=== PATIENT | male | born 1940 | race Caucasian/White ===

== ENCOUNTER 2023-04-14 10:20 | Outpatient (OUT) | payer MEDICARE, SELFPAY ==
[2023-04-14 11:19] LABS: Anion Gap 11.1; BUN Creatinine Ratio 19.9; Calcium 9.2 mg/dL (8.5-10.1); Carbon Dioxide 30.8 mmol/L (21.0-32.0); Chloride 103 mmol/L (98-107); Estimated GFR (African America 28 (>=60); Estimated GFR (Non-African Ame 23 (>=60); Glucose 108 mg/dL (74-106); Potassium 3.9 mmol/L (3.5-5.1); Sodium 141 mmol/L (136-145)
== END 2023-04-14 10:21 | disposition home or self-care (01) ==
LOC: LAB 10:23
PROVIDERS: PCP Internal Medicine; Visit Provider Nurse Practitioner
DX: I50.22 Chronic systolic (congestive) heart failure (principal)
CPT/HCPCS: 36415; 80048

== ENCOUNTER 2023-04-21 10:19 | Outpatient (OUT) | payer MEDICARE, SELFPAY ==
[2023-04-21 12:09] LABS: Free T4 0.92 ng/dL (0.76-1.46)
[2023-04-22 04:11] LABS: Triiodothyronine (T3) 67 ng/dL (71-180)
== END 2023-04-21 10:20 | disposition home or self-care (01) ==
LOC: LAB 10:20
PROVIDERS: PCP Internal Medicine; Visit Provider Internal Medicine
DX: E03.2 Hypothyroidism due to medicaments and other exogenous substances (principal)
CPT/HCPCS: 36415; 84439; 84443; 84480

== ENCOUNTER 2023-04-21 10:42 | Outpatient (OUT) | payer MEDICARE, SELFPAY ==
[2023-04-21 11:25] LABS: Anion Gap 12.6; BUN Creatinine Ratio 20.4; Calcium 8.8 mg/dL (8.5-10.1); Carbon Dioxide 29.2 mmol/L (21.0-32.0); Chloride 101 mmol/L (98-107); Estimated GFR (African America 28 (>=60); Estimated GFR (Non-African Ame 23 (>=60); Glucose 129 mg/dL (74-106); Potassium 3.8 mmol/L (3.5-5.1); Sodium 139 mmol/L (136-145)
== END 2023-04-21 10:43 | disposition home or self-care (01) ==
LOC: LAB 10:43
PROVIDERS: PCP Internal Medicine; Visit Provider Nurse Practitioner
DX: E03.2 Hypothyroidism due to medicaments and other exogenous substances (principal); I50.22 Chronic systolic (congestive) heart failure
CPT/HCPCS: 36415; 80048; 84439; 84443; 84480

== ENCOUNTER 2023-05-25 08:33 | Outpatient (OUT) | payer MEDICARE, SELFPAY ==
[2023-05-25 09:22] LABS: Anion Gap 14.3; BUN Creatinine Ratio 19.7; Calcium 8.7 mg/dL (8.5-10.1); Carbon Dioxide 29.7 mmol/L (21.0-32.0); Chloride 101 mmol/L (98-107); Estimated GFR (African America 32 (>=60); Estimated GFR (Non-African Ame 26 (>=60); Glucose 131 mg/dL (74-106); Magnesium 2.2 mg/dL (1.8-2.4); Phosphorus 4.1 mg/dL (2.6-4.7); Sodium 141 mmol/L (136-145)
[2023-05-25 09:28] LABS: Hematocrit 39.5 % (42.0-54.0); Mean Corpuscular HGB Conc 32.9 g/dL (29.9-35.2); Mean Corpuscular Hemoglobin 30.9 pg (25.9-34.0); Mean Corpuscular Volume 93.8 fL (80.0-94.0); Mean Platelet Volume 9.8 fL (9.5-13.5); Platelet Count 196 10^3/uL (150-450); Red Blood Count 4.21 10^6/uL (4.70-6.10); Red Cell Distribution Width 14.8 % (11.0-15.0); White Blood Count 7.6 10^3/uL (4.0-11.0)
[2023-05-25 09:52] LABS: Bilirubin Urine NEGATIVE (NEGATIVE); Blood Urine NEGATIVE (NEGATIVE); Clarity Urine CLEAR (CLEAR); Color Urine LT. YELLOW (YELLOW); Glucose Urine UA NEGATIVE (NEGATIVE); Ketones Urine NEGATIVE (NEGATIVE); Leukocyte Esterase Urine NEGATIVE (NEGATIVE); Nitrite Urine NEGATIVE (NEGATIVE); Protein Urine NEGATIVE (NEG/TRACE); Urobilinogen Urine 0.2 EU/dL (0.2-1.0)
[2023-05-25 10:30] LABS: Creatinine Urine Random 21.98 mg/dL (20.00-300.00); Protein Creatinine Ratio Urine 0.84; Total Protein Urine Random 18.5 mg/dL (<=11.9)
[2023-05-26 11:12] LABS: PTH, Intact 73 pg/mL (15-65)
== END 2023-05-25 08:34 | disposition home or self-care (01) ==
LOC: LAB 08:33
PROVIDERS: PCP Internal Medicine
DX: N18.4 Chronic kidney disease, stage 4 (severe) (principal)
CPT/HCPCS: 36415; 80048; 81003; 82306; 82570; 83735; 83970; 84100; 84156; 85027

== ENCOUNTER 2023-06-06 08:35 | Outpatient (OUT) | payer MEDICARE, SELFPAY ==
[2023-06-06 09:48] LABS: Anion Gap 11.3; BUN Creatinine Ratio 21.9; Calcium 8.7 mg/dL (8.5-10.1); Carbon Dioxide 30.4 mmol/L (21.0-32.0); Chloride 99 mmol/L (98-107); Estimated GFR (African America 28 (>=60); Estimated GFR (Non-African Ame 23 (>=60); Glucose 188 mg/dL (74-106); Potassium 3.7 mmol/L (3.5-5.1); Sodium 137 mmol/L (136-145)
== END 2023-06-06 08:36 | disposition home or self-care (01) ==
LOC: LAB 08:36
PROVIDERS: PCP Internal Medicine; Visit Provider Nurse Practitioner
DX: I50.41 Acute combined systolic (congestive) and diastolic (congestive) heart failure (principal)
CPT/HCPCS: 36415; 80048

== ENCOUNTER 2023-06-13 09:28 | Outpatient (OUT) | payer MEDICARE, SELFPAY ==
--- NOTE | 2023-06-13 09:32 | XR_ITS ---
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 TECHNIQUE: PA and lateral views of the chest. FINDINGS: The cardiomediastinal silhouette is enlarged. Left-sided cardiac pacemaker. No focal consolidation is identified. There is no pneumothorax. No pleural effusion is noted. The osseous structures are intact. XR/XR chest 2V IMPRESSION: Cardiomegaly. Electronically authenticated by: MICHAELA NGUYEN Date: 06/13/2023 09:49
== END 2023-06-13 09:29 | disposition home or self-care (01) ==
LOC: RAD 09:28
PROVIDERS: PCP Internal Medicine; Visit Provider Internal Medicine Cardiovascular Disease
DX: I42.0 Dilated cardiomyopathy (principal)
CPT/HCPCS: 71046

== ENCOUNTER 2023-06-30 14:46 | Outpatient (OUT) | payer MEDICARE, SELFPAY ==
[2023-06-30 15:39] LABS: Free T4 0.86 ng/dL (0.76-1.46)
[2023-07-01 05:07] LABS: Triiodothyronine (T3) 68 ng/dL (71-180)
== END 2023-06-30 14:47 | disposition home or self-care (01) ==
LOC: LAB 14:46
PROVIDERS: PCP Internal Medicine; Visit Provider Internal Medicine
DX: E03.2 Hypothyroidism due to medicaments and other exogenous substances (principal)
CPT/HCPCS: 36415; 84439; 84443; 84480

== ENCOUNTER 2023-06-30 14:49 | Outpatient (OUT) | payer MEDICARE, SELFPAY ==
[2023-06-30 15:25] LABS: Anion Gap 5.9; BUN Creatinine Ratio 25.6; Calcium 9.3 mg/dL (8.5-10.1); Carbon Dioxide 35.1 mmol/L (21.0-32.0); Chloride 102 mmol/L (98-107); Estimated GFR (African America 31 (>=60); Estimated GFR (Non-African Ame 25 (>=60); Glucose 97 mg/dL (74-106); Sodium 139 mmol/L (136-145)
== END 2023-06-30 14:50 | disposition home or self-care (01) ==
LOC: LAB 14:50
PROVIDERS: PCP Internal Medicine; Visit Provider Internal Medicine Nephrology
DX: E03.2 Hypothyroidism due to medicaments and other exogenous substances (principal); N18.4 Chronic kidney disease, stage 4 (severe)
CPT/HCPCS: 36415; 80048; 84439; 84443; 84480

== ENCOUNTER 2023-09-11 09:43 | Outpatient (OUT) | payer MEDICARE, SELFPAY ==
--- NOTE | 2023-09-11 11:16 | CA_ITS ---
Patient Name: DELANO REN MR#: [id number] : 1940 Exam Date: 09/11/2023 Ordering Doctor: MRS. MADDI SONG NP ECHOCARDIOGRAM REPORT PROCEDURE: CA ECHO LIMITED INDICATIONS: Chronic systolic heart failure, pace/defib COMPARISON: None. DESCRIPTION: Limited ECHOCARDIOGRAM Real-time transthoracic echocardiography with 2D and M-mode performed. QUALITY: Technical quality was good. Limited echocardiogram per physician order. LEFT VENTRICLE: Severe dilatation. Mild concentric left ventricular hypertrophy. LV EF: Global left ventricular systolic function is severely reduced; visually estimated ejection fraction is 25 to 30%. Calculated left ventricular ejection fraction is 27%. Unable to assess regional wall motion abnormality; consider contrast study for better delineation of endocardial borders. LEFT ATRIUM: Severe dilatation. RIGHT ATRIUM: Severe dilatation. RIGHT VENTRICLE: Appears enlarged. Systolic function appears preserved. Pacer wire present. TRICUSPID VALVE: Normal mobility and thickness. MITRAL VALVE: Normal mobility and thickness. There is no mitral annular calcification. AORTIC VALVE: Normal trileaflet appearance. Multifocal calcifications. AORTIC ROOT: Normal diameter and appearance. PULMONIC VALVE: Normal thickness and mobility. PERICARDIUM: No evidence of pericardial effusion. IVC: IVC is normal in size, does not fully collapse. CONCLUSION: 1. Global left ventricular systolic function is severely reduced; visually estimated ejection fraction is 25 to 30% 2. Severe left ventricular dilatation 3. Mildly increased left ventricular wall thickness 4. The right ventricle appears enlarged with preserved systolic function A limited echocardiogram was performed Adult Echocardiography Procedure Report Left Ventricle LVEDD (3.7 - 5.6 cm): 7.05 cm LVESD (2.2 - 4.0 cm): 5.44 cm LVIVS thickness (0.6 - 1.2 cm): 1.08 cm LVPW thickness (0.5 - 1.0 cm): 1.05 cm LVOT Diameter 2.35 cm Left Atrium LA Volume Index (2D A2C): 49.82 ml/m2 Left Atrium Systolic Dimension: 4.27 cm Mitral Valve Right Ventricle Aorta AO Root Diam: 3.40 cm Ascending Ao Diam: 2.96 cm Aortic Valve Tricuspid Valve Pulmonic Valve Right Atrium Right Atrium Systolic Pressure: 90.73 ml, 90.73 ml Dictated by: Sriram Rick M.D. on 09/12/2023 at 16:08 Approved by: Sriram Rick M.D. on 09/12/2023 at 16:17
== END 2023-09-11 09:44 | disposition home or self-care (01) ==
LOC: CARD 09:43
PROVIDERS: PCP Internal Medicine; Visit Provider Nurse Practitioner Acute Care
DX: I50.22 Chronic systolic (congestive) heart failure (principal)
CPT/HCPCS: 93308

== ENCOUNTER 2023-09-28 08:16 | Outpatient (OUT) | payer MEDICARE, SELFPAY ==
[2023-09-28 09:24] LABS: Thyroid Stimulating Hormone 17.301 uIU/mL (0.358-3.740)
[2023-09-29 04:07] LABS: Triiodothyronine (T3) 72 ng/dL (71-180)
== END 2023-09-28 08:17 | disposition home or self-care (01) ==
LOC: LAB 08:16
PROVIDERS: PCP Internal Medicine; Visit Provider Internal Medicine
DX: E03.2 Hypothyroidism due to medicaments and other exogenous substances (principal)
CPT/HCPCS: 36415; 84439; 84443; 84480

== ENCOUNTER 2023-09-28 08:17 | Outpatient (OUT) | payer MEDICARE, SELFPAY ==
[2023-09-28 08:38] LABS: Basophils Percent Auto 0.4 % (0.2-2.0); Eosinophils Absolute Auto 0.3 10^3/uL (0.0-0.7); Eosinophils Percent Auto 3.7 % (0.9-7.0); Hematocrit 37.4 % (42.0-54.0); Hemoglobin 12.1 g/dL (14.0-18.0); Immature Granulocytes Abs Auto 0.02 10^3/uL (0.00-0.03); Immature Granulocytes Pct Auto 0.3 % (0.0-0.5); Lymphocytes Absolute Auto 1.5 10^3/uL (1.2-3.8); Lymphocytes Percent Auto 20.4 % (20.5-60.0); Mean Corpuscular HGB Conc 32.4 g/dL (29.9-35.2); Mean Corpuscular Hemoglobin 31.1 pg (25.9-34.0); Mean Corpuscular Volume 96.1 fL (80.0-94.0); Mean Platelet Volume 9.1 fL (9.5-13.5); Monocytes Absolute Auto 0.6 10^3/uL (0.3-0.8); Monocytes Percent Auto 8.6 % (1.7-12.0); Neutrophils Absolute Auto 4.9 10^3/uL (1.4-6.5); Neutrophils Percent Auto 66.6 % (43.0-75.0); Platelet Count 189 10^3/uL (150-450); Red Blood Count 3.89 10^6/uL (4.70-6.10); Red Cell Distribution Width 13.8 % (11.0-15.0); White Blood Count 7.3 10^3/uL (4.0-11.0)
[2023-09-28 08:45] LABS: Bilirubin Urine NEGATIVE (NEGATIVE); Blood Urine NEGATIVE (NEGATIVE); Clarity Urine CLEAR (CLEAR); Color Urine LT. YELLOW (YELLOW); Glucose Urine UA NEGATIVE (NEGATIVE); Ketones Urine NEGATIVE (NEGATIVE); Leukocyte Esterase Urine SMALL (NEGATIVE); Nitrite Urine NEGATIVE (NEGATIVE); Protein Urine NEGATIVE (NEG/TRACE); Urobilinogen Urine 0.2 EU/dL (0.2-1.0); pH Urine 5.5 (5.0-9.0)
[2023-09-28 09:11] LABS: Creatinine Urine Random 19.63 mg/dL (20.00-300.00); Protein Creatinine Ratio Urine 0.43; Total Protein Urine Random 8.5 mg/dL (<=11.9)
[2023-09-28 09:12] LABS: Anion Gap 8.5; Calcium 8.9 mg/dL (8.5-10.1); Carbon Dioxide 35.2 mmol/L (21.0-32.0); Chloride 99 mmol/L (98-107); Estimated GFR (African America 32 (>=60); Estimated GFR (Non-African Ame 27 (>=60); Glucose 149 mg/dL (74-106); Magnesium 2.3 mg/dL (1.8-2.4); Phosphorus 3.6 mg/dL (2.6-4.7); Potassium 3.7 mmol/L (3.5-5.1); Sodium 139 mmol/L (136-145)
[2023-09-29 12:02] LABS: PTH, Intact 47 pg/mL (15-65)
== END 2023-09-28 08:18 | disposition home or self-care (01) ==
LOC: LAB 08:19
PROVIDERS: PCP Internal Medicine; Visit Provider Internal Medicine Nephrology
DX: E03.2 Hypothyroidism due to medicaments and other exogenous substances (principal); N18.4 Chronic kidney disease, stage 4 (severe)
CPT/HCPCS: 36415; 80048; 81003; 82306; 82570; 83735; 83970; 84100; 84156; 84439; 84443; 84480; 85025

== ENCOUNTER 2023-12-19 07:32 | Outpatient (OUT) | payer MEDICARE, SELFPAY ==
--- OUTSIDE RECORDS SUMMARY | 2023-12-19 07:35 | XMS_ITS | CCD ---
Author Name Unknown Address [address] [place] [address] Organization [facility] Care Team Providers Care Loom Blower Name Role Phone GILMER SALAZAR Attending Unavailable GILMER SALAZAR Admitting Unavailable ARNIE LINDA Referring Unavailable ARNIE LINDA Primary Care Unavailable DO Arnie Linda Primary Care Provider CHARLENE Kelly Attending Provider MD Kalia Sánchez Referring Provider DO Chivo Keller II Attending Provider MD Kalia Sánchez Referring Provider [phone] DO Chivo Keller II Attending Provider MD Ramesh Rascon Attending Provider [phone] DO Arnie Linda Primary Care Provider [phone] MD Ramesh Rascon Attending Provider MD Kalia Sánchez Referring Provider DO Chivo Keller II Attending Provider Arnie Linda Unavailable LAURAROXANNE Admitting Unavailable LAURA, ROXANNE Attending Unavailable LAURA, ROXANNE Consulting Unavailable MADDI, DR SORENSON Primary Care Unavailable MISC, DR VELASQUEZ Consulting Unavailable MISC, DR VELASQUEZ Admitting Unavailable MISC, DR VELASQUEZ Attending Unavailable MADDI, DR SORENSON Primary Care Unavailable GRIGSBY ., DR RUPINDER Staples Admitting Unavailable GRIGSBY ., DR RUPINDER Staples Attending Unavailable RUCKER, DR MICHAELA Jacobson Consulting Unavailable MADDI, DR SORENSON Primary Care Unavailable GRIGSBY ., DR RUPINDER Staples Consulting Unavailable SHARA, NICK Consulting Unavailable ANTHONY TRACEY Consulting Unavailable MADDI, DR SORENSON Consulting Unavailable BALL, DR SORENSON Primary Care Unavailable BALL, DR SORENSON Admitting Unavailable BALL, DR SORENSON Attending Unavailable MISC, DR VELASQUEZ Consulting Unavailable MISC, DR VELASQUEZ Admitting Unavailable MISC, DR VELASQUEZ Attending Unavailable BALL, DR SORENSON Primary Care Unavailable BALL, DR SORENSON Consulting Unavailable BALL, DR SORENSON Primary Care Unavailable BALL, DR SORENSON Admitting Unavailable BALL, DR SORENSON Attending Unavailable BALL, DR SORENSON Primary Care Unavailable BALL, DR SORENSON Consulting Unavailable BALL, DR SORENSON Admitting Unavailable BALL, DR SORENSON Attending Unavailable LORI, ENRRIQUE Admitting Unavailable LORI, ENRRIQUE Attending Unavailable LORI, ENRRIQUE Consulting Unavailable BALL, DR SORENSON Primary Care Unavailable KUNAL BUTLER, AVERY Pedroza Admitting Unavailab shaina SYED MD, AVERY Pedroza Attending Unavailab le MISC, DR VELASQUEZ Consulting Unavailable BALL, DR SORENSON Primary Care Unavailable BALL, DR SORENSON Consulting Unavailable BALL, DR SORENSON Admitting Unavailable BALL, DR SORENSON Primary Care Unavailable BALL, DR SORENSON Attending Unavailable MISC, DR VELASQUEZ Consulting Unavailable MISC, DR VELASQUEZ Admitting Unavailable MISC, DR VELASQUEZ Attending Unavailable BALL, DR SORENSON Primary Care Unavailable BALL, DR SORENSON Consulting Unavailable BALL, DR SORENSON Admitting Unavailable BALL, DR SORENSON Attending Unavailable BALL, DR SORENSON Primary Care Unavailable MISC, DR VELASQUEZ Consulting Unavailable MISC, DR VELASQUEZ Admitting Unavailable MISC, DR VELASQUEZ Attending Unavailable BALL, DR SORENSON Primary Care Unavailable BALL, DR SORENSON Attending Unavailable BALL, DR SORENSON Consulting Unavailable BALL, DR SORENSON Primary Care Unavailable BALL, DR SORENSON Admitting Unavailable MISC, DR VELASQUEZ Consulting Unavailable MISC, DR VELASQUEZ Admitting Unavailable MISC, DR VELASQUEZ Attending Unavailable BALL, DR SORENSON Primary Care Unavailable MOUKARBEL, DR SEYMOUR Consulting Unavailable MISC, DR VELASQUEZ Admitting Unavailable MISC, DR VELASQUEZ Attending Unavailable WEST, JJ Valdes Consulting Unavailable BALL, DR SORENSON Primary Care Unavailable MISC, DR VELASQUEZ Consulting Unavailable BALL, DR SORENSON Attending Unavailable BALL, DR SORENSON Consulting Unavailable BALL, DR SORENSON Primary Care Unavailable BALL, DR SORENSON Admitting Unavailable ZIEBER, DR MALENA Jacobson Consulting Unavailable BALL, DR SORENSON Attending Unavailable BALL, DR SORENSON Consulting Unavailable BALL, DR SORENSON Primary Care Unavailable BALL, DR SORENSON Admitting Unavailable LORI, ENRRIQUE Admitting Unavailable LORI, ENRRIQUE Attending Unavailable BALL, DR SORENSON Primary Care Unavailable BALL, DR SORENSON Consulting Unavailable LAURA, ROXANNE Admitting Unavailable LAURA, ROXANNE Attending Unavailable BALL, DR SORENSON Primary Care Unavailable KUNAL BUTLER, AVERY Pedroza Admitting Unavailab shaina SYED MD, AVERY Pedroza Attending Unavailab shaina SYED MD, AVERY Pedroza Consulting Unavailab shaina LINDA, DR SORENSON Primary Care Unavailable MOUKARBEL, DR SEYMOUR Admitting Unavailable MOUKARBEL, DR SEYMOUR Attending Unavailable BALL, DR SORENSON Primary Care Unavailable Adamowicz IIChivo Admitting Unavaila Kalia Gibson Referring Unavailable Arnie Linda Primary Care Unavailable Arianna APARICIO, Chivo Howell Attending Unavaila DO Arnie Tom Primary Care Provider [phone] MD Kalia Sánchez Referring Provider [phone] Arianna APARICIO, DO Chivo Howell Attending Provider MARIUSZ DEGROOT Referring Unavailable YISSEL, DAWN Attending Unavailable SHAUN ISABEL Attending Unavailable MARIUSZ DEGROOT Referring Unavailable MARIUSZ DEGROOT Admitting Unavailable MARIUSZ DEGROOT Attending Unavailable DAWN NOLASCO Attending Unavailable MARIUSZ DEGROOT Referring Unavailable MADDI SONG Attending Unavailable MALI TIDWELL Attending Unavailable MIKAYLA, MARIUSZ Attending Unavailable MADDI SONG Attending Unavailable Allergies Allergy Classification Reported Allergen(s) Allergy Type Date of Onset Reaction(s) Facility (3 sources) black walnut pollen extract; Translations: [[id number] REDUCTASE INHIBITORS] Drug Allergy 05-16-20 18 [facility] Repository (9 sources) traMADol; Translations: [TRAMADOL] Drug Allergy 03-30-20 22 Itching [facility] Repository (7 sources) Vdgopjn-DBI-JwT Reductase Inhibitor; Translations: [Xmysvfw-YCN-AjA Reductase Inhibitor] Allergy to substance 06-03-20 22 Muscle Pain [facility] (13 sources) Albuterol Drug Allergy Unknown Generate Other (17 sources) ezetimibe Drug Allergy Unknown Generate Other (13 sources) HMG-CoA reductase inhibitor Drug allergy Unknown Generate Other (19 sources) Niacin Drug Allergy Unknown Generate Other (17 sources) Simvastatin Drug Allergy Unknown Generate Other (8 sources) Statins Depletion *DIETARY PRODUCTS/DIETARY MANAGE Propensity to adverse reactions Unknown Generate Other (4 sources) Allergies Reconciled Propensity to adverse reactions Unknown Generate Other (8 sources) Albuterol *ANTIASTHMATIC AND BRONCHODILATOR AGENTS Propensity to adverse reactions Comment:dedrick lala more with this Generate Other (4 sources) patient allergy list reviewed by nurse or physicia Propensity to adverse reactions 04-04-20 Comment:Done Generate Other (1 source) traMADol Drug Allergy 03-03-20 [facility] Repository (2 sources) Niacin Drug Allergy Unknown Generate Other Medications Current Medications Medication Drug Class(es) Dates Sig (Normalized) Sig (Original) allopurinol 100 mg oral tablet (20 sources) Xanthine Oxidase Inhibitor Start: 06-09-2021 take 100 mg by mouth once daily Allopurinol Active 100 MG PO Daily June 08, 2021 11:00pm amLODIPine 10 mg oral tablet (20 sources) Dihydropyridine Calcium Channel Benton Start: 07-21-2022 take 10 mg by mouth once daily Amlodipine Active 10 MG PO Daily July 20, 2022 11:00pm Start: 08-02-2021 End: 08-31-2021 take 10 mg by mouth once daily Amlodipine Discontinued 10 MG PO Daily August 01, 2021 11:00pm August 31, 2021 8:54am Start: 06-09-2021 End: 08-02-2021 take 5 mg by mouth once daily Amlodipine Discontinued 5 MG PO Daily June 08, 2021 11:00pm August 02, 2021 12:35pm apixaban 2.5 mg oral tablet (11 sources) Factor Xa Inhibitor Start: 03-03-2023 take 1 tablet by mouth twice daily Apixaban (Eliquis) 2.5 mg Tablet Active 2.5 MG PO Twice daily March 02, 2023 11:00pm Aspir-81 (7 sources) Aspir-81 Active bumetanide 1 mg oral tablet (20 sources) Loop Diuretic Start: 08-02-2021 take 1 mg by mouth once daily Bumetanide Active 1 MG PO Daily August 02, 2021 12:40pm Start: 06-09-2021 End: 08-02-2021 Bumetanide Discontinued 1 MG PO Q48H 15 June 08, 2021 11:00pm August 02, 2021 12:40pm Bumex 1 MG 2 Ora lly Once a day Active cholecalciferol 0.125 mg oral capsule (8 sources) Vitamin D Start: 06-09-2021 take 125 ug by mouth once daily Cholecalciferol (Vitamin D3) Active 125 MCG PO Daily June 08, 2021 11:00pm take 4 tablets by mo uth every twenty-four hours Vitamin D3 125 MCG (5000 UT) 4 tablet Orally Once a day Active Contour Next Test - (17 sources) Contour Next Wendi t - as directed In Vitro Active ezetimibe 10 mg oral tablet (11 sources) Dietary Cholesterol Absorption Inhibitor Start: take 1 tablet by mouth once daily Ezetimibe (Zetia) 10 mg Tablet Active 10 MG PO Daily March 02, 2023 11:00pm hydrALAZINE hydrochloride 100 mg oral tablet (20 sources) Arteriolar Vasodilator Start: take 100 mg by mouth three times daily Hydralazine Active 100 MG PO Three times daily June 08, 2021 11:00pm Start: 06-09-2021 End: 08-02-2021 take 100 mg by mouth three times daily Hydralazine Discontinued 100 MG PO Three times daily June 08, 2021 11:00pm August 02, 2021 12:38pm isosorbide dinitrate 10 mg oral tablet (20 sources) Nitrate Vasodilator Start: 07-21-2022 take 10 mg by mouth three times daily Isosorbide Dinitrate Active 10 MG PO Three times daily July 20, 2022 11:00pm Start: 06-09-2021 End: 08-31-2021 take 10 mg by mouth three times daily Isosorbide Dinitrate Discontinued 10 MG PO Three times daily June 08, 2021 11:00pm August 31, 2021 8:56am methIMAzole 10 mg oral tablet (20 sources) Thyroid Hormone Synthesis Inhibitor Start: 10-06-2022 take 0.5 tablet by mouth once daily methIMAzole 10 MG 1/2 tablet Orally Once a day Sep, Active Start: 02-25-2022 take 20 mg by mouth twice rohan y Methimazole Active 20 MG PO Twice daily February 24, 2022 11:00pm 24 hr metoprolol succinate 50 mg extended release oral tablet (20 sources) beta-Adrenergic Benton Start: 08-02-2021 take 100 mg by mouth once daily Metoprolol Succinate Active 100 MG PO Daily August 01, 2021 11:00pm Start: 06-09-2021 End: 08-02-2021 take 25 mg by mouth once daily Metoprolol Succinate Di scontinued 25 MG PO Daily June 08, 2021 11:00pm August 02, 2021 12:37pm take 1 tablet by dakotah th every twenty-four hours Metoprolol Succinate ER 100 MG 1 tablet Orally Once a day Active niacin 500 mg oral tablet (20 sources) Nicotinic Acid Start: 06-09-2021 take 500 mg by mouth once daily Niacin Active 500 MG PO Daily June 08, 2021 11:00pm paxlovid (300/100) 20 x 150 mg & 10 x 100mg tablet therapy pack (2 sources) Start: 01-11-2023 take 3 tablets by mouth every twelve hours Paxlovid (300/100) 20 x 150 MG & 10 x 100MG 3 tablets Orally Twice a day for 5 day(s) Dec, Active potassium chloride 10 meq extended release oral tablet (20 sources) Start: 06-09-2021 Potassium Chloride (Klor-Con 10) 10 mEq Tablet Extended Release Active 10 MEQ PO Daily June 08, 2021 11:00pm 30 actuat umeclidinium 0.0625 mg/actuat / vilanterol 0.025 mg/actuat dry powder inhaler (17 sources) Anticholinergic, beta2-Adrenergic Agonist Anoro Ellipta 62.5-25 MCG/ACT USE 1 INHALATION BY MOUTH DAILY Active Anoro Ellipta 62 .5-25 MCG/ACT USE 1 INHALATION BY MOUTH DAILY Active Vitamin D3 125 MCG (5000 UT) (15 sources) take 4 tablets by mouth once daily Vitamin D3 125 MCG (5000 UT) 4 tablet Orally Once a day Active {20 (nirmatrelvir 150 MG Oral Tablet) / 10 (ritonavir 100 MG Oral Tablet) } Pack [Paxlovid 5-Day] (12 sources) Start: 01-11-2023 take 3 tablets by mouth every twelve hours Paxlovid (300/100) 20 x 150 MG & 10 x 100MG 3 tablets Orally Twice a day for 5 day(s) Dec, Active Completed/Discontinued Medications Medication Drug Class(es) Dates Sig (Normalized) Sig (Original) acetaminophen 500 mg oral tablet (6 sources) Start: 06-09-2021 End: 07-14-2021 take 500 mg by mouth every six hours Acetaminophen Discontinued 500 MG PO Q6H 120 30 June 08, 2021 11:00pm July 14, 2021 7:42am acetaminophen 325 mg / HYDROcodone bitartrate 5 mg oral tablet (6 sources) Opioid Agonist Start: 08-22-2021 End: 08-31-2021 take 1 tablet by mouth every six hours Hydrocodone-Acetami nophen Discontinued 1 TAB PO Q6H 28 7 August 22, 2021 August 31, 2021 8:56am Anoro Ellipta (12 sources) Start: 08-02-2021 End: 03-03-2023 take 62.5 ug by inhalation once daily Anoro Ellipta Discontinued 62.5 MCG INHALATION Daily August 02, 2021 12:40pm March 03, 2023 12:44pm Start: 08-02-2021 take 62.5 ug by inha lation once daily Anoro Ellipta Active 62.5 MCG INHALATION Daily August 02, 2021 12:40pm Start: 08-02-2021 take 62.5 ug by inha lation once daily Anoro Ellipta Active 62.5 MCG INHALATION Daily August 02, 2021 1:40pm Start: 06-09-2021 End: 08-02-2021 take 62.5 ug by inhalation once daily Anoro Ellipta Discontinued 62.5 mcg inhalation Daily 0 June 08, 2021 11:00pm August 02, 2021 12:40pm Start: 06-09-2021 End: 08-02-2021 take 62.5 ug by inhalation once daily Anoro Ellipta Discontinued 62.5 mcg inhalation Daily 0 June 09, 2021 12:00am August 02, 2021 1:40pm aspirin 81 mg delayed release oral tablet (20 sources) Platelet Aggregation Inhibitor, Nonsteroidal Anti-inflammatory Drug Start: 02-25-2022 End: 09-01-2023 take 81 mg by mouth once daily Aspirin Discontinued 81 MG PO Daily February 24, 2022 11:00pm September 01, 2023 1:51pm Start: 06-09-2021 End: 08-02-2021 take 81 mg by mouth once daily Aspirin Discontinued 81 MG PO Daily June 08, 2021 11:00pm August 02, 2021 12:37pm take 1 tablet by dakotah th once daily as needed Aspirin 325 mg 325 mg one tab orally daily Not-Taking/PRN take 1 tablet by dakotah th once daily Aspirin 325 mg 325 mg one tab orally daily Not-Taking benazepril hydrochloride 40 mg oral tablet (17 sources) Angiotensin Converting Enzyme Inhibitor take 1 tablet by mouth every twenty-four hours Benazepril HCl 40 MG 1 tablet Orally Once a day Not-Taking/PRN Budesonide (20 sources) Corticosteroid Start: End: Budesonide (Pulmicort Flexhaler) 180 mcg/actuation aerosol powdr breath activated Discontinued 360 MCG INHALATION Twice daily August 01, 2021 11:00pm March 03, 2023 12:44pm Start: 08-02-2021 Budesonide (Pu lmicort Flexhaler) 180 mcg/actuation aerosol powdr breath activated Active 360 MCG INHALATION Twice daily August 01, 2021 11:00pm Start: 08-02-2021 Budesonide (Pu lmicort Flexhaler) 180 mcg/actuation aerosol powdr breath activated Active 360 MCG INHALATION Twice daily August 02, 2021 12:00am Start: 06-09-2021 End: 08-02-2021 take 360 ug by inhalation twice daily Budesonide Inhalation Discontinued 360 mcg inhalation Twice daily June 08, 2021 11:00pm August 02, 2021 12:40pm Start: 06-09-2021 End: 08-02-2021 take 360 ug by inhalation twice daily Budesonide Inhalation Discontinued 360 mcg inhalation Twice daily June 09, 2021 12:00am August 02, 2021 1:40pm Start: 06-01-2021 End: 06-09-2021 take 180 ug by inhalation twice daily Budesonide (Pulmicort Flexhaler) 180 mcg/actuation Aerosol Powdr Breath Activated Discontinued 2 INH INHALATION Twice daily May 31, 2021 11:00pm June 09, 2021 11:48am Start: 06-01-2021 End: 06-09-2021 take 180 ug by inhalation twice daily Budesonide (Pulmicort Flexhaler) 180 mcg/actuation Aerosol Powdr Breath Activated Discontinued 2 INH INHALATION Twice daily June 01, 2021 12:00am June 09, 2021 12:48pm take 1 puff(s) by in halation twice daily Pulmicort Flexhaler 180 MCG/ACT 1 puff Inhalation Twice a day Active Pulmicort Not-Ta ting/PRN Pulmicort Not-Ta ting carvedilol 25 mg oral tablet (17 sources) alpha-Adrenergic Benton, beta-Adrenergic Benton Carvedilol 25 MG Orally Not-Taking/PRN cefTRIAXone 2000 mg injection (6 sources) Cephalosporin Antibacterial Start: 2020 End: 2020 take 2 g intravenously every twenty-four hours Ceftriaxone Discontinued 2 GM IV Q24H 0 June 08, 2021 11:00pm July 14, 2021 7:41am cloNIDine hydrochloride 0.1 mg oral tablet (17 sources) Central alpha-2 Adrenergic Agonist take 1 tablet by mouth every twenty-four hours cloNIDine HCl 0.1 MG 1 tablet at bedtime Orally Once a day Not-Taking/PRN ferrous sulfate 324 mg delayed release oral tablet (20 sources) Start: 2020 End: 2021 take 324 mg by mouth once daily Ferrous Sulfate Discontinued 324 MG PO Daily June 08, 2021 11:00pm July 21, 2022 7:06am take 1 tablet by dakotah th every twenty-four hours Ferrous Sulfate 325 (65 Fe) MG 1 tablet Orally Once a day Active take 1 tablet by mouth once rohan y Ferrous Sulfate 325 (65 Fe) MG 1 tablet Orally Once a day Active lidocaine 0.04 mg/mg medicated patch (6 sources) Antiarrhythmic, Amide Local Anesthetic Start: 06-09-2021 End: 07-14-2021 apply 1 dose topically once daily Lidocaine (Lidocaine Pain Relief) 4 % Adhesive Patch,Medicated Discontinued 2 PATCH TOPICAL Daily June 08, 2021 11:00pm July 14, 2021 7:41am linagliptin 5 mg oral tablet (17 sources) Dipeptidyl Peptidase 4 Inhibitor take 1 tablet by mouth every twenty-four hours Tradjenta 5 MG 1 tablet Orally Once a day Not-Taking/PRN oxyCODONE hydrochloride 5 mg oral tablet (6 sources) Opioid Agonist Start: 06-09-2021 End: 08-02-2021 take 5 mg by mouth every six hours Oxycodone Discontinued 5 MG PO Q6H 28 June 09, 2021 August 02, 2021 12:40pm polyethylene glycol 3350 49767 mg powder for oral solution (6 sources) Osmotic Laxative Start: 06-09-2021 End: 07-14-2021 Polyethylene Glycol 3350 (Miralax) 17 gram Powder In Packet Discontinued 17 GM PO Daily June 08, 2021 11:00pm July 14, 2021 7:40am propranolol hydrochloride 10 mg oral tablet (6 sources) beta-Adrenergic Benton Start: 02-25-2022 End: 07-21-2022 take 1 tablet by mouth three times daily Propranolol (Inderal) 10 mg Tablet Discontinued 10 MG PO Three times daily February 24, 2022 11:00pm July 21, 2022 7:06am Triamcinolone (20 sources) Corticosteroid Start: 04-29-2021 Kenalog -40 mg Apr, 40 mg Start: 05-09-2019 Kenalog -40 mg Apr, 40 mg Start: 01-30-2019 Kenalog -40 mg Jan, 40 mg Problems Active Problems Problem Classification Problem Date Documented Da te Episodic/Chronic Acute posthemorrhagic anemia (11 sources) Acute posthemorrhagic anemia; Translations: [Acute posthemorrhagic anemia] Episodic Administrative/social admission (6 sources) Other reduced mobility; Translations: [Impaired mobility and activities of daily living] 08-31-2021 Episodic Asthma (6 sources) Uncomplicated moderate persistent asthma; Translations: [Moderate persistent asthma, uncomplicated] Onset: 12-22-2022 Chronic Bacterial infection; unspecified site (14 sources) Bacteremia caused by Gram-positive bacteria; Translations: [Bacteremia] Onset: 03-27-2018 Resolved: 10-06-2022 08-31-2021 Episodic Cancer of colon (20 sources) Malignant tumor of colon; Translations: [Malignant neoplasm of colon, unspecified] Onset: 09-01-2023 08-31-2021 Chronic Cardiac dysrhythmias (20 sources) Atrial fibrillation; Translations: [Unspecified atrial fibrillation] Onset: 03-09-2022 08-31-2021 Chronic Chronic kidney disease (20 sources) Chronic kidney disease stage 3; Translations: [Stage 3 chronic kidney disease] Onset: 03-01-2015 08-31-2021 Chronic Chronic kidney disease (2 sources) Chronic kidney disease; Translations: [Chronic kidney disease, stage 3b] Onset: 06-09-2022 Chronic obstructive pulmonary disease and bronchiectasis (20 sources) Chronic obstructive lung disease; Translations: [Chronic obstructive pulmonary disease, unspecified] Onset: 03-19-2018 08-31-2021 Chronic Conduction disorders (20 sources) Cardiac pacemaker in situ; Translations: [Presence of cardiac pacemaker] Onset: 01-15-2020 08-31-2021 Chronic Congestive heart failure; nonhypertensive (20 sources) Heart failure with reduced ejection fraction; Translations: [Unspecified systolic (congestive) heart failure] Onset: 03-09-2022 08-31-2021 Chronic Coronary atherosclerosis and other heart disease (9 sources) Coronary arteriosclerosis; Translations: [Atherosclerotic heart disease of [place] coronary artery without angina pectoris] Onset: 03-09-2022 08-31-2021 Chronic Deficiency and other anemia (6 sources) Iron deficiency anemia; Translations: [Iron deficiency anemia, unspecified] 08-31-2021 Episodic Deficiency and other anemia (2 sources) Iron deficiency anemia, unspecified; Translations: [IRON DEFICIENCY ANEMIA UNSPECIFIED] Onset: 03-09-2022 Episodic Diabetes mellitus with complications (20 sources) Hyperglycemia due to type 2 diabetes mellitus; Translations: [Type 2 diabetes mellitus with hyperglycemia] Onset: 10-16-1957 Chronic Diabetes mellitus without complication (10 sources) Type 2 diabetes mellitus; Translations: [Type 2 diabetes mellitus without complications] 08-31-2021 Chronic Disorders of lipid metabolism (20 sources) Hypercholesterolemia; Translations: [Pure hypercholesterolemia, unspecified] Onset: 10-16-1959 08-31-2021 Chronic Essential hypertension (20 sources) Hypertensive disorder; Translations: [Essential (primary) hypertension] Onset: 06-09-2022 08-31-2021 Chronic Fluid and electrolyte disorders (7 sources) Hypokalemia; Translations: [Hypokalemia] Episodic Gout and other crystal arthropathies (4 sources) Primary gout; Translations: [Acute gouty arthropathy] Onset: 03-13-2019 Chronic Hyperplasia of prostate (8 sources) Lower urinary tract symptoms due to benign prostatic hypertrophy; Translations: [Benign prostatic hyperplasia with lower urinary tract symptoms] Onset: 01-01-2015 Chronic Hypertension with complications and secondary hypertension (12 sources) Chronic kidney disease due to hypertension; Translations: [Hypertensive chronic kidney disease with stage 1 through stage 4 chronic kidney disease, or unspecified chronic kidney disease] Onset: 03-09-2022 Chronic Immunizations and screening for infectious disease (4 sources) Vaccination given; Translations: [Encounter for immunization] Episodic Infective arthritis and osteomyelitis (except that caused by tuberculosis or sexually transmitted disease) (14 sources) Osteomyelitis of vertebra; Translations: [Osteomyelitis of vertebra, lumbar region] Resolved: 10-06-2022 08-31-2021 Chronic Neoplasms of unspecified nature or uncertain behavior (6 sources) Neoplasm of colon; Translations: [Neoplasm of unspecified behavior of digestive system] 08-31-2021 Episodic Nutritional deficiencies (1 source) 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; 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] Onset: 05-18-2022 Chronic Osteoarthritis (20 sources) Osteoarthritis of knee; Translations: [Unilateral primary osteoarthritis, left knee] Chronic Other and unspecified benign neoplasm (7 sources) History of polyp of colon; Translations: [Personal history of colonic polyps] Episodic Other connective tissue disease (17 sources) History of arthroplasty of left knee; Translations: [Presence of left artificial knee joint] Chronic Other connective tissue disease (17 sources) Iliopsoas abscess; Translations: [Psoas muscle abscess] 08-31-2021 Episodic Other diseases of veins and lymphatics (20 sources) Peripheral venous insufficiency; Translations: [Venous insufficiency (chronic) (peripheral)] Episodic Other diseases of veins and lymphatics (1 source) Venous insufficiency (chronic) (peripheral) Episodic Other gastrointestinal disorders (6 sources) Constipation; Translations: [Constipation, unspecified] 08-31-2021 Episodic Other injuries and conditions due to external causes (4 sources) History of fall; Translations: [History of falling] Episodic Other lower respiratory disease (4 sources) Dyspnea; Translations: [Other forms of dyspnea] Episodic Other nervous system disorders (6 sources) Acute postoperative pain; Translations: [Other acute postprocedural pain] 08-31-2021 Episodic Other nutritional; endocrine; and metabolic disorders (4 sources) Obesity; Translations: [Obesity, unspecified] Chronic Other nutritional; endocrine; and metabolic disorders (8 sources) Obese class I; Translations: [Body mass index 33.0-33.9, adult] Onset: 10-16-1959 Chronic Other nutritional; endocrine; and metabolic disorders (17 sources) Hyperuricemia; Translations: [Hyperuricemia without signs of inflammatory arthritis and tophaceous disease] Episodic Other nutritional; endocrine; and metabolic disorders (4 sources) Overweight; Translations: [Overweight] Episodic Other nutritional; endocrine; and metabolic disorders (4 sources) Hyperuricemia without signs of inflammatory arthritis and tophaceous disease; Translations: [Hyperuricemia without signs of inflammatory arthritis and tophaceous disease] Episodic Other nutritional; endocrine; and metabolic disorders (1 source) Hyperuricemia without signs of inflammatory arthritis and tophaceous disease Episodic [place]-; endo-; and myocarditis; cardiomyopathy (except that caused by tuberculosis or sexually transmitted disease) (20 sources) Nonischemic congestive cardiomyopathy; Translations: [Dilated cardiomyopathy] Onset: 04-13-2022 Chronic Pulmonary heart disease (9 sources) Chronic pulmonary heart disease; Translations: [Other chronic pulmonary heart diseases] Onset: 05-23-2018 Chronic Residual codes; unclassified (20 sources) Obstructive sleep apnea syndrome; Translations: [Obstructive sleep apnea (adult) (pediatric)] Chronic Residual codes; unclassified (3 sources) Obstructive sleep apnea (adult) (pediatric) Chronic Residual codes; unclassified (6 sources) Patient encounter status; Translations: [Encounter for prophylactic measures, unspecified] 08-31-2021 Episodic Residual codes; unclassified (6 sources) History of colectomy; Translations: [Acquired absence of other specified parts of digestive tract] 08-31-2021 Episodic Residual codes; unclassified (4 sources) Requires influenza virus vaccination; Translations: [Need for prophylactic vaccination and inoculation, Influenza] Episodic Residual codes; unclassified (4 sources) Tobacco user; Translations: [Tobacco use] Episodic Residual codes; unclassified (2 sources) Other specified health status; Translations: [Other specified health status] Onset: 04-28-2023 Episodic Screening and history of mental health and substance abuse codes (9 sources) Personal history of nicotine dependence; Translations: [History of tobacco use] Onset: 01-18-2017 Episodic Spondylosis; intervertebral disc disorders; other back problems (20 sources) Lumbar spondylosis; Translations: [Spondylosis without myelopathy or radiculopathy, lumbar region] Chronic Spondylosis; intervertebral disc disorders; other back problems (6 sources) Backache; Translations: [Dorsalgia, unspecified] 08-31-2021 Episodic Thyroid disorders (20 sources) Thyrotoxicosis; Translations: [Thyrotoxicosis, unspecified without thyrotoxic crisis or storm] Onset: 03-04-2022 Resolved: 03-14-2022 Chronic Unclassified (1 source) CHRN KIDNEY DISEASE STG 3 UNSP; Translations: [CHRN KIDNEY DISEASE STG 3 UNSP] Onset: 03-09-2022 Unclassified (1 source) CONTACT W/AND (SUSP) EXPOS COVID-19; Translations: [CONTACT W/AND (SUSP) EXPOS COVID-19] Onset: 03-09-2022 Unclassified (2 sources) Longstanding persistent atrial fibrillation; Translations: [Longstanding persistent atrial fibrillation] Onset: 09-22-2023 Past or Other Problems Problem Classification Problem Date Documented Da te Episodic/Chronic Acute and unspecified renal failure (1 source) Acute kidney failure with tubular necrosis; Translations: [ACUTE KIDNEY FAILURE TUBULR NECRSIS] Onset: 05-18-2022 Episodic Cancer of colon (1 source) Personal history of other malignant neoplasm of large intestine; Translations: [PERS HX OTH MALIG NEOPLSM LG INTEST] Onset: 03-09-2022 Episodic Diabetes mellitus without complication (4 sources) Impaired fasting glycemia; Translations: [Impaired fasting glucose] Resolved: 10-06-2022 Episodic Open wounds of head; neck; and trunk (4 sources) Laceration with foreign body of scalp, subsequent encounter; Translations: [Laceration with foreign body of scalp, subsequent encounter] Onset: 12-28-2017 Episodic Other aftercare (1 source) Other senior living (current) drug therapy; Translations: [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] Onset: 03-09-2022 Episodic Other connective tissue disease (4 sources) Pain in limb; Translations: [Pain in soft tissues of limb] Onset: 10-12-2015 Episodic Other ear and sense organ disorders (4 sources) Impacted cerumen; Translations: [Impacted cerumen, bilateral] Resolved: 10-06-2022 Episodic Other lower respiratory disease (4 sources) Other forms of dyspnea; Translations: [OTHER FORMS OF DYSPNEA] Onset: 05-10-2022 Episodic Other nervous system disorders (1 source) Tremor, unspecified; Translations: [TREMOR UNSPECIFIED] Onset: 03-09-2022 Episodic Other non-traumatic joint disorders (4 sources) Arthralgia of the ankle and/or foot; Translations: [Pain in joint, ankle and foot] Onset: 03-13-2019 Episodic Other nutritional; endocrine; and metabolic disorders (4 sources) Simple obesity ; Translations: [Other obesity due to excess calories] Resolved: 02-20-2020 Chronic Other screening for suspected conditions (not mental disorders or infectious disease) (6 sources) Encounter for screening for malignant neoplasm of prostate; Translations: [Blood chemistry abnormal] Onset: 01-03-2023 Resolved: 10-06-2022 Episodic Other skin disorders (4 sources) Sebaceous cyst; Translations: [Sebaceous cyst] Onset: 10-02-2014 Episodic Other upper respiratory infections (4 sources) Acute maxillary sinusitis; Translations: [Acute maxillary sinusitis, unspecified] Onset: 03-27-2018 Episodic Pneumonia (except that caused by tuberculosis or sexually transmitted disease) (7 sources) Pneumonia, unspecified organism; Translations: [Pneumonia] Onset: 03-06-2022 Resolved: 10-06-2022 Episodic Residual codes; unclassified (6 sources) Localized edema; Translations: [Localized edema] Onset: 03-13-2019 Episodic Skin and subcutaneous tissue infections (4 sources) Carbuncle; Translations: [Carbuncle, unspecified] Resolved: 02-23-2021 Episodic Superficial injury; contusion (4 sources) Contusion of other part of head, subsequent encounter; Translations: [Contusion of other part of head, subsequent encounter] Onset: 12-28-2017 Episodic Unclassified (7 sources) Other eosinophilia; Translations: [Other eosinophilia] Viral infection (1 source) COVID-19 Results Test Name Value Interpretation Reference Range Facility Office [place] 09-22-2023 Follow-up visit [id number] Shanti Ren 1940 M Date Provider Department [place] 09/22/2023 [facility] YOUS[facility] Family History Problem Relation Age of Onset Diabetes Mother Heart disease Father Glaucoma Brother Diabetes Maternal Grandmother Clotting disorder Other Family Status - Relation Status Age at Mother Father Brother Maternal Grandmother Other Level of Service:90689 ND OFFICE/OUTPATIENT ESTABLISHED LOW MDM 20-29 MIN Normal [facility] Alanine aminotransferase [En zymatic activity/volume] in Serum or PlasmaOrdered By: Leigha Nelson on 08-30-2023 ALT [Catalytic activity/Vol] 20 U/L 7-52 [facility] Albumin [Mass/volume] in Ser um or Plasma by Bromocresol green (BCG) dye binding methoOrdered By: Leigha Nelson on 08-30-2023 Albumin BCG dye [Mass/Vol] 4.4 g/dL 3.5-5.7 [facility] Alkaline phosphatase [Enzyma tic activity/volume] in Serum or PlasmaOrdered By: Leigha Neslon on 08-30-2023 ALP [Catalytic activity/Vol] 114 U/L 34-104 [facility] Aspartate aminotransferase [ Enzymatic activity/volume] in Serum or PlasmaOrdered By: Leigha Nelson on 08-30-2023 AST [Catalytic activity/Vol] 23 U/L 13-39 [facility] Basophils Auto (Bld) [#/Vol] Ordered By: Leigha Nelson on 08-30-2023 Basophils (Bld) [#/Vol] 0.0 10*3/uL 0.0-0.2 [facility] Basophils/100 WBC Auto (Bld) Ordered By: Leigha Nelson on 08-30-2023 Basophils/100 WBC (Bld) 0.5 % . F [facility] Bilirubin.total [Mass/volume ] in Serum or PlasmaOrdered By: Leigha Nelson on 08-30-2023 Bilirubin [Mass/Vol] 0.8 mg/dL 0.3-1.0 [facility] CT abdomen pelvis wo conon 1 10-30-2022 CT abdomen pelvis wo con [facility] [place] [address] CT Scan Report Signed Patient: Nas Ren MR#: [id number] 24 : 1940 Acct:[id number] Age/Sex: 83 / M ADM Date: 08/30/23 Loc: XT Room: Type: [facility] RCR Attending Dr: Chivo Keller II DO Copies to: Leigha NelsonEDWARD II, DO Ordering Provider: Leigha Rocha EDWARD Nelson Date of Service: 08/30/23 CT/CT chest wo con: surveillance ([id number]) CT/CT abdomen pelvis wo con: surveillance CT CHEST, ABDOMEN AND PELVIS WITHOUT INTRAVENOUS CONTRAST: CLINICAL HISTORY: Colon cancer surveillance. COMPARISON: CT chest, abdomen and pelvis 02/28/2023. TECHNIQUE: TECHNIQUE: Spiral images were obtained through the chest, abdomen and pelvis without the administration of IV contrast. This CT exam was performed using one or more following dose reduction techniques: Automated exposure control, adjustment of the mA and/or kV according to patient size, or use of iterative reconstruction technique. FINDINGS: CT chest: Mediastinum:Pacemaker device is in place. Cardiomegaly is noted. Thoracic aorta is normal in caliber. Pulmonary trunk appears nondilated. No pericardial effusion. Calcified mediastinal and left hilar nodes. The esophagus is grossly unremarkable. Lungs:Emphysematous changes. Mild bibasilar atelectasis/scarring. No consolidation pneumothorax or pleural effusion. Calcified granulomas. Previously identified 1 cm nodule involving the right upper lobe appears now subsolid in nature but appears unchanged in size now seen on series 5 image 75. No new or enlarging suspicious pulmonary nodule is seen. Soft tissues/Bones: Soft tissues demonstrate no acute findings. Osseous structures demonstrate degenerative change. CT abdomen and pelvis: Organs:Suboptimal evaluation due to lack of IV contrast. Liver gallbladder spleen pancreas and left adrenal gland all appear unremarkable other than a punctate splenic granuloma noted.[Small right adrenal adenoma. Kidneys demonstrate no evidence of stone or hydronephrosis. Abdominal aorta appears normal in caliber. GI: Stomach is grossly unremarkable. Small bowel appears nondilated. Right hemicolectomy. No acute colonic abnormality.[ Pelvis:[Urinary bladder is grossly unremarkable. Prostatomegaly. Peritoneum/Retroperit oneum:No free air, free fluid or lymphadenopathy.[ Abd wall/Bones:Abdominal wall demonstrates no acute findings. Osseous structures demonstrate degenerative change.[ CT/CT chest wo con IMPRESSION: No significant change in chest, abdomen or pelvis findings compared to the prior study from 02/28/2023. Impression dictated by: Sotero Scott Jr., Yoon08/30/2023 1:10 PM Dictation Location: [place] [address] Transcribed By: [facility] 08/30/23 1310 Dictated By: Sotero Scott Jr, DO 08/30/23 1304 Signed By: 08/30/23 1310 Normal [facility] Calcium [Mass/volume] in Ser um or PlasmaOrdered By: Leigha Nelson on 08-30-2023 Calcium [Mass/Vol] 9.7 mg/dL 8.6-10.3 [facility] Carbon dioxide, total [Moles /volume] in Serum or PlasmaOrdered By: Leigha Nelson on 08-30-2023 CO2 [Moles/Vol] 35.5 mmol/L 21.0-31.0 [facility] Chloride [Moles/volume] in S alayna or PlasmaOrdered By: Leigha Nelson on 08-30-2023 Chloride [Moles/Vol] 102 mmol/L 98-107 [facility] Complete Blood Count Auto Di ffon 08-30-2023 Basophils (Bld) [#/Vol] 0.0 10*3/uL Normal 0.0-0.2 [facility] Comment on above: Result Comment: PERF ORMED BY: [place] [address] PATHOLOGIST STATION ATTENDANT TRU UMANZOR M.D. Performed By: #### C MP, FE and TIBC, TONY, CBC, CEA #### [facility] [address] [place] [address] [place] Basophils/100 WBC (Bld) 0.5 % Normal . F [facility] Comment on above: Performed By: #### C MP, FE and TIBC, TONY, CBC, CEA #### [facility] [address] [place] [address] [place] Eosinophils (Bld) [#/Vol] 0.3 10*3/uL Normal 0.0-0.45 [facility] Comment on above: Performed By: #### C MP, FE and TIBC, TONY, CBC, CEA #### [address] Eosinophils/100 WBC (Bld) 3.8 % Normal . [facility] Comment on above: Performed By: #### C MP, FE and TIBC, TONY, CBC, CEA #### [address] Erythrocyte distribution width (RBC) [Ratio] 14.8 % Normal 12.0-14.8 [facility] Comment on above: Performed By: #### C MP, FE and TIBC, TONY, CBC, CEA #### [address] Hematocrit (Bld) [Volume fraction] 36.8 % Low 38.8-50.0 [facility] Comment on above: Performed By: #### C MP, FE and TIBC, TONY, CBC, CEA #### [address] Hemoglobin (Bld) [Mass/Vol] 12.3 g/dL Low 13.0-17.0 [facility] Comment on above: Performed By: #### C MP, FE and TIBC, TONY, CBC, CEA #### [address] Lymphocytes (Bld) [#/Vol] 1.5 10*3/uL Normal 1.00-4.8 [facility] Comment on above: Performed By: #### C MP, FE and TIBC, TONY, CBC, CEA #### [address] Lymphocytes/100 WBC (Bld) 21.9 % Normal . [facility] Comment on above: Performed By: #### C MP, FE and TIBC, TONY, CBC, CEA #### [address] MCH (RBC) [Entitic mass] 30.9 pg Normal 27.5-35.2 [facility] Comment on above: Performed By: #### C MP, FE and TIBC, TONY, CBC, CEA #### [address] MCV (RBC) [Entitic vol] 92.8 fL Normal 83.5-101 F [facility] Comment on above: Performed By: #### C MP, FE and TIBC, TONY, CBC, CEA #### [address] Mean Corpuscular HGB Conc 33.3 g/dL Normal 32.5-35.6 [facility] Comment on above: Performed By: #### C MP, FE and TIBC, TONY, CBC, CEA #### [address] Monocytes (Bld) [#/Vol] 0.5 10*3/uL Normal 0.0-0.8 [facility] Comment on above: Performed By: #### C MP, FE and TIBC, TONY, CBC, CEA #### [address] Monocytes/100 WBC (Bld) 7.9 % Normal . F [facility] Comment on above: Performed By: #### C MP, FE and TIBC, TONY, CBC, CEA #### [address] Neutrophils (Bld) [#/Vol] 4.6 10*3/uL Normal 1.8-7.7 [facility] Comment on above: Performed By: #### C MP, FE and TIBC, TONY, CBC, CEA #### [address] Neutrophils/100 WBC (Bld) 65.9 % Normal . [facility] Comment on above: Performed By: #### C MP, FE and TIBC, TONY, CBC, CEA #### [address] NRBC% 0.1 /100{WBC} Normal 0-0.5 [facility] Comment on above: Performed By: #### C MP, FE and TIBC, TONY, CBC, CEA #### [facility] [address] Platelet mean volume (Bld) [Entitic vol] 7.6 fL Normal 6.6-10.1 [facility] Comment on above: Performed By: #### C MP, FE and TIBC, TONY, CBC, CEA #### [facility] [address] Platelets (Bld) [#/Vol] 206 10*3/uL Normal 150-450 [facility] Comment on above: Performed By: #### C MP, FE and TIBC, TONY, CBC, CEA #### [address] RBC (Bld) [#/Vol] 3.96 10*6/uL Normal 3.90-5.60 [facility] Comment on above: Performed By: #### C MP, FE and TIBC, TONY, CBC, CEA #### [address] WBC (Bld) [#/Vol] 7.0 10*3/uL Normal 4.1-10.5 [facility] Comment on above: Performed By: #### C MP, FE and TIBC, TONY, CBC, CEA #### [address] Comprehensive Metabolic Pane arelis 08-30-2023 Albumin [Mass/Vol] 4.4 g/dL Normal 3.5-5.7 [facility] Comment on above: Performed By: #### C MP, FE and TIBC, TONY, CBC, CEA #### [address] Albumin/Globulin [Mass ratio] 1.8 {ratio} Normal [facility] Comment on above: Performed By: #### C MP, FE and TIBC, TONY, CBC, CEA #### [address] ALP [Catalytic activity/Vol] 114 U/L High 34-104 [facility] Comment on above: Performed By: #### C MP, FE and TIBC, TONY, CBC, CEA #### [address] ALT [Catalytic activity/Vol] 20 U/L Normal 7-52 [facility] Comment on above: Performed By: #### C MP, FE and TIBC, TONY, CBC, CEA #### [address] Anion gap [Moles/Vol] 10.0 mmol/L Normal 6.0-15.0 [facility] Comment on above: Performed By: #### C MP, FE and TIBC, TONY, CBC, CEA #### [address] AST [Catalytic activity/Vol] 23 U/L Normal 13-39 [facility] Comment on above: Performed By: #### C MP, FE and TIBC, TONY, CBC, CEA #### [address] Bilirubin [Mass/Vol] 0.8 mg/dL Normal 0.3-1.0 [facility] Comment on above: Performed By: #### C MP, FE and TIBC, TONY, CBC, CEA #### [address] Calcium [Mass/Vol] 9.7 mg/dL Normal 8.6-10.3 [facility] Comment on above: Performed By: #### C MP, FE and TIBC, TONY, CBC, CEA #### [address] Chloride [Moles/Vol] 102 mmol/L Normal 98-107 [facility] Comment on above: Performed By: #### C MP, FE and TIBC, TONY, CBC, CEA #### [address] CO2 [Moles/Vol] 35.5 mmol/L High 21.0-31.0 [facility] Comment on above: Performed By: #### C MP, FE and TIBC, TONY, CBC, CEA #### [address] [place] [address] [place] Creatinine [Mass/Vol] 2.29 mg/dL High 0.70-1.30 [facility] Comment on above: Performed By: #### C MP, FE and TIBC, TONY, CBC, CEA #### [facility] [address] Creatinine Clr Calc Pharmacy 30.81 [facility] Comment on above: Performed By: #### C MP, FE and TIBC, TONY, CBC, CEA #### [facility] [address] GFR/1.73 sq M.predicted MDRD (S/P/Bld) [Vol rate/Area] 27.976 mL/min/{1.73_m2} [facility] Comment on above: Performed By: #### C MP, FE and TIBC, TONY, CBC, CEA #### [facility] [address] Globulin (S) [Mass/Vol] 2.5 g/dL Normal [facility] Comment on above: Performed By: #### C MP, FE and TIBC, TONY, CBC, CEA #### [facility] [address] Glucose [Mass/Vol] 111 mg/dL High 70-100 [facility] Comment on above: Result Comment: [place] Glucose Reference Range is dependent on time and content of last meal. Glucose of more than 200 mg/dL in a nonstressed, ambulatory subject supports the diagnosis of Diabetes Mellitus. ADA recommended reference range Performed By: #### C MP, FE and TIBC, TONY, CBC, CEA #### [facility] [address] Potassium [Moles/Vol] 4.5 mmol/L Normal 3.5-5.1 [facility] Comment on above: Performed By: #### C MP, FE and TIBC, TONY, CBC, CEA #### [facility] [address] Protein [Mass/Vol] 6.9 g/dL Normal 6.4-8.9 [facility] Comment on above: Performed By: #### C MP, FE and TIBC, TONY, CBC, CEA #### [facility] [address] Sodium [Moles/Vol] 143 mmol/L Normal 136-145 [facility] Comment on above: Performed By: #### C MP, FE and TIBC, TONY, CBC, CEA #### [facility] [address] Urea nitrogen [Mass/Vol] 51 mg/dL High 7-25 [facility] Comment on above: Performed By: #### C MP, FE and TIBC, TONY, CBC, CEA #### [facility] [address] Creatinine [Mass/volume] in Serum or PlasmaOrdered By: Leigha Talamantesrenée on 08-30-2023 Creatinine [Mass/Vol] 2.29 mg/dL 0.70-1.30 [facility] Eosinophils Auto (Bld) [#/Vo l]Ordered By: Leigha Talamantesrenée on 08-30-2023 Eosinophils (Bld) [#/Vol] 0.3 10*3/uL 0.0-0.45 [facility] Eosinophils/100 WBC Auto (Bl d)Ordered By: Leigha Talamantesrenée on 08-30-2023 Eosinophils/100 WBC (Bld) 3.8 % . [facility] Erythrocyte distribution wid th Auto (RBC) [Ratio]Ordered By: Leigha Talamantesrenée on 08-30-2023 Erythrocyte distribution width (RBC) [Ratio] 14.8 % 12.0-14.8 [facility] Ferritinon 08-30-2023 Ferritin [Mass/Vol] 239.3 ng/mL Normal 23.9-336.2 [facility] Comment on above: Result Comment: PERF ORMED BY: [place] [address] PATHOLOGIST STATION ATTENDANT TRU UMANZOR M.D. Performed By: #### C MP, FE and TIBC, TONY, CBC, CEA #### [facility] [address] [place] [address] [place] Ferritin [Mass/volume] in Se rum or PlasmaOrdered By: Leigha Omar on 08-30-2023 Ferritin [Mass/Vol] 239.3 ng/mL 23.9-336.2 [facility] Globulin Calc (S) [Mass/Vol] Ordered By: Leigha Omar on 08-30-2023 Globulin (S) [Mass/Vol] 2.5 g/dL F [facility] Glucose [Mass/volume] in Ser um or PlasmaOrdered By: Leigha Nelson on 08-30-2023 Glucose [Mass/Vol] 111 mg/dL 70-100 [facility] Comment on above: ADA recommended refe rence rangeRandom Glucose Reference Range is dependent on time and content of last meal. Glucose of more than 200 mg/dL in a nonstressed, ambulatory subject supports the diagnosis of Diabetes Mellitus. Hematocrit Auto (Bld) [Volum e fraction]Ordered By: Liegha Nelson on 08-30-2023 Hematocrit (Bld) [Volume fraction] 36.8 % 38.8-50.0 [facility] Hemoglobin [Mass/volume] in BloodOrdered By: Leigha Nelson on 08-30-2023 Hemoglobin (Bld) [Mass/Vol] 12.3 g/dL 13.0-17.0 [facility] Iron [Mass/volume] in Serum or PlasmaOrdered By: Leigha Nelson on 08-30-2023 Iron [Mass/Vol] 84 ug/dL 50-212 [facility] Iron and TIBC Profileon 08-16 % Iron Saturation 29.0 % Normal 20-50 [facility] Comment on above: Performed By: #### C MP, FE and TIBC, TONY, CBC, CEA #### [facility] [address] Iron [Mass/Vol] 84 ug/dL Normal 50-212 [facility] Comment on above: Performed By: #### C MP, FE and TIBC, TONY, CBC, CEA #### [facility] [address] Total Iron Binding Capacity 290 ug/dL Normal 255-450 [facility] Comment on above: Performed By: #### C MP, FE and TIBC, TONY, CBC, CEA #### [facility] [address] [place] [address] [place] Transferrin [Mass/Vol] 207 mg/dL Normal 203-362 [facility] Comment on above: Performed By: #### C MP, FE and TIBC, TONY, CBC, CEA #### [facility] [address] [place] [address] [place] Iron binding capacity [Mass/ volume] in Serum or PlasmaOrdered By: Leigha Nelson on 08-30-2023 Iron binding capacity [Mass/Vol] 290 ug/dL 255-450 [facility] Iron saturation [Mass Fracti on] in Serum or PlasmaOrdered By: Leigha Nelson on 08-30-2023 Iron saturation [Mass fraction] 29.0 % 20-50 [facility] Leukocytes [#/volume] correc bonnie for nucleated erythrocytes in Blood by Automated counOrdered By: Leigha Nelson on 08-30-2023 WBC corrected for nucl RBC Auto (Bld) [#/Vol] 7.0 10*3/uL 4.1-10.5 [facility] Lymphocytes Auto (Bld) [#/Vo l]Ordered By: Leigha Nelson on 08-30-2023 Lymphocytes (Bld) [#/Vol] 1.5 10*3/uL 1.00-4.8 [facility] Lymphocytes/100 WBC Auto (Bl d)Ordered By: Leigha Nelson on 08-30-2023 Lymphocytes/100 WBC (Bld) 21.9 % . [facility] MCH Auto (RBC) [Entitic mass ]Ordered By: Leigha Nelson on 08-30-2023 MCH (RBC) [Entitic mass] 30.9 pg 27.5-35.2 [facility] MCHC Auto (RBC) [Mass/Vol]Or dered By: Leigha Nelson on 08-30-2023 MCHC (RBC) [Mass/Vol] 33.3 g/dL 32.5-35.6 [facility] MCV Auto (RBC) [Entitic vol] Ordered By: Leigha Nelson on 08-30-2023 MCV (RBC) [Entitic vol] 92.8 fL 83.5-101 [facility] Monocytes Auto (Bld) [#/Vol] Ordered By: Leigha Nelson on 08-30-2023 Monocytes (Bld) [#/Vol] 0.5 10*3/uL 0.0-0.8 [facility] Monocytes/100 WBC Auto (Bld) Ordered By: Leigha Nelson on 08-30-2023 Monocytes/100 WBC (Bld) 7.9 % . [facility] Neutrophils Auto (Bld) [#/Vo l]Ordered By: Leigha Nelson on 08-30-2023 Neutrophils (Bld) [#/Vol] 4.6 10*3/uL 1.8-7.7 [facility] Neutrophils/100 WBC Auto (Bl d)Ordered By: Leigha Nelson on 08-30-2023 Neutrophils/100 WBC (Bld) 65.9 % . [facility] No Panel InformationOrdered By: Leigha Nelson on 08-30-2023 Estimated GFR (CKD-EPI) 27.976 mL/Min [facility] Creatinine Clearance (Chem 30.81 [facility] Nucleated erythrocytes [Pres ence] in Blood by Automated countOrdered By: Leigha Nelson on 08-30-2023 Nucleated RBC Auto Ql (Bld) 0.1 /100{WBC} 0-0.5 [facility] Platelet mean volume Auto (B ld) [Entitic vol]Ordered By: Leigha Nelson on 08-30-2023 Platelet mean volume (Bld) [Entitic vol] 7.6 fL 6.6-10.1 [facility] Platelets Auto (Bld) [#/Vol] Ordered By: Leigha Nelson on 08-30-2023 Platelets (Bld) [#/Vol] 206 10*3/uL 150-450 [facility] Potassium [Moles/volume] in Serum or PlasmaOrdered By: Leigha Nelson on 08-30-2023 Potassium [Moles/Vol] 4.5 mmol/L 3.5-5.1 [facility] Protein [Mass/volume] in Ser um or PlasmaOrdered By: Leigha Nelson on 08-30-2023 Protein [Mass/Vol] 6.9 g/dL 6.4-8.9 [facility] RBC Auto (Bld) [#/Vol]Ordere d By: Leigha Omar on 08-30-2023 RBC (Bld) [#/Vol] 3.96 10*6/uL 3.90-5.60 [facility] Serum or plasma albumin/glob ulin mass ratioOrdered By: Leigha Omar on 08-30-2023 Albumin/Globulin [Mass ratio] 1.8 {ratio} [facility] Serum or plasma anion gap de terminationOrdered By: Leigha Omar on 08-30-2023 Anion gap [Moles/Vol] 10.0 mmol/L 6.0-15.0 [facility] Serum or plasma carcinoembry onic antigen measurement (mass/volume)Ordered By: Leigha Omar on 08-30-2023 Carcinoembryonic Ag [Mass/Vol] 2.1 ng/mL 0.0-3.0 [facility] Sodium [Moles/volume] in Ser um or PlasmaOrdered By: Leigha Omar on 08-30-2023 Sodium [Moles/Vol] 143 mmol/L 136-145 [facility] Transferrin [Mass/volume] in Serum or PlasmaOrdered By: Leigha Omar on 08-30-2023 Transferrin [Mass/Vol] 207 mg/dL 203-362 [facility] Urea nitrogen [Mass/volume] in Serum or PlasmaOrdered By: Leigha Omar on 08-30-2023 Urea nitrogen [Mass/Vol] 51 mg/dL 7-25 [facility] WBC Auto (Bld) [#/Vol]Ordere d By: Leigha Omar on 08-30-2023 WBC (Bld) [#/Vol] 7.0 10*3/uL 4.1-10.5 [facility] Follow-Upon 06-30-2023 Follow-Up [id number] Shanti Ren 1940 M Date Provider Department Center 06/30/2023 [id number] SONG [facility] Family History Problem Relation Age of Onset Diabetes Mother Heart disease Father Glaucoma Brother Diabetes Maternal Grandmother Clotting disorder Other Family Status - Relation Status Age at Mother Father Brother Maternal Grandmother Other Level of Service:75532 ND OFFICE/OUTPATIENT ESTABLISHED MOD MDM 30-39 MIN Normal [facility] Office Visiton 06-23-2023 Follow-up visit [id number] RenShanti guzman 1940 M Date Provider Department Center 06/23/2023 MALI MAYO DARWIN [facility] Family History Problem Relation Age of Onset Diabetes Mother Heart disease Father Glaucoma Brother Diabetes Maternal Grandmother Clotting disorder Other Family Status - Relation Status Age at Mother Father Brother Maternal Grandmother Other Level of Service:11562 ND OFFICE/OUTPATIENT ESTABLISHED LOW MDM 20-29 MIN Normal [facility] Documentationon 06-14-2023 Documentation [id number] RenShanti guzman 1940 M Date Provider Department Center 06/14/2023 ROXANNE CANCHOLA [facility] Family History Problem Relation Age of Onset Diabetes Mother Heart disease Father Glaucoma Brother Diabetes Maternal Grandmother Clotting disorder Other Family Status - Relation Status Age at Mother Father Brother Maternal Grandmother Other Normal [facility] BASIC METABOLIC PANELon 05-17 Anion gap [Moles/Vol] 14 mmol/L Normal 7-20 [facility] Comment on above: Performed By: #### L AB15 ####[facility] ([facility])[address] [facility] [place] [address] Calcium [Mass/Vol] 9.3 mg/dL Normal 8.6-10.3 [facility] Comment on above: Performed By: #### L AB15 ####[facility] ([facility])[address] [place] [address] Chloride [Moles/Vol] 103 mmol/L Normal 98-107 [facility] Comment on above: Performed By: #### L AB15 ####[facility] ([facility])[address] [place] [address] CO2 [Moles/Vol] 29 mmol/L Normal 21-31 [facility] Comment on above: Performed By: #### L AB15 ####[facility] ([facility])[address] [place] [address] Creatinine [Mass/Vol] 2.51 mg/dL High 0.70-1.30 [facility] Comment on above: Performed By: #### L AB15 ####[facility] ([facility])[address] [place] [address] GLOMERULAR FILTRATION RATE ML/MIN/1.73 SQ M.PREDICTED 25.1 mL/min/1.73m*2 Low >60.0 [facility] Comment on above: Result Comment: [facility]???s estimated glomerular filtration rate (eGFR) will no longer include consideration of race in its calculation. The National Kidney Foundation???s eGFR Task Force developed new recommendations for the estimation of the glomerular filtration rate in the [place] They recommend immediate implementation of the new equation refit without the race variable in all laboratories because the calculation does not include race. In addition to not including race in the calculation and reporting, it included diversity in its development, and has acceptable performance characteristics and potential consequences that do not disproportionately affect any one group of individuals. Performed By: #### L AB15 ####[facility] ([facility])[address] [place] [address] Glucose [Mass/Vol] 135 mg/dL High 70-100 [facility] Comment on above: Performed By: #### L AB15 ####[facility] ([facility])[address] [place] [address] Potassium [Moles/Vol] 4.0 mmol/L Normal 3.5-5.1 [facility] Comment on above: Performed By: #### L AB15 ####[facility] ([facility])[address] [place] [address] Sodium [Moles/Vol] 142 mmol/L Normal 136-145 [facility] Comment on above: Performed By: #### L AB15 ####[facility] ([facility])[address] [place] [address] Urea nitrogen [Mass/Vol] 55 mg/dL High 7-25 [facility] Comment on above: Performed By: #### L AB15 ####[facility] ([facility])[address] [place] [address] UREA NITROGEN/CREATININE (MASS RATIO) IN SER/PLAS 21.9 Normal [facility] Comment on above: Performed By: #### L AB15 ####[facility] ([facility])[address] [place] [address] HPon 06-12-2023 [facility] Electrophysiology Consult Note Reason for visit: Afib and dilated CMP. Pt previously was taken off AC as per his request and was monitored with device check. When this picked up AF, he was started on DOAC. He has lowered dose to 2.5mg bid He has 100% RV pacing and has NYHA Class III symptoms. EKG: V pacing. Prior HPI: Nas Ren is a 82 y.o. year old with past medical history of h/o of Aflutter s/p ablation and CHB s/p PPM has been known to have CMP. Patient had undergone atrial flutter ablation on 11/13/[address] Alejandre. He had initially presented in sinus rhythm and following ablation bidirectional block was noted as per the dictation. He was noted to have a prolonged HV interval of 110 ms recently concern of infrahisian disease. He was brought back to [facility] on 02/12/2020 due to what was discussed as a complete heart block and subsequently underwent a dual-chamber pacemaker with a Biotronik device by Dr. Alejandre. Echocardiogram that was performed on 02/10/2020 showed EF of 30 to 35%. A repeat one that was performed on 06/25/2020 shows EF of 40%. He is currently on amiodarone as well as Eliquis. Device check that was performed on 01/18/2021 reveals no evidence of atrial fibrillation but evidence of atrial pacing 81% of the time and 100% RV pacing. Trasnmisison today confirms no AF since implant. EKG performed on EKG on 02/09/2020 at 11:33 AM shows sinus rhythm with underlying right bundle branch block 08/13/2019 shows long RP tachycardia with ventricular rate of 106 05/04/2016 CVl CORONARY ANGIOGRAPHY: This is a right-dominant circulation. Left main: This arises from the left coronary cusp. It bifurcates into left anterior descending and circumflex vessels. Left main is angiographically free of disease. Left anterior descending: This has 20% to 30% mid segment tubular narrowing, but no obstructive lesions. Circumflex vessel: This has 30% mid segment stenosis, but no obstructive lesions. Right coronary artery: This arises from the right coronary cusp. It is a large and dominant vessel. It has minimal luminal irregularities but no obstructive lesions. LIMITED RIGHT FEMORAL ANGIOGRAPHY: This initially showed access to be in the right common femoral artery just above the femoral bifurcation. Repeat access was in the mid right common femoral artery. There were no obstructive lesions noted in the femoral artery or its proximal branches. SUMMARY OF THE FINDINGS: 1. Mild 2-vessel coronary artery disease with 30% mid circ and 20% to 30% mid LAD narrowings, but no obstructive lesions. 2. Mildly to moderately elevated filling pressures. 3. Mild pulmonary hypertension. 4. Preserved cardiac output and cardiac index. 5. Uncontrolled systemic hypertension Echo 02/10/2020 Left Ventricle: The left ventricle is mildly enlarged. EF range is estimated at 30 % -35 %. Left ventricular wall thickness is increased. No thrombus is identified in the left ventricle. Right Ventricle: The right ventricle is normal in size. Normal right ventricular systolic function. Unable to assess right sided pressures due to lack of measurable tricuspid regurgitation. Left Atrium: The left atrium appears normal in size. 11/25/2019 Echo Global left ventricular systolic function is moderately to severely reduced (Visually estimated EF 40%). Diffuse global hypokinesis. Apical Dyskinesis. Doppler studies suggest mildly elevated right sided pressures. Possible thrombus noted in the left ventricular apex would recommend follow up TTE with definity for further evaluation Compared to the previous study 11/06/19 the ejection fraction appears similar with suspicion for some degree of overestimation of ejection fraction on the prior 3D EF calculation 11/06/2019 ECHO Global left ventricular systolic function is at lower limits of normal. Normal right ventricular systolic function. The right ventricle is mildly enlarged. Calculated left ventricular ejection fraction is 50% Compared to the previous study of 08/14/19 the EF is significantly better (25-30% to 50%). . Review of Systems Constitutional: Negative for activity change and fatigue. Respiratory: Negative for chest tightness, shortness of breath and wheezing. Cardiovascular: Negative for chest pain, palpitations, orthopnea, leg swelling, syncope and PND. Neurological: Negative for dizziness, syncope, weakness and light-headedness. All other systems reviewed and are negative. PMH: History reviewed. No pertinent past medical history. PSH: Past Surgical History: Procedure Laterality Date CARDIAC CATHETERIZATION 05/16/2018 CARDIAC CATHETERIZATION 05/04/2016 CARDIAC CATHETERIZATION 05/03/2016 CARDIAC CATHETERIZATION 03/30/2016 CT GUIDED PERCUTANEOUS PERITONEAL OR RETROPERITONEAL FLUID COLLECTION DRAINAGE 05/27/2021 CT GUIDED PERCUTANEOUS PERITONEAL OR RETROPERITONEAL FLUID COLLECTION DRAINAGE BENDER CONVERSION INSERT / REPLACE (more content not included)... [facility] NURSNOTEon 06-12-2023 NURSNOTE RN educated pt on d/ c instructions. RN encouraged pt to voice any questions or concerns. Pt verbalizes no questions or concerns at this time. [facility] NURSNOTE Iodine nasal swabs and CHG wipes done per device prep protocol. [facility] Telemedicineon 04-25-2023 Telemedicine [id number] Shanti Ren 1940 M Date Provider Department Center 04/25/2023 [id number] WAHL [facility] [place] [facility] Family History Problem Relation Age of Onset Diabetes Mother Heart disease Father Glaucoma Brother Diabetes Maternal Grandmother Clotting disorder Other Family Status - Relation Status Age at Mother Father Brother Maternal Grandmother Other Level of Service:12468 ND PHYS/QHP TELEPHONE EVALUATION 21-30 MIN Reason for Visit and Comments: Telehealth Phone Visit [872] [facility] 2904-14-2023 29 Addended by: COMPA ARIAS on: 04/14/2023 09:56 AM Modules accepted: Orders [facility] 36on 04-14-2023 36 Per Venessa Sanchez, patient will increase Bumex to bid x 3 days. He will have BMP today and then repeat BMP next Monday. He will have telemed apt with Madhuri Isabel CNP at [facility] on 04/25/2023. Patient's made aware. 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 [facility] Orders Onlyon 04-14-2023 Orders Only [id number] Shanti Ren 1940 M Date Provider Department Center 04/14/2023 Trev-ROXANNE SANCHEZ DARWIN [facility] Family History Problem Relation Age of Onset Diabetes Mother Heart disease Father Glaucoma Brother Diabetes Maternal Grandmother Clotting disorder Other Family Status - Relation Status Age at Mother Father Brother Maternal Grandmother Other [facility] 36on 04-10-2023 36 Patient's sreekanth lemon stating he's c/o LE edema. She said no weight gain but does seem a little more SOB. He did not have these symptoms when he saw Dr. Degroot on 04/04 she said. He takes 1mg of bumex daily. Last kidney function was in December 2022, and he sees nephrology again in May. Any suggestions? Thanks! [facility] Telephoneon 04-10-2023 Telephone [id number] Shanti Ren 1940 M Date Provider Department Center 04/10/2023 MADDI FERNÁNDEZ DARWIN [facility] Family History Problem Relation Age of Onset Diabetes Mother Heart disease Father Glaucoma Brother Diabetes Maternal Grandmother Clotting disorder Other Family Status - Relation Status Age at Mother Father Brother Maternal Grandmother Other [facility] Office Visiton 04-04-2023 Follow-up visit [id number] Shanti Ren 1940 M Date Provider Department Center 04/04/2023 MARIUSZ LOPEZ DARWIN [facility] Family History Problem Relation Age of Onset Diabetes Mother Heart disease Father Glaucoma Brother Diabetes Maternal Grandmother Clotting disorder Other Family Status - Relation Status Age at Mother Father Brother Maternal Grandmother Other Level of Service:87448 ND OFFICE/OUTPATIENT ESTABLISHED HIGH MDM 40-54 MIN Reason for Visit and Comments: Follow-up [[id number]] [facility] 36on 03-06-2023 36 done [facility] 36on 02-28-2023 36 Ask him to stop Aspirin. They can discuss further during upcoming appointment with Dr. Degroot. Thanks. [facility] CT abdomen pelvis wo con 0 02-28-2023 CT abdomen pelvis wo con [facility] [place] [address] [place] [address] CT Scan Report Signed Patient: Nas Ren MR#: [id number] 24 : 1940 Acct:[id number] Age/Sex: 82 / M ADM Date: 02/28/23 Loc: Room: Type: [facility] RCR Attending Dr: Chivo Keller II DO Copies to: Chivo Keller II, DO Ordering Provider: Chivo Keller II, DO Date of Service: 02/28/23 CT/CT abdomen pelvis wo con: surveilance ([id number]) CT/CT chest wo con: surveilance CT CHEST, ABDOMEN AND PELVIS WITHOUT INTRAVENOUS CONTRAST: CLINICAL HISTORY: Follow-up colon cancer. COMPARISON: CT chest, abdomen and pelvis 08/31/2022 TECHNIQUE: TECHNIQUE: Spiral images were obtained through the chest, abdomen and pelvis without the administration of IV contrast. This CT exam was performed using one or more following dose reduction techniques: Automated exposure control, adjustment of the mA and/or kV according to patient size, or use of iterative reconstruction technique. FINDINGS: CT chest: Mediastinum:Pacemaker device is in place. Cardiomegaly. No pleural effusion. Thoracic aorta is normal in caliber. Pulmonary trunk appears nondilated. Calcified mediastinal and left hilar lymph nodes. The esophagus is grossly unremarkable. Lungs:Emphysematous changes. Mild bibasilar atelectasis/scarring. No consolidation, pneumothorax or pleural effusion. 1 cm groundglass nodule involving the right upper lobe series 5 image 70, unchanged. Calcified granulomas. Soft tissues/Bones: Visualized soft tissues demonstrate no acute findings. Osseous structures demonstrate degenerative change. CT abdomen and pelvis: Organs:Suboptimal evaluation due to lack of IV contrast. Liver gallbladder spleen pancreas and left adrenal gland all appear grossly unremarkable other than a punctate annual mammography of the spleen. Small right adrenal adenoma. Kidneys demonstrate no evidence of stone or hydronephrosis. Abdominal aorta appears normal in caliber.[ GI: Stomach is grossly unremarkable. Small bowel appears nondilated. No acute colonic abnormality. Right hemicolectomy.[ Pelvis:[Urinary bladder is grossly unremarkable. Prostatomegaly.] Peritoneum/Retroperit oneum:No free air, free fluid or lymphadenopathy.[ Abd wall/Bones:Abdominal wall demonstrates no acute findings. Osseous structures demonstrate degenerative change. No aggressive bony lesions.[ CT/CT chest wo con IMPRESSION: 1. No significant change in chest findings compared to the prior study. 2. No acute process seen within the abdomen or pelvis. No evidence of metastatic disease or tumor recurrence. Impression dictated by: Sotero Scott Jr., D.O.02/28/2023 2:57 PM Dictation Location: [place] [address] Transcribed By: [facility] 02/28/23 1457 Dictated By: Sotero Scott Jr, DO 02/28/23 1447 Signed By: 02/28/23 1457 Normal [facility] Complete Blood Count Auto Di ffon 02-28-2023 Basophils (Bld) [#/Vol] 0.1 10*3/uL Normal 0.0-0.2 [facility] Comment on above: Result Comment: PERF ORMED BY: [place] [address] PATHOLOGIST STATION ATTENDANT TRU UMANZOR M.D. Performed By: #### C BC, CMP, FE and TIBC, TONY, CEA #### [address] Basophils/100 WBC (Bld) 0.6 % Normal . [facility] Comment on above: Performed By: #### C BC, CMP, FE and TIBC, TONY, CEA #### [facility] [address] Eosinophils (Bld) [#/Vol] 0.3 10*3/uL Normal 0.0-0.45 [facility] Comment on above: Performed By: #### C BC, CMP, FE and TIBC, TONY, CEA #### [facility] [address] Eosinophils/100 WBC (Bld) 3.6 % Normal . [facility] Comment on above: Performed By: #### C BC, CMP, FE and TIBC, OTNY, CEA #### [facility] [address] Erythrocyte distribution width (RBC) [Ratio] 14.7 % Normal 12.0-14.8 [facility] Comment on above: Performed By: #### C BC, CMP, FE and TIBC, TONY, CEA #### [address] Hematocrit (Bld) [Volume fraction] 38.1 % Low 38.8-50.0 [facility] Comment on above: Performed By: #### C BC, CMP, FE and TIBC, TONY, CEA #### [address] Hemoglobin (Bld) [Mass/Vol] 12.5 g/dL Low 13.0-17.0 [facility] Comment on above: Performed By: #### C BC, CMP, FE and TIBC, TONY, CEA #### [address] Lymphocytes (Bld) [#/Vol] 1.7 10*3/uL Normal 1.00-4.8 [facility] Comment on above: Performed By: #### C BC, CMP, FE and TIBC, TONY, CEA #### [address] Lymphocytes/100 WBC (Bld) 17.9 % Normal . [facility] Comment on above: Performed By: #### C BC, CMP, FE and TIBC, TONY, CEA #### [address] MCH (RBC) [Entitic mass] 30.7 pg Normal 27.5-35.2 [facility] Comment on above: Performed By: #### C BC, CMP, FE and TIBC, TONY, CEA #### [address] MCV (RBC) [Entitic vol] 93.2 fL Normal 83.5-101 F [facility] Comment on above: Performed By: #### C BC, CMP, FE and TIBC, TONY, CEA #### [address] Mean Corpuscular HGB Conc 33.0 g/dL Normal 32.5-35.6 [facility] Comment on above: Performed By: #### C BC, CMP, FE and TIBC, TONY, CEA #### [facility] [address] [place] [address] [place] Monocytes (Bld) [#/Vol] 0.9 10*3/uL High 0.0-0.8 [facility] Comment on above: Performed By: #### C BC, CMP, FE and TIBC, TONY, CEA #### [facility] [address] [place] [address] [place] Monocytes/100 WBC (Bld) 9.6 % Normal . F [facility] Comment on above: Performed By: #### C BC, CMP, FE and TIBC, TONY, CEA #### [facility] [address] [place] [address] [place] Neutrophils (Bld) [#/Vol] 6.6 10*3/uL Normal 1.8-7.7 [facility] Comment on above: Performed By: #### C BC, CMP, FE and TIBC, TONY, CEA #### [facility] [address] [place] [address] [place] Neutrophils/100 WBC (Bld) 68.3 % Normal . [facility] Comment on above: Performed By: #### C BC, CMP, FE and TIBC, TONY, CEA #### [facility] [address] [place] [address] [place] NRBC% 0.3 /100{WBC} Normal 0-0.5 [facility] Comment on above: Performed By: #### C BC, CMP, FE and TIBC, TONY, CEA #### [facility] [address] [place] [address] [place] Platelet mean volume (Bld) [Entitic vol] 7.6 fL Normal 6.6-10.1 [facility] Comment on above: Performed By: #### C BC, CMP, FE and TIBC, TONY, CEA #### [facility] [address] [place] [address] [place] Platelets (Bld) [#/Vol] 215 10*3/uL Normal 150-450 [facility] Comment on above: Performed By: #### C BC, CMP, FE and TIBC, TONY, CEA #### [address] RBC (Bld) [#/Vol] 4.08 10*6/uL Normal 3.90-5.60 [facility] Comment on above: Performed By: #### C BC, CMP, FE and TIBC, TONY, CEA #### [address] WBC (Bld) [#/Vol] 9.6 10*3/uL Normal 4.1-10.5 [facility] Comment on above: Performed By: #### C BC, CMP, FE and TIBC, TONY, CEA #### [address] Comprehensive Metabolic Pane arelis 02-28-2023 Albumin [Mass/Vol] 4.1 g/dL Normal 3.5-5.7 [facility] Comment on above: Performed By: #### C BC, CMP, FE and TIBC, TONY, CEA #### [address] Albumin/Globulin [Mass ratio] 1.7 {ratio} Normal [facility] Comment on above: Performed By: #### C BC, CMP, FE and TIBC, TONY, CEA #### [address] ALP [Catalytic activity/Vol] 118 U/L High 34-104 [facility] Comment on above: Performed By: #### C BC, CMP, FE and TIBC, TONY, CEA #### [address] ALT [Catalytic activity/Vol] 31 U/L Normal 7-52 [facility] Comment on above: Performed By: #### C BC, CMP, FE and TIBC, TONY, CEA #### [address] Anion gap [Moles/Vol] 13.3 mmol/L Normal 6.0-15.0 [facility] Comment on above: Performed By: #### C BC, CMP, FE and TIBC, TONY, CEA #### [facility] [address] AST [Catalytic activity/Vol] 23 U/L Normal 13-39 [facility] Comment on above: Performed By: #### C BC, CMP, FE and TIBC, TONY, CEA #### [facility] [address] Bilirubin [Mass/Vol] 0.7 mg/dL Normal 0.3-1.0 [facility] Comment on above: Performed By: #### C BC, CMP, FE and TIBC, TONY, CEA #### [facility] [address] Calcium [Mass/Vol] 8.8 mg/dL Normal 8.6-10.3 [facility] Comment on above: Performed By: #### C BC, CMP, FE and TIBC, TONY, CEA #### [address] Chloride [Moles/Vol] 104 mmol/L Normal 98-107 [facility] Comment on above: Performed By: #### C BC, CMP, FE and TIBC, TONY, CEA #### [address] CO2 [Moles/Vol] 29.0 mmol/L Normal 21.0-31.0 [facility] Comment on above: Performed By: #### C BC, CMP, FE and TIBC, TONY, CEA #### [facility] [address] Creatinine [Mass/Vol] 2.25 mg/dL High 0.70-1.30 [facility] Comment on above: Performed By: #### C BC, CMP, FE and TIBC, TONY, CEA #### [facility] [address] Creatinine Clr Calc Pharmacy 31.39 Normal [facility] Comment on above: Performed By: #### C BC, CMP, FE and TIBC, TONY, CEA #### [facility] [address] GFR/1.73 sq M.predicted MDRD (S/P/Bld) [Vol rate/Area] 28.753 mL/min/{1.73_m2} Normal [facility] Comment on above: Performed By: #### C BC, CMP, FE and TIBC, TONY, CEA #### [facility] [address] Globulin (S) [Mass/Vol] 2.4 g/dL Normal [facility] Comment on above: Performed By: #### C BC, CMP, FE and TIBC, TONY, CEA #### [address] Glucose [Mass/Vol] 114 mg/dL High 70-100 [facility] Comment on above: Result Comment: [facility] Glucose Reference Range is dependent on time and content of last meal. Glucose of more than 200 mg/dL in a nonstressed, ambulatory subject supports the diagnosis of Diabetes Mellitus. ADA recommended reference range Performed By: #### C BC, CMP, FE and TIBC, TONY, CEA #### [address] Potassium [Moles/Vol] 4.3 mmol/L Normal 3.5-5.1 [facility] Comment on above: Performed By: #### C BC, CMP, FE and TIBC, TONY, CEA #### [address] Protein [Mass/Vol] 6.5 g/dL Normal 6.4-8.9 [facility] Comment on above: Performed By: #### C BC, CMP, FE and TIBC, TONY, CEA #### [address] Sodium [Moles/Vol] 142 mmol/L Normal 136-145 [facility] Comment on above: Performed By: #### C BC, CMP, FE and TIBC, TONY, CEA #### [address] [place] [address] [facility] Urea nitrogen [Mass/Vol] 45 mg/dL High 7-25 [facility] [facility] Comment on above: Performed By: #### C BC, CMP, FE and TIBC, TONY, CEA #### [facility] [address] [place] [address] [facility] ECHOCARDIO M/2D COMPLETEon 0 02-28-2023 ECHOCARDIO M/2D COMPLETE Patient: NAS REN Exam Date: 02/28/2023 : 1940 Gender:M Ordering : 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 DESCRIPTION: COMPLETE ECHOCARDIOGRAM Real-time transthoracic echocardiography with 2D, M-mode, spectral and color flow Doppler performed. QUALITY: Technical quality was good. LEFT VENTRICLE: Severe dilatation. Mild concentric left ventricular hypertrophy. Severely reduced systolic function. Abnormal septal motion is likely related to ventricular pacing. LV EF: Severely reduced left ventricular ejection fraction, (25%). DIASTOLIC: ATRIAL SEPTUM: Visually appears intact. LEFT ATRIUM: Moderate dilatation. RIGHT ATRIUM: Moderate dilatation. RIGHT VENTRICLE: Normal chamber size. Mildly reduced systolic function. Pacer wire present. TRICUSPID VALVE: Normal mobility and thickness. No stenosis with mild regurgitation. Doppler studies reveal severely (>60) elevated right sided pressures. RVSP 61 mmHg MITRAL VALVE: Normal mobility and thickness. No evidence of mitral valve stenosis. There is no mitral annular calcification. Mild to moderate mitral regurgitation. AORTIC VALVE: Normal trileaflet appearance. Mildly calcified aortic valve. Normal leaflet mobility. No evidence of aortic valve stenosis. No aortic regurgitation. AORTIC ROOT: Normal diameter and appearance. PULMONIC VALVE: Normal thickness and mobility. No stenosis. Trivial regurgitation. PERICARDIUM: No evidence of pericardial effusion. IVC: Dilated IVC (2.6 cm) with no collapse. PLEURA: CONCLUSION: 1. Left ventricle is severely dilated and exhibits severely reduced systolic function with global hypokinesis. LVEF is 25%. 2. The right ventricle is normal in size with mildly reduced systolic function. 3. Moderate biatrial dilatation. 4. Mild to moderate mitral regurgitation. 5. Mild tricuspid regurgitation. 6. Severely elevated right-sided pressures. RVSP 61 mmHg. Adult Echocardiography Procedure Report Left Ventricle LVEDD (3.7 - 5.6 cm): 6.99 cm LVESD (2.2 - 4.0 cm): 5.49 cm LVIVS thickness (0.6 - 1.2 cm): 1.11 cm LVPW thickness (0.5 - 1.0 cm): 1.16 cm e': 0.07 m/s E - e': 14.13 LVOT Max Gradient: 2.84 mm[Hg] Peak Velocity (LVOT): 0.84 m/s LVOT Diameter 2.18 cm Left Ventricular Ejection Fraction: 25 % Left Atrium LA Volume Index (2D A2C): 74.89 ml, 74.89 ml Left Atrium Systolic Dimension: 4.75 cm Mitral Valve MV E to A Ratio: 2.29, 2.01 Mitral Valve A-Wave Peak Velocity: 0.42 m/s, 0.48 m/s Mitral Valve E-Wave Peak Velocity: 0.95 m/s, 0.97 m/s Right Ventricle Aorta AO Root Diam: 3.38 cm Ascending Ao Diam: 2.94 cm Aortic Valve AoV Area (Peak Ezequiel): 1.88 cm2, 1.88 cm2 Peak Velocity(Antegrade Flow): 1.67 m/s Peak Gradient(Antegrade Flow): 11.18 mm[Hg] Mean Velocity(Antegrade Flow): 1.19 m/s Mean Gradient(Antegrade Flow): 6.52 mm[Hg] Velocity Time Integral: 39.74 cm Tricuspid Valve Peak Velocity (Regurgitant Flow): 3.04 m/s, 3.19 m/s, 3.38 m/s, 2.50 m/s, 3.06 m/s Peak Velocity: 0.47 m/s Pulmonic Valve Peak Velocity: 0.90 m/s Peak Gradient: 3.27 mm[Hg] Right Atrium Dictated by: Dawn Ortiz M.D. on 02/28/2023 at 20:18 Approved by: Dawn Ortiz M.D. on 02/28/2023 at 20:26 Normal [facility] Ferritinon 02-28-2023 Ferritin [Mass/Vol] 236.7 ng/mL Normal 23.9-336.2 [facility] Comment on above: Result Comment: PERF ORMED BY: [place] [address] PATHOLOGIST STATION ATTENDANT TRU UMANZOR M.D. Performed By: #### C MP, FE and TIBC, TONY, CBC, CEA #### [address] Iron and TIBC Profileon 02-13 % Iron Saturation 19.9 % Low 20-50 [facility] Comment on above: Performed By: #### C BC, CMP, FE and TIBC, TONY, CEA #### [address] Iron [Mass/Vol] 56 ug/dL Normal 50-212 [facility] Comment on above: Performed By: #### C BC, CMP, FE and TIBC, TONY, CEA #### [address] Total Iron Binding Capacity 281 ug/dL Normal 255-450 [facility] Comment on above: Performed By: #### C BC, CMP, FE and TIBC, TONY, CEA #### [address] Transferrin [Mass/Vol] 201 mg/dL Low 203-362 [facility] Comment on above: Performed By: #### C BC, CMP, FE and TIBC, TONY, CEA #### [place] [address] [place] Ref[place] 02-22-2023 Refill [id number] RenShanti guzman thomas 1940 M Date Provider Department Center 02/22/2023 [facility] PUL[facility] Comprehensiv Family History Problem Relation Age of Onset Diabetes Mother Heart disease Father Glaucoma Brother Diabetes Maternal Grandmother Clotting disorder Other Family Status - Relation Status Age at Mother Father Brother Maternal Grandmother Other Reason for Visit and Comments: Med Refill [[id number]] Normal [facility] T3, TOTAL (TRIIODOTHYRONINE) on 02-16-2023 T3, TOTAL 83 ng/dL Normal 71-180 [facility] Comment on above: Performed By: #### F T4, PSASC #### [facility] [address] [place] [address] Dr. Benito Schwartz FREE T4on 02-15-2023 Free T4 [Mass/Vol] 1.03 ng/dL Normal 0.76-1.46 [facility] Comment on above: Performed By: #### F T4 #### [facility] [address] [place] [address] Dr. Benito Schwartz LIPID PROFILEon 02-15-2023 CHOL-HDL RATIO NORM SEE BELOW Normal [facility] Comment on above: Result Comment: 3.3 - 4.4 LOW RISK 4.4 - 7.1 AVERAGE RISK 7.1 - 11.0 MODERATE RISK >11.0 HIGH RISK Performed By: #### T SH, FT3, BMP #### [facility] [address] [place] [address] Dr. Benito Schwartz Cholesterol [Mass/Vol] 164 mg/dL Normal <=200 [facility] Comment on above: Performed By: #### T SH, FT3, BMP #### [facility] [address] [place] [address] Dr. Benito Schwartz Cholesterol in HDL [Mass/Vol] 41 mg/dL Normal 40-60 [facility] Comment on above: Performed By: #### T SH, FT3, BMP #### [facility] [address] [place] [address] Dr. Benito Schwartz Cholesterol in LDL [Mass/Vol] 104.2 mg/dL Normal [facility] Comment on above: Performed By: #### T SH, FT3, BMP #### [facility] [address] [place] [address] Dr. Benito Schwartz Cholesterol.total/Lissette sterol in HDL [Mass ratio] 4.0 {ratio} Normal [facility] Comment on above: Performed By: #### T SH, FT3, BMP #### [facility] [address] [place] [address] Dr. Benito Schwartz HDL NORMAL > or = 60 mg/dl - LO W CARDIOVASCULAR RISK <40 mg/dl - HIGH CARDIOVASCULAR RISK Normal [facility] Comment on above: Performed By: #### T SH, FT3, BMP #### [facility] [address] [address] [address] Benito Schwartz LDL CALC NORMAL SEE BELOW Normal [facility] Comment on above: Result Comment: <100 mg/dl OPTIMAL 100 - 129 mg/dl NEAR OR ABOVE OPTIMAL 130 - 159 mg/dl BORDERLINE HIGH 160 - 189 mg/dl HIGH >190 mg/dl VERY HIGH Performed By: #### T SH, FT3, BMP #### [facility] [address] [address] [address] Benito Schwartz Triglyceride [Mass/Vol] 94 mg/dL Normal <=150 [facility] Comment on above: Performed By: #### T SH, FT3, BMP #### [facility] [address] [address] [address] Benito Schwartz VLDL CALC 18.8 mg/dL Normal [facility] Comment on above: Performed By: #### T SH, FT3, BMP #### [facility] [address] [address] [address] Benito Schwartz TSHon 02-15-2023 TSH 22.732 uIU/mL Critically high 0.358-3.740 [facility] Comment on above: Performed By: #### F T4, PSASC #### [facility] [address] [address] [address] Benito Schwartz Office Visiton 02-13-2023 Follow-up visit [id number] Shanti Ren 1940 M Date Provider Department Center 02/13/2023 [id number] SONG [facility] Family History Problem Relation Age of Onset Diabetes Mother Heart disease Father Glaucoma Brother Diabetes Maternal Grandmother Clotting disorder Other Family Status - Relation Status Age at Mother Father Brother Maternal Grandmother Other Level of Service:98296 [place] OFFICE/OUTPATIENT ESTABLISHED MOD MDM 30-39 MIN Reason for Visit and Comments: Follow-up [[id number]] - 3 month follow up Normal [facility] PTH INTACTon 01-03-2023 PTH, Intact 46 pg/mL Normal 15-65 [facility] Comment on above: Performed By: #### U RTPCR #### [facility] [address] [place] [address] Dr. Benito Schwartz T3, TOTAL (TRIIODOTHYRONINE) on 01-03-2023 T3, TOTAL 77 ng/dL Normal 71-180 [facility] Comment on above: Performed By: #### T SH, FT3, BMP #### [facility] [address] [place] [address] Dr. Benito Schwartz CBC AUTO DIFFon 01-02-2023 BASO # 0.0 103/ul Normal 0.0-0.1 [facility] Comment on above: Performed By: #### C BC #### [facility] [address] [place] [address] Dr. Benito Schwartz Basophils/100 WBC (Bld) 0.4 % Normal 0.2-2.0 [facility] Comment on above: Performed By: #### C BC #### [facility] [address] [place] [address] Dr. Benito Schwartz EO # 0.4 103/ul Normal 0.0-0.7 [facility] Comment on above: Performed By: #### C BC #### [facility] [address] [place] [address] Dr. Benito Schwartz Eosinophils/100 WBC (Bld) 5.1 % Normal 0.9-7.0 [facility] Comment on above: Performed By: #### C BC #### [facility] [address] [place] [address] Dr. Benito Schwartz Erythrocyte distribution width (RBC) [Ratio] 13.2 % Normal 11.0-15.0 [facility] Comment on above: Performed By: #### C BC #### [facility] [address] [place] [address] Dr. Benito Schwartz Hematocrit (Bld) [Volume fraction] 37.4 % Critically low 42.0-54.0 [facility] Comment on above: Performed By: #### C BC #### [facility] [address] [address] [address] Benito Schwartz Hemoglobin (Bld) [Mass/Vol] 12.4 g/dL Critically low 14.0-18.0 [facility] Comment on above: Performed By: #### C BC #### [facility] [address] [address] [address] Benito Schwartz IG # 0.03 10e3/ul Normal 0.00-0.03 [facility] Comment on above: Performed By: #### C BC #### [facility] [address] [place] [address] Dr. Benito Schwartz IG % 0.4 % Normal 0.0-0.5 [facility] Comment on above: Performed By: #### C BC #### [facility] [address] [place] [address] Dr. Benito Schwartz LYMPH # 1.6 103/ul Normal 1.2-3.8 [facility] Comment on above: Performed By: #### C BC #### [facility] [address] [place] [address] Dr. Benito Schwartz Lymphocytes/100 WBC (Bld) 20.3 % Critically low 20.5-60.0 [facility] Comment on above: Performed By: #### C BC #### [facility] [address] [place] [address] Dr. Benito Schwartz MANUAL DIFF REQ NO Normal [facility] Comment on above: Performed By: #### C BC #### [facility] [address] [place] [address] Dr. Benito Schwartz MCH (RBC) [Entitic mass] 31.7 pg Normal 25.9-34.0 [facility] Comment on above: Performed By: #### C BC #### [facility] [address] [place] [address] Dr. Benito Schwartz MCHC (RBC) [Mass/Vol] 33.2 g/dL Normal 29.9-35.2 [facility] Comment on above: Performed By: #### C BC #### [facility] [address] [address] [address] Benito Schwartz MCV (RBC) [Entitic vol] 95.7 fL Critically high 80.0-94 .0 [facility] Comment on above: Performed By: #### C BC #### [facility] [address] [place] [address] Dr. Benito Schwartz MONO # 0.7 103/ul Normal 0.3-0.8 [facility] Comment on above: Performed By: #### C BC #### [facility] [address] [place] [address] Dr. Benito Schwartz Monocytes/100 WBC (Bld) 8.6 % Normal 1.7-12.0 [facility] Comment on above: Performed By: #### C BC #### [facility] [address] [place] [address] Dr. Benito Schwartz NEUT # 5.3 103/ul Normal 1.4-6.5 [facility] Comment on above: Performed By: #### C BC #### [facility] [address] [place] [address] Dr. Benito Schwartz Neutrophils/100 WBC (Bld) 65.2 % Normal 43.0-75.0 [facility] Comment on above: Performed By: #### C BC #### [facility] [address] [place] [address] Dr. Benito Schwartz Platelet mean volume (Bld) [Entitic vol] 9.0 fL Critically low 9.5-13.5 [facility] Comment on above: Performed By: #### C BC #### [facility] [address] [place] [address] Dr. Benito Schwartz PLT 209 103/ul Normal 150-450 [facility] Comment on above: Performed By: #### C BC #### [facility] [address] [place], [place] [address] Dr. Benito Schwartz RBC 3.91 106/ul Critically low 4.70-6.10 [facility] Comment on above: Performed By: #### C BC #### [facility] [address] [place] [address] Dr. Benito Schwartz WBC 8.1 103/ul Normal 4.0-11.0 [facility] Comment on above: Performed By: #### C BC #### [facility] [address] [place] [address] Dr. Benito Schwartz FREE T4on 01-02-2023 Free T4 [Mass/Vol] 0.87 ng/dL Normal 0.76-1.46 [facility] Comment on above: Performed By: #### F T4, PSASC #### [facility] [address] [place] [address] Dr. Benito Schwartz GLYCOHEMOGLOBIN A1Con 2022 ADA RECOMMENDATION SEE BELOW Normal [facility] Comment on above: Result Comment: ADA RECOMMENDED LIMIT 4.0 - 6.0 ADA THERAPEUTIC TARGET < 7.0 ACTION SUGGESTED > 7.0 Performed By: #### C BC #### [facility] [address] [place] [address] Dr. Benito Schwartz Glucose [Mass/Vol] 126 mg/dL Normal [facility] Comment on above: Performed By: #### C BC #### [facility] [address] [place] [address] Dr. Benito Schwartz HbA1c (Bld) [Mass fraction] 6.0 % Normal 4.5-6.2 [facility] Comment on above: Performed By: #### C BC #### [facility] [address] [place] [address] Dr. Benito Schwartz MAGNESIUMon 01-02-2023 Magnesium [Mass/Vol] 2.3 mg/dL Normal 1.8-2.4 [facility] Comment on above: Performed By: #### U RTPCR #### [facility] [address] [place] [address] Dr. Benito Schwartz PHOSPHORUSon 01-02-2023 Phosphate [Mass/Vol] 4.1 mg/dL Normal 2.6-4.7 [facility] Comment on above: Performed By: #### U RTPCR #### [facility] [address] [place] [address] Dr. Benito Schwartz PROF CHEM 8 (BAS METB)on Anion gap [Moles/Vol] 11.1 mmol/L Normal Th [facility] Comment on above: Performed By: #### U RTPCR #### [facility] [address] [address] [address] Benito Schwartz Calcium [Mass/Vol] 8.9 mg/dL Normal 8.5-10.1 [facility] Comment on above: Performed By: #### U RTPCR #### [facility] [address] [address] [address] Benito Schwartz Chloride [Moles/Vol] 100 mmol/L Normal 98-107 [facility] Comment on above: Performed By: #### U RTPCR #### [facility] [address] [place] [address] Dr. Benito Schwartz CO2 [Moles/Vol] 33.2 mmol/L Critically high 21.0-32.0 [facility] Comment on above: Performed By: #### U RTPCR #### [facility] [address] [place] [address] Dr. Benito Schwartz Creatinine [Mass/Vol] 2.31 mg/dL Critically high 0.70-1.30 [facility] Comment on above: Performed By: #### U RTPCR #### [facility] [address] [place] [address] Dr. Benito Schwartz EGFR-AF BAHAMIAN 33 mL/min/1.73m2 Critically low >=60 [facility] Comment on above: Performed By: #### U RTPCR #### [facility] [address] [place] [address] Dr. Benito Schwartz EGFR-NON AF BAHAMIAN 27 mL/min/1.73m2 Critically low >=60 [facility] Comment on above: Performed By: #### U RTPCR #### [facility] [address] [place] [address] Dr. Benito Schwartz Glucose [Mass/Vol] 112 mg/dL Critically high 74-106 [facility] Comment on above: Performed By: #### U RTPCR #### [facility] [address] [place] [address] Dr. Benito Schwartz Potassium [Moles/Vol] 4.3 mmol/L Normal 3.5-5.1 [facility] Comment on above: Performed By: #### U RTPCR #### [facility] [address] [place] [address] Dr. Benito Schwartz Sodium [Moles/Vol] 140 mmol/L Normal 136-145 [facility] Comment on above: Performed By: #### U RTPCR #### [facility] [address] [address] [address] Benito Schwartz Urea nitrogen [Mass/Vol] 51.0 mg/dL Critically high 7.0-18.0 [facility] Comment on above: Performed By: #### U RTPCR #### [facility] [address] [place] [address] Dr. Benito Schwartz Urea nitrogen/Creatinine [Mass ratio] 22.1 mg/mg Normal [facility] Comment on above: Performed By: #### U RTPCR #### [facility] [address] [place] [address] Dr. Benito Schwartz TSHon 01-02-2023 TSH 27.692 uIU/mL Critically high 0.358-3.740 [facility] Comment on above: Performed By: #### C BC #### [facility] [address] [place] [address] Dr. Benito Schwartz UA RANDOMon 01-02-2023 Bilirubin Ql (U) Negative Normal NEGATIVE [facility] Comment on above: Performed By: #### U RTPCR #### [facility] [address] [place] [address] Dr. Benito Schwartz Clarity (U) CLEAR Normal CLEAR [facility] Comment on above: Performed By: #### U RTPCR #### [facility] [address] [place] [address] Dr. Benito Schwartz Color (U) LT. YELLOW Normal YELLOW [facility] Comment on above: Performed By: #### U RTPCR #### [facility] [address] [place] [address] Dr. Benito Schwartz Glucose Ql (U) Negative Normal NEGATIVE [facility] Comment on above: Performed By: #### U RTPCR #### [facility] [address] [address] [address] Benito Schwartz Hemoglobin Ql (U) Negative Normal NEGATIVE [facility] Comment on above: Performed By: #### U RTPCR #### [facility] [address] [place] [address] Dr. Benito Schwartz Ketones Ql (U) Negative Normal NEGATIVE [facility] Comment on above: Performed By: #### U RTPCR #### [facility] [address] [place] [address] Dr. Benito Schwartz LEUKOCYTES Negative Normal NEGATIVE [facility] Comment on above: Performed By: #### U RTPCR #### [facility] [address] [place] [address] Dr. Benito Schwartz Nitrite Ql (U) Negative Normal NEGATIVE [facility] Comment on above: Performed By: #### U RTPCR #### [facility] [address] [place] [address] Dr. Benito Schwartz pH (U) 6.0 [pH] Normal 5-9 [facility] Comment on above: Performed By: #### U RTPCR #### [facility] [address] [place] [address] Dr. Benito Schwartz SPEC GRAVITY <=1.005 Abnormal 1.005-<=1.02 5 [facility] Comment on above: Performed By: #### U RTPCR #### [facility] [address] [place] [address] Dr. Benito Schwartz UA PROTEIN Negative Normal NEGATIVE/ TRACE [facility] Comment on above: Performed By: #### U RTPCR #### [facility] [address] [place] [address] Dr. Benito Schwartz Urobilinogen Qn (U) 0.2 {Jagruti'U}/dL Normal 0.2 - 1. 0 [facility] Comment on above: Performed By: #### U RTPCR #### [facility] [address] [place] [address] Dr. Benito Schwartz URINE T PROTEIN CREAT RATIOo n 01-02-2023 Protein (U) [Mass/Vol] 19.1 mg/dL Critically high <=12.0 [facility] Comment on above: Performed By: #### F T4, PSASC #### [facility] [address] [place] [address] Dr. Benito Schwartz UR PROT CREAT RAT 0.75 Normal [facility] Comment on above: Performed By: #### F T4, PSASC #### [facility] [address] [address] [address] Benito Schwartz URINE CREAT 25.63 mg/dL Normal 20.00-300.00 [facility] Comment on above: Performed By: #### F T4, PSASC #### [facility] [address] [place] [address] Dr. Benito Schwartz VITAMIN D 25 OHon 01-02-2023 VIT D 25-OH 86.8 ng/mL Normal [facility] Comment on above: Performed By: #### U RTPCR #### [facility] [address] [place] [address] Dr. Benito Schwartz VIT D RANGES SEE BELOW Normal [facility] Comment on above: Result Comment: <20 ng/mL Vit D deficient 20 - <30 ng/mL Vit D insufficient 30 - 100 ng/mL Vit D sufficient >100 ng/mL Potential Toxicity Performed By: #### U RTPCR #### [facility] [address] [place] [address] Dr. Benito Schwartz Follow-Upon 12-22-2022 Follow-Up [id number] Shanti Ren 1940 M Date Provider Department Center 12/22/2022 [facility] PULM Comprehensiv Family History Problem Relation Age of Onset Diabetes Mother Heart disease Father Glaucoma Brother Diabetes Maternal Grandmother Clotting disorder Other Family Status - Relation Status Age at Mother Father Brother Maternal Grandmother Other Level of Service:74099 [place] OFFICE/OUTPATIENT ESTABLISHED LOW MDM 20-29 MIN (GC) Reason for Visit and Comments: pulmonary edema [Other] - 6 month follow up Normal [facility] T3, TOTAL (TRIIODOTHYRONINE) on 11-17-2022 T3, TOTAL 82 ng/dL Normal 71-180 [facility] Comment on above: Performed By: #### V ITAD #### [facility] [address] [place] [address] Dr. Benito Schwartz FREE T4on 11-16-2022 Free T4 [Mass/Vol] 0.93 ng/dL Normal 0.76-1.46 [facility] Comment on above: Performed By: #### C BC #### [facility] [address] [place] [address] Dr. Benito Schwartz TSHon 11-16-2022 TSH 31.189 uIU/mL Critically high 0.358-3.740 [facility] Comment on above: Performed By: #### F T4, PSASC #### [facility] [address] [place] [address] Dr. Benito Schwartz T3, TOTAL (TRIIODOTHYRONINE) on 10-04-2022 T3, TOTAL 43 ng/dL Critically low 71-180 [facility] Comment on above: Performed By: #### F T4, PSASC #### [facility] [address] [place] [address] Dr. Benito Schwartz FREE T4on 10-03-2022 Free T4 [Mass/Vol] 0.35 ng/dL Critically low 0.76-1.46 [facility] Comment on above: Performed By: #### F T4, PSASC #### [facility] [address] [place] [address] Dr. Benito Schwartz TSHon 10-03-2022 TSH 121.174 uIU/mL Critically high 0.358-3.740 [facility] Comment on above: Performed By: #### F T4, PSASC #### [facility] [address] [place] [address] Dr. Benito Schwartz MAGNESIUMon 09-22-2022 Magnesium [Mass/Vol] 2.5 mg/dL Critically high 1.8-2.4 [facility] Comment on above: Performed By: #### F T4 #### [facility] [address] [place] [address] Dr. Benito Schwartz PROF CHEM 8 (BAS METB)on Anion gap [Moles/Vol] 7.3 mmol/L Normal [facility] Comment on above: Performed By: #### F T4 #### [facility] [address] [address] [address] Benito Schwartz Calcium [Mass/Vol] 8.8 mg/dL Normal 8.5-10.1 [facility] Comment on above: Performed By: #### F T4 #### [facility] [address] [address] [address] Benito Schwartz Chloride [Moles/Vol] 100 mmol/L Normal 98-107 [facility] Comment on above: Performed By: #### F T4 #### [facility] [address] [place] [address] Dr. Benito Schwartz CO2 [Moles/Vol] 33.7 mmol/L Critically high 21.0-32.0 [facility] Comment on above: Performed By: #### F T4 #### [facility] [address] [place] [address] Dr. Benito Schwartz Creatinine [Mass/Vol] 2.43 mg/dL Critically high 0.70-1.30 [facility] Comment on above: Performed By: #### F T4 #### [facility] [address] [place] [address] Dr. Benito Schwartz EGFR-AF BAHAMIAN 31 mL/min/1.73m2 Critically low >=60 [facility] Comment on above: Performed By: #### F T4 #### [facility] [address] [address] [address] Benito Schwartz EGFR-NON AF BAHAMIAN 26 mL/min/1.73m2 Critically low >=60 [facility] Comment on above: Performed By: #### F T4 #### [facility] [address] [address] [address] Benito Schwartz Glucose [Mass/Vol] 136 mg/dL Critically high 74-106 [facility] Comment on above: Performed By: #### F T4 #### [facility] [address] [address] [address] Benito Schwartz Potassium [Moles/Vol] 4.0 mmol/L Normal 3.5-5.1 [facility] Comment on above: Performed By: #### F T4 #### [facility] [address] [place] [address] Dr. Benito Schwartz Sodium [Moles/Vol] 137 mmol/L Normal 136-145 [facility] Comment on above: Performed By: #### F T4 #### [facility] [address] [address] [address] Benito Schwartz Urea nitrogen [Mass/Vol] 47.0 mg/dL Critically high 7.0-18.0 [facility] Comment on above: Performed By: #### F T4 #### [facility] [address] [place] [address] Dr. Benito Schwartz Urea nitrogen/Creatinine [Mass ratio] 19.3 mg/mg Normal [facility] Comment on above: Performed By: #### F T4 #### [facility] [address] [place] [address] Dr. Benito Schwartz PTH INTACTon 09-10-2022 PTH, Intact 36 pg/mL Normal 15-65 [facility] Comment on above: Performed By: #### F T4, PSASC #### [facility] [address] [place] [address] Dr. Benito Schwartz CBC AUTO DIFFon 09-09-2022 BASO # 0.0 103/ul Normal 0.0-0.1 [facility] Comment on above: Performed By: #### F T4, PSASC #### [facility] [address] [place] [address] Dr. Benito Schwartz Basophils/100 WBC (Bld) 0.5 % Normal 0.2-2.0 [facility] Comment on above: Performed By: #### F T4, PSASC #### [facility] [address] [place] [address] Dr. Benito Schwartz EO # 0.4 103/ul Normal 0.0-0.7 [facility] Comment on above: Performed By: #### F T4, PSASC #### [facility] [address] [place] [address] Dr. Benito Schwartz Eosinophils/100 WBC (Bld) 5.3 % Normal 0.9-7.0 [facility] Comment on above: Performed By: #### F T4, PSASC #### [facility] [address] [place] [address] Dr. Benito Schwartz Erythrocyte distribution width (RBC) [Ratio] 14.3 % Normal 11.0-15.0 [facility] Comment on above: Performed By: #### F T4, PSASC #### [facility] [address] [place] [address] Dr. Benito Schwartz Hematocrit (Bld) [Volume fraction] 36.9 % Critically low 42.0-54.0 [facility] Comment on above: Performed By: #### F T4, PSASC #### [facility] [address] [place] [address] Dr. Benito Schwartz Hemoglobin (Bld) [Mass/Vol] 12.4 g/dL Critically low 14.0-18.0 [facility] Comment on above: Performed By: #### F T4, PSASC #### [facility] [address] [place] [address] Dr. Benito Schwartz IG # 0.04 10e3/ul Critically high 0.00-0.03 [facility] Comment on above: Performed By: #### F T4, PSASC #### [facility] [address] [place] [address] Dr. Benito Schwartz IG % 0.5 % Normal 0.0-0.5 [facility] Comment on above: Performed By: #### F T4, PSASC #### [facility] [address] [place] [address] Dr. Benito Schwartz LYMPH # 1.6 103/ul Normal 1.2-3.8 [facility] Comment on above: Performed By: #### F T4, PSASC #### [facility] [address] [place] [address] Dr. Benito Schwartz Lymphocytes/100 WBC (Bld) 22.2 % Normal 20.5-60.0 [facility] Comment on above: Performed By: #### F T4, PSASC #### [facility] [address] [place] [address] Dr. Benito Schwartz MANUAL DIFF REQ NO Normal [facility] Comment on above: Performed By: #### F T4, PSASC #### [facility] [address] [place] [address] Dr. Benito Schwartz MCH (RBC) [Entitic mass] 31.2 pg Normal 25.9-34.0 [facility] Comment on above: Performed By: #### F T4, PSASC #### [facility] [address] [place] [address] Dr. Benito Schwartz MCHC (RBC) [Mass/Vol] 33.6 g/dL Normal 29.9-35.2 [facility] Comment on above: Performed By: #### F T4, PSASC #### [facility] [address] [place] [address] Dr. Benito Schwartz MCV (RBC) [Entitic vol] 92.7 fL Normal 80.0-94.0 [facility] Comment on above: Performed By: #### F T4, PSASC #### [facility] [address] [place] [address] Dr. Benito Schwartz MONO # 0.5 103/ul Normal 0.3-0.8 [facility] Comment on above: Performed By: #### F T4, PSASC #### [facility] [address] [place] [address] Dr. Benito Schwartz Monocytes/100 WBC (Bld) 6.4 % Normal 1.7-12.0 [facility] Comment on above: Performed By: #### F T4, PSASC #### [facility] [address] [place] [address] Dr. Benito Schwartz NEUT # 4.8 103/ul Normal 1.4-6.5 [facility] Comment on above: Performed By: #### F T4, PSASC #### [facility] [address] [place] [address] Dr. Benito Schwartz Neutrophils/100 WBC (Bld) 65.1 % Normal 43.0-75.0 [facility] Comment on above: Performed By: #### F T4, PSASC #### [facility] [address] [place] [address] Dr. Benito Schwartz Platelet mean volume (Bld) [Entitic vol] 8.7 fL Critically low 9.5-13.5 [facility] Comment on above: Performed By: #### F T4, PSASC #### [facility] [address] [place] [address] Dr. Benito Schwartz PLT 206 103/ul Normal 150-450 [facility] Comment on above: Performed By: #### F T4, PSASC #### [facility] [address] [place] [address] Dr. Benito Schwartz RBC 3.98 106/ul Critically low 4.70-6.10 [facility] Comment on above: Performed By: #### F T4, PSASC #### [facility] [address] [place] [address] Dr. Benito Schwartz WBC 7.4 103/ul Normal 4.0-11.0 [facility] Comment on above: Performed By: #### F T4, PSASC #### [facility] [address] [place] [address] Dr. Benito Schwartz MAGNESIUMon 09-09-2022 Magnesium [Mass/Vol] 2.1 mg/dL Normal 1.8-2.4 [facility] Comment on above: Performed By: #### B 12FOL, FETIBC #### [facility] [address] [place] [address] Dr. Benito Schwartz PHOSPHORUSon 09-09-2022 Phosphate [Mass/Vol] 3.2 mg/dL Normal 2.6-4.7 [facility] Comment on above: Performed By: #### B 12FOL, FETIBC #### [facility] [address] [place] [address] Dr. Benito Schwartz PROF CHEM 8 (BAS METB)on Anion gap [Moles/Vol] 10.1 mmol/L Normal Th [facility] Comment on above: Performed By: #### B 12FOL, FETIBC #### [facility] [address] [address] [address] Benito Schwartz Calcium [Mass/Vol] 9.3 mg/dL Normal 8.5-10.1 [facility] Comment on above: Performed By: #### B 12FOL, FETIBC #### [facility] [address] [address] [address] Benito Schwartz Chloride [Moles/Vol] 99 mmol/L Normal 98-107 [facility] Comment on above: Performed By: #### B 12FOL, FETIBC #### [facility] [address] [place] [address] Dr. Benito Schwartz CO2 [Moles/Vol] 32.4 mmol/L Critically high 21.0-32.0 [facility] Comment on above: Performed By: #### B 12FOL, FETIBC #### [facility] [address] [place] [address] Dr. Benito Schwartz Creatinine [Mass/Vol] 2.77 mg/dL Critically high 0.70-1.30 [facility] Comment on above: Performed By: #### B 12FOL, FETIBC #### [facility] [address] [place] [address] Dr. Benito Schwartz EGFR-AF BAHAMIAN 27 mL/min/1.73m2 Critically low >=60 [facility] Comment on above: Performed By: #### B 12FOL, FETIBC #### [facility] [address] [place] [address] Dr. Benito Schwartz EGFR-NON AF BAHAMIAN 22 mL/min/1.73m2 Critically low >=60 [facility] Comment on above: Performed By: #### B 12FOL, FETIBC #### [facility] [address] [place] [address] Dr. Benito Schwartz Glucose [Mass/Vol] 166 mg/dL Critically high 74-106 [facility] Comment on above: Performed By: #### B 12FOL, FETIBC #### [facility] [address] [address] [address] Benito Schwartz Potassium [Moles/Vol] 3.5 mmol/L Normal 3.5-5.1 [facility] Comment on above: Performed By: #### B 12FOL, FETIBC #### [facility] [address] [address] [address] Benito Schwartz Sodium [Moles/Vol] 138 mmol/L Normal 136-145 [facility] Comment on above: Performed By: #### B 12FOL, FETIBC #### [facility] [address] [address] [address] Benito Schwartz Urea nitrogen [Mass/Vol] 50.0 mg/dL Critically high 7.0-18.0 [facility] Comment on above: Performed By: #### B 12FOL, FETIBC #### [facility] [address] [place] [address] Dr. Benito Schwartz Urea nitrogen/Creatinine [Mass ratio] 18.1 mg/mg Normal [facility] Comment on above: Performed By: #### B 12FOL, FETIBC #### [facility] [address] [place] [address] Dr. Beniot Schwartz UA RANDOMon 09-09-2022 Bilirubin Ql (U) Negative Normal NEGATIVE [facility] Comment on above: Performed By: #### V ITAD #### [facility] [address] [place] [address] Dr. Benito Schwartz Clarity (U) CLEAR Normal CLEAR [facility] Comment on above: Performed By: #### V ITAD #### [facility] [address] [place] [address] Dr. Benito Schwartz Color (U) LT. YELLOW Normal YELLOW [facility] Comment on above: Performed By: #### V ITAD #### [facility] [address] [place] [address] Dr. Benito Schwartz Glucose Ql (U) Negative Normal NEGATIVE [facility] Comment on above: Performed By: #### V ITAD #### [facility] [address] [place] [address] Dr. Benito Schwartz Hemoglobin Ql (U) Negative Normal NEGATIVE [facility] Comment on above: Performed By: #### V ITAD #### [facility] [address] [place] [address] Dr. Benito Schwartz Ketones Ql (U) Negative Normal NEGATIVE [facility] Comment on above: Performed By: #### V ITAD #### [facility] [address] [place] [address] Dr. Benito Schwartz LEUKOCYTES Negative Normal NEGATIVE [facility] Comment on above: Performed By: #### V ITAD #### [facility] [address] [place] [address] Dr. Benito Schwartz Nitrite Ql (U) Negative Normal NEGATIVE [facility] Comment on above: Performed By: #### V ITAD #### [facility] [address] [place] [address] Dr. Benito Schwartz pH (U) 5.5 [pH] Normal 5-9 [facility] Comment on above: Performed By: #### V ITAD #### [facility] [address] [place] [address] Dr. Benito Schwartz SPEC GRAVITY 1.010 Normal 1.005-<=1.[address] [place] [address] Comment on above: Performed By: #### V ITAD #### [facility] [address] [place] [address] Dr. Benito Schwartz UA PROTEIN Negative Normal NEGATIVE/ TRACE [facility] Comment on above: Performed By: #### V ITAD #### [facility] [address] [place] [address] Dr. Benito Schwartz Urobilinogen Qn (U) 0.2 {Jagruti'U}/dL Normal 0.2 - 1. 0 [facility] Comment on above: Performed By: #### V ITAD #### [facility] [address] [place] [address] Dr. Benito Schwartz URINE T PROTEIN CREAT RATIOo n 09-09-2022 Protein (U) [Mass/Vol] 16.4 mg/dL Critically high <=12.0 [facility] Comment on above: Performed By: #### T SH, FT3, BMP #### [facility] [address] [address] [address] Benito Schwartz UR PROT CREAT RAT 0.79 Normal [facility] Comment on above: Performed By: #### T SH, FT3, BMP #### [facility] [address] [address] [address] Benito Schwartz URINE CREAT 20.88 mg/dL Normal 20.00-300.00 [facility] Comment on above: Performed By: #### T SH, FT3, BMP #### [facility] [address] [address] [address] Benito Schwartz VITAMIN D 25 OHon 09-09-2022 VIT D 25-OH 83.7 ng/mL Normal [facility] Comment on above: Performed By: #### V ITAD #### [facility] [address] [address] [address] Benito Schwartz VIT D RANGES SEE BELOW Normal [facility] Comment on above: Result Comment: <20 ng/mL Vit D deficient 20 - <30 ng/mL Vit D insufficient 30 - 100 ng/mL Vit D sufficient >100 ng/mL Potential Toxicity Performed By: #### V ITAD #### [facility] [address] [address] [address] Benito Schwartz Albumin [Mass/volume] in Ser um or PlasmaOrdered By: Leigha Nelson on 08-31-2022 Albumin [Mass/Vol] 3.9 g/dL 3.2-5.5 [facility] Basophils Auto (Bld) [#/Vol] Ordered By: Leigha Nelson on 08-31-2022 Basophils (Bld) [#/Vol] 0.0 10*3/uL 0.0-0.2 [facility] Basophils/100 WBC Auto (Bld) Ordered By: Leigha Nelson on 08-31-2022 Basophils/100 WBC (Bld) 0.5 % . F [facility] Creatinine and Glomerular fi ltration rate.predicted panel (S/P/Bld)Ordered By: Leigha Nelson on 08-31-2022 Creatinine [Mass/Vol] 2.63 mg/dL 0.64-1.27 [facility] Eosinophils Auto (Bld) [#/Vo l]Ordered By: Leigha Nelson on 08-31-2022 Eosinophils (Bld) [#/Vol] 0.3 10*3/uL 0.0-0.45 [facility] Eosinophils/100 WBC Auto (Bl d)Ordered By: Leigha Nelson on 08-31-2022 Eosinophils/100 WBC (Bld) 4.3 % . [facility] Erythrocyte distribution wid th Auto (RBC) [Ratio]Ordered By: Leigha Nelson on 08-31-2022 Erythrocyte distribution width (RBC) [Ratio] 15.7 % 12.0-14.8 [facility] Estimated glomerular filtrat ion rate (GFR) non- AmericanOrdered By: Leigha Nelson on 08-31-2022 GFR/1.73 sq M.predicted among non-blacks MDRD (S/P/Bld) [Vol rate/Area] 24 mL/Min [facility] Globulin Calc (S) [Mass/Vol] Ordered By: Leigha Nelson on 08-31-2022 Globulin (S) [Mass/Vol] 2.8 g/dL [facility] Hematocrit Auto (Bld) [Volum e fraction]Ordered By: Leigha Nelson on 08-31-2022 Hematocrit (Bld) [Volume fraction] 37.2 % 38.8-50.0 [facility] Hemoglobin [Mass/volume] in BloodOrdered By: Leigha Nelson on 08-31-2022 Hemoglobin (Bld) [Mass/Vol] 12.4 g/dL 13.0-17.0 [facility] - Hematology and Cell countsOrdered By: Leigha Nelson on 08-31-2022 Nucleated RBC/100 WBC (Bld) [Ratio] 0.1 % 0-0.5 [facility] Leukocytes [#/volume] in Blo od by Automated countOrdered By: Leigha Nelson on 08-31-2022 WBC (Bld) [#/Vol] 6.7 10*3/uL 4.5-11.0 [facility] Lymphocytes Auto (Bld) [#/Vo l]Ordered By: Leigha Nelson on 08-31-2022 Lymphocytes (Bld) [#/Vol] 1.2 10*3/uL 1.00-4.8 [facility] Lymphocytes/100 WBC Auto (Bl d)Ordered By: Leigha Omar on 08-31-2022 Lymphocytes/100 WBC (Bld) 18.5 % . [facility] MCH Auto (RBC) [Entitic mass ]Ordered By: Leigha Nelson on 08-31-2022 MCH (RBC) [Entitic mass] 31.0 pg 27.5-35.2 [facility] MCHC Auto (RBC) [Mass/Vol]Or dered By: Leigha Nelson on 08-31-2022 MCHC (RBC) [Mass/Vol] 33.4 g/dL 32.5-35.6 [facility] MCV Auto (RBC) [Entitic vol] Ordered By: Leigha Nelson on 08-31-2022 MCV (RBC) [Entitic vol] 92.9 fL 83.5-101 F [facility] Monocytes Auto (Bld) [#/Vol] Ordered By: Leigha Nelson on 08-31-2022 Monocytes (Bld) [#/Vol] 0.6 10*3/uL 0.0-0.8 [facility] Monocytes/100 WBC Auto (Bld) Ordered By: Leigha Nelson on 08-31-2022 Monocytes/100 WBC (Bld) 8.4 % . F [facility] Neutrophils Auto (Bld) [#/Vo l]Ordered By: Leigha Nelson on 08-31-2022 Neutrophils (Bld) [#/Vol] 4.6 10*3/uL 1.8-7.7 [facility] Neutrophils/100 WBC Auto (Bl d)Ordered By: Leigha Nelson on 08-31-2022 Neutrophils/100 WBC (Bld) 68.3 % . [facility] No Panel InformationOrdered By: Leigha Omar on 08-31-2022 Estimated GFR () 29 mL/Min [facility] Comment on above: GFR estimated refere nce range: According to KDOQI guidelines, <60 ml/min/1.73m2 is sufficient to diagnose a patient with chronic kidney disease. Pharmacy Creatinine Clearance (Chem 26.08 [facility] Platelet mean volume Auto (B ld) [Entitic vol]Ordered By: Leigha Nelson on 08-31-2022 Platelet mean volume (Bld) [Entitic vol] 6.8 fL 6.6-10.1 [facility] Platelets Auto (Bld) [#/Vol] Ordered By: Leigha Nelson on 08-31-2022 Platelets (Bld) [#/Vol] 238 10*3/uL 150-450 [facility] Protein [Mass/volume] in Ser um or PlasmaOrdered By: Leigha Nelson on 08-31-2022 Protein [Mass/Vol] 6.7 g/dL 6.1-7.9 [facility] RBC Auto (Bld) [#/Vol]Ordere d By: Leigha Nelson on 08-31-2022 RBC (Bld) [#/Vol] 4.00 10*6/uL 3.90-5.60 [facility] Serum or plasma alanine paige otransferase measurement without P-5'-P (enzymatic activiOrdered By: Leigha Nelson on 08-31-2022 ALT No additional P-5'-P [Catalytic activity/Vol] 26 U/L [facility] Serum or plasma albumin/glob ulin mass ratioOrdered By: Leigha Nelson on 08-31-2022 Albumin/Globulin [Mass ratio] 1.4 {ratio} [facility] Serum or plasma alkaline mega sphatase measurement (enzymatic activity/volume)Ordered By: Leigha Nelson on 08-31-2022 ALP [Catalytic activity/Vol] 112 U/L 32-92 [facility] Serum or plasma anion gap de terminationOrdered By: Leigha Nelson on 08-31-2022 Anion gap [Moles/Vol] 9.4 mmol/L 6.0-15.0 [facility] Serum or plasma aspartate am inotransferase measurement (enzymatic activity/volume)Ordered By: Leigha Nelson on 08-31-2022 AST [Catalytic activity/Vol] 32 U/L 10-42 [facility] Serum or plasma calcium darshan urement (mass/volume)Ordered By: Leigha Nelson on 08-31-2022 Calcium [Mass/Vol] 8.9 mg/dL 8.2-10.2 [facility] Serum or plasma carcinoembry onic antigen measurement (mass/volume)Ordered By: Leigha Nelson on 08-31-2022 Carcinoembryonic Ag [Mass/Vol] 2.5 ng/mL 0.0-3.0 [facility] Serum or plasma chloride ernestine surement (moles/volume)Ordered By: Leigha Nelson on 08-31-2022 Chloride [Moles/Vol] 98 mmol/L 95-114 [facility] Serum or plasma glucose darshan urement (mass/volume)Ordered By: Leigha Nelson on 08-31-2022 Glucose [Mass/Vol] 104 mg/dL 70-100 [facility] Comment on above: ADA recommended refe rence rangeRandom Glucose Reference Range is dependent on time and content of last meal. Glucose of more than 200 mg/dL in a nonstressed, ambulatory subject supports the diagnosis of Diabetes Mellitus. Serum or plasma potassium me asurement (moles/volume)Ordered By: Leigha Nelson on 08-31-2022 Potassium [Moles/Vol] 3.4 mmol/L 3.5-5.1 [facility] Serum or plasma sodium measu rement (moles/volume)Ordered By: Leigha Nelson on 08-31-2022 Sodium [Moles/Vol] 135 mmol/L 136-146 [facility] Serum or plasma total biliru bin measurement (mass/volume)Ordered By: Leigha Nelson on 08-31-2022 Bilirubin [Mass/Vol] 0.8 mg/dL 0.3-1.2 [facility] Serum or plasma total carbon dioxide measurement (moles/volume)Ordered By: Leigha Nelson on 08-31-2022 CO2 [Moles/Vol] 31.0 mmol/L 22.0-30.0 [facility] Serum or plasma urea nitroge n measurement (mass/volume)Ordered By: Leigha Nelson on 08-31-2022 Urea nitrogen [Mass/Vol] 40 mg/dL 9-23 [facility] T3, TOTAL (TRIIODOTHYRONINE) on 08-31-2022 T3, TOTAL 42 ng/dL Critically low 71-180 [facility] Comment on above: Performed By: #### F T4, PSASC #### [facility] [address] [address] [address] Benito Schwartz FREE T4on 08-30-2022 Free T4 [Mass/Vol] 0.11 ng/dL Critically low 0.76-1.46 Th [facility] Comment on above: Performed By: #### V ITAD #### [facility] [address] [address] [address] Benito Schwartz TSHon 08-30-2022 TSH 121.477 uIU/mL Critically high 0.358-3.740 [facility] Comment on above: Performed By: #### F T4 #### [facility] [address] [place] [address] Dr. Benito Schwartz Glucose Glucometer (BldC) [M ass/Vol]Ordered By: Ramesh Rascon on 07-21-2022 Glucose [Mass/Vol] 105 mg/dL [facility] Comment on above: Random Glucose Refer ence Range is dependent on time and content of last meal. Glucose of more than 200 mg/dL in a nonstressed, ambulatory subject supports the diagnosis of Diabetes Mellitus. T3, TOTAL (TRIIODOTHYRONINE) on 07-21-2022 T3, TOTAL 56 ng/dL Critically low 71-180 [facility] Comment on above: Performed By: #### F T4, PSASC #### [facility] [address] [address] [address] Benito Schwartz FREE T4on 07-20-2022 Free T4 [Mass/Vol] 0.48 ng/dL Critically low 0.76-1.46 Th [facility] Comment on above: Performed By: #### V ITAD #### [facility] [address] [place] [address] Dr. Benito Schwartz TSHon 07-20-2022 TSH 67.173 uIU/mL Critically high 0.358-3.740 [facility] Comment on above: Performed By: #### U RTPCR #### [facility] [address] [address] [address] Benito Schwartz COVID-19 SOFIAOrdered By: Lucia Rascon on 07-19-2022 SARS-CoV+SARS-CoV-2 (COVID-19) Ag IA.rapid Ql (Resp) Negative Negative [facility] Comment on above: This is a duplicate Lindsay SARS Antigen (MADHU) result to be used for statistical tracking purpose only. No Panel InformationOrdered By: Ramesh Rascon on 07-19-2022 SARS Antigen (LFIA) [facility] Albumin [Mass/volume] in Ser um or PlasmaOrdered By: Chivo Keller on 05-31-2022 Albumin [Mass/Vol] 3.9 g/dL 3.2-5.5 [facility] Basophils Auto (Bld) [#/Vol] Ordered By: Chivo Keller on 05-31-2022 Basophils (Bld) [#/Vol] 0.1 10*3/uL 0.0-0.2 [facility] Basophils/100 WBC Auto (Bld) Ordered By: Chivo Keller on 05-31-2022 Basophils/100 WBC (Bld) 0.8 % . F [facility] Blood hemoglobin measurement (mass/volume)Ordered By: Chivo Keller on 05-31-2022 Hemoglobin (Bld) [Mass/Vol] 11.1 g/dL 13.0-17.0 [facility] Blood leukocytes automated c ount (number/volume)Ordered By: Chivo Keller on 05-31-2022 WBC (Bld) [#/Vol] 8.8 10*3/uL 4.5-11.[address] [facility] [address] biopsyOrdered By: Danuta Kelly on 05-31-2022 Transferrin [Mass/Vol] 210 mg/dL 180-380 [facility] Creatinine (Bld) [Mass/Vol]O rdered By: Nikunj Shultz on 05-31-2022 Creatinine [Mass/Vol] 2.4 mg/dL 0.6-1.3 [facility] Comment on above: ER/ESD physician is notified/shown all ISTAT results. Critical values may be confirmed by laboratory testing if deemed necessary by ER attending doctor. ER/ESD physician is notified/shown all ISTAT results.Critical values may be confirmed by laboratory testing ifdeemed necessary by ER attending doctor. Creatinine and Glomerular fi ltration rate.predicted panel (S/P/Bld)Ordered By: Chivo Keller on 05-31-2022 Creatinine [Mass/Vol] 2.23 mg/dL 0.64-1.27 [facility] Eosinophils Auto (Bld) [#/Vo l]Ordered By: Chivo Keller on 05-31-2022 Eosinophils (Bld) [#/Vol] 0.4 10*3/uL 0.0-0.45 [facility] Eosinophils/100 WBC Auto (Bl d)Ordered By: Chivo Keller on 05-31-2022 Eosinophils/100 WBC (Bld) 4.1 % . [facility] Erythrocyte distribution wid th Auto (RBC) [Ratio]Ordered By: Chivo Keller on 05-31-2022 Erythrocyte distribution width (RBC) [Ratio] 16.4 % 12.0-14.8 [facility] Estimated glomerular filtrat ion rate (GFR) non- AmericanOrdered By: Chivo Keller on 05-31-2022 GFR/1.73 sq M.predicted among non-blacks MDRD (S/P/Bld) [Vol rate/Area] 28 mL/Min [facility] Ferritin [Mass/volume] in Se rum or PlasmaOrdered By: Danuta Kelly on 05-31-2022 Ferritin [Mass/Vol] 96.9 ng/mL 23.9-336.2 [facility] Folate [Mass/volume] in Seru m or PlasmaOrdered By: Danuta Kelly on 05-31-2022 Folate [Mass/Vol] 17.7 ng/mL >5.9 [facility] Comment on above: Folate reference ran ge: >5.9 ng/ml The WHO technical consultation on folate and vitamin b12 deficiencies has determined that folate concentrations less than 4 ng/ml are considered deficient. Folate reference ran ge: >5.9 ng/mlThe WHO technical consultation on folate and vitamin [id number] has determined that folate concentrations lessthan 4 ng/ml are considered deficient. Globulin Calc (S) [Mass/Vol] Ordered By: Chivo Keller on 05-31-2022 Globulin (S) [Mass/Vol] 3.4 g/dL F [facility] Hematocrit Auto (Bld) [Volum e fraction]Ordered By: Chivo Keller on 05-31-2022 Hematocrit (Bld) [Volume fraction] 33.6 % 38.8-50.0 [facility] Iron [Mass/volume] in Serum or PlasmaOrdered By: Danuta Kelly on 05-31-2022 Iron [Mass/Vol] 42 ug/dL 40-160 [facility] Iron binding capacity [Mass/ volume] in Serum or PlasmaOrdered By: Danuta Kelly on 05-31-2022 Iron binding capacity [Mass/Vol] 294 ug/dL 255-450 [facility] Iron saturation [Mass Fracti on] in Serum or PlasmaOrdered By: Danuta Kelly on 05-31-2022 Iron saturation [Mass fraction] 14.0 % 20-50 [facility] - Chemistry and C hemistry - challengeOrdered By: Danuta Kelly on 05-31-2022 Cobalamin (Vitamin B12) [Mass/Vol] 463 pg/mL 180-914 [facility] - Hematology and Cell countsOrdered By: Chivo Keller on 05-31-2022 Nucleated RBC/100 WBC (Bld) [Ratio] 0.0 % 0-0.5 [facility] Lymphocytes Auto (Bld) [#/Vo l]Ordered By: Chivo Keller on 05-31-2022 Lymphocytes (Bld) [#/Vol] 1.5 10*3/uL 1.00-4.8 [facility] Lymphocytes/100 WBC Auto (Bl d)Ordered By: Chivo Keller on 05-31-2022 Lymphocytes/100 WBC (Bld) 17.2 % . [facility] MCH Auto (RBC) [Entitic mass ]Ordered By: Chivo Keller on 05-31-2022 MCH (RBC) [Entitic mass] 29.2 pg 27.5-35.2 [facility] MCHC Auto (RBC) [Mass/Vol]Or dered By: Chivo Keller on 05-31-2022 MCHC (RBC) [Mass/Vol] 33.1 g/dL 32.5-35.6 [facility] MCV Auto (RBC) [Entitic vol] Ordered By: Chivo Keller on 05-31-2022 MCV (RBC) [Entitic vol] 88.2 fL 83.5-101 F [facility] Monocytes Auto (Bld) [#/Vol] Ordered By: Chivo Keller on 05-31-2022 Monocytes (Bld) [#/Vol] 0.7 10*3/uL 0.0-0.8 [facility] Monocytes/100 WBC Auto (Bld) Ordered By: Chivo Keller on 05-31-2022 Monocytes/100 WBC (Bld) 8.0 % . F [facility] Neutrophils Auto (Bld) [#/Vo l]Ordered By: Chivo Keller on 05-31-2022 Neutrophils (Bld) [#/Vol] 6.2 10*3/uL 1.8-7.7 [facility] Neutrophils/100 WBC Auto (Bl d)Ordered By: Chivo Keller on 05-31-2022 Neutrophils/100 WBC (Bld) 69.9 % . [facility] No Panel InformationOrdered By: Nikunj Shultz on 05-31-2022 POC Estimated GFR 32 [facility] Comment on above: GFR estimated refere nce range: According to KDOQI guidelines, <60 ml/min/1.73m2 is sufficient to diagnose a patient with chronic kidney disease. POC Estimated GFR Non- Amer 26 [facility] No Panel InformationOrdered By: Chivo Keller on 05-31-2022 Estimated GFR () 34 mL/Min [facility] Comment on above: GFR estimated refere nce range: According to KDOQI guidelines, <60 ml/min/1.73m2 is sufficient to diagnose a patient with chronic kidney disease. Pharmacy Creatinine Clearance (Chem 31.14 [facility] Platelet mean volume Auto (B ld) [Entitic vol]Ordered By: Chivo Keller on 05-31-2022 Platelet mean volume (Bld) [Entitic vol] 7.0 fL 6.6-10.1 [facility] Platelets Auto (Bld) [#/Vol] Ordered By: Chivo Keller on 05-31-2022 Platelets (Bld) [#/Vol] 308 10*3/uL 150-450 [facility] Protein [Mass/volume] in Ser um or PlasmaOrdered By: Chivo Keller on 05-31-2022 Protein [Mass/Vol] 7.3 g/dL 6.1-7.9 [facility] RBC Auto (Bld) [#/Vol]Ordere d By: Chivo Keller on 05-31-2022 RBC (Bld) [#/Vol] 3.81 10*6/uL 3.90-5.60 [facility] Serum or plasma alanine paige otransferase measurement without P-5'-P (enzymatic activiOrdered By: Chivo Keller on 05-31-2022 ALT No additional P-5'-P [Catalytic activity/Vol] 17 U/L 10-60 [facility] Serum or plasma albumin/glob ulin mass ratioOrdered By: Chivo Keller on 05-31-2022 Albumin/Globulin [Mass ratio] 1.1 {ratio} [facility] Serum or plasma alkaline mega sphatase measurement (enzymatic activity/volume)Ordered By: Chivo Keller on 05-31-2022 ALP [Catalytic activity/Vol] 140 U/L 32-92 [facility] Serum or plasma aspartate am inotransferase measurement (enzymatic activity/volume)Ordered By: Chivo Keller on 05-31-2022 AST [Catalytic activity/Vol] 22 U/L 10-42 [facility] Serum or plasma calcium darshan urement (mass/volume)Ordered By: Chivo Keller on 05-31-2022 Calcium [Mass/Vol] 9.5 mg/dL 8.2-10.2 [facility] Serum or plasma carcinoembry onic antigen measurement (mass/volume)Ordered By: Chivo Keller on 05-31-2022 Carcinoembryonic Ag [Mass/Vol] 1.8 ng/mL 0.0-3.0 [facility] Serum or plasma chloride ernestine surement (moles/volume)Ordered By: Chivo Keller on 05-31-2022 Chloride [Moles/Vol] 101 mmol/L 95-114 [facility] Serum or plasma glucose darshan urement (mass/volume)Ordered By: Chivo Keller on 05-31-2022 Glucose [Mass/Vol] 108 mg/dL 70-100 [facility] Comment on above: ADA recommended refe rence range Random Glucose Reference Range is dependent on time and content of last meal. Glucose of more than 200 mg/dL in a nonstressed, ambulatory subject supports the diagnosis of Diabetes Mellitus. ADA recommended refe rence rangeRandom Glucose Reference Range is dependent on time and content of last meal. Glucose of more than 200 mg/dL in a nonstressed, ambulatory subject supports the diagnosis of Diabetes Mellitus. Serum or plasma potassium me asurement (moles/volume)Ordered By: Chivo Keller on 05-31-2022 Potassium [Moles/Vol] 4.4 mmol/L 3.5-5.1 [facility] Serum or plasma sodium measu rement (moles/volume)Ordered By: Chivo Keller on 05-31-2022 Sodium [Moles/Vol] 140 mmol/L 136-146 [facility] Serum or plasma total biliru bin measurement (mass/volume)Ordered By: Chivo Keller on 05-31-2022 Bilirubin [Mass/Vol] 0.5 mg/dL 0.3-1.2 [facility] Serum or plasma total carbon dioxide measurement (moles/volume)Ordered By: Chivo Keller on 05-31-2022 CO2 [Moles/Vol] 29.7 mmol/L 22.0-30.0 [facility] Serum or plasma urea nitroge n measurement (mass/volume)Ordered By: Chivo Keller on 05-31-2022 Urea nitrogen [Mass/Vol] 42 mg/dL 9- [facility] CBC W/DIFFon 05-26-2022 ABS IMM GRANS 0.1 10*3/uL Normal 0.0-0.2 [facility] Comment on above: Performed By: #### 5 0103 #### [facility] [address] [place] [address], [facility] ABS NEUTROPHILS 6.4 10*3/uL Normal 1.6-7.6 [facility] Comment on above: Performed By: #### 5 0103 #### [facility] [address] [place] [address], [facility] Basophils (Bld) [#/Vol] 0.0 10*3/uL Normal 0.0-0.2 [facility] Comment on above: Performed By: #### 5 0103 #### [facility] [address] [place] [address], [facility] Basophils/100 WBC (Bld) 0.4 % Normal 0.0-1.0 [facility] Comment on above: Performed By: #### 5 0103 #### [facility] [address] [place] [address], [facility] Eosinophils (Bld) [#/Vol] 0.4 10*3/uL Normal 0.0-0.5 [facility] Comment on above: Performed By: #### 5 0103 #### [facility] [address] [place] [address], [facility] Eosinophils/100 WBC (Bld) 4.3 % Normal 0.0-6.0 [facility] Comment on above: Performed By: #### 5 0103 #### [facility] [address] [place] [id number], [facility] Erythrocyte distribution width (RBC) [Ratio] 15.9 % High 11.5-15.0 [facility] Comment on above: Performed By: #### 5 3 #### [facility] [address] [place] [id number], [facility] Hematocrit (Bld) [Volume fraction] 31.6 % Low 39.0-50.0 [facility] Comment on above: Performed By: #### 5 0103 #### [facility] [address] [facility] [address] Hemoglobin (Bld) [Mass/Vol] 10.0 g/dL Low 13.0-17.0 [facility] Comment on above: Performed By: #### 3 #### [facility] [address] IMMATURE GRANS 0.8 % Normal 0.0-1.0 [facility] Comment on above: Performed By: #### 102 #### [facility] [address] Lymphocytes (Bld) [#/Vol] 1.6 10*3/uL Normal 1.2-4.0 [facility] Comment on above: Performed By: #### 102 #### [facility] [address] Lymphocytes/100 WBC (Bld) 16.8 % Low 20.0-45.0 [facility] Comment on above: Performed By: #### 3 #### [facility] [address] MCH (RBC) [Entitic mass] 28.7 pg Normal 27.0-33.0 [facility] Comment on above: Performed By: #### 5 3 #### [facility] [address] MCHC (RBC) [Mass/Vol] 31.6 g/dL Low 32.0-35.0 [facility] Comment on above: Performed By: #### 3 #### [facility] [address] MCV (RBC) [Entitic vol] 90.5 fL Normal 82.0-98.0 [facility] Comment on above: Performed By: #### 5 0103 #### [facility] [address] [place] [address], [facility] Monocytes (Bld) [#/Vol] 0.8 10*3/uL Normal 0.1-1.0 [facility] Comment on above: Performed By: #### 102 #### [facility] [address] [place] [address], [facility] MONOS 9.0 % Normal 5.0-12.0 [facility] Comment on above: Performed By: #### 102 #### [facility] [address] [facility] [place] [address], [facility] Neutrophils/100 WBC (Bld) 68.7 % Normal 40.0-72.0 [facility] Comment on above: Performed By: #### 102 #### [facility] [address] [facility] [place] [address], [facility] Nucleated RBC/100 WBC (Bld) [Ratio] 0 % Normal 0-0 [facility] Comment on above: Performed By: #### 102 #### [facility] [address] [facility] [place] [address], [facility] PLAT CNT 292 10*3/uL Normal 150-400 [facility] Comment on above: Performed By: #### 102 #### [facility] [address] [facility] [place] [address], [facility] RBC (Bld) [#/Vol] 3.49 10*6/uL Low 4.20-5.70 [facility] Comment on above: Performed By: #### 102 #### [facility] [address] [facility] [place] [address], [facility] WBC (Bld) [#/Vol] 9.29 10*3/uL Normal 4.00-10.60 [facility] Comment on above: Performed By: #### 102 #### [facility] [address] [facility] [place] [address], [facility] IMMUNOGLOBULIN Jovany 2 [place] Normal [facility] Comment on above: Result Comment: Test Performed by [facility] [id number] [place] [address] - Released 05/27/2022 12:45 IMMUNOGLOBULIN E 308 IU/mL High <101 [facility] THYROID-STIMULATING IMMUNOGL OBULINon 05-14-2022 Thyroid Sim Immunoglobulin <0.10 Normal 0.00-0.55 [facility] Comment on above: Performed By: #### C BC #### [facility] [address] [place] [address] Dr. Benito Schwartz THYROTROPIN RECEPTOR ABon Thyrotropin Receptor Ab, Serum <1.10 Normal 0.00-1.75 [facility] Comment on above: Performed By: #### C BC #### [facility] [address] [place] [address] Dr. Benito Schwartz PTH INTACTon 05-13-2022 PTH, Intact 18 pg/mL Normal 15-65 [facility] Comment on above: Performed By: #### C BC #### [facility] [address] [place] [address] Dr. Benito Schwartz T3, TOTAL (TRIIODOTHYRONINE) on 05-13-2022 T3, TOTAL 80 ng/dL Normal 71-180 [facility] Comment on above: Performed By: #### U RTPCR #### [facility] [address] [place] [address] Dr. Benito Schwartz VIT D 25-OH [facility] 2021 Vitamin D, 25-Hydroxy 84.3 ng/mL Normal 30.0-100.0 [facility] Comment on above: Result Comment: Randi min D deficiency has been defined by the [place] [employer] and an Endocrine Society practice guideline as a level of serum 25-OH vitamin D less than 20 ng/mL (1,2). The Endocrine Society went on to further define vitamin D insufficiency as a level between 21 and 29 ng/mL (2). 1. IOM ([place] [employer]). 2010. Dietary reference intakes for calcium and D. [place]: The National Academies Press. 2. Annamarie MF, Milena [place], Jamin BURGESS, et al. Evaluation, treatment, and prevention of vitamin D deficiency: an Endocrine Society clinical practice guideline. JCEM. 2010; 96(7):1911-30. Performed By: #### U RTPCR #### [facility] [address] [place] [address] Dr. Benito Schwartz CBC AUTO DIFFon 05-12-2022 BASO # 0.0 103/ul Normal 0.0-0.1 [facility] Comment on above: Performed By: #### C BC #### [facility] [address] [place] [address] Dr. Benito Schwartz Basophils/100 WBC (Bld) 0.2 % Normal 0.2-2.0 [facility] Comment on above: Performed By: #### C BC #### [facility] [address] [place] [address] Dr. Benito Schwartz EO # 0.4 103/ul Normal 0.0-0.7 [facility] Comment on above: Performed By: #### C BC #### [facility] [address] [place] [address] Dr. Benito Schwartz Eosinophils/100 WBC (Bld) 4.4 % Normal 0.9-7.0 [facility] Comment on above: Performed By: #### C BC #### [facility] [address] [place] [address] Dr. Benito Schwartz Erythrocyte distribution width (RBC) [Ratio] 15.0 % Normal 11.0-15.0 [facility] Comment on above: Performed By: #### C BC #### [facility] [address] [place] [address] Dr. Benito Schwartz Hematocrit (Bld) [Volume fraction] 29.8 % Critically low 42.0-54.0 [facility] Comment on above: Performed By: #### C BC #### [facility] [address] [place] [address] Dr. Benito Schwartz Hemoglobin (Bld) [Mass/Vol] 9.7 g/dL Critically low 14.0-18.0 [facility] Comment on above: Performed By: #### C BC #### [facility] [address] [place] [address] Dr. Benito Schwartz IG # 0.06 10e3/ul Critically high 0.00-0.03 [facility] Comment on above: Performed By: #### C BC #### [facility] [address] [place] [address] Dr. Benito Schwartz IG % 0.7 % Critically high 0.0-0.5 [facility] Comment on above: Performed By: #### C BC #### [facility] [address] [place] [address] Dr. Benito Schwartz LYMPH # 1.9 103/ul Normal 1.2-3.8 [facility] Comment on above: Performed By: #### C BC #### [facility] [address] [place] [address] Dr. Benito Schwartz Lymphocytes/100 WBC (Bld) 21.1 % Normal 20.5-60.0 [facility] Comment on above: Performed By: #### C BC #### [facility] [address] [place] [address] Dr. Benito Schwartz MANUAL DIFF REQ NO Normal [facility] Comment on above: Performed By: #### C BC #### [facility] [address] [place] [address] Dr. Benito Schwartz MCH (RBC) [Entitic mass] 29.0 pg Normal 25.9-34.0 [facility] Comment on above: Performed By: #### C BC #### [facility] [address] [place] [address] Dr. Benito Schwartz MCHC (RBC) [Mass/Vol] 32.6 g/dL Normal 29.9-35.2 [facility] Comment on above: Performed By: #### C BC #### [facility] [address] [place] [address] Dr. Benito Schwartz MCV (RBC) [Entitic vol] 89.0 fL Normal 80.0-94.0 [facility] Comment on above: Performed By: #### C BC #### [facility] [address] [address] [address] Benito Schwartz MONO # 0.9 103/ul Critically high 0.3-0.8 [facility] Comment on above: Performed By: #### C BC #### [facility] [address] [address] [address] Benito Schwartz Monocytes/100 WBC (Bld) 9.9 % Normal 1.7-12.0 [facility] Comment on above: Performed By: #### C BC #### [facility] [address] [place] [address] Dr. Benito Schwartz NEUT # 5.8 103/ul Normal 1.4-6.5 [facility] Comment on above: Performed By: #### C BC #### [facility] [address] [place] [address] Dr. Benito Schwartz Neutrophils/100 WBC (Bld) 63.7 % Normal 43.0-75.0 [facility] Comment on above: Performed By: #### C BC #### [facility] [address] [place] [address] Dr. Benito Schwartz Platelet mean volume (Bld) [Entitic vol] 8.7 fL Critically low 9.5-13.5 [facility] Comment on above: Performed By: #### C BC #### [facility] [address] [place] [address] Dr. Benito Schwartz PLT 253 103/ul Normal 150-450 [facility] Comment on above: Performed By: #### C BC #### [facility] [address] [address] [address] Benito Schwartz RBC 3.35 106/ul Critically low 4.70-6.10 [facility] Comment on above: Performed By: #### C BC #### [facility] [address] [address] [address] Benito Schwartz WBC 9.1 103/ul Normal 4.0-11.0 [facility] Comment on above: Performed By: #### C BC #### [facility] [address] [place] [address] Dr. Benito Schwartz FREE T4on 05-12-2022 Free T4 [Mass/Vol] 1.25 ng/dL Normal 0.76-1.46 [facility] Comment on above: Performed By: #### V ITAD #### [facility] [address] [place] [address] Dr. Benito Schwartz MAGNESIUMon 05-12-2022 Magnesium [Mass/Vol] 2.1 mg/dL Normal 1.8-2.4 [facility] Comment on above: Performed By: #### F T4 #### [facility] [address] [place] [address] Dr. Benito Schwartz PHOSPHORUSon 05-12-2022 Phosphate [Mass/Vol] 4.2 mg/dL Normal 2.6-4.7 [facility] Comment on above: Performed By: #### F T4 #### [facility] [address] [place] [address] Dr. Benito Schwartz PROF CHEM 8 (BAS METB)on Anion gap [Moles/Vol] 13.4 mmol/L Normal [facility] Comment on above: Performed By: #### F T4 #### [facility] [address] [place] [address] Dr. Benito Schwartz Calcium [Mass/Vol] 9.1 mg/dL Normal 8.5-10.1 [facility] Comment on above: Performed By: #### F T4 #### [facility] [address] [place] [address] Dr. Benito Schwartz Chloride [Moles/Vol] 103 mmol/L Normal 98-107 [facility] Comment on above: Performed By: #### F T4 #### [facility] [address] [place] [address] Dr. Benito Schwartz CO2 [Moles/Vol] 28.6 mmol/L Normal 21.0-32.0 [facility] Comment on above: Performed By: #### F T4 #### [facility] [address] [place] [address] Dr. Benito Schwartz Creatinine [Mass/Vol] 2.30 mg/dL Critically high 0.70-1.30 [facility] Comment on above: Performed By: #### F T4 #### [facility] [address] [place] [address] Dr. Benito Schwartz EGFR-AF BAHAMIAN 33 mL/min/1.73m2 Critically low >=60 [facility] Comment on above: Performed By: #### F T4 #### [facility] [address] [address] [address] Benito Schwartz EGFR-NON AF BAHAMIAN 27 mL/min/1.73m2 Critically low >=60 [facility] Comment on above: Performed By: #### F T4 #### [facility] [address] [place] [address] Dr. Benito Schwartz Glucose [Mass/Vol] 123 mg/dL Critically high 74-106 T [facility] Comment on above: Performed By: #### F T4 #### [facility] [address] [place] [address] Dr. Benito Schwartz Potassium [Moles/Vol] 4.0 mmol/L Normal 3.5-5.1 [facility] Comment on above: Performed By: #### F T4 #### [facility] [address] [place] [address] Dr. Benito Schwartz Sodium [Moles/Vol] 141 mmol/L Normal 136-145 [facility] Comment on above: Performed By: #### F T4 #### [facility] [address] [place] [address] Dr. Benito Schwartz Urea nitrogen [Mass/Vol] 51.0 mg/dL Critically high 7.0-18.0 [facility] Comment on above: Performed By: #### F T4 #### [facility] [address] [place] [address] Dr. Benito Schwartz Urea nitrogen/Creatinine [Mass ratio] 22.2 mg/mg Normal [facility] Comment on above: Performed By: #### F T4 #### [facility] [address] [place] [address] Dr. Benito Schwartz TSHon 05-12-2022 TSH Qn m[IU]/L Critically low 0.358-3.740 [facility] Comment on above: Performed By: #### C BC #### [facility] [address] [place] [address] Dr. Benito Schwartz UA RANDOMon 05-12-2022 Bilirubin Ql (U) Negative Normal NEGATIVE [facility] Comment on above: Performed By: #### U RTPCR #### [facility] [address] [place] [address] Dr. Benito Schwartz Clarity (U) CLEAR Normal CLEAR [facility] Comment on above: Performed By: #### U RTPCR #### [facility] [address] [place] [address] Dr. Benito Schwartz Color (U) LT. YELLOW Normal YELLOW [facility] Comment on above: Performed By: #### U RTPCR #### [facility] [address] [place] [address] Dr. Benito Schwartz Glucose Ql (U) Negative Normal NEGATIVE [facility] Comment on above: Performed By: #### U RTPCR #### [facility] [address] [place] [address] Dr. Benito Schwartz Hemoglobin Ql (U) Negative Normal NEGATIVE [facility] Comment on above: Performed By: #### U RTPCR #### [facility] [address] [place] [address] Dr. Benito Schwartz Ketones Ql (U) Negative Normal NEGATIVE [facility] Comment on above: Performed By: #### U RTPCR #### [facility] [address] [place] [address] Dr. Benito Schwartz LEUKOCYTES Negative Normal NEGATIVE [facility] Comment on above: Performed By: #### U RTPCR #### [facility] [address] [place] [address] Dr. Benito Schwartz Nitrite Ql (U) Negative Normal NEGATIVE [facility] Comment on above: Performed By: #### U RTPCR #### [facility] [address] [place] [address] Dr. Benito Schwartz pH (U) 5.5 [pH] Normal 5-9 [facility] Comment on above: Performed By: #### U RTPCR #### [facility] [address] [place] [address] Dr. Benito Schwartz SPEC GRAVITY 1.010 Normal 1.005-<=1.02 5 [facility] Comment on above: Performed By: #### U RTPCR #### [facility] [address] [place] [address] Dr. Benito Schwartz UA PROTEIN Negative Normal NEGATIVE/ TRACE [facility] Comment on above: Performed By: #### U RTPCR #### [facility] [address] [place] [address] Dr. Benito Schwartz Urobilinogen Qn (U) 0.2 {Jagruti'U}/dL Normal 0.2 - 1. 0 [facility] Comment on above: Performed By: #### U RTPCR #### [facility] [address] [place] [address] Dr. Benito Schwartz URINE T PROTEIN CREAT RATIOo n 05-12-2022 Protein (U) [Mass/Vol] 18.3 mg/dL Critically high <=12.0 [facility] Comment on above: Performed By: #### U RTPCR #### [facility] [address] [place] [address] Dr. Benito Schwartz UR PROT CREAT RAT 0.39 Normal [facility] Comment on above: Performed By: #### U RTPCR #### [facility] [address] [place] [address] Dr. Benito Schwartz URINE CREAT 47.44 mg/dL Normal 20.00-300.00 [facility] Comment on above: Performed By: #### U RTPCR #### [facility] [address] [place] [address] Dr. Benito Schwartz HEMOGLOBINon 05-10-2022 Hemoglobin (Bld) [Mass/Vol] 9.6 g/dL Critically low 14.0-18.0 [facility] Comment on above: Performed By: #### F T4, PSASC #### [facility] [address] [place] [address] Dr. Benito Schwartz NM THY SCAN W Lenin 04-28-20 22 NM THY SCAN W UPT EXAMINATION: NM THY SCAN W UPT HISTORY: Hyperthyroidism COMPARISON: TECHNIQUE: After obtaining patient consent, 259.9 uCi I-123 was administered orally. Uptake was evaluated between 4 and 6 hours and at 24 hours. Images were acquired at 4 - 6 hours. FINDINGS: THYROID SCAN: Very faint amount of uptake identified throughout the thyroid gland. No focal hot or cold nodule. Six-hour uptake: 1.9% normal range 6-40% 24 uptake: 1.3%, normal 10-30% IMPRESSION: Very low thyroid uptake with faintly visualized thyroid tissue. Consider thyroiditis Electronically authenticated by: JJ HI Date: 2022-04-28 09:05 Normal [facility] T3, TOTAL (TRIIODOTHYRONINE) on 04-09-2022 T3, TOTAL 167 ng/dL Normal 71-180 [facility] Comment on above: Performed By: #### B 12FOL, FETIBC #### [facility] [address] [place] [address] Dr. Benito Schwartz FREE T3on 04-08-2022 FREE T3 6.07 pg/mlL Critically high 2.18-3.98 [facility] Comment on above: Performed By: #### T SH, FT3, BMP #### [facility] [address] [place] [address] Dr. Benito Schwartz FREE T4on 04-08-2022 Free T4 [Mass/Vol] 2.62 ng/dL Critically high 0.76-1.46 [facility] Comment on above: Performed By: #### T SH, FT3, BMP #### [facility] [address] [place] [address] Dr. Benito Schwartz PROF CHEM 8 (BAS METB)on Anion gap [Moles/Vol] 13.5 mmol/L Normal [facility] Comment on above: Performed By: #### B 12FOL, FETIBC #### [facility] [address] [place] [address] Dr. Benito Schwartz Calcium [Mass/Vol] 9.9 mg/dL Normal 8.5-10.1 [facility] Comment on above: Performed By: #### B 12FOL, FETIBC #### [facility] [address] [address] [address] Benito Schwartz Chloride [Moles/Vol] 105 mmol/L Normal 98-107 [facility] Comment on above: Performed By: #### B 12FOL, FETIBC #### [facility] [address] [address] [address] Benito Schwartz CO2 [Moles/Vol] 26.5 mmol/L Normal 21.0-32.0 [facility] Comment on above: Performed By: #### B 12FOL, FETIBC #### [facility] [address] [place] [address] Dr. Benito Schwartz Creatinine [Mass/Vol] 2.33 mg/dL Critically high 0.70-1.30 [facility] Comment on above: Performed By: #### B 12FOL, FETIBC #### [facility] [address] [place] [address] Dr. Benito Schwartz EGFR-AF BAHAMIAN 33 mL/min/1.73m2 Critically low >=60 [facility] Comment on above: Performed By: #### B 12FOL, FETIBC #### [facility] [address] [place] [address] Dr. Benito Schwartz EGFR-NON AF BAHAMIAN 27 mL/min/1.73m2 Critically low >=60 [facility] Comment on above: Performed By: #### B 12FOL, FETIBC #### [facility] [address] [place] [address] Dr. Benito Schwartz Glucose [Mass/Vol] 104 mg/dL Normal 74-106 [facility] Comment on above: Performed By: #### B 12FOL, FETIBC #### [facility] [address] [place] [address] Dr. Benito Schwartz Potassium [Moles/Vol] 5.0 mmol/L Normal 3.5-5.1 [facility] Comment on above: Performed By: #### B 12FOL, FETIBC #### [facility] [address] [address] [address] Benito Schwartz Sodium [Moles/Vol] 140 mmol/L Normal 136-145 [facility] Comment on above: Performed By: #### B 12FOL, FETIBC #### [facility] [address] [place] [address] Dr. Benito Schwartz Urea nitrogen [Mass/Vol] 60.0 mg/dL Critically high 7.0-18.0 [facility] Comment on above: Performed By: #### B 12FOL, FETIBC #### [facility] [address] [place] [address] Dr. eBnito Schwartz Urea nitrogen/Creatinine [Mass ratio] 25.8 mg/mg Normal [facility] Comment on above: Performed By: #### B 12FOL, FETIBC #### [facility] [address] [place] [address] Dr. Benito Schwartz TSHon 04-08-2021 TSH Qn m[IU]/L Critically low 0.358-3.740 [facility] Comment on above: Performed By: #### T SH, FT3, BMP #### [facility] [address] [place] [address] Dr. Benito Schwartz BASIC METABOLIC PANELon 03-16 Calcium [Mass/Vol] 9.1 mg/dL Normal 8.6-10.3 [facility] Comment on above: Order Comment: No: D o not add to previous draw Performed By: #### 1 69, [id number] #### [facility] [address] [place] [address], [place] Chloride [Moles/Vol] 106 mmol/L Normal 98-107 [facility] Comment on above: Order Comment: No: D o not add to previous draw Performed By: #### 1 69, [id number] #### [facility] [address] [place] [address], [place] CO2 [Moles/Vol] 25 mmol/L Normal 21-31 [facility] Comment on above: Order Comment: No: D o not add to previous draw Performed By: #### 1 69, 42745 #### [facility] [address] [place] [address], [place] Creatinine [Mass/Vol] 2.12 mg/dL High 0.70-1.30 [facility] Comment on above: Order Comment: No: D o not add to previous draw Performed By: #### 1 69, [id number] #### [facility] [address] [place] [address], [facility] eGFR- 37 ml/min/1.73sq m Abnormal >60 [facility] Comment on above: Order Comment: No: D o not add to previous draw Result Comment: Calc ulation may not be valid for patients over 70 years Performed By: #### 1 69, [id number] #### [facility] [address] [place] [address], [facility] eGFR- non- 30 ml/min/1.73sq m Abnormal >60 [facility] Comment on above: Order Comment: No: D o not add to previous draw Result Comment: Calc ulation may not be valid for patients over 70 years Performed By: #### 1 69, [id number] #### [facility] [address] [place] [address], [place] Glucose [Mass/Vol] 93 mg/dL Normal 70-100 [facility] Comment on above: Order Comment: No: D o not add to previous draw Performed By: #### 1 69, 66549 #### [facility] [address] [place] [address], [place] Potassium [Moles/Vol] 3.9 mmol/L Normal 3.5-5.1 [facility] Comment on above: Order Comment: No: D o not add to previous draw Performed By: #### 1 69, 22016 #### [facility] [address] [place] [id number], [facility] Sodium [Moles/Vol] 141 mmol/L Normal 136-145 [facility] Comment on above: Order Comment: No: D o not add to previous draw Performed By: #### 1 0, [id number] #### [facility] [address] [place] [address], [facility] Urea nitrogen [Mass/Vol] 56 mg/dL High 7-25 [facility] Comment on above: Order Comment: No: D o not add to previous draw Performed By: #### 1 69, 10040 #### [facility] [address] [place] [address], [facility] CBC COMPLETE BLOOD COUNTon - Erythrocyte distribution width (RBC) [Ratio] 13.6 % Normal 11.5-15.0 [facility] Comment on above: Order Comment: No: D o not add to previous draw Performed By: #### 5 0103 #### [facility] [address] [place] [address], [facility] Hematocrit (Bld) [Volume fraction] 26.2 % Low 39.0-50.0 [facility] Comment on above: Order Comment: No: D o not add to previous draw Performed By: #### 5 0103 #### [facility] [address] [place] [address], [facility] Hemoglobin (Bld) [Mass/Vol] 8.7 g/dL Low 13.0-17.0 [facility] Comment on above: Order Comment: No: D o not add to previous draw Performed By: #### 5 0103 #### [facility] [address] [place] [address], [facility] MCH (RBC) [Entitic mass] 29.3 pg Normal 27.0-33.0 [facility] Comment on above: Order Comment: No: D o not add to previous draw Performed By: #### 5 0103 #### [facility] [address] MCHC (RBC) [Mass/Vol] 33.2 g/dL Normal 32.0-35.0 [facility] Comment on above: Order Comment: No: D o not add to previous draw Performed By: #### 5 0103 #### [facility] [address] [place] [id number], [facility] MCV (RBC) [Entitic vol] 88.2 fL Normal 82.0-98.0 T [facility] Comment on above: Order Comment: No: D o not add to previous draw Performed By: #### 5 0103 #### [facility] [address] [place] [address], [facility] Nucleated RBC/100 WBC (Bld) [Ratio] 0 % Normal 0-0 [facility] Comment on above: Order Comment: No: D o not add to previous draw Performed By: #### 5 0103 #### [facility] [address] [facility] [place] [address], [facility] PLAT CNT 190 10*3/uL Normal 150-400 [facility] Comment on above: Order Comment: No: D o not add to previous draw Performed By: #### 5 0103 #### [facility] [address] [facility] [place] [address], [facility] RBC (Bld) [#/Vol] 2.97 10*6/uL Low 4.20-5.70 [facility] Comment on above: Order Comment: No: D o not add to previous draw Performed By: #### 5 0103 #### [facility] [address] [facility] [place] [address], [facility] WBC (Bld) [#/Vol] 5.20 10*3/uL Normal 4.00-10.60 [facility] Comment on above: Order Comment: No: D o not add to previous draw Performed By: #### 5 0103 #### [facility] [address] [facility] [place] [address], [facility] MAGNESIUM BLOODon 04-02-2022 Magnesium [Mass/Vol] 2.2 mg/dL Normal 1.9-2.7 [facility] Comment on above: Order Comment: No: D o not add to previous draw Performed By: #### 1 0070, [id number] #### [facility] [address] [place] [address], [place] POC GLUCOSE LABon 04-02-2022 Glucose [Mass/Vol] 99 mg/dL Normal 70-100 [facility] Comment on above: Performed By: #### 5 0608 #### [facility] [address] [place] [address], [facility] BASIC METABOLIC PANELon 03-16 Calcium [Mass/Vol] 9.1 mg/dL Normal 8.6-10.3 [facility] Comment on above: Order Comment: No: D o not add to previous draw Performed By: #### 5 0608 #### [facility] [address] [place] [address], [place] Chloride [Moles/Vol] 106 mmol/L Normal 98-107 [facility] Comment on above: Order Comment: No: D o not add to previous draw Performed By: #### 5 0608 #### [facility] [address] [place] [address], [place] CO2 [Moles/Vol] 25 mmol/L Normal 21-31 [facility] Comment on above: Order Comment: No: D o not add to previous draw Performed By: #### 5 0608 #### [facility] [address] [place] [address], [place] Creatinine [Mass/Vol] 2.07 mg/dL High 0.70-1.30 [facility] Comment on above: Order Comment: No: D o not add to previous draw Performed By: #### 5 0608 #### [facility] [address] [place] [address], [place] eGFR- 38 ml/min/1.73sq m Abnormal >60 [facility] Comment on above: Order Comment: No: D o not add to previous draw Result Comment: Calc ulation may not be valid for patients over 70 years Performed By: #### 5 0608 #### [facility] [address] [place] [address], [place] eGFR- non- 31 ml/min/1.73sq m Abnormal >60 [facility] Comment on above: Order Comment: No: D o not add to previous draw Result Comment: Calc ulation may not be valid for patients over 70 years Performed By: #### 5 0608 #### [facility] [address] [place] [address], [place] Glucose [Mass/Vol] 94 mg/dL Normal 70-100 [facility] Comment on above: Order Comment: No: D o not add to previous draw Performed By: #### 5 0608 #### [facility] [address] [place] [address], [place] Potassium [Moles/Vol] 3.9 mmol/L Normal 3.5-5.1 [facility] Comment on above: Order Comment: No: D o not add to previous draw Performed By: #### 5 0608 #### [facility] [address] [place] [address], [place] Sodium [Moles/Vol] 144 mmol/L Normal 136-145 [facility] Comment on above: Order Comment: No: D o not add to previous draw Performed By: #### 5 0608 #### [facility] [address] [place] [address], [place] Urea nitrogen [Mass/Vol] 54 mg/dL High 7-25 [facility] Comment on above: Order Comment: No: D o not add to previous draw Performed By: #### 5 0608 #### [facility] [address] [place] [address], [place] CBC COMPLETE BLOOD COUNTon 0 04-01-2022 Erythrocyte distribution width (RBC) [Ratio] 13.5 % Normal 11.5-15.0 [facility] Comment on above: Order Comment: No: D o not add to previous draw Performed By: #### 5 0608 #### [facility] [address] [place] [address], [facility] Hematocrit (Bld) [Volume fraction] 27.5 % Low 39.0-50.0 [facility] Comment on above: Order Comment: No: D o not add to previous draw Performed By: #### 5 0608 #### [facility] [address] [place] [id number], [facility] Hemoglobin (Bld) [Mass/Vol] 8.9 g/dL Low 13.0-17.0 [facility] Comment on above: Order Comment: No: D o not add to previous draw Performed By: #### 5 0608 #### [facility] [address] [place] [address], [facility] MCH (RBC) [Entitic mass] 29.2 pg Normal 27.0-33.0 [facility] Comment on above: Order Comment: No: D o not add to previous draw Performed By: #### 5 0608 #### [facility] [address] [place] [address], [facility] MCHC (RBC) [Mass/Vol] 32.4 g/dL Normal 32.0-35.0 [facility] Comment on above: Order Comment: No: D o not add to previous draw Performed By: #### 5 0608 #### [facility] [address] [place] [address], [place] MCV (RBC) [Entitic vol] 90.2 fL Normal 82.0-98.0 [facility] Comment on above: Order Comment: No: D o not add to previous draw Performed By: #### 5 0608 #### [facility] [address] [place] [id number], [facility] Nucleated RBC/100 WBC (Bld) [Ratio] 0 % Normal 0-0 [facility] Comment on above: Order Comment: No: D o not add to previous draw Performed By: #### 5 0608 #### [facility] [address] [place] [address], [facility] PLAT CNT 213 10*3/uL Normal 150-400 [facility] Comment on above: Order Comment: No: D o not add to previous draw Performed By: #### 5 0608 #### [facility] [address] [address], [facility] RBC (Bld) [#/Vol] 3.05 10*6/uL Low 4.20-5.70 [facility] Comment on above: Order Comment: No: D o not add to previous draw Performed By: #### 5 0608 #### [facility] [address] [place] [address], [facility] WBC (Bld) [#/Vol] 6.02 10*3/uL Normal 4.00-10.60 [facility] Comment on above: Order Comment: No: D o not add to previous draw Performed By: #### 5 0608 #### [facility] [address] Cardiovascular Lab Reporton 04-01-2022 Cardiovascular Lab Report [facility]: [id number] Physician: Sriram Rick, Department of M.D. Medicine Service Date: 03/31/2022 Division of Birthdate: 1940 Cardiology Room #: 3AB [id number] Adult Cardiovascular Services [facility] [address] [place] [address] Cardiovascular Laboratory Report FINAL IMPRESSIONS: 1. Moderately elevated right-sided filling pressures. 2. Low pulmonary capillary wedge pressure. 3. Elevated transpulmonary gradient along with the low wedge pressure consistent with pre-capillary pulmonary hypertension. 4. Normal cardiac output/cardiac index. 5. Resting hypoxemia. RECOMMENDATIONS: 1. Consider alternate etiologies for the patient's symptomatology namely pulmonary. 2. Will proceed with gentle IV hydration given low filling pressures and elevated serum creatinine suggestive of dehydration and prerenal azotemia. 3. Aggressive cardiovascular risk factor modification. 4. Further recommendations deferred to the inpatient services. PROCEDURES: Ultrasound-guided access of the right internal jugular vein, right heart catheterization. Methods after risks, benefits, and alternatives were explained, written informed consent was obtained. The patient was prepped and draped in the usual sterile fashion over the right neck. Using 1% lidocaine solution, local infiltration anesthesia was achieved. Using a modified Seldinger technique, a micropuncture kit and under ultrasound guidance access of the right internal jugular vein was obtained. A 6-Kyrgyz 11 cm sheath was inserted without difficulty. A Douglas catheter was used for right heart catheterization measuring pressures in the right atrium, right ventricle, pulmonary artery, and pulmonary capillary wedge positions. Oxygen saturations were obtained and a cardiac output/cardiac index was calculated using the modified Satish principle. The Douglas catheter was removed. At this juncture, it was elected to conclude the procedure. The jugular sheath was removed with application of manual pressure to achieve optimal hemostasis. Overall, the patient tolerated the procedure well. There were no overt complications. He was to be transferred to his hospital room in stable condition. FINDINGS: Hemodynamics. AO 137/53 (113). RA mean of 3. RV 50/1, 6. PA 50/8 (25). PCWP mean of 7. TPG 18. AO sat 90%/PA sat 65%. Cardiac output 9.39/cardiac index 4.5. INDICATIONS: Heart failure with reduced ejection fraction, exertional shortness of breath. Electronically Signed by: Sriram Rick M.D. 04/25/2022 02:07 P Sriram Rick M.D. Date Dict: 03/31/2022/02:33 P/Sriram Rick M.D. Date Trans: 04/01/2022 02:03 Jay Jay/hans [id number] cc: Arnie Linda D.O. [address] [place] [address], [address] [facility] [id number] Normal [facility] HEMOGLOBIN A1Con 04-01-2022 Glucose [Moles/Vol] 137 mmol/L Normal [facility] Comment on above: Order Comment: If no t done in EDNo: Do not add to previous draw Performed By: #### 5 0103 #### [facility] [address] [place] [address], [place] HbA1c (Bld) [Mass fraction] 6.4 % High 4.0-6.0 [facility] Comment on above: Order Comment: If no t done in EDNo: Do not add to previous draw Performed By: #### 5 0103 #### [facility] [address] [place] [address], [place] MAGNESIUM BLOODon 04-01-2022 Magnesium [Mass/Vol] 2.2 mg/dL Normal 1.9-2.7 [facility] Comment on above: Order Comment: No: D o not add to previous draw Performed By: #### 5 0608 #### [facility] [address] [place] [address], [place] POC GLUCOSE LABon 04-01-2022 Glucose [Mass/Vol] 114 mg/dL High 70-100 [facility] Comment on above: Performed By: #### 5 0103 #### [facility] [address] [place] [address], [place] Glucose [Mass/Vol] 117 mg/dL High 70-100 [facility] Comment on above: Performed By: #### 5 0608 #### [facility] [address] [place] [address], [place] Glucose [Mass/Vol] 139 mg/dL High 70-100 [facility] Comment on above: Performed By: #### 5 0608 #### [facility] [address] [place] [address], [place] Glucose [Mass/Vol] 98 mg/dL Normal 70-100 [facility] Comment on above: Performed By: #### 5 0608 #### [facility] [address] [place] [address], [facility] BASIC METABOLIC PANELon - Calcium [Mass/Vol] 9.1 mg/dL Normal 8.6-10.3 [facility] Comment on above: Order Comment: No: D o not add to previous draw Performed By: #### 4 4396, 74109, 39233, 93418, 17863 #### [facility] [address] [place] [address], [facility] Chloride [Moles/Vol] 104 mmol/L Normal 98-107 [facility] Comment on above: Order Comment: No: D o not add to previous draw Performed By: #### 4 4396, 40713, 01962, 61238, 28000 #### [facility] [address] [place] [address], [facility] CO2 [Moles/Vol] 27 mmol/L Normal 21-31 [facility] Comment on above: Order Comment: No: D o not add to previous draw Performed By: #### 4 4396, 82364, 22887, 72802, 97235 #### [facility] [address] [place] [address], [facility] Creatinine [Mass/Vol] 2.59 mg/dL High 0.70-1.30 [facility] Comment on above: Order Comment: No: D o not add to previous draw Performed By: #### 4 4396, 02729, 11467, 41315, 75436 #### [facility] [address] [place] [address], [facility] eGFR- 29 ml/min/1.73sq m Abnormal >60 [facility] Comment on above: Order Comment: No: D o not add to previous draw Result Comment: Calc ulation may not be valid for patients over 70 years Performed By: #### 4 4396, 90808, 18416, 72080, 71411 #### [facility] [address] [place] [address], [place] eGFR- non- 24 ml/min/1.73sq m Abnormal >60 [facility] Comment on above: Order Comment: No: D o not add to previous draw Result Comment: Calc ulation may not be valid for patients over 70 years Performed By: #### 4 4396, 11469, 78692, 68068, 29024 #### [facility] [address] [place] [address], [place] Glucose [Mass/Vol] 90 mg/dL Normal 70-100 [facility] Comment on above: Order Comment: No: D o not add to previous draw Performed By: #### 4 4396, 96452, 22568, 20314, 64033 #### [facility] [address] [place] [address], [place] Potassium [Moles/Vol] 4.2 mmol/L Normal 3.5-5.1 [facility] Comment on above: Order Comment: No: D o not add to previous draw Performed By: #### 4 4396, 79701, 44730, 21884, 42009 #### [facility] [address] [place] [address], [place] Sodium [Moles/Vol] 141 mmol/L Normal 136-145 [facility] Comment on above: Order Comment: No: D o not add to previous draw Performed By: #### 4 4396, 58963, 04887, 32679, 29803 #### [facility] [address] [place] [address], [place] Urea nitrogen [Mass/Vol] 55 mg/dL High 7-25 [facility] Comment on above: Order Comment: No: D o not add to previous draw Performed By: #### 4 4396, 69138, 88211, 93184, 76284 #### [facility] [address] [place] [address], [place] CBC COMPLETE BLOOD COUNTon 0 - Erythrocyte distribution width (RBC) [Ratio] 13.6 % Normal 11.5-15.0 [facility] Comment on above: Order Comment: No: D o not add to previous draw Performed By: #### 5 0608 #### [facility] [address] [place] [address], [facility] Hematocrit (Bld) [Volume fraction] 27.1 % Low 39.0-50.0 [facility] Comment on above: Order Comment: No: D o not add to previous draw Performed By: #### 5 0608 #### [facility] [address] [place] [address], [facility] Hemoglobin (Bld) [Mass/Vol] 8.7 g/dL Low 13.0-17.0 [facility] Comment on above: Order Comment: No: D o not add to previous draw Performed By: #### 5 0608 #### [facility] [address] [place] [id number], [facility] MCH (RBC) [Entitic mass] 28.8 pg Normal 27.0-33.0 [facility] Comment on above: Order Comment: No: D o not add to previous draw Performed By: #### 5 0608 #### [facility] [address] [place] [address], [facility] MCHC (RBC) [Mass/Vol] 32.1 g/dL Normal 32.0-35.0 [facility] Comment on above: Order Comment: No: D o not add to previous draw Performed By: #### 5 0608 #### [facility] [address] [place] [id number], [facility] MCV (RBC) [Entitic vol] 89.7 fL Normal 82.0-98.0 [facility] Comment on above: Order Comment: No: D o not add to previous draw Performed By: #### 5 0608 #### [facility] [address] [facility] [place] [address], [facility] Nucleated RBC/100 WBC (Bld) [Ratio] 0 % Normal 0-0 [facility] Comment on above: Order Comment: No: D o not add to previous draw Performed By: #### 5 0608 #### [facility] [address] [place] [id number], [facility] PLAT CNT 184 10*3/uL Normal 150-400 [facility] Comment on above: Order Comment: No: D o not add to previous draw Performed By: #### 5 0608 #### [facility] [address] [facility] [place] [address], [facility] RBC (Bld) [#/Vol] 3.02 10*6/uL Low 4.20-5.70 [facility] Comment on above: Order Comment: No: D o not add to previous draw Performed By: #### 5 0608 #### [facility] [address] [facility] [place] [address], [facility] WBC (Bld) [#/Vol] 5.93 10*3/uL Normal 4.00-10.60 [facility] Comment on above: Order Comment: No: D o not add to previous draw Performed By: #### 5 0608 #### [facility] [address] [facility] [place] [address], [facility] FREE T4on 03-31-2022 Free T4 [Mass/Vol] 4.55 ng/dL High 0.71-1.85 [facility] Comment on above: Performed By: #### 5 0103 #### [facility] [address] [facility] [place] [address], [facility] MAGNESIUM BLOODon 03-31-2022 Magnesium [Mass/Vol] 2.3 mg/dL Normal 1.9-2.7 [facility] Comment on above: Order Comment: No: D o not add to previous draw Performed By: #### 4 4396, 31889, 78736, 05927, 19327 #### [facility] [address] [place] [address], [facility] PHOSPHORUS BLOODon 2 Phosphate [Mass/Vol] 5.4 mg/dL High 2.5-5.0 [facility] Comment on above: Order Comment: No: D o not add to previous draw Performed By: #### 4 4396, 60919, 25385, 88198, 82444 #### [facility] [address] [facility] [place], [place] [address] [place] [address] POC GLUCOSE LABon 03-31-2022 Glucose [Mass/Vol] 161 mg/dL High 70-100 [facility] Comment on above: Performed By: #### 5 0608 #### [facility] [address] [facility] [place] [address], [facility] Glucose [Mass/Vol] 108 mg/dL High 70-100 [facility] Comment on above: Performed By: #### 5 0608 #### [facility] [address] [facility]. [address] POC SARS COV2 ANTIGEN NEGATI VEon 03-31-2022 POC SARS COV2 ANTIGEN NEG Negative Normal NEGATIVE [facility] Comment on above: Result Comment: Nega tive results should be treated as presumptive and confirmation with a molecular assay, if necessary, for patient management, may be performed. Negative results do not rule out SARS-CoV-2 infection and not should be used as the sole basis for treatment or patient management decisions, including infection control decisions. Negative results should be considered in the context of a patient's recent exposures, history, and the presence of clinical signs and symptoms consistent with COVID-19. The Clarity COVID-19 Antigen Rapid Test Cassette is a rapid chromatographic immunoassay intended for the qualitative detection of the nucleocapsid protein antigen from SARS-CoV-2 in direct nasopharyngeal swab ([employer]) specimens from individuals who are suspected of COVID-19 by their healthcare provider within the first six days of symptom onset. Testing is limited to laboratories certified under the Clinical Laboratory Improvement Amendments of 1988 (CLIA), 42 U.S.C. ???263a, that meet the requirements to perform moderate complexity, high complexity, or waived tests. This test is authorized for use at the Point of Care (POC), i.e., in patient care settings operating under a CLIA Certificate of Waiver, Certificate of Compliance, or Certificate of Accreditation. Performed By: #### 5 0103 #### [facility] [address] [place] [address], [facility] TSH3on 03-31-2022 TSH 3RD GENERATION <0.01 Critically low 0.34-5.60 Th e [facility] Comment on above: Performed By: #### 4 4396, 77943, 45979, 51398, 18473 #### [facility] [address] [place] [address], [facility] BASIC METABOLIC PANELon 03-16 Calcium [Mass/Vol] 9.8 mg/dL Normal 8.6-10.3 [facility] Comment on above: Order Comment: No: D o not add to previous draw Performed By: #### 5 0103 #### [facility] [address] [place] [address], [facility] Chloride [Moles/Vol] 103 mmol/L Normal 98-107 [facility] Comment on above: Order Comment: No: D o not add to previous draw Performed By: #### 5 0103 #### [facility] [address] [place] [address], [place] CO2 [Moles/Vol] 29 mmol/L Normal 21-31 [facility] Comment on above: Order Comment: No: D o not add to previous draw Performed By: #### 5 0103 #### [facility] [address] [place] [address], [facility] Creatinine [Mass/Vol] 2.60 mg/dL High 0.70-1.30 [facility] Comment on above: Order Comment: No: D o not add to previous draw Performed By: #### 5 0103 #### [facility] [address] [place] [address], [facility] eGFR- 29 ml/min/1.73sq m Abnormal >60 [facility] Comment on above: Order Comment: No: D o not add to previous draw Result Comment: Calc ulation may not be valid for patients over 70 years Performed By: #### 5 0103 #### [facility] [address] [place] [address], [place] eGFR- non- 24 ml/min/1.73sq m Abnormal >60 [facility] Comment on above: Order Comment: No: D o not add to previous draw Result Comment: Calc ulation may not be valid for patients over 70 years Performed By: #### 5 0103 #### [facility] [address] [place] [address], [place] Glucose [Mass/Vol] 109 mg/dL High 70-100 [facility] Comment on above: Order Comment: No: D o not add to previous draw Performed By: #### 5 0103 #### [facility] [address] [place] [address], [place] Potassium [Moles/Vol] 4.0 mmol/L Normal 3.5-5.1 [facility] Comment on above: Order Comment: No: D o not add to previous draw Performed By: #### 5 0103 #### [facility] [address] [place] [address], [place] Sodium [Moles/Vol] 141 mmol/L Normal 136-145 [facility] Comment on above: Order Comment: No: D o not add to previous draw Performed By: #### 5 0103 #### [facility] [address] [place] [address], [place] Urea nitrogen [Mass/Vol] 55 mg/dL High 7-25 [facility] Comment on above: Order Comment: No: D o not add to previous draw Performed By: #### 5 0103 #### [facility] [address] [place] [address], [place] CBC W/DIFFon 06-15-2022 ABS IMM GRANS 0.0 10*3/uL Normal 0.0-0.2 [facility] Comment on above: Performed By: #### 5 0103 #### [facility] [address] [facility] [place] [address], [facility] ABS NEUTROPHILS 4.1 10*3/uL Normal 1.6-7.6 [facility] Comment on above: Performed By: #### 5 0103 #### [facility] [address] [place] [address], [facility] Basophils (Bld) [#/Vol] 0.0 10*3/uL Normal 0.0-0.2 [facility] Comment on above: Performed By: #### 5 0103 #### [facility] [address] [place] [address], [facility] Basophils/100 WBC (Bld) 0.3 % Normal 0.0-1.0 T [facility] Comment on above: Performed By: #### 5 0103 #### [facility] [address] [place] [address], [facility] Eosinophils (Bld) [#/Vol] 0.3 10*3/uL Normal 0.0-0.5 [facility] Comment on above: Performed By: #### 5 0103 #### [facility] [address] [facility] [place] [address], [facility] Eosinophils/100 WBC (Bld) 5.3 % Normal 0.0-6.0 [facility] Comment on above: Performed By: #### 5 0103 #### [facility] [address] [place] [address], [facility] Erythrocyte distribution width (RBC) [Ratio] 13.7 % Normal 11.5-15.0 [facility] Comment on above: Performed By: #### 5 0103 #### [facility] [address] [place] [address], [facility] Hematocrit (Bld) [Volume fraction] 30.2 % Low 39.0-50.0 [facility] Comment on above: Performed By: #### 5 0103 #### [facility] [address] [facility] [place] [address], [facility] Hemoglobin (Bld) [Mass/Vol] 9.8 g/dL Low 13.0-17.0 [facility] Comment on above: Performed By: #### 5 0103 #### [facility] [address] [facility] [place] [address], [facility] IMMATURE GRANS 0.3 % Normal 0.0-1.0 [facility] Comment on above: Performed By: #### 5 3 #### [facility] [address] [facility]. [address] Lymphocytes (Bld) [#/Vol] 1.1 10*3/uL Low 1.2-4.0 [facility] Comment on above: Performed By: #### 5 0103 #### [facility] [address] Lymphocytes/100 WBC (Bld) 17.9 % Low 20.0-45.0 [facility] Comment on above: Performed By: #### 5 3 #### [facility] [address] [facility]. [address] MCH (RBC) [Entitic mass] 29.3 pg Normal 27.0-33.0 [facility] Comment on above: Performed By: #### 5 0103 #### [facility] [address] [facility] [place] [address], [facility] MCHC (RBC) [Mass/Vol] 32.5 g/dL Normal 32.0-35.0 [facility] Comment on above: Performed By: #### 5 3 #### [facility] [address] [facility] [place] [address], [facility] MCV (RBC) [Entitic vol] 90.4 fL Normal 82.0-98.0 T [facility] Comment on above: Performed By: #### 5 0103 #### [facility] [address] [facility] [place] [address], [facility] Monocytes (Bld) [#/Vol] 0.7 10*3/uL Normal 0.1-1.0 [facility] Comment on above: Performed By: #### 5 0103 #### [facility] [address] [facility] [place] [address], [facility] MONOS 11.6 % Normal 5.0-12.0 [facility] Comment on above: Performed By: #### 5 0103 #### [facility] [address] [facility] [place] [address], [facility] Neutrophils/100 WBC (Bld) 64.6 % Normal 40.0-72.0 [facility] Comment on above: Performed By: #### 5 0103 #### [facility] [address] [facility] [place] [address], [facility] Nucleated RBC/100 WBC (Bld) [Ratio] 0 % Normal 0-0 [facility] Comment on above: Performed By: #### 5 0103 #### [facility] [address] [facility] [place] [address], [facility] PLAT CNT 215 10*3/uL Normal 150-400 [facility] Comment on above: Performed By: #### 5 0103 #### [facility] [address] [facility] [place] [address], [facility] RBC (Bld) [#/Vol] 3.34 10*6/uL Low 4.20-5.70 [facility] Comment on above: Performed By: #### 5 3 #### [facility] [address] [place] [address], [facility] WBC (Bld) [#/Vol] 6.38 10*3/uL Normal 4.00-10.60 [facility] Comment on above: Performed By: #### 5 0103 #### [facility] [address] [place] [address], [facility] MAGNESIUM BLOODon 03-30-2022 Magnesium [Mass/Vol] 2.3 mg/dL Normal 1.9-2.7 [facility] Comment on above: Order Comment: No: D o not add to previous draw Performed By: #### 5 0103 #### [facility] [address] [place] [address], [facility] TROPONIN-Ion 03-30-2022 Troponin I.cardiac [Mass/Vol] 0.04 ng/mL Normal 0.00-0.04 [facility] Comment on above: Order Comment: No: D o not add to previous draw Result Comment: REFE RENCE RANGES: 0.00 - 0.04 ng/ml NORMAL 0.05 - 0.50 ng/ml INDETERMINATE > 0.50 ng/ml CONSISTENT WITH AN M.I. Performed By: #### 5 0103 #### [facility] [address] [facility] [place] [address], [facility] BNPon 03-25-2022 Natriuretic peptide B (Bld) [Mass/Vol] 7410.0 pg/mL Critically high <=1,800.0 [facility] Comment on above: Performed By: #### F T4 #### [facility] [address] [place] [address] Dr. Benito Schwartz PROF CHEM 8 (BAS METB)on Anion gap [Moles/Vol] 14.5 mmol/L Normal [facility] Comment on above: Performed By: #### F T4 #### [facility] [address] [place] [address] Dr. Benito Schwartz Calcium [Mass/Vol] 9.6 mg/dL Normal 8.5-10.1 [facility] Comment on above: Performed By: #### F T4 #### [facility] [address] [place] [address] Dr. Benito Schwartz Chloride [Moles/Vol] 105 mmol/L Normal 98-107 [facility] Comment on above: Performed By: #### F T4 #### [facility] [address] [place] [address] Dr. Benito Schwartz CO2 [Moles/Vol] 27.6 mmol/L Normal 21.0-32.0 [facility] Comment on above: Performed By: #### F T4 #### [facility] [address] [place] [address] [address] Benito Schwartz Creatinine [Mass/Vol] 2.48 mg/dL Critically high 0.70-1.30 [facility] Comment on above: Performed By: #### F T4 #### [facility] [address] [place] [address] Dr. Benito Schwartz EGFR-AF BAHAMIAN 31 mL/min/1.73m2 Critically low >=60 [facility] Comment on above: Performed By: #### F T4 #### [facility] [address] [place] [address] Dr. Benito Schwartz EGFR-NON AF BAHAMIAN 25 mL/min/1.73m2 Critically low >=60 [facility] Comment on above: Performed By: #### F T4 #### [facility] [address] [place] [address] Dr. Benito Schwartz Glucose [Mass/Vol] 116 mg/dL Critically high 74-106 [facility] Comment on above: Performed By: #### F T4 #### [facility] [address] [place] [address] Dr. Benito Schwartz Potassium [Moles/Vol] 4.1 mmol/L Normal 3.5-5.1 [facility] Comment on above: Performed By: #### F T4 #### [facility] [address] [place] [address] Dr. Benito Schwartz Sodium [Moles/Vol] 143 mmol/L Normal 136-145 [facility] Comment on above: Performed By: #### F T4 #### [facility] [address] [place] [address] Dr. Benito Schwartz Urea nitrogen [Mass/Vol] 56.0 mg/dL Critically high 7.0-18.0 [facility] Comment on above: Performed By: #### F T4 #### [facility] [address] [place] [address] Dr. Benito Schwartz Urea nitrogen/Creatinine [Mass ratio] 22.6 mg/mg Normal [facility] Comment on above: Performed By: #### F T4 #### [facility] [address] [place] [address] Dr. Benito Schwartz CBC AUTO DIFFon 03-07-2022 BASO # 0.0 103/ul Normal 0.0-0.1 [facility] Comment on above: Performed By: #### V ITAD #### [facility] [address] [place] [address] Dr. Benito Schwartz Basophils/100 WBC (Bld) 0.3 % Normal 0.2-2.0 [facility] Comment on above: Performed By: #### V ITAD #### [facility] [address] [place] [address] Dr. Benito Schwartz EO # 0.1 103/ul Normal 0.0-0.7 [facility] Comment on above: Performed By: #### V ITAD #### [facility] [address] [place] [address] Dr. Benito Schwartz Eosinophils/100 WBC (Bld) 2.4 % Normal 0.9-7.0 [facility] Comment on above: Performed By: #### V ITAD #### [facility] [address] [place] [address] Dr. Benito Schwartz Erythrocyte distribution width (RBC) [Ratio] 13.4 % Normal 11.0-15.0 [facility] Comment on above: Performed By: #### V ITAD #### [facility] [address] [place] [address] Dr. Benito Schwartz Hematocrit (Bld) [Volume fraction] 27.7 % Critically low 42.0-54.0 [facility] Comment on above: Performed By: #### V ITAD #### [facility] [address] [place] [address] Dr. Benito Schwartz Hemoglobin (Bld) [Mass/Vol] 8.8 g/dL Critically low 14.0-18.0 [facility] Comment on above: Performed By: #### V ITAD #### [facility] [address] [place] [address] Dr. Benito Schwartz IG # 0.02 10e3/ul Normal 0.00-0.03 [facility] Comment on above: Performed By: #### V ITAD #### [facility] [address] [place] [address] Dr. Benito Schwartz IG % 0.3 % Normal 0.0-0.5 [facility] Comment on above: Performed By: #### V ITAD #### [facility] [address] [place] [address] Dr. Benito Schwartz LYMPH # 1.1 103/ul Critically low 1.2-3.8 [facility] Comment on above: Performed By: #### V ITAD #### [facility] [address] [place] [address] Dr. Benito Schwartz Lymphocytes/100 WBC (Bld) 17.9 % Critically low 20.5-60.0 [facility] Comment on above: Performed By: #### V ITAD #### [facility] [address] [place] [address] Dr. Benito Schwartz MANUAL DIFF REQ NO Normal [facility] Comment on above: Performed By: #### V ITAD #### [facility] [address] [place] [address] Dr. Benito Schwartz MCH (RBC) [Entitic mass] 29.0 pg Normal 25.9-34.0 [facility] Comment on above: Performed By: #### V ITAD #### [facility] [address] [place] [address] Dr. Benito Schwartz MCHC (RBC) [Mass/Vol] 31.8 g/dL Normal 29.9-35.2 [facility] Comment on above: Performed By: #### V ITAD #### [facility] [address] [place] [address] Dr. Benito Schwartz MCV (RBC) [Entitic vol] 91.4 fL Normal 80.0-94.0 [facility] Comment on above: Performed By: #### V ITAD #### [facility] [address] [place] [address] Dr. Benito Schwartz MONO # 0.9 103/ul Critically high 0.3-0.8 [facility] Comment on above: Performed By: #### V ITAD #### [facility] [address] [place] [address] Dr. Benito Schwartz Monocytes/100 WBC (Bld) 15.3 % Critically high 1.7-12. 0 [facility] Comment on above: Performed By: #### V ITAD #### [facility] [address] [place] [address] Dr. Benito Schwartz NEUT # 3.7 103/ul Normal 1.4-6.5 [facility] Comment on above: Performed By: #### V ITAD #### [facility] [address] [place] [address] Dr. Benito Schwartz Neutrophils/100 WBC (Bld) 63.8 % Normal 43.0-75.0 [facility] Comment on above: Performed By: #### V ITAD #### [facility] [address] [place] [address] Dr. Bneito Schwartz Platelet mean volume (Bld) [Entitic vol] 9.8 fL Normal 9.5-13.5 [facility] Comment on above: Performed By: #### V ITAD #### [facility] [address] [place] [address] Dr. Benito Schwartz PLT 212 103/ul Normal 150-450 [facility] Comment on above: Performed By: #### V ITAD #### [facility] [address] [place], [place] [id number] Dr. Benito Schwartz RBC 3.03 106/ul Critically low 4.70-6.10 [facility] Comment on above: Performed By: #### V ITAD #### [facility] [address] [place] [address] Dr. Benito Schwartz WBC 5.9 103/ul Normal 4.0-11.0 [facility] Comment on above: Performed By: #### V ITAD #### [facility] [id number] [address] Benito Schwartz ECHOCARDIO M/2D COMPLETEon 0 03-07-2022 ECHOCARDIO M/2D COMPLETE Patient: NAS REN Exam Date: 03/07/2022 : 1940 Gender:M Ordering : DR RUPINDER GRIGSBY . Admission #: [id number] Family : DR ARNIE LINDA D.O. Order #: [id number] CLICK HERE TO VIEW EXAM ECHOCARDIOGRAM REPORT PROCEDURE: CARDIO PULMONARY ECHOCARDIO M/2D COMP INDICATIONS: CHF, elevated BNP, pacemaker, COPD COMPARISON: None. DESCRIPTION: COMPLETE ECHOCARDIOGRAM Real-time transthoracic echocardiography with 2D, M-mode, spectral and color flow Doppler performed. QUALITY: Technical quality was good. LEFT VENTRICLE: Moderate dilatation. Moderate concentric left ventricular hypertrophy. LV EF: Global left ventricular systolic function moderately reduced; visually estimated ejection fraction is 30 to 35%. Abnormal septal motion may be related to underlying bundle branch block. DIASTOLIC: Grade II diastolic dysfunction. ATRIAL SEPTUM: Visually appears intact. LEFT ATRIUM: Mild dilatation. RIGHT ATRIUM: Mild dilatation. RIGHT VENTRICLE: Mild dilatation. Normal right ventricular systolic function. Pacer wire present. TRICUSPID VALVE: Normal mobility and thickness. Moderate regurgitation. Doppler studies reveal moderately (45-60) elevated right sided pressures. RVSP 57 mmHg MITRAL VALVE: Mildly thickened with normal mobility. There is no mitral annular calcification. Mild mitral regurgitation. AORTIC VALVE: Normal trileaflet appearance. Thickened aortic valve. Normal leaflet mobility. No evidence of aortic valve stenosis. No aortic regurgitation. AORTIC ROOT: Normal diameter and appearance. PULMONIC VALVE: Normal thickness and mobility. No stenosis. No regurgitation. PERICARDIUM: No evidence of pericardial effusion. IVC: Collapses with inspirations. IVC is normal in size. CONCLUSION: Global left ventricular systolic function is moderately reduced; visually estimated ejection fraction is 30 to 35%. Abnormal septal motion. Moderate dilation of the left ventricle. Moderate left ventricular hypertrophy. Grade 2 diastolic dysfunction. Biatrial enlargement. The right ventricle is mildly dilated with normal function. Moderate tricuspid regurgitation. Moderately elevated right-sided pressures. Mild mitral regurgitation. Adult Echocardiography Procedure Report Left Ventricle LVEDD (3.7 - 5.6 cm): 6.31 cm LVESD (2.2 - 4.0 cm): 5.27 cm LVIVS thickness (0.6 - 1.2 cm): 1.05 cm LVPW thickness (0.5 - 1.0 cm): 1.29 cm e': 8.22 cm/s E - e': 8.40 LVOT Area (cm2): 4.91 cm2 LVOT Diameter 2.50 cm Left Ventricular Ejection Fraction: 33.70 % Left Atrium LA Volume Index (2D A2C): 35.70 ml/m2 Left Atrium Systolic Dimension: 4.20 cm Left Atrium Systolic Area(A2C): 23.80 cm2 Left Atrium Systolic Area(A4C): 23.30 cm2 Left Atrium Systolic Volume(A2C): 12596 mm3 Left Atrium Systolic Volume(A4C): 42707 mm3 Mitral Valve MV E to A Ratio: 0.70 Mitral Valve A-Wave Peak Velocity: 95.30 cm/s Mitral Valve E-Wave Peak Velocity: 69.10 cm/s Deceleration Time: 309 ms Right Ventricle Aorta AO Root Diam: 3.60 cm Aortic Valve AoV Area (Peak Ezequiel): 2.77 cm2 Peak Velocity(Antegrade Flow): 197.00 cm/s Peak Gradient(Antegrade Flow): 16 mm[Hg] Tricuspid Valve Peak Velocity (Regurgitant Flow): 364.00 cm/s Pulmonic Valve Peak Velocity: 114.00 cm/s Peak Gradient: 5 mm[Hg] Right Atrium Dictated by: Sriram Rick M.D. on 03/08/2022 at 11:12 Approved by: Sriram Rick M.D. on 03/08/2022 at 11:16 Normal [facility] OCC BLD IMMUNO SCREENon 02-14 OCCULT BLOOD Negative Normal NEGATIVE [facility] Comment on above: Performed By: #### V ITAD #### [facility] [address] [place] [address] Dr. Benito Schwartz POINT OF CARE GLUCOSEon 02-14 Glucose [Mass/Vol] 124 mg/dL Critically high 74-106 [facility] Comment on above: Performed By: #### B 12FOL, FETIBC #### [facility] [address] [address] [address] Benito Schwartz PROF CHEM 8 (BAS METB)on Anion gap [Moles/Vol] 13.1 mmol/L Normal Th [facility] Comment on above: Performed By: #### B 12FOL, FETIBC #### [facility] [address] [address] [address] Benito Schwartz Calcium [Mass/Vol] 9.2 mg/dL Normal 8.5-10.1 [facility] Comment on above: Performed By: #### B 12FOL, FETIBC #### [facility] [address] [address] [address] Benito Schwartz Chloride [Moles/Vol] 105 mmol/L Normal 98-107 [facility] Comment on above: Performed By: #### B 12FOL, FETIBC #### [facility] [address] [place] [address] Dr. Benito Schwartz CO2 [Moles/Vol] 28.6 mmol/L Normal 21.0-32.0 [facility] Comment on above: Performed By: #### B 12FOL, FETIBC #### [facility] [address] [place] [address] Dr. Benito Schwartz Creatinine [Mass/Vol] 2.22 mg/dL Critically high 0.70-1.30 [facility] Comment on above: Performed By: #### B 12FOL, FETIBC #### [facility] [address] [address] [address] Benito Schwartz EGFR-AF BAHAMIAN 35 mL/min/1.73m2 Critically low >=60 [facility] Comment on above: Performed By: #### B 12FOL, FETIBC #### [facility] [address] [place] [address] Dr. Benito Schwartz EGFR-NON AF BAHAMIAN 29 mL/min/1.73m2 Critically low >=60 [facility] Comment on above: Performed By: #### B 12FOL, FETIBC #### [facility] [address] [address] [address] Benito Schwartz Glucose [Mass/Vol] 110 mg/dL Critically high 74-106 [facility] Comment on above: Performed By: #### B 12FOL, FETIBC #### [facility] [address] [place] [address] Dr. Benito Schwartz Potassium [Moles/Vol] 3.7 mmol/L Normal 3.5-5.1 [facility] Comment on above: Performed By: #### B 12FOL, FETIBC #### [facility] [address] [place] [address] Dr. Benito Schwartz Sodium [Moles/Vol] 143 mmol/L Normal 136-145 [facility] Comment on above: Performed By: #### B 12FOL, FETIBC #### [facility] [address] [place] [address] Dr. Benito Schwartz Urea nitrogen [Mass/Vol] 66.0 mg/dL Critically high 7.0-18.0 [facility] Comment on above: Performed By: #### B 12FOL, FETIBC #### [facility] [address] [place] [address] Dr. Benito Schwartz Urea nitrogen/Creatinine [Mass ratio] 29.7 mg/mg Normal [facility] Comment on above: Performed By: #### B 12FOL, FETIBC #### [facility] [address] [place] [address] Dr. Benito Schwartz CBC AUTO DIFFon 03-06-2022 BASO # 0.0 103/ul Normal 0.0-0.1 [facility] Comment on above: Performed By: #### B 12FOL, FETIBC #### [facility] [address] [place] [address] Dr. Benito Schwartz Basophils/100 WBC (Bld) 0.2 % Normal 0.2-2.0 [facility] Comment on above: Performed By: #### B 12FOL, FETIBC #### [facility] [address] [place] [address] Dr. Benito Schwartz EO # 0.1 103/ul Normal 0.0-0.7 [facility] Comment on above: Performed By: #### B 12FOL, FETIBC #### [facility] [address] [place] [address] Dr. Benito Schwartz Eosinophils/100 WBC (Bld) 2.4 % Normal 0.9-7.0 [facility] Comment on above: Performed By: #### B 12FOL, FETIBC #### [facility] [address] [place] [address] Dr. Benito Schwartz Erythrocyte distribution width (RBC) [Ratio] 13.8 % Normal 11.0-15.0 [facility] Comment on above: Performed By: #### B 12FOL, FETIBC #### [facility] [address] [place] [address] Dr. Benito Schwartz Hematocrit (Bld) [Volume fraction] 27.7 % Critically low 42.0-54.0 [facility] Comment on above: Performed By: #### B 12FOL, FETIBC #### [facility] [address] [place] [address] Dr. Benito Schwartz Hemoglobin (Bld) [Mass/Vol] 8.7 g/dL Critically low 14.0-18.0 [facility] Comment on above: Performed By: #### B 12FOL, FETIBC #### [facility] [address] [place] [address] Dr. Benito Schwartz IG # 0.02 10e3/ul Normal 0.00-0.03 [facility] Comment on above: Performed By: #### B 12FOL, FETIBC #### [facility] [address] [place] [address] Dr. Benito Schwartz IG % 0.3 % Normal 0.0-0.5 [facility] Comment on above: Performed By: #### B 12FOL, FETIBC #### [facility] [address] [place] [address] Dr. Benito Schwartz LYMPH # 1.0 103/ul Critically low 1.2-3.8 [facility] Comment on above: Performed By: #### B 12FOL, FETIBC #### [facility] [address] [address] [address] Benito Schwartz Lymphocytes/100 WBC (Bld) 16.7 % Critically low 20.5-60.0 [facility] Comment on above: Performed By: #### B 12FOL, FETIBC #### [facility] [address] [address] [address] Benito Schwartz MANUAL DIFF REQ NO Normal [facility] Comment on above: Performed By: #### B 12FOL, FETIBC #### [facility] [address] [place] [address] Dr. Benito Schwartz MCH (RBC) [Entitic mass] 29.1 pg Normal 25.9-34.0 [facility] Comment on above: Performed By: #### B 12FOL, FETIBC #### [facility] [address] [place] [address] Dr. Benito Schwartz MCHC (RBC) [Mass/Vol] 31.4 g/dL Normal 29.9-35.2 [facility] Comment on above: Performed By: #### B 12FOL, FETIBC #### [facility] [address] [place] [address] Dr. Benito Schwartz MCV (RBC) [Entitic vol] 92.6 fL Normal 80.0-94.0 [facility] Comment on above: Performed By: #### B 12FOL, FETIBC #### [facility] [address] [place] [address] Dr. Benito Schwartz MONO # 0.9 103/ul Critically high 0.3-0.8 [facility] Comment on above: Performed By: #### B 12FOL, FETIBC #### [facility] [address] [place] [address] Dr. Benito Schwartz Monocytes/100 WBC (Bld) 15.3 % Critically high 1.7-12. 0 [facility] Comment on above: Performed By: #### B 12FOL, FETIBC #### [facility] [address] [address] [address] Benito Schwartz NEUT # 3.7 103/ul Normal 1.4-6.5 [facility] Comment on above: Performed By: #### B 12FOL, FETIBC #### [facility] [address] [address] [address] Benito Schwartz Neutrophils/100 WBC (Bld) 65.1 % Normal 43.0-75.0 [facility] Comment on above: Performed By: #### B 12FOL, FETIBC #### [facility] [address] [address] [address] Benito Schwartz Platelet mean volume (Bld) [Entitic vol] 9.7 fL Normal 9.5-13.5 [facility] Comment on above: Performed By: #### B 12FOL, FETIBC #### [facility] [address] [address] [address] Benito Schwartz PLT 205 103/ul Normal 150-450 [facility] Comment on above: Performed By: #### B 12FOL, FETIBC #### [facility] [address] [address] [address] Benito Schwartz RBC 2.99 106/ul Critically low 4.70-6.10 [facility] Comment on above: Performed By: #### B 12FOL, FETIBC #### [facility] [address] [address] [address] Benito Schwartz WBC 5.7 103/ul Normal 4.0-11.0 [facility] Comment on above: Performed By: #### B 12FOL, FETIBC #### [facility] [address] [address] [address] HEAD WO CONon 03-06-2022 CT HEAD WO CON EXAMINATION: CT HEAD WO CON, , 03/06/2022 8:14 AM EDT INDICATION: WEAKNESS HISTORY: Ordering Provider Reason for Exam: Technologist Note: Additional: COMPARISON: CT head without contrast, 12/25/2017. TECHNIQUE: CT scan of the head was performed without IV contrast. CT dose reduction technique was used, including Automated Exposure Control. FINDINGS: Paranasal sinuses clear. Mastoid air cells clear. Skull base intact. No skull lesion. Extracranial soft tissue structures are unremarkable. Moderate brain atrophy. Ventricles are moderately dilated but stable in size. No obstructive hydrocephalus. No extra-axial fluid collections. No mass effect. No shift of midline. No acute hemorrhage. No masses. IMPRESSION: 1. No acute findings. No hemorrhage. No masses. 2. Stable brain atrophy. Electronically authenticated by: ANTHONY TRACEY Date: 2022-03-06 12:33 Normal [facility] IRON AND TIBCon 03-06-2022 % SATURATION 24.7 % Normal [facility] Comment on above: Performed By: #### B 12FOL, FETIBC #### [facility] [address] [place] [address] Dr. Benito Schwartz Iron [Mass/Vol] 55.0 ug/dL Critically low 65.0-175.0 [facility] Comment on above: Performed By: #### B 12FOL, FETIBC #### [facility] [address] [place] [address] Dr. Benito Schwartz TIBC DIRECT 223.0 ug/dL Critically low 250.0-450.0 [facility] Comment on above: Performed By: #### B 12FOL, FETIBC #### [facility] [address] [place] [address] Dr. Benito Schwartz POINT OF CARE GLUCOSEon 02-14 Glucose [Mass/Vol] 145 mg/dL Critically high 74-106 [facility] Comment on above: Performed By: #### V ITAD #### [facility] [address] [place] [address] Dr. Benito Schwartz PROF CHEM 8 (BAS METB)on Anion gap [Moles/Vol] 14.6 mmol/L Normal [facility] Comment on above: Performed By: #### V ITAD #### [facility] [address] [place] [address] Dr. Benito Schwartz Calcium [Mass/Vol] 9.0 mg/dL Normal 8.5-10.1 [facility] Comment on above: Performed By: #### V ITAD #### [facility] [address] [address] [address] Benito Schwartz Chloride [Moles/Vol] 106 mmol/L Normal 98-107 [facility] Comment on above: Performed By: #### V ITAD #### [facility] [address] [address] [address] Benito Schwartz CO2 [Moles/Vol] 26.3 mmol/L Normal 21.0-32.0 [facility] Comment on above: Performed By: #### V ITAD #### [facility] [address] [address] [address] Benito Schwartz Creatinine [Mass/Vol] 2.40 mg/dL Critically high 0.70-1.30 [facility] Comment on above: Performed By: #### V ITAD #### [facility] [address] [place] [address] Dr. Benito Schwartz EGFR-AF BAHAMIAN 32 mL/min/1.73m2 Critically low >=60 [facility] Comment on above: Performed By: #### V ITAD #### [facility] [address] [place] [address] Dr. Benito Schwartz EGFR-NON AF BAHAMIAN 26 mL/min/1.73m2 Critically low >=60 [facility] Comment on above: Performed By: #### V ITAD #### [facility] [address] [place] [address] Dr. Benito Schwartz Glucose [Mass/Vol] 108 mg/dL Critically high 74-106 [facility] Comment on above: Performed By: #### V ITAD #### [facility] [address] [address] [address] Benito Schwartz Potassium [Moles/Vol] 3.9 mmol/L Normal 3.5-5.1 [facility] Comment on above: Performed By: #### V ITAD #### [facility] [address] [address] [address] Benito Schwartz Sodium [Moles/Vol] 143 mmol/L Normal 136-145 [facility] Comment on above: Performed By: #### V ITAD #### [facility] [address] [place] [address] Dr. Benito Schwartz Urea nitrogen [Mass/Vol] 72.0 mg/dL Critically high 7.0-18.0 [facility] Comment on above: Performed By: #### V ITAD #### [facility] [address] [place] [address] Dr. Benito Schwartz Urea nitrogen/Creatinine [Mass ratio] 30.0 mg/mg Normal [facility] Comment on above: Performed By: #### V ITAD #### [facility] [address] [place] [address] Dr. Benito Schwartz VIT B12 AND FOLATEon 022 Cobalamin (Vitamin B12) [Mass/Vol] 432.0 pg/mL Normal 193.0-986.0 [facility] Comment on above: Performed By: #### B 12FOL, FETIBC #### [facility] [address] [place] [address] Dr. Benito Schwartz FOLATE 21.60 ng/mL Normal 8.60-58.90 [facility] Comment on above: Performed By: #### B 12FOL, FETIBC #### [facility] [address] [place] [address] Dr. Benito Schwartz BNPon 03-05-2022 Natriuretic peptide B (Bld) [Mass/Vol] 6910.0 pg/mL Critically high <=1,800.0 [facility] Comment on above: Result Comment: Test Repeated. Critical Value Verified Performed By: #### B 12FOL, FETIBC #### [facility] [address] [place] [address] Dr. Benito Schwartz CBC AUTO DIFFon 03-05-2022 BASO # 0.0 103/ul Normal 0.0-0.1 [facility] Comment on above: Performed By: #### F T4, PSASC #### [facility] [address] [place] [address] Dr. Benito Schwartz Basophils/100 WBC (Bld) 0.3 % Normal 0.2-2.0 [facility] Comment on above: Performed By: #### F T4, PSASC #### [facility] [address] [place] [address] Dr. Benito Schwartz EO # 0.2 103/ul Normal 0.0-0.7 [facility] Comment on above: Performed By: #### F T4, PSASC #### [facility] [address] [place] [address] Dr. Benito Schwartz Eosinophils/100 WBC (Bld) 2.7 % Normal 0.9-7.0 [facility] Comment on above: Performed By: #### F T4, PSASC #### [facility] [address] [place] [address] Dr. Benito Schwartz Erythrocyte distribution width (RBC) [Ratio] 13.7 % Normal 11.0-15.0 [facility] Comment on above: Performed By: #### F T4, PSASC #### [facility] [address] [place] [address] Dr. Benito Schwartz Hematocrit (Bld) [Volume fraction] 27.9 % Critically low 42.0-54.0 [facility] Comment on above: Performed By: #### F T4, PSASC #### [facility] [address] [place] [address] Dr. Benito Schwartz Hemoglobin (Bld) [Mass/Vol] 8.9 g/dL Critically low 14.0-18.0 [facility] Comment on above: Performed By: #### F T4, PSASC #### [facility] [address] [place] [address] Dr. Benito Schwartz IG # 0.01 10e3/ul Normal 0.00-0.03 [facility] Comment on above: Performed By: #### F T4, PSASC #### [facility] [address] [place] [address] Dr. Benito Schwartz IG % 0.2 % Normal 0.0-0.5 [facility] Comment on above: Performed By: #### F T4, PSASC #### [facility] [address] [place] [address] Dr. Benito Schwartz LYMPH # 1.3 103/ul Normal 1.2-3.8 [facility] Comment on above: Performed By: #### F T4, PSASC #### [facility] [address] [place] [address] Dr. Benito Schwartz Lymphocytes/100 WBC (Bld) 21.5 % Normal 20.5-60.0 [facility] Comment on above: Performed By: #### F T4, PSASC #### [facility] [address] [place] [address] Dr. Benito Schwartz MANUAL DIFF REQ NO Normal [facility] Comment on above: Performed By: #### F T4, PSASC #### [facility] [address] [place] [address] Dr. Benito Schwartz MCH (RBC) [Entitic mass] 29.5 pg Normal 25.9-34.0 [facility] Comment on above: Performed By: #### F T4, PSASC #### [facility] [address] [place] [address] Dr. Beniot Schwartz MCHC (RBC) [Mass/Vol] 31.9 g/dL Normal 29.9-35.2 [facility] Comment on above: Performed By: #### F T4, PSASC #### [facility] [address] [place] [address] Dr. Benito Schwartz MCV (RBC) [Entitic vol] 92.4 fL Normal 80.0-94.0 [facility] Comment on above: Performed By: #### F T4, PSASC #### [facility] [address] [place] [address] Dr. Benito Schwartz MONO # 1.0 103/ul Critically high 0.3-0.8 [facility] Comment on above: Performed By: #### F T4, PSASC #### [facility] [address] [place] [address] Dr. Benito Schwartz Monocytes/100 WBC (Bld) 16.3 % Critically high 1.7-12. 0 [facility] Comment on above: Performed By: #### F T4, PSASC #### [facility] [address] [place] [address] Dr. Benito Schwartz NEUT # 3.5 103/ul Normal 1.4-6.5 [facility] Comment on above: Performed By: #### F T4, PSASC #### [facility] [address] [place] [address] Dr. Benito Schwartz Neutrophils/100 WBC (Bld) 59.0 % Normal 43.0-75.0 [facility] Comment on above: Performed By: #### F T4, PSASC #### [facility] [address] [place] [address] Dr. Benito Schwartz Platelet mean volume (Bld) [Entitic vol] 9.5 fL Normal 9.5-13.5 [facility] Comment on above: Performed By: #### F T4, PSASC #### [facility] [address] [place] [address] Dr. Benito Schwartz PLT 213 103/ul Normal 150-450 [facility] Comment on above: Performed By: #### F T4, PSASC #### [facility] [address] [place] [address] Dr. Benito Schwartz RBC 3.02 106/ul Critically low 4.70-6.10 [facility] Comment on above: Performed By: #### F T4, PSASC #### [facility] [address] [place] [address] Dr. Benito Schwartz WBC 5.9 103/ul Normal 4.0-11.0 [facility] Comment on above: Performed By: #### F T4, PSASC #### [facility] [address] [place] [address] Dr. Benito Schwartz CULTURE BLOODon 03-05-2022 Microscopic examination of blood, culture Culture Observations: NO GROWTH AT 5 DAYS. Normal [facility] Comment on above: Performed By: #### V ITAD #### [facility] [address] [place] [address] Dr. Benito Schwartz [facility]14 SARS-CoV-2 (COVID-19) RNA ZITA+probe Ql (Unsp spec) Not detected Normal NOT DETECTED [facility] Comment on above: Result Comment: This test is not yet approved or cleared by the [place] FDA. When there are no FDA-approved or cleared tests available, and other criteria are met, FDA can make tests available under an emergency access mechanism called an Emergency Use Authorization (EUA). The EUA for this test is supported by the [place] of Health and Human Service's (HHS's) declaration that circumstances exist to justify the emergency use of in vitro diagnostics for the detection and/or diagnosis of the virus that causes COVID-19. This EUA will remain in effect (meaning this test can be used) for the duration of the COVID-19 declaration justifying emergency of IVDs, unless it is terminated or revoked by FDA (after which the test may no longer be used). When diagnostic testing is negative, the possibility of a false negative should be considered in the context of a patient's recent exposures and the presence of clinical signs and symptoms consistent with SARS-CoV-2. Performed By: #### C BC #### [facility] [address] [place] [address] Dr. Benito Schwartz FREE T4on 03-05-2022 Free T4 [Mass/Vol] ng/dL Critically high 0.76-1.46 [facility] Comment on above: Performed By: #### C BC #### [facility] [address] [place] [address] Dr. Benito Schwartz LACTATE/LACTIC ACIDon 2021 Lactate [Moles/Vol] 1.2 mmol/L Normal 0.4-1.9 [facility] Comment on above: Performed By: #### F T4 #### [facility] [address] [place] [address] Dr. Benito Schwartz PROF 14(COMP METB)on 022 Albumin [Mass/Vol] 2.9 g/dL Critically low 3.4-5.0 [facility] Comment on above: Performed By: #### F T4, PSASC #### [facility] [address] [place] [address] Dr. Benito Schwartz Albumin/Globulin [Mass ratio] 0.8 {ratio} Normal [facility] Comment on above: Performed By: #### F T4, PSASC #### [facility] [address] [address] [address] Benito Schwartz ALP [Catalytic activity/Vol] 107 U/L Normal 46-116 [facility] Comment on above: Performed By: #### F T4, PSASC #### [facility] [address] [address] [address] Benito Schwartz ALT [Catalytic activity/Vol] 25 U/L Normal 16-63 [facility] Comment on above: Performed By: #### F T4, PSASC #### [facility] [address] [address] [address] Benito Schwartz Anion gap [Moles/Vol] 14.2 mmol/L Normal [facility] Comment on above: Performed By: #### F T4, PSASC #### [facility] [address] [address] [address] Benito Schwartz AST [Catalytic activity/Vol] 17 U/L Normal 15-37 [facility] Comment on above: Performed By: #### F T4, PSASC #### [facility] [address] [address] [address] Benito Schwartz Bilirubin [Mass/Vol] 0.5 mg/dL Normal 0.2-1.0 [facility] Comment on above: Performed By: #### F T4, PSASC #### [facility] [address] [address] [address] Benito Schwartz Calcium [Mass/Vol] 9.1 mg/dL Normal 8.5-10.1 [facility] Comment on above: Performed By: #### F T4, PSASC #### [facility] [address] [address] [address] Benito Schwartz Chloride [Moles/Vol] 104 mmol/L Normal 98-107 [facility] Comment on above: Performed By: #### F T4, PSASC #### [facility] [address] [address] [address] Benito Schwartz CO2 [Moles/Vol] 27.0 mmol/L Normal 21.0-32.0 [facility] Comment on above: Performed By: #### F T4, PSASC #### [facility] [address] [address] [address] Bentio Schwartz Creatinine [Mass/Vol] 2.97 mg/dL Critically high 0.70-1.30 [facility] Comment on above: Performed By: #### F T4, PSASC #### [facility] [address] [place] [address] Dr. Benito Schwartz EGFR-AF BAHAMIAN 25 mL/min/1.73m2 Critically low >=60 [facility] Comment on above: Performed By: #### F T4, PSASC #### [facility] [address] [place] [address] Dr. Benito Schwartz EGFR-NON AF BAHAMIAN 21 mL/min/1.73m2 Critically low >=60 [facility] Comment on above: Performed By: #### F T4, PSASC #### [facility] [address] [place] [address] Dr. Benito Schwartz Globulin (S) [Mass/Vol] 3.6 g/dL Normal [facility] Comment on above: Performed By: #### F T4, PSASC #### [facility] [address] [place] [address] Dr. Benito Schwartz Glucose [Mass/Vol] 162 mg/dL Critically high 74-106 [facility] Comment on above: Performed By: #### F T4, PSASC #### [facility] [address] [place] [address] Dr. Benito Schwartz Potassium [Moles/Vol] 4.2 mmol/L Normal 3.5-5.1 [facility] Comment on above: Performed By: #### F T4, PSASC #### [facility] [address] [place] [address] Dr. Benito Schwartz Protein [Mass/Vol] 6.5 g/dL Normal 6.4-8.2 [facility] Comment on above: Performed By: #### F T4, PSASC #### [facility] [address] [place] [address] Dr. Benito Schwartz Sodium [Moles/Vol] 141 mmol/L Normal 136-145 [facility] Comment on above: Performed By: #### F T4, PSASC #### [facility] [address] [place] [address] Dr. Benito Schwartz Urea nitrogen [Mass/Vol] 74.0 mg/dL Critically high 7.0-18.0 [facility] Comment on above: Performed By: #### F T4, PSASC #### [facility] [address] [place] [address] Dr. Benito Schwartz Urea nitrogen/Creatinine [Mass ratio] 24.9 mg/mg Normal [facility] Comment on above: Performed By: #### F T4, PSASC #### [facility] [address] [place] [address] Dr. Benito Schwartz TROPONIN, HIGH SENSITIVITYon 03-05-2022 HSTROP 39.6 pg/mL Normal 4.0-76.1 [facility] Comment on above: Result Comment: CUT- OFF POINTS HAVE BEEN ESTABLISHED BASED ON THE FOURTH UNIVERSAL DEFINITIONS OF MYOCARDIAL INFARCTION. THE UPPER REFERENCE LIMIT (URL) OF TROPONIN, DEFINED THE 99TH PERCENTILE OF cTnI DISTRIBUTION IN A REFERENCE POPULATION, HAS BEEN CONFIRMED THE DECISION THRESHOLD FOR OK DIAGNOSIS. Performed By: #### F T4, PSASC #### [facility] [address] [place] [address] Dr. Benito Schwartz TSHon 03-05-2022 TSH Qn m[IU]/L Critically low 0.358-3.740 [facility] Comment on above: Performed By: #### F T4 #### [facility] [address] [place] [address] Dr. Benito Schwartz TSH RANGE SEE BELOW Normal [facility] Comment on above: Result Comment: <0.3 4 UIU/ml HYPERTHYROID 0.34-5.60 UIU/ml EUTHYROID >5.60 UIU/ml HYPOTHYROID Performed By: #### F T4 #### [facility] [address] [place] [address] Dr. Benito Schwartz US THYROIDon 03-04-2022 US THYROID EXAMINATION: US THYROID HISTORY: Acute thyroiditis COMPARISON: No relevant comparison available. FINDINGS: RIGHT LOBE: Normal size and echotexture. Lobe size: 6.5 x 3.2 x 2.7 cm LEFT LOBE: Contains a incidental 0.8 cm TR 2 nodules. Homogeneous echotexture of the lobe. Lobe size: 5.0 x 3.5 x 2.3 cm ISTHMUS: Thickened, but homogeneous without appreciable nodule. Thickness: 7 mm IMPRESSION: 1. No suspicious nodules. 2. Homogeneous echotexture. No increased vascularity. TR 2: TI-RADS 2: Benign nodules. Electronically authenticated by: MALENA RIOS Date: 2022-03-04 13:56 Normal [facility] - Chemistry and C hemistry - challengeOrdered By: Enrrique Mckeon on 02-22-2022 Natriuretic peptide B (Bld) [Mass/Vol] 251.0 pg/mL 5-100 [facility] TSH DL <= 0.005 mIU/L QnOrde red By: Enrrique Mckeon on 02-22-2022 TSH Qn m[IU]/L 0.45-5.33 [facility] Coding Summaryon 07-08-2021 Coding Summary HTMLBase 64 NsleecxgKNj4tXy+PGhlY WQ+YY2SCQOvQ04meYGeaC 1UI7eCSC2INCGSYCWJSL5 QHP6gtRQ0CJdbG5JzxvDt XiffnZVyYI17UOf8LCW4t ZohOLculI5bqUWzB2i4Tw YjUT04tY07SBooCZTiHnY 3LjZpbjsgbWFy M1aeGyTprTUrTnl+PHRhY mxlIHdpZHRoPScxMDAlJy VfpKmiYC2zVg6hSZKoBSW vbGxhcHNlOiBj e9esCMKfKCnfRI9ebHprI 8KaoWR4EJOxs5c8Hl71pH I+MSWjVSD4bSazFHsve78 6FeDrh0urYGD5 zOTxJOrfPBL7R34ru1A4N NWqFSHoLPD5oDX4pD0wrX ycwpajZ3DqlYWbUyX0EDQ 7vRSwiM0knIxb wouwnF7aCor+W51ERF2MF ISRUZ4TYzo0E4JoNgqxzW I+OK02RKLrAZ33dAMnqMP ga0qnkXi6HnKc IJSgWBK5pNkbLOfok8RaC CFqF83zaTJzo7X9BTVciX dnfXHqOhVpoYQ0nT4bBLd brkkln6mrilnl Joynb8yjrn99qA09F17qE XcjHERjIUZ5GSYoRBFzyO tzwh2ylP1pJe1+SGcxj1n cy8auvKz1XsBd OHFlpjHzvKdqTOV9f8QaQ j48P9AbiVvwh9WuRvn1pq 39aXJxb9K6pVK6GWqqABM ilQ8yAIndYrL1 XULcEbDvbI25yYWeOQrnY q9avEfxkYdbPS2aGRXtic smJGNvrV1dRYBqpMQbdFn uGH8jZFMwaota p365ZtMqZYL0JZGxeMAvO 6MgpS2aMgQzSYDzKUXeU6 KfeQVcMMusG945IFtzIaG 4CQGqjuQnA0Pn QIBdhLlvFyH7x7C9Op8Ua 6NrrfvlSTO8UDgpIZA7Ge ShWbGaJiU0Q3HlXqp3VTE rqQaeSO4hW5Jp GPFafirdxbzweCA2FOFhI LMncH62fVYnPSliCp7fm2 L9q536FTDvDGAdbV65Ww3 udDogMTBwdCBU hB5bmyzom4veenhzVfAoN EIfWYo7BGa8YVFicMqeIz VdQRO2YvA3QTL1xXTedC3 ujIpmlemmrT9m Oyc+Y26ibO2uFBP4ZHA3a juuYXKqgrIdDW54XC01P2 RyPjwvdGFibGU+PGRpdiB gwOyvPJ8tSkPc v3aux6NgMOcnR5SnRLUlB MdcQiv0GPBsYSQ9aZL8yB 8yHCJsGIyhn5G6mKA0V6C jfwQumf7co1an JBGzDZxlE38ulABlo8P6G CAlzPJ6LQGlcPfiWpRbpD 93Oyc+BBQoiZigq5ExGmy oi0oje9jzwIt2 YxNkWWHgxkEjoReiIYW7a 6IrJt00V13wBDtwHAIyHK JhATPuGZXafZheqy6snD4 wIi8+PGNvbCB3 zJE4bS4yWOErJtC6HNyeU 620GxGnwGNfEscxl7omc3 wryXw4RbUiOFXzfuJhvLx yBAI9p5MdSt74 Y26oRUkwBFVrJENtKSYtK ZLukGukyr2yhJ3rBo1+PC 0jv8omqe06qL83iNE+PHR kNMY8dMlbWOei JZJzeX4fBQgzKwP0SVQpT cGarA30eMWvZOfbOu1dpP kemPpdFU1nYAEyihwrw49 2OjOgt6qkCXIk bNAlEVxjGAS8R89ra9Y4V CDzHAXtSMB2pES5uI7zeW lnbjogbGVmdDsgdmVydGl bIPigCCtcO333 IHRvcDsnPlBhdGllbnQgT wRcZZu7F7QoIeb3VLCacY rsBI4vjFYhKSyaRi8qtNj qfXegUR3yCNIg xjlgo209UaFpk5wnFVQbm MGiIXuxPCG2Q78ic2E6PX TdRRRpVKR6cNO8rH1doBh nbjogbGVmdDsg ymZtzLxjWOkdXDnjU855R HRvcDsnPkJpcnRoIERhdG D1EX57NE28wPRur5C3dTG 1Q5GeDEKdwbpv uamllUV7COIfTULrbC83Q q6igKfgAu4lWJAaFQS9PY FawATgE2QicX6lPaUuEBC hLJDfR3FaeZGm HVsdQ403AVvjJzG6JPUds xKqH5MwQZEsvLniWtL8g8 L2Ox0GY5M3VA77NQ35aVS oh4L5oZW7H3Rf BBDrwcvmgznnnBK8PJJyX OFubW94Ig4elMsoBf5aQB NzZKX1RBGzhERdA0XpzM6 yOiAjMDAwMDAw O6UvlMBaZTuzC129HYaiI aY5LWQhleQbW4UnFNQmjV uwCuR4a0R7Rx9FECj1JZ6 1IS45sOHhw2M1 eVR6N7LuSHKmozsmkheno PO2TWWbGYFcmQ85Sd5wdU rjIg0vAXShVWI3YUFmoVU jE0TovD9bFcUa PPEtJIGuU0LotGOhSKwwR 515WZfiUlM5YBMsxpQoM4 EpHBYjwOkoVfA9d0X8Su1 EARUyWZ44DSR2 lRR7ZC97FE27Y1WzWibwh GFibGU+PHRhYmxlIHdpZH RoPScxMDAlJyBzdHlsZT0 zLz9oEXOxLFIl wRlbkEYyTbDla4xjYMNoN EswWB5tzCpqY8QvkUJ1UJ Jqm1j1Dq24C78cQ3RqzDG +YSDcxYL3mLA4 nD9yNlCeMlW7TKjwS927Z bDmyGItLuwva2svf2hsjY q7SoD5PBLwcsEegXodXLZ 8m9PqGf78A04z IHdpZHRoPSIxNSUiIHZhb Iixbj2pdQ7uOd2+PGNvbC I5zNL8mN8zBqJgIbP0FAc qU539JbBpqTYt Vosmr0fpx0vlbHc7NyNuS QZuavZmiAxiCWL6t2GcZb 77Z9ZmcBylm9IcYga3me5 6pEUnp8S0mXO7 K2HdUJEjtcshjWQsjVpnU J1tVYNlgcvaZNGsgI1jOG UoD8s4ZbSbMqU1XEnoG1B zbiU5ZBUlcLUe LNhfYEC3J75qw7A1ADJrC FDrVWU2yCH9rE2bxZpkji ogbGVmdDsgdmVydGljYWw qXFtrZ671ZMKb zIkkVAJcfK0uELIqeKCay HjePH1zXUQkbisaAgYKPR NTLsavIhZITlz9I9TgPad 2FYHgrFhqWA0y kBRoMIrjZe4axNvkgDvjC N4cBZEsepaqQORccZ4iJU QiyQBrnFhpXR2uCTUaxwt mo519YyKhSQZ7 ECOwvRJrS5RusF3oEiViJ WPiZQPxO0TzyCOoCLnbW0 62WVefFaZ4KPHvpbGgW1K sLWFsaWduOiB0 x6L7Yu2wJd5hSZ4kQEGfN G41MH40eAVsn3N2cCG8D4 VxEVQwqwudkhxzaCF5YWD rNQJmzO66fGPm UIacEz3ic0E6d687XYGgR JBhoV83Na4njQarJRTlhQ NRhP7jiispw7eviemcIdD wQWGmUHh0GZb3 ISQciBvwWjWaUWJ7UeX8E BP8dUZtsP7thHdtxuptkG 9wOyc+CqvlUKMnzeX9J7J cTow0OSJuyImm XB1rjRHkYUeaUc5bvQobt SxcMJ7xKJSdogbyLUQivL 3xUGWrtGJsfYsmKL3jJMM xtzttr174AsTt GKJ3IOAgkFBkJ3RizE0dD gYrPVJsJSDbF2SzgDPaYW ouL697LHysQbI1LHMcmvE nK8DaIDUbzWzr AfR6a5X0Aw9TMUhZJR77G D69cDCcw3Q8qCL3F8MvBW VxgngkukowrOS8AQWzLYB hiC00pCWoTRfi Qo0sf0U6s554JMCrMPWct B25Na8puUajPBMrnJKMiM 3xphahk4pdcnouDuUaRFS lGRn4ZIp5HPTd sPdjTzUwTET0CuL9YHW4n KVooA8mfBcywfbuhR3nTp c+T2U3U2McRtoptRF+PC9 7AYAmFO38oHRb gFVvl9dpwJw7UuPiXBOsU OW8jAcsPOqym0EnSNCmW6 1bvBXau9K2DASirHtruCG yLwIzqCM3sO0l OBgumxctq9lqegpmHtqis 2giuv41wZ26C98cTZddKH RoPSIzMCUiIHZhbGlnbj0 wpH1tIj0+PGNv cCL6oDG8eH5mWpHwHvX2R NcpX891VhFavRTyJkplr2 bqj5uwpXq2HgZwOTCmvsI fwEppDZW7z1Ba Os35Q20sUOfsTQMvVDGaU GKtKLVrcBbrtn6ugA6bOw 8+WA8ys1ipam80rT74bXP +UIQdZTL2pPna WAegFDXxuW2dFOuiOlP6X JGtNaVofF70eMJsDIhuQs 3xnWaleArhLQ7eZPFcwpw vo064WmGvf5lz KAPcqOSaZUcxEMB6Y06gh 7A7VGHeMTSqEHZ3oAA3dS 1hbGlnbjogbGVmdDsgdmV ydGljYWwtYWxp J122KXCfsOjlXvKhlQEqG 1lkeiBKPV2dAhbjwAN+PH OhSXC9lQokGQmtBZHriH5 kVYLoW8v7TsGb TlF9LDjuD1KdjcT2YFFyb LUjMDBawGPYqR3hjbopr4 jljkchCtKdDUTzHDo8FFp 0LWFsaWduOiBs RJI6KsF2PNE7cRMgwN1mz NhbwqzjfO3aYqy+RklOOj wvdGQ+PNQfVUD3vXdxAWv cJRVlkL3uYVOf S7i0FyLiYmQ0FNtqU1Pbz cQ0UWUgmVKlGZWimJUFmI 2lgficc9lqwzhpKoUuAPQ xLOw4PDp9GAMh gDjhWlDsEXZ3SyM3EYE0x NFmiY3owDdpzcerkL6rGk c+TVJOOjwvdGQ+PHRkIHN 0eWxlPSdwYWRk dJ7eZOSrD7e4FjCpYkS6Y ZutK5ZvaxV0ECOvlONdIJ WlhZLTfY1mbumdt5nrjsn gIzAwMDAwMDt0 PRc4MSZucDqzCiPcFHW1J hB9CAD9zPUarU4txZabvs kucS8sLrc+FIF3RWO6AE0 3JO73E7ZiAyxn dGFibGU+PHRhYmxlIHdpZ HRoPScxMDAlJyBzdHlsZT 5qTo6jWUBsFUGqjEtobGY zQsRfc9gnUGRh ZTs (more content not included)... [facility] Provider Orderson 07-05-2021 Provider Orders [id number] [facility] Creatinine Lvlon 07-02-2021 eGFR Non AA 29 mL/min/1.73m2 Invalid Interpretation Code [facility] Comment on above: Performed By: #### [id number] #### [facility] (DEFAULT) [address] [place] [address] eGFR AA 35 mL/min/1.73m2 Invalid Interpretation Code [facility] Comment on above: Result Comment: [employer] hilda Kidney disease could be indicated at eGFRs of less than 60 ml/min/1.73m2. Kidney Failure is indicated at less than 15 ml/min/1.73m2 Performed By: #### [id number] #### [facility] (DEFAULT) [address] [place] [id number] Creatinine [Mass/Vol] 2.19 mg/dL High 0.90-1.30 [facility] Comment on above: Performed By: #### 2 [id number] #### [facility] (DEFAULT) [address] [place] [id number] Vital Signs Date Time Vital Sign Value Performing Clinician Facility 09-01-2023 13:51-0500 Body height 180.34 cm DO Arnie Ball Work Phone: [facility] 09-01-2023 13:51-0500 Body temperature 97.7 [degF] DO Arnie Ball Work Phone: [facility] 09-01-2023 13:51-0500 Body weight 98.02 kg DO Arnie Ball Work Phone: [facility] 09-01-2023 13:51-0500 Diastolic blood pressure 79 mm[Hg] DO Arnie Ball Work Phone: [facility] 09-01-2023 13:51-0500 Heart rate 70 /min DO Arnie Ball Work Phone: [facility] 09-01-2023 13:51-0500 Respiratory rate 20 /min DO Arnie Ball Work Phone: [facility] 09-01-2023 13:51-0500 SaO2% (BldA) [Mass fraction] 96 % DO Arnie Ball Work Phone: [facility] 09-01-2023 13:51-0500 Systolic blood pressure 147 mm[Hg] DO Arnie Ball Work Phone: [facility] 08-22-2023 10:00-0500 Body height Arnie Ball Other [facility] 08-22-2023 10:00-0500 Body mass index (BMI) [Ratio] 29.35 kg/m2 Arnie Ball Other [facility] 08-22-2023 10:00-0500 Body weight 98.16 kg Arnie Ball Other [facility] 08-22-2023 10:00-0500 Diastolic blood pressure 74 mm[Hg] Arnie Ball Other [facility] 08-22-2023 10:00-0500 Respiratory rate 12 /min Arnie Ball Other [employer] [facility] 08-22-2023 10:00-0500 Systolic blood pressure 135 mm[Hg] Arnie Ball Other [employer] Other 04-20-2023 09:30-0400 Body height Arnie Ball Other [employer] Other 04-20-2023 09:30-0400 Body mass index (BMI) [Ratio] 29.62 kg/m2 Arnie Ball Other [employer] [facility] 04-20-2023 09:30-0400 Body weight 99.07 kg Arnie Ball Other [employer] [facility] 04-20-2023 09:30-0400 Diastolic blood pressure 64 mm[Hg] Arnie Ball Other [employer] Other 04-20-2023 09:30-0400 Respiratory rate 12 /min Arnie Ball Other [employer] Other 04-20-2023 09:30-0400 Systolic blood pressure 113 mm[Hg] Arnie Ball Other [employer] Other 12-15-2022 10:00-0500 Body height Arnie Ball Other [employer] Other 12-15-2022 10:00-0500 Body mass index (BMI) [Ratio] 29.81 kg/m2 Arnie Ball Other [employer] [facility] 12-15-2022 10:00-0500 Body weight 99.7 kg Arnie Ball Other [employer] Other 12-15-2022 10:00-0500 Diastolic blood pressure 70 mm[Hg] Arnie Ball Other [employer] Other 12-15-2022 10:00-0500 Respiratory rate 12 /min Arnie Ball Other [employer] Other 12-15-2022 10:00-0500 Systolic blood pressure 122 mm[Hg] Arnie Ball Other [employer] Other 09-02-2022 14:11-0500 Body weight 98.9 kg DO Arnie Ball Work Phone: [facility] 09-02-2022 14:11-0500 Diastolic blood pressure 72 mm[Hg] DO Arnie Ball Work Phone: [facility] 09-02-2022 14:11-0500 Heart rate 60 /min DO Arnie Ball Work Phone: [facility] 09-02-2022 14:11-0500 Respiratory rate 20 /min DO Arnie Ball Work Phone: [facility] 09-02-2022 14:11-0500 SaO2% (BldA) [Mass fraction] 96 % DO Arnie Ball Work Phone: [facility] 09-02-2022 14:11-0500 Systolic blood pressure 153 mm[Hg] DO Arnie Ball Work Phone: [facility] 07-21-2022 10:13-0400 Diastolic blood pressure 64 mm[Hg] DO Arnie Ball Work Phone: [facility] 07-21-2022 10:130400 Heart rate 60 /min DO Arnie Ball Work Phone: [facility] 07-21-2022 10:130400 Respiratory rate 16 /min DO Arnie Ball Work Phone: [facility] 07-21-2022 10:130400 SaO2% (BldA) [Mass fraction] 95 % DO Arnie Ball Work Phone: [facility] 07-21-2022 10:130400 Systolic blood pressure 135 mm[Hg] DO Arnie Ball Work Phone: [facility] 07-21-2022 08:10-0400 Body height 180.34 cm DO Arnie Ball Work Phone: [facility] 07-21-2022 08:10-0400 Body temperature 98.2 [degF] DO Arnie Ball Work Phone: [facility] 07-21-2022 08:10-0400 Body weight 90.71 kg DO Arnie Ball Work Phone: [facility] 06-17-2022 10:25-0400 Body temperature 98.2 [degF] DO Arnie Ball Work Phone: [facility] 06-17-2022 10:25-0400 Diastolic blood pressure 58 mm[Hg] DO Arnie Ball Work Phone: [facility] 06-17-2022 10:25-0400 Heart rate 62 /min DO Arnie Ball Work Phone: [facility] 06-17-2022 10:25-0400 Respiratory rate 18 /min DO Arnie Ball Work Phone: [facility] 06-17-2022 10:25-0400 SaO2% (BldA) [Mass fraction] 98 % DO Arnie Ball Work Phone: [facility] 06-17-2022 10:25-0400 Systolic blood pressure 124 mm[Hg] DO Arnie Ball Work Phone: [facility] 06-03-2022 09:55-0400 Body height 180.34 cm DO Arnie Ball Work Phone: [facility] 06-03-2022 09:55-0400 Body weight 92.85 kg DO Arnie Ball Work Phone: [facility] Encounters Encounter Date Encounter Type Care Provider Facility Start: 12-18-2023 End: 12-18-2023 ambulatory Arnie Linda Other [facility] Other Start: 12-18-2023 Telephone encounter Arnie Linda [facility] Start: 09-29-2023 End: 09-29-2023 ambulatory Arnie Linda Other [facility] Other Start: 09-29-2023 Telephone encounter Arnie Linda DANILO [facility] Start: 09-22-2023 End: 09-22-2023 ambulatory [facility] Start: 09-04-2023 End: 09-04-2023 ambulatory [facility] Start: 09-01-2023 ambulatory Chivo heath II Facility:[facility] Start: 09-01-2023 End: 09-01-2023 ambulatory DO Arnie Ball Work Phone: [facility] Work Phone: Start: 09-01-2023 End: 09-01-2023 Registered Recurring DO Arnie Ball Work Phone: [facility] Work Phone: Start: 08-27-2023 End: 08-27-2023 ambulatory Arnie Linda Other [facility] Other Start: 08-27-2023 Telephone encounter Arnie Linda DANILO [facility] Start: 08-22-2023 End: 08-22-2023 ambulatory Arnie Linda Other [facility] Other Start: 08-22-2023 Office outpatient vi sit 25 minutes Arnie Ball [facility] Start: 07-03-2023 End: 07-03-2023 ambulatory Arnie Ball Other [facility] Other Start: 07-03-2023 Telephone encounter Arnie [facility] Start: 07-01-2023 End: 07-01-2023 ambulatory Arnie Ball Other [facility] Other Start: 07-01-2023 Telephone encounter Arnie Ball [facility] Start: 06-30-2023 End: 06-30-2023 ambulatory MADDI [facility] Start: 06-23-2023 End: 06-23-2023 ambulatory [facility] Start: 06-22-2023 End: 06-22-2023 ambulatory Arnie Ball Other [facility] Other Start: 06-22-2023 Telephone encounter Arnie Ball [facility] Start: 06-12-2023 Telephone encounter Arnie Ball [facility] Start: 06-12-2023 End: 06-12-2023 [facility] [place] [facility] Start: 04-26-2023 End: 04-26-2023 ambulatory Arnie Ball Other [facility] Other Start: 04-26-2023 Telephone encounter Arnie [facility]: [facility] Start: 04-20-2023 End: 04-20-2023 ambulatory Arnie Ball Other [facility] Other Start: 04-20-2023 Office outpatient vi sit 25 minutes Arnie Ball [facility] Start: 04-04-2023 End: 04-04-2023 ambulatory [facility] Start: 03-14-2023 End: 03-14-2023 ambulatory Arnie Linda Other [facility] Other Start: 03-14-2023 Telephone encounter Arnie CARRASCO [facility] Start: 02-28-2023 End: 03-01-[address] DOCTOR ALFARO Facility:[facility] Start: 02-15-2023 Telephone encounter Arnie CARRASCO [facility] Start: 02-15-2023 End: 02-16-[address] DOCTOR ALFARO [facility] Other Start: 02-14-2023 End: 02-14-2023 ambulatory Arnie Linda Other [facility] Other Start: 02-14-2023 Telephone encounter Arnie CARRASCO [facility] Start: 02-13-2023 End: 02-13-2023 ambulatory MADDI SONG [facility] Start: 01-31-2023 End: 01-31-2023 ambulatory MARIUSZ DEGROOT [facility] Start: 01-11-2023 End: 01-11-2023 ambulatory Arnie Linda Other [facility] Other Start: 01-11-2023 Office outpatient vi sit 15 minutes Arnie Linda [facility] Start: 01-02-2023 End: 01-03-2023 ambulatory AVERY SYED MD Facility:[facility] Start: 12-22-2022 ambulatory DAWN NOLASCO [facility] Start: 12-15-2022 End: 12-15-2022 ambulatory Arnie Linda Other [facility] Other Start: 12-15-2022 Patient encounter procedure Arnie Linda [facility] Start: 11-16-2022 End: 11-17-[address] ARNIE LINDA Facility:[facility] Start: 11-14-2022 End: 11-14-2022 ambulatory Arnie Linda Other [facility] Other Start: 11-14-2022 Telephone encounter [facility] Start: 10-03-2022 End: 10-04-[address] ARNIE LINDA Facility:[facility] Start: 09-22-2022 End: 09-23-[address] DOCTOR EDWARDS Facility:[facility] Start: 09-09-2022 End: 09-10-[address] DOCTOR EDWARDS Facility:[facility] Start: 09-02-2022 End: 09-02-2022 ambulatory DO Arnie Linda Work Phone: [facility] Work Phone: Start: 09-02-2022 End: 09-02-2022 Registered Recurring DO Arnie Linda Work Phone: [facility] Start: 08-30-2022 End: 08-31-[address] ARNIE LINDA Facility:[facility] Start: 07-21-2022 End: 07-21-2022 Admission to same day surgery center DO Arnie Linda Work Phone: [facility] Start: 07-21-2022 End: 07-21-2022 ambulatory DO Arnie Maddi Work Phone: [facility] Work Phone: Start: 07-20-2022 End: 07-21-[address] ARNIE LINDA Facility:[facility] Start: 07-19-2022 End: 07-19-2022 ambulatory DO Arnie Maddi Work Phone: [facility] Work Phone: Start: 07-19-2022 End: 07-19-2022 Patient encounter procedure DO Arnie Maddi Work Phone: [facility] Start: 07-07-[address] DAWN Rodgers ility:[facility] Start: 06-21-2022 Adult health examination Arnie Linda Other Located Within [facility] [place] Other Start: 06-17-2022 Registered Recurring DO Jeremi in Ball Work Phone: [facility] Start: 06-03-2022 End: 06-03-2022 Registered Recurring DO Arnie Linda Work Phone: [facility] Start: 05-31-2022 End: 05-31-2022 Patient encounter procedure DO Arnie Linda Work Phone: [facility] [place] Start: 05-12-2022 End: 05-13-2022 ambulatory AVERY SYED MD Facility:[facility] Start: 05-10-2022 End: 05-11-2022 ambulatory ROXANNE SANCHEZ Facility:[facility] Start: 04-26-2022 End: 04-27-[address] DOCTOR EDWARDS Facility:[facility] Start: 04-11-2022 End: 07-07-[address] ARNIE LINDA Facility:[facility] Start: 04-08-2022 End: 04-09-[address] ARNIE LINDA Facility:[facility] Start: 03-30-2022 End: 04-02-2022 Evaluation and management of inpatient GILMER SALAZAR Facility:[facility] Start: 03-25-2022 End: 03-26-2022 ambulatory ENRRQIUE MCKEON Facility:[facility] Start: 03-11-2022 ambulatory ENRRIQUE MCKEON Facility :[facility] Start: 03-06-2022 End: 03-07-2022 Evaluation and management of inpatient DR RUPINDER GRIGSBY . Facility:[facility] Start: 03-04-2022 End: 03-05-[address] ARNIE LINDA Facility:[facility] Start: 08-17-2021 End: 08-17-2021 Pre-procedure evaluation check Arnie Linda Other [facility] Other Start: 08-15-2021 Bradycardia DO Arnie neumann Work Phone: [facility] Procedures Date Procedure Procedure Detail Performing Clinician Start: 08-30-2023 Carcinoembryonic antigen cea Chivo Keller II Comment on above: Result Comment: PERF ORMED BY: [place] [id number] PATHOLOGIST STATION ATTENDANT TRU UMANZOR M.D. Performed By: #### C MP, FE and TIBC, TONY, CBC, CEA #### [address] [address] [facility] Start: 08-30-2023 CT of abdomen and pe lvis without contrast DO Arnie Ball Work Phone: Start: 08-30-2023 CT of chest without contrast DO Arnie Ball Work Phone: Start: 02-28-2023 Carcinoembryonic antigen cea Chivo Boxkumar APARICIO Comment on above: Result Comment: PERF ORMED BY: [facility] [address] [place] [address] PATHOLOGIST STATION ATTENDANT TRU UMANZOR M.D. Performed By: #### C MP, FE and TIBC, TONY, CBC, CEA #### [facility] [address] Start: 02-28-2023 CT of abdomen and pe lvis without contrast DO Arnie Ball Work Phone: Start: 02-28-2023 CT of chest without contrast DO Arnie Ball Work Phone: Start: 01-02-2023 PSA screening ROXANNE C[place]ton OES Comment on above: Performed By: #### F T4, PSASC #### [facility] [address] [place] [address] Dr. Benito Schwartz Start: 08-31-2022 CT of abdomen and pe lvis without contrast DO Arnie Ball Work Phone: Start: 08-31-2022 CT of chest without contrast DO Arnie Ball Work Phone: Start: 07-21-2022 Colonoscopy DO Benjami n Ball Work Phone: Start: 05-31-2022 CT of abdomen and pe lvis without contrast DO Arnie Ball Work Phone: Start: 05-31-2022 CT of chest without contrast DO Arnie Ball Work Phone: Start: 02-22-2022 Computed tomography of abdomen and pelvis with contrast DO Arnie Ball Work Phone: Start: 02-22-2022 CT of thorax with contrast DO Arnie Ball Work Phone: Start: 05-19-2018 Laboratory test resu lt abnormal Arnie Ball Other Start: 04-25-2017 Screening for malign ant neoplasm of colon Arnie Linda Other Start: 08-24-2016 Pre-surgery evaluation Arnie Linda Other Start: 08-24-2016 Preoperative cardiov ascular examination Arnie Linda Other Start: 01-01-2015 Screening for malign ant neoplasm of prostate Arnie Linda Other Depression screening Shannon Linda Other SARS Antigen (LFIA) DO Gume Linda Work Phone: Screening for malign ant neoplasm of prostate Arnie Linda Other Plan of Treatment Date Care Activity Detail Author Start: 07-21-2022 [facility] Start: 06-17-2022 Registered Recurring Colon cancer [facility] Start: 06-17-2022 [facility] Start: 06-10-2022 [facility] Start: 02-22-2022 CT abdomen pelvis w con CT abdomen pelvis w con [facility] Start: 02-22-2022 CT chest w con CT chest w con [facility] Carcinoembryonic Ag [Mass/volume] in Serum or Plasma [facility] Work Phone: Carcinoembryonic Ag [Mass/volume] in Serum or Plasma [facility] Carcinoembryonic Ag [Mass/volume] in Serum or Plasma [facility] Comprehensive metabo lic 1999 panel - Serum or Plasma [facility] Work Phone: Comprehensive metabo lic 1999 panel - Serum or Plasma [facility] Comprehensive metabo lic 1999 panel - Serum or Plasma [facility] Comprehensive metabo lic 1999 panel - Serum or Plasma [facility] CT Abdomen and Pelvi s W contrast IV [facility] Work Phone: CT Abdomen and Pelvi s W contrast IV [facility] CT Abdomen and Pelvi s W contrast IV [facility] CT Abdomen and Pelvi s WO contrast [facility] Work Phone: CT Abdomen and Pelvi s WO contrast [facility] CT Abdomen and Pelvi s WO contrast [facility] CT Chest W contrast IV [facility] Work Phone: CT Chest W contrast IV [facility] CT Chest W contrast IV [facility] CT Chest WO contrast [facility] Work Phone: CT Chest WO contrast [facility] Ferritin [Mass/volum e] in Serum or Plasma [facility] Patient Education Hemorrhoids Co arelis Polyps [facility] Work Phone: [facility] Immunizations Immunization Date Immunization Notes Care Provider Fa cilinorma 07-10-2022 COVID-19 Pfizer (bivalent) Arnie Linda Other [facility]X [facility] [place] Other 07-10-2022 COVID-19 Pfizer (Pediatric) Arnie Linda Other [facility] [place] Other 07-04-2022 influenza virus vaccine, split virus (incl. purified surface antigen) Arnie Linda Other [facility] [place] Other 07-04-2022 influenza, high dose seasonal, preservative-free Arnie Linda Other [facility] [employer] [place] Other 02-07-2022 COVID-19 Pfizer Arnie pedroza Other [facility] [employer] [place] Other 02-07-2022 COVID-19 Vaccine Pfi zer - Documentation Purposes Only Arnie Linda Other [facility] Other 07-28-2021 influenza virus vaccine, split virus (incl. purified surface antigen) Arnie Linda Other [facility] Other 07-15-2021 COVID-19 mRNA, Comirnaty (Pfizer) DO Arnie Linda Work Phone: [facility] 12-03-2020 COVID-19 mRNA, Comirnaty (Pfizer) DO Arnie Linda Work Phone: [facility] 11-12-2020 COVID-19 mRNA, Comirnaty (Pfizer) DO Arnie Linda Work Phone: [facility] 06-30-2020 influenza virus vaccine, split virus (incl. purified surface antigen) Arnie Linda Other [facility] Other 07-19-2019 influenza virus vaccine, split virus (incl. purified surface antigen) Arnie Linda Other [facility] Other 07-17-2018 influenza virus vaccine, split virus (incl. purified surface antigen) Arnie Linda Other [facility] Other 12-25-2017 diphtheria, tetanus toxoids and acellular pertussis vaccine, unspecified formulation Arnie Linda Other [facility] Other 07-24-2017 influenza virus vaccine, split virus (incl. purified surface antigen) Arnie Linda Other [facility] Other 07-12-2016 influenza virus vaccine, split virus (incl. purified surface antigen) Arnie Linda Other [facility] Other 05-26-2016 pneumococcal Conjuga te, unspecified formulation; Translations: [Need for prophylactic vaccination against Streptococcus pneumoniae (pneumococcus)] Arnie Linda Other [facility] Other 05-26-2016 pneumococcal conjuga te vaccine, 13 valent Arnie Linda Other [facility] Other 07-08-2015 influenza virus vaccine, split virus (incl. purified surface antigen) Arnie Linda Other [facility] Other 08-02-2013 tetanus and diphther ia toxoids, adsorbed, preservative free, for adult use (5 Lf of tetanus toxoid and 2 Lf of diphtheria toxoid) Arnie Linda Other [facility] Other 08-02-2013 pneumococcal polysaccharide vaccine, 23 valent Arnie Linda Other [facility] Other 06-27-2012 tetanus and diphther ia toxoids, adsorbed, preservative free, for adult use (5 Lf of tetanus toxoid and 2 Lf of diphtheria toxoid) Arnie Linda Other [facility] Other Payers Date Payer Category Payer Medicare [id number] 1957 Self-pay [id number] 1957 Unknown [id number] 1940 Unknown [id number] 2.16.8 40.1.386008.3.579.2.647 1942 Unknown [id number] 2.16.84 0.1.822762.3.579.2.593 1942 Unknown [id number] 2.16.84 0.1.806182.3.579.2.593 1942 Unknown [id number] 2.16.84 0.1.033804.3.579.2.593 1942 Unknown [id number] 2.16.84 0.1.090076.3.579.2.593 1942 Unknown [id number] 2.16.84 0.1.862603.3.579.2.593 1942 Unknown [id number] 2.16.84 0.1.045348.3.579.2.593 1942 Unknown [id number] 2.16.84 0.1.335836.3.579.2.593 1942 Unknown [id number] 2.16.84 0.1.204252.3.579.2.593 1942 Unknown [id number] 2.16.84 0.1.997604.3.579.2.593 1942 Unknown [id number] 2.16.84 0.1.349568.3.579.2.593 1942 Unknown [id number] 2.16.84 0.1.075404.3.579.2.593 1942 Unknown [id number] 2.16.84 0.1.811942.3.579.2.593 1942 Unknown [id number] 2.16.84 0.1.145444.3.579.2.593 1942 Unknown [id number] 2.16.84 0.1.095502.3.579.2.593 1942 Unknown [id number] 2.16.84 0.1.410966.3.579.2.593 1942 Unknown [id number] 2.16.84 0.1.256414.3.579.2.593 1942 Unknown [id number] 2.16.84 0.1.704934.3.579.2.593 1942 Unknown [id number] 2.16.84 0.1.425464.3.579.2.593 1942 Unknown [id number] 2.16.84 0.1.213625.3.579.2.593 1942 Unknown [id number] 2.16.84 0.1.851104.3.579.2.593 1942 Unknown [id number] 2.16.84 0.1.612095.3.579.2.593 Unknown [id number] 2.16.84 0.1.216933.3.579.2.593 Unknown [id number] 2.16.8 40.1.267869.3.579.2.531 Social History Date Type Detail Facility Start: 06-03-2022 End: 09-01-2023 Tobacco smoking status NHIS Ex-smoker (finding) [facility] Start: 1940 Sex Assigned At Male F [facility] Sex Assigned At Sex Assigned At Bir th [facility] Other Goals Date Patient Goal Desired Activity /State Clinical Notes 08-31-2021 to 12-18-2023 Note Date & Type Note Facility 12-18-2023 Evaluation note Encounter Date Diagnosis Assessment Notes Dec, 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 year old male patient being seen for 3 mo follow up chronic systolic heart failure, dilated cardiomyopathy, and paroxysmal atrial flutter. Had echo and device interrogation recently. Patient denies chest pain, SOB, palpitations, and bleeding on Eliquis. Patient Active Problem List Diagnosis Stage 3 chronic kidney disease (CMS/HCC) Bacteremia Chronic systolic heart failure (CMS/HCC) Dyslipidemia Edema of lower extremity Hyperlipidemia Hypertensive disorder Left ventricular systolic dysfunction Osteomyelitis of vertebra (CMS/HCC) Paroxysmal atrial flutter (CMS/HCC) Proteinuria Type 2 diabetes mellitus (CMS/HCC) COPD (chronic obstructive pulmonary disease) (CMS/HCC) Dilated cardiomyopathy (CMS/HCC) Statin intolerance Stage 4 chronic kidney disease (CMS/HCC) Family History Problem Relation Name Age of Onset Diabetes Mother Heart disease Father Glaucoma Brother Diabetes Maternal Grandmother Clotting disorder Other Social History Tobacco Use Smoking status: Former Types: Cigarettes Quit date: 1981 Years since quittin.9 Smokeless tobacco: Never Substance Use Topics Alcohol use: Yes Comment: OCCASIONAL Drug use: Never CHON Nas is seen in follow-up. He is a 83-year-old man with prior complex medical history including diabetes, hypertension, nonischemic cardiomyopathy and chronic systolic heart failure, nonobstructive coronary artery disease by cardiac catheterization in 2015, hyperthyroidism on methimazole therapy, history of bradycardia and complete heart block and syncope status post dual-chamber pacemaker in January 2020 and most recently upgrade to BiV ICD on 06/12/2023 due to persistently reduced left ventricular systolic function. He also has history of atrial flutter and fibrillation, status post atrial flutter ablation by Dr. Ron Alejandre on 11/13/2019, and subsequently he was back into atrial fibrillation and flutter andcurrently is in longstanding persistent atrial fibrillation. He is maintained on anticoagulation therapy with Eliquis 2.5 mg twice daily adjusted to age and renal function. He is intolerant to statins and he is on ezetimibe therapy. Today he reports that he has been doing reasonably well. He has NYHA class I-II symptoms and mild occasional leg swelling. He has no angina. He has no dizziness and lightheadedness. His blood pressure and heart rate are well-controlled. Review of Systems Cardiovascular: Positive for dyspnea on exertion and leg swelling. Negative for chest pain, irregular heartbeat, orthopnea, palpitations and syncope. Respiratory: Negative for cough and shortness of breath. Musculoskeletal: Negative for arthritis, falls and neck pain. Gastrointestinal: Negative for diarrhea and dysphagia. Neurological: Negative for light-headedness and loss of balance. Objective Visit Vitals BP 108/72 (BP Location: Right arm, Patient Position: Sitting) Pulse 71 Ht 1.803 m (5' 11 ) Wt 96.2 kg (212 lb) SpO2 96% BMI 29.57 kg/m??? Smoking Status Former BSA 2.19 m??? Physical Exam Constitutional: Appearance: He is well-developed. He is not ill-appearing. HENT: Head: Normocephalic and atraumatic. Nose: Nose normal. Eyes: General: No scleral icterus. Pupils: Pupils are equal, round, and reactive to light. Neck: Thyroid: No thyromegaly. Vascular: No JVD. Cardiovascular: Rate and Rhythm: Normal rate and regular rhythm. Pulses: Radial pulses are 2+ on the right side and 2+ on the left side. Heart sounds: Normal heart sounds. No murmur heard. No friction rub. No gallop. Pulmonary: Effort: Pulmonary effort is normal. No respiratory distress. Breath sounds: Normal breath sounds. No wheezing or rales. Chest: Chest wall: No tenderness. Abdominal: General: Bowel sounds are normal. There is no distension. Palpations: Abdomen is soft. Tenderness: There is no abdominal tenderness. Musculoskeletal: General: No swelling. Cervical back: Neck supple. Right lower le+ Pitting Edema present. Left lower le+ Pitting Edema present. Skin: General: Skin is warm and dry. Neurological: General: No focal deficit present. Mental Status: He is alert and oriented to person, place, and time. Psychiatric: Mood and Affect: Mood normal. Behavior: Behavior is cooperative. Judgment: Judgment normal. Allergies Allergies Allergen Reactions Tihenzf-Rpr-Mef Reductase Inhibitors Tramadol Medications Current Outpatient Medications: allopurinol (Zyloprim) 100 mg tablet, Take 1 tablet by mouth in the morning., Disp: , Rfl: amLODIPine (Norvasc) 10 mg tablet, TAKE 1 TABLET BY MOUTH DAILY, Disp: 90 tablet, Rfl: 3 apixaban (Eliquis) 2.5 mg tablet, Take 1 tablet (2.5 mg) by mouth in the morning and at bedtime., Disp: 180 tablet, Rfl: 3 bumetanide (Bumex) 2 mg tablet, Take 2 mg by mouth in the morning., Di (more content not included)...[facility]11-12-2023 Evaluation note* Encounter Date Diagnosis Assessment Notes Treatment Notes Treatment Clinical Notes Aug, Hyperuricemia (ICD-1 0 - E79.0) [facility] Other [id number] Evaluation note* Encounter Date Diagnosis Assessment Notes Treatment Notes Treatment Clinical Notes Aug, Nonischemic dilated cardiomyopathy (ICD-10 - I42.0) ECHOCARDIOGRAM - 02/2023 - dilated LV w/ LVEF is 25%. - right ventricle is normal in size with mildly reduced systolic function. - biatrial dilatation. - Mild to moderate mitral regurgitation. - Mild tricuspid regurgitation. - RVSP 61 mmHg. Daily weights, fluid/salt restriction. Continue w/ healthy diet and exercise. Aug, Chronic HFrEF (heart failure with reduced ejection fraction) (ICD-10 - I50.22) Instructed on low salt diet, exercise and daily weights. Instructed to notify office for any unexpected weight gain > 3lbs and/or increased dyspnea, difficulty breathing during sleep, worsening lower extremity swelling, chest pain or lightheadedness. Reviewed GDMT w/ beta blockers, TOMMY/ARB/ARNI, MRA and SGLT-2 Aug, Stage 4 chronic kidney disease (ICD-10 - N18.4) The patient is instructed on adequate control of hypertension and diabetes, if appropriate. They are also educated on the associated risks of NSAIDs and PPI use with kidney disease. They were instructed on adequate fluid balance and to avoid dehydration. 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 - due to iodine contrast, Amiodarone or idiopathic Continue Methimazole Recheck T4, T3 and TSH Aug, Pulmonary hypertension (ICD-10 - I27.20) Aug, Paroxysmal atrial fibrillation (ICD-10 - I48.0) This patient is in NSR or rate controlled. This patient is anticoagulated to prevent thromboembolic events. They are maintaining regular scheduled appts with their engineering and operations director. No bleeding complications Aug, Mucopurulent chronic bronchitis (ICD-10 - J41.1) Stable w/ expected HERNANDEZ. Continue triple therapy. Rare use of MAHAMED No ER visits for AE Aug, Primary hypertension (ICD-10 - I10) This patient is instructed to consume a healthy, low-fat, low-salt diet. They are also encouraged to continue exercise to achieve/maintain a normal BMI. Aug, Obstructive sleep apnea (ICD-10 - G47.33) This patient is aware of the benefits associated with MOLINA: With continued use, the patient reduces the risk for OK, CVA, HTN, cardiac dysrhythmias and sudden cardiac deaths.The patient is also aware of the association between MOLINA and morning headaches, daytime somnolence, fatigue and obesity, which also has been improved with continued use.The patient is compliant with treatment, wearing the equipment every night for greater than 4 hours.The patient is instructed to continue use of the CPAP for MOLINA treatment. Aug, Malignant neoplasm of ascending colon (ICD-10 - C18.2) UTD w/ surveillance scopes. Next scope scheduled at year 3 Aug, Hyperlipidemia type II (ICD-10 - E78.01) Instructed on diet and exercise with continued statin therapy.Discussed the beneficial effects of lowering cholesterol in reducing the risk for cerebrovascular and cardiovascular disease. [facility] Other 09-15-2023 NoteCardiology Clinic Note Subjective Nas Ren is a 83 y.o. year old male patient with HFrEF, NICM likely d/t afib, HTN, CAD, h/o of Aflutter s/p ablation and CHB s/p DC PPM with BiV upgrade, CKD, and hyperlipidemia seen in follow-up. Patient Active Problem List Diagnosis Stage 3 chronic kidney disease (CMS/HCC) Bacteremia Chronic systolic heart failure (CMS/HCC) Dyslipidemia Edema of lower extremity Hyperlipidemia Hypertensive disorder Left ventricular systolic dysfunction Osteomyelitis of vertebra (CMS/HCC) Paroxysmal atrial flutter (CMS/HCC) Proteinuria Type 2 diabetes mellitus (CMS/HCC) COPD (chronic obstructive pulmonary disease) (CMS/HCC) Dilated cardiomyopathy (CMS/HCC) Statin intolerance Family History Problem Relation Name Age of Onset Diabetes Mother Heart disease Father Glaucoma Brother Diabetes Maternal Grandmother Clotting disorder Other Social History Tobacco Use Smoking status: Former Types: Cigarettes Quit date: 1981 Years since quittin.7 Smokeless tobacco: Never Substance Use Topics Alcohol use: Yes Comment: OCCASIONAL Drug use: Never HPI Nas Ren is a 82 y.o. male here for Atrial Flutter, Congestive Heart Failure, and Coronary Artery Disease Update: 09/20/2022 Nas is here for 6-month follow-up. States he got his thyroid under control, from which he lost weight. It does show 14 pound weight gain but contributes this due to his thyroid issue resolving and being able to keep on weight. He denies chest pain shortness of breath edema fatigue or decrease in activity level. He has recently been seeing a drilling field operator due to increased creatinine levels, he is a 2.7 per recent labs. Him and both state drilling field operator may refer him to a dialysis specialist. He continues to urinate on a regular basis and reviewing labs he is not holding onto electrolytes. He states he is repeating his labs this week per the drilling field operator. Update: 06/30/2023 Here for routine follow-up Was seen last week by Dr. Sanders Doing well without dyspneic symptoms or chest pain Scheduled for device check on 08/08 Review of Systems Cardiovascular: Positive for dyspnea on exertion and leg swelling. Negative for chest pain, irregular heartbeat, near-syncope, orthopnea, paroxysmal nocturnal dyspnea and syncope. Objective Visit Vitals BP 118/74 (BP Location: Left arm, Patient Position: Sitting) Pulse 69 Ht 1.803 m (5' 11 ) Wt 97.5 kg (215 lb) SpO2 94% BMI 29.99 kg/m??? Smoking Status Former BSA 2.21 m??? Physical Exam General: Awake, alert, good spirits. NAD Pulm: Breath sounds clear to ascultation bilaterally with no wheeze, crackles or rhonchi Cards: Regular rate and rhythm, S1, S2. No S3 or S4 gallop. Murmur: none Abd: Soft, Nontender, physiologic bowel sounds are present Extr: Lower extremity edema: trace. Skin: warm, dry, well perfused Neuro: A&Ox3, No gross deficits Allergies Allergies Allergen Reactions Uerqgrq-Jay-Cpe Reductase Inhibitors Tramadol Medications Current Outpatient Medications: allopurinol (Zyloprim) 100 mg tablet, Take 1 tablet by mouth in the morning., Disp: , Rfl: amLODIPine (Norvasc) 10 mg tablet, TAKE 1 TABLET BY MOUTH DAILY, Disp: 90 tablet, Rfl: 3 apixaban (Eliquis) 2.5 mg tablet, Take 2.5 mg by mouth in the morning and at bedtime., Disp: , Rfl: bumetanide (Bumex) 2 mg tablet, Take 2 mg by mouth in the morning., Disp: , Rfl: cholecalciferol, vitamin D3, 100 mcg (4,000 unit) capsule, Take 1 capsule every day by oral route., Disp: , Rfl: doxycycline (Adoxa) 100 mg tablet, Take 1 tablet (100 mg) by mouth in the morning and at bedtime for 21 days. Take with a full glass of water and do not lie down for at least 30 minutes after, Disp: 42 tablet, Rfl: 0 ezetimibe (Zetia) 10 mg tablet, Take 1 tablet (10 mg) by mouth at bedtime., Disp: 90 tablet, Rfl: 3 hydrALAZINE (Apresoline) 100 mg tablet, Take 1 tablet (100 mg) by mouth in the morning, afternoon, and at bedtime., Disp: 270 tablet, Rfl: 3 isosorbide dinitrate (Isordil) 10 mg tablet, TAKE 1 TABLET BY MOUTH 3 TIMES DAILY, Disp: 270 tablet, Rfl: 3 methIMAzole (Tapazole) 5 mg tablet, Take 2.5 mg by mouth once daily as directed., Disp: , Rfl: metoprolol succinate XL (Toprol-XL) 100 mg 24 hr tablet, take 1 tablet by mouth once daily, Disp: 90 tablet, Rfl: 2 niacin 500 mg tablet, Take 1 tablet every day by oral route., Disp: , Rfl: potassium chloride CR (Klor-Con) 10 mEq ER tablet, Take 1 tablet every day by oral route for 30 days., Disp: , Rfl: Trelegy Ellipta 200-62.5-25 mcg blister with device, INHALE 1 INHALATION BY MOUTH IN THE MORNING, Disp: 180 each, Rfl: 3 Recent Labs 02/14/2023 TC 164, HDL 41, LDL 104.2, Trig 94 01/02/2023 Sodium 140, potassium 4.3, Cl 100, CO2 33.2, BUN 51, Scr 2.31, eGFR 27% WBC 8.1, Hgb 12.4, hematocrit 37.4, platelets 209 09/09/2022 Sodium 138, potassium 3.5, chloride 99, CO2 32.4, (more content not included)... [facility]09-15-2023 NotePatient here for 2 mo follow up CHF per VIGNESH Alvarado. Denies chest pain, SOB, LE edema, and bleeding on Eliquis. Review of Systems Cardiovascular: Negative for paroxysmal nocturnal dyspnea and syncope. All other systems reviewed and are negative.[facility] 06-23-2023 NoteUT CARDIOLOGY PROGRESS NOTE HPI: CHON Ren is a 82 y.o. year old male patient with chronic systolic heart failure, stage III chronic kidney disease, atrial flutter s/p ablation 10/[address] Alejandre, [facility] s/p DC PPM and hypertension. He is s/p BiV upgrade on 06/12/2023. He presents today for follow-up. Overall, he states that he is doing very well. Patient adamantly denies any cardiac complaints or concerns. Patient denies any chest pain or shortness of breath. Patient denies any lower extremity edema, orthopnea, or proximal nocturnal dyspnea. No near-syncope or syncope. No dizziness or lightheadedness. He denies any fevers or chills. No discharge from site of incision. Incision is clean, dry, and intact. Social History Tobacco Use Smoking status: Former Types: Cigarettes Quit date: 1981 Years since quittin.7 Smokeless tobacco: Never Substance Use Topics Alcohol use: Yes Comment: OCCASIONAL Drug use: Never Allergies Allergen Reactions Qmliszt-Ref-Gqs Reductase Inhibitors Tramadol Medications: Current Outpatient Medications on File Prior to Visit Medication Sig Dispense Refill allopurinol (Zyloprim) 100 mg tablet Take 1 tablet by mouth in the morning. amLODIPine (Norvasc) 10 mg tablet TAKE 1 TABLET BY MOUTH DAILY 90 tablet 3 apixaban (Eliquis) 2.5 mg tablet Take 2.5 mg by mouth in the morning and at bedtime. bumetanide (Bumex) 2 mg tablet Take 2 mg by mouth in the morning. cholecalciferol, vitamin D3, 100 mcg (4,000 unit) capsule Take 1 capsule every day by oral route. doxycycline (Adoxa) 100 mg tablet Take 1 tablet (100 mg) by mouth in the morning and at bedtime for 21 days. Take with a full glass of water and do not lie down for at least 30 minutes after 42 tablet 0 ezetimibe (Zetia) 10 mg tablet Take 1 tablet (10 mg) by mouth at bedtime. 90 tablet 3 hydrALAZINE (Apresoline) 100 mg tablet Take 1 tablet (100 mg) by mouth in the morning, afternoon, and at bedtime. 270 tablet 3 isosorbide dinitrate (Isordil) 10 mg tablet TAKE 1 TABLET BY MOUTH 3 TIMES DAILY 270 tablet 3 methIMAzole (Tapazole) 5 mg tablet Take 2.5 mg by mouth once daily as directed. metoprolol succinate XL (Toprol-XL) 100 mg 24 hr tablet take 1 tablet by mouth once daily 90 tablet 2 niacin 500 mg tablet Take 1 tablet every day by oral route. potassium chloride CR (Klor-Con) 10 mEq ER tablet Take 1 tablet every day by oral route for 30 days. Trelegy Ellipta 200-62.5-25 mcg blister with device INHALE 1 INHALATION BY MOUTH IN THE MORNING 180 each 3 No current facility-administered medications on file prior to visit. Physical Exam: BP 123/71 (BP Location: Left arm, Patient Position: Sitting) Pulse 70 Ht 1.803 m (5' 11 ) Wt 97.1 kg (214 lb) SpO2 97% BMI 29.85 kg/m??? Physical exam: None. above VS reported by pt/ General: Awake, alert, good spirits. NAD Able to speak without increased work of breathing or apparent HERNANDEZ. Labs: Chemistry Lab Results Component Value Date/Time NA 142 06/12/2023 0725 K 4.0 06/12/2023 0725 CL 103 06/12/2023 0725 CO2 29 06/12/2023 0725 CO2 25 04/02/2022 0610 BUN 55 (H) 06/12/2023 0725 CREATININE 2.51 (H) 06/12/2023 0725 GLU 93 04/02/2022 0610 Lab Results Component Value Date/Time CALCIUM 9.3 06/12/2023 0725 ALKPHOS 82 05/23/2021 0344 AST 12 (L) 05/23/2021 0344 ALT 14 05/23/2021 0344 BILITOT 0.5 05/23/2021 0344 Lab Results Component Value Date CHOL 173 08/13/2019 Lab Results Component Value Date HDL 28 08/13/2019 No results found for: LDLCALC No results found for: LDLDIRECT Lab Results Component Value Date LDL CHOLESTEROL 117 08/13/2019 Lab Results Component Value Date TRIG 140 08/13/2019 No components found for: CHOLHDL Lab Results Component Value Date TSH <0.01 (LL) 03/31/2022 Lab Results Component Value Date BNP 401 (H) 08/13/2019 No results found for: HGBA1C 04/21/23 labs: Renal function: 04/21/23 Creat 2.65, bun 54, K3.8 03/3023 Creat 2.66, BUN 53, K+ 3.9 02/10/23 Creat 2.3, BUN 51, K+ 4.3 09/09/22 Creat 2.77, BUN 50, K+ 3.5 Last lab values have been reviewed CV Testin02/28/23 TTE ECHO ([facility]) Echo: 03/07/2022 Global left ventricular systolic function is moderately reduced; visually estimated ejection fraction of 30 to 35% Abnormal septal motion Moderate dilatation of left ventricle. Moderate left ventricular hypertrophy. Grade 2 diastolic dysfunction Biatrial enlargement The right ventricle is mildly dilated with normal function Moderate tricuspid regurgitation. Moderate elevated right-sided pressures. RVSP 57 mmHg Mild mitral regurgitation SUSAN: 05/24/2021 Left ventricle: The left ventricle is normal in size. Global left ventricular systolic function is moderately reduced. The EF is 35% visually. Right ventricle: The right ventricle is normal in size. Right ventricular systolic function is within normal range Left Atrium appendage: Normal left atria (more content not included)... [facility]09-08-2023 NotePatient here for wound check s/p BiV upgrade on 06/12/[address] Degroot.[facility] 06-22-2023 Evaluation note* Encounter Date Diagnosis Assessment Notes Treatment Notes Treatment Clinical Notes Jun, Hypothyroidism due t o medication (ICD-10 - E03.2) Generate Other 08-30-2023 NotePt's called and was worried about blood on his dressing from Pacemaker generator exchange 3 days ago. Pt evaluated in office and dressing to Lt upper chest is Clean dry and intact, With noted ecchymosis surrounding incision site, No hematoma erythema or calor noted. Patient states site is nontender to Palpation. Currently denies fever, chills, And overall states he feels well Roxanne Sanchez SALES FLOOR TEAM LEADER Division of Cardiology, [facility]- [phone] Pager- [phone] Email- [email or web address] NoteBIV/JOD-W-ANFZGIK PROCEDURE NOTE DATE OF PROCEDURE: 06/12/2023 PERFORMING PHYSICIAN: Dr. Mariusz Degroot CONSENT: Patient LOCATION: EP Lab PROCEDURE PERFORMED: 1. Implantation of Biventricular ICD (Biotronik). 2. Explantation of previously implanted pacemaker generator (Biotronik). 4. Coronary sinus venogram. 5. ICD pocket revision. 6. U/S access 7. Fluroscopy 8. Sedation. INDICATIONS: 1. Cardiomyopathy with no reversibe cause 2. Dilated cardiomyopathy 3. Chronic RV pacing (100%) 4. Chronic SHF NYHA Class III PROCEDURAL SEDATION: Versed and Fentanyl. Moderate sedation was administered by the sedation nurse under my supervision and noted in the CVL log. Intraprocedural face to face sedation time: 90min. Monitoring: Cardiac telemetry, Blood pressure, continuous pulse oxymetry. FLUROSCOPY: 7.4minutes/ 62mGy. EBL: 25cc SPECIMEN REMOVED: None PROCEDURAL DETAILS: Patient was placed in trendelenberg position and ultrasound as well as venogram was used to evaluate the patency of left axillary vein. Once it was determined that the vein was patient, I decided to proceed with opening of the pocket. Local infiltration of 1% Lidocaine was performed, and an incision was created in the left upper chest. Dissection was then performed using cautery down to the capsule of the previously implanted device. Two venous access was acquired under ultrasound guidance as well as fluroscopy and therafter sheath was placed. RV ICD lead was advanced into the RVOT and with manipulation, I got the lead to position in the lower mid septum. This was chosen and the sheath split and the lead secured in the pocket using three 1-0 Silk sutures. Next, I proceeded to place an LV lead. The [place] sheath was advanced, and with the wire to the RV. Accruit steer Ep cathter was used to access into the body of the CS. The outer cannula was then advanced into the CS body. The EP catheter was removed and I used an amplatz wire for support. Venogram was performed. [place] catheter was advanced and venogram was performed. This revealed a good lateral vein, but other than that, a small posterolateral vein was noted. I decided to access the lateral vein. After this, S shaped quadripolar LV lead was passed over a 0.014 wire into the lateral vein easily. However, capture was noted at 3 V from 3 and 4. Given this, I decided to pull back the lead to see whether there were better thresholds in more midbasal area also to avoid phrenic capture. The [place] sheath was slit and the lead secured with three 1-0 silk sutures. Following this, the BiV pacing was performed, on which the QRS configuration was noted to be approximately 130 msec duration, which I felt was a good result. The pocket was revised for an ICD. Pocket hemostasis was secured and it was then copiously and vigorously irrigated with antibiotic solution. The old atrial lead was attached to the new device and old RV pacing lead was capped. The leads were wrapped under the device and the device was placed in the pocket and the device tacked to the underlying capsule as well as muscle. The pocket was closed in layers: subcutaneous layer using 2-0 Vicryl and skin using 2-0 Monocryl. Occlusive dressing was placed on top. Lead parameters were then rechecked through the device as noted below. The patient was returned to the short stay room for post procedural observation. No immediate procedural complications were noted. POST PROCEDURE EXAM: Patient was hemodynamically stable. COMPLICATIONS: None. IMPRESSION: 1. Successful BiV-ICD implantation with excellent pacing and sensing parameters, 2. Explantation of previously implanted pacemaker generator. RECOMMENDATIONS: 1. Occlusive dressing to be removed after 7 days. 2. Do not wet the incision for 7 days. 3. No lifting heavy weights using arm on the same side. 4. Do not lift elbow above the shoulder on the same side for 4-6 weeks. 5. No driving for 1 wk. 6. F/u in device clinic 2 week from discharge or sooner for any concerns. 7. Doxycycline 100mg bid x 3 weeks Mariusz Degroot MD [facility]rophysiologyUn[facility]08-28-2023 Note Patient: Nas Ren Procedure Information Date/Time: 06/12/23 0830 Procedure: Biventricular ICD upgrade Location: [facility] / [facility] (Cath) Providers: Mariusz Degroot MD Clinical information reviewed: Tobacco Allergies Meds Med Hx Surg Hx Fam Hx Soc Hx Physical Exam Airway Mallampati: II TM distance: >3 FB Cardiovascular Dental Pulmonary Abdominal Anesthesia Plan ASA 2 CSE Anesthetic plan and risks discussed with patient. Use of blood products discussed with patient who. Additional [facility]sUn[facility]-2023 Note [facility] CARDIOLOGY PROGRESS NOTE Heart [facility] V[facility] HPI: Nas Ren is a 82 y.o. male with audio only virtual visit, with on speakerphone. says does not have capability for video/audio content. The patient was notified that using 3rd republican telecommunication application (e.g., Reachable) is not HIPPA compliant and may carry some privacy risks. Yes The visit was conducted by telephone only between patient and provider for a virtual visit. Verbal consent to provide and bill this service was obtained on 04/25/23. No signature was obtained due to the COVID-19 pandemic. Patient Location: Patient Home Provider location: office I spent 25 minutes of total time on the day of the visit. This time was spent preparing for the visit, obtaining and reviewing any outside history/data, taking a history, performing an exam/evaluation, counseling and educating patient/family about the diagnosis and plan, performing medical decision making, referring to and communicating with other health care referrals, independently interpreting results and documenting in the EMR, and coordinating care. Please see the additional documentation in this note for specific details. HPI 02/13/23 Visit Reji Song NP: Nas Ren is a 82 y.o. year old male patient with chronic systolic heart failure, stage III chronic kidney disease, atrial flutter s/p ablation 10/[address] Alejandre, [facility] s/p DC PPM and hypertension seen in follow-up. He was last seen by Guy Hutchinson CNP in 09/2022. He presents today with daughter. He reports feels the best he has in quite a while. Denies chest pain or worsening dyspnea on exertion. Appeared compensated, NYHA III, nephrology for diuresis management. Restarted Eliquis 5mg bid as last device interrogation 01/2023 showed underlying atrial fibrillation. Later ASA stopped for easy bleeding after hitting his arm. 04/04/[address] Degroot: Echocardiogram on 02/10/2020 showed EF of 30 to 35%. A repeat echo 06/25/2020 shows EF of 40%. He is currently on amiodarone as well as Eliquis. Plan for MECHANICAL PROJECT ENGINEER-D and FU with AVN ablation, reduced eliquis to 2.5mg bid, and if unable to tolerate consider Watchman. Scheduled for 06/12/23 04/25/23 today audio only virtual visit: Concerned about implication on his heart for wait time for BiV-D upgrade to his DC PPM for MECHANICAL PROJECT ENGINEER-D followed by AVN ablation, presently scheduled 06/12/23. Will see if can get on a list for cancellations. Patient says LE edema at end of March resolved with burst therapy Bumex 1mg bid with 4-5# weight loss, maintaining 214# with Bumex 1mg daily. BP at goal at PCP office. Using CPAP, very minimal if any LE edema. Compliant with diet/fluid restrictions and meds. Remains fatigued, with stable HERNANDEZ, no CPOE, positional lightheadedness, palpitations, racing heart beats, syncope or near syncope, orthopnea, PND, GI or other bleeding, 7/7 labs with stable renal function and 'lytes. PLAN: See if can get on list for cancellations, but would need to hold Eliquis prior to procedure; otherwise no med changes. Social History Tobacco Use Smoking status: Former Types: Cigarettes Quit date: 1981 Years since quittin.5 Smokeless tobacco: Never Substance Use Topics Alcohol use: Yes Comment: OCCASIONAL Drug use: Never Allergies Allergen Reactions Ynwwiny-Ncg-Nwo Reductase Inhibitors Tramadol Medications: Current Outpatient Medications on File Prior to Visit Medication Sig Dispense Refill allopurinol (Zyloprim) 100 mg tablet Take 1 tablet by mouth in the morning. amLODIPine (Norvasc) 10 mg tablet Take 10 mg by mouth in the morning. apixaban (Eliquis) 5 mg tablet Take 1 tablet (5 mg) by mouth in the morning and at bedtime. (Patient taking differently: Take 2.5 mg by mouth in the morning and at bedtime.) 180 tablet 3 bumetanide (Bumex) 1 mg tablet Take 1 mg by mouth in the morning. cholecalciferol, vitamin D3, 100 mcg (4,000 unit) capsule Take 1 capsule every day by oral route. Contour Next Test Strips strip use 1 TEST STRIP to TEST BLOOD SUGAR once daily ezetimibe (Zetia) 10 mg tablet Take 1 tablet (10 mg) by mouth at bedtime. 90 tablet 3 hydrALAZINE (Apresoline) 100 mg tablet Take 1 tablet (100 mg) by mouth in the morning, afternoon, and at bedtime. 270 tablet 3 isosorbide dinitrate (Isordil) 10 mg tablet TAKE 1 TABLET BY MOUTH 3 TIMES DAILY 270 tablet 3 methIMAzole (Tapazole) 5 mg tablet Take 2.5 mg by mouth once daily as directed. metoprolol succinate XL (Toprol-XL) 100 mg 24 hr tablet Take 1 tablet (100 mg) by mouth once daily as directed. Do not crush or chew. 90 tablet 2 niacin 500 mg tablet Take 1 tablet every day by oral route. potassium chloride CR (Klor-Con) 10 mEq ER tablet Take 1 tablet every day by oral route for 30 days. Trelegy Ellipta 200-62.5-25 mcg blister with device INHALE 1 INHALATION BY MOUTH IN THE MORNING 180 each 3 No current facility-administered medications on file prior to visit. 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 - right ventricle is normal in size with mildly reduced systolic function. - biatrial dilatation. - Mild to moderate mitral regurgitation. - Mild tricuspid regurgitation. - RVSP 61 mmHg. LVEF < 35% Scheduled for ICD placement Presently has Dual chamber PM f/u Cardiology Apr, Chronic HFrEF (heart failure with reduced ejection fraction) (ICD-10 - I50.22) Instructed on low salt diet, exercise and daily weights. Instructed to notify office for any unexpected weight gain > 3lbs and/or increased dyspnea, difficulty breathing during sleep, worsening lower extremity swelling, chest pain or lightheadedness. Reviewed GDMT w/ beta blockers, TOMMY/ARB/ARNI, MRA and SGLT-2 Recently increased weight and edema - weight up 5lbs Notified cardiology clinic and instructed to increase Bumex - he has lost 5 lbs - no visible edema - recheck BMP, BNP Apr, Stage 4 chronic kidney disease (ICD-10 - N18.4) The patient is instructed on adequate control of hypertension and diabetes, if appropriate. They are also educated on the associated risks of NSAIDs and PPI use with kidney disease. They were instructed on adequate fluid balance and to avoid dehydration. 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 Elevated TSH w/ normal T4/T3 No obvious symptoms of low thyroid Apr, Mucopurulent chronic bronchitis (ICD-10 - J41.1) Continue triple therapy No ER visits for AECOPD UTD w/ vaccinations Apr, Malignant neoplasm of ascending colon (ICD-10 - C18.2) No s/s recurrence. UTD w/ surveillance scopes Apr, Primary hypertension (ICD-10 - I10) This patient is instructed to consume a healthy, low-fat, low-salt diet. They are also encouraged to continue exercise to achieve/maintain a normal BMI. Apr, Obstructive sleep apnea (ICD-10 - G47.33) This patient is aware of the benefits associated with MOLINA: With continued use, the patient reduces the risk for OK, CVA, HTN, cardiac dysrhythmias and sudden cardiac deaths.The patient is also aware of the association between MOLINA and morning headaches, daytime somnolence, fatigue and obesity, which also has been improved with continued use.The patient is compliant with treatment, wearing the equipment every night for greater than 4 hours.The patient is instructed to continue use of the CPAP for MOLINA treatment. Apr, Hyperlipidemia type II (ICD-10 - E78.01) Instructed on diet and exercise.Discussed the beneficial effects of lowering cholesterol in reducing the risk for cerebrovascular and cardiovascular disease. Recently added Zetia Apr, Paroxysmal atrial fibrillation (ICD-10 - I48.0) This patient is rate controlled. This patient is anticoagulated to prevent thromboembolic events. They are maintaining regular scheduled appts with their engineering and operations director. No bleeding compliations Initiated on [place] Other 06-30-2023 NotePts called that pt's leg swelling is worsening, continues to take bumex 1 mg daily. Ordered bmp today to assess renal function, he is known CKD 3 and last CR was 2.31- which is typical for him. He does see nephrology for CKD. Instructed him to take bumex 1mg bid for the next 3 days, repeat another BMP in 1 week and staff to schedule him for close F/U in clinic. Roxanne Sanchez SALES FLOOR TEAM LEADER Division of Cardiology, [facility]- [phone] Pager- [phone] Email- [email or web address] NoteUT Electrophysiology Consult Note Reason for visit: Afib and dilated CMP. Pt previously was taken off AC as per his request and was monitored with device check. When this picked up AF, he was started on DOAC. He has lowered dose to 2.5mg bid He has 100% RV pacing and has NYHA Class III symptoms. EKG: V pacing. Prior HPI: Nas Ren is a 82 y.o. year old with past medical history of h/o of Aflutter s/p ablation and CHB s/p PPM has been known to have CMP. Patient had undergone atrial flutter ablation on 11/13/[address] Alejandre. He had initially presented in sinus rhythm and following ablation bidirectional block was noted as per the dictation. He was noted to have a prolonged HV interval of 110 ms recently concern of infrahisian disease. He was brought back to [facility] on 02/12/2020 due to what was discussed as a complete heart block and subsequently underwent a dual-chamber pacemaker with a Biotronik device by Dr. Alejandre. Echocardiogram that was performed on 02/10/2020 showed EF of 30 to 35%. A repeat one that was performed on 06/25/2020 shows EF of 40%. He is currently on amiodarone as well as Eliquis. Device check that was performed on 01/18/2021 reveals no evidence of atrial fibrillation but evidence of atrial pacing 81% of the time and 100% RV pacing. Trasnmisison today confirms no AF since implant. EKG performed on EKG on 02/09/2020 at 11:33 AM shows sinus rhythm with underlying right bundle branch block 08/13/2019 shows long RP tachycardia with ventricular rate of 106 05/04/2016 CVl CORONARY ANGIOGRAPHY: This is a right-dominant circulation. Left main: This arises from the left coronary cusp. It bifurcates into left anterior descending and circumflex vessels. Left main is angiographically free of disease. Left anterior descending: This has 20% to 30% mid segment tubular narrowing, but no obstructive lesions. Circumflex vessel: This has 30% mid segment stenosis, but no obstructive lesions. Right coronary artery: This arises from the right coronary cusp. It is a large and dominant vessel. It has minimal luminal irregularities but no obstructive lesions. LIMITED RIGHT FEMORAL ANGIOGRAPHY: This initially showed access to be in the right common femoral artery just above the femoral bifurcation. Repeat access was in the mid right common femoral artery. There were no obstructive lesions noted in the femoral artery or its proximal branches. SUMMARY OF THE FINDINGS: 1. Mild 2-vessel coronary artery disease with 30% mid circ and 20% to 30% mid LAD narrowings, but no obstructive lesions. 2. Mildly to moderately elevated filling pressures. 3. Mild pulmonary hypertension. 4. Preserved cardiac output and cardiac index. 5. Uncontrolled systemic hypertension Echo 02/10/2020 Left Ventricle: The left ventricle is mildly enlarged. EF range is estimated at 30 % -35 %. Left ventricular wall thickness is increased. No thrombus is identified in the left ventricle. Right Ventricle: The right ventricle is normal in size. Normal right ventricular systolic function. Unable to assess right sided pressures due to lack of measurable tricuspid regurgitation. Left Atrium: The left atrium appears normal in size. 11/25/2019 Echo Global left ventricular systolic function is moderately to severely reduced (Visually estimated EF 40%). Diffuse global hypokinesis. Apical Dyskinesis. Doppler studies suggest mildly elevated right sided pressures. Possible thrombus noted in the left ventricular apex would recommend follow up TTE with definity for further evaluation Compared to the previous study 11/06/19 the ejection fraction appears similar with suspicion for some degree of overestimation of ejection fraction on the prior 3D EF calculation 11/06/2019 ECHO Global left ventricular systolic function is at lower limits of normal. Normal right ventricular systolic function. The right ventricle is mildly enlarged. Calculated left ventricular ejection fraction is 50% Compared to the previous study of 08/14/19 the EF is significantly better (25-30% to 50%). . Review of Systems Constitutional: Negative for activity change and fatigue. Respiratory: Negative for chest tightness, shortness of breath and wheezing. Cardiovascular: Negative for chest pain, palpitations, orthopnea, leg swelling, syncope and PND. Neurological: Negative for dizziness, syncope, weakness and light-headedness. All other systems reviewed and are negative. PMH: History reviewed. No pertinent past medical history. PSH: Past Surgical History: Procedure Laterality Date CARDIAC CATHETERIZATION 05/16/2018 CARDIAC CATHETERIZATION 05/04/2016 CARDIAC CATHETERIZATION 05/03/2016 CARDIAC CATHETERIZATION 03/30/2016 CT GUIDED PERCUTANEOUS PERITONEAL OR RETROPERITONEAL FLUID COLLECTION DRAINAGE 05/27/2021 CT GUIDED PERCUTANEOUS PERITONEAL OR RETROPERITONEAL FLUID COLLECTION DRAINAGE BENDER CONVERSION INSERT / REPLACE (more content not included)...[facility]05-30-2023 Evaluation note* Encounter Date Diagnosis Assessment Notes Treatment Notes Treatment Clinical Notes February, Hypothyroidism due t o medication (ICD-10 - E03.2) Generate Other 05-19-2023 Progress note Author Leigha Nelson [facility] March 03, 2023 2:31pm Note Date/Time March 03, 2023 2:21p m [place] [address] Hem/Onc Follow Up Note - OP Signed Patient: Nas Ren MR#: [id number] : 1940 Acct:[id number] Age/Sex: 82 / M Type: REG RCR Copies to: MD Arnie Lui DO Timothy J Adamowicz, ALESSANDRA, DO~ Date of Service: 03/03/2023 Time of Service: 14:20 - Assessment & Plan (1) Colon cancer Plan: T2 N0 M0, stage I colon cancer resected in late 2020. Did not require adjuvant chemotherapy The patient has a brother who of colon cancer. The patient's son has Glo-Blackfan anemia. The patient has been tested for the same genetic mutation and is negative. [facility] colorectal germline panel was negative. No evidence of disease on CT imaging in February 2022. We will scan him every 3 to 6 months for 2 years and yearly through year 5. He should probably have another colonoscopy in late 2021 or early 2022. Will continue to monitor CEAs as well. May 2022 CEA WNL/stable. CT scans with no evidence of recurrence aug 2022 scans no evidence of disease. repeat colonoscopy in jul 2022 was with a few polyps. recommend repeat colonoscopy in jul 2023. February [address] scans without changes/concerns. Labs remain stable including CEA. Iron deficiency anemia d/t chronic blood loss, malabsorption has been on oral iron for years May 2022 IV Injectafer x 2 doses. February 2023 iron studies ok. Follow Up Instructions: cbc, cmp, cea in 6mo CT c/a/p without contrast 6 mo follow-up in 6mo after labs, scans - History of Present Illness Chief Complaint: Patient is here for a 6 month follow up with labs and CT scans for review. No concerns voiced at this time. HPI: 81-year-old male previously cared for by Dr. Shultz Past medical history includes COPD, type 2 diabetes, stage III renal disease, history of atrial fibrillation status post ablation, hypertension, hyperlipidemia, chronic anemia,type 2 diabetes, gout, heart disease. He has a pacemaker that was placed in January 2020. Outpatient medications include metoprolol, Imdur, Bumex, hydralazine, aspirin, niacin, allopurinol, iron, amlodipine, benazepril, clonidine, carvedilol, Tradjenta, Pulmicort, Anoro. presented in late 2020 presented to the hospital with a streptococcal septicemia. 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 Psoas abscesses drained by interventional radiology on 05/27. In late June he completed 6 weeks of IV ceftriaxone. Ortho spine recommended conservative management of presumed lumbar discitis/osteomyelitis. Work-up included a colonoscopy and note was made of a malignant polyp. 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 0 of 17 lymph nodes were involved, T2N0. Preoperatively CT scan was done and there was noted a small hypodensity in the dome of the liver thought to be a cyst. He has a significant family history of colon cancer. He had a brother who of colon cancer. Also his son has Glo-Blackfan anemia and Dr. Shultz took care of him for many years. The son's daughter also has Glo-Blackfan anemia. and Mrs. Ren were tested for Glo-Blackfan anemia genetic mutation but this was negative. He had seen Dr. Shultz. Did not require chemotherapy. 02/25/22 recent diagnosis graves disease and hyperthyroid symptoms. He is due for another colonoscopy in june per the patient. CT of the chest abdomen and pelvis with IV contrast from February [address] evidence of tumor recurrence or metastatic disease in the chest abdomen or pelvis. Persistent splenic granuloma, small right adrenal adenoma. Cystic changes in the kidneys. 06/03/22 energy is improved since starting cardiac rehab denies shortness of breath, chest pain, n/v/d/c. No new pain or other new complaints CT scans AMY, labs with low iron, hgb 11.1 despite iron supplementation for manyyears 03/03/23 he feels great and has no complaints energy is good for his age CT scans stable without changes, labs ok, iron studies ok - Physical Exam ECOG PS: 0 General : patient is alert and oriented to person place and time, no acute distress. Neck: no JVD or thyromegaly. Lymph: no cervical, supraclavicular, axillary adenopathy. Heart: regular rate and rhythm no murmurs rubs or gallops. Abdomen: soft nontender nondistended, no hepatosplenomegaly. Lungs: cta bl, no wheezes, rales, rhonchi Extremities: no clubbing cyanosis. - Time with Patient Coordination of Care & Counseling Time: Greater than 50% of time spent with patient was for coordination of care (as documented) and rexa-zd-gbpi counseling of patient and/or family. [facility] - Medical History Medical History: Medical History (Last Reviewed 07/21/22 @ 08:16 by Bev Mustafa RN) A-fib hx ablation Anemia Arthritis CHF (congestive heart failure) Chicken pox Colon cancer COPD (chronic obstructive pulmonary disease) Coronary artery disease Diabetes mellitus, type 2 Hypercholesteremia Hyperlipidemia Hypertension Hyperthyroidism Sleep apnea uses c-pap Wears hearing aid in left ear - Surgical History Surgical History: Surgical History (Last Reviewed 07/21/22 @ 08:16 by Bev Mustafa RN) History of left knee replacement Pacemaker - Family History Family History: Family History (Last Reviewed 08/31/21 @ 08:58 by Quin Bolden) Father CHF (congestive heart failure) Mother Diabetes mellitus, type 2 Brother Cancer Son Blackfan Glo anemia - Social History Smoking Status: Former smoker Tobacco Type: cigarettes Substance Use Type: None Additional Data - Additional Objective Data Height/Weight: Height 5 ft 11 in Weight 102.285 kg Vital Signs: 03/03/23 13:45 Temperature 97.7 F Pulse Rate [Left Brachial] 74 Respiratory Rate 20 Blood Pressure [Right Arm] 125/68 02 Sat by Pulse Oximetry 98 Oxygen Delivery Method Room Air - Lab Results Diagram of Most Recent CBC and CMP 02/28/23 09:24 02/28/23 09:24 Labs - Last 7 Days 02/28/23 09:24: Carcinoembryonic Ag 2.0 02/28/23 09:24: PHA Creatinine Clear 31.39, Sodium 142, Potassium 4.3, Chloride 104, Carbon Dioxide 29.0, Anion Gap 13.3, BUN 45 H, Creatinine 2.25 H, Est GFR (CKD- EPI) 28.753, Glucose 114 H, Calcium 8.8, Iron 56, TIBC 281, Iron Snavulfpag17.9 L, Transferrin 201 L, Ferritin 236.7, Total Bilirubin 0.7, AST 23, ALT 31, Alkaline Phosphatase 118 H, Total Protein 6.5, Albumin 4.1, Globulin 2.4, Albumin/Globulin Ratio 1.7 02/28/23 09:24: Corrected WBC 9.6, Uncorrected WBC Count 9.6, RBC 4.08, Hgb 12.5L, Hct 38.1 L, MCV 93.2, MCH 30.7, MCHC 33.0, RDW 14.7, Plt Count 215, MPV 7.6, Neut % (Auto) 68.3, Lymph % (Auto) 17.9, Dane % (Auto) 9.6, Eos % (Auto) 3.6, Baso % (Auto) 0.6, Nucleat RBC Rel Count 0.3, Neut # (Auto) 6.6, Lymph # (Auto) 1.7, Dane # (Auto) 0.9 H, Eos # (Auto) 0.3, Baso # (Auto) 0.1 - Home Medications and Allergies Allergies/Adverse Reactions: Allergies Csfoomj-XMG-ZpZ Reductase Inhibitor [Fuzddsc-Sav-Clr Reductase Inhibitor] Allergy (Verified 03/03/23 13:45) Muscle Pain tramadol Allergy (Verified 03/03/23 13:45) Itching Home Medications: Home Medications allopurinol 100 mg tablet 100 mg PO DAILY 30 days #30 tabs 06/09/21 [Rx Confirmed 03/03/23] cholecalciferol (vitamin D3) 125 mcg (5,000 unit) capsule 125 mcg PO DAILY 30 days #30 caps 06/09/21 [Rx Confirmed 03/03/23] hydralazine 100 mg tablet 100 mg PO TID 30 days #90 tabs 06/09/21 [Rx Confirmed 03/03/23] niacin 500 mg tablet 500 mg PO DAILY 30 days #30 tabs 06/09/21 [Rx Confirmed 03/03/23] potassium chloride 10 mEq tablet,extended release (Klor-Con) 10 meq PO DAILY 30 days #30 tabs 06/09/21 [Rx Confirmed 03/03/23] bumetanide 1 mg tablet 1 mg PO DAILY 08/02/21 [History Confirmed 03/03/23] metoprolol succinate 50 mg tablet,extended release 24 hr 100 mg PO DAILY 08/02/21 [History Confirmed 03/03/23] aspirin 81 mg tablet,delayed release 81 mg PO DAILY 02/25/22 [History Confirmed 03/03/23] methimazole 5 mg tablet 20 mg PO BID 02/25/22 [History Confirmed 03/03/23] amlodipine 10 mg tablet 10 mg PO DAILY 07/21/22 [History Confirmed 03/03/23] isosorbide dinitrate 10 mg tablet 10 mg PO TID 07/21/22 [History Confirmed 03/03/23] apixaban 2.5 mg tablet (Eliquis) 2.5 mg PO BID 03/03/23 [History Confirmed 03/03/23] ezetimibe 10 mg tablet (Zetia) 10 mg PO DAILY 03/03/23 [History Confirmed 03/03/23] Dictated By: Leigha Nelson APRN DD/ 1420 Signed By: <Electronically signed by EDWARD Nelson> 03/03/23 1431 [facility] Work Phone: [phone]) 327-925805-02-2023 Evaluation note* Encounter Date Diagnosis Assessment Notes Treatment Notes Treatment Clinical Notes February, Thyrotoxicosis (ICD-10 - E05.90) Generate Other 05-01-2023 NoteCardiology Clinic Note Subjective Nas Ren is a 82 y.o. year old male patient with chronic systolic heart failure, stage III chronic kidney disease, atrial flutter s/p ablation, and hypertension seen in follow-up. He was last seen by Guy Hutchinson CNP in 09/2022. He presents today with daughter. He reports feels the best he has in quite a while. Denies chest pain or worsening dyspnea on exertion. Patient Active Problem List Diagnosis Stage 3 chronic kidney disease (CMS/HCC) Bacteremia Cardiomegaly Chronic systolic heart failure (CMS/HCC) Dyslipidemia Edema of lower extremity Hyperlipidemia Hypertensive disorder Left ventricular systolic dysfunction Osteomyelitis of vertebra (CMS/HCC) Paroxysmal atrial flutter (CMS/HCC) Proteinuria Type 2 diabetes mellitus (CMS/HCC) Family History Problem Relation Name Age of Onset Diabetes Mother Heart disease Father Glaucoma Brother Diabetes Maternal Grandmother Clotting disorder Other Social History Tobacco Use Smoking status: Former Types: Cigarettes Smokeless tobacco: Never Substance Use Topics Alcohol use: Yes Comment: OCCASIONAL Drug use: Never HPI Nas Ren is a 82 y.o. male here for Atrial Flutter, Congestive Heart Failure, and Coronary Artery Disease Update: 09/20/2022 Nas is here for 6-month follow-up. States he got his thyroid under control, from which he lost weight. It does show 14 pound weight gain but contributes this due to his thyroid issue resolving and being able to keep on weight. He denies chest pain shortness of breath edema fatigue or decrease in activity level. He has recently been seeing a drilling field operator due to increased creatinine levels, he is a 2.7 per recent labs. Him and both state drilling field operator may refer him to a dialysis specialist. He continues to urinate on a regular basis and reviewing labs he is not holding onto electrolytes. He states he is repeating his labs this week per the drilling field operator. Review of Systems Cardiovascular: Positive for dyspnea on exertion and leg swelling. Negative for chest pain, irregular heartbeat, near-syncope, orthopnea, paroxysmal nocturnal dyspnea and syncope. Objective Visit Vitals BP 134/68 (BP Location: Left arm, Patient Position: Standing, BP Cuff Size: Large adult) Pulse 68 Ht 1.803 m (5' 11 ) Wt 101 kg (222 lb) SpO2 94% BMI 30.96 kg/m??? Smoking Status Former BSA 2.25 m??? Physical Exam General: Awake, alert, good spirits. NAD Pulm: Breath sounds clear to ascultation bilaterally with no wheeze, crackles or rhonchi Cards: Regular rate and rhythm, S1, S2. No S3 or S4 gallop. Murmur: none Abd: Soft, Nontender, physiologic bowel sounds are present Extr: Lower extremity edema: trace. Skin: warm, dry, well perfused Neuro: A&Ox3, No gross deficits Allergies Allergies Allergen Reactions Banlwjw-Hhq-Jsz Reductase Inhibitors Tramadol Medications Current Outpatient Medications: allopurinol (Zyloprim) 100 mg tablet, Take 1 tablet by mouth in the morning., Disp: , Rfl: amLODIPine (Norvasc) 10 mg tablet, Take 10 mg by mouth in the morning., Disp: , Rfl: aspirin 81 mg chewable tablet, Chew 1 tablet every day by oral route., Disp: , Rfl: bumetanide (Bumex) 1 mg tablet, Take 1 mg by mouth in the morning., Disp: , Rfl: cholecalciferol, vitamin D3, 100 mcg (4,000 unit) capsule, Take 1 capsule every day by oral route., Disp: , Rfl: Contour Next Test Strips strip, use 1 TEST STRIP to TEST BLOOD SUGAR once daily, Disp: , Rfl: netdaqofoju-ttcelagcp-hdkpzifs (Trelegy Ellipta) 200-62.5-25 mcg blister with device, Trelegy Ellipta, Disp: , Rfl: hydrALAZINE (Apresoline) 100 mg tablet, Take 1 tablet by mouth in the morning, at noon, and at bedtime., Disp: , Rfl: isosorbide dinitrate (Isordil) 10 mg tablet, Take 10 mg by mouth., Disp: , Rfl: methIMAzole (Tapazole) 5 mg tablet, Take 5 mg by mouth in the morning, afternoon, and at bedtime., Disp: , Rfl: metoprolol succinate XL (Toprol-XL) 100 mg 24 hr tablet, Take 1 tablet (100 mg) by mouth once daily as directed. Do not crush or chew., Disp: 90 tablet, Rfl: 2 niacin 500 mg tablet, Take 1 tablet every day by oral route., Disp: , Rfl: potassium chloride CR (Klor-Con) 10 mEq ER tablet, Take 1 tablet every day by oral route for 30 days., Disp: , Rfl: xfzbcpdkxqa-ojolesukq-xswvsqzb (Trelegy Ellipta) 200-62.5-25 mcg blister with device, Inhale 1 puff in the morning., Disp: 1 each, Rfl: 3 isosorbide dinitrate (Isordil) 10 mg tablet, TAKE 1 TABLET BY MOUTH 3 TIMES DAILY, Disp: 270 tablet, Rfl: 3 Recent Labs 02/14/2023 TC 164, HDL 41, LDL 104.2, Trig 94 01/02/2023 Sodium 140, potassium 4.3, Cl 100, CO2 33.2, BUN 51, Scr 2.31, eGFR 27% WBC 8.1, Hgb 12.4, hematocrit 37.4, platelets 209 09/09/2022 Sodium 138, potassium 3.5, chloride 99, CO2 32.4, BUN 50, serum creatinine 2.77, EGFR 22% Imaging and other tests Echo: 03/07/2022 Global left ventricular (more content not included)...[facility]05-01-2023 NotePt is here today for a 3 month follow up. Review of Systems All other systems reviewed and are negative.[facility] 01-11-2023 Evaluation note* Encounter Date Diagnosis Assessment Notes Treatment Notes Treatment Clinical Notes Dec, COVID (ICD-10 - U07.1) Aware of quarantine guidelines. Push fluids, rest. High risk patient, recommend treatment. Self isolate at home. - Cannot work - avoid contact with others - avoid pets - wipe counters, door knobs if touched - if can't avoid leaving home, must wear mask to protect others - need to stay isolated for 10 days from onset of symptoms or contact with COVID positive individual - to discontinue isolation must be 10 days AND must be without fever for 24 hours AND symptoms must be improving. Always wear a mask in public places. Dec, Type 2 diabetes mellitus with hyperglycemia, without long-term current use of insulin (ICD-10 - E11.65) BS may increase during illness. 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 Generate Other 03-09-2023 Note Attestation signed by Becka Martins MD at 12/22/2022 4:57 PM By using the attestations below, the signing clinician agrees that I have read and verify that the documentation has been personally reviewed by me and ensure that the documentation accurately reflects the encounter. GC: I personally saw this patient on the day of the encounter, performed the mckenna portion(s) of the service and participated in the management and confirm the resident's documentation. Please note there may be an additional personal documentation from me. Pulmonary Clinic Visit Note Patient: Nas Ren Age: 82 y.o. : 1940 Account No.: [id number] Chief complaint: HPI Nas Ren is a 82 y.o. male who presents with asthma-COPD overlap syndrome with PFT results FEV1/FVC of 59, FEV1 of 68% and FVC of 82%. Patient was started on albuterol inhaler prn last May with CBC demonstrating peripheral eosinophils of 4.3% and IgE of 308. Patient reports compliance with pulmicort therapy bid and Anoro therapy once daily. Patient reports he tolerated Trelegy therapy previously well but had to discontinue due to insurance coverage. Patient requests to switch back to Trelegy now that insurance will cover therapy. No past medical history on file. Past Surgical History: Procedure Laterality Date CARDIAC CATHETERIZATION 05/16/2018 CARDIAC CATHETERIZATION 05/04/2016 CARDIAC CATHETERIZATION 05/03/2016 CARDIAC CATHETERIZATION 03/30/2016 CT GUIDED PERCUTANEOUS PERITONEAL OR RETROPERITONEAL FLUID COLLECTION DRAINAGE 05/27/2021 CT GUIDED PERCUTANEOUS PERITONEAL OR RETROPERITONEAL FLUID COLLECTION DRAINAGE BENDER CONVERSION INSERT / REPLACE / REMOVE PACEMAKER 02/12/2020 PILONIDAL CYST DRAINAGE 10/16/1968 TOTAL KNEE ARTHROPLASTY 08/16/2016 Allergies: Foplrpq-ubj-fnt reductase inhibitors and Tramadol Prior to Admission medications Medication Sig Start Date End Date Taking? Authorizing Provider albuterol (Ventolin HFA) 90 mcg/actuation inhaler Ventolin HFA 90 mcg/actuation aerosol inhaler inhale 2 puffs by mouth and INTO THE LUNGS every 4 hours if needed Historical Provider, allopurinol (Zyloprim) 100 mg tablet Take 1 tablet by mouth in the morning. Historical Provider, amLODIPine (Norvasc) 10 mg tablet Take 1 tablet by mouth in the morning. Historical Provider, amLODIPine (Norvasc) 10 mg tablet Take 10 mg by mouth in the morning. Historical Provider, aspirin 81 mg chewable tablet Chew 1 tablet every day by oral route. Historical Provider, budesonide (Pulmicort) 180 mcg/actuation inhaler Inhale by inhalation route as directed for 90 days. Historical Provider, budesonide (Pulmicort) 90 mcg/actuation inhaler Inhale 2 puffs twice a day. Historical Provider, MD bumetanide (Bumex) 1 mg tablet Take 1 mg by mouth in the morning. Historical ProviderMD cholecalciferol, vitamin D3, 100 mcg (4,000 unit) capsule Take 1 capsule every day by oral route. Historical ProviderMD Contour Next Test Strips strip use 1 TEST STRIP to TEST BLOOD SUGAR once daily 07/26/22 Historical ProviderMD hydrALAZINE (Apresoline) 100 mg tablet Take 1 tablet by mouth in the morning, at noon, and at bedtime. Historical ProviderMD isosorbide dinitrate (Isordil) 10 mg tablet TAKE 1 TABLET BY MOUTH 3 TIMES DAILY 09/26/22 Roxanne Sanchez NP isosorbide dinitrate (Isordil) 10 mg tablet Take 10 mg by mouth. Historical ProviderMD isosorbide mononitrate 10 mg tablet Take 10 mg by mouth every 8 (eight) hours. Historical ProviderMD methIMAzole (Tapazole) 5 mg tablet Take 5 mg by mouth in the morning, afternoon, and at bedtime. 02/25/22 Historical ProviderMD metoprolol succinate XL (Toprol-XL) 100 mg 24 hr tablet Take 1 tablet (100 mg) by mouth once daily as directed. Do not crush or chew. 12/12/22 12/12/23 Srinivas Kang NP metoprolol succinate XL (Toprol-XL) 50 mg 24 hr tablet 2 tablets in the morning. Historical ProviderMD niacin 500 mg tablet Take 1 tablet every day by oral route. Historical ProviderMD potassium chloride CR (Klor-Con) 10 mEq ER tablet Take 1 tablet every day by oral route for 30 days. Historical ProviderMD umeclidinium-vilanteroL (Anoro Ellipta) 62.5-25 mcg/actuation blister with device Inhale by inhalation route as directed for 90 days. Historical ProviderMD umeclidinium-vilanteroL (Anoro Ellipta) 62.5-25 mcg/actuation blister with device 1 puff 1 (one) time each day at the same time. Historical ProviderMD methIMAzole (Tapazole) 10 mg tablet Take 10 mg by mouth once daily as directed. 12/22/22 Historical ProviderMD Social history: reports that he has quit smoking. His smoking use included cigarettes. He has never used smokeless tobacco. He reports current alcohol use. He reports that he does (more content not included)...[facility]03-02-2023 Evaluation note* Encounter Date Diagnosis Assessment Notes Treatment Notes Treatment Clinical Notes Dec, Medicare annual wellness visit, subsequent (ICD-10 - Z00.00) Personalized health advice was given to the beneficiary including a written plan for screenings discussed and provided. Advanced care planning reviewed and/or information given as requested. Additional counseling was provided here today in regards to, [ ]. The above visit was performed by [ ], under direct supervision of [ ]. Document reviewed and amended by provider signed below. Healthy diet and exercise. Reviewed age-appropriate preventive testing recommended. 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 Low salt diet, exercise f/u Cardiology Dec, Chronic systolic congestive heart failure (ICD-10 - I50.22) Daily weights, extra diuretic to maintain stable weight. Dec, Type 2 diabetes mellitus with hyperglycemia, without long-term current use of insulin (ICD-10 - E11.65) This patient is following a comprehensive diabetic treatment plan. They are checking their feet daily for calluses and nonhealing ulcers. They are being seen for yearly dilated eye examinations. Goals: SBP less than 130, LDL less than 100, FBS less than 140, AC and A1C less than 7%. They are checking their BS daily, will which are reviewed at the office visit. Dec, Stage 4 chronic kidney disease (ICD-10 - N18.4) The patient is instructed on adequate control of hypertension and diabetes, if appropriate. They are also educated on the associated risks of NSAIDs and PPI use with kidney disease. They were instructed on adequate fluid balance and to avoid dehydration. 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 Nonfunctioning thyroid nodule. Continue medical treatment. Normalize TSH, T4,T3 Dec, Obstructive sleep apnea (ICD-10 - G47.33) This patient is aware of the benefits associated with MOLINA: With continued use, the patient reduces the risk for OK, CVA, HTN, cardiac dysrhythmias and sudden cardiac deaths.The patient is also aware of the association between MOLINA and morning headaches, daytime somnolence, fatigue and obesity, which also has been improved with continued use.The patient is compliant with treatment, wearing the equipment every night for greater than 4 hours.The patient is instructed to continue use of the CPAP for MOLINA treatment. Dec, Hyperlipidemia type II (ICD-10 - E78.01) Diet and exercise with continued statin therapy. Dec, Malignant neoplasm of ascending colon (ICD-10 - C18.2) Continue close surveillance. Repeat scope in year Dec, Lumbar spondylosis (ICD-10 - M47.816) The patient is instructed to avoid bending, twisting or lifting. They are to use intermittent heat and ice as needed. They may schedule a massage or gentle manipulation. They may safely use Tylenol as needed. Dec, Chronic venous insufficiency (ICD-10 - I87.2) Avoid salt and elevate lower extremities, support stockings, inspect legs and feet daily for blisters and ulcerations. Dec, Mucopurulent chronic bronchitis (ICD-10 - J41.1) Mucinex as needed, hydrate. Continue triple therapy. No acute exacerbations requiring ER or hosp visits. 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 Did not require adjuvant chemotherapy The patient has a brother who of colon cancer. The patient's son has Glo-Blackfan anemia. The patient has been tested for the same genetic mutation and is negative. [facility] colorectal germline panel was negative. No evidence of disease on CT imaging in February 2022. We will scan him every 3 to 6 months for 2 years and yearly through year 5. He should probably have another colonoscopy in late 2021 or early 2022. Will continue to monitor CEAs as well. May 2022 CEA WNL/stable. CT scans with no evidence of recurrence aug 2022 scans no evidence of disease. repeat colonoscopy in jul 2022 was with a few polyps. recommend repeat colonoscopy in jul 2023. Iron deficiency anemia d/t chronic blood loss, malabsorption has been on oral iron for years May 2022 IV Injectafer x 2 doses. Follow Up Instructions: iron studies, cbc, cea, cmp prior to f/u in [address] a/p with contrst prior to f/u in 6 mos. - History of Present Illness Chief Complaint: Patient is here for a 3 month follow up with labs and scans forreview. No concerns voiced at this time. HPI: 81-year-old male previously cared for by Dr. Shultz Past medical history includes COPD, type 2 diabetes, stage III renal disease, history of atrial fibrillation status post ablation, hypertension, hyperlipidemia, chronic anemia,type 2 diabetes, gout, heart disease. He has a pacemaker that was placed in January 2020. Outpatient medications include metoprolol, Imdur, Bumex, hydralazine, aspirin, niacin, allopurinol, iron, amlodipine, benazepril, clonidine, carvedilol, Tradjenta, Pulmicort, Anoro. presented in late 2020 presented to the hospital with a streptococcal septicemia. 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 Psoas abscesses drained by interventional radiology on 05/27. In late June he completed 6 weeks of IV ceftriaxone. Ortho spine recommended conservative management of presumed lumbar discitis/osteomyelitis. Work-up included a colonoscopy and note was made of a malignant polyp. 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 0 of 17 lymph nodes were involved, T2N0. Preoperatively CT scan was done and there was noted a small hypodensity in the dome of the liver thought to be a cyst. He has a significant family history of colon cancer. He had a brother who of colon cancer. Also his son has Glo-Blackfan anemia and Dr. Shultz took care of him for many years. The son's daughter also has Glo-Blackfan anemia. and Mrs. Ren were tested for Glo-Blackfan anemia genetic mutation but this was negative. He had seen Dr. Shultz. Did not require chemotherapy. 02/25/22 recent diagnosis graves disease and hyperthyroid symptoms. He is due for another colonoscopy in june per the patient. CT of the chest abdomen and pelvis with IV contrast from February [address] evidence of tumor recurrence or metastatic disease in the chest abdomen or pelvis. Persistent splenic granuloma, small right adrenal adenoma. Cystic changes in the kidneys. 06/03/22 energy is improved since starting cardiac rehab denies shortness of breath, chest pain, n/v/d/c. No new pain or other new complaints CT scans AMY, labs with low iron, hgb 11.1 despite iron supplementation for manyyears - Physical Exam ECOG PS: 0 General : patient is alert and oriented to person place and time, no acute distress. Neck: no JVD or thyromegaly. Lymph: no cervical, supraclavicular, axillary adenopathy. Heart: regular rate and rhythm no murmurs rubs or gallops. Abdomen: soft nontender nondistended, no hepatosplenomegaly. Lungs: cta bl, no wheezes, rales, rhonchi Extremities: no clubbing cyanosis. - Time with Patient Coordination of Care & Counseling Time: Greater than 50% of time spent with patient was for coordination of care (as documented) and qjuk-zz-gizt counseling of patient and/or family. [facility] - Medical History Medical History: Medical History (Last Reviewed 07/21/22 @ 08:16 by Bev Mustafa RN) A-fib hx ablation Anemia Arthritis CHF (congestive heart failure) Chicken pox Colon cancer COPD (chronic obstructive pulmonary disease) Coronary artery disease Diabetes mellitus, type 2 Hypercholesteremia Hyperlipidemia Hypertension Hyperthyroidism Sleep apnea uses c-pap Wears hearing aid in left ear - Surgical History Surgical History: Surgical History (Last Reviewed 07/21/22 @ 08:16 by Bev Mustafa RN) History of left knee replacement Pacemaker - Family History Family History: Family History (Last Reviewed 08/31/21 @ 08:58 by Quin Bolden) Father CHF (congestive heart failure) Mother Diabetes mellitus, type 2 Brother Cancer Son Blackfan Glo anemia - Social History Smoking Status: Former smoker Tobacco Type: cigarettes Substance Use Type: None Additional Data - Additional Objective Data Height/Weight: Height 5 ft 11 in Weight 98.9 kg Vital Signs: 09/02/22 14:11 Pulse Rate [Left Brachial] 60 Respiratory Rate 20 Blood Pressure [Right Arm] 153/72 H 02 Sat by Pulse Oximetry 96 Oxygen Delivery Method Room Air - Lab Results Diagram of Most Recent CBC and CMP 08/31/22 10:00 08/31/22 10:00 Labs - Last 7 Days 08/31/22 10:00: Carcinoembryonic Ag 2.5 08/31/22 10:00: PHA Creatinine Clear 26.08, Sodium 135 L, Potassium 3.4 L, Chloride 98, Carbon Dioxide 31.0 H, Anion Gap 9.4, BUN 40 H, Creatinine 2.63 H, Est GFR ( Amer) 29, Est GFR (Non-Af Amer) 24, Glucose 104 H, Calcium 8.9,Total Bilirubin 0.8, AST 32, ALT 26, Alkaline Phosphatase 112 H, Total Protein 6.7, Albumin 3.9, Globulin 2.8, Albumin/Globulin Ratio 1.4 08/31/22 10:00: Corrected WBC 6.7, Uncorrected WBC Count 6.7, RBC 4.00, Hgb 12.4L, Hct 37.2 L, MCV 92.9, MCH 31.0, MCHC 33.4, RDW 15.7 H, Plt Count 238, MPV 6.8, Neut % (Auto) 68.3, Lymph % (Auto) 18.5, Dane % (Auto) 8.4, Eos % (Auto) 4.3, Baso % (Auto) 0.5, Neut # (Auto) 4.6, Lymph # (Auto) 1.2, Dane # (Auto) 0.6, Eos # (Auto) 0.3, Baso # (Auto) 0.0, Nucleated RBC % (auto) 0.1 - Home Medications and Allergies Allergies/Adverse Reactions: Allergies Hbvtltk-ZHN-KoS Reductase Inhibitor [Cxcnsho-Ocf-Xjr Reductase Inhibitor] Allergy (Verified 09/02/22 14:10) Muscle Pain tramadol Allergy (Verified 09/02/22 14:10) Itching Home Medications: Home Medications allopurinol 100 mg tablet 100 mg PO DAILY 30 days #30 tabs 06/09/21 [Rx Confirmed 09/02/22] cholecalciferol (vitamin D3) 125 mcg (5,000 unit) capsule 125 mcg PO DAILY 30 days #30 caps 06/09/21 [Rx Confirmed 09/02/22] hydralazine 100 mg tablet 100 mg PO TID 30 days #90 tabs 06/09/21 [Rx Confirmed 09/02/22] niacin 500 mg tablet 500 mg PO DAILY 30 days #30 tabs 06/09/21 [Rx Confirmed 09/02/22] potassium chloride 10 mEq tablet,extended release (Klor-Con) 10 meq PO DAILY 30 days #30 tabs 06/09/21 [Rx Confirmed 09/02/22] Anoro Ellipta 62.5 mcg inhalation DAILY copd 08/02/21 [History Confirmed 09/02/22] budesonide 180 mcg/actuation breath activated powder inhaler (Pulmicort Flexhaler) 360 mcg inhalation BID copd 08/02/21 [History Confirmed 09/02/22] bumetanide 1 mg tablet 1 mg PO DAILY 08/02/21 [History Confirmed 09/02/22] metoprolol succinate 50 mg tablet,extended release 24 hr 100 mg PO DAILY 08/02/21 [History Confirmed 09/02/22] aspirin 81 mg tablet,delayed release 81 mg PO DAILY 02/25/22 [History Confirmed 09/02/22] methimazole 5 mg tablet 20 mg PO BID 02/25/22 [History Confirmed 09/02/22] amlodipine 10 mg tablet 10 mg PO DAILY 07/21/22 [History Confirmed 09/02/22] isosorbide dinitrate 10 mg tablet 10 mg PO TID 07/21/22 [History Confirmed 09/02/22] Dictated By: Chivo Keller II, DO DD/ 1431 Signed By: <Electronically signed by Chivo Keller II, DO> 09/02/22 1438 [facility] Work Phone: 1(104) 175-534710-06-2022 Procedure [facility]08-19-2022 Progress note Author Leigha Nelson [facility] June 03, 2022 10:35am Note Date/Time June 03, 2022 10 :10am [facility] [place] [address] Hem/Onc Follow Up Note - OP Signed Patient: Nas Ren MR#: [id number] : 1940 Acct:[id number] Age/Sex: 82 / M Type: REG RCR Copies to: MD Arnie Lui DO Timothy J Adamowicz, II, DO~ Date of Service: 06/03/2022 Time of Service: 10:07 - Assessment & Plan (1) Colon cancer Plan: T2 N0 M0, stage I colon cancer resected in late 2020. Did not require adjuvant chemotherapy The patient has a brother who of colon cancer. The patient's son has Glo-Blackfan anemia. The patient has been tested for the same genetic mutation and is negative. [facility] colorectal germline panel was negative. No evidence of disease on CT imaging in February 2022. We will scan him every 3 to 6 months for 2 years and yearly through year 5. He should probably have another colonoscopy in late 2021 or early 2022. Will continue to monitor CEAs as well. May 2022 CEA WNL/stable. CT scans with no evidence of recurrence Scheduled for colonoscopy on 07/21/[address] Rascon Iron deficiency anemia d/t chronic blood loss, malabsorption has been on oral iron for years May 2022 labs with persistent low iron at saturation of 11%. Will plan to replete with IV Injectafer x 2 doses Follow Up Instructions: IV Injectafer x 2 doses cbc, cmp, cea in 3mo CT c/a/p in 3mo follow-up in 3mo - History of Present Illness Chief Complaint: Patient is here for a 3 month follow up with labs and CT scans 05/31/2022 for review. No concerns voiced at this time. HPI: 81-year-old male previously cared for by Dr. Shultz Past medical history includes COPD, type 2 diabetes, stage III renal disease, history of atrial fibrillation status post ablation, hypertension, hyperlipidemia, chronic anemia,type 2 diabetes, gout, heart disease. He has a pacemaker that was placed in January 2020. Outpatient medications include metoprolol, Imdur, Bumex, hydralazine, aspirin, niacin, allopurinol, iron, amlodipine, benazepril, clonidine, carvedilol, Tradjenta, Pulmicort, Anoro. presented in late 2020 presented to the hospital with a streptococcal septicemia. 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 Psoas abscesses drained by interventional radiology on 05/27. In late June he completed 6 weeks of IV ceftriaxone. Ortho spine recommended conservative management of presumed lumbar discitis/osteomyelitis. Work-up included a colonoscopy and note was made of a malignant polyp. 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 0 of 17 lymph nodes were involved, T2N0. Preoperatively CT scan was done and there was noted a small hypodensity in the dome of the liver thought to be a cyst. He has a significant family history of colon cancer. He had a brother who of colon cancer. Also his son has Glo-Blackfan anemia and Dr. Shultz took care of him for many years. The son's daughter also has Glo-Blackfan anemia. and Mrs. Ren were tested for Glo-Blackfan anemia genetic mutation but this was negative. He had seen Dr. Shultz. Did not require chemotherapy. 02/25/22 recent diagnosis graves disease and hyperthyroid symptoms. He is due for another colonoscopy in june per the patient. CT of the chest abdomen and pelvis with IV contrast from February [address] evidence of tumor recurrence or metastatic disease in the chest abdomen or pelvis. Persistent splenic granuloma, small right adrenal adenoma. Cystic changes in the kidneys. 06/03/22 energy is improved since starting cardiac rehab denies shortness of breath, chest pain, n/v/d/c. No new pain or other new complaints CT scans AMY, labs with low iron, hgb 11.1 despite iron supplementation for manyyears - Physical Exam ECOG PS: 0 General : patient is alert and oriented to person place and time, no acute distress. Neck: no JVD or thyromegaly. Lymph: no cervical, supraclavicular, axillary adenopathy. Heart: regular rate and rhythm no murmurs rubs or gallops. Abdomen: soft nontender nondistended, no hepatosplenomegaly. Lungs: cta bl, no wheezes, rales, rhonchi Extremities: no clubbing cyanosis. - Time with Patient Coordination of Care & Counseling Time: Greater than 50% of time spent with patient was for coordination of care (as documented) and ajtx-mq-hauw counseling of patient and/or family. [facility] - Medical History Medical History: Medical History (Last Updated 06/03/22 @ 09:58 by Celia Barron) A-fib hx ablation Anemia Arthritis CHF (congestive heart failure) Chicken pox Colon cancer COPD (chronic obstructive pulmonary disease) Coronary artery disease Diabetes mellitus, type 2 Hypercholesteremia Hyperlipidemia Hypertension Hyperthyroidism Sleep apnea uses c-pap Wears hearing aid in left ear - Surgical History Surgical History: Surgical History (Last Reviewed 08/31/21 @ 08:58 by Quin Bolden) History of left knee replacement Pacemaker - Family History Family History: Family History (Last Reviewed 08/31/21 @ 08:58 by Quin Bolden) Father CHF (congestive heart failure) Mother Diabetes mellitus, type 2 Brother Cancer Son Blackfan Glo anemia - Social History Smoking Status: Former smoker Tobacco Type: cigarettes Substance Use Type: None Additional Data - Additional Objective Data Height/Weight: Height 5 ft 11 in Weight 92.85 kg Vital Signs: 06/03/22 09:55 Temperature 97.4 F L Pulse Rate [Left Brachial] 60 Respiratory Rate 20 Blood Pressure [Right Arm] 134/64 02 Sat by Pulse Oximetry 98 Oxygen Delivery Method Room Air - Lab Results Diagram of Most Recent CBC and CMP 05/31/22 11:37 05/31/22 11:37 Labs - Last 7 Days 05/31/22 11:41: POC Creatinine 2.4 H, POC eGFR Amer 32, POC eGFR Non- Afric Amer 26 05/31/22 11:37: Carcinoembryonic Ag 1.8 05/31/22 11:37: PHA Creatinine Clear 31.14, Sodium 140, Potassium 4.4, Chloride 101, Carbon Dioxide 29.7, BUN 42 H, Creatinine 2.23 H, Est GFR ( Amer) 34, Est GFR (Non-Af Amer) 28, Glucose 108 H, Calcium 9.5, Total Bilirubin 0.5, AST 22, ALT 17, Alkaline Phosphatase 140 H, Total Protein 7.3, Albumin 3.9, Globulin 3.4, Albumin/Globulin Ratio 1.1 05/31/22 11:37: Corrected WBC 8.8, Uncorrected WBC Count 8.8, RBC 3.81 L, Hgb 11.1 L, Hct 33.6 L, MCV 88.2, MCH 29.2, MCHC 33.1, RDW 16.4 H, Plt Count 308, MPV 7.0, Neut % (Auto) 69.9, Lymph % (Auto) 17.2, Dane % (Auto) 8.0, Eos % (Auto) 4.1, Baso % (Auto) 0.8, Neut # (Auto) 6.2, Lymph # (Auto) 1.5, Dane # (Auto) 0.7, Eos # (Auto) 0.4, Baso # (Auto) 0.1, Nucleated RBC % (auto) 0.0 - Home Medications and Allergies Allergies/Adverse Reactions: Allergies Bzzvpmv-ZXJ-EeD Reductase Inhibitor [Eirjprn-Owq-Aja Reductase Inhibitor] Allergy (Verified 06/03/22 09:55) Muscle Pain tramadol Allergy (Verified 06/03/22 09:55) Itching Home Medications: Home Medications allopurinol 100 mg tablet 100 mg PO DAILY 30 days #30 tabs 06/09/21 [Rx Confirmed 06/03/22] cholecalciferol (vitamin D3) 125 mcg (5,000 unit) capsule 125 mcg PO DAILY 30 days #30 caps 06/09/21 [Rx Confirmed 06/03/22] ferrous sulfate 324 mg (65 mg iron) tablet,delayed release 324 mg PO DAILY 30 days #30 tabs 06/09/21 [Rx Confirmed 06/03/22] hydralazine 100 mg tablet 100 mg PO TID 30 days #90 tabs 06/09/21 [Rx Confirmed 06/03/22] niacin 500 mg tablet 500 mg PO DAILY 30 days #30 tabs 06/09/21 [Rx Confirmed 06/03/22] potassium chloride 10 mEq tablet,extended release (Klor-Con) 10 meq PO DAILY 30 days #30 tabs 06/09/21 [Rx Confirmed 06/03/22] Anoro Ellipta 62.5 mcg inhalation DAILY copd 08/02/21 [History Confirmed 06/03/22] budesonide 180 mcg/actuation breath activated powder inhaler (Pulmicort Flexhaler) 360 mcg inhalation BID copd 08/02/21 [History Confirmed 06/03/22] bumetanide 1 mg tablet 1 mg PO DAILY 08/02/21 [History Confirmed 06/03/22] metoprolol succinate 50 mg tablet,extended release 24 hr 100 mg PO DAILY 08/02/21 [History Confirmed 06/03/22] aspirin 81 mg tablet,delayed release 81 mg PO DAILY 02/25/22 [History Confirmed 06/03/22] methimazole 5 mg tablet 20 mg PO BID 02/25/22 [History Confirmed 06/03/22] propranolol 10 mg tablet 10 mg PO TID 02/25/22 [History Confirmed 06/03/22] Dictated By: Leigha Nelson APRN DD/ 1007 Signed By: <Electronically signed by EDWARD Nelson> 06/03/22 1035 [facility] Work Phone: 1(167) 209-774206-18-2022 NoteMR#: [id number] I [facility] Pt. Name: Nas Ren Admitted: 03/30/2022 Discharged: 04/02/2022 Date of : 1940 Physician: Gilmer Salazar MD DISCHARGE SUMMARY CONSULTING SERVICES: 1. Nephrology Service. 2. Endocrinology service. 3. Cardiology service. PRINCIPAL DIAGNOSES: 1. Kkkgh-dq-tqaylec heart failure, reduced ejection fraction of 35%. 2. Acute kidney injury on chronic kidney disease, stage 4, resolved. 3. Dyspnea, on exertion. 4. Essential hypertension. 5. History of coronary artery disease. 6. Iodine-induced hyperthyroidism, uncontrolled. 7. Nam-ejrqked-vdiykxbjf diabetes mellitus, diet controlled, A1c 6.4. 8. Hyperlipidemia. 9. Chronic obstructive pulmonary disease, stable, non exacerbation. 10. Gout, without flare. 11. Colorectal cancer, status post resection. 12. History of complete heart block, status post permanent pacemaker insertion. 13. History of paroxysmally atrial fibrillation, status post ablation, now on anticoagulation. 14. History of Streptococcus bacteremia, secondary to lumbar osteomyelitis in 2000. HOSPITAL PROCEDURES: Right heart catheterization. HOSPITAL COURSE: The patient is a 81-year-old male who presented to [facility] with chief complaint of dyspnea on exertion. Cardiology service was consulted as the patient does have history of heart failure. The patient was given aggressive diuresis and Nephrology service was also consulted to assist in management of WICHO on CKD stage 4, as well as for diuresis management. The patient responded well to diuresis, underwent right heart catheterization, which actually showed the patient had low pulmonary wedge pressure as well as elevated cardiac output. The patient also had undetectable TSH level and T4 level of 4.55. Cardiac output on right heart catheterization was 9.39, which raises a concern for high-output heart failure from hyperthyroidism. Endocrinology was consulted and increased patient's methimazole and started the patient on cholestyramine sucrose. The patient was eventually returned to euvolemic state after diuresis. He also underwent stress test to rule out any obstructive coronary artery disease and stress test was negative. He was discharged with his baseline creatinine and with no edema. No evidence of fluid overload. He was cleared for discharge by Endocrinology, Nephrology, and Cardiology services. DISCHARGE MEDICATIONS: As per medication discharge per paperwork. DISCHARGE INSTRUCTIONS: The patient instructed to follow up with PCP within 1 week. The patient instructed to obtain basic metabolic panel in 3 to 5 days and follow up results with PCP. The patient also instructed to monitor closely for fluid overload status and also instructed to obtain diabetic male diet and a low-sodium diet. He is instructed to weigh himself daily. 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 The patient also require repeat thyroid function tests in several weeks and he will need to follow up with Endocrinology team for further management of his hyperthyroidism. Electronically Signed by: Gilmer Salazar MD 04/04/2022 12:51 P Gilmer Salazar MD I personally saw this patient on the day of the encounter, performed the mckenna portion(s) of the service and participated in the management and confirm the resident's documentation. Please note there may be an additional personal documentation from me. Date Dict: 04/02/2022/01:31 P/Live Adler PA-C Date Trans: 04/02/2022 02:36 P/racho [id number] cc: Arnie Linda D.O. [address] [place] [address] [facility] [id number] [facility]05-21-2022 NotePROCEDURE: XR CHEST 1 V REASON FOR STUDY/CLINICAL HISTORY: SHORTNESS OF BREATH. COMPARISON STUDY: 02/21/2022 TECHNIQUE: Single view(s) of the chest presented for interpretation. FINDINGS: Left basilar opacification is noted, suggesting infiltrate, atelectasis and underlying effusion. Consolidation at the left lung base is not excluded and there is moderate right infrahilar bronchial thickening with adjacent atelectasis and edema extending to the right lung base. No large effusion or pneumothorax. Severe degenerative change of the shoulders and glenohumeral regions. Enlarged cardiomediastinal silhouette. No acute osseous finding. IMPRESSION: Cardiomegaly with mild edema at the lung bases. Left basilar infiltrate/atelectasis and small pleural effusion with right infrahilar bronchial thickening and airspace disease as above. No large effusion or pneumothorax. Electronically authenticated by: NICK OLMEDO Date: 2022-03-05 21:29[facility]05-15-2022 Progress note Author Chivo Keller [facility] February 27, 2022 12:52pm Note Date/Time February 25, 2022 12:11 pm [facility] at [address] [address] Hem/Onc Follow Up Note - OP Signed Patient: Nas Ren MR#: [id number] : 1940 Acct:[id number] Age/Sex: 81 / M Type: REG RCR Copies to: MD Arnie Lui,DO~ Date of Service: 02/25/2022 Time of Service: 12:10 - Assessment & Plan (1) Colon cancer Plan: T2 N0 M0, stage I colon cancer resected in late 2020. Did not require adjuvant chemotherapy The patient has a brother who of colon cancer. The patient's son has Glo-Blackfan anemia. The patient has been tested for the same genetic mutation and is negative. No evidence of disease on CT imaging in February 2022. We will scan him every 3 to 6 months for 2 years and yearly through year 5. He should probably have another colonoscopy in late 2021 or early 2022. Will continue to monitor CEAs as well. [facility] colorectal germline panel was negative. . Follow Up Instructions: ct c/a/p with contrast in 3 mos. f/u after. refer for consideration of colonoscopy Dr. Mejia/heaven. cbc, cmp, cea prior to f/u. - History of Present Illness Chief Complaint: Patient is a former patient of Dr Shultz here for a 6 month follow up for colon cancer. He had labs and CT scans 02/22/2022 for review. No concerns voiced at this time. HPI: 81-year-old male previously cared for by Dr. Shultz Past medical history includes COPD, type 2 diabetes, stage III renal disease, history of atrial fibrillation status post ablation, hypertension, hyperlipidemia, chronic anemia,type 2 diabetes, gout, heart disease. He has a pacemaker that was placed in January 2020. Outpatient medications include metoprolol, Imdur, Bumex, hydralazine, aspirin, niacin, allopurinol, iron, amlodipine, benazepril, clonidine, carvedilol, Tradjenta, Pulmicort, Anoro. presented in late 2020 presented to the hospital with a streptococcal septicemia. 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 Psoas abscesses drained by interventional radiology on 05/27. In late June he completed 6 weeks of IV ceftriaxone. Ortho spine recommended conservative management of presumed lumbar discitis/osteomyelitis. Work-up included a colonoscopy and note was made of a malignant polyp. 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 0 of 17 lymph nodes were involved, T2N0. Preoperatively CT scan was done and there was noted a small hypodensity in the dome of the liver thought to be a cyst. He has a significant family history of colon cancer. He had a brother who of colon cancer. Also his son has Glo-Blackfan anemia and Dr. Shultz took care of him for many years. The son's daughter also has Glo-Blackfan anemia. and Mrs. Ren were tested for Glo-Blackfan anemia genetic mutation but this was negative. He had seen Dr. Shultz. Did not require chemotherapy. 02/25/22 recent diagnosis graves disease and hyperthyroid symptoms. He is due for another colonoscopy in june per the patient. CT of the chest abdomen and pelvis with IV contrast from February [address] evidence of tumor recurrence or metastatic disease in the chest abdomen or pelvis. Persistent splenic granuloma, small right adrenal adenoma. Cystic changes in the kidneys. - Physical Exam ECOG PS: 0 General : patient is alert and oriented to person place and time, no acute distress. Neck: no JVD or thyromegaly. Lymph: no cervical, supraclavicular, axillary adenopathy. Heart: regular rate and rhythm no murmurs rubs or gallops. Abdomen: soft nontender nondistended, no hepatosplenomegaly. Lungs: cta bl, no wheezes, rales, rhonchi Extremities: no clubbing cyanosis. - Time with Patient Coordination of Care & Counseling Time: Greater than 50% of time spent with patient was for coordination of care (as documented) and kudr-mp-[id number] counseling of patient and/or family. [facility] - Medical History Medical History: Medical History (Last Reviewed 08/31/21 @ 08:58 by Quin Bolden) A-fib hx ablation Anemia Arthritis CHF (congestive heart failure) Chicken pox Colon cancer COPD (chronic obstructive pulmonary disease) Coronary artery disease Diabetes mellitus, type 2 Hypercholesteremia Hyperlipidemia Hypertension Sleep apnea uses c-pap Wears hearing aid in left ear - Surgical History Surgical History: Surgical History (Last Reviewed 08/31/21 @ 08:58 by Quin Bolden) History of left knee replacement Pacemaker - Family History Family History: Family History (Last Reviewed 08/31/21 @ 08:58 by Quin Bolden) Father CHF (congestive heart failure) Mother Diabetes mellitus, type 2 Brother Cancer Son Blackfan Glo anemia - Social History Smoking Status: Former smoker Tobacco Type: cigarettes Substance Use Type: None Additional Data - Additional Objective Data Height/Weight: Height 5 ft 11 in Weight 95.39 kg Vital Signs: 02/25/22 11:40 Temperature 98.1 F Pulse Rate [Left Brachial] 79 Respiratory Rate 20 Blood Pressure [Right Arm] 135/67 02 Sat by Pulse Oximetry 96 - Lab Results Diagram of Most Recent CBC and CMP 02/22/22 09:35 02/22/22 09:35 Labs - Last 7 Days 02/22/22 09:35: B-Natriuretic Peptide 251.0 H 02/22/22 09:35: Corrected WBC 6.5, Uncorrected WBC Count 6.5, RBC 3.54 L, Hgb 10.4 L, Hct 30.9 L, MCV 87.2, MCH 29.3, MCHC 33.6, RDW 14.6, Plt Count 260, MPV 7.9, Neut % (Auto) 65.1, Lymph % (Auto) 19.2, Dane % (Auto) 13.3, Eos % (Auto) 1.8, Baso % (Auto) 0.6, Neut # (Auto) 4.2, Lymph # (Auto) 1.2, Dane # (Auto) 0.9H, Eos # (Auto) 0.1, Baso # (Auto) 0.0, Nucleated RBC % (auto) 0.0 02/22/22 09:35: PHA Creatinine Clear 31.95, Sodium 140, Potassium 4.0, Chloride 104, Carbon Dioxide 22.7, BUN 57 H, Creatinine 2.16 H, Est GFR ( Amer) 36, Est GFR (Non-Af Amer) 30, Glucose 126 H, Calcium 9.3, Total Bilirubin 0.8, AST 19, ALT 20, Alkaline Phosphatase 85, Total Protein 6.5, Albumin 3.3, Globulin 3.2, Albumin/Globulin Ratio 1.0, TSH 3rd Generation < 0.01 L 02/22/22 09:35: Carcinoembryonic Ag 1.6 - Home Medications and Allergies Allergies/Adverse Reactions: Allergies Axfmeuz-KUJ-ZiM Reductase Inhibitor [Vbvtsdo-Scn-Wyo Reductase Inhibitor] Allergy (Verified 02/25/22 11:39) Muscle Pain tramadol Allergy (Verified 02/25/22 11:39) Itching Home Medications: Home Medications allopurinol 100 mg tablet 100 mg PO DAILY 30 Days #30 tab 06/09/21 [Rx Confirmed 02/25/22] cholecalciferol (vitamin D3) 125 mcg (5,000 unit) capsule 125 mcg PO DAILY 30 Days #30 cap 06/09/21 [Rx Confirmed 02/25/22] ferrous sulfate 324 mg (65 mg iron) tablet,delayed release 324 mg PO DAILY 30 Days #30 tab 06/09/21 [Rx Confirmed 02/25/22] hydralazine 100 mg tablet 100 mg PO TID 30 Days #90 tab 06/09/21 [Rx Confirmed 02/25/22] niacin 500 mg tablet 500 mg PO DAILY 30 Days #30 tab 06/09/21 [Rx Confirmed 02/25/22] potassium chloride 10 mEq tablet,extended release (Klor-Con) 10 meq PO DAILY 30 Days #30 tab 06/09/21 [Rx Confirmed 02/25/22] Anoro Ellipta 62.5 mcg INHALATION DAILY 08/02/21 [History Confirmed 02/25/22] budesonide 180 mcg/actuation breath activated powder inhaler (Pulmicort Flexhaler) 360 mcg INHALATION BID 08/02/21 [History Confirmed 02/25/22] bumetanide 1 mg tablet 1.5 mg PO DAILY 08/02/21 [History Confirmed 02/25/22] metoprolol succinate 50 mg tablet,extended release 24 hr 50 mg PO DAILY 08/02/21[History Confirmed 02/25/22] aspirin 81 mg tablet,delayed release 81 mg PO DAILY 02/25/22 [History Confirmed 02/25/22] methimazole 5 mg tablet mg 02/25/22 [History Confirmed 02/25/22] propranolol 10 mg tablet 10 mg PO TID 02/25/22 [History Confirmed 02/25/22] Dictated By: Chivo Keller II, DO DD/ Signed By: <Electronically signed by Chivo Keller II, DO> 02/27/22 1252 [facility] Work Phone: [phone] 734-803911-16-2021 Consult note Author Nikunj Shultz [facility] August 31, 2021 9:50am Note Date/Time August 31, 2021 9:33[facility] at [address] [address] Hem/Onc Consult Note - OP Signed Patient: Nas Ren MR#: [id number] : 1940 Acct:[id number] Age/Sex: 81 / M Type: REG RCR Copies to: MD Arnie Lui DO~ HPI Date/Time of Service: Date of Service: 08/31/2021 Time of Service: 09:32 Referring Provider/PCP: Referring Provider: Kalia Sánchez MD PCP: Arnie Linda DO - History of Present Illness Reason for Consultation: Colon cancer Chief Complaint: Patient is here today for referral from Dr Sánchez for colon cancer HPI: This is a 81-year-old gentleman who presented with spontaneous streptococcal septicemia. Colonoscopy was recommended and patient was taken to colonoscopy with the finding of a malignant polyp. 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 0 of 17 lymph nodes were involved, T2N0. Preoperatively CT scan was done and there was noted a small hypodensity in the dome of the liver thought to be a cyst. The patient has a brother who of colon cancer. I have also taken care of the patient's son who has Glo-Blackfan anemia. The son's daughter also has Glo-Blackfan anemia. and Mrs. Ren were tested for Glo-Blackfan anemia genetic mutation but this was negative. The patient is presenting today in consultation August 31, 2021. He has recovered well from surgery. [facility] - Medical History Medical History: Medical History (Last Reviewed 08/31/21 @ 08:58 by Quin Bolden) A-fib hx ablation Anemia Arthritis CHF (congestive heart failure) Chicken pox Colon cancer COPD (chronic obstructive pulmonary disease) Coronary artery disease Diabetes mellitus, type 2 Hypercholesteremia Hyperlipidemia Hypertension Sleep apnea uses c-pap Wears hearing aid in left ear - Surgical History Surgical History: Surgical History (Last Reviewed 08/31/21 @ 08:58 by Quin Bolden) History of left knee replacement Pacemaker - Family History Family History: Family History (Last Reviewed 08/31/21 @ 08:58 by Quin Bolden) Father CHF (congestive heart failure) Mother Diabetes mellitus, type 2 Brother Cancer Son Blackfan Glo anemia - Social History Smoking Status: Former smoker Tobacco Type: cigarettes Substance Use Type: None Home Medications & Allergies Allergies Xxdamyh-RFF-HzJ Reductase Inhibitor [Cxisfws-Hhf-Quh Reductase Inhibitor] Allergy (Verified 08/31/21 08:57) Muscle Pain tramadol Allergy (Verified 08/31/21 08:57) Itching Home Medications allopurinol 100 mg tablet 100 mg PO DAILY 30 Days #30 tab 06/09/21 [Rx Confirmed 08/31/21] cholecalciferol (vitamin D3) 125 mcg (5,000 unit) capsule 125 mcg PO DAILY 30 Days #30 cap 06/09/21 [Rx Confirmed 08/31/21] ferrous sulfate 324 mg (65 mg iron) tablet,delayed release 324 mg PO DAILY 30 Days #30 tab 06/09/21 [Rx Confirmed 08/31/21] hydralazine 100 mg tablet 100 mg PO TID 30 Days #90 tab 06/09/21 [Rx Confirmed 08/31/21] niacin 500 mg tablet 500 mg PO DAILY 30 Days #30 tab 06/09/21 [Rx Confirmed 08/31/21] potassium chloride 10 mEq tablet,extended release (Klor-Con) 10 meq PO DAILY 30 Days #30 tab 06/09/21 [Rx Confirmed 08/31/21] Anoro Ellipta 62.5 mcg INHALATION DAILY 08/02/21 [History Confirmed 08/31/21] budesonide 180 mcg/actuation breath activated powder inhaler (Pulmicort Flexhaler) 360 mcg INHALATION BID 08/02/21 [History Confirmed 08/31/21] bumetanide 1 mg tablet 1 mg PO DAILY 08/02/21 [History Confirmed 08/31/21] metoprolol succinate 50 mg tablet,extended release 24 hr 50 mg PO DAILY 08/02/21[History Confirmed 08/31/21] Objective - Height/Weight Height/Weight: Height 5 ft 11 in Weight 90.718 kg - Vital Signs Vital Signs: 08/31/21 09:01 Temperature 98.0 F Pulse Rate [Left Brachial] 77 Respiratory Rate 20 Blood Pressure [Right Arm] 142/80 H 02 Sat by Pulse Oximetry 98 Physical Exam Narrative: The patient is 81 years old and appears very well for his age. Eyes are anicteric. Neck shows no lymphadenopathy or JVD. Lungs are audibly with good air exchange. Neurological exam is grossly intact. Psychiatric exam shows a normal affect. - ECOG Performance Status ECOG Score: 0 Assessment and Plan - TNM Staging Staging: T2N0M0 colon cancer stage I colon cancer (1) Colon cancer T2 N0 M0, stage I colon cancer. The patient has a brother who of colon cancer. The patient's son has Glo-Blackfan anemia. The patient has been tested for the same genetic mutation and is negative. I discussed at length the treatment of colon cancer and reviewed the indicationsfor adjuvant systemic chemotherapy. Given the patient's stage I, T2N0 disease there are no indications for systemic adjuvant chemotherapy. I will recommend surveillance with CEA and lab work every 3 months, imaging every 6 months. The patient will need to be genetically tested for Bravo syndrome and potentially others. Literature is reviewed and I can see no link with Glo-Blackfan anemia and colon cancer or Bravo syndrome. [facility] and refer the patient for genetic testing. - Time with Patient Coordination of Care & Counseling Time: Greater than 50% of time spent with patient was for coordination of care (as documented) and sxak-ma-jytr counseling of patient and/or family. Dictated By: Nikunj Shultz MD DD/ Signed By: <Electronically signed by MD Nikunj Shultz> 08/31/21 0950 [facility] Work Phone: Evaluation note* Diagnosis Onset Date Resolution Status Colon cancer acute [facility] Work Phone: Evaluation noteNo [employer] Other History and physical note Author Ramesh Rascon [facility] July 21, 2022 9:27am Note Date/Time July 21, 2022 9: 27am [facility] [address] [place] [address] Gastroenterology H&P Signed Patient: Nas Ren MR#: [id number] : 1940 Acct:[id number] Age/Sex: 82 / M Adm Date: 2 Loc: Room: Type: [facility] Attending Dr: Ramesh Rascon MD Copies to: DO Ramesh Lauren MD~ Date of Service: 07/21/2022 HISTORY & PHYSICAL: Patient's history with special attention to the cardiovascular, pulmonary systems and the current problem was reviewed with the patient immediately prior to the procedure. Present medications and doses reviewed in the EMR. Allergies and pertinent laboratory tests were also reviewedat this time in the EMR. The physical examination, as below, was then performed. Indication, assessment and HPI: 82-year-old male with a history of right colon adenocarcinoma with mucinous features, s/p right hemicolectomy with ileocolonic anastomosis presents for surveillance Family history of GI malignancy? No PHYSICAL EXAMINATION Mouth and Pharynx : Moist mucus membranes, normal dentition Cardiac: Regular rate, regular rhythm Pulmonary: Clear to auscultation bilaterally, no wheezing Neurological: Alert and oriented x3, no focal deficits noted Abdomen: Abdomen soft, non-tender REVIEW OF SYSTEMS Constitutional: Denies malaise, fevers Cardiovascular: Denies chest pain, palpitations Respiratory: Denies shortness of breath, wheezing Gastrointestinal: Per HPI Genitourinary: Denies dysuria, polyuria Musculoskeletal: Denies joint swelling, joint stiffness Neurological: Denies numbness, tingling Integumentary: Denies rashes, skin lesions Endocrine: Denies fatigue, weight loss Written informed consent obtained from the patient. Risks (including but not limited to perforation, infection, bloating, bleeding, need for emergent surgeryand loss of life), benefits and alternatives explained and questions answered. The patient verbalized understanding. Based on history patient is an appropriate candidate for the procedure. Ramesh Rascon MD Documented By: Ramesh Rascon MD 07/21/22925 Signed By: <Electronically signed by Ramesh Rascon MD> 07/21/22926 [facility] Work Phone: History general Narrative - Reported* Type Description Date Medical History Thyrotoxicosis Medical History Acute blood loss anemia Medical History Complete heart block Medical History Hyperuricemia Medical History Psoas abscess Medical History Hyperlipidemia type II Medical History Other eosinophilia Medical History Hypokalemia Medical History Lumbar spondylosis Medical History Chronic venous insufficiency Medical History Paroxysmal atrial flutter Medical History Type 2 diabetes anatoly itus with hyperglycemia, without long-term current use of insulin Medical History Chronic systolic congestive hear t failure Medical History Nonischemic dilated cardiomyopat hy Medical History Obstructive sleep apnea Medical History Type 2 diabetes anatoly itus with chronic kidney disease, without long-term current use of insulin, unspecified CKD stage Medical History Hypertensive chronic kidney disease with stage 1 through stage 4 chronic kidney disease, or unspecified chronic kidney disease Medical History Hyperthyroidism Medical History Cardiac pacemaker Surgical History Left tka 08/2016 Surgical History Cyst removal x 2 Surgical History cardiac ablation 2019 Surgical History INSERTION OF DUAL LEAD PACEMAKE R 02/02 Surgical History HEMICOLECTOMY, RIGHT 08/2021 Surgical History RHC- RIGHT HEART CATH 03/2016- Surgical History LHC- LEFT HEART CATH 04/2016 Hospitalization History See above Generate Other HisInnolume general Narrative - Reported* Type Description Date Medical History Thyrotoxicosis Medical History Acute blood loss anemia Medical History Complete heart block Medical History Hyperuricemia Medical History Psoas abscess Medical History Hyperlipidemia type II Medical History Other eosinophilia Medical History Hypokalemia Medical History Lumbar spondylosis Medical History Chronic venous insufficiency Medical History Paroxysmal atrial flutter Medical History Type 2 diabetes anatoly itus with hyperglycemia, without long-term current use of insulin Medical History Chronic systolic congestive hear t failure Medical History Nonischemic dilated cardiomyopat hy Medical History Obstructive sleep apnea Medical History Type 2 diabetes anatoly itus with chronic kidney disease, without long-term current use of insulin, unspecified CKD stage Medical History Hypertensive chronic kidney disease with stage 1 through stage 4 chronic kidney disease, or unspecified chronic kidney disease Medical History Hyperthyroidism Medical History Cardiac pacemaker Surgical History Left tka 08/2016 Surgical History Cyst removal x 2 Surgical History cardiac ablation 2019 Surgical History INSERTION OF DUAL LEAD PACEMAKE R 02/02 Surgical History HEMICOLECTOMY, RIGHT 08/2021 Surgical History RHC- RIGHT HEART CATH 03/2016-0 Surgical History LHC- LEFT HEART CATH 04/2016 Surgical History Colonoscopy w/ polypectomy, rep eat in year 07/2022 Hospitalization History See above Generate Other Hissifc general Narrative - Reported* Type Description Date Medical History Thyrotoxicosis Medical History Acute blood loss anemia Medical History Complete heart block Medical History Hyperuricemia Medical History Psoas abscess Medical History Hyperlipidemia type II Medical History Other eosinophilia Medical History Hypokalemia Medical History Lumbar spondylosis Medical History Chronic venous insufficiency Medical History Paroxysmal atrial flutter Medical History Type 2 diabetes anatoly itus with hyperglycemia, without long-term current use of insulin Medical History Chronic systolic congestive hear t failure Medical History Nonischemic dilated cardiomyopat hy Medical History Obstructive sleep apnea Medical History Type 2 diabetes anatoly itus with chronic kidney disease, without long-term current use of insulin, unspecified CKD stage Medical History Hypertensive chronic kidney disease with stage 1 through stage 4 chronic kidney disease, or unspecified chronic kidney disease Medical History Hyperthyroidism Medical History Cardiac pacemaker Surgical History Left tka 08/2016 Surgical History Cyst removal x 2 Surgical History cardiac ablation 2019 Surgical History INSERTION OF DUAL LEAD PACEMAKE R 02/02 Surgical History HEMICOLECTOMY, RIGHT 08/2021 Surgical History RHC- RIGHT HEART CATH 03/2016-0 Surgical History LHC- LEFT HEART CATH 04/2016 Surgical History Colonoscopy w/ polypectomy, rep eat in year 07/2022 Surgical History Biventricular ICD 05/2023 Hospitalization History See above Generate Other Hospital Discharge instructions Additional Instructions DISCHARGE INSTRUCTIONS FOR COLONOSCOPY WHAT TO EXPECT: - You may feel full, gassy or cramping after your procedure. In some cases, this may be from a few hours to a day. Walking may help relieve the discomfort. - If you have polyp(s) removed you may note some minor bloody discharge after your first bowel movements. - You should begin to recover from anesthesia within 1 hour of the procedure, however may feel groggy for the next 24 hours. DO's AND DON'Ts: - Call your doctor right away if you have a hard abdomen, severe pain, are passing lots of bright red blood or clots. - Call your doctor if you develop any rashes, hives or difficulty breathing. - Let your doctor know if you have not had a bowel movement by 3 days after your procedure. - If you take 81 mg aspirin for your heart it is safe to resume this medication. - If you take other blood thinner medications your doctor will instruct you when these can safely be resumed. - Do NOT drive for 24 hours. - Do NOT operate machinery such as power tools, lawn mowers, snow blowers, sewing machines, etc. for 24 hours. - Avoid alcoholic beverages and drugs for allergies, nerves, or sleep. - Do NOT stay alone. Do NOT leave your child unattended. - Do NOT make important personal or business decisions or sign any legal documents. - Eat solid foods and drink liquids in smaller amounts than usual until normal appetite returns. If you should experience an upset stomach, liquids high in sugar content (soda, Won-Aid, non-acid juices) are recommended. - You can resume normal activities tomorrow. FOLLOW UP & RECOMMENDATIONS: - Follow-up with Dr. Rascon as needed - Notify the doctor if you have any problems. - Dr. Rascon's office will notify you when you need a repeat - Follow up with PCP. - Office number [phone].[facility] Work Phone: Progress note Author Leigha Nelson [facility] June 03, 2022 10:35am Note Date/Time June 03, 2022 10 :10am [facility] [place] [address] Hem/Onc Follow Up Note - OP Signed Patient: Nas Ren MR#: [id number] : 1940 Acct:[id number] Age/Sex: 82 / M Type: REG RCR Copies to: MD Arnie Lui DO Timothy J Adamowicz, II, DO~ Date of Service: 06/03/2022 Time of Service: 10:07 - Assessment & Plan (1) Colon cancer Plan: T2 N0 M0, stage I colon cancer resected in late 2020. Did not require adjuvant chemotherapy The patient has a brother who of colon cancer. The patient's son has Glo-Blackfan anemia. The patient has been tested for the same genetic mutation and is negative. [facility] colorectal germline panel was negative. No evidence of disease on CT imaging in February 2022. We will scan him every 3 to 6 months for 2 years and yearly through year 5. He should probably have another colonoscopy in late 2021 or early 2022. Will continue to monitor CEAs as well. May 2022 CEA WNL/stable. CT scans with no evidence of recurrence Scheduled for colonoscopy on 07/21/[address] Rascon Iron deficiency anemia d/t chronic blood loss, malabsorption has been on oral iron for years May 2022 labs with persistent low iron at saturation of 11%. Will plan to replete with IV Injectafer x 2 doses Follow Up Instructions: IV Injectafer x 2 doses cbc, cmp, cea in 3mo CT c/a/p in 3mo follow-up in 3mo - History of Present Illness Chief Complaint: Patient is here for a 3 month follow up with labs and CT scans 05/31/2022 for review. No concerns voiced at this time. HPI: 81-year-old male previously cared for by Dr. Shultz Past medical history includes COPD, type 2 diabetes, stage III renal disease, history of atrial fibrillation status post ablation, hypertension, hyperlipidemia, chronic anemia,type 2 diabetes, gout, heart disease. He has a pacemaker that was placed in January 2020. Outpatient medications include metoprolol, Imdur, Bumex, hydralazine, aspirin, niacin, allopurinol, iron, amlodipine, benazepril, clonidine, carvedilol, Tradjenta, Pulmicort, Anoro. presented in late 2020 presented to the hospital with a streptococcal septicemia. 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 Psoas abscesses drained by interventional radiology on 05/27. In late June he completed 6 weeks of IV ceftriaxone. Ortho spine recommended conservative management of presumed lumbar discitis/osteomyelitis. Work-up included a colonoscopy and note was made of a malignant polyp. 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 0 of 17 lymph nodes were involved, T2N0. Preoperatively CT scan was done and there was noted a small hypodensity in the dome of the liver thought to be a cyst. He has a significant family history of colon cancer. He had a brother who of colon cancer. Also his son has Glo-Blackfan anemia and Dr. Shultz took care of him for many years. The son's daughter also has Glo-Blackfan anemia. and Mrs. Ren were tested for Glo-Blackfan anemia genetic mutation but this was negative. He had seen Dr. Shultz. Did not require chemotherapy. 02/25/22 recent diagnosis graves disease and hyperthyroid symptoms. He is due for another colonoscopy in june per the patient. CT of the chest abdomen and pelvis with IV contrast from February [address] evidence of tumor recurrence or metastatic disease in the chest abdomen or pelvis. Persistent splenic granuloma, small right adrenal adenoma. Cystic changes in the kidneys. 06/03/22 energy is improved since starting cardiac rehab denies shortness of breath, chest pain, n/v/d/c. No new pain or other new complaints CT scans AMY, labs with low iron, hgb 11.1 despite iron supplementation for manyyears - Physical Exam ECOG PS: 0 General : patient is alert and oriented to person place and time, no acute distress. Neck: no JVD or thyromegaly. Lymph: no cervical, supraclavicular, axillary adenopathy. Heart: regular rate and rhythm no murmurs rubs or gallops. Abdomen: soft nontender nondistended, no hepatosplenomegaly. Lungs: cta bl, no wheezes, rales, rhonchi Extremities: no clubbing cyanosis. - Time with Patient Coordination of Care & Counseling Time: Greater than 50% of time spent with patient was for coordination of care (as documented) and [id number] counseling of patient and/or family. [facility] - Medical History Medical History: Medical History (Last Updated 06/03/22 @ 09:58 by Celia Barron) A-fib hx ablation Anemia Arthritis CHF (congestive heart failure) Chicken pox Colon cancer COPD (chronic obstructive pulmonary disease) Coronary artery disease Diabetes mellitus, type 2 Hypercholesteremia Hyperlipidemia Hypertension Hyperthyroidism Sleep apnea uses c-pap Wears hearing aid in left ear - Surgical History Surgical History: Surgical History (Last Reviewed 08/31/21 @ 08:58 by Quin Bolden) History of left knee replacement Pacemaker - Family History Family History: Family History (Last Reviewed 08/31/21 @ 08:58 by Quin Bolden) Father CHF (congestive heart failure) Mother Diabetes mellitus, type 2 Brother Cancer Son Blackfan Glo anemia - Social History Smoking Status: Former smoker Tobacco Type: cigarettes Substance Use Type: None Additional Data - Additional Objective Data Height/Weight: Height 5 ft 11 in Weight 92.85 kg Vital Signs: 06/03/22 09:55 Temperature 97.4 F L Pulse Rate [Left Brachial] 60 Respiratory Rate 20 Blood Pressure [Right Arm] 134/64 02 Sat by Pulse Oximetry 98 Oxygen Delivery Method Room Air - Lab Results Diagram of Most Recent CBC and CMP 05/31/22 11:37 05/31/22 11:37 Labs - Last 7 Days 05/31/22 11:41: POC Creatinine 2.4 H, POC eGFR Amer 32, POC eGFR Non- Afric Amer 26 05/31/22 11:37: Carcinoembryonic Ag 1.8 05/31/22 11:37: PHA Creatinine Clear 31.14, Sodium 140, Potassium 4.4, Chloride 101, Carbon Dioxide 29.7, BUN 42 H, Creatinine 2.23 H, Est GFR ( Amer) 34, Est GFR (Non-Af Amer) 28, Glucose 108 H, Calcium 9.5, Total Bilirubin 0.5, AST 22, ALT 17, Alkaline Phosphatase 140 H, Total Protein 7.3, Albumin 3.9, Globulin 3.4, Albumin/Globulin Ratio 1.1 05/31/22 11:37: Corrected WBC 8.8, Uncorrected WBC Count 8.8, RBC 3.81 L, Hgb 11.1 L, Hct 33.6 L, MCV 88.2, MCH 29.2, MCHC 33.1, RDW 16.4 H, Plt Count 308, MPV 7.0, Neut % (Auto) 69.9, Lymph % (Auto) 17.2, Dane % (Auto) 8.0, Eos % (Auto) 4.1, Baso % (Auto) 0.8, Neut # (Auto) 6.2, Lymph # (Auto) 1.5, Dane # (Auto) 0.7, Eos # (Auto) 0.4, Baso # (Auto) 0.1, Nucleated RBC % (auto) 0.0 - Home Medications and Allergies Allergies/Adverse Reactions: Allergies Hceykgi-LMM-AzG Reductase Inhibitor [Qnneqph-Opv-Bbm Reductase Inhibitor] Allergy (Verified 06/03/22 09:55) Muscle Pain tramadol Allergy (Verified 06/03/22 09:55) Itching Home Medications: Home Medications allopurinol 100 mg tablet 100 mg PO DAILY 30 days #30 tabs 06/09/21 [Rx Confirmed 06/03/22] cholecalciferol (vitamin D3) 125 mcg (5,000 unit) capsule 125 mcg PO DAILY 30 days #30 caps 06/09/21 [Rx Confirmed 06/03/22] ferrous sulfate 324 mg (65 mg iron) tablet,delayed release 324 mg PO DAILY 30 days #30 tabs 06/09/21 [Rx Confirmed 06/03/22] hydralazine 100 mg tablet 100 mg PO TID 30 days #90 tabs 06/09/21 [Rx Confirmed 06/03/22] niacin 500 mg tablet 500 mg PO DAILY 30 days #30 tabs 06/09/21 [Rx Confirmed 06/03/22] potassium chloride 10 mEq tablet,extended release (Klor-Con) 10 meq PO DAILY 30 days #30 tabs 06/09/21 [Rx Confirmed 06/03/22] Anoro Ellipta 62.5 mcg inhalation DAILY copd 08/02/21 [History Confirmed 06/03/22] budesonide 180 mcg/actuation breath activated powder inhaler (Pulmicort Flexhaler) 360 mcg inhalation BID copd 08/02/21 [History Confirmed 06/03/22] bumetanide 1 mg tablet 1 mg PO DAILY 08/02/21 [History Confirmed 06/03/22] metoprolol succinate 50 mg tablet,extended release 24 hr 100 mg PO DAILY 08/02/21 [History Confirmed 06/03/22] aspirin 81 mg tablet,delayed release 81 mg PO DAILY 02/25/22 [History Confirmed 06/03/22] methimazole 5 mg tablet 20 mg PO BID 02/25/22 [History Confirmed 06/03/22] propranolol 10 mg tablet 10 mg PO TID 02/25/22 [History Confirmed 06/03/22] Dictated By: Leigha Nelson APRN DD/ [id number] Signed By: <Electronically signed by EDWARD Nelson> 06/03/22 1035 [facility] Work Phone: Progress note Author Chivo Keller [facility] September 02, 2022 2:38pm Note Date/Time September 02, 2022 2:33pm [facility] [place] [address] Hem/Onc Follow Up Note - OP Signed Patient: Nas Ren MR#: [id number] : 1940 Acct:[id number] Age/Sex: 82 / M Type: REG RCR Copies to: MD Arnie Lui,DO~ Date of Service: 09/02/2022 Time of Service: 14:31 - Assessment & Plan (1) Colon cancer Plan: T2 N0 M0, stage I colon cancer resected in late 2020. Did not require adjuvant chemotherapy The patient has a brother who of colon cancer. The patient's son has Glo-Blackfan anemia. The patient has been tested for the same genetic mutation and is negative. [facility] colorectal germline panel was negative. No evidence of disease on CT imaging in February 2022. We will scan him every 3 to 6 months for 2 years and yearly through year 5. He should probably have another colonoscopy in late 2021 or early 2022. Will continue to monitor CEAs as well. May 2022 CEA WNL/stable. CT scans with no evidence of recurrence aug 2022 scans no evidence of disease. repeat colonoscopy in jul 2022 was with a few polyps. recommend repeat colonoscopy in jul 2023. Iron deficiency anemia d/t chronic blood loss, malabsorption has been on oral iron for years May 2022 IV Injectafer x 2 doses. Follow Up Instructions: iron studies, cbc, cea, cmp prior to f/u in [address] a/p with contrst prior to f/u in 6 mos. - History of Present Illness Chief Complaint: Patient is here for a 3 month follow up with labs and scans forreview. No concerns voiced at this time. HPI: 81-year-old male previously cared for by Dr. Shultz Past medical history includes COPD, type 2 diabetes, stage III renal disease, history of atrial fibrillation status post ablation, hypertension, hyperlipidemia, chronic anemia,type 2 diabetes, gout, heart disease. He has a pacemaker that was placed in January 2020. Outpatient medications include metoprolol, Imdur, Bumex, hydralazine, aspirin, niacin, allopurinol, iron, amlodipine, benazepril, clonidine, carvedilol, Tradjenta, Pulmicort, Anoro. presented in late 2020 presented to the hospital with a streptococcal septicemia. 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 Psoas abscesses drained by interventional radiology on 05/27. In late June he completed 6 weeks of IV ceftriaxone. Ortho spine recommended conservative management of presumed lumbar discitis/osteomyelitis. Work-up included a colonoscopy and note was made of a malignant polyp. 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 0 of 17 lymph nodes were involved, T2N0. Preoperatively CT scan was done and there was noted a small hypodensity in the dome of the liver thought to be a cyst. He has a significant family history of colon cancer. He had a brother who of colon cancer. Also his son has Glo-Blackfan anemia and Dr. Shultz took care of him for many years. The son's daughter also has Glo-Blackfan anemia. and Mrs. Ren were tested for Glo-Blackfan anemia genetic mutation but this was negative. He had seen Dr. Shultz. Did not require chemotherapy. 02/25/22 recent diagnosis graves disease and hyperthyroid symptoms. He is due for another colonoscopy in june per the patient. CT of the chest abdomen and pelvis with IV contrast from February [address] evidence of tumor recurrence or metastatic disease in the chest abdomen or pelvis. Persistent splenic granuloma, small right adrenal adenoma. Cystic changes in the kidneys. 06/03/22 energy is improved since starting cardiac rehab denies shortness of breath, chest pain, n/v/d/c. No new pain or other new complaints CT scans AMY, labs with low iron, hgb 11.1 despite iron supplementation for manyyears - Physical Exam ECOG PS: 0 General : patient is alert and oriented to person place and time, no acute distress. Neck: no JVD or thyromegaly. Lymph: no cervical, supraclavicular, axillary adenopathy. Heart: regular rate and rhythm no murmurs rubs or gallops. Abdomen: soft nontender nondistended, no hepatosplenomegaly. Lungs: cta bl, no wheezes, rales, rhonchi Extremities: no clubbing cyanosis. - Time with Patient Coordination of Care & Counseling Time: Greater than 50% of time spent with patient was for coordination of care (as documented) and [id number] counseling of patient and/or family. [facility] - Medical History Medical History: Medical History (Last Reviewed 07/21/22 @ 08:16 by Bev Mustafa RN) A-fib hx ablation Anemia Arthritis CHF (congestive heart failure) Chicken pox Colon cancer COPD (chronic obstructive pulmonary disease) Coronary artery disease Diabetes mellitus, type 2 Hypercholesteremia Hyperlipidemia Hypertension Hyperthyroidism Sleep apnea uses c-pap Wears hearing aid in left ear - Surgical History Surgical History: Surgical History (Last Reviewed 07/21/22 @ 08:16 by Bev Mustafa RN) History of left knee replacement Pacemaker - Family History Family History: Family History (Last Reviewed 08/31/21 @ 08:58 by Quin Bolden) Father CHF (congestive heart failure) Mother Diabetes mellitus, type 2 Brother Cancer Son Blackfan Glo anemia - Social History Smoking Status: Former smoker Tobacco Type: cigarettes Substance Use Type: None Additional Data - Additional Objective Data Height/Weight: Height 5 ft 11 in Weight 98.9 kg Vital Signs: 09/02/22 14:11 Pulse Rate [Left Brachial] 60 Respiratory Rate 20 Blood Pressure [Right Arm] 153/72 H 02 Sat by Pulse Oximetry 96 Oxygen Delivery Method Room Air - Lab Results Diagram of Most Recent CBC and CMP 08/31/22 10:00 08/31/22 10:00 Labs - Last 7 Days 08/31/22 10:00: Carcinoembryonic Ag 2.5 08/31/22 10:00: PHA Creatinine Clear 26.08, Sodium 135 L, Potassium 3.4 L, Chloride 98, Carbon Dioxide 31.0 H, Anion Gap 9.4, BUN 40 H, Creatinine 2.63 H, Est GFR ( Amer) 29, Est GFR (Non-Af Amer) 24, Glucose 104 H, Calcium 8.9,Total Bilirubin 0.8, AST 32, ALT 26, Alkaline Phosphatase 112 H, Total Protein 6.7, Albumin 3.9, Globulin 2.8, Albumin/Globulin Ratio 1.4 08/31/22 10:00: Corrected WBC 6.7, Uncorrected WBC Count 6.7, RBC 4.00, Hgb 12.4L, Hct 37.2 L, MCV 92.9, MCH 31.0, MCHC 33.4, RDW 15.7 H, Plt Count 238, MPV 6.8, Neut % (Auto) 68.3, Lymph % (Auto) 18.5, Dane % (Auto) 8.4, Eos % (Auto) 4.3, Baso % (Auto) 0.5, Neut # (Auto) 4.6, Lymph # (Auto) 1.2, Dane # (Auto) 0.6, Eos # (Auto) 0.3, Baso # (Auto) 0.0, Nucleated RBC % (auto) 0.1 - Home Medications and Allergies Allergies/Adverse Reactions: Allergies Kfpaucv-UCV-SxQ Reductase Inhibitor [Cmzmazh-Hue-Yam Reductase Inhibitor] Allergy (Verified 09/02/22 14:10) Muscle Pain tramadol Allergy (Verified 09/02/22 14:10) Itching Home Medications: Home Medications allopurinol 100 mg tablet 100 mg PO DAILY 30 days #30 tabs 06/09/21 [Rx Confirmed 09/02/22] cholecalciferol (vitamin D3) 125 mcg (5,000 unit) capsule 125 mcg PO DAILY 30 days #30 caps 06/09/21 [Rx Confirmed 09/02/22] hydralazine 100 mg tablet 100 mg PO TID 30 days #90 tabs 06/09/21 [Rx Confirmed 09/02/22] niacin 500 mg tablet 500 mg PO DAILY 30 days #30 tabs 06/09/21 [Rx Confirmed 09/02/22] potassium chloride 10 mEq tablet,extended release (Klor-Con) 10 meq PO DAILY 30 days #30 tabs 06/09/21 [Rx Confirmed 09/02/22] Anoro Ellipta 62.5 mcg inhalation DAILY copd 08/02/21 [History Confirmed 09/02/22] budesonide 180 mcg/actuation breath activated powder inhaler (Pulmicort Flexhaler) 360 mcg inhalation BID copd 08/02/21 [History Confirmed 09/02/22] bumetanide 1 mg tablet 1 mg PO DAILY 08/02/21 [History Confirmed 09/02/22] metoprolol succinate 50 mg tablet,extended release 24 hr 100 mg PO DAILY 08/02/21 [History Confirmed 09/02/22] aspirin 81 mg tablet,delayed release 81 mg PO DAILY 02/25/22 [History Confirmed 09/02/22] methimazole 5 mg tablet 20 mg PO BID 02/25/22 [History Confirmed 09/02/22] amlodipine 10 mg tablet 10 mg PO DAILY 07/21/22 [History Confirmed 09/02/22] isosorbide dinitrate 10 mg tablet 10 mg PO TID 07/21/22 [History Confirmed 09/02/22] Dictated By: Chivo Keller II, DO DD/ 1431 Signed By: <Electronically signed by Chivo Keller II, DO> 09/02/22 1438 [facility] Work Phone: Progress note Author Chivo Keller [facility] September 01, 2023 2:14pm Note Date/Time September 01, 2023 2:09pm [facility] at [address] [address] Hem/Onc Follow Up Note - OP Signed Patient: Nas Ren MR#: [id number] : 1940 Acct:[id number] Age/Sex: 83 / M Type: REG RCR Copies to: MD Arnie Lui,~ Date of Service: 09/01/2023 Time of Service: 14:08 - Assessment & Plan (1) Colon cancer Plan: T2 N0 M0, stage I colon cancer resected in late 2020. Did not require adjuvant chemotherapy The patient has a brother who of colon cancer. The patient's son has Glo-Blackfan anemia. The patient has been tested for the same genetic mutation and is negative. [facility] colorectal germline panel was negative. No evidence of disease on CT imaging in February 2022. We will scan him every 3 to 6 months for 2 years and yearly through year 5. Colonoscopy scheduled for late [address]23. Dr. Rascon. Will continue to monitor CEAs as well. May 2022 CEA WNL/stable. CT scans with no evidence of recurrence aug 2022 scans no evidence of disease. repeat colonoscopy in jul 2022 was with a few polyps. recommend repeat colonoscopy in jul 2023. February [address] scans without changes/concerns. Labs remain stable including CEA. aug [address] ct imaigng without recurrence. Iron deficiency anemia d/t chronic blood loss, malabsorption has been on oral iron for years May 2022 IV Injectafer x 2 doses. February 2023 iron studies ok. Follow Up Instructions: f/u in [address] c/a/p withotu conttrsast. cbc, cmp, spep sflc simmunofixation, cea b12, folate, iron studies prior to f/u - History of Present Illness Chief Complaint: Patient is here for a 6 month follow up with labs and imaging for review. No concerns voiced at this time. HPI: 81-year-old male previously cared for by Dr. Shultz Past medical history includes COPD, type 2 diabetes, stage III renal disease, history of atrial fibrillation status post ablation, hypertension, hyperlipidemia, chronic anemia,type 2 diabetes, gout, heart disease. He has a pacemaker that was placed in January 2020. Outpatient medications include metoprolol, Imdur, Bumex, hydralazine, aspirin, niacin, allopurinol, iron, amlodipine, benazepril, clonidine, carvedilol, Tradjenta, Pulmicort, Anoro. presented in late 2020 presented to the hospital with a streptococcal septicemia. 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 Psoas abscesses drained by interventional radiology on 05/27. In late June he completed 6 weeks of IV ceftriaxone. Ortho spine recommended conservative management of presumed lumbar discitis/osteomyelitis. Work-up included a colonoscopy and note was made of a malignant polyp. 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 0 of 17 lymph nodes were involved, T2N0. Preoperatively CT scan was done and there was noted a small hypodensity in the dome of the liver thought to be a cyst. He has a significant family history of colon cancer. He had a brother who of colon cancer. Also his son has Glo-Blackfan anemia and Dr. Shultz took care of him for many years. The son's daughter also has Glo-Blackfan anemia. Mr. and Mrs. Ren were tested for Glo-Blackfan anemia genetic mutation but this was negative. He had seen Dr. Shultz. Did not require chemotherapy. 02/25/22 recent diagnosis graves disease and hyperthyroid symptoms. He is due for another colonoscopy in june per the patient. CT of the chest abdomen and pelvis with IV contrast from February [address] evidence of tumor recurrence or metastatic disease in the chest abdomen or pelvis. Persistent splenic granuloma, small right adrenal adenoma. Cystic changes in the kidneys. 06/03/22 energy is improved since starting cardiac rehab denies shortness of breath, chest pain, n/v/d/c. No new pain or other new complaints CT scans AMY, labs with low iron, hgb 11.1 despite iron supplementation for manyyears 03/03/23 he feels great and has no complaints energy is good for his age CT scans stable without changes, labs ok, iron studies ok 09/01/23 ct c/a/p from 08/30/23 iwht no evidence of disease. Repeat colonoscopy is supposed to be next year. - Physical Exam ECOG PS: 0 General : patient is alert and oriented to person place and time, no acute distress. Neck: no JVD or thyromegaly. Lymph: no cervical, supraclavicular, axillary adenopathy. Heart: regular rate and rhythm no murmurs rubs or gallops. Abdomen: soft nontender nondistended, no hepatosplenomegaly. Lungs: cta bl, no wheezes, rales, rhonchi Extremities: no clubbing cyanosis. - Time with Patient Coordination of Care & Counseling Time: Greater than 50% of time spent with patient was for coordination of care (as documented) and [id number] counseling of patient and/or family. [facility] - Medical History Medical History: Medical History (Last Reviewed 07/21/22 @ 08:16 by Bev Mustafa RN) A-fib hx ablation Anemia Arthritis CHF (congestive heart failure) Chicken pox Colon cancer COPD (chronic obstructive pulmonary disease) Coronary artery disease Diabetes mellitus, type 2 Hypercholesteremia Hyperlipidemia Hypertension Hyperthyroidism Sleep apnea uses c-pap Wears hearing aid in left ear - Surgical History Surgical History: Surgical History (Last Reviewed 07/21/22 @ 08:16 by Bev Mustafa RN) History of left knee replacement Pacemaker - Family History Family History: Family History (Last Reviewed 08/31/21 @ 08:58 by Quin Bolden) Father CHF (congestive heart failure) Mother Diabetes mellitus, type 2 Brother Cancer Son Blackfan Glo anemia - Social History Smoking Status: Former smoker Tobacco Type: cigarettes Substance Use Type: None Additional Data - Additional Objective Data Height/Weight: Height 5 ft 11 in Weight 98.021 kg Vital Signs: 09/01/23 13:51 Temperature 97.7 F Pulse Rate [Left Brachial] 70 Respiratory Rate 20 Blood Pressure [Right Arm] 147/79 H 02 Sat by Pulse Oximetry 96 Oxygen Delivery Method Room Air - Lab Results Diagram of Most Recent CBC and CMP 08/30/23 09:32 08/30/23 09:32 Labs - Last 7 Days 08/30/23 09:32: Carcinoembryonic Ag 2.1 08/30/23 09:32: PHA Creatinine Clear 30.81, Sodium 143, Potassium 4.5, Chloride 102, Carbon Dioxide 35.5 H, Anion Gap 10.0, BUN 51 H, Creatinine 2.29 H, Est GFR(CKD- EPI) 27.976, Glucose 111 H, Calcium 9.7, Iron 84, TIBC 290, Iron Uldlaugwct93.0, Transferrin 207, Ferritin 239.3, Total Bilirubin 0.8, AST 23, ALT 20, Alkaline Phosphatase 114 H, Total Protein 6.9, Albumin 4.4, Globulin 2.5, Albumin/Globulin Ratio 1.8 08/30/23 09:32: Corrected WBC 7.0, Uncorrected WBC Count 7.0, RBC 3.96, Hgb 12.3L, Hct 36.8 L, MCV 92.8, MCH 30.9, MCHC 33.3, RDW 14.8, Plt Count 206, MPV 7.6, Neut % (Auto) 65.9, Lymph % (Auto) 21.9, Dane % (Auto) 7.9, Eos % (Auto) 3.8, Baso % (Auto) 0.5, Nucleat RBC Rel Count 0.1, Neut # (Auto) 4.6, Lymph # (Auto) 1.5, Dane # (Auto) 0.5, Eos # (Auto) 0.3, Baso # (Auto) 0.0 - Home Medications and Allergies Allergies/Adverse Reactions: Allergies Fgdlfzk-GWB-LzB Reductase Inhibitor [Xudwrpv-Zrd-Irz Reductase Inhibitor] Allergy (Verified 03/03/23 13:45) Muscle Pain tramadol Allergy (Verified 03/03/23 13:45) Itching Home Medications: Home Medications allopurinol 100 mg tablet 100 mg PO DAILY 30 days #30 tabs 06/09/21 [Rx Confirmed 09/01/23] cholecalciferol (vitamin D3) 125 mcg (5,000 unit) capsule 125 mcg PO DAILY 30 days #30 caps 06/09/21 [Rx Confirmed 09/01/23] hydralazine 100 mg tablet 100 mg PO TID 30 days #90 tabs 06/09/21 [Rx Confirmed 09/01/23] niacin 500 mg tablet 500 mg PO DAILY 30 days #30 tabs 06/09/21 [Rx Confirmed 09/01/23] potassium chloride 10 mEq tablet,extended release (Klor-Con) 10 meq PO DAILY 30 days #30 tabs 06/09/21 [Rx Confirmed 09/01/23] bumetanide 1 mg tablet 1 mg PO DAILY 08/02/21 [History Confirmed 09/01/23] metoprolol succinate 50 mg tablet,extended release 24 hr 100 mg PO DAILY 08/02/21 [History Confirmed 09/01/23] methimazole 5 mg tablet 20 mg PO BID 02/25/22 [History Confirmed 09/01/23] amlodipine 10 mg tablet 10 mg PO DAILY 07/21/22 [History Confirmed 09/01/23] isosorbide dinitrate 10 mg tablet 10 mg PO TID 07/21/22 [History Confirmed 09/01/23] apixaban 2.5 mg tablet (Eliquis) 2.5 mg PO BID 03/03/23 [History Confirmed 09/01/23] ezetimibe 10 mg tablet (Zetia) 10 mg PO DAILY 03/03/23 [History Confirmed 09/01/23] Dictated By: Chivo Keller II, DO DD/ 1408 Signed By: <Electronically signed by Chivo Keller II, DO> 09/01/23 1414 [facility] Work Phone: Summary Purpose Family History Relationship Condition Age at Onset Recorded Date/T sergio father Congestive heart failure Unknown Not Specified Type 2 diabetes mellitus Unknown brother Malignant neoplasm Unknown natural son Congenital pure red cell aplasia Unknown Advance Directives Advance Directive Response Recorded Date/ Time Advance Directives No September 22, 2017 10:28am Advance Directive Response Recorded Date/ Time Advance Directives No September 22, 2017 9:28am Chief Complaint and Reason for Visit Chief Complaint LABS Colon Cancer Reason for Visit Colon cancer Chief Complaint LABS Colon Cancer Hx of Colon Polyps Reason for Visit Colon cancer Chief Complaint LABS Colon Cancer Hx of Colon Polyps Hx of Colon Polyps Reason for Visit Colon cancer Chief Complaint Hx of Colon Polyps Hx of Colon Polyps Colon Cancer Reason for Visit Colon cancer Chief Complaint Colon Cancer Reason for Visit Colon cancer Additional Source Comments (unrecognized sect ion and content) No Status Records FoundNo Status Records FoundNo Status Records FoundNo Status Records FoundNo Status Records Found INFORMATION SOURCE (unrecogn ized section and content) DATE CREATED AUTHOR 07/09/2021 [facility] DATE CREATED AUTHOR AUTHOR'S ORGANIZ ATION 06/10/2022 [facility] DATE CREATED AUTHOR AUTHOR'S ORGANIZ ATION 03/01/2023 [facility] DATE CREATED AUTHOR AUTHOR'S ORGANIZ ATION 09/03/2023 [facility] DATE CREATED AUTHOR AUTHOR'S ORGANIZ ATION 09/24/2023 [facility] Care Teams (unrecognized sec tion and content) Team Status: Active Member Role Status Dates Arnie Linda , DO Primary Care Provider Active Team Status: Active Member Role Status Dates Arnie Linda , DO Primary Care Provider Active Kalia Sánchez MD Referring Provider Active Chivo Keller II, DO Attending Provider Active Team Status: Inactive Member Role Status Dates Arnie Linda , DO Primary Care Provider Active CHARLENE Calvin Attending Provider Activ e Team Status: Inactive Member Role Status Dates Arnie Linda , DO Primary Care Provider Active Ramesh Rascon MD Attending Provider Active Goals (unrecognized section and content) Goals may be documented in a n alternate sectionGoals may be documented in an alternate sectionGoals may be documented in an alternate sectionNo InformationNo InformationNo InformationNo InformationNo InformationNo InformationNo InformationNo InformationNo InformationNo InformationNo InformationNo InformationNo InformationNo InformationNo InformationGoals may be documented in an alternate sectionNo InformationNo Information REASON FOR VISIT (unrecogniz ed section and content) Thyroid resultsRepeat lab wo rkLab Results4 month Follow uprefillCOVID PositiveMEDICARE WELLNESSlab work FOR RECORDS PERTAINING TO PATIENTS WHO ARE OR HAVE BEEN ENROLLED IN A CHEMICAL DEPENDENCY/SUBSTANCEABUSE PROGRAM, SOME INFORMATION MAY BE OMITTED. This clinical summary was aggregated from multiple sources. Caution should be exercised in using it in the provision of clinical care. This summary normalizes information from multiple sources, and as a consequence, information in this document may materially change the coding, format and clinical context of patient data. In addition, data may be omitted in some cases. CLINICAL DECISIONS SHOULD BE BASED ON THE PRIMARY CLINICAL RECORDS. [facility]. provides no warranty or guarantee of the accuracy or completeness of information in this document.
[2023-12-19 08:11] LABS: Estimated Average Glucose 137 mg/dL; Glycohemoglobin A1C 6.4 % (4.5-6.2)
[2023-12-19 08:19] LABS: Chol HDL Ratio 3.4; Cholesterol 148 mg/dL (<=200); HDL Cholesterol 43 mg/dL (40-60); LDL Cholesterol Calculated 81.8 mg/dL; Thyroid Stimulating Hormone 11.812 uIU/mL (0.358-3.740); Triglycerides 116 mg/dL (<=150); VLDL CHOLESTEROL 23.2 mg/dL
[2023-12-19 08:38] LABS: Free T4 1.04 ng/dL (0.76-1.46)
== END 2023-12-19 07:33 | disposition home or self-care (01) ==
LOC: LAB 07:32
PROVIDERS: PCP Internal Medicine; Visit Provider Internal Medicine
DX: E11.65 Type 2 diabetes mellitus with hyperglycemia (principal); E03.2 Hypothyroidism due to medicaments and other exogenous substances; E78.00 Pure hypercholesterolemia, unspecified
CPT/HCPCS: 36415; 80061; 83036; 84439; 84443

== ENCOUNTER 2024-02-01 07:47 | Outpatient (OUT) | payer MEDICARE, SELFPAY ==
--- OUTSIDE RECORDS SUMMARY | 2024-02-01 08:06 | XMS_ITS | CCD ---
Author Organization [facility] Care Team Providers Care Analyst [employer] Name Role Phone GILMER SALAZAR Attending Unavailable GILMER SALAZAR Admitting Unavailable ARNIE LINDA Referring Unavailable ARNIE LIDNA Primary Care Unavailable DO Arnie Linda Primary Care Provider CHARLENE Kelly Attending Provider MD Kalia Sánchez Referring Provider DO Chivo Keller II Attending Provider MD Kalia Sánchez Referring Provider DO Chivo Keller II Attending Provider MD Ramesh Rascon Attending Provider [phone] DO Arnie Linda Primary Care Provider [phone] MD Ramesh Rascon Attending Provider MD Kalia Sánchez Referring Provider DO Chivo Keller II Attending Provider Arnie Linda Unavailable ROXANNE SANCHEZ Admitting Unavailable LAURA, ROXANNE Attending Unavailable LAURA, ROXANNE Consulting Unavailable MADDI, DR OSRENSON Primary Care Unavailable MISC, DR VELASQUEZ Consulting Unavailable MISC, DR VELASQUEZ Admitting Unavailable MISC, DR VELASQUEZ Attending Unavailable MADDI, DR SORENSON Primary Care Unavailable GRIGSBY ., DR RUPINDER Staples Admitting Unavailable GRIGSBY ., DR RUPINDER Staples Attending Unavailable CHAIM, DR MICHAELA Jacobson Consulting Unavailable MADDI, DR SORENSON Primary Care Unavailable GRIGSBY ., DR RUPINDER Staples Consulting Unavailable OLMEDO, NICK Consulting Unavailable GLAANTHONY ZAVALA Consulting Unavailable MADDI, DR SORENSON Consulting Unavailable MADDI, DR SORENSON Primary Care Unavailable BALL, DR [...] MD, AVERY Pedroza Attending Unavailab shaina SYED MDAVERY Consulting Unavailab le MADDI, DR SORENSON Primary Care Unavailable YISSEL, DR SEYMOUR Admitting Unavailable YISSEL, DR SEYMOUR Attending Unavailable MADDI, DR SORENSON Primary Care Unavailable Chivo Keller II Admitting UnavailKalia Tillman Referring Unavailable Arnie Linda Primary Care Unavailable Arianna APARICIO, Chivo Howell Attending UnavailDO Arnie Goodwin Primary Care Provider [phone] MD Kalia Sánchez Referring Provider DO Chivo Keller II Attending Provider MARIUSZ DEGROOT Referring Unavailable YISSEL, DAWN Attending Unavailable SHAUN ISABEL Attending Unavailable MARIUSZ DEGROOT Referring Unavailable MARIUSZ DEGROOT Admitting Unavailable MARIUSZ DEGROOT Attending Unavailable DAWN NOLASCO Attending Unavailable MARIUSZ DEGROOT Referring Unavailable MADDI SONG Attending Unavailable MALI TIDWELL Attending Unavailable MARIUSZ DEGROOT Attending Unavailable MADDI SONG Attending Unavailable Allergies Allergy Classification Reported Allergen(s) Allergy Type Date of Onset Reaction(s) Facility (3 sources) black walnut pollen extract; Translations: [[id number] REDUCTASE INHIBITORS] Drug Allergy 05-16-20 18 [facility] Repository (9 sources) traMADol; Translations: [TRAMADOL] Drug Allergy 03-30-20 22 Itching [facility] Repository (7 sources) Nuklyrz-EIV-ZuZ Reductase Inhibitor; Translations: [Bjnebbj-XAV-LsS Reductase Inhibitor] Allergy to substance 06-03-20 22 Muscle Pain [facility] (13 sources) Albuterol Drug Allergy Unknown [facility] Other (17 sources) ezetimibe Drug Allergy Unknown [facility] Other (13 sources) HMG-CoA reductase inhibitor Drug allergy Unknown [facility] Other (19 sources) Niacin Drug Allergy Unknown [facility] Other (17 sources) Simvastatin Drug Allergy Unknown [facility] Other (8 sources) Statins Depletion *DIETARY PRODUCTS/DIETARY MANAGE Propensity to adverse reactions Unknown [facility] Other (4 sources) Allergies Reconciled Propensity to adverse reactions Unknown [facility] Other (8 sources) Albuterol *ANTIASTHMATIC AND BRONCHODILATOR AGENTS Propensity to adverse reactions Comment:dedrick lala more with this [facility] Other (4 sources) patient allergy list reviewed by nurse or physicia Propensity to adverse reactions 04-04-20 Comment:Done [facility] Other (1 source) traMADol Drug Allergy 03-03-20 [facility] Repository (2 sources) Niacin Drug Allergy Unknown [facility] Other Medications Current Medications Medication Drug Class(es) [...] Inhalation Discontinued 360 mcg inhalation Twice daily 0 June 08, 2021 11:00pm August 02, 2021 12:40pm Start: 06-09-2021 End: 08-02-2021 take 360 ug by inhalation twice daily Budesonide Inhalation Discontinued 360 mcg inhalation Twice daily 0 June 09, 2021 12:00am August 02, [...] 2022 7:06am take 1 tablet by [place] every twenty-four hours Ferrous Sulfate 325 (65 [...] August 02, 2021 12:40pm polyethylene glycol 3350 81436 mg powder for oral solution (6 sources) [...] Coronary arteriosclerosis; 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] Onset: 03-09-2022 [...] 12-28-2017 Episodic Other aftercare (1 source) Other correction (current) drug therapy; Translations: [OTH ALF CURRENT DRUG THERAPY] Onset: 03-09-2022 Episodic Other [...] Range Facility Office Visiton 09-22-2023 Follow-up visit [id number] Shanti Ren 1940 M Date Provider Department Center 09/22/2023 DAWN [facility] Family History Problem Relation Age of Onset Diabetes Mother Heart disease Father Glaucoma Brother Diabetes Maternal Grandmother Clotting disorder Other Family Status - Relation Status Age at Mother Father Brother Maternal Grandmother Other Level of Service:30439 ME OFFICE/OUTPATIENT ESTABLISHED LOW MDM 20-29 MIN Normal [facility] Alanine aminotransferase [En zymatic activity/volume] in Serum or PlasmaOrdered By: Leigha Nelson on 08-30-2023 ALT [Catalytic activity/Vol] 20 U/L 7-52 [facility] Albumin [Mass/volume] in Ser um or Plasma by Bromocresol green (BCG) dye binding methoOrdered By: Leigha Nelson on 08-30-2023 Albumin BCG dye [Mass/Vol] 4.4 g/dL 3.5-5.7 [facility] Alkaline phosphatase [Enzyma tic activity/volume] in Serum or PlasmaOrdered By: Leigha Nelson on 08-30-2023 ALP [Catalytic activity/Vol] 114 U/L 34-104 [facility] Aspartate aminotransferase [ Enzymatic activity/volume] in Serum or PlasmaOrdered By: Leigha Nelson on 08-30-2023 AST [Catalytic activity/Vol] 23 U/L 13-39 [facility] Basophils Auto (Bld) [#/Vol] Ordered By: Leigha Nelson on 08-30-2023 Basophils (Bld) [#/Vol] 0.0 10*3/uL 0.0-0.2 [facility] Basophils/100 WBC Auto (Bld) Ordered By: Leigha Nelson on 08-30-2023 Basophils/100 WBC (Bld) 0.5 % . [facility] Bilirubin.total [Mass/volume ] in Serum or PlasmaOrdered By: Leigha Nelson on 08-30-2023 Bilirubin [Mass/Vol] 0.8 mg/dL 0.3-1.0 [facility] CT abdomen pelvis wo conon 1 10-30-2022 CT abdomen pelvis wo [facility] [place] [address] CT Scan Report Signed Patient: Nas Ren MR#: [id number] 24 : 1940 Acct:[id number] Age/Sex: 83 / M ADM Date: 08/30/23 Loc: Room: Type: [facility] RCR Attending Dr: Chivo Keller II DO Copies to: Leigha EDWARD Camara II, Ordering Provider: Leigha Rocha EDWARD Nelson Date of Service: 08/30/23 CT/CT chest wo con: surveillance ([id number]) CT/CT abdomen pelvis wo con: surveillance CT [...] 02/28/2023. Impression dictated by: Sotero Scott Jr., D.O.08/30/2023 1:10 PM Dictation Location: [place] [address] Transcribed By: [facility] 08/30/23 1310 Dictated By: Sotero Scott Jr, DO 08/30/23 1304 Signed By: 08/30/23 1310 Normal [facility] Calcium [Mass/volume] in Ser um or PlasmaOrdered By: Leigha Nelson on 08-30-2023 Calcium [Mass/Vol] 9.7 mg/dL 8.6-10.3 [facility] Carbon dioxide, total [Moles /volume] in Serum or PlasmaOrdered By: Leigha Nelson on 08-30-2023 CO2 [Moles/Vol] 35.5 mmol/L 21.0-31.0 [facility] Chloride [Moles/volume] in S alayna or PlasmaOrdered By: Leigha Nelson on 08-30-2023 Chloride [Moles/Vol] 102 mmol/L 98-107 [facility] Complete Blood Count Auto Di ffon 08-30-2023 Basophils (Bld) [#/Vol] 0.0 10*3/uL Normal 0.0-0.2 [facility] Comment on above: Result Comment: PERF ORMED BY: [place] [address] PATHOLOGIST KNITTER MACHINE TRU UMANZOR M.D. Performed By: #### C MP, FE and TIBC, TONY, CBC, CEA #### [facility] [address] [place] [address] Basophils/100 WBC (Bld) 0.5 % Normal . [facility] Comment on above: Performed By: #### C MP, FE and TIBC, TONY, CBC, CEA #### [address] Eosinophils (Bld) [#/Vol] 0.3 10*3/uL Normal 0.0-0.45 [facility] Comment on above: Performed By: #### C MP, FE and TIBC, TONY, CBC, CEA #### [address] Eosinophils/100 WBC (Bld) 3.8 % Normal . [facility] Comment on above: Performed By: #### C MP, FE and TIBC, TONY, CBC, CEA #### [address] Erythrocyte distribution width (RBC) [Ratio] 14.8 % Normal 12.0-14.8 [facility] Comment on above: Performed By: #### C MP, FE and TIBC, TONY, CBC, CEA #### [address] Hematocrit (Bld) [Volume fraction] 36.8 % Low 38.8-50.0 [facility] Comment on above: Performed By: #### C MP, FE and TIBC, TONY, CBC, CEA #### [address] Hemoglobin (Bld) [Mass/Vol] 12.3 g/dL Low 13.0-17.0 [facility] Comment on above: Performed By: #### C MP, FE and TIBC, TONY, CBC, CEA #### [address] Lymphocytes (Bld) [#/Vol] 1.5 10*3/uL Normal 1.00-4.8 [facility] Comment on above: Performed By: #### C MP, FE and TIBC, TONY, CBC, CEA #### [address] Lymphocytes/100 WBC (Bld) 21.9 % Normal . [facility] Comment on above: Performed By: #### C MP, FE and TIBC, TONY, CBC, CEA #### [address] MCH (RBC) [Entitic mass] 30.9 pg Normal 27.5-35.2 [facility] Comment on above: Performed By: #### C MP, FE and TIBC, TONY, CBC, CEA #### [address] MCV (RBC) [Entitic vol] 92.8 fL Normal 83.5-101 [facility] Comment on above: Performed By: #### C MP, FE and TIBC, TONY, CBC, CEA #### [address] Mean Corpuscular HGB Conc 33.3 g/dL Normal 32.5-35.6 [facility] Comment on above: Performed By: #### C MP, FE and TIBC, TONY, CBC, CEA #### [address] Monocytes (Bld) [#/Vol] 0.5 10*3/uL Normal 0.0-0.8 [facility] Comment on above: Performed By: #### C MP, FE and TIBC, TONY, CBC, CEA #### [address] Monocytes/100 WBC (Bld) 7.9 % Normal . [facility] Comment on above: Performed By: #### C MP, FE and TIBC, TONY, CBC, CEA #### [address] Neutrophils (Bld) [#/Vol] 4.6 10*3/uL Normal 1.8-7.7 [facility] Comment on above: Performed By: #### C MP, FE and TIBC, TONY, CBC, CEA #### [address] Neutrophils/100 WBC (Bld) 65.9 % Normal . [facility] Comment on above: Performed By: #### C MP, FE and TIBC, TONY, CBC, CEA #### [address] NRBC% 0.1 /100{WBC} Normal 0-0.5 [facility] Comment on above: Performed By: #### C MP, FE and TIBC, TONY, CBC, CEA #### [address] Platelet mean volume (Bld) [Entitic vol] 7.6 fL Normal 6.6-10.1 [facility] Comment on above: Performed By: #### C MP, FE and TIBC, TONY, CBC, CEA #### [address] Platelets (Bld) [#/Vol] 206 10*3/uL Normal 150-450 [facility] Comment on above: Performed By: #### C MP, FE and TIBC, TONY, CBC, CEA #### [address] RBC (Bld) [#/Vol] 3.96 10*6/uL Normal 3.90-5.60 [facility] Comment on above: Performed By: #### C MP, FE and TIBC, TONY, CBC, CEA #### [address] WBC (Bld) [#/Vol] 7.0 10*3/uL Normal 4.1-10.5 [facility] Comment on above: Performed By: #### C MP, FE and TIBC, TONY, CBC, CEA #### [address] Comprehensive Metabolic Pane arelis 08-30-2023 Albumin [Mass/Vol] 4.4 g/dL Normal 3.5-5.7 [facility] Comment on above: Performed By: #### C MP, FE and TIBC, TONY, CBC, CEA #### [address] Albumin/Globulin [Mass ratio] 1.8 {ratio} Normal [facility] Comment on above: Performed By: #### C MP, FE and TIBC, TONY, CBC, CEA #### [address] ALP [Catalytic activity/Vol] 114 U/L High 34-104 [facility] Comment on above: Performed By: #### C MP, FE and TIBC, TONY, CBC, CEA #### [place] [address] [place] ALT [Catalytic activity/Vol] 20 U/L Normal 7-52 [facility] Comment on above: Performed By: #### C MP, FE and TIBC, TONY, CBC, CEA #### [facility] [address] Anion gap [Moles/Vol] 10.0 mmol/L Normal 6.0-15.0 [facility] Comment on above: Performed By: #### C MP, FE and TIBC, TONY, CBC, CEA #### [address] AST [Catalytic activity/Vol] 23 U/L Normal 13-39 [facility] Comment on above: Performed By: #### C MP, FE and TIBC, TONY, CBC, CEA #### [address] Bilirubin [Mass/Vol] 0.8 mg/dL Normal 0.3-1.0 [facility] Comment on above: Performed By: #### C MP, FE and TIBC, TONY, CBC, CEA #### [address] Calcium [Mass/Vol] 9.7 mg/dL Normal 8.6-10.3 [facility] Comment on above: Performed By: #### C MP, FE and TIBC, TONY, CBC, CEA #### [address] Chloride [Moles/Vol] 102 mmol/L Normal 98-107 [facility] Comment on above: Performed By: #### C MP, FE and TIBC, TONY, CBC, CEA #### [address] CO2 [Moles/Vol] 35.5 mmol/L High 21.0-31.0 [facility] Comment on above: Performed By: #### C MP, FE and TIBC, TONY, CBC, CEA #### [address] Creatinine [Mass/Vol] 2.29 mg/dL High 0.70-1.30 [facility] Comment on above: Performed By: #### C MP, FE and TIBC, TONY, CBC, CEA #### [facility] [address] Creatinine Clr Calc Pharmacy 30.81 [facility] Comment on above: Performed By: #### C MP, FE and TIBC, TONY, CBC, CEA #### [facility] [address] [place] [address] [place] GFR/1.73 sq M.predicted MDRD (S/P/Bld) [Vol rate/Area] 27.976 mL/min/{1.73_m2} [facility] Comment on above: Performed By: #### C MP, FE and TIBC, TONY, CBC, CEA #### [facility] [address] Globulin (S) [Mass/Vol] 2.5 g/dL Normal [facility] Comment on above: Performed By: #### C MP, FE and TIBC, TONY, CBC, CEA #### [facility] [address] Glucose [Mass/Vol] 111 mg/dL High 70-100 [facility] Comment on above: Result Comment: Roy Glucose Reference Range is dependent on time and content of last meal. Glucose of more than 200 mg/dL in a nonstressed, ambulatory subject supports the diagnosis of Diabetes Mellitus. ADA recommended reference range Performed By: #### C MP, FE and TIBC, TONY, CBC, CEA #### [facility] [address] Potassium [Moles/Vol] 4.5 mmol/L Normal 3.5-5.1 [facility] Comment on above: Performed By: #### C MP, FE and TIBC, TONY, CBC, CEA #### [facility] [address] Protein [Mass/Vol] 6.9 g/dL Normal 6.4-8.9 [facility] Comment on above: Performed By: #### C MP, FE and TIBC, TONY, CBC, CEA #### [facility] [address] [place] [address] [place] Sodium [Moles/Vol] 143 mmol/L Normal 136-145 [facility] Comment on above: Performed By: #### C MP, FE and TIBC, TONY, CBC, CEA #### [facility] [address] [place] [address] [place] Urea nitrogen [Mass/Vol] 51 mg/dL High 7-25 [facility] Comment on above: Performed By: #### C MP, FE and TIBC, TONY, CBC, CEA #### [facility] [address] [place] [address] [place] Creatinine [Mass/volume] in Serum or PlasmaOrdered By: Leigha Nelson on 08-30-2023 Creatinine [Mass/Vol] 2.29 mg/dL 0.70-1.30 [facility] Eosinophils Auto (Bld) [#/Vo l]Ordered By: Leigha Nelson on 08-30-2023 Eosinophils (Bld) [#/Vol] 0.3 10*3/uL 0.0-0.45 [facility] Eosinophils/100 WBC Auto (Bl d)Ordered By: Leigha Nelson on 08-30-2023 Eosinophils/100 WBC (Bld) 3.8 % . [facility] Erythrocyte distribution wid th Auto (RBC) [Ratio]Ordered By: Leigha Nelson on 08-30-2023 Erythrocyte distribution width (RBC) [Ratio] 14.8 % 12.0-14.8 [facility] Ferritinon 08-30-2023 Ferritin [Mass/Vol] 239.3 ng/mL Normal 23.9-336.2 [facility] Comment on above: Result Comment: PERF ORMED BY: [facility] [address] [place] [address] PATHOLOGIST KNITTER MACHINE TRU UMANZOR M.D. Performed By: #### C MP, FE and TIBC, TONY, CBC, CEA #### [facility] [address] [place] [address] [place] Ferritin [Mass/volume] in Se rum or PlasmaOrdered By: Leigha Nelson on 08-30-2023 Ferritin [Mass/Vol] 239.3 ng/mL 23.9-336.2 [facility] Globulin Calc (S) [Mass/Vol] Ordered By: Leigha Omar on 08-30-2023 Globulin (S) [Mass/Vol] 2.5 g/dL [facility] Glucose [Mass/volume] in Ser um or PlasmaOrdered By: Leigha Omar on 08-30-2023 Glucose [Mass/Vol] 111 mg/dL 70-100 [facility] Comment on above: ADA recommended refe rence rangeRandom Glucose Reference Range is dependent on time and content of last meal. Glucose of more than 200 mg/dL in a nonstressed, ambulatory subject supports the diagnosis of Diabetes Mellitus. Hematocrit Auto (Bld) [Volum e fraction]Ordered By: Leigha Omar on 08-30-2023 Hematocrit (Bld) [Volume fraction] 36.8 % 38.8-50.0 [facility] Hemoglobin [Mass/volume] in BloodOrdered By: Leigha Nelson on 08-30-2023 Hemoglobin (Bld) [Mass/Vol] 12.3 g/dL 13.0-17.0 [facility] Iron [Mass/volume] in Serum or PlasmaOrdered By: Leigha Nelson on 08-30-2023 Iron [Mass/Vol] 84 ug/dL 50-212 [facility] Iron and TIBC Profileon 08-16 % Iron Saturation 29.0 % Normal 20-50 [facility] Comment on above: Performed By: #### C MP, FE and TIBC, TONY, CBC, CEA #### [facility] [address] [place] [id number] [place] Iron [Mass/Vol] 84 ug/dL Normal 50-212 [facility] Comment on above: Performed By: #### C MP, FE and TIBC, TONY, CBC, CEA #### [facility] [address] [place] [id number] [facility] Total Iron Binding Capacity 290 ug/dL Normal 255-450 [facility] Comment on above: Performed By: #### C MP, FE and TIBC, TONY, CBC, CEA #### [facility] [address] [place] [address] [place] Transferrin [Mass/Vol] 207 mg/dL Normal 203-362 [facility] Comment on above: Performed By: #### C MP, FE and TIBC, TONY, CBC, CEA #### [facility] [address] Iron binding capacity [Mass/ volume] in Serum or PlasmaOrdered By: Leigha Nelson on 08-30-2023 Iron binding capacity [Mass/Vol] 290 ug/dL 255-450 [facility] Iron saturation [Mass Fracti on] in Serum or PlasmaOrdered By: Leigha Nelson on 08-30-2023 Iron saturation [Mass fraction] 29.0 % 20-50 [facility] Leukocytes [#/volume] correc bonnie for nucleated erythrocytes in Blood by Automated counOrdered By: Leigha Nelson on 08-30-2023 WBC corrected for nucl RBC Auto (Bld) [#/Vol] 7.0 10*3/uL 4.1-10.5 [facility] Lymphocytes Auto (Bld) [#/Vo l]Ordered By: Leigha Nelson on 08-30-2023 Lymphocytes (Bld) [#/Vol] 1.5 10*3/uL 1.00-4.8 [facility] Lymphocytes/100 WBC Auto (Bl d)Ordered By: Leigha Nelson on 08-30-2023 Lymphocytes/100 WBC (Bld) 21.9 % . [facility] MCH Auto (RBC) [Entitic mass ]Ordered By: Leigha Nelson on 08-30-2023 MCH (RBC) [Entitic mass] 30.9 pg 27.5-35.2 [facility] MCHC Auto (RBC) [Mass/Vol]Or dered By: Leigha Nelson on 08-30-2023 MCHC (RBC) [Mass/Vol] 33.3 g/dL 32.5-35.6 [facility] MCV Auto (RBC) [Entitic vol] Ordered By: Leigha Nelson on 08-30-2023 MCV (RBC) [Entitic vol] 92.8 fL 83.5-101 [facility] Monocytes Auto (Bld) [#/Vol] Ordered By: Leigha Nelson on 08-30-2023 Monocytes (Bld) [#/Vol] 0.5 10*3/uL 0.0-0.8 [facility] Monocytes/100 WBC Auto (Bld) Ordered By: Leigha Nelson on 08-30-2023 Monocytes/100 WBC (Bld) 7.9 % . [facility] Neutrophils Auto (Bld) [#/Vo l]Ordered By: Leigha Nelson on 08-30-2023 Neutrophils (Bld) [#/Vol] 4.6 10*3/uL 1.8-7.7 [facility] Neutrophils/100 WBC Auto (Bl d)Ordered By: Leigha Nelson on 08-30-2023 Neutrophils/100 WBC (Bld) 65.9 % . [facility] No Panel InformationOrdered By: Leigha Nelson on 08-30-2023 Estimated GFR (CKD-EPI) 27.976 mL/Min [facility] Creatinine Clearance (Chem 30.81 [facility] Nucleated erythrocytes [Pres ence] in Blood by Automated countOrdered By: Leigha Nelson on 08-30-2023 Nucleated RBC Auto Ql (Bld) 0.1 /100{WBC} 0-0.5 [facility] Platelet mean volume Auto (B ld) [Entitic vol]Ordered By: Leigha Nelson on 08-30-2023 Platelet mean volume (Bld) [Entitic vol] 7.6 fL 6.6-10.1 [facility] Platelets Auto (Bld) [#/Vol] Ordered By: Leigha Nelson on 08-30-2023 Platelets (Bld) [#/Vol] 206 10*3/uL 150-450 [facility] Potassium [Moles/volume] in Serum or PlasmaOrdered By: Leigha Nelson on 08-30-2023 Potassium [Moles/Vol] 4.5 mmol/L 3.5-5.1 [facility] Protein [Mass/volume] in Ser um or PlasmaOrdered By: Leigha Nelson on 08-30-2023 Protein [Mass/Vol] 6.9 g/dL 6.4-8.9 [facility] RBC Auto (Bld) [#/Vol]Ordere d By: Eligha Omar on 08-30-2023 RBC (Bld) [#/Vol] 3.96 10*6/uL 3.90-5.60 [facility] Serum or plasma albumin/glob ulin mass ratioOrdered By: Leigha Nelson on 08-30-2023 Albumin/Globulin [Mass ratio] 1.8 {ratio} [facility] Serum or plasma anion gap de terminationOrdered By: Leigha Nelson on 08-30-2023 Anion gap [Moles/Vol] 10.0 mmol/L 6.0-15.0 [facility] Serum or plasma carcinoembry onic antigen measurement (mass/volume)Ordered By: Leigha Nelson on 08-30-2023 Carcinoembryonic Ag [Mass/Vol] 2.1 ng/mL 0.0-3.0 [facility] Sodium [Moles/volume] in Ser um or PlasmaOrdered By: Leigha Nelson on 08-30-2023 Sodium [Moles/Vol] 143 mmol/L 136-145 [facility] Transferrin [Mass/volume] in Serum or PlasmaOrdered By: Leigha Nelson on 08-30-2023 Transferrin [Mass/Vol] 207 mg/dL 203-362 [facility] Urea nitrogen [Mass/volume] in Serum or PlasmaOrdered By: Leigha Nelson on 08-30-2023 Urea nitrogen [Mass/Vol] 51 mg/dL 7-25 [facility] WBC Auto (Bld) [#/Vol]Ordere d By: Leigha Nelson on 08-30-2023 WBC (Bld) [#/Vol] 7.0 10*3/uL 4.1-10.5 [facility] Follow-Upon 06-30-2023 Follow-Up [id number] Shanti Ren 1940 M Date Provider Department Center 06/30/2023 [id number] Family History Problem Relation Age of Onset Diabetes Mother Heart disease Father Glaucoma Brother Diabetes Maternal Grandmother Clotting disorder Other Family Status - Relation Status Age at Mother Father Brother Maternal Grandmother Other Level of Service:18722 ME OFFICE/OUTPATIENT ESTABLISHED MOD MDM 30-39 MIN Normal [facility] Office Visiton 06-23-2023 Follow-up visit [id number] Shanti Ren 1940 M Date Provider Department Center 06/23/2023 [id number]-MALI [facility] Family History Problem Relation Age of Onset Diabetes Mother Heart disease Father Glaucoma Brother Diabetes Maternal Grandmother Clotting disorder Other Family Status - Relation Status Age at Mother Father Brother Maternal Grandmother Other Level of Service:43870 ME OFFICE/OUTPATIENT ESTABLISHED LOW MDM 20-29 MIN Normal [facility] Documentationon 06-14-2023 Documentation [id number] Shanti Ren 1940 M Date Provider Department Center 06/14/2023 ROXANNE CANCHOLA [facility] Family History Problem Relation Age of Onset Diabetes Mother Heart disease Father Glaucoma Brother Diabetes Maternal Grandmother Clotting disorder Other Family Status - Relation Status Age at Mother Father Brother Maternal Grandmother Other Normal [facility] BASIC METABOLIC PANELon 05-17 Anion gap [Moles/Vol] 14 mmol/L Normal 7-20 [facility] Comment on above: Performed By: #### L AB15 ####[facility] ([facility]AKER)[address] [place] [address] Calcium [Mass/Vol] 9.3 mg/dL Normal 8.6-10.3 [facility] Comment on above: Performed By: #### L AB15 ####[facility] ([facility]ER)[address] [place] [address] Chloride [Moles/Vol] 103 mmol/L Normal 98-107 [facility] Comment on above: Performed By: #### L AB15 ####[facility] ([facility]AKER)[address] [place] [address] CO2 [Moles/Vol] 29 mmol/L Normal 21-31 [facility] Comment on above: Performed By: #### L AB15 ####[facility] ([facility])[address] [place] [address] Creatinine [Mass/Vol] 2.51 mg/dL High 0.70-1.30 [facility] Comment on above: Performed By: #### L AB15 ####[facility] ([facility])[address] [place] [address] GLOMERULAR FILTRATION RATE ML/MIN/1.73 SQ M.PREDICTED 25.1 mL/min/1.73m*2 Low >60.0 [facility] Comment on above: Result Comment: The [facility]???s estimated glomerular filtration rate (eGFR) will no [...] of individuals. Performed By: #### L AB15 ####[facility] ([facility])[address] [place] [address] Glucose [Mass/Vol] 135 mg/dL High 70-100 [facility] Comment on above: Performed By: #### L AB15 ####[facility] ([facility])[address] [place] [address] Potassium [Moles/Vol] 4.0 mmol/L Normal 3.5-5.1 [facility] Comment on above: Performed By: #### L AB15 ####[facility] ([facility])[address] [place] [address] Sodium [Moles/Vol] 142 mmol/L Normal 136-145 [facility] Comment on above: Performed By: #### L AB15 ####[facility] ([facility])[address] [place] [address] Urea nitrogen [Mass/Vol] 55 mg/dL High 7-25 [facility] Comment on above: Performed By: #### L AB15 ####[facility] ([facility]AKER)[address] [place] [address] UREA NITROGEN/CREATININE (MASS RATIO) IN SER/PLAS 21.9 Normal [facility] Comment on above: Performed By: #### L AB15 ####[facility] ([facility])[address] [place] [address] HPon 06-12-2023 [facility] Electrophysiology Consult Note Reason for visit: Afib [...] infrahisian disease. He was brought back to Test And Turn Up Technician on 02/12/2020 due to what was discussed [...] INSERT / REPLACE (more content not included)... [facility] NURSNOTEon 06-12-2023 NURSNOTE RN educated pt on d/ c instructions. RN encouraged pt to voice any questions or concerns. Pt verbalizes no questions or concerns at this time. [facility] NURSNOTE Iodine nasal swabs and CHG wipes done per device prep protocol. [facility] Telemedicineon 04-25-2023 Telemedicine [id number] Shanti Ren 1940 M [facility] Provider Department Center 04/25/2023 [id number] [facility] CARD [facility] Family History Problem Relation Age of Onset Diabetes Mother Heart disease Father Glaucoma Brother Diabetes Maternal Grandmother Clotting disorder Other Family Status - Relation Status Age at Mother Father Brother Maternal Grandmother Other Level of Service:33213 ME PHYS/QHP TELEPHONE EVALUATION 21-30 MIN Reason for Visit and Comments: Telehealth Phone Visit [872] [facility] 2904-14-2023 29 Addended by: COMPA ARIAS on: 04/14/2023 09:56 AM Modules accepted: Orders [facility] 36on 04-14-2023 36 Per Venessa Sanchez, patient will increase Bumex to bid x 3 days. He will have BMP today and then repeat BMP next Monday. He will have telemed apt with Madhuri Isabel CNP at [facility] on 04/25/2023. Patient's made aware. She has also been in contact with his tissue specialist. [facility] Orders Onlyon 04-14-2023 Orders Only [id number] Shanti Ren 1940 M [facility] Provider Department Center 04/14/2023 ROXANNE CANCHOLA DARWIN Veronica [facility] Family History Problem Relation Age of Onset Diabetes Mother Heart disease Father Glaucoma Brother Diabetes Maternal Grandmother Clotting disorder Other Family Status - Relation Status Age at Mother Father Brother Maternal Grandmother Other [facility] 36on 04-10-2023 36 Patient's stack d stating he's c/o LE edema. She said no weight gain but does seem a little more SOB. He did not have these symptoms when he saw Dr. Degroot on 04/04 she said. He takes 1mg of bumex daily. Last kidney function was in December 2022, and he sees nephrology again in May. Any suggestions? Thanks! [facility] Telephoneon 04-10-2023 Telephone [id number] Shanti Ren thomas 1940 M Date Provider Department Center 04/10/2023 [id number]-SJHZTAOKBMADDI SONG DARWIN [facility] Family History Problem Relation Age of Onset Diabetes Mother Heart disease Father Glaucoma Brother Diabetes Maternal Grandmother Clotting disorder Other Family Status - Relation Status Age at Mother Father Brother Maternal Grandmother Other [facility] Office Visiton 04-04-2023 Follow-up visit [id number] Armando Renmary guzman 1940 M Date Provider Department Center 04/04/2023 MARIUSZ LOPEZ DARWIN Shaikh Family History Problem Relation Age of Onset Diabetes Mother Heart disease Father Glaucoma Brother Diabetes Maternal Grandmother Clotting disorder Other Family Status - Relation Status Age at Mother Father Brother Maternal Grandmother Other Level of Service:47955 ME OFFICE/OUTPATIENT ESTABLISHED HIGH [facility] 40-54 MIN Reason for Visit and Comments: Follow-up [202278] [facility] 36on 03-06-2023 36 done [facility] 36on 02-28-2023 36 Ask him to stop Aspirin. They can discuss further during upcoming appointment with Dr. Degroot. Thanks. [facility] CT abdomen pelvis wo conon 0 02-28-2023 CT abdomen pelvis wo [facility] Main [address] [address] [address] Scan Report Signed Patient: Nas Ren MR#: [id number] 24 : 1940 Acct:[id number] Age/Sex: 82 / M ADM Date: 02/28/23 Loc: XT Room: Type: [facility] RCR Attending Dr: Chivo Keller II DO Copies to: Chivo Keller II, DO Ordering Provider: Chivo Keller II, DO Date of Service: 02/28/23 CT/CT abdomen pelvis wo con: surveilance ([id number]) CT/CT chest wo con: surveilance CT CHEST, [...] Scott Jr., D.O.02/28/2023 2:57 PM Dictation Location: [place] [address] Transcribed By: [facility] 02/28/23 1457 Dictated By: Sotero Scott Jr, DO 02/28/23 1447 Signed By: 02/28/23 1457 Normal [facility] Complete Blood Count Auto Di ffon 02-28-2023 Basophils (Bld) [#/Vol] 0.1 10*3/uL Normal 0.0-0.2 [facility] Comment on above: Result Comment: PERF ORMED BY: [place] [address] PATHOLOGIST KNITTER MACHINE TRU UMANZOR M.D. Performed By: #### C BC, CMP, FE and TIBC, TONY, CEA #### [address] Basophils/100 WBC (Bld) 0.6 % Normal . [facility] Comment on above: Performed By: #### C BC, CMP, FE and TIBC, TONY, CEA #### [address] Eosinophils (Bld) [#/Vol] 0.3 10*3/uL Normal 0.0-0.45 [facility] Comment on above: Performed By: #### C BC, CMP, FE and TIBC, TONY, CEA #### [address] Eosinophils/100 WBC (Bld) 3.6 % Normal . [facility] Comment on above: Performed By: #### C BC, CMP, FE and TIBC, TONY, CEA #### [address] Erythrocyte distribution width (RBC) [Ratio] 14.7 % Normal 12.0-14.8 [facility] Comment on above: Performed By: #### C BC, CMP, FE and TIBC, TONY, CEA #### [address] Hematocrit (Bld) [Volume fraction] 38.1 % Low 38.8-50.0 [facility] Comment on above: Performed By: #### C BC, CMP, FE and TIBC, TONY, CEA #### [address] Hemoglobin (Bld) [Mass/Vol] 12.5 g/dL Low 13.0-17.0 [facility] Comment on above: Performed By: #### C BC, CMP, FE and TIBC, TONY, CEA #### [address] Lymphocytes (Bld) [#/Vol] 1.7 10*3/uL Normal 1.00-4.8 [facility] Comment on above: Performed By: #### C BC, CMP, FE and TIBC, TONY, CEA #### [address] Lymphocytes/100 WBC (Bld) 17.9 % Normal . [facility] Comment on above: Performed By: #### C BC, CMP, FE and TIBC, TONY, CEA #### [address] MCH (RBC) [Entitic mass] 30.7 pg Normal 27.5-35.2 [facility] Comment on above: Performed By: #### C BC, CMP, FE and TIBC, TONY, CEA #### [address] MCV (RBC) [Entitic vol] 93.2 fL Normal 83.5-101 F [facility] Comment on above: Performed By: #### C BC, CMP, FE and TIBC, TONY, CEA #### [address] Mean Corpuscular HGB Conc 33.0 g/dL Normal 32.5-35.6 [facility] Comment on above: Performed By: #### C BC, CMP, FE and TIBC, TONY, CEA #### [facility] [address] [place] [address] [place] Monocytes (Bld) [#/Vol] 0.9 10*3/uL High 0.0-0.8 [facility] Comment on above: Performed By: #### C BC, CMP, FE and TIBC, TONY, CEA #### [facility] [address] [place] [address] [place] Monocytes/100 WBC (Bld) 9.6 % Normal . [facility] Comment on above: Performed By: #### C BC, CMP, FE and TIBC, TONY, CEA #### [place] [address] [place] Neutrophils (Bld) [#/Vol] 6.6 10*3/uL Normal 1.8-7.7 [facility] Comment on above: Performed By: #### C BC, CMP, FE and TIBC, TONY, CEA #### [address] Neutrophils/100 WBC (Bld) 68.3 % Normal . [facility] Comment on above: Performed By: #### C BC, CMP, FE and TIBC, TONY, CEA #### [place] [address] [place] NRBC% 0.3 /100{WBC} Normal 0-0.5 [facility] Comment on above: Performed By: #### C BC, CMP, FE and TIBC, TONY, CEA #### [facility] [address] [place] [address] [place] Platelet mean volume (Bld) [Entitic vol] 7.6 fL Normal 6.6-10.1 [facility] Comment on above: Performed By: #### C BC, CMP, FE and TIBC, TONY, CEA #### [place] [address] [place] Platelets (Bld) [#/Vol] 215 10*3/uL Normal 150-450 [facility] Comment on above: Performed By: #### C BC, CMP, FE and TIBC, TONY, CEA #### [facility] [address] RBC (Bld) [#/Vol] 4.08 10*6/uL Normal 3.90-5.60 [facility] Comment on above: Performed By: #### C BC, CMP, FE and TIBC, TONY, CEA #### [facility] [address] WBC (Bld) [#/Vol] 9.6 10*3/uL Normal 4.1-10.5 [facility] Comment on above: Performed By: #### C BC, CMP, FE and TIBC, TONY, CEA #### [address] Comprehensive Metabolic Pane arelis 02-28-2023 Albumin [Mass/Vol] 4.1 g/dL Normal 3.5-5.7 [facility] Comment on above: Performed By: #### C BC, CMP, FE and TIBC, TONY, CEA #### [address] Albumin/Globulin [Mass ratio] 1.7 {ratio} Normal [facility] Comment on above: Performed By: #### C BC, CMP, FE and TIBC, TONY, CEA #### [address] ALP [Catalytic activity/Vol] 118 U/L High 34-104 [facility] Comment on above: Performed By: #### C BC, CMP, FE and TIBC, TONY, CEA #### [address] ALT [Catalytic activity/Vol] 31 U/L Normal 7-52 [facility] Comment on above: Performed By: #### C BC, CMP, FE and TIBC, TONY, CEA #### [address] Anion gap [Moles/Vol] 13.3 mmol/L Normal 6.0-15.0 [facility] Comment on above: Performed By: #### C BC, CMP, FE and TIBC, TONY, CEA #### [facility] [address] AST [Catalytic activity/Vol] 23 U/L Normal 13-39 [facility] Comment on above: Performed By: #### C BC, CMP, FE and TIBC, TONY, CEA #### [facility] [address] Bilirubin [Mass/Vol] 0.7 mg/dL Normal 0.3-1.0 [facility] Comment on above: Performed By: #### C BC, CMP, FE and TIBC, TONY, CEA #### [facility] [address] Calcium [Mass/Vol] 8.8 mg/dL Normal 8.6-10.3 [facility] Comment on above: Performed By: #### C BC, CMP, FE and TIBC, TONY, CEA #### [facility] [address] Chloride [Moles/Vol] 104 mmol/L Normal 98-107 [facility] Comment on above: Performed By: #### C BC, CMP, FE and TIBC, TONY, CEA #### [address] CO2 [Moles/Vol] 29.0 mmol/L Normal 21.0-31.0 [facility] Comment on above: Performed By: #### C BC, CMP, FE and TIBC, TONY, CEA #### [address] Creatinine [Mass/Vol] 2.25 mg/dL High 0.70-1.30 [facility] Comment on above: Performed By: #### C BC, CMP, FE and TIBC, TONY, CEA #### [address] Creatinine Clr Calc Pharmacy 31.39 Normal [facility] Comment on above: Performed By: #### C BC, CMP, FE and TIBC, TONY, CEA #### [facility] [address] [place] [address] [place] GFR/1.73 sq M.predicted MDRD (S/P/Bld) [Vol rate/Area] 28.753 mL/min/{1.73_m2} Normal [facility] Comment on above: Performed By: #### C BC, CMP, FE and TIBC, TONY, CEA #### [facility] [address] Globulin (S) [Mass/Vol] 2.4 g/dL Normal F [facility] Comment on above: Performed By: #### C BC, CMP, FE and TIBC, TONY, CEA #### [facility] [address] Glucose [Mass/Vol] 114 mg/dL High 70-100 [facility] Comment on above: Result Comment: [facility] Glucose Reference Range is dependent on time and content of last meal. Glucose of more than 200 mg/dL in a nonstressed, ambulatory subject supports the diagnosis of Diabetes Mellitus. ADA recommended reference range Performed By: #### C BC, CMP, FE and TIBC, TONY, CEA #### [facility] [address] Potassium [Moles/Vol] 4.3 mmol/L Normal 3.5-5.1 [facility] Comment on above: Performed By: #### C BC, CMP, FE and TIBC, TONY, CEA #### [facility] [address] [place] [address] [place] Protein [Mass/Vol] 6.5 g/dL Normal 6.4-8.9 [facility] Comment on above: Performed By: #### C BC, CMP, FE and TIBC, TONY, CEA #### [facility] [address] [place] [address] [place] Sodium [Moles/Vol] 142 mmol/L Normal 136-145 [facility] Comment on above: Performed By: #### C BC, CMP, FE and TIBC, TONY, CEA #### [facility] [address] [place] [address] [place] Urea nitrogen [Mass/Vol] 45 mg/dL High 7-25 [facility] Comment on above: Performed By: #### C BC, CMP, FE and TIBC, TONY, CEA #### [facility] [address] [place] [id number] [facility] ECHOCARDIO M/2D COMPLETEon 0 02-28-2023 ECHOCARDIO M/2D COMPLETE Patient: NAS REN Exam Date: 02/28/2023 : 1940 Gender:M 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 on 02/28/2023 at 20:26 Normal [place] Ferritinon 02-28-2023 Ferritin [Mass/Vol] 236.7 ng/mL Normal 23.9-336.2 [facility] Comment on above: Result Comment: PERF ORMED BY: [place] [address] PATHOLOGIST KNITTER MACHINE TRU UMANZOR M.D. Performed By: #### C MP, FE and TIBC, TONY, CBC, CEA #### [facility] [address] Iron and TIBC Profileon 02-13 % Iron Saturation 19.9 % Low 20-50 [facility] Comment on above: Performed By: #### C BC, CMP, FE and TIBC, TONY, CEA #### [facility] [address] Iron [Mass/Vol] 56 ug/dL Normal 50-212 [facility] Comment on above: Performed By: #### C BC, CMP, FE and TIBC, TONY, CEA #### [facility] [address] Total Iron Binding Capacity 281 ug/dL Normal 255-450 [facility] Comment on above: Performed By: #### C BC, CMP, FE and TIBC, TONY, CEA #### [facility] [address] Transferrin [Mass/Vol] 201 mg/dL Low 203-362 [facility] Comment on above: Performed By: #### C BC, CMP, FE and TIBC, TONY, CEA #### [facility] [address] Refillon 02-22-2023 Refill [id number] Shanti Ren 1940 M Date Provider Department Center 02/22/2023 [facility] Comprehensiv Family History Problem Relation Age of Onset Diabetes Mother Heart disease Father Glaucoma Brother Diabetes Maternal Grandmother Clotting disorder Other Family Status - Relation Status Age at Mother Father Brother Maternal Grandmother Other Reason for Visit and Comments: Med Refill [[id number]] Normal [facility] T3, TOTAL (TRIIODOTHYRONINE) on 02-16-2023 T3, TOTAL 83 ng/dL Normal 71-180 [place] Comment on above: Performed By: #### F T4, PSASC #### [facility] [address] [place] [address] [address] Benito Schwartz FREE T4on 02-15-2023 Free T4 [Mass/Vol] 1.03 ng/dL Normal 0.76-1.46 [facility] Comment on above: Performed By: #### F T4 #### [facility] [address] [place] [address] [address] Benito Schwartz LIPID PROFILEon 02-15-2023 CHOL-HDL RATIO NORM SEE BELOW Normal [facility] Comment on above: Result Comment: 3.3 - 4.4 LOW RISK 4.4 - 7.1 AVERAGE RISK 7.1 - 11.0 MODERATE RISK >11.0 HIGH RISK Performed By: #### T SH, FT3, BMP #### [facility] [address] [place] [address] [address] Benito Schwartz Cholesterol [Mass/Vol] 164 mg/dL Normal <=200 [facility] Comment on above: Performed By: #### T SH, FT3, BMP #### [facility] [address] [place] [address] [address] Benito Schwartz Cholesterol in HDL [Mass/Vol] 41 mg/dL Normal 40-60 [place] Comment on above: Performed By: #### T SH, FT3, BMP #### [facility] [address] [place] [address] Dr. Benito Schwartz Cholesterol in LDL [Mass/Vol] 104.2 mg/dL Normal [place] Comment on above: Performed By: #### T SH, FT3, BMP #### [facility] [address] [place] [address] [address] Benito Schwartz Cholesterol.total/Lissette sterol in HDL [Mass ratio] 4.0 {ratio} Normal [place] Comment on above: Performed By: #### T SH, FT3, BMP #### [facility] [address] [place] [address] [address] Benito Schwartz HDL NORMAL > or = 60 mg/dl - LO W CARDIOVASCULAR RISK <40 mg/dl - HIGH CARDIOVASCULAR RISK Normal [place] Comment on above: Performed By: #### T SH, FT3, BMP #### [facility] [address] [place] [address] [address] Benito Schwartz LDL CALC NORMAL SEE BELOW Normal [facility] Comment on above: Result Comment: <100 mg/dl OPTIMAL 100 - 129 mg/dl NEAR OR ABOVE OPTIMAL 130 - 159 mg/dl BORDERLINE HIGH 160 - 189 mg/dl HIGH >190 mg/dl VERY HIGH Performed By: #### T SH, FT3, BMP #### [facility] [address] [place] [address] [address] Benito Schwartz Triglyceride [Mass/Vol] 94 mg/dL Normal <=150 [facility] Comment on above: Performed By: #### T SH, FT3, BMP #### [facility] [address] [place] [address] [address] Benito Schwartz VLDL CALC 18.8 mg/dL Normal [place] Comment on above: Performed By: #### T SH, FT3, BMP #### [facility] [address] [place] [address] [address] Benito Schwartz TSHon 02-15-2023 TSH 22.732 uIU/mL Critically high 0.358-3.740 [facility] Comment on above: Performed By: #### F T4, PSASC #### [facility] [address] [place] [address] [address] Benito Schwartz Office Visiton 02-13-2023 Follow-up visit [id number] Shanti Ren 1940 M Date Provider Department Center 02/13/2023 [id number]-GEHKAKQALMADDI SONG [facility] Family History Problem Relation Age of Onset Diabetes Mother Heart disease Father Glaucoma Brother Diabetes Maternal Grandmother Clotting disorder Other Family Status - Relation Status Age at Mother Father Brother Maternal Grandmother Other Level of Service:22196 ME OFFICE/OUTPATIENT ESTABLISHED MOD MDM 30-39 MIN Reason for Visit and Comments: Follow-up [801371] - 3 month follow up Normal [facility] PTH INTACTon 01-03-2023 PTH, Intact 46 pg/mL Normal 15-65 [place] Comment on above: Performed By: #### U RTPCR #### [facility] [address] [place] [address] Dr. Benito Schwartz T3, TOTAL (TRIIODOTHYRONINE) on 01-03-2023 T3, TOTAL 77 ng/dL Normal 71-180 [place] Comment on above: Performed By: #### T SH, FT3, BMP #### [facility] [address] [place] [address] Dr. Benito Schwartz CBC AUTO DIFFon 01-02-2023 BASO # 0.0 103/ul Normal 0.0-0.1 [place] Comment on above: Performed By: #### C BC #### [facility] [address] [place] [address] Dr. Benito Schwartz Basophils/100 WBC (Bld) 0.4 % Normal 0.2-2.0 [facility] Comment on above: Performed By: #### C BC #### [facility] [address] [place] [address] Dr. Benito Schwartz EO # 0.4 103/ul Normal 0.0-0.7 [place] Comment on above: Performed By: #### C BC #### [facility] [address] [place] [address] Dr. Benito Schwartz Eosinophils/100 WBC (Bld) 5.1 % Normal 0.9-7.0 [place] Comment on above: Performed By: #### C BC #### [facility] [address] [place] [address] Dr. Benito Schwartz Erythrocyte distribution width (RBC) [Ratio] 13.2 % Normal 11.0-15.0 [place] Comment on above: Performed By: #### C BC #### [facility] [address] [place] [address] Dr. Benito Schwartz Hematocrit (Bld) [Volume fraction] 37.4 % Critically low 42.0-54.0 [place] Comment on above: Performed By: #### C BC #### [facility] [address] [place] [address] Dr. Benito Schwartz Hemoglobin (Bld) [Mass/Vol] 12.4 g/dL Critically low 14.0-18.0 [place] Comment on above: Performed By: #### C BC #### [facility] [address] [place] [address] Dr. Benito Schwartz IG # 0.03 10e3/ul Normal 0.00-0.03 [place] Comment on above: Performed By: #### C BC #### [facility] [address] [place] [address] Dr. Benito Schwartz IG % 0.4 % Normal 0.0-0.5 [place] Comment on above: Performed By: #### C BC #### [facility] [address] [place] [address] Dr. Benito Schwartz LYMPH # 1.6 103/ul Normal 1.2-3.8 [place] Comment on above: Performed By: #### C BC #### [facility] [address] [place] [address] Dr. Benito Schwartz Lymphocytes/100 WBC (Bld) 20.3 % Critically low 20.5-60.0 [place] Comment on above: Performed By: #### C BC #### [facility] [address] [place] [address] Dr. Benito Schwartz MANUAL DIFF REQ NO Normal [facility] Comment on above: Performed By: #### C BC #### [facility] [address] [place] [address] Dr. Benito Schwartz MCH (RBC) [Entitic mass] 31.7 pg Normal 25.9-34.0 [place] Comment on above: Performed By: #### C BC #### [facility] [address] [place] [address] Dr. Benito Schwartz MCHC (RBC) [Mass/Vol] 33.2 g/dL Normal 29.9-35.2 [place] Comment on above: Performed By: #### C BC #### [facility] [address] [place] [address] Dr. Benito Schwartz MCV (RBC) [Entitic vol] 95.7 fL Critically high 80.0-94 .0 [place] Comment on above: Performed By: #### C BC #### [facility] [address] [place] [address] Dr. Benito Scwhartz MONO # 0.7 103/ul Normal 0.3-0.8 [place] Comment on above: Performed By: #### C BC #### [facility] [address] [place] [address] Dr. Benito Schwartz Monocytes/100 WBC (Bld) 8.6 % Normal 1.7-12.0 [facility] Comment on above: Performed By: #### C BC #### [facility] [address] [place] [address] Dr. Benito Schwartz NEUT # 5.3 103/ul Normal 1.4-6.5 [place] Comment on above: Performed By: #### C BC #### [facility] [address] [place] [address] Dr. Benito Schwartz Neutrophils/100 WBC (Bld) 65.2 % Normal 43.0-75.0 [place] Comment on above: Performed By: #### C BC #### [facility] [address] [place] [address] Dr. Benito Schwartz Platelet mean volume (Bld) [Entitic vol] 9.0 fL Critically low 9.5-13.5 [place] Comment on above: Performed By: #### C BC #### [facility] [address] [place] [address] Dr. Benito Schwartz PLT 209 103/ul Normal 150-450 [facility] Comment on above: Performed By: #### C BC #### [facility] [address] [place], [place] [id number] Dr. Benito Schwartz RBC 3.91 106/ul Critically low 4.70-6.10 [facility] Comment on above: Performed By: #### C BC #### [facility] [address] [place] [address] Dr. Benito Schwartz WBC 8.1 103/ul Normal 4.0-11.0 [place] Comment on above: Performed By: #### C BC #### [facility] [address] [place] [address] Dr. Benito Schwartz FREE T4on 01-02-2023 Free T4 [Mass/Vol] 0.87 ng/dL Normal 0.76-1.46 [facility] Comment on above: Performed By: #### F T4, PSASC #### [facility] [address] [place] [address] Dr. Benito Schwartz GLYCOHEMOGLOBIN A1Con 2022 ADA RECOMMENDATION SEE BELOW Normal [facility] Comment on above: Result Comment: ADA RECOMMENDED LIMIT 4.0 - 6.0 ADA THERAPEUTIC TARGET < 7.0 ACTION SUGGESTED > 7.0 Performed By: #### C BC #### [facility] [address] [place] [address] Dr. Benito Schwartz Glucose [Mass/Vol] 126 mg/dL Normal [facility] Comment on above: Performed By: #### C BC #### [facility] [address] [place] [address] Dr. Benito Schwartz HbA1c (Bld) [Mass fraction] 6.0 % Normal 4.5-6.2 [place] Comment on above: Performed By: #### C BC #### [facility] [address] [place] [address] Dr. Benito Schwartz MAGNESIUMon 01-02-2023 Magnesium [Mass/Vol] 2.3 mg/dL Normal 1.8-2.4 [facility] Comment on above: Performed By: #### U RTPCR #### [facility] [address] [place] [address] Dr. Benito Schwartz PHOSPHORUSon 01-02-2023 Phosphate [Mass/Vol] 4.1 mg/dL Normal 2.6-4.7 [facility] Comment on above: Performed By: #### U RTPCR #### [facility] [address] [place] [address] Dr. Benito Schwartz PROF CHEM 8 (BAS METB)on Anion gap [Moles/Vol] 11.1 mmol/L Normal [facility] Comment on above: Performed By: #### U RTPCR #### [facility] [address] [address] [address] Benito Schwartz Calcium [Mass/Vol] 8.9 mg/dL Normal 8.5-10.1 [facility] Comment on above: Performed By: #### U RTPCR #### [facility] [address] [address] [address] Benito Schwartz Chloride [Moles/Vol] 100 mmol/L Normal 98-107 [place] Comment on above: Performed By: #### U RTPCR #### [facility] [address] [address] [address] Benito Schwartz CO2 [Moles/Vol] 33.2 mmol/L Critically high 21.0-32.0 [place] Comment on above: Performed By: #### U RTPCR #### [facility] [address] [address] [address] Benito Schwartz Creatinine [Mass/Vol] 2.31 mg/dL Critically high 0.70-1.30 [place] Comment on above: Performed By: #### U RTPCR #### [facility] [address] [address] [address] Benito Schwartz EGFR-AF CYMRO 33 mL/min/1.73m2 Critically low >=60 [place] Comment on above: Performed By: #### U RTPCR #### [facility] [address] [address] [address] Benito Schwartz EGFR-NON AF CYMRO 27 mL/min/1.73m2 Critically low >=60 [place] Comment on above: Performed By: #### U RTPCR #### [facility] [address] [address] [address] Benito Schwartz Glucose [Mass/Vol] 112 mg/dL Critically high 74-106 [facility] Comment on above: Performed By: #### U RTPCR #### [facility] [address] [address] [address] Benito Schwartz Potassium [Moles/Vol] 4.3 mmol/L Normal 3.5-5.1 [place] Comment on above: Performed By: #### U RTPCR #### [facility] [address] [place] [address] Dr. Benito Schwartz Sodium [Moles/Vol] 140 mmol/L Normal 136-145 [facility] Comment on above: Performed By: #### U RTPCR #### [facility] [address] [place] [address] Dr. Benito Schwartz Urea nitrogen [Mass/Vol] 51.0 mg/dL Critically high 7.0-18.0 [place] Comment on above: Performed By: #### U RTPCR #### [facility] [address] [place] [address] Dr. Benito Schwartz Urea nitrogen/Creatinine [Mass ratio] 22.1 mg/mg Normal [place] Comment on above: Performed By: #### U RTPCR #### [facility] [address] [place] [address] Dr. Benito Schwartz TSHon 01-02-2023 TSH 27.692 uIU/mL Critically high 0.358-3.740 [facility] Comment on above: Performed By: #### C BC #### [facility] [address] [place] [address] Dr. Benito Schwartz UA RANDOMon 01-02-2023 Bilirubin Ql (U) Negative Normal NEGATIVE [facility] Comment on above: Performed By: #### U RTPCR #### [facility] [address] [place] [address] Dr. Benito Schwartz Clarity (U) CLEAR Normal CLEAR [place] Comment on above: Performed By: #### U RTPCR #### [facility] [address] [place] [address] Dr. Benito Schwartz Color (U) LT. YELLOW Normal YELLOW [place] Comment on above: Performed By: #### U RTPCR #### [facility] [address] [place] [address] Dr. Benito Schwartz Glucose Ql (U) Negative Normal NEGATIVE [facility] Comment on above: Performed By: #### U RTPCR #### [facility] [address] [address] [address] Benito Schwartz Hemoglobin Ql (U) Negative Normal NEGATIVE [facility] Comment on above: Performed By: #### U RTPCR #### [facility] [address] [address] [address] Benito Schwartz Ketones Ql (U) Negative Normal NEGATIVE [facility] Comment on above: Performed By: #### U RTPCR #### [facility] [address] [address] [address] Benito Schwartz LEUKOCYTES Negative Normal NEGATIVE [place] Comment on above: Performed By: #### U RTPCR #### [facility] [address] [place] [address] Dr. Benito Schwartz Nitrite Ql (U) Negative Normal NEGATIVE [facility] Comment on above: Performed By: #### U RTPCR #### [facility] [address] [place] [address] Dr. Benito Schwartz pH (U) 6.0 [pH] Normal 5-9 [place] Comment on above: Performed By: #### U RTPCR #### [facility] [address] [place] [address] Dr. Benito Schwartz SPEC GRAVITY <=1.005 Abnormal 1.005-<=1.02 5 [place] Comment on above: Performed By: #### U RTPCR #### [facility] [address] [place] [address] Dr. Benito Schwartz UA PROTEIN Negative Normal NEGATIVE/ TRACE [facility] Comment on above: Performed By: #### U RTPCR #### [facility] [address] [place] [address] Dr. Benito Schwartz Urobilinogen Qn (U) 0.2 {Jagruti'U}/dL Normal 0.2 - 1. 0 [place] Comment on above: Performed By: #### U RTPCR #### [facility] [address] [place] [address] Dr. Benito Schwartz URINE T PROTEIN CREAT RATIOo n 01-02-2023 Protein (U) [Mass/Vol] 19.1 mg/dL Critically high <=12.0 [place] Comment on above: Performed By: #### F T4, PSASC #### [facility] [address] [place] [address] Dr. Benito Schwartz UR PROT CREAT RAT 0.75 Normal [facility] Comment on above: Performed By: #### F T4, PSASC #### [facility] [address] [place] [address] Dr. Benito Schwartz URINE CREAT 25.63 mg/dL Normal 20.00-300.00 [facility] Comment on above: Performed By: #### F T4, PSASC #### [facility] [address] [place] [address] Dr. Benito Schwartz VITAMIN D 25 OHon 01-02-2023 VIT D 25-OH 86.8 ng/mL Normal [place] Comment on above: Performed By: #### U RTPCR #### [facility] [address] [place] [address] Dr. Benito Schwartz VIT D RANGES SEE BELOW Normal [place] Comment on above: Result Comment: <20 ng/mL Vit D deficient 20 - <30 ng/mL Vit D insufficient 30 - 100 ng/mL Vit D sufficient >100 ng/mL Potential Toxicity Performed By: #### U RTPCR #### [facility] [address] [place] [address] Dr. Benito Schwartz Follow-Upon 12-22-2022 Follow-Up [id number] Shanti Ren 1940 M Date Provider Department Center 12/22/2022 [facility] PULM Comprehensiv Family History Problem Relation Age of Onset Diabetes Mother Heart disease Father Glaucoma Brother Diabetes Maternal Grandmother Clotting disorder Other Family Status - Relation Status Age at Mother Father Brother Maternal Grandmother Other Level of Service:67053 ME OFFICE/OUTPATIENT ESTABLISHED LOW MDM 20-29 MIN (GC) Reason for Visit and Comments: pulmonary edema [Other] - 6 month follow up Normal [facility] T3, TOTAL (TRIIODOTHYRONINE) on 11-17-2022 T3, TOTAL 82 ng/dL Normal 71-180 [place] Comment on above: Performed By: #### V ITAD #### [facility] [address] [address] [address] Benito Schwartz FREE T4on 11-16-2022 Free T4 [Mass/Vol] 0.93 ng/dL Normal 0.76-1.46 [facility] Comment on above: Performed By: #### C BC #### [facility] [address] [place] [address] Dr. Benito Schwartz TSHon 11-16-2022 TSH 31.189 uIU/mL Critically high 0.358-3.740 [facility] Comment on above: Performed By: #### F T4, PSASC #### [facility] [address] [place] [address] Dr. Benito Schwartz T3, TOTAL (TRIIODOTHYRONINE) on 10-04-2022 T3, TOTAL 43 ng/dL Critically low 71-180 [facility] Comment on above: Performed By: #### F T4, PSASC #### [facility] [address] [place] [address] Dr. Benito Schwartz FREE T4on 10-03-2022 Free T4 [Mass/Vol] 0.35 ng/dL Critically low 0.76-1.46 [facility] Comment on above: Performed By: #### F T4, PSASC #### [facility] [address] [place] [address] Dr. Benito Schwartz TSHon 10-03-2022 TSH 121.174 uIU/mL Critically high 0.358-3.740 [place] Comment on above: Performed By: #### F T4, PSASC #### [facility] [address] [place] [address] Dr. Benito Schwartz MAGNESIUMon 09-22-2022 Magnesium [Mass/Vol] 2.5 mg/dL Critically high 1.8-2.4 [place] Comment on above: Performed By: #### F T4 #### [facility] [address] [place] [address] Dr. Benito Schwartz PROF CHEM 8 (BAS METB)on Anion gap [Moles/Vol] 7.3 mmol/L Normal [place] Comment on above: Performed By: #### F T4 #### [facility] [address] [place] [address] Dr. Benito Schwartz Calcium [Mass/Vol] 8.8 mg/dL Normal 8.5-10.1 [facility] Comment on above: Performed By: #### F T4 #### [facility] [address] [place] [address] Dr. Benito Schwartz Chloride [Moles/Vol] 100 mmol/L Normal 98-107 [place] Comment on above: Performed By: #### F T4 #### [facility] [address] [place] [address] Dr. Benito Schwartz CO2 [Moles/Vol] 33.7 mmol/L Critically high 21.0-32.0 [place] Comment on above: Performed By: #### F T4 #### [facility] [address] [place] [address] Dr. Benito Schwartz Creatinine [Mass/Vol] 2.43 mg/dL Critically high 0.70-1.30 [place] Comment on above: Performed By: #### F T4 #### [facility] [address] [place] [address] Dr. Benito Schwartz EGFR-AF CYMRO 31 mL/min/1.73m2 Critically low >=60 [place] Comment on above: Performed By: #### F T4 #### [facility] [address] [place] [address] Dr. Benito Schwartz EGFR-NON AF CYMRO 26 mL/min/1.73m2 Critically low >=60 [place] Comment on above: Performed By: #### F T4 #### [facility] [address] [place] [address] Dr. Benito Schwartz Glucose [Mass/Vol] 136 mg/dL Critically high 74-106 [facility] Comment on above: Performed By: #### F T4 #### [facility] [address] [place] [address] Dr. Benito Schwartz Potassium [Moles/Vol] 4.0 mmol/L Normal 3.5-5.1 [place] Comment on above: Performed By: #### F T4 #### [facility] [address] [place] [address] Dr. Benito Schwartz Sodium [Moles/Vol] 137 mmol/L Normal 136-145 [facility] Comment on above: Performed By: #### F T4 #### [facility] [address] [place] [address] Dr. Benito Schwartz Urea nitrogen [Mass/Vol] 47.0 mg/dL Critically high 7.0-18.0 [place] Comment on above: Performed By: #### F T4 #### [facility] [address] [place] [address] Dr. Benito Schwartz Urea nitrogen/Creatinine [Mass ratio] 19.3 mg/mg Normal [place] Comment on above: Performed By: #### F T4 #### [facility] [address] [place] [address] Dr. Benito Schwartz PTH INTACTon 09-10-2022 PTH, Intact 36 pg/mL Normal 15-65 [place] Comment on above: Performed By: #### F T4, PSASC #### [facility] [address] [place] [address] Dr. Benito Schwartz CBC AUTO DIFFon 09-09-2022 BASO # 0.0 103/ul Normal 0.0-0.1 [place] Comment on above: Performed By: #### F T4, PSASC #### [facility] [address] [place] [address] Dr. Benito Schwartz Basophils/100 WBC (Bld) 0.5 % Normal 0.2-2.0 [facility] Comment on above: Performed By: #### F T4, PSASC #### [facility] [address] [place] [address] Dr. Benito Schwartz EO # 0.4 103/ul Normal 0.0-0.7 [place] Comment on above: Performed By: #### F T4, PSASC #### [facility] [address] [place] [address] Dr. Benito Schwartz Eosinophils/100 WBC (Bld) 5.3 % Normal 0.9-7.0 [facility] Comment on above: Performed By: #### F T4, PSASC #### [facility] [address] [place] [address] Dr. Benito Schwartz Erythrocyte distribution width (RBC) [Ratio] 14.3 % Normal 11.0-15.0 [place] Comment on above: Performed By: #### F T4, PSASC #### [facility] [address] [place] [address] Dr. Benito Schwartz Hematocrit (Bld) [Volume fraction] 36.9 % Critically low 42.0-54.0 [place] Comment on above: Performed By: #### F T4, PSASC #### [facility] [address] [place] [address] Dr. Benito Schwartz Hemoglobin (Bld) [Mass/Vol] 12.4 g/dL Critically low 14.0-18.0 [facility] Comment on above: Performed By: #### F T4, PSASC #### [facility] [address] [place] [address] Dr. Benito Schwartz IG # 0.04 10e3/ul Critically high 0.00-0.03 [facility] Comment on above: Performed By: #### F T4, PSASC #### [facility] [address] [place] [address] Dr. Benito Schwartz IG % 0.5 % Normal 0.0-0.5 [facility] Comment on above: Performed By: #### F T4, PSASC #### [facility] [address] [place] [address] Dr. Benito Schwartz LYMPH # 1.6 103/ul Normal 1.2-3.8 [facility] Comment on above: Performed By: #### F T4, PSASC #### [facility] [address] [place] [address] Dr. Benito Schwartz Lymphocytes/100 WBC (Bld) 22.2 % Normal 20.5-60.0 [facility] Comment on above: Performed By: #### F T4, PSASC #### [facility] [address] [place] [address] Dr. Benito Schwartz MANUAL DIFF REQ NO Normal [facility] Comment on above: Performed By: #### F T4, PSASC #### [facility] [address] [place] [address] Dr. Benito Schwartz MCH (RBC) [Entitic mass] 31.2 pg Normal 25.9-34.0 [place] Comment on above: Performed By: #### F T4, PSASC #### [facility] [address] [place] [address] Dr. Benito Schwartz MCHC (RBC) [Mass/Vol] 33.6 g/dL Normal 29.9-35.2 [place] Comment on above: Performed By: #### F T4, PSASC #### [facility] [address] [place] [address] Dr. Benito Schwartz MCV (RBC) [Entitic vol] 92.7 fL Normal 80.0-94.0 [facility] Comment on above: Performed By: #### F T4, PSASC #### [facility] [address] [place] [address] Dr. Benito Schwartz MONO # 0.5 103/ul Normal 0.3-0.8 [place] Comment on above: Performed By: #### F T4, PSASC #### [facility] [address] [place] [address] Dr. Benito Schwartz Monocytes/100 WBC (Bld) 6.4 % Normal 1.7-12.0 [facility] Comment on above: Performed By: #### F T4, PSASC #### [facility] [address] [place] [address] Dr. Benito Schwartz NEUT # 4.8 103/ul Normal 1.4-6.5 [place] Comment on above: Performed By: #### F T4, PSASC #### [facility] [address] [place] [address] Dr. Benito Schwartz Neutrophils/100 WBC (Bld) 65.1 % Normal 43.0-75.0 [place] Comment on above: Performed By: #### F T4, PSASC #### [facility] [address] [address] [address] Benito Schwartz Platelet mean volume (Bld) [Entitic vol] 8.7 fL Critically low 9.5-13.5 [place] Comment on above: Performed By: #### F T4, PSASC #### [facility] [address] [address] [address] Benito Schwartz PLT 206 103/ul Normal 150-450 [place] Comment on above: Performed By: #### F T4, PSASC #### [facility] [address] [address] [address] Benito Schwartz RBC 3.98 106/ul Critically low 4.70-6.10 [facility] Comment on above: Performed By: #### F T4, PSASC #### [facility] [address] [address] [address] Benito Schwartz WBC 7.4 103/ul Normal 4.0-11.0 [place] Comment on above: Performed By: #### F T4, PSASC #### [facility] [address] [place] [address] Dr. Benito Schwartz MAGNESIUMon 09-09-2022 Magnesium [Mass/Vol] 2.1 mg/dL Normal 1.8-2.4 [place] Comment on above: Performed By: #### B 12FOL, FETIBC #### [facility] [address] [place] [address] Dr. Benito Schwartz PHOSPHORUSon 09-09-2022 Phosphate [Mass/Vol] 3.2 mg/dL Normal 2.6-4.7 [place] Comment on above: Performed By: #### B 12FOL, FETIBC #### [facility] [address] [place] [address] Dr. Benito Schwartz PROF CHEM 8 (BAS METB)on Anion gap [Moles/Vol] 10.1 mmol/L Normal [facility] Comment on above: Performed By: #### B 12FOL, FETIBC #### [facility] [address] [place] [address] Dr. Benito Schwartz Calcium [Mass/Vol] 9.3 mg/dL Normal 8.5-10.1 [facility] Comment on above: Performed By: #### B 12FOL, FETIBC #### [facility] [address] [place] [address] Dr. Benito Schwartz Chloride [Moles/Vol] 99 mmol/L Normal 98-107 [place] Comment on above: Performed By: #### B 12FOL, FETIBC #### [facility] [address] [place] [address] Dr. Benito Schwartz CO2 [Moles/Vol] 32.4 mmol/L Critically high 21.0-32.0 [place] Comment on above: Performed By: #### B 12FOL, FETIBC #### [facility] [address] [place] [address] Dr. Benito Schwartz Creatinine [Mass/Vol] 2.77 mg/dL Critically high 0.70-1.30 [place] Comment on above: Performed By: #### B 12FOL, FETIBC #### [facility] [address] [place] [address] Dr. Benito Schwartz EGFR-AF CYMRO 27 mL/min/1.73m2 Critically low >=60 [place] Comment on above: Performed By: #### B 12FOL, FETIBC #### [facility] [address] [place] [address] Dr. Benito Schwartz EGFR-NON AF CYMRO 22 mL/min/1.73m2 Critically low >=60 [place] Comment on above: Performed By: #### B 12FOL, FETIBC #### [facility] [address] [place] [address] Dr. Benito Schwartz Glucose [Mass/Vol] 166 mg/dL Critically high 74-106 [facility] Comment on above: Performed By: #### B 12FOL, FETIBC #### [facility] [address] [place] [address] Dr. Benito Schwartz Potassium [Moles/Vol] 3.5 mmol/L Normal 3.5-5.1 [place] Comment on above: Performed By: #### B 12FOL, FETIBC #### [facility] [address] [address] [address] Benito Schwartz Sodium [Moles/Vol] 138 mmol/L Normal 136-145 [facility] Comment on above: Performed By: #### B 12FOL, FETIBC #### [facility] [address] [address] [address] Benito Schwartz Urea nitrogen [Mass/Vol] 50.0 mg/dL Critically high 7.0-18.0 [place] Comment on above: Performed By: #### B 12FOLoli, FETIBC #### [facility] [address] [place] [address] Dr. Benito Schwartz Urea nitrogen/Creatinine [Mass ratio] 18.1 mg/mg Normal [place] Comment on above: Performed By: #### B 12FOL, FETIBC #### [facility] [address] [place] [address] Dr. Benito Schwartz UA RANDOMon 09-09-2022 Bilirubin Ql (U) Negative Normal NEGATIVE [facility] Comment on above: Performed By: #### V ITAD #### [facility] [address] [place] [address] Dr. Benito Schwartz Clarity (U) CLEAR Normal CLEAR [place] Comment on above: Performed By: #### V ITAD #### [facility] [address] [place] [address] Dr. Benito Schwartz Color (U) LT. YELLOW Normal YELLOW [facility] Comment on above: Performed By: #### V ITAD #### [facility] [address] [place] [address] Dr. Benito Schwartz Glucose Ql (U) Negative Normal NEGATIVE [facility] Comment on above: Performed By: #### V ITAD #### [facility] [address] [place] [address] Dr. Benito Schwartz Hemoglobin Ql (U) Negative Normal NEGATIVE [facility] Comment on above: Performed By: #### V ITAD #### [facility] [address] [place] [address] Dr. Benito Schwartz Ketones Ql (U) Negative Normal NEGATIVE [facility] Comment on above: Performed By: #### V ITAD #### [facility] [address] [place] [address] Dr. Benito Schwartz LEUKOCYTES Negative Normal NEGATIVE [facility] Comment on above: Performed By: #### V ITAD #### [facility] [address] [place] [address] Dr. Benito Schwartz Nitrite Ql (U) Negative Normal NEGATIVE [facility] Comment on above: Performed By: #### V ITAD #### [facility] [address] [place] [address] Dr. Benito Schwartz pH (U) 5.5 [pH] Normal 5-9 [place] Comment on above: Performed By: #### V ITAD #### [facility] [address] [place] [address] Dr. Benito Schwartz SPEC GRAVITY 1.010 Normal 1.005-<=1.[address] [place] [address] Comment on above: Performed By: #### V ITAD #### [facility] [address] [place] [address] Dr. Benito Schwartz UA PROTEIN Negative Normal NEGATIVE/ TRACE [facility] Comment on above: Performed By: #### V ITAD #### [facility] [address] [place] [address] Dr. Benito Schwartz Urobilinogen Qn (U) 0.2 {Jagruti'U}/dL Normal 0.2 - 1. 0 [place] Comment on above: Performed By: #### V ITAD #### [facility] [address] [place] [address] Dr. Benito Schwartz URINE T PROTEIN CREAT RATIOo n 09-09-2022 Protein (U) [Mass/Vol] 16.4 mg/dL Critically high <=12.0 [place] Comment on above: Performed By: #### T SH, FT3, BMP #### [facility] [address] [address] [address] Benito Schwartz UR PROT CREAT RAT 0.79 Normal [facility] Comment on above: Performed By: #### T KRISTOPHER FT3, BMP #### [facility] [address] [address] [address] Benito Schwartz URINE CREAT 20.88 mg/dL Normal 20.00-300.00 [facility] Comment on above: Performed By: #### T KRISTOPHER FT3, BMP #### [facility] [address] [address] [address] Benito Schwartz VITAMIN D 25 OHon 09-09-2022 VIT D 25-OH 83.7 ng/mL Normal [place] Comment on above: Performed By: #### V ITAD #### [facility] [address] [address] [address] Benito Schwartz VIT D RANGES SEE BELOW Normal [place] Comment on above: Result Comment: <20 ng/mL Vit D deficient 20 - <30 ng/mL Vit D insufficient 30 - 100 ng/mL Vit D sufficient >100 ng/mL Potential Toxicity Performed By: #### V ITAD #### [facility] [address] [address] [address] Beniot Schwartz Albumin [Mass/volume] in Ser um or PlasmaOrdered By: Leigha Nelson on 08-31-2022 Albumin [Mass/Vol] 3.9 g/dL 3.2-5.5 [facility] Basophils Auto (Bld) [#/Vol] Ordered By: Leigha Nelson on 08-31-2022 Basophils (Bld) [#/Vol] 0.0 10*3/uL 0.0-0.2 [facility] Basophils/100 WBC Auto (Bld) Ordered By: Leigha Nelson on 08-31-2022 Basophils/100 WBC (Bld) 0.5 % . [facility] Creatinine and Glomerular fi ltration rate.predicted panel (S/P/Bld)Ordered By: Leigha Nelson on 08-31-2022 Creatinine [Mass/Vol] 2.63 mg/dL 0.64-1.27 [facility] Eosinophils Auto (Bld) [#/Vo l]Ordered By: Leigha Nelson on 08-31-2022 Eosinophils (Bld) [#/Vol] 0.3 10*3/uL 0.0-0.45 [facility] Eosinophils/100 WBC Auto (Bl d)Ordered By: Leigha Nelson on 08-31-2022 Eosinophils/100 WBC (Bld) 4.3 % . [facility] Erythrocyte distribution wid th Auto (RBC) [Ratio]Ordered By: Leigha Nelson on 08-31-2022 Erythrocyte distribution width (RBC) [Ratio] 15.7 % 12.0-14.8 [facility] Estimated glomerular filtrat ion rate (GFR) non- AmericanOrdered By: Leigha Nelson on 08-31-2022 GFR/1.73 sq M.predicted among non-blacks MDRD (S/P/Bld) [Vol rate/Area] 24 mL/Min [facility] Globulin Calc (S) [Mass/Vol] Ordered By: Leigha Nelson on 08-31-2022 Globulin (S) [Mass/Vol] 2.8 g/dL [facility] Hematocrit Auto (Bld) [Volum e fraction]Ordered By: Leigha Nelson on 08-31-2022 Hematocrit (Bld) [Volume fraction] 37.2 % 38.8-50.0 [facility] Hemoglobin [Mass/volume] in BloodOrdered By: Leigha Nelson on 08-31-2022 Hemoglobin (Bld) [Mass/Vol] 12.4 g/dL 13.0-17.0 [facility] Laboratory - Hematology and Cell countsOrdered By: Leigha Nelson on 08-31-2022 Nucleated RBC/100 WBC (Bld) [Ratio] 0.1 % 0-0.5 [facility] Leukocytes [#/volume] in Blo od by Automated countOrdered By: Leigha Nelson on 08-31-2022 WBC (Bld) [#/Vol] 6.7 10*3/uL 4.5-11.0 [facility] Lymphocytes Auto (Bld) [#/Vo l]Ordered By: Leigha Nelson on 08-31-2022 Lymphocytes (Bld) [#/Vol] 1.2 10*3/uL 1.00-4.8 [facility] Lymphocytes/100 WBC Auto (Bl d)Ordered By: Leigha Nelson on 08-31-2022 Lymphocytes/100 WBC (Bld) 18.5 % . [facility] MCH Auto (RBC) [Entitic mass ]Ordered By: Leigha Nelson on 08-31-2022 MCH (RBC) [Entitic mass] 31.0 pg 27.5-35.2 [facility] MCHC Auto (RBC) [Mass/Vol]Or dered By: Leigha Nelson on 08-31-2022 MCHC (RBC) [Mass/Vol] 33.4 g/dL 32.5-35.6 [facility] MCV Auto (RBC) [Entitic vol] Ordered By: Leigha Nelson on 08-31-2022 MCV (RBC) [Entitic vol] 92.9 fL 83.5-101 [facility] Monocytes Auto (Bld) [#/Vol] Ordered By: Leigha Nelson on 08-31-2022 Monocytes (Bld) [#/Vol] 0.6 10*3/uL 0.0-0.8 [facility] Monocytes/100 WBC Auto (Bld) Ordered By: Leigha Nelson on 08-31-2022 Monocytes/100 WBC (Bld) 8.4 % . [facility] Neutrophils Auto (Bld) [#/Vo l]Ordered By: Leigha Nelson on 08-31-2022 Neutrophils (Bld) [#/Vol] 4.6 10*3/uL 1.8-7.7 [facility] Neutrophils/100 WBC Auto (Bl d)Ordered By: Leigha Nelson on 08-31-2022 Neutrophils/100 WBC (Bld) 68.3 % . [facility] No Panel InformationOrdered By: Leigha Nelson on 08-31-2022 Estimated GFR () 29 mL/Min [facility] Comment on above: GFR estimated refere nce range: According to KDOQI guidelines, <60 ml/min/1.73m2 is sufficient to diagnose a patient with chronic kidney disease. Pharmacy Creatinine Clearance (Chem 26.08 [facility] Platelet mean volume Auto (B ld) [Entitic vol]Ordered By: Leigha Nelson on 08-31-2022 Platelet mean volume (Bld) [Entitic vol] 6.8 fL 6.6-10.1 [facility] Platelets Auto (Bld) [#/Vol] Ordered By: Leigha Nelson on 08-31-2022 Platelets (Bld) [#/Vol] 238 10*3/uL 150-450 [facility] Protein [Mass/volume] in Ser um or PlasmaOrdered By: Leigha Nelson on 08-31-2022 Protein [Mass/Vol] 6.7 g/dL 6.1-7.9 [facility] RBC Auto (Bld) [#/Vol]Ordere d By: Leigha Nelson on 08-31-2022 RBC (Bld) [#/Vol] 4.00 10*6/uL 3.90-5.60 [facility] Serum or plasma alanine paige otransferase measurement without P-5'-P (enzymatic activiOrdered By: Leigha Nelson on 08-31-2022 ALT No additional P-5'-P [Catalytic activity/Vol] 26 U/L 1060 [facility] Serum or plasma albumin/glob ulin mass ratioOrdered By: Leigha Nelson on 08-31-2022 Albumin/Globulin [Mass ratio] 1.4 {ratio} [facility] Serum or plasma alkaline mega sphatase measurement (enzymatic activity/volume)Ordered By: Leigha Nelson on 08-31-2022 ALP [Catalytic activity/Vol] 112 U/L 32-92 [facility] Serum or plasma anion gap de terminationOrdered By: Leigha Nelson on 08-31-2022 Anion gap [Moles/Vol] 9.4 mmol/L 6.0-15.0 [facility] Serum or plasma aspartate am inotransferase measurement (enzymatic activity/volume)Ordered By: Leigha Nelson on 08-31-2022 AST [Catalytic activity/Vol] 32 U/L 10-42 [facility] Serum or plasma calcium darshan urement (mass/volume)Ordered By: Leigha Nelson on 08-31-2022 Calcium [Mass/Vol] 8.9 mg/dL 8.2-10.2 [facility] Serum or plasma carcinoembry onic antigen measurement (mass/volume)Ordered By: Leigha Nelson on 08-31-2022 Carcinoembryonic Ag [Mass/Vol] 2.5 ng/mL 0.0-3.0 [facility] Serum or plasma chloride ernestine surement (moles/volume)Ordered By: Leigha Nelson on 08-31-2022 Chloride [Moles/Vol] 98 mmol/L 95-114 [facility] Serum or plasma glucose darshna urement (mass/volume)Ordered By: Leigha Nelson on 08-31-2022 Glucose [Mass/Vol] 104 mg/dL 70-100 [facility] Comment on above: ADA recommended refe rence rangeRandom Glucose Reference Range is dependent on time and content of last meal. Glucose of more than 200 mg/dL in a nonstressed, ambulatory subject supports the diagnosis of Diabetes Mellitus. Serum or plasma potassium me asurement (moles/volume)Ordered By: Leigha Nelson on 08-31-2022 Potassium [Moles/Vol] 3.4 mmol/L 3.5-5.1 [facility] Serum or plasma sodium measu rement (moles/volume)Ordered By: Leigha Nelson on 08-31-2022 Sodium [Moles/Vol] 135 mmol/L 136-146 [facility] Serum or plasma total biliru bin measurement (mass/volume)Ordered By: Leigha Nelson on 08-31-2022 Bilirubin [Mass/Vol] 0.8 mg/dL 0.3-1.2 [facility] Serum or plasma total carbon dioxide measurement (moles/volume)Ordered By: Leigha Nelson on 08-31-2022 CO2 [Moles/Vol] 31.0 mmol/L 22.0-30.0 [facility] Serum or plasma urea nitroge n measurement (mass/volume)Ordered By: Leigha Nelson on 08-31-2022 Urea nitrogen [Mass/Vol] 40 mg/dL 9-23 [facility] T3, TOTAL (TRIIODOTHYRONINE) on 08-31-2022 T3, TOTAL 42 ng/dL Critically low 71-180 [facility] Comment on above: Performed By: #### F T4, PSASC #### [facility] [address] [address] [address] Benito Schwartz FREE T4on 08-30-2022 Free T4 [Mass/Vol] 0.11 ng/dL Critically low 0.76-1.46 [facility] Comment on above: Performed By: #### V ITAD #### [facility] [address] [address] [address] Benito Schwartz TSHon 08-30-2022 TSH 121.477 uIU/mL Critically high 0.358-3.740 [place] Comment on above: Performed By: #### F T4 #### [facility] [address] [place] [address] Dr. Benito Schwartz Glucose Glucometer (BldC) [M ass/Vol]Ordered By: Ramesh Rascon on 07-21-2022 Glucose [Mass/Vol] 105 mg/dL [facility] Comment on above: Random Glucose Refer ence Range is dependent on time and content of last meal. Glucose of more than 200 mg/dL in a nonstressed, ambulatory subject supports the diagnosis of Diabetes Mellitus. T3, TOTAL (TRIIODOTHYRONINE) on 07-21-2022 T3, TOTAL 56 ng/dL Critically low 71-180 [facility] Comment on above: Performed By: #### F T4, PSASC #### [facility] [address] [place] [address] Dr. Benito Schwartz FREE T4on 07-20-2022 Free T4 [Mass/Vol] 0.48 ng/dL Critically low 0.76-1.46 [facility] Comment on above: Performed By: #### V ITAD #### [facility] [address] [place] [address] Dr. Benito Schwartz TSHon 07-20-2022 TSH 67.173 uIU/mL Critically high 0.358-3.740 [facility] Comment on above: Performed By: #### U RTPCR #### [facility] [address] [place] [address] Dr. Benito Schwartz COVID-19 SOFIAOrdered By: Lucia Rascon on 07-19-2022 SARS-CoV+SARS-CoV-2 (COVID-19) Ag IA.rapid Ql (Resp) Negative Negative [facility] Comment on above: This is a duplicate Lindsay SARS Antigen (MADHU) result to be used for statistical tracking purpose only. No Panel InformationOrdered By: Ramesh Rascon on 07-19-2022 SARS Antigen (LFIA) [facility] Albumin [Mass/volume] in Ser um or PlasmaOrdered By: Chivo Keller on 05-31-2022 Albumin [Mass/Vol] 3.9 g/dL 3.2-5.5 [facility] Basophils Auto (Bld) [#/Vol] Ordered By: Chivo Keller on 05-31-2022 Basophils (Bld) [#/Vol] 0.1 10*3/uL 0.0-0.2 [facility] Basophils/100 WBC Auto (Bld) Ordered By: Chivo Keller on 05-31-2022 Basophils/100 WBC (Bld) 0.8 % . [facility] Blood hemoglobin measurement (mass/volume)Ordered By: Chivo Keller on 05-31-2022 Hemoglobin (Bld) [Mass/Vol] 11.1 g/dL 13.0-17.0 [facility] Blood leukocytes automated c ount (number/volume)Ordered By: Chivo Keller on 05-31-2022 WBC (Bld) [#/Vol] 8.8 10*3/uL 4.5-11.0 [facility] CT biopsyOrdered By: Danuta Kelly on 05-31-2022 Transferrin [Mass/Vol] 210 mg/dL 180-380 [facility] Creatinine (Bld) [Mass/Vol]O rdered By: Nikunj Shultz on 05-31-2022 Creatinine [Mass/Vol] 2.4 mg/dL 0.6-1.3 [facility] Comment on above: 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 [facility] Erythrocyte distribution wid th Auto (RBC) [Ratio]Ordered By: Chivo Keller on 05-31-2022 Erythrocyte distribution width (RBC) [Ratio] 16.4 % 12.0-14.8 [facility] Estimated glomerular filtrat ion rate (GFR) non- AmericanOrdered By: Chivo Keller on 05-31-2022 GFR/1.73 sq M.predicted among non-blacks MDRD (S/P/Bld) [Vol rate/Area] 28 mL/Min [facility] Ferritin [Mass/volume] in Se rum or PlasmaOrdered By: Danuta Kelly on 05-31-2022 Ferritin [Mass/Vol] 96.9 ng/mL 23.9-336.2 [facility] Folate [Mass/volume] in Seru m or PlasmaOrdered By: Danuta Kelly on 05-31-2022 Folate [Mass/Vol] 17.7 ng/mL >5.9 [facility] Comment on above: Folate reference ran ge: >5.9 ng/ml The WHO technical consultation on folate and vitamin b12 deficiencies has determined that folate concentrations less than 4 ng/ml are considered deficient. Folate reference ran ge: >5.9 ng/mlThe WHO technical consultation on folate and vitamin [id number] has determined that folate concentrations lessthan 4 ng/ml are considered deficient. Globulin Calc (S) [Mass/Vol] Ordered By: Chivo Keller on 05-31-2022 Globulin (S) [Mass/Vol] 3.4 g/dL F [facility] Hematocrit Auto (Bld) [Volum e fraction]Ordered By: Chivo Keller on 05-31-2022 Hematocrit (Bld) [Volume fraction] 33.6 % 38.8-50.0 [facility] Iron [Mass/volume] in Serum or PlasmaOrdered By: Danuta Kelly on 05-31-2022 Iron [Mass/Vol] 42 ug/dL 40-160 [facility] Iron binding capacity [Mass/ volume] in Serum or PlasmaOrdered By: Danuta Kelly on 05-31-2022 Iron binding capacity [Mass/Vol] 294 ug/dL 255-450 [facility] Iron saturation [Mass Fracti on] in Serum or PlasmaOrdered By: Danuta Kelly on 05-31-2022 Iron saturation [Mass fraction] 14.0 % 20-50 [facility] Laboratory - Chemistry and C hemistry - challengeOrdered By: Danuta Kelly on 05-31-2022 Cobalamin (Vitamin B12) [Mass/Vol] 463 pg/mL 180-914 [facility] Laboratory - Hematology and Cell countsOrdered By: Chivo Keller on 05-31-2022 Nucleated RBC/100 WBC (Bld) [Ratio] 0.0 % 0-0.5 [facility] Lymphocytes Auto (Bld) [#/Vo l]Ordered By: Chivo Keller on 05-31-2022 Lymphocytes (Bld) [#/Vol] 1.5 10*3/uL 1.00-4.8 [facility] Lymphocytes/100 WBC Auto (Bl d)Ordered By: Chivo Keller on 05-31-2022 Lymphocytes/100 WBC (Bld) 17.2 % . [facility] MCH Auto (RBC) [Entitic mass ]Ordered By: Chivo Keller on 05-31-2022 MCH (RBC) [Entitic mass] 29.2 pg 27.5-35.2 [facility] MCHC Auto (RBC) [Mass/Vol]Or dered By: Chivo Keller on 05-31-2022 MCHC (RBC) [Mass/Vol] 33.1 g/dL 32.5-35.6 [facility] MCV Auto (RBC) [Entitic vol] Ordered By: Chivo Keller on 05-31-2022 MCV (RBC) [Entitic vol] 88.2 fL 83.5-101 [facility] Monocytes Auto (Bld) [#/Vol] Ordered By: Chivo Keller on 05-31-2022 Monocytes (Bld) [#/Vol] 0.7 10*3/uL 0.0-0.8 [facility] Monocytes/100 WBC Auto (Bld) Ordered By: Chivo Keller on 05-31-2022 Monocytes/100 WBC (Bld) 8.0 % . [facility] Neutrophils Auto (Bld) [#/Vo l]Ordered By: Chivo Keller on 05-31-2022 Neutrophils (Bld) [#/Vol] 6.2 10*3/uL 1.8-7.7 [facility] Neutrophils/100 WBC Auto (Bl d)Ordered By: Chivo Keller on 05-31-2022 Neutrophils/100 WBC (Bld) 69.9 % . [facility] No Panel InformationOrdered By: Nikunj Shultz on 05-31-2022 POC Estimated GFR 32 [facility] Comment on above: GFR estimated refere nce range: According to KDOQI guidelines, <60 ml/min/1.73m2 is sufficient to diagnose a patient with chronic kidney disease. POC Estimated GFR Non- Amer 26 [facility] No Panel InformationOrdered By: Chivo Keller on 05-31-2022 Estimated GFR () 34 mL/Min [facility] Comment on above: GFR estimated refere nce range: According to KDOQI guidelines, <60 ml/min/1.73m2 is sufficient to diagnose a patient with chronic kidney disease. Pharmacy Creatinine Clearance (Chem 31.14 [facility] Platelet mean volume Auto (B ld) [Entitic vol]Ordered By: Chivo Keller on 05-31-2022 Platelet mean volume (Bld) [Entitic vol] 7.0 fL 6.6-10.1 [facility] Platelets Auto (Bld) [#/Vol] Ordered By: Chivo Keller on 05-31-2022 Platelets (Bld) [#/Vol] 308 10*3/uL 150-450 [facility] Protein [Mass/volume] in Ser um or PlasmaOrdered By: Chivo Keller on 05-31-2022 Protein [Mass/Vol] 7.3 g/dL 6.1-7.9 [facility] RBC Auto (Bld) [#/Vol]Ordere d By: Chivo Keller on 05-31-2022 RBC (Bld) [#/Vol] 3.81 10*6/uL 3.90-5.60 [facility] Serum or plasma alanine paige otransferase measurement without P-5'-P (enzymatic activiOrdered By: Chivo Keller on 05-31-2022 ALT No additional P-5'-P [Catalytic activity/Vol] 17 U/L 10-60 [facility] Serum or plasma albumin/glob ulin mass ratioOrdered By: Chivo Keller on 05-31-2022 Albumin/Globulin [Mass ratio] 1.1 {ratio} [facility] Serum or plasma alkaline mega sphatase measurement (enzymatic activity/volume)Ordered By: Chivo Keller on 05-31-2022 ALP [Catalytic activity/Vol] 140 U/L 32-92 [facility] Serum or plasma aspartate am inotransferase measurement (enzymatic activity/volume)Ordered By: Chivo Keller on 05-31-2022 AST [Catalytic activity/Vol] 22 U/L 10-42 [facility] Serum or plasma calcium darshan urement (mass/volume)Ordered By: Chivo Keller on 05-31-2022 Calcium [Mass/Vol] 9.5 mg/dL 8.2-10.2 [facility] Serum or plasma carcinoembry onic antigen measurement (mass/volume)Ordered By: Chivo Keller on 05-31-2022 Carcinoembryonic Ag [Mass/Vol] 1.8 ng/mL 0.0-3.0 [facility] Serum or plasma chloride ernestine surement (moles/volume)Ordered By: Chivo Keller on 05-31-2022 Chloride [Moles/Vol] 101 mmol/L 95-114 [facility] Serum or plasma glucose darshan urement (mass/volume)Ordered By: Chivo Keller on 05-31-2022 Glucose [Mass/Vol] 108 mg/dL 70-100 [facility] Comment on above: ADA recommended refe rence [...] on 05-31-2022 Potassium [Moles/Vol] 4.4 mmol/L 3.5-5.1 [facility] Serum or plasma sodium measu rement (moles/volume)Ordered By: Chivo Keller on 05-31-2022 Sodium [Moles/Vol] 140 mmol/L 136-146 [facility] Serum or plasma total biliru bin measurement (mass/volume)Ordered By: Chivo Keller on 05-31-2022 Bilirubin [Mass/Vol] 0.5 mg/dL 0.3-1.2 [facility] Serum or plasma total carbon dioxide measurement (moles/volume)Ordered By: Chivo Keller on 05-31-2022 CO2 [Moles/Vol] 29.7 mmol/L 22.0-30.0 [facility] Serum or plasma urea nitroge n measurement (mass/volume)Ordered By: Chivo eKller on 05-31-2022 Urea nitrogen [Mass/Vol] 42 mg/dL 9-23 [facility] CBC W/DIFFon 05-26-2022 ABS IMM GRANS 0.1 10*3/uL Normal 0.0-0.2 [facility] Comment on above: Performed By: #### 5 [id number] #### [facility] [address] [place] [address], [facility] ABS NEUTROPHILS 6.4 10*3/uL Normal 1.6-7.6 [facility] Comment on above: Performed By: #### 5 [id number] #### [facility] [address] [place] [address], [facility] Basophils (Bld) [#/Vol] 0.0 10*3/uL Normal 0.0-0.2 [facility] Comment on above: Performed By: #### 5 [id number] #### [facility] [address] [address], [facility] Basophils/100 WBC (Bld) 0.4 % Normal 0.0-1.0 [facility] Comment on above: Performed By: #### 5 [id number] #### [facility] [address] [place] [address], [facility] Eosinophils (Bld) [#/Vol] 0.4 10*3/uL Normal 0.0-0.5 [facility] Comment on above: Performed By: #### 5 [id number] #### [facility] [address] [place] [address], [facility] Eosinophils/100 WBC (Bld) 4.3 % Normal 0.0-6.0 [facility] Comment on above: Performed By: #### 5 [id number] #### [facility] [address] [place] [address], [facility] Erythrocyte distribution width (RBC) [Ratio] 15.9 % High 11.5-15.0 [facility] Comment on above: Performed By: #### 5 [id number] #### [facility] [address] [place] [address], [facility] Hematocrit (Bld) [Volume fraction] 31.6 % Low 39.0-50.0 [facility] Comment on above: Performed By: #### 5 [id number] #### [facility] [address] [place] [address], [facility] Hemoglobin (Bld) [Mass/Vol] 10.0 g/dL Low 13.0-17.0 [facility] Comment on above: Performed By: #### 5 [id number] #### [facility] [address] [place] [address], [facility] IMMATURE GRANS 0.8 % Normal 0.0-1.0 [facility] Comment on above: Performed By: #### 5 [id number] #### [facility] [address] [facility]. [place] [address], [facility] Lymphocytes (Bld) [#/Vol] 1.6 10*3/uL Normal 1.2-4.0 [facility] Comment on above: Performed By: #### 5 3 #### [facility] [address] [place] [address], [facility] Lymphocytes/100 WBC (Bld) 16.8 % Low 20.0-45.0 [facility] Comment on above: Performed By: #### 5 3 #### [facility] [address] [facility] [place] [address], [facility] MCH (RBC) [Entitic mass] 28.7 pg Normal 27.0-33.0 [facility] Comment on above: Performed By: #### 5 0103 #### [facility] [address] [facility] [place] [address], [facility] MCHC (RBC) [Mass/Vol] 31.6 g/dL Low 32.0-35.0 [facility] Comment on above: Performed By: #### 5 0103 #### [facility] [address] [facility] [place] [address], [facility] MCV (RBC) [Entitic vol] 90.5 fL Normal 82.0-98.0 [facility] Comment on above: Performed By: #### 5 3 #### [facility] [address] [facility] [place] [address], [facility] Monocytes (Bld) [#/Vol] 0.8 10*3/uL Normal 0.1-1.0 [facility] Comment on above: Performed By: #### 5 0103 #### [facility] [address] [place] [id number], [facility] MONOS 9.0 % Normal 5.0-12.0 [facility] Comment on above: Performed By: #### 5 0103 #### [facility] [address] [facility] [address], [facility] Neutrophils/100 WBC (Bld) 68.7 % Normal 40.0-72.0 [facility] Comment on above: Performed By: #### 5 0103 #### [facility] [address] [facility] [place] [address], [facility] Nucleated RBC/100 WBC (Bld) [Ratio] 0 % Normal 0-0 [facility] Comment on above: Performed By: #### 5 0103 #### [facility] [address] [facility] [place] [address], [facility] PLAT CNT 292 10*3/uL Normal 150-400 [facility] Comment on above: Performed By: #### 5 3 #### [facility] [address] [facility] [place] [address], [facility] RBC (Bld) [#/Vol] 3.49 10*6/uL Low 4.20-5.70 [facility] Comment on above: Performed By: #### 5 0103 #### [facility] [address] [facility] [place] [address], [facility] WBC (Bld) [#/Vol] 9.29 10*3/uL Normal 4.00-10.60 [facility] Comment on above: Performed By: #### 5 3 #### [facility] [address] [facility] [place] [address], [facility] IMMUNOGLOBULIN Jovany 2 [place] Normal [facility] Comment on above: Result Comment: Test Performed by [email or web address] [facility] [place] [address] - Released 05/27/2022 12:45 IMMUNOGLOBULIN E 308 IU/mL High <101 [facility] THYROID-STIMULATING IMMUNOGL OBULINon 05-14-2022 Thyroid Sim Immunoglobulin <0.10 Normal 0.00-0.55 [place] Comment on above: Performed By: #### C BC #### [facility] [address] [place] [address] [address] Benito Schwartz THYROTROPIN RECEPTOR ABon Thyrotropin Receptor Ab, Serum <1.10 Normal 0.00-1.75 [place] Comment on above: Performed By: #### C BC #### [facility] [address] [address] [address] Benito Schwartz PTH INTACTon 05-13-2022 PTH, Intact 18 pg/mL Normal 15-65 [place] Comment on above: Performed By: #### C BC #### [facility] [address] [place] [address] [address] Benito Schwartz T3, TOTAL (TRIIODOTHYRONINE) on 05-13-2022 T3, TOTAL 80 ng/dL Normal 71-180 [place] Comment on above: Performed By: #### U RTPCR #### [facility] [address] [address] [address] Benito Schwartz VIT D 25-OH LABCORPon 2021 Vitamin D, 25-Hydroxy 84.3 ng/mL Normal 30.0-100.0 [facility] Comment on above: Result Comment: Randi min D deficiency has been defined by the [place] of [employer] and an Endocrine Society practice guideline as a level of serum 25-OH vitamin D less than 20 ng/mL (1,2). The Endocrine Society went on to further define vitamin D insufficiency as a level between 21 and 29 ng/mL (2). 1. IOM ([place] of [employer]). 2010. Dietary reference intakes for calcium and D. [place]: The National Academies Press. 2. Annamarie MF, Milena LE, Jamin BURGESS, et al. Evaluation, treatment, and prevention of vitamin D deficiency: an Endocrine Society clinical practice guideline. JCEM. 2010; 96(7):1911-30. Performed By: #### U RTPCR #### [facility] [address] [address] [address] Benito Schwartz CBC AUTO DIFFon 05-12-2022 BASO # 0.0 103/ul Normal 0.0-0.1 [place] Comment on above: Performed By: #### C BC #### [facility] [address] [address] [address] Benito Schwartz Basophils/100 WBC (Bld) 0.2 % Normal 0.2-2.0 [facility] Comment on above: Performed By: #### C BC #### [facility] [address] [place] [address] Dr. Benito Schwartz EO # 0.4 103/ul Normal 0.0-0.7 [place] Comment on above: Performed By: #### C BC #### [facility] [address] [address] [address] Benito Schwartz Eosinophils/100 WBC (Bld) 4.4 % Normal 0.9-7.0 [place] Comment on above: Performed By: #### C BC #### [facility] [address] [place] [address] Dr. Benito Schwartz Erythrocyte distribution width (RBC) [Ratio] 15.0 % Normal 11.0-15.0 [place] Comment on above: Performed By: #### C BC #### [facility] [address] [place] [address] Dr. Benito Schwartz Hematocrit (Bld) [Volume fraction] 29.8 % Critically low 42.0-54.0 [place] Comment on above: Performed By: #### C BC #### [facility] [address] [place] [address] Dr. Benito Schwartz Hemoglobin (Bld) [Mass/Vol] 9.7 g/dL Critically low 14.0-18.0 [place] Comment on above: Performed By: #### C BC #### [facility] [address] [place] [address] Dr. Benito Schwartz IG # 0.06 10e3/ul Critically high 0.00-0.03 [facility] Comment on above: Performed By: #### C BC #### [facility] [address] [place] [address] Dr. Benito Schwartz IG % 0.7 % Critically high 0.0-0.5 [facility] Comment on above: Performed By: #### C BC #### [facility] [address] [place] [address] Dr. Benito Schwartz LYMPH # 1.9 103/ul Normal 1.2-3.8 [place] Comment on above: Performed By: #### C BC #### [facility] [address] [place] [address] Dr. Benito Schwartz Lymphocytes/100 WBC (Bld) 21.1 % Normal 20.5-60.0 [place] Comment on above: Performed By: #### C BC #### [facility] [address] [place] [address] Dr. Benito Schwartz MANUAL DIFF REQ NO Normal [facility] Comment on above: Performed By: #### C BC #### [facility] [address] [place] [address] Dr. Benito Schwartz MCH (RBC) [Entitic mass] 29.0 pg Normal 25.9-34.0 [place] Comment on above: Performed By: #### C BC #### [facility] [address] [place] [address] Dr. Benito Schwartz MCHC (RBC) [Mass/Vol] 32.6 g/dL Normal 29.9-35.2 [place] Comment on above: Performed By: #### C BC #### [facility] [address] [place] [address] Dr. Benito Schwartz MCV (RBC) [Entitic vol] 89.0 fL Normal 80.0-94.0 [facility] Comment on above: Performed By: #### C BC #### [facility] [address] [place] [address] [address] Benito Schwartz MONO # 0.9 103/ul Critically high 0.3-0.8 [facility] Comment on above: Performed By: #### C BC #### [facility] [address] [address] [address] Benito Schwartz Monocytes/100 WBC (Bld) 9.9 % Normal 1.7-12.0 [facility] Comment on above: Performed By: #### C BC #### [facility] [address] [place] [address] Dr. Benito Schwartz NEUT # 5.8 103/ul Normal 1.4-6.5 [place] Comment on above: Performed By: #### C BC #### [facility] [address] [place] [address] Dr. Benito Schwartz Neutrophils/100 WBC (Bld) 63.7 % Normal 43.0-75.0 [place] Comment on above: Performed By: #### C BC #### [facility] [address] [place] [address] Dr. Benito Schwartz Platelet mean volume (Bld) [Entitic vol] 8.7 fL Critically low 9.5-13.5 [place] Comment on above: Performed By: #### C BC #### [facility] [address] [place], [place] [id number] Dr. Benito Schwartz PLT 253 103/ul Normal 150-450 [facility] Comment on above: Performed By: #### C BC #### [facility] [address] [place] [address] Dr. Benito Schwartz RBC 3.35 106/ul Critically low 4.70-6.10 [facility] Comment on above: Performed By: #### C BC #### [facility] [address] [place] [address] Dr. Benito Schwartz WBC 9.1 103/ul Normal 4.0-11.0 [place] Comment on above: Performed By: #### C BC #### [facility] [address] [place] [address] Dr. Benito Schwartz FREE T4on 05-12-2022 Free T4 [Mass/Vol] 1.25 ng/dL Normal 0.76-1.46 [facility] Comment on above: Performed By: #### V ITAD #### [facility] [address] [place] [address] Dr. Benito Schwartz MAGNESIUMon 05-12-2022 Magnesium [Mass/Vol] 2.1 mg/dL Normal 1.8-2.4 [place] Comment on above: Performed By: #### F T4 #### [facility] [address] [place] [address] Dr. Benito Schwartz PHOSPHORUSon 05-12-2022 Phosphate [Mass/Vol] 4.2 mg/dL Normal 2.6-4.7 [place] Comment on above: Performed By: #### F T4 #### [facility] [address] [place] [address] Dr. Benito Schwartz PROF CHEM 8 (BAS METB)on Anion gap [Moles/Vol] 13.4 mmol/L Normal [facility] Comment on above: Performed By: #### F T4 #### [facility] [address] [place] [address] Dr. Benito Schwartz Calcium [Mass/Vol] 9.1 mg/dL Normal 8.5-10.1 [facility] Comment on above: Performed By: #### F T4 #### [facility] [address] [place] [address] Dr. Benito Schwartz Chloride [Moles/Vol] 103 mmol/L Normal 98-107 [facility] Comment on above: Performed By: #### F T4 #### [facility] [address] [place] [address] Dr. Benito Schwartz CO2 [Moles/Vol] 28.6 mmol/L Normal 21.0-32.0 [facility] Comment on above: Performed By: #### F T4 #### [facility] [address] [place] [address] Dr. Benito Schwartz Creatinine [Mass/Vol] 2.30 mg/dL Critically high 0.70-1.30 [place] Comment on above: Performed By: #### F T4 #### [facility] [address] [address] [address] Benito Schwartz EGFR-AF CYMRO 33 mL/min/1.73m2 Critically low >=60 [place] Comment on above: Performed By: #### F T4 #### [facility] [address] [address] [address] Benito Schwartz EGFR-NON AF CYMRO 27 mL/min/1.73m2 Critically low >=60 [place] Comment on above: Performed By: #### F T4 #### [facility] [address] [address] [address] Benito Schwartz Glucose [Mass/Vol] 123 mg/dL Critically high 74-106 T [facility] Comment on above: Performed By: #### F T4 #### [facility] [address] [address] [address] Benito Schwartz Potassium [Moles/Vol] 4.0 mmol/L Normal 3.5-5.1 [place] Comment on above: Performed By: #### F T4 #### [facility] [address] [address] [address] Benito Schwartz Sodium [Moles/Vol] 141 mmol/L Normal 136-145 [facility] Comment on above: Performed By: #### F T4 #### [facility] [address] [address] [address] Benito Schwartz Urea nitrogen [Mass/Vol] 51.0 mg/dL Critically high 7.0-18.0 [place] Comment on above: Performed By: #### F T4 #### [facility] [address] [address] [address] Benito Schwartz Urea nitrogen/Creatinine [Mass ratio] 22.2 mg/mg Normal [place] Comment on above: Performed By: #### F T4 #### [facility] [address] [address] [address] Benito Schwartz TSHon 05-12-2022 TSH Qn m[IU]/L Critically low 0.358-3.740 [facility] Comment on above: Performed By: #### C BC #### [facility] [address] [place] [address] Dr. Benito Schwartz UA RANDOMon 05-12-2022 Bilirubin Ql (U) Negative Normal NEGATIVE [facility] Comment on above: Performed By: #### U RTPCR #### [facility] [address] [place] [address] Dr. Benito Schwartz Clarity (U) CLEAR Normal CLEAR [place] Comment on above: Performed By: #### U RTPCR #### [facility] [address] [place] [address] Dr. Benito Schwartz Color (U) LT. YELLOW Normal YELLOW [place] Comment on above: Performed By: #### U RTPCR #### [facility] [address] [place] [address] Dr. Benito Schwartz Glucose Ql (U) Negative Normal NEGATIVE [facility] Comment on above: Performed By: #### U RTPCR #### [facility] [address] [place] [address] Dr. Benito Schwartz Hemoglobin Ql (U) Negative Normal NEGATIVE [facility] Comment on above: Performed By: #### U RTPCR #### [facility] [address] [place] [address] Dr. Benito Schwartz Ketones Ql (U) Negative Normal NEGATIVE [facility] Comment on above: Performed By: #### U RTPCR #### [facility] [address] [place] [address] Dr. Benito Schwartz LEUKOCYTES Negative Normal NEGATIVE [place] Comment on above: Performed By: #### U RTPCR #### [facility] [address] [place] [address] Dr. Benito Schwartz Nitrite Ql (U) Negative Normal NEGATIVE [facility] Comment on above: Performed By: #### U RTPCR #### [facility] [address] [place] [address] Dr. Benito Schwartz pH (U) 5.5 [pH] Normal 5-9 [facility] Comment on above: Performed By: #### U RTPCR #### [facility] [address] [place] [address] Dr. Benito Schwartz SPEC GRAVITY 1.010 Normal 1.005-<=1.02 5 [place] Comment on above: Performed By: #### U RTPCR #### [facility] [address] [place] [address] Dr. Benito Schwartz UA PROTEIN Negative Normal NEGATIVE/ TRACE [facility] Comment on above: Performed By: #### U RTPCR #### [facility] [address] [place] [address] Dr. Benito Schwartz Urobilinogen Qn (U) 0.2 {Jagruti'U}/dL Normal 0.2 - 1. 0 [place] Comment on above: Performed By: #### U RTPCR #### [facility] [address] [place] [address] Dr. Benito Schwartz URINE T PROTEIN CREAT RATIOo n 05-12-2022 Protein (U) [Mass/Vol] 18.3 mg/dL Critically high <=12.0 [place] Comment on above: Performed By: #### U RTPCR #### [facility] [address] [place] [address] Dr. Benito Schwartz UR PROT CREAT RAT 0.39 Normal [facility] Comment on above: Performed By: #### U RTPCR #### [facility] [address] [place] [address] Dr. Benito Schwartz URINE CREAT 47.44 mg/dL Normal 20.00-300.00 [facility] Comment on above: Performed By: #### U RTPCR #### [facility] [address] [place] [address] Dr. Benito Schwartz HEMOGLOBINon 05-10-2022 Hemoglobin (Bld) [Mass/Vol] 9.6 g/dL Critically low 14.0-18.0 [place] Comment on above: Performed By: #### F T4, PSASC #### [facility] [address] [place] [address] Dr. Benito Schwartz NM THY SCAN W [...] by: JJ HI Date: 2022-04-28 09:05 Normal [place] T3, TOTAL (TRIIODOTHYRONINE) on 04-09-2022 T3, TOTAL 167 ng/dL Normal 71-180 [place] Comment on above: Performed By: #### B 12FOL, FETIBC #### [facility] [address] [place] [address] Dr. Benito Schwartz FREE T3on 04-08-2022 FREE T3 6.07 pg/mlL Critically high 2.18-3.98 [facility] Comment on above: Performed By: #### T SH, FT3, BMP #### [facility] [address] [place] [address] Dr. Benito Schwartz FREE T4on 04-08-2022 Free T4 [Mass/Vol] 2.62 ng/dL Critically high 0.76-1.46 [facility] Comment on above: Performed By: #### T SH, FT3, BMP #### [facility] [address] [place] [address] Dr. Benito Schwartz PROF CHEM 8 (BAS METB)on Anion gap [Moles/Vol] 13.5 mmol/L Normal [facility] Comment on above: Performed By: #### B 12FOL, FETIBC #### [facility] [address] [place] [address] Dr. Benito Schwartz Calcium [Mass/Vol] 9.9 mg/dL Normal 8.5-10.1 [facility] Comment on above: Performed By: #### B 12FOL, FETIBC #### [facility] [address] [address] [address] Benito Schwartz Chloride [Moles/Vol] 105 mmol/L Normal 98-107 [place] Comment on above: Performed By: #### B 12FOL, FETIBC #### [facility] [address] [address] [address] Benito Schwartz CO2 [Moles/Vol] 26.5 mmol/L Normal 21.0-32.0 [facility] Comment on above: Performed By: #### B 12FOL, FETIBC #### [facility] [address] [address] [address] Benito Schwartz Creatinine [Mass/Vol] 2.33 mg/dL Critically high 0.70-1.30 [place] Comment on above: Performed By: #### B 12FOL, FETIBC #### [facility] [address] [address] [address] Benito Schwartz EGFR-AF CYMRO 33 mL/min/1.73m2 Critically low >=60 [place] Comment on above: Performed By: #### B 12FOL, FETIBC #### [facility] [address] [place] [address] Dr. Benito Schwartz EGFR-NON AF CYMRO 27 mL/min/1.73m2 Critically low >=60 [place] Comment on above: Performed By: #### B 12FOL, FETIBC #### [facility] [address] [address] [address] Benito Schwartz Glucose [Mass/Vol] 104 mg/dL Normal 74-106 [facility] Comment on above: Performed By: #### B 12FOL, FETIBC #### [facility] [address] [place] [address] Dr. Benito Schwartz Potassium [Moles/Vol] 5.0 mmol/L Normal 3.5-5.1 [place] Comment on above: Performed By: #### B 12FOL, FETIBC #### [facility] [address] [address] [address] Benito Schwartz Sodium [Moles/Vol] 140 mmol/L Normal 136-145 [facility] Comment on above: Performed By: #### B 12FOL, FETIBC #### [facility] [address] [place] [address] Dr. Benito Schwartz Urea nitrogen [Mass/Vol] 60.0 mg/dL Critically high 7.0-18.0 [place] Comment on above: Performed By: #### B 12FOL, FETIBC #### [facility] [address] [address] [address] Benito Schwartz Urea nitrogen/Creatinine [Mass ratio] 25.8 mg/mg Normal [place] Comment on above: Performed By: #### B 12FOL, FETIBC #### [facility] [address] [place] [address] Dr. Benito Schwartz TSHon 04-08-2022 TSH Qn m[IU]/L Critically low 0.358-3.740 [facility] Comment on above: Performed By: #### T SH, FT3, BMP #### [facility] [address] [place] [address] Dr. Benito Schwartz BASIC METABOLIC PANELon 03-16 Calcium [Mass/Vol] 9.1 mg/dL Normal 8.6-10.3 [facility] Comment on above: Order Comment: No: D o not add to previous draw Performed By: #### 1 007, [id number] #### [facility] [address] [place] [address], [place] Chloride [Moles/Vol] 106 mmol/L Normal 98-107 [facility] Comment on above: Order Comment: No: D o not add to previous draw Performed By: #### 1 69, [id number] #### [facility] [address] [place] [address], [place] CO2 [Moles/Vol] 25 mmol/L Normal 21-31 [facility] Comment on above: Order Comment: No: D o not add to previous draw Performed By: #### 1 69, [id number] #### [facility] [address] [place] [address], [place] Creatinine [Mass/Vol] 2.12 mg/dL High 0.70-1.30 [facility] Comment on above: Order Comment: No: D o not add to previous draw Performed By: #### 1 69, [id number] #### [facility] [address] [place] [address], [facility] eGFR- 37 ml/min/1.73sq m Abnormal >60 [facility] Comment on above: Order Comment: No: D o not add to previous draw Result Comment: Calc ulation may not be valid for patients over 70 years Performed By: #### 1 69, [id number] #### [facility] [address] [place] [address], [facility] eGFR- non- 30 ml/min/1.73sq m Abnormal >60 [facility] Comment on above: Order Comment: No: D o not add to previous draw Result Comment: Calc ulation may not be valid for patients over 70 years Performed By: #### 1 69, [id number] #### [facility] [address] [place] [address], [place] Glucose [Mass/Vol] 93 mg/dL Normal 70-100 [facility] Comment on above: Order Comment: No: D o not add to previous draw Performed By: #### 1 69, [id number] #### [facility] [address] [place] [address], [place] Potassium [Moles/Vol] 3.9 mmol/L Normal 3.5-5.1 [facility] Comment on above: Order Comment: No: D o not add to previous draw Performed By: #### 1 69, [id number] #### [facility] [address] [place] [address], [place] Sodium [Moles/Vol] 141 mmol/L Normal 136-145 [facility] Comment on above: Order Comment: No: D o not add to previous draw Performed By: #### 1 0, [id number] #### [facility] [address] [place] [address], [facility] Urea nitrogen [Mass/Vol] 56 mg/dL High 7-25 [facility] Comment on above: Order Comment: No: D o not add to previous draw Performed By: #### 1 0, [id number] #### [facility] [address] [place] [address], [facility] CBC COMPLETE BLOOD COUNTon 04-02-2022 Erythrocyte distribution width (RBC) [Ratio] 13.6 % Normal 11.5-15.0 [facility] Comment on above: Order Comment: No: D o not add to previous draw Performed By: #### 5 3 #### [facility] [address] [place] [address], [facility] Hematocrit (Bld) [Volume fraction] 26.2 % Low 39.0-50.0 [facility] Comment on above: Order Comment: No: D o not add to previous draw Performed By: #### 5 0103 #### [facility] [address] [place] [address], [facility] Hemoglobin (Bld) [Mass/Vol] 8.7 g/dL Low 13.0-17.0 [facility] Comment on above: Order Comment: No: D o not add to previous draw Performed By: #### 5 0103 #### [facility] [address] [place] [address], [facility] MCH (RBC) [Entitic mass] 29.3 pg Normal 27.0-33.0 [facility] Comment on above: Order Comment: No: D o not add to previous draw Performed By: #### 5 0103 #### [facility] [address] [place] [address], [facility] MCHC (RBC) [Mass/Vol] 33.2 g/dL Normal 32.0-35.0 [facility] Comment on above: Order Comment: No: D o not add to previous draw Performed By: #### 5 0103 #### [facility] [address] [place] [address], [facility] MCV (RBC) [Entitic vol] 88.2 fL Normal 82.0-98.0 [facility] Comment on above: Order Comment: No: D o not add to previous draw Performed By: #### 5 0103 #### [facility] [address] [place] [address], [facility] Nucleated RBC/100 WBC (Bld) [Ratio] 0 % Normal 0-0 [facility] Comment on above: Order Comment: No: D o not add to previous draw Performed By: #### 5 0103 #### [facility] [address] [place] [address], [facility] PLAT CNT 190 10*3/uL Normal 150-400 [facility] Comment on above: Order Comment: No: D o not add to previous draw Performed By: #### 5 0103 #### [facility] [address] [place] [address], [facility] RBC (Bld) [#/Vol] 2.97 10*6/uL Low 4.20-5.70 [facility] Comment on above: Order Comment: No: D o not add to previous draw Performed By: #### 5 0103 #### [facility] [address] [place] [address], [facility] WBC (Bld) [#/Vol] 5.20 10*3/uL Normal 4.00-10.60 [facility] Comment on above: Order Comment: No: D o not add to previous draw Performed By: #### 5 0103 #### [facility] [address] [facility] [place] [id number], [facility] MAGNESIUM BLOODon 04-02-2022 Magnesium [Mass/Vol] 2.2 mg/dL Normal 1.9-2.7 [facility] Comment on above: Order Comment: No: D o not add to previous draw Performed By: #### 1 0070, [id number] #### [facility] [address] [place] [address], [facility] POC GLUCOSE LABon 04-02-2022 Glucose [Mass/Vol] 99 mg/dL Normal 70-100 [facility] Comment on above: Performed By: #### 5 0608 #### [facility] [address] [place] [address], [facility] BASIC METABOLIC PANELon 03-16 Calcium [Mass/Vol] 9.1 mg/dL Normal 8.6-10.3 [facility] Comment on above: Order Comment: No: D o not add to previous draw Performed By: #### 5 0608 #### [facility] [address] [place] [address], [facility] Chloride [Moles/Vol] 106 mmol/L Normal 98-107 [facility] Comment on above: Order Comment: No: D o not add to previous draw Performed By: #### 5 0608 #### [facility] [address] [place] [address], [facility] CO2 [Moles/Vol] 25 mmol/L Normal 21-31 [facility] Comment on above: Order Comment: No: D o not add to previous draw Performed By: #### 5 0608 #### [facility] [address] [place] [address], [facility] Creatinine [Mass/Vol] 2.07 mg/dL High 0.70-1.30 [facility] Comment on above: Order Comment: No: D o not add to previous draw Performed By: #### 5 0608 #### [facility] [address] [place] [address], [facility] eGFR- 38 ml/min/1.73sq m Abnormal >60 [facility] Comment on above: Order Comment: No: D o not add to previous draw Result Comment: Calc ulation may not be valid for patients over 70 years Performed By: #### 5 0608 #### [facility] [address] [place] [address], [facility] eGFR- non- 31 ml/min/1.73sq m Abnormal >60 [facility] Comment on above: Order Comment: No: D o not add to previous draw Result Comment: Calc ulation may not be valid for patients over 70 years Performed By: #### 5 0608 #### [facility] [address] [place] [address], [place] Glucose [Mass/Vol] 94 mg/dL Normal 70-100 [facility] Comment on above: Order Comment: No: D o not add to previous draw Performed By: #### 5 0608 #### [facility] [address] [place] [address], [place] Potassium [Moles/Vol] 3.9 mmol/L Normal 3.5-5.1 [facility] Comment on above: Order Comment: No: D o not add to previous draw Performed By: #### 5 0608 #### [facility] [address] [place] [address], [place] Sodium [Moles/Vol] 144 mmol/L Normal 136-145 [facility] Comment on above: Order Comment: No: D o not add to previous draw Performed By: #### 5 0608 #### [facility] [address] [place] [address], [place] Urea nitrogen [Mass/Vol] 54 mg/dL High 7-25 [facility] Comment on above: Order Comment: No: D o not add to previous draw Performed By: #### 5 0608 #### [facility] [address] [place] [address], [facility] CBC COMPLETE BLOOD COUNTon 0 - Erythrocyte distribution width (RBC) [Ratio] 13.5 % Normal 11.5-15.0 [facility] Comment on above: Order Comment: No: D o not add to previous draw Performed By: #### 5 0608 #### [facility] [address] [place] [address], [facility] Hematocrit (Bld) [Volume fraction] 27.5 % Low 39.0-50.0 [facility] Comment on above: Order Comment: No: D o not add to previous draw Performed By: #### 5 0608 #### [facility] [address] [place] [id number], [facility] Hemoglobin (Bld) [Mass/Vol] 8.9 g/dL Low 13.0-17.0 [facility] Comment on above: Order Comment: No: D o not add to previous draw Performed By: #### 5 0608 #### [facility] [address] [place] [address], [facility] MCH (RBC) [Entitic mass] 29.2 pg Normal 27.0-33.0 [facility] Comment on above: Order Comment: No: D o not add to previous draw Performed By: #### 5 0608 #### [facility] [address] [place] [address], [facility] MCHC (RBC) [Mass/Vol] 32.4 g/dL Normal 32.0-35.0 [facility] Comment on above: Order Comment: No: D o not add to previous draw Performed By: #### 5 0608 #### [facility] [address] [place] [id number], [facility] MCV (RBC) [Entitic vol] 90.2 fL Normal 82.0-98.0 T [facility] Comment on above: Order Comment: No: D o not add to previous draw Performed By: #### 5 0608 #### [facility] [address] [place] [id number], [facility] Nucleated RBC/100 WBC (Bld) [Ratio] 0 % Normal 0-0 [facility] Comment on above: Order Comment: No: D o not add to previous draw Performed By: #### 5 0608 #### [facility] [address] [place] [address], [facility] PLAT CNT 213 10*3/uL Normal 150-400 [facility] Comment on above: Order Comment: No: D o not add to previous draw Performed By: #### 5 0608 #### [facility] [address] [place] [address], [facility] RBC (Bld) [#/Vol] 3.05 10*6/uL Low 4.20-5.70 [facility] Comment on above: Order Comment: No: D o not add to previous draw Performed By: #### 5 0608 #### [facility] [address] [facility] [place] [address], [facility] WBC (Bld) [#/Vol] 6.02 10*3/uL Normal 4.00-10.60 [facility] Comment on above: Order Comment: No: D o not add to previous draw Performed By: #### 5 0608 #### [facility] [address] Cardiovascular Lab Reporton 04-01-2022 Cardiovascular Lab Report [facility] Patient Name: Melody [facility] MR #: [id number] Physician: Sriram Rick, Department of M.D. Medicine Service Date: 03/31/2022 Division of Birthdate: 1940 Cardiology Room #: 3AB [id number] Adult Cardiovascular Services [facility] [address] [place], [place] [address] Cardiovascular Laboratory Report FINAL IMPRESSIONS: 1. Moderately [...] right internal jugular vein was obtained. A 6-Namibian 11 cm sheath was inserted without difficulty. [...] M.D. Date Trans: 04/01/2022 02:03 Jay Jay/hans [id number] cc: Arnie Linda D.O. [address] [place] [id number] Normal [facility] HEMOGLOBIN A1Con 04-01-2022 Glucose [Moles/Vol] 137 mmol/L Normal [facility] Comment on above: Order Comment: If no t done in EDNo: Do not add to previous draw Performed By: #### 5 0103 #### [facility] [address] [place] [address], [place] HbA1c (Bld) [Mass fraction] 6.4 % High 4.0-6.0 [facility] Comment on above: Order Comment: If no t done in EDNo: Do not add to previous draw Performed By: #### 5 0103 #### [facility] [address] [place] [address], [place] MAGNESIUM BLOODon 04-01-2022 Magnesium [Mass/Vol] 2.2 mg/dL Normal 1.9-2.7 [facility] Comment on above: Order Comment: No: D o not add to previous draw Performed By: #### 5 0608 #### [facility] [address] [place] [address], [place] POC GLUCOSE LABon 04-01-2022 Glucose [Mass/Vol] 114 mg/dL High 70-100 [facility] Comment on above: Performed By: #### 5 0103 #### [facility] [address] [place] [address], [place] Glucose [Mass/Vol] 117 mg/dL High 70-100 [facility] Comment on above: Performed By: #### 5 0608 #### [facility] [address] [place] [address], [place] Glucose [Mass/Vol] 139 mg/dL High 70-100 [facility] Comment on above: Performed By: #### 5 0608 #### [facility] [address] [place] [address], [place] Glucose [Mass/Vol] 98 mg/dL Normal 70-100 [facility] Comment on above: Performed By: #### 5 0608 #### [facility] [address] [place] [address], [facility] BASIC METABOLIC PANELon - Calcium [Mass/Vol] 9.1 mg/dL Normal 8.6-10.3 [facility] Comment on above: Order Comment: No: D o not add to previous draw Performed By: #### 4 4396, 34263, 32506, 71279, 12593 #### [facility] [address] [place] [address], [place] Chloride [Moles/Vol] 104 mmol/L Normal 98-107 [facility] Comment on above: Order Comment: No: D o not add to previous draw Performed By: #### 4 4396, 40208, 32530, 72781, 72725 #### [facility] [address] [place] [address], [place] CO2 [Moles/Vol] 27 mmol/L Normal 21-31 [facility] Comment on above: Order Comment: No: D o not add to previous draw Performed By: #### 4 4396, 70967, 87759, 84183, 74949 #### [facility] [address] [place] [address], [place] Creatinine [Mass/Vol] 2.59 mg/dL High 0.70-1.30 [facility] Comment on above: Order Comment: No: D o not add to previous draw Performed By: #### 4 4396, 11237, 58236, 12141, 20382 #### [facility] [address] [place] [address], [place] eGFR- 29 ml/min/1.73sq m Abnormal >60 [facility] Comment on above: Order Comment: No: D o not add to previous draw Result Comment: Calc ulation may not be valid for patients over 70 years Performed By: #### 4 4396, 24137, 39639, 90585, 46990 #### [facility] [address] [place] [address], [place] eGFR- non- 24 ml/min/1.73sq m Abnormal >60 [facility] Comment on above: Order Comment: No: D o not add to previous draw Result Comment: Calc ulation may not be valid for patients over 70 years Performed By: #### 4 4396, 22059, 92934, 13856, 59586 #### [facility] [address] [place] [address], [place] Glucose [Mass/Vol] 90 mg/dL Normal 70-100 [facility] Comment on above: Order Comment: No: D o not add to previous draw Performed By: #### 4 4396, 98459, 09056, 85424, 57233 #### [facility] [address] [place] [address], [place] Potassium [Moles/Vol] 4.2 mmol/L Normal 3.5-5.1 [facility] Comment on above: Order Comment: No: D o not add to previous draw Performed By: #### 4 4396, 66466, 06270, 73762, 62286 #### [facility] [address] [place] [address], [place] Sodium [Moles/Vol] 141 mmol/L Normal 136-145 [facility] Comment on above: Order Comment: No: D o not add to previous draw Performed By: #### 4 4396, 15176, 75638, 27693, 83782 #### [facility] [address] [place] [address], [place] Urea nitrogen [Mass/Vol] 55 mg/dL High 7-25 [facility] Comment on above: Order Comment: No: D o not add to previous draw Performed By: #### 4 4396, 84016, 03915, 46136, 47377 #### [facility] [address] [place] [address], [place] CBC COMPLETE BLOOD COUNTon 0 03-31-2022 Erythrocyte distribution width (RBC) [Ratio] 13.6 % Normal 11.5-15.0 [facility] Comment on above: Order Comment: No: D o not add to previous draw Performed By: #### 5 0608 #### [facility] [address] [place] [address], [facility] Hematocrit (Bld) [Volume fraction] 27.1 % Low 39.0-50.0 [facility] Comment on above: Order Comment: No: D o not add to previous draw Performed By: #### 5 0608 #### [facility] [address] [place] [id number], [facility] Hemoglobin (Bld) [Mass/Vol] 8.7 g/dL Low 13.0-17.0 [facility] Comment on above: Order Comment: No: D o not add to previous draw Performed By: #### 5 0608 #### [facility] [address] [facility] [place] [id number], [facility] MCH (RBC) [Entitic mass] 28.8 pg Normal 27.0-33.0 [facility] Comment on above: Order Comment: No: D o not add to previous draw Performed By: #### 5 0608 #### [facility] [address] [address], [facility] MCHC (RBC) [Mass/Vol] 32.1 g/dL Normal 32.0-35.0 [facility] Comment on above: Order Comment: No: D o not add to previous draw Performed By: #### 5 0608 #### [facility] [address] [place] [address], [facility] MCV (RBC) [Entitic vol] 89.7 fL Normal 82.0-98.0 [facility] Comment on above: Order Comment: No: D o not add to previous draw Performed By: #### 5 0608 #### [facility] [address] [place] [id number], [facility] Nucleated RBC/100 WBC (Bld) [Ratio] 0 % Normal 0-0 [facility] Comment on above: Order Comment: No: D o not add to previous draw Performed By: #### 5 0608 #### [facility] [address] [place] [address], [facility] PLAT CNT 184 10*3/uL Normal 150-400 [facility] Comment on above: Order Comment: No: D o not add to previous draw Performed By: #### 5 0608 #### [facility] [address] [facility] [place] [address], [facility] RBC (Bld) [#/Vol] 3.02 10*6/uL Low 4.20-5.70 [facility] Comment on above: Order Comment: No: D o not add to previous draw Performed By: #### 5 0608 #### [facility] [address] [facility] [place] [address], [facility] WBC (Bld) [#/Vol] 5.93 10*3/uL Normal 4.00-10.60 [facility] Comment on above: Order Comment: No: D o not add to previous draw Performed By: #### 5 0608 #### [facility] [address] [facility] [place] [address], [facility] FREE T4on 03-31-2022 Free T4 [Mass/Vol] 4.55 ng/dL High 0.71-1.85 [facility] Comment on above: Performed By: #### 5 0103 #### [facility] [address] [facility] [place] [address], [facility] MAGNESIUM BLOODon 03-31-2022 Magnesium [Mass/Vol] 2.3 mg/dL Normal 1.9-2.7 [facility] Comment on above: Order Comment: No: D o not add to previous draw Performed By: #### 4 4396, 30023, 98358, 35401, 53403 #### [facility] [address] [place] [address], [place] PHOSPHORUS BLOODon 2 Phosphate [Mass/Vol] 5.4 mg/dL High 2.5-5.0 [facility] Comment on above: Order Comment: No: D o not add to previous draw Performed By: #### 4 4396, 72149, 99062, 45398, 97691 #### [facility] [address] [place] [address], [facility] POC GLUCOSE LABon 03-31-2022 Glucose [Mass/Vol] 161 mg/dL High 70-100 [facility] Comment on above: Performed By: #### 5 0608 #### [facility] [address] [place] [id number], [facility] Glucose [Mass/Vol] 108 mg/dL High 70-100 [facility] Comment on above: Performed By: #### 5 0608 #### [facility] [address] [facility] POC SARS COV2 ANTIGEN NEGATI VEon 03-31-2022 POC SARS COV2 ANTIGEN NEG Negative Normal NEGATIVE [facility] Comment on above: Result Comment: Nega tive [...] antigen from SARS-CoV-2 in direct nasopharyngeal swab (PUBLIC AFFAIRS MANAGER) specimens from individuals who are suspected of [...] Accreditation. Performed By: #### 5 0103 #### [facility] [address] [place] [address], [facility] TSH3on 03-31-2021 TSH 3RD GENERATION <0.01 Critically low 0.34-5.60 Th e [facility] Comment on above: Performed By: #### 4 4396, 26897, 36200, 33055, 37979 #### [facility] [address] [place] [address], [facility] BASIC METABOLIC PANELon 03-16 Calcium [Mass/Vol] 9.8 mg/dL Normal 8.6-10.3 [facility] Comment on above: Order Comment: No: D o not add to previous draw Performed By: #### 5 0103 #### [facility] [address] [place] [address], [facility] Chloride [Moles/Vol] 103 mmol/L Normal 98-107 [facility] Comment on above: Order Comment: No: D o not add to previous draw Performed By: #### 5 0103 #### [facility] [address] [place] [address], [facility] CO2 [Moles/Vol] 29 mmol/L Normal 21-31 [facility] Comment on above: Order Comment: No: D o not add to previous draw Performed By: #### 5 0103 #### [facility] [address] [place] [address], [facility] Creatinine [Mass/Vol] 2.60 mg/dL High 0.70-1.30 [facility] Comment on above: Order Comment: No: D o not add to previous draw Performed By: #### 5 0103 #### [facility] [address] [place] [address], [facility] eGFR- 29 ml/min/1.73sq m Abnormal >60 [facility] Comment on above: Order Comment: No: D o not add to previous draw Result Comment: Calc ulation may not be valid for patients over 70 years Performed By: #### 5 0103 #### [facility] [address] eGFR- non- 24 ml/min/1.73sq m Abnormal >60 [facility] Comment on above: Order Comment: No: D o not add to previous draw Result Comment: Calc ulation may not be valid for patients over 70 years Performed By: #### 5 0103 #### [facility] [address] [place] [address], [facility] Glucose [Mass/Vol] 109 mg/dL High 70-100 [facility] Comment on above: Order Comment: No: D o not add to previous draw Performed By: #### 5 0103 #### [facility] [address] [facility] [place] [address], [facility] Potassium [Moles/Vol] 4.0 mmol/L Normal 3.5-5.1 [facility] Comment on above: Order Comment: No: D o not add to previous draw Performed By: #### 5 0103 #### [facility] [address] [facility] [place] [address], [facility] Sodium [Moles/Vol] 141 mmol/L Normal 136-145 [facility] Comment on above: Order Comment: No: D o not add to previous draw Performed By: #### 5 0103 #### [facility] [address] [place] [address], [facility] Urea nitrogen [Mass/Vol] 55 mg/dL High 7-25 [facility] Comment on above: Order Comment: No: D o not add to previous draw Performed By: #### 5 0103 #### [facility] [address] [place] [address], [facility] CBC W/DIFFon 03-30-2022 ABS IMM GRANS 0.0 10*3/uL Normal 0.0-0.2 [facility] Comment on above: Performed By: #### 5 0103 #### [facility] [address] [place] [address], [facility] ABS NEUTROPHILS 4.1 10*3/uL Normal 1.6-7.6 [facility] Comment on above: Performed By: #### 5 0103 #### [facility] [address] [place] [address], [facility] Basophils (Bld) [#/Vol] 0.0 10*3/uL Normal 0.0-0.2 [facility] Comment on above: Performed By: #### 5 0103 #### [facility] [address] [facility] [place] [address], [facility] Basophils/100 WBC (Bld) 0.3 % Normal 0.0-1.0 T [facility] Comment on above: Performed By: #### 5 0103 #### [facility] [address] [place] [address], [facility] Eosinophils (Bld) [#/Vol] 0.3 10*3/uL Normal 0.0-0.5 [facility] Comment on above: Performed By: #### 5 0103 #### [facility] [address] [facility] [place] [address], [facility] Eosinophils/100 WBC (Bld) 5.3 % Normal 0.0-6.0 [facility] Comment on above: Performed By: #### 5 0103 #### [facility] [address] [facility] [place] [address], [facility] Erythrocyte distribution width (RBC) [Ratio] 13.7 % Normal 11.5-15.0 [facility] Comment on above: Performed By: #### 5 [id number] #### [facility] [address] [place] [address], [facility] Hematocrit (Bld) [Volume fraction] 30.2 % Low 39.0-50.0 [facility] Comment on above: Performed By: #### 5 [id number] #### [facility] [address] [place] [address], [facility] Hemoglobin (Bld) [Mass/Vol] 9.8 g/dL Low 13.0-17.0 [facility] Comment on above: Performed By: #### 5 0103 #### [facility] [address] [place] [address], [facility] IMMATURE GRANS 0.3 % Normal 0.0-1.0 [facility] Comment on above: Performed By: #### 5 0103 #### [facility] [address] Lymphocytes (Bld) [#/Vol] 1.1 10*3/uL Low 1.2-4.0 [facility] Comment on above: Performed By: #### 5 0103 #### [facility] [address] Lymphocytes/100 WBC (Bld) 17.9 % Low 20.0-45.0 [facility] Comment on above: Performed By: #### 5 0103 #### [facility] [address] MCH (RBC) [Entitic mass] 29.3 pg Normal 27.0-33.0 [facility] Comment on above: Performed By: #### 5 0103 #### [facility] [address] [place] [address], [facility] MCHC (RBC) [Mass/Vol] 32.5 g/dL Normal 32.0-35.0 [facility] Comment on above: Performed By: #### 5 3 #### [facility] [address] [place] [address], [facility] MCV (RBC) [Entitic vol] 90.4 fL Normal 82.0-98.0 [facility] Comment on above: Performed By: #### 5 102 #### [facility] [address] [place] [address], [facility] Monocytes (Bld) [#/Vol] 0.7 10*3/uL Normal 0.1-1.0 [facility] Comment on above: Performed By: #### 5 102 #### [facility] [address] [place] [address], [facility] MONOS 11.6 % Normal 5.0-12.0 [facility] Comment on above: Performed By: #### 5 102 #### [facility] [address] [place] [address], [facility] Neutrophils/100 WBC (Bld) 64.6 % Normal 40.0-72.0 [facility] Comment on above: Performed By: #### 102 #### [facility] [address] Nucleated RBC/100 WBC (Bld) [Ratio] 0 % Normal 0-0 [facility] Comment on above: Performed By: #### 5 102 #### [facility] [address] [place] [address], [facility] PLAT CNT 215 10*3/uL Normal 150-400 [facility] Comment on above: Performed By: #### 5 102 #### [facility] [address] [place] [address], [facility] RBC (Bld) [#/Vol] 3.34 10*6/uL Low 4.20-5.70 [facility] Comment on above: Performed By: #### 5 102 #### [facility] [address] [place] [address], [facility] WBC (Bld) [#/Vol] 6.38 10*3/uL Normal 4.00-10.60 [facility] Comment on above: Performed By: #### 102 #### [facility] [address] [facility] [place] [address], [facility] MAGNESIUM BLOODon 03-30-2022 Magnesium [Mass/Vol] 2.3 mg/dL Normal 1.9-2.7 [facility] Comment on above: Order Comment: No: D o not add to previous draw Performed By: #### 5 0103 #### [facility] [address] [facility] [place] [address], [facility] TROPONIN-Ion 03-30-2022 Troponin I.cardiac [Mass/Vol] 0.04 ng/mL Normal 0.00-0.04 [facility] Comment on above: Order Comment: No: D o not add to previous draw Result Comment: REFE RENCE RANGES: 0.00 - 0.04 ng/ml NORMAL 0.05 - 0.50 ng/ml INDETERMINATE > 0.50 ng/ml CONSISTENT WITH AN M.I. Performed By: #### 5 0103 #### [facility] [address] BNPon 03-25-2022 Natriuretic peptide B (Bld) [Mass/Vol] 7410.0 pg/mL Critically high <=1,800.0 [place] Comment on above: Performed By: #### F T4 #### [facility] [address] [place] [address] Dr. Benito Schwartz PROF CHEM 8 (BAS METB)on Anion gap [Moles/Vol] 14.5 mmol/L Normal [facility] Comment on above: Performed By: #### F T4 #### [facility] [address] [place] [address] Dr. Benito Schwartz Calcium [Mass/Vol] 9.6 mg/dL Normal 8.5-10.1 [facility] Comment on above: Performed By: #### F T4 #### [facility] [address] [place] [address] Dr. Benito Schwartz Chloride [Moles/Vol] 105 mmol/L Normal 98-107 [place] Comment on above: Performed By: #### F T4 #### [facility] [address] [address] [address] Benito Schwartz CO2 [Moles/Vol] 27.6 mmol/L Normal 21.0-32.0 [facility] Comment on above: Performed By: #### F T4 #### [facility] [address] [address] [address] Benito Schwartz Creatinine [Mass/Vol] 2.48 mg/dL Critically high 0.70-1.30 [place] Comment on above: Performed By: #### F T4 #### [facility] [address] [address] [address] Benito Schwartz EGFR-AF CYMRO 31 mL/min/1.73m2 Critically low >=60 [place] Comment on above: Performed By: #### F T4 #### [facility] [address] [address] [address] Benito Schwartz EGFR-NON AF CYMRO 25 mL/min/1.73m2 Critically low >=60 [place] Comment on above: Performed By: #### F T4 #### [facility] [address] [address] [address] Benito Schwartz Glucose [Mass/Vol] 116 mg/dL Critically high 74-106 [facility] Comment on above: Performed By: #### F T4 #### [facility] [address] [address] [address] Benito Schwartz Potassium [Moles/Vol] 4.1 mmol/L Normal 3.5-5.1 [place] Comment on above: Performed By: #### F T4 #### [facility] [address] [address] [address] Benito Schwartz Sodium [Moles/Vol] 143 mmol/L Normal 136-145 [facility] Comment on above: Performed By: #### F T4 #### [facility] [address] [address] [address] Benito Schwartz Urea nitrogen [Mass/Vol] 56.0 mg/dL Critically high 7.0-18.0 [place] Comment on above: Performed By: #### F T4 #### [facility] [address] [place] [address] Dr. Benito Schwartz Urea nitrogen/Creatinine [Mass ratio] 22.6 mg/mg Normal [place] Comment on above: Performed By: #### F T4 #### [facility] [address] [place] [address] Dr. Benito Schwartz CBC AUTO DIFFon 03-07-2022 BASO # 0.0 103/ul Normal 0.0-0.1 [place] Comment on above: Performed By: #### V ITAD #### [facility] [address] [place] [address] Dr. Benito Schwartz Basophils/100 WBC (Bld) 0.3 % Normal 0.2-2.0 [facility] Comment on above: Performed By: #### V ITAD #### [facility] [address] [place] [address] Dr. Benito Schwartz EO # 0.1 103/ul Normal 0.0-0.7 [place] Comment on above: Performed By: #### V ITAD #### [facility] [address] [place] [address] Dr. Benito Schwartz Eosinophils/100 WBC (Bld) 2.4 % Normal 0.9-7.0 [place] Comment on above: Performed By: #### V ITAD #### [facility] [address] [place] [address] Dr. Benito Schwartz Erythrocyte distribution width (RBC) [Ratio] 13.4 % Normal 11.0-15.0 [place] Comment on above: Performed By: #### V ITAD #### [facility] [address] [place] [address] Dr. Benito Schwartz Hematocrit (Bld) [Volume fraction] 27.7 % Critically low 42.0-54.0 [place] Comment on above: Performed By: #### V ITAD #### [facility] [address] [place] [address] Dr. Benito Schwartz Hemoglobin (Bld) [Mass/Vol] 8.8 g/dL Critically low 14.0-18.0 [place] Comment on above: Performed By: #### V ITAD #### [facility] [address] [address] [address] Benito Schwartz IG # 0.02 10e3/ul Normal 0.00-0.03 [place] Comment on above: Performed By: #### V ITAD #### [facility] [address] [address] [address] Benito Schwartz IG % 0.3 % Normal 0.0-0.5 [place] Comment on above: Performed By: #### V ITAD #### [facility] [address] [place] [address] Dr. Benito Schwartz LYMPH # 1.1 103/ul Critically low 1.2-3.8 [facility] Comment on above: Performed By: #### V ITAD #### [facility] [address] [place] [address] Dr. Benito Schwartz Lymphocytes/100 WBC (Bld) 17.9 % Critically low 20.5-60.0 [place] Comment on above: Performed By: #### V ITAD #### [facility] [address] [place] [address] Dr. Benito Schwartz MANUAL DIFF REQ NO Normal [facility] Comment on above: Performed By: #### V ITAD #### [facility] [address] [address] [address] Benito Schwartz MCH (RBC) [Entitic mass] 29.0 pg Normal 25.9-34.0 [place] Comment on above: Performed By: #### V ITAD #### [facility] [address] [place] [address] Dr. Benito Schwartz MCHC (RBC) [Mass/Vol] 31.8 g/dL Normal 29.9-35.2 [place] Comment on above: Performed By: #### V ITAD #### [facility] [address] [place] [address] Dr. Benito Schwartz MCV (RBC) [Entitic vol] 91.4 fL Normal 80.0-94.0 [facility] Comment on above: Performed By: #### V ITAD #### [facility] [address] [address] [address] Benito Schwartz MONO # 0.9 103/ul Critically high 0.3-0.8 [facility] Comment on above: Performed By: #### V ITAD #### [facility] [address] [address] [address] Benito Schwartz Monocytes/100 WBC (Bld) 15.3 % Critically high 1.7-12. 0 [place] Comment on above: Performed By: #### V ITAD #### [facility] [address] [place] [address] Dr. Benito Schwartz NEUT # 3.7 103/ul Normal 1.4-6.5 [place] Comment on above: Performed By: #### V ITAD #### [facility] [address] [place] [address] Dr. Benito Schwartz Neutrophils/100 WBC (Bld) 63.8 % Normal 43.0-75.0 [place] Comment on above: Performed By: #### V ITAD #### [facility] [address] [place] [address] Dr. Benito Schwartz Platelet mean volume (Bld) [Entitic vol] 9.8 fL Normal 9.5-13.5 [place] Comment on above: Performed By: #### V ITAD #### [facility] [address] [place] [address] Dr. Benito Schwartz PLT 212 103/ul Normal 150-450 [facility] Comment on above: Performed By: #### V ITAD #### [facility] [address] [place], [place] [id number] Dr. Benito Schwartz RBC 3.03 106/ul Critically low 4.70-6.10 [facility] Comment on above: Performed By: #### V ITAD #### [facility] [address] [place] [address] Dr. Benito Schwartz WBC 5.9 103/ul Normal 4.0-11.0 [place] Comment on above: Performed By: #### V ITAD #### [facility] [address] [address] [address] Benito Schwartz ECHOCARDIO M/2D COMPLETEon 0 03-07-2022 ECHOCARDIO M/2D COMPLETE Patient: NAS REN Exam Date: 03/07/2022 : 1940 Gender:M Ordering : DR RUPINDER GRIGSBY . Admission #: [id number] Family : DR ARNIE LINDA D.O. Order #: [id number] CLICK HERE TO VIEW EXAM ECHOCARDIOGRAM REPORT [...] Area(A4C): 23.30 cm2 Left Atrium Systolic Volume(A2C): 99552 mm3 Left Atrium Systolic Volume(A4C): 22385 mm3 Mitral Valve MV E to A [...] Rick M.D. on 03/08/2022 at 11:16 Normal [place] OCC BLD IMMUNO SCREENon 02-14 OCCULT BLOOD Negative Normal NEGATIVE [place] Comment on above: Performed By: #### V ITAD #### [facility] [address] [address] [address] Benito Schwartz POINT OF CARE GLUCOSEon 02-14 Glucose [Mass/Vol] 124 mg/dL Critically high 74-106 T [facility] Comment on above: Performed By: #### B 12FOL, FETIBC #### [facility] [address] [place] [address] Dr. Benito Schwartz PROF CHEM 8 (BAS METB)on Anion gap [Moles/Vol] 13.1 mmol/L Normal [facility] Comment on above: Performed By: #### B 12FOL, FETIBC #### [facility] [address] [address] [address] Benito Schwartz Calcium [Mass/Vol] 9.2 mg/dL Normal 8.5-10.1 [facility] Comment on above: Performed By: #### B 12FOL, FETIBC #### [facility] [address] [address] [address] Benito Schwartz Chloride [Moles/Vol] 105 mmol/L Normal 98-107 [place] Comment on above: Performed By: #### B 12FOL, FETIBC #### [facility] [address] [address] [address] Benito Schwartz CO2 [Moles/Vol] 28.6 mmol/L Normal 21.0-32.0 [facility] Comment on above: Performed By: #### B 12FOL, FETIBC #### [facility] [address] [address] [address] Benito Schwartz Creatinine [Mass/Vol] 2.22 mg/dL Critically high 0.70-1.30 [place] Comment on above: Performed By: #### B 12FOL, FETIBC #### [facility] [address] [address] [address] Benito Schwartz EGFR-AF CYMRO 35 mL/min/1.73m2 Critically low >=60 [place] Comment on above: Performed By: #### B 12FOL, FETIBC #### [facility] [address] [address] [address] Benito Schwartz EGFR-NON AF CYMRO 29 mL/min/1.73m2 Critically low >=60 [place] Comment on above: Performed By: #### B 12FOL, FETIBC #### [facility] [address] [address] [address] Benito Schwartz Glucose [Mass/Vol] 110 mg/dL Critically high 74-106 [facility] Comment on above: Performed By: #### B 12FOL, FETIBC #### [facility] [address] [place] [address] Dr. Benito Schwartz Potassium [Moles/Vol] 3.7 mmol/L Normal 3.5-5.1 [place] Comment on above: Performed By: #### B 12FOL, FETIBC #### [facility] [address] [place] [address] Dr. Benito Schwartz Sodium [Moles/Vol] 143 mmol/L Normal 136-145 [facility] Comment on above: Performed By: #### B 12FOL, FETIBC #### [facility] [address] [place] [address] Dr. Benito Schwartz Urea nitrogen [Mass/Vol] 66.0 mg/dL Critically high 7.0-18.0 [place] Comment on above: Performed By: #### B 12FOL, FETIBC #### [facility] [address] [place] [address] Dr. Benito Schwartz Urea nitrogen/Creatinine [Mass ratio] 29.7 mg/mg Normal [place] Comment on above: Performed By: #### B 12FOL, FETIBC #### [facility] [address] [place] [address] Dr. Benito Schwartz CBC AUTO DIFFon 03-06-2022 BASO # 0.0 103/ul Normal 0.0-0.1 [place] Comment on above: Performed By: #### B 12FOL, FETIBC #### [facility] [address] [place] [address] Dr. Benito Schwartz Basophils/100 WBC (Bld) 0.2 % Normal 0.2-2.0 [facility] Comment on above: Performed By: #### B 12FOL, FETIBC #### [facility] [address] [place] [address] Dr. Benito Schwartz EO # 0.1 103/ul Normal 0.0-0.7 [place] Comment on above: Performed By: #### B 12FOL, FETIBC #### [facility] [address] [place] [address] Dr. Benito Schwartz Eosinophils/100 WBC (Bld) 2.4 % Normal 0.9-7.0 [place] Comment on above: Performed By: #### B 12FOL, FETIBC #### [facility] [address] [place] [address] Dr. Benito Schwartz Erythrocyte distribution width (RBC) [Ratio] 13.8 % Normal 11.0-15.0 [place] Comment on above: Performed By: #### B 12FOL, FETIBC #### [facility] [address] [place] [address] Dr. Benito Schwartz Hematocrit (Bld) [Volume fraction] 27.7 % Critically low 42.0-54.0 [place] Comment on above: Performed By: #### B 12FOL, FETIBC #### [facility] [address] [place] [address] Dr. Benito Schwartz Hemoglobin (Bld) [Mass/Vol] 8.7 g/dL Critically low 14.0-18.0 [place] Comment on above: Performed By: #### B 12FOL, FETIBC #### [facility] [address] [place] [address] Dr. Benito Schwartz IG # 0.02 10e3/ul Normal 0.00-0.03 [facility] Comment on above: Performed By: #### B 12FOL, FETIBC #### [facility] [address] [place] [address] Dr. Benito Schwartz IG % 0.3 % Normal 0.0-0.5 [place] Comment on above: Performed By: #### B 12FOL, FETIBC #### [facility] [address] [place] [address] Dr. Benito Schwartz LYMPH # 1.0 103/ul Critically low 1.2-3.8 [facility] Comment on above: Performed By: #### B 12FOL, FETIBC #### [facility] [address] [place] [address] Dr. Benito Schwartz Lymphocytes/100 WBC (Bld) 16.7 % Critically low 20.5-60.0 [place] Comment on above: Performed By: #### B 12FOL, FETIBC #### [facility] [address] [address] [address] Benito Schwartz MANUAL DIFF REQ NO Normal [facility] Comment on above: Performed By: #### B 12FOL, FETIBC #### [facility] [address] [place] [address] Dr. Benito Schwartz MCH (RBC) [Entitic mass] 29.1 pg Normal 25.9-34.0 [place] Comment on above: Performed By: #### B 12FOL, FETIBC #### [facility] [address] [place] [address] Dr. Benito Schwartz MCHC (RBC) [Mass/Vol] 31.4 g/dL Normal 29.9-35.2 [place] Comment on above: Performed By: #### B 12FOL, FETIBC #### [facility] [address] [place] [address] Dr. Benito Schwartz MCV (RBC) [Entitic vol] 92.6 fL Normal 80.0-94.0 [facility] Comment on above: Performed By: #### B 12FOL, FETIBC #### [facility] [address] [place] [address] Dr. Benito Schwartz MONO # 0.9 103/ul Critically high 0.3-0.8 [facility] Comment on above: Performed By: #### B 12FOL, FETIBC #### [facility] [address] [address] [address] Benito Schwartz Monocytes/100 WBC (Bld) 15.3 % Critically high 1.7-12. 0 [place] Comment on above: Performed By: #### B 12FOL, FETIBC #### [facility] [address] [place] [address] Dr. Benito Schwartz NEUT # 3.7 103/ul Normal 1.4-6.5 [place] Comment on above: Performed By: #### B 12FOL, FETIBC #### [facility] [address] [address] [address] Benito Schwartz Neutrophils/100 WBC (Bld) 65.1 % Normal 43.0-75.0 [place] Comment on above: Performed By: #### B 12FOL, FETIBC #### [facility] [address] [address] [address] Benito Schwartz Platelet mean volume (Bld) [Entitic vol] 9.7 fL Normal 9.5-13.5 [place] Comment on above: Performed By: #### B 12FOL, FETIBC #### [facility] [address] [place] [address] Dr. Benito Schwartz PLT 205 103/ul Normal 150-450 [place] Comment on above: Performed By: #### B 12FOL, FETIBC #### [facility] [address] [place] [address] Dr. Benito Schwartz RBC 2.99 106/ul Critically low 4.70-6.10 [facility] Comment on above: Performed By: #### B 12FOL, FETIBC #### [facility] [address] [place] [address] Dr. Benito Schwartz WBC 5.7 103/ul Normal 4.0-11.0 [facility] Comment on above: Performed By: #### B 12FOL, FETIBC #### [facility] [address] [place] [address] HEAD WO CONon [...] by: ANTHONY TRACEY Date: 2022-03-06 12:33 Normal [place] IRON AND TIBCon 03-06-2022 % SATURATION 24.7 % Normal [place] Comment on above: Performed By: #### B 12FOL, FETIBC #### [facility] [address] [place] [address] Dr. Benito Schwartz Iron [Mass/Vol] 55.0 ug/dL Critically low 65.0-175.0 [facility] Comment on above: Performed By: #### B 12FOL, FETIBC #### [facility] [address] [place] [address] Dr. Benito Schwartz TIBC DIRECT 223.0 ug/dL Critically low 250.0-450.0 [facility] Comment on above: Performed By: #### B 12FOL, FETIBC #### [facility] [address] [place] [address] Dr. Benito Schwartz POINT OF CARE GLUCOSEon 02-14 Glucose [Mass/Vol] 145 mg/dL Critically high 74-106 [facility] Comment on above: Performed By: #### V ITAD #### [facility] [address] [place] [address] Dr. Benito Schwartz PROF CHEM 8 (BAS METB)on Anion gap [Moles/Vol] 14.6 mmol/L Normal [facility] Comment on above: Performed By: #### V ITAD #### [facility] [address] [place] [address] Dr. Benito Schwartz Calcium [Mass/Vol] 9.0 mg/dL Normal 8.5-10.1 [facility] Comment on above: Performed By: #### V ITAD #### [facility] [address] [place] [address] Dr. Benito Schwartz Chloride [Moles/Vol] 106 mmol/L Normal 98-107 [place] Comment on above: Performed By: #### V ITAD #### [facility] [address] [address] [address] Benito Schwartz CO2 [Moles/Vol] 26.3 mmol/L Normal 21.0-32.0 [facility] Comment on above: Performed By: #### V ITAD #### [facility] [address] [address] [address] Benito Schwartz Creatinine [Mass/Vol] 2.40 mg/dL Critically high 0.70-1.30 [place] Comment on above: Performed By: #### V ITAD #### [facility] [address] [address] [address] Benito Schwartz EGFR-AF CYMRO 32 mL/min/1.73m2 Critically low >=60 [place] Comment on above: Performed By: #### V ITAD #### [facility] [address] [address] [address] Benito Schwartz EGFR-NON AF CYMRO 26 mL/min/1.73m2 Critically low >=60 [place] Comment on above: Performed By: #### V ITAD #### [facility] [address] [place] [address] Dr. Benito Schwartz Glucose [Mass/Vol] 108 mg/dL Critically high 74-106 [facility] Comment on above: Performed By: #### V ITAD #### [facility] [address] [address] [address] Benito Schwartz Potassium [Moles/Vol] 3.9 mmol/L Normal 3.5-5.1 [place] Comment on above: Performed By: #### V ITAD #### [facility] [address] [address] [address] Benito Schwartz Sodium [Moles/Vol] 143 mmol/L Normal 136-145 [facility] Comment on above: Performed By: #### V ITAD #### [facility] [address] [address] [address] Benito Schwartz Urea nitrogen [Mass/Vol] 72.0 mg/dL Critically high 7.0-18.0 [place] Comment on above: Performed By: #### V ITAD #### [facility] [address] [place] [address] Dr. Benito Schwartz Urea nitrogen/Creatinine [Mass ratio] 30.0 mg/mg Normal [facility] Comment on above: Performed By: #### V ITAD #### [facility] [address] [place] [address] Dr. Benito Schwartz VIT B12 AND FOLATEon Cobalamin (Vitamin B12) [Mass/Vol] 432.0 pg/mL Normal 193.0-986.0 [place] Comment on above: Performed By: #### B 12FOL, FETIBC #### [facility] [address] [place] [address] Dr. Benito Schwartz FOLATE 21.60 ng/mL Normal 8.60-58.90 [place] Comment on above: Performed By: #### B 12FOL, FETIBC #### [facility] [address] [place] [address] Dr. Benito Schwartz BNPon 03-05-2022 Natriuretic peptide B (Bld) [Mass/Vol] 6910.0 pg/mL Critically high <=1,800.0 [place] Comment on above: Result Comment: Test Repeated. Critical Value Verified Performed By: #### B 12FOL, FETIBC #### [facility] [address] [place] [address] Dr. Benito Schwartz CBC AUTO DIFFon 03-05-2022 BASO # 0.0 103/ul Normal 0.0-0.1 [place] Comment on above: Performed By: #### F T4, PSASC #### [facility] [address] [place] [address] Dr. Benito Schwartz Basophils/100 WBC (Bld) 0.3 % Normal 0.2-2.0 [facility] Comment on above: Performed By: #### F T4, PSASC #### [facility] [facility] [address] [place] [address] Dr. Benito Schwartz EO # 0.2 103/ul Normal 0.0-0.7 [facility] Comment on above: Performed By: #### F T4, PSASC #### [facility] [address] [place] [address] Dr. Benito Schwartz Eosinophils/100 WBC (Bld) 2.7 % Normal 0.9-7.0 [facility] Comment on above: Performed By: #### F T4, PSASC #### [facility] [address] [place] [address] Dr. Benito Schwartz Erythrocyte distribution width (RBC) [Ratio] 13.7 % Normal 11.0-15.0 [facility] Comment on above: Performed By: #### F T4, PSASC #### [facility] [address] [place] [address] Dr. Benito Schwartz Hematocrit (Bld) [Volume fraction] 27.9 % Critically low 42.0-54.0 [place] Comment on above: Performed By: #### F T4, PSASC #### [facility] [address] [place] [address] Dr. Benito Schwartz Hemoglobin (Bld) [Mass/Vol] 8.9 g/dL Critically low 14.0-18.0 [place] Comment on above: Performed By: #### F T4, PSASC #### [facility] [address] [place] [address] Dr. Benito Schwartz IG # 0.01 10e3/ul Normal 0.00-0.03 [facility] Comment on above: Performed By: #### F T4, PSASC #### [facility] [address] [place] [address] Dr. Benito Schwartz IG % 0.2 % Normal 0.0-0.5 [facility] Comment on above: Performed By: #### F T4, PSASC #### [facility] [address] [place] [address] Dr. Benito Schwartz LYMPH # 1.3 103/ul Normal 1.2-3.8 [facility] Comment on above: Performed By: #### F T4, PSASC #### [facility] [address] [place] [address] Dr. Benito Schwartz Lymphocytes/100 WBC (Bld) 21.5 % Normal 20.5-60.0 [place] Comment on above: Performed By: #### F T4, PSASC #### [facility] [address] [place] [address] Dr. Benito Schwartz MANUAL DIFF REQ NO Normal [facility] Comment on above: Performed By: #### F T4, PSASC #### [facility] [address] [place] [address] Dr. Benito Schwartz MCH (RBC) [Entitic mass] 29.5 pg Normal 25.9-34.0 [place] Comment on above: Performed By: #### F T4, PSASC #### [facility] [address] [place] [address] Dr. Benito Schwartz MCHC (RBC) [Mass/Vol] 31.9 g/dL Normal 29.9-35.2 [place] Comment on above: Performed By: #### F T4, PSASC #### [facility] [address] [place] [address] Dr. Benito Schwartz MCV (RBC) [Entitic vol] 92.4 fL Normal 80.0-94.0 [facility] Comment on above: Performed By: #### F T4, PSASC #### [facility] [address] [place] [address] Dr. Benito Schwartz MONO # 1.0 103/ul Critically high 0.3-0.8 [facility] Comment on above: Performed By: #### F T4, PSASC #### [facility] [address] [place] [address] Dr. Benito Schwartz Monocytes/100 WBC (Bld) 16.3 % Critically high 1.7-12. 0 [place] Comment on above: Performed By: #### F T4, PSASC #### [facility] [address] [place] [address] Dr. Benito Schwartz NEUT # 3.5 103/ul Normal 1.4-6.5 [place] Comment on above: Performed By: #### F T4, PSASC #### [facility] [address] [place] [address] Dr. Benito Schwartz Neutrophils/100 WBC (Bld) 59.0 % Normal 43.0-75.0 [place] Comment on above: Performed By: #### F T4, PSASC #### [facility] [address] [place] [address] Dr. Benito Schwartz Platelet mean volume (Bld) [Entitic vol] 9.5 fL Normal 9.5-13.5 [place] Comment on above: Performed By: #### F T4, PSASC #### [facility] [address] [place] [address] Dr. Benito Schwartz PLT 213 103/ul Normal 150-450 [place] Comment on above: Performed By: #### F T4, PSASC #### [facility] [address] [place] [address] Dr. Benito Schwartz RBC 3.02 106/ul Critically low 4.70-6.10 [facility] Comment on above: Performed By: #### F T4, PSASC #### [facility] [address] [place] [address] Dr. Benito Schwartz WBC 5.9 103/ul Normal 4.0-11.0 [place] Comment on above: Performed By: #### F T4, PSASC #### [facility] [address] [place] [address] Dr. Benito Schwartz CULTURE BLOODon 03-05-2022 Microscopic examination of blood, culture Culture Observations: NO GROWTH AT 5 DAYS. Normal [facility] Comment on above: Performed By: #### V ITAD #### [facility] [address] [place] [address] Dr. Benito Schwartz [facility]14 SARS-CoV-2 (COVID-19) RNA ZITA+probe Ql (Unsp spec) Not detected Normal NOT DETECTED [facility] Comment on above: Result Comment: This test is not yet approved or cleared by the [place] FDA. When there are no FDA-approved or cleared tests available, and other criteria are met, FDA can make tests available under an emergency access mechanism called an Emergency Use Authorization (EUA). The EUA for this test is supported by the Service Dog Trainer of Health and Human Service's (HHS's) declaration [...] C BC #### [facility] [address] [place] [address] Dr. Benito Schwartz FREE T4on 03-05-2022 Free T4 [Mass/Vol] ng/dL Critically high 0.76-1.46 [facility] Comment on above: Performed By: #### C BC #### [facility] [address] [place] [address] Dr. Benito Schwartz LACTATE/LACTIC ACIDon 2021 Lactate [Moles/Vol] 1.2 mmol/L Normal 0.4-1.9 [facility] Comment on above: Performed By: #### F T4 #### [facility] [address] [place] [address] Dr. Benito Schwartz PROF 14(COMP METB)on 022 Albumin [Mass/Vol] 2.9 g/dL Critically low 3.4-5.0 [facility] Comment on above: Performed By: #### F T4, PSASC #### [facility] [address] [place] [address] Dr. Benito Schwartz Albumin/Globulin [Mass ratio] 0.8 {ratio} Normal [place] Comment on above: Performed By: #### F T4, PSASC #### [facility] [address] [address] [address] Benito Schwartz ALP [Catalytic activity/Vol] 107 U/L Normal 46-116 [place] Comment on above: Performed By: #### F T4, PSASC #### [facility] [address] [place] [address] Dr. Benito Schwartz ALT [Catalytic activity/Vol] 25 U/L Normal 16-63 [place] Comment on above: Performed By: #### F T4, PSASC #### [facility] [address] [place] [address] Dr. Benito Schwartz Anion gap [Moles/Vol] 14.2 mmol/L Normal [facility] Comment on above: Performed By: #### F T4, PSASC #### [facility] [address] [place] [address] Dr. Benito Schwartz AST [Catalytic activity/Vol] 17 U/L Normal 15-37 [place] Comment on above: Performed By: #### F T4, PSASC #### [facility] [address] [place] [address] Dr. Benito Schwartz Bilirubin [Mass/Vol] 0.5 mg/dL Normal 0.2-1.0 [place] Comment on above: Performed By: #### F T4, PSASC #### [facility] [address] [place] [address] Dr. Benito Schwartz Calcium [Mass/Vol] 9.1 mg/dL Normal 8.5-10.1 [facility] Comment on above: Performed By: #### F T4, PSASC #### [facility] [address] [place] [address] Dr. Benito Schwartz Chloride [Moles/Vol] 104 mmol/L Normal 98-107 [place] Comment on above: Performed By: #### F T4, PSASC #### [facility] [address] [place] [address] Dr. Benito Schwartz CO2 [Moles/Vol] 27.0 mmol/L Normal 21.0-32.0 [facility] Comment on above: Performed By: #### F T4, PSASC #### [facility] [address] [address] [address] Benito Schwartz Creatinine [Mass/Vol] 2.97 mg/dL Critically high 0.70-1.30 [place] Comment on above: Performed By: #### F T4, PSASC #### [facility] [address] [address] [address] Benito Schwartz EGFR-AF CYMRO 25 mL/min/1.73m2 Critically low >=60 [place] Comment on above: Performed By: #### F T4, PSASC #### [facility] [address] [address] [address] Benito Schwartz EGFR-NON AF CYMRO 21 mL/min/1.73m2 Critically low >=60 [place] Comment on above: Performed By: #### F T4, PSASC #### [facility] [address] [address] [address] Benito Schwartz Globulin (S) [Mass/Vol] 3.6 g/dL Normal [facility] Comment on above: Performed By: #### F T4, PSASC #### [facility] [address] [address] [address] Benito Schwartz Glucose [Mass/Vol] 162 mg/dL Critically high 74-106 [facility] Comment on above: Performed By: #### F T4, PSASC #### [facility] [address] [address] [address] Benito Schwartz Potassium [Moles/Vol] 4.2 mmol/L Normal 3.5-5.1 [place] Comment on above: Performed By: #### F T4, PSASC #### [facility] [address] [address] [address] Benito Schwartz Protein [Mass/Vol] 6.5 g/dL Normal 6.4-8.2 [facility] Comment on above: Performed By: #### F T4, PSASC #### [facility] [address] [address] [address] Benito Schwartz Sodium [Moles/Vol] 141 mmol/L Normal 136-145 [facility] Comment on above: Performed By: #### F T4, PSASC #### [facility] [address] [address] [address] Benito Schwartz Urea nitrogen [Mass/Vol] 74.0 mg/dL Critically high 7.0-18.0 [place] Comment on above: Performed By: #### F T4, PSASC #### [facility] [address] [place] [address] Dr. Benito Schwartz Urea nitrogen/Creatinine [Mass ratio] 24.9 mg/mg Normal [place] Comment on above: Performed By: #### F T4, PSASC #### [facility] [address] [place] [address] Dr. Benito Schwartz TROPONIN, HIGH SENSITIVITYon 03-05-2022 HSTROP 39.6 pg/mL Normal 4.0-76.1 [place] Comment on above: Result Comment: CUT- OFF POINTS HAVE BEEN ESTABLISHED BASED ON THE FOURTH UNIVERSAL DEFINITIONS OF MYOCARDIAL INFARCTION. THE UPPER REFERENCE LIMIT (URL) OF TROPONIN, DEFINED THE 99TH PERCENTILE OF cTnI DISTRIBUTION IN A REFERENCE POPULATION, HAS BEEN CONFIRMED THE DECISION THRESHOLD FOR [place] DIAGNOSIS. Performed By: #### F T4, PSASC #### [facility] [address] [place] [address] Dr. Benito Schwartz TSHon 03-05-2022 TSH Qn m[IU]/L Critically low 0.358-3.740 [facility] Comment on above: Performed By: #### F T4 #### [facility] [address] [place] [address] Dr. Benito Schwartz TSH RANGE SEE BELOW Normal [place] Comment on above: Result Comment: <0.3 4 UIU/ml HYPERTHYROID 0.34-5.60 UIU/ml EUTHYROID >5.60 UIU/ml HYPOTHYROID Performed By: #### F T4 #### [facility] [address] [place] [address] Dr. Benito Schwartz US THYROIDon 03-04-2022 US [...] peptide B (Bld) [Mass/Vol] 251.0 pg/mL 5-100 [facility] TSH DL <= 0.005 mIU/L QnOrde red By: nErrique Mckeon on 02-22-2022 TSH Qn m[IU]/L 0.45-5.33 [facility] Coding Summaryon 07-08-2021 Coding Summary HTMLBase 64 XmfvlobuYGy8aHa+PGhlY WQ+EN9PJRDeM22qxTLrvC 7XW8hNRM2FKZPSHBJCJR4 UKH9erNW3NGzbN6XmmwJi BwnubZCyZP72JUu5TGC9y ZhuHJrmsP5clJAuT7x6Wt GbLF06bL64DMfeHCXkGuU 3LjZpbjsgbWFy I1xkUrGivHRlJyi+PHRhY mxlIHdpZHRoPScxMDAlJy RmsZbcSQ2yGt6cVPYzDQW vbGxhcHNlOiBj c3wcLMRqSNkhQH0qzPzbH 6NbxZI7KROzx7o7Zz17mZ I+ZCUwJWX5xApgHMkkw74 1YoIis0ehGCJ1 bNIfEZgkLHV1E81tb9Q4U GSlPGRwHPP3yNC6kF3xeR fuzqnjG4OrrLAoRqY4HVK 4rZTmdO8mtBdi rmzrhL3kWie+B16CGV2XB IDEJN2RIvo7V1YfBevamM I+NI17KSTtXD81pGOpqRB vg8vreOm0MaFa VIOlLEE2kGaoPUynj1FrQ RIjH81ofMHke2P2OXVunB qwlXAoPtXxzPZ3oK3lUDm lmabui5obdiah Gvbbq9auza85vR80Y30pW BllDKMnLNB4FNSyGTOdwV vzfb5qwC7xDk1+NUepp0v po6cmoLh0HrGk AWGcjvDkeKiiFYQ6e3EvI x35K5LcrCoiv6KgExd3hx 22zJBhq5E9gIR1TQwuKOU btF5tCZcyOyS8 ZARpJgWnaX84sSWwQApkP v0paRpcgYkiVR3pUSAxwd tgGWJzkQ1fAXUqcEMlmWk dIY0hNZGpgkkf d549OpGsKAA8GPHxkMBjE 9VkiI8hBfTeRTKtMVHvP2 QhiKQxJZfxZ018ABxtRiX 4TIXnymSmK9Ia BHXzuZtgEjD8g7L9Cy2Uq 3OtjsufZAP3URcsZIJ3Qv QvNsDsLcZ7I3BoDvb7OCO dfNkeIU4rD9Lr KAAgieiwgxomoSR5FETsE HNoeP46hYPuROuuOe6oe8 D1i895HUKbHZPuoH24Sd6 udDogMTBwdCBU dK1uakihu0hukcmiRhEbE RTnNBq2NDf8RBZrkAntZn RuYFW1EcJ7DLU6bTIlzI4 kxFeeiovdrV2f Oyc+Y71naK5mZFK7EYJ0s uvhVLUsutXrOD80EG18Z3 RyPjwvdGFibGU+PGRpdiB stUmoHR2sXtNq a1fhn5AjXJqiL3RqSJVjL OuvGsy8MQZlJDP4gDV3pT 7yKWOwVYpxo2Y9qFB6F2G pdfFszc1jr6hz JSDaSGcuR85juHAge8A2Y XNtgWR3OKFjsAcqOjWdeP 93Oyc+AJYrfAqhf9AlCcc wx0jqq4pwtRv4 MaSkYESpwrAxiJvcKCK8k 0QqYy82P68qJRahSLCzXH JnXQFkINNepWoabp3mqZ5 wIi8+PGNvbCB3 wKX2kA6eROTcUbS1MQwaI 423BjUgfYYxAljbu5hpv0 iyhAg7DvZjYGQzbrNocCh uLDG6n9NyGl41 X79aXGwpFORzDTPxJHUxQ TAqlXhify0gqV3cQr2+PC 5hc8ozre91mD59pFS+PHR kIWI4uEihUVxw XTOnfC9cHHbiKhT0SHTaT yQwmK87xDStONexXr8oaJ gkmSwvVP7wYCYxowmad05 3TbIuq7kdWXGl bUJlVBluAVZ2L70sl5Q7M MRjXONfUMU5jOG7vF5krT lnbjogbGVmdDsgdmVydGl tPQosTYrmQ766 IHRvcDsnPlBhdGllbnQgT yXxWOr0W3JaYso0ZPSflJ rhRO9lkRHgFEbxCo0ygZj uyFqfJI5oLAVp sgnky501OkJec9imVWPlw AOtVZxaKCJ2T06gk5G6WY ChUPYoMBD8rNQ0pC0ljNu nbjogbGVmdDsg etYlmOjaFKdvARojF876R HRvcDsnPkJpcnRoIERhdG E9SH70WF87rFFmn9J0aOB 7U6UrZGDkuqtm arcsaXO6KCHhTFKtsL39M u3ifPwnIs9fAOTdPCF7CC VqnFYhU4XbhN6cTvBuXDC uUKAwJ4CyuCRx FEbfK335XLloHmK0KSBeh qVuF3AgEPUohPqmLcP9a1 K2Sr2AW4B3OO19YC57kVM fa6G2mTJ1J5Ir LNWpwsxdifuucIW5MOMyK QFofY78Zr5kyEfpWl7oUO PwCEK6TNJgnDPwS5QtkN9 yOiAjMDAwMDAw L7PvyLCqYWhsN216ZGrnP bF8ZKKdoaGeD8CnBOSczV qpJrG3m9P9Yg9MODw9DY8 3QK56hEVtb5O5 aLS1K3ToJJOwkurogtcqr MJ3IGJnTTFugO85Kp9gfM fdTb0pCRXyKVR3DIZpiUJ rY7KcrH1aNrNm RJLxHVLiB7MakZIzFBmcG 394MIkzDaH8OCDpfrLiG4 BkKJTysEgqHqT9z3Z5Oo2 GVRXbDY72TGJ9 cUY9JT61DP49B2VpCqjsc GFibGU+PHRhYmxlIHdpZH RoPScxMDAlJyBzdHlsZT0 tKq0rZNRfVLQq bHvttACbOiFpg1hiXHDkQ HcfPI0ktAmzB2GfuIQ7BQ Lvt3f5Gp24E00zF2YvwRC +JVZytUV5jQH4 pX7pGiOjJiV7AIjzR318P oEavNSjAegva5lih7tupA c7CiX6ZIKmcvKhjXdtZUV 3e0SmOl45I03g IHdpZHRoPSIxNSUiIHZhb Grshg4brA8nKd0+PGNvbC U1bES3mS7dDcGaAwT0JMm aI031FeNakIBp Rjbfx1hag7otrOj9DfKlC AZotpUojRhrBFM4d0EsSn 26D0PhjSkwm1EcBkn0gz5 9nDCmz4A0hUX9 L4KfUDQtmxcjuPVmsGnwO G4nTWBfzxeqIHUjnU6mZA ArG8x4EsIgTvG2KYppW7H ybrL3LDDwuXDh AXzeQDM9N61zy3X2RYHjV CRxDQE3bIH6oJ3etLpvik ogbGVmdDsgdmVydGljYWw dREsfG052FEPb mVwfSZSynT2hFPMvhJVhg HjhNE7pCKQcmljeYwWEJJ MKHffuFdWZIrd9B9WhIka 6EFImzVxvVJ9o cDDsTUhuVg1zoYtbvHlyS F9qMFExbewvEHJkoK6gDV XygGTejZrwQO4mSCQirvy vp922ObOoDVV1 IEMifWJwT6TawO6dSsGbP OUnXNHcU1CorGScKYzkT7 04DLrzWlM1SAQdepOkU3G sLWFsaWduOiB0 w0X0Gk4rVw3qMZ6aSBXxI C51JV56wOHfl8K2sVM1Q0 RqFAGewezbnadciBF2UVH rEMWzuC28yIAl SHdzQd2ep2L1m092NXJgA BXzbX68Og3paBavNSVmeI IYoM8wfbctr7eazqiqKrA kUCWsBJo3TNt6 RAFgaDexAfReDNF1YuL5H MT2dDDyyN5tbBmdgsemhX 9wOyc+DrieKVTycyE3H1B lXng6AWJbuTzc DE0bcOPsFWbzEo7fyYnrn AfuJT0qMKEhedacEFGraW 9eIIQqnWCovCajIZ0iUGR tapprl658GdRt VCH5NJNxmWZuC9XtsC6iX oYxSJBqUJTwL5VxoONlQM zzF252AFzvFmW9FFVggmR uS2NzLUFyeIxg HqC8i5M3De9QFClRCZ97G I17lVTit3V8cOU5J9KyNA KwemgkgukveKX3GWKuEDJ iaF51yOPjXDad Dk9td9W1f476OTTqVMDsk M20Ae6ngPogUWSbvCPIbE 9enwzdi0gmuruuTuCiYPB iTOo9JOe9XHXl uDhbOrKbLTZ9HmQ2ZNA5e CYeqR4nxExcahzubP3kTj c+L8I0G5CpMhcbwNI+PC9 4VXTvAW90pRLx eXCzy1rbsMa8YdUkTEEwR VA6lFooCYowi6QdDTThB8 0veXBvw7U6ETLbpNegtOF sFiSxzLG6qQ3p WKmzdbatf5arpzvkJhrla 8rafj82bV92E85zTXcoDF RoPSIzMCUiIHZhbGlnbj0 pyF5kIf0+PGNv oWD3pOQ9xZ3cXfJcAbR0R LaiI802XaQptJTdLctge3 ssh9ybrTs0YvSgRNTrhmB wwRrsXBU8x9Nu Xd41M78nDIsgBIMmROBpH BKwZMTajPzawg6blH2tIv 8+BI9kg9tyaq03rV82tLH +XLBgULT2qCmi ELbuLCCzxU4qSXshAlQ5C PHaYkIarT37kTQnVNtcJx 1bpWamaYjpDV9qTKQyiyt oe304GaAgg9tp PKAssABvKVmnZQQ0J08bk 9X7EQIoXELoORX6sSC5hG 1hbGlnbjogbGVmdDsgdmV ydGljYWwtYWxp K436SDFzmPktWoNgjAXcG 1iwhfAXUH3tStzvhYZ+PH BgGXE9aWwtGBkhPONzlR7 iDULeX3v9NwGn EnS1EBagO1OlsbL2RCWxj ADjRTEgtBADxD2lxpmno5 mgmliqMcVrQTIpVTm6DXm 0LWFsaWduOiBs XNN0BnL1LMZ8eBPjsW7bx VueylmnlS1rAwr+RklOOj wvdGQ+HYKkHBB5xBguMMe fHXAsaV7jKFNd K6f4TsQwXnU6APfpV3Xng oG8NOAmgCXeGOElqFRPrB 6bjdecd8scsjjiXzQcBYH fQQv8ZSk1LJPk dPjwAyDzCDI6UpM3KJI1n NLcsJ3otUtmgebnxO9vTn c+TVJOOjwvdGQ+PHRkIHN 0eWxlPSdwYWRk uC7uTALqE4c7ItHlYvY0W XssU7LedaJ0IQYbmUFyPV QwwEWMmL0sxbbda8wmtcq gIzAwMDAwMDt0 GEo1DKVggJacPrUkMBO6L fB3GCN3fQJdiL2lyZcyiv bkqX2oSjj+VQE3RQX7WT2 2WT50I0SzOivi dGFibGU+PHRhYmxlIHdpZ HRoPScxMDAlJyBzdHlsZT 7gKw0yVIIaITVlgTsgtLS nAkYiz4uiTOWg ZTs (more content not included)... [facility] Provider Orderson 07-05-2021 Provider Orders [id number] [facility] Creatinine Lv[place] 07-02-2021 eGFR Non AA 29 mL/min/1.73m2 Invalid Interpretation Code [facility] Comment on above: Performed By: #### [id number] #### [facility] (DEFAULT) [address] [place] [address] eGFR AA 35 mL/min/1.73m2 Invalid Interpretation Code [facility] Comment on above: Result Comment: [employer] hilda Kidney disease could be indicated at eGFRs of less than 60 ml/min/1.73m2. Kidney Failure is indicated at less than 15 ml/min/1.73m2 Performed By: #### [id number] #### [facility] (DEFAULT) [address] [place] [address] Creatinine [Mass/Vol] 2.19 mg/dL High 0.90-1.30 [facility] Comment on above: Performed By: #### 2 [id number] #### [facility] (DEFAULT) [address] [place] [address] Vital Signs Date Time Vital Sign Value Performing Clinician Facility 09-01-2023 13:51-0500 Body height 180.34 cm DO Arnie Ball Work Phone: [facility] 09-01-2023 13:51-0500 Body temperature 97.7 [degF] DO Arnie Ball Work Phone: [facility] 09-01-2023 13:51-0500 Body weight 98.02 kg DO Arnie Ball Work Phone: [facility] 09-01-2023 13:51-0500 Diastolic blood pressure 79 mm[Hg] DO Arnie Ball Work Phone: [facility] 09-01-2023 13:51-0500 Heart rate 70 /min DO Arnie Ball Work Phone: [facility] 09-01-2023 13:51-0500 Respiratory rate 20 /min DO Arnie Ball Work Phone: [facility] 09-01-2023 13:51-0500 SaO2% (BldA) [Mass fraction] 96 % DO Arnie Ball Work Phone: [facility] 09-01-2023 13:51-0500 Systolic blood pressure 147 mm[Hg] DO Arnie Ball Work Phone: [facility] 08-22-2023 10:00-0500 Body height [employer] Other [facility] Other 08-22-2023 10:00-0500 Body mass index (BMI) [Ratio] 29.35 kg/m2 [facility] Other [facility] Other 08-22-2023 10:00-0500 Body weight 98.16 kg Arnie Ball Other [facility] Other 08-22-2023 10:00-0500 Diastolic blood pressure 74 mm[Hg] Arnie Ball Other [facility] Other 08-22-2023 10:00-0500 Respiratory rate 12 /min Arnie Ball Other [facility] Other 08-22-2023 10:00-0500 Systolic blood pressure 135 mm[Hg] Arnie Ball Other [facility] Other 04-20-2023 09:30-0400 Body height Arnie Ball Other [facility] Other 04-20-2023 09:30-0400 Body mass index (BMI) [Ratio] 29.62 kg/m2 Arnie Ball Other [facility] Other 04-20-2023 09:30-0400 Body weight 99.07 kg Arnie Ball Other [facility] Other 04-20-2023 09:30-0400 Diastolic blood pressure 64 mm[Hg] Arnie Ball Other [facility] Other 04-20-2023 09:30-0400 Respiratory rate 12 /min Arnie Ball Other [facility] Other 04-20-2023 09:30-0400 Systolic blood pressure 113 mm[Hg] Arnie Ball Other [facility] Other 12-15-2022 10:00-0500 Body height Arnie Ball Other [facility] Other 12-15-2022 10:00-0500 Body mass index (BMI) [Ratio] 29.81 kg/m2 Arnie Ball Other [employer] Other 12-15-2022 10:00-0500 Body weight 99.7 kg Arnie Ball Other [employer] [employer] [facility] [employer] Other 12-15-2022 10:00-0500 Diastolic blood pressure 70 mm[Hg] Arnie Ball Other [facility] [employer] Other 12-15-2022 10:00-0500 Respiratory rate 12 /min Arnie Ball Other [facility] [employer] Other 12-15-2022 10:00-0500 Systolic blood pressure 122 mm[Hg] Arnie Ball Other [facility] [employer] Other 09-02-2022 14:11-0500 Body weight 98.9 kg DO Arnie Ball Work Phone: [facility] 09-02-2022 14:11-0500 Diastolic blood pressure 72 mm[Hg] DO Arnie Ball Work Phone: [facility] 09-02-2022 14:11-0500 Heart rate 60 /min DO Arnie Ball Work Phone: [facility] 09-02-2022 14:11-0500 Respiratory rate 20 /min DO Arnie Ball Work Phone: [facility] 09-02-2022 14:11-0500 SaO2% (BldA) [Mass fraction] 96 % DO Arnie Ball Work Phone: [facility] 09-02-2022 14:11-0500 Systolic blood pressure 153 mm[Hg] DO Arnie Ball Work Phone: [facility] 07-21-2022 10:13-0400 Diastolic blood pressure 64 mm[Hg] DO Arnie Ball Work Phone: [facility] 07-21-2022 10:130400 Heart rate 60 /min DO Arnie Ball Work Phone: [facility] 07-21-2022 10:130400 Respiratory rate 16 /min DO Arnie Ball Work Phone: [facility] 07-21-2022 10:13-0400 SaO2% (BldA) [Mass fraction] 95 % DO Arnie Ball Work Phone: [facility] 07-21-2022 10:13-0400 Systolic blood pressure 135 mm[Hg] DO Arnie Ball Work Phone: [facility] 07-21-2022 08:10-0400 Body height 180.34 cm DO Arnie Ball Work Phone: [facility] 07-21-2022 08:10-0400 Body temperature 98.2 [degF] DO Arnie Ball Work Phone: [facility] 07-21-2022 08:10-0400 Body weight 90.71 kg DO Arnie Ball Work Phone: [facility] 06-17-2022 10:25-0400 Body temperature 98.2 [degF] DO Arnie Ball Work Phone: [facility] 06-17-2022 10:25-0400 Diastolic blood pressure 58 mm[Hg] DO Arnie Ball Work Phone: [facility] 06-17-2022 10:25-0400 Heart rate 62 /min DO Arnie Ball Work Phone: [facility] 06-17-2022 10:25-0400 Respiratory rate 18 /min DO Arnie Ball Work Phone: [facility] 06-17-2022 10:25-0400 SaO2% (BldA) [Mass fraction] 98 % DO Arnie Ball Work Phone: [facility] 06-17-2022 10:25-0400 Systolic blood pressure 124 mm[Hg] DO Arnie Ball Work Phone: [facility] 06-03-2022 09:55-0401 Body height 180.34 cm DO Arnie Ball Work Phone: [facility] 06-03-2022 [id number] Body weight 92.85 kg DO Arnie Ball Work Phone: [facility] Encounters Encounter Date Encounter Type Care Provider Facility Start: 12-18-2023 End: 12-18-2023 ambulatory Arnie Ball Other [facility] Other Start: 12-18-2023 Telephone encounter Arnie Ball [facility] Start: 09-29-2023 End: 09-29-2023 ambulatory Arnie Ball Other [facility] Other Start: 09-29-2023 Telephone encounter Arnie Linda [facility] Start: 09-22-2023 End: 09-22-2023 ambulatory [facility] Start: 09-04-2023 End: 09-04-2023 ambulatory [facility] Start: 09-01-2023 ambulatory [facility] II Facility:[facility] Start: 09-01-2023 End: 09-01-2023 ambulatory DO Arnie Ball Work Phone: [facility] Work Phone: Start: 09-01-2023 End: 09-01-2023 Registered Recurring DO Arnie Ball Work Phone: [facility] Work Phone: Start: 08-27-2023 End: 08-27-2023 ambulatory Arnie Ball Other [facility] Other Start: 08-27-2023 Telephone encounter Arnie Ball [facility] Start: 08-22-2023 End: 08-22-2023 ambulatory Arnie Ball Other [facility] Other Start: 08-22-2023 Office outpatient vi sit 25 minutes Arnie Ball [facility] Start: 07-03-2023 End: 07-03-2023 ambulatory Arnie Ball Other [facility] Other Start: 07-03-2023 Telephone encounter Arnie Ball [facility] Start: 07-01-2023 End: 07-01-2023 ambulatory Arnie Ball Other [facility] Other Start: 07-01-2023 Telephone encounter Arnie Ball [facility] Start: 06-30-2023 End: 06-30-2023 ambulatory [facility] Start: 06-23-2023 End: 06-23-2023 [facility] Start: 06-22-2023 End: 06-22-2023 ambulatory Arnie Ball Other [facility] Other Start: 06-22-2023 Telephone encounter Arnie Ball [facility] Start: 06-12-2023 Telephone encounter Arnie Ball [facility] Start: 06-12-2023 End: 06-12-[address] [facility] [employer] Other Start: 04-26-2023 End: 04-26-2023 ambulatory Arnie Ball Other [facility] Other Start: 04-26-2023 Telephone encounter Arnie Ball [facility] Start: 04-25-2023 ambulatory [facility] Start: 04-20-2023 End: 04-20-2023 ambulatory Arnie Ball Other [facility] Other Start: 04-20-2023 Office outpatient vi sit 25 minutes Arnie Ball [facility] Start: 04-04-2023 End: 04-04-2023 ambulatory [facility] Start: 03-14-2023 End: 03-14-2023 ambulatory Arnie Ball Other [facility] Other Start: 03-14-2023 Telephone encounter Arnie Linda [facility] Start: 02-28-2023 End: 03-01-[address] DOCTOR EDWARDS Facility:H1 Start: 02-15-2023 Telephone encounter Arnie CARRASCO [facility] Start: 02-15-2023 End: 02-16-[address] DOCTOR EDWARDS [facility] Other Start: 02-14-2023 End: 02-14-2023 ambulatory Arnie Linda Other [facility] Other Start: 02-14-2023 Telephone encounter Arnie CARRASCO [facility] Start: 02-13-2023 End: 02-13-2023 [facility] Start: 01-31-2023 End: 01-31-2023 ambulatory MARIUSZ DEGROOT [facility] Start: 01-11-2023 End: 01-11-2023 ambulatory Arnie Linda Other [facility] Other Start: 01-11-2023 Office outpatient vi sit 15 minutes Arnie Linda [facility] Start: 01-02-2023 End: 01-03-2023 ambulatory AVERY SYED MD Facility:[facility]1 Start: 12-22-2022 ambulatory DAWN NOLASCO [facility] Start: 12-15-2022 End: 12-15-2022 ambulatory Arnie Linda Other [facility] Other Start: 12-15-2022 Patient encounter procedure Arnie Linda [facility] Start: 11-16-2022 End: 11-17-[address] ARNIE LINDA Facility:[facility] Start: 11-14-2022 End: 11-14-2022 ambulatory Arnie Linda Other [facility] Other Start: 11-14-2022 Telephone encounter Arnie CARRASCO [facility] Start: 10-03-2022 End: 10-04-[address] ARNIE LINDA Facility:[facility] Start: 09-22-2022 End: 09-23-[address] DOCTOR EDWARDS Facility:[facility] Start: 09-09-2022 End: 09-10-[address] DOCTOR EDWARDS Facility:[facility]1 Start: 09-02-2022 End: 09-02-2022 ambulatory DO Arnie Linda Work Phone: [facility] Work Phone: Start: 09-02-2022 End: 09-02-2022 Registered Recurring DO Arnie Maddi Work Phone: [facility] Start: 08-30-2022 End: 08-31-[address] ARNIE LINDA Facility:[facility]1 Start: 07-21-2022 End: 07-21-2022 Admission to same day surgery center DO Arnie Maddi Work Phone: [facility] Start: 07-21-2022 End: 07-21-2022 ambulatory DO Arnie Maddi Work Phone: [facility] Work Phone: Start: 07-20-2022 End: 07-21-[address] ARNIE LINDA Facility:[facility]1 Start: 07-19-2022 End: 07-19-2022 ambulatory DO Arnie Maddi Work Phone: [facility] Work Phone: Start: 07-19-2022 End: 07-19-2022 Patient encounter procedure DO Arnie Maddi Work Phone: [facility] Start: 07-07-[address] DAWN Rodgers ility:[facility]1 Start: 06-21-2022 Adult health examination Arnie Linda Other [facility] Other Start: 06-17-2022 Registered Recurring DO Jeremi in Ball Work Phone: [facility] Start: 06-03-2022 End: 06-03-2022 Registered Recurring DO Arnie Maddi Work Phone: [facility] Start: 05-31-2022 End: 05-31-2022 Patient encounter procedure DO Arnie Linda Work Phone: [facility] [place] Start: 05-12-2022 End: 05-13-2022 ambulatory AVERY SYED MD Facility:[facility]1 Start: 05-10-2022 End: 05-11-2022 ambulatory ROXANNE SANCHEZ Facility:[facility]1 Start: 04-26-2022 End: 04-27-[address] DOCTOR EDWARDS Facility:[facility] Start: 04-11-2022 End: 07-07-[address] ARNIE LINDA Facility:[facility]1 Start: 04-08-2022 End: 04-09-[address] ARNIE LINDA Facility:[facility] Start: 03-30-2022 End: 04-02-2022 Evaluation and management of inpatient GILMER CHADWICK Facility:[facility] Start: 03-25-2022 End: 03-26-2022 ambulatory ENRRIQUE MCKEON Facility:[facility]1 Start: 03-11-2022 ambulatory ENRRIQUE MCKEON Facility :[facility]1 Start: 03-06-2022 End: 03-07-2022 Evaluation and management of inpatient DR RUPINDER GRIGSBY . Facility:[facility]1 Start: 03-04-2022 End: 03-05-[address] ARNIE LINDA Facility:[facility]1 Start: 08-17-2021 End: 08-17-2021 Pre-procedure evaluation check Arnie Linda Other [facility] Other Start: 08-15-2021 Bradycardia DO Arnie neumann Work Phone: [facility] Procedures Date Procedure Procedure Detail Performing Clinician Start: 08-30-2023 Carcinoembryonic antigen cea Chivo Keller II Comment on above: Result Comment: PERF ORMED BY: [place] [address] PATHOLOGIST KNITTER MACHINE TRU UMANZOR M.D. Performed By: #### C MP, FE and TIBC, TONY, CBC, CEA #### [address] Start: 08-30-2023 CT of abdomen and pe lvis without contrast DO Arnie Ball Work Phone: Start: 08-30-2023 CT of chest without contrast DO Arnie Ball Work Phone: Start: 02-28-2023 Carcinoembryonic antigen cea Chivo Keller II Comment on above: Result Comment: PERF ORMED BY: [place] [address] PATHOLOGIST KNITTER MACHINE TRU UMANZOR M.D. Performed By: #### C MP, FE and TIBC, TONY, CBC, CEA #### [facility] [address] Start: 02-28-2023 CT of abdomen and pe lvis without contrast DO Arnie Ball Work Phone: Start: 02-28-2023 CT of chest without contrast DO Arnie Ball Work Phone: Start: 01-02-2023 PSA screening ROXANNE B OES Comment on above: Performed By: #### F T4, PSASC #### [facility] [address] [place] [address] Dr. Benito Schwartz Start: 08-31-2022 CT of [...] for malign ant neoplasm of colon Arnie Ball Other Start: 08-24-2016 Pre-surgery evaluation Arnie Linda Other Start: 08-24-2016 Preoperative cardiov ascular examination Arnie Linda Other Start: 01-01-2015 Screening for malign ant neoplasm of prostate Arnie Linda Other Depression screening Shannon Linda Other SARS Antigen (LFIA) DO Gume Linda Work Phone: Screening for malign ant neoplasm of prostate Arnie Linda Other Plan of Treatment Date Care Activity Detail Author Start: 07-21-2022 [facility] Start: 06-17-2022 Registered Recurring Colon cancer [facility] Start: 06-17-2022 [facility] Start: 06-10-2022 [facility] Start: 02-22-2022 CT abdomen pelvis w con CT abdomen pelvis w con [facility] Start: 02-22-2022 CT chest w con CT chest w con [facility] Carcinoembryonic Ag [Mass/volume] in Serum or Plasma [facility] Work Phone: Carcinoembryonic Ag [Mass/volume] in Serum or Plasma [facility] Carcinoembryonic Ag [Mass/volume] in Serum or Plasma [facility] Comprehensive metabo lic 1999 panel - Serum or Plasma [facility] Work Phone: Comprehensive metabo lic 1999 panel - Serum or Plasma [facility] Comprehensive metabo lic 1999 panel - Serum or Plasma [facility] Comprehensive metabo lic 1999 panel - Serum or Plasma [facility] CT Abdomen and Pelvi s W contrast IV [facility] Work Phone: CT Abdomen and Pelvi s W contrast IV [facility] CT Abdomen and Pelvi s W contrast IV [facility] CT Abdomen and Pelvi s WO contrast [facility] Work Phone: CT Abdomen and Pelvi s WO contrast [facility] CT Abdomen and Pelvi s WO contrast [facility] CT Chest W contrast IV [facility] Work Phone: CT Chest W contrast IV [facility] CT Chest W contrast IV [facility] CT Chest WO contrast [facility] Work Phone: CT Chest WO contrast [facility] Ferritin [Mass/volum e] in Serum or Plasma [facility] Patient Education Hemorrhoids Co arelis Polyps [facility] Work Phone: [facility] Immunizations Immunization Date Immunization Notes Care Provider Fa cilidevan 07-10-2022 COVID-19 Pfizer (bivalent) Arnie Linda Other [facility] Other 07-10-2022 COVID-19 Pfizer (Pediatric) Arnie Linda Other [facility] Other 07-04-2022 influenza virus vaccine, split virus (incl. purified surface antigen) Arnie Linda Other [facility] Other 07-04-2022 influenza, high dose seasonal, preservative-free Arnie Linda Other [facility] Other 02-07-2022 COVID-19 Pfizer Arnie pedroza Other bulletn. [facility] [employer] Other 02-07-2022 COVID-19 Vaccine Pfi zer - Documentation Purposes Only Arnie Linda Other [facility] Other 07-28-2021 influenza virus vaccine, split virus (incl. purified surface antigen) Arnie Linda Other [facility] Other 07-15-2021 COVID-19 mRNA, Comirnaty (Pfizer) DO Arnie Linda Work Phone: [facility] 12-03-2020 COVID-19 mRNA, Comirnaty (Pfizer) DO Arnie Linda Work Phone: [facility] 11-12-2020 COVID-19 mRNA, Comirnaty (Pfizer) DO Arnie Linda Work Phone: [facility] 06-30-2020 influenza virus vaccine, split virus (incl. purified surface antigen) Arnie Linda Other [facility] Other 07-19-2019 influenza virus vaccine, split virus (incl. purified surface antigen) Arnie Linda Other [facility] Other 07-17-2018 influenza virus vaccine, split virus (incl. purified surface antigen) Arnie Linda Other [facility] Other 12-25-2017 diphtheria, tetanus toxoids and acellular pertussis vaccine, unspecified formulation Arnie Linda Other [facility] Other 07-24-2017 influenza virus vaccine, split virus (incl. purified surface antigen) Arnei Linda Other [facility] Other 07-12-2016 influenza virus vaccine, split virus (incl. purified surface antigen) Arnie Linda Other [facility] Other 05-26-2016 pneumococcal Conjuga te, unspecified formulation; Translations: [Need for prophylactic vaccination against Streptococcus pneumoniae (pneumococcus)] Arnie Linda Other [facility] Other 05-26-2016 pneumococcal conjuga te vaccine, 13 valent Arnie Linda Other [facility] Other 07-08-2015 influenza virus vaccine, split virus (incl. purified surface antigen) Arnie Linda Other [facility] Other 08-02-2013 tetanus and diphther ia toxoids, adsorbed, preservative free, for adult use (5 Lf of tetanus toxoid and 2 Lf of diphtheria toxoid) Arnie Linda Other [facility] Other 08-02-2013 pneumococcal polysaccharide vaccine, 23 valent Arnie Linda Other [facility] Other 06-27-2012 tetanus and diphther ia toxoids, adsorbed, preservative free, for adult use (5 Lf of tetanus toxoid and 2 Lf of diphtheria toxoid) Arnie Linda Other [facility] Other Payers Date Payer Category Payer Medicare [id number] 1957 Self-pay [id number] 1959 Unknown [id number] 1940 Unknown [id number] 2.16.8 40.1.654334.3.579.2.647 1942 Unknown [id number] 2.16.84 0.1.049805.3.579.2.593 1942 Unknown [id number] 2.16.84 0.1.024752.3.579.2.593 1942 Unknown [id number] 2.16.84 0.1.029286.3.579.2.593 1942 Unknown [id number] 2.16.84 0.1.375508.3.579.2.593 1942 Unknown [id number] 2.16.84 0.1.439503.3.579.2.593 1942 Unknown [id number] 2.16.84 0.1.283990.3.579.2.593 1942 Unknown [id number] 2.16.84 0.1.374055.3.579.2.593 1942 Unknown [id number] 2.16.84 0.1.410124.3.579.2.593 194 Unknown [id number] 2.16.84 0.1.453721.3.579.2.593 194 Unknown [id number] 2.16.84 0.1.277590.3.579.2.593 1942 Unknown [id number] 2.16.84 0.1.612563.3.579.2.593 1942 Unknown [id number] 2.16.84 0.1.862070.3.579.2.593 1942 Unknown [id number] 2.16.84 0.1.423426.3.579.2.593 1942 Unknown [id number] 2.16.84 0.1.139481.3.579.2.593 1942 Unknown [id number] 2.16.84 0.1.439455.3.579.2.593 1942 Unknown [id number] 2.16.84 0.1.163443.3.579.2.593 1942 Unknown [id number] 2.16.84 0.1.919814.3.579.2.593 1942 Unknown [id number] 2.16.84 0.1.656654.3.579.2.593 1942 Unknown [id number] 2.16.84 0.1.180080.3.579.2.593 1942 Unknown [id number] 2.16.84 0.1.132986.3.579.2.593 194 Unknown [id number] 2.16.84 0.1.343977.3.579.2.593 Unknown [id number] 2.16.84 0.1.191530.3.579.2.593 Unknown [id number] 2.16.8 40.1.127149.3.579.2.531 Social History Date Type Detail Facility Start: 06-03-2022 End: 09-01-2023 Tobacco smoking status NHIS Ex-smoker (finding) [facility] Start: 1940 Sex Assigned At Male F [facility] Sex Assigned At Sex Assigned At Bir th [facility] Other Goals Date Patient Goal Desired Activity /State Clinical Notes 08-31-2021 to 12-18-2023 Note Date & Type Note Facility 12-18-2023 Evaluation note Encounter Date Diagnosis Assessment Notes Dec, Thyrotoxicosis (ICD-10 - E05.90) Dec, 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 He is [...] Judgment: Judgment normal. Allergies Allergies Allergen Reactions Mdyklzw-Avc-Gnj Reductase Inhibitors Tramadol Medications Current Outpatient Medications: [...] in the morning., Di (more content not included)...[facility]11-12-2023 Evaluation note* Encounter Date Diagnosis Assessment Notes Treatment Notes Treatment Clinical Notes Aug, Hyperuricemia (ICD-1 0 - E79.0) [facility] Other [id number] Evaluation note* Encounter Date Diagnosis Assessment Notes [...] are maintaining regular scheduled appts with their signal mechanic. No bleeding complications Aug, Mucopurulent chronic bronchitis [...] use, the patient reduces the risk for AZ, CVA, HTN, cardiac dysrhythmias and sudden cardiac [...] the risk for cerebrovascular and cardiovascular disease. [facility] Other 09-15-2023 NoteCardiology Clinic Note Subjective Nas [...] level. He has recently been seeing a tissue specialist due to increased creatinine levels, he is a 2.7 per recent labs. Him and both state tissue specialist may refer him to a dialysis specialist. He continues to urinate on a regular basis and reviewing labs he is not holding onto electrolytes. He states he is repeating his labs this week per the tissue specialist. Update: 06/30/2023 Here for routine follow-up Was [...] No gross deficits Allergies Allergies Allergen Reactions Vghmjti-Kjg-Jts Reductase Inhibitors Tramadol Medications Current Outpatient Medications: [...] route for 30 days., Disp: , Rfl: Treleumberto Ellipta 200-62.5-25 mcg blister with device, INHALE [...] 99, CO2 32.4, (more content not included)... [facility]09-15-2023 NotePatient here for 2 mo follow up CHF per VIGNESH Alvarado. Denies chest pain, SOB, LE edema, and bleeding on Eliquis. Review of Systems Cardiovascular: Negative for paroxysmal nocturnal dyspnea and syncope. All other systems reviewed and are negative.[facility] 06-23-2023 NoteUT CARDIOLOGY PROGRESS NOTE HPI: HPI Nas Ren is a 82 y.o. year old male patient with chronic systolic heart failure, stage III chronic kidney disease, atrial flutter s/p ablation 10/[address] Alejandre, [facility] s/p DC PPM and hypertension. He is [...] Smoking status: Former Types: Cigarettes Quit date: 1982 Years since quittin.7 Smokeless tobacco: Never Substance Use Topics Alcohol use: Yes Comment: OCCASIONAL Drug use: Never Allergies Allergen Reactions Edeagwr-Snd-Daf Reductase Inhibitors Tramadol Medications: Current Outpatient Medications [...] Normal left atria (more content not included)... [facility]09-08-2023 NotePatient here for wound check s/p BiV upgrade on 06/12/[address] Degroot.[facility] 06-22-2023 Evaluation note* Encounter Date Diagnosis Assessment Notes Treatment Notes Treatment Clinical Notes Jun, Hypothyroidism due t o medication (ICD-10 - E03.2) [facility] Other 08-30-2023 NotePt's called and was worried [...] overall states he feels well Roxanne Sanchez PUBLIC AFFAIRS MANAGER Division of Cardiology, [facility]- [phone] Pager- [phone] Email- [email or web address]-28-2023 NoteBIV/WFQ-D-BLOMCYB PROCEDURE NOTE DATE OF PROCEDURE: 06/12/2023 PERFORMING [...] proceeded to place an LV lead. The Shant sheath was advanced, and with the wire to the RV. Tripwire steer Ep cathter was used to access into the body of the CS. The outer cannula was then advanced into the CS body. The EP catheter was removed and I used an amplatz wire for support. Venogram was performed. Providence catheter was advanced and venogram was performed. [...] area also to avoid phrenic capture. The Shant sheath was slit and the lead secured [...] x 3 weeks Mariusz Degroot MD Cardiac ElectrophysiologyUnKindred Hospital [facility]08-28-2023 Note Patient: Nas Ren Procedure Information Date/Time: 06/12/23 0830 Procedure: Biventricular ICD upgrade Location: [facility] ASSOCIATE TEAM PHYSICIAN 1 / [facility] (Cath) Providers: Mariusz Degorot MD Clinical information reviewed: Tobacco Allergies Meds Med Hx Surg Hx Fam Hx Soc Hx Physical Exam Airway Mallampati: II TM distance: >3 FB Cardiovascular Dental Pulmonary Abdominal Anesthesia Plan ASA 2 CSE Anesthetic plan and risks discussed with patient. Use of blood products discussed with patient who. Additional Equipment RequestsUnKindred Hospital [place]07-11-2023 Note UTP CARDIOLOGY PROGRESS NOTE Heart and Vascular Clinic HPI: Nas Ren is a 82 y.o. male with audio only virtual visit, with on speakerphone. says does not have capability for video/audio content. The patient was notified that using 3rd libertarian telecommunication application (e.g., ihiji) is not HIPPA compliant and may carry [...] flutter s/p ablation 10/[address] Alejandre, [facility] s/p DC PPM and hypertension seen in [...] amiodarone as well as Eliquis. Plan for HEATSET WINDER OPERATOR-D and FU with AV[facility] ablation, reduced eliquis to 2.5mg bid, and if unable to tolerate consider Watchman. Scheduled for 06/12/23 04/25/23 today audio only virtual visit: Concerned about implication on his heart for wait time for BiV-D upgrade to his DC PPM for HEATSET WINDER OPERATOR-D followed by [facility] ablation, presently scheduled 06/12/23. [...] OCCASIONAL Drug use: Never Allergies Allergen Reactions Yuewzva-Uuh-Scu Reductase Inhibitors Tramadol Medications: Current Outpatient Medications [...] file prior to visit. (more content not included)...[facility]07-06-2023 Evaluation note* Encounter Date Diagnosis Assessment Notes [...] use, the patient reduces the risk for AZ, CVA, HTN, cardiac dysrhythmias and sudden cardiac [...] are maintaining regular scheduled appts with their signal mechanic. No bleeding compliations Initiated on [employer] Other 06-30-2023 NotePts called that pt's leg [...] for close F/U in clinic. Roxanne Sanchez PUBLIC AFFAIRS MANAGER Division of Cardiology, [facility]- [phone] Pager- [phone] Email- [email or web address]06-20-2023 NoteUT Electrophysiology Consult Note Reason for [...] infrahisian disease. He was brought back to Test And Turn Up Technician on 02/12/2020 due to what was discussed [...] CONVERSION INSERT / REPLACE (more content not included)...[facility]05-30-2023 Evaluation note* Encounter Date Diagnosis Assessment Notes Treatment Notes Treatment Clinical Notes February, Hypothyroidism due t o medication (ICD-10 - E03.2) [facility] Other 05-19-2023 Progress note Author Leigha Nelson [facility] March 03, 2023 2:31pm Note Date/Time March 03, 2023 2:21p m [facility] at [address] [address] Hem/Onc Follow Up Note - OP Signed Patient: Nas Ren MR#: [id number] : 1940 Acct:[id number] Age/Sex: 82 / M Type: REG RCR Copies to: MD Arnie Liu,DO Chivo Keller, ALESSANDRA, DO~ Date of Service: 03/03/2023 Time of Service: 14:20 - Assessment & Plan (1) Colon cancer Plan: T2 N0 M0, stage I colon cancer resected in late 2020. Did not require adjuvant chemotherapy The patient has a brother who of colon cancer. The patient's son has Glo-Blackfan anemia. The patient has been tested for the same genetic mutation and is negative. Invthe [facility]fe colorectal germline panel was negative. No evidence [...] for coordination of care (as documented) and awsk-za-apgy counseling of patient and/or family. [facility] - Medical History Medical History: Medical [...] (Last Reviewed 07/21/22 @ 08:16 by Bev Mustafa, CAROL) History of left knee replacement Pacemaker - [...] Calcium 8.8, Iron 56, TIBC 281, Iron Sdqvruigpe29.9 L, Transferrin 201 L, Ferritin 236.7, Total [...] % (Auto) 68.3, Lymph % (Auto) 17.9, Twiggs % (Auto) 9.6, Eos % (Auto) 3.6, Baso % (Auto) 0.6, Nucleat RBC Rel Count 0.3, Neut # (Auto) 6.6, Lymph # (Auto) 1.7, Twiggs # (Auto) 0.9 H, Eos # (Auto) 0.3, Baso # (Auto) 0.1 - Home Medications and Allergies Allergies/Adverse Reactions: Allergies Rmayhye-JRI-TbM Reductase Inhibitor [Pvexhyd-Xtj-Zxn Reductase Inhibitor] Allergy (Verified 03/03/23 13:45) Muscle [...] <Electronically signed by EDWARD Nelson> 03/03/23 1431 [facility] Work Phone: 1(319) 785-605505-02-2023 Evaluation note* Encounter Date Diagnosis Assessment Notes Treatment Notes Treatment Clinical Notes February, 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 He has recently been seeing a tissue specialist due to increased creatinine levels, he is a 2.7 per recent labs. Him and both state tissue specialist may refer him to a dialysis specialist. He continues to urinate on a regular basis and reviewing labs he is not holding onto electrolytes. He states he is repeating his labs this week per the tissue specialist. Review of Systems Cardiovascular: Positive for dyspnea [...] No gross deficits Allergies Allergies Allergen Reactions Thusiiw-Jvv-Ijo Reductase Inhibitors Tramadol Medications Current Outpatient Medications: [...] BLOOD SUGAR once daily, Disp: , Rfl: pigkybmxatk-xslxnhymx-gfcjluzt (Trelegy Ellipta) 200-62.5-25 mcg blister with device, [...] route for 30 days., Disp: , Rfl: huzggsvejee-odmsuslvy-anwcefjj (Trelegy Ellipta) 200-62.5-25 mcg blister with device, [...] 03/07/2022 Global left ventricular (more content not included)...[facility]05-01-2023 NotePt is here today for a 3 month follow up. Review of Systems All other systems reviewed and are negative.[facility] 03-29-2023 Evaluation note* Encounter Date Diagnosis Assessment Notes [...] cardiomyopathy (ICD-10 - I42.0) Continue healthy diet. [facility] Other 03-09-2023 Note Attestation signed by Becka [...] Age: 82 y.o. : 1940 Account No.: [id number] Chief complaint: HPI Nas Ren is a [...] DRAINAGE 10/[birth year]1968 TOTAL KNEE ARTHROPLASTY 08/16/2016 Allergies: Idrmmss-thf-ksf reductase inhibitors and Tramadol Prior to Admission [...] 2 puffs twice a day. Historical Provider, bumetanide (Bumex) 1 mg tablet Take 1 mg by mouth in the morning. 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 [facility] - Medical History Medical History: Medical [...] % (Auto) 68.3, Lymph % (Auto) 18.5, Twiggs % (Auto) 8.4, Eos % (Auto) 4.3, Baso % (Auto) 0.5, Neut # (Auto) 4.6, Lymph # (Auto) 1.2, Twiggs # (Auto) 0.6, Eos # (Auto) 0.3, Baso # (Auto) 0.0, Nucleated RBC % (auto) 0.1 - Home Medications and Allergies Allergies/Adverse Reactions: Allergies Gorapyc-BBC-BwW Reductase Inhibitor [Ekeeazf-Pcj-Swo Reductase Inhibitor] Allergy (Verified 09/02/22 14:10) Muscle [...] Signed By: <Electronically signed by Chivo Keller II DO> 09/02/22 1438 [facility] Work Phone: 1([phone]) 706-986610-06-2022 Procedure [facility]08-19-2022 Progress note Author Leigha Nelson [facility] June 03, 2022 10:35am Note Date/Time June 03, 2022 10 :10am [facility] [place] [address] Hem/Onc Follow Up Note - OP Signed Patient: Nas Ren MR#: [id number] : 1940 Acct:[id number] Age/Sex: 82 / M Type: REG RCR [...] Scheduled for colonoscopy on 07/21/[address] 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 [facility] - Medical History Medical History: Medical [...] % (Auto) 69.9, Lymph % (Auto) 17.2, Twiggs % (Auto) 8.0, Eos % (Auto) 4.1, Baso % (Auto) 0.8, Neut # (Auto) 6.2, Lymph # (Auto) 1.5, Twiggs # (Auto) 0.7, Eos # (Auto) 0.4, Baso # (Auto) 0.1, Nucleated RBC % (auto) 0.0 - Home Medications and Allergies Allergies/Adverse Reactions: Allergies Ifrtlcq-VGC-LcQ Reductase Inhibitor [Iottuot-Iqy-Xoq Reductase Inhibitor] Allergy (Verified 06/03/22 09:55) Muscle [...] mg PO DAILY 30 days #30 tabs 08/25/21 [Rx Confirmed 06/03/22] potassium chloride 10 mEq [...] <Electronically signed by EDWARD Nelson> 06/03/22 1035 [facility] Work Phone: 1(356) 295-464806-18-2022 NoteMR#: [id number] I [facility] Pt. Name: Nas Ren Admitted: 03/30/2022 Discharged: 04/02/2022 Date of : 1940 Physician: Gilmer Salazar MD DISCHARGE SUMMARY CONSULTING SERVICES: 1. Nephrology Service. 2. Endocrinology service. 3. Cardiology service. PRINCIPAL DIAGNOSES: 1. Oqdbq-nc-wruvtpg heart failure, reduced ejection fraction of 35%. 2. Acute kidney injury on chronic kidney disease, stage 4, resolved. 3. Dyspnea, on exertion. 4. Essential hypertension. 5. History of coronary artery disease. 6. Iodine-induced hyperthyroidism, uncontrolled. 7. Kee-ljbqreb-oethozwgv diabetes mellitus, diet controlled, A1c 6.4. 8. [...] is a 81-year-old male who presented to [facility] with chief complaint of dyspnea on [...] overload occurs, he is to call his signal mechanic and/or PCP. The patient also require repeat [...] P/Live Adler PA-C Date Trans: 04/02/2022 02:36 P/hans [id number] cc: Arnie Linda D.O. [address] [place] [address] [address] [facility] [id number] [facility]05-21-2022 NotePROCEDURE: XR CHEST 1 V REASON FOR [...] Electronically authenticated by: NICK OLMEDO Date: 2022-03-05 21:29[place]05-15-2022 Progress note Author Chivo Keller [facility] February 27, 2022 12:52pm Note Date/Time February 25, 2022 12:11 pm [facility] [address] [address] Hem/Onc Follow Up Note - OP Signed Patient: Nas Ren MR#: [id number] : 1940 Acct:[id number] Age/Sex: 81 / M Type: REG RCR [...] for coordination of care (as documented) and xfpy-ws-cxbw counseling of patient and/or family. [facility] - Medical History Medical History: Medical [...] % (Auto) 65.1, Lymph % (Auto) 19.2, Twiggs % (Auto) 13.3, Eos % (Auto) 1.8, Baso % (Auto) 0.6, Neut # (Auto) 4.2, Lymph # (Auto) 1.2, Twiggs # (Auto) 0.9H, Eos # (Auto) 0.1, [...] Home Medications and Allergies Allergies/Adverse Reactions: Allergies Rqjsxtd-TLJ-ThC Reductase Inhibitor [Luivgfp-Joq-Who Reductase Inhibitor] Allergy (Verified 02/25/22 11:39) Muscle [...] Dictated By: Chivo Keller II, DO DD/ 1210 Signed By: <Electronically signed by Chivo Keller II, DO> 02/27/22 1252 [facility] Work Phone: 1(436) 655-510411-16-2021 Consult note Author Nikunj Shultz [facility] August 31, 2021 9:50am Note Date/Time August 31, 2021 9:33am [facility] [place] [address] Hem/Onc Consult Note - OP Signed Patient: Nas Ren MR#: [id number] : 1940 Acct:[id number] Age/Sex: 81 / M Type: REG RCR [...] 2021. He has recovered well from surgery. [facility] - Medical History Medical History: Medical [...] Type: None Home Medications & Allergies Allergies Xgteaxo-LLU-CmR Reductase Inhibitor [Fltvihr-Gba-Ule Reductase Inhibitor] Allergy (Verified 08/31/21 08:57) Muscle [...] or Bravo syndrome. I will discuss with [facility] genetics and refer the patient for genetic testing. - Time with Patient Coordination of Care & Counseling Time: Greater than 50% of time spent with patient was for coordination of care (as documented) and fnxn-yk-jmgv counseling of patient and/or family. Dictated By: Nikunj Shultz MD DD/ Signed By: <Electronically signed by MD Nikunj Shultz> 08/31/21 0950 [facility] Work Phone: Evaluation note* Diagnosis Onset Date Resolution Status Colon cancer acute [facility] Work Phone: Evaluation noteNo [employer] Other History and physical note Author Ramesh Rascon [facility] July 21, 2022 9:27am Note Date/Time July 21, 2022 9: 27am [facility] [address] [place] [address] Gastroenterology H&P Signed Patient: Nas Ren MR#: [id number] : 1940 Acct:[id number] Age/Sex: 82 / M Adm Date: 2 Loc: Room: Type: [facility] Attending Dr: Ramesh Rascon MD Copies to: [...] <Electronically signed by Ramesh Rascon MD> 07/21/22926 [facility] Work Phone: History general Narrative - Reported* [...] HEART CATH 04/2016 Hospitalization History See above [facility] Other History general Narrative - Reported* Type Description [...] in year 07/2022 Hospitalization History See above [facility] Other Hishpq[facility] general Narrative - Reported* Type Description Date [...] Biventricular ICD 05/2023 Hospitalization History See above [facility] Other Hospital Discharge instructions Additional Instructions DISCHARGE [...] NOT operate machinery such as power tools, [employer] mowers, snow blowers, sewing machines, etc. for [...] Follow up with PCP. - Office number [phone].[facility] Work Phone: Progress note Author Leigha Nelson [facility] June 03, 2022 10:35am Note Date/Time June 03, 2022 10 :10am [facility] [place] [address] Hem/Onc Follow Up Note - OP Signed Patient: Nas Ren MR#: [id number] : 1940 Acct:[id number] Age/Sex: 82 / M Type: REG RCR [...] for coordination of care (as documented) and vcru-ye-cyyl counseling of patient and/or family. [facility] - Medical History Medical History: Medical [...] % (Auto) 69.9, Lymph % (Auto) 17.2, Twiggs % (Auto) 8.0, Eos % (Auto) 4.1, Baso % (Auto) 0.8, Neut # (Auto) 6.2, Lymph # (Auto) 1.5, Twiggs # (Auto) 0.7, Eos # (Auto) 0.4, Baso # (Auto) 0.1, Nucleated RBC % (auto) 0.0 - Home Medications and Allergies Allergies/Adverse Reactions: Allergies Sfaaeog-UFH-MoK Reductase Inhibitor [Efhvuib-Npu-Dmu Reductase Inhibitor] Allergy (Verified 06/03/22 09:55) Muscle [...] <Electronically signed by EDWARD Nelson> 06/03/22 1035 [facility] Work Phone: Progress note Author Chivo Keller [facility] September 02, 2022 2:38pm Note Date/Time September 02, 2022 2:33pm [facility] [place] [address] Hem/Onc Follow Up Note - OP Signed Patient: Nas Ren MR#: [id number] : 1940 Acct:[id number] Age/Sex: 82 / M Type: REG RCR Copies to: MD Arnie Lui DO~ Date of Service: 09/02/2022 Time of Service: 14:31 - Assessment & Plan (1) Colon cancer Plan: T2 N0 M0, stage I colon cancer resected in late 2020. Did not require adjuvant chemotherapy The patient has a brother who of colon cancer. The patient's son has Gol-Blackfan anemia. The patient has been tested for [...] for coordination of care (as documented) and xigp-ne-kvqs counseling of patient and/or family. [facility] - Medical History Medical History: Medical [...] History (Last Reviewed 08/31/21 @ 08:58 by Quinad Bolden) Father CHF (congestive heart failure) Mother [...] % (Auto) 68.3, Lymph % (Auto) 18.5, Twiggs % (Auto) 8.4, Eos % (Auto) 4.3, Baso % (Auto) 0.5, Neut # (Auto) 4.6, Lymph # (Auto) 1.2, Twiggs # (Auto) 0.6, Eos # (Auto) 0.3, Baso # (Auto) 0.0, Nucleated RBC % (auto) 0.1 - Home Medications and Allergies Allergies/Adverse Reactions: Allergies Stcnsgl-LNN-FgI Reductase Inhibitor [Lfwbfnc-Ype-Hvq Reductase Inhibitor] Allergy (Verified 09/02/22 14:10) Muscle [...] Dictated By: Chivo Keller II, DO DD/ 30 Signed By: <Electronically signed by Chivo Keller, II, DO> 09/02/22 1438 [facility] Work Phone: Progress note Author Chivo Keller [facility] September 01, 2023 2:14pm Note Date/Time September 01, 2023 2:09pm [facility] [place] [address] Hem/Onc Follow Up Note - OP Signed Patient: Nas Ren MR#: [id number] : 1940 Acct:[id number] Age/Sex: 83 / M Type: REG RCR [...] for coordination of care (as documented) and nnlh-my-gbmv counseling of patient and/or family. [facility] - Medical History Medical History: Medical [...] Calcium 9.7, Iron 84, TIBC 290, Iron Jrahndgksa09.0, Transferrin 207, Ferritin 239.3, Total Bilirubin 0.8, AST 23, ALT 20, Alkaline Phosphatase 114 H, Total Protein 6.9, Albumin 4.4, Globulin 2.5, Albumin/Globulin Ratio 1.8 08/30/23 09:32: Corrected WBC 7.0, Uncorrected WBC Count 7.0, RBC 3.96, Hgb 12.3L, Hct 36.8 L, MCV 92.8, MCH 30.9, MCHC 33.3, RDW 14.8, Plt Count 206, MPV 7.6, Neut % (Auto) 65.9, Lymph % (Auto) 21.9, Twiggs % (Auto) 7.9, Eos % (Auto) 3.8, Baso % (Auto) 0.5, Nucleat RBC Rel Count 0.1, Neut # (Auto) 4.6, Lymph # (Auto) 1.5, Twiggs # (Auto) 0.5, Eos # (Auto) 0.3, Baso # (Auto) 0.0 - Home Medications and Allergies Allergies/Adverse Reactions: Allergies Xsajact-DBW-EhT Reductase Inhibitor [Zzjnrxv-Bxe-Jhu Reductase Inhibitor] Allergy (Verified 03/03/23 13:45) Muscle [...] by Chivo Keller II, DO> 09/01/23 1414 [facility] Work Phone: Summary Purpose Family History [...] section and content) DATE CREATED AUTHOR 07/09/2021 [facility] DATE CREATED AUTHOR AUTHOR'S ORGANIZ ATION 06/10/2022 [facility] DATE CREATED AUTHOR AUTHOR'S ORGANIZ ATION 03/01/2023 [facility] DATE CREATED AUTHOR AUTHOR'S ORGANIZ ATION 09/03/2023 [facility] DATE CREATED AUTHOR AUTHOR'S ORGANIZ ATION 09/24/2023 [facility] Care Teams (unrecognized sec tion and content) [...] Linda , DO Primary Care Provider Active Danuta Kelly NP-C Attending Provider Activ e Team Status: Inactive [...] BE BASED ON THE PRIMARY CLINICAL RECORDS. [facility] ServiceRelated [facility]. provides no warranty or guarantee of the accuracy or completeness of information in this document.
[2024-02-01 09:29] LABS: Free T4 1.03 ng/dL (0.76-1.46)
[2024-02-01 09:34] LABS: Thyroid Stimulating Hormone 8.924 uIU/mL (0.358-3.740)
[2024-02-01 09:40] LABS: Prostate Specific Antigen Scrn 0.91 ng/mL (<=4.00)
[2024-02-02 04:07] LABS: Triiodothyronine (T3) 73 ng/dL (71-180)
== END 2024-02-01 07:48 | disposition home or self-care (01) ==
LOC: LAB 07:47
PROVIDERS: PCP Internal Medicine; Visit Provider Internal Medicine
DX: E05.90 Thyrotoxicosis, unspecified without thyrotoxic crisis or storm (principal); Z12.5 Encounter for screening for malignant neoplasm of prostate
CPT/HCPCS: 36415; 84439; 84443; 84480; G0103

== ENCOUNTER 2024-02-01 07:50 | Outpatient (OUT) | payer MEDICARE, SELFPAY ==
[2024-02-01 08:27] LABS: Bilirubin Urine NEGATIVE (NEGATIVE); Blood Urine NEGATIVE (NEGATIVE); Clarity Urine CLEAR (CLEAR); Color Urine LT. YELLOW (YELLOW); Glucose Urine UA NEGATIVE (NEGATIVE); Ketones Urine NEGATIVE (NEGATIVE); Leukocyte Esterase Urine SMALL (NEGATIVE); Nitrite Urine NEGATIVE (NEGATIVE); Protein Urine TRACE mg/dL (NEG/TRACE); Urobilinogen Urine 0.2 EU/dL (0.2-1.0)
[2024-02-01 08:27] LABS: Hemoglobin 11.9 g/dL (14.0-18.0); Mean Corpuscular HGB Conc 32.2 g/dL (29.9-35.2); Mean Corpuscular Hemoglobin 30.9 pg (25.9-34.0); Mean Corpuscular Volume 96.1 fL (80.0-94.0); Mean Platelet Volume 9.5 fL (9.5-13.5); Platelet Count 199 10^3/uL (150-450); Red Blood Count 3.85 10^6/uL (4.70-6.10); Red Cell Distribution Width 13.5 % (11.0-15.0)
[2024-02-01 08:31] LABS: Creatinine Urine Random 77.24 mg/dL (20.00-300.00); Protein Creatinine Ratio Urine 0.32; Total Protein Urine Random 25.1 mg/dL (<=11.9)
[2024-02-01 09:22] LABS: Anion Gap 12.3; BUN Creatinine Ratio 20.7; Calcium 9.1 mg/dL (8.5-10.1); Carbon Dioxide 31.5 mmol/L (21.0-32.0); Chloride 101 mmol/L (98-107); Estimated GFR (African America 28 (>=60); Estimated GFR (Non-African Ame 23 (>=60); Glucose 128 mg/dL (74-106); Magnesium 2.4 mg/dL (1.8-2.4); Phosphorus 4.1 mg/dL (2.6-4.7); Potassium 3.8 mmol/L (3.5-5.1); Sodium 141 mmol/L (136-145)
[2024-02-02 11:09] LABS: PTH, Intact 52 pg/mL (15-65)
== END 2024-02-01 07:51 | disposition home or self-care (01) ==
LOC: LAB 07:50
PROVIDERS: PCP Internal Medicine; Visit Provider Internal Medicine Nephrology
DX: E05.90 Thyrotoxicosis, unspecified without thyrotoxic crisis or storm (principal); Z12.5 Encounter for screening for malignant neoplasm of prostate; N18.4 Chronic kidney disease, stage 4 (severe)
CPT/HCPCS: 36415; 80048; 81003; 82306; 82570; 83735; 83970; 84100; 84156; 84439; 84443; 84480; 85027; G0103

== ENCOUNTER 2024-04-24 08:31 | Outpatient (OUT) | payer MEDICARE, SELFPAY ==
[2024-04-24 09:45] LABS: Thyroid Stimulating Hormone 7.937 uIU/mL (0.358-3.740)
== END 2024-04-24 08:32 | disposition home or self-care (01) ==
LOC: LAB 08:32
PROVIDERS: PCP Internal Medicine; Visit Provider Internal Medicine
DX: E03.2 Hypothyroidism due to medicaments and other exogenous substances (principal)
CPT/HCPCS: 36415; 84443

== ENCOUNTER 2024-07-17 18:03 | Emergency (ER) | payer MEDICARE, SELFPAY ==
[2024-07-17] VITALS (19 sets, daily range): BP systolic 108–136; BP diastolic 60–74; PULSE 70–72; TEMP 36.8; O2SAT 92–95; BMI 29.6
--- OUTSIDE RECORDS SUMMARY | 2024-07-17 18:53 | XMS_ITS | CCD ---
Author Organization [facility] Care Team Providers Care Crm Solution Architect Name Role Phone GILMER SALAZAR Attending Unavailable GILMER SALAZAR Admitting Unavailable ARNIE LINDA Referring Unavailable ARNIE LINDA Primary Care Unavailable DO Arnie Linda Primary Care Provider CHARLENE Kelly Attending Provider MD Kalia Sánchez Referring Provider DO Chivo Keller II Attending Provider [phone] MD Kalia Sánchez Referring Provider [phone] DO Chivo Keller II Attending Provider [phone] MD Ramesh Rascon Attending Provider DO Arnie Linda Primary Care Provider MD Ramesh Rascon Attending Provider MD Kalia Sánchez Referring Provider DO Chivo Keller II Attending Provider Arnie Linda Unavailable LAURA, FERMIN Admitting Unavailable LAURA, FERMIN Attending Unavailable LAURA, FERMIN Consulting Unavailable MADDI, DR SORENSON Primary Care Unavailable MISC, DR VELASQUEZ Consulting Unavailable MISC, DR VELASQUEZ Admitting Unavailable MISC, DR VELASQUEZ Attending Unavailable BALL, DR SORENSON Primary Care Unavailable GRIGSBY ., DR RUPINDER Staples Admitting Unavailable GRIGSBY ., DR RUPINDER Staples Attending Unavailable RUCKER, DR MICHAELA Jacobson Consulting Unavailable MADDI, DR SORENSON Primary Care Unavailable GRIGSBY ., DR RUPINDER Staples Consulting Unavailable NICK OLMEDO Consulting Unavailable ANTHONY TRACEY Consulting Unavailable MADDI, [...] SORENSON Primary Care Unavailable KUNAL BUTLER, AVERY Ennis Admitting Unavailab shaina SYED MD, AVERY Ennis Attending Unavailab le MISC, DR VELASQUEZ Consulting Unavailable BALL, DR OSRENSON Primary Care Unavailable BALL, DR SORENSON Consulting [...] MISC, DR VELASQUEZ Attending Unavailable WEST, JJ Valeds Consulting Unavailable BALL, DR SORENSON Primary Care Unavailable MISC, DR VELASQUEZ Consulting Unavailable BALL, DR SORENSON Attending Unavailable BALL, DR SOERNSON Consulting Unavailable BALL, DR SORENSON Primary Care Unavailable BALL, DR SORENSON Admitting Unavailable ZIEBER, DR MALENA Jacobson Consulting Unavailable BALL, DR SORENSON Attending Unavailable BALL, DR SORENSON Consulting Unavailable BALL, DR SORENSON Primary Care Unavailable BALL, DR SORENSON Admitting Unavailable LORI, ENRRIQUE Admitting Unavailable LORI, ENRRIQUE Attending Unavailable BALL, DR SORENSON Primary Care Unavailable BALL, DR SORENSON Consulting Unavailable LAURA, FERMIN Admitting Unavailable LAURA, FERMIN Attending Unavailable BALL, DR SORENSON Primary Care Unavailable KUNAL BUTLER, AVERY Ennis Admitting Omar Ho MD, AVERY Ennis Attending Unavailab Georgia BUTLER, AVERY Ennis Consulting Omar Stuart, DR SORENSON Primary Care Unavailable MOUKARBEL, DR SEYMOUR Admitting Unavailable MOUKARBEL, DR SEYMOUR Attending Unavailable MADDI, DR SORENSON Primary Care Unavailable DO Arnie Linda Primary Care Provider MD Kalia Sánchez Referring Provider Adamowicz II, DO Chivo J Attending Provider Kalia Sánchez Referring Unavailable Arnie Linda Primary Care Unavailable Arianna II, Chivo Howell Attending Unavaila ble Arianna APARICIO, Chivo Howell Admitting Unavaila ble DO Arnie Linda Primary Care Provider MD Kalia Sánchez Referring Provider [phone] Klausicz II, DO Chivo Howell Attending Provider GREG ALEJANDRE Referring Unavailable MIKAYLA, TRANG Referring Unavailable BASHIRGREG Referring Unavailable MIKAYLA, TRANG Referring Unavailable MOUKARBELDAWN Attending Unavailable MIKAYLATRANG Referring Unavailable MOUKARBELDAWN Attending Unavailable MADDI SONG Attending Unavailable MIKAYLA, TRANG Referring Unavailable MIKAYLA, TRANG Referring Unavailable BASHIR, GREG Referring Unavailable MIKAYLA, TRANG Referring Unavailable RANDALL TELLO Attending Unavailable Allergies Allergy Classification Reported Allergen(s) Allergy Type Date of Onset Reaction(s) Facility (3 sources) black walnut pollen extract; Translations: [[id number] REDUCTASE INHIBITORS] Drug Allergy 05-16-20 18 [facility] Rep[facility] (11 sources) traMADol; Translations: [TRAMADOL] Drug Allergy 03-30-20 22 Itching [facility] Rep[facility] (9 sources) Ittvreg-FQJ-ViU Reductase Inhibitor; Translations: [Jvpdrtd-KWH-WlE Reductase Inhibitor] Allergy to substance 06-03-[address] [facility] (13 sources) Albuterol Drug Allergy Unknown [employer] Other (17 sources) ezetimibe Drug Allergy Unknown [employer] Other (13 sources) HMG-CoA reductase inhibitor Drug allergy Unknown [employer] Other (19 sources) Niacin Drug Allergy Unknown [email or web address] [facility] Other (19 sources) Simvastatin Drug Allergy 12-18-19 24 Unknown, Unknown Reaction [facility] (8 sources) Statins Depletion *DIETARY PRODUCTS/DIETARY MANAGE Propensity to adverse reactions Unknown [employer] Other (4 sources) Allergies Reconciled Propensity to adverse reactions Unknown [employer] Other (8 sources) Albuterol *ANTIASTHMATIC AND BRONCHODILATOR AGENTS Propensity to adverse reactions Comment:dedrick lala more with this [employer] Other (4 sources) patient allergy list reviewed by nurse or physicia Propensity to adverse reactions 04-04-20 Comment:Done [employer] Other (4 sources) Niacin Drug Allergy 12-18-19 24 Unknown, Unknown Reaction [facility] (1 source) traMADol Drug Allergy 03-03-[address] [facility] Repository Medications Current Medications Medication Drug Class(es) Dates Sig (Normalized) Sig (Original) allopurinol 100 mg oral tablet (20 sources) Xanthine Oxidase Inhibitor Start: 06-09-2021 take 100 mg by mouth once daily Allopurinol Active 100 MG PO Daily June 09, 2021 12:00am amLODIPine 10 mg oral tablet (20 sources) Dihydropyridine Calcium Channel Benton Start: 07-21-2022 take 10 mg by mouth once daily Amlodipine Active 10 MG PO Daily July 21, 2022 12:00am Start: 08-02-2021 End: 08-31-2021 take 10 mg by mouth once daily Amlodipine Discontinued 10 MG PO Daily August 02, 2021 12:00am August 31, 2021 9:54am Start: 06-09-2021 End: 08-02-2021 take 5 mg by mouth once daily Amlodipine Discontinued 5 MG PO Daily June 09, 2021 12:00am August 02, 2021 1:35pm apixaban 2.5 mg oral tablet (13 sources) Factor Xa Inhibitor Start: 03-03-2023 take 1 tablet by mouth twice daily Apixaban (Eliquis) 2.5 mg Tablet Active 2.5 MG PO Twice daily March 03, 2023 12:00am Aspir-81 (7 sources) Aspir-81 Active benazepril hydrochloride 40 mg oral tablet (19 sources) Angiotensin Converting Enzyme Inhibitor Start: 12-15-2023 take 40 mg by mouth once daily Benazepril Active 40 MG PO Daily December 15, 2023 1:00am cholecalciferol 0.125 mg oral tablet (12 sources) Vitamin D Start: 12-15-2023 take 5000 [IU] by mouth once daily Cholecalciferol (Vitamin D3) Active 5000 UNIT PO Daily December 15, 2023 1:00am Start: 06-09-2021 End: 12-15-2023 take 125 ug by mouth once daily Cholecalciferol (Vitamin D3) Discontinued 125 MCG PO Daily June 09, 2021 12:00am December 15, 2023 2:47pm Contour Next Test - (17 sources) Contour Next Wendi t - as directed In Vitro Active ezetimibe 10 mg oral tablet (15 sources) Dietary Cholesterol Absorption Inhibitor Start: 03-01-2024 take 10 mg by mouth once daily Ezetimibe Active 10 MG PO Daily March 01, 2024 12:00am Start: 03-03-2023 End: 12-15-2023 take 1 tablet by mouth once daily Ezetimibe (Zetia) 10 mg Tablet Discontinued 10 MG PO Daily March 03, 2023 12:00am December 15, 2023 2:47pm Ckuvofwhqlc-Jqxiqzpae-Bewgdo er (2 sources) Start: 02-15-2024 Tixdpzewapw-Upxfjdnqy-Eubwju er (Trelegy Ellipta) 200-62.5-25 mcg blister with device Active 1 INH INHALATION Daily 90 February 15, 2024 12:00am furosemide 80 mg oral tablet (2 sources) Loop Diuret ic Start: 12-18-2023 take 80 mg by mouth once daily Furosemide Active 80 MG PO Daily December 18, 2023 1:00am hydrALAZINE hydrochloride 10 0 mg oral tablet (20 sources) Arteri olar Vasodi lator Start: 06-09-2021 take 100 mg by mouth three times daily Hydralazine Active 100 MG PO Three times daily June 09, 2021 12:00am Start: 06-09-2021 End: 08-02-2021 take 100 mg by mouth three times daily Hydralazine Discontinued 100 MG PO Three times daily June 09, 2021 12:00am August 02, 2021 1:38pm isosorbide dinitrate 10 mg oral tablet (20 sources) Nitrate Vasodilator Start: 07-21-2022 take 10 mg by mouth three times daily Isosorbide Dinitrate Active 10 MG PO Three times daily July 21, 2022 12:00am Start: 06-09-2021 End: 08-31-2021 take 10 mg by mouth three times daily Isosorbide Dinitrate Discontinued 10 MG PO Three times daily June 09, 2021 12:00am August 31, 2021 9:56am methIMAzole 10 mg oral tablet (20 sources) Thyroid Hormone Synthesis Inhibitor Start: 04-22-2024 take 5 mg by mouth every other day Methimazole Active 5 MG PO .QOD 10 April 22, 2024 11:06am Start: 04-17-2024 End: 04-22-2024 take 0.5 tablet by mouth once daily Methimazole Discontinued 0 .ROUTE .COMPLEX April 17, 2024 5:53pm April 22, 2024 11:07am take 1/2 tablet by mouth once daily for 30 DAYS Start: 02-01-2024 End: 04-17-2024 take 5 mg by mouth every other day Methimazole Discontinued 5 MG PO .QOD February 01, 2024 3:47pm April 17, 2024 5:53pm Start: 12-15-2023 End: 02-01-2024 take 5 mg by mouth once daily Methimazole Discontinued 5 MG PO Daily December 15, 2023 1:00am February 01, 2024 3:47pm Start: 10-06-2022 take 0.5 tablet by m outh once daily methIMAzole 10 MG 1/2 tablet Orally Once a day Sep, Active Start: 02-25-2022 End: 12-15-2023 take 20 mg by mouth twice daily Methimazole Discontinu ed 20 MG PO Twice daily February 25, 2022 12:00am December 15, 2023 2:46pm 24 hr metoprolol succinate 100 mg extended release oral tablet (20 sources) beta-Adrenergic Benton Start: 12-15-2023 take 100 mg by mouth once daily Metoprolol Succinate Active 100 MG PO Daily December 15, 2023 1:00am Start: 08-02-2021 End: 12-15-2023 take 100 mg by mouth once daily Metoprolol Succinate Discontinued 100 MG PO Daily August 02, 2021 12:00am December 15, 2023 2:46pm Start: 06-09-2021 End: 08-02-2021 take 25 mg by mouth once daily Metoprolol Succinate Di scontinued 25 MG PO Daily June 09, 2021 12:00am August 02, 2021 1:37pm niacin 500 mg oral tablet (20 sources) Nicotinic Acid Start: 06-09-2021 take 500 mg by mouth once daily Niacin Active 500 MG PO Daily June 09, 2021 12:00am paxlovid (300/100) 20 x 150 mg & 10 x 100mg tablet therapy pack (2 sources) Start: 01-11-2023 take 3 tablets by mouth every twelve hours Paxlovid (300/100) 20 x 150 MG & 10 x 100MG 3 tablets Orally Twice a day for 5 day(s) Dec, Active potassium chloride 10 meq extended release oral tablet (20 sources) Start: 06-09-2021 Potassium Chlo ride (Klor-Con 10) 10 mEq Tablet Extended Release Active 10 MEQ PO Daily June 09, 2021 12:00am Vitamin D3 125 MCG (5000 UT) (15 [...] Sig (Original) acetaminophen 500 mg oral tablet (8 sources) Start: 06-09-2021 End: 07-14-2021 take 500 mg by mouth every six hours Acetaminophen Discontinued 500 MG PO Q6H 120 June 09, 2021 12:00am July 14, 2021 8:42am acetaminophen 325 mg / HYDROcodone bitartrate 5 mg oral tablet (8 sources) Opioid Agonist Start: 08-22-2021 End: 08-31-2021 take 1 tablet by mouth every six hours Hydrocodone-Acetami nophen Discontinued 1 TAB PO Q6H 28 7 August 22, 2021 August 31, 2021 9:56am Anoro Ellipta (16 sources) Start: 08-02-2021 End: 03-03-2023 take 62.5 ug by inhalation once daily Anoro Ellipta Discontinued 62.5 MCG INHALATION Daily August 02, 2021 1:40pm March 03, 2023 1:44pm Start: 08-02-2021 End: 03-03-2023 take 62.5 ug [...] 2021 12:00am August 02, 2021 1:40pm aspirin 325 mg oral tablet (20 sources) Platelet Aggregation Inhibitor, Nonsteroidal Anti-inflammatory Drug Start: 12-15-2023 End: 12-15-2023 take 325 mg by mouth once daily Aspirin Discontinued 325 MG PO Daily December 15, 2023 1:00am December 15, 2023 2:44pm Start: 02-25-2022 End: 09-01-2023 take 81 mg by mouth once daily Aspirin Discontinued 81 MG PO Daily February 25, 2022 12:00am September 01, 2023 2:51pm Start: 06-09-2021 End: 08-02-2021 take 81 mg by mouth once daily Aspirin Discontinued 81 MG PO Daily June 09, 2021 12:00am August 02, 2021 1:37pm take 1 tablet by dakotah th once daily as needed Aspirin 325 mg 325 mg one tab orally daily Not-Taking/PRN take 1 tablet by dakotah th once daily Aspirin 325 mg 325 mg one tab orally daily Not-Taking Budesonide (20 sources) Corticosteroid Start: 12-15-2023 End: 02-15-2024 take 180 ug by inhalation twice daily Budesonide Discontinued 180 MCG INHALATION Twice daily December 15, 2023 1:00am February 15, 2024 11:22pm Start: 08-02-2021 End: 03-03-2023 Budesonide (Pulmicort Flexha ler) 180 mcg/actuation aerosol powdr breath activated Discontinued 360 MCG INHALATION Twice daily August 02, 2021 12:00am March 03, 2023 1:44pm Start: 08-02-2021 End: 03-03-2023 Budesonide (Pulmicort Flexha ler) 180 mcg/actuation aerosol powdr breath activated Discontinued [...] Active Pulmicort Not-Ta ting/PRN Pulmicort Not-Ta ting bumetanide 1 mg oral tablet (20 sources) Loop Diuretic Start: 12-15-2023 End: 12-18-2023 take 2 mg by mouth once daily Bumetanide Discontinued 2 MG PO Daily December 15, 2023 2:39pm December 18, 2023 11:32am Start: 08-02-2021 End: 12-15-2023 take 1 mg by mouth once daily Bumetanide Discontinued 1 MG PO Daily August 02, 2021 1:40pm December 15, 2023 2:39pm Start: 06-09-2021 End: 08-02-2021 Bumetanide Discontinued 1 MG PO Q48H June 09, 2021 12:00am August 02, 2021 1:40pm Bumex 1 MG 2 Ora lly Once a day Active carvedilol 25 mg oral tablet (17 sources) alpha-Adrenergic Benton, beta-Adrenergic Benton Carvedilol 25 MG Orally Not-Taking/PRN cefTRIAXone 2000 mg injection (8 sources) Cephalosporin Antibacterial Start: 2020 End: 2020 take 2 g intravenously every twenty-four hours Ceftriaxone Discontinued 2 GM IV Q24H 0 June 09, 2021 12:00am July 14, 2021 8:41am cloNIDine hydrochloride 0.1 mg oral tablet (17 sources) Central alpha-2 Adrenergic Agonist take 1 tablet by mouth every twenty-four hours cloNIDine HCl 0.1 MG 1 tablet at bedtime Orally Once a day Not-Taking/PRN ferrous sulfate 325 mg delayed release oral tablet (20 sources) Start: 2023 End: 2023 take 325 mg by mouth once daily Ferrous Sulfate Discontinued 325 MG PO Daily December 15, 2023 1:00am March 01, 2024 11:17am Start: 06-09-2021 End: 07-21-2022 take 324 mg by mouth once daily Ferrous Sulfate Discon tinued 324 MG PO Daily June 09, 2021 12:00am July 21, 2022 8:06am take 1 tablet by dakotah once daily Ferrous Sulfate 325 (65 Fe) MG 1 tablet Orally Once a day Active lidocaine 0.04 mg/mg medicated patch (8 sources) Antiarrhythmic, Amide Local Anesthetic Start: 06-09-2021 End: 07-14-2021 apply 1 dose topically once daily Lidocaine (Lidocaine Pain Relief) 4 % Adhesive Patch,Medicated Discontinued 2 PATCH TOPICAL Daily June 09, 2021 12:00am July 14, 2021 8:41am linagliptin 5 mg oral tablet (17 sources) Dipeptidyl Peptidase 4 Inhibitor take 1 tablet by mouth every twenty-four hours Tradjenta 5 MG 1 tablet Orally Once a day Not-Taking/PRN oxyCODONE hydrochloride 5 mg oral tablet (8 sources) Opioid Agonist Start: 06-09-2021 End: 08-02-2021 take 5 mg by mouth every six hours Oxycodone Discontinued 5 MG PO Q6H 12 05June 09, 2021 August 02, 2021 1:40pm polyethylene glycol 3350 78914 mg powder for oral solution (8 sources) Osmotic Laxative Start: 06-09-2021 End: 07-14-2021 Polyethylene Glycol 3350 (Miralax) 17 gram Powder In Packet Discontinued 17 GM PO Daily June 09, 2021 12:00am July 14, 2021 8:40am propranolol hydrochloride 10 mg oral tablet (8 sources) beta-Adrenergic Benton Start: 02-25-2022 End: 07-21-2022 take 1 tablet by mouth three times daily Propranolol (Inderal) 10 mg Tablet Discontinued 10 MG PO Three times daily February 25, 2022 12:00am July 21, 2022 8:06am Triamcinolone (20 sources) Corticosteroid Start: 04-29-2021 Kenalog -40 mg Apr, 40 mg Start: 05-09-2019 Kenalog -40 mg Apr, 40 mg Start: 01-30-2019 Kenalog -40 mg Jan, 40 mg 7 actuat umeclidinium 0.0625 mg/actuat / vilanterol 0.025 mg/actuat dry powder inhaler (19 sources) Anticholinergic, beta2-Adrenergic Agonist Start: 12-15-2023 End: 02-15-2024 Umeclidinium-Vilanterol Discontinued 1 INH INHALATION Daily December 15, 2023 1:00am February 15, 2024 11:20pm Anoro Ellipta 62 .5-25 MCG/ACT USE 1 INHALATION BY MOUTH DAILY Active Anoro Ellipta 62 .5-25 MCG/ACT USE 1 INHALATION BY MOUTH DAILY Active Problems Active Problems Problem Classification Problem Date Documented Da te Episodic/Chronic Acute posthemorrhagic anemia (11 sources) Acute posthemorrhagic anemia; Translations: [Acute posthemorrhagic anemia] Episodic Administrative/social admission (8 sources) Other reduced mobility; Translations: [Impaired mobility and activities of daily living] 08-31-2021 Episodic Asthma (4 sources) Uncomplicated moderate persistent asthma; Translations: [Moderate persistent asthma, uncomplicated] Chronic Bacterial infection; unspecified site (16 sources) Bacteremia caused by Gram-positive bacteria; Translations: [...] Translations: [Chronic obstructive pulmonary disease, unspecified] Onset: 06-04-2018 11-16-2021 Chronic Conduction disorders (20 sources) Cardiac pacemaker in situ; Translations: [Presence of cardiac pacemaker] Onset: 01-15-2020 08-31-2021 Chronic Congestive heart failure; nonhypertensive (20 sources) Heart failure with reduced ejection fraction; Translations: [Unspecified systolic (congestive) heart failure] Onset: 03-09-2022 08-31-2021 Chronic Coronary atherosclerosis and other heart disease (11 sources) Coronary arteriosclerosis; Translations: [Atherosclerotic heart disease of [place] coronary artery without angina pectoris] Onset: 03-09-2022 08-31-2021 Chronic Deficiency and other anemia (8 sources) Iron deficiency anemia; Translations: [Iron deficiency anemia, unspecified] 08-31-2021 Episodic Diabetes mellitus with complications (20 sources) [...] Chronic Hypertension with complications and secondary hypertension (14 sources) Chronic kidney disease due to hypertension; Translations: [Hypertensive chronic kidney disease with stage 1 through stage 4 chronic kidney disease, or unspecified chronic kidney disease] Onset: 03-09-2022 12-15-2023 Chronic Immunizations and screening for infectious disease (4 sources) Vaccination given; Translations: [Encounter for immunization] Episodic Infective arthritis and osteomyelitis (except that caused by tuberculosis or sexually transmitted disease) (16 sources) Osteomyelitis of vertebra; Translations: [Osteomyelitis of [...] knee joint] Chronic Other connective tissue disease (19 sources) Iliopsoas abscess; Translations: [Psoas muscle abscess] 08-31-2021 Episodic Other diseases of veins and lymphatics (20 sources) Peripheral venous insufficiency; Translations: [Venous insufficiency (chronic) (peripheral)] 12-15-2023 Episodic Other diseases of veins and lymphatics (1 source) Venous insufficiency (chronic) (peripheral) Episodic Other gastrointestinal disorders (8 sources) Constipation; Translations: [Constipation, unspecified] 08-31-2021 Episodic [...] of inflammatory arthritis and tophaceous disease Episodic Other screening for suspected conditions (not mental disorders or infectious disease) (7 sources) Encounter for screening for malignant neoplasm of prostate; Translations: [Blood chemistry abnormal] Onset: 01-03-2023 Resolved: 10-06-2022 Episodic Nolvia-; endo-; and myocarditis; cardiomyopathy (except that caused by tuberculosis or sexually transmitted disease) (20 sources) Nonischemic congestive cardiomyopathy; Translations: [Dilated cardiomyopathy] Onset: 04-13-2022 Chronic Pulmonary heart disease (11 sources) Chronic pulmonary heart disease; Translations: [Other chronic pulmonary heart diseases] Onset: 05-23-2018 Chronic Residual codes; unclassified (20 sources) Obstructive sleep apnea syndrome; Translations: [Obstructive sleep apnea (adult) (pediatric)] 12-15-2023 Chronic Residual codes; unclassified (5 sources) Obstructive sleep apnea (adult) (pediatric); Translations: [Obstructive sleep apnea (adult)(pediatric)] Chronic Residual codes; unclassified (6 sources) Patient [...] sources) Tobacco user; Translations: [Tobacco use] Episodic Screening and history of mental health [...] fibrillation; Translations: [Longstanding persistent atrial fibrillation] Onset: 03-29-2024 Past or Other Problems Problem Classification Problem Date Documented Da te Episodic/Chronic Acute and unspecified renal failure (1 source) Acute kidney failure with tubular necrosis; Translations: [ACUTE KIDNEY FAILURE TUBULR NECRSIS] Onset: 05-18-2022 Episodic Cancer of colon (1 source) Personal history of other malignant neoplasm of large intestine; Translations: [PERS HX OTH MALIG NEOPLSM LG INTEST] Onset: 03-09-2022 Episodic Deficiency and other anemia (2 sources) Iron deficiency anemia, unspecified; Translations: [IRON DEFICIENCY ANEMIA UNSPECIFIED] Onset: 03-09-2022 Episodic Diabetes mellitus without complication (4 sources) Impaired fasting glycemia; Translations: [Impaired fasting glucose] Resolved: 10-06-2022 Episodic Open wounds of head; neck; and trunk (4 sources) Laceration with foreign body of scalp, subsequent encounter; Translations: [Laceration with foreign body of scalp, subsequent encounter] Onset: 12-28-2017 Episodic Other aftercare (1 source) Other terminal block assembler (current) drug therapy; Translations: [OTH [facility]DC CURRENT DRUG THERAPY] Onset: 03-09-2022 Episodic Other [...] to excess calories] Resolved: 02-20-2020 Chronic Other skin disorders (4 sources) Sebaceous cyst; Translations: [Sebaceous cyst] Onset: 10-02-2014 Episodic Other upper respiratory infections (4 sources) Acute maxillary sinusitis; Translations: [Acute maxillary sinusitis, unspecified] Onset: 03-27-2018 Episodic Pneumonia (except that caused by tuberculosis or sexually transmitted disease) (7 sources) Pneumonia, unspecified organism; Translations: [Pneumonia] Onset: 03-06-2022 Resolved: 10-06-2022 Episodic Residual codes; unclassified (4 sources) Localized edema; Translations: [Localized edema] Onset: 03-13-2019 Episodic Residual codes; unclassified (2 sources) Other specified health status; Translations: [Other specified health status] Onset: 04-28-2023 Episodic Skin and subcutaneous tissue infections (4 sources) Carbuncle; Translations: [Carbuncle, unspecified] Resolved: 02-23-2021 Episodic Superficial injury; contusion (4 sources) Contusion of other part of head, subsequent encounter; Translations: [Contusion of other part of head, subsequent encounter] Onset: 12-28-2017 Episodic Unclassified (7 sources) Other eosinophilia; Translations: [Other eosinophilia] Viral infection (1 source) COVID-19 Results Test Name Value Interpretation Reference Range Facility Office Visiton 03-29-2024 Follow-up visit [id number] Nas Ren 1940 M Date Provider Department Center 03/29/2024 DAWN YOUSIF [facility] [employer] [facility] Family History Problem Relation Age of Onset Diabetes Mother Heart disease Father Glaucoma Brother Diabetes Maternal Grandmother Clotting disorder Other Family Status - Relation Status Age at Mother Father Brother Maternal Grandmother Other Level of Service:51982 [place] OFFICE/OUTPATIENT ESTABLISHED LOW MDM 20 MIN Normal [facility] Alanine aminotransferase [En zymatic activity/volume] in Serum or PlasmaOrdered By: Chivo Keller on 02-22-2024 ALT [Catalytic activity/Vol] 15 U/L 7-[address] [facility] Albumin [Mass/volume] in Ser um or PlasmaOrdered By: Chivo Keller on 02-22-2024 Albumin [Mass/Vol] 3.9 g/dL 2.9-4.4 [facility] Albumin [Mass/volume] in Ser um or Plasma by Bromocresol green (BCG) dye binding methoOrdered By: Chivo Keller on 02-22-2024 Albumin BCG dye [Mass/Vol] 4.4 g/dL 3.5-5.[address] [facility] Alkaline phosphatase [Enzyma tic activity/volume] in Serum or PlasmaOrdered By: Chivo Keller on 02-22-2024 ALP [Catalytic activity/Vol] 100 U/L 34-[address] [facility] Aspartate aminotransferase [ Enzymatic activity/volume] in Serum or PlasmaOrdered By: Chivo Keller on 02-22-2024 AST [Catalytic activity/Vol] 18 U/L 13-[address] [facility] Basophils Auto (Bld) [#/Vol] Ordered By: Chivo Keller on 02-22-2024 Basophils (Bld) [#/Vol] 0.0 10*3/uL 0.0-0.[address] [facility] Basophils/100 WBC Auto (Bld) Ordered By: Chivo Keller on 02-22-2024 Basophils/100 WBC (Bld) 0.5 % . [facility] Bilirubin.total [Mass/volume ] in Serum or PlasmaOrdered By: Chivo Keller on 02-22-2024 Bilirubin [Mass/Vol] 0.7 mg/dL 0.3-1.[address] [facility] [address] abdomen pelvis wo conon 0 02-22-2024 CT abdomen pelvis wo [place] [address] CT Scan Report Signed Patient: Nas Ren MR#: [id number] 24 : 1940 Acct:[id number] Age/Sex: 83 / M ADM Date: 02/22/24 Loc: Room: Type: [facility] Attending Dr: Chivo Keller II DO Copies to: Chivo Keller II, DO Ordering Provider: Chivo Keller II, DO Date of Service: 02/22/24 CT/CT abdomen pelvis wo con: surveilance ([id number]) CT/CT chest wo con: surveilance CT chest wo con, CT abdomen pelvis wo con 02/22/2024 8:23 AM SIGN AND SYMPTOMS: Restaging colon cancer TECHNIQUE: Multidetector CT axial slices of the chest, abdomen and pelvis were obtainedwith IV contrast. Multiplanar reformats were performed and viewed on a separate workstation and reviewed to further define anatomy and possible pathology. CT was performed with one or more of the following dose reduction techniques: Automated exposure control, adjustment of the mA and/or kV according to patient size, or use of iterative reconstruction technique. COMPARISON: 08/30/2020. FINDINGS: Lower neck: Thyroid gland within normal limits, no supraclavicle adenopathy. Vessels: Atherosclerotic changes are noted in the thoracic aorta and origins of the great vessels, and coronary arteries. A laser noted in the superior vena cava and heart.. Mediastinum and Marlena: There is a calcified mediastinal lymph node. Calcified hilar lymph nodes are present bilaterally. Heart: Normal size. No pericardial effusion. Airways: Within normal limits Lungs: Mild emphysematous changes are noted in the lung apices. There is a 1 cm focus of groundglass attenuation anteriorly in the base of the right upper lobe which is unchanged. There is an 8 mm calcified granuloma in the right lower lobe posteriorly. There is scarring or atelectasis in the lung bases. There is a pleural-based 6 mm calcified nodule in the left lung base. Pleura: Within normal limits. Chest Wall: Within normal limits. Abdomen: Liver: within normal limits. Bile Ducts: Normal caliber. Gallbladder: No calcified gallstones. Normal caliber wall. Pancreas: within normal limits. Spleen: within normal limits. Adrenals: There is a 12 mm nodule in the right adrenal gland which is unchanged. Kidneys: There are a few tiny hyperdense presumably hemorrhagic cyst in the kidneys which are unchanged. Pelvis: Reproductive Organs: No pelvic masses. Ureters: within normal limits. Bladder: within normal limits. Bowel: There is surgical anastomosis in the hepatic flexure consistent with previous right hemicolectomy. There is no bowel obstruction. Mesenteric Lymph Nodes: No enlarged mesenteric lymph nodes. Peritoneum: No ascites or free air, no fluid collection. Vessels: Atherosclerotic changes noted in the abdominal aorta and its branches.. Retroperitoneum: within normal limits. Abdominal Wall: within normal limits. Bones: Degenerative changes are noted in the thoracolumbar spine, symphysis pubis, hips, and sacroiliac joints. 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 CT/CT chest wo con IMPRESSION: Granulomatous changes are noted in the mediastinum, marlena, and lung parenchyma bilaterally. No evidence of pulmonary metastatic disease. There is a 12 mm nodule in the right adrenal gland which is unchanged. 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 No intra-abdominal metastatic disease. Impression dictated by: Michaela Bernard M.D.02/22/2024 2:03 PM Dictation Location: [place] [address] Transcribed By: [facility] 02/22/24 1403 Dictated By: Michaela Bernard II, MD 02/22/24 1351 Signed By: 02/22/24 1403 Normal [facility] Calcium [Mass/volume] in Ser um or PlasmaOrdered By: Chivo Keller on 02-22-2024 Calcium [Mass/Vol] 9.4 mg/dL 8.6-10.3 [facility] Carbon dioxide, total [Moles /volume] in Serum or PlasmaOrdered By: Chivo Keller on 02-22-2024 CO2 [Moles/Vol] 33.2 mmol/L High 21.0-31.0 [facility] Chloride [Moles/volume] in S alayna or PlasmaOrdered By: Chivo Keller on 02-22-2024 Chloride [Moles/Vol] 100 mmol/L 98-107 [facility] Complete Blood Count Auto Di ffon 02-22-2024 Basophils (Bld) [#/Vol] 0.0 10*3/uL Normal 0.0-0.2 [facility] Comment on above: Result Comment: PERF ORMED BY: [facility] [address] [place] [address] PATHOLOGIST COLLEGE TEACHER TRU UMANZOR M.D. Performed By: #### I FE SERUM, SPE, KAPPA #### [facility] , #### [id number], TONY, CMP, FE and TIBC, CBC #### [address] Basophils/100 WBC (Bld) 0.5 % Normal . [facility] Comment on above: Performed By: #### I FE SERUM, SPE, KAPPA #### [facility] , #### [id number], TONY, CMP, FE and TIBC, CBC #### [address] Eosinophils (Bld) [#/Vol] 0.3 10*3/uL Normal 0.0-0.45 [facility] Comment on above: Performed By: #### I FE SERUM, SPE, KAPPA #### [facility] , #### [id number], TONY, CMP, FE and TIBC, CBC #### [address] Eosinophils/100 WBC (Bld) 3.8 % Normal . [facility] Comment on above: Performed By: #### I FE SERUM, SPE, KAPPA #### [facility] , #### [id number], TONY, CMP, FE and TIBC, CBC #### [address] Erythrocyte distribution width (RBC) [Ratio] 14.6 % Normal 12.0-14.8 [facility] Comment on above: Performed By: #### I FE SERUM, SPE, KAPPA #### [facility] , #### [id number], TONY, CMP, FE and TIBC, CBC #### [address] Hematocrit (Bld) [Volume fraction] 38.1 % Low 38.8-50.0 [facility] Comment on above: Performed By: #### I FE SERUM, SPE, KAPPA #### [facility] , #### [id number], TONY, CMP, FE and TIBC, CBC #### [address] Hemoglobin (Bld) [Mass/Vol] 12.9 g/dL Low 13.0-17.0 [facility] Comment on above: Performed By: #### I FE SERUM, SPE, KAPPA #### [facility] , #### [id number], TONY, CMP, FE and TIBC, CBC #### [address] Lymphocytes (Bld) [#/Vol] 1.4 10*3/uL Normal 1.00-4.8 [facility] Comment on above: Performed By: #### I FE SERUM, SPE, KAPPA #### [facility] , #### [id number], TONY, CMP, FE and TIBC, CBC #### [address] Lymphocytes/100 WBC (Bld) 19.1 % Normal . [facility] Comment on above: Performed By: #### I FE SERUM, SPE, KAPPA #### [facility] , #### [id number], TONY, CMP, FE and TIBC, CBC #### [address] MCH (RBC) [Entitic mass] 31.6 pg Normal 27.5-35.2 [facility] Comment on above: Performed By: #### I FE SERUM, SPE, KAPPA #### [facility] , #### [id number], TONY, CMP, FE and TIBC, CBC #### [address] MCV (RBC) [Entitic vol] 93.2 fL Normal 83.5-101 [facility] Comment on above: Performed By: #### I FE SERUM, SPE, KAPPA #### [facility] , #### [id number], TONY, CMP, FE and TIBC, CBC #### [address] Mean Corpuscular HGB Conc 33.9 g/dL Normal 32.5-35.6 [facility] Comment on above: Performed By: #### I FE SERUM, SPE, KAPPA #### [facility] , #### [id number], TONY, CMP, FE and TIBC, CBC #### [address] Monocytes (Bld) [#/Vol] 0.8 10*3/uL Normal 0.0-0.8 [facility] Comment on above: Performed By: #### I FE SERUM, SPE, KAPPA #### [facility] , #### [id number], TONY, CMP, FE and TIBC, CBC #### [address] Monocytes/100 WBC (Bld) 10.0 % Normal . [facility] Comment on above: Performed By: #### I FE SERUM, SPE, KAPPA #### [facility] , #### [id number], TONY, CMP, FE and TIBC, CBC #### [address] Neutrophils (Bld) [#/Vol] 5.0 10*3/uL Normal 1.8-7.7 [facility] Comment on above: Performed By: #### I FE SERUM, SPE, KAPPA #### [facility] , #### [id number], TONY, CMP, FE and TIBC, CBC #### [address] Neutrophils/100 WBC (Bld) 66.6 % Normal . [facility] Comment on above: Performed By: #### I FE SERUM, SPE, KAPPA #### [facility] , #### [id number], TONY, CMP, FE and TIBC, CBC #### [address] NRBC% 0.0 /100{WBC} Normal 0-0.[address] [facility] Comment on above: Performed By: #### I FE SERUM, SPE, KAPPA #### [facility] , #### [id number], TONY, CMP, FE and TIBC, CBC #### [address] Platelet mean volume (Bld) [Entitic vol] 7.6 fL Normal 6.6-10.1 [facility] Comment on above: Performed By: #### I FE SERUM, SPE, KAPPA #### [facility] , #### [id number], TONY, CMP, FE and TIBC, CBC #### [address] Platelets (Bld) [#/Vol] 196 10*3/uL Normal 150-450 [facility] Comment on above: Performed By: #### I FE SERUM, SPE, KAPPA #### [facility] , #### [id number], TONY, CMP, FE and TIBC, CBC #### [address] RBC (Bld) [#/Vol] 4.09 10*6/uL Normal 3.90-5.60 [facility] Comment on above: Performed By: #### I FE SERUM, SPE, KAPPA #### [facility] , #### [id number], TONY, CMP, FE and TIBC, CBC #### [facility] [address] [place] [address] WBC (Bld) [#/Vol] 7.5 10*3/uL Normal 4.1-10.5 [facility] Comment on above: Performed By: #### I FE SERUM, SPE, KAPPA #### [facility] , #### [id number], TONY, CMP, FE and TIBC, CBC #### [facility] [address] Comprehensive Metabolic Pane arelis 02-22-2024 Albumin [Mass/Vol] 4.4 g/dL Normal 3.5-5.7 [facility] Comment on above: Performed By: #### I FE SERUM, SPE, KAPPA #### [facility] , #### [id number], TONY, CMP, FE and TIBC, CBC #### [facility] [address] Albumin/Globulin [Mass ratio] 1.5 {ratio} Normal [facility] Comment on above: Performed By: #### I FE SERUM, SPE, KAPPA #### [facility] , #### [id number], TONY, CMP, FE and TIBC, CBC #### [address] ALP [Catalytic activity/Vol] 100 U/L Normal 34-104 [facility] Comment on above: Performed By: #### I FE SERUM, SPE, KAPPA #### [facility] , #### [id number], TONY, CMP, FE and TIBC, CBC #### [address] ALT [Catalytic activity/Vol] 15 U/L Normal 7-52 [facility] Comment on above: Performed By: #### I FE SERUM, SPE, KAPPA #### [facility] , #### [id number], TONY, CMP, FE and TIBC, CBC #### [facility] [address] [place] [address] Anion gap [Moles/Vol] 10.6 mmol/L Normal 6.0-15.[address] [facility] Comment on above: Performed By: #### I FE SERUM, SPE, KAPPA #### [facility] , #### [id number], TONY, CMP, FE and TIBC, CBC #### [address] AST [Catalytic activity/Vol] 18 U/L Normal 13-39 [facility] Comment on above: Performed By: #### I FE SERUM, SPE, KAPPA #### [facility] , #### [id number], TONY, CMP, FE and TIBC, CBC #### [address] Bilirubin [Mass/Vol] 0.7 mg/dL Normal 0.3-1.0 [facility] Comment on above: Performed By: #### I FE SERUM, SPE, KAPPA #### [facility] , #### [id number], TONY, CMP, FE and TIBC, CBC #### [address] Calcium [Mass/Vol] 9.4 mg/dL Normal 8.6-10.3 [facility] Comment on above: Performed By: #### I FE SERUM, SPE, KAPPA #### [facility] , #### [id number], TONY, CMP, FE and TIBC, CBC #### [address] Chloride [Moles/Vol] 100 mmol/L Normal 98-107 [facility] Comment on above: Performed By: #### I FE SERUM, SPE, KAPPA #### [facility] , #### [id number], TONY, CMP, FE and TIBC, CBC #### [facility] [address] [place] [address] [place] CO2 [Moles/Vol] 33.2 mmol/L High 21.0-31.[address] [facility] Comment on above: Performed By: #### I FE SERUM, SPE, KAPPA #### [facility] , #### [id number], TONY, CMP, FE and TIBC, CBC #### [facility] [address] Creatinine [Mass/Vol] 2.38 mg/dL High 0.70-1.30 [facility] Comment on above: Performed By: #### I FE SERUM, SPE, KAPPA #### [facility] , #### [id number], TONY, CMP, FE and TIBC, CBC #### [facility] [address] [place] [address] [place] Creatinine Clr Calc Pharmacy 29.06 Normal [facility] Comment on above: Performed By: #### I FE SERUM, SPE, KAPPA #### [facility] , #### [id number], TONY, CMP, FE and TIBC, CBC #### [place] [address] [place] GFR/1.73 sq M.predicted MDRD (S/P/Bld) [Vol rate/Area] 26.711 mL/min/{1.73_m2} Normal [facility] Comment on above: Performed By: #### I FE SERUM, SPE, KAPPA #### [facility] , #### [id number], TONY, CMP, FE and TIBC, CBC #### [address] Globulin (S) [Mass/Vol] 3.0 g/dL Normal T [facility] Comment on above: Performed By: #### I FE SERUM, SPE, KAPPA #### [facility] , #### [id number], TONY, CMP, FE and TIBC, CBC #### [place] [address] [place] Glucose [Mass/Vol] 129 mg/dL High 70-100 [facility] Comment on above: Result Comment: [place] Glucose Reference Range is dependent on time and content of last meal. Glucose of more than 200 mg/dL in a nonstressed, ambulatory subject supports the diagnosis of Diabetes Mellitus. ADA recommended reference range Performed By: #### I FE SERUM, SPE, KAPPA #### [facility] , #### [id number], TONY, CMP, FE and TIBC, CBC #### [address] Potassium [Moles/Vol] 3.8 mmol/L Normal 3.5-5.1 [facility] Comment on above: Performed By: #### I FE SERUM, SPE, KAPPA #### [facility] , #### [id number], TONY, CMP, FE and TIBC, CBC #### [address] Protein [Mass/Vol] 7.4 g/dL Normal 6.4-8.9 [facility] Comment on above: Performed By: #### I FE SERUM, SPE, KAPPA #### [facility] , #### [id number], TONY, CMP, FE and TIBC, CBC #### [address] Sodium [Moles/Vol] 140 mmol/L Normal 136-145 [facility] Comment on above: Performed By: #### I FE SERUM, SPE, KAPPA #### [facility] , #### [id number], TONY, CMP, FE and TIBC, CBC #### [address] Urea nitrogen [Mass/Vol] 59 mg/dL High 7-25 [facility] Comment on above: Performed By: #### I FE SERUM, SPE, KAPPA #### [facility] , #### [id number], TONY, CMP, FE and TIBC, CBC #### [address] Creatinine [Mass/volume] in Serum or PlasmaOrdered By: Chivo Keller on 02-22-2024 Creatinine [Mass/Vol] 2.38 mg/dL High 0.70-1.30 [facility] Eosinophils Auto (Bld) [#/Vo l]Ordered By: Chivo Keller on 02-22-2024 Eosinophils (Bld) [#/Vol] 0.3 10*3/uL 0.0-0.[address] [facility] Eosinophils/100 WBC Auto (Bl d)Ordered By: Chivo Keller on 02-22-2024 Eosinophils/100 WBC (Bld) 3.8 % . [facility] Erythrocyte distribution wid th Auto (RBC) [Ratio]Ordered By: Chivo Keller on 02-22-2024 Erythrocyte distribution width (RBC) [Ratio] 14.6 % 12.0-14.[address] [facility] Ferritinon 02-22-2024 Ferritin [Mass/Vol] 236.8 ng/mL Normal 23.9-336.2 [facility] Comment on above: Performed By: #### I FE SERUM, SPE, KAPPA ####[facility] ,#### [id number], TONY, CMP, FE and TIBC, CBC ####[facility] [id number] Ferritin [Mass/volume] in Se rum or PlasmaOrdered By: Chivo Keller on 02-22-2024 Ferritin [Mass/Vol] 236.8 ng/mL 23.9-336.2 [facility] Folate [Mass/volume] in Seru m or PlasmaOrdered By: Chivo Keller on 02-22-2024 Folate [Mass/Vol] 36.0 ng/mL >5.9 [facility] Comment on above: Folate reference ran ge: >5.9 ng/mlThe WHO technical consultation on folate and vitamin [id number] has determined that folate concentrations lessthan 4 ng/ml are considered deficient. Free K+L LT Chains, Qn, Son 02-22-2024 Free [place] Light Chains, S 56.1 mg/L High 3.3-19.4 [facility] Comment on above: Performed By: #### I FE SERUM, SPE, KAPPA ####[facility] ,#### [id number], TONY, CMP, FE and TIBC, CBC ####[place] [id number] [address] Free [place] Light Chains, S 37.2 mg/L High 5.7-26.3 [facility] Comment on above: Performed By: #### I FE SERUM, SPE, KAPPA ####[facility] ,#### [id number], TONY, CMP, FE and TIBC, CBC ####[place] [id number] [place]/Lambda Ratio, S 1.51 Normal 0.26-1.65 [facility] Comment on above: Result Comment: Perf ormed at: - [facility] [address] [id number] [employer] Representative: Nathan Munoz PhD, Phone: [phone] PERFORMED BY: [facility] [address] [place] [address] PATHOLOGIST COLLEGE TEACHER TRU UMANZOR M.D. Performed By: #### I FE SERUM, SPE, KAPPA ####[facility] ,#### [id number], TONY, CMP, FE and TIBC, CBC ####[address] Globulin Calc (S) [Mass/Vol] Ordered By: Chivo Keller on 02-22-2024 Globulin (S) [Mass/Vol] 3.0 g/dL [facility] Glucose [Mass/volume] in Ser um or PlasmaOrdered By: Chivo Keller on 02-22-2024 Glucose [Mass/Vol] 129 mg/dL High 70-100 [facility] Comment on above: ADA recommended refe rence rangeRandom Glucose Reference Range is dependent on time and content of last meal. Glucose of more than 200 mg/dL in a nonstressed, ambulatory subject supports the diagnosis of Diabetes Mellitus. Hematocrit Auto (Bld) [Volum e fraction]Ordered By: Chivo Keller on 02-22-2024 Hematocrit (Bld) [Volume fraction] 38.1 % Low 38.8-50.[address] [facility] Hemoglobin [Mass/volume] in BloodOrdered By: Chivo Keller on 02-22-2024 Hemoglobin (Bld) [Mass/Vol] 12.9 g/dL Low 13.0-17.[address] [facility] IgA [Mass/volume] in Serum o r PlasmaOrdered By: Chivo Keller on 02-22-2024 IgA [Mass/Vol] 179 mg/dL 61-[address] [facility] IgG [Mass/volume] in Serum o r PlasmaOrdered By: Chivo Keller on 02-22-2024 IgG [Mass/Vol] 987 mg/dL 603-[address] [facility] IgM [Mass/volume] in Serum o r PlasmaOrdered By: Chivo Keller on 02-22-2024 IgM [Mass/Vol] 143 mg/dL 15-[address] [facility] Comment on above: Performed at: [place] [id number] Director: Nathan Munoz PhD, Phone: [phone] Immunofixation,Serumon 02-21 Immunofixation, Serum Normal . [facility] Comment on above: Result Comment: No m onoclonality detected. Performed By: #### I FE SERUM, SPE, KAPPA ####[facility] ,#### [id number], TONY, CMP, FE and TIBC, CBC ####[facility] [place] [address] [facility] Immunoglobulin A, Serum 179 mg/dL Normal 61-437 [facility] Comment on above: Performed By: #### I FE SERUM, SPE, KAPPA ####[facility] ,#### [id number], TONY, CMP, FE and TIBC, CBC ####[place] [address] [place] [address] [place] Immunoglobulin G 987 mg/dL Normal 603-[address] [facility] Comment on above: Performed By: #### I FE SERUM, SPE, KAPPA ####[facility] ,#### [id number], TONY, CMP, FE and TIBC, CBC ####[facility] [id number] Immunoglobulin M, Serum 143 mg/dL Normal 15-143 [facility] Comment on above: Result Comment: Perf ormed at: - [facility] [place] [id number] [employer] Representative: Nathan Munoz PhD, Phone: [phone] Performed By: #### I FE SERUM, SPE, KAPPA ####[facility] ,#### [id number], TONY, CMP, FE and TIBC, CBC ####[facility] [id number] Immunoglobulin light chains. kappa.free [Mass/volume] in SerumOrdered By: Chivo Keller on 02-22-2024 Immunoglobulin light chains.kappa.free (S) [Mass/Vol] 56.1 mg/L High 3.3-19.[address] [facility] Immunoglobulin light chains. kappa.free/Immunoglobulin light chains.lambda.free [MassOrdered By: Chivo Keller on 02-22-2024 Immunoglobulin light chains.kappa.free/Immuno globulin light chains.lambda.free (S) [Mass ratio] 1.51 0.26-1.[address] [facility] Comment on above: Performed at: - [facility] [place] [id number] Director: Nathan Munoz PhD, Phone: [phone] Immunoglobulin light chains. lambda.free [Mass/volume] in Serum or PlasmaOrdered By: Chivo Keller on 02-22-2024 Immunoglobulin light chains.lambda.free [Mass/Vol] 37.2 mg/L High 5.7-26.[address] [facility] Iron [Mass/volume] in Serum or PlasmaOrdered By: Chivo Keller on 02-22-2024 Iron [Mass/Vol] 85 ug/dL 50-[address] [facility] Iron and TIBC Profileon % Iron Saturation 30.2 % Normal 20-50 [facility] Comment on above: Performed By: #### I FE SERUM, SPE, KAPPA ####[facility] ,#### [id number], TONY, CMP, FE and TIBC, CBC ####[place] [address] [place] [address] [facility] Iron [Mass/Vol] 85 ug/dL Normal 50-212 [facility] Comment on above: Performed By: #### I FE SERUM, SPE, KAPPA ####[facility] ,#### [id number], TONY, CMP, FE and TIBC, CBC ####[address] [address] [facility] Total Iron Binding Capacity 281 ug/dL Normal 255-450 [facility] Comment on above: Performed By: #### I FE SERUM, SPE, KAPPA ####[facility] ,#### [id number], TONY, CMP, FE and TIBC, CBC ####[place] [id number] [facility] Transferrin [Mass/Vol] 201 mg/dL Low 203-[address] [facility] Comment on above: Performed By: #### I FE SERUM, SPE, KAPPA ####[facility] ,#### [id number], TONY, CMP, FE and TIBC, CBC ####[place] [id number] [facility] Iron binding capacity [Mass/ volume] in Serum or PlasmaOrdered By: Chivo Keller on 02-22-2024 Iron binding capacity [Mass/Vol] 281 ug/dL 255-[address] [facility] Iron saturation [Mass Fracti on] in Serum or PlasmaOrdered By: Chivo Keller on 02-22-2024 Iron saturation [Mass fraction] 30.2 % 20-[address] [facility] Leukocytes [#/volume] correc bonnie for nucleated erythrocytes in Blood by Automated counOrdered By: Chivo Keller on 02-22-2024 WBC corrected for nucl RBC Auto (Bld) [#/Vol] 7.5 10*3/uL 4.1-10.[address] [facility] Lymphocytes Auto (Bld) [#/Vo l]Ordered By: Chivo Keller on 02-22-2024 Lymphocytes (Bld) [#/Vol] 1.4 10*3/uL 1.00-4.[address] [facility] Lymphocytes/100 WBC Auto (Bl d)Ordered By: Chivo Keller on 02-22-2024 Lymphocytes/100 WBC (Bld) 19.1 % . [facility] MCH Auto (RBC) [Entitic mass ]Ordered By: Chivo Keller on 02-22-2024 MCH (RBC) [Entitic mass] 31.6 pg 27.5-35.[address] [facility] MCHC Auto (RBC) [Mass/Vol]Or dered By: Chivo Keller on 02-22-2024 MCHC (RBC) [Mass/Vol] 33.9 g/dL 32.5-35.[address] [facility] MCV Auto (RBC) [Entitic vol] Ordered By: Chivo Keller on 02-22-2024 MCV (RBC) [Entitic vol] 93.2 fL 83.5-101 F [facility] Monocytes Auto (Bld) [#/Vol] Ordered By: Chivo Keller on 02-22-2024 Monocytes (Bld) [#/Vol] 0.8 10*3/uL 0.0-0.[address] [facility] Monocytes/100 WBC Auto (Bld) Ordered By: Chivo Keller on 02-22-2024 Monocytes/100 WBC (Bld) 10.0 % . [facility] Neutrophils Auto (Bld) [#/Vo l]Ordered By: Chivo Keller on 02-22-2024 Neutrophils (Bld) [#/Vol] 5.0 10*3/uL 1.8-7.[address] [facility] Neutrophils/100 WBC Auto (Bl d)Ordered By: Chivo Keller on 02-22-2024 Neutrophils/100 WBC (Bld) 66.6 % . [facility] No Panel InformationOrdered By: Chivo Keller on 02-22-2024 Protein Electrophoresis M-Tobi Not observed g/dL Not Observed [facility] Protein Electrophoresis Note See comment . [facility] Comment on above: Protein electrophore sis scan will follow via computer,mail, or ortho tech delivery.Performed at: - [address] [id number] Director: Nathan Munoz PhD, Phone: [phone] Serum Immunofixation See comment . [facility] Comment on above: No monoclonality det ected. Estimated GFR (CKD-EPI) 26.711 mL/Min [facility] Creatinine Clearance (Chem 29.[address] [facility] Nucleated erythrocytes [Pres ence] in Blood by Automated countOrdered By: Chivo Keller on 02-22-2024 Nucleated RBC Auto Ql (Bld) 0.0 /100{WBC} 0-0.[address] [facility] Platelet mean volume Auto (B ld) [Entitic vol]Ordered By: Chivo Keller on 02-22-2024 Platelet mean volume (Bld) [Entitic vol] 7.6 fL 6.6-10.[address] [facility] Platelets Auto (Bld) [#/Vol] Ordered By: Chivo Keller on 02-22-2024 Platelets (Bld) [#/Vol] 196 10*3/uL 150-[address] [facility] Potassium [Moles/volume] in Serum or PlasmaOrdered By: Chivo Keller on 02-22-2024 Potassium [Moles/Vol] 3.8 mmol/L 3.5-5.1 [facility] Protein Electrophoresis, Ser umon 02-22-2024 Albumin [Mass/Vol] 3.9 g/dL Normal 2.9-4.4 [facility] Comment on above: Performed By: #### I FE SERUM, SPE, KAPPA ####[facility] ,#### [id number], TONY, CMP, FE and TIBC, CBC ####[facility] [id number] [place] [address] [facility] Albumin/Globulin [Mass ratio] 1.3 {ratio} Normal 0.7-1.7 [facility] Comment on above: Performed By: #### I FE SERUM, SPE, KAPPA ####[facility] ,#### [id number], TONY, CMP, FE and TIBC, CBC ####[address] [id number]-8-[id number] 0.2 g/dL Normal 0.0-0.[address] [facility] Comment on above: Performed By: #### I FE SERUM, SPE, KAPPA ####[facility] ,#### [id number], TONY, CMP, FE and TIBC, CBC ####[address] Atlnt-8-Kbqkufxk 0.8 g/dL Normal 0.4-1.[address] [facility] Comment on above: Performed By: #### I FE SERUM, SPE, KAPPA ####[facility] ,#### [id number], TONY, CMP, FE and TIBC, CBC ####[address] Beta Globulin 0.9 g/dL Normal 0.7-1.[address] [facility] Comment on above: Performed By: #### I FE SERUM, SPE, KAPPA ####[facility] ,#### [id number], TONY, CMP, FE and TIBC, CBC ####[address] Gamma Globulin 1.0 g/dL Normal 0.4-1.8 [facility] Comment on above: Performed By: #### I FE SERUM, SPE, KAPPA ####[facility] ,#### [id number], TONY, CMP, FE and TIBC, CBC ####[place] [address] [place] Globulin (S) [Mass/Vol] 2.9 g/dL Normal 2.2-3.9 [facility] Comment on above: Performed By: #### I FE SERUM, SPE, KAPPA ####[facility] ,#### [id number], TONY, CMP, FE and TIBC, CBC ####[place] [id number] [address] M-Tobi Not Observed Normal Not Observed [facility] Comment on above: Performed By: #### I FE SERUM, SPE, KAPPA ####[facility] ,#### [id number], TONY, CMP, FE and TIBC, CBC ####[place] [id number] [address] Protein [Mass/Vol] 6.8 g/dL Normal 6.0-8.5 [facility] Comment on above: Performed By: #### I FE SERUM, SPE, KAPPA ####[facility] ,#### [id number], TONY, CMP, FE and TIBC, CBC ####[place] [id number] [address] SPE-Note Normal . [facility] Comment on above: Result Comment: Prot ein electrophoresis scan will follow via computer, mail, or ortho tech delivery. Performed at: - [place] [id number] [employer] Representative: Nathan Munoz PhD, Phone: [phone] Performed By: #### I FE SERUM, SPE, KAPPA ####[facility] ,#### [id number], TONY, CMP, FE and TIBC, CBC ####[place] [id number] [facility] Protein [Mass/volume] in Ser um or PlasmaOrdered By: Chivo Keller on 02-22-2024 Protein [Mass/Vol] 6.8 g/dL 6.0-8.5 [facility] Protein [Mass/Vol] 7.4 g/dL 6.4-8.9 [facility] RBC Auto (Bld) [#/Vol]Ordere d By: Chivo Keller on 02-22-2024 RBC (Bld) [#/Vol] 4.09 10*6/uL 3.90-5.60 [facility] Serum globulin measurement ( mass/volume)Ordered By: Chivo Keller on 02-22-2024 Globulin (S) [Mass/Vol] 2.9 g/dL 2.2-3.9 [facility] Serum or plasma albumin/glob ulin mass ratioOrdered By: Chivo Keller on 02-22-2024 Albumin/Globulin [Mass ratio] 1.3 {ratio} 0.7-1.[address] [facility] Albumin/Globulin [Mass ratio] 1.5 {ratio} [facility] Serum or plasma alpha 1 glob ulin measurement by electrophoresis (mass/volume)Ordered By: Chivo Keller on 02-22-2024 Alpha 1 globulin Elph [Mass/Vol] 0.2 g/dL 0.0-0.[address] [facility] Serum or plasma alpha 2 glob ulin measurement by electrophoresis (mass/volume)Ordered By: Chivo Keller on 02-22-2024 Alpha 2 globulin Elph [Mass/Vol] 0.8 g/dL 0.4-1.[address] [facility] Serum or plasma anion gap de terminationOrdered By: Chivo Keller on 02-22-2024 Anion gap [Moles/Vol] 10.6 mmol/L 6.0-15.0 [facility] Serum or plasma beta globuli n measurement by electrophoresis (mass/volume)Ordered By: Chivo Keller on 02-22-2024 Beta globulin Elph [Mass/Vol] 0.9 g/dL 0.7-1.[address] [facility] Serum or plasma gamma globul in measurement by electrophoresis (mass/volume)Ordered By: Chivo Keller on 02-22-2024 Gamma globulin Elph [Mass/Vol] 1.0 g/dL 0.4-1.[address] [facility] Sodium [Moles/volume] in Ser um or PlasmaOrdered By: Chivo Keller on 02-22-2024 Sodium [Moles/Vol] 140 mmol/L 136-145 [facility] Transferrin [Mass/volume] in Serum or PlasmaOrdered By: Chivo Keller on 02-22-2024 Transferrin [Mass/Vol] 201 mg/dL Low 203-362 [facility] Urea nitrogen [Mass/volume] in Serum or PlasmaOrdered By: Chivo Keller on 02-22-2024 Urea nitrogen [Mass/Vol] 59 mg/dL High 7-[address] [facility] Vit. B12/Folate Profileon Cobalamin (Vitamin B12) [Mass/Vol] 649 pg/mL Normal 180-914 [facility] Comment on above: Performed By: #### I FE SERUM, SPE, KAPPA ####[facility] ,#### [id number], TONY, CMP, FE and TIBC, CBC ####[place] [id number] [address] Folate 36.0 ng/mL Normal >5.9 [facility] Comment on above: Result Comment: Echo te reference range: >5.9 ng/ml The WHO technical consultation on folate and vitamin b12 deficiencies has determined that folate concentrations less than 4 ng/ml are considered deficient. PERFORMED BY: [facility] [address] [place] [address] PATHOLOGIST COLLEGE TEACHER TRU UMANZOR M.D. Performed By: #### I FE SERUM, SPE, KAPPA ####[facility] ,#### [id number], TONY, CMP, FE and TIBC, CBC ####[place] [id number] [address] Vitamin B12 ser/plasOrdered By: Chivo Keller on 02-22-2024 Cobalamin (Vitamin B12) [Mass/Vol] 649 pg/mL 180-[address] [facility] WBC Auto (Bld) [#/Vol]Ordere d By: Chivo Keller on 02-22-2024 WBC (Bld) [#/Vol] 7.5 10*3/uL 4.1-10.5 [facility] Automated urine specific gra vity by refractometryon 02-01-2024 Specific gravity Refractometry automated (U) [Rel density] 1.010 1.005-1.[address] [facility] Bilirubin Auto test strip (U ) [Mass/Vol]on 02-01-2024 Bilirubin (U) [Mass/Vol] Negative NEGATIVE [facility] Color Auto (U)on 02-01-2024 Color (U) LT. YELLOW YELLOW [facility] Erythrocyte distribution wid th Auto (RBC) [Ratio]on 02-01-2024 Erythrocyte distribution width (RBC) [Ratio] 13.5 % 11.0-15.[address] [facility] Estimated glomerular filtrat ion rate (GFR) non- Americanon 02-01-2024 GFR/1.73 sq M.predicted among non-blacks MDRD (S/P/Bld) [Vol rate/Area] 23 mL/min/{1.73_m2} Low >=[address] [facility] Glucose [Mass/volume] in Uri ne by Test stripon 02-01-2024 Glucose Test strip (U) [Mass/Vol] Negative NEGATIVE [facility] Hematocrit Auto (Bld) [Volum e fraction]on 02-01-2024 Hematocrit (Bld) [Volume fraction] 37.0 % Low 42.0-54.[address] [facility] Hemoglobin [Mass/volume] in Bloodon 02-01-2024 Hemoglobin (Bld) [Mass/Vol] 11.9 g/dL Low 14.0-18.[address] [facility] Ketones Auto test strip (U) [Mass/Vol]on 02-01-2024 Ketones (U) [Mass/Vol] Negative NEGATIVE [facility] Laboratory - Chemistry and C hemistry - challengeon 02-01-2024 Calcium [Mass/Vol] 9.1 mg/dL 8.5-10.1 [facility] Chloride [Moles/Vol] 101 mmol/L 98-107 [facility] CO2 [Moles/Vol] 31.5 mmol/L 21.0-32.0 [facility] Creatinine [Mass/Vol] 2.66 mg/dL High 0.70-1.30 [facility] Free T4 [Mass/Vol] 1.03 ng/dL 0.76-1.46 [facility] GFR/1.73 sq M.predicted MDRD (S/P/Bld) [Vol rate/Area] 28 mL/min/{1.73_m2} Low >=[address] [facility] Glucose [Mass/Vol] 128 mg/dL High 74-106 [facility] Magnesium [Mass/Vol] 2.4 mg/dL 1.8-2.4 [facility] Potassium [Moles/Vol] 3.8 mmol/L 3.5-5.1 [facility] Sodium [Moles/Vol] 141 mmol/L 136-145 [facility] TSH Qn 8.924 m[IU]/L High 0.358-3.[address] [facility] Urea nitrogen [Mass/Vol] 55.0 mg/dL High 7.0-18.[address] [facility] Urea nitrogen/Creatinine [Mass ratio] 20.7 mg/mg [facility] Laboratory - Urinalysison Protein (U) [Mass/Vol] 25.1 mg/dL High <=11.9 [facility] Leukocytes [#/volume] correc bonnie for nucleated erythrocytes in Blood by Automated counon 02-01-2024 WBC corrected for nucl RBC Auto (Bld) [#/Vol] 8.0 10 3/uL 4.0-11.[address] [facility] MCH Auto (RBC) [Entitic mass ]on 02-01-2024 MCH (RBC) [Entitic mass] 30.9 pg 25.9-34.[address] [facility] MCHC Auto (RBC) [Mass/Vol]on 02-01-2024 MCHC (RBC) [Mass/Vol] 32.2 g/dL 29.9-35.2 [facility] MCV Auto (RBC) [Entitic vol] on 02-01-2024 MCV (RBC) [Entitic vol] 96.1 fL High 80.0-94.0 F [facility] No Panel Informationon 01-31 25-Hydroxy Vitamin D Total 94.2 ng/mL [facility] Comment on above: <20 ng/mL Vit D defi cient20-<30 ng/mL Vit D edgfmefebunx51-213 ng/mL Vit D sufficient>100 ng/mL Potential Toxicity Parathyroid Hormone (Intact) 52 pg/mL 15-[address] [facility] Comment on above: Performed at: [facility] [id number] [place], [place] [id number] Director: Nathan Munoz PhD, Phone: [phone] Phosphorus Level 4.1 mg/dL 2.6-4.7 [facility] Prostate Specific Antigen Screen 0.91 ng/mL <=4.[address] [facility] Total Triiodothyronine 73 ng/dL 71-180 [facility] Comment on above: Performed at: [employer] [facility] [id number] [place], [place] [id number] Director: Nathan Munoz PhD, Phone: [phone] Urine Random Creatinine 77.24 mg/dL 20.00-300.[address] [facility] Platelet mean volume Auto (B ld) [Entitic vol]on 02-01-2024 Platelet mean volume (Bld) [Entitic vol] 9.5 fL 9.5-13.[address] [facility] Platelets Auto (Bld) [#/Vol] on 02-01-2024 Platelets (Bld) [#/Vol] 199 10 3/uL 150-[address] [facility] Protein Auto test strip (U) [Mass/Vol]on 02-01-2024 Protein (U) [Mass/Vol] TRACE mg/dL NEG/TRACE [facility] RBC Auto (Bld) [#/Vol]on RBC (Bld) [#/Vol] 3.85 10 6/uL Low 4.70-6.10 [facility] Serum or plasma anion gap de terminationon 02-01-2024 Anion gap [Moles/Vol] 12.3 mmol/L [facility] Specific gravity Auto test s trip (U) [Rel density]on 02-01-2024 Specific gravity (U) [Rel density] CLEAR CLEAR [facility] Urine hemoglobin detection b y automated test stripon 02-01-2024 Hemoglobin Auto test strip Ql (U) Negative NEGATIVE [facility] Urine nitrite detection by a utomated test stripon 02-01-2024 Nitrite Auto test strip Ql (U) SMALL Abnormal NEGATIVE [facility] Nitrite Auto test strip Ql (U) Negative NEGATIVE [facility] Urine protein/creatinine rat ioon 02-01-2024 Protein/Creatinine (U) [Ratio] 0.[address] [facility] Urobilinogen Auto test strip (U) [Mass/Vol]on 02-01-2024 Urobilinogen Qn (U) 0.2 {Jagruti'U}/dL 0.2-1.[address] [facility] pH Auto test strip (U)on pH (U) 6.0 [pH] 5.0-9.[address] [facility] Cholesterol in LDL Calc [Mas s/Vol]on 12-19-2023 Cholesterol in LDL [Mass/Vol] 81.8 mg/dL [facility] Comment on above: <100 mg/dl [id number] 0-129 mg/dl NEAR OR ABOVE [id number] mg/dl BORDERLINE [id number] mg/dl HIGH>190 mg/dl VERY HIGH Cholesterol in VLDL Calc [Ma ss/Vol]on 12-19-2023 Cholesterol in VLDL [Mass/Vol] 23.2 mg/dL [facility] Glucose mean value [Mass/vol ume] in Blood Estimated from glycated hemoglobinon 12-19-2023 Average glucose Estimated from glycated hemoglobin (Bld) [Mass/Vol] 137 mg/dL [facility] Laboratory - Chemistry and C hemistry - challengeon 12-19-2023 Cholesterol [Mass/Vol] 148 mg/dL <=[address] [facility] Cholesterol in HDL [Mass/Vol] 43 mg/dL 40-[address] [facility] Comment on above: > or =60 mg/dl - LOW CARDIOVASCULAR RISK<40 mg/dl - HIGH CARDIOVASCULAR RISK Free T4 [Mass/Vol] 1.04 ng/dL 0.76-1.46 [facility] Triglyceride [Mass/Vol] 116 mg/dL <=150 [facility] TSH Qn 11.812 m[IU]/L 0.358-3.[address] [facility] Laboratory - Hematology and Cell countson 12-19-2023 HbA1c (Bld) [Mass fraction] 6.4 % 4.5-6.[address] [facility] Comment on above: ADA RECOMMENDED LIMI T 4.0 - 6.0ADA THERAPEUTIC TARGET < 7.0ACTION SUGGESTED> 7.0 Serum or plasma total choles terol/high density lipoprotein (HDL) cholesterol mass ernesto 12-19-2023 Cholesterol.total/Choles terol in HDL [Mass ratio] 3.4 {ratio} [facility] Comment on above: 3.3 - 4.4 LOW RISK4. 4 - 7.1 AVERAGE RISK7.1 - 11.0 MODERATE RISK>11.0 HIGH RISK Office Visiton 09-22-2023 Follow-up visit [id number] Nas Ren 1940 M Date Provider Department Center 09/22/2023 [facility] Family History Problem Relation Age of Onset Diabetes Mother Heart disease Father Glaucoma Brother Diabetes Maternal Grandmother Clotting disorder Other Family Status - Relation Status Age at Mother Father Brother Maternal Grandmother Other Level of Service:75830 [place] OFFICE/OUTPATIENT ESTABLISHED LOW MDM 20-29 MIN Normal [facility] Alanine aminotransferase [En zymatic activity/volume] in Serum or PlasmaOrdered By: Leigha Nelson on 08-30-2023 ALT [Catalytic activity/Vol] 20 U/L 7-[address] [facility] Albumin [Mass/volume] in Ser um or Plasma by Bromocresol green (BCG) dye binding methoOrdered By: Leigha Nelson on 08-30-2023 Albumin BCG dye [Mass/Vol] 4.4 g/dL 3.5-5.[address] [facility] Alkaline phosphatase [Enzyma tic activity/volume] in Serum or PlasmaOrdered By: Leigha Nelson on 08-30-2023 ALP [Catalytic activity/Vol] 114 U/L 34-[address] [facility] Aspartate aminotransferase [ Enzymatic activity/volume] in Serum or PlasmaOrdered By: Leigha Nelson on 08-30-2023 AST [Catalytic activity/Vol] 23 U/L 13-[address] [facility] Basophils Auto (Bld) [#/Vol] Ordered By: Leigha Nelson on 08-30-2023 Basophils (Bld) [#/Vol] 0.0 10*3/uL 0.0-0.[address] [facility] Basophils/100 WBC Auto (Bld) Ordered By: Leigha Nelson on 08-30-2023 Basophils/100 WBC (Bld) 0.5 % . [facility] Bilirubin.total [Mass/volume ] in Serum or PlasmaOrdered By: Leigha Nelson on 08-30-2023 Bilirubin [Mass/Vol] 0.8 mg/dL 0.3-1.[address] [facility] [address] abdomen pelvis wo conon 1 10-30-2022 CT abdomen pelvis wo con [facility] [place] [address] [place] [address] CT Scan Report Signed Patient: Nas Ren MR#: [id number] [birth year] : 1940 Acct:[id number] Age/Sex: 83 / M ADM Date: 08/30/23 Loc: Room: Type: [facility] RCR Attending Dr: Chivo Keller II DO Copies to: EDWARD Luke II, DO Ordering Provider: Leigha Nelson APRN Date of Service: 08/30/23 CT/CT chest wo con: surveillance ([id number]) CT/CT abdomen pelvis wo con: surveillance CT [...] of iterative reconstruction technique. FINDINGS: CT chest: Mediastinum:Pacemak er device is in place. Cardiomegaly is noted. Thoracic aorta is normal in caliber. Pulmonary trunk appears nondilated. No pericardial effusion. Calcified mediastinal and left hilar nodes. The esophagus is grossly unremarkable. Lungs:Emphysematous changes. Mild bibasilar atelectasis/scarrin g. No consolidation pneumothorax or pleural effusion. Calcified [...] abnormality.[ Pelvis:[Urinary bladder is grossly unremarkable. Prostatomegaly. Peritoneum/Retroper itoneum:No free air, free fluid or lymphadenopathy.[ Abd wall/Bones:Abdomina l wall demonstrates no acute findings. Osseous structures demonstrate degenerative change.[ CT/CT chest wo con IMPRESSION: No significant change in chest, abdomen or pelvis findings compared to the prior study from 02/28/2023. Impression dictated by: Guy Cleveland Jr.OKeo08/30/2023 1:10 PM Dictation Location: [place] [address] Transcribed By: [facility] 08/30/23 1310 Dictated By: Sotero Scott Jr, DO 08/30/23 1304 Signed By: 08/30/23 1310 Normal [facility] Calcium [Mass/volume] in Ser um or PlasmaOrdered By: Leigha Nelson on 08-30-2023 Calcium [Mass/Vol] 9.7 mg/dL 8.6-10.3 [facility] Carbon dioxide, total [Moles /volume] in Serum or PlasmaOrdered By: Leigha Nelson on 08-30-2023 CO2 [Moles/Vol] 35.5 mmol/L 21.0-31.0 [facility] Chloride [Moles/volume] in S alayna or PlasmaOrdered By: Leigha Nelson on 08-30-2023 Chloride [Moles/Vol] 102 mmol/L 98-107 [facility] Complete Blood Count Auto Di ffon 08-30-2023 Basophils (Bld) [#/Vol] 0.0 10*3/uL Normal 0.0-0.2 [facility] Comment on above: Result Comment: PERF ORMED BY: [facility] [address] [place] [address] PATHOLOGIST COLLEGE TEACHER TRU UMANZOR M.D. Performed By: #### F ER, CEA, CBC, FE and TIBC, CMP #### [address] Basophils/100 WBC (Bld) 0.5 % Normal . T mela [facility] Comment on above: Performed By: #### F ER, CEA, CBC, FE and TIBC, CMP #### [address] Eosinophils (Bld) [#/Vol] 0.3 10*3/uL Normal 0.0-0.45 [facility] Comment on above: Performed By: #### F ER, CEA, CBC, FE and TIBC, CMP #### [address] Eosinophils/100 WBC (Bld) 3.8 % Normal . [facility] Comment on above: Performed By: #### F ER, CEA, CBC, FE and TIBC, CMP #### [address] Erythrocyte distribution width (RBC) [Ratio] 14.8 % Normal 12.0-14.8 [facility] Comment on above: Performed By: #### F ER, CEA, CBC, FE and TIBC, CMP #### [address] Hematocrit (Bld) [Volume fraction] 36.8 % Low 38.8-50.0 [facility] Comment on above: Performed By: #### F ER, CEA, CBC, FE and TIBC, CMP #### [address] Hemoglobin (Bld) [Mass/Vol] 12.3 g/dL Low 13.0-17.0 [facility] Comment on above: Performed By: #### F ER, CEA, CBC, FE and TIBC, CMP #### [address] Lymphocytes (Bld) [#/Vol] 1.5 10*3/uL Normal 1.00-4.8 [facility] Comment on above: Performed By: #### F ER, CEA, CBC, FE and TIBC, CMP #### [address] Lymphocytes/100 WBC (Bld) 21.9 % Normal . [facility] Comment on above: Performed By: #### F ER, CEA, CBC, FE and TIBC, CMP #### [address] MCH (RBC) [Entitic mass] 30.9 pg Normal 27.5-35.2 [facility] Comment on above: Performed By: #### F ER, CEA, CBC, FE and TIBC, CMP #### [address] MCV (RBC) [Entitic vol] 92.8 fL Normal 83.5-101 [facility] Comment on above: Performed By: #### F ER, CEA, CBC, FE and TIBC, CMP #### [address] Mean Corpuscular HGB Conc 33.3 g/dL Normal 32.5-35.6 [facility] Comment on above: Performed By: #### F ER, CEA, CBC, FE and TIBC, CMP #### [address] Monocytes (Bld) [#/Vol] 0.5 10*3/uL Normal 0.0-0.8 [facility] Comment on above: Performed By: #### F ER, CEA, CBC, FE and TIBC, CMP #### [address] Monocytes/100 WBC (Bld) 7.9 % Normal . [facility] Comment on above: Performed By: #### F ER, CEA, CBC, FE and TIBC, CMP #### [address] Neutrophils (Bld) [#/Vol] 4.6 10*3/uL Normal 1.8-7.7 [facility] Comment on above: Performed By: #### F ER, CEA, CBC, FE and TIBC, CMP #### [address] Neutrophils/100 WBC (Bld) 65.9 % Normal . [facility] Comment on above: Performed By: #### F ER, CEA, CBC, FE and TIBC, CMP #### [address] NRBC% 0.1 /100{WBC} Normal 0-0.[address] [facility] Comment on above: Performed By: #### F ER, CEA, CBC, FE and TIBC, CMP #### [address] Platelet mean volume (Bld) [Entitic vol] 7.6 fL Normal 6.6-10.1 [facility] Comment on above: Performed By: #### F ER, CEA, CBC, FE and TIBC, CMP #### [address] Platelets (Bld) [#/Vol] 206 10*3/uL Normal 150-450 [facility] Comment on above: Performed By: #### F ER, CEA, CBC, FE and TIBC, CMP #### [address] RBC (Bld) [#/Vol] 3.96 10*6/uL Normal 3.90-5.60 [facility] Comment on above: Performed By: #### F ER, CEA, CBC, FE and TIBC, CMP #### [address] WBC (Bld) [#/Vol] 7.0 10*3/uL Normal 4.1-10.5 [facility] Comment on above: Performed By: #### F ER, CEA, CBC, FE and TIBC, CMP #### [address] Comprehensive Metabolic Pane arelis 08-30-2023 Albumin [Mass/Vol] 4.4 g/dL Normal 3.5-5.7 [facility] Comment on above: Performed By: #### F ER, CEA, CBC, FE and TIBC, CMP #### [address] Albumin/Globulin [Mass ratio] 1.8 {ratio} Normal [facility] Comment on above: Performed By: #### F ER, CEA, CBC, FE and TIBC, CMP #### [address] ALP [Catalytic activity/Vol] 114 U/L High 34-104 [facility] Comment on above: Performed By: #### F ER, CEA, CBC, FE and TIBC, CMP #### [address] ALT [Catalytic activity/Vol] 20 U/L Normal 7-52 [facility] Comment on above: Performed By: #### F ER, CEA, CBC, FE and TIBC, CMP #### [address] Anion gap [Moles/Vol] 10.0 mmol/L Normal 6.0-15.0 [facility] Comment on above: Performed By: #### F ER, CEA, CBC, FE and TIBC, CMP #### [address] AST [Catalytic activity/Vol] 23 U/L Normal 13-39 [facility] Comment on above: Performed By: #### F ER, CEA, CBC, FE and TIBC, CMP #### [address] Bilirubin [Mass/Vol] 0.8 mg/dL Normal 0.3-1.0 [facility] Comment on above: Performed By: #### F ER, CEA, CBC, FE and TIBC, CMP #### [address] Calcium [Mass/Vol] 9.7 mg/dL Normal 8.6-10.3 [facility] Comment on above: Performed By: #### F ER, CEA, CBC, FE and TIBC, CMP #### [place] [address] [place] Chloride [Moles/Vol] 102 mmol/L Normal 98-107 [facility] Comment on above: Performed By: #### F ER, CEA, CBC, FE and TIBC, CMP #### [facility] [address] CO2 [Moles/Vol] 35.5 mmol/L High 21.0-31.[address] [facility] Comment on above: Performed By: #### F ER, CEA, CBC, FE and TIBC, CMP #### [facility] [address] Creatinine [Mass/Vol] 2.29 mg/dL High 0.70-1.30 [facility] Comment on above: Performed By: #### F ER, CEA, CBC, FE and TIBC, CMP #### [address] Creatinine Clr Calc Pharmacy 30.81 Normal [facility] Comment on above: Performed By: #### F ER, CEA, CBC, FE and TIBC, CMP #### [address] GFR/1.73 sq M.predicted MDRD (S/P/Bld) [Vol rate/Area] 27.976 mL/min/{1.73_m2} Normal [facility] Comment on above: Performed By: #### F ER, CEA, CBC, FE and TIBC, CMP #### [address] Globulin (S) [Mass/Vol] 2.5 g/dL Normal T [facility] Comment on above: Performed By: #### F ER, CEA, CBC, FE and TIBC, CMP #### [facility] [address] Glucose [Mass/Vol] 111 mg/dL High 70-100 [facility] Comment on above: Result Comment: [place] Glucose Reference Range is dependent on time and content of last meal. Glucose of more than 200 mg/dL in a nonstressed, ambulatory subject supports the diagnosis of Diabetes Mellitus. ADA recommended reference range Performed By: #### F ER, CEA, CBC, FE and TIBC, CMP #### [facility] [address] Potassium [Moles/Vol] 4.5 mmol/L Normal 3.5-5.1 [facility] Comment on above: Performed By: #### F ER, CEA, CBC, FE and TIBC, CMP #### [facility] [address] Protein [Mass/Vol] 6.9 g/dL Normal 6.4-8.9 [facility] Comment on above: Performed By: #### F ER, CEA, CBC, FE and TIBC, CMP #### [facility] [address] Sodium [Moles/Vol] 143 mmol/L Normal 136-145 [facility] Comment on above: Performed By: #### F ER, CEA, CBC, FE and TIBC, CMP #### [facility] [address] Urea nitrogen [Mass/Vol] 51 mg/dL High 7-25 [facility] Comment on above: Performed By: #### F ER, CEA, CBC, FE and TIBC, CMP #### [facility] [address] Creatinine [Mass/volume] in Serum or PlasmaOrdered By: Leigha Nelson on 08-30-2023 Creatinine [Mass/Vol] 2.29 mg/dL 0.70-1.30 [facility] Eosinophils Auto (Bld) [#/Vo l]Ordered By: Leigha Nelson on 08-30-2023 Eosinophils (Bld) [#/Vol] 0.3 10*3/uL 0.0-0.[address] [facility] Eosinophils/100 WBC Auto (Bl d)Ordered By: Leigha Nelson on 08-30-2023 Eosinophils/100 WBC (Bld) 3.8 % . [facility] Erythrocyte distribution wid th Auto (RBC) [Ratio]Ordered By: Leigha Nelson on 08-30-2023 Erythrocyte distribution width (RBC) [Ratio] 14.8 % 12.0-14.[address] [facility] Ferritinon 08-30-2023 Ferritin [Mass/Vol] 239.3 ng/mL Normal 23.9-336.2 [facility] Comment on above: Result Comment: PERF ORMED BY: [facility] [address] [place] [address] PATHOLOGIST COLLEGE TEACHER TRU UMANZOR M.D. Performed By: #### F ER, CEA, CBC, FE and TIBC, CMP #### [facility] [address] Ferritin [Mass/volume] in Se rum or PlasmaOrdered By: Leigha Nelson on 08-30-2023 Ferritin [Mass/Vol] 239.3 ng/mL 23.9-336.2 [facility] Globulin Calc (S) [Mass/Vol] Ordered By: Leigha Nelson on 08-30-2023 Globulin (S) [Mass/Vol] 2.5 g/dL [facility] Glucose [Mass/volume] in Ser um or PlasmaOrdered By: Leigha Nelson on 08-30-2023 Glucose [Mass/Vol] 111 mg/dL 70-100 [facility] Comment on above: ADA recommended refe rence rangeRandom Glucose Reference Range is dependent on time and content of last meal. Glucose of more than 200 mg/dL in a nonstressed, ambulatory subject supports the diagnosis of Diabetes Mellitus. Hematocrit Auto (Bld) [Volum e fraction]Ordered By: Leigha Nelson on 08-30-2023 Hematocrit (Bld) [Volume fraction] 36.8 % 38.8-50.[address] [facility] Hemoglobin [Mass/volume] in BloodOrdered By: Leigha Nelson on 08-30-2023 Hemoglobin (Bld) [Mass/Vol] 12.3 g/dL 13.0-17.[address] [facility] Iron [Mass/volume] in Serum or PlasmaOrdered By: Leigha Nelson on 08-30-2023 Iron [Mass/Vol] 84 ug/dL 50-[address] [facility] Iron and TIBC Profileon 08-16 % Iron Saturation 29.0 % Normal 20-50 [facility] Comment on above: Performed By: #### F ER, CEA, CBC, FE and TIBC, CMP #### [facility] [address] [place] [id number] [place] Iron [Mass/Vol] 84 ug/dL Normal 50-212 [facility] Comment on above: Performed By: #### F ER, CEA, CBC, FE and TIBC, CMP #### [facility] [address] [place] [id number] [facility] Total Iron Binding Capacity 290 ug/dL Normal 255-450 [facility] Comment on above: Performed By: #### F ER, CEA, CBC, FE and TIBC, CMP #### [facility] [address] [place] [id number] [place] Transferrin [Mass/Vol] 207 mg/dL Normal 203-362 [facility] Comment on above: Performed By: #### F ER, CEA, CBC, FE and TIBC, CMP #### [facility] [address] [place] [id number] [facility] Iron binding capacity [Mass/ volume] in Serum or PlasmaOrdered By: Leigha Nelson on 08-30-2023 Iron binding capacity [Mass/Vol] 290 ug/dL 255-[address] [facility] Iron saturation [Mass Fracti on] in Serum or PlasmaOrdered By: Leigha Nelson on 08-30-2023 Iron saturation [Mass fraction] 29.0 % 20-[address] [facility] Leukocytes [#/volume] correc bonnie for nucleated erythrocytes in Blood by Automated counOrdered By: Leigha Nelson on 08-30-2023 WBC corrected for nucl RBC Auto (Bld) [#/Vol] 7.0 10*3/uL 4.1-10.[address] [facility] Lymphocytes Auto (Bld) [#/Vo l]Ordered By: Leigha Nelson on 08-30-2023 Lymphocytes (Bld) [#/Vol] 1.5 10*3/uL 1.00-4.[address] [facility] Lymphocytes/100 WBC Auto (Bl d)Ordered By: Leigha Nelson on 08-30-2023 Lymphocytes/100 WBC (Bld) 21.9 % . [facility] MCH Auto (RBC) [Entitic mass ]Ordered By: Leigha Nelson on 08-30-2023 MCH (RBC) [Entitic mass] 30.9 pg 27.5-35.[address] [facility] MCHC Auto (RBC) [Mass/Vol]Or dered By: Leigha Nelson on 08-30-2023 MCHC (RBC) [Mass/Vol] 33.3 g/dL 32.5-35.6 [facility] MCV Auto (RBC) [Entitic vol] Ordered By: Leigha Nelson on 08-30-2023 MCV (RBC) [Entitic vol] 92.8 fL 83.5-101 F [facility] Monocytes Auto (Bld) [#/Vol] Ordered By: Leigha Nelson on 08-30-2023 Monocytes (Bld) [#/Vol] 0.5 10*3/uL 0.0-0.[address] [facility] Monocytes/100 WBC Auto (Bld) Ordered By: Leigha Nelson on 08-30-2023 Monocytes/100 WBC (Bld) 7.9 % . F [facility] Neutrophils Auto (Bld) [#/Vo l]Ordered By: Leigha Nelson on 08-30-2023 Neutrophils (Bld) [#/Vol] 4.6 10*3/uL 1.8-7.[address] [facility] Neutrophils/100 WBC Auto (Bl d)Ordered By: Leigha Nelson on 08-30-2023 Neutrophils/100 WBC (Bld) 65.9 % . [facility] No Panel InformationOrdered By: Leigha Nelson on 08-30-2023 Estimated GFR (CKD-EPI) 27.976 mL/Min [facility] Creatinine Clearance (Chem 30.[address] [facility] Nucleated erythrocytes [Pres ence] in Blood by Automated countOrdered By: Leigha Nelson on 08-30-2023 Nucleated RBC Auto Ql (Bld) 0.1 /100{WBC} 0-0.[address] [facility] Platelet mean volume Auto (B ld) [Entitic vol]Ordered By: Leigha Nelson on 08-30-2023 Platelet mean volume (Bld) [Entitic vol] 7.6 fL 6.6-10.[address] [facility] Platelets Auto (Bld) [#/Vol] Ordered By: Leigha Nelson on 08-30-2023 Platelets (Bld) [#/Vol] 206 10*3/uL 150-[address] [facility] Potassium [Moles/volume] in Serum or PlasmaOrdered By: Leigha Nelson on 08-30-2023 Potassium [Moles/Vol] 4.5 mmol/L 3.5-5.1 [facility] Protein [Mass/volume] in Ser um or PlasmaOrdered By: Leigha Nelson on 08-30-2023 Protein [Mass/Vol] 6.9 g/dL 6.4-8.9 [facility] RBC Auto (Bld) [#/Vol]Ordere d By: Leigha Nelson on 08-30-2023 RBC (Bld) [#/Vol] 3.96 10*6/uL 3.90-5.60 [facility] Serum or plasma albumin/glob ulin mass ratioOrdered By: Leigha Nelson on 08-30-2023 Albumin/Globulin [Mass ratio] 1.8 {ratio} [facility] Serum or plasma anion gap de terminationOrdered By: Leigha Nelson on 08-30-2023 Anion gap [Moles/Vol] 10.0 mmol/L 6.0-15.0 [facility] Serum or plasma carcinoembry onic antigen measurement (mass/volume)Ordered By: Leigha Nelson on 08-30-2023 Carcinoembryonic Ag [Mass/Vol] 2.1 ng/mL 0.0-3.[address] [facility] Sodium [Moles/volume] in Ser um or PlasmaOrdered By: Leigha Nelson on 08-30-2023 Sodium [Moles/Vol] 143 mmol/L 136-145 [facility] Transferrin [Mass/volume] in Serum or PlasmaOrdered By: Leigha Nelson on 08-30-2023 Transferrin [Mass/Vol] 207 mg/dL 203-362 [facility] Urea nitrogen [Mass/volume] in Serum or PlasmaOrdered By: Leigha Nelson on 08-30-2023 Urea nitrogen [Mass/Vol] 51 mg/dL 7-[address] [facility] WBC Auto (Bld) [#/Vol]Candice d By: Leigha Nelson on 08-30-2023 WBC (Bld) [#/Vol] 7.0 10*3/uL 4.1-10.5 [facility] Follow-Upon 06-30-2023 Follow-Up [id number] Nas Ren 1940 M Date Provider Department Center 06/30/2023 [id number] SONG [facility] [employer] [facility] Family History Problem Relation Age of Onset Diabetes Mother Heart disease Father Glaucoma Brother Diabetes Maternal Grandmother Clotting disorder Other Family Status - Relation Status Age at Mother Father Brother Maternal Grandmother Other Level of Service:21792 [place] OFFICE/OUTPATIENT ESTABLISHED MOD MDM 30-39 MIN Normal [facility] CT abdomen pelvis wo conon 0 02-28-2023 CT abdomen pelvis wo [place] [address] CT Scan Report Signed Patient: Nas Ren MR#: [id number] 24 : 1940 Acct:[id number] Age/Sex: 82 / M ADM Date: 02/28/23 Loc: XT Room: Type: [facility] Attending Dr: Chivo Keller II DO Copies to: Chivo Keller II, DO Ordering Provider: Chivo Keller II, DO Date of Service: 02/28/23 CT/CT abdomen pelvis wo con: surveilance ([id number]) CT/CT chest wo con: surveilance CT CHEST, [...] of iterative reconstruction technique. FINDINGS: CT chest: Mediastinum:Pacemak er device is in place. Cardiomegaly. No pleural effusion. Thoracic aorta is normal in caliber. Pulmonary trunk appears nondilated. Calcified mediastinal and left hilar lymph nodes. The esophagus is grossly unremarkable. Lungs:Emphysematous changes. Mild bibasilar atelectasis/scarrin g. No consolidation, pneumothorax or pleural effusion. 1 [...] hemicolectomy.[ Pelvis:[Urinary bladder is grossly unremarkable. Prostatomegaly.] Peritoneum/Retroper itoneum:No free air, free fluid or lymphadenopathy.[ Abd wall/Bones:Abdomina l wall demonstrates no acute findings. Osseous structures demonstrate degenerative change. No aggressive bony lesions.[ CT/CT chest wo con IMPRESSION: 1. No significant change in chest findings compared to the prior study. 2. No acute process seen within the abdomen or pelvis. No evidence of metastatic disease or tumor recurrence. Impression dictated by: Sotero Scott Jr., D.OKeo02/28/2023 2:57 PM Dictation Location: [place] [address] Transcribed By: [facility] 02/28/23 1457 Dictated By: Sotero Scott Jr, DO 02/28/23 1447 Signed By: 02/28/23 1457 Normal [facility] Complete Blood Count Auto Di ffon 02-28-2023 Basophils (Bld) [#/Vol] 0.1 10*3/uL Normal 0.0-0.2 [facility] Comment on above: Result Comment: PERF ORMED BY: [facility] [address] [place] [address] PATHOLOGIST [employer]LEGE TEACHER TRU UMANZOR M.D. Performed By: #### C MP, FE and TIBC, CBC, CEA, TONY ####[facility] [id number] [place] [address] [facility] Basophils/100 WBC (Bld) 0.6 % Normal . T mela [facility] Comment on above: Performed By: #### C MP, FE and TIBC, CBC, CEA, TONY ####[address] Eosinophils (Bld) [#/Vol] 0.3 10*3/uL Normal 0.0-0.45 [facility] Comment on above: Performed By: #### C MP, FE and TIBC, CBC, CEA, TONY ####[address] Eosinophils/100 WBC (Bld) 3.6 % Normal . [facility] Comment on above: Performed By: #### C MP, FE and TIBC, CBC, CEA, TONY ####[address] Erythrocyte distribution width (RBC) [Ratio] 14.7 % Normal 12.0-14.8 [facility] Comment on above: Performed By: #### C MP, FE and TIBC, CBC, CEA, TONY ####[address] Hematocrit (Bld) [Volume fraction] 38.1 % Low 38.8-50.0 [facility] Comment on above: Performed By: #### C MP, FE and TIBC, CBC, CEA, TONY ####[address] Hemoglobin (Bld) [Mass/Vol] 12.5 g/dL Low 13.0-17.0 [facility] Comment on above: Performed By: #### C MP, FE and TIBC, CBC, CEA, TONY ####[address] Lymphocytes (Bld) [#/Vol] 1.7 10*3/uL Normal 1.00-4.8 [facility] Comment on above: Performed By: #### C MP, FE and TIBC, CBC, CEA, TONY ####[address] Lymphocytes/100 WBC (Bld) 17.9 % Normal . [facility] Comment on above: Performed By: #### C MP, FE and TIBC, CBC, CEA, TONY ####[address] MCH (RBC) [Entitic mass] 30.7 pg Normal 27.5-35.2 [facility] Comment on above: Performed By: #### C MP, FE and TIBC, CBC, CEA, TONY ####[address] MCV (RBC) [Entitic vol] 93.2 fL Normal 83.5-101 T [facility] Comment on above: Performed By: #### C MP, FE and TIBC, CBC, CEA, TONY ####[address] Mean Corpuscular HGB Conc 33.0 g/dL Normal 32.5-35.6 [facility] Comment on above: Performed By: #### C MP, FE and TIBC, CBC, CEA, TONY ####[address] Monocytes (Bld) [#/Vol] 0.9 10*3/uL High 0.0-0.8 [facility] Comment on above: Performed By: #### C MP, FE and TIBC, CBC, CEA, TONY ####[address] Monocytes/100 WBC (Bld) 9.6 % Normal . [facility] Comment on above: Performed By: #### C MP, FE and TIBC, CBC, CEA, TONY ####[address] Neutrophils (Bld) [#/Vol] 6.6 10*3/uL Normal 1.8-7.7 [facility] Comment on above: Performed By: #### C MP, FE and TIBC, CBC, CEA, TONY ####[address] Neutrophils/100 WBC (Bld) 68.3 % Normal . [facility] Comment on above: Performed By: #### C MP, FE and TIBC, CBC, CEA, TONY ####[address] NRBC% 0.3 /100{WBC} Normal 0-0.[address] [facility] Comment on above: Performed By: #### C MP, FE and TIBC, CBC, CEA, TONY ####[address] Platelet mean volume (Bld) [Entitic vol] 7.6 fL Normal 6.6-10.1 [facility] Comment on above: Performed By: #### C MP, FE and TIBC, CBC, CEA, TONY ####[address] Platelets (Bld) [#/Vol] 215 10*3/uL Normal 150-450 [facility] Comment on above: Performed By: #### C MP, FE and TIBC, CBC, CEA, TONY ####[address] RBC (Bld) [#/Vol] 4.08 10*6/uL Normal 3.90-5.60 [facility] Comment on above: Performed By: #### C MP, FE and TIBC, CBC, CEA, TONY ####[address] WBC (Bld) [#/Vol] 9.6 10*3/uL Normal 4.1-10.5 [facility] Comment on above: Performed By: #### C MP, FE and TIBC, CBC, CEA, TONY ####[address] Comprehensive Metabolic Pane arelis 02-28-2023 Albumin [Mass/Vol] 4.1 g/dL Normal 3.5-5.7 [facility] Comment on above: Performed By: #### C MP, FE and TIBC, CBC, CEA, TONY ####[address] Albumin/Globulin [Mass ratio] 1.7 {ratio} Normal [facility] Comment on above: Performed By: #### C MP, FE and TIBC, CBC, CEA, TONY ####[address] ALP [Catalytic activity/Vol] 118 U/L High 34-104 [facility] Comment on above: Performed By: #### C MP, FE and TIBC, CBC, CEA, TONY ####[address] ALT [Catalytic activity/Vol] 31 U/L Normal 7-52 [facility] Comment on above: Performed By: #### C MP, FE and TIBC, CBC, CEA, TONY ####[address] Anion gap [Moles/Vol] 13.3 mmol/L Normal 6.0-15.0 [facility] Comment on above: Performed By: #### C MP, FE and TIBC, CBC, CEA, TONY ####[address] AST [Catalytic activity/Vol] 23 U/L Normal 13-39 [facility] Comment on above: Performed By: #### C MP, FE and TIBC, CBC, CEA, TONY ####[address] Bilirubin [Mass/Vol] 0.7 mg/dL Normal 0.3-1.0 [facility] Comment on above: Performed By: #### C MP, FE and TIBC, CBC, CEA, TONY ####[address] Calcium [Mass/Vol] 8.8 mg/dL Normal 8.6-10.3 [facility] Comment on above: Performed By: #### C MP, FE and TIBC, CBC, CEA, TONY ####[address] Chloride [Moles/Vol] 104 mmol/L Normal 98-107 [facility] Comment on above: Performed By: #### C MP, FE and TIBC, CBC, CEA, TONY ####[address] CO2 [Moles/Vol] 29.0 mmol/L Normal 21.0-31.[address] [facility] Comment on above: Performed By: #### C MP, FE and TIBC, CBC, CEA, TONY ####[address] Creatinine [Mass/Vol] 2.25 mg/dL High 0.70-1.30 [facility] Comment on above: Performed By: #### C MP, FE and TIBC, CBC, CEA, TONY ####[address] Creatinine Clr Calc Pharmacy 31.39 Normal [facility] Comment on above: Performed By: #### C MP, FE and TIBC, CBC, CEA, TONY ####[address] GFR/1.73 sq M.predicted MDRD (S/P/Bld) [Vol rate/Area] 28.753 mL/min/{1.73_m2} Normal [facility] Comment on above: Performed By: #### C MP, FE and TIBC, CBC, CEA, TONY ####[address] Globulin (S) [Mass/Vol] 2.4 g/dL Normal T [facility] Comment on above: Performed By: #### C MP, FE and TIBC, CBC, CEA, TONY ####[address] Glucose [Mass/Vol] 114 mg/dL High 70-100 [facility] Comment on above: Result Comment: [place] Glucose Reference Range is dependent on time and content of last meal. Glucose of more than 200 mg/dL in a nonstressed, ambulatory subject supports the diagnosis of Diabetes Mellitus. ADA recommended reference range Performed By: #### C MP, FE and TIBC, CBC, CEA, TONY ####[address] Potassium [Moles/Vol] 4.3 mmol/L Normal 3.5-5.1 [facility] Comment on above: Performed By: #### C MP, FE and TIBC, CBC, CEA, TONY ####[address] Protein [Mass/Vol] 6.5 g/dL Normal 6.4-8.9 [facility] Comment on above: Performed By: #### C MP, FE and TIBC, CBC, CEA, TONY ####[address] Sodium [Moles/Vol] 142 mmol/L Normal 136-145 [facility] Comment on above: Performed By: #### C MP, FE and TIBC, CBC, CEA, TONY ####[address] Urea nitrogen [Mass/Vol] 45 mg/dL High 7-25 [facility] Comment on above: Performed By: #### C MP, FE and TIBC, CBC, CEA, TONY ####[address] ECHOCARDIO M/2D COMPLETEon 0 02-28-2023 ECHOCARDIO M/2D COMPLETE Patient: NAS REN Exam Date: 02/28/2023 : 1940 Gender:M 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 on 02/28/2023 at 20:26 Normal [facility] Ferritinon 02-28-2023 Ferritin [Mass/Vol] 236.7 ng/mL Normal 23.9-336.2 [facility] Comment on above: Result Comment: PERF ORMED BY: [facility] [address] [facility] [place] [address] PATHOLOGIST COLLEGE TEACHER TRU UMANZOR M.D. Performed By: #### C MP, FE and TIBC, CBC, CEA, TONY ####[address] [address] [facility] Iron and TIBC Profileon 02-13 % Iron Saturation 19.9 % Low 20-50 [facility] Comment on above: Performed By: #### C MP, FE and TIBC, CBC, CEA, TONY ####[place] [id number] [place] [address] [facility] Iron [Mass/Vol] 56 ug/dL Normal 50-212 [facility] Comment on above: Performed By: #### C MP, FE and TIBC, CBC, CEA, TONY ####[place] [id number] [facility] Total Iron Binding Capacity 281 ug/dL Normal 255-450 [facility] Comment on above: Performed By: #### C MP, FE and TIBC, CBC, CEA, TONY ####[facility] [id number] Transferrin [Mass/Vol] 201 mg/dL Low 203-[address] [facility] Comment on above: Performed By: #### C MP, FE and TIBC, CBC, CEA, TNOY ####[facility] [id number] [address] T3, TOTAL (TRIIODOTHYRONINE) on 02-16-2023 T3, TOTAL 83 ng/dL Normal 71-180 [facility] Comment on above: Performed By: #### F T4, PSASC #### [facility] [address] [place] [address] Dr. Benito Schwartz FREE T4on 02-15-2023 Free T4 [Mass/Vol] 1.03 ng/dL Normal 0.76-1.[address] [facility] Comment on above: Performed By: #### F T4 #### [facility] [address] [place] [address] Dr. Benito Schwartz LIPID PROFILEon 02-15-2023 CHOL-HDL RATIO NORM SEE BELOW Normal [facility] Comment on above: Result Comment: 3.3 - 4.4 LOW RISK 4.4 - 7.1 AVERAGE RISK 7.1 - 11.0 MODERATE RISK >11.0 HIGH RISK Performed By: #### T SH, FT3, BMP #### [facility] [address] [place] [address] [address] Benito Schwartz Cholesterol [Mass/Vol] 164 mg/dL Normal <=200 Th [facility] Comment on above: Performed By: #### T SH, FT3, BMP #### [facility] [address] [place] [address] Dr. Benito Schwartz Cholesterol in HDL [Mass/Vol] 41 mg/dL Normal 40-60 [facility] Comment on above: Performed By: #### T SH, FT3, BMP #### [facility] [address] [place] [address] [address] Benito Schwartz Cholesterol in LDL [Mass/Vol] 104.2 mg/dL Normal [facility] Comment on above: Performed By: #### T SH, FT3, BMP #### [facility] [address] [place] [address] [address] Benito Schwartz Cholesterol.total/Choles terol in HDL [Mass ratio] 4.0 {ratio} Normal [facility] Comment on above: Performed By: #### T SH, FT3, BMP #### [facility] [address] [place] [address] [address] Benito Schwartz HDL NORMAL > or = 60 mg/dl - LOW CARDIOVASCULAR RISK <40 mg/dl - HIGH CARDIOVASCULAR RISK Normal [facility] Comment on above: Performed By: #### T SH, FT3, BMP #### [facility] [address] [place] [address] Dr. Benito Schwartz LDL CALC NORMAL SEE BELOW Normal [facility] Comment on above: Result Comment: <100 mg/dl OPTIMAL 100 - 129 mg/dl NEAR OR ABOVE OPTIMAL 130 - 159 mg/dl BORDERLINE HIGH 160 - 189 mg/dl HIGH >190 mg/dl VERY HIGH Performed By: #### T SH, FT3, BMP #### [facility] [address] [place] [address] Dr. Benito Schwartz Triglyceride [Mass/Vol] 94 mg/dL Normal <=150 [facility] Comment on above: Performed By: #### T SH, FT3, BMP #### [facility] [address] [place] [address] Dr. Benito Schwartz VLDL CALC 18.8 mg/dL Normal [facility] Comment on above: Performed By: #### T SH, FT3, BMP #### [facility] [address] [place] [address] [address] Benito Schwartz TSHon 02-15-2023 TSH 22.732 uIU/mL Critically high 0.358-3.740 [facility] Comment on above: Performed By: #### F T4, PSASC #### [facility] [address] [place] [address] [address] Benito Schwartz PTH INTACTon 01-03-2023 PTH, Intact 46 pg/mL Normal 15-65 [facility] Comment on above: Performed By: #### U RTPCR #### [facility] [address] [place] [address] Dr. Benito Schwartz T3, TOTAL (TRIIODOTHYRONINE) on 01-03-2023 T3, TOTAL 77 ng/dL Normal 71-180 [facility] Comment on above: Performed By: #### T SH, FT3, BMP #### [facility] [address] [place] [address] Dr. Benito Schwartz CBC AUTO DIFFon 01-02-2023 BASO # 0.0 103/ul Normal 0.0-0.1 [facility] Comment on above: Performed By: #### C BC #### [facility] [address] [place] [address] Dr. Benito Schwartz Basophils/100 WBC (Bld) 0.4 % Normal 0.2-2.0 [facility] Comment on above: Performed By: #### C BC #### [facility] [address] [place] [address] Dr. Benito Schwartz EO # 0.4 103/ul Normal 0.0-0.7 [facility] Comment on above: Performed By: #### C BC #### [facility] [address] [place] [address] Dr. Benito Schwartz Eosinophils/100 WBC (Bld) 5.1 % Normal 0.9-7.0 [facility] Comment on above: Performed By: #### C BC #### [facility] [address] [place] [address] Dr. Benito Schwartz Erythrocyte distribution width (RBC) [Ratio] 13.2 % Normal 11.0-15.0 [facility] Comment on above: Performed By: #### C BC #### [facility] [address] [place] [address] Dr. Benito Schwartz Hematocrit (Bld) [Volume fraction] 37.4 % Critically low 42.0-54.0 [facility] Comment on above: Performed By: #### C BC #### [facility] [address] [place] [address] Dr. Benito Schwartz Hemoglobin (Bld) [Mass/Vol] 12.4 g/dL Critically low 14.0-18.0 [facility] Comment on above: Performed By: #### C BC #### [facility] [address] [place] [address] Dr. Benito Schwartz IG # 0.03 10e3/ul Normal 0.00-0.03 [facility] Comment on above: Performed By: #### C BC #### [facility] [address] [place] [address] Dr. Benito Schwartz IG % 0.4 % Normal 0.0-0.5 [facility] Comment on above: Performed By: #### C BC #### [facility] [address] [place] [address] Dr. Benito Schwartz LYMPH # 1.6 103/ul Normal 1.2-3.8 [facility] Comment on above: Performed By: #### C BC #### [facility] [address] [place] [address] Dr. Benito Schwartz Lymphocytes/100 WBC (Bld) 20.3 % Critically low 20.5-60.0 [facility] Comment on above: Performed By: #### C BC #### [facility] [address] [place] [address] Dr. Benito Schwartz MANUAL DIFF REQ NO Normal [facility] Comment on above: Performed By: #### C BC #### [facility] [address] [place] [address] Dr. Benito Schwartz MCH (RBC) [Entitic mass] 31.7 pg Normal 25.9-34.0 [facility] Comment on above: Performed By: #### C BC #### [facility] [address] [place] [address] Dr. Benito Schwartz MCHC (RBC) [Mass/Vol] 33.2 g/dL Normal 29.9-35.2 [facility] Comment on above: Performed By: #### C BC #### [facility] [address] [place] [address] Dr. Benito Schwartz MCV (RBC) [Entitic vol] 95.7 fL Critically high 80.0-94 .0 [facility] Comment on above: Performed By: #### C BC #### [facility] [address] [place] [address] Dr. Benito Schwratz MONO # 0.7 103/ul Normal 0.3-0.8 [facility] Comment on above: Performed By: #### C BC #### [facility] [address] [place] [address] Dr. Benito Schwartz Monocytes/100 WBC (Bld) 8.6 % Normal 1.7-12.0 [facility] Comment on above: Performed By: #### C BC #### [facility] [address] [place] [address] Dr. Benito Schwartz NEUT # 5.3 103/ul Normal 1.4-6.5 [facility] Comment on above: Performed By: #### C BC #### [facility] [address] [place] [address] Dr. Benito Schwartz Neutrophils/100 WBC (Bld) 65.2 % Normal 43.0-75.0 [facility] Comment on above: Performed By: #### C BC #### [facility] [address] [place] [address] Dr. Benito Schwartz Platelet mean volume (Bld) [Entitic vol] 9.0 fL Critically low 9.5-13.5 [facility] Comment on above: Performed By: #### C BC #### [facility] [address] [place] [address] Dr. Benito Schwartz PLT 209 103/ul Normal 150-450 [facility] Comment on above: Performed By: #### C BC #### [facility] [address] [place], [place] [id number] Dr. Benito Schwartz RBC 3.91 106/ul Critically low 4.70-6.10 [facility] Comment on above: Performed By: #### C BC #### [facility] [address] [place] [address] Dr. Benito Schwartz WBC 8.1 103/ul Normal 4.0-11.0 [facility] Comment on above: Performed By: #### C BC #### [facility] [address] [address] [address] Benito Schwartz FREE T4on 01-02-2023 Free T4 [Mass/Vol] 0.87 ng/dL Normal 0.76-1.46 [facility] Comment on above: Performed By: #### F T4, PSASC #### [facility] [address] [address] [address] Benito Schwartz GLYCOHEMOGLOBIN A1Con 2022 ADA RECOMMENDATION SEE BELOW Normal [facility] Comment on above: Result Comment: ADA RECOMMENDED LIMIT 4.0 - 6.0 ADA THERAPEUTIC TARGET < 7.0 ACTION SUGGESTED > 7.0 Performed By: #### C BC #### [facility] [address] [place] [address] Dr. Benito Schwartz Glucose [Mass/Vol] 126 mg/dL Normal [facility] Comment on above: Performed By: #### C BC #### [facility] [address] [place] [address] Dr. Benito Schwartz HbA1c (Bld) [Mass fraction] 6.0 % Normal 4.5-6.2 [facility] Comment on above: Performed By: #### C BC #### [facility] [address] [place] [address] Dr. Benito Schwartz MAGNESIUMon 01-02-2023 Magnesium [Mass/Vol] 2.3 mg/dL Normal 1.8-2.4 [facility] Comment on above: Performed By: #### U RTPCR #### [facility] [address] [place] [address] Dr. Benito Schwartz PHOSPHORUSon 01-02-2023 Phosphate [Mass/Vol] 4.1 mg/dL Normal 2.6-4.7 [facility] Comment on above: Performed By: #### U RTPCR #### [facility] [address] [place] [address] Dr. Benito Schwartz PROF CHEM 8 (BAS METB)on Anion gap [Moles/Vol] 11.1 mmol/L Normal Th [facility] Comment on above: Performed By: #### U RTPCR #### [facility] [address] [address] [address] Benito Schwartz Calcium [Mass/Vol] 8.9 mg/dL Normal 8.5-10.[address] [facility] Comment on above: Performed By: #### U RTPCR #### [facility] [address] [place] [address] Dr. Benito Schwartz Chloride [Moles/Vol] 100 mmol/L Normal 98-107 [facility] Comment on above: Performed By: #### U RTPCR #### [facility] [address] [place] [address] Dr. Benito Schwartz CO2 [Moles/Vol] 33.2 mmol/L Critically high 21.0-32.0 [facility] Comment on above: Performed By: #### U RTPCR #### [facility] [address] [place] [address] Dr. Benito Schwartz Creatinine [Mass/Vol] 2.31 mg/dL Critically high 0.70-1.30 [facility] Comment on above: Performed By: #### U RTPCR #### [facility] [address] [place] [address] Dr. Benito Schwartz EGFR-AF INDONESIAN 33 mL/min/1.73m2 Critically low >=60 [facility] Comment on above: Performed By: #### U RTPCR #### [facility] [address] [place] [address] Dr. Benito Schwartz EGFR-NON AF INDONESIAN 27 mL/min/1.73m2 Critically low >=60 [facility] Comment on above: Performed By: #### U RTPCR #### [facility] [address] [place] [address] Dr. Benito Schwartz Glucose [Mass/Vol] 112 mg/dL Critically high 74-106 [facility] Comment on above: Performed By: #### U RTPCR #### [facility] [address] [place] [address] Dr. Benito Schwartz Potassium [Moles/Vol] 4.3 mmol/L Normal 3.5-5.1 [facility] Comment on above: Performed By: #### U RTPCR #### [facility] [address] [place] [address] Dr. Benito Schwartz Sodium [Moles/Vol] 140 mmol/L Normal 136-[address] [facility] Comment on above: Performed By: #### U RTPCR #### [facility] [address] [place] [address] Dr. Benito Schwartz Urea nitrogen [Mass/Vol] 51.0 mg/dL Critically high 7.0-18 .0 [facility] Comment on above: Performed By: #### U RTPCR #### [facility] [address] [place] [address] Dr. Benito Schwartz Urea nitrogen/Creatinine [Mass ratio] 22.1 mg/mg Normal [facility] Comment on above: Performed By: #### U RTPCR #### [facility] [address] [place] [address] Dr. Benito Schwartz TSHon 01-02-2023 TSH 27.692 uIU/mL Critically high 0.358-3.740 [facility] Comment on above: Performed By: #### C BC #### [facility] [address] [place] [address] Dr. Bentio Schwartz UA RANDOMon 01-02-2023 Bilirubin Ql (U) Negative Normal NEGATIVE [facility] Comment on above: Performed By: #### U RTPCR #### [facility] [address] [place] [address] Dr. Benito Schwartz Clarity (U) CLEAR Normal CLEAR [facility] Comment on above: Performed By: #### U RTPCR #### [facility] [address] [place] [address] Dr. Benito Schwartz Color (U) LT. YELLOW Normal YELLOW [facility] Comment on above: Performed By: #### U RTPCR #### [facility] [address] [place] [address] Dr. Benito Schwartz Glucose Ql (U) Negative Normal NEGATIVE [facility] Comment on above: Performed By: #### U RTPCR #### [facility] [address] [place] [address] Dr. Benito Schwartz Hemoglobin Ql (U) Negative Normal NEGATIVE [facility] Comment on above: Performed By: #### U RTPCR #### [facility] [address] [place] [address] Dr. Benito Schwartz Ketones Ql (U) Negative Normal NEGATIVE [facility] Comment on above: Performed By: #### U RTPCR #### [facility] [address] [place] [address] Dr. Benito Schwartz LEUKOCYTES Negative Normal NEGATIVE [facility] Comment on above: Performed By: #### U RTPCR #### [facility] [address] [place] [address] Dr. Benito Schwartz Nitrite Ql (U) Negative Normal NEGATIVE [facility] Comment on above: Performed By: #### U RTPCR #### [facility] [address] [place] [address] Dr. Benito Schwartz pH (U) 6.0 [pH] Normal 5-9 [facility] Comment on above: Performed By: #### U RTPCR #### [facility] [address] [place] [address] Dr. Benito Schwartz SPEC GRAVITY <=1.005 Abnormal 1.005-<=1.02 5 [facility] Comment on above: Performed By: #### U RTPCR #### [facility] [address] [place] [address] Dr. Benito Schwartz UA PROTEIN Negative Normal NEGATIVE/ TRACE [facility] Comment on above: Performed By: #### U RTPCR #### [facility] [address] [place] [address] Dr. Benito Schwartz Urobilinogen Qn (U) 0.2 {Jagruti'U}/dL Normal 0.2 - 1. 0 [facility] Comment on above: Performed By: #### U RTPCR #### [facility] [address] [place] [address] Dr. Benito Schwartz URINE T PROTEIN CREAT RATIOo n 01-02-2023 Protein (U) [Mass/Vol] 19.1 mg/dL Critically high <=12.0 [facility] Comment on above: Performed By: #### F T4, PSASC #### [facility] [address] [place] [address] Dr. Benito Schwartz UR PROT CREAT RAT 0.75 Normal [facility] Comment on above: Performed By: #### F T4, PSASC #### [facility] [address] [place] [address] Dr. Benito Schwartz URINE CREAT 25.63 mg/dL Normal 20.00-300.00 [facility] Comment on above: Performed By: #### F T4, PSASC #### [facility] [address] [place] [address] Dr. Benito Schwartz VITAMIN D 25 OHon 01-02-2023 VIT D 25-OH 86.8 ng/mL Normal [facility] Comment on above: Performed By: #### U RTPCR #### [facility] [address] [place] [address] Dr. Benito Schwartz VIT D RANGES SEE BELOW Normal [facility] Comment on above: Result Comment: <20 ng/mL Vit D deficient 20 - <30 ng/mL Vit D insufficient 30 - 100 ng/mL Vit D sufficient >100 ng/mL Potential Toxicity Performed By: #### U RTPCR #### [facility] [address] [place] [address] Dr. Benito Schwartz T3, TOTAL (TRIIODOTHYRONINE) on 11-17-2022 T3, TOTAL 82 ng/dL Normal 71-180 [facility] Comment on above: Performed By: #### V ITAD #### [facility] [address] [place] [address] Dr. Benito Schwartz FREE T4on 11-16-2022 Free T4 [Mass/Vol] 0.93 ng/dL Normal 0.76-1.[address] [facility] Comment on above: Performed By: #### C BC #### [facility] [address] [place] [address] Dr. Benito Schwartz TSHon 11-16-2022 TSH 31.189 uIU/mL Critically high 0.358-3.740 [facility] Comment on above: Performed By: #### F T4, PSASC #### [facility] [address] [place] [address] Dr. Benito Schwartz T3, TOTAL (TRIIODOTHYRONINE) on 10-04-2022 T3, TOTAL 43 ng/dL Critically low 71-180 [facility] Comment on above: Performed By: #### F T4, PSASC #### [facility] [address] [place] [address] Dr. Benito Schwartz FREE T4on 10-03-2022 Free T4 [Mass/Vol] 0.35 ng/dL Critically low 0.76-1.46 [facility] Comment on above: Performed By: #### F T4, PSASC #### [facility] [address] [place] [address] Dr. Benito Schwartz TSHon 10-03-2022 TSH 121.174 uIU/mL Critically high 0.358-3.740 [facility] Comment on above: Performed By: #### F T4, PSASC #### [facility] [address] [place] [address] Dr. Benito Schwartz MAGNESIUMon 09-22-2022 Magnesium [Mass/Vol] 2.5 mg/dL Critically high 1.8-2.4 [facility] Comment on above: Performed By: #### F T4 #### [facility] [address] [place] [address] Dr. Benito Schwartz PROF CHEM 8 (BAS METB)on Anion gap [Moles/Vol] 7.3 mmol/L Normal [facility] Comment on above: Performed By: #### F T4 #### [facility] [address] [place] [address] Dr. Benito Schwartz Calcium [Mass/Vol] 8.8 mg/dL Normal 8.5-10.[address] [facility] Comment on above: Performed By: #### F T4 #### [facility] [address] [place] [address] Dr. Benito Schwartz Chloride [Moles/Vol] 100 mmol/L Normal 98-107 [facility] Comment on above: Performed By: #### F T4 #### [facility] [address] [address] [address] Benito Schwartz CO2 [Moles/Vol] 33.7 mmol/L Critically high 21.0-32.0 [facility] Comment on above: Performed By: #### F T4 #### [facility] [address] [address] [address] Benito Schwartz Creatinine [Mass/Vol] 2.43 mg/dL Critically high 0.70-1.30 [facility] Comment on above: Performed By: #### F T4 #### [facility] [address] [place] [address] Dr. Benito Schwartz EGFR-AF INDONESIAN 31 mL/min/1.73m2 Critically low >=60 [facility] Comment on above: Performed By: #### F T4 #### [facility] [address] [place] [address] Dr. Benito Schwartz EGFR-NON AF INDONESIAN 26 mL/min/1.73m2 Critically low >=60 [facility] Comment on above: Performed By: #### F T4 #### [facility] [address] [place] [address] Dr. Benito Schwartz Glucose [Mass/Vol] 136 mg/dL Critically high 74-106 [facility] Comment on above: Performed By: #### F T4 #### [facility] [address] [address] [address] Benito Schwartz Potassium [Moles/Vol] 4.0 mmol/L Normal 3.5-5.1 [facility] Comment on above: Performed By: #### F T4 #### [facility] [address] [address] [address] Benito Schwartz Sodium [Moles/Vol] 137 mmol/L Normal 136-[address] [facility] Comment on above: Performed By: #### F T4 #### [facility] [address] [address] [address] Benito Schwartz Urea nitrogen [Mass/Vol] 47.0 mg/dL Critically high 7.0-18 .0 [facility] Comment on above: Performed By: #### F T4 #### [facility] [address] [place] [address] Dr. Benito Schwartz Urea nitrogen/Creatinine [Mass ratio] 19.3 mg/mg Normal [facility] Comment on above: Performed By: #### F T4 #### [facility] [address] [place] [address] Dr. Benito Schwartz PTH INTACTon 09-10-2022 PTH, Intact 36 pg/mL Normal 15-65 [facility] Comment on above: Performed By: #### F T4, PSASC #### [facility] [address] [place] [address] Dr. Benito Schwartz CBC AUTO DIFFon 09-09-2022 BASO # 0.0 103/ul Normal 0.0-0.1 [facility] Comment on above: Performed By: #### F T4, PSASC #### [facility] [address] [place] [address] Dr. Benito Schwartz Basophils/100 WBC (Bld) 0.5 % Normal 0.2-2.0 [facility] Comment on above: Performed By: #### F T4, PSASC #### [facility] [address] [place] [address] Dr. Benito Schwartz EO # 0.4 103/ul Normal 0.0-0.7 [facility] Comment on above: Performed By: #### F T4, PSASC #### [facility] [address] [place] [address] Dr. Benito Schwartz Eosinophils/100 WBC (Bld) 5.3 % Normal 0.9-7.0 [facility] Comment on above: Performed By: #### F T4, PSASC #### [facility] [address] [place] [address] Dr. Benito Schwartz Erythrocyte distribution width (RBC) [Ratio] 14.3 % Normal 11.0-15.0 [facility] Comment on above: Performed By: #### F T4, PSASC #### [facility] [address] [place] [address] Dr. Benito Schwartz Hematocrit (Bld) [Volume fraction] 36.9 % Critically low 42.0-54.0 [facility] Comment on above: Performed By: #### F T4, PSASC #### [facility] [address] [address] [address] Benito Schwartz Hemoglobin (Bld) [Mass/Vol] 12.4 g/dL Critically low 14.0-18.0 [facility] Comment on above: Performed By: #### F T4, PSASC #### [facility] [address] [address] [address] eBnito Schwartz IG # 0.04 10e3/ul Critically high 0.00-0.03 [facility] Comment on above: Performed By: #### F T4, PSASC #### [facility] [address] [place] [address] Dr. Benito Schwartz IG % 0.5 % Normal 0.0-0.5 [facility] Comment on above: Performed By: #### F T4, PSASC #### [facility] [address] [place] [address] Dr. Benito Schwartz LYMPH # 1.6 103/ul Normal 1.2-3.8 [facility] Comment on above: Performed By: #### F T4, PSASC #### [facility] [address] [address] [address] Benito Schwartz Lymphocytes/100 WBC (Bld) 22.2 % Normal 20.5-60.0 [facility] Comment on above: Performed By: #### F T4, PSASC #### [facility] [address] [address] [address] Benito Schwartz MANUAL DIFF REQ NO Normal [facility] Comment on above: Performed By: #### F T4, PSASC #### [facility] [address] [address] [address] Benito Schwartz MCH (RBC) [Entitic mass] 31.2 pg Normal 25.9-34.0 [facility] Comment on above: Performed By: #### F T4, PSASC #### [facility] [address] [place] [address] Dr. Benito Schwartz MCHC (RBC) [Mass/Vol] 33.6 g/dL Normal 29.9-35.2 [facility] Comment on above: Performed By: #### F T4, PSASC #### [facility] [address] [place] [address] Dr. Benito Schwartz MCV (RBC) [Entitic vol] 92.7 fL Normal 80.0-94.0 [facility] Comment on above: Performed By: #### F T4, PSASC #### [facility] [address] [place] [address] Dr. Benito Schwartz MONO # 0.5 103/ul Normal 0.3-0.8 [facility] Comment on above: Performed By: #### F T4, PSASC #### [facility] [address] [place] [address] Dr. Benito Schwartz Monocytes/100 WBC (Bld) 6.4 % Normal 1.7-12.0 [facility] Comment on above: Performed By: #### F T4, PSASC #### [facility] [address] [place] [address] Dr. Benito Schwartz NEUT # 4.8 103/ul Normal 1.4-6.5 [facility] Comment on above: Performed By: #### F T4, PSASC #### [facility] [address] [place] [address] Dr. Benito Schwartz Neutrophils/100 WBC (Bld) 65.1 % Normal 43.0-75.0 [facility] Comment on above: Performed By: #### F T4, PSASC #### [facility] [address] [place] [address] Dr. Benito Schwartz Platelet mean volume (Bld) [Entitic vol] 8.7 fL Critically low 9.5-13.5 [facility] Comment on above: Performed By: #### F T4, PSASC #### [facility] [address] [place] [address] Dr. Benito Schwartz PLT 206 103/ul Normal 150-450 [facility] Comment on above: Performed By: #### F T4, PSASC #### [place] [facility] [facility] [address] [address] [address] Benito Schwartz RBC 3.98 106/ul Critically low 4.70-6.10 [facility] Comment on above: Performed By: #### F T4, PSASC #### [facility] [address] [place] [address] Dr. Benito Schwartz WBC 7.4 103/ul Normal 4.0-11.0 [facility] Comment on above: Performed By: #### F T4, PSASC #### [facility] [address] [place] [address] Dr. Benito Schwartz MAGNESIUMon 09-09-2022 Magnesium [Mass/Vol] 2.1 mg/dL Normal 1.8-2.4 [facility] Comment on above: Performed By: #### B 12FOL, FETIBC #### [facility] [address] [place] [address] Dr. Benito Schwartz PHOSPHORUSon 09-09-2022 Phosphate [Mass/Vol] 3.2 mg/dL Normal 2.6-4.7 [facility] Comment on above: Performed By: #### B 12FOL, FETIBC #### [facility] [address] [place] [address] Dr. Benito Schwartz PROF CHEM 8 (BAS METB)on Anion gap [Moles/Vol] 10.1 mmol/L Normal [facility] Comment on above: Performed By: #### B 12FOL, FETIBC #### [facility] [address] [place] [address] Dr. Benito Schwartz Calcium [Mass/Vol] 9.3 mg/dL Normal 8.5-10.[address] [facility] Comment on above: Performed By: #### B 12FOL, FETIBC #### [facility] [address] [place] [address] Dr. Benito Schwartz Chloride [Moles/Vol] 99 mmol/L Normal 98-107 [facility] Comment on above: Performed By: #### B 12FOL, FETIBC #### [facility] [address] [place] [address] Dr. Benito Schwartz CO2 [Moles/Vol] 32.4 mmol/L Critically high 21.0-32.0 [facility] Comment on above: Performed By: #### B 12FOL, FETIBC #### [facility] [address] [place] [address] Dr. Benito Schwartz Creatinine [Mass/Vol] 2.77 mg/dL Critically high 0.70-1.30 [facility] Comment on above: Performed By: #### B 12FOL, FETIBC #### [facility] [address] [place] [address] Dr. Benito Schwartz EGFR-AF INDONESIAN 27 mL/min/1.73m2 Critically low >=60 [facility] Comment on above: Performed By: #### B 12FOL, FETIBC #### [facility] [address] [place] [address] Dr. Benito Schwartz EGFR-NON AF INDONESIAN 22 mL/min/1.73m2 Critically low >=60 [facility] Comment on above: Performed By: #### B 12FOL, FETIBC #### [facility] [address] [place] [address] Dr. Benito Schwartz Glucose [Mass/Vol] 166 mg/dL Critically high 74-106 [facility] Comment on above: Performed By: #### B 12FOL, FETIBC #### [facility] [address] [place] [address] Dr. Benito Schwartz Potassium [Moles/Vol] 3.5 mmol/L Normal 3.5-5.1 [facility] Comment on above: Performed By: #### B 12FOL, FETIBC #### [facility] [address] [place] [address] Dr. Benito Schwartz Sodium [Moles/Vol] 138 mmol/L Normal 136-[address] [facility] Comment on above: Performed By: #### B 12FOL, FETIBC #### [facility] [address] [place] [address] Dr. Benito Schwartz Urea nitrogen [Mass/Vol] 50.0 mg/dL Critically high 7.0-18 .0 [facility] Comment on above: Performed By: #### B 12FOKasia FETIBC #### [facility] [address] [place] [address] Dr. Benito Schwartz Urea nitrogen/Creatinine [Mass ratio] 18.1 mg/mg Normal [facility] Comment on above: Performed By: #### B 12FOKasia, FETIBC #### [facility] [address] [place] [address] Dr. Benito Schwartz UA RANDOMon 09-09-2022 Bilirubin Ql (U) Negative Normal NEGATIVE [facility] Comment on above: Performed By: #### V ITAD #### [facility] [address] [place] [address] Dr. Benito Schwartz Clarity (U) CLEAR Normal CLEAR [facility] Comment on above: Performed By: #### V ITAD #### [facility] [address] [place] [address] Dr. Benito Schwartz Color (U) LT. YELLOW Normal YELLOW [facility] Comment on above: Performed By: #### V ITAD #### [facility] [address] [place] [address] Dr. Benito Schwartz Glucose Ql (U) Negative Normal NEGATIVE [facility] Comment on above: Performed By: #### V ITAD #### [facility] [address] [place] [address] Dr. Benito Schwartz Hemoglobin Ql (U) Negative Normal NEGATIVE [facility] Comment on above: Performed By: #### V ITAD #### [facility] [address] [place] [address] Dr. Benito Schwartz Ketones Ql (U) Negative Normal NEGATIVE [facility] Comment on above: Performed By: #### V ITAD #### [facility] [address] [place] [address] Dr. Benito Schwartz LEUKOCYTES Negative Normal NEGATIVE [facility] Comment on above: Performed By: #### V ITAD #### [facility] [address] [place] [address] Dr. Benito Schwartz Nitrite Ql (U) Negative Normal NEGATIVE [facility] Comment on above: Performed By: #### V ITAD #### [facility] [address] [place] [address] Dr. Benito Schwartz pH (U) 5.5 [pH] Normal 5-9 [facility] Comment on above: Performed By: #### V ITAD #### [facility] [address] [place] [address] Dr. Benito Schwartz SPEC GRAVITY 1.010 Normal 1.005-<=1.[address] [place] [address] Comment on above: Performed By: #### V ITAD #### [facility] [address] [place] [address] Dr. Benito Schwartz UA PROTEIN Negative Normal NEGATIVE/ TRACE [facility] Comment on above: Performed By: #### V ITAD #### [facility] [address] [place] [address] Dr. Benito Schwartz Urobilinogen Qn (U) 0.2 {Jagruti'U}/dL Normal 0.2 - 1. 0 [facility] Comment on above: Performed By: #### V ITAD #### [facility] [address] [place] [address] Dr. Benito Schwartz URINE T PROTEIN CREAT RATIOo n 09-09-2022 Protein (U) [Mass/Vol] 16.4 mg/dL Critically high <=12.0 [facility] Comment on above: Performed By: #### T KRISTOPHER FT3, BMP #### [facility] [address] [place] [address] Dr. Benito Schwartz UR PROT CREAT RAT 0.79 Normal [facility] Comment on above: Performed By: #### T MELISA SUMMERS3, BMP #### [facility] [address] [place] [address] Dr. Benito Schwartz URINE CREAT 20.88 mg/dL Normal 20.00-300.00 [facility] Comment on above: Performed By: #### T KRISTOPHER FT3, BMP #### [facility] [address] [place], [place] [address] Dr. Benito Schwartz VITAMIN D 25 OHon 09-09-2022 VIT D 25-OH 83.7 ng/mL Normal [facility] Comment on above: Performed By: #### V ITAD #### [facility] [address] [place], [place] [address] Dr. Benito Schwartz VIT D RANGES SEE BELOW Normal [facility] Comment on above: Result Comment: <20 ng/mL Vit D deficient 20 - <30 ng/mL Vit D insufficient 30 - 100 ng/mL Vit D sufficient >100 ng/mL Potential Toxicity Performed By: #### V ITAD #### [facility] [address] [address] [address] Benito Schwartz Albumin [Mass/volume] in Ser um or PlasmaOrdered By: Leigha Nelson on 08-31-2022 Albumin [Mass/Vol] 3.9 g/dL 3.2-5.5 [facility] Basophils Auto (Bld) [#/Vol] Ordered By: Leigha Nelson on 08-31-2022 Basophils (Bld) [#/Vol] 0.0 10*3/uL 0.0-0.[address] [facility] Basophils/100 WBC Auto (Bld) Ordered By: Leigha Nelson on 08-31-2022 Basophils/100 WBC (Bld) 0.5 % . [facility] Creatinine and Glomerular fi ltration rate.predicted panel (S/P/Bld)Ordered By: Leigha Nelson on 08-31-2022 Creatinine [Mass/Vol] 2.63 mg/dL 0.64-1.27 [facility] Eosinophils Auto (Bld) [#/Vo l]Ordered By: Leigha Nelson on 08-31-2022 Eosinophils (Bld) [#/Vol] 0.3 10*3/uL 0.0-0.[address] [facility] Eosinophils/100 WBC Auto (Bl d)Ordered By: Leigha Nelson on 08-31-2022 Eosinophils/100 WBC (Bld) 4.3 % . [facility] Erythrocyte distribution wid th Auto (RBC) [Ratio]Ordered By: Leigha Nelson on 08-31-2022 Erythrocyte distribution width (RBC) [Ratio] 15.7 % 12.0-14.[address] [facility] Estimated glomerular filtrat ion rate (GFR) non- AmericanOrdered By: Leigha Nelson on 08-31-2022 GFR/1.73 sq M.predicted among non-blacks MDRD (S/P/Bld) [Vol rate/Area] 24 mL/Min [facility] Globulin Calc (S) [Mass/Vol] Ordered By: Leigha Nelson on 08-31-2022 Globulin (S) [Mass/Vol] 2.8 g/dL [facility] Hematocrit Auto (Bld) [Volum e fraction]Ordered By: Leigha Nelson on 08-31-2022 Hematocrit (Bld) [Volume fraction] 37.2 % 38.8-50.[address] [facility] Hemoglobin [Mass/volume] in BloodOrdered By: Leigha Nelson on 08-31-2022 Hemoglobin (Bld) [Mass/Vol] 12.4 g/dL 13.0-17.[address] [facility] - Hematology and Cell countsOrdered By: Leigha Nelson on 08-31-2022 Nucleated RBC/100 WBC (Bld) [Ratio] 0.1 % 0-0.[address] [facility] Leukocytes [#/volume] in Blo od by Automated countOrdered By: Leigha Nelson on 08-31-2022 WBC (Bld) [#/Vol] 6.7 10*3/uL 4.5-11.0 [facility] Lymphocytes Auto (Bld) [#/Vo l]Ordered By: Leigha Nelson on 08-31-2022 Lymphocytes (Bld) [#/Vol] 1.2 10*3/uL 1.00-4.[address] [facility] Lymphocytes/100 WBC Auto (Bl d)Ordered By: Leigha Nelson on 08-31-2022 Lymphocytes/100 WBC (Bld) 18.5 % . [facility] MCH Auto (RBC) [Entitic mass ]Ordered By: Leigha Nelson on 08-31-2022 MCH (RBC) [Entitic mass] 31.0 pg 27.5-35.[address] [facility] MCHC Auto (RBC) [Mass/Vol]Or dered By: Leigha Nelson on 08-31-2022 MCHC (RBC) [Mass/Vol] 33.4 g/dL 32.5-35.6 [facility] MCV Auto (RBC) [Entitic vol] Ordered By: Leigha Nelson on 08-31-2022 MCV (RBC) [Entitic vol] 92.9 fL 83.5-101 [facility] Monocytes Auto (Bld) [#/Vol] Ordered By: Leigha Nelson on 08-31-2022 Monocytes (Bld) [#/Vol] 0.6 10*3/uL 0.0-0.[address] [facility] Monocytes/100 WBC Auto (Bld) Ordered By: Leigha Nelson on 08-31-2022 Monocytes/100 WBC (Bld) 8.4 % . [facility] Neutrophils Auto (Bld) [#/Vo l]Ordered By: Leigha Nelson on 08-31-2022 Neutrophils (Bld) [#/Vol] 4.6 10*3/uL 1.8-7.[address] [facility] Neutrophils/100 WBC Auto (Bl d)Ordered By: Leigha Nelson on 08-31-2022 Neutrophils/100 WBC (Bld) 68.3 % . [facility] No Panel InformationOrdered By: Leigha Nelson on 08-31-2022 Estimated GFR () 29 mL/Min [facility] Comment on above: GFR estimated refere nce range: According to KDOQI guidelines, <60 ml/min/1.73m2 is sufficient to diagnose a patient with chronic kidney disease. Pharmacy Creatinine Clearance (Chem 26.[address] [facility] Platelet mean volume Auto (B ld) [Entitic vol]Ordered By: Leigha Nelson on 08-31-2022 Platelet mean volume (Bld) [Entitic vol] 6.8 fL 6.6-10.[address] [facility] Platelets Auto (Bld) [#/Vol] Ordered By: Leigha Nelson on 08-31-2022 Platelets (Bld) [#/Vol] 238 10*3/uL 150-[address] [facility] Protein [Mass/volume] in Ser um or PlasmaOrdered By: Leigha Nelson on 08-31-2022 Protein [Mass/Vol] 6.7 g/dL 6.1-7.9 [facility] RBC Auto (Bld) [#/Vol]Ordere d By: Leigha Omar on 08-31-2022 RBC (Bld) [#/Vol] 4.00 10*6/uL 3.90-5.60 [facility] Serum or plasma alanine paige otransferase measurement without P-5'-P (enzymatic activiOrdered By: Leigha Nelson on 08-31-2022 ALT No additional P-5'-P [Catalytic activity/Vol] 26 U/L 10-60 [facility] Serum or plasma albumin/glob ulin mass ratioOrdered By: Leigha Nelson on 08-31-2022 Albumin/Globulin [Mass ratio] 1.4 {ratio} [facility] Serum or plasma alkaline mega sphatase measurement (enzymatic activity/volume)Ordered By: Leigha Nelson on 08-31-2022 ALP [Catalytic activity/Vol] 112 U/L 32-[address] [facility] Serum or plasma anion gap de terminationOrdered By: Leigha Nelson on 08-31-2022 Anion gap [Moles/Vol] 9.4 mmol/L 6.0-15.0 [facility] Serum or plasma aspartate am inotransferase measurement (enzymatic activity/volume)Ordered By: Leigha Nelson on 08-31-2022 AST [Catalytic activity/Vol] 32 U/L 10-[address] [facility] Serum or plasma calcium darshan urement (mass/volume)Ordered By: Leihga Nelson on 08-31-2022 Calcium [Mass/Vol] 8.9 mg/dL 8.2-10.2 [facility] Serum or plasma carcinoembry onic antigen measurement (mass/volume)Ordered By: Leigha Nelson on 08-31-2022 Carcinoembryonic Ag [Mass/Vol] 2.5 ng/mL 0.0-3.[address] [facility] Serum or plasma chloride ernestine surement (moles/volume)Ordered By: Leigha Nelson on 08-31-2022 Chloride [Moles/Vol] 98 mmol/L 95-114 [facility] Serum or plasma glucose darshan urement (mass/volume)Ordered By: Leigha Talamantesrenée on 08-31-2022 Glucose [Mass/Vol] 104 mg/dL 70-100 [facility] Comment on above: ADA recommended refe rence rangeRandom Glucose Reference Range is dependent on time and content of last meal. Glucose of more than 200 mg/dL in a nonstressed, ambulatory subject supports the diagnosis of Diabetes Mellitus. Serum or plasma potassium me asurement (moles/volume)Ordered By: Leigha Talamantesrenée on 08-31-2022 Potassium [Moles/Vol] 3.4 mmol/L 3.5-5.1 [facility] Serum or plasma sodium measu rement (moles/volume)Ordered By: Leigha Omar on 08-31-2022 Sodium [Moles/Vol] 135 mmol/L 136-146 [facility] Serum or plasma total biliru bin measurement (mass/volume)Ordered By: Leigha Talamantesrenée on 08-31-2022 Bilirubin [Mass/Vol] 0.8 mg/dL 0.3-1.2 [facility] Serum or plasma total carbon dioxide measurement (moles/volume)Ordered By: Leigha Talamantesrenée on 08-31-2022 CO2 [Moles/Vol] 31.0 mmol/L 22.0-30.0 [facility] Serum or plasma urea nitroge n measurement (mass/volume)Ordered By: Leigha Talamantesrenée on 08-31-2022 Urea nitrogen [Mass/Vol] 40 mg/dL 9-[address] [facility] T3, TOTAL (TRIIODOTHYRONINE) on 08-31-2022 T3, TOTAL 42 ng/dL Critically low 71-180 [facility] Comment on above: Performed By: #### F T4, PSASC #### [facility] [address], [place] [address] Dr. Benito Schwartz FREE T4on 08-30-2022 Free T4 [Mass/Vol] 0.11 ng/dL Critically low 0.76-1.46 [facility] Comment on above: Performed By: #### V ITAD #### [facility] [address] [place], [place] [address] Dr. Benito Schwartz TSHon 08-30-2022 TSH 121.477 uIU/mL Critically high 0.358-3.740 [facility] Comment on above: Performed By: #### F T4 #### [facility] [address] [address] [address] Benito Schwartz Glucose Glucometer (BldC) [M ass/Vol]Ordered By: Ramesh Rascon on 07-21-2022 Glucose [Mass/Vol] 105 mg/dL [facility] Comment on above: Random Glucose Refer ence Range is dependent on time and content of last meal. Glucose of more than 200 mg/dL in a nonstressed, ambulatory subject supports the diagnosis of Diabetes Mellitus. T3, TOTAL (TRIIODOTHYRONINE) on 07-21-2022 T3, TOTAL 56 ng/dL Critically low 71-180 [facility] Comment on above: Performed By: #### F T4, PSASC #### [facility] [address] [address] [address] Benito Schwartz FREE T4on 07-20-2022 Free T4 [Mass/Vol] 0.48 ng/dL Critically low 0.76-1.46 [facility] Comment on above: Performed By: #### V ITAD #### [facility] [address] [address] [address] Benito Schwartz TSHon 07-20-2022 TSH 67.173 uIU/mL Critically high 0.358-3.740 [facility] Comment on above: Performed By: #### U RTPCR #### [facility] [address] [place] [address] Dr. Benito Schwartz COVID-19 SOFIAOrdered By: Lucia Rascon on 07-19-2022 SARS-CoV+SARS-CoV-2 (COVID-19) Ag IA.rapid Ql (Resp) Negative Negative [facility] Comment on above: This is a duplicate Lindsay SARS Antigen (MADHU) result to be used for statistical tracking purpose only. No Panel InformationOrdered By: Ramesh Rascon on 07-19-2022 SARS Antigen (LFIA) [facility] Albumin [Mass/volume] in Ser um or PlasmaOrdered By: Chivo Keller on 05-31-2022 Albumin [Mass/Vol] 3.9 g/dL 3.2-5.5 [facility] Basophils Auto (Bld) [#/Vol] Ordered By: Chivo Keller on 05-31-2022 Basophils (Bld) [#/Vol] 0.1 10*3/uL 0.0-0.[address] [facility] Basophils/100 WBC Auto (Bld) Ordered By: Chivo Keller on 05-31-2022 Basophils/100 WBC (Bld) 0.8 % . [facility] Blood hemoglobin measurement (mass/volume)Ordered By: Chivo Keller on 05-31-2022 Hemoglobin (Bld) [Mass/Vol] 11.1 g/dL 13.0-17.[address] [facility] Blood leukocytes automated c ount (number/volume)Ordered By: Chivo Keller on 05-31-2022 WBC (Bld) [#/Vol] 8.8 10*3/uL 4.5-11.0 [facility] CT biopsyOrdered By: Danuta Kelly on 05-31-2022 Transferrin [Mass/Vol] 210 mg/dL 180-380 [facility] Creatinine (Bld) [Mass/Vol]O rdered By: Nikunj Shultz on 05-31-2022 Creatinine [Mass/Vol] 2.4 mg/dL High 0.6-1.3 [facility] Comment on above: ER/ESD physician is notified/shown all ISTAT results. Critical values may be confirmed by laboratory testing if deemed necessary by ER attending doctor. ER/ESD physician is notified/shown all ISTAT results.Critical values may be confirmed by laboratory testing ifdeemed necessary by ER attending doctor. Creatinine and Glomerular fi ltration rate.predicted panel (S/P/Bld)Ordered By: Chivo Keller on 05-31-2022 Creatinine [Mass/Vol] 2.23 mg/dL 0.64-1.27 [facility] Eosinophils Auto (Bld) [#/Vo l]Ordered By: Chivo Keller on 05-31-2022 Eosinophils (Bld) [#/Vol] 0.4 10*3/uL 0.0-0.[address] [facility] Eosinophils/100 WBC Auto (Bl d)Ordered By: Chivo Keller on 05-31-2022 Eosinophils/100 WBC (Bld) 4.1 % . [facility] Erythrocyte distribution wid th Auto (RBC) [Ratio]Ordered By: Chivo Keller on 05-31-2022 Erythrocyte distribution width (RBC) [Ratio] 16.4 % 12.0-14.[address] [facility] Estimated glomerular filtrat ion rate (GFR) non- AmericanOrdered By: Chivo Keller on 05-31-2022 GFR/1.73 sq M.predicted among non-blacks MDRD (S/P/Bld) [Vol rate/Area] 28 mL/Min [facility] Ferritin [Mass/volume] in Se rum or PlasmaOrdered By: Danuta Kelly on 05-31-2022 Ferritin [Mass/Vol] 96.9 ng/mL 23.9-336.2 [facility] Folate [Mass/volume] in Seru m or PlasmaOrdered By: Danuta Kelly on 05-31-2022 Folate [Mass/Vol] 17.7 ng/mL >5.9 [facility] Comment on above: Folate reference ran ge: >5.9 ng/ml The WHO technical consultation on folate and vitamin b12 deficiencies has determined that folate concentrations less than 4 ng/ml are considered deficient. Folate reference ran ge: >5.9 ng/mlThe WHO technical consultation on folate and vitamin [id number] has determined that folate concentrations lessthan 4 ng/ml are considered deficient. Globulin Calc (S) [Mass/Vol] Ordered By: Chivo Keller on 05-31-2022 Globulin (S) [Mass/Vol] 3.4 g/dL [facility] Hematocrit Auto (Bld) [Volum e fraction]Ordered By: Chivo Keller on 05-31-2022 Hematocrit (Bld) [Volume fraction] 33.6 % 38.8-50.[address] [facility] Iron [Mass/volume] in Serum or PlasmaOrdered By: Danuta Kelly on 05-31-2022 Iron [Mass/Vol] 42 ug/dL 40-[address] [facility] Iron binding capacity [Mass/ volume] in Serum or PlasmaOrdered By: Danuta Kelly on 05-31-2022 Iron binding capacity [Mass/Vol] 294 ug/dL 255-[address] [facility] Iron saturation [Mass Fracti on] in Serum or PlasmaOrdered By: Danuta Kelly on 05-31-2022 Iron saturation [Mass fraction] 14.0 % 20-[address] [facility] - Chemistry and C hemistry - challengeOrdered By: Danuta Kelly on 05-31-2022 Cobalamin (Vitamin B12) [Mass/Vol] 463 pg/mL 180-[address] [facility] - Hematology and Cell countsOrdered By: Chivo Keller on 05-31-2022 Nucleated RBC/100 WBC (Bld) [Ratio] 0.0 % 0-0.[address] [facility] Lymphocytes Auto (Bld) [#/Vo l]Ordered By: Chivo Keller on 05-31-2022 Lymphocytes (Bld) [#/Vol] 1.5 10*3/uL 1.00-4.[address] [facility] Lymphocytes/100 WBC Auto (Bl d)Ordered By: Chivo Keller on 05-31-2022 Lymphocytes/100 WBC (Bld) 17.2 % . [facility] MCH Auto (RBC) [Entitic mass ]Ordered By: Chivo Keller on 05-31-2022 MCH (RBC) [Entitic mass] 29.2 pg 27.5-35.[address] [facility] MCHC Auto (RBC) [Mass/Vol]Or dered By: Chivo Keller on 05-31-2022 MCHC (RBC) [Mass/Vol] 33.1 g/dL 32.5-35.6 [facility] MCV Auto (RBC) [Entitic vol] Ordered By: Chivo Keller on 05-31-2022 MCV (RBC) [Entitic vol] 88.2 fL 83.5-101 [facility] Monocytes Auto (Bld) [#/Vol] Ordered By: Chivo Keller on 05-31-2022 Monocytes (Bld) [#/Vol] 0.7 10*3/uL 0.0-0.[address] [facility] Monocytes/100 WBC Auto (Bld) Ordered By: Chivo Keller on 05-31-2022 Monocytes/100 WBC (Bld) 8.0 % . [facility] Neutrophils Auto (Bld) [#/Vo l]Ordered By: Chivo Keller on 05-31-2022 Neutrophils (Bld) [#/Vol] 6.2 10*3/uL 1.8-7.[address] [facility] Neutrophils/100 WBC Auto (Bl d)Ordered By: Chivo Keller on 05-31-2022 Neutrophils/100 WBC (Bld) 69.9 % . [facility] No Panel InformationOrdered By: Nikunj Shultz on 05-31-2022 POC Estimated GFR [address] [facility] Comment on above: GFR estimated refere nce range: According to KDOQI guidelines, <60 ml/min/1.73m2 is sufficient to diagnose a patient with chronic kidney disease. POC Estimated GFR Non- Amer [address] [facility] No Panel InformationOrdered By: Chivo Keller on 05-31-2022 Estimated GFR () 34 mL/Min [facility] Comment on above: GFR estimated refere nce range: According to KDOQI guidelines, <60 ml/min/1.73m2 is sufficient to diagnose a patient with chronic kidney disease. Pharmacy Creatinine Clearance (Chem 31.[address] [facility] Platelet mean volume Auto (B ld) [Entitic vol]Ordered By: Chivo Keller on 05-31-2022 Platelet mean volume (Bld) [Entitic vol] 7.0 fL 6.6-10.[address] [facility] Platelets Auto (Bld) [#/Vol] Ordered By: Chivo Keller on 05-31-2022 Platelets (Bld) [#/Vol] 308 10*3/uL 150-[address] [facility] Protein [Mass/volume] in Ser um or PlasmaOrdered By: Chivo Keller on 05-31-2022 Protein [Mass/Vol] 7.3 g/dL 6.1-7.9 [facility] RBC Auto (Bld) [#/Vol]Ordere d By: Chivo Keller on 05-31-2022 RBC (Bld) [#/Vol] 3.81 10*6/uL 3.90-5.60 [facility] Serum or plasma alanine paige otransferase measurement without P-5'-P (enzymatic activiOrdered By: Chivo Keller on 05-31-2022 ALT No additional P-5'-P [Catalytic activity/Vol] 17 U/L 10-60 [facility] Serum or plasma albumin/glob ulin mass ratioOrdered By: Chivo Keller on 05-31-2022 Albumin/Globulin [Mass ratio] 1.1 {ratio} [facility] Serum or plasma alkaline mega sphatase measurement (enzymatic activity/volume)Ordered By: Chivo Keller on 05-31-2022 ALP [Catalytic activity/Vol] 140 U/L 32-[address] [facility] Serum or plasma aspartate am inotransferase measurement (enzymatic activity/volume)Ordered By: Chivo Keller on 05-31-2022 AST [Catalytic activity/Vol] 22 U/L 10-[address] [facility] Serum or plasma calcium darshan urement (mass/volume)Ordered By: Chivo Keller on 05-31-2022 Calcium [Mass/Vol] 9.5 mg/dL 8.2-10.2 [facility] Serum or plasma carcinoembry onic antigen measurement (mass/volume)Ordered By: Chivo Keller on 05-31-2022 Carcinoembryonic Ag [Mass/Vol] 1.8 ng/mL 0.0-3.[address] [facility] Serum or plasma chloride ernestine surement (moles/volume)Ordered By: Chivo Keller on 05-31-2022 Chloride [Moles/Vol] 101 mmol/L 95-114 [facility] Serum or plasma glucose darshan urement (mass/volume)Ordered By: Chivo Keller on 05-31-2022 Glucose [Mass/Vol] 108 mg/dL 70-100 [facility] Comment on above: ADA recommended refe [...] on 05-31-2022 Potassium [Moles/Vol] 4.4 mmol/L 3.5-5.1 [facility] Serum or plasma sodium measu rement (moles/volume)Ordered By: Chivo Keller on 05-31-2022 Sodium [Moles/Vol] 140 mmol/L 136-146 [facility] Serum or plasma total biliru bin measurement (mass/volume)Ordered By: Chivo Keller on 05-31-2022 Bilirubin [Mass/Vol] 0.5 mg/dL 0.3-1.2 [facility] Serum or plasma total carbon dioxide measurement (moles/volume)Ordered By: Chivo Keller on 05-31-2022 CO2 [Moles/Vol] 29.7 mmol/L 22.0-30.0 [facility] Serum or plasma urea nitroge n measurement (mass/volume)Ordered By: Chivo Keller on 05-31-2022 Urea nitrogen [Mass/Vol] 42 mg/dL - [facility] CBC W/DIFFon 05-26-2022 ABS IMM GRANS 0.1 10*3/uL Normal 0.0-0.2 [facility] Comment on above: Performed By: #### 5 0103 #### [facility] [address] [facility]. [address] ABS NEUTROPHILS 6.4 10*3/uL Normal 1.6-7.6 [facility] Comment on above: Performed By: #### 5 0103 #### [facility] [address] [facility] [place] [address], [facility] Basophils (Bld) [#/Vol] 0.0 10*3/uL Normal 0.0-0.2 [facility] Comment on above: Performed By: #### 5 0103 #### [facility] [address] [place] [address], [facility] Basophils/100 WBC (Bld) 0.4 % Normal 0.0-1.0 T mela [facility] Comment on above: Performed By: #### 5 0103 #### [facility] [address] [place] [address], [facility] Eosinophils (Bld) [#/Vol] 0.4 10*3/uL Normal 0.0-0.5 [facility] Comment on above: Performed By: #### 5 0103 #### [facility] [address] [facility] [address], [facility] Eosinophils/100 WBC (Bld) 4.3 % Normal 0.0-6.0 [facility] Comment on above: Performed By: #### 5 0103 #### [facility] [address] [facility] [address] Erythrocyte distribution width (RBC) [Ratio] 15.9 % High 11.5-15.0 [facility] Comment on above: Performed By: #### 5 0103 #### [facility] [address] [facility] [address], [facility] Hematocrit (Bld) [Volume fraction] 31.6 % Low 39.0-50.0 [facility] Comment on above: Performed By: #### 5 0103 #### [facility] [address] [facility] [address], [facility] Hemoglobin (Bld) [Mass/Vol] 10.0 g/dL Low 13.0-17.0 [facility] Comment on above: Performed By: #### 5 0103 #### [facility] [address] [place] [address], [facility] IMMATURE GRANS 0.8 % Normal 0.0-1.0 [facility] Comment on above: Performed By: #### 5 0103 #### [facility] [address] [facility] [address], [facility] Lymphocytes (Bld) [#/Vol] 1.6 10*3/uL Normal 1.2-4.0 [facility] Comment on above: Performed By: #### 5 102 #### [facility] [address] [facility] [address], [facility] Lymphocytes/100 WBC (Bld) 16.8 % Low 20.0-45.0 [facility] Comment on above: Performed By: #### 102 #### [facility] [address] [place] [address], [facility] MCH (RBC) [Entitic mass] 28.7 pg Normal 27.0-33.0 [facility] Comment on above: Performed By: #### 102 #### [facility] [address] [facility] [address], [facility] MCHC (RBC) [Mass/Vol] 31.6 g/dL Low 32.0-35.0 [facility] Comment on above: Performed By: #### 5 102 #### [facility] [address] [facility] [place] [address], [facility] MCV (RBC) [Entitic vol] 90.5 fL Normal 82.0-98.0 T he [facility] Comment on above: Performed By: #### 5 102 #### [facility] [address] [facility] [address], [facility] Monocytes (Bld) [#/Vol] 0.8 10*3/uL Normal 0.1-1.0 [facility] Comment on above: Performed By: #### 102 #### [facility] [address] [facility] [address], [facility] MONOS 9.0 % Normal 5.0-12.0 [facility] Comment on above: Performed By: #### 5 102 #### [facility] [address] [place] [address], [facility] Neutrophils/100 WBC (Bld) 68.7 % Normal 40.0-72.0 [facility] Comment on above: Performed By: #### 5 0103 #### [facility] [address] [place] [address], [facility] Nucleated RBC/100 WBC (Bld) [Ratio] 0 % Normal 0-0 [facility] Comment on above: Performed By: #### 5 0103 #### [facility] [address] [place] [address], [facility] PLAT CNT 292 10*3/uL Normal 150-400 [facility] Comment on above: Performed By: #### 5 0103 #### [facility] [address] [place] [address], [facility] RBC (Bld) [#/Vol] 3.49 10*6/uL Low 4.20-5.70 [facility] Comment on above: Performed By: #### 5 0103 #### [facility] [address] [place] [address], [facility] WBC (Bld) [#/Vol] 9.29 10*3/uL Normal 4.00-10.60 [facility] Comment on above: Performed By: #### 5 0103 #### [facility] [address] [place] [address], [facility] IMMUNOGLOBULIN Jovany 2 [place] Normal [facility] Comment on above: Result Comment: Test Performed by [employer] [facility] [place] [address] - Released 05/27/2022 12:45 IMMUNOGLOBULIN E 308 IU/mL High <101 [facility] THYROID-STIMULATING IMMUNOGL OBULINon 05-14-2022 Thyroid Sim Immunoglobulin <0.10 Normal 0.00-0.55 [facility] Comment on above: Performed By: #### C BC #### [facility] [address] [address] [address] Benito Schwartz THYROTROPIN RECEPTOR ABon Thyrotropin Receptor Ab, Serum <1.10 Normal 0.00-1.75 [facility] Comment on above: Performed By: #### C BC #### [facility] [address] [address] [address] Benito Schwartz PTH INTACTon 05-13-2022 PTH, Intact 18 pg/mL Normal 15-65 [facility] Comment on above: Performed By: #### C BC #### [facility] [address] [address] [address] Benito Schwartz T3, TOTAL (TRIIODOTHYRONINE) on 05-13-2022 T3, TOTAL 80 ng/dL Normal 71-180 [facility] Comment on above: Performed By: #### U RTPCR #### [facility] [address] [place] [address] Dr. Benito Schwartz VIT D 25-OH LABCORPon 2021 Vitamin D, 25-Hydroxy 84.3 ng/mL Normal 30.0-100.0 [facility] Comment on above: Result Comment: Randi min D deficiency has been defined by the [place] [employer] and an Endocrine Society practice guideline as a level of serum 25-OH vitamin D less than 20 ng/mL (1,2). The Endocrine Society went on to further define vitamin D insufficiency as a level between 21 and 29 ng/mL (2). 1. IOM ([place] [employer]). 2010. Dietary reference intakes for calcium and D. [place]: The National Academies Press. 2. Annamarie MF, Milena [place], Jamin BURGESS, et al. Evaluation, treatment, and prevention of vitamin D deficiency: an Endocrine Society clinical practice guideline. JCEM. 2010; 96(7):1911-30. Performed By: #### U RTPCR #### [facility] [address] [place] [address] Dr. Benito Schwartz CBC AUTO DIFFon 05-12-2022 BASO # 0.0 103/ul Normal 0.0-0.1 [facility] Comment on above: Performed By: #### C BC #### [facility] [address] [address] [address] Benito Schwartz Basophils/100 WBC (Bld) 0.2 % Normal 0.2-2.0 [facility] Comment on above: Performed By: #### C BC #### [facility] [address] [address] [address] Benito Schwartz EO # 0.4 103/ul Normal 0.0-0.7 [facility] Comment on above: Performed By: #### C BC #### [facility] [address] [address] [address] Benito Schwartz Eosinophils/100 WBC (Bld) 4.4 % Normal 0.9-7.0 [facility] Comment on above: Performed By: #### C BC #### [facility] [address] [place] [address] Dr. Benito Schwartz Erythrocyte distribution width (RBC) [Ratio] 15.0 % Normal 11.0-15.0 [facility] Comment on above: Performed By: #### C BC #### [facility] [address] [address] [address] Benito Schwartz Hematocrit (Bld) [Volume fraction] 29.8 % Critically low 42.0-54.0 [facility] Comment on above: Performed By: #### C BC #### [facility] [address] [place] [address] Dr. Benito Schwartz Hemoglobin (Bld) [Mass/Vol] 9.7 g/dL Critically low 14.0-18.0 [facility] Comment on above: Performed By: #### C BC #### [facility] [address] [place] [address] Dr. Benito Schwartz IG # 0.06 10e3/ul Critically high 0.00-0.03 [facility] Comment on above: Performed By: #### C BC #### [facility] [address] [address] [address] Benito Schwartz IG % 0.7 % Critically high 0.0-0.5 [facility] Comment on above: Performed By: #### C BC #### [facility] [address] [address] [address] Benito Schwartz LYMPH # 1.9 103/ul Normal 1.2-3.8 [facility] Comment on above: Performed By: #### C BC #### [facility] [address] [address] [address] Benito Schwartz Lymphocytes/100 WBC (Bld) 21.1 % Normal 20.5-60.0 [facility] Comment on above: Performed By: #### C BC #### [facility] [address] [place] [address] Dr. Benito Schwartz MANUAL DIFF REQ NO Normal [facility] Comment on above: Performed By: #### C BC #### [facility] [address] [place] [address] Dr. Benito Schwartz MCH (RBC) [Entitic mass] 29.0 pg Normal 25.9-34.0 [facility] Comment on above: Performed By: #### C BC #### [facility] [address] [place] [address] Dr. Benito Schwartz MCHC (RBC) [Mass/Vol] 32.6 g/dL Normal 29.9-35.2 [facility] Comment on above: Performed By: #### C BC #### [facility] [address] [place] [address] Dr. Benito Schwartz MCV (RBC) [Entitic vol] 89.0 fL Normal 80.0-94.0 [facility] Comment on above: Performed By: #### C BC #### [facility] [address] [place] [address] Dr. Benito Schwartz MONO # 0.9 103/ul Critically high 0.3-0.8 [facility] Comment on above: Performed By: #### C BC #### [facility] [address] [place] [address] Dr. Benito Schwartz Monocytes/100 WBC (Bld) 9.9 % Normal 1.7-12.0 [facility] Comment on above: Performed By: #### C BC #### [facility] [address] [place] [address] Dr. Benito Schwartz NEUT # 5.8 103/ul Normal 1.4-6.5 [facility] Comment on above: Performed By: #### C BC #### [facility] [address] [place] [address] Dr. Benito Schwartz Neutrophils/100 WBC (Bld) 63.7 % Normal 43.0-75.0 [facility] Comment on above: Performed By: #### C BC #### [facility] [address] [place] [address] Dr. Benito Schwartz Platelet mean volume (Bld) [Entitic vol] 8.7 fL Critically low 9.5-13.5 [facility] Comment on above: Performed By: #### C BC #### [facility] [address] [place] [address] Dr. Benito Schwartz PLT 253 103/ul Normal 150-450 [facility] Comment on above: Performed By: #### C BC #### [facility] [address] [place] [address] Dr. Benito Schwartz RBC 3.35 106/ul Critically low 4.70-6.10 [facility] Comment on above: Performed By: #### C BC #### [facility] [address] [place] [address] Dr. Benito Schwartz WBC 9.1 103/ul Normal 4.0-11.0 [facility] Comment on above: Performed By: #### C BC #### [facility] [address] [place] [address] Dr. Benito Schwartz FREE T4on 05-12-2022 Free T4 [Mass/Vol] 1.25 ng/dL Normal 0.76-1.[address] [facility] Comment on above: Performed By: #### V ITAD #### [facility] [address] [place] [address] Dr. Benito Schwartz MAGNESIUMon 05-12-2022 Magnesium [Mass/Vol] 2.1 mg/dL Normal 1.8-2.4 [facility] Comment on above: Performed By: #### F T4 #### [facility] [address] [place] [address] Dr. Benito Schwartz PHOSPHORUSon 05-12-2022 Phosphate [Mass/Vol] 4.2 mg/dL Normal 2.6-4.7 [facility] Comment on above: Performed By: #### F T4 #### [facility] [address] [place] [address] Dr. Benito Schwartz PROF CHEM 8 (BAS METB)on Anion gap [Moles/Vol] 13.4 mmol/L Normal [facility] Comment on above: Performed By: #### F T4 #### [facility] [address] [place] [address] Dr. Benito Schwartz Calcium [Mass/Vol] 9.1 mg/dL Normal 8.5-10.[address] [facility] Comment on above: Performed By: #### F T4 #### [facility] [address] [place] [address] Dr. Benito Schwartz Chloride [Moles/Vol] 103 mmol/L Normal 98-107 [facility] Comment on above: Performed By: #### F T4 #### [facility] [address] [place] [address] Dr. Benito Schwartz CO2 [Moles/Vol] 28.6 mmol/L Normal 21.0-32.0 [facility] Comment on above: Performed By: #### F T4 #### [facility] [address] [place] [address] Dr. Benito Schwartz Creatinine [Mass/Vol] 2.30 mg/dL Critically high 0.70-1.30 [facility] Comment on above: Performed By: #### F T4 #### [facility] [address] [place] [address] Dr. Benito Schwartz EGFR-AF INDONESIAN 33 mL/min/1.73m2 Critically low >=60 [facility] Comment on above: Performed By: #### F T4 #### [facility] [address] [place] [address] Dr. Benito Schwartz EGFR-NON AF INDONESIAN 27 mL/min/1.73m2 Critically low >=60 [facility] Comment on above: Performed By: #### F T4 #### [facility] [address] [address] [address] Benito Schwartz Glucose [Mass/Vol] 123 mg/dL Critically high 74-106 T [facility] Comment on above: Performed By: #### F T4 #### [facility] [address] [address] [address] Benito Schwartz Potassium [Moles/Vol] 4.0 mmol/L Normal 3.5-5.1 [facility] Comment on above: Performed By: #### F T4 #### [facility] [address] [address] [address] Benito Schwartz Sodium [Moles/Vol] 141 mmol/L Normal 136-[address] [facility] Comment on above: Performed By: #### F T4 #### [facility] [address] [address] [address] Benito Schwartz Urea nitrogen [Mass/Vol] 51.0 mg/dL Critically high 7.0-18 .0 [facility] Comment on above: Performed By: #### F T4 #### [facility] [address] [address] [address] Benito Schwartz Urea nitrogen/Creatinine [Mass ratio] 22.2 mg/mg Normal [facility] Comment on above: Performed By: #### F T4 #### [facility] [address] [address] [address] Benito Schwartz TSHon 05-12-2022 TSH Qn m[IU]/L Critically low 0.358-3.740 [facility] Comment on above: Performed By: #### C BC #### [facility] [address] [address] [address] Benito Schwartz UA RANDOMon 05-12-2022 Bilirubin Ql (U) Negative Normal NEGATIVE [facility] Comment on above: Performed By: #### U RTPCR #### [facility] [address] [address] [address] Benito Schwartz Clarity (U) CLEAR Normal CLEAR [facility] Comment on above: Performed By: #### U RTPCR #### [facility] [address] [address] [address] Benito Schwartz Color (U) LT. YELLOW Normal YELLOW [facility] Comment on above: Performed By: #### U RTPCR #### [facility] [address] [address] [address] Benito Shcwartz Glucose Ql (U) Negative Normal NEGATIVE [facility] Comment on above: Performed By: #### U RTPCR #### [facility] [address] [place] [address] Dr. Benito Schwartz Hemoglobin Ql (U) Negative Normal NEGATIVE [facility] Comment on above: Performed By: #### U RTPCR #### [facility] [address] [place] [address] Dr. Benito Schwartz Ketones Ql (U) Negative Normal NEGATIVE [facility] Comment on above: Performed By: #### U RTPCR #### [facility] [address] [place] [address] Dr. Benito Schwartz LEUKOCYTES Negative Normal NEGATIVE [facility] Comment on above: Performed By: #### U RTPCR #### [facility] [address] [place] [address] Dr. Benito Schwartz Nitrite Ql (U) Negative Normal NEGATIVE [facility] Comment on above: Performed By: #### U RTPCR #### [facility] [address] [place] [address] Dr. Benito Schwartz pH (U) 5.5 [pH] Normal 5-9 [facility] Comment on above: Performed By: #### U RTPCR #### [facility] [address] [place] [address] Dr. Benito Schwartz SPEC GRAVITY 1.010 Normal 1.005-<=1.02 5 [facility] Comment on above: Performed By: #### U RTPCR #### [facility] [address] [place] [address] Dr. Benito Schwartz UA PROTEIN Negative Normal NEGATIVE/ TRACE [facility] Comment on above: Performed By: #### U RTPCR #### [facility] [address] [place] [address] Dr. Benito Schwartz Urobilinogen Qn (U) 0.2 {Jagruti'U}/dL Normal 0.2 - 1. 0 [facility] Comment on above: Performed By: #### U RTPCR #### [facility] [address] [place] [address] Dr. Benito Schwartz URINE T PROTEIN CREAT RATIOo n 05-12-2022 Protein (U) [Mass/Vol] 18.3 mg/dL Critically high <=12.0 [facility] Comment on above: Performed By: #### U RTPCR #### [facility] [address] [place] [address] Dr. Benito Schwartz UR PROT CREAT RAT 0.39 Normal [facility] Comment on above: Performed By: #### U RTPCR #### [facility] [address] [place] [address] Dr. Benito Schwartz URINE CREAT 47.44 mg/dL Normal 20.00-300.00 [facility] Comment on above: Performed By: #### U RTPCR #### [facility] [address] [place] [address] Dr. Benito Schwartz HEMOGLOBINon 05-10-2022 Hemoglobin (Bld) [Mass/Vol] 9.6 g/dL Critically low 14.0-18.0 [facility] Comment on above: Performed By: #### F T4, PSASC #### [facility] [address] [place] [address] Dr. Benito Schwartz NM THY SCAN W Britton 04-28-20 NM THY SCAN W UPT EXAMINATION: NM [...] by: JJ HI Date: 2022-04-28 09:05 Normal [facility] T3, TOTAL (TRIIODOTHYRONINE) on 04-09-2022 T3, TOTAL 167 ng/dL Normal 71-180 [facility] Comment on above: Performed By: #### B 12FOL, FETIBC #### [facility] [address] [place] [address] Dr. Benito Schwartz FREE T3on 04-08-2022 FREE T3 6.07 pg/mlL Critically high 2.18-3.98 [facility] Comment on above: Performed By: #### T SH, FT3, BMP #### [facility] [address] [place] [address] Dr. Benito Schwartz FREE T4on 04-08-2022 Free T4 [Mass/Vol] 2.62 ng/dL Critically high 0.76-1.46 [facility] Comment on above: Performed By: #### T SH, FT3, BMP #### [facility] [address] [place] [address] Dr. Benito Schwartz PROF CHEM 8 (BAS METB)on Anion gap [Moles/Vol] 13.5 mmol/L Normal [facility] Comment on above: Performed By: #### B 12FOL, FETIBC #### [facility] [address] [place] [address] Dr. Benito Schwartz Calcium [Mass/Vol] 9.9 mg/dL Normal 8.5-10.[address] [facility] Comment on above: Performed By: #### B 12FOL, FETIBC #### [facility] [address] [place] [address] Dr. Benito Schwartz Chloride [Moles/Vol] 105 mmol/L Normal 98-107 [facility] Comment on above: Performed By: #### B 12FOL, FETIBC #### [facility] [address] [place] [address] Dr. Benito Schwartz CO2 [Moles/Vol] 26.5 mmol/L Normal 21.0-32.0 [facility] Comment on above: Performed By: #### B 12FOL, FETIBC #### [facility] [address] [address] [address] Benito Schwartz Creatinine [Mass/Vol] 2.33 mg/dL Critically high 0.70-1.30 [facility] Comment on above: Performed By: #### B 12FOL, FETIBC #### [facility] [address] [place] [address] Dr. Benito Schwartz EGFR-AF INDONESIAN 33 mL/min/1.73m2 Critically low >=60 [facility] Comment on above: Performed By: #### B 12FOL, FETIBC #### [facility] [address] [place] [address] Dr. Benito Schwartz EGFR-NON AF INDONESIAN 27 mL/min/1.73m2 Critically low >=60 [facility] Comment on above: Performed By: #### B 12FOL, FETIBC #### [facility] [address] [address] [address] Benito Schwartz Glucose [Mass/Vol] 104 mg/dL Normal 74-106 [facility] Comment on above: Performed By: #### B 12FOL, FETIBC #### [facility] [address] [place] [address] Dr. Benito Schwartz Potassium [Moles/Vol] 5.0 mmol/L Normal 3.5-5.1 [facility] Comment on above: Performed By: #### B 12FOL, FETIBC #### [facility] [address] [place] [address] Dr. Benito Schwartz Sodium [Moles/Vol] 140 mmol/L Normal 136-145 [facility] Comment on above: Performed By: #### B 12FOL, FETIBC #### [facility] [address] [place] [address] Dr. Benito Schwartz Urea nitrogen [Mass/Vol] 60.0 mg/dL Critically high 7.0-18 .0 [facility] Comment on above: Performed By: #### B 12FOL, FETIBC #### [facility] [address] [address] [address] Benito Schwartz Urea nitrogen/Creatinine [Mass ratio] 25.8 mg/mg Normal [facility] Comment on above: Performed By: #### B 12FOL, FETIBC #### [facility] [address] [address] [address] Benito Schwartz TSHon 04-08-2022 TSH Qn m[IU]/L Critically low 0.358-3.740 [facility] Comment on above: Performed By: #### T SH, FT3, BMP #### [facility] [address] [address] [address] Benito Schwartz BASIC METABOLIC PANELon 03-16 Calcium [Mass/Vol] 9.1 mg/dL Normal 8.6-10.3 [facility] Comment on above: Order Comment: No: D o not add to previous draw Performed By: #### 1 69, 63256 #### [facility] [address] [place] [address], [place] Chloride [Moles/Vol] 106 mmol/L Normal 98-107 [facility] Comment on above: Order Comment: No: D o not add to previous draw Performed By: #### 1 69, 82084 #### [facility] [address] [place] [address], [place] CO2 [Moles/Vol] 25 mmol/L Normal 21-31 [facility] Comment on above: Order Comment: No: D o not add to previous draw Performed By: #### 1 69, 58755 #### [facility] [address] [place] [address], [place] Creatinine [Mass/Vol] 2.12 mg/dL High 0.70-1.30 [facility] Comment on above: Order Comment: No: D o not add to previous draw Performed By: #### 1 69, 04589 #### [facility] [address] [place] [address], [place] eGFR- 37 ml/min/1.73sq m Abnormal >60 [facility] Comment on above: Order Comment: No: D o not add to previous draw Result Comment: Calc ulation may not be valid for patients over 70 years Performed By: #### 1 69, 73260 #### [facility] [address] [place] [address], [place] eGFR- non- 30 ml/min/1.73sq m Abnormal >60 [facility] Comment on above: Order Comment: No: D o not add to previous draw Result Comment: Calc ulation may not be valid for patients over 70 years Performed By: #### 1 69, 95930 #### [facility] [address] [place] [address], [place] Glucose [Mass/Vol] 93 mg/dL Normal 70-100 [facility] Comment on above: Order Comment: No: D o not add to previous draw Performed By: #### 1 69, 20397 #### [facility] [address] [place] [address], [place] Potassium [Moles/Vol] 3.9 mmol/L Normal 3.5-5.1 [facility] Comment on above: Order Comment: No: D o not add to previous draw Performed By: #### 1 69, 98770 #### [facility] [address] [place] [address], [place] Sodium [Moles/Vol] 141 mmol/L Normal 136-145 [facility] Comment on above: Order Comment: No: D o not add to previous draw Performed By: #### 1 69, 63931 #### [facility] [address] [place] [address], [place] Urea nitrogen [Mass/Vol] 56 mg/dL High 7-25 [facility] Comment on above: Order Comment: No: D o not add to previous draw Performed By: #### 1 69, 25777 #### [facility] [address] CBC COMPLETE BLOOD COUNTon 0 04-02-2022 Erythrocyte distribution width (RBC) [Ratio] 13.6 % Normal 11.5-15.0 [facility] Comment on above: Order Comment: No: D o not add to previous draw Performed By: #### 5 0103 #### [facility] [address] [address], [facility] Hematocrit (Bld) [Volume fraction] 26.2 % Low 39.0-50.0 [facility] Comment on above: Order Comment: No: D o not add to previous draw Performed By: #### 5 3 #### [facility] [address] Hemoglobin (Bld) [Mass/Vol] 8.7 g/dL Low 13.0-17.0 [facility] Comment on above: Order Comment: No: D o not add to previous draw Performed By: #### 5 0103 #### [facility] [address] [facility] [place] [address], [facility] MCH (RBC) [Entitic mass] 29.3 pg Normal 27.0-33.0 [facility] Comment on above: Order Comment: No: D o not add to previous draw Performed By: #### 5 3 #### [facility] [address] [facility] [address], [facility] MCHC (RBC) [Mass/Vol] 33.2 g/dL Normal 32.0-35.0 [facility] Comment on above: Order Comment: No: D o not add to previous draw Performed By: #### 5 0103 #### [facility] [address] [facility] [place] [address], [facility] MCV (RBC) [Entitic vol] 88.2 fL Normal 82.0-98.0 T [facility] Comment on above: Order Comment: No: D o not add to previous draw Performed By: #### 5 0103 #### [facility] [address] [place] [address], [facility] Nucleated RBC/100 WBC (Bld) [Ratio] 0 % Normal 0-0 [facility] Comment on above: Order Comment: No: D o not add to previous draw Performed By: #### 5 0103 #### [facility] [address] [place] [address], [facility] PLAT CNT 190 10*3/uL Normal 150-400 [facility] Comment on above: Order Comment: No: D o not add to previous draw Performed By: #### 5 0103 #### [facility] [address] [facility] [address], [facility] RBC (Bld) [#/Vol] 2.97 10*6/uL Low 4.20-5.70 [facility] Comment on above: Order Comment: No: D o not add to previous draw Performed By: #### 5 0103 #### [facility] [address] [facility] [address], [facility] WBC (Bld) [#/Vol] 5.20 10*3/uL Normal 4.00-10.60 [facility] Comment on above: Order Comment: No: D o not add to previous draw Performed By: #### 5 0103 #### [facility] [address] [facility] [place] [address], [facility] MAGNESIUM BLOODon 04-02-2022 Magnesium [Mass/Vol] 2.2 mg/dL Normal 1.9-2.7 [facility] Comment on above: Order Comment: No: D o not add to previous draw Performed By: #### 1 0070, 65027 #### [facility] [address] [facility] [place] [address], [facility] POC GLUCOSE LABon 04-02-2022 Glucose [Mass/Vol] 99 mg/dL Normal 70-100 [facility] Comment on above: Performed By: #### 5 0608 #### [facility] [address] [place] [address], [facility] BASIC METABOLIC PANELon - Calcium [Mass/Vol] 9.1 mg/dL Normal 8.6-10.3 [facility] Comment on above: Order Comment: No: D o not add to previous draw Performed By: #### 5 0608 #### [facility] [address] [place] [address], [place] Chloride [Moles/Vol] 106 mmol/L Normal 98-107 [facility] Comment on above: Order Comment: No: D o not add to previous draw Performed By: #### 5 0608 #### [facility] [address] [place] [address], [facility] CO2 [Moles/Vol] 25 mmol/L Normal 21-31 [facility] Comment on above: Order Comment: No: D o not add to previous draw Performed By: #### 5 0608 #### [facility] [address] [place] [address], [facility] Creatinine [Mass/Vol] 2.07 mg/dL High 0.70-1.30 [facility] Comment on above: Order Comment: No: D o not add to previous draw Performed By: #### 5 0608 #### [facility] [address] [place] [address], [facility] eGFR- 38 ml/min/1.73sq m Abnormal >60 [facility] Comment on above: Order Comment: No: D o not add to previous draw Result Comment: Calc ulation may not be valid for patients over 70 years Performed By: #### 5 0608 #### [facility] [address] [place] [address], [facility] eGFR- non- 31 ml/min/1.73sq m Abnormal >60 [facility] Comment on above: Order Comment: No: D o not add to previous draw Result Comment: Calc ulation may not be valid for patients over 70 years Performed By: #### 5 0608 #### [facility] [address] [place] [address], [place] Glucose [Mass/Vol] 94 mg/dL Normal 70-100 [facility] Comment on above: Order Comment: No: D o not add to previous draw Performed By: #### 5 0608 #### [facility] [address] [place] [address], [place] Potassium [Moles/Vol] 3.9 mmol/L Normal 3.5-5.1 [facility] Comment on above: Order Comment: No: D o not add to previous draw Performed By: #### 5 0608 #### [facility] [address] [place] [address], [place] Sodium [Moles/Vol] 144 mmol/L Normal 136-145 [facility] Comment on above: Order Comment: No: D o not add to previous draw Performed By: #### 5 0608 #### [facility] [address] [place] [address], [place] Urea nitrogen [Mass/Vol] 54 mg/dL High 7-25 [facility] Comment on above: Order Comment: No: D o not add to previous draw Performed By: #### 5 0608 #### [facility] [address] [place] [address], [place] CBC COMPLETE BLOOD COUNTon 0 - Erythrocyte distribution width (RBC) [Ratio] 13.5 % Normal 11.5-15.0 [facility] Comment on above: Order Comment: No: D o not add to previous draw Performed By: #### 5 0608 #### [facility] [address] [place] [address], [place] Hematocrit (Bld) [Volume fraction] 27.5 % Low 39.0-50.0 [facility] Comment on above: Order Comment: No: D o not add to previous draw Performed By: #### 5 0608 #### [facility] [address] [place] [address], [facility] Hemoglobin (Bld) [Mass/Vol] 8.9 g/dL Low 13.0-17.0 [facility] Comment on above: Order Comment: No: D o not add to previous draw Performed By: #### 5 0608 #### [facility] [address] [facility] [address], [facility] MCH (RBC) [Entitic mass] 29.2 pg Normal 27.0-33.0 [facility] Comment on above: Order Comment: No: D o not add to previous draw Performed By: #### 5 0608 #### [facility] [address] [place] [address], [facility] MCHC (RBC) [Mass/Vol] 32.4 g/dL Normal 32.0-35.0 [facility] Comment on above: Order Comment: No: D o not add to previous draw Performed By: #### 5 0608 #### [facility] [address] [facility] [place] [address], [facility] MCV (RBC) [Entitic vol] 90.2 fL Normal 82.0-98.0 T [facility] Comment on above: Order Comment: No: D o not add to previous draw Performed By: #### 5 0608 #### [facility] [address] [place] [address], [facility] Nucleated RBC/100 WBC (Bld) [Ratio] 0 % Normal 0-0 [facility] Comment on above: Order Comment: No: D o not add to previous draw Performed By: #### 5 0608 #### [facility] [address] [facility] [place] [address], [facility] PLAT CNT 213 10*3/uL Normal 150-400 [facility] Comment on above: Order Comment: No: D o not add to previous draw Performed By: #### 5 0608 #### [facility] [address] RBC (Bld) [#/Vol] 3.05 10*6/uL Low 4.20-5.70 [facility] Comment on above: Order Comment: No: D o not add to previous draw Performed By: #### 5 0608 #### [facility] [address] [place] [address], [facility] WBC (Bld) [#/Vol] 6.02 10*3/uL Normal 4.00-10.60 [facility] Comment on above: Order Comment: No: D o not add to previous draw Performed By: #### 5 0608 #### [facility] [address] Cardiovascular Lab Reporton 04-01-2022 Cardiovascular Lab Report [facility] Patient Name: [facility]al [facility] MR #: [id number] Physician: Sriram Rick, Department of M.D. Medicine Service Date: 03/31/2022 Division of Birthdate: 1940 Cardiology Room #: [id number] Adult Cardiovascular Services [address] [address] Cardiovascular Laboratory Report FINAL IMPRESSIONS: 1. Moderately [...] right internal jugular vein was obtained. A 6-Greenlandic 11 cm sheath was inserted without difficulty. [...] M.D. Date Trans: 04/01/2022 02:03 Jay Jay/hans [id number] cc: Arnie Linda D.O. [address] [place] [id number] Normal [facility] HEMOGLOBIN A1Con 04-01-2022 Glucose [Moles/Vol] 137 mmol/L Normal [facility] Comment on above: Order Comment: If no t done in EDNo: Do not add to previous draw Performed By: #### 5 0103 #### [address] [address], [facility] HbA1c (Bld) [Mass fraction] 6.4 % High 4.0-6.0 [facility] Comment on above: Order Comment: If no t done in EDNo: Do not add to previous draw Performed By: #### 5 0103 #### [facility] [address] [place] [address], [place] MAGNESIUM BLOODon 04-01-2022 Magnesium [Mass/Vol] 2.2 mg/dL Normal 1.9-2.7 [facility] Comment on above: Order Comment: No: D o not add to previous draw Performed By: #### 5 0608 #### [facility] [address] [place] [address], [place] POC GLUCOSE LABon 04-01-2022 Glucose [Mass/Vol] 114 mg/dL High 70-100 [facility] Comment on above: Performed By: #### 5 0103 #### [facility] [address] [place] [address], [place] Glucose [Mass/Vol] 117 mg/dL High 70-100 [facility] Comment on above: Performed By: #### 5 0608 #### [facility] [address] [place] [address], [place] Glucose [Mass/Vol] 139 mg/dL High 70-100 [facility] Comment on above: Performed By: #### 5 0608 #### [facility] [address] [place] [address], [place] Glucose [Mass/Vol] 98 mg/dL Normal 70-100 [facility] Comment on above: Performed By: #### 5 0608 #### [facility] [address] [place] [address], [place] BASIC METABOLIC PANELon 03-16 Calcium [Mass/Vol] 9.1 mg/dL Normal 8.6-10.3 [facility] Comment on above: Order Comment: No: D o not add to previous draw Performed By: #### 4 4396, 78431, 10601, 87877, 38653 #### [facility] [address] [place] [address], [place] Chloride [Moles/Vol] 104 mmol/L Normal 98-107 [facility] Comment on above: Order Comment: No: D o not add to previous draw Performed By: #### 4 4396, 43695, 67448, 78992, 86459 #### [facility] [address] [place] [address], [place] CO2 [Moles/Vol] 27 mmol/L Normal 21-31 [facility] Comment on above: Order Comment: No: D o not add to previous draw Performed By: #### 4 4396, 81253, 12403, 72108, 02009 #### [facility] [address] [place] [address], [place] Creatinine [Mass/Vol] 2.59 mg/dL High 0.70-1.30 [facility] Comment on above: Order Comment: No: D o not add to previous draw Performed By: #### 4 4396, 73496, 50797, 64805, 59981 #### [facility] [address] [place] [address], [place] eGFR- 29 ml/min/1.73sq m Abnormal >60 [facility] Comment on above: Order Comment: No: D o not add to previous draw Result Comment: Calc ulation may not be valid for patients over 70 years Performed By: #### 4 4396, 06852, 52566, 96179, 18887 #### [facility] [address] [place] [address], [place] eGFR- non- 24 ml/min/1.73sq m Abnormal >60 [facility] Comment on above: Order Comment: No: D o not add to previous draw Result Comment: Calc ulation may not be valid for patients over 70 years Performed By: #### 4 4396, 99069, 49994, 36785, 95397 #### [facility] [address] [place] [address], [place] Glucose [Mass/Vol] 90 mg/dL Normal 70-100 [facility] Comment on above: Order Comment: No: D o not add to previous draw Performed By: #### 4 4396, 90674, 32236, 30549, 64847 #### [facility] [address] [place] [address], [facility] Potassium [Moles/Vol] 4.2 mmol/L Normal 3.5-5.1 [facility] Comment on above: Order Comment: No: D o not add to previous draw Performed By: #### 4 4396, 66443, 62017, 88401, 74855 #### [facility] [address] [place] [address], [facility] Sodium [Moles/Vol] 141 mmol/L Normal 136-145 [facility] Comment on above: Order Comment: No: D o not add to previous draw Performed By: #### 4 4396, 55072, 27272, 11650, 79225 #### [facility] [address] [place] [address], [facility] Urea nitrogen [Mass/Vol] 55 mg/dL High 7-25 [facility] Comment on above: Order Comment: No: D o not add to previous draw Performed By: #### 4 4396, 31250, 45893, 69688, 79066 #### [facility] [address] [place] [id number], [facility] CBC COMPLETE BLOOD COUNTon 0 - Erythrocyte distribution width (RBC) [Ratio] 13.6 % Normal 11.5-15.0 [facility] Comment on above: Order Comment: No: D o not add to previous draw Performed By: #### 5 0608 #### [facility] [address] [place] [address], [place] Hematocrit (Bld) [Volume fraction] 27.1 % Low 39.0-50.0 [facility] Comment on above: Order Comment: No: D o not add to previous draw Performed By: #### 5 0608 #### [facility] [address] [place] [address], [facility] Hemoglobin (Bld) [Mass/Vol] 8.7 g/dL Low 13.0-17.0 [facility] Comment on above: Order Comment: No: D o not add to previous draw Performed By: #### 5 0608 #### [facility] [address] [place] [id number], [facility] MCH (RBC) [Entitic mass] 28.8 pg Normal 27.0-33.0 [facility] Comment on above: Order Comment: No: D o not add to previous draw Performed By: #### 5 0608 #### [facility] [address] [place] [address], [facility] MCHC (RBC) [Mass/Vol] 32.1 g/dL Normal 32.0-35.0 [facility] Comment on above: Order Comment: No: D o not add to previous draw Performed By: #### 5 0608 #### [facility] [address] [facility] [address], [facility] MCV (RBC) [Entitic vol] 89.7 fL Normal 82.0-98.0 T [facility] Comment on above: Order Comment: No: D o not add to previous draw Performed By: #### 5 0608 #### [facility] [address] [facility] [address], [facility] Nucleated RBC/100 WBC (Bld) [Ratio] 0 % Normal 0-0 [facility] Comment on above: Order Comment: No: D o not add to previous draw Performed By: #### 5 0608 #### [facility] [address] [facility] [address], [facility] PLAT CNT 184 10*3/uL Normal 150-400 [facility] Comment on above: Order Comment: No: D o not add to previous draw Performed By: #### 5 0608 #### [facility] [address] [place] [address], [facility] RBC (Bld) [#/Vol] 3.02 10*6/uL Low 4.20-5.70 [facility] Comment on above: Order Comment: No: D o not add to previous draw Performed By: #### 5 0608 #### [facility] [address] [place] [address], [facility] WBC (Bld) [#/Vol] 5.93 10*3/uL Normal 4.00-10.60 [facility] Comment on above: Order Comment: No: D o not add to previous draw Performed By: #### 5 0608 #### [facility] [address] [facility] [address], [facility] FREE T4on 03-31-2022 Free T4 [Mass/Vol] 4.55 ng/dL High 0.71-1.85 [facility] Comment on above: Performed By: #### 5 0103 #### [facility] [address] [place] [id number], [facility] MAGNESIUM BLOODon 03-31-2022 Magnesium [Mass/Vol] 2.3 mg/dL Normal 1.9-2.7 [facility] Comment on above: Order Comment: No: D o not add to previous draw Performed By: #### 4 4396, 59762, 36909, 16370, 60204 #### [facility] [address] [facility] [address], [facility] PHOSPHORUS BLOODon 2 Phosphate [Mass/Vol] 5.4 mg/dL High 2.5-5.0 [facility] Comment on above: Order Comment: No: D o not add to previous draw Performed By: #### 4 4396, 43527, 14680, 85200, 76174 #### [facility] [address] [place] [address], [facility] POC GLUCOSE LABon 03-31-2022 Glucose [Mass/Vol] 161 mg/dL High 70-100 [facility] Comment on above: Performed By: #### 5 0608 #### [facility] [address] [facility]. [address] Glucose [Mass/Vol] 108 mg/dL High 70-100 [facility] Comment on above: Performed By: #### 5 0608 #### [facility] [address] [facility]. [address] POC SARS COV2 ANTIGEN NEGATI VEon 03-31-2022 POC SARS COV2 ANTIGEN NEG Negative Normal NEGATIVE The [facility] Comment on above: Result Comment: Nega [...] antigen from SARS-CoV-2 in direct nasopharyngeal swab (LYRIC WRITER) specimens from individuals who are suspected of [...] Accreditation. Performed By: #### 5 0103 #### [facility] [address] [facility]. [address] TSH3on 03-31-2022 TSH 3RD GENERATION <0.01 Critically low 0.34-5.60 Th e [facility] Comment on above: Performed By: #### 4 4396, 78037, 23495, 52969, 83950 #### [facility] [address] [place] [address], [facility] BASIC METABOLIC PANELon 06-1 Calcium [Mass/Vol] 9.8 mg/dL Normal 8.6-10.3 [facility] Comment on above: Order Comment: No: D o not add to previous draw Performed By: #### 5 0103 #### [facility] [address] [place] [address], [place] Chloride [Moles/Vol] 103 mmol/L Normal 98-107 [facility] Comment on above: Order Comment: No: D o not add to previous draw Performed By: #### 5 0103 #### [facility] [address] [place] [address], [facility] CO2 [Moles/Vol] 29 mmol/L Normal 21-31 [facility] Comment on above: Order Comment: No: D o not add to previous draw Performed By: #### 5 0103 #### [facility] [address] [place] [address], [facility] Creatinine [Mass/Vol] 2.60 mg/dL High 0.70-1.30 [facility] Comment on above: Order Comment: No: D o not add to previous draw Performed By: #### 5 0103 #### [facility] [address] [place] [address], [facility] eGFR- 29 ml/min/1.73sq m Abnormal >60 [facility] Comment on above: Order Comment: No: D o not add to previous draw Result Comment: Calc ulation may not be valid for patients over 70 years Performed By: #### 5 0103 #### [facility] [address] [place] [address], [facility] eGFR- non- 24 ml/min/1.73sq m Abnormal >60 [facility] Comment on above: Order Comment: No: D o not add to previous draw Result Comment: Calc ulation may not be valid for patients over 70 years Performed By: #### 5 0103 #### [facility] [address] [place] [address], [facility] Glucose [Mass/Vol] 109 mg/dL High 70-100 [facility] Comment on above: Order Comment: No: D o not add to previous draw Performed By: #### 5 0103 #### [facility] [address] [place] [id number], [facility] Potassium [Moles/Vol] 4.0 mmol/L Normal 3.5-5.1 [facility] Comment on above: Order Comment: No: D o not add to previous draw Performed By: #### 5 0103 #### [facility] [address] [place] [address], [facility] Sodium [Moles/Vol] 141 mmol/L Normal 136-145 [facility] Comment on above: Order Comment: No: D o not add to previous draw Performed By: #### 5 0103 #### [facility] [address] [place] [address], [facility] Urea nitrogen [Mass/Vol] 55 mg/dL High 7-25 [facility] Comment on above: Order Comment: No: D o not add to previous draw Performed By: #### 5 0103 #### [facility] [address] [facility] [address], [facility] CBC W/DIFFon 03-30-2022 ABS IMM GRANS 0.0 10*3/uL Normal 0.0-0.2 [facility] Comment on above: Performed By: #### 5 0103 #### [facility] [address] [facility] [place] [address], [facility] ABS NEUTROPHILS 4.1 10*3/uL Normal 1.6-7.6 The [facility] Comment on above: Performed By: #### 5 0103 #### [facility] [address] [place] [address], [facility] Basophils (Bld) [#/Vol] 0.0 10*3/uL Normal 0.0-0.2 [facility] Comment on above: Performed By: #### 5 0103 #### [facility] [address] [place] [address], [facility] Basophils/100 WBC (Bld) 0.3 % Normal 0.0-1.0 T he [facility] Comment on above: Performed By: #### 5 0103 #### [facility] [address] [address], [facility] Eosinophils (Bld) [#/Vol] 0.3 10*3/uL Normal 0.0-0.5 [facility] Comment on above: Performed By: #### 5 0103 #### [facility] [address] [place] [address], [facility] Eosinophils/100 WBC (Bld) 5.3 % Normal 0.0-6.0 [facility] Comment on above: Performed By: #### 5 0103 #### [facility] [address] [facility]. [address] Erythrocyte distribution width (RBC) [Ratio] 13.7 % Normal 11.5-15.0 [facility] Comment on above: Performed By: #### 5 3 #### [facility] [address] [facility] [address], [facility] Hematocrit (Bld) [Volume fraction] 30.2 % Low 39.0-50.0 [facility] Comment on above: Performed By: #### 5 0103 #### [facility] [address] [facility] [place] [address], [facility] Hemoglobin (Bld) [Mass/Vol] 9.8 g/dL Low 13.0-17.0 [facility] Comment on above: Performed By: #### 5 3 #### [facility] [address] [facility] [address], [facility] IMMATURE GRANS 0.3 % Normal 0.0-1.0 [facility] Comment on above: Performed By: #### 5 0103 #### [facility] [address] [facility]. [address] Lymphocytes (Bld) [#/Vol] 1.1 10*3/uL Low 1.2-4.0 [facility] Comment on above: Performed By: #### 5 0103 #### [facility] [address] Lymphocytes/100 WBC (Bld) 17.9 % Low 20.0-45.0 [facility] Comment on above: Performed By: #### 5 0103 #### [facility] [address] MCH (RBC) [Entitic mass] 29.3 pg Normal 27.0-33.0 [facility] Comment on above: Performed By: #### 5 0103 #### [facility] [address] MCHC (RBC) [Mass/Vol] 32.5 g/dL Normal 32.0-35.0 [facility] Comment on above: Performed By: #### 5 0103 #### [facility] [address] [place] [address], [facility] MCV (RBC) [Entitic vol] 90.4 fL Normal 82.0-98.0 T [facility] Comment on above: Performed By: #### 5 0103 #### [facility] [address] [facility] [place] [address], [facility] Monocytes (Bld) [#/Vol] 0.7 10*3/uL Normal 0.1-1.0 [facility] Comment on above: Performed By: #### 5 3 #### [facility] [address] [place] [address], [place] MONOS 11.6 % Normal 5.0-12.0 [facility] Comment on above: Performed By: #### 5 0103 #### [facility] [address] [facility] [place] [address], [facility] Neutrophils/100 WBC (Bld) 64.6 % Normal 40.0-72.0 [facility] Comment on above: Performed By: #### 5 0103 #### [facility] [address] [facility] [place] [address], [facility] Nucleated RBC/100 WBC (Bld) [Ratio] 0 % Normal 0-0 [facility] Comment on above: Performed By: #### 5 0103 #### [facility] [address] [facility] [place] [address], [facility] PLAT CNT 215 10*3/uL Normal 150-400 [facility] Comment on above: Performed By: #### 5 0103 #### [facility] [address] [facility] [place] [address], [facility] RBC (Bld) [#/Vol] 3.34 10*6/uL Low 4.20-5.70 [facility] Comment on above: Performed By: #### 5 0103 #### [facility] [address] [place] [address], [facility] WBC (Bld) [#/Vol] 6.38 10*3/uL Normal 4.00-10.60 [facility] Comment on above: Performed By: #### 5 102 #### [facility] [address] [place] [address], [facility] MAGNESIUM BLOODon 03-30-2022 Magnesium [Mass/Vol] 2.3 mg/dL Normal 1.9-2.7 [facility] Comment on above: Order Comment: No: D o not add to previous draw Performed By: #### 5 102 #### [facility] [address] [place] [address], [place] TROPONIN-Ion 03-30-2022 Troponin I.cardiac [Mass/Vol] 0.04 ng/mL Normal 0.00-0.04 [facility] Comment on above: Order Comment: No: D o not add to previous draw Result Comment: REFE RENCE RANGES: 0.00 - 0.04 ng/ml NORMAL 0.05 - 0.50 ng/ml INDETERMINATE > 0.50 ng/ml CONSISTENT WITH AN M.I. Performed By: #### 5 0103 #### [facility] [address] [place] [address], [facility] BNPon 03-25-2022 Natriuretic peptide B (Bld) [Mass/Vol] 7410.0 pg/mL Critically high <=1,800.0 [facility] Comment on above: Performed By: #### F T4 #### [facility] [address] [place] [address] Dr. Benito Schwartz PROF CHEM 8 (BAS METB)on Anion gap [Moles/Vol] 14.5 mmol/L Normal Th [facility] Comment on above: Performed By: #### F T4 #### [facility] [address] [address] [address] Benito Schwartz Calcium [Mass/Vol] 9.6 mg/dL Normal 8.5-10.[address] [facility] Comment on above: Performed By: #### F T4 #### [facility] [address] [address] [address] Benito Schwartz Chloride [Moles/Vol] 105 mmol/L Normal 98-107 [facility] Comment on above: Performed By: #### F T4 #### [facility] [address] [address] [address] Benito Schwartz CO2 [Moles/Vol] 27.6 mmol/L Normal 21.0-32.0 [facility] Comment on above: Performed By: #### F T4 #### [facility] [address] [address] [address] Benito Schwartz Creatinine [Mass/Vol] 2.48 mg/dL Critically high 0.70-1.30 [facility] Comment on above: Performed By: #### F T4 #### [facility] [address] [address] [address] Benito Schwartz EGFR-AF INDONESIAN 31 mL/min/1.73m2 Critically low >=60 [facility] Comment on above: Performed By: #### F T4 #### [facility] [address] [address] [address] Benito Schwartz EGFR-NON AF INDONESIAN 25 mL/min/1.73m2 Critically low >=60 [facility] Comment on above: Performed By: #### F T4 #### [facility] [address] [address] [address] Benito Schwartz Glucose [Mass/Vol] 116 mg/dL Critically high 74-106 T [facility] Comment on above: Performed By: #### F T4 #### [facility] [address] [address] [address] Benito Schwartz Potassium [Moles/Vol] 4.1 mmol/L Normal 3.5-5.1 [facility] Comment on above: Performed By: #### F T4 #### [facility] [address] [address] [address] Benito Schwartz Sodium [Moles/Vol] 143 mmol/L Normal 136-[address] [facility] Comment on above: Performed By: #### F T4 #### [facility] [address] [address] [address] Benito Schwartz Urea nitrogen [Mass/Vol] 56.0 mg/dL Critically high 7.0-18 .0 [facility] Comment on above: Performed By: #### F T4 #### [facility] [address] [address] [address] Benito Schwartz Urea nitrogen/Creatinine [Mass ratio] 22.6 mg/mg Normal [facility] Comment on above: Performed By: #### F T4 #### [facility] [address] [address] [address] Benito Schwartz CBC AUTO DIFFon 03-07-2022 BASO # 0.0 103/ul Normal 0.0-0.1 [facility] Comment on above: Performed By: #### V ITAD #### [facility] [address] [address] [address] Benito Schwartz Basophils/100 WBC (Bld) 0.3 % Normal 0.2-2.0 [facility] Comment on above: Performed By: #### V ITAD #### [facility] [address] [place] [address] Dr. Benito Schwartz EO # 0.1 103/ul Normal 0.0-0.7 [facility] Comment on above: Performed By: #### V ITAD #### [facility] [address] [place] [address] Dr. Benito Schwartz Eosinophils/100 WBC (Bld) 2.4 % Normal 0.9-7.0 [facility] Comment on above: Performed By: #### V ITAD #### [facility] [address] [place] [address] Dr. Benito Schwartz Erythrocyte distribution width (RBC) [Ratio] 13.4 % Normal 11.0-15.0 [facility] Comment on above: Performed By: #### V ITAD #### [facility] [address] [place] [address] Dr. Benito Schwartz Hematocrit (Bld) [Volume fraction] 27.7 % Critically low 42.0-54.0 [facility] Comment on above: Performed By: #### V ITAD #### [facility] [address] [place] [address] Dr. Benito Schwartz Hemoglobin (Bld) [Mass/Vol] 8.8 g/dL Critically low 14.0-18.0 [facility] Comment on above: Performed By: #### V ITAD #### [facility] [address] [place] [address] Dr. Benito Schwartz IG # 0.02 10e3/ul Normal 0.00-0.03 [facility] Comment on above: Performed By: #### V ITAD #### [facility] [address] [place] [address] Dr. Benito Schwartz IG % 0.3 % Normal 0.0-0.5 [facility] Comment on above: Performed By: #### V ITAD #### [facility] [address] [address] [address] Benito Schwartz LYMPH # 1.1 103/ul Critically low 1.2-3.8 [facility] Comment on above: Performed By: #### V ITAD #### [facility] [address] [address] [address] Benito Schwartz Lymphocytes/100 WBC (Bld) 17.9 % Critically low 20.5-60.0 [facility] Comment on above: Performed By: #### V ITAD #### [facility] [address] [address] [address] Benito Schwartz MANUAL DIFF REQ NO Normal [facility] Comment on above: Performed By: #### V ITAD #### [facility] [address] [place] [address] Dr. Benito Schwartz MCH (RBC) [Entitic mass] 29.0 pg Normal 25.9-34.0 [facility] Comment on above: Performed By: #### V ITAD #### [facility] [address] [address] [address] Benito Schwartz MCHC (RBC) [Mass/Vol] 31.8 g/dL Normal 29.9-35.2 [facility] Comment on above: Performed By: #### V ITAD #### [facility] [address] [address] [address] Benito Schwartz MCV (RBC) [Entitic vol] 91.4 fL Normal 80.0-94.0 [facility] Comment on above: Performed By: #### V ITAD #### [facility] [address] [address] [address] Benito Schwartz MONO # 0.9 103/ul Critically high 0.3-0.8 [facility] Comment on above: Performed By: #### V ITAD #### [facility] [address] [address] [address] Benito Schwartz Monocytes/100 WBC (Bld) 15.3 % Critically high 1.7-12. 0 [facility] Comment on above: Performed By: #### V ITAD #### [facility] [address] [address] [address] Benito Schwartz NEUT # 3.7 103/ul Normal 1.4-6.5 [facility] Comment on above: Performed By: #### V ITAD #### [facility] [address] [address] [address] Benito Schwartz Neutrophils/100 WBC (Bld) 63.8 % Normal 43.0-75.0 [facility] Comment on above: Performed By: #### V ITAD #### [facility] [address] [place] [address] Dr. Benito Schwartz Platelet mean volume (Bld) [Entitic vol] 9.8 fL Normal 9.5-13.5 [facility] Comment on above: Performed By: #### V ITAD #### [facility] [address] [address] [address] Benito Schwartz PLT 212 103/ul Normal 150-450 [facility] Comment on above: Performed By: #### V ITAD #### [facility] [address] [address] [address] Benito Schwartz RBC 3.03 106/ul Critically low 4.70-6.10 [facility] Comment on above: Performed By: #### V ITAD #### [facility] [address] [address] [address] Benito Schwartz WBC 5.9 103/ul Normal 4.0-11.0 [facility] Comment on above: Performed By: #### V ITAD #### [facility] [address] [place] [address] Dr. Benito Schwartz ECHOCARDIO M/2D COMPLETEon 0 03-07-2022 ECHOCARDIO M/2D COMPLETE Patient: NAS REN Exam Date: 03/07/2022 : 1940 Gender:M Ordering : DR RUPINDER GRIGSBY . Admission #: [id number] Family : DR ARNIE LINDA D.O. Order #: [id number] CLICK HERE TO VIEW EXAM ECHOCARDIOGRAM REPORT [...] Area(A4C): 23.30 cm2 Left Atrium Systolic Volume(A2C): 94686 mm3 Left Atrium Systolic Volume(A4C): 95878 mm3 Mitral Valve MV E to A [...] Rick M.D. on 03/08/2022 at 11:16 Normal [facility] OCC BLD IMMUNO SCREENon 02-14 OCCULT BLOOD Negative Normal NEGATIVE [facility] Comment on above: Performed By: #### V ITAD #### [facility] [address] [place] [address] Dr. Benito Schwartz POINT OF CARE GLUCOSEon 02-14 Glucose [Mass/Vol] 124 mg/dL Critically high 74-106 T [facility] Comment on above: Performed By: #### B 12FOKasia FETIBC #### [facility] [address] [place] [address] Dr. Benito Schwartz PROF CHEM 8 (BAS METB)on Anion gap [Moles/Vol] 13.1 mmol/L Normal [facility] Comment on above: Performed By: #### B 12FOL FETIBC #### [facility] [address] [place] [address] Dr. Benito Schwartz Calcium [Mass/Vol] 9.2 mg/dL Normal 8.5-10.[address] [facility] Comment on above: Performed By: #### B 12FOL FETIBC #### [facility] [address] [address] [address] Benito Schwartz Chloride [Moles/Vol] 105 mmol/L Normal 98-107 [facility] Comment on above: Performed By: #### B 12FOL, FETIBC #### [facility] [address] [place] [address] Dr. Benito Schwartz CO2 [Moles/Vol] 28.6 mmol/L Normal 21.0-32.0 [facility] Comment on above: Performed By: #### B 12FOL, FETIBC #### [facility] [address] [address] [address] Benito Schwartz Creatinine [Mass/Vol] 2.22 mg/dL Critically high 0.70-1.30 [facility] Comment on above: Performed By: #### B 12FOL, FETIBC #### [facility] [address] [place] [address] Dr. Benito Schwartz EGFR-AF INDONESIAN 35 mL/min/1.73m2 Critically low >=60 [facility] Comment on above: Performed By: #### B 12FOL, FETIBC #### [facility] [address] [place] [address] Dr. Benito Schwartz EGFR-NON AF INDONESIAN 29 mL/min/1.73m2 Critically low >=60 [facility] Comment on above: Performed By: #### B 12FOL, FETIBC #### [facility] [address] [place] [address] Dr. Benito Schwartz Glucose [Mass/Vol] 110 mg/dL Critically high 74-106 [facility] Comment on above: Performed By: #### B 12FOL, FETIBC #### [facility] [address] [place] [address] Dr. Benito Schwartz Potassium [Moles/Vol] 3.7 mmol/L Normal 3.5-5.1 [facility] Comment on above: Performed By: #### B 12FOL, FETIBC #### [facility] [address] [place] [address] Dr. Benito Schwartz Sodium [Moles/Vol] 143 mmol/L Normal 136-[address] [facility] Comment on above: Performed By: #### B 12FOL, FETIBC #### [facility] [address] [place] [address] Dr. Benito Schwartz Urea nitrogen [Mass/Vol] 66.0 mg/dL Critically high 7.0-18 .0 [facility] Comment on above: Performed By: #### B 12FOL, FETIBC #### [facility] [address] [place] [address] Dr. Benito Schwartz Urea nitrogen/Creatinine [Mass ratio] 29.7 mg/mg Normal [facility] Comment on above: Performed By: #### B 12FOL, FETIBC #### [facility] [address] [place] [address] Dr. Benito Schwartz CBC AUTO DIFFon 03-06-2022 BASO # 0.0 103/ul Normal 0.0-0.1 [facility] Comment on above: Performed By: #### B 12FOL, FETIBC #### [facility] [address] [place] [address] Dr. Benito Schwartz Basophils/100 WBC (Bld) 0.2 % Normal 0.2-2.0 [facility] Comment on above: Performed By: #### B 12FOL, FETIBC #### [facility] [address] [place] [address] Dr. Benito Schwartz EO # 0.1 103/ul Normal 0.0-0.7 [facility] Comment on above: Performed By: #### B 12FOL, FETIBC #### [facility] [address] [place] [address] Dr. Benito Schwartz Eosinophils/100 WBC (Bld) 2.4 % Normal 0.9-7.0 [facility] Comment on above: Performed By: #### B 12FOL, FETIBC #### [facility] [address] [place] [address] Dr. Benito Schwartz Erythrocyte distribution width (RBC) [Ratio] 13.8 % Normal 11.0-15.0 [facility] Comment on above: Performed By: #### B 12FOL, FETIBC #### [facility] [address] [place] [address] Dr. Benito cShwartz Hematocrit (Bld) [Volume fraction] 27.7 % Critically low 42.0-54.0 [facility] Comment on above: Performed By: #### B 12FOL, FETIBC #### [facility] [address] [place] [address] Dr. Benito Schwartz Hemoglobin (Bld) [Mass/Vol] 8.7 g/dL Critically low 14.0-18.0 [facility] Comment on above: Performed By: #### B 12FOL, FETIBC #### [facility] [address] [place] [address] Dr. Benito Schwartz IG # 0.02 10e3/ul Normal 0.00-0.03 [facility] Comment on above: Performed By: #### B 12FOL, FETIBC #### [facility] [address] [place] [address] Dr. Benito Schwartz IG % 0.3 % Normal 0.0-0.5 [facility] Comment on above: Performed By: #### B 12FOL, FETIBC #### [facility] [address] [place] [address] Dr. Benito Schwartz LYMPH # 1.0 103/ul Critically low 1.2-3.8 [facility] Comment on above: Performed By: #### B 12FOL, FETIBC #### [facility] [address] [place] [address] Dr. Benito Schwartz Lymphocytes/100 WBC (Bld) 16.7 % Critically low 20.5-60.0 [facility] Comment on above: Performed By: #### B 12FOL, FETIBC #### [facility] [address] [place] [address] Dr. Benito Schwartz MANUAL DIFF REQ NO Normal [facility] Comment on above: Performed By: #### B 12FOL, FETIBC #### [facility] [address] [place] [address] Dr. Benito Schwartz MCH (RBC) [Entitic mass] 29.1 pg Normal 25.9-34.0 [facility] Comment on above: Performed By: #### B 12FOL, FETIBC #### [facility] [address] [place] [address] Dr. Benito Schwartz MCHC (RBC) [Mass/Vol] 31.4 g/dL Normal 29.9-35.2 [facility] Comment on above: Performed By: #### B 12FOL, FETIBC #### [facility] [address] [place] [address] Dr. Benito Schwartz MCV (RBC) [Entitic vol] 92.6 fL Normal 80.0-94.0 [facility] Comment on above: Performed By: #### B 12FOL, FETIBC #### [facility] [address] [place] [address] Dr. Benito Schwartz MONO # 0.9 103/ul Critically high 0.3-0.8 [facility] Comment on above: Performed By: #### B 12FOL, FETIBC #### [facility] [address] [place] [address] Dr. Benito Schwartz Monocytes/100 WBC (Bld) 15.3 % Critically high 1.7-12. 0 [facility] Comment on above: Performed By: #### B 12FOL, FETIBC #### [facility] [address] [place] [address] Dr. Benito Schwartz NEUT # 3.7 103/ul Normal 1.4-6.5 [facility] Comment on above: Performed By: #### B 12FOL, FETIBC #### [facility] [address] [place] [address] Dr. Benito Schwartz Neutrophils/100 WBC (Bld) 65.1 % Normal 43.0-75.0 [facility] Comment on above: Performed By: #### B 12FOL, FETIBC #### [facility] [address] [place] [address] Dr. Benito Schwartz Platelet mean volume (Bld) [Entitic vol] 9.7 fL Normal 9.5-13.5 [facility] Comment on above: Performed By: #### B 12FOL, FETIBC #### [facility] [address] [address] [address] Benito Schwartz PLT 205 103/ul Normal 150-450 [facility] Comment on above: Performed By: #### B 12FOL, FETIBC #### [facility] [address] [address] [address] Benito Schwartz RBC 2.99 106/ul Critically low 4.70-6.10 [facility] Comment on above: Performed By: #### B 12FOL, FETIBC #### [facility] [address] [address] [address] Benito Schwartz WBC 5.7 103/ul Normal 4.0-11.0 [facility] Comment on above: Performed By: #### B 12FOL, FETIBC #### [facility] [address] [address] [address] HEAD WO CONon [...] by: ANTHONY TRACEY Date: 2022-03-06 12:33 Normal [facility] IRON AND TIBCon 03-06-2022 % SATURATION 24.7 % Normal [facility] Comment on above: Performed By: #### B 12FOL, FETIBC #### [facility] [address] [address] [address] Benito Schwartz Iron [Mass/Vol] 55.0 ug/dL Critically low 65.0-175.0 [facility] Comment on above: Performed By: #### B 12FOL, FETIBC #### [facility] [address] [place] [address] Dr. Benito Schwartz TIBC DIRECT 223.0 ug/dL Critically low 250.0-450.0 [facility] Comment on above: Performed By: #### B 12FOL, FETIBC #### [facility] [address] [place] [address] Dr. Benito Schwartz POINT OF CARE GLUCOSEon 02-14 Glucose [Mass/Vol] 145 mg/dL Critically high 74-106 [facility] Comment on above: Performed By: #### V ITAD #### [facility] [address] [place] [address] Dr. Benito Schwartz PROF CHEM 8 (BAS METB)on Anion gap [Moles/Vol] 14.6 mmol/L Normal [facility] Comment on above: Performed By: #### V ITAD #### [facility] [address] [place] [address] Dr. Benito Schwartz Calcium [Mass/Vol] 9.0 mg/dL Normal 8.5-10.[address] [facility] Comment on above: Performed By: #### V ITAD #### [facility] [address] [place] [address] Dr. Benito Schwartz Chloride [Moles/Vol] 106 mmol/L Normal 98-107 [facility] Comment on above: Performed By: #### V ITAD #### [facility] [address] [place] [address] Dr. Benito Schwartz CO2 [Moles/Vol] 26.3 mmol/L Normal 21.0-32.0 [facility] Comment on above: Performed By: #### V ITAD #### [facility] [address] [place], [place] [id number] Dr. Benito Schwartz Creatinine [Mass/Vol] 2.40 mg/dL Critically high 0.70-1.30 [facility] Comment on above: Performed By: #### V ITAD #### [facility] [address] [place] [address] Dr. Benito Schwartz EGFR-AF INDONESIAN 32 mL/min/1.73m2 Critically low >=60 [facility] Comment on above: Performed By: #### V ITAD #### [facility] [address] [place] [address] Dr. Benito Schwartz EGFR-NON AF INDONESIAN 26 mL/min/1.73m2 Critically low >=60 [facility] Comment on above: Performed By: #### V ITAD #### [facility] [address] [place] [address] Dr. Benito Schwartz Glucose [Mass/Vol] 108 mg/dL Critically high 74-106 [facility] Comment on above: Performed By: #### V ITAD #### [facility] [address] [place] [address] Dr. Benito Schwartz Potassium [Moles/Vol] 3.9 mmol/L Normal 3.5-5.1 [facility] Comment on above: Performed By: #### V ITAD #### [facility] [address] [place] [address] Dr. Benito Schwartz Sodium [Moles/Vol] 143 mmol/L Normal 136-[address] [facility] Comment on above: Performed By: #### V ITAD #### [facility] [address] [place] [address] Dr. Benito Schwartz Urea nitrogen [Mass/Vol] 72.0 mg/dL Critically high 7.0-18 .0 [facility] Comment on above: Performed By: #### V ITAD #### [facility] [address] [place] [address] Dr. Benito Schwartz Urea nitrogen/Creatinine [Mass ratio] 30.0 mg/mg Normal [facility] Comment on above: Performed By: #### V ITAD #### [facility] [address] [place] [address] Dr. Benito Schwartz VIT B12 AND FOLATEon Cobalamin (Vitamin B12) [Mass/Vol] 432.0 pg/mL Normal 193.0-986.0 [facility] Comment on above: Performed By: #### B 12FOL, FETIBC #### [facility] [address] [place] [address] Dr. Benito Schwartz FOLATE 21.60 ng/mL Normal 8.60-58.90 [facility] Comment on above: Performed By: #### B 12FOL, FETIBC #### [facility] [address] [place] [address] Dr. Benito Schwartz BNPon 03-05-2022 Natriuretic peptide B (Bld) [Mass/Vol] 6910.0 pg/mL Critically high <=1,800.0 [facility] Comment on above: Result Comment: Test Repeated. Critical Value Verified Performed By: #### B 12FOL, FETIBC #### [facility] [address] [place] [address] Dr. Benito Schwartz CBC AUTO DIFFon 03-05-2022 BASO # 0.0 103/ul Normal 0.0-0.1 [facility] Comment on above: Performed By: #### F T4, PSASC #### [facility] [address] [place] [address] Dr. Benito Schwartz Basophils/100 WBC (Bld) 0.3 % Normal 0.2-2.0 [facility] Comment on above: Performed By: #### F T4, PSASC #### [facility] [address] [place] [address] Dr. Benito Schwartz EO # 0.2 103/ul Normal 0.0-0.7 [facility] Comment on above: Performed By: #### F T4, PSASC #### [facility] [address] [place] [address] Dr. Benito Schwartz Eosinophils/100 WBC (Bld) 2.7 % Normal 0.9-7.0 [facility] Comment on above: Performed By: #### F T4, PSASC #### [facility] [address] [address] [address] Benito Schwartz Erythrocyte distribution width (RBC) [Ratio] 13.7 % Normal 11.0-15.0 [facility] Comment on above: Performed By: #### F T4, PSASC #### [facility] [address] [place] [address] Dr. Benito Schwartz Hematocrit (Bld) [Volume fraction] 27.9 % Critically low 42.0-54.0 [facility] Comment on above: Performed By: #### F T4, PSASC #### [facility] [address] [place] [address] Dr. Benito Schwartz Hemoglobin (Bld) [Mass/Vol] 8.9 g/dL Critically low 14.0-18.0 [facility] Comment on above: Performed By: #### F T4, PSASC #### [facility] [address] [place] [address] Dr. Benito Schwartz IG # 0.01 10e3/ul Normal 0.00-0.03 [facility] Comment on above: Performed By: #### F T4, PSASC #### [facility] [address] [place] [address] Dr. Benito Schwartz IG % 0.2 % Normal 0.0-0.5 [facility] Comment on above: Performed By: #### F T4, PSASC #### [facility] [address] [place] [address] Dr. Benito Schwartz LYMPH # 1.3 103/ul Normal 1.2-3.8 [facility] Comment on above: Performed By: #### F T4, PSASC #### [facility] [address] [place] [address] Dr. Benito Schwartz Lymphocytes/100 WBC (Bld) 21.5 % Normal 20.5-60.0 [facility] Comment on above: Performed By: #### F T4, PSASC #### [facility] [address] [place] [address] Dr. Benito Schwartz MANUAL DIFF REQ NO Normal [facility] Comment on above: Performed By: #### F T4, PSASC #### [facility] [address] [place] [address] Dr. Benito Schwartz MCH (RBC) [Entitic mass] 29.5 pg Normal 25.9-34.0 [facility] Comment on above: Performed By: #### F T4, PSASC #### [facility] [address] [place] [address] Dr. Benito Schwartz MCHC (RBC) [Mass/Vol] 31.9 g/dL Normal 29.9-35.2 [facility] Comment on above: Performed By: #### F T4, PSASC #### [facility] [address] [place] [address] Dr. Benito Schwartz MCV (RBC) [Entitic vol] 92.4 fL Normal 80.0-94.0 [facility] Comment on above: Performed By: #### F T4, PSASC #### [facility] [address] [place] [address] Dr. Benito Schwartz MONO # 1.0 103/ul Critically high 0.3-0.8 [facility] Comment on above: Performed By: #### F T4, PSASC #### [facility] [address] [place] [address] Dr. Benito Schwartz Monocytes/100 WBC (Bld) 16.3 % Critically high 1.7-12. 0 [facility] Comment on above: Performed By: #### F T4, PSASC #### [facility] [address] [place] [address] Dr. Benito Schwartz NEUT # 3.5 103/ul Normal 1.4-6.5 [facility] Comment on above: Performed By: #### F T4, PSASC #### [facility] [address] [place] [address] Dr. Benito Schwartz Neutrophils/100 WBC (Bld) 59.0 % Normal 43.0-75.0 [facility] Comment on above: Performed By: #### F T4, PSASC #### [facility] [address] [place] [address] Dr. Benito Schwartz Platelet mean volume (Bld) [Entitic vol] 9.5 fL Normal 9.5-13.5 [facility] Comment on above: Performed By: #### F T4, PSASC #### [facility] [address] [place] [address] Dr. Benito Schwartz PLT 213 103/ul Normal 150-450 [facility] Comment on above: Performed By: #### F T4, PSASC #### [facility] [address] [address] [address] Benito Schwartz RBC 3.02 106/ul Critically low 4.70-6.10 [facility] Comment on above: Performed By: #### F T4, PSASC #### [facility] [address] [place] [address] Dr. Benito Schwartz WBC 5.9 103/ul Normal 4.0-11.0 [facility] Comment on above: Performed By: #### F T4, PSASC #### [facility] [address] [place] [address] Dr. Benito Schwartz CULTURE BLOODon 03-05-2022 Microscopic examination of blood, culture Culture Observations: NO GROWTH AT 5 DAYS. Normal [facility] Comment on above: Performed By: #### V ITAD #### [facility] [address] [place] [address] Dr. Benito Schwartz Covid-19 PCR (CVDTB)on 02-14 SARS-CoV-2 (COVID-19) RNA ZITA+probe Ql (Unsp spec) Not detected Normal NOT DETECTED [facility] Comment on above: Result Comment: This test is not yet approved or cleared by the [place] FDA. When there are no FDA-approved or cleared tests available, and other criteria are met, FDA can make tests available under an emergency access mechanism called an Emergency Use Authorization (EUA). The EUA for this test is supported by the [place] of Health and Human Service's (HHS's) declaration [...] SARS-CoV-2. Performed By: #### C BC #### [facility] [address] [place] [address] Dr. Benito Schwartz FREE T4on 03-05-2022 Free T4 [Mass/Vol] ng/dL Critically high 0.76-1.46 [facility] Comment on above: Performed By: #### C BC #### [facility] [address] [place] [address] Dr. Benito Schwartz LACTATE/LACTIC ACIDon 2021 Lactate [Moles/Vol] 1.2 mmol/L Normal 0.4-1.9 [facility] Comment on above: Performed By: #### F T4 #### [facility] [address] [place] [address] Dr. Benito Schwartz PROF 14(COMP METB)on 022 Albumin [Mass/Vol] 2.9 g/dL Critically low 3.4-5.0 [facility] Comment on above: Performed By: #### F T4, PSASC #### [facility] [address] [place] [address] Dr. Benito Schwartz Albumin/Globulin [Mass ratio] 0.8 {ratio} Normal [facility] Comment on above: Performed By: #### F T4, PSASC #### [facility] [address] [place] [address] Dr. Benito Schwartz ALP [Catalytic activity/Vol] 107 U/L Normal 46-116 [facility] Comment on above: Performed By: #### F T4, PSASC #### [facility] [address] [place] [address] Dr. Benito Schwartz ALT [Catalytic activity/Vol] 25 U/L Normal 16-63 [facility] Comment on above: Performed By: #### F T4, PSASC #### [facility] [address] [address] [address] Benito Schwartz Anion gap [Moles/Vol] 14.2 mmol/L Normal Th [facility] Comment on above: Performed By: #### F T4, PSASC #### [facility] [address] [address] [address] Benito Schwartz AST [Catalytic activity/Vol] 17 U/L Normal 15-37 [facility] Comment on above: Performed By: #### F T4, PSASC #### [facility] [address] [address] [address] Benito Schwartz Bilirubin [Mass/Vol] 0.5 mg/dL Normal 0.2-1.0 [facility] Comment on above: Performed By: #### F T4, PSASC #### [facility] [address] [address] [address] Benito Schwartz Calcium [Mass/Vol] 9.1 mg/dL Normal 8.5-10.[address] [facility] Comment on above: Performed By: #### F T4, PSASC #### [facility] [address] [address] [address] Benito Schwartz Chloride [Moles/Vol] 104 mmol/L Normal 98-107 [facility] Comment on above: Performed By: #### F T4, PSASC #### [facility] [address] [address] [address] Benito Schwartz CO2 [Moles/Vol] 27.0 mmol/L Normal 21.0-32.0 [facility] Comment on above: Performed By: #### F T4, PSASC #### [facility] [address] [address] [address] Benito Schwartz Creatinine [Mass/Vol] 2.97 mg/dL Critically high 0.70-1.30 [facility] Comment on above: Performed By: #### F T4, PSASC #### [facility] [address] [address] [address] Benito Schwartz EGFR-AF INDONESIAN 25 mL/min/1.73m2 Critically low >=60 [facility] Comment on above: Performed By: #### F T4, PSASC #### [facility] [address] [address] [address] Benito Schwartz EGFR-NON AF INDONESIAN 21 mL/min/1.73m2 Critically low >=60 [facility] Comment on above: Performed By: #### F T4, PSASC #### [facility] [address] [address] [address] Benito Schwartz Globulin (S) [Mass/Vol] 3.6 g/dL Normal [facility] Comment on above: Performed By: #### F T4, PSASC #### [facility] [address] [address] [address] Benito Schwartz Glucose [Mass/Vol] 162 mg/dL Critically high 74-106 [facility] Comment on above: Performed By: #### F T4, PSASC #### [facility] [address] [address] [address] Benito Schwartz Potassium [Moles/Vol] 4.2 mmol/L Normal 3.5-5.1 [facility] Comment on above: Performed By: #### F T4, PSASC #### [facility] [address] [address] [address] Benito Schwartz Protein [Mass/Vol] 6.5 g/dL Normal 6.4-8.[address] [facility] Comment on above: Performed By: #### F T4, PSASC #### [facility] [address] [address] [address] Benito Schwartz Sodium [Moles/Vol] 141 mmol/L Normal 136-[address] [facility] Comment on above: Performed By: #### F T4, PSASC #### [facility] [address] [address] [address] Benito Schwartz Urea nitrogen [Mass/Vol] 74.0 mg/dL Critically high 7.0-18 .0 [facility] Comment on above: Performed By: #### F T4, PSASC #### [facility] [address] [address] [address] Benito Schwartz Urea nitrogen/Creatinine [Mass ratio] 24.9 mg/mg Normal [facility] Comment on above: Performed By: #### F T4, PSASC #### [facility] [address] [address] [address] Benito Schwartz TROPONIN, HIGH SENSITIVITYon 03-05-2022 HSTROP 39.6 pg/mL Normal 4.0-76.1 [facility] Comment on above: Result Comment: CUT- OFF POINTS HAVE BEEN ESTABLISHED BASED ON THE FOURTH UNIVERSAL DEFINITIONS OF MYOCARDIAL INFARCTION. THE UPPER REFERENCE LIMIT (URL) OF TROPONIN, DEFINED THE 99TH PERCENTILE OF cTnI DISTRIBUTION IN A REFERENCE POPULATION, HAS BEEN CONFIRMED THE DECISION THRESHOLD FOR MO DIAGNOSIS. Performed By: #### F T4, PSASC #### [facility] [address] [address] [address] Benito Schwartz TSHon 03-05-2022 TSH Qn m[IU]/L Critically low 0.358-3.740 [facility] Comment on above: Performed By: #### F T4 #### [facility] [address] [address] [address] Benito Schwartz TSH RANGE SEE BELOW Normal [facility] Comment on above: Result Comment: <0.3 4 UIU/ml HYPERTHYROID 0.34-5.60 UIU/ml EUTHYROID >5.60 UIU/ml HYPOTHYROID Performed By: #### F T4 #### [facility] [address] [address] [address] Benito Schwartz US THYROIDon 03-04-2022 US [...] MALENA RIOS Date: 2022-03-04 13:56 Normal [facility] - Chemistry and C hemistry - challengeOrdered By: Enrriquejay jay Mckeon on 02-22-2022 Natriuretic peptide B (Bld) [Mass/Vol] 251.0 pg/mL High 5-[address] [facility] TSH DL <= 0.005 mIU/L QnOrde red By: Enrrique Mckeon on 02-22-2022 TSH Qn m[IU]/L Low 0.45-5.[address] [facility] Coding Summaryon 07-08-2021 Coding Summary HTMLBase 64 IbeotrhwUJj7kNk+PGh lYWQ+GK0WJHNjE96qdS AztC8AE0sHDS3YDJMUM NHETH3BEC8rpMA9PCbl D3GrkuGq AgwsoGMsFR34GXt2FLJ 0aLgvZUhkwE2eeVIlS2 n3InKjPF12wZ30GNuoD XLmUwG1IfLmhejoxACg U5kyTkOdgDTcWyp+PHR hYmxlIHdpZHRoPScxMD RxSlBspJarFJ1cFn4iH GVyLWNvbGxhcHNlOiBj f4lbTYEjEUkgMU2vzEd iH9MbmLE3RHDsf3d9Em 48dHI+IXFuUKX4bBteI Jovb968QsViw9xmRBD7 gUYcPIesSWA9V66mz5G 2TKCyDRUlPQZ0pOT2aG 2kaKdcrdpcY2IweODfL xI1PTT8pKOwvL5wpKwa idmbcY8qZwm+E70UZQ9 QYPECCF9ZItg2P8DxEq wvdHI+VZ92AQEpRO08b XIxlSPft4polIu3InYz EQUwKOM3oWohGYxzz0M lFZCvP93jhZBrn9R8BF OpzBaheACfFqFavEE4w D5rMNjwynuoo1adbzpb Vhqbb4eirv47yB05B63 uPWtcHPQzIZU7ABHxOY EcbDsree2zjH1tYi0+I Unio7fmd0ywtIu0OmEp JMKpnmAegFeaDBG9d9D qSq23Q3AwpXprg9YbMg o5ya71wAFsi9G3zTT9S ZamTMNqcR7fAWgmKzK4 LXNjJvZvtN18tPRsIKm nOw5qfUniqNlwAA4vAN EslefhGYGhlX0bREKnz XZqyLewXD1ePGUwcjls l358PtNzILJ4HFMftQP jE8LixR0fCaWjPEMlTI VoE9KzqUJpTMuvF288X MdsAvB4AREaziSaW2Hd KNMwpBptXoM7c7Y2Mi2 Fr7JralqeMTN9TOlsLA U9HvJlDfNgRgG0A0ZxC ql0ZMInyOqdIH2vM0Uk KCXbpdhmvgskwJF4LCA pYXUioW84lHDqTJajOu 2zi9V4c478UESxUHRmn D56Py2dwBghMWMtkBEQ jR5ehdduz9tycutfKvI yMVOpFLs2HFd4FBOxmS ekSnZxGFF0WlZ7VSO7l EWnuE4wcXaqgnnfqA5e Oyc+L21eoP5tUAJ9OFQ 5qfmyPLYuxfVtJQ50XS 82D4HjSwrnjOQrhUF+P YTyxnNepIzaNT7rJdTd v8dva4BtCVraH5CjGUW uISnaBph4QDKdZWU8kA N2kF9jAEBsDEcfq9N9d VL2F8TzyuXwyx4ef7zt XKLqZNtkO05cpNMxl4Q 3SONimZL4AHOzbGzrDf MpzV23Ifv+PGNvbGdyb 1RmYxaxh4jbg0ariQm7 IjMwJSIgdmFsaWduPSJ 8p2LiIj33I27pULvkQB RoPSIxNSUiIHZhbGlnb d8yuY9wOg3+PGNvbCB3 tSZ9eD6bHLBuKlH6AIr uL585UnAznVBwVbzcb8 wti3zzcXs1NjEhEKYhp qLzuYckOKG2t4GiQp06 J62iVCtoANPfHXQkKLS cQRNewRvbvz6rmU9qAz 8+VF5ho6qhce91aU95f HI+KFWtIBB9rDnwXMih VZXdzT3jGFpkNzY8RLP gIlFphH63kRTpEMcsFg 3cpLcabBxyAC0fUXQcd gqhz442EzTgx3caJLIl xMZlSWutWUT5V71cq6V 7HZHnFFQkLJD9yVH5tA 1hbGlnbjogbGVmdDsgd cMhpIkcERntROwbO284 IHRvcDsnPlBhdGllbnQ uOcTyUSr0P6MkXfu3HQ KncLluAL4hkSXoYWwjQ p9sfGrlmAkiFU8nCFJu ozqnf124BtSgz7crGXT omTVcCKmcIZK8W47pt0 Z4KUNpNQCxSLF1lKE6i U0ffMcghprtyLFxzYni oxWzuHjmIWdaYBirL89 6IHRvcDsnPkJpcnRoIE FdaZY8ZT84FJ75tPQjd 3A6zAV5S9IhCHFnubhd cygzuHP0TMDzDKYtrY0 4Gd3kxYzfBd8hNKNgXU I5HQCvaGCwA3EmfN0fI xMbUJBqBXIiQ6TxsIRy PWyvW326OZreChA4ONZ dznKbT8XzKMBifEhvQn L8n7O1Yr5FH7S6HB10O H08rEWqo8X8dGI1J0Sa TZYxemmixhgklTB1DNQ mDXUuwU20Lw2rzWbyUb 7mHUHtNZL4CBYqsWEsX 4LtqI1oDtEdHYZzPWCl D5AexBYkNIvrJ906VXb kZwY2REHzhzPwD8FtZB UpdAszZmV9w2M2Cj1SD Le8RE86NV61yJQko5B4 bXT5Y2NnZWGzoreiqpr lbQI6JNAwZNLnrQ07Ee 1xqRnlBl7sVHBhUCT5M BUasHJcO6BkcG8jQrZv PJAcIOYlZ6DffMTlFCa aY076DOnrLxS1YIGyqh YlF1OnGNPnjXnxLoU1s 4M3Em4MDWWbZE31JVD7 rPV1VU31VX22C4TsIst vdGFibGU+PHRhYmxlIH dpZHRoPScxMDAlJyBzd MlmCL9cDa9sFHHmDMPw iZvqlFMnRcQgr1idRPT mIUcdJB2jsQdtZ2DjcD V4WYKkh8b5Ed14J96kL 3JvdXA+YOTrbBK2iHZ1 nJ8yFcFcYqB9CSylU28 5TgQnvPOjRifsg4ytq6 pocOi1XtI2KVZnftKfs TkoNAM2d5ZvZs94Q11g IHdpZHRoPSIxNSUiIHZ frQjvse1dgP3pSz0+PG YeyXG0eNI4fN9pCkApQ iM1MErqS483FpErpTQh Gdvcp4azl7enbGu4OwX rEOIswqJbmAfsZXU1g5 SjOz00E8EtoJqrt3ZwH xf8sl67wZVos5Z8aHP3 P6BjJRWhauhumDSuvEj oNW8cHTWxhlwwRSMxcE 3dEFMeH8b4WuOiHiZ1O MilQ1ExloG1DYVhqJAc JHtcQLR7S42hl4O3PXN eLMJbEOA7oFF4hS5bcN lnbjogbGVmdDsgdmVyd YerPJytDHvfQ910EGWf xWyxKTTnfL4xAINmyVP ikGkeII6sQVSxcorkMu UNNKVLXacqIxBPWsw0Z 2QxVpk6VOSzaFxbRO8o mMYmZYtzVo1vnRwviNk nUF1wPKJniqbwMMRffN 4xRJHltCViyCewLV5mS RAkcecfn670YuCeRFA9 BDBfuEYgY5WvjI6oGlN dOHDbJCXhK1WfqGXaCE xqG303KCwqXiW2RLTzw mNfS5AhADSjrAxfXnJ1 p6O7Jb3qJm7iLA2rSAW mIF64QU88hLWtw4F0nO X5Z5NpRATnmlepyhfrp DM1RUWtMOSgiN35pFXf YBgjTm6ot2G8x431HEY wDGYhfS19Em2lsLhwDI GybXDDcZ9binhai7ghi tgdZxGsMLRfHSc9GLi0 PAAuyAowJuIuTGB8IiS 2DTH1iXIpjB1moXjgfk ysmT4gOph+NzkgWWVhc yY0J1BwOkb6RSDmlVsl HE0cfUJmMUkfBv6pvDv ibRslUE2tUZVwippuOE UknC3fPDYpkXSgyOxfQ U0jXBVorwdpy952YbNp ASY0GECxzKZgE8JjvN0 eOyJxGFPjPUObP4EukY NjUXjjA188QOyqWgP8K LXagnVkK0HvEWWmnVxd EuY9n8U3Ay5BUMkZVG9 1LY64uIJwd3S0yNZ1Z6 OsUABhpbvrccwngJL5W XGgRZSqrR77oXLlLHoi Rv9qw4Z8i446JRStNYO zhJ72Zh4kyBkgSQXeyS HVaJ5iywkhr0lzdfbvE vQsWSYcUYr6XAu7KGUs yMgiTeSvPSA0UbG9RMI 5pIQnaA8fiBofquwmvW 9wOyc+L4M3Y3FfHjcvc HI+YH14DUJzPH51eKLz cRQct5rllGz4QuOoRPK hLAP6dDcfSDgkk9DzRA LcC37aqOGzd9Y5FSKah IbbuFWdHrDjhAC6yR3y DVisjljov9qssonsMhz tf3zcqi59hF56N90jXR dpZHRoPSIzMCUiIHZhb Rarel8goU8qSv8+PGNv zCT4cBD6pB5nHuEsUqG 4DWreG212IyGgxHYlZo tvg2uzc9msjVv5WoCmU TNztyXjeSkcFEP7s2Rl Iz35P31tSGjfGIZbGUB rMDIvVLChyRojtd5hvY 9wIi8+DM0pi7nzqd68p D48dHI+URXjGPK3lObw YOxxSMQdgP6iOEmlHdM 0GTDqOeKmiG66bPUmSL rwRd0ojYjtyQofGW5yZ AWfldari887DkCml8js RGNnkNKuEKbhRXB0C71 ny1F7XIDmDISrNNJ2kO M6hW0dsNkcghsurOVxo DsgdmVydGljYWwtYWxp W058FBEkvXvlEtPvqHE aT4ylodWFBK1jKwrkjC Q+PQLdMTL6qKuiWAcwT YGzuJ5mXCRsP0s6OfKj PzI3PEeoO1UbknS6TUN uuKKeKMBxhHEJtP8kvc evk8yflmxhOsBrOAJeX Hz9UQb5BXSbuGjxLnDe HJZ8LlY3EIU8qULioA7 zpZddzqbjnA9pAmo+Rk lOOjwvdGQ+LIEbRTE7u HomUVlaXBOdpR9hXGOu M2c4OaAuBhZ6UDxsL2F ztcF6XCJgiSVbQNLfeI AKqJ7idqpmb5sobrayY nZuEJYhDDz7SCf3TSMq eXewWtStYUD1IdM0YLZ 8cHPodX3ohHgddxbpvU 9wOyc+TVJOOjwvdGQ+P IItGNP2eJgcWAabWBLo kY0sCLOeZ6l0QcYuJvE 7KLonO9XxmnC6ZQRmcP QdWWHxsOONgM0sqcjag 5qqpzsqLsEiGZOeTKe7 UYc3VGSwcEdtSbMvPCY 4MnG8CIS9sXYvhM2gkE pyqabwfX7uImu+UGF5Z ZR0EA38JM60O7QeUqga dGFibGU+PHRhYmxlIHd pZHRoPScxMDAlJyBzdH icFA4rJb9cYGWwAHHek GqzcDAoBhFad2kwTOWh ZTs (more content not included)... 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 Kidney Failure is indicated at less than 15 ml/min/1.73m2 Performed By: #### [id number] #### [facility] (DEFAULT) [address] [place] [id number] Creatinine [Mass/Vol] 2.19 mg/dL High 0.90-1.30 [facility] [place] Comment on above: Performed By: #### [id number] #### [facility] (DEFAULT) [address] [place] [address]33 Vital Signs Date Time Vital Sign Value Performing Clinician Facility 04-22-2024 10:44-0400 Body height 180.34 cm DO Arine Ball Work Phone: [facility] 04-22-2024 10:44-0400 Body mass index (BMI) [Ratio] 30.2 kg/m2 DO Arnie Ball Work Phone: [facility] 04-22-2024 10:44-0400 Body weight 98.14 kg DO Arnie Ball Work Phone: [facility] 04-22-2024 10:44-0400 Diastolic blood pressure 69 mm[Hg] DO Arnie Ball Work Phone: [facility] 04-22-2024 10:44-0400 Heart rate 73 /min DO Arnie Ball Work Phone: [facility] 04-22-2024 10:44-0400 Respiratory rate 12 /min DO Arnie Ball Work Phone: [facility] 04-22-2024 10:44-0400 Systolic blood pressure 135 mm[Hg] DO Arnie Ball Work Phone: [facility] 03-01-2024 11:11-0400 Body height 180.34 cm DO Arnie Ball Work Phone: [facility] 03-01-2024 11:11-0400 Body mass index (BMI) [Ratio] 30.1 kg/m2 DO Arnie Ball Work Phone: [facility] 03-01-2024 11:11-0400 Body temperature 98 [degF] DO Arnie Ball Work Phone: [facility] 03-01-2024 11:11-0400 Body weight 97.97 kg DO Arnie Ball Work Phone: [facility] 03-01-2024 11:11-0400 Diastolic blood pressure 75 mm[Hg] DO Arnie Ball Work Phone: [facility] 03-01-2024 11:11-0400 Heart rate 67 /min DO Arnie Ball Work Phone: [facility] 03-01-2024 11:11-0400 Respiratory rate 18 /min DO Arnie Ball Work Phone: [facility] 03-01-2024 11:[id number] SaO2% (BldA) [Mass fraction] 95 % DO Arnie Ball Work Phone: [facility] 03-01-2024 11:[id number] Systolic blood pressure 158 mm[Hg] DO Arnie Ball Work Phone: [facility] 12-18-2023 10:07-0500 Body height 180.34 cm DO Arnie Ball Work Phone: [facility] 12-18-2023 10:07-0500 Body mass index (BMI) [Ratio] 30.2 kg/m2 DO Arnie Ball Work Phone: [facility] 12-18-2023 10:07-0500 Body weight 98.2 kg DO Arnie Ball Work Phone: [facility] 12-18-2023 10:07-0500 Diastolic blood pressure 76 mm[Hg] DO Arnie Ball Work Phone: [facility] 12-18-2023 10:07-0500 Heart rate 72 /min DO Arnie Ball Work Phone: [facility] 12-18-2023 10:07-0500 Respiratory rate 12 /min DO Arnie Ball Work Phone: [facility] 12-18-2023 10:07-0500 Systolic blood pressure 131 mm[Hg] DO Arnie Ball Work Phone: [facility] 09-01-2023 13:51-0500 Body height 180.34 cm DO Arnie Ball Work Phone: [facility] 09-01-2023 13:51-0500 Body temperature 97.7 [degF] DO Arnie Ball Work Phone: [facility] 09-01-2023 13:51-0500 Body weight 98.02 kg DO Arnie Ball Work Phone: [facility] 09-01-2023 13:51-0500 Diastolic blood pressure 79 mm[Hg] DO Arnie Ball Work Phone: [facility] 09-01-2023 13:51-0500 Heart rate 70 /min DO Arnie Ball Work Phone: [facility] 09-01-2023 13:51-0500 Respiratory rate 20 /min DO Arnie Ball Work Phone: [facility] 09-01-2023 13:51-0500 SaO2% (BldA) [Mass fraction] 96 % DO Arnie Ball Work Phone: [facility] 09-01-2023 13:51-0500 Systolic blood pressure 147 mm[Hg] DO Arnie Ball Work Phone: [facility] 08-22-2023 10:00-0500 Body height Arnie Ball Other [facility] [employer] Other 08-22-2023 10:00-0500 Body mass index (BMI) [Ratio] 29.35 kg/m2 Arnie Ball Other [email or web address] [facility] [employer] Other 08-22-2023 10:00-0500 Body weight 98.16 kg Arnie Ball Other [employer] Other 08-22-2023 10:00-0500 Diastolic blood pressure 74 mm[Hg] Arnie Ball Other [employer] Other 08-22-2023 10:00-0500 Respiratory rate 12 /min Arnie Ball Other [employer] Other 08-22-2023 10:00-0500 Systolic blood pressure 135 mm[Hg] Arnie Ball Other [employer] Other 04-20-2023 09:30-0400 Body height Arnie Ball Other [employer] Other 04-20-2023 09:30-0400 Body mass index (BMI) [Ratio] 29.62 kg/m2 Arnie Ball Other [employer] Other 04-20-2023 09:30-0400 Body weight 99.07 kg Arnie Ball Other [employer] Other 04-20-2023 09:30-0400 Diastolic blood pressure 64 mm[Hg] Arnie Ball Other [employer] Other 04-20-2023 09:30-0400 Respiratory rate 12 /min Arnie Ball Other [employer] Other 04-20-2023 09:30-0400 Systolic blood pressure 113 mm[Hg] Arnie Ball Other [employer] Other 12-15-2022 10:00-0500 Body height Arnie Ball Other [employer] Other 12-15-2022 10:00-0500 Body mass index (BMI) [Ratio] 29.81 kg/m2 Arnie Ball Other [employer] Other 12-15-2022 10:00-0500 Body weight 99.7 kg Arnie Ball Other [employer] Other 12-15-2022 10:00-0500 Diastolic blood pressure 70 mm[Hg] Arnie Ball Other [employer] Other 12-15-2022 10:00-0500 Respiratory rate 12 /min Arnie Ball Other [employer] Other 12-15-2022 10:00-0500 Systolic blood pressure 122 mm[Hg] Arnie Ball Other [employer] Other 09-02-2022 [id number] Body weight 98.9 kg DO Arnie Ball Work Phone: [facility] 09-02-2022 14:11-0500 Diastolic blood pressure 72 mm[Hg] DO Arnie Ball Work Phone: [facility] 09-02-2022 14:11-0500 Heart rate 60 /min DO Arnie Ball Work Phone: [facility] 09-02-2022 14:11-0500 Respiratory rate 20 /min DO Arnie Ball Work Phone: [facility] 09-02-2022 14:11-0500 SaO2% (BldA) [Mass fraction] 96 % DO Arnie Ball Work Phone: [facility] 09-02-2022 14:11-0500 Systolic blood pressure 153 mm[Hg] DO Arnie Ball Work Phone: [facility] 07-21-2022 10:13-0400 Diastolic blood pressure 64 mm[Hg] DO Arnie Ball Work Phone: [facility] 07-21-2022 10:13-0400 Heart rate 60 /min DO Arnie Ball Work Phone: [facility] 07-21-2022 10:13-0400 Respiratory rate 16 /min DO Arnie Ball Work Phone: [facility] 07-21-2022 10:13-0400 SaO2% (BldA) [Mass fraction] 95 % DO Arnie Ball Work Phone: [facility] 07-21-2022 10:13-0400 Systolic blood pressure 135 mm[Hg] DO Arnie Ball Work Phone: [facility] 07-21-2022 08:10-0400 Body height 180.34 cm DO Anrie Ball Work Phone: [facility] 07-21-2022 08:10-0400 Body temperature 98.2 [degF] DO Arnie Ball Work Phone: [facility] 07-21-2022 08:10-0400 Body weight 90.71 kg DO Arnie Ball Work Phone: [facility] 06-17-2022 10:25-0400 Body temperature 98.2 [degF] DO Arnie Ball Work Phone: [facility] 06-17-2022 10:25-0400 Diastolic blood pressure 58 mm[Hg] DO Arnie Ball Work Phone: [facility] 06-17-2022 10:25-0400 Heart rate 62 /min DO Arnie Ball Work Phone: [facility] 06-17-2022 10:25-0400 Respiratory rate 18 /min DO Arnie Ball Work Phone: [facility] 06-17-2022 10:25-0400 SaO2% (BldA) [Mass fraction] 98 % DO Arnie Ball Work Phone: [facility] 06-17-2022 10:25-0400 Systolic blood pressure 124 mm[Hg] DO Arnie Ball Work Phone: [facility] 06-03-2022 09:55-0400 Body height 180.34 cm DO Arnie Ball Work Phone: [facility] 06-03-2022 09:55-0400 Body weight 92.85 kg DO Arnie Ball Work Phone: [facility] Encounters Encounter Date Encounter Type Care Provider Facility Start: 07-09-2024 End: 07-09-2024 ambulatory RANDALL TELLO Not Available Start: 06-26-2024 ambulatory TRANG DEGROOT [facility] Start: 2024 ambulatory GREG ALEJANDRE [facility] Start: 04-22-2024 End: 04-22-2024 ambulatory DO Arnie Ball Work Phone: [facility] Work Phone: Start: 04-22-2024 End: 04-22-2024 Patient encounter procedure DO Arnie Ball Work Phone: [facility] Work Phone: Start: 04-11-2024 ambulatory [facility] Start: 04-09-2024 ambulatory [facility] Start: 04-02-2024 ambulatory [facility] Start: 04-02-2024 Encounter for preprocedural cardiovascular examination [facility] Start: 03-29-2024 End: 03-29-2024 [facility] Start: 03-05-2024 End: 03-05-2024 ambulatory [facility] Start: 03-01-2024 End: 03-01-2024 ambulatory DO Arnie Maddi Work Phone: [facility] Work Phone: Start: 03-01-2024 End: 03-01-2024 Patient encounter procedure DO Arnie Maddi Work Phone: [facility] Work Phone: Start: 03-01-2024 Registered Recurring DO Jeremi in Ball Work Phone: [facility] Work Phone: Start: 02-21-2024 End: 02-21-2024 ambulatory RANDALL TELLO Not Available Start: 02-01-2024 Non-patient / Non-visit DO Aguilar Linda Work Phone: [facility] Work Phone: Start: 12-19-2023 Non-patient / Non-visit DO Aguilar Linda Work Phone: [facility] Work Phone: Start: 12-18-2023 End: 12-18-2023 ambulatory Arnie Linda Other [facility] Other Start: 12-18-2023 Telephone encounter Arnie Ball [facility] Start: 12-18-2023 End: 12-18-2023 Patient encounter procedure DO Arnie Ball Work Phone: [facility] Work Phone: Start: 09-29-2023 End: 09-29-2023 ambulatory Arnie Linda Other [employer] Other Start: 09-29-2023 Telephone encounter Arnie Linda [facility] Start: 09-22-2023 End: 09-22-2023 [facility] Start: 09-04-2023 End: 09-04-2023 ambulatory TRANG DEGROOT [facility] Start: 09-01-2023 ambulatory Kalia Sánchez Facility: [facility] Start: 09-01-2023 End: 09-01-2023 ambulatory DO Arnie Linda Work Phone: [facility] Work Phone: Start: 09-01-2023 End: 09-01-2023 Registered Recurring DO Arnie Linda Work Phone: [facility] Work Phone: Start: 08-27-2023 End: 08-27-2023 ambulatory Arnie Linda Other [employer] Other Start: 08-27-2023 Telephone encounter Arnie Linda [facility] Start: 08-22-2023 End: 08-22-2023 ambulatory Arnie Linda Other [employer] Other Start: 08-22-2023 Office outpatient vi sit 25 minutes Arnie Linda [facility] Start: 07-03-2023 End: 07-03-2023 ambulatory Arnie Ball Other [employer] Other Start: 07-03-2023 Telephone encounter Arnie Linda [facility] Start: 07-01-2023 End: 07-01-2023 ambulatory Arnie Ball Other [employer] Other Start: 07-01-2023 Telephone encounter Arnie Linda [facility] Start: 06-30-2023 End: 06-30-2023 [facility] Start: 06-22-2023 End: 06-22-2023 ambulatory Arnie Linda Other [employer] Other Start: 06-22-2023 Telephone encounter Arnie Linda [facility] Start: 06-12-2023 End: 06-12-2023 ambulatory Arnie Linda Other [employer] Other Start: 06-12-2023 Telephone encounter Arnie Linda [facility] Start: 04-26-2023 End: 04-26-2023 ambulatory Arnie Linda Other [employer] Other Start: 04-26-2023 Telephone encounter Arnie Linda [facility] Start: 04-20-2023 End: 04-20-2023 ambulatory Arnie Linda Other [employer] Other Start: 04-20-2023 Office outpatient vi sit 25 minutes Arnie Linda [facility] Start: 03-14-2023 End: 03-14-2023 ambulatory Arnie Linda Other [employer] Other Start: 03-14-2023 Telephone encounter Arnie Linda [facility] Start: 02-28-2023 End: 03-01-[address] DOCTOR EDWARDS Facility:[facility] Start: 02-15-2023 Telephone encounter Arnie Maddi [facility] Start: 02-15-2023 End: 02-16-[address] DOCTOR EDWARDS [employer] Other Start: 02-14-2023 End: 02-14-2023 ambulatory Arnie Linda Other [employer] Other Start: 02-14-2023 Telephone encounter Arnie Linda FP [facility] Start: 01-11-2023 End: 01-11-2023 ambulatory Arnie Linda Other [employer] Other Start: 01-11-2023 Office outpatient vi sit 15 minutes Arnie Linda [facility] Start: 01-02-2023 End: 01-03-2023 ambulatory AVERY SYED MD Facility:[facility] Start: 12-15-2022 End: 12-15-2022 ambulatory Arnie Linda Other [employer] Other Start: 12-15-2022 Patient encounter procedure Arnie Linda [facility] Start: 11-16-2022 End: 11-17-[address] ARNIE LINDA Facility:[facility] Start: 11-14-2022 End: 11-14-2022 ambulatory Arnie Linda Other [employer] Other Start: 11-14-2022 Telephone encounter Arnie CARRASCO [facility] Start: 10-03-2022 End: 10-04-[address] ARNIE LINDA Facility:[facility] Start: 09-22-2022 End: 09-23-[address] DOCTOR EDWARDS Facility:[facility] Start: 09-09-2022 End: 09-10-[address] DOCTOR EDWARDS Facility:[facility] Start: 09-02-2022 End: 09-02-2022 ambulatory DO Arnie Linda Work Phone: [facility] Work Phone: Start: 09-02-2022 End: 09-02-2022 Registered Recurring DO Arnie Linda Work Phone: [facility] Start: 08-30-2022 End: 08-31-[address] ARNIE LINDA Facility:[facility] Start: 07-21-2022 End: 07-21-2022 Admission to same day surgery center DO Arnie Linda Work Phone: [facility] Start: 07-21-2022 End: 07-21-2022 ambulatory DO Arnie Linda Work Phone: [facility] Work Phone: Start: 07-20-2022 End: 07-21-[address] ARNIE LINDA Facility:[facility] Start: 07-19-2022 End: 07-19-2022 ambulatory DO Arnie Linda Work Phone: [facility] Work Phone: Start: 07-19-2022 End: 07-19-2022 Patient encounter procedure DO Arnie Linda Work Phone: [facility] Start: 07-07-[address] DAWN ORTIZ Fac ility:[facility] Start: 06-21-2022 Adult health examination Gume Linda Other [employer] Other Start: 06-17-2022 Registered Recurring DO Jeremi in Maddi Work Phone: [facility] Start: 06-03-2022 End: 06-03-2022 Registered Recurring DO Arnie Maddi Work Phone: [facility] Start: 05-31-2022 End: 05-31-2022 Patient encounter procedure DO Arnie Maddi Work Phone: [facility] [place] Start: 05-12-2022 End: 05-13-2022 ambulatory AVERY SYED MD Facility:[facility] Start: 05-10-2022 End: 05-11-2022 ambulatory FERMIN SANCHEZ Facility:[facility] Start: 04-26-2022 End: 04-27-[address] DOCTOR EDWARDS Facility:[facility] Start: 04-11-2022 End: 07-07-[address] ARNIE LINDA Facility:[facility] Start: 04-08-2022 End: 04-09-[address] ARNIE LINDA Facility:[facility] Start: 03-30-2022 End: 04-02-2022 Evaluation and management of inpatient GILMER SALAZAR Facility:[facility] Start: 03-25-2022 End: 03-26-2022 ambulatory ENRRIQUE MCKEON Facility:[facility] Start: 03-11-2022 ambulatory ENRRIQUE MCKEON Facility :[facility] Start: 03-06-2022 End: 03-07-2022 Evaluation and management of inpatient DR RUPINDER GRIGSBY . Facility:[facility] Start: 03-04-2022 End: 03-05-[address] ARNIE LINDA Facility:[facility] Start: 08-17-2021 End: 08-17-2021 Pre-procedure evaluation check Arnie Linda Other [employer] Other Start: 08-15-2021 Bradycardia DO Arnie Quezada ll Work Phone: [facility] Procedures Date Procedure Procedure Detail Performing Clinician Start: 02-22-2024 CT of abdomen and pe lvis without contrast DO Arnie Linda Work Phone: Start: 02-22-2024 CT of chest without contrast DO Arnie Linda Work Phone: Start: 08-30-2023 Carcinoembryonic antigen cea Kalia Sánchez Comment on above: Result Comment: PERF ORMED BY: [place] [address] PATHOLOGIST [employer]LE[employer]ER TRU UMANZOR M.D. Performed By: #### F ER, CEA, CBC, FE and TIBC, CMP #### [facility] [address] Start: 08-30-2023 CT of abdomen and pe lvis without contrast DO Arnie Linda Work Phone: Start: 08-30-2023 CT of chest without contrast DO Arnie Linda Work Phone: Start: 02-28-2023 Carcinoembryonic antigen cea Kalia Sánchez Comment on above: Result Comment: PERF ORMED BY: [facility] [address] [place] [address] PATHOLOGIST [employer] TRU UMANZOR M.D. Performed By: #### C MP, FE and TIBC, CBC, CEA, TONY ####[facility] [id number] Start: 02-28-2023 CT of abdomen and pe lvis without contrast DO Arnie Linda Work Phone: Start: 02-28-2023 CT of chest without contrast DO Arnie Ball Work Phone: Start: 01-02-2023 PSA screening FERMIN JADE Comment on above: Performed By: #### F T4, PSASC #### [facility] [address] [address] [address] Benito Schwartz Start: 08-31-2022 CT of [...] 05-19-2018 Laboratory test resu lt abnormal Arnie [employer] Other Start: 04-25-2017 Screening for malign ant neoplasm of colon Arnie [employer] Other Start: 08-24-2016 Pre-surgery evaluation Arnie [employer] Other Start: 08-24-2016 Preoperative cardiov ascular examination Arnie [employer] Other Start: 01-01-2015 Screening for malign ant neoplasm of prostate Arnie [employer] Other Depression screening Benjami n Ball Other SARS Antigen (LFIA) DO Gume min Ball Work Phone: Screening for malign ant neoplasm of prostate Arnie [employer] Other Plan of Treatment Date Care Activity Detail Author Start: 07-21-[address] [facility] Start: 06-17-2022 Registered Recurring Colon cancer [facility] Start: 06-17-[address] [facility] Start: 06-10-[address] [facility] Start: 02-22-2022 CT abdomen pelvis w con CT abdomen pelvis w con [facility] Start: 02-22-2022 CT chest w con CT chest w con [facility] Carcinoembryonic Ag [Mass/volume] in Serum or Plasma [facility] Work Phone: Carcinoembryonic Ag [Mass/volume] in Serum or Plasma [facility] Carcinoembryonic Ag [Mass/volume] in Serum or Plasma [facility] Comprehensive metabo lic 1999 panel - Serum or Plasma [facility] Work Phone: Comprehensive metabo lic 1999 panel - Serum or Plasma [facility] Comprehensive metabo lic 1999 panel - Serum or Plasma [facility] Comprehensive metabo lic 1999 panel - Serum or Plasma [facility] Comprehensive metabo lic 1999 panel - Serum or Plasma [facility] Comprehensive metabo lic 1999 panel - Serum or Plasma [facility] CT Abdomen and Pelvi s W contrast IV [facility] Work Phone: CT Abdomen and Pelvi s W contrast IV [facility] CT Abdomen and Pelvi s W contrast IV [facility] CT Abdomen and Pelvi s W contrast IV [facility] CT Abdomen and Pelvi s WO contrast [facility] Work Phone: CT Abdomen and Pelvi s WO contrast [facility] CT Abdomen and Pelvi s WO contrast [facility] CT Chest W contrast IV [facility] Work Phone: CT Chest W contrast IV [facility] CT Chest W contrast IV [facility] CT Chest W contrast IV [facility] CT Chest WO contrast [facility] Work Phone: CT Chest WO contrast [facility] CT Chest WO contrast [facility] Erythropoietin (EPO) [Units/volume] in Serum or Plasma [facility] Ferritin [Mass/volum e] in Serum or Plasma [facility] Patient Education Hemorrhoids Co arelis Polyps [facility] Work Phone: [facility] Immunizations Immunization Date Immunization Notes Care Provider Fa johnnie 07-10-2022 COVID-19 Pfizer (bivalent) Arnie Linda Other [facility] 07-10-2022 COVID-19 Pfizer (Pediatric) Arnie Linda Other [facility] 07-04-2022 influenza virus vaccine, split virus (incl. purified surface antigen) Arnie Maddi Other [employer] Other 07-04-2022 influenza virus vaccine, unspecified formulation DO Arnie Linda Work Phone: [facility] 07-04-2022 influenza, high dose seasonal, preservative-free Arnie Linda Other [employer] Other 02-07-2022 COVID-19 Pfizer Arnie Cason kasia Other [facility] 02-07-2022 COVID-19 Vaccine Pfi zer - Documentation Purposes Only Arnie Linda Other [facility] 07-28-2021 influenza virus vaccine, split virus (incl. purified surface antigen) Arnie Linda Other [employer] Other 07-28-2021 influenza virus vaccine, unspecified formulation DO Arnie Linda Work Phone: [facility] 07-15-2021 COVID-19 mRNA, Comirnaty (Pfizer) DO Arnie Linda Work Phone: [facility] 12-03-2020 COVID-19 mRNA, Comirnaty (Pfizer) DO Arnie Linda Work Phone: [facility] 11-12-2020 COVID-19 mRNA, Comirnaty (Pfizer) DO Arnie Linda Work Phone: [facility] 06-30-2020 influenza virus vaccine, split virus (incl. purified surface antigen) Arnie Linda Other [facility] Other 06-30-2020 influenza virus vaccine, unspecified formulation DO Arnie Linda Work Phone: [facility] 07-19-2019 influenza virus vaccine, split virus (incl. purified surface antigen) Arnie Linda Other [facility] Other 07-19-2019 influenza virus vaccine, unspecified formulation DO Arnie Linda Work Phone: [facility] 07-17-2018 influenza virus vaccine, split virus (incl. purified surface antigen) Arnie iLnda Other [facility] Other 07-17-2018 influenza virus vaccine, unspecified formulation DO Arnie Linda Work Phone: [facility] 12-25-2017 diphtheria, tetanus toxoids and acellular pertussis vaccine, unspecified formulation Arnie Linda Other [facility] 07-24-2017 influenza virus vaccine, split virus (incl. purified surface antigen) Arnie Linda Other [facility] Other 07-24-2017 influenza virus vaccine, unspecified formulation DO Arnie Linda Work Phone: [facility] 07-12-2016 influenza virus vaccine, split virus (incl. purified surface antigen) Arnie Linda Other [facility] Other 07-12-2016 influenza virus vaccine, unspecified formulation DO Arnie Linda Work Phone: [facility] 05-26-2016 pneumococcal Conjuga te, unspecified formulation; Translations: [Need for prophylactic vaccination against Streptococcus pneumoniae (pneumococcus)] Arnie Linda Other [facility] Other 05-26-2016 pneumococcal conjuga te vaccine, 13 valent Arnie Linda Other [facility] 07-08-2015 influenza virus vaccine, split virus (incl. purified surface antigen) Arnie Linda Other [facility] Other 07-08-2015 influenza virus vaccine, unspecified formulation DO Arnie Linda Work Phone: [facility] 08-02-2013 tetanus and diphther ia toxoids, adsorbed, preservative free, for adult use (5 Lf of tetanus toxoid and 2 Lf of diphtheria toxoid) Arnie Linda Other [facility] 08-02-2013 pneumococcal polysaccharide vaccine, 23 valent Arnie Linda Other [facility] 06-27-2012 tetanus and diphther ia toxoids, adsorbed, preservative free, for adult use (5 Lf of tetanus toxoid and 2 Lf of diphtheria toxoid) Arnie Linda Other [facility] Payers Date Payer Category Payer Medicare [id number] 1959 Self-pay [id number] 1959 Unknown [id number] 1942 Unknown [id number] 2.16.8 [id number] 1942 Unknown [id number] 2.16.84 0.1.520645.3.579.2.593 1942 Unknown [id number] 2.16.84 0.1.246829.3.579.2.593 1942 Unknown [id number] 2.16.84 0.1.836959.3.579.2.593 1942 Unknown [id number] 2.16.84 0.1.128239.3.579.2.593 1942 Unknown [id number] 2.16.84 0.1.623594.3.579.2.593 1942 Unknown [id number] 2.16.84 0.1.334113.3.579.2.593 1942 Unknown [id number] 2.16.84 0.1.281384.3.579.2.593 1942 Unknown [id number] 2.16.84 0.1.353575.3.579.2.593 194 Unknown [id number] 2.16.84 0.1.913344.3.579.2.593 1942 Unknown [id number] 2.16.84 0.1.908795.3.579.2.593 1942 Unknown [id number] 2.16.84 0.1.565735.3.579.2.593 1942 Unknown [id number] 2.16.84 0.1.164203.3.579.2.593 1942 Unknown [id number] 2.16.84 0.1.500032.3.579.2.593 1942 Unknown [id number] 2.16.84 0.1.070636.3.579.2.593 1942 Unknown [id number] 2.16.84 0.1.286912.3.579.2.593 1942 Unknown [id number] 2.16.84 0.1.889725.3.579.2.593 1942 Unknown [id number] 2.16.84 0.1.201315.3.579.2.593 1942 Unknown [id number] 2.16.84 0.1.592517.3.579.2.593 1942 Unknown [id number] 2.16.84 0.1.085076.3.579.2.593 1942 Unknown [id number] 2.16.84 0.1.230493.3.579.2.593 1942 Unknown [id number] 2.16.84 0.1.852554.3.579.2.593 1942 Unknown [id number] 2.16.84 0.1.808422.3.579.2.1259 1942 Unknown [id number] 2.16.84 0.1.703362.3.579.2.1259 Unknown [id number] 2.16.84 0.1.278114.3.579.2.593 Unknown [id number] 2.16.8 40.1.945055.3.579.2.531 Social History Date Type Detail Facility Start: 06-03-2022 End: 04-22-2024 Tobacco smoking status ALIS Ex-smoker (finding) [facility] Start: 1940 Sex Assigned At Male F [facility] Start: [birth year]-16-1959 End: 10-16-1981 Sex Assigned At [facility] [employer] Other Medical Equipment Procedure Code Equipment Code Equipment Origin al Text Equipment Identifier Dates Blood Sugar Diagnostic (Contour Next Test Strips) strip Start: 12-15-2023 Blood Sugar Diagnostic (Contour Next Test Strips) strip Start: 12-15-2023 Goals Date Patient Goal Desired Activity /State Clinical Notes 08-31-2021 to 03-29-2024 Note Date & Type Note Facility 03-29-2024 Note [place] [facility] Subjective Nas Ren is a 83 y.o. year old male patient being seen for 6 mo follow up chronic systolic heart failure, persistent afib, CAD, hypertension, and dilated cardiomyopathy s/p ICD. His device was interrogated last month, and he had lipid profile in December 2023. His wound care specialist switched him from Bumex to Lasix due to insurance coverage. He feels good, as he denies chest pain, SOB, palpitations, lightheadedness/syncope, and bleeding on Eliquis. Patient Active Problem [...] intolerance Stage 4 chronic kidney disease (CMS/HCC) Chronic bronchitis, simple (CMS/HCC) Chronic venous insufficiency Constipation Hyperlipidemia type II Hypothyroidism due to medication Impaired mobility and activities of daily living Iron deficiency anemia Colon cancer (CMS/HCC) Mucopurulent chronic bronchitis (CMS/HCC) Obstructive sleep apnea Pacemaker A-fib (CMS/HCC) Psoas abscess, right (CMS/HCC) Pulmonary hypertension (CMS/HCC) Thyrotoxicosis Type 2 diabetes mellitus with hyperglycemia (CMS/HCC) Family History Problem Relation Name Age of Onset Diabetes Mother Heart disease Father Glaucoma Brother Diabetes Maternal Grandmother Clotting disorder Other Social History Tobacco Use Smoking status: Former Types: Cigarettes Quit date: 1981 Years since quittin.4 Smokeless tobacco: Never Substance Use Topics Alcohol [...] status post atrial flutter ablation by Dr. Greg Alejandre on 11/13/2019, and subsequently he was back into atrial fibrillation and flutter andcurrently is in longstanding persistent atrial fibrillation. He is maintained on anticoagulation therapy with Eliquis 2.5 mg twice daily adjusted to age and renal function. He is intolerant to statins and he is on ezetimibe therapy. Today he reports that he has been doing reasonably well. He has NYHA class I symptoms and mild occasional leg swelling. He has no angina. He has no dizziness and lightheadedness. His blood pressure and heart rate are well-controlled. Review of Systems Cardiovascular: Positive for leg swelling. Hematologic/Lymphatic: Bruises/bleeds easily. All other systems reviewed and are negative. Objective Visit Vitals BP 114/62 (BP Location: Left arm, Patient Position: Sitting) Pulse 70 Ht 1.803 m (5' 11 ) Wt 96.6 kg (213 lb) SpO2 96% BMI 29.71 kg/m??? Smoking Status Former BSA 2.2 m??? Physical Exam Constitutional: Appearance: He is [...] Judgment: Judgment normal. Allergies Allergies Allergen Reactions Nfnasgj-Oaq-Woe Reductase Inhibitors Tramadol Medications Current Outpatient Medicat (more content not included)... [facility] 12-18-2023 Evaluation note Encounter Date Diagnosis Assessment Notes Dec, Thyrotoxicosis (ICD-10 - E05.90) Dec, Hypothyroidism due to medication (ICD-10 - E03.2) [facility] Other 12-08-2023 NoteUT Cardiology - [facility] Subjective Nas Ren is a [...] Left ventricular systolic dysfunction Osteomyelitis of vertebra ([facility]/HCC) Paroxysmal atrial flutter ([facility]/HCC) Proteinuria Type 2 diabetes mellitus ([facility]/HCC) COPD (chronic obstructive pulmonary disease) ([facility]) Dilated cardiomyopathy ([facility]) Statin intolerance Stage 4 chronic kidney disease ([facility]) Family History Problem Relation Name Age of Onset Diabetes Mother Heart disease Father Glaucoma Brother Diabetes Maternal Grandmother Clotting disorder Other Social History Tobacco Use Smoking status: Former Types: Cigarettes Quit date: 1981 Years since quittin.9 Smokeless tobacco: Never Substance Use Topics Alcohol use: Yes Comment: OCCASIONAL Drug use: Never HPI Nas is seen in follow-up. He is [...] status post atrial flutter ablation by Dr. Greg Alejandre on 11/13/2019, and subsequently he was [...] Judgment: Judgment normal. Allergies Allergies Allergen Reactions Remhkxj-Qyx-Yqf Reductase Inhibitors Tramadol Medications Current Outpatient Medications: [...] in the morning., Di (more content not included)...[facility]11-12-2023 Evaluation note* Encounter Date Diagnosis Assessment Notes Treatment Notes Treatment Clinical Notes Aug, Hyperuricemia (ICD-1 0 - E79.0) [employer] Other 11-07-2023 Evaluation note* Encounter Date Diagnosis Assessment Notes [...] are maintaining regular scheduled appts with their director talent management. No bleeding complications Aug, Mucopurulent chronic bronchitis [...] use, the patient reduces the risk for MO, CVA, HTN, cardiac dysrhythmias and sudden cardiac [...] the risk for cerebrovascular and cardiovascular disease. [employer] Other 09-15-2023 NoteCardiology Clinic Note Subjective Nas [...] Left ventricular systolic dysfunction Osteomyelitis of vertebra ([facility]/HCC) Paroxysmal atrial flutter ([facility]/HCC) Proteinuria Type 2 diabetes mellitus ([facility]/HCC) COPD (chronic obstructive pulmonary disease) ([facility]/HCC) Dilated cardiomyopathy ([facility]/HCC) Statin intolerance Family History Problem Relation Name [...] level. He has recently been seeing a wound care specialist due to increased creatinine levels, he is a 2.7 per recent labs. Him and both state wound care specialist may refer him to a dialysis specialist. He continues to urinate on a regular basis and reviewing labs he is not holding onto electrolytes. He states he is repeating his labs this week per the wound care specialist. Update: 06/30/2023 Here for routine follow-up [...] No gross deficits Allergies Allergies Allergen Reactions Ipjamee-Vgp-Cbm Reductase Inhibitors Tramadol Medications Current Outpatient Medications: [...] 99, CO2 32.4, (more content not included)... [facility]09-15-2023 NotePatient here for 2 mo follow up CHF per VIGNESH Alvarado. Denies chest pain, SOB, LE edema, and bleeding on Eliquis. Review of Systems Cardiovascular: Negative for paroxysmal nocturnal dyspnea and syncope. All other systems reviewed and are negative.[facility] 06-22-2023 Evaluation note* Encounter Date Diagnosis Assessment Notes Treatment Notes Treatment Clinical Notes Jun, Hypothyroidism due t o medication (ICD-10 - E03.2) [employer] Other 07-06-2023 Evaluation note* Encounter Date Diagnosis Assessment Notes [...] use, the patient reduces the risk for MO, CVA, HTN, cardiac dysrhythmias and sudden cardiac [...] are maintaining regular scheduled appts with their director talent management. No bleeding compliations Initiated on [employer] Other 05-30-2023 Evaluation note* Encounter Date Diagnosis Assessment Notes Treatment Notes Treatment Clinical Notes February, Hypothyroidism due t o medication (ICD-10 - E03.2) [employer] Other 05-19-2023 Progress note Author Leigha Nelson [facility] March 03, 2023 2:31pm Note Date/Time March 03, 2023 2:21p m [facility] [place] [address] Hem/Onc Follow Up Note - OP Signed Patient: Nas Ren MR#: [id number] : 1940 Acct:[id number] Age/Sex: 82 / M Type: REG RCR Copies to: MD Arnie Lui DO Timothy J Adamowicz, II, DO~ Date of Service: 03/03/2023 Time of [...] for coordination of care (as documented) and fgpr-fw-ahlw counseling of patient and/or family. [facility] - Medical History Medical History: Medical History [...] Calcium 8.8, Iron 56, TIBC 281, Iron Fjjluzofqy63.9 L, Transferrin 201 L, Ferritin 236.7, Total [...] % (Auto) 68.3, Lymph % (Auto) 17.9, Dyer % (Auto) 9.6, Eos % (Auto) 3.6, Baso % (Auto) 0.6, Nucleat RBC Rel Count 0.3, Neut # (Auto) 6.6, Lymph # (Auto) 1.7, Dyer # (Auto) 0.9 H, Eos # (Auto) 0.3, Baso # (Auto) 0.1 - Home Medications and Allergies Allergies/Adverse Reactions: Allergies Nbmlrlz-NFP-UaZ Reductase Inhibitor [Rpuxbkj-Duu-Agi Reductase Inhibitor] Allergy (Verified 03/03/23 13:45) Muscle [...] <Electronically signed by EDWARD Nelson> 03/03/23 1431 [facility] Work Phone: 1(650) 846-158105-02-2023 Evaluation note* Encounter Date Diagnosis Assessment Notes Treatment Notes Treatment Clinical Notes February, Thyrotoxicosis (ICD-10 - E05.90) [employer] Other 03-29-2023 Evaluation note* Encounter Date Diagnosis Assessment [...] cardiomyopathy (ICD-10 - I42.0) Continue healthy diet. [employer] Other 03-02-2023 Evaluation note* Encounter Date Diagnosis Assessment Notes [...] use, the patient reduces the risk for MO, CVA, HTN, cardiac dysrhythmias and sudden cardiac [...] Z12.5) Dec, Cardiac pacemaker (ICD-10 - Z95.0) [employer] Other 01-30-2023 Evaluation note* Encounter Date Diagnosis Assessment Notes Treatment Notes Treatment Clinical Notes Oct, Other thyrotoxicosis without thyrotoxic crisis or storm (ICD-10 - E05.80) [employer] Other 11-18-2022 Progress note Author Chivo Keller [facility] September 02, 2022 2:38pm Note Date/Time September 02, 2022 2:33pm [facility] [place] [address] Hem/Onc Follow Up Note - OP Signed Patient: Nas Ren MR#: [id number] : 1940 Acct:[id number] Age/Sex: 82 / M Type: REG RCR [...] for coordination of care (as documented) and yctb-iu-ymom counseling of patient and/or family. [facility] - Medical History Medical History: Medical History [...] % (Auto) 68.3, Lymph % (Auto) 18.5, Dyer % (Auto) 8.4, Eos % (Auto) 4.3, Baso % (Auto) 0.5, Neut # (Auto) 4.6, Lymph # (Auto) 1.2, Dyer # (Auto) 0.6, Eos # (Auto) 0.3, Baso # (Auto) 0.0, Nucleated RBC % (auto) 0.1 - Home Medications and Allergies Allergies/Adverse Reactions: Allergies Hikugmc-KRF-RjW Reductase Inhibitor [Zbhixtr-Ngt-Ygy Reductase Inhibitor] Allergy (Verified 09/02/22 14:10) Muscle [...] 07/21/22 [History Confirmed 09/02/22] Dictated By: Chivo Kelelr II, DO DD/ 143 Signed By: <Electronically signed by Chivo Keller II, DO> 09/02/22 1438 [facility] Work Phone: 1(771) 456-776510-06-[address] Progress note Author Leigha Nelson [facility] June 03, 2022 10:35am Note Date/Time June 03, 2022 10 :10am [facility] [place] [address] Hem/Onc Follow Up Note - OP Signed Patient: Nas Ren MR#: [id number] : 1940 Acct:[id number] Age/Sex: 82 / M Type: REG RCR [...] for coordination of care (as documented) and amti-rd-maiu counseling of patient and/or family. [facility] - Medical History Medical History: Medical History [...] % (Auto) 69.9, Lymph % (Auto) 17.2, Dyer % (Auto) 8.0, Eos % (Auto) 4.1, Baso % (Auto) 0.8, Neut # (Auto) 6.2, Lymph # (Auto) 1.5, Dyer # (Auto) 0.7, Eos # (Auto) 0.4, Baso # (Auto) 0.1, Nucleated RBC % (auto) 0.0 - Home Medications and Allergies Allergies/Adverse Reactions: Allergies Dgbyycl-WIE-HlQ Reductase Inhibitor [Ejmphst-Eah-Ggi Reductase Inhibitor] Allergy (Verified 06/03/22 09:55) Muscle [...] <Electronically signed by EDWARD Nelson> 06/03/22 1035 [facility] Work Phone: 1([phone] 550-561206-18-2022 NoteMR#: [id number] [facility] Pt. Name: Nas Ren Admitted: 03/30/2022 Discharged: 04/02/2022 Date of : 1940 Physician: Gilmer Salazar MD DISCHARGE SUMMARY CONSULTING SERVICES: 1. Nephrology Service. 2. Endocrinology service. 3. Cardiology service. PRINCIPAL DIAGNOSES: 1. Gmbbb-kr-rvppfwh heart failure, reduced ejection fraction of 35%. 2. Acute kidney injury on chronic kidney disease, stage 4, resolved. 3. Dyspnea, on exertion. 4. Essential hypertension. 5. History of coronary artery disease. 6. Iodine-induced hyperthyroidism, uncontrolled. 7. Nkt-hwyqino-rtoyqkcix diabetes mellitus, diet controlled, A1c 6.4. 8. [...] is a 81-year-old male who presented to [facility] with chief complaint of dyspnea on exertion. [...] overload occurs, he is to call his director talent management and/or PCP. The patient also require repeat [...] Adler PA-C Date Trans: 04/02/2022 02:36 P/hans [id number] cc: Arnie Linda D.O. [address] [place] [id number] [facility] NotePROCEDURE: XR CHEST 1 V REASON [...] Electronically authenticated by: NICK OLMEDO Date: 2022-03-05 21:29[facility]05-15-2022 Progress note Author Chivo Keller [facility] February 27, 2022 12:52pm Note Date/Time February 25, 2022 12:11 pm [facility] [place] [address] Hem/Onc Follow Up Note - OP Signed Patient: Nas Ren MR#: [id number] : 1940 Acct:[id number] Age/Sex: 81 / M Type: REG RCR Copies to: MD Arnie Lui,DOEmiliano Date of Service: 02/25/2022 Time of Service: [...] for coordination of care (as documented) and clgt-sh-mixe counseling of patient and/or family. [facility] - Medical History Medical History: Medical History [...] % (Auto) 65.1, Lymph % (Auto) 19.2, Dyer % (Auto) 13.3, Eos % (Auto) 1.8, Baso % (Auto) 0.6, Neut # (Auto) 4.2, Lymph # (Auto) 1.2, Dyer # (Auto) 0.9H, Eos # (Auto) 0.1, [...] Home Medications and Allergies Allergies/Adverse Reactions: Allergies Wpnpaxt-ARP-YjK Reductase Inhibitor [Vruxsog-Uaz-Viu Reductase Inhibitor] Allergy (Verified 02/25/22 11:39) Muscle [...] by Chivo Keller II, DO> 02/27/[address] [facility] Work Phone: 1(143) 179-895811-16-2021 Consult note Author Nikunj Shultz [facility] August 31, 2021 9:50am Note Date/Time August 31, 2021 9:33am [facility] [address] [address] Hem/Onc Consult Note - OP Signed Patient: Nas Ren MR#: [id number] : 1940 Acct:[id number] Age/Sex: 81 / M Type: REG RCR [...] 2021. He has recovered well from surgery. [facility] - Medical History Medical History: Medical History [...] Type: None Home Medications & Allergies Allergies Dwvmacn-UEJ-MkN Reductase Inhibitor [Mgkomxr-Xzb-Svz Reductase Inhibitor] Allergy (Verified 08/31/21 08:57) Muscle [...] or Bravo syndrome. [facility] and refer the patient for genetic testing. - Time with Patient Coordination of Care & Counseling Time: Greater than 50% of time spent with patient was for coordination of care (as documented) and acvh-mx-voaf counseling of patient and/or family. Dictated By: Nikunj Shultz MD DD/ Signed By: <Electronically signed by MD Nikunj Shultz> 08/31/21 0997 [facility] Work Phone: Evaluation note* Diagnosis Onset Date Resolution Status Colon cancer acute [facility] Work Phone: Evaluation noteNo [employer] Other Evaluation note* Diagnosis Onset Date Resolution Status Chronic bronchitis, simple a cute Chronic HFrEF (heart failure with reduced ejection fraction) acute Colon cancer acute Hypothyroidism due to medication acute Nonischemic dilated cardiomyopathy acute Obstructive sleep apnea acut e Paroxysmal atrial fibrillation acute Primary hypertension acute Stage 4 chronic kidney disease acute Type 2 diabetes mellitus with hyperglycemia acute Medicare annual wellness visit, subsequent noneactive Screening PSA (prostate specific antigen) noneactive Colon cancer acute [facility] Work Phone: Evaluation note* Diagnosis Onset Date Resolution Status Colon cancer acute Chronic bronchitis, simple a cute Chronic HFrEF (heart failure with reduced ejection fraction) acute Colon cancer acute Hypothyroidism due to medication acute Nonischemic dilated cardiomyopathy acute Obstructive sleep apnea acut e Paroxysmal atrial fibrillation acute Primary hypertension acute Stage 4 chronic kidney disease acute Type 2 diabetes mellitus with hyperglycemia acute [facility] Work Phone: History and physical note Author Ramesh Rascon [facility] July 21, 2022 9:27am Note Date/Time July 21, 2022 9: 27am [facility] [address] [place] [address] Gastroenterology H&P Signed Patient: Nas Ren MR#: [id number] : 1940 Acct:[id number] Age/Sex: 82 / M Adm Date: 2 Loc: Room: Type: [facility] Attending Dr: Ramesh Rascon MD Copies to: [...] <Electronically signed by Ramesh Rascon MD> 07/21/[address] [facility] Work Phone: History general Narrative - [...] HEART CATH 04/2016 Hospitalization History See above [employer] Other History general Narrative - Reported* Type [...] in year 07/2022 Hospitalization History See above [employer] Other history general Narrative - Reported* Type Description Date [...] Biventricular ICD 05/2023 Hospitalization History See above [employer] [facility] Other Hospital Discharge instructions Additional Instructions DISCHARGE [...] NOT operate machinery such as power tools, [employer] mowers, snow blowers, sewing machines, etc. for [...] Follow up with PCP. - Office number [phone].[facility] Work Phone: Progress note Author Leigha Nelson [facility] June 03, 2022 10:35am Note Date/Time June 03, 2022 10 :10am [facility] [place] [address] Hem/Onc Follow Up Note - OP Signed Patient: Nas Ren MR#: [id number] : 1940 Acct:[id number] Age/Sex: 82 / M Type: REG RCR [...] The son's daughter also has Glo-Blackfan anemia. MrKeo and Mrs. Ren were tested for Glo-Blackfan [...] for coordination of care (as documented) and fxll-sr-udvu counseling of patient and/or family. [facility] - Medical History Medical History: Medical History [...] % (Auto) 69.9, Lymph % (Auto) 17.2, Dyer % (Auto) 8.0, Eos % (Auto) 4.1, Baso % (Auto) 0.8, Neut # (Auto) 6.2, Lymph # (Auto) 1.5, Dyer # (Auto) 0.7, Eos # (Auto) 0.4, Baso # (Auto) 0.1, Nucleated RBC % (auto) 0.0 - Home Medications and Allergies Allergies/Adverse Reactions: Allergies Ntbsxlq-GKB-YnH Reductase Inhibitor [Cpyapsu-Hqo-Yum Reductase Inhibitor] Allergy (Verified 06/03/22 09:55) Muscle [...] By: <Electronically signed by EDWARD Nelson> 06/03/[address] [facility] Work Phone: Progress note Author Chivo Keller [facility] September 02, 2022 2:38pm Note Date/Time September 02, 2022 2:33pm [facility] [place] [address] Hem/Onc Follow Up Note - OP Signed Patient: Nas Ren MR#: [id number] : 1940 Acct:[id number] Age/Sex: 82 / M Type: REG RCR Copies to: MD Arnie Lui,SUSI Date of Service: 09/02/2022 Time of Service: [...] for coordination of care (as documented) and ayjy-vi-zzsk counseling of patient and/or family. [facility] - Medical History Medical History: Medical History [...] % (Auto) 68.3, Lymph % (Auto) 18.5, Dyer % (Auto) 8.4, Eos % (Auto) 4.3, Baso % (Auto) 0.5, Neut # (Auto) 4.6, Lymph # (Auto) 1.2, Dyer # (Auto) 0.6, Eos # (Auto) 0.3, Baso # (Auto) 0.0, Nucleated RBC % (auto) 0.1 - Home Medications and Allergies Allergies/Adverse Reactions: Allergies Mtfvxcu-KMZ-DtU Reductase Inhibitor [Jnqdexv-Rnm-Vgq Reductase Inhibitor] Allergy (Verified 09/02/22 14:10) Muscle [...] by Chivo Keller II, DO> 09/02/[address] [facility] Work Phone: Progress note Author Chivo Keller [facility] September 01, 2023 2:14pm Note Date/Time September 01, 2023 2:09pm [facility] [place] [address] Hem/Onc Follow Up Note - OP Signed Patient: Nas Ren MR#: [id number] : 1940 Acct:[id number] Age/Sex: 83 / M Type: REG RCR Copies to: MD Arnie Lui DO~ Date of Service: 09/01/2023 Time of Service: [...] for coordination of care (as documented) and bglf-cx-efyr counseling of patient and/or family. [facility] - Medical History Medical History: Medical History [...] Calcium 9.7, Iron 84, TIBC 290, Iron Yypzlmijdj25.0, Transferrin 207, Ferritin 239.3, Total Bilirubin 0.8, AST 23, ALT 20, Alkaline Phosphatase 114 H, Total Protein 6.9, Albumin 4.4, Globulin 2.5, Albumin/Globulin Ratio 1.8 08/30/23 09:32: Corrected WBC 7.0, Uncorrected WBC Count 7.0, RBC 3.96, Hgb 12.3L, Hct 36.8 L, MCV 92.8, MCH 30.9, MCHC 33.3, RDW 14.8, Plt Count 206, MPV 7.6, Neut % (Auto) 65.9, Lymph % (Auto) 21.9, Dyer % (Auto) 7.9, Eos % (Auto) 3.8, Baso % (Auto) 0.5, Nucleat RBC Rel Count 0.1, Neut # (Auto) 4.6, Lymph # (Auto) 1.5, Dyer # (Auto) 0.5, Eos # (Auto) 0.3, Baso # (Auto) 0.0 - Home Medications and Allergies Allergies/Adverse Reactions: Allergies Yovsnfq-IIK-XeI Reductase Inhibitor [Sagzwpw-Cro-Xno Reductase Inhibitor] Allergy (Verified 03/03/23 13:45) Muscle [...] by Chivo Keller II, DO> 09/01/[address] [facility] Work Phone: Progress note Author Chivo Keller [facility] March 01, 2024 11:39am Note Date/Time March 01, 2024 11:18 am [facility] [place] [address] Cancer Center Note Signed Patient: Nas Ren MR#: [id number] : 1940 Acct:[id number] Age/Sex: 83 / M Type: REG AMB Date of Service: 03/01/24 Copies to: Arnie Linda,DO~ Assessment & Plan A/P (1) Colon cancer: Plan T2 N0 M0, stage I colon cancer [...] few polyps. recommend repeat colonoscopy in jul 2024. February [address] scans without changes/concerns. Labs remain stable including CEA. aug 2023 ct imaging without recurrence. Iron deficiency anemia d/t chronic blood loss, malabsorption has been on oral iron for years May 2022 IV Injectafer x 2 doses. February 2023 iron studies ok. Patient Instructions: ct c/a/p with contrast in a year cbc, cmp, cea, iron studies b12 folate epo prior to f/u. CHEMO PLAN Treatment Plan Ferric Carboxymaltose (Injectafer) Clinical Indication No Indication Cycle Number Last Admin 1 of 1 Completed Cycle Day Next Admin No Active Chemotherapy History of Present Illness HPI 83-year-old male previously cared for by Dr. Shultz [...] colonoscopy is supposed to be next year. 03/01/24 no new issues. no hospitalization or med changes. follows with Dr. Linda regularly. Intake Vitals/Pain Assessment 03/01/24 11:11 Height 5 ft 11 in Weight 97.976 kg BMI 30.1 Body Fat % 49.43 BP 158/75 H Blood Pressure Location Lt brachial Position Sitting Temp 98 F Temp Source Temporal Pulse 67 Pulse Source NIBP Respiration 18 Pulse Oximetry (%) 95 Oxygen Delivery Method room air Are you having pain? No Intake Visit Reasons: colon cancer Accompanied by: Spouse Allergies simvastatin Allergy (Unknown, Verified 12/18/23 10:02) Unknown Reaction Kfelrsl-UJW-IcZ Reductase Inhibitor [Qqbohbs-Lde-Cxr Reductase Inhibitor] Allergy (Unknown, Verified 12/18/23 10:02) Muscle Pain tramadol Allergy (Verified 12/18/23 10:02) Itching Niacin ER Allergy (Unknown, Uncoded 12/18/23 10:02) Unknown Reaction - Last Reconciled 03/01/24 by Celia Barron allopurinol 100 mg PO DAILY 30 days amlodipine 10 mg PO DAILY apixaban (Eliquis) 2.5 mg PO BID benazepril 40 mg PO DAILY blood sugar diagnostic (Contour Next Test Strips) As directed cholecalciferol (vitamin D3) 5,000 units PO DAILY ezetimibe 10 mg PO DAILY sntofnasieg-oofuytzqy-xgmlbuqb 200-62.5-25 mcg (Trelegy Ellipta) 1 inh inhalation DAILY 90 days furosemide 80 mg PO DAILY 30 days hydralazine 100 mg PO TID 30 days isosorbide dinitrate 10 mg PO TID methimazole 5 mg PO .QOD metoprolol succinate ER 100 mg PO DAILY niacin 500 mg PO DAILY 30 days potassium chloride ER (Klor-Con) 10 mEq PO DAILY 30 days Gastrointestinal Is the patient taking opioids for pain control?: No Bowel Protocol for Opioids Given: No Bowel Pattern: Regular Bowel Movement Aid(s): None Falls Fall Precaution Measures Taken: Patient in chair Nurse's Note: Patient is here for a 6 month follow up with labs and imaging for review. No concerns voiced at time of intake. 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 Hypokalemia Hyperuricemia Hypertensive chronic kidney disease with stage 1 through stage 4 chronic kidney disease, or unspecified chronic kidney disease Hyperlipidemia type II Complete heart block Chronic venous insufficiency Biventricular ICD (implantable cardioverter-defibrillator) in place Hyperthyroidism Hyperlipidemia Chicken pox Arthritis Anemia Wears hearing aid in left ear Colon cancer s/p delmar-colectomy, surveillance colonoscopy 07/2022 (repeat 2 years) Hypercholesteremia Coronary artery disease A-fib hx ablation Surgical History Surgical History H/O cardiac radiofrequency ablation H/O right hemicolectomy H/O colonoscopy 07/2022 w/ plan to repeat 2 years History of left heart catheterization (LHC) by cutdown History of right heart catheterization (RHC) History of left knee replacement Pacemaker Family History Family History Father CHF (congestive heart failure) Mother Diabetes mellitus, type 2 Brother Cancer Son Blackfan Glo anemia Father Heart disease Mother Heart disease Social History Social History Smoking status: Former smoker Within the past year, how often did you have a drink containing alcohol: monthly or less Within the past year, how many standard drinks containing alcohol did you have on a typical day: 1 or 2 AUDIT-C Alcohol score interpretation: A score less than 4 is consistent with normal alcohol consumption. Physical Exam EXAM PHYSICAL EXAMINATION ECOG PS:1 General : patient is alert and oriented to person place and time, no acute distress. Neck: no JVD or thyromegaly. Lymph: no cervical, supraclavicular, axillary adenopathy. Heart: regular rate and rhythm no murmurs rubs or gallops. Abdomen: soft, nontender,, nondistended, no hepatosplenomegaly. Lungs: clear to auscultation bilaterally. No wheezes, rales, rhonchi. Extremities: no clubbing cyanosis Results - [facility] LAB RESULTS Corrected WBC 7.5 X10E3/uL (4.1-10.5) 02/22/24 08:23 Hgb 12.9 g/dL (13.0-17.0) L 02/22/24 08:23 Hct 38.1 % (38.8-50.0) L 02/22/24 08:23 MCV 93.2 fl (83.5-101) 02/22/24 08:23 RDW 14.6 % (12.0-14.8) 02/22/24 08:23 Plt Count 196 x10E3/uL (150-450) 02/22/24 08:23 Sodium 140 mmol/L (136-145) 02/22/24 08:23 Potassium 3.8 mmol/L (3.5-5.1) 02/22/24 08:23 BUN 59 mg/dL (7-25) H 02/22/24 08:23 Creatinine 2.38 mg/dL (0.70-1.30) H 02/22/24 08:23 Glucose 129 mg/dL (70-100) H 02/22/24 08:23 Est GFR (CKD-EPI) 26.711 mL/Min 02/22/24 08:23 Calcium 9.4 mg/dL (8.6-10.3) 02/22/24 08:23 Total Bilirubin 0.7 mg/dl (0.3-1.0) 02/22/24 08:23 AST 18 U/L (13-39) 02/22/24 08:23 ALT 15 U/L (7-52) 02/22/24 08:23 Alkaline Phosphatase 100 U/L (34-104) 02/22/24 08:23 Iron 85 ug/dL (50-212) 02/22/24 08:23 Iron Saturation 30.2 % (20-50) 02/22/24 08:23 Ferritin 236.8 ng/mL (23.9-336.2) 02/22/24 08:23 Total Protein 7.4 gm/dL (6.4-8.9) 02/22/24 08:23 Albumin 4.4 gm/dL (3.5-5.7) 02/22/24 08:23 Dictated By: Chivo Keller II, DO DD/ 1102 Signed By: <Electronically signed by Chivo Keller II, DO> 03/01/24 1132 [facility] Work Phone: Summary Purpose Family History No Family History Records Found Relationship Condition Age at Onset Recorded Date/T sergio father Congestive heart failure Unknown Not Specified Type 2 diabetes mellitus Unknown brother Malignant neoplasm Unknown natural son Congenital pure red cell aplasia Unknown Relationship Condition Age at Onset Recorded Date/T sergio father Congestive heart failure Unknown Not Specified Type 2 diabetes mellitus Unknown brother Malignant neoplasm Unknown natural son Congenital pure red cell aplasia Unknown father Heart disease Unknown Unknown Not Specified Heart disease Unknown Relationship Condition Age at Onset Recorded Date/T sergio father Congestive heart failure Unknown mother Type 2 diabetes mellitus Unknown brother Malignant neoplasm Unknown son Congenital pure red cell aplasia Unknown father Heart disease Unknown Unknown mother Heart disease Unknown Advance Directives No Advanced Directives Records Found Advance Directive Response Recorded Date/ Time Advance Directives No September 22, 2017 10:28am Advance Directive Response Recorded Date/ Time Advance Directives No September 22, 2017 9:28am Advance Directive Response Recorded Date/ Time Advance Directives No April 22 11:21am Chief Complaint and Reason for Visit Chief [...] Reason for Visit Colon cancer Chief Complaint Medicare Wellness Colon Cancer Reason for Visit Chronic bronchitis, simple Chronic HFrEF (heart failure with reduced ejection fraction) Colon cancer 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 Obstructive sleep apnea Paroxysmal atrial fibrillation Primary hypertension Stage 4 chronic kidney disease Type 2 diabetes mellitus with hyperglycemia Medicare annual wellness visit, subsequent Screening PSA (prostate specific antigen) Colon cancer Chief Complaint Colon Cancer 4 month follow up Reason for Visit Colon cancer Chronic bronchitis, simple Chronic HFrEF (heart failure with reduced ejection fraction) Colon cancer 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 Obstructive sleep apnea Paroxysmal atrial fibrillation Primary hypertension Stage 4 chronic kidney disease Type 2 diabetes mellitus with hyperglycemia Additional Source Comments (unrecognized sect ion and content) No Status Records FoundNo Status Records FoundNo Status Records FoundNo Status Records FoundNo Status Records FoundNo Status Records Found INFORMATION SOURCE (unrecogn ized section and content) DATE CREATED AUTHOR 07/09/2021 [facility] DATE CREATED AUTHOR AUTHOR'S ORGANIZ ATION 06/10/2022 [facility] DATE CREATED AUTHOR AUTHOR'S ORGANIZ ATION 03/01/2023 [facility] DATE CREATED AUTHOR AUTHOR'S ORGANIZ ATION 02/24/2024 [facility] DATE CREATED AUTHOR AUTHOR'S ORGANIZ ATION 06/28/2024 [facility] DATE CREATED AUTHOR AUTHOR'S ORGANIZ ATION 07/11/2024 [facility] EPIC Care Teams (unrecognized sec tion and content) Team Status: Active Member Role Status Dates Arnie Linda , DO Primary Care Provider Active Team Status: Active Member Role Status Dates Arnie Linda , DO Primary Care Provide r, Attending Provider Active Start: February 01, 2024 Team Status: Active Member Role Status Dates Arnie Linda , DO Primary Care Provider Active Start: March 01, 2024 Kalia Sánchez MD Referring Provider Active Sta rt: March 01, 2024 Chivo Keller II, DO Attending Provider Active Start: March 01, 2024 Team Status: Inactive Member Role Status Dates Arnie Linda , DO Primary Care Provider Active Start: March 01, 2024 End: March 01, 2024 Chivo Keller II, DO Attending Provider Active Start: March 01, 2024 End: March 01, 2024 Team Status: Inactive Member Role Status Dates Arnie Linda , DO Primary Care Provide r, Attending Provider Active Start: April 22, 2024 End: April 22, 2024 Team Status: Inactive Member Role Status Dates Arnie Linda , DO Primary Care Provide r, Attending Provider Active Start: December 18, 2023 End: December 18, 2023 Team Status: Active Member Role Status Dates Arnie Linda , DO Primary Care Provide r, Attending Provider Active Start: December 19, 2023 Team Status: Active Member Role Status Dates [...] be documented in an alternate sectionNo InformationNo InformationGoals may be documented in an alternate sectionGoals may be documented in an alternate section REASON FOR VISIT (unrecogniz ed section and [...] BE BASED ON THE PRIMARY CLINICAL RECORDS. [facility]. provides no warranty or guarantee of the accuracy or completeness of information in this document.
--- NOTE | 2024-07-17 19:12 | ECG_ITS ---
The [facility] Test Date: 2024-07-17 Pat Name: DELANO REN Department: Room: - Gender: Male Bpo Specialist: : 1940 Requested By: YAS LINDA Order Number: [id number] Reading MD: YAS LINDA Measurements Intervals [place] Rate: 71 P: -[id number] CA: -[id number] QRS: 140 QRSD: 138 T: 17 QT: 446 QTc: 469 Interpretive Statements 04609 Electronic ventricular pacemaker 9120 atypical ECG Electronically Signed On 07-18-2024 6:59:59 EDT by YAS LINDA
--- NOTE | 2024-07-17 19:13 | XR_ITS ---
The [address] [address] Patient Name: DELANO REN MRN: [id number] date: 1940 Sex: M Assigned Patient Location: ER Current Patient Location: ER Accession/Order Number: [id number] Exam Date: 07/17/2024 19:22 Report Date: 07/17/2024 20:07 At the request of: FERMIN MARKER Procedure: XR chest 1V EXAM: XR chest 1V at 1913 hours HISTORY: dizziness COMPARISON: 06/13/2023 TECHNIQUE: AP upright portable chest x-ray FINDINGS: The heart is not enlarged and the vasculature is slightly prominent centrally. The left-sided pacemaker remains in place. No acute infiltrate, effusion or pneumothorax is identified. The osseous structures are grossly intact with significant degenerative changes in the shoulders. XR/XR chest 1V IMPRESSION: No apparent acute infiltrate or evidence of cardiac decompensation. The overall appearance of the chest has not changed significantly. Electronically authenticated by: IRMA AGARWAL Date: 07/17/2024 20:07
--- NOTE | 2024-07-17 19:14 | ED_ITS ---
HPI HPI - General Adult General Chief complaint: Arrhythmia/Palpitations Stated complaint: DIZZINESS Time Seen by Provider: 07/17/24 19:08 Source: patient Mode of arrival: Wheelchair History of Present Illness HPI narrative: This 84-year-old male with a history of coronary artery disease who has atrial fibrillation and is on Eliquis twice a day is brought to the emergency department by his and daughter for evaluation of dizziness. The patient states he was sitting in his chair and suddenly felt dizzy. He states he continued to feel dizzy for about 5 minutes before alerting this to his and then felt dizzy for an additional 15 minutes. Since that time his dizziness has resolved. He feels some generalized weakness. He has not had a fever or cough. He denies any chest pain or shortness of breath. He has no abdominal pain or back pain. He has not had any recent falls. He denies any headache he has not had any slurred speech confusion or other focal neurologic deficits. Related Data Home Medications ?Medication ?Instructions ?Recorded ?Confirmed allopurinol 100 mg tablet 100 mg PO DAILY 07/17/24 07/17/24 amlodipine 10 mg tablet 10 mg PO DAILY 07/17/24 07/17/24 apixaban 2.5 mg tablet (Eliquis) 2.5 mg PO BID 07/17/24 07/17/24 ezetimibe 10 mg tablet 10 mg PO DAILY 07/17/24 07/17/24 fluticasone fur. 200 mcg-umeclid 1 inh inhalation DAILY 07/17/24 07/17/24 62.5 mcg-vilant 25 mcg inhalat.powder (Trelegy Ellipta) furosemide 80 mg tablet 80 mg PO DAILY 07/17/24 07/17/24 hydralazine 100 mg tablet 100 mg PO TID 07/17/24 07/17/24 isosorbide dinitrate 10 mg tablet 10 mg PO TID 07/17/24 07/17/24 methimazole 10 mg tablet 10 mg PO .every other day 07/17/24 07/17/24 metoprolol succinate 100 mg 100 mg PO DAILY 07/17/24 07/17/24 tablet,extended release 24 hr niacin 500 mg tablet 500 mg PO DAILY 07/17/24 07/17/24 potassium chloride 10 mEq 10 meq PO DAILY 07/17/24 07/17/24 tablet,extended release(part/cryst) Allergies Allergy/AdvReac Type Severity Reaction Status Date / Time Cyhiuvd-LRJ-UrW Reductase Allergy Severe pain Verified 07/17/24 18:24 Inhibitor tramadol Allergy Severe Hives Verified 07/17/24 18:24 Opioid HPI Opioid Management Most Recent Opioid Data: No Data to Display Review of Systems ROS Status of ROS 10 or more systems reviewed and unremark able except as noted in history and below PFSH PFS Medical History (Updated 07/17/24 @ 20:32 by Candi Gonzalez) Back pain ?M54.9 - Dorsalgia, unspecified (ICD-10) Cardiac pacemaker ?Z95.0 - Presence of cardiac pacemaker (ICD-10) Heart block ?I45.9 - Conduction disorder, unspecified (ICD-10) Surgical History (Updated 07/17/24 @ 20:32 by Candi Gonzalez) H/O cardiac radiofrequency ablation ?Z98.890 - Other specified postprocedural states (ICD-10) Exam Narrative Exam Narrative: Vital signs and Nursing Notes reviewed: Patient is afebrile with a normal pulse, normal blood pressure, he is mildly hypoxic with pulse ox of 92% on room air General: Awake, alert, oriented, no acute distress, lying comfortably on the stretcher HEENT: Normocephalic atraumatic, mucous membranes are moist and pink, eyes are clear, normal conjunctiva, vision is grossly intact Neck: Supple, no JVD Chest: Lungs are clear to auscultation with good air entry, there is no wheezing rhonchi or rales appreciated no accessory muscle use, patient is speaking in complete sentences-no chest wall tenderness to palpation CVS: Regular rate and rhythm S1-S2, no murmurs rubs or gallops, pulses are brisk and equal bilaterally-paced rhythm on the monitor ABD: Soft, nondistended, nontender, no rebound guarding or rigidity, bowel sounds are normal, no pulsatile masses appreciated Extremities: Moving all extremities, no lower extremity tenderness or swelling noted, negative Homans' sign, pulses are brisk and equal bilaterally Skin: Normal in appearance without rash,pallor, petechiae or purpura Neuro: No focal deficits, speech is clear, visual inspector strength is intact, upper and lower extremity strength and sensation is intact Constitutional Vital Signs, click to edit/add: Last Vital Signs Temp 98.2 F 07/17/24 18:15 Pulse 70 07/17/24 20:20 Resp 17 07/17/24 20:20 BP 110/74 07/17/24 20:15 Pulse Ox 95 07/17/24 20:20 Course Vital Signs Vital signs: Vital Signs Temperature 98.2 F 07/17/24 18:15 Pulse Rate 70 07/17/24 18:15 Respiratory Rate 18 07/17/24 18:15 Blood Pressure 108/60 07/17/24 18:15 Temperature 98.2 F 07/17/24 18:15 Pulse Rate 70 07/17/24 20:20 Respiratory Rate 17 07/17/24 20:20 Blood Pressure 110/74 07/17/24 20:15 Pulse Oximetry 95 07/17/24 20:20 Medical Decision Making MDM Narrative Medical decision making narrative: This 84-year-old male with a history of coronary artery disease status post defibrillator placement, COPD, diabetes, chronic renal insufficiency who sees a road cleaner at [facility] is brought to the emergency department by his and daughter for evaluation of an episode of dizziness that happened earlier in the evening. The patient states around 5 PM he took his pills and then was sitting in his chair when he felt dizzy. He did not pass out. He has no focal neurologic symptoms. He does not have a headache. The symptoms have resolved prior to arrival. EKG was done upon arrival that is a paced rhythm at 70 bpm. The patient does have a history of atrial fibrillation and atrial flutter and has undergone ablation in the past. An IV was placed and routine labs were ordered and are reviewed. He has a normal white count and hemoglobin is stable. His creatinine is elevated today at 3.53. His baseline creatinine is 2.5-2.6. He has a normal troponin. BNP is elevated. His chest x-ray does not show any sign of florid heart failure. The results of his labs were discussed with the patient's and daughter. He has not had any recent medication changes. His thinks that maybe he has not b een drinking enough fluids recently. He was offered admission to the hospital but does not wish to be admitted at this time. He will be discharged home with a copy of his labs with recommendation for close follow-up with his road cleaner in [place]. After he received his IV fluids he was given a trial of ambulation and did not have any dizziness ataxia or other notable abnormality. I again offered him admission for further evaluation and treatment but he declines and will be discharged home with a copy of his labs to share with his road cleaner in [place]. He was encouraged to return to the emergency department anytime for worsening symptoms or as needed. Medical Records Medical records narrative: The [address] [address] XRay Report Signed Patient: DELANO REN MR#: [id number] : 1940 Acct:[id number] Age/Sex: 84 / M ADM Date: 07/17/24 Loc: ER Attending Dr: Ordering Physician: Roxanne Alvarez Date of Service: 07/17/24 Procedure(s): XR chest 1V Accession Number(s): [id number] cc: Arnie Lund D.O.; Roxanne Alvarez~ The [address] [address] Patient Name: DELANO REN MRN: [id number] date: 1940 Sex: M Assigned Patient Location: ER Current Patient Location: ER Accession/Order Number: [id number] Exam Date: 07/17/2024 19:22 Report Date: 07/17/2024 20:07 At the request of: ROXANNE ALVAREZ Procedure: XR chest 1V EXAM: XR chest 1V at 1913 hours HISTORY: dizziness COMPARISON: 06/13/2023 TECHNIQUE: AP upright portable chest x-ray FINDINGS: The heart is not enlarged and the vasculature is slightly prominent centrally. The left-sided pacemaker remains in place. No acute infiltrate, effusion or pneumothorax is identified. The osseous structures are grossly intact with significant degenerative changes in the shoulders. XR/XR chest 1V IMPRESSION: No apparent acute infiltrate or evidence of cardiac decompensation. The overall appearance of the chest has not changed significantly. Electronically authenticated by: IRMA AGARWAL Date: 07/17/2024 20:07 Lab Data Labs: Lab Results 07/17/24 Range/Units 18:29 WBC 10.8 (4.0-11.0) 10^3/uL RBC 4.05 L (4.70-6.10) 10^6/uL Hgb 12.5 L (14.0-18.0) g/dL Hct 38.0 L (42.0-54.0) % MCV 93.8 (80.0-94.0) fL MCH 30.9 (25.9-34.0) pg MCHC 32.9 (29.9-35.2) g/dL RDW 13.6 (11.0-15.0) % Plt Count 220 (150-450) 10^3/uL MPV 9.8 (9.5-13.5) fL Neut % (Auto) 74.1 (43.0-75.0) % Lymph % (Auto) 12.9 L (20.5-60.0) % [place] % (Auto) 9.5 (1.7-12.0) % Eos % (Auto) 2.8 (0.9-7.0) % Baso % (Auto) 0.2 (0.2-2.0) % Neut # (Auto) 8.0 H (1.4-6.5) 10^3/uL Lymph # (Auto) 1.4 (1.2-3.8) 10^3/uL [place] # (Auto) 1.0 H (0.3-0.8) 10^3/uL Eos # (Auto) 0.3 (0.0-0.7) 10^3/uL Baso # (Auto) 0.0 (0.0-0.1) 10^3/uL Abs Immat Gran (auto) 0.05 H (0.00-0.03) 10^3/uL Imm/Tot Granulo (auto) 0.5 (0.0-0.5) % Sodium 138 (136-145) mmol/L Potassium 3.9 (3.5-5.1) mmol/L Chloride 98 (98-107) mmol/L Carbon Dioxide 31.6 (21.0-32.0) mmol/L Anion Gap 12.3 BUN 56.0 H (7.0-18.0) mg/dL Creatinine 3.53 H (0.70-1.30) mg/dL Est GFR ( Amer) 20 L (>=60 mL/min/1.73m^2) Est GFR (Non-Af Amer) 17 L (>=60 mL/min/1.73m^2) BUN/Creatinine Ratio 15.9 Glucose 182 H (74-106) mg/dL Calcium 9.1 (8.5-10.1) mg/dL Total Bilirubin 0.5 (0.2-1.0) mg/dL AST 23 (15-37) U/L ALT 22 (16-63) U/L Alkaline Phosphatase 123 H (46-116) U/L Troponin I High Sens 25.6 (4.0-76.1) pg/mL NT-Pro-B Natriuret Pep 1933.0 H* (<=1800.0) pg/mL Total Protein 7.2 (6.4-8.2) g/dL Albumin 3.7 (3.4-5.0) g/dL Globulin 3.5 g/dL Albumin/Globulin Ratio 1.1 ECG Data Attestation: I personally reviewed and interpreted this ECG as follows: (Paced rhythm at 70 bpm, occasional PVCs, no acute ST segment elevation or T wave inv ersion) Discharge Plan Discharge Chief Complaint: Arrhythmia/Palpitations Clinical Impression: Dizziness, Acute on chronic renal insufficiency Patient Disposition: Home, Self-Care Time of Disposition Decision: 20:51 Condition: Good Prescriptions / Home Meds: No Action allopurinol 100 mg tablet 100 mg PO DAILY amlodipine 10 mg tablet 10 mg PO DAILY Eliquis 2.5 mg tablet 2.5 mg PO BID ezetimibe 10 mg tablet 10 mg PO DAILY Trelegy Ellipta 200-62.5-25 mcg blister with device 1 inh INHALATION DAILY furosemide 80 mg tablet 80 mg PO DAILY hydralazine 100 mg tablet 100 mg PO TID isosorbide dinitrate 10 mg tablet 10 mg PO TID methimazole 10 mg tablet 10 mg PO .every other day metoprolol succinate 100 mg tablet extended release 24 hr 100 mg PO DAILY potassium chloride 10 mEq tablet,ER particles/crystals 10 meq PO DAILY niacin 500 mg tablet 500 mg PO DAILY Print Language: [place]i Instructions: Chronic Kidney Disease (ED), Lightheadedness (ED), Impaired Kidney Function (ED) Referrals: Arnie Lund DO [Primary Care Provider] - 1 week
[2024-07-17 19:27] LABS: Basophils Percent Auto 0.2 % (0.2-2.0); Eosinophils Absolute Auto 0.3 10^3/uL (0.0-0.7); Eosinophils Percent Auto 2.8 % (0.9-7.0); Hemoglobin 12.5 g/dL (14.0-18.0); Immature Granulocytes Abs Auto 0.05 10^3/uL (0.00-0.03); Immature Granulocytes Pct Auto 0.5 % (0.0-0.5); Lymphocytes Absolute Auto 1.4 10^3/uL (1.2-3.8); Lymphocytes Percent Auto 12.9 % (20.5-60.0); Mean Corpuscular HGB Conc 32.9 g/dL (29.9-35.2); Mean Corpuscular Hemoglobin 30.9 pg (25.9-34.0); Mean Corpuscular Volume 93.8 fL (80.0-94.0); Mean Platelet Volume 9.8 fL (9.5-13.5); Monocytes Percent Auto 9.5 % (1.7-12.0); Neutrophils Percent Auto 74.1 % (43.0-75.0); Platelet Count 220 10^3/uL (150-450); Red Blood Count 4.05 10^6/uL (4.70-6.10); Red Cell Distribution Width 13.6 % (11.0-15.0); White Blood Count 10.8 10^3/uL (4.0-11.0)
[2024-07-17] MEDS: 0.9 % SODIUM CHLORIDE 500 ML IV (19:38)
[2024-07-17 19:40] LABS: Troponin I High Sensitivity 25.6 pg/mL (4.0-76.1)
[2024-07-17 19:44] LABS: Alanine Aminotransferase 22 U/L (16-63); Albumin Globulin Ratio 1.1; Albumin Level 3.7 g/dL (3.4-5.0); Alkaline Phosphatase 123 U/L (46-116); Anion Gap 12.3; Aspartate Amino Transferase 23 U/L (15-37); BUN Creatinine Ratio 15.9; Bilirubin Total 0.5 mg/dL (0.2-1.0); Calcium 9.1 mg/dL (8.5-10.1); Carbon Dioxide 31.6 mmol/L (21.0-32.0); Chloride 98 mmol/L (98-107); Estimated GFR (African America 20 (>=60 mL/min/1.73m^2); Estimated GFR (Non-African Ame 17 (>=60 mL/min/1.73m^2); Globulin 3.5 g/dL; Glucose 182 mg/dL (74-106); Potassium 3.9 mmol/L (3.5-5.1); Sodium 138 mmol/L (136-145); Total Protein 7.2 g/dL (6.4-8.2)
== END 2024-07-17 21:01 | disposition home or self-care (01) ==
PROVIDERS: Emergency Provider Emergency Medicine; PCP Internal Medicine
DX: R42 Dizziness and giddiness (principal); N28.9 Disorder of kidney and ureter, unspecified; N18.9 Chronic kidney disease, unspecified; I25.10 Atherosclerotic heart disease of native coronary artery without angina pectoris; I48.91 Unspecified atrial fibrillation; Z79.01 Long term (current) use of anticoagulants; Z95.810 Presence of automatic (implantable) cardiac defibrillator; J44.9 Chronic obstructive pulmonary disease, unspecified; E11.22 Type 2 diabetes mellitus with diabetic chronic kidney disease
CPT/HCPCS: 36415; 71045; 80053; 81001; 83880; 84484; 85025; 93005; 99285

== ENCOUNTER 2024-08-01 08:12 | Outpatient (OUT) | payer MEDICARE, SELFPAY ==
--- OUTSIDE RECORDS SUMMARY | 2024-08-01 08:18 | XMS_ITS | CCD ---
Author Organization [facility] Care Team Providers Care Bulk Sugar Handler Name Role Phone GILMER SALAZAR Attending Unavailable GILMER SALAZAR Admitting Unavailable ARNIE LINDA Referring Unavailable ARNIE LINDA Primary Care Unavailable DO Arnie Linda Primary Care Provider CHARLENE Kelly Attending Provider MD Kalia Sánchez Referring Provider Arianna APARICIO, DO Chivo Howell Attending Provider [phone] MD Kalia Sánchez Referring Provider DO Chivo Keller II Attending Provider MD Ramesh Rascon Attending Provider [phone] DO Arnie Linda Primary Care Provider [phone] MD Ramesh Rascon Attending Provider [phone] MD Kalia Sánchez Referring Provider DO Chivo Keller II Attending Provider Arnie Linda Unavailable LAURAFERMIN Admitting Unavailable LAURA, FERMIN Attending Unavailable LAURAFERMIN Consulting Unavailable MADDI, DR SORENSON Primary Care Unavailable MISC, DR VELASQUEZ Consulting Unavailable MISC, DR VELASQUEZ Admitting Unavailable MISC, DR VELASQUEZ Attending Unavailable BALL, DR SORENSON Primary Care Unavailable GRIGSBY ., DR RUPINDER Staples Admitting Unavailable GRIGSBY ., DR RUPINDER Staples Attending Unavailable RUCKER, DR MICHAELA Jacobson Consulting Unavailable BALL, DR SORENSON Primary Care [...] Unavailable KUNAL BUTLER, AVERY Ennis Admitting Unavailab Georgia BUTLER, AVERY Ennis Attending Unavailab le MISC, DR [...] MISC, DR VELASQUEZ Attending Unavailable WEST, JJ Valdse Consulting Unavailable BALL, DR SORENSON Primary Care [...] Unavailab shaina SYED MD, AVERY Ennis Attending Omar Ho MD, AVERY Ennis Consulting Omar Stuart, DR SORENSON Primary Care Unavailable MOUKARBEL, DR SEYMOUR Admitting Unavailable MOUKARBEL, DR SEYMOUR Attending Unavailable MADDI, DR SORENSON Primary Care Unavailable DO Arnie Linda Primary Care Provider [phone] MD Kalia Sánchez Referring Provider Adamdainaicz II, DO Chivo J Attending Provider Kalia Sánchez Referring Unavailable Arnie Linda Primary Care Unavailable Arianna II, Chivo Howell Attending Unavaila ble Adamowicz II, Chivo Howell Admitting Unavaila ble DO Arnie Linda Primary Care Provider [phone] MD Kalia Sánchez Referring Provider Arianna II, DO Chivo Howell Attending Provider RANDALL TELLO Attending Unavailable BASHIR, GREG Referring Unavailable MIKAYLA, TRANG Referring Unavailable MIKAYLA, TRANG Referring Unavailable MOUKARBEL, DAWN Attending Unavailable MIKAYLATRANG Referring Unavailable MOUKARBEL, DAWN Attending Unavailable LORIENRRIQUE Attending Unavailable MIKAYLA, TRANG Referring Unavailable BASHIR, GREG Referring Unavailable BASHIR, GREG Referring Unavailable MIKAYLA, TRANG Referring Unavailable MIKAYLA, TRANG Referring Unavailable MIKAYLA, TRANG Referring Unavailable MIKAYLA, TRANG Referring Unavailable MIKAYLA, TRANG Referring Unavailable Allergies Allergy Classification Reported Allergen(s) Allergy Type Date of Onset Reaction(s) Facility (3 sources) black walnut pollen extract; Translations: [BVUBFKW-QCA-ETT REDUCTASE INHIBITORS] Drug Allergy 05-16-20 18 [facility] Repository (11 sources) traMADol; Translations: [TRAMADOL] Drug Allergy 03-30-20 22 Itching [facility] Repository (9 sources) Bqwspqh-DGN-MaD Reductase Inhibitor; Translations: [Aydxwus-EEM-JwH Reductase Inhibitor] Allergy to substance 06-03-20 Muscle Pain [facility] (13 sources) Albuterol Drug Allergy Unknown [facility] Other (17 sources) ezetimibe Drug Allergy Unknown [facility] Other (13 sources) HMG-CoA reductase inhibitor Drug allergy Unknown [facility] Other (19 sources) Niacin Drug Allergy Unknown [facility] Other (19 sources) Simvastatin Drug Allergy 12-18-19 Unknown, Unknown Reaction [facility] (8 sources) Statins Depletion *DIETARY PRODUCTS/DIETARY MANAGE Propensity to adverse reactions Unknown [facility] Other (4 sources) Allergies Reconciled Propensity to adverse reactions Unknown [facility] Other (8 sources) Albuterol *ANTIASTHMATIC AND BRONCHODILATOR AGENTS Propensity to adverse reactions Comment:dedrick lala more with this [facility] Other (4 sources) patient allergy list reviewed by nurse or physicia Propensity to adverse reactions 04-04-20 Comment:Done [facility] Other (4 sources) Niacin Drug Allergy 12-18-19 24 Unknown, Unknown Reaction [facility] (1 source) traMADol Drug Allergy 03-03-20 [facility] Repository Medications Current Medications Medication Drug [...] 03, 2023 12:00am December 15, 2023 2:47pm Hwijkuirafc-Iwznqhrjd-Ofdqcl er (2 sources) Start: 02-15-2024 Mjhsxtgpzne-Qfaoizpae-Lthqcb er (Trelegy Ellipta) 200-62.5-25 mcg blister with device Active 1 INH INHALATION Daily February 15, 2024 12:00am furosemide 80 mg [...] Discontinued 1 MG PO Q48H 15 June 09, 2021 12:00am August 02, 2021 [...] 2022 8:06am take 1 tablet by dakotah th once daily Ferrous Sulfate 325 (65 Fe) [...] 28 June 09, 2021 August 02, 2021 1:40pm polyethylene glycol 3350 48766 mg powder for oral solution (8 sources) [...] kidney disease] Onset: 03-01-2015 08-31-2021 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 (20 [...] Coronary arteriosclerosis; Translations: [Atherosclerotic heart disease of [place] coronary artery without angina pectoris] Onset: 03-09-2022 [...] EXPOS COVID-19] Onset: 03-09-2022 Unclassified (2 sources) Other persistent atrial fibrillation; Translations: [Other persistent atrial fibrillation] Onset: 03-29-2024 Unclassified (2 sources) Longstanding persistent atrial fibrillation; [...] 12-28-2017 Episodic Other aftercare (1 source) Other fci (current) drug therapy; Translations: [OTH ASSISTED CURRENT DRUG THERAPY] Onset: 03-09-2022 Episodic Other [...] Range Facility Office Visiton 03-29-2024 Follow-up visit [id number] Nas Ren 1940 M Date Provider Department Center 03/29/2024 DAWN YOUSIF [facility] Family History Problem Relation Age of Onset Diabetes Mother Heart disease Father Glaucoma Brother Diabetes Maternal Grandmother Clotting disorder Other Family Status - Relation Status Age at Mother Father Brother Maternal Grandmother Other Level of Service:84219 [place] OFFICE/OUTPATIENT ESTABLISHED LOW MDM 20 MIN Normal [facility] Alanine aminotransferase [En zymatic activity/volume] in Serum or PlasmaOrdered By: Chivo Keller on 02-22-2024 ALT [Catalytic activity/Vol] 15 U/L 7-52 [facility] Albumin [Mass/volume] in Ser um or PlasmaOrdered By: Chivo Keller on 02-22-2024 Albumin [Mass/Vol] 3.9 g/dL 2.9-4.4 [facility] Albumin [Mass/volume] in Ser um or Plasma by Bromocresol green (BCG) dye binding methoOrdered By: Chivo Keller on 02-22-2024 Albumin BCG dye [Mass/Vol] 4.4 g/dL 3.5-5.7 [facility] Alkaline phosphatase [Enzyma tic activity/volume] in Serum or PlasmaOrdered By: Chivo Keller on 02-22-2024 ALP [Catalytic activity/Vol] 100 U/L 34-104 [facility] Aspartate aminotransferase [ Enzymatic activity/volume] in Serum or PlasmaOrdered By: Chivo Keller on 02-22-2024 AST [Catalytic activity/Vol] 18 U/L 13-39 [facility] Basophils Auto (Bld) [#/Vol] Ordered By: Chivo Keller on 02-22-2024 Basophils (Bld) [#/Vol] 0.0 10*3/uL 0.0-0.2 [facility] Basophils/100 WBC Auto (Bld) Ordered By: Chivo Keller on 02-22-2024 Basophils/100 WBC (Bld) 0.5 % . F [facility] Bilirubin.total [Mass/volume ] in Serum or PlasmaOrdered By: Chivo Keller on 02-22-2024 Bilirubin [Mass/Vol] 0.7 mg/dL 0.3-1.[address] [facility] [address] abdomen pelvis wo conon 0 02-22-2024 CT abdomen pelvis wo con [facility] [place] [address] CT Scan Report Signed Patient: Nas Ren MR#: [id number] 24 : 1940 Acct:[id number] Age/Sex: 83 / M ADM Date: 02/22/24 Loc: Room: Type: [facility] Attending Dr: Chivo Keller II DO Copies to: Chivo Keller II, DO Ordering Provider: Chivo Keller II, DO Date of Service: 02/22/24 CT/CT abdomen pelvis wo con: surveilance ([id number]) CT/CT chest wo con: surveilance CT chest [...] Michaela Bernard M.D.02/22/2024 2:03 PM Dictation Location: [place] [address] Transcribed By: [facility] 02/22/24 1403 Dictated By: Michaela Bernard II, MD 02/22/24 1351 Signed By: 02/22/24 1403 Normal [facility] Calcium [Mass/volume] in Ser um or PlasmaOrdered By: Chivo Keller on 02-22-2024 Calcium [Mass/Vol] 9.4 mg/dL 8.6-10.3 [facility] Carbon dioxide, total [Moles /volume] in Serum or PlasmaOrdered By: Chivo Keller on 02-22-2024 CO2 [Moles/Vol] 33.2 mmol/L High 21.0-31.0 [facility] Chloride [Moles/volume] in S alayna or PlasmaOrdered By: Chivo Keller on 02-22-2024 Chloride [Moles/Vol] 100 mmol/L 98-107 [facility] Complete Blood Count Auto Di ffon 02-22-2024 Basophils (Bld) [#/Vol] 0.0 10*3/uL Normal 0.0-0.2 [facility] Comment on above: Result Comment: PERF ORMED BY: [facility] [address] [place] [address] PATHOLOGIST [employer] WORKER TRU UMANZOR M.D. Performed By: #### I FE SERUM, SPE, KAPPA #### [facility] , #### [id number], TONY, CMP, FE and TIBC, CBC #### [address] Basophils/100 WBC (Bld) 0.5 % Normal . T mela [facility] Comment on above: Performed By: #### I FE SERUM, SPE, KAPPA #### [facility] , #### [id number], TONY, CMP, FE and TIBC, CBC #### [address] Eosinophils (Bld) [#/Vol] 0.3 10*3/uL Normal 0.0-0.45 [facility] Comment on above: Performed By: #### I FE SERUM, SPE, KAPPA #### [facility] , #### [id number], TONY, CMP, FE and TIBC, CBC #### [address] Eosinophils/100 WBC (Bld) 3.8 % Normal . [facility] Comment on above: Performed By: #### I FE SERUM, SPE, KAPPA #### [facility] , #### [id number], TONY, CMP, FE and TIBC, CBC #### [address] Erythrocyte distribution width (RBC) [Ratio] 14.6 % Normal 12.0-14.8 [facility] Comment on above: Performed By: #### I FE SERUM, SPE, KAPPA #### [facility] , #### [id number], TONY, CMP, FE and TIBC, CBC #### [address] Hematocrit (Bld) [Volume fraction] 38.1 % Low 38.8-50.0 [facility] Comment on above: Performed By: #### I FE SERUM, SPE, KAPPA #### [facility] , #### [id number], TONY, CMP, FE and TIBC, CBC #### [address] Hemoglobin (Bld) [Mass/Vol] 12.9 g/dL Low 13.0-17.0 [facility] Comment on above: Performed By: #### I FE SERUM, SPE, KAPPA #### [facility] , #### [id number], TONY, CMP, FE and TIBC, CBC #### [address] Lymphocytes (Bld) [#/Vol] 1.4 10*3/uL Normal 1.00-4.8 [facility] Comment on above: Performed By: #### I FE SERUM, SPE, KAPPA #### [facility] , #### [id number], TONY, CMP, FE and TIBC, CBC #### [address] Lymphocytes/100 WBC (Bld) 19.1 % Normal . [facility] Comment on above: Performed By: #### I FE SERUM, SPE, KAPPA #### [facility] , #### [id number], TONY, CMP, FE and TIBC, CBC #### [address] MCH (RBC) [Entitic mass] 31.6 pg Normal 27.5-35.2 [facility] Comment on above: Performed By: #### I FE SERUM, SPE, KAPPA #### [facility] , #### [id number], TONY, CMP, FE and TIBC, CBC #### [address] MCV (RBC) [Entitic vol] 93.2 fL Normal 83.5-101 [facility] Comment on above: Performed By: #### I FE SERUM, SPE, KAPPA #### [facility] , #### [id number], TONY, CMP, FE and TIBC, CBC #### [address] Mean Corpuscular HGB Conc 33.9 g/dL Normal 32.5-35.6 [facility] Comment on above: Performed By: #### I FE SERUM, SPE, KAPPA #### [facility] , #### [id number], TONY, CMP, FE and TIBC, CBC #### [address] Monocytes (Bld) [#/Vol] 0.8 10*3/uL Normal 0.0-0.8 [facility] Comment on above: Performed By: #### I FE SERUM, SPE, KAPPA #### [facility] , #### [id number], TONY, CMP, FE and TIBC, CBC #### [address] Monocytes/100 WBC (Bld) 10.0 % Normal . [facility] Comment on above: Performed By: #### I FE SERUM, SPE, KAPPA #### [facility] , #### [id number], TONY, CMP, FE and TIBC, CBC #### [address] Neutrophils (Bld) [#/Vol] 5.0 10*3/uL Normal 1.8-7.7 [facility] Comment on above: Performed By: #### I FE SERUM, SPE, KAPPA #### [facility] , #### [id number], TONY, CMP, FE and TIBC, CBC #### [address] Neutrophils/100 WBC (Bld) 66.6 % Normal . [facility] Comment on above: Performed By: #### I FE SERUM, SPE, KAPPA #### [facility] , #### [id number], TONY, CMP, FE and TIBC, CBC #### [address] NRBC% 0.0 /100{WBC} Normal 0-0.5 [facility] Comment on above: Performed By: #### I FE SERUM, SPE, KAPPA #### [facility] , #### [id number], TONY, CMP, FE and TIBC, CBC #### [address] Platelet mean volume (Bld) [Entitic vol] 7.6 fL Normal 6.6-10.1 [facility] Comment on above: Performed By: #### I FE SERUM, SPE, KAPPA #### [facility] , #### [id number], TONY, CMP, FE and TIBC, CBC #### [address] Platelets (Bld) [#/Vol] 196 10*3/uL Normal 150-450 [facility] Comment on above: Performed By: #### I FE SERUM, SPE, KAPPA #### [facility] , #### [id number], TONY, CMP, FE and TIBC, CBC #### [address] RBC (Bld) [#/Vol] 4.09 10*6/uL Normal 3.90-5.60 [facility] Comment on above: Performed By: #### I FE SERUM, SPE, KAPPA #### [facility] , #### [id number], TONY, CMP, FE and TIBC, CBC #### [address] WBC (Bld) [#/Vol] 7.5 10*3/uL Normal 4.1-10.5 [facility] Comment on above: Performed By: #### I FE SERUM, SPE, KAPPA #### [facility] , #### [id number], TONY, CMP, FE and TIBC, CBC #### [facility] [address] [place] [address] Comprehensive Metabolic Pane arelis 02-22-2024 Albumin [Mass/Vol] 4.4 g/dL Normal 3.5-5.7 [facility] Comment on above: Performed By: #### I FE SERUM, SPE, KAPPA #### [facility] , #### [id number], TONY, CMP, FE and TIBC, CBC #### [address] Albumin/Globulin [Mass ratio] 1.5 {ratio} Normal [facility] Comment on above: Performed By: #### I FE SERUM, SPE, KAPPA #### [facility] , #### [id number], TONY, CMP, FE and TIBC, CBC #### [facility] [address] [place] [address] ALP [Catalytic activity/Vol] 100 U/L Normal 34-104 [facility] Comment on above: Performed By: #### I FE SERUM, SPE, KAPPA #### [facility] , #### [id number], TONY, CMP, FE and TIBC, CBC #### [address] ALT [Catalytic activity/Vol] 15 U/L Normal 7-52 [facility] Comment on above: Performed By: #### I FE SERUM, SPE, KAPPA #### [facility] , #### [id number], TONY, CMP, FE and TIBC, CBC #### [facility] [address] [place] [address] Anion gap [Moles/Vol] 10.6 mmol/L Normal 6.0-15.0 [facility] Comment on above: Performed By: #### I FE SERUM, SPE, KAPPA #### [facility] , #### [id number], TONY, CMP, FE and TIBC, CBC #### [address] AST [Catalytic activity/Vol] 18 U/L Normal 13-39 [facility] Comment on above: Performed By: #### I FE SERUM, SPE, KAPPA #### [facility] , #### [id number], TONY, CMP, FE and TIBC, CBC #### [address] Bilirubin [Mass/Vol] 0.7 mg/dL Normal 0.3-1.0 [facility] Comment on above: Performed By: #### I FE SERUM, SPE, KAPPA #### [facility] , #### [id number], TONY, CMP, FE and TIBC, CBC #### [address] Calcium [Mass/Vol] 9.4 mg/dL Normal 8.6-10.3 [facility] Comment on above: Performed By: #### I FE SERUM, SPE, KAPPA #### [facility] , #### [id number], TONY, CMP, FE and TIBC, CBC #### [address] Chloride [Moles/Vol] 100 mmol/L Normal 98-107 [facility] Comment on above: Performed By: #### I FE SERUM, SPE, KAPPA #### [facility] , #### [id number], TONY, CMP, FE and TIBC, CBC #### [place] [address] [place] CO2 [Moles/Vol] 33.2 mmol/L High 21.0-31.0 [facility] Comment on above: Performed By: #### I FE SERUM, SPE, KAPPA #### [facility] , #### [id number], TONY, CMP, FE and TIBC, CBC #### [facility] [address] Creatinine [Mass/Vol] 2.38 mg/dL High 0.70-1.30 [facility] Comment on above: Performed By: #### I FE SERUM, SPE, KAPPA #### [facility] , #### [id number], TONY, CMP, FE and TIBC, CBC #### [address] Creatinine Clr Calc Pharmacy 29.06 Normal [facility] Comment on above: Performed By: #### I FE SERUM, SPE, KAPPA #### [facility] , #### [id number], TONY, CMP, FE and TIBC, CBC #### [address] GFR/1.73 sq M.predicted MDRD (S/P/Bld) [Vol rate/Area] 26.711 mL/min/{1.73_m2} Normal [facility] Comment on above: Performed By: #### I FE SERUM, SPE, KAPPA #### [facility] , #### [id number], TONY, CMP, FE and TIBC, CBC #### [address] Globulin (S) [Mass/Vol] 3.0 g/dL Normal [facility] Comment on above: Performed By: #### I FE SERUM, SPE, KAPPA #### [facility] , #### [id number], TONY, CMP, FE and TIBC, CBC #### [address] Glucose [Mass/Vol] 129 mg/dL High 70-100 [facility] Comment on above: Result Comment: [place] Glucose Reference Range is dependent on time and content of last meal. Glucose of more than 200 mg/dL in a nonstressed, ambulatory subject supports the diagnosis of Diabetes Mellitus. ADA recommended reference range Performed By: #### I FE SERUM, SPE, KAPPA #### [facility] , #### [id number], TONY, CMP, FE and TIBC, CBC #### [address] Potassium [Moles/Vol] 3.8 mmol/L Normal 3.5-5.1 [facility] Comment on above: Performed By: #### I FE SERUM, SPE, KAPPA #### [facility] , #### [id number], TONY, CMP, FE and TIBC, CBC #### [address] Protein [Mass/Vol] 7.4 g/dL Normal 6.4-8.9 [facility] Comment on above: Performed By: #### I FE SERUM, SPE, KAPPA #### [facility] , #### [id number], TONY, CMP, FE and TIBC, CBC #### [address] Sodium [Moles/Vol] 140 mmol/L Normal 136-145 [facility] Comment on above: Performed By: #### I FE SERUM, SPE, KAPPA #### [facility] , #### [id number], TONY, CMP, FE and TIBC, CBC #### [address] Urea nitrogen [Mass/Vol] 59 mg/dL High 7-25 [facility] Comment on above: Performed By: #### I FE SERUM, SPE, KAPPA #### [facility] , #### [id number], TONY, CMP, FE and TIBC, CBC #### [address] Creatinine [Mass/volume] in Serum or PlasmaOrdered By: Chivo Keller on 02-22-2024 Creatinine [Mass/Vol] 2.38 mg/dL High 0.70-1.30 [facility] Eosinophils Auto (Bld) [#/Vo l]Ordered By: Chivo Keller on 02-22-2024 Eosinophils (Bld) [#/Vol] 0.3 10*3/uL 0.0-0.45 [facility] Eosinophils/100 WBC Auto (Bl d)Ordered By: Chivo Keller on 02-22-2024 Eosinophils/100 WBC (Bld) 3.8 % . [facility] Erythrocyte distribution wid th Auto (RBC) [Ratio]Ordered By: Chivo Keller on 02-22-2024 Erythrocyte distribution width (RBC) [Ratio] 14.6 % 12.0-14.8 [facility] Ferritinon 02-22-2024 Ferritin [Mass/Vol] 236.8 ng/mL Normal 23.9-336.2 [facility] Comment on above: Performed By: #### I FE SERUM, SPE, KAPPA ####[facility] ,#### [id number], TONY, CMP, FE and TIBC, CBC ####[facility] Ferritin [Mass/volume] in Se rum or PlasmaOrdered By: Chivo Keller on 02-22-2024 Ferritin [Mass/Vol] 236.8 ng/mL 23.9-336.2 [facility] Folate [Mass/volume] in Seru m or PlasmaOrdered By: Chivo Keller on 02-22-2024 Folate [Mass/Vol] 36.0 ng/mL >5.9 [facility] Comment on above: Folate reference ran ge: >5.9 ng/mlThe WHO technical consultation on folate and vitamin [id number] has determined that folate concentrations lessthan 4 ng/ml are considered deficient. Free K+L LT Chains, Qn, Son 02-22-2024 Free [place] Light Chains, S 56.1 mg/L High 3.3-19.4 [facility] Comment on above: Performed By: #### I FE SERUM, SPE, KAPPA ####[facility] ,#### [id number], TONY, CMP, FE and TIBC, CBC ####[facility] Free Lambda Light Chains, S 37.2 mg/L High 5.7-26.3 [facility] Comment on above: Performed By: #### I FE SERUM, SPE, KAPPA ####[facility] ,#### [id number], TONY, CMP, FE and TIBC, CBC ####[place] [address] [address] [place]/Lambda Ratio, S 1.51 Normal 0.26-1.65 [facility] Comment on above: Result Comment: Perf ormed at: CB - [facility] [address] [id number] [employer]: Nathan Munoz PhD, Phone: [phone] PERFORMED BY: [facility] [address] [place] [address] PATHOLOGIST [employer] WORKER TRU UMANZOR M.D. Performed By: #### I FE SERUM, SPE, KAPPA ####[facility] ,#### [id number], TONY, CMP, FE and TIBC, CBC ####[address] Globulin Calc (S) [Mass/Vol] Ordered By: Chivo Keller on 02-22-2024 Globulin (S) [Mass/Vol] 3.0 g/dL [facility] Glucose [Mass/volume] in Ser um or PlasmaOrdered By: Chivo Keller on 02-22-2024 Glucose [Mass/Vol] 129 mg/dL High 70-100 [facility] Comment on above: ADA recommended refe rence rangeRandom Glucose Reference Range is dependent on time and content of last meal. Glucose of more than 200 mg/dL in a nonstressed, ambulatory subject supports the diagnosis of Diabetes Mellitus. Hematocrit Auto (Bld) [Volum e fraction]Ordered By: Chivo Keller on 02-22-2024 Hematocrit (Bld) [Volume fraction] 38.1 % Low 38.8-50.0 [facility] Hemoglobin [Mass/volume] in BloodOrdered By: Chivo Keller on 02-22-2024 Hemoglobin (Bld) [Mass/Vol] 12.9 g/dL Low 13.0-17.0 [facility] IgA [Mass/volume] in Serum o r PlasmaOrdered By: Chivo Keller on 02-22-2024 IgA [Mass/Vol] 179 mg/dL 61-437 [facility] IgG [Mass/volume] in Serum o r PlasmaOrdered By: Chivo Keller on 02-22-2024 IgG [Mass/Vol] 987 mg/dL 603-1613 [facility] IgM [Mass/volume] in Serum o r PlasmaOrdered By: Chivo Keller on 02-22-2024 IgM [Mass/Vol] 143 mg/dL 15-143 [facility] Comment on above: Performed at: [address] Director: Nathan Munoz PhD, Phone: [phone] Immunofixation,Serumon 02-21 Immunofixation, Serum Normal . [facility] Comment on above: Result Comment: No m onoclonality detected. Performed By: #### I FE SERUM, SPE, KAPPA ####[facility] ,#### [id number], TONY, CMP, FE and TIBC, CBC ####[place] [address] [place] [address] [facility] Immunoglobulin A, Serum 179 mg/dL Normal 61-437 [facility] Comment on above: Performed By: #### I FE SERUM, SPE, KAPPA ####[facility] ,#### [id number], TONY, CMP, FE and TIBC, CBC ####[place] [address] [place] [address] [facility] Immunoglobulin G 987 mg/dL Normal 603-1613 [facility] Comment on above: Performed By: #### I FE SERUM, SPE, KAPPA ####[facility] ,#### [id number], TONY, CMP, FE and TIBC, CBC ####[facility] [id number] Immunoglobulin M, Serum 143 mg/dL Normal 15-143 [facility] Comment on above: Result Comment: Perf ormed at: - [facility] [place] [id number] [place] [id number] [employer]: Nathan Munoz PhD, Phone: [phone] Performed By: #### I FE SERUM, SPE, KAPPA ####[facility] ,#### [id number], TONY, CMP, FE and TIBC, CBC ####[facility] S[address] Immunoglobulin light chains. kappa.free [Mass/volume] in SerumOrdered By: Chivo Keller on 02-22-2024 Immunoglobulin light chains.kappa.free (S) [Mass/Vol] 56.1 mg/L High 3.3-19.4 [facility] Immunoglobulin light chains. kappa.free/Immunoglobulin light chains.lambda.free [MassOrdered By: Chivo Keller on 02-22-2024 Immunoglobulin light chains.kappa.free/Immuno globulin light chains.lambda.free (S) [Mass ratio] 1.51 0.26-1.65 [facility] Comment on above: Performed at: - [facility] [address] [id number] Director: Nathan Munoz PhD, Phone: [phone] Immunoglobulin light chains. lambda.free [Mass/volume] in Serum or PlasmaOrdered By: Chivo Keller on 02-22-2024 Immunoglobulin light chains.lambda.free [Mass/Vol] 37.2 mg/L High 5.7-26.3 [facility] Iron [Mass/volume] in Serum or PlasmaOrdered By: Chivo Keller on 02-22-2024 Iron [Mass/Vol] 85 ug/dL 50-212 [facility] Iron and TIBC Profileon 05 % Iron Saturation 30.2 % Normal 20-50 [facility] Comment on above: Performed By: #### I FE SERUM, SPE, KAPPA ####[facility] ,#### [id number], TONY, CMP, FE and TIBC, CBC ####[place] [address] [place] [id number] [facility] Iron [Mass/Vol] 85 ug/dL Normal 50-212 [facility] Comment on above: Performed By: #### I FE SERUM, SPE, KAPPA ####[facility] ,#### [id number], TONY, CMP, FE and TIBC, CBC ####[address] [address] [facility] Total Iron Binding Capacity 281 ug/dL Normal 255-450 [facility] Comment on above: Performed By: #### I FE SERUM, SPE, KAPPA ####[facility] ,#### [id number], TONY, CMP, FE and TIBC, CBC ####[address] Transferrin [Mass/Vol] 201 mg/dL Low 203-[address] [facility] Comment on above: Performed By: #### I FE SERUM, SPE, KAPPA ####[facility] ,#### [id number], TONY, CMP, FE and TIBC, CBC ####[place] [id number] [facility] Iron binding capacity [Mass/ volume] in Serum or PlasmaOrdered By: Chivo Keller on 02-22-2024 Iron binding capacity [Mass/Vol] 281 ug/dL 255-450 [facility] Iron saturation [Mass Fracti on] in Serum or PlasmaOrdered By: Chivo Keller on 02-22-2024 Iron saturation [Mass fraction] 30.2 % 20-50 [facility] Leukocytes [#/volume] correc bonnie for nucleated erythrocytes in Blood by Automated counOrdered By: Chivo Keller on 02-22-2024 WBC corrected for nucl RBC Auto (Bld) [#/Vol] 7.5 10*3/uL 4.1-10.5 [facility] Lymphocytes Auto (Bld) [#/Vo l]Ordered By: Chivo Keller on 02-22-2024 Lymphocytes (Bld) [#/Vol] 1.4 10*3/uL 1.00-4.8 [facility] Lymphocytes/100 WBC Auto (Bl d)Ordered By: Chivo Keller on 02-22-2024 Lymphocytes/100 WBC (Bld) 19.1 % . [facility] MCH Auto (RBC) [Entitic mass ]Ordered By: Chivo Keller on 02-22-2024 MCH (RBC) [Entitic mass] 31.6 pg 27.5-35.2 [facility] MCHC Auto (RBC) [Mass/Vol]Or dered By: Chivo Keller on 02-22-2024 MCHC (RBC) [Mass/Vol] 33.9 g/dL 32.5-35.6 [facility] MCV Auto (RBC) [Entitic vol] Ordered By: Chivo Keller on 02-22-2024 MCV (RBC) [Entitic vol] 93.2 fL 83.5-101 F [facility] Monocytes Auto (Bld) [#/Vol] Ordered By: Chivo Keller on 02-22-2024 Monocytes (Bld) [#/Vol] 0.8 10*3/uL 0.0-0.8 [facility] Monocytes/100 WBC Auto (Bld) Ordered By: Chivo Keller on 02-22-2024 Monocytes/100 WBC (Bld) 10.0 % . [facility] Neutrophils Auto (Bld) [#/Vo l]Ordered By: Chivo Keller on 02-22-2024 Neutrophils (Bld) [#/Vol] 5.0 10*3/uL 1.8-7.7 [facility] Neutrophils/100 WBC Auto (Bl d)Ordered By: Chivo [place] on 02-22-2024 Neutrophils/100 WBC (Bld) 66.6 % . [facility] No Panel InformationOrdered By: Chivo Keller on 02-22-2024 Protein Electrophoresis M-Tobi Not observed g/dL Not Observed [facility] Protein Electrophoresis Note See comment . [facility] Comment on above: Protein electrophore sis scan will follow via computer,mail, or electrical service technician delivery.Performed at: [facility] [id number] [id number] Director: Nathan Munoz PhD, Phone: [phone] Serum Immunofixation See comment . [facility] Comment on above: No monoclonality det ected. Estimated GFR (CKD-EPI) 26.711 mL/Min [facility] Creatinine Clearance (Chem 29.06 [facility] Nucleated erythrocytes [Pres ence] in Blood by Automated countOrdered By: Chivo Keller on 02-22-2024 Nucleated RBC Auto Ql (Bld) 0.0 /100{WBC} 0-0.5 [facility] Platelet mean volume Auto (B ld) [Entitic vol]Ordered By: Chivo Keller on 02-22-2024 Platelet mean volume (Bld) [Entitic vol] 7.6 fL 6.6-10.1 [facility] Platelets Auto (Bld) [#/Vol] Ordered By: Chivo Keller on 02-22-2024 Platelets (Bld) [#/Vol] 196 10*3/uL 150-450 [facility] Potassium [Moles/volume] in Serum or PlasmaOrdered By: Chivo Keller on 02-22-2024 Potassium [Moles/Vol] 3.8 mmol/L 3.5-5.1 [facility] Protein Electrophoresis, Ser umon 02-22-2024 Albumin [Mass/Vol] 3.9 g/dL Normal 2.9-4.4 [facility] Comment on above: Performed By: #### I FE SERUM, SPE, KAPPA ####[facility] ,#### [id number], TONY, CMP, FE and TIBC, CBC ####[facility] [address] [place] [id number] [facility] Albumin/Globulin [Mass ratio] 1.3 {ratio} Normal 0.7-1.7 [facility] Comment on above: Performed By: #### I FE SERUM, SPE, KAPPA ####[facility] ,#### [id number], TONY, CMP, FE and TIBC, CBC ####[address] Ejeie-0-Jiodfzzq 0.2 g/dL Normal 0.0-0.4 [facility] Comment on above: Performed By: #### I FE SERUM, SPE, KAPPA ####[facility] ,#### [id number], TONY, CMP, FE and TIBC, CBC ####[address] Jnlxn-9-Igovebhy 0.8 g/dL Normal 0.4-1.0 [facility] Comment on above: Performed By: #### I FE SERUM, SPE, KAPPA ####[facility] ,#### [id number], TONY, CMP, FE and TIBC, CBC ####[address] Beta Globulin 0.9 g/dL Normal 0.7-1.3 [facility] Comment on above: Performed By: #### I FE SERUM, SPE, KAPPA ####[facility] ,#### [id number], TONY, CMP, FE and TIBC, CBC ####[address] Gamma Globulin 1.0 g/dL Normal 0.4-1.8 [facility] Comment on above: Performed By: #### I FE SERUM, SPE, KAPPA ####[facility] ,#### [id number], TONY, CMP, FE and TIBC, CBC ####[place] [address] [place] Globulin (S) [Mass/Vol] 2.9 g/dL Normal 2.2-3.9 [facility] Comment on above: Performed By: #### I FE SERUM, SPE, KAPPA ####[facility] ,#### [id number], TONY, CMP, FE and TIBC, CBC ####[address] M-Tobi Not Observed Normal Not Observed [facility] Comment on above: Performed By: #### I FE SERUM, SPE, KAPPA ####[facility] ,#### [id number], TONY, CMP, FE and TIBC, CBC ####[address] Protein [Mass/Vol] 6.8 g/dL Normal 6.0-8.5 [facility] Comment on above: Performed By: #### I FE SERUM, SPE, KAPPA ####[facility] ,#### [id number], TONY, CMP, FE and TIBC, CBC ####[address] SPE-Note Normal . [facility] Comment on above: Result Comment: Prot ein electrophoresis scan will follow via computer, mail, or electrical service technician delivery. Performed at: - [place] [id number] [employer]: Nathan Munoz PhD, Phone: [phone] Performed By: #### I FE SERUM, SPE, KAPPA ####[facility] ,#### [id number], TONY, CMP, FE and TIBC, CBC ####[address] Protein [Mass/volume] in Ser um or PlasmaOrdered By: Chivo Keller on 02-22-2024 Protein [Mass/Vol] 6.8 g/dL 6.0-8.5 [facility] Protein [Mass/Vol] 7.4 g/dL 6.4-8.9 [facility] RBC Auto (Bld) [#/Vol]Ordere d By: Chivo Keller on 02-22-2024 RBC (Bld) [#/Vol] 4.09 10*6/uL 3.90-5.60 [facility] Serum globulin measurement ( mass/volume)Ordered By: Chivo Keller on 02-22-2024 Globulin (S) [Mass/Vol] 2.9 g/dL 2.2-3.9 [facility] Serum or plasma albumin/glob ulin mass ratioOrdered By: Chivo Keller on 02-22-2024 Albumin/Globulin [Mass ratio] 1.3 {ratio} 0.7-1.7 [facility] Albumin/Globulin [Mass ratio] 1.5 {ratio} [facility] Serum or plasma alpha 1 glob ulin measurement by electrophoresis (mass/volume)Ordered By: Chivo Keller on 02-22-2024 Alpha 1 globulin Elph [Mass/Vol] 0.2 g/dL 0.0-0.4 [facility] Serum or plasma alpha 2 glob ulin measurement by electrophoresis (mass/volume)Ordered By: Chivo Keller on 02-22-2024 Alpha 2 globulin Elph [Mass/Vol] 0.8 g/dL 0.4-1.0 [facility] Serum or plasma anion gap de terminationOrdered By: Chivo Keller on 02-22-2024 Anion gap [Moles/Vol] 10.6 mmol/L 6.0-15.0 [facility] Serum or plasma beta globuli n measurement by electrophoresis (mass/volume)Ordered By: Chivo Keller on 02-22-2024 Beta globulin Elph [Mass/Vol] 0.9 g/dL 0.7-1.3 [facility] Serum or plasma gamma globul in measurement by electrophoresis (mass/volume)Ordered By: Chivo Keller on 02-22-2024 Gamma globulin Elph [Mass/Vol] 1.0 g/dL 0.4-1.8 [facility] Sodium [Moles/volume] in Ser um or PlasmaOrdered By: Chivo Keller on 02-22-2024 Sodium [Moles/Vol] 140 mmol/L 136-145 [facility] Transferrin [Mass/volume] in Serum or PlasmaOrdered By: Chivo Keller on 02-22-2024 Transferrin [Mass/Vol] 201 mg/dL Low 203-362 [facility] Urea nitrogen [Mass/volume] in Serum or PlasmaOrdered By: Chivo Keller on 02-22-2024 Urea nitrogen [Mass/Vol] 59 mg/dL High 7-25 [facility] Vit. B12/Folate Profileon Cobalamin (Vitamin B12) [Mass/Vol] 649 pg/mL Normal 180-914 [facility] Comment on above: Performed By: #### I FE SERUM, SPE, KAPPA ####[facility] ,#### [id number], TONY, CMP, FE and TIBC, CBC ####[place] [address] Folate 36.0 ng/mL Normal >5.9 [facility] Comment on above: Result Comment: Echo te reference range: >5.9 ng/ml The WHO technical consultation on folate and vitamin b12 deficiencies has determined that folate concentrations less than 4 ng/ml are considered deficient. PERFORMED BY: [facility] [address] [place] [address] PATHOLOGIST [employer] TRU UMANZOR M.D. Performed By: #### I FE SERUM, SPE, KAPPA ####[facility] ,#### [id number], TONY, CMP, FE and TIBC, CBC ####[place] [address] Vitamin B12 ser/plasOrdered By: Chivo Keller on 02-22-2024 Cobalamin (Vitamin B12) [Mass/Vol] 649 pg/mL 180-914 [facility] WBC Auto (Bld) [#/Vol]Ordere d By: Chivo Keller on 02-22-2024 WBC (Bld) [#/Vol] 7.5 10*3/uL 4.1-10.5 [facility] Automated urine specific gra vity by refractometryon 02-01-2024 Specific gravity Refractometry automated (U) [Rel density] 1.010 1.005-1.025 [facility] Bilirubin Auto test strip (U ) [Mass/Vol]on 02-01-2024 Bilirubin (U) [Mass/Vol] Negative NEGATIVE [facility] Color Auto (U)on 02-01-2024 Color (U) LT. YELLOW YELLOW [facility] Erythrocyte distribution wid th Auto (RBC) [Ratio]on 02-01-2024 Erythrocyte distribution width (RBC) [Ratio] 13.5 % 11.0-15.0 [facility] Estimated glomerular filtrat ion rate (GFR) non- Americanon 02-01-2024 GFR/1.73 sq M.predicted among non-blacks MDRD (S/P/Bld) [Vol rate/Area] 23 mL/min/{1.73_m2} Low >=60 [facility] Glucose [Mass/volume] in Uri ne by Test stripon 02-01-2024 Glucose Test strip (U) [Mass/Vol] Negative NEGATIVE [facility] Hematocrit Auto (Bld) [Volum e fraction]on 02-01-2024 Hematocrit (Bld) [Volume fraction] 37.0 % Low 42.0-54.0 [facility] Hemoglobin [Mass/volume] in Bloodon 02-01-2024 Hemoglobin (Bld) [Mass/Vol] 11.9 g/dL Low 14.0-18.0 [facility] Ketones Auto test strip (U) [Mass/Vol]on 02-01-2024 Ketones (U) [Mass/Vol] Negative NEGATIVE [facility] Laboratory - Chemistry and C hemistry - challengeon 02-01-2024 Calcium [Mass/Vol] 9.1 mg/dL 8.5-10.1 [facility] Chloride [Moles/Vol] 101 mmol/L 98-107 [facility] CO2 [Moles/Vol] 31.5 mmol/L 21.0-32.0 [facility] Creatinine [Mass/Vol] 2.66 mg/dL High 0.70-1.30 [facility] Free T4 [Mass/Vol] 1.03 ng/dL 0.76-1.46 [facility] GFR/1.73 sq M.predicted MDRD (S/P/Bld) [Vol rate/Area] 28 mL/min/{1.73_m2} Low >=60 [facility] Glucose [Mass/Vol] 128 mg/dL High 74-106 [facility] Magnesium [Mass/Vol] 2.4 mg/dL 1.8-2.4 [facility] Potassium [Moles/Vol] 3.8 mmol/L 3.5-5.1 [facility] Sodium [Moles/Vol] 141 mmol/L 136-145 [facility] TSH Qn 8.924 m[IU]/L High 0.358-3.740 [facility] Urea nitrogen [Mass/Vol] 55.0 mg/dL High 7.0-18.0 [facility] Urea nitrogen/Creatinine [Mass ratio] 20.7 mg/mg [facility] Laboratory - Urinalysison Protein (U) [Mass/Vol] 25.1 mg/dL High <=11.9 [facility] Leukocytes [#/volume] correc bonnie for nucleated erythrocytes in Blood by Automated counon 02-01-2024 WBC corrected for nucl RBC Auto (Bld) [#/Vol] 8.0 10 3/uL 4.0-11.0 [facility] MCH Auto (RBC) [Entitic mass ]on 02-01-2024 MCH (RBC) [Entitic mass] 30.9 pg 25.9-34.0 [facility] MCHC Auto (RBC) [Mass/Vol]on 02-01-2024 MCHC (RBC) [Mass/Vol] 32.2 g/dL 29.9-35.2 [facility] MCV Auto (RBC) [Entitic vol] on 02-01-2024 MCV (RBC) [Entitic vol] 96.1 fL High 80.0-94.0 F [facility] No Panel Informationon 01-31 25-Hydroxy Vitamin D Total 94.2 ng/mL [facility] Comment on above: <20 ng/mL Vit D defi cient20-<30 ng/mL Vit D gxqrijzbgppl77-656 ng/mL Vit D sufficient>100 ng/mL Potential Toxicity Parathyroid Hormone (Intact) 52 pg/mL 15-65 [facility] Comment on above: Performed at: [employer] [id number] [place], [place] [id number] Director: Nathan Munoz PhD, Phone: [phone] Phosphorus Level 4.1 mg/dL 2.6-4.7 [facility] Prostate Specific Antigen Screen 0.91 ng/mL <=4.00 [facility] Total Triiodothyronine 73 ng/dL 71-180 [facility] Comment on above: Performed at: [employer] [id number] [place], [place] [id number] Director: Nathan Munoz PhD, Phone: [phone] Urine Random Creatinine 77.24 mg/dL 20.00-300.0 0 [facility] Platelet mean volume Auto (B ld) [Entitic vol]on 02-01-2024 Platelet mean volume (Bld) [Entitic vol] 9.5 fL 9.5-13.5 [facility] Platelets Auto (Bld) [#/Vol] on 02-01-2024 Platelets (Bld) [#/Vol] 199 10 3/uL 150-450 [facility] Protein Auto test strip (U) [Mass/Vol]on 02-01-2024 Protein (U) [Mass/Vol] TRACE mg/dL NEG/TRACE F [facility] RBC Auto (Bld) [#/Vol]on RBC (Bld) [#/Vol] 3.85 10 6/uL Low 4.70-6.10 [facility] Serum or plasma anion gap de terminationon 02-01-2024 Anion gap [Moles/Vol] 12.3 mmol/L [facility] Specific gravity Auto test s trip (U) [Rel density]on 02-01-2024 Specific gravity (U) [Rel density] CLEAR CLEAR [facility] Urine hemoglobin detection b y automated test stripon 02-01-2024 Hemoglobin Auto test strip Ql (U) Negative NEGATIVE [facility] Urine nitrite detection by a utomated test stripon 02-01-2024 Nitrite Auto test strip Ql (U) SMALL Abnormal NEGATIVE [facility] Nitrite Auto test strip Ql (U) Negative NEGATIVE [facility] Urine protein/creatinine rat ioon 02-01-2024 Protein/Creatinine (U) [Ratio] 0.32 [facility] Urobilinogen Auto test strip (U) [Mass/Vol]on 02-01-2024 Urobilinogen Qn (U) 0.2 {Jagruti'U}/dL 0.2-1.0 [facility] pH Auto test strip (U)on pH (U) 6.0 [pH] 5.0-9.0 [facility] Cholesterol in LDL Calc [Mas s/Vol]on 12-19-2023 Cholesterol in LDL [Mass/Vol] 81.8 mg/dL [facility] Comment on above: <100 mg/dl [id number] 0-129 mg/dl NEAR OR ABOVE [id number] mg/dl BORDERLINE [id number] mg/dl HIGH>190 mg/dl VERY HIGH Cholesterol in VLDL Calc [Ma ss/Vol]on 12-19-2023 Cholesterol in VLDL [Mass/Vol] 23.2 mg/dL [facility] Glucose mean value [Mass/vol ume] in Blood Estimated from glycated hemoglobinon 12-19-2023 Average glucose Estimated from glycated hemoglobin (Bld) [Mass/Vol] 137 mg/dL [facility] Laboratory - Chemistry and C hemistry - challengeon 12-19-2023 Cholesterol [Mass/Vol] 148 mg/dL <=200 Fi [facility] Cholesterol in HDL [Mass/Vol] 43 mg/dL 40-60 [facility] Comment on above: > or =60 mg/dl - LOW CARDIOVASCULAR RISK<40 mg/dl - HIGH CARDIOVASCULAR RISK Free T4 [Mass/Vol] 1.04 ng/dL 0.76-1.46 [facility] Triglyceride [Mass/Vol] 116 mg/dL <=150 F [facility] TSH Qn 11.812 m[IU]/L 0.358-3.740 [facility] Laboratory - Hematology and Cell countson 12-19-2023 HbA1c (Bld) [Mass fraction] 6.4 % 4.5-6.2 [facility] Comment on above: ADA RECOMMENDED LIMI T 4.0 - 6.0ADA THERAPEUTIC TARGET < 7.0ACTION SUGGESTED> 7.0 Serum or plasma total choles terol/high density lipoprotein (HDL) cholesterol mass ernesto 12-19-2023 Cholesterol.total/Choles terol in HDL [Mass ratio] 3.4 {ratio} [facility] Comment on above: 3.3 - 4.4 LOW RISK4. 4 - 7.1 AVERAGE RISK7.1 - 11.0 MODERATE RISK>11.0 HIGH RISK Office Visiton 09-22-2023 Follow-up visit [id number] Nas Ren 1940 M Date Provider Department Center 09/22/2023 [facility] Family History Problem Relation Age of Onset Diabetes Mother Heart disease Father Glaucoma Brother Diabetes Maternal Grandmother Clotting disorder Other Family Status - Relation Status Age at Mother Father Brother Maternal Grandmother Other Level of Service:56918 MI OFFICE/OUTPATIENT ESTABLISHED LOW MDM 20-29 MIN Normal [facility] Alanine aminotransferase [En zymatic activity/volume] in Serum or PlasmaOrdered By: Leigha Nelson on 08-30-2023 ALT [Catalytic activity/Vol] 20 U/L 7-52 [facility] Albumin [Mass/volume] in Ser um or Plasma by Bromocresol green (BCG) dye binding methoOrdered By: Leigha Nelson on 08-30-2023 Albumin BCG dye [Mass/Vol] 4.4 g/dL 3.5-5.7 [facility] Alkaline phosphatase [Enzyma tic activity/volume] in Serum or PlasmaOrdered By: Leigha Nelson on 08-30-2023 ALP [Catalytic activity/Vol] 114 U/L 34-104 [facility] Aspartate aminotransferase [ Enzymatic activity/volume] in Serum or PlasmaOrdered By: Leigha Nelson on 08-30-2023 AST [Catalytic activity/Vol] 23 U/L 13-39 [facility] Basophils Auto (Bld) [#/Vol] Ordered By: Leigha Nelson on 08-30-2023 Basophils (Bld) [#/Vol] 0.0 10*3/uL 0.0-0.2 [facility] Basophils/100 WBC Auto (Bld) Ordered By: Leigha Nelson on 08-30-2023 Basophils/100 WBC (Bld) 0.5 % . F [facility] Bilirubin.total [Mass/volume ] in Serum or PlasmaOrdered By: Leigha Nelson on 08-30-2023 Bilirubin [Mass/Vol] 0.8 mg/dL 0.3-1.[address] [facility] [address] abdomen pelvis wo conon 1 10-30-2022 CT abdomen pelvis wo con [facility] [address] [place] [address] CT Scan Report Signed Patient: Nas Ren MR#: [id number] [birth year] : 1940 Acct:[id number] Age/Sex: 83 / M ADM Date: 08/30/23 Loc: Room: [facility] Attending Dr: Chivo Keller II DO Copies to: EDWARD Luke II DO Ordering Provider: Leigha Nelson APRN Date of Service: 08/30/23 CT/CT chest wo con: surveillance ([id number]) CT/CT abdomen pelvis wo con: surveillance CT [...] Scott Jr., D.O.08/30/2023 1:10 PM Dictation Location: [place] [address] Transcribed By: [facility] 08/30/23 1310 Dictated By: Sotero Scott Jr, DO 08/30/23 1304 Signed By: 08/30/23 1310 Normal [facility] Calcium [Mass/volume] in Ser um or PlasmaOrdered By: Leigha Nelson on 08-30-2023 Calcium [Mass/Vol] 9.7 mg/dL 8.6-10.3 [facility] Carbon dioxide, total [Moles /volume] in Serum or PlasmaOrdered By: Leigha Nelson on 08-30-2023 CO2 [Moles/Vol] 35.5 mmol/L 21.0-31.0 [facility] Chloride [Moles/volume] in S alayna or PlasmaOrdered By: Leigha Nelson on 08-30-2023 Chloride [Moles/Vol] 102 mmol/L 98-107 [facility] Complete Blood Count Auto Di ffon 08-30-2023 Basophils (Bld) [#/Vol] 0.0 10*3/uL Normal 0.0-0.2 [facility] Comment on above: Result Comment: PERF ORMED BY: [facility] [address] [place] [address] PATHOLOGIST [employer] TRU UMANZOR M.D. Performed By: #### F ER, CEA, CBC, FE and TIBC, CMP #### [address] Basophils/100 WBC (Bld) 0.5 % Normal . [facility] Comment on above: Performed By: #### F ER, CEA, CBC, FE and TIBC, CMP #### [address] Eosinophils (Bld) [#/Vol] 0.3 10*3/uL Normal 0.0-0.45 [facility] Comment on above: Performed By: #### F ER, CEA, CBC, FE and TIBC, CMP #### [address] Eosinophils/100 WBC (Bld) 3.8 % Normal . [facility] [facility] Comment on above: Performed By: #### F ER, CEA, CBC, FE and TIBC, CMP #### [address] Erythrocyte distribution width (RBC) [Ratio] 14.8 % Normal 12.0-14.8 [facility] Comment on above: Performed By: #### F ER, CEA, CBC, FE and TIBC, CMP #### [address] Hematocrit (Bld) [Volume fraction] 36.8 % Low 38.8-50.0 [facility] Comment on above: Performed By: #### F ER, CEA, CBC, FE and TIBC, CMP #### [address] Hemoglobin (Bld) [Mass/Vol] 12.3 g/dL Low 13.0-17.0 [facility] Comment on above: Performed By: #### F ER, CEA, CBC, FE and TIBC, CMP #### [address] Lymphocytes (Bld) [#/Vol] 1.5 10*3/uL Normal 1.00-4.8 [facility] Comment on above: Performed By: #### F ER, CEA, CBC, FE and TIBC, CMP #### [address] Lymphocytes/100 WBC (Bld) 21.9 % Normal . [facility] Comment on above: Performed By: #### F ER, CEA, CBC, FE and TIBC, CMP #### [address] MCH (RBC) [Entitic mass] 30.9 pg Normal 27.5-35.2 [facility] Comment on above: Performed By: #### F ER, CEA, CBC, FE and TIBC, CMP #### [address] MCV (RBC) [Entitic vol] 92.8 fL Normal 83.5-101 [facility] Comment on above: Performed By: #### F ER, CEA, CBC, FE and TIBC, CMP #### [address] Mean Corpuscular HGB Conc 33.3 g/dL Normal 32.5-35.6 [facility] Comment on above: Performed By: #### F ER, CEA, CBC, FE and TIBC, CMP #### [address] Monocytes (Bld) [#/Vol] 0.5 10*3/uL Normal 0.0-0.8 [facility] Comment on above: Performed By: #### F ER, CEA, CBC, FE and TIBC, CMP #### [address] Monocytes/100 WBC (Bld) 7.9 % Normal . [facility] Comment on above: Performed By: #### F ER, CEA, CBC, FE and TIBC, CMP #### [address] Neutrophils (Bld) [#/Vol] 4.6 10*3/uL Normal 1.8-7.7 [facility] Comment on above: Performed By: #### F ER, CEA, CBC, FE and TIBC, CMP #### [address] Neutrophils/100 WBC (Bld) 65.9 % Normal . [facility] Comment on above: Performed By: #### F ER, CEA, CBC, FE and TIBC, CMP #### [address] NRBC% 0.1 /100{WBC} Normal 0-0.5 [facility] Comment on above: Performed By: #### F ER, CEA, CBC, FE and TIBC, CMP #### [address] Platelet mean volume (Bld) [Entitic vol] 7.6 fL Normal 6.6-10.1 [facility] Comment on above: Performed By: #### F ER, CEA, CBC, FE and TIBC, CMP #### [address] Platelets (Bld) [#/Vol] 206 10*3/uL Normal 150-450 [facility] Comment on above: Performed By: #### F ER, CEA, CBC, FE and TIBC, CMP #### [address] RBC (Bld) [#/Vol] 3.96 10*6/uL Normal 3.90-5.60 The [facility] Comment on above: Performed By: #### F ER, CEA, CBC, FE and TIBC, CMP #### [address] WBC (Bld) [#/Vol] 7.0 10*3/uL Normal 4.1-10.5 The [facility] Comment on above: Performed By: #### F ER, CEA, CBC, FE and TIBC, CMP #### [address] Comprehensive Metabolic Pane [facility] 08-30-2023 Albumin [Mass/Vol] 4.4 g/dL Normal 3.5-5.7 [facility] Comment on above: Performed By: #### F ER, CEA, CBC, FE and TIBC, CMP #### [address] Albumin/Globulin [Mass ratio] 1.8 {ratio} Normal [facility] Comment on above: Performed By: #### F ER, CEA, CBC, FE and TIBC, CMP #### [address] ALP [Catalytic activity/Vol] 114 U/L High 34-104 [facility] Comment on above: Performed By: #### F ER, CEA, CBC, FE and TIBC, CMP #### [address] ALT [Catalytic activity/Vol] 20 U/L Normal 7-52 [facility] Comment on above: Performed By: #### F ER, CEA, CBC, FE and TIBC, CMP #### [address] Anion gap [Moles/Vol] 10.0 mmol/L Normal 6.0-15.[address] [facility] Comment on above: Performed By: #### F ER, CEA, CBC, FE and TIBC, CMP #### [address] AST [Catalytic activity/Vol] 23 U/L Normal 13-39 [facility] Comment on above: Performed By: #### F ER, CEA, CBC, FE and TIBC, CMP #### [address] Bilirubin [Mass/Vol] 0.8 mg/dL Normal 0.3-1.0 [facility] Comment on above: Performed By: #### F ER, CEA, CBC, FE and TIBC, CMP #### [address] Calcium [Mass/Vol] 9.7 mg/dL Normal 8.6-10.3 The [facility] Comment on above: Performed By: #### F ER, CEA, CBC, FE and TIBC, CMP #### [address] [place] [address] [place] Chloride [Moles/Vol] 102 mmol/L Normal 98-107 [facility] Comment on above: Performed By: #### F ER, CEA, CBC, FE and TIBC, CMP #### [facility] [address] CO2 [Moles/Vol] 35.5 mmol/L High 21.0-31.0 The [facility] Comment on above: Performed By: #### F ER, CEA, CBC, FE and TIBC, CMP #### [facility] [address] Creatinine [Mass/Vol] 2.29 mg/dL High 0.70-1.30 [facility] Comment on above: Performed By: #### F ER, CEA, CBC, FE and TIBC, CMP #### [address] Creatinine Clr Calc Pharmacy 30.81 Normal [facility] Comment on above: Performed By: #### F ER, CEA, CBC, FE and TIBC, CMP #### [address] GFR/1.73 sq M.predicted MDRD (S/P/Bld) [Vol rate/Area] 27.976 mL/min/{1.73_m2} Normal [facility] Comment on above: Performed By: #### F ER, CEA, CBC, FE and TIBC, CMP #### [address] Globulin (S) [Mass/Vol] 2.5 g/dL Normal [facility] Comment on above: Performed By: #### F ER, CEA, CBC, FE and TIBC, CMP #### [address] Glucose [Mass/Vol] 111 mg/dL High 70-100 The [facility] Comment on above: Result Comment: [place] Glucose Reference Range is dependent on time and content of last meal. Glucose of more than 200 mg/dL in a nonstressed, ambulatory subject supports the diagnosis of Diabetes Mellitus. ADA recommended reference range Performed By: #### F ER, CEA, CBC, FE and TIBC, CMP #### [address] Potassium [Moles/Vol] 4.5 mmol/L Normal 3.5-5.1 [facility] Comment on above: Performed By: #### F ER, CEA, CBC, FE and TIBC, CMP #### [address] Protein [Mass/Vol] 6.9 g/dL Normal 6.4-8.9 The [facility] Comment on above: Performed By: #### F ER, CEA, CBC, FE and TIBC, CMP #### [address] Sodium [Moles/Vol] 143 mmol/L Normal 136-145 The [facility] Comment on above: Performed By: #### F ER, CEA, CBC, FE and TIBC, CMP #### [address] Urea nitrogen [Mass/Vol] 51 mg/dL High 7-25 [facility] Comment on above: Performed By: #### F ER, CEA, CBC, FE and TIBC, CMP #### [address] Creatinine [Mass/volume] in Serum or PlasmaOrdered By: Leigha Omar on 08-30-2023 Creatinine [Mass/Vol] 2.29 mg/dL 0.70-1.30 [facility] Eosinophils Auto (Bld) [#/Vo l]Ordered By: Leigha Omar on 08-30-2023 Eosinophils (Bld) [#/Vol] 0.3 10*3/uL 0.0-0.45 [facility] Eosinophils/100 WBC Auto (Bl d)Ordered By: Leigha Omar on 08-30-2023 Eosinophils/100 WBC (Bld) 3.8 % . [facility] Erythrocyte distribution wid th Auto (RBC) [Ratio]Ordered By: Leigha Omar on 08-30-2023 Erythrocyte distribution width (RBC) [Ratio] 14.8 % 12.0-14.8 [facility] Ferritinon 08-30-2023 Ferritin [Mass/Vol] 239.3 ng/mL Normal 23.9-336.2 [facility] Comment on above: Result Comment: PERF ORMED BY: [facility] [address] [place] [address] PATHOLOGIST [employer] TRU UMANZOR M.D. Performed By: #### F ER, CEA, CBC, FE and TIBC, CMP #### [facility] [address] Ferritin [Mass/volume] in Se rum or PlasmaOrdered By: Leigha Nelson on 08-30-2023 Ferritin [Mass/Vol] 239.3 ng/mL 23.9-336.2 [facility] Globulin Calc (S) [Mass/Vol] Ordered By: Leigha Nelson on 08-30-2023 Globulin (S) [Mass/Vol] 2.5 g/dL [facility] Glucose [Mass/volume] in Ser um or PlasmaOrdered By: Leigha Nelson on 08-30-2023 Glucose [Mass/Vol] 111 mg/dL 70-100 [facility] Comment on above: ADA recommended refe rence rangeRandom Glucose Reference Range is dependent on time and content of last meal. Glucose of more than 200 mg/dL in a nonstressed, ambulatory subject supports the diagnosis of Diabetes Mellitus. Hematocrit Auto (Bld) [Volum e fraction]Ordered By: Leigha Nelson on 08-30-2023 Hematocrit (Bld) [Volume fraction] 36.8 % 38.8-50.0 [facility] Hemoglobin [Mass/volume] in BloodOrdered By: Leigha Nelson on 08-30-2023 Hemoglobin (Bld) [Mass/Vol] 12.3 g/dL 13.0-17.0 [facility] Iron [Mass/volume] in Serum or PlasmaOrdered By: Leigha Nelson on 08-30-2023 Iron [Mass/Vol] 84 ug/dL 50-212 [facility] Iron and TIBC Profileon 08-16 % Iron Saturation 29.0 % Normal 20-50 [facility] Comment on above: Performed By: #### F ER, CEA, CBC, FE and TIBC, CMP #### [facility] [address] Iron [Mass/Vol] 84 ug/dL Normal 50-212 [facility] Comment on above: Performed By: #### F ER, CEA, CBC, FE and TIBC, CMP #### [facility] [address] Total Iron Binding Capacity 290 ug/dL Normal 255-450 [facility] Comment on above: Performed By: #### F ER, CEA, CBC, FE and TIBC, CMP #### [facility] [address] Transferrin [Mass/Vol] 207 mg/dL Normal 203-[address] [facility] Comment on above: Performed By: #### F ER, CEA, CBC, FE and TIBC, CMP #### [facility] [address] Iron binding capacity [Mass/ volume] in Serum or PlasmaOrdered By: Leigha Nelson on 08-30-2023 Iron binding capacity [Mass/Vol] 290 ug/dL 255-450 [facility] Iron saturation [Mass Fracti on] in Serum or PlasmaOrdered By: Leigha Nelson on 08-30-2023 Iron saturation [Mass fraction] 29.0 % 20-50 [facility] Leukocytes [#/volume] correc bonnie for nucleated erythrocytes in Blood by Automated counOrdered By: Leigha Nelson on 08-30-2023 WBC corrected for nucl RBC Auto (Bld) [#/Vol] 7.0 10*3/uL 4.1-10.5 [facility] Lymphocytes Auto (Bld) [#/Vo l]Ordered By: Leigha Nelson on 08-30-2023 Lymphocytes (Bld) [#/Vol] 1.5 10*3/uL 1.00-4.8 [facility] Lymphocytes/100 WBC Auto (Bl d)Ordered By: Leigha Nelson on 08-30-2023 Lymphocytes/100 WBC (Bld) 21.9 % . [facility] MCH Auto (RBC) [Entitic mass ]Ordered By: Leigha Nelson on 08-30-2023 MCH (RBC) [Entitic mass] 30.9 pg 27.5-35.2 [facility] MCHC Auto (RBC) [Mass/Vol]Or dered By: Leigha Nelson on 08-30-2023 MCHC (RBC) [Mass/Vol] 33.3 g/dL 32.5-35.6 [facility] MCV Auto (RBC) [Entitic vol] Ordered By: Leigha Nelson on 08-30-2023 MCV (RBC) [Entitic vol] 92.8 fL 83.5-101 F [facility] Monocytes Auto (Bld) [#/Vol] Ordered By: Leigha Nelson on 08-30-2023 Monocytes (Bld) [#/Vol] 0.5 10*3/uL 0.0-0.8 [facility] Monocytes/100 WBC Auto (Bld) Ordered By: Leigha Nelson on 08-30-2023 Monocytes/100 WBC (Bld) 7.9 % . F [facility] Neutrophils Auto (Bld) [#/Vo l]Ordered By: Leigha Nelson on 08-30-2023 Neutrophils (Bld) [#/Vol] 4.6 10*3/uL 1.8-7.7 [facility] Neutrophils/100 WBC Auto (Bl d)Ordered By: Leigha Nelson on 08-30-2023 Neutrophils/100 WBC (Bld) 65.9 % . [facility] No Panel InformationOrdered By: Leigha Nelson on 08-30-2023 Estimated GFR (CKD-EPI) 27.976 mL/Min [facility] Creatinine Clearance (Chem 30.81 [facility] Nucleated erythrocytes [Pres ence] in Blood by Automated countOrdered By: Leigha Nelson on 08-30-2023 Nucleated RBC Auto Ql (Bld) 0.1 /100{WBC} 0-0.5 [facility] Platelet mean volume Auto (B ld) [Entitic vol]Ordered By: Leigha Nelson on 08-30-2023 Platelet mean volume (Bld) [Entitic vol] 7.6 fL 6.6-10.1 [facility] Platelets Auto (Bld) [#/Vol] Ordered By: Leigha Nelson on 08-30-2023 Platelets (Bld) [#/Vol] 206 10*3/uL 150-450 [facility] Potassium [Moles/volume] in Serum or PlasmaOrdered By: Leigha Nelson on 08-30-2023 Potassium [Moles/Vol] 4.5 mmol/L 3.5-5.1 [facility] Protein [Mass/volume] in Ser um or PlasmaOrdered By: Leigha Nelson on 08-30-2023 Protein [Mass/Vol] 6.9 g/dL 6.4-8.9 [facility] RBC Auto (Bld) [#/Vol]Ordere d By: Leigha Nelson on 08-30-2023 RBC (Bld) [#/Vol] 3.96 10*6/uL 3.90-5.60 [facility] Serum or plasma albumin/glob ulin mass ratioOrdered By: Leigha Nelson on 08-30-2023 Albumin/Globulin [Mass ratio] 1.8 {ratio} [facility] Serum or plasma anion gap de terminationOrdered By: Leigha Nelson on 08-30-2023 Anion gap [Moles/Vol] 10.0 mmol/L 6.0-15.0 [facility] Serum or plasma carcinoembry onic antigen measurement (mass/volume)Ordered By: Leigha Nelson on 08-30-2023 Carcinoembryonic Ag [Mass/Vol] 2.1 ng/mL 0.0-3.0 [facility] Sodium [Moles/volume] in Ser um or PlasmaOrdered By: Leigha Nelson on 08-30-2023 Sodium [Moles/Vol] 143 mmol/L 136-145 [facility] Transferrin [Mass/volume] in Serum or PlasmaOrdered By: Leigha Nelson on 08-30-2023 Transferrin [Mass/Vol] 207 mg/dL 203-362 [facility] Urea nitrogen [Mass/volume] in Serum or PlasmaOrdered By: Leigha Nelson on 08-30-2023 Urea nitrogen [Mass/Vol] 51 mg/dL 7-25 [facility] WBC Auto (Bld) [#/Vol]Ordere d By: Leigha Nelson on 08-30-2023 WBC (Bld) [#/Vol] 7.0 10*3/uL 4.1-10.5 [facility] CT abdomen pelvis wo conon 0 02-28-2023 CT abdomen pelvis wo con [facility] [address] [place] [address] CT Scan Report Signed Patient: Nas Ren MR#: [id number] [birth year] : 1940 Acct:[id number] Age/Sex: 82 / M ADM Date: 02/28/23 Loc: Room: Type: [facility] Attending Dr: Chivo Keller II DO Copies to: Chivo Keller II, DO Ordering Provider: Chivo Keller II, DO Date of Service: 02/28/23 CT/CT abdomen pelvis wo con: surveilance ([id number]) CT/CT chest wo con: surveilance CT CHEST, [...] Scott Jr., D.OKeo02/28/2023 2:57 PM Dictation Location: [place] [address] Transcribed By: [facility] 02/28/23 1457 Dictated By: Sotero Scott Jr, DO 02/28/23 1447 Signed By: 02/28/23 1457 Normal [facility] Complete Blood Count Auto Di ffon 02-28-2023 Basophils (Bld) [#/Vol] 0.1 10*3/uL Normal 0.0-0.2 [facility] Comment on above: Result Comment: PERF ORMED BY: [place] [address] PATHOLOGIST [employer] TRU UMANZOR M.D. Performed By: #### C MP, FE and TIBC, CBC, CEA, TONY ####[place] [id number] [address] Basophils/100 WBC (Bld) 0.6 % Normal . [facility] Comment on above: Performed By: #### C MP, FE and TIBC, CBC, CEA, TONY ####[facility] Eosinophils (Bld) [#/Vol] 0.3 10*3/uL Normal 0.0-0.45 [facility] Comment on above: Performed By: #### C MP, FE and TIBC, CBC, CEA, TONY ####[address] Eosinophils/100 WBC (Bld) 3.6 % Normal . [facility] Comment on above: Performed By: #### C MP, FE and TIBC, CBC, CEA, TONY ####[address] Erythrocyte distribution width (RBC) [Ratio] 14.7 % Normal 12.0-14.8 [facility] Comment on above: Performed By: #### C MP, FE and TIBC, CBC, CEA, TONY ####[address] Hematocrit (Bld) [Volume fraction] 38.1 % Low 38.8-50.0 [facility] Comment on above: Performed By: #### C MP, FE and TIBC, CBC, CEA, TONY ####[address] Hemoglobin (Bld) [Mass/Vol] 12.5 g/dL Low 13.0-17.0 [facility] Comment on above: Performed By: #### C MP, FE and TIBC, CBC, CEA, TONY ####[address] Lymphocytes (Bld) [#/Vol] 1.7 10*3/uL Normal 1.00-4.8 [facility] Comment on above: Performed By: #### C MP, FE and TIBC, CBC, CEA, TONY ####[address] Lymphocytes/100 WBC (Bld) 17.9 % Normal . [facility] Comment on above: Performed By: #### C MP, FE and TIBC, CBC, CEA, TONY ####[address] MCH (RBC) [Entitic mass] 30.7 pg Normal 27.5-35.2 [facility] Comment on above: Performed By: #### C MP, FE and TIBC, CBC, CEA, TONY ####[address] MCV (RBC) [Entitic vol] 93.2 fL Normal 83.5-101 [facility] Comment on above: Performed By: #### C MP, FE and TIBC, CBC, CEA, TONY ####[address] Mean Corpuscular HGB Conc 33.0 g/dL Normal 32.5-35.6 [facility] Comment on above: Performed By: #### C MP, FE and TIBC, CBC, CEA, TONY ####[address] Monocytes (Bld) [#/Vol] 0.9 10*3/uL High 0.0-0.8 [facility] Comment on above: Performed By: #### C MP, FE and TIBC, CBC, CEA, TONY ####[address] Monocytes/100 WBC (Bld) 9.6 % Normal . [facility] Comment on above: Performed By: #### C MP, FE and TIBC, CBC, CEA, TONY ####[address] Neutrophils (Bld) [#/Vol] 6.6 10*3/uL Normal 1.8-7.7 [facility] Comment on above: Performed By: #### C MP, FE and TIBC, CBC, CEA, TONY ####[address] Neutrophils/100 WBC (Bld) 68.3 % Normal . [facility] Comment on above: Performed By: #### C MP, FE and TIBC, CBC, CEA, TONY ####[address] NRBC% 0.3 /100{WBC} Normal 0-0.5 [facility] Comment on above: Performed By: #### C MP, FE and TIBC, CBC, CEA, TONY ####[address] Platelet mean volume (Bld) [Entitic vol] 7.6 fL Normal 6.6-10.1 [facility] Comment on above: Performed By: #### C MP, FE and TIBC, CBC, CEA, TONY ####[address] Platelets (Bld) [#/Vol] 215 10*3/uL Normal 150-450 [facility] Comment on above: Performed By: #### C MP, FE and TIBC, CBC, CEA, TONY ####[address] RBC (Bld) [#/Vol] 4.08 10*6/uL Normal 3.90-5.60 [facility] Comment on above: Performed By: #### C MP, FE and TIBC, CBC, CEA, TONY ####[address] WBC (Bld) [#/Vol] 9.6 10*3/uL Normal 4.1-10.5 [facility] Comment on above: Performed By: #### C MP, FE and TIBC, CBC, CEA, TONY ####[address] Comprehensive Metabolic Pane arelis 02-28-2023 Albumin [Mass/Vol] 4.1 g/dL Normal 3.5-5.7 [facility] Comment on above: Performed By: #### C MP, FE and TIBC, CBC, CEA, TONY ####[address] Albumin/Globulin [Mass ratio] 1.7 {ratio} Normal [facility] Comment on above: Performed By: #### C MP, FE and TIBC, CBC, CEA, TONY ####[address] ALP [Catalytic activity/Vol] 118 U/L High 34-104 [facility] Comment on above: Performed By: #### C MP, FE and TIBC, CBC, CEA, TONY ####[address] ALT [Catalytic activity/Vol] 31 U/L Normal 7-52 [facility] Comment on above: Performed By: #### C MP, FE and TIBC, CBC, CEA, TONY ####[address] Anion gap [Moles/Vol] 13.3 mmol/L Normal 6.0-15.0 [facility] Comment on above: Performed By: #### C MP, FE and TIBC, CBC, CEA, TONY ####[address] AST [Catalytic activity/Vol] 23 U/L Normal 13-39 [facility] Comment on above: Performed By: #### C MP, FE and TIBC, CBC, CEA, TONY ####[address] Bilirubin [Mass/Vol] 0.7 mg/dL Normal 0.3-1.0 [facility] Comment on above: Performed By: #### C MP, FE and TIBC, CBC, CEA, TONY ####[address] Calcium [Mass/Vol] 8.8 mg/dL Normal 8.6-10.3 [facility] Comment on above: Performed By: #### C MP, FE and TIBC, CBC, CEA, TONY ####[address] Chloride [Moles/Vol] 104 mmol/L Normal 98-107 [facility] Comment on above: Performed By: #### C MP, FE and TIBC, CBC, CEA, TONY ####[address] CO2 [Moles/Vol] 29.0 mmol/L Normal 21.0-31.0 [facility] Comment on above: Performed By: #### C MP, FE and TIBC, CBC, CEA, TONY ####[address] Creatinine [Mass/Vol] 2.25 mg/dL High 0.70-1.30 [facility] Comment on above: Performed By: #### C MP, FE and TIBC, CBC, CEA, TONY ####[address] Creatinine Clr Calc Pharmacy 31.39 Normal [facility] Comment on above: Performed By: #### C MP, FE and TIBC, CBC, CEA, TONY ####[address] GFR/1.73 sq M.predicted MDRD (S/P/Bld) [Vol rate/Area] 28.753 mL/min/{1.73_m2} Normal [facility] Comment on above: Performed By: #### C MP, FE and TIBC, CBC, CEA, TONY ####[address] Globulin (S) [Mass/Vol] 2.4 g/dL Normal T [facility] Comment on above: Performed By: #### C MP, FE and TIBC, CBC, CEA, TONY ####[address] Glucose [Mass/Vol] 114 mg/dL High 70-100 [facility] Comment on above: Result Comment: [place]ger Glucose Reference Range is dependent on time and content of last meal. Glucose of more than 200 mg/dL in a nonstressed, ambulatory subject supports the diagnosis of Diabetes Mellitus. ADA recommended reference range Performed By: #### C MP, FE and TIBC, CBC, CEA, TONY ####[address] Potassium [Moles/Vol] 4.3 mmol/L Normal 3.5-5.1 [facility] Comment on above: Performed By: #### C MP, FE and TIBC, CBC, CEA, TONY ####[address] Protein [Mass/Vol] 6.5 g/dL Normal 6.4-8.9 [facility] Comment on above: Performed By: #### C MP, FE and TIBC, CBC, CEA, TONY ####[facility] Sodium [Moles/Vol] 142 mmol/L Normal 136-145 [facility] Comment on above: Performed By: #### C MP, FE and TIBC, CBC, CEA, TONY ####[facility] [address] Urea nitrogen [Mass/Vol] 45 mg/dL High 7-25 [facility] Comment on above: Performed By: #### C MP, FE and TIBC, CBC, CEA, TONY ####[facility] [address] ECHOCARDIO M/2D COMPLETEon 0 02-28-2023 ECHOCARDIO M/2D COMPLETE Patient: NAS REN Exam Date: 02/28/2023 : 1940 Gender:M Ordering : MRS. MADDI BROWNLEELUZ [employer] Admission #: [id number] Family : DR ARNIE LINDA D.O. Order #: [id number] CLICK HERE TO VIEW EXAM ECHOCARDIOGRAM REPORT [...] Ortiz M.D. on 02/28/2023 at 20:26 Normal [facility] Ferritinon 02-28-2023 Ferritin [Mass/Vol] 236.7 ng/mL Normal 23.9-336.2 [facility] Comment on above: Result Comment: PERF ORMED BY: [address] [place] [id number] PATHOLOGIST [employer] TRU UMANZOR M.D. Performed By: #### C MP, FE and TIBC, CBC, CEA, TONY ####[place] [id number] [facility] Iron and TIBC Profileon 02-13 % Iron Saturation 19.9 % Low 20-50 [facility] Comment on above: Performed By: #### C MP, FE and TIBC, CBC, CEA, TONY ####[place] [id number] [facility] Iron [Mass/Vol] 56 ug/dL Normal 50-212 [facility] Comment on above: Performed By: #### C MP, FE and TIBC, CBC, CEA, TONY ####[place] [id number] [facility] Total Iron Binding Capacity 281 ug/dL Normal 255-450 [facility] Comment on above: Performed By: #### C MP, FE and TIBC, CBC, CEA, TONY ####[place] [id number] [facility] Transferrin [Mass/Vol] 201 mg/dL Low 203-[address] [facility] Comment on above: Performed By: #### C MP, FE and TIBC, CBC, CEA, TONY ####[address] [place] [address] [facility] T3, TOTAL (TRIIODOTHYRONINE) on 02-16-2023 T3, TOTAL 83 ng/dL Normal 71-180 [facility] Comment on above: Performed By: #### F T4, PSASC #### [facility] [address] [address] [address] Benito Schwartz FREE T4on 02-15-2023 Free T4 [Mass/Vol] 1.03 ng/dL Normal 0.76-1.46 [facility] Comment on above: Performed By: #### F T4 #### [facility] [address] [address] [address] Benito Schwartz LIPID PROFILEon 02-15-2023 CHOL-HDL RATIO NORM SEE BELOW Normal [facility] Comment on above: Result Comment: 3.3 - 4.4 LOW RISK 4.4 - 7.1 AVERAGE RISK 7.1 - 11.0 MODERATE RISK >11.0 HIGH RISK Performed By: #### T SH, FT3, BMP #### [facility] [address] [address] [address] Benito Schwartz Cholesterol [Mass/Vol] 164 mg/dL Normal <=200 [facility] Comment on above: Performed By: #### T SH, FT3, BMP #### [facility] [address] [address] [address] Benito Schwartz Cholesterol in HDL [Mass/Vol] 41 mg/dL Normal 40-60 [facility] Comment on above: Performed By: #### T SH, FT3, BMP #### [facility] [address] [address] [address] Benito Schwartz Cholesterol in LDL [Mass/Vol] 104.2 mg/dL Normal [facility] Comment on above: Performed By: #### T SH, FT3, BMP #### [facility] [address] [address] [address] Benito Schwartz Cholesterol.total/Choles terol in HDL [Mass ratio] 4.0 {ratio} Normal [facility] Comment on above: Performed By: #### T SH, FT3, BMP #### [facility] [address] [address] [address] Benito Schwartz HDL NORMAL > or = 60 mg/dl - LOW CARDIOVASCULAR RISK <40 mg/dl - HIGH CARDIOVASCULAR RISK Normal [facility] Comment on above: Performed By: #### T SH, FT3, BMP #### [facility] [address] [address] [address] Benito Schwartz LDL CALC NORMAL SEE BELOW Normal [facility] Comment on above: Result Comment: <100 mg/dl OPTIMAL 100 - 129 mg/dl NEAR OR ABOVE OPTIMAL 130 - 159 mg/dl BORDERLINE HIGH 160 - 189 mg/dl HIGH >190 mg/dl VERY HIGH Performed By: #### T SH, FT3, BMP #### [facility] [address] [place] [address] Dr. Benito Schwartz Triglyceride [Mass/Vol] 94 mg/dL Normal <=150 [facility] Comment on above: Performed By: #### T SH, FT3, BMP #### [facility] [address] [address] [address] Benito Schwartz VLDL CALC 18.8 mg/dL Normal [facility] Comment on above: Performed By: #### T SH, FT3, BMP #### [facility] [address] [place] [address] Dr. Benito Schwartz TSHon 02-15-2023 TSH 22.732 uIU/mL Critically high 0.358-3.740 [facility] Comment on above: Performed By: #### F T4, PSASC #### [facility] [address] [place] [address] Dr. Benito Schwartz PTH INTACTon 01-03-2023 PTH, Intact 46 pg/mL Normal 15-65 [facility] Comment on above: Performed By: #### U RTPCR #### [facility] [address] [place] [address] Dr. Benito Schwartz T3, TOTAL (TRIIODOTHYRONINE) on 01-03-2023 T3, TOTAL 77 ng/dL Normal 71-180 [facility] Comment on above: Performed By: #### T SH, FT3, BMP #### [facility] [address] [place] [address] Dr. Benito Schwartz CBC AUTO DIFFon 01-02-2023 BASO # 0.0 103/ul Normal 0.0-0.1 [facility] Comment on above: Performed By: #### C BC #### [facility] [address] [place] [address] Dr. Benito Schwartz Basophils/100 WBC (Bld) 0.4 % Normal 0.2-2.0 [facility] Comment on above: Performed By: #### C BC #### [facility] [address] [place] [address] Dr. Benito Schwartz EO # 0.4 103/ul Normal 0.0-0.7 [facility] Comment on above: Performed By: #### C BC #### [facility] [address] [place] [address] Dr. Benito Schwartz Eosinophils/100 WBC (Bld) 5.1 % Normal 0.9-7.0 [facility] Comment on above: Performed By: #### C BC #### [facility] [address] [place] [address] Dr. Benito Schwartz Erythrocyte distribution width (RBC) [Ratio] 13.2 % Normal 11.0-15.0 [facility] Comment on above: Performed By: #### C BC #### [facility] [address] [place] [address] Dr. Benito Schwartz Hematocrit (Bld) [Volume fraction] 37.4 % Critically low 42.0-54.0 [facility] Comment on above: Performed By: #### C BC #### [facility] [address] [place] [address] Dr. Benito Schwartz Hemoglobin (Bld) [Mass/Vol] 12.4 g/dL Critically low 14.0-18.0 [facility] Comment on above: Performed By: #### C BC #### [facility] [address] [place] [address] Dr. Benito Schwartz IG # 0.03 10e3/ul Normal 0.00-0.03 [facility] Comment on above: Performed By: #### C BC #### [facility] [address] [place] [address] Dr. Benito Schwartz IG % 0.4 % Normal 0.0-0.5 [facility] Comment on above: Performed By: #### C BC #### [facility] [address] [place] [address] Dr. Benito Schwartz LYMPH # 1.6 103/ul Normal 1.2-3.8 [facility] Comment on above: Performed By: #### C BC #### [facility] [address] [place] [address] Dr. Benito Schwartz Lymphocytes/100 WBC (Bld) 20.3 % Critically low 20.5-60.0 [facility] Comment on above: Performed By: #### C BC #### [facility] [address] [place] [address] Dr. Benito Schwartz MANUAL DIFF REQ NO Normal [facility] Comment on above: Performed By: #### C BC #### [facility] [address] [place] [address] Dr. Benito Schwartz MCH (RBC) [Entitic mass] 31.7 pg Normal 25.9-34.0 [facility] Comment on above: Performed By: #### C BC #### [facility] [address] [place] [address] Dr. Benito Schwartz MCHC (RBC) [Mass/Vol] 33.2 g/dL Normal 29.9-35.2 [facility] Comment on above: Performed By: #### C BC #### [facility] [address] [place] [address] Dr. Benito Schwartz MCV (RBC) [Entitic vol] 95.7 fL Critically high 80.0-94 .0 [facility] Comment on above: Performed By: #### C BC #### [facility] [address] [place] [address] Dr. Benito Schwartz MONO # 0.7 103/ul Normal 0.3-0.8 [facility] Comment on above: Performed By: #### C BC #### [facility] [address] [place] [address] Dr. Benito Schwartz Monocytes/100 WBC (Bld) 8.6 % Normal 1.7-12.0 [facility] Comment on above: Performed By: #### C BC #### [facility] [address] [place] [address] Dr. Benito Schwartz NEUT # 5.3 103/ul Normal 1.4-6.5 [facility] Comment on above: Performed By: #### C BC #### [facility] [address] [place] [address] Dr. Benito Schwartz Neutrophils/100 WBC (Bld) 65.2 % Normal 43.0-75.0 [facility] Comment on above: Performed By: #### C BC #### [facility] [address] [place] [address] Dr. Benito Schwartz Platelet mean volume (Bld) [Entitic vol] 9.0 fL Critically low 9.5-13.5 [facility] Comment on above: Performed By: #### C BC #### [facility] [address] [place] [address] Dr. Benito Schwartz PLT 209 103/ul Normal 150-450 [facility] Comment on above: Performed By: #### C BC #### [facility] [address] [place] [address] Dr. Benito Schwartz RBC 3.91 106/ul Critically low 4.70-6.10 [facility] Comment on above: Performed By: #### C BC #### [facility] [address] [place] [address] Dr. Benito Schwartz WBC 8.1 103/ul Normal 4.0-11.0 [facility] Comment on above: Performed By: #### C BC #### [facility] [address] [place], [place] [id number] Dr. Benito Schwartz FREE T4on 01-02-2023 Free T4 [Mass/Vol] 0.87 ng/dL Normal 0.76-1.46 [facility] Comment on above: Performed By: #### F T4, PSASC #### [facility] [address] [place] [address] Dr. Benito Schwartz GLYCOHEMOGLOBIN A1Con 2022 ADA RECOMMENDATION SEE BELOW Normal [facility] Comment on above: Result Comment: ADA RECOMMENDED LIMIT 4.0 - 6.0 ADA THERAPEUTIC TARGET < 7.0 ACTION SUGGESTED > 7.0 Performed By: #### C BC #### [facility] [address] [place] [address] Dr. Benito Schwartz Glucose [Mass/Vol] 126 mg/dL Normal [facility] Comment on above: Performed By: #### C BC #### [facility] [address] [place] [address] Dr. Benito Schwartz HbA1c (Bld) [Mass fraction] 6.0 % Normal 4.5-6.2 [facility] Comment on above: Performed By: #### C BC #### [facility] [address] [place] [address] Dr. Benito Schwartz MAGNESIUMon 01-02-2023 Magnesium [Mass/Vol] 2.3 mg/dL Normal 1.8-2.4 [facility] Comment on above: Performed By: #### U RTPCR #### [facility] [address] [place] [address] Dr. Benito Schwartz PHOSPHORUSon 01-02-2023 Phosphate [Mass/Vol] 4.1 mg/dL Normal 2.6-4.7 [facility] Comment on above: Performed By: #### U RTPCR #### [facility] [address] [place] [address] Dr. Benito Schwartz PROF CHEM 8 (BAS METB)on Anion gap [Moles/Vol] 11.1 mmol/L Normal [facility] Comment on above: Performed By: #### U RTPCR #### [facility] [address] [place] [address] Dr. Benito Schwartz Calcium [Mass/Vol] 8.9 mg/dL Normal 8.5-10.1 [facility] Comment on above: Performed By: #### U RTPCR #### [facility] [address] [place] [address] Dr. Benito Schwartz Chloride [Moles/Vol] 100 mmol/L Normal 98-107 [facility] Comment on above: Performed By: #### U RTPCR #### [facility] [address] [address] [address] Benito Schwartz CO2 [Moles/Vol] 33.2 mmol/L Critically high 21.0-32.0 [facility] Comment on above: Performed By: #### U RTPCR #### [facility] [address] [address] [address] Benito Schwartz Creatinine [Mass/Vol] 2.31 mg/dL Critically high 0.70-1.30 [facility] Comment on above: Performed By: #### U RTPCR #### [facility] [address] [place] [address] Dr. Benito Schwartz EGFR-AF MARSHALLESE 33 mL/min/1.73m2 Critically low >=60 [facility] Comment on above: Performed By: #### U RTPCR #### [facility] [address] [place] [address] Dr. Benito Schwartz EGFR-NON AF MARSHALLESE 27 mL/min/1.73m2 Critically low >=60 [facility] Comment on above: Performed By: #### U RTPCR #### [facility] [address] [place] [address] Dr. Benito Schwartz Glucose [Mass/Vol] 112 mg/dL Critically high 74-106 [facility] Comment on above: Performed By: #### U RTPCR #### [facility] [address] [place] [address] Dr. Benito Schwartz Potassium [Moles/Vol] 4.3 mmol/L Normal 3.5-5.1 [facility] Comment on above: Performed By: #### U RTPCR #### [facility] [address] [place] [address] Dr. Benito Schwartz Sodium [Moles/Vol] 140 mmol/L Normal 136-145 [facility] Comment on above: Performed By: #### U RTPCR #### [facility] [address] [place] [address] Dr. Benito Schwartz Urea nitrogen [Mass/Vol] 51.0 mg/dL Critically high 7.0-18 .0 [facility] Comment on above: Performed By: #### U RTPCR #### [facility] [address] [place] [address] Dr. Benito Schwartz Urea nitrogen/Creatinine [Mass ratio] 22.1 mg/mg Normal [facility] Comment on above: Performed By: #### U RTPCR #### [facility] [address] [place] [address] Dr. Benito Schwartz TSHon 01-02-2023 TSH 27.692 uIU/mL Critically high 0.358-3.740 [facility] Comment on above: Performed By: #### C BC #### [facility] [address] [place] [address] Dr. Benito Schwartz UA RANDOMon 01-02-2023 Bilirubin Ql (U) Negative Normal NEGATIVE [facility] Comment on above: Performed By: #### U RTPCR #### [facility] [address] [place] [address] Dr. Benito Schwartz Clarity (U) CLEAR Normal CLEAR [facility] Comment on above: Performed By: #### U RTPCR #### [facility] [address] [place] [address] Dr. Benito Schwartz Color (U) LT. YELLOW Normal YELLOW [facility] Comment on above: Performed By: #### U RTPCR #### [facility] [address] [place] [address] Dr. Benito Schwartz Glucose Ql (U) Negative Normal NEGATIVE [facility] Comment on above: Performed By: #### U RTPCR #### [facility] [address] [place] [address] Dr. Benito Schwartz Hemoglobin Ql (U) Negative Normal NEGATIVE [facility] Comment on above: Performed By: #### U RTPCR #### [facility] [address] [place] [address] Dr. Benito Schwartz Ketones Ql (U) Negative Normal NEGATIVE [facility] Comment on above: Performed By: #### U RTPCR #### [facility] [address] [place] [address] Dr. Benito Schwartz LEUKOCYTES Negative Normal NEGATIVE [facility] Comment on above: Performed By: #### U RTPCR #### [facility] [address] [place] [address] Dr. Benito Schwartz Nitrite Ql (U) Negative Normal NEGATIVE [facility] Comment on above: Performed By: #### U RTPCR #### [facility] [address] [place] [address] Dr. Benito Schwartz pH (U) 6.0 [pH] Normal 5-9 [facility] Comment on above: Performed By: #### U RTPCR #### [facility] [address] [place] [address] Dr. Benito Schwartz SPEC GRAVITY <=1.005 Abnormal 1.005-<=1.02 5 [facility] Comment on above: Performed By: #### U RTPCR #### [facility] [address] [place] [address] Dr. Benito Schwartz UA PROTEIN Negative Normal NEGATIVE/ TRACE [facility] Comment on above: Performed By: #### U RTPCR #### [facility] [address] [place] [address] Dr. Benito Schwartz Urobilinogen Qn (U) 0.2 {Jagruti'U}/dL Normal 0.2 - 1. 0 [facility] Comment on above: Performed By: #### U RTPCR #### [facility] [address] [place] [address] Dr. Benito Schwartz URINE T PROTEIN CREAT RATIOo n 01-02-2023 Protein (U) [Mass/Vol] 19.1 mg/dL Critically high <=12.0 [facility] Comment on above: Performed By: #### F T4, PSASC #### [facility] [address] [place] [address] Dr. Benito Schwartz UR PROT CREAT RAT 0.75 Normal [facility] Comment on above: Performed By: #### F T4, PSASC #### [facility] [address] [place] [address] Dr. Benito Schwartz URINE CREAT 25.63 mg/dL Normal 20.00-300.00 [facility] Comment on above: Performed By: #### F T4, PSASC #### [facility] [address] [place] [address] Dr. Benito Schwartz VITAMIN D 25 OHon 01-02-2023 VIT D 25-OH 86.8 ng/mL Normal [facility] Comment on above: Performed By: #### U RTPCR #### [facility] [address] [place] [address] Dr. Benito Schwartz VIT D RANGES SEE BELOW Normal [facility] Comment on above: Result Comment: <20 ng/mL Vit D deficient 20 - <30 ng/mL Vit D insufficient 30 - 100 ng/mL Vit D sufficient >100 ng/mL Potential Toxicity Performed By: #### U RTPCR #### [facility] [address] [place] [address] Dr. Benito Schwartz T3, TOTAL (TRIIODOTHYRONINE) on 11-17-2022 T3, TOTAL 82 ng/dL Normal 71-180 [facility] Comment on above: Performed By: #### V ITAD #### [facility] [address] [place] [address] Dr. Benito Schwartz FREE T4on 11-16-2022 Free T4 [Mass/Vol] 0.93 ng/dL Normal 0.76-1.46 [facility] Comment on above: Performed By: #### C BC #### [facility] [address] [place] [address] Dr. Benito Schwartz TSHon 11-16-2022 TSH 31.189 uIU/mL Critically high 0.358-3.740 [facility] Comment on above: Performed By: #### F T4, PSASC #### [facility] [address] [place] [address] Dr. Benito Schwartz T3, TOTAL (TRIIODOTHYRONINE) on 10-04-2022 T3, TOTAL 43 ng/dL Critically low 71-180 [facility] Comment on above: Performed By: #### F T4, PSASC #### [facility] [address] [place] [address] Dr. Benito Schwartz FREE T4on 10-03-2022 Free T4 [Mass/Vol] 0.35 ng/dL Critically low 0.76-1.46 [facility] Comment on above: Performed By: #### F T4, PSASC #### [facility] [address] [place] [address] Dr. Benito Schwartz TSHon 10-03-2022 TSH 121.174 uIU/mL Critically high 0.358-3.740 [facility] Comment on above: Performed By: #### F T4, PSASC #### [facility] [address] [place] [address] Dr. Benito Schwartz MAGNESIUMon 09-22-2022 Magnesium [Mass/Vol] 2.5 mg/dL Critically high 1.8-2.4 [facility] Comment on above: Performed By: #### F T4 #### [facility] [address] [place] [address] Dr. Benito Schwartz PROF CHEM 8 (BAS METB)on Anion gap [Moles/Vol] 7.3 mmol/L Normal [facility] Comment on above: Performed By: #### F T4 #### [facility] [address] [place] [address] Dr. Benito Schwartz Calcium [Mass/Vol] 8.8 mg/dL Normal 8.5-10.1 [facility] Comment on above: Performed By: #### F T4 #### [facility] [address] [place] [address] Dr. Benito Schwartz Chloride [Moles/Vol] 100 mmol/L Normal 98-107 [facility] Comment on above: Performed By: #### F T4 #### [facility] [address] [place] [address] Dr. Benito Schwartz CO2 [Moles/Vol] 33.7 mmol/L Critically high 21.0-32.0 [facility] Comment on above: Performed By: #### F T4 #### [facility] [address] [place] [address] Dr. Benito Schwartz Creatinine [Mass/Vol] 2.43 mg/dL Critically high 0.70-1.30 [facility] Comment on above: Performed By: #### F T4 #### [facility] [address] [address] [address] Benito Schwartz EGFR-AF MARSHALLESE 31 mL/min/1.73m2 Critically low >=60 [facility] Comment on above: Performed By: #### F T4 #### [facility] [address] [address] [address] Benito Schwartz EGFR-NON AF MARSHALLESE 26 mL/min/1.73m2 Critically low >=60 [facility] Comment on above: Performed By: #### F T4 #### [facility] [address] [place] [address] Dr. Benito Schwartz Glucose [Mass/Vol] 136 mg/dL Critically high 74-106 [facility] Comment on above: Performed By: #### F T4 #### [facility] [address] [address] [address] Benito Schwartz Potassium [Moles/Vol] 4.0 mmol/L Normal 3.5-5.1 [facility] Comment on above: Performed By: #### F T4 #### [facility] [address] [address] [address] Benito Schwartz Sodium [Moles/Vol] 137 mmol/L Normal 136-145 [facility] Comment on above: Performed By: #### F T4 #### [facility] [address] [address] [address] Benito Schwartz Urea nitrogen [Mass/Vol] 47.0 mg/dL Critically high 7.0-18 .0 [facility] Comment on above: Performed By: #### F T4 #### [facility] [address] [place] [address] Dr. Benito Schwartz Urea nitrogen/Creatinine [Mass ratio] 19.3 mg/mg Normal [facility] Comment on above: Performed By: #### F T4 #### [facility] [address] [place] [address] Dr. Benito Schwartz PTH INTACTon 09-10-2022 PTH, Intact 36 pg/mL Normal 15-65 [facility] Comment on above: Performed By: #### F T4, PSASC #### [facility] [address] [place] [address] Dr. Benito Schwartz CBC AUTO DIFFon 09-09-2022 BASO # 0.0 103/ul Normal 0.0-0.1 [facility] Comment on above: Performed By: #### F T4, PSASC #### [facility] [address] [place] [address] Dr. Benito Schwartz Basophils/100 WBC (Bld) 0.5 % Normal 0.2-2.0 [facility] Comment on above: Performed By: #### F T4, PSASC #### [facility] [address] [place] [address] Dr. Benito Schwartz EO # 0.4 103/ul Normal 0.0-0.7 [facility] Comment on above: Performed By: #### F T4, PSASC #### [facility] [address] [place] [address] Dr. Benito Schwartz Eosinophils/100 WBC (Bld) 5.3 % Normal 0.9-7.0 [facility] Comment on above: Performed By: #### F T4, PSASC #### [facility] [address] [place] [address] Dr. Benito Schwartz Erythrocyte distribution width (RBC) [Ratio] 14.3 % Normal 11.0-15.0 [facility] Comment on above: Performed By: #### F T4, PSASC #### [facility] [address] [place] [address] Dr. Benito Schwartz Hematocrit (Bld) [Volume fraction] 36.9 % Critically low 42.0-54.0 [facility] Comment on above: Performed By: #### F T4, PSASC #### [facility] [address] [place] [address] Dr. Benito Schwartz Hemoglobin (Bld) [Mass/Vol] 12.4 g/dL Critically low 14.0-18.0 [facility] Comment on above: Performed By: #### F T4, PSASC #### [facility] [address] [address] [address] Benito Schwartz IG # 0.04 10e3/ul Critically high 0.00-0.03 [facility] Comment on above: Performed By: #### F T4, PSASC #### [facility] [address] [address] [address] Benito Schwartz IG % 0.5 % Normal 0.0-0.5 [facility] Comment on above: Performed By: #### F T4, PSASC #### [facility] [address] [address] [address] Benito Schwartz LYMPH # 1.6 103/ul Normal 1.2-3.8 [facility] Comment on above: Performed By: #### F T4, PSASC #### [facility] [address] [place] [address] Dr. Benito Schwartz Lymphocytes/100 WBC (Bld) 22.2 % Normal 20.5-60.0 [facility] Comment on above: Performed By: #### F T4, PSASC #### [facility] [address] [address] [address] Benito Schwartz MANUAL DIFF REQ NO Normal [facility] Comment on above: Performed By: #### F T4, PSASC #### [facility] [address] [address] [address] Benito Schwartz MCH (RBC) [Entitic mass] 31.2 pg Normal 25.9-34.0 [facility] Comment on above: Performed By: #### F T4, PSASC #### [facility] [address] [address] [address] Benito Schwartz MCHC (RBC) [Mass/Vol] 33.6 g/dL Normal 29.9-35.2 [facility] Comment on above: Performed By: #### F T4, PSASC #### [facility] [address] [address] [address] Benito Schwartz MCV (RBC) [Entitic vol] 92.7 fL Normal 80.0-94.0 [facility] Comment on above: Performed By: #### F T4, PSASC #### [facility] [address] [address] [address] Benito Schwartz MONO # 0.5 103/ul Normal 0.3-0.8 [facility] Comment on above: Performed By: #### F T4, PSASC #### [facility] [address] [place] [address] Dr. Benito Schwartz Monocytes/100 WBC (Bld) 6.4 % Normal 1.7-12.0 [facility] Comment on above: Performed By: #### F T4, PSASC #### [facility] [address] [place] [address] Dr. Benito Schwartz NEUT # 4.8 103/ul Normal 1.4-6.5 [facility] Comment on above: Performed By: #### F T4, PSASC #### [facility] [address] [place] [address] Dr. Benito Schwartz Neutrophils/100 WBC (Bld) 65.1 % Normal 43.0-75.0 [facility] Comment on above: Performed By: #### F T4, PSASC #### [facility] [address] [place] [address] Dr. Benito Schwartz Platelet mean volume (Bld) [Entitic vol] 8.7 fL Critically low 9.5-13.5 [facility] Comment on above: Performed By: #### F T4, PSASC #### [facility] [address] [place] [address] Dr. Benito Schwartz PLT 206 103/ul Normal 150-450 [facility] Comment on above: Performed By: #### F T4, PSASC #### [facility] [address] [place] [address] Dr. Benito Schwartz RBC 3.98 106/ul Critically low 4.70-6.10 [facility] Comment on above: Performed By: #### F T4, PSASC #### [facility] [address] [place] [address] Dr. Benito Schwartz WBC 7.4 103/ul Normal 4.0-11.0 [facility] Comment on above: Performed By: #### F T4, PSASC #### [facility] [address] [place] [address] Dr. Benito Schwartz MAGNESIUMon 09-09-2022 Magnesium [Mass/Vol] 2.1 mg/dL Normal 1.8-2.4 [facility] Comment on above: Performed By: #### B 12FOL, FETIBC #### [facility] [address] [place] [address] Dr. Benito Schwartz PHOSPHORUSon 09-09-2022 Phosphate [Mass/Vol] 3.2 mg/dL Normal 2.6-4.7 [facility] Comment on above: Performed By: #### B 12FOL, FETIBC #### [facility] [address] [place] [address] Dr. Benito Schwartz PROF CHEM 8 (BAS METB)on Anion gap [Moles/Vol] 10.1 mmol/L Normal Th [facility] Comment on above: Performed By: #### B 12FOL, FETIBC #### [facility] [address] [place] [address] Dr. Benito Schwartz Calcium [Mass/Vol] 9.3 mg/dL Normal 8.5-10.1 [facility] Comment on above: Performed By: #### B 12FOL, FETIBC #### [facility] [address] [place] [address] Dr. Benito Schwartz Chloride [Moles/Vol] 99 mmol/L Normal 98-107 [facility] Comment on above: Performed By: #### B 12FOL, FETIBC #### [facility] [address] [place] [address] Dr. Benito Schwartz CO2 [Moles/Vol] 32.4 mmol/L Critically high 21.0-32.0 [facility] Comment on above: Performed By: #### B 12FOL, FETIBC #### [facility] [address] [place] [address] Dr. Benito Schwartz Creatinine [Mass/Vol] 2.77 mg/dL Critically high 0.70-1.30 [facility] Comment on above: Performed By: #### B 12FOL, FETIBC #### [facility] [address] [place] [address] Dr. Benito Schwartz EGFR-AF MARSHALLESE 27 mL/min/1.73m2 Critically low >=60 [facility] Comment on above: Performed By: #### B 12FOL, FETIBC #### [facility] [address] [address] [address] Benito Schwartz EGFR-NON AF MARSHALLESE 22 mL/min/1.73m2 Critically low >=60 [facility] Comment on above: Performed By: #### B 12FOL, FETIBC #### [facility] [address] [place] [address] Dr. Benito Schwartz Glucose [Mass/Vol] 166 mg/dL Critically high 74-106 [facility] Comment on above: Performed By: #### B 12FOL, FETIBC #### [facility] [address] [place] [address] Dr. Benito Schwartz Potassium [Moles/Vol] 3.5 mmol/L Normal 3.5-5.1 [facility] Comment on above: Performed By: #### B 12FOL, FETIBC #### [facility] [address] [place] [address] Dr. Benito Schwartz Sodium [Moles/Vol] 138 mmol/L Normal 136-145 [facility] Comment on above: Performed By: #### B 12FOL, FETIBC #### [facility] [address] [place] [address] Dr. Benito Schwartz Urea nitrogen [Mass/Vol] 50.0 mg/dL Critically high 7.0-18 .0 [facility] Comment on above: Performed By: #### B 12FOL, FETIBC #### [facility] [address] [place] [address] Dr. Benito Schwartz Urea nitrogen/Creatinine [Mass ratio] 18.1 mg/mg Normal [facility] Comment on above: Performed By: #### B 12FOL, FETIBC #### [facility] [address] [place] [address] Dr. Benito Schwartz UA RANDOMon 09-09-2022 Bilirubin Ql (U) Negative Normal NEGATIVE [facility] Comment on above: Performed By: #### V ITAD #### [facility] [address] [place] [address] Dr. Benito Schwartz Clarity (U) CLEAR Normal CLEAR [facility] Comment on above: Performed By: #### V ITAD #### [facility] [address] [place] [address] Dr. Benito Schwartz Color (U) LT. YELLOW Normal YELLOW [facility] Comment on above: Performed By: #### V ITAD #### [facility] [address] [place] [address] Dr. Benito Schwartz Glucose Ql (U) Negative Normal NEGATIVE [facility] Comment on above: Performed By: #### V ITAD #### [facility] [address] [place] [address] Dr. Benito Schwartz Hemoglobin Ql (U) Negative Normal NEGATIVE [facility] Comment on above: Performed By: #### V ITAD #### [facility] [address] [place] [address] Dr. Benito Schwartz Ketones Ql (U) Negative Normal NEGATIVE [facility] Comment on above: Performed By: #### V ITAD #### [facility] [address] [place] [address] Dr. Benito Schwartz LEUKOCYTES Negative Normal NEGATIVE [facility] Comment on above: Performed By: #### V ITAD #### [facility] [address] [place] [address] Dr. Benito Schwartz Nitrite Ql (U) Negative Normal NEGATIVE [facility] Comment on above: Performed By: #### V ITAD #### [facility] [address] [place] [address] Dr. Benito Schwartz pH (U) 5.5 [pH] Normal 5-9 [facility] Comment on above: Performed By: #### V ITAD #### [facility] [address] [place] [address] Dr. Benito Schwartz SPEC GRAVITY 1.010 Normal 1.005-<=1.02 5 [facility] Comment on above: Performed By: #### V ITAD #### [facility] [address] [place] [address] Dr. Benito Schwartz UA PROTEIN Negative Normal NEGATIVE/ TRACE [facility] Comment on above: Performed By: #### V ITAD #### [facility] [address] [place] [address] Dr. Benito Schwartz Urobilinogen Qn (U) 0.2 {Jagruti'U}/dL Normal 0.2 - 1. 0 [facility] Comment on above: Performed By: #### V ITAD #### [facility] [address] [place] [address] Dr. Benito Schwartz URINE T PROTEIN CREAT RATIOo n 09-09-2022 Protein (U) [Mass/Vol] 16.4 mg/dL Critically high <=12.0 [facility] Comment on above: Performed By: #### T KRISTOPHER, FT3, BMP #### [facility] [address] [place] [address] Dr. Benito Schwartz UR PROT CREAT RAT 0.79 Normal [facility] Comment on above: Performed By: #### T SH, FT3, BMP #### [facility] [address] [place] [address] Dr. Benito Schwartz URINE CREAT 20.88 mg/dL Normal 20.00-300.00 [facility] Comment on above: Performed By: #### T SH, FT3, BMP #### [facility] [address] [place] [address] Dr. Benito Schwartz VITAMIN D 25 OHon 09-09-2022 VIT D 25-OH 83.7 ng/mL Normal [facility] Comment on above: Performed By: #### V ITAD #### [facility] [address] [place] [address] Dr. Benito Schwartz VIT D RANGES SEE BELOW Normal [facility] Comment on above: Result Comment: <20 ng/mL Vit D deficient 20 - <30 ng/mL Vit D insufficient 30 - 100 ng/mL Vit D sufficient >100 ng/mL Potential Toxicity Performed By: #### V ITAD #### [facility] [address] [place] [address] Dr. Benito Schwartz Albumin [Mass/volume] in Ser um or PlasmaOrdered By: Leigha Nelson on 08-31-2022 Albumin [Mass/Vol] 3.9 g/dL 3.2-5.5 [facility] Basophils Auto (Bld) [#/Vol] Ordered By: Leigha Nelson on 08-31-2022 Basophils (Bld) [#/Vol] 0.0 10*3/uL 0.0-0.2 [facility] Basophils/100 WBC Auto (Bld) Ordered By: Leigha Nelson on 08-31-2022 Basophils/100 WBC (Bld) 0.5 % . F [facility] Creatinine and Glomerular fi ltration rate.predicted panel (S/P/Bld)Ordered By: Leigha Nelson on 08-31-2022 Creatinine [Mass/Vol] 2.63 mg/dL 0.64-1.27 [facility] Eosinophils Auto (Bld) [#/Vo l]Ordered By: Leigha Nelson on 08-31-2022 Eosinophils (Bld) [#/Vol] 0.3 10*3/uL 0.0-0.45 [facility] Eosinophils/100 WBC Auto (Bl d)Ordered By: Leigha Nleson on 08-31-2022 Eosinophils/100 WBC (Bld) 4.3 % . [facility] Erythrocyte distribution wid th Auto (RBC) [Ratio]Ordered By: Leigha Nelson on 08-31-2022 Erythrocyte distribution width (RBC) [Ratio] 15.7 % 12.0-14.8 [facility] Estimated glomerular filtrat ion rate (GFR) non- AmericanOrdered By: Leigha Nelson on 08-31-2022 GFR/1.73 sq M.predicted among non-blacks MDRD (S/P/Bld) [Vol rate/Area] 24 mL/Min [facility] Globulin Calc (S) [Mass/Vol] Ordered By: Leigha Nelson on 08-31-2022 Globulin (S) [Mass/Vol] 2.8 g/dL F [facility] Hematocrit Auto (Bld) [Volum e fraction]Ordered By: Leigha Nelson on 08-31-2022 Hematocrit (Bld) [Volume fraction] 37.2 % 38.8-50.0 [facility] Hemoglobin [Mass/volume] in BloodOrdered By: Leigha Nelson on 08-31-2022 Hemoglobin (Bld) [Mass/Vol] 12.4 g/dL 13.0-17.0 [facility] - Hematology and Cell countsOrdered By: Leigha Nelson on 08-31-2022 Nucleated RBC/100 WBC (Bld) [Ratio] 0.1 % 0-0.5 [facility] Leukocytes [#/volume] in Blo od by Automated countOrdered By: Leigha Nelson on 08-31-2022 WBC (Bld) [#/Vol] 6.7 10*3/uL 4.5-11.0 [facility] Lymphocytes Auto (Bld) [#/Vo l]Ordered By: Leigha Nelson on 08-31-2022 Lymphocytes (Bld) [#/Vol] 1.2 10*3/uL 1.00-4.8 [facility] Lymphocytes/100 WBC Auto (Bl d)Ordered By: Leigha Nelson on 08-31-2022 Lymphocytes/100 WBC (Bld) 18.5 % . [facility] MCH Auto (RBC) [Entitic mass ]Ordered By: Leigha Nelson on 08-31-2022 MCH (RBC) [Entitic mass] 31.0 pg 27.5-35.2 [facility] MCHC Auto (RBC) [Mass/Vol]Or dered By: Leigha Nelson on 08-31-2022 MCHC (RBC) [Mass/Vol] 33.4 g/dL 32.5-35.6 [facility] MCV Auto (RBC) [Entitic vol] Ordered By: Leigha Nelson on 08-31-2022 MCV (RBC) [Entitic vol] 92.9 fL 83.5-101 F [facility] Monocytes Auto (Bld) [#/Vol] Ordered By: Leigha Nelson on 08-31-2022 Monocytes (Bld) [#/Vol] 0.6 10*3/uL 0.0-0.8 [facility] Monocytes/100 WBC Auto (Bld) Ordered By: Leigha Omar on 08-31-2022 Monocytes/100 WBC (Bld) 8.4 % . F [facility] Neutrophils Auto (Bld) [#/Vo l]Ordered By: Leigha Nelson on 08-31-2022 Neutrophils (Bld) [#/Vol] 4.6 10*3/uL 1.8-7.7 [facility] Neutrophils/100 WBC Auto (Bl d)Ordered By: Leigha Nelson on 08-31-2022 Neutrophils/100 WBC (Bld) 68.3 % . [facility] No Panel InformationOrdered By: Leigha Omar on 08-31-2022 Estimated GFR () 29 mL/Min [facility] Comment on above: GFR estimated refere nce range: According to KDOQI guidelines, <60 ml/min/1.73m2 is sufficient to diagnose a patient with chronic kidney disease. Pharmacy Creatinine Clearance (Chem 26.08 [facility] Platelet mean volume Auto (B ld) [Entitic vol]Ordered By: Leigha Nelson on 08-31-2022 Platelet mean volume (Bld) [Entitic vol] 6.8 fL 6.6-10.1 [facility] Platelets Auto (Bld) [#/Vol] Ordered By: Leigha Nelson on 08-31-2022 Platelets (Bld) [#/Vol] 238 10*3/uL 150-450 [facility] Protein [Mass/volume] in Ser um or PlasmaOrdered By: Leigha Nelson on 08-31-2022 Protein [Mass/Vol] 6.7 g/dL 6.1-7.9 [facility] RBC Auto (Bld) [#/Vol]Ordere d By: Leigha Nelson on 08-31-2022 RBC (Bld) [#/Vol] 4.00 10*6/uL 3.90-5.60 [facility] Serum or plasma alanine paige otransferase measurement without P-5'-P (enzymatic activiOrdered By: Leigha Nelson on 08-31-2022 ALT No additional P-5'-P [Catalytic activity/Vol] 26 U/L 10-60 [facility] Serum or plasma albumin/glob ulin mass ratioOrdered By: Leigha Nelson on 08-31-2022 Albumin/Globulin [Mass ratio] 1.4 {ratio} [facility] Serum or plasma alkaline mega sphatase measurement (enzymatic activity/volume)Ordered By: Leigha Nelson on 08-31-2022 ALP [Catalytic activity/Vol] 112 U/L 32-92 [facility] Serum or plasma anion gap de terminationOrdered By: Leigha Nelson on 08-31-2022 Anion gap [Moles/Vol] 9.4 mmol/L 6.0-15.0 [facility] Serum or plasma aspartate am inotransferase measurement (enzymatic activity/volume)Ordered By: Leigha Nelson on 08-31-2022 AST [Catalytic activity/Vol] 32 U/L 10-42 [facility] Serum or plasma calcium darshan urement (mass/volume)Ordered By: Leigha Nelson on 08-31-2022 Calcium [Mass/Vol] 8.9 mg/dL 8.2-10.2 [facility] Serum or plasma carcinoembry onic antigen measurement (mass/volume)Ordered By: Leigha Nelson on 08-31-2022 Carcinoembryonic Ag [Mass/Vol] 2.5 ng/mL 0.0-3.0 [facility] Serum or plasma chloride ernestine surement (moles/volume)Ordered By: Leigha Nelson on 08-31-2022 Chloride [Moles/Vol] 98 mmol/L 95-114 [facility] Serum or plasma glucose darshan urement (mass/volume)Ordered By: Leigha Nelson on 08-31-2022 Glucose [Mass/Vol] 104 mg/dL 70-100 [facility] Comment on above: ADA recommended refe rence rangeRandom Glucose Reference Range is dependent on time and content of last meal. Glucose of more than 200 mg/dL in a nonstressed, ambulatory subject supports the diagnosis of Diabetes Mellitus. Serum or plasma potassium me asurement (moles/volume)Ordered By: Leigha Nelson on 08-31-2022 Potassium [Moles/Vol] 3.4 mmol/L 3.5-5.1 [facility] Serum or plasma sodium measu rement (moles/volume)Ordered By: Leigha Nelson on 08-31-2022 Sodium [Moles/Vol] 135 mmol/L 136-146 [facility] Serum or plasma total biliru bin measurement (mass/volume)Ordered By: Leigha Bangurajimena on 08-31-2022 Bilirubin [Mass/Vol] 0.8 mg/dL 0.3-1.2 [facility] Serum or plasma total carbon dioxide measurement (moles/volume)Ordered By: Leigha Bangurajimena on 08-31-2022 CO2 [Moles/Vol] 31.0 mmol/L 22.0-30.0 [facility] Serum or plasma urea nitroge n measurement (mass/volume)Ordered By: Leigha Talamantesrenée on 08-31-2022 Urea nitrogen [Mass/Vol] 40 mg/dL 9-23 [facility] T3, TOTAL (TRIIODOTHYRONINE) on 08-31-2022 T3, TOTAL 42 ng/dL Critically low 71-180 [facility] Comment on above: Performed By: #### F T4, PSASC #### [facility] [address] [place] [address] Dr. Benito Schwartz FREE T4on 08-30-2022 Free T4 [Mass/Vol] 0.11 ng/dL Critically low 0.76-1.46 Th [facility] Comment on above: Performed By: #### V ITAD #### [facility] [address] [address] [address] Benito Schwartz TSHon 08-30-2022 TSH 121.477 uIU/mL Critically high 0.358-3.740 [facility] Comment on above: Performed By: #### F T4 #### [facility] [address] [place] [address] Dr. Benito Schwartz Glucose Glucometer (BldC) [M ass/Vol]Ordered By: Ramesh Rascon on 07-21-2022 Glucose [Mass/Vol] 105 mg/dL [facility] Comment on above: Random Glucose Refer ence Range is dependent on time and content of last meal. Glucose of more than 200 mg/dL in a nonstressed, ambulatory subject supports the diagnosis of Diabetes Mellitus. T3, TOTAL (TRIIODOTHYRONINE) on 07-21-2022 T3, TOTAL 56 ng/dL Critically low 71-180 [facility] Comment on above: Performed By: #### F T4, PSASC #### [facility] [address] [address] [address] Benito Schwartz FREE T4on 07-20-2022 Free T4 [Mass/Vol] 0.48 ng/dL Critically low 0.76-1.46 Th [facility] Comment on above: Performed By: #### V ITAD #### [facility] [address] [place] [address] Dr. Benito Schwartz TSHon 07-20-2022 TSH 67.173 uIU/mL Critically high 0.358-3.740 [facility] Comment on above: Performed By: #### U RTPCR #### [facility] [address] [place] [address] Dr. Benito Schwartz COVID-19 SOFIAOrdered By: Lucia Rascon on 07-19-2022 SARS-CoV+SARS-CoV-2 (COVID-19) Ag IA.rapid Ql (Resp) Negative Negative [facility] Comment on above: This is a duplicate Lindsay SARS Antigen (MADHU) result to be used for statistical tracking purpose only. No Panel InformationOrdered By: Ramesh Rascon on 07-19-2022 SARS Antigen (LFIA) [facility] Albumin [Mass/volume] in Ser um or PlasmaOrdered By: Chivo Keller on 05-31-2022 Albumin [Mass/Vol] 3.9 g/dL 3.2-5.5 [facility] Basophils Auto (Bld) [#/Vol] Ordered By: Chivo Keller on 05-31-2022 Basophils (Bld) [#/Vol] 0.1 10*3/uL 0.0-0.2 [facility] Basophils/100 WBC Auto (Bld) Ordered By: Chivo Keller on 05-31-2022 Basophils/100 WBC (Bld) 0.8 % . F [facility] Blood hemoglobin measurement (mass/volume)Ordered By: Chivo Keller on 05-31-2022 Hemoglobin (Bld) [Mass/Vol] 11.1 g/dL 13.0-17.0 [facility] Blood leukocytes automated c ount (number/volume)Ordered By: Chivo Keller on 05-31-2022 WBC (Bld) [#/Vol] 8.8 10*3/uL 4.5-11.0 [facility] CT biopsyOrdered By: Danuta Kelly on 05-31-2022 Transferrin [Mass/Vol] 210 mg/dL 180-380 [facility] Creatinine (Bld) [Mass/Vol]O rdered By: Nikunj Shultz on 05-31-2022 Creatinine [Mass/Vol] 2.4 mg/dL High 0.6-1.3 [facility] Comment on above: ER/ESD physician is notified/shown all ISTAT results. Critical values may be confirmed by laboratory testing if deemed necessary by ER attending doctor. ER/ESD physician is notified/shown all ISTAT results.Critical values may be confirmed by laboratory testing ifdeemed necessary by ER attending doctor. Creatinine and Glomerular fi ltration rate.predicted panel (S/P/Bld)Ordered By: Chivo Keller on 05-31-2022 Creatinine [Mass/Vol] 2.23 mg/dL 0.64-1.27 [facility] Eosinophils Auto (Bld) [#/Vo l]Ordered By: Chivo Keller on 05-31-2022 Eosinophils (Bld) [#/Vol] 0.4 10*3/uL 0.0-0.45 [facility] Eosinophils/100 WBC Auto (Bl d)Ordered By: Chivo Keller on 05-31-2022 Eosinophils/100 WBC (Bld) 4.1 % . [facility] Erythrocyte distribution wid th Auto (RBC) [Ratio]Ordered By: Chivo Keller on 05-31-2022 Erythrocyte distribution width (RBC) [Ratio] 16.4 % 12.0-14.8 [facility] Estimated glomerular filtrat ion rate (GFR) non- AmericanOrdered By: Chivo Keller on 05-31-2022 GFR/1.73 sq M.predicted among non-blacks MDRD (S/P/Bld) [Vol rate/Area] 28 mL/Min [facility] Ferritin [Mass/volume] in Se rum or PlasmaOrdered By: Danuta Kelly on 05-31-2022 Ferritin [Mass/Vol] 96.9 ng/mL 23.9-336.2 [facility] Folate [Mass/volume] in Seru m or PlasmaOrdered By: Danuta Kelly on 05-31-2022 Folate [Mass/Vol] 17.7 ng/mL >5.9 [facility] Comment on above: Folate reference ran ge: >5.9 ng/ml The WHO technical consultation on folate and vitamin b12 deficiencies has determined that folate concentrations less than 4 ng/ml are considered deficient. Folate reference ran ge: >5.9 ng/mlThe WHO technical consultation on folate and vitamin [id number] has determined that folate concentrations lessthan 4 ng/ml are considered deficient. Globulin Calc (S) [Mass/Vol] Ordered By: Chivo Keller on 05-31-2022 Globulin (S) [Mass/Vol] 3.4 g/dL F [facility] Hematocrit Auto (Bld) [Volum e fraction]Ordered By: Chivo Keller on 05-31-2022 Hematocrit (Bld) [Volume fraction] 33.6 % 38.8-50.0 [facility] Iron [Mass/volume] in Serum or PlasmaOrdered By: Danuta Kelly on 05-31-2022 Iron [Mass/Vol] 42 ug/dL 40-160 [facility] Iron binding capacity [Mass/ volume] in Serum or PlasmaOrdered By: Danuta Kelly on 05-31-2022 Iron binding capacity [Mass/Vol] 294 ug/dL 255-450 [facility] Iron saturation [Mass Fracti on] in Serum or PlasmaOrdered By: Danuta Kelly on 05-31-2022 Iron saturation [Mass fraction] 14.0 % 20-50 [facility] - Chemistry and C hemistry - challengeOrdered By: Danuta Kelly on 05-31-2022 Cobalamin (Vitamin B12) [Mass/Vol] 463 pg/mL 180-914 [facility] - Hematology and Cell countsOrdered By: Chivo Keller on 05-31-2022 Nucleated RBC/100 WBC (Bld) [Ratio] 0.0 % 0-0.5 [facility] Lymphocytes Auto (Bld) [#/Vo l]Ordered By: Chivo Keller on 05-31-2022 Lymphocytes (Bld) [#/Vol] 1.5 10*3/uL 1.00-4.8 [facility] Lymphocytes/100 WBC Auto (Bl d)Ordered By: Chivo Keller on 05-31-2022 Lymphocytes/100 WBC (Bld) 17.2 % . [facility] MCH Auto (RBC) [Entitic mass ]Ordered By: Chivo Keller on 05-31-2022 MCH (RBC) [Entitic mass] 29.2 pg 27.5-35.2 [facility] MCHC Auto (RBC) [Mass/Vol]Or dered By: Chivo Keller on 05-31-2022 MCHC (RBC) [Mass/Vol] 33.1 g/dL 32.5-35.6 [facility] MCV Auto (RBC) [Entitic vol] Ordered By: Chivo Keller on 05-31-2022 MCV (RBC) [Entitic vol] 88.2 fL 83.5-101 F [facility] Monocytes Auto (Bld) [#/Vol] Ordered By: Chivo Keller on 05-31-2022 Monocytes (Bld) [#/Vol] 0.7 10*3/uL 0.0-0.8 [facility] Monocytes/100 WBC Auto (Bld) Ordered By: Chivo Keller on 05-31-2022 Monocytes/100 WBC (Bld) 8.0 % . F [facility] Neutrophils Auto (Bld) [#/Vo l]Ordered By: Chivo Keller on 05-31-2022 Neutrophils (Bld) [#/Vol] 6.2 10*3/uL 1.8-7.7 [facility] Neutrophils/100 WBC Auto (Bl d)Ordered By: Chivo Keller on 05-31-2022 Neutrophils/100 WBC (Bld) 69.9 % . [facility] No Panel InformationOrdered By: Nikunj Shultz on 05-31-2022 POC Estimated GFR 32 [facility] Comment on above: GFR estimated refere nce range: According to KDOQI guidelines, <60 ml/min/1.73m2 is sufficient to diagnose a patient with chronic kidney disease. POC Estimated GFR Non- Amer 26 [facility] No Panel InformationOrdered By: Chivo Keller on 05-31-2022 Estimated GFR () 34 mL/Min [facility] Comment on above: GFR estimated refere nce range: According to KDOQI guidelines, <60 ml/min/1.73m2 is sufficient to diagnose a patient with chronic kidney disease. Pharmacy Creatinine Clearance (Chem 31.14 [facility] Platelet mean volume Auto (B ld) [Entitic vol]Ordered By: Chivo Keller on 05-31-2022 Platelet mean volume (Bld) [Entitic vol] 7.0 fL 6.6-10.1 [facility] Platelets Auto (Bld) [#/Vol] Ordered By: Chivo Keller on 05-31-2022 Platelets (Bld) [#/Vol] 308 10*3/uL 150-450 [facility] Protein [Mass/volume] in Ser um or PlasmaOrdered By: Chivo Keller on 05-31-2022 Protein [Mass/Vol] 7.3 g/dL 6.1-7.9 [facility] RBC Auto (Bld) [#/Vol]Ordere d By: Chivo Keller on 05-31-2022 RBC (Bld) [#/Vol] 3.81 10*6/uL 3.90-5.60 [facility] Serum or plasma alanine paige otransferase measurement without P-5'-P (enzymatic activiOrdered By: Chivo Keller on 05-31-2022 ALT No additional P-5'-P [Catalytic activity/Vol] 17 U/L 10-60 [facility] Serum or plasma albumin/glob ulin mass ratioOrdered By: Chivo Keller on 05-31-2022 Albumin/Globulin [Mass ratio] 1.1 {ratio} [facility] Serum or plasma alkaline mega sphatase measurement (enzymatic activity/volume)Ordered By: Chivo Keller on 05-31-2022 ALP [Catalytic activity/Vol] 140 U/L 32-92 [facility] Serum or plasma aspartate am inotransferase measurement (enzymatic activity/volume)Ordered By: Chivo Keller on 05-31-2022 AST [Catalytic activity/Vol] 22 U/L 10-42 [facility] Serum or plasma calcium darshan urement (mass/volume)Ordered By: Chivo Keller on 05-31-2022 Calcium [Mass/Vol] 9.5 mg/dL 8.2-10.2 [facility] Serum or plasma carcinoembry onic antigen measurement (mass/volume)Ordered By: Chivo Keller on 05-31-2022 Carcinoembryonic Ag [Mass/Vol] 1.8 ng/mL 0.0-3.0 [facility] Serum or plasma chloride ernestine surement (moles/volume)Ordered By: Chivo Keller on 05-31-2022 Chloride [Moles/Vol] 101 mmol/L 95-114 [facility] Serum or plasma glucose darshan urement (mass/volume)Ordered By: Chivo Keller on 05-31-2022 Glucose [Mass/Vol] 108 mg/dL 70-100 [facility] Comment on above: ADA recommended refe [...] on 05-31-2022 Potassium [Moles/Vol] 4.4 mmol/L 3.5-5.1 [facility] Serum or plasma sodium measu rement (moles/volume)Ordered By: Chivo Keller on 05-31-2022 Sodium [Moles/Vol] 140 mmol/L 136-146 [facility] Serum or plasma total biliru bin measurement (mass/volume)Ordered By: Chivo Keller on 05-31-2022 Bilirubin [Mass/Vol] 0.5 mg/dL 0.3-1.2 [facility] Serum or plasma total carbon dioxide measurement (moles/volume)Ordered By: Chivo Keller on 05-31-2022 CO2 [Moles/Vol] 29.7 mmol/L 22.0-30.0 [facility] Serum or plasma urea nitroge n measurement (mass/volume)Ordered By: Chivo Keller on 05-31-2022 Urea nitrogen [Mass/Vol] 42 mg/dL 9- [facility] CBC W/DIFFon 05-26-2022 ABS IMM GRANS 0.1 10*3/uL Normal 0.0-0.2 [facility] Comment on above: Performed By: #### 5 0103 #### [facility] [address] [place] [address], [facility] ABS NEUTROPHILS 6.4 10*3/uL Normal 1.6-7.6 [facility] Comment on above: Performed By: #### 5 0103 #### [facility] [address] [place] [address], [facility] Basophils (Bld) [#/Vol] 0.0 10*3/uL Normal 0.0-0.2 [facility] Comment on above: Performed By: #### 5 0103 #### [facility] [address] [place] [address], [facility] Basophils/100 WBC (Bld) 0.4 % Normal 0.0-1.0 [facility] Comment on above: Performed By: #### 5 0103 #### [facility] [address] [place] [address], [facility] Eosinophils (Bld) [#/Vol] 0.4 10*3/uL Normal 0.0-0.5 [facility] Comment on above: Performed By: #### 5 0103 #### [facility] [address] [facility] [place] [address], [facility] Eosinophils/100 WBC (Bld) 4.3 % Normal 0.0-6.0 [facility] Comment on above: Performed By: #### 5 0103 #### [facility] [address] [facility]. [address] Erythrocyte distribution width (RBC) [Ratio] 15.9 % High 11.5-15.0 [facility] Comment on above: Performed By: #### 5 0103 #### [facility] [address] [facility] Hematocrit (Bld) [Volume fraction] 31.6 % Low 39.0-50.0 [facility] Comment on above: Performed By: #### 5 0103 #### [facility] [address] [facility]. [address] Hemoglobin (Bld) [Mass/Vol] 10.0 g/dL Low 13.0-17.0 [facility] Comment on above: Performed By: #### 5 0103 #### [facility] [address] [place] [address], [facility] IMMATURE GRANS 0.8 % Normal 0.0-1.0 [facility] Comment on above: Performed By: #### 5 0103 #### [facility] [address] [facility] [place] [address], [facility] Lymphocytes (Bld) [#/Vol] 1.6 10*3/uL Normal 1.2-4.0 [facility] Comment on above: Performed By: #### 5 3 #### [facility] [address] [facility] [place] [address], [facility] Lymphocytes/100 WBC (Bld) 16.8 % Low 20.0-45.0 [facility] Comment on above: Performed By: #### 5 0103 #### [facility] [address] [place] [address], [facility] MCH (RBC) [Entitic mass] 28.7 pg Normal 27.0-33.0 [facility] Comment on above: Performed By: #### 5 0103 #### [facility] [address] [facility] [place] [address], [facility] MCHC (RBC) [Mass/Vol] 31.6 g/dL Low 32.0-35.0 [facility] Comment on above: Performed By: #### 5 0103 #### [facility] [address] [place] [address], [facility] MCV (RBC) [Entitic vol] 90.5 fL Normal 82.0-98.0 [facility] Comment on above: Performed By: #### 5 0103 #### [facility] [address] [place] [address], [facility] Monocytes (Bld) [#/Vol] 0.8 10*3/uL Normal 0.1-1.0 [facility] Comment on above: Performed By: #### 5 0103 #### [facility] [address] [place] [address], [facility] MONOS 9.0 % Normal 5.0-12.0 [facility] Comment on above: Performed By: #### 5 0103 #### [facility] [address] [place] [id number], [facility] Neutrophils/100 WBC (Bld) 68.7 % Normal 40.0-72.0 [facility] Comment on above: Performed By: #### 5 3 #### [facility] [address] [place] [id number], [facility] Nucleated RBC/100 WBC (Bld) [Ratio] 0 % Normal 0-0 [facility] Comment on above: Performed By: #### 5 0103 #### [facility] [address] [facility] [place] [address], [facility] PLAT CNT 292 10*3/uL Normal 150-400 [facility] Comment on above: Performed By: #### 5 0103 #### [facility] [address] [place] [address], [facility] RBC (Bld) [#/Vol] 3.49 10*6/uL Low 4.20-5.70 [facility] Comment on above: Performed By: #### 5 0103 #### [facility] [address] [place] [place] [address], [facility] WBC (Bld) [#/Vol] 9.29 10*3/uL Normal 4.00-10.60 [facility] Comment on above: Performed By: #### 5 0103 #### [facility] [address] [place] [place] [address], [facility] IMMUNOGLOBULIN Jovany 2 [place] Normal [facility] Comment on above: Result Comment: Test Performed by [employer] [address] [place] [address] - Released 05/27/2022 12:45 IMMUNOGLOBULIN E 308 IU/mL High <101 [facility] THYROID-STIMULATING IMMUNOGL OBULINon 05-14-2022 Thyroid Sim Immunoglobulin <0.10 Normal 0.00-0.55 [facility] Comment on above: Performed By: #### C BC #### [facility] [address] [address] [address] Benito Schwartz THYROTROPIN RECEPTOR ABon Thyrotropin Receptor Ab, Serum <1.10 Normal 0.00-1.75 [facility] Comment on above: Performed By: #### C BC #### [facility] [address] [address] [address] Benito Schwartz PTH INTACTon 05-13-2022 PTH, Intact 18 pg/mL Normal 15-65 [facility] Comment on above: Performed By: #### C BC #### [facility] [address] [address] [address] Benito Schwartz T3, TOTAL (TRIIODOTHYRONINE) on 05-13-2022 T3, TOTAL 80 ng/dL Normal 71-180 [facility] Comment on above: Performed By: #### U RTPCR #### [facility] [address] [address] [address] Benito Schwartz VIT D 25-OH LABCORPon 2021 Vitamin D, 25-Hydroxy 84.3 ng/mL Normal 30.0-100.0 [facility] Comment on above: Result Comment: Randi min D deficiency has been defined by the [employer] of [employer] and an Endocrine Society practice guideline as a level of serum 25-OH vitamin D less than 20 ng/mL (1,2). The Endocrine Society went on to further define vitamin D insufficiency as a level between 21 and 29 ng/mL (2). 1. IOM ([place] of Medicine). 2010. Dietary reference intakes for calcium and D. [place]: The National Academies Press. 2. Annamarie MF, Milena [place], Sweta-Andrea BURGESS, et al. Evaluation, treatment, and prevention of vitamin D deficiency: an Endocrine Society clinical practice guideline. JCEM. 2010; 96(7):1911-30. Performed By: #### U RTPCR #### [facility] [address] [address] [address] Benito Schwartz CBC AUTO DIFFon 05-12-2022 BASO # 0.0 103/ul Normal 0.0-0.1 [facility] Comment on above: Performed By: #### C BC #### [facility] [address] [address] [address] Benito Schwartz Basophils/100 WBC (Bld) 0.2 % Normal 0.2-2.0 [facility] Comment on above: Performed By: #### C BC #### [facility] [address] [address] [address] Benito Schwartz EO # 0.4 103/ul Normal 0.0-0.7 [facility] Comment on above: Performed By: #### C BC #### [facility] [address] [address] [address] Benito Schwartz Eosinophils/100 WBC (Bld) 4.4 % Normal 0.9-7.0 [facility] Comment on above: Performed By: #### C BC #### [facility] [address] [address] [address] Benito Schwartz Erythrocyte distribution width (RBC) [Ratio] 15.0 % Normal 11.0-15.0 [facility] Comment on above: Performed By: #### C BC #### [facility] [address] [address] [address] Benito Schwartz Hematocrit (Bld) [Volume fraction] 29.8 % Critically low 42.0-54.0 [facility] Comment on above: Performed By: #### C BC #### [facility] [address] [place] [address] Dr. Benito Schwartz Hemoglobin (Bld) [Mass/Vol] 9.7 g/dL Critically low 14.0-18.0 [facility] Comment on above: Performed By: #### C BC #### [facility] [address] [place] [address] Dr. Benito Schwartz IG # 0.06 10e3/ul Critically high 0.00-0.03 [facility] Comment on above: Performed By: #### C BC #### [facility] [address] [place] [address] Dr. Benito Schwartz IG % 0.7 % Critically high 0.0-0.5 [facility] Comment on above: Performed By: #### C BC #### [facility] [address] [address] [address] Benito Schwartz LYMPH # 1.9 103/ul Normal 1.2-3.8 [facility] Comment on above: Performed By: #### C BC #### [facility] [address] [place] [address] Dr. Benito Schwartz Lymphocytes/100 WBC (Bld) 21.1 % Normal 20.5-60.0 [facility] Comment on above: Performed By: #### C BC #### [facility] [address] [place] [address] Dr. Benito Schwartz MANUAL DIFF REQ NO Normal [facility] Comment on above: Performed By: #### C BC #### [facility] [address] [place] [address] Dr. Benito Schwartz MCH (RBC) [Entitic mass] 29.0 pg Normal 25.9-34.0 [facility] Comment on above: Performed By: #### C BC #### [facility] [address] [place] [address] Dr. Benito Schwartz MCHC (RBC) [Mass/Vol] 32.6 g/dL Normal 29.9-35.2 [facility] Comment on above: Performed By: #### C BC #### [facility] [address] [place] [address] Dr. Benito Schwartz MCV (RBC) [Entitic vol] 89.0 fL Normal 80.0-94.0 [facility] Comment on above: Performed By: #### C BC #### [facility] [address] [place] [address] Dr. Benito Schwartz MONO # 0.9 103/ul Critically high 0.3-0.8 [facility] Comment on above: Performed By: #### C BC #### [facility] [address] [place] [address] Dr. Benito Schwartz Monocytes/100 WBC (Bld) 9.9 % Normal 1.7-12.0 [facility] Comment on above: Performed By: #### C BC #### [facility] [address] [place] [address] Dr. Benito Schwartz NEUT # 5.8 103/ul Normal 1.4-6.5 [facility] Comment on above: Performed By: #### C BC #### [facility] [address] [place] [address] Dr. Benito Schwartz Neutrophils/100 WBC (Bld) 63.7 % Normal 43.0-75.0 [facility] Comment on above: Performed By: #### C BC #### [facility] [address] [address] [address] Benito Schwartz Platelet mean volume (Bld) [Entitic vol] 8.7 fL Critically low 9.5-13.5 [facility] Comment on above: Performed By: #### C BC #### [facility] [address] [place] [address] Dr. Benito Schwartz PLT 253 103/ul Normal 150-450 [facility] Comment on above: Performed By: #### C BC #### [facility] [address] [place] [address] Dr. Benito Schwartz RBC 3.35 106/ul Critically low 4.70-6.10 [facility] Comment on above: Performed By: #### C BC #### [facility] [address] [place] [address] Dr. Benito Schwartz WBC 9.1 103/ul Normal 4.0-11.0 [facility] Comment on above: Performed By: #### C BC #### [facility] [address] [place] [address] Dr. Benito Schwartz FREE T4on 05-12-2022 Free T4 [Mass/Vol] 1.25 ng/dL Normal 0.76-1.46 [facility] Comment on above: Performed By: #### V ITAD #### [facility] [address] [place] [address] Dr. Benito Schwartz MAGNESIUMon 05-12-2022 Magnesium [Mass/Vol] 2.1 mg/dL Normal 1.8-2.4 [facility] Comment on above: Performed By: #### F T4 #### [facility] [address] [place] [address] Dr. Benito Schwartz PHOSPHORUSon 05-12-2022 Phosphate [Mass/Vol] 4.2 mg/dL Normal 2.6-4.7 [facility] Comment on above: Performed By: #### F T4 #### [facility] [address] [place] [address] Dr. Benito Schwartz PROF CHEM 8 (BAS METB)on Anion gap [Moles/Vol] 13.4 mmol/L Normal [facility] Comment on above: Performed By: #### F T4 #### [facility] [address] [address] [address] Benito Schwartz Calcium [Mass/Vol] 9.1 mg/dL Normal 8.5-10.1 [facility] Comment on above: Performed By: #### F T4 #### [facility] [address] [address] [address] Benito Schwartz Chloride [Moles/Vol] 103 mmol/L Normal 98-107 [facility] Comment on above: Performed By: #### F T4 #### [facility] [address] [place] [address] Dr. Benito Schwartz CO2 [Moles/Vol] 28.6 mmol/L Normal 21.0-32.0 [facility] Comment on above: Performed By: #### F T4 #### [facility] [address] [address] [address] Benito Schwartz Creatinine [Mass/Vol] 2.30 mg/dL Critically high 0.70-1.30 [facility] Comment on above: Performed By: #### F T4 #### [facility] [address] [place] [address] Dr. Benito Schwartz EGFR-AF MARSHALLESE 33 mL/min/1.73m2 Critically low >=60 [facility] Comment on above: Performed By: #### F T4 #### [facility] [address] [address] [address] Benito Schwartz EGFR-NON AF MARSHALLESE 27 mL/min/1.73m2 Critically low >=60 [facility] Comment on above: Performed By: #### F T4 #### [facility] [address] [place] [address] Dr. Benito Schwartz Glucose [Mass/Vol] 123 mg/dL Critically high 74-106 [facility] Comment on above: Performed By: #### F T4 #### [facility] [address] [place] [address] Dr. Benito Schwartz Potassium [Moles/Vol] 4.0 mmol/L Normal 3.5-5.1 [facility] Comment on above: Performed By: #### F T4 #### [facility] [address] [place] [address] Dr. Benito Schwartz Sodium [Moles/Vol] 141 mmol/L Normal 136-145 [facility] Comment on above: Performed By: #### F T4 #### [facility] [address] [place] [address] Dr. Benito Schwartz Urea nitrogen [Mass/Vol] 51.0 mg/dL Critically high 7.0-18 .0 [facility] Comment on above: Performed By: #### F T4 #### [facility] [address] [place] [address] Dr. Benito Schwartz Urea nitrogen/Creatinine [Mass ratio] 22.2 mg/mg Normal [facility] Comment on above: Performed By: #### F T4 #### [facility] [address] [place] [address] Dr. Benito Schwartz TSHon 05-12-2022 TSH Qn m[IU]/L Critically low 0.358-3.740 [facility] Comment on above: Performed By: #### C BC #### [facility] [address] [place] [address] Dr. Benito Schwartz UA RANDOMon 05-12-2022 Bilirubin Ql (U) Negative Normal NEGATIVE [facility] Comment on above: Performed By: #### U RTPCR #### [facility] [address] [place] [address] Dr. Benito Schwartz Clarity (U) CLEAR Normal CLEAR [facility] Comment on above: Performed By: #### U RTPCR #### [facility] [address] [place] [address] Dr. Benito Schwartz Color (U) LT. YELLOW Normal YELLOW [facility] Comment on above: Performed By: #### U RTPCR #### [facility] [address] [place] [address] Dr. Benito Schwartz Glucose Ql (U) Negative Normal NEGATIVE [facility] Comment on above: Performed By: #### U RTPCR #### [facility] [address] [place] [address] Dr. Benito Schwartz Hemoglobin Ql (U) Negative Normal NEGATIVE [facility] Comment on above: Performed By: #### U RTPCR #### [facility] [address] [place] [address] Dr. Benito Schwartz Ketones Ql (U) Negative Normal NEGATIVE [facility] Comment on above: Performed By: #### U RTPCR #### [facility] [address] [place] [address] Dr. Benito Schwartz LEUKOCYTES Negative Normal NEGATIVE [facility] Comment on above: Performed By: #### U RTPCR #### [facility] [address] [place] [address] Dr. Benito Schwartz Nitrite Ql (U) Negative Normal NEGATIVE [facility] Comment on above: Performed By: #### U RTPCR #### [facility] [address] [place] [address] Dr. Benito Schwartz pH (U) 5.5 [pH] Normal 5-9 [facility] Comment on above: Performed By: #### U RTPCR #### [facility] [address] [place] [address] Dr. Benito Schwartz SPEC GRAVITY 1.010 Normal 1.005-<=1.02 5 [facility] Comment on above: Performed By: #### U RTPCR #### [facility] [address] [place] [address] Dr. Benito Schwartz UA PROTEIN Negative Normal NEGATIVE/ TRACE [facility] Comment on above: Performed By: #### U RTPCR #### [facility] [address] [place] [address] Dr. Benito Schwartz Urobilinogen Qn (U) 0.2 {Jagruti'U}/dL Normal 0.2 - 1. 0 [facility] Comment on above: Performed By: #### U RTPCR #### [facility] [address] [place] [address] Dr. Benito Schwartz URINE T PROTEIN CREAT RATIOo n 05-12-2022 Protein (U) [Mass/Vol] 18.3 mg/dL Critically high <=12.0 [facility] Comment on above: Performed By: #### U RTPCR #### [facility] [address] [place] [address] Dr. Benito Schwartz UR PROT CREAT RAT 0.39 Normal [facility] Comment on above: Performed By: #### U RTPCR #### [facility] [address] [place] [address] Dr. Benito Schwartz URINE CREAT 47.44 mg/dL Normal 20.00-300.00 [facility] Comment on above: Performed By: #### U RTPCR #### [facility] [address] [place] [address] Dr. Benito Schwartz HEMOGLOBINon 05-10-2022 Hemoglobin (Bld) [Mass/Vol] 9.6 g/dL Critically low 14.0-18.0 [facility] Comment on above: Performed By: #### F T4, PSASC #### [facility] [address] [place] [address] Dr. Benito Schwartz NM THY SCAN W Lenin 04-28-20 NM THY SCAN W UPT EXAMINATION: [...] by: JJ HI Date: 2022-04-28 09:05 Normal [facility] T3, TOTAL (TRIIODOTHYRONINE) on 04-09-2022 T3, TOTAL 167 ng/dL Normal 71-180 [facility] Comment on above: Performed By: #### B 12FOL, FETIBC #### [facility] [address] [place] [address] Dr. Benito Schwartz FREE T3on 04-08-2022 FREE T3 6.07 pg/mlL Critically high 2.18-3.98 [facility] Comment on above: Performed By: #### T SH, FT3, BMP #### [facility] [address] [place] [address] Dr. Benito Schwartz FREE T4on 04-08-2022 Free T4 [Mass/Vol] 2.62 ng/dL Critically high 0.76-1.46 [facility] Comment on above: Performed By: #### T KRISTOPHER, FT3, BMP #### [facility] [address] [place] [address] Dr. Benito Schwartz PROF CHEM 8 (BAS METB)on Anion gap [Moles/Vol] 13.5 mmol/L Normal [facility] Comment on above: Performed By: #### B 12FOL, FETIBC #### [facility] [address] [place] [address] Dr. Benito Schwartz Calcium [Mass/Vol] 9.9 mg/dL Normal 8.5-10.1 [facility] Comment on above: Performed By: #### B 12FOL, FETIBC #### [facility] [address] [place] [address] Dr. Benito Schwartz Chloride [Moles/Vol] 105 mmol/L Normal 98-107 [facility] Comment on above: Performed By: #### B 12FOL, FETIBC #### [facility] [address] [place] [address] Dr. Benito Schwartz CO2 [Moles/Vol] 26.5 mmol/L Normal 21.0-32.0 [facility] Comment on above: Performed By: #### B 12FOL, FETIBC #### [facility] [address] [place] [address] Dr. Benito Schwartz Creatinine [Mass/Vol] 2.33 mg/dL Critically high 0.70-1.30 [facility] Comment on above: Performed By: #### B 12FOL, FETIBC #### [facility] [address] [place] [address] Dr. Benito Schwartz EGFR-AF MARSHALLESE 33 mL/min/1.73m2 Critically low >=60 [facility] Comment on above: Performed By: #### B 12FOL, FETIBC #### [facility] [address] [address] [address] Benito Schwartz EGFR-NON AF MARSHALLESE 27 mL/min/1.73m2 Critically low >=60 [facility] Comment on above: Performed By: #### B 12FOL, FETIBC #### [facility] [address] [address] [address] Benito Schwartz Glucose [Mass/Vol] 104 mg/dL Normal 74-106 [facility] Comment on above: Performed By: #### B 12FOL, FETIBC #### [facility] [address] [place] [address] Dr. Benito Schwartz Potassium [Moles/Vol] 5.0 mmol/L Normal 3.5-5.1 [facility] Comment on above: Performed By: #### B 12FOL, FETIBC #### [facility] [address] [place] [address] Dr. Benito Schwartz Sodium [Moles/Vol] 140 mmol/L Normal 136-145 [facility] Comment on above: Performed By: #### B 12FOL, FETIBC #### [facility] [address] [place] [address] Dr. Benito Schwartz Urea nitrogen [Mass/Vol] 60.0 mg/dL Critically high 7.0-18 .0 [facility] Comment on above: Performed By: #### B 12FOL, FETIBC #### [facility] [address] [place] [address] Dr. Benito Schwartz Urea nitrogen/Creatinine [Mass ratio] 25.8 mg/mg Normal [facility] Comment on above: Performed By: #### B 12FOL, FETIBC #### [facility] [address] [place] [address] Dr. Benito Schwartz TSHon 04-08-2022 TSH Qn m[IU]/L Critically low 0.358-3.740 [facility] Comment on above: Performed By: #### T SH, FT3, BMP #### [facility] [address] [address] [address] Benito Schwartz BASIC METABOLIC PANELon 03-16 Calcium [Mass/Vol] 9.1 mg/dL Normal 8.6-10.3 [facility] Comment on above: Order Comment: No: D o not add to previous draw Performed By: #### 1 69, 80630 #### [facility] [address] [place] [address], [place] Chloride [Moles/Vol] 106 mmol/L Normal 98-107 [facility] Comment on above: Order Comment: No: D o not add to previous draw Performed By: #### 1 69, [id number] #### [facility] [address] [place] [address], [place] CO2 [Moles/Vol] 25 mmol/L Normal 21-31 [facility] Comment on above: Order Comment: No: D o not add to previous draw Performed By: #### 1 69, 89078 #### [facility] [address] [place] [address], [place] Creatinine [Mass/Vol] 2.12 mg/dL High 0.70-1.30 [facility] Comment on above: Order Comment: No: D o not add to previous draw Performed By: #### 1 69, [id number] #### [facility] [address] [place] [address], [place] eGFR- 37 ml/min/1.73sq m Abnormal >60 [facility] Comment on above: Order Comment: No: D o not add to previous draw Result Comment: Calc ulation may not be valid for patients over 70 years Performed By: #### 1 69, 03056 #### [facility] [address] [place] [address], [place] eGFR- non- 30 ml/min/1.73sq m Abnormal >60 [facility] Comment on above: Order Comment: No: D o not add to previous draw Result Comment: Calc ulation may not be valid for patients over 70 years Performed By: #### 1 69, 68640 #### [facility] [address] [place] [address], [place] Glucose [Mass/Vol] 93 mg/dL Normal 70-100 [facility] Comment on above: Order Comment: No: D o not add to previous draw Performed By: #### 1 69, 66002 #### [facility] [address] [place] [address], [place] Potassium [Moles/Vol] 3.9 mmol/L Normal 3.5-5.1 [facility] Comment on above: Order Comment: No: D o not add to previous draw Performed By: #### 1 69, 28527 #### [facility] [address] [place] [address], [place] Sodium [Moles/Vol] 141 mmol/L Normal 136-145 [facility] Comment on above: Order Comment: No: D o not add to previous draw Performed By: #### 1 69, [id number] #### [facility] [address] [place] [address], [place] Urea nitrogen [Mass/Vol] 56 mg/dL High 7-25 [facility] Comment on above: Order Comment: No: D o not add to previous draw Performed By: #### 1 69, 34903 #### [facility] [address] [place] [address], [place] CBC COMPLETE BLOOD COUNTon 0 - Erythrocyte distribution width (RBC) [Ratio] 13.6 % Normal 11.5-15.0 [facility] Comment on above: Order Comment: No: D o not add to previous draw Performed By: #### 5 0103 #### [facility] [address] [place] [address], [place] Hematocrit (Bld) [Volume fraction] 26.2 % Low 39.0-50.0 [facility] Comment on above: Order Comment: No: D o not add to previous draw Performed By: #### 5 0103 #### [facility] [address] [place] [address], [facility] Hemoglobin (Bld) [Mass/Vol] 8.7 g/dL Low 13.0-17.0 [facility] Comment on above: Order Comment: No: D o not add to previous draw Performed By: #### 5 0103 #### [facility] [address] [place] [address], [facility] MCH (RBC) [Entitic mass] 29.3 pg Normal 27.0-33.0 [facility] Comment on above: Order Comment: No: D o not add to previous draw Performed By: #### 5 0103 #### [facility] [address] MCHC (RBC) [Mass/Vol] 33.2 g/dL Normal 32.0-35.0 [facility] Comment on above: Order Comment: No: D o not add to previous draw Performed By: #### 5 0103 #### [facility] [address] [place] [address], [facility] MCV (RBC) [Entitic vol] 88.2 fL Normal 82.0-98.[address] [facility] Comment on above: Order Comment: No: D o not add to previous draw Performed By: #### 5 0103 #### [facility] [address] [place] [address], [facility] Nucleated RBC/100 WBC (Bld) [Ratio] 0 % Normal 0-0 [facility] Comment on above: Order Comment: No: D o not add to previous draw Performed By: #### 5 0103 #### [facility] [address] [place] [address], [facility] PLAT CNT 190 10*3/uL Normal 150-400 [facility] Comment on above: Order Comment: No: D o not add to previous draw Performed By: #### 5 0103 #### [facility] [address] [place] [address], [facility] RBC (Bld) [#/Vol] 2.97 10*6/uL Low 4.20-5.70 [facility] Comment on above: Order Comment: No: D o not add to previous draw Performed By: #### 5 0103 #### [facility] [address] [place] [address], [facility] WBC (Bld) [#/Vol] 5.20 10*3/uL Normal 4.00-10.60 [facility] Comment on above: Order Comment: No: D o not add to previous draw Performed By: #### 5 0103 #### [facility] [address] MAGNESIUM BLOODon 04-02-2022 Magnesium [Mass/Vol] 2.2 mg/dL Normal 1.9-2.7 [facility] Comment on above: Order Comment: No: D o not add to previous draw Performed By: #### 1 0070, 05208 #### [facility] [address] [place] [address], [facility] POC GLUCOSE LABon 04-02-2022 Glucose [Mass/Vol] 99 mg/dL Normal 70-100 [facility] Comment on above: Performed By: #### 5 0608 #### [facility] [address] [place] [address], [facility] BASIC METABOLIC PANELon 03-16 Calcium [Mass/Vol] 9.1 mg/dL Normal 8.6-10.3 [facility] Comment on above: Order Comment: No: D o not add to previous draw Performed By: #### 5 0608 #### [facility] [address] [place] [address], [place] Chloride [Moles/Vol] 106 mmol/L Normal 98-107 [facility] Comment on above: Order Comment: No: D o not add to previous draw Performed By: #### 5 0608 #### [facility] [address] [place] [address], [place] CO2 [Moles/Vol] 25 mmol/L Normal 21-31 [facility] Comment on above: Order Comment: No: D o not add to previous draw Performed By: #### 5 0608 #### [facility] [address] [place] [address], [place] Creatinine [Mass/Vol] 2.07 mg/dL High 0.70-1.30 [facility] Comment on above: Order Comment: No: D o not add to previous draw Performed By: #### 5 0608 #### [facility] [address] [place] [address], [facility] eGFR- 38 ml/min/1.73sq m Abnormal >60 [facility] Comment on above: Order Comment: No: D o not add to previous draw Result Comment: Calc ulation may not be valid for patients over 70 years Performed By: #### 5 0608 #### [facility] [address] [place] [address], [place] eGFR- non- 31 ml/min/1.73sq m Abnormal >60 [facility] Comment on above: Order Comment: No: D o not add to previous draw Result Comment: Calc ulation may not be valid for patients over 70 years Performed By: #### 5 0608 #### [facility] [address] [place] [address], [place] Glucose [Mass/Vol] 94 mg/dL Normal 70-100 [facility] Comment on above: Order Comment: No: D o not add to previous draw Performed By: #### 5 0608 #### [facility] [address] [place] [address], [place] Potassium [Moles/Vol] 3.9 mmol/L Normal 3.5-5.1 [facility] Comment on above: Order Comment: No: D o not add to previous draw Performed By: #### 5 0608 #### [facility] [address] [place] [address], [place] Sodium [Moles/Vol] 144 mmol/L Normal 136-145 [facility] Comment on above: Order Comment: No: D o not add to previous draw Performed By: #### 5 0608 #### [facility] [address] [place] [address], [facility] Urea nitrogen [Mass/Vol] 54 mg/dL High 7-25 [facility] Comment on above: Order Comment: No: D o not add to previous draw Performed By: #### 5 0608 #### [facility] [address] [place] [id number], [facility] CBC COMPLETE BLOOD COUNTon 0 - Erythrocyte distribution width (RBC) [Ratio] 13.5 % Normal 11.5-15.0 [facility] Comment on above: Order Comment: No: D o not add to previous draw Performed By: #### 5 0608 #### [facility] [address] [place] [address], [facility] Hematocrit (Bld) [Volume fraction] 27.5 % Low 39.0-50.0 [facility] Comment on above: Order Comment: No: D o not add to previous draw Performed By: #### 5 0608 #### [facility] [address] [place] [address], [place] Hemoglobin (Bld) [Mass/Vol] 8.9 g/dL Low 13.0-17.0 [facility] Comment on above: Order Comment: No: D o not add to previous draw Performed By: #### 5 0608 #### [facility] [address] [place] [address], [place] MCH (RBC) [Entitic mass] 29.2 pg Normal 27.0-33.0 [facility] Comment on above: Order Comment: No: D o not add to previous draw Performed By: #### 5 0608 #### [facility] [address] [place] [address], [facility] MCHC (RBC) [Mass/Vol] 32.4 g/dL Normal 32.0-35.0 [facility] Comment on above: Order Comment: No: D o not add to previous draw Performed By: #### 5 0608 #### [facility] [address] [place] [id number], [facility] MCV (RBC) [Entitic vol] 90.2 fL Normal 82.0-98.0 [facility] Comment on above: Order Comment: No: D o not add to previous draw Performed By: #### 5 0608 #### [facility] [address] [place] [address], [facility] Nucleated RBC/100 WBC (Bld) [Ratio] 0 % Normal 0-0 [facility] Comment on above: Order Comment: No: D o not add to previous draw Performed By: #### 5 0608 #### [facility] [address] [place] [id number], [facility] PLAT CNT 213 10*3/uL Normal 150-400 [facility] Comment on above: Order Comment: No: D o not add to previous draw Performed By: #### 5 0608 #### [facility] [address] [place] [id number], [facility] RBC (Bld) [#/Vol] 3.05 10*6/uL Low 4.20-5.70 [facility] Comment on above: Order Comment: No: D o not add to previous draw Performed By: #### 5 0608 #### [facility] [address] [place] [id number], [facility] WBC (Bld) [#/Vol] 6.02 10*3/uL Normal 4.00-10.60 [facility] Comment on above: Order Comment: No: D o not add to previous draw Performed By: #### 5 0608 #### [facility] [address] [place] [address], [facility] Cardiovascular Lab Reporton 04-01-2022 Cardiovascular Lab Report [facility] Patient Name: Nas Ren [facility] MR #: [id number] Physician: Sriram Rick, Department of M.D. Medicine Service Date: 03/31/2022 Division of Birthdate: 1940 Cardiology Room #: 3AB [id number] Adult Cardiovascular Services [facility] [address] [place] [address] Cardiovascular Laboratory Report FINAL IMPRESSIONS: 1. Moderately [...] right internal jugular vein was obtained. A 6-[place] 11 cm sheath was inserted without difficulty. [...] P/Sriram Rick M.D. Date Trans: 04/01/2022 02:03 A/hans [id number] cc: Arnie Linda D.O. [address] [place] [id number] Normal [facility] HEMOGLOBIN A1Con 04-01-2022 Glucose [Moles/Vol] 137 mmol/L Normal [facility] Comment on above: Order Comment: If no t done in EDNo: Do not add to previous draw Performed By: #### 5 0103 #### [facility] [address] [place] [address], [facility] HbA1c (Bld) [Mass fraction] 6.4 % High 4.0-6.0 [facility] Comment on above: Order Comment: If no t done in EDNo: Do not add to previous draw Performed By: #### 5 0103 #### [facility] [address] [place] [address], [facility] MAGNESIUM BLOODon 04-01-2022 Magnesium [Mass/Vol] 2.2 mg/dL Normal 1.9-2.7 [facility] Comment on above: Order Comment: No: D o not add to previous draw Performed By: #### 5 0608 #### [facility] [address] [place] [address], [place] POC GLUCOSE LABon 04-01-2022 Glucose [Mass/Vol] 114 mg/dL High 70-100 [facility] Comment on above: Performed By: #### 5 0103 #### [facility] [address] [place] [address], [place] Glucose [Mass/Vol] 117 mg/dL High 70-100 [facility] Comment on above: Performed By: #### 5 0608 #### [facility] [address] [place] [address], [place] Glucose [Mass/Vol] 139 mg/dL High 70-100 [facility] Comment on above: Performed By: #### 5 0608 #### [facility] [address] [place] [address], [place] Glucose [Mass/Vol] 98 mg/dL Normal 70-100 [facility] Comment on above: Performed By: #### 5 0608 #### [facility] [address] [place] [address], [place] BASIC METABOLIC PANELon 03-16 Calcium [Mass/Vol] 9.1 mg/dL Normal 8.6-10.3 [facility] Comment on above: Order Comment: No: D o not add to previous draw Performed By: #### 4 4396, 12987, 08700, 94579, 23680 #### [facility] [address] [place] [address], [place] Chloride [Moles/Vol] 104 mmol/L Normal 98-107 [facility] Comment on above: Order Comment: No: D o not add to previous draw Performed By: #### 4 4396, 85672, 95171, 60637, 92769 #### [facility] [address] [place] [address], [place] CO2 [Moles/Vol] 27 mmol/L Normal 21-31 [facility] Comment on above: Order Comment: No: D o not add to previous draw Performed By: #### 4 4396, 63969, 84981, 85971, 34909 #### [facility] [address] [place] [address], [place] Creatinine [Mass/Vol] 2.59 mg/dL High 0.70-1.30 [facility] Comment on above: Order Comment: No: D o not add to previous draw Performed By: #### 4 4396, 86310, 90277, 49964, 95901 #### [facility] [address] [place] [address], [place] eGFR- 29 ml/min/1.73sq m Abnormal >60 [facility] Comment on above: Order Comment: No: D o not add to previous draw Result Comment: Calc ulation may not be valid for patients over 70 years Performed By: #### 4 4396, 32108, 59220, 25439, 50726 #### [facility] [address] [place] [address], [place] eGFR- non- 24 ml/min/1.73sq m Abnormal >60 [facility] Comment on above: Order Comment: No: D o not add to previous draw Result Comment: Calc ulation may not be valid for patients over 70 years Performed By: #### 4 4396, 63014, 24268, 78002, 84199 #### [facility] [address] [place] [address], [place] Glucose [Mass/Vol] 90 mg/dL Normal 70-100 [facility] Comment on above: Order Comment: No: D o not add to previous draw Performed By: #### 4 4396, 01974, 75379, 64556, 26417 #### [facility] [address] [place] [address], [place] Potassium [Moles/Vol] 4.2 mmol/L Normal 3.5-5.1 [facility] Comment on above: Order Comment: No: D o not add to previous draw Performed By: #### 4 4396, 46287, 73135, 85910, 43482 #### [facility] [address] [place] [id number], [facility] Sodium [Moles/Vol] 141 mmol/L Normal 136-145 [facility] Comment on above: Order Comment: No: D o not add to previous draw Performed By: #### 4 4396, 92687, 49833, 02751, 90356 #### [facility] [address] [place] [address], [facility] Urea nitrogen [Mass/Vol] 55 mg/dL High 7-25 [facility] Comment on above: Order Comment: No: D o not add to previous draw Performed By: #### 4 4396, 06225, 40975, 08016, 65734 #### [facility] [address] [place] [id number], [facility] CBC COMPLETE BLOOD COUNTon 0 - Erythrocyte distribution width (RBC) [Ratio] 13.6 % Normal 11.5-15.0 [facility] Comment on above: Order Comment: No: D o not add to previous draw Performed By: #### 5 0608 #### [facility] [address] [place] [address], [facility] Hematocrit (Bld) [Volume fraction] 27.1 % Low 39.0-50.0 [facility] Comment on above: Order Comment: No: D o not add to previous draw Performed By: #### 5 0608 #### [facility] [address] [place] [address], [place] Hemoglobin (Bld) [Mass/Vol] 8.7 g/dL Low 13.0-17.0 [facility] Comment on above: Order Comment: No: D o not add to previous draw Performed By: #### 5 0608 #### [facility] [address] [place] [address], [facility] MCH (RBC) [Entitic mass] 28.8 pg Normal 27.0-33.0 [facility] Comment on above: Order Comment: No: D o not add to previous draw Performed By: #### 5 0608 #### [facility] [address] [place] [id number], [facility] MCHC (RBC) [Mass/Vol] 32.1 g/dL Normal 32.0-35.0 [facility] Comment on above: Order Comment: No: D o not add to previous draw Performed By: #### 5 0608 #### [facility] [address] [place] [address], [facility] MCV (RBC) [Entitic vol] 89.7 fL Normal 82.0-98.0 [facility] Comment on above: Order Comment: No: D o not add to previous draw Performed By: #### 5 0608 #### [facility] [address] [place] [address], [facility] Nucleated RBC/100 WBC (Bld) [Ratio] 0 % Normal 0-0 [facility] Comment on above: Order Comment: No: D o not add to previous draw Performed By: #### 5 0608 #### [facility] [address] [place] [id number], [facility] PLAT CNT 184 10*3/uL Normal 150-400 [facility] Comment on above: Order Comment: No: D o not add to previous draw Performed By: #### 5 0608 #### [facility] [address] [place] [id number], [facility] RBC (Bld) [#/Vol] 3.02 10*6/uL Low 4.20-5.70 [facility] Comment on above: Order Comment: No: D o not add to previous draw Performed By: #### 5 0608 #### [facility] [address] [place] [address], [place] WBC (Bld) [#/Vol] 5.93 10*3/uL Normal 4.00-10.60 [facility] Comment on above: Order Comment: No: D o not add to previous draw Performed By: #### 5 0608 #### [facility] [address] [place] [address], [facility] FREE T4on 03-31-2022 Free T4 [Mass/Vol] 4.55 ng/dL High 0.71-1.85 [facility] Comment on above: Performed By: #### 5 0103 #### [facility] [address] [place] [address], [facility] MAGNESIUM BLOODon 03-31-2022 Magnesium [Mass/Vol] 2.3 mg/dL Normal 1.9-2.7 [facility] Comment on above: Order Comment: No: D o not add to previous draw Performed By: #### 4 4396, 79180, 34588, 77008, 51800 #### [facility] [address] [place] [address], [facility] PHOSPHORUS BLOODon 2 Phosphate [Mass/Vol] 5.4 mg/dL High 2.5-5.0 [facility] Comment on above: Order Comment: No: D o not add to previous draw Performed By: #### 4 4396, 61130, 38664, 50885, 80414 #### [facility] [address] [place] [address], [facility] POC GLUCOSE LABon 03-31-2022 Glucose [Mass/Vol] 161 mg/dL High 70-100 [facility] Comment on above: Performed By: #### 5 0608 #### [facility] [address] [place] [address], [place] Glucose [Mass/Vol] 108 mg/dL High 70-100 [facility] Comment on above: Performed By: #### 5 0608 #### [facility] [address] [place] [address], [place] POC SARS COV2 ANTIGEN NEGATI VEon 03-31-2022 POC SARS COV2 ANTIGEN NEG Negative Normal NEGATIVE [facility] Comment on above: Result Comment: Nega [...] antigen from SARS-CoV-2 in direct nasopharyngeal swab ([employer]) specimens from individuals who are suspected of [...] Accreditation. Performed By: #### 5 0103 #### [facility] [address] [facility]. [address] TSH3on 03-31-2022 TSH 3RD GENERATION <0.01 Critically low 0.34-5.60 [facility] Comment on above: Performed By: #### 4 4396, 27100, 30339, 90306, 35092 #### [facility] [address] BASIC METABOLIC PANELon 03-16 Calcium [Mass/Vol] 9.8 mg/dL Normal 8.6-10.3 [facility] Comment on above: Order Comment: No: D o not add to previous draw Performed By: #### 5 0103 #### [facility] [address] [place] [place] [address], [place] Chloride [Moles/Vol] 103 mmol/L Normal 98-107 [facility] Comment on above: Order Comment: No: D o not add to previous draw Performed By: #### 5 0103 #### [facility] [address] [place] [address], [place] CO2 [Moles/Vol] 29 mmol/L Normal 21-31 [facility] Comment on above: Order Comment: No: D o not add to previous draw Performed By: #### 5 0103 #### [facility] [address] [place] [address], [place] Creatinine [Mass/Vol] 2.60 mg/dL High 0.70-1.30 [facility] Comment on above: Order Comment: No: D o not add to previous draw Performed By: #### 5 0103 #### [facility] [address] [place] [address], [facility] eGFR- 29 ml/min/1.73sq m Abnormal >60 [facility] Comment on above: Order Comment: No: D o not add to previous draw Result Comment: Calc ulation may not be valid for patients over 70 years Performed By: #### 5 0103 #### [facility] [address] [place] [address], [facility] eGFR- non- 24 ml/min/1.73sq m Abnormal >60 [facility] Comment on above: Order Comment: No: D o not add to previous draw Result Comment: Calc ulation may not be valid for patients over 70 years Performed By: #### 5 0103 #### [facility] [address] [place] [address], [place] Glucose [Mass/Vol] 109 mg/dL High 70-100 [facility] Comment on above: Order Comment: No: D o not add to previous draw Performed By: #### 5 0103 #### [facility] [address] [place] [address], [facility] Potassium [Moles/Vol] 4.0 mmol/L Normal 3.5-5.1 [facility] Comment on above: Order Comment: No: D o not add to previous draw Performed By: #### 5 0103 #### [facility] [address] [place] [address], [facility] Sodium [Moles/Vol] 141 mmol/L Normal 136-145 [facility] Comment on above: Order Comment: No: D o not add to previous draw Performed By: #### 5 0103 #### [facility] [address] [place] [address], [facility] Urea nitrogen [Mass/Vol] 55 mg/dL High 7-25 [facility] Comment on above: Order Comment: No: D o not add to previous draw Performed By: #### 5 0103 #### [facility] [address] [place] [address], [facility] CBC W/DIFFon 03-30-2022 ABS IMM GRANS 0.0 10*3/uL Normal 0.0-0.2 [facility] Comment on above: Performed By: #### 5 0103 #### [facility] [address] [place] [address], [facility] ABS NEUTROPHILS 4.1 10*3/uL Normal 1.6-7.6 [facility] Comment on above: Performed By: #### 5 0103 #### [facility] [address] [place] [address], [facility] Basophils (Bld) [#/Vol] 0.0 10*3/uL Normal 0.0-0.2 [facility] Comment on above: Performed By: #### 5 0103 #### [facility] [address] [place] [address], [facility] Basophils/100 WBC (Bld) 0.3 % Normal 0.0-1.0 [facility] Comment on above: Performed By: #### 5 3 #### [facility] [address] Eosinophils (Bld) [#/Vol] 0.3 10*3/uL Normal 0.0-0.5 [facility] Comment on above: Performed By: #### 0103 #### [facility] [address] Eosinophils/100 WBC (Bld) 5.3 % Normal 0.0-6.0 [facility] Comment on above: Performed By: #### 3 #### [facility] [address] Erythrocyte distribution width (RBC) [Ratio] 13.7 % Normal 11.5-15.0 [facility] Comment on above: Performed By: #### 3 #### [facility] [address] Hematocrit (Bld) [Volume fraction] 30.2 % Low 39.0-50.0 [facility] Comment on above: Performed By: #### 3 #### [facility] [address] Hemoglobin (Bld) [Mass/Vol] 9.8 g/dL Low 13.0-17.0 [facility] Comment on above: Performed By: #### 3 #### [facility] [address] IMMATURE GRANS 0.3 % Normal 0.0-1.0 [facility] Comment on above: Performed By: #### 102 #### [facility] [address] [place] [address], [facility] Lymphocytes (Bld) [#/Vol] 1.1 10*3/uL Low 1.2-4.0 [facility] Comment on above: Performed By: #### 3 #### [facility] [address] [place] [address], [facility] Lymphocytes/100 WBC (Bld) 17.9 % Low 20.0-45.0 [facility] Comment on above: Performed By: #### 5 3 #### [facility] [address] [place] [address], [facility] MCH (RBC) [Entitic mass] 29.3 pg Normal 27.0-33.0 [facility] Comment on above: Performed By: #### 5 3 #### [facility] [address] [place] [address], [facility] MCHC (RBC) [Mass/Vol] 32.5 g/dL Normal 32.0-35.0 [facility] Comment on above: Performed By: #### 5 102 #### [facility] [address] [place] [address], [facility] MCV (RBC) [Entitic vol] 90.4 fL Normal 82.0-98.0 [facility] Comment on above: Performed By: #### 5 3 #### [facility] [address] [place] [address], [facility] Monocytes (Bld) [#/Vol] 0.7 10*3/uL Normal 0.1-1.0 [facility] Comment on above: Performed By: #### 5 3 #### [facility] [address] [place] [address], [facility] MONOS 11.6 % Normal 5.0-12.0 [facility] Comment on above: Performed By: #### 5 3 #### [facility] [address] [place] [address], [facility] Neutrophils/100 WBC (Bld) 64.6 % Normal 40.0-72.0 [facility] Comment on above: Performed By: #### 5 3 #### [facility] [address] [place] [address], [facility] Nucleated RBC/100 WBC (Bld) [Ratio] 0 % Normal 0-0 [facility] Comment on above: Performed By: #### 5 0103 #### [facility] [address] [place] [place] [address], [facility] PLAT CNT 215 10*3/uL Normal 150-400 [facility] Comment on above: Performed By: #### 5 0103 #### [facility] [address] [place] [address], [facility] RBC (Bld) [#/Vol] 3.34 10*6/uL Low 4.20-5.70 [facility] Comment on above: Performed By: #### 5 0103 #### [facility] [address] [place] [address], [facility] WBC (Bld) [#/Vol] 6.38 10*3/uL Normal 4.00-10.60 [facility] Comment on above: Performed By: #### 5 0103 #### [facility] [address] [place] [address], [facility] MAGNESIUM BLOODon 03-30-2022 Magnesium [Mass/Vol] 2.3 mg/dL Normal 1.9-2.7 [facility] Comment on above: Order Comment: No: D o not add to previous draw Performed By: #### 5 0103 #### [facility] [address] [place] [address], [facility] TROPONIN-Ion 03-30-2022 Troponin I.cardiac [Mass/Vol] 0.04 ng/mL Normal 0.00-0.04 [facility] Comment on above: Order Comment: No: D o not add to previous draw Result Comment: REFE RENCE RANGES: 0.00 - 0.04 ng/ml NORMAL 0.05 - 0.50 ng/ml INDETERMINATE > 0.50 ng/ml CONSISTENT WITH AN M.I. Performed By: #### 5 0103 #### [facility] [address] [place] [address], [facility] BNPon 03-25-2022 Natriuretic peptide B (Bld) [Mass/Vol] 7410.0 pg/mL Critically high <=1,800.0 [facility] Comment on above: Performed By: #### F T4 #### [facility] [address] [place] [address] Dr. Benito Schwartz PROF CHEM 8 (BAS METB)on Anion gap [Moles/Vol] 14.5 mmol/L Normal [facility] Comment on above: Performed By: #### F T4 #### [facility] [address] [place] [address] Dr. Benito Schwartz Calcium [Mass/Vol] 9.6 mg/dL Normal 8.5-10.1 [facility] Comment on above: Performed By: #### F T4 #### [facility] [address] [place] [address] Dr. Benito Schwartz Chloride [Moles/Vol] 105 mmol/L Normal 98-107 [facility] Comment on above: Performed By: #### F T4 #### [facility] [address] [place] [address] Dr. Benito Schwartz CO2 [Moles/Vol] 27.6 mmol/L Normal 21.0-32.0 [facility] Comment on above: Performed By: #### F T4 #### [facility] [address] [place] [address] Dr. Benito Schwartz Creatinine [Mass/Vol] 2.48 mg/dL Critically high 0.70-1.30 [facility] Comment on above: Performed By: #### F T4 #### [facility] [address] [place] [address] Dr. Benito Schwartz EGFR-AF MARSHALLESE 31 mL/min/1.73m2 Critically low >=60 [facility] Comment on above: Performed By: #### F T4 #### [facility] [address] [place] [address] Dr. Benito Schwartz EGFR-NON AF MARSHALLESE 25 mL/min/1.73m2 Critically low >=60 [facility] Comment on above: Performed By: #### F T4 #### [facility] [address] [place] [address] [address] Benito Schwartz Glucose [Mass/Vol] 116 mg/dL Critically high 74-106 [facility] Comment on above: Performed By: #### F T4 #### [facility] [address] [place] [address] [address] Benito Schwartz Potassium [Moles/Vol] 4.1 mmol/L Normal 3.5-5.1 [facility] Comment on above: Performed By: #### F T4 #### [facility] [address] [place] [address] Dr. Benito Schwartz Sodium [Moles/Vol] 143 mmol/L Normal 136-145 [facility] Comment on above: Performed By: #### F T4 #### [facility] [address] [place] [address] Dr. Benito Schwartz Urea nitrogen [Mass/Vol] 56.0 mg/dL Critically high 7.0-18 .0 [facility] Comment on above: Performed By: #### F T4 #### [facility] [address] [place] [address] Dr. Benito Schwartz Urea nitrogen/Creatinine [Mass ratio] 22.6 mg/mg Normal [facility] Comment on above: Performed By: #### F T4 #### [facility] [address] [place] [address] Dr. Benito Schwartz CBC AUTO DIFFon 03-07-2022 BASO # 0.0 103/ul Normal 0.0-0.1 [facility] Comment on above: Performed By: #### V ITAD #### [facility] [address] [place] [address] Dr. Benito Schwartz Basophils/100 WBC (Bld) 0.3 % Normal 0.2-2.0 [facility] Comment on above: Performed By: #### V ITAD #### [facility] [address] [place] [address] Dr. Benito Schwartz EO # 0.1 103/ul Normal 0.0-0.7 [facility] Comment on above: Performed By: #### V ITAD #### [facility] [address] [place] [address] Dr. Benito Schwartz Eosinophils/100 WBC (Bld) 2.4 % Normal 0.9-7.0 [facility] Comment on above: Performed By: #### V ITAD #### [facility] [address] [place] [address] Dr. Benito Schwartz Erythrocyte distribution width (RBC) [Ratio] 13.4 % Normal 11.0-15.0 [facility] Comment on above: Performed By: #### V ITAD #### [facility] [address] [place] [address] Dr. Benito Schwartz Hematocrit (Bld) [Volume fraction] 27.7 % Critically low 42.0-54.0 [facility] Comment on above: Performed By: #### V ITAD #### [facility] [address] [place] [address] Dr. Benito Schwartz Hemoglobin (Bld) [Mass/Vol] 8.8 g/dL Critically low 14.0-18.0 [facility] Comment on above: Performed By: #### V ITAD #### [facility] [address] [place] [address] Dr. Benito Schwartz IG # 0.02 10e3/ul Normal 0.00-0.03 [facility] Comment on above: Performed By: #### V ITAD #### [facility] [address] [place] [address] Dr. Benito Schwartz IG % 0.3 % Normal 0.0-0.5 [facility] Comment on above: Performed By: #### V ITAD #### [facility] [address] [place] [address] Dr. Benito Schwartz LYMPH # 1.1 103/ul Critically low 1.2-3.8 [facility] Comment on above: Performed By: #### V ITAD #### [facility] [address] [place] [address] Dr. Benito Schwartz Lymphocytes/100 WBC (Bld) 17.9 % Critically low 20.5-60.0 [facility] Comment on above: Performed By: #### V ITAD #### [facility] [address] [place] [address] Dr. Benito Schwartz MANUAL DIFF REQ NO Normal [facility] Comment on above: Performed By: #### V ITAD #### [facility] [address] [place] [address] Dr. Benito Schwartz MCH (RBC) [Entitic mass] 29.0 pg Normal 25.9-34.0 [facility] Comment on above: Performed By: #### V ITAD #### [facility] [address] [place] [address] Dr. Benito Schwartz MCHC (RBC) [Mass/Vol] 31.8 g/dL Normal 29.9-35.2 [facility] Comment on above: Performed By: #### V ITAD #### [facility] [address] [place] [address] Dr. Benito Schwartz MCV (RBC) [Entitic vol] 91.4 fL Normal 80.0-94.0 [facility] Comment on above: Performed By: #### V ITAD #### [facility] [address] [place] [address] Dr. Benito Schwartz MONO # 0.9 103/ul Critically high 0.3-0.8 [facility] Comment on above: Performed By: #### V ITAD #### [facility] [address] [place] [address] Dr. Benito Schwartz Monocytes/100 WBC (Bld) 15.3 % Critically high 1.7-12. 0 [facility] Comment on above: Performed By: #### V ITAD #### [facility] Laboratory [address] [place] [address] Dr. Benito Schwartz NEUT # 3.7 103/ul Normal 1.4-6.5 [facility] Comment on above: Performed By: #### V ITAD #### [facility] [address] [place] [address] Dr. Benito Schwartz Neutrophils/100 WBC (Bld) 63.8 % Normal 43.0-75.0 [facility] Comment on above: Performed By: #### V ITAD #### [facility] [address] [address] [address] Benito Schwartz Platelet mean volume (Bld) [Entitic vol] 9.8 fL Normal 9.5-13.5 [facility] Comment on above: Performed By: #### V ITAD #### [facility] [address] [address] [address] Benito Schwartz PLT 212 103/ul Normal 150-450 [facility] Comment on above: Performed By: #### V ITAD #### [facility] [id number] Benito Schwartz RBC 3.03 106/ul Critically low 4.70-6.10 [facility] Comment on above: Performed By: #### V ITAD #### [facility] [id number] Benito Schwartz WBC 5.9 103/ul Normal 4.0-11.0 [facility] Comment on above: Performed By: #### V ITAD #### [facility] [address] [place], [place] [id number] Dr. Benito Schwartz ECHOCARDIO M/2D COMPLETEon 0 03-07-2022 ECHOCARDIO M/2D COMPLETE Patient: NAS REN Exam Date: 03/07/2022 : 1940 Gender:M Ordering : DR RUPINDER GRIGSBY . Admission #: [id number] Family : DR ARNIE LINDA D.O. Order #: [id number] CLICK HERE TO VIEW EXAM ECHOCARDIOGRAM REPORT [...] Area(A4C): 23.30 cm2 Left Atrium Systolic Volume(A2C): 90730 mm3 Left Atrium Systolic Volume(A4C): 01687 mm3 Mitral Valve MV E to A [...] Rick M.D. on 03/08/2022 at 11:16 Normal [facility] OCC BLD IMMUNO SCREENon 02-14 OCCULT BLOOD Negative Normal NEGATIVE [facility] Comment on above: Performed By: #### V ITAD #### [facility] [address] [place] [address] Dr. Benito Schwartz POINT OF CARE GLUCOSEon 02-14 Glucose [Mass/Vol] 124 mg/dL Critically high 74-106 [facility] Comment on above: Performed By: #### B 12FOL, FETIBC #### [facility] [address] [address] [address] Benito Schwartz PROF CHEM 8 (BAS METB)on Anion gap [Moles/Vol] 13.1 mmol/L Normal [facility] Comment on above: Performed By: #### B 12FOL, FETIBC #### [facility] [address] [address] [address] Benito Schwartz Calcium [Mass/Vol] 9.2 mg/dL Normal 8.5-10.1 [facility] Comment on above: Performed By: #### B 12FOL, FETIBC #### [facility] [address] [address] [address] Benito Schwartz Chloride [Moles/Vol] 105 mmol/L Normal 98-107 [facility] Comment on above: Performed By: #### B 12FOL, FETIBC #### [facility] [address] [address] [address] Benito Schwartz CO2 [Moles/Vol] 28.6 mmol/L Normal 21.0-32.0 [facility] Comment on above: Performed By: #### B 12FOL, FETIBC #### [facility] [address] [place] [address] Dr. Benito Schwartz Creatinine [Mass/Vol] 2.22 mg/dL Critically high 0.70-1.30 [facility] Comment on above: Performed By: #### B 12FOL, FETIBC #### [facility] [address] [place] [address] Dr. Benito Schwartz EGFR-AF MARSHALLESE 35 mL/min/1.73m2 Critically low >=60 [facility] Comment on above: Performed By: #### B 12FOL, FETIBC #### [facility] [address] [place] [address] Dr. Benito Schwartz EGFR-NON AF MARSHALLESE 29 mL/min/1.73m2 Critically low >=60 [facility] Comment on above: Performed By: #### B 12FOL, FETIBC #### [facility] [address] [place] [address] Dr. Benito Schwartz Glucose [Mass/Vol] 110 mg/dL Critically high 74-106 [facility] Comment on above: Performed By: #### B 12FOL, FETIBC #### [facility] [address] [place] [address] Dr. Benito Schwartz Potassium [Moles/Vol] 3.7 mmol/L Normal 3.5-5.1 [facility] Comment on above: Performed By: #### B 12FOL, FETIBC #### [facility] [address] [place] [address] Dr. Benito Schwartz Sodium [Moles/Vol] 143 mmol/L Normal 136-145 [facility] Comment on above: Performed By: #### B 12FOL, FETIBC #### [facility] [address] [place] [address] Dr. Benito Schwartz Urea nitrogen [Mass/Vol] 66.0 mg/dL Critically high 7.0-18 .0 [facility] Comment on above: Performed By: #### B 12FOL, FETIBC #### [facility] [address] [place] [address] Dr. Benito Schwartz Urea nitrogen/Creatinine [Mass ratio] 29.7 mg/mg Normal [facility] Comment on above: Performed By: #### B 12FOL, FETIBC #### [facility] [address] [place] [address] Dr. Benito Schwartz CBC AUTO DIFFon 03-06-2022 BASO # 0.0 103/ul Normal 0.0-0.1 [facility] Comment on above: Performed By: #### B 12FOL, FETIBC #### [facility] [address] [place] [address] Dr. Benito Schwartz Basophils/100 WBC (Bld) 0.2 % Normal 0.2-2.0 [facility] Comment on above: Performed By: #### B 12FOL, FETIBC #### [facility] [address] [place] [address] Dr. Benito Schwartz EO # 0.1 103/ul Normal 0.0-0.7 [facility] Comment on above: Performed By: #### B 12FOL, FETIBC #### [facility] [address] [place] [address] Dr. Benito Schwartz Eosinophils/100 WBC (Bld) 2.4 % Normal 0.9-7.0 [facility] Comment on above: Performed By: #### B 12FOL, FETIBC #### [facility] [address] [place] [address] Dr. Benito Schwartz Erythrocyte distribution width (RBC) [Ratio] 13.8 % Normal 11.0-15.0 [facility] Comment on above: Performed By: #### B 12FOL, FETIBC #### [facility] [address] [place] [address] Dr. Benito Schwartz Hematocrit (Bld) [Volume fraction] 27.7 % Critically low 42.0-54.0 [facility] Comment on above: Performed By: #### B 12FOL, FETIBC #### [facility] [address] [place] [address] Dr. Benito Schwartz Hemoglobin (Bld) [Mass/Vol] 8.7 g/dL Critically low 14.0-18.0 [facility] Comment on above: Performed By: #### B 12FOL, FETIBC #### [facility] [address] [place] [address] Dr. Benito Schwartz IG # 0.02 10e3/ul Normal 0.00-0.03 [facility] Comment on above: Performed By: #### B 12FOL, FETIBC #### [facility] [address] [place] [address] Dr. Benito Schwartz IG % 0.3 % Normal 0.0-0.5 [facility] Comment on above: Performed By: #### B 12FOL, FETIBC #### [facility] [address] [place] [address] Dr. Benito Schwartz LYMPH # 1.0 103/ul Critically low 1.2-3.8 [facility] Comment on above: Performed By: #### B 12FOL, FETIBC #### [facility] [address] [place] [address] Dr. Benito Schwartz Lymphocytes/100 WBC (Bld) 16.7 % Critically low 20.5-60.0 [facility] Comment on above: Performed By: #### B 12FOL, FETIBC #### [facility] [address] [place] [address] Dr. Benito Schwartz MANUAL DIFF REQ NO Normal [facility] Comment on above: Performed By: #### B 12FOL, FETIBC #### [facility] [address] [place] [address] Dr. Benito Schwartz MCH (RBC) [Entitic mass] 29.1 pg Normal 25.9-34.0 [facility] Comment on above: Performed By: #### B 12FOL, FETIBC #### [facility] [address] [place] [address] Dr. Benito Schwartz MCHC (RBC) [Mass/Vol] 31.4 g/dL Normal 29.9-35.2 [facility] Comment on above: Performed By: #### B 12FOL, FETIBC #### [facility] [address] [place] [address] Dr. Benito Schwartz MCV (RBC) [Entitic vol] 92.6 fL Normal 80.0-94.0 [facility] Comment on above: Performed By: #### B 12FOL, FETIBC #### [facility] [address] [place] [address] Dr. Benito Schwartz MONO # 0.9 103/ul Critically high 0.3-0.8 [facility] Comment on above: Performed By: #### B 12FOL, FETIBC #### [facility] [address] [place] [address] Dr. Benito Schwartz Monocytes/100 WBC (Bld) 15.3 % Critically high 1.7-12. 0 [facility] Comment on above: Performed By: #### B 12FOL, FETIBC #### [facility] [address] [place] [address] Dr. Benito Schwartz NEUT # 3.7 103/ul Normal 1.4-6.5 [facility] Comment on above: Performed By: #### B 12FOL, FETIBC #### [facility] [address] [place] [address] Dr. Benito Schwartz Neutrophils/100 WBC (Bld) 65.1 % Normal 43.0-75.0 [facility] Comment on above: Performed By: #### B 12FOL, FETIBC #### [facility] [address] [place] [address] Dr. Benito Schwartz Platelet mean volume (Bld) [Entitic vol] 9.7 fL Normal 9.5-13.5 [facility] Comment on above: Performed By: #### B 12FOL, FETIBC #### [facility] [address] [place] [address] Dr. Benito Schwartz PLT 205 103/ul Normal 150-450 [facility] Comment on above: Performed By: #### B 12FOL, FETIBC #### [facility] [address] [address] [address] Benito Schwartz RBC 2.99 106/ul Critically low 4.70-6.10 [facility] Comment on above: Performed By: #### B 12FOL, FETIBC #### [facility] [address] [address] [address] Benito Schwartz WBC 5.7 103/ul Normal 4.0-11.0 [facility] Comment on above: Performed By: #### B 12FOL, FETIBC #### [facility] [address] [address] [address] HEAD WO CONon [...] by: ANTHONY TRACEY Date: 2022-03-06 12:33 Normal [facility] IRON AND TIBCon 03-06-2022 % SATURATION 24.7 % Normal [facility] Comment on above: Performed By: #### B 12FOL, FETIBC #### [facility] [address] [address] [address] Benito Schwartz Iron [Mass/Vol] 55.0 ug/dL Critically low 65.0-175.0 [facility] Comment on above: Performed By: #### B 12FOL, FETIBC #### [facility] [address] [address] [address] Benito Schwartz TIBC DIRECT 223.0 ug/dL Critically low 250.0-450.0 [facility] Comment on above: Performed By: #### B 12FOL, FETIBC #### [facility] [address] [address] [address] Beniot Schwartz POINT OF CARE GLUCOSEon 02-14 Glucose [Mass/Vol] 145 mg/dL Critically high 74-106 [facility] Comment on above: Performed By: #### V ITAD #### [facility] [address] [address] [address] Benito Schwartz PROF CHEM 8 (BAS METB)on Anion gap [Moles/Vol] 14.6 mmol/L Normal [facility] Comment on above: Performed By: #### V ITAD #### [facility] [address] [place] [address] Dr. Benito Schwartz Calcium [Mass/Vol] 9.0 mg/dL Normal 8.5-10.1 [facility] Comment on above: Performed By: #### V ITAD #### [facility] [address] [address] [address] Benito Schwartz Chloride [Moles/Vol] 106 mmol/L Normal 98-107 [facility] Comment on above: Performed By: #### V ITAD #### [facility] [address] [address] [address] Benito Schwartz CO2 [Moles/Vol] 26.3 mmol/L Normal 21.0-32.0 [facility] Comment on above: Performed By: #### V ITAD #### [facility] [address] [address] [address] Benito Schwartz Creatinine [Mass/Vol] 2.40 mg/dL Critically high 0.70-1.30 [facility] Comment on above: Performed By: #### V ITAD #### [facility] [address] [address] [address] Benito Schwartz EGFR-AF MARSHALLESE 32 mL/min/1.73m2 Critically low >=60 [facility] Comment on above: Performed By: #### V ITAD #### [facility] [address] [address] [address] Benito Schwartz EGFR-NON AF MARSHALLESE 26 mL/min/1.73m2 Critically low >=60 [facility] Comment on above: Performed By: #### V ITAD #### [facility] [address] [address] [address] Benito Schwartz Glucose [Mass/Vol] 108 mg/dL Critically high 74-106 [facility] Comment on above: Performed By: #### V ITAD #### [facility] [address] [address] [address] Benito Schwartz Potassium [Moles/Vol] 3.9 mmol/L Normal 3.5-5.1 [facility] Comment on above: Performed By: #### V ITAD #### [facility] [address] [address] [address] Benito Schwartz Sodium [Moles/Vol] 143 mmol/L Normal 136-145 [facility] Comment on above: Performed By: #### V ITAD #### [facility] [address] [address] [address] Benito Schwartz Urea nitrogen [Mass/Vol] 72.0 mg/dL Critically high 7.0-18 .0 [facility] Comment on above: Performed By: #### V ITAD #### [facility] [address] [address] [address] Benito Schwartz Urea nitrogen/Creatinine [Mass ratio] 30.0 mg/mg Normal [facility] Comment on above: Performed By: #### V ITAD #### [facility] [address] [address] [address] Benito Schwartz VIT B12 AND FOLATEon 022 Cobalamin (Vitamin B12) [Mass/Vol] 432.0 pg/mL Normal 193.0-986.0 [facility] Comment on above: Performed By: #### B 12FOL, FETIBC #### [facility] [address] [address] [address] Benito Schwartz FOLATE 21.60 ng/mL Normal 8.60-58.90 [facility] Comment on above: Performed By: #### B 12FOL, FETIBC #### [facility] [address] [place] [address] Dr. Benito Schwartz BNPon 03-05-2022 Natriuretic peptide B (Bld) [Mass/Vol] 6910.0 pg/mL Critically high <=1,800.0 [facility] Comment on above: Result Comment: Test Repeated. Critical Value Verified Performed By: #### B 12FOL, FETIBC #### [facility] [address] [place] [address] Dr. Benito Schwartz CBC AUTO DIFFon 03-05-2022 BASO # 0.0 103/ul Normal 0.0-0.1 [facility] Comment on above: Performed By: #### F T4, PSASC #### [facility] [address] [place] [address] Dr. Benito Schwartz Basophils/100 WBC (Bld) 0.3 % Normal 0.2-2.0 [facility] Comment on above: Performed By: #### F T4, PSASC #### [facility] [address] [place] [address] Dr. Benito Schwartz EO # 0.2 103/ul Normal 0.0-0.7 [facility] Comment on above: Performed By: #### F T4, PSASC #### [facility] [address] [place] [address] Dr. Benito Schwartz Eosinophils/100 WBC (Bld) 2.7 % Normal 0.9-7.0 [facility] Comment on above: Performed By: #### F T4, PSASC #### [facility] [address] [place] [address] Dr. Benito Schwartz Erythrocyte distribution width (RBC) [Ratio] 13.7 % Normal 11.0-15.0 [facility] Comment on above: Performed By: #### F T4, PSASC #### [facility] [address] [place] [address] Dr. Benito Schwartz Hematocrit (Bld) [Volume fraction] 27.9 % Critically low 42.0-54.0 [facility] Comment on above: Performed By: #### F T4, PSASC #### [facility] [address] [place] [address] Dr. Benito Schwartz Hemoglobin (Bld) [Mass/Vol] 8.9 g/dL Critically low 14.0-18.0 [facility] Comment on above: Performed By: #### F T4, PSASC #### [facility] [address] [place] [address] Dr. Benito Schwartz IG # 0.01 10e3/ul Normal 0.00-0.03 [facility] Comment on above: Performed By: #### F T4, PSASC #### [facility] [address] [place] [address] Dr. Benito Schwartz IG % 0.2 % Normal 0.0-0.5 [facility] Comment on above: Performed By: #### F T4, PSASC #### [facility] [address] [place] [address] Dr. Benito Schwartz LYMPH # 1.3 103/ul Normal 1.2-3.8 [facility] Comment on above: Performed By: #### F T4, PSASC #### [facility] [address] [place] [address] Dr. Benito Schwartz Lymphocytes/100 WBC (Bld) 21.5 % Normal 20.5-60.0 [facility] Comment on above: Performed By: #### F T4, PSASC #### [facility] [address] [place] [address] Dr. Benito Schwartz MANUAL DIFF REQ NO Normal [facility] Comment on above: Performed By: #### F T4, PSASC #### [facility] [address] [place] [address] Dr. Benito Schwartz MCH (RBC) [Entitic mass] 29.5 pg Normal 25.9-34.0 [facility] Comment on above: Performed By: #### F T4, PSASC #### [facility] [address] [place] [address] Dr. Benito Schwartz MCHC (RBC) [Mass/Vol] 31.9 g/dL Normal 29.9-35.2 [facility] Comment on above: Performed By: #### F T4, PSASC #### [facility] [address] [place] [address] Dr. Benito Schwartz MCV (RBC) [Entitic vol] 92.4 fL Normal 80.0-94.0 [facility] Comment on above: Performed By: #### F T4, PSASC #### [facility] [address] [place] [address] Dr. Benito Schwartz MONO # 1.0 103/ul Critically high 0.3-0.8 [facility] Comment on above: Performed By: #### F T4, PSASC #### [facility] [address] [place] [address] Dr. Benito Schwartz Monocytes/100 WBC (Bld) 16.3 % Critically high 1.7-12. 0 [facility] Comment on above: Performed By: #### F T4, PSASC #### [facility] [address] [place] [address] Dr. Benito Schwartz NEUT # 3.5 103/ul Normal 1.4-6.5 [facility] Comment on above: Performed By: #### F T4, PSASC #### [facility] [address] [place] [address] Dr. Benito Schwartz Neutrophils/100 WBC (Bld) 59.0 % Normal 43.0-75.0 [facility] Comment on above: Performed By: #### F T4, PSASC #### [facility] [address] [place] [address] Dr. Benito Schwartz Platelet mean volume (Bld) [Entitic vol] 9.5 fL Normal 9.5-13.5 [facility] Comment on above: Performed By: #### F T4, PSASC #### [facility] [address] [place] [address] Dr. Benito Schwartz PLT 213 103/ul Normal 150-450 [facility] Comment on above: Performed By: #### F T4, PSASC #### [facility] [address] [address] [address] Benito Schwartz RBC 3.02 106/ul Critically low 4.70-6.10 [facility] Comment on above: Performed By: #### F T4, PSASC #### [facility] [address] [place] [address] Dr. Benito Schwartz WBC 5.9 103/ul Normal 4.0-11.0 [facility] Comment on above: Performed By: #### F T4, PSASC #### [facility] [address] [address] [address] Benito Schwartz CULTURE BLOODon 03-05-2022 Microscopic examination of blood, culture Culture Observations: NO GROWTH AT 5 DAYS. Normal [facility] Comment on above: Performed By: #### V ITAD #### [facility] [address] [place] [address] Dr. Benito Schwartz [facility] SARS-CoV-2 (COVID-19) RNA ZITA+probe Ql (Unsp spec) Not detected Normal NOT DETECTED [facility] Comment on above: Result Comment: This test is not yet approved or cleared by the [place] FDA. When there are no FDA-approved or cleared tests available, and other criteria are met, FDA can make tests available under an emergency access mechanism called an Emergency Use Authorization (EUA). The EUA for this test is supported by the [place] of Health and Human Service's (HHS's) declaration [...] SARS-CoV-2. Performed By: #### C BC #### [facility] [address] [place] [address] Dr. Benito Schwartz FREE T4on 03-05-2022 Free T4 [Mass/Vol] ng/dL Critically high 0.76-1.46 [facility] Comment on above: Performed By: #### C BC #### [facility] [address] [address] [address] Benito Schwartz LACTATE/LACTIC ACIDon 2021 Lactate [Moles/Vol] 1.2 mmol/L Normal 0.4-1.9 [facility] Comment on above: Performed By: #### F T4 #### [facility] [address] [place] [address] Dr. Benito Schwartz PROF 14(COMP METB)on 022 Albumin [Mass/Vol] 2.9 g/dL Critically low 3.4-5.0 [facility] Comment on above: Performed By: #### F T4, PSASC #### [facility] [address] [place] [address] Dr. Benito Schwartz Albumin/Globulin [Mass ratio] 0.8 {ratio} Normal [facility] Comment on above: Performed By: #### F T4, PSASC #### [facility] [address] [place] [address] Dr. Benito Schwartz ALP [Catalytic activity/Vol] 107 U/L Normal 46-116 [facility] Comment on above: Performed By: #### F T4, PSASC #### [facility] [address] [place] [address] Dr. Benito Schwartz ALT [Catalytic activity/Vol] 25 U/L Normal 16-63 [facility] Comment on above: Performed By: #### F T4, PSASC #### [facility] [address] [place] [address] Dr. Benito Schwartz Anion gap [Moles/Vol] 14.2 mmol/L Normal [facility] Comment on above: Performed By: #### F T4, PSASC #### [facility] [address] [place] [address] Dr. Benito Schwartz AST [Catalytic activity/Vol] 17 U/L Normal 15-37 [facility] Comment on above: Performed By: #### F T4, PSASC #### [facility] [address] [address] [address] Benito Schwartz Bilirubin [Mass/Vol] 0.5 mg/dL Normal 0.2-1.0 [facility] Comment on above: Performed By: #### F T4, PSASC #### [facility] [address] [address] [address] Benito Schwartz Calcium [Mass/Vol] 9.1 mg/dL Normal 8.5-10.1 [facility] Comment on above: Performed By: #### F T4, PSASC #### [facility] [address] [address] [address] Benito Schwartz Chloride [Moles/Vol] 104 mmol/L Normal 98-107 [facility] Comment on above: Performed By: #### F T4, PSASC #### [facility] [address] [place] [address] Dr. Benito Schwartz CO2 [Moles/Vol] 27.0 mmol/L Normal 21.0-32.0 [facility] Comment on above: Performed By: #### F T4, PSASC #### [facility] [address] [address] [address] Benito Schwartz Creatinine [Mass/Vol] 2.97 mg/dL Critically high 0.70-1.30 [facility] Comment on above: Performed By: #### F T4, PSASC #### [facility] [address] [address] [address] Benito Schwartz EGFR-AF MARSHALLESE 25 mL/min/1.73m2 Critically low >=60 [facility] Comment on above: Performed By: #### F T4, PSASC #### [facility] [address] [address] [address] Benito Schwartz EGFR-NON AF MARSHALLESE 21 mL/min/1.73m2 Critically low >=60 [facility] Comment on above: Performed By: #### F T4, PSASC #### [facility] [address] [address] [address] Benito Schwartz Globulin (S) [Mass/Vol] 3.6 g/dL Normal [facility] Comment on above: Performed By: #### F T4, PSASC #### [facility] [address] [address] [address] Benito Schwartz Glucose [Mass/Vol] 162 mg/dL Critically high 74-106 [facility] Comment on above: Performed By: #### F T4, PSASC #### [facility] [address] [address] [address] Benito Schwartz Potassium [Moles/Vol] 4.2 mmol/L Normal 3.5-5.1 [facility] Comment on above: Performed By: #### F T4, PSASC #### [facility] [address] [place] [address] Dr. Benito Schwartz Protein [Mass/Vol] 6.5 g/dL Normal 6.4-8.2 [facility] Comment on above: Performed By: #### F T4, PSASC #### [facility] [address] [place] [address] Dr. Benito Schwartz Sodium [Moles/Vol] 141 mmol/L Normal 136-145 [facility] Comment on above: Performed By: #### F T4, PSASC #### [facility] [address] [place] [address] Dr. Benito Schwartz Urea nitrogen [Mass/Vol] 74.0 mg/dL Critically high 7.0-18 .0 [facility] Comment on above: Performed By: #### F T4, PSASC #### [facility] [address] [place] [address] Dr. Benito Schwartz Urea nitrogen/Creatinine [Mass ratio] 24.9 mg/mg Normal [facility] Comment on above: Performed By: #### F T4, PSASC #### [facility] [address] [place] [address] Dr. Benito Schwartz TROPONIN, HIGH SENSITIVITYon 03-05-2022 HSTROP 39.6 pg/mL Normal 4.0-76.1 [facility] Comment on above: Result Comment: CUT- OFF POINTS HAVE BEEN ESTABLISHED BASED ON THE FOURTH UNIVERSAL DEFINITIONS OF MYOCARDIAL INFARCTION. THE UPPER REFERENCE LIMIT (URL) OF TROPONIN, DEFINED THE 99TH PERCENTILE OF cTnI DISTRIBUTION IN A REFERENCE POPULATION, HAS BEEN CONFIRMED THE DECISION THRESHOLD FOR SC DIAGNOSIS. Performed By: #### F T4, PSASC #### [facility] [address] [address] [address] Benito Schwartz TSHon 03-05-2022 TSH Qn m[IU]/L Critically low 0.358-3.740 [facility] Comment on above: Performed By: #### F T4 #### [facility] [address] [address] [address] Benito Schwartz TSH RANGE SEE BELOW Normal [facility] Comment on above: Result Comment: <0.3 4 UIU/ml HYPERTHYROID 0.34-5.60 UIU/ml EUTHYROID >5.60 UIU/ml HYPOTHYROID Performed By: #### F T4 #### [facility] [address] [place] [address] Dr. Benito Schwartz US THYROIDon 03-04-2022 US [...] MALENA RIOS Date: 2022-03-04 13:56 Normal [facility] - Chemistry and C hemistry - challengeOrdered By: Enrrique Mckeon on 02-22-2022 Natriuretic peptide B (Bld) [Mass/Vol] 251.0 pg/mL High 5-100 [facility] TSH DL <= 0.005 mIU/L QnOrde red By: Enrrique Mckeon on 02-22-2022 TSH Qn m[IU]/L Low 0.45-5.33 [facility] Coding Summaryon 07-08-2021 Coding Summary [employer]Base 64 EngpqllsIVu0eFi+PGh lYWQ+UM4NIIAcP46suM UghQ2OQ3xUTI7ZUCECU IQDXZ6HJG6csHX3CQic S8KltdZc ToiscMUeVG90XDg3JRZ 1ePhpHTxvrK9eoQZxA6 h7KoNtNQ60cO55YZqmQ CAvMqW9SlRhzzkidJNw S4dpApLseBCwUfn+PHR hYmxlIHdpZHRoPScxMD EfVnXjtTcjDL7yIc5dD GVyLWNvbGxhcHNlOiBj f0maZEUyEFllJY7vvIo iF2YfpBQ7QEYnr2j0Dj 48dHI+MMBlWMN9cUrdN Hylr949AwZgu8omYIM0 kDSuODcmNKD2S60wf5T 2CCOeUEVkKPG4pYY9fT 7vvLkhweneC4RphTIyQ oJ2FZC4uYOcoZ9qgWhv bjrbxF3fAti+F50DOQ5 VTKYOZO4ZMsd4L1YdUp wvdHI+KO70OBTiFG50x OInqIZxi7kdjMe7ImKl WGBtBDF5uZabGCdcs9J yHCRqA93yqVBji6V3DO WpbEqzzTGvZkTiyWX4h C1iVXxvbwelp1ngxnte Igrqf1udgk73cR76R01 vDTqxJICtDDP0MUCuIV IkqIkmfy1taB7qXx2+I Lmdj7rby2bzlWy6LvKa HEAaohOdtKkeQBK6t9M fXn88K6QsrOiwt8PsHo h5bs18jHEsj6B0tUY4E IbfELWsaE9sBOktVxY9 PJJsFrEkaM37iNZfOIl xEr4puThvfZcjCS1rSG OjqgreRBKipT2mMPCwe WWxvExqMK6jBYKlrwfz y242CcUyLBS9HJHoaWT aU7LzdC8dTwDpNSNgOI CvA1NqmWFvGDysE529Z OxrXaM1GXSzaoKmY5Fu DLRbhLwqZrM6y3X4Ym8 Ul3AwrbmbBQH5CVblLR S4FhXfEvGxAwG6R7HpE dd6MXGvpYkqPG1iZ3Iz ZDPedonriolibPG5YOP uKRMjtV31iLCgAYonQa 7wy5U9q151BPOqOQBxh R37Go9spKscVAToqJSP bU4tdbgfw6stwygiJxE xOQIhTFi6VFn1THFipJ olAwNzJTY1HvM9CTR0r IJpzO5bwJvuhnhjjD0v Oyc+W29jtZ3aCNS8ANH 7akwnWZCvmlAjAA68GO 00E9CyYttezLIipGQ+P SHeewJmqThkSL0cDsJz v1cka5KnXOeyY8OvOON jHIwwBbm0HPWrOZA1xM L5eF6wWGPtHCtck1C3o VV8Z0VllwGzeq2zt5ha ALHkUYkoA42yzYOgh1W 2MTRjfEI5MYHbgCntOx TgeD97Phc+PGNvbGdyb 0GeNzaws1ncs8ogtDb7 IjMwJSIgdmFsaWduPSJ 8e4HbNd98X62lALbdDC RoPSIxNSUiIHZhbGlnb r0vmR2aHg4+PGNvbCB3 fYA7wC1kNUGyJeY0TOi cV858AyQpgJCeYihkr7 vfr1fqlSj2FyVjDMSne cGssKwiVSY9a0KqOn18 A76nDEgoWNRwXZKkFTR mOXLsxVkqyp7raW9uRp 8+DK4ad4hcos16iZ90w HI+AOTsRNP9pMtwAEgd AFGyoJ6kYDtlYwM7YKJ fWcJldY89iEMyKQplGb 8beXmysDzmDU4iFUStf qsbt945GlBmz0fnXTQm sHXxLQcvGAC0Q38uw4K 2MODvLRXiEOC8sAL0uT 1hbGlnbjogbGVmdDsgd pAyrBkrEHbcOKxuL132 IHRvcDsnPlBhdGllbnQ mQbRzGQb1S2GzKoy6UB ApjQkjVF5guGSiUUlrB z8koDobxMbwIE2uAJQt gvtof265OaEsa2rzWCN zfETzBKvkRLJ0V95jz1 C5HUCqZSPrYJO0qYK2w S9azYeohzppxPTbuJmd uaHqwGusSBvcHTllS86 6IHRvcDsnPkJpcnRoIE SniOK3ST29XM43dJMdx 0J1kUJ4N2DvNLCllbek hrfmzBQ0PWNbZHQiqA3 3Ms6ywLwiEa1kDVFxHS B1CARxhMQpI6VfaF8uD tFaOYXlNQOlV4IcpBCq AXnqW166DFpvZwU6KNB asgMpR0LjHXDduKekHu C4a6J6Sg3KN5R5SA31N N56pVUio0J4mEZ0Q8Yi NFBxiqglojsuiMN1PTJ qDMFyiG48Fi4svYlcIi 1xVQVyZTR0BKAxxAYiJ 4CewF8oLiYoNLVySIDe P2IwfDJcJHckL577MPi mCeX0XDKhfmOoS3EbSM MpmDkxPlU4v0D4Dh1SS Lm9CL85PQ98qGHcx5H4 xOI6F0DiRHZadjtgggj ceYX9ZAPpSDKcsY15Hc 6nxGfsWd1fIQMgXTO2S BZhqNSjR7XwxK5zDcNb FYBaAECiQ7NfrUTaHBz kB442DYajWjM4AOHslx YzU7ZiWMQwuFrhEkR7e 2T8Hd9YQMRgHU30RGS9 jPF9ZP39WC28S3NiPnf vdGFibGU+PHRhYmxlIH dpZHRoPScxMDAlJyBzd QfwIX1lPz4cUPAqVEDt zAfqgNRwDsMrt9ktSHT bKIsqAU6ppMugZ9ZniA C4YUHtq3z9Hs71F29gW 3JvdXA+JUOhgOQ3kMK1 nU3pHrVaYuN1FZyjN35 6DyZicKDkRqskv2ork1 zgqIt5OhE6XUGstaPpl DupQCI0z5CgIp02F36y IHdpZHRoPSIxNSUiIHZ roEylms6qeW7gXt6+PG QmsJL2fZP6lG0lXnUxP fR4AMmqB719QnPojSJb Efkgt1bta3zcmYj1XcJ nGYAoobXyzJsqPUS6x2 WsAg97B0LpzXvuf0CmY ml9nj17nZYpj4A9hNQ6 Q6ExUOEmcrjatCLnnSp nZJ1fFPWapwfdFCMpvK 6mFRNpG8o9AaBaZbD2U SrhX7QiiiA3QBHgiVOv SHbrXXY9E66aw4R6YEJ mENIdNQS1oQO0xE1fcQ lnbjogbGVmdDsgdmVyd WhiSLdwPFbfY146UUGo rMdeQRVslT9tMJWvyDA fyFsrWD8vPMDxqwxnKm CPZRYNDvlzXjHXOye0G 7BkKmx1DDDlpWduTA7w cMQcTLkvQc1ehTvwsZg pVA9uVDGibpllGLCfeP 2qPQMmlZAbxTfaGB7jZ WFzpzwcb222FbQlVMY3 HATsoNTkB7PqkC6wBjP lDRPiNRTiY0LxyLWhPY utE801NIzgMnO1ZCNms mFqY3YdKXEdtApxRzY6 k5M3Dh9gZz6sQM0zSWS vXA01NQ96cOElu8V3gX D8A9GyMFAhjinelszmp RC4NMDhCBBybL31fTNr TGsgPn1sl1L2d395VWU eQPOreG64Pf8yeTjkQA GdfRLCkS5wtnhin4cwf fmnDuQoNNGrYVk5PPd0 OHQbbUycXiQiUGG5OfP 4OLS1qGXfqN4jrShmdf vvfP3tXbl+NzkgWWVhc eK2G6VkLaz5UBSzbImi CU5ciTTaBFxwUa5yyKi cqSjgVD9vAICdoietWH CkzV2eLHJdgLToiNheL K5cHQEtpiroq671BiIp XCJ6UETyhQAtA6XoxD0 hEjPnYGCaDEOrF0TscY SeCRavA508KXumLbQ4C OOhjgCiO8PpLZAjaAco BgI6b5Z2No9KSPuBLU7 8MV52nHIge9G6dYD5G4 OhBKHqwpzgvbiyhWL7I YCkUGUiqP96iBGeREgq Us3lg0P7r401WTLlHNH xiI88Sj7pcBslMSFycS KDvB4wdgjjv0eminwxN xWeVIXxQSq1KYm3MXIv nTwsUyXkOXF4FwP3OPE 7gAOflK6tnAarfbfbvV 9wOyc+N2F0M0KfOakae HI+KP44CHAqMU91tIDp jTPbk6rhzSz3DqVuCWQ pBCY4dFrlYVrwq5DjYK TeG65yvBYsn4I6KUVeq EjjcAHeKfWgiZK7iH9o TYvwbhgik0osfxovFix do3kafw22aY75G36wQP dpZHRoPSIzMCUiIHZhb Bvtxw4mhP9zIg3+PGNv vZG5vUL2mC8lCrCqKpW 0LVifT446ZnMtlAYtCl ynk1jsg3dpwOh8LaSkU FIjefOnrGcjPVZ5z5Nr Ku08A83uAJunQFOrTAL zDFQvPWNooCwowx5naO 9wIi8+WY2ym5rsdg45z D48dHI+PGQnGRJ2sEod IHlqKEWfjJ1mLRnfXbD 1QJYnZeTtaX56kBInNW myQf0xxLcoaEpoPD6dE LLzdrdjg674QrIsd9kz SNAyqMIwUKsvBOF5Z22 ue7N5PTJiDKHcJUA3nV O5qT5xuMegkivjrJApq DsgdmVydGljYWwtYWxp U622OKJnkBctInUxmAH qW5jgtyOKQS7aRxzsoB Q+WHKoJAW8kLwvIZzqA VTmvA3fXLXcP5u2XbJj VcN0ARdqJ8EcbzT5VYF zaOPwZNZfiBULtG7trk jyc2gzfpyqHzNcFWQuD Mc3TGe2DIXxgYzgLnDa HLY2EuV9KXD7dBVppI8 acPfdkgweyC4bPto+Rk lOOjwvdGQ+HNLdVAZ0s AbhMEhsHDWitZ3mLSAt F2o1HsEiLgD9PHqjB9L afaC0TUZeqTYmMKGivM FVnQ6uiiufg6ccpemzN oGiJSUsAGz6IYf9RBGe zFryOwKcQSZ9WuJ4YUJ 8iNBelC8uxFppunanjG 9wOyc+TVJOOjwvdGQ+P IBgBOO2sMjlAYkhTZJs tW7hYBKvG9b7TcAiLpO 1DHpkZ0DscjX0UJUmdT EwVZRfrGZIiM9cbrrym 1qtmpqePeUvNATyIJu7 HRb3GTPdtRdjXnDcCNF 6RcS7WAN4uSBfdD7hrN gydtmiaC0mLqp+UGF5Z EV8HA89VR13V2XcIyep dGFibGU+PHRhYmxlIHd pZHRoPScxMDAlJyBzdH wiBB7fRf1gCYKvURGqj VeorVDgVdCdb2gqIOMn ZTs (more content not included)... Normal [facility] Provider Orderson 07-05-2021 Provider Orders [id number]#[id number] Normal [facility] Creatinine Lvlon 07-02-2021 eGFR Non AA 29 mL/min/1.73m2 Invalid Interpretation Code [facility] Comment on above: Performed By: #### [id number] #### [facility] (DEFAULT) [address] [place] [address] eGFR AA 35 mL/min/1.73m2 Invalid Interpretation Code [facility] Comment on above: Result Comment: Ophthalmology Surgical Technician hilda Kidney disease could be indicated at eGFRs of less than 60 ml/min/1.73m2. Kidney Failure is indicated at less than 15 ml/min/1.73m2 Performed By: #### [id number] #### [facility] (DEFAULT) [address] [place] [id number] Creatinine [Mass/Vol] 2.19 mg/dL High 0.90-1.30 [facility] Comment on above: Performed By: #### [id number] #### [facility] (DEFAULT) [address] [place] [id number] Vital Signs Date Time Vital Sign Value Performing Clinician Facility 04-22-2024 10:44-0400 Body height 180.34 cm DO [employer] Work Phone: [facility] 04-22-2024 10:44-0400 Body mass index (BMI) [Ratio] 30.2 kg/m2 DO Arnie Ball Work Phone: [facility] 04-22-2024 10:44-0400 Body weight 98.14 kg DO Arnie Ball Work Phone: [facility] 04-22-2024 10:44-0400 Diastolic blood pressure 69 mm[Hg] DO Arnie Ball Work Phone: [facility] 04-22-2024 10:44-0400 Heart rate 73 /min DO Arnie Ball Work Phone: [facility] 04-22-2024 10:44-0400 Respiratory rate 12 /min DO Arnie Ball Work Phone: [facility] 04-22-2024 10:44-0400 Systolic blood pressure 135 mm[Hg] DO Arnie Ball Work Phone: [facility] 03-01-2024 11:11-0400 Body height 180.34 cm DO Arnie Ball Work Phone: [facility] 03-01-2024 11:11-0400 Body mass index (BMI) [Ratio] 30.1 kg/m2 DO Arnie Ball Work Phone: [facility] 03-01-2024 11:11-0400 Body temperature 98 [degF] DO Arnie Ball Work Phone: [facility] 03-01-2024 11:11-0400 Body weight 97.97 kg DO Arnie Ball Work Phone: [facility] 03-01-2024 11:11-0400 Diastolic blood pressure 75 mm[Hg] DO Arnie Ball Work Phone: [facility] 03-01-2024 11:11-0400 Heart rate 67 /min DO Arnie Ball Work Phone: [facility] 03-01-2024 11:11-0400 Respiratory rate 18 /min DO Arnie Ball Work Phone: [facility] 03-01-2024 11:11-0400 SaO2% (BldA) [Mass fraction] 95 % DO Arnie Ball Work Phone: [facility] 03-01-2024 11:11-0400 Systolic blood pressure 158 mm[Hg] DO Arnie Ball Work Phone: [facility] 12-18-2023 10:07-0500 Body height 180.34 cm DO Arnie Ball Work Phone: [facility] 12-18-2023 10:07-0500 Body mass index (BMI) [Ratio] 30.2 kg/m2 DO Arnie Ball Work Phone: [facility] 12-18-2023 10:07-0500 Body weight 98.2 kg DO Arnie Ball Work Phone: [facility] 12-18-2023 10:07-0500 Diastolic blood pressure 76 mm[Hg] DO Arnie Ball Work Phone: [facility] 12-18-2023 10:07-0500 Heart rate 72 /min DO Arnie Ball Work Phone: [facility] 12-18-2023 10:07-0500 Respiratory rate 12 /min DO Arnie Ball Work Phone: [facility] 12-18-2023 10:07-0500 Systolic blood pressure 131 mm[Hg] DO Arnie Ball Work Phone: [facility] 09-01-2023 13:51-0500 Body height 180.34 cm DO Arnie Ball Work Phone: [facility] 09-01-2023 13:51-0500 Body temperature 97.7 [degF] DO Arnie Ball Work Phone: [facility] 09-01-2023 13:51-0500 Body weight 98.02 kg DO Arnie Ball Work Phone: [facility] 09-01-2023 13:51-0500 Diastolic blood pressure 79 mm[Hg] DO Arnie Ball Work Phone: [facility] 09-01-2023 13:51-0500 Heart rate 70 /min DO Arnie Ball Work Phone: [facility] 09-01-2023 13:51-0500 Respiratory rate 20 /min DO Arnie Ball Work Phone: [facility] 09-01-2023 13:51-0500 SaO2% (BldA) [Mass fraction] 96 % DO Arnie Ball Work Phone: [facility] 09-01-2023 13:51-0500 Systolic blood pressure 147 mm[Hg] DO Arnie Ball Work Phone: [facility] 08-22-2023 10:00-0500 Body height Arnie Ball Other [facility] [employer] Other 08-22-2023 10:00-0500 Body mass index (BMI) [Ratio] 29.35 kg/m2 Arnie Ball Other [place] [employer] Other 08-22-2023 10:00-0500 Body weight 98.16 kg Arnie Ball Other [employer] Other 08-22-2023 10:00-0500 Diastolic blood pressure 74 mm[Hg] Arnie Ball Other [employer] Other 08-22-2023 10:00-0500 Respiratory rate 12 /min Arnie Ball Other [employer] Other 08-22-2023 10:00-0500 Systolic blood pressure 135 mm[Hg] Arnie Ball Other [employer] Other 04-20-2023 09:30-0400 Body height Arnie Ball Other [employer] Other 04-20-2023 09:30-0400 Body mass index (BMI) [Ratio] 29.62 kg/m2 Arnie Ball Other [employer] Other 04-20-2023 09:30-0400 Body weight 99.07 kg Arnie Ball Other [employer] Other 04-20-2023 09:30-0400 Diastolic blood pressure 64 mm[Hg] Arnie Ball Other [employer] Other 04-20-2023 09:30-0400 Respiratory rate 12 /min Arnie Ball Other [employer] Other 04-20-2023 09:30-0400 Systolic blood pressure 113 mm[Hg] Arnie Ball Other [employer] Other 12-15-2022 10:00-0500 Body height Arnie Ball Other [employer] Other 12-15-2022 10:00-0500 Body mass index (BMI) [Ratio] 29.81 kg/m2 Arnie Ball Other [employer] Other 12-15-2022 10:00-0500 Body weight 99.7 kg Arnie Ball Other [employer] Other 12-15-2022 10:00-0500 Diastolic blood pressure 70 mm[Hg] Arnie Ball Other [employer] Other 12-15-2022 10:00-0500 Respiratory rate 12 /min Arnie Ball Other [employer] Other 12-15-2022 10:00-0500 Systolic blood pressure 122 mm[Hg] Arnie Ball Other [employer] Other 09-02-2022 14:11-0500 Body weight 98.9 kg DO Arnie Ball Work Phone: [facility] 09-02-2022 14:11-0500 Diastolic blood pressure 72 mm[Hg] DO Arnie Ball Work Phone: [facility] 09-02-2022 14:11-0500 Heart rate 60 /min DO Arnie Ball Work Phone: [facility] 09-02-2022 14:11-0500 Respiratory rate 20 /min DO Arnie Ball Work Phone: [facility] 09-02-2022 14:11-0500 SaO2% (BldA) [Mass fraction] 96 % DO Arnie Ball Work Phone: [facility] 09-02-2022 14:11-0500 Systolic blood pressure 153 mm[Hg] DO Arnie Ball Work Phone: [facility] 07-21-2022 10:13-0400 Diastolic blood pressure 64 mm[Hg] DO Arnie Ball Work Phone: [facility] 07-21-2022 10:13-0400 Heart rate 60 /min DO Arnie Ball Work Phone: [facility] 07-21-2022 10:13-0400 Respiratory rate 16 /min DO Arnie Ball Work Phone: [facility] 07-21-2022 10:13-0400 SaO2% (BldA) [Mass fraction] 95 % DO Arnie Ball Work Phone: [facility] 07-21-2022 10:13-0400 Systolic blood pressure 135 mm[Hg] DO Arnie Ball Work Phone: [facility] 07-21-2022 08:10-0400 Body height 180.34 cm DO Arnie Ball Work Phone: [facility] 07-21-2022 08:10-0400 Body temperature 98.2 [degF] DO Arnie Ball Work Phone: [facility] 07-21-2022 08:10-0400 Body weight 90.71 kg DO Arnie Ball Work Phone: [facility] 06-17-2022 10:25-0400 Body temperature 98.2 [degF] DO Arnie Ball Work Phone: [facility] 06-17-2022 10:25-0400 Diastolic blood pressure 58 mm[Hg] DO Arnie Ball Work Phone: [facility] 06-17-2022 10:25-0400 Heart rate 62 /min DO Arnie Ball Work Phone: [facility] 06-17-2022 10:25-0400 Respiratory rate 18 /min DO Arnie Ball Work Phone: [facility] 06-17-2022 10:25-0400 SaO2% (BldA) [Mass fraction] 98 % DO Arnie Ball Work Phone: [facility] 06-17-2022 10:25-0400 Systolic blood pressure 124 mm[Hg] DO Arnie Ball Work Phone: [facility] 06-03-2022 09:55-0400 Body height 180.34 cm DO Arnie Ball Work Phone: [facility] 06-03-2022 09:55-0400 Body weight 92.85 kg DO Arnie Ball Work Phone: [facility] Encounters Encounter Date Encounter Type Care Provider Facility Start: 07-30-2024 ambulatory [facility] Start: 07-24-2024 End: 07-24-20[facility]: 07-22-[facility]24 ambulatory [facility] Start: 07-17-2024 ambulatory [facility] Start: 07-09-2024 End: 07-09-2024 ambulatory RANDALL TELLO Not Available Start: 06-26-2024 ambulatory [facility] Start: 2024 ambulatory GREG ALEJANDRE [facility] Start: 04-22-2024 End: 04-22-2024 ambulatory DO Arnie Ball Work Phone: [facility] Work Phone: Start: 04-22-2024 End: 04-22-2024 Patient encounter procedure DO Arnie Maddi Work Phone: [facility] Work Phone: Start: 04-11-2024 ambulatory [facility] Start: 04-09-2024 ambulatory [facility] Start: 04-02-2024 ambulatory GREG [facility] Start: 04-02-2024 Encounter for preprocedural cardiovascular examination [facility] Start: 03-29-2024 End: 03-29-2024 [facility] Start: 03-05-2024 End: 03-05-2024 ambulatory [facility] Start: 03-01-2024 End: 03-01-2024 ambulatory DO Arnie Maddi Work Phone: [facility] Work Phone: Start: 03-01-2024 End: 03-01-2024 Patient encounter procedure DO Arnie Maddi Work Phone: [facility] Work Phone: Start: 03-01-2024 Registered Recurring DO Jeremi in Ball [facility] Work [facility]: Start: 02-21-2024 End: 02-21-2024 ambulatory RANDLAL TELLO Not Available Start: 02-01-2024 Non-patient / Non-visit DO Aguilar price Maddi Work Phone: [facility] Work Phone: Start: 12-19-2023 Non-patient / Non-visit DO Aguilar albert Linda Work Phone: [facility] Work Phone: Start: 12-18-2023 End: 12-18-2023 ambulatory Arnie Linda Other [facility] Other Start: 12-18-2023 Telephone encounter Arnie Linda [facility] Maddi [facility] Start: 12-18-2023 End: 12-18-2023 Patient encounter procedure DO Arnie [place] Work Phone: [facility] Work Phone: Start: 09-29-2023 End: 09-29-2023 ambulatory Arnie Linda Other [employer] [facility] [employer] Other Start: 09-29-2023 Telephone encounter Arnie Linda [facility] Start: 09-22-2023 End: 09-22-2023 ambulatory DAWN LARASONIA [facility] Start: 09-04-2023 End: 09-04-2023 ambulatory TRANG DEGROOT [facility] Start: 09-01-2023 ambulatory Kalia Sánchez Facility: [facility] Start: 09-01-2023 End: 09-01-2023 ambulatory DO Arnie [place] Work Phone: [facility] Work Phone: Start: 09-01-2023 End: 09-01-2023 Registered Recurring DO Arnie [place] Work Phone: [facility] Work Phone: Start: 08-27-2023 End: 08-27-2023 ambulatory Arnie Linda Other [employer] [facility] [employer] Other Start: 08-27-2023 Telephone encounter Arnie Linda [facility] Start: 08-22-2023 End: 08-22-2023 ambulatory Arnie Linda Other [employer] [facility] [employer] Other Start: 08-22-2023 Office outpatient vi sit 25 minutes Arnie Maddi [facility] Start: 07-03-2023 End: 07-03-2023 ambulatory Arnie [place] Other [facility] Other Start: 07-03-2023 Telephone encounter Arnie Linda [facility] Start: 07-01-2023 End: 07-01-2023 ambulatory Arnie [place] Other [facility] Other Start: 07-01-2023 Telephone encounter Arnie Linda [facility] Start: 06-22-2023 End: 06-22-2023 ambulatory Arnie Linda Other [employer] [facility] Other Start: 06-22-2023 Telephone encounter Arnie Linda [facility] Start: 06-12-2023 End: 06-12-2023 ambulatory Arnie Linda Other [employer] [facility] [employer] Other Start: 06-12-2023 Telephone encounter Arnie Linda [facility] Start: 04-26-2023 End: 04-26-2023 ambulatory Arnie Linda Other [employer] [facility] Other Start: 04-26-2023 Telephone encounter Arnie Linda [facility] Start: 04-20-2023 End: 04-20-2023 ambulatory Arnie Linda Other [employer] [facility] [employer] Other Start: 04-20-2023 Office outpatient vi sit 25 minutes Arnie Linda [facility] Start: 03-14-2023 End: 03-14-2023 ambulatory Arnie Linda Other [employer] [facility] [employer] Other Start: 03-14-2023 Telephone encounter Arnie Linda [facility] Start: 02-28-2023 End: 03-01-[address] DOCTOR EDWARDS Facility:[id number] Start: 02-15-2023 Telephone encounter Arnie Linda [facility] Start: 02-15-2023 End: 02-16-[address] DOCTOR EDWARDS [facility] Other Start: 02-14-2023 End: 02-14-2023 ambulatory Anrie Linda Other [employer] [facility] Other Start: 02-14-2023 Telephone encounter Arnie Linda [facility] Start: 01-11-2023 End: 01-11-2023 ambulatory Arnie Linda Other [employer] [facility] Other Start: 01-11-2023 Office outpatient vi sit 15 minutes Arnie Linda [facility] Start: 01-02-2023 End: 01-03-2023 ambulatory AVERY SYED MD Facility:[facility] Start: 12-15-2022 End: 12-15-2022 ambulatory Arnie Linda Other [employer] Other Start: 12-15-2022 Patient encounter procedure Arnie Linda [facility] Start: 11-16-2022 End: 11-17-[address] ARNIE LINDA Facility:H1 Start: 11-14-2022 End: 11-14-2022 ambulatory Arnie Linda Other [employer] Other Start: 11-14-2022 Telephone encounter Arnie Linda [facility] Start: 10-03-2022 End: 10-04-[address] ARNIE LINDA Facility:H1 Start: 09-22-2022 End: 09-23-[address] DOCTOR EDWARDS Facility:H1 Start: 09-09-2022 End: 09-10-[address] DOCTOR EDWARDS Facility:H1 Start: 09-02-2022 End: 09-02-2022 ambulatory DO Arnie Linda Work Phone: [facility] Work Phone: Start: 09-02-2022 End: 09-02-2022 Registered Recurring DO Arnie Linda Work Phone: [facility] Start: 08-30-2022 End: 08-31-[address] ARNIE LINDA Facility:H1 Start: 07-21-2022 End: 07-21-2022 Admission to same day surgery center DO Arnie Linda Work Phone: [facility] Start: 07-21-2022 End: 07-21-2022 ambulatory DO Arnie Linda Work Phone: [facility] Work Phone: Start: 07-20-2022 End: 07-21-[address] ARNIE LINDA Facility:H1 Start: 07-19-2022 End: 07-19-2022 ambulatory DO Arnie Linda Work Phone: [facility] Work Phone: Start: 07-19-2022 End: 07-19-2022 Patient encounter procedure DO Arnie Linda Work Phone: [facility] Start: 07-07-[address] DAWN ORTIZ Fac ility:H1 Start: 06-21-2022 Adult health examination Gume Linda Other [facility] [employer] Other Start: 06-17-2022 Registered Recurring DO Jeremi in [place] Work Phone: [facility] Start: 06-03-2022 End: 06-03-2022 Registered Recurring DO Arnie Linda Work Phone: [facility] Start: 05-31-2022 End: 05-31-2022 Patient encounter procedure DO Arnie Linda Work Phone: [facility] Start: 05-12-2022 End: 05-13-2022 ambulatory AVERY SYED MD Facility:H1 Start: 05-10-2022 End: 05-11-2022 ambulatory FERMIN SANCHEZ Facility:H1 Start: 04-26-2022 End: 04-27-[address] DOCTOR EDWARDS Facility:H1 Start: 04-11-2022 End: 07-07-[address] ARNIE LINDA Facility:H1 Start: 04-08-2022 End: 04-09-[address] ARNIE LINDA Facility:H1 Start: 03-30-2022 End: 04-02-2022 Evaluation and management of inpatient GILMER SALAZAR Facility:[facility] Start: 03-25-2022 End: 03-26-2022 ambulatory ENRRIQUE MCKEON Facility:H1 Start: 03-11-2022 ambulatory ENRRIQUE MCKEON Facility :H1 Start: 03-06-2022 End: 03-07-2022 Evaluation and management of inpatient DR RUPINDER GRIGSBY . Facility:H1 Start: 03-04-2022 End: 03-05-[address] ARNIE BALL Facility:[facility]1 Start: 08-17-2021 End: 08-17-2021 Pre-procedure evaluation check Arnie Linda Other [employer] Other Start: 08-15-2021 Bradycardia DO Arnie Quezada ll Work Phone: [facility] Procedures Date Procedure Procedure Detail Performing Clinician Start: 02-22-2024 CT of abdomen and pe lvis without contrast DO Arnie Linda Work Phone: Start: 02-22-2024 CT of chest without contrast DO Arnie Linda Work Phone: Start: 08-30-2023 Carcinoembryonic antigen cea Kalia Gonzalo Comment on above: Result Comment: PERF ORMED BY: [place] [id number] PATHOLOGIST [employer] TRU UMANZOR M.D. Performed By: #### F ER, CEA, CBC, FE and TIBC, CMP #### [facility] [address] [place] [address] Start: 08-30-2023 CT of abdomen and pe lvis without contrast DO Arnie Linda Work Phone: Start: 08-30-2023 CT of chest without contrast DO Arnie Linda Work Phone: Start: 02-28-2023 Carcinoembryonic antigen cea Kalia Sánchez Comment on above: Result Comment: PERF ORMED BY: [facility] [address] [place] [address] PATHOLOGIST [employer] TRU UMANZOR M.D. Performed By: #### C MP, FE and TIBC, CBC, CEA, TONY ####[facility] [id number] Start: 02-28-2023 CT of abdomen and pe lvis without contrast DO Arnie Linda Work Phone: Start: 02-28-2023 CT of chest without contrast DO Arnie Linda Work Phone: Start: 01-02-2023 PSA screening FERMIN B OES Comment on above: Performed By: #### F T4, PSASC #### [facility] [address] [address] [address] Benito Schwartz Start: 08-31-2022 CT of [...] [place] Other Start: 08-24-2016 Pre-surgery evaluation Arnie [place] Other Start: 08-24-2016 Preoperative cardiov ascular examination Arnie [place] Other Start: 01-01-2015 Screening for malign ant neoplasm of prostate Arnie [place] Other Depression screening Benjami n [place] Other SARS Antigen (LFIA) DO Gume min Ball Work Phone: Screening for malign ant neoplasm of prostate Arnie [place] Other Plan of Treatment Date Care Activity Detail Author Start: 07-21-2022 [facility] Start: 06-17-2022 Registered Recurring Colon cancer [facility] Start: 06-17-2022 [facility] Start: 06-10-2022 [facility] Start: 02-22-2022 CT abdomen pelvis w con CT abdomen pelvis w con [facility] Start: 02-22-2022 CT chest w con CT chest w con [facility] Carcinoembryonic Ag [Mass/volume] in Serum or Plasma [facility] Work Phone: Carcinoembryonic Ag [Mass/volume] in Serum or Plasma [facility] Carcinoembryonic Ag [Mass/volume] in Serum or Plasma [facility] Comprehensive metabo lic 1999 panel - Serum or Plasma [facility] Work Phone: Comprehensive metabo lic 1999 panel - Serum or Plasma [facility] Comprehensive metabo lic 1999 panel - Serum or Plasma [facility] Comprehensive metabo lic 1999 panel - Serum or Plasma [facility] Comprehensive metabo lic 1999 panel - Serum or Plasma [facility] Comprehensive metabo lic 1999 panel - Serum or Plasma [facility] CT Abdomen and Pelvi s W contrast IV [facility] Work Phone: CT Abdomen and Pelvi s W contrast IV [facility] CT Abdomen and Pelvi s W contrast IV [facility] CT Abdomen and Pelvi s W contrast IV [facility] CT Abdomen and Pelvi s WO contrast [facility] Work Phone: CT Abdomen and Pelvi s WO contrast [facility] CT Abdomen and Pelvi s WO contrast [facility] CT Chest W contrast IV [facility] Work Phone: CT Chest W contrast IV [facility] Chest W contrast IV [facility] Chest W contrast IV [facility] Chest WO contrast [facility] Work Phone: [facility] Chest WO contrast [facility] Erythropoietin (EPO) [Units/volume] in Serum or Plasma [facility] Ferritin [Mass/volum e] in Serum or Plasma [facility] Patient Education Hemorrhoids Co arelis Polyps [facility] Immunizations Immunization Date Immunization Notes Care Provider Fa cility 07-10-2022 COVID-19 Pfizer (bivalent) Arnie Linda Other [facility] 07-10-2022 COVID-19 Pfizer (Pediatric) Arnie Linda Other [facility] 07-04-2022 influenza virus vaccine, split virus (incl. purified surface antigen) Arnie Linda Other [email or web address] [facility] [employer] Other 07-04-2022 influenza virus vaccine, unspecified formulation DO Arnie Linda Work Phone: [facility] 07-04-2022 influenza, high dose seasonal, preservative-free Arnie Linda Other [email or web address] [facility] [employer] Other 02-07-2022 COVID-19 Pfizer Arnie Yoav kasia Other [facility] 02-07-2022 COVID-19 Vaccine Pfi zer - Documentation Purposes Only Arnie Linda Other [facility] 07-28-2021 influenza virus vaccine, split virus (incl. purified surface antigen) Arnie Linda Other [employer] Other 07-28-2021 influenza virus vaccine, unspecified formulation DO Arnie Linda Work Phone: [facility] 07-15-2021 COVID-19 mRNA, Comirnaty (Pfizer) DO Arnie Linda Work Phone: [facility] 12-03-2020 COVID-19 mRNA, Comirnaty (Pfizer) DO Arnie Linda Work Phone: [facility] 11-12-2020 COVID-19 mRNA, Comirnaty (Pfizer) DO Arnie Linda Work Phone: [facility] 06-30-2020 influenza virus vaccine, split virus (incl. purified surface antigen) Arnie Linda Other [employer] Other 06-30-2020 influenza virus vaccine, unspecified formulation DO Arnie Linda Work Phone: [facility] 07-19-2019 influenza virus vaccine, split virus (incl. purified surface antigen) Arnie Linda Other [facility] [employer] Other 07-19-2019 influenza virus vaccine, unspecified formulation DO Arnie Linda Work Phone: [facility] 07-17-2018 influenza virus vaccine, split virus (incl. purified surface antigen) Arnie Linda Other [facility] [employer] Other 07-17-2018 influenza virus vaccine, unspecified formulation DO Arnie Linda Work Phone: [facility] 12-25-2017 diphtheria, tetanus toxoids and acellular pertussis vaccine, unspecified formulation Arnie Linda Other [facility] 07-24-2017 influenza virus vaccine, split virus (incl. purified surface antigen) Arnie Linda Other [facility] [employer] Other 07-24-2017 influenza virus vaccine, unspecified formulation DO Arnie Linda Work Phone: [facility] 07-12-2016 influenza virus vaccine, split virus (incl. purified surface antigen) Arnie Linda Other [facility] [employer] Other 07-12-2016 influenza virus vaccine, unspecified formulation DO Arnie Linda Work Phone: [facility] 05-26-2016 pneumococcal Conjuga te, unspecified formulation; Translations: [Need for prophylactic vaccination against Streptococcus pneumoniae (pneumococcus)] Arnie Linda Other [facility] [employer] Other 05-26-2016 pneumococcal conjuga te vaccine, 13 valent Arnie Linda Other [facility] 07-08-2015 influenza virus vaccine, split virus (incl. purified surface antigen) Arnie Linda Other [employer] Other 07-08-2015 influenza virus vaccine, unspecified formulation DO Arnie Linda Work Phone: [facility] 08-02-2013 tetanus and diphther ia toxoids, adsorbed, preservative free, for adult use (5 Lf of tetanus toxoid and 2 Lf of diphtheria toxoid) Arnie Linda Other [facility] 08-02-2013 pneumococcal polysaccharide vaccine, 23 valent Arnie Linda Other [facility] 06-27-2012 tetanus and diphther ia toxoids, adsorbed, preservative free, for adult use (5 Lf of tetanus toxoid and 2 Lf of diphtheria toxoid) Arnie Linda Other [facility] Payers Date Payer Category Payer Medicare [id number] 1959 Self-pay [id number] 1959 Unknown [id number] 1940 Unknown [id number] 2.16.8 40.1.900506.3.579.2.647 1940 Unknown [id number] 2.16.84 0.1.580668.3.579.2.593 1942 Unknown [id number] 2.16.84 0.1.207841.3.579.2.593 1942 Unknown [id number] 2.16.84 0.1.181300.3.579.2.593 1942 Unknown [id number] 2.16.84 0.1.806370.3.579.2.593 1942 Unknown [id number] 2.16.84 0.1.550865.3.579.2.593 1942 Unknown [id number] 2.16.84 0.1.532523.3.579.2.593 1942 Unknown [id number] 2.16.84 0.1.077000.3.579.2.593 1942 Unknown [id number] 2.16.84 0.1.145486.3.579.2.593 1942 Unknown [id number] 2.16.84 0.1.475351.3.579.2.593 1942 Unknown [id number] 2.16.84 0.1.541842.3.579.2.593 1942 Unknown [id number] 2.16.84 0.1.345372.3.579.2.593 1942 Unknown [id number] 2.16.84 0.1.375554.3.579.2.593 1942 Unknown [id number] 2.16.84 0.1.573318.3.579.2.593 1942 Unknown [id number] 2.16.84 0.1.202257.3.579.2.593 1942 Unknown [id number] 2.16.84 0.1.597777.3.579.2.593 1942 Unknown [id number] 2.16.84 0.1.656812.3.579.2.593 1942 Unknown [id number] 2.16.84 0.1.867292.3.579.2.593 1942 Unknown [id number] 2.16.84 0.1.379872.3.579.2.593 1942 Unknown [id number] 2.16.84 0.1.896957.3.579.2.593 1942 Unknown [id number] 2.16.84 0.1.805839.3.579.2.593 1942 Unknown [id number] 2.16.84 0.1.345819.3.579.2.593 1942 Unknown [id number] 2.16.84 0.1.252463.3.579.2.1259 1942 Unknown [id number] 2.16.84 0.1.271665.3.579.2.1259 Unknown [id number] 2.16.84 0.1.995283.3.579.2.593 Unknown [id number] 2.16.8 40.1.747990.3.579.2.531 Social History Date Type Detail Facility Start: 06-03-2022 End: 04-22-2024 Tobacco smoking status NHIS Ex-smoker (finding) [facility] Start: 1940 Sex Assigned At Male F [facility] Start: 10-16-1959 End: 10-16-1981 Sex Assigned At [facility] Somewhere Other Medical Equipment Procedure Code Equipment Code Equipment Origin al Text Equipment Identifier Dates Blood Sugar Diagnostic (Contour Next Test Strips) strip Start: 12-15-2023 Blood Sugar Diagnostic (Contour Next Test Strips) strip Start: 12-15-2023 Goals Date Patient Goal Desired Activity /State Clinical Notes 08-31-2021 to 03-29-2024 Note Date & Type Note Facility 03-29-2024 Note [place] [facility] - [facility] Subjective Nas Ren is a 83 y.o. year old male patient being seen for 6 mo follow up chronic systolic heart failure, persistent afib, CAD, hypertension, and dilated cardiomyopathy s/p ICD. His device was interrogated last month, and he had lipid profile in December 2023. His director of residence life switched him from Bumex to Lasix due [...] Judgment: Judgment normal. Allergies Allergies Allergen Reactions Amxtbkf-Xiu-Ims Reductase Inhibitors Tramadol Medications Current Outpatient Medicat (more content not included)... 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 No bleeding complications Aug, Mucopurulent chronic bronchitis [...] use, the patient reduces the risk for SC, CVA, HTN, cardiac dysrhythmias and sudden cardiac [...] the risk for cerebrovascular and cardiovascular disease. [employer] Other 09-07-2023 Evaluation note* Encounter Date Diagnosis Assessment Notes Treatment Notes Treatment Clinical Notes Jun, Hypothyroidism due t o medication (ICD-10 - E03.2) [employer] Other 07-06-2023 Evaluation note* Encounter Date Diagnosis [...] use, the patient reduces the risk for SC, CVA, HTN, cardiac dysrhythmias and sudden cardiac [...] are maintaining regular scheduled appts with their printed circuit layout taper. No bleeding compliations Initiated on [employer] Other 05-30-2023 Evaluation note* Encounter Date Diagnosis Assessment Notes Treatment Notes Treatment Clinical Notes February, Hypothyroidism due t o medication (ICD-10 - E03.2) [employer] Other 05-19-2023 Progress [facility] March 03, 2023 2:31pm Note Date/Time March 03, 2023 2:21p m [facility] [place] [address] Hem/Onc Follow Up Note - OP Signed Patient: Nas Ren MR#: [id number] : 1940 Acct:[id number] Age/Sex: 82 / M Type: REG RCR [...] for coordination of care (as documented) and zxna-md-iipo counseling of patient and/or family. [facility] - Medical History Medical History: Medical History [...] Calcium 8.8, Iron 56, TIBC 281, Iron Takxxvfciu59.9 L, Transferrin 201 L, Ferritin 236.7, Total [...] % (Auto) 68.3, Lymph % (Auto) 17.9, Barton % (Auto) 9.6, Eos % (Auto) 3.6, Baso % (Auto) 0.6, Nucleat RBC Rel Count 0.3, Neut # (Auto) 6.6, Lymph # (Auto) 1.7, Barton # (Auto) 0.9 H, Eos # (Auto) 0.3, Baso # (Auto) 0.1 - Home Medications and Allergies Allergies/Adverse Reactions: Allergies Iyimxmf-YQI-SlY Reductase Inhibitor [Niczgvk-Adb-Vyj Reductase Inhibitor] Allergy (Verified 03/03/23 13:45) Muscle [...] <Electronically signed by EDWARD Nelson> 03/03/23 1431 [facility] Work Phone: 1(225) 463-829805-02-2023 Evaluation note* Encounter Date Diagnosis Assessment Notes Treatment Notes Treatment Clinical Notes February, Thyrotoxicosis (ICD-10 - E05.90) [employer] Other 03-29-2023 Evaluation note* Encounter Date Diagnosis [...] cardiomyopathy (ICD-10 - I42.0) Continue healthy diet. [employer] Other 03-02-2023 Evaluation note* Encounter Date Diagnosis [...] use, the patient reduces the risk for SC, CVA, HTN, cardiac dysrhythmias and sudden cardiac [...] Z12.5) Dec, Cardiac pacemaker (ICD-10 - Z95.0) [employer] Other 01-30-2023 Evaluation note* Encounter Date Diagnosis Assessment Notes Treatment Notes Treatment Clinical Notes Oct, Other thyrotoxicosis without thyrotoxic crisis or storm (ICD-10 - E05.80) [employer] Other 11-18-2022 Progress note Author Chivo Keller [facility] September 02, 2022 2:38pm Note Date/Time September 02, 2022 2:33pm [facility] [address] [address] Hem/Onc Follow Up Note - OP Signed Patient: Nas Ren MR#: [id number] : 1940 Acct:[id number] Age/Sex: 82 / M Type: REG RCR [...] for coordination of care (as documented) and aryc-dc-ffws counseling of patient and/or family. [facility] - Medical History Medical History: Medical History [...] (Last Reviewed 08/31/21 @ 08:58 by Quin Kimi) Father CHF (congestive heart failure) Mother Diabetes [...] % (Auto) 68.3, Lymph % (Auto) 18.5, Barton % (Auto) 8.4, Eos % (Auto) 4.3, Baso % (Auto) 0.5, Neut # (Auto) 4.6, Lymph # (Auto) 1.2, Barton # (Auto) 0.6, Eos # (Auto) 0.3, Baso # (Auto) 0.0, Nucleated RBC % (auto) 0.1 - Home Medications and Allergies Allergies/Adverse Reactions: Allergies Yeonwrt-ZSA-VcZ Reductase Inhibitor [Wbzsxki-Bko-Cpc Reductase Inhibitor] Allergy (Verified 09/02/22 14:10) Muscle [...] 30 Signed By: <Electronically signed by Chivo Keller II, DO> 09/02/22 1438 [facility] Work Phone: 1(531) 671-136710-06-2022 Procedure [facility]08-19-2022 Progress note Author Leigha Nelson [facility] June 03, 2022 10:35am Note Date/Time June 03, 2022 10 :10am [facility] [place] [address] Hem/Onc Follow Up Note - OP Signed Patient: Nas Ren MR#: [id number] : 1940 Acct:[id number] Age/Sex: 82 / M Type: REG RCR [...] for coordination of care (as documented) and oqup-zo-smiw counseling of patient and/or family. [facility] - Medical History Medical History: Medical History [...] % (Auto) 69.9, Lymph % (Auto) 17.2, Barton % (Auto) 8.0, Eos % (Auto) 4.1, Baso % (Auto) 0.8, Neut # (Auto) 6.2, Lymph # (Auto) 1.5, Barton # (Auto) 0.7, Eos # (Auto) 0.4, Baso # (Auto) 0.1, Nucleated RBC % (auto) 0.0 - Home Medications and Allergies Allergies/Adverse Reactions: Allergies Vzogktl-TIK-YnO Reductase Inhibitor [Rvpduna-Znz-Ufb Reductase Inhibitor] Allergy (Verified 06/03/22 09:55) Muscle [...] <Electronically signed by EDWARD Nelson> 06/03/22 1035 [facility] Work Phone: 1(822) 113-684406-18-2022 NoteMR#: [id number] I [facility] Pt. Name: Nas Ren Admitted: 03/30/2022 Discharged: 04/02/2022 Date of : 1940 Physician: Gilmer Salazar MD DISCHARGE SUMMARY CONSULTING SERVICES: 1. Nephrology Service. 2. Endocrinology service. 3. Cardiology service. PRINCIPAL DIAGNOSES: 1. Dziwa-cq-neqosch heart failure, reduced ejection fraction of 35%. 2. Acute kidney injury on chronic kidney disease, stage 4, resolved. 3. Dyspnea, on exertion. 4. Essential hypertension. 5. History of coronary artery disease. 6. Iodine-induced hyperthyroidism, uncontrolled. 7. Ykh-ksatpof-vonxklyzi diabetes mellitus, diet controlled, A1c 6.4. 8. [...] is a 81-year-old male who presented to [facility] with chief complaint of dyspnea on exertion. [...] overload occurs, he is to call his printed circuit layout taper and/or PCP. The patient also require repeat [...] Adler PA-C Date Trans: 04/02/2022 02:36 P/racho [id number] cc: Arnie Linda D.O. [address] [place] [address] A [facility] [address] [facility]05-21-2022 NotePROCEDURE: XR CHEST 1 V REASON [...] Electronically authenticated by: NICK OLMEDO Date: 2022-03-05 21:29[facility]05-15-2022 Progress note Author Chivo Keller [facility] February 27, 2022 12:52pm Note Date/Time February 25, 2022 12:11 pm [facility] [place] [id number] Hem/Onc Follow Up Note - OP Signed Patient: Nas Ren MR#: [id number] : 1940 Acct:[id number] Age/Sex: 81 / M Type: REG RCR [...] for coordination of care (as documented) and qqgs-ry-pxoi counseling of patient and/or family. [facility] - Medical History Medical History: Medical History [...] % (Auto) 65.1, Lymph % (Auto) 19.2, Barton % (Auto) 13.3, Eos % (Auto) 1.8, Baso % (Auto) 0.6, Neut # (Auto) 4.2, Lymph # (Auto) 1.2, Barton # (Auto) 0.9H, Eos # (Auto) 0.1, [...] Home Medications and Allergies Allergies/Adverse Reactions: Allergies Hsawyqw-BAS-XzJ Reductase Inhibitor [Udqedqc-Twu-Cgh Reductase Inhibitor] Allergy (Verified 02/25/22 11:39) Muscle [...] by Chivo Keller II, DO> 02/27/22 1252 [facility] Work Phone: 1(919) 121-140711-16-2021 Consult note Author Nikunj Shultz [facility] August 31, 2021 9:50am Note Date/Time August 31, 2021 9:33am [facility] [address] [place] [address] Hem/Onc Consult Note - OP Signed Patient: Nas Ren MR#: [id number] : 1940 Acct:[id number] Age/Sex: 81 / M Type: REG RCR [...] He has recovered well from surgery. [facility] - Medical History Medical History: Medical History [...] Type: None Home Medications & Allergies Allergies Pvpxbss-JWO-UpV Reductase Inhibitor [Gtrngio-Rer-Cvt Reductase Inhibitor] Allergy (Verified 08/31/21 08:57) Muscle [...] or Bravo syndrome. I will discuss with [facility] genetics and refer the patient for genetic testing. - Time with Patient Coordination of Care & Counseling Time: Greater than 50% of time spent with patient was for coordination of care (as documented) and wqir-ew-vlyx counseling of patient and/or family. Dictated By: Nikunj Shulzt MD DD/ 0932 Signed By: <Electronically signed by MD Nikunj Shultz> 08/31/21 0950 [facility] Work Phone: Evaluation note* Diagnosis Onset Date Resolution Status Colon cancer acute [facility] Work Phone: Evaluation noteNo [facility] [employer] Other Evaluation note* Diagnosis Onset Date Resolution [...] (prostate specific antigen) noneactive Colon cancer acute [facility] Work Phone: Evaluation note* Diagnosis Onset [...] Type 2 diabetes mellitus with hyperglycemia acute [facility] Work Phone: History and physical note Author Ramesh Rascon [facility] July 21, 2022 9:27am Note Date/Time July 21, 2022 9: 27am [facility] [address] [place] [address] Gastroenterology H&P Signed Patient: Nas Ren MR#: [id number] : 1940 Acct:[id number] Age/Sex: 82 / M Adm Date: 2 Loc: Room: Type: [facility] Attending Dr: Ramesh Rascon MD Copies to: [...] <Electronically signed by Ramesh Rascon MD> 07/21/22926 [facility] Work Phone: History general Narrative - [...] HEART CATH 04/2016 Hospitalization History See above [employer] Other History general Narrative - Reported* Type [...] History INSERTION OF DUAL LEAD PACEMAKE R 420 Surgical History HEMICOLECTOMY, RIGHT 08/2021 Surgical History RHC- RIGHT HEART CATH 03/2016- Surgical History LHC- LEFT HEART CATH 04/2016 Surgical History Colonoscopy w/ polypectomy, rep eat in year 07/2022 Hospitalization History See above [employer] [facility] Other History general Narrative - Reported* Type [...] History INSERTION OF DUAL LEAD PACEMAKE R 420 Surgical History HEMICOLECTOMY, RIGHT 08/2021 Surgical History RHC- RIGHT HEART CATH 03/2016- Surgical History LHC- LEFT HEART CATH 04/2016 Surgical History Colonoscopy w/ polypectomy, rep eat in year 07/2022 Surgical History Biventricular ICD 05/2023 Hospitalization History See above [employer] [facility] [employer] Other Hospital Discharge instructions Additional Instructions DISCHARGE [...] NOT operate machinery such as power tools, [employer] mowers, snow blowers, sewing machines, etc. for [...] Follow up with PCP. - Office number [phone].[facility] Work Phone: Progress note Author Leigha Nelson [facility] June 03, 2022 10:35am Note Date/Time June 03, 2022 10 :10am [facility] at [address] [address] Hem/Onc Follow Up Note - OP Signed Patient: Nas Ren MR#: [id number] : 1940 Acct:[id number] Age/Sex: 82 / M Type: REG RCR [...] for coordination of care (as documented) and asnx-cv-ispf counseling of patient and/or family. [facility] - Medical History Medical History: Medical History [...] % (Auto) 69.9, Lymph % (Auto) 17.2, Barton % (Auto) 8.0, Eos % (Auto) 4.1, Baso % (Auto) 0.8, Neut # (Auto) 6.2, Lymph # (Auto) 1.5, Barton # (Auto) 0.7, Eos # (Auto) 0.4, Baso # (Auto) 0.1, Nucleated RBC % (auto) 0.0 - Home Medications and Allergies Allergies/Adverse Reactions: Allergies Xckciai-FHV-KrW Reductase Inhibitor [Fffzhow-Avs-Rss Reductase Inhibitor] Allergy (Verified 06/03/22 09:55) Muscle [...] <Electronically signed by EDWARD Nelson> 06/03/22 1035 [facility] Work Phone: Progress note Author Chivo Keller [facility] September 02, 2022 2:38pm Note Date/Time September 02, 2022 2:33pm [facility] Center at [place] [id number] Hem/Onc Follow Up Note - OP Signed Patient: Nas Ren MR#: [id number] : 1940 Acct:[id number] Age/Sex: 82 / M Type: REG RCR Copies to: MD Arnie Lui,DOEmilinao Date of Service: 09/02/2022 Time of Service: [...] for coordination of care (as documented) and hoiv-wt-bfjb counseling of patient and/or family. [facility] - Medical History Medical History: Medical History [...] History (Last Reviewed 07/21/22 @ 08:16 by eBv Mustafa RN) History of left knee replacement [...] % (Auto) 68.3, Lymph % (Auto) 18.5, Barton % (Auto) 8.4, Eos % (Auto) 4.3, Baso % (Auto) 0.5, Neut # (Auto) 4.6, Lymph # (Auto) 1.2, Barton # (Auto) 0.6, Eos # (Auto) 0.3, Baso # (Auto) 0.0, Nucleated RBC % (auto) 0.1 - Home Medications and Allergies Allergies/Adverse Reactions: Allergies Yqlbqor-QLX-NnD Reductase Inhibitor [Rcjkvba-Tcp-Oxb Reductase Inhibitor] Allergy (Verified 09/02/22 14:10) Muscle [...] by Chivo Keller II, DO> 09/02/22 1438 [facility] Work Phone: Progress note Author Chivo Keller [facility] September 01, 2023 2:14pm Note Date/Time September 01, 2023 2:09pm [facility] [place] [address] Hem/Onc Follow Up Note - OP Signed Patient: Nas Ren MR#: [id number] : 1940 Acct:[id number] Age/Sex: 83 / M Type: REG RCR [...] for coordination of care (as documented) and ohdu-pu-jere counseling of patient and/or family. [facility] - Medical History Medical History: Medical History [...] (Last Reviewed 08/31/21 @ 08:58 by Quin Kimi) Father CHF (congestive heart failure) Mother Diabetes [...] Calcium 9.7, Iron 84, TIBC 290, Iron Iyrqwobpso13.0, Transferrin 207, Ferritin 239.3, Total Bilirubin 0.8, AST 23, ALT 20, Alkaline Phosphatase 114 H, Total Protein 6.9, Albumin 4.4, Globulin 2.5, Albumin/Globulin Ratio 1.8 08/30/23 09:32: Corrected WBC 7.0, Uncorrected WBC Count 7.0, RBC 3.96, Hgb 12.3L, Hct 36.8 L, MCV 92.8, MCH 30.9, MCHC 33.3, RDW 14.8, Plt Count 206, MPV 7.6, Neut % (Auto) 65.9, Lymph % (Auto) 21.9, Barton % (Auto) 7.9, Eos % (Auto) 3.8, Baso % (Auto) 0.5, Nucleat RBC Rel Count 0.1, Neut # (Auto) 4.6, Lymph # (Auto) 1.5, Barton # (Auto) 0.5, Eos # (Auto) 0.3, Baso # (Auto) 0.0 - Home Medications and Allergies Allergies/Adverse Reactions: Allergies Jdfydae-BAK-HuB Reductase Inhibitor [Wqsknld-Ufk-Bgl Reductase Inhibitor] Allergy (Verified 03/03/23 13:45) Muscle [...] Dictated By: Chivo Keller II, DO DD/ [id number] Signed By: <Electronically signed by Chivo Keller II, DO> 09/01/23 1414 [facility] Work Phone: Progress note Author Chivo Keller [facility] March 01, 2024 11:39am Note Date/Time March 01, 2024 11:18 am [facility] [place] [address] Cancer Center Note Signed Patient: Nas Ren MR#: [id number] : 1940 Acct:[id number] Age/Sex: 83 / M Type: REG AMB Date of Service: 03/01/24 Copies to: Arnie Linda DO~ Assessment & Plan A/P (1) Colon cancer: [...] Allergy (Unknown, Verified 12/18/23 10:02) Unknown Reaction Zfmzgyj-HLJ-DbC Reductase Inhibitor [Sjirclr-Ecz-Ism Reductase Inhibitor] Allergy (Unknown, Verified 12/18/23 10:02) [...] PO DAILY ezetimibe 10 mg PO DAILY lzultommqke-mkipcxeek-jvqheevg 200-62.5-25 mcg (Trelegy Ellipta) 1 inh inhalation [...] concerns voiced at time of intake. [facility] Medical History Medical History (Updated 01/30/24 @ [...] signed by Chivo Keller II, DO> 03/01/24 1139 [facility] Work Phone: Summary Purpose Family History [...] section and content) DATE CREATED AUTHOR 07/09/2021 [facility] DATE CREATED AUTHOR AUTHOR'S ORGANIZ ATION 06/10/2022 [facility] DATE CREATED AUTHOR AUTHOR'S ORGANIZ ATION 03/01/2023 [facility] DATE CREATED AUTHOR AUTHOR'S ORGANIZ ATION 02/24/2024 [facility] DATE CREATED AUTHOR AUTHOR'S ORGANIZ ATION 07/11/2024 [facility] EPIC DATE CREATED AUTHOR AUTHOR'S ORGANIZ ATION 08/01/2024 [facility] Care Teams (unrecognized sec tion and content) Team Status: Active Member Role Status Dates Arnie Linda , Primary Care Provider Active Team Status: Active Member Role Status Dates Arnie Linda DO Primary Care Provide r, Attending Provider Active Start: February 01, 2024 Team Status: Active Member Role Status Dates rAnie Linda DO Primary Care Provider Active Start: March 01, 2024 Kalia Sánchez MD Referring Provider Active Sta rt: March 01, 2024 Chivo Keller II, DO Attending Provider Active Start: March 01, 2024 Team Status: Inactive Member Role Status Dates Arnie Linda DO Primary Care Provider Active Start: March 01, 2024 End: March 01, 2024 Chivo Keller II, DO Attending Provider Active Start: March 01, 2024 End: March 01, 2024 Team Status: Inactive Member Role Status Dates Arnie Linda DO Primary Care Provide r, Attending Provider Active Start: April 22, 2024 End: April 22, 2024 Team Status: Inactive Member Role Status Dates Arnie Linda DO Primary Care Provide r, Attending Provider Active Start: December 18, 2023 End: December 18, 2023 Team Status: Active Member Role Status Dates Arnie Linda DO Primary Care Provide r, Attending Provider Active Start: December 19, 2023 Team Status: Active Member Role Status Michelle Linda DO Primary Care Provider Active Klaia Sánchez MD Referring Provider Active Chivo Keller II, DO Attending Provider Active Team Status: Inactive Member Role Status Dates Arnie Linda DO Primary Care Provider Active CHARLENE Calvin Attending Provider Jesus staples Team Status: Inactive Member Role Status Dates Arnie Linda , Primary Care Provider Active Ramesh Rascon MD [...] BE BASED ON THE PRIMARY CLINICAL RECORDS. [email or web address] provides no warranty or guarantee of the accuracy or completeness of information in this document.
[2024-08-01 08:31] LABS: Basophils Percent Auto 0.3 % (0.2-2.0); Eosinophils Absolute Auto 0.4 10^3/uL (0.0-0.7); Hematocrit 38.3 % (42.0-54.0); Hemoglobin 12.6 g/dL (14.0-18.0); Immature Granulocytes Abs Auto 0.04 10^3/uL (0.00-0.03); Immature Granulocytes Pct Auto 0.4 % (0.0-0.5); Lymphocytes Percent Auto 21.8 % (20.5-60.0); Mean Corpuscular HGB Conc 32.9 g/dL (29.9-35.2); Mean Corpuscular Hemoglobin 31.3 pg (25.9-34.0); Mean Platelet Volume 9.2 fL (9.5-13.5); Monocytes Absolute Auto 0.8 10^3/uL (0.3-0.8); Monocytes Percent Auto 8.6 % (1.7-12.0); Neutrophils Absolute Auto 5.8 10^3/uL (1.4-6.5); Neutrophils Percent Auto 64.9 % (43.0-75.0); Platelet Count 229 10^3/uL (150-450); Red Blood Count 4.03 10^6/uL (4.70-6.10); Red Cell Distribution Width 13.7 % (11.0-15.0); White Blood Count 8.9 10^3/uL (4.0-11.0)
[2024-08-01 08:47] LABS: Bilirubin Urine NEGATIVE (NEGATIVE); Blood Urine NEGATIVE (NEGATIVE); Clarity Urine CLEAR (CLEAR); Color Urine LT. YELLOW (YELLOW); Glucose Urine UA NEGATIVE (NEGATIVE); Ketones Urine NEGATIVE (NEGATIVE); Leukocyte Esterase Urine TRACE (NEGATIVE); Nitrite Urine NEGATIVE (NEGATIVE); Protein Urine NEGATIVE (NEG/TRACE); Specific Gravity Urine <=1.005 (1.005-1.025); Urobilinogen Urine 0.2 EU/dL (0.2-1.0)
[2024-08-01 09:49] LABS: Creatinine Urine Random 34.78 mg/dL (20.00-300.00); Protein Creatinine Ratio Urine 0.36; Total Protein Urine Random 12.6 mg/dL (<=11.9)
[2024-08-01 09:54] LABS: Anion Gap 11.7; Calcium 9.2 mg/dL (8.5-10.1); Carbon Dioxide 32.1 mmol/L (21.0-32.0); Chloride 101 mmol/L (98-107); Estimated GFR (African America 28 (>=60 mL/min/1.73m^2); Estimated GFR (Non-African Ame 23 (>=60 mL/min/1.73m^2); Glucose 128 mg/dL (74-106); Magnesium 2.4 mg/dL (1.8-2.4); Phosphorus 4.1 mg/dL (2.6-4.7); Potassium 3.8 mmol/L (3.5-5.1); Sodium 141 mmol/L (136-145)
[2024-08-02 11:10] LABS: PTH, Intact 57 pg/mL (15-65)
== END 2024-08-01 08:13 | disposition home or self-care (01) ==
LOC: LAB 08:12
PROVIDERS: PCP Internal Medicine; Visit Provider Internal Medicine Nephrology
DX: N18.4 Chronic kidney disease, stage 4 (severe) (principal)
CPT/HCPCS: 36415; 80048; 81003; 82570; 83735; 83970; 84100; 84156; 85025

== ENCOUNTER 2024-09-13 08:24 | Outpatient (OUT) | payer MEDICARE, SELFPAY ==
--- OUTSIDE RECORDS SUMMARY | 2024-09-13 08:28 | XMS_ITS | CCD ---
Author Organization [facility] Care Team Providers Care English Language Learner Tutor Name Role Phone GILMER SALAZAR Attending Unavailable GILMER SALAZAR Admitting Unavailable ARNIE LINDA Referring Unavailable ARNIE LINDA Primary Care Unavailable DO Arnie Linda Primary Care Provider CHARLENE Kelly Attending Provider MD Kalia Sánchez Referring Provider [phone] Arianna APARICIO, DO Chivo Howell Attending Provider [phone] MD Kalia Sánchez Referring Provider [phone] DO Chivo Keller II Attending Provider [phone] MD Ramesh Rascon Attending Provider DO Arnie Linda Primary Care Provider MD Ramesh Rascon Attending Provider MD Kalia Sánchez Referring Provider [phone] DO Chivo Keller II Attending Provider [phone]( [phone] Arnie Linda Unavailable LAURAFERMIN Admitting Unavailable LAURA, [...] DR SORENSON Primary Care Unavailable BALL, DR OSRENSON Admitting Unavailable BALL, DR SORENSON Attending Unavailable [...] Unavailable KUNAL BUTLER, AVERY Pedroza Admitting Unavailab Georgia BUTLER, AVERY Pedroza Attending Unavailab le MISC, DR [...] shaina SYED MD, AVERY Pedroza Consulting Unavailab Stuart, DR SORENSON Primary Care Unavailable MOUKARBEL, DR SEYMOUR Admitting Unavailable MOUKARBEL, DR SEYMOUR Attending Unavailable BALL, DR SORENSON Primary Care Unavailable DO Arnie Linda Primary Care Provider [phone] MD Kalia Sánchez Referring Provider Adamowicz II, DO Chivo Howell Attending Provider [phone] DO Arnie Linda Primary Care Provider MD Kalia Sánchez Referring Provider Adamowicz II, DO Chivo Howell Attending Provider [phone] Arnie Linda DO Primary Care Provider Arnie Linda MD Primary Care Provider RANDALL TELLO Attending Unavailable MARILIN CLAY Attending Unavailable Dittthomas, Ramesh Howell Attending Unavailable Ramesh Rascon Admitting Unavailable Arnie Linda Primary [facility] Unavailable Adamowicz II, Chivo Howell Attending Unavaila ble Adamowicz II, Chivo Howell Admitting Unavaila ble Kalia Sánchez Referring Unavailable Maddi, Arnie Primary Care Unavailable MIKAYLA, TRANG Referring Unavailable BASHIR, GREG Referring Unavailable MIKAYLA, TRANG Referring Unavailable MIKAYLA, TRANG Referring Unavailable MIKAYLA, TRANG Referring Unavailable MIKAYLA, TRANG Referring Unavailable MOUKARBEL, DAWN Attending Unavailable MIKAYLA, TRANG Referring Unavailable MOUKARBEL, DAWN Attending Unavailable MIKAYLA, TRANG Attending Unavailable MIKAYLA, TRANG Referring Unavailable BASHIR, GREG Referring Unavailable LORIENRRIQUE SORTO Attending Unavailable MIKAYLA, TRANG Referring Unavailable MIKAYLA, TRANG Referring Unavailable MIKAYLA, TRANG Referring Unavailable MIKAYLA, TRANG Referring Unavailable BASHIR, GREG Referring Unavailable Allergies Allergy Classification Reported Allergen(s) Allergy Type Date of Onset Reaction(s) Facility (3 sources) black walnut pollen extract; Translations: [RYYDPNI-LND-JJI REDUCTASE INHIBITORS] Drug Allergy 05-16-20 18 [facility] (11 sources) traMADol; Translations: [TRAMADOL] Drug Allergy 03-30-20 22 Itching [facility] (9 sources) Gptoegb-ORO-OtO Reductase Inhibitor; Translations: [Tcpvbch-JBI-GfJ Reductase Inhibitor] Allergy to substance 06-03-20 Mus[place] Pain [facility] (13 sources) Albuterol Drug Allergy Unknown IP Street Other (17 sources) ezetimibe Drug Allergy Unknown IP Street Other (13 sources) HMG-CoA reductase inhibitor Drug allergy Unknown IP Street Other (19 sources) Niacin Drug Allergy Unknown IP Street Other (19 sources) Simvastatin Drug Allergy 12-18-19 24 Unknown, Unknown Reaction [facility] (8 sources) Statins Depletion *DIETARY PRODUCTS/DIETARY MANAGE Propensity to adverse reactions Unknown IP Street Other (4 sources) Allergies Reconciled Propensity to adverse reactions Unknown IP Street Other (8 sources) Albuterol *ANTIASTHMATIC AND BRONCHODILATOR AGENTS Propensity to adverse reactions Comment:dedrick lala more with this IP Street Other (4 sources) patient allergy list reviewed by nurse or physicia Propensity to adverse reactions 04-04-20 Comment:Done IP Street Other (4 sources) Niacin Drug Allergy 12-18-19 24 Unknown, Unknown Reaction [facility] (1 source) HMG-CoA reductase inhibitor Propensity to adverse reactions to drug 11-03-19 [facility] (1 source) Simvastatin Drug Allergy 08-22-20 [facility] (1 source) traMADol Drug Allergy 08-22-20 [facility] Medications Current Medications Medication Drug Class(es) Dates Sig (Normalized) Sig (Original) allopurinol 100 mg oral tablet (20 sources) Xanthine Oxidase Inhibitor Start: 06-09-2021 take 100 mg by mouth once daily Allopurinol Active 100 MG PO Daily June 09, 2021 12:00am amLODIPine 10 mg oral tablet (20 sources) Dihydropyridine Calcium Channel Gu[place]ako Start: 07-21-2022 take 10 mg by mouth [...] 2021 1:35pm apixaban 2.5 mg oral tablet (16 sources) Factor Xa Inhibitor Start: 03-03-2023 take 1 tablet by mouth twice daily Apixaban (Eliquis) 2.5 mg Tablet Active 2.5 MG PO Twice daily March 03, 2023 12:00am Start: 02-16-2023 take 1 tablet by dakotah th in the morning, then take 1 tablet by mouth at bedtime apixaban (ELIQUIS) 5 mg tablet Take 1 tablet (5 mg total) by mouth in the morning and 1 tablet (5 mg total) before bedtime. 02/16/2023 Active Aspir-81 (7 sources) Aspir-81 Active benazepril hydrochloride 40 mg oral tablet (19 sources) Angiotensin Converting Enzyme Inhibitor Start: 12-15-19 take 40 mg by mouth once daily Benazepril Active 40 MG PO Daily December 15, 2023 1:00am cholecalciferol 0.125 mg oral tablet (13 sources) Vitamin D Start: 12-15-19 take 5000 [IU] by mouth once daily Cholecalciferol (Vitamin D3) Active 5000 UNIT PO Daily December 15, 2023 1:00am Start: 06-09-2021 End: 12-15-2023 take 125 ug by mouth once daily Cholecalciferol (Vitamin D3) Discontinued 125 MCG PO Daily June 09, 2021 12:00am December 15, 2023 2:47pm take 1 tablet by dakotah th in the morning cholecalciferol, vitamin D3, 5,000 units tablet Take 1 tablet (5,000 Units total) by mouth in the morning. Active Contour Next Test - (17 sources) Contour Next Wendi t - as directed In Vitro Active ezetimibe 10 mg oral tablet (17 sources) Dietary Cholesterol Absorption Inhibitor Start: 03-01-2024 take 10 mg by mouth once daily Ezetimibe Active 10 MG PO Daily March 01, 2024 12:00am Start: 03-03-2023 End: 12-15-2023 take 1 tablet by mouth once daily Ezetimibe (Zetia) 10 mg Tablet Discontinued 10 MG PO Daily March 03, 2023 12:00am December 15, 2023 2:47pm Gvfbfrhwgzg-Tafuhaxqi-Hgmkje (Trelegy Ellipta) 200-62.5-25 MCG/ACT aerosol powder (2 sources) Fluticasone-Umec lidin-Vilant (Trelegy Ellipta) 200-62.5-25 MCG/ACT aerosol powder Inhale Active Sbxqtxwwekc-Cueihtpbv-Fnjgod er (2 sources) Sta rt: 4 Erbsypxpkzr-Gzskuiehq-Ivxcig er (Trelegy Ellipta) 200-62.5-25 mcg blister with device Active 1 INH INHALATION Daily 90 February 15, 2024 12:00am furosemide 80 mg oral tablet (3 sources) Loop Diuretic Sta rt: 3 take 80 mg by mouth once daily Furosemide Active 80 MG PO Daily December 18, 2023 1:00am hydrALAZINE hydrochloride 10 0 mg oral tablet (20 sources) Arteriolar Vasodilator Sta rt: 1 take 100 mg by mouth three times [...] 09, 2021 12:00am August 31, 2021 9:56am losartan potassium 25 mg oral tablet (1 source) Angiotensin 2 Receptor Guanako Start: 08-08-2024 take 1 tablet by mouth in the morning losartan (COZAAR) 25 mg tablet Take 1 tablet (25 mg total) by mouth in the morning. 90 tablet 3 08/08/2024 Active Start: 08-08-2024 take 1 tablet by dakotah th in the morning losartan (COZAAR) 25 mg tablet Take 1 tablet (25 mg total) by mouth in the morning. 90 tablet 3 08/08/2024 Active methIMAzole 10 mg oral tablet (20 sources) [...] mouth once daily for 30 DAYS Start: 02-08-2024 take 0.5 tablet by m outh every other day methIMAzole (TAPAZOLE) 10 mg tablet Take 0.5 tablets (5 mg total) by mouth every other day. 02/08/2024 Active Start: 02-01-2024 End: 04-17-2024 take 5 mg [...] 25, 2022 12:00am December 15, 2023 2:46pm take 1 tablet by dakotah th in the morning, then take 1 tablet by mouth in the evening, then take 1 tablet by mouth at bedtime methIMAzole (Tapazole) 10 MG tablet Take 10 mg by mouth in the morning and 10 mg in the evening and 10 mg before bedtime. Active 24 hr metoprolol succinate 100 mg extended release oral tablet (20 sources) beta-Adrenergic Guanako Start: 12-15-2023 take 100 mg by mouth [...] 2021 12:00am August 02, 2021 1:37pm take 2 tablets by [facility] every twenty-four hours in the morning metoprolol succinate XL (TOPROL-XL) 50 mg 24 hr tablet Take 2 tablets (100 mg total) by mouth in the morning. Active niacin 500 mg oral tablet (20 [...] MEQ PO Daily June 09, 2021 12:00am potassium chlori de CR (Klor-Con M10) 10 MEQ ER tablet Take 10 mEq by mouth Daily Do not crush or chew. Active TRELEGY ELLIPTA 200-62.5-25 mcg blister with device (1 source) Start: 02-22-2023 take 1 puff(s) by inhalation in the morning TRELEGY ELLIPTA 200-62.5-25 mcg blister with device Inhale 1 puff in the morning. 02/22/2023 Active Vitamin D3 125 MCG (5000 UT) [...] 500 MG PO Q6H 120 30 June 09, 2021 12:00am July 14, 2021 8:42am acetaminophen 325 mg / HYDROcodone bitartrate 5 mg oral tablet (8 sources) Opioid Agonist Start: 08-22-2021 End: 08-31-2021 take 1 tablet by mouth every six hours Hydrocodone-Acetami nophen Discontinued 1 TAB PO Q6H 28 August 22, 2021 August 31, 2021 9:56am [...] Anoro Ellipta Discontinued 62.5 mcg inhalation Daily June 09, 2021 12:00am August 02, [...] Inhalation Twice a day Active Pulmicort Not-Ta /PRN Pulmicort Not-Ta bumetanide 1 mg oral tablet (20 sources) [...] 09, 2021 12:00am August 02, 2021 1:40pm take 1 tablet by dakotah th once daily bumetanide (Bumex) 2 MG tablet Take 2 mg by mouth Daily Active Bumex 1 MG 2 Ora lly Once a day Active carvedilol 25 mg oral tablet (17 sources) alpha-Adrenergic Guanako, beta-Adrenergic Guanako Carvedilol 25 MG Orally Not-Taking/PRN cefTRIAXone 2000 mg injection (8 sources) Cephalosporin Antibacterial Start: 2020 End: 2020 take 2 g intravenously every twenty-four hours Ceftriaxone Discontinued 2 GM IV Q24H June 09, 2021 12:00am July 14, 2021 [...] 21, 2022 8:06am take 1 tablet by [facility] once daily Ferrous Sulfate 325 (65 Fe) [...] August 02, 2021 1:40pm polyethylene glycol 3350 94891 mg powder for oral solution (8 sources) Osmotic Laxative Start: 06-09-2021 End: 07-14-2021 Polyethylene Glycol 3350 (Miralax) 17 gram Powder In Packet Discontinued 17 GM PO Daily June 09, 2021 12:00am July 14, 2021 8:40am propranolol hydrochloride 10 mg oral tablet (8 sources) beta-Adrenergic Guanako Start: 02-25-2022 End: 07-21-2022 take 1 tablet [...] Translations: [Unspecified systolic (congestive) heart failure] Onset: 11-03-2021 08-31-2021 Chronic Coronary atherosclerosis and other heart disease (11 sources) Coronary arteriosclerosis; Translations: [Atherosclerotic heart disease of [place] coronary artery without angina pectoris] Onset: 03-09-2022 08-31-2021 Chronic Deficiency and other anemia (8 sources) Iron deficiency anemia; Translations: [Iron deficiency anemia, unspecified] 08-31-2021 Episodic Diabetes mellitus with complications (20 sources) Hyperglycemia due to type 2 diabetes mellitus; Translations: [Type 2 diabetes mellitus with hyperglycemia] Onset: 10-16-1957 Chronic Diabetes mellitus without complication (11 sources) Type 2 diabetes mellitus; Translations: [Type 2 diabetes mellitus without complications] Onset: 11-03-2021 08-31-2021 Chronic Disorders of lipid metabolism (20 sources) Hypercholesterolemia; Translations: [Pure hypercholesterolemia, unspecified] Onset: [birth year]16-1957 08-31-2021 Chronic Essential hypertension (20 sources) Hypertensive disorder; Translations: [Essential (primary) hypertension] Onset: 11-03-2021 08-31-2021 Chronic Fluid and electrolyte disorders (7 [...] vertebra, lumbar region] Resolved: 10-06-2022 08-31-2021 Chronic Miscellaneous mental health disorders (2 sources) Primary insomnia; Translations: [Primary insomnia] Onset: 07-08-2024 07-08-2024 Chronic Neoplasms of unspecified nature or uncertain [...] source) Venous insufficiency (chronic) (peripheral) Episodic Other ear and sense organ disorders (1 source) Impacted cerumen of bilateral ears; Translations: [Impacted cerumen, bilateral] 08-21-2024 Episodic Other gastrointestinal disorders (8 sources) Constipation; [...] syndrome; Translations: [Obstructive sleep apnea (adult) (pediatric)] Onset: 07-08-2024 12-15-2023 Chronic Residual codes; unclassified (5 sources) Obstructive sleep apnea (adult) (pediatric); Translations: [Obstructive sleep apnea (adult)(pediatric)] Chronic Residual codes; unclassified (2 sources) Hypersomnia; Translations: [Hypersomnia, unspecified] Onset: 07-08-2024 07-08-2024 Chronic Residual codes; unclassified (6 sources) Patient [...] Other correction (current) drug therapy; Translations: [OTH PRE BILLING SPECIALIST CURRENT DRUG THERAPY] Onset: 03-09-2022 Episodic Other [...] Value Interpretation Reference Range Facility Office Visiton 09-10-2024 Follow-up visit [id number] Nas Ren 1940 M Date Provider Department Center 09/10/2024 [facility] Family History Problem Relation Age of Onset Diabetes Mother Heart disease Father Glaucoma Brother Diabetes Maternal Grandmother Clotting disorder Other Family Status - Relation Status Age at Mother Father Brother Maternal Grandmother Other Level of Service:95342 [place] OFFICE/OUTPATIENT ESTABLISHED LOW MDM 20 MIN Normal [facility] Glucose Poct Glucometerson 1 10-22-2023 Commemt1 Glu2: Cleaned Meter Normal [facility] Comment on above: Result Comment: PERF ORMED BY: [facility] [address] [place] [address] PATHOLOGIST CONVENTION PLANNER TRU UMANZOR M.D. Performed By: #### G LULS #### Point of Care testing , Glucose [Mass/Vol] 112 mg/dL Normal [facility] Comment on above: Result Comment: [place] Glucose Reference Range is dependent on time and content of last meal. Glucose of more than 200 mg/dL in a nonstressed, ambulatory subject supports the diagnosis of Diabetes Mellitus. Performed By: #### G LULS #### Point of Care testing , Vijay 08-22-2024 L Specimen: [id number] Received: 08/22/24 Status: ДМИТРИЙ Barry Num: [id number] Spec Type: Surgical Subm Dr: Ramesh Rascon MD Tissues: A Colon Biopsy (TRANSVERSEPOLYPS) B Colon Biopsy (DESCENDING POLYPS) C Colon Biopsy (SIGMOID POLYPS) Procedures: HE/Julieta Harding/Srinivas L4/3 Age/ Patient Sex Location Account Attending Physician Nas Ren /[facility] [id number] Ramesh Rascon MD SPEC NUM: [id number] RECD: 08/22/24 STATUS: ДМИТРИЙ BARRY NUM: [id number] LLOYD: 08/22/24- SUBM DR: Ramesh Rascon MD ENTERED: 08/22/24 [facility] DR: SPEC TYPE: Surgical DEPT: S ENTERED BY: [id number] [facility] BY: [id number] ORDERED: HE/6, Gross/Micro L4/3 ORDERED: HE/6, Gross/Micro L4/3 Pathological Diagnosis A. Transverse colon polyps: Fragments of tubular adenomas. B. Descending colon polyps: Tubular adenomas (4) Hyperplastic polyp (1). C. Sigmoid colon polyps: Hyperplastic polyps. Clinical Information History colon polyps Gross Description A. Received in formalin labeled transverse polyps are 3 staley-parr, focally erythematous, friable, 0.2, 0.3 and 0.3 cm polypoid fragments. The specimen is entirely submitted in a single cassette. (1, ns, [id number] A) JG B received in formalin labeled descending polyps are 5 staley-parr, focally erythematous, friable, 0.2 to 0.5 cm polypoid fragments. The specimen is entirely submitted in a single cassette. (1, ns, [id number] B) JG C. Received in formalin labeled sigmoid polyps are 4 staley-parr, focally erythematous, Specimen: [id number] Received: 08/22/24 Status: ДМИТРИЙ Adlerjeramy Num: [id number] Spec Type: Surgical Subm Dr: Ramesh Rascon MD Tissues: A Colon Biopsy (TRANSVERSEPOLYPS) B Colon Biopsy (DESCENDING POLYPS) C Colon Biopsy (SIGMOID POLYPS) Procedures: HE/6, Gross/Micro L4/3 Patient: Nas Ren [id number] (Continued) Specimen: [id number] Received: 08/22/24 (Continued) Gross Description (Continued) Signed (signatur e on file) Logan Ruiz MD 08/23/24 0926 Specimen: [id number] Received: 08/22/24 Status: ДМИТРИЙ Vickey Num: [id number] Spec Type: Surgical Subm Dr: Ramesh Rascon MD Tissues: A Colon Biopsy (TRANSVERSEPOLYPS) B Colon Biopsy (DESCENDING POLYPS) C Colon Biopsy (SIGMOID POLYPS) Procedures: HE/6, Julieta/Micro L4/3 Patient: Nas Ren [id number] (Continued) Specimen: [id number] Received: 08/22/24 (Continued) Gross Description (Continued) friable, 0.2 to 0.4 cm polypoid fragments. The specimen is entirely submitted in a single cassette. (1, ns, [id number] C) CPT Codes 88 305 x 3 Specimen: [id number] Received: 08/22/24 Status: ДМИТРИЙ Barry Num: [id number] Spec Type: Surgical Subm Dr: Ramesh Rascon MD Tissues: A Colon Biopsy (TRANSVERSEPOLYPS) B Colon Biopsy (DESCENDING POLYPS) C Colon Biopsy (SIGMOID POLYPS) Procedures: HE/6, Gross/Micro L4/3 Patient: RenNas [id number] (Continued) Signed (signatur e on file) Logan Ruiz MD 08/23/24925 Normal [facility] 36on 08-12-2024 36 Okay to hold Eliquis 2 days prior to colonoscopy. Thanks Normal [facility] Office Visiton 07-24-2024 Follow-up visit [id number] Nas Ren 1940 [facility] Provider Department Center 07/24/2024 ENRRIQUE TAVAREZ DARWIN Shaikh Family History Problem Relation Age of Onset Diabetes Mother Heart disease Father Glaucoma Brother Diabetes Maternal Grandmother Clotting disorder Other Family Status - Relation Status Age at Mother Father Brother Maternal Grandmother Other Level of Service:86267 [place] OFFICE/OUTPATIENT ESTABLISHED MOD MDM 30 MIN Reason for Visit and Comments: Atrial Fibrillation [80] Coronary Artery Disease [187] Normal [facility] Office Visiton 03-29-2024 Follow-up visit [id number] Nas Ren 1940 [facility] Provider Department Center 03/29/2024 DAWN YOUSIF DARWIN [facility] Family History Problem Relation Age of Onset Diabetes Mother Heart disease Father Glaucoma Brother Diabetes Maternal Grandmother Clotting disorder Other Family Status - Relation Status Age at Mother Father Brother Maternal Grandmother Other Level of Service:20998 [place] OFFICE/OUTPATIENT ESTABLISHED LOW MDM 20 MIN Normal [facility] Alanine aminotransferase [En zymatic activity/volume] in Serum or PlasmaOrdered By: Chivo Keller on 02-22-2024 ALT [Catalytic activity/Vol] 15 U/L Normal 7-52 [facility] Comment on above: Performed By: #### V [id number], TONY, CMP, FE and TIBC, CBC #### [facility] [address] [place] [address] [place] #### SPE, KAPPA, LEXI SERUM #### [facility] , Albumin [Mass/volume] in Ser um or PlasmaOrdered By: Chivo Keller on 02-22-2024 Albumin [Mass/Vol] 3.9 g/dL Normal 2.9-4.4 [facility] Comment on above: Performed By: #### V [id number], TONY, CMP, FE and TIBC, CBC ####[facility] [place] [address] [place]#### SPE, KAPPA, LEXI SERUM ####[facility] , Albumin [Mass/volume] in Ser um or Plasma by Bromocresol green (BCG) dye binding methoOrdered By: Chivo Keller on 02-22-2024 Albumin BCG dye [Mass/Vol] 4.4 g/dL 3.5-5.7 [facility] Alkaline phosphatase [Enzyma tic activity/volume] in Serum or PlasmaOrdered By: Chiov Keller on 02-22-2024 ALP [Catalytic activity/Vol] 100 U/L Normal 34-104 [facility] Comment on above: Performed By: #### V [id number], TONY, CMP, FE and TIBC, CBC #### [place] [address] [place] #### SPE, KAPPA, LEXI SERUM #### [facility] , Aspartate aminotransferase [ Enzymatic activity/volume] in Serum or PlasmaOrdered By: Chivo Keller on 02-22-2024 AST [Catalytic activity/Vol] 18 U/L Normal 13-39 [facility] Comment on above: Performed By: #### V [id number], TONY, CMP, FE and TIBC, CBC #### [place] [address] [place] #### SPE, KAPPA, LEXI SERUM #### [facility] , Automated basophil %Ordered By: Chivo Keller on 02-22-2024 Basophils/100 WBC (Bld) 0.5 % Normal . [facility] Comment on above: Performed By: #### V [id number], TONY, CMP, FE and TIBC, CBC #### [place] [address] [place] #### SPE, KAPPA, LEXI SERUM #### [facility] , Automated basophil countOrde red By: Chivo Keller on 02-22-2024 Basophils (Bld) [#/Vol] 0.0 10*3/uL Normal 0.0-0.2 [facility] Comment on above: Result Comment: PERF ORMED BY: [place] [address] PATHOLOGIST [employer]ION PLANNER TRU UMANZOR M.D. Performed By: #### V [id number], TONY, CMP, FE and TIBC, CBC #### [address] #### SPE, KAPPA, LEXI SERUM #### [facility] , Automated blood monocyte cou ntOrdered By: Chivo Keller on 02-22-2024 Monocytes (Bld) [#/Vol] 0.8 10*3/uL Normal 0.0-0.8 [facility] Comment on above: Performed By: #### V [id number], TONY, CMP, FE and TIBC, CBC #### [place] [address] [place] #### SPE, KAPPA, LEXI SERUM #### [facility] , Automated eosinophil %Ordere d By: Chivo Keller on 02-22-2024 Eosinophils/100 WBC (Bld) 3.8 % Normal . [facility] Comment on above: Performed By: #### V [id number], TONY, CMP, FE and TIBC, CBC #### [place] [address] [place] #### SPE, KAPPA, LEXI SERUM #### [facility] , Automated eosinophil countOr dered By: Chivo Keller on 02-22-2024 Eosinophils (Bld) [#/Vol] 0.3 10*3/uL Normal 0.0-0.45 [facility] Comment on above: Performed By: #### V [id number], TONY, CMP, FE and TIBC, CBC #### [place] [address] [place] #### SPE, KAPPA, LEXI SERUM #### [facility] , Automated monocyte %Ordered By: Chivo Keller on 02-22-2024 Monocytes/100 WBC (Bld) 10.0 % Normal . [facility] Comment on above: Performed By: #### V [id number], TONY, CMP, FE and TIBC, CBC #### [place] [address] [place] #### SPE, KAPPA, LEXI SERUM #### [facility] , Automated neutrophil %Ordere d By: Chivo Keller on 02-22-2024 Neutrophils/100 WBC (Bld) 66.6 % Normal . [facility] Comment on above: Performed By: #### V [id number], TONY, CMP, FE and TIBC, CBC #### [place] [address] [place] #### SPE, KAPPA, LEXI SERUM #### [facility] , Bilirubin.total [Mass/volume ] in Serum or PlasmaOrdered By: Chivo Keller on 02-22-2024 Bilirubin [Mass/Vol] 0.7 mg/dL Normal 0.3-1.0 [facility] Comment on above: Performed By: #### V [id number], TONY, CMP, FE and TIBC, CBC #### [place] [address] [place] #### SPE, KAPPA, LEXI SERUM #### [facility] , CT abdomen pelvis wo conon 0 02-22-2024 CT abdomen pelvis wo con [facility] [place] [address] [place], [place] [id number] CT Scan Report Signed Patient: Nas Ren MR#: [id number] [birth year] : 1940 Acct:[id number] Age/Sex: 83 / M ADM Date: 02/22/24 Loc: Room: Type: [facility] RCR Attending Dr: Chivo Keller II DO Copies to: Chivo Keller II, DO Ordering Provider: Chivo Keller II, DO Date of Service: 02/22/24 CT/CT abdomen pelvis wo con: surveilance ([id number]) CT/CT chest wo con: surveilance CT chest [...] Michaela Bernard M.D.02/22/2024 2:03 PM Dictation Location: [place] [address] Transcribed By: [facility] 02/22/24 1403 Dictated By: Michaela Bernard II, MD 02/22/24 1351 Signed By: 02/22/24 1403 Normal [facility] Calcium [Mass/volume] in Ser um or PlasmaOrdered By: Chivo Keller on 02-22-2024 Calcium [Mass/Vol] 9.4 mg/dL Normal 8.6-10.3 [facility] Comment on above: Performed By: #### V [id number], TONY, CMP, FE and TIBC, CBC #### [facility] [address] [place] [address] #### SPE, KAPPA, LEXI SERUM #### [facility] , Carbon dioxide, total [Moles /volume] in Serum or PlasmaOrdered By: Chivo Keller on 02-22-2024 CO2 [Moles/Vol] 33.2 mmol/L High 21.0-31.0 [facility] Comment on above: Performed By: #### V [id number], TONY, CMP, FE and TIBC, CBC #### [place] [address] [place] #### SPE, KAPPA, LEXI SERUM #### [facility] , Chloride [Moles/volume] in S alayna or PlasmaOrdered By: Chivo Keller on 02-22-2024 Chloride [Moles/Vol] 100 mmol/L Normal 98-107 [facility] Comment on above: Performed By: #### V [id number], OTNY, CMP, FE and TIBC, CBC #### [place] [address] [place] #### SPE, KAPPA, LEXI SERUM #### [facility] , Complete Blood Count Auto Di ffon 02-22-2024 Mean Corpuscular HGB Conc 33.9 g/dL Normal 32.5-35.6 [facility] Comment on above: Performed By: #### V [id number], TONY, CMP, FE and TIBC, CBC #### [place] [address] [place] #### SPE, KAPPA, LEXI SERUM #### [facility] , NRBC% 0.0 /100{WBC} Normal 0-0.[address] [facility] Comment on above: Performed By: #### V [id number], TONY, CMP, FE and TIBC, CBC #### [place] [address] [place] #### SPE, KAPPA, ELXI SERUM #### [facility] , Comprehensive Metabolic Pane vijay 02-22-2024 Albumin [Mass/Vol] 4.4 g/dL Normal 3.5-5.7 [facility] Comment on above: Performed By: #### V [id number], TONY, CMP, FE and TIBC, CBC #### [address] #### SPE, KAPPA, LEXI SERUM #### [facility] , Creatinine Clr Calc Pharmacy 29.06 Normal [facility] Comment on above: Performed By: #### V [id number], TONY, CMP, FE and TIBC, CBC #### [address] #### SPE, KAPPA, LEXI SERUM #### [facility] , GFR/1.73 sq M.predicted MDRD (S/P/Bld) [Vol rate/Area] 26.711 mL/min/{1.73_m2} Normal [facility] Comment on above: Performed By: #### V [id number], TONY, CMP, FE and TIBC, CBC #### [address] #### SPE, KAPPA, LEXI SERUM #### [facility] , Creatinine [Mass/volume] in Serum or PlasmaOrdered By: Chivo Keller on 02-22-2024 Creatinine [Mass/Vol] 2.38 mg/dL High 0.70-1.30 [facility] Comment on above: Performed By: #### V [id number], TONY, CMP, FE and TIBC, CBC #### [place] [address] [place] #### SPE, KAPPA, LEXI SERUM #### [facility] , Erythrocyte distribution wid th [Ratio] by Automated countOrdered By: Chivo Keller on 02-22-2024 Erythrocyte distribution width (RBC) [Ratio] 14.6 % Normal 12.0-14.8 [facility] Comment on above: Performed By: #### V [id number], TONY, CMP, FE and TIBC, CBC #### [facility] [address] [place] [address] [place] #### SPE, KAPPA, LEXI SERUM #### [facility] , Erythrocytes [#/volume] in B lood by Automated countOrdered By: Chivo Keller on 02-22-2024 RBC (Bld) [#/Vol] 4.09 10*6/uL Normal 3.90-5.60 [facility] Comment on above: Performed By: #### V [id number], TONY, CMP, FE and TIBC, CBC #### [facility] [address] [place] [address] [place] #### SPE, KAPPA, LEXI SERUM #### [facility] , Ferritin [Mass/volume] in Se rum or PlasmaOrdered By: Chivo Keller on 02-22-2024 Ferritin [Mass/Vol] 236.8 ng/mL Normal 23.9-336.2 [facility] Comment on above: Performed By: #### V [id number], TONY, CMP, FE and TIBC, CBC #### [facility] [address] [place] [address] [place] #### SPE, KAPPA, LEXI SERUM #### [facility] , Folate [Mass/volume] in Seru m or PlasmaOrdered By: Chivo Keller on 02-22-2024 Folate [Mass/Vol] 36.0 ng/mL >5.9 [facility] Comment on above: Folate reference ran ge: >5.9 ng/mlThe WHO technical consultation on folate and vitamin [id number] has determined that folate concentrations lessthan 4 ng/ml are considered deficient. Free K+L LT Chains, Qn, Son 02-22-2024 Free Longfellow Light Chains, S 56.1 mg/L High 3.3-19.4 [facility] Comment on above: Performed By: #### V [id number], TONY, CMP, FE and TIBC, CBC ####[facility] [address] [place] [address] [place]#### SPE, KAPPA, LEXI SERUM ####[facility] , Free Lambda Light Chains, S 37.2 mg/L High 5.7-26.3 [facility] Comment on above: Performed By: #### V [id number], TONY, CMP, FE and TIBC, CBC ####[facility]#### SPE, KAPPA, LEXI SERUM ####[facility] , Longfellow/Lambda Ratio, S 1.51 Normal 0.26-1.65 [facility] Comment on above: Result Comment: Perf ormed at: - [facility] [address] [id number] Fuse Assembler: Nathan Munoz PhD, Phone: [phone] PERFORMED BY: [place] [address] PATHOLOGIST [employer] TRU UMANZOR M.D. Performed By: #### V [id number], TONY, CMP, FE and TIBC, CBC ####[address]#### SPE, KAPPA, LEXI SERUM ####[facility] , Glucose [Mass/volume] in Ser um or PlasmaOrdered By: Chivo Keller on 02-22-2024 Glucose [Mass/Vol] 129 mg/dL High 70-100 [facility] Comment on above: ADA recommended refe rence rangeRandom Glucose Reference Range is dependent on time and content of last meal. Glucose of more than 200 mg/dL in a nonstressed, ambulatory subject supports the diagnosis of Diabetes Mellitus. Result Comment: [place] om Glucose Reference Range is dependent on time and content of last meal. Glucose of more than 200 mg/dL in a nonstressed, ambulatory subject supports the diagnosis of Diabetes Mellitus. ADA recommended reference range Performed By: #### V [id number], TONY, CMP, FE and TIBC, CBC #### [facility] [address] [place] [address] [place] #### SPE, KAPPA, LEXI SERUM #### [facility] , Hematocrit [Volume Fraction] of Blood by Automated countOrdered By: Chivo Keller on 02-22-2024 Hematocrit (Bld) [Volume fraction] 38.1 % Low 38.8-50.0 [facility] Comment on above: Performed By: #### V [id number], TONY, CMP, FE and TIBC, CBC #### [place] [address] [place] #### SPE, KAPPA, LEXI SERUM #### [facility] , Hemoglobin [Mass/volume] in BloodOrdered By: Chivo Keller on 02-22-2024 Hemoglobin (Bld) [Mass/Vol] 12.9 g/dL Low 13.0-17.0 [facility] Comment on above: Performed By: #### V [id number], TONY, CMP, FE and TIBC, CBC #### [facility] [address] [place] [address] [place] #### SPE, KAPPA, LEXI SERUM #### [facility] , IgA [Mass/volume] in Serum o r PlasmaOrdered By: Chivo Keller on 02-22-2024 IgA [Mass/Vol] 179 mg/dL 61-437 [facility] IgG [Mass/volume] in Serum o r PlasmaOrdered By: Chivo Keller on 02-22-2024 IgG [Mass/Vol] 987 mg/dL 603-1613 [facility] IgM [Mass/volume] in Serum o r PlasmaOrdered By: Chivo Keller on 02-22-2024 IgM [Mass/Vol] 143 mg/dL 15-143 [facility] Comment on above: Performed at: [address] [id number] Director: Nathan Munoz PhD, Phone: [phone] Immunofixation,Serumon 02-21 Immunofixation, Serum Normal . [facility] Comment on above: Result Comment: No m onoclonality detected. Performed By: #### V [id number], TONY, CMP, FE and TIBC, CBC #### [place] [address] [place] #### SPE, KAPPA, LEXI SERUM #### [facility] , Immunoglobulin A, Serum 179 mg/dL Normal 61-437 [facility] Comment on above: Performed By: #### V [id number], TONY, CMP, FE and TIBC, CBC #### [place] [address] [place] #### SPE, KAPPA, LEXI SERUM #### [facility] , Immunoglobulin G 987 mg/dL Normal 603-1613 [facility] Comment on above: Performed By: #### V [id number], TONY, CMP, FE and TIBC, CBC #### [place] [address] [place] #### SPE, KAPPA, LEXI SERUM #### [facility] , Immunoglobulin M, Serum 143 mg/dL Normal 15-143 [facility] Comment on above: Result Comment: Perf ormed at: - [facility] [place] [id number] Fuse Assembler: Nathan Munoz PhD, Phone: [phone] Performed By: #### V [id number], TONY, CMP, FE and TIBC, CBC #### [place] [address] [place] #### SPE, KAPPA, LEXI SERUM #### [facility] , Immunoglobulin light chains. kappa.free [Mass/volume] in SerumOrdered By: Chivo Keller on 02-22-2024 Immunoglobulin light chains.kappa.free (S) [Mass/Vol] 56.1 mg/L High 3.3-19.4 [facility] Immunoglobulin light chains. kappa.free/Immunoglobulin light chains.lambda.free [MassOrdered By: Chivo Keller on 02-22-2024 Immunoglobulin light chains.kappa.free/Immuno globulin light chains.lambda.free (S) [Mass ratio] 1.51 0.26-1.65 [facility] Comment on above: Performed at: [address] [id number] Director: Nathan Munoz PhD, Phone: [phone] Immunoglobulin light chains. lambda.free [Mass/volume] in Serum or PlasmaOrdered By: Chivo Keller on 02-22-2024 Immunoglobulin light chains.lambda.free [Mass/Vol] 37.2 mg/L High 5.7-26.3 [facility] Iron [Mass/volume] in Serum or PlasmaOrdered By: Chivo Keller on 02-22-2024 Iron [Mass/Vol] 85 ug/dL Normal 50-212 [facility] Comment on above: Performed By: #### V [id number], TONY, CMP, FE and TIBC, CBC #### [facility] [address] [place] [address] [place] #### SPE, KAPPA, LEXI SERUM #### [facility] , Iron and TIBC Profileon % Iron Saturation 30.2 % Normal 20-50 [facility] Comment on above: Performed By: #### V [id number], TONY, CMP, FE and TIBC, CBC #### [facility] [address] [place] [address] [place] #### SPE, KAPPA, LEXI SERUM #### [facility] , Total Iron Binding Capacity 281 ug/dL Normal 255-450 [facility] Comment on above: Performed By: #### V [id number], TONY, CMP, FE and TIBC, CBC #### [facility] [address] [place] [address] [place] #### SPE, KAPPA, LEXI SERUM #### [facility] , Iron binding capacity [Mass/ volume] in Serum or PlasmaOrdered By: Chivo Keller on 02-22-2024 Iron binding capacity [Mass/Vol] 281 ug/dL 255-450 [facility] Iron saturation [Mass Fracti on] in Serum or PlasmaOrdered By: Chivo Keller on 02-22-2024 Iron saturation [Mass fraction] 30.2 % 20-50 [facility] Leukocytes [#/volume] correc bonnie for nucleated erythrocytes in Blood by Automated counOrdered By: Chivo Keller on 02-22-2024 WBC corrected for nucl RBC Auto (Bld) [#/Vol] 7.5 10*3/uL 4.1-10.5 [facility] Leukocytes [#/volume] in Blo od by Automated countOrdered By: Chivo Keller on 02-22-2024 WBC (Bld) [#/Vol] 7.5 10*3/uL Normal 4.1-10.5 [facility] Comment on above: Performed By: #### V [id number], TONY, CMP, FE and TIBC, CBC #### [place] [address] [place] #### SPE, KAPPA, LEXI SERUM #### [facility] , Lymphocytes [#/volume] in Bl ood by Automated countOrdered By: Chivo Keller on 02-22-2024 Lymphocytes (Bld) [#/Vol] 1.4 10*3/uL Normal 1.00-4.8 [facility] Comment on above: Performed By: #### V [id number], TONY, CMP, FE and TIBC, CBC #### [place] [address] [place] #### SPE, KAPPA, LEXI SERUM #### [facility] , Lymphocytes/100 leukocytes i n Blood by Automated countOrdered By: Chivo Keller on 02-22-2024 Lymphocytes/100 WBC (Bld) 19.1 % Normal . [facility] Comment on above: Performed By: #### V [id number], TONY, CMP, FE and TIBC, CBC #### [facility] [address] [place] [address] [place] #### SPE, KAPPA, LEXI SERUM #### [facility] , MCH [Entitic mass] by Automa bonnie countOrdered By: Chivo Keller on 02-22-2024 MCH (RBC) [Entitic mass] 31.6 pg Normal 27.5-35.2 [facility] Comment on above: Performed By: #### V [id number], TONY, CMP, FE and TIBC, CBC #### [facility] [address] [place] [address] [place] #### SPE, KAPPA, LEXI SERUM #### [facility] , MCHC Auto (RBC) [Mass/Vol]Or dered By: Chivo Keller on 02-22-2024 MCHC (RBC) [Mass/Vol] 33.9 g/dL 32.5-35.6 [facility] MCV [Entitic volume] by Auto mated countOrdered By: Chivo Keller on 02-22-2024 MCV (RBC) [Entitic vol] 93.2 fL Normal 83.5-101 F [facility] Comment on above: Performed By: #### V [id number], TONY, CMP, FE and TIBC, CBC #### [facility] [address] #### SPE, KAPPA, LEXI SERUM #### [facility] , Neutrophils [#/volume] in Bl ood by Automated countOrdered By: Chivo Keller on 02-22-2024 Neutrophils (Bld) [#/Vol] 5.0 10*3/uL Normal 1.8-7.7 [facility] Comment on above: Performed By: #### V [id number], TONY, CMP, FE and TIBC, CBC #### [facility] [address] [place] [address] [place] #### SPE, KAPPA, LEXI SERUM #### [facility] , No Panel InformationOrdered By: Chivo Keller on 02-22-2024 Protein Electrophoresis M-Tobi Not observed g/dL Not Observed [facility] Protein Electrophoresis Note See comment . [facility] Comment on above: Protein electrophore sis scan will follow via computer,mail, or district wildlife manager delivery.Performed at: - [facility] [id number] Director: Nathan Munoz PhD, Phone: [phone] Serum Immunofixation See comment . [facility] Comment on above: No monoclonality det ected. Estimated GFR (CKD-EPI) 26.711 mL/Min [facility] Creatinine Clearance (Chem 29.06 [facility] Nucleated erythrocytes [Pres ence] in Blood by Automated countOrdered By: Chivo Keller on 02-22-2024 Nucleated RBC Auto Ql (Bld) 0.0 /100{WBC} 0-0.5 [facility] Platelet mean volume [Entiti c volume] in Blood by Automated countOrdered By: Chivo Keller on 02-22-2024 Platelet mean volume (Bld) [Entitic vol] 7.6 fL Normal 6.6-10.1 [facility] Comment on above: Performed By: #### V [id number], TONY, CMP, FE and TIBC, CBC #### [facility] [address] [place] [address] [place] #### SPE, KAPPA, LEXI SERUM #### [facility] , Platelets [#/volume] in Bloo d by Automated countOrdered By: Chivo Keller on 02-22-2024 Platelets (Bld) [#/Vol] 196 10*3/uL Normal 150-450 [facility] Comment on above: Performed By: #### V [id number], TONY, CMP, FE and TIBC, CBC #### [facility] [address] [place] [address] [place] #### SPE, KAPPA, LEXI SERUM #### [facility] , Potassium [Moles/volume] in Serum or PlasmaOrdered By: Chivo Keller on 02-22-2024 Potassium [Moles/Vol] 3.8 mmol/L Normal 3.5-5.1 [facility] Comment on above: Performed By: #### V [id number], TONY, CMP, FE and TIBC, CBC #### [facility] [address] #### SPE, KAPPA, LEXI SERUM #### [facility] , Protein Electrophoresis, Ser umon 02-22-2024 Mxnci-2-Ucvpklax 0.2 g/dL Normal 0.0-0.4 [facility] Comment on above: Performed By: #### V [id number], TONY, CMP, FE and TIBC, CBC ####[address]#### SPE, KAPPA, LEXI SERUM ####[facility] , Oaweg-0-Ydiduyye 0.8 g/dL Normal 0.4-1.0 [facility] Comment on above: Performed By: #### V [id number], TONY, CMP, FE and TIBC, CBC ####[address]#### SPE, KAPPA, LEXI SERUM ####[facility] , Beta Globulin 0.9 g/dL Normal 0.7-1.[address] [facility] Comment on above: Performed By: #### V [id number], TONY, CMP, FE and TIBC, CBC ####[address]#### SPE, KAPPA, LEXI SERUM ####[facility] , Gamma Globulin 1.0 g/dL Normal 0.4-1.8 [facility] Comment on above: Performed By: #### V [id number], TONY, CMP, FE and TIBC, CBC ####[place] [address] [place]#### SPE, KAPPA, LEXI SERUM ####[facility] , M-Tobi Not Observed Normal Not Observed [facility] Comment on above: Performed By: #### V [id number], TONY, CMP, FE and TIBC, CBC ####[facility]#### SPE, KAPPA, LEXI SERUM ####[facility] , SPE-Note Normal . [facility] Comment on above: Result Comment: Prot ein electrophoresis scan will follow via computer, mail, or district wildlife manager delivery. Performed at: [address] [id number] Fuse Assembler: Nathan Munoz PhD, Phone: [phone] Performed By: #### V [id number], TONY, CMP, FE and TIBC, CBC ####[address]#### SPE, KAPPA, LEXI SERUM ####[facility] , Protein [Mass/volume] in Ser um or PlasmaOrdered By: Chivo Keller on 02-22-2024 Protein [Mass/Vol] 6.8 g/dL Normal 6.0-8.5 [facility] Comment on above: Performed By: #### V [id number], TONY, CMP, FE and TIBC, CBC ####[facility]#### SPE, KAPPA, LEXI SERUM ####[facility] , Protein [Mass/Vol] 7.4 g/dL Normal 6.4-8.9 [facility] Comment on above: Performed By: #### V [id number], TONY, CMP, FE and TIBC, CBC #### [facility] [address] #### SPE, KAPPA, LEXI SERUM #### [facility] , Serum globulin measurement ( mass/volume)Ordered By: Chivo Keller on 02-22-2024 Globulin (S) [Mass/Vol] 2.9 g/dL Normal 2.2-3.9 [facility] Comment on above: Performed By: #### V [id number], TONY, CMP, FE and TIBC, CBC ####[facility] [place] [address] [place]#### SPE, KAPPA, LEXI SERUM ####[facility] , Serum globulin measurement b y calculation (mass/volume)Ordered By: Chivo Keller on 02-22-2024 Globulin (S) [Mass/Vol] 3.0 g/dL Normal [facility] Comment on above: Performed By: #### V [id number], TONY, CMP, FE and TIBC, CBC #### [place] [address] [place] #### SPE, KAPPA, LEXI SERUM #### [facility] , Serum or plasma albumin/glob ulin mass ratioOrdered By: Chivo Keller on 02-22-2024 Albumin/Globulin [Mass ratio] 1.3 {ratio} Normal 0.7-1.7 [facility] Comment on above: Performed By: #### V [id number], TONY, CMP, FE and TIBC, CBC ####[place] [address] [place] [address] [place]#### SPE, KAPPA, LEXI SERUM ####[facility] , Albumin/Globulin [Mass ratio] 1.5 {ratio} Normal [facility] Comment on above: Performed By: #### V [id number], TONY, CMP, FE and TIBC, CBC #### [facility] [address] [place] [address] [place] #### SPE, KAPPA, LEXI SERUM #### [facility] , Serum or plasma alpha 1 glob ulin measurement by electrophoresis (mass/volume)Ordered By: Chivo Keller on 02-22-2024 Alpha 1 globulin Elph [Mass/Vol] 0.2 g/dL 0.0-0.4 [facility] Serum or plasma alpha 2 glob ulin measurement by electrophoresis (mass/volume)Ordered By: Chivo Keller on 02-22-2024 Alpha 2 globulin Elph [Mass/Vol] 0.8 g/dL 0.4-1.0 [facility] Serum or plasma anion gap de terminationOrdered By: Chivo Keller on 02-22-2024 Anion gap [Moles/Vol] 10.6 mmol/L Normal 6.0-15.0 [facility] Comment on above: Performed By: #### V [id number], TONY, CMP, FE and TIBC, CBC #### [place] [address] [place] #### SPE, KAPPA, LEXI SERUM #### [facility] , Serum or plasma beta globuli n measurement by electrophoresis (mass/volume)Ordered By: Chivo Keller on 02-22-2024 Beta globulin Elph [Mass/Vol] 0.9 g/dL 0.7-1.3 [facility] Serum or plasma gamma globul in measurement by electrophoresis (mass/volume)Ordered By: Chivo Keller on 02-22-2024 Gamma globulin Elph [Mass/Vol] 1.0 g/dL 0.4-1.8 [facility] Sodium [Moles/volume] in Ser um or PlasmaOrdered By: Chivo Keller on 02-22-2024 Sodium [Moles/Vol] 140 mmol/L Normal 136-145 [facility] Comment on above: Performed By: #### V [id number], TONY, CMP, FE and TIBC, CBC #### [place] [address] [place] #### SPE, KAPPA, LEXI SERUM #### [facility] , Transferrin [Mass/volume] in Serum or PlasmaOrdered By: Chivo Keller on 02-22-2024 Transferrin [Mass/Vol] 201 mg/dL Low 203-362 [facility] Comment on above: Performed By: #### V [id number], TONY, CMP, FE and TIBC, CBC #### [place] [address] [place] #### SPE, KAPPA, LEXI SERUM #### [facility] , Urea nitrogen [Mass/volume] in Serum or PlasmaOrdered By: Chivo Keller on 02-22-2024 Urea nitrogen [Mass/Vol] 59 mg/dL High 7-25 [facility] Comment on above: Performed By: #### V [id number], TONY, CMP, FE and TIBC, CBC #### [facility] [address] [place] [address] [place] #### SPE, KAPPA, LEXI SERUM #### [facility] , Vit. B12/Folate Profileon Folate 36.0 ng/mL Normal >5.9 [facility] Comment on above: Result Comment: Echo te reference range: >5.9 ng/ml The WHO technical consultation on folate and vitamin b12 deficiencies has determined that folate concentrations less than 4 ng/ml are considered deficient. PERFORMED BY: [place] [address] PATHOLOGIST [employer] PL[employer]NER TRU UMANZOR M.D. Performed By: #### V [id number], TONY, CMP, FE and TIBC, CBC #### [place] [address] [place] #### SPE, KAPPA, LEXI SERUM #### [facility] , Vitamin B12 ser/plasOrdered By: Chivo Keller on 02-22-2024 Cobalamin (Vitamin B12) [Mass/Vol] 649 pg/mL Normal 180-914 [facility] Comment on above: Performed By: #### V [id number], TONY, CMP, FE and TIBC, CBC #### [place] [address] [place] #### SPE, KAPPA, LEXI SERUM #### [facility] , Automated urine specific gra vity by refractometryon 02-01-2024 Specific gravity Refractometry automated (U) [Rel density] 1.010 1.005-1.025 [facility] Bilirubin Auto test strip (U ) [Mass/Vol]on 02-01-2024 Bilirubin (U) [Mass/Vol] Negative NEGATIVE [facility] Color Auto (U)on 02-01-2024 Color (U) LT. YELLOW YELLOW [facility] Erythrocyte distribution wid th Auto (RBC) [Ratio]on 02-01-2024 Erythrocyte distribution width (RBC) [Ratio] 13.5 % 11.0-15.0 [facility] Estimated glomerular filtrat ion rate (GFR) non- Americanon 02-01-2024 GFR/1.73 sq M.predicted among non-blacks MDRD (S/P/Bld) [Vol rate/Area] 23 mL/min/{1.73_m2} Low >=60 [facility] Glucose [Mass/volume] in Uri ne by Test stripon 02-01-2024 Glucose Test strip (U) [Mass/Vol] Negative NEGATIVE [facility] Hematocrit Auto (Bld) [Volum e fraction]on 02-01-2024 Hematocrit (Bld) [Volume fraction] 37.0 % Low 42.0-54.0 [facility] Hemoglobin [Mass/volume] in Bloodon 02-01-2024 Hemoglobin (Bld) [Mass/Vol] 11.9 g/dL Low 14.0-18.0 [facility] Ketones Auto test strip (U) [Mass/Vol]on 02-01-2024 Ketones (U) [Mass/Vol] Negative NEGATIVE [facility] Laboratory - Chemistry and C hemistry - challengeon 02-01-2024 Calcium [Mass/Vol] 9.1 mg/dL 8.5-10.1 [facility] Chloride [Moles/Vol] 101 mmol/L 98-107 [facility] CO2 [Moles/Vol] 31.5 mmol/L 21.0-32.0 [facility] Creatinine [Mass/Vol] 2.66 mg/dL High 0.70-1.30 [facility] Free T4 [Mass/Vol] 1.03 ng/dL 0.76-1.46 [facility] GFR/1.73 sq M.predicted MDRD (S/P/Bld) [Vol rate/Area] 28 mL/min/{1.73_m2} Low >=60 [facility] Glucose [Mass/Vol] 128 mg/dL High 74-106 [facility] Magnesium [Mass/Vol] 2.4 mg/dL 1.8-2.4 [facility] Potassium [Moles/Vol] 3.8 mmol/L 3.5-5.1 [facility] Sodium [Moles/Vol] 141 mmol/L 136-145 [facility] TSH Qn 8.924 m[IU]/L High 0.358-3.740 [facility] Urea nitrogen [Mass/Vol] 55.0 mg/dL High 7.0-18.0 [facility] Urea nitrogen/Creatinine [Mass ratio] 20.7 mg/mg [facility] Laboratory - Urinalysison Protein (U) [Mass/Vol] 25.1 mg/dL High <=11.9 [facility] Leukocytes [#/volume] correc bonnie for nucleated erythrocytes in Blood by Automated counon 02-01-2024 WBC corrected for nucl RBC Auto (Bld) [#/Vol] 8.0 10 3/uL 4.0-11.0 [facility] MCH Auto (RBC) [Entitic mass ]on 02-01-2024 MCH (RBC) [Entitic mass] 30.9 pg 25.9-34.0 [facility] MCHC Auto (RBC) [Mass/Vol]on 02-01-2024 MCHC (RBC) [Mass/Vol] 32.2 g/dL 29.9-35.2 [facility] MCV Auto (RBC) [Entitic vol] on 02-01-2024 MCV (RBC) [Entitic vol] 96.1 fL High 80.0-94.0 [facility] No Panel Informationon 01-31 25-Hydroxy Vitamin D Total 94.2 ng/mL [facility] Comment on above: <20 ng/mL Vit D defi cient20-<30 ng/mL Vit D kvodbcrypfuo02-001 ng/mL Vit D sufficient>100 ng/mL Potential Toxicity Parathyroid Hormone (Intact) 52 pg/mL 15-65 [facility] Comment on above: Performed at: [address] [id number] Director: Nathan Munoz PhD, Phone: [phone] Phosphorus Level 4.1 mg/dL 2.6-4.7 [facility] Prostate Specific Antigen Screen 0.91 ng/mL <=4.00 [facility] Total Triiodothyronine 73 ng/dL 71-180 [facility] Comment on above: Performed at: - [employer] [address] [id number] Director: Nathan Munoz PhD, Phone: [phone] Urine Random Creatinine 77.24 mg/dL 20.00-300.0 0 [facility] Platelet mean volume Auto (B ld) [Entitic vol]on 02-01-2024 Platelet mean volume (Bld) [Entitic vol] 9.5 fL 9.5-13.5 [facility] Platelets Auto (Bld) [#/Vol] on 02-01-2024 Platelets (Bld) [#/Vol] 199 10 3/uL 150-450 [facility] Protein Auto test strip (U) [Mass/Vol]on 02-01-2024 Protein (U) [Mass/Vol] TRACE mg/dL NEG/TRACE F [facility] RBC Auto (Bld) [#/Vol]on RBC (Bld) [#/Vol] 3.85 10 6/uL Low 4.70-6.10 [facility] Serum or plasma anion gap de terminationon 02-01-2024 Anion gap [Moles/Vol] 12.3 mmol/L [facility] Specific gravity Auto test s trip (U) [Rel density]on 02-01-2024 Specific gravity (U) [Rel density] CLEAR CLEAR [facility] Urine hemoglobin detection b y automated test stripon 02-01-2024 Hemoglobin Auto test strip Ql (U) Negative NEGATIVE [facility] Urine nitrite detection by a utomated test stripon 02-01-2024 Nitrite Auto test strip Ql (U) SMALL Abnormal NEGATIVE [facility] Nitrite Auto test strip Ql (U) Negative NEGATIVE [facility] Urine protein/creatinine rat ioon 02-01-2024 Protein/Creatinine (U) [Ratio] 0.32 [facility] Urobilinogen Auto test strip (U) [Mass/Vol]on 02-01-2024 Urobilinogen Qn (U) 0.2 {Jagruti'U}/dL 0.2-1.0 [facility] pH Auto test strip (U)on pH (U) 6.0 [pH] 5.0-9.0 [facility] Cholesterol in LDL Calc [Mas s/Vol]on 12-19-2023 Cholesterol in LDL [Mass/Vol] 81.8 mg/dL [facility] Comment on above: <100 mg/dl [id number] 0-129 mg/dl NEAR OR ABOVE [id number] mg/dl BORDERLINE [id number] mg/dl HIGH>190 mg/dl VERY HIGH Cholesterol in VLDL Calc [Ma ss/Vol]on 12-19-2023 Cholesterol in VLDL [Mass/Vol] 23.2 mg/dL [facility] Glucose mean value [Mass/vol ume] in Blood Estimated from glycated hemoglobinon 12-19-2023 Average glucose Estimated from glycated hemoglobin (Bld) [Mass/Vol] 137 mg/dL [facility] Laboratory - Chemistry and C hemistry - challengeon 12-19-2023 Cholesterol [Mass/Vol] 148 mg/dL <=200 Fi [facility] Cholesterol in HDL [Mass/Vol] 43 mg/dL 40-60 [facility] Comment on above: > or =60 mg/dl - LOW CARDIOVASCULAR RISK<40 mg/dl - HIGH CARDIOVASCULAR RISK Free T4 [Mass/Vol] 1.04 ng/dL 0.76-1.46 [facility] Triglyceride [Mass/Vol] 116 mg/dL <=150 F [facility] TSH Qn 11.812 m[IU]/L 0.358-3.740 [facility] Laboratory - Hematology and Cell countson 12-19-2023 HbA1c (Bld) [Mass fraction] 6.4 % 4.5-6.2 [facility] Comment on above: ADA RECOMMENDED LIMI T 4.0 - 6.0ADA THERAPEUTIC TARGET < 7.0ACTION SUGGESTED> 7.0 Serum or plasma total choles terol/high density lipoprotein (HDL) cholesterol mass ernesto 12-19-2023 Cholesterol.total/Choles terol in HDL [Mass ratio] 3.4 {ratio} [facility] Comment on above: 3.3 - 4.4 LOW RISK4. 4 - 7.1 AVERAGE RISK7.1 - 11.0 MODERATE RISK>11.0 HIGH RISK Office Visiton 09-22-2023 Follow-up visit [id number] RenNas guzman Jefry 1940 M Date Provider Department Center 09/22/2023 DAWN YOUSIF C[facility] Family History Problem Relation Age of Onset Diabetes Mother Heart disease Father Glaucoma Brother Diabetes Maternal Grandmother Clotting disorder Other Family Status - Relation Status Age at Mother Father Brother Maternal Grandmother Other Level of Service:87292 [place] OFFICE/OUTPATIENT ESTABLISHED LOW MDM 20-29 MIN Normal [facility] Alanine aminotransferase [En zymatic activity/volume] in Serum or PlasmaOrdered By: Leigha Omar on 08-30-2023 ALT [Catalytic activity/Vol] 20 U/L Normal 7-52 [facility] Comment on above: Performed By: #### C EA, CBC, FE and TIBC, CMP, TONY ####[facility] [address] [place] [id number] [place] Albumin [Mass/volume] in Ser um or Plasma by Bromocresol green (BCG) dye binding methoOrdered By: Leigha Omar on 08-30-2023 Albumin BCG dye [Mass/Vol] 4.4 g/dL 3.5-5.7 [facility] Alkaline phosphatase [Enzyma tic activity/volume] in Serum or PlasmaOrdered By: Leigha Nelson on 08-30-2023 ALP [Catalytic activity/Vol] 114 U/L High 34-104 [facility] Comment on above: Performed By: #### C EA, CBC, FE and TIBC, CMP, TONY ####[facility] [address] [place] [id number] [place] Aspartate aminotransferase [ Enzymatic activity/volume] in Serum or PlasmaOrdered By: Leigha Nelson on 08-30-2023 AST [Catalytic activity/Vol] 23 U/L Normal 13-39 [facility] Comment on above: Performed By: #### C EA, CBC, FE and TIBC, CMP, TONY ####[place] [address] [address] Automated basophil %Ordered By: Leigha Nelson on 08-30-2023 Basophils/100 WBC (Bld) 0.5 % Normal . F [facility] Comment on above: Performed By: #### C EA, CBC, FE and TIBC, CMP, TONY ####[address] Automated basophil countOrde red By: Leigha Nelson on 08-30-2023 Basophils (Bld) [#/Vol] 0.0 10*3/uL Normal 0.0-0.2 [facility] Comment on above: Result Comment: PERF ORMED BY: [facility] [address] [place] [address] PATHOLOGIST [employer] TRU UMANZOR M.D. Performed By: #### C EA, CBC, FE and TIBC, CMP, TONY ####[address] Automated blood monocyte cou ntOrdered By: Leigha Nelson on 08-30-2023 Monocytes (Bld) [#/Vol] 0.5 10*3/uL Normal 0.0-0.8 [facility] Comment on above: Performed By: #### C EA, CBC, FE and TIBC, CMP, TONY ####[address] Automated eosinophil %Ordere d By: Leigha Nelson on 08-30-2023 Eosinophils/100 WBC (Bld) 3.8 % Normal . [facility] Comment on above: Performed By: #### C EA, CBC, FE and TIBC, CMP, TONY ####[address] Automated eosinophil countOr dered By: Leigha Nelson on 08-30-2023 Eosinophils (Bld) [#/Vol] 0.3 10*3/uL Normal 0.0-0.45 [facility] Comment on above: Performed By: #### C EA, CBC, FE and TIBC, CMP, TONY ####[facility] [id number] [facility] Automated monocyte %Ordered By: Leigha Omar on 08-30-2023 Monocytes/100 WBC (Bld) 7.9 % Normal . F [facility] Comment on above: Performed By: #### C EA, CBC, FE and TIBC, CMP, TONY ####[facility] [place] [id number] [facility] Automated neutrophil %Ordere d By: Leigha Omar on 08-30-2023 Neutrophils/100 WBC (Bld) 65.9 % Normal . [facility] Comment on above: Performed By: #### C EA, CBC, FE and TIBC, CMP, TONY ####[place] [address] [address] Bilirubin.total [Mass/volume ] in Serum or PlasmaOrdered By: Leigha Omar on 08-30-2023 Bilirubin [Mass/Vol] 0.8 mg/dL Normal 0.3-1.0 [facility] Comment on above: Performed By: #### C EA, CBC, FE and TIBC, CMP, TONY ####[address] abdomen pelvis wo conon 1 10-30-2022 CT abdomen pelvis wo con [place] [address] CT Scan Report Signed Patient: Nas Ren MR#: [id number] 24 : 1940 Acct:[id number] Age/Sex: 83 / M ADM Date: 08/30/23 Loc: Room: Type: [facility] Attending Dr: Chivo Keller II DO Copies to: EDWARD Luke II, DO Ordering Provider: Leigha Nelson APRN Date of Service: 08/30/23 CT/CT chest wo con: surveillance ([id number]) CT/CT abdomen pelvis wo con: surveillance CT [...] Scott Jr., D.O.08/30/2023 1:10 PM Dictation Location: [place] [address] Transcribed By: CALI 08/30/23 1310 Dictated By: Sotero Scott Jr, DO 08/30/23 1304 Signed By: 08/30/23 1310 Normal [facility] Calcium [Mass/volume] in Ser um or PlasmaOrdered By: Leigha Nelson on 08-30-2023 Calcium [Mass/Vol] 9.7 mg/dL Normal 8.6-10.3 [facility] Comment on above: Performed By: #### C EA, CBC, FE and TIBC, CMP, TONY ####[address] Carbon dioxide, total [Moles /volume] in Serum or PlasmaOrdered By: Leigha Talamantesjose luisjimena on 08-30-2023 CO2 [Moles/Vol] 35.5 mmol/L High 21.0-31.0 [facility] Comment on above: Performed By: #### C EA, CBC, FE and TIBC, CMP, TONY ####[address] Chloride [Moles/volume] in S alayna or PlasmaOrdered By: Leigha Omar on 08-30-2023 Chloride [Moles/Vol] 102 mmol/L Normal 98-107 [facility] Comment on above: Performed By: #### C EA, CBC, FE and TIBC, CMP, TONY ####[address] Complete Blood Count Auto Di ffon 08-30-2023 Mean Corpuscular HGB Conc 33.3 g/dL Normal 32.5-35.6 [facility] Comment on above: Performed By: #### C EA, CBC, FE and TIBC, CMP, TONY ####[address] NRBC% 0.1 /100{WBC} Normal 0-0.[address] [facility] Comment on above: Performed By: #### C EA, CBC, FE and TIBC, CMP, TONY ####[place] [id number] [facility] Comprehensive Metabolic Pane vijay 08-30-2023 Albumin [Mass/Vol] 4.4 g/dL Normal 3.5-5.7 [facility] Comment on above: Performed By: #### C EA, CBC, FE and TIBC, CMP, TONY ####[place] [phone] [place] Creatinine Clr Calc Pharmacy 30.81 Normal [facility] Comment on above: Performed By: #### C EA, CBC, FE and TIBC, CMP, TONY ####[address] GFR/1.73 sq M.predicted MDRD (S/P/Bld) [Vol rate/Area] 27.976 mL/min/{1.73_m2} Normal [facility] Comment on above: Performed By: #### C EA, CBC, FE and TIBC, CMP, TONY ####[address] Creatinine [Mass/volume] in Serum or PlasmaOrdered By: Leigha Omar on 08-30-2023 Creatinine [Mass/Vol] 2.29 mg/dL High 0.70-1.30 [facility] Comment on above: Performed By: #### C EA, CBC, FE and TIBC, CMP, TONY ####[address] Erythrocyte distribution wid th [Ratio] by Automated countOrdered By: Leigha Omar on 08-30-2023 Erythrocyte distribution width (RBC) [Ratio] 14.8 % Normal 12.0-14.8 [facility] Comment on above: Performed By: #### C EA, CBC, FE and TIBC, CMP, TONY ####[address] Erythrocytes [#/volume] in B lood by Automated countOrdered By: Leigha Omar on 08-30-2023 RBC (Bld) [#/Vol] 3.96 10*6/uL Normal 3.90-5.60 [facility] Comment on above: Performed By: #### C EA, CBC, FE and TIBC, CMP, TONY ####[address] Ferritin [Mass/volume] in Se rum or PlasmaOrdered By: Leigha Nelson on 08-30-2023 Ferritin [Mass/Vol] 239.3 ng/mL Normal 23.9-336.2 [facility] Comment on above: Result Comment: PERF ORMED BY: [facility] [address] [id number] PATHOLOGIST [employer] TRU UMANZOR M.D. Performed By: #### C EA, CBC, FE and TIBC, CMP, TONY ####[place] [id number] [place] [address] [place] Glucose [Mass/volume] in Ser um or PlasmaOrdered By: Leigha Omar on 08-30-2023 Glucose [Mass/Vol] 111 mg/dL High 70-100 [facility] Comment on above: ADA recommended refe rence rangeRandom Glucose Reference Range is dependent on time and content of last meal. Glucose of more than 200 mg/dL in a nonstressed, ambulatory subject supports the diagnosis of Diabetes Mellitus. Result Comment: [place] om Glucose Reference Range is dependent on time and content of last meal. Glucose of more than 200 mg/dL in a nonstressed, ambulatory subject supports the diagnosis of Diabetes Mellitus. ADA recommended reference range Performed By: #### C EA, CBC, FE and TIBC, CMP, TONY ####[address] [address] [facility] Hematocrit [Volume Fraction] of Blood by Automated countOrdered By: Leigha Omar on 08-30-2023 Hematocrit (Bld) [Volume fraction] 36.8 % Low 38.8-50.0 [facility] Comment on above: Performed By: #### C EA, CBC, FE and TIBC, CMP, TONY ####[address] [address] [facility] Hemoglobin [Mass/volume] in BloodOrdered By: Leigha Omar on 08-30-2023 Hemoglobin (Bld) [Mass/Vol] 12.3 g/dL Low 13.0-17.0 [facility] Comment on above: Performed By: #### C EA, CBC, FE and TIBC, CMP, TONY ####[address] [address] [place] Iron [Mass/volume] in Serum or PlasmaOrdered By: Leigha Nelson on 08-30-2023 Iron [Mass/Vol] 84 ug/dL Normal 50-212 [facility] Comment on above: Performed By: #### C EA, CBC, FE and TIBC, CMP, TONY ####[facility] Iron and TIBC Profileon 08-16-2022 % Iron Saturation 29.0 % Normal 20-50 [facility] Comment on above: Performed By: #### C EA, CBC, FE and TIBC, CMP, TONY ####[address] Total Iron Binding Capacity 290 ug/dL Normal 255-450 [facility] Comment on above: Performed By: #### C EA, CBC, FE and TIBC, CMP, TONY ####[address] Iron binding capacity [Mass/ volume] in Serum or PlasmaOrdered By: Leigha Nelson on 08-30-2023 Iron binding capacity [Mass/Vol] 290 ug/dL 255-450 [facility] Iron saturation [Mass Fracti on] in Serum or PlasmaOrdered By: Leigha Nelson on 08-30-2023 Iron saturation [Mass fraction] 29.0 % 20-50 [facility] Leukocytes [#/volume] correc bonnie for nucleated erythrocytes in Blood by Automated counOrdered By: Leigha Nelson on 08-30-2023 WBC corrected for nucl RBC Auto (Bld) [#/Vol] 7.0 10*3/uL 4.1-10.5 [facility] Leukocytes [#/volume] in Blo od by Automated countOrdered By: Leigha Nelson on 08-30-2023 WBC (Bld) [#/Vol] 7.0 10*3/uL Normal 4.1-10.5 [facility] Comment on above: Performed By: #### C EA, CBC, FE and TIBC, CMP, TONY ####[place] [address] [place] [id number] [facility] Lymphocytes [#/volume] in Bl ood by Automated countOrdered By: Leigha Nelson on 08-30-2023 Lymphocytes (Bld) [#/Vol] 1.5 10*3/uL Normal 1.00-4.8 [facility] Comment on above: Performed By: #### C EA, CBC, FE and TIBC, CMP, TONY ####[place] [id number] [address] Lymphocytes/100 leukocytes i n Blood by Automated countOrdered By: Leigha Nelson on 08-30-2023 Lymphocytes/100 WBC (Bld) 21.9 % Normal . [facility] Comment on above: Performed By: #### C EA, CBC, FE and TIBC, CMP, TONY ####[address] MCH [Entitic mass] by Automa bonnie countOrdered By: Leigha Nelson on 08-30-2023 MCH (RBC) [Entitic mass] 30.9 pg Normal 27.5-35.2 [facility] Comment on above: Performed By: #### C EA, CBC, FE and TIBC, CMP, TONY ####[address] MCHC Auto (RBC) [Mass/Vol]Or dered By: Leigha Nelson on 08-30-2023 MCHC (RBC) [Mass/Vol] 33.3 g/dL 32.5-35.6 [facility] MCV [Entitic volume] by Auto mated countOrdered By: Leigha Nelson on 08-30-2023 MCV (RBC) [Entitic vol] 92.8 fL Normal 83.5-101 F [facility] Comment on above: Performed By: #### C EA, CBC, FE and TIBC, CMP, TONY ####[address] Neutrophils [#/volume] in Bl ood by Automated countOrdered By: Leigha Nelson on 08-30-2023 Neutrophils (Bld) [#/Vol] 4.6 10*3/uL Normal 1.8-7.7 [facility] Comment on above: Performed By: #### C EA, CBC, FE and TIBC, CMP, TONY ####[address] No Panel InformationOrdered By: Leigha Nelson on 08-30-2023 Estimated GFR (CKD-EPI) 27.976 mL/Min [facility] Creatinine Clearance (Chem 30.81 [facility] Nucleated erythrocytes [Pres ence] in Blood by Automated countOrdered By: Leigha Nelson on 08-30-2023 Nucleated RBC Auto Ql (Bld) 0.1 /100{WBC} 0-0.5 [facility] Platelet mean volume [Entiti c volume] in Blood by Automated countOrdered By: Leigha Nelson on 08-30-2023 Platelet mean volume (Bld) [Entitic vol] 7.6 fL Normal 6.6-10.1 [facility] Comment on above: Performed By: #### C EA, CBC, FE and TIBC, CMP, TONY ####[address] Platelets [#/volume] in Bloo d by Automated countOrdered By: Leigha Nelson on 08-30-2023 Platelets (Bld) [#/Vol] 206 10*3/uL Normal 150-450 [facility] Comment on above: Performed By: #### C EA, CBC, FE and TIBC, CMP, TONY ####[address] Potassium [Moles/volume] in Serum or PlasmaOrdered By: Leigha Nelson on 08-30-2023 Potassium [Moles/Vol] 4.5 mmol/L Normal 3.5-5.1 [facility] Comment on above: Performed By: #### C EA, CBC, FE and TIBC, CMP, TONY ####[address] Protein [Mass/volume] in Ser um or PlasmaOrdered By: Leigha Nelson on 08-30-2023 Protein [Mass/Vol] 6.9 g/dL Normal 6.4-8.9 [facility] Comment on above: Performed By: #### C EA, CBC, FE and TIBC, CMP, TONY ####[place] [address] [address] Serum globulin measurement b y calculation (mass/volume)Ordered By: Leigha Nelson on 08-30-2023 Globulin (S) [Mass/Vol] 2.5 g/dL Normal F [facility] Comment on above: Performed By: #### C EA, CBC, FE and TIBC, CMP, TONY ####[address] Serum or plasma albumin/glob ulin mass ratioOrdered By: Leigha Nelson on 08-30-2023 Albumin/Globulin [Mass ratio] 1.8 {ratio} Normal [facility] Comment on above: Performed By: #### C EA, CBC, FE and TIBC, CMP, TONY ####[address] Serum or plasma anion gap de terminationOrdered By: Leigha Nelsno on 08-30-2023 Anion gap [Moles/Vol] 10.0 mmol/L Normal 6.0-15.0 [facility] Comment on above: Performed By: #### C EA, CBC, FE and TIBC, CMP, TONY ####[address] Serum or plasma carcinoembry onic antigen measurement (mass/volume)Ordered By: Leigha Nelson on 08-30-2023 Carcinoembryonic Ag [Mass/Vol] 2.1 ng/mL 0.0-3.0 [facility] Sodium [Moles/volume] in Ser um or PlasmaOrdered By: Leigha Nelson on 08-30-2023 Sodium [Moles/Vol] 143 mmol/L Normal 136-145 [facility] Comment on above: Performed By: #### C EA, CBC, FE and TIBC, CMP, TONY ####[address] Transferrin [Mass/volume] in Serum or PlasmaOrdered By: Leigha Nelson on 08-30-2023 Transferrin [Mass/Vol] 207 mg/dL Normal 203-362 [facility] Comment on above: Performed By: #### C EA, CBC, FE and TIBC, CMP, TONY ####[facility] [address] [place] [address] [facility] Urea nitrogen [Mass/volume] in Serum or PlasmaOrdered By: Leigha Omar on 08-30-2023 Urea nitrogen [Mass/Vol] 51 mg/dL High 7-25 [facility] Comment on above: Performed By: #### C EA, CBC, FE and TIBC, CMP, TONY ####[facility] [address] [place] [address] [facility] ECHOCARDIO M/2D COMPLETEon 0 02-28-2023 ECHOCARDIO M/2D COMPLETE Patient: NAS REN Exam Date: 02/28/2023 : 1940 Gender:M 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 on 02/28/2023 at 20:26 Normal [facility] T3, TOTAL (TRIIODOTHYRONINE) on 02-16-2023 T3, TOTAL 83 ng/dL Normal 71-180 [facility] Comment on above: Performed By: #### F T4, PSASC #### [facility] [address] [address] [address] Benito Schwartz FREE T4on 02-15-2023 Free T4 [Mass/Vol] 1.03 ng/dL Normal 0.76-1.46 [facility] Comment on above: Performed By: #### F T4 #### [facility] [address] [place] [address] Dr. Benito Schwartz LIPID PROFILEon 02-15-2023 CHOL-HDL RATIO NORM SEE BELOW Normal [facility] Comment on above: Result Comment: 3.3 - 4.4 LOW RISK 4.4 - 7.1 AVERAGE RISK 7.1 - 11.0 MODERATE RISK >11.0 HIGH RISK Performed By: #### T SH, FT3, BMP #### [facility] [address] [place] [address] Dr. Benito Schwartz Cholesterol [Mass/Vol] 164 mg/dL Normal <=200 [facility] Comment on above: Performed By: #### T SH, FT3, BMP #### [facility] [address] [place] [address] Dr. Benito Schwartz Cholesterol in HDL [Mass/Vol] 41 mg/dL Normal 40-60 [facility] Comment on above: Performed By: #### T SH, FT3, BMP #### [facility] [address] [place] [address] Dr. Benito Schwartz Cholesterol in LDL [Mass/Vol] 104.2 mg/dL Normal [facility] Comment on above: Performed By: #### T SH, FT3, BMP #### [facility] [address] [place] [address] Dr. Benito Schwartz Cholesterol.total/Choles terol in HDL [Mass ratio] 4.0 {ratio} Normal [facility] Comment on above: Performed By: #### T SH, FT3, BMP #### [facility] [address] [address] [address] Benito Schwartz HDL NORMAL > or = 60 mg/dl - LOW CARDIOVASCULAR RISK <40 mg/dl - HIGH CARDIOVASCULAR RISK Normal [facility] Comment on above: Performed By: #### T SH, FT3, BMP #### [facility] [address] [address] [address] Benito Schwartz LDL CALC NORMAL SEE BELOW Normal [facility] Comment on above: Result Comment: <100 mg/dl OPTIMAL 100 - 129 mg/dl NEAR OR ABOVE OPTIMAL 130 - 159 mg/dl BORDERLINE HIGH 160 - 189 mg/dl HIGH >190 mg/dl VERY HIGH Performed By: #### T SH, FT3, BMP #### [facility] [address] [address] [address] Bneito Schwartz Triglyceride [Mass/Vol] 94 mg/dL Normal <=150 [facility] Comment on above: Performed By: #### T SH, FT3, BMP #### [facility] [address] [address] [address] Benito Schwartz VLDL CALC 18.8 mg/dL Normal [facility] Comment on above: Performed By: #### T SH, FT3, BMP #### [facility] [address] [place] [address] Dr. Benito Schwartz TSHon 02-15-2023 TSH 22.732 uIU/mL Critically high 0.358-3.740 [facility] Comment on above: Performed By: #### F T4, PSASC #### [facility] [address] [address] [address] Benito Schwartz PTH INTACTon 01-03-2023 PTH, Intact 46 pg/mL Normal 15-65 [facility] Comment on above: Performed By: #### U RTPCR #### [facility] [address] [address] [address] Benito Schwartz T3, TOTAL (TRIIODOTHYRONINE) on 01-03-2023 T3, TOTAL 77 ng/dL Normal 71-180 [facility] Comment on above: Performed By: #### T SH, FT3, BMP #### [facility] [address] [place] [address] Dr. Benito Schwartz CBC AUTO DIFFon 01-02-2023 BASO # 0.0 103/ul Normal 0.0-0.1 [facility] Comment on above: Performed By: #### C BC #### [facility] [address] [place] [address] Dr. Benito Schwartz Basophils/100 WBC (Bld) 0.4 % Normal 0.2-2.0 [facility] Comment on above: Performed By: #### C BC #### [facility] [address] [place] [address] Dr. Benito Schwartz EO # 0.4 103/ul Normal 0.0-0.7 [facility] Comment on above: Performed By: #### C BC #### [facility] [address] [place] [address] Dr. Benito Schwartz Eosinophils/100 WBC (Bld) 5.1 % Normal 0.9-7.0 [facility] Comment on above: Performed By: #### C BC #### [facility] [address] [place] [address] Dr. Benito Schwartz Erythrocyte distribution width (RBC) [Ratio] 13.2 % Normal 11.0-15.0 [facility] Comment on above: Performed By: #### C BC #### [facility] [address] [place] [address] Dr. Benito Schwartz Hematocrit (Bld) [Volume fraction] 37.4 % Critically low 42.0-54.0 [facility] Comment on above: Performed By: #### C BC #### [facility] [address] [place] [address] Dr. Benito Schwartz Hemoglobin (Bld) [Mass/Vol] 12.4 g/dL Critically low 14.0-18.0 [facility] Comment on above: Performed By: #### C BC #### [facility] [address] [place] [address] Dr. Benito Schwartz IG # 0.03 10e3/ul Normal 0.00-0.03 [facility] Comment on above: Performed By: #### C BC #### [facility] [address] [place] [address] Dr. Benito Schwartz IG % 0.4 % Normal 0.0-0.5 [facility] Comment on above: Performed By: #### C BC #### [facility] [address] [place] [address] Dr. Benito Schwartz LYMPH # 1.6 103/ul Normal 1.2-3.8 [facility] Comment on above: Performed By: #### C BC #### [facility] [address] [place] [address] Dr. Benito Schwartz Lymphocytes/100 WBC (Bld) 20.3 % Critically low 20.5-60.0 [facility] Comment on above: Performed By: #### C BC #### [facility] [address] [place] [address] Dr. Benito Schwartz MANUAL DIFF REQ NO Normal [facility] Comment on above: Performed By: #### C BC #### [facility] [address] [place] [address] Dr. Benito Schwartz MCH (RBC) [Entitic mass] 31.7 pg Normal 25.9-34.0 [facility] Comment on above: Performed By: #### C BC #### [facility] [address] [place] [address] Dr. Benito Schwartz MCHC (RBC) [Mass/Vol] 33.2 g/dL Normal 29.9-35.2 [facility] Comment on above: Performed By: #### C BC #### [facility] [address] [place] [address] Dr. Benito Schwartz MCV (RBC) [Entitic vol] 95.7 fL Critically high 80.0-94 .0 [facility] Comment on above: Performed By: #### C BC #### [facility] [address] [place] [address] Dr. Benito Schwartz MONO # 0.7 103/ul Normal 0.3-0.8 [facility] Comment on above: Performed By: #### C BC #### [facility] [address] [place] [address] Dr. Benito Schwartz Monocytes/100 WBC (Bld) 8.6 % Normal 1.7-12.0 [facility] Comment on above: Performed By: #### C BC #### [facility] [address] [place] [address] Dr. Benito Schwartz NEUT # 5.3 103/ul Normal 1.4-6.5 [facility] Comment on above: Performed By: #### C BC #### [facility] [address] [place] [address] Dr. Benito Schwartz Neutrophils/100 WBC (Bld) 65.2 % Normal 43.0-75.0 [facility] Comment on above: Performed By: #### C BC #### [facility] [address] [place] [address] Dr. Benito Schwartz Platelet mean volume (Bld) [Entitic vol] 9.0 fL Critically low 9.5-13.5 [facility] Comment on above: Performed By: #### C BC #### [facility] [address] [place] [address] Dr. Benito Schwartz PLT 209 103/ul Normal 150-450 [facility] Comment on above: Performed By: #### C BC #### [facility] [address] [place] [address] Dr. Benito Schwartz RBC 3.91 106/ul Critically low 4.70-6.10 [facility] Comment on above: Performed By: #### C BC #### [facility] [address] [place] [address] Dr. Benito Schwartz WBC 8.1 103/ul Normal 4.0-11.0 [facility] Comment on above: Performed By: #### C BC #### [facility] [address] [place] [address] Dr. Benito Schwartz FREE T4on 01-02-2023 Free T4 [Mass/Vol] 0.87 ng/dL Normal 0.76-1.46 [facility] Comment on above: Performed By: #### F T4, PSASC #### [facility] [address] [place] [address] Dr. Benito Schwartz GLYCOHEMOGLOBIN A1Con 2022 ADA RECOMMENDATION SEE BELOW Normal [facility] Comment on above: Result Comment: ADA RECOMMENDED LIMIT 4.0 - 6.0 ADA THERAPEUTIC TARGET < 7.0 ACTION SUGGESTED > 7.0 Performed By: #### C BC #### [facility] [address] [place] [address] Dr. Benito Schwartz Glucose [Mass/Vol] 126 mg/dL Normal [facility] Comment on above: Performed By: #### C BC #### [facility] [address] [place] [address] Dr. Benito Schwartz HbA1c (Bld) [Mass fraction] 6.0 % Normal 4.5-6.2 [facility] Comment on above: Performed By: #### C BC #### [facility] [address] [place] [address] Dr. Benito Schwartz MAGNESIUMon 01-02-2023 Magnesium [Mass/Vol] 2.3 mg/dL Normal 1.8-2.4 [facility] Comment on above: Performed By: #### U RTPCR #### [facility] [address] [place] [address] Dr. Benito Schwartz PHOSPHORUSon 01-02-2023 Phosphate [Mass/Vol] 4.1 mg/dL Normal 2.6-4.7 [facility] Comment on above: Performed By: #### U RTPCR #### [facility] [address] [place] [address] Dr. Benito Schwartz PROF CHEM 8 (BAS METB)on Anion gap [Moles/Vol] 11.1 mmol/L Normal [facility] Comment on above: Performed By: #### U RTPCR #### [facility] [address] [place] [address] Dr. Benito Schwartz Calcium [Mass/Vol] 8.9 mg/dL Normal 8.5-10.1 [facility] Comment on above: Performed By: #### U RTPCR #### [facility] [address] [address] [address] Benito Schwartz Chloride [Moles/Vol] 100 mmol/L Normal 98-107 [facility] Comment on above: Performed By: #### U RTPCR #### [facility] [address] [address] [address] Benito Schwartz CO2 [Moles/Vol] 33.2 mmol/L Critically high 21.0-32.0 [facility] Comment on above: Performed By: #### U RTPCR #### [facility] [address] [place] [address] Dr. Benito Schwartz Creatinine [Mass/Vol] 2.31 mg/dL Critically high 0.70-1.30 [facility] Comment on above: Performed By: #### U RTPCR #### [facility] [address] [place] [address] Dr. Benito Schwartz EGFR-AF EAST [place] 33 mL/min/1.73m2 Critically low >=60 [facility] Comment on above: Performed By: #### U RTPCR #### [facility] [address] [place] [address] Dr. Benito Schwartz EGFR-NON AF [place] 27 mL/min/1.73m2 Critically low >=60 [facility] Comment on above: Performed By: #### U RTPCR #### [facility] [address] [place] [address] Dr. Benito Schwartz Glucose [Mass/Vol] 112 mg/dL Critically high 74-106 [facility] Comment on above: Performed By: #### U RTPCR #### [facility] [address] [address] [address] Benito Schwartz Potassium [Moles/Vol] 4.3 mmol/L Normal 3.5-5.1 [facility] Comment on above: Performed By: #### U RTPCR #### [facility] [address] [place] [address] Dr. Benito Schwartz Sodium [Moles/Vol] 140 mmol/L Normal 136-145 [facility] Comment on above: Performed By: #### U RTPCR #### [facility] [address] [place] [address] Dr. Benito Schwartz Urea nitrogen [Mass/Vol] 51.0 mg/dL Critically high 7.0-18 .0 [facility] Comment on above: Performed By: #### U RTPCR #### [facility] [address] [place] [address] Dr. Benito Schwartz Urea nitrogen/Creatinine [Mass ratio] 22.1 mg/mg Normal [facility] Comment on above: Performed By: #### U RTPCR #### [facility] [address] [place] [address] Dr. Benito Schwartz TSHon 01-02-2023 TSH 27.692 uIU/mL Critically high 0.358-3.740 [facility] Comment on above: Performed By: #### C BC #### [facility] [address] [place] [address] Dr. Benito Schwartz UA RANDOMon 01-02-2023 Bilirubin Ql (U) Negative Normal NEGATIVE [facility] Comment on above: Performed By: #### U RTPCR #### [facility] [address] [place] [address] Dr. Benito Schwartz Clarity (U) CLEAR Normal CLEAR [facility] Comment on above: Performed By: #### U RTPCR #### [facility] [address] [place] [address] Dr. Benito Schwartz Color (U) LT. YELLOW Normal YELLOW [facility] Comment on above: Performed By: #### U RTPCR #### [facility] [address] [place] [address] Dr. Benito Schwartz Glucose Ql (U) Negative Normal NEGATIVE [facility] Comment on above: Performed By: #### U RTPCR #### [facility] [address] [place] [address] Dr. Benito Schwartz Hemoglobin Ql (U) Negative Normal NEGATIVE [facility] Comment on above: Performed By: #### U RTPCR #### [facility] [address] [place] [address] Dr. Benito Schwartz Ketones Ql (U) Negative Normal NEGATIVE [facility] Comment on above: Performed By: #### U RTPCR #### [facility] [address] [place] [address] Dr. Benito Schwartz LEUKOCYTES Negative Normal NEGATIVE [facility] Comment on above: Performed By: #### U RTPCR #### [facility] [address] [place] [address] Dr. Benito Schwartz Nitrite Ql (U) Negative Normal NEGATIVE [facility] Comment on above: Performed By: #### U RTPCR #### [facility] [address] [place] [address] Dr. Benito Schwartz pH (U) 6.0 [pH] Normal 5-9 [facility] Comment on above: Performed By: #### U RTPCR #### [facility] [address] [place] [address] Dr. Benito Schwartz SPEC GRAVITY <=1.005 Abnormal 1.005-<=1.02 5 [facility] Comment on above: Performed By: #### U RTPCR #### [facility] [address] [place] [address] Dr. Benito Schwartz UA PROTEIN Negative Normal NEGATIVE/ TRACE [facility] Comment on above: Performed By: #### U RTPCR #### [facility] [address] [place] [address] Dr. Benito Schwartz Urobilinogen Qn (U) 0.2 {Jagruti'U}/dL Normal 0.2 - 1. 0 [facility] Comment on above: Performed By: #### U RTPCR #### [facility] [address] [place] [address] Dr. Benito Schwartz URINE T PROTEIN CREAT RATIOo n 01-02-2023 Protein (U) [Mass/Vol] 19.1 mg/dL Critically high <=12.0 [facility] Comment on above: Performed By: #### F T4, PSASC #### [facility] [address] [place] [address] Dr. Benito Schwartz UR PROT CREAT RAT 0.75 Normal [facility] Comment on above: Performed By: #### F T4, PSASC #### [facility] [address] [place] [address] Dr. Benito Schwartz URINE CREAT 25.63 mg/dL Normal 20.00-300.00 [facility] Comment on above: Performed By: #### F T4, PSASC #### [facility] [address] [place] [address] Dr. Benito Schwartz VITAMIN D 25 OHon 01-02-2023 VIT D 25-OH 86.8 ng/mL Normal [facility] Comment on above: Performed By: #### U RTPCR #### [facility] [address] [place] [address] Dr. Benito Schwartz VIT D RANGES SEE BELOW Normal [facility] Comment on above: Result Comment: <20 ng/mL Vit D deficient 20 - <30 ng/mL Vit D insufficient 30 - 100 ng/mL Vit D sufficient >100 ng/mL Potential Toxicity Performed By: #### U RTPCR #### [facility] [address] [place] [address] Dr. Benito Schwartz T3, TOTAL (TRIIODOTHYRONINE) on 11-17-2022 T3, TOTAL 82 ng/dL Normal 71-180 [facility] Comment on above: Performed By: #### V ITAD #### [facility] [address] [place] [address] Dr. Benito Schwartz FREE T4on 11-16-2022 Free T4 [Mass/Vol] 0.93 ng/dL Normal 0.76-1.46 [facility] Comment on above: Performed By: #### C BC #### [facility] [address] [place] [address] Dr. Benito Schwartz TSHon 11-16-2022 TSH 31.189 uIU/mL Critically high 0.358-3.740 [facility] Comment on above: Performed By: #### F T4, PSASC #### [facility] [address] [place] [address] Dr. Benito Schwartz T3, TOTAL (TRIIODOTHYRONINE) on 10-04-2022 T3, TOTAL 43 ng/dL Critically low 71-180 [facility] Comment on above: Performed By: #### F T4, PSASC #### [facility] [address] [place] [address] Dr. Benito Schwartz FREE T4on 10-03-2022 Free T4 [Mass/Vol] 0.35 ng/dL Critically low 0.76-1.46 [facility] Comment on above: Performed By: #### F T4, PSASC #### [facility] [address] [place] [address] Dr. Benito Schwartz TSHon 10-03-2022 TSH 121.174 uIU/mL Critically high 0.358-3.740 [facility] Comment on above: Performed By: #### F T4, PSASC #### [facility] [address] [place] [address] Dr. Benito Schwartz MAGNESIUMon 09-22-2022 Magnesium [Mass/Vol] 2.5 mg/dL Critically high 1.8-2.4 [facility] Comment on above: Performed By: #### F T4 #### [facility] [address] [place] [address] Dr. Benito Schwartz PROF CHEM 8 (BAS METB)on Anion gap [Moles/Vol] 7.3 mmol/L Normal [facility] Comment on above: Performed By: #### F T4 #### [facility] [address] [place] [address] Dr. Benito Schwartz Calcium [Mass/Vol] 8.8 mg/dL Normal 8.5-10.1 [facility] Comment on above: Performed By: #### F T4 #### [facility] [address] [place] [address] Dr. Benito Schwartz Chloride [Moles/Vol] 100 mmol/L Normal 98-107 [facility] Comment on above: Performed By: #### F T4 #### [facility] [address] [place] [address] Dr. Benito Schwartz CO2 [Moles/Vol] 33.7 mmol/L Critically high 21.0-32.0 [facility] Comment on above: Performed By: #### F T4 #### [facility] [address] [address] [address] Benito Schwartz Creatinine [Mass/Vol] 2.43 mg/dL Critically high 0.70-1.30 [facility] Comment on above: Performed By: #### F T4 #### [facility] [address] [address] [address] Benito Schwartz EGFR-AF [place] 31 mL/min/1.73m2 Critically low >=60 [facility] Comment on above: Performed By: #### F T4 #### [facility] [address] [address] [address] Benito Schwartz EGFR-NON AF [place] 26 mL/min/1.73m2 Critically low >=60 [facility] Comment on above: Performed By: #### F T4 #### [facility] [address] [address] [address] Benito Schwartz Glucose [Mass/Vol] 136 mg/dL Critically high 74-106 [facility] Comment on above: Performed By: #### F T4 #### [facility] [address] [address] [address] Benito Schwartz Potassium [Moles/Vol] 4.0 mmol/L Normal 3.5-5.1 [facility] Comment on above: Performed By: #### F T4 #### [facility] [address] [address] [address] Benito Schwartz Sodium [Moles/Vol] 137 mmol/L Normal 136-145 [facility] Comment on above: Performed By: #### F T4 #### [facility] [address] [address] [address] Benito Schwartz Urea nitrogen [Mass/Vol] 47.0 mg/dL Critically high 7.0-18 .0 [facility] Comment on above: Performed By: #### F T4 #### [facility] [address] [address] [address] Benito Schwartz Urea nitrogen/Creatinine [Mass ratio] 19.3 mg/mg Normal [facility] Comment on above: Performed By: #### F T4 #### [facility] [address] [place] [address] Dr. Benito Schwartz PTH INTACTon 09-10-2022 PTH, Intact 36 pg/mL Normal 15-65 [facility] Comment on above: Performed By: #### F T4, PSASC #### [facility] [address] [place] [address] Dr. Benito Schwartz CBC AUTO DIFFon 09-09-2022 BASO # 0.0 103/ul Normal 0.0-0.1 [facility] Comment on above: Performed By: #### F T4, PSASC #### [facility] [address] [place] [address] Dr. Benito Schwartz Basophils/100 WBC (Bld) 0.5 % Normal 0.2-2.0 [facility] Comment on above: Performed By: #### F T4, PSASC #### [facility] [address] [place] [address] Dr. Benito Schwartz EO # 0.4 103/ul Normal 0.0-0.7 [facility] Comment on above: Performed By: #### F T4, PSASC #### [facility] [address] [place] [address] Dr. Benito Schwartz Eosinophils/100 WBC (Bld) 5.3 % Normal 0.9-7.0 [facility] Comment on above: Performed By: #### F T4, PSASC #### [facility] [address] [place] [address] Dr. Benito Schwartz Erythrocyte distribution width (RBC) [Ratio] 14.3 % Normal 11.0-15.0 [facility] Comment on above: Performed By: #### F T4, PSASC #### [facility] [address] [place] [address] Dr. Benito Schwartz Hematocrit (Bld) [Volume fraction] 36.9 % Critically low 42.0-54.0 [facility] Comment on above: Performed By: #### F T4, PSASC #### [facility] [address] [place] [address] Dr. Benito Schwartz Hemoglobin (Bld) [Mass/Vol] 12.4 g/dL Critically low 14.0-18.0 [facility] Comment on above: Performed By: #### F T4, PSASC #### [facility] [address] [address] [address] Benito Schwartz IG # 0.04 10e3/ul Critically high 0.00-0.03 [facility] Comment on above: Performed By: #### F T4, PSASC #### [facility] [address] [address] [address] Benito Schwartz IG % 0.5 % Normal 0.0-0.5 [facility] Comment on above: Performed By: #### F T4, PSASC #### [facility] [address] [place] [address] Dr. Benito Schwartz LYMPH # 1.6 103/ul Normal 1.2-3.8 [facility] Comment on above: Performed By: #### F T4, PSASC #### [facility] [address] [place] [address] Dr. Benito Schwartz Lymphocytes/100 WBC (Bld) 22.2 % Normal 20.5-60.0 [facility] Comment on above: Performed By: #### F T4, PSASC #### [facility] [address] [place] [address] Dr. Benito Schwartz MANUAL DIFF REQ NO Normal [facility] Comment on above: Performed By: #### F T4, PSASC #### [facility] [address] [address] [address] Benito Schwartz MCH (RBC) [Entitic mass] 31.2 pg Normal 25.9-34.0 [facility] Comment on above: Performed By: #### F T4, PSASC #### [facility] [address] [address] [address] Benito Schwartz MCHC (RBC) [Mass/Vol] 33.6 g/dL Normal 29.9-35.2 [facility] Comment on above: Performed By: #### F T4, PSASC #### [facility] [address] [place] [address] Dr. Benito Schwartz MCV (RBC) [Entitic vol] 92.7 fL Normal 80.0-94.0 [facility] Comment on above: Performed By: #### F T4, PSASC #### [facility] [address] [place] [address] Dr. Benito Schwartz MONO # 0.5 103/ul Normal 0.3-0.8 [facility] Comment on above: Performed By: #### F T4, PSASC #### [facility] [address] [place] [address] Dr. Benito Schwartz Monocytes/100 WBC (Bld) 6.4 % Normal 1.7-12.0 [facility] Comment on above: Performed By: #### F T4, PSASC #### [facility] [address] [place] [address] Dr. Benito Schwartz NEUT # 4.8 103/ul Normal 1.4-6.5 [facility] Comment on above: Performed By: #### F T4, PSASC #### [facility] [address] [place] [address] Dr. Benito Schwartz Neutrophils/100 WBC (Bld) 65.1 % Normal 43.0-75.0 [facility] Comment on above: Performed By: #### F T4, PSASC #### [facility] [address] [place] [address] Dr. Benito Schwartz Platelet mean volume (Bld) [Entitic vol] 8.7 fL Critically low 9.5-13.5 [facility] Comment on above: Performed By: #### F T4, PSASC #### [facility] [address] [place] [address] Dr. Benito Schwartz PLT 206 103/ul Normal 150-450 [facility] Comment on above: Performed By: #### F T4, PSASC #### [facility] [address] [place] [address] Dr. Benito Schwartz RBC 3.98 106/ul Critically low 4.70-6.10 [facility] Comment on above: Performed By: #### F T4, PSASC #### [facility] [address] [place] [address] Dr. Benito Schwartz WBC 7.4 103/ul Normal 4.0-11.0 [facility] Comment on above: Performed By: #### F T4, PSASC #### [facility] [address] [place] [address] Dr. Benito Schwartz MAGNESIUMon 09-09-2022 Magnesium [Mass/Vol] 2.1 mg/dL Normal 1.8-2.4 [facility] Comment on above: Performed By: #### B 12FOL, FETIBC #### [facility] [address] [place] [address] Dr. Benito Schwartz PHOSPHORUSon 09-09-2022 Phosphate [Mass/Vol] 3.2 mg/dL Normal 2.6-4.7 [facility] Comment on above: Performed By: #### B 12FOL, FETIBC #### [facility] [address] [place] [address] Dr. Benito Schwartz PROF CHEM 8 (BAS METB)on Anion gap [Moles/Vol] 10.1 mmol/L Normal [facility] Comment on above: Performed By: #### B 12FOL, FETIBC #### [facility] [address] [place] [address] Dr. Benito Schwartz Calcium [Mass/Vol] 9.3 mg/dL Normal 8.5-10.1 [facility] Comment on above: Performed By: #### B 12FOL, FETIBC #### [facility] [address] [place] [address] Dr. Benito Schwartz Chloride [Moles/Vol] 99 mmol/L Normal 98-107 [facility] Comment on above: Performed By: #### B 12FOL, FETIBC #### [facility] [address] [place] [address] Dr. Benito Schwartz CO2 [Moles/Vol] 32.4 mmol/L Critically high 21.0-32.0 [facility] Comment on above: Performed By: #### B 12FOL, FETIBC #### [facility] [address] [address] [address] Benito Schwartz Creatinine [Mass/Vol] 2.77 mg/dL Critically high 0.70-1.30 [facility] Comment on above: Performed By: #### B 12FOL, FETIBC #### [facility] [address] [place] [address] Dr. Benito Schwartz EGFR-AF [place] 27 mL/min/1.73m2 Critically low >=60 [facility] Comment on above: Performed By: #### B 12FOL, FETIBC #### [facility] [address] [place] [address] Dr. Benito Schwartz EGFR-NON AF [place] 22 mL/min/1.73m2 Critically low >=60 [facility] Comment on above: Performed By: #### B 12FOL, FETIBC #### [facility] [address] [place] [address] Dr. Benito Schwartz Glucose [Mass/Vol] 166 mg/dL Critically high 74-106 [facility] Comment on above: Performed By: #### B 12FOL, FETIBC #### [facility] [address] [place] [address] Dr. Benito Schwartz Potassium [Moles/Vol] 3.5 mmol/L Normal 3.5-5.1 [facility] Comment on above: Performed By: #### B 12FOL, FETIBC #### [facility] [address] [address] [address] Benito Schwartz Sodium [Moles/Vol] 138 mmol/L Normal 136-145 [facility] Comment on above: Performed By: #### B 12FOL, FETIBC #### [facility] [address] [place] [address] Dr. Benito Schwartz Urea nitrogen [Mass/Vol] 50.0 mg/dL Critically high 7.0-18 .0 [facility] Comment on above: Performed By: #### B 12FOL, FETIBC #### [facility] [address] [place] [address] Dr. Benito Schwartz Urea nitrogen/Creatinine [Mass ratio] 18.1 mg/mg Normal [facility] Comment on above: Performed By: #### B 12FOL, FETIBC #### [facility] [address] [place] [address] Dr. Benito Schwartz UA RANDOMon 09-09-2022 Bilirubin Ql (U) Negative Normal NEGATIVE [facility] Comment on above: Performed By: #### V ITAD #### [facility] [address] [place] [address] Dr. Benito Schwartz Clarity (U) CLEAR Normal CLEAR [facility] Comment on above: Performed By: #### V ITAD #### [facility] [address] [place] [address] Dr. Benito Schwartz Color (U) LT. YELLOW Normal YELLOW [facility] Comment on above: Performed By: #### V ITAD #### [facility] [address] [place] [address] Dr. Benito Schwartz Glucose Ql (U) Negative Normal NEGATIVE [facility] Comment on above: Performed By: #### V ITAD #### [facility] [address] [place] [address] Dr. Benito Schawrtz Hemoglobin Ql (U) Negative Normal NEGATIVE [facility] Comment on above: Performed By: #### V ITAD #### [facility] [address] [place] [address] Dr. Benito Schwartz Ketones Ql (U) Negative Normal NEGATIVE [facility] Comment on above: Performed By: #### V ITAD #### [facility] [address] [place] [address] Dr. Benito Schwartz LEUKOCYTES Negative Normal NEGATIVE [facility] Comment on above: Performed By: #### V ITAD #### [facility] [address] [place] [address] Dr. Benito Schwartz Nitrite Ql (U) Negative Normal NEGATIVE [facility] Comment on above: Performed By: #### V ITAD #### [facility] [address] [place] [address] Dr. Benito Schwartz pH (U) 5.5 [pH] Normal 5-9 [facility] Comment on above: Performed By: #### V ITAD #### [facility] [address] [place] [address] Dr. Benito Schwartz SPEC GRAVITY 1.010 Normal 1.005-<=1.02 5 [facility] Comment on above: Performed By: #### V ITAD #### [facility] [address] [place] [address] Dr. Benito Schwartz UA PROTEIN Negative Normal NEGATIVE/ TRACE [facility] Comment on above: Performed By: #### V ITAD #### [facility] [address] [place] [address] Dr. Benito Schwartz Urobilinogen Qn (U) 0.2 {Jagruti'U}/dL Normal 0.2 - 1. 0 [facility] Comment on above: Performed By: #### V ITAD #### [facility] [address] [place] [address] Dr. Benito Schwartz URINE T PROTEIN CREAT RATIOo n 09-09-2022 Protein (U) [Mass/Vol] 16.4 mg/dL Critically high <=12.0 [facility] Comment on above: Performed By: #### MELISA KNIGHT3, BMP #### [facility] [address] [place] [address] Dr. Benito Schwartz UR PROT CREAT RAT 0.79 Normal [facility] Comment on above: Performed By: #### T KRISTOPHER FT3, BMP #### [facility] [address] [place] [address] Dr. Benito Schwartz URINE CREAT 20.88 mg/dL Normal 20.00-300.00 [facility] Comment on above: Performed By: #### T NAEEM SUMMERS, BMP #### [facility] [address] [place] [address] Dr. Benito Schwartz VITAMIN D 25 OHon 09-09-2022 VIT D 25-OH 83.7 ng/mL Normal [facility] Comment on above: Performed By: #### V ITAD #### [facility] [address] [address] [address] Benito Schwartz VIT D RANGES SEE BELOW Normal [facility] Comment on above: Result Comment: <20 ng/mL Vit D deficient 20 - <30 ng/mL Vit D insufficient 30 - 100 ng/mL Vit D sufficient >100 ng/mL Potential Toxicity Performed By: #### V ITAD #### [facility] [address] [address] [address] Benito Schwartz Albumin [Mass/volume] in Ser um or PlasmaOrdered By: Leigha Nelson on 08-31-2022 Albumin [Mass/Vol] 3.9 g/dL 3.2-5.5 [facility] Basophils Auto (Bld) [#/Vol] Ordered By: Leigha Nelson on 08-31-2022 Basophils (Bld) [#/Vol] 0.0 10*3/uL 0.0-0.2 [facility] Basophils/100 WBC Auto (Bld) Ordered By: Leigha Nelson on 08-31-2022 Basophils/100 WBC (Bld) 0.5 % . F [facility] Creatinine and Glomerular fi ltration rate.predicted panel (S/P/Bld)Ordered By: Leigha Nelson on 08-31-2022 Creatinine [Mass/Vol] 2.63 mg/dL 0.64-1.27 [facility] Eosinophils Auto (Bld) [#/Vo l]Ordered By: Leigha Nelson on 08-31-2022 Eosinophils (Bld) [#/Vol] 0.3 10*3/uL 0.0-0.45 [facility] Eosinophils/100 WBC Auto (Bl d)Ordered By: Leigha Nelson on 08-31-2022 Eosinophils/100 WBC (Bld) 4.3 % . [facility] Erythrocyte distribution wid th Auto (RBC) [Ratio]Ordered By: Leigha Nelson on 08-31-2022 Erythrocyte distribution width (RBC) [Ratio] 15.7 % 12.0-14.8 [facility] Estimated glomerular filtrat ion rate (GFR) non- AmericanOrdered By: Leigha Nelson on 08-31-2022 GFR/1.73 sq M.predicted among non-blacks MDRD (S/P/Bld) [Vol rate/Area] 24 mL/Min [facility] Globulin Calc (S) [Mass/Vol] Ordered By: Leigha Nelson on 08-31-2022 Globulin (S) [Mass/Vol] 2.8 g/dL [facility] Hematocrit Auto (Bld) [Volum e fraction]Ordered By: Leigha Nelson on 08-31-2022 Hematocrit (Bld) [Volume fraction] 37.2 % 38.8-50.0 [facility] Hemoglobin [Mass/volume] in BloodOrdered By: Leigha Nelson on 08-31-2022 Hemoglobin (Bld) [Mass/Vol] 12.4 g/dL 13.0-17.0 [facility] - Hematology and Cell countsOrdered By: Leigha Nelson on 08-31-2022 Nucleated RBC/100 WBC (Bld) [Ratio] 0.1 % 0-0.5 [facility] Leukocytes [#/volume] in Blo od by Automated countOrdered By: Leigha Nelson on 08-31-2022 WBC (Bld) [#/Vol] 6.7 10*3/uL 4.5-11.0 [facility] Lymphocytes Auto (Bld) [#/Vo l]Ordered By: Leigha Nelson on 08-31-2022 Lymphocytes (Bld) [#/Vol] 1.2 10*3/uL 1.00-4.8 [facility] Lymphocytes/100 WBC Auto (Bl d)Ordered By: Leigha Nelson on 08-31-2022 Lymphocytes/100 WBC (Bld) 18.5 % . [facility] MCH Auto (RBC) [Entitic mass ]Ordered By: Leigha Nelson on 08-31-2022 MCH (RBC) [Entitic mass] 31.0 pg 27.5-35.2 [facility] MCHC Auto (RBC) [Mass/Vol]Or dered By: Leigha Nelson on 08-31-2022 MCHC (RBC) [Mass/Vol] 33.4 g/dL 32.5-35.6 [facility] MCV Auto (RBC) [Entitic vol] Ordered By: Leigha Nelson on 08-31-2022 MCV (RBC) [Entitic vol] 92.9 fL 83.5-101 [facility] Monocytes Auto (Bld) [#/Vol] Ordered By: Leigha Nelson on 08-31-2022 Monocytes (Bld) [#/Vol] 0.6 10*3/uL 0.0-0.8 [facility] Monocytes/100 WBC Auto (Bld) Ordered By: Leigha Nelson on 08-31-2022 Monocytes/100 WBC (Bld) 8.4 % . [facility] Neutrophils Auto (Bld) [#/Vo l]Ordered By: Leigha Nelson on 08-31-2022 Neutrophils (Bld) [#/Vol] 4.6 10*3/uL 1.8-7.7 [facility] Neutrophils/100 WBC Auto (Bl d)Ordered By: Leigha Nelson on 08-31-2022 Neutrophils/100 WBC (Bld) 68.3 % . [facility] No Panel InformationOrdered By: Leigha Nelson on 08-31-2022 Estimated GFR () 29 mL/Min [facility] Comment on above: GFR estimated refere nce range: According to KDOQI guidelines, <60 ml/min/1.73m2 is sufficient to diagnose a patient with chronic kidney disease. Pharmacy Creatinine Clearance (Chem 26.08 [facility] Platelet mean volume Auto (B ld) [Entitic vol]Ordered By: Leigha Nelson on 08-31-2022 Platelet mean volume (Bld) [Entitic vol] 6.8 fL 6.6-10.1 [facility] Platelets Auto (Bld) [#/Vol] Ordered By: Leigha Nelson on 08-31-2022 Platelets (Bld) [#/Vol] 238 10*3/uL 150-450 [facility] Protein [Mass/volume] in Ser um or PlasmaOrdered By: Leigha Nelson on 08-31-2022 Protein [Mass/Vol] 6.7 g/dL 6.1-7.9 [facility] RBC Auto (Bld) [#/Vol]Ordere d By: Leigha Nelson on 08-31-2022 RBC (Bld) [#/Vol] 4.00 10*6/uL 3.90-5.60 [facility] Serum or plasma alanine paige otransferase measurement without P-5'-P (enzymatic activiOrdered By: Leigha Omar on 08-31-2022 ALT No additional P-5'-P [Catalytic activity/Vol] 26 U/L 10-60 [facility] Serum or plasma albumin/glob ulin mass ratioOrdered By: Leigha Omar on 08-31-2022 Albumin/Globulin [Mass ratio] 1.4 {ratio} [facility] Serum or plasma alkaline mega sphatase measurement (enzymatic activity/volume)Ordered By: Leigha Nelson on 08-31-2022 ALP [Catalytic activity/Vol] 112 U/L 32-92 [facility] Serum or plasma anion gap de terminationOrdered By: Leigha Nelson on 08-31-2022 Anion gap [Moles/Vol] 9.4 mmol/L 6.0-15.0 [facility] Serum or plasma aspartate am inotransferase measurement (enzymatic activity/volume)Ordered By: Leigha Nelson on 08-31-2022 AST [Catalytic activity/Vol] 32 U/L 10-42 [facility] Serum or plasma calcium darshan urement (mass/volume)Ordered By: Leigha Nelson on 08-31-2022 Calcium [Mass/Vol] 8.9 mg/dL 8.2-10.2 [facility] Serum or plasma carcinoembry onic antigen measurement (mass/volume)Ordered By: Leigha Nelson on 08-31-2022 Carcinoembryonic Ag [Mass/Vol] 2.5 ng/mL 0.0-3.0 [facility] Serum or plasma chloride ernestine surement (moles/volume)Ordered By: Leigha Nelson on 08-31-2022 Chloride [Moles/Vol] 98 mmol/L 95-114 [facility] Serum or plasma glucose darshan urement (mass/volume)Ordered By: Leigha Nelson on 08-31-2022 Glucose [Mass/Vol] 104 mg/dL 70-100 [facility] Comment on above: ADA recommended refe [...] plasma sodium measu rement (moles/volume)Ordered By: Leigha Talamantesrenée on 08-31-2022 Sodium [Moles/Vol] 135 mmol/L 136-146 [facility] Serum or plasma total biliru bin measurement (mass/volume)Ordered By: Leigha Omar on 08-31-2022 Bilirubin [Mass/Vol] 0.8 mg/dL 0.3-1.2 [facility] Serum or plasma total carbon dioxide measurement (moles/volume)Ordered By: Leigha Talamantesrenée on 08-31-2022 CO2 [Moles/Vol] 31.0 mmol/L 22.0-30.0 [facility] Serum or plasma urea nitroge n measurement (mass/volume)Ordered By: Leigha Talamantesrenée on 08-31-2022 Urea nitrogen [Mass/Vol] 40 mg/dL 9-23 [facility] T3, TOTAL (TRIIODOTHYRONINE) on 08-31-2022 T3, TOTAL 42 ng/dL Critically low 71-180 [facility] Comment on above: Performed By: #### F T4, PSASC #### [facility] [address] [address] [address] Benito Schwartz FREE T4on 08-30-2022 Free T4 [Mass/Vol] 0.11 ng/dL Critically low 0.76-1.46 [facility] Comment on above: Performed By: #### V ITAD #### [facility] [address] [address] [address] Benito Schwartz TSHon 08-30-2022 TSH 121.477 uIU/mL Critically high 0.358-3.740 [facility] Comment on above: Performed By: #### F T4 #### [facility] [address] [address] [address] Benito Schwartz Glucose Glucometer (BldC) [M ass/Vol]Ordered By: Ramesh Rascon on 07-21-2022 Glucose [Mass/Vol] 105 mg/dL [facility] Comment on above: Random Glucose Refer ence Range is dependent on time and content of last meal. Glucose of more than 200 mg/dL in a nonstressed, ambulatory subject supports the diagnosis of Diabetes Mellitus. T3, TOTAL (TRIIODOTHYRONINE) on 07-21-2022 T3, TOTAL 56 ng/dL Critically low 71-180 [facility] Comment on above: Performed By: #### F T4, PSASC #### [facility] [address] [place] [address] Dr. Benito Schwartz FREE T4on 07-20-2022 Free T4 [Mass/Vol] 0.48 ng/dL Critically low 0.76-1.46 [facility] Comment on above: Performed By: #### V ITAD #### [facility] [address] [address] [address] Benito Schwartz TSHon 07-20-2022 TSH 67.173 uIU/mL Critically high 0.358-3.740 [facility] Comment on above: Performed By: #### U RTPCR #### [facility] [address] [place] [address] Dr. Benito Schwartz COVID-19 SOFIAOrdered By: Lucia Rascon on 07-19-2022 SARS-CoV+SARS-CoV-2 (COVID-19) Ag IA.rapid Ql (Resp) Negative Negative [facility] Comment on above: This is a duplicate Lindsay SARS Antigen (MADHU) result to be used for statistical tracking purpose only. No Panel InformationOrdered By: Ramesh Rascon on 07-19-2022 SARS Antigen (LFIA) [facility] Albumin [Mass/volume] in Ser um or PlasmaOrdered By: Chivo Keller on 05-31-2022 Albumin [Mass/Vol] 3.9 g/dL 3.2-5.5 [facility] Basophils Auto (Bld) [#/Vol] Ordered By: Chivo Keller on 05-31-2022 Basophils (Bld) [#/Vol] 0.1 10*3/uL 0.0-0.2 [facility] Basophils/100 WBC Auto (Bld) Ordered By: Chivo Keller on 05-31-2022 Basophils/100 WBC (Bld) 0.8 % . F [facility] Blood hemoglobin measurement (mass/volume)Ordered By: Chivo Keller on 05-31-2022 Hemoglobin (Bld) [Mass/Vol] 11.1 g/dL 13.0-17.0 [facility] Blood leukocytes automated c ount (number/volume)Ordered By: Chivo Keller on 05-31-2022 WBC (Bld) [#/Vol] 8.8 10*3/uL 4.5-11.[address] [facility] [address] biopsyOrdered By: Danuta Kelly on 05-31-2022 Transferrin [Mass/Vol] 210 mg/dL 180-380 [facility] Creatinine (Bld) [Mass/Vol]O rdered By: Nikunj [...] 05-31-2022 Eosinophils (Bld) [#/Vol] 0.4 10*3/uL 0.0-0.45 [facility] Eosinophils/100 WBC Auto (Bl d)Ordered By: Chivo Keller on 05-31-2022 Eosinophils/100 WBC (Bld) 4.1 % . [facility] Erythrocyte distribution wid th Auto (RBC) [Ratio]Ordered By: Chivo Keller on 05-31-2022 Erythrocyte distribution width (RBC) [Ratio] 16.4 % 12.0-14.8 [facility] Estimated glomerular filtrat ion rate (GFR) non- AmericanOrdered By: Chivo Keller on 05-31-2022 GFR/1.73 sq M.predicted among non-blacks MDRD (S/P/Bld) [Vol rate/Area] 28 mL/Min [facility] Ferritin [Mass/volume] in Se rum or PlasmaOrdered By: Danuta Kelly on 05-31-2022 Ferritin [Mass/Vol] 96.9 ng/mL 23.9-336.2 [facility] Folate [Mass/volume] in Seru m or PlasmaOrdered By: Danuta Kelly on 05-31-2022 Folate [Mass/Vol] 17.7 ng/mL >5.9 [facility] Comment on above: Folate reference ran ge: >5.9 ng/ml The WHO technical consultation on folate and vitamin b12 deficiencies has determined that folate concentrations less than 4 ng/ml are considered deficient. Folate reference ran ge: >5.9 ng/mlThe WHO technical consultation on folate and vitamin [id number] has determined that folate concentrations lessthan 4 ng/ml are considered deficient. Globulin Calc (S) [Mass/Vol] Ordered By: Chivo Keller on 05-31-2022 Globulin (S) [Mass/Vol] 3.4 g/dL [facility] Hematocrit Auto (Bld) [Volum e fraction]Ordered By: Chivo Keller on 05-31-2022 Hematocrit (Bld) [Volume fraction] 33.6 % 38.8-50.0 [facility] Iron [Mass/volume] in Serum or PlasmaOrdered By: Danuta Kelly on 05-31-2022 Iron [Mass/Vol] 42 ug/dL 40-160 [facility] Iron binding capacity [Mass/ volume] in Serum or PlasmaOrdered By: Danuta Kelly on 05-31-2022 Iron binding capacity [Mass/Vol] 294 ug/dL 255-450 [facility] Iron saturation [Mass Fracti on] in Serum or PlasmaOrdered By: Danuta Kelly on 05-31-2022 Iron saturation [Mass fraction] 14.0 % 20-50 [facility] - Chemistry and C hemistry - challengeOrdered By: Danuta Kelly on 05-31-2022 Cobalamin (Vitamin B12) [Mass/Vol] 463 pg/mL 180-914 [facility] - Hematology and Cell countsOrdered By: Chivo Keller on 05-31-2022 Nucleated RBC/100 WBC (Bld) [Ratio] 0.0 % 0-0.5 [facility] Lymphocytes Auto (Bld) [#/Vo l]Ordered By: Chivo Keller on 05-31-2022 Lymphocytes (Bld) [#/Vol] 1.5 10*3/uL 1.00-4.8 [facility] Lymphocytes/100 WBC Auto (Bl d)Ordered By: Chivo Keller on 05-31-2022 Lymphocytes/100 WBC (Bld) 17.2 % . [facility] MCH Auto (RBC) [Entitic mass ]Ordered By: Chivo Keller on 05-31-2022 MCH (RBC) [Entitic mass] 29.2 pg 27.5-35.2 [facility] MCHC Auto (RBC) [Mass/Vol]Or dered By: Chivo Keller on 05-31-2022 MCHC (RBC) [Mass/Vol] 33.1 g/dL 32.5-35.6 [facility] MCV Auto (RBC) [Entitic vol] Ordered By: Chivo Keller on 05-31-2022 MCV (RBC) [Entitic vol] 88.2 fL 83.5-101 [facility] Monocytes Auto (Bld) [#/Vol] Ordered By: Chivo Keller on 05-31-2022 Monocytes (Bld) [#/Vol] 0.7 10*3/uL 0.0-0.8 [facility] Monocytes/100 WBC Auto (Bld) Ordered By: Chivo Keller on 05-31-2022 Monocytes/100 WBC (Bld) 8.0 % . [facility] Neutrophils Auto (Bld) [#/Vo l]Ordered By: Chivo Keller on 05-31-2022 Neutrophils (Bld) [#/Vol] 6.2 10*3/uL 1.8-7.7 [facility] Neutrophils/100 WBC Auto (Bl d)Ordered By: Chivo Keller on 05-31-2022 Neutrophils/100 WBC (Bld) 69.9 % . [facility] No Panel InformationOrdered By: Nikunj Shultz on 05-31-2022 POC Estimated GFR 32 [facility] [facility] Comment on above: GFR estimated refere nce range: According to KDOQI guidelines, <60 ml/min/1.73m2 is sufficient to diagnose a patient with chronic kidney disease. POC Estimated GFR Non- Amer 26 [facility] No Panel InformationOrdered By: Chivo Keller on 05-31-2022 Estimated GFR () 34 mL/Min [facility] Comment on above: GFR estimated refere nce range: According to KDOQI guidelines, <60 ml/min/1.73m2 is sufficient to diagnose a patient with chronic kidney disease. Pharmacy Creatinine Clearance (Chem 31.14 [facility] Platelet mean volume Auto (B ld) [Entitic vol]Ordered By: Chivo Keller on 05-31-2022 Platelet mean volume (Bld) [Entitic vol] 7.0 fL 6.6-10.1 [facility] Platelets Auto (Bld) [#/Vol] Ordered By: Chivo Keller on 05-31-2022 Platelets (Bld) [#/Vol] 308 10*3/uL 150-450 [facility] Protein [Mass/volume] in Ser um or PlasmaOrdered By: Chivo Keller on 05-31-2022 Protein [Mass/Vol] 7.3 g/dL 6.1-7.9 [facility] RBC Auto (Bld) [#/Vol]Ordere d By: Chivo Keller on 05-31-2022 RBC (Bld) [#/Vol] 3.81 10*6/uL 3.90-5.60 [facility] Serum or plasma alanine paige otransferase measurement without P-5'-P (enzymatic activiOrdered By: Chivo Keller on 05-31-2022 ALT No additional P-5'-P [Catalytic activity/Vol] 17 U/L 10-60 [facility] Serum or plasma albumin/glob ulin mass ratioOrdered By: Chivo Keller on 05-31-2022 Albumin/Globulin [Mass ratio] 1.1 {ratio} [facility] Serum or plasma alkaline mega sphatase measurement (enzymatic activity/volume)Ordered By: Chivo Keller on 05-31-2022 ALP [Catalytic activity/Vol] 140 U/L 32-92 [facility] Serum or plasma aspartate am inotransferase measurement (enzymatic activity/volume)Ordered By: Chivo Keller on 05-31-2022 AST [Catalytic activity/Vol] 22 U/L 10-42 [facility] Serum or plasma calcium darshan urement (mass/volume)Ordered By: Chivo Keller on 05-31-2022 Calcium [Mass/Vol] 9.5 mg/dL 8.2-10.2 [facility] Serum or plasma carcinoembry onic antigen measurement (mass/volume)Ordered By: Chivo Keller on 05-31-2022 Carcinoembryonic Ag [Mass/Vol] 1.8 ng/mL 0.0-3.0 [facility] Serum or plasma chloride ernestine surement (moles/volume)Ordered By: Chivo Keller on 05-31-2022 Chloride [Moles/Vol] 101 mmol/L 95-114 [facility] Serum or plasma glucose darshan urement (mass/volume)Ordered By: Chivo Keller on 05-31-2022 Glucose [Mass/Vol] 108 mg/dL 70-100 [facility] Comment on above: ADA recommended refe [...] on 05-31-2022 Sodium [Moles/Vol] 140 mmol/L 136-146 [facility] Serum or plasma total biliru bin measurement (mass/volume)Ordered By: Chivo Keller on 05-31-2022 Bilirubin [Mass/Vol] 0.5 mg/dL 0.3-1.2 [facility] Serum or plasma total carbon dioxide measurement (moles/volume)Ordered By: Chivo Keller on 05-31-2022 CO2 [Moles/Vol] 29.7 mmol/L 22.0-30.0 [facility] Serum or plasma urea nitroge n measurement (mass/volume)Ordered By: Chivo Keller on 05-31-2022 Urea nitrogen [Mass/Vol] 42 mg/dL 9- [facility] CBC W/DIFFon 05-26-2022 ABS IMM GRANS 0.1 10*3/uL Normal 0.0-0.2 [facility] Comment on above: Performed By: #### 5 0103 #### [facility] [address] ABS NEUTROPHILS 6.4 10*3/uL Normal 1.6-7.6 [facility] Comment on above: Performed By: #### 5 0103 #### [facility] [address] [place] [address], [facility] Basophils (Bld) [#/Vol] 0.0 10*3/uL Normal 0.0-0.2 [facility] Comment on above: Performed By: #### 5 0103 #### [facility] [address] [facility] [address], [facility] Basophils/100 WBC (Bld) 0.4 % Normal 0.0-1.0 [facility] Comment on above: Performed By: #### 5 0103 #### [facility] [address] [facility] Eosinophils (Bld) [#/Vol] 0.4 10*3/uL Normal 0.0-0.5 [facility] Comment on above: Performed By: #### 5 3 #### [facility] [address] [facility] [place] [address], [facility] Eosinophils/100 WBC (Bld) 4.3 % Normal 0.0-6.0 [facility] Comment on above: Performed By: #### 3 #### [facility] [address] Erythrocyte distribution width (RBC) [Ratio] 15.9 % High 11.5-15.0 [facility] Comment on above: Performed By: #### 3 #### [facility] [address] Hematocrit (Bld) [Volume fraction] 31.6 % Low 39.0-50.0 [facility] Comment on above: Performed By: #### 3 #### [facility] [address] Hemoglobin (Bld) [Mass/Vol] 10.0 g/dL Low 13.0-17.0 [facility] Comment on above: Performed By: #### 5 3 #### [facility] [address] IMMATURE GRANS 0.8 % Normal 0.0-1.0 [facility] Comment on above: Performed By: #### 102 #### [facility] [address] [place] [address], [facility] Lymphocytes (Bld) [#/Vol] 1.6 10*3/uL Normal 1.2-4.0 [facility] Comment on above: Performed By: #### 102 #### [facility] [address] [place] [address], [facility] Lymphocytes/100 WBC (Bld) 16.8 % Low 20.0-45.0 [facility] Comment on above: Performed By: #### 5 3 #### [facility] [address] [place] [address], [facility] MCH (RBC) [Entitic mass] 28.7 pg Normal 27.0-33.0 [facility] Comment on above: Performed By: #### 3 #### [facility] [address] [facility] [place] [address], [facility] MCHC (RBC) [Mass/Vol] 31.6 g/dL Low 32.0-35.0 [facility] Comment on above: Performed By: #### 5 3 #### [facility] [address] [facility] [address], [facility] MCV (RBC) [Entitic vol] 90.5 fL Normal 82.0-98.0 T [facility] Comment on above: Performed By: #### 5 3 #### [facility] [address] [facility] [place] [address], [facility] Monocytes (Bld) [#/Vol] 0.8 10*3/uL Normal 0.1-1.0 [facility] Comment on above: Performed By: #### 5 3 #### [facility] [address] [facility] [place] [address], [facility] MONOS 9.0 % Normal 5.0-12.0 [facility] Comment on above: Performed By: #### 5 3 #### [facility] [address] [facility] [place] [address], [facility] Neutrophils/100 WBC (Bld) 68.7 % Normal 40.0-72.0 [facility] Comment on above: Performed By: #### 5 3 #### [facility] [address] [facility] [place] [place] [address], [facility] Nucleated RBC/100 WBC (Bld) [Ratio] 0 % Normal 0-0 [facility] Comment on above: Performed By: #### 5 0103 #### [facility] [address] [facility] [place] [address], [facility] PLAT CNT 292 10*3/uL Normal 150-400 [facility] Comment on above: Performed By: #### 5 0103 #### [facility] [address] [facility] [place] [address], [facility] RBC (Bld) [#/Vol] 3.49 10*6/uL Low 4.20-5.70 [facility] Comment on above: Performed By: #### 5 0103 #### [facility] [address] [facility] [place] [address], [facility] WBC (Bld) [#/Vol] 9.29 10*3/uL Normal 4.00-10.60 [facility] Comment on above: Performed By: #### 5 0103 #### [facility] [address] [facility] [place] [address], [facility] IMMUNOGLOBULIN Jov[place] 2 [place] Normal [facility] Comment on above: Result Comment: Test Performed by [email or web address] [address] [place] [address] - Released 05/27/2022 12:45 IMMUNOGLOBULIN E 308 IU/mL High <101 [facility] THYROID-STIMULATING IMMUNOGL OBULINon 05-14-2022 Thyroid Sim Immunoglobulin <0.10 Normal 0.00-0.55 [facility] Comment on above: Performed By: #### C BC #### [facility] [address] [address] [address] Benito Schwartz THYROTROPIN RECEPTOR ABon Thyrotropin Receptor Ab, Serum <1.10 Normal 0.00-1.75 [facility] Comment on above: Performed By: #### C BC #### [facility] [address] [address] [address] Benito Schwartz PTH INTACTon 05-13-2022 PTH, Intact 18 pg/mL Normal 15-65 [facility] Comment on above: Performed By: #### C BC #### [facility] [address] [address] [address] Benito Schwartz T3, TOTAL (TRIIODOTHYRONINE) on 05-13-2022 T3, TOTAL 80 ng/dL Normal 71-180 [facility] Comment on above: Performed By: #### U RTPCR #### [facility] [address] [address] [address] Benito Schwartz VIT D 25-OH [facility] 2021 Vitamin D, 25-Hydroxy 84.3 ng/mL Normal 30.0-100.0 [facility] Comment on above: Result Comment: Randi min D deficiency has been defined by the [place] of [employer] and an Endocrine Society practice guideline as a level of serum 25-OH vitamin D less than 20 ng/mL (1,2). The Endocrine Society went on to further define vitamin D insufficiency as a level between 21 and 29 ng/mL (2). 1. IOM ([place] of Medicine). 2010. Dietary reference intakes for calcium and D. [place]: The National Academies Press. 2. Annamarie OVALLE, Milena LE, Jamin BURGESS, et al. Evaluation, treatment, and prevention of vitamin D deficiency: an Endocrine Society clinical practice guideline. JCEM. 2010; 96(7):1911-30. Performed By: #### U RTPCR #### [facility] [address] [place] [address] Dr. Benito Schwartz CBC AUTO DIFFon 05-12-2022 BASO # 0.0 103/ul Normal 0.0-0.1 [facility] Comment on above: Performed By: #### C BC #### [facility] [address] [address] [address] Benito Schwartz Basophils/100 WBC (Bld) 0.2 % Normal 0.2-2.0 [facility] Comment on above: Performed By: #### C BC #### [facility] [address] [place] [address] Dr. Benito Schwartz EO # 0.4 103/ul Normal 0.0-0.7 [facility] Comment on above: Performed By: #### C BC #### [facility] [address] [place] [address] Dr. Benito Schwartz Eosinophils/100 WBC (Bld) 4.4 % Normal 0.9-7.0 [facility] Comment on above: Performed By: #### C BC #### [facility] [address] [place] [address] Dr. Benito Schwartz Erythrocyte distribution width (RBC) [Ratio] 15.0 % Normal 11.0-15.0 [facility] Comment on above: Performed By: #### C BC #### [facility] [address] [place] [address] Dr. Benito Schwartz Hematocrit (Bld) [Volume fraction] 29.8 % Critically low 42.0-54.0 [facility] Comment on above: Performed By: #### C BC #### [facility] [address] [place] [address] Dr. Benito Schwartz Hemoglobin (Bld) [Mass/Vol] 9.7 g/dL Critically low 14.0-18.0 [facility] Comment on above: Performed By: #### C BC #### [facility] [address] [place] [address] Dr. Benito Schwartz IG # 0.06 10e3/ul Critically high 0.00-0.03 [facility] Comment on above: Performed By: #### C BC #### [facility] [address] [place] [address] Dr. Benito Schwartz IG % 0.7 % Critically high 0.0-0.5 [facility] Comment on above: Performed By: #### C BC #### [facility] [address] [place] [address] Dr. Benito Schwartz LYMPH # 1.9 103/ul Normal 1.2-3.8 [facility] Comment on above: Performed By: #### C BC #### [facility] [address] [address] [address] Benito Schwartz Lymphocytes/100 WBC (Bld) 21.1 % Normal 20.5-60.0 [facility] Comment on above: Performed By: #### C BC #### [facility] [address] [place] [address] Dr. Benito Schwartz MANUAL DIFF REQ NO Normal [facility] Comment on above: Performed By: #### C BC #### [facility] [address] [place] [address] Dr. Benito Schwartz MCH (RBC) [Entitic mass] 29.0 pg Normal 25.9-34.0 [facility] Comment on above: Performed By: #### C BC #### [facility] [address] [place] [address] Dr. Benito Schwartz MCHC (RBC) [Mass/Vol] 32.6 g/dL Normal 29.9-35.2 [facility] Comment on above: Performed By: #### C BC #### [facility] [address] [place] [address] Dr. Benito Schwartz MCV (RBC) [Entitic vol] 89.0 fL Normal 80.0-94.0 [facility] Comment on above: Performed By: #### C BC #### [facility] [address] [place] [address] Dr. Benito Schwartz MONO # 0.9 103/ul Critically high 0.3-0.8 [facility] Comment on above: Performed By: #### C BC #### [facility] [address] [place] [address] Dr. Benito Schwartz Monocytes/100 WBC (Bld) 9.9 % Normal 1.7-12.0 [facility] Comment on above: Performed By: #### C BC #### [facility] [address] [place] [address] Dr. Benito Schwartz NEUT # 5.8 103/ul Normal 1.4-6.5 [facility] Comment on above: Performed By: #### C BC #### [facility] [address] [place] [address] Dr. Benito Schwartz Neutrophils/100 WBC (Bld) 63.7 % Normal 43.0-75.0 [facility] Comment on above: Performed By: #### C BC #### [facility] [address] [place] [address] Dr. Benito Schwartz Platelet mean volume (Bld) [Entitic vol] 8.7 fL Critically low 9.5-13.5 [facility] Comment on above: Performed By: #### C BC #### [facility] [address] [place] [address] Dr. Benito Schwartz PLT 253 103/ul Normal 150-450 [facility] Comment on above: Performed By: #### C BC #### [facility] [address] [place] [address] Dr. Benito Schwartz RBC 3.35 106/ul Critically low 4.70-6.10 [facility] Comment on above: Performed By: #### C BC #### [facility] [address] [place] [address] Dr. Benito Schwartz WBC 9.1 103/ul Normal 4.0-11.0 [facility] Comment on above: Performed By: #### C BC #### [facility] [address] [place] [address] Dr. Benito Schwartz FREE T4on 05-12-2022 Free T4 [Mass/Vol] 1.25 ng/dL Normal 0.76-1.46 [facility] Comment on above: Performed By: #### V ITAD #### [facility] [address] [place] [address] Dr. Benito Schwartz MAGNESIUMon 05-12-2022 Magnesium [Mass/Vol] 2.1 mg/dL Normal 1.8-2.4 [facility] Comment on above: Performed By: #### F T4 #### [facility] [address] [place] [address] Dr. Benito Schawrtz PHOSPHORUSon 05-12-2022 Phosphate [Mass/Vol] 4.2 mg/dL Normal 2.6-4.7 [facility] Comment on above: Performed By: #### F T4 #### [facility] [address] [address] [address] Benito Schwartz PROF CHEM 8 (BAS METB)on Anion gap [Moles/Vol] 13.4 mmol/L Normal [facility] Comment on above: Performed By: #### F T4 #### [facility] [address] [address] [address] Benito Schwartz Calcium [Mass/Vol] 9.1 mg/dL Normal 8.5-10.1 [facility] Comment on above: Performed By: #### F T4 #### [facility] [address] [address] [address] Benito Schwartz Chloride [Moles/Vol] 103 mmol/L Normal 98-107 [facility] Comment on above: Performed By: #### F T4 #### [facility] [address] [place] [address] Dr. Benito Schwartz CO2 [Moles/Vol] 28.6 mmol/L Normal 21.0-32.0 [facility] Comment on above: Performed By: #### F T4 #### [facility] [address] [place] [address] Dr. Benito Schwartz Creatinine [Mass/Vol] 2.30 mg/dL Critically high 0.70-1.30 [facility] Comment on above: Performed By: #### F T4 #### [facility] [address] [place] [address] Dr. Benito Schwartz EGFR-AF [place] 33 mL/min/1.73m2 Critically low >=60 [facility] Comment on above: Performed By: #### F T4 #### [facility] [address] [address] [address] Benito Schwartz EGFR-NON AF [place] 27 mL/min/1.73m2 Critically low >=60 [facility] Comment on above: Performed By: #### F T4 #### [facility] [address] [address] [address] Benito Schwartz Glucose [Mass/Vol] 123 mg/dL Critically high 74-106 [facility] Comment on above: Performed By: #### F T4 #### [facility] [address] [address] [address] Benito Schwartz Potassium [Moles/Vol] 4.0 mmol/L Normal 3.5-5.1 [facility] Comment on above: Performed By: #### F T4 #### [facility] [address] [address] [address] Benito Schwartz Sodium [Moles/Vol] 141 mmol/L Normal 136-145 [facility] Comment on above: Performed By: #### F T4 #### [facility] [address] [address] [address] Benito Schwartz Urea nitrogen [Mass/Vol] 51.0 mg/dL Critically high 7.0-18 .0 [facility] Comment on above: Performed By: #### F T4 #### [facility] [address] [address] [address] Benito Schwartz Urea nitrogen/Creatinine [Mass ratio] 22.2 mg/mg Normal [facility] Comment on above: Performed By: #### F T4 #### [facility] [address] [address] [address] Benito Schwartz TSHon 05-12-2022 TSH Qn m[IU]/L Critically low 0.358-3.740 [facility] Comment on above: Performed By: #### C BC #### [facility] [address] [address] [address] Benito Schwartz UA RANDOMon 05-12-2022 Bilirubin Ql (U) Negative Normal NEGATIVE [facility] Comment on above: Performed By: #### U RTPCR #### [facility] [address] [address] [address] Benito Schwartz Clarity (U) CLEAR Normal CLEAR [facility] Comment on above: Performed By: #### U RTPCR #### [facility] [address] [address] [address] Benito Schwartz Color (U) LT. YELLOW Normal YELLOW [facility] Comment on above: Performed By: #### U RTPCR #### [facility] [address] [address] [address] Benito Schwartz Glucose Ql (U) Negative Normal NEGATIVE [facility] Comment on above: Performed By: #### U RTPCR #### [facility] [address] [place] [address] Dr. Benito Schwartz Hemoglobin Ql (U) Negative Normal NEGATIVE [facility] Comment on above: Performed By: #### U RTPCR #### [facility] [address] [place] [address] Dr. Benito Schwartz Ketones Ql (U) Negative Normal NEGATIVE [facility] Comment on above: Performed By: #### U RTPCR #### [facility] [address] [place] [address] Dr. Benito Schwartz LEUKOCYTES Negative Normal NEGATIVE [facility] Comment on above: Performed By: #### U RTPCR #### [facility] [address] [place] [address] Dr. Benito Schwartz Nitrite Ql (U) Negative Normal NEGATIVE [facility] Comment on above: Performed By: #### U RTPCR #### [facility] [address] [place] [address] Dr. Benito Schwartz pH (U) 5.5 [pH] Normal 5-9 [facility] Comment on above: Performed By: #### U RTPCR #### [facility] [address] [place] [address] Dr. Benito Schwartz SPEC GRAVITY 1.010 Normal 1.005-<=1.[address] [place] [address] Comment on above: Performed By: #### U RTPCR #### [facility] [address] [place] [address] Dr. Benito Schwartz UA PROTEIN Negative Normal NEGATIVE/ TRACE [facility] Comment on above: Performed By: #### U RTPCR #### [facility] [address] [place] [address] Dr. Benito Schwartz Urobilinogen Qn (U) 0.2 {Jagruti'U}/dL Normal 0.2 - 1. 0 [facility] Comment on above: Performed By: #### U RTPCR #### [facility] [address] [place] [address] Dr. Benito Schwartz URINE T PROTEIN CREAT RATIOo n 05-12-2022 Protein (U) [Mass/Vol] 18.3 mg/dL Critically high <=12.0 [facility] Comment on above: Performed By: #### U RTPCR #### [facility] [address] [place] [address] Dr. Benito Schwartz UR PROT CREAT RAT 0.39 Normal [facility] Comment on above: Performed By: #### U RTPCR #### [facility] [address] [place] [address] Dr. Benito Schwartz URINE CREAT 47.44 mg/dL Normal 20.00-300.00 [facility] Comment on above: Performed By: #### U RTPCR #### [facility] [address] [place] [address] Dr. Beinto Schwartz HEMOGLOBINon 05-10-2022 Hemoglobin (Bld) [Mass/Vol] 9.6 g/dL Critically low 14.0-18.0 [facility] Comment on above: Performed By: #### F T4, PSASC #### [facility] [address] [place] [address] Dr. Benito Schwartz NM THY SCAN W [place] 04-28-20 NM THY SCAN W UPT EXAMINATION: [...] JJ HI Date: 2022-04-28 09:05 Normal [facility] T3, TOTAL (TRIIODOTHYRONINE) on 04-09-2022 T3, TOTAL 167 ng/dL Normal 71-180 [facility] Comment on above: Performed By: #### B 12FOL, FETIBC #### [facility] [address] [address] [address] Benito Schwartz FREE T3on 04-08-2022 FREE T3 6.07 pg/mlL Critically high 2.18-3.98 [facility] Comment on above: Performed By: #### T SH, FT3, BMP #### [facility] [address] [place] [address] Dr. Benito Schwartz FREE T4on 04-08-2022 Free T4 [Mass/Vol] 2.62 ng/dL Critically high 0.76-1.46 [facility] Comment on above: Performed By: #### T SH, FT3, BMP #### [facility] [address] [place] [address] Dr. Benito Schwartz PROF CHEM 8 (BAS METB)on Anion gap [Moles/Vol] 13.5 mmol/L Normal [facility] Comment on above: Performed By: #### B 12FOL, FETIBC #### [facility] [address] [place] [address] Dr. Benito Schwartz Calcium [Mass/Vol] 9.9 mg/dL Normal 8.5-10.1 [facility] Comment on above: Performed By: #### B 12FOL, FETIBC #### [facility] [address] [place] [address] Dr. Benito Schwartz Chloride [Moles/Vol] 105 mmol/L Normal 98-107 [facility] Comment on above: Performed By: #### B 12FOL, FETIBC #### [facility] [address] [place] [address] Dr. Benito Schwartz CO2 [Moles/Vol] 26.5 mmol/L Normal 21.0-32.0 [facility] Comment on above: Performed By: #### B 12FOL, FETIBC #### [facility] [address] [place] [address] Dr. Benito Schwartz Creatinine [Mass/Vol] 2.33 mg/dL Critically high 0.70-1.30 [facility] Comment on above: Performed By: #### B 12FOL, FETIBC #### [facility] [address] [address] [address] Benito Schwartz EGFR-AF [place] 33 mL/min/1.73m2 Critically low >=60 [facility] Comment on above: Performed By: #### B 12FOL, FETIBC #### [facility] [address] [address] [address] Benito Schwartz EGFR-NON AF [place] 27 mL/min/1.73m2 Critically low >=60 [facility] Comment on above: Performed By: #### B 12FOL, FETIBC #### [facility] [address] [place] [address] Dr. Benito Schwartz Glucose [Mass/Vol] 104 mg/dL Normal 74-106 [facility] Comment on above: Performed By: #### B 12FOL, FETIBC #### [facility] [address] [place] [address] Dr. Benito Schwartz Potassium [Moles/Vol] 5.0 mmol/L Normal 3.5-5.1 [facility] Comment on above: Performed By: #### B 12FOL, FETIBC #### [facility] [address] [place] [address] Dr. Benito Schwartz Sodium [Moles/Vol] 140 mmol/L Normal 136-145 [facility] Comment on above: Performed By: #### B 12FOL, FETIBC #### [facility] [address] [place] [address] Dr. Benito Schwartz Urea nitrogen [Mass/Vol] 60.0 mg/dL Critically high 7.0-18 .0 [facility] Comment on above: Performed By: #### B 12FOL, FETIBC #### [facility] [address] [place] [address] Dr. Benito Schwartz Urea nitrogen/Creatinine [Mass ratio] 25.8 mg/mg Normal [facility] Comment on above: Performed By: #### B 12FOL, FETIBC #### [facility] [address] [address] [address] Benito Schwartz TSHon 04-08-2022 TSH Qn m[IU]/L Critically low 0.358-3.740 [facility] Comment on above: Performed By: #### T SH, FT3, BMP #### [facility] [address] [address] [address] Benito Schwartz BASIC METABOLIC PANELon 03-16 Calcium [Mass/Vol] 9.1 mg/dL Normal 8.6-10.3 [facility] Comment on above: Order Comment: No: D o not add to previous draw Performed By: #### 1 69, 01529 #### [facility] [address] [place] [address], [place] Chloride [Moles/Vol] 106 mmol/L Normal 98-107 [facility] Comment on above: Order Comment: No: D o not add to previous draw Performed By: #### 1 69, 15265 #### [facility] [address] [place] [address], [place] CO2 [Moles/Vol] 25 mmol/L Normal 21-31 [facility] Comment on above: Order Comment: No: D o not add to previous draw Performed By: #### 1 69, 57339 #### [facility] [address] [place] [address], [place] Creatinine [Mass/Vol] 2.12 mg/dL High 0.70-1.30 [facility] Comment on above: Order Comment: No: D o not add to previous draw Performed By: #### 1 69, 10542 #### [facility] [address] [place] [address], [place] eGFR- 37 ml/min/1.73sq m Abnormal >60 [facility] Comment on above: Order Comment: No: D o not add to previous draw Result Comment: Calc ulation may not be valid for patients over 70 years Performed By: #### 1 69, 63001 #### [facility] [address] [place] [address], [facility] eGFR- non- 30 ml/min/1.73sq m Abnormal >60 [facility] Comment on above: Order Comment: No: D o not add to previous draw Result Comment: Calc ulation may not be valid for patients over 70 years Performed By: #### 1 69, 81714 #### [facility] [address] [place] [address], [place] Glucose [Mass/Vol] 93 mg/dL Normal 70-100 [facility] Comment on above: Order Comment: No: D o not add to previous draw Performed By: #### 1 69, 81675 #### [facility] [address] [place] [address], [place] Potassium [Moles/Vol] 3.9 mmol/L Normal 3.5-5.1 [facility] Comment on above: Order Comment: No: D o not add to previous draw Performed By: #### 1 69, 59152 #### [facility] [address] [place] [address], [place] Sodium [Moles/Vol] 141 mmol/L Normal 136-145 [facility] Comment on above: Order Comment: No: D o not add to previous draw Performed By: #### 1 69, 96351 #### [facility] [address] [place] [address], [place] Urea nitrogen [Mass/Vol] 56 mg/dL High 7-25 [facility] Comment on above: Order Comment: No: D o not add to previous draw Performed By: #### 1 69, 64187 #### [facility] [address] [place] [address], [place] CBC COMPLETE BLOOD COUNTon 0 6- Erythrocyte distribution width (RBC) [Ratio] 13.6 % Normal 11.5-15.0 [facility] Comment on above: Order Comment: No: D o not add to previous draw Performed By: #### 5 0103 #### [facility] [address] [place] [address], [facility] Hematocrit (Bld) [Volume fraction] 26.2 % Low 39.0-50.0 [facility] Comment on above: Order Comment: No: D o not add to previous draw Performed By: #### 5 0103 #### [facility] [address] [place] [address], [facility] Hemoglobin (Bld) [Mass/Vol] 8.7 g/dL Low 13.0-17.0 [facility] Comment on above: Order Comment: No: D o not add to previous draw Performed By: #### 5 0103 #### [facility] [address] [place] [address], [facility] MCH (RBC) [Entitic mass] 29.3 pg Normal 27.0-33.0 [facility] Comment on above: Order Comment: No: D o not add to previous draw Performed By: #### 5 0103 #### [facility] [address] [facility] [place] [address], [facility] MCHC (RBC) [Mass/Vol] 33.2 g/dL Normal 32.0-35.0 [facility] Comment on above: Order Comment: No: D o not add to previous draw Performed By: #### 5 0103 #### [facility] [address] [facility] [address], [facility] MCV (RBC) [Entitic vol] 88.2 fL Normal 82.0-98.0 [facility] Comment on above: Order Comment: No: D o not add to previous draw Performed By: #### 5 0103 #### [facility] [address] [place] [address], [facility] Nucleated RBC/100 WBC (Bld) [Ratio] 0 % Normal 0-0 [facility] Comment on above: Order Comment: No: D o not add to previous draw Performed By: #### 5 0103 #### [facility] [address] [place] [id number], [facility] PLAT CNT 190 10*3/uL Normal 150-400 [facility] Comment on above: Order Comment: No: D o not add to previous draw Performed By: #### 5 0103 #### [facility] [address] [place] [id number], [facility] RBC (Bld) [#/Vol] 2.97 10*6/uL Low 4.20-5.70 [facility] Comment on above: Order Comment: No: D o not add to previous draw Performed By: #### 5 0103 #### [facility] [address] [place] [id number], [facility] WBC (Bld) [#/Vol] 5.20 10*3/uL Normal 4.00-10.60 [facility] Comment on above: Order Comment: No: D o not add to previous draw Performed By: #### 5 0103 #### [facility] [address] MAGNESIUM BLOODon 04-02-2022 Magnesium [Mass/Vol] 2.2 mg/dL Normal 1.9-2.7 [facility] Comment on above: Order Comment: No: D o not add to previous draw Performed By: #### 1 0070, 20439 #### [facility] [address] POC GLUCOSE LABon 04-02-2022 Glucose [Mass/Vol] 99 mg/dL Normal 70-100 [facility] Comment on above: Performed By: #### 5 0608 #### [facility] [address] [place] [address], [facility] BASIC METABOLIC PANELon - Calcium [Mass/Vol] 9.1 mg/dL Normal 8.6-10.3 [facility] Comment on above: Order Comment: No: D o not add to previous draw Performed By: #### 5 0608 #### [facility] [address] [place] [address], [place] Chloride [Moles/Vol] 106 mmol/L Normal 98-107 [facility] Comment on above: Order Comment: No: D o not add to previous draw Performed By: #### 5 0608 #### [facility] [address] [place] [address], [place] CO2 [Moles/Vol] 25 mmol/L Normal 21-31 [facility] Comment on above: Order Comment: No: D o not add to previous draw Performed By: #### 5 0608 #### [facility] [address] [place] [address], [place] Creatinine [Mass/Vol] 2.07 mg/dL High 0.70-1.30 [facility] Comment on above: Order Comment: No: D o not add to previous draw Performed By: #### 5 0608 #### [facility] [address] [place] [address], [facility] eGFR- 38 ml/min/1.73sq m Abnormal >60 [facility] Comment on above: Order Comment: No: D o not add to previous draw Result Comment: Calc ulation may not be valid for patients over 70 years Performed By: #### 5 0608 #### [facility] [address] [place] [address], [place] eGFR- non- 31 ml/min/1.73sq m Abnormal >60 [facility] Comment on above: Order Comment: No: D o not add to previous draw Result Comment: Calc ulation may not be valid for patients over 70 years Performed By: #### 5 0608 #### [facility] [address] [place] [address], [place] Glucose [Mass/Vol] 94 mg/dL Normal 70-100 [facility] Comment on above: Order Comment: No: D o not add to previous draw Performed By: #### 5 0608 #### [facility] [address] [place] [address], [facility] Potassium [Moles/Vol] 3.9 mmol/L Normal 3.5-5.1 [facility] Comment on above: Order Comment: No: D o not add to previous draw Performed By: #### 5 0608 #### [facility] [address] [place] [address], [place] Sodium [Moles/Vol] 144 mmol/L Normal 136-145 [facility] Comment on above: Order Comment: No: D o not add to previous draw Performed By: #### 5 0608 #### [facility] [address] [place] [address], [facility] Urea nitrogen [Mass/Vol] 54 mg/dL High 7-25 [facility] Comment on above: Order Comment: No: D o not add to previous draw Performed By: #### 5 0608 #### [facility] [address] [place] [address], [facility] CBC COMPLETE BLOOD COUNTon 0 - Erythrocyte distribution width (RBC) [Ratio] 13.5 % Normal 11.5-15.0 [facility] Comment on above: Order Comment: No: D o not add to previous draw Performed By: #### 5 0608 #### [facility] [address] [place] [address], [facility] Hematocrit (Bld) [Volume fraction] 27.5 % Low 39.0-50.0 [facility] Comment on above: Order Comment: No: D o not add to previous draw Performed By: #### 5 0608 #### [facility] [address] [place] [address], [place] Hemoglobin (Bld) [Mass/Vol] 8.9 g/dL Low 13.0-17.0 [facility] Comment on above: Order Comment: No: D o not add to previous draw Performed By: #### 5 0608 #### [facility] [address] [place] [address], [facility] MCH (RBC) [Entitic mass] 29.2 pg Normal 27.0-33.0 [facility] Comment on above: Order Comment: No: D o not add to previous draw Performed By: #### 5 0608 #### [facility] [address] [place] [address], [facility] MCHC (RBC) [Mass/Vol] 32.4 g/dL Normal 32.0-35.0 [facility] Comment on above: Order Comment: No: D o not add to previous draw Performed By: #### 5 0608 #### [facility] [address] [place] [address], [facility] MCV (RBC) [Entitic vol] 90.2 fL Normal 82.0-98.0 T [facility] Comment on above: Order Comment: No: D o not add to previous draw Performed By: #### 5 0608 #### [facility] [address] [facility] [place] [address], [facility] Nucleated RBC/100 WBC (Bld) [Ratio] 0 % Normal 0-0 [facility] Comment on above: Order Comment: No: D o not add to previous draw Performed By: #### 5 0608 #### [facility] [address] [facility] [address], [facility] PLAT CNT 213 10*3/uL Normal 150-400 [facility] Comment on above: Order Comment: No: D o not add to previous draw Performed By: #### 5 0608 #### [facility] [address] [facility] [place] [address], [facility] RBC (Bld) [#/Vol] 3.05 10*6/uL Low 4.20-5.70 [facility] Comment on above: Order Comment: No: D o not add to previous draw Performed By: #### 5 0608 #### [facility] [address] WBC (Bld) [#/Vol] 6.02 10*3/uL Normal 4.00-10.60 [facility] Comment on above: Order Comment: No: D o not add to previous draw Performed By: #### 5 0608 #### [facility] [address] Cardiovascular Lab Reporton 04-01-2022 Cardiovascular Lab Report [facility] Patient Name: Melody [facility] MR #: [id number] Physician: Sriram Rick Department of M.D. Medicine Service Date: 03/31/2022 Division of Birthdate: 1940 Cardiology Room #: 3AB [id number] Adult Cardiovascular Services [facility] [address] [address] Cardiovascular Laboratory Report FINAL IMPRESSIONS: 1. Moderately [...] right internal jugular vein was obtained. A 6-Portuguese 11 cm sheath was inserted without difficulty. [...] Rick M.D. Date Trans: 04/01/2022 02:03 A/hans [id number] cc: Arnie Linda D.O. [address] [place] [id number] Normal [facility] HEMOGLOBIN A1Con 04-01-2022 Glucose [Moles/Vol] 137 mmol/L Normal [facility] Comment on above: Order Comment: If no t done in EDNo: Do not add to previous draw Performed By: #### 5 0103 #### [facility] [address] [place] [address], [facility] HbA1c (Bld) [Mass fraction] 6.4 % High 4.0-6.0 [facility] Comment on above: Order Comment: If no t done in EDNo: Do not add to previous draw Performed By: #### 5 0103 #### [facility] [address] [place] [address], [facility] MAGNESIUM BLOODon 04-01-2022 Magnesium [Mass/Vol] 2.2 mg/dL Normal 1.9-2.7 [facility] Comment on above: Order Comment: No: D o not add to previous draw Performed By: #### 5 0608 #### [facility] [address] [place] [address], [place] POC GLUCOSE LABon 04-01-2022 Glucose [Mass/Vol] 114 mg/dL High 70-100 [facility] Comment on above: Performed By: #### 5 0103 #### [facility] [address] [place] [address], [place] Glucose [Mass/Vol] 117 mg/dL High 70-100 [facility] Comment on above: Performed By: #### 5 0608 #### [facility] [address] [place] [address], [place] Glucose [Mass/Vol] 139 mg/dL High 70-100 [facility] Comment on above: Performed By: #### 5 0608 #### [facility] [address] [place] [address], [place] Glucose [Mass/Vol] 98 mg/dL Normal 70-100 [facility] Comment on above: Performed By: #### 5 0608 #### [facility] [address] [place] [address], [place] BASIC METABOLIC PANELon 03-16 Calcium [Mass/Vol] 9.1 mg/dL Normal 8.6-10.3 [facility] Comment on above: Order Comment: No: D o not add to previous draw Performed By: #### 4 4396, 54960, 00677, 85464, 12977 #### [facility] [address] [place] [address], [place] Chloride [Moles/Vol] 104 mmol/L Normal 98-107 [facility] Comment on above: Order Comment: No: D o not add to previous draw Performed By: #### 4 4396, 19747, 47584, 15415, 74908 #### [facility] [address] [place] [address], [facility] CO2 [Moles/Vol] 27 mmol/L Normal 21-31 [facility] Comment on above: Order Comment: No: D o not add to previous draw Performed By: #### 4 4396, 00287, 04634, 10503, 28951 #### [facility] [address] [place] [address], [facility] Creatinine [Mass/Vol] 2.59 mg/dL High 0.70-1.30 [facility] Comment on above: Order Comment: No: D o not add to previous draw Performed By: #### 4 4396, 49847, 82175, 45445, 48869 #### [facility] [address] [place] [address], [facility] eGFR- 29 ml/min/1.73sq m Abnormal >60 [facility] Comment on above: Order Comment: No: D o not add to previous draw Result Comment: Calc ulation may not be valid for patients over 70 years Performed By: #### 4 4396, 58260, 50110, 24681, 96090 #### [facility] [address] [place] [address], [facility] eGFR- non- 24 ml/min/1.73sq m Abnormal >60 [facility] Comment on above: Order Comment: No: D o not add to previous draw Result Comment: Calc ulation may not be valid for patients over 70 years Performed By: #### 4 4396, 18574, 03077, 65842, 42815 #### [facility] [address] [place] [address], [place] Glucose [Mass/Vol] 90 mg/dL Normal 70-100 [facility] Comment on above: Order Comment: No: D o not add to previous draw Performed By: #### 4 4396, 04780, 51178, 59938, 81016 #### [facility] [address] [place] [address], [facility] Potassium [Moles/Vol] 4.2 mmol/L Normal 3.5-5.1 [facility] Comment on above: Order Comment: No: D o not add to previous draw Performed By: #### 4 4396, 22650, 59929, 73921, 57628 #### [facility] [address] [place] [address], [place] Sodium [Moles/Vol] 141 mmol/L Normal 136-145 [facility] Comment on above: Order Comment: No: D o not add to previous draw Performed By: #### 4 4396, 92065, 04707, 32168, 01578 #### [facility] [address] [place] [address], [facility] Urea nitrogen [Mass/Vol] 55 mg/dL High 7-25 [facility] Comment on above: Order Comment: No: D o not add to previous draw Performed By: #### 4 4396, 94914, 55813, 64474, 98279 #### [facility] [address] [place] [address], [facility] CBC COMPLETE BLOOD COUNTon 0 - Erythrocyte distribution width (RBC) [Ratio] 13.6 % Normal 11.5-15.0 [facility] Comment on above: Order Comment: No: D o not add to previous draw Performed By: #### 5 0608 #### [facility] [address] [place] [address], [facility] Hematocrit (Bld) [Volume fraction] 27.1 % Low 39.0-50.0 [facility] Comment on above: Order Comment: No: D o not add to previous draw Performed By: #### 5 0608 #### [facility] [address] [place] [address], [place] Hemoglobin (Bld) [Mass/Vol] 8.7 g/dL Low 13.0-17.0 [facility] Comment on above: Order Comment: No: D o not add to previous draw Performed By: #### 5 0608 #### [facility] [address] MCH (RBC) [Entitic mass] 28.8 pg Normal 27.0-33.0 [facility] Comment on above: Order Comment: No: D o not add to previous draw Performed By: #### 5 0608 #### [facility] [address] MCHC (RBC) [Mass/Vol] 32.1 g/dL Normal 32.0-35.0 [facility] Comment on above: Order Comment: No: D o not add to previous draw Performed By: #### 5 0608 #### [facility] [address] MCV (RBC) [Entitic vol] 89.7 fL Normal 82.0-98.0 T [facility] Comment on above: Order Comment: No: D o not add to previous draw Performed By: #### 5 0608 #### [facility] [address] Nucleated RBC/100 WBC (Bld) [Ratio] 0 % Normal 0-0 [facility] Comment on above: Order Comment: No: D o not add to previous draw Performed By: #### 5 0608 #### [facility] [address] [place] [address], [facility] PLAT CNT 184 10*3/uL Normal 150-400 [facility] Comment on above: Order Comment: No: D o not add to previous draw Performed By: #### 5 0608 #### [facility] [address] [place] [address], [facility] RBC (Bld) [#/Vol] 3.02 10*6/uL Low 4.20-5.70 [facility] Comment on above: Order Comment: No: D o not add to previous draw Performed By: #### 5 0608 #### [facility] [address] [place] [address], [facility] WBC (Bld) [#/Vol] 5.93 10*3/uL Normal 4.00-10.60 [facility] Comment on above: Order Comment: No: D o not add to previous draw Performed By: #### 5 0608 #### [facility] [address] [place] [address], [facility] FREE T4on 03-31-2022 Free T4 [Mass/Vol] 4.55 ng/dL High 0.71-1.85 [facility] Comment on above: Performed By: #### 5 0103 #### [facility] [address] [place] [address], [facility] MAGNESIUM BLOODon 03-31-2022 Magnesium [Mass/Vol] 2.3 mg/dL Normal 1.9-2.7 [facility] Comment on above: Order Comment: No: D o not add to previous draw Performed By: #### 4 4396, 01990, 87693, 36515, 92374 #### [facility] [address] [place] [address], [facility] PHOSPHORUS BLOODon 2 Phosphate [Mass/Vol] 5.4 mg/dL High 2.5-5.0 [facility] Comment on above: Order Comment: No: D o not add to previous draw Performed By: #### 4 4396, 03001, 98398, 01807, 26827 #### [facility] [address] [place] [address], [place] POC GLUCOSE LABon 03-31-2022 Glucose [Mass/Vol] 161 mg/dL High 70-100 [facility] Comment on above: Performed By: #### 5 0608 #### [facility] [address] [place] [address], [place] Glucose [Mass/Vol] 108 mg/dL High 70-100 [facility] Comment on above: Performed By: #### 5 0608 #### [facility] [address] [facility]. [address] POC SARS COV2 ANTIGEN NEGATI VEon 03-31-2022 POC SARS COV2 ANTIGEN NEG Negative Normal NEGATIVE [facility] Comment on above: Result Comment: Nega [...] antigen from SARS-CoV-2 in direct nasopharyngeal swab (DATA ENTRY PROCESSOR) specimens from individuals who are suspected of [...] Accreditation. Performed By: #### 5 0103 #### [facility] [address] [facility]. [address] TSH3on 03-31-2022 TSH 3RD GENERATION <0.01 Critically low 0.34-5.60 [facility] Comment on above: Performed By: #### 4 4396, 66490, 23025, 50549, 67083 #### [facility] [address] BASIC METABOLIC PANELon - Calcium [Mass/Vol] 9.8 mg/dL Normal 8.6-10.3 [facility] Comment on above: Order Comment: No: D o not add to previous draw Performed By: #### 5 0103 #### [facility] [address] [place] [address], [place] Chloride [Moles/Vol] 103 mmol/L Normal 98-107 [facility] Comment on above: Order Comment: No: D o not add to previous draw Performed By: #### 5 0103 #### [facility] [address] [place] [address], [place] CO2 [Moles/Vol] 29 mmol/L Normal 21-31 [facility] Comment on above: Order Comment: No: D o not add to previous draw Performed By: #### 5 0103 #### [facility] [address] [place] [address], [place] Creatinine [Mass/Vol] 2.60 mg/dL High 0.70-1.30 [facility] Comment on above: Order Comment: No: D o not add to previous draw Performed By: #### 5 0103 #### [facility] [address] [place] [address], [facility] eGFR- 29 ml/min/1.73sq m Abnormal >60 [facility] Comment on above: Order Comment: No: D o not add to previous draw Result Comment: Calc ulation may not be valid for patients over 70 years Performed By: #### 5 0103 #### [facility] [address] [place] [address], [place] eGFR- non- 24 ml/min/1.73sq m Abnormal >60 [facility] Comment on above: Order Comment: No: D o not add to previous draw Result Comment: Calc ulation may not be valid for patients over 70 years Performed By: #### 5 0103 #### [facility] [address] [place] [address], [place] Glucose [Mass/Vol] 109 mg/dL High 70-100 [facility] Comment on above: Order Comment: No: D o not add to previous draw Performed By: #### 5 0103 #### [facility] [address] Potassium [Moles/Vol] 4.0 mmol/L Normal 3.5-5.1 [facility] Comment on above: Order Comment: No: D o not add to previous draw Performed By: #### 5 0103 #### [facility] [address] [facility]. [address] Sodium [Moles/Vol] 141 mmol/L Normal 136-145 [facility] Comment on above: Order Comment: No: D o not add to previous draw Performed By: #### 5 0103 #### [facility] [address] Urea nitrogen [Mass/Vol] 55 mg/dL High 7-25 [facility] Comment on above: Order Comment: No: D o not add to previous draw Performed By: #### 5 0103 #### [facility] [address] [facility] [place] [address], [facility] CBC W/DIFFon 03-30-2022 ABS IMM GRANS 0.0 10*3/uL Normal 0.0-0.2 [facility] Comment on above: Performed By: #### 5 0103 #### [facility] [address] [facility] [place] [address], [facility] ABS NEUTROPHILS 4.1 10*3/uL Normal 1.6-7.6 [facility] Comment on above: Performed By: #### 5 0103 #### [facility] [address] [facility] [place] [address], [facility] Basophils (Bld) [#/Vol] 0.0 10*3/uL Normal 0.0-0.2 [facility] Comment on above: Performed By: #### 5 0103 #### [facility] [address] [facility] [place] [place] [address], [facility] Basophils/100 WBC (Bld) 0.3 % Normal 0.0-1.0 [facility] Comment on above: Performed By: #### 5 0103 #### [facility] [address] [facility] [place] [address], [facility] Eosinophils (Bld) [#/Vol] 0.3 10*3/uL Normal 0.0-0.5 [facility] Comment on above: Performed By: #### 5 0103 #### [facility] [address] [place] [address], [facility] Eosinophils/100 WBC (Bld) 5.3 % Normal 0.0-6.0 [facility] Comment on above: Performed By: #### 5 0103 #### [facility] [address] Erythrocyte distribution width (RBC) [Ratio] 13.7 % Normal 11.5-15.0 [facility] Comment on above: Performed By: #### 5 0103 #### [facility] [address] Hematocrit (Bld) [Volume fraction] 30.2 % Low 39.0-50.0 [facility] Comment on above: Performed By: #### 5 0103 #### [facility] [address] [place] [address], [facility] Hemoglobin (Bld) [Mass/Vol] 9.8 g/dL Low 13.0-17.0 [facility] Comment on above: Performed By: #### 5 0103 #### [facility] [address] [place] [address], [facility] IMMATURE GRANS 0.3 % Normal 0.0-1.0 [facility] Comment on above: Performed By: #### 5 0103 #### [facility] [address] [facility] [address] Lymphocytes (Bld) [#/Vol] 1.1 10*3/uL Low 1.2-4.0 [facility] Comment on above: Performed By: #### 5 0103 #### [facility] [address] [facility] [address], [facility] Lymphocytes/100 WBC (Bld) 17.9 % Low 20.0-45.0 [facility] Comment on above: Performed By: #### 5 0103 #### [facility] [address] [facility] [address], [facility] MCH (RBC) [Entitic mass] 29.3 pg Normal 27.0-33.0 [facility] Comment on above: Performed By: #### 5 3 #### [facility] [address] [facility] [address] MCHC (RBC) [Mass/Vol] 32.5 g/dL Normal 32.0-35.0 [facility] Comment on above: Performed By: #### 5 0103 #### [facility] [address] [facility] [place] [place] [address], [facility] MCV (RBC) [Entitic vol] 90.4 fL Normal 82.0-98.0 [facility] Comment on above: Performed By: #### 5 3 #### [facility] [address] [facility] [place] [address], [facility] Monocytes (Bld) [#/Vol] 0.7 10*3/uL Normal 0.1-1.0 [facility] Comment on above: Performed By: #### 5 3 #### [facility] [address] [facility] [place] [place] [address], [facility] MONOS 11.6 % Normal 5.0-12.0 [facility] Comment on above: Performed By: #### 5 3 #### [facility] [address] [facility] [place] [address], [facility] Neutrophils/100 WBC (Bld) 64.6 % Normal 40.0-72.0 [facility] Comment on above: Performed By: #### 5 0103 #### [facility] [address] Nucleated RBC/100 WBC (Bld) [Ratio] 0 % Normal 0-0 [facility] Comment on above: Performed By: #### 5 0103 #### [facility] [address] [place] [address], [facility] PLAT CNT 215 10*3/uL Normal 150-400 [facility] Comment on above: Performed By: #### 5 0103 #### [facility] [address] RBC (Bld) [#/Vol] 3.34 10*6/uL Low 4.20-5.70 [facility] Comment on above: Performed By: #### 5 0103 #### [facility] [address] [place] [address], [facility] WBC (Bld) [#/Vol] 6.38 10*3/uL Normal 4.00-10.60 [facility] Comment on above: Performed By: #### 5 0103 #### [facility] [address] MAGNESIUM BLOODon 03-30-2022 Magnesium [Mass/Vol] 2.3 mg/dL Normal 1.9-2.7 [facility] Comment on above: Order Comment: No: D o not add to previous draw Performed By: #### 5 0103 #### [facility] [address] [place] [address], [facility] TROPONIN-Ion 03-30-2022 Troponin I.cardiac [Mass/Vol] 0.04 ng/mL Normal 0.00-0.04 [facility] Comment on above: Order Comment: No: D o not add to previous draw Result Comment: REFE RENCE RANGES: 0.00 - 0.04 ng/ml NORMAL 0.05 - 0.50 ng/ml INDETERMINATE > 0.50 ng/ml CONSISTENT WITH AN M.I. Performed By: #### 5 0103 #### [facility] [address] [place] [address], [facility] BNPon 03-25-2022 Natriuretic peptide B (Bld) [Mass/Vol] 7410.0 pg/mL Critically high <=1,800.0 [facility] Comment on above: Performed By: #### F T4 #### [facility] [address] [place] [address] Dr. Benito Schwartz PROF CHEM 8 (BAS METB)on Anion gap [Moles/Vol] 14.5 mmol/L Normal [facility] Comment on above: Performed By: #### F T4 #### [facility] [address] [place] [address] Dr. Benito Schwartz Calcium [Mass/Vol] 9.6 mg/dL Normal 8.5-10.1 [facility] Comment on above: Performed By: #### F T4 #### [facility] [address] [place] [address] Dr. Benito Schwartz Chloride [Moles/Vol] 105 mmol/L Normal 98-107 [facility] Comment on above: Performed By: #### F T4 #### [facility] [address] [place] [address] Dr. Benito Schwartz CO2 [Moles/Vol] 27.6 mmol/L Normal 21.0-32.0 [facility] Comment on above: Performed By: #### F T4 #### [facility] [address] [place] [address] Dr. Benito Schwartz Creatinine [Mass/Vol] 2.48 mg/dL Critically high 0.70-1.30 [facility] Comment on above: Performed By: #### F T4 #### [facility] [address] [place] [address] Dr. Benito Schwartz EGFR-AF [place] 31 mL/min/1.73m2 Critically low >=60 [facility] Comment on above: Performed By: #### F T4 #### [facility] [address] [address] [address] Benito Schwartz EGFR-NON AF [place] 25 mL/min/1.73m2 Critically low >=60 [facility] Comment on above: Performed By: #### F T4 #### [facility] [address] [address] [address] Benito Schwartz Glucose [Mass/Vol] 116 mg/dL Critically high 74-106 [facility] Comment on above: Performed By: #### F T4 #### [facility] [address] [address] [address] Benito Schwartz Potassium [Moles/Vol] 4.1 mmol/L Normal 3.5-5.1 [facility] Comment on above: Performed By: #### F T4 #### [facility] [address] [place] [address] Dr. Benito Schwartz Sodium [Moles/Vol] 143 mmol/L Normal 136-145 [facility] Comment on above: Performed By: #### F T4 #### [facility] [address] [address] [address] Benito Schwartz Urea nitrogen [Mass/Vol] 56.0 mg/dL Critically high 7.0-18 .0 [facility] Comment on above: Performed By: #### F T4 #### [facility] [address] [address] [address] Benito Schwartz Urea nitrogen/Creatinine [Mass ratio] 22.6 mg/mg Normal [facility] Comment on above: Performed By: #### F T4 #### [facility] [address] [address] [address] Benito Schwartz CBC AUTO DIFFon 03-07-2022 BASO # 0.0 103/ul Normal 0.0-0.1 [facility] Comment on above: Performed By: #### V ITAD #### [facility] [address] [address] [address] Benito Schwartz Basophils/100 WBC (Bld) 0.3 % Normal 0.2-2.0 [facility] Comment on above: Performed By: #### V ITAD #### [facility] [address] [place] [address] Dr. Benito Schwartz EO # 0.1 103/ul Normal 0.0-0.7 [facility] Comment on above: Performed By: #### V ITAD #### [facility] [address] [place] [address] Dr. Benito Schwartz Eosinophils/100 WBC (Bld) 2.4 % Normal 0.9-7.0 [facility] Comment on above: Performed By: #### V ITAD #### [facility] [address] [place] [address] Dr. Benito Schwartz Erythrocyte distribution width (RBC) [Ratio] 13.4 % Normal 11.0-15.0 [facility] Comment on above: Performed By: #### V ITAD #### [facility] [address] [place] [address] Dr. Benito Schwartz Hematocrit (Bld) [Volume fraction] 27.7 % Critically low 42.0-54.0 [facility] Comment on above: Performed By: #### V ITAD #### [facility] [address] [place] [address] Dr. Benito Schwartz Hemoglobin (Bld) [Mass/Vol] 8.8 g/dL Critically low 14.0-18.0 [facility] Comment on above: Performed By: #### V ITAD #### [facility] [address] [place] [address] Dr. Benito Schwartz IG # 0.02 10e3/ul Normal 0.00-0.03 [facility] Comment on above: Performed By: #### V ITAD #### [facility] [address] [place] [address] Dr. Benito Schwartz IG % 0.3 % Normal 0.0-0.5 [facility] Comment on above: Performed By: #### V ITAD #### [facility] [address] [place] [address] Dr. Benito Schwartz LYMPH # 1.1 103/ul Critically low 1.2-3.8 [facility] Comment on above: Performed By: #### V ITAD #### [facility] [address] [address] [address] Benito Schwartz Lymphocytes/100 WBC (Bld) 17.9 % Critically low 20.5-60.0 [facility] Comment on above: Performed By: #### V ITAD #### [facility] [address] [address] [address] Benito Schwartz MANUAL DIFF REQ NO Normal [facility] Comment on above: Performed By: #### V ITAD #### [facility] [address] [address] [address] Benito Schwartz MCH (RBC) [Entitic mass] 29.0 pg Normal 25.9-34.0 [facility] Comment on above: Performed By: #### V ITAD #### [facility] [address] [place] [address] Dr. Benito Schwartz MCHC (RBC) [Mass/Vol] 31.8 g/dL Normal 29.9-35.2 [facility] Comment on above: Performed By: #### V ITAD #### [facility] [address] [place] [address] Dr. Benito Schwartz MCV (RBC) [Entitic vol] 91.4 fL Normal 80.0-94.0 [facility] Comment on above: Performed By: #### V ITAD #### [facility] [address] [place] [address] Dr. Benito Schwartz MONO # 0.9 103/ul Critically high 0.3-0.8 [facility] Comment on above: Performed By: #### V ITAD #### [facility] [address] [place] [address] Dr. Benito Schwartz Monocytes/100 WBC (Bld) 15.3 % Critically high 1.7-12. 0 [facility] Comment on above: Performed By: #### V ITAD #### [facility] [address] [place] [address] Dr. Benito Schwartz NEUT # 3.7 103/ul Normal 1.4-6.5 [facility] Comment on above: Performed By: #### V ITAD #### [facility] [address] [place], [place] [address] Dr. Benito Schwartz Neutrophils/100 WBC (Bld) 63.8 % Normal 43.0-75.0 [facility] Comment on above: Performed By: #### V ITAD #### [facility] [address] [place], [place] [address] Dr. Benito Schwartz Platelet mean volume (Bld) [Entitic vol] 9.8 fL Normal 9.5-13.5 [facility] Comment on above: Performed By: #### V ITAD #### [facility] [id number] Benito Schwartz PLT 212 103/ul Normal 150-450 [facility] Comment on above: Performed By: #### V ITAD #### [facility] [address] [address] [address] Benito Schwartz RBC 3.03 106/ul Critically low 4.70-6.10 [facility] Comment on above: Performed By: #### V ITAD #### [facility] [address] [place], [place] [address] Dr. Benito Schwartz WBC 5.9 103/ul Normal 4.0-11.0 [facility] Comment on above: Performed By: #### V ITAD #### [facility] [id number] Benito Schwartz ECHOCARDIO M/2D COMPLETEon 0 03-07-2022 ECHOCARDIO M/2D COMPLETE Patient: NAS REN Exam Date: 03/07/2022 : 1940 Gender:M Ordering : DR RUPINDER GRIGSBY . Admission #: [id number] Family : DR ARNIE LINDA D.O. Order #: [id number] CLICK HERE TO VIEW EXAM ECHOCARDIOGRAM REPORT [...] Area(A4C): 23.30 cm2 Left Atrium Systolic Volume(A2C): 07556 mm3 Left Atrium Systolic Volume(A4C): 85862 mm3 Mitral Valve MV E to A [...] Rick M.D. on 03/08/2022 at 11:16 Normal [facility] OCC BLD IMMUNO SCREENon 02-14 OCCULT BLOOD Negative Normal NEGATIVE [facility] Comment on above: Performed By: #### V ITAD #### [facility] [address] [place] [address] Dr. Benito Schwartz POINT OF CARE GLUCOSEon 02-14 Glucose [Mass/Vol] 124 mg/dL Critically high 74-106 [facility] Comment on above: Performed By: #### Adria 12FOLoli FETIBC #### [facility] [address] [place] [address] Dr. Benito Schwartz PROF CHEM 8 (BAS METB)on Anion gap [Moles/Vol] 13.1 mmol/L Normal [facility] Comment on above: Performed By: #### B 12FOL, FETIBC #### [facility] [address] [place] [address] Dr. Benito Schwartz Calcium [Mass/Vol] 9.2 mg/dL Normal 8.5-10.1 [facility] Comment on above: Performed By: #### B 12FOL, FETIBC #### [facility] [address] [place] [address] Dr. Benito Schwartz Chloride [Moles/Vol] 105 mmol/L Normal 98-107 [facility] Comment on above: Performed By: #### B 12FOL, FETIBC #### [facility] [address] [address] [address] Benito Schwartz CO2 [Moles/Vol] 28.6 mmol/L Normal 21.0-32.0 [facility] [place] [facility] Comment on above: Performed By: #### B 12FOL, FETIBC #### [facility] [address] [place] [address] Dr. Benito Schwartz Creatinine [Mass/Vol] 2.22 mg/dL Critically high 0.70-1.30 [facility] Comment on above: Performed By: #### B 12FOL, FETIBC #### [facility] [address] [place] [address] Dr. Benito Schwartz EGFR-AF [place] 35 mL/min/1.73m2 Critically low >=60 [facility] Comment on above: Performed By: #### B 12FOL, FETIBC #### [facility] [address] [place] [address] Dr. Benito Schwartz EGFR-NON AF [place] 29 mL/min/1.73m2 Critically low >=60 [facility] Comment on above: Performed By: #### B 12FOL, FETIBC #### [facility] [address] [place] [address] Dr. Benito Schwartz Glucose [Mass/Vol] 110 mg/dL Critically high 74-106 [facility] Comment on above: Performed By: #### B 12FOL, FETIBC #### [facility] [address] [place] [address] Dr. Benito Schwartz Potassium [Moles/Vol] 3.7 mmol/L Normal 3.5-5.1 [facility] Comment on above: Performed By: #### B 12FOL, FETIBC #### [facility] [address] [place] [address] Dr. Benito Schwartz Sodium [Moles/Vol] 143 mmol/L Normal 136-145 [facility] Comment on above: Performed By: #### B 12FOL, FETIBC #### [facility] [address] [place] [address] Dr. Benito Schwartz Urea nitrogen [Mass/Vol] 66.0 mg/dL Critically high 7.0-18 .0 [facility] Comment on above: Performed By: #### B 12FOL, FETIBC #### [facility] [address] [address] [address] Benito Schwartz Urea nitrogen/Creatinine [Mass ratio] 29.7 mg/mg Normal [facility] Comment on above: Performed By: #### B 12FOL, FETIBC #### [facility] [address] [place] [address] Dr. Benito Schwartz CBC AUTO DIFFon 03-06-2022 BASO # 0.0 103/ul Normal 0.0-0.1 [facility] Comment on above: Performed By: #### B 12FOL, FETIBC #### [facility] [address] [place] [address] Dr. Benito Schwartz Basophils/100 WBC (Bld) 0.2 % Normal 0.2-2.0 [facility] Comment on above: Performed By: #### B 12FOL, FETIBC #### [facility] [address] [place] [address] Dr. Benito Schwartz EO # 0.1 103/ul Normal 0.0-0.7 [facility] Comment on above: Performed By: #### B 12FOL, FETIBC #### [facility] [address] [place] [address] Dr. Benito Schwartz Eosinophils/100 WBC (Bld) 2.4 % Normal 0.9-7.0 [facility] Comment on above: Performed By: #### B 12FOL, FETIBC #### [facility] [address] [place] [address] Dr. Benito Schwartz Erythrocyte distribution width (RBC) [Ratio] 13.8 % Normal 11.0-15.0 [facility] Comment on above: Performed By: #### B 12FOL, FETIBC #### [facility] [address] [place] [address] Dr. Benito Schwartz Hematocrit (Bld) [Volume fraction] 27.7 % Critically low 42.0-54.0 [facility] Comment on above: Performed By: #### B 12FOL, FETIBC #### [facility] [address] [place] [address] Dr. Benito Schwartz Hemoglobin (Bld) [Mass/Vol] 8.7 g/dL Critically low 14.0-18.0 [facility] Comment on above: Performed By: #### B 12FOL, FETIBC #### [facility] [address] [address] [address] Benito Schwartz IG # 0.02 10e3/ul Normal 0.00-0.03 [facility] Comment on above: Performed By: #### B 12FOL, FETIBC #### [facility] [address] [place] [address] Dr. Benito Schwartz IG % 0.3 % Normal 0.0-0.5 [facility] Comment on above: Performed By: #### B 12FOL, FETIBC #### [facility] [address] [place] [address] Dr. Benito Schwartz LYMPH # 1.0 103/ul Critically low 1.2-3.8 [facility] Comment on above: Performed By: #### B 12FOL, FETIBC #### [facility] [address] [place] [address] Dr. Benito Schwartz Lymphocytes/100 WBC (Bld) 16.7 % Critically low 20.5-60.0 [facility] Comment on above: Performed By: #### B 12FOL, FETIBC #### [facility] [address] [place] [address] Dr. Benito Schwartz MANUAL DIFF REQ NO Normal [facility] Comment on above: Performed By: #### B 12FOL, FETIBC #### [facility] [address] [place] [address] Dr. Benito Schwartz MCH (RBC) [Entitic mass] 29.1 pg Normal 25.9-34.0 [facility] Comment on above: Performed By: #### B 12FOL, FETIBC #### [facility] [address] [place] [address] Dr. Benito Schwartz MCHC (RBC) [Mass/Vol] 31.4 g/dL Normal 29.9-35.2 [facility] Comment on above: Performed By: #### B 12FOL, FETIBC #### [facility] [address] [place] [address] Dr. Benito Schwartz MCV (RBC) [Entitic vol] 92.6 fL Normal 80.0-94.0 [facility] Comment on above: Performed By: #### B 12FOL, FETIBC #### [facility] [address] [place] [address] Dr. Benito Schwartz MONO # 0.9 103/ul Critically high 0.3-0.8 [facility] Comment on above: Performed By: #### B 12FOL, FETIBC #### [facility] [address] [place] [address] Dr. Benito Schwartz Monocytes/100 WBC (Bld) 15.3 % Critically high 1.7-12. 0 [facility] Comment on above: Performed By: #### B 12FOL, FETIBC #### [facility] [address] [place] [address] Dr. Benito Schwartz NEUT # 3.7 103/ul Normal 1.4-6.5 [facility] Comment on above: Performed By: #### B 12FOL, FETIBC #### [facility] [address] [place] [address] Dr. Benito Schwartz Neutrophils/100 WBC (Bld) 65.1 % Normal 43.0-75.0 [facility] Comment on above: Performed By: #### B 12FOL, FETIBC #### [facility] [address] [place] [address] Dr. Benito Schwartz Platelet mean volume (Bld) [Entitic vol] 9.7 fL Normal 9.5-13.5 [facility] Comment on above: Performed By: #### B 12FOL, FETIBC #### [facility] [address] [place] [address] Dr. Benito Schwartz PLT 205 103/ul Normal 150-450 [facility] Comment on above: Performed By: #### B 12FOL, FETIBC #### [facility] [address] [address] [address] Benito Schwartz RBC 2.99 106/ul Critically low 4.70-6.10 [facility] Comment on above: Performed By: #### Adria 12FOL, FETIBC #### [facility] [address] [address] [address] Benito Schwartz WBC 5.7 103/ul Normal 4.0-11.0 [facility] Comment on above: Performed By: #### Adria 12FOLoli, FETIBC #### [facility] [address] [address] [address] HEAD WO CONon [...] ANTHONY TRACEY Date: 2022-03-06 12:33 Normal [facility] IRON AND TIBCon 03-06-2022 % SATURATION 24.7 % Normal [facility] Comment on above: Performed By: #### B 12FOL, FETIBC #### [facility] [address] [address] [address] Benito Schwartz Iron [Mass/Vol] 55.0 ug/dL Critically low 65.0-175.0 [facility] Comment on above: Performed By: #### B 12FOL, FETIBC #### [facility] [address] [address] [address] Benito Schwartz TIBC DIRECT 223.0 ug/dL Critically low 250.0-450.0 [facility] Comment on above: Performed By: #### B 12FOL, FETIBC #### [facility] [address] [address] [address] Benito Schwartz POINT OF CARE GLUCOSEon 02-14 Glucose [Mass/Vol] 145 mg/dL Critically high 74-106 [facility] Comment on above: Performed By: #### V ITAD #### [facility] [address] [place] [address] Dr. Benito Schwartz PROF CHEM 8 (BAS METB)on Anion gap [Moles/Vol] 14.6 mmol/L Normal [facility] Comment on above: Performed By: #### V ITAD #### [facility] [address] [place] [address] Dr. Benito Schwartz Calcium [Mass/Vol] 9.0 mg/dL Normal 8.5-10.1 [facility] Comment on above: Performed By: #### V ITAD #### [facility] [address] [place] [address] Dr. Benito Schwartz Chloride [Moles/Vol] 106 mmol/L Normal 98-107 [facility] Comment on above: Performed By: #### V ITAD #### [facility] [address] [address] [address] Benito Schwartz CO2 [Moles/Vol] 26.3 mmol/L Normal 21.0-32.0 [facility] Comment on above: Performed By: #### V ITAD #### [facility] [address] [place] [address] Dr. Benito Schwartz Creatinine [Mass/Vol] 2.40 mg/dL Critically high 0.70-1.30 [facility] Comment on above: Performed By: #### V ITAD #### [facility] [address] [place] [address] Dr. Benito Schwartz EGFR-AF [place] 32 mL/min/1.73m2 Critically low >=60 [facility] Comment on above: Performed By: #### V ITAD #### [facility] [address] [address] [address] Benito Schwartz EGFR-NON AF [place] 26 mL/min/1.73m2 Critically low >=60 [facility] Comment on above: Performed By: #### V ITAD #### [facility] [address] [address] [address] Benito Schwartz Glucose [Mass/Vol] 108 mg/dL Critically high 74-106 [facility] Comment on above: Performed By: #### V ITAD #### [facility] [address] [place] [address] Dr. Benito Schwartz Potassium [Moles/Vol] 3.9 mmol/L Normal 3.5-5.1 [facility] Comment on above: Performed By: #### V ITAD #### [facility] [address] [place] [address] Dr. Benito Schwartz Sodium [Moles/Vol] 143 mmol/L Normal 136-145 [facility] Comment on above: Performed By: #### V ITAD #### [facility] [address] [place] [address] Dr. Benito Schwartz Urea nitrogen [Mass/Vol] 72.0 mg/dL Critically high 7.0-18 .0 [facility] Comment on above: Performed By: #### V ITAD #### [facility] [address] [place] [address] Dr. Benito Schwartz Urea nitrogen/Creatinine [Mass ratio] 30.0 mg/mg Normal [facility] Comment on above: Performed By: #### V ITAD #### [facility] [address] [place] [address] Dr. Benito Schwartz VIT B12 AND FOLATEon 022 Cobalamin (Vitamin B12) [Mass/Vol] 432.0 pg/mL Normal 193.0-986.0 [facility] Comment on above: Performed By: #### B 12FOL, FETIBC #### [facility] [address] [place] [address] Dr. Benito Schwartz FOLATE 21.60 ng/mL Normal 8.60-58.90 [facility] Comment on above: Performed By: #### B 12FOL, FETIBC #### [facility] [address] [place] [address] Dr. Benito Schwartz BNPon 03-05-2022 Natriuretic peptide B (Bld) [Mass/Vol] 6910.0 pg/mL Critically high <=1,800.0 [facility] Comment on above: Result Comment: Test Repeated. Critical Value Verified Performed By: #### B 12FOL, FETIBC #### [facility] [address] [place] [address] Dr. Benito Schwartz CBC AUTO DIFFon 03-05-2022 BASO # 0.0 103/ul Normal 0.0-0.1 [facility] Comment on above: Performed By: #### F T4, PSASC #### [facility] [address] [place] [address] Dr. Benito Schwartz Basophils/100 WBC (Bld) 0.3 % Normal 0.2-2.0 [facility] Comment on above: Performed By: #### F T4, PSASC #### [facility] [address] [place] [address] Dr. Benito Schwartz EO # 0.2 103/ul Normal 0.0-0.7 [facility] Comment on above: Performed By: #### F T4, PSASC #### [facility] [address] [place] [address] Dr. Benito Schwartz Eosinophils/100 WBC (Bld) 2.7 % Normal 0.9-7.0 [facility] Comment on above: Performed By: #### F T4, PSASC #### [facility] [address] [place] [address] Dr. Benito Schwartz Erythrocyte distribution width (RBC) [Ratio] 13.7 % Normal 11.0-15.0 [facility] Comment on above: Performed By: #### F T4, PSASC #### [facility] [address] [place] [address] Dr. Benito Schwartz Hematocrit (Bld) [Volume fraction] 27.9 % Critically low 42.0-54.0 [facility] Comment on above: Performed By: #### F T4, PSASC #### [facility] [address] [place] [address] Dr. Benito Schwartz Hemoglobin (Bld) [Mass/Vol] 8.9 g/dL Critically low 14.0-18.0 [facility] Comment on above: Performed By: #### F T4, PSASC #### [facility] [address] [place] [address] Dr. Benito Schwartz IG # 0.01 10e3/ul Normal 0.00-0.03 [facility] Comment on above: Performed By: #### F T4, PSASC #### [facility] [address] [place] [address] Dr. Benito Schwartz IG % 0.2 % Normal 0.0-0.5 [facility] Comment on above: Performed By: #### F T4, PSASC #### [facility] [address] [place] [address] Dr. Benito Schwartz LYMPH # 1.3 103/ul Normal 1.2-3.8 [facility] Comment on above: Performed By: #### F T4, PSASC #### [facility] [address] [place] [address] Dr. Benito Schwartz Lymphocytes/100 WBC (Bld) 21.5 % Normal 20.5-60.0 [facility] Comment on above: Performed By: #### F T4, PSASC #### [facility] [address] [place] [address] Dr. Benito Schwartz MANUAL DIFF REQ NO Normal [facility] Comment on above: Performed By: #### F T4, PSASC #### [facility] [address] [place] [address] Dr. Benito Schwartz MCH (RBC) [Entitic mass] 29.5 pg Normal 25.9-34.0 [facility] Comment on above: Performed By: #### F T4, PSASC #### [facility] [address] [place] [address] Dr. Benito Schwartz MCHC (RBC) [Mass/Vol] 31.9 g/dL Normal 29.9-35.2 [facility] Comment on above: Performed By: #### F T4, PSASC #### [facility] [address] [place] [address] Dr. Benito Schwartz MCV (RBC) [Entitic vol] 92.4 fL Normal 80.0-94.0 [facility] Comment on above: Performed By: #### F T4, PSASC #### [facility] [address] [place] [address] Dr. Benito Schwartz MONO # 1.0 103/ul Critically high 0.3-0.8 [facility] Comment on above: Performed By: #### F T4, PSASC #### [facility] [address] [place] [address] Dr. Benito Schwartz Monocytes/100 WBC (Bld) 16.3 % Critically high 1.7-12. 0 [facility] Comment on above: Performed By: #### F T4, PSASC #### [facility] [address] [place] [address] Dr. Benito Schwartz NEUT # 3.5 103/ul Normal 1.4-6.5 [facility] Comment on above: Performed By: #### F T4, PSASC #### [facility] [address] [place] [address] Dr. Benito Schwartz Neutrophils/100 WBC (Bld) 59.0 % Normal 43.0-75.0 [facility] Comment on above: Performed By: #### F T4, PSASC #### [facility] [address] [place] [address] Dr. Benito Schwartz Platelet mean volume (Bld) [Entitic vol] 9.5 fL Normal 9.5-13.5 [facility] Comment on above: Performed By: #### F T4, PSASC #### [facility] [address] [place] [address] Dr. Benito Schwartz PLT 213 103/ul Normal 150-450 [facility] Comment on above: Performed By: #### F T4, PSASC #### [facility] [address] [address] [address] Benito Schwartz RBC 3.02 106/ul Critically low 4.70-6.10 [facility] Comment on above: Performed By: #### F T4, PSASC #### [facility] [address] [place] [address] Dr. Benito Schwartz WBC 5.9 103/ul Normal 4.0-11.0 [facility] Comment on above: Performed By: #### F T4, PSASC #### [facility] [address] [place] [address] Dr. Benito Schwartz CULTURE BLOODon 03-05-2022 Microscopic examination of blood, culture Culture Observations: NO GROWTH AT 5 DAYS. Normal [facility] Comment on above: Performed By: #### V ITAD #### [facility] [address] [place] [address] Dr. Benito Schwartz Covid-19 PCR (CVDTB)on 02-14 SARS-CoV-2 (COVID-19) RNA ZITA+probe Ql (Unsp spec) Not detected Normal NOT DETECTED [facility] Comment on above: Result Comment: This test is not yet approved or cleared by the [place] FDA. When there are no FDA-approved or cleared tests available, and other criteria are met, FDA can make tests available under an emergency access mechanism called an Emergency Use Authorization (EUA). The EUA for this test is supported by the [place] of Health and Human Service's (HHS's) declaration [...] SARS-CoV-2. Performed By: #### C BC #### [facility] [address] [place] [address] Dr. Benito Schwartz FREE T4on 03-05-2022 Free T4 [Mass/Vol] ng/dL Critically high 0.76-1.46 [facility] Comment on above: Performed By: #### C BC #### [facility] [address] [place] [address] Dr. Benito Schwartz LACTATE/LACTIC ACIDon 2021 Lactate [Moles/Vol] 1.2 mmol/L Normal 0.4-1.9 [facility] Comment on above: Performed By: #### F T4 #### [facility] [address] [place] [address] Dr. Benito Schwartz PROF 14(COMP METB)on 022 Albumin [Mass/Vol] 2.9 g/dL Critically low 3.4-5.0 [facility] Comment on above: Performed By: #### F T4, PSASC #### [facility] [address] [place] [address] Dr. Benito Schwartz Albumin/Globulin [Mass ratio] 0.8 {ratio} [facility] Comment on above: Performed By: #### F T4, PSASC #### [facility] [address] [place] [address] Dr. Benito Schwartz ALP [Catalytic activity/Vol] 107 U/L Normal 46-116 [facility] Comment on above: Performed By: #### F T4, PSASC #### [facility] [address] [place] [address] Dr. Benito Schwartz ALT [Catalytic activity/Vol] 25 U/L Normal 16-63 [facility] Comment on above: Performed By: #### F T4, PSASC #### [facility] [address] [place] [address] Dr. Benito Schwartz Anion gap [Moles/Vol] 14.2 mmol/L Normal [facility] Comment on above: Performed By: #### F T4, PSASC #### [facility] [address] [address] [address] Benito Schwartz AST [Catalytic activity/Vol] 17 U/L Normal 15-37 [facility] Comment on above: Performed By: #### F T4, PSASC #### [facility] [address] [place] [address] Dr. Benito Schwartz Bilirubin [Mass/Vol] 0.5 mg/dL Normal 0.2-1.0 [facility] Comment on above: Performed By: #### F T4, PSASC #### [facility] [address] [place] [address] Dr. Benito Schwartz Calcium [Mass/Vol] 9.1 mg/dL Normal 8.5-10.1 [facility] Comment on above: Performed By: #### F T4, PSASC #### [facility] [address] [place] [address] Dr. Benito Schwartz Chloride [Moles/Vol] 104 mmol/L Normal 98-107 [facility] Comment on above: Performed By: #### F T4, PSASC #### [facility] [address] [place] [address] Dr. Benito Schwartz CO2 [Moles/Vol] 27.0 mmol/L Normal 21.0-32.0 [facility] Comment on above: Performed By: #### F T4, PSASC #### [facility] [address] [place] [address] Dr. Benito Schwartz Creatinine [Mass/Vol] 2.97 mg/dL Critically high 0.70-1.30 [facility] Comment on above: Performed By: #### F T4, PSASC #### [facility] [address] [place] [address] Dr. Benito Schwartz EGFR-AF [place] 25 mL/min/1.73m2 Critically low >=60 [facility] Comment on above: Performed By: #### F T4, PSASC #### [facility] [address] [place] [address] Dr. Benito Schwartz EGFR-NON AF [place] 21 mL/min/1.73m2 Critically low >=60 [facility] Comment on above: Performed By: #### F T4, PSASC #### [facility] [address] [address] [address] Benito Schwartz Globulin (S) [Mass/Vol] 3.6 g/dL Normal [facility] Comment on above: Performed By: #### F T4, PSASC #### [facility] [address] [address] [address] Benito Schwartz Glucose [Mass/Vol] 162 mg/dL Critically high 74-106 [facility] Comment on above: Performed By: #### F T4, PSASC #### [facility] [address] [address] [address] Benito Schwartz Potassium [Moles/Vol] 4.2 mmol/L Normal 3.5-5.1 [facility] Comment on above: Performed By: #### F T4, PSASC #### [facility] [address] [place] [address] Dr. Benito Schwartz Protein [Mass/Vol] 6.5 g/dL Normal 6.4-8.2 [facility] Comment on above: Performed By: #### F T4, PSASC #### [facility] [address] [place] [address] Dr. Benito Schwartz Sodium [Moles/Vol] 141 mmol/L Normal 136-145 [facility] Comment on above: Performed By: #### F T4, PSASC #### [facility] [address] [address] [address] Benito Schwartz Urea nitrogen [Mass/Vol] 74.0 mg/dL Critically high 7.0-18 .0 [facility] Comment on above: Performed By: #### F T4, PSASC #### [facility] [address] [address] [address] Benito Schwartz Urea nitrogen/Creatinine [Mass ratio] 24.9 mg/mg Normal [facility] Comment on above: Performed By: #### F T4, PSASC #### [facility] [address] [place] [address] Dr. Benito Schwartz TROPONIN, HIGH SENSITIVITYon 03-05-2022 HSTROP 39.6 pg/mL Normal 4.0-76.1 [facility] Comment on above: Result Comment: CUT- OFF POINTS HAVE BEEN ESTABLISHED BASED ON THE FOURTH UNIVERSAL DEFINITIONS OF MYOCARDIAL INFARCTION. THE UPPER REFERENCE LIMIT (URL) OF TROPONIN, DEFINED THE 99TH PERCENTILE OF cTnI DISTRIBUTION IN A REFERENCE POPULATION, HAS BEEN CONFIRMED THE DECISION THRESHOLD FOR PA DIAGNOSIS. Performed By: #### F T4, PSASC #### [facility] [address] [address] [address] Benito Schwartz TSHon 03-05-2022 TSH Qn m[IU]/L Critically low 0.358-3.740 [facility] Comment on above: Performed By: #### F T4 #### [facility] [address] [address] [address] Benito Schwartz TSH RANGE SEE BELOW Normal [facility] Comment on above: Result Comment: <0.3 4 UIU/ml HYPERTHYROID 0.34-5.60 UIU/ml EUTHYROID >5.60 UIU/ml HYPOTHYROID Performed By: #### F T4 #### [facility] [address] [address] [address] Benito Schwartz US THYROIDon 03-04-2022 US [...] MALENA RIOS Date: 2022-03-04 13:56 Normal [facility] - Chemistry and C hemistry - challengeOrdered By: Enrrique Mckeon on 02-22-2022 Natriuretic peptide B (Bld) [Mass/Vol] 251.0 pg/mL High 5-100 [facility] TSH DL <= 0.005 mIU/L QnOrde red By: Enrrique Mckeon on 02-22-2022 TSH Qn m[IU]/L Low 0.45-5.33 [facility] Coding Summaryon 07-08-2021 Coding Summary HTMLBase 64 AkmanmlxGZa4cXs+PGh lYWQ+ZT2HTGIoY83amA QxvI5RL0fKSU3FYPCIW BEILF0MZB9nbND3DDdg N9PqrbNy YdoxkQHtOW45VMl4PLJ 2iSmtUTyxkN7ldMJlM4 l0NbLcXA70sG94HZozM TZvLqV3EaRsrhsupNXi H2feKeNapIZhPrh+PHR hYmxlIHdpZHRoPScxMD SmRfHjyBjjFN5jSt6fL GVyLWNvbGxhcHNlOiBj n2xqBGXlQNbiTT9xaCc iB9JqwXE8MZLaw2o8Cq 48dHI+WVNdMJW7gVihY Cjrs514DmLet1pjQVV6 cKWgINhdZRF4V67lx6Q 5GKEjYXVrKJY7bSA3jA 6mlVxgerxiG3FmtUDhS eU7RCE5oEGdfY4xuJri vkxlgO6jWcf+V50XVI8 XZJFNRN6CIay0V8BeGv wvdHI+HR35WVOsLX25p SUzpFLwz6oinZx4SjRe KZWbLVK8gWrwUQvuv4T dVZVyA61ryHUan2K6YH BjyWefaMCdJqAerVO7d Z5eDBbgnjvgm1pkhjmt Bijlw7krrk39iO83N17 uFQuzKROgWHT5IEKtPU MzfElzwf9jzI9dBz9+I Xunn9vjl9croSv5DmVn SRZorqFbaOzuENL6n1T pIf72O1ZcrMuwx8GzJd u5bs06uXMxu3Z1lYD0Y DlgKHXalS2jOCjnElM3 ARBcGsCtiF22pTCjJFb zZz5hlGrpcMvqIF3yOA RihvtxSHHghF4kUAIjg BVcyQblVB1mMCLollcn p557UrHdMKW1PTDqxMX rL9NhlR7gYzSjYYOcAV DdA9ZmhVWoZZhvJ684U VseTfT7CAQdwfXcT6Ph CAHzoHhwJcP1g9H3Dv7 Cm7LcbnipLLJ4TToeSA E2RkDxVfWdSkT2U1XgU zc2KVOgiHvwLJ8kC7Is HLRmdzablqrupAO6IEV wRFAbkQ15uLIdXLbmYy 3cu4O0p240KTRkLPJhc O75Tw8ytZtqZQHzvBJV wH3tivxot1zyhfcyWwL tSCBmRLd8DNx0WQTqiN anEjQvZCJ5IgX2IYT0v SAsmB4uwKkggkblgQ9o Oyc+G09wyS4pNMH1CIJ 2haxiTTLemmLkJD70ZZ 12V6MmUtrwyEEsiAR+P UVtjmZvoDluTV1vIoDa a2smm1IjQHxeB7SpLHF vIQeqPwk3RPHrSZE6gU A6fT9xNDBnBEyrb8M2l IG8D9UhokBaxs0jm8yp DUIqVXagG98hzOLox4L 7FTFkqOS4JVXjoSzpOs YewV69Rad+PGNvbGdyb 5MtCedsk6tjp9feqJf7 IjMwJSIgdmFsaWduPSJ 1k3BlHw89Y44bRQznMX RoPSIxNSUiIHZhbGlnb b8irJ4tOl7+PGNvbCB3 uFF8cJ8kHXPwOiE8SHo fH942WtKrxLUoPfftt1 vlf8ifyMy1ZhEcBZFwe dCbtEajRHQ8o7YdTh92 H01oBCspEDDsGQKaWRN xSGGamFnmrt0ylJ1mPa 8+BQ9vu3gstb23xW16t HI+FEGfYUK2oTioQLdy GXLuyE4gBGjeGxV6PAY pIfEwgC18mHZgDXkpTb 9lwXubpMyzYS3rQWBko wujv393GjZkq2inZCTc yXJeITrbLPY8W42jw3U 1DUOoYOGwBSJ6fGJ6mF 1hbGlnbjogbGVmdDsgd nBnoQnjKAwbMDbdM845 IHRvcDsnPlBhdGllbnQ eTaKzKVe6A2PlBfa0WU NisZuxRL2dlLLwDIgiJ k8uoYllxQieNQ1eEGQi kucdu352IkFbt9qeBKT upOJiMPriLDD8I08nj3 K5KBYoPXJoRZM8aDA3y W9hsMrzvjtymTKsfAxg evFzmZgiMYnoMVblS78 6IHRvcDsnPkJpcnRoIE CwxFX0MJ85TH62sROjc 9B2qQY5D5DwRTWzoktz vcudaRG7YHCrTASaiF8 7Le7deBskJh7oNXCkNL N0FTPvcLQbQ3RxnC7eQ qDbUNPjNFTvK8GfcINs KSrgC183DWrwJiD2ARO jjuAjP3HnHISxeMznXk I2q4R9Vg6AZ7N3TX44W Z61fYMbv7Q0aEF9F7Wr SOEuoddnykwvwQY3BJD uDYXodH66Qv9ujFzsRs 3nTDUkDNR0BUJwqSOfC 9CebX1qMwMzCKMgPTZu E0HniLMgYZgrP028VRl jQmV9VLThckBhJ7GmYW PfyPqeSpZ5h6J5Kz4LH Fd7IB36KP99iIEsf2D4 kPY6U0XzCQSvbyqzfpx dgYU3WNHlAQTecT10Ws 7zpDvhGh1uFVImEJO9N KKhdVJwA8VlgG4pUfTk DYZxAJPzC8YivEBqLKk uW705KUslGiW6WDYkva TfB5AgKIUssIcxXgZ7b 5D7Wm9MGYInRW62TRH3 tNM2QG95LJ53A7YqWgb vdGFibGU+PHRhYmxlIH dpZHRoPScxMDAlJyBzd RloHP1oUh2hDBPzSOQe lUpqzXDcEaWtt1xpWUP qACmjQM3fwGnpG5FiyJ D2USYxg3g4Fv19F08cF 3JvdXA+QFRdqSI1vAH1 sD1wDqFoFtP2XVcoB75 0XoYpyOXpUtexu4art9 murJk5IiK4GTGeabPus OvqYPB6z7WrDs35A63n IHdpZHRoPSIxNSUiIHZ exMivsz9swD3wKs8+PG WttVU4cYL1qK7aVrNnW mY7OKlaN292DvVepUGs Pcuhp7qyr4zjuHj4FwR nRAWdidTwcUiwZPA7h2 BdLh40H9GofRnao4ImG sd9fh58nVKgt5N8hQN8 S0SvPZKratfweZAclPw pND3zYRNhzscsHTIjxW 5sYFPmT7m7KpKmOqD5W CxyU2RywvX4ATMjkIPe XHdhQZV7T31hz8H5GGY dJERuDRM1bXY5kZ0trS lnbjogbGVmdDsgdmVyd UsjHKufTGcaO643HFCj cFudSOLshC2dZMBaiKL jkZklLI9tUHOizvtfZt FQKEKGLkhcGbJEVel2Q 3RhPmt8BZRdnOtkHQ9s yIQoMMibLe1bwGuppZu rFN2bALUngomnHUYtdQ 5pULCgjNJjaBaiQZ9nC ZFrocseq898FrVfDUI4 WWEkbUTdM7GxnK7vXbD yOXVkFDYfN5OkoQQhCO zyH257QRbgTnG5HJLgm nEyM0RuWZMjuMhrRoS0 p8U2Il1nOk8fOP1gQUW fID20QH95tKIez2E9xX F2Z1AhVWOurfshnljcd VL8JVWoBQYnlE23zYVo LCttVw9yd2F2t747FQY kGQCsdE83Or6bvEotUD OyjTIMeJ0bgzclx8ulo jmsFgDrVPXlEJl2GKa6 IFEvcLwaYqPpLLO5JaH 5APL5rDXzaB3bpHalim hltB7iKyb+NzkgWWVhc nB0F6McBba2OLXwqQgf ED0voCMeWCvhXi8qvSq drMvgYI4rJOHdhbqtKT EhrU7aOQUzpKMfrElvP F2oAAQkaskuv528WmSs SZA6UQXghWBrP8OybG2 hPoWdCMTxEGDxV2NxoK YhIBziV808UGynRwF3B WCoioXgA1YhYDDjdMxl YjI8g5P5Ru0IBIfDZD0 2CF46lBThi3L4bVV9Q5 XgXCLzbyfrkvhmlQF0Q KFvDEPqtE36rGDlZXul Nm9rg5M8h421GGMkESN jiC52Ij5fqJujVDYltE RAbP3thezur8cxyxhsM gRwFSJfXUc4MDw4VOXt qCbkBmDsWMM2EfM9MMN 9vSNtgN4buNkfizcyeC 9wOyc+I3W9U6JjMyblr HI+ZU91WLRoHJ19uADr vBGgj0jjtMe0PuDaLMS lYYM6rVffBOutx1BjBG CxI98xnXBsl1G4JEPks BnsrPMcPiAauDN5eM6w KXkxapcrp9qfcfdxVew eb9hudb08iV34J44rBF dpZHRoPSIzMCUiIHZhb Zosah5ogG5cBh6+PGNv xJW9yGL1xM2zOsRfVcO 9ZAzmO872NuDbrXMnQa vwt3yet5yfgVj8FbGfK JJiybZyuXyhQYY8u5Ei Vo36I24mYBajJGYrXWL mTCQlYRRihObxaj5xoM 9wIi8+GN3hb2ssvp15r D48dHI+WLIoRIH0fDqk PGbiJTHwmP1cVXgcQcS 9KUAhXpZihF49pVErFM xsXn9eaRulwUebTO2cL LNsjwauo620LbFov6gk HDXhoTOgEUluLKX0N87 yt4C0GPAcDPPjILC6hV K5oI8vgEhxbillqUNwp DsgdmVydGljYWwtYWxp O000CVZxfZtwAnArnMF nJ2xcwoVKYD1qBxliiQ Q+WUIvRGE4mItyDGkxK QOxfV5gYYYyT0n9AnLx PrX3QCzuT2PnwzR0GFV qxQBrGCWzqODNxE0wsy fhs2srgiyyCcWvQWPqC Ad4MHe9HAFfzTthSjNz MRH5JwU1QET8nXRilJ8 akDwdeeaxbZ0cHrf+Rk lOOjwvdGQ+QMCzUYE8q CdwLWhrKJSfqT3vMPAa A1m6VqHrYsG7PEpgY8Y nuxJ9KHRmaCSkKCEarX BXeR8ufbjnz4oibidnN fUyVEMqVJd8TYs5KBXi jUdaLmMnZYL3FiM6ISQ 2oZIyxL3kkGilhiafeQ 9wOyc+TVJOOjwvdGQ+P IFzRWA0wEyfCLfhMQSt gT2wJOFcO6n3IaWaPaT 9SXlaD4OrwqU4OXFiiL UhYXUwiAVYgH6qfoszb 8fojsbzVaHjXJZsMYa4 AEe0XURskWfvJjOeHCL 2XuE5ZHP7tJKywS9njQ jzxrwjdY9pOse+UGF5Z JO3HQ55EG45C1JxMdyj dGFibGU+PHRhYmxlIHd pZHRoPScxMDAlJyBzdH lmAX3zFb8pDNNkELVoa AyedWYzJpLgm3otOAUq ZTs (more content not included)... Normal [facility] Provider Orderson 07-05-2021 Provider Orders [id number]#[id number] [facility] Creatinine Lvlon 07-02-2021 eGFR Non AA 29 mL/min/1.73m2 Invalid Interpretation Code [facility] Comment on above: Performed By: #### [id number] #### [facility] (DEFAULT) [address] [place] [id number] eGFR AA 35 mL/min/1.73m2 Invalid Interpretation Code [facility] Comment on above: Result 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 Kidney Failure is indicated at less than 15 ml/min/1.73m2 Performed By: #### [id number] #### [facility] (DEFAULT) [address] [place] [id number] Creatinine [Mass/Vol] 2.19 mg/dL High 0.90-1.30 [facility] Comment on above: Performed By: #### [id number] #### [facility] (DEFAULT) [address] [place] [address] Vital Signs Date Time Vital Sign Value Performing Clinician Facility 08-08-2024 10:27-0400 Diastolic blood pressure 80 mm[Hg] vAery Syed MD Work Phone: [facility] 08-08-2024 10:27-0400 Heart rate 72 /min Avery Syed MD Work Phone: [facility] 08-08-2024 10:27-0400 Systolic blood pressure 150 mm[Hg] [facility] 08-08-2024 10:25-0400 Body height 180.3 cm Avery Syed MD Work Phone: [facility] 08-08-2024 10:25-0400 Body mass index (BMI) [Ratio] 30.52 kg/m2 Avery Syed MD Work Phone: [facility] 08-08-2024 10:25-0400 Body weight 99.25 kg Avery Syed MD Work Phone: [facility] 04-22-2024 10:44-0400 Body height 180.34 cm DO Arnie Ball Work Phone: [facility] 04-22-2024 10:44-0400 Body mass index (BMI) [Ratio] 30.2 kg/m2 DO Arnie Ball Work Phone: [facility] 04-22-2024 10:44-0400 Body weight 98.14 kg DO Arnie Ball Work Phone: [facility] 04-22-2024 10:44-0400 Diastolic blood pressure 69 mm[Hg] DO Arnie Ball Work Phone: [facility] 04-22-2024 10:44-0400 Heart rate 73 /min DO Arnie Ball Work Phone: [facility] 04-22-2024 10:44-0400 Respiratory rate 12 /min DO Arnie Ball Work Phone: [facility] 04-22-2024 10:44-0400 Systolic blood pressure 135 mm[Hg] DO Arnie Ball Work Phone: [facility] 03-01-2024 11:11-0400 Body height 180.34 cm DO Arnie Ball Work Phone: [facility] 03-01-2024 11:11-0400 Body mass index (BMI) [Ratio] 30.1 kg/m2 DO Arnie Ball Work Phone: [facility] 03-01-2024 11:11-0400 Body temperature 98 [degF] DO Arnie Ball Work Phone: [facility] 03-01-2024 11:11-0400 Body weight 97.97 kg DO Arnie Ball Work Phone: [facility] 03-01-2024 11:11-0400 Diastolic blood pressure 75 mm[Hg] DO Arnie Ball Work Phone: [facility] 03-01-2024 [id number] Heart rate 67 /min DO Arnie Ball Work Phone: [facility] 03-01-2024 11:11-0400 Respiratory rate 18 /min DO Arnie Ball Work Phone: [facility] 03-01-2024 11:11-0400 SaO2% (BldA) [Mass fraction] 95 % DO Arnie Ball Work Phone: [facility] 03-01-2024 11:11-0400 Systolic blood pressure 158 mm[Hg] DO Arnie Ball Work Phone: [facility] 12-18-2023 10:07-0500 Body height 180.34 cm DO Arnie Ball Work Phone: [facility] 12-18-2023 10:07-0500 Body mass index (BMI) [Ratio] 30.2 kg/m2 DO Arnie Ball Work Phone: [facility] 12-18-2023 10:07-0500 Body weight 98.2 kg DO Arnie Ball Work Phone: [facility] 12-18-2023 10:07-0500 Diastolic blood pressure 76 mm[Hg] DO Arnie Ball Work Phone: [facility] 12-18-2023 10:07-0500 Heart rate 72 /min DO Arnie Ball Work Phone: [facility] 12-18-2023 10:07-0500 Respiratory rate 12 /min DO Arnie Ball Work Phone: [facility] 12-18-2023 10:07-0500 Systolic blood pressure 131 mm[Hg] DO Arnie Ball Work Phone: [facility] 09-01-2023 13:51-0500 Body height 180.34 cm DO Arnie Ball Work Phone: [facility] 09-01-2023 13:51-0500 Body temperature 97.7 [degF] DO Arnie Ball Work Phone: [facility] 09-01-2023 13:51-0500 Body weight 98.02 kg DO Arnie Ball Work Phone: [facility] 09-01-2023 13:51-0500 Diastolic blood pressure 79 mm[Hg] DO Arnie Ball Work Phone: [facility] 09-01-2023 13:51-0500 Heart rate 70 /min DO Arnie Ball Work Phone: [facility] 09-01-2023 13:51-0500 Respiratory rate 20 /min DO Arnie Ball Work Phone: [facility] 09-01-2023 13:51-0500 SaO2% (BldA) [Mass fraction] 96 % DO Arnie Ball Work Phone: [facility] 09-01-2023 13:51-0500 Systolic blood pressure 147 mm[Hg] DO Arnie Ball Work Phone: [facility] 08-22-2023 10:00-0500 Body height Arnie Ball Other [facility] [employer] Other 08-22-2023 10:00-0500 Body mass index (BMI) [Ratio] 29.35 kg/m2 Arnie Ball Other [address] Other 08-22-2023 10:00-0500 Body weight 98.16 kg Arnie Ball Other [address] Other 08-22-2023 10:00-0500 Diastolic blood pressure 74 mm[Hg] Arnie Ball Other [address] Other 08-22-2023 10:00-0500 Respiratory rate 12 /min Arnie Ball Other [address] Other 08-22-2023 10:00-0500 Systolic blood pressure 135 mm[Hg] Arnie Ball Other [address] Other 04-20-2023 09:30-0400 Body height Arnie Ball Other [address] Other 04-20-2023 09:30-0400 Body mass index (BMI) [Ratio] 29.62 kg/m2 Arnie Ball Other [address] Other 04-20-2023 09:30-0400 Body weight 99.07 kg Arnie Ball Other [address] Other 04-20-2023 09:30-0400 Diastolic blood pressure 64 mm[Hg] Arnie Ball Other [address] Other 04-20-2023 09:30-0400 Respiratory rate 12 /min Arnie Ball Other [address] Other 04-20-2023 09:30-0400 Systolic blood pressure 113 mm[Hg] Arnie Ball Other [address] Other 12-15-2022 10:00-0500 Body height Arnie Ball Other [address] Other 12-15-2022 10:00-0500 Body mass index (BMI) [Ratio] 29.81 kg/m2 Arnie Ball Other [address] Other 12-15-2022 10:00-0500 Body weight 99.7 kg Arnie Ball Other [facility] [employer] Other 12-15-2022 10:00-0500 Diastolic blood pressure 70 mm[Hg] Arnie Ball Other [facility] [employer] Other 12-15-2022 10:00-0500 Respiratory rate 12 /min Arnie Ball Other [facility] [employer] Other 12-15-2022 10:00-0500 Systolic blood pressure 122 mm[Hg] Arnie Ball Other [facility] [employer] Other 09-02-2022 14:11-0500 Body weight 98.9 kg DO Arnie Ball Work Phone: [facility] 09-02-2022 14:11-0500 Diastolic blood pressure 72 mm[Hg] DO Arnie Ball Work Phone: [facility] 09-02-2022 14:11-0500 Heart rate 60 /min DO Arnie Ball Work Phone: [facility] 09-02-2022 14:11-0500 Respiratory rate 20 /min DO Arnie Ball Work Phone: [facility] 09-02-2022 14:11-0500 SaO2% (BldA) [Mass fraction] 96 % DO Arnie Ball Work Phone: [facility] 09-02-2022 14:11-0500 Systolic blood pressure 153 mm[Hg] DO Arnie Ball Work Phone: [facility] 07-21-2022 10:13-0400 Diastolic blood pressure 64 mm[Hg] DO Arnie Ball Work Phone: [facility] 07-21-2022 10:13-0400 Heart rate 60 /min DO Arnie Ball Work Phone: [facility] 07-21-2022 10:13-0400 Respiratory rate 16 /min DO Arnie Ball Work Phone: [facility] 07-21-2022 10:130400 SaO2% (BldA) [Mass fraction] 95 % DO Arnie Ball Work Phone: [facility] 07-21-2022 10:13-0400 Systolic blood pressure 135 mm[Hg] DO Arnie Ball Work Phone: [facility] 07-21-2022 08:10-0400 Body height 180.34 cm DO Arnie Ball Work Phone: [facility] 07-21-2022 08:10-0400 Body temperature 98.2 [degF] DO Arnie Ball Work Phone: [facility] 07-21-2022 08:10-0400 Body weight 90.71 kg DO Arnie Ball Work Phone: [facility] 06-17-2022 10:25-0400 Body temperature 98.2 [degF] DO Arnie Ball Work Phone: [facility] 06-17-2022 10:25-0400 Diastolic blood pressure 58 mm[Hg] DO Arnie Ball Work Phone: [facility] 06-17-2022 10:25-0400 Heart rate 62 /min DO Arnie Ball Work Phone: [facility] 06-17-2022 10:25-0400 Respiratory rate 18 /min DO Arnie Ball Work Phone: [facility] 06-17-2022 10:25-0400 SaO2% (BldA) [Mass fraction] 98 % DO Arnie Ball Work Phone: [facility] 06-17-2022 10:25-0400 Systolic blood pressure 124 mm[Hg] DO Arnie Ball Work Phone: [facility] 06-03-2022 09:55-0400 Body height 180.34 cm DO Arnie Ball Work Phone: [facility] 06-03-2022 09:55-0400 Body weight 92.85 kg DO Arnie Linda Work Phone: [facility] Encounters Encounter Date Encounter Type Care Provider Facility Start: 09-10-2024 End: 09-10-2024 ambulatory [facility] Start: 09-02-2024 ambulatory [facility] Start: 08-22-2024 End: 08-22-2024 ambulatory Ramesh Howell Tarah Facility:[facility] Start: 08-21-2024 End: 08-21-2024 Bamboo flowsheet Marilin Jay Jay Lashae CCC-A Work Phone: [facility] Start: 08-21-2024 End: 08-21-2024 Bamboo flowsheet Marilin Jay Jay Lashae CCC-A Work Phone: [facility] Start: 08-21-2024 End: 08-21-2024 Clinical Support Marilin Clay CCC-A Work Phone: [facility] Comment on above: Bilateral impacted c erumen (Primary Dx) Start: 08-08-2024 End: 08-08-2024 Office outpatient visit 25 minutes Avery Syed MD Work Phone: [facility] Comment on above: Stage 4 chronic kidn ey disease (CMS-HCC) (Primary Dx) Start: 08-01-2024 ambulatory [facility] Start: 07-30-2024 ambulatory [facility] Start: 07-24-2024 End: 07-24-2024 ambulatory ENRRIQUE MCKEON [facility] Start: 07-22-2024 ambulatory [facility] Start: 07-17-2024 ambulatory [facility] Start: 07-09-2024 End: 07-09-2024 ambulatory RANDALL TELLO Not Available Start: 06-26-2024 ambulatory [facility] Start: 2024 ambulatory GREG ALEJANDRE [facility] Start: 04-22-2024 End: 04-22-2024 ambulatory DO Arnie Linda Work Phone: [facility] Work Phone: Start: 04-22-2024 End: 04-22-2024 Patient encounter procedure DO Arnie Linda Work Phone: [facility] Physician [facility] Work Phone: Start: 04-11-2024 ambulatory [facility] Start: 04-11-2024 Encounter for preprocedural cardiovascular examination [facility] Start: 04-09-2024 ambulatory [facility] Start: 04-02-2024 ambulatory [facility] Start: 03-29-2024 End: 03-29-2024 ambulatory [facility] Start: 03-05-2024 End: 03-05-2024 ambulatory [facility] Start: 03-01-2024 End: 03-01-2024 ambulatory DO Arnie Linda Work Phone: [facility] Work Phone: Start: 03-01-2024 End: 03-01-2024 Patient encounter procedure DO Arnie Linda Work Phone: [facility] Work Phone: Start: 03-01-2024 Registered Recurring DO Benjam in Ball Work Phone: [facility] Work Phone: Start: 02-21-2024 End: 02-21-2024 ambulatory RANDALL TELLO Not Available Start: 02-01-2024 Non-patient / Non-visit DO Aguilar Linda Work Phone: [facility] Physician [facility] Work Phone: Start: 12-19-2023 Non-patient / Non-visit DO Aguilar Linda Work Phone: [facility] Work Phone: Start: 12-18-2023 End: 12-18-2023 ambulatory Arnie Linda Other [address] Other Start: 12-18-2023 Telephone encounter Arnie Linda [facility] Start: 12-18-2023 End: 12-18-2023 Patient encounter procedure DO Arnie Linda Work Phone: [facility] Work Phone: Start: 09-29-2023 End: 09-29-2023 ambulatory Arnie Linda Other [facility] [employer] Other Start: 09-29-2023 Telephone encounter Arnie Linda [facility] Start: 09-22-2023 End: 09-22-2023 ambulatory [facility] Start: 09-01-2023 End: 09-01-2023 Registered Recurring DO Arnie Linda Work Phone: [facility] Work Phone: Start: 09-01-2023 End: 09-01-2023 ambulatory DO Arnie Linda Work Phone: [facility] Work Phone: Start: 08-27-2023 End: 08-27-2023 ambulatory Arnie Linda Other [facility] [employer] Other Start: 08-27-2023 Telephone encounter Arnie Linda [facility] Start: 08-22-2023 End: 08-22-2023 ambulatory Arnie Linda Other [address] Other Start: 08-22-2023 Office outpatient vi sit 25 minutes Arnie Linda [facility] Start: 07-03-2023 End: 07-03-2023 ambulatory Arnie Ball Other [address] Other Start: 07-03-2023 Telephone encounter Arnie Linda [facility] Start: 07-01-2023 End: 07-01-2023 ambulatory Arnie Linda Other [address] Other Start: 07-01-2023 Telephone encounter Arnie Linda [facility] Start: 06-22-2023 End: 06-22-2023 ambulatory Arnie Linda Other [address] Other Start: 06-22-2023 Telephone encounter Arnie Linda [facility] Start: 06-12-2023 End: 06-12-2023 ambulatory Arnie Linda Other [address] Other Start: 06-12-2023 Telephone encounter Arnie Linda [facility] Start: 04-26-2023 End: 04-26-2023 ambulatory Arnie Linda Other [address] Other Start: 04-26-2023 Telephone encounter Arnie Linda [facility] Start: 04-20-2023 End: 04-20-2023 ambulatory Arnie Linda Other [address] Other Start: 04-20-2023 Office outpatient vi sit 25 minutes Arnie Linda [facility] Start: 03-14-2023 End: 03-14-2023 ambulatory Arnie Linda Other [address] Other Start: 03-14-2023 Telephone encounter Arnie Linda [facility] Start: 02-28-2023 End: 03-01-[address] DOCTOR EDWARDS Facility:[facility] Start: 02-15-2023 Telephone encounter Arnie Linda [facility] Start: 02-15-2023 End: 02-16-[address] DOCTOR EDWARDS [address] Other Start: 02-14-2023 End: 02-14-2023 ambulatory Arnie Linda Other [address] Other Start: 02-14-2023 Telephone encounter Arnie Linda [facility] Start: 01-11-2023 End: 01-11-2023 ambulatory Arnie Linda Other [address] Other Start: 01-11-2023 Office outpatient vi sit 15 minutes Arnie Linda [facility] Start: 01-02-2023 End: 01-03-2023 ambulatory AVERY SYED MD Facility:[facility] Start: 12-15-2022 End: 12-15-2022 ambulatory Arnie Linda Other [address] Other Start: 12-15-2022 Patient encounter procedure Arnie Linda [facility] Start: 11-16-2022 End: 11-17-[address] ARNIE LINDA Facility:[facility] Start: 11-14-2022 End: 11-14-2022 ambulatory Arnie Linda Other [address] Other Start: 11-14-2022 Telephone encounter Arnie Linda [facility] Start: 10-03-2022 End: 10-04-[address] ARNIE LINDA Facility:[facility] Start: 09-22-2022 End: 09-23-[address] DOCTOR EDWARDS Facility:[facility] Start: 09-09-2022 End: 09-10-[address] DOCTOR EDWARDS Facility:[facility] Start: 09-02-2022 End: 09-02-2022 ambulatory DO Arnie Linda Work Phone: [facility] Work Phone: Start: 09-02-2022 End: 09-02-2022 Registered Recurring DO Arnie Linda Work Phone: [facility] Start: 08-30-2022 End: 08-31-[address] ARNIE LINDA Facility:[facility] Start: 07-21-2022 End: 07-21-2022 Admission to same day surgery center DO Arnie Linda Work Phone: [facility] Start: 07-21-2022 End: 07-21-2022 ambulatory DO Arnie Linda Work Phone: [facility] Work Phone: Start: 07-20-2022 End: 07-21-[address] ARNIE LINDA Facility:[facility] Start: 07-19-2022 End: 07-19-2022 ambulatory DO Arnie Maddi Work Phone: [facility] Work Phone: Start: 07-19-2022 End: 07-19-2022 Patient encounter procedure DO Arnie Maddi Work Phone: [facility] Start: 07-07-[address] DAWN ORTIZ Fac ility:[facility] Start: 06-21-2022 Adult health examination Gume Linda Other [facility] [employer] Other Start: 06-17-2022 Registered Recurring DO Jeremi in Ball Work Phone: [facility] Start: 06-03-2022 End: 06-03-2022 Registered Recurring DO Arnie Linda Work Phone: [facility] Start: 05-31-2022 End: 05-31-2022 Patient encounter procedure DO Arnie Linda Work Phone: [facility] [place] Start: 05-12-2022 End: 05-13-2022 ambulatory AVERY SYED MD Facility:[facility] Start: 05-10-2022 End: 05-11-2022 ambulatory FERMIN SANCHEZ Facility:[facility] Start: 04-26-2022 End: 04-27-[address] DOCTOR EDWARDS Facility:[facility] Start: 04-11-2022 End: 07-07-[address] ARNIE LINDA Facility:[facility] Start: 04-08-2022 End: 04-09-[address] ARNIE LINDA Facility:[facility] Start: 03-30-2022 End: 04-02-2022 Evaluation and management of inpatient GILMERShelly SALAZAR Facility:[facility] Start: 03-25-2022 End: 03-26-2022 ambulatory ENRRIQUE MCKEON Facility:[facility] Start: 03-11-2022 ambulatory ENRRIQUE MCKEON Facility :[facility] Start: 03-06-2022 End: 03-07-2022 Evaluation and management of inpatient DR RUPINDER GRIGSBY . Facility:[facility] Start: 03-04-2022 End: 03-05-[address] ARNIE LINDA Facility:[facility] Start: 08-17-2021 End: 08-17-2021 Pre-procedure evaluation check Arnie Maddi Other [address] Other Start: 08-15-2021 Bradycardia DO Arnie Quezada ll Work Phone: [facility] Procedures Date Procedure Procedure Detail Performing Clinician Start: 02-22-2024 CT of abdomen and pe lvis without contrast DO Arnie Linda Work Phone: Start: 02-22-2024 CT of chest without contrast DO Arnie Linda Work Phone: Start: 08-30-2023 CT of abdomen and pe lvis without contrast DO Arnie Linda Work Phone: Start: 08-30-2023 CT of chest without contrast DO Arnie Linda Work Phone: Start: 08-30-2023 Carcinoembryonic antigen cea Ramesh Rascon Comment on above: Result Comment: PERF ORMED BY: [facility] [address] [place] [address] PATHOLOGIST [employer]NER TRU UMANZOR M.D. Performed By: #### C EA, CBC, FE and TIBC, CMP, TONY ####[facility] [id number] [address] Start: 02-28-2023 CT of abdomen and pe lvis without contrast DO Arnie Linda Work Phone: Start: 02-28-2023 CT of chest without contrast DO Arnie Linda Work Phone: Start: 01-02-2023 PSA screening FERMIN B OES Comment on above: Performed By: #### F T4, PSASC #### [facility] [address] [place] [address] Dr. Benito Schwartz Start: 08-31-2022 CT of abdomen and pe lvis without contrast DO Arnie Ball Work Phone: Start: 08-31-2022 CT of chest without contrast DO Arnie Ball Work Phone: Start: 07-21-2022 Colonoscopy DO Bernardaami n Maddi Work Phone: Start: 05-31-2022 CT of abdomen and pe lvis without contrast DO Arnie Ball Work Phone: Start: 05-31-2022 CT of chest without contrast DO Arnie Ball Work Phone: Start: 02-22-2022 Computed tomography of abdomen and pelvis with contrast DO Arnie Ball Work Phone: Start: 02-22-2022 CT of thorax with contrast DO Arnie Linda Work Phone: Start: 05-19-2018 Laboratory test resu lt abnormal Arnie Linda Other Start: 04-25-2017 Screening for malign ant [...] Treatment Date Care Activity Detail Author Start: 02-07-2025 Adult BMI Screening Adult BMI Screen ing [employer] Start: 02-06-2025 End: 08-08-2025 Basic metabolic 2000 panel - Serum or Plasma Basic Metabolic Panel Lab Routine Stage 4 chronic kidney disease (CMS-HCC) Expected: 02/06/2025 (Approximate), Expires: 08/08/2025 [facility] Work Phone: Comment on above: Expected: 02/06/2025 (Approximate), Expires: 08/08/2025 Start: 02-06-2025 End: 08-08-2025 CBC panel - Blood by Automated count CBC without diff Lab Routine Stage 4 chronic kidney disease ([facility]) Expected: 02/06/2025 (Approximate), Expires: 08/08/2025 [facility] Comment on above: Expected: 02/06/2025 (Approximate), Expires: 08/08/2025 Start: 02-06-2025 End: 08-08-2025 Magnesium [Mass/volume] in Serum or Plasma Magnesium Lab Routine Stage 4 chronic kidney disease ([facility]) Expected: 02/06/2025 (Approximate), Expires: 08/08/2025 [facility] Comment on above: Expected: 02/06/2025 (Approximate), Expires: 08/08/2025 Start: 02-06-2025 End: 08-08-2025 Parathyroid Hormone, intact Parathyroid Hormone, intact Lab Routine Stage 4 chronic kidney disease ([facility]) Expected: 02/06/2025 (Approximate), Expires: 08/08/2025 [facility] Comment on above: Expected: 02/06/2025 (Approximate), Expires: 08/08/2025 Start: 02-06-2025 End: 08-08-2025 Phosphate [Mass/volume] in Serum or Plasma Phosphorus Lab Routine Stage 4 chronic kidney disease ([facility]) Expected: 02/06/2025 (Approximate), Expires: 08/08/2025 [facility] [employer] Comment on above: Expected: 02/06/2025 (Approximate), Expires: 08/08/2025 Start: 02-06-2025 End: 08-08-2025 Protein creat ratio Protein creat ratio Lab Routine Stage 4 chronic kidney disease [place] [place] Expected: 02/06/2025 (Approximate), Expires: 08/08/2025 [facility] Comment on above: Expected: 02/06/2025 (Approximate), Expires: 08/08/2025 Start: 12-04-2024 End: 12-04-2024 Clinical Support 12/04/2024 1:00 PM EST Clinical Support [facility] [address] [place] [address] Marilin Clay, [facility] [address] [place] [address] [facility] Start: 08-21-2024 End: 08-21-2024 Clinical Support 08/21/2024 1:00 PM EST Clinical Support [facility] [address] [place] [id number] Marilin Clay Jay Jay, [facility] [address] [place] [address] Arrived [facility] Comment on above: Arrived Start: 08-15-2024 End: 08-08-2025 Protein creat ratio Protein creat ratio Lab Routine Stage 4 chronic kidney disease ([facility]) Expected: 08/15/2024 (Approximate), Expires: 08/08/2025 [facility] Comment on above: Expected: 08/15/2024 (Approximate), Expires: 08/08/2025 Start: 06-16-2024 Influenza vaccination Influenza Vacc ine (#1) [facility] Start: 07-21-2022 [facility] Start: 06-17-2022 Registered Recurring Colon cancer [facility] Start: 06-17-2022 [facility] Start: 06-10-2022 [facility] Start: 02-22-2022 CT abdomen pelvis w con CT abd omen pelvis w con [facility] Start: 02-22-2022 CT chest w con CT chest w con [facility] Start: 2007 Fall Risk Screening Fall Risk Screen ing [facility] Start: 1992 Administration of varicella zoster vaccine Zoster (Shingles) Vaccine (1 of 2) [facility] Start: 1961 DTaP,Tdap and Td Vac cines (1 - Tdap) DTaP,Tdap and Td Vaccines (1 - Tdap) [facility] Start: 1954 Depression Screening Depression Scre ening [facility] Start: 1954 Tobacco Screening Tobacco Screening [facility] Start: 1942 Medicare Annual Well ness Visit Medicare Annual Wellness Visit [facility] Carcinoembryonic Ag [Mass/volume] in Serum or Plasma [facility] Work Phone: Carcinoembryonic Ag [Mass/volume] in Serum or Plasma [facility] Carcinoembryonic Ag [Mass/volume] in Serum or Plasma [facility] Comprehensive metabo lic 1999 panel - Serum or Plasma [facility] Work Phone: Comprehensive metabo lic 1999 panel - Serum or Plasma [facility] Comprehensive metabo lic 1999 panel - Serum or Plasma [facility] Comprehensive metabo lic 1999 panel - Serum or Plasma [facility] Comprehensive metabo lic 1999 panel - Serum or Plasma [facility] Comprehensive metabo lic 1999 panel - Serum or Plasma [facility] CT Abdomen and Pelvi s W contrast IV [facility] Work Phone: CT Abdomen and Pelvi s W contrast IV [facility] CT Abdomen and Pelvi s W contrast IV [facility] CT Abdomen and Pelvi s W contrast IV [facility] CT Abdomen and Pelvi s WO contrast [facility] Work Phone: CT Abdomen and Pelvi s WO contrast [facility] CT Abdomen and Pelvi s WO contrast [facility] CT Chest W contrast IV [facility] Work Phone: CT Chest W contrast IV [facility] CT Chest W contrast IV [facility] CT Chest W contrast IV [facility] CT Chest WO contrast [facility] Work Phone: CT Chest WO contrast [facility] Chest WO contrast [facility] Erythropoietin (EPO) [Units/volume] in Serum or Plasma [facility] Ferritin [Mass/volum e] in Serum or Plasma [facility] Patient Education Hemorrhoids [place] Polyps [facility] Work Phone: End: 08-08-2025 Urinalysis Urinalysis Lab Routine Stage 4 chronic kidney disease (CMS-HCC) 1 Occurrences starting 08/08/2024 until 08/08/2025 [facility] Comment on above: 1 Occurrences starti ng 08/08/2024 until 08/08/2025 [facility] Immunizations Immunization Date Immunization Notes Care Provider Law griggs 07-15-2024 influenza virus vaccine, unspecified formulation Marilin Sagastumeill [facility] Work Phone: [facility] 07-10-2022 COVID-19 Pfizer (bivalent) Arnie Linda Other [facility] 07-10-2022 COVID-19 Pfizer (Pediatric) Arnie Linda Other [facility] 07-04-2022 influenza virus vaccine, split virus (incl. purified surface antigen) Arnie Linda Other [employer] [place] [facility] [employer] Other 07-04-2022 influenza virus vaccine, unspecified formulation DO Arnie Linda Work Phone: [facility] 07-04-2022 influenza, high dose seasonal, preservative-free Arnie Linda Other [employer] [place] [facility] [employer] Other 02-07-2022 COVID-19 Pfizer Arnie pedroza Other [facility] 02-07-2022 COVID-19 Vaccine Pfi zer - Documentation Purposes Only Arnie Linda Other [facility] 07-28-2021 influenza virus vaccine, split virus (incl. purified surface antigen) Arnie Linda Other [place] [place] [facility] [employer] Other 07-28-2021 influenza virus vaccine, unspecified formulation DO Arnie Linda Work Phone: [facility] 07-15-2021 COVID-19 mRNA, Comirnaty (Pfizer) DO Arnie Linda Work Phone: [facility] 12-03-2020 COVID-19 mRNA, Comirnaty (Pfizer) DO [employer] Work Phone: [facility] 11-12-2020 COVID-19 mRNA, Comirnaty (Pfizer) DO [employer] Work Phone: [facility] 06-30-2020 influenza virus vaccine, split virus (incl. purified surface antigen) [employer] Other [facility] [employer] Other 06-30-2020 influenza virus vaccine, unspecified formulation DO [employer] Work Phone: [facility] 07-19-2019 influenza virus vaccine, split virus (incl. purified surface antigen) [employer] Other [facility] [employer] Other 07-19-2019 influenza virus vaccine, unspecified formulation DO [employer] Phone: [facility] 07-17-2018 influenza virus vaccine, split virus (incl. purified surface antigen) [employer] Other [facility] [employer] Other 07-17-2018 influenza virus vaccine, unspecified formulation DO [employer] Phone: [facility] 12-25-2017 diphtheria, tetanus toxoids and acellular pertussis vaccine, unspecified formulation [employer] Other [facility] 07-24-2017 influenza virus vaccine, split virus (incl. purified surface antigen) [employer] Other [facility] [employer] Other 07-24-2017 influenza virus vaccine, unspecified formulation DO [employer] Phone: [facility] 07-12-2016 influenza virus vaccine, split virus (incl. purified surface antigen) [employer] Other [place] [employer] Other 07-12-2016 influenza virus vaccine, unspecified formulation DO [employer] Phone: [facility] 05-26-2016 pneumococcal Conjuga te, unspecified formulation; Translations: [Need for prophylactic vaccination against Streptococcus pneumoniae (pneumococcus)] Arnie Linda Other [facility] [employer] Other 05-26-2016 pneumococcal conjuga te vaccine, 13 valent Arnie Linda Other [facility] 07-08-2015 influenza virus vaccine, split virus (incl. purified surface antigen) Arnie Linda Other [facility] [employer] Other 07-08-2015 influenza virus vaccine, unspecified formulation DO Arnie Linda Work Phone: [facility] 08-02-2013 tetanus and diphther ia toxoids, adsorbed, preservative free, for adult use (5 Lf of tetanus toxoid and 2 Lf of diphtheria toxoid) Arnie Linda Other [facility] 08-02-2013 pneumococcal polysaccharide vaccine, 23 valent Arnie Linda Other [facility] 07-16-2013 pneumococcal conjuga te vaccine, 13 valent Marilin Clay [facility] Work Phone: [facility] 06-27-2012 tetanus and diphther ia toxoids, adsorbed, preservative free, for adult use (5 Lf of tetanus toxoid and 2 Lf of diphtheria toxoid) Arnie Linda Other [facility] Payers Date Payer Category Payer Private Health Insurance [employer] [id number] 2021 Managed Care Other (unspecified) [facility] [id number] 2007 Medicare [id number] 1959 Medicare [id number] 1959 Self-pay [id number] 1959 Unknown [id number] 1942 Unknown [id number] 2.16.840.1.474438.3.579.2 .647 1942 Unknown [id number] 2.16.840.1.940823.3.579.2 .593 1942 Unknown [id number] 2.16.840.1.934344.3.579.2 .593 1942 Unknown [id number] 2.16.840.1.335620.3.579.2 .593 1942 Unknown [id number] 2.16.840.1.842479.3.579.2 .593 1942 Unknown [id number] 2.16.840.1.910890.3.579.2 .593 1942 Unknown [id number] 2.16.840.1.297536.3.579.2 .593 1942 Unknown [id number] 2.16.840.1.684541.3.579.2 .593 1942 Unknown [id number] 2.16.840.1.507416.3.579.2 .593 1942 Unknown [id number] 2.16.840.1.463554.3.579.2 .593 1942 Unknown [id number] 2.16.840.1.045492.3.579.2 .593 1942 Unknown [id number] 2.16.840.1.977306.3.579.2 .593 1942 Unknown [id number] 2.16.840.1.355895.3.579.2 .593 1942 Unknown [id number] 2.16.840.1.657001.3.579.2 .593 1942 Unknown [id number] 2.16.840.1.762468.3.579.2 .593 1942 Unknown [id number] 2.16.840.1.967815.3.579.2 .593 1942 Unknown [id number] 2.16.840.1.834429.3.579.2 .593 1942 Unknown [id number] 2.16.840.1.411379.3.579.2 .593 1942 Unknown [id number] 2.16.840.1.437240.3.579.2 .593 1942 Unknown [id number] 2.16.840.1.590930.3.579.2 .593 1942 Unknown [id number] 2.16.840.1.366631.3.579.2 .593 1942 Unknown [id number] 2.16.840.1.782622.3.579.2 .593 1942 Unknown [id number] 2.16.840.1.362111.3.579.2 .1259 1942 Unknown [id number] 2.16.840.1.927560.3.579.2 .1259 1942 Unknown [id number] 2.16.840.1.123479.3.579.2 .1259 Unknown [id number] 2.16.840.1.564879.3.579.2 .593 Unknown [id number] 2.16.840.1.584500.3.579.2 .531 Unknown [id number] 2.16.840.1.328015.3.579.2 .531 Social History Date Type Detail Facility Start: 06-03-2022 End: 07-09-2024 Tobacco smoking status WAIS Ex-smoker (finding) [facility] Start: 1940 Sex Assigned At Male F [facility] Start: 07-09-2024 End: 08-08-2024 Sex Assigned At [facility] Other History of tobacco use Current smoker [facility] Start: 06-01-2023 End: 07-09-2024 Tobacco use and exposure Smokeless tobacco non-user [facility] Start: 08-08-2024 Alcoholic beverage intake Ex-drinker (finding) [facility] Start: 07-09-2024 End: 08-08-2024 History of Social function [facility] Childcare Unknown [facility] Start: 1940 Sex assigned at Not on file P [facility] Start: 05-21-2015 Sex Male (finding) [facility] History of tobacco use Cigarette Smoker [facility] Start: 07-09-2024 Alcoholic beverage intake Current drinker of alcohol (finding) [facility] How many standard drinks containing alcohol do you have on a typical day? 1 or 2 [facility] How often do you hav e 6 or more drinks on 1 occasion? Never [facility] Start: 07-08-2024 Alcohol Comment caffeine: none [facility] Start: 08-18-2023 Gender identity Identifies as male gender (finding) [facility] Medical Equipment Procedure Code Equipment Code Equipment Origin al Text Equipment Identifier Dates Blood Sugar Diagnostic (Contour Next Test Strips) strip Start: 12-15-2023 Blood Sugar Diagnostic (Contour Next Test Strips) strip Start: 12-15-2023 Goals Date Patient Goal Desired Activity /State Clinical Notes 08-31-2021 to 09-10-2024 Marilin Clay CCC-A - 08/21/2024 1:00 PM Pietro Syed MD - 08/08/2024 10:30 AM EDT Note Date & Type Note Facility 09-10-2024 Note [facility] 09-10-2024 Note [facility] Electrophysiology Consult Note Reason for visit: Afib and dilated CMP. 09/10/24 Patient underwent DIRECTOR MONEY-D upgrade procedure on 06/12/2023. Subsequent echocardiogram in showed EF of 25 to 30%. EKG shows evidence of atrial flutter with ventricular paced activity as per that which was done on 07/24/2024 device check performed today. 04/04/23 Pt previously was taken off AC as per his request and was monitored with device check. When this picked up AF, he was started on DOAC. He has lowered dose to 2.5mg bid He has 100% RV pacing and has NYHA Class III symptoms. EKG: V pacing. Prior HPI: Nas Ren is a 84 y.o. year old with past medical history [...] infrahisian disease. He was brought back to [facility] on 02/12/2020 due to what was discussed [...] other systems reviewed and are negative. PMH: Past Medical History: Diagnosis Date Arrhythmia CHF (congestive heart failure) (CMS/HCC) Chronic kidney disease PSH: Past Surgical History: Procedure Laterality Date CARD (more content not included)... [facility] 08-21-2024 History of Present illness Narrative History: Pt here for hearing aid check and possible ear cleaning. Pt states he turns up the volume to the loudest setting when he wears the aids. Otoscopic Exam: Right Ear: Cerumen impaction Left Ear: Cerumen impaction Procedure: Cerumen impaction removed from each ear canal under direct otoscopy using suction and curette without incident. TM intact post cleaning. Hearing Aids: Cleaned receivers and replaced filters and domes. Listening check of aids good both aids. Read aids and increased overall gain. Pt indicated he was hearing well. Last audio was in 2022. Scheduled pt for audio + BURGESS check in 3 months. Will also clean pt's ears at that time if needed. documented in this encounter [facility] 08-12-2024 Note Pt is getting a colo noscopy in early August, is it alright to hold eliquis for two days prior to procedure? [facility] 08-08-2024 History of Present illness Narrative Images from the original note were not included. Date of Service: 08/08/24 PCP: ARNIE LINDA, DO History of Present Illness Nas Ren is a 84 y.o. male, who is following with us for for stage 4 chronic kidney disease returning for nephrologic follow-up When seen in January of 2024 the BUN was 55 creatinine 2.65 urine protein creatinine ratio was 0.32 gram/gram. Laboratories of August 01, 2024 show sodium 141 potassium 3.8 chloride 101 total CO2 32 BUN 56 creatinine 2.67 EGFR 23 mL/min calcium 9.2 phosphorus 4.1 magnesium 2.4 The urine protein creatinine ratio was 0.36 gram/gram the hemoglobin is 12.6 hematocrit 38.3 A urinalysis showed the absence of protein or blood on dipstick exam. Problem List Stage 4 chronic kidney disease : Previous nephrologic investigations included a renal ultrasound showing the right kidney measure 12 cm the left kidney 12.8 cm in bipolar dimension. A serum protein electrophoresis with immunofixation revealed no evidence of a monoclonal protein disorder. Hepatitis serologies for hepatitis B and C were negative. A 24 hr urine collection contained 3000 mg of protein. Bilateral duplex Doppler of the renal arteries was performed on January 09, 2018 and revealed no evidence of hemodynamically significant renal artery stenosis. There was 60% narrowing of the left renal artery. Urinalysis from March 2021 showed no blood with trace protein with a protein creatinine ratio that was undetectable. His chronic kidney disease of been attributed to nephrosclerosis renal vascular disease or diabetic nephropathy. Hypertension Type 2 diabetes mellitus. Dyslipidemia Morbid obesity History of pilonidal cyst resection 1969 Lower extremity edema Chronic obstructive pulmonary disease with Thirty-five pack year smoking history having quit smoking in 1981. Follows with Dr. Rodriguez Pulmonary medicine in [place] 60% Left renal artery stenosis noted in the past Decreased left ventricular function ejection fraction 30%. 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. His most recall his echo on 09/11/2023 showed an EF of 25-30%. He is no longer requiring a life vest. He is status post upgrade of permanent pacemaker to defibrillator an additional lead placement at the [facility] June 07, 2023. Grade 1 left ventricular diastolic dysfunction. Mild tricuspid regurgitation Mild mitral regurgitation Atrial flutter status post SUSAN cardioversion at [facility] in July of 2019.He did undergo an ablation after a hospital stay in October 2019. He is on anticoagulation with reduced dose Eliquis 2.5 mg p.o. b.I.d. 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 Adenocarcinoma the colon status post colectomy with reanastomosis in [place] August 2021. Being followed by Oncology with no plans for adjuvant chemotherapy. Hyperthyroidism Surgical, Family & Social History Surgical History: Past Surgical History: Procedure Laterality Date CARDIAC PACEMAKER PLACEMENT KNEE SURGERY Left PILONIDAL CYST DRAINAGE RIGHT COLECTOMY Social History: Social History Socioeconomic History Marital status: Spouse name: Not on file Number of children: Not on file Years of education: Not on file Highest education level: Not on file Occupational History Not on file Tobacco Use Smoking status: Former Smokeless tobacco: Never Substance and Sexual Activity Alcohol use: Not Currently Drug use: Never Sexual activity: Defer Other Topics Concern Not on file Social History Narrative Not on file Social Drivers of Health Financial Resource Strain: Not on file Food Insecurity: Not on file Transportation Needs: Not on file Physical Activity: Not on file Stress: Not on file Social Connections: Not on file Interpersonal Safety: Unknown (12/07/2023) Received from [facility] Safety & Environment Fear of Current or Ex-Partner: Not on file Emotionally Abused: Not on file Physically Abused: Not on file Sexually Abused: Not on file Physically or Sexually Abused: Not on file Housing Instability: Not on file Family History: Family History Problem Relation Age of Onset Diabetes Mother Hypertension Mother Diabetes Father Hypertension Father Allergies & Medications Allergies: Allergies Allergen Reactions Fwavdoq-Zau-Aib Reductase Inhibitors Current Meds: Current Outpatient Medications Medication Sig Dispense Refill allopurinoL (ZYLOPRIM) 100 mg tablet Take 1 tablet (100 mg total) by mouth in the morning. amLODIPine (NORVASC) 10 mg tablet Take 1 tablet (10 mg total) by mouth in the morning. apixaban (ELIQUIS) 5 mg tablet Take 1 tablet (5 mg total) by mouth in the morning and 1 tablet (5 mg total) before bedtime. cholecalciferol, vitamin D3, 5,000 units tablet Take 1 tablet (5,000 Units total) by mouth in the morning. furosemide (LASIX) 80 mg tablet Take 1 tablet (80 mg total) by mouth daily. 90 tablet 3 hydrALAZINE (APRESOLINE) 100 mg tablet Take 1 tablet (100 mg total) by mouth 3 (three) times a day. isosorbide dinitrate (ISORDIL) 10 mg tablet Take 1 tablet (10 mg total) by mouth 3 (three) times a day with meals. methIMAzole (TAPAZOLE) 10 mg tablet Take 0.5 tablets (5 mg total) by mouth every other day. metoprolol succinate XL (TOPROL-XL) 50 mg 24 hr tablet Take 2 tablets (100 mg total) by mouth in the morning. niacin (VITAMIN B3) 500 mg tablet Take 1 tablet (500 mg total) by mouth daily with breakfast. potassium chloride (K-TAB,KLOR-CON) 10 MEQ CR tablet Take 1 tablet (10 mEq total) by mouth in the morning. TRELEGY ELLIPTA 200-62.5-25 mcg blister with device Inhale 1 puff in the morning. losartan (COZAAR) 25 mg tablet Take 1 tablet (25 mg total) by mouth in the morning. 90 tablet 3 No current facility-administered medications for this visit. Review of Systems Review of Systems Constitutional: Negative for chills, diaphoresis, fatigue and fever. HENT: Negative for congestion, ear discharge, ear pain, facial swelling and hearing loss. Eyes: Negative for pain, discharge, redness and itching. Respiratory: Negative for cough, shortness of breath and wheezing. Cardiovascular: Negative for chest pain and palpitations. Gastrointestinal: Negative for abdominal pain, constipation, diarrhea, nausea and vomiting. Endocrine: Negative for polydipsia, polyphagia and polyuria. Genitourinary: Negative for decreased urine volume, difficulty urinating, dysuria, enuresis, flank pain, frequency, hematuria and urgency. Musculoskeletal: Negative for arthralgias, joint swelling and myalgias. Skin: Negative for rash and wound. Neurological: Negative for dizziness, tremors, weakness, light-headedness and numbness. Hematological: Negative for adenopathy. Physical Exam Vital Signs: Vitals: 08/08/24 1025 08/08/24 1027 BP: 148/78 150/80 BP Site: Left Arm Left Arm BP Postition: Sitting Standing BP CUFF SIZE: M (9-13 inches) M (9-13 inches) Pulse: 70 72 Weight: 99.2 kg (218 lb 12.8 oz) Height: 180.3 cm (5' 11 ) BMI: Body mass index is 30.52 kg/m . General appearance: alert in no apparent distress. Psychiatric: Oriented to place, time and person HEENT: atraumatic, supple, moist oral mucosa, no JVD Cardiovascular: normal S1-S2 Respiratory: No respiratory distress with no use of accessory muscles. Clear to auscultation bilaterally with no wheezes or crackles Abdomen: soft, no tenderness, no guarding, positive bowel sounds and no hepato or splenomegaly Vascular: adequate pulses and no carotid bruits. Musculoskeletal: no joint swelling or tenderness. Neurologic: No focal deficit in upper or lower extremities Lymphatic: no cervical or axillary lymphadenopathy. Edema: Laboratory Studies Chemistry: No results found for: SODIUM , K , CL , CO2 , ANIONGAP , BUN , CREATININE , EGFR , CALCIUM , MG , PHOSPHORUS , IONIZEDCALC No results found for: TOTALPROTEI , ALBUMIN , AST , ALT , BILIRUBIN , ALKPHOS Hematology: No results found for: WBC , HGB , HCT , PLT Anemia Studies: No results found for: IRONSAT , FERRITIN , [id number] , FOLATE Mineral and Bone Labs: No results found for: CALCIUM , PHOSPHORUS , VITD25 , PTH Urine Studies: Immunology Profile Imaging Echocardiogram: No results found. IMPRESSION Stage 4 chronic kidney disease: Nas's renal chemistries are stable. I would like him to be on an angiotensin receptor guanako for renal protection and protein sparing. PLAN 1. Initiate losartan 25 mg p.o. daily 2. Target systolic blood pressure to 130 mm of mercury or less. 3. Avoid prolonged use of nonsteroidal anti-inflammatory drugs or proton pump inhibitors. 4. Return to this office in 6 months time for repeat evaluation a CKD panel will be obtained then. Thank you ARNIE LINDA DO for the opportunity to participate in the care of your patients! Please contact me at [phone] (Office) or [phone] (Answering service) with any questions. AVERY SYED MD [facility] This note was created with the assistance of a speech-recognition program. Although the intention is to generate a document that actually reflects the content of the visit, no guarantees can be provided that every mistake has been identified and corrected by editing. AVERY SYED MD,PhD FACP [facility] ANY QUESTIONS FEEL FREE TO CALL: 1. OFFICE [phone] 2. ANSWERING SERVICE: [phone] documented in this encounter [facility] 07-24-2024 Note Cardiovascular Medic [facility] SUBJECTIVE Chief Complaint Patient presents with Atrial Fibrillation Coronary Artery Disease Nas Ren is a 84 y.o. male here for follow-up. HPI PMHx: chronic systolic heart failure, persistent afib, CAD, hypertension, and dilated cardiomyopathy s/p ICD He was in the ER last week for c/o low BP and dizziness. He went to [facility] and they told him he was in aflutter. He has hx of persistent a.fib. He has felt better since his ER visit. Denies c/o CP, dyspnea, orthopnea, PND, LE edema, dizziness/LH, palpitations, syncope. ------- Last HPI per Dr. Ortiz: He is a 83-year-old man with prior [...] blood pressure and heart rate are well-controlled. Patient Active Problem List Diagnosis Stage 3 chronic kidney disease ([facility]) Bacteremia Chronic systolic heart failure ([facility]) Dyslipidemia Edema of lower extremity Hyperlipidemia Hypertensive disorder Left ventricular systolic dysfunction Osteomyelitis of vertebra (CMS/HCC) Paroxysmal atrial flutter ([facility]/HCC) Proteinuria Type 2 diabetes mellitus ([facility]) COPD (chronic obstructive pulmonary disease) ([facility]) Dilated cardiomyopathy ([facility]) Statin intolerance Stage 4 chronic kidney disease (CMS/HCC) Chronic bronchitis, simple (CMS/HCC) Chronic venous insufficiency Constipation Hyperlipidemia type II Hypothyroidism due to medication Impaired mobility and activities of daily living Iron deficiency anemia Colon cancer (CMS/HCC) Mucopurulent chronic bronchitis (CMS/HCC) Obstructive sleep apnea Pacemaker A-fib (CMS/HCC) Psoas abscess, right (CMS/HCC) Pulmonary hypertension (CMS/HCC) Thyrotoxicosis Type 2 diabetes mellitus with hyperglycemia (CMS/HCC) Past Medical History: Diagnosis Date Arrhythmia CHF (congestive heart failure) (CMS/HCC) Chronic kidney disease Family History Problem Relation Name Age of Onset Diabetes Mother Heart disease Father Glaucoma Brother Diabetes Maternal Grandmother Clotting disorder Other Social History Tobacco Use Smoking status: Former Types: Cigarettes Quit date: 1981 Years since quittin.8 Smokeless tobacco: Never Substance Use Topics Alcohol use: Yes Comment: OCCASIONAL Drug use: Never Allergies Allergen Reactions Xzvathf-Ajs-Moh Reductase Inhibitors Tramadol ROS Cardiovascular: Positive for leg swelling. Hematologic/Lymphatic: Bruises/bleeds easily. All other systems reviewed and are negative. OBJECTIVE Visit Vitals BP 143/80 Pulse 69 Ht 1.803 m (5' 11 ) Wt 98 kg (216 lb) SpO2 91% BMI 30.13 kg/m??? Smoking Status Former BSA 2.22 m??? Medications: Current Outpatient Medications: allopurinol (Zyloprim) 100 mg tablet, Take 1 tablet by mouth in the morning., Disp: , Rfl: amLODIPine (Norvasc) 10 mg tablet, TAKE 1 TABLET BY MOUTH DAILY, Disp: 90 tablet, Rfl: 3 apixaban (Eliquis) 2.5 mg tablet, Take 1 tablet (2.5 mg) by mouth in the morning and at bedtime., Disp: 180 tablet, Rfl: 3 cholecalciferol, vitamin D3, 100 mcg (4,000 unit) capsule, Take 1 capsule every day by oral route., Disp: , Rfl: ezetimibe (Zetia) 10 mg tablet, TAKE 1 TABLET BY MOUTH AT BEDTIME, Disp: 90 tablet, Rfl: 3 furosemide (Lasix) 80 mg tablet, Take 80 mg by mouth in the morning., Disp: , Rfl: hydrALAZINE (Apresoline) 100 mg tablet, TAKE 1 TABLET BY MOUTH IN THE MORNING, AFTERNOON, AND AT BEDTIME., Disp: 270 tablet, Rfl: 3 isosorbide dinitrate (Isordil) 10 mg tablet, TAKE 1 TABLET BY MOUTH 3 TIMES DAILY, Disp: 270 tablet, Rfl: 3 methIMAzole (Tapazole) 5 mg tablet, Take 5 mg by mouth every other day., Disp: , Rfl: metoprolol succinate XL (Toprol-XL) 100 mg 24 hr tablet, Take 1 tablet (100 mg) by mouth once daily as directed. Do not crush or chew., Disp: 90 tablet, Rfl: 3 niacin 500 mg tablet, (more content not included)... [facility] 07-24-2024 Note Pt is here for a fol low up from [facility] ER. Pt denies sob, chest pain, and palpatations. Review of Systems Cardiovascular: Positive for leg swelling. Hematologic/Lymphatic: Bruises/bleeds easily. All other systems reviewed and are negative. [facility] 03-29-2024 Note [place] [facility] - [facility] Subjective Nas Ren is a 83 y.o. year old male patient being seen for 6 mo follow up chronic systolic heart failure, persistent afib, CAD, hypertension, and dilated cardiomyopathy s/p ICD. His device was interrogated last month, and he had lipid profile in December 2023. His dressmaker or tailor switched him from Bumex to Lasix due to insurance coverage. He feels good, as he denies chest pain, SOB, palpitations, lightheadedness/syncope, and bleeding on Eliquis. Patient Active Problem List Diagnosis Stage 3 chronic kidney disease ([facility]/HCC) Bacteremia Chronic systolic heart failure ([facility]/HCC) Dyslipidemia Edema of lower extremity Hyperlipidemia Hypertensive disorder Left ventricular systolic dysfunction Osteomyelitis of vertebra ([facility]/HCC) Paroxysmal atrial flutter (CMS/HCC) Proteinuria Type 2 diabetes mellitus ([facility]/HCC) COPD (chronic obstructive pulmonary disease) (CMS/HCC) Dilated cardiomyopathy (CMS/HCC) Statin intolerance Stage 4 chronic kidney disease (CMS/HCC) Chronic bronchitis, simple (CMS/HCC) Chronic venous insufficiency Constipation Hyperlipidemia type II Hypothyroidism due to medication Impaired mobility and activities of daily living Iron deficiency anemia Colon cancer (CMS/HCC) Mucopurulent chronic bronchitis (CMS/HCC) Obstructive sleep apnea Pacemaker A-fib ([facility]/HCC) Psoas abscess, right (CMS/HCC) Pulmonary hypertension (CMS/HCC) Thyrotoxicosis Type 2 diabetes mellitus with hyperglycemia ([facility]) Family History Problem Relation Name Age of [...] Judgment: Judgment normal. Allergies Allergies Allergen Reactions Bwnjdqv-Jou-Zxg Reductase Inhibitors Tramadol Medications Current Outpatient Medicat (more content not included)... [facility] 12-18-2023 Evaluation note Encounter Date Diagnosis Assessment Notes Dec, Thyrotoxicosis (ICD-10 - E05.90) Dec, Hypothyroidism due to medication (ICD-10 - E03.2) IP Street Other [id number] NoteUT Cardiology - [facility] Subjective Nas Ren is a 83 [...] Judgment: Judgment normal. Allergies Allergies Allergen Reactions Nelkbjb-Kkt-Gym Reductase Inhibitors Tramadol Medications Current Outpatient Medications: [...] in the morning., Di (more content not included)...[facility]11-12-2023 Evaluation note* Encounter Date Diagnosis Assessment Notes Treatment Notes Treatment Clinical Notes Aug, Hyperuricemia (ICD-1 0 - E79.0) IP [facility] Other 11-07-2023 Evaluation note* Encounter Date Diagnosis [...] are maintaining regular scheduled appts with their tobacco sample puller. No bleeding complications Aug, Mucopurulent chronic bronchitis [...] use, the patient reduces the risk for PA, CVA, HTN, cardiac dysrhythmias and sudden cardiac [...] the risk for cerebrovascular and cardiovascular disease. IP [facility] Other 09-07-2023 Evaluation note* Encounter Date Diagnosis Assessment Notes Treatment Notes Treatment Clinical Notes Jun, Hypothyroidism due t o medication (ICD-10 - E03.2) IP [facility] Other 07-06-2023 Evaluation note* Encounter Date Diagnosis [...] use, the patient reduces the risk for PA, CVA, HTN, cardiac dysrhythmias and sudden cardiac [...] are maintaining regular scheduled appts with their tobacco sample puller. No bleeding compliations Initiated on [employer] Other 05-30-2023 Evaluation note* Encounter Date Diagnosis Assessment Notes Treatment Notes Treatment Clinical Notes February, Hypothyroidism due t o medication (ICD-10 - E03.2) IP Street Other 05-19-2023 Progress note Author Leigha Nelson [facility] March 03, 2023 2:31pm Note Date/Time March 03, 2023 2:21p m [place] [address] Hem/Onc Follow Up Note - OP Signed Patient: Nas Ren MR#: [id number] : 1940 Acct:[id number] Age/Sex: 82 / M Type: REG RCR [...] for coordination of care (as documented) and oolk-zv-tcht counseling of patient and/or family. [facility] - Medical History Medical History: Medical [...] Calcium 8.8, Iron 56, TIBC 281, Iron Xwafclidnr13.9 L, Transferrin 201 L, Ferritin 236.7, Total [...] % (Auto) 68.3, Lymph % (Auto) 17.9, Merrick % (Auto) 9.6, Eos % (Auto) 3.6, Baso % (Auto) 0.6, Nucleat RBC Rel Count 0.3, Neut # (Auto) 6.6, Lymph # (Auto) 1.7, Merrick # (Auto) 0.9 H, Eos # (Auto) 0.3, Baso # (Auto) 0.1 - Home Medications and Allergies Allergies/Adverse Reactions: Allergies Ruqzcux-DLP-VzF Reductase Inhibitor [Avnjwcs-Sbc-Jtz Reductase Inhibitor] Allergy (Verified 03/03/23 13:45) Muscle [...] <Electronically signed by EDWARD Nelson> 03/03/23 1431 [facility] Work Phone: 1(419) 766-146205-02-2023 Evaluation note* Encounter Date Diagnosis Assessment Notes Treatment Notes Treatment Clinical Notes February, Thyrotoxicosis (ICD-10 - E05.90) IP Street Other 03-29-2023 Evaluation note* Encounter Date Diagnosis [...] cardiomyopathy (ICD-10 - I42.0) Continue healthy diet. IP Street Other 03-02-2023 Evaluation note* Encounter Date Diagnosis [...] use, the patient reduces the risk for PA, CVA, HTN, cardiac dysrhythmias and sudden cardiac [...] Z12.5) Dec, Cardiac pacemaker (ICD-10 - Z95.0) IP Street Other 01-30-2023 Evaluation note* Encounter Date Diagnosis Assessment Notes Treatment Notes Treatment Clinical Notes Oct, Other thyrotoxicosis without thyrotoxic crisis or storm (ICD-10 - E05.80) IP Street Other 11-18-2022 Progress note Author Chivo Keller [facility] September 02, 2022 2:38pm Note Date/Time September 02, 2022 2:33pm [facility] [place] [id number] Hem/Onc Follow Up Note - OP Signed Patient: Nas Ren MR#: [id number] : 1940 Acct:[id number] Age/Sex: 82 / M Type: REG RCR [...] for coordination of care (as documented) and dtnq-vq-tyao counseling of patient and/or family. [facility] - Medical History Medical History: Medical [...] % (Auto) 68.3, Lymph % (Auto) 18.5, Merrick % (Auto) 8.4, Eos % (Auto) 4.3, Baso % (Auto) 0.5, Neut # (Auto) 4.6, Lymph # (Auto) 1.2, Merrick # (Auto) 0.6, Eos # (Auto) 0.3, Baso # (Auto) 0.0, Nucleated RBC % (auto) 0.1 - Home Medications and Allergies Allergies/Adverse Reactions: Allergies Bsiiwqd-LSG-GeM Reductase Inhibitor [Pdpeecl-Cjq-Snh Reductase Inhibitor] Allergy (Verified 09/02/22 14:10) Muscle [...] by Chivo Keller II, DO> 09/02/22 1438 [facility] Work Phone: 1(362) 205-701610-06-2022 [facility] Progress note Author Leigha Nelson [facility] June 03, 2022 10:35am Note Date/Time June 03, 2022 10 :10am [facility] at [address] [address] Hem/Onc Follow Up Note - OP Signed Patient: Nas Ren MR#: [id number] : 1940 Acct:[id number] Age/Sex: 82 / M Type: REG RCR Copies to: MD Arnie Lui,DO Chivo Keller, II, DO~ Date of Service: 06/03/2022 Time [...] for coordination of care (as documented) and wvvs-xa-rddv counseling of patient and/or family. [facility] - Medical History Medical History: Medical [...] % (Auto) 69.9, Lymph % (Auto) 17.2, Merrick % (Auto) 8.0, Eos % (Auto) 4.1, Baso % (Auto) 0.8, Neut # (Auto) 6.2, Lymph # (Auto) 1.5, Merrick # (Auto) 0.7, Eos # (Auto) 0.4, Baso # (Auto) 0.1, Nucleated RBC % (auto) 0.0 - Home Medications and Allergies Allergies/Adverse Reactions: Allergies Kflalbo-QBM-GvD Reductase Inhibitor [Jaruzct-For-Pjt Reductase Inhibitor] Allergy (Verified 06/03/22 09:55) Muscle [...] by EDWARD Nelson> 06/03/22 1035 [facility] Work Phone: 1(156) 448-947706-18-2022 NoteMR#: [id number] I [facility] Pt. Name: Nas Ren Admitted: 03/30/2022 Discharged: 04/02/2022 Date of : 1940 Physician: Gilmer Salazar MD DISCHARGE SUMMARY CONSULTING SERVICES: 1. Nephrology Service. 2. Endocrinology service. 3. Cardiology service. PRINCIPAL DIAGNOSES: 1. Oqadt-fe-rbhydto heart failure, reduced ejection fraction of 35%. 2. Acute kidney injury on chronic kidney disease, stage 4, resolved. 3. Dyspnea, on exertion. 4. Essential hypertension. 5. History of coronary artery disease. 6. Iodine-induced hyperthyroidism, uncontrolled. 7. Eyi-jlyjbgk-tuugdioan diabetes mellitus, diet controlled, A1c 6.4. 8. [...] is a 81-year-old male who presented to [facility] with chief complaint of dyspnea [...] overload occurs, he is to call his tobacco sample puller and/or PCP. The patient also require repeat [...] Adler PA-C Date Trans: 04/02/2022 02:36 P/racho [id number] cc: Arnie Linda D.O. [address] [place] [address] A [facility] [address] [facility]05-21-2022 NotePROCEDURE: XR CHEST 1 V REASON [...] Electronically authenticated by: NICK OLMEDO Date: 2022-03-05 21:29[facility]05-15-2022 Progress note Author Chivo Keller [facility] February 27, 2022 12:52pm Note Date/Time February 25, 2022 12:11 pm [facility] [place] [id number] Hem/Onc Follow Up Note - OP Signed Patient: Nas Ren MR#: [id number] : 1940 Acct:[id number] Age/Sex: 81 / M Type: REG RCR [...] for coordination of care (as documented) and qiyh-pk-fzyc counseling of patient and/or family. [facility] - Medical History Medical History: Medical [...] % (Auto) 65.1, Lymph % (Auto) 19.2, Merrick % (Auto) 13.3, Eos % (Auto) 1.8, Baso % (Auto) 0.6, Neut # (Auto) 4.2, Lymph # (Auto) 1.2, Merrick # (Auto) 0.9H, Eos # (Auto) 0.1, [...] Home Medications and Allergies Allergies/Adverse Reactions: Allergies Neusfkj-TKU-ReY Reductase Inhibitor [Ogyknzm-Pnw-Jdy Reductase Inhibitor] Allergy (Verified 02/25/22 11:39) Muscle [...] by Chivo Keller II, DO> 02/27/22 1252 [facility] Work Phone: 1(455) 694-361011-16-2021 Consult note Author Nikunj Shultz [facility] August 31, 2021 9:50am Note Date/Time August 31, 2021 9:33am [facility] at [address] [address] Hem/Onc Consult Note - OP Signed Patient: Nas Ren MR#: [id number] : 1940 Acct:[id number] Age/Sex: 81 / M Type: REG RCR Copies to: MD Arnie Lui,~ HPI Date/Time of Service: Date of Service: [...] 2021. He has recovered well from surgery. [facility] - Medical History Medical History: Medical [...] Type: None Home Medications & Allergies Allergies Goctyop-HGS-GkK Reductase Inhibitor [Cmdbxdj-Acq-Utc Reductase Inhibitor] Allergy (Verified 08/31/21 08:57) Muscle [...] or Bravo syndrome. I will discuss with [facility] genetics and refer the patient for genetic testing. - Time with Patient Coordination of Care & Counseling Time: Greater than 50% of time spent with patient was for coordination of care (as documented) and apre-om-dyuw counseling of patient and/or family. Dictated By: Nikunj Shultz MD DD/ 0932 Signed By: <Electronically signed by MD Nikunj Shultz> 08/31/21 0950 [facility] Work Phone: Evaluation note* Diagnosis Onset Date Resolution Status Colon cancer acute [facility] Work Phone: evaluation noteNo [employer] Other Evaluation note* Diagnosis Onset Date Resolution [...] (prostate specific antigen) noneactive Colon cancer acute [facility] Work Phone: Evaluation note* Diagnosis Onset [...] Type 2 diabetes mellitus with hyperglycemia acute [facility] Work Phone: Evaluation note* Diagnosis Stage 4 chronic kidney disease (CMS-HCC)- Primary documented in this encounter [facility] Diagnosis Bilateral impacted cerumen- Primary Impacted cerumen documented in this encounter [facility] and physical note Author Ramesh Rascon [facility] July 21, 2022 9:27am Note Date/Time July 21, 2022 9: 27am [facility] [address] [place] [address] Gastroenterology H&P Signed Patient: Nas Ren MR#: [id number] : 1940 Acct:[id number] Age/Sex: 82 / M Adm Date: 2 Loc: Room: Type: [facility] Attending Dr: Ramesh Rascon MD Copies [...] <Electronically signed by Ramesh Rascon MD> 07/21/22926 [facility] Work Phone: History general Narrative - [...] HEART CATH 04/2016 Hospitalization History See above IP Street Other History general Narrative - Reported* Type [...] in year 07/2022 Hospitalization History See above IP [facility] Other History general Narrative - Reported* Type [...] sleep apnea Medical History Type 2 diabetes anatoyl itus with chronic kidney disease, without long-term [...] History Colonoscopy w/ polypectomy, rep eat in 07/2022 Surgical History Biventricular ICD 05/2023 Hospitalization History See above IP Street Other Hospital Discharge instructions Additional Instructions DISCHARGE [...] NOT operate machinery such as power tools, [place] mowers, snow blowers, sewing machines, etc. for [...] if you have any problems. - Dr. Rasocn's office will notify you when you need a repeat - Follow up with PCP. - Office number [phone].[facility] Work Phone: InstructionsNot on filedocumented in this encounter [facility] Author Leigha Nelson [facility] June 03, 2022 10:35am Note Date/Time June 03, 2022 10 :10am [facility] [place] [address] Hem/Onc Follow Up Note - OP Signed Patient: Nas Ren MR#: [id number] : 1940 Acct:[id number] Age/Sex: 82 / M Type: REG RCR Copies to: MD Arnie Lui DO Timothy J Adamowicz, II, ~ Date of Service: 06/03/2022 Time of Service: [...] for coordination of care (as documented) and rsha-fx-axrx counseling of patient and/or family. [facility] - Medical History Medical History: Medical [...] % (Auto) 69.9, Lymph % (Auto) 17.2, Merrick % (Auto) 8.0, Eos % (Auto) 4.1, Baso % (Auto) 0.8, Neut # (Auto) 6.2, Lymph # (Auto) 1.5, Merrick # (Auto) 0.7, Eos # (Auto) 0.4, Baso # (Auto) 0.1, Nucleated RBC % (auto) 0.0 - Home Medications and Allergies Allergies/Adverse Reactions: Allergies Mcmpwhx-PCV-DhU Reductase Inhibitor [Nytrzno-Yic-Eqi Reductase Inhibitor] Allergy (Verified 06/03/22 09:55) Muscle [...] <Electronically signed by EDWARD Nelson> 06/03/22 1035 [facility] Work Phone: Progress note Author Chivo Keller [facility] September 02, 2022 2:38pm Note Date/Time September 02, 2022 2:33pm [facility] at [address] [address] Hem/Onc Follow Up Note - OP Signed Patient: Nas Ren MR#: [id number] : 1940 Acct:[id number] Age/Sex: 82 / M Type: REG RCR [...] for coordination of care (as documented) and gslc-ol-rtqc counseling of patient and/or family. [facility] - Medical History Medical History: Medical [...] % (Auto) 68.3, Lymph % (Auto) 18.5, Merrick % (Auto) 8.4, Eos % (Auto) 4.3, Baso % (Auto) 0.5, Neut # (Auto) 4.6, Lymph # (Auto) 1.2, Merrick # (Auto) 0.6, Eos # (Auto) 0.3, Baso # (Auto) 0.0, Nucleated RBC % (auto) 0.1 - Home Medications and Allergies Allergies/Adverse Reactions: Allergies Xofwywr-ZNQ-CoJ Reductase Inhibitor [Lbwcsey-Blo-Bla Reductase Inhibitor] Allergy (Verified 09/02/22 14:10) Muscle [...] by Chivo Keller II, DO> 09/02/22 1438 [facility] Work Phone: Progress note Author Chivo Keller [facility] September 01, 2023 2:14pm Note Date/Time September 01, 2023 2:09pm [facility] [place] [address] Hem/Onc Follow Up Note - OP Signed Patient: Nas Ren MR#: [id number] : 1940 Acct:[id number] Age/Sex: 83 / M Type: REG RCR [...] for coordination of care (as documented) and zjvs-xf-vhwf counseling of patient and/or family. [facility] - Medical History Medical History: Medical [...] Calcium 9.7, Iron 84, TIBC 290, Iron Svdfiyrbcs14.0, Transferrin 207, Ferritin 239.3, Total Bilirubin 0.8, AST 23, ALT 20, Alkaline Phosphatase 114 H, Total Protein 6.9, Albumin 4.4, Globulin 2.5, Albumin/Globulin Ratio 1.8 08/30/23 09:32: Corrected WBC 7.0, Uncorrected WBC Count 7.0, RBC 3.96, Hgb 12.3L, Hct 36.8 L, MCV 92.8, MCH 30.9, MCHC 33.3, RDW 14.8, Plt Count 206, MPV 7.6, Neut % (Auto) 65.9, Lymph % (Auto) 21.9, Merrick % (Auto) 7.9, Eos % (Auto) 3.8, Baso % (Auto) 0.5, Nucleat RBC Rel Count 0.1, Neut # (Auto) 4.6, Lymph # (Auto) 1.5, Merrick # (Auto) 0.5, Eos # (Auto) 0.3, Baso # (Auto) 0.0 - Home Medications and Allergies Allergies/Adverse Reactions: Allergies Vdsuyxs-FOX-HaQ Reductase Inhibitor [Rzivlky-Jjo-Uwo Reductase Inhibitor] Allergy (Verified 03/03/23 13:45) Muscle [...] by Chivo Keller II, DO> 09/01/23 1414 [facility] Work Phone: Progress note Author Chivo Keller [facility] March 01, 2024 11:39am Note Date/Time March 01, 2024 11:18 am [facility] [place] [address] Cancer Center Note Signed Patient: Nas Ren MR#: [id number] : 1940 Acct:[id number] Age/Sex: 83 / M Type: REG AMB [...] Allergy (Unknown, Verified 12/18/23 10:02) Unknown Reaction Djjnrcb-UND-VdY Reductase Inhibitor [Bzbhxdf-Neh-Efw Reductase Inhibitor] Allergy (Unknown, Verified 12/18/23 10:02) [...] PO DAILY ezetimibe 10 mg PO DAILY bnjxjmzwcxb-pesanzbbb-pvozykcr 200-62.5-25 mcg (Trelegy Ellipta) 1 inh inhalation [...] No concerns voiced at time of intake. [facility] Medical History Medical History (Updated 01/30/24 @ [...] signed by Chivo Keller II, DO> 03/01/24 1444 [facility] Work Phone: Summary Purpose Family History [...] section and content) DATE CREATED AUTHOR 07/09/2021 [facility] DATE CREATED AUTHOR AUTHOR'S ORGANIZ ATION 06/10/2022 [facility] DATE CREATED AUTHOR AUTHOR'S ORGANIZ ATION 03/01/2023 [facility] DATE CREATED AUTHOR AUTHOR'S ORGANIZ ATION 08/23/2024 [facility] EPIC DATE CREATED AUTHOR AUTHOR'S ORGANIZ ATION 08/24/2024 [facility] DATE CREATED AUTHOR AUTHOR'S ORGANIZ ATION 09/13/2024 [facility] Care Teams (unrecognized sec tion and content) Team Status: Active Member Role Status Dates Arnie Linda DO Primary Care Provider Active Team Status: Active Member Role Status Dates Arnie Linda DO Primary Care Provide r, Attending Provider Active Start: February 01, 2024 Team Status: Active Member Role Status Dates Arnie Linda DO Primary Care Provider Active Start: March 01, 2024 Kalia Sánchez MD Referring Provider Active Sta rt: March 01, 2024 Chivo Keller II DO Attending Provider Active Start: March 01, 2024 Team Status: Inactive Member Role Status Dates Arnie Linda DO Primary Care Provider Active Start: March 01, 2024 End: March 01, 2024 Chivo Keller II DO Attending Provider Active Start: March 01, 2024 End: March 01, 2024 Team Status: Inactive Member Role Status Dates Arnie Linda DO Primary Care Provide r, Attending Provider Active Start: April 22, 2024 End: April 22, 2024 Team Status: Inactive Member Role Status Dates Arine Linda DO Primary Care Provide r, Attending Provider Active Start: December 18, 2023 End: December 18, 2023 Team Status: Active Member Role Status Dates Arnie Linda DO Primary Care Provide r, Attending Provider Active Start: December 19, 2023 Team Status: Active Member Role Status Dates Arnie Linda DO Primary Care Provider Active Kalia Sánchez MD Referring Provider Active Chivo J Adamowicz II, DO Attending Provider Active Team Status: Inactive Member Role Status Dates Arnie Linda , DO Primary Care Provider Active CHARLENE Calvin Attending Provider Jesus staples Team Status: Inactive Member Role Status Dates Arnie Linda , DO Primary Care Provider Active Ramesh Rascon MD Attending Provider Active English Language Learner Tutor Relationship Specialty Start Date End Date Arnie Linda DO PCP - General Internal Medicine 11/11/21 English Language Learner Tutor Relationship Specialty Start Date End Date Arnie Linda MD [address] [place] [address] PCP - General Internal Medicine 08/24/23 English Language Learner Tutor Relationship Specialty Start Date End Date Arnie Linda MD [address] [place] [address] PCP - General Internal Medicine 08/24/23 Goals (unrecognized section and content) Goals may [...] sectionGoals may be documented in an alternate sectionNot on filedocumented as of this encounter REASON FOR VISIT (unrecogniz ed section and [...] BE BASED ON THE PRIMARY CLINICAL RECORDS. [facility] [employer] provides no warranty or guarantee of the accuracy or completeness of information in this document.
[2024-09-13 10:42] LABS: Thyroid Stimulating Hormone 10.212 uIU/mL (0.358-3.740)
[2024-09-13 10:43] LABS: Free T4 0.96 ng/dL (0.76-1.46)
[2024-09-13 11:16] LABS: Estimated Average Glucose 140 mg/dL; Glycohemoglobin A1C 6.5 % (4.5-6.2)
[2024-09-15 17:08] LABS: Thyroid Stim Immunoglobulin <0.10 IU/L (0.00-0.55)
== END 2024-09-13 08:25 | disposition home or self-care (01) ==
LOC: LAB 08:25
PROVIDERS: PCP Internal Medicine; Visit Provider Internal Medicine
DX: E11.65 Type 2 diabetes mellitus with hyperglycemia (principal); E03.2 Hypothyroidism due to medicaments and other exogenous substances; E05.90 Thyrotoxicosis, unspecified without thyrotoxic crisis or storm
CPT/HCPCS: 36415; 83036; 84439; 84443; 84445

== ENCOUNTER 2024-09-19 08:47 | Outpatient (OUT) | payer MEDICARE, SELFPAY ==
--- NOTE | 2024-09-19 09:00 | CA_ITS ---
Patient Name: DELANO REN MR#: [id number] : 1940 Exam Date: 09/19/2024 Ordering Doctor: TRANG DEGROOT ECHOCARDIOGRAM REPORT PROCEDURE: CA ECHO DOPPLER COMPLETE INDICATIONS: Congestive heart failure with low ejection fraction, AICD, hypertension, diabetes, COPD COMPARISON: None. DESCRIPTION: COMPLETE ECHOCARDIOGRAM Real-time transthoracic echocardiography with 2D, M-mode, spectral and color flow Doppler performed. QUALITY: Technical quality was good. LEFT VENTRICLE: Mild dilatation. Normal left ventricular wall thickness. LV EF: Global left ventricular systolic function is moderately reduced; visually estimated ejection fraction is 35 to 40%. Calculated left ventricular ejection fraction is 40%. Global hypokinesis. DIASTOLIC: Unable to assess diastolic dysfunction due to underlying rhythm. ATRIAL SEPTUM: Visually appears intact. LEFT ATRIUM: Severe dilatation. RIGHT ATRIUM: Moderate dilatation. RIGHT VENTRICLE: Mild dilatation. Systolic function appears reduced. Pacer wire present. TRICUSPID VALVE: Normal mobility and thickness. Mild to moderate regurgitation. Doppler studies reveal moderately (45-60) elevated right sided pressures.RVSP 49 mmHg MITRAL VALVE: Normal mobility and thickness. No evidence of mitral valve stenosis. There is no mitral annular calcification. Mild mitral regurgitation. AORTIC VALVE: Normal trileaflet appearance. No visible sclerosis. Normal leaflet mobility. No evidence of aortic valve stenosis. No aortic regurgitation. AORTIC ROOT: Normal diameter and appearance. Ascending aorta is normal in size. PULMONIC VALVE: Normal thickness and mobility. No stenosis. Trivial regurgitation. PERICARDIUM: No evidence of pericardial effusion. IVC: IVC is dilated (2.4 cm), does not fully collapse. CONCLUSION: 1. Global left ventricular systolic function is moderately reduced; visually estimated ejection fraction is 35 to 40% 2. Left ventricle is mildly dilated 3. The right ventricle is mildly dilated with reduced systolic function 4. Biatrial dilatation 5. Mild to moderate tricuspid regurgitation 6. Moderately elevated right ventricular systolic pressure; RVSP 49 mmHg 7. Mild mitral regurgitation Adult Echocardiography Procedure Report Left Ventricle LVEDD (3.7 - 5.6 cm): 6.23 cm LVESD (2.2 - 4.0 cm): 5.15 cm LVIVS thickness (0.6 - 1.2 cm): 0.88 cm LVPW thickness (0.5 - 1.0 cm): 1.01 cm e': 0.06 m/s E - e': 11.58 LVOT Max Gradient: 1.20 mm[Hg] LVOT Area (cm2): 0.55 m/s Peak Velocity (LVOT): 0.55 m/s Mean Velocity (LVOT): 0.38 m/s LVOT Diameter 2.54 cm Left Atrium LA Volume Index (2D A2C): 59.43 ml/m2 Left Atrium Systolic Dimension: 4.24 cm Mitral Valve MV E to A Ratio: 1.90 Mitral Valve A-Wave Peak Velocity: 0.38 m/s Mitral Valve E-Wave Peak Velocity: 0.73 m/s Right Ventricle Aorta AO Root Diam: 3.47 cm Ascending Ao Diam: 2.77 cm Aortic Valve AoV Area (Peak Ezequiel): 1.93 cm2, 1.93 cm2 AoV Area (VTI): 2.11 cm2, 2.11 cm2 Peak Velocity(Antegrade Flow): 1.43 m/s Peak Gradient(Antegrade Flow): 8.23 mm[Hg] Mean Velocity(Antegrade Flow): 0.98 m/s Mean Gradient(Antegrade Flow): 4.33 mm[Hg] Velocity Time Integral: 27.75 cm Tricuspid Valve Peak Velocity (Regurgitant Flow): 2.92 m/s, 2.58 m/s Pulmonic Valve Mean Gradient: 0.84 mm[Hg] Mean Velocity: 0.41 m/s Peak Velocity: 0.72 m/s, 0.63 m/s Peak Gradient: 1.60 mm[Hg], 2.08 mm[Hg] Right Atrium Right Atrium Systolic Pressure: 73.93 ml, 73.93 ml Dictated by: Sriram Rick M.D. on 09/19/2024 at 15:05 Approved by: Sriram Rick M.D. on 09/19/2024 at 15:13
== END 2024-09-19 08:48 | disposition home or self-care (01) ==
LOC: CARD 08:47
PROVIDERS: PCP Internal Medicine; Visit Provider Internal Medicine Cardiovascular Disease
DX: I50.41 Acute combined systolic (congestive) and diastolic (congestive) heart failure (principal); I48.0 Paroxysmal atrial fibrillation
CPT/HCPCS: 93306; 93356

== ENCOUNTER 2024-10-11 10:04 | Outpatient (OUT) | payer MEDICARE, SELFPAY ==
--- OUTSIDE RECORDS SUMMARY | 2024-10-11 10:22 | XMS_ITS | CCD ---
Author Organization [facility] Inform ion [facility] Care Team Providers Care Videotape Recording Engineer Name Role Phone GILMER SALAZAR Attending Unavailable GILMER SALAZAR Admitting Unavailable RANIE LINDA Referring Unavailable ARNIE LINDA Primary Care Unavailable DO Arnie Linda Primary Care Provider CHARLENE Kelly Attending Provider MD Kalia Sánchez Referring Provider [phone] DO Chivo Keller II Attending Provider MD Kalia Sánchez Referring Provider DO Chivo Keller II Attending Provider MD Ramesh Rascon Attending Provider [phone] DO Arnie Linda Primary Care Provider MD [...] Adamowicz II, DO Chivo Howell Attending Provider DO Arnie Linda Primary Care Provider MD Kalia Sánchez Referring Provider Klausicz II, DO Chivo Howell Attending Provider Arnie Linda DO Primary Care Provider Arnie Linda MD Primary Care Provider RANDALL DELEON Attending Unavailable MARILIN CLAY Attending Unavailable Ramesh Rascon Attending Unavailable Ramesh Rascon Admitting Unavailable Arnie Linda [facility] Unavailable Adamowicz II, Chivo Howell Attending Unavaila ble Adamowicz II, Chivo Howell Admitting Unavaila ble Kalia Sánchez Referring Unavailable Arnie Linda Primary Care Unavailable BASHIRGREG Referring Unavailable MIKAYLA, TRANG Referring Unavailable MIKAYLA, TRANG Referring Unavailable MIKAYLA, TRANG Referring Unavailable BASHIR, GREG Referring Unavailable MIKAYLA, TRANG Referring Unavailable MIKAYLA, TRANG Referring Unavailable MIKAYLA, TRANG Referring Unavailable MIKAYLA, TRANG Referring Unavailable MIKAYLA, TRANG Attending Unavailable MIKAYLA, TRANG Referring Unavailable MIKAYLA, TRANG Referring Unavailable MIKAYLA, TRANG Referring Unavailable MOUKARBELDAWN Attending Unavailable ENRRIQUE MCKEON Attending Unavailable BASHIR, GREG Referring Unavailable MIKAYLA, TRANG Referring Unavailable MIKAYLA, TRANG Referring Unavailable MIKAYLA, TRANG Referring Unavailable MIKAYLA, TRANG Referring Unavailable Allergies Allergy Classification Reported Allergen(s) Allergy Type Date of Onset Reaction(s) Facility (3 sources) black walnut pollen extract; Translations: [SJCBWGO-CXO-CGM REDUCTASE INHIBITORS] Drug Allergy 05-16-20 18 [facility] Repository (11 sources) traMADol; Translations: [TRAMADOL] Drug Allergy 03-30-20 22 Itching [facility] Repository (9 sources) Qnxspij-MMJ-GnA Reductase Inhibitor; Translations: [Rnhyzgl-UZI-NiS Reductase Inhibitor] Allergy to substance 06-03-20 Muscle Pain [facility] (13 sources) Albuterol Drug Allergy Unknown valuescope Other (17 sources) ezetimibe Drug Allergy Unknown valuescope Other (13 sources) HMG-CoA reductase inhibitor Drug allergy Unknown [facility] Other (19 sources) Niacin Drug Allergy Unknown [facility] Other (19 sources) Simvastatin Drug Allergy 12-18-19 24 Unknown, Unknown Reaction [facility] (8 sources) Statins Depletion *DIETARY PRODUCTS/DIETARY MANAGE Propensity to adverse reactions Unknown [facility] Other (4 sources) Allergies Reconciled Propensity to adverse reactions Unknown valuescope Other (8 sources) Albuterol *ANTIASTHMATIC AND BRONCHODILATOR AGENTS Propensity to adverse reactions Comment:dedrick lala more with this valuescope Other (4 sources) patient allergy list reviewed by nurse or physicia Propensity to adverse reactions 04-04-20 Comment:Done valuescope Other (4 sources) Niacin Drug Allergy 12-18-19 Unknown, Unknown Reaction [facility] (1 source) HMG-CoA reductase inhibitor Propensity to adverse reactions to drug 11-03-19 Differential (1 source) Simvastatin Drug Allergy 08-22-20 [facility] Repository (1 source) traMADol Drug Allergy 08-22-20 [facility] Repository Medications Current Medications Medication Drug Class(es) [...] 2021 1:35pm apixaban 2.5 mg oral tablet (19 sources) Factor Xa Inhibitor Start: 03-03-2023 take [...] Vitro Active ezetimibe 10 mg oral tablet (20 sources) Dietary Cholesterol Absorption Inhibitor Start: 03-01-2024 take 10 mg by mouth once daily Ezetimibe Active 10 MG PO Daily March 01, 2024 12:00am Start: 03-03-2023 End: 12-15-2023 take 1 tablet by mouth once daily Ezetimibe (Zetia) 10 mg Tablet Discontinued 10 MG PO Daily March 03, 2023 12:00am December 15, 2023 2:47pm Scugqlookkh-Vqhspyibu-Dhokev (Trelegy Ellipta) 200-62.5-25 MCG/ACT aerosol powder (5 sources) Fluticasone-Umec lidin-Vilant (Trelegy Ellipta) 200-62.5-25 MCG/ACT aerosol powder Inhale Active Dykfatqynzc-Sayqinhju-Erhefa er (2 sources) Sta rt: 4 Ooxnzdqvdtr-Pozhvodxa-Iisryt er (Trelegy Ellipta) 200-62.5-25 mcg blister with [...] day Methimazole Active 5 MG PO .QOD 08 14April 22, 2024 11:06am Start: 04-17-2024 End: 04-22-2024 [...] 02, 2021 1:37pm take 2 tablets by [facility] every twenty-four hours in the morning metoprolol [...] day Active Pulmicort Not-Ta ting/PRN Pulmicort Not-Ta bumetanide 1 mg oral tablet [...] 2021 1:40pm take 1 tablet by [facility] once daily bumetanide (Bumex) 2 MG tablet [...] August 02, 2021 1:40pm polyethylene glycol 3350 58466 mg powder for oral solution (8 sources) [...] Coronary arteriosclerosis; Translations: [Atherosclerotic heart disease of grayling coronary artery without angina pectoris] Onset: 03-09-2022 [...] 10-06-2022 08-31-2021 Chronic Miscellaneous mental health disorders (7 sources) Primary insomnia; Translations: [Primary insomnia] Onset: [...] Translations: [Other forms of dyspnea] Episodic Other lower respiratory disease (2 sources) Snoring; Translations: [Snoring] 07-09-2024 Episodic Other lower respiratory disease (2 sources) Hypoxia; Translations: [Hypoxemia] 07-09-2024 Episodic Other nervous system disorders (6 sources) [...] sleep apnea (adult)(pediatric)] Chronic Residual codes; unclassified (7 sources) Hypersomnia; Translations: [Hypersomnia, unspecified] Onset: 07-08-2024 [...] 12-28-2017 Episodic Other aftercare (1 source) Other fpc (current) drug therapy; Translations: [OTH INTERMEDIATE CURRENT DRUG THERAPY] Onset: 03-09-2022 Episodic Other [...] Test Name Value Interpretation Reference Range Facility 36on 09-20-2024 36 Regarding echo result from 09/19/2024: Per Dr. Montoya - EF has improved. Will repeat echo in 6 months. Order entered and faxed to [facility]. Patient and his informed. Normal [facility] Office Visiton 09-10-2024 Follow-up visit [id number] Nas Ren 1940 M Date Provider Department Center 09/10/2024 TRANG LOPEZ DARWIN Agustin [facility] Family History Problem Relation Age of Onset Diabetes Mother Heart disease Father Glaucoma Brother Diabetes Maternal Grandmother Clotting disorder Other Family Status - Relation Status Age at Mother Father Brother Maternal Grandmother Other Level of Service:09954 [place] OFFICE/OUTPATIENT ESTABLISHED LOW MDM 20 MIN Normal [facility] Glucose Poct Glucometerson 1 10-22-2023 Commemt1 Glu2: Cleaned Meter Normal [facility] Comment on above: Result Comment: PERF ORMED BY: [facility] [address] [place] [address] PATHOLOGIST GRIDDLE ATTENDANT TRU UMANZOR M.D. Performed By: #### G CONI #### Point of Care testing , Glucose [Mass/Vol] 112 mg/dL Normal [facility] Comment on above: Result Comment: [facility] Glucose Reference Range is dependent on time and content of last meal. Glucose of more than 200 mg/dL in a nonstressed, ambulatory subject supports the diagnosis of Diabetes Mellitus. Performed By: #### G CONI #### Point of Care testing , Vijay 08-22-2024 L Specimen: [id number] Received: 08/22/24 Status: ДМИТРИЙ Adlerjeramy Num: [id number] Spec Type: Surgical Subm Dr: Ramesh Rascon MD Tissues: A Colon Biopsy (TRANSVERSEPOLYPS) B Colon Biopsy (DESCENDING POLYPS) C Colon Biopsy (SIGMOID POLYPS) Procedures: MELA/Mehdi, Julieta/Srinivas L4/3 Age/ Patient Sex Location Account Attending Physician Nas Ren 84/M [id number] Ramesh Rascon MD SPEC NUM: [id number] RECD: 08/22/24 STATUS: ДМИТРИЙ BARRY NUM: [id number] LLOYD: 08/22/24 DR: Ramesh Rascon MD ENTERED: 08/22/[address] [facility] [address]: RHIANNA TYPE: Surgical DEPT: S ENTERED BY: [id number] RECV BY: [id number] ORDERED: HE/6, Gross/Micro L4/3 ORDERED: HE/6, Gross/Micro [...] submitted in a single cassette. (1, ns, [id number]) JG B received in formalin labeled descending polyps are 5 staley-parr, focally erythematous, friable, 0.2 to 0.5 cm polypoid fragments. The specimen is entirely submitted in a single cassette. (1, ns, [id number] B) JG C. Received in formalin labeled sigmoid polyps are 4 staley-parr, focally erythematous, Specimen: [id number] Received: 08/22/24 Status: ДИМТРИЙ Barry Num: [id number] Spec Type: Surgical Subm Dr: Ramesh Rascon MD Tissues: A Colon Biopsy (TRANSVERSEPOLYPS) B Colon Biopsy (DESCENDING POLYPS) C Colon Biopsy (SIGMOID POLYPS) Procedures: HE/6, Gross/Micro L4/3 Patient: Nas Ren [id number] (Continued) Specimen: [id number] Received: 08/22/24 (Continued) Gross Description (Continued) Signed (signatur e on file) Logan Ruiz MD 08/23/24 0926 Specimen: [id number] Received: 08/22/24 Status: ДМИТРИЙ Barry Num: [id number] Spec Type: Surgical Subm Dr: Ramesh Rascon MD Tissues: A Colon Biopsy (TRANSVERSEPOLYPS) B Colon Biopsy (DESCENDING POLYPS) C Colon Biopsy (SIGMOID POLYPS) Procedures: HE/6, Gross/Micro L4/3 Patient: Nas Ren [id number] (Continued) Specimen: [id number] Received: 08/22/24 (Continued) Gross Description (Continued) friable, 0.2 to 0.4 cm polypoid fragments. The specimen is entirely submitted in a single cassette. (1, ns, [id number] C) CPT Codes 88 305 x 3 Specimen: [id number] Received: 08/22/24 Status: ДМИТРИЙ Barry Num: [id number] Spec Type: Surgical Subm Dr: Ramesh Rascon MD Tissues: A Colon Biopsy (TRANSVERSEPOLYPS) B Colon Biopsy (DESCENDING POLYPS) C Colon Biopsy (SIGMOID POLYPS) Procedures: HE/6, Gross/Micro L4/3 Patient: Nas Ren [id number] (Continued) Signed (signatur e on file) Logan Ruiz MD 08/23/24925 Normal [facility] 36on 08-12-2024 36 Okay to hold Eliquis 2 days prior to colonoscopy. Thanks Normal [facility] Office Visiton 07-24-2024 Follow-up visit [id number] Nas Ren 1940 [facility] Provider Department [place] 07/24/2024 IdalmisENRRIQUE MCKEON CARD [facility] Family History Problem Relation Age of Onset Diabetes Mother Heart disease Father Glaucoma Brother Diabetes Maternal Grandmother Clotting disorder Other Family Status - Relation Status Age at Mother Father Brother Maternal Grandmother Other Level of Service:13854 [place] OFFICE/OUTPATIENT ESTABLISHED MOD MDM 30 MIN Reason for Visit and Comments: Atrial Fibrillation [80] Coronary Artery Disease [187] Normal [facility] Office Visiton 03-29-2024 Follow-up visit [id number] Nas Ren 1940 M Date Provider Department Center 03/29/2024 DAWN YOUSIF CARD [facility] Family History Problem Relation Age of Onset Diabetes Mother Heart disease Father Glaucoma Brother Diabetes Maternal Grandmother Clotting disorder Other Family Status - Relation Status Age at Mother Father Brother Maternal Grandmother Other Level of Service:84276 [place] OFFICE/OUTPATIENT ESTABLISHED LOW MDM 20 MIN Normal [facility] Alanine aminotransferase [En zymatic activity/volume] in Serum or PlasmaOrdered By: Chivo Keller on 02-22-2024 ALT [Catalytic activity/Vol] 15 U/L Normal 7-52 [facility] Comment on above: Performed By: #### V [id number], TONY, CMP, FE and TIBC, CBC #### [facility] [address] #### SPE, KAPPA, LEXI SERUM #### [facility] , Albumin [Mass/volume] in Ser um or PlasmaOrdered By: Chivo Keller on 02-22-2024 Albumin [Mass/Vol] 3.9 g/dL Normal 2.9-4.4 [facility] Comment on above: Performed By: #### V [id number], TONY, CMP, FE and TIBC, CBC ####[facility] [address]#### SPE, KAPPA, LEXI SERUM ####[facility] , Albumin [Mass/volume] in Ser um or Plasma by Bromocresol green (BCG) dye binding methoOrdered By: Chivo Keller on 02-22-2024 Albumin BCG dye [Mass/Vol] 4.4 g/dL 3.5-5.7 [facility] Alkaline phosphatase [Enzyma tic activity/volume] in Serum or PlasmaOrdered By: Chivo Keller on 02-22-2024 ALP [Catalytic activity/Vol] 100 U/L Normal 34-104 [facility] Comment on above: Performed By: #### V [id number], TONY, CMP, FE and TIBC, CBC #### [facility] [address] [place] [address] #### SPE, KAPPA, LEXI SERUM #### [facility] , Aspartate aminotransferase [ Enzymatic activity/volume] in Serum or PlasmaOrdered By: Chivo Keller on 02-22-2024 AST [Catalytic activity/Vol] 18 U/L Normal 13-39 [facility] Comment on above: Performed By: #### V [id number], TONY, CMP, FE and TIBC, CBC #### [address] #### SPE, KAPPA, LEXI SERUM #### [facility] , Automated basophil %Ordered By: Chivo Keller on 02-22-2024 Basophils/100 WBC (Bld) 0.5 % Normal . [facility] Comment on above: Performed By: #### V [id number], TONY, CMP, FE and TIBC, CBC #### [address] #### SPE, KAPPA, LEXI SERUM #### [facility] , Automated basophil countOrde red By: Chivo Keller on 02-22-2024 Basophils (Bld) [#/Vol] 0.0 10*3/uL Normal 0.0-0.2 [facility] Comment on above: Result Comment: PERF ORMED BY: [place] [address] PATHOLOGIST GRIDDLE ATTENDANT TRU UMANZOR M.D. Performed By: #### V [id number], TONY, CMP, FE and TIBC, CBC #### [address] #### SPE, KAPPA, LEXI SERUM #### [facility] , Automated blood monocyte cou ntOrdered By: Chivo Keller on 02-22-2024 Monocytes (Bld) [#/Vol] 0.8 10*3/uL Normal 0.0-0.8 [facility] Comment on above: Performed By: #### V [id number], TONY, CMP, FE and TIBC, CBC #### [place] [address] [place] #### SPE, KAPPA, LEXI SERUM #### [facility] , Automated eosinophil %Ordere d By: Chivo Keller on 02-22-2024 Eosinophils/100 WBC (Bld) 3.8 % Normal . [facility] Comment on above: Performed By: #### V [id number], TONY, CMP, FE and TIBC, CBC #### [place] [address] [place] #### SPE, KAPPA, LEXI SERUM #### [facility] , Automated eosinophil countOr dered By: Chivo Keller on 02-22-2024 Eosinophils (Bld) [#/Vol] 0.3 10*3/uL Normal 0.0-0.45 [facility] Comment on above: Performed By: #### V [id number], TONY, CMP, FE and TIBC, CBC #### [place] [address] [place] #### SPE, KAPPA, LEXI SERUM #### [facility] , Automated monocyte %Ordered By: Chivo Keller on 02-22-2024 Monocytes/100 WBC (Bld) 10.0 % Normal . [facility] Comment on above: Performed By: #### V [id number], TONY, CMP, FE and TIBC, CBC #### [place] [address] [place] #### SPE, KAPPA, LEXI SERUM #### [facility] , Automated neutrophil %Ordere d By: Chivo Keller on 02-22-2024 Neutrophils/100 WBC (Bld) 66.6 % Normal . [facility] Comment on above: Performed By: #### V [id number], TONY, CMP, FE and TIBC, CBC #### [place] [address] [place] #### SPE, KAPPA, LEXI SERUM #### [facility] , Bilirubin.total [Mass/volume ] in Serum or PlasmaOrdered By: Chivo Keller on 02-22-2024 Bilirubin [Mass/Vol] 0.7 mg/dL Normal 0.3-1.0 [facility] Comment on above: Performed By: #### V [id number], TONY, CMP, FE and TIBC, CBC #### [facility] [address] [place] [address] #### SPE, KAPPA, LEXI SERUM #### [facility] , CT abdomen pelvis wo conon 0 02-22-2024 CT abdomen pelvis wo con [facility] [place] [address] [place] [address] CT Scan Report Signed Patient: Nas Ren MR#: [id number] 24 : 1940 Acct:[id number] Age/Sex: 83 / M ADM Date: 02/22/24 [facility]: [facility]: [facility] Dr: Chivo Keller II, DO Copies to: Chivo Keller II, DO Ordering Provider: Chivo Keller II, DO Date of Service: 02/22/24 CT/CT abdomen pelvis wo con: surveilance ([id number]) CT/CT chest wo con: surveilance CT chest [...] Michaela Bernard M.D.02/22/2024 2:03 PM Dictation Location: [place] [address] Transcribed By: [facility] 02/22/24 1403 Dictated By: Michaela Bernard II, MD 02/22/24 1351 Signed By: 02/22/24 1403 Normal [facility] Calcium [Mass/volume] in Ser um or PlasmaOrdered By: Chivo Keller on 02-22-2024 Calcium [Mass/Vol] 9.4 mg/dL Normal 8.6-10.3 [facility] Comment on above: Performed By: #### V [id number], TONY, CMP, FE and TIBC, CBC #### [place] [address] [place] #### SPE, KAPPA, LEXI SERUM #### [facility] , Carbon dioxide, total [Moles /volume] in Serum or PlasmaOrdered By: Chivo Keller on 02-22-2024 CO2 [Moles/Vol] 33.2 mmol/L High 21.0-31.0 [facility] Comment on above: Performed By: #### V [id number], TONY, CMP, FE and TIBC, CBC #### [place] [address] [place] #### SPE, KAPPA, LEXI SERUM #### [facility] , Chloride [Moles/volume] in S alayna or PlasmaOrdered By: Chivo Keller on 02-22-2024 Chloride [Moles/Vol] 100 mmol/L Normal 98-107 [facility] Comment on above: Performed By: #### V [id number], TONY, CMP, FE and TIBC, CBC #### [place] [address] [place] #### SPE, KAPPA, LEXI SERUM #### [facility] , Complete Blood Count Auto Di ffon 02-22-2024 Mean Corpuscular HGB Conc 33.9 g/dL Normal 32.5-35.6 [facility] Comment on above: Performed By: #### V [id number], TONY, CMP, FE and TIBC, CBC #### [place] [address] [place] #### SPE, KAPPA, LEXI SERUM #### [facility] , NRBC% 0.0 /100{WBC} Normal 0-0.5 [facility] Comment on above: Performed By: #### V [id number], TONY, CMP, FE and TIBC, CBC #### [place] [address] [place] #### SPE, KAPPA, LEXI SERUM #### [facility] , Comprehensive Metabolic Pane vijay 02-22-2024 Albumin [Mass/Vol] 4.4 g/dL Normal 3.5-5.7 [facility] Comment on above: Performed By: #### V [id number], TONY, CMP, FE and TIBC, CBC #### [address] #### SPE, KAPPA, LEXI SERUM #### [facility] , Creatinine Clr Calc Pharmacy 29.06 Normal [facility] Comment on above: Performed By: #### V [id number], TONY, CMP, FE and TIBC, CBC #### [place] [address] [place] #### SPE, KAPPA, LEXI SERUM #### [facility] , GFR/1.73 sq M.predicted MDRD (S/P/Bld) [Vol rate/Area] 26.711 mL/min/{1.73_m2} Normal [facility] Comment on above: Performed By: #### V [id number], TONY, CMP, FE and TIBC, CBC #### [facility] [address] [place] [address] [place] #### SPE, KAPPA, LEXI SERUM #### [facility] , Creatinine [Mass/volume] in Serum or PlasmaOrdered By: Chivo Keller on 02-22-2024 Creatinine [Mass/Vol] 2.38 mg/dL High 0.70-1.30 [facility] Comment on above: Performed By: #### V [id number], TONY, CMP, FE and TIBC, CBC #### [facility] [address] [place] [address] #### SPE, KAPPA, LEXI SERUM #### [facility] , Erythrocyte distribution wid th [Ratio] by Automated countOrdered By: Chivo Keller on 02-22-2024 Erythrocyte distribution width (RBC) [Ratio] 14.6 % Normal 12.0-14.8 [facility] Comment on above: Performed By: #### V [id number], TONY, CMP, FE and TIBC, CBC #### [address] #### SPE, KAPPA, LEXI SERUM #### [facility] , Erythrocytes [#/volume] in B lood by Automated countOrdered By: Chivo Keller on 02-22-2024 RBC (Bld) [#/Vol] 4.09 10*6/uL Normal 3.90-5.60 [facility] Comment on above: Performed By: #### V [id number], TONY, CMP, FE and TIBC, CBC #### [facility] [address] [place] [address] [place] #### SPE, KAPPA, LEXI SERUM #### [facility] , Ferritin [Mass/volume] in Se rum or PlasmaOrdered By: Chivo Keller on 02-22-2024 Ferritin [Mass/Vol] 236.8 ng/mL Normal 23.9-336.2 [facility] Comment on above: Performed By: #### V [id number], TONY, CMP, FE and TIBC, CBC #### [facility] [address] [place] [address] [place] #### SPE, KAPPA, LEXI SERUM #### [facility] , Folate [Mass/volume] in Seru m or PlasmaOrdered By: Chivo Keller on 02-22-2024 Folate [Mass/Vol] 36.0 ng/mL >5.9 [facility] Comment on above: Folate reference ran ge: >5.9 ng/mlThe WHO technical consultation on folate and vitamin [id number] has determined that folate concentrations lessthan 4 ng/ml are considered deficient. Free K+L LT Chains, Qn, Son 02-22-2024 Free [place] Light Chains, S 56.1 mg/L High 3.3-19.4 [facility] Comment on above: Performed By: #### V [id number], TONY, CMP, FE and TIBC, CBC ####[place] [address] [address]#### SPE, KAPPA, LEXI SERUM ####[facility] , Free Lambda Light Chains, S 37.2 mg/L High 5.7-26.3 [facility] Comment on above: Performed By: #### V [id number], TONY, CMP, FE and TIBC, CBC ####[address]#### SPE, KAPPA, LEXI SERUM ####[facility] , [place]/Lambda Ratio, S 1.51 Normal 0.26-1.65 [facility] Comment on above: Result Comment: Perf ormed at: - [facility] [place] [id number] Custom Grinder: Nathan Munoz PhD, Phone: [phone] PERFORMED BY: [facility] [address] [place] [address] PATHOLOGIST GRIDDLE ATTENDANT TRU UMANZOR M.D. Performed By: #### V [id number], TONY, CMP, FE and TIBC, CBC ####[address]#### SPE, KAPPA, LEXI SERUM ####[facility] , Glucose [Mass/volume] in Ser um or PlasmaOrdered By: Chivo Keller on 02-22-2024 Glucose [Mass/Vol] 129 mg/dL High 70-100 [facility] Comment on above: ADA recommended refe rence rangeRandom Glucose Reference Range is dependent on time and content of last meal. Glucose of more than 200 mg/dL in a nonstressed, ambulatory subject supports the diagnosis of Diabetes Mellitus. Result Comment: [place] om Glucose Reference Range is dependent on time and content of last meal. Glucose of more than 200 mg/dL in a nonstressed, ambulatory subject supports the diagnosis of Diabetes Mellitus. ADA recommended reference range Performed By: #### V [id number], TONY, CMP, FE and TIBC, CBC #### [facility] [address] [place] [address] [place] #### SPE, KAPPA, LEXI SERUM #### [facility] , Hematocrit [Volume Fraction] of Blood by Automated countOrdered By: Chivo Keller on 02-22-2024 Hematocrit (Bld) [Volume fraction] 38.1 % Low 38.8-50.0 [facility] Comment on above: Performed By: #### V [id number], TONY, CMP, FE and TIBC, CBC #### [place] [address] [place] #### SPE, KAPPA, LEXI SERUM #### [facility] , Hemoglobin [Mass/volume] in BloodOrdered By: Chivo Keller on 02-22-2024 Hemoglobin (Bld) [Mass/Vol] 12.9 g/dL Low 13.0-17.0 [facility] Comment on above: Performed By: #### V [id number], TONY, CMP, FE and TIBC, CBC #### [place] [address] [place] #### SPE, KAPPA, LEXI SERUM #### [facility] , IgA [Mass/volume] in Serum o r PlasmaOrdered By: Chivo Keller on 02-22-2024 IgA [Mass/Vol] 179 mg/dL 61-437 [facility] IgG [Mass/volume] in Serum o r PlasmaOrdered By: Chivo Keller on 02-22-2024 IgG [Mass/Vol] 987 mg/dL 603-1613 [facility] IgM [Mass/volume] in Serum o r PlasmaOrdered By: Chivo Keller on 02-22-2024 IgM [Mass/Vol] 143 mg/dL 15-143 [facility] Comment on above: Performed at: [facility] [place] [address] [id number] Director: Nathan Munoz PhD, Phone: [phone] Immunofixation,Serumon 02-21 Immunofixation, Serum Normal . [facility] Comment on above: Result Comment: No m onoclonality detected. Performed By: #### V [id number], TONY, CMP, FE and TIBC, CBC #### [address] #### SPE, KAPPA, LEXI SERUM #### [facility] , Immunoglobulin A, Serum 179 mg/dL Normal 61-437 [facility] Comment on above: Performed By: #### V [id number], TONY, CMP, FE and TIBC, CBC #### [place] [address] [place] #### SPE, KAPPA, LEXI SERUM #### [facility] , Immunoglobulin G 987 mg/dL Normal 603-1613 [facility] Comment on above: Performed By: #### V [id number], TONY, CMP, FE and TIBC, CBC #### [place] [address] [place] #### SPE, KAPPA, LEXI SERUM #### [facility] , Immunoglobulin M, Serum 143 mg/dL Normal 15-143 [facility] Comment on above: Result Comment: Perf ormed at: - [facility] [address] [address] [place], [place] [id number] Custom Grinder: Nathan Munoz PhD, Phone: [phone] Performed By: #### V [id number], TONY, CMP, FE and TIBC, CBC #### [place] [address] [place] #### SPE, KAPPA, LEXI SERUM #### [facility] , Immunoglobulin light chains. kappa.free [Mass/volume] in SerumOrdered By: Chivo Keller on 02-22-2024 Immunoglobulin light chains.kappa.free (S) [Mass/Vol] 56.1 mg/L High 3.3-19.4 [facility] Immunoglobulin light chains. kappa.free/Immunoglobulin light chains.lambda.free [MassOrdered By: Chivo Keller on 02-22-2024 Immunoglobulin light chains.kappa.free/Immuno globulin light chains.lambda.free (S) [Mass ratio] 1.51 0.26-1.65 [facility] Comment on above: Performed at: [address] [id number] Director: Nathan Munoz PhD, Phone: [phone] Immunoglobulin light chains. lambda.free [Mass/volume] in Serum or PlasmaOrdered By: Chivo Keller on 02-22-2024 Immunoglobulin light chains.lambda.free [Mass/Vol] 37.2 mg/L High 5.7-26.3 [facility] Iron [Mass/volume] in Serum or PlasmaOrdered By: Chivo Keller on 02-22-2024 Iron [Mass/Vol] 85 ug/dL Normal 50-212 [facility] Comment on above: Performed By: #### V [id number], TONY, CMP, FE and TIBC, CBC #### [facility] [address] [place] [address] [place] #### SPE, KAPPA, LEXI SERUM #### [facility] , Iron and TIBC Profileon % Iron Saturation 30.2 % Normal 20-50 [facility] Comment on above: Performed By: #### V [id number], TONY, CMP, FE and TIBC, CBC #### [facility] [address] [place] [address] [place] #### SPE, KAPPA, LEXI SERUM #### [facility] , Total Iron Binding Capacity 281 ug/dL Normal 255-450 [facility] Comment on above: Performed By: #### V [id number], TONY, CMP, FE and TIBC, CBC #### [facility] [address] [place] [address] [place] #### SPE, KAPPA, LEXI SERUM #### [facility] , Iron binding capacity [Mass/ volume] in Serum or PlasmaOrdered By: Chivo Keller on 02-22-2024 Iron binding capacity [Mass/Vol] 281 ug/dL 255-450 [facility] Iron saturation [Mass Fracti on] in Serum or PlasmaOrdered By: Chivo Keller on 02-22-2024 Iron saturation [Mass fraction] 30.2 % 20-50 [facility] Leukocytes [#/volume] correc bonnie for nucleated erythrocytes in Blood by Automated counOrdered By: Chivo Keller on 02-22-2024 WBC corrected for nucl RBC Auto (Bld) [#/Vol] 7.5 10*3/uL 4.1-10.5 [facility] Leukocytes [#/volume] in Blo od by Automated countOrdered By: Chivo Keller on 02-22-2024 WBC (Bld) [#/Vol] 7.5 10*3/uL Normal 4.1-10.5 [facility] Comment on above: Performed By: #### V [id number], TONY, CMP, FE and TIBC, CBC #### [facility] [address] [place] [address] [place] #### SPE, KAPPA, LEXI SERUM #### [facility] , Lymphocytes [#/volume] in Bl ood by Automated countOrdered By: Chivo Keller on 02-22-2024 Lymphocytes (Bld) [#/Vol] 1.4 10*3/uL Normal 1.00-4.8 [facility] Comment on above: Performed By: #### V [id number], TONY, CMP, FE and TIBC, CBC #### [place] [address] [place] #### SPE, KAPPA, LEXI SERUM #### [facility] , Lymphocytes/100 leukocytes i n Blood by Automated countOrdered By: Chivo Keller on 02-22-2024 Lymphocytes/100 WBC (Bld) 19.1 % Normal . [facility] Comment on above: Performed By: #### V [id number], TONY, CMP, FE and TIBC, CBC #### [place] [address] [place] #### SPE, KAPPA, LXEI SERUM #### [facility] , MCH [Entitic mass] by Automa bonnie countOrdered By: Chivo Keller on 02-22-2024 MCH (RBC) [Entitic mass] 31.6 pg Normal 27.5-35.2 [facility] Comment on above: Performed By: #### V [id number], TONY, CMP, FE and TIBC, CBC #### [place] [address] [place] #### SPE, KAPPA, LEXI SERUM #### [facility] , MCHC Auto (RBC) [Mass/Vol]Or dered By: Chivo Keller on 02-22-2024 MCHC (RBC) [Mass/Vol] 33.9 g/dL 32.5-35.6 [facility] MCV [Entitic volume] by Auto mated countOrdered By: Chivo Keller on 02-22-2024 MCV (RBC) [Entitic vol] 93.2 fL Normal 83.5-101 [facility] Comment on above: Performed By: #### V [id number], TONY, CMP, FE and TIBC, CBC #### [place] [address] [place] #### SPE, KAPPA, LEXI SERUM #### [facility] , Neutrophils [#/volume] in Bl ood by Automated countOrdered By: Chivo Keller on 02-22-2024 Neutrophils (Bld) [#/Vol] 5.0 10*3/uL Normal 1.8-7.7 [facility] Comment on above: Performed By: #### V [id number], TONY, CMP, FE and TIBC, CBC #### [facility] [address] [place] [address] [place] #### SPE, KAPPA, LEXI SERUM #### [facility] , No Panel InformationOrdered By: Chivo Keller on 02-22-2024 Protein Electrophoresis M-Tobi Not observed g/dL Not Observed [facility] Protein Electrophoresis Note See comment . [facility] Comment on above: Protein electrophore sis scan will follow via computer,mail, or computer equipment installer delivery.Performed at: [address] Director: Nathan Munoz PhD, Phone: [phone] Serum Immunofixation See comment . [facility] Comment on above: No monoclonality det ected. Estimated GFR (CKD-EPI) 26.711 mL/Min [facility] Creatinine Clearance (Chem 29.06 [facility] Nucleated erythrocytes [Pres ence] in Blood by Automated countOrdered By: Chivo Keller on 02-22-2024 Nucleated RBC Auto Ql (Bld) 0.0 /100{WBC} 0-0.5 [facility] Platelet mean volume [Entiti c volume] in Blood by Automated countOrdered By: Chivo Keller on 02-22-2024 Platelet mean volume (Bld) [Entitic vol] 7.6 fL Normal 6.6-10.1 [facility] Comment on above: Performed By: #### V [id number], TONY, CMP, FE and TIBC, CBC #### [facility] [address] [place] [address] [place] #### SPE, KAPPA, LEXI SERUM #### [facility] , Platelets [#/volume] in Bloo d by Automated countOrdered By: Chivo Keller on 02-22-2024 Platelets (Bld) [#/Vol] 196 10*3/uL Normal 150-450 [facility] Comment on above: Performed By: #### V [id number], TONY, CMP, FE and TIBC, CBC #### [facility] [address] #### SPE, KAPPA, LEXI SERUM #### [facility] , Potassium [Moles/volume] in Serum or PlasmaOrdered By: Chivo Keller on 02-22-2024 Potassium [Moles/Vol] 3.8 mmol/L Normal 3.5-5.1 [facility] Comment on above: Performed By: #### V [id number], TONY, CMP, FE and TIBC, CBC #### [facility] [address] #### SPE, KAPPA, LEXI SERUM #### [facility] , Protein Electrophoresis, Ser umon 02-22-2024 Ptrei-4-Mshmdujh 0.2 g/dL Normal 0.0-0.4 [facility] Comment on above: Performed By: #### V [id number], TONY, CMP, FE and TIBC, CBC ####[address]#### SPE, KAPPA, LEXI SERUM ####[facility] , Anmdr-0-Mefqjbek 0.8 g/dL Normal 0.4-1.0 [facility] Comment on above: Performed By: #### V [id number], TONY, CMP, FE and TIBC, CBC ####[address] [place] [address] [place]#### SPE, KAPPA, LEXI SERUM ####[facility] , Beta Globulin 0.9 g/dL Normal 0.7-1.3 [facility] Comment on above: Performed By: #### V [id number], TONY, CMP, FE and TIBC, CBC ####[address] [place] [address] [place]#### SPE, KAPPA, LEXI SERUM ####[facility] , Gamma Globulin 1.0 g/dL Normal 0.4-1.8 [facility] Comment on above: Performed By: #### V [id number], TONY, CMP, FE and TIBC, CBC ####[address]#### SPE, KAPPA, LEXI SERUM ####[facility] , M-Tobi Not Observed Normal Not Observed [facility] Comment on above: Performed By: #### V [id number], TONY, CMP, FE and TIBC, CBC ####[address]#### SPE, KAPPA, LEXI SERUM ####[facility] , SPE-Note Normal . [facility] Comment on above: Result Comment: Prot ein electrophoresis scan will follow via computer, mail, or computer equipment installer delivery. Performed at: [facility] [address] [id number] Custom Grinder: Nathan Munoz PhD, Phone: [phone] Performed By: #### V [id number], TONY, CMP, FE and TIBC, CBC ####[address]#### SPE, KAPPA, LEXI SERUM ####[facility] , Protein [Mass/volume] in Ser um or PlasmaOrdered By: Chivo Keller on 02-22-2024 Protein [Mass/Vol] 6.8 g/dL Normal 6.0-8.5 [facility] Comment on above: Performed By: #### V [id number], TONY, CMP, FE and TIBC, CBC ####[place] [address] [place]#### SPE, KAPPA, LEXI SERUM ####[facility] , Protein [Mass/Vol] 7.4 g/dL Normal 6.4-8.9 [facility] Comment on above: Performed By: #### V [id number], TONY, CMP, FE and TIBC, CBC #### [address] #### SPE, KAPPA, LEXI SERUM #### [facility] , Serum globulin measurement ( mass/volume)Ordered By: Chivo Keller on 02-22-2024 Globulin (S) [Mass/Vol] 2.9 g/dL Normal 2.2-3.9 [facility] Comment on above: Performed By: #### V [id number], TONY, CMP, FE and TIBC, CBC ####[address]#### SPE, KAPPA, LEXI SERUM ####[facility] , Serum globulin measurement b y calculation (mass/volume)Ordered By: Chivo Keller on 02-22-2024 Globulin (S) [Mass/Vol] 3.0 g/dL Normal [facility] Comment on above: Performed By: #### V [id number], TONY, CMP, FE and TIBC, CBC #### [address] #### SPE, KAPPA, LEXI SERUM #### [facility] , Serum or plasma albumin/glob ulin mass ratioOrdered By: Chivo Keller on 02-22-2024 Albumin/Globulin [Mass ratio] 1.3 {ratio} Normal 0.7-1.7 [facility] Comment on above: Performed By: #### V [id number], TONY, CMP, FE and TIBC, CBC ####[place] [address] [place]#### SPE, KAPPA, LEXI SERUM ####[facility] , Albumin/Globulin [Mass ratio] 1.5 {ratio} Normal [facility] Comment on above: Performed By: #### V [id number], TONY, CMP, FE and TIBC, CBC #### [place] [address] [place] #### SPE, KAPPA, LEXI SERUM #### [facility] , Serum or plasma alpha 1 glob ulin measurement by electrophoresis (mass/volume)Ordered By: Chivo Keller on 02-22-2024 Alpha 1 globulin Elph [Mass/Vol] 0.2 g/dL 0.0-0.4 [facility] Serum or plasma alpha 2 glob ulin measurement by electrophoresis (mass/volume)Ordered By: Chivo Keller on 02-22-2024 Alpha 2 globulin Elph [Mass/Vol] 0.8 g/dL 0.4-1.0 [facility] Serum or plasma anion gap de terminationOrdered By: Chivo Keller on 02-22-2024 Anion gap [Moles/Vol] 10.6 mmol/L Normal 6.0-15.0 [facility] Comment on above: Performed By: #### V [id number], TONY, CMP, FE and TIBC, CBC #### [facility] [address] [place] [address] #### SPE, KAPPA, LEXI SERUM #### [facility] , Serum or plasma beta globuli n measurement by electrophoresis (mass/volume)Ordered By: Chivo Keller on 02-22-2024 Beta globulin Elph [Mass/Vol] 0.9 g/dL 0.7-1.3 [facility] Serum or plasma gamma globul in measurement by electrophoresis (mass/volume)Ordered By: Chivo Keller on 02-22-2024 Gamma globulin Elph [Mass/Vol] 1.0 g/dL 0.4-1.8 [facility] Sodium [Moles/volume] in Ser um or PlasmaOrdered By: Chivo Keller on 02-22-2024 Sodium [Moles/Vol] 140 mmol/L Normal 136-145 [facility] Comment on above: Performed By: #### V [id number], TONY, CMP, FE and TIBC, CBC #### [facility] [address] [place] [address] [place] #### SPE, KAPPA, LEXI SERUM #### [facility] , Transferrin [Mass/volume] in Serum or PlasmaOrdered By: Chivo Keller on 02-22-2024 Transferrin [Mass/Vol] 201 mg/dL Low 203-362 [facility] Comment on above: Performed By: #### V [id number], TONY, CMP, FE and TIBC, CBC #### [facility] [address] [place] [address] [place] #### SPE, KAPPA, LEXI SERUM #### [facility] , Urea nitrogen [Mass/volume] in Serum or PlasmaOrdered By: Chivo Keller on 02-22-2024 Urea nitrogen [Mass/Vol] 59 mg/dL High 7-25 [facility] Comment on above: Performed By: #### V [id number], TONY, CMP, FE and TIBC, CBC #### [place] [address] [place] #### SPE, KAPPA, LEXI SERUM #### [facility] , Vit. B12/Folate Profileon Folate 36.0 ng/mL Normal >5.9 [facility] Comment on above: Result Comment: Echo te reference range: >5.9 ng/ml The WHO technical consultation on folate and vitamin b12 deficiencies has determined that folate concentrations less than 4 ng/ml are considered deficient. PERFORMED BY: [place] [address] PATHOLOGIST GRIDDLE ATTENDANT TRU UMANZOR M.D. Performed By: #### V [id number], TONY, CMP, FE and TIBC, CBC #### [facility] [address] [place] [address] [place] #### SPE, KAPPA, LEXI SERUM #### [facility] , Vitamin B12 ser/plasOrdered By: Chivo Keller on 02-22-2024 Cobalamin (Vitamin B12) [Mass/Vol] 649 pg/mL Normal 180-914 [facility] Comment on above: Performed By: #### V [id number], TONY, CMP, FE and TIBC, CBC #### [facility] [address] #### SPE, KAPPA, LEXI SERUM #### [facility] , Automated urine specific gra vity by refractometryon 02-01-2024 Specific gravity Refractometry automated (U) [Rel density] 1.010 1.005-1.025 [facility] Bilirubin Auto test strip (U ) [Mass/Vol]on 02-01-2024 Bilirubin (U) [Mass/Vol] Negative NEGATIVE [facility] Color Auto (U)on 02-01-2024 Color (U) LT. YELLOW YELLOW [facility] Erythrocyte distribution wid th Auto (RBC) [Ratio]on 02-01-2024 Erythrocyte distribution width (RBC) [Ratio] 13.5 % 11.0-15.0 [facility] Estimated glomerular filtrat ion rate (GFR) non- Americanon 02-01-2024 GFR/1.73 sq M.predicted among non-blacks MDRD (S/P/Bld) [Vol rate/Area] 23 mL/min/{1.73_m2} Low >=60 [facility] Glucose [Mass/volume] in Uri ne by Test stripon 02-01-2024 Glucose Test strip (U) [Mass/Vol] Negative NEGATIVE [facility] Hematocrit Auto (Bld) [Volum e fraction]on 02-01-2024 Hematocrit (Bld) [Volume fraction] 37.0 % Low 42.0-54.0 [facility] Hemoglobin [Mass/volume] in Bloodon 02-01-2024 Hemoglobin (Bld) [Mass/Vol] 11.9 g/dL Low 14.0-18.0 [facility] Ketones Auto test strip (U) [Mass/Vol]on 02-01-2024 Ketones (U) [Mass/Vol] Negative NEGATIVE [facility] Laboratory - Chemistry and C hemistry - challengeon 02-01-2024 Calcium [Mass/Vol] 9.1 mg/dL 8.5-10.1 [facility] Chloride [Moles/Vol] 101 mmol/L 98-107 [facility] CO2 [Moles/Vol] 31.5 mmol/L 21.0-32.0 [facility] Creatinine [Mass/Vol] 2.66 mg/dL High 0.70-1.30 [facility] Free T4 [Mass/Vol] 1.03 ng/dL 0.76-1.46 [facility] GFR/1.73 sq M.predicted MDRD (S/P/Bld) [Vol rate/Area] 28 mL/min/{1.73_m2} Low >=60 [facility] Glucose [Mass/Vol] 128 mg/dL High 74-106 [facility] Magnesium [Mass/Vol] 2.4 mg/dL 1.8-2.4 [facility] Potassium [Moles/Vol] 3.8 mmol/L 3.5-5.1 [facility] Sodium [Moles/Vol] 141 mmol/L 136-145 [facility] TSH Qn 8.924 m[IU]/L High 0.358-3.740 [facility] Urea nitrogen [Mass/Vol] 55.0 mg/dL High 7.0-18.0 [facility] Urea nitrogen/Creatinine [Mass ratio] 20.7 mg/mg [facility] Laboratory - Urinalysison Protein (U) [Mass/Vol] 25.1 mg/dL High <=11.9 [facility] Leukocytes [#/volume] correc bonnie for nucleated erythrocytes in Blood by Automated counon 02-01-2024 WBC corrected for nucl RBC Auto (Bld) [#/Vol] 8.0 10 3/uL 4.0-11.0 [facility] MCH Auto (RBC) [Entitic mass ]on 02-01-2024 MCH (RBC) [Entitic mass] 30.9 pg 25.9-34.0 [facility] MCHC Auto (RBC) [Mass/Vol]on 02-01-2024 MCHC (RBC) [Mass/Vol] 32.2 g/dL 29.9-35.2 [facility] MCV Auto (RBC) [Entitic vol] on 02-01-2024 MCV (RBC) [Entitic vol] 96.1 fL High 80.0-94.0 [facility] No Panel Informationon 01-31 25-Hydroxy Vitamin D Total 94.2 ng/mL [facility] Comment on above: <20 ng/mL Vit D defi cient20-<30 ng/mL Vit D tspzekqjmarq97-064 ng/mL Vit D sufficient>100 ng/mL Potential Toxicity Parathyroid Hormone (Intact) 52 pg/mL 15-65 [facility] Comment on above: Performed at: [employer] [place], [place] [id number] Director: Nathan Munoz PhD, Phone: [phone] Phosphorus Level 4.1 mg/dL 2.6-4.7 [facility] Prostate Specific Antigen Screen 0.91 ng/mL <=4.00 [facility] Total Triiodothyronine 73 ng/dL 71-180 [facility] Comment on above: Performed at: [employer] [place], [place] [id number] Director: Nathan Munoz PhD, Phone: [employer] Urine Random Creatinine 77.24 mg/dL 20.00-300.0 0 [facility] Platelet mean volume Auto (B ld) [Entitic vol]on 02-01-2024 Platelet mean volume (Bld) [Entitic vol] 9.5 fL 9.5-13.5 [facility] Platelets Auto (Bld) [#/Vol] on 02-01-2024 Platelets (Bld) [#/Vol] 199 10 3/uL 150-450 [facility] Protein Auto test strip (U) [Mass/Vol]on 02-01-2024 Protein (U) [Mass/Vol] TRACE mg/dL NEG/TRACE [facility] RBC Auto (Bld) [#/Vol]on RBC (Bld) [#/Vol] 3.85 10 6/uL Low 4.70-6.10 [facility] Serum or plasma anion gap de terminationon 02-01-2024 Anion gap [Moles/Vol] 12.3 mmol/L [facility] Specific gravity Auto test s trip (U) [Rel density]on 02-01-2024 Specific gravity (U) [Rel density] CLEAR CLEAR [facility] Urine hemoglobin detection b y automated test stripon 02-01-2024 Hemoglobin Auto test strip Ql (U) Negative NEGATIVE [facility] Urine nitrite detection by a utomated test stripon 02-01-2024 Nitrite Auto test strip Ql (U) SMALL Abnormal NEGATIVE [facility] Nitrite Auto test strip Ql (U) Negative NEGATIVE [facility] Urine protein/creatinine rat ioon 02-01-2024 Protein/Creatinine (U) [Ratio] 0.32 [facility] Urobilinogen Auto test strip (U) [Mass/Vol]on 02-01-2024 Urobilinogen Qn (U) 0.2 {Jagruti'U}/dL 0.2-1.0 [facility] pH Auto test strip (U)on pH (U) 6.0 [pH] 5.0-9.0 [facility] Cholesterol in LDL Calc [Mas s/Vol]on 12-19-2023 Cholesterol in LDL [Mass/Vol] 81.8 mg/dL [facility] Comment on above: <100 mg/dl [id number] 0-129 mg/dl NEAR OR ABOVE [id number] mg/dl BORDERLINE [id number] mg/dl HIGH>190 mg/dl VERY HIGH Cholesterol in VLDL Calc [Ma ss/Vol]on 12-19-2023 Cholesterol in VLDL [Mass/Vol] 23.2 mg/dL [facility] Glucose mean value [Mass/vol ume] in Blood Estimated from glycated hemoglobinon 12-19-2023 Average glucose Estimated from glycated hemoglobin (Bld) [Mass/Vol] 137 mg/dL [facility] Laboratory - Chemistry and C hemistry - challengeon 12-19-2023 Cholesterol [Mass/Vol] 148 mg/dL <=200 [facility] Cholesterol in HDL [Mass/Vol] 43 mg/dL 40-60 [facility] Comment on above: > or =60 mg/dl - LOW CARDIOVASCULAR RISK<40 mg/dl - HIGH CARDIOVASCULAR RISK Free T4 [Mass/Vol] 1.04 ng/dL 0.76-1.46 [facility] Triglyceride [Mass/Vol] 116 mg/dL <=150 [facility] TSH Qn 11.812 m[IU]/L 0.358-3.740 [facility] Laboratory - Hematology and Cell countson 12-19-2023 HbA1c (Bld) [Mass fraction] 6.4 % 4.5-6.2 [facility] Comment on above: ADA RECOMMENDED LIMI T 4.0 - 6.0ADA THERAPEUTIC TARGET < 7.0ACTION SUGGESTED> 7.0 Serum or plasma total choles terol/high density lipoprotein (HDL) cholesterol mass ernesto 12-19-2023 Cholesterol.total/Choles terol in HDL [Mass ratio] 3.4 {ratio} [facility] Comment on above: 3.3 - 4.4 LOW RISK4. 4 - 7.1 AVERAGE RISK7.1 - 11.0 MODERATE RISK>11.0 HIGH RISK Alanine aminotransferase [En zymatic activity/volume] in Serum or PlasmaOrdered By: Leigha Omar on 08-30-2023 ALT [Catalytic activity/Vol] 20 U/L Normal 7-52 [facility] Comment on above: Performed By: #### C EA, CBC, FE and TIBC, CMP, TONY ####[facility] [id number] [place] [address] [place] Albumin [Mass/volume] in Ser um or Plasma by Bromocresol green (BCG) dye binding methoOrdered By: Leigha Omar on 08-30-2023 Albumin BCG dye [Mass/Vol] 4.4 g/dL 3.5-5.7 [facility] Alkaline phosphatase [Enzyma tic activity/volume] in Serum or PlasmaOrdered By: Leigha Omar on 08-30-2023 ALP [Catalytic activity/Vol] 114 U/L High 34-104 [facility] Comment on above: Performed By: #### C EA, CBC, FE and TIBC, CMP, TONY ####[facility] [id number] [place] [address] [place] Aspartate aminotransferase [ Enzymatic activity/volume] in Serum or PlasmaOrdered By: Leigha Omar on 08-30-2023 AST [Catalytic activity/Vol] 23 U/L Normal 13-39 [facility] Comment on above: Performed By: #### C EA, CBC, FE and TIBC, CMP, TONY ####[address] Automated basophil %Ordered By: Leigha Nelson on 08-30-2023 Basophils/100 WBC (Bld) 0.5 % Normal . [facility] Comment on above: Performed By: #### C EA, CBC, FE and TIBC, CMP, TONY ####[address] Automated basophil countOrde red By: Leigha Nelson on 08-30-2023 Basophils (Bld) [#/Vol] 0.0 10*3/uL Normal 0.0-0.2 [facility] Comment on above: Result Comment: PERF ORMED BY: [facility] [address] [place] [address] PATHOLOGIST GRIDDLE ATTENDANT TRU UMANZOR M.D. Performed By: #### C EA, CBC, FE and TIBC, CMP, TONY ####[address] Automated blood monocyte cou ntOrdered By: Leigha Bangurajimena on 08-30-2023 Monocytes (Bld) [#/Vol] 0.5 10*3/uL Normal 0.0-0.8 [facility] Comment on above: Performed By: #### C EA, CBC, FE and TIBC, CMP, TONY ####[address] Automated eosinophil %Ordere d By: Leigha Talamantesrenée on 08-30-2023 Eosinophils/100 WBC (Bld) 3.8 % Normal . [facility] Comment on above: Performed By: #### C EA, CBC, FE and TIBC, CMP, TONY ####[address] Automated eosinophil countOr dered By: Leigha Talamantesrenée on 08-30-2023 Eosinophils (Bld) [#/Vol] 0.3 10*3/uL Normal 0.0-0.45 [facility] Comment on above: Performed By: #### C EA, CBC, FE and TIBC, CMP, TONY ####[address] Automated monocyte %Ordered By: Leigha Omar on 08-30-2023 Monocytes/100 WBC (Bld) 7.9 % Normal . [facility] Comment on above: Performed By: #### C EA, CBC, FE and TIBC, CMP, TONY ####[address] Automated neutrophil %Ordere d By: Leigha Omar on 08-30-2023 Neutrophils/100 WBC (Bld) 65.9 % Normal . [facility] Comment on above: Performed By: #### C EA, CBC, FE and TIBC, CMP, TONY ####[address] Bilirubin.total [Mass/volume ] in Serum or PlasmaOrdered By: Leigha Omar on 08-30-2023 Bilirubin [Mass/Vol] 0.8 mg/dL Normal 0.3-1.0 [facility] Comment on above: Performed By: #### C EA, CBC, FE and TIBC, CMP, TONY ####[address] abdomen pelvis wo conon 1 10-30-2022 CT abdomen pelvis wo con [facility] [address] [place] [address] [place] [address] CT Scan Report Signed Patient: Nas Ren MR#: [id number] 24 : 1940 Acct:[id number] Age/Sex: 83 / M ADM Date: 08/30/23 Loc: XT Room: Type: [facility] RCR Attending Dr: Chivo Keller II DO Copies to: EDWARD Luke II, DO Ordering Provider: Leigha Nelson APRN Date of Service: 08/30/23 CT/CT chest wo con: surveillance ([id number]) CT/CT abdomen pelvis wo con: surveillance CT [...] 02/28/2023. Impression dictated by: Sotero Scott Jr., D.OKeo08/30/2023 1:10 PM Dictation Location: [place] [address] Transcribed By: [facility] 08/30/23 1310 Dictated By: Sotero Scott Jr, DO 08/30/23 1304 Signed By: 08/30/23 1310 Normal [facility] Calcium [Mass/volume] in Ser um or PlasmaOrdered By: Leigha Nelson on 08-30-2023 Calcium [Mass/Vol] 9.7 mg/dL Normal 8.6-10.3 [facility] Comment on above: Performed By: #### C EA, CBC, FE and TIBC, CMP, TONY ####[address] Carbon dioxide, total [Moles /volume] in Serum or PlasmaOrdered By: Leigha Nelson on 08-30-2023 CO2 [Moles/Vol] 35.5 mmol/L High 21.0-31.0 [facility] Comment on above: Performed By: #### C EA, CBC, FE and TIBC, CMP, TONY ####[address] Chloride [Moles/volume] in S alayna or PlasmaOrdered By: Leigha Nelson on 08-30-2023 Chloride [Moles/Vol] 102 mmol/L Normal 98-107 [facility] Comment on above: Performed By: #### C EA, CBC, FE and TIBC, CMP, TONY ####[address] Complete Blood Count Auto Di ffon 08-30-2023 Mean Corpuscular HGB Conc 33.3 g/dL Normal 32.5-35.6 [facility] Comment on above: Performed By: #### C EA, CBC, FE and TIBC, CMP, TONY ####[address] NRBC% 0.1 /100{WBC} Normal 0-0.5 [facility] Comment on above: Performed By: #### C EA, CBC, FE and TIBC, CMP, TONY ####[address] Comprehensive Metabolic Pane vijay 08-30-2023 Albumin [Mass/Vol] 4.4 g/dL Normal 3.5-5.7 [facility] Comment on above: Performed By: #### C EA, CBC, FE and TIBC, CMP, TONY ####[address] Creatinine Clr Calc Pharmacy 30.81 Normal [facility] Comment on above: Performed By: #### C EA, CBC, FE and TIBC, CMP, TONY ####[address] GFR/1.73 sq M.predicted MDRD (S/P/Bld) [Vol rate/Area] 27.976 mL/min/{1.73_m2} Normal [facility] Comment on above: Performed By: #### C EA, CBC, FE and TIBC, CMP, TONY ####[address] Creatinine [Mass/volume] in Serum or PlasmaOrdered By: Leigha Nelson on 08-30-2023 Creatinine [Mass/Vol] 2.29 mg/dL High 0.70-1.30 [facility] Comment on above: Performed By: #### C EA, CBC, FE and TIBC, CMP, TONY ####[address] Erythrocyte distribution wid th [Ratio] by Automated countOrdered By: Leigha Nelson on 08-30-2023 Erythrocyte distribution width (RBC) [Ratio] 14.8 % Normal 12.0-14.8 [facility] Comment on above: Performed By: #### C EA, CBC, FE and TIBC, CMP, TONY ####[address] Erythrocytes [#/volume] in B lood by Automated countOrdered By: Leigha Nelson on 08-30-2023 RBC (Bld) [#/Vol] 3.96 10*6/uL Normal 3.90-5.60 [facility] Comment on above: Performed By: #### C EA, CBC, FE and TIBC, CMP, TONY ####[address] Ferritin [Mass/volume] in Se rum or PlasmaOrdered By: Leigha Nelson on 08-30-2023 Ferritin [Mass/Vol] 239.3 ng/mL Normal 23.9-336.2 [facility] Comment on above: Result Comment: PERF ORMED BY: [facility] [address] [place] [id number] PATHOLOGIST GRIDDLE ATTENDANT TRU UMANZOR M.D. Performed By: #### C EA, CBC, FE and TIBC, CMP, TONY ####[place] [id number] [place] [id number] [facility] Glucose [Mass/volume] in Ser um or PlasmaOrdered By: Leigha Talamantesrenée on 08-30-2023 Glucose [Mass/Vol] 111 mg/dL High 70-100 [facility] Comment on above: ADA recommended refe rence rangeRandom Glucose Reference Range is dependent on time and content of last meal. Glucose of more than 200 mg/dL in a nonstressed, ambulatory subject supports the diagnosis of Diabetes Mellitus. Result Comment: [place] om Glucose Reference Range is dependent on time and content of last meal. Glucose of more than 200 mg/dL in a nonstressed, ambulatory subject supports the diagnosis of Diabetes Mellitus. ADA recommended reference range Performed By: #### C EA, CBC, FE and TIBC, CMP, TONY ####[place] [id number] [facility] Hematocrit [Volume Fraction] of Blood by Automated countOrdered By: Leigha Talamantesrenée on 08-30-2023 Hematocrit (Bld) [Volume fraction] 36.8 % Low 38.8-50.0 [facility] Comment on above: Performed By: #### C EA, CBC, FE and TIBC, CMP, TONY ####[place] [id number] [facility] Hemoglobin [Mass/volume] in BloodOrdered By: Leigha Omar on 08-30-2023 Hemoglobin (Bld) [Mass/Vol] 12.3 g/dL Low 13.0-17.0 [facility] Comment on above: Performed By: #### C EA, CBC, FE and TIBC, CMP, TONY ####[place] [id number] [facility] Iron [Mass/volume] in Serum or PlasmaOrdered By: Leigha Nelson on 08-30-2023 Iron [Mass/Vol] 84 ug/dL Normal 50-212 [facility] Comment on above: Performed By: #### C EA, CBC, FE and TIBC, CMP, TONY ####[facility] [id number] Iron and TIBC Profileon 08-16 % Iron Saturation 29.0 % Normal 20-50 [facility] Comment on above: Performed By: #### C EA, CBC, FE and TIBC, CMP, TONY ####[facility] [place] [id number] [facility] Total Iron Binding Capacity 290 ug/dL Normal 255-450 [facility] Comment on above: Performed By: #### C EA, CBC, FE and TIBC, CMP, TONY ####[place] [id number] Iron binding capacity [Mass/ volume] in Serum or PlasmaOrdered By: Leigha Nelson on 08-30-2023 Iron binding capacity [Mass/Vol] 290 ug/dL 255-450 [facility] Iron saturation [Mass Fracti on] in Serum or PlasmaOrdered By: Leigha Nelson on 08-30-2023 Iron saturation [Mass fraction] 29.0 % 20-50 [facility] Leukocytes [#/volume] correc bonnie for nucleated erythrocytes in Blood by Automated counOrdered By: Leigha Nelson on 08-30-2023 WBC corrected for nucl RBC Auto (Bld) [#/Vol] 7.0 10*3/uL 4.1-10.5 [facility] Leukocytes [#/volume] in Blo od by Automated countOrdered By: Leigha Nelson on 08-30-2023 WBC (Bld) [#/Vol] 7.0 10*3/uL Normal 4.1-10.5 [facility] Comment on above: Performed By: #### C EA, CBC, FE and TIBC, CMP, TONY ####[place] [id number] Lymphocytes [#/volume] in Bl ood by Automated countOrdered By: Leigha Talamantesrenée on 08-30-2023 Lymphocytes (Bld) [#/Vol] 1.5 10*3/uL Normal 1.00-4.8 [facility] Comment on above: Performed By: #### C EA, CBC, FE and TIBC, CMP, TONY ####[address] Lymphocytes/100 leukocytes i n Blood by Automated countOrdered By: Leigha Talamantesrenée on 08-30-2023 Lymphocytes/100 WBC (Bld) 21.9 % Normal . [facility] Comment on above: Performed By: #### C EA, CBC, FE and TIBC, CMP, TONY ####[address] MCH [Entitic mass] by Automa bonnie countOrdered By: Leigha Talamantesrenée on 08-30-2023 MCH (RBC) [Entitic mass] 30.9 pg Normal 27.5-35.2 [facility] Comment on above: Performed By: #### C EA, CBC, FE and TIBC, CMP, TONY ####[address] MCHC Auto (RBC) [Mass/Vol]Or dered By: Leigha Talamantesrenée on 08-30-2023 MCHC (RBC) [Mass/Vol] 33.3 g/dL 32.5-35.6 [facility] MCV [Entitic volume] by Auto mated countOrdered By: Leigha Talamantesrenée on 08-30-2023 MCV (RBC) [Entitic vol] 92.8 fL Normal 83.5-101 [facility] Comment on above: Performed By: #### C EA, CBC, FE and TIBC, CMP, TONY ####[address] Neutrophils [#/volume] in Bl ood by Automated countOrdered By: Leigha Talamantesrenée on 08-30-2023 Neutrophils (Bld) [#/Vol] 4.6 10*3/uL Normal 1.8-7.7 [facility] Comment on above: Performed By: #### C EA, CBC, FE and TIBC, CMP, TONY ####[address] No Panel InformationOrdered By: Leigha Nelson on 08-30-2023 Estimated GFR (CKD-EPI) 27.976 mL/Min [facility] Creatinine Clearance (Chem 30.81 [facility] Nucleated erythrocytes [Pres ence] in Blood by Automated countOrdered By: Leigha Nelson on 08-30-2023 Nucleated RBC Auto Ql (Bld) 0.1 /100{WBC} 0-0.5 [facility] Platelet mean volume [Entiti c volume] in Blood by Automated countOrdered By: Leigha Nelson on 08-30-2023 Platelet mean volume (Bld) [Entitic vol] 7.6 fL Normal 6.6-10.1 [facility] Comment on above: Performed By: #### C EA, CBC, FE and TIBC, CMP, TONY ####[address] Platelets [#/volume] in Bloo d by Automated countOrdered By: Leigha Nelson on 08-30-2023 Platelets (Bld) [#/Vol] 206 10*3/uL Normal 150-450 [facility] Comment on above: Performed By: #### C EA, CBC, FE and TIBC, CMP, TONY ####[address] Potassium [Moles/volume] in Serum or PlasmaOrdered By: Leigha Talamantesrenée on 08-30-2023 Potassium [Moles/Vol] 4.5 mmol/L Normal 3.5-5.1 [facility] Comment on above: Performed By: #### C EA, CBC, FE and TIBC, CMP, TONY ####[address] Protein [Mass/volume] in Ser um or PlasmaOrdered By: Leigha Talamantesrenée on 08-30-2023 Protein [Mass/Vol] 6.9 g/dL Normal 6.4-8.9 [facility] Comment on above: Performed By: #### C EA, CBC, FE and TIBC, CMP, TONY ####[address] Serum globulin measurement b y calculation (mass/volume)Ordered By: Leigha Talamantesrenée on 08-30-2023 Globulin (S) [Mass/Vol] 2.5 g/dL Normal [facility] Comment on above: Performed By: #### C EA, CBC, FE and TIBC, CMP, TONY ####[address] Serum or plasma albumin/glob ulin mass ratioOrdered By: Leigha Talamantesrenée on 08-30-2023 Albumin/Globulin [Mass ratio] 1.8 {ratio} Normal [facility] Comment on above: Performed By: #### C EA, CBC, FE and TIBC, CMP, TONY ####[address] Serum or plasma anion gap de terminationOrdered By: Leigha Talamantesrenée on 08-30-2023 Anion gap [Moles/Vol] 10.0 mmol/L Normal 6.0-15.0 [facility] Comment on above: Performed By: #### C EA, CBC, FE and TIBC, CMP, TONY ####[address] Serum or plasma carcinoembry onic antigen measurement (mass/volume)Ordered By: Leigha Talamantesrenée on 08-30-2023 Carcinoembryonic Ag [Mass/Vol] 2.1 ng/mL 0.0-3.0 [facility] Sodium [Moles/volume] in Ser um or PlasmaOrdered By: Leigha Talamantesrenée on 08-30-2023 Sodium [Moles/Vol] 143 mmol/L Normal 136-145 [facility] Comment on above: Performed By: #### C EA, CBC, FE and TIBC, CMP, TONY ####[address] Transferrin [Mass/volume] in Serum or PlasmaOrdered By: Leigha Omar on 08-30-2023 Transferrin [Mass/Vol] 207 mg/dL Normal 203-362 [facility] Comment on above: Performed By: #### C EA, CBC, FE and TIBC, CMP, TONY ####[facility] [id number] [place] [address] [facility] Urea nitrogen [Mass/volume] in Serum or PlasmaOrdered By: Leigha Nelson on 08-30-2023 Urea nitrogen [Mass/Vol] 51 mg/dL High 7-25 [facility] Comment on above: Performed By: #### C EA, CBC, FE and TIBC, CMP, TONY ####[facility] [id number] [place] [address] [facility] ECHOCARDIO M/2D COMPLETEon 0 02-28-2023 ECHOCARDIO M/2D COMPLETE Patient: NAS REN Exam Date: 02/28/2023 : 1940 Gender:M 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 Order #: [id number] CLICK HERE TO VIEW EXAM ECHOCARDIOGRAM REPORT [...] Ortiz M.D. on 02/28/2023 at 20:26 Normal [facility] T3, TOTAL (TRIIODOTHYRONINE) on 02-16-2023 T3, TOTAL 83 ng/dL Normal 71-180 [facility] Comment on above: Performed By: #### F T4, PSASC #### [facility] [address] [place] [address] Dr. Benito Schwartz FREE T4on 02-15-2023 Free T4 [Mass/Vol] 1.03 ng/dL Normal 0.76-1.46 [facility] Comment on above: Performed By: #### F T4 #### [facility] [address] [place] [address] Dr. Benito Schwartz LIPID PROFILEon 02-15-2023 CHOL-HDL RATIO NORM SEE BELOW Normal [facility] Comment on above: Result Comment: 3.3 - 4.4 LOW RISK 4.4 - 7.1 AVERAGE RISK 7.1 - 11.0 MODERATE RISK >11.0 HIGH RISK Performed By: #### T SH, FT3, BMP #### [facility] [address] [place] [address] Dr. Benito Schwartz Cholesterol [Mass/Vol] 164 mg/dL Normal <=[address] [facility] Comment on above: Performed By: #### T SH, FT3, BMP #### [facility] [address] [place] [address] Dr. Benito Schwartz Cholesterol in HDL [Mass/Vol] 41 mg/dL Normal 40-60 [facility] Comment on above: Performed By: #### T SH, FT3, BMP #### [facility] [address] [place] [address] Dr. Benito Schawrtz Cholesterol in LDL [Mass/Vol] 104.2 mg/dL Normal [facility] Comment on above: Performed By: #### T SH, FT3, BMP #### [facility] [address] [place] [address] Dr. Benito Schwartz Cholesterol.total/Choles terol in HDL [Mass ratio] 4.0 {ratio} Normal [facility] Comment on above: Performed By: #### T SH, FT3, BMP #### [facility] [address] [place] [address] Dr. Benito Schwartz HDL NORMAL > or = 60 mg/dl - LOW CARDIOVASCULAR RISK <40 mg/dl - HIGH CARDIOVASCULAR RISK Normal [facility] Comment on above: Performed By: #### T SH, FT3, BMP #### [facility] [address] [place] [address] Dr. Benito Schwartz LDL CALC NORMAL SEE BELOW Normal [facility] Comment on above: Result Comment: <100 mg/dl OPTIMAL 100 - 129 mg/dl NEAR OR ABOVE OPTIMAL 130 - 159 mg/dl BORDERLINE HIGH 160 - 189 mg/dl HIGH >190 mg/dl VERY HIGH Performed By: #### T SH, FT3, BMP #### [facility] [address] [place] [address] Dr. Benito Schwartz Triglyceride [Mass/Vol] 94 mg/dL Normal <=150 [facility] Comment on above: Performed By: #### T SH, FT3, BMP #### [facility] [address] [place] [address] Dr. Benito Schwartz VLDL CALC 18.8 mg/dL Normal [facility] Comment on above: Performed By: #### T SH, FT3, BMP #### [facility] [address] [place] [address] Dr. Benito Schwartz TSHon 02-15-2023 TSH 22.732 uIU/mL Critically high 0.358-3.740 [facility] Comment on above: Performed By: #### F T4, PSASC #### [facility] [address] [place] [address] Dr. Benito Schwartz PTH INTACTon 01-03-2023 PTH, Intact 46 pg/mL Normal 15-65 [facility] Comment on above: Performed By: #### U RTPCR #### [facility] [address] [place] [address] Dr. Benito Schwartz T3, TOTAL (TRIIODOTHYRONINE) on 01-03-2023 T3, TOTAL 77 ng/dL Normal 71-180 [facility] Comment on above: Performed By: #### T SH, FT3, BMP #### [facility] [address] [place] [address] Dr. Benito Schwartz CBC AUTO DIFFon 01-02-2023 BASO # 0.0 103/ul Normal 0.0-0.1 [facility] Comment on above: Performed By: #### C BC #### [facility] [address] [place] [address] Dr. Benito Schwartz Basophils/100 WBC (Bld) 0.4 % Normal 0.2-2.0 [facility] Comment on above: Performed By: #### C BC #### [facility] [address] [place] [address] Dr. Benito Schwartz EO # 0.4 103/ul Normal 0.0-0.7 [facility] Comment on above: Performed By: #### C BC #### [facility] [address] [place] [address] Dr. Benito Schwartz Eosinophils/100 WBC (Bld) 5.1 % Normal 0.9-7.0 [facility] Comment on above: Performed By: #### C BC #### [facility] [address] [place] [address] Dr. Benito Schwartz Erythrocyte distribution width (RBC) [Ratio] 13.2 % Normal 11.0-15.0 [facility] Comment on above: Performed By: #### C BC #### [facility] [address] [place] [address] Dr. Benito Schwartz Hematocrit (Bld) [Volume fraction] 37.4 % Critically low 42.0-54.0 [facility] Comment on above: Performed By: #### C BC #### [facility] [address] [place] [address] Dr. Benito Schwartz Hemoglobin (Bld) [Mass/Vol] 12.4 g/dL Critically low 14.0-18.0 [facility] Comment on above: Performed By: #### C BC #### [facility] [address] [place] [address] [address] Benito Schwartz IG # 0.03 10e3/ul Normal 0.00-0.03 [facility] Comment on above: Performed By: #### C BC #### [facility] [address] [place] [address] [address] Benito Schwartz IG % 0.4 % Normal 0.0-0.5 [facility] Comment on above: Performed By: #### C BC #### [facility] [address] [place] [address] Dr. Benito Schwartz LYMPH # 1.6 103/ul Normal 1.2-3.8 [facility] Comment on above: Performed By: #### C BC #### [facility] [address] [place] [address] Dr. Benito Schwartz Lymphocytes/100 WBC (Bld) 20.3 % Critically low 20.5-60.0 [facility] Comment on above: Performed By: #### C BC #### [facility] [address] [place] [address] Dr. Benito Schwartz MANUAL DIFF REQ NO Normal [facility] Comment on above: Performed By: #### C BC #### [facility] [address] [place] [address] Dr. Benito Schwartz MCH (RBC) [Entitic mass] 31.7 pg Normal 25.9-34.0 [facility] Comment on above: Performed By: #### C BC #### [facility] [address] [place] [address] Dr. Benito Schwartz MCHC (RBC) [Mass/Vol] 33.2 g/dL Normal 29.9-35.2 [facility] Comment on above: Performed By: #### C BC #### [facility] [address] [place] [address] Dr. Benito Schwartz MCV (RBC) [Entitic vol] 95.7 fL Critically high 80.0-94 .0 [facility] Comment on above: Performed By: #### C BC #### [facility] [address] [place] [address] [address] Benito Schwartz MONO # 0.7 103/ul Normal 0.3-0.8 [facility] Comment on above: Performed By: #### C BC #### [facility] [address] [place] [address] Dr. Benito Schwartz Monocytes/100 WBC (Bld) 8.6 % Normal 1.7-12.0 [facility] Comment on above: Performed By: #### C BC #### [facility] [address] [place] [address] Dr. Benito Schwartz NEUT # 5.3 103/ul Normal 1.4-6.5 [facility] Comment on above: Performed By: #### C BC #### [facility] [address] [place] [address] Dr. Benito Schwartz Neutrophils/100 WBC (Bld) 65.2 % Normal 43.0-75.0 [facility] Comment on above: Performed By: #### C BC #### [facility] [address] [place] [address] Dr. Benito Schwartz Platelet mean volume (Bld) [Entitic vol] 9.0 fL Critically low 9.5-13.5 [facility] Comment on above: Performed By: #### C BC #### [facility] [address] [place] [address] Dr. Benito Schwartz PLT 209 103/ul Normal 150-450 [facility] Comment on above: Performed By: #### C BC #### [facility] [address] [place] [address] Dr. Benito Schwartz RBC 3.91 106/ul Critically low 4.70-6.10 [facility] Comment on above: Performed By: #### C BC #### [facility] [address] [place] [address] Dr. Benito Schwartz WBC 8.1 103/ul Normal 4.0-11.0 [facility] Comment on above: Performed By: #### C BC #### [facility] [address] [place] [address] Dr. Benito Schwartz FREE T4on 01-02-2023 Free T4 [Mass/Vol] 0.87 ng/dL Normal 0.76-1.46 [facility] Comment on above: Performed By: #### F T4, PSASC #### [facility] [address] [place] [address] Dr. Benito Schwartz GLYCOHEMOGLOBIN A1Con 2022 ADA RECOMMENDATION SEE BELOW Normal [facility] Comment on above: Result Comment: ADA RECOMMENDED LIMIT 4.0 - 6.0 ADA THERAPEUTIC TARGET < 7.0 ACTION SUGGESTED > 7.0 Performed By: #### C BC #### [facility] [address] [place] [address] Dr. Benito Schwartz Glucose [Mass/Vol] 126 mg/dL Normal [facility] Comment on above: Performed By: #### C BC #### [facility] [address] [place] [address] Dr. Benito Schwartz HbA1c (Bld) [Mass fraction] 6.0 % Normal 4.5-6.2 [facility] Comment on above: Performed By: #### C BC #### [facility] [address] [place] [address] Dr. Benito Schwartz MAGNESIUMon 01-02-2023 Magnesium [Mass/Vol] 2.3 mg/dL Normal 1.8-2.4 [facility] Comment on above: Performed By: #### U RTPCR #### [facility] [address] [place] [address] Dr. Benito Schwartz PHOSPHORUSon 01-02-2023 Phosphate [Mass/Vol] 4.1 mg/dL Normal 2.6-4.7 [facility] Comment on above: Performed By: #### U RTPCR #### [facility] [address] [place] [address] Dr. Benito Schwartz PROF CHEM 8 (BAS METB)on Anion gap [Moles/Vol] 11.1 mmol/L Normal [facility] Comment on above: Performed By: #### U RTPCR #### [facility] [address] [place] [address] Dr. Benito Schwartz Calcium [Mass/Vol] 8.9 mg/dL Normal 8.5-10.1 [facility] Comment on above: Performed By: #### U RTPCR #### [facility] [address] [address] [address] Bentio Schwartz Chloride [Moles/Vol] 100 mmol/L Normal 98-107 [facility] Comment on above: Performed By: #### U RTPCR #### [facility] [address] [address] [address] Benito Schwartz CO2 [Moles/Vol] 33.2 mmol/L Critically high 21.0-32.0 [facility] Comment on above: Performed By: #### U RTPCR #### [facility] [address] [place] [address] Dr. Benito Schwartz Creatinine [Mass/Vol] 2.31 mg/dL Critically high 0.70-1.30 [facility] Comment on above: Performed By: #### U RTPCR #### [facility] [address] [address] [address] Benito Schwartz EGFR-AF PARAGUAYAN 33 mL/min/1.73m2 Critically low >=60 [facility] Comment on above: Performed By: #### U RTPCR #### [facility] [address] [place] [address] Dr. Benito Schwartz EGFR-NON AF PARAGUAYAN 27 mL/min/1.73m2 Critically low >=60 [facility] Comment on above: Performed By: #### U RTPCR #### [facility] [address] [address] [address] Benito Schwartz Glucose [Mass/Vol] 112 mg/dL Critically high 74-106 [facility] Comment on above: Performed By: #### U RTPCR #### [facility] [address] [place] [address] Dr. Benito Schwartz Potassium [Moles/Vol] 4.3 mmol/L Normal 3.5-5.1 [facility] Comment on above: Performed By: #### U RTPCR #### [facility] [address] [place] [address] Dr. Benito Schwartz Sodium [Moles/Vol] 140 mmol/L Normal 136-145 [facility] Comment on above: Performed By: #### U RTPCR #### [facility] [address] [place] [address] Dr. Benito Schwartz Urea nitrogen [Mass/Vol] 51.0 mg/dL Critically high 7.0-18 .0 [facility] Comment on above: Performed By: #### U RTPCR #### [facility] [address] [place] [address] Dr. Benito Schwartz Urea nitrogen/Creatinine [Mass ratio] 22.1 mg/mg Normal [facility] Comment on above: Performed By: #### U RTPCR #### [facility] [address] [place] [address] Dr. Benito Schwartz TSHon 01-02-2023 TSH 27.692 uIU/mL Critically high 0.358-3.740 [facility] Comment on above: Performed By: #### C BC #### [facility] [address] [place] [address] Dr. Benito Schwartz UA RANDOMon 01-02-2023 Bilirubin Ql (U) Negative Normal NEGATIVE [facility] Comment on above: Performed By: #### U RTPCR #### [facility] [address] [place] [address] Dr. Benito Schwartz Clarity (U) CLEAR Normal CLEAR [facility] Comment on above: Performed By: #### U RTPCR #### [facility] [address] [place] [address] Dr. Benito Schwartz Color (U) LT. YELLOW Normal YELLOW [facility] Comment on above: Performed By: #### U RTPCR #### [facility] [address] [place] [address] Dr. Benito Schwartz Glucose Ql (U) Negative Normal NEGATIVE [facility] Comment on above: Performed By: #### U RTPCR #### [facility] [address] [place] [address] Dr. Benito Schwartz Hemoglobin Ql (U) Negative Normal NEGATIVE [facility] Comment on above: Performed By: #### U RTPCR #### [facility] [address] [place] [address] Dr. Benito Schwartz Ketones Ql (U) Negative Normal NEGATIVE [facility] Comment on above: Performed By: #### U RTPCR #### [facility] [address] [place] [address] Dr. Benito Schwartz LEUKOCYTES Negative Normal NEGATIVE [facility] Comment on above: Performed By: #### U RTPCR #### [facility] [address] [place] [address] Dr. Benito Schwartz Nitrite Ql (U) Negative Normal NEGATIVE [facility] Comment on above: Performed By: #### U RTPCR #### [facility] [address] [place] [address] Dr. Benito Schwartz pH (U) 6.0 [pH] Normal 5-9 [facility] Comment on above: Performed By: #### U RTPCR #### [facility] [address] [place] [address] Dr. Benito Schwartz SPEC GRAVITY <=1.005 Abnormal 1.005-<=1.02 5 [facility] Comment on above: Performed By: #### U RTPCR #### [facility] [address] [place] [address] Dr. Benito Schwartz UA PROTEIN Negative Normal NEGATIVE/ TRACE [facility] Comment on above: Performed By: #### U RTPCR #### [facility] [address] [place] [address] Dr. Benito Schwartz Urobilinogen Qn (U) 0.2 {Jagruti'U}/dL Normal 0.2 - 1. 0 [facility] Comment on above: Performed By: #### U RTPCR #### [facility] [address] [place] [address] Dr. Benito Schwartz URINE T PROTEIN CREAT RATIOo n 01-02-2023 Protein (U) [Mass/Vol] 19.1 mg/dL Critically high <=12.0 [facility] Comment on above: Performed By: #### F T4, PSASC #### [facility] [address] [place] [address] Dr. Benito Schwartz UR PROT CREAT RAT 0.75 Normal [facility] Comment on above: Performed By: #### F T4, PSASC #### [facility] [address] [place] [address] Dr. Benito Schwartz URINE CREAT 25.63 mg/dL Normal 20.00-300.00 [facility] Comment on above: Performed By: #### F T4, PSASC #### [facility] [address] [place] [address] Dr. Benito Schwartz VITAMIN D 25 OHon 01-02-2023 VIT D 25-OH 86.8 ng/mL Normal [facility] Comment on above: Performed By: #### U RTPCR #### [facility] [address] [place] [address] Dr. Benito Schwartz VIT D RANGES SEE BELOW Normal [facility] Comment on above: Result Comment: <20 ng/mL Vit D deficient 20 - <30 ng/mL Vit D insufficient 30 - 100 ng/mL Vit D sufficient >100 ng/mL Potential Toxicity Performed By: #### U RTPCR #### [facility] [address] [place] [address] Dr. Benito Schwartz T3, TOTAL (TRIIODOTHYRONINE) on 11-17-2022 T3, TOTAL 82 ng/dL Normal 71-180 [facility] Comment on above: Performed By: #### V ITAD #### [facility] [address] [place] [address] Dr. Benito Schwartz FREE T4on 11-16-2022 Free T4 [Mass/Vol] 0.93 ng/dL Normal 0.76-1.46 [facility] Comment on above: Performed By: #### C BC #### [facility] [address] [place] [address] Dr. Benito Schwartz TSHon 11-16-2022 TSH 31.189 uIU/mL Critically high 0.358-3.740 [facility] Comment on above: Performed By: #### F T4, PSASC #### [facility] [address] [place] [address] Dr. Benito Schwartz T3, TOTAL (TRIIODOTHYRONINE) on 10-04-2022 T3, TOTAL 43 ng/dL Critically low 71-180 [facility] Comment on above: Performed By: #### F T4, PSASC #### [facility] [address] [place] [address] Dr. Benito Schwartz FREE T4on 10-03-2022 Free T4 [Mass/Vol] 0.35 ng/dL Critically low 0.76-1.[address] [facility] Comment on above: Performed By: #### F T4, PSASC #### [facility] [address] [place] [address] Dr. Benito Schwartz TSHon 10-03-2022 TSH 121.174 uIU/mL Critically high 0.358-3.740 [facility] Comment on above: Performed By: #### F T4, PSASC #### [facility] [address] [place] [address] Dr. Benito Schwartz MAGNESIUMon 09-22-2022 Magnesium [Mass/Vol] 2.5 mg/dL Critically high 1.8-2.4 [facility] Comment on above: Performed By: #### F T4 #### [facility] [address] [place] [address] Dr. Benito Schwartz PROF CHEM 8 (BAS METB)on Anion gap [Moles/Vol] 7.3 mmol/L Normal [facility] Comment on above: Performed By: #### F T4 #### [facility] [address] [place] [address] Dr. Benito Schwartz Calcium [Mass/Vol] 8.8 mg/dL Normal 8.5-10.1 [facility] Comment on above: Performed By: #### F T4 #### [facility] [address] [place] [address] Dr. Benito Schwartz Chloride [Moles/Vol] 100 mmol/L Normal 98-107 [facility] Comment on above: Performed By: #### F T4 #### [facility] [address] [place] [address] Dr. Benito Schwartz CO2 [Moles/Vol] 33.7 mmol/L Critically high 21.0-32.0 [facility] Comment on above: Performed By: #### F T4 #### [facility] [address] [address] [address] Benito Schwartz Creatinine [Mass/Vol] 2.43 mg/dL Critically high 0.70-1.30 [facility] Comment on above: Performed By: #### F T4 #### [facility] [address] [address] [address] Benito Schwartz EGFR-AF PARAGUAYAN 31 mL/min/1.73m2 Critically low >=60 [facility] Comment on above: Performed By: #### F T4 #### [facility] [address] [address] [address] Benito Schwartz EGFR-NON AF PARAGUAYAN 26 mL/min/1.73m2 Critically low >=60 [facility] Comment on above: Performed By: #### F T4 #### [facility] [address] [address] [address] Benito Schwartz Glucose [Mass/Vol] 136 mg/dL Critically high 74-106 [facility] Comment on above: Performed By: #### F T4 #### [facility] [address] [address] [address] Benito Schwartz Potassium [Moles/Vol] 4.0 mmol/L Normal 3.5-5.1 [facility] Comment on above: Performed By: #### F T4 #### [facility] [address] [address] [address] Benito Schwartz Sodium [Moles/Vol] 137 mmol/L Normal 136-145 [facility] Comment on above: Performed By: #### F T4 #### [facility] [address] [address] [address] Benito Schwartz Urea nitrogen [Mass/Vol] 47.0 mg/dL Critically high 7.0-18 .0 [facility] Comment on above: Performed By: #### F T4 #### [facility] [address] [address] [address] Benito Schwartz Urea nitrogen/Creatinine [Mass ratio] 19.3 mg/mg Normal [facility] Comment on above: Performed By: #### F T4 #### [facility] [address] [place] [address] Dr. Benito Schwartz PTH INTACTon 09-10-2022 PTH, Intact 36 pg/mL Normal 15-65 [facility] Comment on above: Performed By: #### F T4, PSASC #### [facility] [address] [place] [address] Dr. Benito Schwartz CBC AUTO DIFFon 09-09-2022 BASO # 0.0 103/ul Normal 0.0-0.1 [facility] Comment on above: Performed By: #### F T4, PSASC #### [facility] [address] [place] [address] Dr. Benito Schwartz Basophils/100 WBC (Bld) 0.5 % Normal 0.2-2.0 [facility] Comment on above: Performed By: #### F T4, PSASC #### [facility] [address] [place] [address] Dr. Benito Schwartz EO # 0.4 103/ul Normal 0.0-0.7 [facility] Comment on above: Performed By: #### F T4, PSASC #### [facility] [address] [place] [address] Dr. Benito Schwartz Eosinophils/100 WBC (Bld) 5.3 % Normal 0.9-7.0 [facility] Comment on above: Performed By: #### F T4, PSASC #### [facility] [address] [place] [address] Dr. Benito Schwartz Erythrocyte distribution width (RBC) [Ratio] 14.3 % Normal 11.0-15.0 [facility] Comment on above: Performed By: #### F T4, PSASC #### [facility] [address] [place] [address] Dr. Benito Schwartz Hematocrit (Bld) [Volume fraction] 36.9 % Critically low 42.0-54.0 [facility] Comment on above: Performed By: #### F T4, PSASC #### [facility] [address] [place] [address] Dr. Benito Schwartz Hemoglobin (Bld) [Mass/Vol] 12.4 g/dL Critically low 14.0-18.0 [facility] Comment on above: Performed By: #### F T4, PSASC #### [facility] [address] [place] [address] Dr. Benito Schwartz IG # 0.04 10e3/ul Critically high 0.00-0.03 [facility] Comment on above: Performed By: #### F T4, PSASC #### [facility] [address] [place] [address] Dr. Benito Schwartz IG % 0.5 % Normal 0.0-0.5 [facility] Comment on above: Performed By: #### F T4, PSASC #### [facility] [address] [place] [address] Dr. Benito Schwartz LYMPH # 1.6 103/ul Normal 1.2-3.8 [facility] Comment on above: Performed By: #### F T4, PSASC #### [facility] [address] [place] [address] Dr. Benito Schwartz Lymphocytes/100 WBC (Bld) 22.2 % Normal 20.5-60.0 [facility] Comment on above: Performed By: #### F T4, PSASC #### [facility] [address] [place] [address] Dr. Benito Schwartz MANUAL DIFF REQ NO Normal [facility] Comment on above: Performed By: #### F T4, PSASC #### [facility] [address] [place] [address] Dr. Benito Schwartz MCH (RBC) [Entitic mass] 31.2 pg Normal 25.9-34.0 [facility] Comment on above: Performed By: #### F T4, PSASC #### [facility] [address] [place] [address] Dr. Benito Schwartz MCHC (RBC) [Mass/Vol] 33.6 g/dL Normal 29.9-35.2 [facility] Comment on above: Performed By: #### F T4, PSASC #### [facility] [address] [address] [address] Benito Schwartz MCV (RBC) [Entitic vol] 92.7 fL Normal 80.0-94.0 [facility] Comment on above: Performed By: #### F T4, PSASC #### [facility] [address] [place] [address] Dr. Benito Schwartz MONO # 0.5 103/ul Normal 0.3-0.8 [facility] Comment on above: Performed By: #### F T4, PSASC #### [facility] [address] [place] [address] Dr. Benito Schwartz Monocytes/100 WBC (Bld) 6.4 % Normal 1.7-12.0 [facility] Comment on above: Performed By: #### F T4, PSASC #### [facility] [address] [place] [address] Dr. Benito Schwartz NEUT # 4.8 103/ul Normal 1.4-6.5 [facility] Comment on above: Performed By: #### F T4, PSASC #### [facility] [address] [place] [address] Dr. Benito Schwartz Neutrophils/100 WBC (Bld) 65.1 % Normal 43.0-75.0 [facility] Comment on above: Performed By: #### F T4, PSASC #### [facility] [address] [place] [address] Dr. Benito Schwartz Platelet mean volume (Bld) [Entitic vol] 8.7 fL Critically low 9.5-13.5 [facility] Comment on above: Performed By: #### F T4, PSASC #### [facility] [address] [place] [address] Dr. Benito Schwartz PLT 206 103/ul Normal 150-450 [facility] Comment on above: Performed By: #### F T4, PSASC #### [facility] [address] [place] [address] Dr. Benito Schwartz RBC 3.98 106/ul Critically low 4.70-6.10 [facility] Comment on above: Performed By: #### F T4, PSASC #### [facility] [address] [place] [address] Dr. Benito Schwartz WBC 7.4 103/ul Normal 4.0-11.0 [facility] Comment on above: Performed By: #### F T4, PSASC #### [facility] [address] [place] [address] Dr. Benito Schwartz MAGNESIUMon 09-09-2022 Magnesium [Mass/Vol] 2.1 mg/dL Normal 1.8-2.4 [facility] Comment on above: Performed By: #### B 12FOL, FETIBC #### [facility] [address] [place] [address] Dr. Benito Schwartz PHOSPHORUSon 09-09-2022 Phosphate [Mass/Vol] 3.2 mg/dL Normal 2.6-4.7 [facility] Comment on above: Performed By: #### B 12FOL, FETIBC #### [facility] [address] [place] [address] Dr. Benito Schwartz PROF CHEM 8 (BAS METB)on Anion gap [Moles/Vol] 10.1 mmol/L Normal [facility] Comment on above: Performed By: #### B 12FOL, FETIBC #### [facility] [address] [place] [address] Dr. Benito Schwartz Calcium [Mass/Vol] 9.3 mg/dL Normal 8.5-10.1 [facility] Comment on above: Performed By: #### B 12FOL, FETIBC #### [facility] [address] [place] [address] Dr. Benito Schwartz Chloride [Moles/Vol] 99 mmol/L Normal 98-107 [facility] Comment on above: Performed By: #### B 12FOL, FETIBC #### [facility] [address] [place] [address] Dr. Benito Schwartz CO2 [Moles/Vol] 32.4 mmol/L Critically high 21.0-32.0 [facility] Comment on above: Performed By: #### B 12FOL, FETIBC #### [facility] [address] [address] [address] Benito Schwartz Creatinine [Mass/Vol] 2.77 mg/dL Critically high 0.70-1.30 [facility] Comment on above: Performed By: #### B 12FOL, FETIBC #### [facility] [address] [place] [address] Dr. Benito Schwartz EGFR-AF PARAGUAYAN 27 mL/min/1.73m2 Critically low >=60 [facility] Comment on above: Performed By: #### B 12FOL, FETIBC #### [facility] [address] [place] [address] Dr. Benito Schwartz EGFR-NON AF PARAGUAYAN 22 mL/min/1.73m2 Critically low >=60 [facility] Comment on above: Performed By: #### B 12FOL, FETIBC #### [facility] [address] [address] [address] Benito Schwartz Glucose [Mass/Vol] 166 mg/dL Critically high 74-106 [facility] Comment on above: Performed By: #### B 12FOL, FETIBC #### [facility] [address] [place] [address] Dr. Benito Schwartz Potassium [Moles/Vol] 3.5 mmol/L Normal 3.5-5.1 [facility] Comment on above: Performed By: #### B 12FOL, FETIBC #### [facility] [address] [place] [address] Dr. Benito Schwartz Sodium [Moles/Vol] 138 mmol/L Normal 136-145 [facility] Comment on above: Performed By: #### B 12FOL, FETIBC #### [facility] [address] [place] [address] Dr. Benito Schwartz Urea nitrogen [Mass/Vol] 50.0 mg/dL Critically high 7.0-18 .0 [facility] Comment on above: Performed By: #### B 12FOL, FETIBC #### [facility] [address] [address] [address] Benito Schwartz Urea nitrogen/Creatinine [Mass ratio] 18.1 mg/mg Normal [facility] Comment on above: Performed By: #### B 12FOL, FETIBC #### [facility] [address] [address] [address] Benito Schwartz UA RANDOMon 09-09-2022 Bilirubin Ql (U) Negative Normal NEGATIVE [facility] Comment on above: Performed By: #### V ITAD #### [facility] [address] [place] [address] Dr. Benito Schwartz Clarity (U) CLEAR Normal CLEAR [facility] Comment on above: Performed By: #### V ITAD #### [facility] [address] [place] [address] Dr. Benito Schwartz Color (U) LT. YELLOW Normal YELLOW [facility] Comment on above: Performed By: #### V ITAD #### [facility] [address] [place] [address] Dr. Benito Schwartz Glucose Ql (U) Negative Normal NEGATIVE [facility] Comment on above: Performed By: #### V ITAD #### [facility] [address] [place] [address] Dr. Benito Schwartz Hemoglobin Ql (U) Negative Normal NEGATIVE [facility] Comment on above: Performed By: #### V ITAD #### [facility] [address] [place] [address] Dr. Benito Schwartz Ketones Ql (U) Negative Normal NEGATIVE [facility] Comment on above: Performed By: #### V ITAD #### [facility] [address] [place] [address] Dr. Benito Schwartz LEUKOCYTES Negative Normal NEGATIVE [facility] Comment on above: Performed By: #### V ITAD #### [facility] [address] [place] [address] Dr. Benito Schwartz Nitrite Ql (U) Negative Normal NEGATIVE [facility] Comment on above: Performed By: #### V ITAD #### [facility] [address] [place] [address] Dr. Benito Schwartz pH (U) 5.5 [pH] Normal 5-9 [facility] Comment on above: Performed By: #### V ITAD #### [facility] [address] [place] [address] Dr. Benito Schwartz SPEC GRAVITY 1.010 Normal 1.005-<=1.02 5 [facility] Comment on above: Performed By: #### V ITAD #### [facility] [address] [place] [address] Dr. Benito Schwartz UA PROTEIN Negative Normal NEGATIVE/ TRACE [facility] Comment on above: Performed By: #### V ITAD #### [facility] [address] [place] [address] Dr. Benito Schwartz Urobilinogen Qn (U) 0.2 {Jagruti'U}/dL Normal 0.2 - 1. 0 [facility] Comment on above: Performed By: #### V ITAD #### [facility] [address] [place] [address] Dr. Benito Schwartz URINE T PROTEIN CREAT RATIOo n 09-09-2022 Protein (U) [Mass/Vol] 16.4 mg/dL Critically high <=12.0 [facility] [facility] Comment on above: Performed By: #### T KRISTOPHER FT3, BMP #### [facility] [address] [place] [address] Dr. Benito Schwartz UR PROT CREAT RAT 0.79 Normal [facility] Comment on above: Performed By: #### T KRISTOPHER FT3, BMP #### [facility] [address] [place] [address] Dr. Benito Schwartz URINE CREAT 20.88 mg/dL Normal 20.00-300.00 [facility] Comment on above: Performed By: #### T KRISTOPHER FT3, BMP #### [facility] [address] [place] [address] Dr. Benito Schwartz VITAMIN D 25 OHon 09-09-2022 VIT D 25-OH 83.7 ng/mL Normal [facility] Comment on above: Performed By: #### V ITAD #### [facility] [address] [place], [place] [address] Dr. Benito Schwartz VIT D RANGES SEE BELOW Normal [facility] Comment on above: Result Comment: <20 ng/mL Vit D deficient 20 - <30 ng/mL Vit D insufficient 30 - 100 ng/mL Vit D sufficient >100 ng/mL Potential Toxicity Performed By: #### V ITAD #### [facility] [address] [address] [address] Benito Schwartz Albumin [Mass/volume] in Ser um or PlasmaOrdered By: Leigha Nelson on 08-31-2022 Albumin [Mass/Vol] 3.9 g/dL 3.2-5.5 [facility] Basophils Auto (Bld) [#/Vol] Ordered By: Leigha Nelson on 08-31-2022 Basophils (Bld) [#/Vol] 0.0 10*3/uL 0.0-0.2 [facility] Basophils/100 WBC Auto (Bld) Ordered By: Leigha Nelson on 08-31-2022 Basophils/100 WBC (Bld) 0.5 % . [facility] Creatinine and Glomerular fi ltration rate.predicted panel (S/P/Bld)Ordered By: Leigha Nelson on 08-31-2022 Creatinine [Mass/Vol] 2.63 mg/dL 0.64-1.27 [facility] Eosinophils Auto (Bld) [#/Vo l]Ordered By: Leigha Nelson on 08-31-2022 Eosinophils (Bld) [#/Vol] 0.3 10*3/uL 0.0-0.45 [facility] Eosinophils/100 WBC Auto (Bl d)Ordered By: Leigha Nelson on 08-31-2022 Eosinophils/100 WBC (Bld) 4.3 % . [facility] Erythrocyte distribution wid th Auto (RBC) [Ratio]Ordered By: Leigha Nelson on 08-31-2022 Erythrocyte distribution width (RBC) [Ratio] 15.7 % 12.0-14.8 [facility] Estimated glomerular filtrat ion rate (GFR) non- AmericanOrdered By: Leigha Nelson on 11-16-2022 GFR/1.73 sq M.predicted among non-blacks MDRD (S/P/Bld) [Vol rate/Area] 24 mL/Min [facility] Globulin Calc (S) [Mass/Vol] Ordered By: Leigha Nelson on 08-31-2022 Globulin (S) [Mass/Vol] 2.8 g/dL [facility] Hematocrit Auto (Bld) [Volum e fraction]Ordered By: Leigha Nelson on 08-31-2022 Hematocrit (Bld) [Volume fraction] 37.2 % 38.8-50.0 [facility] Hemoglobin [Mass/volume] in BloodOrdered By: Leigha Nelson on 08-31-2022 Hemoglobin (Bld) [Mass/Vol] 12.4 g/dL 13.0-17.0 [facility] Laboratory - Hematology and Cell countsOrdered By: Leigha Nelson on 08-31-2022 Nucleated RBC/100 WBC (Bld) [Ratio] 0.1 % 0-0.5 [facility] Leukocytes [#/volume] in Blo od by Automated countOrdered By: Leigha Nelson on 08-31-2022 WBC (Bld) [#/Vol] 6.7 10*3/uL 4.5-11.0 [facility] Lymphocytes Auto (Bld) [#/Vo l]Ordered By: Leigha Nelson on 08-31-2022 Lymphocytes (Bld) [#/Vol] 1.2 10*3/uL 1.00-4.8 [facility] Lymphocytes/100 WBC Auto (Bl d)Ordered By: Leigha Nelson on 08-31-2022 Lymphocytes/100 WBC (Bld) 18.5 % . [facility] MCH Auto (RBC) [Entitic mass ]Ordered By: Leigha Nelson on 08-31-2022 MCH (RBC) [Entitic mass] 31.0 pg 27.5-35.2 [facility] MCHC Auto (RBC) [Mass/Vol]Or dered By: Leigha Nelson on 08-31-2022 MCHC (RBC) [Mass/Vol] 33.4 g/dL 32.5-35.6 [facility] MCV Auto (RBC) [Entitic vol] Ordered By: Leigha Nelson on 08-31-2022 MCV (RBC) [Entitic vol] 92.9 fL 83.5-101 [facility] Monocytes Auto (Bld) [#/Vol] Ordered By: Leigha Nelson on 08-31-2022 Monocytes (Bld) [#/Vol] 0.6 10*3/uL 0.0-0.8 [facility] Monocytes/100 WBC Auto (Bld) Ordered By: Leigha Nelson on 08-31-2022 Monocytes/100 WBC (Bld) 8.4 % . [facility] Neutrophils Auto (Bld) [#/Vo l]Ordered By: Leigha Nelson on 08-31-2022 Neutrophils (Bld) [#/Vol] 4.6 10*3/uL 1.8-7.7 [facility] Neutrophils/100 WBC Auto (Bl d)Ordered By: Leigha Nelson on 08-31-2022 Neutrophils/100 WBC (Bld) 68.3 % . [facility] No Panel InformationOrdered By: Leigha Nelson on 08-31-2022 Estimated GFR () 29 mL/Min [facility] Comment on above: GFR estimated refere nce range: According to KDOQI guidelines, <60 ml/min/1.73m2 is sufficient to diagnose a patient with chronic kidney disease. Pharmacy Creatinine Clearance (Chem 26.08 [facility] Platelet mean volume Auto (B ld) [Entitic vol]Ordered By: Leigha Nelson on 08-31-2022 Platelet mean volume (Bld) [Entitic vol] 6.8 fL 6.6-10.1 [facility] Platelets Auto (Bld) [#/Vol] Ordered By: Leigha Nelson on 08-31-2022 Platelets (Bld) [#/Vol] 238 10*3/uL 150-450 [facility] Protein [Mass/volume] in Ser um or PlasmaOrdered By: Leigha Nelson on 08-31-2022 Protein [Mass/Vol] 6.7 g/dL 6.1-7.9 [facility] RBC Auto (Bld) [#/Vol]Ordere d By: Leigha Nelson on 08-31-2022 RBC (Bld) [#/Vol] 4.00 10*6/uL 3.90-5.60 [facility] Serum or plasma alanine paige otransferase measurement without P-5'-P (enzymatic activiOrdered By: Leigha Omar on 08-31-2022 ALT No additional P-5'-P [Catalytic activity/Vol] 26 U/L 10-60 [facility] Serum or plasma albumin/glob ulin mass ratioOrdered By: Leigha Nelson on 08-31-2022 Albumin/Globulin [Mass ratio] 1.4 {ratio} [facility] Serum or plasma alkaline mega sphatase measurement (enzymatic activity/volume)Ordered By: Leigha Nelson on 08-31-2022 ALP [Catalytic activity/Vol] 112 U/L 32-92 [facility] Serum or plasma anion gap de terminationOrdered By: Leigha Nelson on 08-31-2022 Anion gap [Moles/Vol] 9.4 mmol/L 6.0-15.0 [facility] Serum or plasma aspartate am inotransferase measurement (enzymatic activity/volume)Ordered By: Leigha Nelson on 08-31-2022 AST [Catalytic activity/Vol] 32 U/L 10-42 [facility] Serum or plasma calcium darshan urement (mass/volume)Ordered By: Leigha Nelson on 08-31-2022 Calcium [Mass/Vol] 8.9 mg/dL 8.2-10.2 [facility] Serum or plasma carcinoembry onic antigen measurement (mass/volume)Ordered By: Leigha Nelson on 08-31-2022 Carcinoembryonic Ag [Mass/Vol] 2.5 ng/mL 0.0-3.0 [facility] Serum or plasma chloride ernestine surement (moles/volume)Ordered By: Leigha Nelson on 08-31-2022 Chloride [Moles/Vol] 98 mmol/L 95-114 [facility] Serum or plasma glucose darshan urement (mass/volume)Ordered By: Leigha Nelson on 08-31-2022 Glucose [Mass/Vol] 104 mg/dL 70-100 [facility] Comment on above: ADA recommended refe rence rangeRandom Glucose Reference Range is dependent on time and content of last meal. Glucose of more than 200 mg/dL in a nonstressed, ambulatory subject supports the diagnosis of Diabetes Mellitus. Serum or plasma potassium me asurement (moles/volume)Ordered By: Leigha Omar on 08-31-2022 Potassium [Moles/Vol] 3.4 mmol/L 3.5-5.1 [facility] Serum or plasma sodium measu rement (moles/volume)Ordered By: Leigha Omar on 08-31-2022 Sodium [Moles/Vol] 135 mmol/L 136-146 [facility] Serum or plasma total biliru bin measurement (mass/volume)Ordered By: Leigha Omar on 08-31-2022 Bilirubin [Mass/Vol] 0.8 mg/dL 0.3-1.2 [facility] Serum or plasma total carbon dioxide measurement (moles/volume)Ordered By: Leigha Omar on 08-31-2022 CO2 [Moles/Vol] 31.0 mmol/L 22.0-30.0 [facility] Serum or plasma urea nitroge n measurement (mass/volume)Ordered By: Leigha Omar on 08-31-2022 Urea nitrogen [Mass/Vol] 40 mg/dL 9- [facility] T3, TOTAL (TRIIODOTHYRONINE) on 08-31-2022 T3, TOTAL 42 ng/dL Critically low 71-180 [facility] Comment on above: Performed By: #### F T4, PSASC #### [facility] [address] [address] [address] Benito Schwartz FREE T4on 08-30-2022 Free T4 [Mass/Vol] 0.11 ng/dL Critically low 0.76-1.[address] [facility] Comment on above: Performed By: #### V ITAD #### [facility] [address] [address] [address] Benito Schwartz TSHon 08-30-2022 TSH 121.477 uIU/mL Critically high 0.358-3.740 [facility] Comment on above: Performed By: #### F T4 #### [facility] [address] [address] [address] Benito Schwartz Glucose Glucometer (BldC) [M ass/Vol]Ordered By: Ramesh Rascon on 07-21-2022 Glucose [Mass/Vol] 105 mg/dL [facility] Comment on above: Random Glucose Refer ence Range is dependent on time and content of last meal. Glucose of more than 200 mg/dL in a nonstressed, ambulatory subject supports the diagnosis of Diabetes Mellitus. T3, TOTAL (TRIIODOTHYRONINE) on 07-21-2022 T3, TOTAL 56 ng/dL Critically low 71-180 [facility] [place] [facility] Comment on above: Performed By: #### F T4, PSASC #### [facility] [address] [address] [address] Benito Schwartz FREE T4on 07-20-2022 Free T4 [Mass/Vol] 0.48 ng/dL Critically low 0.76-1.[address] [facility] Comment on above: Performed By: #### V ITAD #### [facility] [address] [address] [address] Benito Schwartz TSHon 07-20-2022 TSH 67.173 uIU/mL Critically high 0.358-3.740 [facility] Comment on above: Performed By: #### U RTPCR #### [facility] [address] [place] [address] Dr. Benito Schwartz COVID-19 SOFIAOrdered By: Lucia Rascon on 07-19-2022 SARS-CoV+SARS-CoV-2 (COVID-19) Ag IA.rapid Ql (Resp) Negative Negative [facility] Comment on above: This is a duplicate Lindsay SARS Antigen (MADHU) result to be used for statistical tracking purpose only. No Panel InformationOrdered By: Ramesh Rascon on 07-19-2022 SARS Antigen (LFIA) [facility] Albumin [Mass/volume] in Ser um or PlasmaOrdered By: Chivo Keller on 05-31-2022 Albumin [Mass/Vol] 3.9 g/dL 3.2-5.5 [facility] Basophils Auto (Bld) [#/Vol] Ordered By: Chivo Keller on 05-31-2022 Basophils (Bld) [#/Vol] 0.1 10*3/uL 0.0-0.2 [facility] Basophils/100 WBC Auto (Bld) Ordered By: Chivo Keller on 05-31-2022 Basophils/100 WBC (Bld) 0.8 % . [facility] Blood hemoglobin measurement (mass/volume)Ordered By: Chivo Keller on 05-31-2022 Hemoglobin (Bld) [Mass/Vol] 11.1 g/dL 13.0-17.0 [facility] Blood leukocytes automated c ount (number/volume)Ordered By: Chivo Keller on 05-31-2022 WBC (Bld) [#/Vol] 8.8 10*3/uL 4.5-11.[address] [facility] [address] biopsyOrdered By: Danuta Kelly on 05-31-2022 Transferrin [Mass/Vol] 210 mg/dL 180-380 [facility] Creatinine (Bld) [Mass/Vol]O rdered By: Nikunj Shultz on 05-31-2022 Creatinine [Mass/Vol] 2.4 mg/dL High 0.6-1.3 [facility] Comment on above: ER/ESD physician is [...] on 05-31-2022 Creatinine [Mass/Vol] 2.23 mg/dL 0.64-1.27 [facility] Eosinophils Auto (Bld) [#/Vo l]Ordered By: Chivo Keller on 05-31-2022 Eosinophils (Bld) [#/Vol] 0.4 10*3/uL 0.0-0.45 [facility] Eosinophils/100 WBC Auto (Bl d)Ordered By: Chivo Keller on 05-31-2022 Eosinophils/100 WBC (Bld) 4.1 % . [facility] Erythrocyte distribution wid th Auto (RBC) [Ratio]Ordered By: Chivo Keller on 05-31-2022 Erythrocyte distribution width (RBC) [Ratio] 16.4 % 12.0-14.8 [facility] Estimated glomerular filtrat ion rate (GFR) non- AmericanOrdered By: Chivo Keller on 05-31-2022 GFR/1.73 sq M.predicted among non-blacks MDRD (S/P/Bld) [Vol rate/Area] 28 mL/Min [facility] Ferritin [Mass/volume] in Se rum or PlasmaOrdered By: Danuta Kelly on 05-31-2022 Ferritin [Mass/Vol] 96.9 ng/mL 23.9-336.2 [facility] Folate [Mass/volume] in Seru m or PlasmaOrdered By: Danuta Kelly on 05-31-2022 Folate [Mass/Vol] 17.7 ng/mL >5.9 [facility] Comment on above: Folate reference ran ge: >5.9 ng/ml The WHO technical consultation on folate and vitamin b12 deficiencies has determined that folate concentrations less than 4 ng/ml are considered deficient. Folate reference ran ge: >5.9 ng/mlThe WHO technical consultation on folate and vitamin [id number] has determined that folate concentrations lessthan 4 ng/ml are considered deficient. Globulin Calc (S) [Mass/Vol] Ordered By: Chivo Keller on 05-31-2022 Globulin (S) [Mass/Vol] 3.4 g/dL [facility] Hematocrit Auto (Bld) [Volum e fraction]Ordered By: Chivo Keller on 05-31-2022 Hematocrit (Bld) [Volume fraction] 33.6 % 38.8-50.0 [facility] Iron [Mass/volume] in Serum or PlasmaOrdered By: Danuta Kelly on 05-31-2022 Iron [Mass/Vol] 42 ug/dL 40-160 [facility] Iron binding capacity [Mass/ volume] in Serum or PlasmaOrdered By: Danuta Kelly on 05-31-2022 Iron binding capacity [Mass/Vol] 294 ug/dL 255-450 [facility] Iron saturation [Mass Fracti on] in Serum or PlasmaOrdered By: Danuta Kelly on 05-31-2022 Iron saturation [Mass fraction] 14.0 % 20-50 [facility] - Chemistry and C hemistry - challengeOrdered By: Danuta Kelly on 05-31-2022 Cobalamin (Vitamin B12) [Mass/Vol] 463 pg/mL 180-914 [facility] - Hematology and Cell countsOrdered By: Chivo Keller on 05-31-2022 Nucleated RBC/100 WBC (Bld) [Ratio] 0.0 % 0-0.5 [facility] Lymphocytes Auto (Bld) [#/Vo l]Ordered By: Chivo Keller on 05-31-2022 Lymphocytes (Bld) [#/Vol] 1.5 10*3/uL 1.00-4.8 [facility] Lymphocytes/100 WBC Auto (Bl d)Ordered By: Chivo Keller on 05-31-2022 Lymphocytes/100 WBC (Bld) 17.2 % . [facility] MCH Auto (RBC) [Entitic mass ]Ordered By: Chivo Keller on 05-31-2022 MCH (RBC) [Entitic mass] 29.2 pg 27.5-35.2 [facility] MCHC Auto (RBC) [Mass/Vol]Or dered By: Chivo Keller on 05-31-2022 MCHC (RBC) [Mass/Vol] 33.1 g/dL 32.5-35.6 [facility] MCV Auto (RBC) [Entitic vol] Ordered By: Chivo Keller on 05-31-2022 MCV (RBC) [Entitic vol] 88.2 fL 83.5-101 [facility] Monocytes Auto (Bld) [#/Vol] Ordered By: Chivo Keller on 05-31-2022 Monocytes (Bld) [#/Vol] 0.7 10*3/uL 0.0-0.8 [facility] Monocytes/100 WBC Auto (Bld) Ordered By: Chivo Keller on 05-31-2022 Monocytes/100 WBC (Bld) 8.0 % . [facility] Neutrophils Auto (Bld) [#/Vo l]Ordered By: Chivo Keller on 05-31-2022 Neutrophils (Bld) [#/Vol] 6.2 10*3/uL 1.8-7.7 [facility] Neutrophils/100 WBC Auto (Bl d)Ordered By: Chivo Keller on 05-31-2022 Neutrophils/100 WBC (Bld) 69.9 % . [facility] No Panel InformationOrdered By: Nikunj Shultz on 05-31-2022 POC Estimated GFR 32 [facility] Comment on above: GFR estimated refere nce range: According to KDOQI guidelines, <60 ml/min/1.73m2 is sufficient to diagnose a patient with chronic kidney disease. POC Estimated GFR Non- Amer 26 [facility] No Panel InformationOrdered By: Chivo Keller on 05-31-2022 Estimated GFR () 34 mL/Min [facility] Comment on above: GFR estimated refere nce range: According to KDOQI guidelines, <60 ml/min/1.73m2 is sufficient to diagnose a patient with chronic kidney disease. Pharmacy Creatinine Clearance (Chem 31.14 [facility] Platelet mean volume Auto (B ld) [Entitic vol]Ordered By: Chivo Keller on 05-31-2022 Platelet mean volume (Bld) [Entitic vol] 7.0 fL 6.6-10.1 [facility] Platelets Auto (Bld) [#/Vol] Ordered By: Chivo Keller on 05-31-2022 Platelets (Bld) [#/Vol] 308 10*3/uL 150-450 [facility] Protein [Mass/volume] in Ser um or PlasmaOrdered By: Chivo Keller on 05-31-2022 Protein [Mass/Vol] 7.3 g/dL 6.1-7.9 [facility] RBC Auto (Bld) [#/Vol]Ordere d By: Chivo Keller on 05-31-2022 RBC (Bld) [#/Vol] 3.81 10*6/uL 3.90-5.60 [facility] Serum or plasma alanine paige otransferase measurement without P-5'-P (enzymatic activiOrdered By: Chivo Keller on 05-31-2022 ALT No additional P-5'-P [Catalytic activity/Vol] 17 U/L 10-60 [facility] Serum or plasma albumin/glob ulin mass ratioOrdered By: Chivo Keller on 05-31-2022 Albumin/Globulin [Mass ratio] 1.1 {ratio} [facility] Serum or plasma alkaline mega sphatase measurement (enzymatic activity/volume)Ordered By: Chivo Keller on 05-31-2022 ALP [Catalytic activity/Vol] 140 U/L 32-92 [facility] Serum or plasma aspartate am inotransferase measurement (enzymatic activity/volume)Ordered By: Chivo Keller on 05-31-2022 AST [Catalytic activity/Vol] 22 U/L 10-42 [facility] Serum or plasma calcium darshan urement (mass/volume)Ordered By: Chivo Keller on 05-31-2022 Calcium [Mass/Vol] 9.5 mg/dL 8.2-10.2 [facility] Serum or plasma carcinoembry onic antigen measurement (mass/volume)Ordered By: Chivo Keller on 05-31-2022 Carcinoembryonic Ag [Mass/Vol] 1.8 ng/mL 0.0-3.0 [facility] Serum or plasma chloride ernestine surement (moles/volume)Ordered By: Chivo Keller on 05-31-2022 Chloride [Moles/Vol] 101 mmol/L 95-114 [facility] Serum or plasma glucose darshan urement (mass/volume)Ordered By: Chivo Keller on 05-31-2022 Glucose [Mass/Vol] 108 mg/dL 70-100 [facility] Comment on above: ADA recommended refe rence [...] on 05-31-2022 Potassium [Moles/Vol] 4.4 mmol/L 3.5-5.1 [facility] Serum or plasma sodium measu rement (moles/volume)Ordered By: Chivo Keller on 05-31-2022 Sodium [Moles/Vol] 140 mmol/L 136-146 [facility] Serum or plasma total biliru bin measurement (mass/volume)Ordered By: Chivo Keller on 05-31-2022 Bilirubin [Mass/Vol] 0.5 mg/dL 0.3-1.2 [facility] Serum or plasma total carbon dioxide measurement (moles/volume)Ordered By: Chivo Keller on 05-31-2022 CO2 [Moles/Vol] 29.7 mmol/L 22.0-30.0 [facility] Serum or plasma urea nitroge n measurement (mass/volume)Ordered By: Chivo Keller on 05-31-2022 Urea nitrogen [Mass/Vol] 42 mg/dL 9-23 [facility] CBC W/DIFFon 05-26-2022 ABS IMM GRANS 0.1 10*3/uL Normal 0.0-0.2 [facility] Comment on above: Performed By: #### 5 [id number] #### [facility] [address] [place] [address], [facility] ABS NEUTROPHILS 6.4 10*3/uL Normal 1.6-7.6 [facility] Comment on above: Performed By: #### 5 0103 #### [facility] [address] [facility] [place] [address], [facility] Basophils (Bld) [#/Vol] 0.0 10*3/uL Normal 0.0-0.2 [facility] Comment on above: Performed By: #### 5 0103 #### [facility] [address] [place] [address], [facility] Basophils/100 WBC (Bld) 0.4 % Normal 0.0-1.0 [facility] Comment on above: Performed By: #### 5 0103 #### [facility] [address] [place] [address], [facility] Eosinophils (Bld) [#/Vol] 0.4 10*3/uL Normal 0.0-0.5 [facility] Comment on above: Performed By: #### 5 0103 #### [facility] [address] [place] [address], [facility] Eosinophils/100 WBC (Bld) 4.3 % Normal 0.0-6.0 [facility] Comment on above: Performed By: #### 5 0103 #### [facility] [address] Erythrocyte distribution width (RBC) [Ratio] 15.9 % High 11.5-15.0 [facility] Comment on above: Performed By: #### 5 0103 #### [facility] [address] Hematocrit (Bld) [Volume fraction] 31.6 % Low 39.0-50.0 [facility] Comment on above: Performed By: #### 5 0103 #### [facility] [address] [facility] Hemoglobin (Bld) [Mass/Vol] 10.0 g/dL Low 13.0-17.0 [facility] Comment on above: Performed By: #### 5 3 #### [facility] [address] [place] [address], [facility] IMMATURE GRANS 0.8 % Normal 0.0-1.0 [facility] Comment on above: Performed By: #### 5 3 #### [facility] [address] [place] [address], [facility] Lymphocytes (Bld) [#/Vol] 1.6 10*3/uL Normal 1.2-4.0 [facility] Comment on above: Performed By: #### 5 0103 #### [facility] [address] [place] [address], [facility] Lymphocytes/100 WBC (Bld) 16.8 % Low 20.0-45.0 [facility] Comment on above: Performed By: #### 5 0103 #### [facility] [address] [place] [address], [facility] MCH (RBC) [Entitic mass] 28.7 pg Normal 27.0-33.0 [facility] Comment on above: Performed By: #### 5 0103 #### [facility] [address] [place] [address], [facility] MCHC (RBC) [Mass/Vol] 31.6 g/dL Low 32.0-35.0 [facility] Comment on above: Performed By: #### 5 0103 #### [facility] [address] [place] [address], [facility] MCV (RBC) [Entitic vol] 90.5 fL Normal 82.0-98.0 T he [facility] Comment on above: Performed By: #### 5 0103 #### [facility] [address] [place] [address], [facility] Monocytes (Bld) [#/Vol] 0.8 10*3/uL Normal 0.1-1.0 [facility] Comment on above: Performed By: #### 5 0103 #### [facility] [address] [place] [address], [facility] MONOS 9.0 % Normal 5.0-12.0 [facility] Comment on above: Performed By: #### 5 3 #### [facility] [address] [facility] [place] [address], [facility] Neutrophils/100 WBC (Bld) 68.7 % Normal 40.0-72.0 [facility] Comment on above: Performed By: #### 5 0103 #### [facility] [address] [place] [address], [facility] Nucleated RBC/100 WBC (Bld) [Ratio] 0 % Normal 0-0 The [facility] Comment on above: Performed By: #### 5 [id number] #### [facility] [address] [facility] [place] [address], [facility] PLAT CNT 292 10*3/uL Normal 150-400 [facility] Comment on above: Performed By: #### 5 0103 #### [facility] [address] [place] [address], [facility] RBC (Bld) [#/Vol] 3.49 10*6/uL Low 4.20-5.70 [facility] Comment on above: Performed By: #### 5 0103 #### [facility] [address] [place] [address], [facility] WBC (Bld) [#/Vol] 9.29 10*3/uL Normal 4.00-10.60 [facility] Comment on above: Performed By: #### 5 [id number] #### [facility] [address] [place] [address], [facility] IMMUNOGLOBULIN Jovany 2 [place] Normal [facility] Comment on above: Result Comment: Test Performed by [employer] [address] [place] [address] 14022 - Released 05/27/2022 12:45 IMMUNOGLOBULIN E 308 IU/mL High <101 [facility] THYROID-STIMULATING IMMUNOGL OBULINon 05-14-2022 Thyroid Sim Immunoglobulin <0.10 Normal 0.00-0.55 [facility] Comment on above: Performed By: #### C BC #### [facility] [address] [address] [address] Benito Schwartz THYROTROPIN RECEPTOR ABon Thyrotropin Receptor Ab, Serum <1.10 Normal 0.00-1.75 [facility] Comment on above: Performed By: #### C BC #### [facility] [address] [address] [address] Benito Schwartz PTH INTACTon 05-13-2022 PTH, Intact 18 pg/mL Normal 15-65 [facility] Comment on above: Performed By: #### C BC #### [facility] [address] [address] [address] Benito Schwartz T3, TOTAL (TRIIODOTHYRONINE) on 05-13-2022 T3, TOTAL 80 ng/dL Normal 71-180 [facility] Comment on above: Performed By: #### U RTPCR #### [facility] [address] [address] [address] Benito Schwartz VIT D 25-OH LABCORPon 2021 Vitamin D, 25-Hydroxy 84.3 ng/mL Normal 30.0-100.0 [facility] Comment on above: Result Comment: Randi min D deficiency has been defined by the [place] of [employer] and an Endocrine Society practice guideline as a level of serum 25-OH vitamin D less than 20 ng/mL (1,2). The Endocrine Society went on to further define vitamin D insufficiency as a level between 21 and 29 ng/mL (2). 1. IOM ([place] [employer]). 2010. Dietary reference intakes for calcium and D. [place]: The National Academies Press. 2. Annamarie OVALLE, Milena [place], Jamin BURGESS, et al. Evaluation, treatment, and prevention of vitamin D deficiency: an Endocrine Society clinical practice guideline. JCEM. 2010; 96(7):1911-30. Performed By: #### U RTPCR #### [facility] [address] [address] [address] Benito Schwartz CBC AUTO DIFFon 05-12-2022 BASO # 0.0 103/ul Normal 0.0-0.1 [facility] Comment on above: Performed By: #### C BC #### [facility] [address] [address] [address] Benito Schwartz Basophils/100 WBC (Bld) 0.2 % Normal 0.2-2.0 [facility] Comment on above: Performed By: #### C BC #### [facility] [address] [address] [address] Benito Schwartz EO # 0.4 103/ul Normal 0.0-0.7 [facility] Comment on above: Performed By: #### C BC #### [facility] [address] [address] [address] Benito Schwartz Eosinophils/100 WBC (Bld) 4.4 % Normal 0.9-7.0 [facility] Comment on above: Performed By: #### C BC #### [facility] [address] [address] [address] Benito Schwartz Erythrocyte distribution width (RBC) [Ratio] 15.0 % Normal 11.0-15.0 [facility] Comment on above: Performed By: #### C BC #### [facility] [address] [place] [address] Dr. Benito Schwartz Hematocrit (Bld) [Volume fraction] 29.8 % Critically low 42.0-54.0 [facility] Comment on above: Performed By: #### C BC #### [facility] [address] [place] [address] Dr. Benito Schwartz Hemoglobin (Bld) [Mass/Vol] 9.7 g/dL Critically low 14.0-18.0 [facility] Comment on above: Performed By: #### C BC #### [facility] [address] [place] [address] Dr. Benito Schwartz IG # 0.06 10e3/ul Critically high 0.00-0.03 [facility] Comment on above: Performed By: #### C BC #### [facility] [address] [address] [address] Benito Schwartz IG % 0.7 % Critically high 0.0-0.5 [facility] Comment on above: Performed By: #### C BC #### [facility] [address] [place] [address] Dr. Benito Schwartz LYMPH # 1.9 103/ul Normal 1.2-3.8 [facility] Comment on above: Performed By: #### C BC #### [facility] [address] [place] [address] Dr. Benito Schwartz Lymphocytes/100 WBC (Bld) 21.1 % Normal 20.5-60.0 [facility] Comment on above: Performed By: #### C BC #### [facility] [address] [place] [address] Dr. Benito Schwartz MANUAL DIFF REQ NO Normal [facility] Comment on above: Performed By: #### C BC #### [facility] [address] [place] [address] Dr. Benito Schwartz MCH (RBC) [Entitic mass] 29.0 pg Normal 25.9-34.0 [facility] Comment on above: Performed By: #### C BC #### [facility] [address] [place] [address] Dr. Benito Schwartz MCHC (RBC) [Mass/Vol] 32.6 g/dL Normal 29.9-35.2 [facility] Comment on above: Performed By: #### C BC #### [facility] [address] [place] [address] Dr. Benito Schwartz MCV (RBC) [Entitic vol] 89.0 fL Normal 80.0-94.0 [facility] Comment on above: Performed By: #### C BC #### [facility] [address] [place] [address] Dr. Benito Schwartz MONO # 0.9 103/ul Critically high 0.3-0.8 [facility] Comment on above: Performed By: #### C BC #### [facility] [address] [place] [address] Dr. Benito Schwartz Monocytes/100 WBC (Bld) 9.9 % Normal 1.7-12.0 [facility] Comment on above: Performed By: #### C BC #### [facility] [address] [place] [address] Dr. Benito Schwartz NEUT # 5.8 103/ul Normal 1.4-6.5 [facility] Comment on above: Performed By: #### C BC #### [facility] [address] [address] [address] Benito Schwartz Neutrophils/100 WBC (Bld) 63.7 % Normal 43.0-75.0 [facility] Comment on above: Performed By: #### C BC #### [facility] [address] [address] [address] Benito Schwartz Platelet mean volume (Bld) [Entitic vol] 8.7 fL Critically low 9.5-13.5 [facility] Comment on above: Performed By: #### C BC #### [facility] [address] [place] [address] Dr. Benito Schwartz PLT 253 103/ul Normal 150-450 [facility] Comment on above: Performed By: #### C BC #### [facility] [address] [place] [address] Dr. Benito Schwartz RBC 3.35 106/ul Critically low 4.70-6.10 [facility] Comment on above: Performed By: #### C BC #### [facility] [address] [place] [address] Dr. Benito Schwartz WBC 9.1 103/ul Normal 4.0-11.0 [facility] Comment on above: Performed By: #### C BC #### [facility] [address] [place] [address] Dr. Benito Schwartz FREE T4on 05-12-2022 Free T4 [Mass/Vol] 1.25 ng/dL Normal 0.76-1.46 [facility] Comment on above: Performed By: #### V ITAD #### [facility] [address] [place] [address] Dr. Benito Schwartz MAGNESIUMon 05-12-2022 Magnesium [Mass/Vol] 2.1 mg/dL Normal 1.8-2.4 [facility] Comment on above: Performed By: #### F T4 #### [facility] [address] [place] [address] Dr. Benito Schwartz PHOSPHORUSon 05-12-2022 Phosphate [Mass/Vol] 4.2 mg/dL Normal 2.6-4.7 [facility] Comment on above: Performed By: #### F T4 #### [facility] [address] [address] [address] Benito Schwartz PROF CHEM 8 (BAS METB)on Anion gap [Moles/Vol] 13.4 mmol/L Normal Th [facility] Comment on above: Performed By: #### F T4 #### [facility] [address] [place] [address] Dr. Benito Schwartz Calcium [Mass/Vol] 9.1 mg/dL Normal 8.5-10.1 [facility] Comment on above: Performed By: #### F T4 #### [facility] [address] [place] [address] Dr. Benito Schwartz Chloride [Moles/Vol] 103 mmol/L Normal 98-107 [facility] Comment on above: Performed By: #### F T4 #### [facility] [address] [place] [address] Dr. Benito Schwartz CO2 [Moles/Vol] 28.6 mmol/L Normal 21.0-32.0 [facility] Comment on above: Performed By: #### F T4 #### [facility] [address] [place] [address] Dr. Benito Schwartz Creatinine [Mass/Vol] 2.30 mg/dL Critically high 0.70-1.30 [facility] Comment on above: Performed By: #### F T4 #### [facility] [address] [place] [address] Dr. Benito Schwartz EGFR-AF PARAGUAYAN 33 mL/min/1.73m2 Critically low >=60 [facility] Comment on above: Performed By: #### F T4 #### [facility] [address] [place] [address] Dr. Benito Schwartz EGFR-NON AF PARAGUAYAN 27 mL/min/1.73m2 Critically low >=60 [facility] Comment on above: Performed By: #### F T4 #### [facility] [address] [place] [address] Dr. Benito Schwartz Glucose [Mass/Vol] 123 mg/dL Critically high 74-106 [facility] Comment on above: Performed By: #### F T4 #### [facility] [address] [place] [address] Dr. Benito Schwartz Potassium [Moles/Vol] 4.0 mmol/L Normal 3.5-5.1 [facility] Comment on above: Performed By: #### F T4 #### [facility] [address] [place] [address] Dr. Benito Schwartz Sodium [Moles/Vol] 141 mmol/L Normal 136-145 [facility] Comment on above: Performed By: #### F T4 #### [facility] [address] [place] [address] Dr. Benito Schwartz Urea nitrogen [Mass/Vol] 51.0 mg/dL Critically high 7.0-18 .0 [facility] Comment on above: Performed By: #### F T4 #### [facility] [address] [place] [address] Dr. Benito Schwartz Urea nitrogen/Creatinine [Mass ratio] 22.2 mg/mg Normal [facility] Comment on above: Performed By: #### F T4 #### [facility] [address] [place] [address] Dr. Benito Schwartz TSHon 05-12-2022 TSH Qn m[IU]/L Critically low 0.358-3.740 [facility] Comment on above: Performed By: #### C BC #### [facility] [address] [place] [address] Dr. Benito Schwartz UA RANDOMon 05-12-2022 Bilirubin Ql (U) Negative Normal NEGATIVE [facility] Comment on above: Performed By: #### U RTPCR #### [facility] [address] [place] [address] Dr. Benito Schwartz Clarity (U) CLEAR Normal CLEAR [facility] Comment on above: Performed By: #### U RTPCR #### [facility] [address] [place] [address] Dr. Benito Schwartz Color (U) LT. YELLOW Normal YELLOW [facility] Comment on above: Performed By: #### U RTPCR #### [facility] [address] [address] [address] Benito Schwartz Glucose Ql (U) Negative Normal NEGATIVE [facility] Comment on above: Performed By: #### U RTPCR #### [facility] [address] [address] [address] Benito Schwartz Hemoglobin Ql (U) Negative Normal NEGATIVE [facility] Comment on above: Performed By: #### U RTPCR #### [facility] [address] [place] [address] Dr. Benito Schwartz Ketones Ql (U) Negative Normal NEGATIVE [facility] Comment on above: Performed By: #### U RTPCR #### [facility] [address] [place] [address] Dr. Benito Schwartz LEUKOCYTES Negative Normal NEGATIVE [facility] Comment on above: Performed By: #### U RTPCR #### [facility] [address] [place] [address] Dr. Benito Schwartz Nitrite Ql (U) Negative Normal NEGATIVE [facility] Comment on above: Performed By: #### U RTPCR #### [facility] [address] [place] [address] Dr. Benito Schwartz pH (U) 5.5 [pH] Normal 5-9 [facility] Comment on above: Performed By: #### U RTPCR #### [facility] [address] [place] [address] Dr. Benito Schwartz SPEC GRAVITY 1.010 Normal 1.005-<=1.[address] [place] [address] Comment on above: Performed By: #### U RTPCR #### [facility] [address] [place] [address] Dr. Benito Schwartz UA PROTEIN Negative Normal NEGATIVE/ TRACE [facility] Comment on above: Performed By: #### U RTPCR #### [facility] [address] [place] [address] Dr. Benito Schwartz Urobilinogen Qn (U) 0.2 {Jagruti'U}/dL Normal 0.2 - 1. 0 [facility] Comment on above: Performed By: #### U RTPCR #### [facility] [address] [place] [address] Dr. Benito Schwartz URINE T PROTEIN CREAT RATIOo n 05-12-2022 Protein (U) [Mass/Vol] 18.3 mg/dL Critically high <=12.0 [facility] Comment on above: Performed By: #### U RTPCR #### [facility] [address] [place] [address] Dr. Benito Schwartz UR PROT CREAT RAT 0.39 Normal [facility] Comment on above: Performed By: #### U RTPCR #### [facility] [address] [place] [address] Dr. Benito Schwartz URINE CREAT 47.44 mg/dL Normal 20.00-300.00 [facility] Comment on above: Performed By: #### U RTPCR #### [facility] [address] [place] [address] Dr. Benito Schwartz HEMOGLOBINon 05-10-2022 Hemoglobin (Bld) [Mass/Vol] 9.6 g/dL Critically low 14.0-18.0 [facility] Comment on above: Performed By: #### F T4, PSASC #### [facility] [address] [place] [address] Dr. Benito Schwartz NM THY SCAN W [...] JJ HI Date: 2022-04-28 09:05 Normal [facility] T3, TOTAL (TRIIODOTHYRONINE) on 06-25-2022 T3, TOTAL 167 ng/dL Normal 71-180 [facility] Comment on above: Performed By: #### B 12FOL, FETIBC #### [facility] [address] [place] [address] Dr. Benito Schwartz FREE T3on 04-08-2022 FREE T3 6.07 pg/mlL Critically high 2.18-3.98 [facility] Comment on above: Performed By: #### T SH, FT3, BMP #### [facility] [address] [place] [address] Dr. Benito Schwartz FREE T4on 04-08-2022 Free T4 [Mass/Vol] 2.62 ng/dL Critically high 0.76-1.46 [facility] Comment on above: Performed By: #### T SH, FT3, BMP #### [facility] [address] [place] [address] Dr. Benito Schwartz PROF CHEM 8 (BAS METB)on Anion gap [Moles/Vol] 13.5 mmol/L Normal [facility] Comment on above: Performed By: #### B 12FOL, FETIBC #### [facility] [address] [place] [address] Dr. Benito Schwartz Calcium [Mass/Vol] 9.9 mg/dL Normal 8.5-10.1 [facility] Comment on above: Performed By: #### B 12FOL, FETIBC #### [facility] [address] [place] [address] Dr. Benito Schwartz Chloride [Moles/Vol] 105 mmol/L Normal 98-107 [facility] Comment on above: Performed By: #### B 12FOL, FETIBC #### [facility] [address] [place] [address] Dr. Benito Schwartz CO2 [Moles/Vol] 26.5 mmol/L Normal 21.0-32.0 [facility] Comment on above: Performed By: #### B 12FOL, FETIBC #### [facility] [address] [place] [address] Dr. Benito Schwartz Creatinine [Mass/Vol] 2.33 mg/dL Critically high 0.70-1.30 [facility] Comment on above: Performed By: #### B 12FOL, FETIBC #### [facility] [address] [place] [address] Dr. Benito Schwartz EGFR-AF PARAGUAYAN 33 mL/min/1.73m2 Critically low >=60 [facility] Comment on above: Performed By: #### B 12FOL, FETIBC #### [facility] [address] [address] [address] Benito Schwartz EGFR-NON AF PARAGUAYAN 27 mL/min/1.73m2 Critically low >=60 [facility] Comment on above: Performed By: #### B 12FOL, FETIBC #### [facility] [address] [place] [address] Dr. Benito Schwartz Glucose [Mass/Vol] 104 mg/dL Normal 74-106 [facility] Comment on above: Performed By: #### B 12FOL, FETIBC #### [facility] [address] [place] [address] Dr. Benito Schwartz Potassium [Moles/Vol] 5.0 mmol/L Normal 3.5-5.1 [facility] Comment on above: Performed By: #### B 12FOL, FETIBC #### [facility] [address] [place] [address] Dr. Benito Schwartz Sodium [Moles/Vol] 140 mmol/L Normal 136-145 [facility] Comment on above: Performed By: #### B 12FOL, FETIBC #### [facility] [address] [place] [address] Dr. Benito Schwartz Urea nitrogen [Mass/Vol] 60.0 mg/dL Critically high 7.0-18 .0 [facility] Comment on above: Performed By: #### B 12FOL, FETIBC #### [facility] [address] [place] [address] Dr. Benito Schwartz Urea nitrogen/Creatinine [Mass ratio] 25.8 mg/mg Normal [facility] Comment on above: Performed By: #### B 12FOL, FETIBC #### [facility] [address] [address] [address] Benito Schwartz TSHon 04-08-2021 TSH Qn m[IU]/L Critically low 0.358-3.740 [facility] Comment on above: Performed By: #### T SH, FT3, BMP #### [facility] [address] [address] [address] Benito Schwartz BASIC METABOLIC PANELon 03-16 Calcium [Mass/Vol] 9.1 mg/dL Normal 8.6-10.3 [facility] Comment on above: Order Comment: No: D o not add to previous draw Performed By: #### 1 69, [id number] #### [facility] [address] [place] [address], [place] Chloride [Moles/Vol] 106 mmol/L Normal 98-107 [facility] Comment on above: Order Comment: No: D o not add to previous draw Performed By: #### 1 69, [id number] #### [facility] [address] [place] [address], [place] CO2 [Moles/Vol] 25 mmol/L Normal 21-31 [facility] Comment on above: Order Comment: No: D o not add to previous draw Performed By: #### 1 69, [id number] #### [facility] [address] [place] [address], [place] Creatinine [Mass/Vol] 2.12 mg/dL High 0.70-1.30 [facility] Comment on above: Order Comment: No: D o not add to previous draw Performed By: #### 1 69, [id number] #### [facility] [address] [place] [address], [place] eGFR- 37 ml/min/1.73sq m Abnormal >60 [facility] Comment on above: Order Comment: No: D o not add to previous draw Result Comment: Calc ulation may not be valid for patients over 70 years Performed By: #### 1 69, [id number] #### [facility] [address] [place] [address], [place] eGFR- non- 30 ml/min/1.73sq m Abnormal >60 [facility] Comment on above: Order Comment: No: D o not add to previous draw Result Comment: Calc ulation may not be valid for patients over 70 years Performed By: #### 1 69, [id number] #### [facility] [address] [place] [address], [place] Glucose [Mass/Vol] 93 mg/dL Normal 70-100 [facility] Comment on above: Order Comment: No: D o not add to previous draw Performed By: #### 1 69, [id number] #### [facility] [address] [place] [address], [place] Potassium [Moles/Vol] 3.9 mmol/L Normal 3.5-5.1 [facility] Comment on above: Order Comment: No: D o not add to previous draw Performed By: #### 1 69, [id number] #### [facility] [address] [place] [address], [place] Sodium [Moles/Vol] 141 mmol/L Normal 136-145 [facility] Comment on above: Order Comment: No: D o not add to previous draw Performed By: #### 1 69, [id number] #### [facility] [address] [place] [address], [place] Urea nitrogen [Mass/Vol] 56 mg/dL High 7-25 [facility] Comment on above: Order Comment: No: D o not add to previous draw Performed By: #### 1 69, [id number] #### [facility] [address] [place] [address], [place] CBC COMPLETE BLOOD COUNTon 0 6- Erythrocyte distribution width (RBC) [Ratio] 13.6 % Normal 11.5-15.0 [facility] Comment on above: Order Comment: No: D o not add to previous draw Performed By: #### 5 0103 #### [facility] [address] [place] [address], [facility] Hematocrit (Bld) [Volume fraction] 26.2 % Low 39.0-50.0 [facility] Comment on above: Order Comment: No: D o not add to previous draw Performed By: #### 5 0103 #### [facility] [facility] [address] [place] [address], [facility] Hemoglobin (Bld) [Mass/Vol] 8.7 g/dL Low 13.0-17.0 [facility] Comment on above: Order Comment: No: D o not add to previous draw Performed By: #### 5 0103 #### [facility] [address] [place] [address], [facility] MCH (RBC) [Entitic mass] 29.3 pg Normal 27.0-33.0 [facility] Comment on above: Order Comment: No: D o not add to previous draw Performed By: #### 5 0103 #### [facility] [address] [place] [address], [facility] MCHC (RBC) [Mass/Vol] 33.2 g/dL Normal 32.0-35.0 [facility] Comment on above: Order Comment: No: D o not add to previous draw Performed By: #### 5 0103 #### [facility] [address] [place] [address], [facility] MCV (RBC) [Entitic vol] 88.2 fL Normal 82.0-98.0 [facility] Comment on above: Order Comment: No: D o not add to previous draw Performed By: #### 5 0103 #### [facility] [address] [place] [address], [facility] Nucleated RBC/100 WBC (Bld) [Ratio] 0 % Normal 0-0 [facility] Comment on above: Order Comment: No: D o not add to previous draw Performed By: #### 5 0103 #### [facility] [address] [place] [address], [facility] PLAT CNT 190 10*3/uL Normal 150-400 [facility] Comment on above: Order Comment: No: D o not add to previous draw Performed By: #### 5 0103 #### [facility] [address] [place] [address], [facility] RBC (Bld) [#/Vol] 2.97 10*6/uL Low 4.20-5.70 [facility] Comment on above: Order Comment: No: D o not add to previous draw Performed By: #### 5 0103 #### [facility] [address] [place] [address], [facility] WBC (Bld) [#/Vol] 5.20 10*3/uL Normal 4.00-10.60 [facility] Comment on above: Order Comment: No: D o not add to previous draw Performed By: #### 5 0103 #### [facility] [address] [place] [address], [facility] MAGNESIUM BLOODon 04-02-2022 Magnesium [Mass/Vol] 2.2 mg/dL Normal 1.9-2.7 [facility] Comment on above: Order Comment: No: D o not add to previous draw Performed By: #### 1 0070, [id number] #### [facility] [address] [place] [address], [facility] POC GLUCOSE LABon 04-02-2022 Glucose [Mass/Vol] 99 mg/dL Normal 70-100 [facility] Comment on above: Performed By: #### 5 0608 #### [facility] [address] [place] [address], [facility] BASIC METABOLIC PANELon - Calcium [Mass/Vol] 9.1 mg/dL Normal 8.6-10.3 [facility] Comment on above: Order Comment: No: D o not add to previous draw Performed By: #### 5 0608 #### [facility] [address] [place] [address], [place] Chloride [Moles/Vol] 106 mmol/L Normal 98-107 [facility] Comment on above: Order Comment: No: D o not add to previous draw Performed By: #### 5 0608 #### [facility] [address] [place] [address], [place] CO2 [Moles/Vol] 25 mmol/L Normal 21-31 [facility] Comment on above: Order Comment: No: D o not add to previous draw Performed By: #### 5 0608 #### [facility] [address] [place] [address], [place] Creatinine [Mass/Vol] 2.07 mg/dL High 0.70-1.30 [facility] Comment on above: Order Comment: No: D o not add to previous draw Performed By: #### 5 0608 #### [facility] [address] [place] [address], [facility] eGFR- 38 ml/min/1.73sq m Abnormal >60 [facility] Comment on above: Order Comment: No: D o not add to previous draw Result Comment: Calc ulation may not be valid for patients over 70 years Performed By: #### 5 0608 #### [facility] [address] [place] [address], [place] eGFR- non- 31 ml/min/1.73sq m Abnormal >60 [facility] Comment on above: Order Comment: No: D o not add to previous draw Result Comment: Calc ulation may not be valid for patients over 70 years Performed By: #### 5 0608 #### [facility] [address] [place] [address], [place] Glucose [Mass/Vol] 94 mg/dL Normal 70-100 [facility] Comment on above: Order Comment: No: D o not add to previous draw Performed By: #### 5 0608 #### [facility] [address] [place] [address], [facility] Potassium [Moles/Vol] 3.9 mmol/L Normal 3.5-5.1 [facility] Comment on above: Order Comment: No: D o not add to previous draw Performed By: #### 5 0608 #### [facility] [address] [place] [address], [place] Sodium [Moles/Vol] 144 mmol/L Normal 136-145 [facility] Comment on above: Order Comment: No: D o not add to previous draw Performed By: #### 5 0608 #### [facility] [address] [place] [address], [place] Urea nitrogen [Mass/Vol] 54 mg/dL High 7-25 [facility] Comment on above: Order Comment: No: D o not add to previous draw Performed By: #### 5 0608 #### [facility] [address] [place] [address], [facility] CBC COMPLETE BLOOD COUNTon 0 - Erythrocyte distribution width (RBC) [Ratio] 13.5 % Normal 11.5-15.0 [facility] Comment on above: Order Comment: No: D o not add to previous draw Performed By: #### 5 0608 #### [facility] [address] [place] [address], [facility] Hematocrit (Bld) [Volume fraction] 27.5 % Low 39.0-50.0 [facility] Comment on above: Order Comment: No: D o not add to previous draw Performed By: #### 5 0608 #### [facility] [address] [place] [address], [facility] Hemoglobin (Bld) [Mass/Vol] 8.9 g/dL Low 13.0-17.0 [facility] Comment on above: Order Comment: No: D o not add to previous draw Performed By: #### 5 0608 #### [facility] [address] MCH (RBC) [Entitic mass] 29.2 pg Normal 27.0-33.0 [facility] Comment on above: Order Comment: No: D o not add to previous draw Performed By: #### 5 0608 #### [facility] [address] MCHC (RBC) [Mass/Vol] 32.4 g/dL Normal 32.0-35.0 [facility] Comment on above: Order Comment: No: D o not add to previous draw Performed By: #### 5 0608 #### [facility] [address] MCV (RBC) [Entitic vol] 90.2 fL Normal 82.0-98.0 [facility] Comment on above: Order Comment: No: D o not add to previous draw Performed By: #### 5 0608 #### [facility] [address] Nucleated RBC/100 WBC (Bld) [Ratio] 0 % Normal 0-0 [facility] Comment on above: Order Comment: No: D o not add to previous draw Performed By: #### 5 0608 #### [facility] [address] [place] [address], [facility] PLAT CNT 213 10*3/uL Normal 150-400 [facility] Comment on above: Order Comment: No: D o not add to previous draw Performed By: #### 5 0608 #### [facility] [address] [place] [address], [facility] RBC (Bld) [#/Vol] 3.05 10*6/uL Low 4.20-5.70 [facility] Comment on above: Order Comment: No: D o not add to previous draw Performed By: #### 5 0608 #### [facility] [address] [facility]. [address] WBC (Bld) [#/Vol] 6.02 10*3/uL Normal 4.00-10.60 [facility] Comment on above: Order Comment: No: D o not add to previous draw Performed By: #### 5 0608 #### [facility] [address] Cardiovascular Lab Reporton 04-01-2022 Cardiovascular Lab Report [facility] Patient Name: Melody [facility] MR #: [id number] Physician: Sriram Rick Department of M.D. Medicine Service Date: 03/31/2022 Division of Birthdate: 1940 Cardiology Room #: 3AB [id number] Adult Cardiovascular Services [place] [address] Cardiovascular Laboratory Report FINAL IMPRESSIONS: 1. Moderately [...] right internal jugular vein was obtained. A 6-Upper Sorbian 11 cm sheath was inserted without difficulty. [...] M.D. Date Trans: 04/01/2022 02:03 Jay Jay/hans [id number] cc: Arnie Linda D.O. [address] [place] [id number] Normal [facility] HEMOGLOBIN A1Con 04-01-2022 Glucose [Moles/Vol] 137 mmol/L Normal [facility] Comment on above: Order Comment: If no t done in EDNo: Do not add to previous draw Performed By: #### 5 0103 #### [facility] [address] [place] [address], [facility] HbA1c (Bld) [Mass fraction] 6.4 % High 4.0-6.0 [facility] Comment on above: Order Comment: If no t done in EDNo: Do not add to previous draw Performed By: #### 5 0103 #### [facility] [address] [place] [address], [place] MAGNESIUM BLOODon 04-01-2022 Magnesium [Mass/Vol] 2.2 mg/dL Normal 1.9-2.7 [facility] Comment on above: Order Comment: No: D o not add to previous draw Performed By: #### 5 0608 #### [facility] [address] [place] [address], [place] POC GLUCOSE LABon 04-01-2022 Glucose [Mass/Vol] 114 mg/dL High 70-100 [facility] Comment on above: Performed By: #### 5 0103 #### [facility] [address] [place] [address], [place] Glucose [Mass/Vol] 117 mg/dL High 70-100 [facility] Comment on above: Performed By: #### 5 0608 #### [facility] [address] [place] [address], [place] Glucose [Mass/Vol] 139 mg/dL High 70-100 [facility] Comment on above: Performed By: #### 5 0608 #### [facility] [address] [place] [address], [place] Glucose [Mass/Vol] 98 mg/dL Normal 70-100 [facility] Comment on above: Performed By: #### 5 0608 #### [facility] [address] [place] [address], [place] BASIC METABOLIC PANELon 03-16 Calcium [Mass/Vol] 9.1 mg/dL Normal 8.6-10.3 [facility] Comment on above: Order Comment: No: D o not add to previous draw Performed By: #### 4 4396, 42287, 71277, 32999, 92620 #### [facility] [address] [place] [address], [place] Chloride [Moles/Vol] 104 mmol/L Normal 98-107 [facility] Comment on above: Order Comment: No: D o not add to previous draw Performed By: #### 4 4396, 53257, 47634, 42897, 04371 #### [facility] [address] [place] [address], [facility] CO2 [Moles/Vol] 27 mmol/L Normal 21-31 [facility] Comment on above: Order Comment: No: D o not add to previous draw Performed By: #### 4 4396, 39340, 21789, 31964, 19485 #### [facility] [address] [place] [address], [place] Creatinine [Mass/Vol] 2.59 mg/dL High 0.70-1.30 [facility] Comment on above: Order Comment: No: D o not add to previous draw Performed By: #### 4 4396, 45710, 68187, 09381, 82621 #### [facility] [address] [place] [address], [facility] eGFR- 29 ml/min/1.73sq m Abnormal >60 [facility] Comment on above: Order Comment: No: D o not add to previous draw Result Comment: Calc ulation may not be valid for patients over 70 years Performed By: #### 4 4396, 40402, 66349, 26036, 04231 #### [facility] [address] [place] [address], [facility] eGFR- non- 24 ml/min/1.73sq m Abnormal >60 [facility] Comment on above: Order Comment: No: D o not add to previous draw Result Comment: Calc ulation may not be valid for patients over 70 years Performed By: #### 4 4396, 76992, 47141, 60243, 23121 #### [facility] [address] [place] [address], [place] Glucose [Mass/Vol] 90 mg/dL Normal 70-100 [facility] Comment on above: Order Comment: No: D o not add to previous draw Performed By: #### 4 4396, 07407, 27097, 20792, 30671 #### [facility] [address] [place] [address], [place] Potassium [Moles/Vol] 4.2 mmol/L Normal 3.5-5.1 [facility] Comment on above: Order Comment: No: D o not add to previous draw Performed By: #### 4 4396, 54737, 29499, 73193, 22916 #### [facility] [address] [place] [address], [facility] Sodium [Moles/Vol] 141 mmol/L Normal 136-145 [facility] Comment on above: Order Comment: No: D o not add to previous draw Performed By: #### 4 4396, 10361, 03739, 49391, 32528 #### [facility] [address] [place] [address], [place] Urea nitrogen [Mass/Vol] 55 mg/dL High 7-25 [facility] Comment on above: Order Comment: No: D o not add to previous draw Performed By: #### 4 4396, 61518, 57496, 04923, 24064 #### [facility] [address] [place] [address], [facility] CBC COMPLETE BLOOD COUNTon 0 - Erythrocyte distribution width (RBC) [Ratio] 13.6 % Normal 11.5-15.0 [facility] Comment on above: Order Comment: No: D o not add to previous draw Performed By: #### 5 0608 #### [facility] [address] [place] [address], [place] Hematocrit (Bld) [Volume fraction] 27.1 % Low 39.0-50.0 [facility] Comment on above: Order Comment: No: D o not add to previous draw Performed By: #### 5 0608 #### [facility] [address] [place] [address], [place] Hemoglobin (Bld) [Mass/Vol] 8.7 g/dL Low 13.0-17.0 [facility] Comment on above: Order Comment: No: D o not add to previous draw Performed By: #### 5 0608 #### [facility] [address] [place] [address], [facility] MCH (RBC) [Entitic mass] 28.8 pg Normal 27.0-33.0 [facility] Comment on above: Order Comment: No: D o not add to previous draw Performed By: #### 5 0608 #### [facility] [address] MCHC (RBC) [Mass/Vol] 32.1 g/dL Normal 32.0-35.0 [facility] Comment on above: Order Comment: No: D o not add to previous draw Performed By: #### 5 0608 #### [facility] [address] [place] [address], [facility] MCV (RBC) [Entitic vol] 89.7 fL Normal 82.0-98.0 T mela [facility] Comment on above: Order Comment: No: D o not add to previous draw Performed By: #### 5 0608 #### [facility] [address] Nucleated RBC/100 WBC (Bld) [Ratio] 0 % Normal 0-0 [facility] Comment on above: Order Comment: No: D o not add to previous draw Performed By: #### 5 0608 #### [facility] [address] [place] [address], [facility] PLAT CNT 184 10*3/uL Normal 150-400 [facility] Comment on above: Order Comment: No: D o not add to previous draw Performed By: #### 5 0608 #### [facility] [address] [place] [address], [facility] RBC (Bld) [#/Vol] 3.02 10*6/uL Low 4.20-5.70 [facility] Comment on above: Order Comment: No: D o not add to previous draw Performed By: #### 5 0608 #### [facility] [address] [place] [address], [facility] WBC (Bld) [#/Vol] 5.93 10*3/uL Normal 4.00-10.60 [facility] Comment on above: Order Comment: No: D o not add to previous draw Performed By: #### 5 0608 #### [facility] [address] [place] [address], [facility] FREE T4on 03-31-2022 Free T4 [Mass/Vol] 4.55 ng/dL High 0.71-1.85 [facility] Comment on above: Performed By: #### 5 0103 #### [facility] [address] [place] [address], [facility] MAGNESIUM BLOODon 03-31-2022 Magnesium [Mass/Vol] 2.3 mg/dL Normal 1.9-2.7 [facility] Comment on above: Order Comment: No: D o not add to previous draw Performed By: #### 4 4396, 48190, 09668, 39668, 47761 #### [facility] [address] [place] [address], [facility] PHOSPHORUS BLOODon 2 Phosphate [Mass/Vol] 5.4 mg/dL High 2.5-5.0 [facility] Comment on above: Order Comment: No: D o not add to previous draw Performed By: #### 4 4396, 64853, 98614, 38242, 81306 #### [facility] [address] [place] [address], [facility] POC GLUCOSE LABon 03-31-2022 Glucose [Mass/Vol] 161 mg/dL High 70-100 [facility] Comment on above: Performed By: #### 5 0608 #### [facility] [address] [place] [address], [place] Glucose [Mass/Vol] 108 mg/dL High 70-100 [facility] Comment on above: Performed By: #### 5 0608 #### [facility] [address] [facility]. [address] POC SARS COV2 ANTIGEN NEGATI VEon [...] antigen from SARS-CoV-2 in direct nasopharyngeal swab ([employer]) specimens from individuals who are suspected of [...] Accreditation. Performed By: #### 5 0103 #### [facility] [address] [facility]. [address] TSH3on 03-31-2022 TSH 3RD GENERATION <0.01 Critically low 0.34-5.60 Th e [facility] Comment on above: Performed By: #### 4 4396, 87175, 18457, 92007, 34553 #### [facility] [address] [place] [address], [facility] BASIC METABOLIC PANELon - Calcium [Mass/Vol] 9.8 mg/dL Normal 8.6-10.3 [facility] Comment on above: Order Comment: No: D o not add to previous draw Performed By: #### 5 0103 #### [facility] [address] [place] [address], [place] Chloride [Moles/Vol] 103 mmol/L Normal 98-107 [facility] Comment on above: Order Comment: No: D o not add to previous draw Performed By: #### 5 0103 #### [facility] [address] [place] [address], [place] CO2 [Moles/Vol] 29 mmol/L Normal 21-31 [facility] Comment on above: Order Comment: No: D o not add to previous draw Performed By: #### 5 0103 #### [facility] [address] [place] [address], [place] Creatinine [Mass/Vol] 2.60 mg/dL High 0.70-1.30 [facility] Comment on above: Order Comment: No: D o not add to previous draw Performed By: #### 5 0103 #### [facility] [address] [place] [address], [facility] eGFR- 29 ml/min/1.73sq m Abnormal >60 [facility] Comment on above: Order Comment: No: D o not add to previous draw Result Comment: Calc ulation may not be valid for patients over 70 years Performed By: #### 5 0103 #### [facility] [address] [place] [address], [place] eGFR- non- 24 ml/min/1.73sq m Abnormal >60 [facility] Comment on above: Order Comment: No: D o not add to previous draw Result Comment: Calc ulation may not be valid for patients over 70 years Performed By: #### 5 0103 #### [facility] [address] [place] [address], [place] Glucose [Mass/Vol] 109 mg/dL High 70-100 [facility] Comment on above: Order Comment: No: D o not add to previous draw Performed By: #### 5 0103 #### [facility] [address] Potassium [Moles/Vol] 4.0 mmol/L Normal 3.5-5.1 [facility] Comment on above: Order Comment: No: D o not add to previous draw Performed By: #### 5 0103 #### [facility] [address] Sodium [Moles/Vol] 141 mmol/L Normal 136-145 [facility] Comment on above: Order Comment: No: D o not add to previous draw Performed By: #### 5 0103 #### [facility] [address] Urea nitrogen [Mass/Vol] 55 mg/dL High 7-25 [facility] Comment on above: Order Comment: No: D o not add to previous draw Performed By: #### 5 0103 #### [facility] [address] CBC W/DIFFon 03-30-2022 ABS IMM GRANS 0.0 10*3/uL Normal 0.0-0.2 [facility] Comment on above: Performed By: #### 5 0103 #### [facility] [address] [facility]. [address] ABS NEUTROPHILS 4.1 10*3/uL Normal 1.6-7.6 [facility] Comment on above: Performed By: #### 5 0103 #### [facility] [address] [place] [address], [facility] Basophils (Bld) [#/Vol] 0.0 10*3/uL Normal 0.0-0.2 [facility] Comment on above: Performed By: #### 5 0103 #### [facility] [address] [place] [address], [facility] Basophils/100 WBC (Bld) 0.3 % Normal 0.0-1.0 T mel[facility] Comment on above: Performed By: #### 5 0103 #### [facility] [address] [facility] [place] [address], [facility] Eosinophils (Bld) [#/Vol] 0.3 10*3/uL Normal 0.0-0.5 [facility] Comment on above: Performed By: #### 5 0103 #### [facility] [address] [facility] [place] [address], [facility] Eosinophils/100 WBC (Bld) 5.3 % Normal 0.0-6.0 [facility] Comment on above: Performed By: #### 5 3 #### [facility] [address] [facility]. [address] Erythrocyte distribution width (RBC) [Ratio] 13.7 % Normal 11.5-15.0 [facility] Comment on above: Performed By: #### 5 0103 #### [facility] [address] Hematocrit (Bld) [Volume fraction] 30.2 % Low 39.0-50.0 [facility] Comment on above: Performed By: #### 5 0103 #### [facility] [address] [facility] [place] [address], [facility] Hemoglobin (Bld) [Mass/Vol] 9.8 g/dL Low 13.0-17.0 [facility] Comment on above: Performed By: #### 5 0103 #### [facility] [address] [place] [address], [facility] IMMATURE GRANS 0.3 % Normal 0.0-1.0 [facility] Comment on above: Performed By: #### 5 3 #### [facility] [address] Lymphocytes (Bld) [#/Vol] 1.1 10*3/uL Low 1.2-4.0 [facility] Comment on above: Performed By: #### 5 0103 #### [facility] [address] Lymphocytes/100 WBC (Bld) 17.9 % Low 20.0-45.0 [facility] Comment on above: Performed By: #### 0103 #### [facility] [address] MCH (RBC) [Entitic mass] 29.3 pg Normal 27.0-33.0 [facility] Comment on above: Performed By: #### 102 #### [facility] [address] MCHC (RBC) [Mass/Vol] 32.5 g/dL Normal 32.0-35.0 [facility] Comment on above: Performed By: #### 102 #### [facility] [address] MCV (RBC) [Entitic vol] 90.4 fL Normal 82.0-98.0 T he [facility] Comment on above: Performed By: #### 5 3 #### [facility] [address] [place] [address], [facility] Monocytes (Bld) [#/Vol] 0.7 10*3/uL Normal 0.1-1.0 [facility] Comment on above: Performed By: #### 5 0103 #### [facility] [address] MONOS 11.6 % Normal 5.0-12.0 [facility] Comment on above: Performed By: #### 5 3 #### [facility] [address] Neutrophils/100 WBC (Bld) 64.6 % Normal 40.0-72.0 [facility] Comment on above: Performed By: #### 5 0103 #### [facility] [address] [place] [address], [facility] Nucleated RBC/100 WBC (Bld) [Ratio] 0 % Normal 0-0 [facility] Comment on above: Performed By: #### 5 0103 #### [facility] [address] [facility] [place] [address], [facility] PLAT CNT 215 10*3/uL Normal 150-400 [facility] Comment on above: Performed By: #### 5 0103 #### [facility] [address] [facility] [place] [address], [facility] RBC (Bld) [#/Vol] 3.34 10*6/uL Low 4.20-5.70 [facility] Comment on above: Performed By: #### 5 0103 #### [facility] [address] [place] [address], [facility] WBC (Bld) [#/Vol] 6.38 10*3/uL Normal 4.00-10.60 [facility] Comment on above: Performed By: #### 5 0103 #### [facility] [address] [place] [address], [facility] MAGNESIUM BLOODon 03-30-2022 Magnesium [Mass/Vol] 2.3 mg/dL Normal 1.9-2.7 [facility] Comment on above: Order Comment: No: D o not add to previous draw Performed By: #### 5 0103 #### [facility] [address] [place] [address], [facility] TROPONIN-Ion 03-30-2022 Troponin I.cardiac [Mass/Vol] 0.04 ng/mL Normal 0.00-0.04 [facility] Comment on above: Order Comment: No: D o not add to previous draw Result Comment: REFE RENCE RANGES: 0.00 - 0.04 ng/ml NORMAL 0.05 - 0.50 ng/ml INDETERMINATE > 0.50 ng/ml CONSISTENT WITH AN M.I. Performed By: #### 5 0103 #### [facility] [address] [place] [address], [facility] BNPon 03-25-2022 Natriuretic peptide B (Bld) [Mass/Vol] 7410.0 pg/mL Critically high <=1,800.0 [facility] Comment on above: Performed By: #### F T4 #### [facility] [address] [address] [address] Benito Schwartz PROF CHEM 8 (BAS METB)on Anion gap [Moles/Vol] 14.5 mmol/L Normal [facility] Comment on above: Performed By: #### F T4 #### [facility] [address] [address] [address] Benito Schwartz Calcium [Mass/Vol] 9.6 mg/dL Normal 8.5-10.1 [facility] Comment on above: Performed By: #### F T4 #### [facility] [address] [address] [address] Benito Schwartz Chloride [Moles/Vol] 105 mmol/L Normal 98-107 [facility] Comment on above: Performed By: #### F T4 #### [facility] [address] [address] [address] Benito Schwartz CO2 [Moles/Vol] 27.6 mmol/L Normal 21.0-32.0 [facility] Comment on above: Performed By: #### F T4 #### [facility] [address] [address] [address] Benito Schwartz Creatinine [Mass/Vol] 2.48 mg/dL Critically high 0.70-1.30 [facility] Comment on above: Performed By: #### F T4 #### [facility] [address] [address] [address] Benito Schwartz EGFR-AF PARAGUAYAN 31 mL/min/1.73m2 Critically low >=60 [facility] Comment on above: Performed By: #### F T4 #### [facility] [address] [address] [address] Benito Schwartz EGFR-NON AF PARAGUAYAN 25 mL/min/1.73m2 Critically low >=60 [facility] Comment on above: Performed By: #### F T4 #### [facility] [address] [address] [address] Benito Schwartz Glucose [Mass/Vol] 116 mg/dL Critically high 74-106 [facility] Comment on above: Performed By: #### F T4 #### [facility] [address] [address] [address] Benito Schwartz Potassium [Moles/Vol] 4.1 mmol/L Normal 3.5-5.1 [facility] Comment on above: Performed By: #### F T4 #### [facility] [address] [address] [address] Benito Schwartz Sodium [Moles/Vol] 143 mmol/L Normal 136-145 [facility] Comment on above: Performed By: #### F T4 #### [facility] [address] [address] [address] Benito Schwartz Urea nitrogen [Mass/Vol] 56.0 mg/dL Critically high 7.0-18 .0 [facility] Comment on above: Performed By: #### F T4 #### [facility] [address] [address] [address] Benito Schwartz Urea nitrogen/Creatinine [Mass ratio] 22.6 mg/mg Normal [facility] Comment on above: Performed By: #### F T4 #### [facility] [address] [address] [address] Benito Schwartz CBC AUTO DIFFon 03-07-2022 BASO # 0.0 103/ul Normal 0.0-0.1 [facility] Comment on above: Performed By: #### V ITAD #### [facility] [address] [address] [address] Benito Schwartz Basophils/100 WBC (Bld) 0.3 % Normal 0.2-2.0 [facility] Comment on above: Performed By: #### V ITAD #### [facility] [address] [place] [address] Dr. Benito Schwartz EO # 0.1 103/ul Normal 0.0-0.7 [facility] Comment on above: Performed By: #### V ITAD #### [facility] [address] [place] [address] Dr. Benito Schwartz Eosinophils/100 WBC (Bld) 2.4 % Normal 0.9-7.0 [facility] Comment on above: Performed By: #### V ITAD #### [facility] [address] [place] [address] Dr. Benito Schwartz Erythrocyte distribution width (RBC) [Ratio] 13.4 % Normal 11.0-15.0 [facility] Comment on above: Performed By: #### V ITAD #### [facility] [address] [place] [address] Dr. Benito Schwartz Hematocrit (Bld) [Volume fraction] 27.7 % Critically low 42.0-54.0 [facility] Comment on above: Performed By: #### V ITAD #### [facility] [address] [place] [address] Dr. Benito Shcwartz Hemoglobin (Bld) [Mass/Vol] 8.8 g/dL Critically low 14.0-18.0 [facility] Comment on above: Performed By: #### V ITAD #### [facility] [address] [place] [address] Dr. Benito Schwartz IG # 0.02 10e3/ul Normal 0.00-0.03 [facility] Comment on above: Performed By: #### V ITAD #### [facility] [address] [place] [address] Dr. Benito Schwartz IG % 0.3 % Normal 0.0-0.5 [facility] Comment on above: Performed By: #### V ITAD #### [facility] [address] [place] [address] Dr. Benito Schwartz LYMPH # 1.1 103/ul Critically low 1.2-3.8 [facility] [place] [facility] Comment on above: Performed By: #### V ITAD #### [facility] [address] [place] [address] Dr. Benito Schwartz Lymphocytes/100 WBC (Bld) 17.9 % Critically low 20.5-60.0 [facility] Comment on above: Performed By: #### V ITAD #### [facility] [address] [place] [address] Dr. Benito Schwartz MANUAL DIFF REQ NO Normal [facility] Comment on above: Performed By: #### V ITAD #### [facility] [address] [place] [address] Dr. Benito Schwartz MCH (RBC) [Entitic mass] 29.0 pg Normal 25.9-34.0 [facility] Comment on above: Performed By: #### V ITAD #### [facility] [address] [place] [address] Dr. Benito Schwartz MCHC (RBC) [Mass/Vol] 31.8 g/dL Normal 29.9-35.2 [facility] Comment on above: Performed By: #### V ITAD #### [facility] [address] [place] [address] Dr. Benito Schwartz MCV (RBC) [Entitic vol] 91.4 fL Normal 80.0-94.0 [facility] Comment on above: Performed By: #### V ITAD #### [facility] [address] [place] [address] Dr. Benito Schwartz MONO # 0.9 103/ul Critically high 0.3-0.8 [facility] Comment on above: Performed By: #### V ITAD #### [facility] [address] [place] [address] Dr. Benito Schwartz Monocytes/100 WBC (Bld) 15.3 % Critically high 1.7-12. 0 [facility] Comment on above: Performed By: #### V ITAD #### [facility] [address] [place] [address] Dr. Benito Schwartz NEUT # 3.7 103/ul Normal 1.4-6.5 [facility] Comment on above: Performed By: #### V ITAD #### [facility] [address] [place] [address] Dr. Benito Schwartz Neutrophils/100 WBC (Bld) 63.8 % Normal 43.0-75.0 [facility] Comment on above: Performed By: #### V ITAD #### [facility] [address] [place] [address] Dr. Benito Schwartz Platelet mean volume (Bld) [Entitic vol] 9.8 fL Normal 9.5-13.5 [facility] Comment on above: Performed By: #### V ITAD #### [facility] [address] [place] [address] Dr. Benito Schwartz PLT 212 103/ul Normal 150-450 [facility] Comment on above: Performed By: #### V ITAD #### [facility] [address] [place] [address] Dr. Benito Schwartz RBC 3.03 106/ul Critically low 4.70-6.10 [facility] Comment on above: Performed By: #### V ITAD #### [facility] [address] [place] [address] Dr. Benito Schwartz WBC 5.9 103/ul Normal 4.0-11.0 [facility] Comment on above: Performed By: #### V ITAD #### [facility] [address] [place] [address] Dr. Benito Schwartz ECHOCARDIO M/2D COMPLETEon 0 03-07-2022 ECHOCARDIO M/2D COMPLETE Patient: NAS REN Exam Date: 03/07/2022 : 1940 Gender:M Ordering : DR RUPINDER GRIGSBY . Admission #: [id number] Family : DR ARNIE LINDA D.O. Order #: [id number] CLICK HERE TO VIEW EXAM ECHOCARDIOGRAM REPORT [...] Area(A4C): 23.30 cm2 Left Atrium Systolic Volume(A2C): 33719 mm3 Left Atrium Systolic Volume(A4C): 94868 mm3 Mitral Valve MV E to A [...] Rick M.D. on 03/08/2022 at 11:16 Normal [facility] OCC BLD IMMUNO SCREENon 02-14 OCCULT BLOOD Negative Normal NEGATIVE [facility] Comment on above: Performed By: #### V ITAD #### [facility] [address] [place] [address] Dr. Benito Schwartz POINT OF CARE GLUCOSEon 02-14 Glucose [Mass/Vol] 124 mg/dL Critically high 74-106 [facility] Comment on above: Performed By: #### B 12FOL, FETIBC #### [facility] [address] [place] [address] Dr. Benito Schwartz PROF CHEM 8 (BAS METB)on Anion gap [Moles/Vol] 13.1 mmol/L Normal [facility] Comment on above: Performed By: #### B 12FOL, FETIBC #### [facility] [address] [address] [address] Benito Schwartz Calcium [Mass/Vol] 9.2 mg/dL Normal 8.5-10.1 [facility] Comment on above: Performed By: #### B 12FOL, FETIBC #### [facility] [address] [place] [address] Dr. Benito Schwartz Chloride [Moles/Vol] 105 mmol/L Normal 98-107 [facility] Comment on above: Performed By: #### B 12FOL, FETIBC #### [facility] [address] [place] [address] Dr. Beinto Schwartz CO2 [Moles/Vol] 28.6 mmol/L Normal 21.0-32.0 [facility] Comment on above: Performed By: #### B 12FOL, FETIBC #### [facility] [address] [place] [address] Dr. Benito Schwartz Creatinine [Mass/Vol] 2.22 mg/dL Critically high 0.70-1.30 [facility] Comment on above: Performed By: #### B 12FOL, FETIBC #### [facility] [address] [place] [address] Dr. Benito Schwartz EGFR-AF PARAGUAYAN 35 mL/min/1.73m2 Critically low >=60 [facility] Comment on above: Performed By: #### B 12FOL, FETIBC #### [facility] [address] [place] [address] Dr. Benito Schwartz EGFR-NON AF PARAGUAYAN 29 mL/min/1.73m2 Critically low >=60 [facility] Comment on above: Performed By: #### B 12FOL, FETIBC #### [facility] [address] [place] [address] Dr. Benito Schwartz Glucose [Mass/Vol] 110 mg/dL Critically high 74-106 [facility] Comment on above: Performed By: #### B 12FOL, FETIBC #### [facility] [address] [place] [address] Dr. Benito Schwartz Potassium [Moles/Vol] 3.7 mmol/L Normal 3.5-5.1 [facility] Comment on above: Performed By: #### B 12FOL, FETIBC #### [facility] [address] [place] [address] Dr. Benito Schwartz Sodium [Moles/Vol] 143 mmol/L Normal 136-145 [facility] Comment on above: Performed By: #### B 12FOL, FETIBC #### [facility] [address] [place] [address] Dr. Benito Schwartz Urea nitrogen [Mass/Vol] 66.0 mg/dL Critically high 7.0-18 .0 [facility] Comment on above: Performed By: #### B 12FOL, FETIBC #### [facility] [address] [place] [address] Dr. Benito Schwartz Urea nitrogen/Creatinine [Mass ratio] 29.7 mg/mg Normal [facility] Comment on above: Performed By: #### B 12FOL, FETIBC #### [facility] [address] [place] [address] Dr. Benito Schwartz CBC AUTO DIFFon 03-06-2022 BASO # 0.0 103/ul Normal 0.0-0.1 [facility] Comment on above: Performed By: #### B 12FOL, FETIBC #### [facility] [address] [place] [address] Dr. Benito Schwartz Basophils/100 WBC (Bld) 0.2 % Normal 0.2-2.0 [facility] Comment on above: Performed By: #### B 12FOL, FETIBC #### [facility] [address] [place] [address] Dr. Benito Schwartz EO # 0.1 103/ul Normal 0.0-0.7 [facility] Comment on above: Performed By: #### B 12FOL, FETIBC #### [facility] [address] [place] [address] Dr. Benito Schwartz Eosinophils/100 WBC (Bld) 2.4 % Normal 0.9-7.0 [facility] Comment on above: Performed By: #### B 12FOL, FETIBC #### [facility] [address] [place] [address] Dr. Benito Schwartz Erythrocyte distribution width (RBC) [Ratio] 13.8 % Normal 11.0-15.0 [facility] Comment on above: Performed By: #### B 12FOL, FETIBC #### [facility] [address] [place] [address] Dr. Benito Schwartz Hematocrit (Bld) [Volume fraction] 27.7 % Critically low 42.0-54.0 [facility] Comment on above: Performed By: #### B 12FOL, FETIBC #### [facility] [address] [place] [address] Dr. Benito Schwartz Hemoglobin (Bld) [Mass/Vol] 8.7 g/dL Critically low 14.0-18.0 [facility] Comment on above: Performed By: #### B 12FOL, FETIBC #### [facility] [address] [place] [address] Dr. Benito Schwartz IG # 0.02 10e3/ul Normal 0.00-0.03 [facility] Comment on above: Performed By: #### B 12FOL, FETIBC #### [facility] [address] [place] [address] Dr. Benito Schwartz IG % 0.3 % Normal 0.0-0.5 [facility] Comment on above: Performed By: #### B 12FOL, FETIBC #### [facility] [address] [place] [address] Dr. Benito Schwartz LYMPH # 1.0 103/ul Critically low 1.2-3.8 [facility] Comment on above: Performed By: #### B 12FOL, FETIBC #### [facility] [address] [place] [address] Dr. Benito Schwartz Lymphocytes/100 WBC (Bld) 16.7 % Critically low 20.5-60.0 [facility] Comment on above: Performed By: #### B 12FOL, FETIBC #### [facility] [address] [place] [address] Dr. Benito Schwartz MANUAL DIFF REQ NO Normal [facility] Comment on above: Performed By: #### B 12FOL, FETIBC #### [facility] [address] [place] [address] Dr. Benito Schwartz MCH (RBC) [Entitic mass] 29.1 pg Normal 25.9-34.0 [facility] Comment on above: Performed By: #### B 12FOL, FETIBC #### [facility] [address] [place] [address] Dr. Benito Schwartz MCHC (RBC) [Mass/Vol] 31.4 g/dL Normal 29.9-35.2 [facility] Comment on above: Performed By: #### B 12FOL, FETIBC #### [facility] [address] [place] [address] Dr. Benito Schwartz MCV (RBC) [Entitic vol] 92.6 fL Normal 80.0-94.0 [facility] Comment on above: Performed By: #### B 12FOL, FETIBC #### [facility] [address] [place] [address] Dr. Benito Schwartz MONO # 0.9 103/ul Critically high 0.3-0.8 [facility] Comment on above: Performed By: #### B 12FOL, FETIBC #### [facility] [address] [place] [address] Dr. Benito Schwartz Monocytes/100 WBC (Bld) 15.3 % Critically high 1.7-12. 0 [facility] Comment on above: Performed By: #### B 12FOL, FETIBC #### [facility] [address] [place] [address] Dr. Benito Schwartz NEUT # 3.7 103/ul Normal 1.4-6.5 [facility] Comment on above: Performed By: #### B 12FOL, FETIBC #### [facility] [address] [place] [address] Dr. Benito Schwartz Neutrophils/100 WBC (Bld) 65.1 % Normal 43.0-75.0 [facility] Comment on above: Performed By: #### B 12FOL, FETIBC #### [facility] [address] [place] [address] Dr. Benito Schwartz Platelet mean volume (Bld) [Entitic vol] 9.7 fL Normal 9.5-13.5 [facility] Comment on above: Performed By: #### B 12FOL, FETIBC #### [facility] [address] [place], [place] [address] Dr. Benito Schwartz PLT 205 103/ul Normal 150-450 [facility] Comment on above: Performed By: #### B 12FOL, FETIBC #### [facility] [address] [place], [place] [address] Dr. Benito Schwartz RBC 2.99 106/ul Critically low 4.70-6.10 [facility] Comment on above: Performed By: #### B 12FOL, FETIBC #### [facility] [address] [place], [place] [address] Dr. Benito Schwartz WBC 5.7 103/ul Normal 4.0-11.0 [facility] Comment on above: Performed By: #### B 12FOL, FETIBC #### [facility] [address] [address] HEAD WO CONon [...] ANTHONY TRACEY Date: 2022-03-06 12:33 Normal [facility] IRON AND TIBCon 03-06-2022 % SATURATION 24.7 % Normal [facility] Comment on above: Performed By: #### B 12FOL, FETIBC #### [facility] [address] [address] [address] Benito Schwartz Iron [Mass/Vol] 55.0 ug/dL Critically low 65.0-175.0 [facility] Comment on above: Performed By: #### B 12FOL, FETIBC #### [facility] [address] [place] [address] Dr. Benito Schwartz TIBC DIRECT 223.0 ug/dL Critically low 250.0-450.0 [facility] Comment on above: Performed By: #### B 12FOL, FETIBC #### [facility] [address] [place] [address] Dr. Benito Schwartz POINT OF CARE GLUCOSEon 02-14 Glucose [Mass/Vol] 145 mg/dL Critically high 74-106 [facility] Comment on above: Performed By: #### V ITAD #### [facility] [address] [place] [address] Dr. Benito Schwartz PROF CHEM 8 (BAS METB)on Anion gap [Moles/Vol] 14.6 mmol/L Normal [facility] Comment on above: Performed By: #### V ITAD #### [facility] [address] [place] [address] Dr. Benito Schwartz Calcium [Mass/Vol] 9.0 mg/dL Normal 8.5-10.1 [facility] Comment on above: Performed By: #### V ITAD #### [facility] [address] [place] [address] Dr. Benito Schwartz Chloride [Moles/Vol] 106 mmol/L Normal 98-107 [facility] Comment on above: Performed By: #### V ITAD #### [facility] [address] [place] [address] Dr. Benito Schwartz CO2 [Moles/Vol] 26.3 mmol/L Normal 21.0-32.0 [facility] Comment on above: Performed By: #### V ITAD #### [facility] [address] [place] [address] Dr. Benito Schwartz Creatinine [Mass/Vol] 2.40 mg/dL Critically high 0.70-1.30 [facility] Comment on above: Performed By: #### V ITAD #### [facility] [address] [address] [address] Benito Schwartz EGFR-AF PARAGUAYAN 32 mL/min/1.73m2 Critically low >=60 [facility] Comment on above: Performed By: #### V ITAD #### [facility] [address] [address] [address] Benito Schwartz EGFR-NON AF PARAGUAYAN 26 mL/min/1.73m2 Critically low >=60 [facility] Comment on above: Performed By: #### V ITAD #### [facility] [address] [address] [address] Benito Schwartz Glucose [Mass/Vol] 108 mg/dL Critically high 74-106 [facility] Comment on above: Performed By: #### V ITAD #### [facility] [address] [address] [address] Benito Schwartz Potassium [Moles/Vol] 3.9 mmol/L Normal 3.5-5.1 [facility] Comment on above: Performed By: #### V ITAD #### [facility] [address] [address] [address] Benito Schwartz Sodium [Moles/Vol] 143 mmol/L Normal 136-145 [facility] Comment on above: Performed By: #### V ITAD #### [facility] [address] [address] [address] Benito Schwartz Urea nitrogen [Mass/Vol] 72.0 mg/dL Critically high 7.0-18 .0 [facility] Comment on above: Performed By: #### V ITAD #### [facility] [address] [address] [address] Bentio Schwartz Urea nitrogen/Creatinine [Mass ratio] 30.0 mg/mg Normal [facility] Comment on above: Performed By: #### V ITAD #### [facility] [address] [address] [address] Benito Schwartz VIT B12 AND FOLATEon 022 Cobalamin (Vitamin B12) [Mass/Vol] 432.0 pg/mL Normal 193.0-986.0 [facility] Comment on above: Performed By: #### B 12FOL, FETIBC #### [facility] [address] [address] [address] Benito Schwartz FOLATE 21.60 ng/mL Normal 8.60-58.90 [facility] Comment on above: Performed By: #### B 12FOL, FETIBC #### [facility] [address] [address] [address] Benito Schwartz BNPon 03-05-2022 Natriuretic peptide B (Bld) [Mass/Vol] 6910.0 pg/mL Critically high <=1,800.0 [facility] Comment on above: Result Comment: Test Repeated. Critical Value Verified Performed By: #### B 12FOL, FETIBC #### [facility] [address] [place] [address] Dr. Benito Schwartz CBC AUTO DIFFon 03-05-2022 BASO # 0.0 103/ul Normal 0.0-0.1 [facility] Comment on above: Performed By: #### F T4, PSASC #### [facility] [address] [place] [address] Dr. Benito Schwartz Basophils/100 WBC (Bld) 0.3 % Normal 0.2-2.0 [facility] Comment on above: Performed By: #### F T4, PSASC #### [facility] [address] [place] [address] Dr. Benito Schwartz EO # 0.2 103/ul Normal 0.0-0.7 [facility] Comment on above: Performed By: #### F T4, PSASC #### [facility] [address] [place] [address] Dr. Benito Schwartz Eosinophils/100 WBC (Bld) 2.7 % Normal 0.9-7.0 [facility] Comment on above: Performed By: #### F T4, PSASC #### [facility] [address] [place] [address] Dr. Benito Schwartz Erythrocyte distribution width (RBC) [Ratio] 13.7 % Normal 11.0-15.0 [facility] Comment on above: Performed By: #### F T4, PSASC #### [facility] [address] [place] [address] Dr. Benito Schwartz Hematocrit (Bld) [Volume fraction] 27.9 % Critically low 42.0-54.0 [facility] Comment on above: Performed By: #### F T4, PSASC #### [facility] [address] [place] [address] Dr. Benito Schwartz Hemoglobin (Bld) [Mass/Vol] 8.9 g/dL Critically low 14.0-18.0 [facility] Comment on above: Performed By: #### F T4, PSASC #### [facility] [address] [place] [address] Dr. Benito Schwartz IG # 0.01 10e3/ul Normal 0.00-0.03 [facility] Comment on above: Performed By: #### F T4, PSASC #### [facility] [address] [place] [address] Dr. Benito Schwartz IG % 0.2 % Normal 0.0-0.5 [facility] Comment on above: Performed By: #### F T4, PSASC #### [facility] [address] [place] [address] Dr. Benito Schwartz LYMPH # 1.3 103/ul Normal 1.2-3.8 [facility] Comment on above: Performed By: #### F T4, PSASC #### [facility] [address] [place] [address] Dr. Benito Schwartz Lymphocytes/100 WBC (Bld) 21.5 % Normal 20.5-60.0 [facility] Comment on above: Performed By: #### F T4, PSASC #### [facility] [address] [place] [address] Dr. Benito Schwartz MANUAL DIFF REQ NO Normal [facility] Comment on above: Performed By: #### F T4, PSASC #### [facility] [address] [place] [address] Dr. Benito Schwartz MCH (RBC) [Entitic mass] 29.5 pg Normal 25.9-34.0 [facility] Comment on above: Performed By: #### F T4, PSASC #### [facility] [address] [place] [address] Dr. Benito Schwartz MCHC (RBC) [Mass/Vol] 31.9 g/dL Normal 29.9-35.2 [facility] Comment on above: Performed By: #### F T4, PSASC #### [facility] [address] [place] [address] Dr. Benito Schwartz MCV (RBC) [Entitic vol] 92.4 fL Normal 80.0-94.0 [facility] Comment on above: Performed By: #### F T4, PSASC #### [facility] [address] [place] [address] Dr. Benito Schwartz MONO # 1.0 103/ul Critically high 0.3-0.8 [facility] Comment on above: Performed By: #### F T4, PSASC #### [facility] [address] [place] [address] Dr. Benito Schwartz Monocytes/100 WBC (Bld) 16.3 % Critically high 1.7-12. 0 [facility] Comment on above: Performed By: #### F T4, PSASC #### [facility] [address] [place] [address] Dr. Benito Schwartz NEUT # 3.5 103/ul Normal 1.4-6.5 [facility] Comment on above: Performed By: #### F T4, PSASC #### [facility] [address] [place] [address] Dr. Benito Schawrtz Neutrophils/100 WBC (Bld) 59.0 % Normal 43.0-75.0 [facility] Comment on above: Performed By: #### F T4, PSASC #### [facility] [address] [place] [address] Dr. Benito Schwartz Platelet mean volume (Bld) [Entitic vol] 9.5 fL Normal 9.5-13.5 [facility] Comment on above: Performed By: #### F T4, PSASC #### [facility] [address] [address] [address] Benito Schwartz PLT 213 103/ul Normal 150-450 [facility] Comment on above: Performed By: #### F T4, PSASC #### [facility] [address] [place] [address] Dr. Benito Schwartz RBC 3.02 106/ul Critically low 4.70-6.10 [facility] Comment on above: Performed By: #### F T4, PSASC #### [facility] [address] [place] [address] Dr. Benito Schwartz WBC 5.9 103/ul Normal 4.0-11.0 [facility] Comment on above: Performed By: #### F T4, PSASC #### [facility] [address] [place] [address] Dr. Benito Schwartz CULTURE BLOODon 03-05-2022 Microscopic examination of blood, culture Culture Observations: NO GROWTH AT 5 DAYS. Normal [facility] Comment on above: Performed By: #### V ITAD #### [facility] [address] [place] [address] Dr. Benito Schwartz [facility] SARS-CoV-2 (COVID-19) RNA ZITA+probe Ql (Unsp spec) Not detected Normal NOT DETECTED [facility] Comment on above: Result Comment: This test is not yet approved or cleared by the [place] FDA. When there are no FDA-approved or cleared tests available, and other criteria are met, FDA can make tests available under an emergency access mechanism called an Emergency Use Authorization (EUA). The EUA for this test is supported by the [employer] Officer of Health and Human Service's (HHS's) declaration [...] SARS-CoV-2. Performed By: #### C BC #### [facility] [address] [place] [address] Dr. Benito Schwartz FREE T4on 03-05-2022 Free T4 [Mass/Vol] ng/dL Critically high 0.76-1.46 [facility] Comment on above: Performed By: #### C BC #### [facility] [address] [place] [address] Dr. Benito Schwartz LACTATE/LACTIC ACIDon 2021 Lactate [Moles/Vol] 1.2 mmol/L Normal 0.4-1.9 [facility] Comment on above: Performed By: #### F T4 #### [facility] [address] [place] [address] Dr. Benito Schwartz PROF 14(COMP METB)on 022 Albumin [Mass/Vol] 2.9 g/dL Critically low 3.4-5.[address] [facility] Comment on above: Performed By: #### F T4, PSASC #### [facility] [address] [place] [address] Dr. Benito Schwartz Albumin/Globulin [Mass ratio] 0.8 {ratio} Normal [facility] Comment on above: Performed By: #### F T4, PSASC #### [facility] [address] [place] [address] Dr. Benito Schwartz ALP [Catalytic activity/Vol] 107 U/L Normal 46-116 [facility] Comment on above: Performed By: #### F T4, PSASC #### [facility] [address] [place] [address] Dr. Benito Schwartz ALT [Catalytic activity/Vol] 25 U/L Normal 16-63 [facility] Comment on above: Performed By: #### F T4, PSASC #### [facility] [address] [place] [address] Dr. Benito Schwartz Anion gap [Moles/Vol] 14.2 mmol/L Normal [facility] Comment on above: Performed By: #### F T4, PSASC #### [facility] [address] [address] [address] Benito Schwartz AST [Catalytic activity/Vol] 17 U/L Normal 15-37 [facility] Comment on above: Performed By: #### F T4, PSASC #### [facility] [address] [address] [address] Benito Schwartz Bilirubin [Mass/Vol] 0.5 mg/dL Normal 0.2-1.0 [facility] Comment on above: Performed By: #### F T4, PSASC #### [facility] [address] [address] [address] Benito Schwartz Calcium [Mass/Vol] 9.1 mg/dL Normal 8.5-10.1 [facility] Comment on above: Performed By: #### F T4, PSASC #### [facility] [address] [address] [address] Benito Schwartz Chloride [Moles/Vol] 104 mmol/L Normal 98-107 [facility] Comment on above: Performed By: #### F T4, PSASC #### [facility] [address] [address] [address] Benito Schwartz CO2 [Moles/Vol] 27.0 mmol/L Normal 21.0-32.0 [facility] Comment on above: Performed By: #### F T4, PSASC #### [facility] [address] [address] [address] Benito Schwartz Creatinine [Mass/Vol] 2.97 mg/dL Critically high 0.70-1.30 [facility] Comment on above: Performed By: #### F T4, PSASC #### [facility] [address] [address] [address] Benito Schwartz EGFR-AF PARAGUAYAN 25 mL/min/1.73m2 Critically low >=60 [facility] Comment on above: Performed By: #### F T4, PSASC #### [facility] [address] [address] [address] Benito Schwartz EGFR-NON AF PARAGUAYAN 21 mL/min/1.73m2 Critically low >=60 [facility] Comment on above: Performed By: #### F T4, PSASC #### [facility] [address] [address] [address] Benito Schwartz Globulin (S) [Mass/Vol] 3.6 g/dL Normal [facility] Comment on above: Performed By: #### F T4, PSASC #### [facility] [address] [place] [address] Dr. Benito Schwartz Glucose [Mass/Vol] 162 mg/dL Critically high 74-106 [facility] Comment on above: Performed By: #### F T4, PSASC #### [facility] [address] [place] [address] Dr. Benito Schwartz Potassium [Moles/Vol] 4.2 mmol/L Normal 3.5-5.1 [facility] Comment on above: Performed By: #### F T4, PSASC #### [facility] [address] [place] [address] Dr. Benito Schwartz Protein [Mass/Vol] 6.5 g/dL Normal 6.4-8.2 [facility] Comment on above: Performed By: #### F T4, PSASC #### [facility] [address] [place] [address] Dr. Benito Schwartz Sodium [Moles/Vol] 141 mmol/L Normal 136-145 [facility] Comment on above: Performed By: #### F T4, PSASC #### [facility] [address] [place] [address] Dr. Benito Schwartz Urea nitrogen [Mass/Vol] 74.0 mg/dL Critically high 7.0-18 .0 [facility] Comment on above: Performed By: #### F T4, PSASC #### [facility] [address] [place] [address] Dr. Benito Schwartz Urea nitrogen/Creatinine [Mass ratio] 24.9 mg/mg Normal [facility] Comment on above: Performed By: #### F T4, PSASC #### [facility] [address] [place] [address] Dr. Benito Schwartz TROPONIN, HIGH SENSITIVITYon 03-05-2022 HSTROP 39.6 pg/mL Normal 4.0-76.1 [facility] Comment on above: Result Comment: CUT- OFF POINTS HAVE BEEN ESTABLISHED BASED ON THE FOURTH UNIVERSAL DEFINITIONS OF MYOCARDIAL INFARCTION. THE UPPER REFERENCE LIMIT (URL) OF TROPONIN, DEFINED THE 99TH PERCENTILE OF cTnI DISTRIBUTION IN A REFERENCE POPULATION, HAS BEEN CONFIRMED THE DECISION THRESHOLD FOR [place] DIAGNOSIS. Performed By: #### F T4, PSASC #### [facility] [address] [address] [address] Benito Schwartz TSHon 03-05-2022 TSH Qn m[IU]/L Critically low 0.358-3.740 [facility] Comment on above: Performed By: #### F T4 #### [facility] [address] [address] [address] Benito Schwartz TSH RANGE SEE BELOW Normal [facility] Comment on above: Result Comment: <0.3 4 UIU/ml HYPERTHYROID 0.34-5.60 UIU/ml EUTHYROID >5.60 UIU/ml HYPOTHYROID Performed By: #### F T4 #### [facility] [address] [address] [address] Benito Schwartz US THYROIDon 03-04-2022 US [...] MALENA RIOS Date: 2022-03-04 13:56 Normal [facility] - Chemistry and C hemistry - challengeOrdered By: Enrrique Mckeon on 02-22-2022 Natriuretic peptide B (Bld) [Mass/Vol] 251.0 pg/mL High 5-100 [facility] TSH DL <= 0.005 mIU/L QnOrde red By: Enrrique Mckeon on 02-22-2022 TSH Qn m[IU]/L Low 0.45-5.33 [facility] Coding Summaryon 07-08-2021 Coding Summary HTMLBase 64 HiljqtuqNCd4oOj+PGh lYWQ+RE4HCGKdG65vdW BajH1HT2yQDO4ICZLEY RWMFH4XQW9rlIR1JDop Z1EhlgJg BfgixYWyYO32PLc3REF 5nLqpLJhiuC1klPBqF8 u0DnTlLE54qA39XHgfA RZgCyV2BwEpwbaymKUm K8rpLuCjbVWsAnm+PHR hYmxlIHdpZHRoPScxMD HnFqHyiDrdSO8qAw6aV GVyLWNvbGxhcHNlOiBj x7vgQIOhLFkbKV1fzEm eR0BkkZB3QXJgi7s8Zy 48dHI+XJXlOFH2iYaeX Mean317FxIrm8zpDQY1 gPFiWJfwIXO6O69de2I 6RWQzUQJxQLB2uJE0sB 1nqNtbzzgoA0EojBFgT qH6ZZO7pKQylE4arImk ldnneO9qNwu+N31NBS8 CHYBDMK9LPjf5E6NtMx wvdHI+LW39KLOkUW89p PZgbZXdx8rzbGd1JyEz RFPoASR1mHbrHCdpl0J aZXOaN54phGDpw5K5FT OrbYmfgPUjPfGpcHF5u T7fZWkyamhob3qlznma Gfcvr7ebdo66nC09K41 kSAbzSJWaUTV1WCSnZJ XkmYqzrz7rnN1sPd0+I Bskh2zuy6lkzMk7YtEl PHZugpFnaBtvCIN4x1B dPz87M3GixLjpz4QrYz n2zm15aTRau7L4pUC9L RohRRBfdD3kGFjxXlY9 VWJyFwNpqP76uGZjATv bNy8jnCjzeOxmAX4qEX LzxjcfPEMswW1bYYTju TZleAjrGC2rZWLigiaq q193UcZqYJV3LZLhdGX iW3AaqU8wCqCzOXXfOL LbC1JnlMCfWZqjZ734R JtcDcX1VRCfguXqV0Tk JUVfzRnqWjB8l9I0Gx8 Fz8TmqfbkDGL1IYqhAQ Q8PtUwWgDxByF7B5VtH ni2IGVltXvsZG2xV2Yo MAHmlzzbznxicFA1COI vSZTztF45gIUjKNlkXw 0mw1I4a222CKWtAGWrt T21Cl1fnUooWYIasGHH qG5wnjhco7yqryflYsV lQATaKTo5MOj5LITwfY dkRwCrIZO9GjO0OLT0q NCsoJ1weJtwthmeuV4k Oyc+A20jxW5eTSQ3YBT 3vdlrUHSuukJzGR65RU 61Y2XcBhrxgDGrzRK+P QRfcjCplGuaVN7iBvKl v1hoo5MzGYdbH2XiWAO tMGfvQsx2EVBzOTB4nW H6bA9bXQRpQDyae4S6n GJ9Q7WodwHnql0fu6yz HCLkDTbxY28neCFwp1M 5CULyyOH4VJDhmWoeAr UffV09Aau+PGNvbGdyb 5QzXucwm6dqp0irfUx3 IjMwJSIgdmFsaWduPSJ 7w7HfLg80O92nNRweAP RoPSIxNSUiIHZhbGlnb c1xgV4oSa0+PGNvbCB3 dDB4hZ3wUSOpTnU7CHm jH063PxInfIHlRicnr1 uyz1hadPc8GoZxOMSlm vJycTsmDUZ9a5ThYa70 B04wQDmhEYMfFBSzPHQ jEAQroQpzbo0lqA5wAn 8+IE2iy2sccp01uF04v HI+TXBkXIE3cKfmKJab VPFxhN4wYKgdBpE0YTO sGaCwxK85zXOePOwwBf 8srEennAhrUN6eYQXeb zwdd562GjDjq7fwPUPd tEIrMUlgGYJ4E12jm7U 5VRLdDFThWQP7vNB2jU 1hbGlnbjogbGVmdDsgd zCebBfdNGejREmtT430 IHRvcDsnPlBhdGllbnQ fAtOgQRx8C1HyJkt0SC UpwVqaJK7yaNMqZKqgI p4fjFpqbStdEN5mDTYo sdpsk591IoUwa3itYSX gnBXvJAjxMZF4G41jk8 E0KTUjNLFpCIT0jTP0f Z5ofKkppdswwPWnuDcp lpTqgFltYWurYGvmJ43 6IHRvcDsnPkJpcnRoIE GziNQ4JM62GX74bROwa 8M5vIQ9E4WzCFCwzpso tsqqcLQ8KFHtQEAtfC5 4Ey9ftTotFc4kUXXjUN B0KMZzqEQrB5HhaL5kW mBpAUCjLUWbK1PtaLKg YGnbC438YNmvRoQ3DKY xmgNdZ5ItJHVwkQpzQw E0s1I6Ku0VC1I0RG78U J47kYKgv5J9sMI3R8Ao FNZlqnmjfelpvIP0QJJ rVLLmlE65Fw8pbIssSz 9aQTUtCHS3FFMikXQmV 1XcvI8zJqHeEOApWKQv M4KoeHKaFOomQ041UHq eIhD8RLLbfcXhN5SdZQ YgqHafKsC1b3K2Ir4NZ Gw1BU02WF37fXOyo3L0 sZS9C1SsHWGavrczima jmSB8ZNNmNXIobW65Jy 2dpCxmYl6kJMPrFAT8W RZgdILfP2OozA2sZeKe LNTxYKMhR1MnaVZhUHz bR478FAewJxY5GKIgzx JkO7SuYVFsaBzbOcT5v 0F4Wl8RRGYoVW61BGO8 kZC7KV36MI78P7TqXry vdGFibGU+PHRhYmxlIH dpZHRoPScxMDAlJyBzd DjbJU6dHw5lKLDjQZEc qBpyfFIzAwWow1ejEER hEIehEF5kzUzoO7VmpM J1ZDIov0f4Up28P71aS 3JvdXA+FIOrlMP7gMM8 pP0zOkYgDlF2TKgtH78 7HnVmwOHnCfnrr1llb4 jzwAw8JfV9OQCacdExb VmdQSW9q2WqIk67B93x IHdpZHRoPSIxNSUiIHZ rsAluvh7daP0gOo8+PG DdsTH6mLF6zW0qCrMnT wJ6VFvqA743GgKurZMw Jxxyg3mit4qlaVs8HlB dMLKwcxZugVohBJQ9c4 PiFy42I1EjkGqpp0KzN cu7xi60lRNzn0N4xTW2 B8FtUAJlwvssmAHsjQe nCZ2bSAWcjbgsLMTluF 1aAUJpE0x3PoCfLuX9N KpmZ2JqgrQ7GBVgkJZa WVdxQUT0L34ek3B9VIY kANAbUAL1rWB4fF8kiX lnbjogbGVmdDsgdmVyd HkaEKyaNWseF402QHYf gTzkVQRaoD2tDKLzyJY byJfvEY2wCOJdueafQp YGFGNSCxhdImZRTqw0Q 3VsUun3XYFpkVyuGG8x xTIaDOzvGz3qtAnbcTw yCF6bXCDrhlppXNKncR 8qTDJlmUTxdBcqGE5pW CRgmdvtu132CpSzBFI5 SXLbsCZeT4JgfV4tMwG nATAzEOVlL4KjoHWxHE ogC449LJrrTtJ4RLCbj sXeH1BxQBCnvGmbWzN8 o1N0Sz9fLn0pAE0bJEZ bDV93DQ94eMPkl6H4nR H0U6MfVLFmtxhrqboav DO5BJUgKFFwxF98mABg DJxeKp4mx4N9g122DZG lQAQunF98Ek9hsKvwUT PvdXLPsT9megcij2pgx zniNgSdBQMgWRz1LCn9 WIGncDiuJqSgAQX8QpP 4WEB3pJPwdS9suXncoc qxuN4uYnp+NzkgWWVhc uT7B7CbMuq1IRGxuNny OZ8imQQhGZvuAz3adJs jtVnuVT1qNTEweynyKQ TanE3nEWRyuFAdjPxmU O0fRCUdsqigy441KcOw VFW3ITGnfOGjR2AqnR7 rKgLcLHIoLNRsN1AdkD GuOKzkP186EDupMlT6W XLnhjJdA5XgTMSmgVvs LxG1k0F2Ag8RZQiUVF5 1AT53gHAqi8G9fCI6L7 OcHHQgxnlsijvvpZQ6H FJoGWIfiU53mKIzBZmm Vl2up3T1l727DIVwEAD xjK16Qb8ljXbvSCEokK EToD6yexome2stazykE fLqJCQtSDs6GQj9FZFn oPwvQaCwJSP8QpK4QIN 6jGTmjQ9trDeayuugsW 9wOyc+K7T4P4XgJamlo HI+BF22YVLlES59qIIe uPVye7gpuBs0DwCaSOR bFGZ6sZubAMknq9DgVK CfB36flSUde7D0WDOhc EzxjUKlDlIxpLA4iX2a WTxtddlvp4ojqdeaEmk jh5yarx99uL86G32fNF dpZHRoPSIzMCUiIHZhb Fvied2evY6gLa3+PGNv mQY0jNR7cF8iBaHxKcE 6OCjeW241KuFuaFKmVw ppi1bmr2oajAg1WtHuV JPvxbZtjPbpFVI3r6De Wr17M44eYSzgHCMlHXF kLZUuZNPxkYrhre7osR 9wIi8+YJ7ow8ydzx86o D48dHI+BCMqEKD5uKtz BBkjHOIbtR4kAUdkQhE 3LHQhJiWtcK15dDRdDH hlQj4tnZvtnSyxUV5zD VGibajva312FyHwc9uk KFRsiSTzKFmwQXJ3N27 ws2E0ZVJjLLFiQAQ8mK C3nR2qnFscxslkzTUnj DsgdmVydGljYWwtYWxp Z623YDJyaBkoFfQvxFN fI3cmdxFWFU2rUedqeM Q+POZrBMD5sCymCDclA HYfmZ8nIPApJ5y0OoFk NrF2THawB3WefnF9CMN ngBKsSVTatZFJbP3zjt xmc7zrtisgVbMsTTVgN Gd8WPp5QPXfeWzdIfFf KVG0NeX7XLH9kVTxqF2 aaAysodbtyV7yQdd+Rk lOOjwvdGQ+SNBoIDF7z FboBXbdOURevJ7aETIb W2c3WbBtMnC9PTanA4X aqwX9OZXioAEhLLMbeG VCiL8ntxyro5ozvuapJ xYyYSYbVJv6KRw8TUDd uRriLdDxMHC4ArL0XLF 2gXEoqC5hnJcmyxpayS 9wOyc+TVJOOjwvdGQ+P ADuYOL6vXcwOKhkWLLg jE5lMOOoI9g7GpBlRtM 9UNmaX3GkxwK7RROljL NiQGGviKAYkD2qmydyo 2pgcktgNyVkGMOpUDk1 MNm1LZVqsCojCrMrJHB 8KmB4YXA9mXWskO7wgH uweclufD9lZdr+UGF5Z UU5PA49YG51C2IaDwtk dGFibGU+PHRhYmxlIHd pZHRoPScxMDAlJyBzdH rtTT3aCd7wVRGrWODpn VbbbUPmJuMxc5ybNVTh ZTs (more content not included)... Normal [facility] Provider Orderson 07-05-2021 Provider Orders [id number] Normal [facility] Creatinine Lvlon 07-02-2021 eGFR Non AA 29 mL/min/1.73m2 Invalid Interpretation Code [facility] Comment on above: Performed By: #### [id number] #### [facility] (DEFAULT) [address] [place] [id number] eGFR AA 35 mL/min/1.73m2 Invalid Interpretation Code [facility] [facility] Comment on above: Result Comment: Cooperer hilda Kidney disease could be indicated at eGFRs of less than 60 ml/min/1.73m2. Kidney Failure is indicated at less than 15 ml/min/1.73m2 Performed By: #### [id number] #### [facility] (DEFAULT) [address] [place] [id number] Creatinine [Mass/Vol] 2.19 mg/dL High 0.90-1.30 [facility] Comment on above: Performed By: #### [id number] #### [facility] (DEFAULT) [address] [place] [address] Vital Signs Date Time Vital Sign Value Performing Clinician Facility 08-08-2024 10:27-0400 Diastolic blood pressure 80 mm[Hg] [facility] 08-08-2024 10:27-0400 Heart rate 72 /min Avery Syed MD Work Phone: [facility] 08-08-2024 10:27-0400 Systolic blood pressure 150 mm[Hg] Avery Syed MD Work Phone: [facility] 08-08-2024 10:25-0400 Body height 180.3 cm Avery Syed MD Work Phone: [facility] 08-08-2024 10:25-0400 Body mass index (BMI) [Ratio] 30.52 kg/m2 Avery Syed MD Work Phone: [facility] 08-08-2024 10:25-0400 Body weight 99.25 kg Avery Syed MD Work Phone: [facility] 07-09-2024 10:33-0400 Diastolic blood pressure 74 mm[Hg] Randall Pancho DO Work Phone: [facility] 07-09-2024 10:33-0400 Heart rate 70 /min Randall Pancho DO Work Phone: [facility] 07-09-2024 10:33-0400 SaO2% (BldA) [Mass fraction] 93 % Randall Pancho DO Work Phone: [facility] 07-09-2024 10:33-0400 Systolic blood pressure 136 mm[Hg] Randall Pancho DO Work Phone: [facility] 04-22-2024 10:44-0400 Body height 180.34 cm DO Arnie Ball Work Phone: [facility] 04-22-2024 10:44-0400 Body mass index (BMI) [Ratio] 30.2 kg/m2 DO Arnie Ball Work Phone: [facility] 04-22-2024 10:44-0400 Body weight 98.14 kg DO Arnie Ball Work Phone: [facility] 04-22-2024 10:44-0400 Diastolic blood pressure 69 mm[Hg] DO Arnie Ball Work Phone: [facility] 04-22-2024 10:44-0400 Heart rate 73 /min DO Arnie Ball Work Phone: [facility] 04-22-2024 10:44-0400 Respiratory rate 12 /min DO Ranie Ball Work Phone: [facility] 04-22-2024 10:44-0400 Systolic blood pressure 135 mm[Hg] DO Arnie Ball Work Phone: [facility] 03-01-2024 11:11-0400 Body height 180.34 cm DO Arnie Ball Work Phone: [facility] 03-01-2024 11:11-0400 Body mass index (BMI) [Ratio] 30.1 kg/m2 DO Arnie Ball Work Phone: [facility] 03-01-2024 11:11-0400 Body temperature 98 [degF] DO Arnie Ball Work Phone: [facility] 03-01-2024 11:11-0400 Body weight 97.97 kg DO Arnie Ball Work Phone: [facility] 03-01-2024 11:11-0400 Diastolic blood pressure 75 mm[Hg] DO Arnie Ball Work Phone: [facility] 03-01-2024 11:11-0400 Heart rate 67 /min DO Arnie Ball Work Phone: [facility] 03-01-2024 11:11-0400 Respiratory rate 18 /min DO Arnie Ball Work Phone: [facility] 03-01-2024 11:11-0400 SaO2% (BldA) [Mass fraction] 95 % DO Arnie Ball Work Phone: [facility] 03-01-2024 11:11-0400 Systolic blood pressure 158 mm[Hg] DO Arnie Ball Work Phone: [facility] 12-18-2023 10:07-0500 Body height 180.34 cm DO Arnie Ball Work Phone: [facility] 12-18-2023 10:07-0500 Body mass index (BMI) [Ratio] 30.2 kg/m2 DO Arnie Ball Work Phone: [facility] 12-18-2023 10:07-0500 Body weight 98.2 kg DO Arnie Ball Work Phone: [facility] 12-18-2023 10:07-0500 Diastolic blood pressure 76 mm[Hg] DO Arnie Ball Work Phone: [facility] 12-18-2023 10:07-0500 Heart rate 72 /min DO Arnie Ball Work Phone: [facility] 12-18-2023 10:07-0500 Respiratory rate 12 /min DO Arnie Ball Work Phone: [facility] 12-18-2023 10:07-0500 Systolic blood pressure 131 mm[Hg] DO Arnie Ball Work Phone: [facility] 09-01-2023 13:51-0500 Body height 180.34 cm DO Arnie Ball Work Phone: [facility] 09-01-2023 13:51-0500 Body temperature 97.7 [degF] DO Arnie Ball Work Phone: [facility] 09-01-2023 13:51-0500 Body weight 98.02 kg DO Arnie Ball Work Phone: [facility] 09-01-2023 13:51-0500 Diastolic blood pressure 79 mm[Hg] DO Arnie Ball Work Phone: [facility] 09-01-2023 13:51-0500 Heart rate 70 /min DO Arnie Ball Work Phone: [facility] 09-01-2023 13:51-0500 Respiratory rate 20 /min DO Arnie Ball Work Phone: [facility] 09-01-2023 13:51-0500 SaO2% (BldA) [Mass fraction] 96 % DO Arnie Ball Work Phone: [facility] 09-01-2023 13:51-0500 Systolic blood pressure 147 mm[Hg] DO Arnie Ball Work Phone: [facility] 08-22-2023 10:00-0500 Body height Arnie Ball Other [employer] Other 08-22-2023 10:00-0500 Body mass index (BMI) [Ratio] 29.35 kg/m2 Arnie Ball Other [employer] Other 08-22-2023 10:00-0500 Body weight 98.16 kg Arnie Ball Other [employer] Other 08-22-2023 10:00-0500 Diastolic blood pressure 74 mm[Hg] Arnie Ball Other [employer] Other 08-22-2023 10:00-0500 Respiratory rate 12 /min Arnie Ball Other [employer] Other 08-22-2023 10:00-0500 Systolic blood pressure 135 mm[Hg] Arnie Ball Other [employer] Other 04-20-2023 09:30-0400 Body height Arnie Ball Other [employer] Other 04-20-2023 09:30-0400 Body mass index (BMI) [Ratio] 29.62 kg/m2 Arnie Ball Other [employer] Other 04-20-2023 09:30-0400 Body weight 99.07 kg Arnie Ball Other [employer] Other 04-20-2023 09:30-0400 Diastolic blood pressure 64 mm[Hg] Arnie Ball Other [employer] Other 04-20-2023 09:30-0400 Respiratory rate 12 /min Arnie Ball Other [employer] Other 04-20-2023 09:30-0400 Systolic blood pressure 113 mm[Hg] Arnie Ball Other [employer] Other 12-15-2022 10:00-0500 Body height Arnie Ball Other [employer] Other 12-15-2022 10:00-0500 Body mass index (BMI) [Ratio] 29.81 kg/m2 Arnie Ball Other [employer] Other 12-15-2022 10:00-0500 Body weight 99.7 kg Arnie Ball Other [employer] Other 12-15-2022 10:00-0500 Diastolic blood pressure 70 mm[Hg] Arnie Ball Other [employer] Other 12-15-2022 10:00-0500 Respiratory rate 12 /min Arnie Ball Other [employer] Other 12-15-2022 10:00-0500 Systolic blood pressure 122 mm[Hg] Arnie Ball Other [employer] Other 09-02-2022 14:11-0500 Body weight 98.9 kg DO Arnie Ball Work Phone: [facility] 09-02-2022 14:11-0500 Diastolic blood pressure 72 mm[Hg] DO Arnie Ball Work Phone: [facility] 09-02-2022 14:11-0500 Heart rate 60 /min DO Arnie Ball Work Phone: [facility] 09-02-2022 14:11-0500 Respiratory rate 20 /min DO Arnie Ball Work Phone: [facility] 09-02-2022 14:11-0500 SaO2% (BldA) [Mass fraction] 96 % DO Arine Ball Work Phone: [facility] 09-02-2022 14:11-0500 Systolic blood pressure 153 mm[Hg] DO Arnie Ball Work Phone: [facility] 07-21-2022 10:13-0400 Diastolic blood pressure 64 mm[Hg] DO Arnie Ball Work Phone: [facility] 07-21-2022 10:13-0400 Heart rate 60 /min DO Arnie Ball Work Phone: [facility] 07-21-2022 10:13-0400 Respiratory rate 16 /min DO Arnie Ball Work Phone: [facility] 07-21-2022 10:13-0400 SaO2% (BldA) [Mass fraction] 95 % DO Arnie Ball Work Phone: [facility] 07-21-2022 10:13-0400 Systolic blood pressure 135 mm[Hg] DO Arnie Ball Work Phone: [facility] 07-21-2022 08:10-0400 Body height 180.34 cm DO Arnie Ball Work Phone: [facility] 07-21-2022 08:10-0400 Body temperature 98.2 [degF] DO Arnie Ball Work Phone: [facility] 07-21-2022 08:10-0400 Body weight 90.71 kg DO Arnie Ball Work Phone: [facility] 06-17-2022 10:25-0400 Body temperature 98.2 [degF] DO Arnie Ball Work Phone: [facility] 06-17-2022 10:25-0400 Diastolic blood pressure 58 mm[Hg] DO Arnie Ball Work Phone: [facility] 06-17-2022 10:25-0400 Heart rate 62 /min DO Arnie Ball Work Phone: [facility] 06-17-2022 10:25-0400 Respiratory rate 18 /min DO Arnie Ball Work Phone: [facility] 06-17-2022 10:25-0400 SaO2% (BldA) [Mass fraction] 98 % DO Arnie Ball Work Phone: [facility] 06-17-2022 10:25-0400 Systolic blood pressure 124 mm[Hg] DO Arnie Ball Work Phone: [facility] 06-03-2022 09:55-0400 Body height 180.34 cm DO Arnie Ball Work Phone: [facility] 06-03-2022 09:55-0400 Body weight 92.85 kg DO Arnie Ball Work Phone: [facility] Encounters Encounter Date Encounter Type Care Provider Facility Start: 10-03-2024 ambulatory [facility] Start: 09-30-2024 ambulatory [facility] Start: 09-17-2024 ambulatory [facility] Start: 09-10-2024 End: 09-10-2024 ambulatory [facility] Start: 09-02-2024 ambulatory [facility] Start: 08-22-2024 End: 08-22-2024 ambulatory Ramesh Rascon Facility:[facility] Start: 08-21-2024 End: 08-21-2024 Bamboo flowsheet Marilin Clay CCC-A Work Phone: [facility] Start: 08-21-2024 End: 08-21-2024 Bamboo flowsheet Marilin Clay CCC-A Work Phone: [facility] Start: 08-21-2024 End: 08-21-2024 Clinical Support Marilin Clay CCC-A Work Phone: [facility] Comment on above: Bilateral impacted c erumen (Primary Dx) Start: 08-08-2024 End: 08-08-2024 Office outpatient visit 25 minutes Avery Syed MD Work Phone: [facility] Comment on above: Stage 4 chronic kidn ey disease (CMS-HCC) (Primary Dx) Start: 08-01-2024 ambulatory [facility] Start: 07-30-2024 ambulatory [facility] Start: 07-24-2024 End: 07-24-2024 ambulatory ENRRI[facility] Start: 07-22-2024 ambulatory [facility] Start: 07-17-2024 ambulatory [facility] Start: 07-09-2024 End: 07-09-2024 Bamboo flowsheet Randall Deleon DO Work Phone: [employer] [facility] Start: 07-09-2024 End: 07-09-2024 Bamboo flowsheet Randall Deleon DO Work Phone: [employer] [facility] [address] Start: 07-09-2024 End: 07-09-2024 Office outpatient visit 25 minutes Randall Deleon DO Work Phone: [employer] [facility] Comment on above: MOLINA (obstructive sle ep apnea) (Primary Dx); Hypersomnia; Primary insomnia; Snoring; Hypoxia Start: 07-09-2024 End: 07-09-2024 ambulatory RANDALL DELEON Not Available Start: 06-26-2024 ambulatory [facility] Start: 2024 ambulatory GREG ALEJANDRE [facility] Start: 04-22-2024 End: 04-22-2024 ambulatory DO Arnie Linda Work Phone: [facility] Work Phone: Start: 04-22-2024 End: 04-22-2024 Patient encounter procedure DO Arnie Linda Work Phone: [facility] Work Phone: Start: 04-11-2024 ambulatory [facility] Start: 04-09-2024 ambulatory TRANG [facility] Start: 04-02-2024 ambulatory GREG [facility] Start: 04-02-2024 Encounter for preprocedural cardiovascular examination [facility] Start: 03-29-2024 End: 03-29-2024 ambulatory DAWN LARAEMILEEJOSHUA [facility] Start: 03-05-2024 End: 03-05-2024 ambulatory TRANG [facility] Start: 03-01-2024 End: 03-01-2024 ambulatory DO Arnie Linda Work Phone: [facility] Work Phone: Start: 03-01-2024 End: 03-01-2024 Patient encounter procedure DO Arnie Maddi Work Phone: [facility] Work Phone: Start: 03-01-2024 Registered Recurring DO Jeremi in Ball [facility] Work Phone: Start: 02-21-2024 End: 02-21-2024 ambulatory RANDALL PANCHO Not Available Start: 02-01-2024 Non-patient / Non-visit DO Aguilar albert Linda Work Phone: [facility] Work Phone: Start: 12-19-2023 Non-patient / Non-visit DO Aguilar Linda Work Phone: [facility] Work Phone: Start: 12-18-2023 End: 12-18-2023 ambulatory Arnie Maddi Other [facility] [employer] Other Start: 12-18-2023 Telephone encounter Arnie Linda [facility] Start: 12-18-2023 End: 12-18-2023 Patient encounter procedure DO Arnie Ball Work Phone: [facility] Work Phone: Start: 09-29-2023 End: 09-29-2023 ambulatory Arnie Ball Other [employer] Other Start: 09-29-2023 Telephone encounter Arnie Ball [facility] Start: 09-01-2023 End: 09-01-2023 Registered Recurring DO Arnie Ball Work Phone: [facility] Work Phone: Start: 09-01-2023 End: 09-01-2023 ambulatory DO Arnie Linda Work Phone: [facility] Work Phone: Start: 08-27-2023 End: 08-27-2023 ambulatory Arnie Ball Other [employer] Other Start: 08-27-2023 Telephone encounter Arnie Ball [facility] Start: 08-22-2023 End: 08-22-2023 ambulatory Arnie Ball Other [employer] Other Start: 08-22-2023 Office outpatient vi sit 25 minutes Arnie Maddi [facility] Start: 07-03-2023 End: 07-03-2023 ambulatory Arnie Ball Other [employer] Other Start: 07-03-2023 Telephone encounter Arnie Ball [facility] Start: 07-01-2023 End: 07-01-2023 ambulatory Arnie Ball Other [employer] Other Start: 07-01-2023 Telephone encounter Arnie Ball [facility] Start: 06-22-2023 End: 06-22-2023 ambulatory Arnie Ball Other [employer] Other Start: 06-22-2023 Telephone encounter Arnie Ball [facility] Start: 06-12-2023 End: 06-12-2023 ambulatory Arnie Linda Other [employer] Other Start: 06-12-2023 Telephone encounter Arnie Ball [facility] Start: 04-26-2023 End: 04-26-2023 ambulatory Arnie Ball Other [employer] Other Start: 04-26-2023 Telephone encounter Arnie Ball [facility] Start: 04-20-2023 End: 04-20-2023 ambulatory Arnie Ball Other [employer] Other Start: 04-20-2023 Office outpatient vi sit 25 minutes Arnie Ball [facility] Start: 03-14-2023 End: 03-14-2023 ambulatory Arnie Ball Other [employer] Other Start: 03-14-2023 Telephone encounter Arnie Linda [facility] Start: 02-28-2023 End: 03-01-[address] DOCTOR EDWARDS Facility:[facility] Start: 02-15-2023 Telephone encounter Arnie Linda [facility] Start: 02-15-2023 End: 02-16-[address] DOCTOR EDWARDS [facility] Other Start: 02-14-2023 End: 02-14-2023 ambulatory Arnie Linda Other [employer] Other Start: 02-14-2023 Telephone encounter Arnie Ball [facility] Start: 01-11-2023 End: 01-11-2023 ambulatory Arnie Ball Other [employer] Other Start: 01-11-2023 Office outpatient vi sit 15 minutes Arnie Ball [facility] Start: 01-02-2023 End: 01-03-2023 ambulatory AVERY SYED MD Facility:[facility] Start: 12-15-2022 End: 12-15-2022 ambulatory Arnie Ball Other [employer] Other Start: 12-15-2022 Patient encounter procedure [facility] Start: 11-16-2022 End: 11-17-[address] ARNIE LINDA Facility:[facility] Start: 11-14-2022 End: 11-14-2022 ambulatory Arnie Linda Other [facility] [employer] Other Start: 11-14-2022 Telephone encounter Arnie CARRASCO [facility] Start: 10-03-2022 End: 10-04-[address] ARNIE LINDA Facility:[facility] Start: 09-22-2022 End: 09-23-[address] DOCTOR EDWARDS Facility:[facility] Start: 09-09-2022 End: 09-10-[address] DOCTOR EDWARDS Facility:[facility] Start: 09-02-2022 End: 09-02-2022 ambulatory DO Arnie Linda Work Phone: [facility] Work Phone: Start: 09-02-2022 End: 09-02-2022 Registered Recurring DO Arnie Linda Work Phone: [facility] Start: 08-30-2022 End: 08-31-[address] ARNIE LINDA Facility:[facility] Start: 07-21-2022 End: 07-21-2022 Admission to same day surgery center DO Arnie Linda Work Phone: [facility] Start: 07-21-2022 End: 07-21-2022 ambulatory DO Arnie Linda Work Phone: [facility] Work Phone: Start: 07-20-2022 End: 07-21-[address] ARNIE LINDA Facility:[facility] Start: 07-19-2022 End: 07-19-2022 ambulatory DO Arnie Linda Work Phone: [facility] Work Phone: Start: 07-19-2022 End: 07-19-2022 Patient encounter procedure DO Arnie Linda Work Phone: [facility] Start: 07-07-[address] DAWN Rodgers ility:[facility] Start: 06-21-2022 Adult health examination Gume Linda Other [employer] Other Start: 06-17-2022 Registered Recurring DO Jeremi Linda [facility] Start: 06-03-2022 End: 06-03-2022 Registered Recurring DO Arnie Linda [facility] Start: 05-31-2022 End: 05-31-2022 Patient encounter procedure DO Arnie Linda Work Phone: [facility] [place] Start: 05-12-2022 End: 05-13-2022 ambulatory AVERY SYED MD Facility:[facility] Start: 05-10-2022 End: 05-11-2022 ambulatory FERMIN SANCHEZ Facility:[facility] Start: 04-26-2022 End: 04-27-[address] DOCTOR EDWARDS Facility:[facility] Start: 04-11-2022 End: 07-07-[address] ARNIE LINDA Facility:[facility] Start: 04-08-2022 End: 04-09-[address] ARNIE LINDA Facility:[facility] Start: 03-30-2022 End: 04-02-2022 Evaluation and management of inpatient GILMER CHADWICK Facility:[facility] Start: 03-25-2022 End: 03-26-2022 ambulatory ENRRIQUE MCKEON Facility:[facility] Start: 03-11-2022 ambulatory ENRRIQUE MCKEON Facility :[facility] Start: 03-06-2022 End: 03-07-2022 Evaluation and management of inpatient DR RUPINDER GRIGSBY . Facility:[facility] Start: 03-04-2022 End: 03-05-[address] ARNIE LINDA Facility:[facility] Start: 08-17-2021 End: 08-17-2021 Pre-procedure evaluation check Arnie Linda Other [employer] Other Start: 08-15-2021 Bradycardia DO Arnie neumann Work Phone: [facility] Procedures Date Procedure Procedure Detail Performing Clinician Start: 02-22-2024 CT of abdomen and pe lvis without contrast DO Arnie Ball Work Phone: Start: 02-22-2024 CT of chest without contrast DO Arnie Ball Work Phone: Start: 08-30-2023 CT of abdomen and pe lvis without contrast DO Arnie Ball Work Phone: Start: 08-30-2023 CT of chest without contrast DO Arnie Ball Work Phone: Start: 08-30-2023 Carcinoembryonic antigen cea Ramesh Rascon Comment on above: Result Comment: PERF ORMED BY: [facility] [address] [place] [address] PATHOLOGIST GRIDDLE ATTENDANT TRU UMANZOR M.D. Performed By: #### C EA, CBC, FE and TIBC, CMP, TONY ####[facility] [address] [place] [address] [facility] Start: 02-28-2023 CT of abdomen and pe lvis without contrast DO Arnie Ball Work Phone: Start: 02-28-2023 CT of chest without contrast DO Arnie Ball Work Phone: Start: 01-02-2023 PSA screening FERMIN [place] [facility] Comment on above: Performed By: #### F T4, PSASC #### [facility] [address] [address] [address] Benito Schwartz Start: 08-31-2022 CT of [...] Adult BMI Screening Adult BMI Screen ing Differential Start: 02-06-2025 End: 08-08-2025 Basic metabolic 2000 panel - Serum or Plasma Basic Metabolic Panel Lab Routine Stage 4 chronic kidney disease ([facility]-H[facility]) Expected: 02/06/2025 (Approximate), Expires: 08/08/2025 [facility] Work Phone: Comment on above: Expected: 02/06/2025 (Approximate), Expires: 08/08/2025 Start: 02-06-2025 End: 08-08-2025 CBC panel - Blood by Automated count CBC without diff Lab Routine Stage 4 chronic kidney disease (CMS-HCC) Expected: 02/06/2025 (Approximate), Expires: 08/08/2025 Differential Comment on above: Expected: 02/06/2025 (Approximate), Expires: 08/08/2025 Start: 02-06-2025 End: 08-08-2025 Magnesium [Mass/volume] in Serum or Plasma Magnesium Lab Routine Stage 4 chronic kidney disease (CMS-HCC) Expected: 02/06/2025 (Approximate), Expires: 08/08/2025 Differential Comment on above: Expected: 02/06/2025 (Approximate), Expires: 08/08/2025 Start: 02-06-2025 End: 08-08-2025 Parathyroid Hormone, intact Parathyroid Hormone, intact Lab Routine Stage 4 chronic kidney disease ([facility]) Expected: 02/06/2025 (Approximate), Expires: 08/08/2025 [facility] Comment on above: Expected: 02/06/2025 (Approximate), Expires: 08/08/2025 Start: 02-06-2025 End: 08-08-2025 Phosphate [Mass/volume] in Serum or Plasma Phosphorus Lab Routine Stage 4 chronic kidney disease ([facility]) Expected: 02/06/2025 (Approximate), Expires: 08/08/2025 [facility] Comment on above: Expected: 02/06/2025 (Approximate), Expires: 08/08/2025 Start: 02-06-2025 End: 08-08-2025 Protein creat ratio Protein creat ratio Lab Routine Stage 4 chronic kidney disease ([facility]) Expected: 02/06/2025 (Approximate), Expires: 08/08/2025 [facility] Comment on above: Expected: 02/06/2025 (Approximate), Expires: 08/08/2025 Start: 12-04-2024 End: 12-04-2024 Clinical Support 12/04/2024 1:00 PM EST Clinical Support [facility] [address] [place] [address] Marilin Clay, [facility] [address] [place] [address] [facility] Start: 08-21-2024 End: 08-21-2024 Clinical Support [facility] Comment on above: Arrived Start: 08-15-2024 End: 08-08-2025 Protein creat ratio Protein creat ratio Lab Routine Stage 4 chronic kidney disease ([facility]) Expected: 08/15/2024 (Approximate), Expires: 08/08/2025 [facility] Comment on above: Expected: 08/15/2024 (Approximate), Expires: 08/08/2025 Start: 07-09-2024 End: 07-09-2024 Patient encounter procedure 07/09/2024 10:30 AM EDT Office Visit [address] [place] [id number] Randall Deleon DO [address] [place] [address] [facility] Comment on above: Arrived Start: 06-16-2024 Influenza vaccination Influenza Vacc ine (#1) [facility] Start: 07-21-2022 [facility] Start: 06-17-2022 Registered Recurring Colon cancer [facility] Start: 06-17-2022 [facility] Start: 06-10-2022 [facility] Start: 02-22-2022 CT abdomen pelvis w con CT abd omen pelvis w con [facility] Start: 02-22-2022 CT chest w con CT chest w con [facility] Start: 2007 Fall Risk Screening Fall Risk Screen ing [facility] Start: 1992 Administration of varicella zoster vaccine Zoster (Shingles) Vaccine (1 of 2) [facility] Start: 1961 DTaP,Tdap and Td Vac cines (1 - Tdap) DTaP,Tdap and Td Vaccines (1 - Tdap) [facility] Start: 1954 Depression Screening Depression Scre ening [facility] Start: 1954 Tobacco Screening Tobacco Screening [facility] Start: 1942 Medicare Annual Well ness Visit Medicare Annual Wellness Visit [facility] Carcinoembryonic Ag [Mass/volume] in Serum or Plasma [facility] Work Phone: Carcinoembryonic Ag [Mass/volume] in Serum or Plasma [facility] Carcinoembryonic Ag [Mass/volume] in Serum or Plasma [facility] Comprehensive metabo lic 2000 panel - Serum or Plasma [facility] Work Phone: Comprehensive metabo lic 1999 panel - Serum or Plasma [facility] Comprehensive metabo lic 1999 panel - Serum or Plasma [facility] Comprehensive metabo lic 1999 panel - Serum or Plasma [facility] Comprehensive metabo lic 1999 panel - Serum or Plasma [facility] Comprehensive metabo lic 1999 panel - Serum or Plasma [facility] CT Abdomen and Pelvi s W contrast IV [facility] Work Phone: CT Abdomen and Pelvi s W contrast IV [facility] CT Abdomen and Pelvi s W contrast IV [facility] CT Abdomen and Pelvi s W contrast IV [facility] CT Abdomen and Pelvi s WO contrast [facility] Work Phone: CT Abdomen and Pelvi s WO contrast [facility] CT Abdomen and Pelvi s WO contrast [facility] CT Chest W contrast IV [facility] Work Phone: CT Chest W contrast IV [facility] CT Chest W contrast IV [facility] CT Chest W contrast IV [facility] CT [facility] Work Phone: [facility] CT Chest WO contrast [facility] Erythropoietin (EPO) [Units/volume] in Serum or Plasma [facility] Ferritin [Mass/volum e] in Serum or Plasma [facility] Patient Education Hemorrhoids [place] vij[place] Polyps [facility] Work Phone: End: 08-08-2025 Urinalysis Urinalysis Lab Routine Stage 4 chronic kidney disease (CMS-HCC) 1 Occurrences starting 08/08/2024 until 08/08/2025 [employer] Comment on above: 1 Occurrences starti ng 08/08/2024 until 08/08/2025 [facility] Immunizations Immunization Date Immunization Notes Care Provider Law blair 07-15-2024 influenza virus vaccine, unspecified formulation Marilin Clay CCC-A Work Phone: [facility] 07-11-2023 influenza virus vaccine, unspecified formulation Randall Deleon DO Work Phone: [facility] 07-10-2022 COVID-19 Pfizer (bivalent) Arnie Linda Other [facility] 07-10-2022 COVID-19 Pfizer (Pediatric) Arnie Linda Other [facility] 07-04-2022 influenza virus vaccine, split virus (incl. purified surface antigen) Arnie Linda Other [facility] [employer] Other 07-04-2022 influenza virus vaccine, unspecified formulation DO Arnie Linda Work Phone: [facility] 07-04-2022 influenza, high dose seasonal, preservative-free Arnie Linda Other [facility] [employer] Other 02-07-2022 COVID-19 Pfizer Arnie pedroza Other [facility] 02-07-2022 COVID-19 Vaccine Pfi zer - Documentation Purposes Only Arnie Linda Other [facility] 07-28-2021 influenza virus vaccine, split virus (incl. purified surface antigen) Arnie Linda Other [facility] [employer] Other 07-28-2021 influenza virus vaccine, unspecified formulation DO Arnie Linda Work Phone: [facility] 07-15-2021 COVID-19 mRNA, Comirnaty (Pfizer) DO Arnie Linda Work Phone: [facility] 12-03-2020 COVID-19 mRNA, Comirnaty (Pfizer) DO Arnie Linda Work Phone: [facility] 11-12-2020 COVID-19 mRNA, Comirnaty (Pfizer) DO Arnie Linda Work Phone: [facility] 06-30-2020 influenza virus vaccine, split virus (incl. purified surface antigen) Arnie Linda Other [facility] Other 06-30-2020 influenza virus vaccine, unspecified formulation DO [employer] Work Phone: [facility] 07-19-2019 influenza virus vaccine, split virus (incl. purified surface antigen) Arnie Linda Other [facility] [employer] Other 07-19-2019 influenza virus vaccine, unspecified formulation DO [employer] Work Phone: [facility] 07-17-2018 influenza virus vaccine, split virus (incl. purified surface antigen) Arnie Linda Other [facility] [employer] Other 07-17-2018 influenza virus vaccine, unspecified formulation DO [employer] Work Phone: [facility] 12-25-2017 diphtheria, tetanus toxoids and acellular pertussis vaccine, unspecified formulation Arnie Linda Other [facility] 07-24-2017 influenza virus vaccine, split virus (incl. purified surface antigen) Arnie Linda Other [facility] [employer] Other 07-24-2017 influenza virus vaccine, unspecified formulation DO [employer] Work Phone: [facility] 07-12-2016 influenza virus vaccine, split virus (incl. purified surface antigen) Arnie Linda Other [facility] [employer] Other 07-12-2016 influenza virus vaccine, unspecified formulation DO [employer] Work Phone: [facility] 05-26-2016 pneumococcal Conjuga te, unspecified formulation; Translations: [Need for prophylactic vaccination against Streptococcus pneumoniae (pneumococcus)] Arnie Linda Other [facility] [employer] Other 05-26-2016 pneumococcal conjuga te vaccine, 13 valent Arnie Linda Other [facility] 07-08-2015 influenza virus vaccine, split virus (incl. purified surface antigen) Arnie Linda Other [facility] [employer] Other 07-08-2015 influenza virus vaccine, unspecified formulation DO Arnie Linda Work Phone: [facility] 08-02-2013 tetanus and diphther ia toxoids, adsorbed, preservative free, for adult use (5 Lf of tetanus toxoid and 2 Lf of diphtheria toxoid) Arnie Linda Other [facility] 08-02-2013 pneumococcal polysaccharide vaccine, 23 valent Arnei Linda Other [facility] 07-16-2013 pneumococcal conjuga te vaccine, 13 valent Randall Deleon DO Work Phone: [facility] 06-27-2012 tetanus and diphther ia toxoids, adsorbed, preservative free, for adult use (5 Lf of tetanus toxoid and 2 Lf of diphtheria toxoid) Arnie Linda Other [facility] Payers Date Payer Category Payer Private Health [facility] [id number] 2022 Unknown AAR AAR [id number] 2022-Present [address] [place] [address] [id number] 2021 Managed Care Other (unspecified) [facility] [id number] 2007 Medicare [id number] 1959 Medicare [id number] 1959 Self-pay [id number] 1959 Unknown [id number] 1942 Unknown [id number] 2.16.840.1.403549.3.579.2 .647 1942 Unknown [id number] 2.16.840.1.464691.3.579.2 .593 1942 Unknown [id number] 2.16.840.1.451170.3.579.2 .593 1942 Unknown [id number] 2.16.840.1.618295.3.579.2 .593 1942 Unknown [id number] 2.16.840.1.913582.3.579.2 .593 1942 Unknown [id number] 2.16.840.1.558283.3.579.2 .593 1942 Unknown [id number] 2.16.840.1.669680.3.579.2 .593 1942 Unknown [id number] 2.16.840.1.191445.3.579.2 .593 1942 Unknown [id number] 2.16.840.1.226638.3.579.2 .593 1942 Unknown [id number] 2.16.840.1.998039.3.579.2 .593 1942 Unknown [id number] 2.16.840.1.057623.3.579.2 .593 1942 Unknown [id number] 2.16.840.1.092843.3.579.2 .593 1942 Unknown [id number] 2.16.840.1.210022.3.579.2 .593 1942 Unknown [id number] 2.16.840.1.653191.3.579.2 .593 1942 Unknown [id number] 2.16.840.1.017326.3.579.2 .593 1942 Unknown [id number] 2.16.840.1.842735.3.579.2 .593 1942 Unknown [id number] 2.16.840.1.364074.3.579.2 .593 1942 Unknown [id number] 2.16.840.1.695776.3.579.2 .593 1942 Unknown [id number] 2.16.840.1.092184.3.579.2 .593 1942 Unknown [id number] 2.16.840.1.259556.3.579.2 .593 1942 Unknown [id number] 2.16.840.1.178435.3.579.2 .593 1942 Unknown [id number] 2.16.840.1.907702.3.579.2 .593 1942 Unknown [id number] 2.16.840.1.039367.3.579.2 .1259 1942 Unknown [id number] 2.16.840.1.845537.3.579.2 .1259 1942 Unknown [id number] 2.16.840.1.604402.3.579.2 .1259 Unknown [id number] 2..840.1.648847.3.579.2 .593 Unknown [id number] 2..840.1.086622.3.579.2 .531 Unknown [id number] 2.16.840.1.788443.3.579.2 .531 Social History Date Type Detail Facility Start: 06-03-2022 End: 07-08-2024 Tobacco smoking status NHIS Ex-smoker (finding) [facility] Start: 1940 Sex Assigned At Male [facility] Start: 07-09-2024 End: 08-08-2024 Sex Assigned At [facility] [employer] Other History of tobacco use Current smoker [facility] Start: 06-01-2023 End: 07-09-2024 Tobacco use and exposure Smokeless tobacco non-user [facility] Start: 08-08-2024 Alcoholic beverage intake Ex-drinker (finding) [facility] Start: 07-09-2024 End: 08-08-2024 History of Social function [facility] Childcare Unknown [facility] Start: 1940 Sex assigned at Not on file N [facility] Start: 05-21-2015 Sex Male (finding) [facility] History of tobacco use Cigarette Smoker N [facility] Start: 07-08-2024 End: 07-09-2024 Alcoholic beverage intake Current drinker of alcohol (finding) [facility] How many standard drinks containing alcohol do you have on a typical day? 1 or 2 [facility] How often do you hav e [...] /State Clinical Notes 08-31-2021 to 09-10-2024 Marilin Clay, [facility] - 08/21/2024 1:00 PM Pietro Syed MD - 08/08/2024 10:30 AM EDTRandall Deleon DO - 07/09/2024 10:30 AM EDT Note Date & Type Note Facility 09-10-2024 Note [facility] 09-10-2024 Note [place] Electrophysiology Consult Note Reason for visit: Afib and dilated CMP. 09/10/24 Patient underwent WAITER/WAITRESS BUFFET-D upgrade procedure on 06/12/2023. Subsequent echocardiogram in [...] infrahisian disease. He was [facility]2020 due to what was discussed [...] Laterality Date CARD (more content not included)... [facility] 08-21-2024 History of Present illness Narrative [...] time if needed. documented in this encounter [facility] 08-12-2024 Note Pt is getting a colo noscopy in early August, is it alright to hold eliquis for two days prior to procedure? [facility] 08-08-2024 History of Present illness Narrative [...] Follows with Dr. Rodriguez Pulmonary medicine in [place] 60% Left renal artery stenosis noted in the past Decreased left ventricular function ejection fraction 30%. Iron Cutter Diana at [facility]. His most recall his echo on 09/11/2023 showed an EF of 25-30%. He is no longer requiring a life vest. He is status post upgrade of permanent pacemaker to defibrillator an additional lead placement at the [facility] June 07, 2023. Grade 1 left ventricular diastolic dysfunction. Mild tricuspid regurgitation Mild mitral regurgitation Atrial flutter status post SUSAN cardioversion at [facility] in July of 2019.He did undergo an ablation after a hospital stay in October 2019. He is on anticoagulation with reduced dose Eliquis 2.5 mg p.o. b.I.d. 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 Adenocarcinoma the colon status post colectomy with reanastomosis in [place] August 2021. Being followed by Oncology with [...] Interpersonal Safety: Unknown (12/07/2023) Re[facility] from [facility] Safety & Environment Fear of Current or Ex-Partner: Not on file Emotionally Abused: Not on file Physically Abused: Not on file Sexually Abused: Not on file Physically or Sexually Abused: Not on file Housing Instability: Not on file Family History: Family History Problem Relation Age of Onset Diabetes Mother Hypertension Mother Diabetes Father Hypertension Father Allergies & Medications Allergies: Allergies Allergen Reactions Wunaesb-Tti-Pbp Reductase Inhibitors Current Meds: Current Outpatient Medications [...] results found for: IRONSAT , FERRITIN , [id number] , FOLATE [facility]: No [...] of your patients! Please contact me at [phone] (Office) or [phone] (Answering service) with any questions. AVERY SYED MD [facility] This note was created with the assistance of a speech-recognition program. Although the intention is to generate a document that actually reflects the content of the visit, no guarantees can be provided that every mistake has been identified and corrected by editing. AVERY SYED MD,PhD FACP [facility] ANY QUESTIONS FEEL FREE TO CALL: 1. OFFICE [phone] 2. ANSWERING SERVICE: [phone] documented in this encounter [facility] 07-24-2024 Note Cardiovascular Medic [facility] SUBJECTIVE Chief Complaint Patient presents with Atrial Fibrillation Coronary Artery Disease Nas Ren is a 84 y.o. male here for follow-up. HPI PMHx: chronic systolic heart failure, persistent afib, CAD, hypertension, and dilated cardiomyopathy s/p ICD He was in the ER last week for c/o low BP and dizziness. He went to [facility] and they told him he was [...] OCCASIONAL Drug use: Never Allergies Allergen Reactions Hblejiw-Hpi-Mdd Reductase Inhibitors Tramadol ROS Cardiovascular: Positive for [...] 500 mg tablet, (more content not included)... [facility] 07-24-2024 Note Pt is here for a fol low up from [facility] ER. Pt denies sob, chest pain, and palpatations. Review of Systems Cardiovascular: Positive for leg swelling. Hematologic/Lymphatic: Bruises/bleeds easily. All other systems reviewed and are negative. [facility] 07-09-2024 History of Present illness Narrative Images from the original note were not included. Chief Complaint Patient presents with Sleep Apnea Subjective Nas Ren, 84 y.o., male HPI He feels that he is sleeping well and he feels good when he gets up in the am. He states that his tells him his mask leaks but he does not notice it. He does get up to go to the bathroom at night. He states that his tells him he has apnea events. She also tells him that he snores. Pt states that he feels like he is getting enough air. He has a pacemaker and defibrillator and continues on Eliquis. No other issues. He has not had the defib discharge. He did not get a CPAP pillow. He has overall been doing well. He needs order for new supplies. Past Medical History: Diagnosis Date Sleep apnea Past Surgical History: Procedure Laterality Date CT GUIDED IMAGING FOR ABSCESS DRAIN 05/27/2021 CT GUIDED IMAGING FOR ABSCESS DRAIN No family history on file. Social History Tobacco Use Smoking status: Former Types: Cigarettes Smokeless tobacco: Never Substance Use Topics Alcohol use: Yes Comment: caffeine: none Allergies: Patient has no known allergies. General: No fever or chills HEENT: No nasal congestion or runny nose Pulmonary: No shortness of breath or cough Cardiovascular: No chest pain or palpitations GI: No nausea or vomiting : No dysuria or hematuria Musculoskeletal: No new aches or pains or muscle weakness Infectious: no recurrent fevers or infections Dermatologic: No rashes or skin lesions Neurologic: No new headaches or dizziness Vitals: 07/09/24 1033 BP: 136/74 Pulse: 70 SpO2: 93% There is no height or weight on file to calculate BMI. Neurologic exam: General: Normal body habitus, cooperative, pleasant Mental status: Awake, alert to person, place and time. Recent and remote memory are intact. Attention and concentration are normal. Fund of knowledge is appropriate for level of education. HEENT: NC/AT Cranial nerves: CN II: Visual howard full to confrontation. No loss of vision CN III, IV, : pupils equal round and reactive to light. Extraocular movements intact. No ptosis present. CN V: Facial sensation is normal. CN VII: Full and symmetric facial movement. CN VIII: Hearing is normal CN IX and X: Palate elevates symmetrically. CN XI: Shoulder shrug is normal bilaterally. CN XII: Tongue is midline without atrophy or fasciculation. Speech: Clear and fluent no aphasia or dysarthria Pronator drift: Negative bilateral upper extremity Coordination: Intact, no signs of dysmetria Good finger to nose and rapid alternating movements Sensory: Sensation is intact to light, temperature and vibratory touch throughout four extremities. Motor: LUE 5/5 RUE 5/5 LLE 5/5 RLE 5/5 Tone: Physiologic, no tremor, bradykinesia or rigidity DTR: Bilateral Biceps 2/4 Bilateral BR 2/4 Bilateral Patellar 2/4 No spasticity Gait: Normal to casual gait Romberg's Negative Review and summary of old records: Assessment/Plan Diagnoses and all orders for this visit: MOLINA (obstructive sleep apnea) - CPAP ORDERS Lifetime Hypersomnia Primary insomnia Snoring Hypoxia 1. MOLINA (obstructive sleep apnea) - G47.33 (Primary) 2. Primary insomnia - F51.01 3. Hypersomnia - G47.10 4. Hypoxia - R09.02 5. Snoring - R06.83 84 year old male with severe obstructive with hypoxia leading to daytime hypersomnia and snoring. This is controlled with the use of the CPAP machine. He is compliant with it he is using it 97 percent of the time was 93 percent of the time greater than 4 hours average nightly use is 6 hours and 23 minutes and residual AHI of 3.9. He will sleep for a little while in the morning without mask on and why full-time he snores and has apnea events during that timeframe. He should really have the mask on all the time. He does prefer the mass in which the hose comes off the top of the head however he has a defibrillator/ pacemaker so he can not have the mask that have a magnet. We will have the DME check into any mask without magnets that the hose comes off the top of the head. He did not get a CPAP pillow and he would benefit from getting the CPAP pillow to help him sleep on his sides more. He has an occasionally but nothing overly problematic. He is on the AutoBiPap between 12 and 20 cm of water with a pressure support of 4. He does have hypoxia but the use of the CPAP machine controls this at night. He has not been having any further insomnia . . Plan He is compliant and it was reviewed as above We will check and see if there is any mask that of the hose comes off the head that does not have magnets Get a CPAP pillow Continue with the current pressures The patient was councelled on the risks of stroke, MN, and sudden with MOLINA, along with the need for compliance with CPAP/BiPAP treatment. The patient was counseled on proper sleep hygiene and adequate hours of sleep. This was discussed with the patient, all questions were answered and they agreed with the treatment plan. The patient is to call with any worsening of the condition or new symptoms. The diagnosis was all discussed with the patient. All questions were answered and they agreed with the treatment plan. Patient will call if there are any new issues or questions. Pt has been fully educated on their diagnosis, treatment options, follow up plan, and return instructions Return to clinic: 1 year documented in this encounter [facility] 03-29-2024 Note [place] Cardiology - [facility] Subjective Nas Ren is a 83 y.o. year old male patient being seen for 6 mo follow up chronic systolic heart failure, persistent afib, CAD, hypertension, and dilated cardiomyopathy s/p ICD. His device was interrogated last month, and he had lipid profile in December 2023. His credit rating inspector switched him from Bumex to Lasix due to insurance coverage. He feels good, as he denies chest pain, SOB, palpitations, lightheadedness/syncope, and bleeding on Eliquis. Patient Active Problem List Diagnosis Stage 3 chronic kidney disease ([facility]/HCC) Bacteremia Chronic systolic heart failure ([facility]) Dyslipidemia Edema of lower extremity Hyperlipidemia Hypertensive disorder Left ventricular systolic dysfunction Osteomyelitis of vertebra ([facility] Paroxysmal atrial flutter ([facility]) Proteinuria Type 2 diabetes mellitus ([facility] COPD (chronic obstructive pulmonary disease) ([facility]) Dilated cardiomyopathy ([facility]) Statin intolerance Stage 4 chronic kidney disease ([facility]) Chronic bronchitis, simple ([facility]) Chronic venous insufficiency Constipation Hyperlipidemia type II Hypothyroidism due to medication Impaired mobility and activities of daily living Iron deficiency anemia Colon cancer ([facility]) Mucopurulent chronic bronchitis ([facility] Obstructive sleep apnea Pacemaker A-fib ([facility]) Psoas abscess, right ([facility]) Pulmonary hypertension ([facility]) Thyrotoxicosis Type 2 diabetes mellitus with hyperglycemia ([facility]) Family History Problem Relation Name Age of [...] Judgment: Judgment normal. Allergies Allergies Allergen Reactions Ethzeyr-Gjb-Jfo Reductase Inhibitors Tramadol Medications Current Outpatient Medicat (more content not included)... [facility] 12-18-2023 Evaluation note Encounter Date Diagnosis Assessment Notes Dec, Thyrotoxicosis (ICD-10 - E05.90) Dec, Hypothyroidism due to medication (ICD-10 - E03.2) [facility] Other 11-12-2023 Evaluation note* Encounter Date Diagnosis Assessment Notes Treatment Notes Treatment Clinical Notes Aug, Hyperuricemia (ICD-1 0 - E79.0) [facility] Other 11-07-2023 Evaluation note* Encounter Date Diagnosis [...] are maintaining regular scheduled appts with their waiter/waitress bar. No bleeding complications Aug, Mucopurulent chronic bronchitis [...] use, the patient reduces the risk for MN, CVA, HTN, cardiac dysrhythmias and sudden cardiac [...] the risk for cerebrovascular and cardiovascular disease. [facility] Other 09-07-2023 Evaluation note* Encounter Date Diagnosis Assessment Notes Treatment Notes Treatment Clinical Notes Jun, Hypothyroidism due t o medication (ICD-10 - E03.2) [facility] Other 07-06-2023 Evaluation note* Encounter Date Diagnosis [...] use, the patient reduces the risk for MN, CVA, HTN, cardiac dysrhythmias and sudden cardiac [...] are maintaining regular scheduled appts with their waiter/waitress bar. No bleeding compliations Initiated on Eliquis valuescope Other 05-30-2023 Evaluation note* Encounter Date Diagnosis Assessment Notes Treatment Notes Treatment Clinical Notes February, Hypothyroidism due t o medication (ICD-10 - E03.2) valuescope Other 05-19-2023 Progress note Author Leigha Nelson [facility] March 03, 2023 2:31pm Note Date/Time March 03, 2023 2:21p m [facility] at [address] [address] Hem/Onc Follow Up Note - OP Signed Patient: Nas Ren MR#: [id number] : 1940 Acct:[id number] Age/Sex: 82 / M Type: REG RCR Copies to: MD Arnie Lui,DO Chivo Keller, II, DO~ Date of Service: 03/03/2023 Time [...] for coordination of care (as documented) and zbxw-iw-ttxp counseling of patient and/or family. [facility] - Medical History Medical History: Medical [...] Calcium 8.8, Iron 56, TIBC 281, Iron Arxqpikgcp07.9 L, Transferrin 201 L, Ferritin 236.7, Total [...] % (Auto) 68.3, Lymph % (Auto) 17.9, Highlands % (Auto) 9.6, Eos % (Auto) 3.6, Baso % (Auto) 0.6, Nucleat RBC Rel Count 0.3, Neut # (Auto) 6.6, Lymph # (Auto) 1.7, Highlands # (Auto) 0.9 H, Eos # (Auto) 0.3, Baso # (Auto) 0.1 - Home Medications and Allergies Allergies/Adverse Reactions: Allergies Gcfrcbu-LEE-PiR Reductase Inhibitor [Gifbvwc-Slg-Wnv Reductase Inhibitor] Allergy (Verified 03/03/23 13:45) Muscle [...] by EDWARD Nelson> 03/03/23 1431 [facility] Work Phone: 1(236) 879-410705-02-2023 Evaluation note* Encounter Date Diagnosis Assessment Notes Treatment Notes Treatment Clinical Notes February, Thyrotoxicosis (ICD-10 - E05.90) valuescope Other 03-29-2023 Evaluation note* Encounter Date Diagnosis [...] cardiomyopathy (ICD-10 - I42.0) Continue healthy diet. valuescope Other 03-02-2023 Evaluation note* Encounter Date Diagnosis [...] use, the patient reduces the risk for MN, CVA, HTN, cardiac dysrhythmias and sudden cardiac [...] Z12.5) Dec, Cardiac pacemaker (ICD-10 - Z95.0) valuescope Other 01-30-2023 Evaluation note* Encounter Date Diagnosis Assessment Notes Treatment Notes Treatment Clinical Notes Oct, Other thyrotoxicosis without thyrotoxic crisis or storm (ICD-10 - E05.80) valuescope Other 11-18-2022 Progress note Author Chivo Keller [facility] September 02, 2022 2:38pm Note Date/Time September 02, 2022 2:33pm [facility] at [address] [address] Hem/Onc Follow Up Note - OP Signed Patient: Nas Ren MR#: [id number] : 1940 Acct:[id number] Age/Sex: 82 / M Type: REG RCR [...] for coordination of care (as documented) and uwdn-zt-aown counseling of patient and/or family. [facility] - Medical History Medical History: Medical History (Last Reviewed 07/21/22 @ 08:16 by Bev Mustafa, CAROL) A-fib hx ablation Anemia Arthritis CHF (congestive [...] % (Auto) 68.3, Lymph % (Auto) 18.5, Highlands % (Auto) 8.4, Eos % (Auto) 4.3, Baso % (Auto) 0.5, Neut # (Auto) 4.6, Lymph # (Auto) 1.2, Highlands # (Auto) 0.6, Eos # (Auto) 0.3, Baso # (Auto) 0.0, Nucleated RBC % (auto) 0.1 - Home Medications and Allergies Allergies/Adverse Reactions: Allergies Vxnyvbj-MFQ-JpT Reductase Inhibitor [Tnjgzoo-Fdy-Zlh Reductase Inhibitor] Allergy (Verified 09/02/22 14:10) Muscle [...] Keller II, DO> 09/02/22 1438 [facility] Work Phone: 1([phone] 152-851210-06-2022 [facility] Progress note Author Leigha Nelson [facility] June 03, 2022 10:35am Note Date/Time June 03, 2022 10 :10am [facility] [address] Hem/Onc Follow Up Note - OP Signed Patient: Nas Ren MR#: [id number] : 1940 Acct:[id number] Age/Sex: 82 / M Type: REG RCR [...] for coordination of care (as documented) and qvsc-ow-jwkk counseling of patient and/or family. [facility] - Medical History Medical History: Medical [...] % (Auto) 69.9, Lymph % (Auto) 17.2, Highlands % (Auto) 8.0, Eos % (Auto) 4.1, Baso % (Auto) 0.8, Neut # (Auto) 6.2, Lymph # (Auto) 1.5, Highlands # (Auto) 0.7, Eos # (Auto) 0.4, Baso # (Auto) 0.1, Nucleated RBC % (auto) 0.0 - Home Medications and Allergies Allergies/Adverse Reactions: Allergies Euviwbp-TUO-WhW Reductase Inhibitor [Uazjsvy-Gvb-Wpr Reductase Inhibitor] Allergy (Verified 06/03/22 09:55) Muscle [...] by EDWARD Nelson> 06/03/22 1035 [facility] Work Phone: 1(473) 276-150106-18-2022 NoteMR#: [id number] [facility] Pt. Name: Nas Ren Admitted: 03/30/2022 Discharged: 04/02/2022 Date of : 1940 Physician: Gilmer Salazar MD DISCHARGE SUMMARY CONSULTING SERVICES: 1. Nephrology Service. 2. Endocrinology service. 3. Cardiology service. PRINCIPAL DIAGNOSES: 1. Nwybv-nq-mkytpnj heart failure, reduced ejection fraction of 35%. 2. Acute kidney injury on chronic kidney disease, stage 4, resolved. 3. Dyspnea, on exertion. 4. Essential hypertension. 5. History of coronary artery disease. 6. Iodine-induced hyperthyroidism, uncontrolled. 7. Ygt-ldkptss-tddggmkxj diabetes mellitus, diet controlled, A1c 6.4. 8. [...] is a 81-year-old male who presented to [facility] with chief complaint of dyspnea on exertion. [...] overload occurs, he is to call his waiter/waitress bar and/or PCP. The patient also require repeat [...] Adler PA-C Date Trans: 04/02/2022 02:36 P/hans [id number] cc: Arnie Linda D.O. [address] [place] [phone] [facility]05-21-2022 NotePROCEDURE: XR CHEST 1 V REASON [...] Electronically authenticated by: NICK OLMEDO Date: 2022-03-05 21:29[facility]05-15-2022 Progress note Author Chivo Keller [facility] February 27, 2022 12:52pm Note Date/Time February 25, 2022 12:11 pm [facility] at [address] [address] Hem/Onc Follow Up Note - OP Signed Patient: Nas Ren MR#: [id number] : 1940 Acct:[id number] Age/Sex: 81 / M Type: REG RCR Copies to: MD Arnie Lui,SUSI Date of Service: 02/25/2022 Time of Service: [...] Psoas abscesses drained by interventional radiology on 8/12. In late June he completed 6 weeks [...] for coordination of care (as documented) and hidv-jd-jpdo counseling of patient and/or family. [facility] - Medical History Medical History: Medical History (Last Reviewed 08/31/21 @ 08:58 by uQin Bolden) A-fib hx ablation Anemia Arthritis CHF [...] % (Auto) 65.1, Lymph % (Auto) 19.2, Highlands % (Auto) 13.3, Eos % (Auto) 1.8, Baso % (Auto) 0.6, Neut # (Auto) 4.2, Lymph # (Auto) 1.2, Highlands # (Auto) 0.9H, Eos # (Auto) 0.1, [...] Home Medications and Allergies Allergies/Adverse Reactions: Allergies Oorzvkc-HVQ-EbW Reductase Inhibitor [Bnhflca-Tyu-Nto Reductase Inhibitor] Allergy (Verified 02/25/22 11:39) Muscle [...] Keller II, DO> 02/27/22 1252 [facility] Work Phone: [phone] Consult note Author Nikunj Shultz [facility] August 31, 2021 9:50am Note Date/Time August 31, 2021 9:33am [facility] [place] [address] Hem/Onc Consult Note - OP Signed Patient: Nas Ren MR#: [id number] : 1940 Acct:[id number] Age/Sex: 81 / M Type: REG RCR [...] 2021. He has recovered well from surgery. [facility] - Medical History Medical History: Medical [...] Type: None Home Medications & Allergies Allergies Knyesam-IUN-TdK Reductase Inhibitor [Asuwyej-Hhn-Iji Reductase Inhibitor] Allergy (Verified 08/31/21 08:57) Muscle [...] or Bravo syndrome. I will discuss with [employer] and refer the patient for genetic testing. - Time with Patient Coordination of Care & Counseling Time: Greater than 50% of time spent with patient was for coordination of care (as documented) and wihd-oz-epya counseling of patient and/or family. Dictated By: Nikunj Shultz MD DD/ Signed By: <Electronically signed by MD Nikunj Shultz> 08/31/21 0912 [facility] Work Phone: Evaluation note* Diagnosis Onset Date Resolution Status Colon cancer acute [facility] Work Phone: Evaluation noteNo [employer] Other Evaluation note* Diagnosis Onset Date Resolution [...] (prostate specific antigen) noneactive Colon cancer acute [facility] Work Phone: Evaluation note* Diagnosis Onset [...] Type 2 diabetes mellitus with hyperglycemia acute [facility] Work Phone: Evaluation note* Diagnosis Stage 4 chronic kidney disease (CMS-HCC)- Primary [facility] Diagnosis Bilateral impacted cerumen- Primary Impacted cerumen [facility] Diagnosis MOLINA (obstructive sleep apnea)- Primary Obstructive sleep apnea (adult) (pediatric) Hypersomnia Hypersomnia, unspecified Primary insomnia Persistent disorder of initiating or maintaining sleep Snoring Other dyspnea and respiratory abnormality Hypoxia Hypoxemia documented in this encounter [facility] and [facility] note Author Ramesh Rascon [facility] July 21, 2022 9:27am Note Date/Time July 21, 2022 9: 27am [facility] [address] [place] [address] Gastroenterology H&P Signed Patient: Nas Ren MR#: [id number] : 1940 Acct:[id number] Age/Sex: 82 / M Adm Date: 2 Loc: Room: Type: [facility] Attending Dr: Ramesh Rascon MD Copies [...] by Ramesh Rascon MD> 07/21/22926 [facility] Work Phone: History general Narrative - [...] HEART CATH 04/2016 Hospitalization History See above valuescope Other Hisgvev general Narrative - Reported* Type Description Date [...] in year 07/2022 Hospitalization History See above valuescope Other Hisroqg general Narrative - Reported* Type Description Date [...] History 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 - Office number [phone].[facility] Work Phone: InstructionsNot on filedocumented in this encounter [facility] Author Leigha Nelson [facility] June 03, 2022 10:35am Note Date/Time June 03, 2022 10 :10am [facility] [place] [address] Hem/Onc Follow Up Note - OP Signed Patient: Nas Ren MR#: [id number] : 1940 Acct:[id number] Age/Sex: 82 / M Type: REG RCR [...] for coordination of care (as documented) and gzdc-zk-pupf counseling of patient and/or family. [facility] - Medical History Medical History: Medical [...] % (Auto) 69.9, Lymph % (Auto) 17.2, Highlands % (Auto) 8.0, Eos % (Auto) 4.1, Baso % (Auto) 0.8, Neut # (Auto) 6.2, Lymph # (Auto) 1.5, Highlands # (Auto) 0.7, Eos # (Auto) 0.4, Baso # (Auto) 0.1, Nucleated RBC % (auto) 0.0 - Home Medications and Allergies Allergies/Adverse Reactions: Allergies Dgamoot-JAJ-FoF Reductase Inhibitor [Xvocrmt-Lsn-Hvc Reductase Inhibitor] Allergy (Verified 06/03/22 09:55) Muscle [...] by EDWARD Nelson> 06/03/22 1035 [facility] Work Phone: Progress note Author Chivo Keller [facility] September 02, 2022 2:38pm Note Date/Time September 02, 2022 2:33pm [facility] [place] [address] Hem/Onc Follow Up Note - OP Signed Patient: Nas Ren MR#: [id number] : 1940 Acct:[id number] Age/Sex: 82 / M Type: REG RCR [...] for coordination of care (as documented) and apbu-yo-foyv counseling of patient and/or family. [facility] - Medical History Medical History: Medical [...] % (Auto) 68.3, Lymph % (Auto) 18.5, Highlands % (Auto) 8.4, Eos % (Auto) 4.3, Baso % (Auto) 0.5, Neut # (Auto) 4.6, Lymph # (Auto) 1.2, Highlands # (Auto) 0.6, Eos # (Auto) 0.3, Baso # (Auto) 0.0, Nucleated RBC % (auto) 0.1 - Home Medications and Allergies Allergies/Adverse Reactions: Allergies Xcyozne-HMS-ChQ Reductase Inhibitor [Edkfxjw-Rqo-Qye Reductase Inhibitor] Allergy (Verified 09/02/22 14:10) Muscle [...] Dictated By: Chivo Keller II, DO DD/ 143 Signed By: <Electronically signed by Chivo Keller II, DO> 09/02/22 1438 [facility] Work Phone: Progress note Author Chivo Keller [facility] September 01, 2023 2:14pm Note Date/Time September 01, 2023 2:09pm [facility] at [address] [address] Hem/Onc Follow Up Note - OP Signed Patient: Nas Ren MR#: [id number] : 1940 Acct:[id number] Age/Sex: 83 / M Type: REG RCR Copies to: MD Arnie Lui,DO~ Date of Service: 09/01/2023 Time of Service: [...] studies ok 09/01/23 ct c/a/p from 08/30/23 [facility] no evidence of disease. Repeat colonoscopy is [...] for coordination of care (as documented) and qrsw-qd-yfvm counseling of patient and/or family. [facility] - Medical History Medical History: Medical [...] Calcium 9.7, Iron 84, TIBC 290, Iron Rcmjsovmjb94.0, Transferrin 207, Ferritin 239.3, Total Bilirubin 0.8, AST 23, ALT 20, Alkaline Phosphatase 114 H, Total Protein 6.9, Albumin 4.4, Globulin 2.5, Albumin/Globulin Ratio 1.8 08/30/23 09:32: Corrected WBC 7.0, Uncorrected WBC Count 7.0, RBC 3.96, Hgb 12.3L, Hct 36.8 L, MCV 92.8, MCH 30.9, MCHC 33.3, RDW 14.8, Plt Count 206, MPV 7.6, Neut % (Auto) 65.9, Lymph % (Auto) 21.9, Highlands % (Auto) 7.9, Eos % (Auto) 3.8, Baso % (Auto) 0.5, Nucleat RBC Rel Count 0.1, Neut # (Auto) 4.6, Lymph # (Auto) 1.5, Highlands # (Auto) 0.5, Eos # (Auto) 0.3, Baso # (Auto) 0.0 - Home Medications and Allergies Allergies/Adverse Reactions: Allergies Ktegbks-OFD-RhV Reductase Inhibitor [Vblegzf-Iiw-Pkm Reductase Inhibitor] Allergy (Verified 03/03/23 13:45) Muscle [...] by Chivo Keller II, DO> 09/01/23 1414 [facility] Work Phone: Progress note Author Chivo Keller [facility] March 01, 2024 11:39am Note Date/Time March 01, 2024 11:18 am [facility] [place] [address] Cancer Center Note Signed Patient: Nas Ren MR#: [id number] : 1940 Acct:[id number] Age/Sex: 83 / M Type: REG AMB [...] Allergy (Unknown, Verified 12/18/23 10:02) Unknown Reaction Xvpbdau-TII-RsO Reductase Inhibitor [Wtasbkc-Yti-Lph Reductase Inhibitor] Allergy (Unknown, Verified 12/18/23 10:02) [...] PO DAILY ezetimibe 10 mg PO DAILY cdckauaselc-ouwfvvfug-yjschpmb 200-62.5-25 mcg (Trelegy Ellipta) 1 inh inhalation [...] No concerns voiced at time of intake. [facility] Medical History Medical History (Updated 01/30/24 [...] by Chivo Keller II, DO> 03/01/24 1139 [facility] Work Phone: Summary Purpose Family History [...] section and content) DATE CREATED AUTHOR 07/09/2021 [facility] DATE CREATED AUTHOR AUTHOR'S ORGANIZ ATION 06/10/2022 [facility] DATE CREATED AUTHOR AUTHOR'S ORGANIZ ATION 03/01/2023 [facility] pital DATE CREATED AUTHOR AUTHOR'S ORGANIZ ATION 08/23/2024 [facility] EPIC DATE CREATED AUTHOR AUTHOR'S ORGANIZ ATION 08/24/2024 [facility] DATE CREATED AUTHOR AUTHOR'S ORGANIZ ATION 10/06/2024 [facility] Care Teams (unrecognized sec tion and [...] Active Sta rt: March 01, 2024 Chivo J Adamowicz II, DO Attending Provider Active Start: March [...] Linda , DO Primary Care Provider Active JOSUE CalvinC Attending Provider Activ e Team Status: Inactive Member Role Status Dates Arnie Linda , DO Primary Care Provider Active Ramesh Rascon MD Attending Provider Active Videotape Recording Engineer Relationship Specialty Start Date End Date Arnie Linda DO PCP - General Internal Medicine 11/11/21 Videotape Recording Engineer Relationship Specialty Start Date End Date Arnie Linda MD [address] [place] [address] PCP - General Internal Medicine 08/24/23 Videotape Recording Engineer Relationship Specialty Start Date End Date Arnie Linda MD [address] [place] [address] PCP - General Internal Medicine 08/24/23 Videotape Recording Engineer Relationship Specialty Start Date End Date Arnie Linda MD [address] [place] [address] PCP - General Internal Medicine [...] FOR VISIT (unrecogniz ed section and content) Reason Comments Sleep Apnea Thyroid resultsRepeat lab workLab Results4 month Follow uprefillCOVID PositiveMEDICARE WELLNESSlab work [...] BE BASED ON THE PRIMARY CLINICAL RECORDS. [email or web address] provides no warranty or guarantee of the accuracy or completeness of information in this document.
[2024-10-11 10:47] LABS: Anion Gap 11.7; BUN Creatinine Ratio 22.5; Calcium 8.6 mg/dL (8.5-10.1); Chloride 103 mmol/L (98-107); Estimated GFR (African America 24 (>=60 mL/min/1.73m^2); Estimated GFR (Non-African Ame 20 (>=60 mL/min/1.73m^2); Glucose 124 mg/dL (74-106); Magnesium 2.4 mg/dL (1.8-2.4); Potassium 3.7 mmol/L (3.5-5.1); Sodium 143 mmol/L (136-145)
== END 2024-10-11 10:05 | disposition home or self-care (01) ==
LOC: LAB 10:06
PROVIDERS: PCP Internal Medicine; Visit Provider Internal Medicine Cardiovascular Disease
DX: I48.91 Unspecified atrial fibrillation (principal)
CPT/HCPCS: 36415; 80048; 83735

== ENCOUNTER 2024-11-07 10:27 | Outpatient (OUT) | payer MEDICARE, SELFPAY ==
--- OUTSIDE RECORDS SUMMARY | 2024-11-07 10:50 | XMS_ITS | CCD ---
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 Name Role Phone GILMER SALAZAR Attending Unavailable GILMER SALAZAR Admitting Unavailable ARNIE LINDA Referring Unavailable ARNIE LINDA Primary Care Unavailable DO Arnie Linda Primary Care Provider [phone] CHARLENE Kelly Attending Provider MD Kalia Sánchez Referring Provider [phone] DO Chivo Keller II Attending Provider MD Kalia Sánchez Referring Provider DO Chivo Keller II Attending Provider [phone] MD Ramesh Rascon Attending Provider DO Arnie Linda Primary Care Provider MD Ramesh Rascon Attending Provider MD Kalia Sánchez Referring Provider [phone] DO Chivo Keller II Attending Provider Arnie [...] MISC, DR VELASQUEZ Admitting Unavailable MISC, DR VELAQSUEZ Attending Unavailable BALL, DR SORENSON Primary Care [...] Klausicz II, DO Chivo Howell Attending Provider DO Arnie Linda Primary Care Provider [phone] MD Kalia Sánchez Referring Provider Klausicz II, DO Chivo Howell Attending Provider Arnie Linda DO Primary Care Provider Arnie Linda MD Primary Care Provider RANDALL DELEON Attending Unavailable MARILIN CLAY Attending Unavailable Ramesh Rascon Attending Unavailable Ramesh Rascon Admitting Unavailable Arnie Linda [facility] Unavailable Adamowicz II, Chivo Howell Attending Unavaila ble Adamowicz II, Chivo Howell Admitting Unavaila ble Kalia Sánchez Referring Unavailable Arnie Linda [facility] Care Unavailable MIKAYLA, MARIUSZ Referring Unavailable MIKAYLA, MARIUSZ Referring Unavailable MIKAYLA, MARIUSZ Referring Unavailable MIKAYLA, MARIUSZ Referring Unavailable MIKAYLA, MARIUSZ Referring Unavailable BASHIR, GREG Referring Unavailable BASHIR, GREG Referring Unavailable MIKAYLA, MARIUSZ Admitting Unavailable MIKAYLA, MARIUSZ Attending Unavailable BASHIR, GREG Referring Unavailable MIKAYLA, MARIUSZ Attending Unavailable MIKAYLA, MARIUSZ Referring Unavailable MIKAYLA, MARIUSZ Referring Unavailable MIKAYLA, MARIUSZ Referring Unavailable MIKAYLA, MARIUSZ Referring Unavailable MIKAYLA, MARIUSZ Referring Unavailable MOUKARBEL, DAWN Attending Unavailable ENRRIQUE MCKEON Attending Unavailable MIKAYLA, MARIUSZ Referring Unavailable MIKAYLA, MARIUSZ Referring Unavailable MIKAYLA, MARIUSZ Referring Unavailable MIKAYLA, MARIUSZ Referring Unavailable MIKAYLA, MARIUSZ Referring Unavailable MIKAYLA, MARIUSZ Referring Unavailable MIKAYLA, MARIUSZ Referring Unavailable Allergies Allergy Classification Reported Allergen(s) Allergy Type Date of Onset Reaction(s) Facility (3 sources) black walnut pollen extract; Translations: [ROZZVXJ-IFY-LPG REDUCTASE INHIBITORS] Drug Allergy 05-16-20 18 [facility] Repository (11 sources) traMADol; Translations: [TRAMADOL] Drug Allergy 03-30-20 Itching [facility] Repository (9 sources) Itfcoyx-ZHY-HaF Reductase Inhibitor; Translations: [Bpyvtyg-WLM-NeZ Reductase Inhibitor] Allergy to substance 06-03-20 Muscle Pain [facility] (13 sources) Albuterol Drug Allergy Unknown [employer] Other (17 sources) ezetimibe Drug Allergy Unknown [employer] Other (13 sources) HMG-CoA reductase inhibitor Drug allergy Unknown [employer] Other (19 sources) Niacin Drug Allergy Unknown [employer] Other (19 sources) Simvastatin Drug Allergy 12-18-19 24 Unknown, Unknown Reaction [facility] (8 sources) Statins Depletion *DIETARY PRODUCTS/DIETARY MANAGE Propensity to adverse reactions Unknown [employer] Other (4 sources) Allergies Reconciled Propensity to adverse reactions Unknown [employer] Other (8 sources) Albuterol *ANTIASTHMATIC AND BRONCHODILATOR AGENTS Propensity to adverse reactions Comment:dedrick engle with this [employer] Other (4 sources) patient allergy list reviewed by nurse or physicia Propensity to adverse reactions 04-04-20 Comment:Done [employer] Other (4 sources) Niacin Drug Allergy 12-18-19 Unknown, Unknown Reaction [facility] (1 source) HMG-CoA reductase inhibitor Propensity to adverse reactions to drug 11-03-19 [facility] (1 source) Simvastatin Drug Allergy 08-22-20 [facility] Repository (1 source) traMADol Drug Allergy 08-22-20 [facility] Repository Medications Current Medications Medication [...] tablet (13 sources) Vitamin D Start: 12-15-19 24 take 5000 [IU] by mouth once daily [...] 03, 2023 12:00am December 15, 2023 2:47pm Oftuurfkchw-Rooxjgpoi-Guuqqt (Trelegy Ellipta) 200-62.5-25 MCG/ACT aerosol powder (5 sources) Fluticasone-Umec lidin-Vilant (Trelegy Ellipta) 200-62.5-25 MCG/ACT aerosol powder Inhale Active Tlolqzbmswo-Kzrlmnjbf-Oeelhq er (2 sources) Sta rt: 4 Vizkhgexfja-Avrchmkzz-Bvqrcb er (Trelegy Ellipta) 200-62.5-25 mcg blister with [...] 2023 2:46pm take 1 tablet by [place] in the morning, then take 1 tablet [...] 02, 2021 1:37pm take 2 tablets by mo [facility] every twenty-four hours in the morning [...] August 02, 2021 1:40pm polyethylene glycol 3350 56323 mg powder for oral solution (8 sources) [...] Coronary arteriosclerosis; Translations: [Atherosclerotic heart disease of [place] coronary artery without angina pectoris] Onset: 03-09-2022 [...] 12-28-2017 Episodic Other aftercare (1 source) 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 10/17/24 Pt here for DCCV. Device check reveals atrial flutter with V pacing, 09/10/24 Patient underwent INDUSTRIAL GAS FITTER-D upgrade procedure on 06/12/2023. Subsequent echocardiogram in [...] infrahisian disease. He was brought back [facility]12[facility]2020 due to what was discussed [...] Arrhythmia CHF (congestive heart failure) (CMS/HCC) Chronic k (more content not included)... Normal [facility] NURSNOTEon 10-17-2024 NURSNOTE RN educated pt and on discharge instructions. RN encouraged pt to voice any questions or concerns. Pt verbalizes no questions or concerns at this time. Pt was wheeled off unit with all belongings. Normal [facility] Orders Onlyon 10-10-2024 Orders Only [id number] Nas Ren 1940 M Date Provider Department Center 10/10/2024 CARINA OSMAN [facility] Family History Problem Relation Age of Onset Diabetes Mother Heart disease Father Glaucoma Brother Diabetes Maternal Grandmother Clotting disorder Other Family Status - Relation Status Age at Mother Father Brother Maternal Grandmother Other Normal [facility] 36on 09-20-2024 36 Regarding echo result from 09/19/2024: Per Dr. Degroot - EF has improved. Will repeat echo in 6 months. Order entered and faxed to [facility]. Patient and his informed. Normal [facility] Office Visiton 09-10-2024 Follow-up visit [id number] Nas Ren 1940 M Date Provider Department Center 09/10/2024 Shalini-MARIUSZ DEGROOT DARWIN [facility] Family History Problem Relation Age of Onset Diabetes Mother Heart disease Father Glaucoma Brother Diabetes Maternal Grandmother Clotting disorder Other Family Status - Relation Status Age at Mother Father Brother Maternal Grandmother Other Level of Service:36119 [place] OFFICE/OUTPATIENT ESTABLISHED LOW MDM 20 MIN Normal [facility] Glucose Poct Glucometerson 1 10-22-2023 Commemt1 Glu2: Cleaned Meter Normal [facility] Comment on above: Result Comment: PERF ORMED BY: [facility] [address] [place] [address] PATHOLOGIST ALODIZE MACHINE OPERATOR TRU UMANZOR M.D. Performed By: #### G CONI #### Point of Care testing , Glucose [Mass/Vol] 112 mg/dL Normal [facility] Comment on above: Result Comment: [facility] Glucose Reference Range is dependent on time and content of last meal. Glucose of more than 200 mg/dL in a nonstressed, ambulatory subject supports the diagnosis of Diabetes Mellitus. Performed By: #### G LULS #### Point of Care testing , Vijay 08-22-2024 L Specimen: [id number] Received: 08/22/24 Status: ДМИТРИЙ Hurd Num: [id number] Spec Type: Surgical Subm Dr: Ramesh Rascon MD Tissues: A Colon Biopsy (TRANSVERSEPOLYPS) B Colon Biopsy (DESCENDING POLYPS) C Colon Biopsy (SIGMOID POLYPS) Procedures: HE/6, Gross/Micro L4/3 Age/ Patient Sex Location Account Attending Physician Nas Ren 84/M [id number] Ramesh Rascon MD SPEC NUM: [id number] RECD: 08/22/24 STATUS: ДМИТРИЙ LINDQUISTAnnetta NUM: [id number] LLOYD: 08/22/24 DR: Ramesh Rascon MD ENTERED: 08/22/[address]: SPEC TYPE: Surgical DEPT: S ENTERED BY: [id number] RECV BY: [id number] ORDERED: HE/6, Gross/Micro L4/3 ORDERED: HE/6, Gross/Micro [...] submitted in a single cassette. (1, ns, [id number]) JG B received in formalin labeled descending polyps are 5 staley-parr, focally erythematous, friable, 0.2 to 0.5 cm polypoid fragments. The specimen is entirely submitted in a single cassette. (1, ns, [id number]) JG C. Received in formalin labeled sigmoid polyps are 4 staley-parr, focally erythematous, Specimen: [id number] Received: 08/22/24 Status: ДМИТРИЙ Hurd Num: [id number] Spec Type: Surgical Subm Dr: Ramesh Rascon MD Tissues: A Colon Biopsy (TRANSVERSEPOLYPS) B Colon Biopsy (DESCENDING POLYPS) C Colon Biopsy (SIGMOID POLYPS) Procedures: HE/6, Gross/Micro L4/3 Patient: Nas Ren [id number] (Continued) Specimen: [id number] Received: 08/22/24 (Continued) Gross Description (Continued) Signed (signature on file) Logan Ruiz MD 08/23/24 0926 Specimen: [id number] Received: 08/22/24 Status: ДМИТРИЙ Hurd Num: [id number] Spec Type: Surgical Subm Dr: Ramesh Rascon MD Tissues: A Colon Biopsy (TRANSVERSEPOLYPS) B Colon Biopsy (DESCENDING POLYPS) C Colon Biopsy (SIGMOID POLYPS) Procedures: HE/Mehdi, Gross/Micro L4/3 Patient: Nas Ren [id number] (Continued) Specimen: [id number] Received: 08/22/24 (Continued) Gross Description (Continued) friable, 0.2 to 0.4 cm polypoid fragments. The specimen is entirely submitted in a single cassette. (1, ns, [id number] C) CPT Codes 88 305 x 3 Specimen: [id number] Received: 08/22/24 Status: ДМИТРИЙ Lindquistannetta Num: [id number] Spec Type: Surgical Subm Dr: Ramesh Rascon MD Tissues: A Colon Biopsy (TRANSVERSEPOLYPS) B Colon Biopsy (DESCENDING POLYPS) C Colon Biopsy (SIGMOID POLYPS) Procedures: HE/Mehdi, Julieta/Srinivas L4/3 Patient: Nas Ren [id number] (Continued) Signed (signature on file) Logan Ruiz MD 08/23/24925 Normal [facility] 36on 08-12-2024 36 Okay to hold Eliquis 2 days prior to colonoscopy. Thanks Normal [facility] Office Visiton 07-24-2024 Follow-up visit [id number] Nas Ren 1940 M [facility] Provider Department Center 07/24/2024 ENRRIQUE TAVAREZ DARWIN Agustin [facility] Family History Problem Relation Age of Onset Diabetes Mother Heart disease Father Glaucoma Brother Diabetes Maternal Grandmother Clotting disorder Other Family Status - Relation Status Age at Mother Father Brother Maternal Grandmother Other Level of Service:17906 [place] OFFICE/OUTPATIENT ESTABLISHED MOD MDM 30 MIN Reason for Visit and Comments: Atrial Fibrillation [80] Coronary Artery Disease [187] Normal [facility] Office Visiton 03-29-2024 Follow-up visit [id number] Nas Ren 1940 M Date Provider Department Center 03/29/2024 DAWN YOUSIF DARWIN Shaikh Family History Problem Relation Age of Onset Diabetes Mother Heart disease Father Glaucoma Brother Diabetes Maternal Grandmother Clotting disorder Other Family Status - Relation Status Age at Mother Father Brother Maternal Grandmother Other Level of Service:04434 [place] OFFICE/OUTPATIENT ESTABLISHED LOW MDM 20 MIN Normal [facility] Alanine aminotransferase [En zymatic activity/volume] in Serum or PlasmaOrdered By: Chivo Keller on 02-22-2024 ALT [Catalytic activity/Vol] 15 U/L Normal 7-52 [facility] Comment on above: Performed By: #### V [id number], TONY, CMP, FE and TIBC, CBC #### [facility] [address] [place] [address] [place] #### SPE, KAPPA, LEXI SERUM #### [facility] , Albumin [Mass/volume] in Ser um or PlasmaOrdered By: Chivo Keller on 02-22-2024 Albumin [Mass/Vol] 3.9 g/dL Normal 2.9-4.4 [facility] Comment on above: Performed By: #### V [id number], TONY, CMP, FE and TIBC, CBC ####[facility] [place] [address] [place]#### SPE, KAPPA, LEXI SERUM ####[facility] , Albumin [Mass/volume] in Ser um or Plasma by Bromocresol green (BCG) dye binding methoOrdered By: Chivo Keller on 02-22-2024 Albumin BCG dye [Mass/Vol] 4.4 g/dL 3.5-5.7 [facility] Alkaline phosphatase [Enzyma tic activity/volume] in Serum or PlasmaOrdered By: Chivo Keller on 02-22-2024 ALP [Catalytic activity/Vol] 100 U/L Normal 34-104 [facility] Comment on above: Performed By: #### V [id number], TONY, CMP, FE and TIBC, CBC #### [place] [address] [place] #### SPE, KAPPA, LEXI SERUM #### [facility] , Aspartate aminotransferase [ Enzymatic activity/volume] in Serum or PlasmaOrdered By: Chivo Keller on 02-22-2024 AST [Catalytic activity/Vol] 18 U/L Normal 13-39 [facility] Comment on above: Performed By: #### V [id number], TONY, CMP, FE and TIBC, CBC #### [place] [address] [place] #### SPE, KAPPA, LEXI SERUM #### [facility] , Automated basophil %Ordered By: Chivo Keller on 02-22-2024 Basophils/100 WBC (Bld) 0.5 % Normal . [facility] Comment on above: Performed By: #### V [id number], TONY, CMP, FE and TIBC, CBC #### [place] [address] [place] #### SPE, KAPPA, LEXI SERUM #### [facility] , Automated basophil countOrde red By: Chivo Keller on 02-22-2024 Basophils (Bld) [#/Vol] 0.0 10*3/uL Normal 0.0-0.2 [facility] Comment on above: Result Comment: PERF ORMED BY: [address] [place] [address] PATHOLOGIST ALODIZE MACHINE OPERATOR TRU UMANZOR M.D. Performed By: #### V [id number], TONY, CMP, FE and TIBC, CBC #### [address] #### SPE, KAPPA, LEXI SERUM #### [facility] , Automated blood monocyte cou ntOrdered By: Chivo Keller on 02-22-2024 Monocytes (Bld) [#/Vol] 0.8 10*3/uL Normal 0.0-0.8 [facility] Comment on above: Performed By: #### V [id number], TONY, CMP, FE and TIBC, CBC #### [address] #### SPE, KAPPA, LEXI SERUM #### [facility] , Automated eosinophil %Ordere d By: Chivo Keller on 02-22-2024 Eosinophils/100 WBC (Bld) 3.8 % Normal . [facility] Comment on above: Performed By: #### V [id number], TONY, CMP, FE and TIBC, CBC #### [place] [address] [place] #### SPE, KAPPA, LEXI SERUM #### [facility] , Automated eosinophil countOr dered By: Chivo Keller on 02-22-2024 Eosinophils (Bld) [#/Vol] 0.3 10*3/uL Normal 0.0-0.45 [facility] Comment on above: Performed By: #### V [id number], TONY, CMP, FE and TIBC, CBC #### [place] [address] [place] #### SPE, KAPPA, LEXI SERUM #### [facility] , Automated monocyte %Ordered By: Chivo Keller on 02-22-2024 Monocytes/100 WBC (Bld) 10.0 % Normal . [facility] Comment on above: Performed By: #### V [id number], TONY, CMP, FE and TIBC, CBC #### [place] [address] [place] #### SPE, KAPPA, LEXI SERUM #### [facility] , Automated neutrophil %Ordere d By: Chivo Keller on 02-22-2024 Neutrophils/100 WBC (Bld) 66.6 % Normal . [facility] Comment on above: Performed By: #### V [id number], TONY, CMP, FE and TIBC, CBC #### [address] #### SPE, KAPPA, LEXI SERUM #### [facility] , Bilirubin.total [Mass/volume ] in Serum or PlasmaOrdered By: Chivo Keller on 02-22-2024 Bilirubin [Mass/Vol] 0.7 mg/dL Normal 0.3-1.0 [facility] Comment on above: Performed By: #### V [id number], TONY, CMP, FE and TIBC, CBC #### [place] [address] [place] #### SPE, KAPPA, LEXI SERUM #### [facility] , CT abdomen pelvis wo conon 0 02-22-2024 CT abdomen pelvis wo [facility] [place] [address] CT Scan Report Signed Patient: Nas Ren MR#: [id number] 24 : 1940 Acct:[id number] Age/Sex: 83 / M ADM Date: 02/22/24 Loc: XT Room: Type: REG RCR Attending Dr: Chivo Keller II DO Copies to: Chivo Keller II, DO Ordering Provider: Chivo Keller II, DO Date of Service: 02/22/24 CT/CT abdomen pelvis wo con: surveilance ([id number]) CT/CT chest wo con: surveilance CT chest [...] 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 CT/CT chest wo con IMPRESSION: Granulomatous changes are noted in the mediastinum, marlena, and lung parenchyma bilaterally. No evidence of pulmonary metastatic disease. There is a 12 mm nodule in the right adrenal gland which is unchanged. 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 No intra-abdominal metastatic disease. Impression dictated by: Michaela Bernard M.D.02/22/2024 2:03 PM Dictation Location: [place] [address] Transcribed By: [facility] 02/22/24 1403 Dictated By: Michaela Bernard II, MD 02/22/24 1351 Signed By: 02/22/24 1403 Normal [facility] Calcium [Mass/volume] in Ser um or PlasmaOrdered By: Chivo Keller on 02-22-2024 Calcium [Mass/Vol] 9.4 mg/dL Normal 8.6-10.3 [facility] Comment on above: Performed By: #### V [id number], TONY, CMP, FE and TIBC, CBC #### [facility] [address] [place] [address] [place] #### SPE, KAPPA, LEXI SERUM #### [facility] , Carbon dioxide, total [Moles /volume] in Serum or PlasmaOrdered By: Chivo Keller on 02-22-2024 CO2 [Moles/Vol] 33.2 mmol/L High 21.0-31.0 [facility] Comment on above: Performed By: #### V [id number], TONY, CMP, FE and TIBC, CBC #### [facility] [address] #### SPE, KAPPA, LEXI SERUM #### [facility] , Chloride [Moles/volume] in S alayna or PlasmaOrdered By: Chivo Keller on 02-22-2024 Chloride [Moles/Vol] 100 mmol/L Normal 98-107 [facility] Comment on above: Performed By: #### V [id number], TONY, CMP, FE and TIBC, CBC #### [place] [address] [place] #### SPE, KAPPA, LEXI SERUM #### [facility] , Complete Blood Count Auto Di ffon 02-22-2024 Mean Corpuscular HGB Conc 33.9 g/dL Normal 32.5-35.6 [facility] Comment on above: Performed By: #### V [id number], TONY, CMP, FE and TIBC, CBC #### [address] #### SPE, KAPPA, LEXI SERUM #### [facility] , NRBC% 0.0 /100{WBC} Normal 0-0.[address] [facility] Comment on above: Performed By: #### V [id number], TONY, CMP, FE and TIBC, CBC #### [address] #### SPE, KAPPA, LEXI SERUM #### [facility] , Comprehensive Metabolic Pane vijay 02-22-2024 Albumin [Mass/Vol] 4.4 g/dL Normal 3.5-5.7 [facility] Comment on above: Performed By: #### V [id number], TONY, CMP, FE and TIBC, CBC #### [facility] [address] [place] [address] [place] #### SPE, KAPPA, LEXI SERUM #### [facility] , Creatinine Clr Calc Pharmacy 29.06 Normal [facility] Comment on above: Performed By: #### V [id number], TONY, CMP, FE and TIBC, CBC #### [place] [address] [place] #### SPE, KAPPA, LEXI SERUM #### [facility] , GFR/1.73 sq M.predicted MDRD (S/P/Bld) [Vol rate/Area] 26.711 mL/min/{1.73_m2} Normal [facility] Comment on above: Performed By: #### V [id number], TONY, CMP, FE and TIBC, CBC #### [address] #### SPE, KAPPA, LEXI SERUM #### [facility] , Creatinine [Mass/volume] in Serum or PlasmaOrdered By: Chivo Keller on 02-22-2024 Creatinine [Mass/Vol] 2.38 mg/dL High 0.70-1.30 [facility] Comment on above: Performed By: #### V [id number], TONY, CMP, FE and TIBC, CBC #### [address] #### SPE, KAPPA, LEXI SERUM #### [facility] , Erythrocyte distribution wid th [Ratio] by Automated countOrdered By: Chivo Keller on 02-22-2024 Erythrocyte distribution width (RBC) [Ratio] 14.6 % Normal 12.0-14.8 [facility] Comment on above: Performed By: #### V [id number], TONY, CMP, FE and TIBC, CBC #### [place] [address] [place] #### SPE, KAPPA, LEXI SERUM #### [facility] , Erythrocytes [#/volume] in B lood by Automated countOrdered By: Chivo Keller on 02-22-2024 RBC (Bld) [#/Vol] 4.09 10*6/uL Normal 3.90-5.60 [facility] Comment on above: Performed By: #### V [id number], TONY, CMP, FE and TIBC, CBC #### [facility] [address] [place] [address] [place] #### SPE, KAPPA, LEXI SERUM #### [facility] , Ferritin [Mass/volume] in Se rum or PlasmaOrdered By: Chivo Keller on 02-22-2024 Ferritin [Mass/Vol] 236.8 ng/mL Normal 23.9-336.2 [facility] Comment on above: Performed By: #### V [id number], TONY, CMP, FE and TIBC, CBC #### [facility] [address] [place] [address] [place] #### SPE, KAPPA, LEXI SERUM #### [facility] , Folate [Mass/volume] in Seru m or PlasmaOrdered By: Chivo Keller on 02-22-2024 Folate [Mass/Vol] 36.0 ng/mL >5.9 [facility] Comment on above: Folate reference ran ge: >5.9 ng/mlThe WHO technical consultation on folate and vitamin w19hnwuptsbdyhm has determined that folate concentrations lessthan 4 ng/ml are considered deficient. Free K+L LT Chains, Qn, Son 02-22-2024 Free Waterflow Light Chains, S 56.1 mg/L High 3.3-19.4 [facility] Comment on above: Performed By: #### V [id number], TONY, CMP, FE and TIBC, CBC ####[facility] [place] [address] [place]#### SPE, KAPPA, LEXI SERUM ####[facility] , Free Lambda Light Chains, S 37.2 mg/L High 5.7-26.3 [facility] Comment on above: Performed By: #### V [id number], TONY, CMP, FE and TIBC, CBC ####[facility] [place] [address] [place]#### SPE, KAPPA, LEXI SERUM ####[facility] , Waterflow/Lambda Ratio, S 1.51 Normal 0.26-1.65 [facility] Comment on above: Result Comment: Perf ormed at: CB - [facility] [address] [id number] Strip Machine Tender: Nathan Munoz PhD, Phone: [phone] PERFORMED BY: [place] [address] PATHOLOGIST ALODIZE MACHINE OPERATOR TRU UMANZOR M.D. Performed By: #### V [id number], TONY, CMP, FE and TIBC, CBC ####[address]#### SPE, KAPPA, LEXI SERUM ####[facility] , Glucose [Mass/volume] in Ser um or PlasmaOrdered By: Chivo Keller on 02-22-2024 Glucose [Mass/Vol] 129 mg/dL High 70-100 [facility] Comment on above: ADA recommended refe rence rangeRandom Glucose Reference Range is dependent on time and content of last meal. Glucose of more than 200 mg/dL in a nonstressed, ambulatory subject supports the diagnosis of Diabetes Mellitus. Result Comment: [place] [facility] Glucose Reference Range is dependent on time and content of last meal. Glucose of more than 200 mg/dL in a nonstressed, ambulatory subject supports the diagnosis of Diabetes Mellitus. ADA recommended reference range Performed By: #### V [id number], TONY, CMP, FE and TIBC, CBC #### [facility] [address] [place] [address] [place] #### SPE, KAPPA, LEXI SERUM #### [facility] , Hematocrit [Volume Fraction] of Blood by Automated countOrdered By: Chivo Keller on 02-22-2024 Hematocrit (Bld) [Volume fraction] 38.1 % Low 38.8-50.0 [facility] Comment on above: Performed By: #### V [id number], TONY, CMP, FE and TIBC, CBC #### [address] #### SPE, KAPPA, LEXI SERUM #### [facility] , Hemoglobin [Mass/volume] in BloodOrdered By: Chivo Keller on 02-22-2024 Hemoglobin (Bld) [Mass/Vol] 12.9 g/dL Low 13.0-17.0 [facility] Comment on above: Performed By: #### V [id number], TONY, CMP, FE and TIBC, CBC #### [facility] [address] [place] [address] #### SPE, KAPPA, LEXI SERUM #### [facility] , IgA [Mass/volume] in Serum o r PlasmaOrdered By: Chivo Keller on 02-22-2024 IgA [Mass/Vol] 179 mg/dL 61-437 [facility] IgG [Mass/volume] in Serum o r PlasmaOrdered By: Chivo Keller on 02-22-2024 IgG [Mass/Vol] 987 mg/dL 603-1613 [facility] [facility] IgM [Mass/volume] in Serum o r PlasmaOrdered By: Chivo Keller on 02-22-2024 IgM [Mass/Vol] 143 mg/dL 15-143 [facility] Comment on above: Performed at: [place] [id number] Director: Nathan Munoz PhD, Phone: [phone] Immunofixation,Serumon 02-21 Immunofixation, Serum Normal . [facility] Comment on above: Result Comment: No m onoclonality detected. Performed By: #### V [id number], TONY, CMP, FE and TIBC, CBC #### [facility] [address] [place] [address] [place] #### SPE, KAPPA, LEXI SERUM #### [facility] , Immunoglobulin A, Serum 179 mg/dL Normal 61-437 [facility] Comment on above: Performed By: #### V [id number], TONY, CMP, FE and TIBC, CBC #### [place] [address] [place] #### SPE, KAPPA, LEXI SERUM #### [facility] , Immunoglobulin G 987 mg/dL Normal 603-1613 [facility] Comment on above: Performed By: #### V [id number], TONY, CMP, FE and TIBC, CBC #### [facility] [address] [place] [address] [place] #### SPE, KAPPA, LEXI SERUM #### [facility] , Immunoglobulin M, Serum 143 mg/dL Normal 15-143 [facility] Comment on above: Result Comment: Perf ormed at: [place] [facility] [place] [address] [place], [place] [id number] Strip Machine Tender: Nathan Munoz PhD, Phone: [phone] Performed By: #### V [id number], TONY, CMP, FE and TIBC, CBC #### [address] #### SPE, KAPPA, LEXI SERUM #### [facility] , Immunoglobulin light chains. kappa.free [Mass/volume] in SerumOrdered By: Chivo Keller on 02-22-2024 Immunoglobulin light chains.kappa.free (S) [Mass/Vol] 56.1 mg/L High 3.3-19.4 [facility] Immunoglobulin light chains. kappa.free/Immunoglobulin light chains.lambda.free [MassOrdered By: Chivo Keller on 02-22-2024 Immunoglobulin light chains.kappa.free/Immun oglobulin light chains.lambda.free (S) [Mass ratio] 1.51 0.26-1.65 [facility] Comment on above: Performed at: [employer] [facility] [place], [place] [id number] Director: Nathan Munoz PhD, Phone: [phone] Immunoglobulin light chains. lambda.free [Mass/volume] in Serum or PlasmaOrdered By: Chivo Keller on 02-22-2024 Immunoglobulin light chains.lambda.free [Mass/Vol] 37.2 mg/L High 5.7-26.3 [facility] Iron [Mass/volume] in Serum or PlasmaOrdered By: Chivo Keller on 02-22-2024 Iron [Mass/Vol] 85 ug/dL Normal 50-212 [facility] Comment on above: Performed By: #### V [id number], TONY, CMP, FE and TIBC, CBC #### [facility] [address] [place] [address] [place] #### SPE, KAPPA, LEXI SERUM #### [facility] , Iron and TIBC Profileon % Iron Saturation 30.2 % Normal 20-50 [facility] Comment on above: Performed By: #### V [id number], TONY, CMP, FE and TIBC, CBC #### [facility] [address] [place] [address] [place] #### SPE, KAPPA, LEXI SERUM #### [facility] , Total Iron Binding Capacity 281 ug/dL Normal 255-450 [facility] Comment on above: Performed By: #### V [id number], TONY, CMP, FE and TIBC, CBC #### [facility] [address] [place] [address] [place] #### SPE, KAPPA, LEXI SERUM #### [facility] , Iron binding capacity [Mass/ volume] in Serum or PlasmaOrdered By: Chivo Keller on 02-22-2024 Iron binding capacity [Mass/Vol] 281 ug/dL 255-450 [facility] Iron saturation [Mass Fracti on] in Serum or PlasmaOrdered By: Chivo Keller on 02-22-2024 Iron saturation [Mass fraction] 30.2 % 20-50 [facility] Leukocytes [#/volume] correc bonnie for nucleated erythrocytes in Blood by Automated counOrdered By: Chivo Keller on 02-22-2024 WBC corrected for nucl RBC Auto (Bld) [#/Vol] 7.5 10*3/uL 4.1-10.5 [facility] Leukocytes [#/volume] in Blo od by Automated countOrdered By: Chivo Keller on 02-22-2024 WBC (Bld) [#/Vol] 7.5 10*3/uL Normal 4.1-10.5 [facility] Comment on above: Performed By: #### V [id number], TONY, CMP, FE and TIBC, CBC #### [place] [address] [place] #### SPE, KAPPA, LEXI SERUM #### [facility] , Lymphocytes [#/volume] in Bl ood by Automated countOrdered By: Chivo Keller on 02-22-2024 Lymphocytes (Bld) [#/Vol] 1.4 10*3/uL Normal 1.00-4.8 [facility] Comment on above: Performed By: #### V [id number], TONY, CMP, FE and TIBC, CBC #### [place] [address] [place] #### SPE, KAPPA, LEXI SERUM #### [facility] , Lymphocytes/100 leukocytes i n Blood by Automated countOrdered By: Chivo Keller on 02-22-2024 Lymphocytes/100 WBC (Bld) 19.1 % Normal . [facility] Comment on above: Performed By: #### V [id number], TONY, CMP, FE and TIBC, CBC #### [place] [address] [place] #### SPE, KAPPA, LEXI SERUM #### [facility] , MCH [Entitic mass] by Automa bonnie countOrdered By: Chivo Keller on 02-22-2024 MCH (RBC) [Entitic mass] 31.6 pg Normal 27.5-35.2 [facility] Comment on above: Performed By: #### V [id number], TONY, CMP, FE and TIBC, CBC #### [place] [address] [place] #### SPE, KAPPA, LEXI SERUM #### [facility] , MCHC Auto (RBC) [Mass/Vol]Or dered By: Chivo Keller on 02-22-2024 MCHC (RBC) [Mass/Vol] 33.9 g/dL 32.5-35.6 [facility] MCV [Entitic volume] by Auto mated countOrdered By: Chivo Keller on 02-22-2024 MCV (RBC) [Entitic vol] 93.2 fL Normal 83.5-101 [facility] Comment on above: Performed By: #### V [id number], TONY, CMP, FE and TIBC, CBC #### [facility] [address] [place] [address] #### SPE, KAPPA, LEXI SERUM #### [facility] , Neutrophils [#/volume] in Bl ood by Automated countOrdered By: Chivo Keller on 02-22-2024 Neutrophils (Bld) [#/Vol] 5.0 10*3/uL Normal 1.8-7.7 [facility] Comment on above: Performed By: #### V [id number], TONY, CMP, FE and TIBC, CBC #### [facility] [address] [place] [address] [place] #### SPE, KAPPA, LEXI SERUM #### [facility] , No Panel InformationOrdered By: Chivo Keller on 02-22-2024 Protein Electrophoresis M-Tobi Not observed g/dL Not Observed [facility] Protein Electrophoresis Note See comment . [facility] Comment on above: Protein electrophore sis scan will follow via computer,mail, or helpdesk manager delivery.Performed at: [place] [id number] Director: Nathan Munoz PhD, Phone: [phone] Serum Immunofixation See comment . [facility] Comment on above: No monoclonality det ected. Estimated GFR (CKD-EPI) 26.711 mL/Min [facility] Creatinine Clearance (Chem 29.06 [facility] Nucleated erythrocytes [Pres ence] in Blood by Automated countOrdered By: Chivo Keller on 02-22-2024 Nucleated RBC Auto Ql (Bld) 0.0 /100{WBC} 0-0.5 [facility] Platelet mean volume [Entiti c volume] in Blood by Automated countOrdered By: Chivo Keller on 02-22-2024 Platelet mean volume (Bld) [Entitic vol] 7.6 fL Normal 6.6-10.1 [facility] Comment on above: Performed By: #### V [id number], TONY, CMP, FE and TIBC, CBC #### [address] #### SPE, KAPPA, LEXI SERUM #### [facility] , Platelets [#/volume] in Bloo d by Automated countOrdered By: Chivo Keller on 02-22-2024 Platelets (Bld) [#/Vol] 196 10*3/uL Normal 150-450 [facility] Comment on above: Performed By: #### V [id number], TONY, CMP, FE and TIBC, CBC #### [address] #### SPE, KAPPA, LEXI SERUM #### [facility] , Potassium [Moles/volume] in Serum or PlasmaOrdered By: Chivo Keller on 02-22-2024 Potassium [Moles/Vol] 3.8 mmol/L Normal 3.5-5.1 [facility] Comment on above: Performed By: #### V [id number], TONY, CMP, FE and TIBC, CBC #### [place] [address] [place] #### SPE, KAPPA, LEXI SERUM #### [facility] , Protein Electrophoresis, Ser umon 02-22-2024 Tvcao-7-Akmtdmjy 0.2 g/dL Normal 0.0-0.4 [facility] Comment on above: Performed By: #### V [id number], TONY, CMP, FE and TIBC, CBC ####[address]#### SPE, KAPPA, LEXI SERUM ####[facility] , Hobyn-2-Shvtgtgf 0.8 g/dL Normal 0.4-1.0 [facility] Comment on above: Performed By: #### V [id number], TONY, CMP, FE and TIBC, CBC ####[address]#### SPE, KAPPA, LEXI SERUM ####[facility] , Beta Globulin 0.9 g/dL Normal 0.7-1.[address] [facility] Comment on above: Performed By: #### V [id number], TONY, CMP, FE and TIBC, CBC ####[address]#### SPE, KAPPA, LEXI SERUM ####[facility] , Gamma Globulin 1.0 g/dL Normal 0.4-1.8 [facility] Comment on above: Performed By: #### V [id number], TONY, CMP, FE and TIBC, CBC ####[address]#### SPE, KAPPA, LEXI SERUM ####[facility] , M-Tobi Not Observed Normal Not Observed [facility] Comment on above: Performed By: #### V [id number], TONY, CMP, FE and TIBC, CBC ####[address]#### SPE, KAPPA, LEXI SERUM ####[facility] , SPE-Note Normal . [facility] Comment on above: Result Comment: Prot ein electrophoresis scan will follow via computer, mail, or helpdesk manager delivery. Performed at: [address] [id number] Strip Machine Tender: Nathan Munoz PhD, Phone: [phone] Performed By: #### V [id number], TONY, CMP, FE and TIBC, CBC ####[place] [address] [address]#### SPE, KAPPA, LEXI SERUM ####[facility] , Protein [Mass/volume] in Ser um or PlasmaOrdered By: Chivo Keller on 02-22-2024 Protein [Mass/Vol] 6.8 g/dL Normal 6.0-8.5 [facility] Comment on above: Performed By: #### V [id number], TONY, CMP, FE and TIBC, CBC ####[address]#### SPE, KAPPA, LEXI SERUM ####[facility] , Protein [Mass/Vol] 7.4 g/dL Normal 6.4-8.9 [facility] Comment on above: Performed By: #### V [id number], TONY, CMP, FE and TIBC, CBC #### [address] #### SPE, KAPPA, LEXI SERUM #### [facility] , Serum globulin measurement ( mass/volume)Ordered By: Chivo Keller on 02-22-2024 Globulin (S) [Mass/Vol] 2.9 g/dL Normal 2.2-3.9 [facility] Comment on above: Performed By: #### V [id number], TONY, CMP, FE and TIBC, CBC ####[place] [address] [place]#### SPE, KAPPA, LEXI SERUM ####[facility] , Serum globulin measurement b y calculation (mass/volume)Ordered By: Chivo Keller on 02-22-2024 Globulin (S) [Mass/Vol] 3.0 g/dL Normal [facility] Comment on above: Performed By: #### V [id number], TONY, CMP, FE and TIBC, CBC #### [facility] [address] [place] [address] #### SPE, KAPPA, LEXI SERUM #### [facility] , Serum or plasma albumin/glob ulin mass ratioOrdered By: Chivo Keller on 02-22-2024 Albumin/Globulin [Mass ratio] 1.3 {ratio} Normal 0.7-1.7 [facility] Comment on above: Performed By: #### V [id number], TONY, CMP, FE and TIBC, CBC ####[place] [address] [place]#### SPE, KAPPA, LEXI SERUM ####[facility] , Albumin/Globulin [Mass ratio] 1.5 {ratio} Normal [facility] Comment on above: Performed By: #### V [id number], TONY, CMP, FE and TIBC, CBC #### [facility] [address] [place] [address] [place] #### SPE, KAPPA, LEXI SERUM #### [facility] , Serum or plasma alpha 1 glob ulin measurement by electrophoresis (mass/volume)Ordered By: Chivo Keller on 02-22-2024 Alpha 1 globulin Elph [Mass/Vol] 0.2 g/dL 0.0-0.4 [facility] Serum or plasma alpha 2 glob ulin measurement by electrophoresis (mass/volume)Ordered By: Cihvo Keller on 02-22-2024 Alpha 2 globulin Elph [Mass/Vol] 0.8 g/dL 0.4-1.0 [facility] Serum or plasma anion gap de terminationOrdered By: Chivo Keller on 02-22-2024 Anion gap [Moles/Vol] 10.6 mmol/L Normal 6.0-15.0 [facility] Comment on above: Performed By: #### V [id number], TONY, CMP, FE and TIBC, CBC #### [facility] [address] [place] [address] [place] #### SPE, KAPPA, LEXI SERUM #### [facility] , Serum or plasma beta globuli n measurement by electrophoresis (mass/volume)Ordered By: Chivo Keller on 02-22-2024 Beta globulin Elph [Mass/Vol] 0.9 g/dL 0.7-1.3 [facility] Serum or plasma gamma globul in measurement by electrophoresis (mass/volume)Ordered By: Chivo Keller on 02-22-2024 Gamma globulin Elph [Mass/Vol] 1.0 g/dL 0.4-1.8 [facility] Sodium [Moles/volume] in Ser um or PlasmaOrdered By: Chivo Keller on 02-22-2024 Sodium [Moles/Vol] 140 mmol/L Normal 136-145 [facility] Comment on above: Performed By: #### V [id number], TONY, CMP, FE and TIBC, CBC #### [address] #### SPE, KAPPA, LEXI SERUM #### [facility] , Transferrin [Mass/volume] in Serum or PlasmaOrdered By: Chivo Keller on 02-22-2024 Transferrin [Mass/Vol] 201 mg/dL Low 203-362 [facility] Comment on above: Performed By: #### V [id number], TONY, CMP, FE and TIBC, CBC #### [facility] [address] [place] [address] [place] #### SPE, KAPPA, LEXI SERUM #### [facility] , Urea nitrogen [Mass/volume] in Serum or PlasmaOrdered By: Chivo Keller on 02-22-2024 Urea nitrogen [Mass/Vol] 59 mg/dL High 7-25 [facility] Comment on above: Performed By: #### V [id number], TONY, CMP, FE and TIBC, CBC #### [facility] [address] [place] [address] [place] #### SPE, KAPPA, LEXI SERUM #### [facility] , Vit. B12/Folate Profileon Folate 36.0 ng/mL Normal >5.9 [facility] Comment on above: Result Comment: Echo te reference range: >5.9 ng/ml The WHO technical consultation on folate and vitamin b12 deficiencies has determined that folate concentrations less than 4 ng/ml are considered deficient. PERFORMED BY: [facility] [address] [place] [address] PATHOLOGIST ALODIZE MACHINE OPERATOR TRU UMANZOR M.D. Performed By: #### V [id number], TONY, CMP, FE and TIBC, CBC #### [facility] [address] [place] [address] [place] #### SPE, KAPPA, LEXI SERUM #### [facility] , Vitamin B12 ser/plasOrdered By: Chivo Keller on 02-22-2024 Cobalamin (Vitamin B12) [Mass/Vol] 649 pg/mL Normal 180-914 [facility] Comment on above: Performed By: #### V [id number], TONY, CMP, FE and TIBC, CBC #### [facility] [address] [place] [address] [place] #### SPE, KAPPA, LEXI SERUM #### [facility] , Automated urine specific gra vity by refractometryon 02-01-2024 Specific gravity Refractometry automated (U) [Rel density] 1.010 1.005-1.025 [facility] Bilirubin Auto test strip (U ) [Mass/Vol]on 02-01-2024 Bilirubin (U) [Mass/Vol] Negative NEGATIVE [facility] Color Auto (U)on 02-01-2024 Color (U) LT. YELLOW YELLOW [facility] Erythrocyte distribution wid th Auto (RBC) [Ratio]on 02-01-2024 Erythrocyte distribution width (RBC) [Ratio] 13.5 % 11.0-15.0 [facility] Estimated glomerular filtrat ion rate (GFR) non- Americanon 02-01-2024 GFR/1.73 sq M.predicted among non-blacks MDRD (S/P/Bld) [Vol rate/Area] 23 mL/min/{1.73_m2} Low >=60 [facility] Glucose [Mass/volume] in Uri ne by Test stripon 02-01-2024 Glucose Test strip (U) [Mass/Vol] Negative NEGATIVE [facility] Hematocrit Auto (Bld) [Volum e fraction]on 02-01-2024 Hematocrit (Bld) [Volume fraction] 37.0 % Low 42.0-54.0 [facility] Hemoglobin [Mass/volume] in Bloodon 02-01-2024 Hemoglobin (Bld) [Mass/Vol] 11.9 g/dL Low 14.0-18.0 [facility] Ketones Auto test strip (U) [Mass/Vol]on 02-01-2024 Ketones (U) [Mass/Vol] Negative NEGATIVE [facility] Laboratory - Chemistry and C hemistry - challengeon 02-01-2024 Calcium [Mass/Vol] 9.1 mg/dL 8.5-10.1 [facility] Chloride [Moles/Vol] 101 mmol/L 98-107 [facility] CO2 [Moles/Vol] 31.5 mmol/L 21.0-32.0 [facility] Creatinine [Mass/Vol] 2.66 mg/dL High 0.70-1.30 [facility] Free T4 [Mass/Vol] 1.03 ng/dL 0.76-1.46 [facility] GFR/1.73 sq M.predicted MDRD (S/P/Bld) [Vol rate/Area] 28 mL/min/{1.73_m2} Low >=60 [facility] Glucose [Mass/Vol] 128 mg/dL High 74-106 [facility] Magnesium [Mass/Vol] 2.4 mg/dL 1.8-2.4 [facility] Potassium [Moles/Vol] 3.8 mmol/L 3.5-5.1 [facility] Sodium [Moles/Vol] 141 mmol/L 136-145 [facility] TSH Qn 8.924 m[IU]/L High 0.358-3.740 [facility] Urea nitrogen [Mass/Vol] 55.0 mg/dL High 7.0-18.0 [facility] Urea nitrogen/Creatinine [Mass ratio] 20.7 mg/mg [facility] Laboratory - Urinalysison Protein (U) [Mass/Vol] 25.1 mg/dL High <=11.9 [facility] Leukocytes [#/volume] correc bonnie for nucleated erythrocytes in Blood by Automated counon 02-01-2024 WBC corrected for nucl RBC Auto (Bld) [#/Vol] 8.0 10 3/uL 4.0-11.0 [facility] MCH Auto (RBC) [Entitic mass ]on 02-01-2024 MCH (RBC) [Entitic mass] 30.9 pg 25.9-34.0 [facility] MCHC Auto (RBC) [Mass/Vol]on 02-01-2024 MCHC (RBC) [Mass/Vol] 32.2 g/dL 29.9-35.2 [facility] MCV Auto (RBC) [Entitic vol] on 02-01-2024 MCV (RBC) [Entitic vol] 96.1 fL High 80.0-94.0 [facility] No Panel Informationon 01-31 25-Hydroxy Vitamin D Total 94.2 ng/mL [facility] Comment on above: <20 ng/mL Vit D defi cient20-<30 ng/mL Vit D neebhxucxrsp02-507 ng/mL Vit D sufficient>100 ng/mL Potential Toxicity Parathyroid Hormone (Intact) 52 pg/mL 15-65 [facility] Comment on above: Performed at: [employer] [place], [place] [id number] Director: Nathan Munoz PhD, Phone: [phone] Phosphorus Level 4.1 mg/dL 2.6-4.7 [facility] Prostate Specific Antigen Screen 0.91 ng/mL <=4.00 [facility] Total Triiodothyronine 73 ng/dL 71-180 [facility] Comment on above: Performed at: [employer] [place], [place] [id number] Director: Nathan Munoz PhD, Phone: [phone] Urine Random Creatinine 77.24 mg/dL 20.00-300.0 0 [facility] Platelet mean volume Auto (B ld) [Entitic vol]on 02-01-2024 Platelet mean volume (Bld) [Entitic vol] 9.5 fL 9.5-13.5 [facility] Platelets Auto (Bld) [#/Vol] on 02-01-2024 Platelets (Bld) [#/Vol] 199 10 3/uL 150-450 [facility] Protein Auto test strip (U) [Mass/Vol]on 02-01-2024 Protein (U) [Mass/Vol] TRACE mg/dL NEG/TRACE [facility] RBC Auto (Bld) [#/Vol]on RBC (Bld) [#/Vol] 3.85 10 6/uL Low 4.70-6.10 [facility] Serum or plasma anion gap de terminationon 02-01-2024 Anion gap [Moles/Vol] 12.3 mmol/L [facility] Specific gravity Auto test s trip (U) [Rel density]on 02-01-2024 Specific gravity (U) [Rel density] CLEAR CLEAR [facility] Urine hemoglobin detection b y automated test stripon 02-01-2024 Hemoglobin Auto test strip Ql (U) Negative NEGATIVE [facility] Urine nitrite detection by a utomated test stripon 02-01-2024 Nitrite Auto test strip Ql (U) SMALL Abnormal NEGATIVE [facility] Nitrite Auto test strip Ql (U) Negative NEGATIVE [facility] Urine protein/creatinine rat ioon 02-01-2024 Protein/Creatinine (U) [Ratio] 0.32 [facility] Urobilinogen Auto test strip (U) [Mass/Vol]on 02-01-2024 Urobilinogen Qn (U) 0.2 {Jagruti'U}/dL 0.2-1.0 [facility] pH Auto test strip (U)on pH (U) 6.0 [pH] 5.0-9.0 [facility] Cholesterol in LDL Calc [Mas s/Vol]on 12-19-2023 Cholesterol in LDL [Mass/Vol] 81.8 mg/dL [facility] Comment on above: <100 mg/dl [id number] 0-129 mg/dl NEAR OR ABOVE [id number] mg/dl BORDERLINE AZDF476-194 mg/dl HIGH>190 mg/dl VERY HIGH Cholesterol in VLDL Calc [Ma ss/Vol]on 12-19-2023 Cholesterol in VLDL [Mass/Vol] 23.2 mg/dL [facility] Glucose mean value [Mass/vol ume] in Blood Estimated from glycated hemoglobinon 12-19-2023 Average glucose Estimated from glycated hemoglobin (Bld) [Mass/Vol] 137 mg/dL [facility] Laboratory - Chemistry and C hemistry - challengeon 12-19-2023 Cholesterol [Mass/Vol] 148 mg/dL <=200 [facility] Cholesterol in HDL [Mass/Vol] 43 mg/dL 40-60 [facility] Comment on above: > or =60 mg/dl - LOW CARDIOVASCULAR RISK<40 mg/dl - HIGH CARDIOVASCULAR RISK Free T4 [Mass/Vol] 1.04 ng/dL 0.76-1.46 [facility] Triglyceride [Mass/Vol] 116 mg/dL <=150 [facility] TSH Qn 11.812 m[IU]/L 0.358-3.740 [facility] Laboratory - Hematology and Cell countson 12-19-2023 HbA1c (Bld) [Mass fraction] 6.4 % 4.5-6.2 [facility] Comment on above: ADA RECOMMENDED LIMI T 4.0 - 6.0ADA THERAPEUTIC TARGET < 7.0ACTION SUGGESTED> 7.0 Serum or plasma total choles terol/high density lipoprotein (HDL) cholesterol mass ernesto 12-19-2023 Cholesterol.total/Lissette sterol in HDL [Mass ratio] 3.4 {ratio} [facility] Comment on above: 3.3 - 4.4 LOW RISK4. 4 - 7.1 AVERAGE RISK7.1 - 11.0 MODERATE RISK>11.0 HIGH RISK Alanine aminotransferase [En zymatic activity/volume] in Serum or PlasmaOrdered By: Leigha Nelson on 08-30-2023 ALT [Catalytic activity/Vol] 20 U/L Normal 7-52 [facility] Comment on above: Performed By: #### C EA, CBC, FE and TIBC, CMP, TONY ####[address] Albumin [Mass/volume] in Ser um or Plasma by Bromocresol green (BCG) dye binding methoOrdered By: Leigha Nelson on 08-30-2023 Albumin BCG dye [Mass/Vol] 4.4 g/dL 3.5-5.7 [facility] Alkaline phosphatase [Enzyma tic activity/volume] in Serum or PlasmaOrdered By: Leigha Nelson on 08-30-2023 ALP [Catalytic activity/Vol] 114 U/L High 34-104 [facility] Comment on above: Performed By: #### C EA, CBC, FE and TIBC, CMP, TONY ####[address] Aspartate aminotransferase [ Enzymatic activity/volume] in Serum or PlasmaOrdered By: Leigha Talamantesrenée on 08-30-2023 AST [Catalytic activity/Vol] 23 U/L Normal 13-39 [facility] Comment on above: Performed By: #### C EA, CBC, FE and TIBC, CMP, TONY ####[address] Automated basophil %Ordered By: Leigha Nelson on 08-30-2023 Basophils/100 WBC (Bld) 0.5 % Normal . [facility] Comment on above: Performed By: #### C EA, CBC, FE and TIBC, CMP, TONY ####[address] Automated basophil countOrde red By: Leigha Bangurajimena on 08-30-2023 Basophils (Bld) [#/Vol] 0.0 10*3/uL Normal 0.0-0.2 [facility] Comment on above: Result Comment: PERF ORMED BY: [facility] [address] [place] [address] PATHOLOGIST ALODIZE MACHINE OPERATOR TRU UMANZOR M.D. Performed By: #### C EA, CBC, FE and TIBC, CMP, TONY ####[address] Automated blood monocyte cou ntOrdered By: Leigha Nelson on 08-30-2023 Monocytes (Bld) [#/Vol] 0.5 10*3/uL Normal 0.0-0.8 [facility] Comment on above: Performed By: #### C EA, CBC, FE and TIBC, CMP, TONY ####[address] Automated eosinophil %Ordere d By: Leigha Nelson on 08-30-2023 Eosinophils/100 WBC (Bld) 3.8 % Normal . [facility] Comment on above: Performed By: #### C EA, CBC, FE and TIBC, CMP, TONY ####[address] Automated eosinophil countOr dered By: Leigha Nelson on 08-30-2023 Eosinophils (Bld) [#/Vol] 0.3 10*3/uL Normal 0.0-0.45 [facility] Comment on above: Performed By: #### C EA, CBC, FE and TIBC, CMP, TOYN ####[address] Automated monocyte %Ordered By: Leigha Nelson on 08-30-2023 Monocytes/100 WBC (Bld) 7.9 % Normal . [facility] Comment on above: Performed By: #### C EA, CBC, FE and TIBC, CMP, TONY ####[address] Automated neutrophil %Ordere d By: Leigha Nelson on 08-30-2023 Neutrophils/100 WBC (Bld) 65.9 % Normal . [facility] Comment on above: Performed By: #### C EA, CBC, FE and TIBC, CMP, TONY ####[address] Bilirubin.total [Mass/volume ] in Serum or PlasmaOrdered By: Leigha Nelson on 08-30-2023 Bilirubin [Mass/Vol] 0.8 mg/dL Normal 0.3-1.0 [facility] Comment on above: Performed By: #### C EA, CBC, FE and TIBC, CMP, TONY ####[facility] [id number] [place] [id number] [facility] CT abdomen pelvis wo conon 1 10-30-2022 CT abdomen pelvis wo con [facility] [place] [id number] Scan Report Signed Patient: Nas Ren MR#: [id number] 24 : 1940 Acct:[id number] Age/Sex: 83 / M ADM Date: 08/30/23 Loc: XT Room: Type: [facility] RCR Attending Dr: Chivo Keller II DO Copies to: EDWARD Luke II, DO Ordering Provider: Leigha Nelson APRN Date of Service: 08/30/23 CT/CT chest wo con: surveillance ([id number]) CT/CT abdomen pelvis wo con: surveillance CT [...] of iterative reconstruction technique. FINDINGS: CT chest: Mediastinum:Pacemake r device is in place. Cardiomegaly is noted. Thoracic aorta is normal in caliber. Pulmonary trunk appears nondilated. No pericardial effusion. Calcified mediastinal and left hilar nodes. The esophagus is grossly unremarkable. Lungs:Emphysematous changes. Mild bibasilar atelectasis/scarring . No consolidation pneumothorax or pleural effusion. Calcified [...] abnormality.[ Pelvis:[Urinary bladder is grossly unremarkable. Prostatomegaly. Peritoneum/Retroperi toneum:No free air, free fluid or lymphadenopathy.[ Abd wall/Bones:Abdominal wall demonstrates no acute findings. Osseous structures demonstrate degenerative change.[ CT/CT chest wo con IMPRESSION: No significant change in chest, abdomen or pelvis findings compared to the prior study from 02/28/2023. Impression dictated by: Sotero Scott Jr., D.O.08/30/2023 1:10 PM Dictation Location: [place] [address] Transcribed By: [facility] 08/30/23 1310 Dictated By: Sotero Scott Jr, DO 08/30/23 1304 Signed By: 08/30/23 1310 Normal [facility] Calcium [Mass/volume] in Ser um or PlasmaOrdered By: Leigha Omar on 08-30-2023 Calcium [Mass/Vol] 9.7 mg/dL Normal 8.6-10.3 [facility] Comment on above: Performed By: #### C EA, CBC, FE and TIBC, CMP, TONY ####[facility] [id number] Carbon dioxide, total [Moles /volume] in Serum or PlasmaOrdered By: Leigha Nelson on 08-30-2023 CO2 [Moles/Vol] 35.5 mmol/L High 21.0-31.0 [facility] Comment on above: Performed By: #### C EA, CBC, FE and TIBC, CMP, TONY ####[address] Chloride [Moles/volume] in S alayna or PlasmaOrdered By: Leigha Omar on 08-30-2023 Chloride [Moles/Vol] 102 mmol/L Normal 98-107 [facility] Comment on above: Performed By: #### C EA, CBC, FE and TIBC, CMP, TONY ####[address] Complete Blood Count Auto Di ffon 08-30-2023 Mean Corpuscular HGB Conc 33.3 g/dL Normal 32.5-35.6 [facility] Comment on above: Performed By: #### C EA, CBC, FE and TIBC, CMP, TONY ####[address] NRBC% 0.1 /100{WBC} Normal 0-0.[address] [facility] Comment on above: Performed By: #### C EA, CBC, FE and TIBC, CMP, TONY ####[address] Comprehensive Metabolic Pane vijay 08-30-2023 Albumin [Mass/Vol] 4.4 g/dL Normal 3.5-5.7 [facility] Comment on above: Performed By: #### C EA, CBC, FE and TIBC, CMP, TONY ####[address] Creatinine Clr Calc Pharmacy 30.81 Normal [facility] Comment on above: Performed By: #### C EA, CBC, FE and TIBC, CMP, TONY ####[address] GFR/1.73 sq M.predicted MDRD (S/P/Bld) [Vol rate/Area] 27.976 mL/min/{1.73_m2} Normal [facility] Comment on above: Performed By: #### C EA, CBC, FE and TIBC, CMP, TONY ####[address] Creatinine [Mass/volume] in Serum or PlasmaOrdered By: Leigha Nelson on 08-30-2023 Creatinine [Mass/Vol] 2.29 mg/dL High 0.70-1.30 [facility] Comment on above: Performed By: #### C EA, CBC, FE and TIBC, CMP, TONY ####[address] [place] [address] [facility] Erythrocyte distribution wid th [Ratio] by Automated countOrdered By: Leigha Nelson on 08-30-2023 Erythrocyte distribution width (RBC) [Ratio] 14.8 % Normal 12.0-14.8 [facility] Comment on above: Performed By: #### C EA, CBC, FE and TIBC, CMP, TONY ####[place] [id number] [facility] Erythrocytes [#/volume] in B lood by Automated countOrdered By: Leigha Nelson on 08-30-2023 RBC (Bld) [#/Vol] 3.96 10*6/uL Normal 3.90-5.60 [facility] Comment on above: Performed By: #### C EA, CBC, FE and TIBC, CMP, TONY ####[place] [id number] [facility] Ferritin [Mass/volume] in Se rum or PlasmaOrdered By: Leigha Nelson on 08-30-2023 Ferritin [Mass/Vol] 239.3 ng/mL Normal 23.9-336.2 [facility] Comment on above: Result Comment: PERF ORMED BY: [facility] [address] [place] [place] [id number] PATHOLOGIST [employer]OD[employer] MACHINE OPERATOR TRU UMANZOR M.D. Performed By: #### C EA, CBC, FE and TIBC, CMP, TONY ####[place] [id number] [facility] Glucose [Mass/volume] in Ser um or PlasmaOrdered By: Leigha Bangurajimena on 08-30-2023 Glucose [Mass/Vol] 111 mg/dL High 70-100 [facility] Comment on above: ADA recommended refe rence rangeRandom Glucose Reference Range is dependent on time and content of last meal. Glucose of more than 200 mg/dL in a nonstressed, ambulatory subject supports the diagnosis of Diabetes Mellitus. Result Comment: [place] om Glucose Reference Range is dependent on time and content of last meal. Glucose of more than 200 mg/dL in a nonstressed, ambulatory subject supports the diagnosis of Diabetes Mellitus. ADA recommended reference range Performed By: #### C EA, CBC, FE and TIBC, CMP, TONY ####[place] [id number] [facility] Hematocrit [Volume Fraction] of Blood by Automated countOrdered By: Leigha Nelson on 08-30-2023 Hematocrit (Bld) [Volume fraction] 36.8 % Low 38.8-50.0 [facility] Comment on above: Performed By: #### C EA, CBC, FE and TIBC, CMP, TONY ####[place] [id number] [facility] Hemoglobin [Mass/volume] in BloodOrdered By: Leigha Nelson on 08-30-2023 Hemoglobin (Bld) [Mass/Vol] 12.3 g/dL Low 13.0-17.0 [facility] Comment on above: Performed By: #### C EA, CBC, FE and TIBC, CMP, TONY ####[place] [id number] [facility] Iron [Mass/volume] in Serum or PlasmaOrdered By: Leigha Nelson on 08-30-2023 Iron [Mass/Vol] 84 ug/dL Normal 50-212 [facility] Comment on above: Performed By: #### C EA, CBC, FE and TIBC, CMP, TONY ####[place] [id number] [facility] Iron and TIBC Profileon 08-16 % Iron Saturation 29.0 % Normal 20-50 [facility] Comment on above: Performed By: #### C EA, CBC, FE and TIBC, CMP, TONY ####[address] [address] [facility] Total Iron Binding Capacity 290 ug/dL Normal 255-450 [facility] Comment on above: Performed By: #### C EA, CBC, FE and TIBC, CMP, TONY ####[address] [address] [facility] Iron binding capacity [Mass/ volume] in Serum or PlasmaOrdered By: Leigha Bangurajimena on 08-30-2023 Iron binding capacity [Mass/Vol] 290 ug/dL 255-450 [facility] Iron saturation [Mass Fracti on] in Serum or PlasmaOrdered By: Leigha Nelson on 08-30-2023 Iron saturation [Mass fraction] 29.0 % 20-50 [facility] Leukocytes [#/volume] correc bonnie for nucleated erythrocytes in Blood by Automated counOrdered By: Leigha Nelson on 08-30-2023 WBC corrected for nucl RBC Auto (Bld) [#/Vol] 7.0 10*3/uL 4.1-10.5 [facility] Leukocytes [#/volume] in Blo od by Automated countOrdered By: Leigha Nelson on 08-30-2023 WBC (Bld) [#/Vol] 7.0 10*3/uL Normal 4.1-10.5 [facility] Comment on above: Performed By: #### C EA, CBC, FE and TIBC, CMP, TONY ####[place] [address] [place] Lymphocytes [#/volume] in Bl ood by Automated countOrdered By: Leigha Bangurajimena on 08-30-2023 Lymphocytes (Bld) [#/Vol] 1.5 10*3/uL Normal 1.00-4.8 [facility] Comment on above: Performed By: #### C EA, CBC, FE and TIBC, CMP, TONY ####[address] Lymphocytes/100 leukocytes i n Blood by Automated countOrdered By: Leigha Talamantesrenée on 08-30-2023 Lymphocytes/100 WBC (Bld) 21.9 % Normal . [facility] Comment on above: Performed By: #### C EA, CBC, FE and TIBC, CMP, TONY ####[place] [address] [place] MCH [Entitic mass] by Automa bonnie countOrdered By: Leigha Nelson on 08-30-2023 MCH (RBC) [Entitic mass] 30.9 pg Normal 27.5-35.2 [facility] Comment on above: Performed By: #### C EA, CBC, FE and TIBC, CMP, TONY ####[place] [address] MCHC Auto (RBC) [Mass/Vol]Or dered By: Leigha Nelson on 08-30-2023 MCHC (RBC) [Mass/Vol] 33.3 g/dL 32.5-35.6 [facility] MCV [Entitic volume] by Auto mated countOrdered By: Leigha Nelson on 08-30-2023 MCV (RBC) [Entitic vol] 92.8 fL Normal 83.5-101 [facility] Comment on above: Performed By: #### C EA, CBC, FE and TIBC, CMP, TONY ####[address] Neutrophils [#/volume] in Bl ood by Automated countOrdered By: Leigha Nelson on 08-30-2023 Neutrophils (Bld) [#/Vol] 4.6 10*3/uL Normal 1.8-7.7 [facility] Comment on above: Performed By: #### C EA, CBC, FE and TIBC, CMP, TONY ####[address] No Panel InformationOrdered By: Leigha Nelson on 08-30-2023 Estimated GFR (CKD-EPI) 27.976 mL/Min [facility] Creatinine Clearance (Chem 30.81 [facility] Nucleated erythrocytes [Pres ence] in Blood by Automated countOrdered By: Leigha Nelson on 08-30-2023 Nucleated RBC Auto Ql (Bld) 0.1 /100{WBC} 0-0.5 [facility] Platelet mean volume [Entiti c volume] in Blood by Automated countOrdered By: Leigha Nelson on 08-30-2023 Platelet mean volume (Bld) [Entitic vol] 7.6 fL Normal 6.6-10.1 [facility] Comment on above: Performed By: #### C EA, CBC, FE and TIBC, CMP, TONY ####[address] Platelets [#/volume] in Bloo d by Automated countOrdered By: Leigha Nelson on 08-30-2023 Platelets (Bld) [#/Vol] 206 10*3/uL Normal 150-450 [facility] Comment on above: Performed By: #### C EA, CBC, FE and TIBC, CMP, TONY ####[address] Potassium [Moles/volume] in Serum or PlasmaOrdered By: Leigha Talamantesrenée on 08-30-2023 Potassium [Moles/Vol] 4.5 mmol/L Normal 3.5-5.1 [facility] Comment on above: Performed By: #### C EA, CBC, FE and TIBC, CMP, TONY ####[address] Protein [Mass/volume] in Ser um or PlasmaOrdered By: Leigha Talamantesrenée on 08-30-2023 Protein [Mass/Vol] 6.9 g/dL Normal 6.4-8.9 [facility] Comment on above: Performed By: #### C EA, CBC, FE and TIBC, CMP, TONY ####[address] Serum globulin measurement b y calculation (mass/volume)Ordered By: Leigha Bangurajimena on 08-30-2023 Globulin (S) [Mass/Vol] 2.5 g/dL Normal [facility] Comment on above: Performed By: #### C EA, CBC, FE and TIBC, CMP, TONY ####[address] Serum or plasma albumin/glob ulin mass ratioOrdered By: Leigha Talamantesrenée on 08-30-2023 Albumin/Globulin [Mass ratio] 1.8 {ratio} Normal [facility] Comment on above: Performed By: #### C EA, CBC, FE and TIBC, CMP, TONY ####[address] Serum or plasma anion gap de terminationOrdered By: Leigha Talamantesrenée on 08-30-2023 Anion gap [Moles/Vol] 10.0 mmol/L Normal 6.0-15.0 [facility] Comment on above: Performed By: #### C EA, CBC, FE and TIBC, CMP, TONY ####[place] [address] [address] Serum or plasma carcinoembry onic antigen measurement (mass/volume)Ordered By: Leigha Nelson on 08-30-2023 Carcinoembryonic Ag [Mass/Vol] 2.1 ng/mL 0.0-3.0 [facility] Sodium [Moles/volume] in Ser um or PlasmaOrdered By: Leigha Nelson on 08-30-2023 Sodium [Moles/Vol] 143 mmol/L Normal 136-145 [facility] Comment on above: Performed By: #### C EA, CBC, FE and TIBC, CMP, TONY ####[place] [address] [address] Transferrin [Mass/volume] in Serum or PlasmaOrdered By: Leigha Nelson on 08-30-2023 Transferrin [Mass/Vol] 207 mg/dL Normal 203-362 [facility] Comment on above: Performed By: #### C EA, CBC, FE and TIBC, CMP, TONY ####[place] [address] [place] [id number] [facility] Urea nitrogen [Mass/volume] in Serum or PlasmaOrdered By: Leigha Nelson on 08-30-2023 Urea nitrogen [Mass/Vol] 51 mg/dL High 7-25 [facility] Comment on above: Performed By: #### C EA, CBC, FE and TIBC, CMP, TONY ####[place] [id number] [facility] ECHOCARDIO M/2D COMPLETEon 0 02-28-2023 ECHOCARDIO M/2D COMPLETE Patient: NAS RENKeo Exam Date: 02/28/2023 : 1940 Gender:M Ordering : MRS. MADDI PEACETHOMAS [employer] Admission #: [id number] Family : DR ARNIE LINDA DDom Order #: [id number] CLICK HERE TO VIEW EXAM ECHOCARDIOGRAM REPORT [...] Ortiz M.D. on 02/28/2023 at 20:26 Normal [facility] T3, TOTAL (TRIIODOTHYRONINE) on 02-16-2023 T3, TOTAL 83 ng/dL Normal 71-180 [facility] Comment on above: Performed By: #### F T4, PSASC #### [facility] [address] [place] [address] Dr. Benito Schwartz FREE T4on 02-15-2023 Free T4 [Mass/Vol] 1.03 ng/dL Normal 0.76-1.46 [facility] Comment on above: Performed By: #### F T4 #### [facility] [address] [place] [address] Dr. Benito Schwartz LIPID PROFILEon 02-15-2023 CHOL-HDL RATIO NORM SEE BELOW Normal [facility] Comment on above: Result Comment: 3.3 - 4.4 LOW RISK 4.4 - 7.1 AVERAGE RISK 7.1 - 11.0 MODERATE RISK >11.0 HIGH RISK Performed By: #### T SH, FT3, BMP #### [facility] [address] [place] [address] Dr. Benito Schwartz Cholesterol [Mass/Vol] 164 mg/dL Normal <=200 [facility] Comment on above: Performed By: #### T SH, FT3, BMP #### [facility] [address] [place] [address] Dr. Benito Schwartz Cholesterol in HDL [Mass/Vol] 41 mg/dL Normal 40-60 [facility] Comment on above: Performed By: #### T SH, FT3, BMP #### [facility] [address] [place] [address] Dr. Benito Schwartz Cholesterol in LDL [Mass/Vol] 104.2 mg/dL Normal [facility] Comment on above: Performed By: #### T SH, FT3, BMP #### [facility] [address] [place] [address] Dr. Benito Schwartz Cholesterol.total/Lissette sterol in HDL [Mass ratio] 4.0 {ratio} Normal [facility] Comment on above: Performed By: #### T SH, FT3, BMP #### [facility] [address] [place] [address] Dr. Benito Schwartz HDL NORMAL > or = 60 mg/dl - LOW CARDIOVASCULAR RISK <40 mg/dl - HIGH CARDIOVASCULAR RISK Normal [facility] Comment on above: Performed By: #### T SH, FT3, BMP #### [facility] [address] [place] [address] Dr. Benito Schwartz LDL CALC NORMAL SEE BELOW Normal [facility] Comment on above: Result Comment: <100 mg/dl OPTIMAL 100 - 129 mg/dl NEAR OR ABOVE OPTIMAL 130 - 159 mg/dl BORDERLINE HIGH 160 - 189 mg/dl HIGH >190 mg/dl VERY HIGH Performed By: #### T SH, FT3, BMP #### [facility] [address] [place] [address] Dr. Benito Schwartz Triglyceride [Mass/Vol] 94 mg/dL Normal <=150 T [facility] Comment on above: Performed By: #### T SH, FT3, BMP #### [facility] [address] [place] [address] Dr. Benito Schwartz VLDL CALC 18.8 mg/dL Normal [facility] Comment on above: Performed By: #### T SH, FT3, BMP #### [facility] [address] [place] [address] Dr. Benito Schwartz TSHon 02-15-2023 TSH 22.732 uIU/mL Critically high 0.358-3.740 [facility] Comment on above: Performed By: #### F T4, PSASC #### [facility] [address] [place] [address] Dr. Benito Schwartz PTH INTACTon 01-03-2023 PTH, Intact 46 pg/mL Normal 15-65 [facility] Comment on above: Performed By: #### U RTPCR #### [facility] [address] [place] [address] Dr. Benito Schwartz T3, TOTAL (TRIIODOTHYRONINE) on 01-03-2023 T3, TOTAL 77 ng/dL Normal 71-180 [facility] Comment on above: Performed By: #### T SH, FT3, BMP #### [facility] [address] [place] [address] Dr. Benito Schwartz CBC AUTO DIFFon 01-02-2023 BASO # 0.0 103/ul Normal 0.0-0.1 [facility] Comment on above: Performed By: #### C BC #### [facility] [address] [place] [address] Dr. Beniot Schwartz Basophils/100 WBC (Bld) 0.4 % Normal 0.2-2.0 [facility] Comment on above: Performed By: #### C BC #### [facility] [address] [place] [address] Dr. Beniot Schwartz EO # 0.4 103/ul Normal 0.0-0.7 [facility] Comment on above: Performed By: #### C BC #### [facility] [address] [place] [address] Dr. Benito Schwartz Eosinophils/100 WBC (Bld) 5.1 % Normal 0.9-7.0 [facility] Comment on above: Performed By: #### C BC #### [facility] [address] [place] [address] Dr. Benito Schwartz Erythrocyte distribution width (RBC) [Ratio] 13.2 % Normal 11.0-15.0 [facility] Comment on above: Performed By: #### C BC #### [facility] [address] [place] [address] Dr. Benito Schwartz Hematocrit (Bld) [Volume fraction] 37.4 % Critically low 42.0-54.0 [facility] Comment on above: Performed By: #### C BC #### [facility] [address] [place] [address] Dr. Benito Schwartz Hemoglobin (Bld) [Mass/Vol] 12.4 g/dL Critically low 14.0-18.0 [facility] Comment on above: Performed By: #### C BC #### [facility] [address] [place] [address] Dr. Benito Schwartz IG # 0.03 10e3/ul Normal 0.00-0.03 [facility] Comment on above: Performed By: #### C BC #### [facility] [address] [place] [address] Dr. Benito Schwartz IG % 0.4 % Normal 0.0-0.5 [facility] Comment on above: Performed By: #### C BC #### [facility] [address] [place] [address] Dr. Benito Schwartz LYMPH # 1.6 103/ul Normal 1.2-3.8 [facility] Comment on above: Performed By: #### C BC #### [facility] [address] [place] [address] Dr. Benito Schwartz Lymphocytes/100 WBC (Bld) 20.3 % Critically low 20.5-60.0 [facility] Comment on above: Performed By: #### C BC #### [facility] [address] [place] [address] Dr. Benito Schwartz MANUAL DIFF REQ NO Normal [facility] Comment on above: Performed By: #### C BC #### [facility] [address] [place] [address] Dr. Benito Schwartz MCH (RBC) [Entitic mass] 31.7 pg Normal 25.9-34.0 [facility] Comment on above: Performed By: #### C BC #### [facility] [address] [place] [address] Dr. Benito Schwartz MCHC (RBC) [Mass/Vol] 33.2 g/dL Normal 29.9-35.2 [facility] Comment on above: Performed By: #### C BC #### [facility] [address] [place] [address] Dr. Benito Schwartz MCV (RBC) [Entitic vol] 95.7 fL Critically high 80.0-94 .0 [facility] Comment on above: Performed By: #### C BC #### [facility] [address] [place] [address] Dr. Benito Schwartz MONO # 0.7 103/ul Normal 0.3-0.8 [facility] Comment on above: Performed By: #### C BC #### [facility] [address] [place] [address] Dr. Benito Schwartz Monocytes/100 WBC (Bld) 8.6 % Normal 1.7-12.0 [facility] Comment on above: Performed By: #### C BC #### [facility] [address] [place] [address] Dr. Benito Schwartz NEUT # 5.3 103/ul Normal 1.4-6.5 [facility] Comment on above: Performed By: #### C BC #### [facility] [address] [place] [address] Dr. Benito Schwartz Neutrophils/100 WBC (Bld) 65.2 % Normal 43.0-75.0 [facility] Comment on above: Performed By: #### C BC #### [facility] [address] [place] [address] Dr. Benito Schwartz Platelet mean volume (Bld) [Entitic vol] 9.0 fL Critically low 9.5-13.5 [facility] Comment on above: Performed By: #### C BC #### [facility] [address] [place] [address] Dr. Benito Schwartz PLT 209 103/ul Normal 150-450 [facility] Comment on above: Performed By: #### C BC #### [facility] [address] [place] [address] Dr. Benito Schwartz RBC 3.91 106/ul Critically low 4.70-6.10 [facility] Comment on above: Performed By: #### C BC #### [facility] [address] [place] [address] Dr. Benito Schwartz WBC 8.1 103/ul Normal 4.0-11.0 [facility] Comment on above: Performed By: #### C BC #### [facility] [address] [place] [address] Dr. Benito Schwartz FREE T4on 01-02-2023 Free T4 [Mass/Vol] 0.87 ng/dL Normal 0.76-1.46 [facility] Comment on above: Performed By: #### F T4, PSASC #### [facility] [address] [place] [address] Dr. Benito Schwartz GLYCOHEMOGLOBIN A1Con 2022 ADA RECOMMENDATION SEE BELOW Normal [facility] Comment on above: Result Comment: ADA RECOMMENDED LIMIT 4.0 - 6.0 ADA THERAPEUTIC TARGET < 7.0 ACTION SUGGESTED > 7.0 Performed By: #### C BC #### [facility] [address] [place] [address] Dr. Benito Schwartz Glucose [Mass/Vol] 126 mg/dL Normal [facility] Comment on above: Performed By: #### C BC #### [facility] [address] [place] [address] Dr. Benito Schwartz HbA1c (Bld) [Mass fraction] 6.0 % Normal 4.5-6.2 [facility] Comment on above: Performed By: #### C BC #### [facility] [address] [place] [address] Dr. Benito Schwartz MAGNESIUMon 01-02-2023 Magnesium [Mass/Vol] 2.3 mg/dL Normal 1.8-2.4 [facility] Comment on above: Performed By: #### U RTPCR #### [facility] [address] [place] [address] Dr. Benito Schwartz PHOSPHORUSon 01-02-2023 Phosphate [Mass/Vol] 4.1 mg/dL Normal 2.6-4.7 [facility] Comment on above: Performed By: #### U RTPCR #### [facility] [address] [place] [address] Dr. Benito Schwartz PROF CHEM 8 (BAS METB)on Anion gap [Moles/Vol] 11.1 mmol/L Normal [facility] Comment on above: Performed By: #### U RTPCR #### [facility] [address] [place] [address] Dr. Benito Schwartz Calcium [Mass/Vol] 8.9 mg/dL Normal 8.5-10.1 [facility] Comment on above: Performed By: #### U RTPCR #### [facility] [address] [place] [address] Dr. Benito Schwartz Chloride [Moles/Vol] 100 mmol/L Normal 98-107 [facility] Comment on above: Performed By: #### U RTPCR #### [facility] [address] [place] [address] Dr. Benito Schwartz CO2 [Moles/Vol] 33.2 mmol/L Critically high 21.0-32.0 [facility] Comment on above: Performed By: #### U RTPCR #### [facility] [address] [place] [address] Dr. Benito Schwartz Creatinine [Mass/Vol] 2.31 mg/dL Critically high 0.70-1.30 [facility] Comment on above: Performed By: #### U RTPCR #### [facility] [address] [place] [address] Dr. Benito Schwartz EGFR-AF ERITREAN 33 mL/min/1.73m2 Critically low >=60 [facility] Comment on above: Performed By: #### U RTPCR #### [facility] [address] [address] [address] Benito Schwartz EGFR-NON AF ERITREAN 27 mL/min/1.73m2 Critically low >=60 [facility] Comment on above: Performed By: #### U RTPCR #### [facility] [address] [address] [address] Benito Schwartz Glucose [Mass/Vol] 112 mg/dL Critically high 74-106 [facility] Comment on above: Performed By: #### U RTPCR #### [facility] [address] [address] [address] Benito Schwartz Potassium [Moles/Vol] 4.3 mmol/L Normal 3.5-5.1 [facility] Comment on above: Performed By: #### U RTPCR #### [facility] [address] [address] [address] Benito Schwartz Sodium [Moles/Vol] 140 mmol/L Normal 136-145 [facility] Comment on above: Performed By: #### U RTPCR #### [facility] [address] [place] [address] Dr. Benito Schwartz Urea nitrogen [Mass/Vol] 51.0 mg/dL Critically high 7.0-18.0 [facility] Comment on above: Performed By: #### U RTPCR #### [facility] [address] [address] [address] Benito Schwartz Urea nitrogen/Creatinine [Mass ratio] 22.1 mg/mg Normal [facility] Comment on above: Performed By: #### U RTPCR #### [facility] [address] [address] [address] Benito Schwartz TSHon 01-02-2023 TSH 27.692 uIU/mL Critically high 0.358-3.740 [facility] Comment on above: Performed By: #### C BC #### [facility] [address] [address] [address] Benito Schwartz UA RANDOMon 01-02-2023 Bilirubin Ql (U) Negative Normal NEGATIVE [facility] Comment on above: Performed By: #### U RTPCR #### [facility] [address] [place] [address] Dr. Benito Schwartz Clarity (U) CLEAR Normal CLEAR [facility] Comment on above: Performed By: #### U RTPCR #### [facility] [address] [place] [address] Dr. Benito Schwartz Color (U) LT. YELLOW Normal YELLOW [facility] Comment on above: Performed By: #### U RTPCR #### [facility] [address] [place] [address] Dr. Benito Schwartz Glucose Ql (U) Negative Normal NEGATIVE [facility] Comment on above: Performed By: #### U RTPCR #### [facility] [address] [place] [address] Dr. Benito Schwartz Hemoglobin Ql (U) Negative Normal NEGATIVE [facility] Comment on above: Performed By: #### U RTPCR #### [facility] [address] [place] [address] Dr. Benito Schwartz Ketones Ql (U) Negative Normal NEGATIVE [facility] Comment on above: Performed By: #### U RTPCR #### [facility] [address] [place] [address] Dr. Benito Schwartz LEUKOCYTES Negative Normal NEGATIVE [facility] Comment on above: Performed By: #### U RTPCR #### [facility] [address] [place] [address] Dr. Benito Schwartz Nitrite Ql (U) Negative Normal NEGATIVE [facility] Comment on above: Performed By: #### U RTPCR #### [facility] [address] [place] [address] Dr. Benito Schwartz pH (U) 6.0 [pH] Normal 5-9 [facility] Comment on above: Performed By: #### U RTPCR #### [facility] [address] [place] [address] Dr. Benito Schwartz SPEC GRAVITY <=1.005 Abnormal 1.005-<=1.02 5 [facility] Comment on above: Performed By: #### U RTPCR #### [facility] [address] [place] [address] Dr. Benito Schwartz UA PROTEIN Negative Normal NEGATIVE/ TRACE [facility] Comment on above: Performed By: #### U RTPCR #### [facility] [address] [place] [address] Dr. Benito Schwartz Urobilinogen Qn (U) 0.2 {Jagruti'U}/dL Normal 0.2 - 1. 0 [facility] Comment on above: Performed By: #### U RTPCR #### [facility] [address] [place] [address] Dr. Benito Schwartz URINE T PROTEIN CREAT RATIOo n 01-02-2023 Protein (U) [Mass/Vol] 19.1 mg/dL Critically high <=12.0 [facility] Comment on above: Performed By: #### F T4, PSASC #### [facility] [address] [place] [address] Dr. Benito Schwartz UR PROT CREAT RAT 0.75 Normal [facility] Comment on above: Performed By: #### F T4, PSASC #### [facility] [address] [place] [address] Dr. Benito Schwartz URINE CREAT 25.63 mg/dL Normal 20.00-300.00 [facility] Comment on above: Performed By: #### F T4, PSASC #### [facility] [address] [place] [address] Dr. Benito Schwartz VITAMIN D 25 OHon 01-02-2023 VIT D 25-OH 86.8 ng/mL Normal [facility] Comment on above: Performed By: #### U RTPCR #### [facility] [address] [place] [address] Dr. Benito Schwartz VIT D RANGES SEE BELOW Normal [facility] Comment on above: Result Comment: <20 ng/mL Vit D deficient 20 - <30 ng/mL Vit D insufficient 30 - 100 ng/mL Vit D sufficient >100 ng/mL Potential Toxicity Performed By: #### U RTPCR #### [facility] [address] [address] [address] Benito Schwartz T3, TOTAL (TRIIODOTHYRONINE) on 11-17-2022 T3, TOTAL 82 ng/dL Normal 71-180 [facility] Comment on above: Performed By: #### V ITAD #### [facility] [address] [place] [address] Dr. Benito Schwartz FREE T4on 11-16-2022 Free T4 [Mass/Vol] 0.93 ng/dL Normal 0.76-1.46 [facility] Comment on above: Performed By: #### C BC #### [facility] [address] [place] [address] Dr. Benito Schwartz TSHon 11-16-2022 TSH 31.189 uIU/mL Critically high 0.358-3.740 [facility] Comment on above: Performed By: #### F T4, PSASC #### [facility] [address] [place] [address] Dr. Benito Schwartz T3, TOTAL (TRIIODOTHYRONINE) on 10-04-2022 T3, TOTAL 43 ng/dL Critically low 71-180 [facility] Comment on above: Performed By: #### F T4, PSASC #### [facility] [address] [place] [address] Dr. Benito Schwartz FREE T4on 10-03-2022 Free T4 [Mass/Vol] 0.35 ng/dL Critically low 0.76-1.46 [facility] Comment on above: Performed By: #### F T4, PSASC #### [facility] [address] [place] [address] Dr. Benito Schwartz TSHon 10-03-2022 TSH 121.174 uIU/mL Critically high 0.358-3.740 [facility] Comment on above: Performed By: #### F T4, PSASC #### [facility] [address] [place] [address] Dr. Benito Schwartz MAGNESIUMon 09-22-2022 Magnesium [Mass/Vol] 2.5 mg/dL Critically high 1.8-2.4 [facility] Comment on above: Performed By: #### F T4 #### [facility] [address] [address] [address] Benito Schwartz PROF CHEM 8 (BAS METB)on Anion gap [Moles/Vol] 7.3 mmol/L Normal [facility] Comment on above: Performed By: #### F T4 #### [facility] [address] [place] [address] Dr. Benito Schwartz Calcium [Mass/Vol] 8.8 mg/dL Normal 8.5-10.1 [facility] Comment on above: Performed By: #### F T4 #### [facility] [address] [place] [address] Dr. Benito Schwartz Chloride [Moles/Vol] 100 mmol/L Normal 98-107 [facility] Comment on above: Performed By: #### F T4 #### [facility] [address] [place] [address] Dr. Benito Schwartz CO2 [Moles/Vol] 33.7 mmol/L Critically high 21.0-32.0 [facility] Comment on above: Performed By: #### F T4 #### [facility] [address] [place] [address] Dr. Benito Schwartz Creatinine [Mass/Vol] 2.43 mg/dL Critically high 0.70-1.30 [facility] Comment on above: Performed By: #### F T4 #### [facility] [address] [place] [address] Dr. Benito Schwartz EGFR-AF ERITREAN 31 mL/min/1.73m2 Critically low >=60 [facility] Comment on above: Performed By: #### F T4 #### [facility] [address] [place] [address] Dr. Benito Schwartz EGFR-NON AF ERITREAN 26 mL/min/1.73m2 Critically low >=60 [facility] Comment on above: Performed By: #### F T4 #### [facility] [address] [place] [address] Dr. Benito Schwartz Glucose [Mass/Vol] 136 mg/dL Critically high 74-106 [facility] Comment on above: Performed By: #### F T4 #### [facility] [address] [place] [address] Dr. Benito Schwartz Potassium [Moles/Vol] 4.0 mmol/L Normal 3.5-5.1 [facility] Comment on above: Performed By: #### F T4 #### [facility] [address] [place] [address] Dr. Benito Schwartz Sodium [Moles/Vol] 137 mmol/L Normal 136-145 [facility] Comment on above: Performed By: #### F T4 #### [facility] [address] [place] [address] Dr. Benito Schwartz Urea nitrogen [Mass/Vol] 47.0 mg/dL Critically high 7.0-18.0 [facility] Comment on above: Performed By: #### F T4 #### [facility] [address] [place] [address] Dr. Benito Schwartz Urea nitrogen/Creatinine [Mass ratio] 19.3 mg/mg Normal [facility] Comment on above: Performed By: #### F T4 #### [facility] [address] [place] [address] Dr. Benito Schwartz PTH INTACTon 09-10-2022 PTH, Intact 36 pg/mL Normal 15-65 [facility] Comment on above: Performed By: #### F T4, PSASC #### [facility] [address] [place] [address] Dr. Benito Schwartz CBC AUTO DIFFon 09-09-2022 BASO # 0.0 103/ul Normal 0.0-0.1 [facility] Comment on above: Performed By: #### F T4, PSASC #### [facility] [address] [place] [address] Dr. Benito Schwartz Basophils/100 WBC (Bld) 0.5 % Normal 0.2-2.0 [facility] Comment on above: Performed By: #### F T4, PSASC #### [facility] [address] [place] [address] Dr. Benito Schwartz EO # 0.4 103/ul Normal 0.0-0.7 [facility] Comment on above: Performed By: #### F T4, PSASC #### [facility] [address] [place] [address] Dr. Benito Schwartz Eosinophils/100 WBC (Bld) 5.3 % Normal 0.9-7.0 [facility] Comment on above: Performed By: #### F T4, PSASC #### [facility] [address] [place] [address] Dr. Benito Schwartz Erythrocyte distribution width (RBC) [Ratio] 14.3 % Normal 11.0-15.0 [facility] Comment on above: Performed By: #### F T4, PSASC #### [facility] [address] [place] [address] Dr. Benito Schwartz Hematocrit (Bld) [Volume fraction] 36.9 % Critically low 42.0-54.0 [facility] Comment on above: Performed By: #### F T4, PSASC #### [facility] [address] [place] [address] Dr. Benito Schwartz Hemoglobin (Bld) [Mass/Vol] 12.4 g/dL Critically low 14.0-18.0 [facility] Comment on above: Performed By: #### F T4, PSASC #### [facility] [address] [place] [address] Dr. Benito Schwartz IG # 0.04 10e3/ul Critically high 0.00-0.03 [facility] Comment on above: Performed By: #### F T4, PSASC #### [facility] [address] [place] [address] Dr. Benito Schwartz IG % 0.5 % Normal 0.0-0.5 [facility] Comment on above: Performed By: #### F T4, PSASC #### [facility] [address] [place] [address] Dr. Benito Schwartz LYMPH # 1.6 103/ul Normal 1.2-3.8 [facility] Comment on above: Performed By: #### F T4, PSASC #### [facility] [address] [place] [address] Dr. Benito Schwartz Lymphocytes/100 WBC (Bld) 22.2 % Normal 20.5-60.0 [facility] Comment on above: Performed By: #### F T4, PSASC #### [facility] [address] [place] [address] Dr. Benito Schwartz MANUAL DIFF REQ NO Normal [facility] Comment on above: Performed By: #### F T4, PSASC #### [facility] [address] [place] [address] Dr. Benito Schwartz MCH (RBC) [Entitic mass] 31.2 pg Normal 25.9-34.0 [facility] Comment on above: Performed By: #### F T4, PSASC #### [facility] [address] [place] [address] Dr. Benito Schwartz MCHC (RBC) [Mass/Vol] 33.6 g/dL Normal 29.9-35.2 [facility] Comment on above: Performed By: #### F T4, PSASC #### [facility] [address] [place] [address] Dr. Benito Schwartz MCV (RBC) [Entitic vol] 92.7 fL Normal 80.0-94.0 [facility] Comment on above: Performed By: #### F T4, PSASC #### [facility] [address] [place] [address] Dr. Benito Schwartz MONO # 0.5 103/ul Normal 0.3-0.8 [facility] Comment on above: Performed By: #### F T4, PSASC #### [facility] [address] [place] [address] Dr. Benito Schwartz Monocytes/100 WBC (Bld) 6.4 % Normal 1.7-12.0 [facility] Comment on above: Performed By: #### F T4, PSASC #### [facility] [address] [place] [address] Dr. Benito Schwartz NEUT # 4.8 103/ul Normal 1.4-6.5 [facility] Comment on above: Performed By: #### F T4, PSASC #### [facility] [address] [address] [address] Benito Schwartz Neutrophils/100 WBC (Bld) 65.1 % Normal 43.0-75.0 [facility] Comment on above: Performed By: #### F T4, PSASC #### [facility] [address] [place] [address] Dr. Benito Schwartz Platelet mean volume (Bld) [Entitic vol] 8.7 fL Critically low 9.5-13.5 [facility] Comment on above: Performed By: #### F T4, PSASC #### [facility] [address] [place] [address] Dr. Benito Schwartz PLT 206 103/ul Normal 150-450 [facility] Comment on above: Performed By: #### F T4, PSASC #### [facility] [address] [place] [address] Dr. Benito Schwartz RBC 3.98 106/ul Critically low 4.70-6.10 [facility] Comment on above: Performed By: #### F T4, PSASC #### [facility] [address] [place] [address] Dr. Benito Schwartz WBC 7.4 103/ul Normal 4.0-11.0 [facility] Comment on above: Performed By: #### F T4, PSASC #### [facility] [address] [place] [address] Dr. Benito Schwartz MAGNESIUMon 09-09-2022 Magnesium [Mass/Vol] 2.1 mg/dL Normal 1.8-2.4 [facility] Comment on above: Performed By: #### B 12FOL, FETIBC #### [facility] [address] [place] [address] Dr. Benito Schwartz PHOSPHORUSon 09-09-2022 Phosphate [Mass/Vol] 3.2 mg/dL Normal 2.6-4.7 [facility] Comment on above: Performed By: #### B 12FOL, FETIBC #### [facility] [address] [place] [address] Dr. Benito Schwartz PROF CHEM 8 (BAS METB)on Anion gap [Moles/Vol] 10.1 mmol/L Normal [facility] Comment on above: Performed By: #### B 12FOL, FETIBC #### [facility] [address] [address] [address] Benito Schwartz Calcium [Mass/Vol] 9.3 mg/dL Normal 8.5-10.1 [facility] Comment on above: Performed By: #### B 12FOL, FETIBC #### [facility] [address] [place] [address] Dr. Benito Schwartz Chloride [Moles/Vol] 99 mmol/L Normal 98-107 [facility] Comment on above: Performed By: #### B 12FOL, FETIBC #### [facility] [address] [place] [address] Dr. Benito Schwartz CO2 [Moles/Vol] 32.4 mmol/L Critically high 21.0-32.0 [facility] Comment on above: Performed By: #### B 12FOL, FETIBC #### [facility] [address] [address] [address] Benito Schwartz Creatinine [Mass/Vol] 2.77 mg/dL Critically high 0.70-1.30 [facility] Comment on above: Performed By: #### B 12FOL, FETIBC #### [facility] [address] [address] [address] Benito Schwartz EGFR-AF ERITREAN 27 mL/min/1.73m2 Critically low >=60 [facility] Comment on above: Performed By: #### B 12FOL, FETIBC #### [facility] [address] [place] [address] Dr. Benito Schwartz EGFR-NON AF ERITREAN 22 mL/min/1.73m2 Critically low >=60 [facility] Comment on above: Performed By: #### B 12FOL, FETIBC #### [facility] [address] [place] [address] Dr. Benito Schwartz Glucose [Mass/Vol] 166 mg/dL Critically high 74-106 [facility] Comment on above: Performed By: #### B 12FOL, FETIBC #### [facility] [address] [address] [address] Benito Schwartz Potassium [Moles/Vol] 3.5 mmol/L Normal 3.5-5.1 [facility] Comment on above: Performed By: #### B 12FOL, FETIBC #### [facility] [address] [address] [address] Benito Schwartz Sodium [Moles/Vol] 138 mmol/L Normal 136-145 [facility] Comment on above: Performed By: #### B 12FOL, FETIBC #### [facility] [address] [place] [address] Dr. Benito Schwartz Urea nitrogen [Mass/Vol] 50.0 mg/dL Critically high 7.0-18.0 [facility] Comment on above: Performed By: #### B 12FOL, FETIBC #### [facility] [address] [place] [address] Dr. Benito Schwartz Urea nitrogen/Creatinine [Mass ratio] 18.1 mg/mg Normal [facility] Comment on above: Performed By: #### B 12FOL, FETIBC #### [facility] [address] [place] [address] Dr. Benito Schwartz UA RANDOMon 09-09-2022 Bilirubin Ql (U) Negative Normal NEGATIVE [facility] Comment on above: Performed By: #### V ITAD #### [facility] [address] [place] [address] Dr. Benito Schwartz Clarity (U) CLEAR Normal CLEAR [facility] Comment on above: Performed By: #### V ITAD #### [facility] [address] [place] [address] Dr. Benito Schwartz Color (U) LT. YELLOW Normal YELLOW [facility] Comment on above: Performed By: #### V ITAD #### [facility] [address] [place] [address] Dr. Benito Schwartz Glucose Ql (U) Negative Normal NEGATIVE [facility] Comment on above: Performed By: #### V ITAD #### [facility] [address] [address] [address] Benito Schwartz Hemoglobin Ql (U) Negative Normal NEGATIVE [facility] Comment on above: Performed By: #### V ITAD #### [facility] [address] [place] [address] Dr. Benito Schwartz Ketones Ql (U) Negative Normal NEGATIVE [facility] Comment on above: Performed By: #### V ITAD #### [facility] [address] [place] [address] Dr. Benito Schwartz LEUKOCYTES Negative Normal NEGATIVE [facility] Comment on above: Performed By: #### V ITAD #### [facility] [address] [place] [address] Dr. Benito Schwartz Nitrite Ql (U) Negative Normal NEGATIVE [facility] Comment on above: Performed By: #### V ITAD #### [facility] [address] [place] [address] Dr. Benito Schwartz pH (U) 5.5 [pH] Normal 5-9 [facility] Comment on above: Performed By: #### V ITAD #### [facility] [address] [place] [address] Dr. Benito Schwartz SPEC GRAVITY 1.010 Normal 1.005-<=1.02 5 [facility] Comment on above: Performed By: #### V ITAD #### [facility] [address] [place] [address] Dr. Benito Schwartz UA PROTEIN Negative Normal NEGATIVE/ TRACE [facility] Comment on above: Performed By: #### V ITAD #### [facility] [address] [place] [address] Dr. Benito Schwartz Urobilinogen Qn (U) 0.2 {Jagruti'U}/dL Normal 0.2 - 1. 0 [facility] Comment on above: Performed By: #### V ITAD #### [facility] [address] [place] [address] Dr. Benito Schwartz URINE T PROTEIN CREAT RATIOo n 09-09-2022 Protein (U) [Mass/Vol] 16.4 mg/dL Critically high <=12.0 [facility] Comment on above: Performed By: #### T KRISTOPHER FT3, BMP #### [facility] [address] [address] [address] Benito Schwartz UR PROT CREAT RAT 0.79 Normal [facility] Comment on above: Performed By: #### T KRISTOPHER FT3, BMP #### [facility] [address] [address] [address] Benito Schwartz URINE CREAT 20.88 mg/dL Normal 20.00-300.00 [facility] Comment on above: Performed By: #### T KRISTOPHER FT3, BMP #### [facility] [address] [place] [address] Dr. Benito Schwartz VITAMIN D 25 OHon 09-09-2022 VIT D 25-OH 83.7 ng/mL Normal [facility] Comment on above: Performed By: #### V ITAD #### [facility] [address] [address] [address] Benito Schwartz VIT D RANGES SEE BELOW Normal [facility] Comment on above: Result Comment: <20 ng/mL Vit D deficient 20 - <30 ng/mL Vit D insufficient 30 - 100 ng/mL Vit D sufficient >100 ng/mL Potential Toxicity Performed By: #### V ITAD #### [facility] [address] [place] [address] Dr. Benito Schwartz Albumin [Mass/volume] in Ser um or PlasmaOrdered By: Leigha Nelson on 08-31-2022 Albumin [Mass/Vol] 3.9 g/dL 3.2-5.5 [facility] Basophils Auto (Bld) [#/Vol] Ordered By: Leigha Nelson on 08-31-2022 Basophils (Bld) [#/Vol] 0.0 10*3/uL 0.0-0.2 [facility] Basophils/100 WBC Auto (Bld) Ordered By: Leigha Nelson on 08-31-2022 Basophils/100 WBC (Bld) 0.5 % . [facility] Creatinine and Glomerular fi ltration rate.predicted panel (S/P/Bld)Ordered By: Leigha Nelson on 08-31-2022 Creatinine [Mass/Vol] 2.63 mg/dL 0.64-1.27 [facility] Eosinophils Auto (Bld) [#/Vo l]Ordered By: Leigha Nelson on 08-31-2022 Eosinophils (Bld) [#/Vol] 0.3 10*3/uL 0.0-0.45 [facility] Eosinophils/100 WBC Auto (Bl d)Ordered By: Leigha Nelson on 08-31-2022 Eosinophils/100 WBC (Bld) 4.3 % . [facility] Erythrocyte distribution wid th Auto (RBC) [Ratio]Ordered By: Leigha Nelson on 08-31-2022 Erythrocyte distribution width (RBC) [Ratio] 15.7 % 12.0-14.8 [facility] Estimated glomerular filtrat ion rate (GFR) non- AmericanOrdered By: Leigha Nelson on 08-31-2022 GFR/1.73 sq M.predicted among non-blacks MDRD (S/P/Bld) [Vol rate/Area] 24 mL/Min [facility] Globulin Calc (S) [Mass/Vol] Ordered By: Leigha Nelson on 08-31-2022 Globulin (S) [Mass/Vol] 2.8 g/dL [facility] Hematocrit Auto (Bld) [Volum e fraction]Ordered By: eLigha Nelson on 08-31-2022 Hematocrit (Bld) [Volume fraction] 37.2 % 38.8-50.0 [facility] Hemoglobin [Mass/volume] in BloodOrdered By: Leigha Nelson on 08-31-2022 Hemoglobin (Bld) [Mass/Vol] 12.4 g/dL 13.0-17.0 [facility] - Hematology and Cell countsOrdered By: Leigha Nelson on 08-31-2022 Nucleated RBC/100 WBC (Bld) [Ratio] 0.1 % 0-0.5 [facility] Leukocytes [#/volume] in Blo od by Automated countOrdered By: Leigha Nelson on 08-31-2022 WBC (Bld) [#/Vol] 6.7 10*3/uL 4.5-11.0 [facility] Lymphocytes Auto (Bld) [#/Vo l]Ordered By: Leigha Nelson on 08-31-2022 Lymphocytes (Bld) [#/Vol] 1.2 10*3/uL 1.00-4.8 [facility] Lymphocytes/100 WBC Auto (Bl d)Ordered By: Leigha Nelson on 08-31-2022 Lymphocytes/100 WBC (Bld) 18.5 % . [facility] MCH Auto (RBC) [Entitic mass ]Ordered By: Leigha Nelson on 08-31-2022 MCH (RBC) [Entitic mass] 31.0 pg 27.5-35.2 [facility] MCHC Auto (RBC) [Mass/Vol]Or dered By: Leigha Nelson on 08-31-2022 MCHC (RBC) [Mass/Vol] 33.4 g/dL 32.5-35.6 [facility] MCV Auto (RBC) [Entitic vol] Ordered By: Leigha Nelson on 08-31-2022 MCV (RBC) [Entitic vol] 92.9 fL 83.5-101 [facility] Monocytes Auto (Bld) [#/Vol] Ordered By: Leigha Nelson on 08-31-2022 Monocytes (Bld) [#/Vol] 0.6 10*3/uL 0.0-0.8 [facility] Monocytes/100 WBC Auto (Bld) Ordered By: Leigha Nelson on 08-31-2022 Monocytes/100 WBC (Bld) 8.4 % . [facility] Neutrophils Auto (Bld) [#/Vo l]Ordered By: Leigha Nelson on 08-31-2022 Neutrophils (Bld) [#/Vol] 4.6 10*3/uL 1.8-7.7 [facility] Neutrophils/100 WBC Auto (Bl d)Ordered By: Leigha Nelson on 08-31-2022 Neutrophils/100 WBC (Bld) 68.3 % . [facility] No Panel InformationOrdered By: Leigha Nelson on 08-31-2022 Estimated GFR () 29 mL/Min [facility] Comment on above: GFR estimated refere nce range: According to KDOQI guidelines, <60 ml/min/1.73m2 is sufficient to diagnose a patient with chronic kidney disease. Pharmacy Creatinine Clearance (Chem 26.08 [facility] Platelet mean volume Auto (B ld) [Entitic vol]Ordered By: Leigha Nelson on 08-31-2022 Platelet mean volume (Bld) [Entitic vol] 6.8 fL 6.6-10.1 [facility] Platelets Auto (Bld) [#/Vol] Ordered By: Leigha Nelson on 08-31-2022 Platelets (Bld) [#/Vol] 238 10*3/uL 150-450 [facility] Protein [Mass/volume] in Ser um or PlasmaOrdered By: Leigha Nelson on 08-31-2022 Protein [Mass/Vol] 6.7 g/dL 6.1-7.9 [facility] RBC Auto (Bld) [#/Vol]Ordere d By: Leigha Nelson on 08-31-2022 RBC (Bld) [#/Vol] 4.00 10*6/uL 3.90-5.60 [facility] Serum or plasma alanine paige otransferase measurement without P-5'-P (enzymatic activiOrdered By: Leigha Nelson on 08-31-2022 ALT No additional P-5'-P [Catalytic activity/Vol] 26 U/L 10-60 [facility] Serum or plasma albumin/glob ulin mass ratioOrdered By: Leigha Nelson on 08-31-2022 Albumin/Globulin [Mass ratio] 1.4 {ratio} [facility] Serum or plasma alkaline mega sphatase measurement (enzymatic activity/volume)Ordered By: Leigha Nelson on 08-31-2022 ALP [Catalytic activity/Vol] 112 U/L 32-92 [facility] Serum or plasma anion gap de terminationOrdered By: Leigha Nelson on 08-31-2022 Anion gap [Moles/Vol] 9.4 mmol/L 6.0-15.0 [facility] Serum or plasma aspartate am inotransferase measurement (enzymatic activity/volume)Ordered By: Leigha Nelson on 08-31-2022 AST [Catalytic activity/Vol] 32 U/L 10-42 [facility] Serum or plasma calcium darshan urement (mass/volume)Ordered By: Leigha Nelson on 08-31-2022 Calcium [Mass/Vol] 8.9 mg/dL 8.2-10.2 [facility] Serum or plasma carcinoembry onic antigen measurement (mass/volume)Ordered By: Leigha Nelson on 08-31-2022 Carcinoembryonic Ag [Mass/Vol] 2.5 ng/mL 0.0-3.0 [facility] Serum or plasma chloride ernestine surement (moles/volume)Ordered By: Leigha Nelson on 08-31-2022 Chloride [Moles/Vol] 98 mmol/L 95-114 [facility] Serum or plasma glucose darshan urement (mass/volume)Ordered By: Leigha Nelson on 08-31-2022 Glucose [Mass/Vol] 104 mg/dL 70-100 [facility] Comment on above: ADA recommended refe rence rangeRandom Glucose Reference Range is dependent on time and content of last meal. Glucose of more than 200 mg/dL in a nonstressed, ambulatory subject supports the diagnosis of Diabetes Mellitus. Serum or plasma potassium me asurement (moles/volume)Ordered By: Leigha Nelson on 08-31-2022 Potassium [Moles/Vol] 3.4 mmol/L 3.5-5.1 [facility] Serum or plasma sodium measu rement (moles/volume)Ordered By: Leigha Nelson on 08-31-2022 Sodium [Moles/Vol] 135 mmol/L 136-146 [facility] Serum or plasma total biliru bin measurement (mass/volume)Ordered By: Leigha Nelson on 08-31-2022 Bilirubin [Mass/Vol] 0.8 mg/dL 0.3-1.2 [facility] Serum or plasma total carbon dioxide measurement (moles/volume)Ordered By: Leigha Nelson on 08-31-2022 CO2 [Moles/Vol] 31.0 mmol/L 22.0-30.0 [facility] Serum or plasma urea nitroge n measurement (mass/volume)Ordered By: Leigha Nelson on 08-31-2022 Urea nitrogen [Mass/Vol] 40 mg/dL 07-08 [facility] T3, TOTAL (TRIIODOTHYRONINE) on 08-31-2022 T3, TOTAL 42 ng/dL Critically low 71-180 [facility] Comment on above: Performed By: #### F T4, PSASC #### [facility] [address] [address] [address] Benito Schwartz FREE T4on 08-30-2022 Free T4 [Mass/Vol] 0.11 ng/dL Critically low 0.76-1.46 [facility] Comment on above: Performed By: #### V ITAD #### [facility] [address] [address] [address] Benito Schwartz TSHon 08-30-2022 TSH 121.477 uIU/mL Critically high 0.358-3.740 [facility] Comment on above: Performed By: #### F T4 #### [facility] [address] [address] [address] Benito Schwartz Glucose Glucometer (BldC) [M ass/Vol]Ordered By: Ramesh Rascon on 07-21-2022 Glucose [Mass/Vol] 105 mg/dL [facility] Comment on above: Random Glucose Refer ence Range is dependent on time and content of last meal. Glucose of more than 200 mg/dL in a nonstressed, ambulatory subject supports the diagnosis of Diabetes Mellitus. T3, TOTAL (TRIIODOTHYRONINE) on 07-21-2022 T3, TOTAL 56 ng/dL Critically low 71-180 [facility] Comment on above: Performed By: #### F T4, PSASC #### [facility] [address] [address] [address] Benito Schwartz FREE T4on 07-20-2022 Free T4 [Mass/Vol] 0.48 ng/dL Critically low 0.76-1.46 [facility] Comment on above: Performed By: #### V ITAD #### [facility] [address] [address] [address] Benito Schwartz TSHon 07-20-2022 TSH 67.173 uIU/mL Critically high 0.358-3.740 [facility] Comment on above: Performed By: #### U RTPCR #### [facility] [address] [address] [address] Benito Schwartz COVID-19 SOFIAOrdered By: Lucia Rascon on 07-19-2022 SARS-CoV+SARS-CoV-2 (COVID-19) Ag IA.rapid Ql (Resp) Negative Negative [facility] Comment on above: This is a duplicate Lindsay SARS Antigen (MADHU) result to be used for statistical tracking purpose only. No Panel InformationOrdered By: Ramesh Rascon on 07-19-2022 SARS Antigen (LFIA) [facility] Albumin [Mass/volume] in Ser um or PlasmaOrdered By: Chivo Keller on 05-31-2022 Albumin [Mass/Vol] 3.9 g/dL 3.2-5.5 [facility] Basophils Auto (Bld) [#/Vol] Ordered By: Chivo Keller on 05-31-2022 Basophils (Bld) [#/Vol] 0.1 10*3/uL 0.0-0.2 [facility] Basophils/100 WBC Auto (Bld) Ordered By: Chivo Keller on 05-31-2022 Basophils/100 WBC (Bld) 0.8 % . [facility] Blood hemoglobin measurement (mass/volume)Ordered By: Chivo Keller on 05-31-2022 Hemoglobin (Bld) [Mass/Vol] 11.1 g/dL 13.0-17.0 [facility] Blood leukocytes automated c ount (number/volume)Ordered By: Chivo Keller on 05-31-2022 WBC (Bld) [#/Vol] 8.8 10*3/uL 4.5-11.[address] [facility] [address] biopsyOrdered By: Danuta Kelly on 05-31-2022 Transferrin [Mass/Vol] 210 mg/dL 180-380 [facility] Creatinine (Bld) [Mass/Vol]O rdered By: Nikunj Shultz on 05-31-2022 Creatinine [Mass/Vol] 2.4 mg/dL High 0.6-1.3 [facility] Comment on above: ER/ESD physician is [...] on 05-31-2022 Creatinine [Mass/Vol] 2.23 mg/dL 0.64-1.27 [facility] Eosinophils Auto (Bld) [#/Vo l]Ordered By: Chivo Keller on 05-31-2022 Eosinophils (Bld) [#/Vol] 0.4 10*3/uL 0.0-0.45 [facility] Eosinophils/100 WBC Auto (Bl d)Ordered By: Chivo Keller on 05-31-2022 Eosinophils/100 WBC (Bld) 4.1 % . [facility] Erythrocyte distribution wid th Auto (RBC) [Ratio]Ordered By: Chivo Keller on 05-31-2022 Erythrocyte distribution width (RBC) [Ratio] 16.4 % 12.0-14.8 [facility] Estimated glomerular filtrat ion rate (GFR) non- AmericanOrdered By: Chivo Keller on 05-31-2022 GFR/1.73 sq M.predicted among non-blacks MDRD (S/P/Bld) [Vol rate/Area] 28 mL/Min [facility] Ferritin [Mass/volume] in Se rum or PlasmaOrdered By: Danuta Kelly on 05-31-2022 Ferritin [Mass/Vol] 96.9 ng/mL 23.9-336.2 [facility] Folate [Mass/volume] in Seru m or PlasmaOrdered By: Danuta Kelly on 05-31-2022 Folate [Mass/Vol] 17.7 ng/mL >5.9 [facility] Comment on above: Folate reference ran ge: >5.9 ng/ml The WHO technical consultation on folate and vitamin b12 deficiencies has determined that folate concentrations less than 4 ng/ml are considered deficient. Folate reference ran ge: >5.9 ng/mlThe WHO technical consultation on folate and vitamin [id number] has determined that folate concentrations lessthan 4 ng/ml are considered deficient. Globulin Calc (S) [Mass/Vol] Ordered By: Chivo Keller on 05-31-2022 Globulin (S) [Mass/Vol] 3.4 g/dL [facility] Hematocrit Auto (Bld) [Volum e fraction]Ordered By: Chivo Keller on 05-31-2022 Hematocrit (Bld) [Volume fraction] 33.6 % 38.8-50.0 [facility] Iron [Mass/volume] in Serum or PlasmaOrdered By: Danuta Kelly on 05-31-2022 Iron [Mass/Vol] 42 ug/dL 40-160 [facility] Iron binding capacity [Mass/ volume] in Serum or PlasmaOrdered By: Danuta Kelly on 05-31-2022 Iron binding capacity [Mass/Vol] 294 ug/dL 255-450 [facility] Iron saturation [Mass Fracti on] in Serum or PlasmaOrdered By: Danuta Kelly on 05-31-2022 Iron saturation [Mass fraction] 14.0 % 20-50 [facility] - Chemistry and C hemistry - challengeOrdered By: Danuta Kelly on 05-31-2022 Cobalamin (Vitamin B12) [Mass/Vol] 463 pg/mL 180-914 [facility] - Hematology and Cell countsOrdered By: Chivo Keller on 05-31-2022 Nucleated RBC/100 WBC (Bld) [Ratio] 0.0 % 0-0.5 [facility] Lymphocytes Auto (Bld) [#/Vo l]Ordered By: Chivo Keller on 05-31-2022 Lymphocytes (Bld) [#/Vol] 1.5 10*3/uL 1.00-4.8 [facility] Lymphocytes/100 WBC Auto (Bl d)Ordered By: Chivo Keller on 05-31-2022 Lymphocytes/100 WBC (Bld) 17.2 % . [facility] MCH Auto (RBC) [Entitic mass ]Ordered By: Chivo Keller on 05-31-2022 MCH (RBC) [Entitic mass] 29.2 pg 27.5-35.2 [facility] MCHC Auto (RBC) [Mass/Vol]Or dered By: Chivo Keller on 05-31-2022 MCHC (RBC) [Mass/Vol] 33.1 g/dL 32.5-35.6 [facility] MCV Auto (RBC) [Entitic vol] Ordered By: Chivo Keller on 05-31-2022 MCV (RBC) [Entitic vol] 88.2 fL 83.5-101 [facility] Monocytes Auto (Bld) [#/Vol] Ordered By: Chivo Keller on 05-31-2022 Monocytes (Bld) [#/Vol] 0.7 10*3/uL 0.0-0.8 [facility] Monocytes/100 WBC Auto (Bld) Ordered By: Chivo Keller on 05-31-2022 Monocytes/100 WBC (Bld) 8.0 % . [facility] Neutrophils Auto (Bld) [#/Vo l]Ordered By: Chivo Keller on 05-31-2022 Neutrophils (Bld) [#/Vol] 6.2 10*3/uL 1.8-7.7 [facility] Neutrophils/100 WBC Auto (Bl d)Ordered By: Chivo Keller on 05-31-2022 Neutrophils/100 WBC (Bld) 69.9 % . [facility] No Panel InformationOrdered By: Nikunj Shultz on 05-31-2022 POC Estimated GFR 32 [facility] Comment on above: GFR estimated refere nce range: According to KDOQI guidelines, <60 ml/min/1.73m2 is sufficient to diagnose a patient with chronic kidney disease. POC Estimated GFR Non- Amer 26 [facility] No Panel InformationOrdered By: Chivo Keller on 05-31-2022 Estimated GFR () 34 mL/Min [facility] Comment on above: GFR estimated refere nce range: According to KDOQI guidelines, <60 ml/min/1.73m2 is sufficient to diagnose a patient with chronic kidney disease. Pharmacy Creatinine Clearance (Chem 31.14 [facility] Platelet mean volume Auto (B ld) [Entitic vol]Ordered By: Chivo Keller on 05-31-2022 Platelet mean volume (Bld) [Entitic vol] 7.0 fL 6.6-10.1 [facility] Platelets Auto (Bld) [#/Vol] Ordered By: Chivo Keller on 05-31-2022 Platelets (Bld) [#/Vol] 308 10*3/uL 150-450 [facility] Protein [Mass/volume] in Ser um or PlasmaOrdered By: Chivo Keller on 05-31-2022 Protein [Mass/Vol] 7.3 g/dL 6.1-7.9 [facility] RBC Auto (Bld) [#/Vol]Ordere d By: Chivo Keller on 05-31-2022 RBC (Bld) [#/Vol] 3.81 10*6/uL 3.90-5.60 [facility] Serum or plasma alanine paige otransferase measurement without P-5'-P (enzymatic activiOrdered By: Chivo Keller on 05-31-2022 ALT No additional P-5'-P [Catalytic activity/Vol] 17 U/L 10-60 [facility] Serum or plasma albumin/glob ulin mass ratioOrdered By: Chivo Keller on 05-31-2022 Albumin/Globulin [Mass ratio] 1.1 {ratio} [facility] Serum or plasma alkaline mega sphatase measurement (enzymatic activity/volume)Ordered By: Chivo Keller on 05-31-2022 ALP [Catalytic activity/Vol] 140 U/L 32-92 [facility] Serum or plasma aspartate am inotransferase measurement (enzymatic activity/volume)Ordered By: Chivo Keller on 05-31-2022 AST [Catalytic activity/Vol] 22 U/L 10-42 [facility] Serum or plasma calcium darshan urement (mass/volume)Ordered By: Chivo Keller on 05-31-2022 Calcium [Mass/Vol] 9.5 mg/dL 8.2-10.2 [facility] Serum or plasma carcinoembry onic antigen measurement (mass/volume)Ordered By: Chivo Keller on 05-31-2022 Carcinoembryonic Ag [Mass/Vol] 1.8 ng/mL 0.0-3.0 [facility] Serum or plasma chloride ernestine surement (moles/volume)Ordered By: Chivo Keller on 05-31-2022 Chloride [Moles/Vol] 101 mmol/L 95-114 [facility] Serum or plasma glucose darshan urement (mass/volume)Ordered By: Chivo Keller on 05-31-2022 Glucose [Mass/Vol] 108 mg/dL 70-100 [facility] Comment on above: ADA recommended refe [...] on 05-31-2022 Potassium [Moles/Vol] 4.4 mmol/L 3.5-5.1 [facility] Serum or plasma sodium measu rement (moles/volume)Ordered By: Chivo Keller on 05-31-2022 Sodium [Moles/Vol] 140 mmol/L 136-146 [facility] Serum or plasma total biliru bin measurement (mass/volume)Ordered By: Chivo Keller on 05-31-2022 Bilirubin [Mass/Vol] 0.5 mg/dL 0.3-1.2 [facility] Serum or plasma total carbon dioxide measurement (moles/volume)Ordered By: Chivo Keller on 05-31-2022 CO2 [Moles/Vol] 29.7 mmol/L 22.0-30.0 [facility] Serum or plasma urea nitroge n measurement (mass/volume)Ordered By: Chivo Keller on 05-31-2022 Urea nitrogen [Mass/Vol] 42 mg/dL 9-23 [facility] CBC W/DIFFon 05-26-2022 ABS IMM GRANS 0.1 10*3/uL Normal 0.0-0.2 [facility] Comment on above: Performed By: #### 5 0103 #### [facility] [address] [place] [address], [facility] ABS NEUTROPHILS 6.4 10*3/uL Normal 1.6-7.6 [facility] Comment on above: Performed By: #### 5 0103 #### [facility] [address] [place] [address], [facility] Basophils (Bld) [#/Vol] 0.0 10*3/uL Normal 0.0-0.2 [facility] Comment on above: Performed By: #### 5 0103 #### [facility] [address] [facility] [address], [facility] Basophils/100 WBC (Bld) 0.4 % Normal 0.0-1.0 [facility] Comment on above: Performed By: #### 5 0103 #### [facility] [address] [place] [address], [facility] Eosinophils (Bld) [#/Vol] 0.4 10*3/uL Normal 0.0-0.5 [facility] Comment on above: Performed By: #### 5 0103 #### [facility] [address] [facility] [facility] [place] [address], [facility] Eosinophils/100 WBC (Bld) 4.3 % Normal 0.0-6.0 [facility] Comment on above: Performed By: #### 5 0103 #### [facility] [address] [facility] [address], [facility] Erythrocyte distribution width (RBC) [Ratio] 15.9 % High 11.5-15.0 [facility] Comment on above: Performed By: #### 5 0103 #### [facility] [address] Hematocrit (Bld) [Volume fraction] 31.6 % Low 39.0-50.0 [facility] Comment on above: Performed By: #### 5 0103 #### [facility] [address] [place] [address], [facility] Hemoglobin (Bld) [Mass/Vol] 10.0 g/dL Low 13.0-17.0 [facility] Comment on above: Performed By: #### 5 0103 #### [facility] [address] [place] [address], [facility] IMMATURE GRANS 0.8 % Normal 0.0-1.0 [facility] Comment on above: Performed By: #### 5 3 #### [facility] [address] Lymphocytes (Bld) [#/Vol] 1.6 10*3/uL Normal 1.2-4.0 [facility] Comment on above: Performed By: #### 5 3 #### [facility] [address] Lymphocytes/100 WBC (Bld) 16.8 % Low 20.0-45.0 [facility] Comment on above: Performed By: #### 5 3 #### [facility] [address] MCH (RBC) [Entitic mass] 28.7 pg Normal 27.0-33.0 [facility] Comment on above: Performed By: #### 5 0103 #### [facility] [address] [place] [address], [facility] MCHC (RBC) [Mass/Vol] 31.6 g/dL Low 32.0-35.0 [facility] Comment on above: Performed By: #### 5 3 #### [facility] [address] [place] [address], [facility] MCV (RBC) [Entitic vol] 90.5 fL Normal 82.0-98.0 T [facility] Comment on above: Performed By: #### 5 0103 #### [facility] [address] [place] [id number], [facility] Monocytes (Bld) [#/Vol] 0.8 10*3/uL Normal 0.1-1.0 [facility] Comment on above: Performed By: #### 5 0103 #### [facility] [address] [place] [address], [facility] MONOS 9.0 % Normal 5.0-12.0 [facility] Comment on above: Performed By: #### 5 3 #### [facility] [address] [place] [address], [facility] Neutrophils/100 WBC (Bld) 68.7 % Normal 40.0-72.0 [facility] Comment on above: Performed By: #### 5 102 #### [facility] [address] [place] [address], [facility] Nucleated RBC/100 WBC (Bld) [Ratio] 0 % Normal 0-0 [facility] Comment on above: Performed By: #### 5 102 #### [facility] [address] [place] [id number], [facility] PLAT CNT 292 10*3/uL Normal 150-400 [facility] Comment on above: Performed By: #### 5 3 #### [facility] [address] [place] [id number], [facility] RBC (Bld) [#/Vol] 3.49 10*6/uL Low 4.20-5.70 [facility] Comment on above: Performed By: #### 102 #### [facility] [address] [place] [id number], [facility] WBC (Bld) [#/Vol] 9.29 10*3/uL Normal 4.00-10.60 [facility] Comment on above: Performed By: #### 5 0103 #### [facility] [address] [place] [address], [place] IMMUNOGLOBULIN Jovany 2 [place] Normal [facility] Comment on above: Result Comment: Test Performed by [facility] [place] [address] - Released 05/27/2022 12:45 IMMUNOGLOBULIN E 308 IU/mL High <101 [facility] THYROID-STIMULATING IMMUNOGL OBULINon 05-14-2022 Thyroid Sim Immunoglobulin <0.10 Normal 0.00-0.55 [facility] Comment on above: Performed By: #### C BC #### [facility] [address] [address] [address] Benito Schwartz THYROTROPIN RECEPTOR ABon Thyrotropin Receptor Ab, Serum <1.10 Normal 0.00-1.75 [facility] Comment on above: Performed By: #### C BC #### [facility] [address] [address] [address] Benito Schwartz PTH INTACTon 05-13-2022 PTH, Intact 18 pg/mL Normal 15-65 [facility] Comment on above: Performed By: #### C BC #### [facility] [address] [address] [address] Benito Schwartz T3, TOTAL (TRIIODOTHYRONINE) on 05-13-2022 T3, TOTAL 80 ng/dL Normal 71-180 [facility] Comment on above: Performed By: #### U RTPCR #### [facility] [address] [address] [address] Benito Schwartz VIT D 25-OH LABCORPon 2021 Vitamin D, 25-Hydroxy 84.3 ng/mL Normal 30.0-100.0 [facility] Comment on above: Result Comment: Randi min D deficiency has been defined by the [employer] and an Endocrine Society practice guideline as a level of serum 25-OH vitamin D less than 20 ng/mL (1,2). The Endocrine Society went on to further define vitamin D insufficiency as a level between 21 and 29 ng/mL (2). 1. IOM ([employer]). 2010. Dietary reference intakes for calcium and D. [place]: The National Academies Press. 2. Annamarie MF, Milena LE, Jamin BURGESS, et al. Evaluation, treatment, and prevention of vitamin D deficiency: an Endocrine Society clinical practice guideline. JCEM. 2010; 96(7):1911-30. Performed By: #### U RTPCR #### [facility] [address] [place] [address] Dr. Benito Schwartz CBC AUTO DIFFon 05-12-2022 BASO # 0.0 103/ul Normal 0.0-0.1 [facility] Comment on above: Performed By: #### C BC #### [facility] [address] [place] [address] Dr. Benito Schwartz Basophils/100 WBC (Bld) 0.2 % Normal 0.2-2.0 [facility] Comment on above: Performed By: #### C BC #### [facility] [address] [place] [address] Dr. Benito Schwartz EO # 0.4 103/ul Normal 0.0-0.7 [facility] Comment on above: Performed By: #### C BC #### [facility] [address] [place] [address] Dr. Benito Schwartz Eosinophils/100 WBC (Bld) 4.4 % Normal 0.9-7.0 [facility] Comment on above: Performed By: #### C BC #### [facility] [address] [place] [address] Dr. Benito Schwartz Erythrocyte distribution width (RBC) [Ratio] 15.0 % Normal 11.0-15.0 [facility] Comment on above: Performed By: #### C BC #### [facility] [address] [place] [address] Dr. Benito Schwartz Hematocrit (Bld) [Volume fraction] 29.8 % Critically low 42.0-54.0 [facility] Comment on above: Performed By: #### C BC #### [facility] [address] [address] [address] Benito Schwartz Hemoglobin (Bld) [Mass/Vol] 9.7 g/dL Critically low 14.0-18.0 [facility] Comment on above: Performed By: #### C BC #### [facility] [address] [place] [address] Dr. Benito Schwartz IG # 0.06 10e3/ul Critically high 0.00-0.03 [facility] Comment on above: Performed By: #### C BC #### [facility] [address] [place] [address] Dr. Benito Schwartz IG % 0.7 % Critically high 0.0-0.5 [facility] Comment on above: Performed By: #### C BC #### [facility] [address] [place] [address] Dr. Benito Schwartz LYMPH # 1.9 103/ul Normal 1.2-3.8 [facility] Comment on above: Performed By: #### C BC #### [facility] [address] [place] [address] Dr. Benito Schwartz Lymphocytes/100 WBC (Bld) 21.1 % Normal 20.5-60.0 [facility] Comment on above: Performed By: #### C BC #### [facility] [address] [place] [address] Dr. Benito Schwartz MANUAL DIFF REQ NO Normal [facility] Comment on above: Performed By: #### C BC #### [facility] [address] [place] [address] Dr. Benito Schwartz MCH (RBC) [Entitic mass] 29.0 pg Normal 25.9-34.0 [facility] Comment on above: Performed By: #### C BC #### [facility] [address] [place] [address] Dr. Benito Schwartz MCHC (RBC) [Mass/Vol] 32.6 g/dL Normal 29.9-35.2 [facility] Comment on above: Performed By: #### C BC #### [facility] [address] [address] [address] Benito Schwartz MCV (RBC) [Entitic vol] 89.0 fL Normal 80.0-94.0 [facility] Comment on above: Performed By: #### C BC #### [facility] [address] [address] [address] Benito Schwartz MONO # 0.9 103/ul Critically high 0.3-0.8 [facility] Comment on above: Performed By: #### C BC #### [facility] [address] [address] [address] Benito Schwartz Monocytes/100 WBC (Bld) 9.9 % Normal 1.7-12.0 [facility] Comment on above: Performed By: #### C BC #### [facility] [address] [place] [address] Dr. Benito Schwartz NEUT # 5.8 103/ul Normal 1.4-6.5 [facility] Comment on above: Performed By: #### C BC #### [facility] [address] [place] [address] Dr. Benito Schwartz Neutrophils/100 WBC (Bld) 63.7 % Normal 43.0-75.0 [facility] Comment on above: Performed By: #### C BC #### [facility] [address] [place] [address] Dr. Benito Schwartz Platelet mean volume (Bld) [Entitic vol] 8.7 fL Critically low 9.5-13.5 [facility] Comment on above: Performed By: #### C BC #### [facility] [address] [place] [address] Dr. Benito Schwartz PLT 253 103/ul Normal 150-450 [facility] Comment on above: Performed By: #### C BC #### [facility] [address] [place] [address] Dr. Benito Schwartz RBC 3.35 106/ul Critically low 4.70-6.10 [facility] Comment on above: Performed By: #### C BC #### [facility] [address] [place] [address] Dr. Benito Schwartz WBC 9.1 103/ul Normal 4.0-11.0 [facility] Comment on above: Performed By: #### C BC #### [facility] [address] [place] [address] Dr. Benito Schwartz FREE T4on 05-12-2022 Free T4 [Mass/Vol] 1.25 ng/dL Normal 0.76-1.46 [facility] Comment on above: Performed By: #### V ITAD #### [facility] [address] [place] [address] Dr. Benito Schwartz MAGNESIUMon 05-12-2022 Magnesium [Mass/Vol] 2.1 mg/dL Normal 1.8-2.4 [facility] Comment on above: Performed By: #### F T4 #### [facility] [address] [place] [address] Dr. Benito Schwartz PHOSPHORUSon 05-12-2022 Phosphate [Mass/Vol] 4.2 mg/dL Normal 2.6-4.7 [facility] Comment on above: Performed By: #### F T4 #### [facility] [address] [place] [address] Dr. Benito Scwhartz PROF CHEM 8 (BAS METB)on Anion gap [Moles/Vol] 13.4 mmol/L Normal [facility] Comment on above: Performed By: #### F T4 #### [facility] [address] [place] [address] Dr. Benito Schwartz Calcium [Mass/Vol] 9.1 mg/dL Normal 8.5-10.1 [facility] Comment on above: Performed By: #### F T4 #### [facility] [address] [place] [address] Dr. Benito Schwartz Chloride [Moles/Vol] 103 mmol/L Normal 98-107 [facility] Comment on above: Performed By: #### F T4 #### [facility] [address] [place] [address] Dr. Benito Schwartz CO2 [Moles/Vol] 28.6 mmol/L Normal 21.0-32.0 [facility] Comment on above: Performed By: #### F T4 #### [facility] [address] [address] [address] Benito Schwartz Creatinine [Mass/Vol] 2.30 mg/dL Critically high 0.70-1.30 [facility] Comment on above: Performed By: #### F T4 #### [facility] [address] [address] [address] Benito Schwartz EGFR-AF ERITREAN 33 mL/min/1.73m2 Critically low >=60 [facility] Comment on above: Performed By: #### F T4 #### [facility] [address] [address] [address] Benito Schwartz EGFR-NON AF ERITREAN 27 mL/min/1.73m2 Critically low >=60 [facility] Comment on above: Performed By: #### F T4 #### [facility] [address] [address] [address] Benito Schwartz Glucose [Mass/Vol] 123 mg/dL Critically high 74-106 [facility] Comment on above: Performed By: #### F T4 #### [facility] [address] [address] [address] Benito Schwartz Potassium [Moles/Vol] 4.0 mmol/L Normal 3.5-5.1 [facility] Comment on above: Performed By: #### F T4 #### [facility] [address] [address] [address] Benito Schwartz Sodium [Moles/Vol] 141 mmol/L Normal 136-145 [facility] Comment on above: Performed By: #### F T4 #### [facility] [address] [address] [address] Benito Schwartz Urea nitrogen [Mass/Vol] 51.0 mg/dL Critically high 7.0-18.0 [facility] Comment on above: Performed By: #### F T4 #### [facility] [address] [address] [address] Benito Schwartz Urea nitrogen/Creatinine [Mass ratio] 22.2 mg/mg Normal [facility] Comment on above: Performed By: #### F T4 #### [facility] [address] [place] [address] Dr. Benito Schwartz TSHon 05-12-2022 TSH Qn m[IU]/L Critically low 0.358-3.740 [facility] Comment on above: Performed By: #### C BC #### [facility] [address] [place] [address] Dr. Benito Schwartz UA RANDOMon 05-12-2022 Bilirubin Ql (U) Negative Normal NEGATIVE [facility] Comment on above: Performed By: #### U RTPCR #### [facility] [address] [place] [address] Dr. Benito Schwartz Clarity (U) CLEAR Normal CLEAR [facility] Comment on above: Performed By: #### U RTPCR #### [facility] [address] [place] [address] Dr. Benito Schwartz Color (U) LT. YELLOW Normal YELLOW [facility] Comment on above: Performed By: #### U RTPCR #### [facility] [address] [place] [address] Dr. Benito Schwartz Glucose Ql (U) Negative Normal NEGATIVE [facility] Comment on above: Performed By: #### U RTPCR #### [facility] [address] [place] [address] Dr. Benito Schwartz Hemoglobin Ql (U) Negative Normal NEGATIVE [facility] Comment on above: Performed By: #### U RTPCR #### [facility] [address] [place] [address] Dr. Benito Schwartz Ketones Ql (U) Negative Normal NEGATIVE [facility] Comment on above: Performed By: #### U RTPCR #### [facility] [address] [place] [address] Dr. Benito Schwartz LEUKOCYTES Negative Normal NEGATIVE [facility] Comment on above: Performed By: #### U RTPCR #### [facility] [address] [place] [address] Dr. Benito Schwartz Nitrite Ql (U) Negative Normal NEGATIVE [facility] Comment on above: Performed By: #### U RTPCR #### [facility] [address] [place] [address] Dr. Bneito Schwartz pH (U) 5.5 [pH] Normal 5-9 [facility] Comment on above: Performed By: #### U RTPCR #### [facility] [address] [place] [address] Dr. Benito Schwartz SPEC GRAVITY 1.010 Normal 1.005-<=1.02 5 [facility] Comment on above: Performed By: #### U RTPCR #### [facility] [address] [place] [address] Dr. Benito Schwartz UA PROTEIN Negative Normal NEGATIVE/ TRACE [facility] Comment on above: Performed By: #### U RTPCR #### [facility] [address] [place] [address] Dr. Benito Schwartz Urobilinogen Qn (U) 0.2 {Jagruti'U}/dL Normal 0.2 - 1. 0 [facility] Comment on above: Performed By: #### U RTPCR #### [facility] [address] [place] [address] Dr. Benito Schwartz URINE T PROTEIN CREAT RATIOo n 05-12-2022 Protein (U) [Mass/Vol] 18.3 mg/dL Critically high <=12.0 [facility] Comment on above: Performed By: #### U RTPCR #### [facility] [address] [place] [address] Dr. Benito Schwartz UR PROT CREAT RAT 0.39 Normal [facility] Comment on above: Performed By: #### U RTPCR #### [facility] [address] [place] [address] Dr. Benito Schwartz URINE CREAT 47.44 mg/dL Normal 20.00-300.00 [facility] Comment on above: Performed By: #### U RTPCR #### [facility] [address] [place] [address] Dr. Benito Schwartz HEMOGLOBINon 05-10-2022 Hemoglobin (Bld) [Mass/Vol] 9.6 g/dL Critically low 14.0-18.0 [facility] Comment on above: Performed By: #### F T4, PSASC #### [facility] [address] [place] [address] Dr. Benito Schwartz NM THY SCAN W [...] by: JJ HI Date: 2022-04-28 09:05 Normal [facility] T3, TOTAL (TRIIODOTHYRONINE) on 04-09-2022 T3, TOTAL 167 ng/dL Normal 71-180 [facility] Comment on above: Performed By: #### B 12FOL, FETIBC #### [facility] [address] [place] [address] Dr. Benito Schwartz FREE T3on 04-08-2022 FREE T3 6.07 pg/mlL Critically high 2.18-3.98 [facility] Comment on above: Performed By: #### T SH, FT3, BMP #### [facility] [address] [place] [address] Dr. Benito Schwartz FREE T4on 04-08-2022 Free T4 [Mass/Vol] 2.62 ng/dL Critically high 0.76-1.46 [facility] Comment on above: Performed By: #### T SH, FT3, BMP #### [facility] [address] [place] [address] Dr. Benito Schwartz PROF CHEM 8 (BAS METB)on Anion gap [Moles/Vol] 13.5 mmol/L Normal [facility] Comment on above: Performed By: #### B 12FOL, FETIBC #### [facility] [address] [address] [address] Benito Schwartz Calcium [Mass/Vol] 9.9 mg/dL Normal 8.5-10.1 [facility] Comment on above: Performed By: #### B 12FOL, FETIBC #### [facility] [address] [address] [address] Benito Schwartz Chloride [Moles/Vol] 105 mmol/L Normal 98-107 [facility] Comment on above: Performed By: #### B 12FOL, FETIBC #### [facility] [address] [address] [address] Benito Schwartz CO2 [Moles/Vol] 26.5 mmol/L Normal 21.0-32.0 [facility] Comment on above: Performed By: #### B 12FOL, FETIBC #### [facility] [address] [place] [address] Dr. Benito Schwartz Creatinine [Mass/Vol] 2.33 mg/dL Critically high 0.70-1.30 [facility] Comment on above: Performed By: #### B 12FOL, FETIBC #### [facility] [address] [place] [address] Dr. Benito Schwartz EGFR-AF ERITREAN 33 mL/min/1.73m2 Critically low >=60 [facility] Comment on above: Performed By: #### B 12FOL, FETIBC #### [facility] [address] [place] [address] Dr. Benito Schwartz EGFR-NON AF ERITREAN 27 mL/min/1.73m2 Critically low >=60 [facility] Comment on above: Performed By: #### B 12FOL, FETIBC #### [facility] [address] [place] [address] Dr. Benito Schwartz Glucose [Mass/Vol] 104 mg/dL Normal 74-106 [facility] Comment on above: Performed By: #### B 12FOL, FETIBC #### [facility] [address] [place] [address] Dr. Benito Schwartz Potassium [Moles/Vol] 5.0 mmol/L Normal 3.5-5.1 [facility] Comment on above: Performed By: #### B 12FOL, FETIBC #### [facility] [address] [place] [address] Dr. Benito Schwartz Sodium [Moles/Vol] 140 mmol/L Normal 136-145 [facility] Comment on above: Performed By: #### B 12FOL, FETIBC #### [facility] [address] [place] [address] Dr. Benito Schwartz Urea nitrogen [Mass/Vol] 60.0 mg/dL Critically high 7.0-18.0 [facility] Comment on above: Performed By: #### B 12FOL, FETIBC #### [facility] [address] [place] [address] Dr. Benito Schwartz Urea nitrogen/Creatinine [Mass ratio] 25.8 mg/mg Normal [facility] Comment on above: Performed By: #### B 12FOL, FETIBC #### [facility] [address] [place] [address] Dr. Benito Schwartz TSHon 04-08-2022 TSH Qn m[IU]/L Critically low 0.358-3.740 [facility] Comment on above: Performed By: #### T SH, FT3, BMP #### [facility] [address] [place] [address] Dr. Benito Schwartz BASIC METABOLIC PANELon 03-16 Calcium [Mass/Vol] 9.1 mg/dL Normal 8.6-10.3 [facility] Comment on above: Order Comment: No: D o not add to previous draw Performed By: #### 1 0, [id number] #### [facility] [address] [place] [address], [facility] Chloride [Moles/Vol] 106 mmol/L Normal 98-107 [facility] Comment on above: Order Comment: No: D o not add to previous draw Performed By: #### 1 69, [id number] #### [facility] [address] [place] [address], [place] CO2 [Moles/Vol] 25 mmol/L Normal 21-31 [facility] Comment on above: Order Comment: No: D o not add to previous draw Performed By: #### 1 69, 11096 #### [facility] [address] [place] [address], [place] Creatinine [Mass/Vol] 2.12 mg/dL High 0.70-1.30 [facility] Comment on above: Order Comment: No: D o not add to previous draw Performed By: #### 1 69, [id number] #### [facility] [address] [place] [address], [place] eGFR- 37 ml/min/1.73sq m Abnormal >60 [facility] Comment on above: Order Comment: No: D o not add to previous draw Result Comment: Calc ulation may not be valid for patients over 70 years Performed By: #### 1 69, 33488 #### [facility] [address] [place] [address], [place] eGFR- non- 30 ml/min/1.73sq m Abnormal >60 [facility] Comment on above: Order Comment: No: D o not add to previous draw Result Comment: Calc ulation may not be valid for patients over 70 years Performed By: #### 1 69, 22356 #### [facility] [address] [place] [address], [place] Glucose [Mass/Vol] 93 mg/dL Normal 70-100 [facility] Comment on above: Order Comment: No: D o not add to previous draw Performed By: #### 1 69, [id number] #### [facility] [address] [place] [address], [place] Potassium [Moles/Vol] 3.9 mmol/L Normal 3.5-5.1 [facility] Comment on above: Order Comment: No: D o not add to previous draw Performed By: #### 1 69, 13753 #### [facility] [address] [place] [address], [facility] Sodium [Moles/Vol] 141 mmol/L Normal 136-145 [facility] Comment on above: Order Comment: No: D o not add to previous draw Performed By: #### 1 69, 45561 #### [facility] [address] Urea nitrogen [Mass/Vol] 56 mg/dL High 7-25 [facility] Comment on above: Order Comment: No: D o not add to previous draw Performed By: #### 1 69, 40235 #### [facility] [address] CBC COMPLETE BLOOD COUNTon - Erythrocyte distribution width (RBC) [Ratio] 13.6 % Normal 11.5-15.0 [facility] Comment on above: Order Comment: No: D o not add to previous draw Performed By: #### 5 0103 #### [facility] [address] [place] [address], [facility] Hematocrit (Bld) [Volume fraction] 26.2 % Low 39.0-50.0 [facility] Comment on above: Order Comment: No: D o not add to previous draw Performed By: #### 5 3 #### [facility] [address] [place] [address], [facility] Hemoglobin (Bld) [Mass/Vol] 8.7 g/dL Low 13.0-17.0 [facility] Comment on above: Order Comment: No: D o not add to previous draw Performed By: #### 5 0103 #### [facility] [address] [place] [address], [facility] MCH (RBC) [Entitic mass] 29.3 pg Normal 27.0-33.0 [facility] Comment on above: Order Comment: No: D o not add to previous draw Performed By: #### 5 0103 #### [facility] [address] [place] [address], [facility] MCHC (RBC) [Mass/Vol] 33.2 g/dL Normal 32.0-35.0 [facility] Comment on above: Order Comment: No: D o not add to previous draw Performed By: #### 5 0103 #### [facility] [address] [place] [address], [facility] MCV (RBC) [Entitic vol] 88.2 fL Normal 82.0-98.0 T [facility] Comment on above: Order Comment: No: D o not add to previous draw Performed By: #### 5 0103 #### [facility] [address] [place] [address], [facility] Nucleated RBC/100 WBC (Bld) [Ratio] 0 % Normal 0-0 [facility] Comment on above: Order Comment: No: D o not add to previous draw Performed By: #### 5 0103 #### [facility] [address] [place] [address], [facility] PLAT CNT 190 10*3/uL Normal 150-400 [facility] Comment on above: Order Comment: No: D o not add to previous draw Performed By: #### 5 0103 #### [facility] [address] [address], [facility] RBC (Bld) [#/Vol] 2.97 10*6/uL Low 4.20-5.70 [facility] Comment on above: Order Comment: No: D o not add to previous draw Performed By: #### 5 0103 #### [facility] [address] [place] [address], [facility] WBC (Bld) [#/Vol] 5.20 10*3/uL Normal 4.00-10.60 [facility] Comment on above: Order Comment: No: D o not add to previous draw Performed By: #### 5 0103 #### [facility] [address] [place] [address], [facility] MAGNESIUM BLOODon 04-02-2022 Magnesium [Mass/Vol] 2.2 mg/dL Normal 1.9-2.7 [facility] Comment on above: Order Comment: No: D o not add to previous draw Performed By: #### 1 0070, [id number] #### [facility] [address] [place] [address], [facility] POC GLUCOSE LABon 04-02-2022 Glucose [Mass/Vol] 99 mg/dL Normal 70-100 [facility] Comment on above: Performed By: #### 5 0608 #### [facility] [address] [place] [address], [facility] BASIC METABOLIC PANELon 03-16 Calcium [Mass/Vol] 9.1 mg/dL Normal 8.6-10.3 [facility] Comment on above: Order Comment: No: D o not add to previous draw Performed By: #### 5 0608 #### [facility] [address] [place] [address], [facility] Chloride [Moles/Vol] 106 mmol/L Normal 98-107 [facility] Comment on above: Order Comment: No: D o not add to previous draw Performed By: #### 5 0608 #### [facility] [address] [place] [address], [place] CO2 [Moles/Vol] 25 mmol/L Normal 21-31 [facility] Comment on above: Order Comment: No: D o not add to previous draw Performed By: #### 5 0608 #### [facility] [address] [place] [address], [place] Creatinine [Mass/Vol] 2.07 mg/dL High 0.70-1.30 [facility] Comment on above: Order Comment: No: D o not add to previous draw Performed By: #### 5 0608 #### [facility] [address] [place] [address], [facility] eGFR- 38 ml/min/1.73sq m Abnormal >60 [facility] Comment on above: Order Comment: No: D o not add to previous draw Result Comment: Calc ulation may not be valid for patients over 70 years Performed By: #### 5 0608 #### [facility] [address] [place] [address], [place] eGFR- non- 31 ml/min/1.73sq m Abnormal >60 [facility] Comment on above: Order Comment: No: D o not add to previous draw Result Comment: Calc ulation may not be valid for patients over 70 years Performed By: #### 5 0608 #### [facility] [address] [place] [address], [place] Glucose [Mass/Vol] 94 mg/dL Normal 70-100 [facility] Comment on above: Order Comment: No: D o not add to previous draw Performed By: #### 5 0608 #### [facility] [address] [place] [address], [place] Potassium [Moles/Vol] 3.9 mmol/L Normal 3.5-5.1 [facility] Comment on above: Order Comment: No: D o not add to previous draw Performed By: #### 5 0608 #### [facility] [address] [place] [address], [place] Sodium [Moles/Vol] 144 mmol/L Normal 136-145 [facility] Comment on above: Order Comment: No: D o not add to previous draw Performed By: #### 5 0608 #### [facility] [address] [place] [address], [place] Urea nitrogen [Mass/Vol] 54 mg/dL High 7-25 [facility] Comment on above: Order Comment: No: D o not add to previous draw Performed By: #### 5 0608 #### [facility] [address] [place] [address], [facility] CBC COMPLETE BLOOD COUNTon 0 04-01-2022 Erythrocyte distribution width (RBC) [Ratio] 13.5 % Normal 11.5-15.0 [facility] Comment on above: Order Comment: No: D o not add to previous draw Performed By: #### 5 0608 #### [facility] [address] [place] [address], [facility] Hematocrit (Bld) [Volume fraction] 27.5 % Low 39.0-50.0 [facility] Comment on above: Order Comment: No: D o not add to previous draw Performed By: #### 5 0608 #### [facility] [address] [place] [address], [facility] Hemoglobin (Bld) [Mass/Vol] 8.9 g/dL Low 13.0-17.0 [facility] Comment on above: Order Comment: No: D o not add to previous draw Performed By: #### 5 0608 #### [facility] [address] [facility] [place] [address], [facility] MCH (RBC) [Entitic mass] 29.2 pg Normal 27.0-33.0 [facility] Comment on above: Order Comment: No: D o not add to previous draw Performed By: #### 5 0608 #### [facility] [address] [facility] [place] [address], [facility] MCHC (RBC) [Mass/Vol] 32.4 g/dL Normal 32.0-35.0 [facility] Comment on above: Order Comment: No: D o not add to previous draw Performed By: #### 5 0608 #### [facility] [address] [place] [address], [facility] MCV (RBC) [Entitic vol] 90.2 fL Normal 82.0-98.0 [facility] Comment on above: Order Comment: No: D o not add to previous draw Performed By: #### 5 0608 #### [facility] [address] [place] [address], [facility] Nucleated RBC/100 WBC (Bld) [Ratio] 0 % Normal 0-0 [facility] Comment on above: Order Comment: No: D o not add to previous draw Performed By: #### 5 0608 #### [facility] [address] [facility] [place] [address], [facility] PLAT CNT 213 10*3/uL Normal 150-400 [facility] Comment on above: Order Comment: No: D o not add to previous draw Performed By: #### 5 0608 #### [facility] [address] [place] [address], [facility] RBC (Bld) [#/Vol] 3.05 10*6/uL Low 4.20-5.70 [facility] Comment on above: Order Comment: No: D o not add to previous draw Performed By: #### 5 0608 #### [facility] [address] [place] [address], [facility] WBC (Bld) [#/Vol] 6.02 10*3/uL Normal 4.00-10.60 [facility] Comment on above: Order Comment: No: D o not add to previous draw Performed By: #### 5 0608 #### [facility] [address] Cardiovascular Lab Reporton 04-01-2022 Cardiovascular Lab Report [facility]: [id number] Physician: Sriram Rick, Department of M.D. Medicine Service Date: 03/31/2022 Division of Birthdate: 1940 Cardiology Room #: 3AB 227314 Adult Cardiovascular Services [facility] [place] [address] Cardiovascular Laboratory Report FINAL IMPRESSIONS: 1. Moderately [...] right internal jugular vein was obtained. A 6-[place] 11 cm sheath was inserted without difficulty. [...] P/Sriram Rick M.D. Date Trans: 04/01/2022 02:03 A/racho [id number] cc: Arnie Linda D.O. [address] [place], [place] [address] [place] [address] Normal [facility] HEMOGLOBIN A1Con 04-01-2022 Glucose [Moles/Vol] 137 mmol/L Normal [facility] Comment on above: Order Comment: If no t done in EDNo: Do not add to previous draw Performed By: #### 5 0103 #### [facility] [address] [place] [address], [facility] HbA1c (Bld) [Mass fraction] 6.4 % High 4.0-6.0 [facility] Comment on above: Order Comment: If no t done in EDNo: Do not add to previous draw Performed By: #### 5 0103 #### [facility] [address] [place] [address], [place] MAGNESIUM BLOODon 04-01-2022 Magnesium [Mass/Vol] 2.2 mg/dL Normal 1.9-2.7 [facility] Comment on above: Order Comment: No: D o not add to previous draw Performed By: #### 5 0608 #### [facility] [address] [place] [address], [place] POC GLUCOSE LABon 04-01-2022 Glucose [Mass/Vol] 114 mg/dL High 70-100 [facility] Comment on above: Performed By: #### 5 0103 #### [facility] [address] [place] [address], [place] Glucose [Mass/Vol] 117 mg/dL High 70-100 [facility] Comment on above: Performed By: #### 5 0608 #### [facility] [address] [place] [address], [place] Glucose [Mass/Vol] 139 mg/dL High 70-100 [facility] Comment on above: Performed By: #### 5 0608 #### [facility] [address] [place] [address], [place] Glucose [Mass/Vol] 98 mg/dL Normal 70-100 [facility] Comment on above: Performed By: #### 5 0608 #### [facility] [address] [place] [address], [place] BASIC METABOLIC PANELon 03-16 Calcium [Mass/Vol] 9.1 mg/dL Normal 8.6-10.3 [facility] Comment on above: Order Comment: No: D o not add to previous draw Performed By: #### 4 4396, 72093, 29009, 37829, 32353 #### [facility] [address] [place] [address], [place] Chloride [Moles/Vol] 104 mmol/L Normal 98-107 [facility] Comment on above: Order Comment: No: D o not add to previous draw Performed By: #### 4 4396, 40819, 88864, 90917, 58392 #### [facility] [address] [place] [address], [place] CO2 [Moles/Vol] 27 mmol/L Normal 21-31 [facility] Comment on above: Order Comment: No: D o not add to previous draw Performed By: #### 4 4396, 96530, 33438, 24327, 54078 #### [facility] [address] [place] [address], [place] Creatinine [Mass/Vol] 2.59 mg/dL High 0.70-1.30 [facility] Comment on above: Order Comment: No: D o not add to previous draw Performed By: #### 4 4396, 01319, 64052, 36529, 15056 #### [facility] [address] [place] [address], [place] eGFR- 29 ml/min/1.73sq m Abnormal >60 [facility] Comment on above: Order Comment: No: D o not add to previous draw Result Comment: Calc ulation may not be valid for patients over 70 years Performed By: #### 4 4396, 79690, 83636, 50341, 73391 #### [facility] [address] [place] [address], [place] eGFR- non- 24 ml/min/1.73sq m Abnormal >60 [facility] Comment on above: Order Comment: No: D o not add to previous draw Result Comment: Calc ulation may not be valid for patients over 70 years Performed By: #### 4 4396, 94543, 72757, 17884, 90286 #### [facility] [address] [place] [address], [place] Glucose [Mass/Vol] 90 mg/dL Normal 70-100 [facility] Comment on above: Order Comment: No: D o not add to previous draw Performed By: #### 4 4396, 54440, 03399, 08033, 17093 #### [facility] [address] [place] [address], [place] Potassium [Moles/Vol] 4.2 mmol/L Normal 3.5-5.1 [facility] Comment on above: Order Comment: No: D o not add to previous draw Performed By: #### 4 4396, 46170, 13884, 42417, 73799 #### [facility] [address] [place] [address], [place] Sodium [Moles/Vol] 141 mmol/L Normal 136-145 [facility] Comment on above: Order Comment: No: D o not add to previous draw Performed By: #### 4 4396, 20533, 31013, 11153, 29298 #### [facility] [address] [place] [address], [place] Urea nitrogen [Mass/Vol] 55 mg/dL High 7-25 [facility] Comment on above: Order Comment: No: D o not add to previous draw Performed By: #### 4 4396, 06818, 94875, 57398, 38731 #### [facility] [address] CBC COMPLETE BLOOD COUNTon 0 - Erythrocyte distribution width (RBC) [Ratio] 13.6 % Normal 11.5-15.0 [facility] Comment on above: Order Comment: No: D o not add to previous draw Performed By: #### 5 0608 #### [facility] [address] [place] [address], [facility] Hematocrit (Bld) [Volume fraction] 27.1 % Low 39.0-50.0 [facility] Comment on above: Order Comment: No: D o not add to previous draw Performed By: #### 5 0608 #### [facility] [address] [place] [id number], [facility] Hemoglobin (Bld) [Mass/Vol] 8.7 g/dL Low 13.0-17.0 [facility] Comment on above: Order Comment: No: D o not add to previous draw Performed By: #### 5 0608 #### [facility] [address] [facility] [place] [address], [facility] MCH (RBC) [Entitic mass] 28.8 pg Normal 27.0-33.0 [facility] Comment on above: Order Comment: No: D o not add to previous draw Performed By: #### 5 0608 #### [facility] [address] [place] [address], [facility] MCHC (RBC) [Mass/Vol] 32.1 g/dL Normal 32.0-35.0 [facility] Comment on above: Order Comment: No: D o not add to previous draw Performed By: #### 5 0608 #### [facility] [address] [place] [id number], [facility] MCV (RBC) [Entitic vol] 89.7 fL Normal 82.0-98.0 T mela [facility] Comment on above: Order Comment: No: D o not add to previous draw Performed By: #### 5 0608 #### [facility] [address] [place] [address], [facility] Nucleated RBC/100 WBC (Bld) [Ratio] 0 % Normal 0-0 [facility] Comment on above: Order Comment: No: D o not add to previous draw Performed By: #### 5 0608 #### [facility] [address] [place] [address], [facility] PLAT CNT 184 10*3/uL Normal 150-400 [facility] Comment on above: Order Comment: No: D o not add to previous draw Performed By: #### 5 0608 #### [facility] [address] [facility] [place] [address], [facility] RBC (Bld) [#/Vol] 3.02 10*6/uL Low 4.20-5.70 [facility] Comment on above: Order Comment: No: D o not add to previous draw Performed By: #### 5 0608 #### [facility] [address] [place] [address], [facility] WBC (Bld) [#/Vol] 5.93 10*3/uL Normal 4.00-10.60 [facility] Comment on above: Order Comment: No: D o not add to previous draw Performed By: #### 5 0608 #### [facility] [address] [place] [address], [facility] FREE T4on 03-31-2022 Free T4 [Mass/Vol] 4.55 ng/dL High 0.71-1.85 [facility] Comment on above: Performed By: #### 5 0103 #### [facility] [address] [facility] [place] [address], [facility] MAGNESIUM BLOODon 03-31-2022 Magnesium [Mass/Vol] 2.3 mg/dL Normal 1.9-2.7 [facility] Comment on above: Order Comment: No: D o not add to previous draw Performed By: #### 4 4396, 20826, 41885, 79830, 54406 #### [facility] [address] [place] [address], [facility] PHOSPHORUS BLOODon 2 Phosphate [Mass/Vol] 5.4 mg/dL High 2.5-5.0 [facility] Comment on above: Order Comment: No: D o not add to previous draw Performed By: #### 4 4396, 76587, 23599, 46279, 28252 #### [facility] [address] [place], [place] [address] [place] [address] POC GLUCOSE LABon 03-31-2022 Glucose [Mass/Vol] 161 mg/dL High 70-100 [facility] Comment on above: Performed By: #### 5 0608 #### [facility] [address] [place] [address], [facility] Glucose [Mass/Vol] 108 mg/dL High 70-100 [facility] Comment on above: Performed By: #### 5 0608 #### [facility] [address] [facility]. [address] POC SARS COV2 ANTIGEN NEGATI VEon [...] antigen from SARS-CoV-2 in direct nasopharyngeal swab ([employer]) specimens from individuals who are suspected of [...] Performed By: #### 5 0103 #### [facility] [address] [facility]. [address] TSH3on 03-31-2022 TSH 3RD GENERATION <0.01 Critically low 0.34-5.60 Th e [facility] Comment on above: Performed By: #### 4 4396, 55189, 94250, 44880, 03989 #### [facility] [address] [place] [address], [facility] BASIC METABOLIC PANELon 03-16 Calcium [Mass/Vol] 9.8 mg/dL Normal 8.6-10.3 [facility] Comment on above: Order Comment: No: D o not add to previous draw Performed By: #### 5 0103 #### [facility] [address] [facility] [place] [address], [facility] Chloride [Moles/Vol] 103 mmol/L Normal 98-107 [facility] Comment on above: Order Comment: No: D o not add to previous draw Performed By: #### 5 0103 #### [facility] [address] [facility] [place] [address], [facility] CO2 [Moles/Vol] 29 mmol/L Normal 21-31 [facility] Comment on above: Order Comment: No: D o not add to previous draw Performed By: #### 5 0103 #### [facility] [address] [place] [address], [facility] Creatinine [Mass/Vol] 2.60 mg/dL High 0.70-1.30 [facility] Comment on above: Order Comment: No: D o not add to previous draw Performed By: #### 5 0103 #### [facility] [address] [place] [address], [facility] eGFR- 29 ml/min/1.73sq m Abnormal >60 [facility] Comment on above: Order Comment: No: D o not add to previous draw Result Comment: Calc ulation may not be valid for patients over 70 years Performed By: #### 5 0103 #### [facility] [address] [place] [address], [place] eGFR- non- 24 ml/min/1.73sq m Abnormal >60 [facility] Comment on above: Order Comment: No: D o not add to previous draw Result Comment: Calc ulation may not be valid for patients over 70 years Performed By: #### 5 0103 #### [facility] [address] [place] [address], [place] Glucose [Mass/Vol] 109 mg/dL High 70-100 [facility] Comment on above: Order Comment: No: D o not add to previous draw Performed By: #### 5 0103 #### [facility] [address] [place] [address], [place] Potassium [Moles/Vol] 4.0 mmol/L Normal 3.5-5.1 [facility] Comment on above: Order Comment: No: D o not add to previous draw Performed By: #### 5 0103 #### [facility] [address] [place] [address], [place] Sodium [Moles/Vol] 141 mmol/L Normal 136-145 [facility] Comment on above: Order Comment: No: D o not add to previous draw Performed By: #### 5 0103 #### [facility] [address] [place] [address], [place] Urea nitrogen [Mass/Vol] 55 mg/dL High 7-25 [facility] Comment on above: Order Comment: No: D o not add to previous draw Performed By: #### 5 0103 #### [facility] [address] [place] [address], [facility] CBC W/DIFFon 03-30-2022 ABS IMM GRANS 0.0 10*3/uL Normal 0.0-0.2 [facility] Comment on above: Performed By: #### 5 0103 #### [facility] [address] [facility] [address], [facility] ABS NEUTROPHILS 4.1 10*3/uL Normal 1.6-7.6 [facility] Comment on above: Performed By: #### 5 0103 #### [facility] [address] [place] [address], [facility] Basophils (Bld) [#/Vol] 0.0 10*3/uL Normal 0.0-0.2 [facility] Comment on above: Performed By: #### 5 0103 #### [facility] [address] [facility] [address], [facility] Basophils/100 WBC (Bld) 0.3 % Normal 0.0-1.0 T mela [facility] Comment on above: Performed By: #### 5 0103 #### [facility] [address] [facility] [place] [address], [facility] Eosinophils (Bld) [#/Vol] 0.3 10*3/uL Normal 0.0-0.5 [facility] Comment on above: Performed By: #### 5 0103 #### [facility] [address] [facility]. [place] [id number], [facility] Eosinophils/100 WBC (Bld) 5.3 % Normal 0.0-6.0 [facility] Comment on above: Performed By: #### 5 3 #### [facility] [address] [facility] [place] [address], [facility] Erythrocyte distribution width (RBC) [Ratio] 13.7 % Normal 11.5-15.0 [facility] Comment on above: Performed By: #### 5 0103 #### [facility] [address] [facility] [address] Hematocrit (Bld) [Volume fraction] 30.2 % Low 39.0-50.0 [facility] Comment on above: Performed By: #### 5 0103 #### [facility] [address] [place] [address], [facility] Hemoglobin (Bld) [Mass/Vol] 9.8 g/dL Low 13.0-17.0 [facility] Comment on above: Performed By: #### 5 0103 #### [facility] [address] IMMATURE GRANS 0.3 % Normal 0.0-1.0 [facility] Comment on above: Performed By: #### 5 0103 #### [facility] [address] Lymphocytes (Bld) [#/Vol] 1.1 10*3/uL Low 1.2-4.0 [facility] Comment on above: Performed By: #### 5 0103 #### [facility] [address] Lymphocytes/100 WBC (Bld) 17.9 % Low 20.0-45.0 [facility] Comment on above: Performed By: #### 5 0103 #### [facility] [address] [facility]. [address] MCH (RBC) [Entitic mass] 29.3 pg Normal 27.0-33.0 [facility] Comment on above: Performed By: #### 5 3 #### [facility] [address] MCHC (RBC) [Mass/Vol] 32.5 g/dL Normal 32.0-35.0 [facility] Comment on above: Performed By: #### 5 102 #### [facility] [address] [place] [address], [facility] MCV (RBC) [Entitic vol] 90.4 fL Normal 82.0-98.0 T [facility] Comment on above: Performed By: #### 102 #### [facility] [address] [place] [address], [facility] Monocytes (Bld) [#/Vol] 0.7 10*3/uL Normal 0.1-1.0 [facility] Comment on above: Performed By: #### 5 102 #### [facility] [address] MONOS 11.6 % Normal 5.0-12.0 [facility] Comment on above: Performed By: #### 102 #### [facility] [address] Neutrophils/100 WBC (Bld) 64.6 % Normal 40.0-72.0 [facility] Comment on above: Performed By: #### 5 102 #### [facility] [address] Nucleated RBC/100 WBC (Bld) [Ratio] 0 % Normal 0-0 [facility] Comment on above: Performed By: #### 5 102 #### [facility] [address] [place] [address], [facility] PLAT CNT 215 10*3/uL Normal 150-400 [facility] Comment on above: Performed By: #### 5 102 #### [facility] [address] [place] [address], [facility] RBC (Bld) [#/Vol] 3.34 10*6/uL Low 4.20-5.70 [facility] Comment on above: Performed By: #### 5 102 #### [facility] [address] WBC (Bld) [#/Vol] 6.38 10*3/uL Normal 4.00-10.60 [facility] Comment on above: Performed By: #### 5 0103 #### [facility] [address] [place] [address], [facility] MAGNESIUM BLOODon 03-30-2022 Magnesium [Mass/Vol] 2.3 mg/dL Normal 1.9-2.7 [facility] Comment on above: Order Comment: No: D o not add to previous draw Performed By: #### 5 0103 #### [facility] [address] [place] [address], [facility] TROPONIN-Ion 03-30-2022 Troponin I.cardiac [Mass/Vol] 0.04 ng/mL Normal 0.00-0.04 [facility] Comment on above: Order Comment: No: D o not add to previous draw Result Comment: REFE RENCE RANGES: 0.00 - 0.04 ng/ml NORMAL 0.05 - 0.50 ng/ml INDETERMINATE > 0.50 ng/ml CONSISTENT WITH AN M.I. Performed By: #### 5 0103 #### [facility] [address] BNPon 03-25-2022 Natriuretic peptide B (Bld) [Mass/Vol] 7410.0 pg/mL Critically high <=1,800.0 [facility] Comment on above: Performed By: #### F T4 #### [facility] [address] [place] [address] Dr. Benito Schwartz PROF CHEM 8 (BAS METB)on Anion gap [Moles/Vol] 14.5 mmol/L Normal [facility] Comment on above: Performed By: #### F T4 #### [facility] [address] [place] [address] Dr. Benito Schwartz Calcium [Mass/Vol] 9.6 mg/dL Normal 8.5-10.1 [facility] Comment on above: Performed By: #### F T4 #### [facility] [address] [place] [address] [address] Benito Schwartz Chloride [Moles/Vol] 105 mmol/L Normal 98-107 [facility] Comment on above: Performed By: #### F T4 #### [facility] [address] [address] [address] Benito Schwartz CO2 [Moles/Vol] 27.6 mmol/L Normal 21.0-32.0 [facility] Comment on above: Performed By: #### F T4 #### [facility] [address] [address] [address] Benito Schwartz Creatinine [Mass/Vol] 2.48 mg/dL Critically high 0.70-1.30 [facility] Comment on above: Performed By: #### F T4 #### [facility] [address] [address] [address] Benito Schwartz EGFR-AF ERITREAN 31 mL/min/1.73m2 Critically low >=60 [facility] Comment on above: Performed By: #### F T4 #### [facility] [address] [address] [address] Benito Schwartz EGFR-NON AF ERITREAN 25 mL/min/1.73m2 Critically low >=60 [facility] Comment on above: Performed By: #### F T4 #### [facility] [address] [address] [address] Benito Schwartz Glucose [Mass/Vol] 116 mg/dL Critically high 74-106 [facility] Comment on above: Performed By: #### F T4 #### [facility] [address] [address] [address] Benito Schwartz Potassium [Moles/Vol] 4.1 mmol/L Normal 3.5-5.1 [facility] Comment on above: Performed By: #### F T4 #### [facility] [address] [address] [address] Benito Schwartz Sodium [Moles/Vol] 143 mmol/L Normal 136-145 [facility] [place] Comment on above: Performed By: #### F T4 #### [facility] [address] [place] [address] Dr. Benito Schwartz Urea nitrogen [Mass/Vol] 56.0 mg/dL Critically high 7.0-18.0 [facility] Comment on above: Performed By: #### F T4 #### [facility] [address] [place] [address] Dr. Benito Schwartz Urea nitrogen/Creatinine [Mass ratio] 22.6 mg/mg Normal [facility] Comment on above: Performed By: #### F T4 #### [facility] [address] [place] [address] Dr. Benito Schwartz CBC AUTO DIFFon 03-07-2022 BASO # 0.0 103/ul Normal 0.0-0.1 [facility] Comment on above: Performed By: #### V ITAD #### [facility] [address] [place] [address] Dr. Benito Schwartz Basophils/100 WBC (Bld) 0.3 % Normal 0.2-2.0 [facility] Comment on above: Performed By: #### V ITAD #### [facility] [address] [place] [address] Dr. Benito Schwartz EO # 0.1 103/ul Normal 0.0-0.7 [facility] Comment on above: Performed By: #### V ITAD #### [facility] [address] [place] [address] Dr. Benito Schwartz Eosinophils/100 WBC (Bld) 2.4 % Normal 0.9-7.0 [facility] Comment on above: Performed By: #### V ITAD #### [facility] [address] [place] [address] Dr. Benito Schwartz Erythrocyte distribution width (RBC) [Ratio] 13.4 % Normal 11.0-15.0 [facility] Comment on above: Performed By: #### V ITAD #### [facility] [address] [place] [address] Dr. Benito Schwartz Hematocrit (Bld) [Volume fraction] 27.7 % Critically low 42.0-54.0 [facility] Comment on above: Performed By: #### V ITAD #### [facility] [address] [place] [address] Dr. Benito Schwartz Hemoglobin (Bld) [Mass/Vol] 8.8 g/dL Critically low 14.0-18.0 [facility] Comment on above: Performed By: #### V ITAD #### [facility] [address] [place] [address] Dr. Benito Schwartz IG # 0.02 10e3/ul Normal 0.00-0.03 [facility] Comment on above: Performed By: #### V ITAD #### [facility] [address] [place] [address] Dr. Benito Schwartz IG % 0.3 % Normal 0.0-0.5 [facility] Comment on above: Performed By: #### V ITAD #### [facility] [address] [place] [address] Dr. Benito Schwartz LYMPH # 1.1 103/ul Critically low 1.2-3.8 [facility] Comment on above: Performed By: #### V ITAD #### [facility] [address] [place] [address] Dr. Benito Schwartz Lymphocytes/100 WBC (Bld) 17.9 % Critically low 20.5-60.0 [facility] Comment on above: Performed By: #### V ITAD #### [facility] [address] [place] [address] Dr. Benito Schwartz MANUAL DIFF REQ NO Normal [facility] Comment on above: Performed By: #### V ITAD #### [facility] [address] [place] [address] Dr. Benito Schwartz MCH (RBC) [Entitic mass] 29.0 pg Normal 25.9-34.0 [facility] Comment on above: Performed By: #### V ITAD #### [facility] [address] [place] [address] Dr. Benito Schwartz MCHC (RBC) [Mass/Vol] 31.8 g/dL Normal 29.9-35.2 [facility] Comment on above: Performed By: #### V ITAD #### [facility] [address] [place] [address] Dr. Benito Schwartz MCV (RBC) [Entitic vol] 91.4 fL Normal 80.0-94.0 [facility] Comment on above: Performed By: #### V ITAD #### [facility] [address] [place] [address] Dr. Benito Schwartz MONO # 0.9 103/ul Critically high 0.3-0.8 [facility] Comment on above: Performed By: #### V ITAD #### [facility] [address] [place] [address] Dr. Benito Schwartz Monocytes/100 WBC (Bld) 15.3 % Critically high 1.7-12. 0 [facility] Comment on above: Performed By: #### V ITAD #### [facility] [address] [place] [address] Dr. Benito Schwartz NEUT # 3.7 103/ul Normal 1.4-6.5 [facility] Comment on above: Performed By: #### V ITAD #### [facility] [address] [place] [address] Dr. Benito Schwartz Neutrophils/100 WBC (Bld) 63.8 % Normal 43.0-75.0 [facility] Comment on above: Performed By: #### V ITAD #### [facility] [address] [place] [address] Dr. Benito Schwartz Platelet mean volume (Bld) [Entitic vol] 9.8 fL Normal 9.5-13.5 [facility] Comment on above: Performed By: #### V ITAD #### [facility] [address] [place] [address] Dr. Benito Schwartz PLT 212 103/ul Normal 150-450 [facility] Comment on above: Performed By: #### V ITAD #### [facility] [address] [place] [address] Dr. Benito Schwartz RBC 3.03 106/ul Critically low 4.70-6.10 [facility] Comment on above: Performed By: #### V ITAD #### [facility] [address] [place], [place] [address] Dr. Benito Schwartz WBC 5.9 103/ul Normal 4.0-11.0 [facility] Comment on above: Performed By: #### V ITAD #### [facility] [address] [place], [place] [address] Dr. Benito Schwartz ECHOCARDIO M/2D COMPLETEon 0 03-07-2022 ECHOCARDIO M/2D COMPLETE Patient: NAS REN Exam Date: 03/07/2022 : 1940 Gender:M Ordering : DR RUPINDER GRIGSBY . Admission #: [id number] Family : DR ARNIE LINDA D.O. Order #: [id number] CLICK HERE TO VIEW EXAM ECHOCARDIOGRAM REPORT [...] Area(A4C): 23.30 cm2 Left Atrium Systolic Volume(A2C): 92515 mm3 Left Atrium Systolic Volume(A4C): 15522 mm3 Mitral Valve MV E to A [...] M.D. on 03/08/2022 at 11:16 Normal [facility] OCC BLD IMMUNO SCREENon 02-14 OCCULT BLOOD Negative Normal NEGATIVE [facility] Comment on above: Performed By: #### V ITAD #### [facility] [address] [place] [address] Dr. Benito Schwartz POINT OF CARE GLUCOSEon 02-14 Glucose [Mass/Vol] 124 mg/dL Critically high 74-106 [facility] Comment on above: Performed By: #### B 12FOL, FETIBC #### [facility] [address] [address] [address] Benito Schwartz PROF CHEM 8 (BAS METB)on Anion gap [Moles/Vol] 13.1 mmol/L Normal [facility] Comment on above: Performed By: #### B 12FOL, FETIBC #### [facility] [address] [address] [address] Benito Schwartz Calcium [Mass/Vol] 9.2 mg/dL Normal 8.5-10.1 [facility] Comment on above: Performed By: #### B 12FOL, FETIBC #### [facility] [address] [address] [address] Benito Schwartz Chloride [Moles/Vol] 105 mmol/L Normal 98-107 [facility] Comment on above: Performed By: #### B 12FOL, FETIBC #### [facility] [address] [address] [address] Benito Schwartz CO2 [Moles/Vol] 28.6 mmol/L Normal 21.0-32.0 [facility] Comment on above: Performed By: #### B 12FOL, FETIBC #### [facility] [address] [address] [address] Benito Schwartz Creatinine [Mass/Vol] 2.22 mg/dL Critically high 0.70-1.30 [facility] Comment on above: Performed By: #### B 12FOL, FETIBC #### [facility] [address] [address] [address] Benito Schwartz EGFR-AF ERITREAN 35 mL/min/1.73m2 Critically low >=60 [facility] Comment on above: Performed By: #### B 12FOL, FETIBC #### [facility] [address] [address] [address] Benito Schwartz EGFR-NON AF ERITREAN 29 mL/min/1.73m2 Critically low >=60 [facility] Comment on above: Performed By: #### B 12FOL, FETIBC #### [facility] [address] [place] [address] Dr. Benito Schwartz Glucose [Mass/Vol] 110 mg/dL Critically high 74-106 [facility] Comment on above: Performed By: #### B 12FOL, FETIBC #### [facility] [address] [place] [address] Dr. Benito Schwartz Potassium [Moles/Vol] 3.7 mmol/L Normal 3.5-5.1 [facility] Comment on above: Performed By: #### B 12FOL, FETIBC #### [facility] [address] [place] [address] Dr. Benito Schwartz Sodium [Moles/Vol] 143 mmol/L Normal 136-145 [facility] Comment on above: Performed By: #### B 12FOL, FETIBC #### [facility] [address] [place] [address] Dr. eBnito Schwartz Urea nitrogen [Mass/Vol] 66.0 mg/dL Critically high 7.0-18.0 [facility] Comment on above: Performed By: #### B 12FOL, FETIBC #### [facility] [address] [place] [address] Dr. Benito Schwartz Urea nitrogen/Creatinine [Mass ratio] 29.7 mg/mg Normal [facility] Comment on above: Performed By: #### B 12FOL, FETIBC #### [facility] [address] [place] [address] Dr. Benito Schwartz CBC AUTO DIFFon 03-06-2022 BASO # 0.0 103/ul Normal 0.0-0.1 [facility] Comment on above: Performed By: #### B 12FOL, FETIBC #### [facility] [address] [place] [address] Dr. Benito Schwartz Basophils/100 WBC (Bld) 0.2 % Normal 0.2-2.0 [facility] Comment on above: Performed By: #### B 12FOL, FETIBC #### [facility] [address] [place] [address] Dr. Benito Schwartz EO # 0.1 103/ul Normal 0.0-0.7 [facility] Comment on above: Performed By: #### B 12FOL, FETIBC #### [facility] [address] [place] [address] Dr. Benito Schwartz Eosinophils/100 WBC (Bld) 2.4 % Normal 0.9-7.0 [facility] Comment on above: Performed By: #### B 12FOL, FETIBC #### [facility] [address] [place] [address] Dr. Benito Schwartz Erythrocyte distribution width (RBC) [Ratio] 13.8 % Normal 11.0-15.0 [facility] Comment on above: Performed By: #### B 12FOL, FETIBC #### [facility] [address] [place] [address] Dr. Benito Schwartz Hematocrit (Bld) [Volume fraction] 27.7 % Critically low 42.0-54.0 [facility] Comment on above: Performed By: #### B 12FOL, FETIBC #### [facility] [address] [place] [address] Dr. Benito Schwartz Hemoglobin (Bld) [Mass/Vol] 8.7 g/dL Critically low 14.0-18.0 [facility] Comment on above: Performed By: #### B 12FOL, FETIBC #### [facility] [address] [place] [address] Dr. Benito Schwartz IG # 0.02 10e3/ul Normal 0.00-0.03 [facility] Comment on above: Performed By: #### B 12FOL, FETIBC #### [facility] [address] [place] [address] Dr. Benito Schwartz IG % 0.3 % Normal 0.0-0.5 [facility] Comment on above: Performed By: #### B 12FOL, FETIBC #### [facility] [address] [address] [address] Benito Schwartz LYMPH # 1.0 103/ul Critically low 1.2-3.8 [facility] Comment on above: Performed By: #### B 12FOL, FETIBC #### [facility] [address] [place] [address] Dr. Benito Schwartz Lymphocytes/100 WBC (Bld) 16.7 % Critically low 20.5-60.0 [facility] Comment on above: Performed By: #### B 12FOL, FETIBC #### [facility] [address] [address] [address] Benito Schwartz MANUAL DIFF REQ NO Normal [facility] Comment on above: Performed By: #### B 12FOL, FETIBC #### [facility] [address] [place] [address] Dr. Benito Schwartz MCH (RBC) [Entitic mass] 29.1 pg Normal 25.9-34.0 [facility] Comment on above: Performed By: #### B 12FOL, FETIBC #### [facility] [address] [place] [address] Dr. Benito Schwartz MCHC (RBC) [Mass/Vol] 31.4 g/dL Normal 29.9-35.2 [facility] Comment on above: Performed By: #### B 12FOL, FETIBC #### [facility] [address] [place] [address] Dr. Benito Schwartz MCV (RBC) [Entitic vol] 92.6 fL Normal 80.0-94.0 [facility] Comment on above: Performed By: #### B 12FOL, FETIBC #### [facility] [address] [place] [address] Dr. Benito Schwartz MONO # 0.9 103/ul Critically high 0.3-0.8 [facility] Comment on above: Performed By: #### B 12FOL, FETIBC #### [facility] [address] [place] [address] Dr. Benito Schwartz Monocytes/100 WBC (Bld) 15.3 % Critically high 1.7-12. 0 [facility] Comment on above: Performed By: #### B 12FOL, FETIBC #### [facility] [address] [place] [address] Dr. Benito Schwartz NEUT # 3.7 103/ul Normal 1.4-6.5 [facility] Comment on above: Performed By: #### B 12FOL, FETIBC #### [facility] [address] [place] [address] Dr. Benito Schwartz Neutrophils/100 WBC (Bld) 65.1 % Normal 43.0-75.0 [facility] Comment on above: Performed By: #### B 12FOL, FETIBC #### [facility] [address] [place] [address] Dr. Benito Schwartz Platelet mean volume (Bld) [Entitic vol] 9.7 fL Normal 9.5-13.5 [facility] Comment on above: Performed By: #### B 12FOL, FETIBC #### [facility] [address] [place] [address] Dr. Benito Schwartz PLT 205 103/ul Normal 150-450 [facility] Comment on above: Performed By: #### B 12FOL, FETIBC #### [facility] [address] [place] [address] Dr. Benito Schwartz RBC 2.99 106/ul Critically low 4.70-6.10 [facility] Comment on above: Performed By: #### B 12FOL, FETIBC #### [facility] [address] [place] [address] Dr. Benito Schwartz WBC 5.7 103/ul Normal 4.0-11.0 [facility] Comment on above: Performed By: #### B 12FOL, FETIBC #### [facility] [address] [place] [address] HEAD WO CONon [...] by: ANTHONY TRACEY Date: 2022-03-06 12:33 Normal [facility] IRON AND TIBCon 03-06-2022 % SATURATION 24.7 % Normal [facility] Comment on above: Performed By: #### B 12FOL, FETIBC #### [facility] [address] [place] [address] Dr. Benito Schwartz Iron [Mass/Vol] 55.0 ug/dL Critically low 65.0-175.0 [facility] Comment on above: Performed By: #### B 12FOL, FETIBC #### [facility] [address] [place] [address] Dr. Benito Schwartz TIBC DIRECT 223.0 ug/dL Critically low 250.0-450.0 [facility] Comment on above: Performed By: #### B 12FOL, FETIBC #### [facility] [address] [place] [address] Dr. Benito Schwartz POINT OF CARE GLUCOSEon 02-14 Glucose [Mass/Vol] 145 mg/dL Critically high 74-106 [facility] Comment on above: Performed By: #### V ITAD #### [facility] [address] [place] [address] Dr. Benito Schwartz PROF CHEM 8 (BAS METB)on Anion gap [Moles/Vol] 14.6 mmol/L Normal [facility] Comment on above: Performed By: #### V ITAD #### [facility] [address] [place], [place] [id number] Dr. Benito Schwartz Calcium [Mass/Vol] 9.0 mg/dL Normal 8.5-10.1 [facility] Comment on above: Performed By: #### V ITAD #### [facility] [address] [place] [address] Dr. Benito Schwartz Chloride [Moles/Vol] 106 mmol/L Normal 98-107 [facility] Comment on above: Performed By: #### V ITAD #### [facility] [address] [address] [address] Benito Schwartz CO2 [Moles/Vol] 26.3 mmol/L Normal 21.0-32.0 [facility] Comment on above: Performed By: #### V ITAD #### [facility] [address] [place] [address] Dr. Benito Schwartz Creatinine [Mass/Vol] 2.40 mg/dL Critically high 0.70-1.30 [facility] Comment on above: Performed By: #### V ITAD #### [facility] [address] [place] [address] Dr. Benito Schwartz EGFR-AF ERITREAN 32 mL/min/1.73m2 Critically low >=60 [facility] Comment on above: Performed By: #### V ITAD #### [facility] [address] [place] [address] Dr. Benito Schwartz EGFR-NON AF ERITREAN 26 mL/min/1.73m2 Critically low >=60 [facility] Comment on above: Performed By: #### V ITAD #### [facility] [address] [place] [address] Dr. Benito Schwartz Glucose [Mass/Vol] 108 mg/dL Critically high 74-106 [facility] Comment on above: Performed By: #### V ITAD #### [facility] [address] [place] [address] Dr. Benito Schwartz Potassium [Moles/Vol] 3.9 mmol/L Normal 3.5-5.1 [facility] Comment on above: Performed By: #### V ITAD #### [facility] [address] [address] [address] Benito Schwartz Sodium [Moles/Vol] 143 mmol/L Normal 136-145 [facility] Comment on above: Performed By: #### V ITAD #### [facility] [address] [place] [address] Dr. Benito Schwartz Urea nitrogen [Mass/Vol] 72.0 mg/dL Critically high 7.0-18.0 [facility] Comment on above: Performed By: #### V ITAD #### [facility] [address] [place] [address] Dr. Benito Schwartz Urea nitrogen/Creatinine [Mass ratio] 30.0 mg/mg Normal [facility] Comment on above: Performed By: #### V ITAD #### [facility] [address] [place] [address] Dr. Benito Schwartz VIT B12 AND FOLATEon 022 Cobalamin (Vitamin B12) [Mass/Vol] 432.0 pg/mL Normal 193.0-986.0 [facility] Comment on above: Performed By: #### B 12FOL, FETIBC #### [facility] [address] [place] [address] Dr. Benito Schwartz FOLATE 21.60 ng/mL Normal 8.60-58.90 [facility] Comment on above: Performed By: #### B 12FOL, FETIBC #### [facility] [address] [place] [address] Dr. Benito Schwartz BNPon 03-05-2022 Natriuretic peptide B (Bld) [Mass/Vol] 6910.0 pg/mL Critically high <=1,800.0 [facility] Comment on above: Result Comment: Test Repeated. Critical Value Verified Performed By: #### B 12FOL, FETIBC #### [facility] [address] [place] [address] Dr. Benito Schwartz CBC AUTO DIFFon 03-05-2022 BASO # 0.0 103/ul Normal 0.0-0.1 [facility] Comment on above: Performed By: #### F T4, PSASC #### [facility] [address] [place] [address] Dr. Benito Schwartz Basophils/100 WBC (Bld) 0.3 % Normal 0.2-2.0 [facility] Comment on above: Performed By: #### F T4, PSASC #### [facility] [address] [place] [address] Dr. Benito Schwartz EO # 0.2 103/ul Normal 0.0-0.7 [facility] Comment on above: Performed By: #### F T4, PSASC #### [facility] [address] [place] [address] Dr. Benito Schwartz Eosinophils/100 WBC (Bld) 2.7 % Normal 0.9-7.0 [facility] Comment on above: Performed By: #### F T4, PSASC #### [facility] [address] [place] [address] Dr. Benito Schwartz Erythrocyte distribution width (RBC) [Ratio] 13.7 % Normal 11.0-15.0 [facility] Comment on above: Performed By: #### F T4, PSASC #### [facility] [address] [place] [address] Dr. Benito Schwartz Hematocrit (Bld) [Volume fraction] 27.9 % Critically low 42.0-54.0 [facility] Comment on above: Performed By: #### F T4, PSASC #### [facility] [address] [place] [address] Dr. Benito Schwartz Hemoglobin (Bld) [Mass/Vol] 8.9 g/dL Critically low 14.0-18.0 [facility] Comment on above: Performed By: #### F T4, PSASC #### [facility] [address] [place] [address] Dr. Benito Schwartz IG # 0.01 10e3/ul Normal 0.00-0.03 [facility] Comment on above: Performed By: #### F T4, PSASC #### [facility] [address] [place] [address] Dr. Benito Schwartz IG % 0.2 % Normal 0.0-0.5 [facility] Comment on above: Performed By: #### F T4, PSASC #### [facility] [address] [address] [address] Benito Schwartz LYMPH # 1.3 103/ul Normal 1.2-3.8 [facility] Comment on above: Performed By: #### F T4, PSASC #### [facility] [address] [address] [address] Benito Schwartz Lymphocytes/100 WBC (Bld) 21.5 % Normal 20.5-60.0 [facility] Comment on above: Performed By: #### F T4, PSASC #### [facility] [address] [address] [address] Benito Schwartz MANUAL DIFF REQ NO Normal [facility] Comment on above: Performed By: #### F T4, PSASC #### [facility] [address] [place] [address] Dr. Benito Schwartz MCH (RBC) [Entitic mass] 29.5 pg Normal 25.9-34.0 [facility] Comment on above: Performed By: #### F T4, PSASC #### [facility] [address] [address] [address] Benito Schwartz MCHC (RBC) [Mass/Vol] 31.9 g/dL Normal 29.9-35.2 [facility] Comment on above: Performed By: #### F T4, PSASC #### [facility] [address] [address] [address] Benito Schwartz MCV (RBC) [Entitic vol] 92.4 fL Normal 80.0-94.0 [facility] Comment on above: Performed By: #### F T4, PSASC #### [facility] [address] [address] [address] Benito Schwartz MONO # 1.0 103/ul Critically high 0.3-0.8 [facility] Comment on above: Performed By: #### F T4, PSASC #### [facility] [address] [address] [address] Benito Schwartz Monocytes/100 WBC (Bld) 16.3 % Critically high 1.7-12. 0 [facility] Comment on above: Performed By: #### F T4, PSASC #### [facility] [address] [place] [address] Dr. Benito Schwartz NEUT # 3.5 103/ul Normal 1.4-6.5 [facility] Comment on above: Performed By: #### F T4, PSASC #### [facility] [address] [place] [address] Dr. Benito Schwartz Neutrophils/100 WBC (Bld) 59.0 % Normal 43.0-75.0 [facility] Comment on above: Performed By: #### F T4, PSASC #### [facility] [address] [place] [address] Dr. Benito Schwartz Platelet mean volume (Bld) [Entitic vol] 9.5 fL Normal 9.5-13.5 [facility] Comment on above: Performed By: #### F T4, PSASC #### [facility] [address] [place] [address] Dr. Benito Schwartz PLT 213 103/ul Normal 150-450 [facility] Comment on above: Performed By: #### F T4, PSASC #### [facility] [address] [place] [address] Dr. Benito Schwartz RBC 3.02 106/ul Critically low 4.70-6.10 [facility] Comment on above: Performed By: #### F T4, PSASC #### [facility] [address] [place] [address] Dr. Benito Schwartz WBC 5.9 103/ul Normal 4.0-11.0 [facility] Comment on above: Performed By: #### F T4, PSASC #### [facility] [address] [place] [address] Dr. Benito Schwartz CULTURE BLOODon 03-05-2022 Microscopic examination of blood, culture Culture Observations: NO GROWTH AT 5 DAYS. Normal [facility] Comment on above: Performed By: #### V ITAD #### [facility] [address] [place] [address] Dr. Benito Schwartz Covid-19 PCR (CVDTB)on 02-14 SARS-CoV-2 (COVID-19) RNA ZITA+probe Ql (Unsp spec) Not detected Normal NOT DETECTED [facility] Comment on above: Result Comment: This test is not yet approved or cleared by the [place] FDA. When there are no FDA-approved or cleared tests available, and other criteria are met, FDA can make tests available under an emergency access mechanism called an Emergency Use Authorization (EUA). The EUA for this test is supported by the [place] of Health and Human Service's (HHS's) declaration [...] SARS-CoV-2. Performed By: #### C BC #### [facility] [address] [place] [address] Dr. Benito Schwartz FREE T4on 03-05-2022 Free T4 [Mass/Vol] ng/dL Critically high 0.76-1.46 [facility] Comment on above: Performed By: #### C BC #### [facility] [address] [place] [address] Dr. Benito Schwartz LACTATE/LACTIC ACIDon 2021 Lactate [Moles/Vol] 1.2 mmol/L Normal 0.4-1.9 [facility] Comment on above: Performed By: #### F T4 #### [facility] [address] [place] [address] Dr. Benito Schwartz PROF 14(COMP METB)on 022 Albumin [Mass/Vol] 2.9 g/dL Critically low 3.4-5.0 [facility] Comment on above: Performed By: #### F T4, PSASC #### [facility] [address] [address] [address] Benito Schwartz Albumin/Globulin [Mass ratio] 0.8 {ratio} Normal [facility] Comment on above: Performed By: #### F T4, PSASC #### [facility] [address] [address] [address] Benito Schwartz ALP [Catalytic activity/Vol] 107 U/L Normal 46-116 [facility] Comment on above: Performed By: #### F T4, PSASC #### [facility] [address] [address] [address] Benito Schwartz ALT [Catalytic activity/Vol] 25 U/L Normal 16-63 [facility] Comment on above: Performed By: #### F T4, PSASC #### [facility] [address] [address] [address] Benito Schwartz Anion gap [Moles/Vol] 14.2 mmol/L Normal [facility] Comment on above: Performed By: #### F T4, PSASC #### [facility] [address] [address] [address] Benito Schwartz AST [Catalytic activity/Vol] 17 U/L Normal 15-37 [facility] Comment on above: Performed By: #### F T4, PSASC #### [facility] [address] [address] [address] Benito Schwartz Bilirubin [Mass/Vol] 0.5 mg/dL Normal 0.2-1.0 [facility] Comment on above: Performed By: #### F T4, PSASC #### [facility] [address] [address] [address] Benito Schwartz Calcium [Mass/Vol] 9.1 mg/dL Normal 8.5-10.1 [facility] Comment on above: Performed By: #### F T4, PSASC #### [facility] [address] [address] [address] Benito Schwartz Chloride [Moles/Vol] 104 mmol/L Normal 98-107 [facility] Comment on above: Performed By: #### F T4, PSASC #### [facility] [address] [address] [address] Benito Schwartz CO2 [Moles/Vol] 27.0 mmol/L Normal 21.0-32.0 [facility] Comment on above: Performed By: #### F T4, PSASC #### [facility] [address] [address] [address] Benito Schwartz Creatinine [Mass/Vol] 2.97 mg/dL Critically high 0.70-1.30 [facility] Comment on above: Performed By: #### F T4, PSASC #### [facility] [address] [address] [address] Benito Schwartz EGFR-AF ERITREAN 25 mL/min/1.73m2 Critically low >=60 [facility] Comment on above: Performed By: #### F T4, PSASC #### [facility] [address] [address] [address] Benito Schwartz EGFR-NON AF ERITREAN 21 mL/min/1.73m2 Critically low >=60 [facility] Comment on above: Performed By: #### F T4, PSASC #### [facility] [address] [address] [address] Benito Schwartz Globulin (S) [Mass/Vol] 3.6 g/dL Normal [facility] Comment on above: Performed By: #### F T4, PSASC #### [facility] [address] [address] [address] Benito Schwartz Glucose [Mass/Vol] 162 mg/dL Critically high 74-106 [facility] Comment on above: Performed By: #### F T4, PSASC #### [facility] [address] [address] [address] Benito Schwartz Potassium [Moles/Vol] 4.2 mmol/L Normal 3.5-5.1 [facility] Comment on above: Performed By: #### F T4, PSASC #### [facility] [address] [address] [address] Benito Schwartz Protein [Mass/Vol] 6.5 g/dL Normal 6.4-8.2 [facility] Comment on above: Performed By: #### F T4, PSASC #### [facility] [address] [address] [address] Benito Schwartz Sodium [Moles/Vol] 141 mmol/L Normal 136-145 [facility] Comment on above: Performed By: #### F T4, PSASC #### [facility] [address] [place] [address] Dr. Benito Schwartz Urea nitrogen [Mass/Vol] 74.0 mg/dL Critically high 7.0-18.0 [facility] Comment on above: Performed By: #### F T4, PSASC #### [facility] [address] [place] [address] Dr. Benito Schwartz Urea nitrogen/Creatinine [Mass ratio] 24.9 mg/mg Normal [facility] Comment on above: Performed By: #### F T4, PSASC #### [facility] [address] [place] [address] Dr. Benito Schwartz TROPONIN, HIGH SENSITIVITYon 03-05-2022 HSTROP 39.6 pg/mL Normal 4.0-76.1 [facility] Comment on above: Result Comment: CUT- OFF POINTS HAVE BEEN ESTABLISHED BASED ON THE FOURTH UNIVERSAL DEFINITIONS OF MYOCARDIAL INFARCTION. THE UPPER REFERENCE LIMIT (URL) OF TROPONIN, DEFINED THE 99TH PERCENTILE OF cTnI DISTRIBUTION IN A REFERENCE POPULATION, HAS BEEN CONFIRMED THE DECISION THRESHOLD FOR CT DIAGNOSIS. Performed By: #### F T4, PSASC #### [facility] [address] [place] [address] Dr. Benito Schwartz TSHon 03-05-2022 TSH Qn m[IU]/L Critically low 0.358-3.740 [facility] Comment on above: Performed By: #### F T4 #### [facility] [address] [place] [address] Dr. Benito Schwartz TSH RANGE SEE BELOW Normal [facility] Comment on above: Result Comment: <0.3 4 UIU/ml HYPERTHYROID 0.34-5.60 UIU/ml EUTHYROID >5.60 UIU/ml HYPOTHYROID Performed By: #### F T4 #### [facility] [address] [address] [address] Benito Schwartz US THYROIDon 03-04-2022 US [...] MALENA RIOS Date: 2022-03-04 13:56 Normal [facility] - Chemistry and C hemistry - challengeOrdered By: Enrrique Mckeon on 02-22-2022 Natriuretic peptide B (Bld) [Mass/Vol] 251.0 pg/mL High 5-100 [facility] TSH DL <= 0.005 mIU/L QnOrde red By: Enrrique Mckeon on 02-22-2022 TSH Qn m[IU]/L Low 0.45-5.33 [facility] Coding Summaryon 07-08-2021 Coding Summary HTMLBase 64 BmccpkmqISv1aDr+PGhl YWQ+AM0DGWKxG18ojPDg dR0NE8tWSG6ESJBHJAAK ZA2GWO8sgWT8FKzcC3Vv biAv RncxbGYmVO91RLu2BUT2 cYceYCwooA9ddSVjR1y0 HuSzZG96mT65PGofFUIl RwD6NqCfxcnoaCPi A7tcOsYydTJvDjg+PHRh YmxlIHdpZHRoPScxMDAl IcEfkAqzFB2yUv2iHVEc LWNvbGxhcHNlOiBj i1siFEBmIRdsHG9ymLsc Q2ClbZU8NICkp9i8Vg34 dHI+WJDhMUV1mTfcAWrs y316VbRjk7fhWUC3 kCEnWLguTZW5O19hl1Q7 QTJkTYYaMKZ6mEM0zC9x lJlerrwoH8QmtHHkGtJ5 MAF0rRHaoW1ngHfu zuhkmC8mHlp+A02UCN1O APGCVC9ZJcz8H5RjBkkd dHI+WE90OECzAM16wERl iUMnl6wfoNl7PdEc QDWzXOX7zBbeXUymv5Uo GVNoS61ilWOlf9G0XCKa uPblyXRwBwLoxBR4qX2u MDeeogysf3bosdhv Rbqvg1urus76nV80J57x AEoiZSKnTLJ2VKDuLBOl gVzetj4tuZ4kUa4+IDxj p0hvo7mkfNk7GeKf YJBbrvXlxFewRQZ8x6Fd Eb72Q3TmiAdag5SjHch0 yl86aPMgn5O0iYA7HRlq QSEuxF5aEJdmEuH6 SEJxRzXsiK36oCGpDAci St6ktQlbjWdgPT4cRTWb gpecRECklA2xHTXylNVp wRnrUS5dIDTgmgjc u290IfHsHVK4XCXqkMUs F9ZtnX7eLsAwOPNvMBOj G6UjnAHpWCldC575KCkr GvZ4JFJorbLcN7Xt XZPqlRjbLfW8b8W2Sy2Q g9GaldfsGOL2MUccSZU3 ChXuGzObLeL9P3LxAkj9 HCOfgPyrWC7yP7Wm ZJUjowaddbwqsGR4LTBd HAMuyO80xLRxNDqeWj6y j8J5k331UVGrRZQjsK39 Ui1ydRchJSIufDBP pO2ofsujw7atlbmpPsVp OTJpPVt5XXs1GSGznEks NxRcHVL5LaM4UZT7uZHi dZ8pfLoxvhlneJ4j Oyc+A03jwF1yBPX3SDE1 wxakHMUlwyRkQT51CT08 E2AsChkzpOAtyRX+PGRp twNpzLxbJU7vCmHl j8lmg0XyWOdoD3YvKDBw JWkcFxu9IYLnHUD2rGV2 eA8bVRIuQYjpa8J2lFO0 E1ElewZeyi4eu3ag UCSpQHjoY33mjGWfv1R5 BKYkcXY2VHIicBfoOfKn pT33Sqa+THOigXnmz1Fk Sejnc6fqc5xezIq7 IjMwJSIgdmFsaWduPSJ0 o4MwRb41P38aZDdgVOQv ZFCpSVQjIUFkzHockz7v gZ4rEh9+PGNvbCB3 eWQ8fD2gEAWdKsK9AFjm U730EnMvcYOuNynvo0pw v6rurOd2NwRmFJYofsNl uPsvNBM6b1UtOd52 R26bHYjlMMKhYUCyCCNg XFXjhLcwme2foJ1fAv9+ AN9id8dzup38uR19uTJ+ WAFqAMK6qAjlZSeh RIIcvK2rUErpQiE9HIIv PsNdvX76pSSfPGqzFo6h tDzzhUocHO7rNWJjsong w430RrWfx1nwIHWf pELrSOdhUUQ0Z81yg7B6 EYHyFRJyKSD4yAH6hS9k bGlnbjogbGVmdDsgdmVy vUcpOJfnQDocY575 IHRvcDsnPlBhdGllbnQg MuCrHOp5P7RoKfb1PEQu qOheKI3uyCNpRPxkRa6t qNhiuMfeJS1sLGRn zxvlt595MiApm2ulUQFh mKFuPOolCYQ1Q06ur4B3 MKLvZMLuYCR9iUF6lI5h bGlnbjogbGVmdDsg woRkxBobSVdkNLbeA443 IHRvcDsnPkJpcnRoIERh pIQ8NU42AR16lTKya5U5 oVK6L7WtOZZmcyfw afiyeHW6YEBvKMNmgS63 Yq0fkPhbYy1xPQNtPYT7 ROXuvIYkN3ThaI8xPlHb ORJkJLUtX8GcoCKq BCvdS365OByzBoR1PIUn bbNjD2QsLCDwqPgoOqF5 y1G2Rd1PX7U0AV88YX92 sWDqn2U7oAK3C0Wh RILdlqsolofxzDU4KGMt QUBzhT91Sp3eaHdxGd1a JIZpMNT4AYEekMKqJ6Yg aX0rPnYtULDkLUZq J7XtuCAiICggZ319YDjc PjC6OQGfdoPiV9OuHWXn jGweGkD5f4X7Uu7UUNs5 KR45BS76uQWrq7C9 jDL7C0FeRTDvynbqfhlr iTB6ZGTdTKXrmP74Wl1n hKmpWc0rXKKiLSF8LSAb bZZeN6GxmZ6cCxTl MBFtEGWwQ2RojOIvSUrm R104RElcDvB2EOGiimUo Q7HaGVClnYsjCjU4o9Z8 Sy4UDQPoRP81TUI9 zPZ4TO68SR15I4KuOvej dGFibGU+PHRhYmxlIHdp ZHRoPScxMDAlJyBzdHls IS2wPn0uEBSxAANc vZyeyFNeRiAlx3exZFRs TWcwDS8ehMzyC7MyxKP6 UNHrf0r2Jt57K60iA6Lo dXA+EGRlpAV4dYA1 fL6lGaQxIcP7KHoaE522 TuMujXCiKmuuo4uix0gy xCs5LiX4AGOtpiHznBid QZU3m9SiZw15W01r IHdpZHRoPSIxNSUiIHZh hAyhhz0adC1jZr8+PGNv hZR3pLK0aJ4tJhRkOxZ5 RCqqM950LrVryXKh Ecfqt6ncl1bxcYd1RhJp WMBarbXlaAzbYTJ4v8Ek Rd37U1PznZexy5ZvHtx8 en01nCSnh4P3nRD8 Q0EqALGcurrbeVYhpXyx LF3qWCTectbfAONamC8y VIIlA9o5SqJxPmS0XUyl Z5DlmtB9BVXinTLv OXucEPF6Y66og8R1YIOh IQOnBLN7eJT7eA2qwMwv bjogbGVmdDsgdmVydGlj SOacVCrtN089CQPt bYgiJZJadB2vQCCspPAg wXijTS2tUIGhpdofRnGC TBMTIqtsPtFXUtu5S4Qy Yal7YEScgItrXY3u cPSnZMbdLq2zbLdxvJqu AC7jOEArbinpCIAhcN7p PNAvsSVxlBpkRL3sWQLj fmbds813BdCoFYD8 UDNwhBZqK7QxxT0hOqAj EPSbUZZxU4DzjZCcMAbi J617KYxwVqB2FPDcyxSw J7VqSHGxtJxyFbE0 k8M0Kh2nMw3wTH3oEOBr WM71EO87lXMeo5X7wLW0 O4ZnBWJsmrsouxenzOU2 KRIpAGDseF48yLYq HEmsSv7je9V8x368DOJf BXFvzU85Dg6reKppMYYs eZFLxB1jxagwx0bvaukk UbWlHJDiHBf7ITp0 HBAerTcaCsHyEHG5DnC4 GAY4yZNekD2goErmoldk jW4uLwy+NzkgWWVhcnM8 O3PiJuf9CVIruXym OI0ozXIiZSdhKa6idJrm rWipKK6jKMFkgcyqYBOc pY4xVVXgtLXehTfkTJ3d DYWyvqbhq730YmHd RCY4JBMtbPRlF2LobL5n XgEoNHTpZRLbL8TkcZUf MNiuQ581RSzfOtY5DINk lqNgG8MxFPLhmXdy LkV6g3Q0Iq7KTZpWEB10 CR34pAUyr0P5jDY0J4Pl LALnaugctwfwcOO9AAXp RMBqsT31xGAtGKrw Vt0hi4I9y618AARvWOLa tC90Gf5fqGnfICOroZWB zE4kpfyrn7nlsgtaPxCz OXJwHJp9ONv2ZYAi gGsbTqTpPUP1ZnT4ECO0 iQLthA0fvSjdrrluwQ4q Oyc+A9U9T9MmKiygbGD+ DP16HDNjBZ23iGCc lCPrd6esvNt1OwSgRERa QVQ4eNqdDRqmq2QxZIGq X87wiUUth7W4MQOxpBos hGZdPbAdvQP9tO0h YZbfzhmkh1vouqhpXiyi j8nbei11lZ66A01sGVkg ZHRoPSIzMCUiIHZhbGln qp0ewK7kJs9+PGNv sZT7qZO3gN5aIdFxNaO6 ZJuzV534PiWsiYPfPlpg l9vlk4gbjQi4ErZlBZJj vyZvbGxkYMI3i9Mt Mz63K25gDCqzLCZvESXm KPYdVEHwcLwgwq1ojZ5q Ii8+JC9ll3mkci77eC71 dHI+BZVhFRG3mAvf HZazMKIaiD1gBGmrQqM5 WVMcEyUxiZ13qGRlLXlx Sm9uiYbslKoyUT7cOALe ecels948BjRhi4ex JEUbpNWhTBamAOX1B59r m1R8DJNpHDKcBVS7jUE1 sW3gbKwxkolzfHZmqYbv dmVydGljYWwtYWxp L630BDXwiSfbGhWjoKQu F0bfogCSRM1eCbbnjCG+ EXFqTGB5cIsmJYklYQUp gR1fVBHvL2a5FkMf ArR2SWveZ1SqwmX0EJHo qFNsVBOziDADaT0kmzoq s6sdmaoaGtJgIFMkCBe7 MSk9TQBcvJepJrQy QSZ1JiE9OCA2fPTooZ2x aYqllfmqbC5fXri+RklO OjwvdGQ+ISXoQFR2hUqf HLwzMKMxuH7nNDMb B9e0EoIpNwS7UHdaE5Ha urE1EZXthQKvCJGbfIFF xE4pweyxh8iugpmkMbPc QXAtFVb0EPm7QMKm tLurQxXwNCY2IeE8AOQ7 mDHenY5eyMvzgpsezW3e Oyc+TVJOOjwvdGQ+PHRk OZC2uGroZIcqXXZh jX0zBSZhY4f6WiWdMpX0 SVodP1AduzQ9XKLmkMCz WBHcxXEWrC5eqsori1me cjogIzAwMDAwMDt0 SDp8JKPkzQnzXjNdVTK8 PyB7LKD9fCFnqR0xmBww opzmxU5gCka+DIF7JQZ4 OG15IQ32C3ZjWmdh dGFibGU+PHRhYmxlIHdp ZHRoPScxMDAlJyBzdHls LC5xPp4tIESiWLGvzPjt yYDgDuWko3blARWo ZTs (more content not included)... [facility] Provider Orderson 07-05-2021 Provider Orders [id number] [facility] Creatinine Lvlon 07-02-2021 eGFR Non AA 29 mL/min/1.73m2 Invalid Interpretation Code [facility] Comment on above: Performed By: #### [id number] #### [facility] (DEFAULT) [address] [place] [address] eGFR AA 35 mL/min/1.73m2 Invalid Interpretation Code [facility] Comment on above: Result Comment: Feed Handler hilda Kidney disease could be indicated at eGFRs of less than 60 ml/min/1.73m2. Kidney Failure is indicated at less than 15 ml/min/1.73m2 Performed By: #### [id number] #### [facility] (DEFAULT) [address] [place] [address] Creatinine [Mass/Vol] 2.19 mg/dL High 0.90-1.30 [facility] Comment on above: Performed By: #### [id number] #### [facility] (DEFAULT) [address] [place] [address] Vital Signs Date Time Vital Sign Value Performing Clinician Facility 08-08-2024 10:27-0400 Diastolic blood pressure 80 mm[Hg] Avery Syed MD Work Phone: [facility] 08-08-2024 10:27-0400 Heart rate 72 /min Avery Syed MD Work Phone: [facility] 08-08-2024 10:27-0400 Systolic blood pressure 150 mm[Hg] Avery Syed MD Work Phone: [facility] 08-08-2024 10:25-0400 Body height 180.3 cm Avery Syed MD Work Phone: [facility] 08-08-2024 10:25-0400 Body mass index (BMI) [Ratio] 30.52 kg/m2 Avery Syed MD Work Phone: [facility] 08-08-2024 10:25-0400 Body weight 99.25 kg Avery Syed MD Work Phone: [facility] 07-09-2024 10:33-0400 Diastolic blood pressure 74 mm[Hg] Randall Pancho DO Work Phone: [facility] 07-09-2024 10:33-0400 Heart rate 70 /min Randall Pancho DO Work Phone: [facility] 07-09-2024 10:33-0400 SaO2% (BldA) [Mass fraction] 93 % Randall Pancho DO Work Phone: [facility] 07-09-2024 10:33-0400 Systolic blood pressure 136 mm[Hg] Randall Pancho DO Work Phone: [facility] 04-22-2024 10:44-0400 Body height 180.34 cm DO Arnie Ball Work Phone: [facility] 04-22-2024 10:44-0400 Body mass index (BMI) [Ratio] 30.2 kg/m2 DO Arnie Ball Work Phone: [facility] 04-22-2024 10:44-0400 Body weight 98.14 kg DO Arnie Ball Work Phone: [facility] 04-22-2024 10:44-0400 Diastolic blood pressure 69 mm[Hg] DO Arnie Ball Work Phone: [facility] 04-22-2024 10:44-0400 Heart rate 73 /min DO Arnie Ball Work Phone: [facility] 04-22-2024 10:44-0400 Respiratory rate 12 /min DO Arnie Ball Work Phone: [facility] 04-22-2024 10:44-0400 Systolic blood pressure 135 mm[Hg] DO Arnie Ball Work Phone: [facility] 03-01-2024 11:11-0400 Body height 180.34 cm DO Arnie Ball Work Phone: [facility] 03-01-2024 11:11-0400 Body mass index (BMI) [Ratio] 30.1 kg/m2 DO Arnie Ball Work Phone: [facility] 03-01-2024 11:11-0400 Body temperature 98 [degF] DO Arnie Ball Work Phone: [facility] 03-01-2024 11:11-0400 Body weight 97.97 kg DO Arnie Ball Work Phone: [facility] 03-01-2024 11:11-0400 Diastolic blood pressure 75 mm[Hg] DO Arnie Ball Work Phone: [facility] 03-01-2024 11:11-0400 Heart rate 67 /min DO Arnie Ball Work Phone: [facility] 03-01-2024 11:11-0400 Respiratory rate 18 /min DO Arnie Ball Work Phone: [facility] 03-01-2024 11:11-0400 SaO2% (BldA) [Mass fraction] 95 % DO Arnie Ball Work Phone: [facility] 03-01-2024 11:11-0400 Systolic blood pressure 158 mm[Hg] DO Arnie Ball Work Phone: [facility] 12-18-2023 10:07-0500 Body height 180.34 cm DO Arnie Ball Work Phone: [facility] 12-18-2023 10:07-0500 Body mass index (BMI) [Ratio] 30.2 kg/m2 DO Arnie Ball Work Phone: [facility] 12-18-2023 10:07-0500 Body weight 98.2 kg DO Arnie Ball Work Phone: [facility] 12-18-2023 10:07-0500 Diastolic blood pressure 76 mm[Hg] DO Arnie Ball Work Phone: [facility] 12-18-2023 10:07-0500 Heart rate 72 /min DO Arnie Ball Work Phone: [facility] 12-18-2023 10:07-0500 Respiratory rate 12 /min DO Arnie Ball Work Phone: [facility] 12-18-2023 10:07-0500 Systolic blood pressure 131 mm[Hg] DO Arnie Ball Work Phone: [facility] 09-01-2023 13:51-0500 Body height 180.34 cm DO Arnie Ball Work Phone: [facility] 09-01-2023 13:51-0500 Body temperature 97.7 [degF] DO Arnie Ball Work Phone: [facility] 09-01-2023 13:51-0500 Body weight 98.02 kg DO Arnie Ball Work Phone: [facility] 09-01-2023 13:51-0500 Diastolic blood pressure 79 mm[Hg] DO Arnie Ball Work Phone: [facility] 09-01-2023 13:51-0500 Heart rate 70 /min DO Arnie Ball Work Phone: [facility] 09-01-2023 13:51-0500 Respiratory rate 20 /min DO Arnie Ball Work Phone: [facility] 09-01-2023 13:51-0500 SaO2% (BldA) [Mass fraction] 96 % DO Arnie Ball Work Phone: [facility] 09-01-2023 13:51-0500 Systolic blood pressure 147 mm[Hg] DO Arnie Ball Work Phone: [facility] 08-22-2023 10:00-0500 Body height Arnie Ball Other [facility] [employer] Other 08-22-2023 10:00-0500 Body mass index (BMI) [Ratio] 29.35 kg/m2 Arnie Ball Other [employer] Other 08-22-2023 10:00-0500 Body weight 98.16 kg Arnie Ball Other [employer] Other 08-22-2023 10:00-0500 Diastolic blood pressure 74 mm[Hg] Arnie Ball Other [employer] Other 08-22-2023 10:00-0500 Respiratory rate 12 /min Arnie Ball Other [employer] Other 08-22-2023 10:00-0500 Systolic blood pressure 135 mm[Hg] Arnie Ball Other [employer] Other 04-20-2023 09:30-0400 Body height Arnie Ball Other [employer] Other 04-20-2023 09:30-0400 Body mass index (BMI) [Ratio] 29.62 kg/m2 Arnie Ball Other [employer] Other 04-20-2023 09:30-0400 Body weight 99.07 kg Arnie Ball Other [employer] Other 04-20-2023 09:30-0400 Diastolic blood pressure 64 mm[Hg] Arnie Ball Other [employer] Other 04-20-2023 09:30-0400 Respiratory rate 12 /min Arnie Ball Other [employer] Other 04-20-2023 09:30-0400 Systolic blood pressure 113 mm[Hg] Arnie Ball Other [employer] Other 12-15-2022 10:00-0500 Body height Arnie Ball Other [employer] Other 12-15-2022 10:00-0500 Body mass index (BMI) [Ratio] 29.81 kg/m2 Arnie Ball Other [employer] Other 12-15-2022 10:00-0500 Body weight 99.7 kg Arnie Ball Other [employer] Other 12-15-2022 10:00-0500 Diastolic blood pressure 70 mm[Hg] Arnie Ball Other [employer] Other 12-15-2022 10:00-0500 Respiratory rate 12 /min Arnie Ball Other [facility] [employer] Other 12-15-2022 10:00-0500 Systolic blood pressure 122 mm[Hg] Arnie Ball Other [facility] [employer] Other 09-02-2022 14:11-0500 Body weight 98.9 kg DO Arnie Ball Work Phone: [facility] 09-02-2022 14:11-0500 Diastolic blood pressure 72 mm[Hg] DO Arnie Ball Work Phone: [facility] 09-02-2022 14:11-0500 Heart rate 60 /min DO Arnie Ball Work Phone: [facility] 09-02-2022 14:11-0500 Respiratory rate 20 /min DO Arnie Ball Work Phone: [facility] 09-02-2022 14:11-0500 SaO2% (BldA) [Mass fraction] 96 % DO Arnie Ball Work Phone: [facility] 09-02-2022 14:11-0500 Systolic blood pressure 153 mm[Hg] DO Arnie Ball Work Phone: [facility] 07-21-2022 10:13-0400 Diastolic blood pressure 64 mm[Hg] DO Arnie Ball Work Phone: [facility] 07-21-2022 10:13-0400 Heart rate 60 /min DO Arnie Ball Work Phone: [facility] 07-21-2022 10:13-0400 Respiratory rate 16 /min DO Arnie Ball Work Phone: [facility] 07-21-2022 10:13-0400 SaO2% (BldA) [Mass fraction] 95 % DO Arnie Ball Work Phone: [facility] 07-21-2022 10:13-0400 Systolic blood pressure 135 mm[Hg] DO Arnie Ball Work Phone: [facility] 07-21-2022 08:10-0400 Body height 180.34 cm DO Arnie Ball Work Phone: [facility] 07-21-2022 08:10-0400 Body temperature 98.2 [degF] DO Arnie Ball Work Phone: [facility] 07-21-2022 08:10-0400 Body weight 90.71 kg DO Arnie Ball Work Phone: [facility] 06-17-2022 10:25-0400 Body temperature 98.2 [degF] DO Arnie Ball Work Phone: [facility] 06-17-2022 10:25-0400 Diastolic blood pressure 58 mm[Hg] DO Arnie Ball Work Phone: [facility] 06-17-2022 10:25-0400 Heart rate 62 /min DO Arnie Ball Work Phone: [facility] 06-17-2022 10:25-0400 Respiratory rate 18 /min DO Arnie Ball Work Phone: [facility] 06-17-2022 10:25-0400 SaO2% (BldA) [Mass fraction] 98 % DO Arnie Ball Work Phone: [facility] 06-17-2022 10:25-0400 Systolic blood pressure 124 mm[Hg] DO Arnie Ball Work Phone: [facility] 06-03-2022 09:55-0400 Body height 180.34 cm DO Arnie Ball Work Phone: [facility] 06-03-2022 09:55-0400 Body weight 92.85 kg DO Arnie Ball Work Phone: [facility] Encounters Encounter Date Encounter Type Care Provider Facility Start: 10-29-2024 ambulatory [facility] Start: 10-17-2024 ambulatory [facility] Start: 10-17-2024 End: 10-17-2024 ambulatory [facility] Start: 10-03-2024 ambulatory [facility] Start: 09-30-2024 ambulatory [facility] Start: 09-17-2024 ambulatory [facility] Start: 09-10-2024 End: 09-10-2024 ambulatory [facility] Start: 09-02-2024 ambulatory [facility] Start: 09-02-2024 Encounter for preprocedural cardiovascular examination [facility] Start: 08-22-2024 End: 08-22-2024 ambulatory Ramesh Rascon Facility:[facility] Start: 08-21-2024 End: 08-21-2024 [employer]amboo [employer] Marilin Clay CCC-A Work Phone: [facility] Start: 08-21-2024 End: 08-21-2024 Bamboo flowsheet Marilin Jay Jay Clay CCC-A Work Phone: [facility] Start: 08-21-2024 End: 08-21-2024 Clinical Support Marilin Clay [facility] Work Phone: [facility] Comment on above: Bilateral impacted c erumen (Primary Dx) Start: 08-08-2024 End: 08-08-2024 Office outpatient visit 25 minutes Avery Syed MD Work Phone: [facility] Comment on above: Stage 4 chronic kidn ey disease (CMS-HCC) (Primary Dx) Start: 08-01-2024 ambulatory [facility] Start: 07-30-2024 ambulatory [facility] Start: 07-24-2024 End: 07-24-2024 ambulatory ENRRIQUE [facility] Start: 07-22-2024 ambulatory [facility] Start: 07-17-2024 ambulatory [facility] Start: 07-09-2024 End: 07-09-2024 Bamboo flowsheet Randall Deleon DO [facility] [address] Start: 07-09-2024 End: 07-09-2024 Bamboo flowsheet Randall Deleon DO Work Phone: [employer] [address] Start: 07-09-2024 End: 07-09-2024 Office outpatient visit 25 minutes Randall Deleon DO Work Phone: [facility] Comment on above: MOLINA (obstructive sle ep apnea) (Primary Dx); Hypersomnia; Primary insomnia; Snoring; Hypoxia Start: 07-09-2024 End: 07-09-2024 ambulatory RANDALL DELEON Not Available Start: 06-26-2024 ambulatory [facility] Start: 2024 ambulatory [facility] Start: 04-22-2024 End: 04-22-2024 ambulatory DO Arnie Linda Work Phone: [facility] Work Phone: Start: 04-22-2024 End: 04-22-2024 Patient encounter procedure DO Arnie Linda Work Phone: [facility] Work Phone: Start: 04-11-2024 ambulatory [facility] Start: 04-09-2024 ambulatory [facility] Start: 04-02-2024 ambulatory GREG [facility] Start: 03-29-2024 End: 03-29-2024 ambulatory [facility] Start: 03-05-2024 End: 03-05-2024 ambulatory [facility] Start: 03-01-2024 End: 03-01-2024 ambulatory DO Arnie Linda Work Phone: [facility] Work Phone: Start: 03-01-2024 End: 03-01-2024 Patient encounter procedure DO Arnie Ball Work Phone: [facility] Work Phone: Start: 03-01-2024 Registered Recurring DO Jeremi in Ball Work Phone: [facility] Work Phone: Start: 02-21-2024 End: 02-21-2024 ambulatory RANDALL DELEON Not Available Start: 02-01-2024 Non-patient / Non-visit DO Aguilar Linda Work Phone: [facility] Work Phone: Start: 12-19-2023 Non-patient / Non-visit DO Aguilar Linda Work Phone: [facility] Work Phone: Start: 12-18-2023 End: 12-18-2023 ambulatory Arnie Linda Other [facility] [employer] Other Start: 12-18-2023 Telephone encounter Arnie Linda FP [facility] Start: 12-18-2023 End: 12-18-2023 Patient encounter procedure DO Arnie Ball Work Phone: [facility] Work Phone: Start: 09-29-2023 End: 09-29-2023 ambulatory Arnie Linda Other [facility] [employer] Other Start: 09-29-2023 Telephone encounter Arnie Linda FP [facility] Start: 09-01-2023 End: 09-01-2023 Registered Recurring DO Arnie Ball Work Phone: [facility] Work Phone: Start: 09-01-2023 End: 09-01-2023 ambulatory DO Arnie Ball Work Phone: [facility] Work Phone: Start: 08-27-2023 End: 08-27-2023 ambulatory Arnie Ball Other [employer] Other Start: 08-27-2023 Telephone encounter Arnie Ball [facility] Start: 08-22-2023 End: 08-22-2023 ambulatory Arnie Ball Other [employer] Other Start: 08-22-2023 Office outpatient vi sit 25 minutes Arnie Ball [facility] Start: 07-03-2023 End: 07-03-2023 ambulatory Arnie Ball Other [employer] Other Start: 07-03-2023 Telephone encounter Arnie Ball [facility] Start: 07-01-2023 End: 07-01-2023 ambulatory Arnie Ball Other [employer] Other Start: 07-01-2023 Telephone encounter Arnie Ball [facility] Start: 06-22-2023 End: 06-22-2023 ambulatory Arnie Ball Other [employer] Other Start: 06-22-2023 Telephone encounter Arnie Ball [facility] Start: 06-12-2023 End: 06-12-2023 ambulatory Arnie Ball Other [employer] Other Start: 06-12-2023 Telephone encounter Arnie Ball [facility] Start: 04-26-2023 End: 04-26-2023 ambulatory Arnie Ball Other [employer] Other Start: 04-26-2023 Telephone encounter Arnie Ball [facility] Start: 04-20-2023 End: 04-20-2023 ambulatory Arnie Ball Other [employer] Other Start: 04-20-2023 Office outpatient vi sit 25 minutes Arnie Ball [facility] Start: 03-14-2023 End: 03-14-2023 ambulatory Arnie Ball Other [employer] Other Start: 03-14-2023 Telephone encounter Arnie Maddi FP [facility] Start: 02-28-2023 End: 03-01-[address] DOCTOR EDWARDS Facility:[facility] Start: 02-15-2023 Telephone encounter Arnie CARRASCO [facility] Start: 02-15-2023 End: 02-16-[address] DOCTOR EDWARDS [employer] Other Start: 02-14-2023 End: 02-14-2023 ambulatory Arnie Maddi Other [employer] Other Start: 02-14-2023 Telephone encounter Arnie Linda [facility] Start: 01-11-2023 End: 01-11-2023 ambulatory Arnie Linda Other [employer] Other Start: 01-11-2023 Office outpatient vi sit 15 minutes Arnie Linda [facility] Start: 01-02-2023 End: 01-03-2023 ambulatory AVERY SYED MD Facility:[facility] Start: 12-15-2022 End: 12-15-2022 ambulatory Arnie Linda Other [employer] Other Start: 12-15-2022 Patient encounter procedure Arnie Linda [facility] Start: 11-16-2022 End: 11-17-[address] ARNIE ILNDA Facility:[facility] Start: 11-14-2022 End: 11-14-2022 ambulatory Arnie Linda Other [employer] Other Start: 11-14-2022 Telephone encounter Arnie Linda [facility] Start: 10-03-2022 End: 10-04-[address] ARNIE LINDA Facility:[facility] Start: 09-22-2022 End: 09-23-[address] DOCTOR EDWARDS Facility:[facility] Start: 09-09-2022 End: 09-10-[address] DOCTOR EDWARDS Facility:[facility] Start: 09-02-2022 End: 09-02-2022 ambulatory DO Arnie Linda Work Phone: [facility] Work Phone: Start: 09-02-2022 End: 09-02-2022 Registered Recurring DO Arnie Ball Work Phone: [facility] Start: 08-30-2022 End: 08-31-[address] ARNIE LINDA Facility:[facility] Start: 07-21-2022 End: 07-21-2022 Admission to same day surgery center DO Arnie Ball Work Phone: [facility] Start: 07-21-2022 End: 07-21-2022 ambulatory DO Arnie Maddi Work Phone: [facility] Work Phone: Start: 07-20-2022 End: 07-21-[address] ARNIE LINDA Facility:[facility] Start: 07-19-2022 End: 07-19-2022 ambulatory DO Arnie Maddi Work Phone: [facility] Work Phone: Start: 07-19-2022 End: 07-19-2022 Patient encounter procedure DO Arnie Ball Work Phone: [facility]Pre-Surgical Testing Start: 07-07-[address] DAWN Rodgers ility:[facility]1 Start: 06-21-2022 Adult health examination Gume Linda Other [employer] Other Start: 06-17-2022 Registered Recurring DO Jeremi in Ball Work Phone: [facility] Start: 06-03-2022 End: 06-03-2022 Registered Recurring DO Arnie Ball Work Phone: [facility] Start: 05-31-2022 End: 05-31-2022 Patient encounter procedure DO Arnie Ball Work Phone: [facility] [place] Start: 05-12-2022 End: 05-13-2022 ambulatory AVERY SYED MD Facility:[facility] Start: 05-10-2022 End: 05-11-2022 ambulatory FERMIN SANCHEZ Facility:[facility] Start: 04-26-2022 End: 04-27-[address] DOCTOR EDWARDS Facility:[facility] Start: 04-11-2022 End: 07-07-[address] ARNIE LINDA Facility:[facility] Start: 04-08-2022 End: 04-09-[address] ARNIE LINDA Facility:[facility] Start: 03-30-2022 End: 04-02-2022 Evaluation and management of inpatient GILMER CHADWICK Facility:[facility] Start: 03-25-2022 End: 03-26-2022 ambulatory ENRRIQUE MCKEON Facility:[facility] Start: 03-11-2022 ambulatory ENRRIQUE MCKEON Facility :[facility] Start: 03-06-2022 End: 03-07-2022 Evaluation and management of inpatient DR RUPINDER GRIGSBY . Facility:[facility] Start: 03-04-2022 End: 03-05-[address] ARNIE LINDA Facility:[facility] Start: 08-17-2021 End: 08-17-2021 Pre-procedure evaluation check Arnie Ball Other [employer] Other Start: 08-15-2021 Bradycardia DO Arnie Ba ll Work Phone: [facility] Procedures Date Procedure Procedure Detail [...] on above: Result Comment: PERF ORMED BY: [facility] [address] [place] [address] PATHOLOGIST ALODIZE MACHINE OPERATOR TRU UMANZOR M.D. Performed By: #### C EA, CBC, FE and TIBC, CMP, TONY ####[facility] [id number] [facility] Start: 02-28-2023 CT of abdomen and pe lvis without contrast DO Intr[employer] Work Phone: Start: 02-28-2023 CT of chest without contrast DO Arnie Viewdle Work Phone: Start: 01-02-2023 PSA screening FERMIN JADE Comment on above: Performed By: #### F T4, PSASC #### [facility] [address] [address] [address] Benito Schwartz Start: 08-31-2022 CT of abdomen and pe lvis without contrast DO Arnie Viewdle Work Phone: Start: 08-31-2022 CT of chest without contrast DO Arnie Viewdle Work Phone: Start: 07-21-2022 Colonoscopy DO CXOWAREami n Viewdle Work Phone: Start: 05-31-2022 CT of abdomen and pe lvis without contrast DO [employer] Work Phone: Start: 05-31-2022 CT of chest without contrast DO Arnie Viewdle Work Phone: Start: 02-22-2022 Computed tomography of abdomen and pelvis with contrast DO [employer] Work Phone: Start: 02-22-2022 CT of thorax with contrast DO Arnie Viewdle Work Phone: Start: 05-19-2018 Laboratory test resu lt abnormal [employer] Other Start: 04-25-2017 Screening for malign ant neoplasm of colon [employer] Other Start: 08-24-2016 Pre-surgery evaluation [employer] Other Start: 08-24-2016 Preoperative cardiov ascular examination [employer] Other Start: 01-01-2015 Screening for malign ant neoplasm of prostate Arnie Viewdle Other Depression screening CXOWAREami n View[facility] Other SARS Antigen (LFIA) DO Gume min Viewdle Work Phone: Screening for malign ant neoplasm of prostate Arnie Linda Other Plan of Treatment Date Care Activity Detail Author Start: 02-07-2025 Adult BMI Screening Adult BMI Screen ing [facility] [employer] [facility] Start: 02-06-2025 End: 08-08-2025 Basic metabolic 2000 panel - Serum or Plasma Basic Metabolic Panel Lab Routine Stage 4 chronic kidney disease ([facility]) Expected: 02/06/2025 (Approximate), Expires: 08/08/2025 [facility] Work Phone: Comment on above: Expected: 02/06/2025 (Approximate), Expires: 08/08/2025 Start: 02-06-2025 End: 08-08-2025 CBC panel - Blood by Automated count CBC without diff Lab Routine Stage 4 chronic kidney disease ([facility]) Expected: 02/06/2025 (Approximate), Expires: 08/08/2025 [facility] I O Comment on above: Expected: 02/06/2025 (Approximate), Expires: 08/08/2025 Start: 02-06-2025 End: 08-08-2025 Magnesium [Mass/volume] in Serum or Plasma Magnesium Lab Routine Stage 4 chronic kidney disease ([facility]) Expected: 02/06/2025 (Approximate), Expires: 08/08/2025 [email or web address] Comment on above: Expected: 02/06/2025 (Approximate), Expires: 08/08/2025 Start: 02-06-2025 End: 08-08-2025 Parathyroid Hormone, intact Parathyroid Hormone, intact Lab Routine Stage 4 chronic kidney disease ([facility]) Expected: 02/06/2025 (Approximate), Expires: 08/08/2025 [facility] Comment on above: Expected: 02/06/2025 (Approximate), Expires: 08/08/2025 Start: 02-06-2025 End: 08-08-2025 Phosphate [Mass/volume] in Serum or Plasma Phosphorus Lab Routine Stage 4 chronic kidney disease ([facility]) Expected: 02/06/2025 (Approximate), Expires: 08/08/2025 [email or web address] Comment on above: Expected: 02/06/2025 (Approximate), Expires: 08/08/2025 Start: 02-06-2025 End: 08-08-2025 Protein creat ratio Protein creat ratio Lab Routine Stage 4 chronic kidney disease ([facility]) Expected: 02/06/2025 (Approximate), Expires: 08/08/2025 [facility] Comment on above: Expected: 02/06/2025 (Approximate), Expires: 08/08/2025 Start: 12-04-2024 End: 12-04-2024 Clinical Support 12/04/2024 1:00 PM EST Clinical Support [facility] [address] [place] [id number] Marilin Clay, [facility] [address] [place] [address] [facility] Start: 08-21-2024 End: 08-21-2024 Clinical Support [facility] Comment on above: Arrived Start: 08-15-2024 End: 08-08-2025 Protein creat ratio Protein creat ratio Lab Routine Stage 4 chronic kidney disease ([facility]) Expected: 08/15/2024 (Approximate), Expires: 08/08/2025 [facility] Comment on above: Expected: 08/15/2024 (Approximate), Expires: 08/08/2025 Start: 07-09-2024 End: 07-09-2024 Patient encounter procedure 07/09/2024 10:30 AM EDT Office Visit [facility] [address] [place] [address] Randall Deleon, [address] [place], [place] [id number] Arrived [facility] Comment on above: Arrived Start: 06-16-2024 Influenza vaccination Influenza Vacc ine (#1) [facility] Start: 07-21-2022 [facility] Start: 06-17-2022 Registered Recurring Colon cancer [facility] Start: 06-17-2022 [facility] Start: 06-10-2022 [facility] Start: 02-22-2022 CT abdomen pelvis w con CT abd omen pelvis w con [facility] Start: 02-22-2022 CT chest w con CT chest w con [facility] Start: 2007 Fall Risk Screening Fall Risk Screen ing [facility] Start: 1992 Administration of varicella zoster vaccine Zoster (Shingles) Vaccine (1 of 2) [facility] Start: 1961 DTaP,Tdap and Td Vac cines (1 - Tdap) DTaP,Tdap and Td Vaccines (1 - Tdap) [facility] Start: 1954 Depression Screening Depression Scre ening [facility] Start: 1954 Tobacco Screening Tobacco Screening [facility] Start: 1942 Medicare Annual Well ness Visit Medicare Annual Wellness Visit [facility] Carcinoembryonic Ag [Mass/volume] in Serum or Plasma [facility] Work Phone: Carcinoembryonic Ag [Mass/volume] in Serum or Plasma [facility] Carcinoembryonic Ag [Mass/volume] in Serum or Plasma [facility] Comprehensive metabo lic 1999 panel - Serum or Plasma [facility] Work Phone: Comprehensive metabo lic 1999 panel - Serum or Plasma [facility] Comprehensive metabo lic 1999 panel - Serum or Plasma [facility] Comprehensive metabo lic 1999 panel - Serum or Plasma [facility] Comprehensive metabo lic 1999 panel - Serum or Plasma [facility] Comprehensive metabo lic 1999 panel - Serum or Plasma [facility] CT Abdomen and Pelvi s W contrast IV [facility] Work Phone: CT Abdomen and Pelvi s W contrast IV [facility] CT Abdomen and Pelvi s W contrast IV [facility] CT Abdomen and Pelvi s W contrast IV [facility] CT Abdomen and Pelvi s WO contrast [facility] Work Phone: CT Abdomen and Pelvi s WO contrast [facility] CT Abdomen and Pelvi s WO contrast [facility] CT Chest W contrast IV [facility] Work Phone: CT Chest W contrast IV [facility] CT Chest W contrast IV [facility] CT Chest W contrast IV [facility] CT Chest WO [facility] Work Phone: CT Chest WO contrast [facility] CT Chest WO contrast [facility] Erythropoietin (EPO) [Units/volume] in Serum or Plasma [facility] Ferritin [Mass/volum e] in Serum or Plasma [facility] Patient Education Hemorrhoids [place] v[place] Polyps [facility] Work Phone: End: 08-08-2025 Urinalysis Urinalysis Lab Routine Stage 4 chronic kidney disease ([facility]) 1 Occurrences starting 08/08/2024 until 08/08/2025 [employer] Comment on above: 1 Occurrences starti ng 08/08/2024 until 08/08/2025 [facility] Immunizations Immunization Date Immunization Notes Care Provider Law blair 07-15-2024 influenza virus vaccine, unspecified formulation Marilin Clay [facility] Work Phone: [facility] 07-11-2023 influenza virus vaccine, unspecified formulation Randall Deleon DO Work Phone: [facility] 07-10-2022 COVID-19 Pfizer (bivalent) Arnie Linda Other [facility] 07-10-2022 COVID-19 Pfizer (Pediatric) Arnie Linda Other [facility] 07-04-2022 influenza virus vaccine, split virus (incl. purified surface antigen) Arnie Linda Other [employer] Other 07-04-2022 influenza virus vaccine, unspecified formulation DO Arnie Linda Work Phone: [facility] 07-04-2022 influenza, high dose seasonal, preservative-free Arnie Linda Other [facility] [employer] Other 02-07-2022 COVID-19 Pfizer Arnie pedroza Other [facility] 02-07-2022 COVID-19 Vaccine Pfi zer - Documentation Purposes Only Arnie Linda Other [facility] 07-28-2021 influenza virus vaccine, split virus (incl. purified surface antigen) Arnie Linda Other [facility] [employer] Other 07-28-2021 influenza virus vaccine, unspecified formulation DO Arnie Linda Work Phone: [facility] 07-15-2021 COVID-19 mRNA, Comirnaty (Pfizer) DO Arnie Linda Work Phone: [facility] 12-03-2020 COVID-19 mRNA, Comirnaty (Pfizer) DO Arnie Linda Work Phone: [facility] 11-12-2020 COVID-19 mRNA, Comirnaty (Pfizer) DO Arnie Linda Work Phone: [facility] 06-30-2020 influenza virus vaccine, split virus (incl. purified surface antigen) Arnie Linda Other [facility] [employer] Other 06-30-2020 influenza virus vaccine, unspecified formulation DO Arnie Linda Work Phone: [facility] 07-19-2019 influenza virus vaccine, split virus (incl. purified surface antigen) Arnie Linda Other [facility] [employer] Other 07-19-2019 influenza virus vaccine, unspecified formulation DO Arnie Linda Work Phone: [facility] 07-17-2018 influenza virus vaccine, split virus (incl. purified surface antigen) Arnie Linda Other [employer] Other 07-17-2018 influenza virus vaccine, unspecified formulation DO Arnie Linda Work Phone: [facility] 12-25-2017 diphtheria, tetanus toxoids and acellular pertussis vaccine, unspecified formulation Arnie Linda Other [facility] 07-24-2017 influenza virus vaccine, split virus (incl. purified surface antigen) Arnie Linda Other [employer] Other 07-24-2017 influenza virus vaccine, unspecified formulation DO Arnie Linda Work Phone: [facility] 07-12-2016 influenza virus vaccine, split virus (incl. purified surface antigen) Arnie Linda Other [facility] [employer] Other 07-12-2016 influenza virus vaccine, unspecified formulation DO Arnie Linda Work Phone: [facility] 05-26-2016 pneumococcal Conjuga te, unspecified formulation; Translations: [Need for prophylactic vaccination against Streptococcus pneumoniae (pneumococcus)] Arnie Linda Other [facility] [employer] Other 05-26-2016 pneumococcal conjuga te vaccine, 13 valent Arnie Linda Other [facility] 07-08-2015 influenza virus vaccine, split virus (incl. purified surface antigen) Arnie Linda Other [facility] [employer] Other 07-08-2015 influenza virus vaccine, unspecified formulation DO Arnie Linda Work Phone: [facility] 08-02-2013 tetanus and diphther ia toxoids, adsorbed, preservative free, for adult use (5 Lf of tetanus toxoid and 2 Lf of diphtheria toxoid) Arnie Linda Other [facility] 08-02-2013 pneumococcal polysaccharide vaccine, 23 valent Arnie Linda Other [facility] 07-16-2013 pneumococcal conjuga te vaccine, 13 valent Randall Deleon DO Work Phone: [facility] 06-27-2012 tetanus and diphther ia toxoids, adsorbed, preservative free, for adult use (5 Lf of tetanus toxoid and 2 Lf of diphtheria toxoid) Arnie Maddi Other [facility] Payers Date Payer Category Payer Private Health Insurance AARP Fl mber Subscriber Plan / Payer (Effective 2022-Present) Name: Nas Ren Relation to Subscriber: Self Name: Nas Ren Payer ID: Not on file Group ID: Not on file Type: Not on file Address: [address] [place] [id number] 2022 Unknown AAR AARP [id number] 2022-Present [address] [place] [address] [id number] 2021 Managed Care Other (unspecified) [facility] [id number] 2007 Medicare [id number] 1959 Medicare [id number] 1959 Self-pay [id number] 1959 Unknown [id number] 1942 Unknown [id number] 2.16.840.1.716353.3.579.2 .647 1942 Unknown [id number] 2.16.840.1.722694.3.579.2 .593 1942 Unknown [id number] 2.16.840.1.275942.3.579.2 .593 1942 Unknown [id number] 2.16.840.1.649287.3.579.2 .593 1942 Unknown [id number] 2.16.840.1.788157.3.579.2 .593 1942 Unknown [id number] 2.16.840.1.008569.3.579.2 .593 1942 Unknown [id number] 2.16.840.1.913853.3.579.2 .593 1942 Unknown [id number] 2.16.840.1.548354.3.579.2 .593 1942 Unknown [id number] 2.16.840.1.808920.3.579.2 .593 1942 Unknown [id number] 2.16.840.1.999972.3.579.2 .593 1942 Unknown [id number] 2.16.840.1.678256.3.579.2 .593 1942 Unknown [id number] 2.16.840.1.249126.3.579.2 .593 1942 Unknown [id number] 2.16.840.1.381134.3.579.2 .593 1942 Unknown [id number] 2.16.840.1.167331.3.579.2 .593 1942 Unknown [id number] 2.16.840.1.601716.3.579.2 .593 1942 Unknown [id number] 2.16.840.1.387064.3.579.2 .593 1942 Unknown [id number] 2.16.840.1.590930.3.579.2 .593 1942 Unknown [id number] 2.16.840.1.780719.3.579.2 .593 1942 Unknown [id number] 2.16.840.1.294170.3.579.2 .593 1942 Unknown [id number] 2.16.840.1.254781.3.579.2 .593 1942 Unknown [id number] 2.16.840.1.392727.3.579.2 .593 1942 Unknown [id number] 2.16.840.1.360009.3.579.2 .593 1942 Unknown [id number] 2.16.840.1.023214.3.579.2 .1259 1942 Unknown [id number] 2.16.840.1.531144.3.579.2 .1259 1942 Unknown [id number] 2.16.840.1.486511.3.579.2 .1259 Unknown [id number] 2.16.840.1.424636.3.579.2 .593 Unknown [id number] 2.16.840.1.862358.3.579.2 .531 Unknown [id number] 2.16.840.1.609543.3.579.2 .531 Social History Date Type Detail Facility Start: 06-03-2022 End: 07-08-2024 Tobacco smoking status NHIS Ex-smoker (finding) [facility] Start: 1940 Sex Assigned At Male [facility] Start: 07-09-2024 End: 08-08-2024 Sex Assigned At [facility] [employer] Other History of tobacco use Current smoker [facility] Start: 06-01-2023 End: 07-09-2024 Tobacco use and exposure Smokeless tobacco non-user [facility] Start: 08-08-2024 Alcoholic beverage intake Ex-drinker (finding) [facility] Start: 07-09-2024 End: 08-08-2024 History of Social function [facility] Healthcare Childcare Unknown [facility] Start: 1940 Sex assigned at Not on file N [facility] Start: 05-21-2015 Sex Male (finding) [facility] History of tobacco use Cigarette Smoker N [facility] Healthcare Start: 07-08-2024 End: 07-09-2024 Alcoholic beverage intake Current drinker of alcohol (finding) [facility] How many standard drinks containing alcohol do you have on a typical day? 1 or 2 [facility] How often do you hav e 6 or more drinks on 1 occasion? Never [facility] Start: 07-08-2024 Alcohol Comment caffeine: none [facility] Start: 08-18-2023 Gender identity Identifies as male gender (finding) [facility] Medical Equipment Procedure Code Equipment Code Equipment Origin al Text Equipment Identifier Dates Blood Sugar Diagnostic (Contour Next Test Strips) strip Start: 12-15-2023 Blood Sugar Diagnostic (Contour Next Test Strips) strip Start: 12-15-2023 Goals Date Patient Goal Desired Activity /State Clinical Notes 08-31-2021 to 10-17-2024 Marilin Clay, [facility] - 08/21/2024 1:00 PM Pietro Syed MD - 08/08/2024 10:30 AM EDTRandall Deleon DO - 07/09/2024 10:30 AM EDT Note Date & Type Note Facility 10-17-2024 Note DIRECT CARDIOVERSION PROCEDURE NOTE Date: 10/17/2024. Type of procedure: DC Cardioversion. Performed by: Mariusz Degroot MD Informed consent: Signed by patient. Preparation and technique: Patient was brought into the procedure room. After an informed consent was obtained following a discussion with the patient where I explained the risk and benefit of the procedure that is not limited to skin caraballo, fluid in the lungs, heart attack, stroke, or even , though that is very rare. Patches were placed in anteroposterior direction and once patient was made comfortable with Versed 2mg and Fentanyl 25mcg. Following sedation, the patient underwent synchronized cardioversion using 360J which converted to sinus rhythm. Post procedure, the patient was stable. No complications noted. Plan: Continue anticoagulation. Mariusz Degroot MD Cardiac Electrophysiology [facility] 10-17-2024 Note Patient: Nas guzman Procedure Information Date/Time: 10/17/24 1230 Procedure: Cardioversion - PC APPROVED Location: [facility] CUR[facility] WORKER HOLDING ROOM / [facility] HV VASCULAR LAB (Cath) Providers: Mariusz Degroot MD Clinical information reviewed: Allergies Meds Physical Exam Airway Mallampati: II TM distance: >3 FB Neck ROM: full Cardiovascular Dental Pulmonary Abdominal Anesthesia Plan ASA 3 CSE Anesthetic plan and risks discussed with patient. Use of blood products discussed with patient who. Additional Equipment Requests [facility] 09-10-2024 Note ami [facility] 09-10-2024 Note [place] Electrophysiology Consult Note Reason for visit: Afib and dilated CMP. 09/10/24 Patient underwent INDUSTRIAL GAS [employer]TER-D upgrade procedure on 06/12/2023. Subsequent echocardiogram in [...] infrahisian disease. He was brought back [facility]2020 due to what was discussed [...] time if needed. documented in this encounter [facility] 08-12-2024 Note Pt is getting a colo noscopy in early August, is it alright to hold eliquis for two days prior to procedure? [facility] 08-08-2024 History of Present illness Narrative Images from the original note were not included. Date of Service: 08/08/24 PCP: ARNIE LINDA DO History of Present Illness Nas Ren [...] Follows with Dr. Rodriguez Pulmonary medicine in [place] 60% Left renal artery stenosis noted in the past Decreased left ventricular function ejection fraction 30%. [facility]cis Diana at [facility]. His most recall his echo on 09/11/2023 [...] colon status post colectomy with reanastomosis in [place] August 2021. Being followed by Oncology with [...] Interpersonal Safety: Unknown (12/07/2023) Received from [facility] Safety & Environment Fear of Current or Ex-Partner: Not on file Emotionally Abused: Not on file Physically Abused: Not on file Sexually Abused: Not on file Physically or Sexually Abused: Not on file Housing Instability: Not on file Family History: Family History Problem Relation Age of Onset Diabetes Mother Hypertension Mother Diabetes Father Hypertension Father Allergies & Medications Allergies: Allergies Allergen Reactions Sfeojap-Ijc-Mby Reductase Inhibitors Current Meds: Current Outpatient Medications [...] results found for: IRONSAT , FERRITIN , ASEMVLLH11 , FOLATE Mineral and Bone Labs: No [...] of your patients! Please contact me at [phone] (Office) or [phone] (Answering service) with any questions. AVERY SYED MD [facility] This note was created with the assistance of a speech-recognition program. Although the intention is to generate a document that actually reflects the content of the visit, no guarantees can be provided that every mistake has been identified and corrected by editing. AVERY SYED MD,PhD FACP [facility] ANY QUESTIONS FEEL FREE TO CALL: 1. OFFICE [phone] 2. ANSWERING SERVICE: [phone] documented in this encounter [facility] 07-24-2024 Note Pt is here for a fol low up from [facility] ER. Pt denies sob, chest pain, and palpatations. Review of Systems Cardiovascular: Positive for leg swelling. Hematologic/Lymphatic: Bruises/bleeds easily. All other systems reviewed and are negative. [facility] 07-24-2024 Note Cardiovascular Medic ine [place] [facility] SUBJECTIVE Chief Complaint Patient presents with Atrial Fibrillation Coronary Artery Disease Nas Ren is a 84 y.o. male here for follow-up. HPI PMHx: chronic systolic heart failure, persistent afib, CAD, hypertension, and dilated cardiomyopathy s/p ICD He was in the ER last week for c/o low BP and dizziness. He went to [facility] and they told him he was [...] disease (CMS/HCC) Bacteremia Chronic systolic heart failure ([facility]/HCC) Dyslipidemia Edema of lower extremity Hyperlipidemia Hypertensive disorder Left ventricular systolic dysfunction Osteomyelitis of vertebra ([facility]/HCC) Paroxysmal atrial flutter ([facility]/HCC) Proteinuria Type 2 diabetes mellitus ([facility]/HCC) COPD (chronic obstructive pulmonary disease) ([facility]/HCC) Dilated cardiomyopathy ([facility]/HCC) Statin intolerance Stage 4 chronic kidney disease ([facility]/HCC) Chronic bronchitis, simple ([facility]/HCC) Chronic venous insufficiency Constipation Hyperlipidemia type II Hypothyroidism due to medication Impaired mobility and activities of daily living Iron deficiency anemia Colon cancer ([facility]/HCC) Mucopurulent chronic bronchitis ([facility]/HCC) Obstructive sleep apnea Pacemaker A-fib ([facility]) Psoas abscess, right ([facility]/HCC) Pulmonary hypertension ([facility]/HCC) Thyrotoxicosis Type 2 diabetes mellitus with hyperglycemia ([facility]) Past Medical History: Diagnosis Date Arrhythmia CHF (congestive heart failure) ([facility]/HCC) Chronic kidney disease Family History Problem Relation Name Age of Onset Diabetes Mother Heart disease Father Glaucoma Brother Diabetes Maternal Grandmother Clotting disorder Other Social History Tobacco Use Smoking status: Former Types: Cigarettes Quit date: 1981 Years since quittin.8 Smokeless tobacco: Never Substance Use Topics Alcohol use: Yes Comment: OCCASIONAL Drug use: Never Allergies Allergen Reactions Mmwqhaa-Eup-Cnd Reductase Inhibitors Tramadol ROS Cardiovascular: Positive for [...] tablet, (more content not included)... [facility] 07-09-2024 History of Present illness [...] was councelled on the risks of stroke, CT, and sudden with MOLINA, along with the [...] clinic: 1 year documented in this encounter [facility] 03-29-2024 Note [place] Cardiology - [facility] Subjective Nas Ren is a 83 y.o. year old male patient being seen for 6 mo follow up chronic systolic heart failure, persistent afib, CAD, hypertension, and dilated cardiomyopathy s/p ICD. His device was interrogated last month, and he had lipid profile in December 2023. His librarian helper switched him from Bumex to Lasix due [...] flutter (CMS/HCC) Proteinuria Type 2 diabetes mellitus ([facility]/HCC) COPD (chronic obstructive pulmonary disease) (CMS/HCC) Dilated cardiomyopathy (CMS/HCC) Statin intolerance Stage 4 chronic kidney disease (CMS/HCC) Chronic bronchitis, simple (CMS/HCC) Chronic venous insufficiency Constipation Hyperlipidemia type II Hypothyroidism due to medication Impaired mobility and activities of daily living Iron deficiency anemia Colon cancer (CMS/HCC) Mucopurulent chronic bronchitis (CMS/HCC) Obstructive sleep apnea Pacemaker A-fib ([facility]/HCC) Psoas abscess, right (CMS/HCC) Pulmonary hypertension (CMS/HCC) Thyrotoxicosis Type 2 diabetes mellitus with hyperglycemia ([facility]/HCC) Family History Problem Relation Name Age of Onset Diabetes Mother Heart disease Father Glaucoma Brother Diabetes Maternal Grandmother Clotting disorder Other Social History Tobacco Use Smoking status: Former Types: Cigarettes Quit date: 1982 Years since quittin.4 Smokeless tobacco: Never Substance [...] Judgment: Judgment normal. Allergies Allergies Allergen Reactions Ibkjuoi-Ork-Rgc Reductase Inhibitors Tramadol Medications Current Outpatient Medicat (more content not included)... [facility] 12-18-2023 Evaluation note Encounter Date Diagnosis Assessment Notes Dec, Thyrotoxicosis (ICD-10 - E05.90) Dec, Hypothyroidism due to medication (ICD-10 - E03.2) [employer] Other 11-12-2023 Evaluation note* Encounter Date Diagnosis Assessment Notes Treatment Notes Treatment Clinical Notes Aug, Hyperuricemia (ICD-1 0 - E79.0) [facility] Other 11-07-2023 Evaluation note* Encounter Date Diagnosis [...] are maintaining regular scheduled appts with their solid waste collector. No bleeding complications Aug, Mucopurulent chronic bronchitis [...] use, the patient reduces the risk for CT, CVA, HTN, cardiac dysrhythmias and sudden cardiac [...] the risk for cerebrovascular and cardiovascular disease. [employer] Other 09-07-2023 Evaluation note* Encounter Date Diagnosis Assessment Notes Treatment Notes Treatment Clinical Notes Jun, Hypothyroidism due t o medication (ICD-10 - E03.2) [employer] Other 07-06-2023 Evaluation note* Encounter Date Diagnosis [...] use, the patient reduces the risk for CT, CVA, HTN, cardiac dysrhythmias and sudden cardiac [...] are maintaining regular scheduled appts with their solid waste collector. No bleeding compliations Initiated on [employer] Other 05-30-2023 Evaluation note* Encounter Date Diagnosis Assessment Notes Treatment Notes Treatment Clinical Notes February, Hypothyroidism due t o medication (ICD-10 - E03.2) [employer] Other 05-19-2023 Progress note Author Leigha Nelson [facility] March 03, 2023 2:31pm Note Date/Time March 03, 2023 2:21p m [facility] [place] [address] Hem/Onc Follow Up Note - OP Signed Patient: Nas Ren MR#: [id number] : 1940 Acct:[id number] Age/Sex: 82 / M Type: REG RCR [...] for coordination of care (as documented) and uxpe-gf-gckn counseling of patient and/or family. [facility] - Medical History Medical History: Medical History [...] Calcium 8.8, Iron 56, TIBC 281, Iron Cyzwsmafov15.9 L, Transferrin 201 L, Ferritin 236.7, Total [...] % (Auto) 68.3, Lymph % (Auto) 17.9, Larimer % (Auto) 9.6, Eos % (Auto) 3.6, Baso % (Auto) 0.6, Nucleat RBC Rel Count 0.3, Neut # (Auto) 6.6, Lymph # (Auto) 1.7, Larimer # (Auto) 0.9 H, Eos # (Auto) 0.3, Baso # (Auto) 0.1 - Home Medications and Allergies Allergies/Adverse Reactions: Allergies Xcmcvsh-QRO-IdB Reductase Inhibitor [Kxlebpt-Cjv-Yyh Reductase Inhibitor] Allergy (Verified 03/03/23 13:45) Muscle [...] <Electronically signed by EDWARD Nelson> 03/03/23 1431 [facility] Work Phone: 1(700) 371-682805-02-2023 Evaluation note* Encounter Date Diagnosis Assessment Notes Treatment Notes Treatment Clinical Notes February, Thyrotoxicosis (ICD-10 - E05.90) [facility] Other 03-29-2023 Evaluation note* Encounter Date Diagnosis [...] cardiomyopathy (ICD-10 - I42.0) Continue healthy diet. [employer] Other 03-02-2023 Evaluation note* Encounter Date Diagnosis [...] use, the patient reduces the risk for CT, CVA, HTN, cardiac dysrhythmias and sudden cardiac [...] Z12.5) Dec, Cardiac pacemaker (ICD-10 - Z95.0) [employer] Other 01-30-2023 Evaluation note* Encounter Date Diagnosis Assessment Notes Treatment Notes Treatment Clinical Notes Oct, Other thyrotoxicosis without thyrotoxic crisis or storm (ICD-10 - E05.80) [employer] Other 11-18-2022 Progress note Author Chivo Keller [facility] September 02, 2022 2:38pm Note Date/Time September 02, 2022 2:33pm [facility] [place] [id number] Hem/Onc Follow Up Note - OP Signed Patient: Nas Ren MR#: [id number] : 1940 Acct:[id number] Age/Sex: 82 / M Type: REG RCR Copies to: MD Arnie Lui,DOEmiliano Date of Service: 09/02/2022 Time of Service: [...] many years. The son's daughter also has Gol-Blackfan anemia. and Mrs. Ren were tested for [...] for coordination of care (as documented) and wyyz-hy-yaiz counseling of patient and/or family. [facility] - Medical History Medical History: Medical History [...] % (Auto) 68.3, Lymph % (Auto) 18.5, Larimer % (Auto) 8.4, Eos % (Auto) 4.3, Baso % (Auto) 0.5, Neut # (Auto) 4.6, Lymph # (Auto) 1.2, Larimer # (Auto) 0.6, Eos # (Auto) 0.3, Baso # (Auto) 0.0, Nucleated RBC % (auto) 0.1 - Home Medications and Allergies Allergies/Adverse Reactions: Allergies Hfvvndx-BHW-QgA Reductase Inhibitor [Owvdthk-Faz-Uxr Reductase Inhibitor] Allergy (Verified 09/02/22 14:10) Muscle [...] by Chivo Keller II, DO> 09/02/22 1438 [facility] Work Phone: 1(819) 667-836210-06-2022 [facility] Progress note Author Leigha Nelson [facility] June 03, 2022 10:35am Note Date/Time June 03, 2022 10 :10am [facility] [place] [address] Hem/Onc Follow Up Note - OP Signed Patient: Nas Ren MR#: [id number] : 1940 Acct:[id number] Age/Sex: 82 / M Type: REG RCR [...] for coordination of care (as documented) and pnpy-tk-laso counseling of patient and/or family. [facility] - Medical History Medical History: Medical History [...] % (Auto) 69.9, Lymph % (Auto) 17.2, Larimer % (Auto) 8.0, Eos % (Auto) 4.1, Baso % (Auto) 0.8, Neut # (Auto) 6.2, Lymph # (Auto) 1.5, Larimer # (Auto) 0.7, Eos # (Auto) 0.4, Baso # (Auto) 0.1, Nucleated RBC % (auto) 0.0 - Home Medications and Allergies Allergies/Adverse Reactions: Allergies Iwcuabl-QVV-VyN Reductase Inhibitor [Niecdtl-Pyb-Ldr Reductase Inhibitor] Allergy (Verified 06/03/22 09:55) Muscle [...] By: <Electronically signed by EDWARD Nelson> 06/03/22 8250 [facility] Work Phone: 1(786) 137-271106-18-2022 NoteMR#: [id number] [facility] Pt. Name: Nas Ren Admitted: 03/30/2022 Discharged: 04/02/2022 Date of : 1940 Physician: Gilmer Salazar MD DISCHARGE SUMMARY CONSULTING SERVICES: 1. Nephrology Service. 2. Endocrinology service. 3. Cardiology service. PRINCIPAL DIAGNOSES: 1. Plljy-pl-zowqjhj heart failure, reduced ejection fraction of 35%. 2. Acute kidney injury on chronic kidney disease, stage 4, resolved. 3. Dyspnea, on exertion. 4. Essential hypertension. 5. History of coronary artery disease. 6. Iodine-induced hyperthyroidism, uncontrolled. 7. Qbw-alvlckv-ievgiexif diabetes mellitus, diet controlled, A1c 6.4. 8. [...] is a 81-year-old male who presented to [facility] with chief complaint of dyspnea on [...] overload occurs, he is to call his solid waste collector and/or PCP. The patient also require repeat [...] Adler PA-C Date Trans: 04/02/2022 02:36 P/hans [id number] cc: Arnie Linda D.O. [address] [place] [id number] [facility]05-21-2022 NotePROCEDURE: XR CHEST 1 V REASON FOR [...] Electronically authenticated by: NICK OLMEDO Date: 2022-03-05 21:29[facility]05-15-2022 Progress note Author Chivo Keller [facility] February 27, 2022 12:52pm Note Date/Time February 25, 2022 12:11 pm [facility] [place] [address] Hem/Onc Follow Up Note - OP Signed Patient: Nas Ren MR#: [id number] : 1940 Acct:[id number] Age/Sex: 81 / M Type: REG RCR [...] for coordination of care (as documented) and seix-wr-kqhu counseling of patient and/or family. [facility] - Medical History Medical History: Medical History [...] % (Auto) 65.1, Lymph % (Auto) 19.2, Larimer % (Auto) 13.3, Eos % (Auto) 1.8, Baso % (Auto) 0.6, Neut # (Auto) 4.2, Lymph # (Auto) 1.2, Larimer # (Auto) 0.9H, Eos # (Auto) 0.1, [...] Home Medications and Allergies Allergies/Adverse Reactions: Allergies Llbocza-ONS-DaC Reductase Inhibitor [Pwvhabg-Dkp-Oky Reductase Inhibitor] Allergy (Verified 02/25/22 11:39) Muscle [...] by Chivo Keller II, DO> 02/27/22 1252 [facility] Work Phone: 1(398) 722-956611-16-2021 Consult note Author Nikunj Shultz [facility] August 31, 2021 9:50am Note Date/Time August 31, 2021 9:33am [facility] at [address] [address] Hem/Onc Consult Note - OP Signed Patient: Nas Ren MR#: [id number] : 1940 Acct:[id number] Age/Sex: 81 / M Type: REG RCR [...] 2021. He has recovered well from surgery. [facility] - Medical History Medical History: Medical History [...] Type: None Home Medications & Allergies Allergies Vqtompm-TZV-DjP Reductase Inhibitor [Qggyvhh-Rkd-Hyq Reductase Inhibitor] Allergy (Verified 08/31/21 08:57) Muscle [...] or Bravo syndrome. [facility] and refer the patient for genetic testing. - Time with Patient Coordination of Care & Counseling Time: Greater than 50% of time spent with patient was for coordination of care (as documented) and rzwq-hp-utyn counseling of patient and/or family. Dictated By: Nikunj Shultz MD DD/ 0932 Signed By: <Electronically signed by MD Nikunj Shultz> 08/31/21 0913 [facility] Work Phone: Evaluation note* Diagnosis Onset Date Resolution Status Colon cancer acute [facility] Work Phone: Evaluation noteNo [facility] Other Evaluation note* Diagnosis Onset Date Resolution [...] (prostate specific antigen) noneactive Colon cancer acute [facility] Work Phone: Evaluation note* Diagnosis Onset [...] Type 2 diabetes mellitus with hyperglycemia acute [facility] Work Phone: Evaluation note* Diagnosis Stage 4 chronic kidney disease (CMS-HCC)- Primary [facility] Diagnosis Bilateral impacted cerumen- Primary Impacted cerumen [facility] Diagnosis MOLINA (obstructive sleep apnea)- Primary Obstructive sleep apnea (adult) (pediatric) Hypersomnia Hypersomnia, unspecified Primary insomnia Persistent disorder of initiating or maintaining sleep Snoring Other dyspnea and respiratory abnormality Hypoxia Hypoxemia documented in this encounter [facility] and physical note Author Ramesh Rascon [facility] July 21, 2022 9:27am Note Date/Time July 21, 2022 9: 27am [facility] [address] [place] [address] Gastroenterology H&P Signed Patient: Nas Ren MR#: [id number] : 1940 Acct:[id number] Age/Sex: 82 / M Adm Date: 2 Loc: Room: Type: [facility] Attending Dr: Ramesh Rascon MD Copies [...] <Electronically signed by Ramesh Rascon MD> 07/21/22926 [facility] Work Phone: History general Narrative - [...] HEART CATH 04/2016 Hospitalization History See above [employer] Other Hisqmjw general Narrative - Reported* Type Description Date [...] in year 07/2022 Hospitalization History See above [employer] Other Hisbotv general Narrative - Reported* Type Description Date [...] 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 for [...] Follow up with PCP. - Office number [phone].[facility] Work Phone: InstructionsNot on filedocumented in this encounter [facility] note Author Leigha Nelson [facility] June 03, 2022 10:35am Note Date/Time June 03, 2022 10 :10am [facility] [place] [address] Hem/Onc Follow Up Note - OP Signed Patient: Nas Ren MR#: [id number] : 1940 Acct:[id number] Age/Sex: 82 / M Type: REG RCR Copies to: MD Arnie Lui,DO Chivo Keller II, DO~ Date of Service: 06/03/2022 Time [...] for coordination of care (as documented) and qloi-pv-dqgy counseling of patient and/or family. [facility] - Medical History Medical History: Medical History [...] % (Auto) 69.9, Lymph % (Auto) 17.2, Larimer % (Auto) 8.0, Eos % (Auto) 4.1, Baso % (Auto) 0.8, Neut # (Auto) 6.2, Lymph # (Auto) 1.5, [place]imer # (Auto) 0.7, Eos # (Auto) 0.4, Baso # (Auto) 0.1, Nucleated RBC % (auto) 0.0 - Home Medications and Allergies Allergies/Adverse Reactions: Allergies Ekeoaep-LFQ-MkZ Reductase Inhibitor [Bxhsysl-Ehv-Myw Reductase Inhibitor] Allergy (Verified 06/03/22 09:55) Muscle [...] <Electronically signed by EDWARD Nelson> 06/03/22 1035 [facility] Work Phone: Progress note Author Chivo Keller [facility] September 02, 2022 2:38pm Note Date/Time September 02, 2022 2:33pm [facility] [place] [address] Hem/Onc Follow Up Note - OP Signed Patient: Nas Ren MR#: [id number] : 1940 Acct:[id number] Age/Sex: 82 / M Type: REG RCR [...] for coordination of care (as documented) and moui-gt-xtzf counseling of patient and/or family. [facility] - Medical History Medical History: Medical History [...] % (Auto) 68.3, Lymph % (Auto) 18.5, Larimer % (Auto) 8.4, Eos % (Auto) 4.3, Baso % (Auto) 0.5, Neut # (Auto) 4.6, Lymph # (Auto) 1.2, [place]imer # (Auto) 0.6, Eos # (Auto) 0.3, Baso # (Auto) 0.0, Nucleated RBC % (auto) 0.1 - Home Medications and Allergies Allergies/Adverse Reactions: Allergies Mrxunhk-CHA-UwE Reductase Inhibitor [Kjvqvnz-Enw-Cmp Reductase Inhibitor] Allergy (Verified 09/02/22 14:10) Muscle [...] by Chivo Keller II, DO> 09/02/22 1438 [facility] Work Phone: Progress note Author Chivo Keller [facility] September 01, 2023 2:14pm Note Date/Time September 01, 2023 2:09pm [facility] [place] [id number] Hem/Onc Follow Up Note - OP Signed Patient: Nas Ren MR#: [id number] : 1940 Acct:[id number] Age/Sex: 83 / M Type: REG RCR [...] for coordination of care (as documented) and pqtj-ix-cgbx counseling of patient and/or family. [facility] - Medical History Medical History: Medical History [...] Calcium 9.7, Iron 84, TIBC 290, Iron Vajnjbdrtd45.0, Transferrin 207, Ferritin 239.3, Total Bilirubin 0.8, AST 23, ALT 20, Alkaline Phosphatase 114 H, Total Protein 6.9, Albumin 4.4, Globulin 2.5, Albumin/Globulin Ratio 1.8 08/30/23 09:32: Corrected WBC 7.0, Uncorrected WBC Count 7.0, RBC 3.96, Hgb 12.3L, Hct 36.8 L, MCV 92.8, MCH 30.9, MCHC 33.3, RDW 14.8, Plt Count 206, MPV 7.6, Neut % (Auto) 65.9, Lymph % (Auto) 21.9, [place] % (Auto) 7.9, Eos % (Auto) 3.8, Baso % (Auto) 0.5, Nucleat RBC Rel Count 0.1, Neut # (Auto) 4.6, Lymph # (Auto) 1.5, [place] # (Auto) 0.5, Eos # (Auto) 0.3, Baso # (Auto) 0.0 - Home Medications and Allergies Allergies/Adverse Reactions: Allergies Iiqscgl-PLI-OsM Reductase Inhibitor [Ytnbreq-Ztu-Llr Reductase Inhibitor] Allergy (Verified 03/03/23 13:45) Muscle [...] by Chivo Keller II, DO> 09/01/23 1414 [facility] Work Phone: Progress note Author Chivo Keller [facility] March 01, 2024 11:39am Note Date/Time March 01, 2024 11:18 am [facility] [place] [address] Cancer Center Note Signed Patient: Nas Ren MR#: [id number] : 1940 Acct:[id number] Age/Sex: 83 / M Type: REG AMB [...] yearly through year 5. Colonoscopy scheduled for 2023. Dr. Rascon. Will continue to monitor [...] Allergy (Unknown, Verified 12/18/23 10:02) Unknown Reaction Seftxdy-AGX-KyH Reductase Inhibitor [Uxqwcxw-Rpt-Wja Reductase Inhibitor] Allergy (Unknown, Verified 12/18/23 10:02) [...] PO DAILY ezetimibe 10 mg PO DAILY towpjatvuzc-biuzkiuem-bdazqkly 200-62.5-25 mcg (Trelegy Ellipta) 1 inh inhalation [...] No concerns voiced at time of intake. [facility] Medical History Medical History (Updated 01/30/24 @ [...] by Chivo Keller II, DO> 03/01/24 1139 [facility] Work Phone: Summary Purpose Family History [...] section and content) DATE CREATED AUTHOR [facility]/09/2021 [facility] DATE CREATED AUTHOR AUTHOR'S ORGANIZ ATION 06/10/2022 [facility] DATE CREATED AUTHOR AUTHOR'S ORGANIZ ATION 03/01/2023 [facility] DATE CREATED AUTHOR AUTHOR'S ORGANIZ ATION 08/23/2024 [facility] EPIC DATE CREATED AUTHOR AUTHOR'S ORGANIZ ATION 08/24/2024 [facility] DATE CREATED AUTHOR AUTHOR'S ORGANIZ ATION 11/01/2024 [facility] Care Teams (unrecognized sec tion [...] DO Primary Care Provider Active Danuta Kelly NP-Saman Attending Provider Activ e Team Status: Inactive Member Role Status Dates Arnie Linda , DO Primary Care Provider Active Ramesh Rascon MD Attending Provider Active [employer] Relationship Specialty Start Date End Date Arnie Linda DO PCP - General Internal Medicine 11/11/21 [employer] Relationship Specialty Start Date End Date Arnie Linda MD [address] [place] [id number] PCP - General Internal Medicine 08/24/23 [employer] Relationship Specialty Start Date End Date Arnie Linda MD [address] [place] [id number] PCP - General Internal Medicine 08/24/23 [employer] Relationship Specialty Start Date End Date Arnie Linda MD [address] [place] [id number] PCP - General Internal Medicine [...] BE BASED ON THE PRIMARY CLINICAL RECORDS. [employer] provides no warranty or guarantee of the accuracy or completeness of information in this document.
[2024-11-07 11:46] LABS: Free T4 0.89 ng/dL (0.76-1.46)
[2024-11-07 11:48] LABS: Thyroid Stimulating Hormone 28.632 uIU/mL (0.358-3.740)
[2024-11-08 08:10] LABS: Triiodothyronine (T3) 54 ng/dL (71-180)
== END 2024-11-07 10:28 | disposition home or self-care (01) ==
LOC: LAB 10:27
PROVIDERS: PCP Internal Medicine; Visit Provider Internal Medicine
DX: E05.90 Thyrotoxicosis, unspecified without thyrotoxic crisis or storm (principal); Z79.899 Other long term (current) drug therapy
CPT/HCPCS: 36415; 84439; 84443; 84480

== ENCOUNTER 2024-12-19 09:45 | Outpatient (OUT) | payer MEDICARE, SELFPAY ==
--- OUTSIDE RECORDS SUMMARY | 2024-12-19 09:54 | XMS_ITS | CCD ---
Author Organization [facility] Care Team Providers Care Engagement Engineer Name Role Phone GILMER SALAZAR Attending Unavailable GILMER SALAZAR Admitting Unavailable ARNIE LINDA Referring Unavailable ARNIE LINDA Primary Care Unavailable DO Arnie Linda Primary Care Provider [phone] CHARLENE Kelly Attending Provider MD Kalia Sánchez Referring Provider DO Chivo Keller II Attending Provider MD Kalia Sánchez Referring Provider [phone] DO Chivo Keller II Attending Provider MD Ramesh Rascon Attending Provider DO Arnie Linda Primary Care Provider [phone] MD Ramesh Rascno Attending Provider MD Kalia Sánchez Referring Provider [phone] DO Chivo Keller II Attending Provider Arnie Linda Unavailable LAURA FERMIN Admitting Unavailable LAURA, FERMIN Attending Unavailable LAURAJESSEFERMIN Consulting Unavailable MADDI, DR SORENSON Primary Care [...] shaina SYED MD, AVERY Pedroza Attending Unavailab AVERY Ho MD Consulting Unavailab shaina LINDA, DR SORENSON Primary Care Unavailable MOUKARBEL, DR SEYMOUR Admitting Unavailable MOUKARBEL, DR SEYMOUR Attending Unavailable BALL, DR SORENSON Primary Care Unavailable DO Arnie Linda Primary Care Provider [phone] MD Kalia Sánchez Referring Provider Adamowicz II, DO Chivo Howell Attending Provider DO Arnie Linda Primary Care Provider [phone] MD Kalia Sánchez Referring Provider Adamowicz II, DO Chivo Howell Attending Provider Arnie Linda MD Primary Care Provider Ramesh Rascon Attending Unavailable Ramesh Rascon Admitting Unavailable Arnie Linda [facility] Unavailable Adamowicz II, Chivo Howell Attending Unavaila ble Adamowicz II, Chivo Howell Admitting Unavaila ble Kalia Sánchez Referring Unavailable Arnie Linda [facility] Unavailable MIKAYLA, MARIUSZ Referring Unavailable MIKAYLA, MARIUSZ Referring Unavailable BASHIR, GREG Referring Unavailable MIKAYLA, MARIUSZ Referring Unavailable BASHIR, GREG Referring Unavailable MIKAYLA, MARIUSZ Referring Unavailable MIKAYLA, MARIUSZ Referring Unavailable MIKAYLA, MARIUSZ Admitting Unavailable MIKAYLA, MARIUSZ Attending Unavailable MIKAYLA, MARIUSZ Referring Unavailable MIKAYLA, MARIUSZ Referring Unavailable MIKAYLA, MARIUSZ Referring Unavailable MIKAYLA, MARIUSZ Referring Unavailable MIKAYLA, MARIUSZ Referring Unavailable LORIENRRIQUE Attending Unavailable MIKAYLA, MARIUSZ Referring Unavailable LORIENRRIQUE Attending Unavailable MOUKARBELDAWN Attending Unavailable MIKAYLA, MARIUSZ Referring Unavailable MIKAYLA, MARIUSZ Referring Unavailable MIKAYLA, MARIUSZ Referring Unavailable BASHIR, GREG Referring Unavailable MIKAYLA, MARIUSZ Referring Unavailable MIKAYLA, MARIUSZ Referring Unavailable MIKAYLA, MARIUSZ Referring Unavailable MIKAYLA, MARIUSZ Referring Unavailable MIKAYLA, MARIUSZ Referring Unavailable MIKAYLA, MARIUSZ Attending Unavailable Arnie Linda DO Primary Care Provider Arnie Linda DO Primary Care Provider MARILIN CLAY Attending Unavailable RANDALL DELEON Attending Unavailable DANNA, MARILIN A Attending Unavailable Allergies Allergy Classification Reported Allergen(s) Allergy Type Date of Onset Reaction(s) Facility (3 sources) black walnut pollen extract; Translations: [QKXJYFA-ZZZ-FBZ REDUCTASE INHIBITORS] Drug Allergy 05-16-20 18 [facility] Repository (11 sources) traMADol; Translations: [TRAMADOL] Drug Allergy 03-30-20 Itching [facility] Repository (9 sources) Pnkyykw-VIC-AkN Reductase Inhibitor; Translations: [Kdmlfmt-HJF-ZqJ Reductase Inhibitor] Allergy to substance 06-03-20 Muscle Pain [facility] (13 sources) Albuterol Drug Allergy Unknown SPARQ [facility] [employer] Other (17 sources) ezetimibe Drug Allergy Unknown [employer] Other (13 sources) HMG-CoA reductase inhibitor Drug allergy Unknown [employer] Other (19 sources) Niacin Drug Allergy Unknown [employer] Other (19 sources) Simvastatin Drug Allergy 12-18-19 Unknown, Unknown Reaction [facility] (8 sources) Statins Depletion *DIETARY PRODUCTS/DIETARY MANAGE Propensity to adverse reactions Unknown SP[facility] [employer] Other (4 sources) Allergies Reconciled Propensity to adverse reactions Unknown [employer] Other (8 sources) Albuterol *ANTIASTHMATIC AND BRONCHODILATOR AGENTS Propensity to adverse reactions Comment:dedrick lala more with this [employer] Other (4 sources) patient allergy list reviewed by nurse or physicia Propensity to adverse reactions 04-04-20 Comment:Done [employer] Other (4 sources) Niacin Drug Allergy 12-18-19 Unknown, Unknown Reaction [facility] (1 source) Simvastatin Drug Allergy 08-22-20 [facility] Repository (1 source) traMADol Drug Allergy 08-22-20 [facility] Repository (4 sources) HMG-CoA reductase inhibitor Propensity to adverse reactions to drug 11-03-19 [facility] Medications Current Medications Medication Drug Class(es) Dates [...] 2021 1:35pm apixaban 2.5 mg oral tablet (20 sources) Factor Xa Inhibitor Start: 03-03-2023 take [...] 2023 1:00am cholecalciferol 0.125 mg oral tablet (16 sources) Vitamin D Start: 12-15-19 take 5000 [...] (20 sources) Dietary Cholesterol Absorption Inhibitor Start: 3 End: 4 take 1 tablet by mouth in the morning ezetimibe (ZETIA) 10 mg tablet Take 1 tablet (10 mg total) by mouth in the morning. 03/20/2023 03/19/2024 Active Fluticasone-Umeclidin- Vilant (Trelegy Ellipta) 200-62.5-25 MCG/ACT aerosol powder (7 sources) Fluticasone-Umec lid in-Vilant (Trelegy Ellipta) 200-62.5-25 MCG/ACT aerosol powder Inhale Active Fluticasone-Umeclidin- Vilanter (2 sources) Start: Fluticasone-Umeclid in-Vilanter (Trelegy Ellipta) 200-62.5-25 mcg blister with device Active 1 INH INHALATION Daily 90 90 February 15, 2024 12:00am furosemide 80 mg oral tablet (6 sources) Loop Diuretic Start: 3 take 1 tablet by mouth once daily furosemide (LASIX) 80 mg tablet Take 1 tablet (80 mg total) by mouth daily. 90 tablet 3 10/05/2023 Active hydrALAZINE hydrochloride 100 mg oral tablet (20 sources) Arteriolar Vasodilator Start: 1 take 100 mg by mouth three times daily Hydralazine Active 100 MG PO Three times daily 90 June 09, 2021 12:00am Start: 06-09-2021 End: [...] once daily for 30 DAYS Start: 02-08-2024 End: 02-08-2024 take 0.5 tablet by mouth every other day methIMAzole (TAPAZOLE) 10 mg [...] 2021 1:37pm take 2 tablets by mo [facility] every twenty-four hours in the morning metoprolol [...] TRELEGY ELLIPTA 200-62.5-25 mcg blister with device (4 sources) Start: 02-22-2023 take 1 puff(s) by inhalation [...] Ellipta Discontinued 62.5 mcg inhalation Daily June 08, 2021 11:00pm August 02, [...] 02, 2021 1:40pm take 1 tablet by daoktah th once daily bumetanide (Bumex) 2 MG [...] August 02, 2021 1:40pm polyethylene glycol 3350 28332 mg powder for oral solution (8 sources) [...] Coronary arteriosclerosis; Translations: [Atherosclerotic heart disease of tribal coronary artery without angina pectoris] Onset: 03-09-2022 08-31-2021 Chronic Deficiency and other anemia (8 sources) Iron deficiency anemia; Translations: [Iron deficiency anemia, unspecified] 08-31-2021 Episodic Diabetes mellitus with complications (20 sources) Hyperglycemia due to type 2 diabetes mellitus; Translations: [Type 2 diabetes mellitus with hyperglycemia] Onset: 10-16-1957 Chronic Diabetes mellitus without complication (14 sources) Type 2 diabetes mellitus; Translations: [Type [...] 10-06-2022 08-31-2021 Chronic Miscellaneous mental health disorders (9 sources) Primary insomnia; Translations: [Primary insomnia] Onset: [...] ear and sense organ disorders (1 source) Sensorineural hearing loss, bilateral; Translations: [Sensorineural hearing loss, bilateral] 12-04-2024 Chronic Other ear and sense organ disorders (1 [...] sleep apnea (adult)(pediatric)] Chronic Residual codes; unclassified (9 sources) Hypersomnia; Translations: [Hypersomnia, unspecified] Onset: 07-08-2024 [...] unspecified without thyrotoxic crisis or storm] Onset: 05-20-2022 Resolved: 03-14-2022 Chronic Unclassified (1 source) CHRN [...] 12-28-2017 Episodic Other aftercare (1 source) Other terminologist (current) drug therapy; Translations: [OTH SENIOR CARE CURRENT DRUG THERAPY] Onset: 03-09-2022 Episodic Other [...] Test Name Value Interpretation Reference Range Facility Follow-Upon 11-13-2024 Follow-Up [id number] Nas Ren 1940 M Date Provider Department Center 11/13/2024 Idalmis-ENRRIQUE MCKEON CARD [facility] Family History Problem Relation Age of Onset Diabetes Mother Heart disease Father Glaucoma Brother Diabetes Maternal Grandmother Clotting disorder Other Family Status - Relation Status Age at Mother Father Brother Maternal Grandmother Other Level of Service:56339 MS OFFICE/OUTPATIENT ESTABLISHED LOW MDM 20 MIN Reason for Visit and Comments: Atrial Fibrillation [80] Atrial Flutter [101] Normal [facility] HPon 10-17-2024 [facility] Electrophysiology Consult Note Reason for visit: Afib and dilated CMP. 10/17/24 Pt here for DCCV. Device check reveals atrial flutter with V pacing, 09/10/24 Patient underwent DIRECTOR TEEN POST-D upgrade procedure on 06/12/2023. Subsequent echocardiogram in #3 showed EF of 25 to 30%. EKG [...] infrahisian disease. He was brought back to [facility] on 02/12/2020 due to what was discussed [...] (CMS/HCC) Chronic k (more content not included)... [facility] NURSNOTEon 10-17-2024 NURSNOTE RN educated pt and on discharge instructions. RN encouraged pt to voice any questions or concerns. Pt verbalizes no questions or concerns at this time. Pt was wheeled off unit with all belongings. [facility] Orders Onlyon 10-10-2024 Orders Only [id number] Nas Ren 1940 M Date Provider Department [place] 10/10/2024 [facility] VAS LAB AR HeartVAS Family History Problem Relation Age of Onset Diabetes Mother Heart disease Father Glaucoma Brother Diabetes Maternal Grandmother Clotting disorder Other Family Status - Relation Status Age at Mother Father Brother Maternal Grandmother Other [facility] 36on 09-20-2024 36 Regarding echo result from 09/19/2024: Per Dr. Montoya - EF has improved. Will repeat echo in 6 months. Order entered and faxed to [facility]. Patient and his informed. [facility] Office Visiton 09-10-2024 Follow-up visit [id number] Nas Ren 1940 M Date Provider Department Center 09/10/2024 MARIUSZ LOPEZ DARWIN [facility] Family History Problem Relation Age of Onset Diabetes Mother Heart disease Father Glaucoma Brother Diabetes Maternal Grandmother Clotting disorder Other Family Status - Relation Status Age at Mother Father Brother Maternal Grandmother Other Level of Service:61827 MS OFFICE/OUTPATIENT ESTABLISHED LOW MDM 20 MIN Normal [facility] Glucose Poct Glucometerson 1 10-22-2023 Commemt1 Glu2: Cleaned Meter Normal [facility] Comment on above: Result Comment: PERF ORMED BY: [facility] [address] [place] [address] PATHOLOGIST ENTERTAINMENT DIRECTOR TRU UMANZOR M.D. Performed By: #### G LULS #### Point of Care testing , Glucose [Mass/Vol] 112 mg/dL Normal [facility] Comment on above: Result Comment: [facility] Glucose Reference Range is dependent on time and content of last meal. Glucose of more than 200 mg/dL in a nonstressed, ambulatory subject supports the diagnosis of Diabetes Mellitus. Performed By: #### G CONI #### Point of Care testing , Vijay 08-22-2024 L Specimen: [id number] Received: 08/22/24 Status: ДМИТРИЙ Barry Num: [id number] Spec Type: Surgical Subm Dr: Ramesh Rascon MD Tissues: A Colon Biopsy (TRANSVERSEPOLYPS) B Colon Biopsy (DESCENDING POLYPS) C Colon Biopsy (SIGMOID POLYPS) Procedures: HE/Julieta Harding/Micro L4/3 Age/ Patient Sex Location Account Attending Physician Nas Ren 84/M [id number] Ramesh Rascon MD SPEC NUM: [id number] RECD: 08/22/24 STATUS: ДМИТРИЙ BARRY NUM: [id number] LLOYD: 08/22/24 DR: Ramesh Rascon MD ENTERED: 08/22/[address] [facility] [address]: SPEC TYPE: Surgical DEPT: S ENTERED BY: [id number] RECV BY: [id number] ORDERED: HE/6, Gross/Micro L4/3 ORDERED: HE/6, Gross/Micro [...] submitted in a single cassette. (1, ns, [id number] A) JG B received in formalin labeled descending polyps are 5 staley-parr, focally erythematous, friable, 0.2 to 0.5 cm polypoid fragments. The specimen is entirely submitted in a single cassette. (1, ns, [id number] B) JG C. Received in formalin labeled sigmoid polyps are 4 staley-parr, focally erythematous, Specimen: [id number] Received: 08/22/24 Status: ДМИТРИЙ Barry Num: [id number] Spec Type: Surgical Subm Dr: Ramesh Rascon MD Tissues: A Colon Biopsy (TRANSVERSEPOLYPS) B Colon Biopsy (DESCENDING POLYPS) C Colon Biopsy (SIGMOID POLYPS) Procedures: Julieta HELLER/Micro L4/3 Patient: MelodyNas Jefry [id number] (Continued) Specimen: [id number] Received: 08/22/24 (Continued) Gross Description (Continued) Signed (signature on file) Logan Ruiz MD 08/23/24925 Specimen: [id number] Received: 08/22/24 Status: ДМИТРИЙ Barry Num: [id number] Spec Type: Surgical Subm Dr: Ramesh Rascon MD Tissues: A Colon Biopsy (TRANSVERSEPOLYPS) B Colon Biopsy (DESCENDING POLYPS) C Colon Biopsy (SIGMOID POLYPS) Procedures: Julieta HELLER/Srinivas L4/3 Patient: Nas Ren [id number] (Continued) Specimen: [id number] Received: 08/22/24 (Continued) Gross Description (Continued) friable, 0.2 to 0.4 cm polypoid fragments. The specimen is entirely submitted in a single cassette. (1, ns, [id number] C) J CPT Codes 88 305 x 3 Specimen: [id number] Received: 08/22/24 Status: ДМИТРИЙ Barry Num: [id number] Spec Type: Surgical Subm Dr: Ramesh Rascon MD Tissues: A Colon Biopsy (TRANSVERSEPOLYPS) B Colon Biopsy (DESCENDING POLYPS) C Colon Biopsy (SIGMOID POLYPS) Procedures: HE/6, Gross/Micro L4/3 Patient: Nas Ren [id number] (Continued) Signed (signature on file) Logan Ruiz MD 08/23/24925 Normal [facility] 36on 08-12-2024 36 Okay to hold Eliquis 2 days prior to colonoscopy. Thanks Normal [facility] Office Visiton 07-24-2024 Follow-up visit [id number] Nas Ren 1940 M Date Provider Department Center 07/24/2024 ENRRIQUE TAVAREZ Family History Problem Relation Age of Onset Diabetes Mother Heart disease Father Glaucoma Brother Diabetes Maternal Grandmother Clotting disorder Other Family Status - Relation Status Age at Mother Father Brother Maternal Grandmother Other Level of Service:74111 MS OFFICE/OUTPATIENT ESTABLISHED MOD MDM 30 MIN Reason for Visit and Comments: Atrial Fibrillation [80] Coronary Artery Disease [187] Normal [facility] Office Visiton 03-29-2024 Follow-up visit [id number] Nas Ren 1940 M Date Provider Department Center 03/29/2024 Gregory-DAWN ORTIZ Family History Problem Relation Age of Onset Diabetes Mother Heart disease Father Glaucoma Brother Diabetes Maternal Grandmother Clotting disorder Other Family Status - Relation Status Age at Mother Father Brother Maternal Grandmother Other Level of Service:58661 MS OFFICE/OUTPATIENT ESTABLISHED LOW MDM 20 MIN Normal [facility] Alanine aminotransferase [En zymatic activity/volume] in Serum or PlasmaOrdered By: Chivo Keller on 02-22-2024 ALT [Catalytic activity/Vol] 15 U/L Normal 7-52 [facility] Comment on above: Performed By: #### V [id number], TONY, CMP, FE and TIBC, CBC #### [facility] [address] #### SPE, KAPPA, LEXI SERUM #### [facility] , Albumin [Mass/volume] in Ser um or PlasmaOrdered By: Chivo Keller on 02-22-2024 Albumin [Mass/Vol] 3.9 g/dL Normal 2.9-4.4 [facility] Comment on above: Performed By: #### V [id number], TONY, CMP, FE and TIBC, CBC ####[facility] [place] [address] [place]#### SPE, KAPPA, LEXI SERUM ####[facility] , Albumin [Mass/volume] in Ser um or Plasma by Bromocresol green (BCG) dye binding methoOrdered By: Chivo Keller on 02-22-2024 Albumin BCG dye [Mass/Vol] 4.4 g/dL 3.5-5.7 [facility] Alkaline phosphatase [Enzyma tic activity/volume] in Serum or PlasmaOrdered By: Chivo Keller on 02-22-2024 ALP [Catalytic activity/Vol] 100 U/L Normal 34-104 [facility] Comment on above: Performed By: #### V [id number], TONY, CMP, FE and TIBC, CBC #### [facility] [address] [place] [address] [place] #### SPE, KAPPA, LEXI SERUM #### [facility] , Aspartate aminotransferase [ Enzymatic activity/volume] in Serum or PlasmaOrdered By: Chivo Keller on 02-22-2024 AST [Catalytic activity/Vol] 18 U/L Normal 13-39 [facility] Comment on above: Performed By: #### V [id number], TONY, CMP, FE and TIBC, CBC #### [address] #### SPE, KAPPA, LEXI SERUM #### [facility] , Automated basophil %Ordered By: Chivo Keller on 02-22-2024 Basophils/100 WBC (Bld) 0.5 % Normal . [facility] Comment on above: Performed By: #### V [id number], TONY, CMP, FE and TIBC, CBC #### [address] #### SPE, KAPPA, LEXI SERUM #### [facility] , Automated basophil countOrde red By: Chivo Keller on 02-22-2024 Basophils (Bld) [#/Vol] 0.0 10*3/uL Normal 0.0-0.2 [facility] Comment on above: Result Comment: PERF ORMED BY: [place] [address] PATHOLOGIST ENTERTAINMENT DIRECTOR TRU UMANZOR M.D. Performed By: #### V [id number], TONY, CMP, FE and TIBC, CBC #### [address] #### SPE, KAPPA, LEXI SERUM #### [facility] , Automated blood monocyte cou ntOrdered By: Chivo Keller on 02-22-2024 Monocytes (Bld) [#/Vol] 0.8 10*3/uL Normal 0.0-0.8 [facility] Comment on above: Performed By: #### V [id number], TONY, CMP, FE and TIBC, CBC #### [place] [address] [place] #### SPE, KAPPA, LEXI SERUM #### [facility] , Automated eosinophil %Ordere d By: Chivo Keller on 02-22-2024 Eosinophils/100 WBC (Bld) 3.8 % Normal . [facility] Comment on above: Performed By: #### V [id number], TONY, CMP, FE and TIBC, CBC #### [place] [address] [place] #### SPE, KAPPA, LEXI SERUM #### [facility] , Automated eosinophil countOr dered By: Chivo Keller on 02-22-2024 Eosinophils (Bld) [#/Vol] 0.3 10*3/uL Normal 0.0-0.45 [facility] Comment on above: Performed By: #### V [id number], TONY, CMP, FE and TIBC, CBC #### [place] [address] [place] #### SPE, KAPPA, LEXI SERUM #### [facility] , Automated monocyte %Ordered By: Chivo Keller on 02-22-2024 Monocytes/100 WBC (Bld) 10.0 % Normal . [facility] Comment on above: Performed By: #### V [id number], TONY, CMP, FE and TIBC, CBC #### [address] #### SPE, KAPPA, LEXI SERUM #### [facility] , Automated neutrophil %Ordere d By: Chivo Keller on 02-22-2024 Neutrophils/100 WBC (Bld) 66.6 % Normal . [facility] Comment on above: Performed By: #### V [id number], TONY, CMP, FE and TIBC, CBC #### [place] [address] [place] #### SPE, KAPPA, LEXI SERUM #### [facility] , Bilirubin.total [Mass/volume ] in Serum or PlasmaOrdered By: Chivo Keller on 02-22-2024 Bilirubin [Mass/Vol] 0.7 mg/dL Normal 0.3-1.0 [facility] Comment on above: Performed By: #### V [id number], TONY, CMP, FE and TIBC, CBC #### [facility] [address] [place] [address] [place] #### SPE, KAPPA, LEXI SERUM #### [facility] , CT abdomen pelvis wo conon 0 02-22-2024 CT abdomen pelvis wo con [facility] [address] [place] [address] [place] [address] CT Scan Report Signed Patient: Nas Ren MR#: [id number] 24 : 1940 Acct:[id number] Age/Sex: 83 / M ADM Date: 02/22/24 Loc: Room: Type: [facility] Attending Dr: Chivo Keller II DO Copies to: Chivo Keller II, DO Ordering Provider: Chivo Keller II, DO Date of Service: 02/22/24 CT/CT abdomen pelvis wo con: surveilance ([id number]) CT/CT chest wo con: surveilance CT chest [...] Michaela Bernard M.D.02/22/2024 2:03 PM Dictation Location: [place] [address] Transcribed By: [facility] 02/22/24 1403 Dictated By: Michaela Bernard II, MD 02/22/24 1351 Signed By: 02/22/24 1403 Normal [facility] Calcium [Mass/volume] in Ser um or PlasmaOrdered By: Chivo Keller on 02-22-2024 Calcium [Mass/Vol] 9.4 mg/dL Normal 8.6-10.3 [facility] Comment on above: Performed By: #### V [id number], TONY, CMP, FE and TIBC, CBC #### [address] #### SPE, KAPPA, LEXI SERUM #### [facility] , Carbon dioxide, total [Moles /volume] in Serum or PlasmaOrdered By: Chivo Keller on 02-22-2024 CO2 [Moles/Vol] 33.2 mmol/L High 21.0-31.0 [facility] Comment on above: Performed By: #### V [id number], TONY, CMP, FE and TIBC, CBC #### [place] [address] [place] #### SPE, KAPPA, LEXI SERUM #### [facility] , Chloride [Moles/volume] in S alayna or PlasmaOrdered By: Chivo Keller on 02-22-2024 Chloride [Moles/Vol] 100 mmol/L Normal 98-107 [facility] Comment on above: Performed By: #### V [id number], TONY, CMP, FE and TIBC, CBC #### [place] [address] [place] #### SPE, KAPPA, LEXI SERUM #### [facility] , Complete Blood Count Auto Di ffon 02-22-2024 Mean Corpuscular HGB Conc 33.9 g/dL Normal 32.5-35.6 [facility] Comment on above: Performed By: #### V [id number], TONY, CMP, FE and TIBC, CBC #### [place] [address] [place] #### SPE, KAPPA, LEXI SERUM #### [facility] , NRBC% 0.0 /100{WBC} Normal 0-0.5 [facility] Comment on above: Performed By: #### V [id number], TONY, CMP, FE and TIBC, CBC #### [place] [address] [place] #### SPE, KAPPA, LEXI SERUM #### [facility] , Comprehensive Metabolic Pane vijay 02-22-2024 Albumin [Mass/Vol] 4.4 g/dL Normal 3.5-5.7 [facility] Comment on above: Performed By: #### V [id number], TONY, CMP, FE and TIBC, CBC #### [place] [address] [place] #### SPE, KAPPA, LEXI SERUM #### [facility] , Creatinine Clr Calc Pharmacy 29.06 Normal [facility] Comment on above: Performed By: #### V [id number], TONY, CMP, FE and TIBC, CBC #### [place] [address] [place] #### SPE, KAPPA, LEXI SERUM #### [facility] , GFR/1.73 sq M.predicted MDRD (S/P/Bld) [Vol rate/Area] 26.711 mL/min/{1.73_m2} Normal [facility] Comment on above: Performed By: #### V [id number], TONY, CMP, FE and TIBC, CBC #### [place] [address] [place] #### SPE, KAPPA, LEXI SERUM #### [facility] , Creatinine [Mass/volume] in Serum or PlasmaOrdered By: Chivo Keller on 02-22-2024 Creatinine [Mass/Vol] 2.38 mg/dL High 0.70-1.30 [facility] Comment on above: Performed By: #### V [id number], TONY, CMP, FE and TIBC, CBC #### [place] [address] [place] #### SPE, KAPPA, LEXI SERUM #### [facility] , Erythrocyte distribution wid th [Ratio] by Automated countOrdered By: Chivo Keller on 02-22-2024 Erythrocyte distribution width (RBC) [Ratio] 14.6 % Normal 12.0-14.8 [facility] Comment on above: Performed By: #### V [id number], TONY, CMP, FE and TIBC, CBC #### [place] [address] [place] #### SPE, KAPPA, LEXI SERUM #### [facility] , Erythrocytes [#/volume] in B lood by Automated countOrdered By: Chivo Keller on 02-22-2024 RBC (Bld) [#/Vol] 4.09 10*6/uL Normal 3.90-5.60 [facility] Comment on above: Performed By: #### V [id number], TONY, CMP, FE and TIBC, CBC #### [place] [address] [place] #### SPE, KAPPA, LEXI SERUM #### [facility] , Ferritin [Mass/volume] in Se rum or PlasmaOrdered By: Chivo Keller on 02-22-2024 Ferritin [Mass/Vol] 236.8 ng/mL Normal 23.9-336.2 [facility] Comment on above: Performed By: #### V [id number], TONY, CMP, FE and TIBC, CBC #### [facility] [address] [place] [address] [place] #### SPE, KAPPA, LEXI SERUM #### [facility] , Folate [Mass/volume] in Seru m or PlasmaOrdered By: Chivo Keller on 02-22-2024 Folate [Mass/Vol] 36.0 ng/mL >5.9 [facility] Comment on above: Folate reference ran ge: >5.9 ng/mlThe WHO technical consultation on folate and vitamin [id number] has determined that folate concentrations lessthan 4 ng/ml are considered deficient. Free K+L LT Chains, Qn, Son 02-22-2024 Free [place] Light Chains, S 56.1 mg/L High 3.3-19.4 [facility] Comment on above: Performed By: #### V [id number], TONY, CMP, FE and TIBC, CBC ####[place] [address] [address]#### SPE, KAPPA, LEXI SERUM ####[facility] , Free [place] Light Chains, S 37.2 mg/L High 5.7-26.3 [facility] Comment on above: Performed By: #### V [id number], TONY, CMP, FE and TIBC, CBC ####[place] [address] [address]#### SPE, KAPPA, LEXI SERUM ####[facility] , [place]/Lambda Ratio, S 1.51 Normal 0.26-1.65 [facility] Comment on above: Result Comment: Perf ormed at: CB - [facility] [address] [id number] Dog Handler: Nathan Munoz PhD, Phone: [phone] PERFORMED BY: [facility] [address] [place] [address] PATHOLOGIST ENTERTAINMENT DIRECTOR TRU UMANZOR M.D. Performed By: #### V [id number], TONY, CMP, FE and TIBC, CBC ####[address]#### SPE, KAPPA, LEXI SERUM ####[facility] , Glucose [Mass/volume] in Ser um or PlasmaOrdered By: Chivo Keller on 02-22-2024 Glucose [Mass/Vol] 129 mg/dL High 70-100 [facility] Comment on above: ADA recommended refe rence rangeRandom Glucose Reference Range is dependent on time and content of last meal. Glucose of more than 200 mg/dL in a nonstressed, ambulatory subject supports the diagnosis of Diabetes Mellitus. Result Comment: [place] om Glucose Reference Range is dependent on time and content of last meal. Glucose of more than 200 mg/dL in a nonstressed, ambulatory subject supports the diagnosis of Diabetes Mellitus. ADA recommended reference range Performed By: #### V [id number], TONY, CMP, FE and TIBC, CBC #### [address] #### SPE, KAPPA, LEXI SERUM #### [facility] , Hematocrit [Volume Fraction] of Blood by Automated countOrdered By: Chivo Keller on 02-22-2024 Hematocrit (Bld) [Volume fraction] 38.1 % Low 38.8-50.0 [facility] Comment on above: Performed By: #### V [id number], TONY, CMP, FE and TIBC, CBC #### [address] #### SPE, KAPPA, LEXI SERUM #### [facility] , Hemoglobin [Mass/volume] in BloodOrdered By: Chivo Keller on 02-22-2024 Hemoglobin (Bld) [Mass/Vol] 12.9 g/dL Low 13.0-17.0 [facility] Comment on above: Performed By: #### V [id number], TONY, CMP, FE and TIBC, CBC #### [place] [address] [place] #### SPE, KAPPA, LEXI SERUM #### [facility] , IgA [Mass/volume] in Serum o r PlasmaOrdered By: Chivo Keller on 02-22-2024 IgA [Mass/Vol] 179 mg/dL 61-437 [facility] IgG [Mass/volume] in Serum o r PlasmaOrdered By: Chivo Keller on 02-22-2024 IgG [Mass/Vol] 987 mg/dL 603-1613 [facility] IgM [Mass/volume] in Serum o r PlasmaOrdered By: Chivo Keller on 02-22-2024 IgM [Mass/Vol] 143 mg/dL 15-143 [facility] Comment on above: Performed at: - [facility] [address] [place], [place] [id number] Director: Nathan Munoz PhD, Phone: [phone] Immunofixation,Serumon 02-21 Immunofixation, Serum Normal . [facility] Comment on above: Result Comment: No m onoclonality detected. Performed By: #### V [id number], TONY, CMP, FE and TIBC, CBC #### [address] #### SPE, KAPPA, LEXI SERUM #### [facility] , Immunoglobulin A, Serum 179 mg/dL Normal 61-437 [facility] Comment on above: Performed By: #### V [id number], TONY, CMP, FE and TIBC, CBC #### [address] #### SPE, KAPPA, LEXI SERUM #### [facility] , Immunoglobulin G 987 mg/dL Normal 603-1613 [facility] Comment on above: Performed By: #### V [id number], TONY, CMP, FE and TIBC, CBC #### [address] #### SPE, KAPPA, LEXI SERUM #### [facility] , Immunoglobulin M, Serum 143 mg/dL Normal 15-143 [facility] Comment on above: Result Comment: Perf ormed at: - [facility] [address] [place], [place] [id number] Dog Handler: Nathan Munoz PhD, Phone: [phone] Performed By: #### V [id number], TONY, CMP, FE and TIBC, CBC #### [place] [address] [place] #### SPE, KAPPA, LEXI SERUM #### [facility] , Immunoglobulin light chains. kappa.free [Mass/volume] in SerumOrdered By: Chivo Keller on 02-22-2024 Immunoglobulin light chains.kappa.free (S) [Mass/Vol] 56.1 mg/L High 3.3-19.4 [facility] Immunoglobulin light chains. kappa.free/Immunoglobulin light chains.lambda.free [MassOrdered By: Chivo Keller on 02-22-2024 Immunoglobulin light chains.kappa.free/Immun oglobulin light chains.lambda.free (S) [Mass ratio] 1.51 0.26-1.65 [facility] Comment on above: Performed at: [address] [id number] Director: Nathan Munoz PhD, Phone: [phone] Immunoglobulin light chains. lambda.free [Mass/volume] in Serum or PlasmaOrdered By: Chivo Keller on 02-22-2024 Immunoglobulin light chains.lambda.free [Mass/Vol] 37.2 mg/L High 5.7-26.3 [facility] Iron [Mass/volume] in Serum or PlasmaOrdered By: Chivo Keller on 02-22-2024 Iron [Mass/Vol] 85 ug/dL Normal 50-212 [facility] Comment on above: Performed By: #### V [id number], TONY, CMP, FE and TIBC, CBC #### [facility] [address] [place] [address] [place] #### SPE, KAPPA, LEXI SERUM #### [facility] , Iron and TIBC Profileon 05 % Iron Saturation 30.2 % Normal 20-50 [facility] Comment on above: Performed By: #### V [id number], TONY, CMP, FE and TIBC, CBC #### [facility] [address] [place] [address] [place] #### SPE, KAPPA, LEXI SERUM #### [facility] , Total Iron Binding Capacity 281 ug/dL Normal 255-450 [facility] Comment on above: Performed By: #### V [id number], TONY, CMP, FE and TIBC, CBC #### [facility] [address] [place] [address] #### SPE, KAPPA, LEXI SERUM #### [facility] , Iron binding capacity [Mass/ volume] in Serum or PlasmaOrdered By: Chivo Keller on 02-22-2024 Iron binding capacity [Mass/Vol] 281 ug/dL 255-450 [facility] Iron saturation [Mass Fracti on] in Serum or PlasmaOrdered By: Chivo Keller on 02-22-2024 Iron saturation [Mass fraction] 30.2 % 20-50 [facility] Leukocytes [#/volume] correc bonnie for nucleated erythrocytes in Blood by Automated counOrdered By: Chivo Keller on 02-22-2024 WBC corrected for nucl RBC Auto (Bld) [#/Vol] 7.5 10*3/uL 4.1-10.5 [facility] Leukocytes [#/volume] in Blo od by Automated countOrdered By: Chivo Keller on 02-22-2024 WBC (Bld) [#/Vol] 7.5 10*3/uL Normal 4.1-10.5 [facility] Comment on above: Performed By: #### V [id number], TONY, CMP, FE and TIBC, CBC #### [facility] [address] [place] [address] #### SPE, KAPPA, LEXI SERUM #### [facility] , Lymphocytes [#/volume] in Bl ood by Automated countOrdered By: Chivo Keller on 02-22-2024 Lymphocytes (Bld) [#/Vol] 1.4 10*3/uL Normal 1.00-4.8 [facility] Comment on above: Performed By: #### V [id number], TONY, CMP, FE and TIBC, CBC #### [facility] [address] [place] [address] [place] #### SPE, KAPPA, LEXI SERUM #### [facility] , Lymphocytes/100 leukocytes i n Blood by Automated countOrdered By: Chivo Keller on 02-22-2024 Lymphocytes/100 WBC (Bld) 19.1 % Normal . [facility] Comment on above: Performed By: #### V [id number], TONY, CMP, FE and TIBC, CBC #### [place] [address] [place] #### SPE, KAPPA, LEXI SERUM #### [facility] , MCH [Entitic mass] by Automa bonnie countOrdered By: Chivo Keller on 02-22-2024 MCH (RBC) [Entitic mass] 31.6 pg Normal 27.5-35.2 [facility] Comment on above: Performed By: #### V [id number], TONY, CMP, FE and TIBC, CBC #### [place] [address] [place] #### SPE, KAPPA, LEXI SERUM #### [facility] , MCHC Auto (RBC) [Mass/Vol]Or dered By: Chivo Keller on 02-22-2024 MCHC (RBC) [Mass/Vol] 33.9 g/dL 32.5-35.6 [facility] MCV [Entitic volume] by Auto mated countOrdered By: Chivo Keller on 02-22-2024 MCV (RBC) [Entitic vol] 93.2 fL Normal 83.5-101 [facility] Comment on above: Performed By: #### V [id number], TONY, CMP, FE and TIBC, CBC #### [place] [address] [place] #### SPE, KAPPA, LEXI SERUM #### [facility] , Neutrophils [#/volume] in Bl ood by Automated countOrdered By: Chivo Keller on 02-22-2024 Neutrophils (Bld) [#/Vol] 5.0 10*3/uL Normal 1.8-7.7 [facility] Comment on above: Performed By: #### V [id number], TONY, CMP, FE and TIBC, CBC #### [place] [address] [place] #### SPE, KAPPA, LEXI SERUM #### [facility] , No Panel InformationOrdered By: Chivo Keller on 02-22-2024 Protein Electrophoresis M-Tobi Not observed g/dL Not Observed [facility] Protein Electrophoresis Note See comment . [facility] Comment on above: Protein electrophore sis scan will follow via computer,mail, or metallurgical inspector delivery.Performed at: [place] [id number] Director: Nathan Munoz PhD, Phone: [phone] Serum Immunofixation See comment . [facility] Comment on above: No monoclonality det ected. Estimated GFR (CKD-EPI) 26.711 mL/Min [facility] Pharmacy Creatinine Clearance (Chem 29.06 [facility] Nucleated erythrocytes [Pres ence] in Blood by Automated countOrdered By: Chivo Keller on 02-22-2024 Nucleated RBC Auto Ql (Bld) 0.0 /100{WBC} 0-0.5 [facility] Platelet mean volume [Entiti c volume] in Blood by Automated countOrdered By: Chivo Keller on 02-22-2024 Platelet mean volume (Bld) [Entitic vol] 7.6 fL Normal 6.6-10.1 [facility] Comment on above: Performed By: #### V [id number], TONY, CMP, FE and TIBC, CBC #### [facility] [address] [place] [address] [place] #### SPE, KAPPA, LEXI SERUM #### [facility] , Platelets [#/volume] in Bloo d by Automated countOrdered By: Chivo Keller on 02-22-2024 Platelets (Bld) [#/Vol] 196 10*3/uL Normal 150-450 [facility] Comment on above: Performed By: #### V [id number], TONY, CMP, FE and TIBC, CBC #### [facility] [address] [place] [address] [place] #### SPE, KAPPA, LEXI SERUM #### [facility] , Potassium [Moles/volume] in Serum or PlasmaOrdered By: Chivo Keller on 02-22-2024 Potassium [Moles/Vol] 3.8 mmol/L Normal 3.5-5.1 [facility] Comment on above: Performed By: #### V [id number], TONY, CMP, FE and TIBC, CBC #### [facility] [address] [place] [address] [place] #### SPE, KAPPA, LEXI SERUM #### [facility] , Protein Electrophoresis, Ser umon 02-22-2024 Oimcn-7-Gkduzzuf 0.2 g/dL Normal 0.0-0.4 [facility] Comment on above: Performed By: #### V [id number], TONY, CMP, FE and TIBC, CBC ####[address]#### SPE, KAPPA, LEXI SERUM ####[facility] , Zgyri-2-Gcthucma 0.8 g/dL Normal 0.4-1.0 [facility] Comment on above: Performed By: #### V [id number], TONY, CMP, FE and TIBC, CBC ####[place] [address] [address]#### SPE, KAPPA, LEXI SERUM ####[facility] , Beta Globulin 0.9 g/dL Normal 0.7-1.3 [facility] Comment on above: Performed By: #### V [id number], TONY, CMP, FE and TIBC, CBC ####[place] [address] [place]#### SPE, KAPPA, LEXI SERUM ####[facility] , Gamma Globulin 1.0 g/dL Normal 0.4-1.8 [facility] Comment on above: Performed By: #### V [id number], TONY, CMP, FE and TIBC, CBC ####[address] [place] [address] [place]#### SPE, KAPPA, LEXI SERUM ####[facility] , M-Tobi Not Observed Normal Not Observed [facility] Comment on above: Performed By: #### V [id number], TONY, CMP, FE and TIBC, CBC ####[address]#### SPE, KAPPA, LEXI SERUM ####[facility] , SPE-Note Normal . [facility] Comment on above: Result Comment: Prot ein electrophoresis scan will follow via computer, mail, or metallurgical inspector delivery. Performed at: [facility] [employer] [id number] Dog Handler: Nathan Munoz PhD, Phone: [phone] Performed By: #### V [id number], TONY, CMP, FE and TIBC, CBC ####[address]#### SPE, KAPPA, LEXI SERUM ####[facility] , Protein [Mass/volume] in Ser um or PlasmaOrdered By: Chivo Keller on 02-22-2024 Protein [Mass/Vol] 6.8 g/dL Normal 6.0-8.5 [facility] Comment on above: Performed By: #### V [id number], TONY, CMP, FE and TIBC, CBC ####[place] [address] [place] [address] [place]#### SPE, KAPPA, LEXI SERUM ####[facility] , Protein [Mass/Vol] 7.4 g/dL Normal 6.4-8.9 [facility] Comment on above: Performed By: #### V [id number], TONY, CMP, FE and TIBC, CBC #### [facility] [address] [place] [address] [place] #### SPE, KAPPA, LEXI SERUM #### [facility] , Serum globulin measurement ( mass/volume)Ordered By: Chivo Keller on 02-22-2024 Globulin (S) [Mass/Vol] 2.9 g/dL Normal 2.2-3.9 [facility] Comment on above: Performed By: #### V [id number], TONY, CMP, FE and TIBC, CBC ####[facility] [place] [address] [place]#### SPE, KAPPA, LEXI SERUM ####[facility] , Serum globulin measurement b y calculation (mass/volume)Ordered By: Chivo Keller on 02-22-2024 Globulin (S) [Mass/Vol] 3.0 g/dL Normal F [facility] Comment on above: Performed By: #### V [id number], TONY, CMP, FE and TIBC, CBC #### [place] [address] [place] #### SPE, KAPPA, LEXI SERUM #### [facility] , Serum or plasma albumin/glob ulin mass ratioOrdered By: Chivo Keller on 02-22-2024 Albumin/Globulin [Mass ratio] 1.3 {ratio} Normal 0.7-1.7 [facility] Comment on above: Performed By: #### V [id number], TONY, CMP, FE and TIBC, CBC ####[place] [address] [place]#### SPE, KAPPA, LEXI SERUM ####[facility] , Albumin/Globulin [Mass ratio] 1.5 {ratio} Normal [facility] Comment on above: Performed By: #### V [id number], TONY, CMP, FE and TIBC, CBC #### [place] [address] [place] #### SPE, KAPPA, LEXI SERUM #### [facility] , Serum or plasma alpha 1 glob ulin measurement by electrophoresis (mass/volume)Ordered By: Chivo Keller on 02-22-2024 Alpha 1 globulin Elph [Mass/Vol] 0.2 g/dL 0.0-0.4 [facility] Serum or plasma alpha 2 glob ulin measurement by electrophoresis (mass/volume)Ordered By: Chivo Keller on 02-22-2024 Alpha 2 globulin Elph [Mass/Vol] 0.8 g/dL 0.4-1.0 [facility] Serum or plasma anion gap de terminationOrdered By: Chivo Keller on 02-22-2024 Anion gap [Moles/Vol] 10.6 mmol/L Normal 6.0-15.0 [facility] Comment on above: Performed By: #### V [id number], TONY, CMP, FE and TIBC, CBC #### [facility] [address] [place] [address] #### SPE, KAPPA, LEXI SERUM #### [facility] , Serum or plasma beta globuli n measurement by electrophoresis (mass/volume)Ordered By: Chivo Keller on 02-22-2024 Beta globulin Elph [Mass/Vol] 0.9 g/dL 0.7-1.3 [facility] Serum or plasma gamma globul in measurement by electrophoresis (mass/volume)Ordered By: Chivo Keller on 02-22-2024 Gamma globulin Elph [Mass/Vol] 1.0 g/dL 0.4-1.8 [facility] Sodium [Moles/volume] in Ser um or PlasmaOrdered By: Chivo Keller on 02-22-2024 Sodium [Moles/Vol] 140 mmol/L Normal 136-145 [facility] Comment on above: Performed By: #### V [id number], TONY, CMP, FE and TIBC, CBC #### [facility] [address] [place] [address] [place] #### SPE, KAPPA, LEXI SERUM #### [facility] , Transferrin [Mass/volume] in Serum or PlasmaOrdered By: Chivo Keller on 02-22-2024 Transferrin [Mass/Vol] 201 mg/dL Low 203-362 [facility] Comment on above: Performed By: #### V [id number], TONY, CMP, FE and TIBC, CBC #### [address] #### SPE, KAPPA, LEXI SERUM #### [facility] , Urea nitrogen [Mass/volume] in Serum or PlasmaOrdered By: Chivo Keller on 02-22-2024 Urea nitrogen [Mass/Vol] 59 mg/dL High 7-25 [facility] Comment on above: Performed By: #### V [id number], TONY, CMP, FE and TIBC, CBC #### [address] #### SPE, KAPPA, LEXI SERUM #### [facility] , Vit. B12/Folate Profileon Folate 36.0 ng/mL Normal >5.9 [facility] Comment on above: Result Comment: Echo te reference range: >5.9 ng/ml The WHO technical consultation on folate and vitamin b12 deficiencies has determined that folate concentrations less than 4 ng/ml are considered deficient. PERFORMED BY: [place] [address] PATHOLOGIST ENTERTAINMENT DIRECTOR TRU UMANZOR M.D. Performed By: #### V [id number], TONY, CMP, FE and TIBC, CBC #### [place] [address] [place] #### SPE, KAPPA, LEXI SERUM #### [facility] , Vitamin B12 ser/plasOrdered By: Chivo Keller on 02-22-2024 Cobalamin (Vitamin B12) [Mass/Vol] 649 pg/mL Normal 180-914 [facility] Comment on above: Performed By: #### V [id number], TONY, CMP, FE and TIBC, CBC #### [place] [address] [place] #### SPE, KAPPA, LEXI SERUM #### [facility] , Automated urine specific gra vity by refractometryon 02-01-2024 Specific gravity Refractometry automated (U) [Rel density] 1.010 1.005-1.025 [facility] Bilirubin Auto test strip (U ) [Mass/Vol]on 02-01-2024 Bilirubin (U) [Mass/Vol] Negative NEGATIVE [facility] Color Auto (U)on 02-01-2024 Color (U) LT. YELLOW YELLOW [facility] Erythrocyte distribution wid th Auto (RBC) [Ratio]on 02-01-2024 Erythrocyte distribution width (RBC) [Ratio] 13.5 % 11.0-15.0 [facility] Estimated glomerular filtrat ion rate (GFR) non- Americanon 02-01-2024 GFR/1.73 sq M.predicted among non-blacks MDRD (S/P/Bld) [Vol rate/Area] 23 mL/min/{1.73_m2} Low >=60 [facility] Glucose [Mass/volume] in Uri ne by Test stripon 02-01-2024 Glucose Test strip (U) [Mass/Vol] Negative NEGATIVE [facility] Hematocrit Auto (Bld) [Volum e fraction]on 02-01-2024 Hematocrit (Bld) [Volume fraction] 37.0 % Low 42.0-54.0 [facility] Hemoglobin [Mass/volume] in Bloodon 02-01-2024 Hemoglobin (Bld) [Mass/Vol] 11.9 g/dL Low 14.0-18.0 [facility] Ketones Auto test strip (U) [Mass/Vol]on 02-01-2024 Ketones (U) [Mass/Vol] Negative NEGATIVE [facility] - Chemistry and C hemistry - challengeon 02-01-2024 Calcium [Mass/Vol] 9.1 mg/dL 8.5-10.1 [facility] Chloride [Moles/Vol] 101 mmol/L 98-107 [facility] CO2 [Moles/Vol] 31.5 mmol/L 21.0-32.0 [facility] Creatinine [Mass/Vol] 2.66 mg/dL High 0.70-1.30 [facility] Free T4 [Mass/Vol] 1.03 ng/dL 0.76-1.46 [facility] GFR/1.73 sq M.predicted MDRD (S/P/Bld) [Vol rate/Area] 28 mL/min/{1.73_m2} Low >=60 [facility] Glucose [Mass/Vol] 128 mg/dL High 74-106 [facility] Magnesium [Mass/Vol] 2.4 mg/dL 1.8-2.4 [facility] Potassium [Moles/Vol] 3.8 mmol/L 3.5-5.1 [facility] Sodium [Moles/Vol] 141 mmol/L 136-145 [facility] TSH Qn 8.924 m[IU]/L High 0.358-3.740 [facility] Urea nitrogen [Mass/Vol] 55.0 mg/dL High 7.0-18.0 [facility] Urea nitrogen/Creatinine [Mass ratio] 20.7 mg/mg [facility] Laboratory - Urinalysison Protein (U) [Mass/Vol] 25.1 mg/dL High <=11.9 [facility] Leukocytes [#/volume] correc bonnie for nucleated erythrocytes in Blood by Automated counon 02-01-2024 WBC corrected for nucl RBC Auto (Bld) [#/Vol] 8.0 10 3/uL 4.0-11.0 [facility] MCH Auto (RBC) [Entitic mass ]on 02-01-2024 MCH (RBC) [Entitic mass] 30.9 pg 25.9-34.0 [facility] MCHC Auto (RBC) [Mass/Vol]on 02-01-2024 MCHC (RBC) [Mass/Vol] 32.2 g/dL 29.9-35.2 [facility] MCV Auto (RBC) [Entitic vol] on 02-01-2024 MCV (RBC) [Entitic vol] 96.1 fL High 80.0-94.0 F [facility] No Panel Informationon 01-31 25-Hydroxy Vitamin D Total 94.2 ng/mL [facility] Comment on above: <20 ng/mL Vit D defi cient20-<30 ng/mL Vit D sjjcpuntpkvb99-318 ng/mL Vit D sufficient>100 ng/mL Potential Toxicity Parathyroid Hormone (Intact) 52 pg/mL 15-65 [facility] Comment on above: Performed at: [facility] [employer] [address] [id number] Director: Nathan Munoz PhD, Phone: [phone] Phosphorus Level 4.1 mg/dL 2.6-4.7 [facility] Prostate Specific Antigen Screen 0.91 ng/mL <=4.00 [facility] Total Triiodothyronine 73 ng/dL 71-180 [facility] Comment on above: Performed at: [employer] [address] [id number] Director: Nathan Munoz PhD, Phone: [phone] Urine Random Creatinine 77.24 mg/dL 20.00-300.0 0 [facility] Platelet mean volume Auto (B ld) [Entitic vol]on 02-01-2024 Platelet mean volume (Bld) [Entitic vol] 9.5 fL 9.5-13.5 [facility] Platelets Auto (Bld) [#/Vol] on 02-01-2024 Platelets (Bld) [#/Vol] 199 10 3/uL 150-450 [facility] Protein Auto test strip (U) [Mass/Vol]on 02-01-2024 Protein (U) [Mass/Vol] TRACE mg/dL NEG/TRACE F [facility] RBC Auto (Bld) [#/Vol]on RBC (Bld) [#/Vol] 3.85 10 6/uL Low 4.70-6.10 [facility] Serum or plasma anion gap de terminationon 02-01-2024 Anion gap [Moles/Vol] 12.3 mmol/L [facility] Specific gravity Auto test s trip (U) [Rel density]on 02-01-2024 Specific gravity (U) [Rel density] CLEAR CLEAR [facility] Urine hemoglobin detection b y automated test stripon 02-01-2024 Hemoglobin Auto test strip Ql (U) Negative NEGATIVE [facility] Urine nitrite detection by a utomated test stripon 02-01-2024 Nitrite Auto test strip Ql (U) SMALL Abnormal NEGATIVE [facility] Nitrite Auto test strip Ql (U) Negative NEGATIVE [facility] Urine protein/creatinine rat ioon 02-01-2024 Protein/Creatinine (U) [Ratio] 0.32 [facility] Urobilinogen Auto test strip (U) [Mass/Vol]on 02-01-2024 Urobilinogen Qn (U) 0.2 {Jagruti'U}/dL 0.2-1.0 [facility] pH Auto test strip (U)on pH (U) 6.0 [pH] 5.0-9.0 [facility] Cholesterol in LDL Calc [Mas s/Vol]on 12-19-2023 Cholesterol in LDL [Mass/Vol] 81.8 mg/dL [facility] Comment on above: <100 mg/dl [id number] 0-129 mg/dl NEAR OR ABOVE [id number] mg/dl BORDERLINE [id number] mg/dl HIGH>190 mg/dl VERY HIGH Cholesterol in VLDL Calc [Ma ss/Vol]on 12-19-2023 Cholesterol in VLDL [Mass/Vol] 23.2 mg/dL [facility] Glucose mean value [Mass/vol ume] in Blood Estimated from glycated hemoglobinon 12-19-2023 Average glucose Estimated from glycated hemoglobin (Bld) [Mass/Vol] 137 mg/dL [facility] Laboratory - Chemistry and C hemistry - challengeon 12-19-2023 Cholesterol [Mass/Vol] 148 mg/dL <=200 [facility] Cholesterol in HDL [Mass/Vol] 43 mg/dL 40-60 [facility] Comment on above: > or =60 mg/dl - LOW CARDIOVASCULAR RISK<40 mg/dl - HIGH CARDIOVASCULAR RISK Free T4 [Mass/Vol] 1.04 ng/dL 0.76-1.46 [facility] Triglyceride [Mass/Vol] 116 mg/dL <=150 F [facility] TSH Qn 11.812 m[IU]/L 0.358-3.740 [facility] Laboratory - Hematology and Cell countson 12-19-2023 HbA1c (Bld) [Mass fraction] 6.4 % 4.5-6.2 [facility] Comment on above: ADA RECOMMENDED LIMI T 4.0 - 6.0ADA THERAPEUTIC TARGET < 7.0ACTION SUGGESTED> 7.0 Serum or plasma total choles terol/high density lipoprotein (HDL) cholesterol mass ernesto 12-19-2023 Cholesterol.total/Lissette sterol in HDL [Mass ratio] 3.4 {ratio} [facility] Comment on above: 3.3 - 4.4 LOW RISK4. 4 - 7.1 AVERAGE RISK7.1 - 11.0 MODERATE RISK>11.0 HIGH RISK Alanine aminotransferase [En zymatic activity/volume] in Serum or PlasmaOrdered By: Leigha Talamantesrenée on 08-30-2023 ALT [Catalytic activity/Vol] 20 U/L Normal 7-52 [facility] Comment on above: Performed By: #### C EA, CBC, FE and TIBC, CMP, TONY ####[place] [id number] [address] Albumin [Mass/volume] in Ser um or Plasma by Bromocresol green (BCG) dye binding methoOrdered By: Leigha Talamantesrenée on 08-30-2023 Albumin BCG dye [Mass/Vol] 4.4 g/dL 3.5-5.7 [facility] Alkaline phosphatase [Enzyma tic activity/volume] in Serum or PlasmaOrdered By: Leigha Omar on 08-30-2023 ALP [Catalytic activity/Vol] 114 U/L High 34-104 [facility] Comment on above: Performed By: #### C EA, CBC, FE and TIBC, CMP, TONY ####[facility] [id number] [place] [id number] [facility] Aspartate aminotransferase [ Enzymatic activity/volume] in Serum or PlasmaOrdered By: Leigha Omar on 08-30-2023 AST [Catalytic activity/Vol] 23 U/L Normal 13-39 [facility] Comment on above: Performed By: #### C EA, CBC, FE and TIBC, CMP, TONY ####[facility] [id number] [place] [id number] [place] Automated basophil %Ordered By: Leigha Nelson on 08-30-2023 Basophils/100 WBC (Bld) 0.5 % Normal . [facility] Comment on above: Performed By: #### C EA, CBC, FE and TIBC, CMP, TONY ####[address] Automated basophil countOrde red By: Leigha Nelson on 08-30-2023 Basophils (Bld) [#/Vol] 0.0 10*3/uL Normal 0.0-0.2 [facility] Comment on above: Result Comment: PERF ORMED BY: [facility] [address] [place] [address] PATHOLOGIST ENTERTAINMENT DIRECTOR TRU UMANZOR M.D. Performed By: #### C EA, CBC, FE and TIBC, CMP, TONY ####[address] Automated blood monocyte cou ntOrdered By: Leigha Talamantesrenée on 08-30-2023 Monocytes (Bld) [#/Vol] 0.5 10*3/uL Normal 0.0-0.8 [facility] Comment on above: Performed By: #### C EA, CBC, FE and TIBC, CMP, TONY ####[address] Automated eosinophil %Ordere d By: Leigha Bangurajimena on 08-30-2023 Eosinophils/100 WBC (Bld) 3.8 % Normal . [facility] Comment on above: Performed By: #### C EA, CBC, FE and TIBC, CMP, TONY ####[address] Automated eosinophil countOr dered By: Leigha Bangurajimena on 08-30-2023 Eosinophils (Bld) [#/Vol] 0.3 10*3/uL Normal 0.0-0.45 [facility] Comment on above: Performed By: #### C EA, CBC, FE and TIBC, CMP, TONY ####[address] Automated monocyte %Ordered By: Leigha Omar on 08-30-2023 Monocytes/100 WBC (Bld) 7.9 % Normal . [facility] Comment on above: Performed By: #### C EA, CBC, FE and TIBC, CMP, TONY ####[facility] Automated neutrophil %Ordere d By: Leigha Talamantesrenée on 08-30-2023 Neutrophils/100 WBC (Bld) 65.9 % Normal . [facility] Comment on above: Performed By: #### C EA, CBC, FE and TIBC, CMP, TONY ####[place] [id number] [address] Bilirubin.total [Mass/volume ] in Serum or PlasmaOrdered By: Leigha Bangurajimena on 08-30-2023 Bilirubin [Mass/Vol] 0.8 mg/dL Normal 0.3-1.0 [facility] Comment on above: Performed By: #### C EA, CBC, FE and TIBC, CMP, TONY ####[address] abdomen pelvis wo conon 1 10-30-2022 CT abdomen pelvis wo con [facility] [place] [address] CT Scan Report Signed Patient: Nas Ren MR#: [id number] 24 : 1940 Acct:[id number] Age/Sex: 83 / M ADM Date: 08/30/23 Loc: Room: Type: [facility] Attending Dr: Chivo Keller II DO Copies to: EDWARD Luke II, DO Ordering Provider: Leigha Nelson APRN Date of Service: 08/30/23 CT/CT chest wo con: surveillance ([id number]) CT/CT abdomen pelvis wo con: surveillance CT [...] Scott Jr., D.O.08/30/2023 1:10 PM Dictation Location: [place] [address] Transcribed By: [facility] 08/30/23 1310 Dictated By: Sotero Scott Jr DO 08/30/23 1304 Signed By: 08/30/23 1310 Normal [facility] Calcium [Mass/volume] in Ser um or PlasmaOrdered By: Leigha Nelson on 08-30-2023 Calcium [Mass/Vol] 9.7 mg/dL Normal 8.6-10.3 [facility] Comment on above: Performed By: #### C EA, CBC, FE and TIBC, CMP, TONY ####[address] Carbon dioxide, total [Moles /volume] in Serum or PlasmaOrdered By: Leigha Nelson on 08-30-2023 CO2 [Moles/Vol] 35.5 mmol/L High 21.0-31.0 [facility] Comment on above: Performed By: #### C EA, CBC, FE and TIBC, CMP, TONY ####[address] Chloride [Moles/volume] in S alayna or PlasmaOrdered By: Leigha Talamantesrenée on 08-30-2023 Chloride [Moles/Vol] 102 mmol/L Normal 98-107 [facility] Comment on above: Performed By: #### C EA, CBC, FE and TIBC, CMP, TONY ####[address] Complete Blood Count Auto Di ffon 08-30-2023 Mean Corpuscular HGB Conc 33.3 g/dL Normal 32.5-35.6 [facility] Comment on above: Performed By: #### C EA, CBC, FE and TIBC, CMP, TONY ####[address] NRBC% 0.1 /100{WBC} Normal 0-0.5 [facility] Comment on above: Performed By: #### C EA, CBC, FE and TIBC, CMP, TONY ####[address] Comprehensive Metabolic Pane vijay 08-30-2023 Albumin [Mass/Vol] 4.4 g/dL Normal 3.5-5.7 [facility] Comment on above: Performed By: #### C EA, CBC, FE and TIBC, CMP, TONY ####[address] Creatinine Clr Calc Pharmacy 30.81 Normal [facility] Comment on above: Performed By: #### C EA, CBC, FE and TIBC, CMP, TONY ####[place] [id number] [facility] GFR/1.73 sq M.predicted MDRD (S/P/Bld) [Vol rate/Area] 27.976 mL/min/{1.73_m2} Normal [facility] Comment on above: Performed By: #### C EA, CBC, FE and TIBC, CMP, TONY ####[address] Creatinine [Mass/volume] in Serum or PlasmaOrdered By: Leigha Omar on 08-30-2023 Creatinine [Mass/Vol] 2.29 mg/dL High 0.70-1.30 [facility] Comment on above: Performed By: #### C EA, CBC, FE and TIBC, CMP, TONY ####[address] Erythrocyte distribution wid th [Ratio] by Automated countOrdered By: Leigha Talamantesrenée on 08-30-2023 Erythrocyte distribution width (RBC) [Ratio] 14.8 % Normal 12.0-14.8 [facility] Comment on above: Performed By: #### C EA, CBC, FE and TIBC, CMP, TONY ####[address] Erythrocytes [#/volume] in B lood by Automated countOrdered By: Leigha Talamantesrenée on 08-30-2023 RBC (Bld) [#/Vol] 3.96 10*6/uL Normal 3.90-5.60 [facility] Comment on above: Performed By: #### C EA, CBC, FE and TIBC, CMP, TONY ####[address] Ferritin [Mass/volume] in Se rum or PlasmaOrdered By: Leigha Talamantesrenée on 08-30-2023 Ferritin [Mass/Vol] 239.3 ng/mL Normal 23.9-336.2 [facility] Comment on above: Result Comment: PERF ORMED BY: [facility] [address] [place] [id number] PATHOLOGIST ENTERTAINMENT DIRECTOR TRU UMANZOR M.D. Performed By: #### C EA, CBC, FE and TIBC, CMP, TONY ####[address] Glucose [Mass/volume] in Ser um or PlasmaOrdered By: Leigha Nelson on 08-30-2023 Glucose [Mass/Vol] 111 mg/dL High 70-100 [facility] Comment on above: ADA recommended refe rence rangeRandom Glucose Reference Range is dependent on time and content of last meal. Glucose of more than 200 mg/dL in a nonstressed, ambulatory subject supports the diagnosis of Diabetes Mellitus. Result Comment: [place] om Glucose Reference Range is dependent on time and content of last meal. Glucose of more than 200 mg/dL in a nonstressed, ambulatory subject supports the diagnosis of Diabetes Mellitus. ADA recommended reference range Performed By: #### C EA, CBC, FE and TIBC, CMP, TONY ####[address] Hematocrit [Volume Fraction] of Blood by Automated countOrdered By: Leigha Nelson on 08-30-2023 Hematocrit (Bld) [Volume fraction] 36.8 % Low 38.8-50.0 [facility] Comment on above: Performed By: #### C EA, CBC, FE and TIBC, CMP, TONY ####[place] [id number] [facility] Hemoglobin [Mass/volume] in BloodOrdered By: Leigha Talamantesrenée on 08-30-2023 Hemoglobin (Bld) [Mass/Vol] 12.3 g/dL Low 13.0-17.0 [facility] Comment on above: Performed By: #### C EA, CBC, FE and TIBC, CMP, TONY ####[address] Iron [Mass/volume] in Serum or PlasmaOrdered By: Leigha Nelson on 08-30-2023 Iron [Mass/Vol] 84 ug/dL Normal 50-212 [facility] Comment on above: Performed By: #### C EA, CBC, FE and TIBC, CMP, TONY ####[facility] [id number] [place] [address] [facility] Iron and TIBC Profileon 08-16 % Iron Saturation 29.0 % Normal 20-50 [facility] Comment on above: Performed By: #### C EA, CBC, FE and TIBC, CMP, TONY ####[facility] [place] [address] [facility] Total Iron Binding Capacity 290 ug/dL Normal 255-450 [facility] Comment on above: Performed By: #### C EA, CBC, FE and TIBC, CMP, TONY ####[place] [id number] [place] [address] [facility] Iron binding capacity [Mass/ volume] in Serum or PlasmaOrdered By: Leigha Nelson on 08-30-2023 Iron binding capacity [Mass/Vol] 290 ug/dL 255-450 [facility] Iron saturation [Mass Fracti on] in Serum or PlasmaOrdered By: Leigha Nelson on 08-30-2023 Iron saturation [Mass fraction] 29.0 % 20-50 [facility] Leukocytes [#/volume] correc bonnie for nucleated erythrocytes in Blood by Automated counOrdered By: Leigha Nelson on 08-30-2023 WBC corrected for nucl RBC Auto (Bld) [#/Vol] 7.0 10*3/uL 4.1-10.5 [facility] Leukocytes [#/volume] in Blo od by Automated countOrdered By: Leigha Nelson on 08-30-2023 WBC (Bld) [#/Vol] 7.0 10*3/uL Normal 4.1-10.5 [facility] Comment on above: Performed By: #### C EA, CBC, FE and TIBC, CMP, TONY ####[place] [id number] [place] [id number] [facility] Lymphocytes [#/volume] in Bl ood by Automated countOrdered By: Leigha Nelson on 08-30-2023 Lymphocytes (Bld) [#/Vol] 1.5 10*3/uL Normal 1.00-4.8 [facility] Comment on above: Performed By: #### C EA, CBC, FE and TIBC, CMP, TONY ####[address] Lymphocytes/100 leukocytes i n Blood by Automated countOrdered By: Leigha Talamantesrenée on 08-30-2023 Lymphocytes/100 WBC (Bld) 21.9 % Normal . [facility] Comment on above: Performed By: #### C EA, CBC, FE and TIBC, CMP, TONY ####[address] MCH [Entitic mass] by Automa bonnie countOrdered By: Leigha Talamantesrenée on 08-30-2023 MCH (RBC) [Entitic mass] 30.9 pg Normal 27.5-35.2 [facility] Comment on above: Performed By: #### C EA, CBC, FE and TIBC, CMP, TONY ####[address] MCHC Auto (RBC) [Mass/Vol]Or dered By: Leigha Talamantesrenée on 08-30-2023 MCHC (RBC) [Mass/Vol] 33.3 g/dL 32.5-35.6 [facility] MCV [Entitic volume] by Auto mated countOrdered By: Leigha Talamantesrenée on 08-30-2023 MCV (RBC) [Entitic vol] 92.8 fL Normal 83.5-101 F [facility] Comment on above: Performed By: #### C EA, CBC, FE and TIBC, CMP, TONY ####[address] Neutrophils [#/volume] in Bl ood by Automated countOrdered By: Leigha Talamantesrenée on 08-30-2023 Neutrophils (Bld) [#/Vol] 4.6 10*3/uL Normal 1.8-7.7 [facility] Comment on above: Performed By: #### C EA, CBC, FE and TIBC, CMP, TONY ####[address] No Panel InformationOrdered By: Leigha Omar on 08-30-2023 Estimated GFR (CKD-EPI) 27.976 mL/Min [facility] Pharmacy Creatinine Clearance (Chem 30.81 [facility] Nucleated erythrocytes [Pres ence] in Blood by Automated countOrdered By: Leigha Talamantesrenée on 08-30-2023 Nucleated RBC Auto Ql (Bld) 0.1 /100{WBC} 0-0.5 [facility] Platelet mean volume [Entiti c volume] in Blood by Automated countOrdered By: Leigha Talamantesernée on 08-30-2023 Platelet mean volume (Bld) [Entitic vol] 7.6 fL Normal 6.6-10.1 [facility] Comment on above: Performed By: #### C EA, CBC, FE and TIBC, CMP, TONY ####[address] Platelets [#/volume] in Bloo d by Automated countOrdered By: Leigha Omar on 08-30-2023 Platelets (Bld) [#/Vol] 206 10*3/uL Normal 150-450 [facility] Comment on above: Performed By: #### C EA, CBC, FE and TIBC, CMP, TONY ####[address] Potassium [Moles/volume] in Serum or PlasmaOrdered By: Leigha Talamantesrenée on 08-30-2023 Potassium [Moles/Vol] 4.5 mmol/L Normal 3.5-5.1 [facility] Comment on above: Performed By: #### C EA, CBC, FE and TIBC, CMP, TONY ####[place] [id number] [facility] Protein [Mass/volume] in Ser um or PlasmaOrdered By: Leigha Omar on 08-30-2023 Protein [Mass/Vol] 6.9 g/dL Normal 6.4-8.9 [facility] Comment on above: Performed By: #### C EA, CBC, FE and TIBC, CMP, TONY ####[place] [id number] [facility] Serum globulin measurement b y calculation (mass/volume)Ordered By: Leigha Nelson on 08-30-2023 Globulin (S) [Mass/Vol] 2.5 g/dL Normal [facility] Comment on above: Performed By: #### C EA, CBC, FE and TIBC, CMP, TONY ####[place] [id number] [address] Serum or plasma albumin/glob ulin mass ratioOrdered By: Leigha Nelson on 08-30-2023 Albumin/Globulin [Mass ratio] 1.8 {ratio} Normal [facility] Comment on above: Performed By: #### C EA, CBC, FE and TIBC, CMP, TONY ####[address] Serum or plasma anion gap de terminationOrdered By: Leigha Nelson on 08-30-2023 Anion gap [Moles/Vol] 10.0 mmol/L Normal 6.0-15.0 [facility] Comment on above: Performed By: #### C EA, CBC, FE and TIBC, CMP, TONY ####[address] Serum or plasma carcinoembry onic antigen measurement (mass/volume)Ordered By: Leigha Nelson on 08-30-2023 Carcinoembryonic Ag [Mass/Vol] 2.1 ng/mL 0.0-3.0 [facility] Sodium [Moles/volume] in Ser um or PlasmaOrdered By: Leigha Nelson on 08-30-2023 Sodium [Moles/Vol] 143 mmol/L Normal 136-145 [facility] Comment on above: Performed By: #### C EA, CBC, FE and TIBC, CMP, TONY ####[address] Transferrin [Mass/volume] in Serum or PlasmaOrdered By: Leigha Nelson on 08-30-2023 Transferrin [Mass/Vol] 207 mg/dL Normal 203-362 [facility] Comment on above: Performed By: #### C EA, CBC, FE and TIBC, CMP, TONY ####[facility] [place] [address] [facility] Urea nitrogen [Mass/volume] in Serum or PlasmaOrdered By: Leigha Nelson on 08-30-2023 Urea nitrogen [Mass/Vol] 51 mg/dL High 05-09 [facility] Comment on above: Performed By: #### C EA, CBC, FE and TIBC, CMP, TONY ####[facility] [id number] [place] [address] [facility] ECHOCARDIO M/2D COMPLETEon 0 02-28-2023 ECHOCARDIO M/2D COMPLETE Patient: NAS REN Exam Date: 02/28/2023 : 1940 Gender:M Ordering : MRS. MADDI SONG MIESHA Admission #: [id number] Family : DR ARNIE LINDA D.Rosario Order #: [id number] CLICK HERE TO VIEW EXAM ECHOCARDIOGRAM REPORT [...] Ortiz M.D. on 02/28/2023 at 20:26 Normal [facility] T3, TOTAL (TRIIODOTHYRONINE) on 02-16-2023 T3, TOTAL 83 ng/dL Normal 71-180 [facility] Comment on above: Performed By: #### F T4, PSASC #### [facility] [address] [place] [address] [address] Benito Schwartz FREE T4on 02-15-2023 Free T4 [Mass/Vol] 1.03 ng/dL Normal 0.76-1.46 [facility] Comment on above: Performed By: #### F T4 #### [facility] [address] [place] [address] [address] Benito Schwartz LIPID PROFILEon 02-15-2023 CHOL-HDL RATIO NORM SEE BELOW Normal [facility] Comment on above: Result Comment: 3.3 - 4.4 LOW RISK 4.4 - 7.1 AVERAGE RISK 7.1 - 11.0 MODERATE RISK >11.0 HIGH RISK Performed By: #### T SH, FT3, BMP #### [facility] [address] [place] [address] [address] Benito Schwartz Cholesterol [Mass/Vol] 164 mg/dL Normal <=200 [facility] Comment on above: Performed By: #### T SH, FT3, BMP #### [facility] [address] [place] [address] [address] Benito Schwartz Cholesterol in HDL [Mass/Vol] 41 mg/dL Normal 40-60 [facility] Comment on above: Performed By: #### T SH, FT3, BMP #### [facility] [address] [place] [address] [address] Benito Schwartz Cholesterol in LDL [Mass/Vol] 104.2 mg/dL Normal [facility] Comment on above: Performed By: #### T SH, FT3, BMP #### [facility] [address] [place] [address] [address] Benito Schwartz Cholesterol.total/Lissette sterol in HDL [Mass ratio] 4.0 {ratio} Normal [facility] Comment on above: Performed By: #### T SH, FT3, BMP #### [facility] [address] [place] [address] [address] Benito Schwartz HDL NORMAL > or = 60 mg/dl - LOW CARDIOVASCULAR RISK <40 mg/dl - HIGH CARDIOVASCULAR RISK Normal [facility] Comment on above: Performed By: #### T SH, FT3, BMP #### [facility] [address] [place] [address] [address] Benito Schwartz LDL CALC NORMAL SEE BELOW Normal [facility] Comment on above: Result Comment: <100 mg/dl OPTIMAL 100 - 129 mg/dl NEAR OR ABOVE OPTIMAL 130 - 159 mg/dl BORDERLINE HIGH 160 - 189 mg/dl HIGH >190 mg/dl VERY HIGH Performed By: #### T SH, FT3, BMP #### [facility] [address] [place] [address] Dr. Benito Schwartz Triglyceride [Mass/Vol] 94 mg/dL Normal <=150 [facility] Comment on above: Performed By: #### T SH, FT3, BMP #### [facility] [address] [place] [address] Dr. Benito Schwartz VLDL CALC 18.8 mg/dL Normal [facility] Comment on above: Performed By: #### T SH, FT3, BMP #### [facility] [address] [place] [address] Dr. Benito Schwartz TSHon 02-15-2023 TSH 22.732 uIU/mL Critically high 0.358-3.740 [facility] Comment on above: Performed By: #### F T4, PSASC #### [facility] [address] [place] [address] Dr. Benito Schwartz PTH INTACTon 01-03-2023 PTH, Intact 46 pg/mL Normal 15-65 [facility] Comment on above: Performed By: #### U RTPCR #### [facility] [address] [place] [address] Dr. Benito Schwartz T3, TOTAL (TRIIODOTHYRONINE) on 01-03-2023 T3, TOTAL 77 ng/dL Normal 71-180 [facility] Comment on above: Performed By: #### T SH, FT3, BMP #### [facility] [address] [place] [address] Dr. Benito Schwartz CBC AUTO DIFFon 01-02-2023 BASO # 0.0 103/ul Normal 0.0-0.1 [facility] Comment on above: Performed By: #### C BC #### [facility] [address] [place] [address] Dr. Benito Schwartz Basophils/100 WBC (Bld) 0.4 % Normal 0.2-2.0 [facility] Comment on above: Performed By: #### C BC #### [facility] [address] [place] [address] Dr. Benito Schwartz EO # 0.4 103/ul Normal 0.0-0.7 [facility] Comment on above: Performed By: #### C BC #### [facility] [address] [place] [address] Dr. Benito Schwartz Eosinophils/100 WBC (Bld) 5.1 % Normal 0.9-7.0 [facility] Comment on above: Performed By: #### C BC #### [facility] [address] [place] [address] Dr. Benito Schwartz Erythrocyte distribution width (RBC) [Ratio] 13.2 % Normal 11.0-15.0 [facility] Comment on above: Performed By: #### C BC #### [facility] [address] [place] [address] Dr. Benito Schwartz Hematocrit (Bld) [Volume fraction] 37.4 % Critically low 42.0-54.0 [facility] Comment on above: Performed By: #### C BC #### [facility] [address] [place] [address] Dr. Benito Schwartz Hemoglobin (Bld) [Mass/Vol] 12.4 g/dL Critically low 14.0-18.0 [facility] Comment on above: Performed By: #### C BC #### [facility] [address] [place] [address] Dr. Benito Schwartz IG # 0.03 10e3/ul Normal 0.00-0.03 [facility] Comment on above: Performed By: #### C BC #### [facility] [address] [place] [address] Dr. Benito Schwartz IG % 0.4 % Normal 0.0-0.5 [facility] Comment on above: Performed By: #### C BC #### [facility] [address] [place] [address] Dr. Benito Schwartz LYMPH # 1.6 103/ul Normal 1.2-3.8 [facility] Comment on above: Performed By: #### C BC #### [facility] [address] [place] [address] Dr. Benito Schwartz Lymphocytes/100 WBC (Bld) 20.3 % Critically low 20.5-60.0 [facility] Comment on above: Performed By: #### C BC #### [facility] [address] [place] [address] Dr. Benito Schwartz MANUAL DIFF REQ NO Normal [facility] Comment on above: Performed By: #### C BC #### [facility] [address] [place] [address] Dr. Benito Schwartz MCH (RBC) [Entitic mass] 31.7 pg Normal 25.9-34.0 [facility] Comment on above: Performed By: #### C BC #### [facility] [address] [place] [address] Dr. Benito Schwartz MCHC (RBC) [Mass/Vol] 33.2 g/dL Normal 29.9-35.2 [facility] Comment on above: Performed By: #### C BC #### [facility] [address] [place] [address] Dr. Benito Schwartz MCV (RBC) [Entitic vol] 95.7 fL Critically high 80.0-94 .0 [facility] Comment on above: Performed By: #### C BC #### [facility] [address] [place] [address] Dr. Benito Schwartz MONO # 0.7 103/ul Normal 0.3-0.8 [facility] Comment on above: Performed By: #### C BC #### [facility] [id number] Benito Schwartz Monocytes/100 WBC (Bld) 8.6 % Normal 1.7-12.0 [facility] Comment on above: Performed By: #### C BC #### [facility] [address] [address] [address] Benito Schwartz NEUT # 5.3 103/ul Normal 1.4-6.5 [facility] Comment on above: Performed By: #### C BC #### [facility] [address] [place] [address] Dr. Benito Schwartz Neutrophils/100 WBC (Bld) 65.2 % Normal 43.0-75.0 [facility] Comment on above: Performed By: #### C BC #### [facility] [address] [place] [address] Dr. Benito Schwartz Platelet mean volume (Bld) [Entitic vol] 9.0 fL Critically low 9.5-13.5 [facility] Comment on above: Performed By: #### C BC #### [facility] [address] [place] [address] Dr. Benito Schwartz PLT 209 103/ul Normal 150-450 [facility] Comment on above: Performed By: #### C BC #### [facility] [address] [place] [address] Dr. Benito Schwartz RBC 3.91 106/ul Critically low 4.70-6.10 [facility] Comment on above: Performed By: #### C BC #### [facility] [address] [place] [address] Dr. Benito Schwartz WBC 8.1 103/ul Normal 4.0-11.0 [facility] Comment on above: Performed By: #### C BC #### [facility] [address] [place], [place] [id number] Dr. Benito Schwartz FREE T4on 01-02-2023 Free T4 [Mass/Vol] 0.87 ng/dL Normal 0.76-1.46 [facility] Comment on above: Performed By: #### F T4, PSASC #### [facility] [address] [place] [address] Dr. Benito Schwartz GLYCOHEMOGLOBIN A1Con 2022 ADA RECOMMENDATION SEE BELOW Normal [facility] Comment on above: Result Comment: ADA RECOMMENDED LIMIT 4.0 - 6.0 ADA THERAPEUTIC TARGET < 7.0 ACTION SUGGESTED > 7.0 Performed By: #### C BC #### [facility] [address] [place] [address] Dr. Benito Schwartz Glucose [Mass/Vol] 126 mg/dL Normal [facility] Comment on above: Performed By: #### C BC #### [facility] [address] [place] [address] Dr. Benito Schwartz HbA1c (Bld) [Mass fraction] 6.0 % Normal 4.5-6.2 [facility] Comment on above: Performed By: #### C BC #### [facility] [address] [place] [address] Dr. Benito Schwartz MAGNESIUMon 01-02-2023 Magnesium [Mass/Vol] 2.3 mg/dL Normal 1.8-2.4 [facility] Comment on above: Performed By: #### U RTPCR #### [facility] [address] [place] [address] Dr. Benito Schwartz PHOSPHORUSon 01-02-2023 Phosphate [Mass/Vol] 4.1 mg/dL Normal 2.6-4.7 [facility] Comment on above: Performed By: #### U RTPCR #### [facility] [address] [place] [address] Dr. Benito Schwartz PROF CHEM 8 (BAS METB)on Anion gap [Moles/Vol] 11.1 mmol/L Normal [facility] Comment on above: Performed By: #### U RTPCR #### [facility] [address] [place] [address] Dr. Benito Schwartz Calcium [Mass/Vol] 8.9 mg/dL Normal 8.5-10.1 [facility] Comment on above: Performed By: #### U RTPCR #### [facility] [address] [place] [address] Dr. Benito Schwartz Chloride [Moles/Vol] 100 mmol/L Normal 98-107 [facility] Comment on above: Performed By: #### U RTPCR #### [facility] [address] [address] [address] Benito Schwartz CO2 [Moles/Vol] 33.2 mmol/L Critically high 21.0-32.0 [facility] Comment on above: Performed By: #### U RTPCR #### [facility] [address] [address] [address] Benito Schwartz Creatinine [Mass/Vol] 2.31 mg/dL Critically high 0.70-1.30 [facility] Comment on above: Performed By: #### U RTPCR #### [facility] [address] [place] [address] Dr. Benito Schwartz EGFR-AF SAO TOMEAN 33 mL/min/1.73m2 Critically low >=60 [facility] Comment on above: Performed By: #### U RTPCR #### [facility] [address] [place] [address] Dr. Benito Schwartz EGFR-NON AF SAO TOMEAN 27 mL/min/1.73m2 Critically low >=60 [facility] Comment on above: Performed By: #### U RTPCR #### [facility] [address] [place] [address] Dr. Benito Schwartz Glucose [Mass/Vol] 112 mg/dL Critically high 74-106 [facility] Comment on above: Performed By: #### U RTPCR #### [facility] [address] [place] [address] Dr. Benito Schwartz Potassium [Moles/Vol] 4.3 mmol/L Normal 3.5-5.1 [facility] Comment on above: Performed By: #### U RTPCR #### [facility] [address] [address] [address] Benito Schwartz Sodium [Moles/Vol] 140 mmol/L Normal 136-145 [facility] Comment on above: Performed By: #### U RTPCR #### [facility] [address] [place] [address] Dr. Benito Schwartz Urea nitrogen [Mass/Vol] 51.0 mg/dL Critically high 7.0-18.0 [facility] Comment on above: Performed By: #### U RTPCR #### [facility] [address] [place] [address] Dr. Benito Schwartz Urea nitrogen/Creatinine [Mass ratio] 22.1 mg/mg Normal [facility] Comment on above: Performed By: #### U RTPCR #### [facility] [address] [place] [address] Dr. Benito Schwartz TSHon 01-02-2023 TSH 27.692 uIU/mL Critically high 0.358-3.740 [facility] Comment on above: Performed By: #### C BC #### [facility] [address] [place] [address] Dr. Benito Schwartz UA RANDOMon 01-02-2023 Bilirubin Ql (U) Negative Normal NEGATIVE [facility] Comment on above: Performed By: #### U RTPCR #### [facility] [address] [place] [address] Dr. Benito Schwartz Clarity (U) CLEAR Normal CLEAR [facility] Comment on above: Performed By: #### U RTPCR #### [facility] [address] [place] [address] Dr. Benito Schwartz Color (U) LT. YELLOW Normal YELLOW [facility] Comment on above: Performed By: #### U RTPCR #### [facility] [address] [place] [address] Dr. Benito Schwartz Glucose Ql (U) Negative Normal NEGATIVE [facility] Comment on above: Performed By: #### U RTPCR #### [facility] [address] [place] [address] Dr. Benito Schwartz Hemoglobin Ql (U) Negative Normal NEGATIVE [facility] Comment on above: Performed By: #### U RTPCR #### [facility] [address] [place] [address] Dr. Benito Schwartz Ketones Ql (U) Negative Normal NEGATIVE [facility] Comment on above: Performed By: #### U RTPCR #### [facility] [address] [place] [address] Dr. Benito Schwartz LEUKOCYTES Negative Normal NEGATIVE [facility] Comment on above: Performed By: #### U RTPCR #### [facility] [address] [place] [address] Dr. Benito Schwartz Nitrite Ql (U) Negative Normal NEGATIVE [facility] Comment on above: Performed By: #### U RTPCR #### [facility] [address] [place] [address] Dr. Benito Schwartz pH (U) 6.0 [pH] Normal 5-9 [facility] Comment on above: Performed By: #### U RTPCR #### [facility] [address] [place] [address] Dr. Benito Schwartz SPEC GRAVITY <=1.005 Abnormal 1.005-<=1.02 5 [facility] Comment on above: Performed By: #### U RTPCR #### [facility] [address] [place] [address] Dr. Benito Schwartz UA PROTEIN Negative Normal NEGATIVE/ TRACE [facility] Comment on above: Performed By: #### U RTPCR #### [facility] [address] [place] [address] Dr. Benito Schwartz Urobilinogen Qn (U) 0.2 {Jagruti'U}/dL Normal 0.2 - 1. 0 [facility] Comment on above: Performed By: #### U RTPCR #### [facility] [address] [place] [address] Dr. Benito Schwartz URINE T PROTEIN CREAT RATIOo n 01-02-2023 Protein (U) [Mass/Vol] 19.1 mg/dL Critically high <=12.0 [facility] Comment on above: Performed By: #### F T4, PSASC #### [facility] [address] [place] [address] Dr. Benito Schwartz UR PROT CREAT RAT 0.75 Normal [facility] Comment on above: Performed By: #### F T4, PSASC #### [facility] [address] [place] [address] Dr. Benito Schwartz URINE CREAT 25.63 mg/dL Normal 20.00-300.00 [facility] Comment on above: Performed By: #### F T4, PSASC #### [facility] [address] [place] [address] Dr. Benito Schwartz VITAMIN D 25 OHon 01-02-2023 VIT D 25-OH 86.8 ng/mL Normal [facility] Comment on above: Performed By: #### U RTPCR #### [facility] [address] [place] [address] Dr. Benito Schwartz VIT D RANGES SEE BELOW Normal [facility] Comment on above: Result Comment: <20 ng/mL Vit D deficient 20 - <30 ng/mL Vit D insufficient 30 - 100 ng/mL Vit D sufficient >100 ng/mL Potential Toxicity Performed By: #### U RTPCR #### [facility] [address] [place] [address] Dr. Benito Schwartz T3, TOTAL (TRIIODOTHYRONINE) on 11-17-2022 T3, TOTAL 82 ng/dL Normal 71-180 [facility] Comment on above: Performed By: #### V ITAD #### [facility] [address] [place] [address] Dr. Benito Schwartz FREE T4on 11-16-2022 Free T4 [Mass/Vol] 0.93 ng/dL Normal 0.76-1.46 [facility] Comment on above: Performed By: #### C BC #### [facility] [address] [place] [address] Dr. Benito Schwartz TSHon 11-16-2022 TSH 31.189 uIU/mL Critically high 0.358-3.740 [facility] Comment on above: Performed By: #### F T4, PSASC #### [facility] [address] [place] [address] Dr. Benito Schwartz T3, TOTAL (TRIIODOTHYRONINE) on 10-04-2022 T3, TOTAL 43 ng/dL Critically low 71-180 [facility] Comment on above: Performed By: #### F T4, PSASC #### [facility] [address] [place] [address] Dr. Benito Schwartz FREE T4on 10-03-2022 Free T4 [Mass/Vol] 0.35 ng/dL Critically low 0.76-1.[address] [facility] Comment on above: Performed By: #### F T4, PSASC #### [facility] [address] [place] [address] Dr. Benito Schwartz TSHon 10-03-2022 TSH 121.174 uIU/mL Critically high 0.358-3.740 [facility] Comment on above: Performed By: #### F T4, PSASC #### [facility] [address] [place] [address] Dr. Benito Schwartz MAGNESIUMon 09-22-2022 Magnesium [Mass/Vol] 2.5 mg/dL Critically high 1.8-2.4 [facility] Comment on above: Performed By: #### F T4 #### [facility] [address] [place] [address] Dr. Benito Schwartz PROF CHEM 8 (BAS METB)on Anion gap [Moles/Vol] 7.3 mmol/L Normal [facility] Comment on above: Performed By: #### F T4 #### [facility] [address] [place] [address] Dr. Benito Schwartz Calcium [Mass/Vol] 8.8 mg/dL Normal 8.5-10.1 [facility] Comment on above: Performed By: #### F T4 #### [facility] [address] [place] [address] Dr. Benito Schwartz Chloride [Moles/Vol] 100 mmol/L Normal 98-107 [facility] Comment on above: Performed By: #### F T4 #### [facility] [address] [place] [address] Dr. Benito Schwartz CO2 [Moles/Vol] 33.7 mmol/L Critically high 21.0-32.0 [facility] Comment on above: Performed By: #### F T4 #### [facility] [address] [place] [address] Dr. Benito Schwartz Creatinine [Mass/Vol] 2.43 mg/dL Critically high 0.70-1.30 [facility] Comment on above: Performed By: #### F T4 #### [facility] [address] [address] [address] Benito Schwartz EGFR-AF SAO TOMEAN 31 mL/min/1.73m2 Critically low >=60 [facility] Comment on above: Performed By: #### F T4 #### [facility] [address] [address] [address] Benito Schwartz EGFR-NON AF SAO TOMEAN 26 mL/min/1.73m2 Critically low >=60 [facility] Comment on above: Performed By: #### F T4 #### [facility] [address] [place] [address] Dr. Benito Schwartz Glucose [Mass/Vol] 136 mg/dL Critically high 74-106 [facility] Comment on above: Performed By: #### F T4 #### [facility] [address] [place] [address] Dr. Benito Schwartz Potassium [Moles/Vol] 4.0 mmol/L Normal 3.5-5.1 [facility] Comment on above: Performed By: #### F T4 #### [facility] [address] [place] [address] Dr. Benito Schwartz Sodium [Moles/Vol] 137 mmol/L Normal 136-145 [facility] Comment on above: Performed By: #### F T4 #### [facility] [address] [place] [address] Dr. Benito Schwartz Urea nitrogen [Mass/Vol] 47.0 mg/dL Critically high 7.0-18.0 [facility] Comment on above: Performed By: #### F T4 #### [facility] [address] [place] [address] Dr. Benito Schwartz Urea nitrogen/Creatinine [Mass ratio] 19.3 mg/mg Normal [facility] Comment on above: Performed By: #### F T4 #### [facility] [address] [place] [address] Dr. Benito Schwartz PTH INTACTon 09-10-2022 PTH, Intact 36 pg/mL Normal 15-65 [facility] Comment on above: Performed By: #### F T4, PSASC #### [facility] [address] [place] [address] Dr. Benito Schwartz CBC AUTO DIFFon 09-09-2022 BASO # 0.0 103/ul Normal 0.0-0.1 [facility] Comment on above: Performed By: #### F T4, PSASC #### [facility] [address] [place] [address] Dr. Benito Schwartz Basophils/100 WBC (Bld) 0.5 % Normal 0.2-2.0 [facility] Comment on above: Performed By: #### F T4, PSASC #### [facility] [address] [place] [address] Dr. Benito Schwartz EO # 0.4 103/ul Normal 0.0-0.7 [facility] Comment on above: Performed By: #### F T4, PSASC #### [facility] [address] [place] [address] Dr. Benito Schwartz Eosinophils/100 WBC (Bld) 5.3 % Normal 0.9-7.0 [facility] Comment on above: Performed By: #### F T4, PSASC #### [facility] [address] [place] [address] Dr. Benito Schwartz Erythrocyte distribution width (RBC) [Ratio] 14.3 % Normal 11.0-15.0 [facility] Comment on above: Performed By: #### F T4, PSASC #### [facility] [address] [place] [address] Dr. Benito Schwartz Hematocrit (Bld) [Volume fraction] 36.9 % Critically low 42.0-54.0 [facility] Comment on above: Performed By: #### F T4, PSASC #### [facility] [address] [place] [address] Dr. Benito Schwartz Hemoglobin (Bld) [Mass/Vol] 12.4 g/dL Critically low 14.0-18.0 [facility] Comment on above: Performed By: #### F T4, PSASC #### [facility] [address] [address] [address] Benito Schwartz IG # 0.04 10e3/ul Critically high 0.00-0.03 [facility] Comment on above: Performed By: #### F T4, PSASC #### [facility] [address] [address] [address] Benito Schwartz IG % 0.5 % Normal 0.0-0.5 [facility] Comment on above: Performed By: #### F T4, PSASC #### [facility] [address] [address] [address] Benito Schwartz LYMPH # 1.6 103/ul Normal 1.2-3.8 [facility] Comment on above: Performed By: #### F T4, PSASC #### [facility] [address] [address] [address] Benito Schwartz Lymphocytes/100 WBC (Bld) 22.2 % Normal 20.5-60.0 [facility] Comment on above: Performed By: #### F T4, PSASC #### [facility] [address] [address] [address] Benito Schwartz MANUAL DIFF REQ NO Normal [facility] Comment on above: Performed By: #### F T4, PSASC #### [facility] [address] [address] [address] Benito Schwartz MCH (RBC) [Entitic mass] 31.2 pg Normal 25.9-34.0 [facility] Comment on above: Performed By: #### F T4, PSASC #### [facility] [address] [address] [address] Benito Schwartz MCHC (RBC) [Mass/Vol] 33.6 g/dL Normal 29.9-35.2 [facility] Comment on above: Performed By: #### F T4, PSASC #### [facility] [address] [address] [address] Benito Schwartz MCV (RBC) [Entitic vol] 92.7 fL Normal 80.0-94.0 [facility] Comment on above: Performed By: #### F T4, PSASC #### [facility] [address] [address] [address] Benito Schwartz MONO # 0.5 103/ul Normal 0.3-0.8 [facility] Comment on above: Performed By: #### F T4, PSASC #### [facility] [address] [place] [address] Dr. Benito Schwartz Monocytes/100 WBC (Bld) 6.4 % Normal 1.7-12.0 [facility] Comment on above: Performed By: #### F T4, PSASC #### [facility] [address] [place] [address] Dr. Benito Schwartz NEUT # 4.8 103/ul Normal 1.4-6.5 [facility] Comment on above: Performed By: #### F T4, PSASC #### [facility] [address] [place] [address] Dr. Benito Schwartz Neutrophils/100 WBC (Bld) 65.1 % Normal 43.0-75.0 [facility] Comment on above: Performed By: #### F T4, PSASC #### [facility] [address] [place] [address] Dr. Benito Schwartz Platelet mean volume (Bld) [Entitic vol] 8.7 fL Critically low 9.5-13.5 [facility] Comment on above: Performed By: #### F T4, PSASC #### [facility] [address] [place] [address] Dr. Benito Schwartz PLT 206 103/ul Normal 150-450 [facility] Comment on above: Performed By: #### F T4, PSASC #### [facility] [address] [place] [address] Dr. Benito Schwartz RBC 3.98 106/ul Critically low 4.70-6.10 [facility] Comment on above: Performed By: #### F T4, PSASC #### [facility] [address] [place] [address] Dr. Benito Schwartz WBC 7.4 103/ul Normal 4.0-11.0 [facility] Comment on above: Performed By: #### F T4, PSASC #### [facility] [address] [place] [address] Dr. Benito Schwartz MAGNESIUMon 09-09-2022 Magnesium [Mass/Vol] 2.1 mg/dL Normal 1.8-2.4 [facility] Comment on above: Performed By: #### B 12FOL, FETIBC #### [facility] [address] [place] [address] Dr. Benito Schwartz PHOSPHORUSon 09-09-2022 Phosphate [Mass/Vol] 3.2 mg/dL Normal 2.6-4.7 [facility] Comment on above: Performed By: #### B 12FOL, FETIBC #### [facility] [address] [place] [address] Dr. Benito Schwartz PROF CHEM 8 (BAS METB)on Anion gap [Moles/Vol] 10.1 mmol/L Normal [facility] Comment on above: Performed By: #### B 12FOL, FETIBC #### [facility] [address] [place] [address] Dr. Benito Schwartz Calcium [Mass/Vol] 9.3 mg/dL Normal 8.5-10.1 [facility] Comment on above: Performed By: #### B 12FOL, FETIBC #### [facility] [address] [place] [address] Dr. Benito Schwartz Chloride [Moles/Vol] 99 mmol/L Normal 98-107 [facility] Comment on above: Performed By: #### B 12FOL, FETIBC #### [facility] [address] [place] [address] Dr. Benito Schwartz CO2 [Moles/Vol] 32.4 mmol/L Critically high 21.0-32.0 [facility] Comment on above: Performed By: #### B 12FOL, FETIBC #### [facility] [address] [place] [address] Dr. Benito Schwartz Creatinine [Mass/Vol] 2.77 mg/dL Critically high 0.70-1.30 [facility] Comment on above: Performed By: #### B 12FOL, FETIBC #### [facility] [address] [place] [address] Dr. Benito Schwartz EGFR-AF SAO TOMEAN 27 mL/min/1.73m2 Critically low >=60 [facility] Comment on above: Performed By: #### B 12FOL, FETIBC #### [facility] [address] [place] [address] Dr. Benito Schwartz EGFR-NON AF SAO TOMEAN 22 mL/min/1.73m2 Critically low >=60 [facility] Comment on above: Performed By: #### B 12FOL, FETIBC #### [facility] [address] [place] [address] Dr. Benito Schwartz Glucose [Mass/Vol] 166 mg/dL Critically high 74-106 T [facility] Comment on above: Performed By: #### B 12FOL, FETIBC #### [facility] [address] [place] [address] Dr. Benito Schwartz Potassium [Moles/Vol] 3.5 mmol/L Normal 3.5-5.1 [facility] Comment on above: Performed By: #### Adria 12FOL, FETIBC #### [facility] [address] [place] [address] Dr. Benito Schwartz Sodium [Moles/Vol] 138 mmol/L Normal 136-145 [facility] Comment on above: Performed By: #### B 12FOL, FETIBC #### [facility] [address] [place] [address] Dr. Benito Schwartz Urea nitrogen [Mass/Vol] 50.0 mg/dL Critically high 7.0-18.0 [facility] Comment on above: Performed By: #### B 12FOL, FETIBC #### [facility] [address] [place] [address] Dr. Benito Schwartz Urea nitrogen/Creatinine [Mass ratio] 18.1 mg/mg Normal [facility] Comment on above: Performed By: #### B 12FOL, FETIBC #### [facility] [address] [place] [address] Dr. Benito Schwartz UA RANDOMon 09-09-2022 Bilirubin Ql (U) Negative Normal NEGATIVE [facility] Comment on above: Performed By: #### V ITAD #### [facility] [address] [place] [address] Dr. Benito Schwartz Clarity (U) CLEAR Normal CLEAR [facility] Comment on above: Performed By: #### V ITAD #### [facility] [address] [place] [address] Dr. Benito Schwartz Color (U) LT. YELLOW Normal YELLOW [facility] Comment on above: Performed By: #### V ITAD #### [facility] [address] [place] [address] Dr. Benito Schwartz Glucose Ql (U) Negative Normal NEGATIVE [facility] Comment on above: Performed By: #### V ITAD #### [facility] [address] [place] [address] Dr. Benito Schwartz Hemoglobin Ql (U) Negative Normal NEGATIVE [facility] Comment on above: Performed By: #### V ITAD #### [facility] [address] [place] [address] Dr. Benito Schwartz Ketones Ql (U) Negative Normal NEGATIVE [facility] Comment on above: Performed By: #### V ITAD #### [facility] [address] [place] [address] Dr. Benito Schwartz LEUKOCYTES Negative Normal NEGATIVE [facility] Comment on above: Performed By: #### V ITAD #### [facility] [address] [place] [address] Dr. Benito Schwartz Nitrite Ql (U) Negative Normal NEGATIVE [facility] Comment on above: Performed By: #### V ITAD #### [facility] [address] [place] [address] Dr. Benito Schwartz pH (U) 5.5 [pH] Normal 5-9 [facility] Comment on above: Performed By: #### V ITAD #### [facility] [address] [place] [address] Dr. Benito Schwartz SPEC GRAVITY 1.010 Normal 1.005-<=1.02 5 [facility] Comment on above: Performed By: #### V ITAD #### [facility] [address] [place] [address] Dr. Benito Schwartz UA PROTEIN Negative Normal NEGATIVE/ TRACE [facility] Comment on above: Performed By: #### V ITAD #### [facility] [address] [address] [address] Benito Schwartz Urobilinogen Qn (U) 0.2 {Jagruti'U}/dL Normal 0.2 - 1. 0 [facility] Comment on above: Performed By: #### V ITAD #### [facility] [address] [place] [address] Dr. Benito Schwartz URINE T PROTEIN CREAT RATIOo n 09-09-2022 Protein (U) [Mass/Vol] 16.4 mg/dL Critically high <=12.0 [facility] Comment on above: Performed By: #### T KRISTOPHER, FT3, BMP #### [facility] [address] [place] [address] Dr. Benito Schwartz UR PROT CREAT RAT 0.[address] [facility] Comment on above: Performed By: #### T SH, FT3, BMP #### [facility] [address] [place] [address] Dr. Benito Schwartz URINE CREAT 20.88 mg/dL Normal 20.00-300.00 [facility] Comment on above: Performed By: #### T SH, FT3, BMP #### [facility] [address] [place] [address] Dr. Benito Schwartz VITAMIN D 25 OHon 09-09-2022 VIT D 25-OH 83.7 ng/mL Normal [facility] Comment on above: Performed By: #### V ITAD #### [facility] [address] [place] [address] Dr. Benito Schwartz VIT D RANGES SEE BELOW Normal [facility] Comment on above: Result Comment: <20 ng/mL Vit D deficient 20 - <30 ng/mL Vit D insufficient 30 - 100 ng/mL Vit D sufficient >100 ng/mL Potential Toxicity Performed By: #### V ITAD #### [facility] [address] [place] [address] Dr. Benito Schwartz Albumin [Mass/volume] in Ser um or PlasmaOrdered By: Leigha Nelson on 08-31-2022 Albumin [Mass/Vol] 3.9 g/dL 3.2-5.5 [facility] Basophils Auto (Bld) [#/Vol] Ordered By: Leigha Nelson on 08-31-2022 Basophils (Bld) [#/Vol] 0.0 10*3/uL 0.0-0.2 [facility] Basophils/100 WBC Auto (Bld) Ordered By: Leigha Nelson on 08-31-2022 Basophils/100 WBC (Bld) 0.5 % . [facility] Creatinine and Glomerular fi ltration rate.predicted panel (S/P/Bld)Ordered By: Leigha Nelson on 08-31-2022 Creatinine [Mass/Vol] 2.63 mg/dL 0.64-1.27 [facility] Eosinophils Auto (Bld) [#/Vo l]Ordered By: Leigha Nelson on 08-31-2022 Eosinophils (Bld) [#/Vol] 0.3 10*3/uL 0.0-0.45 [facility] Eosinophils/100 WBC Auto (Bl d)Ordered By: Leigha Nelson on 08-31-2022 Eosinophils/100 WBC (Bld) 4.3 % . [facility] Erythrocyte distribution wid th Auto (RBC) [Ratio]Ordered By: Leigha Nelson on 08-31-2022 Erythrocyte distribution width (RBC) [Ratio] 15.7 % 12.0-14.8 [facility] Estimated glomerular filtrat ion rate (GFR) non- AmericanOrdered By: Leigha Nelson on 08-31-2022 GFR/1.73 sq M.predicted among non-blacks MDRD (S/P/Bld) [Vol rate/Area] 24 mL/Min [facility] Globulin Calc (S) [Mass/Vol] Ordered By: Leigha Nelson on 08-31-2022 Globulin (S) [Mass/Vol] 2.8 g/dL [facility] Hematocrit Auto (Bld) [Volum e fraction]Ordered By: Leigha Nelson on 08-31-2022 Hematocrit (Bld) [Volume fraction] 37.2 % 38.8-50.0 [facility] Hemoglobin [Mass/volume] in BloodOrdered By: Leigha Nelson on 08-31-2022 Hemoglobin (Bld) [Mass/Vol] 12.4 g/dL 13.0-17.0 [facility] Laboratory - Hematology and Cell countsOrdered By: Leigha Nelson on 08-31-2022 Nucleated RBC/100 WBC (Bld) [Ratio] 0.1 % 0-0.5 [facility] Leukocytes [#/volume] in Blo od by Automated countOrdered By: Leigha Nelson on 08-31-2022 WBC (Bld) [#/Vol] 6.7 10*3/uL 4.5-11.0 [facility] Lymphocytes Auto (Bld) [#/Vo l]Ordered By: Leigha Nelson on 08-31-2022 Lymphocytes (Bld) [#/Vol] 1.2 10*3/uL 1.00-4.8 [facility] Lymphocytes/100 WBC Auto (Bl d)Ordered By: Leigha Nelson on 08-31-2022 Lymphocytes/100 WBC (Bld) 18.5 % . [facility] MCH Auto (RBC) [Entitic mass ]Ordered By: Leigha Nelson on 08-31-2022 MCH (RBC) [Entitic mass] 31.0 pg 27.5-35.2 [facility] MCHC Auto (RBC) [Mass/Vol]Or dered By: Leigha Nelson on 08-31-2022 MCHC (RBC) [Mass/Vol] 33.4 g/dL 32.5-35.6 [facility] MCV Auto (RBC) [Entitic vol] Ordered By: Leigha Nelson on 08-31-2022 MCV (RBC) [Entitic vol] 92.9 fL 83.5-101 [facility] Monocytes Auto (Bld) [#/Vol] Ordered By: Leigha Nelson on 08-31-2022 Monocytes (Bld) [#/Vol] 0.6 10*3/uL 0.0-0.8 [facility] Monocytes/100 WBC Auto (Bld) Ordered By: Leigha Nelson on 08-31-2022 Monocytes/100 WBC (Bld) 8.4 % . [facility] Neutrophils Auto (Bld) [#/Vo l]Ordered By: Leigha Nelson on 08-31-2022 Neutrophils (Bld) [#/Vol] 4.6 10*3/uL 1.8-7.7 [facility] Neutrophils/100 WBC Auto (Bl d)Ordered By: Leigha Nelson on 08-31-2022 Neutrophils/100 WBC (Bld) 68.3 % . [facility] No Panel InformationOrdered By: Leigha Nelson on 08-31-2022 Estimated GFR () 29 mL/Min [facility] Comment on above: GFR estimated refere nce range: According to KDOQI guidelines, <60 ml/min/1.73m2 is sufficient to diagnose a patient with chronic kidney disease. Pharmacy Creatinine Clearance (Chem 26.08 [facility] Platelet mean volume Auto (B ld) [Entitic vol]Ordered By: Leigha Nelson on 08-31-2022 Platelet mean volume (Bld) [Entitic vol] 6.8 fL 6.6-10.1 [facility] Platelets Auto (Bld) [#/Vol] Ordered By: Leigha Nelson on 08-31-2022 Platelets (Bld) [#/Vol] 238 10*3/uL 150-450 [facility] Protein [Mass/volume] in Ser um or PlasmaOrdered By: Leigha Nelson on 08-31-2022 Protein [Mass/Vol] 6.7 g/dL 6.1-7.9 [facility] RBC Auto (Bld) [#/Vol]Ordere d By: Leigha Nelson on 08-31-2022 RBC (Bld) [#/Vol] 4.00 10*6/uL 3.90-5.60 [facility] Serum or plasma alanine paige otransferase measurement without P-5'-P (enzymatic activiOrdered By: Leigha Nelson on 08-31-2022 ALT No additional P-5'-P [Catalytic activity/Vol] 26 U/L 10-60 [facility] Serum or plasma albumin/glob ulin mass ratioOrdered By: Leigha Nelson on 08-31-2022 Albumin/Globulin [Mass ratio] 1.4 {ratio} [facility] Serum or plasma alkaline mega sphatase measurement (enzymatic activity/volume)Ordered By: Leigha Nelson on 08-31-2022 ALP [Catalytic activity/Vol] 112 U/L 32-92 [facility] Serum or plasma anion gap de terminationOrdered By: Leigha Nelson on 08-31-2022 Anion gap [Moles/Vol] 9.4 mmol/L 6.0-15.0 [facility] Serum or plasma aspartate am inotransferase measurement (enzymatic activity/volume)Ordered By: Leigha Nelson on 08-31-2022 AST [Catalytic activity/Vol] 32 U/L 10-42 [facility] Serum or plasma calcium darshan urement (mass/volume)Ordered By: Leigha Nelson on 08-31-2022 Calcium [Mass/Vol] 8.9 mg/dL 8.2-10.2 [facility] Serum or plasma carcinoembry onic antigen measurement (mass/volume)Ordered By: Leigha Nelson on 08-31-2022 Carcinoembryonic Ag [Mass/Vol] 2.5 ng/mL 0.0-3.0 [facility] Serum or plasma chloride ernestine surement (moles/volume)Ordered By: Leigha Nelson on 08-31-2022 Chloride [Moles/Vol] 98 mmol/L 95-114 [facility] Serum or plasma glucose darshan urement (mass/volume)Ordered By: Leigha Nelson on 08-31-2022 Glucose [Mass/Vol] 104 mg/dL 70-100 [facility] Comment on above: ADA recommended refe rence rangeRandom Glucose Reference Range is dependent on time and content of last meal. Glucose of more than 200 mg/dL in a nonstressed, ambulatory subject supports the diagnosis of Diabetes Mellitus. Serum or plasma potassium me asurement (moles/volume)Ordered By: Leigha Nelson on 08-31-2022 Potassium [Moles/Vol] 3.4 mmol/L 3.5-5.1 [facility] Serum or plasma sodium measu rement (moles/volume)Ordered By: Leigha Nelson on 08-31-2022 Sodium [Moles/Vol] 135 mmol/L 136-146 [facility] Serum or plasma total biliru bin measurement (mass/volume)Ordered By: Leigha Bangurajimena on 08-31-2022 Bilirubin [Mass/Vol] 0.8 mg/dL 0.3-1.2 [facility] Serum or plasma total carbon dioxide measurement (moles/volume)Ordered By: Leigha Bangurajimena on 08-31-2022 CO2 [Moles/Vol] 31.0 mmol/L 22.0-30.0 [facility] Serum or plasma urea nitroge n measurement (mass/volume)Ordered By: Leigha Talamantesrenée on 08-31-2022 Urea nitrogen [Mass/Vol] 40 mg/dL 9- [facility] T3, TOTAL (TRIIODOTHYRONINE) on 08-31-2022 T3, TOTAL 42 ng/dL Critically low 71-180 [facility] Comment on above: Performed By: #### F T4, PSASC #### [facility] [address] [address] [address] Benito Schwartz FREE T4on 08-30-2022 Free T4 [Mass/Vol] 0.11 ng/dL Critically low 0.76-1.[address] [facility] Comment on above: Performed By: #### V ITAD #### [facility] [address] [address] [address] Benito Schwartz TSHon 08-30-2022 TSH 121.477 uIU/mL Critically high 0.358-3.740 [facility] Comment on above: Performed By: #### F T4 #### [facility] [address] [place] [address] Dr. Benito Schwartz Glucose Glucometer (BldC) [M ass/Vol]Ordered By: Ramesh Rascon on 07-21-2022 Glucose [Mass/Vol] 105 mg/dL [facility] Comment on above: Random Glucose Refer ence Range is dependent on time and content of last meal. Glucose of more than 200 mg/dL in a nonstressed, ambulatory subject supports the diagnosis of Diabetes Mellitus. T3, TOTAL (TRIIODOTHYRONINE) on 07-21-2022 T3, TOTAL 56 ng/dL Critically low 71-180 [facility] Comment on above: Performed By: #### F T4, PSASC #### [facility] [address] [address] [address] Benito Schwartz FREE T4on 07-20-2022 Free T4 [Mass/Vol] 0.48 ng/dL Critically low 0.76-1.[address] [facility] Comment on above: Performed By: #### V ITAD #### [facility] [address] [place] [address] Dr. Benito Schwartz TSHon 07-20-2022 TSH 67.173 uIU/mL Critically high 0.358-3.740 [facility] Comment on above: Performed By: #### U RTPCR #### [facility] [address] [place] [address] Dr. Benito Schwartz COVID-19 SOFIAOrdered By: Lucia Rascon on 07-19-2022 SARS-CoV+SARS-CoV-2 (COVID-19) Ag IA.rapid Ql (Resp) Negative Negative [facility] Comment on above: This is a duplicate Lindsay SARS Antigen (MADHU) result to be used for statistical tracking purpose only. No Panel InformationOrdered By: Ramesh Rascon on 07-19-2022 SARS Antigen (LFIA) [facility] Albumin [Mass/volume] in Ser um or PlasmaOrdered By: Chivo Keller on 05-31-2022 Albumin [Mass/Vol] 3.9 g/dL 3.2-5.5 [facility] Basophils Auto (Bld) [#/Vol] Ordered By: Chivo Keller on 05-31-2022 Basophils (Bld) [#/Vol] 0.1 10*3/uL 0.0-0.2 [facility] Basophils/100 WBC Auto (Bld) Ordered By: Chivo Keller on 05-31-2022 Basophils/100 WBC (Bld) 0.8 % . [facility] Blood hemoglobin measurement (mass/volume)Ordered By: Chivo Keller on 05-31-2022 Hemoglobin (Bld) [Mass/Vol] 11.1 g/dL 13.0-17.0 [facility] Blood leukocytes automated c ount (number/volume)Ordered By: Chivo Keller on 05-31-2022 WBC (Bld) [#/Vol] 8.8 10*3/uL 4.5-11.0 [facility] CT biopsyOrdered By: Danuta Kelly on 05-31-2022 Transferrin [Mass/Vol] 210 mg/dL 180-380 [facility] Creatinine (Bld) [Mass/Vol]O rdered By: Nikunj Shultz on 05-31-2022 Creatinine [Mass/Vol] 2.4 mg/dL High 0.6-1.3 [facility] Comment on above: ER/ESD physician is [...] on 05-31-2022 Creatinine [Mass/Vol] 2.23 mg/dL 0.64-1.27 [facility] Eosinophils Auto (Bld) [#/Vo l]Ordered By: Chivo Keller on 05-31-2022 Eosinophils (Bld) [#/Vol] 0.4 10*3/uL 0.0-0.45 [facility] Eosinophils/100 WBC Auto (Bl d)Ordered By: Chivo Keller on 05-31-2022 Eosinophils/100 WBC (Bld) 4.1 % . [facility] Erythrocyte distribution wid th Auto (RBC) [Ratio]Ordered By: Chivo Keller on 05-31-2022 Erythrocyte distribution width (RBC) [Ratio] 16.4 % 12.0-14.8 [facility] Estimated glomerular filtrat ion rate (GFR) non- AmericanOrdered By: Chivo Keller on 05-31-2022 GFR/1.73 sq M.predicted among non-blacks MDRD (S/P/Bld) [Vol rate/Area] 28 mL/Min [facility] Ferritin [Mass/volume] in Se rum or PlasmaOrdered By: Danuta Kelly on 05-31-2022 Ferritin [Mass/Vol] 96.9 ng/mL 23.9-336.2 [facility] Folate [Mass/volume] in Seru m or PlasmaOrdered By: Danuta Kelly on 05-31-2022 Folate [Mass/Vol] 17.7 ng/mL >5.9 [facility] Comment on above: Folate reference ran ge: >5.9 ng/ml The WHO technical consultation on folate and vitamin b12 deficiencies has determined that folate concentrations less than 4 ng/ml are considered deficient. Folate reference ran ge: >5.9 ng/mlThe WHO technical consultation on folate and vitamin [id number] has determined that folate concentrations lessthan 4 ng/ml are considered deficient. Globulin Calc (S) [Mass/Vol] Ordered By: Chivo Keller on 05-31-2022 Globulin (S) [Mass/Vol] 3.4 g/dL [facility] Hematocrit Auto (Bld) [Volum e fraction]Ordered By: Chivo Keller on 05-31-2022 Hematocrit (Bld) [Volume fraction] 33.6 % 38.8-50.0 [facility] Iron [Mass/volume] in Serum or PlasmaOrdered By: Danuta Kelly on 05-31-2022 Iron [Mass/Vol] 42 ug/dL 40-160 [facility] Iron binding capacity [Mass/ volume] in Serum or PlasmaOrdered By: Danuta Kelly on 05-31-2022 Iron binding capacity [Mass/Vol] 294 ug/dL 255-450 [facility] Iron saturation [Mass Fracti on] in Serum or PlasmaOrdered By: Danuta Kelly on 05-31-2022 Iron saturation [Mass fraction] 14.0 % 20-50 [facility] Laboratory - Chemistry and C hemistry - challengeOrdered By: Danuta Kelly on 05-31-2022 Cobalamin (Vitamin B12) [Mass/Vol] 463 pg/mL 180-914 [facility] Laboratory - Hematology and Cell countsOrdered By: Chivo Keller on 05-31-2022 Nucleated RBC/100 WBC (Bld) [Ratio] 0.0 % 0-0.5 [facility] Lymphocytes Auto (Bld) [#/Vo l]Ordered By: Chivo Keller on 05-31-2022 Lymphocytes (Bld) [#/Vol] 1.5 10*3/uL 1.00-4.8 [facility] Lymphocytes/100 WBC Auto (Bl d)Ordered By: Chivo Keller on 05-31-2022 Lymphocytes/100 WBC (Bld) 17.2 % . [facility] MCH Auto (RBC) [Entitic mass ]Ordered By: Chivo Keller on 05-31-2022 MCH (RBC) [Entitic mass] 29.2 pg 27.5-35.2 [facility] MCHC Auto (RBC) [Mass/Vol]Or dered By: Chivo Keller on 05-31-2022 MCHC (RBC) [Mass/Vol] 33.1 g/dL 32.5-35.6 [facility] MCV Auto (RBC) [Entitic vol] Ordered By: Chivo Keller on 05-31-2022 MCV (RBC) [Entitic vol] 88.2 fL 83.5-101 [facility] Monocytes Auto (Bld) [#/Vol] Ordered By: Chivo Keller on 05-31-2022 Monocytes (Bld) [#/Vol] 0.7 10*3/uL 0.0-0.8 [facility] Monocytes/100 WBC Auto (Bld) Ordered By: Chivo Keller on 05-31-2022 Monocytes/100 WBC (Bld) 8.0 % . [facility] Neutrophils Auto (Bld) [#/Vo l]Ordered By: Chivo Keller on 05-31-2022 Neutrophils (Bld) [#/Vol] 6.2 10*3/uL 1.8-7.7 [facility] Neutrophils/100 WBC Auto (Bl d)Ordered By: Chivo Keller on 05-31-2022 Neutrophils/100 WBC (Bld) 69.9 % . [facility] No Panel InformationOrdered By: Nikunj Shultz on 05-31-2022 POC Estimated GFR 32 [facility] Comment on above: GFR estimated refere nce range: According to KDOQI guidelines, <60 ml/min/1.73m2 is sufficient to diagnose a patient with chronic kidney disease. POC Estimated GFR Non- Amer 26 [facility] No Panel InformationOrdered By: Chivo Keller on 05-31-2022 Estimated GFR () 34 mL/Min [facility] Comment on above: GFR estimated refere nce range: According to KDOQI guidelines, <60 ml/min/1.73m2 is sufficient to diagnose a patient with chronic kidney disease. Pharmacy Creatinine Clearance (Chem 31.14 [facility] Platelet mean volume Auto (B ld) [Entitic vol]Ordered By: Chivo Keller on 05-31-2022 Platelet mean volume (Bld) [Entitic vol] 7.0 fL 6.6-10.1 [facility] Platelets Auto (Bld) [#/Vol] Ordered By: Chivo Keller on 05-31-2022 Platelets (Bld) [#/Vol] 308 10*3/uL 150-450 [facility] Protein [Mass/volume] in Ser um or PlasmaOrdered By: Chivo Keller on 05-31-2022 Protein [Mass/Vol] 7.3 g/dL 6.1-7.9 [facility] RBC Auto (Bld) [#/Vol]Ordere d By: Chivo Keller on 05-31-2022 RBC (Bld) [#/Vol] 3.81 10*6/uL 3.90-5.60 [facility] Serum or plasma alanine paige otransferase measurement without P-5'-P (enzymatic activiOrdered By: Chivo Keller on 05-31-2022 ALT No additional P-5'-P [Catalytic activity/Vol] 17 U/L 10-60 [facility] Serum or plasma albumin/glob ulin mass ratioOrdered By: Chivo Keller on 05-31-2022 Albumin/Globulin [Mass ratio] 1.1 {ratio} [facility] Serum or plasma alkaline mega sphatase measurement (enzymatic activity/volume)Ordered By: Chivo Keller on 05-31-2022 ALP [Catalytic activity/Vol] 140 U/L 32-92 [facility] Serum or plasma aspartate am inotransferase measurement (enzymatic activity/volume)Ordered By: Chivo Keller on 05-31-2022 AST [Catalytic activity/Vol] 22 U/L 10-42 [facility] Serum or plasma calcium darshan urement (mass/volume)Ordered By: Chivo Keller on 05-31-2022 Calcium [Mass/Vol] 9.5 mg/dL 8.2-10.2 [facility] Serum or plasma carcinoembry onic antigen measurement (mass/volume)Ordered By: Chivo Keller on 05-31-2022 Carcinoembryonic Ag [Mass/Vol] 1.8 ng/mL 0.0-3.0 [facility] Serum or plasma chloride ernestine surement (moles/volume)Ordered By: Chivo Keller on 05-31-2022 Chloride [Moles/Vol] 101 mmol/L 95-114 [facility] Serum or plasma glucose darshan urement (mass/volume)Ordered By: Chivo Keller on 05-31-2022 Glucose [Mass/Vol] 108 mg/dL 70-100 [facility] Comment on above: ADA recommended refe [...] on 05-31-2022 Potassium [Moles/Vol] 4.4 mmol/L 3.5-5.1 [facility] Serum or plasma sodium measu rement (moles/volume)Ordered By: Chivo Keller on 05-31-2022 Sodium [Moles/Vol] 140 mmol/L 136-146 [facility] Serum or plasma total biliru bin measurement (mass/volume)Ordered By: Chivo Keller on 05-31-2022 Bilirubin [Mass/Vol] 0.5 mg/dL 0.3-1.2 [facility] Serum or plasma total carbon dioxide measurement (moles/volume)Ordered By: Chivo Keller on 05-31-2022 CO2 [Moles/Vol] 29.7 mmol/L 22.0-30.0 [facility] Serum or plasma urea nitroge n measurement (mass/volume)Ordered By: Chivo Keller on 05-31-2022 Urea nitrogen [Mass/Vol] 42 mg/dL 9- [facility] CBC W/DIFFon 05-26-2022 ABS IMM GRANS 0.1 10*3/uL Normal 0.0-0.2 [facility] Comment on above: Performed By: #### [id number] #### [facility] [address] [place] [address], [facility] ABS NEUTROPHILS 6.4 10*3/uL Normal 1.6-7.6 [facility] Comment on above: Performed By: #### [id number] #### [facility] [address] [facility] [place] [address], [facility] Basophils (Bld) [#/Vol] 0.0 10*3/uL Normal 0.0-0.2 [facility] Comment on above: Performed By: #### 5 [id number] #### [facility] [address] [facility] [place] [address], [facility] Basophils/100 WBC (Bld) 0.4 % Normal 0.0-1.0 T mela [facility] Comment on above: Performed By: #### 5 [id number] #### [facility] [address] [place] [address], [facility] [facility] Eosinophils (Bld) [#/Vol] 0.4 10*3/uL Normal 0.0-0.5 [facility] Comment on above: Performed By: #### 5 0103 #### [facility] [address] [facility] [place] [address], [facility] Eosinophils/100 WBC (Bld) 4.3 % Normal 0.0-6.0 [facility] Comment on above: Performed By: #### 5 0103 #### [facility] [address] [facility]. [address] Erythrocyte distribution width (RBC) [Ratio] 15.9 % High 11.5-15.0 [facility] Comment on above: Performed By: #### 5 0103 #### [facility] [address] [facility] [address] Hematocrit (Bld) [Volume fraction] 31.6 % Low 39.0-50.0 [facility] Comment on above: Performed By: #### 5 0103 #### [facility] [address] [facility]. [address] Hemoglobin (Bld) [Mass/Vol] 10.0 g/dL Low 13.0-17.0 [facility] Comment on above: Performed By: #### 5 0103 #### [facility] [address] [place] [address], [facility] IMMATURE GRANS 0.8 % Normal 0.0-1.0 [facility] Comment on above: Performed By: #### 5 0103 #### [facility] [address] [facility] [place] [address], [facility] Lymphocytes (Bld) [#/Vol] 1.6 10*3/uL Normal 1.2-4.0 [facility] Comment on above: Performed By: #### 5 3 #### [facility] [address] [place] [address], [facility] Lymphocytes/100 WBC (Bld) 16.8 % Low 20.0-45.0 [facility] Comment on above: Performed By: #### 5 0103 #### [facility] [address] [place] [address], [facility] MCH (RBC) [Entitic mass] 28.7 pg Normal 27.0-33.0 [facility] Comment on above: Performed By: #### 5 0103 #### [facility] [address] [place] [address], [facility] MCHC (RBC) [Mass/Vol] 31.6 g/dL Low 32.0-35.0 [facility] Comment on above: Performed By: #### 5 0103 #### [facility] [address] [place] [address], [facility] MCV (RBC) [Entitic vol] 90.5 fL Normal 82.0-98.0 T mela [facility] Comment on above: Performed By: #### 5 0103 #### [facility] [address] [place] [address], [facility] Monocytes (Bld) [#/Vol] 0.8 10*3/uL Normal 0.1-1.0 [facility] Comment on above: Performed By: #### 5 0103 #### [facility] [address] [place] [address], [facility] MONOS 9.0 % Normal 5.0-12.0 [facility] Comment on above: Performed By: #### 5 0103 #### [facility] [address] [place] [id number], [facility] Neutrophils/100 WBC (Bld) 68.7 % Normal 40.0-72.0 [facility] Comment on above: Performed By: #### 5 3 #### [facility] [address] [place] [id number], [facility] Nucleated RBC/100 WBC (Bld) [Ratio] 0 % Normal 0-0 [facility] Comment on above: Performed By: #### 5 0103 #### [facility] [address] [facility] [place] [address], [facility] PLAT CNT 292 10*3/uL Normal 150-400 [facility] Comment on above: Performed By: #### 5 0103 #### [facility] [address] [facility] [place] [address], [facility] RBC (Bld) [#/Vol] 3.49 10*6/uL Low 4.20-5.70 [facility] Comment on above: Performed By: #### 5 0103 #### [facility] [address] [facility] [place] [address], [facility] WBC (Bld) [#/Vol] 9.29 10*3/uL Normal 4.00-10.60 [facility] Comment on above: Performed By: #### 5 0103 #### [facility] [address] [facility] [place] [address], [facility] IMMUNOGLOBULIN Jovany 2 [place] Normal [facility] Comment on above: Result Comment: Test Performed by [facility] [address] [place] [address] - Released 05/27/2022 12:45 IMMUNOGLOBULIN E 308 IU/mL High <101 [facility] THYROID-STIMULATING IMMUNOGL OBULINon 05-14-2022 Thyroid Sim Immunoglobulin <0.10 Normal 0.00-0.55 [facility] Comment on above: Performed By: #### C BC #### [facility] [address] [place] [address] [address] Benito Schwartz THYROTROPIN RECEPTOR ABon Thyrotropin Receptor Ab, Serum <1.10 Normal 0.00-1.75 [facility] Comment on above: Performed By: #### C BC #### [facility] [address] [address] [address] Benito Schwartz PTH INTACTon 05-13-2022 PTH, Intact 18 pg/mL Normal 15-65 [facility] Comment on above: Performed By: #### C BC #### [facility] [address] [address] [address] Benito Schwartz T3, TOTAL (TRIIODOTHYRONINE) on 05-13-2022 T3, TOTAL 80 ng/dL Normal 71-180 [facility] Comment on above: Performed By: #### U RTPCR #### [facility] [address] [place] [address] [address] Benito Schwartz VIT D 25-OH LABCORPon 2021 Vitamin D, 25-Hydroxy 84.3 ng/mL Normal 30.0-100.0 [facility] Comment on above: Result Comment: Randi min D deficiency has been defined by the [place] of [employer] and an Endocrine Society practice guideline as a level of serum 25-OH vitamin D less than 20 ng/mL (1,2). The Endocrine Society went on to further define vitamin D insufficiency as a level between 21 and 29 ng/mL (2). 1. IOM ([place] of [employer]). 2010. Dietary reference intakes for calcium and D. [place]: The National Academies Press. 2. Annamarie MF, Milena [place], Sweta-Andrea BURGESS, et al. Evaluation, treatment, and prevention of vitamin D deficiency: an Endocrine Society clinical practice guideline. JCEM. 2010; 96(7):1911-30. Performed By: #### U RTPCR #### [facility] [address] [address] [address] Benito Schwartz CBC AUTO DIFFon 05-12-2022 BASO # 0.0 103/ul Normal 0.0-0.1 [facility] Comment on above: Performed By: #### C BC #### [facility] [address] [place] [address] [address] Benito Schwartz Basophils/100 WBC (Bld) 0.2 % Normal 0.2-2.0 [facility] Comment on above: Performed By: #### C BC #### [facility] [address] [place] [address] [address] Benito Schwartz EO # 0.4 103/ul Normal 0.0-0.7 [facility] Comment on above: Performed By: #### C BC #### [facility] [address] [place] [address] [address] Benito Schwartz Eosinophils/100 WBC (Bld) 4.4 % Normal 0.9-7.0 [facility] Comment on above: Performed By: #### C BC #### [facility] [address] [place] [address] [address] Benito Schwartz Erythrocyte distribution width (RBC) [Ratio] 15.0 % Normal 11.0-15.0 [facility] Comment on above: Performed By: #### C BC #### [facility] [address] [place] [address] [address] Benito Schwartz Hematocrit (Bld) [Volume fraction] 29.8 % Critically low 42.0-54.0 [facility] Comment on above: Performed By: #### C BC #### [facility] [address] [place] [address] Dr. Benito Schwartz Hemoglobin (Bld) [Mass/Vol] 9.7 g/dL Critically low 14.0-18.0 [facility] Comment on above: Performed By: #### C BC #### [facility] [address] [place] [address] Dr. Benito Schwartz IG # 0.06 10e3/ul Critically high 0.00-0.03 [facility] Comment on above: Performed By: #### C BC #### [facility] [address] [place] [address] Dr. Benito Schwartz IG % 0.7 % Critically high 0.0-0.5 [facility] Comment on above: Performed By: #### C BC #### [facility] [address] [place] [address] [address] Benito Schwartz LYMPH # 1.9 103/ul Normal 1.2-3.8 [facility] Comment on above: Performed By: #### C BC #### [facility] [address] [place] [address] Dr. Benito Schwartz Lymphocytes/100 WBC (Bld) 21.1 % Normal 20.5-60.0 [facility] Comment on above: Performed By: #### C BC #### [facility] [address] [place] [address] Dr. Benito Schwartz MANUAL DIFF REQ NO Normal [facility] Comment on above: Performed By: #### C BC #### [facility] [address] [place] [address] Dr. Benito Schwartz MCH (RBC) [Entitic mass] 29.0 pg Normal 25.9-34.0 [facility] Comment on above: Performed By: #### C BC #### [facility] [address] [place] [address] Dr. Benito Schwartz MCHC (RBC) [Mass/Vol] 32.6 g/dL Normal 29.9-35.2 [facility] Comment on above: Performed By: #### C BC #### [facility] [address] [place] [address] Dr. Benito Schwartz MCV (RBC) [Entitic vol] 89.0 fL Normal 80.0-94.0 [facility] Comment on above: Performed By: #### C BC #### [facility] [address] [place] [address] Dr. Benito Schwartz MONO # 0.9 103/ul Critically high 0.3-0.8 [facility] Comment on above: Performed By: #### C BC #### [facility] [address] [place] [address] Dr. Benito Schwartz Monocytes/100 WBC (Bld) 9.9 % Normal 1.7-12.0 [facility] Comment on above: Performed By: #### C BC #### [facility] [address] [place] [address] Dr. Benito Schwartz NEUT # 5.8 103/ul Normal 1.4-6.5 [facility] Comment on above: Performed By: #### C BC #### [facility] [address] [place] [address] Dr. Benito Schwartz Neutrophils/100 WBC (Bld) 63.7 % Normal 43.0-75.0 [facility] Comment on above: Performed By: #### C BC #### [facility] [address] [address] [address] Benito Schwartz Platelet mean volume (Bld) [Entitic vol] 8.7 fL Critically low 9.5-13.5 [facility] Comment on above: Performed By: #### C BC #### [facility] [address] [place] [address] Dr. Benito Schwartz PLT 253 103/ul Normal 150-450 [facility] Comment on above: Performed By: #### C BC #### [facility] [address] [place] [address] Dr. Benito Schwartz RBC 3.35 106/ul Critically low 4.70-6.10 [facility] Comment on above: Performed By: #### C BC #### [facility] [address] [place] [address] Dr. Benito Schwartz WBC 9.1 103/ul Normal 4.0-11.0 [facility] Comment on above: Performed By: #### C BC #### [facility] [address] [place] [address] Dr. Benito Schwartz FREE T4on 05-12-2022 Free T4 [Mass/Vol] 1.25 ng/dL Normal 0.76-1.46 [facility] Comment on above: Performed By: #### V ITAD #### [facility] [address] [place] [address] Dr. Benito Schwartz MAGNESIUMon 05-12-2022 Magnesium [Mass/Vol] 2.1 mg/dL Normal 1.8-2.4 [facility] Comment on above: Performed By: #### F T4 #### [facility] [address] [place] [address] Dr. Benito Schwartz PHOSPHORUSon 05-12-2022 Phosphate [Mass/Vol] 4.2 mg/dL Normal 2.6-4.7 [facility] Comment on above: Performed By: #### F T4 #### [facility] [address] [place] [address] Dr. Benito Schwartz PROF CHEM 8 (BAS METB)on Anion gap [Moles/Vol] 13.4 mmol/L Normal [facility] Comment on above: Performed By: #### F T4 #### [facility] [address] [place] [address] [address] Benito Schwartz Calcium [Mass/Vol] 9.1 mg/dL Normal 8.5-10.1 [facility] Comment on above: Performed By: #### F T4 #### [facility] [address] [place] [address] [address] Benito Schwartz Chloride [Moles/Vol] 103 mmol/L Normal 98-107 [facility] Comment on above: Performed By: #### F T4 #### [facility] [address] [place] [address] Dr. Benito Schwartz CO2 [Moles/Vol] 28.6 mmol/L Normal 21.0-32.0 [facility] Comment on above: Performed By: #### F T4 #### [facility] [address] [place] [address] [address] Benito Schwartz Creatinine [Mass/Vol] 2.30 mg/dL Critically high 0.70-1.30 [facility] Comment on above: Performed By: #### F T4 #### [facility] [address] [place] [address] Dr. Benito Schwartz EGFR-AF SAO TOMEAN 33 mL/min/1.73m2 Critically low >=60 [facility] Comment on above: Performed By: #### F T4 #### [facility] [address] [address] [address] Benito Schwartz EGFR-NON AF SAO TOMEAN 27 mL/min/1.73m2 Critically low >=60 [facility] Comment on above: Performed By: #### F T4 #### [facility] [address] [place] [address] Dr. Benito Schwartz Glucose [Mass/Vol] 123 mg/dL Critically high 74-106 [facility] Comment on above: Performed By: #### F T4 #### [facility] [address] [place] [address] Dr. Benito Schwartz Potassium [Moles/Vol] 4.0 mmol/L Normal 3.5-5.1 [facility] Comment on above: Performed By: #### F T4 #### [facility] [address] [place] [address] Dr. Benito Schwartz Sodium [Moles/Vol] 141 mmol/L Normal 136-145 [facility] Comment on above: Performed By: #### F T4 #### [facility] [address] [place] [address] Dr. Benito Schwartz Urea nitrogen [Mass/Vol] 51.0 mg/dL Critically high 7.0-18.0 [facility] Comment on above: Performed By: #### F T4 #### [facility] [address] [place] [address] Dr. Benito Schwartz Urea nitrogen/Creatinine [Mass ratio] 22.2 mg/mg Normal [facility] Comment on above: Performed By: #### F T4 #### [facility] [address] [place] [address] Dr. Benito Schwartz TSHon 05-12-2022 TSH Qn m[IU]/L Critically low 0.358-3.740 [facility] Comment on above: Performed By: #### C BC #### [facility] [address] [place] [address] Dr. Benito Schwartz UA RANDOMon 05-12-2022 Bilirubin Ql (U) Negative Normal NEGATIVE [facility] Comment on above: Performed By: #### U RTPCR #### [facility] [address] [place] [address] Dr. Benito Schwartz Clarity (U) CLEAR Normal CLEAR [facility] Comment on above: Performed By: #### U RTPCR #### [facility] [address] [place] [address] Dr. Beinto Schwartz Color (U) LT. YELLOW Normal YELLOW [facility] Comment on above: Performed By: #### U RTPCR #### [facility] [address] [place] [address] Dr. Benito Schwartz Glucose Ql (U) Negative Normal NEGATIVE [facility] Comment on above: Performed By: #### U RTPCR #### [facility] [address] [place] [address] Dr. Benito Schwartz Hemoglobin Ql (U) Negative Normal NEGATIVE [facility] Comment on above: Performed By: #### U RTPCR #### [facility] [address] [place] [address] Dr. Benito Schwartz Ketones Ql (U) Negative Normal NEGATIVE [facility] Comment on above: Performed By: #### U RTPCR #### [facility] [address] [place] [address] Dr. Benito Schwartz LEUKOCYTES Negative Normal NEGATIVE [facility] Comment on above: Performed By: #### U RTPCR #### [facility] [address] [place] [address] Dr. Benito Schwartz Nitrite Ql (U) Negative Normal NEGATIVE [facility] Comment on above: Performed By: #### U RTPCR #### [facility] [address] [place] [address] Dr. Benito Schwartz pH (U) 5.5 [pH] Normal 5-9 [facility] Comment on above: Performed By: #### U RTPCR #### [facility] [address] [place] [address] Dr. Benito Schwartz SPEC GRAVITY 1.010 Normal 1.005-<=1.02 5 [facility] Comment on above: Performed By: #### U RTPCR #### [facility] [address] [place] [address] Dr. Benito Schwartz UA PROTEIN Negative Normal NEGATIVE/ TRACE [facility] Comment on above: Performed By: #### U RTPCR #### [facility] [address] [place] [address] Dr. Benito Schwartz Urobilinogen Qn (U) 0.2 {Jagruti'U}/dL Normal 0.2 - 1. 0 [facility] Comment on above: Performed By: #### U RTPCR #### [facility] [address] [place] [address] Dr. Benito Schwartz URINE T PROTEIN CREAT RATIOo n 05-12-2022 Protein (U) [Mass/Vol] 18.3 mg/dL Critically high <=12.0 [facility] Comment on above: Performed By: #### U RTPCR #### [facility] [address] [place] [address] Dr. Benito Schwartz UR PROT CREAT RAT 0.39 Normal [facility] Comment on above: Performed By: #### U RTPCR #### [facility] [address] [place] [address] Dr. Benito Schwartz URINE CREAT 47.44 mg/dL Normal 20.00-300.00 [facility] Comment on above: Performed By: #### U RTPCR #### [facility] [address] [place] [address] Dr. Benito Schwartz HEMOGLOBINon 05-10-2022 Hemoglobin (Bld) [Mass/Vol] 9.6 g/dL Critically low 14.0-18.0 [facility] Comment on above: Performed By: #### F T4, PSASC #### [facility] [address] [place] [address] Dr. Benito Schwartz NM THY SCAN W [...] JJ HI Date: 2022-04-28 09:05 Normal [facility] T3, TOTAL (TRIIODOTHYRONINE) on 04-09-2022 T3, TOTAL 167 ng/dL Normal 71-180 [facility] Comment on above: Performed By: #### B 12FOL, FETIBC #### [facility] [address] [place] [address] Dr. Benito Schwartz FREE T3on 04-08-2022 FREE T3 6.07 pg/mlL Critically high 2.18-3.98 [facility] Comment on above: Performed By: #### T SH, FT3, BMP #### [facility] [address] [place] [address] Dr. Benito Schwartz FREE T4on 04-08-2022 Free T4 [Mass/Vol] 2.62 ng/dL Critically high 0.76-1.46 [facility] Comment on above: Performed By: #### T KRISTOPHER, FT3, BMP #### [facility] [address] [place] [address] Dr. Benito Schwartz PROF CHEM 8 (BAS METB)on Anion gap [Moles/Vol] 13.5 mmol/L Normal [facility] Comment on above: Performed By: #### B 12FOL, FETIBC #### [facility] [address] [place] [address] Dr. Benito Schwartz Calcium [Mass/Vol] 9.9 mg/dL Normal 8.5-10.1 [facility] Comment on above: Performed By: #### B 12FOL, FETIBC #### [facility] [address] [place] [address] Dr. Benito Schwartz Chloride [Moles/Vol] 105 mmol/L Normal 98-107 [facility] Comment on above: Performed By: #### B 12FOL, FETIBC #### [facility] [address] [place] [address] Dr. Benito Schwartz CO2 [Moles/Vol] 26.5 mmol/L Normal 21.0-32.0 [facility] Comment on above: Performed By: #### B 12FOL, FETIBC #### [facility] [address] [place] [address] Dr. Benito Schwartz Creatinine [Mass/Vol] 2.33 mg/dL Critically high 0.70-1.30 [facility] Comment on above: Performed By: #### B 12FOL, FETIBC #### [facility] [address] [place] [address] Dr. Benito Schwartz EGFR-AF SAO TOMEAN 33 mL/min/1.73m2 Critically low >=60 [facility] Comment on above: Performed By: #### B 12FOL, FETIBC #### [facility] [address] [address] [address] Benito Schwartz EGFR-NON AF SAO TOMEAN 27 mL/min/1.73m2 Critically low >=60 [facility] Comment on above: Performed By: #### B 12FOL, FETIBC #### [facility] [address] [address] [address] Benito Schwartz Glucose [Mass/Vol] 104 mg/dL Normal 74-106 [facility] Comment on above: Performed By: #### B 12FOL, FETIBC #### [facility] [address] [place] [address] Dr. Benito Schwartz Potassium [Moles/Vol] 5.0 mmol/L Normal 3.5-5.1 [facility] Comment on above: Performed By: #### B 12FOL, FETIBC #### [facility] [address] [place] [address] Dr. Benito Schwartz Sodium [Moles/Vol] 140 mmol/L Normal 136-145 [facility] Comment on above: Performed By: #### B 12FOL, FETIBC #### [facility] [address] [place] [address] Dr. Benito Schwartz Urea nitrogen [Mass/Vol] 60.0 mg/dL Critically high 7.0-18.0 [facility] Comment on above: Performed By: #### B 12FOL, FETIBC #### [facility] [address] [place] [address] Dr. Benito Schwartz Urea nitrogen/Creatinine [Mass ratio] 25.8 mg/mg Normal [facility] Comment on above: Performed By: #### B 12FOL, FETIBC #### [facility] [address] [place] [address] Dr. Benito Schwartz TSHon 04-08-2022 TSH Qn m[IU]/L Critically low 0.358-3.740 [facility] Comment on above: Performed By: #### T SH, FT3, BMP #### [facility] [address] [address] [address] Benito Schwartz BASIC METABOLIC PANELon 03-16 Calcium [Mass/Vol] 9.1 mg/dL Normal 8.6-10.3 [facility] Comment on above: Order Comment: No: D o not add to previous draw Performed By: #### 1 69, [id number] #### [facility] [address] [place] [address], [place] Chloride [Moles/Vol] 106 mmol/L Normal 98-107 [facility] Comment on above: Order Comment: No: D o not add to previous draw Performed By: #### 1 69, [id number] #### [facility] [address] [place] [address], [place] CO2 [Moles/Vol] 25 mmol/L Normal 21-31 [facility] Comment on above: Order Comment: No: D o not add to previous draw Performed By: #### 1 69, [id number] #### [facility] [address] [place] [address], [place] Creatinine [Mass/Vol] 2.12 mg/dL High 0.70-1.30 [facility] Comment on above: Order Comment: No: D o not add to previous draw Performed By: #### 1 69, 08855 #### [facility] [address] [place] [address], [place] eGFR- 37 ml/min/1.73sq m Abnormal >60 [facility] Comment on above: Order Comment: No: D o not add to previous draw Result Comment: Calc ulation may not be valid for patients over 70 years Performed By: #### 1 69, 71051 #### [facility] [address] [place] [address], [place] eGFR- non- 30 ml/min/1.73sq m Abnormal >60 [facility] Comment on above: Order Comment: No: D o not add to previous draw Result Comment: Calc ulation may not be valid for patients over 70 years Performed By: #### 1 69, 64033 #### [facility] [address] [place] [address], [place] Glucose [Mass/Vol] 93 mg/dL Normal 70-100 [facility] Comment on above: Order Comment: No: D o not add to previous draw Performed By: #### 1 69, 25361 #### [facility] [address] [place] [address], [place] Potassium [Moles/Vol] 3.9 mmol/L Normal 3.5-5.1 [facility] Comment on above: Order Comment: No: D o not add to previous draw Performed By: #### 1 69, 57557 #### [facility] [address] [place] [address], [place] Sodium [Moles/Vol] 141 mmol/L Normal 136-145 [facility] Comment on above: Order Comment: No: D o not add to previous draw Performed By: #### 1 69, 15487 #### [facility] [address] [place] [address], [place] Urea nitrogen [Mass/Vol] 56 mg/dL High 7-25 [facility] Comment on above: Order Comment: No: D o not add to previous draw Performed By: #### 1 69, 16470 #### [facility] [address] [place] [address], [place] CBC COMPLETE BLOOD COUNTon 0 - Erythrocyte distribution width (RBC) [Ratio] 13.6 % Normal 11.5-15.0 [facility] Comment on above: Order Comment: No: D o not add to previous draw Performed By: #### 5 0103 #### [facility] [address] [place] [address], [place] Hematocrit (Bld) [Volume fraction] 26.2 % Low 39.0-50.0 [facility] Comment on above: Order Comment: No: D o not add to previous draw Performed By: #### 5 0103 #### [facility] [address] [place] [address], [facility] Hemoglobin (Bld) [Mass/Vol] 8.7 g/dL Low 13.0-17.0 [facility] Comment on above: Order Comment: No: D o not add to previous draw Performed By: #### 5 0103 #### [facility] [address] [place] [address], [facility] MCH (RBC) [Entitic mass] 29.3 pg Normal 27.0-33.0 [facility] Comment on above: Order Comment: No: D o not add to previous draw Performed By: #### 5 0103 #### [facility] [address] MCHC (RBC) [Mass/Vol] 33.2 g/dL Normal 32.0-35.0 [facility] Comment on above: Order Comment: No: D o not add to previous draw Performed By: #### 5 0103 #### [facility] [address] [place] [address], [facility] MCV (RBC) [Entitic vol] 88.2 fL Normal 82.0-98.[address] [facility] Comment on above: Order Comment: No: D o not add to previous draw Performed By: #### 5 0103 #### [facility] [address] [place] [address], [facility] Nucleated RBC/100 WBC (Bld) [Ratio] 0 % Normal 0-0 [facility] Comment on above: Order Comment: No: D o not add to previous draw Performed By: #### 5 0103 #### [facility] [address] [place] [address], [facility] PLAT CNT 190 10*3/uL Normal 150-400 [facility] Comment on above: Order Comment: No: D o not add to previous draw Performed By: #### 5 0103 #### [facility] [address] [place] [address], [facility] RBC (Bld) [#/Vol] 2.97 10*6/uL Low 4.20-5.70 [facility] Comment on above: Order Comment: No: D o not add to previous draw Performed By: #### 5 0103 #### [facility] [address] [place] [address], [facility] WBC (Bld) [#/Vol] 5.20 10*3/uL Normal 4.00-10.60 [facility] Comment on above: Order Comment: No: D o not add to previous draw Performed By: #### 5 0103 #### [facility] [address] [facility] MAGNESIUM BLOODon 04-02-2022 Magnesium [Mass/Vol] 2.2 mg/dL Normal 1.9-2.7 [facility] Comment on above: Order Comment: No: D o not add to previous draw Performed By: #### 1 0070, 86518 #### [facility] [address] [facility] [place] [place] [address], [facility] POC GLUCOSE LABon 04-02-2022 Glucose [Mass/Vol] 99 mg/dL Normal 70-100 [facility] Comment on above: Performed By: #### 5 0608 #### [facility] [address] [facility] [place] [address], [facility] BASIC METABOLIC PANELon 03-16 Calcium [Mass/Vol] 9.1 mg/dL Normal 8.6-10.3 [facility] Comment on above: Order Comment: No: D o not add to previous draw Performed By: #### 5 0608 #### [facility] [address] [place] [address], [place] Chloride [Moles/Vol] 106 mmol/L Normal 98-107 [facility] Comment on above: Order Comment: No: D o not add to previous draw Performed By: #### 5 0608 #### [facility] [address] [place] [address], [place] CO2 [Moles/Vol] 25 mmol/L Normal 21-31 [facility] Comment on above: Order Comment: No: D o not add to previous draw Performed By: #### 5 0608 #### [facility] [address] [place] [address], [place] Creatinine [Mass/Vol] 2.07 mg/dL High 0.70-1.30 [facility] Comment on above: Order Comment: No: D o not add to previous draw Performed By: #### 5 0608 #### [facility] [address] [place] [address], [facility] eGFR- 38 ml/min/1.73sq m Abnormal >60 [facility] Comment on above: Order Comment: No: D o not add to previous draw Result Comment: Calc ulation may not be valid for patients over 70 years Performed By: #### 5 0608 #### [facility] [address] [place] [address], [place] eGFR- non- 31 ml/min/1.73sq m Abnormal >60 [facility] Comment on above: Order Comment: No: D o not add to previous draw Result Comment: Calc ulation may not be valid for patients over 70 years Performed By: #### 5 0608 #### [facility] [address] [place] [address], [place] Glucose [Mass/Vol] 94 mg/dL Normal 70-100 [facility] Comment on above: Order Comment: No: D o not add to previous draw Performed By: #### 5 0608 #### [facility] [address] [place] [address], [place] Potassium [Moles/Vol] 3.9 mmol/L Normal 3.5-5.1 [facility] Comment on above: Order Comment: No: D o not add to previous draw Performed By: #### 5 0608 #### [facility] [address] [place] [address], [place] Sodium [Moles/Vol] 144 mmol/L Normal 136-145 [facility] Comment on above: Order Comment: No: D o not add to previous draw Performed By: #### 5 0608 #### [facility] [address] [place] [address], [facility] Urea nitrogen [Mass/Vol] 54 mg/dL High 7-25 [facility] Comment on above: Order Comment: No: D o not add to previous draw Performed By: #### 5 0608 #### [facility] [address] [place] [id number], [facility] CBC COMPLETE BLOOD COUNTon 0 - Erythrocyte distribution width (RBC) [Ratio] 13.5 % Normal 11.5-15.0 [facility] Comment on above: Order Comment: No: D o not add to previous draw Performed By: #### 5 0608 #### [facility] [address] [place] [address], [facility] Hematocrit (Bld) [Volume fraction] 27.5 % Low 39.0-50.0 [facility] Comment on above: Order Comment: No: D o not add to previous draw Performed By: #### 5 0608 #### [facility] [address] [place] [address], [place] Hemoglobin (Bld) [Mass/Vol] 8.9 g/dL Low 13.0-17.0 [facility] Comment on above: Order Comment: No: D o not add to previous draw Performed By: #### 5 0608 #### [facility] [address] [place] [address], [place] MCH (RBC) [Entitic mass] 29.2 pg Normal 27.0-33.0 [facility] Comment on above: Order Comment: No: D o not add to previous draw Performed By: #### 5 0608 #### [facility] [address] [place] [address], [facility] MCHC (RBC) [Mass/Vol] 32.4 g/dL Normal 32.0-35.0 [facility] Comment on above: Order Comment: No: D o not add to previous draw Performed By: #### 5 0608 #### [facility] [address] [place] [id number], [facility] MCV (RBC) [Entitic vol] 90.2 fL Normal 82.0-98.0 T [facility] Comment on above: Order Comment: No: D o not add to previous draw Performed By: #### 5 0608 #### [facility] [address] [facility] [place] [address], [facility] Nucleated RBC/100 WBC (Bld) [Ratio] 0 % Normal 0-0 [facility] Comment on above: Order Comment: No: D o not add to previous draw Performed By: #### 5 0608 #### [facility] [address] [place] [id number], [facility] PLAT CNT 213 10*3/uL Normal 150-400 [facility] Comment on above: Order Comment: No: D o not add to previous draw Performed By: #### 5 0608 #### [facility] [address] [facility] [place] [id number], [facility] RBC (Bld) [#/Vol] 3.05 10*6/uL Low 4.20-5.70 [facility] Comment on above: Order Comment: No: D o not add to previous draw Performed By: #### 5 0608 #### [facility] [address] [place] [id number], [facility] WBC (Bld) [#/Vol] 6.02 10*3/uL Normal 4.00-10.60 [facility] Comment on above: Order Comment: No: D o not add to previous draw Performed By: #### 5 0608 #### [facility] [address] [place] [address], [facility] Cardiovascular Lab Reporton 04-01-2022 Cardiovascular Lab Report [facility] Patient Name: Nas [facility] MR #: [id number] Physician: Sriram Rick, Department of M.D. Medicine Service Date: 03/31/2022 Division of Birthdate: 1940 Cardiology Room #: 3AB [id number] Adult Cardiovascular Services [facility] [address] [place] [address] Cardiovascular Laboratory Report FINAL IMPRESSIONS: 1. Moderately [...] right internal jugular vein was obtained. A 6-Kinyarwanda 11 cm sheath was inserted without difficulty. [...] Rick M.D. Date Trans: 04/01/2022 02:03 A/hans [id number] cc: Arnie Linda D.O. [address] [place] [id number] Normal [facility] HEMOGLOBIN A1Con 04-01-2022 Glucose [Moles/Vol] 137 mmol/L Normal [facility] Comment on above: Order Comment: If no t done in EDNo: Do not add to previous draw Performed By: #### 5 0103 #### [facility] [address] [facility]. [address] HbA1c (Bld) [Mass fraction] 6.4 % High 4.0-6.0 [facility] Comment on above: Order Comment: If no t done in EDNo: Do not add to previous draw Performed By: #### 5 0103 #### [facility] [address] [facility] [place] [place] [address], [facility] MAGNESIUM BLOODon 04-01-2022 Magnesium [Mass/Vol] 2.2 mg/dL Normal 1.9-2.7 [facility] Comment on above: Order Comment: No: D o not add to previous draw Performed By: #### 5 0608 #### [facility] [address] [place] [address], [place] POC GLUCOSE LABon 04-01-2022 Glucose [Mass/Vol] 114 mg/dL High 70-100 [facility] Comment on above: Performed By: #### 5 0103 #### [facility] [address] [place] [address], [place] Glucose [Mass/Vol] 117 mg/dL High 70-100 [facility] Comment on above: Performed By: #### 5 0608 #### [facility] [address] [place] [address], [place] Glucose [Mass/Vol] 139 mg/dL High 70-100 [facility] Comment on above: Performed By: #### 5 0608 #### [facility] [address] [place] [address], [place] Glucose [Mass/Vol] 98 mg/dL Normal 70-100 [facility] Comment on above: Performed By: #### 5 0608 #### [facility] [address] [place] [address], [place] BASIC METABOLIC PANELon 03-16 Calcium [Mass/Vol] 9.1 mg/dL Normal 8.6-10.3 [facility] Comment on above: Order Comment: No: D o not add to previous draw Performed By: #### 4 4396, 15546, 72716, 28392, 36225 #### [facility] [address] [place] [address], [place] Chloride [Moles/Vol] 104 mmol/L Normal 98-107 [facility] Comment on above: Order Comment: No: D o not add to previous draw Performed By: #### 4 4396, 03307, 87859, 60928, 23277 #### [facility] [address] [place] [address], [place] CO2 [Moles/Vol] 27 mmol/L Normal 21-31 [facility] Comment on above: Order Comment: No: D o not add to previous draw Performed By: #### 4 4396, 20468, 14023, 38140, 87686 #### [facility] [address] [place] [address], [place] Creatinine [Mass/Vol] 2.59 mg/dL High 0.70-1.30 [facility] Comment on above: Order Comment: No: D o not add to previous draw Performed By: #### 4 4396, 39696, 62238, 49457, 69875 #### [facility] [address] [place] [address], [place] eGFR- 29 ml/min/1.73sq m Abnormal >60 [facility] Comment on above: Order Comment: No: D o not add to previous draw Result Comment: Calc ulation may not be valid for patients over 70 years Performed By: #### 4 4396, 78093, 95651, 15816, 03823 #### [facility] [address] [place] [address], [place] eGFR- non- 24 ml/min/1.73sq m Abnormal >60 [facility] Comment on above: Order Comment: No: D o not add to previous draw Result Comment: Calc ulation may not be valid for patients over 70 years Performed By: #### 4 4396, 35472, 25197, 65727, 73563 #### [facility] [address] [place] [address], [place] Glucose [Mass/Vol] 90 mg/dL Normal 70-100 [facility] Comment on above: Order Comment: No: D o not add to previous draw Performed By: #### 4 4396, 53375, 76181, 45980, 14962 #### [facility] [address] [place] [address], [place] Potassium [Moles/Vol] 4.2 mmol/L Normal 3.5-5.1 [facility] Comment on above: Order Comment: No: D o not add to previous draw Performed By: #### 4 4396, 28805, 19452, 76488, 04957 #### [facility] [address] [place] [address], [facility] Sodium [Moles/Vol] 141 mmol/L Normal 136-145 [facility] Comment on above: Order Comment: No: D o not add to previous draw Performed By: #### 4 4396, 35547, 18936, 78700, 39471 #### [facility] [address] [place] [address], [facility] Urea nitrogen [Mass/Vol] 55 mg/dL High 7-25 [facility] Comment on above: Order Comment: No: D o not add to previous draw Performed By: #### 4 4396, 01555, 20399, 71347, 96675 #### [facility] [address] CBC COMPLETE BLOOD COUNTon 0 - Erythrocyte distribution width (RBC) [Ratio] 13.6 % Normal 11.5-15.0 [facility] Comment on above: Order Comment: No: D o not add to previous draw Performed By: #### 5 0608 #### [facility] [address] [place] [id number], [facility] Hematocrit (Bld) [Volume fraction] 27.1 % Low 39.0-50.0 [facility] Comment on above: Order Comment: No: D o not add to previous draw Performed By: #### 5 0608 #### [facility] [address] [place] [id number], [facility] Hemoglobin (Bld) [Mass/Vol] 8.7 g/dL Low 13.0-17.0 [facility] Comment on above: Order Comment: No: D o not add to previous draw Performed By: #### 5 0608 #### [facility] [address] [place] [address], [facility] MCH (RBC) [Entitic mass] 28.8 pg Normal 27.0-33.0 [facility] Comment on above: Order Comment: No: D o not add to previous draw Performed By: #### 5 0608 #### [facility] [address] [place] [id number], [facility] MCHC (RBC) [Mass/Vol] 32.1 g/dL Normal 32.0-35.0 [facility] Comment on above: Order Comment: No: D o not add to previous draw Performed By: #### 5 0608 #### [facility] [address] [place] [id number], [facility] MCV (RBC) [Entitic vol] 89.7 fL Normal 82.0-98.0 T [facility] Comment on above: Order Comment: No: D o not add to previous draw Performed By: #### 5 0608 #### [facility] [address] [facility] [place] [id number], [facility] Nucleated RBC/100 WBC (Bld) [Ratio] 0 % Normal 0-0 [facility] Comment on above: Order Comment: No: D o not add to previous draw Performed By: #### 5 0608 #### [facility] [address] [place] [id number], [facility] PLAT CNT 184 10*3/uL Normal 150-400 [facility] Comment on above: Order Comment: No: D o not add to previous draw Performed By: #### 5 0608 #### [facility] [address] [place] [id number], [facility] RBC (Bld) [#/Vol] 3.02 10*6/uL Low 4.20-5.70 [facility] Comment on above: Order Comment: No: D o not add to previous draw Performed By: #### 5 0608 #### [facility] [address] [place] [id number], [place] WBC (Bld) [#/Vol] 5.93 10*3/uL Normal 4.00-10.60 [facility] Comment on above: Order Comment: No: D o not add to previous draw Performed By: #### 5 0608 #### [facility] [address] [place] [address], [place] FREE T4on 03-31-2022 Free T4 [Mass/Vol] 4.55 ng/dL High 0.71-1.85 [facility] Comment on above: Performed By: #### 5 0103 #### [facility] [address] [place] [address], [facility] MAGNESIUM BLOODon 03-31-2022 Magnesium [Mass/Vol] 2.3 mg/dL Normal 1.9-2.7 [facility] Comment on above: Order Comment: No: D o not add to previous draw Performed By: #### 4 4396, 40712, 89479, 90148, 89433 #### [facility] [address] [place] [address], [facility] PHOSPHORUS BLOODon Phosphate [Mass/Vol] 5.4 mg/dL High 2.5-5.0 [facility] Comment on above: Order Comment: No: D o not add to previous draw Performed By: #### 4 4396, 97930, 67886, 97536, 45333 #### [facility] [address] [place] [address], [facility] POC GLUCOSE LABon 03-31-2022 Glucose [Mass/Vol] 161 mg/dL High 70-100 [facility] Comment on above: Performed By: #### 5 0608 #### [facility] [address] [place] [address], [place] Glucose [Mass/Vol] 108 mg/dL High 70-100 [facility] Comment on above: Performed By: #### 5 0608 #### [facility] [address] [place] [address], [place] POC SARS COV2 ANTIGEN NEGATI VEon 03-31-2022 POC SARS COV2 ANTIGEN NEG Negative Normal NEGATIVE [facility] Comment on above: Result Comment: Nega [...] antigen from SARS-CoV-2 in direct nasopharyngeal swab (BEATER HEAD) specimens from individuals who are suspected of [...] Accreditation. Performed By: #### 5 0103 #### [facility] [address] [facility]. [address] TSH3on 03-31-2022 TSH 3RD GENERATION <0.01 Critically low 0.34-5.60 Th e [facility] Comment on above: Performed By: #### 4 4396, 48286, 13434, 90834, 57098 #### [facility] [address] [facility]. [address] BASIC METABOLIC PANELon 03-16 Calcium [Mass/Vol] 9.8 mg/dL Normal 8.6-10.3 [facility] Comment on above: Order Comment: No: D o not add to previous draw Performed By: #### 5 0103 #### [facility] [address] [facility]. [place] [id number], [facility] Chloride [Moles/Vol] 103 mmol/L Normal 98-107 [facility] Comment on above: Order Comment: No: D o not add to previous draw Performed By: #### 5 0103 #### [facility] [address] [place] [address], [place] CO2 [Moles/Vol] 29 mmol/L Normal 21-31 [facility] Comment on above: Order Comment: No: D o not add to previous draw Performed By: #### 5 0103 #### [facility] [address] [place] [address], [facility] Creatinine [Mass/Vol] 2.60 mg/dL High 0.70-1.30 [facility] Comment on above: Order Comment: No: D o not add to previous draw Performed By: #### 5 0103 #### [facility] [address] [place] [address], [facility] eGFR- 29 ml/min/1.73sq m Abnormal >60 [facility] Comment on above: Order Comment: No: D o not add to previous draw Result Comment: Calc ulation may not be valid for patients over 70 years Performed By: #### 5 0103 #### [facility] [address] [place] [address], [facility] eGFR- non- 24 ml/min/1.73sq m Abnormal >60 [facility] Comment on above: Order Comment: No: D o not add to previous draw Result Comment: Calc ulation may not be valid for patients over 70 years Performed By: #### 5 0103 #### [facility] [address] [place] [address], [place] Glucose [Mass/Vol] 109 mg/dL High 70-100 [facility] Comment on above: Order Comment: No: D o not add to previous draw Performed By: #### 5 0103 #### [facility] [address] [place] [address], [facility] Potassium [Moles/Vol] 4.0 mmol/L Normal 3.5-5.1 [facility] Comment on above: Order Comment: No: D o not add to previous draw Performed By: #### 5 0103 #### [facility] [address] [place] [address], [facility] Sodium [Moles/Vol] 141 mmol/L Normal 136-145 [facility] Comment on above: Order Comment: No: D o not add to previous draw Performed By: #### 5 0103 #### [facility] [address] [place] [address], [facility] Urea nitrogen [Mass/Vol] 55 mg/dL High 7-25 [facility] Comment on above: Order Comment: No: D o not add to previous draw Performed By: #### 5 0103 #### [facility] [address] [place] [address], [facility] CBC W/DIFFon 03-30-2022 ABS IMM GRANS 0.0 10*3/uL Normal 0.0-0.2 [facility] Comment on above: Performed By: #### 5 0103 #### [facility] [address] [place] [address], [facility] ABS NEUTROPHILS 4.1 10*3/uL Normal 1.6-7.6 [facility] [facility] Comment on above: Performed By: #### 5 0103 #### [facility] [address] [place] [address], [facility] Basophils (Bld) [#/Vol] 0.0 10*3/uL Normal 0.0-0.2 [facility] Comment on above: Performed By: #### 5 0103 #### [facility] [address] [place] [address], [facility] Basophils/100 WBC (Bld) 0.3 % Normal 0.0-1.0 T mela [facility] Comment on above: Performed By: #### 5 102 #### [facility] [address] [facility] [address] Eosinophils (Bld) [#/Vol] 0.3 10*3/uL Normal 0.0-0.5 [facility] Comment on above: Performed By: #### 5 3 #### [facility] [address] [facility]. [address] Eosinophils/100 WBC (Bld) 5.3 % Normal 0.0-6.0 [facility] Comment on above: Performed By: #### 3 #### [facility] [address] Erythrocyte distribution width (RBC) [Ratio] 13.7 % Normal 11.5-15.0 [facility] Comment on above: Performed By: #### 102 #### [facility] [address] Hematocrit (Bld) [Volume fraction] 30.2 % Low 39.0-50.0 [facility] Comment on above: Performed By: #### 102 #### [facility] [address] Hemoglobin (Bld) [Mass/Vol] 9.8 g/dL Low 13.0-17.0 [facility] Comment on above: Performed By: #### 3 #### [facility] [address] IMMATURE GRANS 0.3 % Normal 0.0-1.0 [facility] Comment on above: Performed By: #### 102 #### [facility] [address] [place] [address], [facility] Lymphocytes (Bld) [#/Vol] 1.1 10*3/uL Low 1.2-4.0 [facility] Comment on above: Performed By: #### 3 #### [facility] [address] Lymphocytes/100 WBC (Bld) 17.9 % Low 20.0-45.0 [facility] Comment on above: Performed By: #### 5 3 #### [facility] [address] MCH (RBC) [Entitic mass] 29.3 pg Normal 27.0-33.0 [facility] Comment on above: Performed By: #### 5 3 #### [facility] [address] MCHC (RBC) [Mass/Vol] 32.5 g/dL Normal 32.0-35.0 [facility] Comment on above: Performed By: #### 5 102 #### [facility] [address] [place] [address], [facility] MCV (RBC) [Entitic vol] 90.4 fL Normal 82.0-98.0 T he [facility] Comment on above: Performed By: #### 5 3 #### [facility] [address] Monocytes (Bld) [#/Vol] 0.7 10*3/uL Normal 0.1-1.0 [facility] Comment on above: Performed By: #### 5 3 #### [facility] [address] MONOS 11.6 % Normal 5.0-12.0 [facility] Comment on above: Performed By: #### 5 3 #### [facility] [address] Neutrophils/100 WBC (Bld) 64.6 % Normal 40.0-72.0 [facility] Comment on above: Performed By: #### 5 3 #### [facility] [address] [place] [address], [facility] Nucleated RBC/100 WBC (Bld) [Ratio] 0 % Normal 0-0 [facility] Comment on above: Performed By: #### 5 0103 #### [facility] [address] [facility] [place] [address], [facility] PLAT CNT 215 10*3/uL Normal 150-400 [facility] Comment on above: Performed By: #### 5 0103 #### [facility] [address] [facility] [place] [address], [facility] RBC (Bld) [#/Vol] 3.34 10*6/uL Low 4.20-5.70 [facility] Comment on above: Performed By: #### 5 0103 #### [facility] [address] [facility] [place] [address], [facility] WBC (Bld) [#/Vol] 6.38 10*3/uL Normal 4.00-10.60 [facility] Comment on above: Performed By: #### 5 0103 #### [facility] [address] [place] [address], [facility] MAGNESIUM BLOODon 03-30-2022 Magnesium [Mass/Vol] 2.3 mg/dL Normal 1.9-2.7 [facility] Comment on above: Order Comment: No: D o not add to previous draw Performed By: #### 5 0103 #### [facility] [address] [place] [address], [facility] TROPONIN-Ion 03-30-2022 Troponin I.cardiac [Mass/Vol] 0.04 ng/mL Normal 0.00-0.04 [facility] Comment on above: Order Comment: No: D o not add to previous draw Result Comment: REFE RENCE RANGES: 0.00 - 0.04 ng/ml NORMAL 0.05 - 0.50 ng/ml INDETERMINATE > 0.50 ng/ml CONSISTENT WITH AN M.I. Performed By: #### 5 0103 #### [facility] [address] [place] [address], [facility] BNPon 03-25-2022 Natriuretic peptide B (Bld) [Mass/Vol] 7410.0 pg/mL Critically high <=1,800.0 [facility] Comment on above: Performed By: #### F T4 #### [facility] [address] [place] [address] Dr. Benito Schwartz PROF CHEM 8 (BAS METB)on Anion gap [Moles/Vol] 14.5 mmol/L Normal [facility] Comment on above: Performed By: #### F T4 #### [facility] [address] [place] [address] Dr. Benito Schwartz Calcium [Mass/Vol] 9.6 mg/dL Normal 8.5-10.1 [facility] Comment on above: Performed By: #### F T4 #### [facility] [address] [place] [address] Dr. Benito Schwartz Chloride [Moles/Vol] 105 mmol/L Normal 98-107 [facility] Comment on above: Performed By: #### F T4 #### [facility] [address] [place] [address] Dr. Benito Schwartz CO2 [Moles/Vol] 27.6 mmol/L Normal 21.0-32.0 [facility] Comment on above: Performed By: #### F T4 #### [facility] [address] [place] [address] Dr. Benito Schwartz Creatinine [Mass/Vol] 2.48 mg/dL Critically high 0.70-1.30 [facility] Comment on above: Performed By: #### F T4 #### [facility] [address] [place] [address] Dr. Benito Schwartz EGFR-AF SAO TOMEAN 31 mL/min/1.73m2 Critically low >=60 [facility] Comment on above: Performed By: #### F T4 #### [facility] [address] [place] [address] Dr. Benito Schwartz EGFR-NON AF SAO TOMEAN 25 mL/min/1.73m2 Critically low >=60 [facility] Comment on above: Performed By: #### F T4 #### [facility] [address] [address] [address] Benito Schwartz Glucose [Mass/Vol] 116 mg/dL Critically high 74-106 [facility] Comment on above: Performed By: #### F T4 #### [facility] [address] [address] [address] Benito Schwartz Potassium [Moles/Vol] 4.1 mmol/L Normal 3.5-5.1 [facility] Comment on above: Performed By: #### F T4 #### [facility] [address] [place] [address] Dr. Benito Schwartz Sodium [Moles/Vol] 143 mmol/L Normal 136-145 [facility] Comment on above: Performed By: #### F T4 #### [facility] [address] [place] [address] Dr. Benito Schwartz Urea nitrogen [Mass/Vol] 56.0 mg/dL Critically high 7.0-18.0 [facility] Comment on above: Performed By: #### F T4 #### [facility] [address] [place] [address] Dr. Benito Schwartz Urea nitrogen/Creatinine [Mass ratio] 22.6 mg/mg Normal [facility] Comment on above: Performed By: #### F T4 #### [facility] [address] [place] [address] Dr. Benito Schwartz CBC AUTO DIFFon 03-07-2022 BASO # 0.0 103/ul Normal 0.0-0.1 [facility] Comment on above: Performed By: #### V ITAD #### [facility] [address] [place] [address] Dr. Benito Schwartz Basophils/100 WBC (Bld) 0.3 % Normal 0.2-2.0 [facility] Comment on above: Performed By: #### V ITAD #### [facility] [address] [place] [address] Dr. Benito Schwartz EO # 0.1 103/ul Normal 0.0-0.7 [facility] Comment on above: Performed By: #### V ITAD #### [facility] [address] [place] [address] Dr. Benito Schwartz Eosinophils/100 WBC (Bld) 2.4 % Normal 0.9-7.0 [facility] Comment on above: Performed By: #### V ITAD #### [facility] [address] [place] [address] Dr. Benito Schwartz Erythrocyte distribution width (RBC) [Ratio] 13.4 % Normal 11.0-15.0 [facility] Comment on above: Performed By: #### V ITAD #### [facility] [address] [place] [address] Dr. Benito Schwartz Hematocrit (Bld) [Volume fraction] 27.7 % Critically low 42.0-54.0 [facility] Comment on above: Performed By: #### V ITAD #### [facility] [address] [place] [address] Dr. Benito Schwartz Hemoglobin (Bld) [Mass/Vol] 8.8 g/dL Critically low 14.0-18.0 [facility] Comment on above: Performed By: #### V ITAD #### [facility] [address] [place] [address] Dr. Benito Schwartz IG # 0.02 10e3/ul Normal 0.00-0.03 [facility] Comment on above: Performed By: #### V ITAD #### [facility] [address] [place] [address] Dr. Benito Schwartz IG % 0.3 % Normal 0.0-0.5 [facility] Comment on above: Performed By: #### V ITAD #### [facility] [address] [place] [address] Dr. Benito Schwartz LYMPH # 1.1 103/ul Critically low 1.2-3.8 [facility] Comment on above: Performed By: #### V ITAD #### [facility] [address] [place] [address] Dr. Benito Schwartz Lymphocytes/100 WBC (Bld) 17.9 % Critically low 20.5-60.0 [facility] Comment on above: Performed By: #### V ITAD #### [facility] [address] [place] [address] Dr. Benito Schwartz MANUAL DIFF REQ NO Normal [facility] Comment on above: Performed By: #### V ITAD #### [facility] [address] [place] [address] Dr. Benito Schwartz MCH (RBC) [Entitic mass] 29.0 pg Normal 25.9-34.0 [facility] Comment on above: Performed By: #### V ITAD #### [facility] [address] [place] [address] Dr. Benito Schwartz MCHC (RBC) [Mass/Vol] 31.8 g/dL Normal 29.9-35.2 [facility] Comment on above: Performed By: #### V ITAD #### [facility] [address] [place] [address] Dr. Benito Schwartz MCV (RBC) [Entitic vol] 91.4 fL Normal 80.0-94.0 [facility] Comment on above: Performed By: #### V ITAD #### [facility] [address] [place] [address] Dr. Benito Schwartz MONO # 0.9 103/ul Critically high 0.3-0.8 [facility] Comment on above: Performed By: #### V ITAD #### [facility] [address] [place] [address] Dr. Benito Schwartz Monocytes/100 WBC (Bld) 15.3 % Critically high 1.7-12. 0 [facility] Comment on above: Performed By: #### V ITAD #### [facility] [address] [place] [address] Dr. Benito Schwartz NEUT # 3.7 103/ul Normal 1.4-6.5 [facility] Comment on above: Performed By: #### V ITAD #### [facility] [address] [place] [address] Dr. Benito Schwartz Neutrophils/100 WBC (Bld) 63.8 % Normal 43.0-75.0 [facility] Comment on above: Performed By: #### V ITAD #### [facility] [address] [address] [address] Benito Schwartz Platelet mean volume (Bld) [Entitic vol] 9.8 fL Normal 9.5-13.5 [facility] Comment on above: Performed By: #### V ITAD #### [facility] [address] [address] [address] Benito Schwartz PLT 212 103/ul Normal 150-450 [facility] Comment on above: Performed By: #### V ITAD #### [facility] [address] [place] [address] Dr. Benito Schwartz RBC 3.03 106/ul Critically low 4.70-6.10 [facility] Comment on above: Performed By: #### V ITAD #### [facility] [address] [place], [place] [address] Dr. Benito Schwartz WBC 5.9 103/ul Normal 4.0-11.0 [facility] Comment on above: Performed By: #### V ITAD #### [facility] [address] [place], [place] [id number] Dr. Benito Schwartz ECHOCARDIO M/2D COMPLETEon 0 03-07-2022 ECHOCARDIO M/2D COMPLETE Patient: NAS REN Exam Date: 03/07/2022 : 1940 Gender:M Ordering : DR RUPINDER GRIGSBY . Admission #: [id number] Family : DR ARNIE LINDA D.O. Order #: [id number] CLICK HERE TO VIEW EXAM ECHOCARDIOGRAM REPORT [...] Area(A4C): 23.30 cm2 Left Atrium Systolic Volume(A2C): 37669 mm3 Left Atrium Systolic Volume(A4C): 80954 mm3 Mitral Valve MV E to A [...] Rick M.D. on 03/08/2022 at 11:16 Normal [facility] OCC BLD IMMUNO SCREENon 02-14 OCCULT BLOOD Negative Normal NEGATIVE [facility] Comment on above: Performed By: #### V ITAD #### [facility] [address] [place] [address] Dr. Benito Schwartz POINT OF CARE GLUCOSEon 02-14 Glucose [Mass/Vol] 124 mg/dL Critically high 74-106 [facility] Comment on above: Performed By: #### B 12FOL, FETIBC #### [facility] [address] [address] [address] Benito Schwartz PROF CHEM 8 (BAS METB)on Anion gap [Moles/Vol] 13.1 mmol/L Normal [facility] Comment on above: Performed By: #### B 12FOL, FETIBC #### [facility] [address] [address] [address] Benito Schwartz Calcium [Mass/Vol] 9.2 mg/dL Normal 8.5-10.1 [facility] Comment on above: Performed By: #### B 12FOL, FETIBC #### [facility] [address] [address] [address] Benito Schwartz Chloride [Moles/Vol] 105 mmol/L Normal 98-107 [facility] Comment on above: Performed By: #### B 12FOL, FETIBC #### [facility] [address] [address] [address] Benito Schwartz CO2 [Moles/Vol] 28.6 mmol/L Normal 21.0-32.0 [facility] Comment on above: Performed By: #### B 12FOL, FETIBC #### [facility] [address] [place] [address] Dr. Benito Schwartz Creatinine [Mass/Vol] 2.22 mg/dL Critically high 0.70-1.30 [facility] Comment on above: Performed By: #### B 12FOL, FETIBC #### [facility] [address] [place] [address] Dr. Benito Schwartz EGFR-AF SAO TOMEAN 35 mL/min/1.73m2 Critically low >=60 [facility] Comment on above: Performed By: #### B 12FOL, FETIBC #### [facility] [address] [place] [address] Dr. Benito Schwartz EGFR-NON AF SAO TOMEAN 29 mL/min/1.73m2 Critically low >=60 [facility] Comment on above: Performed By: #### B 12FOL, FETIBC #### [facility] [address] [place] [address] Dr. Benito Schwartz Glucose [Mass/Vol] 110 mg/dL Critically high 74-106 [facility] Comment on above: Performed By: #### B 12FOL, FETIBC #### [facility] [address] [place] [address] Dr. Benito Schwartz Potassium [Moles/Vol] 3.7 mmol/L Normal 3.5-5.1 [facility] Comment on above: Performed By: #### B 12FOL, FETIBC #### [facility] [address] [place] [address] Dr. Benito Schwartz Sodium [Moles/Vol] 143 mmol/L Normal 136-145 [facility] Comment on above: Performed By: #### B 12FOL, FETIBC #### [facility] [address] [place] [address] Dr. Benito Schwartz Urea nitrogen [Mass/Vol] 66.0 mg/dL Critically high 7.0-18.0 [facility] Comment on above: Performed By: #### B 12FOL, FETIBC #### [facility] [address] [place] [address] Dr. Benito Schwartz Urea nitrogen/Creatinine [Mass ratio] 29.7 mg/mg Normal [facility] Comment on above: Performed By: #### B 12FOL, FETIBC #### [facility] [address] [place] [address] Dr. Benito Schwartz CBC AUTO DIFFon 03-06-2022 BASO # 0.0 103/ul Normal 0.0-0.1 [facility] Comment on above: Performed By: #### B 12FOL, FETIBC #### [facility] [address] [place] [address] Dr. Benito Schwartz Basophils/100 WBC (Bld) 0.2 % Normal 0.2-2.0 [facility] Comment on above: Performed By: #### B 12FOL, FETIBC #### [facility] [address] [place] [address] Dr. Benito Schwartz EO # 0.1 103/ul Normal 0.0-0.7 [facility] Comment on above: Performed By: #### B 12FOL, FETIBC #### [facility] [address] [place] [address] Dr. Benito Schwartz Eosinophils/100 WBC (Bld) 2.4 % Normal 0.9-7.0 [facility] Comment on above: Performed By: #### B 12FOL, FETIBC #### [facility] [address] [place] [address] Dr. Benito Schwartz Erythrocyte distribution width (RBC) [Ratio] 13.8 % Normal 11.0-15.0 [facility] Comment on above: Performed By: #### B 12FOL, FETIBC #### [facility] [address] [place] [address] Dr. Benito Schwartz Hematocrit (Bld) [Volume fraction] 27.7 % Critically low 42.0-54.0 [facility] Comment on above: Performed By: #### B 12FOL, FETIBC #### [facility] [address] [address] [address] Benito Schwartz Hemoglobin (Bld) [Mass/Vol] 8.7 g/dL Critically low 14.0-18.0 [facility] Comment on above: Performed By: #### B 12FOL, FETIBC #### [facility] [address] [place] [address] Dr. Benito Schwartz IG # 0.02 10e3/ul Normal 0.00-0.03 [facility] Comment on above: Performed By: #### B 12FOL, FETIBC #### [facility] [address] [place] [address] Dr. Benito Schwartz IG % 0.3 % Normal 0.0-0.5 [facility] Comment on above: Performed By: #### B 12FOL, FETIBC #### [facility] [address] [place] [address] Dr. Benito Schwartz LYMPH # 1.0 103/ul Critically low 1.2-3.8 [facility] Comment on above: Performed By: #### B 12FOL, FETIBC #### [facility] [address] [place] [address] Dr. Benito Schwartz Lymphocytes/100 WBC (Bld) 16.7 % Critically low 20.5-60.0 [facility] Comment on above: Performed By: #### B 12FOL, FETIBC #### [facility] [address] [place] [address] Dr. Benito Schwartz MANUAL DIFF REQ NO Normal [facility] Comment on above: Performed By: #### B 12FOL, FETIBC #### [facility] [address] [place] [address] Dr. Benito Schwartz MCH (RBC) [Entitic mass] 29.1 pg Normal 25.9-34.0 [facility] Comment on above: Performed By: #### B 12FOL, FETIBC #### [facility] [address] [place] [address] Dr. Benito Schwartz MCHC (RBC) [Mass/Vol] 31.4 g/dL Normal 29.9-35.2 [facility] Comment on above: Performed By: #### B 12FOL, FETIBC #### [facility] [address] [place] [address] Dr. Benito Schwartz MCV (RBC) [Entitic vol] 92.6 fL Normal 80.0-94.0 [facility] Comment on above: Performed By: #### B 12FOL, FETIBC #### [facility] [address] [place] [address] Dr. Benito Schwartz MONO # 0.9 103/ul Critically high 0.3-0.8 [facility] Comment on above: Performed By: #### B 12FOL, FETIBC #### [facility] [address] [place] [address] Dr. Benito Schwartz Monocytes/100 WBC (Bld) 15.3 % Critically high 1.7-12. 0 [facility] Comment on above: Performed By: #### B 12FOL, FETIBC #### [facility] [address] [place] [address] Dr. Benito Schwartz NEUT # 3.7 103/ul Normal 1.4-6.5 [facility] Comment on above: Performed By: #### B 12FOL, FETIBC #### [facility] [address] [place] [address] Dr. Benito Schwartz Neutrophils/100 WBC (Bld) 65.1 % Normal 43.0-75.0 [facility] Comment on above: Performed By: #### B 12FOL, FETIBC #### [facility] [address] [place] [address] Dr. Benito Schwartz Platelet mean volume (Bld) [Entitic vol] 9.7 fL Normal 9.5-13.5 [facility] Comment on above: Performed By: #### B 12FOL, FETIBC #### [facility] [address] [place] [address] Dr. Benito Schwartz PLT 205 103/ul Normal 150-450 [facility] Comment on above: Performed By: #### B 12FOL, FETIBC #### [facility] [address] [address] [address] Benito Schwartz RBC 2.99 106/ul Critically low 4.70-6.10 [facility] Comment on above: Performed By: #### B 12FOL, FETIBC #### [facility] [address] [address] [address] Benito Schwartz WBC 5.7 103/ul Normal 4.0-11.0 [facility] Comment on above: Performed By: #### B 12FOL, FETIBC #### [facility] [address] [address] [address] HEAD WO CONon [...] by: ANTHONY TRACEY Date: 2022-03-06 12:33 Normal [facility] IRON AND TIBCon 03-06-2022 % SATURATION 24.7 % Normal [facility] Comment on above: Performed By: #### B 12FOL, FETIBC #### [facility] [address] [address] [address] Benito Schwartz Iron [Mass/Vol] 55.0 ug/dL Critically low 65.0-175.0 [facility] Comment on above: Performed By: #### B 12FOL, FETIBC #### [facility] [address] [address] [address] Benito Schwartz TIBC DIRECT 223.0 ug/dL Critically low 250.0-450.0 [facility] Comment on above: Performed By: #### B 12FOL, FETIBC #### [facility] [address] [address] [address] Benito Schwartz POINT OF CARE GLUCOSEon 02-14 Glucose [Mass/Vol] 145 mg/dL Critically high 74-106 [facility] Comment on above: Performed By: #### V ITAD #### [facility] [address] [address] [address] Benito Schwartz PROF CHEM 8 (BAS METB)on Anion gap [Moles/Vol] 14.6 mmol/L Normal [facility] Comment on above: Performed By: #### V ITAD #### [facility] [address] [place] [address] Dr. Benito Schwartz Calcium [Mass/Vol] 9.0 mg/dL Normal 8.5-10.1 [facility] Comment on above: Performed By: #### V ITAD #### [facility] [address] [address] [address] Benito Schwartz Chloride [Moles/Vol] 106 mmol/L Normal 98-107 [facility] Comment on above: Performed By: #### V ITAD #### [facility] [address] [place] [address] Dr. Benito Schwartz CO2 [Moles/Vol] 26.3 mmol/L Normal 21.0-32.0 [facility] Comment on above: Performed By: #### V ITAD #### [facility] [address] [address] [address] Benito Schwartz Creatinine [Mass/Vol] 2.40 mg/dL Critically high 0.70-1.30 [facility] Comment on above: Performed By: #### V ITAD #### [facility] [address] [place] [address] Dr. Benito Schwartz EGFR-AF SAO TOMEAN 32 mL/min/1.73m2 Critically low >=60 [facility] Comment on above: Performed By: #### V ITAD #### [facility] [address] [address] [address] Benito Schwartz EGFR-NON AF SAO TOMEAN 26 mL/min/1.73m2 Critically low >=60 [facility] Comment on above: Performed By: #### V ITAD #### [facility] [address] [address] [address] Benito Schwartz Glucose [Mass/Vol] 108 mg/dL Critically high 74-106 [facility] Comment on above: Performed By: #### V ITAD #### [facility] [address] [address] [address] Benito Schwartz Potassium [Moles/Vol] 3.9 mmol/L Normal 3.5-5.1 [facility] Comment on above: Performed By: #### V ITAD #### [facility] [address] [address] [address] Benito Schwartz Sodium [Moles/Vol] 143 mmol/L Normal 136-145 [facility] Comment on above: Performed By: #### V ITAD #### [facility] [address] [address] [address] Benito Schwartz Urea nitrogen [Mass/Vol] 72.0 mg/dL Critically high 7.0-18.0 [facility] Comment on above: Performed By: #### V ITAD #### [facility] [address] [address] [address] Benito Schwartz Urea nitrogen/Creatinine [Mass ratio] 30.0 mg/mg Normal [facility] Comment on above: Performed By: #### V ITAD #### [facility] [address] [address] [address] Benito Schwartz VIT B12 AND FOLATEon 022 Cobalamin (Vitamin B12) [Mass/Vol] 432.0 pg/mL Normal 193.0-986.0 [facility] Comment on above: Performed By: #### B 12FOL, FETIBC #### [facility] [address] [address] [address] Benito Schwartz FOLATE 21.60 ng/mL Normal 8.60-58.90 [facility] Comment on above: Performed By: #### B 12FOL, FETIBC #### [facility] [address] [place] [address] Dr. Benito Schwartz BNPon 03-05-2022 Natriuretic peptide B (Bld) [Mass/Vol] 6910.0 pg/mL Critically high <=1,800.0 [facility] Comment on above: Result Comment: Test Repeated. Critical Value Verified Performed By: #### B 12FOL, FETIBC #### [facility] [address] [place] [address] Dr. Benito Schwartz CBC AUTO DIFFon 03-05-2022 BASO # 0.0 103/ul Normal 0.0-0.1 [facility] Comment on above: Performed By: #### F T4, PSASC #### [facility] [address] [place] [address] Dr. Benito Schwartz Basophils/100 WBC (Bld) 0.3 % Normal 0.2-2.0 [facility] Comment on above: Performed By: #### F T4, PSASC #### [facility] [address] [place] [address] Dr. Benito Schwartz EO # 0.2 103/ul Normal 0.0-0.7 [facility] Comment on above: Performed By: #### F T4, PSASC #### [facility] [address] [place] [address] Dr. Benito Schwartz Eosinophils/100 WBC (Bld) 2.7 % Normal 0.9-7.0 [facility] Comment on above: Performed By: #### F T4, PSASC #### [facility] [address] [place] [address] Dr. Benito Schwartz Erythrocyte distribution width (RBC) [Ratio] 13.7 % Normal 11.0-15.0 [facility] Comment on above: Performed By: #### F T4, PSASC #### [facility] [address] [place] [address] Dr. Benito Schwartz Hematocrit (Bld) [Volume fraction] 27.9 % Critically low 42.0-54.0 [facility] Comment on above: Performed By: #### F T4, PSASC #### [facility] [address] [place] [address] Dr. Benito Schwartz Hemoglobin (Bld) [Mass/Vol] 8.9 g/dL Critically low 14.0-18.0 [facility] Comment on above: Performed By: #### F T4, PSASC #### [facility] [address] [place] [address] Dr. Benito Schwartz IG # 0.01 10e3/ul Normal 0.00-0.03 [facility] Comment on above: Performed By: #### F T4, PSASC #### [facility] [address] [place] [address] Dr. Benito Schwartz IG % 0.2 % Normal 0.0-0.5 [facility] Comment on above: Performed By: #### F T4, PSASC #### [facility] [address] [place] [address] Dr. Benito Schwartz LYMPH # 1.3 103/ul Normal 1.2-3.8 [facility] Comment on above: Performed By: #### F T4, PSASC #### [facility] [address] [place] [address] Dr. Benito Schwartz Lymphocytes/100 WBC (Bld) 21.5 % Normal 20.5-60.0 [facility] Comment on above: Performed By: #### F T4, PSASC #### [facility] [address] [place] [address] Dr. Benito Schwartz MANUAL DIFF REQ NO Normal [facility] Comment on above: Performed By: #### F T4, PSASC #### [facility] [address] [place] [address] Dr. Benito Schwartz MCH (RBC) [Entitic mass] 29.5 pg Normal 25.9-34.0 [facility] Comment on above: Performed By: #### F T4, PSASC #### [facility] [address] [place] [address] Dr. Benito Schwartz MCHC (RBC) [Mass/Vol] 31.9 g/dL Normal 29.9-35.2 [facility] Comment on above: Performed By: #### F T4, PSASC #### [facility] [address] [place] [address] Dr. Benito Schwartz MCV (RBC) [Entitic vol] 92.4 fL Normal 80.0-94.0 [facility] Comment on above: Performed By: #### F T4, PSASC #### [facility] [address] [place] [address] Dr. Benito Schwartz MONO # 1.0 103/ul Critically high 0.3-0.8 [facility] Comment on above: Performed By: #### F T4, PSASC #### [facility] [address] [place] [address] Dr. Benito Schwartz Monocytes/100 WBC (Bld) 16.3 % Critically high 1.7-12. 0 [facility] Comment on above: Performed By: #### F T4, PSASC #### [facility] [address] [place] [address] Dr. Benito Schwartz NEUT # 3.5 103/ul Normal 1.4-6.5 [facility] Comment on above: Performed By: #### F T4, PSASC #### [facility] [address] [place] [address] Dr. Benito Schwartz Neutrophils/100 WBC (Bld) 59.0 % Normal 43.0-75.0 [facility] Comment on above: Performed By: #### F T4, PSASC #### [facility] [address] [place] [address] Dr. Benito Schwartz Platelet mean volume (Bld) [Entitic vol] 9.5 fL Normal 9.5-13.5 [facility] Comment on above: Performed By: #### F T4, PSASC #### [facility] [address] [place] [address] Dr. Benito Schwartz PLT 213 103/ul Normal 150-450 [facility] Comment on above: Performed By: #### F T4, PSASC #### [facility] [address] [place], [place] [id number] Dr. Benito Schwartz RBC 3.02 106/ul Critically low 4.70-6.10 [facility] Comment on above: Performed By: #### F T4, PSASC #### [facility] [address] [place] [address] Dr. Benito Schwartz WBC 5.9 103/ul Normal 4.0-11.0 [facility] Comment on above: Performed By: #### F T4, PSASC #### [facility] [address] [place] [address] Dr. Benito Schwartz CULTURE BLOODon 03-05-2022 Microscopic examination of blood, culture Culture Observations: NO GROWTH AT 5 DAYS. Normal [facility] Comment on above: Performed By: #### V ITAD #### [facility] [address] [place] [address] Dr. Benito Schwartz Cov[facility]-19 PCR [facility]on 02-14 SARS-CoV-2 (COVID-19) RNA ZITA+probe Ql (Unsp spec) Not detected Normal NOT DETECTED [facility] Comment on above: Result Comment: This test is not yet approved or cleared by the [place] FDA. When there are no FDA-approved or cleared tests available, and other criteria are met, FDA can make tests available under an emergency access mechanism called an Emergency Use Authorization (EUA). The EUA for this test is supported by the General Expeditor of Health and Human Service's (HHS's) declaration [...] SARS-CoV-2. Performed By: #### C BC #### [facility] [address] [place] [address] Dr. Benito Schwartz FREE T4on 03-05-2022 Free T4 [Mass/Vol] ng/dL Critically high 0.76-1.46 [facility] Comment on above: Performed By: #### C BC #### [facility] [address] [place] [address] Dr. Benito Schwartz LACTATE/LACTIC ACIDon 2021 Lactate [Moles/Vol] 1.2 mmol/L Normal 0.4-1.9 [facility] Comment on above: Performed By: #### F T4 #### [facility] [address] [place] [address] Dr. Benito Schwartz PROF 14(COMP METB)on 022 Albumin [Mass/Vol] 2.9 g/dL Critically low 3.4-5.0 [facility] Comment on above: Performed By: #### F T4, PSASC #### [facility] [address] [place] [address] Dr. Benito Schwartz Albumin/Globulin [Mass ratio] 0.8 {ratio} Normal [facility] Comment on above: Performed By: #### F T4, PSASC #### [facility] [address] [place] [address] Dr. Benito Schwartz ALP [Catalytic activity/Vol] 107 U/L Normal 46-116 [facility] Comment on above: Performed By: #### F T4, PSASC #### [facility] [address] [place] [address] Dr. Benito Schwratz ALT [Catalytic activity/Vol] 25 U/L Normal 16-63 [facility] Comment on above: Performed By: #### F T4, PSASC #### [facility] [address] [place] [address] Dr. Benito Schwartz Anion gap [Moles/Vol] 14.2 mmol/L Normal [facility] Comment on above: Performed By: #### F T4, PSASC #### [facility] [address] [place] [address] Dr. Benito Schwartz AST [Catalytic activity/Vol] 17 U/L Normal 15-37 [facility] Comment on above: Performed By: #### F T4, PSASC #### [facility] [address] [address] [address] Benito Schwartz Bilirubin [Mass/Vol] 0.5 mg/dL Normal 0.2-1.0 [facility] Comment on above: Performed By: #### F T4, PSASC #### [facility] [address] [address] [address] Benito Schwartz Calcium [Mass/Vol] 9.1 mg/dL Normal 8.5-10.1 [facility] Comment on above: Performed By: #### F T4, PSASC #### [facility] [address] [address] [address] Benito Schwartz Chloride [Moles/Vol] 104 mmol/L Normal 98-107 [facility] Comment on above: Performed By: #### F T4, PSASC #### [facility] [address] [place] [address] Dr. Benito Schwartz CO2 [Moles/Vol] 27.0 mmol/L Normal 21.0-32.0 [facility] Comment on above: Performed By: #### F T4, PSASC #### [facility] [address] [address] [address] Benito Schwartz Creatinine [Mass/Vol] 2.97 mg/dL Critically high 0.70-1.30 [facility] Comment on above: Performed By: #### F T4, PSASC #### [facility] [address] [address] [address] Benito Schwartz EGFR-AF SAO TOMEAN 25 mL/min/1.73m2 Critically low >=60 [facility] Comment on above: Performed By: #### F T4, PSASC #### [facility] [address] [address] [address] Benito Schwartz EGFR-NON AF SAO TOMEAN 21 mL/min/1.73m2 Critically low >=60 [facility] Comment on above: Performed By: #### F T4, PSASC #### [facility] [address] [address] [address] Benito Schwartz Globulin (S) [Mass/Vol] 3.6 g/dL Normal [facility] Comment on above: Performed By: #### F T4, PSASC #### [facility] [address] [address] [address] Benito Schwartz Glucose [Mass/Vol] 162 mg/dL Critically high 74-106 [facility] Comment on above: Performed By: #### F T4, PSASC #### [facility] [address] [address] [address] Benito Schwartz Potassium [Moles/Vol] 4.2 mmol/L Normal 3.5-5.1 [facility] Comment on above: Performed By: #### F T4, PSASC #### [facility] [address] [place] [address] Dr. Benito Schwartz Protein [Mass/Vol] 6.5 g/dL Normal 6.4-8.2 [facility] Comment on above: Performed By: #### F T4, PSASC #### [facility] [address] [place] [address] Dr. Benito Schwartz Sodium [Moles/Vol] 141 mmol/L Normal 136-145 [facility] Comment on above: Performed By: #### F T4, PSASC #### [facility] [address] [place] [address] Dr. Benito Schwartz Urea nitrogen [Mass/Vol] 74.0 mg/dL Critically high 7.0-18.0 [facility] Comment on above: Performed By: #### F T4, PSASC #### [facility] [address] [place] [address] Dr. Benito Schwartz Urea nitrogen/Creatinine [Mass ratio] 24.9 mg/mg Normal [facility] Comment on above: Performed By: #### F T4, PSASC #### [facility] [address] [place] [address] Dr. Benito Schwartz TROPONIN, HIGH SENSITIVITYon 03-05-2022 HSTROP 39.6 pg/mL Normal 4.0-76.1 [facility] Comment on above: Result Comment: CUT- OFF POINTS HAVE BEEN ESTABLISHED BASED ON THE FOURTH UNIVERSAL DEFINITIONS OF MYOCARDIAL INFARCTION. THE UPPER REFERENCE LIMIT (URL) OF TROPONIN, DEFINED THE 99TH PERCENTILE OF cTnI DISTRIBUTION IN A REFERENCE POPULATION, HAS BEEN CONFIRMED THE DECISION THRESHOLD FOR HI DIAGNOSIS. Performed By: #### F T4, PSASC #### [facility] [address] [address] [address] Benito Schwartz TSHon 03-05-2022 TSH Qn m[IU]/L Critically low 0.358-3.740 [facility] Comment on above: Performed By: #### F T4 #### [facility] [address] [address] [address] Benito Schwartz TSH RANGE SEE BELOW Normal [facility] Comment on above: Result Comment: <0.3 4 UIU/ml HYPERTHYROID 0.34-5.60 UIU/ml EUTHYROID >5.60 UIU/ml HYPOTHYROID Performed By: #### F T4 #### [facility] [address] [address] [address] Benito Schwartz US THYROIDon 03-04-2022 US [...] MALENA RIOS Date: 2022-03-04 13:56 Normal [facility] - Chemistry and C hemistry - challengeOrdered By: Enrrique Mckeon on 02-22-2022 Natriuretic peptide B (Bld) [Mass/Vol] 251.0 pg/mL High 5-100 [facility] TSH DL <= 0.005 mIU/L QnOrde red By: Enrrique Mckeon on 02-22-2022 TSH Qn m[IU]/L Low 0.45-5.33 [facility] Coding Summaryon 07-08-2021 Coding Summary HTMLBase 64 CmqertnpNLt8bXy+PGhl YWQ+CI8UZCCtJ51vtDVc uS9PW9mENP0QEFTMFKYA PV1RKD5ohCL6MBogV2Zb biAv YwnzqJTzVD27IUw6WAM3 tIinYHofdG9pwDCjQ2a8 VlRaKA83dM27NYhhHRUo YmG8ShJdhftirIHh P5auSrNrcWNjBge+PHRh YmxlIHdpZHRoPScxMDAl SePwqNwsXV7xWo2oVWMy LWNvbGxhcHNlOiBj n1dtOMHbSQxvXM2ukYcy T0OixBE6OPKzt8z5Iz18 dHI+ITTkOKB2rGlnNSkk o110YsMow9kdTCX2 uQFoNUzdLWD1X73vi9V7 CMXbJXTuFSV5mFF1tF4i oHjxpvtiG3NlsPFiDrE6 UHH1vTTrgE9xfXva ocvlqB5eXfg+L20BUP5S XKCQQC8QOar9C3DmAels dHI+TV88RDDxSZ26oXDe yYEwo2jirXp6KwHo GHQfYMT8jOajPTkwm6Hm BRPhS24acDBdh5Z9ACDr wRhswZHqTzLghLR9fQ9i BYeueickv3iqxcyg Gkajb0ugse76bG22A59p RTofJJUeVVL2DRKuQQVw hVbxcp5ekM2nLk0+IDxj j9fjh5hpwWh0ZdKr PUMfovGxwThtKOD3x8Dw Hr08P4WcfPmsx6OaKmx5 tn67xQQss5G0iPX1KOwy PLFedR9nHJvkAjH1 JEWuMxImoU95yMMxMZvr Ng2cfBpkjNlsEZ9jHWHt lfrqMHYhbT6iGKVplJRi hGezIX3lCOJvtuyb g521JwFrMJM0HXDubTBq I6ZhiS3xLyJyDPBlRNFm G3ZhlKIwFCgwR872XEcv OaD5HMEsbsNkS1Hj CXJhtIynAuZ6z8P3Fy5X x4ZiitjnRYI6MNtmISD0 QjYaLhRiDzH5T8TeYhy0 WJXomLinWO0kW0Qt AFFebfjjayegiWH4MSSa HEFliJ79wCQrUEtxQr1s r5L3y247XTObZTEjtR73 Fr8waTmyDUBfuUUZ nC3gzhmzn8flchjzFkFf VVMtMRn6DMw2YMFuwEek ExAhRJU8NdM8VGS2nXOj qF6bnXetrdfsgR2o Oyc+D21wwH2oZLF9HHY4 aswzAQKphoWwML17HL76 C4DiVpaazFAhiRH+PGRp vhNhmGtmUM9uQwPp p6tak8MePMhsK7EbFCWy HZviEec2SFGdTGY3uUI0 sM5gAKAyMSwot2P3rAA8 Z5JlcsSlnl2yl6oi CROvOMogW71clKPfw2G8 EUWbqGH1ZTHoqPtlYuVz dE96Ywk+UJAtqAexy6Qq Lorni0vbx1uspOh7 IjMwJSIgdmFsaWduPSJ0 p9VvBs24X68hWVdzSUHf QZJbBKZfBVSvkVugom1z fJ2tJc3+PGNvbCB3 eSQ0fL2vCJNdUiD0OXjt V752AkGffVRvWtztp7sc p3gwgQv5KzAmQYFrlzEj rCazMHD5p3KpMy96 Y81iKMqzJCWmTXAaBPTr XKHszSccmj6hcN9xSl3+ TU5zm0sepf36tG83jZN+ XUMiZRB5kAnvCDak RVZfbT0aEBkwBwG4TFJo BfPuqO82eTPpFJikSd3z tMshwTkvVV6gJUIlbclq c441DyEst2clVFGq dMGyVAtcANW7R80wc1R2 SXReUMQbIOT6nMV6yS4w bGlnbjogbGVmdDsgdmVy aDjlCExbVSwgC284 IHRvcDsnPlBhdGllbnQg RsEzYXc6K8IeKqg1FLTu dDmxFB5eaBDnSMdhTl5o tHodyUzzGI2pQIGt uamaw623KzJyx5psEDSi vIFqHTwmBMA5S81vs0N9 RTSoEMKbNWQ3gIH3cX1u bGlnbjogbGVmdDsg bcMrrWsmYQlrTBizH892 IHRvcDsnPkJpcnRoIERh nAD5YG61LU04rHWdy0U4 aLN9H3NiXANdpoxu fzyikAD3FJRcAJPacK89 Ws2heModHy3cKLKeWOE3 HDZmoDGdK2YfqN4dShPf KFRaGGIbO4NgpLZf KPabV130MKcfErL5EWXv vwVfG6QyAKJxaXhdKpN1 s6P9Gq3XY9U8JA01RT60 vIJeb6A9iCO0K2Ui NRMdhhxihgzxqTU5KLOx NADxnX02Kw7otUhsEg0c MPQfSAD1CYNqfXHwJ1Sf kV6uCfWcYVMlGOGa I8IuzFVyKTkqT755PFgc YuS4DQVcnfDiK9MaBALw oAyeZjT5o8S9Ql9VLWu2 IU82YN18zDIvp2A2 dFY6I6JmASSiwdbflmzr aUZ6HTDyXTOmaI57Cu4g yGygDv1yCBEhXSY5KGRu dDJuD1PmmT1kPxQz CYZrYWRdV5HzgHKvBQri F106EGetTjU5JYYdlbRm C5IqDIJuyYbjUlK0x0V3 Nb4DSSNxSJ27SKD8 jBH4XH41AW88J1HfSygn dGFibGU+PHRhYmxlIHdp ZHRoPScxMDAlJyBzdHls IJ2kRh9eUHNyEHMj uMytkFZwAnPsi3tqUWGv JRbpJF3yiOwjI9XghJU4 PKFyq8i7Kq61X34bP5Uy dXA+RWNevMY4aGO5 yZ9sVsUxHzK4SLycH665 EzRfzNQkMkxym0igh5gc mTd7ZvL6ZPCkpfIywEda DKJ3q0YgBb53L33o IHdpZHRoPSIxNSUiIHZh aBrwjl9qeR0rIz1+PGNv vMY9uNQ0uQ6mFyTrYlN6 ATnuF027LkUliCLx Ymtov0tjv7rnlGv8GlDu HYByuvYfnUijMQU8z8Fr Pl31I6SquSdul0NxSrn6 ux30fLPba2U9yQV8 U2ExJAHeagstzGBtiMph AN3dNVOoufpqNBExyV4i CFAkW8v6VbKpUfR9GCgw P2WyivX0VVZilBSg FQhwJRM5E97ci6Y6KFBw ILBiPJE6yMG6sG5awUhz bjogbGVmdDsgdmVydGlj IDemLSjtA537HKJw pNjxUQSedV9wBXYehBFx eVziOV4yNIUpyrjmVeEP QGBEBvfeWuNURjk6B6Ba Mpu7RCJklXpvJT6g dXDfHRasVv8ehKldxOqm SE7iOTKimkglJZBieU4o KLCkrHPmhJwgQO4lLLLf lbfra912WnAsCHK7 VCDfgJMnT6WvhA6qRnWl QMSeXDIdW0WgsJJnYNej M122PHkyCiH7IBLecxBr N6TrJTHyfDjrJdN9 b8R0Fj8xFv4mNE6qROYd SQ64ZO47zERtq4R4tUV7 P6TeGTWkpjxvounqgSZ9 PCXrXQBsoT50dNCa UWwpOa1jg2N4x714VAGz PZRmqT53Ev5qrHnyASBo xHBDzI6kgevgz0sxyici ZrIuSDVdKJl5EUx2 GAGwcUniUtZmZFE1JsZ7 STL0mTIeqX0mcCcvgvli fT7eEsx+NzkgWWVhcnM8 T8UaYky6WNVppIfw RA4qoFHyBQtcNr7dpUwv gGduKV2tHSQgopnnKXPi bF8oJDJfjMFhwTljKP3e UHLzqqhlh069IsMa PIW9KKZduUNbG3KtlP4s EpSrRESzFBXdE1CxyZBw YDdqU378JQchAoB8JKGc ofGyY5LuXSYtcFhm SaY9v6S3Su5AIIyCNG00 AM90kIJmh3Y0eZC8X3Ow VXQhlmetgaimqJE5CQYs FTNttX26uGUhQNbb Lc3pu0R8a435AYFqDMXq qV30Oc5reLtgHZForZDZ dY7chbedk4mukklmRhIl VXUyKAm1NYq6MYTg lWvgAnMcEMB2UsZ8KJK1 bGOiaE3nkJdkismjyA0c Oyc+Y3X9C9AgPywcjGM+ IW48BQGePQ15qZGk cQEot6hwkWb4BqFpHKYi THQ5eTmyTAprx7RmZNHj W34lmVHay3C3QTRsfIgi qDUlPcSsuMT1xF4r CBrhgrdfy6bxfvjhKcyc f0qads44vY75K80mFPdx ZHRoPSIzMCUiIHZhbGln zo7qzC9sVn5+PGNv iIM6vNG8rK9yInRrGsK1 SVljK136WmTvmJFmSdmx z4dnq0lhjKz2IxJcPTGd vcMtpVjlFEF4h2Cw Wf09T89xGVyjVPBaPPQd JQVbSRLohLpiyw1vzE0t Ii8+TF7ix9adxt71oI01 dHI+CFDgBWS7iKig TJiqESTasG7pYSumSvV8 ULIqWnTumM20xSNnGBtq Gm8nvHtqlDmiQQ1tAGXo jipdn612BeQxb4ge TCYwvODyGApyTCF7Y35s n7J8HKUvSLNeCZO7pIS8 aV8rpIpzvtixyMTchLls dmVydGljYWwtYWxp W963BDSsaAjcMdZtxNKk K6stleVIKT5mFyrsaDP+ EFQpFKS3hPvmKPynPSKw kV8aXDSiG7t8XxLi LtW0DFkmZ9WgmkB7AKVi oDBxCDZxwXAYnG4mjtsu y3pfszmmAsVvDWQjVFp2 YWh1ZGAzxSetLhBn EQU3YgG3NOQ3rMNmmW6m kWmasawmfP1uPjm+RklO OjwvdGQ+DGYwNUM1mOof SIlmJIPzfM5rZBIe S4j3JbVyClI1ZPjiQ6Oz qlI9JKMlmIEeGFFonWUM kM0endyqn8jhutxyPzUc TYUjEPz2UWk3LLXh cBhoGxJrYJQ3GqO1UVM1 oVCnsG5asQlgkijtbO6t Oyc+TVJOOjwvdGQ+PHRk OIW1vKpqLFpmQLYv rN5wSIEsH4b3LrZhLjZ7 BIhdU4IjtdF3XPKnrCRq SHYygRBGaH7kbzwhy0ll cjogIzAwMDAwMDt0 SZu4FEUhiRwmHfDaALC9 MfX5TIG6vFGgbC9doZvg pscoeA1uNok+DSM1DZB8 IT27XB83P9OdGoay dGFibGU+PHRhYmxlIHdp ZHRoPScxMDAlJyBzdHls CA1cMs8fGLWaLITjrQxq lPHlBeMxq9rsAAAi ZTs (more content not included)... Normal [facility] Provider Orderson 07-05-2021 Provider Orders [id number] #[id number] Normal [facility] Creatinine Lvlon 07-02-2021 eGFR Non AA 29 mL/min/1.73m2 Invalid Interpretation Code [facility] Comment on above: Performed By: #### [id number] #### [facility] (DEFAULT) [address] [place] [address] eGFR AA 35 mL/min/1.73m2 Invalid Interpretation Code [facility] Comment on above: Result Comment: Dry [employer] Operator hilda Kidney disease could be indicated at eGFRs of less than 60 ml/min/1.73m2. Kidney Failure is indicated at less than 15 ml/min/1.73m2 Performed By: #### [id number] #### [facility] (DEFAULT) [address] [place] [id number] Creatinine [Mass/Vol] 2.19 mg/dL High 0.90-1.30 [facility] Comment on above: Performed By: #### 2 [id number] #### [facility] (DEFAULT) [address] [place] [address] Vital Signs Date Time Vital Sign Value Performing Clinician Facility 08-08-2024 10:27-0400 Diastolic blood pressure 80 mm[Hg] Avery Syed MD Work Phone: [facility] 08-08-2024 10:27-0400 Heart rate 72 /min Avery Syed MD Work Phone: [facility] 08-08-2024 10:27-0400 Systolic blood pressure 150 mm[Hg] Avery Syed MD Work Phone: [facility] 08-08-2024 10:25-0400 Body height 180.3 cm Avery Syed MD Work Phone: [facility] 08-08-2024 10:25-0400 Body mass index (BMI) [Ratio] 30.52 kg/m2 Avery Syed MD Work Phone: [facility] 08-08-2024 10:25-0400 Body weight 99.25 kg Avery Syed MD Work Phone: [facility] 07-09-2024 10:33-0400 Diastolic blood pressure 74 mm[Hg] Randall Pancho DO Work Phone: [facility] 07-09-2024 10:33-0400 Heart rate 70 /min Randall Pancho DO Work Phone: [facility] 07-09-2024 10:33-0400 SaO2% (BldA) [Mass fraction] 93 % Randall Pancho DO Work Phone: [facility] 07-09-2024 10:33-0400 Systolic blood pressure 136 mm[Hg] Randall Pancho DO Work Phone: [facility] 04-22-2024 10:44-0400 Body height 180.34 cm DO Arnie Ball Work Phone: [facility] 04-22-2024 10:44-0400 Body mass index (BMI) [Ratio] 30.2 kg/m2 DO Arnie Ball Work Phone: [facility] 04-22-2024 10:44-0400 Body weight 98.14 kg DO Arnie Ball Work Phone: [facility] 04-22-2024 10:44-0400 Diastolic blood pressure 69 mm[Hg] DO Arnie Ball Work Phone: [facility] 04-22-2024 10:44-0400 Heart rate 73 /min DO Arnie Ball Work Phone: [facility] 04-22-2024 10:44-0400 Respiratory rate 12 /min DO Arnie Ball Work Phone: [facility] 04-22-2024 10:44-0400 Systolic blood pressure 135 mm[Hg] DO Arnie Ball Work Phone: [facility] 03-01-2024 11:11-0400 Body height 180.34 cm DO Arnie Ball Work Phone: [facility] 03-01-2024 11:11-0400 Body mass index (BMI) [Ratio] 30.1 kg/m2 DO Arnie Ball Work Phone: [facility] 03-01-2024 11:11-0400 Body temperature 98 [degF] DO Arnie Ball Work Phone: [facility] 03-01-2024 11:11-0400 Body weight 97.97 kg DO Arnie Ball Work Phone: [facility] 03-01-2024 11:11-0400 Diastolic blood pressure 75 mm[Hg] DO Arnie Ball Work Phone: [facility] 03-01-2024 11:11-0400 Heart rate 67 /min DO Arnie Ball Work Phone: [facility] 03-01-2024 11:11-0400 Respiratory rate 18 /min DO Arnie Ball Work Phone: [facility] 03-01-2024 11:11-0400 SaO2% (BldA) [Mass fraction] 95 % DO Arnie Ball Work Phone: [facility] 03-01-2024 11:11-0400 Systolic blood pressure 158 mm[Hg] DO Arnie Ball Work Phone: [facility] 02-08-2024 10:19-0400 Diastolic blood pressure 58 mm[Hg] Avery Syed MD Work Phone: [facility] 02-08-2024 10:19-0400 Heart rate 70 /min Avery Syed MD Work Phone: [facility] 02-08-2024 10:19-0400 Systolic blood pressure 126 mm[Hg] Avery Syed MD Work Phone: [facility] 02-08-2024 10:18-0400 Body mass index (BMI) [Ratio] 29.99 kg/m2 Avery Syed MD Work Phone: [facility] 02-08-2024 10:18-0400 Body weight 97.52 kg Avery Syed MD Work Phone: [facility] 12-18-2023 10:07-0500 Body height 180.34 cm DO Arnie Ball Work Phone: [facility] 12-18-2023 10:07-0500 Body mass index (BMI) [Ratio] 30.2 kg/m2 DO Arnie Ball Work Phone: [facility] 12-18-2023 10:07-0500 Body weight 98.2 kg DO Arnie Ball Work Phone: [facility] 12-18-2023 10:07-0500 Diastolic blood pressure 76 mm[Hg] DO Arnie Ball Work Phone: [facility] 12-18-2023 10:07-0500 Heart rate 72 /min DO Arnie Ball Work Phone: [facility] 12-18-2023 10:07-0500 Respiratory rate 12 /min DO Arnie Ball Work Phone: [facility] 12-18-2023 10:07-0500 Systolic blood pressure 131 mm[Hg] DO Arnie Ball Work Phone: [facility] 09-01-2023 13:51-0500 Body height 180.34 cm DO Arnie Ball Work Phone: [facility] 09-01-2023 13:51-0500 Body temperature 97.7 [degF] DO Arnie Ball Work Phone: [facility] 09-01-2023 13:51-0500 Body weight 98.02 kg DO Arnie Ball Work Phone: [facility] 09-01-2023 13:51-0500 Diastolic blood pressure 79 mm[Hg] DO Arnie Ball Work Phone: [facility] 09-01-2023 13:51-0500 Heart rate 70 /min DO Arnie Ball Work Phone: [facility] 09-01-2023 13:51-0500 Respiratory rate 20 /min DO Arnie Ball Work Phone: [facility] 09-01-2023 13:51-0500 SaO2% (BldA) [Mass fraction] 96 % DO Arnie Ball Work Phone: [facility] 09-01-2023 13:51-0500 Systolic blood pressure 147 mm[Hg] DO Arnie Ball Work Phone: [facility] 08-22-2023 10:00-0500 Body height Arnie Ball Other [facility] [employer] Other 08-22-2023 10:00-0500 Body mass index (BMI) [Ratio] 29.35 kg/m2 Arnie Ball Other [facility] [employer] Other 08-22-2023 10:00-0500 Body weight 98.16 kg Arnie Ball Other [employer] Other 08-22-2023 10:00-0500 Diastolic blood pressure 74 mm[Hg] Arnie Ball Other [employer] Other 08-22-2023 10:00-0500 Respiratory rate 12 /min Arnie Ball Other [employer] Other 08-22-2023 10:00-0500 Systolic blood pressure 135 mm[Hg] Arnie Ball Other [employer] Other 04-20-2023 09:30-0400 Body height Arnie Ball Other [employer] Other 04-20-2023 09:30-0400 Body mass index (BMI) [Ratio] 29.62 kg/m2 Arnie Ball Other [employer] Other 04-20-2023 09:30-0400 Body weight 99.07 kg Arnie Ball Other [employer] Other 04-20-2023 09:30-0400 Diastolic blood pressure 64 mm[Hg] Arnie Ball Other [employer] Other 04-20-2023 09:30-0400 Respiratory rate 12 /min Arnie Ball Other [employer] Other 04-20-2023 09:30-0400 Systolic blood pressure 113 mm[Hg] Arnie Ball Other [employer] Other 12-15-2022 10:00-0500 Body height Arnie Ball Other [employer] Other 12-15-2022 10:00-0500 Body mass index (BMI) [Ratio] 29.81 kg/m2 Arnie Ball Other [employer] Other 12-15-2022 10:00-0500 Body weight 99.7 kg Arnie Ball Other [employer] Other 12-15-2022 10:00-0500 Diastolic blood pressure 70 mm[Hg] Arnie Ball Other [employer] Other 12-15-2022 10:00-0500 Respiratory rate 12 /min Arnie Ball Other [employer] Other 12-15-2022 10:00-0500 Systolic blood pressure 122 mm[Hg] Arnie Ball Other [employer] Other 09-02-2022 14:11-0500 Body weight 98.9 kg DO Arnie Ball Work Phone: [facility] 09-02-2022 14:11-0500 Diastolic blood pressure 72 mm[Hg] DO Arnie Ball Work Phone: [facility] 09-02-2022 14:11-0500 Heart rate 60 /min DO Arnie Ball Work Phone: [facility] 09-02-2022 14:11-0500 Respiratory rate 20 /min DO Arnie Ball Work Phone: [facility] 09-02-2022 14:11-0500 SaO2% (BldA) [Mass fraction] 96 % DO Arnie Ball Work Phone: [facility] 09-02-2022 14:11-0500 Systolic blood pressure 153 mm[Hg] DO Arnie Ball Work Phone: [facility] 07-21-2022 10:13-0400 Diastolic blood pressure 64 mm[Hg] DO Arnie Ball Work Phone: [facility] 07-21-2022 10:13-0400 Heart rate 60 /min DO Arnie Ball Work Phone: [facility] 07-21-2022 10:13-0400 Respiratory rate 16 /min DO Arnie Ball Work Phone: [facility] 07-21-2022 10:13-0400 SaO2% (BldA) [Mass fraction] 95 % DO Arnie Ball Work Phone: [facility] 07-21-2022 10:13-0400 Systolic blood pressure 135 mm[Hg] DO Arnie Ball Work Phone: [facility] 07-21-2022 08:10-0400 Body height 180.34 cm DO Arnie Ball Work Phone: [facility] 07-21-2022 08:10-0400 Body temperature 98.2 [degF] DO Arnie Ball Work Phone: [facility] 07-21-2022 08:10-0400 Body weight 90.71 kg DO Arnie Ball Work Phone: [facility] 06-17-2022 10:25-0400 Body temperature 98.2 [degF] DO Arnie Ball Work Phone: [facility] 06-17-2022 10:25-0400 Diastolic blood pressure 58 mm[Hg] DO Arnie Ball Work Phone: [facility] 06-17-2022 10:25-0400 Heart rate 62 /min DO Arnie Ball Work Phone: [facility] 06-17-2022 10:25-0400 Respiratory rate 18 /min DO Arnie Ball Work Phone: [facility] 06-17-2022 10:25-0400 SaO2% (BldA) [Mass fraction] 98 % DO Arnie Ball Work Phone: [facility] 06-17-2022 10:25-0400 Systolic blood pressure 124 mm[Hg] DO Arnie Ball Work Phone: [facility] 06-03-2022 09:55-0400 Body height 180.34 cm DO Arnie Ball Work Phone: [facility] 06-03-2022 09:55-0400 Body weight 92.85 kg DO Arnie Ball Work Phone: [facility] Encounters Encounter Date Encounter Type Care Provider Facility Start: 12-04-2024 End: 12-04-2024 Bamboo flowsheet Marilin Goyal Danna CCC-A Work Phone: [facility] Start: 12-04-2024 End: 12-04-2024 Bamboo flowsheet Marilin Goyal Danna CCC-A Work Phone: [facility] Start: 12-04-2024 End: 12-04-2024 Clinical Support Marilin Clay CCC-A Work Phone: [facility] Comment on above: Sensorineural hearin g loss (SNHL) of both ears (Primary Dx) Start: 11-20-2024 ambulatory [facility] Start: 11-13-2024 End: 11-13-[facility]24 [facility] Start: 10-29-2024 ambulatory [facility] Start: 10-17-2024 ambulatory [facility] Start: 10-17-2024 End: 10-17-2024 ambulatory [facility] Start: 10-03-2024 ambulatory [facility] Start: 09-30-2024 ambulatory [facility] Start: 09-17-2024 ambulatory [facility] Start: 09-10-2024 End: 09-10-2024 ambulatory [facility] Start: 09-02-2024 ambulatory [facility] Start: 08-22-2024 End: 08-22-2024 ambulatory Ramesh Rascon Facility:[facility] Start: 08-21-2024 End: 08-21-2024 Bamboo flowsheet Marilin Clay [facility] Work Phone: [facility] Start: 08-21-2024 [...] disease (CMS-HCC) (Primary Dx) Start: 08-01-2024 ambulatory [facility] Start: 07-30-2024 ambulatory MARIUSZ [facility] Start: 07-24-2024 End: 07-24-2024 ambulatory ENRRIQUE ARCOSCKER [facility] Start: 07-22-2024 ambulatory [facility] Start: 07-22-2024 Encounter for preprocedural cardiovascular examination [facility] Start: 07-17-2024 ambulatory [facility] Start: 07-09-2024 End: 07-09-2024 Bamboo flowsheet Randall Pancho DO Work Phone: [facility] Start: 07-09-2024 End: 07-09-2024 Bamboo flowsheet Randall Deleon DO Work Phone: [facility] Start: 07-09-2024 End: 07-09-2024 Office outpatient visit 25 minutes Randall Deleon DO Work Phone: [facility] Comment on above: MOLINA (obstructive sle ep apnea) (Primary Dx); Hypersomnia; Primary insomnia; Snoring; Hypoxia Start: 07-09-2024 End: 07-09-2024 ambulatory RANDALL DELEON Not Available Start: 06-26-2024 ambulatory [facility] Start: 2024 ambulatory GREG ALEJANDRE [facility] Start: 04-29-2024 End: 04-29-2024 Telephone encounter Scanning Provider External [facility] Start: 04-22-2024 End: 04-22-2024 ambulatory DO Arnie Linda Work Phone: [facility] Work Phone: Start: 04-22-2024 End: 04-22-2024 Patient encounter procedure DO Arnie Linda Work Phone: [facility] Work Phone: Start: 04-11-2024 ambulatory [facility] Start: 04-09-2024 ambulatory MARIUSZ [facility] Start: 04-02-2024 ambulatory GREG ALEJANDRE [facility] Start: 03-29-2024 End: 03-29-2024 ambulatory DAWN ORTIZ [facility] Start: 03-05-2024 End: 03-05-2024 ambulatory MARIUSZ [facility] Start: 03-01-2024 End: 03-01-2024 ambulatory DO Arnie Linda Work Phone: [facility] Work Phone: Start: 03-01-2024 End: 03-01-2024 Patient encounter procedure DO Arnie Linda Work Phone: [facility] Work Phone: Start: 03-01-2024 Registered Recurring DO Jeremi in Ball Work Phone: [facility] Work Phone: Start: 02-21-2024 End: 02-21-2024 ambulatory MARILIN CLAY Not Available Start: 02-08-2024 End: 02-08-2024 Office outpatient visit 25 minutes Avery Syed MD Work Phone: [facility] Comment on above: Stage 4 chronic kidn ey disease (CMS-HCC) (Primary Dx) Start: 02-01-2024 Non-patient / Non-visit DO Aguilar Linda Work Phone: [facility] Work Phone: Start: 01-26-2024 End: 01-26-2024 Telephone encounter Ketan Osullivan CMA [facility] Start: 12-19-2023 Non-patient / Non-visit DO Aguilar Linda Work Phone: [facility] Work Phone: Start: 12-18-2023 End: 12-18-2023 ambulatory Arnie Linda Other [employer] Other Start: 12-18-2023 Telephone encounter Arnie Linda [facility] Start: 12-18-2023 End: 12-18-2023 Patient encounter procedure DO Arnie Ball Work Phone: [facility] Work Phone: Start: 09-29-2023 End: 09-29-2023 ambulatory Arnie Ball Other [employer] Other Start: 09-29-2023 Telephone encounter Arnie Linda [facility] Start: 09-01-2023 End: 09-01-2023 Registered Recurring DO Arnie Ball Work Phone: [facility] Work Phone: Start: 09-01-2023 End: 09-01-2023 ambulatory DO Arnie Maddi Work Phone: [facility] Work Phone: Start: 08-27-2023 End: 08-27-2023 ambulatory Arnie Ball Other [employer] Other Start: 08-27-2023 Telephone encounter Arnie Linda [facility] Start: 08-22-2023 End: 08-22-2023 ambulatory Arnie Ball Other [employer] Other Start: 08-22-2023 Office outpatient vi sit 25 minutes Arnie Maddi [facility] Start: 07-03-2023 End: 07-03-2023 ambulatory Arnie Ball Other [employer] Other Start: 07-03-2023 Telephone encounter Arnie Linda [facility] Start: 07-01-2023 End: 07-01-2023 ambulatory Arnie Ball Other [employer] Other Start: 07-01-2023 Telephone encounter Arnie Linda [facility] Start: 06-22-2023 End: 06-22-2023 ambulatory Arnie Linda Other [employer] Other Start: 06-22-2023 Telephone encounter Arnie Linda [facility] Start: 06-12-2023 End: 06-12-2023 ambulatory Arnie Linda Other [employer] Other Start: 06-12-2023 Telephone encounter Arnie Linda [facility] Start: 04-26-2023 End: 04-26-2023 ambulatory Arnie Linda Other [employer] Other Start: 04-26-2023 Telephone encounter Arnie Linda [facility] Start: 04-20-2023 End: 04-20-2023 ambulatory Arnie Linda Other [employer] Other Start: 04-20-2023 Office outpatient vi sit 25 minutes Arnie Linda [facility] Start: 03-14-2023 End: 03-14-2023 ambulatory Arnie Linda Other [employer] Other Start: 03-14-2023 Telephone encounter Arnie Linda [facility] Start: 02-28-2023 End: 03-01-[address] DOCTOR EDWARDS Facility: Start: 02-15-2023 Telephone encounter Arnie Linda [facility] Start: 02-15-2023 End: 02-16-[address] DOCTOR EDWARDS [employer] Other Start: 02-14-2023 End: 02-14-2023 ambulatory Arnie Linda Other [employer] Other Start: 02-14-2023 Telephone encounter Arnie Linda [facility] Start: 01-11-2023 End: 01-11-2023 ambulatory Arnie Linda Other [employer] Other Start: 01-11-2023 Office outpatient vi sit 15 minutes Arnie Maddi [facility] Start: 01-02-2023 End: 01-03-2023 ambulatory AVERY SYED MD Facility:[facility] Start: 12-15-2022 End: 12-15-2022 ambulatory Arnie Linda Other [employer] Other Start: 12-15-2022 Patient encounter procedure Arnie Linda [facility] Start: 11-16-2022 End: 11-17-[address] ARNIE LINDA Facility:[facility] Start: 11-14-2022 End: 11-14-2022 ambulatory Arnie Linda Other [employer] Other Start: 11-14-2022 Telephone encounter Arnie Linda [facility] Start: 10-03-2022 End: 10-04-[address] ARNIE LINDA Facility:[facility] Start: 09-22-2022 End: 09-23-[address] DOCTOR EDWARDS Facility:[facility] Start: 09-09-2022 End: 09-10-[address] DOCTOR EDWARDS Facility:[facility] Start: 09-02-2022 End: 09-02-2022 ambulatory DO Arnie Linda Work Phone: [facility] Work Phone: Start: 09-02-2022 End: 09-02-2022 Registered Recurring DO Arnie Linda Work Phone: [facility] Start: 08-30-2022 End: 08-31-[address] ARNIE LINDA Facility:[facility] Start: 07-21-2022 End: 07-21-2022 Admission to same day surgery center DO Arnie Linda Work Phone: [facility] Start: 07-21-2022 End: 07-21-2022 ambulatory DO Arnie Linda Work Phone: [facility] Work Phone: Start: 07-20-2022 End: 07-21-[address] ARNIE LINDA Facility:[facility] Start: 07-19-2022 End: 07-19-2022 ambulatory DO Arnie Linda Work Phone: [facility] Work Phone: Start: 07-19-2022 End: 07-19-2022 Patient encounter procedure DO Arnie Maddi Work Phone: [facility] Start: 07-07-[address] DAWN Rodgers ility:[facility] Start: 06-21-2022 Adult health examination Gume Linda Other [employer] Other Start: 06-17-2022 Registered Recurring DO Jeremi in Ball Work Phone: [facility] Start: 06-03-2022 End: 06-03-2022 Registered Recurring DO Arnie Linda Work Phone: [facility] Start: 05-31-2022 End: 05-31-2022 Patient encounter procedure DO Arnie Linda Work Phone: [facility] [place] Start: 05-12-2022 End: 05-13-2022 ambulatory AVERY SYED MD Facility:[facility] Start: 05-10-2022 End: 05-11-2022 ambulatory FERMIN SANCHEZ Facility:[facility] Start: 04-26-2022 End: 04-27-[address] DOCTOR EDWARDS Facility:[facility] Start: 04-11-2022 End: 07-07-[address] ARNIE LINDA Facility:[facility] Start: 04-08-2022 End: 04-09-[address] ARNIE LINDA Facility:[facility] Start: 03-30-2022 End: 04-02-2022 Evaluation and management of inpatient GILMER SALAZAR Facility:[facility] Start: 03-25-2022 End: 03-26-2022 ambulatory ENRRIQUE MCKEON Facility:[facility] Start: 03-11-2022 ambulatory ENRRIQUE MCKEON Facility :[facility] Start: 03-06-2022 End: 03-07-2022 Evaluation and management of inpatient DR RUPINDER GRIGSBY . Facility:[facility] Start: 03-04-2022 End: 03-05-[address] ARNIE LINDA Facility:[facility] Start: 08-17-2021 End: 08-17-2021 Pre-procedure evaluation check Arnie Linda Other [employer] Other Start: 08-15-2021 Bradycardia DO Arnie Ba ll Work Phone: [facility] Procedures Date Procedure Procedure Detail Performing Clinician [...] on above: Result Comment: PERF ORMED BY: [facility] [address] [place] [address] PATHOLOGIST ENTERTAINMENT DIRECTOR TRU UMANZOR M.D. Performed By: #### C EA, CBC, FE and TIBC, CMP, TONY ####[id number] [facility] Start: 02-28-2023 CT of abdomen and pe lvis without contrast DO Arnie Ball Work Phone: Start: 02-28-2023 CT of chest without contrast DO Arnie Ball Work Phone: Start: 01-02-2023 PSA screening FERMIN B OES Comment on above: Performed By: #### F T4, PSASC #### [facility] [address] [place] [address] Dr. Benito Schwartz Start: 08-31-2022 CT of abdomen and pe lvis without contrast DO Arnie Ball Work Phone: Start: 08-31-2022 CT of chest without contrast DO Arnie Ball Work Phone: Start: 07-21-2022 Colonoscopy DO Benjami n Ball Work Phone: Start: 05-31-2022 CT of abdomen and pe lvis without contrast DO Arnie Ball Work Phone: Start: 05-31-2022 CT of chest without contrast DO Arnie [employer] Work Phone: Start: 02-22-2022 Computed tomography of abdomen and pelvis with contrast DO Arnie [employer] Work Phone: Start: 02-22-2022 CT of thorax with contrast DO Arnie Linda Work Phone: Start: 05-19-2018 Laboratory test resu lt abnormal Arnie Linda Other Start: 04-25-2017 Screening for malign ant neoplasm of colon Arnie Linda Other Start: 08-24-2016 Pre-surgery evaluation Arnie Linda Other Start: 08-24-2016 Preoperative cardiov ascular examination Arnie Linda Other Start: 01-01-2015 Screening for malign ant neoplasm of prostate [employer] [employer] Other Depression screening Benjmaureen n [employer] Other SARS Antigen (LFIA) DO Gume grady Linda Work Phone: Screening for malign ant neoplasm of prostate [employer] Other Plan of Treatment Date Care Activity Detail Author Start: 03-05-2025 End: 03-05-2025 Clinical Support 03/05/2025 1:00 PM EDT Clinical Support [facility] [address] [place] [address] Marilin Clay, [facility] [address] [facility] [place] [address] [facility] Start: 02-07-2025 Adult BMI Screening Adult BMI Screen ing [facility]achno Start: 02-06-2025 End: 08-08-2025 Basic metabolic 2000 panel - Serum or Plasma Basic Metabolic Panel Lab Routine Stage 4 chronic kidney disease (CMS-HCC) Expected: 02/06/2025 (Approximate), Expires: 08/08/2025 [facility] Work Phone: Comment on above: Expected: 02/06/2025 (Approximate), Expires: 08/08/2025 Start: 02-06-2025 End: 08-08-2025 CBC panel - Blood by Automated count CBC without diff Lab Routine Stage 4 chronic kidney disease ([facility] Expected: 02/06/2025 (Approximate), Expires: 08/08/2025 [facility] [employer] [facility] Comment on above: Expected: 02/06/2025 (Approximate), Expires: 08/08/2025 Start: 02-06-2025 End: 08-08-2025 Magnesium [Mass/volume] in Serum or Plasma Magnesium Lab Routine Stage 4 chronic kidney disease ([facility] Expected: 02/06/2025 (Approximate), Expires: 08/08/2025 [facility] Comment on above: Expected: 02/06/2025 (Approximate), Expires: 08/08/2025 Start: 02-06-2025 End: 08-08-2025 Parathyroid Hormone, intact Parathyroid Hormone, intact Lab Routine Stage 4 chronic kidney disease ([facility] Expected: 02/06/2025 (Approximate), Expires: [facility] Comment on above: Expected: 02/06/2025 (Approximate), Expires: 08/08/2025 Start: 02-06-2025 End: 08-08-2025 Phosphate [Mass/volume] in Serum or Plasma Phosphorus Lab Routine Stage 4 chronic kidney disease ([facility] Expected: 02/06/2025 (Approximate), Expires: 08/08/2025 [facility] Comment on above: Expected: 02/06/2025 (Approximate), Expires: 08/08/2025 Start: 02-06-2025 End: 08-08-2025 Protein creat ratio Protein creat ratio Lab Routine Stage 4 chronic kidney disease ([facility] Expected: 02/06/2025 (Approximate), Expires: 08/08/2025 [facility] Comment on above: Expected: 02/06/2025 (Approximate), Expires: 08/08/2025 Start: 12-04-2024 End: 12-04-2024 Clinical Support 12/04/2024 1:00 PM EST Clinical Support [facility] [address] [place] [address] Marilin Clay, [facility] [address] [place] [address] GIGI MYRICK AUD Start: 10-05-2024 Adult BMI Screening Adult BMI Screen ing [facility] Start: 08-21-2024 End: 08-21-2024 Clinical Support [facility] Comment on above: Arrived Start: 08-15-2024 End: 08-08-2025 Protein creat ratio Protein creat ratio Lab Routine Stage 4 chronic kidney disease ([facility]) Expected: 08/15/2024 (Approximate), Expires: 08/08/2025 [facility] Comment on above: Expected: 08/15/2024 (Approximate), Expires: 08/08/2025 Start: 08-08-2024 End: 08-08-2024 Patient encounter procedure 08/08/2024 10:30 AM EDT Office Visit N [facility] [address] [place] [id number] Avery Syed MD [address] [facility] [[email or web address]] [address] [place] [address] [facility] Start: 07-09-2024 End: 07-09-2024 Patient encounter procedure 07/09/2024 10:30 AM EDT Office Visit [facility] [address] [place] [id number] Randall Deleon DO [address] [place] [address] [address] [address] Comment on above: Arrived Start: 06-16-2024 Influenza vaccination N [facility] Start: 06-02-2024 End: 01-31-2025 Basic metabolic 2000 panel - Serum or Plasma Basic Metabolic Panel Lab Routine Stage 4 chronic kidney disease ([facility]) Expected: 06/02/2024, Expires: 01/31/[address] [facility] Work Phone: Comment on above: Expected: 06/02/2024 , Expires: 01/31/2025 Start: 06-02-2024 End: 01-31-2025 CBC panel - Blood by Automated count CBC without diff Lab Routine Stage 4 chronic kidney disease ([facility]) Expected: 06/02/2024, Expires: 01/31/2025 Arachno Comment on above: Expected: 06/02/2024 , Expires: 01/31/2025 Start: 06-02-2024 End: 01-31-2025 Magnesium [Mass/volume] in Serum or Plasma Magnesium Lab Routine Stage 4 chronic kidney disease ([facility]) Expected: 06/02/2024, Expires: 01/31/[facility]25 [facility] on above: Expected: 06/02/2024 , Expires: 01/31/2025 Start: 06-02-2024 End: 01-31-2025 Parathyroid Hormone, intact Parathyroid Hormone, intact Lab Routine Stage 4 chronic kidney disease ([facility]) Expected: 06/02/2024, Expires: 01/31/2025 [facility] Comment on above: Expected: 06/02/2024 , Expires: 01/31/2025 Start: 06-02-2024 End: 01-31-2025 Phosphate [Mass/volume] in Serum or Plasma Phosphorus Lab Routine Stage 4 chronic kidney disease ([facility]) Expected: 06/02/2024, Expires: 01/31/2025 Arachno Comment on above: Expected: 06/02/2024 , Expires: 01/31/2025 Start: 06-02-2024 End: 01-31-2025 Protein creat ratio Protein creat ratio Lab Routine Stage 4 chronic kidney disease ([facility]) Expected: 06/02/2024, Expires: 01/31/2025 Arachno Comment on above: Expected: 06/02/2024 , Expires: 01/31/2025 Start: 02-08-2024 End: 02-08-2024 Patient encounter procedure 02/08/2024 10:30 AM EDT Office Visit N [facility] [address] [place] [address] Avery Syed MD [address] [place] [address] [facility] Start: 11-20-2023 COVID-19 Vaccine ( season) COVID-19 Vaccine ( season) [facility] Start: 07-21-2022 [facility] Start: 06-17-2022 Registered Recurring Colon cancer [facility] Start: 06-17-2022 [facility] Start: 06-10-2022 [facility] Start: 02-22-2022 CT abdomen pelvis w con CT abd omen pelvis w con [facility] Start: 02-22-2022 CT chest w con CT [facility] Start: 07-16-2014 Pneumococcal Vaccine : 65+ Years (2 of 2 - PPSV23 or PCV20) Pneumococcal Vaccine: 65+ Years (2 of 2 - PPSV23 or PCV20) [facility] Start: 2007 Fall Risk Screening Fall Risk Screen ing [facility] Start: 1992 Administration of varicella zoster vaccine Zoster (Shingles) Vaccine (1 of 2) [facility] Start: 1961 DTaP,Tdap and Td Vac cines (1 - Tdap) DTaP,Tdap and Td Vaccines (1 - Tdap) [facility] Start: 1954 Depression Screening Depression Scre ening [facility] Start: 1954 Tobacco Screening Tobacco Screening [facility] Start: 1942 Medicare Annual Well ness Visit Medicare Annual Wellness Visit [facility] Carcinoembryonic Ag [Mass/volume] in Serum or Plasma [facility] Work Phone: Carcinoembryonic Ag [Mass/volume] in Serum or Plasma [facility] Carcinoembryonic Ag [Mass/volume] in Serum or Plasma [facility] Comprehensive metabo lic 1999 panel - Serum or Plasma [facility] Work Phone: Comprehensive metabo lic 1999 panel - Serum or Plasma [facility] Comprehensive metabo lic 1999 panel - Serum or Plasma [facility] Comprehensive metabo lic 1999 panel - Serum or Plasma [facility] Comprehensive metabo lic 1999 panel - Serum or Plasma [facility] Comprehensive metabo lic 1999 panel - Serum or Plasma [facility] CT Abdomen and Pelvi s W contrast IV [facility] Work Phone: CT Abdomen and Pelvi s W contrast IV [facility] CT Abdomen and Pelvi s W contrast IV [facility] CT Abdomen and Pelvi s W contrast IV [facility] CT Abdomen and Pelvi s WO contrast [facility] Work Phone: CT Abdomen and Pelvi s WO contrast [facility] CT Abdomen and Pelvi s WO contrast [facility] CT Chest W contrast IV [facility] Work Phone: CT Chest W contrast IV [facility] CT Chest W contrast IV [facility] CT Chest W contrast [facility] Chest WO [facility] Work Phone: CT Chest WO contrast [facility] CT Chest WO contrast [facility] Erythropoietin (EPO) [Units/volume] in Serum or Plasma [facility] Ferritin [Mass/volum e] in Serum or Plasma [facility] Patient Education Hemorrhoids [place] Polyps [facility] Work Phone: End: 01-31-2025 Urinalysis Urinalysis Lab Routine Stage 4 chronic kidney disease ([facility]) 1 Occurrences starting 02/08/2024 until 01/31/2025 Arachno Comment on above: 1 Occurrences starti ng 02/08/2024 until 01/31/2025 End: 08-08-2025 Urinalysis Urinalysis Lab Routine Stage 4 chronic kidney disease ([facility]) 1 Occurrences starting 08/08/2024 until 08/08/2025 [facility] Comment on above: 1 Occurrences starti ng 08/08/2024 until 08/08/2025 [facility] Immunizations Immunization Date Immunization Notes Care Provider Law griggs 07-15-2024 influenza virus vaccine, unspecified formulation Marilin Sagastumeill [facility] Work Phone: [facility] 07-11-2023 influenza virus vaccine, unspecified formulation Ketan Osullivan [facility] 07-10-2022 COVID-19 Pfizer (bivalent) Arnie Linda Other [facility] 07-10-2022 COVID-19 Pfizer (Pediatric) Arnie Linda Other [facility] 07-04-2022 influenza virus vaccine, split virus (incl. purified surface antigen) Arnie Linda Other [facility] [employer] Other 07-04-2022 influenza virus vaccine, unspecified formulation DO Arnie Linda Work Phone: [facility] 07-04-2022 influenza, high dose seasonal, preservative-free Arnie Linda Other [facility] [employer] Other 02-07-2022 COVID-19 Pfizer Arnie pedroza Other [facility] 02-07-2022 COVID-19 Vaccine Pfi zer - Documentation Purposes Only Arnie Linda Other [facility] 07-28-2021 influenza virus vaccine, split virus (incl. purified surface antigen) Arnie Linda Other [employer] Other 07-28-2021 influenza virus vaccine, unspecified formulation DO Arnie Linda Work Phone: [facility] 07-15-2021 COVID-19 mRNA, Comirnaty (Pfizer) DO Arnie Linda Work Phone: [facility] 12-03-2020 COVID-19 mRNA, Comirnaty (Pfizer) DO [place] Work Phone: [facility] 11-12-2020 COVID-19 mRNA, Comirnaty (Pfizer) DO [place] Work Phone: [facility] 06-30-2020 influenza virus vaccine, split virus (incl. purified surface antigen) [employer] Other [facility] [employer] Other 06-30-2020 influenza virus vaccine, unspecified formulation DO [place] Work Phone: [facility] 07-19-2019 influenza virus vaccine, split virus (incl. purified surface antigen) [employer] Other [facility] [employer] Other 07-19-2019 influenza virus vaccine, unspecified formulation DO [place] Work Phone: [facility] 07-17-2018 influenza virus vaccine, split virus (incl. purified surface antigen) [employer] Other [employer] Other 07-17-2018 influenza virus vaccine, unspecified formulation DO [place] Work Phone: [facility] 12-25-2017 diphtheria, tetanus toxoids and acellular pertussis vaccine, unspecified formulation [place] Other [facility] 07-24-2017 influenza virus vaccine, split virus (incl. purified surface antigen) [employer] Other [facility] [employer] Other 07-24-2017 influenza virus vaccine, unspecified formulation DO [place] Work Phone: [facility] 07-12-2016 influenza virus vaccine, split virus (incl. purified surface antigen) [employer] Other [place] [employer] Other 07-12-2016 influenza virus vaccine, unspecified formulation DO [place] Work Phone: [facility] 05-26-2016 pneumococcal Conjuga te, unspecified formulation; Translations: [Need for prophylactic vaccination against Streptococcus pneumoniae (pneumococcus)] Arnie Linda Other [facility] [employer] Other 05-26-2016 pneumococcal conjuga te vaccine, 13 valent Arnie Linda Other [facility] 07-08-2015 influenza virus vaccine, split virus (incl. purified surface antigen) Arnie Linda Other [employer] Other 07-08-2015 influenza virus vaccine, unspecified formulation DO Arnie Linda Work Phone: [facility] 08-02-2013 tetanus and diphther ia toxoids, adsorbed, preservative free, for adult use (5 Lf of tetanus toxoid and 2 Lf of diphtheria toxoid) Arnie Linda Other [facility] 08-02-2013 pneumococcal polysaccharide vaccine, 23 valent Arnie Linda Other [facility] 07-16-2013 pneumococcal conjuga te vaccine, 13 valent Randall Deleon DO Work Phone: [facility] 06-27-2012 tetanus and diphther ia toxoids, adsorbed, preservative free, for adult use (5 Lf of tetanus toxoid and 2 Lf of diphtheria toxoid) Arnie Linda Other [facility] Payers Date Payer Category Payer Unknown AARP AARP [id number] 2022-Present [address] [place] [address] [id number] 2021 Managed Care Other (unspecified) [facility] [id number] 2021 Private Health Insurance [id number] .[id number] 2007 Medicare [id number] 1959 Medicare [id number] 1959 Self-pay [id number] 1959 Unknown [id number] 1942 Unknown [id number] 2.16.840.1.816787.3.579.2 .647 1942 Unknown [id number] 2.16.840.1.063784.3.579.2 .593 1942 Unknown [id number] 2.16.840.1.611324.3.579.2 .593 1942 Unknown [id number] 2.16.840.1.973169.3.579.2 .593 1942 Unknown [id number] 2.16.840.1.756663.3.579.2 .593 1942 Unknown [id number] 2.16.840.1.381462.3.579.2 .593 1942 Unknown [id number] 2.16.840.1.635169.3.579.2 .593 1942 Unknown [id number] 2.16.840.1.956564.3.579.2 .593 1942 Unknown [id number] 2.16.840.1.590785.3.579.2 .593 1942 Unknown [id number] 2.16.840.1.495350.3.579.2 .593 1942 Unknown [id number] 2.16.840.1.462373.3.579.2 .593 1942 Unknown [id number] 2.16.840.1.413295.3.579.2 .593 1942 Unknown [id number] 2.16.840.1.728787.3.579.2 .593 1942 Unknown [id number] 2.16.840.1.971748.3.579.2 .593 1942 Unknown [id number] 2.16.840.1.681127.3.579.2 .593 1942 Unknown [id number] 2.16.840.1.091122.3.579.2 .593 1942 Unknown [id number] 2.16.840.1.321017.3.579.2 .593 1942 Unknown [id number] 2.16.840.1.890525.3.579.2 .593 1942 Unknown [id number] 2.16.840.1.922437.3.579.2 .593 1942 Unknown [id number] 2.16.840.1.130487.3.579.2 .593 1942 Unknown [id number] 2.16.840.1.873022.3.579.2 .593 1942 Unknown [id number] 2.16.840.1.272471.3.579.2 .593 1942 Unknown [id number] 2.16.840.1.799354.3.579.2 .1259 1942 Unknown [id number] 2.16.840.1.186067.3.579.2 .1259 1942 Unknown [id number] 2.16.840.1.459120.3.579.2 .1259 1942 Unknown [id number] 2.16.840.1.949901.3.579.2 .1259 Unknown [id number] 2.16.840.1.966111.3.579.2 .593 Unknown [id number] 2.16.840.1.560313.3.579.2 .531 Unknown [id number] 2.16.840.1.391654.3.579.2 .531 Social History Date Type Detail Facility Start: 06-03-2022 End: 07-09-2024 Tobacco smoking status NHIS Ex-smoker (finding) [facility] Start: 1940 Sex Assigned At Male [facility] Start: 07-08-2024 End: 07-09-2024 Sex Assigned At [facility] [employer] Other History of tobacco use Current smoker [facility] History of tobacco use Cigarette Smoker N [facility] Start: 06-01-2023 End: 07-09-2024 Tobacco use and exposure Smokeless tobacco non-user [facility] Start: 07-08-2024 End: 07-09-2024 Alcoholic beverage intake Current drinker of alcohol (finding) [facility] Start: 07-08-2024 End: 07-09-2024 History of Social function [facility] Frequency of Alcohol Consumption Not on file [facility] How many standard drinks containing alcohol do you have on a typical day? [address] [facility] How often do you hav e 6 or more drinks on 1 occasion? Never [facility] Start: 07-08-2024 Alcohol Comment caffeine: none [facility] Start: 1940 Sex assigned at Not on file [facility] Start: 08-18-2023 Gender identity Identifies as male gender (finding) [facility] Start: 10-05-2023 End: 08-08-2024 Alcoholic beverage intake Ex-drinker (finding) [facility] Start: 05-21-2015 Sex Male (finding) [facility] Medical Equipment Procedure Code Equipment Code Equipment Origin al Text Equipment Identifier Dates Blood Sugar Diagnostic (Contour Next Test Strips) strip Start: 12-15-2023 Blood Sugar Diagnostic (Contour Next Test Strips) strip Start: 12-15-2023 Goals Date Patient Goal Desired Activity /State Clinical Notes 08-31-2021 to 12-04-2024 MANUELA Riddle - 12/04/2024 1:00 PM MANUELA Crawford - 08/21/2024 1:00 PM Pietro Syed MD - 08/08/2024 10:30 AM EDTRandall Deleon DO - 07/09/2024 10:30 AM EDT Note Date & Type Note Facility 12-04-2024 History of Present illness Narrative Pt picked up supplies documented in this encounter [facility] 11-13-2024 Note Cardiovascular Medic [facility] SUBJECTIVE Chief Complaint Patient presents with Atrial Fibrillation Atrial Flutter Nas Ren is a 84 y.o. male here for follow-up. 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 11/13/2024 Since last seen he underwent a cardioversion. EKG today shows AV paced rhythm. He has been feeling well. No further issues with dizziness. Leg edema has been mild and stable. Denies c/o CP, dyspnea, orthopnea, PND, dizziness/LH, palpitations, syncope. Patient Active Problem List Diagnosis Stage 3 [...] Type 2 diabetes mellitus with hyperglycemia (CMS/HCC) Hypersomnia Primary insomnia Past Medical History: Diagnosis Date Arrhythmia CHF (congestive heart failure) (CMS/HCC) Chronic kidney disease Family History Problem Relation Name Age of Onset Diabetes Mother Heart disease Father Glaucoma Brother Diabetes Maternal Grandmother Clotting disorder Other Social History Tobacco Use Smoking status: Former Current packs/day: 0.00 Types: Cigarettes Quit date: 1981 Years since quittin.1 Smokeless tobacco: Never Substance Use Topics Alcohol use: Yes Comment: OCCASIONAL Drug use: Never Allergies Allergen Reactions Mvayyjj-Yad-Qkb Reductase Inhibitors Tramadol ROS Cardiovascular: Positive for leg swelling. Hematologic/Lymphatic: Bruises/bleeds easily. All other systems reviewed and are negative. OBJECTIVE Visit Vitals BP 108/62 (BP Location: Right arm, Patient Position: Sitting) Pulse 67 Ht 1.803 m (5' 11 ) Wt 93.9 kg (207 lb) SpO2 95% BMI 28.87 kg/m??? Smoking Status Former BSA 2.17 m??? Medications: Current Outpatient Medications: allopurinol (Zyloprim) 100 mg tablet, Take 1 tablet by mouth in the morning., Disp: , Rfl: amiodarone (Pacerone) 200 mg tablet, Take 1 tablet (200 mg) by mouth in the morning. DO NOT START BEFORE SEPTEMBER 25 2024, Disp: 90 tablet, Rfl: 3 amLODIPine (Norvasc) 10 mg tablet, TAKE 1 TABLET BY MOUTH DAILY, Disp: 90 tablet, Rfl: 3 cholecalciferol, vitamin D3, 100 mcg (4,000 unit) capsule, Take 1 capsule every day by oral route., Disp: , Rfl: Eliquis 2.5 mg tablet, TAKE 1 TABLET BY MOUTH IN THE MORNING AND AT BEDTIME, Disp: 180 tablet, Rfl: 3 ezetimibe (Zetia) 10 mg tablet, TAKE 1 [...] TIMES DAILY, Disp: 270 tablet, Rfl: 3 losartan (Cozaar) 25 mg tablet, Take 25 mg by mouth in the morning., Disp: , Rfl: methIMAzole (Tapazole) 5 mg tablet, Take 5 mg by mouth 2 (two) times a week., Disp: , Rfl: metoprolol succinate XL (Toprol-XL) 100 mg 24 hr tablet, Take 1 tablet (100 mg) by mouth once daily as directed. Do not crush or chew., Disp: 90 tablet, Rfl: 3 niacin 500 mg tablet, Take 1 tablet every day by oral route., Disp: , Rfl: potassium chloride CR (Klor-Con) 10 mEq ER tablet, Take 1 tablet every day by oral route for 30 days., Disp: , Rfl: Trelegy Ellipta 200-62.5-25 mcg blister with device, INHALE 1 INHALATION BY MOUTH IN THE MORNING, Disp: 180 each, Rfl: 3 Physical Exam Constitutional: Appearance: Normal appearance. He is normal weight. HENT: Head: Normocephalic and atraumatic. Right Ear: External ear normal. Left Ear: External ear normal. Eyes: Extraocular Movements: Extraocular movements intact. Pupils: Pupi (more content not included)... [facility] 11-13-2024 Note [facility] for [facility] DCCV on 10/17/[address] Montoya. Denies chest pain, SOB, palpitations, lightheadedness/syncope, and bleeding on Eliquis. Review of Systems Hematologic/Lymphatic: Bruises/bleeds easily. All other systems reviewed and are negative. [facility] 10-17-2024 Note DIRECT CARDIOVERSION PROCEDURE NOTE Date: 10/17/2024. Type of procedure: DC Cardioversion. Performed by: Mariusz Montoya MD Informed consent: Signed by patient. Preparation [...] No complications noted. Plan: Continue anticoagulation. Mariusz Montoya MD Cardiac Electrophysiology [facility] 10-17-2024 Note Patient: Nas guzman Procedure Information Date/Time: 10/17/24 1230 Procedure: Cardioversion - PC APPROVED Location: [facility] / [facility] (Cath) Providers: Mariusz Montoya MD Clinical information reviewed: Allergies Meds Physical Exam Airway Mallampati: II TM distance: >3 FB Neck ROM: full Cardiovascular Dental Pulmonary Abdominal Anesthesia Plan ASA 3 CSE Anesthetic plan and risks discussed with patient. Use of blood products discussed with patient who. Additional Equipment Requests [facility] 09-10-2024 Note ami [facility] 09-10-2024 Note AR Electrophysiology Consult Note Reason for visit: Afib and dilated CMP. 09/10/24 Patient underwent DIRECTOR TEEN POST-D upgrade procedure on 06/12/2023. Subsequent echocardiogram in [...] infrahisian disease. He was brought back to [facility] on 02/12/2020 due to what was discussed [...] Laterality Date CARD (more content not included)... [facility] 08-21-2024 History of Present illness Narrative [...] time if needed. documented in this encounter [facility] 08-12-2024 Note Pt is getting a colo noscopy in early August, is it alright to hold eliquis for two days prior to procedure? [facility] 08-08-2024 History of Present illness Narrative [...] Follows with Dr. Rodriguez Pulmonary medicine in [place] 60% Left renal artery stenosis noted in the past Decreased left ventricular function ejection fraction 30%. 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 His most recall his echo on 09/11/2023 showed an EF of 25-30%. He is no longer requiring a life vest. He is status post upgrade of permanent pacemaker to defibrillator an additional lead placement at the [facility] June 07, 2023. Grade 1 left ventricular diastolic dysfunction. Mild tricuspid regurgitation Mild mitral regurgitation Atrial flutter status post SUSAN cardioversion at [facility] in July of 2019.He did undergo an ablation after a hospital stay in October 2019. He is on anticoagulation with reduced dose Eliquis 2.5 mg p.o. b.I.d. 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 Adenocarcinoma the colon status post colectomy with reanastomosis in [place] August 2021. Being followed by Oncology with [...] Interpersonal Safety: Unknown (12/07/2023) Received from [facility] Safety & Environment Fear of Current or Ex-Partner: Not on file Emotionally Abused: Not on file Physically Abused: Not on file Sexually Abused: Not on file Physically or Sexually Abused: Not on file Housing Instability: Not on file Family History: Family History Problem Relation Age of Onset Diabetes Mother Hypertension Mother Diabetes Father Hypertension Father Allergies & Medications Allergies: Allergies Allergen Reactions Hoxugsz-Gfw-Sgs Reductase Inhibitors Current Meds: Current Outpatient Medications [...] results found for: IRONSAT , FERRITIN , [id number] , FOLATE [facility]: No [...] of your patients! Please contact me at [phone] (Office) or [phone] (Answering service) with any questions. AVERY SYED MD [facility] This note was created with the assistance of a speech-recognition program. Although the intention is to generate a document that actually reflects the content of the visit, no guarantees can be provided that every mistake has been identified and corrected by editing. AVERY SYED MD,PhD FACP [facility] ANY QUESTIONS FEEL FREE TO CALL: 1. OFFICE [phone] 2. ANSWERING SERVICE: [phone] documented in this encounter [facility] 07-24-2024 Note Pt is here for a fol low up from [facility] ER. Pt denies sob, chest pain, and palpatations. Review of Systems Cardiovascular: Positive for leg swelling. Hematologic/Lymphatic: Bruises/bleeds easily. All other systems reviewed and are negative. [facility] 07-24-2024 Note Cardiovascular Medic ine [facility] SUBJECTIVE Chief Complaint Patient presents with Atrial Fibrillation Coronary Artery Disease Nas Ren is a 84 y.o. male here for follow-up. HPI PMHx: chronic systolic heart failure, persistent afib, CAD, hypertension, and dilated cardiomyopathy s/p ICD He was in the ER last week for c/o low BP and dizziness. He went to [facility] and they told him he was in aflutter. He has hx of persistent a.fib. He has felt better since his ER visit. Denies c/o CP, dyspnea, orthopnea, PND, LE edema, dizziness/LH, palpitations, syncope. -------- Last HPI per Dr. Ortiz: He is [...] List Diagnosis Stage 3 chronic kidney disease ([facility]/HCC) Bacteremia Chronic systolic heart failure ([facility]) Dyslipidemia Edema of lower extremity Hyperlipidemia Hypertensive disorder Left ventricular systolic dysfunction Osteomyelitis of vertebra ([facility]/HCC) Paroxysmal atrial flutter ([facility]) Proteinuria Type 2 diabetes mellitus ([facility]) COPD (chronic obstructive pulmonary disease) ([facility]) Dilated cardiomyopathy ([facility]) Statin intolerance Stage 4 chronic kidney disease ([facility]/HCC) Chronic bronchitis, simple ([facility]/HCC) Chronic venous insufficiency Constipation Hyperlipidemia type II Hypothyroidism due to medication Impaired mobility and activities of daily living Iron deficiency anemia Colon cancer ([facility]/HCC) Mucopurulent chronic bronchitis ([facility]/HCC) Obstructive sleep apnea Pacemaker A-fib ([facility]) Psoas abscess, right ([facility]/HCC) Pulmonary hypertension ([facility]/HCC) Thyrotoxicosis Type 2 diabetes mellitus with hyperglycemia ([facility]) Past Medical History: Diagnosis Date Arrhythmia CHF (congestive heart failure) ([facility]/HCC) Chronic kidney disease Family History Problem Relation Name Age of Onset Diabetes Mother Heart disease Father Glaucoma Brother Diabetes Maternal Grandmother Clotting disorder Other Social History Tobacco Use Smoking status: Former Types: Cigarettes Quit date: 1981 Years since quittin.8 Smokeless tobacco: Never Substance Use Topics Alcohol use: Yes Comment: OCCASIONAL Drug use: Never Allergies Allergen Reactions Fbdkiwj-Dqp-Lfz Reductase Inhibitors Tramadol ROS Cardiovascular: Positive for [...] 500 mg tablet, (more content not included)... [facility] 07-09-2024 History of Present illness Narrative [...] was councelled on the risks of stroke, HI, and sudden with MOLINA, along with the [...] clinic: 1 year documented in this encounter [facility] 04-29-2024 Miscellaneous Notes Pts called to schedule July f/u appt in [place] with [facility]. Scheduled f/u appt and reminded to get labs 10 days prior. documented in this encounter [facility] 04-29-2024 Telephone encounter Note Pts called to schedule July f/u appt in [place] with [facility]. Scheduled f/u appt and reminded to get labs 10 days prior. [facility] 03-29-2024 Note [place] [facility] - [facility] Subjective Nas Ren is a 83 y.o. year old male patient being seen for 6 mo follow up chronic systolic heart failure, persistent afib, CAD, hypertension, and dilated cardiomyopathy s/p ICD. His device was interrogated last month, and he had lipid profile in December 2023. His hotel room attendant switched him from Bumex to Lasix due [...] Judgment: Judgment normal. Allergies Allergies Allergen Reactions Ejfican-Bsh-Ubm Reductase Inhibitors Tramadol Medications Current Outpatient Medicat (more content not included)... [facility] 02-08-2024 History of Present illness Narrative Images from the original note were not included. Date of Service: 02/08/24 PCP: ARNIE LINDA DO History of Present Illness Nas Ren is a 83 y.o. male, who was following us for history of stage 4 chronic kidney disease returning for nephrologic follow-up. When seen in September of 2023 the BUN was 47 creatinine is 2.35 in EGFR was 27 mL/min. For lower extremity edema we have treated him with Lasix 80 mg daily. Unfortunately Bumex was changed to a tier three medication by his insurance company rendering at unaffordable. Laboratories of 02/01/2024 show sodium 141 potassium 3.8 chloride 101 total CO2 31.5 BUN 55 creatinine 2.65 EGFR 23 mL/min calcium 9.1 phosphorus 4.1 and magnesium 2.4 mg/dL. Urinalysis showed trace protein on dipstick exam. Urine protein creatinine ratio was 0.32 grams/gram. Twenty-five hydroxy vitamin-D was 94.2 ng/mL. In general, Nas is doing well. There was no report of shortness of breath or lower extremity edema. His appetite in general has been good. His stamina is satisfactory. Problem List Stage 4 chronic kidney disease [...] Follows with Dr. Rodriguez Pulmonary medicine in [place] 60% Left renal artery stenosis noted in the past Decreased left ventricular function ejection fraction 30%. 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 His most recall his echo on 09/11/2023 showed an EF of 25-30%. He is no longer requiring a life vest. He is status post upgrade of permanent pacemaker to defibrillator an additional lead placement at the [facility] June 07, 2023. Grade 1 left ventricular diastolic dysfunction. Mild tricuspid regurgitation Mild mitral regurgitation Atrial flutter status post SUSNA cardioversion at [facility] in July of 2019.He did undergo an ablation after a hospital stay in October 2019. He is on anticoagulation with reduced dose Eliquis 2.5 mg p.o. b.I.d. 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 Adenocarcinoma the colon status post colectomy with reanastomosis in [place] August 2021. Being followed by Oncology with [...] Social History Narrative Not on file Social Determinants of Health Financial Resource Strain: Not on file Food Insecurity: Not on file Transportation Needs: Not on file Physical Activity: Not on file Stress: Not on file Social Connections: Not on file Interpersonal Safety: Unknown (12/07/2023) Received from [facility] Safety & Environment Fear of Current or Ex-Partner: Not on file Emotionally Abused: Not on file Physically Abused: Not on file Sexually Abused: Not on file Physically or Sexually Abused: Not on file Housing Instability: Not on file Family History: Family History Problem Relation Age of Onset Diabetes Mother Hypertension Mother Diabetes Father Hypertension Father Allergies & Medications Allergies: Allergies Allergen Reactions Txpaxki-Zge-Rqj Reductase Inhibitors Current Meds: Current Outpatient Medications [...] Units total) by mouth in the morning. ezetimibe (ZETIA) 10 mg tablet Take 1 tablet (10 mg total) by mouth in the morning. furosemide [...] 0.5 tablets (5 mg total) by mouth in the morning. metoprolol succinate XL (TOPROL-XL) 50 mg 24 [...] device Inhale 1 puff in the morning. No current facility-administered medications for this visit. Review of Systems Review of Systems Constitutional: Negative for chills, diaphoresis, fatigue and fever. HENT: Negative for congestion, ear discharge, ear pain, facial swelling and hearing loss. Eyes: Negative for pain, discharge, redness and itching. Respiratory: Positive for shortness of breath. Negative for cough and wheezing. Cardiovascular: Negative for chest pain, palpitations and leg swelling. Gastrointestinal: Negative for abdominal pain, constipation, diarrhea, nausea and vomiting. Endocrine: Negative for polydipsia, polyphagia and polyuria. Genitourinary: Negative for decreased urine volume, difficulty urinating, dysuria, enuresis, flank pain, frequency, hematuria and urgency. Musculoskeletal: Negative for arthralgias, joint swelling and myalgias. Skin: Negative for rash and wound. Neurological: Negative for dizziness, tremors, weakness, light-headedness and numbness. Hematological: Negative for adenopathy. Does not bruise/bleed easily. Physical Exam Vital Signs: Vitals: 02/08/24 1018 02/08/24 1019 BP: 126/68 126/58 BP Site: Left Arm Left Arm BP Postition: Sitting Standing BP CUFF SIZE: M (9-13 inches) M (9-13 inches) Pulse: 70 70 Weight: 97.5 kg (215 lb) BMI: Body mass index is 29.99 kg/m . General appearance: alert in no [...] Lymphatic: no cervical or axillary lymphadenopathy. Edema: He has no lower extremity edema Laboratory Studies Chemistry: No results found for: [...] results found for: IRONSAT , FERRITIN , ENEXZNXW34 , FOLATE Mineral and Bone Labs: No results found for: CALCIUM , PHOSPHORUS , VITD25 , PTH Urine Studies: No results found for: COLOR , TURBIDITY , SPECIFICGRA , NITRITE , PHURINE , LEUKOCYTE , PROTEIN , KETONES , UROBILINOGEN , BLOODHGB No results found for: UPROCRTRAT , MICROALBUR , MICRAU Immunology Profile No results found for: PROTELECTR , SEDRATE , CRP , RF , ANASCREEN , ANTIDSDNA , C3 , C4 , ANCA , MYELOP , PROTEINASE3 , ANTIGLOMERU No results found for: HAV , HEPAIGM , HEPBIGM , HEPBCAB , HBEAG , HEPCAB Imaging Echocardiogram: No results found. IMPRESSION 1. Stage 4 chronic kidney disease : Secondary to nephrosclerosis, renal vascular disease or less likely diabetic nephropathy. There has been a modest rise in his creatinine from the time of his last visit. This may be the result of prerenal factors or the progression of his underlying renal disease. There is little doubt that his creatinine will fluctuate to the extent that this congestive heart failure is compensated and with his intravascular volume status. Unfortunately he is not a candidate for TOMMY inhibitors ,angiotensin receptor blockers, nonsteroidal mineralocorticoid receptor antagonists, or SGLT2 inhibitors due to his advanced kidney disease. PLAN 1. Target systolic blood pressure to 130 mm of mercury or less. 2. Avoid prolonged use of nonsteroidal anti-inflammatory drugs or proton pump inhibitors. 3. He will return to this clinic in 6 months time for repeat evaluation. His renal chemistries should be reassess then. Thank you ARNIE LINDA DO for the opportunity to participate in the care of your patients! Please contact me at [phone] (Office) or [phone] (Answering service) with any questions. AVERY SYED MD [facility] This note was created with the assistance of a speech-recognition program. Although the intention is to generate a document that actually reflects the content of the visit, no guarantees can be provided that every mistake has been identified and corrected by editing. documented in this encounter [facility] 02-08-2024 Instructions Avery Syed MD - 02/08/2024 10:30 AM EDT Return in 6 months documented in this encounter [facility] 01-26-2024 Miscellaneous Notes Confirm appt with patient for 02/07 as well remind to have labs done 10-7 days before apt documented in this encounter [facility] 01-26-2024 Telephone encounter Note Confirm appt with patient for 02/07 as well remind to have labs done 10-7 days before apt [facility] 12-18-2023 Evaluation note Encounter Date Diagnosis Assessment Notes Dec, Thyrotoxicosis (ICD-10 - E05.90) Dec, 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 No bleeding complications Aug, Mucopurulent chronic bronchitis [...] use, the patient reduces the risk for HI, CVA, HTN, cardiac dysrhythmias and sudden cardiac [...] the risk for cerebrovascular and cardiovascular disease. [employer] Other 09-07-2023 Evaluation note* Encounter Date Diagnosis Assessment Notes Treatment Notes Treatment Clinical Notes Jun, Hypothyroidism due t o medication (ICD-10 - E03.2) [employer] Other 07-06-2023 Evaluation note* Encounter Date Diagnosis [...] use, the patient reduces the risk for HI, CVA, HTN, cardiac dysrhythmias and sudden cardiac [...] are maintaining regular scheduled appts with their 3rd grade reading teacher. No bleeding compliations Initiated on [employer] Other 05-30-2023 Evaluation note* Encounter Date Diagnosis Assessment Notes Treatment Notes Treatment Clinical Notes February, Hypothyroidism due t o medication (ICD-10 - E03.2) [employer] Other 05-19-2023 Progress [facility] March 03, 2023 2:31pm Note Date/Time March 03, 2023 2:21p m [facility] at [address] [address] Hem/Onc Follow Up Note - OP Signed Patient: Nas Ren MR#: [id number] : 1940 Acct:[id number] Age/Sex: 82 / M Type: REG RCR Copies to: MD Arnie Lui,DO Chivo Keller II, DO~ Date of Service: 03/03/2023 Time [...] for coordination of care (as documented) and wvmr-db-vcza counseling of patient and/or family. [facility] - Medical History Medical History: Medical History (Last Reviewed 07/21/22 @ 08:16 by Bev uMstafa RN) A-fib hx ablation Anemia Arthritis CHF [...] Calcium 8.8, Iron 56, TIBC 281, Iron Hifvhgbmxd13.9 L, Transferrin 201 L, Ferritin 236.7, Total [...] % (Auto) 68.3, Lymph % (Auto) 17.9, Sandoval % (Auto) 9.6, Eos % (Auto) 3.6, Baso % (Auto) 0.6, Nucleat RBC Rel Count 0.3, Neut # (Auto) 6.6, Lymph # (Auto) 1.7, Sandoval # (Auto) 0.9 H, Eos # (Auto) 0.3, Baso # (Auto) 0.1 - Home Medications and Allergies Allergies/Adverse Reactions: Allergies Llzjfir-TPH-AkD Reductase Inhibitor [Fyzegxk-Vfr-Uzc Reductase Inhibitor] Allergy (Verified 03/03/23 13:45) Muscle [...] <Electronically signed by EDWARD Nelson> 03/03/23 [address] [facility] Work Phone: 1(164) 228-601105-02-2023 Evaluation note* Encounter Date Diagnosis Assessment Notes Treatment Notes Treatment Clinical Notes February, Thyrotoxicosis (ICD-10 - 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 [employer] Other 03-02-2023 Evaluation note* Encounter Date Diagnosis [...] use, the patient reduces the risk for HI, CVA, HTN, cardiac dysrhythmias and sudden cardiac [...] Z12.5) Dec, Cardiac pacemaker (ICD-10 - Z95.0) [employer] Other 01-30-2023 Evaluation note* Encounter Date Diagnosis Assessment Notes Treatment Notes Treatment Clinical Notes Oct, Other thyrotoxicosis without thyrotoxic crisis or storm (ICD-10 - E05.80) [employer] Other 11-18-2022 Progress note Author Chivo Keller [facility] September 02, 2022 2:38pm Note Date/Time September 02, 2022 2:33pm [facility] at [address] [address] Hem/Onc Follow Up Note - OP Signed Patient: Nas Ren MR#: [id number] : 1940 Acct:[id number] Age/Sex: 82 / M Type: REG RCR [...] for coordination of care (as documented) and upki-ya-vhch counseling of patient and/or family. [facility] [...] % (Auto) 68.3, Lymph % (Auto) 18.5, Sandoval % (Auto) 8.4, Eos % (Auto) 4.3, Baso % (Auto) 0.5, Neut # (Auto) 4.6, Lymph # (Auto) 1.2, Sandoval # (Auto) 0.6, Eos # (Auto) 0.3, Baso # (Auto) 0.0, Nucleated RBC % (auto) 0.1 - Home Medications and Allergies Allergies/Adverse Reactions: Allergies Gnjapzs-XLZ-GkK Reductase Inhibitor [Xrleqku-Lpe-Vtt Reductase Inhibitor] Allergy (Verified 09/02/22 14:10) Muscle [...] Dictated By: Chivo Keller II, DO DD/ [id number] Signed By: <Electronically signed by Chivo Keller II, DO> 09/02/22 [address] [facility] Work Phone: 1(474) 182-230510-06-2022 [facility] Progress note Author Leigha Nelson [facility] June 03, 2022 10:35am Note Date/Time June 03, 2022 10 :10am [facility] [place] [address] Hem/Onc Follow Up Note - OP Signed Patient: Nas Ren MR#: [id number] : 1940 Acct:[id number] Age/Sex: 82 / M Type: REG RCR [...] for coordination of care (as documented) and qdta-xb-snvz counseling of patient and/or family. [facility] [...] % (Auto) 69.9, Lymph % (Auto) 17.2, Sandoval % (Auto) 8.0, Eos % (Auto) 4.1, Baso % (Auto) 0.8, Neut # (Auto) 6.2, Lymph # (Auto) 1.5, Sandoval # (Auto) 0.7, Eos # (Auto) 0.4, Baso # (Auto) 0.1, Nucleated RBC % (auto) 0.0 - Home Medications and Allergies Allergies/Adverse Reactions: Allergies Iuzqnds-SXP-UsH Reductase Inhibitor [Oblcbzn-Cwv-Zel Reductase Inhibitor] Allergy (Verified 06/03/22 09:55) Muscle [...] <Electronically signed by EDWARD Nelson> 06/03/22 [address] [facility] Work Phone: 1(938) 855-656206-18-2022 NoteMR#: [id number] [facility] Pt. Name: Nas Ren Admitted: 03/30/2022 Discharged: 04/02/2022 Date of : 1940 Physician: Gilmer Salazar MD DISCHARGE SUMMARY CONSULTING SERVICES: 1. Nephrology Service. 2. Endocrinology service. 3. Cardiology service. PRINCIPAL DIAGNOSES: 1. Qdczi-ro-amgbrpg heart failure, reduced ejection fraction of 35%. 2. Acute kidney injury on chronic kidney disease, stage 4, resolved. 3. Dyspnea, on exertion. 4. Essential hypertension. 5. History of coronary artery disease. 6. Iodine-induced hyperthyroidism, uncontrolled. 7. Rmt-wgoobpj-ohuaibwmj diabetes mellitus, diet controlled, A1c 6.4. 8. [...] is a 81-year-old male who presented to [facility] with chief complaint of dyspnea [...] overload occurs, he is to call his 3rd grade reading teacher and/or PCP. The patient also require repeat [...] Adler PA-C Date Trans: 04/02/2022 02:36 P/hans [id number] cc: Arnie Linda D.O. [address] [place] [address] [facility] [id number] [facility]05-21-2022 NotePROCEDURE: XR CHEST 1 V REASON [...] Electronically authenticated by: NICK OLMEDO Date: 2022-03-05 21:29[facility]05-15-2022 Progress note Author Chivo Keller [facility] February 27, 2022 12:52pm Note Date/Time February 25, 2022 12:11 pm [facility] at [address] [address] Hem/Onc Follow Up Note - OP Signed Patient: Nas Ren MR#: [id number] : 1940 Acct:[id number] Age/Sex: 81 / M Type: REG RCR [...] for coordination of care (as documented) and ivnn-qc-epyw counseling of patient and/or family. [facility] [...] 11 in Weight 95.39 kg Vital Signs: 05/13/22 11:40 Temperature 98.1 F Pulse Rate [Left [...] % (Auto) 65.1, Lymph % (Auto) 19.2, Sandoval % (Auto) 13.3, Eos % (Auto) 1.8, Baso % (Auto) 0.6, Neut # (Auto) 4.2, Lymph # (Auto) 1.2, Sandoval # (Auto) 0.9H, Eos # (Auto) 0.1, [...] Home Medications and Allergies Allergies/Adverse Reactions: Allergies Wrjtbwh-EJH-CcX Reductase Inhibitor [Kvmrsri-Aok-Zrp Reductase Inhibitor] Allergy (Verified 02/25/22 11:39) Muscle [...] by Chivo Keller II, DO> 02/27/22 1252 [facility] Work Phone: 1(455) 837-590211-16-2021 Consult note Author Nikunj Shultz [facility] August 31, 2021 9:50am Note Date/Time August 31, 2021 9:33am [facility] [place] [address] Hem/Onc Consult Note - OP Signed Patient: Nas Ren MR#: [id number] : 1940 Acct:[id number] Age/Sex: 81 / M Type: REG RCR [...] Type: None Home Medications & Allergies Allergies Lbatbsa-VVJ-YxC Reductase Inhibitor [Oavwxmw-Zus-Lku Reductase Inhibitor] Allergy (Verified 08/31/21 08:57) Muscle [...] or Bravo syndrome. I will discuss with [facility] genetics and refer the patient for genetic testing. - Time with Patient Coordination of Care & Counseling Time: Greater than 50% of time spent with patient was for coordination of care (as documented) and xsng-lm-rche counseling of patient and/or family. Dictated By: Nikunj Shultz MD DD/ Signed By: <Electronically signed by MD Nikunj Shultz> 08/31/21 10[address] [facility] Work Phone: Evaluation note* Diagnosis Onset Date Resolution Status Colon cancer acute [facility] Work Phone: Evaluation noteNo [employer] Other Evaluation note* Diagnosis Onset Date Resolution [...] (prostate specific antigen) noneactive Colon cancer acute [facility] Work Phone: Evaluation note* Diagnosis Onset Date Resolution Status Colon cancer acute Chronic bronchitis, simple a cute Chronic HFrEF (heart failure with reduced ejection fraction) acute Colon cancer acute Hypothyroidism due to medication acute Nonischemic dilated cardiomyopathy acute Obstructive sleep apnea acut e Paroxysmal atrial fibrillation acute Primary hypertension acute Stage 4 chronic kidney disease acute Type 2 diabetes mellitus with hyperglycemia acute [facility] Work Phone: Evaluation note* Diagnosis Bilateral impacted cerumen- Primary Impacted cerumen documented in this encounter [facility] HealthcareEvaluation note* Diagnosis MOLINA (obstructive sleep apnea)- Primary Obstructive sleep apnea (adult) (pediatric) Hypersomnia Hypersomnia, unspecified Primary insomnia Persistent disorder of initiating or maintaining sleep Snoring Other dyspnea and respiratory abnormality Hypoxia Hypoxemia documented in this encounter [facility] HealthcareEvaluation note* Diagnosis Stage 4 chronic kidney disease (CMS-HCC)- [facility] Stage 4 chronic kidney disease (CMS-HCC)- Primary [facility] Diagnosis Sensorineural hearing loss (SNHL) of both ears- Primary documented in this encounter [facility] HealthcareHistory and physical note Author Ramesh Rascon [facility] July 21, 2022 9:27am Note Date/Time July 21, 2022 9: 27am [facility] [address] [place] [address] Gastroenterology H&P Signed Patient: Nas Ren MR#: [id number] : 1940 Acct:[id number] Age/Sex: 82 / M Adm Date: 2 Loc: Room: Type: [facility] Attending Dr: Raemsh Rascon MD Copies to: DO Ramesh Lauren [...] <Electronically signed by Ramesh Rascon MD> 07/21/22926 [facility] Work Phone: History general Narrative - Reported* [...] HEART CATH 04/2016 Hospitalization History See above [employer] Other History general Narrative - Reported* Type [...] in year 07/2022 Hospitalization History See above [employer] Other History general Narrative - Reported* Type [...] Biventricular ICD 05/2023 Hospitalization History See above [employer] Other Hospital Discharge instructions Additional Instructions DISCHARGE [...] Follow up with PCP. - Office number [phone].[facility] Work Phone: InstructionsNot on filedocumented in this encounter [facility] [employer] SystemInstructionsNot on filedocumented in this encounter [facility] System[facility] note Author Leigha Nelson [facility] June 03, 2022 10:35am Note Date/Time June 03, 2022 10 :10am [facility] [place] [id number] Hem/Onc Follow Up Note - OP Signed Patient: Nas Ren MR#: [id number] : 1940 Acct:[id number] Age/Sex: 82 / M Type: REG RCR [...] for coordination of care (as documented) and mluh-iw-egsn counseling of patient and/or family. FORMERLY GRACE [...] % (Auto) 69.9, Lymph % (Auto) 17.2, Sandoval % (Auto) 8.0, Eos % (Auto) 4.1, Baso % (Auto) 0.8, Neut # (Auto) 6.2, Lymph # (Auto) 1.5, Sandoval # (Auto) 0.7, Eos # (Auto) 0.4, Baso # (Auto) 0.1, Nucleated RBC % (auto) 0.0 - Home Medications and Allergies Allergies/Adverse Reactions: Allergies Bkgslcc-CAH-CiU Reductase Inhibitor [Dvzfpgn-Oid-Gko Reductase Inhibitor] Allergy (Verified 06/03/22 09:55) Muscle [...] <Electronically signed by EDWARD Nelson> 06/03/22 1035 [facility] Work Phone: Progress note Author Chivo Keller [facility] September 02, 2022 2:38pm Note Date/Time September 02, 2022 2:33pm [facility] [place] [address] Hem/Onc Follow Up Note - OP Signed Patient: Nas Ren MR#: [id number] : 1940 Acct:[id number] Age/Sex: 82 / M Type: REG RCR [...] for coordination of care (as documented) and zdjr-id-hinl counseling of patient and/or family. FORMERLY GRACE [...] % (Auto) 68.3, Lymph % (Auto) 18.5, Sandoval % (Auto) 8.4, Eos % (Auto) 4.3, Baso % (Auto) 0.5, Neut # (Auto) 4.6, Lymph # (Auto) 1.2, Sandoval # (Auto) 0.6, Eos # (Auto) 0.3, Baso # (Auto) 0.0, Nucleated RBC % (auto) 0.1 - Home Medications and Allergies Allergies/Adverse Reactions: Allergies Zucfnlq-QPA-YhO Reductase Inhibitor [Pifrkhe-Hbs-Yih Reductase Inhibitor] Allergy (Verified 09/02/22 14:10) Muscle [...] by Chivo Keller II, DO> 09/02/22 1438 [facility] Work Phone: Progress note Author Chivo Keller [facility] September 01, 2023 2:14pm Note Date/Time September 01, 2023 2:09pm [facility] [place] [address] Hem/Onc Follow Up Note - OP Signed Patient: Nas Ren MR#: [id number] : 1940 Acct:[id number] Age/Sex: 83 / M Type: REG RCR [...] for coordination of care (as documented) and ipdj-pr-uvgm counseling of patient and/or family. FORMERLY GRACE [...] Calcium 9.7, Iron 84, TIBC 290, Iron Ednvvvrbgl55.0, Transferrin 207, Ferritin 239.3, Total Bilirubin 0.8, AST 23, ALT 20, Alkaline Phosphatase 114 H, Total Protein 6.9, Albumin 4.4, Globulin 2.5, Albumin/Globulin Ratio 1.8 08/30/23 09:32: Corrected WBC 7.0, Uncorrected WBC Count 7.0, RBC 3.96, Hgb 12.3L, Hct 36.8 L, MCV 92.8, MCH 30.9, MCHC 33.3, RDW 14.8, Plt Count 206, MPV 7.6, Neut % (Auto) 65.9, Lymph % (Auto) 21.9, Sandoval % (Auto) 7.9, Eos % (Auto) 3.8, Baso % (Auto) 0.5, Nucleat RBC Rel Count 0.1, Neut # (Auto) 4.6, Lymph # (Auto) 1.5, Sandoval # (Auto) 0.5, Eos # (Auto) 0.3, Baso # (Auto) 0.0 - Home Medications and Allergies Allergies/Adverse Reactions: Allergies Lxciixx-PBG-SuT Reductase Inhibitor [Ojvvsco-Bne-Kph Reductase Inhibitor] Allergy (Verified 03/03/23 13:45) Muscle [...] by Chivo Keller II, DO> 09/01/23 1414 [facility] Work Phone: Progress note Author Chivo Keller [facility] March 01, 2024 11:39am Note Date/Time March 01, 2024 11:18 am [facility] [place] [address] Cancer Center Note Signed Patient: Nas Ren MR#: [id number] : 1940 Acct:[id number] Age/Sex: 83 / M Type: REG AMB [...] Allergy (Unknown, Verified 12/18/23 10:02) Unknown Reaction Vwkkyel-QTU-FyB Reductase Inhibitor [Witikja-Vug-Fsg Reductase Inhibitor] Allergy (Unknown, Verified 12/18/23 10:02) [...] PO DAILY ezetimibe 10 mg PO DAILY chswcjmznzn-deehugybn-ottwumng 200-62.5-25 mcg (Trelegy Ellipta) 1 inh inhalation [...] by Chivo Keller II, DO> 03/01/24 1139 [facility] Work Phone: Summary Purpose Family History No [...] section and content) DATE CREATED AUTHOR 07/09/2021 [facility] DATE CREATED AUTHOR AUTHOR'S ORGANIZ ATION 06/10/2022 [facility] DATE CREATED AUTHOR AUTHOR'S ORGANIZ ATION 03/01/2023 [facility] DATE CREATED AUTHOR AUTHOR'S ORGANIZ ATION 08/24/2024 [facility] DATE CREATED AUTHOR AUTHOR'S ORGANIZ ATION 11/25/2024 [facility] DATE CREATED AUTHOR AUTHOR'S ORGANIZ ATION 12/06/2024 [facility] Care Teams (unrecognized sec tion and content) [...] 01, 2024 End: March 01, 2024 Chivo J Adamowicz II, [...] Active Ramesh Rascon MD Attending Provider Active Engagement Engineer Relationship Specialty Start Date End Date Arnie Linda MD [address] [place] [id number] PCP - General Internal Medicine 08/24/23 Engagement Engineer Relationship Specialty Start Date End Date Arnie Linda MD [address] [place] [id number] PCP - General Internal Medicine 08/24/23 Engagement Engineer Relationship Specialty Start Date End Date Arnie Linda MD [address] [place] [id number] PCP - General Internal Medicine 08/24/23 Engagement Engineer Relationship Specialty Start Date End Date Arnie Linda DO [address] [place] [address] PCP - General Internal Medicine 11/11/21 Engagement Engineer Relationship Specialty Start Date End Date Arnie Linda DO [address] [place] [address] PCP - General Internal Medicine 11/11/21 Engagement Engineer Relationship Specialty Start Date End Date Arnie Linda DO [address] [place] [address] PCP - General Internal Medicine 11/11/21 Engagement Engineer Relationship Specialty Start Date End Date Arnie Linda DO PCP - General Internal Medicine 11/11/21 Goals (unrecognized section and content) Goals may [...] alternate sectionNot on filedocumented as of this encounterNot on filedocumented as of this encounterNot on filedocumented as of this encounterNot on filedocumented as of this encounter REASON [...] BE BASED ON THE PRIMARY CLINICAL RECORDS. [employer] provides no warranty or guarantee of the accuracy or completeness of information in this document.
[2024-12-19 10:40] LABS: Thyroid Stimulating Hormone 23.918 uIU/mL (0.358-3.740)
[2024-12-19 11:45] LABS: Free T4 0.82 ng/dL (0.76-1.46)
[2024-12-20 04:07] LABS: Triiodothyronine (T3) 65 ng/dL (71-180)
== END 2024-12-19 09:46 | disposition home or self-care (01) ==
LOC: LAB 09:47
PROVIDERS: PCP Internal Medicine; Visit Provider Internal Medicine
DX: E05.90 Thyrotoxicosis, unspecified without thyrotoxic crisis or storm (principal)
CPT/HCPCS: 36415; 84439; 84443; 84480

== ENCOUNTER 2024-12-21 16:25 | Emergency (ER) | payer MEDICARE, SELFPAY ==
[2024-12-21] VITALS (26 sets, daily range): BP systolic 128–166; BP diastolic 65–93; PULSE 67–80; TEMP 36.9; O2SAT 88–97; BMI 28.6
--- OUTSIDE RECORDS SUMMARY | 2024-12-21 16:44 | XMS_ITS | CCD ---
Author Organization [facility] Care Team Providers Care Pollution Control Technician Name Role Phone GILMER SALAZAR Attending Unavailable GILMER SALAZAR Admitting Unavailable ARNIE LINDA Referring Unavailable ARNIE LINDA Primary Care Unavailable DO Arnie Linda Primary Care Provider CHARLENE Kelly Attending Provider MD Kalia Sánchez Referring Provider DO Chivo Keller II Attending Provider [phone] MD Kalia Sánchez Referring Provider [phone] DO Chivo Keller II Attending Provider MD Ramesh Rascon Attending Provider DO Arnie Linda Primary Care Provider MD Ramesh Rascon Attending Provider MD Kalia Sánchez Referring Provider DO Chivo Keller II Attending Provider [phone] Arnie Linda Unavailable LAURA FERMIN Admitting Unavailable [...] Unavailable DO Arnie Linda Primary Care Provider [phone] MD Kalia Sánchez Referring Provider Adamowicz II, DO Chivo Howell Attending Provider DO Arnie Linda Primary Care Provider [phone] MD Kalia Sánchez Referring Provider Adamowicz II, DO Chivo Howell Attending Provider Arnie Linda MD Primary Care Provider Ramesh Rascon Attending Unavailable Ramesh Rascon Admitting Unavailable Arnie Linda [facility] Unavailable Adamowicz II, Chivo Howell Attending Unavaila ble Adamowicz II, Chivo Howell Admitting Unavaila ble Kalia Sánchez Referring Unavailable Arnie Linda [facility] Unavailable MIKAYLA, MARIUSZ Referring Unavailable MIKAYLA, MARIUSZ [...] (3 sources) black walnut pollen extract; Translations: [ZYTZNRV-CCQ-PZF REDUCTASE INHIBITORS] Drug Allergy 05-16-20 18 [facility] Repository (11 sources) traMADol; Translations: [TRAMADOL] Drug Allergy 03-30-20 Itching [facility] Repository (9 sources) Ffugsyc-KHV-PcZ Reductase Inhibitor; Translations: [Tirvuct-XOR-QvB Reductase Inhibitor] Allergy to substance 06-03-[address] [facility] (13 sources) Albuterol Drug Allergy Unknown [employer] [facility] [employer] Other (17 sources) ezetimibe Drug Allergy Unknown [employer] Other (13 sources) HMG-CoA reductase inhibitor Drug allergy Unknown [employer] Other (19 sources) Niacin Drug Allergy Unknown [employer] Other (19 sources) Simvastatin Drug Allergy 12-18-19 Unknown, Unknown Reaction [facility] (8 sources) Statins Depletion *DIETARY PRODUCTS/DIETARY MANAGE Propensity to adverse reactions Unknown [employer] [facility] [employer] Other (4 sources) Allergies Reconciled Propensity to adverse reactions Unknown [employer] Other (8 sources) Albuterol *ANTIASTHMATIC AND BRONCHODILATOR AGENTS Propensity to adverse reactions Comment:dedrick lala more with this [employer] Other (4 sources) patient allergy list reviewed by nurse or physicia Propensity to adverse reactions 04-04-20 Comment:Done [employer] Other (4 sources) Niacin Drug Allergy 12-18-19 Unknown, Unknown Reaction [facility] (1 source) Simvastatin Drug Allergy 08-22-[address] [facility] Repository (1 source) traMADol Drug Allergy 08-22-[address] [facility] Repository (4 sources) HMG-CoA reductase inhibitor Propensity [...] 2021 1:37pm take 2 tablets by mo [facility] every twenty-four hours in the morning [...] August 02, 2021 1:40pm polyethylene glycol [phone] [id number] mg powder for oral solution (8 sources) [...] Coronary arteriosclerosis; Translations: [Atherosclerotic heart disease of [place] tribe coronary artery without angina pectoris] Onset: 03-09-2022 [...] 12-28-2017 Episodic Other aftercare (1 source) 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; Translations: [OTH PENITENTIARY CURRENT DRUG THERAPY] Onset: 03-09-2022 Episodic Other [...] Interpretation Reference Range Facility Follow-Upon 11-13-2024 Follow-Up [id number] Nas Ren 1940 M Date Provider Department Center 11/13/2024 Idalmis-ENRRIQUE MCKEON CARD [facility] Family History Problem Relation Age of Onset Diabetes Mother Heart disease Father Glaucoma Brother Diabetes Maternal Grandmother Clotting disorder Other Family Status - Relation Status Age at Mother Father Brother Maternal Grandmother Other Level of Service:59453 CT OFFICE/OUTPATIENT ESTABLISHED LOW MDM 20 MIN Reason for Visit and Comments: Atrial Fibrillation [80] Atrial Flutter [101] Normal [facility] HPon 10-17-2024 [facility] Electrophysiology Consult Note Reason for visit: Afib and dilated CMP. 10/17/24 Pt here for DCCV. Device check reveals atrial flutter with V pacing, 09/10/24 Patient underwent INSURANCE MANAGER-D upgrade procedure on 06/12/2023. Subsequent echocardiogram in [...] infrahisian disease. He was brought back to [facility] on 02/12/2020 due to what was discussed [...] (CMS/HCC) Chronic k (more content not included)... [facility] NURSNOTEon 10-17-2024 NURSNOTE RN educated pt and on discharge instructions. RN encouraged pt to voice any questions or concerns. Pt verbalizes no questions or concerns at this time. Pt was wheeled off unit with all belongings. [facility] Orders Onlyon 10-10-2024 Orders Only [id number] Nas Ren 1940 M Date Provider Department [place] 10/10/2024 [facility] V[facility] LAB GA HeartVAS Family History Problem Relation Age of Onset Diabetes Mother Heart disease Father Glaucoma Brother Diabetes Maternal Grandmother Clotting disorder Other Family Status - Relation Status Age at Mother Father Brother Maternal Grandmother Other [facility] 36on 09-20-2024 36 Regarding echo result from 09/19/2024: Per Dr. Montoya - EF has improved. Will repeat echo in 6 months. Order entered and faxed to [facility]. Patient and his informed. [facility] Office Visiton 09-10-2024 Follow-up visit [id number] Nas Ren 1940 M Date Provider Department Center 09/10/2024 MARIUSZ LOPEZ DARWIN [facility] Family History Problem Relation Age of Onset Diabetes Mother Heart disease Father Glaucoma Brother Diabetes Maternal Grandmother Clotting disorder Other Family Status - Relation Status Age at Mother Father Brother Maternal Grandmother Other Level of Service:91740 CT OFFICE/OUTPATIENT ESTABLISHED LOW MDM 20 MIN Normal [facility] Glucose Poct Glucometerson 1 10-22-2023 Commemt1 Glu2: Cleaned Meter Normal [facility] Comment on above: Result Comment: PERF ORMED BY: [facility] [address] [place] [address] PATHOLOGIST SERVICE SUPERVISOR TRU UMANZOR M.D. Performed By: #### G LULS #### Point of Care testing , Glucose [Mass/Vol] 112 mg/dL Normal [facility] Comment on above: Result Comment: [facility][note 3] Glucose Reference Range is dependent on time and content of last meal. Glucose of more than 200 mg/dL in a nonstressed, ambulatory subject supports the diagnosis of Diabetes Mellitus. Performed By: #### G CONI #### Point of Care testing , Vijay 08-22-2024 L Specimen: [id number] Received: 08/22/24 Status: ДМИТРИЙ Barry Num: [id number] Spec Type: Surgical Subm Dr: Ramesh Rascon MD Tissues: A Colon Biopsy (TRANSVERSEPOLYPS) B Colon Biopsy (DESCENDING POLYPS) C Colon Biopsy (SIGMOID POLYPS) Procedures: HE/Julieta Harding/Micro L4/3 Age/ Patient Sex Location Account Attending Physician Nas Ren 84/M [id number] Ramesh Rascon MD SPEC NUM: [id number] RECD: 08/22/24 STATUS: ДМИТРИЙ BARRY NUM: [id number] LLOYD: 08/22/24 DR: Ramesh Rascon MD ENTERED: 08/22/24 [facility] DR: SPEC TYPE: Surgical DEPT: S ENTERED BY: [id number] RECV BY: [id number] ORDERED: HE/6, Gross/Micro L4/3 ORDERED: HE/6, Gross/Micro [...] submitted in a single cassette. (1, ns, [id number] A) JG B received in formalin labeled descending polyps are 5 staley-parr, focally erythematous, friable, 0.2 to 0.5 cm polypoid fragments. The specimen is entirely submitted in a single cassette. (1, ns, [id number] B) JG C. Received in formalin labeled sigmoid polyps are 4 staley-parr, focally erythematous, Specimen: [id number] Received: 08/22/24 Status: ДМИТРИЙ Barry Num: [id number] Spec Type: Surgical Subm Dr: Ramesh Rascon MD Tissues: A Colon Biopsy (TRANSVERSEPOLYPS) B Colon Biopsy (DESCENDING POLYPS) C Colon Biopsy (SIGMOID POLYPS) Procedures: Julieta HELLER/Micro L4/3 Patient: MelodyNas Jefry [id number] (Continued) Specimen: [id number] Received: 08/22/24 (Continued) Gross Description (Continued) Signed (signature on file) Logan Ruiz MD 08/23/24925 Specimen: [id number] Received: 08/22/24 Status: ДМИТРИЙ Barry Num: [id number] Spec Type: Surgical Subm Dr: Ramesh Rascon MD Tissues: A Colon Biopsy (TRANSVERSEPOLYPS) B Colon Biopsy (DESCENDING POLYPS) C Colon Biopsy (SIGMOID POLYPS) Procedures: Julieta HELLER/Srinivas L4/3 Patient: Nas Ren [id number] (Continued) Specimen: [id number] Received: 08/22/24 (Continued) Gross Description (Continued) friable, 0.2 to 0.4 cm polypoid fragments. The specimen is entirely submitted in a single cassette. (1, ns, [id number] C) J CPT Codes 88 305 x 3 Specimen: [id number] Received: 08/22/24 Status: ДМИТРИЙ Barry Num: [id number] Spec Type: Surgical Subm Dr: Ramesh Rascon MD Tissues: A Colon Biopsy (TRANSVERSEPOLYPS) B Colon Biopsy (DESCENDING POLYPS) C Colon Biopsy (SIGMOID POLYPS) Procedures: HE/6, Gross/Micro L4/3 Patient: Nas Ren [id number] (Continued) Signed (signature on file) Logan Ruiz MD 08/23/24925 Normal [facility] 36on 08-12-2024 36 Okay to hold Eliquis 2 days prior to colonoscopy. Thanks Normal [facility] Office Visiton 07-24-2024 Follow-up visit [id number] Nas Ren 1940 M Date Provider Department Center 07/24/2024 ENRRIQUE TAVAREZ Family History Problem Relation Age of Onset Diabetes Mother Heart disease Father Glaucoma Brother Diabetes Maternal Grandmother Clotting disorder Other Family Status - Relation Status Age at Mother Father Brother Maternal Grandmother Other Level of Service:71734 CT OFFICE/OUTPATIENT ESTABLISHED MOD MDM 30 MIN Reason for Visit and Comments: Atrial Fibrillation [80] Coronary Artery Disease [187] Normal [facility] Office Visiton 03-29-2024 Follow-up visit [id number] Nas Ren 1940 M Date Provider Department Center 03/29/2024 Gregory-DAWN ORTIZ Family History Problem Relation Age of Onset Diabetes Mother Heart disease Father Glaucoma Brother Diabetes Maternal Grandmother Clotting disorder Other Family Status - Relation Status Age at Mother Father Brother Maternal Grandmother Other Level of Service:68880 CT OFFICE/OUTPATIENT ESTABLISHED LOW MDM 20 MIN Normal [facility] Alanine aminotransferase [En zymatic activity/volume] in Serum or PlasmaOrdered By: Chivo Keller on 02-22-2024 ALT [Catalytic activity/Vol] 15 U/L Normal 7-[address] [facility] Comment on above: Performed By: #### V [id number], TONY, CMP, FE and TIBC, CBC #### [facility] [address] #### SPE, KAPPA, LEXI SERUM #### [facility] , Albumin [Mass/volume] in Ser um or PlasmaOrdered By: Chivo Keller on 02-22-2024 Albumin [Mass/Vol] 3.9 g/dL Normal 2.9-4.4 [facility] Comment on above: Performed By: #### V [id number], TONY, CMP, FE and TIBC, CBC ####[facility] [place] [address] [place]#### SPE, KAPPA, LEXI SERUM ####[facility] , Albumin [Mass/volume] in Ser um or Plasma by Bromocresol green (BCG) dye binding methoOrdered By: Chivo Keller on 02-22-2024 Albumin BCG dye [Mass/Vol] 4.4 g/dL 3.5-5.[address] [facility] Alkaline phosphatase [Enzyma tic activity/volume] in Serum or PlasmaOrdered By: Chivo Keller on 02-22-2024 ALP [Catalytic activity/Vol] 100 U/L Normal 34-[address] [facility] Comment on above: Performed By: #### V [id number], TONY, CMP, FE and TIBC, CBC #### [facility] [address] [place] [address] [place] #### SPE, KAPPA, LEXI SERUM #### [facility] , Aspartate aminotransferase [ Enzymatic activity/volume] in Serum or PlasmaOrdered By: Chivo Keller on 02-22-2024 AST [Catalytic activity/Vol] 18 U/L Normal 13-[address] [facility] Comment on above: Performed By: #### V [id number], TONY, CMP, FE and TIBC, CBC #### [address] #### SPE, KAPPA, LEXI SERUM #### [facility] , Automated basophil %Ordered By: Chivo Keller on 02-22-2024 Basophils/100 WBC (Bld) 0.5 % Normal . [facility] Comment on above: Performed By: #### V [id number], TONY, CMP, FE and TIBC, CBC #### [address] #### SPE, KAPPA, LEXI SERUM #### [facility] , Automated basophil countOrde red By: Chivo Keller on 02-22-2024 Basophils (Bld) [#/Vol] 0.0 10*3/uL Normal 0.0-0.[address] [facility] Comment on above: Result Comment: PERF ORMED BY: [place] [address] PATHOLOGIST SERVICE SUPERVISOR TRU UMANZOR M.D. Performed By: #### V [id number], TONY, CMP, FE and TIBC, CBC #### [address] #### SPE, KAPPA, LEXI SERUM #### [facility] , Automated blood monocyte cou ntOrdered By: Chivo Keller on 02-22-2024 Monocytes (Bld) [#/Vol] 0.8 10*3/uL Normal 0.0-0.[address] [facility] Comment on above: Performed By: #### V [id number], TONY, CMP, FE and TIBC, CBC #### [place] [address] [place] #### SPE, KAPPA, LEXI SERUM #### [facility] , Automated eosinophil %Ordere d By: Chivo Keller on 02-22-2024 Eosinophils/100 WBC (Bld) 3.8 % Normal . [facility] Comment on above: Performed By: #### V [id number], TONY, CMP, FE and TIBC, CBC #### [place] [address] [place] #### SPE, KAPPA, LEXI SERUM #### [facility] , Automated eosinophil countOr dered By: Chivo Keller on 02-22-2024 Eosinophils (Bld) [#/Vol] 0.3 10*3/uL Normal 0.0-0.[address] [facility] Comment on above: Performed By: #### V [id number], TONY, CMP, FE and TIBC, CBC #### [place] [address] [place] #### SPE, KAPPA, LEXI SERUM #### [facility] , Automated monocyte %Ordered By: Chivo Keller on 02-22-2024 Monocytes/100 WBC (Bld) 10.0 % Normal . [facility] Comment on above: Performed By: #### V [id number], TONY, CMP, FE and TIBC, CBC #### [address] #### SPE, KAPPA, LEXI SERUM #### [facility] , Automated neutrophil %Ordere d By: Chivo Keller on 02-22-2024 Neutrophils/100 WBC (Bld) 66.6 % Normal . [facility] Comment on above: Performed By: #### V [id number], TONY, CMP, FE and TIBC, CBC #### [place] [address] [place] #### SPE, KAPPA, LEXI SERUM #### [facility] , Bilirubin.total [Mass/volume ] in Serum or PlasmaOrdered By: Chivo Keller on 02-22-2024 Bilirubin [Mass/Vol] 0.7 mg/dL Normal 0.3-1.0 [facility] Comment on above: Performed By: #### V [id number], TONY, CMP, FE and TIBC, CBC #### [facility] [address] [place] [address] [place] #### SPE, KAPPA, LEXI SERUM #### [facility] , CT abdomen pelvis wo conon 0 02-22-2024 CT abdomen pelvis wo con [facility] [address] [place] [address] [place] [address] CT Scan Report Signed Patient: Nas Ren MR#: [id number] 24 : 1940 Acct:[id number] Age/Sex: 83 / M ADM Date: 02/22/24 Loc: Room: Type: [facility] Attending Dr: Chivo Keller II DO Copies to: Chivo Keller II, DO Ordering Provider: Chivo Keller II, DO Date of Service: 02/22/24 CT/CT abdomen pelvis wo con: surveilance ([id number]) CT/CT chest wo con: surveilance CT chest [...] Michaela Bernard M.D.02/22/2024 2:03 PM Dictation Location: [place] [address] Transcribed By: [facility] 02/22/24 1403 Dictated By: Michaela Bernard II, MD 02/22/24 1351 Signed By: 02/22/24 1403 Normal [facility] Calcium [Mass/volume] in Ser um or PlasmaOrdered By: Chivo Keller on 02-22-2024 Calcium [Mass/Vol] 9.4 mg/dL Normal 8.6-10.3 [facility] Comment on above: Performed By: #### V [id number], TONY, CMP, FE and TIBC, CBC #### [address] #### SPE, KAPPA, LEXI SERUM #### [facility] , Carbon dioxide, total [Moles /volume] in Serum or PlasmaOrdered By: Chivo Keller on 02-22-2024 CO2 [Moles/Vol] 33.2 mmol/L High 21.0-31.0 [facility] Comment on above: Performed By: #### V [id number], TONY, CMP, FE and TIBC, CBC #### [place] [address] [place] #### SPE, KAPPA, LEXI SERUM #### [facility] , Chloride [Moles/volume] in S alayna or PlasmaOrdered By: Chivo Keller on 02-22-2024 Chloride [Moles/Vol] 100 mmol/L Normal 98-107 [facility] Comment on above: Performed By: #### V [id number], TONY, CMP, FE and TIBC, CBC #### [place] [address] [place] #### SPE, KAPPA, LEXI SERUM #### [facility] , Complete Blood Count Auto Di ffon 02-22-2024 Mean Corpuscular HGB Conc 33.9 g/dL Normal 32.5-35.6 [facility] Comment on above: Performed By: #### V [id number], TONY, CMP, FE and TIBC, CBC #### [place] [address] [place] #### SPE, KAPPA, LEXI SERUM #### [facility] , NRBC% 0.0 /100{WBC} Normal 0-0.5 [facility] Comment on above: Performed By: #### V [id number], TONY, CMP, FE and TIBC, CBC #### [place] [address] [place] #### SPE, KAPPA, LEXI SERUM #### [facility] , Comprehensive Metabolic Pane vijay 02-22-2024 Albumin [Mass/Vol] 4.4 g/dL Normal 3.5-5.7 [facility] Comment on above: Performed By: #### V [id number], TONY, CMP, FE and TIBC, CBC #### [place] [address] [place] #### SPE, KAPPA, LEXI SERUM #### [facility] , Creatinine Clr Calc Pharmacy 29.06 Normal [facility] Comment on above: Performed By: #### V [id number], TONY, CMP, FE and TIBC, CBC #### [place] [address] [place] #### SPE, KAPPA, LEXI SERUM #### [facility] , GFR/1.73 sq M.predicted MDRD (S/P/Bld) [Vol rate/Area] 26.711 mL/min/{1.73_m2} Normal [facility] Comment on above: Performed By: #### V [id number], TONY, CMP, FE and TIBC, CBC #### [place] [address] [place] #### SPE, KAPPA, LEXI SERUM #### [facility] , Creatinine [Mass/volume] in Serum or PlasmaOrdered By: Chivo Keller on 02-22-2024 Creatinine [Mass/Vol] 2.38 mg/dL High 0.70-1.30 [facility] Comment on above: Performed By: #### V [id number], TONY, CMP, FE and TIBC, CBC #### [place] [address] [place] #### SPE, KAPPA, LEXI SERUM #### [facility] , Erythrocyte distribution wid th [Ratio] by Automated countOrdered By: Chivo Keller on 02-22-2024 Erythrocyte distribution width (RBC) [Ratio] 14.6 % Normal 12.0-14.[address] [facility] Comment on above: Performed By: #### V [id number], TONY, CMP, FE and TIBC, CBC #### [place] [address] [place] #### SPE, KAPPA, LEXI SERUM #### [facility] , Erythrocytes [#/volume] in B lood by Automated countOrdered By: Chivo Keller on 02-22-2024 RBC (Bld) [#/Vol] 4.09 10*6/uL Normal 3.90-5.60 [facility] Comment on above: Performed By: #### V [id number], TONY, CMP, FE and TIBC, CBC #### [place] [address] [place] #### SPE, KAPPA, LEXI SERUM #### [facility] , Ferritin [Mass/volume] in Se rum or PlasmaOrdered By: Chivo Keller on 02-22-2024 Ferritin [Mass/Vol] 236.8 ng/mL Normal 23.9-336.2 [facility] Comment on above: Performed By: #### V [id number], TONY, CMP, FE and TIBC, CBC #### [facility] [address] [place] [address] [place] #### SPE, KAPPA, LEXI SERUM #### [facility] , Folate [Mass/volume] in Seru m or PlasmaOrdered By: Chivo Keller on 02-22-2024 Folate [Mass/Vol] 36.0 ng/mL >5.9 [facility] Comment on above: Folate reference ran ge: >5.9 ng/mlThe WHO technical consultation on folate and vitamin r26cztnywitqtkl has determined that folate concentrations lessthan 4 ng/ml are considered deficient. Free K+L LT Chains, Qn, Son 02-22-2024 Free [place] Light Chains, S 56.1 mg/L High 3.3-19.4 [facility] Comment on above: Performed By: #### V [id number], TONY, CMP, FE and TIBC, CBC ####[place] [address] [address]#### SPE, KAPPA, LEXI SERUM ####[facility] , Free Lambda Light Chains, S 37.2 mg/L High 5.7-26.3 [facility] Comment on above: Performed By: #### V [id number], TONY, CMP, FE and TIBC, CBC ####[place] [address] [address]#### SPE, KAPPA, LEXI SERUM ####[facility] , [place]/Lambda Ratio, S 1.51 Normal 0.26-1.65 [facility] Comment on above: Result Comment: Perf ormed at: CB - [facility] [address] [id number] Horseshoer: Nathan Munoz PhD, Phone: [phone] PERFORMED BY: [facility] [address] [place] [address] PATHOLOGIST SERVICE SUPERVISOR TRU UMANZOR M.D. Performed By: #### V [id number], TONY, CMP, FE and TIBC, CBC ####[address]#### SPE, KAPPA, LEXI SERUM ####[facility] , Glucose [Mass/volume] in Ser um or PlasmaOrdered By: Chivo Keller on 02-22-2024 Glucose [Mass/Vol] 129 mg/dL High 70-100 [facility] Comment on above: ADA recommended refe rence rangeRandom Glucose Reference Range is dependent on time and content of last meal. Glucose of more than 200 mg/dL in a nonstressed, ambulatory subject supports the diagnosis of Diabetes Mellitus. Result Comment: [place] om Glucose Reference Range is dependent on time and content of last meal. Glucose of more than 200 mg/dL in a nonstressed, ambulatory subject supports the diagnosis of Diabetes Mellitus. ADA recommended reference range Performed By: #### V [id number], TONY, CMP, FE and TIBC, CBC #### [address] #### SPE, KAPPA, LEXI SERUM #### [facility] , Hematocrit [Volume Fraction] of Blood by Automated countOrdered By: Chivo Keller on 02-22-2024 Hematocrit (Bld) [Volume fraction] 38.1 % Low 38.8-50.[address] [facility] Comment on above: Performed By: #### V [id number], TONY, CMP, FE and TIBC, CBC #### [address] #### SPE, KAPPA, LEXI SERUM #### [facility] , Hemoglobin [Mass/volume] in BloodOrdered By: Chivo Keller on 02-22-2024 Hemoglobin (Bld) [Mass/Vol] 12.9 g/dL Low 13.0-17.[address] [facility] Comment on above: Performed By: #### V [id number], TONY, CMP, FE and TIBC, CBC #### [place] [address] [place] #### SPE, KAPPA, LEXI SERUM #### [...] on above: Performed at: - [facility] [id number] [place], [place] [id number] Director: Nathan Munoz PhD, Phone: [phone] Immunofixation,Serumon 02-21 Immunofixation, Serum Normal . [facility] Comment on above: Result Comment: No m onoclonality detected. Performed By: #### V [id number], TONY, CMP, FE and TIBC, CBC #### [address] #### SPE, KAPPA, LEXI SERUM #### [facility] , Immunoglobulin A, Serum 179 mg/dL Normal 61-437 [facility] Comment on above: Performed By: #### V [id number], TONY, CMP, FE and TIBC, CBC #### [address] #### SPE, KAPPA, LEXI SERUM #### [facility] , Immunoglobulin G 987 mg/dL Normal 603-1613 [facility] Comment on above: Performed By: #### V [id number], TONY, CMP, FE and TIBC, CBC #### [address] #### SPE, KAPPA, LEXI SERUM #### [facility] , Immunoglobulin M, Serum 143 mg/dL Normal 15-143 [facility] Comment on above: Result Comment: Perf ormed at: - [facility] [place] [address] [place], [place] [id number] Horseshoer: Nathan Munoz PhD, Phone: [phone] Performed By: #### V [id number], TONY, CMP, FE and TIBC, CBC #### [place] [address] [place] #### SPE, KAPPA, LEXI SERUM #### [...] [facility] Comment on above: Performed at: [address] [id number] Director: Nathan Munoz PhD, Phone: [phone] Immunoglobulin light chains. lambda.free [Mass/volume] in Serum or PlasmaOrdered By: Chivo Keller on 02-22-2024 Immunoglobulin light chains.lambda.free [Mass/Vol] 37.2 mg/L High 5.7-26.[address] [facility] Iron [Mass/volume] in Serum or PlasmaOrdered By: Chivo Keller on 02-22-2024 Iron [Mass/Vol] 85 ug/dL Normal 50-[address] [facility] Comment on above: Performed By: #### V [id number], TONY, CMP, FE and TIBC, CBC #### [facility] [address] [place] [address] [place] #### SPE, KAPPA, LEXI SERUM #### [facility] , Iron and TIBC Profileon 05 % Iron Saturation 30.2 % Normal 20-50 [facility] Comment on above: Performed By: #### V [id number], TONY, CMP, FE and TIBC, CBC #### [facility] [address] [place] [address] [place] #### SPE, KAPPA, LEXI SERUM #### [facility] , Total Iron Binding Capacity 281 ug/dL Normal 255-450 [facility] Comment on above: Performed By: #### V [id number], TONY, CMP, FE and TIBC, CBC #### [facility] [address] [place] [address] #### SPE, KAPPA, LEXI SERUM #### [facility] [...] [#/Vol] 7.5 10*3/uL 4.1-10.[address] [facility] Leukocytes [#/volume] in Blo od by Automated countOrdered By: Chivo Keller on 02-22-2024 WBC (Bld) [#/Vol] 7.5 10*3/uL Normal 4.1-10.5 [facility] Comment on above: Performed By: #### V [id number], TONY, CMP, FE and TIBC, CBC #### [facility] [address] [place] [address] #### SPE, KAPPA, LEXI SERUM #### [facility] , Lymphocytes [#/volume] in Bl ood by Automated countOrdered By: Chivo Keller on 02-22-2024 Lymphocytes (Bld) [#/Vol] 1.4 10*3/uL Normal 1.00-4.[address] [facility] Comment on above: Performed By: #### V [id number], TONY, CMP, FE and TIBC, CBC #### [facility] [address] [place] [address] [place] #### SPE, KAPPA, LEXI SERUM #### [facility] , Lymphocytes/100 leukocytes i n Blood by Automated countOrdered By: Chivo Keller on 02-22-2024 Lymphocytes/100 WBC (Bld) 19.1 % Normal . [facility] Comment on above: Performed By: #### V [id number], TONY, CMP, FE and TIBC, CBC #### [place] [address] [place] #### SPE, KAPPA, LEXI SERUM #### [facility] , MCH [Entitic mass] by Automa bonnie countOrdered By: Chivo Keller on 02-22-2024 MCH (RBC) [Entitic mass] 31.6 pg Normal 27.5-35.[address] [facility] Comment on above: Performed By: #### V [id number], TONY, CMP, FE and TIBC, CBC #### [place] [address] [place] #### SPE, KAPPA, LEXI SERUM #### [facility] , MCHC Auto (RBC) [Mass/Vol]Or dered By: Chivo Keller on 02-22-2024 MCHC (RBC) [Mass/Vol] 33.9 g/dL 32.5-35.6 [facility] MCV [Entitic volume] by Auto mated countOrdered By: Chivo Keller on 02-22-2024 MCV (RBC) [Entitic vol] 93.2 fL Normal 83.5-101 [facility] Comment on above: Performed By: #### V [id number], TONY, CMP, FE and TIBC, CBC #### [place] [address] [place] #### SPE, KAPPA, LEXI SERUM #### [facility] , Neutrophils [#/volume] in Bl ood by Automated countOrdered By: Chivo Keller on 02-22-2024 Neutrophils (Bld) [#/Vol] 5.0 10*3/uL Normal 1.8-7.[address] [facility] Comment on above: Performed By: #### V [id number], TONY, CMP, FE and TIBC, CBC #### [place] [address] [place] #### SPE, KAPPA, LEXI SERUM #### [facility] , No Panel InformationOrdered By: Cihvo Keller on 02-22-2024 Protein Electrophoresis M-Tobi Not observed g/dL Not Observed [facility] Protein Electrophoresis Note See comment . [facility] Comment on above: Protein electrophore sis scan will follow via computer,mail, or tool and production planner delivery.Performed at: [place] [id number] Director: Nathan Munoz PhD, Phone: [phone] Serum Immunofixation See comment . [facility] Comment on above: No monoclonality det ected. Estimated GFR (CKD-EPI) 26.711 mL/Min [facility] Creatinine Clearance (Chem 29.[address] [facility] Nucleated erythrocytes [Pres ence] in Blood by Automated countOrdered By: Chivo Keller on 02-22-2024 Nucleated RBC Auto Ql (Bld) 0.0 /100{WBC} 0-0.[address] [facility] Platelet mean volume [Entiti c volume] in Blood by Automated countOrdered By: Chivo Keller on 02-22-2024 Platelet mean volume (Bld) [Entitic vol] 7.6 fL Normal 6.6-10.[address] [facility] Comment on above: Performed By: #### V [id number], TONY, CMP, FE and TIBC, CBC #### [facility] [address] [place] [address] [place] #### SPE, KAPPA, LEXI SERUM #### [facility] , Platelets [#/volume] in Bloo d by Automated countOrdered By: Chivo Keller on 02-22-2024 Platelets (Bld) [#/Vol] 196 10*3/uL Normal 150-[address] [facility] Comment on above: Performed By: #### V [id number], TONY, CMP, FE and TIBC, CBC #### [facility] [address] [place] [address] [place] #### SPE, KAPPA, LEXI SERUM #### [facility] , Potassium [Moles/volume] in Serum or PlasmaOrdered By: Chivo Keller on 02-22-2024 Potassium [Moles/Vol] 3.8 mmol/L Normal 3.5-5.1 [facility] Comment on above: Performed By: #### V [id number], TONY, CMP, FE and TIBC, CBC #### [facility] [address] [place] [address] [place] #### SPE, KAPPA, LEXI SERUM #### [facility] , Protein Electrophoresis, Ser umon 02-22-2024 Nrtkr-2-Eqtciaho 0.2 g/dL Normal 0.0-0.4 [facility] Comment on above: Performed By: #### V [id number], TONY, CMP, FE and TIBC, CBC ####[address]#### SPE, KAPPA, LEXI SERUM ####[facility] , Gzeby-8-Eevjouom 0.8 g/dL Normal 0.4-1.0 [facility] Comment on above: Performed By: #### V [id number], TONY, CMP, FE and TIBC, CBC ####[place] [address] [address]#### SPE, KAPPA, LEXI SERUM ####[facility] , Beta Globulin 0.9 g/dL Normal 0.7-1.3 [facility] Comment on above: Performed By: #### V [id number], TONY, CMP, FE and TIBC, CBC ####[place] [address] [place]#### SPE, KAPPA, LEXI SERUM ####[facility] , Gamma Globulin 1.0 g/dL Normal 0.4-1.8 [facility] Comment on above: Performed By: #### V [id number], TONY, CMP, FE and TIBC, CBC ####[address] [place] [address] [place]#### SPE, KAPPA, LEXI SERUM ####[facility] , M-Tobi Not Observed Normal Not Observed [facility] Comment on above: Performed By: #### V [id number], TONY, CMP, FE and TIBC, CBC ####[address]#### SPE, KAPPA, LEXI SERUM ####[facility] , SPE-Note Normal . [facility] Comment on above: Result Comment: Prot ein electrophoresis scan will follow via computer, mail, or tool and production planner delivery. Performed at: [facility] [employer] [id number] Horseshoer: Nathan Munoz PhD, Phone: [phone] Performed By: #### V [id number], TONY, CMP, FE and TIBC, CBC ####[address]#### SPE, KAPPA, LEXI SERUM ####[facility] , Protein [Mass/volume] in Ser um or PlasmaOrdered By: Chivo Keller on 02-22-2024 Protein [Mass/Vol] 6.8 g/dL Normal 6.0-8.5 [facility] Comment on above: Performed By: #### V [id number], TONY, CMP, FE and TIBC, CBC ####[place] [address] [place] [address] [place]#### SPE, KAPPA, LEXI SERUM ####[facility] , Protein [Mass/Vol] 7.4 g/dL Normal 6.4-8.9 [facility] Comment on above: Performed By: #### V [id number], TONY, CMP, FE and TIBC, CBC #### [facility] [address] [place] [address] [place] #### SPE, KAPPA, LEXI SERUM #### [facility] , Serum globulin measurement ( mass/volume)Ordered By: Chivo Keller on 02-22-2024 Globulin (S) [Mass/Vol] 2.9 g/dL Normal 2.2-3.9 [facility] Comment on above: Performed By: #### V [id number], TONY, CMP, FE and TIBC, CBC ####[facility] [place] [address] [place]#### SPE, KAPPA, LEXI SERUM ####[facility] , Serum globulin measurement b y calculation (mass/volume)Ordered By: Chivo Keller on 02-22-2024 Globulin (S) [Mass/Vol] 3.0 g/dL Normal [facility] Comment on above: Performed By: #### V [id number], TONY, CMP, FE and TIBC, CBC #### [place] [address] [place] #### SPE, KAPPA, LEXI SERUM #### [facility] , Serum or plasma albumin/glob ulin mass ratioOrdered By: Chivo Keller on 02-22-2024 Albumin/Globulin [Mass ratio] 1.3 {ratio} Normal 0.7-1.[address] [facility] Comment on above: Performed By: #### V [id number], TONY, CMP, FE and TIBC, CBC ####[place] [address] [place]#### SPE, KAPPA, LEXI SERUM ####[facility] , Albumin/Globulin [Mass ratio] 1.5 {ratio} Normal [facility] Comment on above: Performed By: #### V [id number], TONY, CMP, FE and TIBC, CBC #### [place] [address] [place] #### SPE, KAPPA, LEXI SERUM #### [...] Anion gap [Moles/Vol] 10.6 mmol/L Normal 6.0-15.0 [facility] Comment on above: Performed By: #### V [id number], TONY, CMP, FE and TIBC, CBC #### [facility] [address] [place] [address] #### SPE, KAPPA, LEXI SERUM #### [facility] [...] 02-22-2024 Sodium [Moles/Vol] 140 mmol/L Normal 136-145 [facility] Comment on above: Performed By: #### V [id number], TONY, CMP, FE and TIBC, CBC #### [facility] [address] [place] [address] [place] #### SPE, KAPPA, LEXI SERUM #### [facility] , Transferrin [Mass/volume] in Serum or PlasmaOrdered By: Chivo Keller on 02-22-2024 Transferrin [Mass/Vol] 201 mg/dL Low 203-362 [facility] Comment on above: Performed By: #### V [id number], TONY, CMP, FE and TIBC, CBC #### [address] #### SPE, KAPPA, LEXI SERUM #### [facility] , Urea nitrogen [Mass/volume] in Serum or PlasmaOrdered By: Chivo Keller on 02-22-2024 Urea nitrogen [Mass/Vol] 59 mg/dL High 7-[address] [facility] Comment on above: Performed By: #### V [id number], TONY, CMP, FE and TIBC, CBC #### [address] #### SPE, KAPPA, LEXI SERUM #### [facility] , Vit. B12/Folate Profileon Folate 36.0 ng/mL Normal >5.9 [facility] Comment on above: Result Comment: Echo te reference range: >5.9 ng/ml The WHO technical consultation on folate and vitamin b12 deficiencies has determined that folate concentrations less than 4 ng/ml are considered deficient. PERFORMED BY: [place] [address] PATHOLOGIST SERVICE SUPERVISOR TRU UMANZOR M.D. Performed By: #### V [id number], TONY, CMP, FE and TIBC, CBC #### [place] [address] [place] #### SPE, KAPPA, LEXI SERUM #### [facility] , Vitamin B12 ser/plasOrdered By: Chivo Keller on 02-22-2024 Cobalamin (Vitamin B12) [Mass/Vol] 649 pg/mL Normal 180-[address] [facility] Comment on above: Performed By: #### V [id number], TONY, CMP, FE and TIBC, CBC #### [place] [address] [place] #### SPE, KAPPA, LEXI SERUM #### [...] [Mass/Vol]on 02-01-2024 Ketones (U) [Mass/Vol] Negative NEGATIVE [facility] Laboratory - Chemistry and C hemistry - challengeon 02-01-2024 Calcium [Mass/Vol] 9.1 mg/dL 8.5-10.1 [facility] Chloride [Moles/Vol] 101 mmol/L 98-107 [facility] CO2 [Moles/Vol] 31.5 mmol/L 21.0-32.0 [facility] Creatinine [Mass/Vol] 2.66 mg/dL High 0.70-1.30 [facility] Free T4 [Mass/Vol] 1.03 ng/dL 0.76-1.46 [facility] GFR/1.73 sq M.predicted MDRD (S/P/Bld) [Vol rate/Area] 28 mL/min/{1.73_m2} Low >=[address] [facility] Glucose [Mass/Vol] 128 mg/dL High 74-106 [facility] Magnesium [Mass/Vol] 2.4 mg/dL 1.8-2.4 [facility] Potassium [Moles/Vol] 3.8 mmol/L 3.5-5.1 [facility] Sodium [Moles/Vol] 141 mmol/L 136-145 [facility] TSH Qn 8.924 m[IU]/L High 0.358-3.[address] [facility] Urea nitrogen [Mass/Vol] 55.0 mg/dL High 7.0-18.[address] [facility] Urea nitrogen/Creatinine [Mass ratio] 20.7 mg/mg [facility] Laboratory - Urinalysison Protein (U) [Mass/Vol] 25.1 mg/dL High <=11.9 [facility] Leukocytes [#/volume] correc bonnie for nucleated erythrocytes in Blood by Automated counon 02-01-2024 WBC corrected for nucl RBC Auto (Bld) [#/Vol] 8.0 10 3/uL 4.0-11.[address] [facility] MCH Auto (RBC) [Entitic mass ]on 02-01-2024 MCH (RBC) [Entitic mass] 30.9 pg 25.9-34.[address] [facility] MCHC Auto (RBC) [Mass/Vol]on 02-01-2024 MCHC (RBC) [Mass/Vol] 32.2 g/dL 29.9-35.2 [facility] MCV Auto (RBC) [Entitic vol] on 02-01-2024 MCV (RBC) [Entitic vol] 96.1 fL High 80.0-94.0 [facility] No Panel Informationon 01-31 25-Hydroxy Vitamin D Total 94.2 ng/mL [facility] Comment on above: <20 ng/mL Vit D defi cient20-<30 ng/mL Vit D [id number] ng/mL Vit D sufficient>100 ng/mL Potential Toxicity Parathyroid Hormone (Intact) 52 pg/mL 15-[address] [facility] Comment on above: Performed at: [facility] [employer]² [address] [id number] Director: Nathan Munoz PhD, Phone: [phone] Phosphorus Level 4.1 mg/dL 2.6-4.7 [facility] Prostate Specific Antigen Screen 0.91 ng/mL <=4.[address] [facility] Total Triiodothyronine 73 ng/dL 71-180 [facility] Comment on above: Performed at: [employer] [address] [id number] Director: Nathan Munoz PhD, Phone: [phone] Urine Random Creatinine 77.24 mg/dL 20.00-300.[address] [facility] Platelet mean volume Auto (B ld) [Entitic vol]on 02-01-2024 Platelet mean volume (Bld) [Entitic vol] 9.5 fL 9.5-13.[address] [facility] Platelets Auto (Bld) [#/Vol] on 02-01-2024 Platelets (Bld) [#/Vol] 199 10 3/uL 150-[address] [facility] Protein Auto test strip (U) [Mass/Vol]on 02-01-2024 Protein (U) [Mass/Vol] TRACE mg/dL NEG/TRACE [facility] RBC Auto (Bld) [#/Vol]on RBC (Bld) [#/Vol] 3.85 10 6/uL Low 4.70-6.10 [facility] Serum or plasma anion gap de terminationon 02-01-2024 Anion gap [Moles/Vol] 12.3 mmol/L [facility] Specific gravity Auto test s trip (U) [...] [facility] Comment on above: <100 mg/dl [id number] 0-129 mg/dl NEAR OR ABOVE [id number] mg/dl BORDERLINE [id number] mg/dl HIGH>190 mg/dl VERY HIGH Cholesterol in VLDL Calc [Ma ss/Vol]on 12-19-2023 Cholesterol in VLDL [Mass/Vol] 23.2 mg/dL [facility] Glucose mean value [Mass/vol ume] in Blood Estimated from glycated hemoglobinon 12-19-2023 Average glucose Estimated from glycated hemoglobin (Bld) [Mass/Vol] 137 mg/dL [facility] Laboratory - Chemistry and C hemistry - challengeon 12-19-2023 Cholesterol [Mass/Vol] 148 mg/dL <=200 [facility] Cholesterol in HDL [Mass/Vol] 43 mg/dL 40-[address] [facility] Comment on above: > or =60 mg/dl - LOW CARDIOVASCULAR RISK<40 mg/dl - HIGH CARDIOVASCULAR RISK Free T4 [Mass/Vol] 1.04 ng/dL 0.76-1.46 [facility] Triglyceride [Mass/Vol] 116 mg/dL <=150 [facility] TSH Qn 11.812 m[IU]/L 0.358-3.[address] [facility] Laboratory - Hematology and Cell countson 12-19-2023 HbA1c (Bld) [Mass fraction] 6.4 % 4.5-6.[address] [facility] Comment on above: ADA RECOMMENDED LIMI T 4.0 - 6.0ADA THERAPEUTIC TARGET < 7.0ACTION SUGGESTED> 7.0 Serum or plasma total choles terol/high density lipoprotein (HDL) cholesterol mass ernesto 12-19-2023 Cholesterol.total/Lissette sterol in HDL [Mass ratio] 3.4 {ratio} [facility] Comment on above: 3.3 - 4.4 LOW RISK4. 4 - 7.1 AVERAGE RISK7.1 - 11.0 MODERATE RISK>11.0 HIGH RISK Alanine aminotransferase [En zymatic activity/volume] in Serum or PlasmaOrdered By: Leigha Talamantesrenée on 08-30-2023 ALT [Catalytic activity/Vol] 20 U/L Normal 7-[address] [facility] Comment on above: Performed By: #### C EA, CBC, FE and TIBC, CMP, TONY ####[place] [address] [address] Albumin [Mass/volume] in Ser um or Plasma by Bromocresol green (BCG) dye binding methoOrdered By: Leigha Talamantesrenée on 08-30-2023 Albumin BCG dye [Mass/Vol] 4.4 g/dL 3.5-5.[address] [facility] Alkaline phosphatase [Enzyma tic activity/volume] in Serum or PlasmaOrdered By: Leigha Omar on 08-30-2023 ALP [Catalytic activity/Vol] 114 U/L High 34-[address] [facility] Comment on above: Performed By: #### C EA, CBC, FE and TIBC, CMP, TONY ####[facility] [id number] [place] [id number] [facility] Aspartate aminotransferase [ Enzymatic activity/volume] in Serum or PlasmaOrdered By: Leigha Omar on 08-30-2023 AST [Catalytic activity/Vol] 23 U/L Normal 13-[address] [facility] Comment on above: Performed By: #### C EA, CBC, FE and TIBC, CMP, TONY ####[facility] [id number] [place] [id number] [place] Automated basophil %Ordered By: Leigha Nelson on 08-30-2023 Basophils/100 WBC (Bld) 0.5 % Normal . [facility] Comment on above: Performed By: #### C EA, CBC, FE and TIBC, CMP, TONY ####[address] Automated basophil countOrde red By: Leigha Nelson on 08-30-2023 Basophils (Bld) [#/Vol] 0.0 10*3/uL Normal 0.0-0.[address] [facility] Comment on above: Result Comment: PERF ORMED BY: [facility] [address] [place] [address] PATHOLOGIST SERVICE SUPERVISOR TRU UMANZOR M.D. Performed By: #### C EA, CBC, FE and TIBC, CMP, TONY ####[address] Automated blood monocyte cou ntOrdered By: Leigha Talamantesrenée on 08-30-2023 Monocytes (Bld) [#/Vol] 0.5 10*3/uL Normal 0.0-0.[address] [facility] Comment on above: Performed By: #### C EA, CBC, FE and TIBC, CMP, TONY ####[address] Automated eosinophil %Ordere d By: Leigha Bangurajimena on 08-30-2023 Eosinophils/100 WBC (Bld) 3.8 % Normal . [facility] Comment on above: Performed By: #### C EA, CBC, FE and TIBC, CMP, TONY ####[address] Automated eosinophil countOr dered By: Leigha Bangurajimena on 08-30-2023 Eosinophils (Bld) [#/Vol] 0.3 10*3/uL Normal 0.0-0.[address] [facility] Comment on above: Performed By: #### C EA, CBC, FE and TIBC, CMP, TONY ####[address] Automated monocyte %Ordered By: Leigha Omar on 08-30-2023 Monocytes/100 WBC (Bld) 7.9 % Normal . [facility] Comment on above: Performed By: #### C EA, CBC, FE and TIBC, CMP, TONY ####[facility] Automated neutrophil %Ordere d By: Leigha Talamantesrenée on 08-30-2023 Neutrophils/100 WBC (Bld) 65.9 % Normal . [facility] Comment on above: Performed By: #### C EA, CBC, FE and TIBC, CMP, TONY ####[place] [address] [address] Bilirubin.total [Mass/volume ] in Serum or PlasmaOrdered By: Leigha Bangurajimena on 08-30-2023 Bilirubin [Mass/Vol] 0.8 mg/dL Normal 0.3-1.0 [facility] Comment on above: Performed By: #### C EA, CBC, FE and TIBC, CMP, TONY ####[address] abdomen pelvis wo conon 1 10-30-2022 CT abdomen pelvis wo con [facility] [place] [address] CT Scan Report Signed Patient: Nas Ren MR#: [id number] 24 : 1940 Acct:[id number] Age/Sex: 83 / M ADM Date: 08/30/23 Loc: Room: Type: [facility] Attending Dr: Chivo Keller II DO Copies to: EDWARD Luke II, DO Ordering Provider: Leigha Nelson APRN Date of Service: 08/30/23 CT/CT chest wo con: surveillance ([id number]) CT/CT abdomen pelvis wo con: surveillance CT [...] Scott Jr., D.O.08/30/2023 1:10 PM Dictation Location: [place] [address] Transcribed By: [facility] 08/30/23 1310 Dictated By: Sotero Scott Jr DO 08/30/23 1304 Signed By: 08/30/23 1310 Normal [facility] Calcium [Mass/volume] in Ser um or PlasmaOrdered By: Leigha Nelson on 08-30-2023 Calcium [Mass/Vol] 9.7 mg/dL Normal 8.6-10.3 [facility] Comment on above: Performed By: #### C EA, CBC, FE and TIBC, CMP, TONY ####[address] Carbon dioxide, total [Moles /volume] in Serum or PlasmaOrdered By: Leigha Nelson on 08-30-2023 CO2 [Moles/Vol] 35.5 mmol/L High 21.0-31.0 [facility] Comment on above: Performed By: #### C EA, CBC, FE and TIBC, CMP, TONY ####[address] Chloride [Moles/volume] in S alayna or PlasmaOrdered By: Leigha Talamantesrenée on 08-30-2023 Chloride [Moles/Vol] 102 mmol/L Normal 98-107 [facility] Comment on above: Performed By: #### C EA, CBC, FE and TIBC, CMP, TONY ####[address] Complete Blood Count Auto Di ffon 08-30-2023 Mean Corpuscular HGB Conc 33.3 g/dL Normal 32.5-35.6 [facility] Comment on above: Performed By: #### C EA, CBC, FE and TIBC, CMP, TONY ####[address] NRBC% 0.1 /100{WBC} Normal 0-0.5 [facility] Comment on above: Performed By: #### C EA, CBC, FE and TIBC, CMP, TONY ####[address] Comprehensive Metabolic Pane vijay 08-30-2023 Albumin [Mass/Vol] 4.4 g/dL Normal 3.5-5.7 [facility] Comment on above: Performed By: #### C EA, CBC, FE and TIBC, CMP, TONY ####[address] Creatinine Clr Calc Pharmacy 30.81 Normal [facility] Comment on above: Performed By: #### C EA, CBC, FE and TIBC, CMP, TONY ####[place] [id number] [facility] GFR/1.73 sq M.predicted MDRD (S/P/Bld) [Vol rate/Area] 27.976 mL/min/{1.73_m2} Normal [facility] Comment on above: Performed By: #### C EA, CBC, FE and TIBC, CMP, TONY ####[address] Creatinine [Mass/volume] in Serum or PlasmaOrdered By: Leigha Omar on 08-30-2023 Creatinine [Mass/Vol] 2.29 mg/dL High 0.70-1.30 [facility] Comment on above: Performed By: #### C EA, CBC, FE and TIBC, CMP, TONY ####[address] Erythrocyte distribution wid th [Ratio] by Automated countOrdered By: Leigha Talamantesrenée on 08-30-2023 Erythrocyte distribution width (RBC) [Ratio] 14.8 % Normal 12.0-14.[address] [facility] Comment on above: Performed By: #### C EA, CBC, FE and TIBC, CMP, TONY ####[address] Erythrocytes [#/volume] in B lood by Automated countOrdered By: Leigha Talmaantesrenée on 08-30-2023 RBC (Bld) [#/Vol] 3.96 10*6/uL Normal 3.90-5.60 [facility] Comment on above: Performed By: #### C EA, CBC, FE and TIBC, CMP, TONY ####[address] Ferritin [Mass/volume] in Se rum or PlasmaOrdered By: Leigha Talamantesrenée on 08-30-2023 Ferritin [Mass/Vol] 239.3 ng/mL Normal 23.9-336.2 [facility] Comment on above: Result Comment: PERF ORMED BY: [facility] [address] [place] [id number] PATHOLOGIST SERVICE SUPERVISOR TRU UMANZOR M.D. Performed By: #### C EA, CBC, FE and TIBC, CMP, TONY ####[address] Glucose [Mass/volume] in Ser um or PlasmaOrdered By: Leigha Nelson on 08-30-2023 Glucose [Mass/Vol] 111 mg/dL High 70-100 [facility] Comment on above: ADA recommended refe rence rangeRandom Glucose Reference Range is dependent on time and content of last meal. Glucose of more than 200 mg/dL in a nonstressed, ambulatory subject supports the diagnosis of Diabetes Mellitus. Result Comment: [place] om Glucose Reference Range is dependent on time and content of last meal. Glucose of more than 200 mg/dL in a nonstressed, ambulatory subject supports the diagnosis of Diabetes Mellitus. ADA recommended reference range Performed By: #### C EA, CBC, FE and TIBC, CMP, TONY ####[address] Hematocrit [Volume Fraction] of Blood by Automated countOrdered By: Leigha Nelson on 08-30-2023 Hematocrit (Bld) [Volume fraction] 36.8 % Low 38.8-50.[address] [facility] Comment on above: Performed By: #### C EA, CBC, FE and TIBC, CMP, TONY ####[place] [id number] [facility] Hemoglobin [Mass/volume] in BloodOrdered By: Leigha Talamantesrenée on 08-30-2023 Hemoglobin (Bld) [Mass/Vol] 12.3 g/dL Low 13.0-17.[address] [facility] Comment on above: Performed By: #### C EA, CBC, FE and TIBC, CMP, TONY ####[address] Iron [Mass/volume] in Serum or PlasmaOrdered By: Leigha Nelson on 08-30-2023 Iron [Mass/Vol] 84 ug/dL Normal 50-[address] [facility] Comment on above: Performed By: #### C EA, CBC, FE and TIBC, CMP, TONY ####[facility] [id number] [place] [address] [facility] Iron and TIBC Profileon 08-16 % Iron Saturation 29.0 % Normal 20-50 [facility] Comment on above: Performed By: #### C EA, CBC, FE and TIBC, CMP, TONY ####[facility] [place] [address] [facility] Total Iron Binding Capacity 290 ug/dL Normal 255-450 [facility] Comment on above: Performed By: #### C EA, CBC, FE and TIBC, CMP, TONY ####[place] [address] [place] [address] [facility] Iron binding capacity [Mass/ [...] [#/Vol] 7.0 10*3/uL 4.1-10.[address] [facility] Leukocytes [#/volume] in Blo od by Automated countOrdered By: Leigha Nelson on 08-30-2023 WBC (Bld) [#/Vol] 7.0 10*3/uL Normal 4.1-10.5 [facility] Comment on above: Performed By: #### C EA, CBC, FE and TIBC, CMP, TONY ####[place] [id number] [place] [id number] [facility] Lymphocytes [#/volume] in Bl ood by Automated countOrdered By: Leigha Nelson on 08-30-2023 Lymphocytes (Bld) [#/Vol] 1.5 10*3/uL Normal 1.00-4.[address] [facility] Comment on above: Performed By: #### C EA, CBC, FE and TIBC, CMP, TONY ####[address] Lymphocytes/100 leukocytes i n Blood by Automated countOrdered By: Leigha Talamantesrenée on 08-30-2023 Lymphocytes/100 WBC (Bld) 21.9 % Normal . [facility] Comment on above: Performed By: #### C EA, CBC, FE and TIBC, CMP, TONY ####[address] MCH [Entitic mass] by Automa bonnie countOrdered By: Leigha Talamantesrenée on 08-30-2023 MCH (RBC) [Entitic mass] 30.9 pg Normal 27.5-35.[address] [facility] Comment on above: Performed By: #### C EA, CBC, FE and TIBC, CMP, TONY ####[address] MCHC Auto (RBC) [Mass/Vol]Or dered By: Leigha Talamantesrenée on 08-30-2023 MCHC (RBC) [Mass/Vol] 33.3 g/dL 32.5-35.6 [facility] MCV [Entitic volume] by Auto mated countOrdered By: Leigha Talamantesrenée on 08-30-2023 MCV (RBC) [Entitic vol] 92.8 fL Normal 83.5-101 [facility] Comment on above: Performed By: #### C EA, CBC, FE and TIBC, CMP, TONY ####[address] Neutrophils [#/volume] in Bl ood by Automated countOrdered By: Leigha Talamantesrenée on 08-30-2023 Neutrophils (Bld) [#/Vol] 4.6 10*3/uL Normal 1.8-7.[address] [facility] Comment on above: Performed By: #### C EA, CBC, FE and TIBC, CMP, TONY ####[address] No Panel InformationOrdered By: Leigha Omar on 08-30-2023 Estimated GFR (CKD-EPI) 27.976 mL/Min [facility] Creatinine Clearance (Chem 30.[address] [facility] Nucleated erythrocytes [Pres ence] in Blood by Automated countOrdered By: Leigha Talamantesrenée on 08-30-2023 Nucleated RBC Auto Ql (Bld) 0.1 /100{WBC} 0-0.[address] [facility] Platelet mean volume [Entiti c volume] in Blood by Automated countOrdered By: Leigha Talamantesrenée on 08-30-2023 Platelet mean volume (Bld) [Entitic vol] 7.6 fL Normal 6.6-10.[address] [facility] Comment on above: Performed By: #### C EA, CBC, FE and TIBC, CMP, TONY ####[address] Platelets [#/volume] in Bloo d by Automated countOrdered By: Leigha Omar on 08-30-2023 Platelets (Bld) [#/Vol] 206 10*3/uL Normal 150-[address] [facility] Comment on above: Performed By: #### C EA, CBC, FE and TIBC, CMP, TONY ####[address] Potassium [Moles/volume] in Serum or PlasmaOrdered By: Leigha Talamantesrenée on 08-30-2023 Potassium [Moles/Vol] 4.5 mmol/L Normal 3.5-5.1 [facility] Comment on above: Performed By: #### C EA, CBC, FE and TIBC, CMP, TONY ####[place] [id number] [facility] Protein [Mass/volume] in Ser um or PlasmaOrdered By: Leigha Omar on 08-30-2023 Protein [Mass/Vol] 6.9 g/dL Normal 6.4-8.9 [facility] Comment on above: Performed By: #### C EA, CBC, FE and TIBC, CMP, TONY ####[place] [id number] [facility] Serum globulin measurement b y calculation (mass/volume)Ordered By: Leigha Nelson on 08-30-2023 Globulin (S) [Mass/Vol] 2.5 g/dL Normal [facility] Comment on above: Performed By: #### C EA, CBC, FE and TIBC, CMP, TONY ####[place] [id number] Serum or plasma albumin/glob ulin mass ratioOrdered By: Leigha Nelson on 08-30-2023 Albumin/Globulin [Mass ratio] 1.8 {ratio} Normal [facility] Comment on above: Performed By: #### C EA, CBC, FE and TIBC, CMP, TONY ####[address] Serum or plasma anion gap de terminationOrdered By: Leigha Nelson on 08-30-2023 Anion gap [Moles/Vol] 10.0 mmol/L Normal 6.0-15.0 [facility] Comment on above: Performed By: #### C EA, CBC, FE and TIBC, CMP, TONY ####[address] Serum or plasma carcinoembry onic antigen measurement (mass/volume)Ordered By: Leigha Nelson on 08-30-2023 Carcinoembryonic Ag [Mass/Vol] 2.1 ng/mL 0.0-3.[address] [facility] Sodium [Moles/volume] in Ser um or PlasmaOrdered By: Leigha Nelson on 08-30-2023 Sodium [Moles/Vol] 143 mmol/L Normal 136-145 [facility] Comment on above: Performed By: #### C EA, CBC, FE and TIBC, CMP, TONY ####[address] Transferrin [Mass/volume] in Serum or PlasmaOrdered By: Leigha Nelson on 08-30-2023 Transferrin [Mass/Vol] 207 mg/dL Normal 203-362 [facility] Comment on above: Performed By: #### C EA, CBC, FE and TIBC, CMP, TONY ####[facility] [place] [address] [facility] Urea nitrogen [Mass/volume] in Serum or PlasmaOrdered By: Leigha Nelson on 08-30-2023 Urea nitrogen [Mass/Vol] 51 mg/dL High 05-[address] [facility] Comment on above: Performed By: #### C EA, CBC, FE and TIBC, CMP, TNOY ####[facility] [id number] [place] [address] [facility] ECHOCARDIO M/2D COMPLETEon 0 02-28-2023 ECHOCARDIO M/2D COMPLETE Patient: NAS REN Exam Date: 02/28/2023 : 1940 Gender:M Ordering : MRS. MADDI SONG MIESHA Admission #: [id number] Family : DR ARNIE LINDA D.Rosario Order #: [id number] CLICK HERE TO VIEW EXAM ECHOCARDIOGRAM REPORT [...] Ortiz M.D. on 02/28/2023 at 20:26 Normal [facility] T3, TOTAL (TRIIODOTHYRONINE) on 02-16-2023 T3, TOTAL 83 ng/dL Normal 71-180 [facility] Comment on above: Performed By: #### F T4, PSASC #### [facility] [address] [place] [address] [address] Benito Schwartz FREE T4on 02-15-2023 Free T4 [Mass/Vol] 1.03 ng/dL Normal 0.76-1.46 [facility] Comment on above: Performed By: #### F T4 #### [facility] [address] [place] [address] [address] Benito Schwartz LIPID PROFILEon 02-15-2023 CHOL-HDL RATIO NORM SEE BELOW Normal [facility] Comment on above: Result Comment: 3.3 - 4.4 LOW RISK 4.4 - 7.1 AVERAGE RISK 7.1 - 11.0 MODERATE RISK >11.0 HIGH RISK Performed By: #### T SH, FT3, BMP #### [facility] [address] [place] [address] [address] Benito Schwartz Cholesterol [Mass/Vol] 164 mg/dL Normal <=200 [facility] Comment on above: Performed By: #### T SH, FT3, BMP #### [facility] [address] [place] [address] [address] Benito Schwartz Cholesterol in HDL [Mass/Vol] 41 mg/dL Normal 40-60 [facility] Comment on above: Performed By: #### T SH, FT3, BMP #### [facility] [address] [place] [address] [address] Benito Schwartz Cholesterol in LDL [Mass/Vol] 104.2 mg/dL Normal [facility] Comment on above: Performed By: #### T SH, FT3, BMP #### [facility] [address] [place] [address] [address] Benito Schwartz Cholesterol.total/Lissette sterol in HDL [Mass ratio] 4.0 {ratio} Normal [facility] Comment on above: Performed By: #### T SH, FT3, BMP #### [facility] [address] [place] [address] [address] Benito Schwartz HDL NORMAL > or = 60 mg/dl - LOW CARDIOVASCULAR RISK <40 mg/dl - HIGH CARDIOVASCULAR RISK Normal [facility] Comment on above: Performed By: #### T SH, FT3, BMP #### [facility] [address] [address] [address] Benito Schwartz LDL CALC NORMAL SEE BELOW Normal [facility] Comment on above: Result Comment: <100 mg/dl OPTIMAL 100 - 129 mg/dl NEAR OR ABOVE OPTIMAL 130 - 159 mg/dl BORDERLINE HIGH 160 - 189 mg/dl HIGH >190 mg/dl VERY HIGH Performed By: #### T SH, FT3, BMP #### [facility] [address] [place] [address] Dr. Benito Schwartz Triglyceride [Mass/Vol] 94 mg/dL Normal <=150 [facility] Comment on above: Performed By: #### T SH, FT3, BMP #### [facility] [address] [place] [address] Dr. Benito Schwartz VLDL CALC 18.8 mg/dL Normal [facility] Comment on above: Performed By: #### T SH, FT3, BMP #### [facility] [address] [place] [address] Dr. Benito Schwartz TSHon 02-15-2023 TSH 22.732 uIU/mL Critically high 0.358-3.740 [facility] Comment on above: Performed By: #### F T4, PSASC #### [facility] [address] [place] [address] Dr. Benito Schwartz PTH INTACTon 01-03-2023 PTH, Intact 46 pg/mL Normal 15-65 [facility] Comment on above: Performed By: #### U RTPCR #### [facility] [address] [place] [address] Dr. Benito Schwartz T3, TOTAL (TRIIODOTHYRONINE) on 01-03-2023 T3, TOTAL 77 ng/dL Normal 71-180 [facility] Comment on above: Performed By: #### T SH, FT3, BMP #### [facility] [address] [place] [address] Dr. Benito Schwartz CBC AUTO DIFFon 01-02-2023 BASO # 0.0 103/ul Normal 0.0-0.1 [facility] Comment on above: Performed By: #### C BC #### [facility] [address] [place] [address] Dr. Benito Schwartz Basophils/100 WBC (Bld) 0.4 % Normal 0.2-2.0 [facility] Comment on above: Performed By: #### C BC #### [facility] [address] [place] [address] Dr. Benito Schwartz EO # 0.4 103/ul Normal 0.0-0.7 [facility] Comment on above: Performed By: #### C BC #### [facility] [address] [place] [address] Dr. Benito Schwartz Eosinophils/100 WBC (Bld) 5.1 % Normal 0.9-7.0 [facility] Comment on above: Performed By: #### C BC #### [facility] [address] [place] [address] Dr. Benito Schwartz Erythrocyte distribution width (RBC) [Ratio] 13.2 % Normal 11.0-15.0 [facility] Comment on above: Performed By: #### C BC #### [facility] [address] [place] [address] Dr. Benito Schwartz Hematocrit (Bld) [Volume fraction] 37.4 % Critically low 42.0-54.0 [facility] Comment on above: Performed By: #### C BC #### [facility] [address] [place] [address] Dr. Benito Schwartz Hemoglobin (Bld) [Mass/Vol] 12.4 g/dL Critically low 14.0-18.0 [facility] Comment on above: Performed By: #### C BC #### [facility] [address] [place] [address] Dr. Benito Schwartz IG # 0.03 10e3/ul Normal 0.00-0.03 [facility] Comment on above: Performed By: #### C BC #### [facility] [address] [place] [address] Dr. Benito Schwartz IG % 0.4 % Normal 0.0-0.5 [facility] Comment on above: Performed By: #### C BC #### [facility] [address] [place] [address] Dr. Benito Schwartz LYMPH # 1.6 103/ul Normal 1.2-3.8 [facility] Comment on above: Performed By: #### C BC #### [facility] [address] [place] [address] Dr. Benito Schwartz Lymphocytes/100 WBC (Bld) 20.3 % Critically low 20.5-60.0 [facility] Comment on above: Performed By: #### C BC #### [facility] [address] [place] [address] Dr. Benito Schwartz MANUAL DIFF REQ NO Normal [facility] Comment on above: Performed By: #### C BC #### [facility] [address] [place] [address] Dr. Benito Schwartz MCH (RBC) [Entitic mass] 31.7 pg Normal 25.9-34.0 [facility] Comment on above: Performed By: #### C BC #### [facility] [address] [place] [address] Dr. Benito Schwartz MCHC (RBC) [Mass/Vol] 33.2 g/dL Normal 29.9-35.2 [facility] Comment on above: Performed By: #### C BC #### [facility] [address] [place] [address] Dr. Benito Schwartz MCV (RBC) [Entitic vol] 95.7 fL Critically high 80.0-94 .0 [facility] Comment on above: Performed By: #### C BC #### [facility] [address] [place] [address] Dr. Benito Schwartz MONO # 0.7 103/ul Normal 0.3-0.8 [facility] Comment on above: Performed By: #### C BC #### [facility] [id number] Benito Schwartz Monocytes/100 WBC (Bld) 8.6 % Normal 1.7-12.0 [facility] Comment on above: Performed By: #### C BC #### [facility] [address] [address] [address] Benito Schwartz NEUT # 5.3 103/ul Normal 1.4-6.5 [facility] Comment on above: Performed By: #### C BC #### [facility] [address] [place] [address] Dr. Benito Schwartz Neutrophils/100 WBC (Bld) 65.2 % Normal 43.0-75.0 [facility] Comment on above: Performed By: #### C BC #### [facility] [address] [place] [address] Dr. Benito Schwartz Platelet mean volume (Bld) [Entitic vol] 9.0 fL Critically low 9.5-13.5 [facility] Comment on above: Performed By: #### C BC #### [facility] [address] [place] [address] Dr. Beniot Schwartz PLT 209 103/ul Normal 150-450 [facility] Comment on above: Performed By: #### C BC #### [facility] [address] [place] [address] Dr. Benito Schwartz RBC 3.91 106/ul Critically low 4.70-6.10 [facility] Comment on above: Performed By: #### C BC #### [facility] [address] [place] [address] Dr. Benito Schwartz WBC 8.1 103/ul Normal 4.0-11.0 [facility] Comment on above: Performed By: #### C BC #### [facility] [address] [place], [place] [id number] Dr. Benito Schwartz FREE T4on 01-02-2023 Free T4 [Mass/Vol] 0.87 ng/dL Normal 0.76-1.46 [facility] Comment on above: Performed By: #### F T4, PSASC #### [facility] [address] [place] [address] Dr. Benito Schwartz GLYCOHEMOGLOBIN A1Con 2022 ADA RECOMMENDATION SEE BELOW Normal [facility] Comment on above: Result Comment: ADA RECOMMENDED LIMIT 4.0 - 6.0 ADA THERAPEUTIC TARGET < 7.0 ACTION SUGGESTED > 7.0 Performed By: #### C BC #### [facility] [address] [place] [address] Dr. Benito Schwartz Glucose [Mass/Vol] 126 mg/dL Normal [facility] Comment on above: Performed By: #### C BC #### [facility] [address] [place] [address] Dr. Bneito Schwartz HbA1c (Bld) [Mass fraction] 6.0 % Normal 4.5-6.2 [facility] Comment on above: Performed By: #### C BC #### [facility] [address] [place] [address] Dr. Benito Schwartz MAGNESIUMon 01-02-2023 Magnesium [Mass/Vol] 2.3 mg/dL Normal 1.8-2.4 [facility] Comment on above: Performed By: #### U RTPCR #### [facility] [address] [place] [address] Dr. Benito Schwartz PHOSPHORUSon 01-02-2023 Phosphate [Mass/Vol] 4.1 mg/dL Normal 2.6-4.7 [facility] Comment on above: Performed By: #### U RTPCR #### [facility] [address] [place] [address] Dr. Benito Schwartz PROF CHEM 8 (BAS METB)on Anion gap [Moles/Vol] 11.1 mmol/L Normal [facility] Comment on above: Performed By: #### U RTPCR #### [facility] [address] [place] [address] Dr. Benito Schwartz Calcium [Mass/Vol] 8.9 mg/dL Normal 8.5-10.1 [facility] Comment on above: Performed By: #### U RTPCR #### [facility] [address] [place] [address] Dr. Benito Schwartz Chloride [Moles/Vol] 100 mmol/L Normal 98-107 [facility] Comment on above: Performed By: #### U RTPCR #### [facility] [address] [address] [address] Benito Schwartz CO2 [Moles/Vol] 33.2 mmol/L Critically high 21.0-32.0 [facility] Comment on above: Performed By: #### U RTPCR #### [facility] [address] [address] [address] Benito Schwartz Creatinine [Mass/Vol] 2.31 mg/dL Critically high 0.70-1.30 [facility] Comment on above: Performed By: #### U RTPCR #### [facility] [address] [place] [address] Dr. Benito Schwartz EGFR-AF WALLISIAN 33 mL/min/1.73m2 Critically low >=60 [facility] Comment on above: Performed By: #### U RTPCR #### [facility] [address] [place] [address] Dr. Benito Schwartz EGFR-NON AF WALLISIAN 27 mL/min/1.73m2 Critically low >=60 [facility] Comment on above: Performed By: #### U RTPCR #### [facility] [address] [place] [address] Dr. Benito Schwartz Glucose [Mass/Vol] 112 mg/dL Critically high 74-106 [facility] Comment on above: Performed By: #### U RTPCR #### [facility] [address] [place] [address] Dr. Benito Schwartz Potassium [Moles/Vol] 4.3 mmol/L Normal 3.5-5.1 [facility] Comment on above: Performed By: #### U RTPCR #### [facility] [address] [address] [address] Benito Schwartz Sodium [Moles/Vol] 140 mmol/L Normal 136-145 [facility] Comment on above: Performed By: #### U RTPCR #### [facility] [address] [place] [address] Dr. Benito Schwartz Urea nitrogen [Mass/Vol] 51.0 mg/dL Critically high 7.0-18.0 [facility] Comment on above: Performed By: #### U RTPCR #### [facility] [address] [place] [address] Dr. Benito Schwartz Urea nitrogen/Creatinine [Mass ratio] 22.1 mg/mg Normal [facility] Comment on above: Performed By: #### U RTPCR #### [facility] [address] [place] [address] Dr. Benito Schwartz TSHon 01-02-2023 TSH 27.692 uIU/mL Critically high 0.358-3.740 [facility] Comment on above: Performed By: #### C BC #### [facility] [address] [place] [address] Dr. Benito Schwartz UA RANDOMon 01-02-2023 Bilirubin Ql (U) Negative Normal NEGATIVE [facility] Comment on above: Performed By: #### U RTPCR #### [facility] [address] [place] [address] Dr. Benito Schwartz Clarity (U) CLEAR Normal CLEAR [facility] Comment on above: Performed By: #### U RTPCR #### [facility] [address] [place] [address] Dr. Benito Schwartz Color (U) LT. YELLOW Normal YELLOW [facility] Comment on above: Performed By: #### U RTPCR #### [facility] [address] [place] [address] Dr. Benito Schwartz Glucose Ql (U) Negative Normal NEGATIVE [facility] Comment on above: Performed By: #### U RTPCR #### [facility] [address] [place] [address] Dr. Benito Schwartz Hemoglobin Ql (U) Negative Normal NEGATIVE [facility] Comment on above: Performed By: #### U RTPCR #### [facility] [address] [place] [address] Dr. Benito Schwartz Ketones Ql (U) Negative Normal NEGATIVE [facility] Comment on above: Performed By: #### U RTPCR #### [facility] [address] [place] [address] Dr. Benito Schwartz LEUKOCYTES Negative Normal NEGATIVE [facility] Comment on above: Performed By: #### U RTPCR #### [facility] [address] [place] [address] Dr. Benito Schwartz Nitrite Ql (U) Negative Normal NEGATIVE [facility] Comment on above: Performed By: #### U RTPCR #### [facility] [address] [place] [address] Dr. Benito Schwartz pH (U) 6.0 [pH] Normal 5-9 [facility] Comment on above: Performed By: #### U RTPCR #### [facility] [address] [place] [address] Dr. Benito Schwartz SPEC GRAVITY <=1.005 Abnormal 1.005-<=1.02 5 [facility] Comment on above: Performed By: #### U RTPCR #### [facility] [address] [place] [address] Dr. Benito Schwartz UA PROTEIN Negative Normal NEGATIVE/ TRACE [facility] Comment on above: Performed By: #### U RTPCR #### [facility] [address] [place] [address] Dr. Benito Schwartz Urobilinogen Qn (U) 0.2 {Jagruti'U}/dL Normal 0.2 - 1. 0 [facility] Comment on above: Performed By: #### U RTPCR #### [facility] [address] [place] [address] Dr. Benito Schwartz URINE T PROTEIN CREAT RATIOo n 01-02-2023 Protein (U) [Mass/Vol] 19.1 mg/dL Critically high <=12.0 [facility] Comment on above: Performed By: #### F T4, PSASC #### [facility] [address] [place] [address] Dr. Benito Schwartz UR PROT CREAT RAT 0.75 Normal [facility] Comment on above: Performed By: #### F T4, PSASC #### [facility] [address] [place] [address] Dr. Benito Schwartz URINE CREAT 25.63 mg/dL Normal 20.00-300.00 [facility] Comment on above: Performed By: #### F T4, PSASC #### [facility] [address] [place] [address] Dr. Benito Schwartz VITAMIN D 25 OHon 01-02-2023 VIT D 25-OH 86.8 ng/mL Normal [facility] Comment on above: Performed By: #### U RTPCR #### [facility] [address] [place] [address] Dr. Benito Schwartz VIT D RANGES SEE BELOW Normal [facility] Comment on above: Result Comment: <20 ng/mL Vit D deficient 20 - <30 ng/mL Vit D insufficient 30 - 100 ng/mL Vit D sufficient >100 ng/mL Potential Toxicity Performed By: #### U RTPCR #### [facility] [address] [place] [address] Dr. Benito Schwartz T3, TOTAL (TRIIODOTHYRONINE) on 11-17-2022 T3, TOTAL 82 ng/dL Normal 71-180 [facility] Comment on above: Performed By: #### V ITAD #### [facility] [address] [place] [address] Dr. Benito Schwartz FREE T4on 11-16-2022 Free T4 [Mass/Vol] 0.93 ng/dL Normal 0.76-1.46 [facility] Comment on above: Performed By: #### C BC #### [facility] [address] [place] [address] Dr. Benito Schwartz TSHon 11-16-2022 TSH 31.189 uIU/mL Critically high 0.358-3.740 [facility] Comment on above: Performed By: #### F T4, PSASC #### [facility] [address] [place] [address] Dr. Benito Schwartz T3, TOTAL (TRIIODOTHYRONINE) on 10-04-2022 T3, TOTAL 43 ng/dL Critically low 71-180 [facility] Comment on above: Performed By: #### F T4, PSASC #### [facility] [address] [place] [address] Dr. Benito Schwartz FREE T4on 10-03-2022 Free T4 [Mass/Vol] 0.35 ng/dL Critically low 0.76-1.46 [facility] Comment on above: Performed By: #### F T4, PSASC #### [facility] [address] [place] [address] Dr. Benito Schwartz TSHon 10-03-2022 TSH 121.174 uIU/mL Critically high 0.358-3.740 [facility] Comment on above: Performed By: #### F T4, PSASC #### [facility] [address] [place] [address] Dr. Benito Schwartz MAGNESIUMon 09-22-2022 Magnesium [Mass/Vol] 2.5 mg/dL Critically high 1.8-2.4 [facility] Comment on above: Performed By: #### F T4 #### [facility] [address] [place] [address] Dr. Benito Schwartz PROF CHEM 8 (BAS METB)on Anion gap [Moles/Vol] 7.3 mmol/L Normal [facility] Comment on above: Performed By: #### F T4 #### [facility] [address] [place] [address] Dr. Benito Schwartz Calcium [Mass/Vol] 8.8 mg/dL Normal 8.5-10.1 [facility] Comment on above: Performed By: #### F T4 #### [facility] [address] [place] [address] Dr. Benito Schwartz Chloride [Moles/Vol] 100 mmol/L Normal 98-107 [facility] Comment on above: Performed By: #### F T4 #### [facility] [address] [place] [address] Dr. Benito Schwartz CO2 [Moles/Vol] 33.7 mmol/L Critically high 21.0-32.0 [facility] Comment on above: Performed By: #### F T4 #### [facility] [address] [place] [address] Dr. Benito Schwartz Creatinine [Mass/Vol] 2.43 mg/dL Critically high 0.70-1.30 [facility] Comment on above: Performed By: #### F T4 #### [facility] [address] [address] [address] Benito Schwartz EGFR-AF WALLISIAN 31 mL/min/1.73m2 Critically low >=60 [facility] Comment on above: Performed By: #### F T4 #### [facility] [address] [address] [address] Benito Schwartz EGFR-NON AF WALLISIAN 26 mL/min/1.73m2 Critically low >=60 [facility] Comment on above: Performed By: #### F T4 #### [facility] [address] [place] [address] Dr. Benito Schwartz Glucose [Mass/Vol] 136 mg/dL Critically high 74-106 [facility] Comment on above: Performed By: #### F T4 #### [facility] [address] [place] [address] Dr. Benito Schwartz Potassium [Moles/Vol] 4.0 mmol/L Normal 3.5-5.1 [facility] Comment on above: Performed By: #### F T4 #### [facility] [address] [place] [address] Dr. Benito Schwartz Sodium [Moles/Vol] 137 mmol/L Normal 136-145 [facility] Comment on above: Performed By: #### F T4 #### [facility] [address] [place] [address] Dr. Benito Schwartz Urea nitrogen [Mass/Vol] 47.0 mg/dL Critically high 7.0-18.0 [facility] Comment on above: Performed By: #### F T4 #### [facility] [address] [place] [address] Dr. Benito Schwartz Urea nitrogen/Creatinine [Mass ratio] 19.3 mg/mg Normal [facility] Comment on above: Performed By: #### F T4 #### [facility] [address] [place] [address] Dr. Benito Schwartz PTH INTACTon 09-10-2022 PTH, Intact 36 pg/mL Normal 15-65 [facility] Comment on above: Performed By: #### F T4, PSASC #### [facility] [address] [place] [address] Dr. Benito Schwartz CBC AUTO DIFFon 09-09-2022 BASO # 0.0 103/ul Normal 0.0-0.1 [facility] Comment on above: Performed By: #### F T4, PSASC #### [facility] [address] [place] [address] Dr. Benito Schwartz Basophils/100 WBC (Bld) 0.5 % Normal 0.2-2.0 [facility] Comment on above: Performed By: #### F T4, PSASC #### [facility] [address] [place] [address] Dr. Benito Schwartz EO # 0.4 103/ul Normal 0.0-0.7 [facility] Comment on above: Performed By: #### F T4, PSASC #### [facility] [address] [place] [address] Dr. Benito Schwartz Eosinophils/100 WBC (Bld) 5.3 % Normal 0.9-7.0 [facility] Comment on above: Performed By: #### F T4, PSASC #### [facility] [address] [place] [address] Dr. Benito Schwartz Erythrocyte distribution width (RBC) [Ratio] 14.3 % Normal 11.0-15.0 [facility] Comment on above: Performed By: #### F T4, PSASC #### [facility] [address] [place] [address] Dr. Benito Schwartz Hematocrit (Bld) [Volume fraction] 36.9 % Critically low 42.0-54.0 [facility] Comment on above: Performed By: #### F T4, PSASC #### [facility] [address] [place] [address] Dr. Benito Schwartz Hemoglobin (Bld) [Mass/Vol] 12.4 g/dL Critically low 14.0-18.0 [facility] Comment on above: Performed By: #### F T4, PSASC #### [facility] [address] [address] [address] Benito Schwartz IG # 0.04 10e3/ul Critically high 0.00-0.03 [facility] Comment on above: Performed By: #### F T4, PSASC #### [facility] [address] [address] [address] Benito Schwartz IG % 0.5 % Normal 0.0-0.5 [facility] Comment on above: Performed By: #### F T4, PSASC #### [facility] [address] [address] [address] Benito Schwartz LYMPH # 1.6 103/ul Normal 1.2-3.8 [facility] Comment on above: Performed By: #### F T4, PSASC #### [facility] [address] [address] [address] Benito Schwartz Lymphocytes/100 WBC (Bld) 22.2 % Normal 20.5-60.0 [facility] Comment on above: Performed By: #### F T4, PSASC #### [facility] [address] [address] [address] Benito Schwartz MANUAL DIFF REQ NO Normal [facility] Comment on above: Performed By: #### F T4, PSASC #### [facility] [address] [address] [address] Benito Schwartz MCH (RBC) [Entitic mass] 31.2 pg Normal 25.9-34.0 [facility] Comment on above: Performed By: #### F T4, PSASC #### [facility] [address] [address] [address] Benito Schwartz MCHC (RBC) [Mass/Vol] 33.6 g/dL Normal 29.9-35.2 [facility] Comment on above: Performed By: #### F T4, PSASC #### [facility] [address] [address] [address] Benito Schwartz MCV (RBC) [Entitic vol] 92.7 fL Normal 80.0-94.0 [facility] Comment on above: Performed By: #### F T4, PSASC #### [facility] [address] [address] [address] Benito Schwartz MONO # 0.5 103/ul Normal 0.3-0.8 [facility] Comment on above: Performed By: #### F T4, PSASC #### [facility] [address] [place] [address] Dr. Benito Schwartz Monocytes/100 WBC (Bld) 6.4 % Normal 1.7-12.0 [facility] Comment on above: Performed By: #### F T4, PSASC #### [facility] [address] [place] [address] Dr. Benito Schwartz NEUT # 4.8 103/ul Normal 1.4-6.5 [facility] Comment on above: Performed By: #### F T4, PSASC #### [facility] [address] [place] [address] Dr. Benito Schwartz Neutrophils/100 WBC (Bld) 65.1 % Normal 43.0-75.0 [facility] Comment on above: Performed By: #### F T4, PSASC #### [facility] [address] [place] [address] Dr. Benito Schwartz Platelet mean volume (Bld) [Entitic vol] 8.7 fL Critically low 9.5-13.5 [facility] Comment on above: Performed By: #### F T4, PSASC #### [facility] [address] [place] [address] Dr. Benito Schwartz PLT 206 103/ul Normal 150-450 [facility] Comment on above: Performed By: #### F T4, PSASC #### [facility] [address] [place] [address] Dr. Benito Schwartz RBC 3.98 106/ul Critically low 4.70-6.10 [facility] Comment on above: Performed By: #### F T4, PSASC #### [facility] [address] [place] [address] Dr. Benito Schwartz WBC 7.4 103/ul Normal 4.0-11.0 [facility] Comment on above: Performed By: #### F T4, PSASC #### [facility] [address] [place] [address] Dr. Benito Schwartz MAGNESIUMon 09-09-2022 Magnesium [Mass/Vol] 2.1 mg/dL Normal 1.8-2.4 [facility] Comment on above: Performed By: #### B 12FOL, FETIBC #### [facility] [address] [place] [address] Dr. Benito Schwartz PHOSPHORUSon 09-09-2022 Phosphate [Mass/Vol] 3.2 mg/dL Normal 2.6-4.7 [facility] Comment on above: Performed By: #### B 12FOL, FETIBC #### [facility] [address] [place] [address] Dr. Benito Schwartz PROF CHEM 8 (BAS METB)on Anion gap [Moles/Vol] 10.1 mmol/L Normal [facility] Comment on above: Performed By: #### B 12FOL, FETIBC #### [facility] [address] [place] [address] Dr. Benito Schwartz Calcium [Mass/Vol] 9.3 mg/dL Normal 8.5-10.1 [facility] Comment on above: Performed By: #### B 12FOL, FETIBC #### [facility] [address] [place] [address] Dr. Benito Schwartz Chloride [Moles/Vol] 99 mmol/L Normal 98-107 [facility] Comment on above: Performed By: #### B 12FOL, FETIBC #### [facility] [address] [place] [address] Dr. Benito Schwartz CO2 [Moles/Vol] 32.4 mmol/L Critically high 21.0-32.0 [facility] Comment on above: Performed By: #### B 12FOL, FETIBC #### [facility] [address] [place] [address] Dr. Benito Schwartz Creatinine [Mass/Vol] 2.77 mg/dL Critically high 0.70-1.30 [facility] Comment on above: Performed By: #### B 12FOL, FETIBC #### [facility] [address] [place] [address] Dr. Benito Schwartz EGFR-AF WALLISIAN 27 mL/min/1.73m2 Critically low >=60 [facility] Comment on above: Performed By: #### B 12FOL, FETIBC #### [facility] [address] [place] [address] Dr. Benito Schwartz EGFR-NON AF WALLISIAN 22 mL/min/1.73m2 Critically low >=60 [facility] Comment on above: Performed By: #### B 12FOL, FETIBC #### [facility] [address] [place] [address] Dr. Benito Schwartz Glucose [Mass/Vol] 166 mg/dL Critically high 74-106 [facility] Comment on above: Performed By: #### B 12FOL, FETIBC #### [facility] [address] [place] [address] Dr. Benito Schwartz Potassium [Moles/Vol] 3.5 mmol/L Normal 3.5-5.1 [facility] Comment on above: Performed By: #### Adria 12FOL, FETIBC #### [facility] [address] [place] [address] Dr. Benito Schwartz Sodium [Moles/Vol] 138 mmol/L Normal 136-145 [facility] Comment on above: Performed By: #### B 12FOL, FETIBC #### [facility] [address] [place] [address] Dr. Benito Schwartz Urea nitrogen [Mass/Vol] 50.0 mg/dL Critically high 7.0-18.0 [facility] Comment on above: Performed By: #### B 12FOL, FETIBC #### [facility] [address] [place] [address] Dr. Benito Schwartz Urea nitrogen/Creatinine [Mass ratio] 18.1 mg/mg Normal [facility] Comment on above: Performed By: #### B 12FOL, FETIBC #### [facility] [address] [place] [address] Dr. Benito Schwartz UA RANDOMon 09-09-2022 Bilirubin Ql (U) Negative Normal NEGATIVE [facility] Comment on above: Performed By: #### V ITAD #### [facility] [address] [place] [address] Dr. Benito Schwartz Clarity (U) CLEAR Normal CLEAR [facility] Comment on above: Performed By: #### V ITAD #### [facility] [address] [place] [address] Dr. Benito Schwartz Color (U) LT. YELLOW Normal YELLOW [facility] Comment on above: Performed By: #### V ITAD #### [facility] [address] [place] [address] Dr. Benito Schwartz Glucose Ql (U) Negative Normal NEGATIVE [facility] Comment on above: Performed By: #### V ITAD #### [facility] [address] [place] [address] Dr. Benito Schwartz Hemoglobin Ql (U) Negative Normal NEGATIVE [facility] Comment on above: Performed By: #### V ITAD #### [facility] [address] [place] [address] Dr. Benito Schwartz Ketones Ql (U) Negative Normal NEGATIVE [facility] Comment on above: Performed By: #### V ITAD #### [facility] [address] [place] [address] Dr. Benito Schwartz LEUKOCYTES Negative Normal NEGATIVE [facility] Comment on above: Performed By: #### V ITAD #### [facility] [address] [place] [address] Dr. Benito Schwartz Nitrite Ql (U) Negative Normal NEGATIVE [facility] Comment on above: Performed By: #### V ITAD #### [facility] [address] [place] [address] Dr. Benito Schwartz pH (U) 5.5 [pH] Normal 5-9 [facility] Comment on above: Performed By: #### V ITAD #### [facility] [address] [place] [address] Dr. Benito Schwartz SPEC GRAVITY 1.010 Normal 1.005-<=1.02 5 [facility] Comment on above: Performed By: #### V ITAD #### [facility] [address] [place] [address] Dr. Benito Schwartz UA PROTEIN Negative Normal NEGATIVE/ TRACE [facility] Comment on above: Performed By: #### V ITAD #### [facility] [address] [address] [address] Benito Schwartz Urobilinogen Qn (U) 0.2 {Jagruti'U}/dL Normal 0.2 - 1. 0 [facility] Comment on above: Performed By: #### V ITAD #### [facility] [address] [place] [address] Dr. Benito Schwartz URINE T PROTEIN CREAT RATIOo n 09-09-2022 Protein (U) [Mass/Vol] 16.4 mg/dL Critically high <=12.0 [facility] Comment on above: Performed By: #### T KRISTOPHER, FT3, BMP #### [facility] [address] [place] [address] Dr. Benito Schwartz UR PROT CREAT RAT 0.79 Normal [facility] Comment on above: Performed By: #### T SH, FT3, BMP #### [facility] [address] [place] [address] Dr. Benito Schwartz URINE CREAT 20.88 mg/dL Normal 20.00-300.00 [facility] Comment on above: Performed By: #### T SH, FT3, BMP #### [facility] [address] [place] [address] Dr. Benito Schwartz VITAMIN D 25 OHon 09-09-2022 VIT D 25-OH 83.7 ng/mL Normal [facility] Comment on above: Performed By: #### V ITAD #### [facility] [address] [place] [address] Dr. Benito Schwartz VIT D RANGES SEE BELOW Normal [facility] Comment on above: Result Comment: <20 ng/mL Vit D deficient 20 - <30 ng/mL Vit D insufficient 30 - 100 ng/mL Vit D sufficient >100 ng/mL Potential Toxicity Performed By: #### V ITAD #### [facility] [address] [place] [address] Dr. Benito Schwartz Albumin [Mass/volume] in Ser um or PlasmaOrdered By: Leigha Nelson on 08-31-2022 Albumin [Mass/Vol] 3.9 g/dL 3.2-5.5 [facility] Basophils Auto (Bld) [#/Vol] Ordered By: Leigha Nelson on 08-31-2022 Basophils (Bld) [#/Vol] 0.0 10*3/uL 0.0-0.[address] [facility] Basophils/100 WBC Auto (Bld) Ordered By: Leigha Nelson on 08-31-2022 Basophils/100 WBC (Bld) 0.5 % . [facility] Creatinine and Glomerular fi ltration rate.predicted panel (S/P/Bld)Ordered By: Leigha Nelson on 08-31-2022 Creatinine [Mass/Vol] 2.63 mg/dL 0.64-1.27 [facility] Eosinophils Auto (Bld) [#/Vo l]Ordered By: [...] 08-31-2022 Globulin (S) [Mass/Vol] 2.8 g/dL [facility] Hematocrit Auto (Bld) [Volum e [...] 08-31-2022 WBC (Bld) [#/Vol] 6.7 10*3/uL 4.5-11.0 [facility] Lymphocytes Auto (Bld) [#/Vo l]Ordered By: [...] 08-31-2022 MCHC (RBC) [Mass/Vol] 33.4 g/dL 32.5-35.6 [facility] MCV Auto (RBC) [Entitic vol] Ordered By: Leigha Nelson on 08-31-2022 MCV (RBC) [Entitic vol] 92.9 fL 83.5-101 [facility] Monocytes Auto (Bld) [#/Vol] Ordered By: Leigha Nelson on 08-31-2022 Monocytes (Bld) [#/Vol] 0.6 10*3/uL 0.0-0.[address] [facility] Monocytes/100 WBC Auto (Bld) Ordered By: Leigha Nelson on 08-31-2022 Monocytes/100 WBC (Bld) 8.4 % . [facility] Neutrophils Auto (Bld) [#/Vo l]Ordered By: [...] on 08-31-2022 Protein [Mass/Vol] 6.7 g/dL 6.1-7.9 [facility] RBC Auto (Bld) [#/Vol]Ordere d By: Leigha Nelson on 08-31-2022 RBC (Bld) [#/Vol] 4.00 10*6/uL 3.90-5.60 [facility] Serum or plasma alanine paige otransferase measurement without P-5'-P (enzymatic activiOrdered By: Leigha Nelson on 08-31-2022 ALT No additional P-5'-P [Catalytic activity/Vol] 26 U/L 10-[address] [facility] Serum or plasma albumin/glob ulin mass [...] gap [Moles/Vol] 9.4 mmol/L 6.0-15.0 [facility] Serum or plasma aspartate am inotransferase measurement (enzymatic activity/volume)Ordered By: Leigha Nelson on 08-31-2022 AST [Catalytic activity/Vol] 32 U/L 10-[address] [facility] Serum or plasma calcium darshan urement (mass/volume)Ordered By: Leigha Nelson on 08-31-2022 Calcium [Mass/Vol] 8.9 mg/dL 8.2-10.2 [facility] Serum or plasma carcinoembry onic antigen measurement (mass/volume)Ordered By: Leigha Nelson on 08-31-2022 Carcinoembryonic Ag [Mass/Vol] 2.5 ng/mL 0.0-3.[address] [facility] Serum or plasma chloride ernestine surement (moles/volume)Ordered By: Leigha Nelson on 08-31-2022 Chloride [Moles/Vol] 98 mmol/L 95-114 [facility] Serum or plasma glucose darshan urement (mass/volume)Ordered By: Leigha Nelson on 08-31-2022 Glucose [Mass/Vol] 104 mg/dL 70-100 [facility] Comment on above: ADA recommended refe rence rangeRandom Glucose Reference Range is dependent on time and content of last meal. Glucose of more than 200 mg/dL in a nonstressed, ambulatory subject supports the diagnosis of Diabetes Mellitus. Serum or plasma potassium me asurement (moles/volume)Ordered By: Leigha Nelson on 08-31-2022 Potassium [Moles/Vol] 3.4 mmol/L 3.5-5.1 [facility] Serum or plasma sodium measu rement (moles/volume)Ordered By: Leigha Nelson on 08-31-2022 Sodium [Moles/Vol] 135 mmol/L 136-146 [facility] Serum or plasma total biliru bin measurement (mass/volume)Ordered By: Leigha Bangurajimena on 08-31-2022 Bilirubin [Mass/Vol] 0.8 mg/dL 0.3-1.2 [facility] Serum or plasma total carbon dioxide measurement (moles/volume)Ordered By: Leigha Bangurajimena on 08-31-2022 CO2 [Moles/Vol] 31.0 mmol/L 22.0-30.0 [facility] Serum or plasma urea nitroge n measurement (mass/volume)Ordered By: Leigha Talamantesrenée on 08-31-2022 Urea nitrogen [Mass/Vol] 40 mg/dL 9- [facility] T3, TOTAL (TRIIODOTHYRONINE) on 08-31-2022 T3, TOTAL 42 ng/dL Critically low 71-180 [facility] Comment on above: Performed By: #### F T4, PSASC #### [facility] [address] [address] [address] Benito Schwartz FREE T4on 08-30-2022 Free T4 [Mass/Vol] 0.11 ng/dL Critically low 0.76-1.46 [facility] Comment on above: Performed By: #### V ITAD #### [facility] [address] [address] [address] Benito Schwartz TSHon 08-30-2022 TSH 121.477 uIU/mL Critically high 0.358-3.740 [facility] Comment on above: Performed By: #### F T4 #### [facility] [address] [place] [address] Dr. Benito Schwartz Glucose Glucometer (BldC) [M ass/Vol]Ordered By: Ramesh Rascon on 07-21-2022 Glucose [Mass/Vol] 105 mg/dL [facility] Comment on above: Random Glucose Refer ence Range is dependent on time and content of last meal. Glucose of more than 200 mg/dL in a nonstressed, ambulatory subject supports the diagnosis of Diabetes Mellitus. T3, TOTAL (TRIIODOTHYRONINE) on 07-21-2022 T3, TOTAL 56 ng/dL Critically low 71-180 [facility] Comment on above: Performed By: #### F T4, PSASC #### [facility] [address] [address] [address] Benito Schwartz FREE T4on 07-20-2022 Free T4 [Mass/Vol] 0.48 ng/dL Critically low 0.76-1.46 [facility] Comment on above: Performed By: #### V ITAD #### [facility] [address] [place] [address] Dr. Benito Schwartz TSHon 07-20-2022 TSH 67.173 uIU/mL Critically high 0.358-3.740 [facility] Comment on above: Performed By: #### U RTPCR #### [facility] [address] [place] [address] Dr. Benito Schwartz COVID-19 SOFIAOrdered By: Lucia Rascon on 07-19-2022 SARS-CoV+SARS-CoV-2 (COVID-19) Ag IA.rapid Ql (Resp) Negative Negative [facility] Comment on above: This is a duplicate Lindsay SARS Antigen (MADHU) result to be used for statistical tracking purpose only. No Panel InformationOrdered By: Ramesh Rascon on 07-19-2022 SARS Antigen (LFIA) [facility] Albumin [Mass/volume] in Ser um or PlasmaOrdered By: Chivo Keller on 05-31-2022 Albumin [Mass/Vol] 3.9 g/dL 3.2-5.5 [facility] Basophils Auto (Bld) [#/Vol] Ordered By: Chivo Keller on 05-31-2022 Basophils (Bld) [#/Vol] 0.1 10*3/uL 0.0-0.[address] [facility] Basophils/100 WBC Auto (Bld) Ordered By: Chivo Keller on 05-31-2022 Basophils/100 WBC (Bld) 0.8 % . [facility] Blood hemoglobin measurement (mass/volume)Ordered By: Chivo Keller on 05-31-2022 Hemoglobin (Bld) [Mass/Vol] 11.1 g/dL 13.0-17.[address] [facility] Blood leukocytes automated c ount (number/volume)Ordered By: Chivo Keller on 05-31-2022 WBC (Bld) [#/Vol] 8.8 10*3/uL 4.5-11.0 [facility] CT biopsyOrdered By: Danuta Kelly on 05-31-2022 Transferrin [Mass/Vol] 210 mg/dL 180-380 [facility] Creatinine (Bld) [Mass/Vol]O rdered By: Nikunj Shultz on 05-31-2022 Creatinine [Mass/Vol] 2.4 mg/dL High 0.6-1.3 [facility] Comment on above: ER/ESD physician is [...] Creatinine [Mass/Vol] 2.23 mg/dL 0.64-1.27 [facility] Eosinophils Auto (Bld) [#/Vo l]Ordered By: [...] on 05-31-2022 Ferritin [Mass/Vol] 96.9 ng/mL 23.9-336.2 [facility] Folate [Mass/volume] in Seru m or PlasmaOrdered By: Danuta Kelly on 05-31-2022 Folate [Mass/Vol] 17.7 ng/mL >5.9 [facility] Comment on above: Folate reference ran ge: >5.9 ng/ml The WHO technical consultation on folate and vitamin b12 deficiencies has determined that folate concentrations less than 4 ng/ml are considered deficient. Folate reference ran ge: >5.9 ng/mlThe WHO technical consultation on folate and vitamin [id number] has determined that folate concentrations lessthan 4 ng/ml are considered deficient. Globulin Calc (S) [Mass/Vol] Ordered By: Chivo Keller on 05-31-2022 Globulin (S) [Mass/Vol] 3.4 g/dL [facility] Hematocrit Auto (Bld) [Volum e [...] (RBC) [Mass/Vol] 33.1 g/dL 32.5-35.6 [facility] MCV Auto (RBC) [Entitic vol] Ordered By: Chivo Keller on 05-31-2022 MCV (RBC) [Entitic vol] 88.2 fL 83.5-101 [facility] Monocytes Auto (Bld) [#/Vol] Ordered By: Chivo Keller on 05-31-2022 Monocytes (Bld) [#/Vol] 0.7 10*3/uL 0.0-0.[address] [facility] Monocytes/100 WBC Auto (Bld) Ordered By: Chivo Keller on 05-31-2022 Monocytes/100 WBC (Bld) 8.0 % . [facility] Neutrophils Auto (Bld) [#/Vo l]Ordered By: [...] on 05-31-2022 Protein [Mass/Vol] 7.3 g/dL 6.1-7.9 [facility] RBC Auto (Bld) [#/Vol]Ordere d By: Chivo Keller on 05-31-2022 RBC (Bld) [#/Vol] 3.81 10*6/uL 3.90-5.60 [facility] Serum or plasma alanine paige otransferase measurement without P-5'-P (enzymatic activiOrdered By: Chivo Keller on 05-31-2022 ALT No additional P-5'-P [Catalytic activity/Vol] 17 U/L 10-[address] [facility] Serum or plasma albumin/glob ulin mass [...] on 05-31-2022 Calcium [Mass/Vol] 9.5 mg/dL 8.2-10.2 [facility] Serum or plasma carcinoembry onic antigen measurement (mass/volume)Ordered By: Chivo Keller on 05-31-2022 Carcinoembryonic Ag [Mass/Vol] 1.8 ng/mL 0.0-3.[address] [facility] Serum or plasma chloride ernestine surement (moles/volume)Ordered By: Chivo Keller on 05-31-2022 Chloride [Moles/Vol] 101 mmol/L 95-114 [facility] Serum or plasma glucose darshan urement (mass/volume)Ordered By: Chivo Keller on 05-31-2022 Glucose [Mass/Vol] 108 mg/dL 70-100 [facility] Comment on above: ADA recommended refe [...] Potassium [Moles/Vol] 4.4 mmol/L 3.5-5.1 [facility] Serum or plasma sodium measu rement (moles/volume)Ordered By: Chivo Keller on 05-31-2022 Sodium [Moles/Vol] 140 mmol/L 136-146 [facility] Serum or plasma total biliru bin measurement (mass/volume)Ordered By: Chivo Keller on 05-31-2022 Bilirubin [Mass/Vol] 0.5 mg/dL 0.3-1.2 [facility] Serum or plasma total carbon dioxide measurement (moles/volume)Ordered By: Chivo Keller on 05-31-2022 CO2 [Moles/Vol] 29.7 mmol/L 22.0-30.0 [facility] Serum or plasma urea nitroge n measurement (mass/volume)Ordered By: Chivo Keller on 05-31-2022 Urea nitrogen [Mass/Vol] 42 mg/dL [address]- [facility] CBC W/DIFFon 05-26-2022 ABS IMM GRANS 0.1 10*3/uL Normal 0.0-0.2 [facility] Comment on above: Performed By: #### 5 0103 #### [facility] [address] [place] [address], [facility] ABS NEUTROPHILS 6.4 10*3/uL Normal 1.6-7.6 [facility] Comment on above: Performed By: #### 5 0103 #### [facility] [address] [facility] [place] [address], [facility] Basophils (Bld) [#/Vol] 0.0 10*3/uL Normal 0.0-0.2 [facility] Comment on above: Performed By: #### 5 0103 #### [facility] [address] [place] [place] [address], [facility] Basophils/100 WBC (Bld) 0.4 % Normal 0.0-1.0 T mel[facility] Comment on above: Performed By: #### 5 0103 #### [facility] [address] [place] [address], [facility] Eosinophils (Bld) [#/Vol] 0.4 10*3/uL Normal 0.0-0.5 [facility] Comment on above: Performed By: #### 5 0103 #### [facility] [address] [place] [address], [facility] Eosinophils/100 WBC (Bld) 4.3 % Normal 0.0-6.0 [facility] Comment on above: Performed By: #### 5 0103 #### [facility] [address] [facility]. [address] Erythrocyte distribution width (RBC) [Ratio] 15.9 % High 11.5-15.0 [facility] Comment on above: Performed By: #### 5 0103 #### [facility] [address] [facility] [address] Hematocrit (Bld) [Volume fraction] 31.6 % Low 39.0-50.0 [facility] Comment on above: Performed By: #### 5 0103 #### [facility] [address] [facility]. [address] Hemoglobin (Bld) [Mass/Vol] 10.0 g/dL Low 13.0-17.0 [facility] Comment on above: Performed By: #### 5 0103 #### [facility] [address] [place] [address], [facility] IMMATURE GRANS 0.8 % Normal 0.0-1.0 [facility] Comment on above: Performed By: #### 5 0103 #### [facility] [address] [place] [address], [facility] Lymphocytes (Bld) [#/Vol] 1.6 10*3/uL Normal 1.2-4.0 [facility] Comment on above: Performed By: #### 5 3 #### [facility] [address] [facility] [place] [address], [facility] Lymphocytes/100 WBC (Bld) 16.8 % Low 20.0-45.0 [facility] Comment on above: Performed By: #### 5 0103 #### [facility] [address] [place] [address], [facility] MCH (RBC) [Entitic mass] 28.7 pg Normal 27.0-33.0 [facility] Comment on above: Performed By: #### 5 0103 #### [facility] [address] [facility] [place] [address], [facility] MCHC (RBC) [Mass/Vol] 31.6 g/dL Low 32.0-35.0 [facility] Comment on above: Performed By: #### 5 0103 #### [facility] [address] [place] [address], [facility] MCV (RBC) [Entitic vol] 90.5 fL Normal 82.0-98.0 T mela [facility] Comment on above: Performed By: #### 5 0103 #### [facility] [address] [facility] [place] [address], [facility] Monocytes (Bld) [#/Vol] 0.8 10*3/uL Normal 0.1-1.0 [facility] Comment on above: Performed By: #### 5 0103 #### [facility] [address] [facility] [place] [address], [facility] MONOS 9.0 % Normal 5.0-12.0 [facility] Comment on above: Performed By: #### 5 0103 #### [facility] [address] [place] [id number], [facility] Neutrophils/100 WBC (Bld) 68.7 % Normal 40.0-72.0 [facility] Comment on above: Performed By: #### 5 3 #### [facility] [address] [place] [id number], [facility] Nucleated RBC/100 WBC (Bld) [Ratio] 0 % Normal 0-0 [facility] Comment on above: Performed By: #### 5 0103 #### [facility] [address] [place] [place] [address], [facility] PLAT CNT 292 10*3/uL Normal 150-400 [facility] Comment on above: Performed By: #### 5 0103 #### [facility] [address] [facility] [place] [address], [facility] RBC (Bld) [#/Vol] 3.49 10*6/uL Low 4.20-5.70 [facility] Comment on above: Performed By: #### 5 0103 #### [facility] [address] [facility] [place] [address], [facility] WBC (Bld) [#/Vol] 9.29 10*3/uL Normal 4.00-10.60 [facility] Comment on above: Performed By: #### 5 0103 #### [facility] [address] [facility] [place] [address], [facility] IMMUNOGLOBULIN Jovany 2 [place] Normal [facility] Comment on above: Result Comment: Test Performed by [employer] [address] [place] [address] - Released 05/27/2022 12:45 IMMUNOGLOBULIN E 308 IU/mL High <101 [facility] THYROID-STIMULATING IMMUNOGL OBULINon 05-14-2022 Thyroid Sim Immunoglobulin <0.10 Normal 0.00-0.55 [facility] Comment on above: Performed By: #### C BC #### [facility] [address] [place] [address] [address] Bentio Schwartz THYROTROPIN RECEPTOR ABon Thyrotropin Receptor Ab, Serum <1.10 Normal 0.00-1.75 [facility] Comment on above: Performed By: #### C BC #### [facility] [address] [place] [address] [address] Benito Schwartz PTH INTACTon 05-13-2022 PTH, Intact 18 pg/mL Normal 15-65 [facility] Comment on above: Performed By: #### C BC #### [facility] [address] [place] [address] [address] Benito Schwartz T3, TOTAL (TRIIODOTHYRONINE) on 05-13-2022 T3, TOTAL 80 ng/dL Normal 71-180 [facility] Comment on above: Performed By: #### U RTPCR #### [facility] [address] [place] [address] [address] Benito Schwartz VIT D 25-OH [facility]ABC[facility]on 2021 Vitamin D, 25-Hydroxy 84.3 ng/mL Normal 30.0-100.0 [facility] Comment on above: Result Comment: Randi min D deficiency has been defined by the [place] [employer] and an Endocrine Society practice guideline as a level of serum 25-OH vitamin D less than 20 ng/mL (1,2). The Endocrine Society went on to further define vitamin D insufficiency as a level between 21 and 29 ng/mL (2). 1. IOM ([place] [employer]). 2010. Dietary reference intakes for calcium and D. [place]: The National Academies Press. 2. Annamarie MF, Milena [place], Sweta-Andrea BURGESS, et al. Evaluation, treatment, and prevention of vitamin D deficiency: an Endocrine Society clinical practice guideline. JCEM. 2010; 96(7):1911-30. Performed By: #### U RTPCR #### [facility] [address] [place] [address] [address] Benito Schwartz CBC AUTO DIFFon 05-12-2022 BASO # 0.0 103/ul Normal 0.0-0.1 [facility] Comment on above: Performed By: #### C BC #### [facility] [address] [place] [address] [address] Benito Schwartz Basophils/100 WBC (Bld) 0.2 % Normal 0.2-2.0 [facility] Comment on above: Performed By: #### C BC #### [facility] [address] [place] [address] [address] Benito Schwartz EO # 0.4 103/ul Normal 0.0-0.7 [facility] Comment on above: Performed By: #### C BC #### [facility] [address] [place] [address] [address] Benito Schwartz Eosinophils/100 WBC (Bld) 4.4 % Normal 0.9-7.0 [facility] Comment on above: Performed By: #### C BC #### [facility] [address] [place] [address] [address] Benito Schwartz Erythrocyte distribution width (RBC) [Ratio] 15.0 % Normal 11.0-15.0 [facility] Comment on above: Performed By: #### C BC #### [facility] [address] [place] [address] [address] Benito Schwartz Hematocrit (Bld) [Volume fraction] 29.8 % Critically low 42.0-54.0 [facility] Comment on above: Performed By: #### C BC #### [facility] [address] [place] [address] Dr. Benito Schwartz Hemoglobin (Bld) [Mass/Vol] 9.7 g/dL Critically low 14.0-18.0 [facility] Comment on above: Performed By: #### C BC #### [facility] [address] [place] [address] Dr. Benito Schwartz IG # 0.06 10e3/ul Critically high 0.00-0.03 [facility] Comment on above: Performed By: #### C BC #### [facility] [address] [place] [address] Dr. Benito Schwartz IG % 0.7 % Critically high 0.0-0.5 [facility] Comment on above: Performed By: #### C BC #### [facility] [address] [place] [address] [address] Benito Schwartz LYMPH # 1.9 103/ul Normal 1.2-3.8 [facility] Comment on above: Performed By: #### C BC #### [facility] [address] [place] [address] Dr. Benito Schwartz Lymphocytes/100 WBC (Bld) 21.1 % Normal 20.5-60.0 [facility] Comment on above: Performed By: #### C BC #### [facility] [address] [place] [address] Dr. Benito Schwartz MANUAL DIFF REQ NO Normal [facility] Comment on above: Performed By: #### C BC #### [facility] [address] [place] [address] Dr. Benito Schwartz MCH (RBC) [Entitic mass] 29.0 pg Normal 25.9-34.0 [facility] Comment on above: Performed By: #### C BC #### [facility] [address] [place] [address] Dr. Benito Schwartz MCHC (RBC) [Mass/Vol] 32.6 g/dL Normal 29.9-35.2 [facility] Comment on above: Performed By: #### C BC #### [facility] [address] [place] [address] Dr. Benito Schwartz MCV (RBC) [Entitic vol] 89.0 fL Normal 80.0-94.0 [facility] Comment on above: Performed By: #### C BC #### [facility] [address] [place] [address] Dr. Benito Schwartz MONO # 0.9 103/ul Critically high 0.3-0.8 [facility] Comment on above: Performed By: #### C BC #### [facility] [address] [place] [address] Dr. Benito Schwartz Monocytes/100 WBC (Bld) 9.9 % Normal 1.7-12.0 [facility] Comment on above: Performed By: #### C BC #### [facility] [address] [place] [address] Dr. Benito Schwartz NEUT # 5.8 103/ul Normal 1.4-6.5 [facility] Comment on above: Performed By: #### C BC #### [facility] [address] [place] [address] Dr. Benito Schwartz Neutrophils/100 WBC (Bld) 63.7 % Normal 43.0-75.0 [facility] Comment on above: Performed By: #### C BC #### [facility] [address] [place] [address] [address] Benito Schwartz Platelet mean volume (Bld) [Entitic vol] 8.7 fL Critically low 9.5-13.5 [facility] Comment on above: Performed By: #### C BC #### [facility] [address] [place] [address] Dr. Benito Schwartz PLT 253 103/ul Normal 150-450 [facility] Comment on above: Performed By: #### C BC #### [facility] [address] [place] [address] Dr. Benito Schwartz RBC 3.35 106/ul Critically low 4.70-6.10 [facility] Comment on above: Performed By: #### C BC #### [facility] [address] [place] [address] Dr. Benito Schwartz WBC 9.1 103/ul Normal 4.0-11.0 [facility] Comment on above: Performed By: #### C BC #### [facility] [address] [place] [address] Dr. Benito Schwartz FREE T4on 05-12-2022 Free T4 [Mass/Vol] 1.25 ng/dL Normal 0.76-1.46 [facility] Comment on above: Performed By: #### V ITAD #### [facility] [address] [place] [address] Dr. Benito Schwartz MAGNESIUMon 05-12-2022 Magnesium [Mass/Vol] 2.1 mg/dL Normal 1.8-2.4 [facility] Comment on above: Performed By: #### F T4 #### [facility] [address] [place] [address] Dr. Benito Schwartz PHOSPHORUSon 05-12-2022 Phosphate [Mass/Vol] 4.2 mg/dL Normal 2.6-4.7 [facility] Comment on above: Performed By: #### F T4 #### [facility] [address] [place] [address] Dr. Benito Schwartz PROF CHEM 8 (BAS METB)on Anion gap [Moles/Vol] 13.4 mmol/L Normal [facility] Comment on above: Performed By: #### F T4 #### [facility] [address] [place] [address] [address] Benito Schwartz Calcium [Mass/Vol] 9.1 mg/dL Normal 8.5-10.1 [facility] Comment on above: Performed By: #### F T4 #### [facility] [address] [place] [address] [address] Benito Schwartz Chloride [Moles/Vol] 103 mmol/L Normal 98-107 [facility] Comment on above: Performed By: #### F T4 #### [facility] [address] [place] [address] Dr. Benito Schwartz CO2 [Moles/Vol] 28.6 mmol/L Normal 21.0-32.0 [facility] Comment on above: Performed By: #### F T4 #### [facility] [address] [place] [address] [address] Benito Schwartz Creatinine [Mass/Vol] 2.30 mg/dL Critically high 0.70-1.30 [facility] Comment on above: Performed By: #### F T4 #### [facility] [address] [place] [address] Dr. Benito Schwartz EGFR-AF WALLISIAN 33 mL/min/1.73m2 Critically low >=60 [facility] Comment on above: Performed By: #### F T4 #### [facility] [address] [place] [address] [address] Benito Schwartz EGFR-NON AF WALLISIAN 27 mL/min/1.73m2 Critically low >=60 [facility] Comment on above: Performed By: #### F T4 #### [facility] [address] [place] [address] Dr. Benito Schwartz Glucose [Mass/Vol] 123 mg/dL Critically high 74-106 [facility] Comment on above: Performed By: #### F T4 #### [facility] [address] [place] [address] Dr. Benito Schwartz Potassium [Moles/Vol] 4.0 mmol/L Normal 3.5-5.1 [facility] Comment on above: Performed By: #### F T4 #### [facility] [address] [place] [address] Dr. Benito Schwartz Sodium [Moles/Vol] 141 mmol/L Normal 136-145 [facility] Comment on above: Performed By: #### F T4 #### [facility] [address] [place] [address] Dr. Benito Schwartz Urea nitrogen [Mass/Vol] 51.0 mg/dL Critically high 7.0-18.0 [facility] Comment on above: Performed By: #### F T4 #### [facility] [address] [place] [address] Dr. Benito Schwartz Urea nitrogen/Creatinine [Mass ratio] 22.2 mg/mg Normal [facility] Comment on above: Performed By: #### F T4 #### [facility] [address] [place] [address] Dr. Benito Schwartz TSHon 05-12-2022 TSH Qn m[IU]/L Critically low 0.358-3.740 [facility] Comment on above: Performed By: #### C BC #### [facility] [address] [place] [address] Dr. Benito Schwartz UA RANDOMon 05-12-2022 Bilirubin Ql (U) Negative Normal NEGATIVE [facility] Comment on above: Performed By: #### U RTPCR #### [facility] [address] [place] [address] Dr. Benito Schwartz Clarity (U) CLEAR Normal CLEAR [facility] Comment on above: Performed By: #### U RTPCR #### [facility] [address] [place] [address] Dr. Benito Schwartz Color (U) LT. YELLOW Normal YELLOW [facility] Comment on above: Performed By: #### U RTPCR #### [facility] [address] [place] [address] Dr. Benito Schwartz Glucose Ql (U) Negative Normal NEGATIVE [facility] Comment on above: Performed By: #### U RTPCR #### [facility] [address] [place] [address] Dr. Benito Schwartz Hemoglobin Ql (U) Negative Normal NEGATIVE [facility] Comment on above: Performed By: #### U RTPCR #### [facility] [address] [place] [address] Dr. Benito Schwartz Ketones Ql (U) Negative Normal NEGATIVE [facility] Comment on above: Performed By: #### U RTPCR #### [facility] [address] [place] [address] Dr. Benito Schwartz LEUKOCYTES Negative Normal NEGATIVE [facility] Comment on above: Performed By: #### U RTPCR #### [facility] [address] [place] [address] Dr. Benito Schwartz Nitrite Ql (U) Negative Normal NEGATIVE [facility] Comment on above: Performed By: #### U RTPCR #### [facility] [address] [place] [address] Dr. Benito Schwartz pH (U) 5.5 [pH] Normal 5-9 [facility] Comment on above: Performed By: #### U RTPCR #### [facility] [address] [place] [address] Dr. Benito Schwartz SPEC GRAVITY 1.010 Normal 1.005-<=1.02 5 [facility] Comment on above: Performed By: #### U RTPCR #### [facility] [address] [place] [address] Dr. Benito Schwartz UA PROTEIN Negative Normal NEGATIVE/ TRACE [facility] Comment on above: Performed By: #### U RTPCR #### [facility] [address] [place] [address] Dr. Benito Schwartz Urobilinogen Qn (U) 0.2 {Jagruti'U}/dL Normal 0.2 - 1. 0 [facility] Comment on above: Performed By: #### U RTPCR #### [facility] [address] [place] [address] Dr. Benito Schwartz URINE T PROTEIN CREAT RATIOo n 05-12-2022 Protein (U) [Mass/Vol] 18.3 mg/dL Critically high <=12.0 [facility] Comment on above: Performed By: #### U RTPCR #### [facility] [address] [place] [address] Dr. Benito Schwartz UR PROT CREAT RAT 0.39 Normal [facility] Comment on above: Performed By: #### U RTPCR #### [facility] [address] [place] [address] Dr. Benito Schwartz URINE CREAT 47.44 mg/dL Normal 20.00-300.00 [facility] Comment on above: Performed By: #### U RTPCR #### [facility] [address] [place] [address] Dr. Benito Schwartz HEMOGLOBINon 05-10-2022 Hemoglobin (Bld) [Mass/Vol] 9.6 g/dL Critically low 14.0-18.0 [facility] Comment on above: Performed By: #### F T4, PSASC #### [facility] [address] [place] [address] Dr. Benito Schwartz NM THY SCAN W [...] JJ HI Date: 2022-04-28 09:05 Normal [facility] T3, TOTAL (TRIIODOTHYRONINE) on 04-09-2022 T3, TOTAL 167 ng/dL Normal 71-180 [facility] Comment on above: Performed By: #### B 12FOL, FETIBC #### [facility] [address] [place] [address] Dr. Benito Schwartz FREE T3on 04-08-2022 FREE T3 6.07 pg/mlL Critically high 2.18-3.98 [facility] Comment on above: Performed By: #### T SH, FT3, BMP #### [facility] [address] [place] [address] Dr. Benito Schwartz FREE T4on 04-08-2022 Free T4 [Mass/Vol] 2.62 ng/dL Critically high 0.76-1.46 [facility] Comment on above: Performed By: #### T KRISTOPHER, FT3, BMP #### [facility] [address] [place] [address] Dr. Benito Schwartz PROF CHEM 8 (BAS METB)on Anion gap [Moles/Vol] 13.5 mmol/L Normal [facility] Comment on above: Performed By: #### B 12FOL, FETIBC #### [facility] [address] [place] [address] Dr. Benito Schwartz Calcium [Mass/Vol] 9.9 mg/dL Normal 8.5-10.1 [facility] Comment on above: Performed By: #### B 12FOL, FETIBC #### [facility] [address] [place] [address] Dr. Benito Schwartz Chloride [Moles/Vol] 105 mmol/L Normal 98-107 [facility] Comment on above: Performed By: #### B 12FOL, FETIBC #### [facility] [address] [place] [address] Dr. Benito Schwartz CO2 [Moles/Vol] 26.5 mmol/L Normal 21.0-32.0 [facility] Comment on above: Performed By: #### B 12FOL, FETIBC #### [facility] [address] [place] [address] Dr. Benito Schwartz Creatinine [Mass/Vol] 2.33 mg/dL Critically high 0.70-1.30 [facility] Comment on above: Performed By: #### B 12FOL, FETIBC #### [facility] [address] [place] [address] Dr. Benito Schwartz EGFR-AF WALLISIAN 33 mL/min/1.73m2 Critically low >=60 [facility] Comment on above: Performed By: #### B 12FOL, FETIBC #### [facility] [address] [place] [address] [address] Benito Schwartz EGFR-NON AF WALLISIAN 27 mL/min/1.73m2 Critically low >=60 [facility] Comment on above: Performed By: #### B 12FOL, FETIBC #### [facility] [address] [place] [address] [address] Benito Schwartz Glucose [Mass/Vol] 104 mg/dL Normal 74-106 [facility] Comment on above: Performed By: #### B 12FOL, FETIBC #### [facility] [address] [place] [address] Dr. Benito Schwartz Potassium [Moles/Vol] 5.0 mmol/L Normal 3.5-5.1 [facility] Comment on above: Performed By: #### B 12FOL, FETIBC #### [facility] [address] [place] [address] Dr. Benito Schwartz Sodium [Moles/Vol] 140 mmol/L Normal 136-145 [facility] Comment on above: Performed By: #### B 12FOL, FETIBC #### [facility] [address] [place] [address] Dr. Benito Schwartz Urea nitrogen [Mass/Vol] 60.0 mg/dL Critically high 7.0-18.0 [facility] Comment on above: Performed By: #### B 12FOL, FETIBC #### [facility] [address] [place] [address] Dr. Benito Schwartz Urea nitrogen/Creatinine [Mass ratio] 25.8 mg/mg Normal [facility] Comment on above: Performed By: #### B 12FOL, FETIBC #### [facility] [address] [place] [address] Dr. Benito Schwartz TSHon 04-08-2022 TSH Qn m[IU]/L Critically low 0.358-3.740 [facility] Comment on above: Performed By: #### T SH, FT3, BMP #### [facility] [address] [place] [address] [address] Benito Schwartz BASIC METABOLIC PANELon 03-16 Calcium [Mass/Vol] 9.1 mg/dL Normal 8.6-10.3 [facility] Comment on above: Order Comment: No: D o not add to previous draw Performed By: #### 1 69, [id number] #### [facility] [address] [place] [place] [address], [place] Chloride [Moles/Vol] 106 mmol/L Normal 98-107 [facility] Comment on above: Order Comment: No: D o not add to previous draw Performed By: #### 1 69, 55526 #### [facility] [address] [place] [address], [place] CO2 [Moles/Vol] 25 mmol/L Normal 21-31 [facility] Comment on above: Order Comment: No: D o not add to previous draw Performed By: #### 1 69, 64004 #### [facility] [address] [place] [address], [place] Creatinine [Mass/Vol] 2.12 mg/dL High 0.70-1.30 [facility] Comment on above: Order Comment: No: D o not add to previous draw Performed By: #### 1 69, 95577 #### [facility] [address] [place] [address], [place] eGFR- 37 ml/min/1.73sq m Abnormal >60 [facility] Comment on above: Order Comment: No: D o not add to previous draw Result Comment: Calc ulation may not be valid for patients over 70 years Performed By: #### 1 69, 17599 #### [facility] [address] [place] [address], [place] eGFR- non- 30 ml/min/1.73sq m Abnormal >60 [facility] Comment on above: Order Comment: No: D o not add to previous draw Result Comment: Calc ulation may not be valid for patients over 70 years Performed By: #### 1 69, 67189 #### [facility] [address] [place] [place] [address], [place] Glucose [Mass/Vol] 93 mg/dL Normal 70-100 [facility] Comment on above: Order Comment: No: D o not add to previous draw Performed By: #### 1 69, 96234 #### [facility] [address] [place] [address], [place] Potassium [Moles/Vol] 3.9 mmol/L Normal 3.5-5.1 [facility] Comment on above: Order Comment: No: D o not add to previous draw Performed By: #### 1 69, 12079 #### [facility] [address] [place] [address], [place] Sodium [Moles/Vol] 141 mmol/L Normal 136-145 [facility] Comment on above: Order Comment: No: D o not add to previous draw Performed By: #### 1 69, 24155 #### [facility] [address] [place] [address], [place] Urea nitrogen [Mass/Vol] 56 mg/dL High 7-25 [facility] Comment on above: Order Comment: No: D o not add to previous draw Performed By: #### 1 69, 15142 #### [facility] [address] [place] [address], [place] CBC COMPLETE BLOOD COUNTon 0 - Erythrocyte distribution width (RBC) [Ratio] 13.6 % Normal 11.5-15.0 [facility] Comment on above: Order Comment: No: D o not add to previous draw Performed By: #### 5 0103 #### [facility] [address] [place] [address], [place] Hematocrit (Bld) [Volume fraction] 26.2 % Low 39.0-50.0 [facility] Comment on above: Order Comment: No: D o not add to previous draw Performed By: #### 5 0103 #### [facility] [address] [place] [address], [facility] Hemoglobin (Bld) [Mass/Vol] 8.7 g/dL Low 13.0-17.0 [facility] Comment on above: Order Comment: No: D o not add to previous draw Performed By: #### 5 0103 #### [facility] [address] [place] [address], [facility] MCH (RBC) [Entitic mass] 29.3 pg Normal 27.0-33.0 [facility] Comment on above: Order Comment: No: D o not add to previous draw Performed By: #### 5 0103 #### [facility] [address] MCHC (RBC) [Mass/Vol] 33.2 g/dL Normal 32.0-35.0 [facility] Comment on above: Order Comment: No: D o not add to previous draw Performed By: #### 5 0103 #### [facility] [address] [place] [address], [facility] MCV (RBC) [Entitic vol] 88.2 fL Normal 82.0-98.0 [facility] Comment on above: Order Comment: No: D o not add to previous draw Performed By: #### 5 0103 #### [facility] [address] [place] [address], [facility] Nucleated RBC/100 WBC (Bld) [Ratio] 0 % Normal 0-0 [facility] Comment on above: Order Comment: No: D o not add to previous draw Performed By: #### 5 0103 #### [facility] [address] [place] [address], [facility] PLAT CNT 190 10*3/uL Normal 150-400 [facility] Comment on above: Order Comment: No: D o not add to previous draw Performed By: #### 5 0103 #### [facility] [address] [place] [address], [facility] RBC (Bld) [#/Vol] 2.97 10*6/uL Low 4.20-5.70 [facility] Comment on above: Order Comment: No: D o not add to previous draw Performed By: #### 5 0103 #### [facility] [address] [place] [place] [address], [facility] WBC (Bld) [#/Vol] 5.20 10*3/uL Normal 4.00-10.60 [facility] Comment on above: Order Comment: No: D o not add to previous draw Performed By: #### 5 0103 #### [facility] [address] [facility] [address] MAGNESIUM BLOODon 04-02-2022 Magnesium [Mass/Vol] 2.2 mg/dL Normal 1.9-2.7 [facility] Comment on above: Order Comment: No: D o not add to previous draw Performed By: #### 1 0070, 43450 #### [facility] [address] [facility] [place] [address], [facility] POC GLUCOSE LABon 04-02-2022 Glucose [Mass/Vol] 99 mg/dL Normal 70-100 [facility] Comment on above: Performed By: #### 5 0608 #### [facility] [address] [facility] [place] [address], [facility] BASIC METABOLIC PANELon 03-16 Calcium [Mass/Vol] 9.1 mg/dL Normal 8.6-10.3 [facility] Comment on above: Order Comment: No: D o not add to previous draw Performed By: #### 5 0608 #### [facility] [address] [place] [address], [place] Chloride [Moles/Vol] 106 mmol/L Normal 98-107 [facility] Comment on above: Order Comment: No: D o not add to previous draw Performed By: #### 5 0608 #### [facility] [address] [place] [address], [place] CO2 [Moles/Vol] 25 mmol/L Normal 21-31 [facility] Comment on above: Order Comment: No: D o not add to previous draw Performed By: #### 5 0608 #### [facility] [address] [place] [address], [place] Creatinine [Mass/Vol] 2.07 mg/dL High 0.70-1.30 [facility] Comment on above: Order Comment: No: D o not add to previous draw Performed By: #### 5 0608 #### [facility] [address] [place] [address], [facility] eGFR- 38 ml/min/1.73sq m Abnormal >60 [facility] Comment on above: Order Comment: No: D o not add to previous draw Result Comment: Calc ulation may not be valid for patients over 70 years Performed By: #### 5 0608 #### [facility] [address] [place] [address], [place] eGFR- non- 31 ml/min/1.73sq m Abnormal >60 [facility] Comment on above: Order Comment: No: D o not add to previous draw Result Comment: Calc ulation may not be valid for patients over 70 years Performed By: #### 5 0608 #### [facility] [address] [place] [address], [place] Glucose [Mass/Vol] 94 mg/dL Normal 70-100 [facility] Comment on above: Order Comment: No: D o not add to previous draw Performed By: #### 5 0608 #### [facility] [address] [place] [address], [place] Potassium [Moles/Vol] 3.9 mmol/L Normal 3.5-5.1 [facility] Comment on above: Order Comment: No: D o not add to previous draw Performed By: #### 5 0608 #### [facility] [address] [place] [address], [place] Sodium [Moles/Vol] 144 mmol/L Normal 136-145 [facility] Comment on above: Order Comment: No: D o not add to previous draw Performed By: #### 5 0608 #### [facility] [address] [place] [address], [facility] Urea nitrogen [Mass/Vol] 54 mg/dL High 7-25 [facility] Comment on above: Order Comment: No: D o not add to previous draw Performed By: #### 5 0608 #### [facility] [address] [place] [id number], [facility] CBC COMPLETE BLOOD COUNTon 0 - Erythrocyte distribution width (RBC) [Ratio] 13.5 % Normal 11.5-15.0 [facility] Comment on above: Order Comment: No: D o not add to previous draw Performed By: #### 5 0608 #### [facility] [address] [place] [address], [facility] Hematocrit (Bld) [Volume fraction] 27.5 % Low 39.0-50.0 [facility] Comment on above: Order Comment: No: D o not add to previous draw Performed By: #### 5 0608 #### [facility] [address] [place] [address], [place] Hemoglobin (Bld) [Mass/Vol] 8.9 g/dL Low 13.0-17.0 [facility] Comment on above: Order Comment: No: D o not add to previous draw Performed By: #### 5 0608 #### [facility] [address] [place] [address], [place] MCH (RBC) [Entitic mass] 29.2 pg Normal 27.0-33.0 [facility] Comment on above: Order Comment: No: D o not add to previous draw Performed By: #### 5 0608 #### [facility] [address] [place] [address], [facility] MCHC (RBC) [Mass/Vol] 32.4 g/dL Normal 32.0-35.0 [facility] Comment on above: Order Comment: No: D o not add to previous draw Performed By: #### 5 0608 #### [facility] [address] [place] [id number], [facility] MCV (RBC) [Entitic vol] 90.2 fL Normal 82.0-98.0 T [facility] Comment on above: Order Comment: No: D o not add to previous draw Performed By: #### 5 0608 #### [facility] [address] [facility] [place] [address], [facility] Nucleated RBC/100 WBC (Bld) [Ratio] 0 % Normal 0-0 [facility] Comment on above: Order Comment: No: D o not add to previous draw Performed By: #### 5 0608 #### [facility] [address] [place] [id number], [facility] PLAT CNT 213 10*3/uL Normal 150-400 [facility] Comment on above: Order Comment: No: D o not add to previous draw Performed By: #### 5 0608 #### [facility] [address] [facility] [place] [id number], [facility] RBC (Bld) [#/Vol] 3.05 10*6/uL Low 4.20-5.70 [facility] Comment on above: Order Comment: No: D o not add to previous draw Performed By: #### 5 0608 #### [facility] [address] [place] [id number], [facility] WBC (Bld) [#/Vol] 6.02 10*3/uL Normal 4.00-10.60 [facility] Comment on above: Order Comment: No: D o not add to previous draw Performed By: #### 5 0608 #### [facility] [address] [place] [address], [facility] Cardiovascular Lab Reporton 04-01-2022 Cardiovascular Lab Report [facility] Patient Name: Nas Ren [facility] MR #: [id number] Physician: Sriram Rick, Department of M.D. Medicine Service Date: 03/31/2022 Division of Birthdate: 1940 Cardiology Room #: 3AB [id number] Adult Cardiovascular Services [facility] [address] [place] [address] Cardiovascular Laboratory Report FINAL IMPRESSIONS: 1. Moderately [...] right internal jugular vein was obtained. A 6-Indonesian 11 cm sheath was inserted without difficulty. [...] Rick M.D. Date Trans: 04/01/2022 02:03 A/hans [id number] cc: Arnie Linda D.O. [address] [place] [id number] Normal [facility] HEMOGLOBIN A1Con 04-01-2022 Glucose [Moles/Vol] 137 mmol/L Normal [facility] Comment on above: Order Comment: If no t done in EDNo: Do not add to previous draw Performed By: #### 5 0103 #### [facility] [address] [facility]. [address] HbA1c (Bld) [Mass fraction] 6.4 % High 4.0-6.0 [facility] Comment on above: Order Comment: If no t done in EDNo: Do not add to previous draw Performed By: #### 5 0103 #### [facility] [address] [place] [address], [facility] MAGNESIUM BLOODon 04-01-2022 Magnesium [Mass/Vol] 2.2 mg/dL Normal 1.9-2.7 [facility] Comment on above: Order Comment: No: D o not add to previous draw Performed By: #### 5 0608 #### [facility] [address] [place] [address], [place] POC GLUCOSE LABon 04-01-2022 Glucose [Mass/Vol] 114 mg/dL High 70-100 [facility] Comment on above: Performed By: #### 5 0103 #### [facility] [address] [place] [address], [place] Glucose [Mass/Vol] 117 mg/dL High 70-100 [facility] Comment on above: Performed By: #### 5 0608 #### [facility] [address] [place] [address], [place] Glucose [Mass/Vol] 139 mg/dL High 70-100 [facility] Comment on above: Performed By: #### 5 0608 #### [facility] [address] [place] [address], [place] Glucose [Mass/Vol] 98 mg/dL Normal 70-100 [facility] Comment on above: Performed By: #### 5 0608 #### [facility] [address] [place] [address], [place] BASIC METABOLIC PANELon 03-16 Calcium [Mass/Vol] 9.1 mg/dL Normal 8.6-10.3 [facility] Comment on above: Order Comment: No: D o not add to previous draw Performed By: #### 4 4396, 43608, 84700, 29463, 05291 #### [facility] [address] [place] [address], [place] Chloride [Moles/Vol] 104 mmol/L Normal 98-107 [facility] Comment on above: Order Comment: No: D o not add to previous draw Performed By: #### 4 4396, 83921, 71524, 53761, 40219 #### [facility] [address] [place] [address], [place] CO2 [Moles/Vol] 27 mmol/L Normal 21-31 [facility] Comment on above: Order Comment: No: D o not add to previous draw Performed By: #### 4 4396, 50146, 44167, 22441, 83726 #### [facility] [address] [place] [address], [place] Creatinine [Mass/Vol] 2.59 mg/dL High 0.70-1.30 [facility] Comment on above: Order Comment: No: D o not add to previous draw Performed By: #### 4 4396, 48354, 92735, 98587, 55247 #### [facility] [address] [place] [address], [place] eGFR- 29 ml/min/1.73sq m Abnormal >60 [facility] Comment on above: Order Comment: No: D o not add to previous draw Result Comment: Calc ulation may not be valid for patients over 70 years Performed By: #### 4 4396, 95875, 13661, 25810, 26344 #### [facility] [address] [place] [address], [place] eGFR- non- 24 ml/min/1.73sq m Abnormal >60 [facility] Comment on above: Order Comment: No: D o not add to previous draw Result Comment: Calc ulation may not be valid for patients over 70 years Performed By: #### 4 4396, 73290, 06783, 64638, 71274 #### [facility] [address] [place] [address], [place] Glucose [Mass/Vol] 90 mg/dL Normal 70-100 [facility] Comment on above: Order Comment: No: D o not add to previous draw Performed By: #### 4 4396, 94480, 65856, 16719, 03439 #### [facility] [address] [place] [address], [place] Potassium [Moles/Vol] 4.2 mmol/L Normal 3.5-5.1 [facility] Comment on above: Order Comment: No: D o not add to previous draw Performed By: #### 4 4396, 63753, 74067, 00269, 24815 #### [facility] [address] [place] [address], [facility] Sodium [Moles/Vol] 141 mmol/L Normal 136-145 [facility] Comment on above: Order Comment: No: D o not add to previous draw Performed By: #### 4 4396, 97938, 97866, 36107, 77419 #### [facility] [address] [place] [address], [facility] Urea nitrogen [Mass/Vol] 55 mg/dL High 7-25 [facility] Comment on above: Order Comment: No: D o not add to previous draw Performed By: #### 4 4396, 36122, 48648, 97627, 14612 #### [facility] [address] CBC COMPLETE BLOOD COUNTon 0 - Erythrocyte distribution width (RBC) [Ratio] 13.6 % Normal 11.5-15.0 [facility] Comment on above: Order Comment: No: D o not add to previous draw Performed By: #### 5 0608 #### [facility] [address] [place] [id number], [facility] Hematocrit (Bld) [Volume fraction] 27.1 % Low 39.0-50.0 [facility] Comment on above: Order Comment: No: D o not add to previous draw Performed By: #### 5 0608 #### [facility] [address] [place] [id number], [facility] Hemoglobin (Bld) [Mass/Vol] 8.7 g/dL Low 13.0-17.0 [facility] Comment on above: Order Comment: No: D o not add to previous draw Performed By: #### 5 0608 #### [facility] [address] [place] [address], [facility] MCH (RBC) [Entitic mass] 28.8 pg Normal 27.0-33.0 [facility] Comment on above: Order Comment: No: D o not add to previous draw Performed By: #### 5 0608 #### [facility] [address] [place] [id number], [facility] MCHC (RBC) [Mass/Vol] 32.1 g/dL Normal 32.0-35.0 [facility] Comment on above: Order Comment: No: D o not add to previous draw Performed By: #### 5 0608 #### [facility] [address] [facility] [place] [id number], [facility] MCV (RBC) [Entitic vol] 89.7 fL Normal 82.0-98.0 T [facility] Comment on above: Order Comment: No: D o not add to previous draw Performed By: #### 5 0608 #### [facility] [address] [facility] [place] [id number], [facility] Nucleated RBC/100 WBC (Bld) [Ratio] 0 % Normal 0-0 [facility] Comment on above: Order Comment: No: D o not add to previous draw Performed By: #### 5 0608 #### [facility] [address] [place] [id number], [facility] PLAT CNT 184 10*3/uL Normal 150-400 [facility] Comment on above: Order Comment: No: D o not add to previous draw Performed By: #### 5 0608 #### [facility] [address] [place] [id number], [facility] RBC (Bld) [#/Vol] 3.02 10*6/uL Low 4.20-5.70 [facility] Comment on above: Order Comment: No: D o not add to previous draw Performed By: #### 5 0608 #### [facility] [address] [place] [id number], [place] WBC (Bld) [#/Vol] 5.93 10*3/uL Normal 4.00-10.60 [facility] Comment on above: Order Comment: No: D o not add to previous draw Performed By: #### 5 0608 #### [facility] [address] [place] [address], [place] FREE T4on 03-31-2022 Free T4 [Mass/Vol] 4.55 ng/dL High 0.71-1.85 [facility] Comment on above: Performed By: #### 5 0103 #### [facility] [address] [place] [address], [facility] MAGNESIUM BLOODon 03-31-2022 Magnesium [Mass/Vol] 2.3 mg/dL Normal 1.9-2.7 [facility] Comment on above: Order Comment: No: D o not add to previous draw Performed By: #### 4 4396, 64299, 05558, 45957, 85561 #### [facility] [address] [place] [address], [facility] PHOSPHORUS BLOODon Phosphate [Mass/Vol] 5.4 mg/dL High 2.5-5.0 [facility] Comment on above: Order Comment: No: D o not add to previous draw Performed By: #### 4 4396, 20684, 77648, 91404, 19999 #### [facility] [address] [place] [address], [facility] POC GLUCOSE LABon 03-31-2022 Glucose [Mass/Vol] 161 mg/dL High 70-100 [facility] Comment on above: Performed By: #### 5 0608 #### [facility] [address] [place] [address], [place] Glucose [Mass/Vol] 108 mg/dL High 70-100 [facility] Comment on above: Performed By: #### 5 0608 #### [facility] [address] [place] [address], [place] POC SARS COV2 ANTIGEN NEGATI VEon 03-31-2022 POC SARS COV2 ANTIGEN NEG Negative Normal NEGATIVE [facility] Comment on above: Result Comment: [...] antigen from SARS-CoV-2 in direct nasopharyngeal swab (TRAIN ATTENDANT) specimens from individuals who are suspected of [...] Accreditation. Performed By: #### 5 0103 #### [facility] [address] [facility]. [address] TSH3on 03-31-2022 TSH 3RD GENERATION <0.01 Critically low 0.34-5.60 Th e [facility] Comment on above: Performed By: #### 4 4396, 31954, 64545, 31430, 27982 #### [facility] [address] [facility]. [address] BASIC METABOLIC PANELon 03-16 Calcium [Mass/Vol] 9.8 mg/dL Normal 8.6-10.3 [facility] Comment on above: Order Comment: No: D o not add to previous draw Performed By: #### 5 0103 #### [facility] [address] [facility]. [place] [id number], [facility] Chloride [Moles/Vol] 103 mmol/L Normal 98-107 [facility] Comment on above: Order Comment: No: D o not add to previous draw Performed By: #### 5 0103 #### [facility] [address] [place] [address], [place] CO2 [Moles/Vol] 29 mmol/L Normal 21-31 [facility] Comment on above: Order Comment: No: D o not add to previous draw Performed By: #### 5 0103 #### [facility] [address] [place] [address], [facility] Creatinine [Mass/Vol] 2.60 mg/dL High 0.70-1.30 [facility] Comment on above: Order Comment: No: D o not add to previous draw Performed By: #### 5 0103 #### [facility] [address] [place] [address], [facility] eGFR- 29 ml/min/1.73sq m Abnormal >60 [facility] Comment on above: Order Comment: No: D o not add to previous draw Result Comment: Calc ulation may not be valid for patients over 70 years Performed By: #### 5 0103 #### [facility] [address] [place] [address], [facility] eGFR- non- 24 ml/min/1.73sq m Abnormal >60 [facility] Comment on above: Order Comment: No: D o not add to previous draw Result Comment: Calc ulation may not be valid for patients over 70 years Performed By: #### 5 0103 #### [facility] [address] [place] [address], [place] Glucose [Mass/Vol] 109 mg/dL High 70-100 [facility] Comment on above: Order Comment: No: D o not add to previous draw Performed By: #### 5 0103 #### [facility] [address] [place] [address], [facility] [facility] Potassium [Moles/Vol] 4.0 mmol/L Normal 3.5-5.1 [facility] Comment on above: Order Comment: No: D o not add to previous draw Performed By: #### 5 0103 #### [facility] [address] [place] [address], [facility] Sodium [Moles/Vol] 141 mmol/L Normal 136-145 [facility] Comment on above: Order Comment: No: D o not add to previous draw Performed By: #### 5 0103 #### [facility] [address] [place] [address], [facility] Urea nitrogen [Mass/Vol] 55 mg/dL High 7-25 [facility] Comment on above: Order Comment: No: D o not add to previous draw Performed By: #### 5 0103 #### [facility] [address] [place] [address], [facility] CBC W/DIFFon 03-30-2022 ABS IMM GRANS 0.0 10*3/uL Normal 0.0-0.2 [facility] Comment on above: Performed By: #### 5 0103 #### [facility] [address] [place] [address], [facility] ABS NEUTROPHILS 4.1 10*3/uL Normal 1.6-7.6 [facility] Comment on above: Performed By: #### 5 0103 #### [facility] [address] [place] [address], [facility] Basophils (Bld) [#/Vol] 0.0 10*3/uL Normal 0.0-0.2 [facility] Comment on above: Performed By: #### 5 0103 #### [facility] [address] [place] [address], [facility] Basophils/100 WBC (Bld) 0.3 % Normal 0.0-1.0 [facility] Comment on above: Performed By: #### 5 102 #### [facility] [address] [facility] [address] Eosinophils (Bld) [#/Vol] 0.3 10*3/uL Normal 0.0-0.5 [facility] Comment on above: Performed By: #### 5 3 #### [facility] [address] [facility]. [address] Eosinophils/100 WBC (Bld) 5.3 % Normal 0.0-6.0 [facility] Comment on above: Performed By: #### 3 #### [facility] [address] Erythrocyte distribution width (RBC) [Ratio] 13.7 % Normal 11.5-15.0 [facility] Comment on above: Performed By: #### 102 #### [facility] [address] Hematocrit (Bld) [Volume fraction] 30.2 % Low 39.0-50.0 [facility] Comment on above: Performed By: #### 102 #### [facility] [address] Hemoglobin (Bld) [Mass/Vol] 9.8 g/dL Low 13.0-17.0 [facility] Comment on above: Performed By: #### 3 #### [facility] [address] IMMATURE GRANS 0.3 % Normal 0.0-1.0 [facility] Comment on above: Performed By: #### 102 #### [facility] [address] [place] [address], [facility] Lymphocytes (Bld) [#/Vol] 1.1 10*3/uL Low 1.2-4.0 [facility] Comment on above: Performed By: #### 3 #### [facility] [address] Lymphocytes/100 WBC (Bld) 17.9 % Low 20.0-45.0 [facility] Comment on above: Performed By: #### 5 3 #### [facility] [address] MCH (RBC) [Entitic mass] 29.3 pg Normal 27.0-33.0 [facility] Comment on above: Performed By: #### 5 3 #### [facility] [address] MCHC (RBC) [Mass/Vol] 32.5 g/dL Normal 32.0-35.0 [facility] Comment on above: Performed By: #### 5 102 #### [facility] [address] [place] [address], [facility] MCV (RBC) [Entitic vol] 90.4 fL Normal 82.0-98.0 T [facility] Comment on above: Performed By: #### 5 3 #### [facility] [address] Monocytes (Bld) [#/Vol] 0.7 10*3/uL Normal 0.1-1.0 [facility] Comment on above: Performed By: #### 5 3 #### [facility] [address] MONOS 11.6 % Normal 5.0-12.0 [facility] Comment on above: Performed By: #### 5 3 #### [facility] [address] Neutrophils/100 WBC (Bld) 64.6 % Normal 40.0-72.0 [facility] Comment on above: Performed By: #### 5 3 #### [facility] [address] [place] [address], [facility] Nucleated RBC/100 WBC (Bld) [Ratio] 0 % Normal 0-0 [facility] Comment on above: Performed By: #### 5 0103 #### [facility] [address] [place] [address], [facility] PLAT CNT 215 10*3/uL Normal 150-400 [facility] Comment on above: Performed By: #### 5 0103 #### [facility] [address] [place] [address], [facility] RBC (Bld) [#/Vol] 3.34 10*6/uL Low 4.20-5.70 [facility] Comment on above: Performed By: #### 5 0103 #### [facility] [address] [place] [address], [facility] WBC (Bld) [#/Vol] 6.38 10*3/uL Normal 4.00-10.60 [facility] Comment on above: Performed By: #### 5 0103 #### [facility] [address] [place] [address], [facility] MAGNESIUM BLOODon 03-30-2022 Magnesium [Mass/Vol] 2.3 mg/dL Normal 1.9-2.7 [facility] Comment on above: Order Comment: No: D o not add to previous draw Performed By: #### 5 0103 #### [facility] [address] [place] [address], [facility] TROPONIN-Ion 03-30-2022 Troponin I.cardiac [Mass/Vol] 0.04 ng/mL Normal 0.00-0.04 [facility] Comment on above: Order Comment: No: D o not add to previous draw Result Comment: REFE RENCE RANGES: 0.00 - 0.04 ng/ml NORMAL 0.05 - 0.50 ng/ml INDETERMINATE > 0.50 ng/ml CONSISTENT WITH AN M.I. Performed By: #### 5 0103 #### [facility] [address] [place] [address], [facility] BNPon 03-25-2022 Natriuretic peptide B (Bld) [Mass/Vol] 7410.0 pg/mL Critically high <=1,800.0 [facility] Comment on above: Performed By: #### F T4 #### [facility] [address] [place] [address] Dr. Benito Schwartz PROF CHEM 8 (BAS METB)on Anion gap [Moles/Vol] 14.5 mmol/L Normal [facility] Comment on above: Performed By: #### F T4 #### [facility] [address] [place] [address] Dr. Benito Schwartz Calcium [Mass/Vol] 9.6 mg/dL Normal 8.5-10.1 [facility] Comment on above: Performed By: #### F T4 #### [facility] [address] [place] [address] Dr. Benito Schwartz Chloride [Moles/Vol] 105 mmol/L Normal 98-107 [facility] Comment on above: Performed By: #### F T4 #### [facility] [address] [place] [address] Dr. Benito Schwartz CO2 [Moles/Vol] 27.6 mmol/L Normal 21.0-32.0 [facility] Comment on above: Performed By: #### F T4 #### [facility] [address] [place] [address] Dr. Benito Schwartz Creatinine [Mass/Vol] 2.48 mg/dL Critically high 0.70-1.30 [facility] Comment on above: Performed By: #### F T4 #### [facility] [address] [place] [address] Dr. Benito Schwartz EGFR-AF WALLISIAN 31 mL/min/1.73m2 Critically low >=60 [facility] Comment on above: Performed By: #### F T4 #### [facility] [address] [place] [address] Dr. Benito Schwartz EGFR-NON AF WALLISIAN 25 mL/min/1.73m2 Critically low >=60 [facility] Comment on above: Performed By: #### F T4 #### [facility] [address] [address] [address] Benito Schwartz Glucose [Mass/Vol] 116 mg/dL Critically high 74-106 [facility] Comment on above: Performed By: #### F T4 #### [facility] [address] [address] [address] Benito Schwartz Potassium [Moles/Vol] 4.1 mmol/L Normal 3.5-5.1 [facility] Comment on above: Performed By: #### F T4 #### [facility] [address] [place] [address] Dr. Benito Schwartz Sodium [Moles/Vol] 143 mmol/L Normal 136-145 [facility] Comment on above: Performed By: #### F T4 #### [facility] [address] [place] [address] Dr. Benito Schwartz Urea nitrogen [Mass/Vol] 56.0 mg/dL Critically high 7.0-18.0 [facility] Comment on above: Performed By: #### F T4 #### [facility] [address] [place] [address] Dr. Benito Schwartz Urea nitrogen/Creatinine [Mass ratio] 22.6 mg/mg Normal [facility] Comment on above: Performed By: #### F T4 #### [facility] [address] [place] [address] Dr. Benito Schwartz CBC AUTO DIFFon 03-07-2022 BASO # 0.0 103/ul Normal 0.0-0.1 [facility] Comment on above: Performed By: #### V ITAD #### [facility] [address] [place] [address] Dr. Benito Schwartz Basophils/100 WBC (Bld) 0.3 % Normal 0.2-2.0 [facility] Comment on above: Performed By: #### V ITAD #### [facility] [address] [place] [address] Dr. Benito Schwartz EO # 0.1 103/ul Normal 0.0-0.7 [facility] Comment on above: Performed By: #### V ITAD #### [facility] [address] [place] [address] Dr. Benito Schwartz Eosinophils/100 WBC (Bld) 2.4 % Normal 0.9-7.0 [facility] Comment on above: Performed By: #### V ITAD #### [facility] [address] [place] [address] Dr. Benito Schwartz Erythrocyte distribution width (RBC) [Ratio] 13.4 % Normal 11.0-15.0 [facility] Comment on above: Performed By: #### V ITAD #### [facility] [address] [place] [address] Dr. Benito Schwartz Hematocrit (Bld) [Volume fraction] 27.7 % Critically low 42.0-54.0 [facility] Comment on above: Performed By: #### V ITAD #### [facility] [address] [place] [address] Dr. Benito Schwartz Hemoglobin (Bld) [Mass/Vol] 8.8 g/dL Critically low 14.0-18.0 [facility] Comment on above: Performed By: #### V ITAD #### [facility] [address] [place] [address] Dr. Benito Schwartz IG # 0.02 10e3/ul Normal 0.00-0.03 [facility] Comment on above: Performed By: #### V ITAD #### [facility] [address] [place] [address] Dr. Benito Schwartz IG % 0.3 % Normal 0.0-0.5 [facility] Comment on above: Performed By: #### V ITAD #### [facility] [address] [place] [address] Dr. Benito Schwartz LYMPH # 1.1 103/ul Critically low 1.2-3.8 [facility] Comment on above: Performed By: #### V ITAD #### [facility] [address] [place] [address] Dr. Benito Schwartz Lymphocytes/100 WBC (Bld) 17.9 % Critically low 20.5-60.0 [facility] Comment on above: Performed By: #### V ITAD #### [facility] [address] [place] [address] Dr. Benito Schwartz MANUAL DIFF REQ NO Normal [facility] Comment on above: Performed By: #### V ITAD #### [facility] [address] [place] [address] Dr. Benito Schwartz MCH (RBC) [Entitic mass] 29.0 pg Normal 25.9-34.0 [facility] Comment on above: Performed By: #### V ITAD #### [facility] [address] [place] [address] Dr. Benito Schwartz MCHC (RBC) [Mass/Vol] 31.8 g/dL Normal 29.9-35.2 [facility] Comment on above: Performed By: #### V ITAD #### [facility] [address] [place] [address] Dr. Benito Schwartz MCV (RBC) [Entitic vol] 91.4 fL Normal 80.0-94.0 [facility] Comment on above: Performed By: #### V ITAD #### [facility] [address] [place] [address] Dr. Benito Schwartz MONO # 0.9 103/ul Critically high 0.3-0.8 [facility] Comment on above: Performed By: #### V ITAD #### [facility] [address] [place] [address] Dr. Benito Schwartz Monocytes/100 WBC (Bld) 15.3 % Critically high 1.7-12. 0 [facility] Comment on above: Performed By: #### V ITAD #### [facility] [address] [place] [address] Dr. Benito Schwartz NEUT # 3.7 103/ul Normal 1.4-6.5 [facility] Comment on above: Performed By: #### V ITAD #### [facility] [address] [place] [address] Dr. Benito Schwartz Neutrophils/100 WBC (Bld) 63.8 % Normal 43.0-75.0 [facility] Comment on above: Performed By: #### V ITAD #### [facility] [address] [address] [address] Benito Schwartz Platelet mean volume (Bld) [Entitic vol] 9.8 fL Normal 9.5-13.5 [facility] Comment on above: Performed By: #### V ITAD #### [facility] [address] [address] [address] Benito Schwartz PLT 212 103/ul Normal 150-450 [facility] Comment on above: Performed By: #### V ITAD #### [facility] [address] [place] [address] Dr. Benito Schwartz RBC 3.03 106/ul Critically low 4.70-6.10 [facility] Comment on above: Performed By: #### V ITAD #### [facility] [address] [place], [place] [id number] Dr. Benito Schwartz WBC 5.9 103/ul Normal 4.0-11.0 [facility] Comment on above: Performed By: #### V ITAD #### [facility] [address] [place], [place] [id number] Dr. Benito Schwartz ECHOCARDIO M/2D COMPLETEon 0 03-07-2022 ECHOCARDIO M/2D COMPLETE Patient: NAS REN Exam Date: 03/07/2022 : 1940 Gender:M Ordering : DR RUPINDER GRIGSBY . Admission #: [id number] Family : DR ARNIE LINDA D.O. Order #: [id number] CLICK HERE TO VIEW EXAM ECHOCARDIOGRAM REPORT [...] Area(A4C): 23.30 cm2 Left Atrium Systolic Volume(A2C): 31909 mm3 Left Atrium Systolic Volume(A4C): 31681 mm3 Mitral Valve MV E to A [...] Rick M.D. on 03/08/2022 at 11:16 Normal [facility] OCC BLD IMMUNO SCREENon 02-14 OCCULT BLOOD Negative Normal NEGATIVE [facility] Comment on above: Performed By: #### V ITAD #### [facility] [address] [place] [address] Dr. Benito Schwartz POINT OF CARE GLUCOSEon 02-14 Glucose [Mass/Vol] 124 mg/dL Critically high 74-106 [facility] Comment on above: Performed By: #### B 12FOL, FETIBC #### [facility] [address] [address] [address] Benito Schwartz PROF CHEM 8 (BAS METB)on Anion gap [Moles/Vol] 13.1 mmol/L Normal [facility] Comment on above: Performed By: #### B 12FOL, FETIBC #### [facility] [address] [address] [address] Benito Schwartz Calcium [Mass/Vol] 9.2 mg/dL Normal 8.5-10.1 [facility] Comment on above: Performed By: #### B 12FOL, FETIBC #### [facility] [address] [address] [address] Benito Schwartz Chloride [Moles/Vol] 105 mmol/L Normal 98-107 [facility] Comment on above: Performed By: #### B 12FOL, FETIBC #### [facility] [address] [address] [address] Benito Schwartz CO2 [Moles/Vol] 28.6 mmol/L Normal 21.0-32.0 [facility] Comment on above: Performed By: #### B 12FOL, FETIBC #### [facility] [address] [place] [address] Dr. Benito Schwartz Creatinine [Mass/Vol] 2.22 mg/dL Critically high 0.70-1.30 [facility] Comment on above: Performed By: #### B 12FOL, FETIBC #### [facility] [address] [place] [address] Dr. Benito Schwartz EGFR-AF WALLISIAN 35 mL/min/1.73m2 Critically low >=60 [facility] Comment on above: Performed By: #### B 12FOL, FETIBC #### [facility] [address] [place] [address] Dr. Benito Schwartz EGFR-NON AF WALLISIAN 29 mL/min/1.73m2 Critically low >=60 [facility] Comment on above: Performed By: #### B 12FOL, FETIBC #### [facility] [address] [place] [address] Dr. Benito Schwartz Glucose [Mass/Vol] 110 mg/dL Critically high 74-106 [facility] Comment on above: Performed By: #### B 12FOL, FETIBC #### [facility] [address] [place] [address] Dr. Benito Schwartz Potassium [Moles/Vol] 3.7 mmol/L Normal 3.5-5.1 [facility] Comment on above: Performed By: #### B 12FOL, FETIBC #### [facility] [address] [place] [address] Dr. Benito Schwartz Sodium [Moles/Vol] 143 mmol/L Normal 136-145 [facility] Comment on above: Performed By: #### B 12FOL, FETIBC #### [facility] [address] [place] [address] Dr. Benito Schwartz Urea nitrogen [Mass/Vol] 66.0 mg/dL Critically high 7.0-18.0 [facility] Comment on above: Performed By: #### B 12FOL, FETIBC #### [facility] [address] [place] [address] Dr. Benito Schwartz Urea nitrogen/Creatinine [Mass ratio] 29.7 mg/mg Normal [facility] Comment on above: Performed By: #### B 12FOL, FETIBC #### [facility] [address] [place] [address] Dr. Benito Schwartz CBC AUTO DIFFon 03-06-2022 BASO # 0.0 103/ul Normal 0.0-0.1 [facility] Comment on above: Performed By: #### B 12FOL, FETIBC #### [facility] [address] [place] [address] Dr. Benito Schwartz Basophils/100 WBC (Bld) 0.2 % Normal 0.2-2.0 [facility] Comment on above: Performed By: #### B 12FOL, FETIBC #### [facility] [address] [place] [address] Dr. Benito Schwartz EO # 0.1 103/ul Normal 0.0-0.7 [facility] Comment on above: Performed By: #### B 12FOL, FETIBC #### [facility] [address] [place] [address] Dr. Benito Schwartz Eosinophils/100 WBC (Bld) 2.4 % Normal 0.9-7.0 [facility] Comment on above: Performed By: #### B 12FOL, FETIBC #### [facility] [address] [place] [address] Dr. Benito Schwartz Erythrocyte distribution width (RBC) [Ratio] 13.8 % Normal 11.0-15.0 [facility] Comment on above: Performed By: #### B 12FOL, FETIBC #### [facility] [address] [place] [address] Dr. Benito Schwartz Hematocrit (Bld) [Volume fraction] 27.7 % Critically low 42.0-54.0 [facility] Comment on above: Performed By: #### B 12FOL, FETIBC #### [facility] [address] [address] [address] Benito Schwartz Hemoglobin (Bld) [Mass/Vol] 8.7 g/dL Critically low 14.0-18.0 [facility] Comment on above: Performed By: #### B 12FOL, FETIBC #### [facility] [address] [place] [address] Dr. Benito Schwartz IG # 0.02 10e3/ul Normal 0.00-0.03 [facility] Comment on above: Performed By: #### B 12FOL, FETIBC #### [facility] [address] [place] [address] Dr. Benito Schwartz IG % 0.3 % Normal 0.0-0.5 [facility] Comment on above: Performed By: #### B 12FOL, FETIBC #### [facility] [address] [place] [address] Dr. Benito Schwartz LYMPH # 1.0 103/ul Critically low 1.2-3.8 [facility] Comment on above: Performed By: #### B 12FOL, FETIBC #### [facility] [address] [place] [address] Dr. Benito Schwartz Lymphocytes/100 WBC (Bld) 16.7 % Critically low 20.5-60.0 [facility] Comment on above: Performed By: #### B 12FOL, FETIBC #### [facility] [address] [place] [address] Dr. Benito Schwartz MANUAL DIFF REQ NO Normal [facility] Comment on above: Performed By: #### B 12FOL, FETIBC #### [facility] [address] [place] [address] Dr. Benito Schwartz MCH (RBC) [Entitic mass] 29.1 pg Normal 25.9-34.0 [facility] Comment on above: Performed By: #### B 12FOL, FETIBC #### [facility] [address] [place] [address] Dr. Benito Schwartz MCHC (RBC) [Mass/Vol] 31.4 g/dL Normal 29.9-35.2 [facility] Comment on above: Performed By: #### B 12FOL, FETIBC #### [facility] [address] [place] [address] Dr. Benito Schwartz MCV (RBC) [Entitic vol] 92.6 fL Normal 80.0-94.0 [facility] Comment on above: Performed By: #### B 12FOL, FETIBC #### [facility] [address] [place] [address] Dr. Benito Schwartz MONO # 0.9 103/ul Critically high 0.3-0.8 [facility] Comment on above: Performed By: #### B 12FOL, FETIBC #### [facility] [address] [place] [address] Dr. Benito Schwartz Monocytes/100 WBC (Bld) 15.3 % Critically high 1.7-12. 0 [facility] Comment on above: Performed By: #### B 12FOL, FETIBC #### [facility] [address] [place] [address] Dr. Benito Schwartz NEUT # 3.7 103/ul Normal 1.4-6.5 [facility] Comment on above: Performed By: #### B 12FOL, FETIBC #### [facility] [address] [place] [address] Dr. Benito Schwartz Neutrophils/100 WBC (Bld) 65.1 % Normal 43.0-75.0 [facility] Comment on above: Performed By: #### B 12FOL, FETIBC #### [facility] [address] [place] [address] Dr. Benito Schwartz Platelet mean volume (Bld) [Entitic vol] 9.7 fL Normal 9.5-13.5 [facility] Comment on above: Performed By: #### B 12FOL, FETIBC #### [facility] [address] [place] [address] Dr. Benito Schwartz PLT 205 103/ul Normal 150-450 [facility] Comment on above: Performed By: #### B 12FOL, FETIBC #### [facility] [address] [address] [address] Benito Schwartz RBC 2.99 106/ul Critically low 4.70-6.10 [facility] Comment on above: Performed By: #### B 12FOL, FETIBC #### [facility] [address] [address] [address] Benito Schwartz WBC 5.7 103/ul Normal 4.0-11.0 [facility] Comment on above: Performed By: #### B 12FOL, FETIBC #### [facility] [address] [address] [address] HEAD WO CONon [...] by: ANTHONY TRACEY Date: 2022-03-06 12:33 Normal [facility] IRON AND TIBCon 03-06-2022 % SATURATION 24.7 % Normal [facility] Comment on above: Performed By: #### B 12FOL, FETIBC #### [facility] [address] [address] [address] Benito Schwartz Iron [Mass/Vol] 55.0 ug/dL Critically low 65.0-175.0 [facility] Comment on above: Performed By: #### B 12FOL, FETIBC #### [facility] [address] [address] [address] Benito Schwartz TIBC DIRECT 223.0 ug/dL Critically low 250.0-450.0 [facility] Comment on above: Performed By: #### B 12FOL, FETIBC #### [facility] [address] [address] [address] Benito Schwartz POINT OF CARE GLUCOSEon 02-14 Glucose [Mass/Vol] 145 mg/dL Critically high 74-106 [facility] Comment on above: Performed By: #### V ITAD #### [facility] [address] [address] [address] Benito Schwartz PROF CHEM 8 (BAS METB)on Anion gap [Moles/Vol] 14.6 mmol/L Normal [facility] Comment on above: Performed By: #### V ITAD #### [facility] [address] [place] [address] Dr. Benito Schwartz Calcium [Mass/Vol] 9.0 mg/dL Normal 8.5-10.1 [facility] Comment on above: Performed By: #### V ITAD #### [facility] [address] [address] [address] Benito Schwartz Chloride [Moles/Vol] 106 mmol/L Normal 98-107 [facility] Comment on above: Performed By: #### V ITAD #### [facility] [address] [place] [address] Dr. Benito Schwartz CO2 [Moles/Vol] 26.3 mmol/L Normal 21.0-32.0 [facility] Comment on above: Performed By: #### V ITAD #### [facility] [address] [address] [address] Benito Schwartz Creatinine [Mass/Vol] 2.40 mg/dL Critically high 0.70-1.30 [facility] Comment on above: Performed By: #### V ITAD #### [facility] [address] [place] [address] Dr. Benito Schwartz EGFR-AF WALLISIAN 32 mL/min/1.73m2 Critically low >=60 [facility] Comment on above: Performed By: #### V ITAD #### [facility] [address] [address] [address] Benito Schwartz EGFR-NON AF WALLISIAN 26 mL/min/1.73m2 Critically low >=60 [facility] Comment on above: Performed By: #### V ITAD #### [facility] [address] [address] [address] Benito Schwartz Glucose [Mass/Vol] 108 mg/dL Critically high 74-106 [facility] Comment on above: Performed By: #### V ITAD #### [facility] [address] [address] [address] Benito Schwartz Potassium [Moles/Vol] 3.9 mmol/L Normal 3.5-5.1 [facility] Comment on above: Performed By: #### V ITAD #### [facility] [address] [address] [address] Benito Schwartz Sodium [Moles/Vol] 143 mmol/L Normal 136-145 [facility] Comment on above: Performed By: #### V ITAD #### [facility] [address] [address] [address] Benito Schwartz Urea nitrogen [Mass/Vol] 72.0 mg/dL Critically high 7.0-18.0 [facility] Comment on above: Performed By: #### V ITAD #### [facility] [address] [address] [address] Benito Schwartz Urea nitrogen/Creatinine [Mass ratio] 30.0 mg/mg Normal [facility] Comment on above: Performed By: #### V ITAD #### [facility] [address] [address] [address] Benito Schwartz VIT B12 AND FOLATEon 022 Cobalamin (Vitamin B12) [Mass/Vol] 432.0 pg/mL Normal 193.0-986.0 [facility] Comment on above: Performed By: #### B 12FOL, FETIBC #### [facility] [address] [address] [address] Benito Schwartz FOLATE 21.60 ng/mL Normal 8.60-58.90 [facility] Comment on above: Performed By: #### B 12FOL, FETIBC #### [facility] [address] [place] [address] Dr. Benito Schwartz BNPon 03-05-2022 Natriuretic peptide B (Bld) [Mass/Vol] 6910.0 pg/mL Critically high <=1,800.0 [facility] Comment on above: Result Comment: Test Repeated. Critical Value Verified Performed By: #### B 12FOL, FETIBC #### [facility] [address] [place] [address] Dr. Benito Schwartz CBC AUTO DIFFon 03-05-2022 BASO # 0.0 103/ul Normal 0.0-0.1 [facility] Comment on above: Performed By: #### F T4, PSASC #### [facility] [address] [place] [address] Dr. Benito Schwartz Basophils/100 WBC (Bld) 0.3 % Normal 0.2-2.0 [facility] Comment on above: Performed By: #### F T4, PSASC #### [facility] [address] [place] [address] Dr. Benito Schwartz EO # 0.2 103/ul Normal 0.0-0.7 [facility] Comment on above: Performed By: #### F T4, PSASC #### [facility] [address] [place] [address] Dr. Benito Schwartz Eosinophils/100 WBC (Bld) 2.7 % Normal 0.9-7.0 [facility] Comment on above: Performed By: #### F T4, PSASC #### [facility] [address] [place] [address] Dr. Benito Schwartz Erythrocyte distribution width (RBC) [Ratio] 13.7 % Normal 11.0-15.0 [facility] Comment on above: Performed By: #### F T4, PSASC #### [facility] [address] [place] [address] Dr. Benito Schwartz Hematocrit (Bld) [Volume fraction] 27.9 % Critically low 42.0-54.0 [facility] Comment on above: Performed By: #### F T4, PSASC #### [facility] [address] [place] [address] Dr. Benito Schwartz Hemoglobin (Bld) [Mass/Vol] 8.9 g/dL Critically low 14.0-18.0 [facility] Comment on above: Performed By: #### F T4, PSASC #### [facility] [address] [place] [address] Dr. Benito Schwartz IG # 0.01 10e3/ul Normal 0.00-0.03 [facility] Comment on above: Performed By: #### F T4, PSASC #### [facility] [address] [place] [address] Dr. Benito Schwartz IG % 0.2 % Normal 0.0-0.5 [facility] Comment on above: Performed By: #### F T4, PSASC #### [facility] [address] [place] [address] Dr. Benito Schwartz LYMPH # 1.3 103/ul Normal 1.2-3.8 [facility] Comment on above: Performed By: #### F T4, PSASC #### [facility] [address] [place] [address] Dr. Benito Schwartz Lymphocytes/100 WBC (Bld) 21.5 % Normal 20.5-60.0 [facility] Comment on above: Performed By: #### F T4, PSASC #### [facility] [address] [place] [address] Dr. Benito Schwartz MANUAL DIFF REQ NO Normal [facility] Comment on above: Performed By: #### F T4, PSASC #### [facility] [address] [place] [address] Dr. Benito Schwartz MCH (RBC) [Entitic mass] 29.5 pg Normal 25.9-34.0 [facility] Comment on above: Performed By: #### F T4, PSASC #### [facility] [address] [place] [address] Dr. Benito Schwartz MCHC (RBC) [Mass/Vol] 31.9 g/dL Normal 29.9-35.2 [facility] Comment on above: Performed By: #### F T4, PSASC #### [facility] [address] [place] [address] Dr. Benito Schwartz MCV (RBC) [Entitic vol] 92.4 fL Normal 80.0-94.0 [facility] Comment on above: Performed By: #### F T4, PSASC #### [facility] [address] [place] [address] Dr. Benito Schwartz MONO # 1.0 103/ul Critically high 0.3-0.8 [facility] Comment on above: Performed By: #### F T4, PSASC #### [facility] [address] [place] [address] Dr. Benito Schwartz Monocytes/100 WBC (Bld) 16.3 % Critically high 1.7-12. 0 [facility] Comment on above: Performed By: #### F T4, PSASC #### [facility] [address] [place] [address] Dr. Benito Schwartz NEUT # 3.5 103/ul Normal 1.4-6.5 [facility] Comment on above: Performed By: #### F T4, PSASC #### [facility] [address] [place] [address] Dr. Benito Schwartz Neutrophils/100 WBC (Bld) 59.0 % Normal 43.0-75.0 [facility] Comment on above: Performed By: #### F T4, PSASC #### [facility] [address] [place] [address] Dr. Benito Schwartz Platelet mean volume (Bld) [Entitic vol] 9.5 fL Normal 9.5-13.5 [facility] Comment on above: Performed By: #### F T4, PSASC #### [facility] [address] [place] [address] Dr. Benito Schwartz PLT 213 103/ul Normal 150-450 [facility] Comment on above: Performed By: #### F T4, PSASC #### [facility] [address] [place], [place] [id number] Dr. Benito Schwartz RBC 3.02 106/ul Critically low 4.70-6.10 [facility] Comment on above: Performed By: #### F T4, PSASC #### [facility] [address] [place] [address] Dr. Benito Schwartz WBC 5.9 103/ul Normal 4.0-11.0 [facility] Comment on above: Performed By: #### F T4, PSASC #### [facility] [address] [place] [address] Dr. Benito Schwartz CULTURE BLOODon 03-05-2022 Microscopic examination of blood, culture Culture Observations: NO GROWTH AT 5 DAYS. Normal [facility] Comment on above: Performed By: #### V ITAD #### [facility] [address] [place] [address] Dr. Benito Schwartz [facility] SARS-CoV-2 (COVID-19) RNA ZITA+probe Ql (Unsp spec) Not detected Normal NOT DETECTED [facility] Comment on above: Result Comment: This test is not yet approved or cleared by the [place] FDA. When there are no FDA-approved or cleared tests available, and other criteria are met, FDA can make tests available under an emergency access mechanism called an Emergency Use Authorization (EUA). The EUA for this test is supported by the Service Tech of Health and Human Service's (HHS's) declaration [...] SARS-CoV-2. Performed By: #### C BC #### [facility] [address] [place] [address] Dr. Benito Schwartz FREE T4on 03-05-2022 Free T4 [Mass/Vol] ng/dL Critically high 0.76-1.46 [facility] Comment on above: Performed By: #### C BC #### [facility] [address] [place] [address] Dr. Benito Schwartz LACTATE/LACTIC ACIDon 2021 Lactate [Moles/Vol] 1.2 mmol/L Normal 0.4-1.9 [facility] Comment on above: Performed By: #### F T4 #### [facility] [address] [place] [address] Dr. Benito Schwartz PROF 14(COMP METB)on 022 Albumin [Mass/Vol] 2.9 g/dL Critically low 3.4-5.0 [facility] Comment on above: Performed By: #### F T4, PSASC #### [facility] [address] [place] [address] Dr. Benito Schwartz Albumin/Globulin [Mass ratio] 0.8 {ratio} Normal [facility] Comment on above: Performed By: #### F T4, PSASC #### [facility] [address] [place] [address] Dr. Benito Schwartz ALP [Catalytic activity/Vol] 107 U/L Normal 46-116 [facility] Comment on above: Performed By: #### F T4, PSASC #### [facility] [address] [place] [address] Dr. Benito Schwartz ALT [Catalytic activity/Vol] 25 U/L Normal 16-63 [facility] Comment on above: Performed By: #### F T4, PSASC #### [facility] [address] [place] [address] Dr. Benito Schwartz Anion gap [Moles/Vol] 14.2 mmol/L Normal [facility] Comment on above: Performed By: #### F T4, PSASC #### [facility] [address] [place] [address] Dr. Benito Schwartz AST [Catalytic activity/Vol] 17 U/L Normal 15-37 [facility] Comment on above: Performed By: #### F T4, PSASC #### [facility] [address] [address] [address] Benito Schwartz Bilirubin [Mass/Vol] 0.5 mg/dL Normal 0.2-1.0 [facility] Comment on above: Performed By: #### F T4, PSASC #### [facility] [address] [address] [address] Benito Schwartz Calcium [Mass/Vol] 9.1 mg/dL Normal 8.5-10.1 [facility] Comment on above: Performed By: #### F T4, PSASC #### [facility] [address] [address] [address] Benito Schwartz Chloride [Moles/Vol] 104 mmol/L Normal 98-107 [facility] Comment on above: Performed By: #### F T4, PSASC #### [facility] [address] [place] [address] Dr. Benito Schwartz CO2 [Moles/Vol] 27.0 mmol/L Normal 21.0-32.0 [facility] Comment on above: Performed By: #### F T4, PSASC #### [facility] [address] [address] [address] Benito Schwartz Creatinine [Mass/Vol] 2.97 mg/dL Critically high 0.70-1.30 [facility] Comment on above: Performed By: #### F T4, PSASC #### [facility] [address] [address] [address] Benito Schwartz EGFR-AF WALLISIAN 25 mL/min/1.73m2 Critically low >=60 [facility] Comment on above: Performed By: #### F T4, PSASC #### [facility] [address] [address] [address] Benito Schwartz EGFR-NON AF WALLISIAN 21 mL/min/1.73m2 Critically low >=60 [facility] Comment on above: Performed By: #### F T4, PSASC #### [facility] [address] [address] [address] Benito Schwartz Globulin (S) [Mass/Vol] 3.6 g/dL Normal T [facility] Comment on above: Performed By: #### F T4, PSASC #### [facility] [address] [address] [address] Benito Schwartz Glucose [Mass/Vol] 162 mg/dL Critically high 74-106 [facility] Comment on above: Performed By: #### F T4, PSASC #### [facility] [address] [address] [address] Benito Schwartz Potassium [Moles/Vol] 4.2 mmol/L Normal 3.5-5.1 [facility] Comment on above: Performed By: #### F T4, PSASC #### [facility] [address] [place] [address] Dr. Benito Schwartz Protein [Mass/Vol] 6.5 g/dL Normal 6.4-8.2 [facility] Comment on above: Performed By: #### F T4, PSASC #### [facility] [address] [place] [address] Dr. Benito Schwartz Sodium [Moles/Vol] 141 mmol/L Normal 136-145 [facility] Comment on above: Performed By: #### F T4, PSASC #### [facility] [address] [place] [address] Dr. Benito Schwartz Urea nitrogen [Mass/Vol] 74.0 mg/dL Critically high 7.0-18.0 [facility] Comment on above: Performed By: #### F T4, PSASC #### [facility] [address] [place] [address] Dr. Benito Schwartz Urea nitrogen/Creatinine [Mass ratio] 24.9 mg/mg Normal [facility] Comment on above: Performed By: #### F T4, PSASC #### [facility] [address] [place] [address] Dr. Benito Schwartz TROPONIN, HIGH SENSITIVITYon 03-05-2022 HSTROP 39.6 pg/mL Normal 4.0-76.1 [facility] Comment on above: Result Comment: CUT- OFF POINTS HAVE BEEN ESTABLISHED BASED ON THE FOURTH UNIVERSAL DEFINITIONS OF MYOCARDIAL INFARCTION. THE UPPER REFERENCE LIMIT (URL) OF TROPONIN, DEFINED THE 99TH PERCENTILE OF cTnI DISTRIBUTION IN A REFERENCE POPULATION, HAS BEEN CONFIRMED THE DECISION THRESHOLD FOR OH DIAGNOSIS. Performed By: #### F T4, PSASC #### [facility] [address] [address] [address] Benito Schwartz TSHon 03-05-2022 TSH Qn m[IU]/L Critically low 0.358-3.740 [facility] Comment on above: Performed By: #### F T4 #### [facility] [address] [address] [address] Benito Schwartz TSH RANGE SEE BELOW Normal [facility] Comment on above: Result Comment: <0.3 4 UIU/ml HYPERTHYROID 0.34-5.60 UIU/ml EUTHYROID >5.60 UIU/ml HYPOTHYROID Performed By: #### F T4 #### [facility] [address] [address] [address] Benito Schwartz US THYROIDon 03-04-2022 US [...] MALENA RIOS Date: 2022-03-04 13:56 Normal [facility] - Chemistry and C hemistry - challengeOrdered By: Enrrique Mckeon on 02-22-2022 Natriuretic peptide B (Bld) [Mass/Vol] 251.0 pg/mL High 5-[address] [facility] TSH DL <= 0.005 mIU/L QnOrde red By: Enrrique Mckeon on 02-22-2022 TSH Qn m[IU]/L Low 0.45-5.[address] [facility] Coding Summaryon 07-08-2021 Coding Summary HTMLBase 64 DnwtidkhNRk8bWl+PGhl YWQ+UV9SZNPeC44orKBg oU6LZ6kCLA9QAETALZAX DE5PLW4ksAY5DBsuC6Ts biAv IwttrZFgUO07SLw3GPH3 tXaeRXpppV8bxYDqJ7v4 XkGqBD77eK50NGptCQHr SjG1RxHqeyousVWs F7orBoKndZJwWte+PHRh YmxlIHdpZHRoPScxMDAl NgYakAkaYA1rXv6gOYWd LWNvbGxhcHNlOiBj i6vjEECxMSmwCY9lnOgl F4OwoAM0QLIkq0a2Ro73 dHI+CDPzKRC7bCflFXdh v472GlOcq0etYNF2 pUFoHTgfKSE4K85hb1E4 JVNbBAAvKBH6uZR0nP6c kZaghbymE8DygBJmHfM6 PGK5aUEjuS2ooPvs hczhnW2yIkm+C80GEA4E YPARXH0TNom3N6XyOwrn dHI+VV55ANLsWN86iVUz hFHvh3uwsCq4CuQh LLBpPBV6jZidWTmnp9Sx FWPoQ16lqTYjm0F2LWLt uUkzgLGkCcVjhDH4fV9r NCkssrehz2ljusyg Ernsx0imlt17rP32R20l JTygDFKzRYA4CDCxNTNx zBvnbg7wzP2fMm6+IDxj i7hgj9ifqJx5PwQj YAXyymNvvHxfDEU4f7Ic Mx67H1BfdZyib1XfJoc7 yp93mYLoq6L7yOZ3DCqj ZLNqgJ2rYGxdQzA1 JEWlEyUkoZ93wQZtQEwo Mr4zyWlotWxjSB7cDUTc eyayJTStjK4oUORhmDIx iUxuUW9jQTPkxvep s657VdPcACS4JAFbqZMh R5PveO1hIsPbBKOnRRLd Q8OcbDFgHWtiA222MGtl UuN0XKZoxeJaN7So CADodDoaJuV5h6M3Ut7X v8GdqxetFRJ9NMizOMK2 RlSeHjCrCvM8X4WjUny1 VUTpbPzyYG3hU9Lq DTMjptnnippiyCF5FHXt UYSetW10aRQhSXjyZh0u w0U4n570TRKcKTAwxJ20 Nn5xhWhrPNYnrAZB sJ2jwsvbo6piboeeFlRt FMTdESt0MCy2YGVjlSxy KoYuTZS5RrL3WHM2cBBl kD4bqUcovwwreO7l Oyc+A74alN5aKHA7NFG9 hbbuPBEabpOhYT04DE95 J4QnJehjbZJhwHO+PGRp baYuqBilVM4qGuRj j2asy8XrHJchQ2OwQKKp JRgwQto8STZgVMD6rXV8 qF1nBIReFPbdq8E8mKC7 C3HyjvTyjy6uz6az ILFhQCmsH35ooMMwe0M5 XPWtgPY0BTVmgCdlJtRq zY85Sxk+QEZkmFmep5Sb Bpgyg4jen5gxjGo5 IjMwJSIgdmFsaWduPSJ0 a8HzUx57F67dDDwfSFKe ZZHmYOCpZAHorItnue8l yD4kNf9+PGNvbCB3 mIH3mQ1cUARbSbL4KByf M499EwWjdIFwOblah4or z0knnLl0NtXmIREhdiJr rGgfJXV2l6OqNc26 O11qJTdrNAZoNSJiYZFq DEFrhOuhpx9uaM1cOk5+ DH3yw5fuxa31dZ70aQE+ WNQcZKX2mIfcPZoy WIXdnH7nTDusVaS4AEOq TtZuaL43jYGyILicTe5h dWmizMgwBI1nHKGgboko r056HfKgu3xuRRDi tTJpTXcwWBR4P71om9Z4 TZBpRBSoBYQ2xSW0kU9e bGlnbjogbGVmdDsgdmVy wZjxDRhvMHivB468 IHRvcDsnPlBhdGllbnQg AiLfTBi4V4MoPvq9VRVn aFkoUW0kjVZyPAvsGa8l rDueuKarNQ8eATHe lhuzn956PuFiu6quKYJf uAOgGVygNKJ4H27yv4Q2 JLNdXJHoEUE5aRL8lG0f bGlnbjogbGVmdDsg raVokZsjOGhaPDkvH238 IHRvcDsnPkJpcnRoIERh qZM5HL71CO18ySRfx6S6 jCC6T1ZpZKZvsytz vrgueZL5QSOdNZDwkM62 Ft9hmHdyMq4kDWHuJCT1 EBRffCKkQ0WquD2rRpEm HIWjIAUkI4AwjLFu QTvzF348RFryHtQ1TWVr ifXgK8AmZGXckUdaGnA5 f2X8Rs6HB4L2KZ45FU08 bNJue9J0oRH9R4Bj FACscnzjfxiqiXY8TOYu FDTznR01Zq6mxCekCp1m LQStGQF1OQUdoAHrA8Ka hZ4vNtPmSOBnBQPw J2QhpIOwXZmaH807WLkf BqI6PMEywqVmA4NiRCPt kIscPjI9y0D3Bg7YYYd4 GO24LT35fQByc0O0 lUR9G4ZfJEYntjbqbkel tKK2PNMfKSAerL92Oa8h yCtsVv7xEQIoRXK5PJGy yXNqB0KbrU4gKaBg NBYxFDFdZ7EzkYXqJDib O481GBbqJbI7DGSrpyBi F9XkUWVqfWnrSqP5j0C0 Cd8RUKMkGE32EWD6 uVS2RT58DX85C0NcBbxt dGFibGU+PHRhYmxlIHdp ZHRoPScxMDAlJyBzdHls KX6cWj5fJNKrWQNc iEmnvFOeGqPaw3kyZPPq QKlgEF0hcGzkR6ByiRX9 FBPda8q4Df09T28oJ1Fu dXA+KXLzdFR2jSN1 uM4pSqEzAvN1QGciA960 OsJebSTlGinzu7upt0wc kTa9VuP9HPZwsuYaiZox UUH1h0DoJe72D02m IHdpZHRoPSIxNSUiIHZh rBrluq2xxA5nYc6+PGNv xWY2rTM4nK4nGuQiFbQ4 YOwwE796CdKwbQNd Ufpag9czc1yjuMo4XeLb RLPwntFcfFgvCRT9m7Hp Qc46H7LquVowz5QyVec0 qo86qOSpr7D7mHZ2 B3GhPSYevlbyxVMkiZce JY3mGGTmpnkwDNEdqM5i SHTzR2c0KiBhEiS1FAcv X5AyynU0BVKbnQNg NCtyAZU2N94fb0N6DNEu YFQpOKQ3qBB6jY6zaMmd bjogbGVmdDsgdmVydGlj KQhmLEdlI484EQYe vSdkBVOawK3fYQQtyQOl hFriID5fBKZlarkoNtTS JGRLAomdFfXYXxm6G8Rn Nln5OSXgvQxuLS1q uIKiCPkjIm4inPtuhHcs BP6mOBXladfqWAZgpM6r LTNbqGVciMrwMG3jQIQo rmiza224RnNhFZC1 NASscTUfB5LqkQ7jBvZi ARNrDZQpJ9OrnKHfJBak O994MRugNmF0VGMnegLu Z9QmHGOybFthWyY4 e5R4Jh3zAl7uTD9uZRRs AU72GI40uLKtr1O4yCF0 V3JjUBSktorcqpzuzMA7 VPKxIVSeeM66fNKq LSpjJt5ot8S1b066UQZp TVIdjT27Hg2dsFwdAOSe nJEBkT9ngrzcj9emujya GjZfGGAwNTq3AFw5 TFYjdElxOlHeSMO0EuF4 YAS7rGFysC1fsCaaahhv nL2sNvk+NzkgWWVhcnM8 A3OkJzy2DKXdcKni TZ0mlCNeJJkgDk5dtGku zJynAN0wXFOwoidvHALr rA3vALIhsYGqjLiwIK2h CEVrabnfi661LlVj QNB2HSXaxYJsL9DsqK4z YdIbRPYpANAcW0XpxKWv YNgqV368LImcDhY9LMZd miQyP4CkZIJgoEvc OvK9u1G2Bl7OBNxKSW11 GZ95pKShw1J5nEP8M1Nf PIZgzidttanmnWU7RNMm WURlcY41vEIaJUrj Ky1sx9T5k081OXKmIGRs vH55Oe7fxUicOERgsMNS pG2tjtqyh8znuxzeRhAc EOLoQId7SOo6ERNz hPwbWoEyQJS1JpF3ZXU0 aQQlsU5oaIszojhimP4d Oyc+T0I7S9EeIbipnYK+ CM80QCOlRQ92aHVg iQLlk2ycyHd9YmAcEKUn KYV2pBcwQThpr1AaJJAn B34ykKHfq7S3JDUfdGdx jSLbFrJqeIN6rX1a BBfoewsmo9cmqboaMnqh q4gmen07oA61I14vAHvl ZHRoPSIzMCUiIHZhbGln nn4mtU6yUp5+PGNv hTR9zLN2mA3dPjUtKaI4 WJntY676LkSocOFfRngf h8xdx6cppPw5AeGkQSCe inMuxHpqDSD5a1Ys Hj67F97dRZayEDKjFZSx ZGRcTCJehEmyxn0eoK2o Ii8+OD2ds4xaob46oT84 dHI+IJBlLXI9lPll SLyoXICyaA8dHHpnLbL3 IGTsBaDuuA01sNLqSTlr Pr3buWywgRghDI6kPLCs wnsqs177YxZck3fd RHCabYGsXLbeXMF9J49o x8F5QRPxEXQaCUB4wMR8 kS2anUedfzywxHBndVde dmVydGljYWwtYWxp D425PNRrlJrvUrLbiNAs G5wdrgUXFM3dEpinmON+ PUIoDLO9fKtsUNstURSl wT3xPPPeV3y8HzUb NkU1EWorQ1HxulA9BTLa pSHrXQEupJABrS5ukpoo w9zhpavcHfCeMGMlFFt2 WPr3RLSerVoqQxZi FLA0UsX3GXQ6ySBjzG7g pUyomzjnmT7lDvf+RklO OjwvdGQ+VACyJGO4bDnz MZjdEKWwyZ0rFJNu A5s0GuCiMxM5NFygE8Ff mfN6VQDnkOOlBUProTGJ aQ0xmzaiy8fsuwewXzTa BLWeCBf8JQr7EQVr gWquJsPjSPS5OuU8UFB4 fQBycQ0gqYqqxpvlfH3u Oyc+TVJOOjwvdGQ+PHRk BVD7rSxmSAfaPOOd yK1uRNSdS2u7QaTjAvN5 GFekR8QjfeS2CHNonNDf CDElhONZeK0vmewqq5hr cjogIzAwMDAwMDt0 NDs1TMDfiZlmYjIyCKM9 AqF5SOM7sPRnoN3zlQqn ritcnO4wCdt+LGR9SOS4 OX47LY97J4YnNmep dGFibGU+PHRhYmxlIHdp ZHRoPScxMDAlJyBzdHls KH7rAh6jCDKpAMNjyTto kHGiTnDks8otGJAc ZTs (more content not included)... Normal [facility] Provider Orderson 07-05-2021 Provider Orders [id number] Normal [facility] Creatinine Lvlon 07-02-2021 eGFR Non AA 29 mL/min/1.73m2 Invalid Interpretation Code [facility] Comment on above: Performed By: #### [id number] #### [facility] (DEFAULT) [address] [place] [id number] eGFR AA 35 mL/min/1.73m2 Invalid Interpretation Code [facility] Comment on above: Result Comment: Medical Staff Services Coordinator hilda Kidney disease could be indicated at eGFRs of less than 60 ml/min/1.73m2. Kidney Failure is indicated at less than 15 ml/min/1.73m2 Performed By: #### [id number] #### [facility] (DEFAULT) [address] [place] [id number] Creatinine [Mass/Vol] 2.19 mg/dL High 0.90-1.30 [facility] Comment on above: Performed By: #### [id number] #### [facility] (DEFAULT) [address] [place] [id number] Vital Signs Date Time Vital Sign Value Performing Clinician Facility 08-08-2024 10:27-0400 Diastolic blood pressure 80 mm[Hg] Avery Syed MD Work Phone: [facility] 08-08-2024 10:27-0400 Heart rate 72 /min Avery Syed MD Work Phone: [facility] 08-08-2024 10:27-0400 Systolic blood pressure 150 mm[Hg] Avery Syed MD Work Phone: [facility] 08-08-2024 10:25-0400 Body height 180.3 cm Avery Syed MD Work Phone: [facility] 08-08-2024 10:25-0400 Body mass index (BMI) [Ratio] 30.52 kg/m2 Avery Syed MD Work Phone: [facility] 08-08-2024 10:25-0400 Body weight 99.25 kg Avery Syed MD Work Phone: [facility] 07-09-2024 10:33-0400 Diastolic blood pressure 74 mm[Hg] Randall Pancho DO Work Phone: [facility] 07-09-2024 10:33-0400 Heart rate 70 /min Randall Pancho DO Work Phone: [facility] 07-09-2024 10:33-0400 SaO2% (BldA) [Mass fraction] 93 % Randall Pancho DO Work Phone: [facility] 07-09-2024 10:33-0400 Systolic blood pressure 136 mm[Hg] Randall Pancho DO Work Phone: [facility] 04-22-2024 10:44-0400 Body height 180.34 cm [...] Work Phone: [facility] 03-01-2024 11:11-0400 SaO2% (BldA) [Mass fraction] 95 % DO Arnie Ball Work Phone: [facility] 03-01-2024 11:11-0400 Systolic blood pressure 158 mm[Hg] DO Arnie Ball Work Phone: [facility] 02-08-2024 10:19-0400 Diastolic blood pressure 58 mm[Hg] Avery Syed MD Work Phone: [employer] 02-08-2024 10:19-0400 Heart rate 70 /min Avery Syed MD Work Phone: [employer] 02-08-2024 10:19-0400 Systolic blood pressure 126 mm[Hg] Avery Syed MD Work Phone: [facility] 02-08-2024 10:18-0400 Body mass index (BMI) [Ratio] 29.99 kg/m2 Avery Syed MD Work Phone: [facility] 02-08-2024 10:18-0400 Body weight 97.52 kg Avery Syed MD Work Phone: [facility] 12-18-2023 10:07-0500 Body height 180.34 cm [...] 08-22-2023 10:00-0500 Body height Arnie Ball Other [facility] [employer] Other 08-22-2023 10:00-0500 Body mass index (BMI) [Ratio] 29.35 kg/m2 Arnie Ball Other [employer] [facility] [employer] Other 08-22-2023 10:00-0500 Body weight 98.16 kg Arnie Ball Other [employer] Other 08-22-2023 10:00-0500 Diastolic blood pressure 74 mm[Hg] Arnie Ball Other [employer] Other 08-22-2023 10:00-0500 Respiratory rate 12 /min Arnie Ball Other [employer] Other 08-22-2023 10:00-0500 Systolic blood pressure 135 mm[Hg] Arnie Ball Other [employer] Other 04-20-2023 09:30-0400 Body height Arnie Ball Other [employer] Other 04-20-2023 09:30-0400 Body mass index (BMI) [Ratio] 29.62 kg/m2 Arnie Ball Other [employer] Other 04-20-2023 09:30-0400 Body weight 99.07 kg Arnie Ball Other [employer] Other 04-20-2023 09:30-0400 Diastolic blood pressure 64 mm[Hg] Arnie Ball Other [employer] Other 04-20-2023 09:30-0400 Respiratory rate 12 /min Arnie Ball Other [employer] Other 04-20-2023 09:30-0400 Systolic blood pressure 113 mm[Hg] Arnie Ball Other [employer] Other 12-15-2022 10:00-0500 Body height Arnie Ball Other [employer] Other 12-15-2022 10:00-0500 Body mass index (BMI) [Ratio] 29.81 kg/m2 Arnie Ball Other [employer] Other 12-15-2022 10:00-0500 Body weight 99.7 kg Arnie Ball Other [employer] Other 12-15-2022 10:00-0500 Diastolic blood pressure 70 mm[Hg] Arnie Ball Other [employer] Other 12-15-2022 10:00-0500 Respiratory rate 12 /min Arnie Ball Other [employer] Other 12-15-2022 10:00-0500 Systolic blood pressure 122 mm[Hg] Arnie Ball Other [employer] Other 09-02-2022 14:11-0500 Body weight 98.9 kg [...] both ears (Primary Dx) Start: 11-20-2024 ambulatory [facility] Start: 11-13-2024 End: 11-13-20[facility]: 10-29-2024 ambulatory [facility] Start: 10-17-2024 ambulatory [facility] Start: 10-17-2024 End: 10-17-2024 ambulatory [facility] Start: 10-03-2024 ambulatory [facility] Start: 09-30-2024 ambulatory [facility] Start: 09-17-2024 ambulatory [facility] Start: 09-10-2024 End: 09-10-2024 ambulatory [facility] Start: 09-02-2024 ambulatory [facility] Start: 08-22-2024 End: 08-22-2024 ambulatory Ramesh Rascon Facility:[facility] Start: 08-21-2024 End: 08-21-2024 Bamboo flowsheet Marilin Clay [facility] Work Phone: [facility] Start: 08-21-2024 End: 08-21-2024 Bamboo flowsheet Marilin Clay [facility]-A Work Phone: [facility] Start: 08-21-2024 End: 08-21-2024 Clinical Support Marilin Clay CCC-A Work Phone: [facility] Comment on above: Bilateral impacted c erumen (Primary Dx) Start: 08-08-2024 End: 08-08-2024 Office outpatient visit 25 minutes Avery Syed MD Work Phone: [facility] Comment on above: Stage 4 chronic kidn ey disease (CMS-HCC) (Primary Dx) Start: 08-01-2024 ambulatory [facility] Start: 07-30-2024 ambulatory MARIUSZ [facility] Start: 07-24-2024 End: 07-24-2024 ambulatory ENRRIQUE ARCOSCKER [facility] Start: 07-22-2024 ambulatory [facility] Start: 07-22-2024 Encounter for preprocedural cardiovascular examination [facility] Start: 07-17-2024 ambulatory [facility] Start: 07-09-2024 End: 07-09-2024 Bamboo flowsheet Randall Pancho DO Work Phone: [facility] Start: 07-09-2024 End: 07-09-2024 Bamboo flowsheet Randall Deleon DO Work Phone: [facility] Start: 07-09-2024 End: 07-09-2024 Office outpatient visit 25 minutes Randall Deleon DO Work Phone: [facility] Comment on above: MOLINA (obstructive sle ep apnea) (Primary Dx); Hypersomnia; Primary insomnia; Snoring; Hypoxia Start: 07-09-2024 End: 07-09-2024 ambulatory RANDALL DELEON Not Available Start: 06-26-2024 ambulatory [facility] Start: 2024 ambulatory GREG ALEJANDRE [facility] Start: 04-29-2024 End: 04-29-2024 Telephone encounter Scanning Provider External PHN [facility] Start: 04-22-2024 End: 04-22-2024 ambulatory DO Arnie Linda Work Phone: [facility] Work Phone: Start: 04-22-2024 End: 04-22-2024 Patient encounter procedure DO Arnie Linda Work Phone: [facility] Work Phone: Start: 04-11-2024 ambulatory [facility] Start: 04-09-2024 ambulatory MARIUSZ [facility] Start: 04-02-2024 ambulatory GREG ALEJANDRE [facility] Start: 03-29-2024 End: 03-29-2024 ambulatory DAWN ORTIZ [facility] Start: 03-05-2024 End: 03-05-2024 ambulatory MARIUSZ [facility] Start: 03-01-2024 End: 03-01-2024 ambulatory DO Arnie Linda Work Phone: [facility] Work Phone: Start: 03-01-2024 End: 03-01-2024 Patient encounter procedure DO Arnie Linda Work Phone: [facility] Work Phone: Start: 03-01-2024 Registered Recurring DO Jeremi in [place] [facility] Work Phone: Start: 02-21-2024 End: 02-21-2024 ambulatory MARILIN CLAY Not Available Start: 02-08-2024 End: 02-08-2024 Office outpatient visit 25 minutes Avery Syed MD Work Phone: N [facility] Comment on above: Stage 4 chronic kidn ey disease (CMS-HCC) (Primary Dx) Start: 02-01-2024 Non-patient / Non-visit DO Aguilar Linda Work Phone: [facility] Work Phone: Start: 01-26-2024 End: 01-26-2024 Telephone encounter Ketan Osullivan C[facility] Start: 12-19-2023 Non-patient / Non-visit DO Aguilar Linda Work Phone: [facility] Work Phone: Start: 12-18-2023 End: 12-18-2023 ambulatory Arnie Linda Other [employer] Other Start: 12-18-2023 Telephone encounter Arnie Linda [facility] Start: 12-18-2023 End: 12-18-2023 Patient encounter procedure DO Arnie Ball Work Phone: [facility] Work Phone: Start: 09-29-2023 End: 09-29-2023 ambulatory Arnie Ball Other [employer] Other Start: 09-29-2023 Telephone encounter Arnie Linda [facility] Start: 09-01-2023 End: 09-01-2023 Registered Recurring DO Arnie Ball Work Phone: [facility] Work Phone: Start: 09-01-2023 End: 09-01-2023 ambulatory DO Arnie Maddi Work Phone: [facility] Work Phone: Start: 08-27-2023 End: 08-27-2023 ambulatory Arnie Ball Other [employer] Other Start: 08-27-2023 Telephone encounter Arnie Linda [facility] Start: 08-22-2023 End: 08-22-2023 ambulatory Arnie Ball Other [employer] Other Start: 08-22-2023 Office outpatient vi sit 25 minutes Arnie Maddi [facility] Start: 07-03-2023 End: 07-03-2023 ambulatory Arnie Ball Other [employer] Other Start: 07-03-2023 Telephone encounter Arnie Linda [facility] Start: 07-01-2023 End: 07-01-2023 ambulatory Arnie Ball Other [employer] Other Start: 07-01-2023 Telephone encounter Arnie Linda [facility] Start: 06-22-2023 End: 06-22-2023 ambulatory Arnie Linda Other [employer] Other Start: 06-22-2023 Telephone encounter Arnie Linda [facility] Start: 06-12-2023 End: 06-12-2023 ambulatory Arnie Linda Other [employer] Other Start: 06-12-2023 Telephone encounter Arnie Linda [facility] Start: 04-26-2023 End: 04-26-2023 ambulatory Arnie Linda Other [employer] Other Start: 04-26-2023 Telephone encounter Arnie Linda [facility] Start: 04-20-2023 End: 04-20-2023 ambulatory Arnie Linda Other [employer] Other Start: 04-20-2023 Office outpatient vi sit 25 minutes Arnie Linda [facility] Start: 03-14-2023 End: 03-14-2023 ambulatory Arnie Linda Other [employer] Other Start: 03-14-2023 Telephone encounter Arnie Linda [facility] Start: 02-28-2023 End: 03-01-[address] DOCTOR EDWARDS Facility: Start: 02-15-2023 Telephone encounter Arnie Linda [facility] Start: 02-15-2023 End: 02-16-[address] DOCTOR EDWARDS [employer] Other Start: 02-14-2023 End: 02-14-2023 ambulatory Arnie Linda Other [employer] Other Start: 02-14-2023 Telephone encounter Arnie Linda [facility] Start: 01-11-2023 End: 01-11-2023 ambulatory Arnie Linda Other [employer] Other Start: 01-11-2023 Office outpatient vi sit 15 minutes Arnie Maddi [facility] Start: 01-02-2023 End: 01-03-2023 ambulatory AVERY SYED MD Facility:[facility] Start: 12-15-2022 End: 12-15-2022 ambulatory Arnie Linda Other [employer] Other Start: 12-15-2022 Patient encounter procedure Arnie Linda [facility] Start: 11-16-2022 End: 11-17-[address] ARNIE LINDA Facility:[facility] Start: 11-14-2022 End: 11-14-2022 ambulatory Arnie Linda Other [employer] Other Start: 11-14-2022 Telephone encounter Arnie Linda [facility] Start: 10-03-2022 End: 10-04-[address] ARNIE LINDA Facility:[facility] Start: 09-22-2022 End: 09-23-[address] DOCTOR EDWARDS Facility:[facility] Start: 09-09-2022 End: 09-10-[address] DOCTOR EDWARDS Facility:[facility] Start: 09-02-2022 End: 09-02-2022 ambulatory DO Arnie Linda Work Phone: [facility] Work Phone: Start: 09-02-2022 End: 09-02-2022 Registered Recurring DO Arnie Linda Work Phone: [facility] Start: 08-30-2022 End: 08-31-[address] ARNIE LINDA Facility:[facility] Start: 07-21-2022 End: 07-21-2022 Admission to same day surgery center DO Arnie Linda Work Phone: [facility] Start: 07-21-2022 End: 07-21-2022 ambulatory DO Arnie Linda Work Phone: [facility] Work Phone: Start: 07-20-2022 End: 07-21-[address] ARNIE LINDA Facility:[facility] Start: 07-19-2022 End: 07-19-2022 ambulatory DO Arnie Linda Work Phone: [facility] Work Phone: Start: 07-19-2022 End: 07-19-2022 Patient encounter procedure DO Arnie Maddi Work Phone: [facility] Start: 07-07-[address] DAWN Rodgers ility:[facility] Start: 06-21-2022 Adult health examination Gume Linda Other [employer] Other Start: 06-17-2022 Registered Recurring DO Jeremi in [place] Work Phone: [facility] Start: 06-03-2022 End: 06-03-2022 Registered Recurring DO Arnie Linda Work Phone: [facility] Start: 05-31-2022 End: 05-31-2022 Patient encounter procedure DO Arnie Linda Work Phone: [facility] [place] Start: 05-12-2022 End: 05-13-2022 ambulatory AVERY SYED MD Facility:[facility] Start: 05-10-2022 End: 05-11-2022 ambulatory FERMIN SANCHEZ Facility:[facility] Start: 04-26-2022 End: 04-27-[address] DOCTOR EDWARDS Facility:[facility] Start: 04-11-2022 End: 07-07-[address] ARNIE LINDA Facility:[facility] Start: 04-08-2022 End: 04-09-[address] ARNIE LINDA Facility:[facility] Start: 03-30-2022 End: 04-02-2022 Evaluation and management of inpatient GILMER SALAZAR Facility:[facility] Start: 03-25-2022 End: 03-26-2022 ambulatory ENRRIQUE MCKEON Facility:[facility] Start: 03-11-2022 ambulatory ENRRIQUE MCKEON Facility :[facility] Start: 03-06-2022 End: 03-07-2022 Evaluation and management of inpatient DR RUPINDER GRIGSBY . Facility:[facility] Start: 03-04-2022 End: 03-05-[address] ARNIE LINDA Facility:[facility] Start: 08-17-2021 End: 08-17-2021 Pre-procedure evaluation check Arnie Linda Other [employer] Other Start: 08-15-2021 Bradycardia DO Arnie Ba ll Work Phone: [facility] Procedures [...] on above: Result Comment: PERF ORMED BY: [facility] [address] [place] [address] PATHOLOGIST SERVICE SUPERVISOR TRU UMANZOR M.D. Performed By: #### C EA, CBC, FE and TIBC, CMP, TONY ####[facility] [id number] [facility] Start: 02-28-2023 CT of abdomen and pe lvis without contrast DO Arnie Ball Work Phone: Start: 02-28-2023 CT of chest without contrast DO Arnie Ball Work Phone: Start: 01-02-2023 PSA screening FERMIN B OES Comment on above: Performed By: #### F T4, PSASC #### [facility] [address] [place] [address] Dr. Benito Schwartz Start: 08-31-2022 CT of abdomen and pe lvis without contrast DO Arnie Ball Work Phone: Start: 08-31-2022 CT of chest without contrast DO Arnie Ball Work Phone: Start: 07-21-2022 Colonoscopy DO Benjami n Ball Work Phone: Start: 05-31-2022 CT of abdomen and pe lvis without contrast DO Arnie Ball Work Phone: Start: 05-31-2022 CT of chest without contrast DO Arine [place] Work Phone: Start: 02-22-2022 Computed tomography of abdomen and pelvis with contrast DO Arnie [place] Work Phone: Start: 02-22-2022 CT of thorax with contrast DO Arnie Linda Work Phone: Start: 05-19-2018 Laboratory test resu lt abnormal Arnie Linda Other Start: 04-25-2017 Screening for malign ant neoplasm of colon Arnie Linda Other Start: 08-24-2016 Pre-surgery evaluation Arnie Linda Other Start: 08-24-2016 Preoperative cardiov ascular examination Arnie Linda Other Start: 01-01-2015 Screening for malign ant neoplasm of prostate Arnie [place] Other Depression screening Benjmaureen n [place] Other SARS Antigen (LFIA) DO Gume grady Linda Work Phone: Screening for malign ant neoplasm of prostate Arnie [place] Other Plan of Treatment Date Care Activity Detail Author Start: 03-05-2025 End: 03-05-2025 Clinical Support 03/05/2025 1:00 PM EDT Clinical Support [facility] [address] [place] [address] Marilin Clay, [facility] [address] [facility] [place] [address] [facility] Start: 02-07-2025 Adult BMI Screening Adult BMI Screen ing [employer] Start: 02-06-2025 End: 08-08-2025 Basic metabolic 2000 panel - Serum or Plasma Basic Metabolic Panel Lab Routine Stage 4 chronic kidney disease (CMS-HCC) Expected: 02/06/2025 (Approximate), Expires: 08/08/2025 PHN [facility] Work Phone: Comment on above: Expected: 02/06/2025 (Approximate), Expires: 08/08/2025 Start: 02-06-2025 End: 08-08-2025 CBC panel - Blood by Automated count CBC without diff Lab Routine Stage 4 chronic kidney disease ([facility] Expected: 02/06/2025 (Approximate), Expires: 08/08/2025 [facility] [employer] [facility] Comment on above: Expected: 02/06/2025 (Approximate), Expires: 08/08/2025 Start: 02-06-2025 End: 08-08-2025 Magnesium [Mass/volume] in Serum or Plasma Magnesium Lab Routine Stage 4 chronic kidney disease ([facility] [place] Expected: 02/06/2025 (Approximate), Expires: 08/08/2025 [facility] Comment on above: Expected: 02/06/2025 (Approximate), Expires: 08/08/2025 Start: 02-06-2025 End: 08-08-2025 Parathyroid Hormone, intact Parathyroid Hormone, intact Lab Routine Stage 4 chronic kidney disease ([facility] [place] Expected: 02/06/2025 (Approximate), Expires: 08/08/2025 [facility] Comment on above: Expected: 02/06/2025 (Approximate), Expires: 08/08/2025 Start: 02-06-2025 End: 08-08-2025 Phosphate [Mass/volume] in Serum or Plasma Phosphorus Lab Routine Stage 4 chronic kidney disease ([facility] [place] Expected: 02/06/2025 (Approximate), Expires: 08/08/2025 [facility] Comment on above: Expected: 02/06/2025 (Approximate), Expires: 08/08/2025 Start: 02-06-2025 End: 08-08-2025 Protein creat ratio Protein creat ratio Lab Routine Stage 4 chronic kidney disease ([facility] [place] Expected: 02/06/2025 (Approximate), Expires: 08/08/2025 [facility] Comment on above: Expected: 02/06/2025 (Approximate), Expires: 08/08/2025 Start: 12-04-2024 End: 12-04-2024 Clinical Support 12/04/2024 1:00 PM EST Clinical Support [facility] [address] [place] [address] Marilin Clay, [facility] [address] [place] [address] [facility] Start: 10-05-2024 Adult BMI Screening Adult BMI Screen ing [facility] Start: 08-21-2024 End: 08-21-2024 Clinical Support [facility] Comment on above: Arrived Start: 08-15-2024 End: 08-08-2025 Protein creat ratio Protein creat ratio Lab Routine Stage 4 chronic kidney disease ([facility]-H[facility]) Expected: 08/15/2024 (Approximate), Expires: 08/08/2025 [facility] Comment on above: Expected: 08/15/2024 (Approximate), Expires: 08/08/2025 Start: 08-08-2024 End: 08-08-2024 Patient encounter procedure 08/08/2024 10:30 AM EDT Office Visit N [facility] [address] [place] [id number] Avery Syed MD [address] [facility] [address] [place] [address] PHN [facility] Start: 07-09-2024 End: 07-09-2024 Patient encounter procedure 07/09/2024 10:30 AM EDT Office Visit [address] [address] [place] [id number] Randall Deleon DO [address] [place] [address] Ar[address] [facility] [address] Comment on above: Arrived Start: 06-16-2024 Influenza vaccination N [facility] Start: 06-02-2024 End: 01-31-2025 Basic metabolic 2000 panel - Serum or Plasma Basic Metabolic Panel Lab Routine Stage 4 chronic kidney disease ([facility]) Expected: 06/02/2024, Expires: 01/31/2025 [facility] Work Phone: Comment on above: Expected: 06/02/2024 , Expires: 01/31/2025 Start: 06-02-2024 End: 01-31-2025 CBC panel - Blood by Automated count CBC without diff Lab Routine Stage 4 chronic kidney disease ([facility] Expected: 06/02/2024, Expires: 01/31/2025 [employer] Comment on above: Expected: 06/02/2024 , Expires: 01/31/2025 Start: 06-02-2024 End: 01-31-2025 Magnesium [Mass/volume] in Serum or Plasma Magnesium Lab Routine Stage 4 chronic kidney disease ([facility]) Expected: 06/02/2024, Expires: 01/31/2025 [facility] Comment on above: Expected: 06/02/2024 , Expires: 01/31/2025 Start: 06-02-2024 End: 01-31-2025 Parathyroid Hormone, intact Parathyroid Hormone, intact Lab Routine Stage 4 chronic kidney disease ([facility] Expected: 06/02/2024, Expires: 01/31/2025 [facility] Comment on above: Expected: 06/02/2024 , Expires: 01/31/2025 Start: 06-02-2024 End: 01-31-2025 Phosphate [Mass/volume] in Serum or Plasma Phosphorus Lab Routine Stage 4 chronic kidney disease ([facility]) Expected: 06/02/2024, Expires: 01/31/2025 [employer] Comment on above: Expected: 06/02/2024 , Expires: 01/31/2025 Start: 06-02-2024 End: 01-31-2025 Protein creat ratio Protein creat ratio Lab Routine Stage 4 chronic kidney disease ([facility]) Expected: 06/02/2024, Expires: 01/31/2025 [employer] Comment on above: Expected: 06/02/2024 , Expires: 01/31/2025 Start: 02-08-2024 End: 02-08-2024 Patient encounter procedure 02/08/2024 10:30 AM EDT Office Visit N [facility] [address] [place] [address] Avery Syed MD [address] [place] [address] PHN [facility] Start: 11-20-2023 COVID-19 Vaccine ( season) COVID-19 Vaccine ( season) [facility] Start: 07-21-[address] [facility] Start: 06-17-2022 Registered Recurring Colon cancer [facility] Start: 06-17-[address] [facility] Start: 06-10-[address] [facility] Start: 02-22-2022 CT abdomen pelvis w con CT abd omen pelvis w con [facility] Start: 02-22-2022 CT chest w con CT [facility] Start: 07-16-2014 Pneumococcal Vaccine : 65+ Years (2 of 2 - PPSV23 or PCV20) Pneumococcal Vaccine: 65+ Years (2 of 2 - PPSV23 or PCV20) [facility] Start: 2007 Fall Risk Screening Fall Risk Screen ing [facility] Start: 1992 Administration of varicella zoster vaccine Zoster (Shingles) Vaccine (1 of 2) [facility] Start: 1961 DTaP,Tdap and Td Vac cines (1 - Tdap) DTaP,Tdap and Td Vaccines (1 - Tdap) [facility] Start: 1954 Depression Screening Depression Scre ening [facility] Start: 1954 Tobacco Screening Tobacco Screening [facility] Start: 1942 Medicare Annual Well ness Visit Medicare Annual Wellness Visit [facility] Carcinoembryonic Ag [Mass/volume] in Serum or Plasma [facility] Work Phone: Carcinoembryonic Ag [Mass/volume] in Serum or Plasma [facility] Carcinoembryonic Ag [Mass/volume] in Serum or Plasma [facility] Comprehensive metabo lic 1999 panel - Serum or Plasma [facility] Work Phone: Comprehensive metabo lic 1999 [...] Abdomen and Pelvi s W contrast IV [facility] Work Phone: CT Abdomen and Pelvi s W contrast IV [facility] CT Abdomen and Pelvi s W contrast IV [facility] CT Abdomen and Pelvi s W contrast IV [facility] CT Abdomen and Pelvi s WO contrast [facility] Work Phone: CT Abdomen and Pelvi s WO contrast [facility] CT Abdomen and Pelvi s WO contrast [facility] CT Chest W contrast IV [facility] Work Phone: CT Chest W contrast IV [facility] CT Chest W contrast IV [facility] CT Chest W contrast IV [facility] CT Chest WO contrast [facility] Work Phone: CT Chest WO contrast [facility] Chest WO [facility] Erythropoietin (EPO) [Units/volume] in Serum or Plasma [facility] Ferritin [Mass/volum e] in Serum or Plasma [facility] Patient Education Hemorrhoids [place] Polyps [facility] Work Phone: End: 01-31-2025 Urinalysis Urinalysis Lab Routine Stage 4 chronic kidney disease ([facility]) 1 Occurrences starting 02/08/2024 until 01/31/2025 [employer] Comment on above: 1 Occurrences starti ng 02/08/2024 until 01/31/2025 End: 08-08-2025 Urinalysis Urinalysis Lab Routine Stage 4 chronic kidney disease ([facility]) 1 Occurrences starting 08/08/2024 until 08/08/2025 [facility] Comment on above: 1 Occurrences starti ng 08/08/2024 until 08/08/2025 [facility] Immunizations Immunization Date Immunization Notes Care Provider Law griggs 07-15-2024 influenza virus vaccine, unspecified formulation Marilin Sagastumeill [facility] Work Phone: [facility] 07-11-2023 influenza virus vaccine, unspecified formulation Ketan Osullivan [facility] 07-10-2022 COVID-19 Pfizer (bivalent) Arnie Linda Other [facility] 07-10-2022 COVID-19 Pfizer (Pediatric) Arnie Linda Other [facility] 07-04-2022 influenza virus vaccine, split virus (incl. purified surface antigen) Arnie Linda Other [facility] [employer] Other 07-04-2022 influenza virus vaccine, unspecified formulation DO Arnie Linda Work Phone: [facility] [facility] 07-04-2022 influenza, high dose seasonal, preservative-free Arnie Linda Other [employer] [facility] [employer] Other 02-07-2022 COVID-19 Pfizer Arnie pedroza Other [facility] 02-07-2022 COVID-19 Vaccine Pfi zer - Documentation Purposes Only Arnie Linda Other [facility] 07-28-2021 influenza virus vaccine, split virus (incl. purified surface antigen) Arnie Linda Other [employer] Other 07-28-2021 influenza virus vaccine, unspecified formulation DO Arnie Linda Work Phone: [facility] 07-15-2021 COVID-19 mRNA, Comirnaty (Pfizer) DO Arnie Linda Work Phone: [facility] 12-03-2020 COVID-19 mRNA, Comirnaty (Pfizer) DO [employer] Work Phone: [facility] 11-12-2020 COVID-19 mRNA, Comirnaty (Pfizer) DO [employer] Work Phone: [facility] 06-30-2020 influenza virus vaccine, split virus (incl. purified surface antigen) Arnie [place] Other [facility] [employer] Other 06-30-2020 influenza virus vaccine, unspecified formulation DO [employer] Work Phone: [facility] 07-19-2019 influenza virus vaccine, split virus (incl. purified surface antigen) Arnie [place] Other [facility] [employer] Other 07-19-2019 influenza virus vaccine, unspecified formulation DO [employer] Work Phone: [facility] 07-17-2018 influenza virus vaccine, split virus (incl. purified surface antigen) Arnie [place] Other [employer] Other 07-17-2018 influenza virus vaccine, unspecified formulation DO [employer] Work Phone: [facility] 12-25-2017 diphtheria, tetanus toxoids and acellular pertussis vaccine, unspecified formulation [employer] Other [facility] 07-24-2017 influenza virus vaccine, split virus (incl. purified surface antigen) Arnie [place] Other [facility] [employer] Other 07-24-2017 influenza virus vaccine, unspecified formulation DO [employer] Work Phone: [facility] 07-12-2016 influenza virus vaccine, split virus (incl. purified surface antigen) Arnie [place] Other [employer] Other 07-12-2016 influenza virus vaccine, unspecified formulation DO [employer] Work Phone: [facility] 05-26-2016 pneumococcal Conjuga te, unspecified formulation; Translations: [Need for prophylactic vaccination against Streptococcus pneumoniae (pneumococcus)] Arnie Linda Other [facility] [employer] Other 05-26-2016 pneumococcal conjuga te vaccine, 13 valent Arnie Linda Other [facility] 07-08-2015 influenza virus vaccine, split virus (incl. purified surface antigen) Arnie Linda Other [employer] Other 07-08-2015 influenza virus vaccine, unspecified formulation DO Arnie Linda Work Phone: [facility] 08-02-2013 tetanus and diphther ia toxoids, adsorbed, preservative free, for adult use (5 Lf of tetanus toxoid and 2 Lf of diphtheria toxoid) Arnie Linda Other [facility] 08-02-2013 pneumococcal polysaccharide vaccine, 23 valent Arnie Linda Other [facility] 07-16-2013 pneumococcal conjuga te vaccine, 13 valent Randall Deleon DO Work Phone: [facility] 06-27-2012 tetanus and diphther ia toxoids, adsorbed, preservative free, for adult use (5 Lf of tetanus toxoid and 2 Lf of diphtheria toxoid) Arnie Linda Other [facility] Payers Date Payer Category Payer Unknown AARP AARP [id number] 2022-Present [address] [place] [address] [id number] 2021 Managed Care Other (unspecified) [facility] [id number] 2021 Private Health Insurance [id number] .[id number] 2007 Medicare [id number]. 1.13.693.2 .[id number] 1959 Medicare [id number] 1959 Self-pay [id number] 1959 Unknown [id number] 1942 Unknown [id number] 2.16.840.1.320688.3.579.2 .647 1942 Unknown [id number] 2.16.840.1.057014.3.579.2 .593 1942 Unknown [id number] 2.16.840.1.752999.3.579.2 .593 1942 Unknown [id number] 2.16.840.1.183007.3.579.2 .593 1942 Unknown [id number] 2.16.840.1.778766.3.579.2 .593 1942 Unknown [id number] 2.16.840.1.606165.3.579.2 .593 1942 Unknown [id number] 2.16.840.1.048614.3.579.2 .593 1942 Unknown [id number] 2.16.840.1.102729.3.579.2 .593 1942 Unknown [id number] 2.16.840.1.157247.3.579.2 .593 1942 Unknown [id number] 2.16.840.1.098587.3.579.2 .593 1942 Unknown [id number] 2.16.840.1.068473.3.579.2 .593 1942 Unknown [id number] 2.16.840.1.779002.3.579.2 .593 1942 Unknown [id number] 2.16.840.1.056758.3.579.2 .593 1942 Unknown [id number] 2.16.840.1.428592.3.579.2 .593 1942 Unknown [id number] 2.16.840.1.672168.3.579.2 .593 1942 Unknown [id number] 2.16.840.1.503712.3.579.2 .593 1942 Unknown [id number] 2.16.840.1.728465.3.579.2 .593 1942 Unknown [id number] 2.16.840.1.571869.3.579.2 .593 1942 Unknown [id number] 2.16.840.1.491725.3.579.2 .593 1942 Unknown [id number] 2.16.840.1.717879.3.579.2 .593 1942 Unknown [id number] 2.16.840.1.577869.3.579.2 .593 1942 Unknown [id number] 2.16.840.1.877837.3.579.2 .593 1942 Unknown [id number] 2.16.840.1.179052.3.579.2 .1259 1942 Unknown [id number] 2.16.840.1.991491.3.579.2 .1259 1942 Unknown [id number] 2.16.840.1.472520.3.579.2 .1259 1942 Unknown [id number] 2.16.840.1.311639.3.579.2 .1259 Unknown [id number] 2.16.840.1.630745.3.579.2 .593 Unknown [id number] 2.16.840.1.129424.3.579.2 .531 Unknown [id number] 2.16.840.1.177510.3.579.2 .531 Social History Date Type Detail Facility Start: 06-03-2022 End: 07-09-2024 Tobacco smoking status NHIS Ex-smoker (finding) [facility] Start: 1940 Sex Assigned At Male [facility] Start: 07-08-2024 End: 07-09-2024 Sex Assigned At [facility] [employer] Other History of tobacco use Current smoker [facility] History of tobacco use Cigarette Smoker N [facility] Start: 06-01-2023 End: 07-09-2024 Tobacco use and exposure Smokeless tobacco non-user [facility] Start: 07-08-2024 End: 07-09-2024 Alcoholic beverage intake Current drinker of alcohol (finding) [facility] Start: 07-08-2024 End: 07-09-2024 History of Social function [facility] Frequency of Alcohol Consumption Not on file [facility] How many standard drinks containing alcohol do you have on a typical day? 1 or 2 [facility] How often do you hav e 6 or more drinks on 1 occasion? Never [facility] Start: 07-08-2024 Alcohol Comment caffeine: none [facility] Start: 1940 Sex assigned at Not on file [facility] Start: 08-18-2023 Gender identity Identifies as male gender (finding) [facility] Start: 10-05-2023 End: 08-08-2024 Alcoholic beverage intake Ex-drinker (finding) [facility] Start: 05-21-2015 Sex Male (finding) [facility] Medical Equipment Procedure Code Equipment [...] picked up supplies documented in this encounter [facility] 11-13-2024 Note Cardiovascular Medic [facility] SUBJECTIVE Chief Complaint Patient presents with Atrial [...] OCCASIONAL Drug use: Never Allergies Allergen Reactions Mcdjsmh-Wjn-Ssb Reductase Inhibitors Tramadol ROS Cardiovascular: Positive for [...] intact. Pupils: Pupi (more content not included)... [facility] 11-13-2024 Note Patient here for [facility] low up DCCV on 10/17/[address] Montoya. Denies chest pain, SOB, palpitations, lightheadedness/syncope, and bleeding on Eliquis. Review of Systems Hematologic/Lymphatic: Bruises/bleeds easily. All other systems reviewed and are negative. [facility] 10-17-2024 Note DIRECT CARDIOVERSION PROCEDURE NOTE [...] Continue anticoagulation. Mariusz Montoya MD Cardiac Electrophysiology [facility] 10-17-2024 Note Patient: Nas guzman Procedure Information Date/Time: 10/17/24 1230 Procedure: Cardioversion - PC APPROVED Location: [facility]NA[facility] HOLDING ROOM / [facility] (Cath) Providers: Mariusz Montoya MD Clinical information reviewed: Allergies Meds Physical Exam Airway Mallampati: II TM distance: >3 FB Neck ROM: full Cardiovascular Dental Pulmonary Abdominal Anesthesia Plan ASA 3 CSE Anesthetic plan and risks discussed with patient. Use of blood products discussed with patient who. Additional Equipment Requests [facility] 09-10-[address] [facility] 09-10-2024 Note [place] Electrophysiology Consult Note Reason for visit: Afib and dilated CMP. 09/10/24 Patient underwent INSURANCE MANAGER-D upgrade procedure on 06/12/2023. Subsequent echocardiogram in [...] infrahisian disease. He was brought back to [facility] on 02/12/2020 due to what was discussed [...] Laterality Date CARD (more content not included)... [facility] 08-21-2024 History of Present illness Narrative [...] time if needed. documented in this encounter [facility] 08-12-2024 Note Pt is getting a colo noscopy in early August, is it alright to hold eliquis for two days prior to procedure? [facility] 08-08-2024 History of Present illness Narrative [...] Follows with Dr. Rodriguez Pulmonary medicine in [place] 60% Left renal artery stenosis noted in the past Decreased left ventricular function ejection fraction 30%. 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 His most recall his echo on 09/11/2023 showed an EF of 25-30%. He is no longer requiring a life vest. He is status post upgrade of permanent pacemaker to defibrillator an additional lead placement at the [facility] June 07, 2023. Grade 1 left ventricular diastolic dysfunction. Mild tricuspid regurgitation Mild mitral regurgitation Atrial flutter status post SUSAN cardioversion at [facility] in July of 2019.He did undergo an ablation after a hospital stay in October 2019. He is on anticoagulation with reduced dose Eliquis 2.5 mg p.o. b.I.d. 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 Adenocarcinoma the colon status post colectomy with reanastomosis in [place] August 2021. Being followed by Oncology with [...] Interpersonal Safety: Unknown (12/07/2023) Received from [facility] Safety & Environment Fear of Current or Ex-Partner: Not on file Emotionally Abused: Not on file Physically Abused: Not on file Sexually Abused: Not on file Physically or Sexually Abused: Not on file Housing Instability: Not on file Family History: Family History Problem Relation Age of Onset Diabetes Mother Hypertension Mother Diabetes Father Hypertension Father Allergies & Medications Allergies: Allergies Allergen Reactions Tcgltkz-Ezn-Zlt Reductase Inhibitors Current Meds: Current Outpatient Medications [...] results found for: IRONSAT , FERRITIN , [id number] , FOLATE Mineral and Bone Labs: No [...] of your patients! Please contact me at [phone] (Office) or [phone] (Answering service) with any questions. AVERY SYED MD [facility] This note was created with the assistance of a speech-recognition program. Although the intention is to generate a document that actually reflects the content of the visit, no guarantees can be provided that every mistake has been identified and corrected by editing. AVERY SYED MD,PhD FACP [facility] ANY QUESTIONS FEEL FREE TO CALL: 1. OFFICE [phone] 2. ANSWERING SERVICE: [phone] documented in this encounter [employer] 07-24-2024 Note Pt is here for a fol low up from [facility] ER. Pt denies sob, chest pain, and palpatations. Review of Systems Cardiovascular: Positive for leg swelling. Hematologic/Lymphatic: Bruises/bleeds easily. All other systems reviewed and are negative. [facility] 07-24-2024 Note Cardiovascular Medic ine [place] [facility] SUBJECTIVE Chief Complaint Patient presents with Atrial Fibrillation Coronary Artery Disease Nas Ren is a 84 y.o. male here for follow-up. HPI PMHx: chronic systolic heart failure, persistent afib, CAD, hypertension, and dilated cardiomyopathy s/p ICD He was in the ER last week for c/o low BP and dizziness. He went to [facility] and they told him he was [...] List Diagnosis Stage 3 chronic kidney disease ([facility]/HCC) Bacteremia Chronic systolic heart failure ([facility]) Dyslipidemia Edema of lower extremity Hyperlipidemia Hypertensive disorder Left ventricular systolic dysfunction Osteomyelitis of vertebra ([facility]/HCC) Paroxysmal atrial flutter ([facility]) Proteinuria Type 2 diabetes mellitus ([facility]) COPD (chronic obstructive pulmonary disease) ([facility]) Dilated cardiomyopathy ([facility]) Statin intolerance Stage 4 chronic kidney disease ([facility]/HCC) Chronic bronchitis, simple ([facility]/HCC) Chronic venous insufficiency Constipation Hyperlipidemia type II Hypothyroidism due to medication Impaired mobility and activities of daily living Iron deficiency anemia Colon cancer ([facility]/HCC) Mucopurulent chronic bronchitis ([facility]/HCC) Obstructive sleep apnea Pacemaker A-fib ([facility]) Psoas abscess, right ([facility]/HCC) Pulmonary hypertension ([facility]/HCC) Thyrotoxicosis Type 2 diabetes mellitus with hyperglycemia ([facility]) Past Medical History: Diagnosis Date Arrhythmia CHF (congestive heart failure) ([facility]/HCC) Chronic kidney disease Family History Problem Relation Name Age of Onset Diabetes Mother Heart disease Father Glaucoma Brother Diabetes Maternal Grandmother Clotting disorder Other Social History Tobacco Use Smoking status: Former Types: Cigarettes Quit date: 1981 Years since quittin.8 Smokeless tobacco: Never Substance Use Topics Alcohol use: Yes Comment: OCCASIONAL Drug use: Never Allergies Allergen Reactions Lqwisrt-Ffk-Cou Reductase Inhibitors Tramadol ROS Cardiovascular: Positive for [...] 500 mg tablet, (more content not included)... [facility] 07-09-2024 History of Present illness Narrative [...] was councelled on the risks of stroke, OH, and sudden with MOLINA, along with the [...] clinic: 1 year documented in this encounter [facility] 04-29-2024 Miscellaneous Notes Pts called to schedule July f/u appt in [place] with [facility]. Scheduled f/u appt and reminded to get labs 10 days prior. documented in this encounter [facility] 04-29-2024 Telephone encounter Note Pts called to schedule July f/u appt in [place] with [facility]. Scheduled f/u appt and reminded to get labs 10 days prior. [facility] 03-29-2024 Note [place] Cardiology - [facility] Subjective Nas Ren is a 83 y.o. year old male patient being seen for 6 mo follow up chronic systolic heart failure, persistent afib, CAD, hypertension, and dilated cardiomyopathy s/p ICD. His device was interrogated last month, and he had lipid profile in December 2023. His systems applications programming lead switched him from Bumex to Lasix due [...] Judgment: Judgment normal. Allergies Allergies Allergen Reactions Zpppqny-Adp-Zfp Reductase Inhibitors Tramadol Medications Current Outpatient Medicat (more content not included)... [facility] 02-08-2024 History of Present illness Narrative [...] Follows with Dr. Rodriguez Pulmonary medicine in [place] 60% Left renal artery stenosis noted in the past Decreased left ventricular function ejection fraction 30%. 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 His most recall his echo on 09/11/2023 showed an EF of 25-30%. He is no longer requiring a life vest. He is status post upgrade of permanent pacemaker to defibrillator an additional lead placement at the [facility] June 07, 2023. Grade 1 left ventricular diastolic dysfunction. Mild tricuspid regurgitation Mild mitral regurgitation Atrial flutter status post SUSAN cardioversion at [facility] in July of 2019.He did undergo an ablation after a hospital stay in October 2019. He is on anticoagulation with reduced dose Eliquis 2.5 mg p.o. b.I.d. 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 Adenocarcinoma the colon status post colectomy with reanastomosis in [place] August 2021. Being followed by Oncology with [...] Interpersonal Safety: Unknown (12/07/2023) Received from [facility] Safety & Environment Fear of Current or Ex-Partner: Not on file Emotionally Abused: Not on file Physically Abused: Not on file Sexually Abused: Not on file Physically or Sexually Abused: Not on file Housing Instability: Not on file Family History: Family History Problem Relation Age of Onset Diabetes Mother Hypertension Mother Diabetes Father Hypertension Father Allergies & Medications Allergies: Allergies Allergen Reactions Zdzynnh-Ngs-Pay Reductase Inhibitors Current Meds: Current Outpatient Medications [...] results found for: IRONSAT , FERRITIN , [id number] , FOLATE Mineral and Bone Labs: No [...] of your patients! Please contact me at [phone] (Office) or [phone] (Answering service) with any questions. AVERY SYED MD [facility] This note was created with the assistance of a speech-recognition program. Although the intention is to generate a document that actually reflects the content of the visit, no guarantees can be provided that every mistake has been identified and corrected by editing. documented in this encounter [facility] 02-08-2024 Instructions Avery Syed MD - 02/08/2024 10:30 AM EDT Return in 6 months documented in this encounter [facility] 01-26-2024 Miscellaneous Notes Confirm appt with patient for 02/07 as well remind to have labs done 10-7 days before apt documented in this encounter [facility] 01-26-2024 Telephone encounter Note Confirm appt with patient for 02/07 as well remind to have labs done 10-7 days before apt [facility] 12-18-2023 Evaluation note Encounter Date Diagnosis Assessment Notes Dec, Thyrotoxicosis (ICD-10 - E05.90) Dec, 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 No bleeding complications Aug, Mucopurulent chronic bronchitis [...] use, the patient reduces the risk for OH, CVA, HTN, cardiac dysrhythmias and sudden cardiac [...] the risk for cerebrovascular and cardiovascular disease. [employer] Other 09-07-2023 Evaluation note* Encounter Date Diagnosis Assessment Notes Treatment Notes Treatment Clinical Notes Jun, Hypothyroidism due t o medication (ICD-10 - E03.2) [employer] Other 07-06-2023 Evaluation note* Encounter Date Diagnosis [...] use, the patient reduces the risk for OH, CVA, HTN, cardiac dysrhythmias and sudden cardiac [...] are maintaining regular scheduled appts with their mortician investigator. No bleeding compliations Initiated on [employer] Other 05-30-2023 Evaluation note* Encounter Date Diagnosis Assessment Notes Treatment Notes Treatment Clinical Notes February, Hypothyroidism due t o medication (ICD-10 - E03.2) [employer] Other 05-19-2023 Progress [facility] March 03, 2023 2:31pm Note Date/Time March 03, 2023 2:21p m [facility] at [address] [address] Hem/Onc Follow Up Note - OP Signed Patient: Nas Ren MR#: [id number] : 1940 Acct:[id number] Age/Sex: 82 / M Type: REG RCR [...] for coordination of care (as documented) and dvdc-kn-smnp counseling of patient and/or family. [facility] - Medical History Medical History: Medical [...] Calcium 8.8, Iron 56, TIBC 281, Iron Djcbqgnmjg36.9 L, Transferrin 201 L, Ferritin 236.7, Total [...] % (Auto) 68.3, Lymph % (Auto) 17.9, Otoe % (Auto) 9.6, Eos % (Auto) 3.6, Baso % (Auto) 0.6, Nucleat RBC Rel Count 0.3, Neut # (Auto) 6.6, Lymph # (Auto) 1.7, Otoe # (Auto) 0.9 H, Eos # (Auto) 0.3, Baso # (Auto) 0.1 - Home Medications and Allergies Allergies/Adverse Reactions: Allergies Uvtsytb-RXR-ZzP Reductase Inhibitor [Nehtxun-Phe-Wbt Reductase Inhibitor] Allergy (Verified 03/03/23 13:45) Muscle [...] <Electronically signed by EDWARD Nelson> 03/03/23 1431 [facility] Work Phone: 1(472) 867-775405-02-2023 Evaluation note* Encounter Date Diagnosis Assessment Notes Treatment Notes Treatment Clinical Notes February, Thyrotoxicosis (ICD-10 - E05.90) [employer] Other 03-29-2023 Evaluation note* Encounter Date Diagnosis [...] cardiomyopathy (ICD-10 - I42.0) Continue healthy diet. [employer] Other 03-02-2023 Evaluation note* Encounter Date Diagnosis [...] use, the patient reduces the risk for OH, CVA, HTN, cardiac dysrhythmias and sudden cardiac [...] Z12.5) Dec, Cardiac pacemaker (ICD-10 - Z95.0) [employer] Other 01-30-2023 Evaluation note* Encounter Date Diagnosis Assessment Notes Treatment Notes Treatment Clinical Notes Oct, Other thyrotoxicosis without thyrotoxic crisis or storm (ICD-10 - E05.80) [employer] Other 11-18-2022 Progress note Author Chivo Keller [facility] September 02, 2022 2:38pm Note Date/Time September 02, 2022 2:33pm [facility] at [address] [address] Hem/Onc Follow Up Note - OP Signed Patient: Nas Ren MR#: [id number] : 1940 Acct:[id number] Age/Sex: 82 / M Type: REG RCR [...] for coordination of care (as documented) and vdcj-ac-xbuu counseling of patient and/or family. [facility] - Medical History Medical History: Medical [...] % (Auto) 68.3, Lymph % (Auto) 18.5, Otoe % (Auto) 8.4, Eos % (Auto) 4.3, Baso % (Auto) 0.5, Neut # (Auto) 4.6, Lymph # (Auto) 1.2, Otoe # (Auto) 0.6, Eos # (Auto) 0.3, Baso # (Auto) 0.0, Nucleated RBC % (auto) 0.1 - Home Medications and Allergies Allergies/Adverse Reactions: Allergies Qidshfr-DEV-RlW Reductase Inhibitor [Rvmhdnq-Elu-Woh Reductase Inhibitor] Allergy (Verified 09/02/22 14:10) Muscle [...] Dictated By: Chivo Keller II, DO DD/ [id number] Signed By: <Electronically signed by Chivo Keller II, DO> 09/02/22 1430 [facility] Work Phone: 1([phone]) 494-594810-06-[address] Progress note Author Leigha Nelson [facility] June 03, 2022 10:35am Note Date/Time June 03, 2022 10 :10am [facility] [place] [address] Hem/Onc Follow Up Note - OP Signed Patient: Nas Rne MR#: [id number] : 1940 Acct:[id number] Age/Sex: 82 / M Type: REG RCR [...] for coordination of care (as documented) and gyli-vy-bafp counseling of patient and/or family. [facility] - Medical History Medical History: Medical History (Last Updated 06/03/22 @ 09:58 by Celai Barron) A-fib hx ablation Anemia Arthritis CHF [...] % (Auto) 69.9, Lymph % (Auto) 17.2, Otoe % (Auto) 8.0, Eos % (Auto) 4.1, Baso % (Auto) 0.8, Neut # (Auto) 6.2, Lymph # (Auto) 1.5, Otoe # (Auto) 0.7, Eos # (Auto) 0.4, Baso # (Auto) 0.1, Nucleated RBC % (auto) 0.0 - Home Medications and Allergies Allergies/Adverse Reactions: Allergies Mpymfgl-JBO-QqR Reductase Inhibitor [Zsvbwsn-Odu-Gjb Reductase Inhibitor] Allergy (Verified 06/03/22 09:55) Muscle [...] <Electronically signed by EDWARD Nelson> 06/03/22 [address] [facility] Work Phone: 1(264) 552-934706-18-2022 NoteMR#: [id number] I [facility] Pt. Name: Nas Ren Admitted: 03/30/2022 Discharged: 04/02/2022 Date of : 1940 Physician: Gilmer Salazar MD DISCHARGE SUMMARY CONSULTING SERVICES: 1. Nephrology Service. 2. Endocrinology service. 3. Cardiology service. PRINCIPAL DIAGNOSES: 1. Igvil-og-issprar heart failure, reduced ejection fraction of 35%. 2. Acute kidney injury on chronic kidney disease, stage 4, resolved. 3. Dyspnea, on exertion. 4. Essential hypertension. 5. History of coronary artery disease. 6. Iodine-induced hyperthyroidism, uncontrolled. 7. Bhw-zthopmx-pfaubdsam diabetes mellitus, diet controlled, A1c 6.4. 8. [...] is a 81-year-old male who presented to [facility] with chief complaint of dyspnea on [...] overload occurs, he is to call his mortician investigator and/or PCP. The patient also require repeat [...] Adler PA-C Date Trans: 04/02/2022 02:36 P/hans [id number] cc: Arnie Linda D.O. [address] [place] [address] A [facility] [id number] [facility]05-21-2022 NotePROCEDURE: XR CHEST 1 V REASON FOR [...] effusion or pneumothorax. Electronically authenticated by: NICK OLMDEO Date: 2022-03-05 21:29[facility]05-15-2022 Progress note Author Chivo Keller [facility] February 27, 2022 12:52pm Note Date/Time February 25, 2022 12:11 pm [facility] at [address] [address] Hem/Onc Follow Up Note - OP Signed Patient: Nas Ren MR#: [id number] : 1940 Acct:[id number] Age/Sex: 81 / M Type: REG RCR [...] for coordination of care (as documented) and asbk-kx-uxsx counseling of patient and/or family. [facility] - Medical History Medical History: Medical [...] % (Auto) 65.1, Lymph % (Auto) 19.2, Otoe % (Auto) 13.3, Eos % (Auto) 1.8, Baso % (Auto) 0.6, Neut # (Auto) 4.2, Lymph # (Auto) 1.2, Otoe # (Auto) 0.9H, Eos # (Auto) 0.1, [...] Home Medications and Allergies Allergies/Adverse Reactions: Allergies Cdkdceo-GLR-FiX Reductase Inhibitor [Zgaafxr-Eyy-Faj Reductase Inhibitor] Allergy (Verified 02/25/22 11:39) Muscle [...] [address] [facility] Work Phone: 1(631) 167-398011-16-2021 Consult note Author Nikunj Shultz [facility] August 31, 2021 9:50am Note Date/Time August 31, 2021 9:33am [facility] [place] [address] Hem/Onc Consult Note - OP Signed Patient: Nas Ren MR#: [id number] : 1940 Acct:[id number] Age/Sex: 81 / M Type: REG RCR [...] 2021. He has recovered well from surgery. [facility] - Medical History Medical History: Medical [...] Type: None Home Medications & Allergies Allergies Ntkllyt-REL-YwN Reductase Inhibitor [Sacphnt-Qwn-Utm Reductase Inhibitor] Allergy (Verified 08/31/21 08:57) Muscle [...] or Bravo syndrome. I will discuss with [facility] genetics and refer the patient for genetic testing. - Time with Patient Coordination of Care & Counseling Time: Greater than 50% of time spent with patient was for coordination of care (as documented) and teqa-sw-hyjq counseling of patient and/or family. Dictated By: Nikunj Shultz MD DD/ Signed By: <Electronically signed by MD Nikunj Shultz> 08/31/21 [address] [facility] Work Phone: Evaluation note* Diagnosis Onset Date Resolution Status Colon cancer acute [facility] Work Phone: Evaluation noteNo [email or web address] Other Evaluation note* Diagnosis Onset Date Resolution [...] antigen) noneactive Colon cancer acute [facility] Work Phone: Evaluation note* Diagnosis [...] diabetes mellitus with hyperglycemia acute [facility] Work Phone: Evaluation note* Diagnosis Bilateral impacted cerumen- Primary Impacted cerumen documented in this encounter [facility] HealthcareEvaluation note* Diagnosis MOLINA (obstructive sleep apnea)- Primary Obstructive sleep apnea (adult) (pediatric) Hypersomnia Hypersomnia, unspecified Primary insomnia Persistent disorder of initiating or maintaining sleep Snoring Other dyspnea and respiratory abnormality Hypoxia Hypoxemia documented in this encounter [facility] HealthcareEvaluation note* Diagnosis Stage 4 chronic kidney disease (CMS-HCC)- Primary documented in this encounter [facility] SystemEvaluation note* Diagnosis Stage 4 chronic kidney disease (CMS-HCC)- Primary documented in this encounter [facility] SystemEvaluation note* Diagnosis Sensorineural hearing loss (SNHL) of both ears- Primary documented in this encounter [facility] HealthcareHistory and physical note Author Ramesh Rascon [facility] July 21, 2022 9:27am Note Date/Time July 21, 2022 9: 27am [facility] [address] [place] [address] Gastroenterology H&P Signed Patient: Nas Ren MR#: [id number] : 1940 Acct:[id number] Age/Sex: 82 / M Adm Date: 2 Loc: Room: Type: [facility] Attending Dr: Ramesh Rascon MD Copies [...] <Electronically signed by Ramesh Rascon MD> 07/21/22926 [facility] Work Phone: History general Narrative - Reported* [...] HEART CATH 04/2016 Hospitalization History See above [employer] Other History general Narrative - Reported* Type [...] in year 07/2022 Hospitalization History See above [employer] Other History general Narrative - Reported* Type [...] Biventricular ICD 05/2023 Hospitalization History See above [employer] Other Hospital Discharge instructions Additional Instructions DISCHARGE [...] Follow up with PCP. - Office number [phone].[facility] Work Phone: InstructionsNot on filedocumented in this encounter [facility] SystemInstructionsNot on filedocumented in this encounter [facility] SystemProgress note Author Leigha Nelson [facility] June 03, 2022 10:35am Note Date/Time June 03, 2022 10 :10am [facility] [place] [id number] Hem/Onc Follow Up Note - OP Signed Patient: Nas Ren MR#: [id number] : 1940 Acct:[id number] Age/Sex: 82 / M Type: REG RCR [...] for coordination of care (as documented) and twwz-lq-wpyr counseling of patient and/or family. [facility] - Medical History Medical History: Medical [...] % (Auto) 69.9, Lymph % (Auto) 17.2, Otoe % (Auto) 8.0, Eos % (Auto) 4.1, Baso % (Auto) 0.8, Neut # (Auto) 6.2, Lymph # (Auto) 1.5, Otoe # (Auto) 0.7, Eos # (Auto) 0.4, Baso # (Auto) 0.1, Nucleated RBC % (auto) 0.0 - Home Medications and Allergies Allergies/Adverse Reactions: Allergies Ffzhuyc-TQU-KtX Reductase Inhibitor [Frrldyc-Dsp-Ddw Reductase Inhibitor] Allergy (Verified 06/03/22 09:55) Muscle [...] <Electronically signed by EDWARD Nelson> 06/03/22 1035 [facility] Work Phone: Progress note Author Chivo Keller [facility] September 02, 2022 2:38pm Note Date/Time September 02, 2022 2:33pm [facility] [place] [address] Hem/Onc Follow Up Note - OP Signed Patient: Nas Ren MR#: [id number] : 1940 Acct:[id number] Age/Sex: 82 / M Type: REG RCR [...] for coordination of care (as documented) and rhhu-sx-kwtm counseling of patient and/or family. [facility] - Medical History Medical History: Medical [...] % (Auto) 68.3, Lymph % (Auto) 18.5, Otoe % (Auto) 8.4, Eos % (Auto) 4.3, Baso % (Auto) 0.5, Neut # (Auto) 4.6, Lymph # (Auto) 1.2, Otoe # (Auto) 0.6, Eos # (Auto) 0.3, Baso # (Auto) 0.0, Nucleated RBC % (auto) 0.1 - Home Medications and Allergies Allergies/Adverse Reactions: Allergies Zxyfknb-HBE-ExM Reductase Inhibitor [Ihpbiwb-Jvq-Fgk Reductase Inhibitor] Allergy (Verified 09/02/22 14:10) Muscle [...] 2:14pm Note Date/Time September 01, 2023 2:09pm [facility] [place] [address] Hem/Onc Follow Up Note - OP Signed Patient: Nas Ren MR#: [id number] : 1940 Acct:[id number] Age/Sex: 83 / M Type: REG RCR [...] for coordination of care (as documented) and hyma-zi-ebtv counseling of patient and/or family. [facility] - Medical History Medical History: Medical [...] Calcium 9.7, Iron 84, TIBC 290, Iron Ycncdsnkku09.0, Transferrin 207, Ferritin 239.3, Total Bilirubin 0.8, AST 23, ALT 20, Alkaline Phosphatase 114 H, Total Protein 6.9, Albumin 4.4, Globulin 2.5, Albumin/Globulin Ratio 1.8 08/30/23 09:32: Corrected WBC 7.0, Uncorrected WBC Count 7.0, RBC 3.96, Hgb 12.3L, Hct 36.8 L, MCV 92.8, MCH 30.9, MCHC 33.3, RDW 14.8, Plt Count 206, MPV 7.6, Neut % (Auto) 65.9, Lymph % (Auto) 21.9, Otoe % (Auto) 7.9, Eos % (Auto) 3.8, Baso % (Auto) 0.5, Nucleat RBC Rel Count 0.1, Neut # (Auto) 4.6, Lymph # (Auto) 1.5, Otoe # (Auto) 0.5, Eos # (Auto) 0.3, Baso # (Auto) 0.0 - Home Medications and Allergies Allergies/Adverse Reactions: Allergies Xjvrnuq-LFZ-GyJ Reductase Inhibitor [Zhopnmo-Vak-Uko Reductase Inhibitor] Allergy (Verified 03/03/23 13:45) Muscle [...] Note Date/Time March 01, 2024 11:18 am [facility] [place] [address] Cancer Center Note Signed Patient: Nas Ren MR#: [id number] : 1940 Acct:[id number] Age/Sex: 83 / M Type: REG AMB [...] Allergy (Unknown, Verified 12/18/23 10:02) Unknown Reaction Jrsbqic-REP-TjJ Reductase Inhibitor [Ypwgblo-Hdo-Akc Reductase Inhibitor] Allergy (Unknown, Verified 12/18/23 10:02) [...] PO DAILY ezetimibe 10 mg PO DAILY spvrvoctvmw-eosrkfyqk-kjavnrhs 200-62.5-25 mcg (Trelegy Ellipta) 1 inh inhalation [...] No concerns voiced at time of intake. [facility] Medical History Medical History (Updated 01/30/24 [...] Keller II, DO> 03/01/24 1139 [facility] Work Phone: Summary Purpose Family [...] section and content) DATE CREATED AUTHOR 07/09/2021 [facility] DATE CREATED AUTHOR AUTHOR'S ORGANIZ ATION 06/10/2022 [facility] DATE CREATED AUTHOR AUTHOR'S ORGANIZ ATION 03/01/2023 [facility] DATE CREATED AUTHOR AUTHOR'S ORGANIZ ATION 08/24/2024 [facility] DATE CREATED AUTHOR AUTHOR'S ORGANIZ ATION 11/25/[address] [facility] DATE CREATED AUTHOR AUTHOR'S ORGANIZ ATION 12/06/2024 [facility] Care Teams (unrecognized sec tion and content) [...] Active Ramesh Rascon MD Attending Provider Active Pollution Control Technician Relationship Specialty Start Date End Date Arnie Linda MD [address] [place] [id number] PCP - General Internal Medicine 08/24/23 Pollution Control Technician Relationship Specialty Start Date End Date Arnie Linda MD [address] [place] [phone] PCP - General Internal Medicine 08/24/23 Pollution Control Technician Relationship Specialty Start Date End Date Arnie Linda MD [address] [place] [id number] PCP - General Internal Medicine 08/24/23 Pollution Control Technician Relationship Specialty Start Date End Date Arnie Linda DO [address] [place] [address] PCP - General Internal Medicine 11/11/21 Pollution Control Technician Relationship Specialty Start Date End Date Arnie Linda DO [address] [place] [address] PCP - General Internal Medicine 11/11/21 Pollution Control Technician Relationship Specialty Start Date End Date Arnie Linda DO [address] [place] [address] PCP - General Internal Medicine 11/11/21 Pollution Control Technician Relationship Specialty Start Date End Date Arnie [...] BE BASED ON THE PRIMARY CLINICAL RECORDS. [employer] provides no warranty or guarantee of the accuracy or completeness of information in this document.
--- NOTE | 2024-12-21 16:58 | ECG_ITS ---
[facility] Test Date: 2024-12-21 Pat Name: DELANO REN Department: Room: - Gender: Male [employer]: : 1940 Requested By: [id number] Order Number: [id number] Reading MD: DAWN DEY M.D. Measurements Intervals [place] Rate: 70 P: 90 HI: 178 QRS: 135 QRSD: 146 T: 2 QT: 456 QTc: 476 Interpretive Statements [id number] Electronic atrial pacemaker [id number] Electronic ventricular pacemaker [employer]IFACT Abnormal ECG Compared to ECG 07/17/2024 18:21:58 Atrial flutter is no longer seen Electronically Signed On 12-21-2024 19:23:03 EST by DAWN DEY M.D.
[2024-12-21] MEDS: ONDANSETRON PF 4 MG/2 ML VIAL IV (17:19)
[2024-12-21] MEDS: 0.9 % SODIUM CHLORIDE 1,000 ML 125 ML IV (17:19)
[2024-12-21] MEDS: HYDROMORPHONE HCL 0.5 MG/0.5 ML SYRINGE IV (17:19)
[2024-12-21 17:54] LABS: Basophils Percent Auto 0.2 % (0.2-2.0); Eosinophils Absolute Auto 0.3 10^3/uL (0.0-0.7); Eosinophils Percent Auto 3.1 % (0.9-7.0); Hematocrit 35.6 % (42.0-54.0); Hemoglobin 11.8 g/dL (14.0-18.0); Immature Granulocytes Abs Auto 0.07 10^3/uL (0.00-0.03); Immature Granulocytes Pct Auto 0.9 % (0.0-0.5); Lymphocytes Absolute Auto 1.3 10^3/uL (1.2-3.8); Lymphocytes Percent Auto 15.6 % (20.5-60.0); Mean Corpuscular HGB Conc 33.1 g/dL (29.9-35.2); Mean Corpuscular Hemoglobin 32.2 pg (25.9-34.0); Mean Platelet Volume 9.2 fL (9.5-13.5); Monocytes Absolute Auto 0.7 10^3/uL (0.3-0.8); Monocytes Percent Auto 8.4 % (1.7-12.0); Neutrophils Absolute Auto 5.8 10^3/uL (1.4-6.5); Neutrophils Percent Auto 71.8 % (43.0-75.0); Platelet Count 178 10^3/uL (150-450); Red Blood Count 3.67 10^6/uL (4.70-6.10); Red Cell Distribution Width 13.4 % (11.0-15.0); White Blood Count 8.1 10^3/uL (4.0-11.0)
[2024-12-21 18:16] LABS: INR 1.04; Partial Thromboplastin Time 29.2 sec (22.3-36.2)
[2024-12-21 18:20] LABS: Alanine Aminotransferase 22 U/L (16-63); Albumin Level 3.7 g/dL (3.4-5.0); Alkaline Phosphatase 110 U/L (46-116); Anion Gap 15.9; Aspartate Amino Transferase 19 U/L (15-37); BUN Creatinine Ratio 20.8; Bilirubin Total 0.5 mg/dL (0.2-1.0); Calcium 8.7 mg/dL (8.5-10.1); Carbon Dioxide 30.8 mmol/L (21.0-32.0); Chloride 102 mmol/L (98-107); Estimated GFR (African America 22 (>=60 mL/min/1.73m^2); Estimated GFR (Non-African Ame 18 (>=60 mL/min/1.73m^2); Globulin 3.6 g/dL; Glucose 101 mg/dL (74-106); Potassium 3.7 mmol/L (3.5-5.1); Sodium 145 mmol/L (136-145); Total Protein 7.3 g/dL (6.4-8.2); Troponin I High Sensitivity 25.8 pg/mL (4.0-76.1)
--- NOTE | 2024-12-21 18:39 | ED_ITS ---
Documented by User: Johnnie Garcia MD 12/21/24 18:43 HPI HPI - General Adult General Chief complaint: Fall Stated complaint: FALL, R HIP PAIN Time Seen by Provider: 12/21/24 16:37 Source: patient Mode of arrival: ambulance Limitations: no limitations History of Present Illness HPI narrative: Patient slipped and fell down 2 steps in his garage landing on his right side. He complains of right hip pain. His son-in-law found him and helped him onto a wheelchair inside the house. EMS was activated and he presents to the ED by ambulance. He complains of pain mainly in the right hip region. Patient denies injuring the head or neck and denies any injury to his other extremities. He has a past history of atrial fibrillation. He has an ICD in place and he also takes Eliquis. His last dose was this morning. Related Data Home Medications ?Medication ?Instructions ?Recorded ?Confirmed allopurinol 100 mg tablet 100 mg PO DAILY 07/17/24 12/21/24 amlodipine 10 mg tablet 10 mg PO DAILY 07/17/24 12/21/24 apixaban 2.5 mg tablet (Eliquis) 2.5 mg PO BID 07/17/24 12/21/24 ezetimibe 10 mg tablet 10 mg PO DAILY 07/17/24 12/21/24 fluticasone fur. 200 mcg-umeclid 1 inh inhalation DAILY 07/17/24 12/21/24 62.5 mcg-vilant 25 mcg inhalat.powder (Trelegy Ellipta) furosemide 80 mg tablet 80 mg PO DAILY 07/17/24 12/21/24 hydralazine 100 mg tablet 100 mg PO TID 07/17/24 12/21/24 isosorbide dinitrate 10 mg tablet 10 mg PO TID 07/17/24 12/21/24 metoprolol succinate 100 mg 100 mg PO DAILY 07/17/24 12/21/24 tablet,extended release 24 hr niacin 500 mg tablet 500 mg PO DAILY 07/17/24 12/21/24 potassium chloride 10 mEq 10 meq PO DAILY 07/17/24 12/21/24 tablet,extended release(part/cryst) amiodarone 200 mg tablet 200 mg PO Q24H 12/21/24 12/21/24 cholecalciferol (vitamin D3) 125 5,000 unit PO DAILY 12/21/24 12/21/24 mcg (5,000 unit) capsule losartan 25 mg tablet 25 mg PO QDAY 12/21/24 12/21/24 Allergies Allergy/AdvReac Type Severity Reaction Status Date / Time Sfhkgco-EHW-DrH Reductase Allergy Severe pain Verified 12/21/24 16:31 Inhibitor tramadol Allergy Severe Hives Verified 12/21/24 16:31 Opioid HPI Opioid Management Most Recent Opioid Data: Last Pain Scale 8 12/21/24 17:19 12/21/24 Last MAR Pain Assessment 12/21/24 17:19 Review of Systems ROS Status of ROS 10 or more systems reviewed and unremark able except as noted in history and below [facility] Medical History (Updated 12/21/24 @ 18:57 by Homa Paez RN) Hypothyroid ?E03.9 - Hypothyroidism, unspecified (ICD-10) Diabetes type 2, controlled ?E11.9 - Type 2 diabetes mellitus without complications (ICD-10) History of cardioversion ?Z92.89 - Personal history of other medical treatment (ICD-10) Atrial fibrillation ?I48.91 - Unspecified atrial fibrillation (ICD-10) COPD (chronic obstructive pulmonary disease) ?J44.9 - Chronic obstructive pulmonary disease, unspecified (ICD-10) Back pain ?M54.9 - Dorsalgia, unspecified (ICD-10) Cardiac pacemaker ?Z95.0 - Presence of cardiac pacemaker (ICD-10) Heart block ?I45.9 - Conduction disorder, unspecified (ICD-10) Surgical History H/O cardiac radiofrequency ablation ?Z98.890 - Other specified postprocedural states (ICD-10) Social History Little interest or pleasure in doing things: not at all Feeling down, depressed, or hopeless: not at all Exam Narrative Exam Narrative: Vital signs are stable. Patient's head is atraumatic. There is no cervical spine tenderness. HEENT exam is normal to inspection. Neck is supple. Lung sounds are clear to auscultation bilaterally with good air entry. Heart has regular rate and rhythm. Abdomen soft nontender. Patient has tenderness in the right groin and laterally over the right hip. He has shortening and external rotation of the right leg. There is some superficial abrasion over the right knee but no palpable effusion. Neurovascular function is intact distally in the right leg. Bony survey of the other extremities is negative. Constitutional Vital Signs, click to edit/add: Last Vital Signs Temp 98.4 F 12/21/24 16:32 Pulse 72 12/21/24 19:10 Resp 22 H 12/21/24 19:10 BP 166/83 H 12/21/24 19:10 Pulse Ox 93 L 12/21/24 19:10 O2 Del Method Room Air 12/21/24 16:32 Course Vital Signs Vital signs: Vital Signs Temperature 98.4 F 12/21/24 16:32 Pulse Rate 69 12/21/24 16:32 Respiratory Rate 16 12/21/24 16:32 Blood Pressure 136/92 H 12/21/24 16:32 Pulse Oximetry 96 12/21/24 16:32 Oxygen Delivery Method Room Air 12/21/24 16:32 Temperature 98.4 F 12/21/24 16:32 Pulse Rate 72 12/21/24 19:10 Respiratory Rate 22 H 12/21/24 19:10 Blood Pressure 166/83 H 12/21/24 19:10 Pulse Oximetry 93 L 12/21/24 19:10 Oxygen Delivery Method Room Air 12/21/24 16:32 Medical Decision Making MDM Narrative Medical decision making narrative: Twelve-lead EKG is interpreted by me and shows atrial and ventricular pacemaker with a paced rhythm at a rate of [address] scan of the pelvis to my read shows a displaced subcapital fracture on the right side. X-rays of the right knee reveal advanced degenerative changes with no fracture. Family wants him transferred to the [facility] and I have a call out to that facility at this time. Lab Data Labs: Lab Results 12/21/24 Range/Units 17:43 WBC 8.1 (4.0-11.0) 10^3/uL RBC 3.67 L (4.70-6.10) 10^6/uL Hgb 11.8 L (14.0-18.0) g/dL Hct 35.6 L (42.0-54.0) % MCV 97.0 H (80.0-94.0) fL MCH 32.2 (25.9-34.0) pg MCHC 33.1 (29.9-35.2) g/dL RDW 13.4 (11.0-15.0) % Plt Count 178 (150-450) 10^3/uL MPV 9.2 L (9.5-13.5) fL Neut % (Auto) 71.8 (43.0-75.0) % Lymph % (Auto) 15.6 L (20.5-60.0) % [place] % (Auto) 8.4 (1.7-12.0) % Eos % (Auto) 3.1 (0.9-7.0) % Baso % (Auto) 0.2 (0.2-2.0) % Neut # (Auto) 5.8 (1.4-6.5) 10^3/uL Lymph # (Auto) 1.3 (1.2-3.8) 10^3/uL [place] # (Auto) 0.7 (0.3-0.8) 10^3/uL Eos # (Auto) 0.3 (0.0-0.7) 10^3/uL Baso # (Auto) 0.0 (0.0-0.1) 10^3/uL Abs Immat Gran (auto) 0.07 H (0.00-0.03) 10^3/uL Imm/Tot Granulo (auto) 0.9 H (0.0-0.5) % PT 11.0 (9.0-11.6) sec INR 1.04 APTT 29.2 (22.3-36.2) sec Sodium 145 (136-145) mmol/L Potassium 3.7 (3.5-5.1) mmol/L Chloride 102 (98-107) mmol/L Carbon Dioxide 30.8 (21.0-32.0) mmol/L Anion Gap 15.9 BUN 68.0 H (7.0-18.0) mg/dL Creatinine 3.27 H (0.70-1.30) mg/dL Est GFR ( Amer) 22 L (>=60 mL/min/1.73m^2) Est GFR (Non-Af Amer) 18 L (>=60 mL/min/1.73m^2) BUN/Creatinine Ratio 20.8 Glucose 101 (74-106) mg/dL Calcium 8.7 (8.5-10.1) mg/dL Total Bilirubin 0.5 (0.2-1.0) mg/dL AST 19 (15-37) U/L ALT 22 (16-63) U/L Alkaline Phosphatase 110 (46-116) U/L Troponin I High Sens 25.8 (4.0-76.1) pg/mL Total Protein 7.3 (6.4-8.2) g/dL Albumin 3.7 (3.4-5.0) g/dL Globulin 3.6 g/dL Albumin/Globulin Ratio 1.0 Discharge Plan Discharge Chief Complaint: Fall Clinical Impression: Fracture of hip, right, closed Qualifiers: Encounter type: initial encounter Qualified Code(s): S72.001A - Fracture of unspecified part of neck of right femur, initial encounter for closed fracture Patient Disposition: [facility] Time of Disposition Decision: 18:58 Discharge Location: [facility] Condition: Fair Prescriptions / Home Meds: No Action amiodarone 200 mg tablet 200 mg PO Q24H losartan 25 mg tablet 25 mg PO QDAY cholecalciferol (vitamin D3) 125 mcg (5,000 unit) capsule 5,000 unit PO DAILY allopurinol 100 mg tablet 100 mg PO DAILY amlodipine 10 mg tablet 10 mg PO DAILY Eliquis 2.5 mg tablet 2.5 mg PO BID ezetimibe 10 mg tablet 10 mg PO DAILY Trelegy Ellipta 200-62.5-25 mcg blister with device 1 inh INHALATION DAILY furosemide 80 mg tablet 80 mg PO DAILY hydralazine 100 mg tablet 100 mg PO TID isosorbide dinitrate 10 mg tablet 10 mg PO TID metoprolol succinate 100 mg tablet extended release 24 hr 100 mg PO DAILY potassium chloride 10 mEq tablet,ER particles/crystals 10 meq PO DAILY niacin 500 mg tablet 500 mg PO DAILY Print Language: Swiss Referrals: Arnie Lund DO [Primary Care Provider] - 1 week Documented by User: Alfa Juares 12/21/24 19:58 HPI HPI - General Adult General Chief complaint: Fall Stated complaint: FALL, R HIP PAIN Time Seen by Provider: 12/21/24 16:37 Related Data Home Medications ?Medication ?Instructions ?Recorded ?Confirmed allopurinol 100 mg tablet 100 mg PO DAILY 07/17/24 12/21/24 amlodipine 10 mg tablet 10 mg PO DAILY 07/17/24 12/21/24 apixaban 2.5 mg tablet (Eliquis) 2.5 mg PO BID 07/17/24 12/21/24 ezetimibe 10 mg tablet 10 mg PO DAILY 07/17/24 12/21/24 fluticasone fur. 200 mcg-umeclid 1 inh inhalation DAILY 07/17/24 12/21/24 62.5 mcg-vilant 25 mcg inhalat.powder (Trelegy Ellipta) furosemide 80 mg tablet 80 mg PO DAILY 07/17/24 12/21/24 hydralazine 100 mg tablet 100 mg PO TID 07/17/24 12/21/24 isosorbide dinitrate 10 mg tablet 10 mg PO TID 07/17/24 12/21/24 metoprolol succinate 100 mg 100 mg PO DAILY 07/17/24 12/21/24 tablet,extended release 24 hr niacin 500 mg tablet 500 mg PO DAILY 07/17/24 12/21/24 potassium chloride 10 mEq 10 meq PO DAILY 07/17/24 12/21/24 tablet,extended release(part/cryst) amiodarone 200 mg tablet 200 mg PO Q24H 12/21/24 12/21/24 cholecalciferol (vitamin D3) 125 5,000 unit PO DAILY 12/21/24 12/21/24 mcg (5,000 unit) capsule losartan 25 mg tablet 25 mg PO QDAY 12/21/24 12/21/24 Allergies Allergy/AdvReac Type Severity Reaction Status Date / Time Cwzxoit-ZWO-InU Reductase Allergy Severe pain Verified 12/21/24 16:31 Inhibitor tramadol Allergy Severe Hives Verified 12/21/24 16:31 Opioid HPI Opioid Management Most Recent Opioid Data: Last Pain Scale 8 12/21/24 17:19 12/21/24 Last MAR Pain Assessment 12/21/24 17:19 PFSH PFSH Medical History (Updated 12/21/24 @ 18:57 by Homa Paez RN) Hypothyroid ?E03.9 - Hypothyroidism, unspecified (ICD-10) Diabetes type 2, controlled ?E11.9 - Type 2 diabetes mellitus without complications (ICD-10) History of cardioversion ?Z92.89 - Personal history of other medical treatment (ICD-10) Atrial fibrillation ?I48.91 - Unspecified atrial fibrillation (ICD-10) COPD (chronic obstructive pulmonary disease) ?J44.9 - Chronic obstructive pulmonary disease, unspecified (ICD-10) Back pain ?M54.9 - Dorsalgia, unspecified (ICD-10) Cardiac pacemaker ?Z95.0 - Presence of cardiac pacemaker (ICD-10) Heart block ?I45.9 - Conduction disorder, unspecified (ICD-10) Surgical History H/O cardiac radiofrequency ablation ?Z98.890 - Other specified postprocedural states (ICD-10) Social History Little interest or pleasure in doing things: not at all Feeling down, depressed, or hopeless: not at all Exam Constitutional Vital Signs, click to edit/add: Last Vital Signs Temp 98.4 F 12/21/24 16:32 Pulse 72 12/21/24 19:10 Resp 22 H 12/21/24 19:10 BP 166/83 H 12/21/24 19:10 Pulse Ox 93 L 12/21/24 19:10 O2 Del Method Room Air 12/21/24 16:32 Course Vital Signs Vital signs: Vital Signs Temperature 98.4 F 12/21/24 16:32 Pulse Rate 69 12/21/24 16:32 Respiratory Rate 16 12/21/24 16:32 Blood Pressure 136/92 H 12/21/24 16:32 Pulse Oximetry 96 12/21/24 16:32 Oxygen Delivery Method Room Air 12/21/24 16:32 Temperature 98.4 F 12/21/24 16:32 Pulse Rate 72 12/21/24 19:10 Respiratory Rate 22 H 12/21/24 19:10 Blood Pressure 166/83 H 12/21/24 19:10 Pulse Oximetry 93 L 12/21/24 19:10 Oxygen Delivery Method Room Air 12/21/24 16:32 Medical Decision Making MDM Narrative Medical decision making narrative: Twelve-lead EKG is interpreted by me and shows atrial and ventricular pacemaker with a paced rhythm at a rate of [address] scan of the pelvis to my read shows a displaced subcapital fracture on the right side. X-rays of the right knee reveal advanced degenerative changes with no fracture. Family wants him transferred to the [facility] and I have a call out to that facility at this time. Attending physician update -I spoke with the orthopedist on-call-Dr. Mota - about this patient's acute right hip fracture. She asked that plain films be obtained and copies of those images be sent via both PACs and CD to [facility] as the patient is accepted for transfer to their facility. I also spoke with Dr. Stanton, the hospitalist on-call, who accepted the patient to his service at [facility]. Patient and family were informed of this update to the patient's disposition and he will be transferred when an ambulance is available. -DO Rj Lab Data Labs: Lab Results 12/21/24 Range/Units 17:43 WBC 8.1 (4.0-11.0) 10^3/uL RBC 3.67 L (4.70-6.10) 10^6/uL Hgb 11.8 L (14.0-18.0) g/dL Hct 35.6 L (42.0-54.0) % MCV 97.0 H (80.0-94.0) fL MCH 32.2 (25.9-34.0) pg MCHC 33.1 (29.9-35.2) g/dL RDW 13.4 (11.0-15.0) % Plt Count 178 (150-450) 10^3/uL MPV 9.2 L (9.5-13.5) fL Neut % (Auto) 71.8 (43.0-75.0) % Lymph % (Auto) 15.6 L (20.5-60.0) % [place] % (Auto) 8.4 (1.7-12.0) % Eos % (Auto) 3.1 (0.9-7.0) % Baso % (Auto) 0.2 (0.2-2.0) % Neut # (Auto) 5.8 (1.4-6.5) 10^3/uL Lymph # (Auto) 1.3 (1.2-3.8) 10^3/uL [place] # (Auto) 0.7 (0.3-0.8) 10^3/uL Eos # (Auto) 0.3 (0.0-0.7) 10^3/uL Baso # (Auto) 0.0 (0.0-0.1) 10^3/uL Abs Immat Gran (auto) 0.07 H (0.00-0.03) 10^3/uL Imm/Tot Granulo (auto) 0.9 H (0.0-0.5) % PT 11.0 (9.0-11.6) sec INR 1.04 APTT 29.2 (22.3-36.2) sec Sodium 145 (136-145) mmol/L Potassium 3.7 (3.5-5.1) mmol/L Chloride 102 (98-107) mmol/L Carbon Dioxide 30.8 (21.0-32.0) mmol/L Anion Gap 15.9 BUN 68.0 H (7.0-18.0) mg/dL Creatinine 3.27 H (0.70-1.30) mg/dL Est GFR ( Amer) 22 L (>=60 mL/min/1.73m^2) Est GFR (Non-Af Amer) 18 L (>=60 mL/min/1.73m^2) BUN/Creatinine Ratio 20.8 Glucose 101 (74-106) mg/dL Calcium 8.7 (8.5-10.1) mg/dL Total Bilirubin 0.5 (0.2-1.0) mg/dL AST 19 (15-37) U/L ALT 22 (16-63) U/L Alkaline Phosphatase 110 (46-116) U/L Troponin I High Sens 25.8 (4.0-76.1) pg/mL Total Protein 7.3 (6.4-8.2) g/dL Albumin 3.7 (3.4-5.0) g/dL Globulin 3.6 g/dL Albumin/Globulin Ratio 1.[address] hip, xr knee: My impression: Acute right hip fracture. 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 Discharge Plan Discharge Chief Complaint: Fall Clinical Impression: Fracture of hip, right, closed Qualifiers: Encounter type: initial encounter Qualified Code(s): S72.001A - Fracture of unspecified part of neck of right femur, initial encounter for closed fracture Patient Disposition: [facility] Time of Disposition Decision: 18:58 Discharge Location: [facility] Condition: Fair Prescriptions / Home Meds: No Action amiodarone 200 mg tablet 200 mg PO Q24H losartan 25 mg tablet 25 mg PO QDAY cholecalciferol (vitamin D3) 125 mcg (5,000 unit) capsule 5,000 unit PO DAILY allopurinol 100 mg tablet 100 mg PO DAILY amlodipine 10 mg tablet 10 mg PO DAILY Eliquis 2.5 mg tablet 2.5 mg PO BID ezetimibe 10 mg tablet 10 mg PO DAILY Trelegy Ellipta 200-62.5-25 mcg blister with device 1 inh INHALATION DAILY furosemide 80 mg tablet 80 mg PO DAILY hydralazine 100 mg tablet 100 mg PO TID isosorbide dinitrate 10 mg tablet 10 mg PO TID metoprolol succinate 100 mg tablet extended release 24 hr 100 mg PO DAILY potassium chloride 10 mEq tablet,ER particles/crystals 10 meq PO DAILY niacin 500 mg tablet 500 mg PO DAILY Print Language: Swiss Referrals: Arnie Lund DO [Primary Care Provider] - 1 week
[2024-12-21] MEDS: HYDROMORPHONE HCL 1 MG/ML CARTRIDGE 0.5 MG IVP (20:07)
--- NOTE | 2024-12-24 15:27 | PC.NURSE ---
This RN was unable to waste 0.5 ml of Dilaudid, that was given on 12/21/24, in the [employer] system as pt has fell off listing. Dilaudid 0.5 ml was wasted with Gretel Wu RN, in medication destroyer
== END 2024-12-21 21:33 | disposition short-term general hospital (02) ==
PROVIDERS: Emergency Provider Emergency Medicine; PCP Internal Medicine
DX: S72.001A Fracture of unspecified part of neck of right femur, initial encounter for closed fracture (principal); I48.91 Unspecified atrial fibrillation; Z79.01 Long term (current) use of anticoagulants; Z95.0 Presence of cardiac pacemaker; W10.8XXA Fall (on) (from) other stairs and steps, initial encounter
CPT/HCPCS: 36415; 51702; 72192; 73502; 73560; 80053; 84484; 85025; 85610; 85730; 93005; 96374; 96375; 96376; 99285; J1171; J2405

== ENCOUNTER 2025-02-20 07:45 | Outpatient (OUT) | payer MEDICARE, SELFPAY ==
[2025-02-20 09:27] LABS: Chol HDL Ratio 2.9; Cholesterol 135 mg/dL (<=200); HDL Cholesterol 47 mg/dL (40-60); LDL Cholesterol Calculated 74.2 mg/dL; Thyroid Stimulating Hormone 19.694 uIU/mL (0.358-3.740); Triglycerides 69 mg/dL (<=150); VLDL CHOLESTEROL 13.8 mg/dL
[2025-02-20 09:28] LABS: Prostate Specific Antigen Scrn 0.98 ng/mL (<=4.00)
[2025-02-20 09:31] LABS: Estimated Average Glucose 126 mg/dL
[2025-02-20 09:43] LABS: Free T4 0.83 ng/dL (0.76-1.46)
[2025-02-21 08:08] LABS: Triiodothyronine (T3) 63 ng/dL (71-180)
== END 2025-02-20 07:46 | disposition home or self-care (01) ==
LOC: LAB 07:45
PROVIDERS: PCP Internal Medicine; Visit Provider Internal Medicine
DX: E11.65 Type 2 diabetes mellitus with hyperglycemia (principal); E78.00 Pure hypercholesterolemia, unspecified; Z12.5 Encounter for screening for malignant neoplasm of prostate; E05.90 Thyrotoxicosis, unspecified without thyrotoxic crisis or storm
CPT/HCPCS: 36415; 80061; 83036; 84439; 84443; 84480; G0103

== ENCOUNTER 2025-04-08 09:45 | Outpatient (OUT) | payer MEDICARE, SELFPAY ==
--- NOTE | 2025-04-08 10:00 | CA_ITS ---
Patient Name: DELANO REN MR#: [id number] : 1940 Exam Date: 04/08/2025 Ordering Doctor: TRANG DEGROOT ECHOCARDIOGRAM REPORT PROCEDURE: CA ECHO DOPPLER COMPLETE INDICATIONS: Heart failure with reduced ejection fraction, pacemaker COMPARISON: None. DESCRIPTION: COMPLETE ECHOCARDIOGRAM Real-time transthoracic echocardiography with 2D, M-mode, spectral and color flow Doppler performed. QUALITY: Technical quality was good. LEFT VENTRICLE: Mild dilatation. Mild eccentric left ventricular hypertrophy. Systolic function is severely reduced. Estimated left ventricular ejection fraction is 20-25%. LV EF: Severely reduced left ventricular ejection fraction, (<25%). DIASTOLIC: ATRIAL SEPTUM: Visually appears intact. LEFT ATRIUM: Normal chamber size. RIGHT ATRIUM: Mild dilatation. RIGHT VENTRICLE: Normal chamber size. Systolic function is normal. Pacer wire present. TRICUSPID VALVE: Normal mobility and thickness. No stenosis with trivial regurgitation. No evidence of pulmonary hypertension. RVSP 22 mmHg MITRAL VALVE: Normal mobility and thickness. No evidence of mitral valve stenosis. There is no mitral annular calcification. Mild mitral regurgitation. AORTIC VALVE: Normal trileaflet appearance. Normal leaflet mobility. No evidence of aortic valve stenosis. Multifocal calcifications. No aortic regurgitation. AORTIC ROOT: Normal diameter and appearance, measuring 3.6 cm. Ascending aorta is normal in size, measuring 3.2 cm. PULMONIC VALVE: Normal thickness and mobility. No stenosis. No regurgitation. PERICARDIUM: No evidence of pericardial effusion. IVC: Collapses with inspiration. IVC is normal in size. PLEURA: CONCLUSION: 1. Mild eccentric left ventricular hypertrophy with severely reduced systolic function. There is global hypokinesis. Estimated ejection fraction is 20-25%. 2. Normal right ventricular size and systolic function. 3. Mild mitral regurgitation. 4. Normal right-sided pressures. Adult Echocardiography Procedure Report Left Ventricle LVEDD (3.7 - 5.6 cm): 6.04 cm LVESD (2.2 - 4.0 cm): 5.08 cm LVIVS thickness (0.6 - 1.2 cm): 1.03 cm LVPW thickness (0.5 - 1.0 cm): 1.18 cm e': 0.03 m/s LVOT Max Gradient: 1.35 mm[Hg] LVOT Area (cm2): 0.58 m/s Peak Velocity (LVOT): 0.58 m/s Mean Velocity (LVOT): 0.41 m/s LVOT Diameter 2.38 cm Left Ventricular Ejection Fraction: 20-25 % Left Atrium LA Volume Index (2D A2C): 35.66 ml/m2 Left Atrium Systolic Dimension: 3.83 cm Mitral Valve Right Ventricle Aorta AO Root Diam: 3.58 cm Ascending Ao Diam: 3.19 cm Aortic Valve AoV Area (Peak Ezequiel): 1.99 cm2, 1.99 cm2 AoV Area (VTI): 1.92 cm2, 1.92 cm2 Peak Velocity(Antegrade Flow): 1.30 m/s Peak Gradient(Antegrade Flow): 6.75 mm[Hg] Mean Velocity(Antegrade Flow): 0.85 m/s Mean Gradient(Antegrade Flow): 3.41 mm[Hg] Velocity Time Integral: 30.09 cm Tricuspid Valve Peak Velocity (Regurgitant Flow): 1.81 m/s, 2.21 m/s Pulmonic Valve Peak Gradient: 1.39 mm[Hg], 1.56 mm[Hg] Right Atrium Right Atrium Systolic Pressure: 82.51 ml, 82.51 ml Dictated by: Adan Ortiz M.D. on 04/08/2025 at 21:45 Approved by: Adan Ortiz M.D. on 04/08/2025 at 21:51
== END 2025-04-08 09:46 | disposition home or self-care (01) ==
LOC: CARD 09:45
PROVIDERS: PCP Internal Medicine; Visit Provider Internal Medicine Cardiovascular Disease
DX: I50.41 Acute combined systolic (congestive) and diastolic (congestive) heart failure (principal); I36.1 Nonrheumatic tricuspid (valve) insufficiency
CPT/HCPCS: 93306; 93356

== ENCOUNTER 2025-04-08 10:44 | Outpatient (OUT) | payer MEDICARE, SELFPAY ==
--- OUTSIDE RECORDS SUMMARY | 2025-03-25 10:00 | XMS_ITS | Encounter Summary ---
Author Organization [facility] Address [address] [place] [address] Care Team Providers Care Developer Designer Name Role Phone Arnie Lund DO Primary Care Provider [phone] Encounter Details Date Type Department Care Team (Latest Contact Info) Description 03/25/2025 10:00 AM EDT Ancillary Procedure [facility] at [place] [address] [place] [address] Encounter for implantable defibrillator reprogramming or check Social History Tobacco Use Types Packs/Day Years Used Date Smoking Tobacco: Former Cigarettes Q uit: 1982 Smokeless Tobacco: Never Alcohol Use Standard Drinks/Week Comments Yes 0 (1 standard drink = 0.6 oz pur e alcohol) OCCASIONAL PHQ-2 Answer Date Recorded Patient Health Questionnaire-2 Score 0 04/25/2023 [place] Safety & Environment Answer Date Rec orded Fear of Current or Ex-Partner Not on file Emotionally Abused Not on file 12/07/2023 Physically Abused Not on file 12/07/2023 Sexually Abused Not on file 12/07/2023 Physically or Sexually Abused Not on file Sex and Gender Information Value Date Recorded Sex Assigned at Male 06/12/2023 6:32 AM EDT Legal Sex Male 11:44 PM EDT Gender Identity Male 06/12/2023 6:32 AM EDT Sexual Orientation Heterosexual or Straight 05/17 6:32 AM EDT documented as of this encounter Plan of Treatment Upcoming Encounters Date Type Department Care Team (Late st Contact Info) Description 04/14/2025 2:45 PM EDT Office Visit [facility] Heart at [facility] [address] [place] [address] Adan Ortiz MD [address] [facility] [address] [facility] [place] [id number] documented as of this encounter Procedures Procedure Name Priority Date/Time Associated Diagnosis Comments CARDIAC DEVICE CHECK - IN CLINIC - ICD BIVENTRICULAR CHAMBER W/ PROG Routine 03/26/2025 11:58 AM EDT Encounter for implantable defibrillator reprogramming or check documented in this encounter Results * CARDIAC DEVICE CHECK - IN CLINIC - ICD BIVENTRICULAR CHAMBER W/ PROG (03/26/2025 11:58 AM EDT) Anatomical Region Laterality Modality Other Narrative 03/27/2025 1:08 PM EDT By using the attestations below, the signing clinician agrees that I have read and verify that the documentation has been personally reviewed by me and ensure that the documentation accurately reflects the encounter. Routine EP device follow up as per schedule. Please see attached note us Mariusz Montoya MD CV IMPLANTABLE CARDIAC DEVICE MD OCEDURES Final Result documented in this encounter Visit Diagnoses Diagnosis Encounter for implantable defibrillator reprogramming or check Fitting and adjustment of automatic implantable cardiac defibrillator documented in this encounter Care Teams Developer Designer Relationship Specialty Start Date End Date Arnie Lund DO [address] [facility] [place] [id number] PCP - General 06/07/22 documented as of this encounter
--- OUTSIDE RECORDS SUMMARY | 2025-03-25 20:30 | XMS_ITS | Encounter Summary ---
Author Organization [facility] Address [address] [place] [address] Care Team Providers Care Stock Puller Name Role Phone Arnie Lund DO Primary Care Provider [phone] Encounter Details Date Type Department Care Team (Latest Contact Info) Description 03/25/2025 8:30 PM EDT Ancillary Procedure [facility] [address] [place] [id number] Pre-operative cardiovascular examination, ICD in place Social History Tobacco Use Types Packs/Day Years Used Date Smoking Tobacco: Former Cigarettes Q uit: 1982 Smokeless Tobacco: Never Alcohol Use Standard Drinks/Week Comments Yes 0 (1 standard drink = 0.6 oz pur e alcohol) OCCASIONAL PHQ-2 Answer Date Recorded Patient Health Questionnaire-2 Score 0 04/25/2023 [place] Safety & Environment Answer Date Rec orded [...] Description 04/14/2025 2:45 PM EDT Office Visit [facility] [address] [place] [address] Adan Ortiz MD [address] [facility] [address] [facility] [place] [address] documented as of this encounter Procedures Procedure Name Priority Date/Time Associated Diagnosis Comments CARDIAC DEVICE CHECK CHECK - REMOTE Routine 04/07/2025 1:09 PM EDT Pre-operative cardiovascular examination, ICD in place documented in this encounter Results * CARDIAC DEVICE CHECK - REMOTE - ICD (04/07/2025 1:09 PM EDT) us Mariusz Montoya MD CV IMPLANTABLE CARDIAC DEVICE OR OCEDURES Final Result CPACS documented in this encounter Visit Diagnoses Diagnosis Pre-operative cardiovascular examination, ICD in place Pre-operative cardiovascular examination documented in this encounter Care Teams Stock Puller Relationship Specialty Start Date End Date Arnie Lund DO [address] [place] [address] [place] [address] PCP - General 06/07/22 documented as of this encounter
--- OUTSIDE RECORDS SUMMARY | 2025-03-26 12:00 | XMS_ITS | Encounter Summary ---
Author Organization [facility] Address [address] [place] [address] Care Team Providers Care Community Health Specialist Name Role Phone Arnie Lund DO Primary Care Provider [phone] Reason for Visit * Rehabilitation - Outpatient (Routine) - Authorized Specialty Diagnoses / Procedures Referred By Abby mortensen Referred To Contact Physical Therapy Diagnoses Right Hip Arthroplasty / Bone graft proximal femur, dos 12/23/24 / Left trochanteric Bursitis Procedures [place] PHYSICAL THERAPY EVALUATION LOW COMPLEX 20 MINS [place] OFFICE/OUTPATIENT NEW HIGH MDM 60 MINUTES Robert Soria MD [address] [place] [address] Phone: tel: fax: Kenny Aldana, PT [address] [facility] [address] [place] [address] Phone: tel: fax: Referral ID Status Reason Start Date Expiration Date V isits Requested Visits Authorized [id number] Authorized 03/19/2025 10/15/2025 20 30 Encounter Details Date Type Department Care Team (Late st Contact Info) Description 03/26/2025 12:00 PM EDT Treatment [facility] [address] [facility] [address] [place] [id number] Sherif Almodovar PTA Greater trochanteric bursitis of left hip (Primary Dx); History of total hip arthroplasty, right; Left hip pain Social History Tobacco Use Types Packs/Day Years Used Date Smoking Tobacco: Former Cigarettes Smokeless Tobacco: Never Alcohol Use Standard Drinks/Week Comments Yes 0 (1 standard drink = 0.6 oz pur e alcohol) caffeine: none AUDIT-C Answer Date Recorded Frequency of Alcohol Consumption Not on file 07/08/2024 Q2: How many drinks containi ng alcohol do you have on a typical day when you are drinking? 1 or 2 07/08/2024 Q3: How often do you have si x or more drinks on one occasion? Never 07/08/2024 Sex and Gender Information Value Date Recorded Sex Assigned at Not on file Legal Sex Male 7:17 PM EDT Gender Identity Male 08/18/2023 4:57 PM EDT Sexual Orientation Not on file documented as of this encounter Progress Notes * Sherif Almodovar, WARP HAULER - 03/26/2025 12:00 PM EDT Images from the original note were not included. Physical Therapy Treatment Visit Patient Name: Nas Alamo Today's Date: 03/26/2025 Encounter Diagnoses Name Primary? Greater trochanteric bursitis of left hip Yes History of total hip arthroplasty, right Left hip pain Visit number: 4 Timed Code Treatment: 42 minutes Total Treatment Time: 50 minutes Time In: 12:00 PM Time Out: 12:50 PM History: Pt. Presents to PT PO right HERRERA with bone graft proximal with DOS 12/23/24. Pt. Had 6+ weeks of home health PT. Presents to OP PT with SPC. Pt. Is c/c is left greater trochanteric bursitis which started about a 4-6 weeks ago. Pt. Is having difficulty walking due to bilateral hip pain. Did have injection to left hip 4 weeks ago but only short relief of pain. Precautions: standard HERRERA precaution Subjective Pt reports walking better but still using cane, states he ambulates small distances without cane in the morning. Pain: denies pain Objective: PT Evaluation (03/19/25) Right/hip ROM: grossly WFL in all planes Flexibility: moderate piriformis and hamstring muscle tightness on left Palpation: TTP left greater trochanter with increased muscle tightness Strength: right/left lateral hip strength 3+/5, extension 4-/5 Gait: antalgic gait pattern with [place] gait pattern Treatment: Manual Therapy: (prn) Delivered PROM with gentle end range stretching in all planes to bilateral hip stretching to improve mobility Therapeutic Exercise: (42 minutes supervised ) Instructed pt through bilateral hip ther ex to improve muscular control and strength to improve pelvic control, gait per exercise grid to improve bilateral Strength, Endurance, Flexibility, ROM, HEP, Neural Mobilization, Power, and Core Stability Nustep ( 8 minutes ) set to hills level 2 to improve cardiovascular Therapeutic Activity: Exercises to improve dynamic activities, functional tasks, functional mobility to return to prior activity level Neuromuscular re-education: Balance Training, Muscle Facilitation, Dynamic Stability, Core Stabilization, and Blood Flow Restriction Training (BFRT) Modalities: Heat, Ice, Electrical Stimulation, Ultrasound, Cervical Mechanical Traction, Lumbar Mechanical Traction, Iontophoresis, and Fluidotherapy PRN DN: left greater trochanter protocol; 3x needles, 0 minute rest (Not today) Assessment: Pt has participated in 4 PT session with start of POC on 03/19/25 for bilateral hip pain, right THA3 months ago and left hip bursitis. Reports L hip has been good, denies pain. Asks to focus on right hip strength and improve gait. Progressed reps and introduced lateral stepping and step overs. Pt tolerated session well with frequent verbal cuing for exercise correction for muscle facilitation. Pt will benefit from skilled PT services focusing on bilateral hip strength, gait and mobility Outcome Measure: in chart Short Term Goal: To be met in 2 weeks Goal 1: Pt to be instructed in home exercise program. Senior Mobile Application Developer Goals: To be met in 10 weeks Goal 1: Pt to report independence and compliance with home program. Goal 2: Pt. Will report of 0/10 right hip pain while walking/standing for long periods of time. Goal 3: Pt. Will report of 0/10 left hip pain while walking/standing/sitting for long periods of time. Goal 4: Pt. Will demonstrate normal left hip muscle flexibility to help decrease pain and improve his functional mobility with daily tasks. Goal 5: Pt. Will demonstrate 5/5 left hip strength grossly in all planes to allow him to perform daily tasks. Goal 6: Pt. Will demonstrate normalized gait pattern and walk without cane to help improve his quality of life. Pt will benefit from skilled PT for 1-3x/week from 03/19/25 to 05/28/25 to address the above impairments. I hereby deem this POC medically necessary. Please sign below. Date: Cosigned by Kenny Aldana, PT at 03/27/2025 2:02 PM EDT documented in this encounter Plan of Treatment Upcoming Encounters Date Type Department Care Team (Late st Contact Info) Description 04/09/2025 1:00 PM EDT Treatment [facility] [address] [facility] [address] [place] [address] Roxanne áSnchez, WARP HAULER 04/11/2025 11:30 AM EDT Treatment [facility] [address] [facility] [address] [place] [address] Ronal Andrews, WARP HAULER 04/14/2025 11:30 AM EDT Treatment [facility] [address] [facility] [address] [place] [address] Ronal Andrews, WARP HAULER 04/15/2025 8:30 AM EDT Treatment [facility] [address] [facility] [address] [place] [address] Kenny Aldana, PT [address] [facility] [address] [place] [address] 04/17/2025 11:00 AM EDT Treatment [facility] [address] [facility] [address] [place] [address] Ronal Andrews, WARP HAULER 05/26/2025 10:15 AM EDT Procedure [facility] [address] [place] [address] Kole Batista, DPM [address] [place], [place] [phone] documented as of this encounter Visit Diagnoses Diagnosis Greater trochanteric bursitis of left hip- Primary History of total hip arthroplasty, right Left hip pain Pain in joint, pelvic region and thigh documented in this encounter Care Teams Community Health Specialist Relationship Specialty Start Date End Date Arnie Lund DO [address] [place] [address] PCP - General Internal Medicine 02/18/25 documented as of this encounter
--- OUTSIDE RECORDS SUMMARY | 2025-03-28 11:30 | XMS_ITS | Encounter Summary ---
Author Organization [facility] Address [address] [place] [address] Care Team Providers Care Chief Controller Name Role Phone Arnie Lund DO Primary Care Provider [phone] Reason for Visit * Rehabilitation - Outpatient (Routine) - Authorized Specialty Diagnoses / Procedures Referred By Abby mortensen Referred To Contact Physical Therapy Diagnoses Right Hip Arthroplasty / Bone graft proximal femur, dos 12/23/24 / Left trochanteric Bursitis Procedures [place] PHYSICAL THERAPY EVALUATION LOW COMPLEX 20 MINS [place] OFFICE/OUTPATIENT NEW HIGH MDM 60 MINUTES Robert Soria MD [address] [place] [address] Phone: tel: fax: Kenny Aldana, PT [address] [facility] [address] [place] [address] Phone: tel: fax: Referral ID Status Reason Start Date Expiration Date V isits Requested Visits Authorized [id number] Authorized 03/19/2025 10/15/2025 20 30 Encounter Details Date Type Department Care Team (Late st Contact Info) Description 03/28/2025 11:30 AM EDT Treatment [facility] [address] [facility] [address] [place] [id number] Ronal Andrews PTA Greater trochanteric bursitis of left hip [...] as of this encounter Progress Notes * Ronal Andrews, BEAM WARPER - 03/28/2025 11:30 AM EDT Images from the original note were not included. Physical Therapy Treatment Visit Patient Name: Nas Alamo Today's Date: 03/28/2025 Encounter Diagnoses Name Primary? Greater trochanteric bursitis of left hip Yes History of total hip arthroplasty, right Left hip pain Visit number: 5 Timed Code Treatment: 53 minutes Total Treatment Time: 61 minutes Time In: 1125 Time Out: 1226 History: Pt. Presents to PT PO right [...] small distances without cane in the morning. Pt reported a fall this AM. Pt was bent over and then asael up and fell backwards. Brother and chair helped get him up. Pain: denies pain Objective: PT Evaluation (03/19/25) [...] hip stretching to improve mobility Therapeutic Exercise: (53 minutes supervised ) Instructed pt through bilateral [...] (Not today) Assessment: Pt has participated in 5 PT session with start of POC on 03/19/25 for bilateral hip pain, right THA3 months ago and left hip bursitis. Reports L hip has been good, denies pain. Asks to focus on right hip strength and improve gait. Max cues needed with Sit to stand to improve ease and reduce retro lean. Pt was unable to correct. Fair tolerance this session, due to increased general physical fatigue, possibly from getting up from fall. Held a few exercises this date due to fatigue, Pt was slow moving. Pt will benefit from skilled PT services focusing on bilateral hip strength, gait and mobility Outcome Measure: in chart Short Term Goal: To be met in 2 weeks Goal 1: Pt to be instructed in home exercise program. Metal Pourer Goals: To be met in 10 weeks [...] Date: Cosigned by Kenny Aldana, PT at 03/31/2025 7:16 AM EDT documented in this encounter Plan of Treatment Upcoming Encounters Date Type Department Care Team (Late st Contact Info) Description 04/09/2025 1:00 PM EDT Treatment [facility] [address] [facility] [address] [place] [address] Roxanne Sánchez, BEAM WARPER 04/11/2025 11:30 AM EDT Treatment [facility] [address] [facility] [address] [place] [address] Ronal Andrews, BEAM WARPER 04/14/2025 11:30 AM EDT Treatment [facility] [address] [facility] [address] [place] [address] Ronal Andrews, BEAM WARPER 04/15/2025 8:30 AM EDT Treatment [facility] [address] [facility] [address] [place] [address] Kenny Aldana, PT [address] [facility] [address] [place] [address] 04/17/2025 11:00 AM EDT Treatment [facility] [address] [facility] [address] [place] [address] Ronal Andrews, BEAM WARPER 05/26/2025 10:15 AM EDT Procedure [facility] [place] [phone] Kole Batista, DPCanelo [address] [place] [address] documented as of this encounter Visit Diagnoses Diagnosis Greater trochanteric bursitis of left hip- Primary History of total hip arthroplasty, right Left hip pain Pain in joint, pelvic region and thigh documented in this encounter Care Teams Chief Controller Relationship Specialty Start Date End Date Arnie Lund DO [address] [place] [address] PCP - General Internal Medicine 02/18/25 documented as of this encounter
--- OUTSIDE RECORDS SUMMARY | 2025-03-31 13:00 | XMS_ITS | Encounter Summary ---
Author Organization [facility] Address [address] [place] [address] Care Team Providers Care Art Coordinator Name Role Phone Arnie Lund DO Primary Care Provider [phone] Reason for Visit * Rehabilitation - Outpatient (Routine) - Authorized Specialty Diagnoses / Procedures Referred By Abby mortensen Referred To Contact Physical Therapy Diagnoses Right Hip Arthroplasty / Bone graft proximal femur, dos 12/23/24 / Left trochanteric Bursitis Procedures [place] PHYSICAL THERAPY EVALUATION LOW COMPLEX 20 MINS [place] OFFICE/OUTPATIENT NEW HIGH MDM 60 MINUTES Robert Soria MD [address] [place] [address] Phone: tel: fax: Kenny Aldana, PT [address] [facility] [address] [place] [address] Phone: tel: fax: Referral ID Status Reason Start Date Expiration Date V isits Requested Visits Authorized [id number] Authorized 03/19/2025 10/15/2025 20 30 Encounter Details Date Type Department Care Team (Late st Contact Info) Description 03/31/2025 1:00 PM EDT Treatment [facility] [address] [facility] [address] [place] [phone] Kenny Aldana, PT [address] [facility] [address] [place] [address] Greater trochanteric bursitis of left hip (Primary [...] as of this encounter Progress Notes * Kenny Aladna, PT - 03/31/2025 1:00 PM EDT Images from the original note were not included. Physical Therapy Treatment Visit Patient Name: Nas Alamo Today's Date: 03/31/2025 Encounter Diagnoses Name Primary? Greater trochanteric bursitis of left hip Yes History of total hip arthroplasty, right Left hip pain Visit number: 6 Timed Code Treatment: 53 minutes Total Treatment Time: 63 minutes Time In: 1300 Time Out: 1403 History: Pt. Presents to PT PO right [...] standard HERRERA precaution Subjective Pt reports walking with longer strides. Right hip weakness still affecting his quality of life. Pain: denies pain Objective: PT Evaluation (03/19/25) [...] hip stretching to improve mobility Therapeutic Exercise: (43 minutes supervised ) Instructed pt through bilateral hip ther ex to improve muscular control and strength to improve pelvic control, gait per exercise grid to improve bilateral Strength, Endurance, Flexibility, ROM, HEP, Neural Mobilization, Power, and Core Stability Nustep ( 8 minutes ) set to hills level 2 to improve cardiovascular Therapeutic Activity: (10 minutes) Exercises to improve dynamic activities, functional tasks, [...] (Not today) Assessment: Pt has participated in 6 PT session with start of POC on 03/19/25 for bilateral hip pain, right THA3 months ago and left hip bursitis. Reports L hip has been good, denies pain. Asks to focus on right hip strength and improve gait. Pleased with his progress. Max cues needed with Sit to stand [...] to be instructed in home exercise program. Property Damage Claims Adjustor Goals: To be met in 10 weeks [...] POC medically necessary. Please sign below. Date: documented in this encounter Plan of Treatment Upcoming Encounters Date Type Department Care Team (Late st Contact Info) Description 04/09/2025 1:00 PM EDT Treatment [facility] [address] [facility] [address] [place] [address] Roxanne Sánchez, CLIENT CUSTOMER MANAGER 04/11/2025 11:30 AM EDT Treatment [facility] [address] [facility] [address] [place] [address] Ronal Andrews, CLIENT CUSTOMER MANAGER 04/14/2025 11:30 AM EDT Treatment [facility] [address] [facility] [address] [place] [address] Ronal Andrews, CLIENT CUSTOMER MANAGER 04/15/2025 8:30 AM EDT Treatment [facility] [address] [facility] [address] [place] [address] Kenny Aldana, PT [address] [facility] [address] [place] [address] 04/17/2025 11:00 AM EDT Treatment [facility] [address] [facility] [address] [place] [address] Ronal Andrews, CLIENT CUSTOMER MANAGER 05/26/2025 10:15 AM EDT Procedure [facility] [address] [place] [address] Kole Batista, DPM [address] [place], [place] [phone] documented as of this encounter Visit Diagnoses Diagnosis Greater trochanteric bursitis of left hip- Primary History of total hip arthroplasty, right Left hip pain Pain in joint, pelvic region and thigh documented in this encounter Care Teams Art Coordinator Relationship Specialty Start Date End Date Arnie Lund DO [address] [place] [address] PCP - General Internal Medicine 02/18/25 documented as of this encounter
--- OUTSIDE RECORDS SUMMARY | 2025-04-02 12:00 | XMS_ITS | Encounter Summary ---
Author Organization [facility] Address [address] [place] [address] Care Team Providers Care Cloth Mercerizing Supervisor Name Role Phone Arnie Lund DO Primary Care Provider [phone] Reason for Visit * Rehabilitation - Outpatient (Routine) - Authorized Specialty Diagnoses / Procedures Referred By Abby mortensen Referred To Contact Physical Therapy Diagnoses Right Hip Arthroplasty / Bone graft proximal femur, dos 12/23/24 / Left trochanteric Bursitis Procedures [place] PHYSICAL THERAPY EVALUATION LOW COMPLEX 20 MINS [place] OFFICE/OUTPATIENT NEW HIGH MDM 60 MINUTES Robert Soria MD [address] [place] [address] Phone: tel: fax: Kenny Aldana, PT [address] [facility] [address] [place] [address] Phone: tel: fax: Referral ID Status Reason Start Date Expiration Date V isits Requested Visits Authorized [id number] Authorized 03/19/2025 10/15/2025 20 30 Encounter Details Date Type Department Care Team (Late st Contact Info) Description 04/02/2025 12:00 PM EDT Treatment [facility] [address] [facility] [address] [place] [phone] Ronal Andrews PTA Greater trochanteric bursitis of [...] this encounter Progress Notes * Ronal Andrews, BREAKER OPERATOR - 04/02/2025 12:00 PM EDT Images from the original note were not included. Physical Therapy Treatment Visit Patient Name: Nas Alamo Today's Date: 04/02/2025 Encounter Diagnoses Name Primary? Greater trochanteric bursitis of left hip Yes History of total hip arthroplasty, right Left hip pain Visit number: 6 Timed Code Treatment: 53 minutes Total Treatment Time: 53 minutes Time In: 1155 Time Out: 1253 History: Pt. Presents to PT PO right [...] Subjective Pt reports walking with longer strides. Nothing hurts like it use to . Right hip weakness still affecting his quality [...] hip stretching to improve mobility Therapeutic Exercise: (38 minutes supervised ) Instructed pt through bilateral hip ther ex to improve muscular control and strength to improve pelvic control, gait per exercise grid to improve bilateral Strength, Endurance, Flexibility, ROM, HEP, Neural Mobilization, Power, and Core Stability Therapeutic Activity: (15 minutes) Exercises to improve dynamic activities, functional [...] (Not today) Assessment: Pt has participated in 7 PT session with start of POC on 03/19/25 for bilateral hip pain, right THA3 months ago and left hip bursitis. Reports L hip has been good, denies pain. Asks to focus on right hip strength and improve gait. Slowly progressing standing exercises to improve strength and tolerance. Used CGA with all. Max cues needed with Sit to stand to improve ease and reduce retro lean. Pt was unable to correct. Knee weakness/pain is barrier to improved sit to stand technique. Pt will benefit from skilled PT services focusing on bilateral hip strength, gait and mobility Outcome Measure: in chart Short Term Goal: To be met in 2 weeks Goal 1: Pt to be instructed in home exercise program. Longterm Goals: To be met in 10 weeks [...] Date: Cosigned by Kenny Aldana, PT at 04/02/2025 1:22 PM EDT documented in this encounter Plan of Treatment Upcoming Encounters Date Type Department Care Team (Late st Contact Info) Description 04/09/2025 1:00 PM EDT Treatment [facility] [address] [facility] [address] [place] [address] Roxanne Sánchez, BREAKER OPERATOR 04/11/2025 11:30 AM EDT Treatment [facility] [address] [facility] [address] [place] [address] Ronal Andrews, BREAKER OPERATOR 04/14/2025 11:30 AM EDT Treatment [facility] [address] [facility] [address] [place] [address] Ronal Andrews, BREAKER OPERATOR 04/15/2025 8:30 AM EDT Treatment [facility] [address] [facility] [address] [place] [address] Kenny Aldana, PT [address] [facility] [address] [place] [address] 04/17/2025 11:00 AM EDT Treatment [facility] [address] [facility] [address] [place] [address] Ronal Andrews, BREAKER OPERATOR 05/26/2025 10:15 AM EDT Procedure [facility] [address] [place] [address] Kole Batista, DPM [address] [place], [place] [phone] documented as of this encounter Visit Diagnoses Diagnosis Greater trochanteric bursitis of left hip- Primary History of total hip arthroplasty, right Left hip pain Pain in joint, pelvic region and thigh documented in this encounter Care Teams Cloth Mercerizing Supervisor Relationship Specialty Start Date End Date Arnie Lund DO [address] [place] [address] PCP - General Internal Medicine 02/18/25 documented as of this encounter
--- OUTSIDE RECORDS SUMMARY | 2025-04-04 11:30 | XMS_ITS | Encounter Summary ---
Author Organization [facility] Address [address] [place] [address] Care Team Providers Care Organ Fixer Name Role Phone Arnie Lund DO Primary Care Provider [phone] Reason for Visit * Rehabilitation - Outpatient (Routine) - Authorized Specialty Diagnoses / Procedures Referred By Abby mortensen Referred To Contact Physical Therapy Diagnoses Right Hip Arthroplasty / Bone graft proximal femur, dos 12/23/24 / Left trochanteric Bursitis Procedures MS PHYSICAL THERAPY EVALUATION LOW COMPLEX 20 MINS MS OFFICE/OUTPATIENT NEW HIGH MDM 60 MINUTES Robert Soria MD [address] [place] [address] Phone: tel: fax: Kenny Aldana, PT [address] [place] [address] Phone: tel: fax: Referral ID Status Reason Start Date Expiration Date V isits Requested Visits Authorized [id number] Authorized 03/19/2025 10/15/2025 20 30 Encounter Details Date Type Department Care Team (Late st Contact Info) Description 04/04/2025 11:30 AM EDT Treatment [facility] [address] [place] [address] Ronal Andrews PTA Greater trochanteric bursitis of [...] this encounter Progress Notes * Ronal Andrews, RADIO ELECTRONICS OFFICER - 04/04/2025 11:30 AM EDT Images from the original note were not included. Physical Therapy Treatment Visit Patient Name: Nas Alamo Today's Date: 04/04/2025 Encounter Diagnoses Name Primary? Greater trochanteric bursitis of left hip Yes History of total hip arthroplasty, right Left hip pain Visit number: 8 Timed Code Treatment: 53 minutes Total Treatment Time: 53 minutes Time In: 1130 Time Out: 1225 History: Pt. Presents to PT PO right [...] (Not today) Assessment: Pt has participated in 8 PT session with start of POC on [...] to be instructed in home exercise program. [facility] Goals: To be met in 10 weeks [...] Date: Cosigned by Kenny Aldana, PT at 04/07/2025 7:59 AM EDT documented in this encounter Plan of Treatment Upcoming Encounters Date Type Department Care Team (Late st Contact Info) Description 04/09/2025 1:00 PM EDT Treatment [facility] [address] [place] [address] Roxanne Sánchez, RADIO ELECTRONICS OFFICER 04/11/2025 11:30 AM EDT Treatment [facility] [address] [place] [address] Ronal Andrews, RADIO ELECTRONICS OFFICER 04/14/2025 11:30 AM EDT Treatment [facility] [address] [place] [address] Ronal Andrews, RADIO ELECTRONICS OFFICER 04/15/2025 8:30 AM EDT Treatment [facility] [address] [place] [address] Kenny Aldana, PT [address] [place] [address] 04/17/2025 11:00 AM EDT Treatment [facility] [address] [place] [address] Ronal Andrews, RADIO ELECTRONICS OFFICER 05/26/2025 10:15 AM EDT Procedure [facility] [address] [place] [address] Kole Batista, DPM [address] [place], [place] [phone] documented as of this encounter Visit Diagnoses Diagnosis Greater trochanteric bursitis of left hip- Primary History of total hip arthroplasty, right Left hip pain Pain in joint, pelvic region and thigh documented in this encounter Care Teams Organ Fixer Relationship Specialty Start Date End Date Arnie Lund DO [address] [place] [address] PCP - General Internal Medicine 02/18/25 documented as of this encounter
--- OUTSIDE RECORDS SUMMARY | 2025-04-07 14:30 | XMS_ITS | Encounter Summary ---
Author Organization [facility] Address [address] [place] [address] Care Team Providers Care Dental Technologist Name Role Phone Arnie Lund DO Primary Care Provider [phone] Reason for Visit * Rehabilitation - Outpatient (Routine) - Authorized Specialty Diagnoses / Procedures Referred By Abby mortensen Referred To Contact Physical Therapy Diagnoses Right Hip Arthroplasty / Bone graft proximal femur, dos 12/23/24 / Left trochanteric Bursitis Procedures RI PHYSICAL THERAPY EVALUATION LOW COMPLEX 20 MINS RI OFFICE/OUTPATIENT NEW HIGH MDM 60 MINUTES Robert Soria MD [address] [place] [address] Phone: tel: fax: Kenny Aldana, PT [address] [place] [address] Phone: tel: fax: Referral ID Status Reason Start Date Expiration Date V isits Requested Visits Authorized [id number] Authorized 03/19/2025 10/15/2025 20 30 Encounter Details Date Type Department Care Team (Late st Contact Info) Description 04/07/2025 2:30 PM EDT Treatment [facility] [address] [place] [phone] Roxanne Sánchez, GLASS DRILLER Greater trochanteric bursitis of left hip (Primary [...] as of this encounter Progress Notes * Roxanne Princess, GLASS DRILLER - 04/07/2025 2:30 PM EDT Images from the original note were not included. Physical Therapy Treatment Visit Patient Name: Nas Alamo Today's Date: 04/07/2025 Encounter Diagnoses Name Primary? Greater trochanteric bursitis of left hip Yes History of total hip arthroplasty, right Left hip pain Visit number: 9 Timed Code Treatment: 45 minutes Total Treatment Time: 53 minutes Time In: 2:25 PM Time Out: 3:18 PM History: Pt. Presents to PT PO [...] longer strides. Nothing hurts like it use to, I just have to have my cane Right hip weakness still affecting his quality [...] hip stretching to improve mobility Therapeutic Exercise: (30 minutes supervised ) Instructed pt through bilateral hip ther ex to improve muscular control and strength to improve pelvic control, gait per exercise grid ;bilateral Strength, Endurance, Flexibility, ROM, HEP, Neural Mobilization, Power, and Core Stability ( 8 minutes ) unsupervised Therapeutic Activity: (15 minutes supervised ) Exercises to improve dynamic activities, functional tasks, [...] (Not today) Assessment: Pt has participated in 9 PT session with start of POC on 03/19/25 for bilateral hip pain, right THA3 months ago and left hip bursitis. Reports L hip has been good, denies pain. Slowly progressing standing exercises to improve strength and tolerance. Used CGA with all. Max cues needed with sit to stand to improve ease and reduce retro lean. Pt was unable to correct. Knee weakness/pain is barrier to improved sit to stand technique. Pt will benefit from skilled PT services focusing on bilateral hip strength, gait and mobility Outcome Measure: in chart Short Term Goal: To be met in 2 weeks Goal 1: Pt to be instructed in home exercise program. Photographic Technician Goals: To be met in 10 weeks [...] Cosigned by Kenny Aldana, PT at 04/07/2025 3:30 PM EDT documented in this encounter Plan of Treatment Upcoming Encounters Date Type Department Care Team (Late st Contact Info) Description 04/09/2025 1:00 PM EDT Treatment [facility] [address] [facility] [address] [place] [address] Roxanne Sánchez, GLASS DRILLER 04/11/2025 11:30 AM EDT Treatment [facility] [address] [facility] [address] [place] [address] Ronal Andrews, GLASS DRILLER 04/14/2025 11:30 AM EDT Treatment [facility] [address] [facility] [address] [place] [address] Ronal Andrews, GLASS DRILLER 04/15/2025 8:30 AM EDT Treatment [facility] [address] [facility] [address] [place] [address] Kenny Aldana, PT [address] [facility] [address] [place] [address] 04/17/2025 11:00 AM EDT Treatment [facility] [address] [facility] [address] [place] [address] Ronal Andrews, GLASS DRILLER 05/26/2025 10:15 AM EDT Procedure Visit [facility] [address] [place] [address] Kole Batista, DPM [address] [place], [place] [phone] documented as of this encounter Visit Diagnoses Diagnosis Greater trochanteric bursitis of left hip- Primary History of total hip arthroplasty, right Left hip pain Pain in joint, pelvic region and thigh documented in this encounter Care Teams Dental Technologist Relationship Specialty Start Date End Date Arnie Lund DO [address] [place] [address] PCP - General Internal Medicine 02/18/25 documented as of this encounter
--- OUTSIDE RECORDS SUMMARY | 2025-04-08 10:47 | XMS_ITS | Encounter Summary ---
Author Organization [facility] Address [address] [place] [address] Care Team Providers Care Radar Scientist Name Role Phone KevonArnie Bel HERRMANN Primary Care Provider [phone] Encounter Details Date Type Department Care Team (Latest Contact Info) Description 04/02/2025 Travel Social History Tobacco Use Types Packs/Day Years [...] on file documented as of this encounter Plan of Treatment Upcoming Encounters Date Type Department Care Team (Late st Contact Info) Description 04/09/2025 1:00 PM EDT Treatment [facility] [address] [facility] [address] [place] [address] Roxanne Sánchez, MOVIE PRODUCER 04/11/2025 11:30 AM EDT Treatment [facility] [address] [facility] [address] [place] [address] Ronal Andrews, MOVIE PRODUCER 04/14/2025 11:30 AM EDT Treatment [facility] [address] [facility] [address] [place] [address] Ronal Andrews, MOVIE PRODUCER 04/15/2025 8:30 AM EDT Treatment [facility] [address] [facility] [address] [place] [address] Kenny Aldana, PT [address] [facility] [address] [place] [address] 04/17/2025 11:00 AM EDT Treatment [facility] [address] [facility] [address] [place] [address] Ronal Andrews, MOVIE PRODUCER 05/26/2025 10:15 AM EDT Procedure Visit [facility] [address] [place] [phone] Kole Batista, DPM [address] [place], [place] [phone] documented as of this encounter Visit Diagnoses Not on filedocumented in this encounter Care Teams Radar Scientist Relationship Specialty Start Date End Date Arnie Lund DO [address] [facility] [place] [address] PCP - General Internal Medicine 02/18/25 documented as of this encounter
--- OUTSIDE RECORDS SUMMARY | 2025-04-08 10:47 | XMS_ITS | Encounter Summary ---
Author Organization [employer] Address [id number] [address] [place] [address] Care Team Providers Care Vertical Punch Operator Name Role Phone Arnie Lund DO Primary Care Provider [phone] Encounter Details Date Type Department Care Team (Late st Contact Info) Description 09/23/2022 Telephone PHN [facility] [address] [facility] [address] [place] [address] Etelvina Byrd RMA Social History Tobacco Use Types Packs/Day Years Used Date Smoking Tobacco: Former Smokeless Tobacco: Never Alcohol Use Standard Drinks/Week Comments Not Currently 0 (1 standard drink = 0.6 oz pur e alcohol) Childcare Answer Date Recorded Childcare Unknown 03/27/2019 Employment Answer Date Recorded Employment Unknown 03/27/2019 Purpose - Life Answer Date Recorded Purpose and direction in life Unknown Sex and Gender Information Value Date Recorded Sex Assigned at Not on file Legal Sex Male 11:38 AM EDT Gender Identity Not on file Sexual Orientation Not on file COVID-19 Exposure Response Date Recorded In the last month, have you been in contact with someone who was confirmed or suspected to have Coronavirus / COVID-19? No / Unsure 09/15/2022 1:42 PM EST documented as of this encounter Plan of Treatment Not on file documented as of this encounter Visit Diagnoses Not on filedocumented in this encounter Care Teams Vertical Punch Operator Relationship Specialty Start Date End Date Arnie Lund DO PCP - General Internal Medicine 11/11/21 documented as of this encounter
--- OUTSIDE RECORDS SUMMARY | 2025-04-08 10:47 | XMS_ITS | Encounter Summary ---
Author Organization [facility] Address [address] [place] [address] Care Team Providers Care Coach Operator Name Role Phone Arnie Lund DO Primary Care Provider [phone] Reason for Visit * Reason Comments Med Refill Encounter Details Date Type Department Care Team (Late st Contact Info) Description 01/04/2024 Refill [facility] [address] [place] [address] Adan Ortiz MD [address] [place] [address] Persistent atrial fibrillation (CMS/HCC) Social History Tobacco Use Types Packs/Day Years Used Date Smoking Tobacco: Former Cigarettes Q uit: 1982 Smokeless Tobacco: Never Alcohol Use Standard Drinks/Week Comments Yes 0 (1 standard drink = 0.6 oz pur e alcohol) OCCASIONAL PHQ-2 Answer Date Recorded Patient Health Questionnaire-2 Score 0 04/25/2023 [place] Safety & Environment Answer Date Rec orded [...] Description 04/14/2025 2:45 PM EDT Office Visit [facility] Heart at [facility] [address] [place] [address] Adan Ortiz MD [address] [facility] [address] [place] [address] documented as of this encounter Visit Diagnoses Diagnosis Persistent atrial fibrillation (CMS/HCC) Atrial fibrillation documented in this encounter Care Teams Coach Operator Relationship Specialty Start Date End Date Arnie Lund DO [address] [facility] [place] [address] PCP - General 06/07/22 documented as of this encounter
--- OUTSIDE RECORDS SUMMARY | 2025-04-08 10:47 | XMS_ITS | Encounter Summary ---
Author Organization [facility] Address [address] [place] [address] Care Team Providers Care Human Insights Lead Ads Marketing Name Role Phone Arnie Lund DO Primary Care Provider [phone] Reason for Visit * Reason Comments Med Refill Encounter Details Date Type Department Care Team (Late st Contact Info) Description 04/15/2023 Refill [facility] Cardiology [address] [place] [address] Little Mckeon, BREWING TECHNICIAN [address] [place] [phone] Social History Tobacco Use Types Packs/Day Years Used Date Smoking Tobacco: Former Cigarettes Smokeless Tobacco: Never Alcohol Use Standard Drinks/Week Comments Yes 0 (1 standard drink = 0.6 oz pur e alcohol) OCCASIONAL PHQ-2 Answer Date Recorded Patient Health Questionnaire-2 Score 0 12/22/2022 Sex and Gender Information Value Date Recorded Sex Assigned at Male 06/12/2023 6:32 AM EDT Legal Sex Male 11:44 PM EDT Gender Identity Male 06/12/2023 6:32 AM EDT Sexual Orientation Heterosexual or Straight 05/17 6:32 AM EDT COVID-19 Exposure Response Date Recorded In the last 10 days, have yo u been in contact with someone who was confirmed or suspected to have Coronavirus/COVID-19? No / Unsure 04/04/2023 11:30 AM EDT documented as of this encounter Plan of Treatment Upcoming Encounters Date Type Department Care Team (Late st Contact Info) Description 04/14/2025 2:45 PM EDT Office Visit [facility] Heart at [facility] [address] [facility] [place] [address] Adan Ortiz MD [address] [facility] [place] [address] documented as of this encounter Visit Diagnoses Not on filedocumented in this encounter Care Teams Human Insights Lead Ads Marketing Relationship Specialty Start Date End Date rAnie Lund DO [address] [facility] [address] PCP - General 06/07/22 documented as of this encounter
--- OUTSIDE RECORDS SUMMARY | 2025-04-08 10:47 | XMS_ITS | Encounter Summary ---
Author Organization [facility] Address [address] [place] [address] Care Team Providers Care [place]en [place] Utility Worker Name Role Phone Arnie Lund Primary Care Provider [phone] Encounter Details Date Type Department Care Team (Late st Contact Info) Description 04/04/2025 Bamboo flowsheet [facility] [address] [place] [address] [place] [phone] Ronal Andrews PTA Social History Tobacco Use Types Packs/Day Years [...] CI PT [address] [place] [address] [place] [phone] Roxanne Sánchez PTA 04/11/2025 11:30 AM EDT Treatment [facility] [address] [facility] [address] [place] [address] Darryl Ronal, MANDREL PRESS HAND 04/14/2025 11:30 AM EDT Treatment [facility] [address] [facility] [address] [place] [address] JamalRonal chand, MANDREL PRESS HAND 04/15/2025 8:30 AM EDT Treatment [facility] [address] [facility] [address] [place] [address] Kenny Aldana, PT [address] [facility] [address] [place] [address] 04/17/2025 11:00 AM EDT Treatment [facility] [address] [facility] [address] [place] [address] Parag Andrewsall, MANDREL PRESS HAND 05/26/2025 10:15 AM EDT Procedure Visit [facility] [address] [place] [address] Kole Batista, DPM [address] [place], [place] [phone] documented as of this encounter Visit Diagnoses Not on filedocumented in this encounter Care Teams Woolen Mill Utility Worker Relationship Specialty Start Date End Date Arnie Lund DO [address] [facility] [place] [address] PCP - General Internal Medicine 02/18/25 documented as of this encounter
--- OUTSIDE RECORDS SUMMARY | 2025-04-08 10:47 | XMS_ITS | Encounter Summary ---
Author Organization [facility] Address [address] [place] [address] Care Team Providers Care Generator Operator Straight Bevel Gear Name Role Phone KevonArnie Bel HERRMANN Primary Care Provider [phone] Encounter Details Date Type Department Care Team (Latest Contact Info) Description 03/31/2025 Travel Social History Tobacco Use Types Packs/Day [...] Treatment [facility] [address] [facility] [address] [place] [address] Roxanne Sánchez, SALES ASSOCIATE 04/11/2025 11:30 AM EDT Treatment [facility] [address] [facility] [address] [place] [address] Ronal Andrews, SALES ASSOCIATE 04/14/2025 11:30 AM EDT Treatment [facility] [address] [facility] [address] [place] [address] Ronal Andrews, SALES ASSOCIATE 04/15/2025 8:30 AM EDT Treatment [facility] [address] [facility] [address] [place] [address] Kenny Aldana, PT [address] [facility] [address] [place] [address] 04/17/2025 11:00 AM EDT Treatment [facility] [address] [facility] [address] [place] [address] Ronal Andrews, SALES ASSOCIATE 05/26/2025 10:15 AM EDT Procedure Visit [facility] [address] [place] [phone] Kole Batista, DPM [address] [place], [place] [phone] documented as of this encounter Visit Diagnoses Not on filedocumented in this encounter Care Teams Generator Operator Straight Bevel Gear Relationship Specialty Start Date End Date Arnie Lund DO [address] [facility] [place] [address] PCP - General Internal Medicine 02/18/25 documented as of this encounter
--- OUTSIDE RECORDS SUMMARY | 2025-04-08 10:47 | XMS_ITS | Encounter Summary ---
Author Organization [facility] Address [address] [place] [address] Care Team Providers Care Beauty Culturist Apprentice Name Role Phone KevonArnie Bel HERRMANN Primary Care Provider [phone] Encounter Details Date Type Department Care Team (Latest Contact Info) Description 03/26/2025 Travel Social History Tobacco Use Types Packs/Day [...] Treatment [facility] [address] [facility] [address] [place] [address] Roxanne Sánchez, BOOK CLEANER 04/11/2025 11:30 AM EDT Treatment [facility] [address] [facility] [address] [place] [address] Ronal Andrews, BOOK CLEANER 04/14/2025 11:30 AM EDT Treatment [facility] [address] [facility] [address] [place] [address] Ronal Andrews, BOOK CLEANER 04/15/2025 8:30 AM EDT Treatment [facility] [address] [facility] [address] [place] [address] Kenny Aldana, PT [address] [facility] [address] [place] [address] 04/17/2025 11:00 AM EDT Treatment [facility] [address] [facility] [address] [place] [address] Ronal Andrews, BOOK CLEANER 05/26/2025 10:15 AM EDT Procedure Visit [facility] [address] [place] [address] Kole Batista, DPM [address] [place], [place] [id number] documented as of this encounter Visit Diagnoses Not on filedocumented in this encounter Care Teams Beauty Culturist Apprentice Relationship Specialty Start Date End Date Arnie Lund DO [address] [facility] [place] [address] PCP - General Internal Medicine 02/18/25 documented as of this encounter
--- OUTSIDE RECORDS SUMMARY | 2025-04-08 10:47 | XMS_ITS | Encounter Summary ---
Author Organization [facility] Address [address] [place] [address] Care Team Providers Care Knitted Goods Shaper Name Role Phone Arnie Lund DO Primary Care Provider [phone] Encounter Details Date Type Department Care Team (Late st Contact Info) Description 02/20/2025 Orders Only [facility] [address] [place] [address] Sarwat Lazo MD [address] [place] [address] Social History Tobacco Use Types Packs/Day Years Used Date Smoking Tobacco: Former Cigarettes Q uit: 1982 Smokeless Tobacco: Never Alcohol Use Standard Drinks/Week Comments Yes 0 (1 standard drink = 0.6 oz pur e alcohol) OCCASIONAL PHQ-2 Answer Date Recorded Patient Health Questionnaire-2 Score 0 04/25/2023 [place] Safety & Environment Answer Date Rec orded [...] Description 04/14/2025 2:45 PM EDT Office Visit [facility] [address] [place] [address] Aadn Ortiz MD [address] [facility] [address] [facility] [place] [address] documented as of this encounter Procedures Procedure Name Priority Date/Time Associated Diagnosis Comments CARDIAC DEVICE CHECK - REMOTE - ICD Routine 02/20/2025 12:00 AM EDT documented in this encounter Results * Cardiac device check - Remote ICD (02/20/2025 12:00 AM EDT) Anatomical Region Laterality Modality Other 02/20/2025 Sarwat Lazo MD CV IMPLANTABLE CARDIAC DEVICE PROCEDURES Final Result documented in this encounter Visit Diagnoses Not on filedocumented in this encounter Care Teams Knitted Goods Shaper Relationship Specialty Start Date End Date Arnie Lund DO [address] [place] [address] PCP - General 06/07/22 documented as of this encounter
--- OUTSIDE RECORDS SUMMARY | 2025-04-08 10:47 | XMS_ITS | Encounter Summary ---
Author Organization [employer] Address [id number] [address] [place] [address] Care Team Providers Care Software Systems Analyst Name Role Phone Arnie Lund DO Primary Care Provider [phone] Encounter Details Date Type Department Care Team (Late st Contact Info) Description 04/14/2023 Telephone PHN [facility] [address] [place] [address] Etelvina Byrd RMA Social History Tobacco Use [...] on file Sexual Orientation Not on file documented as of this encounter Miscellaneous Notes * Telephone Encounter - TRINI Wood - 04/14/2023 9:48 AM EDT Patient's called and is asking if you could call her back. documented in this encounter Plan of Treatment Not on file documented as of this encounter Visit Diagnoses Not on filedocumented in this encounter Care Teams Software Systems Analyst Relationship Specialty Start Date End Date Arnie Lund DO PCP - General Internal Medicine 11/11/21 documented as of this encounter
--- OUTSIDE RECORDS SUMMARY | 2025-04-08 10:47 | XMS_ITS | Clinical Summary ---
Author Organization [employer] tem Address [id number] [address] [place] [address] Care Team Providers Care Brim Greaser Operator Name Role Phone Kevon Arnie Bel HERRMANN Primary Care Provider [phone] Allergies Active Allergy Reactions Criticality Noted Date Comments Dbbhgci-Gio-Wjw Reductase Inhibitors 11/03/2021 Medications allopurinoL (ZYLOPRIM) 100 mg tablet Take 1 tablet (100 mg total) by mouth in the morning. Active amLODIPine (NORVASC) 10 mg tablet Take 1 tablet (10 mg total) by mouth in the morning. Active hydrALAZINE (APRESOLINE) 100 mg tablet Take 1 tablet (100 mg total) by mouth 3 (three) times a day. Active metoprolol succinate XL (TOPROL-XL) 50 mg 24 hr tablet Take 2 tablets (100 mg total) by mouth in the morning. Active potassium chloride (K-TAB,KLOR-CON ) 10 MEQ CR tablet Take 1 tablet (10 mEq total) by mouth in the morning. Active cholecalciferol , vitamin D3, 5,000 units tablet Take 1 tablet (5,000 Units total) by mouth in the morning. Active isosorbide dinitrate (ISORDIL) 10 mg tablet Take 1 tablet (10 mg total) by mouth 3 (three) times a day with meals. Active apixaban (ELIQUIS) 5 mg tablet Take 1 tablet (5 mg total) by mouth in the morning and 1 tablet (5 mg total) before bedtime. 02/16/2023 Active TRELEGY ELLIPTA 200-62.5-25 mcg blister with device Inhale 1 puff in the morning. 02/22/2023 Active niacin (VITAMIN B3) 500 mg tablet Take 1 tablet (500 mg total) by mouth daily with breakfast. Active methIMAzole (TAPAZOLE) 10 mg tablet Take 0.5 tablets (5 mg total) by mouth every other day. 02/08/2024 Active losartan (COZAAR) 25 mg tablet Take 1 tablet (25 mg total) by mouth in the morning. 90 tablet 3 08/08/2024 Active furosemide (LASIX) 80 mg tablet Take 1 tablet (80 mg total) by mouth daily. 90 tablet 3 09/30/2024 Active Active Problems Problem Noted Date Diagnosed Date Chronic kidney disease, stage 4 (severe) 022 Diabetes mellitus type 2, controlled 11/03/2021 Hypertension 11/03/2021 Chronic systolic heart failure 11/03/2021 COPD (chronic obstructive pulmonary disease) Encounters Date Type Department Care Team Description 01/27/2025 Telephone N [facility] [address] [place] [address] Connie Dunham CMA 01/10/2025 Telephone [facility] [address] [place] [address] Connie Dunham CMA from Last 3 Months Family History Medical History Relation Name Comments Diabetes Father Hypertension Father Diabetes Mother Hypertension Mother Relation Name Status Comments Father Mother Social History Tobacco Use Types Packs/Day Years Used Date Smoking Tobacco: Former Smokeless Tobacco: Never Tobacco Cessation:Counseling Given: Not Answered Alcohol Use Standard Drinks/Week Comments Not Currently [...] on file Sexual Orientation Not on file Last Filed Vital Signs Vital Sign Reading Time Taken Comments Blood Pressure 150/80 08/08/2024 10:27 AM EDT Pulse 72 08/08/2024 10:27 AM EDT Temperature 36.7 C (98.1 F) 11/11/2021 10:01 AM EST Respiratory Rate - - Oxygen Saturation 95% 10/05/2023 4:11 PM EST Inhaled Oxygen Concentration - - Weight 99.2 kg (218 lb 12.8 oz) 024 10:25 AM EDT Height 180.3 cm (5' 11 ) 08/08/2024 10: 25 AM EDT Body Mass Index 30.52 08/08/2024 10:25 AM EDT Plan of Treatment Health Maintenance Due Date Last Done Comments Depression Screening 1954 DTaP,Tdap and Td Vaccines (1 - Tdap) 1961 Zoster (Shingles) Vaccine (1 of 2) 1992 Fall Risk Screening 2007 COVID-19 Vaccine (2023-2 5 season) 2025 07/22/2024, 07/20/2023, 07/10/2022, Additional history exists Influenza Vaccine 06/16/2025 07/15/2024, , 07/04/2022, Additional history exists Tobacco Screening 08/08/2025 08/08/2024 Medical Devices Not on file Insurance [facility] [address] [id number] MEDICARE [facility] Care Teams Brim Greaser Operator Relationship Specialty Start Date End Date Arnie Lund DO PCP - General Internal Medicine 11/11/21
--- OUTSIDE RECORDS SUMMARY | 2025-04-08 10:47 | XMS_ITS | Referral Summary ---
Author Organization [facility] Address [address] [place] [address] Care Team Providers Care Superintendent Ammunition Storage Name Role Phone Arnie Lund DO Primary Care Provider [phone] Encounters Date Type Department Care Team Description 03/25/2025 8:30 PM EDT Ancillary Procedure [facility] [address] [place] [address] Pre-operative cardiovascular examination, ICD in place 03/25/2025 10:00 AM EDT Ancillary Procedure [address] [address] Encounter for implantable defibrillator reprogramming or check 03/23/2025 Orders Only [facility] [address] [place] [address] Sarwat Lazo MD 03/06/2025 Orders Only [facility] [address] [place] [address] Little Mckeon CNP 02/26/[address] [address] Juana Garrett MA Chronic systolic heart failure (CMS/HCC) 02/26/2025 Orders Only [facility] [address] [place] [address] Kalee Mahmood MA Chronic systolic heart failure (CMS/HCC) 02/21/2025 5:15 PM EDT Ancillary Procedure [facility] [address] [place] [address] Pre-operative cardiovascular examination, ICD in place 02/21/2025 4:40 PM EDT Ancillary Procedure [facility] [address] [place] [address] Pre-operative cardiovascular examination, ICD in place 02/20/2025 Orders Only [facility] [address] [place] [address] Mariusz Montoya MD 02/20/2025 Orders Only [facility] [address] [place] [address] Sarwat Lazo MD 01/29/2025 Telephone [facility] [address] [place] [facility] [place] [address] Little Mckeon CNP 01/28/2025 10:40 AM EDT Office Visit [facility] [address] [place] [facility] [place] [address] Little Mckeon CNP PAF (paroxysmal atrial fibrillation) (CMS/HCC) (Primary Dx); Fall, initial encounter; Chronic systolic heart failure (CMS/HCC); 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; Mixed hyperlipidemia; Benign hypertensive heart disease with heart failure (CMS/HCC); Stage 4 chronic kidney disease (CMS/HCC); Biventricular implantable cardioverter-defibrill ator (ICD) in situ 01/20/2025 8:20 PM EDT Ancillary Procedure [facility] [address] [place] [address] Pre-operative cardiovascular examination, ICD in place from Last 3 Months Allergies Active Allergy Reactions Criticality Noted Date Comments Vcctads-Vca-Rvz Reductase Inhibitors 06/09/2022 Tramadol 06/09/2022 Medications allopurinol (Zyloprim) 100 mg tablet Take 1 tablet by mouth in the morning. Active cholecalciferol, vitamin D3, 100 mcg (4,000 unit) capsule Take 1 capsule every day by oral route. Active niacin 500 mg tablet Take 1 tablet every day by oral route. Active potassium chloride CR (Klor-Con) 10 mEq ER tablet Take 1 tablet every day by oral route for 30 days. Active methIMAzole (Tapazole) 5 mg tablet Take 5 mg by mouth 2 (two) times a week. 2 Active Trelegy Ellipta 200-62.5-25 mcg blister with deviceIndication s:Mild asthma, unspecified whether complicated, unspecified whether persistent INHALE 1 INHALATION BY MOUTH IN THE MORNING 180 each 3 3 Active ezetimibe (Zetia) 10 mg tabletIndication s:Hyperlipemia, mixed TAKE 1 TABLET BY MOUTH AT BEDTIME 90 tablet 3 4 Active furosemide (Lasix) 80 mg tablet Take 80 mg by mouth in the morning. Active metoprolol succinate XL (Toprol-XL) 100 mg 24 hr tabletIndication s:Persistent atrial fibrillation (CMS/HCC) Take 1 tablet (100 mg) by mouth once daily as directed. Do not crush or chew. 90 tablet 3 4 Active Eliquis 2.5 mg tabletIndication s:Paroxysmal atrial fibrillation (CMS/HCC) TAKE 1 TABLET BY MOUTH IN THE MORNING AND AT BEDTIME 180 tablet 3 4 Active amiodarone (Pacerone) 200 mg tabletIndication s:Paroxysmal atrial fibrillation (CMS/HCC) Take 1 tablet (200 mg) by mouth in the morning. DO NOT START BEFORE SEPTEMBER 25 2024 90 tablet 3 4 09/16/20 25 Active isosorbide dinitrate (Isordil) 10 mg tabletIndication s:Chest pain, unspecified type TAKE 1 TABLET BY MOUTH 3 TIMES DAILY 270 tablet 3 4 Active Additional Information Patient taking differently:10 mg oral2 times daily, Reported on 02/14/2025 ascorbic acid (Vitamin C) 500 mg ER capsule Take 200 mg by mouth in the morning. Active ferrous sulfate 325 (65 Fe) MG EC tablet Take 65 mg of iron by mouth with breakfast, with lunch, and with evening meal. Do not crush, chew, or split. Active rivaroxaban (Xarelto) 15 mg tabletIndication s:PAF (paroxysmal atrial fibrillation) (CMS/HCC) Take 1 tablet (15 mg) by mouth daily with evening meal. Take with food. Active hydrALAZINE (Apresoline) 10 mg tabletIndication s:Chronic systolic heart failure (CMS/HCC) Take 1 tablet (10 mg) by mouth two times daily. 180 tablet 3 5 02/27/20 26 Active amLODIPine (Norvasc) 10 mg tablet Take 10 mg by mouth in the morning. Active levothyroxine (Synthroid, Levoxyl) 25 mcg tablet Take 25 mcg by mouth in the morning. 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 Pulmonary hypertension 03/29/2024 Thyrotoxicosis 03/29/2024 Type 2 diabetes mellitus with hyperglycemia 03/16 Stage 4 chronic kidney disease 09/22/2023 Statin intolerance 04/28/2023 Dilated cardiomyopathy 04/04/2023 Overview (04/04/2023): Added automatically from request for surgery [id number] Stage 3 chronic kidney disease 06/09/2022 Chronic systolic heart failure 06/09/2022 Assessment & Plan (09/20/2022 5:21 PM EST): -HFrEF -NHYA III -he appears euvolemic on exam despite weight gain, this could be attributed to correcting thyroid issues -He has no LE edema, JVD -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 boring machine operator helper regarding kidney function -he will need 3 month follow up with moukarbel -continue GDMT: norvasc, aspirin, bumex, hydralazine, isosorbide, toprolXL Dyslipidemia 06/09/2022 Edema of lower extremity 06/09/2022 Assessment & Plan (09/20/2022 5:23 PM EST): -this must be improved as he does not exhibit any LE edema Hypertensive disorder 06/09/2022 Assessment & Plan (09/20/2022 5:22 PM EST): -he is controlled today -will continue to re-evaluate on follow up pending nephrology recommendations Left ventricular systolic dysfunction 06/09/2022 Proteinuria 06/09/2022 COPD (chronic obstructive pulmonary disease) Osteomyelitis of vertebra 07/06/2021 Bacteremia 06/16/2021 Hyperlipidemia 06/16/2021 Type 2 diabetes mellitus 06/16/2021 Paroxysmal atrial flutter 08/16/2019 Resolved Problems Problem Noted Date Diagnosed Date Resolved Date Cardiomegaly 06/16/2021 04/28/2023 Immunizations Immunization Administration Dates Next Due Influenza, Unspecified 07/16/2019 Unspecified Sars-Cov-2 Vaccination 12/03/2020, Social History Tobacco Use Types Packs/Day Years Used Date Smoking Tobacco: Former Cigarettes Q uit: 1982 Smokeless Tobacco: Never Tobacco Cessation:Counseling Given: Not Answered Alcohol Use Standard Drinks/Week Comments Yes 0 (1 standard drink = 0.6 oz pur e alcohol) OCCASIONAL PHQ-2 Answer Date Recorded Patient Health Questionnaire-2 Score 0 04/25/2023 [place] Safety & Environment Answer Date Rec orded [...] Heterosexual or Straight 05/17 6:32 AM EDT Last Filed Vital Signs Vital Sign Reading Time Taken Comments Blood Pressure 128/69 01/28/2025 10:41 AM EDT Pulse 68 01/28/2025 10:41 AM EDT Temperature 36.1 C (97 F) 07/08/2021 2:48 PM EDT Respiratory Rate 11 10/17/2024 12:27 PM EST Oxygen Saturation 97% 01/28/2025 10:41 AM EDT Inhaled Oxygen Concentration - - Weight 88.5 kg (195 lb) 01/28/2025 10:41 AM EDT Height 180.3 cm (5' 11 ) 01/28/2025 10:41 AM EDT Body Mass Index 27.2 01/28/2025 10:41 AM EDT Plan of Treatment Upcoming Encounters Date Type Department Care Team (Late st Contact Info) Description 04/14/2025 2:45 PM EDT Office Visit [facility] [address] [place] [address] Adan Ortiz MD [address] [facility] [address] [place] [address] Medical Devices Implanted Type Area Terminal Gauger Supervisor Device Identifier Shelf Expiration Date Model / Serial / Lot Rivacor 7 Hf-T Qp Implanted:Qty: 1 on 06/12/2023 by Mariusz Montoya MD at [facility] MACHINIST LINOTYPE-D ICD Biotronik [id number] 08/15/2024 [id number] / [id number] / Plexa Promri S 60 - [id number] - [id number] Implanted:Qty: 1 on 06/12/2023 by Mariusz Montoya MD at [facility] Lead Biotronik [id number] 01/13/2025 [id number] / [id number] / Lead,Sentus,Qp L-85 - [id number] - [id number] Implanted:Qty: 1 on 06/12/2023 by Mariusz Montoya MD at [facility] Lead [employer]ik [id number] 12/13/2024 [id number] / [id number] / Procedures Procedure Name Priority Date/Time Associated Diagnosis Comments CARDIAC DEVICE CHECK CHECK - REMOTE Routine 04/07/2025 1:09 PM EDT Pre-operative cardiovascular examination, ICD in place CARDIAC DEVICE CHECK - IN CLINIC - ICD BIVENTRICULAR CHAMBER W/ PROG Routine 03/26/2025 11:58 AM EDT Encounter for implantable defibrillator reprogramming or check CARDIAC DEVICE CHECK - REMOTE - ICD Routine 03/23/2025 12:00 AM EDT CARDIAC DEVICE CHECK CHECK - REMOTE Routine 03/04/2025 10:54 AM EDT Pre-operative cardiovascular examination, ICD in place CARDIAC DEVICE CHECK CHECK - REMOTE Routine 03/04/2025 10:44 AM EDT Pre-operative cardiovascular examination, ICD in place CARDIAC DEVICE CHECK - REMOTE - ICD Routine 02/20/2025 12:00 AM EDT CARDIAC DEVICE CHECK - REMOTE - ICD Routine 02/20/2025 12:00 AM EDT CARDIAC DEVICE CHECK - REMOTE - ICD Routine 01/23/2025 11:29 AM EDT Pre-operative cardiovascular examination, ICD in place HEMOGLOBIN A1C Routine 04/01/2022 5:51 AM EDT from Last 3 Months or Most Recently Relevant to Health Maintenance Results * CARDIAC DEVICE CHECK - REMOTE - ICD (04/07/2025 1:09 PM EDT) Only the most recent of4 resultswithin the time period is included. us Mariusz Montoya MD CV IMPLANTABLE CARDIAC DEVICE NV OCEDURES Final Result CPACS * CARDIAC DEVICE CHECK - IN CLINIC [...] Mariusz Montoya MD CV IMPLANTABLE CARDIAC DEVICE NV OCEDURES Final Result * Cardiac device check - Remote ICD (03/23/2025 12:00 AM EDT) Only the most recent of3 resultswithin the time period is included. Anatomical Region Laterality Modality Other 03/23/2025 us Sarwat Lazo MD CV IMPLANTABLE CARDIAC DEVICE PROCEDURES Final Result * (ABNORMAL) Hemoglobin A1c (04/01/2022 5:51 AM EDT) Hemoglobin A1C 6.4(H) 4.0 - 6.0 % LAB CONVERSIONS Estimated Average Glucose 137 mmol/L LAB CONVERSIONS 04/01/2022 5:51 AM EDT 04/01/2022 6:04 AM EDT Narrative LAB CONVERSIONS - 04/01/2022 2:09 PM EDT If not done in ED No: Do not add to previous draw us Generic Provider Conversion LAB BLOOD ORDERABLES Final Result LAB CONVERSIONS from Last 3 Months or Most Recently Relevant to Health Maintenance Insurance MEDICARE Member Subscriber Plan / Payer (Ef fective 2007-Present) Name:Nas Oliver Member ID:[id number] Relation to Subscriber:Self Name:Nas Oliver Subscriber ID:[id number] Payer ID:[id number] Group ID:Not on file Type:Medicare Address: [facility] [address] Advance Directives * Full Code (Latest Code Status on File) Date Activated Date Inactivated Comments 06/12/2023 10:55 AM 06/12/2023 2:41 PM Care Teams Superintendent Ammunition Storage Relationship Specialty Start Date End Date Arnie Lund DO [address] [place] [address] PCP - General 06/07/22
--- OUTSIDE RECORDS SUMMARY | 2025-04-08 10:47 | XMS_ITS | Encounter Summary ---
Author Organization [employer] Address [id number] [address] [place] [address] Care Team Providers Care Scale Tank Operator Name Role Phone Kevon Arnie Bel HERRMANN Primary Care Provider [phone] Reason for Visit * Reason Onset Date Comments ER 07/18/2024 Encounter Details Date Type Department Care Team (Late st Contact Info) Description 07/18/2024 Telephone PHN [facility] [address] [place] [phone] Americo Shaw MD [address] [place], [place] [id number] ER Social History Tobacco Use Types Packs/Day Years [...] encounter Miscellaneous Notes * Telephone Encounter - Minerva Prabhakar - 07/18/2024 8:13 AM EDT Patient seen in [facility] 07/17/24 for dizziness, weakness, BP 73/50, 3.5 Creatinine. Please contact patient/spouse for recommendations. Patient is feeling much better this morning. * Telephone Encounter - Michelle Bejarano LPN - 07/18/2024 8:13 AM EDT Have we received any records from [facility]? If not can you call and get them please? documented in this encounter Plan of Treatment Not on file documented as of this encounter Visit Diagnoses Not on filedocumented in this encounter Care Teams Scale Tank Operator Relationship Specialty Start Date End Date Arnie Lund DO PCP - General Internal Medicine 11/11/21 documented as of this encounter
--- OUTSIDE RECORDS SUMMARY | 2025-04-08 10:47 | XMS_ITS | Encounter Summary ---
Author Organization [facility] Address [address] [place] [address] Care Team Providers Care Groundwater Consultant Name Role Phone Arnie Lund DO Primary Care Provider [phone] Encounter Details Date Type Department Care Team (Late st Contact Info) Description 03/23/2025 Orders Only [facility] [address] [place] [address] Sarwat Lazo MD [address] [place] [address] Social History Tobacco Use Types Packs/Day Years Used Date Smoking Tobacco: Former Cigarettes Q uit: 1982 Smokeless Tobacco: Never Alcohol Use Standard Drinks/Week Comments Yes 0 (1 standard drink = 0.6 oz pur e alcohol) OCCASIONAL PHQ-2 Answer Date Recorded Patient Health Questionnaire-2 Score 0 04/25/2023 [place] Safety & Environment Answer Date Rec orded [...] Description 04/14/2025 2:45 PM EDT Office Visit [facility] [address] [place] [address] Adan Ortiz MD [address] [facility] [address] [facility] [place] [address] documented as of this encounter Procedures Procedure Name Priority Date/Time Associated Diagnosis Comments CARDIAC DEVICE CHECK - REMOTE - ICD Routine 03/23/2025 12:00 AM EDT documented in this encounter Results * Cardiac device check - Remote ICD (03/23/2025 12:00 AM EDT) Anatomical Region Laterality Modality Other 03/23/2025 Sarwat Lazo MD CV IMPLANTABLE CARDIAC DEVICE PROCEDURES Final Result documented in this encounter Visit Diagnoses Not on filedocumented in this encounter Care Teams Groundwater Consultant Relationship Specialty Start Date End Date Arnie Lund DO [address] [facility] [place] [address] PCP - General 06/07/22 documented as of this encounter
--- OUTSIDE RECORDS SUMMARY | 2025-04-08 10:47 | XMS_ITS | Encounter Summary ---
Author Organization [facility] Address [address] [place] [address] Care Team Providers Care Applications Support Specialist Name Role Phone Arnie Lund Primary Care Provider [phone] Encounter Details Date Type Department Care Team (Late st Contact Info) Description 03/28/2025 Bamboo flowsheet [facility] [address] [place] [phone] Ronal Andrews PTA Social History Tobacco Use [...] CI PT [address] [place] [address] Roxanne Sánchez PTA 04/11/2025 11:30 AM EDT Treatment [facility] [address] [facility] [place] [address] [place] [address] Darryl Ronal, VICE PRESIDENT OF DEVELOPMENT 04/14/2025 11:30 AM EDT Treatment [facility] [address] [facility] [place] [address] [place] [address] JamalRonal chand, VICE PRESIDENT OF DEVELOPMENT 04/15/2025 8:30 AM EDT Treatment [facility] [address] [facility] [place] [address] [place] [address] Kenny Aldana, PT [address] [facility] [address] [place] [address] 04/17/2025 11:00 AM EDT Treatment [facility] [address] [facility] [place] [address] [place] [address] Parag Andrewsall, VICE PRESIDENT OF DEVELOPMENT 05/26/2025 10:15 AM EDT Procedure Visit [facility] [address] [place] [phone] Kole Batista, DPM [address] [employer], [place] [phone] documented as of this encounter Visit Diagnoses Not on filedocumented in this encounter Care Teams Applications Support Specialist Relationship Specialty Start Date End Date Arnie Lund DO [address] [facility] [place] [address] PCP - General Internal Medicine 02/18/25 documented as of this encounter
--- OUTSIDE RECORDS SUMMARY | 2025-04-08 10:47 | XMS_ITS | Encounter Summary ---
Author Organization [facility] Address [address] [place] [address] Care Team Providers Care Airborne Operations Name Role Phone Kevon Arnie Bel HERRMANN Primary Care Provider [phone] Encounter Details Date Type Department Care Team (Late st Contact Info) Description 02/24/2025 External Result Encounter [facility] External Department Unsolicited Chivo Keller DO [address] [place] [address] Social History Tobacco Use Types Packs/Day Years [...] Encounters Date Type Department Care Team (Late Contact Info) Description 04/09/2025 1:00 PM EDT Treatment [facility] [address] [place] [phone] Roxanne Sánchez PTA 04/11/2025 11:30 AM EDT Treatment [facility] [address] [place] [address] JamalRonal chand, WAXING MACHINE OPERATOR 04/14/2025 11:30 AM EDT Treatment [facility] [address] [place] [address] Darryl Ronal, WAXING MACHINE OPERATOR 04/15/2025 8:30 AM EDT Treatment [facility] [address] [place] [address] EmilyKenny levin T, PT [address] [place] [address] 04/17/2025 11:00 AM EDT Treatment [facility] [address] [facility] [address] [place] [address] Darryl Ronal, WAXING MACHINE OPERATOR 05/26/2025 10:15 AM EDT Procedure Visit [facility] [address] [place] [address] Kole Batista, DPM [address] [place], [place] [phone] documented as of this encounter Procedures Procedure Name Priority Date/Time Associated Diagnosis Comments CT ABDOMEN PELVIS WO IV CONTRAST 02/24/2025 11:25 AM EDT documented in this encounter Results * CT abdomen pelvis wo IV contrast (02/24/2025 11:25 AM EDT) Anatomical Region Laterality Modality Body, Pelvis, Abdomen Computed T omography 02/24/2025 11:2 5 AM EDT Impressions 02/24/2025 11:[address] evidence of progression disease seen within the chest, abdomen or pelvis. Impression dictated by: Sotero Scott Jr. DKeoOKeo 02/24/2025 11:32 AM Dictation Location: [place] [address] Transcribed By: CALI 02/24/25 1132 Dictated By: Sotero Scott Jr, DO 02/24/25 1125 Signed By: <Electronically signed by Sotero Scott Jr, DO in OV> 02/24/25 1132 Narrative 02/24/2025 11:34 AM EDT [facility] Main [place] [address] [place], [place] [id number] CT Scan Report Signed Patient: Nas Alamo MR#: [id number] [birth year] : 1940 Acct:[id number] Age/Sex: 84 / M ADM Date: 02/24/25 Loc: Room: Type: [facility] RCR Attending Dr: Chivo Keller II, DO Copies to: Chivo Keller II, DO Ordering Provider: Chivo Keller II, DO Date of Service: 02/24/25 CT/CT chest wo con: D50.9 - Iron deficiency anemia, unspecified ([id number]) CT/CT abdomen pelvis wo con: D50.9 - Iron deficiency anemia, unspecified CT CHEST, ABDOMEN AND PELVIS WITHOUT INTRAVENOUS CONTRAST: CLINICAL HISTORY: Colon cancer follow-up. COMPARISON: CT chest, abdomen and pelvis 02/22/2024 TECHNIQUE: TECHNIQUE: Spiral images were obtained through the chest, abdomen and pelvis without the administration of IV contrast. This CT exam was performed using one or more following dose reduction techniques: Automated exposure control, adjustment of the mA and/or kV according to patient size, or use of iterative reconstruction technique. FINDINGS: CT chest: Mediastinum:Pacemaker device in place. Thoracic aorta appears normal in caliber. Pulmonary trunk appears nondilated. Cardiomegaly with trace pericardial effusion. Calcified mediastinal and hilar lymph nodes. The esophagus is grossly unremarkable. Lungs:Emphysematous changes. Bibasilar scarring. No consolidation pneumothorax or pleural effusion. Calcified granulomas. No suspicious noncalcified pulmonary nodule. Stable area of groundglass involving the right upper lobe. Soft tissues/Bones: No acute findings. Osseous structures demonstrate degenerative change. CT abdomen and pelvis: Organs:Suboptimal evaluation due to lack of IV contrast. Liver gallbladder pancreas spleen and left adrenal gland all appear unremarkable. Stable 12 mm nodule right adrenal gland. Aorta appears normal in caliber. Kidneys demonstrate no stone or hydronephrosis. Subcentimeter lesions involving both kidneys too small for accurate characterization. GI: Stomach is grossly unremarkable. Small bowel appears nondilated. No acute colonic abnormality is seen. Right hemicolectomy changes.[ Pelvis:[Urinary bladder and prostate gland appear unremarkable. Streak hardware artifact from the patient's right hip prosthesis limits evaluation.] Peritoneum/Retroperitoneum:No free air or free fluid or lymphadenopathy.[ Abd wall/Bones:No acute findings. Osseous structures demonstrate degenerative change.[ CT/CT chest wo con Procedure Note Sotero Scott Jr., DO - 02/24/2025 [facility] Main [place] [address] [place] [address] CT Scan Report Signed Patient: Nas Alamo DMR#: [id number] [birth year] : 2Acct:[id number] Age/Sex: 84 / MADM Date: 02/24/25 [facility]: [facility] Dr: Chivo Keller II DO Copies to: Chivo Keller II, DO Ordering Provider: Chivo Keller II, DO Date of Service: 02/24/25 CT/CT chest wo con: D50.9 - Iron deficiencyanemia, unspecified ([id number]) CT/CT abdomen pelvis wo con: D50.9 - Iron deficiencyanemia, unspecified CT CHEST, ABDOMEN AND PELVIS WITHOUT INTRAVENOUS CONTRAST: CLINICAL HISTORY: Colon cancer follow-up. COMPARISON: CT chest, abdomen and pelvis 02/22/2024 TECHNIQUE: TECHNIQUE: Spiral images were obtained through the chest,abdomen and pelvis without the administration of IV contrast. This CT exam was performed using oneor more following dose reduction techniques: Automated exposure control, adjustment of the mAand/or kV according to patient size, or use of iterative reconstruction technique. FINDINGS: CT chest: Mediastinum:Pacemaker device in place. Thoracic aorta appears normal incaliber. Pulmonary trunk appears nondilated. Cardiomegaly with trace pericardial effusion.Calcified mediastinal and hilar lymph nodes. The esophagus is grossly unremarkable. Lungs:Emphysematous changes. Bibasilar scarring. No consolidationpneumothorax or pleural effusion. Calcified granulomas. No suspicious noncalcified pulmonarynodule. Stable area of groundglass involving the right upper lobe. Soft tissues/Bones: No acute findings. Osseous structures demonstratedegenerative change. CT abdomen and pelvis: Organs:Suboptimal evaluation due to lack of IV contrast. Livergallbladder pancreas spleen and left adrenal gland all appear unremarkable. Stable 12 mm nodule right adrenalgland. Aorta appears normal in caliber. Kidneys demonstrate no stone or hydronephrosis.Subcentimeter lesions involving both kidneys too small for accurate characterization. GI: Stomach is grossly unremarkable. Small bowel appears nondilated. Noacute colonic abnormality is seen. Right hemicolectomy changes.[ Pelvis:[Urinary bladder and prostate gland appear unremarkable. Streakhardware artifact from the patient's right hip prosthesis limits evaluation.] Peritoneum/Retroperitoneum:No free air or free fluid or lymphadenopathy.[ Abd wall/Bones:No acute findings. Osseous structures demonstratedegenerative change.[ CT/CT chest wo con IMPRESSION: No CT evidence of progression disease seen within the chest, abdomen orpelvis. Impression dictated by: Sotero Scott Jr., D.O. 02/24/2025 11:32 AM Dictation Location: [facility]- Transcribed By: [facility] 02/24/25 1132 Dictated By: Sotero Scott Jr, DO 02/24/25 1125 Signed By: <Electronically signed by Sotero Scott Jr, DO inOV> 02/24/25 1132 Chivo Keller DO IMG CT PROCEDURES Final R esult documented in this encounter Visit Diagnoses Not on filedocumented in this encounter Care Teams Airborne Operations Relationship Specialty Start Date End Date Arnie Lund DO [address] [place] [address] PCP - General Internal Medicine 02/18/25 documented as of this encounter
--- OUTSIDE RECORDS SUMMARY | 2025-04-08 10:47 | XMS_ITS | Encounter Summary ---
Author Organization [facility] Address [address] [place] [address] Care Team Providers Care Grinder Set Up Operator Name Role Phone KevonArnie Bel HERRMANN Primary Care Provider [phone] Encounter Details Date Type Department Care Team (Latest Contact Info) Description 03/28/2025 Travel Social History Tobacco Use Types Packs/Day [...] Treatment [facility] [address] [facility] [address] [place] [address] Roxanne Sánchez, COMMERCIAL PAINTER 04/11/2025 11:30 AM EDT Treatment [facility] [address] [facility] [address] [place] [address] Ronal Andrews, COMMERCIAL PAINTER 04/14/2025 11:30 AM EDT Treatment [facility] [address] [facility] [address] [place] [address] Ronal Andrews, COMMERCIAL PAINTER 04/15/2025 8:30 AM EDT Treatment [facility] [address] [facility] [address] [place] [address] Kenny Aldana, PT [address] [facility] [address] [place] [address] 04/17/2025 11:00 AM EDT Treatment [facility] [address] [facility] [address] [place] [address] Ronal Andrews, COMMERCIAL PAINTER 05/26/2025 10:15 AM EDT Procedure Visit [facility] [address] [place] [address] Kole Batista, DPM [address] [place], [place] [phone] documented as of this encounter Visit Diagnoses Not on filedocumented in this encounter Care Teams Grinder Set Up Operator Relationship Specialty Start Date End Date Arnie Lund DO [address] [facility] [place] [address] PCP - General Internal Medicine 02/18/25 documented as of this encounter
--- OUTSIDE RECORDS SUMMARY | 2025-04-08 10:47 | XMS_ITS | Encounter Summary ---
Author Organization [email or web address] Address [id number] [address] [place] [address] Care Team Providers Care Deliverer Pharmacy Name Role Phone Arine Lund DO Primary Care Provider [phone] Reason for Visit * Reason Comments Med Refill Encounter Details Date Type Department Care Team (Late st Contact Info) Description 11/03/2023 Refill PHN [facility] [address] [place] [address] Americo Shaw MD [address] [place] [address] Social History Tobacco Use Types Packs/Day Years [...] on filedocumented in this encounter Care Teams Deliverer Pharmacy Relationship Specialty Start Date End Date Arnie Lund DO PCP - General Internal Medicine 11/11/21 documented as of this encounter
--- OUTSIDE RECORDS SUMMARY | 2025-04-08 10:47 | XMS_ITS | Encounter Summary ---
Author Organization [employer] Address [id number] [address] [place] [address] Care Team Providers Care Ocean Clam Boat Captain Name Role Phone Arnie Lund DO Primary Care Provider [phone] Encounter Details Date Type Department Care Team (Late st Contact Info) Description 04/13/2023 Telephone PHN [facility] [address] [place] [address] External, Scanning Provider Social History Tobacco Use Types Packs/Day Years [...] encounter Miscellaneous Notes * Telephone Encounter - Roslyn Wagner - 04/13/2023 12:26 PM EDT Patient's called and stated that her 's legs have been swelling all week. Please call back to advise. * Telephone Encounter - Shira Shannon LPN - 04/13/2023 12:26 PM EDT Patient called and stated he has swelling up to knee denies weight gain however the patient is SOB and Bilateral pitting edema he is having a good diuretic affect from his Bumex 1 mg. She is growing concerned patient has afib and cardiology is planning to see pt in May but they will not manage diuretics. * Telephone Encounter - NHI Torres - 04/13/2023 12:26 PM EDT Was this already handled? * Telephone Encounter - NHI Bennett - 04/13/2023 12:26 PM EDT Increase Bumex to 2 mg b.i.d. for 3 days and continue 2 mg daily thereafter. Repeat a BMP and magnesium level next week. Have him follow a salt and fluid restriction of 50-55 oz. * Telephone Encounter - Shira Shannon LPN - 04/13/2023 12:26 PM EDT Spoke to pt and she stated Cardiology managed this issue already documented in this encounter Plan of Treatment Not on file documented as of this encounter Visit Diagnoses Not on filedocumented in this encounter Care Teams Ocean Clam Boat Captain Relationship Specialty Start Date End Date Arnie Lund DO PCP - General Internal Medicine 11/11/21 documented as of this encounter
--- OUTSIDE RECORDS SUMMARY | 2025-04-08 10:47 | XMS_ITS | Encounter Summary ---
Author Organization [facility] Address [address] [place] [address] Care Team Providers Care Rock Breaker Name Role Phone Arnie Lund Primary Care Provider [phone] Encounter Details Date Type Department Care Team (Late st Contact Info) Description 03/31/2025 Bamboo flowsheet [facility] [address] [place] [address] Kenny Aldana, PT [address] [place] [address] Social History Tobacco Use Types Packs/Day Years [...] CI PT [address] [place] [address] Roxanne Sánchez, SILK SCREENER 04/11/2025 11:30 AM EDT Treatment [facility] [address] [facility] [address] [place] [address] DarrylRonal, SILK SCREENER 04/14/2025 11:30 AM EDT Treatment [facility] [address] [facility] [address] [place] [address] Ronal Andrews, SILK SCREENER 04/15/2025 8:30 AM EDT Treatment [facility] [address] [facility] [address] [place] [address] Kenny Aldana, PT [address] [facility] [address] [place] [address] 04/17/2025 11:00 AM EDT Treatment [facility] [address] [facility] [address] [place] [address] Darryl Ronal, SILK SCREENER 05/26/2025 10:15 AM EDT Procedure Visit [facility] [address] [place] [address] Kole Batista, DPM [address] [place] [address] documented as of this encounter Visit Diagnoses Not on filedocumented in this encounter Care Teams Rock Breaker Relationship Specialty Start Date End Date Arnie Lund DO [address] [facility] [place] [address] PCP - General Internal Medicine 02/18/25 documented as of this encounter
--- OUTSIDE RECORDS SUMMARY | 2025-04-08 10:47 | XMS_ITS | Encounter Summary ---
Author Organization [facility] Address [address] [place] [address] Care Team Providers Care Charging Operator Name Role Phone Arnie Lund Primary Care Provider Encounter Details Date Type Department Care Team (Late st Contact Info) Description 03/26/2025 Bamboo flowsheet [facility] [address] [place] [address] Sherif Almodovar PTA Social History Tobacco Use Types Packs/Day [...] CI PT [address] [place] [address] Roxanne Sánchez PTA 04/11/2025 11:30 AM EDT Treatment [facility] [address] [facility] [address] [place] [address] Darryl Ronal, FISHING GEAR MECHANIC 04/14/2025 11:30 AM EDT Treatment [facility] [address] [facility] [address] [place] [address] JamalRonal chand, FISHING GEAR MECHANIC 04/15/2025 8:30 AM EDT Treatment [facility] [address] [facility] [address] [place] [address] Kenny Aldana, PT [address] [facility] [address] [place] [address] 04/17/2025 11:00 AM EDT Treatment [facility] [address] [facility] [address] [place] [address] Parag Andrewsall, FISHING GEAR MECHANIC 05/26/2025 10:15 AM EDT Procedure Visit [facility] [address] [facility] [place] [address] Kole Batista, DPM [address] [place], [place] [address] documented as of this encounter Visit Diagnoses Not on filedocumented in this encounter Care Teams Charging Operator Relationship Specialty Start Date End Date Arnie Lund DO [address] [facility] [place] [address] PCP - General Internal Medicine 02/18/25 documented as of this encounter
--- OUTSIDE RECORDS SUMMARY | 2025-04-08 10:47 | XMS_ITS | Encounter Summary ---
Author Organization [facility] Address [address] [place] [address] Care Team Providers Care Water Purifier Name Role Phone Arnie Lund DO Primary Care Provider [phone] Arnie Lund DO Primary Care Provider [phone] Encounter Details Date Type Department Care Team (Late st Contact Info) Description 08/30/2023 External Result Encounter [facility] External Department Unsolicited Leigha Nelson, WEIGHER AND GRADER [address] [place] [address] Social History Tobacco Use Types Packs/Day Years Used Date Smoking Tobacco: Never Assessed Sex and Gender Information Value Date Recorded [...] CI PT [address] [place] [address] Roxanne Sánchez, PRODUCT DEVELOPMENT DIRECTOR 04/11/2025 11:30 AM EDT Treatment [facility] [address] [place] [address] Ronal Andrews, PRODUCT DEVELOPMENT DIRECTOR 04/14/2025 11:30 AM EDT Treatment [facility] PT [address] [place] [address] Ronal Andrews, PRODUCT DEVELOPMENT DIRECTOR 04/15/2025 8:30 AM EDT Treatment [facility] CI PT [address] [place] [address] Emilyollie Kenny Cristal, PT [address] [place] [address] 04/17/2025 11:00 AM EDT Treatment [facility] CI PT [address] [place] [address] Ronal Andrews, PRODUCT DEVELOPMENT DIRECTOR 05/26/2025 10:15 AM EDT Procedure Visit [facility] [address] [place] [address] Kole Batista, DPM [address] [place], [place] [address] documented as of this encounter Procedures Procedure Name Priority Date/Time Associated Diagnosis Comments CT ABDOMEN PELVIS WO IV CONTRAST 08/30/2023 1:04 PM EST documented in this encounter Results * CT abdomen pelvis wo IV contrast (08/30/2023 1:04 PM EST) Anatomical Region Laterality Modality Body, Pelvis, Abdomen Computed T omography 08/30/2023 1:04 PM EST Impressions 09/01/2023 12:10 PM EST No significant change in chest, abdomen or pelvis findings compared to the prior study from 02/28/2023. Impression dictated by: Sotero Scott Jr., D.O.08/30/2023 1:10 PM Dictation Location: [place] [address] Transcribed By: PWS 08/30/23 1310 Dictated By: Soetro Scott Jr, DO 08/30/23 1304 Signed By: <Electronically signed by Sotero Scott Jr, DO in OV> 08/30/23 1310 Narrative 09/01/2023 12:10 PM EST [facility] Main [address] [address] [address] Scan Report Signed Patient: Nas Alamo MR#: [id number] 24 : 1940 Acct:[id number] Age/Sex: 83 / M ADM Date: 08/30/23 Loc: XT Room: Type: [facility] RCR Attending Dr: Chivo Keller II DO Copies to: Leigha Rocha EDWARD Nelson II, DO Ordering Provider: Leigha Nelson APRN Date of Service: 08/30/23 CT/CT chest wo con: surveillance ([id number]) CT/CT abdomen pelvis wo con: surveillance CT [...] abnormality.[ Pelvis:[Urinary bladder is grossly unremarkable. Prostatomegaly. Peritoneum/Retroperitoneum:No free air, free fluid or lymphadenopathy.[ Abd wall/Bones:Abdominal wall demonstrates no acute findings. Osseous structures demonstrate degenerative change.[ CT/CT chest wo con Procedure Note Radiology, Radiologist, - 09/01/2023 [facility] Main [place] [address] [place], [place] [address] CT Scan Report Signed Patient: Nas Alamo DMR#: [id number] 24 : 2Acct:[id number] Age/Sex: 83 / MADM Date: 08/30/23 Loc: Room:Type: [facility] RCR Attending Dr: Chivo Keller II DO Copies to: EDWARD Luke II, DO Ordering Provider: Leigha Nelson APRN Date of Service: 08/30/23 CT/CT chest wo con: surveillance ([id number]) CT/CT abdomen pelvis wo con: surveillance CT [...] Mediastinum:Pacemaker device is in place. Cardiomegaly is noted.Thoracic aorta is normal in caliber. Pulmonary trunk appears nondilated. No pericardial effusion.Calcified mediastinal and left hilar nodes. The esophagus is grossly unremarkable. Lungs:Emphysematous changes. Mild bibasilar atelectasis/scarring. Noconsolidation pneumothorax or pleural effusion. Calcified granulomas. Previously identified 1 cmnodule involving the right upper lobe appears now subsolid in nature but appears unchanged in sizenow seen on series 5 image 75. No new or enlarging suspicious pulmonary nodule is seen. Soft tissues/Bones: Soft tissues demonstrate no acute findings. Osseousstructures demonstrate degenerative change. CT abdomen and pelvis: Organs:Suboptimal evaluation due to lack of IV contrast. Livergallbladder spleen pancreas and left adrenal gland all appear unremarkable other than a punctate splenicgranuloma noted.[Small right adrenal adenoma. Kidneys demonstrate no evidence of stone orhydronephrosis. Abdominal aorta appears normal in caliber. GI: Stomach is grossly unremarkable. Small bowel appears nondilated.Right hemicolectomy. No acute colonic abnormality.[ Pelvis:[Urinary bladder is grossly unremarkable. Prostatomegaly. Peritoneum/Retroperitoneum:No free air, free fluid or lymphadenopathy.[ Abd wall/Bones:Abdominal wall demonstrates no acute findings. Osseousstructures demonstrate degenerative change.[ CT/CT chest wo con IMPRESSION: No significant change in chest, abdomen or pelvis findings compared tothe prior study from 02/28/2023. Impression dictated by: Sotero Scott Jr., D.OKeo08/30/2023 1:10 PM Dictation Location: [place] [address] Transcribed By: [facility] 08/30/23 1310 Dictated By: Sotero Scott Jr, DO 08/30/23 1304 Signed By: <Electronically signed by Sotero Scott Jr, DO inOV> 08/30/23 1310 Leigha Nelson WEIGHER AND GRADER IMG CT PROCEDURES Final Resul t documented in this encounter Visit Diagnoses Not on filedocumented in this encounter Care Teams Water Purifier Relationship Specialty Start Date End Date Arnie Lund DO PCP - General Internal Medicine 08/24/23 02/17/25 Arnie Lund DO [address] [place] [address] PCP - General Internal Medicine 02/18/25 documented as of this encounter
--- OUTSIDE RECORDS SUMMARY | 2025-04-08 10:47 | XMS_ITS | Encounter Summary ---
Author Organization [facility] Address [address] [place] [address] Care Team Providers Care Retail Department Reset Name Role Phone Arnie Lund Primary Care Provider Encounter Details Date Type Department Care Team (Late st Contact Info) Description 04/02/2025 Bamboo flowsheet [facility] [address] [place] [address] Ronal Andrews PTA Social History Tobacco Use [...] CI PT [address] [place] [address] Roxanne Sánchez PTA 04/11/2025 11:30 AM EDT Treatment [facility] CI PT [address] [facility] [address] [place] [address] Darryl Ronal, HEATSET WINDER OPERATOR 04/14/2025 11:30 AM EDT Treatment [facility] CI PT [address] [facility] [address] [place] [address] JamalRonal chand, HEATSET WINDER OPERATOR 04/15/2025 8:30 AM EDT Treatment [facility] CI PT [address] [facility] [address] [place] [address] Kenny Aldana, PT [address] [facility] [address] [place] [address] 04/17/2025 11:00 AM EDT Treatment [facility] CI PT [address] [facility] [address] [place] [address] Parag Andrewsall, HEATSET WINDER OPERATOR 05/26/2025 10:15 AM EDT Procedure Visit [facility] [address] [place] [address] Kole Batista, DPM [address] [place], [place] [address] documented as of this encounter Visit Diagnoses Not on filedocumented in this encounter Care Teams Retail Department Reset Relationship Specialty Start Date End Date Arnie Lund DO [address] [facility] [place] [address] PCP - General Internal Medicine 02/18/25 documented as of this encounter
--- OUTSIDE RECORDS SUMMARY | 2025-04-08 10:47 | XMS_ITS | Encounter Summary ---
Author Organization [facility] Address [address] [place] [address] Care Team Providers Care Lamp Cleaner Street Light Name Role Phone KevonArnie Bel HERRMANN Primary Care Provider [phone] Encounter Details Date Type Department Care Team (Latest Contact Info) Description 04/07/2025 Travel Social History Tobacco Use Types Packs/Day [...] [address] [facility] [address] [place] [address] Roxanne Sánchez, SHOTGUN SHELL ASSEMBLY MACHINE ADJUSTER 04/11/2025 11:30 AM EDT Treatment [facility] CI PT [address] [facility] [address] [place] [address] Ronal Andrews, SHOTGUN SHELL ASSEMBLY MACHINE ADJUSTER 04/14/2025 11:30 AM EDT Treatment [facility] CI PT [address] [facility] [address] [place] [address] Ronal Andrews, SHOTGUN SHELL ASSEMBLY MACHINE ADJUSTER 04/15/2025 8:30 AM EDT Treatment [facility] CI PT [address] [facility] [address] [place] [address] Kenny Aldana, PT [address] [facility] [address] [place] [address] 04/17/2025 11:00 AM EDT Treatment [facility] CI PT [address] [facility] [address] [place] [address] Ronal Andrews, SHOTGUN SHELL ASSEMBLY MACHINE ADJUSTER 05/26/2025 10:15 AM EDT Procedure Visit [facility] [address] [place] [address] Kole Batista, DPM [address] [place], [place] [address] documented as of this encounter Visit Diagnoses Not on filedocumented in this encounter Care Teams Lamp Cleaner Street Light Relationship Specialty Start Date End Date Arnie Lund DO [address] [facility] [place] [address] PCP - General Internal Medicine 02/18/25 documented as of this encounter
--- OUTSIDE RECORDS SUMMARY | 2025-04-08 10:47 | XMS_ITS | Encounter Summary ---
Author Organization [facility] Address [address] [place] [address] Care Team Providers Care Housekeeping Attendant Name Role Phone Arnie Lund Primary Care Provider [phone] Encounter Details Date Type Department Care Team (Late st Contact Info) Description 04/07/2025 Bamboo flowsheet [facility] PT [address] [place] [address] Roxanne Sánchez PTA Social History Tobacco Use Types Packs/Day [...] CI PT [address] [place] [address] Roxanne Sánchez PTA 04/11/2025 11:30 AM EDT Treatment [facility] CI PT [address] [facility] [address] [place] [address] Darryl Ronal, TIE SAWYER 04/14/2025 11:30 AM EDT Treatment [facility] CI PT [address] [facility] [address] [place] [address] JamalRonal chand, TIE SAWYER 04/15/2025 8:30 AM EDT Treatment [facility] CI PT [address] [facility] [address] [place] [address] Kenny Aldana, PT [address] [facility] [address] [place] [address] 04/17/2025 11:00 AM EDT Treatment [facility] CI PT [address] [facility] [address] [place] [address] Ronal Andrews, TIE SAWYER 05/26/2025 10:15 AM EDT Procedure Visit [facility] [address] [place] [address] Kole Batista, DPM [address] [place], [place] [address] documented as of this encounter Visit Diagnoses Not on filedocumented in this encounter Care Teams Housekeeping Attendant Relationship Specialty Start Date End Date Arnie Lund DO [address] [facility] [place] [address] PCP - General Internal Medicine 02/18/25 documented as of this encounter
--- OUTSIDE RECORDS SUMMARY | 2025-04-08 10:47 | XMS_ITS | Encounter Summary ---
Author Organization [facility] Address [address] [place] [address] Care Team Providers Care Residential Pest Control Technician Name Role Phone Arnie Lund DO Primary Care Provider Encounter Details Date Type Department Care Team (Late st Contact Info) Description 02/20/2025 Orders Only [facility] [address] [place] [address] Mariusz Montoya MD [address] [place] [address] Social History Tobacco Use Types Packs/Day Years Used Date Smoking Tobacco: Former Cigarettes Q uit: 1982 Smokeless Tobacco: Never Alcohol Use Standard Drinks/Week Comments Yes 0 (1 standard drink = 0.6 oz pur e alcohol) OCCASIONAL PHQ-2 Answer Date Recorded Patient Health Questionnaire-2 Score 0 04/25/2023 [place] Safety & Environment Answer Date Rec orded [...] Description 04/14/2025 2:45 PM EDT Office Visit [facility] [address] [place] [address] Adan Ortiz MD [address] [facility] [address] [facility] [place] [address] documented as of this encounter Procedures Procedure Name Priority Date/Time Associated Diagnosis Comments CARDIAC DEVICE CHECK - REMOTE - ICD Routine 02/20/2025 12:00 AM EDT documented in this encounter Results * Cardiac device check - Remote ICD (02/20/2025 12:00 AM EDT) Anatomical Region Laterality Modality Other 02/20/2025 us Mariusz Montoya MD CV IMPLANTABLE CARDIAC DEVICE TX OCEDURES Final Result documented in this encounter Visit Diagnoses Not on filedocumented in this encounter Care Teams Residential Pest Control Technician Relationship Specialty Start Date End Date Arnie Lund DO [address] [facility] [place] [address] [address] [place] [address] PCP - General 06/07/22 documented as of this encounter
--- OUTSIDE RECORDS SUMMARY | 2025-04-08 10:47 | XMS_ITS | Encounter Summary ---
Author Organization [facility] Address [id number] [address] [place] [address] Care Team Providers Care Animal Trainer Supervisor Name Role Phone Kevon Arnie Bel HERRMANN Primary Care Provider [phone] Encounter Details Date Type Department Care Team (Late st Contact Info) Description 01/10/2025 Telephone PHN [facility] [address] [facility] [address] [place] [address] Connie Dunham CMA Social History Tobacco Use Types Packs/Day Years [...] encounter Miscellaneous Notes * Telephone Encounter - Connie Dunham CMA - 01/10/2025 11:24 AM EDT Recently had hip surgery states that his Advised patient to make sooner appt. With kidney dr due to levels elevated. * Telephone Encounter - Michelle Bejarano LPN - 01/10/2025 11:[address]? Are they faxing his labs for our review? documented in this encounter Plan of Treatment Not on file documented as of this encounter Visit Diagnoses Not on filedocumented in this encounter Care Teams Animal Trainer Supervisor Relationship Specialty Start Date End Date Arnie Lund DO PCP - General Internal Medicine 11/11/21 documented as of this encounter
--- OUTSIDE RECORDS SUMMARY | 2025-04-08 10:47 | XMS_ITS | Encounter Summary ---
Author Organization [facility] Address [address] [place] [address] Care Team Providers Care Assistant Toddler Teacher Name Role Phone Arnie Lund DO Primary Care Provider Arnie Lund DO Primary Care Provider [phone] Encounter Details Date Type Department Care Team (Late st Contact Info) Description 02/22/2024 External Result Encounter [facility] External Department Unsolicited Chivo Keller, DO [address] [facility] [place] [address] Social History Tobacco Use Types Packs/Day Years [...] CI PT [address] [place] [address] Roxanne Sánchez, CONDUIT BENDER 04/11/2025 11:30 AM EDT Treatment [facility] PT [address] [place] [address] Ronal Andrews, CONDUIT BENDER 04/14/2025 11:30 AM EDT Treatment [facility] PT [address] [place] [address] [phone] Ronal Andrews, CONDUIT BENDER 04/15/2025 8:30 AM EDT Treatment [facility] CI PT [address] [place] [address] Kenny Aldana, PT [address] [place] [address] 04/17/2025 11:00 AM EDT Treatment [facility] CI PT [address] [place] [address] Ronal Andrews, CONDUIT BENDER 05/26/2025 10:15 AM EDT Procedure Visit [facility] [address] [place] [address] Kole Batista, DPM [address] [place], [place] [address] documented as of this encounter Procedures Procedure Name Priority Date/Time Associated Diagnosis Comments CT ABDOMEN PELVIS WO IV CONTRAST 02/22/2024 1:51 PM EDT documented in this encounter Results * CT abdomen pelvis wo IV contrast (02/22/2024 1:51 PM EDT) Anatomical Region Laterality Modality Body, Pelvis, Abdomen Computed T omography 02/22/2024 1:51 PM EDT Impressions 02/22/2024 2:05 PM EDT Granulomatous changes are noted in the mediastinum, marlena, and lung parenchyma bilaterally. No evidence of pulmonary metastatic disease. There is a 12 mm nodule in the right adrenal gland which is unchanged. 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 No intra-abdominal metastatic disease. Impression dictated by: Gerard Bernard M.D.02/22/2024 2:03 PM Dictation Location: [place] [address] Transcribed By: [facility] 02/22/24 1403 Dictated By: Gerard Bernard II, MD 02/22/24 1351 Signed By: <Electronically signed by Gerard Bernard II, MD in OV> 02/22/24 1403 Narrative 02/22/2024 2:05 PM EDT [facility] Main [place] [address] [place] [address] CT Scan Report Signed Patient: Nas Alamo MR#: [id number] 24 : 1940 Acct:[id number] Age/Sex: 83 / M ADM Date: 02/22/24 Loc: Room: Type: [facility] RCR Attending Dr: Chivo Keller II, DO Copies to: Chivo Keller II, DO Ordering Provider: Chivo Keller II, DO Date of Service: 02/22/24 CT/CT abdomen pelvis wo con: surveilance ([id number]) CT/CT chest wo con: surveilance CT chest [...] suggesting synovial osteochondromatosis. CT/CT chest wo con Procedure Note Radiology, Radiologist, - 02/22/2024 [facility] Main [place] [address] [place] [address] CT Scan Report Signed Patient: Nas Alamo DMR#: [id number] 24 : 2Acct:[id number] Age/Sex: 83 / MADM Date: 02/22/24 Loc: Room:Type: [facility] Attending Dr: Chivo Keller II DO Copies to: Chivo Keller II, DO Ordering Provider: Chivo Keller II, DO Date of Service: 02/22/24 CT/CT abdomen pelvis wo con: surveilance ([id number]) CT/CT chest wo con: surveilance CT chest wo con, CT abdomen pelvis wo con 02/22/2024 8:23 AM SIGN AND SYMPTOMS: Restaging colon cancer TECHNIQUE: Multidetector CT axial slices of the chest, abdomen and pelviswere obtainedwith IV contrast. Multiplanar reformats were performed and viewed on a separateworkstation and reviewed to further define anatomy and possible pathology. CT was performed with oneor more of the following dose reduction techniques: Automated exposure control, adjustment of themA and/or kV according to patient size, or use of iterative reconstruction technique. COMPARISON: 08/30/2020. FINDINGS: Lower neck: Thyroid gland within normal limits, no supraclavicleadenopathy. Vessels: Atherosclerotic changes are noted in the thoracic aorta andorigins of the great vessels, and coronary arteries. A laser noted in the superior vena cava and heart.. Mediastinum and Marlena: There is a calcified mediastinal lymph node.Calcified hilar lymph nodes are present bilaterally. Heart: Normal size. No pericardial effusion. Airways: Within normal limits Lungs: Mild emphysematous changes are noted in the lung apices. There is a1 cm focus of groundglass attenuation anteriorly in the base of the right upper lobe which isunchanged. There is an 8 mm calcified granuloma in the right lower lobe posteriorly. There is scarringor atelectasis in the lung bases. There is a pleural-based 6 mm calcified nodule in the leftlung base. Pleura: Within normal limits. Chest Wall: Within normal limits. Abdomen: Liver: within normal limits. Bile Ducts: Normal caliber. Gallbladder: No calcified gallstones. Normal caliber wall. Pancreas: within normal limits. Spleen: within normal limits. Adrenals: There is a 12 mm nodule in the right adrenal gland which isunchanged. Kidneys: There are a few tiny hyperdense presumably hemorrhagic cyst inthe kidneys which are unchanged. Pelvis: Reproductive Organs: No pelvic masses. Ureters: within normal limits. Bladder: within normal limits. Bowel: There is surgical anastomosis in the hepatic flexure consistentwith previous right hemicolectomy. There is no bowel obstruction. Mesenteric Lymph Nodes: No enlarged mesenteric lymph nodes. Peritoneum: No ascites or free air, no fluid collection. Vessels: Atherosclerotic changes noted in the abdominal aorta and itsbranches.. Retroperitoneum: within normal limits. Abdominal Wall: within normal limits. Bones: Degenerative changes are noted in the thoracolumbar spine,symphysis pubis, hips, and sacroiliac joints. 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 CT/CT chest wo con IMPRESSION: Granulomatous changes are noted in the mediastinum, marlena, and lungparenchyma bilaterally. No evidence of pulmonary metastatic disease. There is a 12 mm nodule in the right adrenal gland which is unchanged. 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 No intra-abdominal metastatic disease. Impression dictated by: Gerard Bernard M.D.02/22/2024 2:03 PM Dictation Location: [place] [address] Transcribed By: [facility] 02/22/24 1403 Dictated By: Gerard Bernard II, MD 02/22/24 1351 Signed By: <Electronically signed by Gerard Bernard II, MD inOV> 02/22/24 1403 Chivo Keller DO IMG CT PROCEDURES Final R esult documented in this encounter Visit Diagnoses Not on filedocumented in this encounter Care Teams Assistant Toddler Teacher Relationship Specialty Start Date End Date Arnie Lund DO PCP - General Internal Medicine 08/24/23 02/17/25 Arnie Lund DO [address] [place] [address] PCP - General Internal Medicine 02/18/25 documented as of this encounter
--- OUTSIDE RECORDS SUMMARY | 2025-04-08 10:47 | XMS_ITS | Encounter Summary ---
Author Organization [facility] Address [address] [email or web address] [place] [address] Care Team Providers Care Verifier Name Role Phone KevonArnie Bel HERRMANN Primary Care Provider [phone] Encounter Details Date Type Department Care Team (Latest Contact Info) Description 04/04/2025 Travel Social History Tobacco Use Types Packs/Day [...] Treatment [facility] PT [address] [facility] [address] [place] [address] Roxanne Sánchez, E COMMERCE MANAGER 04/11/2025 11:30 AM EDT Treatment [facility] CI PT [address] [facility] [address] [place] [address] Ronal Andrews, E COMMERCE MANAGER 04/14/2025 11:30 AM EDT Treatment [facility] CI PT [address] [facility] [address] [place] [address] Ronal Andrews, E COMMERCE MANAGER 04/15/2025 8:30 AM EDT Treatment [facility] CI PT [address] [facility] [address] [place] [address] Kenny Aldana, PT [address] [facility] [address] [place] [address] 04/17/2025 11:00 AM EDT Treatment [facility] CI PT [address] [facility] [address] [place] [address] Ronal Andrews, E COMMERCE MANAGER 05/26/2025 10:15 AM EDT Procedure Visit [facility] [address] [place] [address] Kole Batista, DPM [address] [place], [place] [address] documented as of this encounter Visit Diagnoses Not on filedocumented in this encounter Care Teams Verifier Relationship Specialty Start Date End Date Arnie Lund DO [address] [facility] [place] [address] PCP - General Internal Medicine 02/18/25 documented as of this encounter
--- OUTSIDE RECORDS SUMMARY | 2025-04-08 10:48 | XMS_ITS | Encounter Summary ---
Author Organization [facility] Address [address] [facility] [place] [address] Care Team Providers Care Sanding Machine Operator Name Role Phone Arnie Lund DO Primary Care Provider [phone] Arnie Lund DO Primary Care Provider Encounter Details Date Type Department Care Team (Late st Contact Info) Description 01/23/2023 Abstract [facility] [address] [facility] [place] [address] Marilin Bhardwaj, [facility] [address] [place] [address] Social History Tobacco Use Types Packs/Day Years [...] CI PT [address] [place] [address] Roxanne Sánchez, MULTIPLE EFFECT EVAPORATOR OPERATOR 04/11/2025 11:30 AM EDT Treatment [facility] [address] [place] [address] Ronal Andrews, MULTIPLE EFFECT EVAPORATOR OPERATOR 04/14/2025 11:30 AM EDT Treatment [facility] [address] [facility] [address] [place] [address] Ronal Andrews, MULTIPLE EFFECT EVAPORATOR OPERATOR 04/15/2025 8:30 AM EDT Treatment [facility] [address] [place] [address] Emilyollie Kenny Cristal, PT [address] [facility] [address] [place] [address] 04/17/2025 11:00 AM EDT Treatment [facility] [address] [facility] [address] [place] [address] Ronal Andrews, MULTIPLE EFFECT EVAPORATOR OPERATOR 05/26/2025 10:15 AM EDT Procedure Visit [facility] [address] [place] [address] Kole Batista, DPM [address] [place], [place] [id number] documented as of this encounter Visit Diagnoses Not on filedocumented in this encounter Care Teams Sanding Machine Operator Relationship Specialty Start Date End Date Arnie Lund DO PCP - General Internal Medicine 08/24/23 02/17/25 Arnie Lund DO [address] [facility] [place] [id number] PCP - General Internal Medicine 02/18/25 documented as of this encounter
--- OUTSIDE RECORDS SUMMARY | 2025-04-08 10:48 | XMS_ITS | Encounter Summary ---
Author Organization [facility] Address [address] [facility] [place] [address] Care Team Providers Care Chief Design Engineer Name Role Phone Arnie Lund DO Primary Care Provider [phone] Arnie Lund DO Primary Care Provider [phone] Encounter Details Date Type Department Care Team (Late st Contact Info) Description 01/23/2023 Abstract [facility] [address] [facility] [place] [address] Marilin Bhardwaj, [facility] [address] [place] [address] Social History Tobacco Use Types Packs/Day Years [...] CI PT [address] [place] [address] Roxanne Sánchez, ELECTRONICS COMMODITY MANAGER 04/11/2025 11:30 AM EDT Treatment [facility] [address] [place] [address] Ronal Andrews, ELECTRONICS COMMODITY MANAGER 04/14/2025 11:30 AM EDT Treatment [facility] [address] [facility] [address] [place] [address] Ronal Andrews, ELECTRONICS COMMODITY MANAGER 04/15/2025 8:30 AM EDT Treatment [facility] [address] [place] [address] Emilyollie Kenny Cristal, PT [address] [facility] [address] [place] [address] 04/17/2025 11:00 AM EDT Treatment [facility] [address] [facility] [address] [place] [address] Ronal Andrews, ELECTRONICS COMMODITY MANAGER 05/26/2025 10:15 AM EDT Procedure Visit [facility] [address] [place] [address] Kole Batista, DPM [address] [place], [place] [id number] documented as of this encounter Visit Diagnoses Not on filedocumented in this encounter Care Teams Chief Design Engineer Relationship Specialty Start Date End Date Arnie Lund DO PCP - General Internal Medicine 08/24/23 02/17/25 Arnie Lund DO [address] [place] [facility] [place] [address] PCP - General Internal Medicine 02/18/25 documented as of this encounter
--- OUTSIDE RECORDS SUMMARY | 2025-04-08 10:48 | XMS_ITS | Encounter Summary ---
Author Organization [facility] Address [address] [place] [address] Care Team Providers Care Director Peoplesoft Name Role Phone Arnie Lund DO Primary Care Provider [phone] Arnie Lund DO Primary Care Provider [phone] Encounter Details Date Type Department Care Team (Late st Contact Info) Description 03/07/[address] [facility] [address] [id number] Kalia Sánchez MD [address] [facility] [address] [place] [address] Social History Tobacco Use Types Packs/Day Years [...] CI PT [address] [place] [address] Roxanne Sánchez, MOTION PICTURE CAMERA OPERATOR 04/11/2025 11:30 AM EDT Treatment [facility] [address] [place] [address] Ronal Andrews, MOTION PICTURE CAMERA OPERATOR 04/14/2025 11:30 AM EDT Treatment [facility] [address] [place] [address] Darryl Ronal, MOTION PICTURE CAMERA OPERATOR 04/15/2025 8:30 AM EDT Treatment [facility] [address] [facility] [address] [place] [address] Katya Kenny Cristal, PT [address] [facility] [address] [place] [address] 04/17/2025 11:00 AM EDT Treatment [facility] [address] [facility] [address] [place] [address] Darryl Ronal, MOTION PICTURE CAMERA OPERATOR 05/26/2025 10:15 AM EDT Procedure Visit [facility] [address] [place] [address] Kole Batista, DPM [address] [place], [place] [id number] documented as of this encounter Visit Diagnoses Not on filedocumented in this encounter Care Teams Director Peoplesoft Relationship Specialty Start Date End Date Anrie Lund DO PCP - General Internal Medicine 08/24/23 02/17/25 Arnie Lund DO [address] [place] [address] PCP - General Internal Medicine 02/18/25 documented as of this encounter
--- OUTSIDE RECORDS SUMMARY | 2025-04-08 10:48 | XMS_ITS | Clinical Summary ---
Author Organization [place] Address [address] [facility]. [place] [phone] Phone Care Team Providers Care [employer] Agriculture Teacher Name Role Phone Unavailable Primary Care Provider Unavailabl e Social History Tobacco Use Types Packs/Day Years Used Date Smoking Tobacco: Never Assessed Sex and Gender Information Value Date Recorded Sex Assigned at Not on file Legal Sex Male 9:13 AM EST Gender Identity Not on file Sexual Orientation Not on file Plan of Treatment Not on file
--- OUTSIDE RECORDS SUMMARY | 2025-04-08 10:48 | XMS_ITS | Clinical Summary ---
Author Organization [facility] Address [address] [place] [address] Care Team Providers Care Ash Collector Name Role Phone KevonArnie Sean HERRMANN Primary Care Provider [phone] Allergies No known active allergies Medications Fluticasone-Ume clidin-Vilant (Trelegy Ellipta) 200-62.5-25 MCG/ACT aerosol powder Inhale Active ezetimibe (Zetia) 10 MG tablet Take 10 mg by mouth Daily Active apixaban (Eliquis) 2.5 MG tablet Take 2.5 mg by mouth in the morning and 2.5 mg before bedtime. Active bumetanide (Bumex) 2 MG tablet Take 2 mg by mouth Daily Active potassium chloride CR (Klor-Con M10) 10 MEQ ER tablet Take 10 mEq by mouth Daily Do not crush or chew. Active amLODIPine (Norvasc) 10 MG tablet Take 10 mg by mouth Daily Active hydrALAZINE (Apresoline) 100 MG tablet Take 100 mg by mouth in the morning and 100 mg in the evening and 100 mg before bedtime. Active isosorbide dinitrate (Isordil) 10 MG tablet Take 10 mg by mouth in the morning and 10 mg in the evening and 10 mg before bedtime. Active methIMAzole (Tapazole) 10 MG tablet Take 10 mg by mouth in the morning and 10 mg in the evening and 10 mg before bedtime. Active metoprolol succinate XL (Toprol-XL) 100 MG 24 hr tablet Take 100 mg by mouth Daily Do not crush or chew. Active allopurinol (Zyloprim) 100 MG tablet Take 100 mg by mouth Daily Active amiodarone (Pacerone) 200 MG tablet Take 200 mg by mouth in the morning. 09/16/2024 Active furosemide (Lasix) 80 MG tablet 12/21/2024 Active Active Problems Problem Noted Date Diagnosed Date MOLINA (obstructive sleep apnea) 07/08/2024 Hypersomnia 07/08/2024 Primary insomnia 07/08/2024 Encounters Date Type Department Care Team Description 04/07/2025 2:30 PM EDT Treatment [facility] [address] [place] [address] Roxanne Sánchez, RN ANESTHETIST Greater trochanteric bursitis of left hip (Primary Dx); History of total hip arthroplasty, right; Left hip pain 04/07/2025 Bamboo flowsheet [facility] [address] [place] [address] Roxanne Sánchez, RN ANESTHETIST 04/07/2025 Travel 04/04/2025 11:30 AM EDT Treatment [facility] [address] [place] [address] Ronal Andrews, RN ANESTHETIST Greater trochanteric bursitis of left hip (Primary Dx); History of total hip arthroplasty, right; Left hip pain 04/04/2025 Bamboo flowsheet [facility] [address] [place] [address] Ronal Andrews, RN ANESTHETIST 04/04/2025 Travel 04/02/2025 12:00 PM EDT Treatment [facility] [address] [place] [address] Ronal Andrews, RN ANESTHETIST Greater trochanteric bursitis of left hip (Primary Dx); History of total hip arthroplasty, right; Left hip pain 04/02/2025 Bamboo flowsheet [facility] [address] [place] [address] Ronal Andrews, RN ANESTHETIST 04/02/2025 Travel 03/31/2025 1:00 PM EDT Treatment [facility] [address] [place] [address] Kenny Aldana, PT Greater trochanteric bursitis of left hip (Primary Dx); History of total hip arthroplasty, right; Left hip pain 03/31/2025 Bamboo flowsheet [facility] [address] [facility] [address] [place] [address] Kenny Aldana T, PT 03/31/2025 Travel 03/28/2025 11:30 AM EDT Treatment [facility] [address] [facility] [address] [place] [address] Ronal Andrews, RN ANESTHETIST Greater trochanteric bursitis of left hip (Primary Dx); History of total hip arthroplasty, right; Left hip pain 03/28/2025 Bamboo flowsheet [facility] [address] [facility] [address] [place] [address] Ronal Andrews, RN ANESTHETIST 03/28/2025 Travel 03/26/2025 12:00 PM EDT Treatment [facility] [address] [facility] [address] [place] [address] Sherif Almodovar, RN ANESTHETIST Greater trochanteric bursitis of left hip (Primary Dx); History of total hip arthroplasty, right; Left hip pain 03/26/2025 Bamboo flowsheet [facility] [address] [facility] [address] [place] [address] Sherif Almodovar, RN ANESTHETIST 03/26/2025 Travel 03/24/2025 2:30 PM EDT Treatment [facility] [address] [facility] [address] [place] [address] Roxanne Sánchez, RN ANESTHETIST Greater trochanteric bursitis of left hip (Primary Dx); History of total hip arthroplasty, right; Left hip pain 03/24/2025 Bamboo flowsheet [facility] [address] [facility] [address] [place] [address] Roxanne Sánchez, RN ANESTHETIST 03/24/2025 Travel 03/21/2025 11:30 AM EDT Treatment [facility] [address] [facility] [address] [place] [address] Ronal Andrews, RN ANESTHETIST Greater trochanteric bursitis of left hip (Primary Dx); History of total hip arthroplasty, right; Left hip pain 03/21/2025 Bamboo flowsheet [facility] [address] [facility] [address] [place] [address] Ronal Andrews, RN ANESTHETIST 03/21/2025 Travel 03/20/2025 Plan of Care Documentation [facility] [address] [facility] [address] [place] [address] 03/19/2025 3:00 PM EDT Evaluation [facility] [address] [facility] [address] [place] [address] Kenny Aldana, PT Greater trochanteric bursitis of left hip (Primary Dx); History of total hip arthroplasty, right; Left hip pain 03/19/2025 Bamboo flowsheet [facility] [address] [facility] [address] [place] [address] Kenny Aldana, PT 03/19/2025 Travel 02/28/2025 External Result Encounter NOMS External Department Unsolicited Chivo Keller, DO 02/24/2025 External Result Encounter NOMS External Department Unsolicited Chivo Keller, DO 02/24/2025 External Result Encounter NOMS External Department Unsolicited Chivo Keller, DO 02/24/2025 External Result Encounter NOMS External Department Unsolicited Chivo Keller, DO 02/24/2025 External Result Encounter NOMS External Department Unsolicited Chivo Keller, DO 02/21/2025 10:45 AM EDT Office Visit [facility] [address] [place] [address] Kole Batista, DPM Diabetic polyneuropathy associated with type 2 diabetes mellitus (HCC) (Primary Dx); Onychodystrophy; Onychomycosis 02/21/2025 Bamboo flowsheet [facility] [address] [place] [address] Kole Batista, HAYDEN 02/21/2025 Travel 02/20/2025 Travel from Last 3 Months Immunizations Immunization Administration Dates Next Due Pneumococcal Conjugate PCV 13 07/16/2013 Family History Relation Name Status Comments Father Mother Social [...] PM EDT Sexual Orientation Not on file Last Filed Vital Signs Vital Sign Reading Time Taken Comments Blood Pressure 136/74 07/09/2024 10:33 AM EDT Pulse 70 07/09/2024 10:33 AM EDT Temperature - - Respiratory Rate - - Oxygen Saturation 93% 07/09/2024 10:33 AM EDT Inhaled Oxygen Concentration - - Weight 88.9 kg (196 lb) 02/21/2025 10:46 AM EDT Height 180.3 cm (5' 11 ) 02/21/2025 10:46 AM EDT Body Mass Index 27.34 02/21/2025 10:46 AM EDT Plan of Treatment Upcoming Encounters Date Type Department Care Team (Late st Contact Info) Description 04/09/2025 1:00 PM EDT Treatment [facility] [address] [facility] [address] [place] [address] Roxanne Sánchez, RN ANESTHETIST 04/11/2025 11:30 AM EDT Treatment [facility] [address] [facility] [address] [place] [address] Ronal Andrews, RN ANESTHETIST 04/14/2025 11:30 AM EDT Treatment [facility] [address] [facility] [address] [place] [address] Ronal Andrews, RN ANESTHETIST 04/15/2025 8:30 AM EDT Treatment [facility] [address] [place] [address] Kenny Aldana, PT [address] [place] [address] 04/17/2025 11:00 AM EDT Treatment [facility] [address] [place] [address] Ronal Andrews, RN ANESTHETIST 05/26/2025 10:15 AM EDT Procedure Visit [facility] [address] [place] [address] Kole Batista, DPM [address] [place], [place] [address] Health Maintenance Due Date Last Done Comments Pneumococcal Vaccine: 65+ Ye ars (2 of 2 - PPSV23) 07/16/2014 07/16/2013 Influenza Vaccine Completed 07/15/2024, , 07/04/2022, Additional history exists Procedures Procedure Name Priority Date/Time Associated Diagnosis Comments CBC WITH AUTO DIFFERENTIAL Routine 02/28/2025 1:[address] ABDOMEN PELVIS WO IV CONTRAST 02/24/2025 11:25 AM EDT ERYTHROPOETIN (EPO), SERUM Routine 02/24/2025 9:46 AM EDT CARCINOEMBRYONIC ANTIGEN Routine 025 9:46 AM EDT VIT. B12/FOLATE PROFILE STAT 02/25/20 9:46 AM EDT FERRITIN STAT 02/24/2025 9:46 AM EDT IRON AND TOTAL IRON BINDING CAPACITY STAT 02/24/2025 9:46 AM EDT COMPREHENSIVE METABOLIC PANEL STAT 02/24/2025 9:46 AM EDT from Last 3 Months Results * (ABNORMAL) CBC auto differential (02/28/2025 1:58 PM EDT) WBC 7.0 4.1 - 10.5 10*3/uL 02/28/2025 2:50 PM EDT [facility] UNCORRECTED WHITE BLOOD COUNT 7.0 4.1 - 10.5 10*3/uL 02/28/2025 2:50 PM EDT [facility] RBC 3.55(L) 3.90 - 5.60 10*6/uL 02/28/2025 2:50 PM EDT [facility] HEMOGLOBIN 11.2(L) 13.0 - 17.0 g/dL 02/28/2025 2:50 PM EDT [facility] HEMATOCRIT 33.5(L) 38.8 - 50.0 % 02/28/2025 2:50 PM EDT [facility] MCV 94.3 83.5 - 101 fL 02/28/2025 2:50 PM EDT [facility] MCH 31.6 27.5 - 35.2 pg 02/28/2025 2:50 PM EDT [facility] MCHC 33.5 32.5 - 35.6 g/dL 02/28/2025 2:50 PM EDT [facility] RED CELL DISTRIBUTION WIDTH, RDW 15.5(H) 12.0 - 14.8 % 02/28/2025 2:50 PM EDT [facility] PLATELET COUNT 232 150 - 450 10*3/uL 02/28/2025 2:50 PM EDT [facility] MEAN PLATELET VOLUME, MPV 7.2 6.6 - 10.1 fL 02/28/2025 2:50 PM EDT [facility] NEUTROPHILS, % 76.9 . % 02/28/2025 2:50 PM EDT [facility] LYMPHOCYTES, % 15.1 . % 02/28/2025 2:50 PM EDT [facility] MONOCYTE/MACROPHA GE, % 6.9 . % 02/28/2025 2:50 PM EDT [facility] EOSINOPHILS, % 0.9 . % 02/28/2025 2:50 PM EDT [facility] BASOPHILS, % 0.2 . % 02/28/2025 2:50 PM EDT [facility] NRBC 0.0 0 - 0.5 /100{WBC} 02/28/2025 2:50 PM EDT [facility] NEUTROPHILS 5.4 1.8 - 7.7 10*3/uL 02/28/2025 2:50 PM EDT [facility] LYMPHOCYTES 1.1 1.00 - 4.8 10*3/uL 02/28/2025 2:50 PM EDT [facility] MONOCYTES 0.5 0.0 - 0.8 10*3/uL 02/28/2025 2:50 PM EDT [facility] EOSINOPHILS 0.1 0.0 - 0.45 10*3/uL 02/28/2025 2:50 PM EDT [facility] BASOPHILS 0.0 0.0 - 0.2 10*3/uL 02/28/2025 2:50 PM EDT [facility] Blood (Blood) 02/28/2025 1:5 8 PM EDT 02/28/2025 1:58 PM EDT Chivo Keller DO LAB BLOOD ORDERABLES Radha l Result Performing Organization Address [facility]/State/[facility] Co de Phone Number [facility] [address] [place] [address], [facility] [address] [place] [address] * CT abdomen pelvis wo IV contrast (02/24/2025 11:25 AM EDT) Anatomical Region Laterality Modality Body, Pelvis, Abdomen Computed T omography 02/24/2025 11:2 5 AM EDT Impressions 02/24/2025 11:[address] evidence of progression disease seen within the chest, abdomen or pelvis. Impression dictated by: Sotero Scott Jr., D.O. 02/24/2025 11:32 AM Dictation Location: [id number] Transcribed By: PWS 02/24/25 1132 Dictated By: Sotero Scott Jr, DO 02/24/25 1125 Signed By: <Electronically signed by Sotero Scott Jr, DO in OV> 02/24/25 1132 Narrative 02/24/2025 11:34 AM EDT [facility] Main [place] [address] [place] [address] CT Scan Report Signed Patient: Nas Alamo MR#: [id number] [birth year] : 1940 Acct:[id number] Age/Sex: 84 / M ADM Date: 02/24/25 Loc: Room: Type: [facility] RCR Attending Dr: Chivo Keller II, DO Copies to: Chivo Keller II, DO Ordering Provider: Chivo Keller II, DO Date of Service: 02/24/25 CT/CT chest wo con: D50.9 - Iron deficiency anemia, unspecified ([id number]) CT/CT abdomen pelvis wo con: D50.9 - [...] Note Sotero Scott Jr., DO - 02/24/2025 [facility] Main [place] [address] [place] [address] CT Scan Report Signed Patient: Nas Alamo DMR#: [id number] [birth year] : 1940cct:[id number] Age/Sex: 84 / MADM Date: 02/24/25 Loc: Room:Type: [facility] RCR Attending Dr: Chivo Keller II DO Copies to: Chivo Keller II, DO Ordering Provider: Chivo Keller II, DO Date of Service: 02/24/25 CT/CT chest wo con: D50.9 - Iron deficiencyanemia, unspecified ([id number]) CT/CT abdomen pelvis wo con: D50.9 - [...] Jr., D.O. 02/24/2025 11:32 AM Dictation Location: [place] [address] Transcribed By: [facility] 02/24/25 1132 Dictated By: Sotero Scott Jr, DO 02/24/25 1125 Signed By: <Electronically signed by Sotero Scott Jr DO inOV> 02/24/25 1132 Chivo Keller DO IMG CT PROCEDURES Final R esult * (ABNORMAL) ERYTHROPOETIN (EPO), SERUM (02/24/2025 9:46 AM EDT) ERYTHROPOETIN (EPO), SERUM 30.4(H) 2.6 - 18.5 m[iU]/mL 02/25/2025 3:08 PM EDT [facility] Comment: Lashell directworxel DxI 800 Immunoassay System Values obtained with different assay methods or kits cannot be used interchangeably. Results cannot be interpreted as absolute evidence of the presence or absence of malignant disease. Performed at: [facility] [employer] [id number] Automation Qa Tester: Nathan Munoz PhD, Phone: [phone] Other Topography unknown / Unknown 02/24/2025 9:46 AM EDT 02/24/2025 9:50 AM EDT Chivo Keller DO LAB BLOOD ORDERABLES Radha l Result Performing Organization Address [facility] Co de Phone Number [place] [phone], * (ABNORMAL) CARCINOEMBRYONIC ANTIGEN (02/24/2025 9:46 AM EDT) CARCINOEMBRYONIC ANTIGEN 3.1(H) 0.0 - 3.0 ng/mL 02/24/2025 10:55 AM EDT [facility] Comment: Serial tumor marker results determined by assays using different manufacturers or methods may not be comparable. [facility] steam boiler fireman and method: LASHELL UNICEL DXI, 2 SITE IMMUNOENZYMATIC S ANDWICH ASSAY. Other Topography unknown / Unknown 02/24/2025 9:46 AM EDT 02/24/2025 9:50 AM EDT Chivo Keller DO LAB BLOOD ORDERABLES Radha l Result Performing Organization Address [facility] Co de Phone Number [address] [address], [facility] [address] [place] [phone] * VIT. B12/FOLATE PROFILE (02/24/2025 9:46 AM EDT) VITAMIN B12 445 180 - 914 pg/mL 02/24/2025 10:45 AM EDT [facility] FOLATE 31.0 >5.9 ng/mL 02/24/2025 11:36 AM EDT [facility] Comment: Folate reference range: >5.9 ng/ml The WHO technical consultation on folate and vitamin b12 deficiencies has determined that folate concentrations less than 4 ng/ml are considered deficient. Other Topography unknown / Unknown 02/24/2025 9:46 AM EDT 02/24/2025 9:[address] [facility] - 02/24/2025 11:36 AM EDT STAT FOR CT Chivo Keller DO LAB BLOOD ORDERABLES Radha l Result Performing Organization Address City/[facility] Co de Phone Number [facility] [address] [place] [address], [facility] [address] [place] [address] * (ABNORMAL) Iron and TIBC (02/24/2025 9:46 AM EDT) IRON 52 50 - 212 ug/dL 02/24/2025 10:21 AM EDT [facility] TOTAL IRON BINDING CAPACITY 267 255 - 450 ug/dL 02/24/2025 10:21 AM EDT [facility] % IRON SATURATION 19.5(L) 20 - 50 % 02/24/2025 10:21 AM EDT [facility] TRANSFERRIN 191(L) 203 - 362 mg/dL 02/24/2025 10:21 AM EDT [facility] Other Topography unknown / Unknown 02/24/2025 9:46 AM EDT 02/24/2025 9:[address] [facility] - 02/24/2025 11:36 AM EDT STAT FOR CT Chivo Keller DO LAB BLOOD ORDERABLES Radha l Result Performing Organization Address City/[facility]/ZIP Co de Phone Number [facility] [address] [facility] [address] [place] [address], [facility] [address] [place] [address] * (ABNORMAL) Ferritin (02/24/2025 9:46 AM EDT) FERRITIN 512.8(H) 23.9 - 336.2 ng/mL 02/24/2025 10:41 AM EDT [facility] Other Topography unknown / Unknown 02/24/2025 9:46 AM EDT 02/24/2025 9:[address] [facility] - 02/24/2025 11:36 AM EDT STAT FOR CT us Chivo Lynda Keller DO LAB BLOOD ORDERABLES Radha kasia Result [facility] [address] [place] [address], [facility] [address] [place] [address] * (ABNORMAL) Comprehensive metabolic panel (02/24/2025 9:46 AM EDT) Glucose 122(H) 70 - 100 mg/dL 02/24/2025 10:21 AM EDT [facility] Comment: Random Glucose Reference Range is dependent on time and content of last meal. Glucose of more than 200 mg/dL in a nonstressed, ambulatory subject supports the diagnosis of Diabetes Mellitus. ADA recommended reference range BUN 43(H) 7 - 25 mg/dL 02/24/2025 10:21 AM EDT [facility] CREATININE 2.17(H) 0.70 - 1.30 mg/dL 02/24/2025 10:21 AM EDT [facility] ESTIMATED GFR 29.659 mL/Min 02/24/2025 10:21 AM EDT [facility] Sodium 143 136 - 145 mmol/L 02/24/2025 10:21 AM EDT [facility] Potassium, Bld 4.0 3.5 - 5.1 mmol/L 02/24/2025 10:21 AM EDT [facility] Chloride 105 98 - 107 mmol/L 02/24/2025 10:21 AM EDT [facility] Carbon Dioxide 31.7(H) 21.0 - 31.0 mmol/L 02/24/2025 10:21 AM EDT [facility] Anion Gap 10.3 6.0 - 15.0 meq/L 02/24[facility]2025 [facility] Calcium 9.3 8.6 - 10.3 mg/dL 02/24/2025 10:21 AM EDT [facility] TOTAL PROTEIN 7.0 6.4 - 8.9 g/dL 02/24/2025 10:21 AM EDT [facility] ALBUMIN LEVEL 4.1 3.5 - 5.7 g/dL 02/24/2025 10:21 AM EDT [facility] GLOBULIN 2.9 g/dL 02/24/2025 10:21 AM EDT [facility] ALBUMIN/GLOBULIN RATIO 1.4 02/24/2025 10:21 AM EDT [facility] BILIRUBIN,TOTAL 0.5 0.3 - 1.0 mg/dL 02/24/2025 10:21 AM EDT [facility] ASPARTATE AMINO TRANSFERASE 17 13 - 39 U/L 02/24/2025 10:21 AM EDT [facility] ALANINE AMINOTRANSFERASE 10 7 - 52 U/L 02/24/2025 10:21 AM EDT [facility] ALKALINE PHOSPHATASE 125(H) 34 - 104 U/L 02/24/2025 10:21 AM EDT [facility] CREATININE CLR [facility] 31.32 02/24/2025 10:21 AM EDT [facility] Other Topography unknown / Unknown 02/24/2025 9:46 AM EDT 02/24/2025 9:50 AM EDT Narrative [facility] - 02/24/2025 11:36 AM EDT STAT FOR CT Chivo Keller DO LAB BLOOD ORDERABLES Radha pedroza Result Performing Organization Address City/State/[facility] Co de Phone Number [facility] [address] [place] [address], [facility] [address] [place] [address] from Last 3 Months Insurance MEDICARE [facility] Care Teams Ash Collector Relationship Specialty Start Date End Date Arnie Lund DO [address] [place] [address] PCP - General Internal Medicine 02/18/25
--- OUTSIDE RECORDS SUMMARY | 2025-04-08 10:48 | XMS_ITS | Encounter Summary ---
Author Organization [facility] Address [address] [facility] [place] [address] Care Team Providers Care Graphic Production Artist Name Role Phone Arnie Lund DO Primary Care Provider [phone] Arnie Lund DO Primary Care Provider [phone] Encounter Details Date Type Department Care Team (Late st Contact Info) Description 02/07/2023 Abstract [facility] [address] [facility] [place] [address] Marilin Bhardwaj, [facility] [address] [place] [address] Social History Tobacco Use Types Packs/Day Years [...] CI PT [address] [place] [address] Roxanne Sánchez, LEAD CARGO MOVER 04/11/2025 11:30 AM EDT Treatment [facility] [address] [place] [address] Ronal Andrews, LEAD CARGO MOVER 04/14/2025 11:30 AM EDT Treatment [facility] [address] [facility] [address] [place] [address] Ronal Andrews, LEAD CARGO MOVER 04/15/2025 8:30 AM EDT Treatment [facility] [address] [place] [address] Emilyollie Kenny Cristal, PT [address] [facility] [address] [place] [address] 04/17/2025 11:00 AM EDT Treatment [facility] [address] [facility] [address] [place] [address] Ronal Andrews, LEAD CARGO MOVER 05/26/2025 10:15 AM EDT Procedure Visit [facility] [address] [place] [address] Kole Batista, DPM [address] [place], [place] [phone] documented as of this encounter Visit Diagnoses Not on filedocumented in this encounter Care Teams Graphic Production Artist Relationship Specialty Start Date End Date Arnie Lund DO PCP - General Internal Medicine 08/24/23 02/17/25 Arnie Lund DO [address] [facility] [place] [address] PCP - General Internal Medicine 02/18/25 documented as of this encounter
--- OUTSIDE RECORDS SUMMARY | 2025-04-08 10:48 | XMS_ITS | Encounter Summary ---
Author Organization [facility] Address [address] [facility] [place] [address] Care Team Providers Care Mash Processing Operator Name Role Phone Arnie Lund DO Primary Care Provider [phone] Arnie Lund DO Primary Care Provider [phone] Encounter Details Date Type Department Care Team (Late st Contact Info) Description 02/07/2023 Abstract [facility] [address] [facility] [place] [address] Marilin Bhardwaj, [facility] [address] [place] [address] Social History Tobacco Use Types Packs/Day Years [...] CI PT [address] [place] [address] Roxanne Sánchez, BINDERY ASSISTANT 04/11/2025 11:30 AM EDT Treatment [facility] [address] [place] [address] Ronal Andrews, BINDERY ASSISTANT 04/14/2025 11:30 AM EDT Treatment [facility] [address] [facility] [address] [place] [address] Ronal Andrews, BINDERY ASSISTANT 04/15/2025 8:30 AM EDT Treatment [facility] [address] [place] [address] Emilyollie Kenny Cristal, PT [address] [facility] [address] [place] [address] 04/17/2025 11:00 AM EDT Treatment [facility] [address] [facility] [address] [place] [address] Ronal Andrews, BINDERY ASSISTANT 05/26/2025 10:15 AM EDT Procedure Visit [facility] [address] [place] [address] Kole Batista, DPM [address] [place], [place] [id number] documented as of this encounter Visit Diagnoses Not on filedocumented in this encounter Care Teams Mash Processing Operator Relationship Specialty Start Date End Date Arnie Lund DO PCP - General Internal Medicine 08/24/23 02/17/25 Arnie Lund DO [address] [facility] [place] [address] PCP - General Internal Medicine 02/18/25 documented as of this encounter
[2025-04-08 11:56] LABS: Thyroid Stimulating Hormone 12.655 uIU/mL (0.358-3.740)
[2025-04-09 04:07] LABS: Triiodothyronine (T3) 70 ng/dL (71-180)
== END 2025-04-08 10:45 | disposition home or self-care (01) ==
LOC: LAB 10:45
PROVIDERS: PCP Internal Medicine; Visit Provider Internal Medicine
DX: Z86.39 Personal history of other endocrine, nutritional and metabolic disease (principal)
CPT/HCPCS: 36415; 84439; 84443; 84480

== ENCOUNTER 2025-04-08 10:50 | Outpatient (OUT) | payer MEDICARE, SELFPAY ==
[2025-04-08 11:23] LABS: Hematocrit 39.2 % (42.0-54.0); Hemoglobin 12.9 g/dL (14.0-18.0); Mean Corpuscular HGB Conc 32.9 g/dL (29.9-35.2); Mean Corpuscular Hemoglobin 31.5 pg (25.9-34.0); Mean Corpuscular Volume 95.8 fL (80.0-94.0); Mean Platelet Volume 8.4 fL (9.5-13.5); Platelet Count 196 10^3/uL (150-450); Red Blood Count 4.09 10^6/uL (4.70-6.10); White Blood Count 7.2 10^3/uL (4.0-11.0)
[2025-04-08 11:29] LABS: Creatinine Urine Random <13.00 mg/dL (20.00-300.00)
[2025-04-08 11:44] LABS: Albumin Level 3.6 g/dL (3.4-5.0); Anion Gap 9.8; BUN Creatinine Ratio 21.2; Calcium 9.4 mg/dL (8.5-10.1); Carbon Dioxide 34.4 mmol/L (21.0-32.0); Chloride 102 mmol/L (98-107); Estimated GFR (African America 36 (>=60 mL/min/1.73m^2); Estimated GFR (Non-African Ame 29 (>=60 mL/min/1.73m^2); Glucose 97 mg/dL (74-106); Magnesium 2.4 mg/dL (1.8-2.4); Phosphorus 3.6 mg/dL (2.6-4.7); Potassium 4.2 mmol/L (3.5-5.1); Sodium 142 mmol/L (136-145); Uric Acid 7.7 mg/dL (3.5-7.2)
[2025-04-08 13:03] LABS: Percent Iron Saturation 26.7 %
[2025-04-09 11:08] LABS: PTH, Intact 59 pg/mL (15-65)
== END 2025-04-08 10:51 | disposition home or self-care (01) ==
LOC: LAB 10:54
PROVIDERS: PCP Internal Medicine; Visit Provider Internal Medicine
DX: I13.0 Hypertensive heart and chronic kidney disease with heart failure and stage 1 through stage 4 chronic kidney disease, or unspecified chronic kidney disease (principal); N18.4 Chronic kidney disease, stage 4 (severe); E11.22 Type 2 diabetes mellitus with diabetic chronic kidney disease; N25.81 Secondary hyperparathyroidism of renal origin; D63.1 Anemia in chronic kidney disease; Z86.39 Personal history of other endocrine, nutritional and metabolic disease; I50.22 Chronic systolic (congestive) heart failure
CPT/HCPCS: 36415; 80069; 82306; 82570; 82728; 83540; 83550; 83735; 83970; 84156; 84439; 84443; 84480; 84550; 85027

== ENCOUNTER 2025-07-01 09:43 | Outpatient (OUT) | payer MEDICARE, SELFPAY ==
--- OUTSIDE RECORDS SUMMARY | 2025-07-01 10:01 | XMS_ITS | CCD ---
Author Organization [facility] Inform ion [facility] Care Team Providers Care Shallot Packer Name Role Phone GILMER SALAZAR Attending Unavailable GILMER SALAZAR Admitting Unavailable YAS LINDA Referring Unavailable YAS LINDA Primary Care Unavailable DO Yas Linda Primary Care Provider CHARLENE Kelly Attending Provider MD Kalia Sánchez Referring Provider DO Chivo Keller II Attending Provider MD Kalia Sánchez Referring Provider [phone] DO Chivo Keller II Attending Provider [phone] MD Ramesh Rascon Attending Provider DO Yas Linda Primary Care Provider MD Ramesh Rascon Attending Provider [phone] MD Kalia Sánchez Referring Provider [phone] DO Chivo Keller II Attending Provider Yas Linda Unavailable LAURA, FERMIN Admitting Unavailable LAURA, FERMIN Attending Unavailable LAURA, FERMIN Consulting Unavailable MADDI, DR SORENSON Primary Care Unavailable MISC, DR VELASQUEZ Consulting Unavailable MISC, DR VELASQUEZ Admitting Unavailable MISC, DR VELASQUEZ Attending Unavailable BALL, DR SORENSON Primary Care Unavailable GRIGSBY ., DR RUPINDER Staples Admitting Unavailable GRIGSBY ., DR RUPINDER Staples Attending Unavailable ZHONG, DR MICHAELA Jacobson Consulting Unavailable MADDI, DR [...] Admitting Unavailable BALL, DR SORENSON Attending Unavailable MIKE, ENRRIQUE Admitting Unavailable MIKE, ENRRIQUE Attending Unavailable MIKE, ENRRIQUE Consulting Unavailable BALL, DR SORENSON Primary [...] Care Unavailable BALL, DR SORENSON Admitting Unavailable MIKE, ENRRIQUE Admitting Unavailable MIKE, ENRRIQUE Attending Unavailable BALL, DR SORENSON Primary Care Unavailable BALL, DR SORENSON Consulting Unavailable LAURA, FERMIN Admitting Unavailable LAURA, FERMIN Attending Unavailable BALL, DR SORENSON Primary Care Unavailable KUNAL BUTLER, AVERY Pedroza Admitting Unavailab shaina SYED MD, AVERY Pedroza Attending Unavailab shaina SYED MD, AVERY Pedroza Consulting Unavailab shaina LINDA, DR SORENSON Primary Care Unavailable YISSEL, DR SEYMOUR Admitting Unavailable YISSEL, DR SEYMOUR Attending Unavailable MADDI, DR SORENSON Primary Care Unavailable DO Yas Linda Primary Care Provider MD Kalia Sánchez Referring Provider Arianna II, DO Chivo Howell Attending Provider DO Yas Linda Primary Care Provider MD Kalia Sánchez Referring Provider Arianna APARICIO, DO Chivo Howell Attending Provider Maddi BUTLER, Yas Staples Primary Care Provider Yas Linda DO Primary Care Provider Maddi HERRMANN, Yas Staples Primary Care Provider Maddi HERRMNAN, Yas Primary Care Provider Barrie BUTLER, Sudha Admit Provider Walker Soria MD Other Provider Wendy Mota MD Other Provider Marleen TRAFFIC LAW ATTORNEY-C, Kiesha Pedroza Other Provider Unavail able José Luis Winslow DO Other Provider [phone] Dre BUTLER, Mazin Lemos Other Provider Dario Rosales DO Other Provider Emile Reynolds DO Attending Provider Winsome Goff MD Other Provider Colleen TRAFFIC LAW ATTORNEY-C, Judy Other Provider Unavailable Zahida Flowers MD Other Provider Kaitlynn Emanuel MD Other Provider Coretta BUTLER, Talisha Other Provider Sotero Black MD Other Provider Brenda Driscoll APRN Other Provider William Quinteros DO Other Provider Clyde Bedolla MD Other Provider Wayne BUTLER, Sotero Admit Provider Sotero Black MD Attending Provider Yas Linda DO Primary Care Provider [phone] Barrie BUTLER, Sudha Admit Provider Yang BUTLER, Walker Other Provider Nakul BUTLER, Wendy Jaocbson Other Provider [phone] Marleen TRAFFIC LAW ATTORNEY-C, Kiesha Pedroza Other Provider Unavail able Nayla HERRMANN, José Luis Goyal Other Provider [phone] Dre BUTLER, Mazin Lemos Other Provider [phone] Dario Rosales DO Other Provider Emile Reynolds DO Attending Provider Winsome Goff MD Other Provider Colleen TRAFFIC LAW ATTORNEY-C, Judy Other Provider Unavailable Lionel BUTLER, Zahida Other Provider Jenae BUTLER, Kaitlynn Other Provider Coretta BUTLER, Talisha Other Provider Sotero Black MD Other Provider Brenda Driscoll APRN Other Provider William Quinteros DO Other Provider Clyde Bedolla MD Other Provider Sotero Black MD Admit Provider Sotero Black MD Attending Provider Paulo MEDINA, Noemy Other Provider Unavailable Reynaldo MEDINA, Carolynn Other Provider Unavailable Isael MEDINA, Gretel Other Provider Unavailable Sree MEDINA, Merissa Other Provider Unavailable Yuniel MEDINA, Pati Other Provider Unavailable iVcky Jasso MD Other Provider Kofi Bustamante DO Other Provider Mario Salazar MD Other Provider Rachid Adhikari DO Other Provider Genet BUTLER, Yassine Other Provider Sudha Sood MD Other Provider Micah Curry DO Other Provider Nicholas BUTLER, Nav Other Provider Unavailable Zoie Field APRN Other Provider Jameel BUTLER, Jaye Other Provider Augustine Bishop MD Other Provider Osmar BUTLER, Jan Other Provider Unavailable Shannan Valentin MD Other Provider Micah Lyn DO Other Provider [phone] Elliott Cole MD Other Provider Yaron Devi MD Other Provider Chase TRAFFIC LAW ATTORNEY-C, Candi Howell Other Provider Que LEON, Matthew Lemos Other Provider Unavailable Mayi BUTLER, Kuldeep Staples Other Provider Sacha BUTLER, Kings Other Provider Eloy Resendiz MD Other Provider Jon Cowan MD Other Provider Unavailable Elias Fermin MD Other Provider Mirian Calvo DO Other Provider Vish Bajwa DO Other Provider Krysten Mcclelland APRN Other Provider Emile Reynolds DO Other Provider [phone] Bertram BUTLER, Carole Lemos Other Provider Siobhan Zhong APRN Other Provider [phone] Aislinn Maria APRN Other Provider Yumiko BUTLER, Los Other Provider Unavailable Live Grajeda MD Other Provider [phone] Diaz DO, Doron T Other Provider Forest DO, Kia Other Provider Martín BUTLER, Wolfgang Davey Other Provider Tera BUTLER, India Villa Other Provider [phone] Deepak LEON, Lisa Other Provider Unavailable Stan BUTLER, Magnolia Other Provider Susy BUTLER, Laurent Other Provider Maryana BUTLER, Sotero Rocha Other Provider [phone] Eden BUTLER, Nav Purdy Other Provider Ermias BUTLER, Dano Other Provider Karime LEON, Aria Cabrera Other Provider Dima LEON, Alvina Other Provider Eliza RN, Aura Other Provider Unavailable Ramesh Rascon MD Other Provider Jerry Velasquez APRN Other Provider [phone] Corey BUTLER, Son Other Provider Erica Tian DO Other Provider Gilles Kirkland APRN Other Provider [phone] Walker Soria MD Attending Provider [phone] NO FAMILY, PHYSICIAN Primary Care Provider Unava ilable Yas Linda DO Primary Care Provider Yas Linda DO Primary Care Provider Kalia Sánchez MD Referring Provider Chivo Keller DO Attending Provider Kalia Sánchez MD Referring Provider Chivo Keller DO Attending Provider Zahida Flowers MD Attending Provider Yas Linda DO Primary Care Provider Yas Linda DO Attending Provider Walker Soria MD Attending Provider Arianna HERRMANN Chivo Lynda Attending Provider Kalia Sánchez MD Referring Provider Yas Linda DO Primary Care Provider Yas Linda DO Attending Provider Zahida Flowers MD Attending Provider MARILIN CLAY Attending Unavailable RUSHER, EMELY Purdy Attending Unavailable BLACKSTON, KENNY T Attending Unavailable OLEXA, WALKER Referring Unavailable BRINK, KILO Attending Unavailable OLEXA, WALKER Referring Unavailable KELBLEY, FERMIN Attending Unavailable OLEXA, WALKER Referring Unavailable OSVALDO, SHERIF Attending Unavailable OLEXA, WALKER Referring Unavailable BRINK, KILO Attending Unavailable OLEXA, WALKER Referring Unavailable BLACKSTON, KENNY T Attending Unavailable OLEXA, WALKER Referring Unavailable BRINK, KILO Attending Unavailable OLEXA, WALKER Referring Unavailable BRINK, KILO Attending Unavailable OLEXA, WALKER Referring Unavailable KELBLEY, FERMIN Attending Unavailable OLEXA, WALKER Referring Unavailable KELBLEY, FERMIN Attending Unavailable OLEXA, WALKER Referring Unavailable BRINK, KILO Attending Unavailable OLEXA, WALKER Referring Unavailable BRINK, KILO Attending Unavailable OLEXA, WALKER Referring Unavailable BLACKSTON, KENNY T Attending Unavailable OLEXA, WALKER Referring Unavailable BRINK, KILO Attending Unavailable OLEXA, WALKER Referring Unavailable KELBLEY, FERMIN Attending Unavailable OLEXA, WALKER Referring Unavailable KELBLEY, FERMIN Attending Unavailable OLEXA, WALKER Referring Unavailable BRINK, KILO Attending Unavailable OLEXA, WALKER Referring Unavailable BRINK, KILO Attending Unavailable OLEXA, WALKER Referring Unavailable BRINK, KILO Attending Unavailable OLEXA, WALEKR Referring Unavailable KELBLEY, FERMIN Attending Unavailable OLEXA, WALKER Referring Unavailable KELBLEY, FERMIN Attending Unavailable OLEXA, WALKER Referring Unavailable KELBLEY, FERMIN Attending Unavailable OLEXA, WALKER Referring Unavailable KELBLEY, FERMIN Attending Unavailable OLEXA, WALKER Referring Unavailable KELBLEY, FERMIN Attending Unavailable OLEXA, WALKER Referring Unavailable BRINK, KILO Attending Unavailable OLEXA, WALKER Referring Unavailable BRINK, KILO Attending Unavailable OLEXA, WALKER Referring Unavailable KELBLEY, FERMIN Attending Unavailable OLEXA, WALEKR Referring Unavailable BRINK, KILO Attending Unavailable OLEXA, WALKER Referring Unavailable BRINK, KILO Attending Unavailable OLEXA, WALKER Referring Unavailable EMELY BATISTA Attending Unavailable KILO GLASER Attending Unavailable OLEXA, WALKER Referring Unavailable SIDRA DELEON Attending Unavailable MARILIN CLAY Attending Unavailable [facility] Unavailable Ramesh Rascon Attending Unavailable Ramesh Rascon Admitting Unavailable Olexa, Walker Attending Unavailable [facility] Unavailable Olexa, Walker Admitting Unavailable Wayne, Sotero Attending Unavailable Wayne, Sotero Admitting Unavailable Olexa, Walker Admitting Unavailable Olexa, Walker Attending Unavailable [facility] Unavailable Olexa, Walker Consulting Unavailable [facility] Unavailable Emile Reynolds Attending Unavailable Barrie, Sudha Admitting Unavailable Wendy Mota Consulting Unavailable Kiesha Hawley Consulting Unavailable José Luis Winslow Consulting Unavailable Mazin Erickson II Consulting UnavailDario Handy Consulting Unavailable Winsome Goff Consulting Unavailable Judy Macias Consulting Unavailable Zahida Flowers Consulting Unavailable Kaitlynn Emanuel Consulting Unavailable Talisha Hitchcock Consulting Unavailable Sotero Black Consulting Unavailable Brenda Driscoll Consulting Unavailable William Quinteros Jr Consulting UnavailClyde Camacho Consulting Unavaila [facility] Unavailable Sotero Black Attending Unavailable Sotero Black Admitting Unavailable Noemy Bates Consulting Unavailable Carolynn Jacobs Consulting Unavailable Gretel Kirkland Consulting Unavailable Merissa Balbuena Consulting Unavailable Pati Brice Consulting Unavailable Vicky Jasso Consulting Unavailable Kofi Bustamante Consulting Unavailable Mario Salazar Consulting Unavailable Rachid Adhikari Consulting UnavailYassine Bliss Consulting Unavailable Barrie, Sudha Consulting Unavailable Micah Curry Consulting Unavailable Nav Peterson Consulting Unavailable Zoie Field Consulting UnavailJaye Maldonado Consulting Unavailable Augustine Bishop Consulting Unavailable Jan Prasad Consulting Unavailable Shannan Valentin Consulting Unavailable Micah Lyn Consulting Unavailable Elliott Cole Consulting Unavailable Yaron Devi Consulting Unavailable Candi Stone Consulting Unavailable Matthew Grey Consulting Unavailable Kuldeep See Consulting Unavailab [place] Joseph Consulting Unavailable Eloy Resendiz Consulting Unavailable AlmoselJon robledo Consulting Unavailable Elias Fermin Consulting Unavailable Mirian Calvo Consulting Unavailable Vish Bajwa Consulting Unavailable Krysten Mcclelland Consulting Unavailable Emile Reynolds Consulting Unavailable DaromarJeffaycosmo Lemos Consulting Unavailable Siobhan Zhong Consulting Unavailable Aislinn Maria Consulting Unavailable Los Calderon Consulting Unavailable Live Grajeda Consulting Unavailable Doron Diaz Consulting Unavailable Kia Garg Consulting Unavailable Wolfgang Resendiz Consulting Unavailable India Haley Consulting Unava ilable Lisa Sotelo Consulting Unavailable Magnolia Pierce Consulting Unavailable Laurent Jain Consulting Unavailable Sotero Mijares Consulting Unavailable Nav Harmon Consulting Unavailable Dano Monson Consulting Unavailable Aria Schaffer Consulting Unavailable Bolzastefania-Leroy Nicolettadriano Consulting UnavailAura Estevez Consulting Unavailable Winsome Goff Consulting Unavailable Judy Macias Consulting Unavailable Zahida Flowers Consulting Unavailable Singh Emanueliz Consulting Unavailable Ramesh Rascon Consulting Unavailable Jerry Velasquez Consulting Unavailable Asaad, Imad Consulting Unavailable Erica Tian Consulting Unavailable Gilles Kirkland Consulting Unavailable Yas Linda DO Primary Care Provider Yas Linda DO Attending Provider [phone] Walker Soria MD Attending Provider Kecia Gonzalez Attending Provider Kalia Sánchez MD Referring Provider Chivo Keller DO Attending Provider [phone] RON ALEJANDRE Referring Unavailable ENRRIQUE MCKEON Attending Unavailable TRANG DEGROOT Referring Unavailable RON ALEJANDRE Referring Unavailable TRANG DEGROOT Referring Unavailable TRANG DEGROOT Referring Unavailable TRANG DEGROOT Referring Unavailable TRANG DEGROOT Admitting Unavailable TRANG DEGROOT Attending Unavailable TRANG DEGROOT Attending Unavailable TRANG DEGROOT Referring Unavailable TRANG DEGROOT Referring Unavailable TRANG DEGROOT Referring Unavailable TRANG DEGROOT Referring Unavailable TRANG DEGROOT Referring Unavailable MIKAYLA, TRANG Referring Unavailable MIKAYLA, TRANG Referring Unavailable MIKAYLA, TRANG Referring Unavailable MIKAYLA, TRANG Referring Unavailable MIKAYLA, TRANG Referring Unavailable MIKAYLA, TRANG Referring Unavailable MIKAYLA, TRANG Referring Unavailable MIKAYLA, TRANG Referring Unavailable BASHIR, RON Referring Unavailable BASHIR, RON Referring Unavailable MIKAYLA, TRANG Referring Unavailable MIKAYLA, TRANG Referring Unavailable MIKAYLA, TRANG Referring Unavailable ADAN ORTIZ Attending Unavailable MIKAYLA, TRANG Attending Unavailable MIKEENRRIQUE Attending Unavailable ENRRIQUE MCKEON Attending Unavailable MIKAYLA, TRANG Referring Unavailable Allergies Allergy Classification Reported Allergen(s) Allergy Type Date of Onset Reaction(s) Facility (3 sources) black walnut pollen extract; Translations: [[id number] REDUCTASE INHIBITORS] Drug Allergy 05-16-20 18 [facility] Repository (20 sources) traMADol; Translations: [TRAMADOL] Drug Allergy 03-30-20 22 Itching [facility] Repository (20 sources) Zdipdgi-SBW-RlJ Reductase Inhibitor; Translations: [Svihsnn-LRM-BhA Reductase Inhibitor] Allergy to substance 06-03-20 Muscle Pain [facility] (13 sources) Albuterol Drug Allergy Unknown hdl therapeutics Other (17 sources) ezetimibe Drug Allergy Unknown hdl therapeutics Other (13 sources) HMG-CoA reductase inhibitor Drug allergy Unknown hdl therapeutics Other (19 sources) Niacin Drug Allergy Unknown hdl therapeutics Other (20 sources) Simvastatin Drug Allergy 12-18-19 24 Unknown, Unknown Reaction [facility] (8 sources) Statins Depletion *DIETARY PRODUCTS/DIETARY MANAGE Propensity to adverse reactions Unknown hdl therapeutics Other (4 sources) Allergies Reconciled Propensity to adverse reactions Unknown hdl therapeutics Other (8 sources) Albuterol *ANTIASTHMATIC AND BRONCHODILATOR AGENTS Propensity to adverse reactions Comment:coughi ng more with this hdl therapeutics Other (4 sources) patient allergy list reviewed by nurse or physicia Propensity to adverse reactions 04-04-20 Comment:Done hdl therapeutics Other (18 sources) Niacin Drug Allergy 12-18-19 Unknown, Unknown Reaction, itching [facility] (5 sources) HMG-CoA reductase inhibitor Propensity to adverse reactions to drug 11-03-19 [facility] (1 source) Simvastatin Drug Allergy 08-22-20 [facility] Repository (1 source) traMADol Drug Allergy 08-22-20 [facility] Repository Medications Current Medications Medication Drug Class(es) Dates Sig (Normalized) Sig (Original) ascorbic acid 500 mg oral tablet (20 sources) Vitamin C Start: 12-27-2024 End: 01-10-2025 take 1 tablet by mouth once daily take 1 tablet by mouth once rohan y Ascorbic Acid (vitamin C) 250 MG tablet Take 250 mg by mouth Daily Active Aspir-81 (7 sources) Aspir-81 Active calcium carbonate 1500 mg / cholecalciferol 800 unt chewable tablet (14 sources) Vitamin D Start: 01-20-2025 take 1 tablet by mouth once daily Start: 01-20-2025 Start: 12-27-2024 End: 01-20-2025 take 1 tablet by mouth once at mealtime Calcium Carbonate-Vitamin D3 (Oyster Shell Calcium-Vit D3) 500 mg-5 mcg (200 unit) Tablet Discontinued 1 TAB PO 3x/Day with meals January 10, 2025 8:45am January 20, 2025 11:07am Calcium Carbonate / Vitamin D (6 sources) Calcium Carbonat e-Vitamin D (CALTRATE 600+D PO) Take by mouth Active Calcium Carbonate-Vitamin D3 (Oyster Shell Calcium-Vit D3) 500 mg-5 mcg (200 unit) Tablet (1 source) Start: 12-28-19 take 1 tablet by mouth once at mealtime Calcium Carbonate-Vitamin D3 (Oyster Shell Calcium-Vit D3) 500 mg-5 mcg (200 unit) Tablet Active 1 TAB PO 3x/Day with meals December 27, 2024 12:00am Contour Next Test - (17 sources) Contour Next Wendi t - as directed In Vitro Active ezetimibe 10 mg oral tablet (20 sources) Dietary Cholesterol Absorption Inhibitor Start: 03-03-20 End: 03-19-20 take 1 tablet by mouth once daily ferrous sulfate 324 mg delayed release oral tablet (20 sources) Start: 01-11-20 take 1 tablet by mouth once daily Start: 12-15-2023 End: 03-01-2024 take 1 tablet by mouth once daily Ferrous Sulfate 325 mg (65 mg iron) tablet,delayed release (DR/EC) Discontinued 325 MG PO Daily December 15, 2023 1:00am March 01, 2024 11:17am Start: 06-09-2021 End: 07-21-2022 take 1 tablet by mouth once daily Ferrous Sulfate 324 mg (65 mg iron) Tablet,Delayed Release (Dr/Ec) Discontinued 324 MG PO Daily June 09, 2021 12:00am July 21, 2022 8:06am take 1 tablet by [place] th once daily Ferrous Sulfate 325 (65 Fe) MG 1 tablet Orally Once a day Active Jzeldhdmwqa-Nktzjoxvu-Swuhwh (Trelegy Ellipta) 200-62.5-25 MCG/ACT aerosol powder (20 sources) Fluticasone-Umec lidin-Vilant (Trelegy Ellipta) 200-62.5-25 MCG/ACT aerosol powder Inhale Active Gubvomhnkhj-Ichrkmkkz-Dpgvsu er (4 sources) Start: 03-07-20 Start: 03-07-2025 Fluticasone-Um eclidin-Vilanter (Trelegy Ellipta) 200-62.5-25 mcg blister with device Active 0 .ROUTE .COMPLEX 180 March 07, 2025 1:09pm USE 1 INHALATION BY MOUTH DAILY Complies with drug therapy Start: 03-07-2025 furosemide 40 mg oral tablet (20 sources) Loop Diuretic Start: 04-17-2025 End: 04-17-2025 take 1 tablet by mouth once daily in the morning Start: 02-28-2025 End: 04-17-2025 Furosemide 80 mg tablet Disc ontinued 40 MG PO Daily February 28, 2025 1:00pm April 17, 2025 4:20pm Start: 01-10-2025 End: 01-20-2025 take 1 tablet by mouth once daily Furosemide 40 mg Tablet Discontinued 40 MG PO Daily at 0800 90 90 January 10, 2025 12:00am January 20, 2025 11:08am Start: 10-05-2023 End: 02-28-2025 take 1 tablet by mouth once daily Furosemide 80 mg tablet Discontinued 80 MG PO Daily January 20, 2025 12:00am February 28, 2025 1:03pm hydrALAZINE hydrochloride 25 mg oral tablet (20 sources) Arteriolar Vasodilator Start: 04-17-2025 take 1 tablet by mouth twice daily Start: 04-07-2025 End: 04-17-2025 take 2 tablets by mouth twice daily Hydralazine 10 mg tablet Discontinued 20 MG PO Twice daily April 07, 2025 8:59am April 17, 2025 4:19pm Start: 02-25-2025 End: 04-07-2025 take 1 tablet by mouth twice daily Hydralazine 10 mg tablet Discontinued 10 MG PO Twice daily February 28, 2025 1:01pm April 07, 2025 9:00am Start: 06-09-2021 End: 02-28-2025 take 1 tablet by mouth three times daily Hydralazine 100 mg tablet Discontinued 100 MG PO Three times daily June 09, 2021 12:00am February 28, 2025 1:01pm On Hold: Resume on 01/24/25. hold until resumed by PCP or nephrology Start: 06-09-2021 End: 08-02-2021 take 2 tablets by mouth three times daily Hydralazine 50 mg Tablet Discontinued 100 MG PO Three times daily 0 June 09, 2021 12:00am August 02, 2021 1:38pm Start: 06-09-2021 End: 08-02-2021 take 100 mg by mouth three times daily Hydralazine Discontinued 100 MG PO Three times daily 0 June 09, 2021 12:00am August 02, 2021 1:38pm isosorbide dinitrate 10 mg oral tablet (20 sources) Nitrate Vasodilator Start: 04-07-2025 take 1 tablet by mouth twice daily Start: 07-21-2022 End: 04-07-2025 take 1 tablet by mouth three times daily Isosorbide Dinitrate 10 mg tablet Discontinued 10 MG PO Three times daily July 21, 2022 12:00am April 07, 2025 9:16am On Hold: Resume on 01/24/25. hold until resumed by PCP or nephrology Start: 06-09-2021 End: 08-31-2021 take 1 tablet by mouth three times daily Isosorbide Dinitrate 10 mg Tablet Discontinued 10 MG PO Three times daily June 09, 2021 12:00am August 31, 2021 9:56am levothyroxine sodium 0.025 m g oral tablet (19 sources) l-Thyroxine Start: 02-20-2025 End: 05-19-2025 take 1 tablet by mouth once daily levothyroxine (T irosint) 25 MCG capsule Take by mouth in the morning. Take before meals. Active 24 hr metoprolol succinate 100 mg extended release oral tablet (20 sources) beta-Adrenergic [place] Start: 01-20-2025 take 1 tablet by mouth once daily Start: 01-10-2025 End: 01-20-2025 take 1 tablet by mouth once daily Metoprolol Succinate 25 mg Tablet Extended Release 24 Hr Discontinued 25 MG PO Daily 90 January 10, 2025 12:00am January 20, 2025 11:09am Start: 12-15-2023 End: 01-10-2025 take 1 tablet by mouth once daily Metoprolol Succinate 100 mg tablet extended release 24 hr Discontinued 100 MG PO Daily December 15, 2023 1:00am January 10, 2025 8:46am Start: 08-02-2021 End: 12-15-2023 Metoprolol Succinate 50 mg t ablet extended release 24 hr Discontinued 100 MG PO Daily August 02, 2021 12:00am December 15, 2023 2:46pm Start: 08-02-2021 End: 12-15-2023 take 100 mg by mouth once daily Metoprolol Succinate Discontinued 100 MG PO Daily August 02, 2021 12:00am December 15, 2023 2:46pm Start: 06-09-2021 End: 08-02-2021 take 1 tablet by mouth once daily Metoprolol Succinate 25 mg Tablet Extended Release 24 Hr Discontinued 25 MG PO Daily June 09, 2021 12:00am August 02, 2021 1:37pm take 2 tablets by [facility] every twenty-four hours in the morning metoprolol succinate XL (TOPROL-XL) 50 mg 24 hr tablet Take 2 tablets (100 mg total) by mouth in the morning. Active niacin 500 mg oral tablet (20 sources) Nicotinic Acid Start: 06-09-2021 take 1 tablet by mouth once daily Niacin 500 mg Tablet Active 500 MG PO Daily June 09, 2021 12:00am Complies with drug therapy paxlovid (300/100) 20 x 150 mg & 10 x 100mg tablet therapy pack (2 sources) Start: 01-11-2023 take 3 tablets by mouth every twelve hours Paxlovid (300/100) 20 x 150 MG & 10 x 100MG 3 tablets Orally Twice a day for 5 day(s) Dec, Active microencapsulated potassium chloride 10 meq extended release oral tablet (20 sources) Start: 01-28-2025 End: 04-07-2025 take 1 tablet by mouth once daily Start: 10-15-2024 End: 01-10-2025 take 1 tablet by mouth once daily Potassium Chloride 10 mEq tablet,ER particles/crystals Discontinued 0 .ROUTE .COMPLEX October 15, 2024 3:36pm January 10, 2025 8:38am TAKE 1 TABLET BY MOUTH DAILY Start: 06-09-2021 End: 10-15-2024 Potassium Chloride (Klor-Con 10) 10 mEq Tablet Extended Release Discontinued 10 MEQ PO Daily June 09, 2021 12:00am October 15, 2024 3:36pm Potassium Chloride 10 mEq tablet,ER particles/crystals (2 sources) Start: 10-15-2024 take 1 tablet by mouth once daily Potassium Chloride 10 mEq tablet,ER particles/crystals Active 0 .ROUTE .COMPLEX October 15, 2024 3:36pm TAKE 1 TABLET BY MOUTH DAILY rivaroxaban 15 mg oral tablet (9 sources) Factor Xa Inhibitor Start: 04-07-2025 take 1 tablet by mouth once daily at dinner TRELEGY ELLIPTA 200-62.5-25 mcg blister with device (5 sources) Start: 02-22-2023 take 1 puff(s) by [...] a day for 5 day(s) Dec, Active (20 sources) Start: 01-28-2025 Start: 01-20-2025 End: 01-20-2025 Start: 01-10-2025 End: 01-20-2025 Start: 01-10-2025 Start: 12-27-2024 End: 01-28-2025 Start: 12-27-2024 Start: 12-27-2024 End: 01-10-2025 Start: 10-15-2024 End: 01-10-2025 Start: 12-15-2023 Start: 08-02-2021 End: 03-03-2023 Start: 06-09-2021 End: 08-02-2021 Start: 06-09-2021 End: 08-02-2021 Completed/Discontinued Medications Medication Drug Class(es) Dates Sig (Normalized) Sig (Original) acetaminophen 500 mg oral tablet (20 sources) Start: 01-10-2025 End: 01-28-2025 take 1 tablet by mouth every four hours as needed for pain Acetaminophen 500 mg Tablet Discontinued 500 MG PO Q4H as needed for Pain 0 January 10, 2025 12:00am January 28, 2025 2:33pm Start: 08-12-2024 End: 01-28-2025 take 2 tablets by mouth every eight hours as needed for pain Acetaminophen (Acetaminophen Extra Strength) 500 mg tablet Discontinued 1000 MG PO Every 8 hours as needed for pain August 12, 2024 12:00am January 10, 2025 8:46am Start: 06-09-2021 End: 07-14-2021 take 1 tablet by mouth every six hours as needed for pain Acetaminophen 500 mg Tablet Discontinued 500 MG PO Q6H as needed for Pain 120 June 09, 2021 12:00am July 14, 2021 8:42am acetaminophen 325 mg / HYDROcodone bitartrate 5 mg oral tablet (20 sources) Opioid Agonist Start: 08-22-2021 End: 08-31-2021 take 1 tablet by mouth every six hours as needed for pain Hydrocodone-Acetaminophen 5-325 mg Tablet Discontinued 1 TAB PO Q6H as needed for Pain 12 05August 22, 2021 August 31, 2021 9:56am Start: 08-22-2021 End: 08-31-2021 albuterol 0.83 mg/ml inhalation solution (13 sources) beta2-Adrenergic Agonist Start: 12-27-2024 End: 01-10-2025 take 2.5 mg by inhalation every two hours as needed Albuterol Sulfate 2.5 mg /3 mL (0.083 %) Solution For Nebulization Discontinued 2.5 MG INHALATION Q2H as needed for Shortness Of Breath December 27, 2024 12:00am January 10, 2025 8:46am Start: 12-27-2024 End: 01-10-2025 allopurinol 100 mg oral tablet (20 sources) Xanthine Oxidase Inhibitor Start: 06-09-2021 End: 01-10-2025 take 1 tablet by mouth once daily Allopurinol 100 mg tablet Discontinued 100 MG PO Daily June 05, 2024 10:39pm January 10, 2025 8:45am amiodarone hydrochloride 200 mg oral tablet (20 sources) Antiarrhythmic Start: 09-16-2024 End: 09-16-2025 take 1 tablet by mouth once daily Amiodarone 200 mg tablet Discontinued 200 MG PO Daily January 10, 2025 8:45am April 17, 2025 4:18pm amLODIPine 10 mg oral tablet (20 sources) Dihydropyridine Calcium Channel [place] Start: 01-28-2025 End: 04-17-2025 take 1 tablet by mouth once daily Amlodipine 10 mg tablet Discontinued 10 MG PO Daily January 28, 2025 12:00am April 17, 2025 4:20pm On Hold: None Start: 01-20-2025 End: 01-20-2025 take 1 tablet by mouth once daily Amlodipine 10 mg tablet Discontinued 10 MG PO Daily January 20, 2025 12:00am January 20, 2025 11:25am Start: 07-21-2022 End: 01-10-2025 take 1 tablet by mouth once daily Amlodipine 10 mg tablet Discontinued 10 MG PO Daily July 21, 2022 12:00am January 10, 2025 8:46am Start: 08-02-2021 End: 08-31-2021 take 1 tablet by mouth once daily Amlodipine 10 mg tablet Discontinued 10 MG PO Daily August 02, 2021 12:00am August 31, 2021 9:54am Start: 06-09-2021 End: 08-02-2021 take 1 tablet by mouth once daily Amlodipine 5 mg Tablet Discontinued 5 MG PO Daily June 09, 2021 12:00am August 02, 2021 1:35pm amoxicillin 500 mg / clavulanate 125 mg oral tablet (13 sources) Penicillin-class Antibacterial Start: 12-27-2024 End: 01-10-2025 take 1 tablet by mouth twice daily Amoxicillin-Pot Clavulanate 500-125 mg Tablet Discontinued 1 TAB PO Twice daily 01 15December 27, 2024 12:00am January 10, 2025 8:46am Start: 12-27-2024 End: 01-10-2025 Anoro Ellipta (20 sources) Start: 08-02-2021 End: 03-03-2023 take 62.5 [...] 09, 2021 12:00am August 02, 2021 1:40pm apixaban 2.5 mg oral tablet (20 sources) Factor Xa Inhibitor Start: 03-03-2023 End: 05-26-2025 take 1 tablet by mouth twice daily Apixaban (Eliquis) 2.5 mg Tablet Discontinued 2.5 MG PO Twice daily 180 90 January 10, 2025 12:00am April 07, 2025 8:59am Start: 02-16-2023 take 1 tablet by [place] th in the morning, then take 1 tablet by mouth at bedtime apixaban (ELIQUIS) 5 mg tablet Take 1 tablet (5 mg total) by mouth in the morning and 1 tablet (5 mg total) before bedtime. 02/16/2023 Active aspirin 325 mg oral tablet (20 sources) Platelet Aggregation Inhibitor, Nonsteroidal Anti-inflammatory Drug Start: 12-15-2023 End: 12-15-2023 take 1 tablet by mouth once daily Aspirin 325 mg tablet Discontinued 325 MG PO Daily December 15, 2023 1:00am December 15, 2023 2:44pm Start: 02-25-2022 End: 09-01-2023 take 1 tablet by mouth once daily Aspirin 81 mg Tablet,Delayed Release (Dr/Ec) Discontinued 81 MG PO Daily February 25, 2022 12:00am September 01, 2023 2:51pm Start: 06-09-2021 End: 08-02-2021 take 1 tablet by mouth once daily Aspirin 81 mg Tablet,Delayed Release (Dr/Ec) Discontinued 81 MG PO Daily June 09, 2021 12:00am August 02, 2021 1:37pm take 1 tablet by [place] th once daily as needed Aspirin 325 mg 325 mg one tab orally daily Not-Taking/PRN take 1 tablet by [place]akot[place] th once daily Aspirin 325 mg 325 mg one tab orally daily Not-Taking azithromycin 250 mg oral tablet (13 sources) Macrolide Antimicrobial Start: 12-27-2024 End: 01-10-2025 take 2 tablets by mouth every twenty-four hours Azithromycin 250 mg Tablet Discontinued 500 MG PO Q24H 4 2 December 27, 2024 12:00am January 10, 2025 8:46am benazepril hydrochloride 40 mg oral tablet (20 sources) Angiotensin Converting Enzyme Inhibitor Start: 12-15-2023 End: 09-09-2024 take 1 tablet by mouth once daily Benazepril 40 mg tablet Discontinued 40 MG PO Daily December 15, 2023 1:00am September 09, 2024 10:33am Budesonide (20 sources) Corticosteroid Start: 12-15-2023 End: 02-15-2024 Start: 12-15-2023 End: 02-15-2024 take 180 ug by inhalation twice daily Budesonide 180 mcg/actuation aerosol powdr breath activated Discontinued 180 MCG INHALATION Twice daily December 15, 2023 1:00am February 15, 2024 11:22pm Start: 12-15-2023 End: 02-15-2024 take 180 ug by inhalation twice daily Budesonide Discontinued 180 MCG INHALATION Twice daily December 15, 2023 1:00am February 15, 2024 11:22pm Start: 08-02-2021 End: 03-03-2023 Start: 08-02-2021 End: 03-03-2023 Budesonide (Pulmicort Flexha [...] 02, 2021 1:40pm Start: 06-01-2021 End: 06-09-2021 Start: 06-01-2021 End: 06-09-2021 take 180 ug [...] oral tablet (20 sources) Loop Diuretic Start: 06-09-2021 End: 08-02-2021 Bumetanide 1 mg Tablet Discontinued 1 MG PO Q48H June 09, 2021 12:00am August 02, 2021 1:40pm Start: 06-09-2021 End: 12-18-2023 take 1 tablet by mouth once daily Bumetanide 1 mg tablet Discontinued 2 MG PO Daily December 15, 2023 2:39pm December 18, 2023 11:32am Start: 06-09-2021 End: 12-18-2023 take 2 mg by mouth once daily Bumetanide Discontinued 2 MG PO Daily December 15, 2023 2:39pm December 18, 2023 11:32am End: 05-26-2025 take 1 tablet by mouth once daily bumetanide (Bumex) 2 MG tablet Take 2 mg by mouth Daily 05/26/2025 Discontinued (Discontinued by another clinician) Bumex 1 MG 2 Ora lly Once a day Active carvedilol 25 mg oral tablet (17 sources) alpha-Adrenergic [place], beta-Adrenergic [place] Carvedilol 25 MG Orally Not-Taking/PRN cefTRIAXone 2000 mg injection (20 sources) Cephalosporin Antibacterial Start : 06-09 End: 07-14 take 2 g intravenously every twenty-four hours Ceftriaxone 2 gram Recon Soln Discontinued 2 GM IV Q24H 0 June 09, 2021 12:00am July 14, 2021 8:41am cephalexin 500 mg oral capsule (4 sources) Cephalosporin Antibacterial Start : 03-25 End: 04-07 take 1 capsule by mouth twice daily Cephalexin 500 mg capsule Discontinued 500 MG PO Twice daily 14 March 25, 2025 12:00am April 07, 2025 8:54am cholecalciferol 0.125 mg oral tablet (20 sources) Vitamin D Start : 12-14 End: 01-10 take 1 tablet by mouth once daily Cholecalciferol (Vitamin D3) 125 mcg (5,000 unit) tablet Discontinued 5000 UNIT PO Daily December 15, 2023 1:00am January 10, 2025 8:46am Start: 06-09-2021 End: 12-15-2023 take 1 capsule by mouth once daily Cholecalciferol (Vitamin D3) 125 mcg (5,000 unit) Capsule Discontinued 125 MCG PO Daily 30 June 09, 2021 12:00am December 15, 2023 2:47pm take 1 tablet by [place] th in the morning cholecalciferol, vitamin D3, 5,000 units tablet Take 1 tablet (5,000 Units total) by mouth in the morning. Active cloNIDine hydrochloride 0.1 mg oral tablet (17 sources) Central alpha-2 Adrenergic Agonist take 1 tablet by mouth every twenty-four hours cloNIDine HCl 0.1 MG 1 tablet at bedtime Orally Once a day Not-Taking/PRN docusate sodium 100 mg oral capsule (13 sources) Start: End: take 1 capsule by mouth twice daily Docusate Sodium 100 mg Capsule Discontinued 100 MG PO Twice daily 60 December 27, 2024 12:00am January 10, 2025 8:46am Fluticasone-Umeclidin -Vilanter (16 sources) Start: 024 End: Fluticasone-Umeclidin -Vilanter (Trelegy Ellipta) 200-62.5-25 mcg blister with device Discontinued 1 INH INHALATION Daily 90 February 15, 2024 12:00am March 07, 2025 1:09pm Start: 02-15-2024 End: 03-07-2025 Start: 02-15-2024 Start: 02-15-2024 Fluticasone-Um eclidin-Vilanter (Trelegy Ellipta) 200-62.5-25 mcg blister with device Active 1 INH INHALATION Daily 90 90 February 15, 2024 12:00am lidocaine 0.04 mg/mg medicated patch (20 sources) Antiarrhythmic, Amide Local Anesthetic Start: 06-09-2021 [...] 1 tablet Orally Once a day Not-Taking/PRN losartan potassium 25 mg oral tablet (16 sources) Angiotensin 2 Receptor [place] Start: 08-08-2024 End: 04-07-2025 take 1 tablet by mouth once daily Losartan 25 mg tablet Discontinued 25 MG PO Daily August 12, 2024 12:00am April 07, 2025 9:17am On Hold: Resume on 01/24/25. hold until resumed by PCP or nephrology methIMAzole 10 mg oral tablet (20 sources) Thyroid Hormone Synthesis Inhibitor Start: 04-22-2024 End: 12-21-2024 take 5 mg by mouth every other day Methimazole 10 mg tablet Discontinued 5 MG PO .every other day August 12, 2024 12:00am September 16, 2024 6:32pm Start: 04-22-2024 take 5 mg by mouth e very other day Methimazole Active 5 MG PO .QOD 10 April 22, 2024 11:06am Start: 04-17-2024 End: 04-22-2024 take 0.5 tablet by mouth once daily Methimazole 10 mg tablet Discontinued 0 .ROUTE .COMPLEX April 17, 2024 [...] April 17, 2024 5:53pm Start: 12-15-2023 End: 04-17-2024 take 5 mg by mouth every other day Methimazole 10 mg tablet Discontinued 5 MG PO .QOD February 01, 2024 3:47pm April 17, 2024 5:53pm Start: 12-15-2023 End: 02-01-2024 take 5 mg by mouth once daily Methimazole 10 mg tablet Discontinued 5 MG PO Daily December 15, 2023 1:00am February 01, 2024 3:47pm Start: 12-15-2023 End: 02-01-2024 take 5 mg by mouth once daily Methimazole Discontinued 5 MG PO Daily December 15, 2023 1:00am February 01, 2024 3:47pm Start: 10-06-2022 take 0.5 tablet by m outh once daily methIMAzole 10 MG 1/2 tablet Orally Once a day Sep, Active Start: 02-25-2022 End: 12-15-2023 take 4 tablets by mouth twice daily Methimazole 5 mg Tablet Discontinued 20 MG PO Twice daily February 25, 2022 12:00am December 15, 2023 2:46pm Start: 02-25-2022 End: 12-15-2023 take 20 mg by mouth twice daily Methimazole Discontinu ed 20 MG PO Twice daily February 25, 2022 12:00am December 15, 2023 2:46pm End: 05-26-2025 take 1 tablet by mouth in the morning, then take 1 tablet by mouth in the evening, then take 1 tablet by mouth at bedtime methIMAzole (Tapazole) 10 MG tablet Take 10 mg by mouth in the morning and 10 mg in the evening and 10 mg before bedtime. 05/26/2025 Discontinued (Discontinued by another clinician) Multivitamin With Folic Acid (Thera) 400 mcg Tablet (4 sources) Start: 12-27-2024 End: 01-28-2025 take 1 tablet by mouth once daily Multivitamin With Folic Acid (Thera) 400 mcg Tablet Discontinued 1 TAB PO Daily December 27, 2024 12:00am January 28, 2025 2:35pm Start: 12-27-2024 take 1 tablet by [place] th once daily Multivitamin With Folic Acid (Thera) 400 mcg Tablet Active 1 TAB PO Daily December 27, 2024 12:00am oxyCODONE hydrochloride 5 mg oral tablet (20 sources) Opioid Agonist Start: 12-27-2024 End: 01-10-2025 take 2 tablets by mouth every four hours as needed for pain Oxycodone 5 mg Tablet Discontinued 10 MG PO Every 4 hours as needed for Pain Scale 6 - 10 December 27, 2024 January 10, 2025 8:46am Start: 12-27-2024 End: 01-10-2025 take 1 tablet by mouth every four hours as needed for pain Oxycodone 5 mg Tablet Discontinued 5 MG PO Every 4 hours as needed for Pain Scale 1 - 5 December 27, 2024 January 10, 2025 8:46am Start: 06-09-2021 End: 08-02-2021 take 1 tablet by mouth every six hours as needed for pain Oxycodone 5 mg Tablet Discontinued 5 MG PO Q6H as needed for Pain 12 05June 09, 2021 August 02, 2021 1:40pm Start: 06-09-2021 End: 08-02-2021 polyethylene glycol 3350 [id number] mg powder for oral solution (20 sources) Osmotic Laxative Start: 12-27-2024 End: 01-10-2025 Polyethylene Glycol 3350 (Healthylax) 17 gram Powder In Packet Discontinued 17 GM PO Daily December 27, 2024 12:00am January 10, 2025 8:46am Start: 06-09-2021 End: 07-14-2021 Polyethylene Glycol 3350 (Mi ralax) 17 gram Powder In Packet Discontinued 17 GM PO Daily June 09, 2021 12:00am July 14, 2021 8:40am propranolol hydrochloride 10 mg oral tablet (20 sources) beta-Adrenergic [place] Start: 02-25-2022 End: 10-06-2022 take 1 tablet by mouth three times [...] / vilanterol 0.025 mg/actuat dry powder inhaler (20 sources) Anticholinergic, beta2-Adrenergic Agonist Start: 12-15-2023 End: 02-15-2024 Umeclidinium-Vilanterol 62.5-25 mcg/actuation blister with device Discontinued 1 INH INHALATION Daily December 15, 2023 1:00am February 15, 2024 11:20pm Start: 12-15-2023 End: 02-15-2024 Anoro Ellipta 62 .5-25 MCG/ACT USE 1 INHALATION BY MOUTH DAILY Active Anoro Ellipta 62 .5-25 MCG/ACT USE 1 INHALATION BY MOUTH DAILY Active Problems Active Problems Problem Classification Problem Date Documented Date Episodic/Chronic Acute and unspecified renal failure (20 sources) Acute kidney failure with tubular necrosis; Translations: [Acute renal failure syndrome] Onset: 2 12-24-2024 Episodic Acute posthemorrhagic anemia (20 sources) Acute posthemorrhagic anemia; Translations: [Acute posthemorrhagic anemia] 01-28-2025 Episodic Administrative/social admission (20 sources) Other reduced mobility; Translations: [Impaired mobility and activities of daily living] Onset: 5 08-31-2021 Episodic Aspiration pneumonitis; food/vomitus (20 sources) Aspiration pneumonia; Translations: [Pneumonitis due to inhalation of food and vomit] Onset: 5 12-23-2024 Episodic Asthma (4 sources) Uncomplicated moderate persistent asthma; Translations: [Moderate persistent asthma, uncomplicated] Chronic Bacterial infection; unspecified site (20 sources) Bacteremia caused by Gram-positive bacteria; Translations: [Bacteremia] Onset: 8 Resolved: 2 08-31-2021 Episodic Cancer of colon (20 sources) Malignant tumor of colon; Translations: [Malignant neoplasm of colon, unspecified] Onset: 5 08-31-2021 Chronic Comment on above: Hemicolectomy ,Surveillance colonoscopy 07/2022 (repeat 2 years) Hemicolectomy ,Surveillance colonoscopy 07/2022, 2023 (repeat 2 years) Cardiac dysrhythmias (20 sources) Atrial fibrillation; Translations: [Unspecified atrial fibrillation] Onset: 2 08-31-2021 Chronic Comment on above: hx ablation Ablation - 10/2019Car dioversion - 10/2024 BiV ICD 05/2023,DCCV - 10/2024, Chronic kidney disease (20 sources) Chronic kidney disease stage 3; Translations: [Stage 3 chronic kidney disease] Onset: 5 08-31-2021 Chronic Chronic kidney disease (2 sources) Chronic kidney disease; Translations: [Chronic kidney disease, stage 3b] Onset: Chronic obstructive pulmonary disease and bronchiectasis (20 sources) Chronic obstructive lung disease; Translations: [Chronic obstructive pulmonary disease, unspecified] Onset: 8 08-31-2021 Chronic Complications of surgical procedures or medical care (7 sources) Hypotension following procedure; Translations: [Postprocedural hypotension] 01-28-2025 Episodic Conduction disorders (20 sources) Cardiac pacemaker in situ; Translations: [Presence of cardiac pacemaker] Onset: 0 08-31-2021 Chronic Congestive heart failure; nonhypertensive (20 sources) Heart failure with reduced ejection fraction; Translations: [Unspecified systolic (congestive) heart failure] Onset: 2 08-31-2021 Chronic Comment on above: Echo: LVEF 25%, RV r educed function, RVSP 61, SANJAY, mod MR 02/2023 Echo: LVEF 25%, RV r educed function, RVSP 61, SANJAY, mod MR - 02/2023,Echo: LVEF 20-25%, TRISH, normal RV size/function, RVSP - 03/2025 Coronary atherosclerosis and other heart disease (20 sources) Coronary arteriosclerosis; Translations: [Atherosclerotic heart disease of [place] coronary artery without angina pectoris] Onset: 2 08-31-2021 Chronic Deficiency and other anemia (20 sources) Iron deficiency anemia; Translations: [Iron deficiency anemia, unspecified] 08-31-2021 Episodic Deficiency and other anemia (13 sources) Chronic anemia; Translations: [Anemia, unspecified] 12-24-2024 Episodic Diabetes mellitus with complications (20 sources) Hyperglycemia due to type 2 diabetes mellitus; Translations: [Type 2 diabetes mellitus with hyperglycemia] Onset: 0 Chronic Diabetes mellitus without complication (15 sources) Type 2 diabetes mellitus; Translations: [Type 2 diabetes mellitus without complications] Onset: 2 08-31-2021 Chronic Disorders of lipid metabolism (20 sources) Hypercholesterolemia; Translations: [Pure hypercholesterolemia, unspecified] Onset: 0 08-31-2021 Chronic Essential hypertension (20 sources) Hypertensive disorder; Translations: [Essential (primary) hypertension] Onset: 2 08-31-2021 Chronic Fluid and electrolyte disorders (7 sources) Hypokalemia; Translations: [Hypokalemia] Episodic Fracture of neck of femur (hip) (20 sources) Fracture of neck of femur; Translations: [Fracture of unspecified part of neck of unspecified femur, initial encounter for closed fracture] Onset: 5 12-22-2024 Episodic Gout and other crystal arthropathies (4 sources) Primary gout; Translations: [Acute gouty arthropathy] Onset: 9 Chronic Hyperplasia of prostate (8 sources) Lower urinary tract symptoms due to benign prostatic hypertrophy; Translations: [Benign prostatic hyperplasia with lower urinary tract symptoms] Onset: 5 Chronic Hypertension with complications and secondary hypertension (20 sources) Chronic kidney disease due to hypertension; Translations: [Hypertensive chronic kidney disease with stage 1 through stage 4 chronic kidney disease, or unspecified chronic kidney disease] Onset: 2 12-15-2023 Chronic Immunizations and screening for infectious disease (4 sources) Vaccination given; Translations: [Encounter for immunization] Episodic Infective arthritis and osteomyelitis (except that caused by tuberculosis or sexually transmitted disease) (20 sources) Osteomyelitis of vertebra; Translations: [Osteomyelitis of vertebra, lumbar region] Resolved: 2 08-31-2021 Chronic Miscellaneous mental health disorders (20 sources) Primary insomnia; Translations: [Primary insomnia] Onset: 4 07-08-2024 Chronic Mycoses (3 sources) Onychomycosis; Translations: [Tinea unguium] 02-21-2025 Episodic Neoplasms of unspecified nature or uncertain behavior (6 sources) Neoplasm of colon; Translations: [Neoplasm of unspecified behavior of digestive system] 08-31-2021 Episodic Nutritional deficiencies (1 source) 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; 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] Onset: 2 Chronic Open wounds of extremities (3 sources) Tear of skin; Translations: [Laceration without foreign body of left forearm, initial encounter] 03-25-2025 Episodic Osteoarthritis (20 sources) Osteoarthritis of knee; Translations: [Unilateral primary osteoarthritis, left knee] Chronic Other and unspecified benign neoplasm (7 sources) History of polyp of colon; Translations: [Personal history of colonic polyps] Episodic Other connective tissue disease (17 sources) History of arthroplasty of left knee; Translations: [Presence of left artificial knee joint] Chronic Other connective tissue disease (9 sources) History of repair of hip joint; Translations: [Presence of right artificial hip joint] 01-09-2025 Chronic Other connective tissue disease (12 sources) Presence of right artificial hip joint; Translations: [Hip joint replacement] Onset: 5 01-14-2025 Chronic Other connective tissue disease (20 sources) History of total replacement of right hip joint; Translations: [Presence of right artificial hip joint] 03-20-2025 Chronic Other connective tissue disease (7 sources) History of hemiarthroplasty of right hip; Translations: [Presence of right artificial hip joint] 04-07-2025 Chronic Other connective tissue disease (20 sources) Iliopsoas abscess; Translations: [Psoas muscle abscess] 08-31-2021 Episodic Other connective tissue disease (20 sources) Trochanteric bursitis; Translations: [Trochanteric bursitis, left hip] 02-25-2025 Episodic Other connective tissue disease (3 sources) Trochanteric bursitis, left hip; Translations: [Enthesopathy of hip region] 02-25-2025 Episodic Other connective tissue disease (4 sources) Trochanteric bursitis of left hip; Translations: [Trochanteric bursitis, left hip] 02-25-2025 Episodic Other diseases of kidney and ureters (13 sources) Secondary hyperparathyroidism; Translations: [Secondary hyperparathyroidism of renal origin] 01-20-2025 Chronic Other diseases of kidney and ureters (5 sources) Secondary hyperparathyroidism of renal origin; Translations: [Secondary hyperparathyroidism (of renal origin)] 01-20-2025 Chronic Other diseases of veins and lymphatics (20 [...] cerumen, bilateral] 08-21-2024 Episodic Other gastrointestinal disorders (19 sources) Constipation; Translations: [Constipation, unspecified] 08-31-2021 Episodic Other gastrointestinal disorders (12 sources) Occult blood in stools; Translations: [Other fecal abnormalities] 01-03-2025 Episodic Other injuries and conditions due to [...] [Other acute postprocedural pain] 08-31-2021 Episodic Other non-traumatic joint disorders (20 sources) Hip pain; Translations: [Pain in left hip] 02-25-2025 Episodic Other nutritional; endocrine; and metabolic disorders (4 sources) Obesity; Translations: [Obesity, unspecified] Chronic Other nutritional; endocrine; and metabolic disorders (8 sources) Obese class I; Translations: [Body mass index 33.0-33.9, adult] Onset: Chronic Other nutritional; endocrine; and metabolic disorders [...] inflammatory arthritis and tophaceous disease Episodic Other nutritional; endocrine; and metabolic disorders (6 sources) H/O: thyroid disorder; Translations: [Personal history of other endocrine, nutritional and metabolic disease] 04-07-2025 Episodic Other screening for suspected conditions (not mental disorders or infectious disease) (17 sources) Encounter for screening for malignant neoplasm of prostate; Translations: [Blood chemistry abnormal] Onset: 3 Resolved: 2 Episodic Other skin disorders (3 sources) Dystrophia unguium; Translations: [Nail dystrophy] 02-21-2025 Episodic [place]-; endo-; and myocarditis; cardiomyopathy (except that caused by tuberculosis or sexually transmitted disease) (20 sources) Nonischemic congestive cardiomyopathy; Translations: [Dilated cardiomyopathy] Onset: 2 Chronic Comment on above: LHC: nonobstructive coronary disease - 2016s/p ICD - 10/2019, BiV ICD - 05/2023 LHC: nonobstructive coronary disease - 2016,s/p ICD - 10/2019, BiV ICD - 05/2023 Pulmonary heart disease (20 sources) Chronic pulmonary heart disease; Translations: [Other chronic pulmonary heart diseases] Onset: 8 Chronic Residual codes; unclassified (20 sources) Obstructive sleep apnea syndrome; Translations: [Obstructive sleep apnea (adult) (pediatric)] Onset: 4 12-15-2023 Chronic Residual codes; unclassified (20 sources) Obstructive sleep apnea (adult) (pediatric); Translations: [Obstructive sleep apnea (adult)(pediatric)] Onset: 5 Chronic Residual codes; unclassified (20 sources) Hypersomnia; Translations: [Hypersomnia, unspecified] Onset: 4 07-08-2024 Chronic Residual codes; unclassified (20 sources) Patient encounter status; Translations: [Encounter for prophylactic measures, unspecified] 08-31-2021 Episodic Comment on above: PSA: 0.91 - 07/2024 PSA: 0.91 - 07/2024, 0.98 - 02/2025 Residual codes; unclassified (6 sources) History of colectomy; Translations: [Acquired absence of other specified parts of digestive tract] 08-31-2021 Episodic Residual codes; unclassified (4 sources) Requires influenza virus vaccination; Translations: [Need for prophylactic vaccination and inoculation, Influenza] Episodic Residual codes; unclassified (4 sources) Tobacco user; Translations: [Tobacco use] Episodic Residual codes; unclassified (3 sources) Other specified health status; Translations: [Other specified health status] Onset: 3 Episodic Screening and history of mental health and substance abuse codes (9 sources) Personal history of nicotine dependence; Translations: [History of tobacco use] Onset: 7 Episodic Skin and subcutaneous tissue infections (7 sources) Carbuncle; Translations: [Carbuncle, unspecified] Resolved: 1 03-25-2025 Episodic Spondylosis; intervertebral disc disorders; other back problems (20 sources) Lumbar spondylosis; Translations: [Spondylosis without myelopathy or radiculopathy, lumbar region] Chronic Spondylosis; intervertebral disc disorders; other back problems (6 sources) Backache; Translations: [Dorsalgia, unspecified] 08-31-2021 Episodic Thyroid disorders (20 sources) Thyrotoxicosis; Translations: [Thyrotoxicosis, unspecified without thyrotoxic crisis or storm] Onset: 2 Resolved: 2 Chronic Unclassified (1 source) CHRN KIDNEY DISEASE STG 3 UNSP; Translations: [CHRN KIDNEY DISEASE STG 3 UNSP] Onset: 2 Unclassified (1 source) CONTACT W/AND (SUSP) EXPOS COVID-19; Translations: [CONTACT W/AND (SUSP) EXPOS COVID-19] Onset: 2 Unclassified (1 source) A [facility] screening has identified you as FRAIL or AT RISK FOR FRAILTY. This puts you at a higher risk for infection, illness, falls, and other injuries. Here are four ways to help you reduce your risk of frailty: 1. IDENTIFY EARLY SIGNS OF FRAILTY Discuss contributing factors and concerns with your doctor 2. BE ACTIVE Walking and light strengthening exercises will help reduce weakness 3. EAT WELL Aim for three healthy meals a day that are high in protein 4. THINK POSITIVE Keep your mind active by being sociable and continuing to learn References: Stay Strong: Four Ways to Beat the Frailty Risk https://www.[facility]/health/wellness- and-prevention/stay-stro wd-gvam-dxjd-to-beat-the -fra ilty-risk 12-27-2024 Unclassified (2 sources) Other persistent atrial fibrillation; Translations: [Other persistent atrial fibrillation] Onset: Past or Other Problems Problem Classification Problem Date Documented Da te Episodic/Chronic Cancer of colon (1 source) Personal history of other malignant neoplasm of large intestine; Translations: [PERS HX OTH MALIG NEOPLSM LG INTEST] Onset: 03-09-2022 Episodic Deficiency and other anemia (11 sources) Iron deficiency anemia, unspecified; Translations: [Iron deficiency anemia, unspecified] Onset: 03-09-2022 01-10-2025 Episodic Deficiency and other anemia (20 sources) Anemia, unspecified; Translations: [Anemia, unspecified] Onset: 12-21-2024 12-27-2024 Episodic Diabetes mellitus without complication (4 sources) Impaired fasting glycemia; Translations: [Impaired fasting glucose] Resolved: 10-06-2022 Episodic Open wounds of head; neck; and trunk (4 sources) Laceration with foreign body of scalp, subsequent encounter; Translations: [Laceration with foreign body of scalp, subsequent encounter] Onset: 12-28-2017 Episodic Other aftercare (1 source) 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; Translations: [OTH [facility] CURRENT DRUG THERAPY] Onset: 03-09-2022 Episodic Other connective tissue disease (4 sources) Pain in limb; Translations: [Pain in soft tissues of limb] Onset: 10-12-2015 Episodic Other ear and sense organ disorders (4 sources) Impacted cerumen; Translations: [Impacted cerumen, bilateral] Resolved: 10-06-2022 Episodic Other gastrointestinal disorders (10 sources) Other fecal abnormalities; Translations: [Nonspecific abnormal findings in stool contents] Onset: 12-27-2024 01-10-2025 Episodic Other lower respiratory disease (4 sources) Other forms of dyspnea; Translations: [OTHER FORMS OF DYSPNEA] Onset: 05-10-2022 Episodic Other nervous system disorders (1 source) Tremor, unspecified; Translations: [TREMOR UNSPECIFIED] Onset: 03-09-2022 Episodic Other non-traumatic joint disorders (4 sources) Arthralgia of the ankle and/or foot; Translations: [Pain in joint, ankle and foot] Onset: 03-13-2019 Episodic Other non-traumatic joint disorders (1 source) Pain in left hip; Translations: [Pain in left hip] Onset: 02-25-2025 Episodic Other nutritional; endocrine; and metabolic disorders [...] edema; Translations: [Localized edema] Onset: 03-13-2019 Episodic Superficial injury; contusion (4 sources) Contusion of other part of head, subsequent encounter; Translations: [Contusion of other part of head, subsequent encounter] Onset: 12-28-2017 Episodic Unclassified (7 sources) Other eosinophilia; Translations: [Other eosinophilia] Viral infection (1 source) COVID-19 Results Test Name Value Interpretation Reference Range Facility 36on 06-26-2025 36 Thought I had sent a message to someone. BP's look good, continue current medication regimen. Thanks [facility] 36 Pt calling wondering about bps they are in media [facility] Telephoneon 06-26-2025 Telephone [id number] Delano Ren 1940 M Date Provider Department Center 06/26/2025 Nguyễn-CALDERON MIKE [facility] Family History Problem Relation Age of Onset Diabetes Mother Heart disease Father Glaucoma Brother Diabetes Maternal Grandmother Clotting disorder Other Family Status - Relation Status Age at Mother Father Brother Maternal Grandmother Other [facility] Orders Onlyon 06-24-2025 Orders Only [id number] Delano Ren 1940 M Date Provider Department Center 06/24/2025 TRANG LOPEZ [facility] Family History Problem Relation Age of Onset Diabetes Mother Heart disease Father Glaucoma Brother Diabetes Maternal Grandmother Clotting disorder Other Family Status - Relation Status Age at Mother Father Brother Maternal Grandmother Other [facility] 36on 06-06-2025 36 Enrrique Mckeon, JOSSIE iMke MA Please have him increase his isordil and hydralazine to TID. Continue to monitor BP 2 hours after medications. Let us know his readings in 2-3 weeks. Thank you! Previous Messages [employer] Officer Notice: Other - Scan on 06/04/2025 10:32 AM: bp log 06/04/25 Advised of Meera Snell recommendations. verbalized understanding and agreed with plan of care [facility] Orders Onlyon 06-06-2025 Orders Only [id number] Delano Ren 1940 M Provider Department Center 06/06/2025 ENRRIQUE TAVAREZ CARD [facility] Family History Problem Relation Age of Onset Diabetes Mother Heart disease Father Glaucoma Brother Diabetes Maternal Grandmother Clotting disorder Other Family Status - Relation Status Age at Mother Father Brother Maternal Grandmother Other [facility] ERYTHROPOETIN (EPO), SERUMon 06-02-2025 ERYTHROPOETIN (EPO), SERUM 22 m[iU]/mL 2.6 - 18.5 m[iU]/mL [facility] Comment on above: [employer] el DxI 800 Immunoassay System Values obtained with different assay methods or kits cannot be used interchangeably. Results cannot be interpreted as absolute evidence of the presence or absence of malignant disease. Performed at: [address] [id number] Rack Puller: Nathan Munoz PhD, Phone: [phone] [facility] Albumin [Mass/volume] in Ser um or Plasma by Bromocresol green (BCG) dye binding methoOrdered By: Chivo Keller on 05-30-2025 Albumin BCG dye [Mass/Vol] 4.2 g/dL 3.5-5.7 [facility] CARCINOEMBRYONIC ANTIGENon 0 05-30-2025 Interpretation and review of laboratory results Abnormal [facility] CBC W Auto Differential pane l (Bld)on 05-30-2025 Basophils (Bld) [#/Vol] 0 10*3/uL 0.0 - 0.2 10*3/uL [facility] Basophils/100 WBC Manual cnt (Syn fld) 0.4 % . [facility] Eosinophils (Bld) [#/Vol] 0.2 10*3/uL 0. 0 - 0.45 10*3/uL [facility] Eosinophils/100 WBC Manual cnt (Syn fld) 2.2 % . [facility] Erythrocyte distribution width (RBC) [Ratio] 14.7 % 12.0 - 14.8 % [facility] Hematocrit (Bld) [Volume fraction] 37.5 % Low 38.8 - 50.0 % [facility] Hemoglobin (Bld) [Mass/Vol] 12.5 g/dL Low 13.0 - 17.0 g/dL [facility] Interpretation and review of laboratory results Abnormal [facility] Lymphocytes (Bld) [#/Vol] 1.4 10*3/uL 1. 00 - 4.8 10*3/uL [facility] Lymphocytes/100 WBC Manual cnt (Syn fld) 19.9 % . [facility] MCH (RBC) [Entitic mass] 31.7 pg 27. 5 - 35.2 pg [facility] MCHC (RBC) [Mass/Vol] 33.2 g/dL 32.5 - 35.6 g/dL [facility] MCV (RBC) [Entitic vol] 95.5 fL 83.5 - 101 fL [facility] Monocytes (Bld) [#/Vol] 0.7 10*3/uL 0.0 - 0.8 10*3/uL [facility] Monocytes+Macrophages/100 WBC Manual cnt (Syn fld) 9.7 % . [facility] Neutrophils (Bld) [#/Vol] 4.9 10*3/uL 1. 8 - 7.7 10*3/uL [facility] Neutrophils/100 WBC Manual cnt (Syn fld) 67.8 % . [facility] NRBC 0 /100{WBC} 0 - 0.5 /100{WBC} [facility] Platelet mean volume (Bld) [Entitic vol] 7.3 fL 6.6 - 10.1 fL [facility] Platelets (Bld) [#/Vol] 205 10*3/uL 150 - 450 10*3/uL [facility] RBC LM.HPF (Urine sed) [#/Area] 3.93 10*6/uL 3.90 - 5.60 10*6/uL [facility] WBC (Bld) [#/Vol] 7.2 10*3/uL 4.1 - 10.5 10*3/uL [facility] WBC LM.HPF (Urine sed) [#/Area] 7.2 [CFU]/mL 4.1 - 10.5 [CFU]/mL [facility] Complete Blood Count Auto Di ffOrdered By: Chivo Keller on 05-30-2025 Basophils (Bld) [#/Vol] 0.0 10*3/uL 0.0-0.2 [facility] Comment on above: Result Comment: PERF ORMED BY: [place] [address] PATHOLOGIST PIPE CONNECTOR LOGAN TAYLOR M.D. Performed By: #### R ADEEL, CBC #### [facility] [address] [place] [address] [place] Basophils/100 WBC (Bld) 0.4 % . [facility] Comment on above: Performed By: #### R ENAL, CBC #### [facility] [address] [place] [address] [place] Eosinophils (Bld) [#/Vol] 0.2 10*3/uL 0.0-0.45 [facility] Comment on above: Performed By: #### R ENAL, CBC #### [facility] [address] [place] [address] [place] Eosinophils/100 WBC (Bld) 2.2 % . [facility] Comment on above: Performed By: #### R ENAL, CBC #### [address] Erythrocyte distribution width (RBC) [Ratio] 14.7 % 12.0-14.8 [facility] Comment on above: Performed By: #### R ENAL, CBC #### [facility] [address] Hematocrit (Bld) [Volume fraction] 37.5 % Low 38.8-50.0 [facility] Comment on above: Performed By: #### R ENAL, CBC #### [address] Hemoglobin (Bld) [Mass/Vol] 12.5 g/dL Low 13.0-17.0 [facility] Comment on above: Performed By: #### R ENAL, CBC #### [address] Lymphocytes (Bld) [#/Vol] 1.4 10*3/uL 1.00-4.8 [facility] Comment on above: Performed By: #### R ENAL, CBC #### [place] [address] [place] Lymphocytes/100 WBC (Bld) 19.9 % . [facility] Comment on above: Performed By: #### R ENAL, CBC #### [address] MCH (RBC) [Entitic mass] 31.7 pg 27.5-35.2 [facility] Comment on above: Performed By: #### R ENAL, CBC #### [address] MCV (RBC) [Entitic vol] 95.5 fL 83.5-[address] [facility] Comment on above: Performed By: #### R ENAL, CBC #### [address] Monocytes (Bld) [#/Vol] 0.7 10*3/uL 0.0-0.8 [facility] Comment on above: Performed By: #### R ENAL, CBC #### [facility] [address] [place] [address] [place] Monocytes/100 WBC (Bld) 9.7 % . [facility] Comment on above: Performed By: #### R ENAL, CBC #### [facility] [address] Neutrophils (Bld) [#/Vol] 4.9 10*3/uL 1.8-7.7 [facility] Comment on above: Performed By: #### R ENAL, CBC #### [facility] [address] Neutrophils/100 WBC (Bld) 67.8 % . [facility] Comment on above: Performed By: #### R ENAL, CBC #### [facility] [address] Platelet mean volume (Bld) [Entitic vol] 7.3 fL 6.6-10.1 [facility] Comment on above: Performed By: #### R ENKIMMIE, CBC #### [facility] [address] [place] [address] [place] Platelets (Bld) [#/Vol] 205 10*3/uL 150-450 [facility] Comment on above: Performed By: #### R ENKIMMIE, CBC #### [facility] [address] RBC (Bld) [#/Vol] 3.93 10*6/uL 3.90-5.60 [facility] Comment on above: Performed By: #### R ENAL, CBC #### [facility] [address] [place] [address] [place] WBC (Bld) [#/Vol] 7.2 10*3/uL 4.1-10.5 [facility] Comment on above: Performed By: #### R ENAL, CBC #### [facility] [address] Complete Blood Count Auto Di ffon 05-30-2025 Mean Corpuscular HGB Conc 33.2 g/dL Normal 32.5-35.6 [facility] Comment on above: Performed By: #### R ENAL, CBC #### [address] NRBC% 0.0 /100{WBC} Normal 0-0.5 [facility] Comment on above: Performed By: #### R ENKIMMIE, CBC #### [address] White Blood Count 7.2 [CFU]/mL Normal 4.1-10.5 [facility] Comment on above: Performed By: #### R ENAL, CBC #### [address] Comprehensive Metabolic Pane vijay 05-30-2025 Albumin [Mass/Vol] 4.2 g/dL Normal 3.5-5.7 [facility] Comment on above: Performed By: #### R ADEEL, CBC #### [address] Creatinine Clr Calc Pharmacy 26.38 Normal [facility] Comment on above: Performed By: #### R ENAL, CBC #### [address] GFR/1.73 sq M.predicted MDRD (S/P/Bld) [Vol rate/Area] 28.071 mL/min/{1.73_m2} Normal [facility] Comment on above: Performed By: #### R ENAL, CBC #### [address] Comprehensive Metabolic Pane lOrdered By: Chivo Keller on 05-30-2025 Albumin/Globulin [Mass ratio] 1.8 {ratio} [facility] Comment on above: Performed By: #### R ENKIMMIE, CBC #### [address] ALP [Catalytic activity/Vol] 124 U/L High 34-104 [facility] Comment on above: Performed By: #### R ENKIMMIE, CBC #### [address] ALT [Catalytic activity/Vol] 15 U/L 7-52 [facility] Comment on above: Performed By: #### R ENAL, CBC #### [facility] [address] Anion gap [Moles/Vol] 10.2 mmol/L 6.0-15.0 [facility] Comment on above: Performed By: #### R ENAL, CBC #### [facility] [address] AST [Catalytic activity/Vol] 17 U/L 13-39 [facility] Comment on above: Performed By: #### R ENAL, CBC #### [facility] [address] Bilirubin [Mass/Vol] 0.6 mg/dL 0.3-1.0 [facility] Comment on above: Performed By: #### R ENAL, CBC #### [facility] [address] Calcium [Mass/Vol] 8.6 mg/dL 8.6-10.3 [facility] Comment on above: Performed By: #### R ENAL, CBC #### [facility] [address] Chloride [Moles/Vol] 101 mmol/L 98-107 [facility] Comment on above: Performed By: #### R ENAL, CBC #### [facility] [address] CO2 [Moles/Vol] 34.0 mmol/L High 21.0-31.0 [facility] Comment on above: Performed By: #### R ENAL, CBC #### [facility] [address] Creatinine [Mass/Vol] 2.26 mg/dL High 0.70-1.30 [facility] Comment on above: Performed By: #### R ENAL, CBC #### [facility] [address] Globulin (S) [Mass/Vol] 2.3 g/dL [facility] Comment on above: Performed By: #### R ENAL, CBC #### [address] Glucose [Mass/Vol] 106 mg/dL High 70-100 [facility] Comment on above: Result Comment: [place] om Glucose Reference Range is dependent on time and content of last meal. Glucose of more than 200 mg/dL in a nonstressed, ambulatory subject supports the diagnosis of Diabetes Mellitus. ADA recommended reference range Performed By: #### R ENAL, CBC #### [address] ADA recommended refe rence rangeRandom Glucose Reference Range is dependent on time and content of last meal. Glucose of more than 200 mg/dL in a nonstressed, ambulatory subject supports the diagnosis of Diabetes Mellitus. Potassium [Moles/Vol] 4.2 mmol/L 3.5-5.1 [facility] Comment on above: Performed By: #### R ENAL, CBC #### [address] Protein [Mass/Vol] 6.5 g/dL 6.4-8.9 [facility] Comment on above: Performed By: #### R ENAL, CBC #### [address] Sodium [Moles/Vol] 141 mmol/L 136-145 [facility] Comment on above: Performed By: #### R ENAL, CBC #### [address] Urea nitrogen [Mass/Vol] 44 mg/dL High 7-25 [facility] Comment on above: Performed By: #### R ENAL, CBC #### [place] [address] [place] Erythropoetin (EPO), Serumon 05-30-2025 Erythropoetin (EPO), Serum 22.0 m[iU]/mL Normal 2.6-18.5 [facility] Comment on above: Result Comment: [employer] DxI 800 Immunoassay System Values obtained with different assay methods or kits cannot be used interchangeably. Results cannot be interpreted as absolute evidence of the presence or absence of malignant disease. Performed at: [facility] [address] [id number] Rack Puller: Nathan Munoz PhD, Phone: [phone] PERFORMED BY: [place] [address] PATHOLOGIST PIPE CONNECTOR LOGAN TAYLOR M.D. Performed By: #### F E and TIBC, CMP, TONY, CBC, CEA, [id number] ####[address]#### EPO ####[facility] , FerritinOrdered By: Chivo Keller on 05-30-2025 Ferritin [Mass/Vol] 236.2 ng/mL 23.9-336.2 [facility] Comment on above: Performed By: #### R ENAL, CBC #### [address] Folate [Mass/volume] in Seru m or PlasmaOrdered By: Chivo Keller on 05-30-2025 Folate [Mass/Vol] ng/mL >5.9 [facility] Comment on above: Folate reference ran ge: >5.9 ng/mlThe WHO technical consultation on folate and vitamin [id number] has determined that folate concentrations lessthan 4 ng/ml are considered deficient. Iron and TIBC Profileon 05-16 % Iron Saturation 28.1 % Normal 20-50 [facility] Comment on above: Performed By: #### R ENAL, CBC #### [address] Total Iron Binding Capacity 270 ug/dL Normal 255-450 [facility] Comment on above: Performed By: #### R ENAL, CBC #### [address] Iron and TIBC ProfileOrdered By: Chivo Keller on 05-30-2025 Iron [Mass/Vol] 76 ug/dL 50-212 [facility] Comment on above: Performed By: #### R ENAL, CBC #### [facility] [address] [place] [address] [place] Transferrin [Mass/Vol] 193 mg/dL Low 203-362 [facility] Comment on above: Performed By: #### R ENAL, CBC #### [facility] [address] [place] [address] [place] Leukocytes [#/volume] correc bonnie for nucleated erythrocytes in Blood by Automated counOrdered By: Chivo Keller on 05-30-2025 WBC corrected for nucl RBC Auto (Bld) [#/Vol] 7.2 10*3/uL 4.1-10.5 [facility] MCHC Auto (RBC) [Mass/Vol]Or dered By: Chivo Keller on 05-30-2025 MCHC (RBC) [Mass/Vol] 33.2 g/dL 32.5-35.6 [facility] No Panel InformationOrdered By: Chivo Keller on 05-30-2025 Estimated GFR (CKD-EPI) 28.071 mL/Min [facility] Creatinine Clearance (Chem 26.38 [facility] Nucleated erythrocytes [Pres ence] in Blood by Automated countOrdered By: Chivo Keller on 05-30-2025 Nucleated RBC Auto Ql (Bld) 0.0 /100{WBC} 0-0.5 [facility] Serum or plasma erythropoiet in (EPO) measurement (units/volume)Ordered By: Chivo Keller on 05-30-2025 Erythropoietin (EPO) Qn 22.0 mIU/mL High 2.6-18.5 [facility] Comment on above: [employer] DxI 800 Immunoassay SystemValues obtained with different assay methods or kits cannotbe used interchangeably. Results cannot be interpreted asabsolute evidence of the presence or absence of malignantdisease.Performed at: [facility] [employer] [id number] Director: Nathan Munoz PhD, Phone: [phone] Serum or plasma iron binding capacity measurement (mass/volume)Ordered By: Chivo Keller on 05-30-2025 Iron binding capacity [Mass/Vol] 270 ug/dL 255-450 [facility] Serum or plasma iron saturat ion measurement (mass fraction)Ordered By: Chivo Keller on 05-30-2025 Iron saturation [Mass fraction] 28.1 % 20-50 [facility] Vit. B12/Folate ProfileOrder ed By: Chivo Keller on 05-30-2025 Cobalamin (Vitamin B12) [Mass/Vol] 433 pg/mL 180-914 [facility] Comment on above: Performed By: #### F E and TIBC, CMP, TONY, CBC, CEA, [id number] ####[facility] [place] [address] [facility]#### EPO ####[facility] , Vit. B12/Folate Profileon Folate >49.6 Normal >5.9 [facility] Comment on above: Result Comment: Echo te reference range: >5.9 ng/ml The WHO technical consultation on folate and vitamin b12 deficiencies has determined that folate concentrations less than 4 ng/ml are considered deficient. PERFORMED BY: [facility] [address] [place] [id number] PATHOLOGIST PIPE CONNECTOR LOGAN TAYLOR M.D. Performed By: #### F E and TIBC, CMP, TONY, CBC, CEA, [id number] ####[facility] [place] [address] [facility]#### EPO ####[facility] , Office Visiton 05-27-2025 Follow-up visit [id number] Delano Ren 1940 M Date Provider Department Center 05/27/2025 TRANG LOPEZ D[facility] Family History Problem Relation Age of Onset Diabetes Mother Heart disease Father Glaucoma Brother Diabetes Maternal Grandmother Clotting disorder Other Family Status - Relation Status Age at Mother Father Brother Maternal Grandmother Other Level of Service:[address] [place] OFFICE/OUTPATIENT ESTABLISHED LOW MDM 20 MIN Normal [facility] Orders Onlyon 05-22-2025 Orders Only [id number] Delano Ren 1940 M Date Provider Department Center 05/22/2025 TIEN RANGEL [facility] C[facility] Family History Problem Relation Age of Onset Diabetes Mother Heart disease Father Glaucoma Brother Diabetes Maternal Grandmother Clotting disorder Other Family Status - Relation Status Age at Mother Father Brother Maternal Grandmother Other [facility] Orders Only [id number] Delano Ren Jefry 1940 M Date Provider Department Center 05/22/2025 TRANG LOPEZ [facility] Family History Problem Relation Age of Onset Diabetes Mother Heart disease Father Glaucoma Brother Diabetes Maternal Grandmother Clotting disorder Other Family Status - Relation Status Age at Mother Father Brother Maternal Grandmother Other [facility] Documentationon 04-25-2025 Documentation [id number] Delano Ren Jefry 1940 M Date Provider Department Center 04/25/2025 FERMIN CANCHOLA [facility] [place] [facility] Family History Problem Relation Age of Onset Diabetes Mother Heart disease Father Glaucoma Brother Diabetes Maternal Grandmother Clotting disorder Other Family Status - Relation Status Age at Mother Father Brother Maternal Grandmother Other Reason for Visit and Comments: Congestive Heart Failure [127] [facility] Office Visiton 04-14-2025 Follow-up visit [id number] Delano Ren Jefry 1940 M Date Provider Department Center 04/14/2025 ADAN YOUSIF [facility] Family History Problem Relation Age of Onset Diabetes Mother Heart disease Father Glaucoma Brother Diabetes Maternal Grandmother Clotting disorder Other Family Status - Relation Status Age at Mother Father Brother Maternal Grandmother Other Level of Service:[address] [place] OFFICE/OUTPATIENT ESTABLISHED MOD MDM 30 MIN [facility] Erythrocyte distribution wid th Auto (RBC) [Ratio]Ordered By: Zahida Flowers on 04-08-2025 Erythrocyte distribution width (RBC) [Ratio] 14.0 % 11.0-15.0 [facility] Estimated glomerular filtrat ion rate (GFR) non- AmericanOrdered By: Zahida Flowers on 04-08-2025 GFR/1.73 sq M.predicted among non-blacks MDRD (S/P/Bld) [Vol rate/Area] 29 mL/min/{1.73_m2} Low >=60 mL/min/1.73 m 2 [facility] Hematocrit Auto (Bld) [Volum e fraction]Ordered By: Zahida Flowers on 04-08-2025 Hematocrit (Bld) [Volume fraction] 39.2 % Low 42.0-54.0 [facility] Hemoglobin [Mass/volume] in BloodOrdered By: Zahida Flowers on 04-08-2025 Hemoglobin (Bld) [Mass/Vol] 12.9 g/dL Low 14.0-18.0 [facility] Iron binding capacity [Mass/ volume] in Serum or PlasmaOrdered By: Zahida Flowers on 04-08-2025 Iron binding capacity [Mass/Vol] 236.0 ug/dL Low 250.0-450.0 [facility] Iron saturation [Mass Fracti on] in Serum or PlasmaOrdered By: Zahida Flowers on 04-08-2025 Iron saturation [Mass fraction] 26.7 % [facility] Laboratory - Chemistry and C hemistry - challengeOrdered By: Zahida Flowers on 04-08-2025 Albumin [Mass/Vol] 3.6 g/dL 3.4-5.0 [facility] Calcium [Mass/Vol] 9.4 mg/dL 8.5-10.1 [facility] Chloride [Moles/Vol] 102 mmol/L 98-107 [facility] CO2 [Moles/Vol] 34.4 mmol/L High 21.0-32.0 [facility] Creatinine [Mass/Vol] 2.17 mg/dL High 0.70-1.30 [facility] Ferritin [Mass/Vol] 432.0 ng/mL High 26.0-388.0 [facility] GFR/1.73 sq M.predicted MDRD (S/P/Bld) [Vol rate/Area] 36 mL/min/{1.73_m2} Low >=60 mL/min/1.73 m 2 [facility] Glucose [Mass/Vol] 97 mg/dL 74-106 [facility] Iron [Mass/Vol] 63.0 ug/dL Low 65.0-175.0 [facility] Magnesium [Mass/Vol] 2.4 mg/dL 1.8-2.4 [facility] Potassium [Moles/Vol] 4.2 mmol/L 3.5-5.1 [facility] Sodium [Moles/Vol] 142 mmol/L 136-145 [facility] Urate [Mass/Vol] 7.7 mg/dL High 3.5-7.2 [facility] Urea nitrogen [Mass/Vol] 46.0 mg/dL High 7.0-18.0 [facility] Urea nitrogen/Creatinine [Mass ratio] 21.2 mg/mg [facility] Laboratory - Chemistry and C hemistry - challengeOrdered By: Yas Linda on 04-08-2025 Free T4 [Mass/Vol] 1.00 ng/dL 0.76-1.46 [facility] TSH Qn 12.655 m[IU]/L High 0.358-3.740 [facility] Laboratory - UrinalysisOrder ed By: Zahida Flowers on 04-08-2025 Protein (U) [Mass/Vol] 24.0 mg/dL High <=11.9 [facility] Leukocytes [#/volume] correc bonnie for nucleated erythrocytes in Blood by Automated counOrdered By: Zahida Flowers on 04-08-2025 WBC corrected for nucl RBC Auto (Bld) [#/Vol] 7.2 10 3/uL 4.0-11.0 [facility] MCH Auto (RBC) [Entitic mass ]Ordered By: Zahida Flowers on 04-08-2025 MCH (RBC) [Entitic mass] 31.5 pg 25.9-34.0 [facility] MCHC Auto (RBC) [Mass/Vol]Or dered By: Zahida Flowers on 04-08-2025 MCHC (RBC) [Mass/Vol] 32.9 g/dL 29.9-35.2 [facility] MCV Auto (RBC) [Entitic vol] Ordered By: Zahida Flowers on 04-08-2025 MCV (RBC) [Entitic vol] 95.8 fL High 80.0-94.[address] [facility] No Panel InformationOrdered By: Zahida Flowers on 04-08-2025 25-Hydroxy Vitamin D Total 89.1 ng/mL [facility] Comment on above: <20 ng/mL Vit D defi cient20-<30 ng/mL Vit D [id number] ng/mL Vit D sufficient>100 ng/mL Potential Toxicity Parathyroid Hormone (Intact) 59 pg/mL 15-65 [facility] Comment on above: Performed at: [employer] [id number] Director: Nathan Munoz PhD, Phone: [phone] Phosphorus Level 3.6 mg/dL 2.6-4.7 [facility] Urine Random Creatinine <13.00 mg/dL Low 20.0 0-300.0 0 [facility] No Panel InformationOrdered By: Yas Linda on 04-08-2025 Total Triiodothyronine 70 ng/dL Abnormal 71-[address] [facility] Comment on above: Performed at: [facility] [place] [id number] Director: Nathan Munoz PhD, Phone: [phone] Platelet mean volume Auto (B ld) [Entitic vol]Ordered By: Zahida Flowers on 04-08-2025 Platelet mean volume (Bld) [Entitic vol] 8.4 fL Low 9.5-13.5 [facility] Platelets Auto (Bld) [#/Vol] Ordered By: Zahida Flowers on 04-08-2025 Platelets (Bld) [#/Vol] 196 10 3/uL 150-450 [facility] RBC Auto (Bld) [#/Vol]Ordere d By: Zahida Flowers on 04-08-2025 RBC (Bld) [#/Vol] 4.09 10 6/uL Low 4.70-6.10 [facility] Serum or plasma anion gap de terminationOrdered By: Zahida Flowers on 04-08-2025 Anion gap [Moles/Vol] 9.8 mmol/L [facility] 36on 03-06-2025 36 If he is feeling okay (no dizziness/LH), would like him to increase his hydralazine to 25mg BID. He can use up his 10mg tablets by taking 2 tablets (equally 20mg) until this is out then start the hydralazine 25mg BID. Thanks! Normal [facility] Orders Onlyon 03-06-2025 Orders Only [id number] Delano Ren 1940 Date Provider Department Center 03/06/2025 ENRRIQUE TAVAREZ [facility] CARD [place] Heart[facility] Family History Problem Relation Age of Onset Diabetes Mother Heart disease Father Glaucoma Brother Diabetes Maternal Grandmother Clotting disorder Other Family Status - Relation Status Age at Mother Father Brother Maternal Grandmother Other Normal [facility] Basophils Auto (Bld) [#/Vol] Ordered By: Chivo Keller on 02-28-2025 Basophils (Bld) [#/Vol] Automated basoph il count 0.0-0.2 [facility] Basophils [#/volume] in Bloo d by Automated countOrdered By: Chivo Keller on 02-28-2025 Basophils (Bld) [#/Vol] 0.0 10*3/uL Normal 0.0-0.2 [facility] Comment on above: Result Comment: PERF ORMED BY: [place] [address] PATHOLOGIST PIPE CONNECTOR KRISTEL LU M.D. Performed By: #### R ENAL, CBC #### [facility] [address] [place] [address] Basophils/100 WBC Auto (Bld) Ordered By: Chivo Keller on 02-28-2025 Basophils/100 WBC (Bld) Automated basophil % . [facility] Basophils/100 leukocytes in Blood by Automated countOrdered By: Chivo Keller on 02-28-2025 Basophils/100 WBC (Bld) 0.2 % Normal . [facility] Comment on above: Performed By: #### R ENAL, CBC #### [facility] [address] CBC W Auto Differential pane l (Bld)on 02-28-2025 Basophils (Bld) [#/Vol] 0 10*3/uL 0.0 - 0.2 10*3/uL [facility] Basophils/100 WBC Manual cnt (Syn fld) 0.2 % . [facility] Eosinophils (Bld) [#/Vol] 0.1 10*3/uL 0. 0 - 0.45 10*3/uL [facility] Eosinophils/100 WBC Manual cnt (Syn fld) 0.9 % . [facility] Erythrocyte distribution width (RBC) [Ratio] 15.5 % High 12.0 - 14.8 % [facility] Hematocrit (Bld) [Volume fraction] 33.5 % Low 38.8 - 50.0 % [facility] Hemoglobin (Bld) [Mass/Vol] 11.2 g/dL Low 13.0 - 17.0 g/dL [facility] Interpretation and review of laboratory results Abnormal [facility] Lymphocytes (Bld) [#/Vol] 1.1 10*3/uL 1. 00 - 4.8 10*3/uL [facility] Lymphocytes/100 WBC Manual cnt (Syn fld) 15.1 % . [facility] MCH (RBC) [Entitic mass] 31.6 pg 27. 5 - 35.2 pg [facility] MCHC (RBC) [Mass/Vol] 33.5 g/dL 32.5 - 35.6 g/dL [facility] MCV (RBC) [Entitic vol] 94.3 fL 83.5 - 101 fL [facility] Monocytes (Bld) [#/Vol] 0.5 10*3/uL 0.0 - 0.8 10*3/uL [facility] Monocytes+Macrophages/100 WBC Manual cnt (Syn fld) 6.9 % . [facility] Neutrophils (Bld) [#/Vol] 5.4 10*3/uL 1. 8 - 7.7 10*3/uL [facility] Neutrophils/100 WBC Manual cnt (Syn fld) 76.9 % . [facility] NRBC 0 /100{WBC} 0 - 0.5 /100{WBC} [facility] Platelet mean volume (Bld) [Entitic vol] 7.2 fL 6.6 - 10.1 fL [facility] Platelets (Bld) [#/Vol] 232 10*3/uL 150 - 450 10*3/uL [facility] RBC LM.HPF (Urine sed) [#/Area] 3.55 10*6/uL Low 3.90 - 5.60 10*6/uL [facility] WBC (Bld) [#/Vol] 7 10*3/uL 4.1 - 10.5 10*3/uL [facility] WBC LM.HPF (Urine sed) [#/Area] 7 10*3/uL 4.1 - 10.5 10*3/uL [facility] Complete Blood Count Auto Di ffon 02-28-2025 Mean Corpuscular HGB Conc 33.5 g/dL Normal 32.5-35.6 [facility] Comment on above: Performed By: #### R ENAL, CBC #### [facility] [address] [place] [address] NRBC% 0.0 /100{WBC} Normal 0-0.5 [facility] Comment on above: Performed By: #### R ENAL, CBC #### [facility] [address] [place] [address] [place] Eosinophils Auto (Bld) [#/Vo l]Ordered By: Chivo Keller on 02-28-2025 Eosinophils (Bld) [#/Vol] Automated eosi nophil count 0.0-0.45 [facility] Eosinophils [#/volume] in Bl ood by Automated countOrdered By: Chivo Keller on 02-28-2025 Eosinophils (Bld) [#/Vol] 0.1 10*3/uL Normal 0.0-0.45 [facility] Comment on above: Performed By: #### R ENAL, CBC #### [facility] [address] [place] [address] [place] Eosinophils/100 WBC Auto (Bl d)Ordered By: Chivo Keller on 02-28-2025 Eosinophils/100 WBC (Bld) Automated eosi nophil % . [facility] Eosinophils/100 leukocytes i n Blood by Automated countOrdered By: Chivo Keller on 02-28-2025 Eosinophils/100 WBC (Bld) 0.9 % Normal . [facility] Comment on above: Performed By: #### R ADEEL, CBC #### [facility] [address] Erythrocyte distribution wid th Auto (RBC) [Ratio]Ordered By: Chivo Keller on 02-28-2025 Erythrocyte distribution width (RBC) [Ratio] Erythrocyte distribution width [Ratio] by Automated count High 12.0-14.8 [facility] Erythrocyte distribution wid th [Ratio] by Automated countOrdered By: Chivo Keller on 02-28-2025 Erythrocyte distribution width (RBC) [Ratio] 15.5 % High 12.0-14.8 [facility] Comment on above: Performed By: #### R ADEEL, CBC #### [address] Erythrocytes [#/volume] in B lood by Automated countOrdered By: Chivo Keller on 02-28-2025 RBC (Bld) [#/Vol] 3.55 10*6/uL Low 3.90-5.60 [facility] Comment on above: Performed By: #### R ADEEL, CBC #### [address] Hematocrit Auto (Bld) [Volum e fraction]Ordered By: Chivo Keller on 02-28-2025 Hematocrit (Bld) [Volume fraction] Hematocrit [Volume Fraction] of Blood by Automated count Low 38.8-50.0 [facility] Hematocrit [Volume Fraction] of Blood by Automated countOrdered By: Chivo Keller on 02-28-2025 Hematocrit (Bld) [Volume fraction] 33.5 % Low 38.8-50.0 [facility] Comment on above: Performed By: #### R ADEEL, CBC #### [facility] [address] [place] [address] Hemoglobin [Mass/volume] in BloodOrdered By: Chivo Keller on 02-28-2025 Hemoglobin (Bld) [Mass/Vol] Hemoglobin [Mass/volume] in Blood Low 13.0-17.0 [facility] Hemoglobin (Bld) [Mass/Vol] 11.2 g/dL Low 13.0-17.0 [facility] Comment on above: Performed By: #### R ENAL, CBC #### [facility] [address] [place] [address] Leukocytes [#/volume] correc bonnie for nucleated erythrocytes in Blood by Automated counOrdered By: Chivo Keller on 02-28-2025 WBC corrected for nucl RBC Auto (Bld) [#/Vol] Leukocytes [#/volume] corrected for nucleated erythrocytes in Blood by Automated coun 4.1-10.5 [facility] WBC corrected for nucl RBC Auto (Bld) [#/Vol] 7.0 10*3/uL 4.1-10.5 [facility] Leukocytes [#/volume] in Blo od by Automated countOrdered By: Chivo Keller on 02-28-2025 WBC (Bld) [#/Vol] 7.0 10*3/uL Normal 4.1-10.5 [facility] Comment on above: Performed By: #### R ENKIMMIE, CBC #### [address] Lymphocytes Auto (Bld) [#/Vo l]Ordered By: Chivo Keller on 02-28-2025 Lymphocytes (Bld) [#/Vol] Lymphocytes [#/volume] in Blood by Automated count 1.00-4.8 [facility] Lymphocytes [#/volume] in Bl ood by Automated countOrdered By: Chivo Keller on 02-28-2025 Lymphocytes (Bld) [#/Vol] 1.1 10*3/uL Normal 1.00-4.8 [facility] Comment on above: Performed By: #### R ENAL, CBC #### [facility] [address] [place] [address] Lymphocytes/100 WBC Auto (Bl d)Ordered By: Chivo Keller on 02-28-2025 Lymphocytes/100 WBC (Bld) Lymphocytes/10 0 leukocytes in Blood by Automated count . [facility] Lymphocytes/100 leukocytes i n Blood by Automated countOrdered By: Chivo Keller on 02-28-2025 Lymphocytes/100 WBC (Bld) 15.1 % Normal . [facility] Comment on above: Performed By: #### R ENAL, CBC #### [facility] [address] MCH Auto (RBC) [Entitic mass ]Ordered By: Chivo Keller on 02-28-2025 MCH (RBC) [Entitic mass] MCH [Entitic ma ss] by Automated count 27.5-35.2 [facility] MCH [Entitic mass] by Automa bonnie countOrdered By: Chivo Keller on 02-28-2025 MCH (RBC) [Entitic mass] 31.6 pg Normal 27.5-35.2 [facility] Comment on above: Performed By: #### R ENAL, CBC #### [facility] [address] MCHC Auto (RBC) [Mass/Vol]Or dered By: Chivo Keller on 02-28-2025 MCHC (RBC) [Mass/Vol] MCHC [Mass/volume] by Automated count 32.5-35.6 [facility] MCHC (RBC) [Mass/Vol] 33.5 g/dL 32.5-35.6 [facility] MCV Auto (RBC) [Entitic vol] Ordered By: Chivo Keller on 02-28-2025 MCV (RBC) [Entitic vol] MCV [Entitic vol ume] by Automated count 83.5-101 [facility] MCV [Entitic volume] by Auto mated countOrdered By: Chivo Keller on 02-28-2025 MCV (RBC) [Entitic vol] 94.3 fL Normal 83.5-[address] [facility] Comment on above: Performed By: #### R ENAL, CBC #### [facility] [address] Monocytes Auto (Bld) [#/Vol] Ordered By: Chivo Keller on 02-28-2025 Monocytes (Bld) [#/Vol] Automated blood monocyte count 0.0-0.8 [facility] Monocytes [#/volume] in Bloo d by Automated countOrdered By: Chivo Keller on 02-28-2025 Monocytes (Bld) [#/Vol] 0.5 10*3/uL Normal 0.0-0.8 [facility] Comment on above: Performed By: #### R ENAL, CBC #### [facility] [address] [place] [address] [place] Monocytes/100 WBC Auto (Bld) Ordered By: Chivo Keller on 02-28-2025 Monocytes/100 WBC (Bld) Automated monocyte % . [facility] Monocytes/100 leukocytes in Blood by Automated countOrdered By: Chivo Keller on 02-28-2025 Monocytes/100 WBC (Bld) 6.9 % Normal . [facility] Comment on above: Performed By: #### R ENAL, CBC #### [place] [address] [place] Neutrophils Auto (Bld) [#/Vo l]Ordered By: Chivo Keller on 02-28-2025 Neutrophils (Bld) [#/Vol] Neutrophils [#/volume] in Blood by Automated count 1.8-7.7 [facility] Neutrophils [#/volume] in Bl ood by Automated countOrdered By: Chivo Kleler on 02-28-2025 Neutrophils (Bld) [#/Vol] 5.4 10*3/uL Normal 1.8-7.7 [facility] Comment on above: Performed By: #### R ENAL, CBC #### [facility] [address] [place] [address] [place] Neutrophils/100 WBC Auto (Bl d)Ordered By: Chivo Keller on 02-28-2025 Neutrophils/100 WBC (Bld) Automated neut rophil % . [facility] Neutrophils/100 leukocytes i n Blood by Automated countOrdered By: Chivo Keller on 02-28-2025 Neutrophils/100 WBC (Bld) 76.9 % Normal . [facility] Comment on above: Performed By: #### R ENAL, CBC #### [place] [address] [place] Nucleated erythrocytes [Pres ence] in Blood by Automated countOrdered By: Chivo Keller on 02-28-2025 Nucleated RBC Auto Ql (Bld) Nucleated erythrocytes [Presence] in Blood by Automated count 0-0.5 [facility] Nucleated RBC Auto Ql (Bld) 0.0 /100{WBC} 0-0.5 [facility] Platelet mean volume Auto (B ld) [Entitic vol]Ordered By: Chivo Keller on 02-28-2025 Platelet mean volume (Bld) [Entitic vol] Platelet mean volume [Entitic volume] in Blood by Automated count 6.6-10.1 [facility] Platelet mean volume [Entiti c volume] in Blood by Automated countOrdered By: Chivo Keller on 02-28-2025 Platelet mean volume (Bld) [Entitic vol] 7.2 fL Normal 6.6-10.1 [facility] Comment on above: Performed By: #### R ENAL, CBC #### [facility] [address] [place] [address] Platelets Auto (Bld) [#/Vol] Ordered By: Chivo Keller on 02-28-2025 Platelets (Bld) [#/Vol] Platelets [#/vol ume] in Blood by Automated count 150-450 [facility] Platelets [#/volume] in Bloo d by Automated countOrdered By: Chivo Keller on 02-28-2025 Platelets (Bld) [#/Vol] 232 10*3/uL Normal 150-450 [facility] Comment on above: Performed By: #### R ENAL, CBC #### [facility] [address] [place] [address] RBC Auto (Bld) [#/Vol]Ordere d By: Chivo Keller on 02-28-2025 RBC (Bld) [#/Vol] Erythrocytes [#/volume] in Blood by Automated count Low 3.90-5.60 [facility] WBC Auto (Bld) [#/Vol]Ordere d By: Chivo Keller on 02-28-2025 WBC (Bld) [#/Vol] Leukocytes [#/volume] in Blood by Automated count 4.1-10.5 [facility] ERYTHROPOETIN (EPO), SERUMon 02-25-2025 ERYTHROPOETIN (EPO), SERUM 30.4 m[iU]/mL High 2.6 - 18.5 m[iU]/mL [facility] Comment on above: [place] eTelemetry Uni[employer] el DxI 800 Immunoassay System Values obtained with different assay methods or kits cannot be used interchangeably. Results cannot be interpreted as absolute evidence of the presence or absence of malignant disease. Performed at: [address] [id number] Rack Puller: Nathan Munoz PhD, Phone: [phone] Interpretation and review of laboratory results Abnormal [facility] X-ray reportOrdered By: Gianni Scott on 02-25-2025 Study report [facility] XR hip BI w [id number] 02-26-20 XR hip BI w PEL1V [facility] [place] [facility] [place] [address] XRay Report Signed Patient: Delano Ren MR#: [id number] [birth year] : 1940 Acct:[id number] Age/Sex: 84 / M ADM Date: 02/25/25 Loc: [facility] Room: Type: [facility] Attending Dr: Walker Soria MD Copies to: Walker Soria MD Ordering Provider: Walker Soria MD Date of Service: 02/25/25 XR/XR hip BI w PEL1V: 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 COMPARISON: Hip series 01/14/2025 FINDINGS: Right hip hemiarthroplasty without radiographic complication. Mild degenerative changes of the left hip without acute bony process. SI joints demonstrate degenerative change as well as the pubic symphysis. XR/XR hip BI w PEL1V IMPRESSION: NO HARDWARE COMPLICATION. MILD DEGENERATIVE CHANGES OF THE LEFT HIP.. Impression dictated by: Sotero Scott Jr., D.OKeo 02/25/2025 2:31 PM Dictation Location: [place] [address] Transcribed By: [facility] 02/25/25 1431 Dictated By: Sotero Scott Jr, DO 02/25/25 1430 Signed By: 02/25/25 1431 Normal [facility] Alanine aminotransferase [En zymatic activity/volume] in Serum or PlasmaOrdered By: Chivo Keller on 02-24-2025 ALT [Catalytic activity/Vol] Alanine aminotransferase [Enzymatic activity/volume] in Serum or Plasma [facility] ALT [Catalytic activity/Vol] 10 U/L Normal [facility] Comment on above: Order Comment: STAT FOR CT Performed By: #### F E and TIBC, TONY, CMP, [id number] ####[place] [address] [place] [address] [facility] Albumin [Mass/volume] in Ser um or Plasma by Bromocresol green (BCG) dye binding methoOrdered By: Chivo Keller on 02-24-2025 Albumin BCG dye [Mass/Vol] Albumin [Mass/volume] in Serum or Plasma by Bromocresol green (BCG) dye binding metho 3.5-5.7 [facility] Albumin BCG dye [Mass/Vol] 4.1 g/dL 3.5-5.7 [facility] Alkaline phosphatase [Enzyma tic activity/volume] in Serum or PlasmaOrdered By: Chivo Keller on 02-24-2025 ALP [Catalytic activity/Vol] Alkaline phosphatase [Enzymatic activity/volume] in Serum or Plasma High 34-104 [facility] ALP [Catalytic activity/Vol] 125 U/L High 34-104 [facility] Comment on above: Order Comment: STAT FOR CT Performed By: #### F E and TIBC, TONY, CMP, [id number] ####[facility] [place] [address] [facility] Aspartate aminotransferase [ Enzymatic activity/volume] in Serum or PlasmaOrdered By: Chivo Keller on 02-24-2025 AST [Catalytic activity/Vol] Aspartate aminotransferase [Enzymatic activity/volume] in Serum or Plasma [facility] AST [Catalytic activity/Vol] 17 U/L Normal [facility] Comment on above: Order Comment: STAT FOR CT Performed By: #### F E and TIBC, TONY, CMP, [id number] ####[facility] [id number] [place] [id number] [facility] Bilirubin.total [Mass/volume ] in Serum or PlasmaOrdered By: Chivo Keller on 02-24-2025 Bilirubin [Mass/Vol] Bilirubin.total [Mass/volume] in Serum or Plasma 0.3-1.0 [facility] Bilirubin [Mass/Vol] 0.5 mg/dL Normal 0.3-1.0 [facility] Comment on above: Order Comment: STAT FOR CT Performed By: #### F E and TIBC, TONY, CMP, [id number] ####[facility] [id number] [place] [id number] [facility] CARCINOEMBRYONIC ANTIGENon 0 02-24-2025 Interpretation and review of laboratory results Abnormal [facility] CEA ser/plasOrdered By: Samir Keller on 02-24-2025 Carcinoembryonic Ag [Mass/Vol] Serum or plasma carcinoembryonic antigen measurement (mass/volume) High 0.0-3.[address] [facility] [address] abdomen pelvis wo conon 0 02-24-2025 CT abdomen pelvis wo con [facility] [place] [address] CT Scan Report Signed Patient: Delano Ren MR#: [id number] [birth year] : 1940 Acct:[id number] Age/Sex: 84 / M ADM Date: 02/24/25 Loc: Room: Type: [facility] Attending Dr: Chivo Keller II DO Copies to: Chivo Keller II, DO Ordering Provider: Chivo Keller II, DO Date of Service: 02/24/25 CT/CT chest wo con: D50.9 - Iron deficiency anemia, unspecified ([id number]) CT/CT abdomen pelvis wo con: D50.9 - [...] technique. FINDINGS: CT chest: Mediastinum:Pacemake r device in place. Thoracic aorta appears normal [...] the patient's right hip prosthesis limits evaluation.] Peritoneum/Retroperi toneum:No free air or free fluid or lymphadenopathy.[ Abd wall/Bones:No acute findings. Osseous structures demonstrate degenerative change.[ CT/CT chest wo con IMPRESSION: No CT evidence of progression disease seen within the chest, abdomen or pelvis. Impression dictated by: Sotero Scott Jr., D.O. 02/24/2025 11:32 AM Dictation Location: [place] [address] Transcribed By: [facility] 02/24/25 1132 Dictated By: Sotero Scott Jr, DO 02/24/25 1125 Signed By: 02/24/25 1132 Normal [facility] Calcium [Mass/volume] in Ser um or PlasmaOrdered By: Chivo Keller on 02-24-2025 Calcium [Mass/Vol] Calcium [Mass/volume] in Serum or Plasma 8.6-10.3 [facility] Calcium [Mass/Vol] 9.3 mg/dL Normal 8.6-10.3 [facility] Comment on above: Order Comment: STAT FOR CT Performed By: #### F E and TIBC, TONY, CMP, [id number] ####[address] Carbon dioxide, total [Moles /volume] in Serum or PlasmaOrdered By: Chivo Keller on 02-24-2025 CO2 [Moles/Vol] Carbon dioxide, total [Moles/volume] in Serum or Plasma High 21.0-31.0 [facility] CO2 [Moles/Vol] 31.7 mmol/L High 21.0-31.0 [facility] Comment on above: Order Comment: STAT FOR CT Performed By: #### F E and TIBC, TONY, CMP, [id number] ####[address] Chloride [Moles/volume] in S alayna or PlasmaOrdered By: Chivo Keller on 02-24-2025 Chloride [Moles/Vol] Chloride [Moles/volume] in Serum or Plasma 98-107 [facility] Chloride [Moles/Vol] 105 mmol/L Normal 98-107 [facility] Comment on above: Order Comment: STAT FOR CT Performed By: #### F E and TIBC, TONY, CMP, [id number] ####[address] Comprehensive Metabolic Pane vijay 02-24-2025 Albumin [Mass/Vol] 4.1 g/dL Normal 3.5-5.7 [facility] Comment on above: Order Comment: STAT FOR CT Performed By: #### F E and TIBC, TONY, CMP, [id number] ####[address] Creatinine Clr Calc Pharmacy 31.32 Normal [facility] Comment on above: Order Comment: STAT FOR CT Performed By: #### F E and TIBC, TONY, CMP, [id number] ####[address] Estimated GFR 29.659 mL/Min Normal [facility] Comment on above: Order Comment: STAT FOR CT Performed By: #### F E and TIBC, TONY, CMP, [id number] ####[place] [address] [address] Creatinine [Mass/volume] in Serum or PlasmaOrdered By: Chivo Keller on 02-24-2025 Creatinine [Mass/Vol] Creatinine [Mass/volume] in Serum or Plasma High 0.70-1.30 [facility] Creatinine [Mass/Vol] 2.17 mg/dL High 0.70-1.30 [facility] Comment on above: Order Comment: STAT FOR CT Performed By: #### F E and TIBC, TONY, CMP, [id number] ####[address] Erythropoetin (EPO), Serumon 02-24-2025 Erythropoetin (EPO), Serum 30.4 m[iU]/mL High 2.6-18.5 [facility] Comment on above: Result Comment: [employer] UniCel DxI 800 Immunoassay System Values obtained with different assay methods or kits cannot be used interchangeably. Results cannot be interpreted as absolute evidence of the presence or absence of malignant disease. Performed at: [address] [id number] Rack Puller: Nathan Munoz PhD, Phone: [phone] PERFORMED BY: [place] [address] PATHOLOGIST PIPE CONNECTOR KRISTEL LU M.D. Performed By: #### R ENAL, CBC #### [facility] [address] [place] [address] Ferritin [Mass/volume] in Se rum or PlasmaOrdered By: Chivo Keller on 02-24-2025 Ferritin [Mass/Vol] Ferritin [Mass/volume] in Serum or Plasma High 23.9-336.2 [facility] Ferritin [Mass/Vol] 512.8 ng/mL High 23.9-336.2 [facility] Comment on above: Order Comment: STAT FOR CT Performed By: #### F E and TIBC, TONY, CMP, [id number] ####[facility] [id number] [place] [address] [facility] Folate [Mass/volume] in Seru m or PlasmaOrdered By: Chivo Keller on 02-24-2025 Folate [Mass/Vol] Folate [Mass/volume] in Serum or Plasma >5.9 [facility] Folate [Mass/Vol] 31.0 ng/mL >5.9 [facility] Comment on above: Folate reference ran ge: >5.9 ng/mlThe WHO technical consultation on folate and vitamin [id number] has determined that folate concentrations lessthan 4 ng/ml are considered deficient. Globulin Calc (S) [Mass/Vol] Ordered By: Chivo Keller on 02-24-2025 Globulin (S) [Mass/Vol] Serum globulin measurement by calculation (mass/volume) [facility] Glucose [Mass/volume] in Ser um or PlasmaOrdered By: Chivo Keller on 02-24-2025 Glucose [Mass/Vol] Glucose [Mass/volume] in Serum or Plasma High 70-100 [facility] Glucose [Mass/Vol] 122 mg/dL High 70-100 [facility] Comment on above: ADA recommended refe rence rangeRandom Glucose Reference Range is dependent on time and content of last meal. Glucose of more than 200 mg/dL in a nonstressed, ambulatory subject supports the diagnosis of Diabetes Mellitus. Order Comment: STAT FOR CT Result Comment: [place] om Glucose Reference Range is dependent on time and content of last meal. Glucose of more than 200 mg/dL in a nonstressed, ambulatory subject supports the diagnosis of Diabetes Mellitus. ADA recommended reference range Performed By: #### F E and TIBC, TONY, CMP, [id number] ####[facility] [address] [place] [address] [facility] Iron [Mass/volume] in Serum or PlasmaOrdered By: Chivo Keller on 02-24-2025 Iron [Mass/Vol] Iron [Mass/volume] in Serum or Plasma 50-212 [facility] Iron [Mass/Vol] 52 ug/dL Normal 50-212 [facility] Comment on above: Order Comment: STAT FOR CT Performed By: #### F E and TIBC, TONY, CMP, [id number] ####[address] Iron and TIBC Profileon 02-13 % Iron Saturation 19.5 % Low 20-50 [facility] Comment on above: Order Comment: STAT FOR CT Performed By: #### F E and TIBC, TONY, CMP, [id number] ####[address] Total Iron Binding Capacity 267 ug/dL Normal 255-450 [facility] Comment on above: Order Comment: STAT FOR CT Performed By: #### F E and TIBC, TONY, CMP, [id number] ####[address] No Panel InformationOrdered By: Chivo Keller on 02-24-2025 Estimated GFR (CKD-EPI) 29.659 mL/Min [facility] Creatinine Clearance (Chem 31.32 [facility] 29.659 mL/Min [facility] 31.32 [facility] Potassium [Moles/volume] in Serum or PlasmaOrdered By: Chivo Keller on 02-24-2025 Potassium [Moles/Vol] Potassium [Moles/volume] in Serum or Plasma 3.5-5.1 [facility] Potassium [Moles/Vol] 4.0 mmol/L Normal 3.5-5.1 [facility] Comment on above: Order Comment: STAT FOR CT Performed By: #### F E and TIBC, TONY, CMP, [id number] ####[place] [id number] [facility] Protein [Mass/volume] in Ser um or PlasmaOrdered By: Chivo Keller on 02-24-2025 Protein [Mass/Vol] Protein [Mass/volume] in Serum or Plasma 6.4-8.9 [facility] Protein [Mass/Vol] 7.0 g/dL Normal 6.4-8.9 [facility] Comment on above: Order Comment: STAT FOR CT Performed By: #### F E and TIBC, TONY, CMP, [id number] ####[facility] [address] Serum globulin measurement b y calculation (mass/volume)Ordered By: Chivo Keller on 02-24-2025 Globulin (S) [Mass/Vol] 2.9 g/dL Normal [facility] Comment on above: Order Comment: STAT FOR CT Performed By: #### F E and TIBC, TONY, CMP, [id number] ####[facility] [address] [place] [id number] [facility] Serum or plasma albumin/glob ulin mass ratioOrdered By: Chivo Keller on 02-24-2025 Albumin/Globulin [Mass ratio] Serum or plasma albumin/globulin mass ratio [facility] Albumin/Globulin [Mass ratio] 1.4 {ratio} Normal [facility] Comment on above: Order Comment: STAT FOR CT Performed By: #### F E and TIBC, TONY, CMP, [id number] ####[place] [address] [address] Serum or plasma anion gap de terminationOrdered By: Chivo Keller on 02-24-2025 Anion gap [Moles/Vol] Serum or plasma anion gap determination 6.0-15.0 [facility] Anion gap [Moles/Vol] 10.3 mmol/L Normal 6.0-15.0 [facility] Comment on above: Order Comment: STAT FOR CT Performed By: #### F E and TIBC, TONY, CMP, [id number] ####[facility] [address] [place] [id number] [facility] Serum or plasma erythropoiet in (EPO) measurement (units/volume)Ordered By: Chivo Keller on 02-24-2025 Erythropoietin (EPO) Qn Serum or plasma erythropoietin (EPO) measurement (units/volume) High 2.6-18.5 [facility] Erythropoietin (EPO) Qn 30.4 mIU/mL High 2.6-18.5 [facility] Comment on above: [employer] Uni[employer] el DxI 800 Immunoassay SystemValues obtained with different assay methods or kits cannotbe used interchangeably. Results cannot be interpreted asabsolute evidence of the presence or absence of malignantdisease.Performed at: [facility] [id number] Director: Nathan Munoz PhD, Phone: [phone] Serum or plasma iron binding capacity measurement (mass/volume)Ordered By: Chivo Keller on 02-24-2025 Iron binding capacity [Mass/Vol] Iron binding capacity [Mass/volume] in Serum or Plasma 255-450 [facility] Iron binding capacity [Mass/Vol] 267 ug/dL 255-450 [facility] Serum or plasma iron saturat ion measurement (mass fraction)Ordered By: Chivo Keller on 02-24-2025 Iron saturation [Mass fraction] Iron saturation [Mass Fraction] in Serum or Plasma Low 20-50 [facility] Iron saturation [Mass fraction] 19.5 % Low 20-50 [facility] Sodium [Moles/volume] in Ser um or PlasmaOrdered By: Chivo Keller on 02-24-2025 Sodium [Moles/Vol] Sodium [Moles/volume] in Serum or Plasma 136-145 [facility] Sodium [Moles/Vol] 143 mmol/L Normal 136-145 [facility] Comment on above: Order Comment: STAT FOR CT Performed By: #### F E and TIBC, TONY, CMP, [id number] ####[facility] [address] [place] [id number] [place] Transferrin [Mass/volume] in Serum or PlasmaOrdered By: Chivo Keller on 02-24-2025 Transferrin [Mass/Vol] Transferrin [Mass/volume] in Serum or Plasma Low 203-362 [facility] Transferrin [Mass/Vol] 191 mg/dL Low 203-362 [facility] Comment on above: Order Comment: STAT FOR CT Performed By: #### F E and TIBC, TONY, CMP, [id number] ####[facility] [address] [place] [address] [place] Urea nitrogen [Mass/volume] in Serum or PlasmaOrdered By: Chivo Keller on 02-24-2025 Urea nitrogen [Mass/Vol] Urea nitrogen [Mass/volume] in Serum or Plasma High 7-25 [facility] Urea nitrogen [Mass/Vol] 43 mg/dL High 7-25 [facility] Comment on above: Order Comment: STAT FOR CT Performed By: #### F E and TIBC, TONY, CMP, [id number] ####[facility] [place] [address] [facility] Vit. B12/Folate Profileon Folate 31.0 ng/mL Normal >5.9 [facility] Comment on above: Order Comment: STAT FOR CT Result Comment: Echo te reference range: >5.9 ng/ml The WHO technical consultation on folate and vitamin b12 deficiencies has determined that folate concentrations less than 4 ng/ml are considered deficient. PERFORMED BY: [facility] [address] [place] [id number] PATHOLOGIST PIPE CONNECTOR KRISTEL LU M.D. Performed By: #### F E and TIBC, TONY, CMP, [id number] ####[place] [address] [place] [address] [facility] Vitamin B12 ser/plasOrdered By: Chivo Keller on 02-24-2025 Cobalamin (Vitamin B12) [Mass/Vol] Vitamin B12 ser/plas 180-914 [facility] Cobalamin (Vitamin B12) [Mass/Vol] 445 pg/mL Normal 180-914 [facility] Comment on above: Order Comment: STAT FOR CT Performed By: #### F E and TIBC, TONY, CMP, [id number] ####[facility] [place] [address] [facility] Cholesterol in LDL Calc [Mas s/Vol]on 02-20-2025 Cholesterol in LDL [Mass/Vol] Cholesterol in LDL [Mass/volume] in Serum or Plasma by calculation [facility] Cholesterol in LDL [Mass/Vol] 74.2 mg/dL [facility] Comment on above: <100 mg/dl [id number] 0-129 mg/dl NEAR OR ABOVE [id number] mg/dl BORDERLINE [id number] mg/dl HIGH>190 mg/dl VERY HIGH Cholesterol in VLDL Calc [Ma ss/Vol]on 02-20-2025 Cholesterol in VLDL [Mass/Vol] Cholesterol in VLDL [Mass/volume] in Serum or Plasma by calculation [facility] Cholesterol in VLDL [Mass/Vol] 13.8 mg/dL [facility] Glucose mean value [Mass/vol ume] in Blood Estimated from glycated hemoglobinon 02-20-2025 Average glucose Estimated from glycated hemoglobin (Bld) [Mass/Vol] Glucose mean value [Mass/volume] in Blood Estimated from glycated hemoglobin [facility] Average glucose Estimated from glycated hemoglobin (Bld) [Mass/Vol] 126 mg/dL [facility] Hemoglobin A1c percentageon 02-20-2025 HbA1c (Bld) [Mass fraction] Hemoglobin A1c percentage 4.5-6.2 [facility] HbA1c (Bld) [Mass fraction] 6.0 % 4.5-6.2 [facility] Comment on above: ADA RECOMMENDED LIMI T 4.0 - 6.0ADA THERAPEUTIC TARGET < 7.0ACTION SUGGESTED> 7.0 Laboratory - Chemistry and C hemistry - challengeon 02-20-2025 Cholesterol [Mass/Vol] 135 mg/dL <=200 [facility] Cholesterol in HDL [Mass/Vol] 47 mg/dL 40-60 [facility] Comment on above: > or =60 mg/dl - LOW CARDIOVASCULAR RISK<40 mg/dl - HIGH CARDIOVASCULAR RISK Free T4 [Mass/Vol] 0.83 ng/dL 0.76-1.46 [facility] Triglyceride [Mass/Vol] 69 mg/dL <=[address] [facility] TSH Qn 19.694 m[IU]/L High 0.358-3.740 [facility] No Panel Informationon 02-20 Prostate Specific Antigen Screen 0.98 ng/mL <=4.00 [facility] Total Triiodothyronine 63 ng/dL Abnormal 71-180 [facility] Comment on above: Performed at: - [address] [id number] Director: Nathan Munoz PhD, Phone: [phone] 63 ng/dL Abnormal 71-180 [facility] 0.83 ng/dL 0.76-1.46 [facility] 0.98 ng/mL <=4.00 [facility] 19.694 u[iU]/mL High 0.358-3.740 [facility] 135 mg/dL <=200 [facility] 47 mg/dL 40-60 [facility] 69 mg/dL <=150 [facility] Serum or plasma total choles terol/high density lipoprotein (HDL) cholesterol mass ernesto 02-20-2025 Cholesterol.total/Cholest vito in HDL [Mass ratio] Serum or plasma total cholesterol/high density lipoprotein (HDL) cholesterol mass rat [facility] Cholesterol.total/Cholest vito in HDL [Mass ratio] 2.9 {ratio} [facility] Comment on above: 3.3 - 4.4 LOW RISK4. 4 - 7.1 AVERAGE RISK7.1 - 11.0 MODERATE RISK>11.0 HIGH RISK 29on 02-14-2025 29 Addended by: RUSSEL LYNCH on: 02/14/2025 03:45 PM Modules accepted: Orders [facility] Documentationon 02-14-2025 Documentation [id number] Delano Ren 1940 M Provider Department Center 02/14/2025 ENRRIQUE TAVAREZ Family History Problem Relation Age of Onset Diabetes Mother Heart disease Father Glaucoma Brother Diabetes Maternal Grandmother Clotting disorder Other Family Status - Relation Status Age at Mother Father Brother Maternal Grandmother Other Reason for Visit and Comments: Hypertension [187101] [facility] 36on 01-29-2025 36 Please call patient the week of 02/11/25 for a BP check. Thanks! [facility] Telephoneon 01-29-2025 Telephone [id number] Delano Ren 1940 M Date Provider Department Center 01/29/2025 ENRRIQUE TAVAREZ Family History Problem Relation Age of Onset Diabetes Mother Heart disease Father Glaucoma Brother Diabetes Maternal Grandmother Clotting disorder Other Family Status - Relation Status Age at Mother Father Brother Maternal Grandmother Other [facility] Office Visiton 01-28-2025 Follow-up visit [id number] Delano Ren 1940 M Date Provider Department Center 01/28/2025 ENRRIQUE TAVAREZ [facility] Family History Problem Relation Age of Onset Diabetes Mother Heart disease Father Glaucoma Brother Diabetes Maternal Grandmother Clotting disorder Other Family Status - Relation Status Age at Mother Father Brother Maternal Grandmother Other Level of Service:[address] [place] OFFICE/OUTPATIENT ESTABLISHED MOD MDM 30 MIN Reason for Visit and Comments: Atrial Fibrillation [80] Congestive Heart Failure [127] Hypertension [405822] Normal [facility] Albumin [Mass/volume] in Ser um or Plasma by Bromocresol green (BCG) dye binding methoOrdered By: Sotero Black on 01-16-2025 Albumin BCG dye [Mass/Vol] Albumin [Mass/volume] in Serum or Plasma by Bromocresol green (BCG) dye binding metho 3.5-5.7 [facility] Basophils Auto (Bld) [#/Vol] Ordered By: Sotero Black on 01-16-2025 Basophils (Bld) [#/Vol] Automated basoph il count 0.0-0.2 [facility] Basophils/100 WBC Auto (Bld) Ordered By: Sotero Black on 01-16-2025 Basophils/100 WBC (Bld) Automated basophil % . [facility] Calcium [Mass/volume] in Ser um or PlasmaOrdered By: Sotero Black on 01-16-2025 Calcium [Mass/Vol] Calcium [Mass/volume] in Serum or Plasma Low 8.6-10.3 [facility] Carbon dioxide, total [Moles /volume] in Serum or PlasmaOrdered By: Sotero Black on 01-16-2025 CO2 [Moles/Vol] Carbon dioxide, total [Moles/volume] in Serum or Plasma 21.0-31.0 [facility] Chloride [Moles/volume] in S alayna or PlasmaOrdered By: Sotero Black on 01-16-2025 Chloride [Moles/Vol] Chloride [Moles/volume] in Serum or Plasma 98-107 [facility] Complete Blood Count Auto Di ffon 01-16-2025 Basophils (Bld) [#/Vol] 0.1 10*3/uL Normal 0.0-0.2 [facility] Comment on above: Order Comment: Comme nt results to PCP Dr Linda and [facility] Result Comment: PERF ORMED BY: [place] [address] PATHOLOGIST PIPE CONNECTOR KRISTEL LU M.D. Performed By: #### R ENAL, CBC #### [address] Basophils/100 WBC (Bld) 2.2 % Normal . [facility] Comment on above: Order Comment: Comme nt results to PCP Dr Linda and [facility] Performed By: #### R ENAL, CBC #### [address] Eosinophils (Bld) [#/Vol] 0.2 10*3/uL Normal 0.0-0.45 [facility] Comment on above: Order Comment: Comme nt results to PCP Dr Lnida and [facility] Performed By: #### R ENAL, CBC #### [address] Eosinophils/100 WBC (Bld) 2.8 % Normal . [facility] Comment on above: Order Comment: Comme nt results to PCP Dr Linda and [facility] Performed By: #### R ENAL, CBC #### [address] Erythrocyte distribution width (RBC) [Ratio] 14.7 % Normal 12.0-14.8 [facility] Comment on above: Order Comment: Comme nt results to PCP Dr Linda and [facility] Performed By: #### R ENAL, CBC #### [address] Hematocrit (Bld) [Volume fraction] 28.3 % Low 38.8-50.0 [facility] Comment on above: Order Comment: Comme nt results to PCP Dr Linda and [facility] Nephro Performed By: #### R ENAL, CBC #### [address] Hemoglobin (Bld) [Mass/Vol] 9.7 g/dL Low 13.0-17.0 [facility] Comment on above: Order Comment: Comme nt results to PCP Dr Linda and [facility]ph[facility] Performed By: #### R ENAL, CBC #### [address] Lymphocytes (Bld) [#/Vol] 1.2 10*3/uL Normal 1.00-4.8 [facility] Comment on above: Order Comment: Comme nt results to PCP Dr Linda and [facility] Nephro Performed By: #### R ENAL, CBC #### [address] Lymphocytes/100 WBC (Bld) 18.7 % Normal . [facility] Comment on above: Order Comment: Comme nt results to PCP Dr Linda and [facility] Nephro Performed By: #### R ENAL, CBC #### [address] MCH (RBC) [Entitic mass] 32.4 pg Normal 27.5-35.2 [facility] Comment on above: Order Comment: Comme nt results to PCP Dr Linda and [facility] Nephro Performed By: #### R ENAL, CBC #### [address] MCV (RBC) [Entitic vol] 94.1 fL Normal 83.5-101 [facility] Comment on above: Order Comment: Comme nt results to PCP Dr Linda and [facility] Nephro Performed By: #### R ENAL, CBC #### [address] Mean Corpuscular HGB Conc 34.4 g/dL Normal 32.5-35.6 [facility] Comment on above: Order Comment: Comme nt results to PCP Dr Linda and [facility] Nephro Performed By: #### R ENAL, CBC #### [address] Monocytes (Bld) [#/Vol] 0.6 10*3/uL Normal 0.0-0.8 [facility] Comment on above: Order Comment: Comme nt results to PCP Dr Linda and [facility] Nephro Performed By: #### R ENAL, CBC #### [address] Monocytes/100 WBC (Bld) 9.4 % Normal . [facility] Comment on above: Order Comment: Comme nt results to PCP Dr Linda and [facility] Nephro Performed By: #### R ENAL, CBC #### [address] Neutrophils (Bld) [#/Vol] 4.2 10*3/uL Normal 1.8-7.7 [facility] Comment on above: Order Comment: Comme nt results to PCP Dr Linda and [facility] Nephro Performed By: #### R ENAL, CBC #### [address] Neutrophils/100 WBC (Bld) 66.9 % Normal . [facility] Comment on above: Order Comment: Comme nt results to PCP Dr Linda and [facility] Nephro Performed By: #### R ENAL, CBC #### [address] NRBC% 0.1 /100{WBC} Normal 0-0.5 [facility] Comment on above: Order Comment: Comme nt results to PCP Dr Linda and [facility] Ne[facility]ro Performed By: #### R ENAL, CBC #### [address] Platelet mean volume (Bld) [Entitic vol] 7.7 fL Normal 6.6-10.1 [facility] Comment on above: Order Comment: Comme nt results to PCP Dr Linda and [facility] Performed By: #### R ENAL, CBC #### [place] [address] [place] Platelets (Bld) [#/Vol] 287 10*3/uL Normal 150-450 [facility] Comment on above: Order Comment: Comme nt results to PCP Dr Linda and [facility] Ne[facility]ro Performed By: #### R ENAL, CBC #### [facility] [address] RBC (Bld) [#/Vol] 3.01 10*6/uL Low 3.90-5.60 [facility] Comment on above: Order Comment: Comme nt results to PCP Dr Linda and [facility] Nephro Performed By: #### R ENAL, CBC #### [facility] [address] WBC (Bld) [#/Vol] 6.2 10*3/uL Normal 4.1-10.5 [facility] Comment on above: Order Comment: Comme nt results to PCP Dr Linda and [facility] Nephro Performed By: #### R ENAL, CBC #### [facility] [address] Creatinine [Mass/volume] in Serum or PlasmaOrdered By: Sotero Black on 01-16-2025 Creatinine [Mass/Vol] Creatinine [Mass/volume] in Serum or Plasma High 0.70-1.30 [facility] Eosinophils Auto (Bld) [#/Vo l]Ordered By: Sotero Black on 01-16-2025 Eosinophils (Bld) [#/Vol] Automated eosi nophil count 0.0-0.45 [facility] Eosinophils/100 WBC Auto (Bl d)Ordered By: Sotero Black on 01-16-2025 Eosinophils/100 WBC (Bld) Automated eosi nophil % . [facility] Erythrocyte distribution wid th Auto (RBC) [Ratio]Ordered By: Sotero Black on 01-16-2025 Erythrocyte distribution width (RBC) [Ratio] Erythrocyte distribution width [Ratio] by Automated count 12.0-14.8 [facility] Glucose [Mass/volume] in Ser um or PlasmaOrdered By: Sotero Black on 01-16-2025 Glucose [Mass/Vol] Glucose [Mass/volume] in Serum or Plasma High 70-100 [facility] Hematocrit Auto (Bld) [Volum e fraction]Ordered By: Sotero Black on 01-16-2025 Hematocrit (Bld) [Volume fraction] Hematocrit [Volume Fraction] of Blood by Automated count Low 38.8-50.0 [facility] Hemoglobin [Mass/volume] in BloodOrdered By: Sotero Black on 01-16-2025 Hemoglobin (Bld) [Mass/Vol] Hemoglobin [Mass/volume] in Blood Low 13.0-17.0 [facility] Leukocytes [#/volume] correc bonnie for nucleated erythrocytes in Blood by Automated counOrdered By: Sotero Black on 01-16-2025 WBC corrected for nucl RBC Auto (Bld) [#/Vol] Leukocytes [#/volume] corrected for nucleated erythrocytes in Blood by Automated coun 4.1-10.5 [facility] Lymphocytes Auto (Bld) [#/Vo l]Ordered By: Sotero Black on 01-16-2025 Lymphocytes (Bld) [#/Vol] Lymphocytes [#/volume] in Blood by Automated count 1.00-4.8 [facility] Lymphocytes/100 WBC Auto (Bl d)Ordered By: Sotero Black on 01-16-2025 Lymphocytes/100 WBC (Bld) Lymphocytes/10 0 leukocytes in Blood by Automated count . [facility] MCH Auto (RBC) [Entitic mass ]Ordered By: Sotero Black on 01-16-2025 MCH (RBC) [Entitic mass] MCH [Entitic ma ss] by Automated count 27.5-35.2 [facility] MCHC Auto (RBC) [Mass/Vol]Or dered By: Sotero Black on 01-16-2025 MCHC (RBC) [Mass/Vol] MCHC [Mass/volume] by Automated count 32.5-35.6 [facility] MCV Auto (RBC) [Entitic vol] Ordered By: Sotero Black on 01-16-2025 MCV (RBC) [Entitic vol] MCV [Entitic vol ume] by Automated count 83.5-101 [facility] Monocytes Auto (Bld) [#/Vol] Ordered By: Sotero Black on 01-16-2025 Monocytes (Bld) [#/Vol] Automated blood monocyte count 0.0-0.8 [facility] Monocytes/100 WBC Auto (Bld) Ordered By: Sotero Black on 01-16-2025 Monocytes/100 WBC (Bld) Automated monocyte % . [facility] Neutrophils Auto (Bld) [#/Vo l]Ordered By: Sotero Black on 01-16-2025 Neutrophils (Bld) [#/Vol] Neutrophils [#/volume] in Blood by Automated count 1.8-7.7 [facility] Neutrophils/100 WBC Auto (Bl d)Ordered By: Sotero Black on 01-16-2025 Neutrophils/100 WBC (Bld) Automated neut rophil % . [facility] No Panel InformationOrdered By: Sotero Black on 01-16-2025 24.209 mL/Min [facility] N/A [facility] Nucleated erythrocytes [Pres ence] in Blood by Automated countOrdered By: Sotero Black on 01-16-2025 Nucleated RBC Auto Ql (Bld) Nucleated erythrocytes [Presence] in Blood by Automated count 0-0.5 [facility] Phosphate [Mass/volume] in S alayna or PlasmaOrdered By: Sotero Black on 01-16-2025 Phosphate [Mass/Vol] Phosphate [Mass/volume] in Serum or Plasma 2.5-4.5 [facility] Platelet mean volume Auto (B ld) [Entitic vol]Ordered By: Sotero Black on 01-16-2025 Platelet mean volume (Bld) [Entitic vol] Platelet mean volume [Entitic volume] in Blood by Automated count 6.6-10.1 [facility] Platelets Auto (Bld) [#/Vol] Ordered By: Sotero Black on 01-16-2025 Platelets (Bld) [#/Vol] Platelets [#/vol ume] in Blood by Automated count 150-450 [facility] Potassium [Moles/volume] in Serum or PlasmaOrdered By: Sotero Black on 01-16-2025 Potassium [Moles/Vol] Potassium [Moles/volume] in Serum or Plasma 3.5-5.1 [facility] RBC Auto (Bld) [#/Vol]Ordere d By: Sotero Black on 01-16-2025 RBC (Bld) [#/Vol] Erythrocytes [#/volume] in Blood by Automated count Low 3.90-5.60 [facility] Renal Function Panelon 01-16 Albumin [Mass/Vol] 3.7 g/dL Normal 3.5-5.7 [facility] Comment on above: Order Comment: Comme nt results to PCP Dr Linda and [facility]phro Result Comment: PERF ORMED BY: [place] [address] PATHOLOGIST PIPE CONNECTOR KRISTEL LU M.D. Performed By: #### R ENAL, CBC #### [address] Anion gap [Moles/Vol] 12.3 mmol/L Normal 6.0-15.0 [facility] Comment on above: Order Comment: Comme nt results to PCP Dr Linda and [facility] Nephro Performed By: #### R ENAL, CBC #### [address] Calcium [Mass/Vol] 7.8 mg/dL Low 8.6-10.3 [facility] Comment on above: Order Comment: Comme nt results to PCP Dr Linda and [facility] Nephro Performed By: #### R ENAL, CBC #### [address] Chloride [Moles/Vol] 104 mmol/L Normal 98-107 [facility] Comment on above: Order Comment: Comme nt results to PCP Dr Linda and [facility] Nephro Performed By: #### R ENAL, CBC #### [address] CO2 [Moles/Vol] 28.6 mmol/L Normal 21.0-31.0 [facility] Comment on above: Order Comment: Comme nt results to PCP Dr Linda and [facility] Nephro Performed By: #### R ENAL, CBC #### [place] [address] [place] Creatinine [Mass/Vol] 2.57 mg/dL High 0.70-1.30 [facility] Comment on above: Order Comment: Comme nt results to PCP Dr Linda and [facility] Nephro Performed By: #### R ENAL, CBC #### [address] Estimated GFR 24.209 mL/Min Normal [facility] Comment on above: Order Comment: Comme nt results to PCP Dr Linda and [facility] Nephro Performed By: #### R ENAL, CBC #### [facility] [address] Glucose [Mass/Vol] 117 mg/dL High 70-100 [facility] Comment on above: Order Comment: Comme nt results to PCP Dr Linda and [facility] Nephro Result Comment: [place] om Glucose Reference Range is dependent on time and content of last meal. Glucose of more than 200 mg/dL in a nonstressed, ambulatory subject supports the diagnosis of Diabetes Mellitus. ADA recommended reference range Performed By: #### R ENAL, CBC #### [facility] [address] [place] [address] [place] Phosphate [Mass/Vol] 3.5 mg/dL Normal 2.5-4.5 [facility] Comment on above: Order Comment: Comme nt results to PCP Dr Linda and [facility] Nephro Performed By: #### R ENAL, CBC #### [facility] [address] [place] [address] [place] Potassium [Moles/Vol] 3.9 mmol/L Normal 3.5-5.1 [facility] Comment on above: Order Comment: Comme nt results to PCP Dr Linda and [facility] Nephro Performed By: #### R ENAL, CBC #### [facility] [address] [place] [id number] [place] Sodium [Moles/Vol] 141 mmol/L Normal 136-145 [facility] Comment on above: Order Comment: Comme nt results to PCP Dr Linda and [facility] Nephro Performed By: #### R ENAL, CBC #### [facility] [address] [place] [id number] [place] Urea nitrogen [Mass/Vol] 45 mg/dL High 7-25 [facility] Comment on above: Order Comment: Comme nt results to PCP Dr Linda and [facility] Nephro Performed By: #### R ENAL, CBC #### [facility] [address] [place] [address] [place] Serum or plasma anion gap de terminationOrdered By: Sotero Black on 01-16-2025 Anion gap [Moles/Vol] Serum or plasma anion gap determination 6.0-15.0 [facility] Sodium [Moles/volume] in Ser um or PlasmaOrdered By: Sotero Black on 01-16-2025 Sodium [Moles/Vol] Sodium [Moles/volume] in Serum or Plasma 136-145 [facility] Urea nitrogen [Mass/volume] in Serum or PlasmaOrdered By: Sotero Black on 01-16-2025 Urea nitrogen [Mass/Vol] Urea nitrogen [Mass/volume] in Serum or Plasma High 7-25 [facility] WBC Auto (Bld) [#/Vol]Ordere d By: Sotero Black on 01-16-2025 WBC (Bld) [#/Vol] Leukocytes [#/volume] in Blood by Automated count 4.1-10.5 [facility] X-ray reportOrdered By: Gianni Scott on 01-14-2025 Study report [facility] XR hip RT min 2V(w/wo pelvis )*on 01-14-2025 XR hip RT min 2V(w/wo pelvis)* [facility] [address] [place] [address] XRay Report Signed Patient: Delano Ren MR#: [id number] [birth year] : 1940 Acct:[id number] Age/Sex: 84 / M ADM Date: 01/14/25 Loc: [facility] Room: Type: [facility] Attending Dr: Walker Soria MD Copies to: Walker Soria MD Ordering Provider: Walker Soria MD Date of Service: 01/14/25 XR/XR hip RT min 2V(w/wo pelvis)*: 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 No acute bony process. Mild degenerative changes left hip. XR/XR hip RT min 2V(w/wo pelvis)* IMPRESSION: NO HARDWARE COMPLICATION.. Impression dictated by: Sotero Scott Jr., D.OKeo01/14/2025 3:42 PM Dictation Location: [place] [address] Transcribed By: CALI 01/14/251541 Dictated By: Sotero Scott Jr, DO 01/14/25 154 Signed By: 01/14/25 154 Normal [facility] Albumin [Mass/volume] in Ser um or Plasma by Bromocresol green (BCG) dye binding methoOrdered By: Sotero Black on 01-10-2025 Albumin BCG dye [Mass/Vol] Albumin [Mass/volume] in Serum or Plasma by Bromocresol green (BCG) dye binding metho Low 3.5-5.7 [facility] Basophils Auto (Bld) [#/Vol] Ordered By: Sotero Black on 01-10-2025 Basophils (Bld) [#/Vol] Automated basoph il count 0.0-0.2 [facility] Basophils/100 WBC Auto (Bld) Ordered By: Sotero Black on 01-10-2025 Basophils/100 WBC (Bld) Automated basophil % . [facility] Calcium [Mass/volume] in Ser um or PlasmaOrdered By: Sotero Black on 01-10-2025 Calcium [Mass/Vol] Calcium [Mass/volume] in Serum or Plasma Low 8.6-10.3 [facility] Carbon dioxide, total [Moles /volume] in Serum or PlasmaOrdered By: Sotero Black on 01-10-2025 CO2 [Moles/Vol] Carbon dioxide, total [Moles/volume] in Serum or Plasma 21.0-31.0 [facility] Chloride [Moles/volume] in S alayna or PlasmaOrdered By: Sotero Black on 01-10-2025 Chloride [Moles/Vol] Chloride [Moles/volume] in Serum or Plasma 98-107 [facility] Complete Blood Count Auto Di ffon 01-10-2025 Basophils (Bld) [#/Vol] 0.0 10*3/uL Normal 0.0-0.2 [facility] Comment on above: Result Comment: PERF ORMED BY: [facility] [address] [place] [address] PATHOLOGIST PIPE CONNECTOR KRISTEL LU M.D. Performed By: #### R ENAL, CBC ####[address] Basophils/100 WBC (Bld) 0.5 % Normal . T jeff [facility] Comment on above: Performed By: #### R ENAL, CBC ####[address] Eosinophils (Bld) [#/Vol] 0.2 10*3/uL Normal 0.0-0.45 [facility] Comment on above: Performed By: #### R ENAL, CBC ####[address] Eosinophils/100 WBC (Bld) 2.6 % Normal . [facility] Comment on above: Performed By: #### R ENAL, CBC ####[address] Erythrocyte distribution width (RBC) [Ratio] 15.0 % High 12.0-14.8 [facility] Comment on above: Performed By: #### R ENAL, CBC ####[address] Hematocrit (Bld) [Volume fraction] 24.3 % Low 38.8-50.0 [facility] Comment on above: Performed By: #### R ENAL, CBC ####[address] Hemoglobin (Bld) [Mass/Vol] 8.2 g/dL Low 13.0-17.0 [facility] Comment on above: Performed By: #### R ENAL, CBC ####[address] Lymphocytes (Bld) [#/Vol] 0.9 10*3/uL Low 1.00-4.8 [facility] Comment on above: Performed By: #### R ENAL, CBC ####[place] [id number] [facility] Lymphocytes/100 WBC (Bld) 14.9 % Normal . [facility] Comment on above: Performed By: #### R ENAL, CBC ####[address] MCH (RBC) [Entitic mass] 31.8 pg Normal 27.5-35.2 [facility] Comment on above: Performed By: #### R ENAL, CBC ####[address] MCV (RBC) [Entitic vol] 94.3 fL Normal 83.5-101 [facility] Comment on above: Performed By: #### R ENAL, CBC ####[address] Mean Corpuscular HGB Conc 33.7 g/dL Normal 32.5-35.6 [facility] Comment on above: Performed By: #### R ENAL, CBC ####[address] Monocytes (Bld) [#/Vol] 0.7 10*3/uL Normal 0.0-0.8 [facility] Comment on above: Performed By: #### R ENAL, CBC ####[address] Monocytes/100 WBC (Bld) 11.5 % Normal . [facility] Comment on above: Performed By: #### R ENAL, CBC ####[address] Neutrophils (Bld) [#/Vol] 4.4 10*3/uL Normal 1.8-7.7 [facility] Comment on above: Performed By: #### R ENAL, CBC ####[address] Neutrophils/100 WBC (Bld) 70.5 % Normal . [facility] Comment on above: Performed By: #### R ENAL, CBC ####[address] NRBC% 0.1 /100{WBC} Normal 0-0.5 [facility] Comment on above: Performed By: #### R ENAL, CBC ####[place] [id number] [facility] Platelet mean volume (Bld) [Entitic vol] 6.9 fL Normal 6.6-10.1 [facility] Comment on above: Performed By: #### R ENAL, CBC ####[address] [address] [facility] Platelets (Bld) [#/Vol] 323 10*3/uL Normal 150-450 [facility] Comment on above: Performed By: #### R ENAL, CBC ####[place] [id number] [facility] RBC (Bld) [#/Vol] 2.58 10*6/uL Low 3.90-5.60 [facility] Comment on above: Performed By: #### R ENAL, CBC ####[place] [id number] [facility] WBC (Bld) [#/Vol] 6.3 10*3/uL Normal 4.1-10.5 [facility] Comment on above: Performed By: #### R ENAL, CBC ####[address] Creatinine [Mass/volume] in Serum or PlasmaOrdered By: Sotero Black on 01-10-2025 Creatinine [Mass/Vol] Creatinine [Mass/volume] in Serum or Plasma High 0.70-1.30 [facility] Eosinophils Auto (Bld) [#/Vo l]Ordered By: Sotero Black on 01-10-2025 Eosinophils (Bld) [#/Vol] Automated eosi nophil count 0.0-0.45 [facility] Eosinophils/100 WBC Auto (Bl d)Ordered By: Sotero Black on 01-10-2025 Eosinophils/100 WBC (Bld) Automated eosi nophil % . [facility] Erythrocyte distribution wid th Auto (RBC) [Ratio]Ordered By: Sotero Black on 01-10-2025 Erythrocyte distribution width (RBC) [Ratio] Erythrocyte distribution width [Ratio] by Automated count High 12.0-14.8 [facility] Glucose [Mass/volume] in Ser um or PlasmaOrdered By: Sotero Black on 01-10-2025 Glucose [Mass/Vol] Glucose [Mass/volume] in Serum or Plasma 70-100 [facility] Hematocrit Auto (Bld) [Volum e fraction]Ordered By: Soteor Black on 01-10-2025 Hematocrit (Bld) [Volume fraction] Hematocrit [Volume Fraction] of Blood by Automated count Low 38.8-50.0 [facility] Hemoglobin [Mass/volume] in BloodOrdered By: Sotero Black on 01-10-2025 Hemoglobin (Bld) [Mass/Vol] Hemoglobin [Mass/volume] in Blood Low 13.0-17.0 [facility] Leukocytes [#/volume] correc bonnie for nucleated erythrocytes in Blood by Automated counOrdered By: Sotero Black on 01-10-2025 WBC corrected for nucl RBC Auto (Bld) [#/Vol] Leukocytes [#/volume] corrected for nucleated erythrocytes in Blood by Automated coun 4.1-10.5 [facility] Lymphocytes Auto (Bld) [#/Vo l]Ordered By: Sotero Black on 01-10-2025 Lymphocytes (Bld) [#/Vol] Lymphocytes [#/volume] in Blood by Automated count Low 1.00-4.8 [facility] Lymphocytes/100 WBC Auto (Bl d)Ordered By: Sotero Black on 01-10-2025 Lymphocytes/100 WBC (Bld) Lymphocytes/10 0 leukocytes in Blood by Automated count . [facility] MCH Auto (RBC) [Entitic mass ]Ordered By: Sotero Black on 01-10-2025 MCH (RBC) [Entitic mass] MCH [Entitic ma ss] by Automated count 27.5-35.2 [facility] MCHC Auto (RBC) [Mass/Vol]Or dered By: Sotero Black on 01-10-2025 MCHC (RBC) [Mass/Vol] MCHC [Mass/volume] by Automated count 32.5-35.6 [facility] MCV Auto (RBC) [Entitic vol] Ordered By: Sotero Black on 01-10-2025 MCV (RBC) [Entitic vol] MCV [Entitic vol ume] by Automated count 83.5-101 [facility] Monocytes Auto (Bld) [#/Vol] Ordered By: Sotero Black on 01-10-2025 Monocytes (Bld) [#/Vol] Automated blood monocyte count 0.0-0.8 [facility] Monocytes/100 WBC Auto (Bld) Ordered By: Sotero Black on 01-10-2025 Monocytes/100 WBC (Bld) Automated monocyte % . [facility] Neutrophils Auto (Bld) [#/Vo l]Ordered By: Sotero Black on 01-10-2025 Neutrophils (Bld) [#/Vol] Neutrophils [#/volume] in Blood by Automated count 1.8-7.7 [facility] Neutrophils/100 WBC Auto (Bl d)Ordered By: Sotero Black on 01-10-2025 Neutrophils/100 WBC (Bld) Automated neut rophil % . [facility] No Panel InformationOrdered By: Sotero Black on 01-10-2025 26.816 mL/Min [facility] 28.42 [facility] Nucleated erythrocytes [Pres ence] in Blood by Automated countOrdered By: Sotero Black on 01-10-2025 Nucleated RBC Auto Ql (Bld) Nucleated erythrocytes [Presence] in Blood by Automated count 0-0.5 [facility] Phosphate [Mass/volume] in S alayna or PlasmaOrdered By: Sotero Black on 01-10-2025 Phosphate [Mass/Vol] Phosphate [Mass/volume] in Serum or Plasma 2.5-4.5 [facility] Platelet mean volume Auto (B ld) [Entitic vol]Ordered By: Sotero Black on 01-10-2025 Platelet mean volume (Bld) [Entitic vol] Platelet mean volume [Entitic volume] in Blood by Automated count 6.6-10.1 [facility] Platelets Auto (Bld) [#/Vol] Ordered By: Sotero Black on 01-10-2025 Platelets (Bld) [#/Vol] Platelets [#/vol ume] in Blood by Automated count 150-450 [facility] Potassium [Moles/volume] in Serum or PlasmaOrdered By: Sotero Black on 01-10-2025 Potassium [Moles/Vol] Potassium [Moles/volume] in Serum or Plasma 3.5-5.1 [facility] RBC Auto (Bld) [#/Vol]Ordere d By: Sotero Black on 01-10-2025 RBC (Bld) [#/Vol] Erythrocytes [#/volume] in Blood by Automated count Low 3.90-5.60 [facility] Renal Function Panelon 01-10 Albumin [Mass/Vol] 3.1 g/dL Low 3.5-5.7 [facility] Comment on above: Performed By: #### R ADEEL, CBC ####[place] [address] [place] [id number] [facility] Anion gap [Moles/Vol] 10.4 mmol/L Normal 6.0-15.0 [facility] Comment on above: Performed By: #### R ADEEL, CBC ####[place] [id number] [facility] Calcium [Mass/Vol] 7.9 mg/dL Low 8.6-10.3 [facility] Comment on above: Performed By: #### R ADEEL, CBC ####[place] [id number] [facility] Chloride [Moles/Vol] 106 mmol/L Normal 98-107 [facility] Comment on above: Performed By: #### R ADEEL, CBC ####[place] [id number] [facility] CO2 [Moles/Vol] 26.5 mmol/L Normal 21.0-31.0 [facility] Comment on above: Performed By: #### R ADEEL, CBC ####[address] [address] [facility] Creatinine [Mass/Vol] 2.36 mg/dL High 0.70-1.30 [facility] Comment on above: Performed By: #### R ADEEL, CBC ####[place] [id number] [facility] Creatinine Clr Calc Pharmacy 28.42 Normal [facility] Comment on above: Result Comment: PERF ORMED BY: [facility] [address] [place] [id number] PATHOLOGIST PIPE CONNECTOR KRISTEL LU M.D. Performed By: #### R ENAL, CBC ####[place] [id number] [facility] Estimated GFR 26.816 mL/Min Normal [facility] Comment on above: Performed By: #### R ENAL, CBC ####[place] [id number] [facility] Glucose [Mass/Vol] 89 mg/dL Normal 70-100 [facility] Comment on above: Result Comment: [facility] Glucose Reference Range is dependent on time and content of last meal. Glucose of more than 200 mg/dL in a nonstressed, ambulatory subject supports the diagnosis of Diabetes Mellitus. ADA recommended reference range Performed By: #### R ENAL, CBC ####[place] [id number] [facility] Phosphate [Mass/Vol] 3.9 mg/dL Normal 2.5-4.5 [facility] Comment on above: Performed By: #### R ENAL, CBC ####[place] [id number] [facility] Potassium [Moles/Vol] 3.9 mmol/L Normal 3.5-5.1 [facility] Comment on above: Performed By: #### R ENAL, CBC ####[place] [id number] [facility] Sodium [Moles/Vol] 139 mmol/L Normal 136-145 [facility] Comment on above: Performed By: #### R ENAL, CBC ####[place] [id number] [facility] Urea nitrogen [Mass/Vol] 41 mg/dL High 7-25 [facility] Comment on above: Performed By: #### R ENAL, CBC ####[place] [id number] [facility] Serum or plasma anion gap de terminationOrdered By: Sotero Black on 01-10-2025 Anion gap [Moles/Vol] Serum or plasma anion gap determination 6.0-15.0 [facility] Sodium [Moles/volume] in Ser um or PlasmaOrdered By: Sotero Black on 01-10-2025 Sodium [Moles/Vol] Sodium [Moles/volume] in Serum or Plasma 136-145 [facility] Urea nitrogen [Mass/volume] in Serum or PlasmaOrdered By: Sotero Black on 01-10-2025 Urea nitrogen [Mass/Vol] Urea nitrogen [Mass/volume] in Serum or Plasma High 7-25 [facility] WBC Auto (Bld) [#/Vol]Ordere d By: Sotero Black on 01-10-2025 WBC (Bld) [#/Vol] Leukocytes [#/volume] in Blood by Automated count 4.1-10.5 [facility] Renal Function Panelon 01-08 Albumin [Mass/Vol] 3.0 g/dL Low 3.5-5.7 [facility] Comment on above: Performed By: #### R ENAL ####[address] Anion gap [Moles/Vol] 9.4 mmol/L Normal 6.0-15.0 [facility] Comment on above: Performed By: #### R ENAL ####[address] Calcium [Mass/Vol] 7.6 mg/dL Low 8.6-10.3 [facility] Comment on above: Performed By: #### R ENAL ####[place] [id number] [facility] Chloride [Moles/Vol] 108 mmol/L High 98-107 [facility] Comment on above: Performed By: #### R ENAL ####[place] [id number] [facility] CO2 [Moles/Vol] 26.8 mmol/L Normal 21.0-31.0 [facility] Comment on above: Performed By: #### R ENAL ####[place] [id number] [facility] Creatinine [Mass/Vol] 1.96 mg/dL High 0.70-1.30 [facility] Comment on above: Performed By: #### R ENAL ####[place] [address] [place] [address] [facility] Creatinine Clr Calc Pharmacy 33.78 Normal [facility] Comment on above: Result Comment: PERF ORMED BY: [facility] [address] [place] [address] PATHOLOGIST PIPE CONNECTOR KRISTEL LU M.D. Performed By: #### R ENAL ####[place] [address] [place] [id number] [facility] Estimated GFR 33.511 mL/Min Normal [facility] Comment on above: Performed By: #### R ENAL ####[place] [id number] [facility] Glucose [Mass/Vol] 108 mg/dL High 70-100 [facility] Comment on above: Result Comment: [place] Glucose Reference Range is dependent on time and content of last meal. Glucose of more than 200 mg/dL in a nonstressed, ambulatory subject supports the diagnosis of Diabetes Mellitus. ADA recommended reference range Performed By: #### R ENAL ####[place] [id number] [facility] Phosphate [Mass/Vol] 3.5 mg/dL Normal 2.5-4.5 [facility] Comment on above: Performed By: #### R ENAL ####[place] [id number] [place] Potassium [Moles/Vol] 4.2 mmol/L Normal 3.5-5.1 [facility] Comment on above: Performed By: #### R ENAL ####[address] [address] [facility] Sodium [Moles/Vol] 140 mmol/L Normal 136-145 [facility] Comment on above: Performed By: #### R ENAL ####[place] [id number] [facility] Urea nitrogen [Mass/Vol] 39 mg/dL High 7-25 [facility] Comment on above: Performed By: #### R ENAL ####[place] [id number] [facility] Hemoglobin and Hematocriton 01-07-2025 Hematocrit (Bld) [Volume fraction] 23.3 % Low 38.8-50.0 [facility] Comment on above: Result Comment: PERF ORMED BY: [facility] [address] [place] [address] PATHOLOGIST PIPE CONNECTOR KRISTEL LU M.D. Performed By: #### H H ####[place] [id number] [facility] Hemoglobin (Bld) [Mass/Vol] 8.0 g/dL Low 13.0-17.0 [facility] Comment on above: Performed By: #### H H ####[place] [id number] [facility] Basic Metabolic Panelon 12-15 Anion gap [Moles/Vol] 9.8 mmol/L Normal 6.0-15.0 [facility] Comment on above: Performed By: #### B MP ####[place] [id number] [facility] Calcium [Mass/Vol] 8.2 mg/dL Low 8.6-10.3 [facility] Comment on above: Performed By: #### B MP ####[place] [id number] [facility] Chloride [Moles/Vol] 105 mmol/L Normal 98-107 [facility] Comment on above: Performed By: #### B MP ####[place] [id number] [facility] CO2 [Moles/Vol] 28.4 mmol/L Normal 21.0-31.0 [facility] Comment on above: Performed By: #### B MP ####[place] [id number] [facility] Creatinine [Mass/Vol] 2.36 mg/dL High 0.70-1.30 [facility] Comment on above: Performed By: #### B MP ####[address] Creatinine Clr Calc Pharmacy 28.43 Normal [facility] Comment on above: Result Comment: PERF ORMED BY: [facility] [address] [place] [address] PATHOLOGIST PIPE CONNECTOR KRISTEL LU M.D. Performed By: #### B MP ####[address] Estimated GFR 26.816 mL/Min Normal [facility] Comment on above: Performed By: #### B MP ####[address] Glucose [Mass/Vol] 106 mg/dL High 70-100 [facility] Comment on above: Result Comment: [place] Glucose Reference Range is dependent on time and content of last meal. Glucose of more than 200 mg/dL in a nonstressed, ambulatory subject supports the diagnosis of Diabetes Mellitus. ADA recommended reference range Performed By: #### B MP ####[address] Potassium [Moles/Vol] 4.2 mmol/L Normal 3.5-5.1 [facility] Comment on above: Performed By: #### B MP ####[address] Sodium [Moles/Vol] 139 mmol/L Normal 136-145 [facility] Comment on above: Performed By: #### B MP ####[place] [id number] [facility] Urea nitrogen [Mass/Vol] 55 mg/dL High 7-25 [facility] Comment on above: Performed By: #### B MP ####[place] [id number] [facility] Hemogram CBC Without Diffon 01-06-2025 Erythrocyte distribution width (RBC) [Ratio] 14.7 % Normal 12.0-14.8 [facility] Comment on above: Performed By: #### C BCNO ####[place] [id number] [facility] Hematocrit (Bld) [Volume fraction] 21.9 % Low 38.8-50.0 [facility] Comment on above: Performed By: #### C BCNO ####[address] Hemoglobin (Bld) [Mass/Vol] 7.5 g/dL Low 13.0-17.0 [facility] Comment on above: Performed By: #### C BCNO ####[address] MCH (RBC) [Entitic mass] 32.5 pg Normal 27.5-35.2 [facility] Comment on above: Performed By: #### C BCNO ####[address] MCV (RBC) [Entitic vol] 94.4 fL Normal 83.5-101 T he [facility] Comment on above: Performed By: #### C BCNO ####[address] Mean Corpuscular HGB Conc 34.4 g/dL Normal 32.5-35.6 [facility] Comment on above: Performed By: #### C BCNO ####[address] Platelet mean volume (Bld) [Entitic vol] 6.7 fL Normal 6.6-10.1 [facility] Comment on above: Result Comment: PERF ORMED BY: [facility] [address] [address] PATHOLOGIST PIPE CONNECTOR KRISTEL LU M.D. Performed By: #### C BCNO ####[address] Platelets (Bld) [#/Vol] 350 10*3/uL Normal 150-450 [facility] Comment on above: Performed By: #### C BCNO ####[address] RBC (Bld) [#/Vol] 2.32 10*6/uL Low 3.90-5.60 [facility] Comment on above: Performed By: #### C BCNO ####[address] WBC (Bld) [#/Vol] 8.0 10*3/uL Normal 4.1-10.5 [facility] Comment on above: Performed By: #### C BCNO ####[address] Basic Metabolic Panelon 03-2 Anion gap [Moles/Vol] 10.8 mmol/L Normal 6.0-15.0 e [facility] Comment on above: Performed By: #### R ADEEL, CBC #### [address] Calcium [Mass/Vol] 7.6 mg/dL Low 8.6-10.3 [facility] Comment on above: Performed By: #### R ADEEL, CBC #### [address] Chloride [Moles/Vol] 104 mmol/L Normal 98-107 [facility] Comment on above: Performed By: #### R ADEEL, CBC #### [address] CO2 [Moles/Vol] 28.5 mmol/L Normal 21.0-31.0 [facility] Comment on above: Performed By: #### R ADEEL, CBC #### [address] Creatinine [Mass/Vol] 2.73 mg/dL High 0.70-1.30 [facility] Comment on above: Performed By: #### R ADEEL, CBC #### [address] Creatinine Clr Calc Pharmacy 24.47 Normal [facility] Comment on above: Result Comment: PERF ORMED BY: [place] [address] PATHOLOGIST PIPE CONNECTOR KRISTEL LU M.D. Performed By: #### R ENAL, CBC #### [address] Estimated GFR 22.517 mL/Min Normal [facility] Comment on above: Performed By: #### R ENAL, CBC #### [address] Glucose [Mass/Vol] 107 mg/dL High 70-100 [facility] Comment on above: Result Comment: [place] Glucose Reference Range is dependent on time and content of last meal. Glucose of more than 200 mg/dL in a nonstressed, ambulatory subject supports the diagnosis of Diabetes Mellitus. ADA recommended reference range Performed By: #### R ENAL, CBC #### [address] Potassium [Moles/Vol] 4.3 mmol/L Normal 3.5-5.1 [facility] Comment on above: Performed By: #### R ENAL, CBC #### [address] Sodium [Moles/Vol] 139 mmol/L Normal 136-145 [facility] Comment on above: Performed By: #### R ENAL, CBC #### [address] Urea nitrogen [Mass/Vol] 64 mg/dL High 7-25 [facility] Comment on above: Performed By: #### R ENAL, CBC #### [address] Hemogram CBC Without Diffon 01-05-2025 Erythrocyte distribution width (RBC) [Ratio] 14.7 % Normal 12.0-14.8 [facility] Comment on above: Performed By: #### R ENAL, CBC #### [address] Hematocrit (Bld) [Volume fraction] 22.4 % Low 38.8-50.0 [facility] Comment on above: Performed By: #### R ENAL, CBC #### [address] Hemoglobin (Bld) [Mass/Vol] 7.9 g/dL Low 13.0-17.0 [facility] Comment on above: Performed By: #### R ADEEL, CBC #### [address] MCH (RBC) [Entitic mass] 32.9 pg Normal 27.5-35.2 [facility] Comment on above: Performed By: #### R ADEEL, CBC #### [address] MCV (RBC) [Entitic vol] 93.6 fL Normal 83.5-101 T he [facility] Comment on above: Performed By: #### R ADEEL, CBC #### [address] Mean Corpuscular HGB Conc 35.2 g/dL Normal 32.5-35.6 [facility] Comment on above: Performed By: #### R ADEEL, CBC #### [address] Platelet mean volume (Bld) [Entitic vol] 6.9 fL Normal 6.6-10.1 [facility] Comment on above: Result Comment: PERF ORMED BY: [place] [address] PATHOLOGIST PIPE CONNECTOR KRISTEL LU M.D. Performed By: #### R ENKIMMIE, CBC #### [place] [address] [place] Platelets (Bld) [#/Vol] 381 10*3/uL Normal 150-450 [facility] Comment on above: Performed By: #### R ENKIMMIE, CBC #### [address] RBC (Bld) [#/Vol] 2.39 10*6/uL Low 3.90-5.60 [facility] Comment on above: Performed By: #### R ADEEL, CBC #### [address] [place] [address] [place] WBC (Bld) [#/Vol] 9.3 10*3/uL Normal 4.1-10.5 [facility] Comment on above: Performed By: #### R ENAL, CBC #### [facility] [address] Anisocytosis LM Ql (Bld)Orde red By: Brenda Driscoll on 01-04-2025 Anisocytosis Ql (Bld) Anisocytosis [Presence] in Blood by Light microscopy [facility] Band form neutrophils/100 WB C Manual cnt (Bld)Ordered By: Brenda Driscoll on 01-04-2025 Band form neutrophils/100 WBC (Bld) Peripheral white blood cell differential % bands, microscopic exam 0-5 [facility] Basic Metabolic Panelon 12-15 Anion gap [Moles/Vol] 10.2 mmol/L Normal 6.0-15.0 Th e [facility] Comment on above: Performed By: #### B MP, DIFF CBC ####[address] Calcium [Mass/Vol] 8.2 mg/dL Low 8.6-10.3 [facility] Comment on above: Performed By: #### B MP, DIFF CBC ####[address] Chloride [Moles/Vol] 102 mmol/L Normal 98-107 [facility] Comment on above: Performed By: #### B MP, DIFF CBC ####[address] CO2 [Moles/Vol] 30.1 mmol/L Normal 21.0-31.0 [facility] Comment on above: Performed By: #### B MP, DIFF CBC ####[address] Creatinine [Mass/Vol] 2.84 mg/dL High 0.70-1.30 [facility] Comment on above: Performed By: #### B MP, DIFF CBC ####[place] [address] [place] Creatinine Clr Calc Pharmacy 23.55 Normal [facility] Comment on above: Result Comment: PERF ORMED BY: [facility] [address] PATHOLOGIST PIPE CONNECTOR KRISTEL LU M.D. Performed By: #### B MP, DIFF CBC ####[place] [id number] Estimated GFR 21.474 mL/Min Normal [facility] Comment on above: Performed By: #### B MP, DIFF CBC ####[address] Glucose [Mass/Vol] 110 mg/dL High 70-100 [facility] Comment on above: Result Comment: [place] Glucose Reference Range is dependent on time and content of last meal. Glucose of more than 200 mg/dL in a nonstressed, ambulatory subject supports the diagnosis of Diabetes Mellitus. ADA recommended reference range Performed By: #### B MP, DIFF CBC ####[address] Potassium [Moles/Vol] 4.3 mmol/L Normal 3.5-5.1 [facility] Comment on above: Performed By: #### B MP, DIFF CBC ####[address] Sodium [Moles/Vol] 138 mmol/L Normal 136-145 [facility] Comment on above: Performed By: #### B MP, DIFF CBC ####[address] Urea nitrogen [Mass/Vol] 76 mg/dL High 7-25 [facility] Comment on above: Performed By: #### B MP, DIFF CBC ####[place] [id number] [place] Diff and CBCon 01-04-2025 Anisocytosis Ql (Bld) Slight Normal [facility] Comment on above: Performed By: #### B MP, DIFF CBC ####[place] [id number] [facility] Band form neutrophils/100 WBC (Bld) 3 % Normal 0-5 [facility] Comment on above: Performed By: #### B MP, DIFF CBC ####[address] Eosinophils/100 WBC (Bld) 1 % Normal 1-3 [facility] Comment on above: Performed By: #### B MP, DIFF CBC ####[address] Erythrocyte distribution width (RBC) [Ratio] 14.8 % Normal 12.0-14.8 [facility] Comment on above: Performed By: #### B MP, DIFF CBC ####[address] Hematocrit (Bld) [Volume fraction] 23.4 % Low 38.8-50.0 [facility] Comment on above: Performed By: #### B MP, DIFF CBC ####[address] Hemoglobin (Bld) [Mass/Vol] 8.0 g/dL Low 13.0-17.0 [facility] Comment on above: Performed By: #### B MP, DIFF CBC ####[address] Large Platelets Slight Normal [facility] Comment on above: Result Comment: PERF ORMED BY: [facility] [address] [facility] [place] [address] PATHOLOGIST PIPE CONNECTOR KRISTEL LU M.D. Performed By: #### B MP, DIFF CBC ####[address] Lymphocytes/100 WBC (Bld) 10 % Low 18-42 [facility] Comment on above: Performed By: #### B MP, DIFF CBC ####[address] MCH (RBC) [Entitic mass] 32.5 pg Normal 27.5-35.2 [facility] Comment on above: Performed By: #### B MP, DIFF CBC ####[address] MCV (RBC) [Entitic vol] 94.2 fL Normal 83.5-101 T [facility] Comment on above: Performed By: #### B MP, DIFF CBC ####[address] Mean Corpuscular HGB Conc 34.5 g/dL Normal 32.5-35.6 [facility] Comment on above: Performed By: #### B MP, DIFF CBC ####[address] Metamyelocytes 1 % High 0-0 [facility] Comment on above: Performed By: #### B MP, DIFF CBC ####[address] Microcytosis Slight Normal [facility] Comment on above: Performed By: #### B MP, DIFF CBC ####[address] Monocytes/100 WBC (Bld) 4 % Normal 2-11 [facility] Comment on above: Performed By: #### B MP, DIFF CBC ####[address] Ovalocytes Slight Normal [facility] Comment on above: Performed By: #### B MP, DIFF CBC ####[address] Platelet Estimate Normal Normal Normal [facility] Comment on above: Performed By: #### B MP, DIFF CBC ####[address] Platelet mean volume (Bld) [Entitic vol] 7.1 fL Normal 6.6-10.1 [facility] Comment on above: Performed By: #### B MP, DIFF CBC ####[address] Platelet Morphology Normal Normal Normal [facility] Comment on above: Performed By: #### B MP, DIFF CBC ####[facility] [place] [id number] [facility] Platelets (Bld) [#/Vol] 374 10*3/uL Normal 150-450 [facility] Comment on above: Performed By: #### B MP, DIFF CBC ####[address] Poikilocytosis Slight Normal [facility] Comment on above: Performed By: #### B MP, DIFF CBC ####[address] RBC (Bld) [#/Vol] 2.48 10*6/uL Low 3.90-5.60 [facility] Comment on above: Performed By: #### B MP, DIFF CBC ####[place] [address] Segmented neutrophils/100 WBC (Bld) 82 % High 50-70 [facility] Comment on above: Performed By: #### B MP, DIFF CBC ####[place] [id number] [facility] WBC (Bld) [#/Vol] 9.8 10*3/uL Normal 4.1-10.5 [facility] Comment on above: Performed By: #### B MP, DIFF CBC ####[place] [id number] [facility] Eosinophils/100 WBC Manual c nt (Bld)Ordered By: Brenda Driscoll on 01-04-2025 Eosinophils/100 WBC (Bld) Eosinophils/10 0 leukocytes in Blood by Manual count 1-3 [facility] Erythrocyte morphology findi ng [Identifier] in BloodOrdered By: Brenda Driscoll on 01-04-2025 RBC morphology finding Nom (Bld) RBC morphology [facility] Lymphocytes/100 WBC Manual c nt (Bld)Ordered By: Brenda Driscoll on 01-04-2025 Lymphocytes/100 WBC (Bld) Lymphocytes/10 0 leukocytes in Blood by Manual count Low 18-42 [facility] Metamyelocytes/100 WBC Manua l cnt (Bld)Ordered By: Brenda Driscoll on 01-04-2025 Metamyelocytes/100 WBC (Bld) Metamyelocytes/100 leukocytes in Blood by Manual count High 0-0 [facility] Microcytes LM Ql (Bld)Ordere d By: Brenda Driscoll on 01-04-2025 Microcytes Ql (Bld) Microcytes [Presence] in Blood by Light microscopy [facility] Monocytes/100 WBC Manual cnt (Bld)Ordered By: Brenda Driscoll on 01-04-2025 Monocytes/100 WBC (Bld) Monocytes/100 leukocytes in Blood by Manual count 11-26 [facility] Ovalocytes [Presence] in Blo od by Light microscopyOrdered By: Brenda Driscoll on 01-04-2025 Ovalocytes LM Ql (Bld) Ovalocyte detection [facility] Platelet adequacy [Presence] in Blood by Light microscopyOrdered By: Brenda Driscoll on 01-04-2025 Platelets LM Ql (Bld) Platelet adequacy [Presence] in Blood by Light microscopy Normal [facility] Platelet morphology finding [Identifier] in BloodOrdered By: Brenda Driscoll on 01-04-2025 Platelet morphology finding Nom (Bld) Platelet morphology finding [Identifier] in Blood Normal [facility] Platelets Large [Presence] i n Blood by Light microscopyOrdered By: Brenda Driscoll on 01-04-2025 Platelets Large LM Ql (Bld) Platelets Large [Presence] in Blood by Light microscopy [facility] Poikilocytosis [Presence] in Blood by Light microscopyOrdered By: Brenda Driscoll on 01-04-2025 Poikilocytosis LM Ql (Bld) Poikilocytosis [Presence] in Blood by Light microscopy [facility] Segmented neutrophils/100 WB C Manual cnt (Bld)Ordered By: Brenda Driscoll on 01-04-2025 Segmented neutrophils/100 WBC (Bld) Manual blood segmented neutrophils/100 leukocytes High 50-70 [facility] Basic Metabolic Panelon 12-15 Anion gap [Moles/Vol] 11.5 mmol/L Normal 6.0-15.0 Th e [facility] Comment on above: Performed By: #### B MP, CBCNO ####[facility] [address] Calcium [Mass/Vol] 8.0 mg/dL Low 8.6-10.3 [facility] Comment on above: Performed By: #### B MARGARETH, CBCNO ####[address] Chloride [Moles/Vol] 98 mmol/L Normal 98-107 [facility] Comment on above: Performed By: #### B MARGARETH, CBCNO ####[address] CO2 [Moles/Vol] 29.8 mmol/L Normal 21.0-31.0 [facility] Comment on above: Performed By: #### B MARGARETH, CBCNO ####[address] Creatinine [Mass/Vol] 3.16 mg/dL Significan t change up 0.70-1.30 [facility] Comment on above: Performed By: #### B MARGARETH, CBCNO ####[address] Creatinine Clr Calc Pharmacy 21.34 Normal [facility] Comment on above: Result Comment: PERF ORMED BY: [facility] [address] [place] [address] PATHOLOGIST PIPE CONNECTOR KRISTEL LU M.D. Performed By: #### B MARGARETH, CBCNO ####[address] Estimated GFR 18.892 mL/Min Normal [facility] Comment on above: Performed By: #### B MARGARETH, CBCNO ####[address] Glucose [Mass/Vol] 118 mg/dL High 70-100 [facility] Comment on above: Result Comment: [place] Glucose Reference Range is dependent on time and content of last meal. Glucose of more than 200 mg/dL in a nonstressed, ambulatory subject supports the diagnosis of Diabetes Mellitus. ADA recommended reference range Performed By: #### B MARGARETH, CBCNO ####[address] Potassium [Moles/Vol] 4.3 mmol/L Normal 3.5-5.1 [facility] Comment on above: Performed By: #### B MARGARETH, CBCNO ####[address] Sodium [Moles/Vol] 135 mmol/L Low 136-145 [facility] Comment on above: Performed By: #### B MARGARETH, CBCNO ####[place] [id number] [facility] Urea nitrogen [Mass/Vol] 91 mg/dL High 7-25 [facility] Comment on above: Performed By: #### B MARGARETH, CBCNO ####[address] Hemogram CBC Without Diffon 01-03-2025 Erythrocyte distribution width (RBC) [Ratio] 14.9 % High 12.0-14.8 [facility] Comment on above: Performed By: #### B MARGARETH, CBCNO ####[address] Hematocrit (Bld) [Volume fraction] 22.0 % Low 38.8-50.0 [facility] Comment on above: Performed By: #### B MARGARETH, CBCNO ####[place] [id number] [facility] Hemoglobin (Bld) [Mass/Vol] 7.7 g/dL Low 13.0-17.0 [facility] Comment on above: Performed By: #### B MARGARETH, CBCNO ####[place] [id number] [facility] MCH (RBC) [Entitic mass] 32.6 pg Normal 27.5-35.2 [facility] Comment on above: Performed By: #### B MARGARETH, CBCNO ####[place] [id number] [facility] MCV (RBC) [Entitic vol] 93.0 fL Normal 83.5-101 T he [facility] Comment on above: Performed By: #### B MP, CBCNO ####[address] [address] [facility] Mean Corpuscular HGB Conc 35.0 g/dL Normal 32.5-35.6 [facility] Comment on above: Performed By: #### B MP, CBCNO ####[address] [address] [facility] Platelet mean volume (Bld) [Entitic vol] 7.4 fL Normal 6.6-10.1 [facility] Comment on above: Result Comment: PERF ORMED BY: [facility] [address] [facility] [place] [address] PATHOLOGIST PIPE CONNECTOR KRISTEL LU M.D. Performed By: #### B MP, CBCNO ####[address] [address] [facility] Platelets (Bld) [#/Vol] 345 10*3/uL Normal 150-450 [facility] Comment on above: Performed By: #### B MP, CBCNO ####[address] [address] [facility] RBC (Bld) [#/Vol] 2.37 10*6/uL Low 3.90-5.60 [facility] Comment on above: Performed By: #### B MP, CBCNO ####[address] [address] [facility] WBC (Bld) [#/Vol] 10.0 10*3/uL Normal 4.1-10.5 [facility] Comment on above: Performed By: #### B MP, CBCNO ####[place] [id number] [facility] Fecal occult blood detection by immunochemistryOrdered By: Winsome Goff on 01-02-2025 Hemoglobin.gastrointestin al Ql (Stl) Fecal occult blood detection by immunochemistry [facility] Hemogram CBC Without Diffon 01-02-2025 Erythrocyte distribution width (RBC) [Ratio] 14.6 % Normal 12.0-14.8 [facility] Comment on above: Performed By: #### C BCNO, RENAL ####[place] [id number] [facility] Hematocrit (Bld) [Volume fraction] 22.2 % Low 38.8-50.0 [facility] Comment on above: Performed By: #### C BCNO, RENAL ####[place] [id number] [facility] Hemoglobin (Bld) [Mass/Vol] 7.5 g/dL Low 13.0-17.0 [facility] Comment on above: Performed By: #### C BCNO, RENAL ####[place] [id number] [facility] MCH (RBC) [Entitic mass] 31.9 pg Normal 27.5-35.2 [facility] Comment on above: Performed By: #### C BCNO, RENAL ####[address] MCV (RBC) [Entitic vol] 94.0 fL Normal 83.5-101 T [facility] Comment on above: Performed By: #### C BCNO, RENAL ####[address] Mean Corpuscular HGB Conc 33.9 g/dL Normal 32.5-35.6 [facility] Comment on above: Performed By: #### C BCNO, RENAL ####[address] Platelet mean volume (Bld) [Entitic vol] 7.5 fL Normal 6.6-10.1 [facility] Comment on above: Result Comment: PERF ORMED BY: [facility] [address] [place] [id number] PATHOLOGIST PIPE CONNECTOR KRISTEL LU M.D. Performed By: #### C BCNO, RENAL ####[place] [id number] [facility] Platelets (Bld) [#/Vol] 332 10*3/uL Normal 150-450 [facility] Comment on above: Performed By: #### C BCNO, RENAL ####[address] RBC (Bld) [#/Vol] 2.36 10*6/uL Low 3.90-5.60 [facility] Comment on above: Performed By: #### C BCNO, RENAL ####[address] WBC (Bld) [#/Vol] 11.7 10*3/uL High 4.1-10.5 [facility] Comment on above: Performed By: #### C BCNO, RENAL ####[address] Renal Function Panelon 01-02 Albumin [Mass/Vol] 2.8 g/dL Low 3.5-5.7 [facility] Comment on above: Performed By: #### C BCNO, RENAL ####[address] Anion gap [Moles/Vol] 11.2 mmol/L Normal 6.0-15.0 Th e [facility] Comment on above: Performed By: #### C BCBISHOP, RENAL ####[address] Calcium [Mass/Vol] 8.4 mg/dL Low 8.6-10.3 [facility] Comment on above: Performed By: #### C BCNO, RENAL ####[address] Chloride [Moles/Vol] 96 mmol/L Low 98-107 [facility] Comment on above: Performed By: #### C BCNO, RENAL ####[address] CO2 [Moles/Vol] 30.4 mmol/L Normal 21.0-31.0 [facility] Comment on above: Performed By: #### C BCNO, RENAL ####[address] Creatinine [Mass/Vol] 3.67 mg/dL High 0.70-1.30 [facility] Comment on above: Performed By: #### C BCBISHOP, RENAL ####[address] Creatinine Clr Calc Pharmacy 18.42 Normal [facility] Comment on above: Result Comment: PERF ORMED BY: [facility] [address] [place] [address] PATHOLOGIST PIPE CONNECTOR KRISTEL LU M.D. Performed By: #### C BLANCHE, RENAL ####[address] Estimated GFR 15.787 mL/Min Normal [facility] Comment on above: Performed By: #### C BLANCHE, RENAL ####[address] Glucose [Mass/Vol] 107 mg/dL High 70-100 [facility] Comment on above: Result Comment: [place] Glucose Reference Range is dependent on time and content of last meal. Glucose of more than 200 mg/dL in a nonstressed, ambulatory subject supports the diagnosis of Diabetes Mellitus. ADA recommended reference range Performed By: #### C BLANCHE, RENAL ####[address] Phosphate [Mass/Vol] 4.2 mg/dL Normal 2.5-4.5 [facility] Comment on above: Performed By: #### C BLANCHE, RENAL ####[address] Potassium [Moles/Vol] 4.6 mmol/L Normal 3.5-5.1 [facility] Comment on above: Performed By: #### C BLANCHE, RENAL ####[address] Sodium [Moles/Vol] 133 mmol/L Low 136-145 [facility] Comment on above: Performed By: #### C BLANCHE, RENAL ####[address] Urea nitrogen [Mass/Vol] 90 mg/dL High 7-25 [facility] Comment on above: Performed By: #### C BCNO, RENAL ####[address] Stool Occult Blood (Immuno)o n 01-02-2025 Stool Occult Blood (Immuno) Occult Blood (Immuno) Positive for Occult Blood by Immunochemical Methodology Reference range = Negative PERFORMED BY: [facility] [address] [place] [address] PATHOLOGIST PIPE CONNECTOR KRISTEL LU M.D. Normal [facility] Comment on above: Performed By: #### O B(IMMUNO) ####[address] Hemoglobin and Hematocriton 01-01-2025 Hematocrit (Bld) [Volume fraction] 23.8 % Low 38.8-50.0 [facility] Comment on above: Result Comment: PERF ORMED BY: [facility] [address] [place] [address] PATHOLOGIST PIPE CONNECTOR KRISTEL LU M.D. Performed By: #### H H ####[address] Hemoglobin (Bld) [Mass/Vol] 8.3 g/dL Low 13.0-17.0 [facility] Comment on above: Performed By: #### H H ####[address] Diff and CBCon 12-31-2024 Anisocytosis Ql (Bld) Slight Normal [facility] Comment on above: Performed By: #### D IFF CBC ####[address] Eosinophils/100 WBC (Bld) 3 % Normal 1-3 [facility] Comment on above: Performed By: #### D IFF CBC ####[place] [id number] [facility] Erythrocyte distribution width (RBC) [Ratio] 15.0 % High 12.0-14.8 [facility] Comment on above: Performed By: #### D IFF CBC ####[place] [id number] [facility] Hematocrit (Bld) [Volume fraction] 22.5 % Low 38.8-50.0 [facility] Comment on above: Performed By: #### D IFF CBC ####[address] Hemoglobin (Bld) [Mass/Vol] 7.6 g/dL Low 13.0-17.0 [facility] Comment on above: Performed By: #### D IFF CBC ####[address] Lymphocytes/100 WBC (Bld) 7 % Low 18-42 [facility] Comment on above: Performed By: #### D IFF CBC ####[address] MCH (RBC) [Entitic mass] 31.6 pg Normal 27.5-35.2 [facility] Comment on above: Performed By: #### D IFF CBC ####[place] [id number] [facility] MCV (RBC) [Entitic vol] 92.9 fL Normal 83.5-101 [facility] Comment on above: Performed By: #### D IFF CBC ####[place] [id number] [facility] Mean Corpuscular HGB Conc 34.0 g/dL Normal 32.5-35.6 [facility] Comment on above: Performed By: #### D IFF CBC ####[place] [id number] [facility] Metamyelocytes 2 % High 0-0 [facility] Comment on above: Performed By: #### D IFF CBC ####[address] [address] [facility] Monocytes/100 WBC (Bld) 2 % Normal 2-11 T he [facility] Comment on above: Performed By: #### D IFF CBC ####[address] [address] [facility] Myelocytes 1 % High 0-0 [facility] Comment on above: Performed By: #### D IFF CBC ####[address] [address] [facility] Platelet Estimate Normal Normal Normal [facility] Comment on above: Result Comment: PERF ORMED BY: [facility] [address] [place] [address] PATHOLOGIST PIPE CONNECTOR KRISTEL LU M.D. Performed By: #### D IFF CBC ####[place] [id number] [facility] Platelet mean volume (Bld) [Entitic vol] 7.4 fL Normal 6.6-10.1 [facility] Comment on above: Performed By: #### D IFF CBC ####[place] [id number] [facility] Platelet Morphology Normal Normal Normal [facility] Comment on above: Result Comment: PERF ORMED BY: [facility] [address] [place] [address] PATHOLOGIST PIPE CONNECTOR KRISTEL LU M.D. Performed By: #### D IFF CBC ####[address] [address] [facility] Platelets (Bld) [#/Vol] 299 10*3/uL Normal 150-450 [facility] Comment on above: Performed By: #### D IFF CBC ####[address] [address] [facility] RBC (Bld) [#/Vol] 2.42 10*6/uL Low 3.90-5.60 [facility] Comment on above: Performed By: #### D IFF CBC ####[place] [address] [place] [id number] [facility] Segmented neutrophils/100 WBC (Bld) 86 % High 50-70 [facility] Comment on above: Performed By: #### D IFF CBC ####[place] [id number] [facility] WBC (Bld) [#/Vol] 8.8 10*3/uL Normal 4.1-10.5 [facility] Comment on above: Performed By: #### D IFF CBC ####[place] [id number] [facility] LeukoReduced RBCon LeukoReduced RBC NOT AVAILABLE Normal [facility] Myelocytes/100 WBC Manual cn t (Bld)Ordered By: Sotero Black on 12-31-2024 Myelocytes/100 WBC (Bld) Myelocytes/100 leukocytes in Blood by Manual count High 0-0 [facility] Renal Function Panelon 12-31 Albumin [Mass/Vol] 3.0 g/dL Low 3.5-5.7 [facility] Comment on above: Performed By: #### R ENAL ####[address] Anion gap [Moles/Vol] 11.4 mmol/L Normal 6.0-15.0 Th e [facility] Comment on above: Performed By: #### R ENAL ####[address] Calcium [Mass/Vol] 8.7 mg/dL Normal 8.6-10.3 [facility] Comment on above: Performed By: #### R ENAL ####[place] [id number] [facility] Chloride [Moles/Vol] 95 mmol/L Low 98-107 [facility] Comment on above: Performed By: #### R ENAL ####[address] CO2 [Moles/Vol] 32.6 mmol/L High 21.0-31.0 [facility] Comment on above: Performed By: #### R ENAL ####[place] [address] [place] [id number] [facility] Creatinine [Mass/Vol] 3.24 mg/dL High 0.70-1.30 [facility] Comment on above: Performed By: #### R ENAL ####[place] [id number] [facility] Creatinine Clr Calc Pharmacy 20.85 Normal [facility] Comment on above: Result Comment: PERF ORMED BY: [facility] [address] [place] [id number] PATHOLOGIST PIPE CONNECTOR KRISTEL LU M.D. Performed By: #### R ENAL ####[place] [id number] [facility] Estimated GFR 18.334 mL/Min Normal [facility] Comment on above: Performed By: #### R ENAL ####[place] [id number] [facility] Glucose [Mass/Vol] 120 mg/dL High 70-100 [facility] Comment on above: Result Comment: [place] Glucose Reference Range is dependent on time and content of last meal. Glucose of more than 200 mg/dL in a nonstressed, ambulatory subject supports the diagnosis of Diabetes Mellitus. ADA recommended reference range Performed By: #### R ENAL ####[place] [id number] [facility] Phosphate [Mass/Vol] 4.3 mg/dL Normal 2.5-4.5 [facility] Comment on above: Performed By: #### R ENAL ####[place] [id number] [facility] Potassium [Moles/Vol] 4.0 mmol/L Normal 3.5-5.1 [facility] Comment on above: Performed By: #### R ENAL ####[place] [id number] [facility] Sodium [Moles/Vol] 135 mmol/L Low 136-145 [facility] Comment on above: Performed By: #### R ENAL ####[address] [address] [facility] Urea nitrogen [Mass/Vol] 94 mg/dL High 7-25 [facility] Comment on above: Performed By: #### R ENAL ####[place] [id number] [facility] Type and Screenon 12-31-2024 ABO and Rh group Nom (Bld) Blood group O Rh(D) positive Normal [facility] Comment on above: Order Comment: Trans fuse now? Y Number of units to transfuse now? 2 Transfuse now? Y Number of units to transfuse now? 1 Transfuse now? Y Number of units to transfuse now? 1 Transfuse now? Y Number of units to transfuse now? 1 Basic Metabolic Panelon 12-14 Anion gap [Moles/Vol] 11.8 mmol/L Normal 6.0-15.0 Th e [facility] Comment on above: Performed By: #### B MP, URIC ####[place] [id number] [facility] Calcium [Mass/Vol] 9.1 mg/dL Normal 8.6-10.3 [facility] Comment on above: Performed By: #### B MP, URIC ####[place] [id number] [facility] Chloride [Moles/Vol] 93 mmol/L Low 98-107 [facility] Comment on above: Performed By: #### B MP, URIC ####[place] [id number] [facility] CO2 [Moles/Vol] 35.5 mmol/L High 21.0-31.0 [facility] Comment on above: Performed By: #### B MP, URIC ####[place] [id number] [facility] Creatinine [Mass/Vol] 3.21 mg/dL High 0.70-1.30 [facility] Comment on above: Performed By: #### B MP, URIC ####[place] [id number] [facility] Creatinine Clr Calc Pharmacy 21.04 Normal [facility] Comment on above: Performed By: #### B MP, URIC ####[place] [id number] [facility] Estimated GFR 18.539 mL/Min Normal [facility] Comment on above: Performed By: #### B MP, URIC ####[place] [id number] [facility] Glucose [Mass/Vol] 123 mg/dL High 70-100 [facility] Comment on above: Result Comment: [facility] Glucose Reference Range is dependent on time and content of last meal. Glucose of more than 200 mg/dL in a nonstressed, ambulatory subject supports the diagnosis of Diabetes Mellitus. ADA recommended reference range Performed By: #### B MP, URIC ####[place] [address] Potassium [Moles/Vol] 4.3 mmol/L Normal 3.5-5.1 [facility] Comment on above: Performed By: #### B MP, URIC ####[address] Sodium [Moles/Vol] 136 mmol/L Normal 136-145 [facility] Comment on above: Performed By: #### B MP, URIC ####[place] [id number] [facility] Urea nitrogen [Mass/Vol] 94 mg/dL High 7-25 [facility] Comment on above: Performed By: #### B MP, URIC ####[place] [id number] [facility] Basophils/100 WBC Manual cnt (Bld)Ordered By: Zoie Field on 12-30-2024 Basophils/100 WBC (Bld) Basophils/100 leukocytes in Blood by Manual count 0-2 [facility] Diff and CBCon 12-30-2024 Anisocytosis Ql (Bld) Slight Normal [facility] Comment on above: Performed By: #### D IFF CBC ####[address] Basophils/100 WBC (Bld) 1 % Normal 0-2 T he [facility] Comment on above: Performed By: #### D IFF CBC ####[address] Erythrocyte distribution width (RBC) [Ratio] 15.5 % High 12.0-14.8 [facility] Comment on above: Performed By: #### D IFF CBC ####[address] Hematocrit (Bld) [Volume fraction] 22.5 % Low 38.8-50.0 [facility] Comment on above: Performed By: #### D IFF CBC ####[address] Hemoglobin (Bld) [Mass/Vol] 7.7 g/dL Low 13.0-17.0 [facility] Comment on above: Performed By: #### D IFF CBC ####[address] Hypochromasia Slight Normal [facility] Comment on above: Performed By: #### D IFF CBC ####[address] Lymphocytes/100 WBC (Bld) 9 % Low 18-42 [facility] Comment on above: Performed By: #### D IFF CBC ####[address] MCH (RBC) [Entitic mass] 32.4 pg Normal 27.5-35.2 [facility] Comment on above: Performed By: #### D IFF CBC ####[address] MCV (RBC) [Entitic vol] 94.0 fL Normal 83.5-101 [facility] Comment on above: Performed By: #### D IFF CBC ####[address] Mean Corpuscular HGB Conc 34.4 g/dL Normal 32.5-35.6 [facility] Comment on above: Performed By: #### D IFF CBC ####[place] [address] [place] [address] [facility] Metamyelocytes 1 % High 0-0 [facility] Comment on above: Performed By: #### D IFF CBC ####[address] [address] [facility] Monocytes/100 WBC (Bld) 6 % Normal 2-11 T he [facility] Comment on above: Performed By: #### D IFF CBC ####[address] [address] [facility] Myelocytes 4 % High 0-0 [facility] Comment on above: Performed By: #### D IFF CBC ####[address] [address] [facility] Platelet Estimate Normal Normal Normal [facility] Comment on above: Performed By: #### D IFF CBC ####[address] [address] [facility] Platelet mean volume (Bld) [Entitic vol] 7.6 fL Normal 6.6-10.1 [facility] Comment on above: Performed By: #### D IFF CBC ####[address] [address] [facility] Platelet Morphology Normal Normal Normal [facility] Comment on above: Result Comment: PERF ORMED BY: [facility] [address] [place] [id number] PATHOLOGIST PIPE CONNECTOR KRISTEL LU M.D. Performed By: #### D IFF CBC ####[address] [address] [facility] Platelets (Bld) [#/Vol] 241 10*3/uL Normal 150-450 [facility] Comment on above: Performed By: #### D IFF CBC ####[address] [address] [facility] Polychromasia Slight Normal [facility] Comment on above: Performed By: #### D IFF CBC ####[address] [address] [place] RBC (Bld) [#/Vol] 2.39 10*6/uL Low 3.90-5.60 [facility] Comment on above: Performed By: #### D IFF CBC ####[facility] Segmented neutrophils/100 WBC (Bld) 80 % High 50-70 [facility] Comment on above: Performed By: #### D IFF CBC ####[place] [address] WBC (Bld) [#/Vol] 8.8 10*3/uL Normal 4.1-10.5 [facility] Comment on above: Performed By: #### D IFF CBC ####[place] [address] Hypochromia LM Ql (Bld)Order ed By: Zoie Field on 12-30-2024 Hypochromia Ql (Bld) Hypochromia [Presence] in Blood by Light microscopy [facility] Polychromasia [Presence] in Blood by Light microscopyOrdered By: Zoie Field on 12-30-2024 Polychromasia LM Ql (Bld) Polychromasia [Presence] in Blood by Light microscopy [facility] US venous duplex LE BIon US venous duplex LE BI [facility] [place] [address] Ultrasound Report Signed Patient: Delano Ren MR#: [id number] [birth year] : 1940 Acct:[id number] Age/Sex: 84 / M ADM Date: 12/27/24 Loc: Room: 3Q3805-5 Type: ADM IN Attending Dr: Sotero Black MD Ordering Provider: Zoie Field APRN Date of Service: 12/30/24 US/US venous duplex LE BI: edema, pain Copies to: MD Zoie Abdi APRN BILATERAL LOWER EXTREMITY VENOUS DUPLEX INDICATION: Swollen legs PROCEDURE: Color-flow duplex scanning is used to interrogate the deep venous system of the right and left lower extremities. The common femoral vein, femoral vein and popliteal vein show good compressibility with normal proximal and distal augmentation. The posterior tibial and peroneal veins are compressible. US/US venous duplex LE BI IMPRESSION: NO EVIDENCE FOR DEEP VEIN THROMBOSIS OR PROXIMAL SUPERFICIAL THROMBOPHLEBITIS IN THE RIGHT OR LEFT LOWER EXTREMITY. Impression dictated by: Dominik Lugo M.D.12/30/2024 12:28 PM Dictation Location: [place] [address] Tech: Cayla Rodriguez Transcribed By: CALI 12/30/24 1228 Dictated By: Dominik Lugo MD 12/30/24 1226 Signed By: 12/30/24 1228 Normal [facility] Urate [Mass/volume] in Serum or PlasmaOrdered By: Zoie Field on 12-30-2024 Urate [Mass/Vol] Urate [Mass/volume] in Serum or Plasma High 4.4-7.6 [facility] Uric Acidon 12-30-2024 Urate [Mass/Vol] 10.6 mg/dL High 4.4-7.6 [facility] Comment on above: Result Comment: PERF ORMED BY: [place] [address] PATHOLOGIST PIPE CONNECTOR KRISTEL LU M.D. Performed By: #### B MP, URIC ####[facility] [id number] [place] [address] X-ray reportOrdered By: Gianni Scott on 12-30-2024 Study report [facility] XR hip RT min 2V(w/wo pelvis )*on 12-30-2024 XR hip RT min 2V(w/wo pelvis)* [facility] [address] [place] [address] [place] [address] XRay Report Signed Patient: Delano Ren MR#: [id number] [birth year] : 1940 Acct:[id number] Age/Sex: 84 / M ADM Date: 12/27/24 Loc: Room: 3M3799-8 Type: ADM IN Attending Dr: Sotero Black MD Copies to: Sotero Black MD Ordering Provider: Sotero Black MD Date of Service: 12/30/24 XR/XR hip RT min 2V(w/wo pelvis)*: 1 week f/u, post-op RIGHT HIP - 2 views: CLINICAL HISTORY: Right hip hemiarthroplasty follow-up COMPARISON: Right hip 12/23/2024 FINDINGS: No hardware complication. No acute bony process. Skin any are noted. XR/XR hip RT min 2V(w/wo pelvis)* IMPRESSION: NO HARDWARE COMPLICATION.. Impression dictated by: Sotero Scott Jr., D.O.12/30/2024 1:24 PM Dictation Location: [facility]- Transcribed By: [facility] 12/30/24 1324 Dictated By: Sotero Scott Jr, DO 12/30/24 1323 Signed By: 12/30/24 1324 Normal [facility] Alanine aminotransferase [En zymatic activity/volume] in Serum or PlasmaOrdered By: Sotero Black on 12-28-2024 ALT [Catalytic activity/Vol] Alanine aminotransferase [Enzymatic activity/volume] in Serum or Plasma 7-52 [facility] Alkaline phosphatase [Enzyma tic activity/volume] in Serum or PlasmaOrdered By: Sotero Black on 12-28-2024 ALP [Catalytic activity/Vol] Alkaline phosphatase [Enzymatic activity/volume] in Serum or Plasma 34-104 [facility] Aspartate aminotransferase [ Enzymatic activity/volume] in Serum or PlasmaOrdered By: Sotero Black on 12-28-2024 AST [Catalytic activity/Vol] Aspartate aminotransferase [Enzymatic activity/volume] in Serum or Plasma 13-39 [facility] Bilirubin.total [Mass/volume ] in Serum or PlasmaOrdered By: Sotero Black on 12-28-2024 Bilirubin [Mass/Vol] Bilirubin.total [Mass/volume] in Serum or Plasma 0.3-1.0 [facility] Comprehensive Metabolic Pane vijay 12-28-2024 Albumin [Mass/Vol] 3.1 g/dL Low 3.5-5.7 [facility] Comment on above: Performed By: #### P AB, CMP, DIFF CBC ####[place] [id number] [facility] Albumin/Globulin [Mass ratio] 1.1 {ratio} Normal [facility] Comment on above: Performed By: #### P AB, CMP, DIFF CBC ####[place] [id number] [facility] ALP [Catalytic activity/Vol] 63 U/L Normal 34-104 [facility] Comment on above: Performed By: #### P AB, CMP, DIFF CBC ####[place] [id number] [facility] ALT [Catalytic activity/Vol] 10 U/L Normal 7-52 [facility] Comment on above: Performed By: #### P AB, CMP, DIFF CBC ####[place] [id number] [facility] Anion gap [Moles/Vol] 10.2 mmol/L Normal 6.0-15.0 [facility] Comment on above: Performed By: #### P AB, CMP, DIFF CBC ####[address] AST [Catalytic activity/Vol] 33 U/L Normal 13-39 [facility] Comment on above: Performed By: #### P AB, CMP, DIFF CBC ####[place] [id number] [facility] Bilirubin [Mass/Vol] 0.7 mg/dL Normal 0.3-1.0 [facility] Comment on above: Performed By: #### P AB, CMP, DIFF CBC ####[place] [id number] [facility] Calcium [Mass/Vol] 9.8 mg/dL Normal 8.6-10.3 [facility] Comment on above: Performed By: #### P AB, CMP, DIFF CBC ####[place] [id number] [facility] Chloride [Moles/Vol] 94 mmol/L Low 98-107 [facility] Comment on above: Performed By: #### P AB, CMP, DIFF CBC ####[address] CO2 [Moles/Vol] 36.7 mmol/L High 21.0-31.0 [facility] Comment on above: Performed By: #### P AB, CMP, DIFF CBC ####[address] Creatinine [Mass/Vol] 2.96 mg/dL High 0.70-1.30 [facility] Comment on above: Performed By: #### P AB, CMP, DIFF CBC ####[address] Creatinine Clr Calc Pharmacy 22.60 Normal [facility] Comment on above: Performed By: #### P AB, CMP, DIFF CBC ####[address] Estimated GFR 20.434 mL/Min Normal [facility] Comment on above: Performed By: #### P AB, CMP, DIFF CBC ####[address] Globulin (S) [Mass/Vol] 2.8 g/dL Normal T he [facility] Comment on above: Performed By: #### P AB, CMP, DIFF CBC ####[address] Glucose [Mass/Vol] 135 mg/dL High 70-100 [facility] Comment on above: Result Comment: [place] Glucose Reference Range is dependent on time and content of last meal. Glucose of more than 200 mg/dL in a nonstressed, ambulatory subject supports the diagnosis of Diabetes Mellitus. ADA recommended reference range Performed By: #### P AB, CMP, DIFF CBC ####[address] Potassium [Moles/Vol] 3.9 mmol/L Normal 3.5-5.1 [facility] Comment on above: Performed By: #### P AB, CMP, DIFF CBC ####[address] Protein [Mass/Vol] 5.9 g/dL Low 6.4-8.9 [facility] Comment on above: Performed By: #### P AB, CMP, DIFF CBC ####[address] Sodium [Moles/Vol] 137 mmol/L Normal 136-145 [facility] Comment on above: Performed By: #### P AB, CMP, DIFF CBC ####[address] Urea nitrogen [Mass/Vol] 87 mg/dL High 7-25 [facility] Comment on above: Performed By: #### P AB, CMP, DIFF CBC ####[address] Diff and CBCon 12-28-2024 Anisocytosis Ql (Bld) Slight Normal [facility] Comment on above: Performed By: #### P AB, CMP, DIFF CBC ####[address] Erythrocyte distribution width (RBC) [Ratio] 15.4 % High 12.0-14.8 [facility] Comment on above: Performed By: #### P AB, CMP, DIFF CBC ####[address] Hematocrit (Bld) [Volume fraction] 24.0 % Low 38.8-50.0 [facility] Comment on above: Performed By: #### P AB, CMP, DIFF CBC ####[address] Hemoglobin (Bld) [Mass/Vol] 8.3 g/dL Low 13.0-17.0 [facility] Comment on above: Performed By: #### P AB, CMP, DIFF CBC ####[address] Hypochromasia Slight Normal [facility] Comment on above: Performed By: #### P AB, CMP, DIFF CBC ####[address] Lymphocytes/100 WBC (Bld) 9 % Low 18-42 [facility] Comment on above: Performed By: #### P AB, CMP, DIFF CBC ####[address] MCH (RBC) [Entitic mass] 32.3 pg Normal 27.5-35.2 [facility] Comment on above: Performed By: #### P AB, CMP, DIFF CBC ####[address] MCV (RBC) [Entitic vol] 93.8 fL Normal 83.5-101 [facility] Comment on above: Performed By: #### P AB, CMP, DIFF CBC ####[address] Mean Corpuscular HGB Conc 34.5 g/dL Normal 32.5-35.6 [facility] Comment on above: Performed By: #### P AB, CMP, DIFF CBC ####[address] Metamyelocytes 1 % High 0-0 [facility] Comment on above: Performed By: #### P AB, CMP, DIFF CBC ####[address] Monocytes/100 WBC (Bld) 7 % Normal 2-11 [facility] Comment on above: Performed By: #### P AB, CMP, DIFF CBC ####[address] Platelet Estimate Normal Normal Normal [facility] Comment on above: Performed By: #### P AB, CMP, DIFF CBC ####[address] Platelet mean volume (Bld) [Entitic vol] 7.7 fL Normal 6.6-10.1 [facility] Comment on above: Performed By: #### P AB, CMP, DIFF CBC ####[address] Platelet Morphology Normal Normal Normal [facility] Comment on above: Result Comment: PERF ORMED BY: [facility] [address] [place] [address] PATHOLOGIST PIPE CONNECTOR KRISTEL LU M.D. Performed By: #### P AB, CMP, DIFF CBC ####[address] Platelets (Bld) [#/Vol] 178 10*3/uL Normal 150-450 [facility] Comment on above: Performed By: #### P AB, CMP, DIFF CBC ####[address] Polychromasia Slight Normal [facility] Comment on above: Performed By: #### P AB, CMP, DIFF CBC ####[address] RBC (Bld) [#/Vol] 2.56 10*6/uL Low 3.90-5.60 [facility] Comment on above: Performed By: #### P AB, CMP, DIFF CBC ####[address] Segmented neutrophils/100 WBC (Bld) 83 % High 50-70 [facility] Comment on above: Performed By: #### P AB, CMP, DIFF CBC ####[address] WBC (Bld) [#/Vol] 7.7 10*3/uL Normal 4.1-10.5 [facility] Comment on above: Performed By: #### P AB, CMP, DIFF CBC ####[address] Globulin Calc (S) [Mass/Vol] Ordered By: Sotero Black on 12-28-2024 Globulin (S) [Mass/Vol] Serum globulin measurement by calculation (mass/volume) [facility] Prealbuminon 12-28-2024 Prealbumin [Mass/Vol] 13.6 mg/dL Low 17.0-34.0 [facility] Comment on above: Result Comment: PERF ORMED BY: [facility] [address] [place] [address] PATHOLOGIST PIPE CONNECTOR KRISTEL LU M.D. Performed By: #### R ENAL, CBC #### [facility] [address] Prealbumin [Mass/volume] in Serum or PlasmaOrdered By: Sotero Black on 12-28-2024 Prealbumin [Mass/Vol] Prealbumin [Mass/volume] in Serum or Plasma Low 17.0-34.0 [facility] Protein [Mass/volume] in Ser um or PlasmaOrdered By: Sotero Black on 12-28-2024 Protein [Mass/Vol] Protein [Mass/volume] in Serum or Plasma Low 6.4-8.9 [facility] Serum or plasma albumin/glob ulin mass ratioOrdered By: Sotero Black on 12-28-2024 Albumin/Globulin [Mass ratio] Serum or plasma albumin/globulin mass ratio [facility] Basic Metabolic Panelon 12-14 Anion gap [Moles/Vol] 14.0 mmol/L Normal 6.0-15.0 Th e [facility] Comment on above: Performed By: #### C BCNO, MG, BMP ####[facility] Calcium [Mass/Vol] 10.0 mg/dL Significant change down 8.6-10.3 [facility] Comment on above: Performed By: #### C BCNO, MG, BMP ####[facility] Chloride [Moles/Vol] 91 mmol/L Low 98-107 [facility] Comment on above: Performed By: #### C BCNO, MG, BMP ####[facility] CO2 [Moles/Vol] 34.8 mmol/L High 21.0-31.0 [facility] Comment on above: Performed By: #### C BCNO, MG, BMP ####[facility] Creatinine [Mass/Vol] 3.30 mg/dL Significan t change up 0.70-1.30 [facility] Comment on above: Performed By: #### C BCNO, MG, BMP ####[address] Creatinine Clr Calc Pharmacy 20.71 Normal [facility] Comment on above: Performed By: #### C BCNO, MG, BMP ####[place] [address] Estimated GFR 17.934 mL/Min Normal [facility] Comment on above: Performed By: #### C BCNO, MG, BMP ####[place] [address] Glucose [Mass/Vol] 130 mg/dL High 70-100 [facility] Comment on above: Result Comment: [facility] Glucose Reference Range is dependent on time and content of last meal. Glucose of more than 200 mg/dL in a nonstressed, ambulatory subject supports the diagnosis of Diabetes Mellitus. ADA recommended reference range Performed By: #### C BCNO, MG, BMP ####[address] Potassium [Moles/Vol] 3.8 mmol/L Normal 3.5-5.1 [facility] Comment on above: Performed By: #### C BCNO, MG, BMP ####[address] Sodium [Moles/Vol] 136 mmol/L Normal 136-145 [facility] Comment on above: Performed By: #### C BCNO, MG, BMP ####[place] [id number] [facility] Urea nitrogen [Mass/Vol] 89 mg/dL High 7-25 [facility] Comment on above: Performed By: #### C BCNO, MG, BMP ####[place] [id number] [facility] Calcium [Mass/volume] in Ser um or PlasmaOrdered By: Emile Reynolds on 12-27-2024 Calcium [Mass/Vol] Calcium [Mass/volume] in Serum or Plasma Significant change up 8.6-10.3 [facility] Comment on above: Delta: 8.1 on Carbon dioxide, total [Moles /volume] in Serum or PlasmaOrdered By: Emile Reynolds on 12-27-2024 CO2 [Moles/Vol] Carbon dioxide, total [Moles/volume] in Serum or Plasma High 21.0-31.0 [facility] Chloride [Moles/volume] in S alayna or PlasmaOrdered By: Emile Reynolds on 12-27-2024 Chloride [Moles/Vol] Chloride [Moles/volume] in Serum or Plasma Low 98-107 [facility] Creatinine [Mass/volume] in Serum or PlasmaOrdered By: Emile Reynolds on 12-27-2024 Creatinine [Mass/Vol] Creatinine [Mass/volume] in Serum or Plasma Significant change up 0.70-1.30 [facility] Comment on above: Delta: 3.82 on 12/26 Erythrocyte distribution wid th Auto (RBC) [Ratio]Ordered By: Emile Reynolds on 12-27-2024 Erythrocyte distribution width (RBC) [Ratio] Erythrocyte distribution width [Ratio] by Automated count High 12.0-14.8 [facility] Glucose [Mass/volume] in Ser um or PlasmaOrdered By: Emile Reynolds on 12-27-2024 Glucose [Mass/Vol] Glucose [Mass/volume] in Serum or Plasma High 70-100 [facility] Comment on above: ADA recommended refe rence rangeRandom Glucose Reference Range is dependent on time and content of last meal. Glucose of more than 200 mg/dL in a nonstressed, ambulatory subject supports the diagnosis of Diabetes Mellitus. Hematocrit Auto (Bld) [Volum e fraction]Ordered By: Emile Reynolds on 12-27-2024 Hematocrit (Bld) [Volume fraction] Hematocrit [Volume Fraction] of Blood by Automated count Low 38.8-50.0 [facility] Hemoglobin [Mass/volume] in BloodOrdered By: Emile Reynolds on 12-27-2024 Hemoglobin (Bld) [Mass/Vol] Hemoglobin [Mass/volume] in Blood Low 13.0-17.0 [facility] Hemogram CBC Without Diffon 12-27-2024 Erythrocyte distribution width (RBC) [Ratio] 15.8 % High 12.0-14.8 [facility] Comment on above: Performed By: #### C BCBISHOP MG, BMP ####[address] Hematocrit (Bld) [Volume fraction] 24.7 % Low 38.8-50.0 [facility] Comment on above: Performed By: #### C BCBISHOP, MG, BMP ####[address] Hemoglobin (Bld) [Mass/Vol] 8.6 g/dL Low 13.0-17.0 [facility] Comment on above: Performed By: #### C BCBISHOP MG, BMP ####[address] MCH (RBC) [Entitic mass] 32.0 pg Normal 27.5-35.2 [facility] Comment on above: Performed By: #### C BCNO, MG, BMP ####[address] MCV (RBC) [Entitic vol] 92.0 fL Normal 83.5-101 [facility] Comment on above: Performed By: #### C BCNO, MG, BMP ####[address] Mean Corpuscular HGB Conc 34.8 g/dL Normal 32.5-35.6 [facility] Comment on above: Performed By: #### C BCNO, MG, BMP ####[address] Platelet mean volume (Bld) [Entitic vol] 7.6 fL Normal 6.6-10.1 [facility] Comment on above: Result Comment: PERF ORMED BY: [facility] [address] [place] [address] PATHOLOGIST PIPE CONNECTOR KRISTEL LU M.D. Performed By: #### C BCNO, MG, BMP ####[facility] [address] Platelets (Bld) [#/Vol] 171 10*3/uL Normal 150-450 [facility] Comment on above: Performed By: #### C BCNO, MG, BMP ####[facility] RBC (Bld) [#/Vol] 2.69 10*6/uL Low 3.90-5.60 [facility] Comment on above: Performed By: #### C BCNO, MG, BMP ####[place] [address] [place] [id number] [facility] WBC (Bld) [#/Vol] 7.9 10*3/uL Normal 4.1-10.5 [facility] Comment on above: Performed By: #### C BCNO, MG, BMP ####[place] [address] Leukocytes [#/volume] correc bonnie for nucleated erythrocytes in Blood by Automated counOrdered By: Emile Reynolds on 12-27-2024 WBC corrected for nucl RBC Auto (Bld) [#/Vol] Leukocytes [#/volume] corrected for nucleated erythrocytes in Blood by Automated coun 4.1-10.5 [facility] MCH Auto (RBC) [Entitic mass ]Ordered By: Emile Reynolds on 12-27-2024 MCH (RBC) [Entitic mass] MCH [Entitic ma ss] by Automated count 27.5-35.2 [facility] MCHC Auto (RBC) [Mass/Vol]Or dered By: Emile Reynolds on 12-27-2024 MCHC (RBC) [Mass/Vol] MCHC [Mass/volume] by Automated count 32.5-35.6 [facility] MCV Auto (RBC) [Entitic vol] Ordered By: Emile Reynolds on 12-27-2024 MCV (RBC) [Entitic vol] MCV [Entitic vol ume] by Automated count 83.5-101 [facility] Magnesiumon 12-27-2024 Magnesium [Mass/Vol] 2.3 mg/dL Normal 1.9-2.7 [facility] Comment on above: Result Comment: PERF ORMED BY: [facility] [address] [place] [address] PATHOLOGIST PIPE CONNECTOR KRISTEL LU M.D. Performed By: #### C BCNO, MG, BMP ####[facility] [address] [place] [address] [facility] Magnesium [Mass/volume] in S alayna or PlasmaOrdered By: Emile Reynolds on 12-27-2024 Magnesium [Mass/Vol] Magnesium [Mass/volume] in Serum or Plasma 1.9-2.7 [facility] No Panel InformationOrdered By: Emile Reynolds on 12-27-2024 Estimated GFR (CKD-EPI) 17.934 mL/Min [facility] Creatinine Clearance (Chem 20.71 [facility] 17.934 mL/Min [facility] 20.71 [facility] Platelet mean volume Auto (B ld) [Entitic vol]Ordered By: Emile Reynolds on 12-27-2024 Platelet mean volume (Bld) [Entitic vol] Platelet mean volume [Entitic volume] in Blood by Automated count 6.6-10.1 [facility] Platelets Auto (Bld) [#/Vol] Ordered By: Emile Reynolds on 12-27-2024 Platelets (Bld) [#/Vol] Platelets [#/vol ume] in Blood by Automated count 150-450 [facility] Potassium [Moles/volume] in Serum or PlasmaOrdered By: Emile Reynolds on 12-27-2024 Potassium [Moles/Vol] Potassium [Moles/volume] in Serum or Plasma 3.5-5.1 [facility] RBC Auto (Bld) [#/Vol]Ordere d By: Emile Reynolds on 12-27-2024 RBC (Bld) [#/Vol] Erythrocytes [#/volume] in Blood by Automated count Low 3.90-5.60 [facility] Serum or plasma anion gap de terminationOrdered By: Emile Reynolds on 12-27-2024 Anion gap [Moles/Vol] Serum or plasma anion gap determination 6.0-15.0 [facility] Sodium [Moles/volume] in Ser um or PlasmaOrdered By: Emile Reynolds on 12-27-2024 Sodium [Moles/Vol] Sodium [Moles/volume] in Serum or Plasma 136-145 [facility] Urea nitrogen [Mass/volume] in Serum or PlasmaOrdered By: Emile Reynolds on 12-27-2024 Urea nitrogen [Mass/Vol] Urea nitrogen [Mass/volume] in Serum or Plasma High 7-25 [facility] Basic Metabolic Panelon 12-14 Anion gap [Moles/Vol] 12.5 mmol/L Normal 6.0-15.0 e [facility] Comment on above: Performed By: #### B MP, MG, CBC ####[address] Calcium [Mass/Vol] 8.1 mg/dL Low 8.6-10.3 [facility] Comment on above: Performed By: #### B MP, MG, CBC ####[address] Chloride [Moles/Vol] 96 mmol/L Low 98-107 [facility] Comment on above: Performed By: #### B MP, MG, CBC ####[address] CO2 [Moles/Vol] 31.5 mmol/L High 21.0-31.0 [facility] Comment on above: Performed By: #### B MP, MG, CBC ####[place] [id number] [facility] Creatinine [Mass/Vol] 3.82 mg/dL High 0.70-1.30 [facility] Comment on above: Performed By: #### B MP, MG, CBC ####[place] [id number] [facility] Creatinine Clr Calc Pharmacy 17.90 Normal [facility] Comment on above: Performed By: #### B MP, MG, CBC ####[address] Estimated GFR 15.046 mL/Min Normal [facility] Comment on above: Performed By: #### B MP, MG, CBC ####[facility] Glucose [Mass/Vol] 111 mg/dL High 70-100 [facility] Comment on above: Result Comment: [place] Glucose Reference Range is dependent on time and content of last meal. Glucose of more than 200 mg/dL in a nonstressed, ambulatory subject supports the diagnosis of Diabetes Mellitus. ADA recommended reference range Performed By: #### B MP, MG, CBC ####[facility] Potassium [Moles/Vol] 4.0 mmol/L Normal 3.5-5.1 [facility] Comment on above: Performed By: #### B MP, MG, CBC ####[place] [address] Sodium [Moles/Vol] 136 mmol/L Normal 136-145 [facility] Comment on above: Performed By: #### B MP, MG, CBC ####[place] [address] Urea nitrogen [Mass/Vol] 85 mg/dL High 7-25 [facility] Comment on above: Performed By: #### B MP, MG, CBC ####[facility] Basophils Auto (Bld) [#/Vol] Ordered By: Emile Reynolds on 12-26-2024 Basophils (Bld) [#/Vol] Automated basoph il count 0.0-0.2 [facility] Basophils/100 WBC Auto (Bld) Ordered By: Emile Reynolds on 12-26-2024 Basophils/100 WBC (Bld) Automated basophil % . [facility] Complete Blood Count Auto Di ffon 12-26-2024 Basophils (Bld) [#/Vol] 0.0 10*3/uL Normal 0.0-0.2 [facility] Comment on above: Result Comment: PERF ORMED BY: [place] [address] PATHOLOGIST PIPE CONNECTOR KRISTEL LU M.D. Performed By: #### B MP, MG, CBC ####[address] Basophils/100 WBC (Bld) 0.2 % Normal . T jeff [facility] Comment on above: Performed By: #### B MP, MG, CBC ####[address] Eosinophils (Bld) [#/Vol] 0.3 10*3/uL Normal 0.0-0.45 [facility] Comment on above: Performed By: #### B MP, MG, CBC ####[address] Eosinophils/100 WBC (Bld) 4.3 % Normal . [facility] Comment on above: Performed By: #### B MP, MG, CBC ####[address] Erythrocyte distribution width (RBC) [Ratio] 14.8 % Normal 12.0-14.8 [facility] Comment on above: Performed By: #### B MP, MG, CBC ####[address] Hematocrit (Bld) [Volume fraction] 21.1 % Low 38.8-50.0 [facility] Comment on above: Performed By: #### B MP, MG, CBC ####[address] Hemoglobin (Bld) [Mass/Vol] 7.4 g/dL Low 13.0-17.0 [facility] Comment on above: Performed By: #### B MP, MG, CBC ####[address] Lymphocytes (Bld) [#/Vol] 0.7 10*3/uL Low 1.00-4.8 [facility] Comment on above: Performed By: #### B MP, MG, CBC ####[address] Lymphocytes/100 WBC (Bld) 10.2 % Normal . [facility] Comment on above: Performed By: #### B MP, MG, CBC ####[address] MCH (RBC) [Entitic mass] 32.9 pg Normal 27.5-35.2 [facility] Comment on above: Performed By: #### B MP, MG, CBC ####[address] MCV (RBC) [Entitic vol] 93.7 fL Normal 83.5-101 [facility] Comment on above: Performed By: #### B MP, MG, CBC ####[address] Mean Corpuscular HGB Conc 35.1 g/dL Normal 32.5-35.6 [facility] Comment on above: Performed By: #### B MP, MG, CBC ####[address] Monocytes (Bld) [#/Vol] 0.9 10*3/uL High 0.0-0.8 [facility] Comment on above: Performed By: #### B MP, MG, CBC ####[address] Monocytes/100 WBC (Bld) 13.1 % Normal . [facility] Comment on above: Performed By: #### B MP, MG, CBC ####[address] Neutrophils (Bld) [#/Vol] 5.0 10*3/uL Normal 1.8-7.7 [facility] Comment on above: Performed By: #### B MP, MG, CBC ####[address] Neutrophils/100 WBC (Bld) 72.2 % Normal . [facility] Comment on above: Performed By: #### B MP, MG, CBC ####[address] NRBC% 0.1 /100{WBC} Normal 0-0.5 [facility] Comment on above: Performed By: #### B MP, MG, CBC ####[address] Platelet mean volume (Bld) [Entitic vol] 8.0 fL Normal 6.6-10.1 [facility] Comment on above: Performed By: #### B MP, MG, CBC ####[address] Platelets (Bld) [#/Vol] 142 10*3/uL Low 150-450 [facility] Comment on above: Performed By: #### B MP, MG, CBC ####[address] RBC (Bld) [#/Vol] 2.25 10*6/uL Low 3.90-5.60 [facility] Comment on above: Performed By: #### B MP, MG, CBC ####[address] WBC (Bld) [#/Vol] 7.0 10*3/uL Normal 4.1-10.5 [facility] Comment on above: Performed By: #### B MP, MG, CBC ####[address] Eosinophils Auto (Bld) [#/Vo l]Ordered By: Emile Reynolds on 12-26-2024 Eosinophils (Bld) [#/Vol] Automated eosi nophil count 0.0-0.45 [facility] Eosinophils/100 WBC Auto (Bl d)Ordered By: Emile Reynolds on 12-26-2024 Eosinophils/100 WBC (Bld) Automated eosi nophil % . [facility] Lymphocytes Auto (Bld) [#/Vo l]Ordered By: Emile Reynolds on 12-26-2024 Lymphocytes (Bld) [#/Vol] Lymphocytes [#/volume] in Blood by Automated count Low 1.00-4.8 [facility] Lymphocytes/100 WBC Auto (Bl d)Ordered By: Emile Reynolds on 12-26-2024 Lymphocytes/100 WBC (Bld) Lymphocytes/10 0 leukocytes in Blood by Automated count . [facility] Magnesiumon 12-26-2024 Magnesium [Mass/Vol] 2.5 mg/dL Normal 1.9-2.7 [facility] Comment on above: Result Comment: PERF ORMED BY: [facility] [address] [place] [address] PATHOLOGIST PIPE CONNECTOR KRISTEL LU M.D. Performed By: #### B MP, MG, CBC ####[facility] [place] [address] [facility] Monocytes Auto (Bld) [#/Vol] Ordered By: Emile Reynolds on 12-26-2024 Monocytes (Bld) [#/Vol] Automated blood monocyte count High 0.0-0.8 [facility] Monocytes/100 WBC Auto (Bld) Ordered By: Emile Reynolds on 12-26-2024 Monocytes/100 WBC (Bld) Automated monocyte % . [facility] Neutrophils Auto (Bld) [#/Vo l]Ordered By: Emile Reynolds on 12-26-2024 Neutrophils (Bld) [#/Vol] Neutrophils [#/volume] in Blood by Automated count 1.8-7.7 [facility] Neutrophils/100 WBC Auto (Bl d)Ordered By: Emile Reynolds on 12-26-2024 Neutrophils/100 WBC (Bld) Automated neut rophil % . [facility] Nucleated erythrocytes [Pres ence] in Blood by Automated countOrdered By: Emile Reynolds on 12-26-2024 Nucleated RBC Auto Ql (Bld) Nucleated erythrocytes [Presence] in Blood by Automated count 0-0.5 [facility] Pathology study report docum entOrdered By: Rome Leslie on 12-26-2024 Pathology study [facility] Other Phone: WBC Auto (Bld) [#/Vol]Ordere d By: Emile Reynolds on 12-26-2024 WBC (Bld) [#/Vol] Leukocytes [#/volume] in Blood by Automated count 4.1-10.5 [facility] Basic Metabolic Panelon 12-14 Anion gap [Moles/Vol] 10.1 mmol/L Normal 6.0-15.0 [facility] e [facility] Comment on above: Performed By: #### R ENAL, CBC #### [address] Calcium [Mass/Vol] 7.9 mg/dL Low 8.6-10.3 [facility] Comment on above: Performed By: #### R ENAL, CBC #### [address] Chloride [Moles/Vol] 97 mmol/L Low 98-107 [facility] Comment on above: Performed By: #### R ENAL, CBC #### [address] CO2 [Moles/Vol] 32.0 mmol/L High 21.0-31.0 [facility] Comment on above: Performed By: #### R ENAL, CBC #### [address] Creatinine [Mass/Vol] 3.34 mg/dL High 0.70-1.30 [facility] Comment on above: Performed By: #### R ENAL, CBC #### [place] [address] [place] Creatinine Clr Calc Pharmacy 20.47 Normal [facility] Comment on above: Performed By: #### R ENAL, CBC #### [place] [address] [place] Estimated GFR 17.677 mL/Min Normal [facility] Comment on above: Performed By: #### R ENAL, CBC #### [address] Glucose [Mass/Vol] 135 mg/dL High 70-100 [facility] Comment on above: Result Comment: [place] Glucose Reference Range is dependent on time and content of last meal. Glucose of more than 200 mg/dL in a nonstressed, ambulatory subject supports the diagnosis of Diabetes Mellitus. ADA recommended reference range Performed By: #### R ENAL, CBC #### [address] Potassium [Moles/Vol] 4.1 mmol/L Normal 3.5-5.1 [facility] Comment on above: Performed By: #### R ENAL, CBC #### [address] Sodium [Moles/Vol] 135 mmol/L Low 136-145 [facility] Comment on above: Performed By: #### R ENAL, CBC #### [address] Urea nitrogen [Mass/Vol] 81 mg/dL High 7-25 [facility] Comment on above: Performed By: #### R ENAL, CBC #### [address] Complete Blood Count Auto Di ffon 12-25-2024 Basophils (Bld) [#/Vol] 0.0 10*3/uL Normal 0.0-0.2 [facility] Comment on above: Result Comment: PERF ORMED BY: [place] [address] PATHOLOGIST PIPE CONNECTOR KRISTEL LU M.D. Performed By: #### R ENAL, CBC #### [address] Basophils/100 WBC (Bld) 0.2 % Normal . T he [facility] Comment on above: Performed By: #### R ENAL, CBC #### [place] [address] [place] Eosinophils (Bld) [#/Vol] 0.1 10*3/uL Normal 0.0-0.45 [facility] Comment on above: Performed By: #### R ENAL, CBC #### [address] Eosinophils/100 WBC (Bld) 1.4 % Normal . [facility] Comment on above: Performed By: #### R ENKIMMIE, CBC #### [address] Erythrocyte distribution width (RBC) [Ratio] 14.6 % Normal 12.0-14.8 [facility] Comment on above: Performed By: #### R ENAL, CBC #### [address] Hematocrit (Bld) [Volume fraction] 20.9 % Low 38.8-50.0 [facility] Comment on above: Performed By: #### R ADEEL, CBC #### [address] Hemoglobin (Bld) [Mass/Vol] 7.2 g/dL Low 13.0-17.0 [facility] Comment on above: Performed By: #### R ADEEL, CBC #### [address] Lymphocytes (Bld) [#/Vol] 0.7 10*3/uL Low 1.00-4.8 [facility] Comment on above: Performed By: #### R ADEEL, CBC #### [address] Lymphocytes/100 WBC (Bld) 9.0 % Normal . [facility] Comment on above: Performed By: #### R ADEEL, CBC #### [address] MCH (RBC) [Entitic mass] 32.8 pg Normal 27.5-35.2 [facility] Comment on above: Performed By: #### R ENKIMMIE, CBC #### [address] MCV (RBC) [Entitic vol] 95.3 fL Normal 83.5-101 T he [facility] Comment on above: Performed By: #### R ADEEL, CBC #### [address] Mean Corpuscular HGB Conc 34.4 g/dL Normal 32.5-35.6 [facility] Comment on above: Performed By: #### R ADEEL, CBC #### [address] Monocytes (Bld) [#/Vol] 0.8 10*3/uL Normal 0.0-0.8 [facility] Comment on above: Performed By: #### R ADEEL, CBC #### [address] Monocytes/100 WBC (Bld) 10.2 % Normal . T he [facility] Comment on above: Performed By: #### R ADEEL, CBC #### [address] Neutrophils (Bld) [#/Vol] 6.3 10*3/uL Normal 1.8-7.7 [facility] Comment on above: Performed By: #### R ADEEL, CBC #### [address] Neutrophils/100 WBC (Bld) 79.2 % Normal . [facility] Comment on above: Performed By: #### R ADEEL, CBC #### [address] NRBC% 0.1 /100{WBC} Normal 0-0.5 [facility] Comment on above: Performed By: #### R ADEEL, CBC #### [address] Platelet mean volume (Bld) [Entitic vol] 8.0 fL Normal 6.6-10.1 [facility] Comment on above: Performed By: #### R ENKIMMIE, CBC #### [address] Platelets (Bld) [#/Vol] 137 10*3/uL Low 150-450 [facility] Comment on above: Performed By: #### R ADEEL, CBC #### [address] RBC (Bld) [#/Vol] 2.19 10*6/uL Low 3.90-5.60 [facility] Comment on above: Performed By: #### R ADEEL, CBC #### [facility] [address] WBC (Bld) [#/Vol] 8.0 10*3/uL Normal 4.1-10.5 [facility] Comment on above: Performed By: #### R ENAL, CBC #### [facility] [address] Glucose Glucometer (BldC) [M ass/Vol]Ordered By: Emile Reynolds on 12-25-2024 Glucose [Mass/Vol] Capillary blood glucose measurement by glucometer (mass/volume) [facility] Comment on above: Random Glucose Refer ence Range is dependent on time and content of last meal. Glucose of more than 200 mg/dL in a nonstressed, ambulatory subject supports the diagnosis of Diabetes Mellitus. Glucose Poct Glucometerson 0 12-25-2024 Glucose [Mass/Vol] 185 mg/dL Normal [facility] Comment on above: Result Comment: [place] om Glucose Reference Range is dependent on time and content of last meal. Glucose of more than 200 mg/dL in a nonstressed, ambulatory subject supports the diagnosis of Diabetes Mellitus. PERFORMED BY: [place] [address] PATHOLOGIST PIPE CONNECTOR KRISTEL LU M.D. Performed By: #### R ADEEL, CBC #### [address] Magnesiumon 12-25-2024 Magnesium [Mass/Vol] 2.5 mg/dL Normal 1.9-2.7 [facility] Comment on above: Result Comment: PERF ORMED BY: [place] [address] PATHOLOGIST PIPE CONNECTOR KRISTEL LU M.D. Performed By: #### R ADEEL, CBC #### [address] Basic Metabolic Panelon 12-14 Anion gap [Moles/Vol] 11.2 mmol/L Normal 6.0-15.0 [facility] Comment on above: Performed By: #### KOLBY Baxter, CBCNO ####[place] [address] [place] [id number] [facility] Calcium [Mass/Vol] 7.7 mg/dL Low 8.6-10.3 [facility] Comment on above: Performed By: #### KOLBY Baxter, CBCNO ####[place] [id number] [facility] Chloride [Moles/Vol] 101 mmol/L Normal 98-107 [facility] Comment on above: Performed By: #### KOLBY Baxter, CBCNO ####[place] [id number] [facility] CO2 [Moles/Vol] 30.1 mmol/L Normal 21.0-31.0 [facility] Comment on above: Performed By: #### KOLBY Baxter, CBCNO ####[place] [id number] [facility] Creatinine [Mass/Vol] 3.40 mg/dL High 0.70-1.30 [facility] Comment on above: Performed By: #### KOLBY Baxter, CBCNO ####[place] [id number] [facility] Creatinine Clr Calc Pharmacy 20.11 Normal [facility] Comment on above: Performed By: #### KOLBY Baxter, CBCNO ####[place] [id number] [facility] Estimated GFR 17.303 mL/Min Normal [facility] Comment on above: Performed By: #### KOLBY Baxter, CBCNO ####[place] [id number] [facility] Glucose [Mass/Vol] 158 mg/dL High 70-100 [facility] Comment on above: Result Comment: [place] Glucose Reference Range is dependent on time and content of last meal. Glucose of more than 200 mg/dL in a nonstressed, ambulatory subject supports the diagnosis of Diabetes Mellitus. ADA recommended reference range Performed By: #### KOLBY Baxter, CBCNO ####[address] Potassium [Moles/Vol] 4.3 mmol/L Normal 3.5-5.1 [facility] Comment on above: Performed By: #### KOLBY Baxter, CBCNO ####[address] Sodium [Moles/Vol] 138 mmol/L Normal 136-145 [facility] Comment on above: Performed By: #### KOLBY Baxter, CBCNO ####[address] Urea nitrogen [Mass/Vol] 70 mg/dL High 7-25 [facility] Comment on above: Performed By: #### KOLBY Baxter, CBCNO ####[address] Hemogram CBC Without Diffon 12-24-2024 Erythrocyte distribution width (RBC) [Ratio] 14.2 % Normal 12.0-14.8 [facility] Comment on above: Performed By: #### KOLBY Baxter, CBCNO ####[address] Hematocrit (Bld) [Volume fraction] 25.3 % Low 38.8-50.0 [facility] Comment on above: Performed By: #### KOLBY Baxter, CBCNO ####[address] Hemoglobin (Bld) [Mass/Vol] 8.7 g/dL Low 13.0-17.0 [facility] Comment on above: Performed By: #### KOLBY Baxter, CBCNO ####[address] MCH (RBC) [Entitic mass] 32.8 pg Normal 27.5-35.2 [facility] Comment on above: Performed By: #### KOLBY Baxter, CBCNO ####[address] [place] [address] [facility] MCV (RBC) [Entitic vol] 95.5 fL Normal 83.5-101 T he [facility] Comment on above: Performed By: #### KOLBY Baxter, CBCNO ####[address] Mean Corpuscular HGB Conc 34.3 g/dL Normal 32.5-35.6 [facility] Comment on above: Performed By: #### KOLBY Baxter, CBCNO ####[address] Platelet mean volume (Bld) [Entitic vol] 7.7 fL Normal 6.6-10.1 [facility] Comment on above: Result Comment: PERF ORMED BY: [facility] [address] [place] [address] PATHOLOGIST PIPE CONNECTOR KRISTEL LU M.D. Performed By: #### KOLBY Baxter, CBCNO ####[address] Platelets (Bld) [#/Vol] 143 10*3/uL Low 150-450 [facility] Comment on above: Performed By: #### KOLBY Baxter, CBCNO ####[address] RBC (Bld) [#/Vol] 2.64 10*6/uL Low 3.90-5.60 [facility] Comment on above: Performed By: #### KOLBY Baxter, CBCNO ####[address] WBC (Bld) [#/Vol] 10.8 10*3/uL High 4.1-10.5 [facility] Comment on above: Performed By: #### KOLBY Baxter, CBCNO ####[address] Magnesiumon 12-24-2024 Magnesium [Mass/Vol] 2.4 mg/dL Normal 1.9-2.7 [facility] Comment on above: Result Comment: PERF ORMED BY: [facility] [address] [place] [id number] PATHOLOGIST PIPE CONNECTOR KRISTEL LU M.D. Performed By: #### M KOLBY Narayan CBCNO ####[facility] [address] [place] [address] [facility] Appearance of UrineOrdered B y: Emile Reynolds on 12-23-2024 Appearance (U) Urine appearance Clear [facility] Arterial Blood Gason 025 ABG Base Excess -0.9 mmol/L Normal -3.0-3.0 [facility] Comment on above: Performed By: #### A BG ####Point of Care testing, ABG Frac Inspired O2 100 % Normal [facility] Comment on above: Performed By: #### A BG ####Point of Care testing, ABG Oxygen Content 6.4 mmol/L Low 6.6-9.7 [facility] Comment on above: Performed By: #### A BG ####Point of Care testing, ABG Oxygen Saturation 98.8 % Normal 95.0-100.0 [facility] Comment on above: Performed By: #### A BG ####Point of Care testing, ABG PCO2 37.6 mm[Hg] Normal 35.0-45.0 [facility] Comment on above: Performed By: #### A BG ####Point of Care testing, ABG PEEP 6 cmH20 Normal [facility] Comment on above: Performed By: #### A BG ####Point of Care testing, ABG PH 7.41 Normal 7.35-7.45 [facility] Comment on above: Performed By: #### A BG ####Point of Care testing, ABG PO2 170.6 mm[Hg] Off scale high 80.0-100.0 [facility] Comment on above: Performed By: #### A BG ####Point of Care testing, ABG Pressure Support 6.0 cmH20 Normal [facility] Comment on above: Performed By: #### A BG ####Point of Care testing, Oxygen Device BiPAP Normal [facility] Comment on above: Performed By: #### A BG ####Point of Care testing, Respiratory Critical Normal [facility] Comment on above: Result Comment: Crit ical Value called on: 12/23/2024 at 21:14 PERFORMED BY: [facility] [address] [place] [address] PATHOLOGIST PIPE CONNECTOR KRISTEL LU M.D. Performed By: #### A BG ####Point of Care testing, VBG Draw Site Right Radial Normal [facility] Comment on above: Performed By: #### A BG ####Point of Care testing, Arterial Blood GasOrdered By : Emile Reynolds on 12-23-2024 CO2 [Moles/Vol] 24.6 mmol/L Normal 23.0-27.0 [facility] Comment on above: Performed By: #### A BG ####Point of Care testing, HCO3 (Bld) [Moles/Vol] 23.5 mmol/L Normal 23.0-29.0 [facility] Comment on above: Performed By: #### A BG ####Point of Care testing, Bacteria [Presence] in Urine by AutomatedOrdered By: Emile Reynolds on 12-23-2024 Bacteria Auto Ql (U) Bacteria [Presence] in Urine by Automated High None Seen [facility] Bilirubin Test strip Ql (U)O rdered By: Emile Reynolds on 12-23-2024 Bilirubin Ql (U) Bilirubin.total [Presence] in Urine by Test strip Negative [facility] Color Auto (U)Ordered By: Nirav Reynolds on 12-23-2024 Color (U) Color of Urine by Auto Yellow [facility] Complete Blood Count Auto Di ffon 12-23-2024 Basophils (Bld) [#/Vol] 0.0 10*3/uL Normal 0.0-0.2 [facility] Comment on above: Order Comment: Comme nt send as soon as patient arrives Result Comment: PERF ORMED BY: [facility] [address] [place] [address] PATHOLOGIST PIPE CONNECTOR KRISTEL LU M.D. Performed By: #### C BC #### [address] Basophils/100 WBC (Bld) 0.2 % Normal . T [facility] Comment on above: Order Comment: Comme nt send as soon as patient arrives Performed By: #### C BC #### [place] [address] [place] Eosinophils (Bld) [#/Vol] 0.0 10*3/uL Normal 0.0-0.45 [facility] Comment on above: Order Comment: Comme nt send as soon as patient arrives Performed By: #### C BC #### [address] Eosinophils/100 WBC (Bld) 0.1 % Normal . [facility] Comment on above: Order Comment: Comme nt send as soon as patient arrives Performed By: #### C BC #### [address] Erythrocyte distribution width (RBC) [Ratio] 14.8 % Normal 12.0-14.8 [facility] Comment on above: Order Comment: Comme nt send as soon as patient arrives Performed By: #### C BC #### [address] Hematocrit (Bld) [Volume fraction] 29.5 % Low 38.8-50.0 [facility] Comment on above: Order Comment: Comme nt send as soon as patient arrives Performed By: #### C BC #### [address] Hemoglobin (Bld) [Mass/Vol] 9.9 g/dL Low 13.0-17.0 [facility] Comment on above: Order Comment: Comme nt send as soon as patient arrives Performed By: #### C BC #### [address] Lymphocytes (Bld) [#/Vol] 0.4 10*3/uL Low 1.00-4.8 [facility] Comment on above: Order Comment: Comme nt send as soon as patient arrives Performed By: #### C BC #### [address] Lymphocytes/100 WBC (Bld) 3.3 % Normal . [facility] Comment on above: Order Comment: Comme nt send as soon as patient arrives Performed By: #### C BC #### [address] MCH (RBC) [Entitic mass] 31.9 pg Normal 27.5-35.2 [facility] Comment on above: Order Comment: Comme nt send as soon as patient arrives Performed By: #### C BC #### [address] MCV (RBC) [Entitic vol] 95.5 fL Normal 83.5-101 [facility] Comment on above: Order Comment: Comme nt send as soon as patient arrives Performed By: #### C BC #### [address] Mean Corpuscular HGB Conc 33.4 g/dL Normal 32.5-35.6 [facility] Comment on above: Order Comment: Comme nt send as soon as patient arrives Performed By: #### C BC #### [address] Monocytes (Bld) [#/Vol] 0.8 10*3/uL Normal 0.0-0.8 [facility] Comment on above: Order Comment: Comme nt send as soon as patient arrives Performed By: #### C BC #### [place] [address] [place] Monocytes/100 WBC (Bld) 6.6 % Normal . [facility] Comment on above: Order Comment: Comme nt send as soon as patient arrives Performed By: #### C BC #### [place] [address] [place] Neutrophils (Bld) [#/Vol] 11.3 10*3/uL High 1.8-7.7 [facility] Comment on above: Order Comment: Comme nt send as soon as patient arrives Performed By: #### C BC #### [address] Neutrophils/100 WBC (Bld) 89.8 % Normal . [facility] Comment on above: Order Comment: Comme nt send as soon as patient arrives Performed By: #### C BC #### [address] NRBC% 0.0 /100{WBC} Normal 0-0.5 [facility] Comment on above: Order Comment: Comme nt send as soon as patient arrives Performed By: #### C BC #### [address] Platelet mean volume (Bld) [Entitic vol] 7.5 fL Normal 6.6-10.1 [facility] Comment on above: Order Comment: Comme nt send as soon as patient arrives Performed By: #### C BC #### [place] [address] [place] Platelets (Bld) [#/Vol] 149 10*3/uL Low 150-450 [facility] Comment on above: Order Comment: Comme nt send as soon as patient arrives Performed By: #### C BC #### [place] [address] [place] RBC (Bld) [#/Vol] 3.09 10*6/uL Low 3.90-5.60 [facility] Comment on above: Order Comment: Comme nt send as soon as patient arrives Performed By: #### C BC #### [place] [address] [place] WBC (Bld) [#/Vol] 12.5 10*3/uL High 4.1-10.5 [facility] Comment on above: Order Comment: Comme nt send as soon as patient arrives Performed By: #### C BC #### [address] [place] [address] [place] Dipstick and Microscopicon 0 12-23-2024 Appearance (U) Clear Normal Clear [facility] Comment on above: Order Comment: Comme nt results to PCP Dr Linda and [facility] Performed By: #### R ENAL, CBC #### [facility] [address] [place] [id number] [place] Bacteria,Urine 1+ High None Seen [facility] Comment on above: Order Comment: Comme nt results to PCP Dr Linda and [facility] Performed By: #### R ENAL, CBC #### [facility] [address] [place] [address] [place] Bilirubin,Urine Negative Normal Negative [facility] Comment on above: Order Comment: Comme nt results to PCP Dr Linda and [facility] Performed By: #### R ENAL, CBC #### [place] [address] [place] Color (U) Light-Yellow Normal Yellow [facility] Comment on above: Order Comment: Comme nt results to PCP Dr Linda and [facility] Performed By: #### R ENAL, CBC #### [place] [address] [place] Glucose Ql (U) Normal Normal Normal [facility] Comment on above: Order Comment: Comme nt results to PCP Dr Linda and [facility] Performed By: #### R ENAL, CBC #### [place] [address] [place] Hyaline Casts,Urine None Normal 0-8 [facility] Comment on above: Order Comment: Comme nt results to PCP Dr Linda and [facility] Performed By: #### R ENAL, CBC #### [facility] [address] [place] [address] [place] Ketones Ql (U) Negative Normal Negative [facility] Comment on above: Order Comment: Comme nt results to PCP Dr Linda and [facility] Performed By: #### R ENAL, CBC #### [place] [address] [place] Leukocyte esterase Test strip Ql (U) Negative Normal Negative [facility] Comment on above: Order Comment: Comme nt results to PCP Dr Linda and [facility] Performed By: #### R ENAL, CBC #### [address] Mucus,Urine Rare Normal [facility] Comment on above: Order Comment: Comme nt results to PCP Dr Linda and [facility] Result Comment: PERF ORMED BY: [place] [address] PATHOLOGIST PIPE CONNECTOR KRISTEL LU M.D. Performed By: #### R ENAL, CBC #### [address] Nitrite,Urine Negative Normal Negative [facility] Comment on above: Order Comment: Comme nt results to PCP Dr Linda and [facility] Performed By: #### R ENAL, CBC #### [address] Occult Blood,Urine Trace High Negative [facility] Comment on above: Order Comment: Comme nt results to PCP Dr Linda and [facility] Result Comment: PERF ORMED BY: [place] [address] PATHOLOGIST PIPE CONNECTOR KRISTEL LU M.D. Performed By: #### R ENAL, CBC #### [address] pH (U) 5.5 [pH] Normal 5.0-9.0 [facility] Comment on above: Order Comment: Comme nt results to PCP Dr Linda and [facility] Performed By: #### R ENAL, CBC #### [place] [address] [place] Protein (U) [Mass/Vol] 30 mg/dL High Negative Th e [facility] Comment on above: Order Comment: Comme nt results to PCP Dr Linda and [facility] Performed By: #### R ENAL, CBC #### [address] RBC,Urine 5-9 High 0-4 [facility] Comment on above: Order Comment: Comme nt results to PCP Dr Linda and [facility] Performed By: #### R ENAL, CBC #### [address] Specificy Rogers,Urine 1.017 Normal 1.001-1.030 [facility] Comment on above: Order Comment: Comme nt results to PCP Dr Linda and [facility] Performed By: #### R ENAL, CBC #### [address] Squamous Epithelial Cell,Urine 1-2 Normal 0-2 [facility] Comment on above: Order Comment: Comme nt results to PCP Dr Linda and [facility] Performed By: #### R ENAL, CBC #### [address] Urobilinogen,Urine Normal Normal Normal [facility] Comment on above: Order Comment: Comme nt results to PCP Dr Linda and [facility] Performed By: #### R ENAL, CBC #### [address] WBC,Urine 5-9 High 0-4 [facility] Comment on above: Order Comment: Comme nt results to PCP Dr Linda and [facility] Performed By: #### R ENAL, CBC #### [address] Epithelial cells.squamous [# /area] in Urine sediment by Automated countOrdered By: Emile Reynolds on 12-23-2024 Epithelial cells.squamous Auto (Urine sed) [#/Area] Epithelial cells.squamous [#/area] in Urine sediment by Automated count 0-2 [facility] Erythrocytes [#/area] in Uri ne sediment by Automated countOrdered By: Emile Reynolds on 12-23-2024 RBC Auto (Urine sed) [#/Area] Erythrocytes [#/area] in Urine sediment by Automated count High 0-4 [facility] Glucose Poct Glucometerson 0 12-23-2024 Glucose [Mass/Vol] 145 mg/dL Normal [facility] Comment on above: Result Comment: [place] Glucose Reference Range is dependent on time and content of last meal. Glucose of more than 200 mg/dL in a nonstressed, ambulatory subject supports the diagnosis of Diabetes Mellitus. PERFORMED BY: [place] [address] PATHOLOGIST PIPE CONNECTOR KRISTEL LU M.D. Performed By: #### R ENAL, CBC #### [facility] [address] [place] [address] [place] Glucose [Mass/volume] in Uri ne by Test stripOrdered By: Emile Reynolds on 12-23-2024 Glucose Test strip (U) [Mass/Vol] Glucose [Mass/volume] in Urine by Test strip Normal [facility] Hemoglobin Test strip Ql (U) Ordered By: Emile Reynolds on 12-23-2024 Hemoglobin Ql (U) Hemoglobin [Presence] in Urine by Test strip High Negative [facility] Hyaline casts [#/area] in Ur ine sediment by Automated countOrdered By: Emile Reynolds on 12-23-2024 Hyaline casts Auto (Urine sed) [#/Area] Hyaline casts [#/area] in Urine sediment by Automated count 0-8 [facility] Ketones Test strip Ql (U)Ord ered By: Emile Reynolds on 12-23-2024 Ketones Ql (U) Ketones [Presence] in Urine by Test strip Negative [facility] Vijay 12-23-2024 L Specimen: [id number] Received: 12/23/24 Status: ДМИТРИЙ Vickey Num: [id number] Spec Type: Surgical Subm Dr: Walker Soria MD Tissues: A Femoral Head - Fracture (RT HIP) Procedures: HE/2, Gross/Micro L4, Decalcification Age/ Patient Sex Location Account Attending Physician Delano Ren 84/M 4N [id number] Emile Reynolds DO SPEC NUM: [id number] RECD: 12/23/24 STATUS: ДМИТРИЙ BARRY NUM: [id number] [place]: 12/23/24- [facility] [place] DR: Walker Soria MD ENTERED: 12/23/[address] [facility] [address]: RHIANNA TYPE: Surgical DEPT: S ORDERED: HE/2, Gross/Micro L4, Decalcification ORDERED: HE/2, Gross/Micro L4, Decalcification Pathological Diagnosis Right femoral head, right hip arthroplasty: - 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 Clinical Information Right hip fracture Gross Description Received in formalin labeled with the patients name, date of , and bone and tissue is a femoral head, 4.7 x 4.2 x 3.8 cm with detached bone fragments, 3.8 x 4 x 2 cm in aggregate. The articular surface is smooth and glistening with focal regions of granular degeneration. The point of attachment for the femoral neck is rough and irregular, 4.5 x 3.7 cm. The point of attachment for the femoral neck displays a dusky rim of bone, up to 1.5 cm in thickness, while the fragmented bone displays entirely dusky cut surfaces. The remaining medullary bone within the femoral head is staley, firm and uniform. Martial Arts Instructor sections are submitted in A1?A2 after decalcification in rapid Stephon immuno. (2, ss, [id number] A) Microscopic Description Microscopic examination is performed. Specimen: [id number] Received: 12/23/24 Status: ДМИТРИЙ Barry Num: [id number] Spec Type: Surgical Subm Dr: Walker Soria MD Tissues: A Femoral Head - Fracture (RT HIP) Procedures: HE/2, Gross/Micro L4, Decalcification Patient: Delano Ren [id number] (Continued) Specimen: [id number] Received: 12/23/24 (Continued) Signed (signature on file) Rome Leslie MD 12/26/24 1327 Specimen: [id number] Received: 12/23/24 Status: ДМИТРИЙ Barry Num: [id number] Spec Type: Surgical Subm Dr: aWlker Soria MD Tissues: A Femoral Head - Fracture (RT HIP) Procedures: HE/2, Gross/Micro L4, Decalcification Patient: Delano Ren [id number] (Continued) Specimen: [id number] Received: 12/23/24 (Continued) CPT Codes 45367 Specimen: [id number] Received: 12/23/24 Status: ДМИТРИЙ Barry Num: [id number] Spec Type: Surgical Subm Dr: Walker Soria MD Tissues: A Femoral Head - Fracture (RT HIP) Procedures: HE/2, Gross/Micro L4, Decalcification Patient: Delano Ren [id number] (Continued) Signed (signature on file) Rome Leslie MD 12/26/24 1327 Normal [facility] LeukoReduced RBCon LeukoReduced RBC TRANSFUSED 12/26/24 1424 Normal [facility] Leukocyte esterase [Presence ] in Urine by Test stripOrdered By: Emile Reynolds on 12-23-2024 Leukocyte esterase Test strip Ql (U) Leukocyte esterase [Presence] in Urine by Test strip Negative [facility] Leukocytes [#/area] in Urine sediment by Automated countOrdered By: Emile Reynolds on 12-23-2024 WBC Auto (Urine sed) [#/Area] Leukocytes [#/area] in Urine sediment by Automated count High 0-4 [facility] Mucus [Presence] in Urine by AutomatedOrdered By: Emile Reynolds on 12-23-2024 Mucus Auto Ql (U) Mucus [Presence] in Urine by Automated [facility] Nitrite Test strip Ql (U)Ord ered By: Emile Reynolds on 12-23-2024 Nitrite Ql (U) Nitrite [Presence] in Urine by Test strip Negative [facility] No Panel InformationOrdered By: Emile Reynolds on 12-23-2024 Arterial Blood Base Excess -0.9 mmol/L -3.0-3.0 [facility] Arterial Blood Oxygen Content 6.4 mmol/L Low 6.6-9.7 [facility] Arterial Blood Oxygen Saturation 98.8 % 95.0-100.0 [facility] Arterial Blood Partial Pressure CO2 37.6 mm[Hg] 35.0-45.0 [facility] Arterial Blood Partial Pressure O2 170.6 mm[Hg] Critically high 80.0-100.0 [facility] Arterial Blood pH 7.41 7.35-7.45 [facility] Blood Gas Critical Value See comment [facility] Comment on above: Critical Value stack d on: 12/23/2024 at 21:14 Blood Gas PEEP 6 cmH2O [facility] Blood Gas Pressure Support 6.0 cmH2O [facility] Blood Gas Sample Site Right radial F [facility] FiO2 100 % [facility] Oxygen Delivery Device Bipap Fi [facility] 7.41 7.35-7.45 [facility] 37.6 mm[Hg] 35.0-45.0 [facility] 170.6 mm[Hg] Critically high 80.0-100.0 [facility] 23.5 mmol/L 23.0-29.0 [facility] -0.9 mmol/L -3.0-3.0 [facility] 98.8 % 95.0-100.0 [facility] 6.4 mmol/L Low 6.6-9.7 [facility] 24.6 mmol/L 23.0-27.0 [facility] 100 % [facility] 6 cmH2O [facility] 6.0 cmH2O [facility] Right radial [facility] Bipap [facility] See comment [facility] Protein Test strip (U) [Mass /Vol]Ordered By: Emile Reynolds on 12-23-2024 Protein (U) [Mass/Vol] Protein [Mass/volume] in Urine by Test strip High Negative [facility] Specific gravity Test strip (U) [Rel density]Ordered By: Emile Reynolds on 12-23-2024 Specific gravity (U) [Rel density] Specific gravity of Urine by Test strip 1.001-1.030 [facility] Type and Screenon 12-23-2024 ABO and Rh group Nom (Bld) Blood group O Rh(D) positive Normal [facility] Comment on above: Order Comment: expir ing BB band Transfuse now? Y Number of units to transfuse now? 1 Transfuse now? Y Number of units to transfuse now? 1 Result Comment: PERF ORMED BY: [place] [address] PATHOLOGIST PIPE CONNECTOR KRISTEL LU M.D. Urobilinogen Test strip (U) [Mass/Vol]Ordered By: Emile Reynolds on 12-23-2024 Urobilinogen (U) [Mass/Vol] Urobilinogen [Mass/volume] in Urine by Test strip Normal [facility] X-ray reportOrdered By: Juan Alberto Hamm on 12-23-2024 Study report [place] [address] XRay Report Signed Patient: Delano Ren MR#: [id number] : 1940 Acct:[id number] Age/Sex: 84 / M ADM Date: 5 Loc: Room: [address] [place] [address] Type: ADM IN Attending Dr: Emile Reynolds DO Copies to: DO Emile Giron, DO~ Ordering Provider: Rachid Adhikari DO Date of Service: 12/23/24 XR/XR chest 1V portable: hypoxia Plain film chest Single view HISTORY: Hypoxia COMPARISON: 12/23/2024 1926 hours FINDINGS: SUPPORT DEVICES: None POSTSURGICAL CHANGES: Stable HEART: Within normal limits PULMONARY MARIAN: Within normal limits MEDIASTINUM: Unremarkable LUNGS AND PLEURA: Improving right midlung consolidation with residual. No developing large pleural effusion. No pneumothorax. BONY STRUCTURES: Intact ADDITIONAL FINDINGS None XR/XR chest 1V portable IMPRESSION: Improving right midlung parenchymal density. Impression dictated by: Dominik Hamm M.D.12/23/2024 9:17 PM Dictation Location: [place] [address] Transcribed By: [facility] 12/23/242116 Dictated By: Dominik Hamm DO 12/23/242114 Signed By: 12/23/242116 [facility] X-ray reportOrdered By: Gianni Scott on 12-23-2024 Study report [facility] [place] [address] [place] [address] XRay Report Signed Patient: Delano Ren MR#: [id number] : 1940 Acct:[id number] Age/Sex: 84 / M ADM Date: 5 Loc: Room: [address] [place] [address] Type: ADM IN Attending Dr: Emile Reynolds DO Copies to: DO Walker Bhat MD~ Ordering Provider: Walker Soria MD Date of Service: 12/23/24 XR/XR hip RT min 2V(w/wo pelvis)*: Hip Fracture Post op ([id number]) XR/XR knee RT 2V: PAIN ([id number]) XR/XR ankle RT 2V: PAIN RIGHT HIP - 2 views: Right ankle 2 views, right knee 2 views CLINICAL HISTORY: Postop right hemiarthroplasty. COMPARISON: Hip series 12/21/2024 FINDINGS: Right hip Soft tissues demonstrate postoperative changes. No hardwarecomplication . Right knee: Moderate joint effusion. Moderately severe degenerative changes with weightbearing joint space narrowing. No acute bony process is seen. Thereis heterotopic ossification. Right ankle: Ankle mortise demonstrate degenerative change. No acute bony process. Plantar spurring. XR/XR hip RT min 2V(w/wo pelvis)* IMPRESSION: RIGHT HIP DEMONSTRATES POSTOPERATIVE CHANGES WITHOUT HARDWARE COMPLICATION. DEGENERATIVE CHANGES INVOLVING THE RIGHT KNEE AND ANKLE WITHOUT ACUTE BONY PROCESS.. Impression dictated by: Sotero Scott Jr., D.O.12/23/2024 2:26 PM Dictation Location: [facility]-22 Transcribed By: CALI 12/23/24 1426 Dictated By: Sotero Scott Jr, DO 12/23/24 1424 Signed By: 12/23/24 142 [facility] Study report [facility] [place] [address] [place] [address] XRay Report Signed Patient: Delano Ren MR#: [id number] : 1940 Acct:[id number] Age/Sex: 84 / M ADM Date: 5 Loc: Room: [address] [place] [address] Type: ADM IN Attending Dr: Emile Reynolds DO Copies to: MD Emile Gabriel, ~ Ordering Provider: Mazin Erickson MD Date of Service: 12/23/24 XR/XR chest 1V portable: Preop SINGLE VIEW CHEST CLINICAL HISTORY: Preop recent hip fracture COMPARISON: None FINDINGS: Pacemaker device is present. Heart is normal in size. Diffuse right lung airspace disease. Linear areas of atelectasis/scarring involving the left lung. No pneumothorax pleural effusion or free air. XR/XR chest 1V portable IMPRESSION: DIFFUSE RIGHT LUNG AIRSPACE DISEASE. FOLLOW-UP AFTER THERAPY IS RECOMMENDED TO ENSURE RESOLUTION. Impression dictated by: Sotero Scott Jr., D.O.12/23/2024 9:50 AM Dictation Location: [facility]-22 Transcribed By: CALI 12/23/24 0950 Dictated By: Sotero Scott Jr, DO 12/23/24 0950 Signed By: 12/23/24 0950 [facility] XR ankle RT 2Von 12-23-2024 XR ankle RT 2V [facility] [place] [address] [place] [address] XRay Report Signed Patient: Delano Ren MR#: [id number] 24 : 1940 Acct:[id number] Age/Sex: 84 / M ADM Date: 12/21/24 Loc: Room: [address] [place] [address] Type: ADM IN Attending Dr: Emile Reynolds DO Copies to: DO Walker Bhat MD Ordering Provider: Walker Soria MD Date of Service: 12/23/24 XR/XR hip RT min 2V(w/wo pelvis)*: Hip Fracture Post op ([id number]) XR/XR knee RT 2V: PAIN ([id number]) XR/XR ankle RT 2V: PAIN RIGHT HIP - 2 views: Right ankle 2 views, right knee 2 views CLINICAL HISTORY: Postop right hemiarthroplasty. COMPARISON: Hip series 12/21/2024 FINDINGS: Right hip Soft tissues demonstrate postoperative changes. No hardware complication. Right knee: Moderate joint effusion. Moderately severe degenerative changes with weightbearing joint space narrowing. No acute bony process is seen. There is heterotopic ossification. Right ankle: Ankle mortise demonstrate degenerative change. No acute bony process. Plantar spurring. XR/XR hip RT min 2V(w/wo pelvis)* IMPRESSION: RIGHT HIP DEMONSTRATES POSTOPERATIVE CHANGES WITHOUT HARDWARE COMPLICATION. DEGENERATIVE CHANGES INVOLVING THE RIGHT KNEE AND ANKLE WITHOUT ACUTE BONY PROCESS.. Impression dictated by: Sotero Scott Jr., DKeoOKeo12/23/2024 2:26 PM Dictation Location: [place] [address] Transcribed By: [facility] 12/23/24 1426 Dictated By: Sotero Scott Jr, DO 12/23/24 1424 Signed By: 12/23/24 1426 Normal [facility] XR chest 1V portableon 12-23 XR chest 1V portable [facility] [address] [address] XRay Report Signed Patient: Delano Ren MR#: [id number] 24 : 1940 Acct:[id number] Age/Sex: 84 / M ADM Date: 12/21/24 Loc: 4N Room: [id number] Type: ADM IN Attending Dr: Emile Reynolds DO Copies to: DO Emile Giron DO Ordering Provider: Rachid Adhikari DO Date of Service: 12/23/24 XR/XR chest 1V portable: hypoxia Plain film chest Single view HISTORY: Hypoxia COMPARISON: 12/23/2024 1926 hours FINDINGS: SUPPORT DEVICES: None POSTSURGICAL CHANGES: Stable HEART: Within normal limits PULMONARY MARIAN: Within normal limits MEDIASTINUM: Unremarkable LUNGS AND PLEURA: Improving right midlung consolidation with residual. No developing large pleural effusion. No pneumothorax. BONY STRUCTURES: Intact ADDITIONAL FINDINGS None XR/XR chest 1V portable IMPRESSION: Improving right midlung parenchymal density. Impression dictated by: Dominik Hamm M.D.12/23/2024 9:17 PM Dictation Location: [place] [address] Transcribed By: [facility] 12/23/242116 Dictated By: Dominik Hamm DO 12/23/242114 Signed By: 12/23/242116 Normal [facility] XR chest 1V portable [facility] [place] [address] [place] [address] XRay Report Signed Patient: Delano Ren MR#: [id number] [birth year] : 1940 Acct:[id number] Age/Sex: 84 / M ADM Date: 12/21/24 Loc: 4N Room: [id number] Type: ADM IN Attending Dr: Emile eRynolds DO Copies to: MD Emile Gabriel DO Ordering Provider: Mazin Erickson MD Date of Service: 12/23/24 XR/XR chest 1V portable: Preop SINGLE VIEW CHEST CLINICAL HISTORY: Preop recent hip fracture COMPARISON: None FINDINGS: Pacemaker device is present. Heart is normal in size. Diffuse right lung airspace disease. Linear areas of atelectasis/scarring involving the left lung. No pneumothorax pleural effusion or free air. XR/XR chest 1V portable IMPRESSION: DIFFUSE RIGHT LUNG AIRSPACE DISEASE. FOLLOW-UP AFTER THERAPY IS RECOMMENDED TO ENSURE RESOLUTION. Impression dictated by: Sotero Scott Jr., Yoon12/23/2024 9:50 AM Dictation Location: [place] [address] Transcribed By: [facility] 12/23/24949 Dictated By: Sotero Scott Jr, DO 12/23/24949 Signed By: 12/23/24949 Normal [facility] pH Test strip (U)Ordered By: Emile Reynolds on 12-23-2024 pH (U) pH of Urine by Test strip 5.0-9.0 [facility] Basic Metabolic Panelon Anion gap [Moles/Vol] 11.3 mmol/L Normal 6.0-15.0 [facility] Comment on above: Performed By: #### R ENAL, CBC #### [facility] [address] [place] [id number] [place] Calcium [Mass/Vol] 8.4 mg/dL Low 8.6-10.3 [facility] Comment on above: Performed By: #### R ENAL, CBC #### [facility] [address] [place] [id number] [place] Chloride [Moles/Vol] 104 mmol/L Normal 98-107 [facility] Comment on above: Performed By: #### R ENAL, CBC #### [facility] [address] [place] [id number] [place] CO2 [Moles/Vol] 30.4 mmol/L Normal 21.0-31.0 [facility] Comment on above: Performed By: #### R ENAL, CBC #### [facility] [address] [place] [id number] [place] Creatinine [Mass/Vol] 2.61 mg/dL High 0.70-1.30 [facility] Comment on above: Performed By: #### R ENAL, CBC #### [facility] [address] [place] [address] [place] Creatinine Clr Calc Pharmacy 25.99 Normal [facility] Comment on above: Result Comment: PERF ORMED BY: [place] [address] PATHOLOGIST PIPE CONNECTOR KRISTEL LU M.D. Performed By: #### R ENAL, CBC #### [address] Estimated GFR 23.765 mL/Min Normal [facility] Comment on above: Performed By: #### R ENAL, CBC #### [address] Glucose [Mass/Vol] 143 mg/dL High 70-100 [facility] Comment on above: Result Comment: [facility] Glucose Reference Range is dependent on time and content of last meal. Glucose of more than 200 mg/dL in a nonstressed, ambulatory subject supports the diagnosis of Diabetes Mellitus. ADA recommended reference range Performed By: #### R ENAL, CBC #### [address] Potassium [Moles/Vol] 3.7 mmol/L Normal 3.5-5.1 [facility] Comment on above: Performed By: #### R ENAL, CBC #### [address] Sodium [Moles/Vol] 142 mmol/L Normal 136-145 [facility] Comment on above: Performed By: #### R ENAL, CBC #### [address] Urea nitrogen [Mass/Vol] 58 mg/dL High 7-25 [facility] Comment on above: Performed By: #### R ENAL, CBC #### [address] Complete Blood Count Auto Di ffon 12-22-2024 Basophils (Bld) [#/Vol] 0.1 10*3/uL Normal 0.0-0.2 [facility] Comment on above: Result Comment: PERF ORMED BY: [place] [address] PATHOLOGIST PIPE CONNECTOR KRISTEL LU M.D. Performed By: #### R ENAL, CBC #### [facility] [address] [place] [address] [place] Basophils/100 WBC (Bld) 0.6 % Normal . [address] [facility] Comment on above: Performed By: #### R ENAL, CBC #### [facility] [address] [place] [address] [place] Eosinophils (Bld) [#/Vol] 0.2 10*3/uL Normal 0.0-0.45 [facility] Comment on above: Performed By: #### R ENAL, CBC #### [facility] [address] [place] [address] [place] Eosinophils/100 WBC (Bld) 1.5 % Normal . [facility] Comment on above: Performed By: #### R ENAL, CBC #### [facility] [address] [place] [address] [place] Erythrocyte distribution width (RBC) [Ratio] 14.2 % Normal 12.0-14.8 [facility] Comment on above: Performed By: #### R ENAL, CBC #### [facility] [address] [place] [address] [place] Hematocrit (Bld) [Volume fraction] 34.4 % Low 38.8-50.0 [facility] Comment on above: Performed By: #### R ENAL, CBC #### [facility] [address] [place] [address] [place] Hemoglobin (Bld) [Mass/Vol] 11.7 g/dL Low 13.0-17.0 [facility] Comment on above: Performed By: #### R ENAL, CBC #### [facility] [address] [place] [id number] [place] Lymphocytes (Bld) [#/Vol] 0.8 10*3/uL Low 1.00-4.8 [facility] Comment on above: Performed By: #### R ENAL, CBC #### [facility] [address] [place] [id number] [place] Lymphocytes/100 WBC (Bld) 6.8 % Normal . [facility] Comment on above: Performed By: #### R ENAL, CBC #### [address] MCH (RBC) [Entitic mass] 32.2 pg Normal 27.5-35.2 [facility] Comment on above: Performed By: #### R ENAL, CBC #### [address] MCV (RBC) [Entitic vol] 94.5 fL Normal 83.5-101 [facility] Comment on above: Performed By: #### R ENAL, CBC #### [address] Mean Corpuscular HGB Conc 34.1 g/dL Normal 32.5-35.6 [facility] Comment on above: Performed By: #### R ENAL, CBC #### [address] Monocytes (Bld) [#/Vol] 0.9 10*3/uL High 0.0-0.8 [facility] Comment on above: Performed By: #### R ENAL, CBC #### [address] Monocytes/100 WBC (Bld) 7.7 % Normal . [facility] Comment on above: Performed By: #### R ENAL, CBC #### [address] Neutrophils (Bld) [#/Vol] 9.8 10*3/uL High 1.8-7.7 [facility] Comment on above: Performed By: #### R ENAL, CBC #### [address] Neutrophils/100 WBC (Bld) 83.4 % Normal . [facility] Comment on above: Performed By: #### R ENAL, CBC #### [address] NRBC% 0.0 /100{WBC} Normal 0-0.5 [facility] Comment on above: Performed By: #### R ENAL, CBC #### [facility] [address] Platelet mean volume (Bld) [Entitic vol] 7.2 fL Normal 6.6-10.1 [facility] Comment on above: Performed By: #### R ENAL, CBC #### [facility] [address] Platelets (Bld) [#/Vol] 170 10*3/uL Normal 150-450 [facility] Comment on above: Performed By: #### R ENAL, CBC #### [address] RBC (Bld) [#/Vol] 3.64 10*6/uL Low 3.90-5.60 [facility] Comment on above: Performed By: #### R ENAL, CBC #### [address] WBC (Bld) [#/Vol] 11.7 10*3/uL High 4.1-10.5 [facility] Comment on above: Performed By: #### R ENAL, CBC #### [address] ECG 12 lead ECGon 12-22-2024 ECG 12 lead ECG [facility] [place] [address] [place] [address] Electrocardiograph Report Signed Patient: Delano Ren MR#: [id number] [birth year] : 1940 Acct:[id number] Age/Sex: 84 / M ADM Date: 12/21/24 Loc: Room: [address] [place] [address] Type: ADM IN Attending Dr: Jaye Jorgensen MD Ordering Provider: Sudha Sood MD Date of Service: 12/22/2407/10/4 ECG/ECG 12 lead ECG: PREOP Copies to: Test Reason : Blood Pressure : */* mmHG Vent. Rate : 65 BPM Atrial Rate : 65 BPM P-R Int : 142 ms QRS Dur : 190 ms QT Int : 542 ms P-R-T Axes : 65 118 36 degrees QTcB Int : 563 ms Atrial-sensed ventricular-paced rhythm Biventricular pacemaker detected Abnormal ECG Confirmed by Krysten Bowers ([id number]) on 12/22/2024 9:01:16 PM Referred By: Electronically Signed By: Krysten Bowers Transcribed By: MUS Signed By Krysten Bowers MD 5 1 Normal [facility] Activated partial thrombopla stin time (aPTT) in platelet poor plasma by coagulation aon 12-21-2024 aPTT Coag (PPP) [Time] Activated partial thromboplastin time (aPTT) in platelet poor plasma by coagulation a 22.3-36.2 [facility] Basophils Auto (Bld) [#/Vol] on 12-21-2024 Basophils (Bld) [#/Vol] Automated basoph il count 0.0-0.1 [facility] Basophils/100 WBC Auto (Bld) on 12-21-2024 Basophils/100 WBC (Bld) Automated basophil % 0. 2-2.0 [facility] Eosinophils/100 WBC Auto (Bl d)on 12-21-2024 Eosinophils/100 WBC (Bld) Automated eosi nophil % 0.9-7.0 [facility] Erythrocyte distribution wid th Auto (RBC) [Ratio]on 12-21-2024 Erythrocyte distribution width (RBC) [Ratio] Erythrocyte distribution width [Ratio] by Automated count 11.0-15.0 [facility] Estimated glomerular filtrat ion rate (GFR) non- Americanon 12-21-2024 GFR/1.73 sq M.predicted among non-blacks MDRD (S/P/Bld) [Vol rate/Area] Estimated glomerular filtration rate (GFR) non- Low >=60 mL/min/1.73 m 2 [facility] Globulin Calc (S) [Mass/Vol] on 12-21-2024 Globulin (S) [Mass/Vol] Serum globulin measurement by calculation (mass/volume) [facility] Hematocrit Auto (Bld) [Volum e fraction]on 12-21-2024 Hematocrit (Bld) [Volume fraction] Hematocrit [Volume Fraction] of Blood by Automated count Low 42.0-54.0 [facility] Hemoglobin [Mass/volume] in Bloodon 12-21-2024 Hemoglobin (Bld) [Mass/Vol] Hemoglobin [Mass/volume] in Blood Low 14.0-18.0 [facility] INR in Platelet poor plasma by Coagulation assayon 12-21-2024 INR Coag (PPP) [Relative time] INR in Platelet poor plasma by Coagulation assay [facility] Comment on above: DESIRED INR:2.0-3.0 CONDITIONS NOT LISTED BELOW2.5-3.5 FOR PROSTHETIC HEART VALVE REPLACEMENT2.5-3.5 RECURRENT THROMBOSIS Laboratory - Chemistry and C hemistry - challengeon 12-21-2024 Albumin [Mass/Vol] 3.7 g/dL 3.4-5.0 [facility] ALP [Catalytic activity/Vol] 110 U/L 46-116 [facility] ALT [Catalytic activity/Vol] 22 U/L 16-63 [facility] AST [Catalytic activity/Vol] 19 U/L 15-37 [facility] Bilirubin [Mass/Vol] 0.5 mg/dL 0.2-1.0 [facility] Calcium [Mass/Vol] 8.7 mg/dL 8.5-10.1 [facility] Chloride [Moles/Vol] 102 mmol/L 98-107 [facility] CO2 [Moles/Vol] 30.8 mmol/L 21.0-32.0 [facility] Creatinine [Mass/Vol] 3.27 mg/dL High 0.70-1.30 [facility] GFR/1.73 sq M.predicted MDRD (S/P/Bld) [Vol rate/Area] 22 mL/min/{1.73_m2} Low >=60 mL/min/1.73 m 2 [facility] Glucose [Mass/Vol] 101 mg/dL 74-106 [facility] Potassium [Moles/Vol] 3.7 mmol/L 3.5-5.1 [facility] Protein [Mass/Vol] 7.3 g/dL 6.4-8.2 [facility] Sodium [Moles/Vol] 145 mmol/L 136-145 [facility] Urea nitrogen [Mass/Vol] 68.0 mg/dL High 7.0-18.0 [facility] Urea nitrogen/Creatinine [Mass ratio] 20.8 mg/mg [facility] Laboratory - Hematology and Cell countson 12-21-2024 Immature granulocytes/100 WBC (Bld) 0.9 % High 0.0-0.5 [facility] Leukocytes [#/volume] correc bonnie for nucleated erythrocytes in Blood by Automated counon 12-21-2024 WBC corrected for nucl RBC Auto (Bld) [#/Vol] Leukocytes [#/volume] corrected for nucleated erythrocytes in Blood by Automated coun 4.0-11.0 [facility] Lymphocytes Auto (Bld) [#/Vo l]on 12-21-2024 Lymphocytes (Bld) [#/Vol] Lymphocytes [#/volume] in Blood by Automated count 1.2-3.8 [facility] Lymphocytes/100 WBC Auto (Bl d)on 12-21-2024 Lymphocytes/100 WBC (Bld) Lymphocytes/10 0 leukocytes in Blood by Automated count Low 20.5-60.0 [facility] MCH Auto (RBC) [Entitic mass ]on 12-21-2024 MCH (RBC) [Entitic mass] MCH [Entitic ma ss] by Automated count 25.9-34.0 [facility] MCHC Auto (RBC) [Mass/Vol]on 12-21-2024 MCHC (RBC) [Mass/Vol] MCHC [Mass/volume] by Automated count 29.9-35.2 [facility] MCV Auto (RBC) [Entitic vol] on 12-21-2024 MCV (RBC) [Entitic vol] MCV [Entitic vol ume] by Automated count High 80.0-94.0 [facility] Monocytes Auto (Bld) [#/Vol] on 12-21-2024 Monocytes (Bld) [#/Vol] Automated blood monocyte count 0.3-0.8 [facility] Monocytes/100 WBC Auto (Bld) on 12-21-2024 Monocytes/100 WBC (Bld) Automated monocyte % 1. 7-12.0 [facility] Neutrophils Auto (Bld) [#/Vo l]on 12-21-2024 Neutrophils (Bld) [#/Vol] Neutrophils [#/volume] in Blood by Automated count 1.4-6.5 [facility] Neutrophils/100 WBC Auto (Bl d)on 12-21-2024 Neutrophils/100 WBC (Bld) Automated neut rophil % 43.0-75.0 [facility] No Panel Informationon 12-21 Eosinophils # (Auto) 0.3 10 3/uL 0.0-0.7 [facility] Immature Granulocyte # (Auto) 0.07 10 3/uL High 0.00-0.03 [facility] Troponin I High Sensitivity 25.8 pg/mL 4.0-76.1 [facility] Comment on above: CUT-OFF POINTS HAVE BEEN ESTABLISHED BASED ON THE FOURTHUNIVERSAL DEFINITION OF MYOCARDIAL INFARCTION. THE UPPERREFERENCE LIMIT (URL) OF TROPONIN, DEFINED THE 99THPERCENTILE OF cTnI DISTRIBUTION IN A REFERENCE POPULATION,HAS BEEN CONFIRMED THE DECISION THRESHOLD FOR MIDIAGNOSIS.99TH PERCENTILE = 76.2 PG/MLNOTE: HIGH-SENSITIVITY TROPONIN ASSAY IS NOT INTENDED TO BEUSED IN ISOLATION BUT SHOULD BE INTERPRETED IN CONJUNCTIONWITH OTHER DIAGNOSTIC AND CLINICAL INFORMATION. 25.8 pg/mL 4.0-76.1 [facility] 3.7 g/dL 3.4-5.0 [facility] 0.3 10 3/uL 0.0-0.7 [facility] 110 U/L 46-116 [facility] 22 U/L 16-63 [facility] 19 U/L 15-37 [facility] 20.8 [facility] 0.07 10 3/uL High 0.00-0.03 [facility] 68.0 mg/dL High 7.0-18.0 [facility] 0.9 % High 0.0-0.5 [facility] 8.7 mg/dL 8.5-10.1 [facility] 102 mmol/L 98-107 [facility] 30.8 mmol/L 21.0-32.0 [facility] 3.27 mg/dL High 0.70-1.30 [facility] 22 Low >=60 mL/min/1.73 m 2 [facility] 101 mg/dL 74-106 [facility] 3.7 mmol/L 3.5-5.1 [facility] 145 mmol/L 136-145 [facility] 0.5 mg/dL 0.2-1.0 [facility] 7.3 g/dL 6.4-8.2 [facility] Platelet mean volume Auto (B ld) [Entitic vol]on 12-21-2024 Platelet mean volume (Bld) [Entitic vol] Platelet mean volume [Entitic volume] in Blood by Automated count Low 9.5-13.5 [facility] Platelets Auto (Bld) [#/Vol] on 12-21-2024 Platelets (Bld) [#/Vol] Platelets [#/vol ume] in Blood by Automated count 150-450 [facility] Prothrombin time (PT)on PT Coag (PPP) [Time] Prothrombin time (PT) 9.0-11.6 [facility] RBC Auto (Bld) [#/Vol]on RBC (Bld) [#/Vol] Erythrocytes [#/volume] in Blood by Automated count Low 4.70-6.10 [facility] Serum or plasma albumin/glob ulin mass ratioon 12-21-2024 Albumin/Globulin [Mass ratio] Serum or plasma albumin/globulin mass ratio [facility] Serum or plasma anion gap de terminationon 12-21-2024 Anion gap [Moles/Vol] Serum or plasma anion gap determination [facility] Laboratory - Chemistry and C hemistry - challengeon 12-19-2024 Free T4 [Mass/Vol] 0.82 ng/dL 0.76-1.46 [facility] TSH Qn 23.918 m[IU]/L High 0.358-3.740 [facility] No Panel Informationon 12-19 Total Triiodothyronine 65 ng/dL Abnormal 71-180 [facility] Comment on above: Performed at: [address] [id number] Director: Nathan Munoz PhD, Phone: [phone] 65 ng/dL Abnormal 71-180 [facility] 0.82 ng/dL 0.76-1.46 [facility] 23.918 u[iU]/mL High 0.358-3.740 [facility] Follow-Upon 11-13-2024 Follow-Up [id number] Delano Ren Jefry 1940 M Date Provider Department Center 11/13/2024 ENRRIQUE TAVAREZ CARD [facility] Family History Problem Relation Age of Onset Diabetes Mother Heart disease Father Glaucoma Brother Diabetes Maternal Grandmother Clotting disorder Other Family Status - Relation Status Age at Mother Father Brother Maternal Grandmother Other Level of Service:34346 [place] OFFICE/OUTPATIENT ESTABLISHED LOW MDM 20 MIN Reason for Visit and Comments: Atrial Fibrillation [80] Atrial Flutter [101] Normal [facility] Laboratory - Chemistry and C hemistry - challengeon 11-07-2024 Free T4 [Mass/Vol] 0.89 ng/dL 0.76-1.46 [facility] TSH Qn 28.632 m[IU]/L High 0.358-3.740 [facility] No Panel Informationon 11-07 Total Triiodothyronine 54 ng/dL Abnormal 71-180 [facility] Comment on above: Performed at: [address] [id number] Director: Nathan Munoz PhD, Phone: [phone] 54 ng/dL Abnormal 71-180 [facility] 28.632 u[iU]/mL High 0.358-3.740 [facility] 0.89 ng/dL 0.76-1.46 [facility] HPon 10-17-2024 [facility] Electrophysiology Consult Note Reason for visit: Afib and dilated CMP. 10/17/24 Pt here for DCCV. Device check reveals atrial flutter with V pacing, 09/10/24 Patient underwent [employer] upgrade procedure on 06/12/2023. Subsequent echocardiogram in #2022 showed EF of 25 to 30%. EKG [...] III symptoms. EKG: V pacing. Prior HPI: Delano Ren is a 84 y.o. year old [...] infrahisian disease. He was brought back to [facility] on 02/12/2020 due to what was discussed [...] Chronic k (more content not included)... Normal [facility] NURSNOTEon 10-17-2024 NURSNOTE RN educated pt and on discharge instructions. RN encouraged pt to voice any questions or concerns. Pt verbalizes no questions or concerns at this time. Pt was wheeled off unit with all belongings. Normal [facility] Estimated glomerular filtrat ion rate (GFR) non- Americanon 10-11-2024 GFR/1.73 sq M.predicted among non-blacks MDRD (S/P/Bld) [Vol rate/Area] Estimated glomerular filtration rate (GFR) non- Low >=60 mL/min/1.73 m 2 [facility] Laboratory - Chemistry and C hemistry - challengeon 10-11-2024 Calcium [Mass/Vol] 8.6 mg/dL 8.5-10.1 [facility] Chloride [Moles/Vol] 103 mmol/L 98-107 [facility] CO2 [Moles/Vol] 32.0 mmol/L 21.0-32.0 [facility] Creatinine [Mass/Vol] 3.07 mg/dL High 0.70-1.30 [facility] GFR/1.73 sq M.predicted MDRD (S/P/Bld) [Vol rate/Area] 24 mL/min/{1.73_m2} Low >=60 mL/min/1.73 m 2 [facility] Glucose [Mass/Vol] 124 mg/dL High 74-106 [facility] Magnesium [Mass/Vol] 2.4 mg/dL 1.8-2.4 [facility] Potassium [Moles/Vol] 3.7 mmol/L 3.5-5.1 [facility] Sodium [Moles/Vol] 143 mmol/L 136-145 [facility] Urea nitrogen [Mass/Vol] 69.0 mg/dL High 7.0-18.0 [facility] Urea nitrogen/Creatinine [Mass ratio] 22.5 mg/mg [facility] Serum or plasma anion gap de terminationon 10-11-2024 Anion gap [Moles/Vol] Serum or plasma anion gap determination [facility] Orders Onlyon 10-10-2024 Orders Only [id number] Delano Ren 1940 M Date Provider Department Center 10/10/2024 [facility] Family History Problem Relation Age of Onset Diabetes Mother Heart disease Father Glaucoma Brother Diabetes Maternal Grandmother Clotting disorder Other Family Status - Relation Status Age at Mother Father Brother Maternal Grandmother Other Normal [facility] 36on 09-20-2024 36 Regarding echo result from 09/19/2024: Per Dr. Degroot - EF has improved. Will repeat echo in 6 months. Order entered and faxed to [facility]. Patient and his informed. Normal [facility] Office Visiton 09-10-2024 Follow-up visit [id number] Delano Ren 1940 M Date Provider Department Center 09/10/2024 Shalini-TRANG DEGROOT CARD [facility] Family History Problem Relation Age of Onset Diabetes Mother Heart disease Father Glaucoma Brother Diabetes Maternal Grandmother Clotting disorder Other Family Status - Relation Status Age at Mother Father Brother Maternal Grandmother Other Level of Service:[address] [place] OFFICE/OUTPATIENT ESTABLISHED LOW MDM 20 MIN Normal [facility] Glucose Poct Glucometerson 1 10-22-2023 Commemt1 Glu2: Cleaned Meter Normal [facility] Comment on above: Result Comment: PERF ORMED BY: [address] [place] [address] PATHOLOGIST PIPE CONNECTOR TRU UMANZOR M.D. Performed By: #### R ADEEL, CBC #### [facility] [address] [place] [address] Glucose [Mass/Vol] 112 mg/dL Normal [facility] Comment on above: Result Comment: [facility] Glucose Reference Range is dependent on time and content of last meal. Glucose of more than 200 mg/dL in a nonstressed, ambulatory subject supports the diagnosis of Diabetes Mellitus. Performed By: #### R ADEEL, CBC #### [facility] [address] [place] [address] Vijay 08-22-2024 L Specimen: [id number] Received: 08/22/24 Status: ДМИТРИЙ Barry Num: [id number] Spec Type: Surgical Subm Dr: Ramesh Rascon MD Tissues: A Colon Biopsy (TRANSVERSEPOLYPS) B Colon Biopsy (DESCENDING POLYPS) C Colon Biopsy (SIGMOID POLYPS) Procedures: /, Gross/Micro L4/3 Age/ Patient Sex Location Account Attending Physician Delano Ren 84/[facility] [id number] Ramesh Rascon MD SPEC NUM: [id number] RECD: 08/22/24 STATUS: ДМИТРИЙ LINDQUISTAnnetta NUM: [id number] [place]: 08/22/24- [facility] [place] DR: Ramesh Rascon MD ENTERED: 08/22/[address] [facility] [address]: SPEC TYPE: Surgical DEPT: S ENTERED BY: [id number] RECV BY: [id number] ORDERED: HE/6, Gross/Micro L4/3 ORDERED: , Gross/Micro L4/3 Pathological Diagnosis A. Transverse colon [...] submitted in a single cassette. (1, ns, [id number]) JG B received in formalin labeled descending polyps are 5 staley-parr, focally erythematous, friable, 0.2 to 0.5 cm polypoid fragments. The specimen is entirely submitted in a single cassette. (1, ns, [id number] B) JG C. Received in formalin labeled sigmoid polyps are 4 staley-parr, focally erythematous, Specimen: [id number] Received: 08/22/24 Status: ДМИТРИЙ Barry Num: [id number] Spec Type: Surgical Subm Dr: Ramesh Rascon MD Tissues: A Colon Biopsy (TRANSVERSEPOLYPS) B Colon Biopsy (DESCENDING POLYPS) C Colon Biopsy (SIGMOID POLYPS) Procedures: HE/Mehdi, Gross/Micro L4/3 Patient: Delano Ren [id number] (Continued) Specimen: [id number] Received: 08/22/24 (Continued) Gross Description (Continued) Signed (signature on file) Logan Taylor MD 08/23/24 0926 Specimen: [id number] Received: 08/22/24 Status: ДМИТРИЙ Barry Num: [id number] Spec Type: Surgical Subm Dr: Ramesh Rascon MD Tissues: A Colon Biopsy (TRANSVERSEPOLYPS) B Colon Biopsy (DESCENDING POLYPS) C Colon Biopsy (SIGMOID POLYPS) Procedures: JEFF/Julieta Harding/Micro L4/3 Patient: Delano eRn [id number] (Continued) Specimen: [id number] Received: 08/22/24 (Continued) Gross Description (Continued) friable, 0.2 to 0.4 cm polypoid fragments. The specimen is entirely submitted in a single cassette. (1, ns, [id number] C) CPT Codes 88 305 x 3 Specimen: [id number] Received: 08/22/24 Status: ДМИТРИЙ Barry Num: [id number] Spec Type: Surgical Subm Dr: Ramesh Rascon MD Tissues: A Colon Biopsy (TRANSVERSEPOLYPS) B Colon Biopsy (DESCENDING POLYPS) C Colon Biopsy (SIGMOID POLYPS) Procedures: HE/Mehdi, Gross/Micro L4/3 Patient: Delano Ren [id number] (Continued) Signed (signature on file) Logan Taylor MD 08/23/24 0926 Normal [facility] 36on 08-12-2024 36 Okay to hold Eliquis 2 days prior to colonoscopy. Thanks Normal [facility] Office Visiton 07-24-2024 Follow-up visit [id number] Delano Ren 1940 M Date Provider Department Center 07/24/2024 ENRRIQUE TAVAREZ Family History Problem Relation Age of Onset Diabetes Mother Heart disease Father Glaucoma Brother Diabetes Maternal Grandmother Clotting disorder Other Family Status - Relation Status Age at Mother Father Brother Maternal Grandmother Other Level of Service:01177 [place] OFFICE/OUTPATIENT ESTABLISHED MOD MDM 30 MIN Reason for Visit and Comments: Atrial Fibrillation [80] Coronary Artery Disease [187] Normal [facility] Alanine aminotransferase [En zymatic activity/volume] in Serum or PlasmaOrdered By: Chivo Keller on 02-22-2024 ALT [Catalytic activity/Vol] 15 U/L 7-52 [facility] Albumin [Mass/volume] in Ser um or PlasmaOrdered By: Chivo Keller on 02-22-2024 Albumin [Mass/Vol] 3.9 g/dL 2.9-4.4 [facility] Albumin [Mass/volume] in Ser um or Plasma by Bromocresol green (BCG) dye binding methoOrdered By: Chivo Keller on 02-22-2024 Albumin BCG dye [Mass/Vol] 4.4 g/dL 3.5-5.7 [facility] Alkaline phosphatase [Enzyma tic activity/volume] in Serum or PlasmaOrdered By: Chivo Keller on 02-22-2024 ALP [Catalytic activity/Vol] 100 U/L 34-104 [facility] Aspartate aminotransferase [ Enzymatic activity/volume] in Serum or PlasmaOrdered By: Chivo Keller on 02-22-2024 AST [Catalytic activity/Vol] 18 U/L 13-39 [facility] Basophils Auto (Bld) [#/Vol] Ordered By: Chivo Keller on 02-22-2024 Basophils (Bld) [#/Vol] 0.0 10*3/uL 0.0-0.2 [facility] Basophils (Bld) [#/Vol] Automated basoph il count 0.0-0.2 [facility] Basophils/100 WBC Auto (Bld) Ordered By: Chivo Keller on 02-22-2024 Basophils/100 WBC (Bld) 0.5 % . [facility] Basophils/100 WBC (Bld) Automated basophil % . [facility] Bilirubin.total [Mass/volume ] in Serum or PlasmaOrdered By: Chivo Keller on 02-22-2024 Bilirubin [Mass/Vol] 0.7 mg/dL 0.3-1.0 [facility] Calcium [Mass/volume] in Ser um or PlasmaOrdered By: Chivo Keller on 02-22-2024 Calcium [Mass/Vol] 9.4 mg/dL 8.6-10.3 [facility] Carbon dioxide, total [Moles /volume] in Serum or PlasmaOrdered By: Chivo Keller on 02-22-2024 CO2 [Moles/Vol] 33.2 mmol/L High 21.0-31.0 [facility] Chloride [Moles/volume] in S alayna or PlasmaOrdered By: Chivo Keller on 02-22-2024 Chloride [Moles/Vol] 100 mmol/L 98-107 [facility] Creatinine [Mass/volume] in Serum or PlasmaOrdered By: Chivo Keller on 02-22-2024 Creatinine [Mass/Vol] 2.38 mg/dL High 0.70-1.30 [facility] Eosinophils Auto (Bld) [#/Vo l]Ordered By: Chivo Keller on 02-22-2024 Eosinophils (Bld) [#/Vol] 0.3 10*3/uL 0.0-0.45 [facility] Eosinophils (Bld) [#/Vol] Automated eosi nophil count 0.0-0.45 [facility] Eosinophils/100 WBC Auto (Bl d)Ordered By: Chivo Keller on 02-22-2024 Eosinophils/100 WBC (Bld) 3.8 % . [facility] Eosinophils/100 WBC (Bld) Automated eosi nophil % . [facility] Erythrocyte distribution wid th Auto (RBC) [Ratio]Ordered By: Chivo Keller on 02-22-2024 Erythrocyte distribution width (RBC) [Ratio] 14.6 % 12.0-14.8 [facility] Erythrocyte distribution width (RBC) [Ratio] Erythrocyte distribution width [Ratio] by Automated count 12.0-14.8 [facility] Ferritin [Mass/volume] in Se rum or PlasmaOrdered By: Chivo Keller on 02-22-2024 Ferritin [Mass/Vol] 236.8 ng/mL 23.9-336.2 [facility] Folate [Mass/volume] in Seru m or PlasmaOrdered By: Chivo Keller on 02-22-2024 Folate [Mass/Vol] 36.0 ng/mL >5.9 [facility] Comment on above: Folate reference ran ge: >5.9 ng/mlThe WHO technical consultation on folate and vitamin [id number] has determined that folate concentrations lessthan 4 ng/ml are considered deficient. Globulin Calc (S) [Mass/Vol] Ordered By: Chivo Keller on 02-22-2024 Globulin (S) [Mass/Vol] 3.0 g/dL [facility] Glucose [Mass/volume] in Ser um or PlasmaOrdered By: Chivo Keller on 02-22-2024 Glucose [Mass/Vol] 129 mg/dL High 70-100 [facility] Comment on above: ADA recommended refe rence rangeRandom Glucose Reference Range is dependent on time and content of last meal. Glucose of more than 200 mg/dL in a nonstressed, ambulatory subject supports the diagnosis of Diabetes Mellitus. Hematocrit Auto (Bld) [Volum e fraction]Ordered By: Chivo Keller on 02-22-2024 Hematocrit (Bld) [Volume fraction] 38.1 % Low 38.8-50.0 [facility] Hematocrit (Bld) [Volume fraction] Hematocrit [Volume Fraction] of Blood by Automated count Low 38.8-50.0 [facility] Hemoglobin [Mass/volume] in BloodOrdered By: Chivo Keller on 02-22-2024 Hemoglobin (Bld) [Mass/Vol] 12.9 g/dL Low 13.0-17.0 [facility] Hemoglobin (Bld) [Mass/Vol] Hemoglobin [Mass/volume] in Blood Low 13.0-17.0 [facility] IgA [Mass/volume] in Serum o r PlasmaOrdered By: Chivo Keller on 02-22-2024 IgA [Mass/Vol] 179 mg/dL 61-437 [facility] IgG [Mass/volume] in Serum o r PlasmaOrdered By: Chivo Keller on 02-22-2024 IgG [Mass/Vol] 987 mg/dL 603-1613 [facility] IgM [Mass/volume] in Serum o r PlasmaOrdered By: Chivo Keller on 02-22-2024 IgM [Mass/Vol] 143 mg/dL 15-143 [facility] Comment on above: Performed at: [facility] [place] [address] [id number] Director: Nathan Munoz PhD, Phone: [phone] Immunoglobulin light chains. kappa.free [Mass/volume] in SerumOrdered By: Chivo Keller on 02-22-2024 Immunoglobulin light chains.kappa.free (S) [Mass/Vol] 56.1 mg/L High 3.3-19.4 [facility] Immunoglobulin light chains. kappa.free/Immunoglobulin light chains.lambda.free [MassOrdered By: Chivo Keller on 02-22-2024 Immunoglobulin light chains.kappa.free/Immunog lobulin light chains.lambda.free (S) [Mass ratio] 1.51 0.26-1.65 [facility] Comment on above: Performed at: [facility] [place] [address] [id number] Director: Nathan Munoz PhD, Phone: [phone] Immunoglobulin light chains. lambda.free [Mass/volume] in Serum or PlasmaOrdered By: Chivo Keller on 02-22-2024 Immunoglobulin light chains.lambda.free [Mass/Vol] 37.2 mg/L High 5.7-26.3 [facility] Iron [Mass/volume] in Serum or PlasmaOrdered By: Chivo Keller on 02-22-2024 Iron [Mass/Vol] 85 ug/dL 50-212 [facility] Iron binding capacity [Mass/ volume] in Serum or PlasmaOrdered By: Chivo Keller on 02-22-2024 Iron binding capacity [Mass/Vol] 281 ug/dL 255-450 [facility] Iron saturation [Mass Fracti on] in Serum or PlasmaOrdered By: Chivo Keller on 02-22-2024 Iron saturation [Mass fraction] 30.2 % 20-50 [facility] Leukocytes [#/volume] correc bonnie for nucleated erythrocytes in Blood by Automated counOrdered By: Chivo Keller on 02-22-2024 WBC corrected for nucl RBC Auto (Bld) [#/Vol] 7.5 10*3/uL 4.1-10.5 [facility] WBC corrected for nucl RBC Auto (Bld) [#/Vol] Leukocytes [#/volume] corrected for nucleated erythrocytes in Blood by Automated coun 4.1-10.5 [facility] Lymphocytes Auto (Bld) [#/Vo l]Ordered By: Chivo Keller on 02-22-2024 Lymphocytes (Bld) [#/Vol] 1.4 10*3/uL 1.00-4.8 [facility] Lymphocytes (Bld) [#/Vol] Lymphocytes [#/volume] in Blood by Automated count 1.00-4.8 [facility] Lymphocytes/100 WBC Auto (Bl d)Ordered By: Chivo Keller on 02-22-2024 Lymphocytes/100 WBC (Bld) 19.1 % . [facility] Lymphocytes/100 WBC (Bld) Lymphocytes/10 0 leukocytes in Blood by Automated count . [facility] MCH Auto (RBC) [Entitic mass ]Ordered By: Chivo Keller on 02-22-2024 MCH (RBC) [Entitic mass] 31.6 pg 27.5-35.2 [facility] MCH (RBC) [Entitic mass] MCH [Entitic ma ss] by Automated count 27.5-35.2 [facility] MCHC Auto (RBC) [Mass/Vol]Or dered By: Chivo Keller on 02-22-2024 MCHC (RBC) [Mass/Vol] 33.9 g/dL 32.5-35.6 [facility] MCHC (RBC) [Mass/Vol] MCHC [Mass/volume] by Automated count 32.5-35.6 [facility] MCV Auto (RBC) [Entitic vol] Ordered By: Chivo Keller on 02-22-2024 MCV (RBC) [Entitic vol] 93.2 fL 83.5-[address] [facility] MCV (RBC) [Entitic vol] MCV [Entitic vol ume] by Automated count 83.5-101 [facility] Monocytes Auto (Bld) [#/Vol] Ordered By: Chivo Keller on 02-22-2024 Monocytes (Bld) [#/Vol] 0.8 10*3/uL 0.0-0.8 [facility] Monocytes (Bld) [#/Vol] Automated blood monocyte count 0.0-0.8 [facility] Monocytes/100 WBC Auto (Bld) Ordered By: Chivo Keller on 02-22-2024 Monocytes/100 WBC (Bld) 10.0 % . [facility] Monocytes/100 WBC (Bld) Automated monocyte % . [facility] Neutrophils Auto (Bld) [#/Vo l]Ordered By: Chivo Keller on 02-22-2024 Neutrophils (Bld) [#/Vol] 5.0 10*3/uL 1.8-7.7 [facility] Neutrophils (Bld) [#/Vol] Neutrophils [#/volume] in Blood by Automated count 1.8-7.7 [facility] Neutrophils/100 WBC Auto (Bl d)Ordered By: Chivo Keller on 02-22-2024 Neutrophils/100 WBC (Bld) 66.6 % . [facility] Neutrophils/100 WBC (Bld) Automated neut rophil % . [facility] No Panel InformationOrdered By: Chivo Keller on 05-09-2024 Protein Electrophoresis M-Tobi Not observed g/dL Not Observed [facility] Protein Electrophoresis Note See comment . [facility] Comment on above: Protein electrophore sis scan will follow via computer,mail, or roving court reporter delivery.Performed at: [facility] [id number] Director: Nathan Munoz PhD, Phone: [phone] Serum Immunofixation See comment . [facility] Comment on above: No monoclonality det ected. Not observed g/dL Not Observed [facility] Estimated GFR (CKD-EPI) 26.711 mL/Min [facility] Creatinine Clearance (Chem 29.06 [facility] Nucleated erythrocytes [Pres ence] in Blood by Automated countOrdered By: Chivo Keller on 02-22-2024 Nucleated RBC Auto Ql (Bld) 0.0 /100{WBC} 0-0.5 [facility] Nucleated RBC Auto Ql (Bld) Nucleated erythrocytes [Presence] in Blood by Automated count 0-0.5 [facility] Platelet mean volume Auto (B ld) [Entitic vol]Ordered By: Chivo Keller on 02-22-2024 Platelet mean volume (Bld) [Entitic vol] 7.6 fL 6.6-10.1 [facility] Platelet mean volume (Bld) [Entitic vol] Platelet mean volume [Entitic volume] in Blood by Automated count 6.6-10.1 [facility] Platelets Auto (Bld) [#/Vol] Ordered By: Chivo Keller on 02-22-2024 Platelets (Bld) [#/Vol] 196 10*3/uL 150-450 [facility] Platelets (Bld) [#/Vol] Platelets [#/vol ume] in Blood by Automated count 150-450 [facility] Potassium [Moles/volume] in Serum or PlasmaOrdered By: Chivo Keller on 02-22-2024 Potassium [Moles/Vol] 3.8 mmol/L 3.5-5.1 [facility] Protein [Mass/volume] in Ser um or PlasmaOrdered By: Chivo Keller on 02-22-2024 Protein [Mass/Vol] 6.8 g/dL 6.0-8.5 [facility] Protein [Mass/Vol] 7.4 g/dL 6.4-8.9 [facility] RBC Auto (Bld) [#/Vol]Ordere d By: Chivo Keller on 02-22-2024 RBC (Bld) [#/Vol] 4.09 10*6/uL 3.90-5.60 [facility] RBC (Bld) [#/Vol] Erythrocytes [#/volume] in Blood by Automated count 3.90-5.60 [facility] Serum free kappa light chain measurementOrdered By: Chivo Keller on 02-22-2024 Immunoglobulin light chains.kappa.free (S) [Mass/Vol] Immunoglobulin light chains.kappa.free [Mass/volume] in Serum High 3.3-19.4 [facility] Serum globulin measurement ( mass/volume)Ordered By: Chivo Keller on 02-22-2024 Globulin (S) [Mass/Vol] 2.9 g/dL 2.2-3.9 [facility] Globulin (S) [Mass/Vol] Serum globulin measurement (mass/volume) 2.2-3.9 [facility] Serum immunofixation electro phoresisOrdered By: Chivo Keller on 02-22-2024 Serum immunofixation electrophoresis See comment . [facility] Serum immunoglobulin free ka ppa light chains/immunoglobulin free lambda light chainsOrdered By: Chivo Keller on 02-22-2024 Immunoglobulin light chains.kappa.free/Immunog lobulin light chains.lambda.free (S) [Mass ratio] Immunoglobulin light chains.kappa.free/Im munoglobulin light chains.lambda.free [Mass 0.26-1.65 [facility] Serum or plasma IgA measurem ent (mass/volume)Ordered By: Chivo Keller on 02-22-2024 IgA [Mass/Vol] IgA [Mass/volume] in Serum or Plasma 61-437 [facility] Serum or plasma IgG measurem ent (mass/volume)Ordered By: Chivo Keller on 02-22-2024 IgG [Mass/Vol] IgG [Mass/volume] in Serum or Plasma 603-1613 [facility] Serum or plasma IgM measurem ent (mass/volume)Ordered By: Chivo Kelelr on 02-22-2024 IgM [Mass/Vol] IgM [Mass/volume] in Serum or Plasma 15-143 [facility] Serum or plasma albumin darshan urement (mass/volume)Ordered By: Chivo Keller on 02-22-2024 Albumin [Mass/Vol] Albumin [Mass/volume] in Serum or Plasma 2.9-4.4 [facility] Serum or plasma albumin/glob ulin mass ratioOrdered By: Chivo Keller on 02-22-2024 Albumin/Globulin [Mass ratio] 1.3 {ratio} 0.7-1.7 [facility] Albumin/Globulin [Mass ratio] Serum or plasma albumin/globulin mass ratio 0.7-1.7 [facility] Albumin/Globulin [Mass ratio] 1.5 {ratio} [facility] Serum or plasma alpha 1 glob ulin measurement by electrophoresis (mass/volume)Ordered By: Chivo Keller on 02-22-2024 Alpha 1 globulin Elph [Mass/Vol] 0.2 g/dL 0.0-0.4 [facility] Alpha 1 globulin Elph [Mass/Vol] Serum or plasma alpha 1 globulin measurement by electrophoresis (mass/volume) 0.0-0.4 [facility] Serum or plasma alpha 2 glob ulin measurement by electrophoresis (mass/volume)Ordered By: Chivo Keller on 02-22-2024 Alpha 2 globulin Elph [Mass/Vol] 0.8 g/dL 0.4-1.0 [facility] Alpha 2 globulin Elph [Mass/Vol] Serum or plasma alpha 2 globulin measurement by electrophoresis (mass/volume) 0.4-1.0 [facility] Serum or plasma anion gap de terminationOrdered By: Chivo Keller on 02-22-2024 Anion gap [Moles/Vol] 10.6 mmol/L 6.0-15.0 [facility] Serum or plasma beta globuli n measurement by electrophoresis (mass/volume)Ordered By: Chivo Keller on 02-22-2024 Beta globulin Elph [Mass/Vol] 0.9 g/dL 0.7-1.3 [facility] Beta globulin Elph [Mass/Vol] Serum or plasma beta globulin measurement by electrophoresis (mass/volume) 0.7-1.3 [facility] Serum or plasma gamma globul in measurement by electrophoresis (mass/volume)Ordered By: Chivo Keller on 02-22-2024 Gamma globulin Elph [Mass/Vol] 1.0 g/dL 0.4-1.8 [facility] Gamma globulin Elph [Mass/Vol] Serum or plasma gamma globulin measurement by electrophoresis (mass/volume) 0.4-1.8 [facility] Serum or plasma immunoglobul in free lambda light chains measurement (mass/volume)Ordered By: Chivo Keller on 02-22-2024 Immunoglobulin light chains.lambda.free [Mass/Vol] Immunoglobulin light chains.lambda.free [Mass/volume] in Serum or Plasma High 5.7-26.3 [facility] Serum total protein measurem entOrdered By: Chivo Keller on 02-22-2024 Protein [Mass/Vol] Protein [Mass/volume] in Serum or Plasma 6.0-8.5 [facility] Sodium [Moles/volume] in Ser um or PlasmaOrdered By: Chivo Keller on 02-22-2024 Sodium [Moles/Vol] 140 mmol/L 136-145 [facility] Transferrin [Mass/volume] in Serum or PlasmaOrdered By: Chivo Keller on 02-22-2024 Transferrin [Mass/Vol] 201 mg/dL Low 203-362 [facility] Urea nitrogen [Mass/volume] in Serum or PlasmaOrdered By: Chivo Keller on 02-22-2024 Urea nitrogen [Mass/Vol] 59 mg/dL High 7-25 [facility] Vitamin B12 ser/plasOrdered By: Chivo Keller on 02-22-2024 Cobalamin (Vitamin B12) [Mass/Vol] 649 pg/mL 180-914 [facility] WBC Auto (Bld) [#/Vol]Ordere d By: Chivo Keller on 02-22-2024 WBC (Bld) [#/Vol] 7.5 10*3/uL 4.1-10.5 [facility] WBC (Bld) [#/Vol] Leukocytes [#/volume] in Blood by Automated count 4.1-10.5 [facility] Automated urine specific gra vity by refractometryon 02-01-2024 Specific gravity Refractometry automated (U) [Rel density] 1.010 1.005-1.025 [facility] Bilirubin Auto test strip (U ) [Mass/Vol]on 02-01-2024 Bilirubin (U) [Mass/Vol] Negative NEGATIVE [facility] Color Auto (U)on 02-01-2024 Color (U) LT. YELLOW YELLOW [facility] Erythrocyte distribution wid th Auto (RBC) [Ratio]on 02-01-2024 Erythrocyte distribution width (RBC) [Ratio] 13.5 % 11.0-15.0 [facility] Estimated glomerular filtrat ion rate (GFR) non- Americanon 02-01-2024 GFR/1.73 sq M.predicted among non-blacks MDRD (S/P/Bld) [Vol rate/Area] 23 mL/min/{1.73_m2} Low >=60 [facility] Glucose [Mass/volume] in Uri ne by Test stripon 02-01-2024 Glucose Test strip (U) [Mass/Vol] Negative NEGATIVE [facility] Hematocrit Auto (Bld) [Volum e fraction]on 02-01-2024 Hematocrit (Bld) [Volume fraction] 37.0 % Low 42.0-54.0 [facility] Hemoglobin [Mass/volume] in Bloodon 02-01-2024 Hemoglobin (Bld) [Mass/Vol] 11.9 g/dL Low 14.0-18.0 [facility] Ketones Auto test strip (U) [Mass/Vol]on 02-01-2024 Ketones (U) [Mass/Vol] Negative NEGATIVE [facility] Laboratory - Chemistry and C hemistry - challengeon 02-01-2024 Calcium [Mass/Vol] 9.1 mg/dL 8.5-10.1 [facility] Chloride [Moles/Vol] 101 mmol/L 98-107 [facility] CO2 [Moles/Vol] 31.5 mmol/L 21.0-32.0 [facility] Creatinine [Mass/Vol] 2.66 mg/dL High 0.70-1.30 [facility] Free T4 [Mass/Vol] 1.03 ng/dL 0.76-1.46 [facility] GFR/1.73 sq M.predicted MDRD (S/P/Bld) [Vol rate/Area] 28 mL/min/{1.73_m2} Low >=60 [facility] Glucose [Mass/Vol] 128 mg/dL High 74-106 [facility] Magnesium [Mass/Vol] 2.4 mg/dL 1.8-2.4 [facility] Potassium [Moles/Vol] 3.8 mmol/L 3.5-5.1 [facility] Sodium [Moles/Vol] 141 mmol/L 136-145 [facility] TSH Qn 8.924 m[IU]/L High 0.358-3.740 [facility] Urea nitrogen [Mass/Vol] 55.0 mg/dL High 7.0-18.0 [facility] Urea nitrogen/Creatinine [Mass ratio] 20.7 mg/mg [facility] Laboratory - Urinalysison Protein (U) [Mass/Vol] 25.1 mg/dL High <=11.9 [facility] Leukocytes [#/volume] correc bonnie for nucleated erythrocytes in Blood by Automated counon 02-01-2024 WBC corrected for nucl RBC Auto (Bld) [#/Vol] 8.0 10 3/uL 4.0-11.0 [facility] MCH Auto (RBC) [Entitic mass ]on 02-01-2024 MCH (RBC) [Entitic mass] 30.9 pg 25.9-34.0 [facility] MCHC Auto (RBC) [Mass/Vol]on 02-01-2024 MCHC (RBC) [Mass/Vol] 32.2 g/dL 29.9-35.2 [facility] MCV Auto (RBC) [Entitic vol] on 02-01-2024 MCV (RBC) [Entitic vol] 96.1 fL High 80.0-94.0 [facility] No Panel Informationon 01-31 25-Hydroxy Vitamin D Total 94.2 ng/mL [facility] Comment on above: <20 ng/mL Vit D defi cient20-<30 ng/mL Vit D gyblmaearokr42-899 ng/mL Vit D sufficient>100 ng/mL Potential Toxicity Parathyroid Hormone (Intact) 52 pg/mL 15-65 [facility] Comment on above: Performed at: [facility] [place], [place] [id number] Director: Nathan Munoz PhD, Phone: [phone] Phosphorus Level 4.1 mg/dL 2.6-4.7 [facility] Prostate Specific Antigen Screen 0.91 ng/mL <=4.00 [facility] Total Triiodothyronine 73 ng/dL 71-[address] [facility] Comment on above: Performed at: [facility] [place] [id number] Director: Nathan Munoz PhD, Phone: [phone] Urine Random Creatinine 77.24 mg/dL 20.0 0-300.0 0 [facility] Platelet mean volume Auto (B ld) [Entitic vol]on 02-01-2024 Platelet mean volume (Bld) [Entitic vol] 9.5 fL 9.5-13.5 [facility] Platelets Auto (Bld) [#/Vol] on 02-01-2024 Platelets (Bld) [#/Vol] 199 10 3/uL 150-450 [facility] Protein Auto test strip (U) [Mass/Vol]on 02-01-2024 Protein (U) [Mass/Vol] TRACE mg/dL NEG/TRACE [facility] RBC Auto (Bld) [#/Vol]on RBC (Bld) [#/Vol] 3.85 10 6/uL Low 4.70-6.10 [facility] Serum or plasma anion gap de terminationon 02-01-2024 Anion gap [Moles/Vol] 12.3 mmol/L [facility] Specific gravity Auto test s trip (U) [Rel density]on 02-01-2024 Specific gravity (U) [Rel density] CLEAR CLEAR [facility] Urine hemoglobin detection b y automated test stripon 02-01-2024 Hemoglobin Auto test strip Ql (U) Negative NEGATIVE [facility] Urine nitrite detection by a utomated test stripon 02-01-2024 Nitrite Auto test strip Ql (U) SMALL Abnormal NEGATIVE [facility] Nitrite Auto test strip Ql (U) Negative NEGATIVE [facility] Urine protein/creatinine rat ioon 02-01-2024 Protein/Creatinine (U) [Ratio] 0.32 [facility] Urobilinogen Auto test strip (U) [Mass/Vol]on 02-01-2024 Urobilinogen Qn (U) 0.2 {Jagruti'U}/dL 0.2-1.0 [facility] pH Auto test strip (U)on pH (U) 6.0 [pH] 5.0-9.0 [facility] Cholesterol in LDL Calc [Mas s/Vol]on 12-19-2023 Cholesterol in LDL [Mass/Vol] 81.8 mg/dL [facility] Comment on above: <100 mg/dl [id number] 0-129 mg/dl NEAR OR ABOVE [id number] mg/dl BORDERLINE [id number] mg/dl HIGH>190 mg/dl VERY HIGH Cholesterol in VLDL Calc [Ma ss/Vol]on 12-19-2023 Cholesterol in VLDL [Mass/Vol] 23.2 mg/dL [facility] Glucose mean value [Mass/vol ume] in Blood Estimated from glycated hemoglobinon 12-19-2023 Average glucose Estimated from glycated hemoglobin (Bld) [Mass/Vol] 137 mg/dL [facility] Laboratory - Chemistry and C hemistry - challengeon 12-19-2023 Cholesterol [Mass/Vol] 148 mg/dL <=200 [facility] Cholesterol in HDL [Mass/Vol] 43 mg/dL 40-60 [facility] Comment on above: > or =60 mg/dl - LOW CARDIOVASCULAR RISK<40 mg/dl - HIGH CARDIOVASCULAR RISK Free T4 [Mass/Vol] 1.04 ng/dL 0.76-1.46 [facility] Triglyceride [Mass/Vol] 116 mg/dL <=[address] [facility] TSH Qn 11.812 m[IU]/L 0.358-3.740 [facility] Laboratory - Hematology and Cell countson 12-19-2023 HbA1c (Bld) [Mass fraction] 6.4 % 4.5-6.2 [facility] Comment on above: ADA RECOMMENDED LIMI T 4.0 - 6.0ADA THERAPEUTIC TARGET < 7.0ACTION SUGGESTED> 7.0 Serum or plasma total choles terol/high density lipoprotein (HDL) cholesterol mass ernesto 12-19-2023 Cholesterol.total/Cholest vito in HDL [Mass ratio] 3.4 {ratio} [facility] Comment on above: 3.3 - 4.4 LOW RISK4. 4 - 7.1 AVERAGE RISK7.1 - 11.0 MODERATE RISK>11.0 HIGH RISK Alanine aminotransferase [En zymatic activity/volume] in Serum or PlasmaOrdered By: Leigha Nelson on 08-30-2023 ALT [Catalytic activity/Vol] 20 U/L 7-52 [facility] Albumin [Mass/volume] in Ser um or Plasma by Bromocresol green (BCG) dye binding methoOrdered By: Leigha Nelson on 08-30-2023 Albumin BCG dye [Mass/Vol] 4.4 g/dL 3.5-5.7 [facility] Alkaline phosphatase [Enzyma tic activity/volume] in Serum or PlasmaOrdered By: Leigha Nelson on 08-30-2023 ALP [Catalytic activity/Vol] 114 U/L 34-104 [facility] Aspartate aminotransferase [ Enzymatic activity/volume] in Serum or PlasmaOrdered By: Leigha Nelson on 08-30-2023 AST [Catalytic activity/Vol] 23 U/L 13-39 [facility] Basophils Auto (Bld) [#/Vol] Ordered By: Leigha Nelson on 08-30-2023 Basophils (Bld) [#/Vol] 0.0 10*3/uL 0.0-0.2 [facility] Basophils/100 WBC Auto (Bld) Ordered By: Leigha Nelson on 08-30-2023 Basophils/100 WBC (Bld) 0.5 % . [facility] Bilirubin.total [Mass/volume ] in Serum or PlasmaOrdered By: Leigha Nelson on 08-30-2023 Bilirubin [Mass/Vol] 0.8 mg/dL 0.3-1.0 [facility] Calcium [Mass/volume] in Ser um or PlasmaOrdered By: Leigha Nelson on 08-30-2023 Calcium [Mass/Vol] 9.7 mg/dL 8.6-10.3 [facility] Carbon dioxide, total [Moles /volume] in Serum or PlasmaOrdered By: Leigha Nelson on 08-30-2023 CO2 [Moles/Vol] 35.5 mmol/L 21.0-31.0 [facility] Chloride [Moles/volume] in S alayna or PlasmaOrdered By: Leigha Nelson on 08-30-2023 Chloride [Moles/Vol] 102 mmol/L 98-107 [facility] Creatinine [Mass/volume] in Serum or PlasmaOrdered By: Leigha Nelson on 08-30-2023 Creatinine [Mass/Vol] 2.29 mg/dL 0.70-1.30 [facility] Eosinophils Auto (Bld) [#/Vo l]Ordered By: Leigha Nelson on 08-30-2023 Eosinophils (Bld) [#/Vol] 0.3 10*3/uL 0.0-0.45 [facility] Eosinophils/100 WBC Auto (Bl d)Ordered By: Leigha Nelson on 08-30-2023 Eosinophils/100 WBC (Bld) 3.8 % . [facility] Erythrocyte distribution wid th Auto (RBC) [Ratio]Ordered By: Leigha Nelson on 08-30-2023 Erythrocyte distribution width (RBC) [Ratio] 14.8 % 12.0-14.8 [facility] Ferritin [Mass/volume] in Se rum or PlasmaOrdered By: Leigha Nelson on 08-30-2023 Ferritin [Mass/Vol] 239.3 ng/mL 23.9-336.2 [facility] Globulin Calc (S) [Mass/Vol] Ordered By: Leigha Nelson on 08-30-2023 Globulin (S) [Mass/Vol] 2.5 g/dL [facility] Glucose [Mass/volume] in Ser um or PlasmaOrdered By: Leigha Nelson on 08-30-2023 Glucose [Mass/Vol] 111 mg/dL 70-100 [facility] Comment on above: ADA recommended refe rence rangeRandom Glucose Reference Range is dependent on time and content of last meal. Glucose of more than 200 mg/dL in a nonstressed, ambulatory subject supports the diagnosis of Diabetes Mellitus. Hematocrit Auto (Bld) [Volum e fraction]Ordered By: Leigha Nelson on 08-30-2023 Hematocrit (Bld) [Volume fraction] 36.8 % 38.8-50.0 [facility] Hemoglobin [Mass/volume] in BloodOrdered By: Leigha Nelson on 08-30-2023 Hemoglobin (Bld) [Mass/Vol] 12.3 g/dL 13.0-17.0 [facility] Iron [Mass/volume] in Serum or PlasmaOrdered By: Leigha Nelson on 08-30-2023 Iron [Mass/Vol] 84 ug/dL 50-212 [facility] Iron binding capacity [Mass/ volume] in Serum or PlasmaOrdered By: Leigha Nelson on 08-30-2023 Iron binding capacity [Mass/Vol] 290 ug/dL 255-450 [facility] Iron saturation [Mass Fracti on] in Serum or PlasmaOrdered By: Leigha Nelson on 08-30-2023 Iron saturation [Mass fraction] 29.0 % 20-50 [facility] Leukocytes [#/volume] correc bonnie for nucleated erythrocytes in Blood by Automated counOrdered By: Leigha Nelson on 08-30-2023 WBC corrected for nucl RBC Auto (Bld) [#/Vol] 7.0 10*3/uL 4.1-10.5 [facility] Lymphocytes Auto (Bld) [#/Vo l]Ordered By: Leigha Nelson on 08-30-2023 Lymphocytes (Bld) [#/Vol] 1.5 10*3/uL 1.00-4.8 [facility] Lymphocytes/100 WBC Auto (Bl d)Ordered By: Leigha Nelson on 08-30-2023 Lymphocytes/100 WBC (Bld) 21.9 % . [facility] MCH Auto (RBC) [Entitic mass ]Ordered By: Leigha Nelson on 08-30-2023 MCH (RBC) [Entitic mass] 30.9 pg 27.5-35.2 [facility] MCHC Auto (RBC) [Mass/Vol]Or dered By: Leigha Nelson on 08-30-2023 MCHC (RBC) [Mass/Vol] 33.3 g/dL 32.5-35.6 [facility] MCV Auto (RBC) [Entitic vol] Ordered By: Leigha Nelson on 08-30-2023 MCV (RBC) [Entitic vol] 92.8 fL 83.5-[address] [facility] Monocytes Auto (Bld) [#/Vol] Ordered By: Leigha Nelson on 08-30-2023 Monocytes (Bld) [#/Vol] 0.5 10*3/uL 0.0-0.8 [facility] Monocytes/100 WBC Auto (Bld) Ordered By: Leigha Nelson on 08-30-2023 Monocytes/100 WBC (Bld) 7.9 % . [facility] Neutrophils Auto (Bld) [#/Vo l]Ordered By: Leigha Nelson on 08-30-2023 Neutrophils (Bld) [#/Vol] 4.6 10*3/uL 1.8-7.7 [facility] Neutrophils/100 WBC Auto (Bl d)Ordered By: Leigha Nelson on 08-30-2023 Neutrophils/100 WBC (Bld) 65.9 % . [facility] No Panel InformationOrdered By: Leigha Nelson on 08-30-2023 Estimated GFR (CKD-EPI) 27.976 mL/Min [facility] Creatinine Clearance (Chem 30.81 [facility] Nucleated erythrocytes [Pres ence] in Blood by Automated countOrdered By: Leigha Nelson on 08-30-2023 Nucleated RBC Auto Ql (Bld) 0.1 /100{WBC} 0-0.5 [facility] Platelet mean volume Auto (B ld) [Entitic vol]Ordered By: Leigha Nelson on 08-30-2023 Platelet mean volume (Bld) [Entitic vol] 7.6 fL 6.6-10.1 [facility] Platelets Auto (Bld) [#/Vol] Ordered By: Leigha Nelson on 08-30-2023 Platelets (Bld) [#/Vol] 206 10*3/uL 150-450 [facility] Potassium [Moles/volume] in Serum or PlasmaOrdered By: Leigha Nelson on 08-30-2023 Potassium [Moles/Vol] 4.5 mmol/L 3.5-5.1 [facility] Protein [Mass/volume] in Ser um or PlasmaOrdered By: Leigha Nelson on 08-30-2023 Protein [Mass/Vol] 6.9 g/dL 6.4-8.9 [facility] RBC Auto (Bld) [#/Vol]Ordere d By: Leigha Nelson on 08-30-2023 RBC (Bld) [#/Vol] 3.96 10*6/uL 3.90-5.60 [facility] Serum or plasma albumin/glob ulin mass ratioOrdered By: Leigha Nelson on 08-30-2023 Albumin/Globulin [Mass ratio] 1.8 {ratio} [facility] Serum or plasma anion gap de terminationOrdered By: Leigha Nelson on 08-30-2023 Anion gap [Moles/Vol] 10.0 mmol/L 6.0-15.0 [facility] Serum or plasma carcinoembry onic antigen measurement (mass/volume)Ordered By: Leigha Nelson on 08-30-2023 Carcinoembryonic Ag [Mass/Vol] 2.1 ng/mL 0.0-3.0 [facility] Sodium [Moles/volume] in Ser um or PlasmaOrdered By: Leigha Nelson on 08-30-2023 Sodium [Moles/Vol] 143 mmol/L 136-145 [facility] Transferrin [Mass/volume] in Serum or PlasmaOrdered By: Leigha Nelson on 08-30-2023 Transferrin [Mass/Vol] 207 mg/dL 203-362 [facility] Urea nitrogen [Mass/volume] in Serum or PlasmaOrdered By: Leigha Nelson on 08-30-2023 Urea nitrogen [Mass/Vol] 51 mg/dL 7-25 [facility] WBC Auto (Bld) [#/Vol]Ordere d By: Leigha Nelson on 08-30-2023 WBC (Bld) [#/Vol] 7.0 10*3/uL 4.1-10.5 [facility] ECHOCARDIO M/2D COMPLETEon 0 02-28-2023 ECHOCARDIO M/2D COMPLETE Patient: DELANO REN Exam Date: 02/28/2023 : 1940 Gender:M Ordering : [employer] Admission #: [id number] Family : DR YAS LINDA D.Rosario Order #: [id number] CLICK HERE TO VIEW EXAM ECHOCARDIOGRAM REPORT [...] Gradient: 3.27 mm[Hg] Right Atrium Dictated by: Adan Ortiz M.D. on 02/28/2023 at 20:18 Approved by: Adan Ortiz M.D. on 02/28/2023 at 20:26 Normal [facility] T3, TOTAL (TRIIODOTHYRONINE) on 02-16-2023 T3, TOTAL 83 ng/dL Normal 71-180 [facility] Comment on above: Performed By: #### F T4, PSASC #### [facility] [address] [address] [address] Benito Schwartz FREE T4on 02-15-2023 Free T4 [Mass/Vol] 1.03 ng/dL Normal 0.76-1.46 [facility] Comment on above: Performed By: #### F T4 #### [facility] [address] [place] [address] Dr. Benito Schwartz LIPID PROFILEon 02-15-2023 CHOL-HDL RATIO NORM SEE BELOW Normal [facility] Comment on above: Result Comment: 3.3 - 4.4 LOW RISK 4.4 - 7.1 AVERAGE RISK 7.1 - 11.0 MODERATE RISK >11.0 HIGH RISK Performed By: #### T SH, FT3, BMP #### [facility] [address] [place] [address] Dr. Benito Schwartz Cholesterol [Mass/Vol] 164 mg/dL Normal <=200 [facility] Comment on above: Performed By: #### T SH, FT3, BMP #### [facility] [facility] [address] [place] [address] Dr. Benito Schwartz Cholesterol in HDL [Mass/Vol] 41 mg/dL Normal 40-60 [facility] Comment on above: Performed By: #### T SH, FT3, BMP #### [facility] [address] [place] [address] Dr. Benito Schwartz Cholesterol in LDL [Mass/Vol] 104.2 mg/dL Normal [facility] Comment on above: Performed By: #### T SH, FT3, BMP #### [facility] [address] [place] [address] Dr. Benito Schwartz Cholesterol.total/Cholest vito in HDL [Mass ratio] 4.0 {ratio} Normal [facility] Comment on above: Performed By: #### T SH, FT3, BMP #### [facility] [address] [place] [address] Dr. Benito Schwartz HDL NORMAL > or = 60 mg/dl - LOW CARDIOVASCULAR RISK <40 mg/dl - HIGH CARDIOVASCULAR RISK Normal [facility] Comment on above: Performed By: #### T SH, FT3, BMP #### [facility] [address] [place] [address] Dr. Benito Schwartz LDL CALC NORMAL SEE BELOW Normal [facility] Comment on above: Result Comment: <100 mg/dl OPTIMAL 100 - 129 mg/dl NEAR OR ABOVE OPTIMAL 130 - 159 mg/dl BORDERLINE HIGH 160 - 189 mg/dl HIGH >190 mg/dl VERY HIGH Performed By: #### T SH, FT3, BMP #### [facility] [address] [place] [address] Dr. Benito Schwartz Triglyceride [Mass/Vol] 94 mg/dL Normal <=150 [facility] Comment on above: Performed By: #### T SH, FT3, BMP #### [facility] [address] [place] [address] Dr. Benito Schwartz VLDL CALC 18.8 mg/dL Normal [facility] Comment on above: Performed By: #### T SH, FT3, BMP #### [facility] [address] [place] [address] Dr. Benito Schwartz TSHon 02-15-2023 TSH 22.732 uIU/mL Critically high 0.358-3.740 [facility] Comment on above: Performed By: #### F T4, PSASC #### [facility] [address] [place] [address] Dr. Benito Schwartz PTH INTACTon 01-03-2023 PTH, Intact 46 pg/mL Normal 15-65 [facility] Comment on above: Performed By: #### U RTPCR #### [facility] [address] [place] [address] Dr. Benito Schwartz T3, TOTAL (TRIIODOTHYRONINE) on 01-03-2023 T3, TOTAL 77 ng/dL Normal 71-180 [facility] Comment on above: Performed By: #### T SH, FT3, BMP #### [facility] [address] [place] [address] Dr. Benito Schwartz CBC AUTO DIFFon 01-02-2023 BASO # 0.0 103/ul Normal 0.0-0.1 [facility] Comment on above: Performed By: #### C BC #### [facility] [address] [place] [address] Dr. Benito Schwartz Basophils/100 WBC (Bld) 0.4 % Normal 0.2-2.0 [facility] Comment on above: Performed By: #### C BC #### [facility] [address] [place] [address] Dr. Benito Schawrtz EO # 0.4 103/ul Normal 0.0-0.7 [facility] Comment on above: Performed By: #### C BC #### [facility] [address] [place] [address] Dr. Benito Schwartz Eosinophils/100 WBC (Bld) 5.1 % Normal 0.9-7.0 [facility] Comment on above: Performed By: #### C BC #### [facility] [address] [place] [address] Dr. Benito Schwartz Erythrocyte distribution width (RBC) [Ratio] 13.2 % Normal 11.0-15.0 [facility] Comment on above: Performed By: #### C BC #### [facility] [address] [place] [address] Dr. Benito Schwartz Hematocrit (Bld) [Volume fraction] 37.4 % Critically low 42.0-54.0 [facility] Comment on above: Performed By: #### C BC #### [facility] [address] [place] [address] Dr. Benito Schwartz Hemoglobin (Bld) [Mass/Vol] 12.4 g/dL Critically low 14.0-18.0 [facility] Comment on above: Performed By: #### C BC #### [facility] [address] [place] [address] Dr. Benito Schwartz IG # 0.03 10e3/ul Normal 0.00-0.03 [facility] Comment on above: Performed By: #### C BC #### [facility] [address] [place] [address] Dr. Benito Schwartz IG % 0.4 % Normal 0.0-0.5 [facility] Comment on above: Performed By: #### C BC #### [facility] [address] [address] [address] Benito Schwartz LYMPH # 1.6 103/ul Normal 1.2-3.8 [facility] Comment on above: Performed By: #### C BC #### [facility] [address] [address] [address] Benito Schwartz Lymphocytes/100 WBC (Bld) 20.3 % Critically low 20.5-6 0.0 [facility] Comment on above: Performed By: #### C BC #### [facility] [address] [place] [address] Dr. Benito Schwartz MANUAL DIFF REQ NO Normal [facility] Comment on above: Performed By: #### C BC #### [facility] [address] [place] [address] Dr. Benito Schwartz MCH (RBC) [Entitic mass] 31.7 pg Normal 25.9-34.0 [facility] Comment on above: Performed By: #### C BC #### [facility] [address] [place] [address] Dr. Benito Schwartz MCHC (RBC) [Mass/Vol] 33.2 g/dL Normal 29.9-35.2 [facility] Comment on above: Performed By: #### C BC #### [facility] [address] [place] [address] Dr. Benito Schwartz MCV (RBC) [Entitic vol] 95.7 fL Critically high 80.0-94 .0 [facility] Comment on above: Performed By: #### C BC #### [facility] [address] [place] [address] Dr. Benito Schwartz MONO # 0.7 103/ul Normal 0.3-0.8 [facility] Comment on above: Performed By: #### C BC #### [facility] [address] [place] [address] Dr. Benito Schwartz Monocytes/100 WBC (Bld) 8.6 % Normal 1.7-12.0 [facility] Comment on above: Performed By: #### C BC #### [facility] [address] [address] [address] Benito Schwartz NEUT # 5.3 103/ul Normal 1.4-6.5 [facility] Comment on above: Performed By: #### C BC #### [facility] [address] [address] [address] Benito Schwartz Neutrophils/100 WBC (Bld) 65.2 % Normal 43.0-75.0 [facility] Comment on above: Performed By: #### C BC #### [facility] [address] [address] [address] Benito Schwartz Platelet mean volume (Bld) [Entitic vol] 9.0 fL Critically low 9.5-13.5 [facility] Comment on above: Performed By: #### C BC #### [facility] [address] [place] [address] Dr. Benito Schwartz PLT 209 103/ul Normal 150-450 [facility] Comment on above: Performed By: #### C BC #### [facility] [address] [place] [address] Dr. Benito Schwartz RBC 3.91 106/ul Critically low 4.70-6.10 [facility] Comment on above: Performed By: #### C BC #### [facility] [address] [place] [address] Dr. Benito Schwartz WBC 8.1 103/ul Normal 4.0-11.0 [facility] Comment on above: Performed By: #### C BC #### [facility] [address] [place] [address] Dr. Benito Schwartz FREE T4on 01-02-2023 Free T4 [Mass/Vol] 0.87 ng/dL Normal 0.76-1.46 [facility] Comment on above: Performed By: #### F T4, PSASC #### [facility] [address] [place] [address] Dr. Benito Schwartz GLYCOHEMOGLOBIN A1Con 2022 ADA RECOMMENDATION SEE BELOW Normal [facility] Comment on above: Result Comment: ADA RECOMMENDED LIMIT 4.0 - 6.0 ADA THERAPEUTIC TARGET < 7.0 ACTION SUGGESTED > 7.0 Performed By: #### C BC #### [facility] [address] [place] [address] Dr. Benito Schwartz Glucose [Mass/Vol] 126 mg/dL Normal [facility] Comment on above: Performed By: #### C BC #### [facility] [address] [place] [address] Dr. Benito Schwartz HbA1c (Bld) [Mass fraction] 6.0 % Normal 4.5-6.2 [facility] Comment on above: Performed By: #### C BC #### [facility] [address] [place] [address] Dr. Benito Schwartz MAGNESIUMon 01-02-2023 Magnesium [Mass/Vol] 2.3 mg/dL Normal 1.8-2.4 [facility] Comment on above: Performed By: #### U RTPCR #### [facility] [address] [place] [address] Dr. Benito Schwartz PHOSPHORUSon 01-02-2023 Phosphate [Mass/Vol] 4.1 mg/dL Normal 2.6-4.7 [facility] Comment on above: Performed By: #### U RTPCR #### [facility] [address] [place] [address] Dr. Benito Schwartz PROF CHEM 8 (BAS METB)on Anion gap [Moles/Vol] 11.1 mmol/L Normal [facility] Comment on above: Performed By: #### U RTPCR #### [facility] [address] [place] [address] Dr. Benito Schwartz Calcium [Mass/Vol] 8.9 mg/dL Normal 8.5-10.1 [facility] Comment on above: Performed By: #### U RTPCR #### [facility] [address] [place] [address] Dr. Benito Schwartz Chloride [Moles/Vol] 100 mmol/L Normal 98-107 [facility] Comment on above: Performed By: #### U RTPCR #### [facility] [address] [place] [address] Dr. Benito Schwartz CO2 [Moles/Vol] 33.2 mmol/L Critically high 21.0-32.0 [facility] Comment on above: Performed By: #### U RTPCR #### [facility] [address] [address] [address] Benito Schwartz Creatinine [Mass/Vol] 2.31 mg/dL Critically high 0.70-1.30 [facility] Comment on above: Performed By: #### U RTPCR #### [facility] [address] [address] [address] Benito Schwartz EGFR-AF DOMINICAN 33 mL/min/1.73m2 Critically low >=60 [facility] Comment on above: Performed By: #### U RTPCR #### [facility] [address] [address] [address] Benito Schwartz EGFR-NON AF DOMINICAN 27 mL/min/1.73m2 Critically low >=60 [facility] Comment on above: Performed By: #### U RTPCR #### [facility] [address] [address] [address] Benito Schwartz Glucose [Mass/Vol] 112 mg/dL Critically high 74-106 [facility] Comment on above: Performed By: #### U RTPCR #### [facility] [address] [address] [address] Benito Schwartz Potassium [Moles/Vol] 4.3 mmol/L Normal 3.5-5.1 [facility] Comment on above: Performed By: #### U RTPCR #### [facility] [address] [address] [address] Benito Schwartz Sodium [Moles/Vol] 140 mmol/L Normal 136-145 [facility] Comment on above: Performed By: #### U RTPCR #### [facility] [address] [address] [address] Benito Schwartz Urea nitrogen [Mass/Vol] 51.0 mg/dL Critically high 7.0-18 .0 [facility] Comment on above: Performed By: #### U RTPCR #### [facility] [address] [place] [address] Dr. Benito Shcwartz Urea nitrogen/Creatinine [Mass ratio] 22.1 mg/mg Normal [facility] Comment on above: Performed By: #### U RTPCR #### [facility] [address] [place] [address] Dr. Benito Schwartz TSHon 01-02-2023 TSH 27.692 uIU/mL Critically high 0.358-3.740 [facility] Comment on above: Performed By: #### C BC #### [facility] [address] [place] [address] Dr. Benito Schwartz UA RANDOMon 01-02-2023 Bilirubin Ql (U) Negative Normal NEGATIVE [facility] Comment on above: Performed By: #### U RTPCR #### [facility] [address] [place] [address] Dr. Benito Schwartz Clarity (U) CLEAR Normal CLEAR [facility] Comment on above: Performed By: #### U RTPCR #### [facility] [address] [place] [address] Dr. Benito Schwartz Color (U) LT. YELLOW Normal YELLOW [facility] Comment on above: Performed By: #### U RTPCR #### [facility] [address] [place] [address] Dr. Benito Schwartz Glucose Ql (U) Negative Normal NEGATIVE [facility] Comment on above: Performed By: #### U RTPCR #### [facility] [address] [place] [address] Dr. Benito Schwartz Hemoglobin Ql (U) Negative Normal NEGATIVE [facility] Comment on above: Performed By: #### U RTPCR #### [facility] [address] [place] [address] Dr. Benito Schwartz Ketones Ql (U) Negative Normal NEGATIVE [facility] Comment on above: Performed By: #### U RTPCR #### [facility] [address] [place] [address] Dr. Benito Schwartz LEUKOCYTES Negative Normal NEGATIVE [facility] Comment on above: Performed By: #### U RTPCR #### [facility] [address] [place] [address] Dr. Benito Schwartz Nitrite Ql (U) Negative Normal NEGATIVE [facility] Comment on above: Performed By: #### U RTPCR #### [facility] [address] [place] [address] Dr. Benito Schwartz pH (U) 6.0 [pH] Normal 5-9 [facility] Comment on above: Performed By: #### U RTPCR #### [facility] [address] [place] [address] Dr. Benito Schwartz SPEC GRAVITY <=1.005 Abnormal 1.005-<=1.0 25 [facility] Comment on above: Performed By: #### U RTPCR #### [facility] [address] [place] [address] Dr. Benito Schwartz UA PROTEIN Negative Normal NEGATIVE/ TRACE [facility] Comment on above: Performed By: #### U RTPCR #### [facility] [address] [place] [address] Dr. Benito Schwartz Urobilinogen Qn (U) 0.2 {Jagruti'U}/dL Normal 0.2 - 1. 0 [facility] Comment on above: Performed By: #### U RTPCR #### [facility] [address] [place] [address] Dr. Benito Schwartz URINE T PROTEIN CREAT RATIOo n 01-02-2023 Protein (U) [Mass/Vol] 19.1 mg/dL Critically high <=12.0 [facility] Comment on above: Performed By: #### F T4, PSASC #### [facility] [address] [place] [address] Dr. Benito Schwartz UR PROT CREAT RAT 0.75 Normal [facility] Comment on above: Performed By: #### F T4, PSASC #### [facility] [address] [place] [address] Dr. Benito Schwartz URINE CREAT 25.63 mg/dL Normal 20.00-300.0 0 [facility] Comment on above: Performed By: #### F T4, PSASC #### [facility] [address] [place] [address] Dr. Benito Schwartz VITAMIN D 25 OHon 01-02-2023 VIT D 25-OH 86.8 ng/mL Normal [facility] Comment on above: Performed By: #### U RTPCR #### [facility] [address] [place] [address] Dr. Benito Schwartz VIT D RANGES SEE BELOW Normal [facility] Comment on above: Result Comment: <20 ng/mL Vit D deficient 20 - <30 ng/mL Vit D insufficient 30 - 100 ng/mL Vit D sufficient >100 ng/mL Potential Toxicity Performed By: #### U RTPCR #### [facility] [address] [place] [address] Dr. Benito Schwartz T3, TOTAL (TRIIODOTHYRONINE) on 11-17-2022 T3, TOTAL 82 ng/dL Normal 71-180 [facility] Comment on above: Performed By: #### V ITAD #### [facility] [address] [place] [address] Dr. Benito Schwartz FREE T4on 11-16-2022 Free T4 [Mass/Vol] 0.93 ng/dL Normal 0.76-1.46 [facility] Comment on above: Performed By: #### C BC #### [facility] [address] [place] [address] Dr. Benito Schwartz TSHon 11-16-2022 TSH 31.189 uIU/mL Critically high 0.358-3.740 [facility] Comment on above: Performed By: #### F T4, PSASC #### [facility] [address] [place] [address] Dr. Benito Schwartz T3, TOTAL (TRIIODOTHYRONINE) on 10-04-2022 T3, TOTAL 43 ng/dL Critically low 71-180 [facility] Comment on above: Performed By: #### F T4, PSASC #### [facility] [address] [place] [address] Dr. Benito Schwartz FREE T4on 10-03-2022 Free T4 [Mass/Vol] 0.35 ng/dL Critically low 0.76-1.46 [facility] Comment on above: Performed By: #### F T4, PSASC #### [facility] [address] [place] [address] Dr. Benito Schwartz TSHon 10-03-2022 TSH 121.174 uIU/mL Critically high 0.358-3.740 [facility] Comment on above: Performed By: #### F T4, PSASC #### [facility] [address] [place] [address] Dr. Benito Schwartz MAGNESIUMon 09-22-2022 Magnesium [Mass/Vol] 2.5 mg/dL Critically high 1.8-2.4 [facility] Comment on above: Performed By: #### F T4 #### [facility] [address] [place] [address] Dr. Benito Schwartz PROF CHEM 8 (BAS METB)on Anion gap [Moles/Vol] 7.3 mmol/L Normal [facility] Comment on above: Performed By: #### F T4 #### [facility] [address] [place] [address] Dr. Benito Schwartz Calcium [Mass/Vol] 8.8 mg/dL Normal 8.5-10.1 [facility] Comment on above: Performed By: #### F T4 #### [facility] [address] [place] [address] Dr. Benito Schwartz Chloride [Moles/Vol] 100 mmol/L Normal 98-107 [facility] Comment on above: Performed By: #### F T4 #### [facility] [address] [place] [address] Dr. Benito Schwartz CO2 [Moles/Vol] 33.7 mmol/L Critically high 21.0-32.0 [facility] Comment on above: Performed By: #### F T4 #### [facility] [address] [place] [address] Dr. Benito Schwartz Creatinine [Mass/Vol] 2.43 mg/dL Critically high 0.70-1.30 [facility] Comment on above: Performed By: #### F T4 #### [facility] [address] [place] [address] Dr. Benito Schwartz EGFR-AF DOMINICAN 31 mL/min/1.73m2 Critically low >=60 [facility] Comment on above: Performed By: #### F T4 #### [facility] [address] [address] [address] Benito Schwartz EGFR-NON AF DOMINICAN 26 mL/min/1.73m2 Critically low >=60 [facility] Comment on above: Performed By: #### F T4 #### [facility] [address] [address] [address] Benito Schwartz Glucose [Mass/Vol] 136 mg/dL Critically high 74-106 [facility] Comment on above: Performed By: #### F T4 #### [facility] [address] [address] [address] Benito Schwartz Potassium [Moles/Vol] 4.0 mmol/L Normal 3.5-5.1 [facility] Comment on above: Performed By: #### F T4 #### [facility] [address] [address] [address] Benito Schwartz Sodium [Moles/Vol] 137 mmol/L Normal 136-145 [facility] Comment on above: Performed By: #### F T4 #### [facility] [address] [place] [address] Dr. Benito Schwartz Urea nitrogen [Mass/Vol] 47.0 mg/dL Critically high 7.0-18 .0 [facility] Comment on above: Performed By: #### F T4 #### [facility] [address] [address] [address] Benito Schwartz Urea nitrogen/Creatinine [Mass ratio] 19.3 mg/mg Normal [facility] Comment on above: Performed By: #### F T4 #### [facility] [address] [place] [address] Dr. Benito Schwartz PTH INTACTon 09-10-2022 PTH, Intact 36 pg/mL Normal 15-65 [facility] Comment on above: Performed By: #### F T4, PSASC #### [facility] [address] [place] [address] Dr. Benito Schwartz CBC AUTO DIFFon 09-09-2022 BASO # 0.0 103/ul Normal 0.0-0.1 [facility] Comment on above: Performed By: #### F T4, PSASC #### [facility] [address] [place] [address] Dr. Benito Schwartz Basophils/100 WBC (Bld) 0.5 % Normal 0.2-2.0 [facility] Comment on above: Performed By: #### F T4, PSASC #### [facility] [address] [place] [address] Dr. Benito Schwartz EO # 0.4 103/ul Normal 0.0-0.7 [facility] Comment on above: Performed By: #### F T4, PSASC #### [facility] [address] [place] [address] Dr. Benito Schwartz Eosinophils/100 WBC (Bld) 5.3 % Normal 0.9-7.0 [facility] Comment on above: Performed By: #### F T4, PSASC #### [facility] [address] [place] [address] Dr. Benito Schwartz Erythrocyte distribution width (RBC) [Ratio] 14.3 % Normal 11.0-15.0 [facility] Comment on above: Performed By: #### F T4, PSASC #### [facility] [address] [place] [address] Dr. Benito Schwartz Hematocrit (Bld) [Volume fraction] 36.9 % Critically low 42.0-54.0 [facility] Comment on above: Performed By: #### F T4, PSASC #### [facility] [address] [place] [address] Dr. Benito Schwartz Hemoglobin (Bld) [Mass/Vol] 12.4 g/dL Critically low 14.0-18.0 [facility] Comment on above: Performed By: #### F T4, PSASC #### [facility] [address] [place] [address] Dr. Benito Schwartz IG # 0.04 10e3/ul Critically high 0.00-0.03 [facility] Comment on above: Performed By: #### F T4, PSASC #### [facility] [address] [address] [address] Benito Schwartz IG % 0.5 % Normal 0.0-0.5 [facility] Comment on above: Performed By: #### F T4, PSASC #### [facility] [address] [address] [address] Benito Schwartz LYMPH # 1.6 103/ul Normal 1.2-3.8 [facility] Comment on above: Performed By: #### F T4, PSASC #### [facility] [address] [address] [address] Benito Schwartz Lymphocytes/100 WBC (Bld) 22.2 % Normal 20.5-60.0 [facility] Comment on above: Performed By: #### F T4, PSASC #### [facility] [address] [address] [address] Benito Schwartz MANUAL DIFF REQ NO Normal [facility] Comment on above: Performed By: #### F T4, PSASC #### [facility] [address] [address] [address] Benito Schwartz MCH (RBC) [Entitic mass] 31.2 pg Normal 25.9-34.0 [facility] Comment on above: Performed By: #### F T4, PSASC #### [facility] [address] [address] [address] Benito Schwartz MCHC (RBC) [Mass/Vol] 33.6 g/dL Normal 29.9-35.2 [facility] Comment on above: Performed By: #### F T4, PSASC #### [facility] [address] [address] [address] Benito Schwartz MCV (RBC) [Entitic vol] 92.7 fL Normal 80.0-94.0 [facility] Comment on above: Performed By: #### F T4, PSASC #### [facility] [address] [address] [address] Benito Schwartz MONO # 0.5 103/ul Normal 0.3-0.8 [facility] Comment on above: Performed By: #### F T4, PSASC #### [facility] [address] [place] [address] Dr. Benito Schwartz Monocytes/100 WBC (Bld) 6.4 % Normal 1.7-12.0 [facility] Comment on above: Performed By: #### F T4, PSASC #### [facility] [address] [place] [address] Dr. Benito Schwartz NEUT # 4.8 103/ul Normal 1.4-6.5 [facility] Comment on above: Performed By: #### F T4, PSASC #### [facility] [address] [place] [address] Dr. Benito Schwartz Neutrophils/100 WBC (Bld) 65.1 % Normal 43.0-75.0 [facility] Comment on above: Performed By: #### F T4, PSASC #### [facility] [address] [place] [address] Dr. Benito Schwartz Platelet mean volume (Bld) [Entitic vol] 8.7 fL Critically low 9.5-13.5 [facility] Comment on above: Performed By: #### F T4, PSASC #### [facility] [address] [place] [address] Dr. Benito Schwartz PLT 206 103/ul Normal 150-450 [facility] Comment on above: Performed By: #### F T4, PSASC #### [facility] [address] [place] [address] Dr. Benito Schwartz RBC 3.98 106/ul Critically low 4.70-6.10 [facility] Comment on above: Performed By: #### F T4, PSASC #### [facility] [address] [place] [address] Dr. Benito Schwartz WBC 7.4 103/ul Normal 4.0-11.0 [facility] Comment on above: Performed By: #### F T4, PSASC #### [facility] [address] [place] [address] Dr. Benito Schwartz MAGNESIUMon 09-09-2022 Magnesium [Mass/Vol] 2.1 mg/dL Normal 1.8-2.4 [facility] Comment on above: Performed By: #### B 12FOL, FETIBC #### [facility] [address] [place] [address] Dr. Benito Schwartz PHOSPHORUSon 09-09-2022 Phosphate [Mass/Vol] 3.2 mg/dL Normal 2.6-4.7 [facility] Comment on above: Performed By: #### B 12FOL, FETIBC #### [facility] [address] [place] [address] Dr. Benito Schwartz PROF CHEM 8 (BAS METB)on Anion gap [Moles/Vol] 10.1 mmol/L Normal [facility] Comment on above: Performed By: #### B 12FOL, FETIBC #### [facility] [address] [place] [address] Dr. Benito Schwartz Calcium [Mass/Vol] 9.3 mg/dL Normal 8.5-10.1 [facility] Comment on above: Performed By: #### B 12FOL, FETIBC #### [facility] [address] [place] [address] Dr. Benito Schwartz Chloride [Moles/Vol] 99 mmol/L Normal 98-107 [facility] Comment on above: Performed By: #### B 12FOL, FETIBC #### [facility] [address] [place] [address] Dr. Benito Schwartz CO2 [Moles/Vol] 32.4 mmol/L Critically high 21.0-32.0 [facility] Comment on above: Performed By: #### B 12FOL, FETIBC #### [facility] [address] [place] [address] Dr. Benito Schwartz Creatinine [Mass/Vol] 2.77 mg/dL Critically high 0.70-1.30 [facility] Comment on above: Performed By: #### B 12FOL, FETIBC #### [facility] [address] [place] [address] Dr. Benito Schwartz EGFR-AF DOMINICAN 27 mL/min/1.73m2 Critically low >=60 [facility] Comment on above: Performed By: #### B 12FOL, FETIBC #### [facility] [address] [address] [address] Benito Schwartz EGFR-NON AF DOMINICAN 22 mL/min/1.73m2 Critically low >=60 [facility] Comment on above: Performed By: #### B 12FOL, FETIBC #### [facility] [address] [address] [address] Benito Schwartz Glucose [Mass/Vol] 166 mg/dL Critically high 74-106 [facility] Comment on above: Performed By: #### B 12FOL, FETIBC #### [facility] [address] [place] [address] Dr. Benito Schwartz Potassium [Moles/Vol] 3.5 mmol/L Normal 3.5-5.1 [facility] Comment on above: Performed By: #### B 12FOL, FETIBC #### [facility] [address] [address] [address] Benito Schwartz Sodium [Moles/Vol] 138 mmol/L Normal 136-145 [facility] Comment on above: Performed By: #### B 12FOL, FETIBC #### [facility] [address] [place] [address] Dr. Benito Schwartz Urea nitrogen [Mass/Vol] 50.0 mg/dL Critically high 7.0-18 .0 [facility] Comment on above: Performed By: #### B 12FOL, FETIBC #### [facility] [address] [place] [address] Dr. Benito Schwartz Urea nitrogen/Creatinine [Mass ratio] 18.1 mg/mg Normal [facility] Comment on above: Performed By: #### B 12FOL, FETIBC #### [facility] [address] [address] [address] Benito Schwartz UA RANDOMon 09-09-2022 Bilirubin Ql (U) Negative Normal NEGATIVE [facility] Comment on above: Performed By: #### V ITAD #### [facility] [address] [place] [address] Dr. Benito Schwartz Clarity (U) CLEAR Normal CLEAR [facility] Comment on above: Performed By: #### V ITAD #### [facility] [address] [place] [address] Dr. Benito Schwartz Color (U) LT. YELLOW Normal YELLOW [facility] Comment on above: Performed By: #### V ITAD #### [facility] [address] [place] [address] Dr. Benito Schwartz Glucose Ql (U) Negative Normal NEGATIVE [facility] Comment on above: Performed By: #### V ITAD #### [facility] [address] [place] [address] Dr. Benito Schwartz Hemoglobin Ql (U) Negative Normal NEGATIVE [facility] Comment on above: Performed By: #### V ITAD #### [facility] [address] [place] [address] Dr. Benito Schwartz Ketones Ql (U) Negative Normal NEGATIVE [facility] Comment on above: Performed By: #### V ITAD #### [facility] [address] [place] [address] Dr. Benito Schwartz LEUKOCYTES Negative Normal NEGATIVE [facility] Comment on above: Performed By: #### V ITAD #### [facility] [address] [place] [address] Dr. Benito Schwartz Nitrite Ql (U) Negative Normal NEGATIVE [facility] Comment on above: Performed By: #### V ITAD #### [facility] [address] [place] [address] Dr. Benito Schwartz pH (U) 5.5 [pH] Normal 5-9 [facility] Comment on above: Performed By: #### V ITAD #### [facility] [address] [place] [address] Dr. Benito Schwartz SPEC GRAVITY 1.010 Normal 1.005-<=1.0 25 [facility] Comment on above: Performed By: #### V ITAD #### [facility] [address] [address] [address] Benito Schwartz UA PROTEIN Negative Normal NEGATIVE/ TRACE [facility] Comment on above: Performed By: #### V ITAD #### [facility] [address] [place] [address] Dr. Benito Schwartz Urobilinogen Qn (U) 0.2 {Jagruti'U}/dL Normal 0.2 - 1. 0 [facility] Comment on above: Performed By: #### V ITAD #### [facility] [address] [place] [address] Dr. Benito Schwartz URINE T PROTEIN CREAT RATIOo n 09-09-2022 Protein (U) [Mass/Vol] 16.4 mg/dL Critically high <=12.0 [facility] Comment on above: Performed By: #### T SH, FT3, BMP #### [facility] [address] [place] [address] Dr. Benito Schwartz UR PROT CREAT RAT 0.79 Normal [facility] Comment on above: Performed By: #### T SH, FT3, BMP #### [facility] [address] [place] [address] Dr. Benito Schwartz URINE CREAT 20.88 mg/dL Normal 20.00-300.0 0 [facility] Comment on above: Performed By: #### T SH, FT3, BMP #### [facility] [address] [place] [address] Dr. Benito Schwartz VITAMIN D 25 OHon 09-09-2022 VIT D 25-OH 83.7 ng/mL Normal [facility] Comment on above: Performed By: #### V ITAD #### [facility] [address] [place] [address] Dr. Benito Schwartz VIT D RANGES SEE BELOW Normal [facility] Comment on above: Result Comment: <20 ng/mL Vit D deficient 20 - <30 ng/mL Vit D insufficient 30 - 100 ng/mL Vit D sufficient >100 ng/mL Potential Toxicity Performed By: #### V ITAD #### [facility] [address] [place] [address] Dr. Benito Schwartz Albumin [Mass/volume] in Ser um or PlasmaOrdered By: Leigha Nelson on 08-31-2022 Albumin [Mass/Vol] 3.9 g/dL 3.2-5.5 [facility] Basophils Auto (Bld) [#/Vol] Ordered By: Leigha Nelson on 08-31-2022 Basophils (Bld) [#/Vol] 0.0 10*3/uL 0.0-0.2 [facility] Basophils/100 WBC Auto (Bld) Ordered By: Leigha Nelson on 08-31-2022 Basophils/100 WBC (Bld) 0.5 % . [facility] Creatinine and Glomerular fi ltration rate.predicted panel (S/P/Bld)Ordered By: Leigha Nelson on 08-31-2022 Creatinine [Mass/Vol] 2.63 mg/dL 0.64-1.27 [facility] Eosinophils Auto (Bld) [#/Vo l]Ordered By: Leigha Nelson on 08-31-2022 Eosinophils (Bld) [#/Vol] 0.3 10*3/uL 0.0-0.45 [facility] Eosinophils/100 WBC Auto (Bl d)Ordered By: Leigha Nelson on 08-31-2022 Eosinophils/100 WBC (Bld) 4.3 % . [facility] Erythrocyte distribution wid th Auto (RBC) [Ratio]Ordered By: Leigha Nelson on 08-31-2022 Erythrocyte distribution width (RBC) [Ratio] 15.7 % 12.0-14.8 [facility] Estimated glomerular filtrat ion rate (GFR) non- AmericanOrdered By: Leigha Nelson on 08-31-2022 GFR/1.73 sq M.predicted among non-blacks MDRD (S/P/Bld) [Vol rate/Area] 24 mL/Min [facility] GFR/1.73 sq M.predicted among non-blacks MDRD (S/P/Bld) [Vol rate/Area] Estimated glomerular filtration rate (GFR) non- [facility] Globulin Calc (S) [Mass/Vol] Ordered By: Leigha Nelson on 08-31-2022 Globulin (S) [Mass/Vol] 2.8 g/dL [facility] Hematocrit Auto (Bld) [Volum e fraction]Ordered By: Leigha Nelson on 08-31-2022 Hematocrit (Bld) [Volume fraction] 37.2 % 38.8-50.0 [facility] Hemoglobin [Mass/volume] in BloodOrdered By: Leigha Nelson on 08-31-2022 Hemoglobin (Bld) [Mass/Vol] 12.4 g/dL 13.0-17.0 [facility] - Hematology and Cell countsOrdered By: Leigha Nelson on 08-31-2022 Nucleated RBC/100 WBC (Bld) [Ratio] 0.1 % 0-0.5 [facility] Leukocytes [#/volume] in Blo od by Automated countOrdered By: Leigha Nelson on 08-31-2022 WBC (Bld) [#/Vol] 6.7 10*3/uL 4.5-11.0 [facility] Lymphocytes Auto (Bld) [#/Vo l]Ordered By: Leigha Nelson on 08-31-2022 Lymphocytes (Bld) [#/Vol] 1.2 10*3/uL 1.00-4.8 [facility] Lymphocytes/100 WBC Auto (Bl d)Ordered By: Leigha Nelson on 08-31-2022 Lymphocytes/100 WBC (Bld) 18.5 % . [facility] MCH Auto (RBC) [Entitic mass ]Ordered By: Leigha Nelson on 08-31-2022 MCH (RBC) [Entitic mass] 31.0 pg 27.5-35.2 [facility] MCHC Auto (RBC) [Mass/Vol]Or dered By: Leigha Nelson on 08-31-2022 MCHC (RBC) [Mass/Vol] 33.4 g/dL 32.5-35.6 [facility] MCV Auto (RBC) [Entitic vol] Ordered By: Leigha Nelson on 08-31-2022 MCV (RBC) [Entitic vol] 92.9 fL 83.5-[address] [facility] Monocytes Auto (Bld) [#/Vol] Ordered By: Leigha Nelson on 08-31-2022 Monocytes (Bld) [#/Vol] 0.6 10*3/uL 0.0-0.8 [facility] Monocytes/100 WBC Auto (Bld) Ordered By: Leigha Omar on 08-31-2022 Monocytes/100 WBC (Bld) 8.4 % . [facility] Neutrophils Auto (Bld) [#/Vo l]Ordered By: Leigha Omar on 08-31-2022 Neutrophils (Bld) [#/Vol] 4.6 10*3/uL 1.8-7.7 [facility] Neutrophils/100 WBC Auto (Bl d)Ordered By: Leigha Nelson on 08-31-2022 Neutrophils/100 WBC (Bld) 68.3 % . [facility] No Panel InformationOrdered By: Leigha Omar on 08-31-2022 Estimated GFR () 29 mL/Min [facility] Comment on above: GFR estimated refere nce range: According to KDOQI guidelines, <60 ml/min/1.73m2 is sufficient to diagnose a patient with chronic kidney disease. Pharmacy Creatinine Clearance (Chem 26.08 [facility] 0.1 % 0-0.5 [facility] 29 mL/Min [facility] Platelet mean volume Auto (B ld) [Entitic vol]Ordered By: Leigha Omar on 08-31-2022 Platelet mean volume (Bld) [Entitic vol] 6.8 fL 6.6-10.1 [facility] Platelets Auto (Bld) [#/Vol] Ordered By: Leigha Nelson on 08-31-2022 Platelets (Bld) [#/Vol] 238 10*3/uL 150-450 [facility] Protein [Mass/volume] in Ser um or PlasmaOrdered By: Leigha Nelson on 08-31-2022 Protein [Mass/Vol] 6.7 g/dL 6.1-7.9 [facility] RBC Auto (Bld) [#/Vol]Ordere d By: Leigha Nelson on 08-31-2022 RBC (Bld) [#/Vol] 4.00 10*6/uL 3.90-5.60 [facility] Serum or plasma alanine paige otransferase measurement without P-5'-P (enzymatic activiOrdered By: Leigha Omar on 08-31-2022 ALT No additional P-5'-P [Catalytic activity/Vol] 26 U/L 10-60 [facility] Serum or plasma albumin/glob ulin mass ratioOrdered By: Leigha Omar on 08-31-2022 Albumin/Globulin [Mass ratio] 1.4 {ratio} [facility] Serum or plasma alkaline mega sphatase measurement (enzymatic activity/volume)Ordered By: Leigha Nelson on 08-31-2022 ALP [Catalytic activity/Vol] 112 U/L 32-92 [facility] Serum or plasma anion gap de terminationOrdered By: Leigha Nelson on 08-31-2022 Anion gap [Moles/Vol] 9.4 mmol/L 6.0-15.0 [facility] Serum or plasma aspartate am inotransferase measurement (enzymatic activity/volume)Ordered By: Leigha Nelson on 08-31-2022 AST [Catalytic activity/Vol] 32 U/L 10-42 [facility] Serum or plasma calcium darshan urement (mass/volume)Ordered By: Leigha Nelson on 08-31-2022 Calcium [Mass/Vol] 8.9 mg/dL 8.2-10.2 [facility] Serum or plasma carcinoembry onic antigen measurement (mass/volume)Ordered By: Leigha Omar on 08-31-2022 Carcinoembryonic Ag [Mass/Vol] 2.5 ng/mL 0.0-3.0 [facility] Serum or plasma chloride ernestine surement (moles/volume)Ordered By: Leigha Nelson on 08-31-2022 Chloride [Moles/Vol] 98 mmol/L 95-114 [facility] Serum or plasma glucose darshan urement (mass/volume)Ordered By: Leigha Nelson on 08-31-2022 Glucose [Mass/Vol] 104 mg/dL 70-100 [facility] Comment on above: ADA recommended refe rence rangeRandom Glucose Reference Range is dependent on time and content of last meal. Glucose of more than 200 mg/dL in a nonstressed, ambulatory subject supports the diagnosis of Diabetes Mellitus. Serum or plasma potassium me asurement (moles/volume)Ordered By: Leigha Omar on 08-31-2022 Potassium [Moles/Vol] 3.4 mmol/L 3.5-5.1 [facility] Serum or plasma sodium measu rement (moles/volume)Ordered By: Leigha Talamantesrenée on 08-31-2022 Sodium [Moles/Vol] 135 mmol/L 136-146 [facility] Serum or plasma total biliru bin measurement (mass/volume)Ordered By: Leigha Talamantesrenée on 08-31-2022 Bilirubin [Mass/Vol] 0.8 mg/dL 0.3-1.2 [facility] Serum or plasma total carbon dioxide measurement (moles/volume)Ordered By: Leigha Talamantesrenée on 08-31-2022 CO2 [Moles/Vol] 31.0 mmol/L 22.0-30.0 [facility] Serum or plasma urea nitroge n measurement (mass/volume)Ordered By: Leigha Talamantesrenée on 08-31-2022 Urea nitrogen [Mass/Vol] 40 mg/dL 9- [facility] T3, TOTAL (TRIIODOTHYRONINE) on 08-31-2022 T3, TOTAL 42 ng/dL Critically low 71-180 [facility] Comment on above: Performed By: #### F T4, PSASC #### [facility] [address] [address] [address] Benito Schwartz FREE T4on 08-30-2022 Free T4 [Mass/Vol] 0.11 ng/dL Critically low 0.76-1.46 [facility] Comment on above: Performed By: #### V ITAD #### [facility] [address] [address] [address] Benito Schwartz TSHon 08-30-2022 TSH 121.477 uIU/mL Critically high 0.358-3.740 [facility] Comment on above: Performed By: #### F T4 #### [facility] [address] [address] [address] Benito Schwartz Glucose Glucometer (BldC) [M ass/Vol]Ordered By: Ramesh Rascon on 07-21-2022 Glucose [Mass/Vol] 105 mg/dL [facility] Comment on above: Random Glucose Refer ence Range is dependent on time and content of last meal. Glucose of more than 200 mg/dL in a nonstressed, ambulatory subject supports the diagnosis of Diabetes Mellitus. T3, TOTAL (TRIIODOTHYRONINE) on 07-21-2022 T3, TOTAL 56 ng/dL Critically low 71-180 [facility] Comment on above: Performed By: #### F T4, PSASC #### [facility] [address] [address] [address] Benito Schwartz FREE T4on 07-20-2022 Free T4 [Mass/Vol] 0.48 ng/dL Critically low 0.76-1.46 [facility] Comment on above: Performed By: #### V ITAD #### [facility] [address] [place] [address] Dr. Benito Schwartz TSHon 07-20-2022 TSH 67.173 uIU/mL Critically high 0.358-3.740 [facility] Comment on above: Performed By: #### U RTPCR #### [facility] [address] [address] [address] Benito Schwartz COVID-19 SOFIAOrdered By: Lucia Rascon on 07-19-2022 SARS-CoV+SARS-CoV-2 (COVID-19) Ag IA.rapid Ql (Resp) Negative Negative [facility] Comment on above: This is a duplicate Lindsay SARS Antigen (MADHU) result to be used for statistical tracking purpose only. No Panel InformationOrdered By: Ramesh Rascon on 07-19-2022 SARS Antigen (LFIA) [facility] Albumin [Mass/volume] in Ser um or PlasmaOrdered By: Chivo Keller on 05-31-2022 Albumin [Mass/Vol] 3.9 g/dL 3.2-5.5 [facility] Basophils Auto (Bld) [#/Vol] Ordered By: Chivo Keller on 05-31-2022 Basophils (Bld) [#/Vol] 0.1 10*3/uL 0.0-0.2 [facility] Basophils/100 WBC Auto (Bld) Ordered By: Chivo Keller on 05-31-2022 Basophils/100 WBC (Bld) 0.8 % . [facility] Blood hemoglobin measurement (mass/volume)Ordered By: Chivo Keller on 05-31-2022 Hemoglobin (Bld) [Mass/Vol] 11.1 g/dL 13.0-17.0 [facility] Blood leukocytes automated c ount (number/volume)Ordered By: Chivo Keller on 05-31-2022 WBC (Bld) [#/Vol] 8.8 10*3/uL 4.5-11.[address] [facility] [address] biopsyOrdered By: Danuta Kelly on 05-31-2022 Transferrin [Mass/Vol] 210 mg/dL 180-380 [facility] Creatinine (Bld) [Mass/Vol]O rdered By: Nikunj Shultz on 05-31-2022 Creatinine [Mass/Vol] 2.4 mg/dL High 0.6-1.3 [facility] Comment on above: ER/ESD physician is notified/shown all ISTAT results. Critical values may be confirmed by laboratory testing if deemed necessary by ER attending doctor. ER/ESD physician is notified/shown all ISTAT results.Critical values may be confirmed by laboratory testing ifdeemed necessary by ER attending doctor. Creatinine [Mass/Vol] Whole blood creatinine measurement High 0.6-1.3 [facility] Creatinine and Glomerular fi ltration rate.predicted panel (S/P/Bld)Ordered By: Chivo Keller on 05-31-2022 Creatinine [Mass/Vol] 2.23 mg/dL 0.64-1.27 [facility] Eosinophils Auto (Bld) [#/Vo l]Ordered By: Chivo Keller on 05-31-2022 Eosinophils (Bld) [#/Vol] 0.4 10*3/uL 0.0-0.45 [facility] Eosinophils/100 WBC Auto (Bl d)Ordered By: Chvio Keller on 05-31-2022 Eosinophils/100 WBC (Bld) 4.1 % . [facility] Erythrocyte distribution wid th Auto (RBC) [Ratio]Ordered By: Chivo Keller on 05-31-2022 Erythrocyte distribution width (RBC) [Ratio] 16.4 % 12.0-14.8 [facility] Estimated glomerular filtrat ion rate (GFR) non- AmericanOrdered By: Chivo Keller on 05-31-2022 GFR/1.73 sq M.predicted among non-blacks MDRD (S/P/Bld) [Vol rate/Area] 28 mL/Min [facility] Ferritin [Mass/volume] in Se rum or PlasmaOrdered By: Danuta Kelly on 05-31-2022 Ferritin [Mass/Vol] 96.9 ng/mL 23.9-336.2 [facility] Folate [Mass/volume] in Seru m or PlasmaOrdered By: Danuta Kelly on 05-31-2022 Folate [Mass/Vol] 17.7 ng/mL >5.9 [facility] Comment on above: Folate reference ran ge: >5.9 ng/ml The WHO technical consultation on folate and vitamin b12 deficiencies has determined that folate concentrations less than 4 ng/ml are considered deficient. Folate reference ran ge: >5.9 ng/mlThe WHO technical consultation on folate and vitamin [id number] has determined that folate concentrations lessthan 4 ng/ml are considered deficient. Globulin Calc (S) [Mass/Vol] Ordered By: Chivo Keller on 05-31-2022 Globulin (S) [Mass/Vol] 3.4 g/dL [facility] Hematocrit Auto (Bld) [Volum e fraction]Ordered By: Chivo Keller on 05-31-2022 Hematocrit (Bld) [Volume fraction] 33.6 % 38.8-50.0 [facility] Iron [Mass/volume] in Serum or PlasmaOrdered By: Danuta Kelly on 05-31-2022 Iron [Mass/Vol] 42 ug/dL 40-160 [facility] Iron binding capacity [Mass/ volume] in Serum or PlasmaOrdered By: Danuta Kelly on 05-31-2022 Iron binding capacity [Mass/Vol] 294 ug/dL 255-450 [facility] Iron saturation [Mass Fracti on] in Serum or PlasmaOrdered By: Danuta Kelly on 05-31-2022 Iron saturation [Mass fraction] 14.0 % 20-50 [facility] - Chemistry and C hemistry - challengeOrdered By: Danuta eKlly on 05-31-2022 Cobalamin (Vitamin B12) [Mass/Vol] 463 pg/mL 180-914 [facility] - Hematology and Cell countsOrdered By: Chivo Keller on 05-31-2022 Nucleated RBC/100 WBC (Bld) [Ratio] 0.0 % 0-0.5 [facility] Lymphocytes Auto (Bld) [#/Vo l]Ordered By: Chivo Keller on 05-31-2022 Lymphocytes (Bld) [#/Vol] 1.5 10*3/uL 1.00-4.8 [facility] Lymphocytes/100 WBC Auto (Bl d)Ordered By: Chivo Keller on 05-31-2022 Lymphocytes/100 WBC (Bld) 17.2 % . [facility] MCH Auto (RBC) [Entitic mass ]Ordered By: Chivo Keller on 05-31-2022 MCH (RBC) [Entitic mass] 29.2 pg 27.5-35.2 [facility] MCHC Auto (RBC) [Mass/Vol]Or dered By: Chivo Keller on 05-31-2022 MCHC (RBC) [Mass/Vol] 33.1 g/dL 32.5-35.6 [facility] MCV Auto (RBC) [Entitic vol] Ordered By: Chivo Keller on 05-31-2022 MCV (RBC) [Entitic vol] 88.2 fL 83.5-[address] [facility] Monocytes Auto (Bld) [#/Vol] Ordered By: Chivo Keller on 05-31-2022 Monocytes (Bld) [#/Vol] 0.7 10*3/uL 0.0-0.8 [facility] Monocytes/100 WBC Auto (Bld) Ordered By: Chivo Keller on 05-31-2022 Monocytes/100 WBC (Bld) 8.0 % . [facility] Neutrophils Auto (Bld) [#/Vo l]Ordered By: Chivo Keller on 05-31-2022 Neutrophils (Bld) [#/Vol] 6.2 10*3/uL 1.8-7.7 [facility] Neutrophils/100 WBC Auto (Bl d)Ordered By: Chivo Keller on 05-31-2022 Neutrophils/100 WBC (Bld) 69.9 % . [facility] No Panel InformationOrdered By: Nikunj Shultz on 05-31-2022 POC Estimated GFR 32 [facility] Comment on above: GFR estimated refere nce range: According to KDOQI guidelines, <60 ml/min/1.73m2 is sufficient to diagnose a patient with chronic kidney disease. POC Estimated GFR Non- Amer 26 [facility] [address] No Panel InformationOrdered By: Chivo Keller on 05-31-2022 Estimated GFR () 34 mL/Min [facility] Comment on above: GFR estimated refere nce range: According to KDOQI guidelines, <60 ml/min/1.73m2 is sufficient to diagnose a patient with chronic kidney disease. Pharmacy Creatinine Clearance (Chem 31.14 [facility] Platelet mean volume Auto (B ld) [Entitic vol]Ordered By: Chivo Keller on 05-31-2022 Platelet mean volume (Bld) [Entitic vol] 7.0 fL 6.6-10.1 [facility] Platelets Auto (Bld) [#/Vol] Ordered By: Chivo Keller on 05-31-2022 Platelets (Bld) [#/Vol] 308 10*3/uL 150-450 [facility] Protein [Mass/volume] in Ser um or PlasmaOrdered By: Chivo Keller on 05-31-2022 Protein [Mass/Vol] 7.3 g/dL 6.1-7.9 [facility] RBC Auto (Bld) [#/Vol]Ordere d By: Chivo Keller on 05-31-2022 RBC (Bld) [#/Vol] 3.81 10*6/uL 3.90-5.60 [facility] Serum or plasma alanine paige otransferase measurement without P-5'-P (enzymatic activiOrdered By: Chivo Keller on 05-31-2022 ALT No additional P-5'-P [Catalytic activity/Vol] 17 U/L 10-60 [facility] Serum or plasma albumin/glob ulin mass ratioOrdered By: Chivo Keller on 05-31-2022 Albumin/Globulin [Mass ratio] 1.1 {ratio} [facility] Serum or plasma alkaline mega sphatase measurement (enzymatic activity/volume)Ordered By: Chivo Keller on 05-31-2022 ALP [Catalytic activity/Vol] 140 U/L 32-92 [facility] Serum or plasma aspartate am inotransferase measurement (enzymatic activity/volume)Ordered By: Chivo Keller on 05-31-2022 AST [Catalytic activity/Vol] 22 U/L 10-42 [facility] Serum or plasma calcium darshan urement (mass/volume)Ordered By: Chivo Keller on 05-31-2022 Calcium [Mass/Vol] 9.5 mg/dL 8.2-10.2 [facility] Serum or plasma carcinoembry onic antigen measurement (mass/volume)Ordered By: Chivo Keller on 05-31-2022 Carcinoembryonic Ag [Mass/Vol] 1.8 ng/mL 0.0-3.0 [facility] Serum or plasma chloride ernestine surement (moles/volume)Ordered By: Chivo Keller on 05-31-2022 Chloride [Moles/Vol] 101 mmol/L 95-114 [facility] Serum or plasma glucose darshan urement (mass/volume)Ordered By: Chivo Keller on 05-31-2022 Glucose [Mass/Vol] 108 mg/dL 70-100 [facility] Comment on above: ADA recommended refe [...] on 05-31-2022 Potassium [Moles/Vol] 4.4 mmol/L 3.5-5.1 [facility] Serum or plasma sodium measu rement (moles/volume)Ordered By: Chivo Keller on 05-31-2022 Sodium [Moles/Vol] 140 mmol/L 136-146 [facility] Serum or plasma total biliru bin measurement (mass/volume)Ordered By: Chivo Keller on 05-31-2022 Bilirubin [Mass/Vol] 0.5 mg/dL 0.3-1.2 [facility] Serum or plasma total carbon dioxide measurement (moles/volume)Ordered By: Chivo Keller on 05-31-2022 CO2 [Moles/Vol] 29.7 mmol/L 22.0-30.0 [facility] Serum or plasma urea nitroge n measurement (mass/volume)Ordered By: Chivo Keller on 05-31-2022 Urea nitrogen [Mass/Vol] 42 mg/dL 9-23 [facility] CBC W/DIFFon 05-26-2022 ABS IMM GRANS 0.1 10*3/uL Normal 0.0-0.2 [facility] Comment on above: Performed By: #### 5 0103 #### [facility] [address] ABS NEUTROPHILS 6.4 10*3/uL Normal 1.6-7.6 [facility] Comment on above: Performed By: #### 5 0103 #### [facility] [address] [place] [address], [facility] Basophils (Bld) [#/Vol] 0.0 10*3/uL Normal 0.0-0.2 [facility] Comment on above: Performed By: #### 5 0103 #### [facility] [address] [place] [address], [facility] Basophils/100 WBC (Bld) 0.4 % Normal 0.0-1.[address] [facility] Comment on above: Performed By: #### 5 0103 #### [facility] [address] [facility] [place] [address], [facility] Eosinophils (Bld) [#/Vol] 0.4 10*3/uL Normal 0.0-0.5 [facility] Comment on above: Performed By: #### 5 0103 #### [facility] [address] [facility] [place] [address], [facility] Eosinophils/100 WBC (Bld) 4.3 % Normal 0.0-6.0 [facility] Comment on above: Performed By: #### 5 0103 #### [facility] [address] Erythrocyte distribution width (RBC) [Ratio] 15.9 % High 11.5-15.0 [facility] Comment on above: Performed By: #### 5 0103 #### [facility] [address] [facility]. [address] Hematocrit (Bld) [Volume fraction] 31.6 % Low 39.0-50.0 [facility] Comment on above: Performed By: #### 5 0103 #### [facility] [address] [facility] [address] Hemoglobin (Bld) [Mass/Vol] 10.0 g/dL Low 13.0-17.0 [facility] Comment on above: Performed By: #### 5 0103 #### [facility] [address] IMMATURE GRANS 0.8 % Normal 0.0-1.0 [facility] Comment on above: Performed By: #### 5 3 #### [facility] [address] [facility] [place] [place] [address], [facility] Lymphocytes (Bld) [#/Vol] 1.6 10*3/uL Normal 1.2-4.0 [facility] Comment on above: Performed By: #### 5 0103 #### [facility] [address] [place] [address], [facility] Lymphocytes/100 WBC (Bld) 16.8 % Low 20.0-45.0 [facility] Comment on above: Performed By: #### 5 0103 #### [facility] [address] [place] [address], [facility] MCH (RBC) [Entitic mass] 28.7 pg Normal 27.0-33.0 [facility] Comment on above: Performed By: #### 5 0103 #### [facility] [address] [facility] [place] [place] [address], [facility] MCHC (RBC) [Mass/Vol] 31.6 g/dL Low 32.0-35.0 [facility] Comment on above: Performed By: #### 5 3 #### [facility] [address] [facility] [place] [place] [address], [facility] MCV (RBC) [Entitic vol] 90.5 fL Normal 82.0-98.0 [facility] Comment on above: Performed By: #### 5 3 #### [facility] [address] [facility] [place] [place] [address], [facility] Monocytes (Bld) [#/Vol] 0.8 10*3/uL Normal 0.1-1.0 [facility] Comment on above: Performed By: #### 5 0103 #### [facility] [address] [facility] [place] [address], [facility] MONOS 9.0 % Normal 5.0-12.0 [facility] Comment on above: Performed By: #### 5 3 #### [facility] [address] [place] [address], [facility] Neutrophils/100 WBC (Bld) 68.7 % Normal 40.0-72.0 [facility] Comment on above: Performed By: #### 5 3 #### [facility] [address] [place] [address], [facility] Nucleated RBC/100 WBC (Bld) [Ratio] 0 % Normal 0-0 [facility] Comment on above: Performed By: #### 5 0103 #### [facility] [address] [facility] [place] [address], [facility] PLAT CNT 292 10*3/uL Normal 150-400 [facility] Comment on above: Performed By: #### 5 0103 #### [facility] [address] [place] [address], [facility] RBC (Bld) [#/Vol] 3.49 10*6/uL Low 4.20-5.70 [facility] Comment on above: Performed By: #### 5 0103 #### [facility] [address] [place] [address], [facility] WBC (Bld) [#/Vol] 9.29 10*3/uL Normal 4.00-10.60 [facility] Comment on above: Performed By: #### 5 0103 #### [facility] [address] [place] [address], [facility] IMMUNOGLOBULIN [place] 2 [place] Normal [facility] Comment on above: Result Comment: Test Performed by [employer] [address] [place] [address] - Released 05/27/2022 12:45 IMMUNOGLOBULIN E 308 IU/mL High <101 [facility] THYROID-STIMULATING IMMUNOGL OBULINon 05-14-2022 Thyroid Sim Immunoglobulin <0.10 Normal 0.00-0.55 [facility] Comment on above: Performed By: #### C BC #### [facility] [address] [address] [address] Benito Schwartz THYROTROPIN RECEPTOR ABon Thyrotropin Receptor Ab, Serum <1.10 Normal 0.00-1.75 [facility] Comment on above: Performed By: #### C BC #### [facility] [address] [address] [address] Benito Schwartz PTH INTACTon 05-13-2022 PTH, Intact 18 pg/mL Normal 15-65 [facility] Comment on above: Performed By: #### C BC #### [facility] [address] [address] [address] Benito Schwartz T3, TOTAL (TRIIODOTHYRONINE) on 05-13-2022 T3, TOTAL 80 ng/dL Normal 71-180 [facility] Comment on above: Performed By: #### U RTPCR #### [facility] [address] [address] [address] Benito Schwartz VIT D 25-OH LABCORPon 2021 Vitamin D, 25-Hydroxy 84.3 ng/mL Normal 30.0-100.0 [facility] Comment on above: Result Comment: Randi min D deficiency has been defined by the [place] of [employer] and an Endocrine Society practice guideline as a level of serum 25-OH vitamin D less than 20 ng/mL (1,2). The Endocrine Society went on to further define vitamin D insufficiency as a level between 21 and 29 ng/mL (2). 1. IOM ([place] of Medicine). 2010. Dietary reference intakes for calcium and D. [place]: The National Academies Press. 2. Annamarie OVALLE, [place], Jamin BURGESS, et al. Evaluation, treatment, and prevention of vitamin D deficiency: an Endocrine Society clinical practice guideline. JCEM. 2010; 96(7):1911-30. Performed By: #### U RTPCR #### [facility] [address] [place] [address] Dr. Benito Schwartz CBC AUTO DIFFon 05-12-2022 BASO # 0.0 103/ul Normal 0.0-0.1 [facility] Comment on above: Performed By: #### C BC #### [facility] [address] [address] [address] Benito Schwartz Basophils/100 WBC (Bld) 0.2 % Normal 0.2-2.0 [facility] Comment on above: Performed By: #### C BC #### [facility] [address] [place] [address] Dr. Benito Schwartz EO # 0.4 103/ul Normal 0.0-0.7 [facility] Comment on above: Performed By: #### C BC #### [facility] [address] [place] [address] Dr. Benito Schwartz Eosinophils/100 WBC (Bld) 4.4 % Normal 0.9-7.0 [facility] Comment on above: Performed By: #### C BC #### [facility] [address] [place] [address] Dr. Benito Schwartz Erythrocyte distribution width (RBC) [Ratio] 15.0 % Normal 11.0-15.0 [facility] Comment on above: Performed By: #### C BC #### [facility] [address] [place] [address] Dr. Benito Schwartz Hematocrit (Bld) [Volume fraction] 29.8 % Critically low 42.0-54.0 [facility] Comment on above: Performed By: #### C BC #### [facility] [address] [place] [address] Dr. Benito Schwartz Hemoglobin (Bld) [Mass/Vol] 9.7 g/dL Critically low 14.0-18.0 [facility] Comment on above: Performed By: #### C BC #### [facility] [address] [place] [address] Dr. Benito Schwartz IG # 0.06 10e3/ul Critically high 0.00-0.03 [facility] Comment on above: Performed By: #### C BC #### [facility] [address] [place] [address] Dr. Benito Schwartz IG % 0.7 % Critically high 0.0-0.5 [facility] Comment on above: Performed By: #### C BC #### [facility] [address] [place] [address] Dr. Benito Schwartz LYMPH # 1.9 103/ul Normal 1.2-3.8 [facility] Comment on above: Performed By: #### C BC #### [facility] [address] [address] [address] Benito Schwartz Lymphocytes/100 WBC (Bld) 21.1 % Normal 20.5-60.0 [facility] Comment on above: Performed By: #### C BC #### [facility] [address] [place] [address] Dr. Benito Schwartz MANUAL DIFF REQ NO Normal [facility] Comment on above: Performed By: #### C BC #### [facility] [address] [place] [address] Dr. Benito Schwartz MCH (RBC) [Entitic mass] 29.0 pg Normal 25.9-34.0 [facility] Comment on above: Performed By: #### C BC #### [facility] [address] [place] [address] Dr. Benito Schwartz MCHC (RBC) [Mass/Vol] 32.6 g/dL Normal 29.9-35.2 [facility] Comment on above: Performed By: #### C BC #### [facility] [address] [place] [address] Dr. Benito Schwartz MCV (RBC) [Entitic vol] 89.0 fL Normal 80.0-94.0 [facility] Comment on above: Performed By: #### C BC #### [facility] [address] [place] [address] Dr. Benito Schwartz MONO # 0.9 103/ul Critically high 0.3-0.8 [facility] Comment on above: Performed By: #### C BC #### [facility] [address] [place] [address] Dr. Benito Schwartz Monocytes/100 WBC (Bld) 9.9 % Normal 1.7-12.0 [facility] Comment on above: Performed By: #### C BC #### [facility] [address] [place] [address] Dr. Benito Schwartz NEUT # 5.8 103/ul Normal 1.4-6.5 [facility] Comment on above: Performed By: #### C BC #### [facility] [address] [address] [address] Benito Schwartz Neutrophils/100 WBC (Bld) 63.7 % Normal 43.0-75.0 [facility] Comment on above: Performed By: #### C BC #### [facility] [address] [place] [address] Dr. Benito Schwartz Platelet mean volume (Bld) [Entitic vol] 8.7 fL Critically low 9.5-13.5 [facility] Comment on above: Performed By: #### C BC #### [facility] [address] [place] [address] Dr. Benito Schwartz PLT 253 103/ul Normal 150-450 [facility] Comment on above: Performed By: #### C BC #### [facility] [address] [place] [address] Dr. Benito Schwartz RBC 3.35 106/ul Critically low 4.70-6.10 [facility] Comment on above: Performed By: #### C BC #### [facility] [address] [place] [address] Dr. Benito Schwartz WBC 9.1 103/ul Normal 4.0-11.0 [facility] Comment on above: Performed By: #### C BC #### [facility] [address] [place] [address] Dr. Benito Schwartz FREE T4on 05-12-2022 Free T4 [Mass/Vol] 1.25 ng/dL Normal 0.76-1.46 [facility] Comment on above: Performed By: #### V ITAD #### [facility] [address] [place] [address] Dr. Benito Schwartz MAGNESIUMon 05-12-2022 Magnesium [Mass/Vol] 2.1 mg/dL Normal 1.8-2.4 [facility] Comment on above: Performed By: #### F T4 #### [facility] [address] [place] [address] Dr. Benito Schwartz PHOSPHORUSon 05-12-2022 Phosphate [Mass/Vol] 4.2 mg/dL Normal 2.6-4.7 [facility] Comment on above: Performed By: #### F T4 #### [facility] [address] [address] [address] Benito Schwartz PROF CHEM 8 (BAS METB)on Anion gap [Moles/Vol] 13.4 mmol/L Normal [facility] Comment on above: Performed By: #### F T4 #### [facility] [address] [place] [address] Dr. Benito Schwartz Calcium [Mass/Vol] 9.1 mg/dL Normal 8.5-10.1 [facility] Comment on above: Performed By: #### F T4 #### [facility] [address] [place] [address] Dr. Benito Schwartz Chloride [Moles/Vol] 103 mmol/L Normal 98-107 [facility] Comment on above: Performed By: #### F T4 #### [facility] [address] [place] [address] Dr. Benito Schwartz CO2 [Moles/Vol] 28.6 mmol/L Normal 21.0-32.0 [facility] Comment on above: Performed By: #### F T4 #### [facility] [address] [place] [address] Dr. Benito Schwartz Creatinine [Mass/Vol] 2.30 mg/dL Critically high 0.70-1.30 [facility] Comment on above: Performed By: #### F T4 #### [facility] [address] [place] [address] Dr. Benito Schwartz EGFR-AF DOMINICAN 33 mL/min/1.73m2 Critically low >=60 [facility] Comment on above: Performed By: #### F T4 #### [facility] [address] [place] [address] Dr. Benito Schwartz EGFR-NON AF DOMINICAN 27 mL/min/1.73m2 Critically low >=60 [facility] Comment on above: Performed By: #### F T4 #### [facility] [address] [place] [address] Dr. Benito Schwartz Glucose [Mass/Vol] 123 mg/dL Critically high 74-106 [facility] Comment on above: Performed By: #### F T4 #### [facility] [address] [address] [address] Benito Schwartz Potassium [Moles/Vol] 4.0 mmol/L Normal 3.5-5.1 [facility] Comment on above: Performed By: #### F T4 #### [facility] [address] [address] [address] Benito Schwartz Sodium [Moles/Vol] 141 mmol/L Normal 136-145 [facility] Comment on above: Performed By: #### F T4 #### [facility] [address] [address] [address] Benito Schwartz Urea nitrogen [Mass/Vol] 51.0 mg/dL Critically high 7.0-18 .0 [facility] Comment on above: Performed By: #### F T4 #### [facility] [address] [place] [address] Dr. Benito Schwartz Urea nitrogen/Creatinine [Mass ratio] 22.2 mg/mg Normal [facility] Comment on above: Performed By: #### F T4 #### [facility] [address] [address] [address] Benito Schwartz TSHon 05-12-2022 TSH Qn m[IU]/L Critically low 0.358-3.740 [facility] Comment on above: Performed By: #### C BC #### [facility] [address] [address] [address] Benito Schwartz UA RANDOMon 05-12-2022 Bilirubin Ql (U) Negative Normal NEGATIVE [facility] Comment on above: Performed By: #### U RTPCR #### [facility] [address] [address] [address] Benito Schwartz Clarity (U) CLEAR Normal CLEAR [facility] Comment on above: Performed By: #### U RTPCR #### [facility] [address] [place] [address] Dr. Benito Schwartz Color (U) LT. YELLOW Normal YELLOW [facility] Comment on above: Performed By: #### U RTPCR #### [facility] [address] [address] [address] Benito Schwartz Glucose Ql (U) Negative Normal NEGATIVE [facility] Comment on above: Performed By: #### U RTPCR #### [facility] [address] [place] [address] Dr. Benito Schwartz Hemoglobin Ql (U) Negative Normal NEGATIVE [facility] Comment on above: Performed By: #### U RTPCR #### [facility] [address] [address] [address] Benito Schwartz Ketones Ql (U) Negative Normal NEGATIVE [facility] Comment on above: Performed By: #### U RTPCR #### [facility] [address] [place] [address] Dr. Benito Schwartz LEUKOCYTES Negative Normal NEGATIVE [facility] Comment on above: Performed By: #### U RTPCR #### [facility] [address] [place] [address] Dr. Benito Schwartz Nitrite Ql (U) Negative Normal NEGATIVE [facility] Comment on above: Performed By: #### U RTPCR #### [facility] [address] [place] [address] Dr. Benito Schwartz pH (U) 5.5 [pH] Normal 5-9 [facility] Comment on above: Performed By: #### U RTPCR #### [facility] [address] [place] [address] Dr. Benito Schwartz SPEC GRAVITY 1.010 Normal 1.005-<=1.[address] [place] [address] Comment on above: Performed By: #### U RTPCR #### [facility] [address] [place] [address] Dr. Benito Schwartz UA PROTEIN Negative Normal NEGATIVE/ TRACE [facility] Comment on above: Performed By: #### U RTPCR #### [facility] [address] [place] [address] Dr. Benito Schwartz Urobilinogen Qn (U) 0.2 {Jagruti'U}/dL Normal 0.2 - 1. 0 [facility] Comment on above: Performed By: #### U RTPCR #### [facility] [address] [place] [address] Dr. Benito Schwartz URINE T PROTEIN CREAT RATIOo n 05-12-2022 Protein (U) [Mass/Vol] 18.3 mg/dL Critically high <=12.0 [facility] Comment on above: Performed By: #### U RTPCR #### [facility] [address] [place] [address] Dr. Benito Schwartz UR PROT CREAT RAT 0.39 Normal [facility] Comment on above: Performed By: #### U RTPCR #### [facility] [address] [place] [address] Dr. Benito Schwartz URINE CREAT 47.44 mg/dL Normal 20.00-300.0 0 [facility] Comment on above: Performed By: #### U RTPCR #### [facility] [address] [place] [address] Dr. Benito Schwartz HEMOGLOBINon 05-10-2022 Hemoglobin (Bld) [Mass/Vol] 9.6 g/dL Critically low 14.0-18.0 [facility] Comment on above: Performed By: #### F T4, PSASC #### [facility] [address] [place] [address] Dr. Benito Schwartz NM THY SCAN W [place] 04-28-20 NM THY SCAN W UPT EXAMINATION: [...] JJ HI Date: 2022-04-28 09:05 Normal [facility] T3, TOTAL (TRIIODOTHYRONINE) on 04-09-2022 T3, TOTAL 167 ng/dL Normal 71-180 [facility] Comment on above: Performed By: #### B 12FOL, FETIBC #### [facility] [address] [address] [address] Benito Schwartz FREE T3on 04-08-2022 FREE T3 6.07 pg/mlL Critically high 2.18-3.98 [facility] Comment on above: Performed By: #### T SH, FT3, BMP #### [facility] [address] [address] [address] Benito Schwartz FREE T4on 04-08-2022 Free T4 [Mass/Vol] 2.62 ng/dL Critically high 0.76-1.46 [facility] Comment on above: Performed By: #### T SH, FT3, BMP #### [facility] [address] [place] [address] Dr. Benito Schwartz PROF CHEM 8 (BAS METB)on Anion gap [Moles/Vol] 13.5 mmol/L Normal [facility] Comment on above: Performed By: #### B 12FOL, FETIBC #### [facility] [address] [address] [address] Benito Schwartz Calcium [Mass/Vol] 9.9 mg/dL Normal 8.5-10.1 [facility] Comment on above: Performed By: #### B 12FOL, FETIBC #### [facility] [address] [address] [address] Benito Schwartz Chloride [Moles/Vol] 105 mmol/L Normal 98-107 [facility] Comment on above: Performed By: #### B 12FOL, FETIBC #### [facility] [address] [address] [address] Benito Schwartz CO2 [Moles/Vol] 26.5 mmol/L Normal 21.0-32.0 [facility] Comment on above: Performed By: #### B 12FOL, FETIBC #### [facility] [address] [address] [address] Benito Schwartz Creatinine [Mass/Vol] 2.33 mg/dL Critically high 0.70-1.30 [facility] Comment on above: Performed By: #### B 12FOL, FETIBC #### [facility] Laboratory [address] [place] [address] Dr. Benito Schwartz EGFR-AF DOMINICAN 33 mL/min/1.73m2 Critically low >=60 [facility] Comment on above: Performed By: #### B 12FOL, FETIBC #### [facility] [address] [address] [address] Benito Schwartz EGFR-NON AF DOMINICAN 27 mL/min/1.73m2 Critically low >=60 [facility] Comment on above: Performed By: #### B 12FOL, FETIBC #### [facility] [address] [place] [address] Dr. Benito Schwartz Glucose [Mass/Vol] 104 mg/dL Normal 74-106 [facility] Comment on above: Performed By: #### B 12FOL, FETIBC #### [facility] [address] [place] [address] Dr. Benito Schwartz Potassium [Moles/Vol] 5.0 mmol/L Normal 3.5-5.1 [facility] Comment on above: Performed By: #### B 12FOL, FETIBC #### [facility] [address] [place] [address] Dr. Benito Schwartz Sodium [Moles/Vol] 140 mmol/L Normal 136-145 [facility] Comment on above: Performed By: #### B 12FOL, FETIBC #### [facility] [address] [place] [address] Dr. Benito Schwartz Urea nitrogen [Mass/Vol] 60.0 mg/dL Critically high 7.0-18 .0 [facility] Comment on above: Performed By: #### B 12FOL, FETIBC #### [facility] [address] [place] [address] Dr. Benito Schwartz Urea nitrogen/Creatinine [Mass ratio] 25.8 mg/mg Normal [facility] Comment on above: Performed By: #### B 12FOL, FETIBC #### [facility] [address] [address] [address] Benito Schwartz TSHon 04-08-2021 TSH Qn m[IU]/L Critically low 0.358-3.740 [facility] Comment on above: Performed By: #### T SH, FT3, BMP #### [facility] [address] [address] [address] Benito Schwartz BASIC METABOLIC PANELon 03-16 Calcium [Mass/Vol] 9.1 mg/dL Normal 8.6-10.3 [facility] Comment on above: Order Comment: No: D o not add to previous draw Performed By: #### 1 0, 52279 #### [facility] [address] [place] [address], [facility] Chloride [Moles/Vol] 106 mmol/L Normal 98-107 [facility] Comment on above: Order Comment: No: D o not add to previous draw Performed By: #### 1 69, 30203 #### [facility] [address] [place] [address], [place] CO2 [Moles/Vol] 25 mmol/L Normal 21-31 [facility] Comment on above: Order Comment: No: D o not add to previous draw Performed By: #### 1 69, 18771 #### [facility] [address] [place] [address], [place] Creatinine [Mass/Vol] 2.12 mg/dL High 0.70-1.30 [facility] Comment on above: Order Comment: No: D o not add to previous draw Performed By: #### 1 0, 27259 #### [facility] [address] [place] [address], [facility] eGFR- 37 ml/min/1.73sq m Abnormal >60 [facility] Comment on above: Order Comment: No: D o not add to previous draw Result Comment: Calc ulation may not be valid for patients over 70 years Performed By: #### 1 69, 10273 #### [facility] [address] [place] [address], [facility] eGFR- non- 30 ml/min/1.73sq m Abnormal >60 [facility] Comment on above: Order Comment: No: D o not add to previous draw Result Comment: Calc ulation may not be valid for patients over 70 years Performed By: #### 1 69, 04245 #### [facility] [address] [place] [address], [place] Glucose [Mass/Vol] 93 mg/dL Normal 70-100 [facility] Comment on above: Order Comment: No: D o not add to previous draw Performed By: #### 1 69, 25371 #### [facility] [address] [place] [address], [place] Potassium [Moles/Vol] 3.9 mmol/L Normal 3.5-5.1 [facility] Comment on above: Order Comment: No: D o not add to previous draw Performed By: #### 1 69, 14625 #### [facility] [address] [place] [address], [place] Sodium [Moles/Vol] 141 mmol/L Normal 136-145 [facility] Comment on above: Order Comment: No: D o not add to previous draw Performed By: #### 1 69, 56607 #### [facility] [address] [place] [address], [facility] Urea nitrogen [Mass/Vol] 56 mg/dL High 7-25 [facility] Comment on above: Order Comment: No: D o not add to previous draw Performed By: #### 1 69, 84261 #### [facility] [address] [place] [address], [place] CBC COMPLETE BLOOD COUNTon 0 6- Erythrocyte distribution width (RBC) [Ratio] 13.6 % Normal 11.5-15.0 [facility] Comment on above: Order Comment: No: D o not add to previous draw Performed By: #### 5 0103 #### [facility] [address] [place] [address], [facility] Hematocrit (Bld) [Volume fraction] 26.2 % Low 39.0-50.0 [facility] Comment on above: Order Comment: No: D o not add to previous draw Performed By: #### 5 0103 #### [facility] [address] [place] [address], [facility] Hemoglobin (Bld) [Mass/Vol] 8.7 g/dL Low 13.0-17.0 [facility] Comment on above: Order Comment: No: D o not add to previous draw Performed By: #### 5 0103 #### [facility] [address] [place] [address], [facility] MCH (RBC) [Entitic mass] 29.3 pg Normal 27.0-33.0 [facility] Comment on above: Order Comment: No: D o not add to previous draw Performed By: #### 5 0103 #### [facility] [address] [place] [place] [address], [facility] MCHC (RBC) [Mass/Vol] 33.2 g/dL Normal 32.0-35.0 [facility] Comment on above: Order Comment: No: D o not add to previous draw Performed By: #### 5 0103 #### [facility] [address] [place] [address], [facility] MCV (RBC) [Entitic vol] 88.2 fL Normal 82.0-98.0 [facility] Comment on above: Order Comment: No: D o not add to previous draw Performed By: #### 5 0103 #### [facility] [address] [place] [address], [facility] Nucleated RBC/100 WBC (Bld) [Ratio] 0 % Normal 0-0 [facility] Comment on above: Order Comment: No: D o not add to previous draw Performed By: #### 5 0103 #### [facility] [address] [place] [address], [facility] PLAT CNT 190 10*3/uL Normal 150-400 [facility] Comment on above: Order Comment: No: D o not add to previous draw Performed By: #### 5 0103 #### [facility] [address] [place] [address], [facility] RBC (Bld) [#/Vol] 2.97 10*6/uL Low 4.20-5.70 [facility] Comment on above: Order Comment: No: D o not add to previous draw Performed By: #### 5 0103 #### [facility] [address] [place] [address], [facility] WBC (Bld) [#/Vol] 5.20 10*3/uL Normal 4.00-10.60 [facility] Comment on above: Order Comment: No: D o not add to previous draw Performed By: #### 5 0103 #### [facility] [address] [place] [address], [facility] MAGNESIUM BLOODon 04-02-2022 Magnesium [Mass/Vol] 2.2 mg/dL Normal 1.9-2.7 [facility] Comment on above: Order Comment: No: D o not add to previous draw Performed By: #### 1 0070, 34186 #### [facility] [address] [place] [address], [facility] POC GLUCOSE LABon 04-02-2022 Glucose [Mass/Vol] 99 mg/dL Normal 70-100 [facility] Comment on above: Performed By: #### 5 0608 #### [facility] [address] [place] [address], [facility] BASIC METABOLIC PANELon 03-16 Calcium [Mass/Vol] 9.1 mg/dL Normal 8.6-10.3 [facility] Comment on above: Order Comment: No: D o not add to previous draw Performed By: #### 5 0608 #### [facility] [address] [place] [address], [place] Chloride [Moles/Vol] 106 mmol/L Normal 98-107 [facility] Comment on above: Order Comment: No: D o not add to previous draw Performed By: #### 5 0608 #### [facility] [address] [place] [address], [place] CO2 [Moles/Vol] 25 mmol/L Normal 21-31 [facility] Comment on above: Order Comment: No: D o not add to previous draw Performed By: #### 5 0608 #### [facility] [address] [place] [address], [place] Creatinine [Mass/Vol] 2.07 mg/dL High 0.70-1.30 [facility] Comment on above: Order Comment: No: D o not add to previous draw Performed By: #### 5 0608 #### [facility] [address] [place] [address], [facility] eGFR- 38 ml/min/1.73sq m Abnormal >60 [facility] Comment on above: Order Comment: No: D o not add to previous draw Result Comment: Calc ulation may not be valid for patients over 70 years Performed By: #### 5 0608 #### [facility] [address] [place] [address], [place] eGFR- non- 31 ml/min/1.73sq m Abnormal >60 [facility] Comment on above: Order Comment: No: D o not add to previous draw Result Comment: Calc ulation may not be valid for patients over 70 years Performed By: #### 5 0608 #### [facility] [address] [place] [address], [place] Glucose [Mass/Vol] 94 mg/dL Normal 70-100 [facility] Comment on above: Order Comment: No: D o not add to previous draw Performed By: #### 5 0608 #### [facility] [address] [place] [address], [facility] Potassium [Moles/Vol] 3.9 mmol/L Normal 3.5-5.1 [facility] Comment on above: Order Comment: No: D o not add to previous draw Performed By: #### 5 0608 #### [facility] [address] [place] [address], [facility] Sodium [Moles/Vol] 144 mmol/L Normal 136-145 [facility] Comment on above: Order Comment: No: D o not add to previous draw Performed By: #### 5 0608 #### [facility] [address] [place] [address], [facility] Urea nitrogen [Mass/Vol] 54 mg/dL High 7-25 [facility] Comment on above: Order Comment: No: D o not add to previous draw Performed By: #### 5 0608 #### [facility] [address] [place] [address], [facility] CBC COMPLETE BLOOD COUNTon 0 - Erythrocyte distribution width (RBC) [Ratio] 13.5 % Normal 11.5-15.0 [facility] Comment on above: Order Comment: No: D o not add to previous draw Performed By: #### 5 0608 #### [facility] [address] [place] [address], [facility] Hematocrit (Bld) [Volume fraction] 27.5 % Low 39.0-50.0 [facility] Comment on above: Order Comment: No: D o not add to previous draw Performed By: #### 5 0608 #### [facility] [address] [place] [address], [facility] Hemoglobin (Bld) [Mass/Vol] 8.9 g/dL Low 13.0-17.0 [facility] Comment on above: Order Comment: No: D o not add to previous draw Performed By: #### 5 0608 #### [facility] [address] [place] [address], [facility] MCH (RBC) [Entitic mass] 29.2 pg Normal 27.0-33.0 [facility] Comment on above: Order Comment: No: D o not add to previous draw Performed By: #### 5 0608 #### [facility] [address] [place] [address], [facility] MCHC (RBC) [Mass/Vol] 32.4 g/dL Normal 32.0-35.0 [facility] Comment on above: Order Comment: No: D o not add to previous draw Performed By: #### 5 0608 #### [facility] [address] [place] [address], [facility] MCV (RBC) [Entitic vol] 90.2 fL Normal 82.0-98.0 T [facility] Comment on above: Order Comment: No: D o not add to previous draw Performed By: #### 5 0608 #### [facility] [address] [facility]. [address] Nucleated RBC/100 WBC (Bld) [Ratio] 0 % Normal 0-0 [facility] Comment on above: Order Comment: No: D o not add to previous draw Performed By: #### 5 0608 #### [facility] [address] [place] [address], [facility] PLAT CNT 213 10*3/uL Normal 150-400 [facility] Comment on above: Order Comment: No: D o not add to previous draw Performed By: #### 5 0608 #### [facility] [address] [facility] [place] [address], [facility] RBC (Bld) [#/Vol] 3.05 10*6/uL Low 4.20-5.70 [facility] Comment on above: Order Comment: No: D o not add to previous draw Performed By: #### 5 0608 #### [facility] [address] [facility]. [address] WBC (Bld) [#/Vol] 6.02 10*3/uL Normal 4.00-10.60 [facility] Comment on above: Order Comment: No: D o not add to previous draw Performed By: #### 5 0608 #### [facility] [address] Cardiovascular Lab Reporton 04-01-2022 Cardiovascular Lab Report [facility] Patient Name: Melody [facility] MR #: [id number] Physician: Sriram Rick, Department of M.D. Medicine Service Date: 03/31/2022 Division of Birthdate: 1940 Cardiology Room #: 3AB [id number] Adult Cardiovascular Services [place] [address] Cardiovascular Laboratory Report FINAL IMPRESSIONS: 1. Moderately [...] right internal jugular vein was obtained. A 6-Macedonian 11 cm sheath was inserted without difficulty. [...] M.D. Date Trans: 04/01/2022 02:03 Jay Jay/hans [id number] cc: Yas Linda D.O. [address] [place] [id number] Normal [facility] HEMOGLOBIN A1Con 04-01-2022 Glucose [Moles/Vol] 137 mmol/L Normal [facility] Comment on above: Order Comment: If no t done in EDNo: Do not add to previous draw Performed By: #### 5 0103 #### [facility] [address] [place] [address], [facility] HbA1c (Bld) [Mass fraction] 6.4 % High 4.0-6.0 [facility] Comment on above: Order Comment: If no t done in EDNo: Do not add to previous draw Performed By: #### 5 0103 #### [facility] [address] [place] [address], [place] MAGNESIUM BLOODon 04-01-2022 Magnesium [Mass/Vol] 2.2 mg/dL Normal 1.9-2.7 [facility] Comment on above: Order Comment: No: D o not add to previous draw Performed By: #### 5 0608 #### [facility] [address] [place] [address], [place] POC GLUCOSE LABon 04-01-2022 Glucose [Mass/Vol] 114 mg/dL High 70-100 [facility] Comment on above: Performed By: #### 5 0103 #### [facility] [address] [place] [address], [place] Glucose [Mass/Vol] 117 mg/dL High 70-100 [facility] Comment on above: Performed By: #### 5 0608 #### [facility] [address] [place] [address], [place] Glucose [Mass/Vol] 139 mg/dL High 70-100 [facility] Comment on above: Performed By: #### 5 0608 #### [facility] [address] [place] [address], [place] Glucose [Mass/Vol] 98 mg/dL Normal 70-100 [facility] Comment on above: Performed By: #### 5 0608 #### [facility] [address] [place] [address], [place] BASIC METABOLIC PANELon 03-16 Calcium [Mass/Vol] 9.1 mg/dL Normal 8.6-10.3 [facility] Comment on above: Order Comment: No: D o not add to previous draw Performed By: #### 4 4396, 36000, 49265, 73378, 43990 #### [facility] [address] [place] [address], [place] Chloride [Moles/Vol] 104 mmol/L Normal 98-107 [facility] Comment on above: Order Comment: No: D o not add to previous draw Performed By: #### 4 4396, 03761, 15920, 43436, 06216 #### [facility] [address] [place] [address], [facility] CO2 [Moles/Vol] 27 mmol/L Normal 21-31 [facility] Comment on above: Order Comment: No: D o not add to previous draw Performed By: #### 4 4396, 81246, 01022, 17795, 96924 #### [facility] [address] [place] [address], [facility] Creatinine [Mass/Vol] 2.59 mg/dL High 0.70-1.30 [facility] Comment on above: Order Comment: No: D o not add to previous draw Performed By: #### 4 4396, 87646, 59603, 49853, 79113 #### [facility] [address] [place] [address], [facility] eGFR- 29 ml/min/1.73sq m Abnormal >60 [facility] Comment on above: Order Comment: No: D o not add to previous draw Result Comment: Calc ulation may not be valid for patients over 70 years Performed By: #### 4 4396, 24532, 30309, 21241, 42768 #### [facility] [address] [place] [address], [facility] eGFR- non- 24 ml/min/1.73sq m Abnormal >60 [facility] Comment on above: Order Comment: No: D o not add to previous draw Result Comment: Calc ulation may not be valid for patients over 70 years Performed By: #### 4 4396, 37265, 71012, 45836, 53549 #### [facility] [address] [place] [address], [facility] Glucose [Mass/Vol] 90 mg/dL Normal 70-100 [facility] Comment on above: Order Comment: No: D o not add to previous draw Performed By: #### 4 4396, 31154, 85673, 01365, 12663 #### [facility] [address] [place] [address], [facility] Potassium [Moles/Vol] 4.2 mmol/L Normal 3.5-5.1 [facility] Comment on above: Order Comment: No: D o not add to previous draw Performed By: #### 4 4396, 36519, 91233, 14372, 64648 #### [facility] [address] [place] [address], [facility] Sodium [Moles/Vol] 141 mmol/L Normal 136-145 [facility] Comment on above: Order Comment: No: D o not add to previous draw Performed By: #### 4 4396, 04267, 55064, 45588, 83745 #### [facility] [address] [place] [address], [facility] Urea nitrogen [Mass/Vol] 55 mg/dL High 7-25 [facility] Comment on above: Order Comment: No: D o not add to previous draw Performed By: #### 4 4396, 77552, 01001, 94033, 78126 #### [facility] [address] [place] [address], [facility] CBC COMPLETE BLOOD COUNTon 0 - Erythrocyte distribution width (RBC) [Ratio] 13.6 % Normal 11.5-15.0 [facility] Comment on above: Order Comment: No: D o not add to previous draw Performed By: #### 5 0608 #### [facility] [address] [place] [address], [facility] Hematocrit (Bld) [Volume fraction] 27.1 % Low 39.0-50.0 [facility] Comment on above: Order Comment: No: D o not add to previous draw Performed By: #### 5 0608 #### [facility] [address] [place] [address], [place] Hemoglobin (Bld) [Mass/Vol] 8.7 g/dL Low 13.0-17.0 [facility] Comment on above: Order Comment: No: D o not add to previous draw Performed By: #### 5 0608 #### [facility] [address] [place] [place] [address], [facility] MCH (RBC) [Entitic mass] 28.8 pg Normal 27.0-33.0 [facility] Comment on above: Order Comment: No: D o not add to previous draw Performed By: #### 5 0608 #### [facility] [address] [place] [address], [facility] MCHC (RBC) [Mass/Vol] 32.1 g/dL Normal 32.0-35.0 [facility] Comment on above: Order Comment: No: D o not add to previous draw Performed By: #### 5 0608 #### [facility] [address] [place] [address], [facility] MCV (RBC) [Entitic vol] 89.7 fL Normal 82.0-98.0 T [facility] Comment on above: Order Comment: No: D o not add to previous draw Performed By: #### 5 0608 #### [facility] [address] Nucleated RBC/100 WBC (Bld) [Ratio] 0 % Normal 0-0 [facility] Comment on above: Order Comment: No: D o not add to previous draw Performed By: #### 5 0608 #### [facility] [address] [place] [address], [facility] PLAT CNT 184 10*3/uL Normal 150-400 [facility] Comment on above: Order Comment: No: D o not add to previous draw Performed By: #### 5 0608 #### [facility] [address] [place] [address], [facility] RBC (Bld) [#/Vol] 3.02 10*6/uL Low 4.20-5.70 [facility] Comment on above: Order Comment: No: D o not add to previous draw Performed By: #### 5 0608 #### [facility] [address] [place] [address], [facility] WBC (Bld) [#/Vol] 5.93 10*3/uL Normal 4.00-10.60 [facility] Comment on above: Order Comment: No: D o not add to previous draw Performed By: #### 5 0608 #### [facility] [address] [place] [address], [facility] FREE T4on 03-31-2022 Free T4 [Mass/Vol] 4.55 ng/dL High 0.71-1.85 [facility] Comment on above: Performed By: #### 5 0103 #### [facility] [address] [place] [address], [facility] MAGNESIUM BLOODon 03-31-2022 Magnesium [Mass/Vol] 2.3 mg/dL Normal 1.9-2.7 [facility] Comment on above: Order Comment: No: D o not add to previous draw Performed By: #### 4 4396, 10504, 40528, 84219, 99123 #### [facility] [address] [place] [address], [facility] PHOSPHORUS BLOODon 2 Phosphate [Mass/Vol] 5.4 mg/dL High 2.5-5.0 [facility] Comment on above: Order Comment: No: D o not add to previous draw Performed By: #### 4 4396, 73726, 45278, 26865, 97230 #### [facility] [address] [place] [address], [facility] POC GLUCOSE LABon 03-31-2022 Glucose [Mass/Vol] 161 mg/dL High 70-100 [facility] Comment on above: Performed By: #### 5 0608 #### [facility] [address] [place] [address], [facility] Glucose [Mass/Vol] 108 mg/dL High 70-100 [facility] Comment on above: Performed By: #### 5 0608 #### [facility] [address] [facility]. [address] POC SARS COV2 ANTIGEN NEGATI VEon 03-31-2022 POC SARS COV2 ANTIGEN NEG Negative Normal NEGATIVE [facility] Comment on above: Result Comment: Nega [...] antigen from SARS-CoV-2 in direct nasopharyngeal swab ([employer]) specimens from individuals who are suspected of [...] Accreditation. Performed By: #### 5 0103 #### [facility] [address] [facility]. [address] TSH3on 03-31-2022 TSH 3RD GENERATION <0.01 Critically low 0.34-5.60 Th e [facility] Comment on above: Performed By: #### 4 4396, 24082, 60212, 58930, 03459 #### [facility] [address] [facility]. [address] BASIC METABOLIC PANELon 03-16 Calcium [Mass/Vol] 9.8 mg/dL Normal 8.6-10.3 [facility] Comment on above: Order Comment: No: D o not add to previous draw Performed By: #### 5 0103 #### [facility] [address] [place] [address], [place] Chloride [Moles/Vol] 103 mmol/L Normal 98-107 [facility] [facility] Comment [facility]: Order Comment: No: D o not add to previous draw Performed By: #### 5 0103 #### [facility] [address] [place] [address], [place] CO2 [Moles/Vol] 29 mmol/L Normal 21-31 [facility] Comment on above: Order Comment: No: D o not add to previous draw Performed By: #### 5 0103 #### [facility] [address] [place] [address], [place] Creatinine [Mass/Vol] 2.60 mg/dL High 0.70-1.30 [facility] Comment on above: Order Comment: No: D o not add to previous draw Performed By: #### 5 0103 #### [facility] [address] [place] [address], [facility] eGFR- 29 ml/min/1.73sq m Abnormal >60 [facility] Comment on above: Order Comment: No: D o not add to previous draw Result Comment: Calc ulation may not be valid for patients over 70 years Performed By: #### 5 0103 #### [facility] [address] [place] [address], [place] eGFR- non- 24 ml/min/1.73sq m Abnormal >60 [facility] Comment on above: Order Comment: No: D o not add to previous draw Result Comment: Calc ulation may not be valid for patients over 70 years Performed By: #### 5 0103 #### [facility] [address] [place] [address], [place] Glucose [Mass/Vol] 109 mg/dL High 70-100 [facility] Comment on above: Order Comment: No: D o not add to previous draw Performed By: #### 5 0103 #### [facility] [address] Potassium [Moles/Vol] 4.0 mmol/L Normal 3.5-5.1 [facility] Comment on above: Order Comment: No: D o not add to previous draw Performed By: #### 5 0103 #### [facility] [address] Sodium [Moles/Vol] 141 mmol/L Normal 136-145 [facility] Comment on above: Order Comment: No: D o not add to previous draw Performed By: #### 5 0103 #### [facility] [address] Urea nitrogen [Mass/Vol] 55 mg/dL High 7-25 [facility] Comment on above: Order Comment: No: D o not add to previous draw Performed By: #### 5 0103 #### [facility] [address] CBC W/DIFFon 03-30-2022 ABS IMM GRANS 0.0 10*3/uL Normal 0.0-0.2 [facility] Comment on above: Performed By: #### 5 0103 #### [facility] [address] [facility]. [address] ABS NEUTROPHILS 4.1 10*3/uL Normal 1.6-7.6 [facility] Comment on above: Performed By: #### 5 0103 #### [facility] [address] [place] [address], [facility] Basophils (Bld) [#/Vol] 0.0 10*3/uL Normal 0.0-0.2 [facility] Comment on above: Performed By: #### 5 0103 #### [facility] [address] [place] [address], [facility] Basophils/100 WBC (Bld) 0.3 % Normal 0.0-1.0 T jeff [facility] Comment on above: Performed By: #### 5 0103 #### [facility] [address] [place] [address], [facility] Eosinophils (Bld) [#/Vol] 0.3 10*3/uL Normal 0.0-0.5 [facility] Comment on above: Performed By: #### 5 0103 #### [facility] [address] [facility] [place] [place] [address], [facility] Eosinophils/100 WBC (Bld) 5.3 % Normal 0.0-6.0 [facility] Comment on above: Performed By: #### 5 0103 #### [facility] [address] Erythrocyte distribution width (RBC) [Ratio] 13.7 % Normal 11.5-15.0 [facility] Comment on above: Performed By: #### 5 0103 #### [facility] [address] [place] [address], [facility] Hematocrit (Bld) [Volume fraction] 30.2 % Low 39.0-50.0 [facility] Comment on above: Performed By: #### 5 0103 #### [facility] [address] [facility] [place] [address], [facility] Hemoglobin (Bld) [Mass/Vol] 9.8 g/dL Low 13.0-17.0 [facility] Comment on above: Performed By: #### 5 0103 #### [facility] [address] [place] [address], [facility] IMMATURE GRANS 0.3 % Normal 0.0-1.0 [facility] Comment on above: Performed By: #### 5 0103 #### [facility] [address] [place] [address], [facility] Lymphocytes (Bld) [#/Vol] 1.1 10*3/uL Low 1.2-4.0 [facility] Comment on above: Performed By: #### 5 0103 #### [facility] [address] [place] [address], [facility] Lymphocytes/100 WBC (Bld) 17.9 % Low 20.0-45.0 [facility] Comment on above: Performed By: #### 5 0103 #### [facility] [address] MCH (RBC) [Entitic mass] 29.3 pg Normal 27.0-33.0 [facility] Comment on above: Performed By: #### 5 3 #### [facility] [address] [facility]. [address] MCHC (RBC) [Mass/Vol] 32.5 g/dL Normal 32.0-35.0 [facility] Comment on above: Performed By: #### 5 3 #### [facility] [address] [facility] [place] [address], [facility] MCV (RBC) [Entitic vol] 90.4 fL Normal 82.0-98.0 T [facility] Comment on above: Performed By: #### 5 3 #### [facility] [address] [facility] [place] [address], [facility] Monocytes (Bld) [#/Vol] 0.7 10*3/uL Normal 0.1-1.0 [facility] Comment on above: Performed By: #### 5 3 #### [facility] [address] [place] [address], [facility] MONOS 11.6 % Normal 5.0-12.0 [facility] Comment on above: Performed By: #### 5 3 #### [facility] [address] [facility] [place] [address], [place] Neutrophils/100 WBC (Bld) 64.6 % Normal 40.0-72.0 [facility] Comment on above: Performed By: #### 5 0103 #### [facility] [address] [place] [address], [facility] Nucleated RBC/100 WBC (Bld) [Ratio] 0 % Normal 0-0 [facility] Comment on above: Performed By: #### 5 0103 #### [facility] [address] [place] [address], [facility] PLAT CNT 215 10*3/uL Normal 150-400 [facility] Comment on above: Performed By: #### 5 0103 #### [facility] [address] [place] [address], [facility] RBC (Bld) [#/Vol] 3.34 10*6/uL Low 4.20-5.70 [facility] Comment on above: Performed By: #### 5 0103 #### [facility] [address] [place] [address], [facility] WBC (Bld) [#/Vol] 6.38 10*3/uL Normal 4.00-10.60 [facility] Comment on above: Performed By: #### 5 0103 #### [facility] [address] [place] [address], [facility] MAGNESIUM BLOODon 03-30-2022 Magnesium [Mass/Vol] 2.3 mg/dL Normal 1.9-2.7 [facility] Comment on above: Order Comment: No: D o not add to previous draw Performed By: #### 5 0103 #### [facility] [address] [place] [address], [facility] TROPONIN-Ion 03-30-2022 Troponin I.cardiac [Mass/Vol] 0.04 ng/mL Normal 0.00-0.04 [facility] Comment on above: Order Comment: No: D o not add to previous draw Result Comment: REFE RENCE RANGES: 0.00 - 0.04 ng/ml NORMAL 0.05 - 0.50 ng/ml INDETERMINATE > 0.50 ng/ml CONSISTENT WITH AN M.I. Performed By: #### 5 0103 #### [facility] [address] [place] [address], [facility] BNPon 03-25-2022 Natriuretic peptide B (Bld) [Mass/Vol] 7410.0 pg/mL Critically high <=1,800.0 [facility] Comment on above: Performed By: #### F T4 #### [facility] [address] [place] [address] Dr. Benito Schwartz PROF CHEM 8 (BAS METB)on Anion gap [Moles/Vol] 14.5 mmol/L Normal [facility] Comment on above: Performed By: #### F T4 #### [facility] [address] [place] [address] Dr. Benito Schwartz Calcium [Mass/Vol] 9.6 mg/dL Normal 8.5-10.1 [facility] Comment on above: Performed By: #### F T4 #### [facility] [address] [place] [address] Dr. Benito Schwartz Chloride [Moles/Vol] 105 mmol/L Normal 98-107 [facility] Comment on above: Performed By: #### F T4 #### [facility] [address] [address] [address] Benito Schwartz CO2 [Moles/Vol] 27.6 mmol/L Normal 21.0-32.0 [facility] Comment on above: Performed By: #### F T4 #### [facility] [address] [place] [address] Dr. Benito Schwartz Creatinine [Mass/Vol] 2.48 mg/dL Critically high 0.70-1.30 [facility] Comment on above: Performed By: #### F T4 #### [facility] [address] [place] [address] Dr. Benito Schwartz EGFR-AF DOMINICAN 31 mL/min/1.73m2 Critically low >=60 [facility] Comment on above: Performed By: #### F T4 #### [facility] [address] [address] [address] Benito Schwartz EGFR-NON AF DOMINICAN 25 mL/min/1.73m2 Critically low >=60 [facility] Comment on above: Performed By: #### F T4 #### [facility] [address] [address] [address] Benito Schwartz Glucose [Mass/Vol] 116 mg/dL Critically high 74-106 [facility] Comment on above: Performed By: #### F T4 #### [facility] [address] [address] [address] Benito Schwartz Potassium [Moles/Vol] 4.1 mmol/L Normal 3.5-5.1 [facility] Comment on above: Performed By: #### F T4 #### [facility] [address] [address] [address] Benito Schwartz Sodium [Moles/Vol] 143 mmol/L Normal 136-145 [facility] Comment on above: Performed By: #### F T4 #### [facility] [address] [address] [address] Benito Schwartz Urea nitrogen [Mass/Vol] 56.0 mg/dL Critically high 7.0-18 .0 [facility] Comment on above: Performed By: #### F T4 #### [facility] [address] [address] [address] Benito Schwartz Urea nitrogen/Creatinine [Mass ratio] 22.6 mg/mg Normal [facility] Comment on above: Performed By: #### F T4 #### [facility] [address] [address] [address] Benito Schwartz CBC AUTO DIFFon 03-07-2022 BASO # 0.0 103/ul Normal 0.0-0.1 [facility] Comment on above: Performed By: #### V ITAD #### [facility] [address] [address] [address] Benito Schwartz Basophils/100 WBC (Bld) 0.3 % Normal 0.2-2.0 [facility] Comment on above: Performed By: #### V ITAD #### [facility] [address] [place] [address] Dr. Benito Schwartz EO # 0.1 103/ul Normal 0.0-0.7 [facility] Comment on above: Performed By: #### V ITAD #### [facility] [address] [place] [address] Dr. Benito Schwartz Eosinophils/100 WBC (Bld) 2.4 % Normal 0.9-7.0 [facility] Comment on above: Performed By: #### V ITAD #### [facility] [address] [place] [address] Dr. Benito Schwartz Erythrocyte distribution width (RBC) [Ratio] 13.4 % Normal 11.0-15.0 [facility] Comment on above: Performed By: #### V ITAD #### [facility] [address] [place] [address] Dr. Benito Schwartz Hematocrit (Bld) [Volume fraction] 27.7 % Critically low 42.0-54.0 [facility] Comment on above: Performed By: #### V ITAD #### [facility] [address] [place] [address] Dr. Benito Schwartz Hemoglobin (Bld) [Mass/Vol] 8.8 g/dL Critically low 14.0-18.0 [facility] Comment on above: Performed By: #### V ITAD #### [facility] [address] [place] [address] Dr. Benito Schwartz IG # 0.02 10e3/ul Normal 0.00-0.03 [facility] Comment on above: Performed By: #### V ITAD #### [facility] [address] [place] [address] Dr. Benito Schwartz IG % 0.3 % Normal 0.0-0.5 [facility] Comment on above: Performed By: #### V ITAD #### [facility] [address] [place] [address] Dr. Benito Schwartz LYMPH # 1.1 103/ul Critically low 1.2-3.8 [facility] Comment on above: Performed By: #### V ITAD #### [facility] [address] [address] [address] Benito Schwartz Lymphocytes/100 WBC (Bld) 17.9 % Critically low 20.5-6 0.0 [facility] Comment on above: Performed By: #### V ITAD #### [facility] [address] [address] [address] Benito Schwartz MANUAL DIFF REQ NO Normal [facility] Comment on above: Performed By: #### V ITAD #### [facility] [address] [place] [address] Dr. Benito Schwartz MCH (RBC) [Entitic mass] 29.0 pg Normal 25.9-34.0 [facility] Comment on above: Performed By: #### V ITAD #### [facility] [address] [place] [address] Dr. Benito Schwartz MCHC (RBC) [Mass/Vol] 31.8 g/dL Normal 29.9-35.2 [facility] Comment on above: Performed By: #### V ITAD #### [facility] [address] [place] [address] Dr. Benito Schwartz MCV (RBC) [Entitic vol] 91.4 fL Normal 80.0-94.0 [facility] Comment on above: Performed By: #### V ITAD #### [facility] [address] [place] [address] Dr. Benito Schwartz MONO # 0.9 103/ul Critically high 0.3-0.8 [facility] Comment on above: Performed By: #### V ITAD #### [facility] [address] [place] [address] Dr. Benito Schwartz Monocytes/100 WBC (Bld) 15.3 % Critically high 1.7-12. 0 [facility] Comment on above: Performed By: #### V ITAD #### [facility] [address] [place] [address] Dr. Benito Schwartz NEUT # 3.7 103/ul Normal 1.4-6.5 [facility] Comment on above: Performed By: #### V ITAD #### [facility] [address] [address] [address] Benito Schwartz Neutrophils/100 WBC (Bld) 63.8 % Normal 43.0-75.0 [facility] Comment on above: Performed By: #### V ITAD #### [facility] [address] [address] [address] Benito Schwartz Platelet mean volume (Bld) [Entitic vol] 9.8 fL Normal 9.5-13.5 [facility] Comment on above: Performed By: #### V ITAD #### [facility] [address] [address] [address] Benito Schwartz PLT 212 103/ul Normal 150-450 [facility] Comment on above: Performed By: #### V ITAD #### [facility] [address] [address] [address] Benito Schwartz RBC 3.03 106/ul Critically low 4.70-6.10 [facility] Comment on above: Performed By: #### V ITAD #### [facility] [id number] Benito Schwartz WBC 5.9 103/ul Normal 4.0-11.0 [facility] Comment on above: Performed By: #### V ITAD #### [facility] [id number] Benito Schwartz ECHOCARDIO M/2D COMPLETEon 0 03-07-2022 ECHOCARDIO M/2D COMPLETE Patient: DELANO REN Exam Date: 03/07/2022 : 1940 Gender:M Ordering : DR RUPINDER GRIGSBY . Admission #: [id number] Family : DR YAS LINDA D.O. Order #: [id number] CLICK HERE TO VIEW EXAM ECHOCARDIOGRAM REPORT [...] Area(A4C): 23.30 cm2 Left Atrium Systolic Volume(A2C): 98231 mm3 Left Atrium Systolic Volume(A4C): 50194 mm3 Mitral Valve MV E to A [...] Rick M.D. on 03/08/2022 at 11:16 Normal [facility] OCC BLD IMMUNO SCREENon 02-14 OCCULT BLOOD Negative Normal NEGATIVE [facility] Comment on above: Performed By: #### V ITAD #### [facility] [address] [place] [address] Dr. Benito Schwartz POINT OF CARE GLUCOSEon 02-14 Glucose [Mass/Vol] 124 mg/dL Critically high 74-106 [facility] Comment on above: Performed By: #### B 12FOL FETIBC #### [facility] [address] [place] [address] Dr. Benito Schwartz PROF CHEM 8 (BAS METB)on Anion gap [Moles/Vol] 13.1 mmol/L Normal [facility] Comment on above: Performed By: #### B 12FOL, FETIBC #### [facility] [address] [place] [address] Dr. Benito Schwartz Calcium [Mass/Vol] 9.2 mg/dL Normal 8.5-10.1 [facility] Comment on above: Performed By: #### B 12FOL, FETIBC #### [facility] [address] [place] [address] Dr. Benito Schwartz Chloride [Moles/Vol] 105 mmol/L Normal 98-107 [facility] Comment on above: Performed By: #### B 12FOL, FETIBC #### [facility] [address] [place] [address] Dr. Benito Schwartz CO2 [Moles/Vol] 28.6 mmol/L Normal 21.0-32.0 [facility] Comment on above: Performed By: #### B 12FOL, FETIBC #### [facility] [address] [place] [address] Dr. Benito Schwartz Creatinine [Mass/Vol] 2.22 mg/dL Critically high 0.70-1.30 [facility] Comment on above: Performed By: #### B 12FOL, FETIBC #### [facility] [address] [place] [address] Dr. Benito Schwartz EGFR-AF DOMINICAN 35 mL/min/1.73m2 Critically low >=60 [facility] Comment on above: Performed By: #### B 12FOL, FETIBC #### [facility] [address] [place] [address] Dr. Benito Schwartz EGFR-NON AF DOMINICAN 29 mL/min/1.73m2 Critically low >=60 [facility] Comment on above: Performed By: #### B 12FOL, FETIBC #### [facility] [address] [place] [address] Dr. Benito Schwartz Glucose [Mass/Vol] 110 mg/dL Critically high 74-106 [facility] Comment on above: Performed By: #### B 12FOL, FETIBC #### [facility] [address] [place] [address] Dr. Benito Schwartz Potassium [Moles/Vol] 3.7 mmol/L Normal 3.5-5.1 [facility] Comment on above: Performed By: #### B 12FOL, FETIBC #### [facility] [address] [place] [address] Dr. Benito Schwartz Sodium [Moles/Vol] 143 mmol/L Normal 136-145 [facility] Comment on above: Performed By: #### B 12FOL, FETIBC #### [facility] [address] [place] [address] Dr. Benito Schwartz Urea nitrogen [Mass/Vol] 66.0 mg/dL Critically high 7.0-18 .0 [facility] Comment on above: Performed By: #### B 12FOL, FETIBC #### [facility] [address] [place] [address] Dr. Benito Schwartz Urea nitrogen/Creatinine [Mass ratio] 29.7 mg/mg Normal [facility] Comment on above: Performed By: #### B 12FOL, FETIBC #### [facility] [address] [place] [address] Dr. Benito Schwartz CBC AUTO DIFFon 03-06-2022 BASO # 0.0 103/ul Normal 0.0-0.1 [facility] Comment on above: Performed By: #### B 12FOL, FETIBC #### [facility] [address] [place] [address] Dr. Benito Schwartz Basophils/100 WBC (Bld) 0.2 % Normal 0.2-2.0 [facility] Comment on above: Performed By: #### B 12FOL, FETIBC #### [facility] [address] [place] [address] Dr. Benito Schwartz EO # 0.1 103/ul Normal 0.0-0.7 [facility] Comment on above: Performed By: #### B 12FOL, FETIBC #### [facility] [address] [place] [address] Dr. Benito Schwartz Eosinophils/100 WBC (Bld) 2.4 % Normal 0.9-7.0 [facility] Comment on above: Performed By: #### B 12FOL, FETIBC #### [facility] [address] [place] [address] Dr. Benito Schwartz Erythrocyte distribution width (RBC) [Ratio] 13.8 % Normal 11.0-15.0 [facility] Comment on above: Performed By: #### B 12FOL, FETIBC #### [facility] [address] [place] [address] Dr. Benito Schwartz Hematocrit (Bld) [Volume fraction] 27.7 % Critically low 42.0-54.0 [facility] Comment on above: Performed By: #### B 12FOL, FETIBC #### [facility] [address] [place] [address] Dr. Benito Schwartz Hemoglobin (Bld) [Mass/Vol] 8.7 g/dL Critically low 14.0-18.0 [facility] Comment on above: Performed By: #### B 12FOL, FETIBC #### [facility] [address] [place] [address] Dr. Benito Schwartz IG # 0.02 10e3/ul Normal 0.00-0.03 [facility] Comment on above: Performed By: #### B 12FOL, FETIBC #### [facility] [address] [place] [address] Dr. Benito Schwartz IG % 0.3 % Normal 0.0-0.5 [facility] Comment on above: Performed By: #### B 12FOL, FETIBC #### [facility] [address] [place] [address] Dr. Benito Schwartz LYMPH # 1.0 103/ul Critically low 1.2-3.8 [facility] Comment on above: Performed By: #### B 12FOL, FETIBC #### [facility] [address] [place] [address] Dr. Benito Schwartz Lymphocytes/100 WBC (Bld) 16.7 % Critically low 20.5-6 0.0 [facility] Comment on above: Performed By: #### B 12FOL, FETIBC #### [facility] [address] [place] [address] Dr. Benito Schwartz MANUAL DIFF REQ NO Normal [facility] Comment on above: Performed By: #### B 12FOL, FETIBC #### [facility] [address] [place] [address] Dr. Benito Schwartz MCH (RBC) [Entitic mass] 29.1 pg Normal 25.9-34.0 [facility] Comment on above: Performed By: #### B 12FOL, FETIBC #### [facility] [address] [place] [address] Dr. Benito Schwartz MCHC (RBC) [Mass/Vol] 31.4 g/dL Normal 29.9-35.2 [facility] Comment on above: Performed By: #### B 12FOL, FETIBC #### [facility] [address] [place] [address] Dr. Benito Schwartz MCV (RBC) [Entitic vol] 92.6 fL Normal 80.0-94.0 [facility] Comment on above: Performed By: #### B 12FOL, FETIBC #### [facility] [address] [place] [address] Dr. Benito Schwartz MONO # 0.9 103/ul Critically high 0.3-0.8 [facility] Comment on above: Performed By: #### B 12FOL, FETIBC #### [facility] [address] [place] [address] Dr. Benito Schwartz Monocytes/100 WBC (Bld) 15.3 % Critically high 1.7-12. 0 [facility] Comment on above: Performed By: #### B 12FOL, FETIBC #### [facility] [address] [place] [address] Dr. Benito Schwartz NEUT # 3.7 103/ul Normal 1.4-6.5 [facility] Comment on above: Performed By: #### B 12FOL, FETIBC #### [facility] [address] [place] [address] Dr. Benito Schwartz Neutrophils/100 WBC (Bld) 65.1 % Normal 43.0-75.0 [facility] Comment on above: Performed By: #### B 12FOL, FETIBC #### [facility] [address] [place] [address] Dr. Benito Schwartz Platelet mean volume (Bld) [Entitic vol] 9.7 fL Normal 9.5-13.5 [facility] Comment on above: Performed By: #### B 12FOL, FETIBC #### [facility] [facility] [address] [address] [address] Benito Schwartz PLT 205 103/ul Normal 150-450 [facility] Comment on above: Performed By: #### B 12FOL, FETIBC #### [facility] [address] [address] [address] Benito Schwartz RBC 2.99 106/ul Critically low 4.70-6.10 [facility] Comment on above: Performed By: #### Adria 12FOL, FETIBC #### [facility] [address] [address] [address] Benito Schwartz WBC 5.7 103/ul Normal 4.0-11.0 [facility] Comment on above: Performed By: #### B 12FOL, FETIBC #### [facility] [address] [address] [address] HEAD WO CONon [...] ANTHONY TRACEY Date: 2022-03-06 12:33 Normal [facility] IRON AND TIBCon 03-06-2022 % SATURATION 24.7 % Normal [facility] Comment on above: Performed By: #### B 12FOL, FETIBC #### [facility] [address] [address] [address] Benito Schwartz Iron [Mass/Vol] 55.0 ug/dL Critically low 65.0-175.0 [facility] Comment on above: Performed By: #### B 12FOL, FETIBC #### [facility] [address] [address] [address] Benito Schwartz TIBC DIRECT 223.0 ug/dL Critically low 250.0-450.0 [facility] Comment on above: Performed By: #### B 12FOL, FETIBC #### [facility] [address] [address] [address] Benito Schwartz POINT OF CARE GLUCOSEon 02-14 Glucose [Mass/Vol] 145 mg/dL Critically high 74-106 [facility] Comment on above: Performed By: #### V ITAD #### [facility] [address] [place] [address] Dr. Benito Schwartz PROF CHEM 8 (BAS METB)on Anion gap [Moles/Vol] 14.6 mmol/L Normal [facility] Comment on above: Performed By: #### V ITAD #### [facility] [address] [place] [address] Dr. Benito Schwartz Calcium [Mass/Vol] 9.0 mg/dL Normal 8.5-10.1 [facility] Comment on above: Performed By: #### V ITAD #### [facility] [address] [place] [address] Dr. Benito Schwartz Chloride [Moles/Vol] 106 mmol/L Normal 98-107 [facility] Comment on above: Performed By: #### V ITAD #### [facility] [address] [place] [address] Dr. Benito Schwartz CO2 [Moles/Vol] 26.3 mmol/L Normal 21.0-32.0 [facility] Comment on above: Performed By: #### V ITAD #### [facility] [address] [place] [address] Dr. Benito Schwartz Creatinine [Mass/Vol] 2.40 mg/dL Critically high 0.70-1.30 [facility] Comment on above: Performed By: #### V ITAD #### [facility] [address] [address] [address] Benito Schwartz EGFR-AF DOMINICAN 32 mL/min/1.73m2 Critically low >=60 [facility] Comment on above: Performed By: #### V ITAD #### [facility] [address] [address] [address] Benito Schwartz EGFR-NON AF DOMINICAN 26 mL/min/1.73m2 Critically low >=60 [facility] Comment on above: Performed By: #### V ITAD #### [facility] [address] [address] [address] Benito Schwartz Glucose [Mass/Vol] 108 mg/dL Critically high 74-106 [facility] Comment on above: Performed By: #### V ITAD #### [facility] [address] [place] [address] Dr. Benito Schwartz Potassium [Moles/Vol] 3.9 mmol/L Normal 3.5-5.1 [facility] Comment on above: Performed By: #### V ITAD #### [facility] [address] [place] [address] Dr. Benito Schwartz Sodium [Moles/Vol] 143 mmol/L Normal 136-145 [facility] Comment on above: Performed By: #### V ITAD #### [facility] [address] [place] [address] Dr. Benito Schwartz Urea nitrogen [Mass/Vol] 72.0 mg/dL Critically high 7.0-18 .0 [facility] Comment on above: Performed By: #### V ITAD #### [facility] [address] [place] [address] Dr. Benito Schwartz Urea nitrogen/Creatinine [Mass ratio] 30.0 mg/mg Normal [facility] Comment on above: Performed By: #### V ITAD #### [facility] [address] [address] [address] Benito Schwartz VIT B12 AND FOLATEon 022 Cobalamin (Vitamin B12) [Mass/Vol] 432.0 pg/mL Normal 193.0-986.0 [facility] Comment on above: Performed By: #### B 12FOL, FETIBC #### [facility] [address] [place] [address] Dr. Benito Schwartz FOLATE 21.60 ng/mL Normal 8.60-58.90 [facility] Comment on above: Performed By: #### B 12FOL, FETIBC #### [facility] [address] [place] [address] Dr. Benito Schwartz BNPon 03-05-2022 Natriuretic peptide B (Bld) [Mass/Vol] 6910.0 pg/mL Critically high <=1,800.0 [facility] Comment on above: Result Comment: Test Repeated. Critical Value Verified Performed By: #### B 12FOLoli, FETIBC #### [facility] [address] [place] [address] Dr. Benito Schwartz CBC AUTO DIFFon 03-05-2022 BASO # 0.0 103/ul Normal 0.0-0.1 [facility] Comment on above: Performed By: #### F T4, PSASC #### [facility] [address] [place] [address] Dr. Benito Schwartz Basophils/100 WBC (Bld) 0.3 % Normal 0.2-2.0 [facility] Comment on above: Performed By: #### F T4, PSASC #### [facility] [address] [place] [address] Dr. Benito Schwartz EO # 0.2 103/ul Normal 0.0-0.7 [facility] Comment on above: Performed By: #### F T4, PSASC #### [facility] [address] [place] [address] Dr. Benito Schwartz Eosinophils/100 WBC (Bld) 2.7 % Normal 0.9-7.0 [facility] Comment on above: Performed By: #### F T4, PSASC #### [facility] [address] [place] [address] Dr. Benito Schwartz Erythrocyte distribution width (RBC) [Ratio] 13.7 % Normal 11.0-15.0 [facility] Comment on above: Performed By: #### F T4, PSASC #### [facility] [address] [address] [address] Benito Schwartz Hematocrit (Bld) [Volume fraction] 27.9 % Critically low 42.0-54.0 [facility] Comment on above: Performed By: #### F T4, PSASC #### [facility] [address] [place] [address] Dr. Benito Schwartz Hemoglobin (Bld) [Mass/Vol] 8.9 g/dL Critically low 14.0-18.0 [facility] Comment on above: Performed By: #### F T4, PSASC #### [facility] [address] [address] [address] Benito Schwartz IG # 0.01 10e3/ul Normal 0.00-0.03 [facility] Comment on above: Performed By: #### F T4, PSASC #### [facility] [address] [place] [address] Dr. Benito Schwartz IG % 0.2 % Normal 0.0-0.5 [facility] Comment on above: Performed By: #### F T4, PSASC #### [facility] [address] [place] [address] Dr. Benito Schwartz LYMPH # 1.3 103/ul Normal 1.2-3.8 [facility] Comment on above: Performed By: #### F T4, PSASC #### [facility] [address] [address] [address] Benito Schwartz Lymphocytes/100 WBC (Bld) 21.5 % Normal 20.5-60.0 [facility] Comment on above: Performed By: #### F T4, PSASC #### [facility] [address] [place] [address] Dr. Benito Schwartz MANUAL DIFF REQ NO Normal [facility] Comment on above: Performed By: #### F T4, PSASC #### [facility] [address] [place] [address] Dr. Benito Schwartz MCH (RBC) [Entitic mass] 29.5 pg Normal 25.9-34.0 [facility] Comment on above: Performed By: #### F T4, PSASC #### [facility] [address] [place] [address] Dr. Benito Schwartz MCHC (RBC) [Mass/Vol] 31.9 g/dL Normal 29.9-35.2 [facility] Comment on above: Performed By: #### F T4, PSASC #### [facility] [address] [place] [address] Dr. Benito Schwartz MCV (RBC) [Entitic vol] 92.4 fL Normal 80.0-94.0 [facility] Comment on above: Performed By: #### F T4, PSASC #### [facility] [address] [place] [address] Dr. Benito Schwartz MONO # 1.0 103/ul Critically high 0.3-0.8 [facility] Comment on above: Performed By: #### F T4, PSASC #### [facility] [address] [place] [address] Dr. Benito Schwartz Monocytes/100 WBC (Bld) 16.3 % Critically high 1.7-12. 0 [facility] Comment on above: Performed By: #### F T4, PSASC #### [facility] [address] [place] [address] Dr. Benito Schwartz NEUT # 3.5 103/ul Normal 1.4-6.5 [facility] Comment on above: Performed By: #### F T4, PSASC #### [facility] [address] [place] [address] Dr. Benito Schwartz Neutrophils/100 WBC (Bld) 59.0 % Normal 43.0-75.0 [facility] Comment on above: Performed By: #### F T4, PSASC #### [facility] [address] [place] [address] Dr. Benito Schwartz Platelet mean volume (Bld) [Entitic vol] 9.5 fL Normal 9.5-13.5 [facility] Comment on above: Performed By: #### F T4, PSASC #### [facility] [address] [place] [address] Dr. Benito Schwartz PLT 213 103/ul Normal 150-450 [facility] Comment on above: Performed By: #### F T4, PSASC #### [facility] [address] [address] [address] Benito Schwartz RBC 3.02 106/ul Critically low 4.70-6.10 [facility] Comment on above: Performed By: #### F T4, PSASC #### [facility] [address] [place] [address] Dr. Benito Schwartz WBC 5.9 103/ul Normal 4.0-11.0 [facility] Comment on above: Performed By: #### F T4, PSASC #### [facility] [address] [place] [address] Dr. Benito Schwartz CULTURE BLOODon 03-05-2022 Microscopic examination of blood, culture Culture Observations: NO GROWTH AT 5 DAYS. Normal [facility] Comment on above: Performed By: #### V ITAD #### [facility] [address] [place] [address] Dr. Benito Schwartz Covid-19 PCR (CVDTB)on 02-14 SARS-CoV-2 (COVID-19) RNA ZITA+probe Ql (Unsp spec) Not detected Normal NOT DETECTED [facility] Comment on above: Result Comment: This test is not yet approved or cleared by the [place] FDA. When there are no FDA-approved or cleared tests available, and other criteria are met, FDA can make tests available under an emergency access mechanism called an Emergency Use Authorization (EUA). The EUA for this test is supported by the [place] of Health and Human Service's (HHS's) declaration [...] SARS-CoV-2. Performed By: #### C BC #### [facility] [address] [place] [address] Dr. Benito Schwartz FREE T4on 03-05-2022 Free T4 [Mass/Vol] ng/dL Critically high 0.76-1.46 [facility] Comment on above: Performed By: #### C BC #### [facility] [address] [place] [address] Dr. Benito Schwartz LACTATE/LACTIC ACIDon 2021 Lactate [Moles/Vol] 1.2 mmol/L Normal 0.4-1.9 [facility] Comment on above: Performed By: #### F T4 #### [facility] [address] [place] [address] Dr. Benito Schwartz PROF 14(COMP METB)on 022 Albumin [Mass/Vol] 2.9 g/dL Critically low 3.4-5.0 [facility] Comment on above: Performed By: #### F T4, PSASC #### [facility] [address] [place] [address] Dr. Benito Schwartz Albumin/Globulin [Mass ratio] 0.8 {ratio} Normal [facility] Comment on above: Performed By: #### F T4, PSASC #### [facility] [address] [place] [address] Dr. Benito Schwartz ALP [Catalytic activity/Vol] 107 U/L Normal 46-116 [facility] Comment on above: Performed By: #### F T4, PSASC #### [facility] [address] [place] [address] Dr. Benito Schwartz ALT [Catalytic activity/Vol] 25 U/L Normal 16-63 [facility] Comment on above: Performed By: #### F T4, PSASC #### [facility] [address] [place] [address] Dr. Benito Schwartz Anion gap [Moles/Vol] 14.2 mmol/L Normal [facility] Comment on above: Performed By: #### F T4, PSASC #### [facility] [address] [address] [address] Benito Schwartz AST [Catalytic activity/Vol] 17 U/L Normal 15-37 [facility] Comment on above: Performed By: #### F T4, PSASC #### [facility] [address] [place] [address] Dr. Benito Schwartz Bilirubin [Mass/Vol] 0.5 mg/dL Normal 0.2-1.0 [facility] Comment on above: Performed By: #### F T4, PSASC #### [facility] [address] [place] [address] Dr. Benito Schwartz Calcium [Mass/Vol] 9.1 mg/dL Normal 8.5-10.1 [facility] Comment on above: Performed By: #### F T4, PSASC #### [facility] [address] [place] [address] Dr. Benito Schwartz Chloride [Moles/Vol] 104 mmol/L Normal 98-107 [facility] Comment on above: Performed By: #### F T4, PSASC #### [facility] [address] [place] [address] Dr. Benito Schwatrz CO2 [Moles/Vol] 27.0 mmol/L Normal 21.0-32.0 [facility] Comment on above: Performed By: #### F T4, PSASC #### [facility] [address] [place] [address] Dr. Benito Schwartz Creatinine [Mass/Vol] 2.97 mg/dL Critically high 0.70-1.30 [facility] Comment on above: Performed By: #### F T4, PSASC #### [facility] [address] [place] [address] Dr. Benito Schwartz EGFR-AF DOMINICAN 25 mL/min/1.73m2 Critically low >=60 [facility] Comment on above: Performed By: #### F T4, PSASC #### [facility] [address] [place] [address] Dr. Benito Schwartz EGFR-NON AF DOMINICAN 21 mL/min/1.73m2 Critically low >=60 [facility] Comment on above: Performed By: #### F T4, PSASC #### [facility] [address] [address] [address] Benito Schwartz Globulin (S) [Mass/Vol] 3.6 g/dL Normal [facility] Comment on above: Performed By: #### F T4, PSASC #### [facility] [address] [address] [address] Benito Schwartz Glucose [Mass/Vol] 162 mg/dL Critically high 74-106 [facility] Comment on above: Performed By: #### F T4, PSASC #### [facility] [address] [address] [address] Benito Schwartz Potassium [Moles/Vol] 4.2 mmol/L Normal 3.5-5.1 [facility] Comment on above: Performed By: #### F T4, PSASC #### [facility] [address] [address] [address] Benito Schwartz Protein [Mass/Vol] 6.5 g/dL Normal 6.4-8.2 [facility] Comment on above: Performed By: #### F T4, PSASC #### [facility] [address] [address] [address] Benito Schwartz Sodium [Moles/Vol] 141 mmol/L Normal 136-145 [facility] Comment on above: Performed By: #### F T4, PSASC #### [facility] [address] [address] [address] Benito Schwartz Urea nitrogen [Mass/Vol] 74.0 mg/dL Critically high 7.0-18 .0 [facility] Comment on above: Performed By: #### F T4, PSASC #### [facility] [address] [address] [address] Benito Schwartz Urea nitrogen/Creatinine [Mass ratio] 24.9 mg/mg Normal [facility] Comment on above: Performed By: #### F T4, PSASC #### [facility] [address] [place] [address] Dr. Benito Schwartz TROPONIN, HIGH SENSITIVITYon 03-05-2022 HSTROP 39.6 pg/mL Normal 4.0-76.1 [facility] Comment on above: Result Comment: CUT- OFF POINTS HAVE BEEN ESTABLISHED BASED ON THE FOURTH UNIVERSAL DEFINITIONS OF MYOCARDIAL INFARCTION. THE UPPER REFERENCE LIMIT (URL) OF TROPONIN, DEFINED THE 99TH PERCENTILE OF cTnI DISTRIBUTION IN A REFERENCE POPULATION, HAS BEEN CONFIRMED THE DECISION THRESHOLD FOR [place] DIAGNOSIS. Performed By: #### F T4, PSASC #### [facility] [address] [address] [address] Benito Schwartz TSHon 03-05-2022 TSH Qn m[IU]/L Critically low 0.358-3.740 [facility] Comment on above: Performed By: #### F T4 #### [facility] [address] [address] [address] Benito Schwartz TSH RANGE SEE BELOW Normal [facility] Comment on above: Result Comment: <0.3 4 UIU/ml HYPERTHYROID 0.34-5.60 UIU/ml EUTHYROID >5.60 UIU/ml HYPOTHYROID Performed By: #### F T4 #### [facility] [address] [place], [place] [address] Dr. Benito Schwartz US THYROIDon 03-04-2022 US [...] MALENA RIOS Date: 2022-03-04 13:56 Normal [facility] - Chemistry and C hemistry - challengeOrdered By: Enrrique Mckeon on 02-22-2022 Natriuretic peptide B (Bld) [Mass/Vol] 251.0 pg/mL High 5-100 [facility] No Panel InformationOrdered By: Enrrique Hernandezcker on 02-22-2022 251.0 pg/mL High 5-100 [facility] TSH DL <= 0.005 mIU/L QnOrde red By: Enrrique Mckeon on 02-22-2022 TSH Qn m[IU]/L Low 0.45-5.33 [facility] TSH Qn Serum or plasma thyroid stimulating hormone (TSH) measurement by high sensitivity met Low 0.45-5.33 [facility] Coding Summaryon 07-08-2021 Coding Summary HTMLBase 64 SlwaglzpTSc0jNh+PGhl YWQ+UX0QBYNlX05upQSt jE4FK0iMCM5FONNYSIKN JB2OQF4tiXP8ZVulH1Re biAv ZxgptXPfRA65ZYa1MET1 vUxaUDalnZ9jnBLkI0p0 FkVdQB02hJ98KQbdPIWp XrB3HkHgfeeqhUKf Y0iqZfHuwPXsEei+PHRh YmxlIHdpZHRoPScxMDAl QeKovFfqUX2oUz1oURVx LWNvbGxhcHNlOiBj i5faRDWzWLqiTN0rnLmi H7JluEH9UQUow9j4Ka72 dHI+BTEiHZH6uZhmCOdl m498TsUyh8qdUPZ0 jYEsASluKUR8W93sh4S2 UZAfZBXhRQA4tLW2rX7b xCoaatisE8QanQKwBlJ3 EOS5kMZryU5koCzy taijnG5xQct+V02GUS3G JWHULM5TLpv6K8XoXowz dHI+OR05LYNeWA65tUJw nRAju1qebVw0EtVr VGEiIEF4iWeqLSmgc4Xb XBMbR72lnLGgk4S9TEOg bCplgSHmQfBhdZK2uI5w VFodxkinw6wmmekh Dpisu8htpy30sK89M86z ZUpcSDLtZCR0VRIiXBOm fUquem9uhE4hNh2+IDxj o4ovt3btoIf2WoSx PCWxtfYbcRedJBN4e0Ym Vt86J0ZbxFdwu1PvDra8 xq78xNHqp8F5bWZ9VDkg SXAvbT4dTChzRkN8 DTUiGnAxuR50eIWsHXkh Tu1saNxeuLqaOP4sGJVk bzcpPHFxqL7dLUNhqSVp kEhtTX5rGDFguyxg m471SgDbIOF6LFWmsHSh B8EoeN3vMrHtHWIaKIYw B0UiwREvQDzfO599STko JuF4YCNdhlBnI4Bc FOGdlHafEwO3g9M2Ky2A g2KeoojqZLY0FSmwDRS4 OrMtZuFmZgQ2Y4GzTcb7 RXRyxVhxCH8kI1Cu BFGbkxtjrchfmOX1JUUh YREsxU52fNEiTGpmWu3t l8S6z351BWOpNOFnpX82 Xl1xpEvwUTCxbNPW sH3cunrbp4beunbdBaBo QGSnSQh5FSr8LPPxsVka RoMnVTH0KjJ5RUM5pKFl yM1tyPgxjiwfuM4n Oyc+U61kpM9qSWH4XZF4 cjerDSHnxfPcOE71LB41 V6WiBrqzbKSwsOA+PGRp kmMnuGkjKA9oWdGr t7mmv5TeHEqoT2BdBCYb QRpoWvo1ETBxYHF0vXX4 pJ2qTWFpGNqiy2K9tJB3 U3MkmhMudy0kq6wk JYMvQDugA80pgPKub3T5 FCNpsFT8HQNupYttNpAh kU87Pir+ZVMtnOvpc0Ri Xlwqo4mrx1yibGz4 IjMwJSIgdmFsaWduPSJ0 i0HmKo39U63kXVebPFCa CTGlRZEaLMPdiPjakx4w xA9jHy6+PGNvbCB3 vNR7gV4oLKXwLoN6MPrh R465AyGyyRDuXmkhb4xa g0xzoMn4RrQlKIEyfvTp fPcbUWD6q0UdBl02 Y56pDGrgQQWjAFMuKQTq UNYzrYxhyd9uxH3vSq5+ WN7sp9nkpn64jR96xRO+ SVJdJCV1fAjgWTdx VEWwuK9rAAmtNzZ9DOOb JuNeyR32vJZvZWdpNs7z nShoxMkaMJ8eWAFlssem e999FmFdm5bpIDUs iCVxIStiAFK0J19ya1I7 BYBxGCZvWYD4fTT5oD6w bGlnbjogbGVmdDsgdmVy jPnmUUfvMQfrM484 IHRvcDsnPlBhdGllbnQg RaUcKNe7S4FyQar0QPUc kDijUF8thDJsOIzwJq3x iPsbaVdvLO4eHGQo lhnmq603UjOyj1etFMOd xBRzANrpZTY0K10dx5J0 IXUqDFOfEIN0vSU2bX7m bGlnbjogbGVmdDsg ovBxbWbsEYssMSkvV641 IHRvcDsnPkJpcnRoIERh rCH9VE19KG08yIKdf5F4 aPS1B6YmJMKjlzhm wmjtyKS0AFBkHKAwtC75 Gt9ivKfkSf4xAMAfDYC6 IMMwqRQzE5DvqA5rUgVa YSWxPWUyE1IweTWi NFojJ360BEozZeC4IGRl xyWtO9OaHKZgaVizPdD7 s4F0Dh3SC9V2ID74PT89 mSUxq8M0rZY4S7Cg OHBtobexhwowbOK2RHOt PULfyX39Yp1daVicUo8t ZPRyQIV0WCLmmXQiK4Si uO9sBnOzUMKzYQPz J8AztKHjDPuzY025IBfr ZuH2TUObyyOsK9GjWGPp qMqeIsT7j6P6Ez8TBGo5 JU14SZ64nJOhj3S8 gAH9J8RjRUXoeiojqjkr fTM0DKLuPJDfnT31Sk5l uCwkCw8pACSmTKO2QFYk vHPsW4FfjB1fFrCe IHMdZEQrC7SbzNWdIPyi L253PPnaOmO1CGQkkyTd E0QcKCTbaLceAjI1a2B2 Bb2BNPPnSM06JVH3 kGO1YE03OI33U0KzFutx dGFibGU+PHRhYmxlIHdp ZHRoPScxMDAlJyBzdHls SQ6tNs7hIDXiBJOz cQrtwHOdIpDfh7gqUXYz VBcgFC7kaTerA8ZvrHS2 LGYvh0p8Ue84F00nQ9Hg dXA+VFZslIN3vET9 vA0rNbHpJoP0IGkcN050 SvTilMHiKinbs2nfe1zz vPx7QgM4SIRagtSxlGjo EQW7c7VbKp84T62a IHdpZHRoPSIxNSUiIHZh kUwkqg4xsH2cVd8+PGNv iIJ7cEF0iY6eQxAwQwQ4 WWigG698IzGyeDAx Tochj2doo0xhdOh4PoNb EVEkuvAmtKreXYF5r3Ys Cz75G0ImoXfdo7XpGlf2 nn25yBDcz3A3hZD5 N5RkIFYipudpiYVqxTxg EC5vBNSpfzyqPQVdeI9h KHVpU6y9UmCfSjJ8BQpl D9ZakbW3CBLxbBJh EXuvENK9N85et3Y6WWJv ARYgWGY3mIW4gC3grYkh bjogbGVmdDsgdmVydGlj MAxkPQmgV614TMLh jUdsTIVohB4rZIKjxZBh pGkwEJ1gZWDwpkciZkRU NORJVbpsTuPBGjf1J0Ak Pgo5DZAclHdfUF1z rGFjOWpuJx1ttQuayVlv PN1nEITyqbzfXZRsmY6h RZBoiVCroLnuVD0fPXSp jfefb157YpVmYQF5 EPBffYUrM2FwvP2dQtWi CUBaDSRsY3VluHDxAXjj W786UQumEqD0LQLsmdFj E4RhCYGpxYbeRlP3 s1F3Ek5gFq3iSF0lLIZw IB52ML74hLGnr4H6mRE9 K3WrASHqoihgbjopzHA7 DCLhPODvkG94eIAc XBraTp2wo8M3z184PHXd RXAdqN48Bi5mrAcyDDAr oSKLiM8weehne9tpgqvl IjOdIKTxFXc3KHe2 HIBrsCdzCdMsSGJ6QsL5 JYV2kENsmY6neYdlpxfs rR6tBze+NzkgWWVhcnM8 B7UeAdk9RHOuoSds KQ0oaJMjBLujVl5kbBaz gRssAQ8rWQJicgcsSTBm xR6sKFZubXWhyEidNQ9m GUTitoqck618IhCo MHC1YOErgDVfQ8QqvW2e JgQsHCYqZGCmR4TeqRXk UUvuJ542MSwjJiE2XRSi gbXnL4PvYZFceBye AhL1v7F9Ro6ZEPsLEV44 UB07bIKuv2E7aAR3O0Hs TTCsjzauvohjfXM4RSVq NWRjuN47oVSpACzb Pg8ys0L7t528EOSdQCEt sR21Va9sfEooZQTedZJQ kW8qhqduw2uncjazOgKb IMGeLPe2REy2CXHt zVvzQvVmLER2QzP4TEB0 mMZdfK9lgZpmyjbanI3e Oyc+D4F6I3IcOrcvoRN+ IJ47TJXpSN70oREv sMJra0wyoZw2QzQcYMZc CRO3oEljJTvpw4GoXGSs M57brXTlp4C3LVKvzWre oAGnFmCczPF2rK6o KUmzosjpz3kspfzpRwqk j6adox58lU89N38uTLit ZHRoPSIzMCUiIHZhbGln ys9ngF5nYu7+PGNv xVG1cFK0zP9xXbCnLbQ0 XSnnM428SuAiqKAyEeba v1umf3zdnJy1BiLvOOEw frIihJfcRNZ0g5Wa Ir91C84xSLtqXVDdYFCh IRZbYSBqgYdman7ueD4r Ii8+FJ6ud8rvun99qA83 dHI+UCPjWPG2qDua MWkcUNWrrT9uGFjyKeZ4 YMLzHdAjiU31gNReARiz Dj9rgPuvjDfpTN1rLVBt chgtv286RqEdi9dw COGqfVIhPRtuLOX8W48s l9Z5GMKyOMOwENQ8lPP3 vU7sdWhwzezxaRVupQft dmVydGljYWwtYWxp B415FSFliGvhAeWaiHKe J3qntwGXXJ0rTtrkrUP+ LADmTTJ9fKjuCUbcUYGi hM9qFHApK6y3MbOy BgG8ZFrdU4IxeqU1QXJn yFVzJBApnUGCjA7lorhl v2addbmvIeIcCICcDRr7 QHy9ZIIafRmiCkNl VBI6OtH6MBM3pVRjgW4y aGxwgmitrZ6gNgr+RklO OjwvdGQ+PCXdQAT8mKro HFsqMRDbcM4pOJVl P2a7RfDeRxH8EMemY9Vg hoW1UBJejSWqYGZnvFMD xB1sibntm6ylliziXiDl XNHaFQc3LGy2COEq tGhzZpOePND4TdV4EXG3 rZYdjF1ezOvgyxabkR9o Oyc+TVJOOjwvdGQ+PHRk DNM1aAoaQElqNJPh lW4vRIAgG3g5TvSkDqY7 CGjhO0JjgtJ0QUTtqOQu ZHBlkTATkG7dfsvxo1so cjogIzAwMDAwMDt0 HZx5ZEPgsLocIqJjGKR7 DfN0FRZ6wVCekQ1skYow ugzcsU1tMbu+JFK9JAH8 IH38WC60A7YiTztk dGFibGU+PHRhYmxlIHdp ZHRoPScxMDAlJyBzdHls DF2vWb5kZJErZSRsuYsr uLCiPsPst5txEFNx ZTs (more content not included)... [facility] Provider Orderson 07-05-2021 Provider Orders [id number] [facility] Creatinine Lvlon 07-02-2021 eGFR Non AA 29 mL/min/1.73m2 Invalid Interpretation Code [facility] Comment on above: Performed By: #### [id number] #### [facility] (DEFAULT) [address] [place] [id number] eGFR AA 35 mL/min/1.73m2 Invalid Interpretation Code [facility] Comment on above: Result Comment: [employer] Specialist hilda Kidney disease could be indicated at eGFRs of less than 60 ml/min/1.73m2. Kidney Failure is indicated at less than 15 ml/min/1.73m2 Performed By: #### [id number] #### [facility] (DEFAULT) [address] [place] [id number] Creatinine [Mass/Vol] 2.19 mg/dL High 0.90-1.30 [facility] Comment on above: Performed By: #### [id number] #### [facility] (DEFAULT) [address] [place] [id number] Vital Signs Date Time Vital Sign Value Performing Clinician Facility 06-06-2025 12:59-0400 Body height 180.34 cm Yas Ball DO Work Phone: [facility] 06-06-2025 12:59-0400 Body mass index (BMI) [Ratio] 27.6 kg/m2 Yas Ball DO Work Phone: [facility] 06-06-2025 12:59-0400 Body temperature 97.8 [degF] Yas Ball DO Work Phone: [facility] 06-06-2025 12:59-0400 Body weight 89.81 kg Yas Ball DO Work Phone: [facility] 06-06-2025 12:59-0400 Diastolic blood pressure 78 mm[Hg] Yas Ball DO Work Phone: [facility] 06-06-2025 12:59-0400 Heart rate 72 /min Yas Ball DO Work Phone: [facility] 06-06-2025 12:59-0400 Respiratory rate 16 /min Yas Ball DO Work Phone: [facility] 06-06-2025 12:59-0400 SaO2% (BldA) [Mass fraction] 97 % Yas Ball DO Work Phone: [facility] 06-06-2025 12:59-0400 Systolic blood pressure 135 mm[Hg] Yas Ball DO Work Phone: [facility] 05-26-2025 10:12-0400 Body height 180.3 cm Emely Batista DPM Work Phone: [facility] 05-26-2025 10:12-0400 Body mass index (BMI) [Ratio] 27.2 kg/m2 Emely Batista DPM Work Phone: [facility] 05-26-2025 10:12-0400 Body weight 88.45 kg Emely Batista DPM Work Phone: [facility] 04-17-2025 16:15-0400 Body height 180.34 cm Yas Ball DO Work Phone: [facility] 04-17-2025 16:15-0400 Body mass index (BMI) [Ratio] 27.1 kg/m2 Yas Ball DO Work Phone: [facility] 04-17-2025 16:15-0400 Body temperature 96.9 [degF] Yas Ball DO Work Phone: [facility] 04-17-2025 16:15-0400 Body weight 88.22 kg Yas Ball DO Work Phone: [facility] 04-17-2025 16:15-0400 Diastolic blood pressure 76 mm[Hg] Yas Ball DO Work Phone: [facility] 04-17-2025 16:15-0400 Heart rate 99 /min Yas Ball DO Work Phone: [facility] 04-17-2025 16:15-0400 Respiratory rate 18 /min Yas Ball DO Work Phone: [facility] 04-17-2025 16:15-0400 SaO2% (BldA) [Mass fraction] 98 % Yas Ball DO Work Phone: [facility] 04-17-2025 16:15-0400 Systolic blood pressure 137 mm[Hg] Yas Ball DO Work Phone: [facility] 04-07-2025 09:00-0400 Body height 180.34 cm Yas Ball DO Work Phone: [facility] 04-07-2025 09:00-0400 Body mass index (BMI) [Ratio] 27.5 kg/m2 Yas Ball DO Work Phone: [facility] 04-07-2025 09:00-0400 Body weight 89.41 kg Yas Ball DO Work Phone: [facility] 04-07-2025 09:00-0400 Diastolic blood pressure 89 mm[Hg] Yas Ball DO Work Phone: [facility] 04-07-2025 09:00-0400 Heart rate 78 /min Yas Ball DO Work Phone: [facility] 04-07-2025 09:00-0400 Respiratory rate 12 /min Yas Ball DO Work Phone: [facility] 04-07-2025 09:00-0400 Systolic blood pressure 139 mm[Hg] Yas Ball DO Work Phone: [facility] 03-25-2025 13:16-0400 Body height 180.34 cm Yas Ball DO Work Phone: [facility] 03-25-2025 13:16-0400 Body mass index (BMI) [Ratio] 27.5 kg/m2 Yas Ball DO Work Phone: [facility] 03-25-2025 13:16-0400 Body weight 89.41 kg Yas Ball DO Work Phone: [facility] 03-25-2025 13:16-0400 Diastolic blood pressure 80 mm[Hg] Yas Ball DO Work Phone: [facility] 03-25-2025 13:16-0400 Heart rate 76 /min Yas Ball DO Work Phone: [facility] 03-25-2025 13:16-0400 Respiratory rate 12 /min Yas Ball DO Work Phone: [facility] 03-25-2025 13:16-0400 Systolic blood pressure 165 mm[Hg] Yas Ball DO Work Phone: [facility] 02-28-2025 12:56-0400 Body height 180.34 cm Yas Ball DO Work Phone: [facility] 02-28-2025 12:56-0400 Body mass index (BMI) [Ratio] 27.4 kg/m2 Yas Ball DO Work Phone: [facility] 02-28-2025 12:56-0400 Body weight 89.35 kg Yas Ball DO Work Phone: [facility] 02-28-2025 12:56-0400 Diastolic blood pressure 72 mm[Hg] Yas Ball DO Work Phone: [facility] 02-28-2025 12:56-0400 Heart rate 72 /min Yas Ball DO Work Phone: [facility] 02-28-2025 12:56-0400 Respiratory rate 16 /min Yas Ball DO Work Phone: [facility] 02-28-2025 12:56-0400 SaO2% (BldA) [Mass fraction] 99 % Yas Ball DO Work Phone: [facility] 02-28-2025 12:56-0400 Systolic blood pressure 156 mm[Hg] Yas Ball DO Work Phone: [facility] 02-21-2025 10:46-0400 Body height 180.3 cm Emely Batista DPM Work Phone: [facility] 02-21-2025 10:46-0400 Body mass index (BMI) [Ratio] 27.34 kg/m2 Emely Batista DPM Work Phone: [facility] 02-21-2025 10:46-0400 Body weight 88.91 kg Emely Batista DPM Work Phone: [facility] 01-28-2025 14:22-0400 Body height 180.34 cm Yas Ball DO Work Phone: [facility] 01-28-2025 14:22-0400 Body mass index (BMI) [Ratio] 27.3 kg/m2 Yas Ball DO Work Phone: [facility] 01-28-2025 14:22-0400 Body weight 88.9 kg Yas Ball DO Work Phone: [facility] 01-28-2025 14:22-0400 Diastolic blood pressure 70 mm[Hg] Yas Ball DO Work Phone: [facility] 01-28-2025 14:22-0400 Heart rate 87 /min Yas Ball DO Work Phone: [facility] 01-28-2025 14:22-0400 Respiratory rate 12 /min Yas Ball DO Work Phone: [facility] 01-28-2025 14:22-0400 Systolic blood pressure 151 mm[Hg] Yas Ball DO Work Phone: [facility] 01-20-2025 11:05-0400 Body height 180.34 cm Yas Ball DO Work Phone: [facility] 01-20-2025 11:05-0400 Body mass index (BMI) [Ratio] 27.8 kg/m2 Yas Ball DO Work Phone: [facility] 01-20-2025 11:05-0400 Body temperature 97.4 [degF] Yas Ball DO Work Phone: [facility] 01-20-2025 11:05-0400 Body weight 90.37 kg Yas Ball DO Work Phone: [facility] 01-20-2025 11:05-0400 Diastolic blood pressure 66 mm[Hg] Yas Ball DO Work Phone: [facility] 01-20-2025 11:05-0400 Heart rate 81 /min Yas Ball DO Work Phone: [facility] 01-20-2025 11:05-0400 Respiratory rate 18 /min Yas Ball DO Work Phone: [facility] 01-20-2025 11:05-0400 SaO2% (BldA) [Mass fraction] 96 % Yas Ball DO Work Phone: [facility] 01-20-2025 11:05-0400 Systolic blood pressure 108 mm[Hg] Yas Ball DO Work Phone: [facility] 01-10-2025 06:03-0400 Body temperature 98.3 [degF] Yas Ball DO Work Phone: [facility] 01-10-2025 06:03-0400 Diastolic blood pressure 66 mm[Hg] Yas Ball DO Work Phone: [facility] 01-10-2025 06:03-0400 Heart rate 69 /min Yas Ball DO Work Phone: [facility] 01-10-2025 06:03-0400 Respiratory rate 16 /min Yas Ball DO Work Phone: [facility] 01-10-2025 06:03-0400 SaO2% (BldA) [Mass fraction] 94 % Yas Ball DO Work Phone: [facility] 01-10-2025 06:03-0400 Systolic blood pressure 145 mm[Hg] Yas Ball DO Work Phone: [facility] 01-10-2025 06:00-0400 Body weight 95.2 kg Yas Ball DO Work Phone: [facility] 01-08-2025 07:58-0400 Body height 180.34 cm Yas Ball DO Work Phone: [facility] 12-30-2024 05:00-0400 Inhaled oxygen flow rate 1 L/min Yas Ball DO Work Phone: [facility] 12-27-2024 12:17-0400 Diastolic blood pressure 66 mm[Hg] Yas Ball DO Work Phone: [facility] 12-27-2024 12:17-0400 Heart rate 69 /min Yas Ball DO Work Phone: [facility] 12-27-2024 12:17-0400 Inhaled oxygen flow rate 3 L/min Yas Ball DO Work Phone: [facility] 12-27-2024 12:17-0400 Respiratory rate 18 /min Yas Ball DO Work Phone: [facility] 12-27-2024 12:17-0400 SaO2% (BldA) [Mass fraction] 99 % Yas Ball DO Work Phone: [facility] 12-27-2024 12:17-0400 Systolic blood pressure 114 mm[Hg] Yas Ball DO Work Phone: [facility] 12-27-2024 05:45-0400 Body weight 99.2 kg Yas Ball DO Work Phone: [facility] 12-27-2024 05:44-0400 Body temperature 97.9 [degF] Yas Ball DO Work Phone: [facility] 12-24-2024 13:50-0400 Body height 180.34 cm Yas Ball DO Work Phone: [facility] 12-24-2024 03:09-0400 Inhaled oxygen concentration 40 % Yas Ball DO Work Phone: [facility] 12-19-2024 08:55-0500 Body height 180.34 cm [facility] 12-19-2024 08:55-0500 Body mass index (BMI) [Ratio] 28.9 kg/m2 [facility] 12-19-2024 08:55-0500 Body weight 94 kg [facility] 12-19-2024 08:55-0500 Diastolic blood pressure 70 mm[Hg] [facility] 12-19-2024 08:55-0500 Heart rate 69 /min [facility] 12-19-2024 08:55-0500 Respiratory rate 12 /min [facility] 12-19-2024 08:55-0500 SaO2% (BldA) [Mass fraction] 96 % [facility] 12-19-2024 08:55-0500 Systolic blood pressure 124 mm[Hg] [facility] 08-08-2024 10:27-0400 Diastolic blood pressure 80 mm[Hg] Avery Syed MD Work Phone: [facility] 08-08-2024 10:27-0400 Heart rate 72 /min Avery Syed MD Work Phone: [employer] [facility] 08-08-2024 10:27-0400 Systolic blood pressure 150 mm[Hg] Avery Syed MD Work Phone: [facility] 08-08-2024 10:25-0400 Body height 180.3 cm Avery Syed MD Work Phone: [facility] 08-08-2024 10:25-0400 Body mass index (BMI) [Ratio] 30.52 kg/m2 Avery Syed MD Work Phone: [facility] 08-08-2024 10:25-0400 Body weight 99.25 kg Avery Syed MD Work Phone: [facility] 07-09-2024 10:33-0400 Diastolic blood pressure 74 mm[Hg] Sidra Elisha DO Work Phone: [facility] 07-09-2024 10:33-0400 Heart rate 70 /min Sidra Elisha DO Work Phone: [facility] 07-09-2024 10:33-0400 SaO2% (BldA) [Mass fraction] 93 % Sidra Elisha DO Work Phone: [facility] 07-09-2024 10:33-0400 Systolic blood pressure 136 mm[Hg] Sidra Elisha DO Work Phone: [facility] 04-22-2024 10:44-0400 Body height 180.34 cm DO Yas Ball Work Phone: [facility] 04-22-2024 10:44-0400 Body mass index (BMI) [Ratio] 30.2 kg/m2 DO Yas Ball Work Phone: [facility] 04-22-2024 10:44-0400 Body weight 98.14 kg DO Yas Ball Work Phone: [facility] 04-22-2024 10:44-0400 Diastolic blood pressure 69 mm[Hg] DO Yas Ball Work Phone: [facility] 04-22-2024 10:44-0400 Heart rate 73 /min DO Yas Ball Work Phone: [facility] 04-22-2024 10:44-0400 Respiratory rate 12 /min DO Yas Ball Work Phone: [facility] 04-22-2024 10:44-0400 Systolic blood pressure 135 mm[Hg] DO Yas Ball Work Phone: [facility] 03-01-2024 [id number] Body height 180.34 cm DO Yas Ball Work Phone: [facility] 03-01-2024 11:11-0400 Body mass index (BMI) [Ratio] 30.1 kg/m2 DO Yas Ball Work Phone: [facility] 03-01-2024 11:11-0400 Body temperature 98 [degF] DO Yas Ball Work Phone: [facility] 03-01-2024 [id number] Body weight 97.97 kg DO Yas Ball Work Phone: [facility] 03-01-2024 11:11-0400 Diastolic blood pressure 75 mm[Hg] DO Yas Ball Work Phone: [facility] 03-01-2024 11:11-0400 Heart rate 67 /min DO Yas Ball Work Phone: [facility] 03-01-2024 11:11-0400 Respiratory rate 18 /min DO Yas Ball Work Phone: [facility] 03-01-2024 11:11-0400 SaO2% (BldA) [Mass fraction] 95 % DO Yas Ball Work Phone: [facility] 03-01-2024 11:11-0400 Systolic blood pressure 158 mm[Hg] DO Yas Ball Work Phone: [facility] 02-08-2024 10:19-0400 Diastolic blood pressure 58 mm[Hg] Avery Syed MD Work Phone: [employer] 02-08-2024 10:19-0400 Heart rate 70 /min Avery Syed MD Work Phone: [employer] 02-08-2024 10:19-0400 Systolic blood pressure 126 mm[Hg] Avery Syed MD Work Phone: [employer] 02-08-2024 10:18-0400 Body mass index (BMI) [Ratio] 29.99 kg/m2 Avery Syed MD Work Phone: [facility] 02-08-2024 10:18-0400 Body weight 97.52 kg Avery Syed MD Work Phone: [facility] 12-18-2023 10:07-0500 Body height 180.34 cm DO Yas Ball Work Phone: [facility] 12-18-2023 10:07-0500 Body mass index (BMI) [Ratio] 30.2 kg/m2 DO Yas Ball Work Phone: [facility] 12-18-2023 10:07-0500 Body weight 98.2 kg DO Yas Ball Work Phone: [facility] 12-18-2023 10:07-0500 Diastolic blood pressure 76 mm[Hg] DO Yas Ball Work Phone: [facility] 12-18-2023 10:07-0500 Heart rate 72 /min DO Yas Ball Work Phone: [facility] 12-18-2023 10:07-0500 Respiratory rate 12 /min DO Yas Ball Work Phone: [facility] 12-18-2023 10:07-0500 Systolic blood pressure 131 mm[Hg] DO Yas Ball Work Phone: [facility] 09-01-2023 13:51-0500 Body height 180.34 cm DO Yas Ball Work Phone: [facility] 09-01-2023 13:51-0500 Body temperature 97.7 [degF] DO Yas Ball Work Phone: [facility] 09-01-2023 13:51-0500 Body weight 98.02 kg DO Yas Ball Work Phone: [facility] 09-01-2023 13:51-0500 Diastolic blood pressure 79 mm[Hg] DO Yas Ball Work Phone: [facility] 09-01-2023 13:51-0500 Heart rate 70 /min DO Yas Ball Work Phone: [facility] 09-01-2023 13:51-0500 Respiratory rate 20 /min DO Yas Ball Work Phone: [facility] 09-01-2023 13:51-0500 SaO2% (BldA) [Mass fraction] 96 % DO Yas Ball Work Phone: [facility] 09-01-2023 13:51-0500 Systolic blood pressure 147 mm[Hg] DO Yas Ball Work Phone: [facility] 08-22-2023 10:00-0500 Body height Yas Ball Other [facility] Other 08-22-2023 10:00-0500 Body mass index (BMI) [Ratio] 29.35 kg/m2 Yas Ball Other [employer] Other 08-22-2023 10:00-0500 Body weight 98.16 kg Yas Ball Other [employer] Other 08-22-2023 10:00-0500 Diastolic blood pressure 74 mm[Hg] Yas Ball Other [employer] Other 08-22-2023 10:00-0500 Respiratory rate 12 /min Yas Ball Other [employer] Other 08-22-2023 10:00-0500 Systolic blood pressure 135 mm[Hg] Yas Ball Other [employer] Other 04-20-2023 09:30-0400 Body height Yas Ball Other [employer] Other 04-20-2023 09:30-0400 Body mass index (BMI) [Ratio] 29.62 kg/m2 Yas Ball Other [employer] Other 04-20-2023 09:30-0400 Body weight 99.07 kg Yas Ball Other [employer] Other 04-20-2023 09:30-0400 Diastolic blood pressure 64 mm[Hg] Yas Ball Other [employer] Other 04-20-2023 09:30-0400 Respiratory rate 12 /min Yas Ball Other [employer] Other 04-20-2023 09:30-0400 Systolic blood pressure 113 mm[Hg] Yas Ball Other [employer] Other 12-15-2022 10:00-0500 Body height Yas Ball Other [employer] Other 12-15-2022 10:00-0500 Body mass index (BMI) [Ratio] 29.81 kg/m2 Yas Ball Other [employer] Other 12-15-2022 10:00-0500 Body weight 99.7 kg Yas Ball Other [employer] Other 12-15-2022 10:00-0500 Diastolic blood pressure 70 mm[Hg] Yas Ball Other [employer] Other 12-15-2022 10:00-0500 Respiratory rate 12 /min Yas Ball Other [employer] Other 12-15-2022 10:00-0500 Systolic blood pressure 122 mm[Hg] Yas Ball Other [employer] Other 09-02-2022 14:11-0500 Body weight 98.9 kg DO Yas Ball Work Phone: [facility] 09-02-2022 14:11-0500 Diastolic blood pressure 72 mm[Hg] DO Yas Ball Work Phone: [facility] 09-02-2022 14:11-0500 Heart rate 60 /min DO Yas Ball Work Phone: [facility] 09-02-2022 14:11-0500 Respiratory rate 20 /min DO Yas Ball Work Phone: [facility] 09-02-2022 14:11-0500 SaO2% (BldA) [Mass fraction] 96 % DO Yas Ball Work Phone: [facility] 09-02-2022 14:11-0500 Systolic blood pressure 153 mm[Hg] DO Yas Ball Work Phone: [facility] 07-21-2022 10:13-0400 Diastolic blood pressure 64 mm[Hg] DO Yas Ball Work Phone: [facility] 07-21-2022 10:13-0400 Heart rate 60 /min DO Yas Ball Work Phone: [facility] 07-21-2022 10:13-0400 Respiratory rate 16 /min DO Yas Ball Work Phone: [facility] 07-21-2022 10:13-0400 SaO2% (BldA) [Mass fraction] 95 % DO Yas Ball Work Phone: [facility] 07-21-2022 10:13-0400 Systolic blood pressure 135 mm[Hg] DO Yas Ball Work Phone: [facility] 07-21-2022 08:10-0400 Body height 180.34 cm DO Yas Ball Work Phone: [facility] 07-21-2022 08:10-0400 Body temperature 98.2 [degF] DO Yas Ball Work Phone: [facility] 07-21-2022 08:10-0400 Body weight 90.71 kg DO Yas Ball Work Phone: [facility] 06-17-2022 10:25-0400 Body temperature 98.2 [degF] DO Yas Ball Work Phone: [facility] 06-17-2022 10:25-0400 Diastolic blood pressure 58 mm[Hg] DO Yas Ball Work Phone: [facility] 06-17-2022 10:25-0400 Heart rate 62 /min DO Yas Ball Work Phone: [facility] 06-17-2022 10:25-0400 Respiratory rate 18 /min DO Yas Ball Work Phone: [facility] 06-17-2022 10:25-0400 SaO2% (BldA) [Mass fraction] 98 % DO Yas Ball Work Phone: [facility] 06-17-2022 10:25-0400 Systolic blood pressure 124 mm[Hg] DO Yas Ball Work Phone: [facility] 06-03-2022 09:55-0400 Body height 180.34 cm DO Yas Ball Work Phone: [facility] 06-03-2022 09:55-0400 Body weight 92.85 kg DO Yas Ball Work Phone: [facility] Encounters Encounter Date Encounter Type Care Provider Facility Start: 06-25-2025 ambulatory [facility] Start: 06-25-2025 Encounter for preprocedural cardiovascular examination [facility] Start: 06-06-2025 Registered Recurring Chivo Keller II DO [facility] Work Phone: Start: 06-06-2025 End: 06-06-2025 ambulatory Yas Ball DO Work Phone: [facility] Work Phone: Start: 06-06-2025 End: 06-06-2025 Patient encounter procedure Kecia Mayfield [employer] Work Phone: Start: 05-30-2025 End: 06-02-2025 External Result Encounter Chivo Keller DO Work Phone: [facility] External Department Unsolicited Start: 05-30-2025 End: 06-02-2025 External Result Encounter Chivo Keller DO Work Phone: [facility] External Department Unsolicited Start: 05-29-2025 ambulatory RON ALEJANDRE [facility] Start: 05-27-2025 End: 05-27-2025 ambulatory TRANG DEGROOT [facility] Start: 05-26-2025 End: 05-26-2025 Bamboo flowsheet Emely Batista DPM [facility] Start: 05-26-2025 End: 05-26-2025 Bamboo flowsheet Emely Batista DPM [facility] Start: 05-26-2025 End: 05-26-2025 Patient encounter procedure Emely Batista DPM Work Phone: [facility] Comment on above: Onychomycosis (Prima ry Dx); Onychodystrophy; Diabetic polyneuropathy associated with type 2 diabetes mellitus (HCC) Start: 05-26-2025 End: 05-26-2025 ambulatory Kilo Glaser OUTSIDE MACHINIST SUPER[employer]OR [facility] Comment on above: Greater trochanteric bursitis of left hip (Primary Dx); History of total hip arthroplasty, right; Left hip pain Start: 05-23-2025 End: 05-23-2025 Bamboo flowsheet Kilo Jamalink OUTSIDE MACHINIST SUPER[employer]OR [facility] Start: 05-23-2025 End: 05-23-2025 Bamboo flowsheet Kilo Brink OUTSIDE MACHINIST SUPER[employer]OR [facility] Start: 05-23-2025 End: 05-23-2025 ambulatory Kilo Brink OUTSIDE MACHINIST SUPER[employer] [facility] Comment on above: Greater trochanteric bursitis of left hip (Primary Dx); History of total hip arthroplasty, right; Left hip pain Start: 05-21-2025 End: 05-21-2025 Bamboo flowsheet Kilo Glaser OUTSIDE MACHINIST SUPERVISOR [facility] Start: 05-21-2025 End: 05-21-2025 Bamboo flowsheet Kilomicky Glaser OUTSIDE MACHINIST SUPERVISOR [facility] Start: 05-21-2025 End: 05-21-2025 ambulatory Kilo Glaser OUTSIDE MACHINIST SUPER[employer]OR [facility] Comment on above: Greater trochanteric bursitis of left hip (Primary Dx); History of total hip arthroplasty, right; Left hip pain Start: 05-19-2025 End: 05-19-2025 Bamboo flowsheet Fermin Daileyy OUTSIDE MACHINIST SUPERVISOR [facility] Start: 05-19-2025 End: 05-19-2025 Bamboo flowsheet Fermin Daileyy OUTSIDE MACHINIST SUPERVISOR [facility] Start: 05-19-2025 End: 05-19-2025 ambulatory Fermin Sánchez OUTSIDE MACHINIST SUPERVISOR [facility] Comment on above: Greater trochanteric bursitis of left hip (Primary Dx); History of total hip arthroplasty, right; Left hip pain Start: 05-16-2025 End: 05-16-2025 Bamboo flowsheet Kilo Glaser OUTSIDE MACHINIST SUPERVISOR [facility] Start: 05-16-2025 End: 05-16-2025 Bamboo flowsheet Kilo Glaser OUTSIDE MACHINIST SUPERVISOR [facility] Start: 05-16-2025 End: 05-16-2025 ambulatory Kilo Glaser OUTSIDE MACHINIST SUPER[employer]OR [facility] Comment on above: Greater trochanteric bursitis of left hip (Primary Dx); History of total hip arthroplasty, right; Left hip pain Start: 05-14-2025 End: 05-14-2025 Bamboo flowsheet Kilo Brink OUTSIDE MACHINIST SUPERVISOR [facility] Start: 05-14-2025 End: 05-14-2025 Bamboo flowsheet Kilo Brink OUTSIDE MACHINIST SUPERVISOR [facility] Start: 05-14-2025 End: 05-14-2025 ambulatory Kilomicky Glaser OUTSIDE MACHINIST SUPER[employer]OR [facility] Comment on above: Greater trochanteric bursitis of left hip (Primary Dx); History of total hip arthroplasty, right; Left hip pain Start: 05-12-2025 End: 05-12-2025 Bamboo flowsheet Fermin Aminbley OUTSIDE MACHINIST SUPERVISOR [facility] Start: 05-12-2025 End: 05-12-2025 Bamboo flowsheet Ferminmicha Aminbley OUTSIDE MACHINIST SUPERVISOR [facility] Start: 05-12-2025 End: 05-12-2025 ambulatory Fermin Daileyy OUTSIDE MACHINIST SUPERVISOR [facility] Comment on above: Greater trochanteric bursitis of left hip (Primary Dx); History of total hip arthroplasty, right; Left hip pain Start: 05-09-2025 End: 05-09-2025 Bamboo flowsheet Fermin Daileyy OUTSIDE MACHINIST SUPERVISOR [facility] Start: 05-09-2025 End: 05-09-2025 Bamboo flowsheet Fermin Aminbley OUTSIDE MACHINIST SUPERVISOR [facility] Start: 05-09-2025 End: 05-09-2025 ambulatory Fermin Daileyy OUTSIDE MACHINIST SUPER[employer] [facility] Comment on above: Greater trochanteric bursitis of left hip (Primary Dx); History of total hip arthroplasty, right; Left hip pain Start: 05-07-2025 End: 05-07-2025 Bamboo flowsheet Fermin Daileyy OUTSIDE MACHINIST SUPER[facility]OR [facility] Start: 05-07-2025 End: 05-07-2025 Bamboo flowsheet Fermin Aminbley OUTSIDE MACHINIST SUPER[facility]OR [facility] Start: 05-07-2025 End: 05-07-2025 ambulatory Fermin Daileyy OUTSIDE MACHINIST SUPER[facility] [facility] Comment on above: Greater trochanteric bursitis of left hip (Primary Dx); History of total hip arthroplasty, right; Left hip pain Start: 05-05-2025 End: 05-05-2025 Bamboo flowsheet Fermin Aminbley OUTSIDE MACHINIST SUPERVISOR [facility] Start: 05-05-2025 End: 05-05-2025 Bamboo flowsheet Ferminmicha Aminbley OUTSIDE MACHINIST SUPERVISOR [facility] Start: 05-05-2025 End: 05-05-2025 ambulatory Fermin Aminbley OUTSIDE MACHINIST SUPERVISOR [facility] Comment on above: Greater trochanteric bursitis of left hip (Primary Dx); History of total hip arthroplasty, right; Left hip pain Start: 2025 End: 2025 Bamboo flowsheet Fermin Sánchez OUTSIDE MACHINIST SUPERVISOR [facility] Start: 2025 End: 2025 Bamboo flowsheet Fermin Sánchez OUTSIDE MACHINIST SUPERVISOR [facility] Start: 2025 End: 2025 ambulatory Fermin Sánchez OUTSIDE MACHINIST SUPERVISOR [facility] Comment on above: Greater trochanteric bursitis of left hip (Primary Dx); History of total hip arthroplasty, right; Left hip pain Start: 04-30-2025 End: 04-30-2025 Bamboo flowsheet Kilo Brink OUTSIDE MACHINIST SUPERVISOR [facility] Start: 04-30-2025 End: 04-30-2025 Bamboo flowsheet Kilo Brink OUTSIDE MACHINIST SUPERVISOR [facility] Start: 04-30-2025 End: 04-30-2025 ambulatory Kilo Brink OUTSIDE MACHINIST SUPERVISOR [facility] Comment on above: Greater trochanteric bursitis of left hip (Primary Dx); History of total hip arthroplasty, right; Left hip pain Start: 04-29-2025 End: 04-29-2025 ambulatory Yas Ball DO Work Phone: [facility] Work Phone: Start: 04-29-2025 End: 04-29-2025 Patient encounter procedure Walker Soria MD -[facility] Work Phone: Start: 04-28-2025 End: 04-28-2025 Bamboo flowsheet Kilo Brink OUTSIDE MACHINIST SUPERVISOR [facility] Start: 04-28-2025 End: 04-28-2025 Bamboo flowsheet Kilo Brink OUTSIDE MACHINIST SUPERVISOR [facility] Start: 04-28-2025 End: 04-28-2025 ambulatory Kilo Brink OUTSIDE MACHINIST SUPERVISOR [facility] Comment on above: Greater trochanteric bursitis of left hip (Primary Dx); History of total hip arthroplasty, right; Left hip pain Start: 04-25-2025 End: 04-25-2025 Bamboo flowsheet Kilo Brink OUTSIDE MACHINIST SUPERVISOR [facility] Start: 04-25-2025 End: 04-25-2025 Bamboo flowsheet Kilo Brink OUTSIDE MACHINIST SUPERVISOR [facility] Start: 04-25-2025 End: 04-25-2025 ambulatory Kilo Brink OUTSIDE MACHINIST SUPERVISOR [facility] Comment on above: Greater trochanteric bursitis of left hip (Primary Dx); History of total hip arthroplasty, right; Left hip pain Start: 04-23-2025 End: 04-23-2025 Bamboo flowsheet Fermin Sánchez OUTSIDE MACHINIST SUPERVISOR [facility] Start: 04-23-2025 End: 04-23-2025 Bamboo flowsheet Fermin Sánchez OUTSIDE MACHINIST SUPERVISOR [facility] Start: 04-23-2025 End: 04-23-2025 ambulatory Fermin Sánchez OUTSIDE MACHINIST SUPERVISOR [facility] Comment on above: Greater trochanteric bursitis of left hip (Primary Dx); History of total hip arthroplasty, right; Left hip pain Start: 04-21-2025 End: 04-21-2025 Bamboo flowsheet Fermin Sánchez OUTSIDE MACHINIST SUPERVISOR [facility] Start: 04-21-2025 End: 04-21-2025 Bamboo flowsheet Fermin Sánchez OUTSIDE MACHINIST SUPERVISOR [facility] Start: 04-21-2025 End: 04-21-2025 ambulatory Fermin Sánchez OUTSIDE MACHINIST SUPERVISOR [facility] Comment on above: Greater trochanteric bursitis of left hip (Primary Dx); History of total hip arthroplasty, right; Left hip pain Start: 04-17-2025 End: 04-17-2025 Patient encounter procedure Zahida Flowers MD -[facility] Work Phone: Start: 04-17-2025 End: 04-17-2025 Bamboo flowsheet Kilo Glaser OUTSIDE MACHINIST SUPERVISOR [facility] Start: 04-17-2025 End: 04-17-2025 Bamboo flowsheet Kilo Glaser OUTSIDE MACHINIST SUPERVISOR [facility] Start: 04-17-2025 End: 04-17-2025 ambulatory Kilo Glaser OUTSIDE MACHINIST SUPERVISOR [facility] Comment on above: Greater trochanteric bursitis of left hip (Primary Dx); History of total hip arthroplasty, right; Left hip pain Start: 04-15-2025 End: 04-15-2025 ambulatory Kenny Aldana PT Work Phone: [facility] Comment on above: Greater trochanteric bursitis of left hip (Primary Dx); History of total hip arthroplasty, right; Left hip pain Start: 04-14-2025 End: 04-14-2025 ambulatory [facility] Start: 04-14-2025 End: 04-14-2025 Bamboo flowsheet Kilo Glaser OUTSIDE MACHINIST SUPERVISOR [facility] Start: 04-14-2025 End: 04-14-2025 Bamboo flowsheet Kilo Glaser OUTSIDE MACHINIST SUPERVISOR [facility] Start: 04-14-2025 End: 04-14-2025 ambulatory Kilo Glaser OUTSIDE MACHINIST SUPERVISOR [facility] Comment on above: Greater trochanteric bursitis of left hip (Primary Dx); History of total hip arthroplasty, right; Left hip pain Start: 04-11-2025 End: 04-11-2025 Bamboo flowsheet Kilo Glaser OUTSIDE MACHINIST SUPERVISOR [facility] Start: 04-11-2025 End: 04-11-2025 Bamboo flowsheet Kilo Glaser OUTSIDE MACHINIST SUPERVISOR [facility] Start: 04-11-2025 End: 04-11-2025 ambulatory Kilo Glaser OUTSIDE MACHINIST SUPERVISOR [facility] Comment on above: Greater trochanteric bursitis of left hip (Primary Dx); History of total hip arthroplasty, right; Left hip pain Start: 04-09-2025 End: 04-09-2025 Bamboo flowsheet Fermin Daileyy OUTSIDE MACHINIST SUPERVISOR [facility] Start: 04-09-2025 End: 04-09-2025 Bamboo flowsheet Fermin Aminbley OUTSIDE MACHINIST SUPERVISOR [facility] Start: 04-09-2025 End: 04-09-2025 ambulatory Fermin Daileyy OUTSIDE MACHINIST SUPERVISOR [facility] Comment on above: Greater trochanteric bursitis of left hip (Primary Dx); History of total hip arthroplasty, right; Left hip pain Start: 04-08-2025 Non-patient / Non-visit Zahida Flowers MD -[facility] Work Phone: Start: 04-07-2025 End: 04-07-2025 ambulatory Fermin Daileyy OUTSIDE MACHINIST SUPERVISOR [facility] Comment on above: Greater trochanteric bursitis of left hip (Primary Dx); History of total hip arthroplasty, right; Left hip pain Start: 04-07-2025 End: 04-07-2025 Bamboo flowsheet Ferminmicha Aminbley OUTSIDE MACHINIST SUPERVISOR [facility] Start: 04-07-2025 End: 04-07-2025 Bamboo flowsheet Fermin Sánchez OUTSIDE MACHINIST SUPERVISOR [facility] Start: 04-07-2025 ambulatory [facility] Start: 04-07-2025 End: 04-07-2025 Patient encounter procedure Yas Linda DO -[facility] Work Phone: Start: 04-04-2025 End: 04-04-2025 Bamboo flowsheet Kilo Brink OUTSIDE MACHINIST SUPERVISOR [facility] Start: 04-04-2025 End: 04-04-2025 Bamboo flowsheet Kilo Brink OUTSIDE MACHINIST SUPERVISOR [facility] Start: 04-04-2025 End: 04-04-2025 ambulatory Kilo Glaser OUTSIDE MACHINIST SUPERVISOR [facility] Comment on above: Greater trochanteric bursitis of left hip (Primary Dx); History of total hip arthroplasty, right; Left hip pain Start: 04-02-2025 End: 04-02-2025 Bamboo flowsheet Kilo Berryink OUTSIDE MACHINIST SUPERVISOR [facility] Start: 04-02-2025 End: 04-02-2025 Bamboo flowsheet Kilo Brink OUTSIDE MACHINIST SUPERVISOR [facility] Start: 04-02-2025 End: 04-02-2025 ambulatory Kilo Glaser OUTSIDE MACHINIST SUPERVISOR [facility] Comment on above: Greater trochanteric bursitis of left hip (Primary Dx); History of total hip arthroplasty, right; Left hip pain Start: 03-31-2025 End: 03-31-2025 Bamboo flowsheet Kenny Aldana PT Work Phone: [facility] Start: 03-31-2025 End: 03-31-2025 Bamboo flowsheet Kenny Aldana PT Work Phone: [facility] Start: 03-31-2025 End: 03-31-2025 ambulatory Kenny Aldana PT Work Phone: [facility] Comment on above: Greater trochanteric bursitis of left hip (Primary Dx); History of total hip arthroplasty, right; Left hip pain Start: 03-28-2025 End: 03-28-2025 Bamboo flowsheet Kilo Brink OUTSIDE MACHINIST SUPERVISOR [facility] Start: 03-28-2025 End: 03-28-2025 Bamboo flowsheet Kilo Glaser OUTSIDE MACHINIST SUPERVISOR [facility] Start: 03-28-2025 End: 03-28-2025 ambulatory Kilo Glaser OUTSIDE MACHINIST SUPERVISOR [facility] Comment on above: Greater trochanteric bursitis of left hip (Primary Dx); History of total hip arthroplasty, right; Left hip pain Start: 03-26-2025 End: 03-26-2025 Bamboo flowsheet Sherif Almodovar OUTSIDE MACHINIST SUPERVISOR [facility] Start: 03-26-2025 End: 03-26-2025 Bamboo flowsheet Sherif Almodovar OUTSIDE MACHINIST SUPERVISOR [facility] Start: 03-26-2025 End: 03-26-2025 ambulatory Sherif Almodovar OUTSIDE MACHINIST SUPERVISOR [facility] Comment on above: Greater trochanteric bursitis of left hip (Primary Dx); History of total hip arthroplasty, right; Left hip pain Start: 03-25-2025 End: 03-25-2025 ambulatory Yas Linda DO Work Phone: [facility] Work Phone: Start: 03-25-2025 End: 03-25-2025 Patient encounter procedure Yas Maddi DO -[facility] Work Phone: Start: 03-25-2025 End: 03-25-2025 Yas Ball DO Work Phone: [facility] Work Phone: Start: 03-25-2025 End: 03-25-2025 ambulatory TRANG DEGROOT [facility] Start: 03-24-2025 End: 03-24-2025 ambulatory Fermin Aminlorena OUTSIDE MACHINIST SUPERVISOR [facility] Comment on above: Greater trochanteric bursitis of left hip (Primary Dx); History of total hip arthroplasty, right; Left hip pain Start: 03-24-2025 End: 03-24-2025 Bamboo flowsheet Fermin Amintarahy OUTSIDE MACHINIST SUPERVISOR [facility] Start: 03-24-2025 End: 03-24-2025 Bamboo flowsheet Fermin Daileyy OUTSIDE MACHINIST SUPERVISOR [facility] Start: 03-21-2025 End: 03-21-2025 Bamboo flowsheet Kilo Glaser OUTSIDE MACHINIST SUPERVISOR [facility] Start: 03-21-2025 End: 03-21-2025 Bamboo flowsheet Kilo Glaser OUTSIDE MACHINIST SUPERVISOR [facility] Start: 03-21-2025 End: 03-21-2025 ambulatory Kilo Glaser OUTSIDE MACHINIST SUPERVISOR [facility] Comment on above: Greater trochanteric bursitis of left hip (Primary Dx); History of total hip arthroplasty, right; Left hip pain Start: 03-19-2025 End: 03-19-2025 ambulatory Kenny Bee Emilyollie PT Work Phone: [facility] Comment on above: Greater trochanteric bursitis of left hip (Primary Dx); History of total hip arthroplasty, right; Left hip pain Start: 03-19-2025 End: 03-19-2025 Bamboo flowsashu Cox Cristal Diazollie PT Work Phone: [facility] Start: 03-19-2025 End: 03-19-2025 Bamboo flowsashu Bee Emilyollie PT Work Phone: [facility] Start: 03-04-2025 ambulatory [facility] Start: 02-28-2025 End: 02-28-2025 External Result Encounter Chivo Keller DO Work Phone: [facility] External Department Unsolicited Start: 02-28-2025 End: 02-28-2025 External Result Encounter Chivo Keller DO Work Phone: [facility] External Department Unsolicited Start: 02-28-2025 Registered Recurring Chivo Keller II [facility] Work Phone: Start: 02-28-2025 Yas Linda DO Work Phone: [facility] [place] [facility] Work Phone: Start: 02-28-2025 End: 02-28-2025 Patient encounter procedure Chivo Keller II [facility] Work Phone: Start: 02-28-2025 End: 02-28-2025 Yas Ball DO Work Phone: [facility] Work Phone: Start: 02-25-2025 End: 02-25-2025 ambulatory Yas Ball DO Work Phone: [facility] Work Phone: Start: 02-25-2025 End: 02-25-2025 Patient encounter procedure Walker Soria MD -[facility] Work Phone: Start: 02-25-2025 End: 02-25-2025 Yas Ball DO Work Phone: [facility] Physician [facility] Work Phone: Start: 02-24-2025 End: 02-25-2025 External Result Encounter Chivo Lynda Keller DO Work Phone: [facility] External Department Unsolicited Start: 02-24-2025 End: 02-25-2025 External Result Encounter Chivo Lynda Keller DO Work Phone: [facility] External Department Unsolicited Start: 02-24-2025 Yas Ball DO [facility]: [facility] [place] [facility] Work Phone: Start: 02-21-2025 End: 02-21-2025 Bamboo flowsheet Emely Batista DPM Work Phone: [facility] Start: 02-21-2025 End: 02-21-2025 Bamboo flowsheet Emely Batista DPM [facility] Phone[facility] Start: 02-21-2025 End: 02-21-2025 Office outpatient new 30 minutes Emely Batista DPM Work Phone: [facility] Comment on above: Diabetic polyneuropa thy associated with type 2 diabetes mellitus (CMS/HCC) (Primary Dx); Onychodystrophy; Onychomycosis Start: 02-21-2025 End: 02-21-2025 ambulatory EMELY BATISTA Not Available Start: 02-20-2025 Non-patient / Non-visit Yas Yoav pedroza DO -[facility] Work Phone: Start: 02-20-2025 Yas Ball DO Work Phone: [facility] Work Phone: Start: 01-28-2025 End: 01-28-2025 ambulatory Yas Ball DO Work Phone: [facility] Work Phone: Start: 01-28-2025 End: 01-28-2025 Patient encounter procedure Yas Linda DO -[facility] Work Phone: Start: 01-28-2025 End: 01-28-2025 Yas Ball DO Work Phone: [facility] Work Phone: Start: 01-28-2025 End: 01-28-2025 ambulatory [facility] Start: 01-27-2025 End: 01-27-2025 Telephone encounter Connie Dunham CMA [facility] Start: 01-23-2025 ambulatory [facility] Start: 01-20-2025 End: 01-20-2025 ambulatory Yas Ball DO Work Phone: [facility] Work Phone: Start: 01-20-2025 End: 01-20-2025 Patient encounter procedure Zahida Flowers MD -[facility] Work Phone: Start: 01-20-2025 End: 01-20-2025 Yas Ball DO Work Phone: [facility] Work Phone: Start: 01-16-2025 End: 01-16-2025 ambulatory Yas Ball DO Work Phone: [facility] Work Phone: Start: 01-16-2025 End: 01-16-2025 Yas Ball DO Work Phone: [facility] Work Phone: Start: 01-14-2025 End: 01-14-2025 Yas Ball DO Work Phone: [facility] Work Phone: Start: 01-14-2025 End: 01-14-2025 ambulatory Yas Ball DO Work Phone: [facility] Work Phone: Start: 01-10-2025 Yas Ball DO Work Phone: [facility] Work Phone: Start: 01-06-2025 Yas Ball DO Work Phone: [facility] Work Phone: Start: 01-04-2025 Yas Ball DO Work Phone: [facility] Work Phone: Start: 01-03-2025 Yas Ball DO Work Phone: [facility] G[facility] Work Phone: Start: 12-30-2024 Yas Ball DO Work Phone: [facility] Work Phone: Start: 12-28-2024 Yas Ball DO Work Phone: [facility] Work Phone: Start: 12-27-2024 End: 01-10-2025 Yas Ball DO Work Phone: [facility] [place] [facility] Work Phone: Start: 12-27-2024 End: 01-10-2025 Evaluation and management of inpatient Yas Ball DO Work Phone: [facility] [place] [facility] Work Phone: Start: 12-26-2024 [facility] Start: 12-25-2024 Non-patient / Non-visit Benjam in Ball DO Work Phone: [facility] Physician [facility] Work Phone: Start: 12-25-2024 Yas Ball DO Work Phone: [facility] Work Phone: Start: 12-24-2024 Non-patient / Non-visit Benjam in Ball DO Work Phone: [facility] Work Phone: Start: 12-24-2024 Yas Ball DO Work Phone: [facility] Work Phone: Start: 12-23-2024 Non-patient / Non-visit Benjam in Ball DO Work Phone: [facility] Orthopedics Work Phone: Start: 12-23-2024 Yas Ball DO Work Phone: [facility] Physician [facility] Work Phone: Start: 12-22-2024 Non-patient / Non-visit Benjam in Ball DO Work Phone: [facility] Cardiology Work Phone: Start: 12-22-2024 Yas Ball DO Work Phone: [facility] Work Phone: Start: 12-22-2024 Yas Ball DO Work Phone: [facility]ician [facility] Work Phone: Start: 12-21-2024 End: 12-27-2024 Yas Ball DO Work Phone: [facility] Work Phone: Start: 12-21-2024 End: 12-27-2024 Evaluation and management of inpatient Yas Ball DO Work Phone: [facility] Work Phone: Start: 12-21-2024 Non-patient / Non-visit Benjam in Ball DO Work Phone: [facility] Physician [facility] Work Phone: Start: 12-21-2024 Yas Ball DO Work Phone: [facility] Work Phone: Start: 12-19-2024 End: 12-19-[address] [facility] Work Phone: Start: 12-19-2024 End: 12-19-2024 Patient encounter procedure [facility] Work Phone: Start: 12-19-2024 End: 12-19-2024 Yas Ball DO Work Phone: 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 (Primary Dx) Start: 11-20-2024 ambulatory [facility] Start: 11-13-2024 End: 11-13-2024 ambulatory ENRRIQUE [facility] Start: 11-07-2024 Non-patient / Non-visit [facility] Work Phone: Start: 11-07-2024 Yas Linda DO Work Phone: [facility] Work Phone: Start: 10-29-2024 ambulatory [facility] Start: 10-17-2024 ambulatory [facility] Start: 10-17-2024 End: 10-17-2024 ambulatory [facility] Start: 10-11-2024 Non-patient / Non-visit [facility] Work Phone: Start: 10-03-2024 ambulatory [facility] Start: 09-30-2024 ambulatory [facility] Start: 09-17-2024 ambulatory [facility] Start: 09-10-2024 End: 09-10-2024 ambulatory [facility] Start: 09-02-2024 ambulatory [facility] Start: 08-22-2024 End: 08-22-2024 ambulatory Yas Linda Facility:[facility] Start: 08-21-2024 End: 08-21-2024 Bamboo flowsheet [...] MD Work Phone: [facility] Comment on above: Stage 4 chronic kidn ey disease (CMS-HCC) (Primary Dx) Start: 08-01-2024 ambulatory [facility] Start: 07-30-2024 ambulatory [facility] Start: 07-24-2024 End: 07-24-2024 ambulatory ENRRIQUE [facility] Start: 07-22-2024 ambulatory [facility] Start: 07-17-2024 ambulatory [facility] Start: 07-09-2024 End: 07-09-2024 Bamboo flowsheet Sidra Elisha DO Work Phone: [facility] Start: 07-09-2024 End: 07-09-2024 Bamboo flowsheet Sidra Elisha DO Work Phone: [facility] Start: 07-09-2024 End: 07-09-2024 Office outpatient visit 25 minutes Sidra Elisha DO Work Phone: [facility] Comment on above: MOLINA (obstructive sle ep apnea) (Primary Dx); Hypersomnia; Primary insomnia; Snoring; Hypoxia Start: 07-09-2024 End: 07-09-2024 ambulatory SIDRA ELISHA Not Available Start: 04-29-2024 End: 04-29-2024 Telephone encounter Scanning Provider External [facility] Start: 04-22-2024 End: 04-22-2024 ambulatory DO Yas Linda Work Phone: [facility] Work Phone: Start: 04-22-2024 End: 04-22-2024 Patient encounter procedure DO Yas Ball Work Phone: [facility] Work Phone: Start: 03-01-2024 End: 03-01-2024 ambulatory DO Yas Ball Work Phone: [facility] Work Phone: Start: 03-01-2024 End: 03-01-2024 Patient encounter procedure DO Yas Linda Work Phone: [facility] Work Phone: Start: 03-01-2024 Registered Recurring DO Jeremi in Ball Work Phone: [facility] Work Phone: Start: 02-08-2024 End: 02-08-2024 Office outpatient visit 25 minutes Avery Syed MD Work Phone: [facility] Comment on above: Stage 4 chronic kidn ey disease ([facility]-HCC) (Primary Dx) Start: 02-01-2024 Non-patient / Non-visit DO Aguilar Linda Work Phone: [facility] Work Phone: Start: 01-26-2024 End: 01-26-2024 Telephone encounter Ketan Osullivan CMA [facility] Start: 12-19-2023 Non-patient / Non-visit DO Aguilar Linda Work Phone: [facility] Work Phone: Start: 12-18-2023 End: 12-18-2023 ambulatory Yas Linda Other [facility] Other Start: 12-18-2023 Telephone encounter Yas Linda [facility] Start: 12-18-2023 End: 12-18-2023 Patient encounter procedure DO Yas Linda Work Phone: [facility] Work Phone: Start: 09-29-2023 End: 09-29-2023 ambulatory Yas Linda Other [facility] Other Start: 09-29-2023 Telephone encounter Yas [facility] Start: 09-01-2023 End: 09-01-2023 ambulatory DO Yas Linda Work Phone: [facility] Work Phone: Start: 09-01-2023 End: 09-01-2023 Registered Recurring DO Yas Linda Work Phone: [facility] Work Phone: Start: 08-27-2023 End: 08-27-2023 ambulatory Yas Ball Other [facility] Other Start: 08-27-2023 Telephone encounter Yas Linda [facility] Start: 08-22-2023 End: 08-22-2023 ambulatory Yas Ball Other [facility] Other Start: 08-22-2023 Office outpatient vi sit 25 minutes Yas Maddi [facility] Start: 07-03-2023 End: 07-03-2023 ambulatory Yas Ball Other [facility] Other Start: 07-03-2023 Telephone encounter Yas Linda [facility] Start: 07-01-2023 End: 07-01-2023 ambulatory Yas Ball Other [facility] Other Start: 07-01-2023 Telephone encounter Yas Linda [facility] Start: 06-22-2023 End: 06-22-2023 ambulatory Yas Ball Other [facility] Other Start: 06-22-2023 Telephone encounter Yas Ball [facility] Start: 06-12-2023 End: 06-12-2023 ambulatory Yas Ball Other [facility] Other Start: 06-12-2023 Telephone encounter Yas Ball [facility] Start: 04-26-2023 End: 04-26-2023 ambulatory Yas Ball Other [facility] Other Start: 04-26-2023 Telephone encounter Yas Linda [facility] Start: 04-20-2023 End: 04-20-2023 ambulatory Yas Linda Other [facility] Other Start: 04-20-2023 Office outpatient vi sit 25 minutes Yas Ball [facility] Start: 03-14-2023 End: 03-14-2023 ambulatory Yas Maddi Other [facility] Other Start: 03-14-2023 Telephone encounter Yas Linda [facility] Start: 02-28-2023 End: 03-01-[address] DOCTOR EDWARDS Facility:[facility] Start: 02-15-2023 Telephone encounter Yas Linda [facility] Start: 02-15-2023 End: 02-16-[address] DOCTOR EDWARDS [facility] Other Start: 02-14-2023 End: 02-14-2023 ambulatory Yas Linda Other [facility] Other Start: 02-14-2023 Telephone encounter Yas Linda [facility] Start: 01-11-2023 End: 01-11-2023 ambulatory Yas Linda Other [facility] Other Start: 01-11-2023 Office outpatient vi sit 15 minutes Yas Linda [facility] Start: 01-02-2023 End: 01-03-2023 ambulatory AVERY SYED MD Facility:H1 Start: 12-15-2022 End: 12-15-2022 ambulatory Yas Linda Other [facility] Other Start: 12-15-2022 Patient encounter procedure Yas Linda [facility] Start: 11-16-2022 End: 11-17-[address] YAS LINDA Facility:[facility]1 Start: 11-14-2022 End: 11-14-2022 ambulatory Yas Maddi Other [facility] Other Start: 11-14-2022 Telephone encounter [facility] Start: 10-03-2022 End: 10-04-[address] YAS LINDA Facility:[facility]1 Start: 09-22-2022 End: 09-23-[address] DOCTOR EDWARDS Facility:[facility]1 Start: 09-09-2022 End: 09-10-[address] DOCTOR EDWARDS Facility:[facility]1 Start: 09-02-2022 End: 09-02-2022 ambulatory DO Yas Linda Work Phone: [facility] Work Phone: Start: 09-02-2022 End: 09-02-2022 Registered Recurring DO Yas Linda Work Phone: [facility] Start: 08-30-2022 End: 08-31-[address] YAS LINDA Facility:[facility]1 Start: 07-21-2022 End: 07-21-2022 Admission to same day surgery center DO Yas Linda Work Phone: [facility] Start: 07-21-2022 End: 07-21-2022 ambulatory DO Yas Linda Work Phone: [facility] Work Phone: Start: 07-20-2022 End: 07-21-[address] YAS LINDA Facility:[facility]1 Start: 07-19-2022 End: 07-19-2022 ambulatory DO Yas Linda Work Phone: [facility] Work Phone: Start: 07-19-2022 End: 07-19-2022 Patient encounter procedure DO Yas Maddi Work Phone: [facility] Start: 07-07-[address] ADAN Rodgers ility:[facility]1 Start: 06-21-2022 Adult health examination Gume Linda Other [facility] Other Start: 06-17-2022 Registered Recurring DO Jeremi mims Ball Work Phone: [facility] Start: 06-03-2022 End: 06-03-2022 Registered Recurring DO Yas Linda Work Phone: [facility] Start: 05-31-2022 End: 05-31-2022 Patient encounter procedure DO Yas Linda Work Phone: [facility] Start: 05-12-2022 End: 05-13-2022 ambulatory AVERY SYED MD Facility:[facility]1 Start: 05-10-2022 End: 05-11-2022 ambulatory FERMIN SANCHEZ Facility:[facility]1 Start: 04-26-2022 End: 04-27-[address] DOCTOR EDWARDS Facility:[facility]1 Start: 04-11-2022 End: 07-07-[address] YAS LINDA Facility:[facility]1 Start: 04-08-2022 End: 04-09-[address] YAS LINDA Facility:[facility]1 Start: 03-30-2022 End: 04-02-2022 Evaluation and management of inpatient GILMER SALAZAR Facility:[facility] Start: 03-25-2022 End: 03-26-2022 ambulatory ENRRIQUE MCKEON Facility:[facility]1 Start: 03-11-2022 ambulatory ENRRIQUE MCKEON Facility :[facility]1 Start: 03-06-2022 End: 03-07-2022 Evaluation and management of inpatient DR RUPINDER GRIGSBY . Facility:[facility]1 Start: 03-04-2022 End: 03-05-[address] YAS LINDA Facility:[facility]1 Start: 08-17-2021 End: 08-17-2021 Pre-procedure evaluation check Yas Linda Other [facility] Other Start: 08-15-2021 Bradycardia DO Yas Quezada ll Work Phone: [facility] Procedures Date Procedure Procedure Detail Performing Clinician Start: 05-30-2025 Carcinoembryonic antigen cea Chivo Keller DO Work Phone: Comment on above: Serial tumor marker results determined by assays using different manufacturers or methods may not be comparable. [facility] cafe worker and method: LASHELL RxEyeEL DXI, 2 SITE IMMUNOENZYMATIC SANDWICH ASSAY. Start: 05-30-2025 Carcinoembryonic antigen cea Chivo Keller DO Work Phone: Comment on above: Result Comment: Seri al tumor marker results determined by assays using different manufacturers or methods may not be comparable. [facility] cafe worker and method: LASHELL UNICEL DXI, 2 SITE IMMUNOENZYMATIC ?SANDWICH? ASSAY. PERFORMED BY: [address] [address] PATHOLOGIST PIPE CONNECTOR LOGAN TAYLOR M.D. Performed By: #### R ENAL, CBC #### [address] Start: 05-30-2025 Complete blood count with white cell differential, automated Chivo Keller DO Work Phone: Start: 05-30-2025 ERYTHROPOETIN (EPO), SERUM Chivo Keller DO Work Phone: Start: 05-30-2025 Measurement of carcinoembryonic antigen in body fluid specimen Yas Linda DO Work Phone: Comment on above: Serial tumor marker results determined by assays using different manufacturers or methods may not be comparable.[facility] cafe worker and method:2CODE OnlineEL DXI, 2 SITE IMMUNOENZYMATIC SANDWICH ASSAY. Start: 02-28-2025 Complete blood count with white cell differential, automated Chivo Keller DO Work Phone: Start: 02-25-2025 Plain x-ray of pelvi s and lower extremity Yas Linda DO Work Phone: Start: 02-24-2025 Carcinoembryonic antigen cea Chivo Keller DO Work Phone: Comment on above: Serial tumor marker results determined by assays using different manufacturers or methods may not be comparable. [facility] [employer] cafe worker and method: 2CODE OnlineEL DXI, 2 SITE IMMUNOENZYMATIC SANDWICH ASSAY. Start: 02-24-2025 Carcinoembryonic antigen cea Chivo Keller DO Work Phone: Comment on above: Result Comment: Seri al tumor marker results determined by assays using different manufacturers or methods may not be comparable. [facility] cafe worker and method: LASHELL UNICEL DXI, 2 SITE IMMUNOENZYMATIC ?SANDWICH? ASSAY. PERFORMED BY: [facility] [address] [place] [place] [address] PATHOLOGIST PIPE CONNECTOR KRISTEL LU M.D. Performed By: #### R ENAL, CBC #### [address] Start: 02-24-2025 ERYTHROPOETIN (EPO), SERUM Chivo Keller DO Work Phone: Start: 02-24-2025 Measurement of carcinoembryonic antigen in body fluid specimen Yas Linda DO Work Phone: Comment on above: Serial tumor marker results determined by assays using different manufacturers or methods may not be comparable.[facility] cafe worker and method:LASHELL UNICEL DXI, 2 SITE IMMUNOENZYMATIC SANDWICH ASSAY. Start: 02-24-2025 CT of abdomen and pe lvis without contrast Yas Linda DO Work Phone: Start: 02-24-2025 CT of chest without contrast Yas Ball DO Work Phone: Start: 01-14-2025 Plain X-ray of right hip Yas Linda DO Work Phone: Start: 01-02-2025 Screening for occult blood in feces Yas Linda DO Work Phone: Start: 12-31-2024 Antibody screen Shannon n Maddi Comment on above: Order Comment: Trans fuse now? Y Number of units to transfuse now? 2 Transfuse now? Y Number of units to transfuse now? 1 Transfuse now? Y Number of units to transfuse now? 1 Transfuse now? Y Number of units to transfuse now? 1 Result Comment: PERF ORMED BY: [facility] [address] [place] [address] PATHOLOGIST PIPE CONNECTOR KRISTEL LU M.D. 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 Y Number of units to transfuse now? 1 Transfuse now? Y Number of units to transfuse now? 1 Result Comment: PERF ORMED BY: [facility] [address] [place] [place] [address] PATHOLOGIST PIPE CONNECTOR KRISTEL LU M.D. Start: 02-22-2024 Serum immunofixation Be njamin Ball DO Work Phone: Comment on above: No monoclonality det ected. Start: 02-22-2024 CT of abdomen and pe lvis without contrast DO Yas Ball Work Phone: Start: 02-22-2024 CT of chest without contrast DO Yas Ball Work Phone: Start: 08-30-2023 CT of abdomen and pe lvis without contrast DO Yas Ball Work Phone: Start: 08-30-2023 CT of chest without contrast DO Yas Ball Work Phone: Start: 02-28-2023 CT of abdomen and pe lvis without contrast DO Yas Ball Work Phone: Start: 02-28-2023 CT of chest without contrast DO Yas Ball Work Phone: Start: 01-02-2023 PSA screening FERMIN JADE Comment on above: Performed By: #### F T4, PSASC #### [facility] [address] [place] [address] Dr. Benito Schwartz Start: 08-31-2022 CT of abdomen and pe lvis without contrast DO Yas Ball Work Phone: Start: 08-31-2022 CT of chest without contrast DO Yas Ball Work Phone: Start: 07-21-2022 Colonoscopy DO Benjami n Ball Work Phone: Start: 05-31-2022 CT of abdomen and pe lvis without contrast DO Yas Ball Work Phone: Start: 05-31-2022 CT of chest without contrast DO Yas Ball Work Phone: Start: 02-22-2022 Computed tomography of abdomen and pelvis with contrast DO Yas Ball Work Phone: Start: 02-22-2022 CT of thorax with contrast DO Yas Ball Work Phone: Start: 05-19-2018 Laboratory test resu lt abnormal Yas Ball Other Start: 04-25-2017 Screening for malign ant neoplasm of colon Yas ClairMail Other Start: 08-24-2016 Pre-surgery evaluation Yas [facility] Other Start: 08-24-2016 Preoperative cardiov ascular examination Yas [facility] Other Start: 01-01-2015 Screening for malign ant neoplasm of prostate Yas [facility] Other Depression screening Benjami n Ball Other SARS Antigen (LFIA) DO Gume min Ball Work Phone: Screening for malign ant neoplasm of prostate Yas [facility] Other Plan of Treatment Date Care Activity Detail Author Start: 08-27-2025 End: 08-27-2025 Patient encounter procedure 08/27/2025 9:45 AM EST [facility] [address] [place] [address] Emely Batista, DPM [address] [place], [place] [id number] [facility] Start: 08-08-2025 Tobacco Screening Tobacco Screening [facility] Start: 07-07-2025 End: 07-07-2025 Patient encounter procedure 07/07/2025 10:30 AM EDT Office Visit [facility] [address] [place] [address] Elisha Sidra [address] [place] [address] [facility] Start: 06-16-[address] [facility] Start: 05-26-2025 End: 05-26-2025 ambulatory [facility] Start: 05-26-2025 End: 05-26-2025 Patient encounter procedure [facility]OD[facility] ATRY Comment on above: Arrived Start: 05-23-2025 End: 05-23-2025 ambulatory [facility] Comment on above: Arrived Start: 05-21-2025 End: 05-21-2025 ambulatory [facility] Comment on above: Arrived Start: 05-19-2025 End: 05-19-2025 ambulatory [facility] Comment on above: Arrived Start: 05-16-2025 End: 05-16-2025 ambulatory [facility] Comment on above: Arrived Start: 05-14-2025 End: 05-14-2025 ambulatory [facility] Comment on above: Greater trochanteric bursitis of left hi p (Primary Dx); History of total hip arthroplasty, right; Left hip pain Start: 05-12-2025 End: 05-12-2025 ambulatory [facility] Comment on above: Arrived Start: 05-09-2025 End: 05-09-2025 ambulatory 05/09/2025 2:30 PM EDT Treatment [facility] [address] [place] [address] Fermin Sánchez, OUTSIDE MACHINIST SUPERVISOR [facility] Start: 05-09-2025 End: 05-09-2025 ambulatory 05/09/2025 12:30 PM EDT Treatment [facility] [address] [place] [address] Fermin Sánchez PTA Arrived [facility] Comment on above: Arrived Start: 05-09-2025 End: 05-09-2025 ambulatory 05/09/2025 10:30 AM EDT Treatment [facility] [address] [facility] [address] [place] [address] Fermin Sánchez PTA [facility] Start: 05-07-2025 End: 05-07-2025 ambulatory [facility] Comment on above: Arrived Start: 05-05-2025 End: 05-05-2025 ambulatory [facility] Comment on above: Arrived Start: 2025 End: 2025 ambulatory [facility] Comment on above: Arrived Start: 04-30-2025 End: 04-30-2025 ambulatory [facility] Comment on above: Greater trochanteric bursitis of left hi p (Primary Dx); History of total hip arthroplasty, right; Left hip pain Start: 04-28-2025 End: 04-28-2025 ambulatory [facility] Comment on above: Arrived Start: 04-25-2025 End: 04-25-2025 ambulatory [facility] Comment on above: Arrived Start: 04-23-2025 End: 04-23-2025 ambulatory 04/23/2025 12:30 PM EDT Treatment [facility] [address] [facility] [address] [place] [address] Fermin Sánchez PTA [facility] Start: 04-21-2025 End: 04-21-2025 ambulatory [facility] Comment on above: Arrived Start: 04-17-2025 End: 04-17-2025 ambulatory [facility] Comment on above: Greater trochanteric bursitis of left hi p (Primary Dx); History of total hip arthroplasty, right; Left hip pain Start: 04-15-2025 End: 04-15-2025 ambulatory 04/15/2025 8:30 AM EDT Treatment [facility] [address] [place] [address] Kenny Aldana, PT [address] [facility] [address] [place] [address] [facility] Start: 04-14-2025 End: 04-14-2025 ambulatory [facility] Comment on above: Arrived Start: 04-11-2025 End: 04-11-2025 ambulatory [facility] Comment on above: Greater trochanteric bursitis of left hi p (Primary Dx); History of total hip arthroplasty, right; Left hip pain Start: 04-09-2025 End: 04-09-2025 ambulatory [facility] Comment on above: Arrived Start: 04-07-2025 End: 04-07-2025 ambulatory [facility] Comment on above: Greater trochanteric bursitis of left hi p (Primary Dx); History of total hip arthroplasty, right; Left hip pain Start: 04-04-2025 End: 04-04-2025 ambulatory [facility] Comment on above: Greater trochanteric bursitis of left hi p (Primary Dx); History of total hip arthroplasty, right; Left hip pain Start: 04-02-2025 End: 04-02-2025 ambulatory [facility] Comment on above: Arrived Start: 03-31-2025 End: 03-31-2025 ambulatory [facility] Comment on above: Arrived Start: 03-28-2025 End: 03-28-2025 ambulatory [facility] Comment on above: Arrived Start: 03-26-2025 End: 03-26-2025 ambulatory [facility] Comment on above: Arrived Start: 03-24-2025 End: 03-24-2025 ambulatory [facility] Comment on above: Greater trochanteric bursitis of left hi p (Primary Dx); History of total hip arthroplasty, right; Left hip pain Start: 03-24-2025 End: 03-24-2025 ambulatory 03/24/2025 11:30 AM EDT Treatment [facility] [address] [facility] [address] [place] [address] Kilo Glaser PTA [facility] Start: 03-21-2025 End: 03-21-2025 ambulatory [facility] Comment on above: Greater trochanteric bursitis of left hi p (Primary Dx); History of total hip arthroplasty, right; Left hip pain Start: 03-19-2025 End: 03-19-2025 ambulatory 03/19/2025 3:00 PM EDT Evaluation [facility] [address] [place] [address] Kenny Aldana, PT [address] [place] [address] Arrived [facility] Comment on above: Arrived Start: 03-05-2025 End: 03-05-2025 Clinical Support 03/05/2025 1:00 PM EDT Clinical Support [facility] [address] [place] [id number] Marilin Clay, [facility] [address] [place] [address] [facility] Start: 02-25-2025 Plain x-ray of pelvis and lower extremity [facility] Start: 02-25-2025 XR Pelvis and Hip - bilateral Views [facility] Start: 02-21-2025 End: 02-21-2025 Patient encounter procedure 02/21/2025 10:45 AM EDT Office Visit [facility] [address] [place] [id number] Emely Batista, DPCanelo [address] [place] [address] Arrived [facility] Comment on above: Arrived Start: 02-07-2025 Adult BMI Screening Adult BMI Screening [facility] Start: 02-06-2025 End: 08-08-2025 Basic metabolic 2000 panel - Serum or Plasma Basic Metabolic Panel Lab Routine Stage 4 chronic kidney disease ([facility]) Expected: 02/06/2025 (Approximate), Expires: 08/08/2025 [facility] Work Phone: Comment on above: Expected: 02/06/2025 (Approximate), Expi res: 08/08/2025 Start: 02-06-2025 End: 08-08-2025 CBC panel - Blood by Automated count CBC without diff Lab Routine Stage 4 chronic kidney disease ([facility]) Expected: 02/06/2025 (Approximate), Expires: 08/08/2025 [facility] Comment on above: Expected: 02/06/2025 (Approximate), Expi res: 08/08/2025 Start: 02-06-2025 End: 08-08-2025 Magnesium [Mass/volume] in Serum or Plasma Magnesium Lab Routine Stage 4 chronic kidney disease ([facility]) Expected: 02/06/2025 (Approximate), Expires: 08/08/2025 [facility] Comment on above: Expected: 02/06/2025 (Approximate), Expi res: 08/08/2025 Start: 02-06-2025 End: 08-08-2025 Parathyroid Hormone, intact Parathyroid Hormone, intact Lab Routine Stage 4 chronic kidney disease ([facility]) Expected: 02/06/2025 (Approximate), Expires: 08/08/2025 [facility] [employer] Comment on above: Expected: 02/06/2025 (Approximate), Expi res: 08/08/2025 Start: 02-06-2025 End: 08-08-2025 Phosphate [Mass/volume] in Serum or Plasma Phosphorus Lab Routine Stage 4 chronic kidney disease ([facility]) Expected: 02/06/2025 (Approximate), Expires: 08/08/2025 [facility] [employer] Comment on above: Expected: 02/06/2025 (Approximate), Expi res: 08/08/2025 Start: 02-06-2025 End: 08-08-2025 Protein creat ratio Protein creat ratio Lab Routine Stage 4 chronic kidney disease ([facility]) Expected: 02/06/2025 (Approximate), Expires: 08/08/2025 [facility] Comment on above: Expected: 02/06/2025 (Approximate), Expi res: 08/08/2025 Start: 01-14-2025 Plain X-ray of right hip [facility] Start: 01-14-2025 XR Hip - right 2 Views [facility] Start: 01-10-2025 [facility] Start: 01-03-2025 Referral to water inspector [facility] Start: 12-28-2024 Referral to pharmaceutical operator [facility] Start: 12-27-2024 Hospital admission [facility] Start: 12-27-2024 Referral to clinical calculation reviewer [facility] Start: 12-27-2024 [facility] Start: 12-24-2024 Referral to pharmaceutical operator [facility] Start: 12-24-2024 Referral to rehabilitation physician [facility] Start: 12-22-2024 Referral to Direct Sales Consultant [facility] Start: 12-22-2024 Hospital admission [facility] Start: 12-21-2024 Consultation [facility] Start: 12-21-2024 [facility] Start: 12-04-2024 End: 12-04-2024 Clinical Support 12/04/2024 1:00 PM EST Clinical Support [facility] [address] [place] [id number] Marilin Clay, [facility] [address] [place] [address] [facility] Start: 10-05-2024 Adult BMI Screening Adult BMI Screening [facility] Start: 08-21-2024 End: 08-21-2024 Clinical Support [facility] Comment on above: Arrived Start: 08-15-2024 End: 08-08-2025 Protein creat ratio Protein creat ratio Lab Routine Stage 4 chronic kidney disease (CMS-HCC) Expected: 08/15/2024 (Approximate), Expires: 08/08/2025 [facility] Comment on above: Expected: 08/15/2024 (Approximate), Expi res: 08/08/2025 Start: 08-08-2024 End: 08-08-2024 Patient encounter procedure 08/08/2024 10:30 AM EDT Office Visit [facility] [address] [place] [address] Avery Syed MD [address] [place] [address] [facility] Start: 07-09-2024 End: 07-09-2024 Patient encounter procedure 07/09/2024 10:30 AM EDT Office Visit [facility] [address] [place] [phone] Sidra Deleon DO [address] [place], [place] [id number] Arrived [facility] Comment on above: Arrived Start: 06-16-2024 Influenza vaccination [facility] Start: 06-02-2024 End: 01-31-2025 Basic metabolic 2000 panel - Serum or Plasma Basic Metabolic Panel Lab Routine Stage 4 chronic kidney disease ([facility]) Expected: 06/02/2024, Expires: 01/31/2025 [facility] Work Phone: Comment on above: Expected: 06/02/2024, Expires: 5 Start: 06-02-2024 End: 01-31-2025 CBC panel - Blood by Automated count CBC without diff Lab Routine Stage 4 chronic kidney disease ([facility]) Expected: 06/02/2024, Expires: 01/31/2025 [facility] Comment on above: Expected: 06/02/2024, Expires: Start: 06-02-2024 End: 01-31-2025 Magnesium [Mass/volume] in Serum or Plasma Magnesium Lab Routine Stage 4 chronic kidney disease ([facility]) Expected: 06/02/2024, Expires: 01/31/2025 [employer] [facility] Comment on above: Expected: 06/02/2024, Expires: 5 Start: 06-02-2024 End: 01-31-2025 Parathyroid Hormone, intact Parathyroid Hormone, intact Lab Routine Stage 4 chronic kidney disease ([facility]) Expected: 06/02/2024, Expires: 01/31/2025 [facility] Comment on above: Expected: 06/02/2024, Expires: Start: 06-02-2024 End: 01-31-2025 Phosphate [Mass/volume] in Serum or Plasma Phosphorus Lab Routine Stage 4 chronic kidney disease ([facility]) Expected: 06/02/2024, Expires: 01/31/2025 [facility] Comment on above: Expected: 06/02/2024, Expires: Start: 06-02-2024 End: 01-31-2025 Protein creat ratio Protein creat ratio Lab Routine Stage 4 chronic kidney disease ([facility]) Expected: 06/02/2024, Expires: 01/31/2025 [facility] Comment on above: Expected: 06/02/2024, Expires: Start: 02-08-2024 End: 02-08-2024 Patient encounter procedure 02/08/2024 10:30 AM EDT Office Visit [facility] [address] [place] [address] Avery Syed MD [address] [place] [address] [facility] Start: 11-20-2023 COVID-19 Vaccine ( season) COVID-[address] () [facility] Start: 07-21-2022 [facility] Start: 06-17-2022 Registered Recurring Colon cancer [facility] Start: 06-17-2022 [facility] Start: 06-10-2022 [facility] Start: 02-22-2022 CT abdomen pelvis w con CT abdomen pelvis w con [facility] Start: 02-22-2022 CT chest w con CT chest w con [facility] Start: 02-22-2022 [facility] Start: 07-16-2014 Pneumococcal Vaccine: 65+ Years (2 of 2 - PPSV23 or PCV20) Pneumococcal Vaccine: 65+ Years (2 of 2 - PPSV23 or PCV20) [facility] Start: 07-16-2014 Pneumococcal Vaccine: 65+ Years (2 of 2 - PPSV23) Pneumococcal Vaccine: 65+ Years (2 of 2 - PPSV23) [facility] Start: 2007 Fall Risk Screening Fall Risk Screening [facility] Start: 1992 Administration of varicella zoster vaccine Zoster (Shingles) Vaccine (1 of 2) [facility] Start: 1961 DTaP,Tdap and Td Vaccines (1 - Tdap) DTaP,Tdap and Td Vaccines (1 - Tdap) [facility] Start: 1954 Depression Screening Depression Screening [facility] Start: 1954 Tobacco Screening Tobacco Screening [facility] Start: 1942 Medicare Annual Wellness Visit Medicare Annual Wellness Visit [facility] Carcinoembryonic Ag [Mass/volume] in Serum or Plasma [facility] Work Phone: Carcinoembryonic Ag [Mass/volume] in Serum or Plasma [facility] Carcinoembryonic Ag [Mass/volume] in Serum or Plasma [facility] Comprehensive metabo lic 1999 panel - Serum or Plasma [facility] Work Phone: Comprehensive metabo lic 1999 panel - Serum or Plasma [facility] Comprehensive metabo lic 1999 panel - Serum or Plasma [facility] Comprehensive metabo lic 1999 panel - Serum or Plasma [facility] Comprehensive metabo lic 1999 panel - Serum or Plasma [facility] Comprehensive metabo lic 1999 panel - Serum or Plasma [facility] Comprehensive metabo lic 1999 panel - Serum or Plasma Comprehensive metabolic panel Lab STAT 02/24/2025 9:46 AM EDT [facility] Work Phone: Comprehensive metabo lic 1999 panel - Serum or Plasma [facility] Comprehensive metabo lic 2000 panel - Serum or Plasma Comprehensive metabolic panel Lab Routine 05/30/2025 10:59 AM EDT [facility] Work Phone: CT Abdomen and Pelvi s W contrast IV [facility] Work Phone: CT Abdomen and Pelvi s W contrast IV [facility] CT Abdomen and Pelvi s W contrast IV [facility] CT Abdomen and Pelvi s W contrast IV [facility] CT Abdomen and Pelvi s WO contrast [facility] Work Phone: CT Abdomen and Pelvi s WO contrast [facility] CT Abdomen and Pelvi s WO contrast [facility] CT Chest W contrast IV [facility] Work Phone: CT Chest W contrast IV [facility] CT Chest W contrast IV [facility] CT Chest W contrast IV [facility] CT Chest [facility] Work Phone: [facility] Chest [facility] Erythropoietin (EPO) [Units/volume] in Serum or Plasma [facility] Erythropoietin (EPO) [Units/volume] in Serum or Plasma [facility] Ferritin [Mass/volum e] in Serum or Plasma [facility] Iron and Iron bindin g capacity panel - Serum or Plasma Iron and TIBC Lab STAT 02/24/2025 9:46 AM EDT [facility] Iron and Iron bindin g capacity panel - Serum or Plasma Iron and TIBC Lab Routine 05/30/2025 10:59 AM EDT [facility] Patient Education [facility] Work Phone: Patient referral [facility] Work Phone: Renal function 1999 panel - Serum or Plasma [facility] Renal function 1999 panel - Serum or Plasma [facility] Renal function 1999 panel - Serum or Plasma [facility] End: 01-31-2025 Urinalysis Urinalysis Lab Routine Stage 4 chronic kidney disease (CMS-HCC) 1 Occurrences starting 02/08/2024 until 01/31/2025 [facility] Comment on above: 1 Occurrences starting 02/08/2024 until 01/31/2025 End: 08-08-2025 Urinalysis Urinalysis Lab Routine Stage 4 chronic kidney disease ([facility]-HCC) 1 Occurrences starting 08/08/2024 until 08/08/2025 [facility] Comment on above: 1 Occurrences starting 08/08/2024 until 08/08/2025 [facility] Immunizations Immunization Date Immunization Notes Care Provider Law griggs 07-15-2024 influenza virus vaccine, unspecified formulation Marilin Clay [facility] Work Phone: [facility] 07-11-2023 influenza virus vaccine, unspecified formulation Ketan Osullivan [facility] 07-10-2022 COVID-19 Pfizer (bivalent) Yas Linda Other [facility] 07-10-2022 COVID-19 Pfizer (Pediatric) Yas Linda Other [facility] 07-04-2022 influenza virus vaccine, split virus (incl. purified surface antigen) Yas Linda Other [employer] Other 07-04-2022 influenza virus vaccine, unspecified formulation DO Yas Linda Work Phone: [facility] 07-04-2022 influenza, high dose seasonal, preservative-free Yas Linda Other [employer] Other 02-07-2022 COVID-19 Pfizer Yas pedroza Other [facility] 02-07-2022 COVID-19 Vaccine Pfi zer - Documentation Purposes Only Yas Linda Other [facility] 07-28-2021 influenza virus vaccine, split virus (incl. purified surface antigen) Yas Linda Other [facility] [employer] Other 07-28-2021 influenza virus vaccine, unspecified formulation DO Yas [employer] Work Phone: [facility] 07-15-2021 COVID-19 mRNA, Comirnaty (Pfizer) DO Yas [employer] Work Phone: [facility] 12-03-2020 COVID-19 mRNA, Comirnaty (Pfizer) DO Yas [employer] Work Phone: [facility] 11-12-2020 COVID-19 mRNA, Comirnaty (Pfizer) DO Yas [employer] Work Phone: [facility] 06-30-2020 influenza virus vaccine, split virus (incl. purified surface antigen) Yas Linda Other [facility] Other 06-30-2020 influenza virus vaccine, unspecified formulation DO [employer] Work Phone: [facility] 07-19-2019 influenza virus vaccine, split virus (incl. purified surface antigen) Yas Linda Other [facility] Other 07-19-2019 influenza virus vaccine, unspecified formulation DO Yas Linda Work Phone: [facility] 07-17-2018 influenza virus vaccine, split virus (incl. purified surface antigen) Yas Linda Other [facility] Other 07-17-2018 influenza virus vaccine, unspecified formulation DO Yas [employer] Work Phone: [facility] 12-25-2017 diphtheria, tetanus toxoids and acellular pertussis vaccine, unspecified formulation Yas Linda Other [facility] 07-24-2017 influenza virus vaccine, split virus (incl. purified surface antigen) Yas Linda Other [facility] Other 07-24-2017 influenza virus vaccine, unspecified formulation DO [employer] Work Phone: [facility] 07-12-2016 influenza virus vaccine, split virus (incl. purified surface antigen) Yas iLnda Other [facility] [employer] Other 07-12-2016 influenza virus vaccine, unspecified formulation DO Yas Linda Work Phone: [facility] 05-26-2016 pneumococcal Conjuga te, unspecified formulation; Translations: [Need for prophylactic vaccination against Streptococcus pneumoniae (pneumococcus)] Yas Linda Other [facility] Other 05-26-2016 pneumococcal conjuga te vaccine, 13 valent Yas Linda Other [facility] 07-08-2015 influenza virus vaccine, split virus (incl. purified surface antigen) Yas Linda Other [facility] Other 07-08-2015 influenza virus vaccine, unspecified formulation DO Yas Linda Work Phone: [facility] 08-02-2013 tetanus and diphther ia toxoids, adsorbed, preservative free, for adult use (5 Lf of tetanus toxoid and 2 Lf of diphtheria toxoid) Yas Linda Other [facility] 08-02-2013 pneumococcal polysaccharide vaccine, 23 valent aYs Linda Other [facility] 07-16-2013 pneumococcal conjuga te vaccine, 13 valent Sidra Deleon DO Work Phone: [facility] 06-27-2012 tetanus and diphther ia toxoids, adsorbed, preservative free, for adult use (5 Lf of tetanus toxoid and 2 Lf of diphtheria toxoid) Yas Linda Other [facility] Payers Date Payer Category Payer Unknown AARP AARP [id number] 2022-Present [address] [place] [address] [id number] 2021 Managed Care Other (unspecified) [facility] [id number] .[id number] 2021 Private Health Insurance [id number] .[id number] .[id number] 2007 Medicare [id number] 1.13.693.2 .[id number] 1959 Medicare [id number] 1959 Self-pay [id number] 1959 Unknown [id number] 1942 Unknown [id number] 2.16.840.1.331085.3.579.2 .647 1942 Unknown [id number] 2.16.840.1.990542.3.579.2 .593 1942 Unknown [id number] 2.16.840.1.267213.3.579.2 .593 1942 Unknown [id number] 2.16.840.1.109340.3.579.2 .593 1942 Unknown [id number] 2.16.840.1.039868.3.579.2 .593 1942 Unknown [id number] 2.16.840.1.267449.3.579.2 .593 1942 Unknown [id number] 2.16.840.1.019310.3.579.2 .593 1942 Unknown [id number] 2.16.840.1.717077.3.579.2 .593 1942 Unknown [id number] 2.16.840.1.554097.3.579.2 .593 1942 Unknown [id number] 2.16.840.1.200095.3.579.2 .593 1942 Unknown [id number] 2.16.840.1.806683.3.579.2 .593 1942 Unknown [id number] 2.16.840.1.549486.3.579.2 .593 1942 Unknown [id number] 2.16.840.1.301098.3.579.2 .593 1942 Unknown [id number] 2.16.840.1.910499.3.579.2 .593 1942 Unknown [id number] 2.16.840.1.361378.3.579.2 .593 1942 Unknown [id number] 2.16.840.1.464700.3.579.2 .593 1942 Unknown [id number] 2.16.840.1.479923.3.579.2 .593 1942 Unknown [id number] 2.16.840.1.450026.3.579.2 .593 1942 Unknown [id number] 2.16.840.1.319268.3.579.2 .593 1942 Unknown [id number] 2.16.840.1.995280.3.579.2 .593 1942 Unknown [id number] 2.16.840.1.333768.3.579.2 .593 1942 Unknown [id number] 2.16.840.1.428953.3.579.2 .593 1942 Unknown [id number] 2.16.840.1.424262.3.579.2 .1258 1942 Unknown [id number] 2.16.840.1.851992.3.579.2 .1258 1942 Unknown [id number] 2.16.840.1.934243.3.579.2 .1258 1942 Unknown [id number] 2.16.840.1.945756.3.579.2 .1258 1942 Unknown [id number] 2.16.840.1.704961.3.579.2 .1258 1942 Unknown [id number] 2.16.840.1.720364.3.579.2 .1258 1942 Unknown [id number] 2.16.840.1.722327.3.579.2 .1258 1942 Unknown [id number] 2.16.840.1.233894.3.579.2 .1258 1942 Unknown [id number] 2.16.840.1.397544.3.579.2 .1258 1942 Unknown [id number] 2.16.840.1.814790.3.579.2 .1258 1942 Unknown [id number] 2.16.840.1.029916.3.579.2 .1258 1942 Unknown [id number] 2.16.840.1.725325.3.579.2 .1258 1942 Unknown [id number] 2.16.840.1.844042.3.579.2 .1258 1942 Unknown [id number] 2.16.840.1.173216.3.579.2 .1258 1942 Unknown [id number] 2.16.840.1.222613.3.579.2 .1258 1942 Unknown [id number] 2.16.840.1.216654.3.579.2 .125 1942 Unknown [id number] 2.16.840.1.891800.3.579.2 .1258 1942 Unknown [id number] 2.16.840.1.390313.3.579.2 .1258 1942 Unknown [id number] 2.16.840.1.060821.3.579.2 .1258 1942 Unknown [id number] 2.16.840.1.158941.3.579.2 .1258 1942 Unknown [id number] 2.16.840.1.015724.3.579.2 .1258 1942 Unknown [id number] 2.16.840.1.048408.3.579.2 .1258 1942 Unknown [id number] 2.16.840.1.914570.3.579.2 .1258 1942 Unknown [id number] 2.16.840.1.935188.3.579.2 .1258 1942 Unknown [id number] 2.16.840.1.837487.3.579.2 .1258 1942 Unknown [id number] 2.16.840.1.254740.3.579.2 .1258 1942 Unknown [id number] 2.16.840.1.450264.3.579.2 .1258 1942 Unknown [id number] 2.16.840.1.209713.3.579.2 .1258 1942 Unknown [id number] 2.16.840.1.696546.3.579.2 .1258 1942 Unknown [id number] 2.16.840.1.627515.3.579.2 .1258 1942 Unknown [id number] 2.16.840.1.773216.3.579.2 .1259 1942 Unknown [id number] 2.16.840.1.643493.3.579.2 .1259 1942 Unknown [id number] 2.16.840.1.834417.3.579.2 .1259 1942 Unknown [id number] 2.16.840.1.063649.3.579.2 .1259 1942 Unknown [id number] 2.16.840.1.126982.3.579.2 .1259 Unknown [id number] 2.16.840.1.888029.3.579.2 .593 Unknown [id number] 2.16.840.1.829652.3.579.2 .531 Social History Date Type Detail Facility Start: 06-03-2022 End: 01-20-2025 Tobacco smoking status KSIS Ex-smoker (finding) [facility] Start: 1940 Sex Assigned At Male [facility] Start: 07-08-2024 End: 02-21-2025 Sex Assigned At [facility] [employer] Other History of tobacco use Current smoker [facility] History of tobacco use Cigarette Smoker [facility] Start: 06-01-2023 End: 07-09-2024 Tobacco use and exposure Smokeless tobacco non-user [facility] Start: 07-09-2024 End: 02-21-2025 Alcoholic beverage intake Current drinker of alcohol (finding) [facility] Start: 07-08-2024 End: 02-21-2025 History of Social function [facility] Frequency of Alcohol Consumption Not on file [facility] How many standard drinks containing alcohol do you have on a typical day? 1 or 2 [facility] How often do you hav e 6 or more drinks on 1 occasion? Never [facility] Start: 07-08-2024 Alcohol Comment caffeine: none [facility] Start: 1940 Sex assigned at Not on file [facility] Start: 08-18-2023 Gender identity Identifies as male gender (finding) [facility] Start: 10-05-2023 End: 08-08-2024 Alcoholic beverage intake Ex-drinker (finding) [facility] Start: 05-21-2015 End: 03-25-2025 Sex Male (finding) [facility] Start: 12-25-2024 Tobacco smoking status NHIS Never smoked tobacco (finding) [facility] Start: 12-27-2024 End: 01-09-2025 SDOH Follow up SDOH Follow up [facility] Work Phone: Medical Equipment Procedure Code Equipment Code Equipment Origin al Text Equipment Identifier Dates Arthroplasty, hip, bipolar [id number] FDA Start: 12-23-2024 Arthroplasty, hip, bipolar ()[id number] FDA Start: 12-23-2024 Blood Sugar Diagnostic (Contour Next Test Strips) [...] Goals Date Patient Goal Desired Activity /State Functional Status Date Assessment Result Facility 01-10-2025 Functional status Patient at Baseline [facility] Work Phone: 12-21-2024 Functional status Patient at Baseline [facility] Work Phone: Mental Status Date Assessment Result Facility 01-10-2025 Cognitive function Patient at Baseline [facility] Work Phone: 12-21-2024 Cognitive function Patient at Baseline [facility] Work Phone: Clinical Notes 08-31-2021 to 05-27-2025 Emely Batista DPM - 05/26/2025 10:15 AM Sabi Aldana, PT - 04/15/2025 8:30 AM Sabi Aldana, PT - 03/31/2025 1:00 PM EDT Note Date & Type Note Facility 05-27-2025 Note cristo [facility] 05-27-2025 Note [place] [facility] Consult Note Reason for visit: Afib and dilated CMP. 05/27/25 Patient is here today to discuss possible ablation or watchman. Patient states he is doing well. He has fatigue. He appears to keep SR based on last device check. Not on AAD as Amio was stopped by Dr OVALLE due to thyroid issue. 09/10/24 Patient underwent [employer]-D upgrade procedure on 06/12/2023. Subsequent echocardiogram in [...] III symptoms. EKG: V pacing. Prior HPI: Delano Ren is a 85 y.o. year old with past medical history [...] infrahisian disease. He was brought back to [facility] on 02/12/2020 due to what was discussed [...] Negative for dizziness, syncope, weakness and light-headedness. (more content not included)... [facility] 05-26-2025 History of Present illness Narrative Images from the original note were not included. Subjective Patient ID: Delano Ren is a 85 y.o. male who presents for DM Foot Care (Pt is here today requesting nail care/BS: 117 A1C: ?/LV Dr. Linda 05-05-2025/SS: 08-27 ). HPI Established patient returns to clinic for diabetic foot check. Review of Systems Constitutional: Negative for activity change and appetite change. Respiratory: Negative for chest tightness and shortness of breath. Cardiovascular: Positive for leg swelling. Negative for chest pain. Musculoskeletal: Positive for arthralgias. Skin: Negative for color change and wound. Neurological: Positive for numbness. Negative for weakness. Psychiatric/Behavioral: Negative for agitation and behavioral problems. Hematological: Does not bruise/bleed easily. Endocrine: Negative for cold intolerance and heat intolerance. Allergic/Immunologic: Negative for immunocompromised state. Past medical History Past Medical History: Diagnosis Date A-fib (HCC) Chronic kidney disease, stage 4 (severe) (HCC) Colon cancer (HCC) 08/2021 COPD (chronic obstructive pulmonary disease) (HCC) Diabetes mellitus type II, controlled (HCC) Gout HTN (hypertension) Hypercholesteremia Hypothyroid Sleep apnea Medications Current Outpatient Medications: allopurinol (Zyloprim) 100 MG tablet, Take 100 mg by mouth Daily, Disp: , Rfl: Ascorbic Acid (vitamin C) 250 MG tablet, Take 250 mg by mouth Daily, Disp: , Rfl: Calcium Carbonate-Vitamin D (CALTRATE 600+D PO), Take by mouth, Disp: , Rfl: ezetimibe (Zetia) 10 MG tablet, Take 10 mg by mouth Daily, Disp: , Rfl: ferrous sulfate 325 (65 Fe) MG EC tablet, Take 325 mg by mouth in the morning and 325 mg at noon and 325 mg in the evening. Take with meals. Do not crush, chew, or split., Disp: , Rfl: Lxzxkmpuxqb-Ylhzglfjx-Yadymm (Trelegy Ellipta) 200-62.5-25 MCG/ACT aerosol powder , Inhale, Disp: , Rfl: furosemide (Lasix) 80 MG tablet, , Disp: , Rfl: hydrALAZINE (Apresoline) 100 MG tablet, Take 100 mg by mouth in the morning and 100 mg in the evening and 100 mg before bedtime., Disp: , Rfl: isosorbide dinitrate (Isordil) 10 MG tablet, Take 10 mg by mouth in the morning and 10 mg in the evening and 10 mg before bedtime., Disp: , Rfl: levothyroxine (Tirosint) 25 MCG capsule, Take by mouth in the morning. Take before meals., Disp: , Rfl: metoprolol succinate XL (Toprol-XL) 100 MG 24 hr tablet, Take 100 mg by mouth Daily Do not crush or chew., Disp: , Rfl: niacin 500 MG tablet, Take 500 mg by mouth in the morning. Take with meals., Disp: , Rfl: potassium chloride CR (Klor-Con M10) 10 MEQ ER tablet, Take 10 mEq by mouth Daily Do not crush or chew., Disp: , Rfl: rivaroxaban (Xarelto) 15 MG tablet, Take by mouth Take with food., Disp: , Rfl: amiodarone (Pacerone) 200 MG tablet, Take 200 mg by mouth in the morning., Disp: , Rfl: amLODIPine (Norvasc) 10 MG tablet, Take 10 mg by mouth Daily (Patient not taking: Reported on 05/26/2025), Disp: , Rfl: Allergies Patient has no known allergies. Past Surgical History Past Surgical History: Procedure Laterality Date CARDIAC DEFIBRILLATOR PLACEMENT CARDIAC PACEMAKER PLACEMENT CT GUIDED IMAGING FOR ABSCESS DRAIN 05/27/2021 CT GUIDED IMAGING FOR ABSCESS DRAIN HIP FRACTURE SURGERY Right 12/2024 Ball replaced Family History No family history on file. Objective Physical Exam Constitutional: General: He is not in acute distress. Comments: Presents to clinic with cane assistance. Unaccompanied. Cardiovascular: Comments: DP pulse: 2/4 PT pulse: 1/4 Skin temperature is warm to cool Edema: Moderate edema bilaterally. Pulmonary: Effort: Pulmonary effort is normal. No respiratory distress. Musculoskeletal: Cervical back: Neck supple. No rigidity. Comments: Pedal deformities: Multiple hammertoe contractures bilaterally. Skin: Capillary Refill: Capillary refill takes less than 2 seconds. Comments: 7 toenails exhibit clinical mycosis with thickened appearance, yellow/brown discoloration, crumbly texture and subungual debris. All 10 toenails elongated. Hyperkeratotic tissue: Left foot: None Right foot: None Skin is diffusely thin Hair growth: Absent Neurological: Mental Status: He is alert. Comments: Protective sensation intact at 8/10 pedal sites Vibratory sensation diminished at the 1st MTP bilaterally. Psychiatric: Mood and Affect: Mood normal. Behavior: Behavior normal. Assessment/Plan ICD-10-CM 1. Onychomycosis B35.1 2. Onychodystrophy L60.3 3. Diabetic polyneuropathy associated with type 2 diabetes mellitus (HCC) E11.42 Patient was examined and evaluated. Ten toenails were debrided in length and thickness today utilizing a nail nipper and electric bur multifocal button grinder without incident. I have discussed the importance of daily foot examinations and tight blood sugar control. We will follow up in 3 months for at risk diabetic foot evaluation. This note was created with the assistance of a speech recognition program. While intending to generate a timely document that accurately reflects the content of the visit, no guarantee can be provided that every grammatical or spelling mistake has been or will be identified or corrected. Thank you for your understanding. Emely Batista DPM documented in this encounter [facility] 04-25-2025 Note Provider called lincoln ent and d/w his regarding possible fluid retention/overload no remote device interrogation. State that he just had appointment with Dr Ortiz last week and overall is feeling fine without s/s of fluid overload. D/W them to call office for any concerns or questions- they voiced understanding. Fermin Sanchze [facility] Cardiology Available 7a-3pm via [employer] [phone] [facility] 04-15-2025 History of Present illness Narrative Images from the original note were not included. Physical Therapy Treatment Visit Patient Name: Delano Ren Today's Date: 04/15/2025 Encounter Diagnoses Name Primary? Greater trochanteric bursitis of left hip Yes History of total hip arthroplasty, right Left hip pain Visit number: 13 Timed Code Treatment: 53 minutes Total Treatment Time: 61 minutes Time In: 830 Time Out: 0931 History: Pt. Presents to PT PO right [...] Precautions: standard HERRERA precaution Subjective Pt reports hip is still weak. Unable to walk without SPC due to leg giving out. Pain: denies pain Objective: PT Evaluation (03/19/25) [...] hip stretching to improve mobility Therapeutic Exercise: ( 30 minutes supervised ) Instructed pt through bilateral hip ther ex to improve muscular control and strength to improve pelvic control, gait per exercise grid bilateral LE hip Strength, Endurance, Flexibility, ROM, HEP, Neural Mobilization, Power, and Core Stability Therapeutic Activity: ( 23 minutes supervised ) Exercises to improve dynamic [...] (Not today) Assessment: Pt has participated in 13 PT session with start of POC on 03/19/25 for bilateral hip pain, right HERRERA 3 months ago and left hip bursitis. [place] giat pattern still present. Good effort with all ther ex but slow progress toward PT goals. Pt will benefit from skilled PT services focusing on bilateral hip strength, gait and mobility. Outcome Measure: in chart (04/09/25) Short Term Goal: To be met in 2 weeks Goal 1: Pt to be instructed in home exercise program. Assisted Goals: To be met in 10 weeks [...] sign below. Date: documented in this encounter [facility] 04-14-2025 Note [place] [facility] - [facility] Subjective Delano Ren is a 84 y.o. year old male patient being seen per Meera Snell request. Patient had recent ECHO and labs. Patient denies chest pain, SOB, leg swelling, or palpitations. Patient would like to discuss watchman. Patient Active Problem List Diagnosis Stage 3 [...] bronchitis (CMS/HCC) Obstructive sleep apnea Pacemaker A-fib ([facility]/HCC) Psoas abscess, right (CMS/HCC) Pulmonary hypertension (CMS/HCC) Thyrotoxicosis Type 2 diabetes mellitus with hyperglycemia (CMS/HCC) Hypersomnia Primary insomnia Family History Problem Relation Name Age of Onset Diabetes Mother Heart disease Father Glaucoma Brother Diabetes Maternal Grandmother Clotting disorder Other Social History Tobacco Use Smoking status: Former Current packs/day: 0.00 Types: Cigarettes Quit date: 1981 Years since quittin.5 Smokeless tobacco: Never Substance Use Topics Alcohol use: Yes Comment: OCCASIONAL Drug use: Never CHON Delano is seen in follow-up. He is a 84-year-old man with prior complex medical history including [...] statins and he is on ezetimibe therapy. He underwent DC cardioversion in October 2024 for atrial fibrillation successfully into sinus rhythm. He has been maintained on amiodarone for rhythm control. He was admitted in the past couple months to the hospital and his TSH was elevated. He was started on thyroid replacement. In addition he sustained a big fall in December 2024 and fractured his hip. He uses a cane to assist with ambulation. Today he reports that he has been doing reasonably well. He has NYHA class I symptoms and mild occasional leg swelling. He has no angina. He has no dizziness and lightheadedness. His blood pressure and heart rate are well-controlled. Blood pressure recordings at home in March 2025 show systolic around 120-130 with a diastolic around 70-80 with a heart rate around 60 to 70 bpm. He is currently on Xarelto 15 mg once daily and tolerating reasonably well. Review of Systems Hematologic/Lymphatic: Does not bruise/bleed easily. All other systems reviewed and are negative. Objective Visit Vitals BP 132/71 (BP Location: Right arm, Patient Position: Sitting) Pulse 71 Ht 1.803 m (5' 11 ) SpO2 95% BMI 27.20 kg/m??? Smoking Status Former BSA 2.11 m??? Physical Exam Constitutional: Appearance: He is [...] present. Left lower le+ Pitting Edema present. Comm (more content not included)... [facility] 03-31-2025 History of Present illness Narrative Images from the original note were not included. Physical Therapy Treatment Visit Patient Name: Delano Ren Today's Date: 03/31/2025 Encounter Diagnoses Name Primary? [...] on 03/19/25 for bilateral hip pain, right HERRERA 3 months ago and left hip bursitis. Reports [...] to be instructed in home exercise program. Assisted Goals: To be met in 10 weeks [...] sign below. Date: documented in this encounter [facility] 03-25-2025 Evaluation note Diagnosis Onset Date Resolution Skin tear of left forearm without complication deleted March 25, 2025 1:04pm Cellulitis of arm, left noneactive J [facility] 2024 1:04pm Acute blood loss anemia acute J une 2024 8:51am Chronic bronchitis, simple acute April 07, 2025 8:51am Chronic HFrEF (heart failure with reduced ejection fraction) acute April 07 8:51am Chronic kidney disease acute Ju ne 2024 8:51am Colon cancer acute April 07, 025 8:51am History of thyrotoxicosis acute April 07, 2025 8:51am Hypercholesteremia acute March 172024 8:51am Hypothyroidism due to medication acute April 07, 2025 8:51am Nonischemic dilated cardiomyopathy acute April 07, 2025 8:51am Anemia of renal disease acute J 2024 3:08pm Chronic HFrEF (heart failure with reduced ejection fraction) acute April 17 3:08pm Hypercholesteremia acute April 172024 3:08pm Secondary hyperparathyroidism acute April 17 3:08pm Type 2 diabetes mellitus with diabetic chronic kidney disease acute April 17, 2025 3:08pm Hypertensive chronic kidney disease with stage 1 through stage 4 chronic ki deleted April 17, 2025 3:08pm Stage 4 chronic kidney disease deleted April 17, 2025 3:08pm Femoral neck fracture inactive Apr 9:55am Status post hemiarthroplasty of right hip inactive April 29, 2025 9:55am Trochanteric bursitis, left hip deleted April 29, 2025 9:55am Acute blood loss anemia acute A ugust 2024 12:41pm Colon cancer acute June 06, 2025 12:41pm Secondary hyperparathyroidism acute June 06, 2025 12:41pm Colon cancer deleted June 06, 2025 12:43pm [facility] Work Phone: 1(186) 282-759506-04-2025 History of Present illness Narrative* Kenny Aldana, PT - 03/19/2025 3:00 PM EDT Images from the original note were not included. Physical Therapy Evaluation Visit Patient Name: Delano Ren Today's Date: 03/19/25 Encounter Diagnoses Name Primary? Greater trochanteric bursitis of left hip Yes History of total hip arthroplasty, right Left hip pain Visit number: 1 Timed Code Treatment Minutes: 50 minutes Total Treatment Time: 50 minutes Time In: 1500 Time Out: 1550 History: Pt. Presents to PT PO right [...] of pain. Precautions: standard HERRERA precaution Subjective Pain: 1-2/10 right hip; 5-6/10 left hip pain Objective: PT Evaluation (03/19/25) Right/hip ROM: grossly WFL in all planes Flexibility: moderate piriformis and hamstring muscle tightness on left Palpation: TTP left greater trochanter with increased muscle tightness Strength: right/left lateral hip strength 3+/5, extension 4-/5 Gait: antalgic gait pattern with trend[place]burg gait pattern Treatment: PT evaluation (20 minutes) Education: HEP education with demonstration, Educated on Eval Findings and POC Manual Therapy: (15 minutes) left hip stretching, MFR to left hip, Passive ROM, Joint mobilization,Soft Tissue Mobilization, Myofascial Release, Muscle Energy Technique, Neural Mobilization, Myofascial Cupping, Dry Needling, IASTM, and Scar mobilization Therapeutic Exercise: (12 minutes) exercises in grid; Strength, Endurance, Flexibility, ROM, HEP, Neural Mobilization, Power, and Core Stability Therapeutic Activity: Exercises to improve dynamic activities, functional tasks, functional mobility to return to prior activity level Neuromuscular re-education: Balance Training, Muscle Facilitation, Dynamic Stability, Core Stabilization, and Blood Flow Restriction Training (BFRT) Modalities: Heat, Ice, Electrical Stimulation, Ultrasound, Cervical Mechanical Traction, Lumbar Mechanical Traction, Iontophoresis, and Fluidotherapy DN: left greater trochanter protocol; 3x needles, 10 minute rest Assessment: Pt. Has participated in 1 PT session with start of POC on 03/19/25 for bilateral hip pain, right HERRERA 3 months ago and left hip bursitis. Pt. Will benefit from skilled PT services. Outcome Measure: in chart Short Term Goal: To be met in 2 weeks Goal 1: Pt to be instructed in home exercise program. Assisted Goals: To be met in 10 weeks [...] Please sign below. Date: documented in this encounterPutnam County Memorial [id number] Evaluation note* Diagnosis Onset Date Resolution Status Admit Date Femoral neck fracture inactive February 25, 2025 11:18am Status post hemiarthroplasty of right hip inactive February 25, 2025 11:18am Trochanteric bursitis, left hip david bonnie February 25, 2025 11:18am Colon cancer deleted February 28 1:52pm Skin tear of left forearm wi thout complication deleted March 25, 2025 1:04pm Cellulitis of arm, left noneactive J une 2024 1:04pm Acute blood loss anemia acute J une 2024 8:51am Chronic bronchitis, simple acute April 07, 2025 8:51am Chronic HFrEF (heart failure with reduced ejection fraction) acute April 07, 2025 8:51am Chronic kidney disease acute Ju ne 2024 8:51am Colon cancer acute April 07, 025 8:51am History of thyrotoxicosis acute April 07, 2025 8:51am Hypercholesteremia acute March 172024 8:51am 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 April 07, 2025 8:51am Nonischemic dilated cardiomyopathy acute April 07, 2025 8:51am Anemia of renal disease acute J tatyana 2024 3:08pm Chronic HFrEF (heart failure with reduced ejection fraction) acute April 17, 2025 3:08pm Hypercholesteremia acute April 172024 3:08pm Secondary hyperparathyroidism acute April 17, 2025 3:08pm Type 2 diabetes mellitus wit h diabetic chronic kidney disease acute April 17, 2025 3:08pm Hypertensive chronic kidney disease with stage 1 through stage 4 chronic ki deleted April 17 3:08pm Stage 4 chronic kidney disease delet ed April 17, 2025 3:08pm Femoral neck fracture inactive Apr 9:55am Status post hemiarthroplasty of right hip inactive April 29, 2025 9:55am Trochanteric bursitis, left hip david bonnie April 29, 2025 9:55am [facility] Work Phone: 1(994) 669-351205-09-2025 History of Present illness Narrative* Emely Batista, DPM - 02/21/2025 10:45 AM EDT Images from the original note were not included. Subjective Patient ID: Delano Ren is a 84 y.o. male who presents for DM Foot Care (Delano Ren 84yo New Patient present for diabetic nail care. Patient states it is difficult for him to reach his nail to trim. Patient relates his Diabetes is diet controlled at this time. A1C 6.[address] Linda 01/30/2025. SS 12.5). HPI This is a new patient who presents to clinic with his with concern of thickened, elongated toenails. Patient has been diet controlled diabetic for many years. He admits to some numbness and tingling sensations. Denies history of ulceration, amputation. Review of Systems Constitutional: Negative for activity change and appetite change. Respiratory: Negative for chest tightness and shortness of breath. Cardiovascular: Positive for leg swelling. Negative for chest pain. Musculoskeletal: Positive for arthralgias. Skin: Negative for color change and wound. Neurological: Positive for numbness. Negative for weakness. Psychiatric/Behavioral: Negative for agitation and behavioral problems. Hematological: Does not bruise/bleed easily. Endocrine: Negative for cold intolerance and heat intolerance. Allergic/Immunologic: Negative for immunocompromised state. Past medical History Past Medical History: Diagnosis Date A-fib ([facility]/HCC) Chronic kidney disease, stage 4 (severe) (CMS/[facility]) Colon cancer ([facility]) 08/2021 COPD (chronic obstructive pulmonary disease) ([facility]) Diabetes mellitus type II, controlled ([facility]/HCC) Gout HTN (hypertension) (CMS/HCC) Hypercholesteremia (CMS/HCC) Hypothyroid (CMS/HCC) Sleep apnea Medications Current Outpatient Medications: amiodarone (Pacerone) 200 MG tablet, Take 200 mg by mouth in the morning., Disp: , Rfl: furosemide (Lasix) 80 MG tablet, , Disp: , Rfl: allopurinol (Zyloprim) 100 MG tablet, Take 100 mg by mouth Daily, Disp: , Rfl: amLODIPine (Norvasc) 10 MG tablet, Take 10 mg by mouth Daily, Disp: , Rfl: apixaban (Eliquis) 2.5 MG tablet, Take 2.5 mg by mouth in the morning and 2.5 mg before bedtime., Disp: , Rfl: bumetanide (Bumex) 2 MG tablet, Take 2 mg by mouth Daily, Disp: , Rfl: ezetimibe (Zetia) 10 MG tablet, Take 10 mg by mouth Daily, Disp: , Rfl: Sxdcgoumwuo-Efsrivkbr-Ubvgfm (Trelegy Ellipta) 200-62.5-25 MCG/ACT aerosol powder , Inhale, Disp: ,Rfl: hydrALAZINE (Apresoline) 100 MG tablet, Take 100 mg by mouth in the morning and 100 mg in the evening and 100 mg before bedtime., Disp: , Rfl: isosorbide dinitrate (Isordil) 10 MG tablet, Take 10 mg by mouth in the morning and 10 mg in the evening and 10 mg before bedtime., Disp: , Rfl: methIMAzole (Tapazole) 10 MG tablet, Take 10 mg by mouth in the morning and 10 mg in the evening and 10 mg before bedtime., Disp: , Rfl: metoprolol succinate XL (Toprol-XL) 100 MG 24 hr tablet, Take 100 mg by mouth Daily Do not crush orchew., Disp: , Rfl: potassium chloride CR (Klor-Con M10) 10 MEQ ER tablet, Take 10 mEq by mouth Daily Do not crush or chew., Disp: , Rfl: Allergies Patient has no known allergies. Past Surgical History Past Surgical History: Procedure Laterality Date CARDIAC DEFIBRILLATOR PLACEMENT CARDIAC PACEMAKER PLACEMENT CT GUIDED IMAGING FOR ABSCESS DRAIN 05/27/2021 CT GUIDED IMAGING FOR ABSCESS DRAIN HIP FRACTURE SURGERY Right 12/2024 Ball replaced Family History No family history on file. Objective Physical Exam Constitutional: General: He is not in acute distress. Comments: Presents to clinic with wheeled walker assistance. Accompanied by his . Cardiovascular: Comments: DP pulse: 2/4 PT pulse: 1/4 Skin temperature is warm to cool Edema: Moderate edema bilaterally. Pulmonary: Effort: Pulmonary effort is normal. No respiratory distress. Musculoskeletal: Cervical back: Neck supple. No rigidity. Comments: Pedal deformities: Multiple hammertoe contractures bilaterally. Skin: Capillary Refill: Capillary refill takes less than 2 seconds. Comments: 4 toenails exhibit clinical mycosis with thickened appearance, yellow/brown discoloration, crumbly texture and subungual debris. All 10 toenails elongated. Hyperkeratotic tissue: Left foot: None Right foot: None Skin is diffusely thin Hair growth: Absent Neurological: Mental Status: He is alert. Comments: Protective sensation intact at 8/10 pedal sites Vibratory sensation diminished at the 1st MTP bilaterally. Psychiatric: Mood and Affect: Mood normal. Behavior: Behavior normal. Assessment/Plan ICD-10-CM 1. Diabetic polyneuropathy associated with type 2 diabetes mellitus (CMS/HCC) E11.42 2. Onychodystrophy L60.3 3. Onychomycosis B35.1 Patient was examined and evaluated. Diabetic foot evaluation performed. Patient is low risk for pedal complications from diabetes. He does have some mild deformity and neuropathy but no preulcerativelesions. Ten toenails were debrided in length and thickness today utilizing a nail nipper and electric bur multifocal button grinder without incident. I have discussed the importance of daily foot examinations and tight blood sugar control. We will follow up in 3 months for at risk diabetic foot evaluation. This note was created with the assistance of a speech recognition program. While intending to generate a timely document that accurately reflects the content of the visit, no guarantee can be provided that every grammatical or spelling mistake has been or will be identified or corrected. Thank you for your understanding. Emely Batista DPM documented in this encounterPutnam County Memorial [id number] NotePatients called with his blood pressures over the last 2 weeks Patient is currently holding Hydralazine, Amlodipine and Isosorbide. 143/82 135/67 130/73 121/70 119/61 141/67 148/85 131/69 149/79 112/79 134/75 130/78 133/77 130/69 140/68 147/77 Please adviseUniversity of [facility]2025 NotePatients has been informed - New script sent out for Hydralazine 10 mg BID. will call with updated BP's in [facility]Un[facility] NotePatient is here for a 3 month follow up. Patient missed a step and fell on December 21 and broke his right hip. Patient had surgery to repair his hip on December 23. Patient does has a small amount of swelling in his legs, per who states she thinks its kidney related. Patient denies any cardiac complaints. Per amlodipine, hydralazine, losartan and isosorbide have been put hold by the pharmaceutical operator due to low blood pressure. Patient still has samples of Eliquis and will be starting Xarelto. Review of Systems All other systems reviewed and are negative.[facility] 01-28-2025 NoteCardiovascular Medicine [facility] SUBJECTIVE Chief Complaint Patient presents with Atrial Fibrillation Congestive Heart Failure Hypertension Delano Ren is a 84 y.o. male here for follow-up. His and daughter Wilberto accompanied him today. HPI PMHx: chronic systolic heart failure, NICM, [...] left ventricular systolic function Hx statin intolerance. 01/28/2025 Patient is here for a 3 month follow up. Patient missed a step and fell on December 21 and broke his right hip. Patient had surgery to repair his hip on December 23. Patient does has a small amount of swelling in his legs, per who states she thinks its kidney related. Patient denies any cardiac complaints. Per amlodipine, hydralazine, losartan and isosorbide have been put hold by the pharmaceutical operator due to low blood pressure. Patient still has samples of Eliquis and will be starting Xarelto. His hgb was low after his recent fall. He received 5 units of PRBCs. GI saw him. He had a colonoscopy last fall and therefore GI did not feel low hgb was GI related, likely 2/2 chronic kidney disease. He saw Dr. Flowers (nephrology) last week. His renal function worsened recently and has improved back to his average of 2.5 per pt's spouse. He has been feeling well from a cardiac standpoint. Denies c/o CP, dyspnea, orthopnea, PND. 11/13/2024 Since last seen he underwent a [...] flutter (CMS/HCC) Proteinuria Type 2 diabetes mellitus ([facility]/HCC) COPD (chronic obstructive pulmonary disease) ([facility]/HCC) Dilated cardiomyopathy (CMS/HCC) Statin intolerance Stage 4 [...] Types: Cigarettes Quit date: 1981 Years since quittin.3 Smokeless tobacco: Never Substance Use Topics Alcohol use: Yes Comment: OCCASIONAL Drug use: Never Allergies Allergen Reactions Wmscgea-Yfs-Hbs Reductase Inhibitors Tramadol ROS Cardiovascular: Positive for leg swelling. Hematologic/Lymphatic: Bruises/bleeds easily. Musculoskeletal: positive for falls. All other systems reviewed and are negative. OBJECTIVE Visit Vitals BP 128/69 (BP Location: Right arm, Patient Position: Sitting) Pulse 68 Ht 1.803 m (5' 11 ) Wt 88.5 kg (195 lb) SpO2 97% BMI 27.20 kg/m??? Smoking Status Former BSA 2.11 m??? Medications: Current Outpatient Medications: allopurinol (Zyloprim) 100 mg tablet, Take 1 tablet by mouth in the morning., Disp: , Rfl: amiodarone (Pacerone) 200 mg tablet, Take 1 tablet (200 mg) by mouth in the morning. DO NOT START BEFORE SEPTEMBER 25 2024, Disp: 90 tablet, Rfl: 3 ascorbic acid (Vitamin C) 500 mg ER capsule, Take 200 mg by mouth in the morning., Disp: [...] AT BEDTIME, Disp: 90 tablet, Rfl: 3 ferrous sulfate 325 (65 Fe) MG EC tablet, Take 65 mg of iron by mouth with breakfast, with lunch, and with evening meal. Do not crush, chew, or split., (more content not included)...[facility]04-14-2025 Miscellaneous Notes* Telephone Encounter - Connie Dunham CMA - 01/27/2025 9:05 AM EDTSummary: New Food [employer] Bever[employer] Checker Recently found a new pharmaceutical operator documented in this encounterCommunity [facility] Medical CenterLearn It Systems04-14-2025 Telephone encounter Note* Telephone Encounter - Connie Dunham CMA - 01/27/2025 9:05 AM EDTSummary: New Food And Beverage Checker Recently found a new pharmaceutical operator [facility]04-07-2025 Evaluation note* Diagnosis Onset Date Resolution Status Admit Date Anemia of renal disease acute A pril 2024 10:53am Chronic HFrEF (heart failure with reduced ejection fraction) acute January 20, 2025 10:53am Secondary hyperparathyroidism acute January 20, 2025 10:53am Type 2 diabetes mellitus wit h diabetic chronic kidney disease acute January 20, 2025 10:53am Hyperlipidemia type II deleted Ap ril 2024 10:53am Hypertensive chronic kidney disease with stage 1 through stage 4 chronic ki deleted January 20 10:53am Stage 4 chronic kidney disease delet ed January 20, 2025 10:53am Acute blood loss anemia acute A pril 2024 1:59pm Chronic bronchitis, simple acute January 28, 2025 1:59pm Chronic HFrEF (heart failure with reduced ejection fraction) acute January 28, 2025 1:59pm Chronic kidney disease acute Ap ril 2024 1:59pm 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 January 28, 2025 1:59pm Nonischemic dilated cardiomyopathy acute January 28, 2025 1:59pm Femoral neck fracture inactive Jan 1:59pm Hypotension after procedure deleted January 28, 2025 1:59pm Femoral neck fracture inactive February 25, 2025 11:18am Status post hemiarthroplasty of right hip inactive February 25, 2025 11:18am Trochanteric bursitis, left hip david bonnie February 25, 2025 11:18am Colon cancer deleted February 28 1:52pm Skin tear of left forearm wi thout complication deleted March 25, 2025 1:04pm Cellulitis of arm, left noneactive J une 2024 1:04pm Acute blood loss anemia acute J une 2024 8:51am Chronic bronchitis, simple acute April 07, 2025 8:51am Chronic HFrEF (heart failure with reduced ejection fraction) acute April 07, 2025 8:51am Chronic kidney disease acute Ju ne 2024 8:51am Colon cancer acute April 07 025 8:51am History of thyrotoxicosis acute April 07, 2025 8:51am Hypercholesteremia acute March 172024 8:51am 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 April 07, 2025 8:51am Nonischemic dilated cardiomyopathy acute April 07, 2025 8:51am Anemia of renal disease acute J tatyana 2024 3:08pm Chronic HFrEF (heart failure with reduced ejection fraction) acute April 17, 2025 3:08pm Secondary hyperparathyroidism acute April 17, 2025 3:08pm Type 2 diabetes mellitus wit h diabetic chronic kidney disease acute April 17, 2025 3:08pm [facility] Work Phone: 1(782) 497-996303-26-2025 Progress note Author Kaitlynn Emanuel [facility] Note Date/Time January 08, 2025 3:0 5pm [facility] [address] [place] [address] Nephrology Progress Note Signed Patient: Delano Ren MR#: [id number] : 1940 Acct:[id number] Age/Sex: 84 / M Adm Date: 5 Loc: Room: 3J1037-3 Type: ADM IN Attending Dr: Sotero Black MD Copies to: ~ Date of Service: 01/08/2025 Subjective Subjective Narrative: This is a 84 male with medical history of CKD IV, HTN, A-fib, HFrEF, DM, gout and HLD was initially admitted after mechanical fall for right hip fracture. Heunderwent surgery on December 23. His postoperative course was complicated by aspiration pneumonia and was started on IV antibiotic by the hospitalist. He also had acute on chronic anemia due to the possibly blood loss anemia and was transfused 2 unit of PRBC. He was also found to have WICHO on CKD in the setting of relative hypotension and blood loss anemia. His renal function improved withfluid resuscitation and blood transfusion. He was resumed on Lasix and had a good urine output. Patient moved to the inpatient rehab. Nephrology consultedfor WICHO on CKD care during his rehab stay. Interval history: Patient was seen and examined in his room. Patient is up in the chair. He said that he will continue to do better with no complaints. He is able to eat and drink. No nausea or vomiting. Blood pressure did improve after holding hydralazine and decrease metoprolol to25 mg daily. Patient also remain off amlodipine Lasix Renal function started to improve with creatinine down to 1.9 mg/dL which is hisbaseline. He has good urine output 1300 mL over the last 24-hour Exam Physical Exam Vital Signs: Temp Pulse Resp BP Pulse Ox O2 Del Method O2 Flow Rate 97.9 F 67 16 130/69 96 Room Air 1 01/08/25 11:01/08/25 11:01/08/25 11:31 01/08/25 11:01/08/25 11:01/08/25 11:12/30/24 05:00 Narrative: General: No acute distress Head :atraumatic normocephalic Eyes: PERRLA. Neck: no JVD no bruit. Heart: S1-S2. RRR Respiratory: Clear to auscultation. No wheezing. No crackles Abdomen: Soft, positive bowel sounds,no tenderness. Neurology: Awake alert oriented x3. No focal deficits Extremity. No cyanosis. +1 edema of lower extremity Skin: No skin rash Objective Intake and Output I&O: Intake & Output 01/05/25 01/06/25 01/07/25 01/08/25 23:59 23:59 23:59 23:59 Intake Total 240 / 240 1260 / 1260 1450 / 1450 240 / 240 Output Total 1325 / 1325 475 / 475 300 / 300 350 / 350 Balance -1085 / -1085 785 / 785 1150 / 1150 -110 / -110 Weight 94.4 kg 95.3 kg 91.7 kg 92.5 kg Meds and Allergies Meds: Active Medications Acetaminophen (Acetaminophen 500 Mg Tablet) 500 mg PO Q4H PRN PRN Reason: Pain Stop: 12/27/25 14:22 Acetaminophen (Acetaminophen 500 Mg Tablet) 1,000 mg PO Q8HR PRN PRN Reason: pain Stop: 12/27/25 14:34 Last Admin: 01/05/25 20:20 Dose: 1,000 mg Al Hydrox/Mg Hydrox/Simethicone (Mag Hydrox/Al Hydrox/Simeth 30 Ml Udc) 30 ml PO Q4H PRN PRN Reason: Indigestion Stop: 12/27/25 14:22 Albuterol (Albuterol Neb 2.5 Mg/3 Ml Vial.Neb) 2.5 mg INHALATION Q2H PRN PRN Reason: Shortness Of Breath Stop: 12/27/25 14:34 Allopurinol (Allopurinol 100 Mg Tablet) 100 mg PO BID REPLACED BY [facility] Stop: 12/30/25 20:59 Last Admin: 01/08/25 09:13 Dose: 100 mg Amiodarone HCl (Amiodarone 200 Mg Tablet) 200 mg PO DAILY FERN Stop: 12/28/25 08:59 Last Admin: 01/08/25 09:13 Dose: 200 mg Apixaban (Apixaban 2.5 Mg Tablet) 2.5 mg PO BID REPLACED BY [facility] Stop: 12/28/25 08:59 Last Admin: 01/08/25 09:12 Dose: 2.5 mg Ascorbic Acid (Ascorbic Acid 500 Mg Tablet) 500 mg PO DAILY REPLACED BY [facility] Stop: 12/28/25 08:59 Last Admin: 01/08/25 09:13 Dose: 500 mg Balsam Qian/[place] Oil (Balsam Qian/[place] Oil Oint 60 Gm Tube) 1 applic TOPICAL BID PRN PRN Reason: tape caraballo Stop: 01/01/26 12:33 Last Admin: 01/04/25 21:05 Dose: 1 applic Bisacodyl (Bisacodyl 10 Mg Supp.Rect) 10 mg [place] DAILY PRN PRN Reason: Constipation Stop: 12/27/25 14:22 Budesonide/Formoterol Fumarate (Budesonide/Formoterol 160-4.5 Mcg 120 Puff/10.2 Gm Hfa.Aer.Ad) 2 puff INHALATION BID FERN Stop: 12/28/25 08:59 Last Admin: 01/08/25 06:07 Dose: Not Given Calcium Carbonate (Calcium Carbonate/Vitamin D3 500 Mg/200 Unit Tablet) 1 tab PO TID.WITH.MEALS REPLACED BY [facility] Stop: 12/27/25 16:59 Last Admin: 01/08/25 12:30 Dose: 1 tab Diclofenac Sodium (Diclofenac Sodium 1% Gel 100 Gm Tube) 2 gm TOPICAL QID PRN PRN Reason: Muscle Pain Stop: 01/02/26 10:34 Last Admin: 01/03/25 08:06 Dose: 2 gm Docusate Sodium (Docusate 100 Mg Capsule) 100 mg PO BID PRN PRN Reason: Constipation Stop: 12/27/25 14:22 Docusate Sodium (Docusate Enema 283 Mg/5 Ml Enema) 283 mg [place] DAILY PRN PRN Reason: Constipation Stop: 12/27/25 14:22 Ezetimibe (Ezetimibe 10 Mg Tablet) 10 mg PO DAILY REPLACED BY [facility] Stop: 12/28/25 08:59 Last Admin: 01/08/25 09:13 Dose: 10 mg Ferrous Sulfate (Ferrous Sulfate 324 Mg Tablet.Dr) 324 mg PO DAILY FERN Stop: 01/04/26 08:59 Last Admin: 01/08/25 09:13 Dose: 324 mg Hydralazine HCl (Hydralazine 50 Mg Tablet) 50 mg PO BID REPLACED BY [facility] Stop: 01/01/26 20:59 Last Admin: 01/02/25 08:49 Dose: Not Given Ipratropium [place] (Ipratropium [place] 0.5 Mg/2.5 Ml Vial.Neb) 0.5 mg INHALATION QID.RESP FERN Stop: 12/27/25 19:59 Last Admin: 01/08/25 13:28 Dose: Not Given Isosorbide Dinitrate (Isosorbide Dinitrate 10 Mg Tablet) 10 mg PO TID REPLACED BY [facility] Stop: 12/27/25 21:59 Last Admin: 01/02/25 08:48 Dose: 10 mg Lactulose (Lactulose 20 Gm/30 Ml Udc) 30 gm PO DAILY PRN PRN Reason: Constipation Stop: 12/27/25 14:22 Melatonin (Melatonin 5 Mg Tablet) 5 mg PO QHS REPLACED BY [facility] Stop: 01/01/26 21:59 Last Admin: 01/07/25 20:28 Dose: 5 mg Metoprolol Succinate (Metoprolol Succinate 25 Mg Tab.Er.24h) 25 mg PO DAILY REPLACED BY [facility] Stop: 01/03/26 08:59 Last Admin: 01/08/25 09:13 Dose: 25 mg Oxycodone HCl (Oxycodone Ir 5 Mg Tablet) 5 mg PO Q4HR PRN PRN Reason: Pain Scale 4 - 7 Last Admin: 12/30/24 05:40 Dose: 5 mg Oxycodone HCl (Oxycodone Ir 5 Mg Tablet) 10 mg PO Q4HR PRN PRN Reason: Pain Scale 8 - 10 Last Admin: 01/01/25 14:10 Dose: 10 mg Phenyleph/Shark Oil/Min Oil/Petrol (Phenyleph/Mineral Oil/Petrolat 57 Gm Tube) 1 applicator [place] QID PRN PRN Reason: Hemorrhoids Stop: 01/04/26 23:01 Polyethylene Glycol (Polyethylene Glycol 3350 17 Gm Powd.Pack) 17 gm PO DAILY FERN Stop: 12/28/25 08:59 Last Admin: 01/08/25 09:16 Dose: Not Given Sennosides (Sennosides 8.6 Mg Tablet) 17.2 mg PO DAILY@12 PRN PRN Reason: If no BM in 2 days Stop: 12/28/25 11:59 Sodium Chloride (Sodium Chloride 0.9 % 10 Ml Syringe) 0 ml IV-PUSH PRN PRN PRN Reason: Flush Stop: 12/27/25 14:22 Vitamin D (Cholecalciferol 125 Mcg (5,000 Units) Capsule) 125 mcg PO DAILY FERN Stop: 12/28/25 08:59 Last Admin: 01/08/25 09:12 Dose: 125 mcg Allergies simvastatin Allergy (Unknown, Verified 12/19/24 08:50) Unknown Reaction Fqirxld-STN-RrU Reductase Inhibitor (Zyaohij-Uii-Njd Reductase Inhibitor) Allergy (Unknown, Verified 12/19/24 08:50) Muscle Pain tramadol Allergy (Verified 12/19/24 08:50) Itching niacin ER Allergy (Uncoded 08/22/24 08:31) itching Results - Nephrology Labs 01/07/25 05:33 01/08/25 05:27 Labs: 01/08/25 05:27 BUN 39 H Creatinine 1.96 H Phosphorus 3.5 Albumin 3.0 L Radiology Impressions Impressions - last 24 hours: Any impression(s) listed above is documentation that was entered by the reading physician into a diagnostic report(s) for Delano Ren. I have reviewed the report(s) and am incorporating any findings in the treatment plan of this patient where applicable. A&P - Nephrology Assessment/Plan (1) Acute kidney injury superimposed on CKD: Assessment/Problem Details: He has a WICHO on CKD due to the relative hypotension and postoperative blood lossanemia creatinine function has improved however started to drift up again with lower blood pressure and drop of hemoglobin. Patient back on Eliquis. (2) Aspiration pneumonia: Assessment/Problem Details: Recovered, he is done with antibiotics (3) Stage 4 chronic kidney disease: Assessment/Problem Details: He has a CKD due to the longstanding DM and HTN with baseline creatinine 2.6-3 mg/dL. (4) Chronic HFrEF (heart failure with reduced ejection fraction): Assessment/Problem Details: Patient appears to be well compensated. (5) Femoral neck fracture: Assessment/Problem Details: He is s/p ORIF on 12/23/2024 (6) Hypertensive chronic kidney disease with stage 1 through stage 4 chronic kidney disease, or unspecified chronic kidney disease: Assessment/Problem Details: His blood pressure is controlled. Plan * Renal function continues to improve with better blood pressure after cutting down multiple blood pressure medications including amlodipine and hydralazine. Metoprolol succinate was decreased to 25 mg daily as well. Serum creatinine down to 1.9 mg deciliter * Will add home Lasix but at lower dose 40 mg p.o. daily starting tomorrow * Patient had 2 units of packed RBCs during this admission for anemia. Hemoglobin is better today up to 8.0 g deciliter. Eliquis currently on hold. Will defer blood transfusion per primary service * Stool for blood was positive. GI was consulted. Patient is known to have hemorrhoids on August 2024. No need to repeat colonoscopy. * Check renal function and CBC 3 times weekly Documented By: Kaitlynn Emanuel MD 01/08/251501 Signed By: <Electronically signed by Kaitlynn Emanuel MD> 01/08/251504 [facility] Work Phone: [phone]) 869-543703-25-2025 Progress note Author Sotero Black [facility] Note Date/Time January 07, 2025 3:4 0pm [facility] [address] [place] [address] Physiatry(Rehab) Progress Note Signed Patient: Delano Ren MR#: [id number] : 1940 Acct:[id number] Age/Sex: 84 / M Adm Date: 5 Loc: Room: [address] [place] [address] Type: ADM IN Attending Dr: Sotero Black MD Copies to: ~ Date of Service: 01/07/2025 Subjective Subjective Narrative: Mr. Ren is a 84 year old male with multiple complex medical comorbidities as below including nonischemic cardiomyopathy with reduced ejection fraction and ICD/defibrillator in place, anticoagulated with Eliquis, chronic renal failure, likely underlying COPD, and others presenting with right femoral neck fracture after a fall, status post hemiarthroplasty December 24. Postop course notable for acute on chronic renal failure and hypoxemic respiratory failure, multifactorial, completed treatment for aspiration pneumonia. Interval history: Continues to improve. Pain is well-controlled. His hemoglobin is 8.0. Discussed at team meeting, family at bedside and updated on plan of care. Plan for discharge home as early as Monday. Review of Systems Review of Systems All other systems reviewed & are negative unless noted below or in HPI Exam Physical Exam Vital Signs: Temp Pulse Resp BP Pulse Ox O2 Del Method O2 Flow Rate 98.4 F 65 18 132/68 93 L Room Air 1 01/07/25 05:35 01/07/25 05:35 01/07/25 05:35 01/07/25 05:35 01/07/25 05:35 01/07/25 05:35 12/30/24 05:00 Narrative: Pleasant No acute distress Nonlabored breathing Awake and alert. Oriented x 3. Right lower extremity exam limited by pain, fair strength throughout 1+ right lower extremity edema Objective Labs 01/07/25 05:33 01/06/25 04:50 Labs: Laboratory Results - last 24 hr 01/07/25 05:33 Hgb 8.0 L Hct 23.3 L Medications and Allergies Allergies and Active Meds: Allergies simvastatin Allergy (Unknown, Verified 12/19/24 08:50) Unknown Reaction Gxjbsan-GZD-QcE Reductase Inhibitor (Nnbwywp-Dcy-Jlo Reductase Inhibitor) Allergy (Unknown, Verified 12/19/24 08:50) Muscle Pain tramadol Allergy (Verified 12/19/24 08:50) Itching niacin ER Allergy (Uncoded 08/22/24 08:31) itching Active Medications Generic Name Dose Route Start Last Admin Trade Name Freq PRN Reason Stop Dose Admin Acetaminophen 500 mg 12/27/24 14:23 Acetaminophen 500 Mg Tablet PO 12/27/25 14:22 Q4H PRN Pain Acetaminophen 1,000 mg 12/27/24 14:35 01/05/25 20:20 Acetaminophen 500 Mg Tablet PO 12/27/25 14:34 1,000 mg Q8HR PRN Administration pain Al Hydrox/Mg Hydrox/Simethicone 30 ml 12/27/24 14:23 Mag Hydrox/Al Hydrox/Simeth 30 Ml Udc PO 12/27/25 14:22 Q4H PRN Indigestion Albuterol 2.5 mg 12/27/24 14:35 Albuterol Neb 2.5 Mg/3 Ml Vial.Neb INHALATION 12/27/25 14:34 Q2H PRN Shortness Of Breath Allopurinol 100 mg 12/30/24 21:00 01/06/25 21:54 Allopurinol 100 Mg Tablet PO 12/30/25 20:59 100 mg BID FERN Administration Amiodarone HCl 200 mg 12/28/24 09:00 01/06/25 08:33 Amiodarone 200 Mg Tablet PO 12/28/25 08:59 200 mg DAILY FERN Administration Apixaban 2.5 mg 12/28/24 09:00 12/31/24 08:30 Apixaban 2.5 Mg Tablet PO 12/28/25 08:59 2.5 mg BID FERN Administration Ascorbic Acid 500 mg 12/28/24 09:00 01/06/25 08:33 Ascorbic Acid 500 Mg Tablet PO 12/28/25 08:59 500 mg DAILY FERN Administration Balsam [place] Oil 1 applic 01/01/25 12:34 01/04/25 21:05 Balsam Qian/[place] Oil Oint 60 Gm Tube TOPICAL 01/01/26 12:33 1 applic BID PRN Administration tape caraballo Bisacodyl 10 mg 12/27/24 14:23 Bisacodyl 10 Mg Supp.Rect [place] 12/27/25 14:22 DAILY PRN Constipation Budesonide/Formoterol Fumarate 2 puff 12/28/24 09:00 01/07/25 05:44 Budesonide/Formoterol 160-4.5 Mcg 120 Puff/10.2 Gm Hfa.Aer.Ad INHALATION 12/28/25 08:59 Not Given BID FERN Calcium Carbonate 1 tab 12/27/24 17:00 01/06/25 17:15 Calcium Carbonate/Vitamin D3 500 Mg/200 Unit Tablet PO 12/27/25 16:59 1 tab TID.WITH.MEALS FERN Administration Diclofenac Sodium 2 gm 01/02/25 10:35 01/03/25 08:06 Diclofenac Sodium 1% Gel 100 Gm Tube TOPICAL 01/02/26 10:34 2 gm QID PRN Administration Muscle Pain Docusate Sodium 100 mg 12/27/24 14:23 Docusate 100 Mg Capsule PO 12/27/25 14:22 BID PRN Constipation Docusate Sodium 283 mg 12/27/24 14:23 Docusate Enema 283 Mg/5 Ml Enema [place] 12/27/25 14:22 DAILY PRN Constipation Ezetimibe 10 mg 12/28/24 09:00 01/06/25 08:33 Ezetimibe 10 Mg Tablet PO 12/28/25 08:59 10 mg DAILY FERN Administration Ferrous Sulfate 324 mg 01/04/25 09:00 01/06/25 08:33 Ferrous Sulfate 324 Mg Tablet.Dr PO 01/04/26 08:59 324 mg DAILY FERN Administration Hydralazine HCl 50 mg 01/01/25 21:00 01/02/25 08:49 Hydralazine 50 Mg Tablet PO 01/01/26 20:59 Not Given BID FERN Ipratropium [place] 0.5 mg 12/27/24 20:00 01/07/25 05:44 Ipratropium [place] 0.5 Mg/2.5 Ml Vial.Neb INHALATION 12/27/25 19:59 Not Given QID.RESP FERN Isosorbide Dinitrate 10 mg 12/27/24 22:00 01/02/25 08:48 Isosorbide Dinitrate 10 Mg Tablet PO 12/27/25 21:59 10 mg TID FERN Administration Lactulose 30 gm 12/27/24 14:23 Lactulose 20 Gm/30 Ml Udc PO 12/27/25 14:22 DAILY PRN Constipation Melatonin 5 mg 01/01/25 22:00 01/06/25 21:54 Melatonin 5 Mg Tablet PO 01/01/26 21:59 5 mg QHS FERN Administration Metoprolol Succinate 25 mg 01/03/25 09:00 01/06/25 08:33 Metoprolol Succinate 25 Mg Tab.Er.24h PO 01/03/26 08:59 25 mg DAILY FERN Administration Oxycodone HCl 5 mg 12/27/24 14:35 12/30/24 05:40 Oxycodone Ir 5 Mg Tablet PO 5 mg Q4HR PRN Administration Pain Scale 4 - 7 Oxycodone HCl 10 mg 12/27/24 14:35 01/01/25 14:10 Oxycodone Ir 5 Mg Tablet PO 10 mg Q4HR PRN Administration Pain Scale 8 - 10 Phenyleph/Shark Oil/Min Oil/Petrol 1 applicator 01/04/25 23:02 Phenyleph/Mineral Oil/Petrolat 57 Gm Tube [place] 01/04/26 23:01 QID PRN Hemorrhoids Polyethylene Glycol 17 gm 12/28/24 09:00 01/06/25 08:33 Polyethylene Glycol 3350 17 Gm Powd.Pack PO 12/28/25 08:59 17 gm DAILY FERN Administration Sennosides 17.2 mg 12/28/24 12:00 Sennosides 8.6 Mg Tablet PO 12/28/25 11:59 DAILY@12 PRN If no BM in 2 days Sodium Chloride 0 ml 12/27/24 14:23 Sodium Chloride 0.9 % 10 Ml Syringe IV-PUSH 12/27/25 14:22 PRN PRN Flush Sodium Chloride 10 ml 12/28/24 06:00 01/07/25 05:39 Sodium Chloride 0.9 % 10 Ml Syringe IV-PUSH 12/28/25 05:59 10 ml Q8H FERN Administration Vitamin D 125 mcg 12/28/24 09:00 01/06/25 08:33 Cholecalciferol 125 Mcg (5,000 Units) Capsule PO 12/28/25 08:59 125 mcg DAILY FERN Administration Assessment/Plan Assessment/Plan (1) Femoral neck fracture: Plan: PT to improve pt's strength, endurance, bed mobility, transfers (sit-stand), standing balance, gait quality on level surfaces and stairs, coordination and functional ADL skills. Will also work to improve pt's safety awareness during transfers and ambulation. OT for basic ADL re-training (bathing, dressing, toileting, continence, grooming, feeding, transferring), to increase activity tolerance and functional mobility and to evaluate for adaptive and assistive devices. Will work to improve pt's endurance and educate pt on fall prevention and energy conservationtechniques-pacing strategies and proper breathing techniques during functional tasks. Patient education Pressure ulcer prophylaxis; encourage mobilization, frequent postural changes, pressure-relief techniques DVT prophylaxis Encourage deep breathing exercise incentive spirometry. Monitor bladder. Toileting schedule. Continue current bladder management, with scans as needed and CIC if needed. Start bowel care program every day to obtain continence, prevent ileus. Maintain fall precautions Gait and balance retraining Provision of the necessary gait aids and functional adaptive equipment to enhance the patient's a functional protestant Encourage deep breathing exercises and incentive spirometry RD evaluation Ensure adequate nutrition and hydration Discharge planning. 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 Ren is a 84 year old male with multiple complex medical comorbidities as below including nonischemic cardiomyopathy with reduced ejection fraction and ICD/defibrillator in place, anticoagulated with Eliquis, chronic renal failure, likely underlying COPD, and others presenting with right femoral neck fracture after a fall, status post hemiarthroplasty December 24. -Continues to improve. Ambulatory standby assist and able to do a few stairs. Plan is for home as early as Monday. Hemoglobin stable 8.0. Resume Eliquis tonight repeat labs on Monday Hospitalist to assist with management of comorbid medical conditions Pain control: Limit opioids. Wean as tolerated. Bowel and bladder:. Maintain bowel regimen. Monitor urine output. Skin: Maintain operative site, turn in position for offloading and pressure ulcer prevention Sleep: Optimize sleep-wake cycle DVT prophylaxis: Resume home Eliquis. Functional status: See therapy notes. Discharge planning:. Home in 2 weeks. I spent 28 minutes for services, including [id number] encounter with the patient, discussion of the case, plan of care, and exam; and [id number] activities, such as reviewing pertinent furniture sales consultant documentation, recent therapynotes, laboratory and radiology studies, and discussion of case with care team including physician, nursing, case manager specialist, and therapists. More than 50 % of time was spent on patient/family counseling or coordination ofcare. Documented By: Sotero Black MD 01/07/25 0903 Signed By: <Electronically signed by Sotero Black MD> 01/07/25 5610 [facility] Work Phone: 1(117) 519-996903-24-2025 Progress note Author Brendabenjie Driscoll [facility] Note Date/Time January 06, 2025 1:4 1pm [facility] [address] [place] [address] Physiatry(Rehab) Progress Note Signed Patient: Delano Ren MR#: [id number] : 1940 Acct:[id number] Age/Sex: 84 / M Adm Date: 5 Loc: Room: [address] [place] [address] Type: ADM IN Attending Dr: Sotero Black MD Copies to: ~ Date of Service: 01/06/2025 Subjective Subjective Narrative: Mr. Ren is a 84 year old male with multiple complex medical comorbidities as below including nonischemic cardiomyopathy with reduced ejection fraction and ICD/defibrillator in place, anticoagulated with Eliquis, chronic renal failure, likely underlying COPD, and others presenting with right femoral neck fracture after a fall, status post hemiarthroplasty December 24. Postop course notable for acute on chronic renal failure and hypoxemic respiratory failure, multifactorial, completed treatment for aspiration pneumonia. Interval history: Patient evaluated in his room while sitting in a wheelchair. He is alert, pleasant, oriented x 3. Reports no acute events over the weekend. He is feeling fairly well. No major complaints or concerns. Labs and vitals are relatively stable, although H&H remain patient reports no associated symptoms such as dizziness, lightheadedness, palpitations. We will continue to trend. Bilateral lower extremity edema is marginally better she has no pain in the calfarea. Patient continues to tolerate therapy. Ambulatory 150 feet with a walker and SBA/CGA. Requires SBA/CGA with transfers. Review of Systems Review of Systems All other systems reviewed & are negative unless noted below or in HPI Exam Physical Exam Vital Signs: Temp Pulse Resp BP Pulse Ox O2 Del Method O2 Flow Rate 98.3 F 80 18 110/55 L 97 Room Air 1 01/06/25 08:38 01/06/25 08:38 01/06/25 08:38 01/06/25 08:38 01/06/25 08:38 01/06/25 08:38 12/30/24 05:00 Narrative: General: Awake, alert, oriented x3 HENT: Normal to inspection, normocephalic, atraumatic. Mild pallor of the skin. Eyes: PERRL, normal conjunctiva and sclera Neck: Normal ROM, normal visual inspection. Trachea midline. Cardio: Regular heart rate and rhythm Respiratory: Clear to auscultation bilaterally. Normal respiratory effort. No respiratory distress. GI: Abdomen soft, nontender, nondistended, active bowel sounds x4 quadrants Neuro: CN II-XII intact. Strength 5/5, equal bilaterally Extremities: No edema, erythema, cyanosis Psych: Mood and affect appropriate. Normal speech. Objective Labs 01/06/25 04:50 01/06/25 04:50 Labs: Laboratory Results - last 24 hr 01/06/25 04:50 Corrected WBC 8.0 RBC 2.32 L Hgb 7.5 L Hct 21.9 L MCV 94.4 MCH 32.5 MCHC 34.4 RDW 14.7 Plt Count 350 MPV 6.7 PHA Creatinine Clear 28.43 Sodium 139 Potassium 4.2 Chloride 105 Carbon Dioxide 28.4 Anion Gap 9.8 BUN 55 H Creatinine 2.36 H Est GFR (CKD-EPI) 26.816 Glucose 106 H Calcium 8.2 L Additional Results Results Comments: I reviewed clinical lab tests, radiology reports and obtained and summated medical records and have ordered follow up lab tests and imaging studies as needed for rehabilitation care. Medications and Allergies Allergies and Active Meds: Allergies simvastatin Allergy (Unknown, Verified 12/19/24 08:50) Unknown Reaction Oxsaqts-LOI-UpA Reductase Inhibitor (Fmsmxal-Dsi-Qwb Reductase Inhibitor) Allergy (Unknown, Verified 12/19/24 08:50) Muscle Pain tramadol Allergy (Verified 12/19/24 08:50) Itching niacin ER Allergy (Uncoded 08/22/24 08:31) itching Active Medications Generic Name Dose Route Start Last Admin Trade Name Freq PRN Reason Stop Dose Admin Acetaminophen 500 mg 12/27/24 14:23 Acetaminophen 500 Mg Tablet PO 12/27/25 14:22 Q4H PRN Pain Acetaminophen 1,000 mg 12/27/24 14:35 01/05/25 20:20 Acetaminophen 500 Mg Tablet PO 12/27/25 14:34 1,000 mg Q8HR PRN Administration pain Al Hydrox/Mg Hydrox/Simethicone 30 ml 12/27/24 14:23 Mag Hydrox/Al Hydrox/Simeth 30 Ml Udc PO 12/27/25 14:22 Q4H PRN Indigestion Albuterol 2.5 mg 12/27/24 14:35 Albuterol Neb 2.5 Mg/3 Ml Vial.Neb INHALATION 12/27/25 14:34 Q2H PRN Shortness Of Breath Allopurinol 100 mg 12/30/24 21:00 01/06/25 08:33 Allopurinol 100 Mg Tablet PO 12/30/25 20:59 100 mg BID FERN Administration Amiodarone HCl 200 mg 12/28/24 09:00 01/06/25 08:33 Amiodarone 200 Mg Tablet PO 12/28/25 08:59 200 mg DAILY FERN Administration Apixaban 2.5 mg 12/28/24 09:00 12/31/24 08:30 Apixaban 2.5 Mg Tablet PO 12/28/25 08:59 2.5 mg BID FERN Administration Ascorbic Acid 500 mg 12/28/24 09:00 01/06/25 08:33 Ascorbic Acid 500 Mg Tablet PO 12/28/25 08:59 500 mg DAILY FERN Administration Balsam Qian/[place] Oil 1 applic 01/01/25 12:34 01/04/25 21:05 Balsam [place] Oil Oint 60 Gm Tube TOPICAL 01/01/26 12:33 1 applic BID PRN Administration tape caraballo Bisacodyl 10 mg 12/27/24 14:23 Bisacodyl 10 Mg Supp.Rect [place] 12/27/25 14:22 DAILY PRN Constipation Budesonide/Formoterol Fumarate 2 puff 12/28/24 09:00 01/06/25 06:28 Budesonide/Formoterol 160-4.5 Mcg 120 Puff/10.2 Gm Hfa.Aer.Ad INHALATION 12/28/25 08:59 Not Given BID FERN Calcium Carbonate 1 tab 12/27/24 17:00 01/06/25 11:48 Calcium Carbonate/Vitamin D3 500 Mg/200 Unit Tablet PO 12/27/25 16:59 1 tab TID.WITH.MEALS FERN Administration Diclofenac Sodium 2 gm 01/02/25 10:35 01/03/25 08:06 Diclofenac Sodium 1% Gel 100 Gm Tube TOPICAL 01/02/26 10:34 2 gm QID PRN Administration Muscle Pain Docusate Sodium 100 mg 12/27/24 14:23 Docusate 100 Mg Capsule PO 12/27/25 14:22 BID PRN Constipation Docusate Sodium 283 mg 12/27/24 14:23 Docusate Enema 283 Mg/5 Ml Enema [place] 12/27/25 14:22 DAILY PRN Constipation Ezetimibe 10 mg 12/28/24 09:00 01/06/25 08:33 Ezetimibe 10 Mg Tablet PO 12/28/25 08:59 10 mg DAILY FERN Administration Ferrous Sulfate 324 mg 01/04/25 09:00 01/06/25 08:33 Ferrous Sulfate 324 Mg Tablet.Dr PO 01/04/26 08:59 324 mg DAILY FERN Administration Hydralazine HCl 50 mg 01/01/25 21:00 01/02/25 08:49 Hydralazine 50 Mg Tablet PO 01/01/26 20:59 Not Given BID FERN Ipratropium [place] 0.5 mg 12/27/24 20:00 01/06/25 09:22 Ipratropium [place] 0.5 Mg/2.5 Ml Vial.Neb INHALATION 12/27/25 19:59 Not Given QID.RESP FERN Isosorbide Dinitrate 10 mg 12/27/24 22:00 01/02/25 08:48 Isosorbide Dinitrate 10 Mg Tablet PO 12/27/25 21:59 10 mg TID FERN Administration Lactulose 30 gm 12/27/24 14:23 Lactulose 20 Gm/30 Ml Udc PO 12/27/25 14:22 DAILY PRN Constipation Melatonin 5 mg 01/01/25 22:00 01/05/25 20:20 Melatonin 5 Mg Tablet PO 01/01/26 21:59 5 mg QHS FERN Administration Metoprolol Succinate 25 mg 01/03/25 09:00 01/06/25 08:33 Metoprolol Succinate 25 Mg Tab.Er.24h PO 01/03/26 08:59 25 mg DAILY FERN Administration Oxycodone HCl 5 mg 12/27/24 14:35 12/30/24 05:40 Oxycodone Ir 5 Mg Tablet PO 5 mg Q4HR PRN Administration Pain Scale 4 - 7 Oxycodone HCl 10 mg 12/27/24 14:35 01/01/25 14:10 Oxycodone Ir 5 Mg Tablet PO 10 mg Q4HR PRN Administration Pain Scale 8 - 10 Phenyleph/Shark Oil/Min Oil/Petrol 1 applicator 01/04/25 23:02 Phenyleph/Mineral Oil/Petrolat 57 Gm Tube [place] 01/04/26 23:01 QID PRN Hemorrhoids Polyethylene Glycol 17 gm 12/28/24 09:00 01/06/25 08:33 Polyethylene Glycol 3350 17 Gm Powd.Pack PO 12/28/25 08:59 17 gm DAILY FERN Administration Sennosides 17.2 mg 12/28/24 12:00 Sennosides 8.6 Mg Tablet PO 12/28/25 11:59 DAILY@12 PRN If no BM in 2 days Sodium Chloride 0 ml 12/27/24 14:23 Sodium Chloride 0.9 % 10 Ml Syringe IV-PUSH 12/27/25 14:22 PRN PRN Flush Sodium Chloride 10 ml 12/28/24 06:00 01/06/25 05:38 Sodium Chloride 0.9 % 10 Ml Syringe IV-PUSH 12/28/25 05:59 10 ml Q8H FERN Administration Vitamin D 125 mcg 12/28/24 09:00 01/06/25 08:33 Cholecalciferol 125 Mcg (5,000 Units) Capsule PO 12/28/25 08:59 125 mcg DAILY FERN Administration Assessment/Plan Assessment/Plan (1) Femoral neck fracture: Plan: PT to improve pt's strength, endurance, bed mobility, transfers (sit-stand), standing balance, gait quality on level surfaces and stairs, coordination and functional ADL skills. Will also work to improve pt's safety awareness during transfers and ambulation. OT for basic ADL re-training (bathing, dressing, toileting, continence, grooming, feeding, transferring), to increase activity tolerance and functional mobility and to evaluate for adaptive and assistive devices. Will work to improve pt's endurance and educate pt on fall prevention and energy conservationtechniques-pacing strategies and proper breathing techniques during functional tasks. Patient education Pressure ulcer prophylaxis; encourage mobilization, frequent postural changes, pressure-relief techniques DVT prophylaxis Encourage deep breathing exercise incentive spirometry. Monitor bladder. Toileting schedule. Continue current bladder management, with scans as needed and CIC if needed. Start bowel care program every day to obtain continence, prevent ileus. Maintain fall precautions Gait and balance retraining Provision of the necessary gait aids and functional adaptive equipment to enhance the patient's a functional protestant Encourage deep breathing exercises and incentive spirometry RD evaluation Ensure adequate nutrition and hydration Discharge planning. (2) Acute on chronic anemia: (3) Acute kidney injury superimposed on CKD: (4) Mucopurulent chronic bronchitis: (5) Malignant neoplasm of right colon: (6) Iron deficiency anemia: (7) Impaired mobility and activities of daily living: (8) Chronic HFrEF (heart failure with reduced ejection fraction): (9) Type 2 diabetes mellitus with hyperglycemia: Qualifiers: Diabetes mellitus mcc insulin use: without middle or intermediate school principal use Qualified Code(s): E11.65 - Type 2 diabetes mellitus with hyperglycemia (10) Stage 4 chronic kidney disease: (11) A-fib: (12) Coronary artery disease: (13) Aspiration pneumonia: Plan Mr. Ren is a 84 year old male with multiple complex medical comorbidities as below including nonischemic cardiomyopathy with reduced ejection fraction and ICD/defibrillator in place, anticoagulated with Eliquis, chronic renal failure, likely underlying COPD, and others presenting with right femoral neck fracture after a fall, status post hemiarthroplasty December 24. -H&H remains low, 7.5/21.9. Trend. Renal function marginally better at 2.36/55. Nephrology is following. -Vitals remain stable. Patient has no new concerns or complaints. -Tolerating therapy and continues to progress towards functional baseline. FI with is scheduled for 01/09/2025. Patient wants to discharge home soon. Hospitalist to assist with management of comorbid medical conditions Pain control: Limit opioids. Wean as tolerated. Bowel and bladder:. Maintain bowel regimen. Monitor urine output. Skin: Maintain operative site, turn in position for offloading and pressure ulcer prevention Sleep: Optimize sleep-wake cycle DVT prophylaxis: Resume home Eliquis. Functional status: See therapy notes. With aspiration, have speech therapy screened patient for dysphagia Discharge planning:. Home in 2 weeks. I spent 18 minutes for services, including [id number] encounter with the patient, discussion of the case, plan of care, and exam; and sayhdpy-fr-ogoo activities, such as reviewing pertinent furniture sales consultant documentation, recent therapynotes, laboratory and radiology studies, and discussion of case with care team including physician, nursing, case manager specialist, and therapists. More than 50 % of time was spent on patient/family counseling or coordination ofcare. <Statement entered by Sotero Black MD - 01/06/25 13:41> Patient was personally seen by me, Dr. Black, on the day of encounter, reviewed the history and the relevant portions of the chart, including current orders, allied health and furniture sales consultant notes, labs/imaging and performed mckenna elements of exam and I formulated the plan of care and facilitated the medical decision making. I completed a substantive portion of this encounter, the medical decision makingportion of this note in its entirety, including Allied health note review, nursing note review, furniture sales consultant note review, discussion with nursing and case management, and more than 50% of my time was spent on counseling and coordination of care, time spent 25 minutes Documented By: Brenda Driscoll APRN 01/06/25 1 220 Signed By: <Electronically signed by EDWARD Driscoll> 01/06/25 1225 <Electronically signed by Sotero Black MD> 01/06/25 1341 [facility] Work Phone: [phone] Progress note Author Kaitlynn Emanuel [facility] Note Date/Time January 06, 2025 1:3 5pm [facility] [address] [place] [address] Nephrology Progress Note Signed Patient: Delano Ren MR#: [id number] : 1940 Acct:[id number] Age/Sex: 84 / M Adm Date: 5 Loc: Room: 5B8782-6 Type: ADM IN Attending Dr: Sotero Black MD Copies to: ~ Date of Service: 01/06/2025 Subjective Subjective Narrative: This is a 84 male with medical history of CKD IV, HTN, A-fib, HFrEF, DM, gout and HLD was initially admitted after mechanical fall for right hip fracture. Heunderwent surgery on December 23. His postoperative course was complicated by aspiration pneumonia and was started on IV antibiotic by the hospitalist. He also had acute on chronic anemia due to the possibly blood loss anemia and was transfused 2 unit of PRBC. He was also found to have WICHO on CKD in the setting of relative hypotension and blood loss anemia. His renal function improved withfluid resuscitation and blood transfusion. He was resumed on Lasix and had a good urine output. Patient moved to the inpatient rehab. Nephrology consultedfor WICHO on CKD care during his rehab stay. Interval history: Patient was seen and examined in his room. Patient is up in the chair. He said that he will continue to do better with no complaints. He is able to eat and drink. No nausea or vomiting. Blood pressure did improve after holding hydralazine and decrease metoprolol to25 mg daily. Patient also remain off amlodipine Apixaban is on hold because of concern about incipient bleeding at hip surgery site. Hemoglobin today slightly lower at 7.5 g/dL Renal function started to improve with creatinine down to 2.3 mg/dL. He has good urine output 1300 mL over the last 24-hour Exam Physical Exam Vital Signs: Temp Pulse Resp BP Pulse Ox O2 Del Method O2 Flow Rate 98.3 F 80 18 110/55 L 97 Room Air 1 01/06/25 08:38 01/06/25 08:38 01/06/25 08:38 01/06/25 08:38 01/06/25 08:38 01/06/25 08:38 12/30/24 05:00 Narrative: General: No acute distress Head :atraumatic normocephalic Eyes: PERRLA. Neck: no JVD no bruit. Heart: S1-S2. RRR Respiratory: Clear to auscultation. No wheezing. No crackles Abdomen: Soft, positive bowel sounds,no tenderness. Neurology: Awake alert oriented x3. No focal deficits Extremity. No cyanosis. No edema Skin: No skin rash Objective Intake and Output I&O: Intake & Output 01/03/25 01/04/25 01/05/25 01/06/25 23:59 23:59 23:59 23:59 Intake Total 1030 / 1030 920 / 920 240 / 240 900 / 900 Output Total 950 / 950 1525 / 1525 1325 / 1325 Balance 80 / 80 -605 / -605 -1085 / -1085 900 / 900 Weight 96.3 kg 94.6 kg 94.4 kg 95.3 kg Meds and Allergies Meds: Active Medications Acetaminophen (Acetaminophen 500 Mg Tablet) 500 mg PO Q4H PRN PRN Reason: Pain Stop: 12/27/25 14:22 Acetaminophen (Acetaminophen 500 Mg Tablet) 1,000 mg PO Q8HR PRN PRN Reason: pain Stop: 12/27/25 14:34 Last Admin: 01/05/25 20:20 Dose: 1,000 mg Al Hydrox/Mg Hydrox/Simethicone (Mag Hydrox/Al Hydrox/Simeth 30 Ml Udc) 30 ml PO Q4H PRN PRN Reason: Indigestion Stop: 12/27/25 14:22 Albuterol (Albuterol Neb 2.5 Mg/3 Ml Vial.Neb) 2.5 mg INHALATION Q2H PRN PRN Reason: Shortness Of Breath Stop: 12/27/25 14:34 Allopurinol (Allopurinol 100 Mg Tablet) 100 mg PO BID FERN Stop: 12/30/25 20:59 Last Admin: 01/06/25 08:33 Dose: 100 mg Amiodarone HCl (Amiodarone 200 Mg Tablet) 200 mg PO DAILY FERN Stop: 12/28/25 08:59 Last Admin: 01/06/25 08:33 Dose: 200 mg Apixaban (Apixaban 2.5 Mg Tablet) 2.5 mg PO BID FERN Stop: 12/28/25 08:59 Last Admin: 12/31/24 08:30 Dose: 2.5 mg Ascorbic Acid (Ascorbic Acid 500 Mg Tablet) 500 mg PO DAILY FERN Stop: 12/28/25 08:59 Last Admin: 01/06/25 08:33 Dose: 500 mg Balsam [place] Oil (Balsam Qian/[place] Oil Oint 60 Gm Tube) 1 applic TOPICAL BID PRN PRN Reason: tape caraballo Stop: 01/01/26 12:33 Last Admin: 01/04/25 21:05 Dose: 1 applic Bisacodyl (Bisacodyl 10 Mg Supp.Rect) 10 mg [place] DAILY PRN PRN Reason: Constipation Stop: 12/27/25 14:22 Budesonide/Formoterol Fumarate (Budesonide/Formoterol 160-4.5 Mcg 120 Puff/10.2 Gm Hfa.Aer.Ad) 2 puff INHALATION BID FERN Stop: 12/28/25 08:59 Last Admin: 01/06/25 06:28 Dose: Not Given Calcium Carbonate (Calcium Carbonate/Vitamin D3 500 Mg/200 Unit Tablet) 1 tab PO TID.WITH.MEALS FERN Stop: 12/27/25 16:59 Last Admin: 01/06/25 11:48 Dose: 1 tab Diclofenac Sodium (Diclofenac Sodium 1% Gel 100 Gm Tube) 2 gm TOPICAL QID PRN PRN Reason: Muscle Pain Stop: 01/02/26 10:34 Last Admin: 01/03/25 08:06 Dose: 2 gm Docusate Sodium (Docusate 100 Mg Capsule) 100 mg PO BID PRN PRN Reason: Constipation Stop: 12/27/25 14:22 Docusate Sodium (Docusate Enema 283 Mg/5 Ml Enema) 283 mg [place] DAILY PRN PRN Reason: Constipation Stop: 12/27/25 14:22 Ezetimibe (Ezetimibe 10 Mg Tablet) 10 mg PO DAILY FERN Stop: 12/28/25 08:59 Last Admin: 01/06/25 08:33 Dose: 10 mg Ferrous Sulfate (Ferrous Sulfate 324 Mg Tablet.Dr) 324 mg PO DAILY FERN Stop: 01/04/26 08:59 Last Admin: 01/06/25 08:33 Dose: 324 mg Hydralazine HCl (Hydralazine 50 Mg Tablet) 50 mg PO BID REPLACED BY [facility] Stop: 01/01/26 20:59 Last Admin: 01/02/25 08:49 Dose: Not Given Ipratropium [place] (Ipratropium [place] 0.5 Mg/2.5 Ml Vial.Neb) 0.5 mg INHALATION QID.RESP FERN Stop: 12/27/25 19:59 Last Admin: 01/06/25 09:22 Dose: Not Given Isosorbide Dinitrate (Isosorbide Dinitrate 10 Mg Tablet) 10 mg PO TID FERN Stop: 12/27/25 21:59 Last Admin: 01/02/25 08:48 Dose: 10 mg Lactulose (Lactulose 20 Gm/30 Ml Udc) 30 gm PO DAILY PRN PRN Reason: Constipation Stop: 12/27/25 14:22 Melatonin (Melatonin 5 Mg Tablet) 5 mg PO QHS FERN Stop: 01/01/26 21:59 Last Admin: 01/05/25 20:20 Dose: 5 mg Metoprolol Succinate (Metoprolol Succinate 25 Mg Tab.Er.24h) 25 mg PO DAILY REPLACED BY [facility] Stop: 01/03/26 08:59 Last Admin: 01/06/25 08:33 Dose: 25 mg Oxycodone HCl (Oxycodone Ir 5 Mg Tablet) 5 mg PO Q4HR PRN PRN Reason: Pain Scale 4 - 7 Last Admin: 12/30/24 05:40 Dose: 5 mg Oxycodone HCl (Oxycodone Ir 5 Mg Tablet) 10 mg PO Q4HR PRN PRN Reason: Pain Scale 8 - 10 Last Admin: 01/01/25 14:10 Dose: 10 mg Phenyleph/Shark Oil/Min Oil/Petrol (Phenyleph/Mineral Oil/Petrolat 57 Gm Tube) 1 applicator [place] QID PRN PRN Reason: Hemorrhoids Stop: 01/04/26 23:01 Polyethylene Glycol (Polyethylene Glycol 3350 17 Gm Powd.Pack) 17 gm PO DAILY FERN Stop: 12/28/25 08:59 Last Admin: 01/06/25 08:33 Dose: 17 gm Sennosides (Sennosides 8.6 Mg Tablet) 17.2 mg PO DAILY@12 PRN PRN Reason: If no BM in 2 days Stop: 12/28/25 11:59 Sodium Chloride (Sodium Chloride 0.9 % 10 Ml Syringe) 0 ml IV-PUSH PRN PRN PRN Reason: Flush Stop: 12/27/25 14:22 Sodium Chloride (Sodium Chloride 0.9 % 10 Ml Syringe) 10 ml IV-PUSH Q8H REPLACED BY [facility] Stop: 12/28/25 05:59 Last Admin: 01/06/25 05:38 Dose: 10 ml Vitamin D (Cholecalciferol 125 Mcg (5,000 Units) Capsule) 125 mcg PO DAILY REPLACED BY [facility] Stop: 12/28/25 08:59 Last Admin: 01/06/25 08:33 Dose: 125 mcg Allergies simvastatin Allergy (Unknown, Verified 12/19/24 08:50) Unknown Reaction Fmxgfqc-ZEK-YoO Reductase Inhibitor (Ncniwkw-Qmp-Uid Reductase Inhibitor) Allergy (Unknown, Verified 12/19/24 08:50) Muscle Pain tramadol Allergy (Verified 12/19/24 08:50) Itching niacin ER Allergy (Uncoded 08/22/24 08:31) itching Results - Nephrology Labs 01/06/25 04:50 01/06/25 04:50 Labs: 01/06/25 04:50 BUN 55 H Creatinine 2.36 H Radiology Impressions Impressions - last 24 hours: Any impression(s) listed above is documentation that was entered by the reading physician into a diagnostic report(s) for Delano Jefry Ren. I have reviewed the report(s) and am incorporating any findings in the treatment plan of this patient where applicable. A&P - Nephrology Assessment/Plan (1) Acute kidney injury superimposed on CKD: Assessment/Problem Details: He has a WICHO on CKD due to the relative hypotension and postoperative blood lossanemia creatinine function has improved however started to drift up again with lower blood pressure and drop of hemoglobin. Patient back on Eliquis. (2) Aspiration pneumonia: Assessment/Problem Details: Recovered, he is done with antibiotics (3) Stage 4 chronic kidney disease: Assessment/Problem Details: He has a CKD due to the longstanding DM and HTN with baseline creatinine 2.6-3 mg/dL. (4) Chronic HFrEF (heart failure with reduced ejection fraction): Assessment/Problem Details: Patient appears to be well compensated. (5) Femoral neck fracture: Assessment/Problem Details: He is s/p ORIF on 12/23/2024 (6) Hypertensive chronic kidney disease with stage 1 through stage 4 chronic kidney disease, or unspecified chronic kidney disease: Assessment/Problem Details: His blood pressure is controlled. Plan * Renal function continues to improve with better blood pressure after cutting down multiple blood pressure medications including amlodipine and hydralazine. Metoprolol succinate was decreased to 25 mg daily as well. Serum creatinine down to 2.3 mg deciliter * Patient had 2 units of packed RBCs during this admission for anemia. Hemoglobin is slowly trending down. Eliquis currently on hold. Will defer blood transfusion per primary service * Stool for blood was positive. GI was consulted. Patient is known to have hemorrhoids on August 2024. No need to repeat colonoscopy. * Check renal function and CBC daily. Documented By: Kaitlynn Emanuel MD 01/06/251331 Signed By: <Electronically signed by Kaitlynn Emanuel MD> 01/06/251334 [facility] Work Phone: [phone] 601-579803-24-2025 Progress note Author Clyde Bedolla [facility] Note Date/Time January 05, 2025 10: 19pm [facility] [address] [place] [address] Physiatry(Rehab) Progress Note Signed Patient: Delano Ren MR#: [id number] : 1940 Acct:[id number] Age/Sex: 84 / M Adm Date: 5 Loc: Room: [address] [place] [address] Type: ADM IN Attending Dr: Sotero Black MD Copies to: ~ Date of Service: 01/05/2025 Subjective Subjective Narrative: Mr. Ren is a 84 year old male with multiple complex medical comorbidities as below including nonischemic cardiomyopathy with reduced ejection fraction and ICD/defibrillator in place, anticoagulated with Eliquis, chronic renal failure, likely underlying COPD, and others presenting with right femoral neck fracture after a fall, status post hemiarthroplasty December 24. Postop course notable for acute on chronic renal failure and hypoxemic respiratory failure, multifactorial, completed treatment for aspiration pneumonia. Interval history: Patient was seen and evaluated at bedside. He is in no distress. He denies majorconcerns today. Tolerating therapy. Feels he is getting stronger. Review of Systems Review of Systems All other systems reviewed & are negative unless noted below or in HPI Exam Physical Exam Vital Signs: Temp Pulse Resp BP Pulse Ox O2 Del Method O2 Flow Rate 98 F 67 16 116/59 L 96 Room Air 1 01/05/25 14:44 01/05/25 14:44 01/05/25 14:44 01/05/25 14:44 01/05/25 14:44 01/05/25 14:44 12/30/24 05:00 Narrative: General: Awake, alert, oriented x3 HENT: Normal to inspection, normocephalic, atraumatic. Mild pallor of the skin. Eyes: PERRL, normal conjunctiva and sclera Neck: Normal ROM, normal visual inspection. Trachea midline. Cardio: Regular heart rate and rhythm Respiratory: Clear to auscultation bilaterally. Normal respiratory effort. No respiratory distress. GI: Abdomen soft, nontender, nondistended, active bowel sounds x4 quadrants Neuro: CN II-XII intact. Strength 5/5, equal bilaterally Extremities: No edema, erythema, cyanosis Psych: Mood and affect appropriate. Normal speech. Objective Labs 01/05/25 04:51 01/05/25 04:51 Labs: Laboratory Results - last 24 hr 01/05/25 04:51 Corrected WBC 9.3 RBC 2.39 L Hgb 7.9 L Hct 22.4 L MCV 93.6 MCH 32.9 MCHC 35.2 RDW 14.7 Plt Count 381 MPV 6.9 PHA Creatinine Clear 24.47 Sodium 139 Potassium 4.3 Chloride 104 Carbon Dioxide 28.5 Anion Gap 10.8 BUN 64 H Creatinine 2.73 H Est GFR (CKD-EPI) 22.517 Glucose 107 H Calcium 7.6 L Medications and Allergies Allergies and Active Meds: Allergies simvastatin Allergy (Unknown, Verified 12/19/24 08:50) Unknown Reaction Oedtesu-UNX-SuQ Reductase Inhibitor (Otmzzry-Pff-Mlr Reductase Inhibitor) Allergy (Unknown, Verified 12/19/24 08:50) Muscle Pain tramadol Allergy (Verified 12/19/24 08:50) Itching niacin ER Allergy (Uncoded 08/22/24 08:31) itching Active Medications Generic Name Dose Route Start Last Admin Trade Name Freq PRN Reason Stop Dose Admin Acetaminophen 500 mg 12/27/24 14:23 Acetaminophen 500 Mg Tablet PO 12/27/25 14:22 Q4H PRN Pain Acetaminophen 1,000 mg 12/27/24 14:35 01/05/25 20:20 Acetaminophen 500 Mg Tablet PO 12/27/25 14:34 1,000 mg Q8HR PRN Administration pain Al Hydrox/Mg Hydrox/Simethicone 30 ml 12/27/24 14:23 Mag Hydrox/Al Hydrox/Simeth 30 Ml Udc PO 12/27/25 14:22 Q4H PRN Indigestion Albuterol 2.5 mg 12/27/24 14:35 Albuterol Neb 2.5 Mg/3 Ml Vial.Neb INHALATION 12/27/25 14:34 Q2H PRN Shortness Of Breath Allopurinol 100 mg 12/30/24 21:00 01/05/25 20:20 Allopurinol 100 Mg Tablet PO 12/30/25 20:59 100 mg BID FERN Administration Amiodarone HCl 200 mg 12/28/24 09:00 01/05/25 09:33 Amiodarone 200 Mg Tablet PO 12/28/25 08:59 200 mg DAILY FERN Administration Apixaban 2.5 mg 12/28/24 09:00 12/31/24 08:30 Apixaban 2.5 Mg Tablet PO 12/28/25 08:59 2.5 mg BID FERN Administration Ascorbic Acid 500 mg 12/28/24 09:00 01/05/25 09:34 Ascorbic Acid 500 Mg Tablet PO 12/28/25 08:59 500 mg DAILY FERN Administration Balsam [place] Oil 1 applic 01/01/25 12:34 01/04/25 21:05 Balsam [place] Oil Oint 60 Gm Tube TOPICAL 01/01/26 12:33 1 applic BID PRN Administration tape caraballo Bisacodyl 10 mg 12/27/24 14:23 Bisacodyl 10 Mg Supp.Rect [place] 12/27/25 14:22 DAILY PRN Constipation Budesonide/Formoterol Fumarate 2 puff 12/28/24 09:00 01/05/25 18:09 Budesonide/Formoterol 160-4.5 Mcg 120 Puff/10.2 Gm Hfa.Aer.Ad INHALATION 12/28/25 08:59 Not Given BID FERN Calcium Carbonate 1 tab 12/27/24 17:00 01/05/25 17:26 Calcium Carbonate/Vitamin D3 500 Mg/200 Unit Tablet PO 12/27/25 16:59 1 tab TID.WITH.MEALS FERN Administration Diclofenac Sodium 2 gm 01/02/25 10:35 01/03/25 08:06 Diclofenac Sodium 1% Gel 100 Gm Tube TOPICAL 01/02/26 10:34 2 gm QID PRN Administration Muscle Pain Docusate Sodium 100 mg 12/27/24 14:23 Docusate 100 Mg Capsule PO 12/27/25 14:22 BID PRN Constipation Docusate Sodium 283 mg 12/27/24 14:23 Docusate Enema 283 Mg/5 Ml Enema [place] 12/27/25 14:22 DAILY PRN Constipation Ezetimibe 10 mg 12/28/24 09:00 01/05/25 09:34 Ezetimibe 10 Mg Tablet PO 12/28/25 08:59 10 mg DAILY FERN Administration Ferrous Sulfate 324 mg 01/04/25 09:00 01/05/25 09:34 Ferrous Sulfate 324 Mg Tablet. PO 01/04/26 08:59 324 mg DAILY FERN Administration Hydralazine HCl 50 mg 01/01/25 21:00 01/02/25 08:49 Hydralazine 50 Mg Tablet PO 01/01/26 20:59 Not Given BID FERN Ipratropium [place] 0.5 mg 12/27/24 20:00 01/05/25 18:09 Ipratropium [place] 0.5 Mg/2.5 Ml Vial.Neb INHALATION 12/27/25 19:59 Not Given QID.RESP FERN Isosorbide Dinitrate 10 mg 12/27/24 22:00 01/02/25 08:48 Isosorbide Dinitrate 10 Mg Tablet PO 12/27/25 21:59 10 mg TID FERN Administration Lactulose 30 gm 12/27/24 14:23 Lactulose 20 Gm/30 Ml Udc PO 12/27/25 14:22 DAILY PRN Constipation Melatonin 5 mg 01/01/25 22:00 01/05/25 20:20 Melatonin 5 Mg Tablet PO 01/01/26 21:59 5 mg QHS FERN Administration Metoprolol Succinate 25 mg 01/03/25 09:00 01/05/25 09:34 Metoprolol Succinate 25 Mg Tab.Er.24h PO 01/03/26 08:59 25 mg DAILY FERN Administration Oxycodone HCl 5 mg 12/27/24 14:35 12/30/24 05:40 Oxycodone Ir 5 Mg Tablet PO 5 mg Q4HR PRN Administration Pain Scale 4 - 7 Oxycodone HCl 10 mg 12/27/24 14:35 01/01/25 14:10 Oxycodone Ir 5 Mg Tablet PO 10 mg Q4HR PRN Administration Pain Scale 8 - 10 Phenyleph/Shark Oil/Min Oil/Petrol 1 applicator 01/04/25 23:02 Phenyleph/Mineral Oil/Petrolat 57 Gm Tube [place] 01/04/26 23:01 QID PRN Hemorrhoids Polyethylene Glycol 17 gm 12/28/24 09:00 01/05/25 09:36 Polyethylene Glycol 3350 17 Gm Powd.Pack PO 12/28/25 08:59 17 gm DAILY FERN Administration Sennosides 17.2 mg 12/28/24 12:00 Sennosides 8.6 Mg Tablet PO 12/28/25 11:59 DAILY@12 PRN If no BM in 2 days Sodium Chloride 0 ml 12/27/24 14:23 Sodium Chloride 0.9 % 10 Ml Syringe IV-PUSH 12/27/25 14:22 PRN PRN Flush Sodium Chloride 10 ml 12/28/24 06:00 01/05/25 20:20 Sodium Chloride 0.9 % 10 Ml Syringe IV-PUSH 12/28/25 05:59 10 ml Q8H FERN Administration Vitamin D 125 mcg 12/28/24 09:00 01/05/25 09:34 Cholecalciferol 125 Mcg (5,000 Units) Capsule PO 12/28/25 08:59 125 mcg DAILY FERN Administration Assessment/Plan Assessment/Plan (1) Femoral neck fracture: Plan: PT to improve pt's strength, endurance, bed mobility, transfers (sit-stand), standing balance, gait quality on level surfaces and stairs, coordination and functional ADL skills. Will also work to improve pt's safety awareness during transfers and ambulation. OT for basic ADL re-training (bathing, dressing, toileting, continence, grooming, feeding, transferring), to increase activity tolerance and functional mobility and to evaluate for adaptive and assistive devices. Will work to improve pt's endurance and educate pt on fall prevention and energy conservationtechniques-pacing strategies and proper breathing techniques during functional tasks. Patient education Pressure ulcer prophylaxis; encourage mobilization, frequent postural changes, pressure-relief techniques DVT prophylaxis Encourage deep breathing exercise incentive spirometry. Monitor bladder. Toileting schedule. Continue current bladder management, with scans as needed and CIC if needed. Start bowel care program every day to obtain continence, prevent ileus. Maintain fall precautions Gait and balance retraining Provision of the necessary gait aids and functional adaptive equipment to enhance the patient's a functional protestant Encourage deep breathing exercises and incentive spirometry RD evaluation Ensure adequate nutrition and hydration Discharge planning. (2) Acute on chronic anemia: (3) Acute kidney injury superimposed on CKD: (4) Mucopurulent chronic bronchitis: (5) Malignant neoplasm of right colon: (6) Iron deficiency anemia: (7) Impaired mobility and activities of daily living: (8) Chronic HFrEF (heart failure with reduced ejection fraction): (9) Type 2 diabetes mellitus with hyperglycemia: Qualifiers: Diabetes mellitus mcc insulin use: without mcc use Qualified Code(s): E11.65 - Type 2 diabetes mellitus with hyperglycemia (10) Stage 4 chronic kidney disease: (11) A-fib: (12) Coronary artery disease: (13) Aspiration pneumonia: Plan Mr. Ren is a 84 year old male with multiple complex medical comorbidities as below including nonischemic cardiomyopathy with reduced ejection fraction and ICD/defibrillator in place, anticoagulated with Eliquis, chronic renal failure, likely underlying COPD, and others presenting with right femoral neck fracture after a fall, status post hemiarthroplasty December 24. -No major concerns today -No transfusion unless Hgb<7.5 per nephrology -GI has seen the patient per family request. Positive FOBT likely due to hemorrhoids. No inpatient intervention is warranted Hospitalist to assist with management of comorbid medical conditions Pain control: Limit opioids. Wean as tolerated. Bowel and bladder:. Maintain bowel regimen. Monitor urine output. Skin: Maintain operative site, turn in position for offloading and pressure ulcer prevention Sleep: Optimize sleep-wake cycle DVT prophylaxis: Resume home Eliquis. Functional status: See therapy notes. With aspiration, have speech therapy screened patient for dysphagia Discharge planning:. Home in 2 weeks. I spent 25 minutes for services, including [id number] encounter with the patient, discussion of the case, plan of care, and exam; and [id number]-erww activities, such as reviewing pertinent furniture sales consultant documentation, recent therapynotes, laboratory and radiology studies, and discussion of case with care team including physician, nursing, case manager specialist, and therapists. More than 50 % of time was spent on patient/family counseling or coordination ofcare. Documented By: Clyde Bedolla MD [id number] Signed By: <Electronically signed by Clyde Bedolla MD> 01/05/257 [facility] Work Phone: [phone]) 178-589003-23-2025 Progress note Author Krysten Mcclelland [facility] Note Date/Time January 05, 2025 3:2 4pm [facility] [address] [place] [address] Hospitalist Progress Note Signed Patient: Delano Ren MR#: [id number] : 1940 Acct:[id number] Age/Sex: 84 / M Adm Date: 5 Loc: Room: 3J6114-7 Type: ADM IN Attending Dr: Sotero Black MD Copies to: ~ Date of Service: 01/05/2025 Subjective Subjective Narrative: Seen and examined in follow-up, sitting up in wheelchair and reports continued to do well with physical therapy. On room air, with no shortness of breath, slight bilateral lower extremity edema. Vital signs reviewed, blood pressure improved and well-controlled. 7.9 today, no signs and symptoms of overt bleeding. BMP with renal function at baseline, nephrology following. Exam Physical Exam Vital Signs: Temp Pulse Resp BP Pulse Ox O2 Del Method O2 Flow Rate 97.8 F 68 20 115/66 96 Room Air 1 01/05/25 05:06 01/05/25 09:38 01/05/25 05:06 01/05/25 09:38 01/05/25 05:06 01/05/25 07:30 12/30/24 05:00 Narrative: CONST-alert, awake, sitting up in chair CARDIAC?normal rate, regular rhythm, normal S1 & S2. PULM?diminished without wheeze or rhonchi, RA, no accessory muscle use or cough noted ABD ? Soft. Bowel sounds are normal. No distention No tenderness EXTREM?+1 edema BLE calves nontender SKIN? W/D good turgor Objective Lab Results 01/05/25 04:51 01/05/25 04:51 Meds Allergies and Active Meds Allergies simvastatin Allergy (Unknown, Verified 12/19/24 08:50) Unknown Reaction Ztfvlna-QPS-PtE Reductase Inhibitor (Pnshtia-Hnf-Uqx Reductase Inhibitor) Allergy (Unknown, Verified 12/19/24 08:50) Muscle Pain tramadol Allergy (Verified 12/19/24 08:50) Itching niacin ER Allergy (Uncoded 08/22/24 08:31) itching Active Meds: Active Medications Generic Name Dose Route Start Last Admin Trade Name Freq PRN Reason Stop Dose Admin Acetaminophen 500 mg 12/27/24 14:23 Acetaminophen 500 Mg Tablet PO 12/27/25 14:22 Q4H PRN Pain Acetaminophen 1,000 mg 12/27/24 14:35 01/02/25 21:00 Acetaminophen 500 Mg Tablet PO 12/27/25 14:34 1,000 mg Q8HR PRN Administration pain Al Hydrox/Mg Hydrox/Simethicone 30 ml 12/27/24 14:23 Mag Hydrox/Al Hydrox/Simeth 30 Ml Udc PO 12/27/25 14:22 Q4H PRN Indigestion Albuterol 2.5 mg 12/27/24 14:35 Albuterol Neb 2.5 Mg/3 Ml Vial.Neb INHALATION 12/27/25 14:34 Q2H PRN Shortness Of Breath Allopurinol 100 mg 12/30/24 21:00 01/05/25 09:33 Allopurinol 100 Mg Tablet PO 12/30/25 20:59 100 mg BID FERN Administration Amiodarone HCl 200 mg 12/28/24 09:00 01/05/25 09:33 Amiodarone 200 Mg Tablet PO 12/28/25 08:59 200 mg DAILY FERN Administration Apixaban 2.5 mg 12/28/24 09:00 12/31/24 08:30 Apixaban 2.5 Mg Tablet PO 12/28/25 08:59 2.5 mg BID FERN Administration Ascorbic Acid 500 mg 12/28/24 09:00 01/05/25 09:34 Ascorbic Acid 500 Mg Tablet PO 12/28/25 08:59 500 mg DAILY FERN Administration Balsam [place] Oil 1 applic 01/01/25 12:34 01/04/25 21:05 Balsam [place] Oil Oint 60 Gm Tube TOPICAL 01/01/26 12:33 1 applic BID PRN Administration tape caraballo Bisacodyl 10 mg 12/27/24 14:23 Bisacodyl 10 Mg Supp.Rect [place] 12/27/25 14:22 DAILY PRN Constipation Budesonide/Formoterol Fumarate 2 puff 12/28/24 09:00 01/05/25 06:51 Budesonide/Formoterol 160-4.5 Mcg 120 Puff/10.2 Gm Hfa.Aer.Ad INHALATION 12/28/25 08:59 Not Given BID FERN Calcium Carbonate 1 tab 12/27/24 17:00 01/05/25 12:24 Calcium Carbonate/Vitamin D3 500 Mg/200 Unit Tablet PO 12/27/25 16:59 1 tab TID.WITH.MEALS FERN Administration Diclofenac Sodium 2 gm 01/02/25 10:35 01/03/25 08:06 Diclofenac Sodium 1% Gel 100 Gm Tube TOPICAL 01/02/26 10:34 2 gm QID PRN Administration Muscle Pain Docusate Sodium 100 mg 12/27/24 14:23 Docusate 100 Mg Capsule PO 12/27/25 14:22 BID PRN Constipation Docusate Sodium 283 mg 12/27/24 14:23 Docusate Enema 283 Mg/5 Ml Enema [place] 12/27/25 14:22 DAILY PRN Constipation Ezetimibe 10 mg 12/28/24 09:00 01/05/25 09:34 Ezetimibe 10 Mg Tablet PO 12/28/25 08:59 10 mg DAILY FERN Administration Ferrous Sulfate 324 mg 01/04/25 09:00 01/05/25 09:34 Ferrous Sulfate 324 Mg Tablet.Dr PO 01/04/26 08:59 324 mg DAILY FERN Administration Hydralazine HCl 50 mg 01/01/25 21:00 01/02/25 08:49 Hydralazine 50 Mg Tablet PO 01/01/26 20:59 Not Given BID FERN Ipratropium [place] 0.5 mg 12/27/24 20:00 01/05/25 13:22 Ipratropium [place] 0.5 Mg/2.5 Ml Vial.Neb INHALATION 12/27/25 19:59 Not Given QID.RESP FERN Isosorbide Dinitrate 10 mg 12/27/24 22:00 01/02/25 08:48 Isosorbide Dinitrate 10 Mg Tablet PO 12/27/25 21:59 10 mg TID FERN Administration Lactulose 30 gm 12/27/24 14:23 Lactulose 20 Gm/30 Ml Udc PO 12/27/25 14:22 DAILY PRN Constipation Melatonin 5 mg 01/01/25 22:00 01/04/25 21:05 Melatonin 5 Mg Tablet PO 01/01/26 21:59 5 mg QHS FERN Administration Metoprolol Succinate 25 mg 01/03/25 09:00 01/05/25 09:34 Metoprolol Succinate 25 Mg Tab.Er.24h PO 01/03/26 08:59 25 mg DAILY FERN Administration Oxycodone HCl 5 mg 12/27/24 14:35 12/30/24 05:40 Oxycodone Ir 5 Mg Tablet PO 5 mg Q4HR PRN Administration Pain Scale 4 - 7 Oxycodone HCl 10 mg 12/27/24 14:35 01/01/25 14:10 Oxycodone Ir 5 Mg Tablet PO 10 mg Q4HR PRN Administration Pain Scale 8 - 10 Phenyleph/Shark Oil/Min Oil/Petrol 1 applicator 01/04/25 23:02 Phenyleph/Mineral Oil/Petrolat 57 Gm Tube [place] 01/04/26 23:01 QID PRN Hemorrhoids Polyethylene Glycol 17 gm 12/28/24 09:00 01/05/25 09:36 Polyethylene Glycol 3350 17 Gm Powd.Pack PO 12/28/25 08:59 17 gm DAILY FERN Administration Sennosides 17.2 mg 12/28/24 12:00 Sennosides 8.6 Mg Tablet PO 12/28/25 11:59 DAILY@12 PRN If no BM in 2 days Sodium Chloride 0 ml 12/27/24 14:23 Sodium Chloride 0.9 % 10 Ml Syringe IV-PUSH 12/27/25 14:22 PRN PRN Flush Sodium Chloride 10 ml 12/28/24 06:00 01/05/25 05:07 Sodium Chloride 0.9 % 10 Ml Syringe IV-PUSH 12/28/25 05:59 10 ml Q8H FERN Administration Vitamin D 125 mcg 12/28/24 09:00 01/05/25 09:34 Cholecalciferol 125 Mcg (5,000 Units) Capsule PO 12/28/25 08:59 125 mcg DAILY EFRN Administration A&P - Hospitalist Assessment/Plan (1) Acute on chronic anemia: (2) Acute kidney injury superimposed on CKD: (3) Aspiration pneumonia: (4) Chronic HFrEF (heart failure with reduced ejection fraction): (5) Paroxysmal atrial fibrillation: (6) Nonischemic dilated cardiomyopathy: (7) Hypercholesteremia: (8) Femoral neck fracture: Plan Fall Right hip fracture s/p right hip hemiarthroplasty 12/23/2024 Postoperative anemia Aspiration pneumonia, resolved -Further plan of care per PMR team for rehabilitative therapy, pain control bowel regimen, DVT prophylaxis, surgical wound care -Patient completed antibiotic regimen December 28 -Defer postoperative questions or concerns to orthopedics team. Vitamin/mineraltherapy per Ortho preference Postoperative anemia with positive FOBT -Hemoglobin 7.9 on 01/05,preop hemoglobin 11.8, GI consulted reporting surveillance colonoscopy already done on 08/22/2005/04/2024 showing diminutive colonicpolyps and internal hemorrhoids. Etiology of positive FOBT is likely related tohemorrhoids per GI. No need to repeat colonoscopy ?Continue continue ferrous sulfate, apixaban on hold, monitor CBC to keep hemoglobin above WICHO on CKD 4 -Creatine 2.73, baseline creatinine 2.6-3 mg/dL, nephrology following. Gout -continues allopurinol -will give Colchicine 12/29 based on exam RLE edema -venous doppler negative for DVT Chronic conditions 1. COPD?albuterol, budesonide/formoterol, ipratropium. Stable respiratory status no hypoxia 2. hyperlipidemia?ezetimibe 3. HFrEF, cardiomyopathy s/p ICD, atrial fibrillation chronic anticoagulation, hypertension?amiodarone, metoprolol, hydralazine, isosorbide and on hold. Bloodpressure will improve, well-controlled Documented By: Krysten Mcclelland APRN 01/05/25 1401 Signed By: <Electronically signed by EDWARD Mcclelland> 01/05/25 1422 <Electronically signed by Sudha Sood MD> 01/05/25 9494 [facility] Work Phone: [phone] 170-301803-23-2025 Progress note [facility] Note Date/Time January 05, 2025 2:1 9pm [facility] [address] [place] [address] Nephrology Progress Note Signed Patient: Delano Ren MR#: [id number] : 1940 Acct:[id number] Age/Sex: 84 / M Adm Date: 5 Loc: Room: [address] [place] [address] Type: ADM IN Attending Dr: Sotero Black MD Copies to: ~ Date of Service: 01/05/2025 Subjective Subjective Narrative: This is a 84 male with medical history of CKD IV, HTN, A-fib, HFrEF, DM, gout and HLD was initially admitted after mechanical fall for right hip fracture. Heunderwent surgery on December 23. His postoperative course was complicated by aspiration pneumonia and was started on IV antibiotic by the hospitalist. He also had acute on chronic anemia due to the possibly blood loss anemia and was transfused 2 unit of PRBC. He was also found to have WICHO on CKD in the setting of relative hypotension and blood loss anemia. His renal function improved withfluid resuscitation and blood transfusion. He was resumed on Lasix and had a good urine output. Patient moved to the inpatient rehab. Nephrology consultedfor WICHO on CKD care during his rehab stay. Interval history: Patient is up in the chair. He said that he will continue to do better with no complaints. He is able to eat and drink. No nausea or vomiting. Blood pressure did improve and stable 115/66 today after holding hydralazine anddecrease metoprolol to 25 mg daily. Amlodipine was stopped. Apixaban is on hold because of concern about incipient bleeding at hip surgery site. Hemoglobin did improve after transfusion and stable around 8 g/dL. Renal function started to improve with creatinine down to 2.73 mg/dL. He has good urine output 1400 mL over the last 24-hour Exam Physical Exam Vital Signs: Temp Pulse Resp BP Pulse Ox O2 Del Method O2 Flow Rate 36.6 C 68 20 115/66 96 Room Air 1 01/05/25 05:06 01/05/25 09:38 01/05/25 05:06 01/05/25 09:38 01/05/25 05:06 01/05/25 07:30 12/30/24 05:00 Narrative: Constitutional: Appears comfortable and not in distress HEENT: Significant pallor with no jaundice or cyanosis. Mucous membranes are moist. Cardiovascular: RRR, normal S1-S2, no gallop or rub, No JVD Respiratory: Good bilateral air entry no wheezing or crackles Gastrointestinal: Soft, non tender, positive bowel sounds Extremities: 1+ edema Skin: No rashes or bruises Musculoskeletal: s/p right hip hemiarthroplasty on 12/23/2024 Neurology: Awake, alert, oriented ?3, No focal motor or sensory deficits Psych: Normal mood and affect Objective Intake and Output I&O: Intake & Output 01/02/25 01/03/25 01/04/25 01/05/25 23:59 23:59 23:59 23:59 Intake Total 1240 / 1240 1030 / 1030 920 / 920 Output Total 950 / 950 950 / 950 1525 / 1525 450 / 450 Balance 290 / 290 80 / 80 -605 / -605 -450 / -450 Weight 96.8 kg 96.3 kg 94.6 kg 94.4 kg Meds and Allergies Meds: Active Medications Acetaminophen (Acetaminophen 500 Mg Tablet) 500 mg PO Q4H PRN PRN Reason: Pain Stop: 12/27/25 14:22 Acetaminophen (Acetaminophen 500 Mg Tablet) 1,000 mg PO Q8HR PRN PRN Reason: pain Stop: 12/27/25 14:34 Last Admin: 01/02/25 21:00 Dose: 1,000 mg Al Hydrox/Mg Hydrox/Simethicone (Mag Hydrox/Al Hydrox/Simeth 30 Ml Udc) 30 ml PO Q4H PRN PRN Reason: Indigestion Stop: 12/27/25 14:22 Albuterol (Albuterol Neb 2.5 Mg/3 Ml Vial.Neb) 2.5 mg INHALATION Q2H PRN PRN Reason: Shortness Of Breath Stop: 12/27/25 14:34 Allopurinol (Allopurinol 100 Mg Tablet) 100 mg PO BID FERN Stop: 12/30/25 20:59 Last Admin: 01/05/25 09:33 Dose: 100 mg Amiodarone HCl (Amiodarone 200 Mg Tablet) 200 mg PO DAILY FERN Stop: 12/28/25 08:59 Last Admin: 01/05/25 09:33 Dose: 200 mg Apixaban (Apixaban 2.5 Mg Tablet) 2.5 mg PO BID FERN Stop: 12/28/25 08:59 Last Admin: 12/31/24 08:30 Dose: 2.5 mg Ascorbic Acid (Ascorbic Acid 500 Mg Tablet) 500 mg PO DAILY FERN Stop: 12/28/25 08:59 Last Admin: 01/05/25 09:34 Dose: 500 mg Balsam [place] Oil (Balsam [place] Oil Oint 60 Gm Tube) 1 applic TOPICAL BID PRN PRN Reason: tape caraballo Stop: 01/01/26 12:33 Last Admin: 01/04/25 21:05 Dose: 1 applic Bisacodyl (Bisacodyl 10 Mg Supp.Rect) 10 mg [place] DAILY PRN PRN Reason: Constipation Stop: 12/27/25 14:22 Budesonide/Formoterol Fumarate (Budesonide/Formoterol 160-4.5 Mcg 120 Puff/10.2 Gm Hfa.Aer.Ad) 2 puff INHALATION BID FERN Stop: 12/28/25 08:59 Last Admin: 01/05/25 06:51 Dose: Not Given Calcium Carbonate (Calcium Carbonate/Vitamin D3 500 Mg/200 Unit Tablet) 1 tab PO TID.WITH.MEALS FERN Stop: 12/27/25 16:59 Last Admin: 01/05/25 12:24 Dose: 1 tab Diclofenac Sodium (Diclofenac Sodium 1% Gel 100 Gm Tube) 2 gm TOPICAL QID PRN PRN Reason: Muscle Pain Stop: 01/02/26 10:34 Last Admin: 01/03/25 08:06 Dose: 2 gm Docusate Sodium (Docusate 100 Mg Capsule) 100 mg PO BID PRN PRN Reason: Constipation Stop: 12/27/25 14:22 Docusate Sodium (Docusate Enema 283 Mg/5 Ml Enema) 283 mg [place] DAILY PRN PRN Reason: Constipation Stop: 12/27/25 14:22 Ezetimibe (Ezetimibe 10 Mg Tablet) 10 mg PO DAILY FERN Stop: 12/28/25 08:59 Last Admin: 01/05/25 09:34 Dose: 10 mg Ferrous Sulfate (Ferrous Sulfate 324 Mg Tablet.Dr) 324 mg PO DAILY FERN Stop: 01/04/26 08:59 Last Admin: 01/05/25 09:34 Dose: 324 mg Hydralazine HCl (Hydralazine 50 Mg Tablet) 50 mg PO BID FERN Stop: 01/01/26 20:59 Last Admin: 01/02/25 08:49 Dose: Not Given Ipratropium [place] (Ipratropium [place] 0.5 Mg/2.5 Ml Vial.Neb) 0.5 mg INHALATION QID.RESP FERN Stop: 12/27/25 19:59 Last Admin: 01/05/25 13:22 Dose: Not Given Isosorbide Dinitrate (Isosorbide Dinitrate 10 Mg Tablet) 10 mg PO TID FERN Stop: 12/27/25 21:59 Last Admin: 01/02/25 08:48 Dose: 10 mg Lactulose (Lactulose 20 Gm/30 Ml Udc) 30 gm PO DAILY PRN PRN Reason: Constipation Stop: 12/27/25 14:22 Melatonin (Melatonin 5 Mg Tablet) 5 mg PO QHS FERN Stop: 01/01/26 21:59 Last Admin: 01/04/25 21:05 Dose: 5 mg Metoprolol Succinate (Metoprolol Succinate 25 Mg Tab.Er.24h) 25 mg PO DAILY REPLACED BY [facility] Stop: 01/03/26 08:59 Last Admin: 01/05/25 09:34 Dose: 25 mg Oxycodone HCl (Oxycodone Ir 5 Mg Tablet) 5 mg PO Q4HR PRN PRN Reason: Pain Scale 4 - 7 Last Admin: 12/30/24 05:40 Dose: 5 mg Oxycodone HCl (Oxycodone Ir 5 Mg Tablet) 10 mg PO Q4HR PRN PRN Reason: Pain Scale 8 - 10 Last Admin: 01/01/25 14:10 Dose: 10 mg Phenyleph/Shark Oil/Min Oil/Petrol (Phenyleph/Mineral Oil/Petrolat 57 Gm Tube) 1 applicator [place] QID PRN PRN Reason: Hemorrhoids Stop: 01/04/26 23:01 Polyethylene Glycol (Polyethylene Glycol 3350 17 Gm Powd.Pack) 17 gm PO DAILY REPLACED BY [facility] Stop: 12/28/25 08:59 Last Admin: 01/05/25 09:36 Dose: 17 gm Sennosides (Sennosides 8.6 Mg Tablet) 17.2 mg PO DAILY@12 PRN PRN Reason: If no BM in 2 days Stop: 12/28/25 11:59 Sodium Chloride (Sodium Chloride 0.9 % 10 Ml Syringe) 0 ml IV-PUSH PRN PRN PRN Reason: Flush Stop: 12/27/25 14:22 Sodium Chloride (Sodium Chloride 0.9 % 10 Ml Syringe) 10 ml IV-PUSH Q8H REPLACED BY [facility] Stop: 12/28/25 05:59 Last Admin: 01/05/25 05:07 Dose: 10 ml Vitamin D (Cholecalciferol 125 Mcg (5,000 Units) Capsule) 125 mcg PO DAILY REPLACED BY [facility] Stop: 12/28/25 08:59 Last Admin: 01/05/25 09:34 Dose: 125 mcg Allergies simvastatin Allergy (Unknown, Verified 12/19/24 08:50) Unknown Reaction Tswcvpb-BWX-UwP Reductase Inhibitor (Wrenhju-Cop-Epb Reductase Inhibitor) Allergy (Unknown, Verified 12/19/24 08:50) Muscle Pain tramadol Allergy (Verified 12/19/24 08:50) Itching niacin ER Allergy (Uncoded 08/22/24 08:31) itching Results - Nephrology Labs 01/05/25 04:51 01/05/25 04:51 Labs: 01/05/25 04:51 BUN 64 H Creatinine 2.73 H Radiology Impressions Impressions - last 24 hours: Any impression(s) listed above is documentation that was entered by the reading physician into a diagnostic report(s) for Delano Ren. I have reviewed the report(s) and am incorporating any findings in the treatment plan of this patient where applicable. A&P - Nephrology Assessment/Plan (1) Acute kidney injury superimposed on CKD: Assessment/Problem Details: He has a WICHO on CKD due to the relative hypotension and postoperative blood lossanemia creatinine function has improved however started to drift up again with lower blood pressure and drop of hemoglobin. Patient back on Eliquis. (2) Aspiration pneumonia: Assessment/Problem Details: Recovered, he is done with antibiotics (3) Stage 4 chronic kidney disease: Assessment/Problem Details: He has a CKD due to the longstanding DM and HTN with baseline creatinine 2.6-3 mg/dL. (4) Chronic HFrEF (heart failure with reduced ejection fraction): Assessment/Problem Details: Patient appears to be well compensated. (5) Femoral neck fracture: Assessment/Problem Details: He is s/p ORIF on 12/23/2024 (6) Hypertensive chronic kidney disease with stage 1 through stage 4 chronic kidney disease, or unspecified chronic kidney disease: Assessment/Problem Details: His blood pressure is controlled. Plan * Renal function did improve with better blood pressure after cutting down multiple blood pressure medications including amlodipine and hydralazine. Metoprolol succinate was decreased to 25 mg daily as well. * Patient had 2 units of packed RBCs with a stable hemoglobin at 8 g/dL. Apixaban was held. No more need for blood transfusion at this point. * Stool for blood was positive. GI was consulted. Patient is known to have hemorrhoids on August 2024. No need to repeat colonoscopy. * Check renal function and CBC daily. Documented By: Winsome Goff MD 01/05/251415 Signed By: <Electronically signed by MD Winsome Goff> 01/05/25 1419 [facility] Work Phone: 1(526) 314-950903-22-2025 Progress note Author Winsome Goff [facility] Note Date/Time January 04, 2025 5:5 3pm [facility] [address] [place] [address] Nephrology Progress Note Signed Patient: Delano Ren MR#: [id number] : 1940 Acct:[id number] Age/Sex: 84 / M Adm Date: 5 Loc: 5T Room: [address] [place] [address] Type: ADM IN Attending Dr: Sotero Black MD Copies to: ~ Date of Service: 01/04/2025 Subjective Subjective Narrative: This is a 84 male with medical history of CKD IV, HTN, A-fib, HFrEF, DM, gout and HLD was initially admitted after mechanical fall for right hip fracture. Heunderwent surgery on December 23. His postoperative course was complicated by aspiration pneumonia and was started on IV antibiotic by the hospitalist. He also had acute on chronic anemia due to the possibly blood loss anemia and was transfused 2 unit of PRBC. He was also found to have WICHO on CKD in the setting of relative hypotension and blood loss anemia. His renal function improved withfluid resuscitation and blood transfusion. He was resumed on Lasix and had a good urine output. Patient moved to the inpatient rehab. Nephrology consultedfor WICHO on CKD care during his rehab stay. Interval history: Patient is up in the chair. Patient stated he feels much better. Blood pressure did improve up to 121/58 after holding hydralazine and decrease metoprolol to 25 mg daily. Amlodipine was stopped. Apixaban is on hold because of concern about incipient bleeding at hip surgery site. Hemoglobin did improve up to 8 g/dL from 7.7 yesterday with no more transfusion. Renal function started to improve with creatinine down to 2.84 mg/dL. Exam Physical Exam Vital Signs: Temp Pulse Resp BP Pulse Ox O2 Del Method O2 Flow Rate 36.6 C 74 18 121/58 L 96 Room Air 1 01/04/25 14:27 01/04/25 14:27 01/04/25 14:27 01/04/25 14:27 01/04/25 14:27 01/04/25 14:12/30/24 05:00 Narrative: Constitutional: Appears comfortable and not in distress HEENT: Significant pallor with no jaundice or cyanosis. Mucous membranes are moist. Cardiovascular: RRR, normal S1-S2, no gallop or rub, No JVD Respiratory: Good bilateral air entry no wheezing or crackles Gastrointestinal: Soft, non tender, positive bowel sounds Extremities: 1+ edema Skin: No rashes or bruises Musculoskeletal: s/p right hip hemiarthroplasty on 12/23/2024 Neurology: Awake, alert, oriented ?3, No focal motor or sensory deficits Psych: Normal mood and affect Objective Intake and Output I&O: Intake & Output 01/01/25 01/02/25 01/03/25 01/04/25 23:59 23:59 23:59 23:59 Intake Total 1360 / 1360 1240 / 1240 1030 / 1030 600 / 600 Output Total 950 / 950 950 / 950 1125 / 1125 Balance 1360 / 1360 290 / 290 80 / 80 -525 / -525 Weight 96.8 kg 96.3 kg 94.6 kg Meds and Allergies Meds: Active Medications Acetaminophen (Acetaminophen 500 Mg Tablet) 500 mg PO Q4H PRN PRN Reason: Pain Stop: 12/27/25 14:22 Acetaminophen (Acetaminophen 500 Mg Tablet) 1,000 mg PO Q8HR PRN PRN Reason: pain Stop: 12/27/25 14:34 Last Admin: 01/02/25 21:00 Dose: 1,000 mg Al Hydrox/Mg Hydrox/Simethicone (Mag Hydrox/Al Hydrox/Simeth 30 Ml Udc) 30 ml PO Q4H PRN PRN Reason: Indigestion Stop: 12/27/25 14:22 Albuterol (Albuterol Neb 2.5 Mg/3 Ml Vial.Neb) 2.5 mg INHALATION Q2H PRN PRN Reason: Shortness Of Breath Stop: 12/27/25 14:34 Allopurinol (Allopurinol 100 Mg Tablet) 100 mg PO BID FERN Stop: 12/30/25 20:59 Last Admin: 01/04/25 08:16 Dose: 100 mg Amiodarone HCl (Amiodarone 200 Mg Tablet) 200 mg PO DAILY FERN Stop: 12/28/25 08:59 Last Admin: 01/04/25 08:15 Dose: 200 mg Apixaban (Apixaban 2.5 Mg Tablet) 2.5 mg PO BID FERN Stop: 12/28/25 08:59 Last Admin: 12/31/24 08:30 Dose: 2.5 mg Ascorbic Acid (Ascorbic Acid 500 Mg Tablet) 500 mg PO DAILY REPLACED BY [facility] Stop: 12/28/25 08:59 Last Admin: 01/04/25 08:16 Dose: 500 mg Balsam Qian/[place] Oil (Balsam Qian/[place] Oil Oint 60 Gm Tube) 1 applic TOPICAL BID PRN PRN Reason: tape caraballo Stop: 01/01/26 12:33 Last Admin: 01/02/25 14:36 Dose: 1 applic Bisacodyl (Bisacodyl 10 Mg Supp.Rect) 10 mg [place] DAILY PRN PRN Reason: Constipation Stop: 12/27/25 14:22 Budesonide/Formoterol Fumarate (Budesonide/Formoterol 160-4.5 Mcg 120 Puff/10.2 Gm Hfa.Aer.Ad) 2 puff INHALATION BID FERN Stop: 12/28/25 08:59 Last Admin: 01/04/25 04:56 Dose: Not Given Calcium Carbonate (Calcium Carbonate/Vitamin D3 500 Mg/200 Unit Tablet) 1 tab PO TID.WITH.MEALS REPLACED BY [facility] Stop: 12/27/25 16:59 Last Admin: 01/04/25 17:10 Dose: 1 tab Diclofenac Sodium (Diclofenac Sodium 1% Gel 100 Gm Tube) 2 gm TOPICAL QID PRN PRN Reason: Muscle Pain Stop: 01/02/26 10:34 Last Admin: 01/03/25 08:06 Dose: 2 gm Docusate Sodium (Docusate 100 Mg Capsule) 100 mg PO BID PRN PRN Reason: Constipation Stop: 12/27/25 14:22 Docusate Sodium (Docusate Enema 283 Mg/5 Ml Enema) 283 mg [place] DAILY PRN PRN Reason: Constipation Stop: 12/27/25 14:22 Ezetimibe (Ezetimibe 10 Mg Tablet) 10 mg PO DAILY REPLACED BY [facility] Stop: 12/28/25 08:59 Last Admin: 01/04/25 08:15 Dose: 10 mg Ferrous Sulfate (Ferrous Sulfate 324 Mg Tablet.Dr) 324 mg PO DAILY FERN Stop: 01/04/26 08:59 Last Admin: 01/04/25 08:16 Dose: 324 mg Hydralazine HCl (Hydralazine 50 Mg Tablet) 50 mg PO BID FERN Stop: 01/01/26 20:59 Last Admin: 01/02/25 08:49 Dose: Not Given Ipratropium [place] (Ipratropium [place] 0.5 Mg/2.5 Ml Vial.Neb) 0.5 mg INHALATION QID.RESP REPLACED BY [facility] Stop: 12/27/25 19:59 Last Admin: 01/04/25 11:18 Dose: Not Given Isosorbide Dinitrate (Isosorbide Dinitrate 10 Mg Tablet) 10 mg PO TID REPLACED BY [facility] Stop: 12/27/25 21:59 Last Admin: 01/02/25 08:48 Dose: 10 mg Lactulose (Lactulose 20 Gm/30 Ml Udc) 30 gm PO DAILY PRN PRN Reason: Constipation Stop: 12/27/25 14:22 Melatonin (Melatonin 5 Mg Tablet) 5 mg PO QHS REPLACED BY [facility] Stop: 01/01/26 21:59 Last Admin: 01/03/25 21:24 Dose: 5 mg Metoprolol Succinate (Metoprolol Succinate 25 Mg Tab.Er.24h) 25 mg PO DAILY REPLACED BY [facility] Stop: 01/03/26 08:59 Last Admin: 01/04/25 08:16 Dose: 25 mg Oxycodone HCl (Oxycodone Ir 5 Mg Tablet) 5 mg PO Q4HR PRN PRN Reason: Pain Scale 4 - 7 Last Admin: 12/30/24 05:40 Dose: 5 mg Oxycodone HCl (Oxycodone Ir 5 Mg Tablet) 10 mg PO Q4HR PRN PRN Reason: Pain Scale 8 - 10 Last Admin: 01/01/25 14:10 Dose: 10 mg Polyethylene Glycol (Polyethylene Glycol 3350 17 Gm Powd.Pack) 17 gm PO DAILY REPLACED BY [facility] Stop: 12/28/25 08:59 Last Admin: 01/04/25 08:16 Dose: Not Given Sennosides (Sennosides 8.6 Mg Tablet) 17.2 mg PO DAILY@12 PRN PRN Reason: If no BM in 2 days Stop: 12/28/25 11:59 Sodium Chloride (Sodium Chloride 0.9 % 10 Ml Syringe) 0 ml IV-PUSH PRN PRN PRN Reason: Flush Stop: 12/27/25 14:22 Sodium Chloride (Sodium Chloride 0.9 % 10 Ml Syringe) 10 ml IV-PUSH Q8H REPLACED BY [facility] Stop: 12/28/25 05:59 Last Admin: 01/04/25 14:19 Dose: 10 ml Vitamin D (Cholecalciferol 125 Mcg (5,000 Units) Capsule) 125 mcg PO DAILY FERN Stop: 12/28/25 08:59 Last Admin: 01/04/25 08:15 Dose: 125 mcg Allergies simvastatin Allergy (Unknown, Verified 12/19/24 08:50) Unknown Reaction Jjybhdm-QRP-ZlP Reductase Inhibitor (Skkfbqy-Wla-Sya Reductase Inhibitor) Allergy (Unknown, Verified 12/19/24 08:50) Muscle Pain tramadol Allergy (Verified 12/19/24 08:50) Itching niacin ER Allergy (Uncoded 08/22/24 08:31) itching Results - Nephrology Labs 01/04/25 05:37 01/04/25 05:37 Labs: 01/04/25 05:37 BUN 76 H Creatinine 2.84 H Radiology Impressions Impressions - last 24 hours: Any impression(s) listed above is documentation that was entered by the reading physician into a diagnostic report(s) for Delano Ren. I have reviewed the report(s) and am incorporating any findings in the treatment plan of this patient where applicable. A&P - Nephrology Assessment/Plan (1) Acute kidney injury superimposed on CKD: Assessment/Problem Details: He has a WICHO on CKD due to the relative hypotension and postoperative blood lossanemia creatinine function has improved however started to drift up again with lower blood pressure and drop of hemoglobin. Patient back on Eliis. (2) Aspiration pneumonia: Assessment/Problem Details: Recovered, he is done with antibiotics (3) Stage 4 chronic kidney disease: Assessment/Problem Details: He has a CKD due to the longstanding DM and HTN with baseline creatinine 2.6-3 mg/dL. (4) Chronic HFrEF (heart failure with reduced ejection fraction): Assessment/Problem Details: Patient appears to be well compensated. (5) Femoral neck fracture: Assessment/Problem Details: He is s/p ORIF on 12/23/2024 (6) Hypertensive chronic kidney disease with stage 1 through stage 4 chronic kidney disease, or unspecified chronic kidney disease: Assessment/Problem Details: His blood pressure is controlled. Plan * Renal function did improve with better blood pressure after cutting down multiple blood pressure medications including amlodipine and hydralazine. Metoprolol succinate was decreased to 25 mg daily as well. * Patient had 2 units of packed RBCs with a stable hemoglobin and slowly improving up to 8 g/dL. Apixaban apixaban was held. No more need for blood transfusion at this point. * Stool for blood was positive. GI was consulted. Patient is known to have hemorrhoids on August 2024. No need to repeat colonoscopy. * Check renal function and CBC daily. Documented By: Winsome Goff MD 01/04/25 [id number] Signed By: <Electronically signed by MD Winsome Goff> 01/04/25 [address] [facility] Work Phone: 1(726) 795-427603-22-2025 Progress note Author Brenda Driscoll [facility] Note Date/Time January 03, 2025 11: 02pm [facility] [address] [place] [address] Physiatry(Rehab) Progress Note Signed Patient: Delano Ren MR#: [id number] : 1940 Acct:[id number] Age/Sex: 84 / M Adm Date: 5 Loc: Room: 7M0027-7 Type: ADM IN Attending Dr: Sotero Black MD Copies to: ~ Date of Service: 01/03/2025 Subjective Subjective Narrative: Mr. Ren is a 84 year old male with multiple complex medical comorbidities as below including nonischemic cardiomyopathy with reduced ejection fraction and ICD/defibrillator in place, anticoagulated with Eliquis, chronic renal failure, likely underlying COPD, and others presenting with right femoral neck fracture after a fall, status post hemiarthroplasty December 24. Postop course notable for acute on chronic renal failure and hypoxemic respiratory failure, multifactorial, completed treatment for aspiration pneumonia. Interval history: Patient was seen and evaluated in his room while up in the chair. He is alert, pleasant, oriented x 3. Not having much pain today, just mild soreness after completing physical therapy. Reports no SOB or chest pain, no palpitations. I reviewed his morning labs; H&H is marginally better 7.7/22.0. I am inclined giving the patient an additional unit of PRBCs given the underlying kidney disease and slow hemoglobin uptrend despite multiple PRBC units. I will also start him on iron supplementation. I did update patient's on the plan of care. She is concerned that his hemoglobin remains so low. She is also worried about a positive FOBT which was done yesterday. She is requesting a colonoscopy. I explained that most likely the hemoglobin fluctuations are not due to GI blood loss but rather from intraoperative blood loss and CKD. I also reviewed notes from patient's last encounter with gastroenterology. Per Dr. Rascon, recommendation is to continue routine colonoscopies every 2 years in a tertiary facility due to patient's numerous comorbidities. I did explain this to patient's . He can be referred to or [facility] gastroenterology in outpatient settings. Dayan still wants GI to see the patient while up on the rehab. Will place a consult today. Review of Systems Review of Systems All other systems reviewed & are negative unless noted below or in HPI Exam Physical Exam Vital Signs: Temp Pulse Resp BP Pulse Ox O2 Del Method O2 Flow Rate 98 F 75 18 118/60 95 Room Air 1 01/03/25 07:00 01/03/25 07:00 01/03/25 07:00 01/03/25 07:00 01/03/25 07:00 01/03/25 07:30 12/30/24 05:00 Narrative: General: Awake, alert, oriented x3 HENT: Normal to inspection, normocephalic, atraumatic. Mild pallor of the skin. Eyes: PERRL, normal conjunctiva and sclera Neck: Normal ROM, normal visual inspection. Trachea midline. Cardio: Regular heart rate and rhythm Respiratory: Clear to auscultation bilaterally. Normal respiratory effort. No respiratory distress. GI: Abdomen soft, nontender, nondistended, active bowel sounds x4 quadrants Neuro: CN II-XII intact. Strength 5/5, equal bilaterally Extremities: No edema, erythema, cyanosis Psych: Mood and affect appropriate. Normal speech. Objective Labs 01/03/25 05:14 01/03/25 05:14 Labs: Laboratory Results - last 24 hr 12/31/24 01/03/25 12:18 05:14 Corrected WBC 10.0 RBC 2.37 L Hgb 7.7 L Hct 22.0 L MCV 93.0 MCH 32.6 MCHC 35.0 RDW 14.9 H Plt Count 345 MPV 7.4 PHA Creatinine Clear 21.34 Sodium 135 L Potassium 4.3 Chloride 98 Carbon Dioxide 29.8 Anion Gap 11.5 BUN 91 H Creatinine 3.16 H D Est GFR (CKD-EPI) 18.892 Glucose 118 H Calcium 8.0 L Blood Type O Positive Antibody Screen Negative Crossmatch (AHG) See Detail Additional Results Results Comments: I reviewed clinical lab tests, radiology reports and obtained and summated medical records and have ordered follow up lab tests and imaging studies as needed for rehabilitation care. Medications and Allergies Allergies and Active Meds: Allergies simvastatin Allergy (Unknown, Verified 12/19/24 08:50) Unknown Reaction Nongwdu-KAR-UiB Reductase Inhibitor (Pvzffmc-Sid-Cfu Reductase Inhibitor) Allergy (Unknown, Verified 12/19/24 08:50) Muscle Pain tramadol Allergy (Verified 12/19/24 08:50) Itching niacin ER Allergy (Uncoded 08/22/24 08:31) itching Active Medications Generic Name Dose Route Start Last Admin Trade Name Freq PRN Reason Stop Dose Admin Acetaminophen 500 mg 12/27/24 14:23 Acetaminophen 500 Mg Tablet PO 12/27/25 14:22 Q4H PRN Pain Acetaminophen 1,000 mg 12/27/24 14:35 01/02/25 21:00 Acetaminophen 500 Mg Tablet PO 12/27/25 14:34 1,000 mg Q8HR PRN Administration pain Al Hydrox/Mg Hydrox/Simethicone 30 ml 12/27/24 14:23 Mag Hydrox/Al Hydrox/Simeth 30 Ml Udc PO 12/27/25 14:22 Q4H PRN Indigestion Albuterol 2.5 mg 12/27/24 14:35 Albuterol Neb 2.5 Mg/3 Ml Vial.Neb INHALATION 12/27/25 14:34 Q2H PRN Shortness Of Breath Allopurinol 100 mg 12/30/24 21:00 01/03/25 08:06 Allopurinol 100 Mg Tablet PO 12/30/25 20:59 100 mg BID FERN Administration Amiodarone HCl 200 mg 12/28/24 09:00 01/03/25 08:06 Amiodarone 200 Mg Tablet PO 12/28/25 08:59 200 mg DAILY FERN Administration Apixaban 2.5 mg 12/28/24 09:00 12/31/24 08:30 Apixaban 2.5 Mg Tablet PO 12/28/25 08:59 2.5 mg BID FERN Administration Ascorbic Acid 500 mg 12/28/24 09:00 01/03/25 08:06 Ascorbic Acid 500 Mg Tablet PO 12/28/25 08:59 500 mg DAILY FERN Administration Balsam Qian/[place] Oil 1 applic 01/01/25 12:34 01/02/25 14:36 Balsam [place] Oil Oint 60 Gm Tube TOPICAL 01/01/26 12:33 1 applic BID PRN Administration tape caraballo Bisacodyl 10 mg 12/27/24 14:23 Bisacodyl 10 Mg Supp.Rect [place] 12/27/25 14:22 DAILY PRN Constipation Budesonide/Formoterol Fumarate 2 puff 12/28/24 09:00 01/03/25 08:12 Budesonide/Formoterol 160-4.5 Mcg 120 Puff/10.2 Gm Hfa.Aer.Ad INHALATION 12/28/25 08:59 Not Given BID REPLACED BY [facility] Calcium Carbonate 1 tab 12/27/24 17:00 01/03/25 12:30 Calcium Carbonate/Vitamin D3 500 Mg/200 Unit Tablet PO 12/27/25 16:59 1 tab TID.WITH.MEALS FERN Administration Diclofenac Sodium 2 gm 01/02/25 10:35 01/03/25 08:06 Diclofenac Sodium 1% Gel 100 Gm Tube TOPICAL 01/02/26 10:34 2 gm QID PRN Administration Muscle Pain Docusate Sodium 100 mg 12/27/24 14:23 Docusate 100 Mg Capsule PO 12/27/25 14:22 BID PRN Constipation Docusate Sodium 283 mg 12/27/24 14:23 Docusate Enema 283 Mg/5 Ml Enema [place] 12/27/25 14:22 DAILY PRN Constipation Ezetimibe 10 mg 12/28/24 09:00 01/03/25 08:06 Ezetimibe 10 Mg Tablet PO 12/28/25 08:59 10 mg DAILY FERN Administration Ferrous Sulfate 324 mg 01/04/25 09:00 Ferrous Sulfate 324 Mg Tablet. PO 01/04/26 08:59 DAILY FERN Hydralazine HCl 50 mg 01/01/25 21:00 01/02/25 08:49 Hydralazine 50 Mg Tablet PO 01/01/26 20:59 Not Given BID REPLACED BY [facility] Sodium Chloride 100 mls @ 20 mls/hr 01/03/25 09:45 0.9% Sodium Chloride 100 Ml IV 01/04/25 09:44 PROTOCOL PRN BLOOD TRANSFUSION Ipratropium [place] 0.5 mg 12/27/24 20:00 01/03/25 12:41 Ipratropium [place] 0.5 Mg/2.5 Ml Vial.Neb INHALATION 12/27/25 19:59 Not Given QID.RESP FERN Isosorbide Dinitrate 10 mg 12/27/24 22:00 01/02/25 08:48 Isosorbide Dinitrate 10 Mg Tablet PO 12/27/25 21:59 10 mg TID FERN Administration Lactulose 30 gm 12/27/24 14:23 Lactulose 20 Gm/30 Ml Udc PO 12/27/25 14:22 DAILY PRN Constipation Melatonin 5 mg 01/01/25 22:00 01/02/25 21:01 Melatonin 5 Mg Tablet PO 01/01/26 21:59 5 mg QHS FERN Administration Metoprolol Succinate 25 mg 01/03/25 09:00 01/03/25 08:06 Metoprolol Succinate 25 Mg Tab.Er.24h PO 01/03/26 08:59 25 mg DAILY FERN Administration Oxycodone HCl 5 mg 12/27/24 14:35 12/30/24 05:40 Oxycodone Ir 5 Mg Tablet PO 5 mg Q4HR PRN Administration Pain Scale 4 - 7 Oxycodone HCl 10 mg 12/27/24 14:35 01/01/25 14:10 Oxycodone Ir 5 Mg Tablet PO 10 mg Q4HR PRN Administration Pain Scale 8 - 10 Polyethylene Glycol 17 gm 12/28/24 09:00 01/03/25 08:06 Polyethylene Glycol 3350 17 Gm Powd.Pack PO 12/28/25 08:59 17 gm DAILY FERN Administration Sennosides 17.2 mg 12/28/24 12:00 Sennosides 8.6 Mg Tablet PO 12/28/25 11:59 DAILY@12 PRN If no BM in 2 days Sodium Chloride 0 ml 12/27/24 14:23 Sodium Chloride 0.9 % 10 Ml Syringe IV-PUSH 12/27/25 14:22 PRN PRN Flush Sodium Chloride 10 ml 12/28/24 06:00 01/03/25 13:09 Sodium Chloride 0.9 % 10 Ml Syringe IV-PUSH 12/28/25 05:59 10 ml Q8H FERN Administration Vitamin D 125 mcg 12/28/24 09:00 01/03/25 08:06 Cholecalciferol 125 Mcg (5,000 Units) Capsule PO 12/28/25 08:59 125 mcg DAILY FERN Administration Assessment/Plan Assessment/Plan (1) Femoral neck fracture: Plan: PT to improve pt's strength, endurance, bed mobility, transfers (sit-stand), standing balance, gait quality on level surfaces and stairs, coordination and functional ADL skills. Will also work to improve pt's safety awareness during transfers and ambulation. OT for basic ADL re-training (bathing, dressing, toileting, continence, grooming, feeding, transferring), to increase activity tolerance and functional mobility and to evaluate for adaptive and assistive devices. Will work to improve pt's endurance and educate pt on fall prevention and energy conservationtechniques-pacing strategies and proper breathing techniques during functional tasks. Patient education Pressure ulcer prophylaxis; encourage mobilization, frequent postural changes, pressure-relief techniques DVT prophylaxis Encourage deep breathing exercise incentive spirometry. Monitor bladder. Toileting schedule. Continue current bladder management, with scans as needed and CIC if needed. Start bowel care program every day to obtain continence, prevent ileus. Maintain fall precautions Gait and balance retraining Provision of the necessary gait aids and functional adaptive equipment to enhance the patient's a functional protestant Encourage deep breathing exercises and incentive spirometry RD evaluation Ensure adequate nutrition and hydration Discharge planning. (2) Acute on chronic anemia: (3) Acute kidney injury superimposed on CKD: (4) Mucopurulent chronic bronchitis: (5) Malignant neoplasm of right colon: (6) Iron deficiency anemia: (7) Impaired mobility and activities of daily living: (8) Chronic HFrEF (heart failure with reduced ejection fraction): (9) Type 2 diabetes mellitus with hyperglycemia: Qualifiers: Diabetes mellitus middle or intermediate school principal insulin use: without middle or intermediate school principal use Qualified Code(s): E11.65 - Type 2 diabetes mellitus with hyperglycemia (10) Stage 4 chronic kidney disease: (11) A-fib: (12) Coronary artery disease: (13) Aspiration pneumonia: Plan Mr. Ren is a 84 year old male with multiple complex medical comorbidities as below including nonischemic cardiomyopathy with reduced ejection fraction and ICD/defibrillator in place, anticoagulated with Eliquis, chronic renal failure, likely underlying COPD, and others presenting with right femoral neck fracture after a fall, status post hemiarthroplasty December 24. ?H&H 7.7/22.0 s/p 1 unit of PRBCs. Will give an additional unit today, recheck CBC counts tomorrow. -GI consult for positive FOBT per 's request -Renal function trending down, nephrology is following -Working with therapy. At this point he is ambulatory 41+40+38 feet with a walker and CGA plus wheelchair follow. CGA with transfers. Hospitalist to assist with management of comorbid medical conditions Pain control: Limit opioids. Wean as tolerated. Bowel and bladder:. Maintain bowel regimen. Monitor urine output. Skin: Maintain operative site, turn in position for offloading and pressure ulcer prevention Sleep: Optimize sleep-wake cycle DVT prophylaxis: Resume home Eliquis. Functional status: See therapy notes. With aspiration, have speech therapy screened patient for dysphagia Discharge planning:. Home in 2 weeks. I spent 35 minutes for services, including qunv-rv-[id number] encounter with the patient, discussion of the case, plan of care, and exam; and zbngvir-uh-uhih activities, such as reviewing pertinent furniture sales consultant documentation, recent therapynotes, laboratory and radiology studies, and discussion of case with care team including physician, nursing, case manager specialist, and therapists. More than 50 % of time was spent on patient/family counseling or coordination ofcare. <Statement entered by Clyde Bedolla MD - 01/03/25 23:02> This documentation has been reviewed and approved. Documented By: Brenda Driscoll APRN 01/03/25 1 000 Signed By: <Electronically signed by EDWARD Driscoll> 01/03/25 1406 <Electronically signed by Clyde Bedolla MD> 01/03/25 [address] [facility] Work Phone: 1(637) 304-138803-21-2025 Consult note Author Son Nicole [facility] Note Date/Time January 03, 2025 12: 05pm [facility] [address] [place], [place] [id number] Gastroenterology Consult Note Signed Patient: Delano Ren MR#: [id number] : 1940 Acct:[id number] Age/Sex: 84 / M Adm Date: 5 Loc: Room: 6Y1446-5 Type: ADM IN Attending Dr: Sotero Black MD Copies to: Yas Linda,MD Sotero Lomax MD~ HPI Data of Consult Date of Consultation: 01/03/25 Requesting Physician: Sotero Black MD Consult Narrative History of present illness: Mr. Ren is a 84 year old male nonischemic cardiomyopathy w/ RENE 35% s/p ICD/defibirllator, afib on Eliquis, CKD who presented with a right femoral neck fracture after a fall s/p hemiarthroplasty on 12/24/2024 who gastroenterology is consulted for positive FOBT in the setting of history of colon cancer Patient denied melena, hematochezia, abdominal pain or change in bowel habits cc:: CC: Sotero Black MD Review of Systems Review of Systems All other systems reviewed & are negative unless noted below or in HPI [facility] Medical History Former smoker quit at age ~44 COPD (chronic obstructive pulmonary disease) cpap use Screening PSA (prostate specific antigen) PSA: 0.91 - 07/2024 Chronic bronchitis, simple Chronic HFrEF (heart failure with reduced ejection fraction) Echo: LVEF 25%, RV reduced function, RVSP 61, SANJAY, mod MR - 02/2023 Type 2 diabetes mellitus with hyperglycemia Thyrotoxicosis Stage 4 chronic kidney disease Pulmonary hypertension Psoas abscess Primary hypertension Paroxysmal atrial fibrillation Ablation - 10/2019 Cardioversion - 10/2024 Obstructive sleep apnea Nonischemic dilated cardiomyopathy LHC: nonobstructive coronary disease - 2016 s/p ICD - 10/2019, BiV ICD - 05/2023 Lumbar spondylosis 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 Hypokalemia Hyperuricemia Hypertensive chronic kidney disease with stage 1 through stage 4 chronic kidney disease, or unspecified chronic kidney disease Hyperlipidemia type II Complete heart block Chronic venous insufficiency Hyperthyroidism Hyperlipidemia Chicken pox Arthritis Anemia Wears hearing aid in left ear Colon cancer Hemicolectomy 08/2021, Surveillance colonoscopy 07/2022 (repeat 2 years) Hypercholesteremia Coronary artery disease A-fib hx ablation Surgical History Hx of tonsillectomy Hx of cardiac catheterization (~2015) Biventricular ICD (implantable cardioverter-defibrillator) in place (~05/2023) H/O cardiac radiofrequency ablation H/O right hemicolectomy (~08/2021) H/O colonoscopy (~08/2024) 07/2022, 08/2024 w/ plan to repeat 2 years History of right heart catheterization (RHC) History of left knee replacement Pacemaker Family History Father CHF (congestive heart failure) Heart disease Mother Diabetes mellitus, type 2 Heart disease Brother Cancer Son Blackfan Glo anemia Social History Smoking Status: Former smoker Tobacco Type: cigarettes Substance Use Type: None Meds Medications and Allergies Allergies simvastatin Allergy (Unknown, Verified 12/19/24 08:50) Unknown Reaction Gurubjc-PMW-KlJ Reductase Inhibitor (Avjuhkp-Huu-Ccj Reductase Inhibitor) Allergy (Unknown, Verified 12/19/24 08:50) Muscle Pain tramadol Allergy (Verified 12/19/24 08:50) Itching niacin ER Allergy (Uncoded 08/22/24 08:31) itching Home Medications hydralazine 100 mg tablet 100 mg PO TID 30 days #90 tabs 06/09/21 [Rx Confirmed 12/27/24] niacin 500 mg tablet 500 mg PO DAILY 30 days #30 tabs 06/09/21 [Rx Confirmed 12/27/24] amlodipine 10 mg tablet 10 mg PO DAILY 07/21/22 [History Confirmed 12/27/24] isosorbide dinitrate 10 mg tablet 10 mg PO TID 07/21/22 [History Confirmed 12/27/24] apixaban 2.5 mg tablet (Eliquis) 2.5 mg PO BID 03/03/23 [History Confirmed 12/27/24] blood sugar diagnostic (Contour Next Test Strips) 12/15/23 [History Confirmed 12/19/24] cholecalciferol (vitamin D3) 125 mcg (5,000 unit) tablet 5,000 unit PO DAILY 12/15/23 [History Confirmed 12/27/24] metoprolol succinate 100 mg tablet,extended release 24 hr 100 mg PO DAILY 12/15/23 [History Confirmed 12/27/24] furosemide 80 mg tablet 80 mg PO DAILY 30 days #30 tabs 12/18/23 [Rx Confirmed 12/27/24] fluticasone fur. 200 mcg-umeclid 62.5 mcg-vilant 25 mcg inhalat.powder (Trelegy Ellipta) 1 inh inhalation DAILY 90 days #90 ea 02/15/24 [Rx Confirmed 12/27/24] ezetimibe 10 mg tablet 10 mg PO DAILY 03/01/24 [History Confirmed 12/27/24] allopurinol 100 mg tablet 100 mg PO DAILY 90 days #90 tabs 06/05/24 [Rx Confirmed 12/27/24] acetaminophen 500 mg tablet (Acetaminophen Extra Strength) 1,000 mg PO Q8HR PRN pain 08/12/24 [History Confirmed 12/27/24] losartan 25 mg tablet 25 mg PO DAILY 08/12/24 [History Confirmed 12/21/24] potassium chloride 10 mEq tablet,extended release(part/cryst) See Rx Instructions .Route .COMPLEX #90 tabs 10/15/24 [Rx Confirmed 12/27/24] amiodarone 200 mg tablet 200 mg PO DAILY 11/08/24 [History Confirmed 12/27/24] albuterol sulfate 2.5 mg/3 mL (0.083 %) solution for nebulization 2.5 mg (3 mL) inhalation Q2H PRN Shortness Of Breath #90 mL 12/27/24 [Rx Confirmed 12/27/24] amoxicillin 500 mg-potassium clavulanate 125 mg tablet 1 tab PO BID 2 days #4 tabs 12/27/24 [Rx Confirmed 12/27/24] ascorbic acid (vitamin C) 500 mg tablet (Vitamin C) 500 mg PO DAILY #30 tabs 12/27/24 [Rx Confirmed 12/27/24] azithromycin 250 mg tablet 500 mg (2 x 250 mg) PO Q24H 2 days #4 tabs 12/27/24 [Rx Confirmed 12/27/24] calcium 500 mg (as carbonate)-vitamin D3 5 mcg (200 unit) tablet (Oyster Shell Calcium-Vitamin D3) 1 tab PO TID.WITH.MEALS #90 tabs 12/27/24 [Rx Confirmed 12/27/24] docusate sodium 100 mg capsule 100 mg PO BID #60 caps 12/27/24 [Rx Confirmed 12/27/24] multivitamin with folic acid 400 mcg tablet (Thera) 1 tab PO DAILY #30 tabs 12/27/24 [Rx Confirmed 12/27/24] oxycodone 5 mg tablet 5 mg PO Q4HR PRN Pain Scale 1 - 5 30 days #30 tabs 12/27/24 [Rx Confirmed 12/27/24] oxycodone 5 mg tablet 10 mg (2 x 5 mg) PO Q4HR PRN Pain Scale 6 - 10 30 days #30tabs 12/27/24 [Rx Confirmed 12/27/24] polyethylene glycol 3350 17 gram oral powder packet (HealthyLax) 17 g PO DAILY #30 ea 12/27/24 [Rx Confirmed 12/27/24] Exam Physical Exam Vital Signs: Temp Pulse Resp BP Pulse Ox O2 Del Method O2 Flow Rate 98 F 75 18 118/60 95 Room Air 1 01/03/25 07:00 01/03/25 07:00 01/03/25 07:00 01/03/25 07:00 01/03/25 07:00 01/03/25 07:30 12/30/24 05:00 Narrative: General appearance: NAD Skin: No jaundice Head: NC/AT Eyes: Anicteric Neck: Supple Lungs: Normal respiratory effort, no use of accessory muscles Abdomen: Nondistended Neuro: Ox3. Results - Gastroenterology Labs Labs: Laboratory Results - last 24 hr 12/31/24 01/03/25 12:18 05:14 Corrected WBC 10.0 RBC 2.37 L Hgb 7.7 L Hct 22.0 L MCV 93.0 MCH 32.6 MCHC 35.0 RDW 14.9 H Plt Count 345 MPV 7.4 PHA Creatinine Clear 21.34 Sodium 135 L Potassium 4.3 Chloride 98 Carbon Dioxide 29.8 Anion Gap 11.5 BUN 91 H Creatinine 3.16 H D Est GFR (CKD-EPI) 18.892 Glucose 118 H Calcium 8.0 L Blood Type O Positive Antibody Screen Negative Crossmatch (AHG) See Detail A&P - Gastroenterology Assessment/Plan (1) Malignant neoplasm of right colon: (2) Positive fecal occult blood test: Plan Mr. Ren is a 84 year old male nonischemic cardiomyopathy w/ RENE 35% s/p ICD/defibirllator, severe pulmonary hypertension, afib on Eliquis, CKD who presented with a right femoral neck fracture after a fall s/p hemiarthroplasty on 12/24/2024 who gastroenterology is consulted for positive FOBT in the setting of history of colon cancer No overt bleeding or GI complaints. Surveillance colonoscopy was already done on 08/22/2024 and showed diminutive colonic polyps and internal hemorrhoids. Etiology of positive FOBT is likely related to hemorrhoids. No need to repeat colonoscopy Documented By: Son Nicole MD 01/03/25 1104 Signed By: <Electronically signed by Son Nicole MD> 01/03/25 [address] [facility] Work Phone: 1(889) 794-397103-20-2025 Progress note Author Winsome Goff [facility] Note Date/Time January 02, 2025 2:3 2pm [facility] [address] [place] [address] Nephrology Progress Note Signed Patient: Delano Ren MR#: [id number] : 1940 Acct:[id number] Age/Sex: 84 / M Adm Date: 5 Loc: Room: [address] [place] [address] Type: ADM IN Attending Dr: Sotero Black MD Copies to: ~ Date of Service: 01/02/2025 Subjective Subjective Narrative: This is a 84 male with medical history of CKD IV, HTN, A-fib, HFrEF, DM, gout and HLD was initially admitted after mechanical fall for right hip fracture. Heunderwent surgery on December 23. His postoperative course was complicated by aspiration pneumonia and was started on IV antibiotic by the hospitalist. He also had acute on chronic anemia due to the possibly blood loss anemia and was transfused 2 unit of PRBC. He was also found to have WICHO on CKD in the setting of relative hypotension and blood loss anemia. His renal function improved withfluid resuscitation and blood transfusion. He was resumed on Lasix and had a good urine output. Patient moved to the inpatient rehab. Nephrology consultedfor WICHO on CKD care during his rehab stay. Interval history: Patient is up in the chair. Clinically he is doing better. Unfortunately, hemoglobin continued to drift down to 7.5 g/dL today with drop ofthe blood pressure in the 80s systolic. Creatinine is up to 3.6 mg/dL as well with lower blood pressure. He had 1 unit of packed RBCs on 12/28 with improvement of hemoglobin up to 8.3. Patient has no obvious active bleeding and most likely has bruising at hip surgery site. Exam Physical Exam Vital Signs: Temp Pulse Resp BP Pulse Ox O2 Del Method O2 Flow Rate 36.8 C 80 18 94/50 L 92 L Room Air 1 01/02/25 04:43 01/02/25 08:51 01/02/25 04:43 01/02/25 10:35 01/02/25 08:51 01/02/25 08:51 12/30/24 05:00 Narrative: Constitutional: Appears comfortable and not in distress HEENT: Significant pallor with no jaundice or cyanosis. Mucous membranes are moist. Cardiovascular: RRR, normal S1-S2, no gallop or rub, No JVD Respiratory: Good bilateral air entry no wheezing or crackles Gastrointestinal: Soft, non tender, positive bowel sounds Extremities: 1+ edema Skin: No rashes or bruises Musculoskeletal: s/p right hip hemiarthroplasty on 12/23/2024 Neurology: Awake, alert, oriented ?3, No focal motor or sensory deficits Psych: Normal mood and affect Objective Intake and Output I&O: Intake & Output 12/30/24 12/31/24 01/01/25 01/02/25 23:59 23:59 23:59 23:59 Intake Total 800 / 800 1005 / 1005 1360 / 1360 880 / 880 Output Total 600 / 600 775 / 775 Balance 200 / 200 230 / 230 1360 / 1360 880 / 880 Weight 96.7 kg 95.6 kg 96.8 kg Meds and Allergies Meds: Active Medications Acetaminophen (Acetaminophen 500 Mg Tablet) 500 mg PO Q4H PRN PRN Reason: Pain Stop: 12/27/25 14:22 Acetaminophen (Acetaminophen 500 Mg Tablet) 1,000 mg PO Q8HR PRN PRN Reason: pain Stop: 12/27/25 14:34 Last Admin: 01/02/25 09:55 Dose: 1,000 mg Al Hydrox/Mg Hydrox/Simethicone (Mag Hydrox/Al Hydrox/Simeth 30 Ml Udc) 30 ml PO Q4H PRN PRN Reason: Indigestion Stop: 12/27/25 14:22 Albuterol (Albuterol Neb 2.5 Mg/3 Ml Vial.Neb) 2.5 mg INHALATION Q2H PRN PRN Reason: Shortness Of Breath Stop: 12/27/25 14:34 Allopurinol (Allopurinol 100 Mg Tablet) 100 mg PO BID REPLACED BY [facility] Stop: 12/30/25 20:59 Last Admin: 01/02/25 08:48 Dose: 100 mg Amiodarone HCl (Amiodarone 200 Mg Tablet) 200 mg PO DAILY FERN Stop: 12/28/25 08:59 Last Admin: 01/02/25 08:48 Dose: 200 mg Apixaban (Apixaban 2.5 Mg Tablet) 2.5 mg PO BID FERN Stop: 12/28/25 08:59 Last Admin: 12/31/24 08:30 Dose: 2.5 mg Ascorbic Acid (Ascorbic Acid 500 Mg Tablet) 500 mg PO DAILY REPLACED BY [facility] Stop: 12/28/25 08:59 Last Admin: 01/02/25 08:48 Dose: 500 mg Balsam [place] Oil (Balsam Qian/[place] Oil Oint 60 Gm Tube) 1 applic TOPICAL BID PRN PRN Reason: tape caraballo Stop: 01/01/26 12:33 Bisacodyl (Bisacodyl 10 Mg Supp.Rect) 10 mg [place] DAILY PRN PRN Reason: Constipation Stop: 12/27/25 14:22 Budesonide/Formoterol Fumarate (Budesonide/Formoterol 160-4.5 Mcg 120 Puff/10.2 Gm Hfa.Aer.Ad) 2 puff INHALATION BID REPLACED BY [facility] Stop: 12/28/25 08:59 Last Admin: 01/02/25 05:15 Dose: Not Given Calcium Carbonate (Calcium Carbonate/Vitamin D3 500 Mg/200 Unit Tablet) 1 tab PO TID.WITH.MEALS REPLACED BY [facility] Stop: 12/27/25 16:59 Last Admin: 01/02/25 12:38 Dose: 1 tab Diclofenac Sodium (Diclofenac Sodium 1% Gel 100 Gm Tube) 2 gm TOPICAL QID PRN PRN Reason: Muscle Pain Stop: 01/02/26 10:34 Docusate Sodium (Docusate 100 Mg Capsule) 100 mg PO BID PRN PRN Reason: Constipation Stop: 12/27/25 14:22 Docusate Sodium (Docusate Enema 283 Mg/5 Ml Enema) 283 mg [place] DAILY PRN PRN Reason: Constipation Stop: 12/27/25 14:22 Ezetimibe (Ezetimibe 10 Mg Tablet) 10 mg PO DAILY REPLACED BY [facility] Stop: 12/28/25 08:59 Last Admin: 01/02/25 08:48 Dose: 10 mg Hydralazine HCl (Hydralazine 50 Mg Tablet) 50 mg PO BID REPLACED BY [facility] Stop: 01/01/26 20:59 Last Admin: 01/02/25 08:49 Dose: Not Given Sodium Chloride (0.9% Sodium Chloride 100 Ml) 100 mls @ 20 mls/hr IV PROTOCOL PRN PRN Reason: BLOOD TRANSFUSION Stop: 01/03/25 09:01 Ipratropium [place] (Ipratropium [place] 0.5 Mg/2.5 Ml Vial.Neb) 0.5 mg INHALATION QID.RESP REPLACED BY [facility] Stop: 12/27/25 19:59 Last Admin: 01/02/25 14:11 Dose: Not Given Isosorbide Dinitrate (Isosorbide Dinitrate 10 Mg Tablet) 10 mg PO TID REPLACED BY [facility] Stop: 12/27/25 21:59 Last Admin: 01/02/25 08:48 Dose: 10 mg Lactulose (Lactulose 20 Gm/30 Ml Udc) 30 gm PO DAILY PRN PRN Reason: Constipation Stop: 12/27/25 14:22 Melatonin (Melatonin 5 Mg Tablet) 5 mg PO QHS REPLACED BY [facility] Stop: 01/01/26 21:59 Last Admin: 01/01/25 21:17 Dose: 5 mg Metoprolol Succinate (Metoprolol Succinate 25 Mg Tab.Er.24h) 25 mg PO DAILY REPLACED BY [facility] Stop: 01/03/26 08:59 Oxycodone HCl (Oxycodone Ir 5 Mg Tablet) 5 mg PO Q4HR PRN PRN Reason: Pain Scale 4 - 7 Last Admin: 12/30/24 05:40 Dose: 5 mg Oxycodone HCl (Oxycodone Ir 5 Mg Tablet) 10 mg PO Q4HR PRN PRN Reason: Pain Scale 8 - 10 Last Admin: 01/01/25 14:10 Dose: 10 mg Polyethylene Glycol (Polyethylene Glycol 3350 17 Gm Powd.Pack) 17 gm PO DAILY REPLACED BY [facility] Stop: 12/28/25 08:59 Last Admin: 01/02/25 08:48 Dose: Not Given Sennosides (Sennosides 8.6 Mg Tablet) 17.2 mg PO DAILY@12 PRN PRN Reason: If no BM in 2 days Stop: 12/28/25 11:59 Sodium Chloride (Sodium Chloride 0.9 % 10 Ml Syringe) 0 ml IV-PUSH PRN PRN PRN Reason: Flush Stop: 12/27/25 14:22 Sodium Chloride (Sodium Chloride 0.9 % 10 Ml Syringe) 10 ml IV-PUSH Q8H FERN Stop: 12/28/25 05:59 Last Admin: 01/02/25 05:01 Dose: 10 ml Vitamin D (Cholecalciferol 125 Mcg (5,000 Units) Capsule) 125 mcg PO DAILY FERN Stop: 12/28/25 08:59 Last Admin: 01/02/25 08:48 Dose: 125 mcg Allergies simvastatin Allergy (Unknown, Verified 12/19/24 08:50) Unknown Reaction Psiodvp-LFA-SaM Reductase Inhibitor (Rktjbdx-Mgz-Iry Reductase Inhibitor) Allergy (Unknown, Verified 12/19/24 08:50) Muscle Pain tramadol Allergy (Verified 12/19/24 08:50) Itching niacin ER Allergy (Uncoded 08/22/24 08:31) itching Results - Nephrology Labs 01/02/25 04:47 01/02/25 04:48 Labs: 01/02/25 04:48 BUN 90 H Creatinine 3.67 H Phosphorus 4.2 Albumin 2.8 L Radiology Impressions Impressions - last 24 hours: Any impression(s) listed above is documentation that was entered by the reading physician into a diagnostic report(s) for Delano Ren. I have reviewed the report(s) and am incorporating any findings in the treatment plan of this patient where applicable. A&P - Nephrology Assessment/Plan (1) Acute kidney injury superimposed on CKD: Assessment/Problem Details: He has a WICHO on CKD due to the relative hypotension and postoperative blood lossanemia creatinine function has improved however started to drift up again with lower blood pressure and drop of hemoglobin. Patient back on Eliquis. (2) Aspiration pneumonia: Assessment/Problem Details: Recovered, he is done with antibiotics (3) Stage 4 chronic kidney disease: Assessment/Problem Details: He has a CKD due to the longstanding DM and HTN with baseline creatinine 2.6-3 mg/dL. (4) Chronic HFrEF (heart failure with reduced ejection fraction): Assessment/Problem Details: Patient appears to be well compensated. (5) Femoral neck fracture: Assessment/Problem Details: He is s/p ORIF on 12/23/2024 (6) Hypertensive chronic kidney disease with stage 1 through stage 4 chronic kidney disease, or unspecified chronic kidney disease: Assessment/Problem Details: His blood pressure is controlled. Plan * Renal function is worsening with lower blood pressure and normal hemoglobin with possible continuous bleeding most likely intra-articular at hip surgery site since no evidence of active bleeding. Baseline creatinine variable between 2.5 to 3 mg/dL, patient has CKD stage IV and he follow-up with Dr. Syed in [place]. * Will transfuse additional 1 unit of packed RBCs * Will decrease metoprolol to succinate to 25 mg daily and hold hydralazine as blood pressure is low. Amlodipine was stopped few days ago. * Apixaban was held as well. Patient will need Kcentra andexanet daisha to reverse apixaban action if hemoglobin continues to drop. * Check renal function and CBC daily. Documented By: Winsome Goff MD 01/02/25 1419 Signed By: <Electronically signed by MD Winsome Goff> 01/02/25 1432 [facility] Work Phone: [phone]) 538-745603-20-2025 Progress note Author Sotero Black [facility] Note Date/Time January 02, 2025 10: 04am [facility] [address] [place] [address] Physiatry(Rehab) Progress Note Signed Patient: Delano Ren MR#: [id number] : 1940 Acct:[id number] Age/Sex: 84 / M Adm Date: 5 Loc: Room: 2K2253-6 Type: ADM IN Attending Dr: Sotero Black MD Copies to: ~ Date of Service: 01/02/2025 Subjective Subjective Narrative: Mr. Ren is a 84 year old male with multiple complex medical comorbidities as below including nonischemic cardiomyopathy with reduced ejection fraction and ICD/defibrillator in place, anticoagulated with Eliquis, chronic renal failure, likely underlying COPD, and others presenting with right femoral neck fracture after a fall, status post hemiarthroplasty December 24. Postop course notable for acute on chronic renal failure and hypoxemic respiratory failure, multifactorial, completed treatment for aspiration pneumonia. Interval history: Status post transfusion 1 unit PRBCs on Monday. His hemoglobin this morning 7.5. Defer to nephrology regarding management of that, overall he is stable with no signs of acute bleeding. He feels better from a pain standpoint is improving with therapy. Review of Systems Review of Systems All other systems reviewed & are negative unless noted below or in HPI Exam Physical Exam Vital Signs: Temp Pulse Resp BP Pulse Ox O2 Del Method O2 Flow Rate 98.3 F 68 20 115/53 L 93 L Room Air 1 01/01/25 14:14 01/01/25 14:14 01/01/25 14:14 01/01/25 14:14 01/01/25 14:14 01/01/25 14:14 12/30/24 05:00 Narrative: Pleasant No acute distress Nonlabored breathing Awake and alert. Oriented x 3. Right lower extremity exam limited by pain, fair strength throughout 1+ right lower extremity edema Objective Labs 01/02/25 04:47 01/02/25 04:48 Labs: Laboratory Results - last 24 hr 12/31/24 01/01/25 12:18 05:04 Hgb 8.3 L Hct 23.8 L Blood Type O Positive Antibody Screen Negative Crossmatch (AHG) See Detail Medications and Allergies Allergies and Active Meds: Allergies simvastatin Allergy (Unknown, Verified 12/19/24 08:50) Unknown Reaction Nhpklcv-IYZ-QyD Reductase Inhibitor (Gncdztl-Zxh-Kuz Reductase Inhibitor) Allergy (Unknown, Verified 12/19/24 08:50) Muscle Pain tramadol Allergy (Verified 12/19/24 08:50) Itching niacin ER Allergy (Uncoded 08/22/24 08:31) itching Active Medications Generic Name Dose Route Start Last Admin Trade Name Freq PRN Reason Stop Dose Admin Acetaminophen 500 mg 12/27/24 14:23 Acetaminophen 500 Mg Tablet PO 12/27/25 14:22 Q4H PRN Pain Acetaminophen 1,000 mg 12/27/24 14:35 01/01/25 03:46 Acetaminophen 500 Mg Tablet PO 12/27/25 14:34 1,000 mg Q8HR PRN Administration pain Al Hydrox/Mg Hydrox/Simethicone 30 ml 12/27/24 14:23 Mag Hydrox/Al Hydrox/Simeth 30 Ml Udc PO 12/27/25 14:22 Q4H PRN Indigestion Albuterol 2.5 mg 12/27/24 14:35 Albuterol Neb 2.5 Mg/3 Ml Vial.Neb INHALATION 12/27/25 14:34 Q2H PRN Shortness Of Breath Allopurinol 100 mg 12/30/24 21:00 01/01/25 09:03 Allopurinol 100 Mg Tablet PO 12/30/25 20:59 100 mg BID FERN Administration Amiodarone HCl 200 mg 12/28/24 09:00 01/01/25 09:03 Amiodarone 200 Mg Tablet PO 12/28/25 08:59 200 mg DAILY FERN Administration Apixaban 2.5 mg 12/28/24 09:00 12/31/24 08:30 Apixaban 2.5 Mg Tablet PO 12/28/25 08:59 2.5 mg BID FERN Administration Ascorbic Acid 500 mg 12/28/24 09:00 01/01/25 09:03 Ascorbic Acid 500 Mg Tablet PO 12/28/25 08:59 500 mg DAILY FERN Administration Balsam [place] Oil 1 applic 01/01/25 12:34 Balsam [place] Oil Oint 60 Gm Tube TOPICAL 01/01/26 12:33 BID PRN tape caraballo Bisacodyl 10 mg 12/27/24 14:23 Bisacodyl 10 Mg Supp.Rect [place] 12/27/25 14:22 DAILY PRN Constipation Budesonide/Formoterol Fumarate 2 puff 12/28/24 09:00 01/01/25 11:59 Budesonide/Formoterol 160-4.5 Mcg 120 Puff/10.2 Gm Hfa.Aer.Ad INHALATION 12/28/25 08:59 Not Given BID FERN Calcium Carbonate 1 tab 12/27/24 17:00 01/01/25 12:30 Calcium Carbonate/Vitamin D3 500 Mg/200 Unit Tablet PO 12/27/25 16:59 1 tab TID.WITH.MEALS FERN Administration Docusate Sodium 100 mg 12/27/24 14:23 Docusate 100 Mg Capsule PO 12/27/25 14:22 BID PRN Constipation Docusate Sodium 283 mg 12/27/24 14:23 Docusate Enema 283 Mg/5 Ml Enema [place] 12/27/25 14:22 DAILY PRN Constipation Ezetimibe 10 mg 12/28/24 09:00 01/01/25 09:03 Ezetimibe 10 Mg Tablet PO 12/28/25 08:59 10 mg DAILY FERN Administration Hydralazine HCl 50 mg 01/01/25 21:00 Hydralazine 50 Mg Tablet PO 01/01/26 20:59 BID FERN Ipratropium [place] 0.5 mg 12/27/24 20:00 01/01/25 12:00 Ipratropium [place] 0.5 Mg/2.5 Ml Vial.Neb INHALATION 12/27/25 19:59 Not Given QID.RESP FERN Isosorbide Dinitrate 10 mg 12/27/24 22:00 01/01/25 14:10 Isosorbide Dinitrate 10 Mg Tablet PO 12/27/25 21:59 10 mg TID FERN Administration Lactulose 30 gm 12/27/24 14:23 Lactulose 20 Gm/30 Ml Udc PO 12/27/25 14:22 DAILY PRN Constipation Metoprolol Succinate 100 mg 12/28/24 09:00 01/01/25 09:03 Metoprolol Succinate 100 Mg Tab.Er.24h PO 12/28/25 08:59 100 mg DAILY FERN Administration Oxycodone HCl 5 mg 12/27/24 14:35 12/30/24 05:40 Oxycodone Ir 5 Mg Tablet PO 5 mg Q4HR PRN Administration Pain Scale 4 - 7 Oxycodone HCl 10 mg 12/27/24 14:35 01/01/25 14:10 Oxycodone Ir 5 Mg Tablet PO 10 mg Q4HR PRN Administration Pain Scale 8 - 10 Polyethylene Glycol 17 gm 12/28/24 09:00 01/01/25 09:03 Polyethylene Glycol 3350 17 Gm Powd.Pack PO 12/28/25 08:59 17 gm DAILY FERN Administration Sennosides 17.2 mg 12/28/24 12:00 Sennosides 8.6 Mg Tablet PO 12/28/25 11:59 DAILY@12 PRN If no BM in 2 days Sodium Chloride 0 ml 12/27/24 14:23 Sodium Chloride 0.9 % 10 Ml Syringe IV-PUSH 12/27/25 14:22 PRN PRN Flush Sodium Chloride 10 ml 12/28/24 06:00 01/01/25 03:48 Sodium Chloride 0.9 % 10 Ml Syringe IV-PUSH 12/28/25 05:59 10 ml Q8H FERN Administration Vitamin D 125 mcg 12/28/24 09:00 01/01/25 09:03 Cholecalciferol 125 Mcg (5,000 Units) Capsule PO 12/28/25 08:59 125 mcg DAILY FERN Administration Assessment/Plan Assessment/Plan (1) Femoral neck fracture: Plan: PT to improve pt's strength, endurance, bed mobility, transfers (sit-stand), standing balance, gait quality on level surfaces and stairs, coordination and functional ADL skills. Will also work to improve pt's safety awareness during transfers and ambulation. OT for basic ADL re-training (bathing, dressing, toileting, continence, grooming, feeding, transferring), to increase activity tolerance and functional mobility and to evaluate for adaptive and assistive devices. Will work to improve pt's endurance and educate pt on fall prevention and energy conservationtechniques-pacing strategies and proper breathing techniques during functional tasks. Patient education Pressure ulcer prophylaxis; encourage mobilization, frequent postural changes, pressure-relief techniques DVT prophylaxis Encourage deep breathing exercise incentive spirometry. Monitor bladder. Toileting schedule. Continue current bladder management, with scans as needed and CIC if needed. Start bowel care program every day to obtain continence, prevent ileus. Maintain fall precautions Gait and balance retraining Provision of the necessary gait aids and functional adaptive equipment to enhance the patient's a functional protestant Encourage deep breathing exercises and incentive spirometry RD evaluation Ensure adequate nutrition and hydration Discharge planning. 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 Ren is a 84 year old male with multiple complex medical comorbidities as below including nonischemic cardiomyopathy with reduced ejection fraction and ICD/defibrillator in place, anticoagulated with Eliquis, chronic renal failure, likely underlying COPD, and others presenting with right femoral neck fracture after a fall, status post hemiarthroplasty December 24. ?Open noted 7.5. Overall stable from the last week or so. Defer to nephrology for recommendation of transfusion. Overall, he is improving from a symptom standpoint with minimal fatigue. Counseled family on expectations regarding hemoglobin levels postoperatively. -Ambulatory 16 feet with a walker. -Monitor for recurrent fever, did complete antibiotics for aspiration pneumonia -Therapy as ordered -Family instruction in the next week. -Will discuss CODE STATUS. Hospitalist to assist with management of comorbid medical conditions Pain control: Limit opioids. Wean as tolerated. Bowel and bladder:. Maintain bowel regimen. Monitor urine output. Skin: Maintain operative site, turn in position for offloading and pressure ulcer prevention Sleep: Optimize sleep-wake cycle DVT prophylaxis: Resume home Eliquis. Functional status: See therapy notes. With aspiration, have speech therapy screened patient for dysphagia Discharge planning:. Home in 2 weeks. Patient was personally seen by me, Dr. Black, on the day of encounter, reviewed the history and the relevant portions of the chart, including current orders, allied health and furniture sales consultant notes, labs/imaging and performed mckenna elements of exam and I formulated the plan of care and facilitated the medical decision making. I completed a substantive portion of this encounter, the medical decision makingportion of this note in its entirety, including Allied health note review, nursing note review, furniture sales consultant note review, discussion with nursing and case management, and more than 50% of my time was spent on counseling and coordination of care, time spent 26 minutes Documented By: Sotero Black MD 01/01/25 1522 Signed By: <Electronically signed by Sotero Black MD> 01/02/25 1008 [facility] Work Phone: [phone] 543-805203-19-2025 Progress note Author Winsome Goff [facility] Note Date/Time January 01, 2025 3:0 7pm [facility] [address] [place], [place] [id number] Nephrology Progress Note Signed Patient: Delano Ren MR#: [id number] : 1940 Acct:[id number] Age/Sex: 84 / M Adm Date: 5 Loc: Room: 0P6731-8 Type: ADM IN Attending Dr: Sotero Black MD Copies to: ~ Date of Service: 01/01/2025 Subjective Subjective Narrative: This is a 84 male with medical history of CKD IV, HTN, A-fib, HFrEF, DM, gout and HLD was initially admitted after mechanical fall for right hip fracture. Heunderwent surgery on December 23. His postoperative course was complicated by aspiration pneumonia and was started on IV antibiotic by the hospitalist. He also had acute on chronic anemia due to the possibly blood loss anemia and was transfused 2 unit of PRBC. He was also found to have WICHO on CKD in the setting of relative hypotension and blood loss anemia. His renal function improved withfluid resuscitation and blood transfusion. He was resumed on Lasix and had a good urine output. Patient moved to the inpatient rehab. Nephrology consultedfor WICHO on CKD care during his rehab stay. Interval history: Patient is up in the chair. Clinically he is doing better. He had 1 unit of packed RBCs yesterday and hemoglobin appropriately increased upto 8.3 g/dL. Patient denies any complaints. Creatinine was 3.4 mg/dL yesterday. He is using wheelchair. He stated that he is not able to bear weight on his legs yet. Exam Physical Exam Vital Signs: Temp Pulse Resp BP Pulse Ox O2 Del Method O2 Flow Rate 36.8 C 68 20 115/53 L 93 L Room Air 1 01/01/25 14:14 01/01/25 14:14 01/01/25 14:14 01/01/25 14:14 01/01/25 14:14 01/01/25 14:14 12/30/24 05:00 Narrative: Constitutional: Appears comfortable and not in distress HEENT: Significant pallor with no jaundice or cyanosis. Mucous membranes are moist. Cardiovascular: RRR, normal S1-S2, no gallop or rub, No JVD Respiratory: Good bilateral air entry no wheezing or crackles Gastrointestinal: Soft, non tender, positive bowel sounds Extremities: 1+ edema Skin: No rashes or bruises Musculoskeletal: s/p right hip hemiarthroplasty on 12/23/2024 Neurology: Awake, alert, oriented ?3, No focal motor or sensory deficits Psych: Normal mood and affect Objective Intake and Output I&O: Intake & Output 12/29/24 12/30/24 12/31/24 01/01/25 23:59 23:59 23:59 23:59 Intake Total 800 / 800 800 / 800 1005 / 1005 1120 / 1120 Output Total 1100 / 1100 600 / 600 775 / 775 Balance -300 / -300 200 / 200 230 / 230 1120 / 1120 Weight 95.6 kg 96.7 kg 95.6 kg Meds and Allergies Meds: Active Medications Acetaminophen (Acetaminophen 500 Mg Tablet) 500 mg PO Q4H PRN PRN Reason: Pain Stop: 12/27/25 14:22 Acetaminophen (Acetaminophen 500 Mg Tablet) 1,000 mg PO Q8HR PRN PRN Reason: pain Stop: 12/27/25 14:34 Last Admin: 01/01/25 03:46 Dose: 1,000 mg Al Hydrox/Mg Hydrox/Simethicone (Mag Hydrox/Al Hydrox/Simeth 30 Ml Udc) 30 ml PO Q4H PRN PRN Reason: Indigestion Stop: 12/27/25 14:22 Albuterol (Albuterol Neb 2.5 Mg/3 Ml Vial.Neb) 2.5 mg INHALATION Q2H PRN PRN Reason: Shortness Of Breath Stop: 12/27/25 14:34 Allopurinol (Allopurinol 100 Mg Tablet) 100 mg PO BID REPLACED BY [facility] Stop: 12/30/25 20:59 Last Admin: 01/01/25 09:03 Dose: 100 mg Amiodarone HCl (Amiodarone 200 Mg Tablet) 200 mg PO DAILY FERN Stop: 12/28/25 08:59 Last Admin: 01/01/25 09:03 Dose: 200 mg Apixaban (Apixaban 2.5 Mg Tablet) 2.5 mg PO BID FERN Stop: 12/28/25 08:59 Last Admin: 12/31/24 08:30 Dose: 2.5 mg Ascorbic Acid (Ascorbic Acid 500 Mg Tablet) 500 mg PO DAILY REPLACED BY [facility] Stop: 12/28/25 08:59 Last Admin: 01/01/25 09:03 Dose: 500 mg Balsam Qian/[place] Oil (Balsam Qian/[place] Oil Oint 60 Gm Tube) 1 applic TOPICAL BID PRN PRN Reason: tape caraballo Stop: 01/01/26 12:33 Bisacodyl (Bisacodyl 10 Mg Supp.Rect) 10 mg [place] DAILY PRN PRN Reason: Constipation Stop: 12/27/25 14:22 Budesonide/Formoterol Fumarate (Budesonide/Formoterol 160-4.5 Mcg 120 Puff/10.2 Gm Hfa.Aer.Ad) 2 puff INHALATION BID FERN Stop: 12/28/25 08:59 Last Admin: 01/01/25 11:59 Dose: Not Given Calcium Carbonate (Calcium Carbonate/Vitamin D3 500 Mg/200 Unit Tablet) 1 tab PO TID.WITH.MEALS FERN Stop: 12/27/25 16:59 Last Admin: 01/01/25 12:30 Dose: 1 tab Docusate Sodium (Docusate 100 Mg Capsule) 100 mg PO BID PRN PRN Reason: Constipation Stop: 12/27/25 14:22 Docusate Sodium (Docusate Enema 283 Mg/5 Ml Enema) 283 mg [place] DAILY PRN PRN Reason: Constipation Stop: 12/27/25 14:22 Ezetimibe (Ezetimibe 10 Mg Tablet) 10 mg PO DAILY FERN Stop: 12/28/25 08:59 Last Admin: 01/01/25 09:03 Dose: 10 mg Hydralazine HCl (Hydralazine 50 Mg Tablet) 100 mg PO TID FERN Stop: 12/27/25 21:59 Last Admin: 01/01/25 14:10 Dose: 100 mg Sodium Chloride (0.9% Sodium Chloride 100 Ml) 100 mls @ 20 mls/hr IV PROTOCOL PRN PRN Reason: BLOOD TRANSFUSION Stop: 01/01/25 15:09 Ipratropium [place] (Ipratropium [place] 0.5 Mg/2.5 Ml Vial.Neb) 0.5 mg INHALATION QID.RESP FERN Stop: 12/27/25 19:59 Last Admin: 01/01/25 12:00 Dose: Not Given Isosorbide Dinitrate (Isosorbide Dinitrate 10 Mg Tablet) 10 mg PO TID FERN Stop: 12/27/25 21:59 Last Admin: 01/01/25 14:10 Dose: 10 mg Lactulose (Lactulose 20 Gm/30 Ml Udc) 30 gm PO DAILY PRN PRN Reason: Constipation Stop: 12/27/25 14:22 Metoprolol Succinate (Metoprolol Succinate 100 Mg Tab.Er.24h) 100 mg PO DAILY FERN Stop: 12/28/25 08:59 Last Admin: 01/01/25 09:03 Dose: 100 mg Oxycodone HCl (Oxycodone Ir 5 Mg Tablet) 5 mg PO Q4HR PRN PRN Reason: Pain Scale 4 - 7 Last Admin: 12/30/24 05:40 Dose: 5 mg Oxycodone HCl (Oxycodone Ir 5 Mg Tablet) 10 mg PO Q4HR PRN PRN Reason: Pain Scale 8 - 10 Last Admin: 01/01/25 14:10 Dose: 10 mg Polyethylene Glycol (Polyethylene Glycol 3350 17 Gm Powd.Pack) 17 gm PO DAILY FERN Stop: 12/28/25 08:59 Last Admin: 01/01/25 09:03 Dose: 17 gm Sennosides (Sennosides 8.6 Mg Tablet) 17.2 mg PO DAILY@12 PRN PRN Reason: If no BM in 2 days Stop: 12/28/25 11:59 Sodium Chloride (Sodium Chloride 0.9 % 10 Ml Syringe) 0 ml IV-PUSH PRN PRN PRN Reason: Flush Stop: 12/27/25 14:22 Sodium Chloride (Sodium Chloride 0.9 % 10 Ml Syringe) 10 ml IV-PUSH Q8H FERN Stop: 12/28/25 05:59 Last Admin: 01/01/25 03:48 Dose: 10 ml Vitamin D (Cholecalciferol 125 Mcg (5,000 Units) Capsule) 125 mcg PO DAILY FERN Stop: 12/28/25 08:59 Last Admin: 01/01/25 09:03 Dose: 125 mcg Allergies simvastatin Allergy (Unknown, Verified 12/19/24 08:50) Unknown Reaction Ykwfgpy-ZOE-ScM Reductase Inhibitor (Zoqhblh-Fzm-Fqn Reductase Inhibitor) Allergy (Unknown, Verified 12/19/24 08:50) Muscle Pain tramadol Allergy (Verified 12/19/24 08:50) Itching niacin ER Allergy (Uncoded 08/22/24 08:31) itching Results - Nephrology Labs 01/01/25 05:04 12/31/24 04:56 Radiology Impressions Impressions - last 24 hours: Any impression(s) listed above is documentation that was entered by the reading physician into a diagnostic report(s) for Delano Ren. I have reviewed the report(s) and am incorporating any findings in the treatment plan of this patient where applicable. A&P - Nephrology Assessment/Plan (1) Acute kidney injury superimposed on CKD: Assessment/Problem Details: He has a WICHO on CKD due to the relative hypotension and postoperative blood lossanemia creatinine function has improved however started to drift up again with lower blood pressure and drop of hemoglobin. Patient back on Eliquis. (2) Aspiration pneumonia: Assessment/Problem Details: Recovered, he is done with antibiotics (3) Stage 4 chronic kidney disease: Assessment/Problem Details: He has a CKD due to the longstanding DM and HTN with baseline creatinine 2.6-3 mg/dL. (4) Chronic HFrEF (heart failure with reduced ejection fraction): Assessment/Problem Details: Patient appears to be well compensated. (5) Femoral neck fracture: Assessment/Problem Details: He is s/p ORIF on 12/23/2024 (6) Hypertensive chronic kidney disease with stage 1 through stage 4 chronic kidney disease, or unspecified chronic kidney disease: Assessment/Problem Details: His blood pressure is controlled. Plan * Creatinine did improve from peak 3.7 however it is slightly up again to 3.4 mg/dL possibly related to drop of hemoglobin and low blood pressure. He still off furosemide and losartan. Baseline creatinine variable between 2.5 to 3 mg/dL, patient has CKD stage IV and he follow-up with Dr. Syed in [place]. * Hemoglobin did improve after 1 unit of packed RBCs. * Blood pressure still relatively low. Will decrease hydralazine to 50 mg twice a day. Amlodipine was stopped yesterday. Patient on metoprolol 100 mg daily that can be decreased to 50 mg if blood pressure still low. * Check renal function and CBC daily. Documented By: Winsome Goff MD 01/01/25 8699 Signed By: <Electronically signed by MD Winsome Goff> 01/01/25 0823 [facility] Work Phone: [phone] Progress note Author Winsome Goff [facility] Note Date/Time December 31, 2024 3:1 4pm [facility] [address] [place] [address] Nephrology Progress Note Signed Patient: Delano Ren MR#: [id number] : 1940 Acct:[id number] Age/Sex: 84 / M Adm Date: 5 Loc: Room: 3X9695-5 Type: ADM IN Attending Dr: Sotero Black MD Copies to: ~ Date of Service: 12/31/2024 Subjective Subjective Narrative: This is a 84 male with medical history of CKD IV, HTN, A-fib, HFrEF, DM, gout and HLD was initially admitted after mechanical fall for right hip fracture. Heunderwent surgery on December 23. His postoperative course was complicated by aspiration pneumonia and was started on IV antibiotic by the hospitalist. He also had acute on chronic anemia due to the possibly blood loss anemia and was transfused 2 unit of PRBC. He was also found to have WICHO on CKD in the setting of relative hypotension and blood loss anemia. His renal function improved withfluid resuscitation and blood transfusion. He was resumed on Lasix and had a good urine output. Patient moved to the inpatient rehab. Nephrology consultedfor WICHO on CKD care during his rehab stay. Interval history: Patient is up in the chair. Clinically he is doing better. Hemoglobin still trending down slowly 7.6 g/dL with drop of the blood pressure 99/59. Patient isback on apixaban. Platelet count stable to 99,000. Creatinine slowly rising as well with low blood pressure and drop hemoglobin 3.4mg/dL and BUN 94 mg/dL. He is using wheelchair. He stated that he is not able to bear weight on his legs yet. Exam Physical Exam Vital Signs: Temp Pulse Resp BP Pulse Ox O2 Del Method O2 Flow Rate 36.7 C 82 18 99/59 L 94 L Room Air 1 12/30/24 14:23 12/31/24 08:38 12/31/24 08:38 12/31/24 08:38 12/31/24 08:38 12/31/24 09:00 12/30/24 05:00 Narrative: Constitutional: Appears comfortable and not in distress HEENT: Significant pallor with no jaundice or cyanosis. Mucous membranes are moist. Cardiovascular: RRR, normal S1-S2, no gallop or rub, No JVD Respiratory: Good bilateral air entry no wheezing or crackles Gastrointestinal: Soft, non tender, positive bowel sounds Extremities: 1+ edema Skin: No rashes or bruises Musculoskeletal: s/p right hip hemiarthroplasty on 12/23/2024 Neurology: Awake, alert, oriented ?3, No focal motor or sensory deficits Psych: Normal mood and affect Objective Intake and Output I&O: Intake & Output 12/28/24 12/29/24 12/30/24 12/31/24 23:59 23:59 23:59 23:59 Intake Total 1660 / 1660 800 / 800 800 / 800 440 / 440 Output Total 1700 / 1700 1100 / 1100 600 / 600 300 / 300 Balance -40 / -40 -300 / -300 200 / 200 140 / 140 Weight 94.7 kg 95.6 kg 96.7 kg 95.6 kg Meds and Allergies Meds: Active Medications Acetaminophen (Acetaminophen 500 Mg Tablet) 500 mg PO Q4H PRN PRN Reason: Pain Stop: 12/27/25 14:22 Acetaminophen (Acetaminophen 500 Mg Tablet) 1,000 mg PO Q8HR PRN PRN Reason: pain Stop: 12/27/25 14:34 Al Hydrox/Mg Hydrox/Simethicone (Mag Hydrox/Al Hydrox/Simeth 30 Ml Udc) 30 ml PO Q4H PRN PRN Reason: Indigestion Stop: 12/27/25 14:22 Albuterol (Albuterol Neb 2.5 Mg/3 Ml Vial.Neb) 2.5 mg INHALATION Q2H PRN PRN Reason: Shortness Of Breath Stop: 12/27/25 14:34 Allopurinol (Allopurinol 100 Mg Tablet) 100 mg PO BID REPLACED BY [facility] Stop: 12/30/25 20:59 Last Admin: 12/31/24 08:30 Dose: 100 mg Amiodarone HCl (Amiodarone 200 Mg Tablet) 200 mg PO DAILY FERN Stop: 12/28/25 08:59 Last Admin: 12/31/24 08:32 Dose: 200 mg Apixaban (Apixaban 2.5 Mg Tablet) 2.5 mg PO BID FERN Stop: 12/28/25 08:59 Last Admin: 12/31/24 08:30 Dose: 2.5 mg Ascorbic Acid (Ascorbic Acid 500 Mg Tablet) 500 mg PO DAILY REPLACED BY [facility] Stop: 12/28/25 08:59 Last Admin: 12/31/24 08:30 Dose: 500 mg Bisacodyl (Bisacodyl 10 Mg Supp.Rect) 10 mg [place] DAILY PRN PRN Reason: Constipation Stop: 12/27/25 14:22 Budesonide/Formoterol Fumarate (Budesonide/Formoterol 160-4.5 Mcg 120 Puff/10.2 Gm Hfa.Aer.Ad) 2 puff INHALATION BID FERN Stop: 12/28/25 08:59 Last Admin: 12/31/24 06:34 Dose: Not Given Calcium Carbonate (Calcium Carbonate/Vitamin D3 500 Mg/200 Unit Tablet) 1 tab PO TID.WITH.MEALS FERN Stop: 12/27/25 16:59 Last Admin: 12/31/24 12:53 Dose: 1 tab Docusate Sodium (Docusate 100 Mg Capsule) 100 mg PO BID PRN PRN Reason: Constipation Stop: 12/27/25 14:22 Docusate Sodium (Docusate Enema 283 Mg/5 Ml Enema) 283 mg [place] DAILY PRN PRN Reason: Constipation Stop: 12/27/25 14:22 Ezetimibe (Ezetimibe 10 Mg Tablet) 10 mg PO DAILY REPLACED BY [facility] Stop: 12/28/25 08:59 Last Admin: 12/31/24 08:30 Dose: 10 mg Hydralazine HCl (Hydralazine 50 Mg Tablet) 100 mg PO TID REPLACED BY [facility] Stop: 12/27/25 21:59 Last Admin: 12/31/24 08:31 Dose: Not Given Sodium Chloride (0.9% Sodium Chloride 100 Ml) 100 mls @ 20 mls/hr IV PROTOCOL PRN PRN Reason: BLOOD TRANSFUSION Stop: 01/01/25 12:03 Ipratropium [place] (Ipratropium [place] 0.5 Mg/2.5 Ml Vial.Neb) 0.5 mg INHALATION QID.RESP FERN Stop: 12/27/25 19:59 Last Admin: 12/31/24 13:07 Dose: Not Given Isosorbide Dinitrate (Isosorbide Dinitrate 10 Mg Tablet) 10 mg PO TID FERN Stop: 12/27/25 21:59 Last Admin: 12/31/24 08:30 Dose: 10 mg Lactulose (Lactulose 20 Gm/30 Ml Udc) 30 gm PO DAILY PRN PRN Reason: Constipation Stop: 12/27/25 14:22 Metoprolol Succinate (Metoprolol Succinate 100 Mg Tab.Er.24h) 100 mg PO DAILY FERN Stop: 12/28/25 08:59 Last Admin: 12/31/24 08:30 Dose: Not Given Oxycodone HCl (Oxycodone Ir 5 Mg Tablet) 5 mg PO Q4HR PRN PRN Reason: Pain Scale 4 - 7 Last Admin: 12/30/24 05:40 Dose: 5 mg Oxycodone HCl (Oxycodone Ir 5 Mg Tablet) 10 mg PO Q4HR PRN PRN Reason: Pain Scale 8 - 10 Last Admin: 12/30/24 21:17 Dose: 10 mg Polyethylene Glycol (Polyethylene Glycol 3350 17 Gm Powd.Pack) 17 gm PO DAILY FERN Stop: 12/28/25 08:59 Last Admin: 12/31/24 08:30 Dose: 17 gm Sennosides (Sennosides 8.6 Mg Tablet) 17.2 mg PO DAILY@12 PRN PRN Reason: If no BM in 2 days Stop: 12/28/25 11:59 Sodium Chloride (Sodium Chloride 0.9 % 10 Ml Syringe) 0 ml IV-PUSH PRN PRN PRN Reason: Flush Stop: 12/27/25 14:22 Sodium Chloride (Sodium Chloride 0.9 % 10 Ml Syringe) 10 ml IV-PUSH Q8H FERN Stop: 12/28/25 05:59 Last Admin: 12/31/24 05:13 Dose: 10 ml Vitamin D (Cholecalciferol 125 Mcg (5,000 Units) Capsule) 125 mcg PO DAILY FERN Stop: 12/28/25 08:59 Last Admin: 12/31/24 08:30 Dose: 125 mcg Allergies simvastatin Allergy (Unknown, Verified 12/19/24 08:50) Unknown Reaction Zhospze-SPM-NhV Reductase Inhibitor (Ierqwwc-Nhq-Muz Reductase Inhibitor) Allergy (Unknown, Verified 12/19/24 08:50) Muscle Pain tramadol Allergy (Verified 12/19/24 08:50) Itching niacin ER Allergy (Uncoded 08/22/24 08:31) itching Results - Nephrology Labs 12/31/24 04:56 12/31/24 04:56 Labs: 12/31/24 04:56 BUN 94 H Creatinine 3.24 H Phosphorus 4.3 Albumin 3.0 L Radiology Impressions Impressions - last 24 hours: Any impression(s) listed above is documentation that was entered by the reading physician into a diagnostic report(s) for Delano Ren. I have reviewed the report(s) and am incorporating any findings in the treatment plan of this patient where applicable. A&P - Nephrology Assessment/Plan (1) Acute kidney injury superimposed on CKD: Assessment/Problem Details: He has a WICHO on CKD due to the relative hypotension and postoperative blood lossanemia creatinine function has improved however started to drift up again with lower blood pressure and drop of hemoglobin. Patient back on Eliquis. (2) Aspiration pneumonia: Assessment/Problem Details: Recovered, he is done with antibiotics (3) Stage 4 chronic kidney disease: Assessment/Problem Details: He has a CKD due to the longstanding DM and HTN with baseline creatinine 2.6-3 mg/dL. (4) Chronic HFrEF (heart failure with reduced ejection fraction): Assessment/Problem Details: Patient appears to be well compensated. (5) Femoral neck fracture: Assessment/Problem Details: He is s/p ORIF on 12/23/2024 (6) Hypertensive chronic kidney disease with stage 1 through stage 4 chronic kidney disease, or unspecified chronic kidney disease: Assessment/Problem Details: His blood pressure is controlled. Plan * Creatinine did improve from peak 3.7 however it is slightly up again to 3.4 mg/dL possibly related to drop of hemoglobin. He still off furosemide and losartan. Blood pressure is low with drop of hemoglobin. Baseline creatinine variable between 2.5 to 3 mg/dL, patient has CKD stage IV and he follow-up with Dr. Syed in [place]. * Hemoglobin did drop down to 7.6 g/dL after restarting Eliquis 2.5 mg twice a day. Blood pressure is low as well. Will transfuse 1 unit of packed RBCs. Patient has a ventricular paced rhythm. Consider discontinuation of apixaban if he continues to have drop of hemoglobin. Patient may be eligible for Watchman device as outpatient. * Will continue hydralazine, Isordil and metoprolol. Discontinue amlodipine as blood pressure is lower. * Continue allopurinol to 100 mg twice a day as uric acid still elevated 10.6 g/dL. * Check renal function and CBC daily. Documented By: Winsome Goff MD 12/31/24 8208 Signed By: <Electronically signed by MD Winsome Goff> 12/31/24 1514 [facility] Work Phone: [phone] Progress note Author Sotero Black [facility] Note Date/Time December 31, 2024 12: 09pm [facility] [address] [place] [address] Physiatry(Rehab) Progress Note Signed Patient: Delano Ren MR#: [id number] : 1940 Acct:[id number] Age/Sex: 84 / M Adm Date: 5 Loc: Room: [address] [place] [address] Type: ADM IN Attending Dr: Sotero Black MD Copies to: ~ Date of Service: 12/30/2024 Subjective Subjective Narrative: Mr. Ren is a 84 year old male with multiple complex medical comorbidities as below including nonischemic cardiomyopathy with reduced ejection fraction and ICD/defibrillator in place, anticoagulated with Eliquis, chronic renal failure, likely underlying COPD, and others presenting with right femoral neck fracture after a fall, status post hemiarthroplasty December 24. Postop course notable for acute on chronic renal failure and hypoxemic respiratory failure, multifactorial, completed treatment for aspiration pneumonia. Interval history: His hemoglobin is still low, 7.7. Family at bedside and very concerned. We spoke about the multifactorial etiology of this and continuing to watch his hemoglobin. I did tell him that nephrology was following as well and if it drops further tomorrow or fails to improve he may be transfused. We also talkedabout his Eliquis being resumed. Review of Systems Review of Systems All other systems reviewed & are negative unless noted below or in HPI Exam Physical Exam Vital Signs: Temp Pulse Resp BP Pulse Ox O2 Del Method O2 Flow Rate 98.1 F 71 18 121/65 96 Room Air 1 12/30/24 14:23 12/30/24 14:23 12/30/24 14:23 12/30/24 14:23 12/30/24 14:23 12/30/24 14:23 12/30/24 05:00 Narrative: Pleasant No acute distress Nonlabored breathing Awake and alert. Oriented x 3. Right lower extremity exam limited by pain, fair strength throughout 1+ right lower extremity edema Objective Labs 12/31/24 04:56 12/31/24 04:56 Labs: Laboratory Results - last 24 hr 12/30/24 12/30/24 04:56 04:57 Corrected WBC 8.8 Uncorrected WBC Count 8.8 RBC 2.39 L Hgb 7.7 L Hct 22.5 L MCV 94.0 MCH 32.4 MCHC 34.4 RDW 15.5 H Plt Count 241 MPV 7.6 Neut % (Auto) N/A Lymph % (Auto) N/A Reagan % (Auto) N/A Eos % (Auto) N/A Baso % (Auto) N/A Nucleat RBC Rel Count N/A Neut # (Auto) N/A Lymph # (Auto) N/A Reagan # (Auto) N/A Eos # (Auto) N/A Baso # (Auto) N/A Lymphocytes % 9 L Monocytes % 6 Basophils % 1 Metamyelocytes % 1 H Myelocytes % 4 H Segmented Neutrophils 80 H Platelet Estimate Normal Plt Morphology Comment Normal RBC Morphology N/A Polychromasia Slight Hypochromasia Slight Anisocytosis Slight PHA Creatinine Clear 21.04 Sodium 136 Potassium 4.3 Chloride 93 L Carbon Dioxide 35.5 H Anion Gap 11.8 BUN 94 H Creatinine 3.21 H Est GFR (CKD-EPI) 18.539 Glucose 123 H Uric Acid 10.6 H Calcium 9.1 Medications and Allergies Allergies and Active Meds: Allergies simvastatin Allergy (Unknown, Verified 12/19/24 08:50) Unknown Reaction Zforqas-VNX-XwI Reductase Inhibitor (Merqcfg-Hwv-Tkv Reductase Inhibitor) Allergy (Unknown, Verified 12/19/24 08:50) Muscle Pain tramadol Allergy (Verified 12/19/24 08:50) Itching niacin ER Allergy (Uncoded 08/22/24 08:31) itching Active Medications Generic Name Dose Route Start Last Admin Trade Name Freq PRN Reason Stop Dose Admin Acetaminophen 500 mg 12/27/24 14:23 Acetaminophen 500 Mg Tablet PO 12/27/25 14:22 Q4H PRN Pain Acetaminophen 1,000 mg 12/27/24 14:35 Acetaminophen 500 Mg Tablet PO 12/27/25 14:34 Q8HR PRN pain Al Hydrox/Mg Hydrox/Simethicone 30 ml 12/27/24 14:23 Mag Hydrox/Al Hydrox/Simeth 30 Ml Udc PO 12/27/25 14:22 Q4H PRN Indigestion Albuterol 2.5 mg 12/27/24 14:35 Albuterol Neb 2.5 Mg/3 Ml Vial.Neb INHALATION 12/27/25 14:34 Q2H PRN Shortness Of Breath Allopurinol 100 mg 12/28/24 09:00 12/30/24 10:48 Allopurinol 100 Mg Tablet PO 12/28/25 08:59 Not Given DAILY REPLACED BY [facility] Amiodarone HCl 200 mg 12/28/24 09:00 12/30/24 10:49 Amiodarone 200 Mg Tablet PO 12/28/25 08:59 Not Given DAILY REPLACED BY [facility] Amlodipine Besylate 10 mg 12/28/24 09:00 12/30/24 10:49 Amlodipine 10 Mg Tablet PO 12/28/25 08:59 Not Given DAILY REPLACED BY [facility] Apixaban 2.5 mg 12/28/24 09:00 12/30/24 10:49 Apixaban 2.5 Mg Tablet PO 12/28/25 08:59 Not Given BID REPLACED BY [facility] Ascorbic Acid 500 mg 12/28/24 09:00 12/30/24 10:49 Ascorbic Acid 500 Mg Tablet PO 12/28/25 08:59 Not Given DAILY REPLACED BY [facility] Bisacodyl 10 mg 12/27/24 14:23 Bisacodyl 10 Mg Supp.Rect [place] 12/27/25 14:22 DAILY PRN Constipation Budesonide/Formoterol Fumarate 2 puff 12/28/24 09:00 12/30/24 06:37 Budesonide/Formoterol 160-4.5 Mcg 120 Puff/10.2 Gm Hfa.Aer.Ad INHALATION 12/28/25 08:59 Not Given BID REPLACED BY [facility] Calcium Carbonate 1 tab 12/27/24 17:00 12/30/24 11:04 Calcium Carbonate/Vitamin D3 500 Mg/200 Unit Tablet PO 12/27/25 16:59 1 tab TID.WITH.MEALS REPLACED BY [facility] Administration Docusate Sodium 100 mg 12/27/24 14:23 Docusate 100 Mg Capsule PO 12/27/25 14:22 BID PRN Constipation Docusate Sodium 283 mg 12/27/24 14:23 Docusate Enema 283 Mg/5 Ml Enema [place] 12/27/25 14:22 DAILY PRN Constipation Ezetimibe 10 mg 12/28/24 09:00 12/30/24 10:50 Ezetimibe 10 Mg Tablet PO 12/28/25 08:59 Not Given DAILY REPLACED BY [facility] Hydralazine HCl 100 mg 12/27/24 22:00 12/30/24 10:50 Hydralazine 50 Mg Tablet PO 12/27/25 21:59 Not Given TID FERN Ipratropium [place] 0.5 mg 12/27/24 20:00 12/30/24 12:10 Ipratropium [place] 0.5 Mg/2.5 Ml Vial.Neb INHALATION 12/27/25 19:59 Not Given QID.RESP FERN Isosorbide Dinitrate 10 mg 12/27/24 22:00 12/30/24 10:50 Isosorbide Dinitrate 10 Mg Tablet PO 12/27/25 21:59 Not Given TID FERN Lactulose 30 gm 12/27/24 14:23 Lactulose 20 Gm/30 Ml Udc PO 12/27/25 14:22 DAILY PRN Constipation Metoprolol Succinate 100 mg 12/28/24 09:00 12/30/24 10:50 Metoprolol Succinate 100 Mg Tab.Er.24h PO 12/28/25 08:59 Not Given DAILY REPLACED BY [facility] Oxycodone HCl 5 mg 12/27/24 14:35 12/30/24 05:40 Oxycodone Ir 5 Mg Tablet PO 5 mg Q4HR PRN Administration Pain Scale 4 - 7 Oxycodone HCl 10 mg 12/27/24 14:35 12/30/24 11:07 Oxycodone Ir 5 Mg Tablet PO 10 mg Q4HR PRN Administration Pain Scale 8 - 10 Polyethylene Glycol 17 gm 12/28/24 09:00 12/30/24 10:50 Polyethylene Glycol 3350 17 Gm Powd.Pack PO 12/28/25 08:59 Not Given DAILY REPLACED BY [facility] Sennosides 17.2 mg 12/28/24 12:00 Sennosides 8.6 Mg Tablet PO 12/28/25 11:59 DAILY@12 PRN If no BM in 2 days Sodium Chloride 0 ml 12/27/24 14:23 Sodium Chloride 0.9 % 10 Ml Syringe IV-PUSH 12/27/25 14:22 PRN PRN Flush Sodium Chloride 10 ml 12/28/24 06:00 12/30/24 06:39 Sodium Chloride 0.9 % 10 Ml Syringe IV-PUSH 12/28/25 05:59 10 ml Q8H FERN Administration Vitamin D 125 mcg 12/28/24 09:00 12/30/24 10:49 Cholecalciferol 125 Mcg (5,000 Units) Capsule PO 12/28/25 08:59 Not Given DAILY FERN Assessment/Plan Assessment/Plan (1) Femoral neck fracture: Plan: PT to improve pt's strength, endurance, bed mobility, transfers (sit-stand), standing balance, gait quality on level surfaces and stairs, coordination and functional ADL skills. Will also work to improve pt's safety awareness during transfers and ambulation. OT for basic ADL re-training (bathing, dressing, toileting, continence, grooming, feeding, transferring), to increase activity tolerance and functional mobility and to evaluate for adaptive and assistive devices. Will work to improve pt's endurance and educate pt on fall prevention and energy conservationtechniques-pacing strategies and proper breathing techniques during functional tasks. Patient education Pressure ulcer prophylaxis; encourage mobilization, frequent postural changes, pressure-relief techniques DVT prophylaxis Encourage deep breathing exercise incentive spirometry. Monitor bladder. Toileting schedule. Continue current bladder management, with scans as needed and CIC if needed. Start bowel care program every day to obtain continence, prevent ileus. Maintain fall precautions Gait and balance retraining Provision of the necessary gait aids and functional adaptive equipment to enhance the patient's a functional protestant Encourage deep breathing exercises and incentive spirometry RD evaluation Ensure adequate nutrition and hydration Discharge planning. 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 Ren is a 84 year old male with multiple complex medical comorbidities as below including nonischemic cardiomyopathy with reduced ejection fraction and ICD/defibrillator in place, anticoagulated with Eliquis, chronic renal failure, likely underlying COPD, and others presenting with right femoral neck fracture after a fall, status post hemiarthroplasty December 24. ? Trend hemoglobin. If no improvement may transfuse tomorrow. Family aware they did report to me that the surgeon spent a lot of time stopping bleeders intraoperatively.. Appreciate nephrology recommendations. -Nephrology consult for renal failure postop and diuretic management -Monitor for recurrent fever, did complete antibiotics for aspiration pneumonia -Therapy as ordered -Family instruction in the next week. -Will discuss CODE STATUS. Hospitalist to assist with management of comorbid medical conditions Pain control: Limit opioids. Wean as tolerated. Bowel and bladder:. Maintain bowel regimen. Monitor urine output. Skin: Maintain operative site, turn in position for offloading and pressure ulcer prevention Sleep: Optimize sleep-wake cycle DVT prophylaxis: Resume home Eliquis. Functional status: See therapy notes. With aspiration, have speech therapy screened patient for dysphagia Discharge planning:. Home in 2 weeks. Patient was personally seen by me, Dr. Black, on the day of encounter, reviewed the history and the relevant portions of the chart, including current orders, allied health and furniture sales consultant notes, labs/imaging and performed mckenna elements of exam and I formulated the plan of care and facilitated the medical decision making. I completed a substantive portion of this encounter, the medical decision makingportion of this note in its entirety, including Allied health note review, nursing note review, furniture sales consultant note review, discussion with nursing and case management, and more than 50% of my time was spent on counseling and coordination of care, time spent 20 minutes Documented By: Sotero Black MD 12/30/24 1518 Signed By: <Electronically signed by Sotero Black MD> 12/31/24 8739 [facility] Work Phone: [phone] 618-793003-17-2025 Progress note Author Winsome Goff [facility] Note Date/Time December 30, 2024 5:1 3pm [facility] [address] [place] [address] Nephrology Progress Note Signed Patient: Delano Ren MR#: [id number] : 1940 Acct:[id number] Age/Sex: 84 / M Adm Date: 5 Loc: Room: [address] [place] [address] Type: ADM IN Attending Dr: Sotero Black MD Copies to: ~ Date of Service: 12/30/2024 Subjective Subjective Narrative: This is a 84 male with medical history of CKD IV, HTN, A-fib, HFrEF, DM, gout and HLD was initially admitted after mechanical fall for right hip fracture. Heunderwent surgery on December 23. His postoperative course was complicated by aspiration pneumonia and was started on IV antibiotic by the hospitalist. He also had acute on chronic anemia due to the possibly blood loss anemia and was transfused 2 unit of PRBC. He was also found to have WICHO on CKD in the setting of relative hypotension and blood loss anemia. His renal function improved withfluid resuscitation and blood transfusion. He was resumed on Lasix and had a good urine output. Patient moved to the inpatient rehab. Nephrology consultedfor WICHO on CKD care during his rehab stay. Interval history: Patient is up in the bed. He looks comfortable with no shortness of breath. He is using wheelchair. He stated that he is not able to bear weight on his legs yet. Blood pressure is stable 120s over 60s. He has good urine output with no diuretics. Patient was restarted back on apixaban however his hemoglobin today is slightly down to 7.7 g/dL. No obvious blood loss. Exam Physical Exam Vital Signs: Temp Pulse Resp BP Pulse Ox O2 Del Method O2 Flow Rate 36.7 C 71 18 121/65 96 Room Air 1 12/30/24 14:23 12/30/24 14:23 12/30/24 14:23 12/30/24 14:23 12/30/24 14:23 12/30/24 14:23 12/30/24 05:00 Narrative: Constitutional: Appears comfortable and not in distress HEENT: Significant pallor with no jaundice or cyanosis. Mucous membranes are moist. Cardiovascular: RRR, normal S1-S2, no gallop or rub, No JVD Respiratory: Good bilateral air entry no wheezing or crackles Gastrointestinal: Soft, non tender, positive bowel sounds Extremities: 1+ edema Skin: No rashes or bruises Musculoskeletal: s/p right hip hemiarthroplasty on 12/23/2024 Neurology: Awake, alert, oriented ?3, No focal motor or sensory deficits Psych: Normal mood and affect Objective Intake and Output I&O: Intake & Output 12/27/24 12/28/24 12/29/2412/30/25 23:59 23:59 23:59 23:59 Intake Total 1660 / 1660 800 / 800 250 / 250 Output Total 550 / 550 1700 / 1700 1100 / 1100 600 / 600 Balance -550 / -550 -40 / -40 -300 / -300 -350 / -350 Weight 95.6 kg 94.7 kg 95.6 kg 96.7 kg Meds and Allergies Meds: Active Medications Acetaminophen (Acetaminophen 500 Mg Tablet) 500 mg PO Q4H PRN PRN Reason: Pain Stop: 12/27/25 14:22 Acetaminophen (Acetaminophen 500 Mg Tablet) 1,000 mg PO Q8HR PRN PRN Reason: pain Stop: 12/27/25 14:34 Al Hydrox/Mg Hydrox/Simethicone (Mag Hydrox/Al Hydrox/Simeth 30 Ml Udc) 30 ml PO Q4H PRN PRN Reason: Indigestion Stop: 12/27/25 14:22 Albuterol (Albuterol Neb 2.5 Mg/3 Ml Vial.Neb) 2.5 mg INHALATION Q2H PRN PRN Reason: Shortness Of Breath Stop: 12/27/25 14:34 Allopurinol (Allopurinol 100 Mg Tablet) 100 mg PO DAILY FERN Stop: 12/28/25 08:59 Last Admin: 12/30/24 10:48 Dose: Not Given Amiodarone HCl (Amiodarone 200 Mg Tablet) 200 mg PO DAILY FERN Stop: 12/28/25 08:59 Last Admin: 12/30/24 10:49 Dose: Not Given Amlodipine Besylate (Amlodipine 10 Mg Tablet) 10 mg PO DAILY FERN Stop: 12/28/25 08:59 Last Admin: 12/30/24 10:49 Dose: Not Given Apixaban (Apixaban 2.5 Mg Tablet) 2.5 mg PO BID FERN Stop: 12/28/25 08:59 Last Admin: 12/30/24 10:49 Dose: Not Given Ascorbic Acid (Ascorbic Acid 500 Mg Tablet) 500 mg PO DAILY FERN Stop: 12/28/25 08:59 Last Admin: 12/30/24 10:49 Dose: Not Given Bisacodyl (Bisacodyl 10 Mg Supp.Rect) 10 mg [place] DAILY PRN PRN Reason: Constipation Stop: 12/27/25 14:22 Budesonide/Formoterol Fumarate (Budesonide/Formoterol 160-4.5 Mcg 120 Puff/10.2 Gm Hfa.Aer.Ad) 2 puff INHALATION BID FERN Stop: 12/28/25 08:59 Last Admin: 12/30/24 06:37 Dose: Not Given Calcium Carbonate (Calcium Carbonate/Vitamin D3 500 Mg/200 Unit Tablet) 1 tab PO TID.WITH.MEALS FERN Stop: 12/27/25 16:59 Last Admin: 12/30/24 11:04 Dose: 1 tab Docusate Sodium (Docusate 100 Mg Capsule) 100 mg PO BID PRN PRN Reason: Constipation Stop: 12/27/25 14:22 Docusate Sodium (Docusate Enema 283 Mg/5 Ml Enema) 283 mg [place] DAILY PRN PRN Reason: Constipation Stop: 12/27/25 14:22 Ezetimibe (Ezetimibe 10 Mg Tablet) 10 mg PO DAILY FERN Stop: 12/28/25 08:59 Last Admin: 12/30/24 10:50 Dose: Not Given Hydralazine HCl (Hydralazine 50 Mg Tablet) 100 mg PO TID FERN Stop: 12/27/25 21:59 Last Admin: 12/30/24 15:11 Dose: 100 mg Ipratropium [place] (Ipratropium [place] 0.5 Mg/2.5 Ml Vial.Neb) 0.5 mg INHALATION QID.RESP FERN Stop: 12/27/25 19:59 Last Admin: 12/30/24 16:45 Dose: Not Given Isosorbide Dinitrate (Isosorbide Dinitrate 10 Mg Tablet) 10 mg PO TID FERN Stop: 12/27/25 21:59 Last Admin: 12/30/24 15:11 Dose: 10 mg Lactulose (Lactulose 20 Gm/30 Ml Udc) 30 gm PO DAILY PRN PRN Reason: Constipation Stop: 12/27/25 14:22 Metoprolol Succinate (Metoprolol Succinate 100 Mg Tab.Er.24h) 100 mg PO DAILY REPLACED BY [facility] Stop: 12/28/25 08:59 Last Admin: 12/30/24 10:50 Dose: Not Given Oxycodone HCl (Oxycodone Ir 5 Mg Tablet) 5 mg PO Q4HR PRN PRN Reason: Pain Scale 4 - 7 Last Admin: 12/30/24 05:40 Dose: 5 mg Oxycodone HCl (Oxycodone Ir 5 Mg Tablet) 10 mg PO Q4HR PRN PRN Reason: Pain Scale 8 - 10 Last Admin: 12/30/24 15:10 Dose: 10 mg Polyethylene Glycol (Polyethylene Glycol 3350 17 Gm Powd.Pack) 17 gm PO DAILY FERN Stop: 12/28/25 08:59 Last Admin: 12/30/24 10:50 Dose: Not Given Sennosides (Sennosides 8.6 Mg Tablet) 17.2 mg PO DAILY@12 PRN PRN Reason: If no BM in 2 days Stop: 12/28/25 11:59 Sodium Chloride (Sodium Chloride 0.9 % 10 Ml Syringe) 0 ml IV-PUSH PRN PRN PRN Reason: Flush Stop: 12/27/25 14:22 Sodium Chloride (Sodium Chloride 0.9 % 10 Ml Syringe) 10 ml IV-PUSH Q8H FERN Stop: 12/28/25 05:59 Last Admin: 12/30/24 15:11 Dose: 10 ml Vitamin D (Cholecalciferol 125 Mcg (5,000 Units) Capsule) 125 mcg PO DAILY FERN Stop: 12/28/25 08:59 Last Admin: 12/30/24 10:49 Dose: Not Given Allergies simvastatin Allergy (Unknown, Verified 12/19/24 08:50) Unknown Reaction Crcynxn-UOQ-HvN Reductase Inhibitor (Xzplinb-Rgl-Kbc Reductase Inhibitor) Allergy (Unknown, Verified 12/19/24 08:50) Muscle Pain tramadol Allergy (Verified 12/19/24 08:50) Itching niacin ER Allergy (Uncoded 08/22/24 08:31) itching Results - Nephrology Labs 12/30/24 04:57 12/30/24 04:56 Labs: 12/30/24 04:56 BUN 94 H Creatinine 3.21 H Radiology Impressions Impressions - last 24 hours: Impressions Hip X-Ray 12/30/24 05:00 IMPRESSION: NO HARDWARE COMPLICATION.. Impression dictated by: Sotero Scott Jr., D.O.12/30/2024 1:24 PM Dictation Location: [facility]22 Venous Duplex 12/30/24 05:00 IMPRESSION: NO EVIDENCE FOR DEEP VEIN THROMBOSIS OR PROXIMAL SUPERFICIAL THROMBOPHLEBITIS INTHE RIGHT OR LEFT LOWER EXTREMITY. Impression dictated by: Dominik Lugo M.D.12/30/2024 12:28 PM Dictation Location: [place] [address] Any impression(s) listed above is documentation that was entered by the reading physician into a diagnostic report(s) for Delano Ren. I have reviewed the report(s) and am incorporating any findings in the treatment plan of this patient where applicable. A&P - Nephrology Assessment/Plan (1) Acute kidney injury superimposed on CKD: Assessment/Problem Details: He has a WICHO on CKD due to the relative hypotension and postoperative blood lossanemia creatinine function has improved. (2) Aspiration pneumonia: Assessment/Problem Details: Recovered, he is done with antibiotics (3) Stage 4 chronic kidney disease: Assessment/Problem Details: He has a CKD due to the longstanding DM and HTN with baseline creatinine 2.6-3 mg/dL. (4) Chronic HFrEF (heart failure with reduced ejection fraction): Assessment/Problem Details: Patient appears to be well compensated. (5) Femoral neck fracture: Assessment/Problem Details: He is s/p ORIF on 12/23/2024 (6) Hypertensive chronic kidney disease with stage 1 through stage 4 chronic kidney disease, or unspecified chronic kidney disease: Assessment/Problem Details: His blood pressure is controlled. Plan * Creatinine did improve from peak 3.7 however it is slightly up again to 3.2 mg/dL possibly related to drop of hemoglobin. He still off furosemide and losartan. Blood pressure is normal. Baseline creatinine variable between 2.5 to 3 mg/dL, patient has CKD stage IV and he follow-up with Dr. Syed in [place]. * Hemoglobin did drop down to 7.7 g/dL after restarting Eliquis 2.5 mg twice a day. Will recheck CBC tomorrow and if hemoglobin continues to drop, will hold Eliquis. Will transfuse if hemoglobin below 7 g/dL. Information about Watchman device was discussed with the patient and his . 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 device with his database management system specialist in [place] and stated that he is not required at this time. History of colon cancer s/p partial colectomy. No chemotherapy or radiation was given. Colon cancer was diagnosed in the setting of Streptococcus bovis infection. * Increase allopurinol to 100 mg twice a day as uric acid still elevated 10.6 g/dL. * Will continue hydralazine, Isordil and metoprolol. * Check renal function daily and monitor for output Documented By: Winsome Goff MD 12/30/24 1700 Signed By: <Electronically signed by MD Winsome Goff> 12/30/24 8666 [facility] Work Phone: [phone]) [phone] [facility]iology [facility] Work Phone: [phone]) 726-438603-16-2025 Progress note Author Zoie Field [facility] Note Date/Time December 29, 2024 4:4 8pm [facility] [address] [place] [address] Hospitalist Progress Note Signed Patient: Delano Ren MR#: [id number] : 1940 Acct:[id number] Age/Sex: 84 / M Adm Date: 5 Loc: Room: 7U1289-9 Type: ADM IN Attending Dr: Sotero Black MD Copies to: ~ Date of Service: 12/29/2024 Subjective Subjective Narrative: Patient seen and examined. Nursing reports patient endorsing significant foot pain, bilateral. Right foot with RLE edema, distal metatarsal pain and right hallux pain with some mild erythema no warmth- tender with sock removal. LLE noedema or erythema and minimal tender with sock removal. Spouse present, questions about follow up labs monitoring hemoglobin and also medications. Concerns addressed. Nursing reports that the pateint had difficulty bearing weight due to feet pain today. Exam Physical Exam Vital Signs: Temp Pulse Resp BP Pulse Ox O2 Del Method O2 Flow Rate 98.1 F 70 18 115/65 93 L Room Air 4 12/29/24 14:16 12/29/24 14:16 12/29/24 14:16 12/29/24 14:16 12/29/24 14:16 12/29/24 14:16 12/28/24 00:46 Narrative: CONST- alert, up on side of bed, elderly male CARDIAC- RRR no abnormal heart tones, pacer ICD present PULM- diminished without wheeze or rhonchi, RA, no accessory muscle use or coughnoted ABD- S/NT, NABS, round EXTREM- RLE 1+, LLE no edema. bilateral venous stasis and varicosities. Right wharf tender helper hallux and distal metatarsals, no warmth, mild erythema hallux, dorsal foot edema, painful right ankle ROM. Left foot no edema warmth or erythema however tender overall SKIN- W/D, good turgor, right dressing in place surgical site not seen Objective Lab Results 12/28/24 05:22 12/28/24 05:22 Meds Allergies and Active Meds Allergies simvastatin Allergy (Unknown, Verified 12/19/24 08:50) Unknown Reaction Lcdvnaz-SSH-NsF Reductase Inhibitor (Cglfowz-Ugb-Nnc Reductase Inhibitor) Allergy (Unknown, Verified 12/19/24 08:50) Muscle Pain tramadol Allergy (Verified 12/19/24 08:50) Itching niacin ER Allergy (Uncoded 08/22/24 08:31) itching Active Meds: Active Medications Generic Name Dose Route Start Last Admin Trade Name Freq PRN Reason Stop Dose Admin Acetaminophen 500 mg 12/27/24 14:23 Acetaminophen 500 Mg Tablet PO 12/27/25 14:22 Q4H PRN Pain Acetaminophen 1,000 mg 12/27/24 14:35 Acetaminophen 500 Mg Tablet PO 12/27/25 14:34 Q8HR PRN pain Al Hydrox/Mg Hydrox/Simethicone 30 ml 12/27/24 14:23 Mag Hydrox/Al Hydrox/Simeth 30 Ml Udc PO 12/27/25 14:22 Q4H PRN Indigestion Albuterol 2.5 mg 12/27/24 14:35 Albuterol Neb 2.5 Mg/3 Ml Vial.Neb INHALATION 12/27/25 14:34 Q2H PRN Shortness Of Breath Allopurinol 100 mg 12/28/24 09:00 12/29/24 09:31 Allopurinol 100 Mg Tablet PO 12/28/25 08:59 100 mg DAILY FERN Administration Amiodarone HCl 200 mg 12/28/24 09:00 12/29/24 09:30 Amiodarone 200 Mg Tablet PO 12/28/25 08:59 200 mg DAILY FERN Administration Amlodipine Besylate 10 mg 12/28/24 09:00 12/29/24 09:30 Amlodipine 10 Mg Tablet PO 12/28/25 08:59 10 mg DAILY FERN Administration Apixaban 2.5 mg 12/28/24 09:00 12/29/24 09:31 Apixaban 2.5 Mg Tablet PO 12/28/25 08:59 2.5 mg BID FERN Administration Ascorbic Acid 500 mg 12/28/24 09:00 12/29/24 09:31 Ascorbic Acid 500 Mg Tablet PO 12/28/25 08:59 500 mg DAILY FERN Administration Bisacodyl 10 mg 12/27/24 14:23 Bisacodyl 10 Mg Supp.Rect [place] 12/27/25 14:22 DAILY PRN Constipation Budesonide/Formoterol Fumarate 2 puff 12/28/24 09:00 12/29/24 05:58 Budesonide/Formoterol 160-4.5 Mcg 120 Puff/10.2 Gm Hfa.Aer.Ad INHALATION 12/28/25 08:59 Not Given BID FERN Calcium Carbonate 1 tab 12/27/24 17:00 12/29/24 12:12 Calcium Carbonate/Vitamin D3 500 Mg/200 Unit Tablet PO 12/27/25 16:59 1 tab TID.WITH.MEALS FERN Administration Docusate Sodium 100 mg 12/27/24 14:23 Docusate 100 Mg Capsule PO 12/27/25 14:22 BID PRN Constipation Docusate Sodium 283 mg 12/27/24 14:23 Docusate Enema 283 Mg/5 Ml Enema [place] 12/27/25 14:22 DAILY PRN Constipation Ezetimibe 10 mg 12/28/24 09:00 12/29/24 09:30 Ezetimibe 10 Mg Tablet PO 12/28/25 08:59 10 mg DAILY FERN Administration Hydralazine HCl 100 mg 12/27/24 22:00 12/29/24 09:30 Hydralazine 50 Mg Tablet PO 12/27/25 21:59 100 mg TID FERN Administration Ipratropium [place] 0.5 mg 12/27/24 20:00 12/29/24 12:15 Ipratropium [place] 0.5 Mg/2.5 Ml Vial.Neb INHALATION 12/27/25 19:59 Not Given QID.RESP FERN Isosorbide Dinitrate 10 mg 12/27/24 22:00 12/29/24 09:30 Isosorbide Dinitrate 10 Mg Tablet PO 12/27/25 21:59 10 mg TID FERN Administration Lactulose 30 gm 12/27/24 14:23 Lactulose 20 Gm/30 Ml Udc PO 12/27/25 14:22 DAILY PRN Constipation Metoprolol Succinate 100 mg 12/28/24 09:00 12/29/24 09:31 Metoprolol Succinate 100 Mg Tab.Er.24h PO 12/28/25 08:59 100 mg DAILY FERN Administration Oxycodone HCl 5 mg 12/27/24 14:35 12/28/24 20:25 Oxycodone Ir 5 Mg Tablet PO 5 mg Q4HR PRN Administration Pain Scale 4 - 7 Oxycodone HCl 10 mg 12/27/24 14:35 12/29/24 10:26 Oxycodone Ir 5 Mg Tablet PO 10 mg Q4HR PRN Administration Pain Scale 8 - 10 Polyethylene Glycol 17 gm 12/28/24 09:00 12/29/24 09:30 Polyethylene Glycol 3350 17 Gm Powd.Pack PO 12/28/25 08:59 17 gm DAILY FERN Administration Sennosides 17.2 mg 12/28/24 12:00 Sennosides 8.6 Mg Tablet PO 12/28/25 11:59 DAILY@12 PRN If no BM in 2 days Sodium Chloride 0 ml 12/27/24 14:23 Sodium Chloride 0.9 % 10 Ml Syringe IV-PUSH 12/27/25 14:22 PRN PRN Flush Sodium Chloride 10 ml 12/28/24 06:00 12/29/24 05:26 Sodium Chloride 0.9 % 10 Ml Syringe IV-PUSH 12/28/25 05:59 10 ml Q8H FERN Administration Vitamin D 125 mcg 12/28/24 09:00 12/29/24 09:30 Cholecalciferol 125 Mcg (5,000 Units) Capsule PO 12/28/25 08:59 125 mcg DAILY FERN Administration A&P - Hospitalist Assessment/Plan (1) Acute on chronic anemia: (2) Acute kidney injury superimposed on CKD: (3) Aspiration pneumonia: (4) Chronic HFrEF (heart failure with reduced ejection fraction): (5) Paroxysmal atrial fibrillation: (6) Nonischemic dilated cardiomyopathy: (7) Hypercholesteremia: (8) Femoral neck fracture: Plan Fall Right hip fracture s/p right hip hemiarthroplasty 12/23/2024 Postoperative anemia Aspiration pneumonia, resolved -Further plan of care per PMR team for rehabilitative therapy, pain control bowel regimen, DVT prophylaxis, surgical wound care -Patient completed antibiotic regimen December 28 -Preop hemoglobin 11.8, required 2 unit PRBC transfusion while in hospital, trend lab, transfuse to maintain hemoglobin > 8 -Defer postoperative questions or concerns to orthopedics team. Vitamin/mineraltherapy per Ortho preference WICHO on CKD 4 -Nephrology for further management -Holding on furosemide currently -Trend labs, baseline creatinine 2.6-3 mg/dL Gout -continues allopurinol -will give Colchicine 12/29 based on exam RLE edema -venous doppler r/o DVT, is on apixaban Chronic conditions 1. COPD?albuterol, budesonide/formoterol, ipratropium. Stable respiratory status no hypoxia 2. hyperlipidemia?ezetimibe 3. HFrEF, cardiomyopathy s/p ICD, atrial fibrillation chronic anticoagulation, hypertension?amiodarone, amlodipine, apixaban, hydralazine, isosorbide, metoprolol Documented By: Zoie Field APRN 12/14 04/09 1417 Signed By: <Electronically signed by EDWARD Field> 12/29/24 98[address] [facility] Work Phone: [phone]) [phone] Consult note Author Zoie Field [facility] Note Date/Time December 28, 2024 5:1 3pm [facility] [address] [place] [address] Hospitalist Consult Note Signed Patient: Delano Ren MR#: [id number] : 1940 Acct:[id number] Age/Sex: 84 / M Adm Date: 5 Loc: Room: 5R0990-9 Type: ADM IN Attending Dr: Sotero Black MD Copies to: DO Sotero Lauren MD Lynn A Stackhouse-Roby, APRN~ HPI DATE OF CONSULTATION: 12/28/24 REQUESTING PROVIDER: Sotero Black Consult Narrative Reason for Consult: COPD, CHF HPI: 84-year-old male with a past medical history significant for HFrEF EF 25%, hypertension, hyperlipidemia, PAF history ablation, chronic anticoagulation, dilated cardiomyopathy post AICD/pacemaker, CAD, COPD, pulmonary hypertension, MOLINA, diabetes, CKD 4, secondary hypothyroidism, hyperuricemia, colon cancer posthemicolectomy. Patient initially presented to [place] emergency department December 21 after sustaining a fall and subsequent right hip fracture. Transferred to [facility] for further management. Preoperative cardiac clearance obtained. Concern for pneumonia preop with fever and was initiated on antibiotic therapy. Orthopedics took the patient to the OR December 23 for right hip hemiarthroplasty. Postoperative anemia necessitated 2 unit PRBC transfusion, preop hemoglobin wasnoted to be 12.5. He also had stable kidney function throughout stay, furosemide was held on admission and administered IV hydration. Seen by nephrology as outpatient with ongoing diuresis. Seen by therapy services with recommendations for ongoing rehab subsequently discharged to the acute inpatientrehab unit December 27. Plan for resumption of apixaban December 28 after labs and dressing assessed. Recommendation for nephrology to follow ongoing while on rehab. Hospitalist team now on consult for management of heart failure and COPD. Patient seen and examined. Endorses postoperative right hip pain as anticipated. Denies chest pain or palpitations. No cough, dyspnea, or pain with inspiration. No abdominal pain or indigestion, constipation or diarrhea, nausea or vomiting. No dysuria or retention. No headache or dizziness. No fevers or chills. Review of Systems Review of Systems All other systems reviewed & are negative unless noted below or in HPI [facility] Medical History Former smoker quit at age ~44 COPD (chronic obstructive pulmonary disease) cpap use Screening PSA (prostate specific antigen) PSA: 0.91 - 07/2024 Chronic bronchitis, simple Chronic HFrEF (heart failure with reduced ejection fraction) Echo: LVEF 25%, RV reduced function, RVSP 61, SANJAY, mod MR - 02/2023 Type 2 diabetes mellitus with hyperglycemia Thyrotoxicosis Stage 4 chronic kidney disease Pulmonary hypertension Psoas abscess Primary hypertension Paroxysmal atrial fibrillation Ablation - 10/2019 Cardioversion - 10/2024 Obstructive sleep apnea Nonischemic dilated cardiomyopathy LHC: nonobstructive coronary disease - 2016 s/p ICD - 10/2019, BiV ICD - 05/2023 Lumbar spondylosis 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 Hypokalemia Hyperuricemia Hypertensive chronic kidney disease with stage 1 through stage 4 chronic kidney disease, or unspecified chronic kidney disease Hyperlipidemia type II Complete heart block Chronic venous insufficiency Hyperthyroidism Hyperlipidemia Chicken pox Arthritis Anemia Wears hearing aid in left ear Colon cancer Hemicolectomy 08/2021, Surveillance colonoscopy 07/2022 (repeat 2 years) Hypercholesteremia Coronary artery disease A-fib hx ablation Surgical History Hx of tonsillectomy Hx of cardiac catheterization (~2015) Biventricular ICD (implantable cardioverter-defibrillator) in place (~05/2023) H/O cardiac radiofrequency ablation H/O right hemicolectomy (~08/2021) H/O colonoscopy (~08/2024) 07/2022, 08/2024 w/ plan to repeat 2 years History of right heart catheterization (RHC) History of left knee replacement Pacemaker Family History Father CHF (congestive heart failure) Heart disease Mother Diabetes mellitus, type 2 Heart disease Brother Cancer Son Blackfan Glo anemia Social History Smoking Status: Former smoker Tobacco Type: cigarettes Substance Use Type: None Meds Medications and Allergies Allergies simvastatin Allergy (Unknown, Verified 12/19/24 08:50) Unknown Reaction Dgoktqm-KHE-LnA Reductase Inhibitor (Oxcbdpv-Zfv-Quz Reductase Inhibitor) Allergy (Unknown, Verified 12/19/24 08:50) Muscle Pain tramadol Allergy (Verified 12/19/24 08:50) Itching niacin ER Allergy (Uncoded 08/22/24 08:31) itching Home Medications hydralazine 100 mg tablet 100 mg PO TID 30 days #90 tabs 06/09/21 [Rx Confirmed 12/27/24] niacin 500 mg tablet 500 mg PO DAILY 30 days #30 tabs 06/09/21 [Rx Confirmed 12/27/24] amlodipine 10 mg tablet 10 mg PO DAILY 07/21/22 [History Confirmed 12/27/24] isosorbide dinitrate 10 mg tablet 10 mg PO TID 07/21/22 [History Confirmed 12/27/24] apixaban 2.5 mg tablet (Eliquis) 2.5 mg PO BID 03/03/23 [History Confirmed 12/27/24] blood sugar diagnostic (Contour Next Test Strips) 12/15/23 [History Confirmed 12/19/24] cholecalciferol (vitamin D3) 125 mcg (5,000 unit) tablet 5,000 unit PO DAILY 12/15/23 [History Confirmed 12/27/24] metoprolol succinate 100 mg tablet,extended release 24 hr 100 mg PO DAILY 12/15/23 [History Confirmed 12/27/24] furosemide 80 mg tablet 80 mg PO DAILY 30 days #30 tabs 12/18/23 [Rx Confirmed 12/27/24] fluticasone fur. 200 mcg-umeclid 62.5 mcg-vilant 25 mcg inhalat.powder (Trelegy Ellipta) 1 inh inhalation DAILY 90 days #90 ea 02/15/24 [Rx Confirmed 12/27/24] ezetimibe 10 mg tablet 10 mg PO DAILY 03/01/24 [History Confirmed 12/27/24] allopurinol 100 mg tablet 100 mg PO DAILY 90 days #90 tabs 06/05/24 [Rx Confirmed 12/27/24] acetaminophen 500 mg tablet (Acetaminophen Extra Strength) 1,000 mg PO Q8HR PRN pain 08/12/24 [History Confirmed 12/27/24] losartan 25 mg tablet 25 mg PO DAILY 08/12/24 [History Confirmed 12/21/24] potassium chloride 10 mEq tablet,extended release(part/cryst) See Rx Instructions .Route .COMPLEX #90 tabs 10/15/24 [Rx Confirmed 12/27/24] amiodarone 200 mg tablet 200 mg PO DAILY 11/08/24 [History Confirmed 12/27/24] albuterol sulfate 2.5 mg/3 mL (0.083 %) solution for nebulization 2.5 mg (3 mL) inhalation Q2H PRN Shortness Of Breath #90 mL 12/27/24 [Rx Confirmed 12/27/24] amoxicillin 500 mg-potassium clavulanate 125 mg tablet 1 tab PO BID 2 days #4 tabs 12/27/24 [Rx Confirmed 12/27/24] ascorbic acid (vitamin C) 500 mg tablet (Vitamin C) 500 mg PO DAILY #30 tabs 12/27/24 [Rx Confirmed 12/27/24] azithromycin 250 mg tablet 500 mg (2 x 250 mg) PO Q24H 2 days #4 tabs 12/27/24 [Rx Confirmed 12/27/24] calcium 500 mg (as carbonate)-vitamin D3 5 mcg (200 unit) tablet (Oyster Shell Calcium-Vitamin D3) 1 tab PO TID.WITH.MEALS #90 tabs 12/27/24 [Rx Confirmed 12/27/24] docusate sodium 100 mg capsule 100 mg PO BID #60 caps 12/27/24 [Rx Confirmed 12/27/24] multivitamin with folic acid 400 mcg tablet (Thera) 1 tab PO DAILY #30 tabs 12/27/24 [Rx Confirmed 12/27/24] oxycodone 5 mg tablet 5 mg PO Q4HR PRN Pain Scale 1 - 5 30 days #30 tabs 12/27/24 [Rx Confirmed 12/27/24] oxycodone 5 mg tablet 10 mg (2 x 5 mg) PO Q4HR PRN Pain Scale 6 - 10 30 days #30tabs 12/27/24 [Rx Confirmed 12/27/24] polyethylene glycol 3350 17 gram oral powder packet (HealthyLax) 17 g PO DAILY #30 ea 12/27/24 [Rx Confirmed 12/27/24] Active Medications: Active Medications Generic Name Dose Route Start Last Admin Trade Name Freq PRN Reason Stop Dose Admin Acetaminophen 500 mg 12/27/24 14:23 Acetaminophen 500 Mg Tablet PO 12/27/25 14:22 Q4H PRN Pain Acetaminophen 1,000 mg 12/27/24 14:35 Acetaminophen 500 Mg Tablet PO 12/27/25 14:34 Q8HR PRN pain Al Hydrox/Mg Hydrox/Simethicone 30 ml 12/27/24 14:23 Mag Hydrox/Al Hydrox/Simeth 30 Ml Udc PO 12/27/25 14:22 Q4H PRN Indigestion Albuterol 2.5 mg 12/27/24 14:35 Albuterol Neb 2.5 Mg/3 Ml Vial.Neb INHALATION 12/27/25 14:34 Q2H PRN Shortness Of Breath Allopurinol 100 mg 12/28/24 09:00 12/28/24 09:19 Allopurinol 100 Mg Tablet PO 12/28/25 08:59 100 mg DAILY FERN Administration Amiodarone HCl 200 mg 12/28/24 09:00 12/28/24 09:20 Amiodarone 200 Mg Tablet PO 12/28/25 08:59 200 mg DAILY FERN Administration Amlodipine Besylate 10 mg 12/28/24 09:00 12/28/24 09:20 Amlodipine 10 Mg Tablet PO 12/28/25 08:59 10 mg DAILY FERN Administration Apixaban 2.5 mg 12/28/24 09:00 12/28/24 09:19 Apixaban 2.5 Mg Tablet PO 12/28/25 08:59 2.5 mg BID FERN Administration Ascorbic Acid 500 mg 12/28/24 09:00 12/28/24 09:19 Ascorbic Acid 500 Mg Tablet PO 12/28/25 08:59 500 mg DAILY FERN Administration Bisacodyl 10 mg 12/27/24 14:23 Bisacodyl 10 Mg Supp.Rect [place] 12/27/25 14:22 DAILY PRN Constipation Budesonide/Formoterol Fumarate 2 puff 12/28/24 09:00 12/28/24 06:17 Budesonide/Formoterol 160-4.5 Mcg 120 Puff/10.2 Gm Hfa.Aer.Ad INHALATION 12/28/25 08:59 Not Given BID REPLACED BY [facility] Calcium Carbonate 1 tab 12/27/24 17:00 12/28/24 12:02 Calcium Carbonate/Vitamin D3 500 Mg/200 Unit Tablet PO 12/27/25 16:59 1 tab TID.WITH.MEALS REPLACED BY [facility] Administration Docusate Sodium 100 mg 12/27/24 14:23 Docusate 100 Mg Capsule PO 12/27/25 14:22 BID PRN Constipation Docusate Sodium 283 mg 12/27/24 14:23 Docusate Enema 283 Mg/5 Ml Enema [place] 12/27/25 14:22 DAILY PRN Constipation Ezetimibe 10 mg 12/28/24 09:00 12/28/24 09:20 Ezetimibe 10 Mg Tablet PO 12/28/25 08:59 10 mg DAILY FERN Administration Hydralazine HCl 100 mg 12/27/24 22:00 12/28/24 14:52 Hydralazine 50 Mg Tablet PO 12/27/25 21:59 100 mg TID FERN Administration Ipratropium [place] 0.5 mg 12/27/24 20:00 12/28/24 14:49 Ipratropium [place] 0.5 Mg/2.5 Ml Vial.Neb INHALATION 12/27/25 19:59 Not Given QID.RESP FERN Isosorbide Dinitrate 10 mg 12/27/24 22:00 12/28/24 14:52 Isosorbide Dinitrate 10 Mg Tablet PO 12/27/25 21:59 10 mg TID FERN Administration Lactulose 30 gm 12/27/24 14:23 Lactulose 20 Gm/30 Ml Udc PO 12/27/25 14:22 DAILY PRN Constipation Metoprolol Succinate 100 mg 12/28/24 09:00 12/28/24 09:20 Metoprolol Succinate 100 Mg Tab.Er.24h PO 12/28/25 08:59 100 mg DAILY FERN Administration Oxycodone HCl 5 mg 12/27/24 14:35 Oxycodone Ir 5 Mg Tablet PO Q4HR PRN Pain Scale 4 - 7 Oxycodone HCl 10 mg 12/27/24 14:35 12/28/24 07:25 Oxycodone Ir 5 Mg Tablet PO 10 mg Q4HR PRN Administration Pain Scale 8 - 10 Polyethylene Glycol 17 gm 12/28/24 09:00 12/28/24 09:20 Polyethylene Glycol 3350 17 Gm Powd.Pack PO 12/28/25 08:59 17 gm DAILY FERN Administration Sennosides 17.2 mg 12/28/24 12:00 Sennosides 8.6 Mg Tablet PO 12/28/25 11:59 DAILY@12 PRN If no BM in 2 days Sodium Chloride 0 ml 12/27/24 14:23 Sodium Chloride 0.9 % 10 Ml Syringe IV-PUSH 12/27/25 14:22 PRN PRN Flush Sodium Chloride 10 ml 12/28/24 06:00 12/28/24 14:52 Sodium Chloride 0.9 % 10 Ml Syringe IV-PUSH 12/28/25 05:59 10 ml Q8H FERN Administration Vitamin D 125 mcg 12/28/24 09:00 12/28/24 09:20 Cholecalciferol 125 Mcg (5,000 Units) Capsule PO 12/28/25 08:59 125 mcg DAILY FERN Administration Exam Physical Exam Vital Signs: Temp Pulse Resp BP Pulse Ox O2 Del Method O2 Flow Rate 98.3 F 71 18 117/61 97 Room Air 4 12/28/24 14:50 12/28/24 14:50 12/28/24 14:50 12/28/24 14:50 12/28/24 14:50 12/28/24 16:00 12/28/24 00:46 Narrative: CONST- alert, in bed, elderly male HEAD- normocephalic and atraumatic EENT- sclera nonicteric and conjunctiva nonerythemic, moist oral mucosa, pharynxnot visualized NECK- supple, no cervical lymphadenopathy CARDIAC- RRR no abnormal heart tones, pacer ICD present PULM- diminished without wheeze or rhonchi, RA, no accessory muscle use or coughnoted ABD- S/NT, NABS, round EXTREM- no edema BLE, calves nontender SKIN- W/D, good turgor, right dressing in place surgical site not seen MS- MAEx4 spontaneously with equal strength NEURO- A&Ox3, speech clear and tongue midline, equal facial symmetry PSYCH-mood and behavior appropriate Results - Hospitalist Consult Lab Results Labs: Laboratory Results - last 72 hr 12/28/24 05:22: Corrected WBC 7.7, Uncorrected WBC Count 7.7, RBC 2.56 L, Hgb 8.3 L, Hct 24.0 L, MCV 93.8, MCH 32.3, MCHC 34.5, RDW 15.4 H, Plt Count 178, MPV7.7, Neut % (Auto) N/A, Lymph % (Auto) N/A, Reagan % (Auto) N/A, Eos % (Auto) N/A,Baso % (Auto) N/A, Nucleat RBC Rel Count N/A, Neut # (Auto) N/A, Lymph # (Auto) N/A, Reagan # (Auto) N/A, Eos # (Auto) N/A, Baso # (Auto) N/A, Lymphocytes % 9 L, Monocytes % 7, Metamyelocytes % 1 H, Segmented Neutrophils 83 H, Platelet Estimate Normal, Plt Morphology Comment Normal, RBC Morphology N/A, Polychromasia Slight, Hypochromasia Slight, Anisocytosis Slight, PHA Creatinine Clear 22.60, Sodium 137, Potassium 3.9, Chloride 94 L, Carbon Dioxide 36.7 H, Anion Gap 10.2, BUN 87 H, Creatinine 2.96 H, Est GFR (CKD-EPI) 20.434, Glucose 135 H, Calcium 9.8, Total Bilirubin 0.7, AST 33, ALT 10, Alkaline Phosphatase 63, Total Protein 5.9 L, Albumin 3.1 L, Globulin 2.8, Albumin/Globulin Ratio 1.1, Prealbumin 13.6 L Assessment & Plan Assessment/Plan (1) Acute on chronic anemia: (2) Acute kidney injury superimposed on CKD: (3) Aspiration pneumonia: (4) Chronic HFrEF (heart failure with reduced ejection fraction): (5) Paroxysmal atrial fibrillation: (6) Nonischemic dilated cardiomyopathy: (7) Hypercholesteremia: (8) Femoral neck fracture: Plan Fall Right hip fracture s/p right hip hemiarthroplasty 12/23/2024 Postoperative anemia Aspiration pneumonia -Further plan of care per PMR team for rehabilitative therapy, pain control bowel regimen, DVT prophylaxis, surgical wound care -Patient completing antibiotic regimen December 28 -Preop hemoglobin 11.8, required 2 unit PRBC transfusion while in hospital, trend lab, transfuse to maintain hemoglobin > 8 -Defer postoperative questions or concerns to orthopedics team. Vitamin/mineraltherapy per Ortho preference WICHO on CKD 4 -Nephrology for further management -Holding on furosemide currently -Trend labs, baseline creatinine 2.6-3 mg/dL Chronic conditions 1. COPD?albuterol, budesonide/formoterol, ipratropium. Stable respiratory status no hypoxia 2. Hyperuricemia?allopurinol 3. HFrEF, cardiomyopathy s/p ICD, atrial fibrillation chronic anticoagulation, hypertension?amiodarone, amlodipine, apixaban, hydralazine, isosorbide, metoprolol 4. hyperlipidemia?ezetimibe Documented By: Zoie Field APRN 12/14 Signed By: <Electronically signed by EDWARD Field> 12/28/24 [id number] [facility] Work Phone: [phone] Progress note Author Zahida Flowers [facility] Note Date/Time December 28, 2024 2:4 4pm [facility] [address] [place], [place] [id number] Nephrology Progress Note Signed Patient: Delano Ren MR#: [id number] : 1940 Acct:[id number] Age/Sex: 84 / M Adm Date: 5 Loc: Room: 3Y6565-5 Type: ADM IN Attending Dr: Sotero Black MD Copies to: ~ Date of Service: 12/28/2024 Subjective Subjective Narrative: This is a 84 male with medical history of CKD, HTN, A-fib, HFrEF, DM, gout and HLD was initially admitted after mechanical fall for right hip fracture. He underwent surgery on December 23. His postoperative course was complicated by aspiration pneumonia and was started on IV antibiotic by the hospitalist. He also had acute on chronic anemia due to the possibly blood loss anemia and was transfused 2 unit of PRBC. He was also found to have WICHO on CKD in the setting of relative hypotension and blood loss anemia. His renal function improved withfluid resuscitation and blood transfusion. He was resumed on Lasix and had a good urine output. Patient is now moved to the inpatient rehab. Nephrology consulted for WICHO on CKD care during his rehab stay. Exam Physical Exam Vital Signs: Temp Pulse Resp BP Pulse Ox O2 Del Method O2 Flow Rate 98.7 F 73 18 122/85 95 Room Air 4 12/28/24 05:00 12/28/24 05:00 12/28/24 05:00 12/28/24 05:00 12/28/24 05:00 12/28/24 08:00 12/28/24 00:46 Narrative: General: Appears comfortable and not in distress Heart: S1-S2, no rub Lung: Bilateral air entry, no wheezing or crackles Abdomen: Soft, positive bowel sounds Extremities: No edema, no cyanosis Head: Atraumatic, normocephalic Ear: No gross hearing Deficit or external ear redness Eyes: No pallor or redness Neck: No JVD or visible mass Skin: No rashes , warm to touch [employer] INSPECTOR: Awake,Alert, following simple command Musculoskeletal: No swelling or limitation of movement of the large joints Psychiatric: Cooperative, normal mood and affect Objective Intake and Output I&O: Intake & Output 12/25/24 12/26/24 12/27/24 12/28/24 23:59 23:59 23:59 23:59 Intake Total 940 / 940 Output Total 550 / 550 1000 / 1000 Balance -550 / -550 -60 / -60 Weight 95.6 kg 94.7 kg Meds and Allergies Meds: Active Medications Acetaminophen (Acetaminophen 500 Mg Tablet) 500 mg PO Q4H PRN PRN Reason: Pain Stop: 12/27/25 14:22 Acetaminophen (Acetaminophen 500 Mg Tablet) 1,000 mg PO Q8HR PRN PRN Reason: pain Stop: 12/27/25 14:34 Al Hydrox/Mg Hydrox/Simethicone (Mag Hydrox/Al Hydrox/Simeth 30 Ml Udc) 30 ml PO Q4H PRN PRN Reason: Indigestion Stop: 12/27/25 14:22 Albuterol (Albuterol Neb 2.5 Mg/3 Ml Vial.Neb) 2.5 mg INHALATION Q2H PRN PRN Reason: Shortness Of Breath Stop: 12/27/25 14:34 Allopurinol (Allopurinol 100 Mg Tablet) 100 mg PO DAILY FERN Stop: 12/28/25 08:59 Last Admin: 12/28/24 09:19 Dose: 100 mg Amiodarone HCl (Amiodarone 200 Mg Tablet) 200 mg PO DAILY FERN Stop: 12/28/25 08:59 Last Admin: 12/28/24 09:20 Dose: 200 mg Amlodipine Besylate (Amlodipine 10 Mg Tablet) 10 mg PO DAILY FERN Stop: 12/28/25 08:59 Last Admin: 12/28/24 09:20 Dose: 10 mg Apixaban (Apixaban 2.5 Mg Tablet) 2.5 mg PO BID FERN Stop: 12/28/25 08:59 Last Admin: 12/28/24 09:19 Dose: 2.5 mg Ascorbic Acid (Ascorbic Acid 500 Mg Tablet) 500 mg PO DAILY FERN Stop: 12/28/25 08:59 Last Admin: 12/28/24 09:19 Dose: 500 mg Azithromycin (Azithromycin 250 Mg Tablet) 500 mg PO Q24H FERN Stop: 12/28/24 16:00 Last Admin: 12/27/24 16:14 Dose: 500 mg Bisacodyl (Bisacodyl 10 Mg Supp.Rect) 10 mg [place] DAILY PRN PRN Reason: Constipation Stop: 12/27/25 14:22 Budesonide/Formoterol Fumarate (Budesonide/Formoterol 160-4.5 Mcg 120 Puff/10.2 Gm Hfa.Aer.Ad) 2 puff INHALATION BID FERN Stop: 12/28/25 08:59 Last Admin: 12/28/24 06:17 Dose: Not Given Calcium Carbonate (Calcium Carbonate/Vitamin D3 500 Mg/200 Unit Tablet) 1 tab PO TID.WITH.MEALS REPLACED BY [facility] Stop: 12/27/25 16:59 Last Admin: 12/28/24 12:02 Dose: 1 tab Docusate Sodium (Docusate 100 Mg Capsule) 100 mg PO BID PRN PRN Reason: Constipation Stop: 12/27/25 14:22 Docusate Sodium (Docusate Enema 283 Mg/5 Ml Enema) 283 mg [place] DAILY PRN PRN Reason: Constipation Stop: 12/27/25 14:22 Ezetimibe (Ezetimibe 10 Mg Tablet) 10 mg PO DAILY REPLACED BY [facility] Stop: 12/28/25 08:59 Last Admin: 12/28/24 09:20 Dose: 10 mg Hydralazine HCl (Hydralazine 50 Mg Tablet) 100 mg PO TID REPLACED BY [facility] Stop: 12/27/25 21:59 Last Admin: 12/28/24 09:20 Dose: 100 mg Ipratropium [place] (Ipratropium [place] 0.5 Mg/2.5 Ml Vial.Neb) 0.5 mg INHALATION QID.RESP FERN Stop: 12/27/25 19:59 Last Admin: 12/28/24 11:40 Dose: Not Given Isosorbide Dinitrate (Isosorbide Dinitrate 10 Mg Tablet) 10 mg PO TID REPLACED BY [facility] Stop: 12/27/25 21:59 Last Admin: 12/28/24 09:23 Dose: 10 mg Lactulose (Lactulose 20 Gm/30 Ml Udc) 30 gm PO DAILY PRN PRN Reason: Constipation Stop: 12/27/25 14:22 Metoprolol Succinate (Metoprolol Succinate 100 Mg Tab.Er.24h) 100 mg PO DAILY REPLACED BY [facility] Stop: 12/28/25 08:59 Last Admin: 12/28/24 09:20 Dose: 100 mg Oxycodone HCl (Oxycodone Ir 5 Mg Tablet) 5 mg PO Q4HR PRN PRN Reason: Pain Scale 4 - 7 Oxycodone HCl (Oxycodone Ir 5 Mg Tablet) 10 mg PO Q4HR PRN PRN Reason: Pain Scale 8 - 10 Last Admin: 12/28/24 07:25 Dose: 10 mg Polyethylene Glycol (Polyethylene Glycol 3350 17 Gm Powd.Pack) 17 gm PO DAILY FERN Stop: 12/28/25 08:59 Last Admin: 12/28/24 09:20 Dose: 17 gm Sennosides (Sennosides 8.6 Mg Tablet) 17.2 mg PO DAILY@12 PRN PRN Reason: If no BM in 2 days Stop: 12/28/25 11:59 Sodium Chloride (Sodium Chloride 0.9 % 10 Ml Syringe) 0 ml IV-PUSH PRN PRN PRN Reason: Flush Stop: 12/27/25 14:22 Sodium Chloride (Sodium Chloride 0.9 % 10 Ml Syringe) 10 ml IV-PUSH Q8H FERN Stop: 12/28/25 05:59 Last Admin: 12/28/24 05:35 Dose: 10 ml Vitamin D (Cholecalciferol 125 Mcg (5,000 Units) Capsule) 125 mcg PO DAILY FERN Stop: 12/28/25 08:59 Last Admin: 12/28/24 09:20 Dose: 125 mcg Allergies simvastatin Allergy (Unknown, Verified 12/19/24 08:50) Unknown Reaction Lbwcibw-UCZ-JyF Reductase Inhibitor (Kmxjxqk-Lcb-Gtc Reductase Inhibitor) Allergy (Unknown, Verified 12/19/24 08:50) Muscle Pain tramadol Allergy (Verified 12/19/24 08:50) Itching niacin ER Allergy (Uncoded 08/22/24 08:31) itching Results - Nephrology Labs 12/28/24 05:22 12/28/24 05:22 Labs: 12/28/24 05:22 BUN 87 H Creatinine 2.96 H Albumin 3.1 L Radiology Impressions Impressions - last 24 hours: Any impression(s) listed above is documentation that was entered by the reading physician into a diagnostic report(s) for Delano Ren. I have reviewed the report(s) and am incorporating any findings in the treatment plan of this patient where applicable. A&P - Nephrology Assessment/Plan (1) Acute kidney injury superimposed on CKD: Assessment/Problem Details: He has a WICHO on CKD due to the relative hypotension and postoperative blood lossanemia creatinine function has improved. (2) Aspiration pneumonia: Assessment/Problem Details: Patient has aspiration pneumonia and currently on oral antibiotic. (3) Stage 4 chronic kidney disease: Assessment/Problem Details: He has a CKD due to the longstanding DM and HTN with baseline creatinine 2.6-3 mg/dL. (4) Chronic HFrEF (heart failure with reduced ejection fraction): Assessment/Problem Details: Patient appears to be well compensated. (5) Femoral neck fracture: Assessment/Problem Details: He is s/p ORIF. (6) Hypertensive chronic kidney disease with stage 1 through stage 4 chronic kidney disease, or unspecified chronic kidney disease: Assessment/Problem Details: His blood pressure is controlled. Is making adequate output. Plan * Will continue to hold home dose of Lasix now. But will resume it if he started having a leg swelling or hypoxia. * Continue antibiotics for pneumonia as per the primary team. * Will continue hydralazine, Isordil and metoprolol. * Monitor H&H and transfuse as needed to keep the hemoglobin greater than 8 g/dL. * Check renal function daily and monitor for output Documented By: Zahida Flowers MD 12/28/24 1431 Signed By: <Electronically signed by Zahida Flowers MD> 12/28/24 [address] [facility] Work Phone: [phone] History and physical note Author Sotero Black [facility] Note Date/Time December 28, 2024 12: 40pm [facility] [address] [place] [address] Physiatry (Rehab) H&P Signed Patient: Delano Ren MR#: [id number] : 1940 Acct:[id number] Age/Sex: 84 / M Adm Date: 5 Loc: Room: [address] [place] [address] Type: ADM IN Attending Dr: Sotero Black MD Copies to: Yas Linda,DO Sotero Black MD~ Date of Service: 12/28/2024 HPI The patient was seen and examined on: 12/28/24 Etiologic Diagnosis/Impairment Group: [id number] Chief complaint: Pain, loss of function History of Present Illness: Mr. Ren is a 84 year old male with multiple complex medical comorbidities as below including nonischemic cardiomyopathy with reduced ejection fraction and ICD/defibrillator in place, anticoagulated with Eliquis, chronic renal failure, likely underlying COPD, and others presenting with right femoral neck fracture after a fall, status post hemiarthroplasty December 24. Postop course notable for acute on chronic renal failure and hypoxemic respiratory failure, multifactorial, completed treatment for aspiration pneumonia. He did require transfusion for postoperative anemia. He is cleared to resume ittoday. [facility] Medical History Former smoker quit at age ~44 COPD (chronic obstructive pulmonary disease) cpap use Screening PSA (prostate specific antigen) PSA: 0.91 - 07/2024 Chronic bronchitis, simple Chronic HFrEF (heart failure with reduced ejection fraction) Echo: LVEF 25%, RV reduced function, RVSP 61, SANJAY, mod MR - 02/2023 Type 2 diabetes mellitus with hyperglycemia Thyrotoxicosis Stage 4 chronic kidney disease Pulmonary hypertension Psoas abscess Primary hypertension Paroxysmal atrial fibrillation Ablation - 10/2019 Cardioversion - 10/2024 Obstructive sleep apnea Nonischemic dilated cardiomyopathy LHC: nonobstructive coronary disease - 2015 s/p ICD - 10/2019, BiV ICD - 05/2023 Lumbar spondylosis 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 Hypokalemia Hyperuricemia Hypertensive chronic kidney disease with stage 1 through stage 4 chronic kidney disease, or unspecified chronic kidney disease Hyperlipidemia type II Complete heart block Chronic venous insufficiency Hyperthyroidism Hyperlipidemia Chicken pox Arthritis Anemia Wears hearing aid in left ear Colon cancer Hemicolectomy 08/2021, Surveillance colonoscopy 07/2022 (repeat 2 years) Hypercholesteremia Coronary artery disease A-fib hx ablation Surgical History Hx of tonsillectomy Hx of cardiac catheterization (~2015) Biventricular ICD (implantable cardioverter-defibrillator) in place (~05/2023) H/O cardiac radiofrequency ablation H/O right hemicolectomy (~08/2021) H/O colonoscopy (~08/2024) 07/2022, 08/2024 w/ plan to repeat 2 years History of right heart catheterization (RHC) History of left knee replacement Pacemaker Family History Father CHF (congestive heart failure) Heart disease Mother Diabetes mellitus, type 2 Heart disease Brother Cancer Son Blackfan Glo anemia Social History Smoking Status: Former smoker Tobacco Type: cigarettes Substance Use Type: None Review of Systems Review of Systems All other systems reviewed & are negative unless noted below or in HPI Meds Medications and Allergies Allergies simvastatin Allergy (Unknown, Verified 12/19/24 08:50) Unknown Reaction Pkimqes-EAE-PdK Reductase Inhibitor (Arwcpgp-Xxu-Amq Reductase Inhibitor) Allergy (Unknown, Verified 12/19/24 08:50) Muscle Pain tramadol Allergy (Verified 12/19/24 08:50) Itching niacin ER Allergy (Uncoded 08/22/24 08:31) itching Home and Active Meds: Home Medications hydralazine 100 mg tablet 100 mg PO TID 30 days #90 tabs 06/09/21 [Rx Confirmed 12/27/24] niacin 500 mg tablet 500 mg PO DAILY 30 days #30 tabs 06/09/21 [Rx Confirmed 12/27/24] amlodipine 10 mg tablet 10 mg PO DAILY 07/21/22 [History Confirmed 12/27/24] isosorbide dinitrate 10 mg tablet 10 mg PO TID 07/21/22 [History Confirmed 12/27/24] apixaban 2.5 mg tablet (Eliquis) 2.5 mg PO BID 03/03/23 [History Confirmed 12/27/24] blood sugar diagnostic (Contour Next Test Strips) 12/15/23 [History Confirmed 12/19/24] cholecalciferol (vitamin D3) 125 mcg (5,000 unit) tablet 5,000 unit PO DAILY 12/15/23 [History Confirmed 12/27/24] metoprolol succinate 100 mg tablet,extended release 24 hr 100 mg PO DAILY 12/15/23 [History Confirmed 12/27/24] furosemide 80 mg tablet 80 mg PO DAILY 30 days #30 tabs 12/18/23 [Rx Confirmed 12/27/24] fluticasone fur. 200 mcg-umeclid 62.5 mcg-vilant 25 mcg inhalat.powder (Trelegy Ellipta) 1 inh inhalation DAILY 90 days #90 ea 02/15/24 [Rx Confirmed 12/27/24] ezetimibe 10 mg tablet 10 mg PO DAILY 03/01/24 [History Confirmed 12/27/24] allopurinol 100 mg tablet 100 mg PO DAILY 90 days #90 tabs 06/05/24 [Rx Confirmed 12/27/24] acetaminophen 500 mg tablet (Acetaminophen Extra Strength) 1,000 mg PO Q8HR PRN pain 08/12/24 [History Confirmed 12/27/24] losartan 25 mg tablet 25 mg PO DAILY 08/12/24 [History Confirmed 12/21/24] potassium chloride 10 mEq tablet,extended release(part/cryst) See Rx Instructions .Route .COMPLEX #90 tabs 10/15/24 [Rx Confirmed 12/27/24] amiodarone 200 mg tablet 200 mg PO DAILY 11/08/24 [History Confirmed 12/27/24] albuterol sulfate 2.5 mg/3 mL (0.083 %) solution for nebulization 2.5 mg (3 mL) inhalation Q2H PRN Shortness Of Breath #90 mL 12/27/24 [Rx Confirmed 12/27/24] amoxicillin 500 mg-potassium clavulanate 125 mg tablet 1 tab PO BID 2 days #4 tabs 12/27/24 [Rx Confirmed 12/27/24] ascorbic acid (vitamin C) 500 mg tablet (Vitamin C) 500 mg PO DAILY #30 tabs 12/27/24 [Rx Confirmed 12/27/24] azithromycin 250 mg tablet 500 mg (2 x 250 mg) PO Q24H 2 days #4 tabs 12/27/24 [Rx Confirmed 12/27/24] calcium 500 mg (as carbonate)-vitamin D3 5 mcg (200 unit) tablet (Oyster Shell Calcium-Vitamin D3) 1 tab PO TID.WITH.MEALS #90 tabs 12/27/24 [Rx Confirmed 12/27/24] docusate sodium 100 mg capsule 100 mg PO BID #60 caps 12/27/24 [Rx Confirmed 12/27/24] multivitamin with folic acid 400 mcg tablet (Thera) 1 tab PO DAILY #30 tabs 12/27/24 [Rx Confirmed 12/27/24] oxycodone 5 mg tablet 5 mg PO Q4HR PRN Pain Scale 1 - 5 30 days #30 tabs 12/27/24 [Rx Confirmed 12/27/24] oxycodone 5 mg tablet 10 mg (2 x 5 mg) PO Q4HR PRN Pain Scale 6 - 10 30 days #30tabs 12/27/24 [Rx Confirmed 12/27/24] polyethylene glycol 3350 17 gram oral powder packet (HealthyLax) 17 g PO DAILY #30 ea 12/27/24 [Rx Confirmed 12/27/24] Active Medications Acetaminophen (Acetaminophen 500 Mg Tablet) 500 mg PO Q4H PRN PRN Reason: Pain Stop: 12/27/25 14:22 Acetaminophen (Acetaminophen 500 Mg Tablet) 1,000 mg PO Q8HR PRN PRN Reason: pain Stop: 12/27/25 14:34 Al Hydrox/Mg Hydrox/Simethicone (Mag Hydrox/Al Hydrox/Simeth 30 Ml Udc) 30 ml PO Q4H PRN PRN Reason: Indigestion Stop: 12/27/25 14:22 Albuterol (Albuterol Neb 2.5 Mg/3 Ml Vial.Neb) 2.5 mg INHALATION Q2H PRN PRN Reason: Shortness Of Breath Stop: 12/27/25 14:34 Allopurinol (Allopurinol 100 Mg Tablet) 100 mg PO DAILY FERN Stop: 12/28/25 08:59 Amiodarone HCl (Amiodarone 200 Mg Tablet) 200 mg PO DAILY FERN Stop: 12/28/25 08:59 Amlodipine Besylate (Amlodipine 10 Mg Tablet) 10 mg PO DAILY FERN Stop: 12/28/25 08:59 Amoxicillin/Clavulanate Potassium (Amoxicillin/Clav 500-125 Mg Tablet) 1 tab POBID FERN Stop: 12/28/24 09:00 Apixaban (Apixaban 2.5 Mg Tablet) 2.5 mg PO BID FERN Stop: 12/28/25 08:59 Ascorbic Acid (Ascorbic Acid 500 Mg Tablet) 500 mg PO DAILY FERN Stop: 12/28/25 08:59 Azithromycin (Azithromycin 250 Mg Tablet) 500 mg PO Q24H FERN Stop: 12/28/24 16:00 Last Admin: 12/27/24 16:14 Dose: 500 mg Bisacodyl (Bisacodyl 10 Mg Supp.Rect) 10 mg [place] DAILY PRN PRN Reason: Constipation Stop: 12/27/25 14:22 Budesonide/Formoterol Fumarate (Budesonide/Formoterol 160-4.5 Mcg 120 Puff/10.2 Gm Hfa.Aer.Ad) 2 puff INHALATION BID FERN Stop: 12/28/25 08:59 Calcium Carbonate (Calcium Carbonate/Vitamin D3 500 Mg/200 Unit Tablet) 1 tab PO TID.WITH.MEALS FERN Stop: 12/27/25 16:59 Last Admin: 12/27/24 16:14 Dose: 1 tab Docusate Sodium (Docusate 100 Mg Capsule) 100 mg PO BID PRN PRN Reason: Constipation Stop: 12/27/25 14:22 Docusate Sodium (Docusate Enema 283 Mg/5 Ml Enema) 283 mg [place] DAILY PRN PRN Reason: Constipation Stop: 12/27/25 14:22 Ezetimibe (Ezetimibe 10 Mg Tablet) 10 mg PO DAILY REPLACED BY [facility] Stop: 12/28/25 08:59 Hydralazine HCl (Hydralazine 50 Mg Tablet) 100 mg PO TID REPLACED BY [facility] Stop: 12/27/25 21:59 Ipratropium [place] (Ipratropium [place] 0.5 Mg/2.5 Ml Vial.Neb) 0.5 mg INHALATION QID.RESP FERN Stop: 12/27/25 19:59 Isosorbide Dinitrate (Isosorbide Dinitrate 10 Mg Tablet) 10 mg PO TID REPLACED BY [facility] Stop: 12/27/25 21:59 Lactulose (Lactulose 20 Gm/30 Ml Udc) 30 gm PO DAILY PRN PRN Reason: Constipation Stop: 12/27/25 14:22 Metoprolol Succinate (Metoprolol Succinate 100 Mg Tab.Er.24h) 100 mg PO DAILY REPLACED BY [facility] Stop: 12/28/25 08:59 Oxycodone HCl (Oxycodone Ir 5 Mg Tablet) 5 mg PO Q4HR PRN PRN Reason: Pain Scale 4 - 7 Oxycodone HCl (Oxycodone Ir 5 Mg Tablet) 10 mg PO Q4HR PRN PRN Reason: Pain Scale 8 - 10 Polyethylene Glycol (Polyethylene Glycol 3350 17 Gm Powd.Pack) 17 gm PO DAILY REPLACED BY [facility] Stop: 12/28/25 08:59 Sennosides (Sennosides 8.6 Mg Tablet) 17.2 mg PO DAILY@12 PRN PRN Reason: If no BM in 2 days Stop: 12/28/25 11:59 Sodium Chloride (Sodium Chloride 0.9 % 10 Ml Syringe) 0 ml IV-PUSH PRN PRN PRN Reason: Flush Stop: 12/27/25 14:22 Vitamin D (Cholecalciferol 125 Mcg (5,000 Units) Capsule) 125 mcg PO DAILY REPLACED BY [facility] Stop: 12/28/25 08:59 Exam Physical Exam Vital Signs: Temp Pulse Resp BP Pulse Ox O2 Del Method O2 Flow Rate 98.4 F 75 20 156/73 H 99 Nasal Cannula 4 12/27/24 16:12 12/27/24 16:48 12/27/24 16:48 12/27/24 16:12 12/27/24 16:12 12/27/24 16:46 12/27/24 16:46 Narrative: Pleasant No acute distress Nonlabored breathing Awake and alert. Oriented x 3. Right lower extremity exam limited by pain, fair strength throughout 1+ right lower extremity edema Results - Phys. Rehab Additional Results Results Comment: I reviewed clinical lab tests, radiology reports and obtained and summated medical records and have ordered follow up lab tests and imaging studies as needed for rehabilitation care. Individualized Plan of Care Individualized Plan of Care Plan of Care: Individualized Overall Plan of Care: Admit Date/Time: December 27, 2024 Expected LOS: 14 days Expected Discharge Destination: Home Rehabilitation [facility]: 05.26 Primary Diagnosis: as above Patient?s/Family?s anticipated outcomes/personal goals: To have patient become more independent and to return home. Medical/ Functional Prognosis: Good Anticipated Functional Outcomes/Goals and Interventions: -Therapy Functional Outcome/Goal: Mobility/Locomotion: Patient likely to be independent with ambulation with assistive device. Anticipated interventions: Physician management, PT, OT, Dietitian, Rehab Nursing - Therapy Functional Outcome/Goal: Self Care: Patient likely to be functionally independent for activities of daily living using assistive / adaptive equipment as needed. Anticipated interventions: Physician management, PT, OT, Dietitian, Rehab Nursing - Therapy Functional Outcome/Goal: Bladder/Bowel Management: Patient likely to be independent with bladder care and independent with bowel care. Anticipated interventions: Physician management, PT, OT, Dietitian, Rehab Nursing -Therapy Functional Outcome/Goal: Communication/Cognition: Patient will be able to communicate fully and be safe cognitively. Anticipated interventions: Physician management, PT, OT, Dietitian, Rehab Nursing -Therapy Functional Outcome/Goal: Patient will be independent for bed mobility and transfers Anticipated interventions: Physician management, PT, OT, Dietitian, Rehab Nursing -Therapy Functional Outcome/Goal: Patient will improve endurance to be able to tolerate all daily self care activities and avocational activities. Anticipated interventions: Physician management, PT, OT, Nutrition, Rehab Nursing -Therapy Functional Outcome/Goal: Patient will understand and assimilate / integrate education regarding management of their medical conditions to maintainhealth and wellbeing. Anticipated interventions: Physician management, PT, OT, Dietitian, Rehab Nursing Required Therapy PT: 1.5 hour per day at least 5 days per week with additional therapy on as needed basis. Comments: PT to improve pt's strength, endurance, bed mobility, transfers (sit-stand), standing balance, gait quality on level surfaces and stairs, coordination and functional ADL skills. Will also work to improve pt's safety awareness during transfers and ambulation. OT: 1.5 hour per day at least 5 days per week with additional therapy on as needed basis. Comments: OT for basic ADL re-training (bathing, dressing, toileting, continence, grooming, feeding, transferring), to increase activity tolerance andfunctional mobility and to evaluate for adaptive and assistive devices. Will work to improve pt's endurance and educate pt on fall prevention and energy conservation techniques-pacing strategies and proper breathing techniques duringfunctional tasks. Other: Nutrition, Rehab nursing, Wound, P&O RATIONALE FOR IRF ADMISSION: Patient has both medical and functional complexities that require 24 hour daily monitoring and intervention from Film Sound Coordinator as well as other consulting physicians including internal medicine as well as 24 hour daily tobacco sprayer nursing - for medical safe / optimal management. Patient requires interdisciplinary therapy team rehabilitation care including OT, PT, SW, Rehab Nursing, requires and can tolerate at least 3 hoursof daily OT and PT therapy at least 5 days weekly. The following medical conditions significantly impact the rehabilitation process and are being addressed daily and can not be managed at home or in a lesser intense medical setting: Refer to above problem oriented plan of care Assessment/Plan (1) Femoral neck fracture: Plan: PT to improve pt's strength, endurance, bed mobility, transfers (sit-stand), standing balance, gait quality on level surfaces and stairs, coordination and functional ADL skills. Will also work to improve pt's safety awareness during transfers and ambulation. OT for basic ADL re-training (bathing, dressing, toileting, continence, grooming, feeding, transferring), to increase activity tolerance and functional mobility and to evaluate for adaptive and assistive devices. Will work to improve pt's endurance and educate pt on fall prevention and energy conservationtechniques-pacing strategies and proper breathing techniques during functional tasks. Patient education Pressure ulcer prophylaxis; encourage mobilization, frequent postural changes, pressure-relief techniques DVT prophylaxis Encourage deep breathing exercise incentive spirometry. Monitor bladder. Toileting schedule. Continue current bladder management, with scans as needed and CIC if needed. Start bowel care program every day to obtain continence, prevent ileus. Maintain fall precautions Gait and balance retraining Provision of the necessary gait aids and functional adaptive equipment to enhance the patient's a functional protestant Encourage deep breathing exercises and incentive spirometry RD evaluation Ensure adequate nutrition and hydration Discharge planning. (2) Acute on chronic anemia: (3) Acute kidney injury superimposed on CKD: (4) Mucopurulent chronic bronchitis: (5) Malignant neoplasm of right colon: (6) Iron deficiency anemia: (7) Impaired mobility and activities of daily living: (8) Chronic HFrEF (heart failure with reduced ejection fraction): (9) Type 2 diabetes mellitus with hyperglycemia: Qualifiers: Diabetes mellitus mcc insulin use: without middle or intermediate school principal use Qualified Code(s): E11.65 - Type 2 diabetes mellitus with hyperglycemia (10) Stage 4 chronic kidney disease: (11) A-fib: (12) Coronary artery disease: (13) Aspiration pneumonia: Plan Mr. Ren is a 84 year old male with multiple complex medical comorbidities as below including nonischemic cardiomyopathy with reduced ejection fraction and ICD/defibrillator in place, anticoagulated with Eliquis, chronic renal failure, likely underlying COPD, and others presenting with right femoral neck fracture after a fall, status post hemiarthroplasty December 24. ?Hemoglobin stable. Okay to resume Eliquis. Monitor. He did require PRBCs postop -Nephrology consult for renal failure postop and diuretic management -Monitor for recurrent fever, did complete antibiotics for aspiration pneumonia -Therapy as ordered -Family instruction in the next week. -Will discuss CODE STATUS. Hospitalist to assist with management of comorbid medical conditions Pain control: Limit opioids. Wean as tolerated. Bowel and bladder:. Maintain bowel regimen. Monitor urine output. Skin: Maintain operative site, turn in position for offloading and pressure ulcer prevention Sleep: Optimize sleep-wake cycle DVT prophylaxis: Resume home Eliquis. Functional status: See therapy notes. With aspiration, have speech therapy screened patient for dysphagia Discharge planning:. Home in 2 weeks. I completed a substantive portion of this encounter, the medical decision makingportion of this note in its entirety, including Allied health note review, nursing note review, furniture sales consultant note review, discussion with nursing and case management, and more than 50% of my time was spent on counseling and coordination of care, time spent 65 minutes Patient was personally seen by me, Dr. Black, on the day of encounter, within 24hours of rehab admission, reviewed the history and the relevant portions of the chart, including current orders, allied health and furniture sales consultant notes, labs/imaging and performed mckenna elements of exam and I formulated the plan of care and facilitated the medical decision making. Documented By: Sotero Black MD 12/27/24 5522 Signed By: <Electronically signed by Sotero Black MD> 12/28/24 12[address] [facility] Work Phone: 1([phone]) 202-251803-13-2025 Progress note Author Emile Reynolds [facility] Note Date/Time December 26, 2024 1:3 1pm [facility] [address] [place] [address] Hospitalist Progress Note Signed Patient: Delano Ren MR#: [id number] : 1940 Acct:[id number] Age/Sex: 84 / M Adm Date: 5 Loc: Room: 8B5620-3 Type: ADM IN Attending Dr: Emile Reynolds DO Copies to: ~ Date of Service: 12/26/2024 Subjective Subjective Narrative: seem and evaluated, he is sitting up in the chair. He did have some bleeding on his bandage overnight. He understands he needs to participate more with therapy in order to be strong enough for a good chance with inpatient rehab. He is stillon NC. Does have some wheezing this AM which is new for him. Exam Physical Exam Vital Signs: Temp Pulse Resp BP Pulse Ox O2 Del Method O2 Flow Rate 98.2 F 78 16 153/71 H 95 Nasal Cannula 3 12/26/24 13:02 12/26/24 13:02 12/26/24 13:02 12/26/24 13:02 12/26/24 13:02 12/26/24 13:02 12/26/24 13:02 FiO2 40 12/24/24 03:09 Narrative: General: Awake alert, no acute distress HEENT: head atraumatic, normocephalic, moist mucous membranes Neck: supple no masses, no lymphadenopathy CVS: regular rate and rhythm, no murmurs or gallops Respiratory: clear to auscultation bilaterally, no wheezing or crackles, symmetric expansion GI: soft, nondistended, nontender, positive bowel sounds with no organomegaly Extremity: moves all extremities, no restrictions of movements, no calf tenderness, no edema. Right hip dressing does have some saturated blood noted is not soaking through the dressing. Neuro: AOx3, CN II-VII intact. Moves all extremities in all planes of motion. Skin: dry, intact no rashes or lesions Objective Lab Results 12/26/24 04:59 12/26/24 04:59 Meds Allergies and Active Meds Allergies simvastatin Allergy (Unknown, Verified 12/19/24 08:50) Unknown Reaction [id number] Reductase Inhibitor (Vfbgdby-Pzx-Ldf Reductase Inhibitor) Allergy (Unknown, Verified 12/19/24 08:50) Muscle Pain tramadol Allergy (Verified 12/19/24 08:50) Itching niacin ER Allergy (Uncoded 08/22/24 08:31) itching Active Meds: Active Medications Generic Name Dose Route Start Last Admin Trade Name Freq PRN Reason Stop Dose Admin Acetaminophen 650 mg 12/21/24 22:30 12/23/24 07:59 Acetaminophen 325 Mg Tablet PO 12/21/25 22:29 650 mg Q4H PRN Administration Pain Scale 1 - 5 Acetaminophen 1,000 mg 12/22/24 11:12 12/25/24 18:55 Acetaminophen 500 Mg Tablet PO 12/22/25 11:11 1,000 mg Q8H PRN Administration Fever or Pain Albuterol 2.5 mg 12/21/24 22:30 Albuterol Neb 2.5 Mg/3 Ml Vial.Neb INHALATION 12/21/25 22:29 Q2H PRN Shortness Of Breath Allopurinol 100 mg 12/22/24 09:00 12/26/24 08:10 Allopurinol 100 Mg Tablet PO 12/22/25 08:59 100 mg DAILY FERN Administration Amiodarone HCl 200 mg 12/22/24 09:00 12/26/24 08:11 Amiodarone 200 Mg Tablet PO 12/22/25 08:59 200 mg DAILY FERN Administration Amlodipine Besylate 10 mg 12/22/24 09:00 12/24/24 08:38 Amlodipine 10 Mg Tablet PO 12/22/25 08:59 Not Given DAILY FERN Amoxicillin/Clavulanate Potassium 1 tab 12/24/24 21:00 12/26/24 08:11 Amoxicillin/Clav 500-125 Mg Tablet PO 12/28/24 20:59 1 tab BID FERN Administration Ascorbic Acid 500 mg 12/23/24 09:00 12/26/24 08:11 Ascorbic Acid 500 Mg Tablet PO 12/23/25 08:59 500 mg DAILY FERN Administration Azithromycin 500 mg 12/24/24 16:00 12/25/24 16:38 Azithromycin 250 Mg Tablet PO 12/28/24 23:00 500 mg Q24H FERN Administration Calcium Carbonate 1 tab 12/22/24 12:00 12/26/24 11:21 Calcium Carbonate/Vitamin D3 500 Mg/200 Unit Tablet PO 12/22/25 11:59 1 tab TID.WITH.MEALS FERN Administration Diphenhydramine HCl 25 mg 12/23/24 13:13 Diphenhydramine 25 Mg Capsule PO 12/23/25 13:12 Q6H PRN Itching Docusate Sodium 200 mg 12/21/24 22:30 Docusate 100 Mg Capsule PO 12/21/25 22:29 BID PRN Constipation Docusate Sodium 100 mg 12/23/24 21:00 12/26/24 08:10 Docusate 100 Mg Capsule PO 12/23/25 20:59 100 mg BID FERN Administration Fluticasone/Umeclidinium/Vilanterol 1 puff 12/23/24 09:00 12/26/24 10:38 Fluticas/Umeclidin/Vilanter 200-62.5-25 Mcg 28 Puff Inhaler *Nf* INHALATION 12/23/25 08:59 1 puff DAILY FERN Administration Furosemide 80 mg 12/25/24 10:15 12/26/24 08:11 Furosemide 80 Mg Tablet PO 12/25/25 10:14 80 mg DAILY FERN Administration Hydralazine HCl 10 mg 12/21/24 22:30 Hydralazine 20 Mg/Ml Vial IV-PUSH 12/21/25 22:29 Q4H PRN if SBP > 185 Hydralazine HCl 100 mg 12/22/24 09:00 12/26/24 08:12 Hydralazine 50 Mg Tablet PO 12/22/25 08:59 100 mg TID FERN Administration Hydromorphone HCl 0.25 mg 12/21/24 22:30 12/22/24 09:42 Hydromorphone 1 Mg/Ml Syringe IV-PUSH 0.25 mg Q4H PRN Administration pain Hydromorphone HCl 0.5 mg 12/22/24 11:12 12/23/24 08:45 Hydromorphone 0.5 Mg/0.5 Ml Syringe IV-PUSH 0.5 mg Q2H PRN Administration Pain Scale 1 - 3 Hydromorphone HCl 1 mg 12/22/24 11:12 Hydromorphone 1 Mg/Ml Syringe IV-PUSH Q2H PRN Pain Scale 4 - 6 Sodium Chloride 100 mls @ 20 mls/hr 12/26/24 08:25 0.9% Sodium Chloride 100 Ml IV 12/27/24 08:24 PROTOCOL PRN BLOOD TRANSFUSION Isosorbide Dinitrate 10 mg 12/22/24 09:00 12/26/24 08:11 Isosorbide Dinitrate 10 Mg Tablet PO 12/22/25 08:59 10 mg TID FERN Administration Lidocaine HCl 0.1 ml 12/23/24 08:00 Lidocaine 1% 50 Ml Vial INTRADERMA PREOP PRN Venipuncture x 1 Dose Magnesium Hydroxide 30 ml 12/22/24 11:12 Magnesium Hydroxide Susp 30 Ml Udc PO 12/22/25 11:11 DAILY PRN Constipation Metoprolol Succinate 100 mg 12/22/24 09:00 12/26/24 08:11 Metoprolol Succinate 100 Mg Tab.Er.24h PO 12/22/25 08:59 100 mg DAILY FERN Administration Multivitamins 1 tab 12/23/24 09:00 12/26/24 08:10 Multivitamin 1 Tab Tablet PO 12/23/25 08:59 1 tab DAILY FERN Administration Ondansetron HCl 4 mg 12/22/24 11:12 12/23/24 08:58 Ondansetron 4 Mg/2 Ml Vial IV-PUSH 12/22/25 11:11 4 mg Q6H PRN Administration Nausea And Vomiting Oxycodone HCl 5 mg 12/22/24 11:12 12/26/24 11:21 Oxycodone Ir 5 Mg Tablet PO 5 mg Q4HR PRN Administration Pain Scale 1 - 5 Oxycodone HCl 10 mg 12/22/24 11:12 Oxycodone Ir 5 Mg Tablet PO Q4HR PRN Pain Scale 6 - 10 Polyethylene Glycol 17 gm 12/22/24 09:00 12/26/24 08:10 Polyethylene Glycol 3350 17 Gm Powd.Pack PO 12/22/25 08:59 17 gm DAILY FERN Administration Sennosides 17.2 mg 12/22/24 09:00 12/26/24 08:11 Sennosides 8.6 Mg Tablet PO 12/22/25 08:59 17.2 mg BID FERN Administration Sodium Chloride 0 ml 12/22/24 11:12 Sodium Chloride 0.9 % 10 Ml Syringe IV-PUSH 12/22/25 11:11 PRN PRN Flush A&P - Hospitalist Assessment/Plan (1) Femoral neck fracture: Plan: ? Status post HERRERA on right hip on December 23, 2024 ? Orthopedic surgery to manage ? Pain control as ordered ?Assuming to resume Eliquis tomorrow morning (2) Stage 4 chronic kidney disease: Plan: Kidney function is stable, creatinine did trend up today ? Will consult nephrology ? His creatinine trended up after Lasix yesterday, continue to hold per nephro (3) Type 2 diabetes mellitus with hyperglycemia: Plan: ? A diabetic diet, his glucose is within appropriate ranges on morning BMP (4) Paroxysmal atrial fibrillation: Plan: ? Continue Eliquis per orthopedics discretion (5) Aspiration pneumonia: Plan: Continue switch Unasyn to Augmentin and continue Zithromycin for a total of 5- day treatment ? Patient is already on Trelegy therapy with our hospital substitution for the equivalent dose ? There is absolutely no wheezing whatsoever on his physical exam, no place for DuoNebs at this point in time ? Ideally his hypoxia will increase now that we have resumed his Lasix since hisblood pressure allows it. (6) Acute on chronic anemia: Plan: ? Also component of blood loss anemia secondary to surgery, his baseline is 12 and this morning he is 7.2. He will receive 1 unit PRBC on 12/25 ? He again was 7.4 this a.m., will transfuse 1 more unit today and reassess hemoglobin tomorrow morning. (7) Acute kidney injury superimposed on CKD: Plan: See above, his creatinine is trending up Plan ? DVT prophylaxis addressed ? Diabetic diet ? Full code Discharge pending kidney function, anemia, and therapy participation Documented By: Emile Reynolds, 12/26/24 1324 Signed By: <Electronically signed by Emile Reynolds DO> 12/26/24 4[address] [facility] Work Phone: [phone]) [phone] Progress note Author Zahida Flowers [facility] Note Date/Time December 26, 2024 12: 31pm [facility] [address] [place] [address] Nephrology Progress Note Signed Patient: Delano Ren MR#: [id number] : 1940 Acct:[id number] Age/Sex: 84 / M Adm Date: 5 Loc: Room: [address] [place] [address] Type: ADM IN Attending Dr: Emile Reynolds DO Copies to: ~ Date of Service: 12/26/2024 Subjective Subjective Narrative: This is a 84-year-old male with a medical history of DM, HTN, A-fib, CKD, HFrEF,HLD and anemia was presented to the emergency room after mechanical fall. Patient on evaluation in the emergency room was found to have right hip fracture. Orthopedic was consulted and patient was taken to the OR on 12/23/2024for surgery. On presentation his serum creatinine was 3.2 mg/dL which went downto 2.6 mg/dL with IV fluid resuscitation and holding his Lasix. Patient postoperatively was found to have a relative hypotension and his serum creatinine this morning went up to 3.4 mg/dL. Patient has a longstanding hypertension and was taking multiple antihypertensive medication including amlodipine, hydralazine, metoprolol, Isordil and Lasix. His hospital course wasalso complicated by pneumonia and was started on antibiotics for aspiration pneumonia. Patient also was found to have a worsening anemia his hemoglobin dropped from his baseline 11.7 on presentation to 8.7 g/dL. Nephrology is consulted for WICHO on CKD management. Patient was seen and examined bedside. Hereported that he has CKD and follows with Dr. Syed for CKD care. Interim history Patient was seen and examined at bedside. Denies any chest pain palpitation cough nausea vomiting diarrhea and shortness of breath. He continues to have a good urine output. He was eating his breakfast during my encounter. Exam Physical Exam Vital Signs: Temp Pulse Resp BP Pulse Ox O2 Del Method O2 Flow Rate 98.3 F 76 14 142/68 H 95 Nasal Cannula 4 12/26/24 08:00 12/26/24 04:00 12/26/24 08:00 12/26/24 08:00 12/26/24 08:00 12/26/24 08:00 12/26/24 08:00 FiO2 40 12/24/24 03:09 Narrative: General: Appears comfortable and not in distress Heart: S1-S2, no rub Lung: Bilateral air entry, no wheezing or crackles Abdomen: Soft, positive bowel sounds Extremities: No edema, no cyanosis Head: Atraumatic, normocephalic Ear: No gross hearing Deficit or external ear redness Eyes: No pallor or redness Neck: No JVD or visible mass Skin: No rashes , warm to touch KOSHER INSPECTOR: Awake,Alert, following simple command Musculoskeletal: No swelling or limitation of movement of the large joints Psychiatric: Cooperative, normal mood and affect Objective Intake and Output I&O: Intake & Output 12/23/24 12/24/24 12/25/24 12/26/24 23:59 23:59 23:59 23:59 Intake Total 2800 / 2800 2300 / 2300 1900 / 1900 950 / 950 Output Total 1100 / 1100 1150 / 1150 1800 / 1800 2450 / 2450 Balance 1700 / 1700 1150 / 1150 100 / 100 -1500 / -1500 Weight 99.2 kg 99.2 kg Meds and Allergies Meds: Active Medications Acetaminophen (Acetaminophen 325 Mg Tablet) 650 mg PO Q4H PRN PRN Reason: Pain Scale 1 - 5 Stop: 12/21/25 22:29 Last Admin: 12/23/24 07:59 Dose: 650 mg Acetaminophen (Acetaminophen 500 Mg Tablet) 1,000 mg PO Q8H PRN PRN Reason: Fever or Pain Stop: 12/22/25 11:11 Last Admin: 12/25/24 18:55 Dose: 1,000 mg Albuterol (Albuterol Neb 2.5 Mg/3 Ml Vial.Neb) 2.5 mg INHALATION Q2H PRN PRN Reason: Shortness Of Breath Stop: 12/21/25 22:29 Allopurinol (Allopurinol 100 Mg Tablet) 100 mg PO DAILY FERN Stop: 12/22/25 08:59 Last Admin: 12/26/24 08:10 Dose: 100 mg Amiodarone HCl (Amiodarone 200 Mg Tablet) 200 mg PO DAILY FERN Stop: 12/22/25 08:59 Last Admin: 12/26/24 08:11 Dose: 200 mg Amlodipine Besylate (Amlodipine 10 Mg Tablet) 10 mg PO DAILY FERN Stop: 12/22/25 08:59 Last Admin: 12/24/24 08:38 Dose: Not Given Amoxicillin/Clavulanate Potassium (Amoxicillin/Clav 500-125 Mg Tablet) 1 tab POBID FERN Stop: 12/28/24 20:59 Last Admin: 12/26/24 08:11 Dose: 1 tab Ascorbic Acid (Ascorbic Acid 500 Mg Tablet) 500 mg PO DAILY FERN Stop: 12/23/25 08:59 Last Admin: 12/26/24 08:11 Dose: 500 mg Azithromycin (Azithromycin 250 Mg Tablet) 500 mg PO Q24H FERN Stop: 12/28/24 23:00 Last Admin: 12/25/24 16:38 Dose: 500 mg Calcium Carbonate (Calcium Carbonate/Vitamin D3 500 Mg/200 Unit Tablet) 1 tab PO TID.WITH.MEALS FERN Stop: 12/22/25 11:59 Last Admin: 12/26/24 11:21 Dose: 1 tab Diphenhydramine HCl (Diphenhydramine 25 Mg Capsule) 25 mg PO Q6H PRN PRN Reason: Itching Stop: 12/23/25 13:12 Docusate Sodium (Docusate 100 Mg Capsule) 200 mg PO BID PRN PRN Reason: Constipation Stop: 12/21/25 22:29 Docusate Sodium (Docusate 100 Mg Capsule) 100 mg PO BID FERN Stop: 12/23/25 20:59 Last Admin: 12/26/24 08:10 Dose: 100 mg Fluticasone/Umeclidinium/Vilanterol (Fluticas/Umeclidin/Vilanter 200-62.5-25 Mcg28 Puff Inhaler *Nf*) 1 puff INHALATION DAILY FERN Stop: 12/23/25 08:59 Last Admin: 12/26/24 10:38 Dose: 1 puff Furosemide (Furosemide 80 Mg Tablet) 80 mg PO DAILY FERN Stop: 12/25/25 10:14 Last Admin: 12/26/24 08:11 Dose: 80 mg Hydralazine HCl (Hydralazine 20 Mg/Ml Vial) 10 mg IV-PUSH Q4H PRN PRN Reason: if SBP > 185 Stop: 12/21/25 22:29 Hydralazine HCl (Hydralazine 50 Mg Tablet) 100 mg PO TID REPLACED BY [facility] Stop: 12/22/25 08:59 Last Admin: 12/26/24 08:12 Dose: 100 mg Hydromorphone HCl (Hydromorphone 1 Mg/Ml Syringe) 0.25 mg IV-PUSH Q4H PRN PRN Reason: pain Last Admin: 12/22/24 09:42 Dose: 0.25 mg Hydromorphone HCl (Hydromorphone 0.5 Mg/0.5 Ml Syringe) 0.5 mg IV-PUSH Q2H PRN PRN Reason: Pain Scale 1 - 3 Last Admin: 12/23/24 08:45 Dose: 0.5 mg Hydromorphone HCl (Hydromorphone 1 Mg/Ml Syringe) 1 mg IV-PUSH Q2H PRN PRN Reason: Pain Scale 4 - 6 Sodium Chloride (0.9% Sodium Chloride 100 Ml) 100 mls @ 20 mls/hr IV PROTOCOL PRN PRN Reason: BLOOD TRANSFUSION Stop: 12/27/24 08:24 Isosorbide Dinitrate (Isosorbide Dinitrate 10 Mg Tablet) 10 mg PO TID REPLACED BY [facility] Stop: 12/22/25 08:59 Last Admin: 12/26/24 08:11 Dose: 10 mg Lidocaine HCl (Lidocaine 1% 50 Ml Vial) 0.1 ml INTRADERMA PREOP PRN PRN Reason: Venipuncture x 1 Dose Magnesium Hydroxide (Magnesium Hydroxide Susp 30 Ml Udc) 30 ml PO DAILY PRN PRN Reason: Constipation Stop: 12/22/25 11:11 Metoprolol Succinate (Metoprolol Succinate 100 Mg Tab.Er.24h) 100 mg PO DAILY REPLACED BY [facility] Stop: 12/22/25 08:59 Last Admin: 12/26/24 08:11 Dose: 100 mg Multivitamins (Multivitamin 1 Tab Tablet) 1 tab PO DAILY REPLACED BY [facility] Stop: 12/23/25 08:59 Last Admin: 12/26/24 08:10 Dose: 1 tab Ondansetron HCl (Ondansetron 4 Mg/2 Ml Vial) 4 mg IV-PUSH Q6H PRN PRN Reason: Nausea And Vomiting Stop: 12/22/25 11:11 Last Admin: 12/23/24 08:58 Dose: 4 mg Oxycodone HCl (Oxycodone Ir 5 Mg Tablet) 5 mg PO Q4HR PRN PRN Reason: Pain Scale 1 - 5 Last Admin: 12/26/24 11:21 Dose: 5 mg Oxycodone HCl (Oxycodone Ir 5 Mg Tablet) 10 mg PO Q4HR PRN PRN Reason: Pain Scale 6 - 10 Polyethylene Glycol (Polyethylene Glycol 3350 17 Gm Powd.Pack) 17 gm PO DAILY FERN Stop: 12/22/25 08:59 Last Admin: 12/26/24 08:10 Dose: 17 gm Sennosides (Sennosides 8.6 Mg Tablet) 17.2 mg PO BID FERN Stop: 12/22/25 08:59 Last Admin: 12/26/24 08:11 Dose: 17.2 mg Sodium Chloride (Sodium Chloride 0.9 % 10 Ml Syringe) 0 ml IV-PUSH PRN PRN PRN Reason: Flush Stop: 12/22/25 11:11 Allergies simvastatin Allergy (Unknown, Verified 12/19/24 08:50) Unknown Reaction Raepjfs-JHC-PlL Reductase Inhibitor (Sjjrtbm-Otg-Xoy Reductase Inhibitor) Allergy (Unknown, Verified 12/19/24 08:50) Muscle Pain tramadol Allergy (Verified 12/19/24 08:50) Itching niacin ER Allergy (Uncoded 08/22/24 08:31) itching Results - Nephrology Labs 12/26/24 04:59 12/26/24 04:59 Labs: 12/26/24 04:59 BUN 85 H Creatinine 3.82 H Radiology Impressions Impressions - last 24 hours: Any impression(s) listed above is documentation that was entered by the reading physician into a diagnostic report(s) for Delano Ren. I have reviewed the report(s) and am incorporating any findings in the treatment plan of this patient where applicable. A&P - Nephrology Assessment/Plan (1) Acute kidney injury superimposed on CKD: Assessment/Problem Details: He has WICHO on CKD likely due to the relative hypotension and postoperative bloodloss anemia. (2) Stage 4 chronic kidney disease: Assessment/Problem Details: He has a longstanding CKD due to the DM and HTN with baseline serum creatinine around 2.6-3 mg/dL. (3) Hypertensive chronic kidney disease with stage 1 through stage 4 chronic kidney disease, or unspecified chronic kidney disease: Assessment/Problem Details: His blood pressures has been running relatively low. He is on multiple antihypertensive medication including amlodipine, hydralazine, furosemide, metoprolol, Isordil. (4) Acute on chronic anemia: Assessment/Problem Details: He has acute on chronic anemia due to the blood loss anemia. (5) Aspiration pneumonia: Assessment/Problem Details: Patient was found to have aspiration pneumonia. Currently on antibiotics. (6) Chronic HFrEF (heart failure with reduced ejection fraction): Assessment/Problem Details: He appears to be well compensated. He was taking Lasix at home. (7) Type 2 diabetes mellitus with hyperglycemia: Assessment/Problem Details: He has ilk-xqzauag-ocqucbosx type 2 diabetes mellitus currently on diet control. Plan * No need for emergent hemodialysis now. Will continue to assess its needs on regular basis. * Continue to hold hold amlodipine * Will hold Lasix as renal function has declined with diuresis. He appears to be well compensated. * Continue antibiotics for pneumonia as per the primary team. * Will continue hydralazine, Isordil and metoprolol. * Monitor H&H and transfuse as needed to keep the hemoglobin greater than 8 g/dL. * Check renal function daily and monitor for output * Documented By: Zahida Flowers MD 12/26/24 1230 Signed By: <Electronically signed by Zahida Flowers MD> 12/26/24 1233 [facility] Work Phone: [phone] [place] [address] Hospitalist Progress Note Signed Patient: Delano Rne MR#: [id number] : 1940 Acct:[id number] Age/Sex: 84 / M Adm Date: 5 Loc: 4N Room: 1A5816-2 Type: ADM IN Attending Dr: Emile Reynolds DO Copies to: ~ Date of Service: 12/26/2024 Subjective Subjective Narrative: seem and evaluated, he is sitting up in the chair. He did have some bleeding on his bandage overnight. He understands he needs to participate more with therapy in order to be strong enough for a goodchance with inpatient rehab. He is stillon NC. Does have some wheezing this AM which is new for him. Exam Physical Exam Vital Signs: Temp Pulse Resp BP Pulse Ox O2 Del Method O2 Flow Rate 98.2 F 78 16 153/71 H 95 Nasal Cannula 3 12/26/24 13:02 12/26/24 13:02 12/26/24 13:02 12/26/24 13:02 12/26/24 13:02 12/26/24 13:02 12/26/24 13:02 FiO2 40 12/24/24 03:09 Narrative: General: Awake alert, no acute distress HEENT: head atraumatic, normocephalic, moist mucous membranes Neck: supple no masses, no lymphadenopathy CVS: regular rate and rhythm, no murmurs or gallops Respiratory: clear to auscultation bilaterally, no wheezing or crackles, symmetric expansion GI: soft, nondistended, nontender, positive bowel sounds with no organomegaly Extremity: moves all extremities, no restrictions of movements, no calf tenderness, no edema. Righthip dressing does have some saturated blood noted is not soaking through the dressing. Neuro: AOx3, CN II-VII intact. Moves all extremities in all planes of motion. Skin: dry, intact no rashes or lesions Objective Lab Results 12/26/24 04:59 12/26/24 04:59 Meds Allergies and Active Meds Allergies simvastatin Allergy (Unknown, Verified 12/19/24 08:50) Unknown Reaction Tjsqblp-BTZ-LpU Reductase Inhibitor (Hxhhlcc-Fxf-Ctb Reductase Inhibitor) Allergy (Unknown, Verified 12/19/24 08:50) Muscle Pain tramadol Allergy (Verified 12/19/24 08:50) Itching niacin ER Allergy (Uncoded 08/22/24 08:31) itching Active Meds: Active Medications Generic Name Dose Route Start Last Admin Trade Name Freq PRN Reason Stop Dose Admin Acetaminophen 650 mg 12/21/24 22:30 12/23/24 07:59 Acetaminophen 325 Mg Tablet PO 12/21/25 22:29 650 mg Q4H PRN Administration Pain Scale 1 - 5 Acetaminophen 1,000 mg 12/22/24 11:12 12/25/24 18:55 Acetaminophen 500 Mg Tablet PO 12/22/25 11:11 1,000 mg Q8H PRN Administration Fever or Pain Albuterol 2.5 mg 12/21/24 22:30 Albuterol Neb 2.5 Mg/3 Ml Vial.Neb INHALATION 12/21/25 22:29 Q2H PRN Shortness Of Breath Allopurinol 100 mg 12/22/24 09:00 12/26/24 08:10 Allopurinol 100 Mg Tablet PO 12/22/25 08:59 100 mg DAILY FERN Administration Amiodarone HCl 200 mg 12/22/24 09:00 12/26/24 08:11 Amiodarone 200 Mg Tablet PO 12/22/25 08:59 200 mg DAILY FERN Administration Amlodipine Besylate 10 mg 12/22/24 09:00 12/24/24 08:38 Amlodipine 10 Mg Tablet PO 12/22/25 08:59 Not Given DAILY FERN Amoxicillin/Clavulanate Potassium 1 tab 12/24/24 21:00 12/26/24 08:11 Amoxicillin/Clav 500-125 Mg Tablet PO 12/28/24 20:59 1 tab BID FERN Administration Ascorbic Acid 500 mg 12/23/24 09:00 12/26/24 08:11 Ascorbic Acid 500 Mg Tablet PO 12/23/25 08:59 500 mg DAILY FERN Administration Azithromycin 500 mg 12/24/24 16:00 12/25/24 16:38 Azithromycin 250 Mg Tablet PO 12/28/24 23:00 500 mg Q24H FERN Administration Calcium Carbonate 1 tab 12/22/24 12:00 12/26/24 11:21 Calcium Carbonate/Vitamin D3 500 Mg/200 Unit Tablet PO 12/22/25 11:59 1 tab TID.WITH.MEALS FERN Administration Diphenhydramine HCl 25 mg 12/23/24 13:13 Diphenhydramine 25 Mg Capsule PO 12/23/25 13:12 Q6H PRN Itching Docusate Sodium 200 mg 12/21/24 22:30 Docusate 100 Mg Capsule PO 12/21/25 22:29 BID PRN Constipation Docusate Sodium 100 mg 12/23/24 21:00 12/26/24 08:10 Docusate 100 Mg Capsule PO 12/23/25 20:59 100 mg BID FERN Administration Fluticasone/Umeclidinium/Vilanterol 1 puff 12/23/24 09:00 12/26/24 10:38 Fluticas/Umeclidin/Vilanter 200-62.5-25 Mcg 28 Puff Inhaler *Nf* INHALATION 12/23/25 08:59 1 puff DAILY FERN Administration Furosemide 80 mg 12/25/24 10:15 12/26/24 08:11 Furosemide 80 Mg Tablet PO 12/25/25 10:14 80 mg DAILY FERN Administration Hydralazine HCl 10 mg 12/21/24 22:30 Hydralazine 20 Mg/Ml Vial IV-PUSH 12/21/25 22:29 Q4H PRN if SBP > 185 Hydralazine HCl 100 mg 12/22/24 09:00 12/26/24 08:12 Hydralazine 50 Mg Tablet PO 12/22/25 08:59 100 mg TID FERN Administration Hydromorphone HCl 0.25 mg 12/21/24 22:30 12/22/24 09:42 Hydromorphone 1 Mg/Ml Syringe IV-PUSH 0.25 mg Q4H PRN Administration pain Hydromorphone HCl 0.5 mg 12/22/24 11:12 12/23/24 08:45 Hydromorphone 0.5 Mg/0.5 Ml Syringe IV-PUSH 0.5 mg Q2H PRN Administration Pain Scale 1 - 3 Hydromorphone HCl 1 mg 12/22/24 11:12 Hydromorphone 1 Mg/Ml Syringe IV-PUSH Q2H PRN Pain Scale 4 - 6 Sodium Chloride 100 mls @ 20 mls/hr 12/26/24 08:25 0.9% Sodium Chloride 100 Ml IV 12/27/24 08:24 PROTOCOL PRN BLOOD TRANSFUSION Isosorbide Dinitrate 10 mg 12/22/24 09:00 12/26/24 08:11 Isosorbide Dinitrate 10 Mg Tablet PO 12/22/25 08:59 10 mg TID FERN Administration Lidocaine HCl 0.1 ml 12/23/24 08:00 Lidocaine 1% 50 Ml Vial INTRADERMA PREOP PRN Venipuncture x 1 Dose Magnesium Hydroxide 30 ml 12/22/24 11:12 Magnesium Hydroxide Susp 30 Ml Udc PO 12/22/25 11:11 DAILY PRN Constipation Metoprolol Succinate 100 mg 12/22/24 09:00 12/26/24 08:11 Metoprolol Succinate 100 Mg Tab.Er.24h PO 12/22/25 08:59 100 mg DAILY FERN Administration Multivitamins 1 tab 12/23/24 09:00 12/26/24 08:10 Multivitamin 1 Tab Tablet PO 12/23/25 08:59 1 tab DAILY FERN Administration Ondansetron HCl 4 mg 12/22/24 11:12 12/23/24 08:58 Ondansetron 4 Mg/2 Ml Vial IV-PUSH 12/22/25 11:11 4 mg Q6H PRN Administration Nausea And Vomiting Oxycodone HCl 5 mg 12/22/24 11:12 12/26/24 11:21 Oxycodone Ir 5 Mg Tablet PO 5 mg Q4HR PRN Administration Pain Scale 1 - 5 Oxycodone HCl 10 mg 12/22/24 11:12 Oxycodone Ir 5 Mg Tablet PO Q4HR PRN Pain Scale 6 - 10 Polyethylene Glycol 17 gm 12/22/24 09:00 12/26/24 08:10 Polyethylene Glycol 3350 17 Gm Powd.Pack PO 12/22/25 08:59 17 gm DAILY FERN Administration Sennosides 17.2 mg 12/22/24 09:00 12/26/24 08:11 Sennosides 8.6 Mg Tablet PO 12/22/25 08:59 17.2 mg BID FERN Administration Sodium Chloride 0 ml 12/22/24 11:12 Sodium Chloride 0.9 % 10 Ml Syringe IV-PUSH 12/22/25 11:11 PRN PRN Flush A&P - Hospitalist Assessment/Plan (1) Femoral neck fracture: Plan: ? Status post HERRERA on right hip on December 23, 2024 ? Orthopedic surgery to manage ? Pain control as ordered ?Assuming to resume Eliquis tomorrow morning (2) Stage 4 chronic kidney disease: Plan: Kidney function is stable, creatinine did trend up today ? Will consult nephrology ? His creatinine trended up after Lasix yesterday, continue to hold per nephro (3) Type 2 diabetes mellitus with hyperglycemia: Plan: ? A diabetic diet, his glucose is within appropriate ranges on morning BMP (4) Paroxysmal atrial fibrillation: Plan: ? Continue Eliquis per orthopedics discretion (5) Aspiration pneumonia: Plan: Continue switch Unasyn to Augmentin and continue Zithromycin for a total of 5- day treatment ? Patient is already on Trelegy therapy with our hospital substitution for the equivalent dose ? There is absolutely no wheezing whatsoever on his physical exam, no place for DuoNebs at this point in time ? Ideally his hypoxia will increase now that we have resumed his Lasix since hisblood pressure allows it. (6) Acute on chronic anemia: Plan: ? Also component of blood loss anemia secondary to surgery, his baseline is 12 and this morning he is 7.2. He will receive 1 unit PRBC on 12/25 ? He again was 7.4 this a.m., will transfuse 1 more unit today and reassess hemoglobin tomorrow morning. (7) Acute kidney injury superimposed on CKD: Plan: See above, his creatinine is trending up Plan ? DVT prophylaxis addressed ? Diabetic diet ? Full code Discharge pending kidney function, anemia, and therapy participation Documented By: Emile Reynolds DO 12/26/24 1324 Signed By: 12/26/24 1331 [facility]03-13-2025 [place] [address] Nephrology Progress Note Signed Patient: Delano Ren MR#: [id number] : 1940 Acct:[id number] Age/Sex: 84 / M Adm Date: 5 Loc: N Room: 0P2466-0 Type: ADM IN Attending Dr: Emile Reynolds DO Copies to: ~ Date of Service: 12/26/2024 Subjective Subjective Narrative: This is a 84-year-old male with a medical history of DM, HTN, A-fib, CKD, HFrEF,HLD and anemia was presented to the emergency room after mechanical fall. Patient on evaluation in the emergency room was found to have right hip fracture. Orthopedic was consulted and patient was taken to the OR on 12/23for surgery. On presentation his serum creatinine was 3.2 mg/dL which went downto 2.6 mg/dL with IV fluid resuscitation and holding his Lasix. Patient postoperatively was found to have a relative hypotension and his serum creatinine this morning went up to 3.4 mg/dL. Patient has a longstanding hypertension and was taking multiple antihypertensive medication including amlodipine, hydralazine,metoprolol, Isordil and Lasix. His hospital course wasalso complicated by pneumonia and was startedon antibiotics for aspiration pneumonia. Patient also was found to have a worsening anemia his hemoglobin dropped from his baseline 11.7 on presentation to 8.7 g/dL. Nephrology is consulted for WICHO on CKD management. Patient was seen and examined bedside. Hereported that he has CKD and follows withDr. Syed for CKD care. Interim history Patient was seen and examined at bedside. Denies any chest pain palpitation cough nausea vomiting diarrhea and shortness of breath. He continues to have a good urine output. He was eating his breakfast during my encounter. Exam Physical Exam Vital Signs: Temp Pulse Resp BP Pulse Ox O2 Del Method O2 Flow Rate 98.3 F 76 14 142/68 H 95 Nasal Cannula 4 12/26/24 08:00 12/26/24 04:00 12/26/24 08:00 12/26/24 08:00 12/26/24 08:00 12/26/24 08:00 12/26/24 08:00 FiO2 40 12/24/24 03:09 Narrative: General: Appears comfortable and not in distress Heart: S1-S2, no rub Lung: Bilateral air entry, no wheezing or crackles Abdomen: Soft, positive bowel sounds Extremities: No edema, no cyanosis Head: Atraumatic, normocephalic Ear: No gross hearing Deficit or external ear redness Eyes: No pallor or redness Neck: No JVD or visible mass Skin: No rashes , warm to touch [employer] INSPECTOR: Awake,Alert, following simple command Musculoskeletal: No swelling or limitation of movement of the large joints Psychiatric: Cooperative, normal mood and affect Objective Intake and Output I&O: Intake & Output 12/23/24 12/24/24 12/25/24 12/26/24 23:59 23:59 23:59 23:59 Intake Total 2800 / 2800 2300 / 2300 1900 / 1900 950 / 950 Output Total 1100 / 1100 1150 / 1150 1800 / 1800 2450 / 2450 Balance 1700 / 1700 1150 / 1150 100 / 100 -1500 / -1500 Weight 99.2 kg 99.2 kg Meds and Allergies Meds: Active Medications Acetaminophen (Acetaminophen 325 Mg Tablet) 650 mg PO Q4H PRN PRN Reason: Pain Scale 1 - 5 Stop: 12/21/25 22:29 Last Admin: 12/23/24 07:59 Dose: 650 mg Acetaminophen (Acetaminophen 500 Mg Tablet) 1,000 mg PO Q8H PRN PRN Reason: Fever or Pain Stop: 12/22/25 11:11 Last Admin: 12/25/24 18:55 Dose: 1,000 mg Albuterol (Albuterol Neb 2.5 Mg/3 Ml Vial.Neb) 2.5 mg INHALATION Q2H PRN PRN Reason: Shortness Of Breath Stop: 12/21/25 22:29 Allopurinol (Allopurinol 100 Mg Tablet) 100 mg PO DAILY FERN Stop: 12/22/25 08:59 Last Admin: 12/26/24 08:10 Dose: 100 mg Amiodarone HCl (Amiodarone 200 Mg Tablet) 200 mg PO DAILY FERN Stop: 12/22/25 08:59 Last Admin: 12/26/24 08:11 Dose: 200 mg Amlodipine Besylate (Amlodipine 10 Mg Tablet) 10 mg PO DAILY FERN Stop: 12/22/25 08:59 Last Admin: 12/24/24 08:38 Dose: Not Given Amoxicillin/Clavulanate Potassium (Amoxicillin/Clav 500-125 Mg Tablet) 1 tab POBID FERN Stop: 12/28/24 20:59 Last Admin: 12/26/24 08:11 Dose: 1 tab Ascorbic Acid (Ascorbic Acid 500 Mg Tablet) 500 mg PO DAILY FERN Stop: 12/23/25 08:59 Last Admin: 12/26/24 08:11 Dose: 500 mg Azithromycin (Azithromycin 250 Mg Tablet) 500 mg PO Q24H FERN Stop: 12/28/24 23:00 Last Admin: 12/25/24 16:38 Dose: 500 mg Calcium Carbonate (Calcium Carbonate/Vitamin D3 500 Mg/200 Unit Tablet) 1 tab PO TID.WITH.MEALS FERN Stop: 12/22/25 11:59 Last Admin: 12/26/24 11:21 Dose: 1 tab Diphenhydramine HCl (Diphenhydramine 25 Mg Capsule) 25 mg PO Q6H PRN PRN Reason: Itching Stop: 12/23/25 13:12 Docusate Sodium (Docusate 100 Mg Capsule) 200 mg PO BID PRN PRN Reason: Constipation Stop: 12/21/25 22:29 Docusate Sodium (Docusate 100 Mg Capsule) 100 mg PO BID REPLACED BY [facility] Stop: 12/23/25 20:59 Last Admin: 12/26/24 08:10 Dose: 100 mg Fluticasone/Umeclidinium/Vilanterol (Fluticas/Umeclidin/Vilanter 200-62.5-25 Mcg28 Puff Inhaler *Nf*) 1 puff INHALATION DAILY REPLACED BY [facility] Stop: 12/23/25 08:59 Last Admin: 12/26/24 10:38 Dose: 1 puff Furosemide (Furosemide 80 Mg Tablet) 80 mg PO DAILY REPLACED BY [facility] Stop: 12/25/25 10:14 Last Admin: 12/26/24 08:11 Dose: 80 mg Hydralazine HCl (Hydralazine 20 Mg/Ml Vial) 10 mg IV-PUSH Q4H PRN PRN Reason: if SBP > 185 Stop: 12/21/25 22:29 Hydralazine HCl (Hydralazine 50 Mg Tablet) 100 mg PO TID REPLACED BY [facility] Stop: 12/22/25 08:59 Last Admin: 12/26/24 08:12 Dose: 100 mg Hydromorphone HCl (Hydromorphone 1 Mg/Ml Syringe) 0.25 mg IV-PUSH Q4H PRN PRN Reason: pain Last Admin: 12/22/24 09:42 Dose: 0.25 mg Hydromorphone HCl (Hydromorphone 0.5 Mg/0.5 Ml Syringe) 0.5 mg IV-PUSH Q2H PRN PRN Reason: Pain Scale 1 - 3 Last Admin: 12/23/24 08:45 Dose: 0.5 mg Hydromorphone HCl (Hydromorphone 1 Mg/Ml Syringe) 1 mg IV-PUSH Q2H PRN PRN Reason: Pain Scale 4 - 6 Sodium Chloride (0.9% Sodium Chloride 100 Ml) 100 mls @ 20 mls/hr IV PROTOCOL PRN PRN Reason: BLOOD TRANSFUSION Stop: 12/27/24 08:24 Isosorbide Dinitrate (Isosorbide Dinitrate 10 Mg Tablet) 10 mg PO TID REPLACED BY [facility] Stop: 12/22/25 08:59 Last Admin: 12/26/24 08:11 Dose: 10 mg Lidocaine HCl (Lidocaine 1% 50 Ml Vial) 0.1 ml INTRADERMA PREOP PRN PRN Reason: Venipuncture x 1 Dose Magnesium Hydroxide (Magnesium Hydroxide Susp 30 Ml Udc) 30 ml PO DAILY PRN PRN Reason: Constipation Stop: 12/22/25 11:11 Metoprolol Succinate (Metoprolol Succinate 100 Mg Tab.Er.24h) 100 mg PO DAILY REPLACED BY [facility] Stop: 12/22/25 08:59 Last Admin: 12/26/24 08:11 Dose: 100 mg Multivitamins (Multivitamin 1 Tab Tablet) 1 tab PO DAILY FERN Stop: 12/23/25 08:59 Last Admin: 12/26/24 08:10 Dose: 1 tab Ondansetron HCl (Ondansetron 4 Mg/2 Ml Vial) 4 mg IV-PUSH Q6H PRN PRN Reason: Nausea And Vomiting Stop: 12/22/25 11:11 Last Admin: 12/23/24 08:58 Dose: 4 mg Oxycodone HCl (Oxycodone Ir 5 Mg Tablet) 5 mg PO Q4HR PRN PRN Reason: Pain Scale 1 - 5 Last Admin: 12/26/24 11:21 Dose: 5 mg Oxycodone HCl (Oxycodone Ir 5 Mg Tablet) 10 mg PO Q4HR PRN PRN Reason: Pain Scale 6 - 10 Polyethylene Glycol (Polyethylene Glycol 3350 17 Gm Powd.Pack) 17 gm PO DAILY REPLACED BY [facility] Stop: 12/22/25 08:59 Last Admin: 12/26/24 08:10 Dose: 17 gm Sennosides (Sennosides 8.6 Mg Tablet) 17.2 mg PO BID REPLACED BY [facility] Stop: 12/22/25 08:59 Last Admin: 12/26/24 08:11 Dose: 17.2 mg Sodium Chloride (Sodium Chloride 0.9 % 10 Ml Syringe) 0 ml IV-PUSH PRN PRN PRN Reason: Flush Stop: 12/22/25 11:11 Allergies simvastatin Allergy (Unknown, Verified 12/19/24 08:50) Unknown Reaction Xtjucbz-PZW-MyY Reductase Inhibitor (Gemmemf-Awm-Kix Reductase Inhibitor) Allergy (Unknown, Verified 12/19/24 08:50) Muscle Pain tramadol Allergy (Verified 12/19/24 08:50) Itching niacin ER Allergy (Uncoded 08/22/24 08:31) itching Results - Nephrology Labs 12/26/24 04:59 12/26/24 04:59 Labs: 12/26/24 04:59 BUN 85 H Creatinine 3.82 H Radiology Impressions Impressions - last 24 hours: Any impression(s) listed above is documentation that was entered by the reading physician into a diagnostic report(s) for Delano Ren. I have reviewed the report(s) and am incorporating any findings in the treatment plan of this patient where applicable. A&P - Nephrology Assessment/Plan (1) Acute kidney injury superimposed on CKD: Assessment/Problem Details: He has WICHO on CKD likely due to the relative hypotension and postoperative bloodloss anemia. (2) Stage 4 chronic kidney disease: Assessment/Problem Details: He has a longstanding CKD due to the DM and HTN with baseline serum creatinine around 2.6-3 mg/dL. (3) Hypertensive chronic kidney disease with stage 1 through stage 4 chronic kidney disease, or unspecified chronic kidney disease: Assessment/Problem Details: His blood pressures has been running relatively low. He is on multiple antihypertensive medication including amlodipine, hydralazine, furosemide, metoprolol, Isordil. (4) Acute on chronic anemia: Assessment/Problem Details: He has acute on chronic anemia due to the blood loss anemia. (5) Aspiration pneumonia: Assessment/Problem Details: Patient was found to have aspiration pneumonia. Currently on antibiotics. (6) Chronic HFrEF (heart failure with reduced ejection fraction): Assessment/Problem Details: He appears to be well compensated. He was taking Lasix at home. (7) Type 2 diabetes mellitus with hyperglycemia: Assessment/Problem Details: He has ccx-evnrjvl-wtikrqdmr type 2 diabetes mellitus currently on diet control. Plan * No need for emergent hemodialysis now. Will continue to assess its needs on regular basis. * Continue to hold hold amlodipine * Will hold Lasix as renal function has declined with diuresis. He appears to be well compensated. * Continue antibiotics for pneumonia as per the primary team. * Will continue hydralazine, Isordil and metoprolol. * Monitor H&H and transfuse as needed to keep the hemoglobin greater than 8 g/dL. * Check renal function daily and monitor for output * Documented By: Zahida Flowers MD 12/26/24 1230 Signed By: 12/26/24 1231 [facility]03-12-2025 Consult note Author Clyde Bedolla [facility] Note Date/Time December 25, 2024 2:0 7pm [facility] [address] [place] [address] Physiatry (Rehab) Consult Note Signed Patient: Delano Ren MR#: [id number] : 1940 Acct:[id number] Age/Sex: 84 / M Adm Date: 5 Loc: Room: [address] [place] [address] Type: ADM IN Attending Dr: Emile Reynolds DO Copies to: DO Clyde Lauren MD Shawn J Warner, DO~ HPI Consult Date: 12/25/24 Requesting Physician: Emile Reynolds DO Primary Care Provider: Yas Linda DO Consult Narrative Reason for consult: Evaluation for inpatient rehab HPI: Mr. 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 He is now s/p right hip hemiarthroplasty. WBAT. The patient is IND at baseline. Lives with spouse. Seen today in consultation for inpatient rehab. The patient admits to hip pain on the right. He also was noted to be anemic with worsening of kidney function for which he is receiving PRBCs. The patient has worked with therapy but is very debilitated at this time. Only able to ambulate about 3' but at a Max x2 level of assistance. Bed mobility and transfers also essentially dependent. Family requesting that the patient come toIRF. I did discuss that I would need to see that he is tolerating therapy betterand that he is medically improving prior to IRF approval. Review of Systems Review of Systems All other systems reviewed & are negative unless noted below or in HPI [facility] Medical History (Updated 12/24/24 @ 15:28 by Zahida Flowers MD) Former smoker quit at age ~44 COPD (chronic obstructive pulmonary disease) cpap use Screening PSA (prostate specific antigen) PSA: 0.91 - 07/2024 Chronic bronchitis, simple Chronic HFrEF (heart failure with reduced ejection fraction) Echo: LVEF 25%, RV reduced function, RVSP 61, SANJAY, mod MR - 02/2023 Type 2 diabetes mellitus with hyperglycemia Thyrotoxicosis Stage 4 chronic kidney disease Pulmonary hypertension Psoas abscess Primary hypertension Paroxysmal atrial fibrillation Ablation - 10/2019 Cardioversion - 10/2024 Obstructive sleep apnea Nonischemic dilated cardiomyopathy LHC: nonobstructive coronary disease - 2016 s/p ICD - 10/2019, BiV ICD - 05/2023 Lumbar spondylosis 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 Hypokalemia Hyperuricemia Hypertensive chronic kidney disease with stage 1 through stage 4 chronic kidney disease, or unspecified chronic kidney disease Hyperlipidemia type II Complete heart block Chronic venous insufficiency Hyperthyroidism Hyperlipidemia Chicken pox Arthritis Anemia Wears hearing aid in left ear Colon cancer Hemicolectomy 08/2021, Surveillance colonoscopy 07/2022 (repeat 2 years) Hypercholesteremia Coronary artery disease A-fib hx ablation Surgical History Hx of tonsillectomy Hx of cardiac catheterization (~2015) Biventricular ICD (implantable cardioverter-defibrillator) in place (~05/2023) H/O cardiac radiofrequency ablation H/O right hemicolectomy (~08/2021) H/O colonoscopy (~08/2024) 07/2022, 08/2024 w/ plan to repeat 2 years History of right heart catheterization (RHC) History of left knee replacement Pacemaker Family History Father CHF (congestive heart failure) Heart disease Mother Diabetes mellitus, type 2 Heart disease Brother Cancer Son Blackfan Glo anemia Social History Smoking Status: Never smoker Tobacco Type: cigarettes Substance Use Type: None Meds Medications and Allergies Allergies simvastatin Allergy (Unknown, Verified 12/19/24 08:50) Unknown Reaction Zhnxzhy-MAK-SnE Reductase Inhibitor (Ryccujm-Oet-Kcf Reductase Inhibitor) Allergy (Unknown, Verified 12/19/24 08:50) Muscle Pain tramadol Allergy (Verified 12/19/24 08:50) Itching niacin ER Allergy (Uncoded 08/22/24 08:31) itching Home Medications hydralazine 100 mg tablet 100 mg PO TID 30 days #90 tabs 06/09/21 [Rx Confirmed 12/21/24] niacin 500 mg tablet 500 mg PO DAILY 30 days #30 tabs 06/09/21 [Rx Confirmed 12/21/24] amlodipine 10 mg tablet 10 mg PO DAILY 07/21/22 [History Confirmed 12/21/24] isosorbide dinitrate 10 mg tablet 10 mg PO TID 07/21/22 [History Confirmed 12/21/24] apixaban 2.5 mg tablet (Eliquis) 2.5 mg PO BID 03/03/23 [History Confirmed 12/21/24] blood sugar diagnostic (Contour Next Test Strips) 12/15/23 [History Confirmed 12/19/24] cholecalciferol (vitamin D3) 125 mcg (5,000 unit) tablet 5,000 unit PO DAILY 12/15/23 [History Confirmed 12/21/24] metoprolol succinate 100 mg tablet,extended release 24 hr 100 mg PO DAILY 12/15/23 [History Confirmed 12/21/24] furosemide 80 mg tablet 80 mg PO DAILY 30 days #30 tabs 12/18/23 [Rx Confirmed 12/21/24] fluticasone fur. 200 mcg-umeclid 62.5 mcg-vilant 25 mcg inhalat.powder (Trelegy Ellipta) 1 inh inhalation DAILY 90 days #90 ea 02/15/24 [Rx Confirmed 12/21/24] ezetimibe 10 mg tablet 10 mg PO DAILY 03/01/24 [History Confirmed 12/21/24] allopurinol 100 mg tablet 100 mg PO DAILY 90 days #90 tabs 06/05/24 [Rx Confirmed 12/21/24] acetaminophen 500 mg tablet (Acetaminophen Extra Strength) 1,000 mg PO DIRECTED PRN pain 08/12/24 [History Confirmed 12/21/24] losartan 25 mg tablet 25 mg PO DAILY 08/12/24 [History Confirmed 12/21/24] potassium chloride 10 mEq tablet,extended release(part/cryst) See Rx Instructions .Route .COMPLEX #90 tabs 10/15/24 [Rx Confirmed 12/21/24] amiodarone 200 mg tablet 200 mg PO DAILY 11/08/24 [History Confirmed 12/21/24] Exam Physical Exam Vital Signs: Temp Pulse Resp BP Pulse Ox O2 Del Method O2 Flow Rate 97.8 F 66 15 119/56 L 95 Nasal Cannula 3 12/25/24 11:57 12/25/24 11:57 12/25/24 11:57 12/25/24 11:57 12/25/24 11:57 12/25/24 08:00 12/25/24 08:00 FiO2 40 12/24/24 03:09 Narrative: NAD. Lying in bed Extremities well perfused No respiratory distress Abdomen soft, non distended, non tender NATALYA. RLE strength limited by pain Speech is normal Results - Phys. Rehab Labs Labs: Laboratory Results - last 24 hr 12/23/24 12/25/24 04:20 06:00 Corrected WBC 8.0 Uncorrected WBC Count 8.0 RBC 2.19 L Hgb 7.2 L Hct 20.9 L MCV 95.3 MCH 32.8 MCHC 34.4 RDW 14.6 Plt Count 137 L MPV 8.0 Neut % (Auto) 79.2 Lymph % (Auto) 9.0 Reagan % (Auto) 10.2 Eos % (Auto) 1.4 Baso % (Auto) 0.2 Nucleat RBC Rel Count 0.1 Neut # (Auto) 6.3 Lymph # (Auto) 0.7 L Reagan # (Auto) 0.8 Eos # (Auto) 0.1 Baso # (Auto) 0.0 PHA Creatinine Clear 20.47 Sodium 135 L Potassium 4.1 Chloride 97 L Carbon Dioxide 32.0 H Anion Gap 10.1 BUN 81 H Creatinine 3.34 H Est GFR (CKD-EPI) 17.677 Glucose 135 H Calcium 7.9 L Magnesium 2.5 Blood Type O Positive Antibody Screen Negative Crossmatch (AHG) See Detail Assessment/Plan (1) Femoral neck fracture: (2) Acute on chronic anemia: (3) Acute kidney injury superimposed on CKD: (4) Aspiration pneumonia: (5) Impaired mobility and activities of daily living: (6) A-fib: (7) Coronary artery disease: (8) Pacemaker: (9) Pulmonary hypertension: (10) Type 2 diabetes mellitus with hyperglycemia: Qualifiers: Diabetes mellitus mcc insulin use: without mcc use Qualified Code(s): E11.65 - Type 2 diabetes mellitus with hyperglycemia (11) Chronic HFrEF (heart failure with reduced ejection fraction): Plan This is an 84 y/o male with significant cardiac comorbidities as outlined above who presented after a fall and was found to have a right hip fracture for which he he is s/p right hemiarthroplasty. Post operative course complicated by acute on chronic anemia requiring blood transfusion as well as WICHO. -Patient at this time is not medically appropriate for DC to rehab. Need to see that his Hgb has improved and stabilized as well as his kidney function -In addition, the patient is not tolerating much therapy at this time. In his current state, he would not be appropriate for IRF given that he would not be able to tolerate. -Myself or Dr. Black will evaluate again tomorrow to see how he is doing medically and to see if improvements in anemia as well as pain control result insome improvements in his functional capabilities. Patient was personally seen by me, Dr. Bedolla, on the day of encounter, reviewed the history and the relevant portions of the chart, including current orders, allied health and furniture sales consultant notes, labs/imaging and performed mckenna elements of exam and I formulated the plan of care and facilitated the medical decision making. I completed a substantive portion of this encounter, the medical decision makingportion of this note in its entirety, including Allied health note review, nursing note review, furniture sales consultant note review, discussion with nursing and case management, and more than 50% of my time was spent on counseling and coordinationof care, time spent 50 minutes Documented By: Clyde Bedolla MD [id number] Signed By: <Electronically signed by Clyde Bedolla MD> 12/25/24 1408 [facility] Work Phone: 1(308) 474-275503-12-2025 Progress note Author Emile Reynolds [facility] Note Date/Time December 25, 2024 12: 17pm [facility] [address] [place] [address] Hospitalist Progress Note Signed Patient: Delano Ren MR#: [id number] : 1940 Acct:[id number] Age/Sex: 84 / M Adm Date: 5 Loc: 4N Room: 2T7064-6 Type: ADM IN Attending Dr: Emile Reynolds DO Copies to: ~ Date of Service: 12/25/2024 Subjective Subjective Narrative: Seen and evaluated this morning, he is currently sitting up in the chair he doesendorse having a little bit of worsening leg pain when compared to yesterday. He turned the oxygen off this morning while he was shaving and it was still not back on when I was in the room. I did place pulse ox back on him and he was in the low 80s. He did look very comfortable like this. He was not showing any signs of respiratory distress whatsoever. I did turn his nasal cannula back onto 3 L. I reviewed his old office notes and appears he is usually saturating in the mid 90s on room air, I was beginning to wonder if with his chronic problems to COPD,CHF, and pulm hypertension if he had required oxygen at baseline and just did not know it though does not appear so. Exam Physical Exam Vital Signs: Temp Pulse Resp BP Pulse Ox O2 Del Method O2 Flow Rate 97.8 F 66 15 119/56 L 95 Nasal Cannula 3 12/25/24 11:57 12/25/24 11:57 12/25/24 11:57 12/25/24 11:57 12/25/24 11:57 12/25/24 07:52 12/25/24 07:52 FiO2 40 12/24/24 03:09 Narrative: General: Awake alert, no acute distress HEENT: head atraumatic, normocephalic, moist mucous membranes Neck: supple no masses, no lymphadenopathy CVS: regular rate and rhythm, no murmurs or gallops Respiratory: clear to auscultation bilaterally, no wheezing or crackles, symmetric expansion GI: soft, nondistended, nontender, positive bowel sounds with no organomegaly Extremity: moves all extremities, no restrictions of movements, no calf tenderness, no edema Neuro: AOx3, CN II-VII intact. Moves all extremities in all planes of motion. Skin: dry, intact no rashes or lesions Objective Lab Results 12/25/24 06:00 12/25/24 06:00 Meds Allergies and Active Meds Allergies simvastatin Allergy (Unknown, Verified 12/19/24 08:50) Unknown Reaction Vgrnytp-IIV-YjO Reductase Inhibitor (Knxrhsn-Bgk-Aly Reductase Inhibitor) Allergy (Unknown, Verified 12/19/24 08:50) Muscle Pain tramadol Allergy (Verified 12/19/24 08:50) Itching niacin ER Allergy (Uncoded 08/22/24 08:31) itching Active Meds: Active Medications Generic Name Dose Route Start Last Admin Trade Name Freq PRN Reason Stop Dose Admin Acetaminophen 650 mg 12/21/24 22:30 12/23/24 07:59 Acetaminophen 325 Mg Tablet PO 12/21/25 22:29 650 mg Q4H PRN Administration Pain Scale 1 - 5 Acetaminophen 1,000 mg 12/22/24 11:12 12/25/24 07:44 Acetaminophen 500 Mg Tablet PO 12/22/25 11:11 1,000 mg Q8H PRN Administration Fever or Pain Albuterol 2.5 mg 12/21/24 22:30 Albuterol Neb 2.5 Mg/3 Ml Vial.Neb INHALATION 12/21/25 22:29 Q2H PRN Shortness Of Breath Allopurinol 100 mg 12/22/24 09:00 12/25/24 08:41 Allopurinol 100 Mg Tablet PO 12/22/25 08:59 100 mg DAILY FERN Administration Amiodarone HCl 200 mg 12/22/24 09:00 12/25/24 08:40 Amiodarone 200 Mg Tablet PO 12/22/25 08:59 200 mg DAILY FERN Administration Amlodipine Besylate 10 mg 12/22/24 09:00 12/24/24 08:38 Amlodipine 10 Mg Tablet PO 12/22/25 08:59 Not Given DAILY FERN Amoxicillin/Clavulanate Potassium 1 tab 12/24/24 21:00 12/25/24 08:40 Amoxicillin/Clav 500-125 Mg Tablet PO 12/28/24 20:59 1 tab BID FERN Administration Ascorbic Acid 500 mg 12/23/24 09:00 12/25/24 08:41 Ascorbic Acid 500 Mg Tablet PO 12/23/25 08:59 500 mg DAILY FERN Administration Azithromycin 500 mg 12/24/24 16:00 12/24/24 16:44 Azithromycin 250 Mg Tablet PO 12/28/24 23:00 500 mg Q24H FERN Administration Calcium Carbonate 1 tab 12/22/24 12:00 12/25/24 11:33 Calcium Carbonate/Vitamin D3 500 Mg/200 Unit Tablet PO 12/22/25 11:59 1 tab TID.WITH.MEALS FERN Administration Diphenhydramine HCl 25 mg 12/23/24 13:13 Diphenhydramine 25 Mg Capsule PO 12/23/25 13:12 Q6H PRN Itching Docusate Sodium 200 mg 12/21/24 22:30 Docusate 100 Mg Capsule PO 12/21/25 22:29 BID PRN Constipation Docusate Sodium 100 mg 12/23/24 21:00 12/25/24 08:41 Docusate 100 Mg Capsule PO 12/23/25 20:59 100 mg BID FERN Administration Fluticasone/Umeclidinium/Vilanterol 1 puff 12/23/24 09:00 12/25/24 08:42 Fluticas/Umeclidin/Vilanter 200-62.5-25 Mcg 28 Puff Inhaler *Nf* INHALATION 12/23/25 08:59 1 puff DAILY FERN Administration Furosemide 80 mg 12/25/24 10:15 12/25/24 11:33 Furosemide 80 Mg Tablet PO 12/25/25 10:14 80 mg DAILY FERN Administration Hydralazine HCl 10 mg 12/21/24 22:30 Hydralazine 20 Mg/Ml Vial IV-PUSH 12/21/25 22:29 Q4H PRN if SBP > 185 Hydralazine HCl 100 mg 12/22/24 09:00 12/25/24 08:40 Hydralazine 50 Mg Tablet PO 12/22/25 08:59 100 mg TID FERN Administration Hydromorphone HCl 0.25 mg 12/21/24 22:30 12/22/24 09:42 Hydromorphone 1 Mg/Ml Syringe IV-PUSH 0.25 mg Q4H PRN Administration pain Hydromorphone HCl 0.5 mg 12/22/24 11:12 12/23/24 08:45 Hydromorphone 0.5 Mg/0.5 Ml Syringe IV-PUSH 0.5 mg Q2H PRN Administration Pain Scale 1 - 3 Hydromorphone HCl 1 mg 12/22/24 11:12 Hydromorphone 1 Mg/Ml Syringe IV-PUSH Q2H PRN Pain Scale 4 - 6 Sodium Chloride 100 mls @ 20 mls/hr 12/25/24 10:45 0.9% Sodium Chloride 100 Ml IV 12/26/24 10:44 PROTOCOL PRN BLOOD TRANSFUSION Isosorbide Dinitrate 10 mg 12/22/24 09:00 12/25/24 08:41 Isosorbide Dinitrate 10 Mg Tablet PO 12/22/25 08:59 10 mg TID FERN Administration Lidocaine HCl 0.1 ml 12/23/24 08:00 Lidocaine 1% 50 Ml Vial INTRADERMA PREOP PRN Venipuncture x 1 Dose Magnesium Hydroxide 30 ml 12/22/24 11:12 Magnesium Hydroxide Susp 30 Ml Udc PO 12/22/25 11:11 DAILY PRN Constipation Metoprolol Succinate 100 mg 12/22/24 09:00 12/25/24 08:40 Metoprolol Succinate 100 Mg Tab.Er.24h PO 12/22/25 08:59 100 mg DAILY FERN Administration Multivitamins 1 tab 12/23/24 09:00 12/25/24 08:41 Multivitamin 1 Tab Tablet PO 12/23/25 08:59 1 tab DAILY FERN Administration Ondansetron HCl 4 mg 12/22/24 11:12 12/23/24 08:58 Ondansetron 4 Mg/2 Ml Vial IV-PUSH 12/22/25 11:11 4 mg Q6H PRN Administration Nausea And Vomiting Oxycodone HCl 5 mg 12/22/24 11:12 12/25/24 08:41 Oxycodone Ir 5 Mg Tablet PO 5 mg Q4HR PRN Administration Pain Scale 1 - 5 Oxycodone HCl 10 mg 12/22/24 11:12 Oxycodone Ir 5 Mg Tablet PO Q4HR PRN Pain Scale 6 - 10 Polyethylene Glycol 17 gm 12/22/24 09:00 12/25/24 08:39 Polyethylene Glycol 3350 17 Gm Powd.Pack PO 12/22/25 08:59 17 gm DAILY FERN Administration Sennosides 17.2 mg 12/22/24 09:00 12/25/24 08:39 Sennosides 8.6 Mg Tablet PO 12/22/25 08:59 17.2 mg BID FERN Administration Sodium Chloride 0 ml 12/22/24 11:12 Sodium Chloride 0.9 % 10 Ml Syringe IV-PUSH 12/22/25 11:11 PRN PRN Flush A&P - Hospitalist Assessment/Plan (1) Femoral neck fracture: Plan: ? Status post HERRERA on right hip on December 23, 2024 ? Orthopedic surgery to manage ? Pain control as ordered ?Assuming to resume Eliquis tomorrow morning (2) Stage 4 chronic kidney disease: Plan: Kidney function is stable, creatinine did trend up today ? Will consult nephrology ? Resume his home dose of Lasix today (3) Type 2 diabetes mellitus with hyperglycemia: Plan: ? A diabetic diet, his glucose is within appropriate ranges on morning BMP (4) Paroxysmal atrial fibrillation: Plan: ? Continue Eliquis per orthopedics discretion (5) Aspiration pneumonia: Plan: Continue switch Unasyn to Augmentin and continue Zithromycin for a total of 5- day treatment ? Patient is already on Trelegy therapy with our hospital substitution for the equivalent dose ? There is absolutely no wheezing whatsoever on his physical exam, no place for DuoNebs at this point in time ? Ideally his hypoxia will increase now that we have resumed his Lasix since hisblood pressure allows it. (6) Acute on chronic anemia: Plan: ? Also component of blood loss anemia secondary to surgery, his baseline is 12 and this morning he is 7.2. He will receive 1 unit PRBC today. Plan ? DVT prophylaxis addressed ? Diabetic diet ? Full code Discharge pending inpatient rehab Documented By: Emile Reynolds DO 12/25/24 1213 Signed By: <Electronically signed by Emile Reynolds DO> 12/25/24 [facility] Work Phone: 1(320) 474-483603-12-2025 [place] [address] Physiatry (Rehab) Consult Note Signed Patient: Delano Ren MR#: [id number] : 1940 Acct:[id number] Age/Sex: 84 / M Adm Date: 5 Loc: Room: [address] [place] [address] Type: ADM IN Attending Dr: Emile Reynolds DO Copies to: DO Clyde Lauren MD Shawn J Warner, DO~ HPI Consult Date: 12/25/24 Requesting Physician: Emile Reynolds DO Primary Care Provider: Yas Linda DO Consult Narrative Reason for consult: Evaluation for inpatient rehab HPI: Mr. 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 He is now s/p right hip hemiarthroplasty. WBAT. The patient is IND at baseline. Lives with spouse. Seen today in consultation for inpatient rehab. The patient admits to hip pain on the right. He also was noted to be anemic with worsening of kidney function for which he is receiving PRBCs. The patient has worked with therapy but is very debilitated at this time. Only able to ambulate about 3' but at a Max x2 level of assistance. Bed mobility and transfers also essentially dependent. Family requesting that the patient come toIRF. I did discuss that I would need to see that he is tolerating therapy betterand that he is medically improving prior to IRF approval. Review of Systems Review of Systems All other systems reviewed & are negative unless noted below or in HPI [facility] Medical History (Updated 12/24/24 @ 15:28 by Zahida Flowers MD) Former smoker quit at age ~44 COPD (chronic obstructive pulmonary disease) cpap use Screening PSA (prostate specific antigen) PSA: 0.91 - 07/2024 Chronic bronchitis, simple Chronic HFrEF (heart failure with reduced ejection fraction) Echo: LVEF 25%, RV reduced function, RVSP 61, SANJAY, mod MR - 02/2023 Type 2 diabetes mellitus with hyperglycemia Thyrotoxicosis Stage 4 chronic kidney disease Pulmonary hypertension Psoas abscess Primary hypertension Paroxysmal atrial fibrillation Ablation - 10/2019 Cardioversion - 10/2024 Obstructive sleep apnea Nonischemic dilated cardiomyopathy LHC: nonobstructive coronary disease - 2015 s/p ICD - 10/2019, BiV ICD - 05/2023 Lumbar spondylosis 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 Hypokalemia Hyperuricemia Hypertensive chronic kidney disease with stage 1 through stage 4 chronic kidney disease, or unspecified chronic kidney disease Hyperlipidemia type II Complete heart block Chronic venous insufficiency Hyperthyroidism Hyperlipidemia Chicken pox Arthritis Anemia Wears hearing aid in left ear Colon cancer Hemicolectomy 08/2021, Surveillance colonoscopy 07/2022 (repeat 2 years) Hypercholesteremia Coronary artery disease A-fib hx ablation Surgical History Hx of tonsillectomy Hx of cardiac catheterization (~2015) Biventricular ICD (implantable cardioverter-defibrillator) in place (~05/2023) H/O cardiac radiofrequency ablation H/O right hemicolectomy (~08/2021) H/O colonoscopy (~08/2024) 07/2022, 08/2024 w/ plan to repeat 2 years History of right heart catheterization (RHC) History of left knee replacement Pacemaker Family History Father CHF (congestive heart failure) Heart disease Mother Diabetes mellitus, type 2 Heart disease Brother Cancer Son Blackfan Glo anemia Social History Smoking Status: Never smoker Tobacco Type: cigarettes Substance Use Type: None Meds Medications and Allergies Allergies simvastatin Allergy (Unknown, Verified 12/19/24 08:50) Unknown Reaction Kqnqrhe-TCY-TiB Reductase Inhibitor (Kwkxmlt-Xsr-Evx Reductase Inhibitor) Allergy (Unknown, Verified 12/19/24 08:50) Muscle Pain tramadol Allergy (Verified 12/19/24 08:50) Itching niacin ER Allergy (Uncoded 08/22/24 08:31) itching Home Medications hydralazine 100 mg tablet 100 mg PO TID 30 days #90 tabs 06/09/21 [Rx Confirmed 12/21/24] niacin 500 mg tablet 500 mg PO DAILY 30 days #30 tabs 06/09/21 [Rx Confirmed 12/21/24] amlodipine 10 mg tablet 10 mg PO DAILY 07/21/22 [History Confirmed 12/21/24] isosorbide dinitrate 10 mg tablet 10 mg PO TID 07/21/22 [History Confirmed 12/21/24] apixaban 2.5 mg tablet (Eliquis) 2.5 mg PO BID 03/03/23 [History Confirmed 12/21/24] blood sugar diagnostic (Contour Next Test Strips) 12/15/23 [History Confirmed 12/19/24] cholecalciferol (vitamin D3) 125 mcg (5,000 unit) tablet 5,000 unit PO DAILY 12/15/23 [History Confirmed 12/21/24] metoprolol succinate 100 mg tablet,extended release 24 hr 100 mg PO DAILY 12/15/23 [History Confirmed 12/21/24] furosemide 80 mg tablet 80 mg PO DAILY 30 days #30 tabs 12/18/23 [Rx Confirmed 12/21/24] fluticasone fur. 200 mcg-umeclid 62.5 mcg-vilant 25 mcg inhalat.powder (Trelegy Ellipta) 1 inh inhalation DAILY 90 days #90 ea 02/15/24 [Rx Confirmed 12/21/24] ezetimibe 10 mg tablet 10 mg PO DAILY 03/01/24 [History Confirmed 12/21/24] allopurinol 100 mg tablet 100 mg PO DAILY 90 days #90 tabs 06/05/24 [Rx Confirmed 12/21/24] acetaminophen 500 mg tablet (Acetaminophen Extra Strength) 1,000 mg PO DIRECTED PRN pain 08/12/24 [History Confirmed 12/21/24] losartan 25 mg tablet 25 mg PO DAILY 08/12/24 [History Confirmed 12/21/24] potassium chloride 10 mEq tablet,extended release(part/cryst) See Rx Instructions .Route .COMPLEX #90 tabs 10/15/24 [Rx Confirmed 12/21/24] amiodarone 200 mg tablet 200 mg PO DAILY 11/08/24 [History Confirmed 12/21/24] Exam Physical Exam Vital Signs: Temp Pulse Resp BP Pulse Ox O2 Del Method O2 Flow Rate 97.8 F 66 15 119/56 L 95 Nasal Cannula 3 12/25/24 11:57 12/25/24 11:57 12/25/24 11:57 12/25/24 11:57 12/25/24 11:57 12/25/24 08:00 12/25/24 08:00 FiO2 40 12/24/24 03:09 Narrative: NAD. Lying in bed Extremities well perfused No respiratory distress Abdomen soft, non distended, non tender NATALYA. RLE strength limited by pain Speech is normal Results - Phys. Rehab Labs Labs: Laboratory Results - last 24 hr 12/23/24 12/25/24 04:20 06:00 Corrected WBC 8.0 Uncorrected WBC Count 8.0 RBC 2.19 L Hgb 7.2 L Hct 20.9 L MCV 95.3 MCH 32.8 MCHC 34.4 RDW 14.6 Plt Count 137 L MPV 8.0 Neut % (Auto) 79.2 Lymph % (Auto) 9.0 Reagan % (Auto) 10.2 Eos % (Auto) 1.4 Baso % (Auto) 0.2 Nucleat RBC Rel Count 0.1 Neut # (Auto) 6.3 Lymph # (Auto) 0.7 L Reagan # (Auto) 0.8 Eos # (Auto) 0.1 Baso # (Auto) 0.0 PHA Creatinine Clear 20.47 Sodium 135 L Potassium 4.1 Chloride 97 L Carbon Dioxide 32.0 H Anion Gap 10.1 BUN 81 H Creatinine 3.34 H Est GFR (CKD-EPI) 17.677 Glucose 135 H Calcium 7.9 L Magnesium 2.5 Blood Type O Positive Antibody Screen Negative Crossmatch (AHG) See Detail Assessment/Plan (1) Femoral neck fracture: (2) Acute on chronic anemia: (3) Acute kidney injury superimposed on CKD: (4) Aspiration pneumonia: (5) Impaired mobility and activities of daily living: (6) A-fib: (7) Coronary artery disease: (8) Pacemaker: (9) Pulmonary hypertension: (10) Type 2 diabetes mellitus with hyperglycemia: Qualifiers: Diabetes mellitus middle or intermediate school 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 Post operative course complicated by acute on chronic anemia requiring blood transfusion as well as WICHO. -Patient at this time is not medically appropriate for DC to rehab. Need to see that his Hgb has improved and stabilized as well as his kidney function -In addition, the patient is not tolerating much therapy at this time. In his current state, he would not be appropriate for IRF given that he would not be able to tolerate. -Myself or Dr. Black will evaluate again tomorrow to see how he is doing medically and to see if improvements in anemia as well as pain control result insome improvements in his functional capabilities. Patient was personally seen by me, Dr. Bedolla, on the day of encounter, reviewed the history and the relevant portions of the chart, including current orders, allied health and furniture sales consultant notes, labs/imaging and performed mckenna elements of exam and I formulated the plan of care and facilitated the medical decision making. I completed a substantive portion of this encounter, the medical decision makingportion of this note in its entirety, including Allied health note review, nursing note review, furniture sales consultant note review,discussion with nursing and case management, and more than 50% of my time was spent on counseling and coordinationof care, time spent 50 minutes Documented By: Clyde Bedolla MD [id number] Signed By: 12/25/24 1407 [facility]03-12-2025 Progress note Author Zahida Flowers [facility] Note Date/Time December 25, 2024 12: 04pm [facility] [facility] [address] [place] [address] Nephrology Progress Note Signed Patient: Delano Ren MR#: [id number] : 1940 Acct:[id number] Age/Sex: 84 / M Adm Date: 5 Loc: Room: [address] [place] [address] Type: ADM IN Attending Dr: Emile Reynolds DO Copies to: ~ Date of Service: 12/25/2024 Subjective Subjective Narrative: This is a 84-year-old male with a medical history of DM, HTN, A-fib, CKD, HFrEF,HLD and anemia was presented to the emergency room after mechanical fall. Patient on evaluation in the emergency room was found to have right hip fracture. Orthopedic was consulted and patient was taken to the OR on 12/23/2024for surgery. On presentation his serum creatinine was 3.2 mg/dL which went downto 2.6 mg/dL with IV fluid resuscitation and holding his Lasix. Patient postoperatively was found to have a relative hypotension and his serum creatinine this morning went up to 3.4 mg/dL. Patient has a longstanding hypertension and was taking multiple antihypertensive medication including amlodipine, hydralazine, metoprolol, Isordil and Lasix. His hospital course wasalso complicated by pneumonia and was started on antibiotics for aspiration pneumonia. Patient also was found to have a worsening anemia his hemoglobin dropped from his baseline 11.7 on presentation to 8.7 g/dL. Nephrology is consulted for WICHO on CKD management. Patient was seen and examined bedside. Hereported that he has CKD and follows with Dr. Syed for CKD care. Interim history Patient was seen and examined at bedside. He reported to have a pain at the surgical site but controlled with the pain medications. Denies any chest pain palpitation cough nausea vomiting diarrhea and shortness of breath Exam Physical Exam Vital Signs: Temp Pulse Resp BP Pulse Ox O2 Del Method O2 Flow Rate 98.0 F 72 15 104/54 L 93 L Nasal Cannula 3 12/25/24 11:27 12/25/24 11:27 12/25/24 11:27 12/25/24 11:27 12/25/24 11:27 12/25/24 07:52 12/25/24 07:52 FiO2 40 12/24/24 03:09 Narrative: General: Appears comfortable and not in distress Heart: S1-S2, no rub Lung: Bilateral air entry, no wheezing or crackles Abdomen: Soft, positive bowel sounds Extremities: No edema, no cyanosis Head: Atraumatic, normocephalic Ear: No gross hearing Deficit or external ear redness Eyes: No pallor or redness Neck: No JVD or visible mass Skin: No rashes , warm to touch K[employer] INSPECTOR: Awake,Alert, following simple command Musculoskeletal: No swelling or limitation of movement of the large joints Psychiatric: Cooperative, normal mood and affect Objective Intake and Output I&O: Intake & Output 12/23/24 12/23/24 12/24/24 12/25/24 00:59 23:59 23:59 23:59 Intake Total 2310 / 2310 2800 / 2800 2300 / 2300 Output Total 2000 / 1999 1100 / 1100 1150 / 1150 Balance 310 / 310 1700 / 1700 1150 / 1150 Weight 97.6 kg 99.2 kg Meds and Allergies Meds: Active Medications Acetaminophen (Acetaminophen 325 Mg Tablet) 650 mg PO Q4H PRN PRN Reason: Pain Scale 1 - 5 Stop: 12/21/25 22:29 Last Admin: 12/23/24 07:59 Dose: 650 mg Acetaminophen (Acetaminophen 500 Mg Tablet) 1,000 mg PO Q8H PRN PRN Reason: Fever or Pain Stop: 12/22/25 11:11 Last Admin: 12/25/24 07:44 Dose: 1,000 mg Albuterol (Albuterol Neb 2.5 Mg/3 Ml Vial.Neb) 2.5 mg INHALATION Q2H PRN PRN Reason: Shortness Of Breath Stop: 12/21/25 22:29 Allopurinol (Allopurinol 100 Mg Tablet) 100 mg PO DAILY REPLACED BY [facility] Stop: 12/22/25 08:59 Last Admin: 12/25/24 08:41 Dose: 100 mg Amiodarone HCl (Amiodarone 200 Mg Tablet) 200 mg PO DAILY REPLACED BY [facility] Stop: 12/22/25 08:59 Last Admin: 12/25/24 08:40 Dose: 200 mg Amlodipine Besylate (Amlodipine 10 Mg Tablet) 10 mg PO DAILY FERN Stop: 12/22/25 08:59 Last Admin: 12/24/24 08:38 Dose: Not Given Amoxicillin/Clavulanate Potassium (Amoxicillin/Clav 500-125 Mg Tablet) 1 tab POBID FERN Stop: 12/28/24 20:59 Last Admin: 12/25/24 08:40 Dose: 1 tab Ascorbic Acid (Ascorbic Acid 500 Mg Tablet) 500 mg PO DAILY FERN Stop: 12/23/25 08:59 Last Admin: 12/25/24 08:41 Dose: 500 mg Azithromycin (Azithromycin 250 Mg Tablet) 500 mg PO Q24H FERN Stop: 12/28/24 23:00 Last Admin: 12/24/24 16:44 Dose: 500 mg Calcium Carbonate (Calcium Carbonate/Vitamin D3 500 Mg/200 Unit Tablet) 1 tab PO TID.WITH.MEALS FERN Stop: 12/22/25 11:59 Last Admin: 12/25/24 11:33 Dose: 1 tab Diphenhydramine HCl (Diphenhydramine 25 Mg Capsule) 25 mg PO Q6H PRN PRN Reason: Itching Stop: 12/23/25 13:12 Docusate Sodium (Docusate 100 Mg Capsule) 200 mg PO BID PRN PRN Reason: Constipation Stop: 12/21/25 22:29 Docusate Sodium (Docusate 100 Mg Capsule) 100 mg PO BID FERN Stop: 12/23/25 20:59 Last Admin: 12/25/24 08:41 Dose: 100 mg Fluticasone/Umeclidinium/Vilanterol (Fluticas/Umeclidin/Vilanter 200-62.5-25 Mcg28 Puff Inhaler *Nf*) 1 puff INHALATION DAILY FERN Stop: 12/23/25 08:59 Last Admin: 12/25/24 08:42 Dose: 1 puff Furosemide (Furosemide 80 Mg Tablet) 80 mg PO DAILY REPLACED BY [facility] Stop: 12/25/25 10:14 Last Admin: 12/25/24 11:33 Dose: 80 mg Hydralazine HCl (Hydralazine 20 Mg/Ml Vial) 10 mg IV-PUSH Q4H PRN PRN Reason: if SBP > 185 Stop: 12/21/25 22:29 Hydralazine HCl (Hydralazine 50 Mg Tablet) 100 mg PO TID REPLACED BY [facility] Stop: 12/22/25 08:59 Last Admin: 12/25/24 08:40 Dose: 100 mg Hydromorphone HCl (Hydromorphone 1 Mg/Ml Syringe) 0.25 mg IV-PUSH Q4H PRN PRN Reason: pain Last Admin: 12/22/24 09:42 Dose: 0.25 mg Hydromorphone HCl (Hydromorphone 0.5 Mg/0.5 Ml Syringe) 0.5 mg IV-PUSH Q2H PRN PRN Reason: Pain Scale 1 - 3 Last Admin: 12/23/24 08:45 Dose: 0.5 mg Hydromorphone HCl (Hydromorphone 1 Mg/Ml Syringe) 1 mg IV-PUSH Q2H PRN PRN Reason: Pain Scale 4 - 6 Sodium Chloride (0.9% Sodium Chloride 100 Ml) 100 mls @ 20 mls/hr IV PROTOCOL PRN PRN Reason: BLOOD TRANSFUSION Stop: 12/26/24 10:44 Isosorbide Dinitrate (Isosorbide Dinitrate 10 Mg Tablet) 10 mg PO TID REPLACED BY [facility] Stop: 12/22/25 08:59 Last Admin: 12/25/24 08:41 Dose: 10 mg Lidocaine HCl (Lidocaine 1% 50 Ml Vial) 0.1 ml INTRADERMA PREOP PRN PRN Reason: Venipuncture x 1 Dose Magnesium Hydroxide (Magnesium Hydroxide Susp 30 Ml Udc) 30 ml PO DAILY PRN PRN Reason: Constipation Stop: 12/22/25 11:11 Metoprolol Succinate (Metoprolol Succinate 100 Mg Tab.Er.24h) 100 mg PO DAILY REPLACED BY [facility] Stop: 12/22/25 08:59 Last Admin: 12/25/24 08:40 Dose: 100 mg Multivitamins (Multivitamin 1 Tab Tablet) 1 tab PO DAILY REPLACED BY [facility] Stop: 12/23/25 08:59 Last Admin: 12/25/24 08:41 Dose: 1 tab Ondansetron HCl (Ondansetron 4 Mg/2 Ml Vial) 4 mg IV-PUSH Q6H PRN PRN Reason: Nausea And Vomiting Stop: 12/22/25 11:11 Last Admin: 12/23/24 08:58 Dose: 4 mg Oxycodone HCl (Oxycodone Ir 5 Mg Tablet) 5 mg PO Q4HR PRN PRN Reason: Pain Scale 1 - 5 Last Admin: 12/25/24 08:41 Dose: 5 mg Oxycodone HCl (Oxycodone Ir 5 Mg Tablet) 10 mg PO Q4HR PRN PRN Reason: Pain Scale 6 - 10 Polyethylene Glycol (Polyethylene Glycol 3350 17 Gm Powd.Pack) 17 gm PO DAILY FERN Stop: 12/22/25 08:59 Last Admin: 12/25/24 08:39 Dose: 17 gm Sennosides (Sennosides 8.6 Mg Tablet) 17.2 mg PO BID FERN Stop: 12/22/25 08:59 Last Admin: 12/25/24 08:39 Dose: 17.2 mg Sodium Chloride (Sodium Chloride 0.9 % 10 Ml Syringe) 0 ml IV-PUSH PRN PRN PRN Reason: Flush Stop: 12/22/25 11:11 Allergies simvastatin Allergy (Unknown, Verified 12/19/24 08:50) Unknown Reaction Hswkxhe-JLT-OmZ Reductase Inhibitor (Lazqkpa-Epk-Wei Reductase Inhibitor) Allergy (Unknown, Verified 12/19/24 08:50) Muscle Pain tramadol Allergy (Verified 12/19/24 08:50) Itching niacin ER Allergy (Uncoded 08/22/24 08:31) itching Results - Nephrology Labs 12/25/24 06:00 12/25/24 06:00 Labs: 12/25/24 06:00 BUN 81 H Creatinine 3.34 H Radiology Impressions Impressions - last 24 hours: Any impression(s) listed above is documentation that was entered by the reading physician into a diagnostic report(s) for Delano Ren. I have reviewed the report(s) and am incorporating any findings in the treatment plan of this patient where applicable. A&P - Nephrology Assessment/Plan (1) Acute kidney injury superimposed on CKD: Assessment/Problem Details: He has WICHO on CKD likely due to the relative hypotension and postoperative bloodloss anemia. (2) Stage 4 chronic kidney disease: Assessment/Problem Details: He has a longstanding CKD due to the DM and HTN with baseline serum creatinine around 2.6-3 mg/dL. (3) Hypertensive chronic kidney disease with stage 1 through stage 4 chronic kidney disease, or unspecified chronic kidney disease: Assessment/Problem Details: His blood pressures has been running relatively low. He is on multiple antihypertensive medication including amlodipine, hydralazine, furosemide, metoprolol, Isordil. (4) Acute on chronic anemia: Assessment/Problem Details: He has acute on chronic anemia due to the blood loss anemia. (5) Aspiration pneumonia: Assessment/Problem Details: Patient was found to have aspiration pneumonia. Currently on antibiotics. (6) Chronic HFrEF (heart failure with reduced ejection fraction): Assessment/Problem Details: He appears to be well compensated. He was taking Lasix at home. (7) Type 2 diabetes mellitus with hyperglycemia: Assessment/Problem Details: He has vpz-swdcakr-gyqonpdzp type 2 diabetes mellitus currently on diet control. Plan * No need for emergent hemodialysis now. Will continue to assess its needs on regular basis. * Continue to hold hold amlodipine * Will resume furosemide 80 mg daily * Continue antibiotics for pneumonia as per the primary team. * Will continue hydralazine, Isordil and metoprolol. * Monitor H&H and transfuse as needed to keep the hemoglobin greater than 8 g/dL. * Check renal function daily and monitor for output * Case was discussed with the patient family at the bedside. Documented By: Zahida Flowers MD 12/25/24 1150 Signed By: <Electronically signed by Zahida Flowers MD> 12/25/24 1208 [facility] Work Phone: [phone]) 795-657203-12-2025 Progress note Author Walker Soria [facility] Note Date/Time December 25, 2024 10: 25am [facility] [address] [place] [address] Orthopedic Progress Note Signed Patient: Delano Ren MR#: [id number] : 1940 Acct:[id number] Age/Sex: 84 / M Adm Date: 5 Loc: 4N Room: 5I5134-5 Type: ADM IN Attending Dr: Emile Reynolds DO Copies to: ~ Date of Service: 12/25/2024 Exam Physical Exam Vital Signs: Temp Pulse Resp BP Pulse Ox O2 Del Method O2 Flow Rate 97.8 F 82 16 154/89 H 95 Nasal Cannula 3 12/25/24 07:50 12/25/24 07:50 12/25/24 07:50 12/25/24 07:50 12/25/24 07:50 12/25/24 07:52 12/25/24 07:52 FiO2 40 12/24/24 03:09 Narrative: Saturation of right hip dressing. No active bleeding visible from the wound. Moderate swelling right thigh. Moving ankle and toes well. Hemoglobin 7.2 Objective Labs Labs: Laboratory Results - last 24 hr 12/25/24 06:00 Corrected WBC 8.0 Uncorrected WBC Count 8.0 RBC 2.19 L Hgb 7.2 L Hct 20.9 L MCV 95.3 MCH 32.8 MCHC 34.4 RDW 14.6 Plt Count 137 L MPV 8.0 Neut % (Auto) 79.2 Lymph % (Auto) 9.0 Reagan % (Auto) 10.2 Eos % (Auto) 1.4 Baso % (Auto) 0.2 Nucleat RBC Rel Count 0.1 Neut # (Auto) 6.3 Lymph # (Auto) 0.7 L Reagan # (Auto) 0.8 Eos # (Auto) 0.1 Baso # (Auto) 0.0 PHA Creatinine Clear 20.47 Sodium 135 L Potassium 4.1 Chloride 97 L Carbon Dioxide 32.0 H Anion Gap 10.1 BUN 81 H Creatinine 3.34 H Est GFR (CKD-EPI) 17.677 Glucose 135 H Calcium 7.9 L Magnesium 2.5 Assessment / Plan Assessment and plan (1) Femoral neck fracture: Code(s): S72.009A - Fracture of unspecified part of neck of unspecified femur, initial encounter for closed fracture Plan Will plan on transfusion 2 units packed red cells. Hopeful discharge to rehab later today or tomorrow. Documented By: Walker Soria MD 12/25/24 1024 Signed By: <Electronically signed by MD Walker Soria> 12/25/24 1023 [facility] Work Phone: [phone] 618-886903-12-2025 [place] [id number] Hospitalist Progress Note Signed Patient: Delano Ren MR#: [id number] : 1940 Acct:[id number] Age/Sex: 84 / M Adm Date: 5 Loc: 4N Room: [id number] Type: ADM IN Attending Dr: Emile Reynolds DO Copies to: ~ Date of Service: 12/25/2024 Subjective Subjective Narrative: Seen and evaluated this morning, he is currently sitting up in the chair he doesendorse having a little bit of worsening leg pain when compared to yesterday. He turned the oxygen off this morning while he was shaving and it was still not back on when I was in the room. I did place pulse ox back on him and he was in the low 80s. He did look very comfortable like this. He was not showing any signs of respiratory distress whatsoever. I did turn his nasal cannula back onto 3 L. I reviewed his old office notes and appears he is usually saturating in the mid 90s on room air, I was beginning to wonder if with his chronic problems to COPD,CHF, and pulm hypertension if he had required oxygen at baseline and just did not know it though does not appear so. Exam Physical Exam Vital Signs: Temp Pulse Resp BP Pulse Ox O2 Del Method O2 Flow Rate 97.8 F 66 15 119/56 L 95 Nasal Cannula 3 12/25/24 11:57 12/25/24 11:57 12/25/24 11:57 12/25/24 11:57 12/25/24 11:57 12/25/24 07:52 12/25/24 07:52 FiO2 40 12/24/24 03:09 Narrative: General: Awake alert, no acute distress HEENT: head atraumatic, normocephalic, moist mucous membranes Neck: supple no masses, no lymphadenopathy CVS: regular rate and rhythm, no murmurs or gallops Respiratory: clear to auscultation bilaterally, no wheezing or crackles, symmetric expansion GI: soft, nondistended, nontender, positive bowel sounds with no organomegaly Extremity: moves all extremities, no restrictions of movements, no calf tenderness, no edema Neuro: AOx3, CN II-VII intact. Moves all extremities in all planes of motion. Skin: dry, intact no rashes or lesions Objective Lab Results 12/25/24 06:00 12/25/24 06:00 Meds Allergies and Active Meds Allergies simvastatin Allergy (Unknown, Verified 12/19/24 08:50) Unknown Reaction Dtxehsi-UVL-NaT Reductase Inhibitor (Trgaqhi-Ayu-Hid Reductase Inhibitor) Allergy (Unknown, Verified 12/19/24 08:50) Muscle Pain tramadol Allergy (Verified 12/19/24 08:50) Itching niacin ER Allergy (Uncoded 08/22/24 08:31) itching Active Meds: Active Medications Generic Name Dose Route Start Last Admin Trade Name Freq PRN Reason Stop Dose Admin Acetaminophen 650 mg 12/21/24 22:30 12/23/24 07:59 Acetaminophen 325 Mg Tablet PO 12/21/25 22:29 650 mg Q4H PRN Administration Pain Scale 1 - 5 Acetaminophen 1,000 mg 12/22/24 11:12 12/25/24 07:44 Acetaminophen 500 Mg Tablet PO 12/22/25 11:11 1,000 mg Q8H PRN Administration Fever or Pain Albuterol 2.5 mg 12/21/24 22:30 Albuterol Neb 2.5 Mg/3 Ml Vial.Neb INHALATION 12/21/25 22:29 Q2H PRN Shortness Of Breath Allopurinol 100 mg 12/22/24 09:00 12/25/24 08:41 Allopurinol 100 Mg Tablet PO 12/22/25 08:59 100 mg DAILY FERN Administration Amiodarone HCl 200 mg 12/22/24 09:00 12/25/24 08:40 Amiodarone 200 Mg Tablet PO 12/22/25 08:59 200 mg DAILY FERN Administration Amlodipine Besylate 10 mg 12/22/24 09:00 12/24/24 08:38 Amlodipine 10 Mg Tablet PO 12/22/25 08:59 Not Given DAILY FERN Amoxicillin/Clavulanate Potassium 1 tab 12/24/24 21:00 12/25/24 08:40 Amoxicillin/Clav 500-125 Mg Tablet PO 12/28/24 20:59 1 tab BID FERN Administration Ascorbic Acid 500 mg 12/23/24 09:00 12/25/24 08:41 Ascorbic Acid 500 Mg Tablet PO 12/23/25 08:59 500 mg DAILY FERN Administration Azithromycin 500 mg 12/24/24 16:00 12/24/24 16:44 Azithromycin 250 Mg Tablet PO 12/28/24 23:00 500 mg Q24H FERN Administration Calcium Carbonate 1 tab 12/22/24 12:00 12/25/24 11:33 Calcium Carbonate/Vitamin D3 500 Mg/200 Unit Tablet PO 12/22/25 11:59 1 tab TID.WITH.MEALS FERN Administration Diphenhydramine HCl 25 mg 12/23/24 13:13 Diphenhydramine 25 Mg Capsule PO 12/23/25 13:12 Q6H PRN Itching Docusate Sodium 200 mg 12/21/24 22:30 Docusate 100 Mg Capsule PO 12/21/25 22:29 BID PRN Constipation Docusate Sodium 100 mg 12/23/24 21:00 12/25/24 08:41 Docusate 100 Mg Capsule PO 12/23/25 20:59 100 mg BID FERN Administration Fluticasone/Umeclidinium/Vilanterol 1 puff 12/23/24 09:00 12/25/24 08:42 Fluticas/Umeclidin/Vilanter 200-62.5-25 Mcg 28 Puff Inhaler *Nf* INHALATION 12/23/25 08:59 1 puff DAILY FERN Administration Furosemide 80 mg 12/25/24 10:15 12/25/24 11:33 Furosemide 80 Mg Tablet PO 12/25/25 10:14 80 mg DAILY FERN Administration Hydralazine HCl 10 mg 12/21/24 22:30 Hydralazine 20 Mg/Ml Vial IV-PUSH 12/21/25 22:29 Q4H PRN if SBP > 185 Hydralazine HCl 100 mg 12/22/24 09:00 12/25/24 08:40 Hydralazine 50 Mg Tablet PO 12/22/25 08:59 100 mg TID FERN Administration Hydromorphone HCl 0.25 mg 12/21/24 22:30 12/22/24 09:42 Hydromorphone 1 Mg/Ml Syringe IV-PUSH 0.25 mg Q4H PRN Administration pain Hydromorphone HCl 0.5 mg 12/22/24 11:12 12/23/24 08:45 Hydromorphone 0.5 Mg/0.5 Ml Syringe IV-PUSH 0.5 mg Q2H PRN Administration Pain Scale 1 - 3 Hydromorphone HCl 1 mg 12/22/24 11:12 Hydromorphone 1 Mg/Ml Syringe IV-PUSH Q2H PRN Pain Scale 4 - 6 Sodium Chloride 100 mls @ 20 mls/hr 12/25/24 10:45 0.9% Sodium Chloride 100 Ml IV 12/26/24 10:44 PROTOCOL PRN BLOOD TRANSFUSION Isosorbide Dinitrate 10 mg 12/22/24 09:00 12/25/24 08:41 Isosorbide Dinitrate 10 Mg Tablet PO 12/22/25 08:59 10 mg TID FERN Administration Lidocaine HCl 0.1 ml 12/23/24 08:00 Lidocaine 1% 50 Ml Vial INTRADERMA PREOP PRN Venipuncture x 1 Dose Magnesium Hydroxide 30 ml 12/22/24 11:12 Magnesium Hydroxide Susp 30 Ml Udc PO 12/22/25 11:11 DAILY PRN Constipation Metoprolol Succinate 100 mg 12/22/24 09:00 12/25/24 08:40 Metoprolol Succinate 100 Mg Tab.Er.24h PO 12/22/25 08:59 100 mg DAILY FERN Administration Multivitamins 1 tab 12/23/24 09:00 12/25/24 08:41 Multivitamin 1 Tab Tablet PO 12/23/25 08:59 1 tab DAILY FERN Administration Ondansetron HCl 4 mg 12/22/24 11:12 12/23/24 08:58 Ondansetron 4 Mg/2 Ml Vial IV-PUSH 12/22/25 11:11 4 mg Q6H PRN Administration Nausea And Vomiting Oxycodone HCl 5 mg 12/22/24 11:12 12/25/24 08:41 Oxycodone Ir 5 Mg Tablet PO 5 mg Q4HR PRN Administration Pain Scale 1 - 5 Oxycodone HCl 10 mg 12/22/24 11:12 Oxycodone Ir 5 Mg Tablet PO Q4HR PRN Pain Scale 6 - 10 Polyethylene Glycol 17 gm 12/22/24 09:00 12/25/24 08:39 Polyethylene Glycol 3350 17 Gm Powd.Pack PO 12/22/25 08:59 17 gm DAILY FERN Administration Sennosides 17.2 mg 12/22/24 09:00 12/25/24 08:39 Sennosides 8.6 Mg Tablet PO 12/22/25 08:59 17.2 mg BID FERN Administration Sodium Chloride 0 ml 12/22/24 11:12 Sodium Chloride 0.9 % 10 Ml Syringe IV-PUSH 12/22/25 11:11 PRN PRN Flush A&P - Hospitalist Assessment/Plan (1) Femoral neck fracture: Plan: ? Status post HERRERA on right hip on December 23, 2024 ? Orthopedic surgery to manage ? Pain control as ordered ?Assuming to resume Eliquis tomorrow morning (2) Stage 4 chronic kidney disease: Plan: Kidney function is stable, creatinine did trend up today ? Will consult nephrology ? Resume his home dose of Lasix today (3) Type 2 diabetes mellitus with hyperglycemia: Plan: ? A diabetic diet, his glucose is within appropriate ranges on morning BMP (4) Paroxysmal atrial fibrillation: Plan: ? Continue Eliquis per orthopedics discretion (5) Aspiration pneumonia: Plan: Continue switch Unasyn to Augmentin and continue Zithromycin for a total of 5- day treatment ? Patient is already on Trelegy therapy with our hospital substitution for the equivalent dose ? There is absolutely no wheezing whatsoever on his physical exam, no place for DuoNebs at this point in time ? Ideally his hypoxia will increase now that we have resumed his Lasix since hisblood pressure allows it. (6) Acute on chronic anemia: Plan: ? Also component of blood loss anemia secondary to surgery, his baseline is 12 and this morning he is 7.2. He will receive 1 unit PRBC today. Plan ? DVT prophylaxis addressed ? Diabetic diet ? Full code Discharge pending inpatient rehab Documented By: Emile Reynolds DO 12/25/24 1213 Signed By: 12/25/24 1217 [facility]03-12-2025 Progress note Author Walker Soria [facility] Note Date/Time December 25, 2024 10: 15am [facility] [address] [place] [address] Orthopedic Progress Note Signed Patient: Delano Ren MR#: [id number] : 1940 Acct:[id number] Age/Sex: 84 / M Adm Date: 5 Loc: 4N Room: [id number] Type: ADM IN Attending Dr: Emile Reynolds DO Copies to: ~ Date of Service: 12/24/2024 Exam Physical Exam Vital Signs: Temp Pulse Resp BP Pulse Ox O2 Del Method O2 Flow Rate 98.4 F 80 16 112/68 94 L Nasal Cannula 5 12/24/24 08:42 12/24/24 08:42 12/24/24 08:42 12/24/24 08:42 12/24/24 08:42 12/24/24 08:42 12/24/24 08:42 FiO2 40 12/24/24 03:09 Narrative: Patient is alert and oriented with no specific complaints. The wound is clean and dry. The calf and thigh are nontender with no evidence of DVT. The leg is neurovascularly intact. Patient is able to move the ankle and toes without difficulty. Objective Labs Labs: Laboratory Results - last 24 hr 12/23/24 12/23/24 12/23/24 13:23 18:54 21:12 Corrected WBC 12.5 H Uncorrected WBC Count 12.5 H RBC 3.09 L Hgb 9.9 L Hct 29.5 L MCV 95.5 MCH 31.9 MCHC 33.4 RDW 14.8 Plt Count 149 L MPV 7.5 Neut % (Auto) 89.8 Lymph % (Auto) 3.3 Reagan % (Auto) 6.6 Eos % (Auto) 0.1 Baso % (Auto) 0.2 Nucleat RBC Rel Count 0.0 Neut # (Auto) 11.3 H Lymph # (Auto) 0.4 L Reagan # (Auto) 0.8 Eos # (Auto) 0.0 Baso # (Auto) 0.0 Sample Site Right radial ABG pH 7.41 ABG pCO2 37.6 ABG pO2 170.6 H* ABG HCO3 23.5 ABG Total CO2 24.6 ABG O2 Saturation 98.8 ABG O2 Content 6.4 L ABG Base Excess -0.9 O2 Delivery Device Bipap FiO2 100 PEEP 6 Pressure Support 6.0 Critical Value PHA Creatinine Clear Sodium Potassium Chloride Carbon Dioxide Anion Gap BUN Creatinine Est GFR (CKD-EPI) Glucose POC Glucose 145 Calcium Magnesium 12/24/24 05:47 Corrected WBC 10.8 H Uncorrected WBC Count RBC 2.64 L Hgb 8.7 L Hct 25.3 L MCV 95.5 MCH 32.8 MCHC 34.3 RDW 14.2 Plt Count 143 L MPV 7.7 Neut % (Auto) Lymph % (Auto) Reagan % (Auto) Eos % (Auto) Baso % (Auto) Nucleat RBC Rel Count Neut # (Auto) Lymph # (Auto) Reagan # (Auto) Eos # (Auto) Baso # (Auto) Sample Site ABG pH ABG pCO2 ABG pO2 ABG HCO3 ABG Total CO2 ABG O2 Saturation ABG O2 Content ABG Base Excess O2 Delivery Device FiO2 PEEP Pressure Support Critical Value PHA Creatinine Clear 20.11 Sodium 138 Potassium 4.3 Chloride 101 Carbon Dioxide 30.1 Anion Gap 11.2 BUN 70 H Creatinine 3.40 H Est GFR (CKD-EPI) 17.303 Glucose 158 H POC Glucose Calcium 7.7 L Magnesium 2.4 Assessment / Plan Assessment and plan (1) Femoral neck fracture: Code(s): S72.009A - Fracture of unspecified part of neck of unspecified femur, initial encounter for closed fracture Plan Ok to resume Eliquis Progress weightbearing as tolerated right leg Hopeful discharge to extended-care facility within a day or 2 Repeat x-rays in 1 week and have these sent to our office Any out 14 days postop Documented By: Walker Soria MD 12/24/24 1113 Signed By: <Electronically signed by MD Walker Soria> 12/25/24 1015 [facility] Work Phone: [phone] 471-861803-12-2025 [place] [address] Nephrology Progress Note Signed Patient: Delano Ren MR#: [id number] : 1940 Acct:[id number] Age/Sex: 84 / M Adm Date: 5 Loc: Room: [address] [place] [address] Type: ADM IN Attending Dr: Emile Reynolds DO Copies to: ~ Date of Service: 12/25/2024 Subjective Subjective Narrative: This is a 84-year-old male with a medical history of DM, HTN, A-fib, CKD, HFrEF,HLD and anemia was presented to the emergency room after mechanical fall. Patient on evaluation in the emergency room was found to have right hip fracture. Orthopedic was consulted and patient was taken to the OR on 12/23for surgery. On presentation his serum creatinine was 3.2 mg/dL which went downto 2.6 mg/dL with IV fluid resuscitation and holding his Lasix. Patient postoperatively was found to have a relative hypotension and his serum creatinine this morning went up to 3.4 mg/dL. Patient has a longstanding hypertension and was taking multiple antihypertensive medication including amlodipine, hydralazine,metoprolol, Isordil and Lasix. His hospital course wasalso complicated by pneumonia and was startedon antibiotics for aspiration pneumonia. Patient also was found to have a worsening anemia his hemoglobin dropped from his baseline 11.7 on presentation to 8.7 g/dL. Nephrology is consulted for WICHO on CKD management. Patient was seen and examined bedside. Hereported that he has CKD and follows withDr. Syed for CKD care. Interim history Patient was seen and examined at bedside. He reported to have a pain at the surgical site but controlled with the pain medications. Denies any chest pain palpitation cough nausea vomiting diarrhea and shortness of breath Exam Physical Exam Vital Signs: Temp Pulse Resp BP Pulse Ox O2 Del Method O2 Flow Rate 98.0 F 72 15 104/54 L 93 L Nasal Cannula 3 12/25/24 11:27 12/25/24 11:27 12/25/24 11:27 12/25/24 11:27 12/25/24 11:27 12/25/24 07:52 12/25/24 07:52 FiO2 40 12/24/24 03:09 Narrative: General: Appears comfortable and not in distress Heart: S1-S2, no rub Lung: Bilateral air entry, no wheezing or crackles Abdomen: Soft, positive bowel sounds Extremities: No edema, no cyanosis Head: Atraumatic, normocephalic Ear: No gross hearing Deficit or external ear redness Eyes: No pallor or redness Neck: No JVD or visible mass Skin: No rashes , warm to touch KOSHER INSPECTOR: Awake,Alert, following simple command Musculoskeletal: No swelling or limitation of movement of the large joints Psychiatric: Cooperative, normal mood and affect Objective Intake and Output I&O: Intake & Output 12/23/24 12/23/24 12/24/24 12/25/24 00:59 23:59 23:59 23:59 Intake Total 2310 / 2310 2800 / 2800 2300 / 2300 Output Total 2000 / 1999 1100 / 1100 1150 / 1150 Balance 310 / 310 1700 / 1700 1150 / 1150 Weight 97.6 kg 99.2 kg Meds and Allergies Meds: Active Medications Acetaminophen (Acetaminophen 325 Mg Tablet) 650 mg PO Q4H PRN PRN Reason: Pain Scale 1 - 5 Stop: 12/21/25 22:29 Last Admin: 12/23/24 07:59 Dose: 650 mg Acetaminophen (Acetaminophen 500 Mg Tablet) 1,000 mg PO Q8H PRN PRN Reason: Fever or Pain Stop: 12/22/25 11:11 Last Admin: 12/25/24 07:44 Dose: 1,000 mg Albuterol (Albuterol Neb 2.5 Mg/3 Ml Vial.Neb) 2.5 mg INHALATION Q2H PRN PRN Reason: Shortness Of Breath Stop: 12/21/25 22:29 Allopurinol (Allopurinol 100 Mg Tablet) 100 mg PO DAILY FERN Stop: 12/22/25 08:59 Last Admin: 12/25/24 08:41 Dose: 100 mg Amiodarone HCl (Amiodarone 200 Mg Tablet) 200 mg PO DAILY FERN Stop: 12/22/25 08:59 Last Admin: 12/25/24 08:40 Dose: 200 mg Amlodipine Besylate (Amlodipine 10 Mg Tablet) 10 mg PO DAILY FERN Stop: 12/22/25 08:59 Last Admin: 12/24/24 08:38 Dose: Not Given Amoxicillin/Clavulanate Potassium (Amoxicillin/Clav 500-125 Mg Tablet) 1 tab POBID REPLACED BY [facility] Stop: 12/28/24 20:59 Last Admin: 12/25/24 08:40 Dose: 1 tab Ascorbic Acid (Ascorbic Acid 500 Mg Tablet) 500 mg PO DAILY FERN Stop: 12/23/25 08:59 Last Admin: 12/25/24 08:41 Dose: 500 mg Azithromycin (Azithromycin 250 Mg Tablet) 500 mg PO Q24H FERN Stop: 12/28/24 23:00 Last Admin: 12/24/24 16:44 Dose: 500 mg Calcium Carbonate (Calcium Carbonate/Vitamin D3 500 Mg/200 Unit Tablet) 1 tab PO TID.WITH.MEALS FERN Stop: 12/22/25 11:59 Last Admin: 12/25/24 11:33 Dose: 1 tab Diphenhydramine HCl (Diphenhydramine 25 Mg Capsule) 25 mg PO Q6H PRN PRN Reason: Itching Stop: 12/23/25 13:12 Docusate Sodium (Docusate 100 Mg Capsule) 200 mg PO BID PRN PRN Reason: Constipation Stop: 12/21/25 22:29 Docusate Sodium (Docusate 100 Mg Capsule) 100 mg PO BID REPLACED BY [facility] Stop: 12/23/25 20:59 Last Admin: 12/25/24 08:41 Dose: 100 mg Fluticasone/Umeclidinium/Vilanterol (Fluticas/Umeclidin/Vilanter 200-62.5-25 Mcg28 Puff Inhaler *Nf*) 1 puff INHALATION DAILY REPLACED BY [facility] Stop: 12/23/25 08:59 Last Admin: 12/25/24 08:42 Dose: 1 puff Furosemide (Furosemide 80 Mg Tablet) 80 mg PO DAILY REPLACED BY [facility] Stop: 12/25/25 10:14 Last Admin: 12/25/24 11:33 Dose: 80 mg Hydralazine HCl (Hydralazine 20 Mg/Ml Vial) 10 mg IV-PUSH Q4H PRN PRN Reason: if SBP > 185 Stop: 12/21/25 22:29 Hydralazine HCl (Hydralazine 50 Mg Tablet) 100 mg PO TID REPLACED BY [facility] Stop: 12/22/25 08:59 Last Admin: 12/25/24 08:40 Dose: 100 mg Hydromorphone HCl (Hydromorphone 1 Mg/Ml Syringe) 0.25 mg IV-PUSH Q4H PRN PRN Reason: pain Last Admin: 12/22/24 09:42 Dose: 0.25 mg Hydromorphone HCl (Hydromorphone 0.5 Mg/0.5 Ml Syringe) 0.5 mg IV-PUSH Q2H PRN PRN Reason: Pain Scale 1 - 3 Last Admin: 12/23/24 08:45 Dose: 0.5 mg Hydromorphone HCl (Hydromorphone 1 Mg/Ml Syringe) 1 mg IV-PUSH Q2H PRN PRN Reason: Pain Scale 4 - 6 Sodium Chloride (0.9% Sodium Chloride 100 Ml) 100 mls @ 20 mls/hr IV PROTOCOL PRN PRN Reason: BLOOD TRANSFUSION Stop: 12/26/24 10:44 Isosorbide Dinitrate (Isosorbide Dinitrate 10 Mg Tablet) 10 mg PO TID REPLACED BY [facility] Stop: 12/22/25 08:59 Last Admin: 12/25/24 08:41 Dose: 10 mg Lidocaine HCl (Lidocaine 1% 50 Ml Vial) 0.1 ml INTRADERMA PREOP PRN PRN Reason: Venipuncture x 1 Dose Magnesium Hydroxide (Magnesium Hydroxide Susp 30 Ml Udc) 30 ml PO DAILY PRN PRN Reason: Constipation Stop: 12/22/25 11:11 Metoprolol Succinate (Metoprolol Succinate 100 Mg Tab.Er.24h) 100 mg PO DAILY REPLACED BY [facility] Stop: 12/22/25 08:59 Last Admin: 12/25/24 08:40 Dose: 100 mg Multivitamins (Multivitamin 1 Tab Tablet) 1 tab PO DAILY FERN Stop: 12/23/25 08:59 Last Admin: 12/25/24 08:41 Dose: 1 tab Ondansetron HCl (Ondansetron 4 Mg/2 Ml Vial) 4 mg IV-PUSH Q6H PRN PRN Reason: Nausea And Vomiting Stop: 12/22/25 11:11 Last Admin: 12/23/24 08:58 Dose: 4 mg Oxycodone HCl (Oxycodone Ir 5 Mg Tablet) 5 mg PO Q4HR PRN PRN Reason: Pain Scale 1 - 5 Last Admin: 12/25/24 08:41 Dose: 5 mg Oxycodone HCl (Oxycodone Ir 5 Mg Tablet) 10 mg PO Q4HR PRN PRN Reason: Pain Scale 6 - 10 Polyethylene Glycol (Polyethylene Glycol 3350 17 Gm Powd.Pack) 17 gm PO DAILY REPLACED BY [facility] Stop: 12/22/25 08:59 Last Admin: 12/25/24 08:39 Dose: 17 gm Sennosides (Sennosides 8.6 Mg Tablet) 17.2 mg PO BID FERN Stop: 12/22/25 08:59 Last Admin: 12/25/24 08:39 Dose: 17.2 mg Sodium Chloride (Sodium Chloride 0.9 % 10 Ml Syringe) 0 ml IV-PUSH PRN PRN PRN Reason: Flush Stop: 12/22/25 11:11 Allergies simvastatin Allergy (Unknown, Verified 12/19/24 08:50) Unknown Reaction Bupbakb-ORW-VzK Reductase Inhibitor (Tqqjcdw-Qaz-Obk Reductase Inhibitor) Allergy (Unknown, Verified 12/19/24 08:50) Muscle Pain tramadol Allergy (Verified 12/19/24 08:50) Itching niacin ER Allergy (Uncoded 08/22/24 08:31) itching Results - Nephrology Labs 12/25/24 06:00 12/25/24 06:00 Labs: 12/25/24 06:00 BUN 81 H Creatinine 3.34 H Radiology Impressions Impressions - last 24 hours: Any impression(s) listed above is documentation that was entered by the reading physician into a diagnostic report(s) for Delano Jefry Ren. I have reviewed the report(s) and am incorporating any findings in the treatment plan of this patient where applicable. A&P - Nephrology Assessment/Plan (1) Acute kidney injury superimposed on CKD: Assessment/Problem Details: He has WICHO on CKD likely due to the relative hypotension and postoperative bloodloss anemia. (2) Stage 4 chronic kidney disease: Assessment/Problem Details: He has a longstanding CKD due to the DM and HTN with baseline serum creatinine around 2.6-3 mg/dL. (3) Hypertensive chronic kidney disease with stage 1 through stage 4 chronic kidney disease, or unspecified chronic kidney disease: Assessment/Problem Details: His blood pressures has been running relatively low. He is on multiple antihypertensive medication including amlodipine, hydralazine, furosemide, metoprolol, Isordil. (4) Acute on chronic anemia: Assessment/Problem Details: He has acute on chronic anemia due to the blood loss anemia. (5) Aspiration pneumonia: Assessment/Problem Details: Patient was found to have aspiration pneumonia. Currently on antibiotics. (6) Chronic HFrEF (heart failure with reduced ejection fraction): Assessment/Problem Details: He appears to be well compensated. He was taking Lasix at home. (7) Type 2 diabetes mellitus with hyperglycemia: Assessment/Problem Details: He has rgy-osqlvla-xvflqkjhy type 2 diabetes mellitus currently on diet control. Plan * No need for emergent hemodialysis now. Will continue to assess its needs on regular basis. * Continue to hold hold amlodipine * Will resume furosemide 80 mg daily * Continue antibiotics for pneumonia as per the primary team. * Will continue hydralazine, Isordil and metoprolol. * Monitor H&H and transfuse as needed to keep the hemoglobin greater than 8 g/dL. * Check renal function daily and monitor for output * Case was discussed with the patient family at the bedside. Documented By: Zahida Flowers MD 12/25/24 1159 Signed By: 12/25/24 1204 [facility]03-12-2025 [place] [id number] Orthopedic Progress Note Signed Patient: Delano Ren MR#: [id number] : 1940 Acct:[id number] Age/Sex: 84 / M Adm Date: Loc: 4N Room: [address] [place] [address] Type: ADM IN Attending Dr: Emile Reynolds DO Copies to: ~ Date of Service: 12/25/2024 Exam Physical Exam Vital Signs: Temp Pulse Resp BP Pulse Ox O2 Del Method O2 Flow Rate 97.8 F 82 16 154/89 H 95 Nasal Cannula 3 12/25/24 07:50 12/25/24 07:50 12/25/24 07:50 12/25/24 07:50 12/25/24 07:50 12/25/24 07:52 12/25/24 07:52 FiO2 40 12/24/24 03:09 Narrative: Saturation of right hip dressing. No active bleeding visible from the wound. Moderate swelling right thigh. Moving ankle and toes well. Hemoglobin 7.2 Objective Labs Labs: Laboratory Results - last 24 hr 12/25/24 06:00 Corrected WBC 8.0 Uncorrected WBC Count 8.0 RBC 2.19 L Hgb 7.2 L Hct 20.9 L MCV 95.3 MCH 32.8 MCHC 34.4 RDW 14.6 Plt Count 137 L MPV 8.0 Neut % (Auto) 79.2 Lymph % (Auto) 9.0 Reagan % (Auto) 10.2 Eos % (Auto) 1.4 Baso % (Auto) 0.2 Nucleat RBC Rel Count 0.1 Neut # (Auto) 6.3 Lymph # (Auto) 0.7 L Reagan # (Auto) 0.8 Eos # (Auto) 0.1 Baso # (Auto) 0.0 PHA Creatinine Clear 20.47 Sodium 135 L Potassium 4.1 Chloride 97 L Carbon Dioxide 32.0 H Anion Gap 10.1 BUN 81 H Creatinine 3.34 H Est GFR (CKD-EPI) 17.677 Glucose 135 H Calcium 7.9 L Magnesium 2.5 Assessment / Plan Assessment and plan (1) Femoral neck fracture: Code(s): S72.009A - Fracture of unspecified part of neck of unspecified femur, initial encounter for closed fracture Plan Will plan on transfusion 2 units packed red cells. Hopeful discharge to rehab later today or tomorrow. Documented By: Walker Soria MD 12/25/24 1024 Signed By: 12/25/24 1025 [facility]03-12-[address] [address] Orthopedic Progress Note Signed Patient: Delano Ren MR#: [id number] : 1940 Acct:[id number] Age/Sex: 84 / M Adm Date: 5 Loc: 4N Room: [address] [place] [address] Type: ADM IN Attending Dr: Emile Reynolds DO Copies to: ~ Date of Service: 12/24/2024 Exam Physical Exam Vital Signs: Temp Pulse Resp BP Pulse Ox O2 Del Method O2 Flow Rate 98.4 F 80 16 112/68 94 L Nasal Cannula 5 12/24/24 08:42 12/24/24 08:42 12/24/24 08:42 12/24/24 08:42 12/24/24 08:42 12/24/24 08:42 12/24/24 08:42 FiO2 40 12/24/24 03:09 Narrative: Patient is alert and oriented with no specific complaints. The wound is clean and dry. The calf and thigh are nontender with no evidence of DVT. The leg is neurovascularly intact. Patient is able to move the ankle and toes without difficulty. Objective Labs Labs: Laboratory Results - last 24 hr 12/23/24 12/23/24 12/23/24 13:23 18:54 21:12 Corrected WBC 12.5 H Uncorrected WBC Count 12.5 H RBC 3.09 L Hgb 9.9 L Hct 29.5 L MCV 95.5 MCH 31.9 MCHC 33.4 RDW 14.8 Plt Count 149 L MPV 7.5 Neut % (Auto) 89.8 Lymph % (Auto) 3.3 Reagan % (Auto) 6.6 Eos % (Auto) 0.1 Baso % (Auto) 0.2 Nucleat RBC Rel Count 0.0 Neut # (Auto) 11.3 H Lymph # (Auto) 0.4 L Reagan # (Auto) 0.8 Eos # (Auto) 0.0 Baso # (Auto) 0.0 Sample Site Right radial ABG pH 7.41 ABG pCO2 37.6 ABG pO2 170.6 H* ABG HCO3 23.5 ABG Total CO2 24.6 ABG O2 Saturation 98.8 ABG O2 Content 6.4 L ABG Base Excess -0.9 O2 Delivery Device Bipap FiO2 100 PEEP 6 Pressure Support 6.0 Critical Value PHA Creatinine Clear Sodium Potassium Chloride Carbon Dioxide Anion Gap BUN Creatinine Est GFR (CKD-EPI) Glucose POC Glucose 145 Calcium Magnesium 12/24/24 05:47 Corrected WBC 10.8 H Uncorrected WBC Count RBC 2.64 L Hgb 8.7 L Hct 25.3 L MCV 95.5 MCH 32.8 MCHC 34.3 RDW 14.2 Plt Count 143 L MPV 7.7 Neut % (Auto) Lymph % (Auto) Reagan % (Auto) Eos % (Auto) Baso % (Auto) Nucleat RBC Rel Count Neut # (Auto) Lymph # (Auto) Reagan # (Auto) Eos # (Auto) Baso # (Auto) Sample Site ABG pH ABG pCO2 ABG pO2 ABG HCO3 ABG Total CO2 ABG O2 Saturation ABG O2 Content ABG Base Excess O2 Delivery Device FiO2 PEEP Pressure Support Critical Value PHA Creatinine Clear 20.11 Sodium 138 Potassium 4.3 Chloride 101 Carbon Dioxide 30.1 Anion Gap 11.2 BUN 70 H Creatinine 3.40 H Est GFR (CKD-EPI) 17.303 Glucose 158 H POC Glucose Calcium 7.7 L Magnesium 2.4 Assessment / Plan Assessment and plan (1) Femoral neck fracture: Code(s): S72.009A - Fracture of unspecified part of neck of unspecified femur, initial encounter for closed fracture Plan Ok to resume Eliquis Progress weightbearing as tolerated right leg Hopeful discharge to extended-care facility within a day or 2 Repeat x-rays in 1 week and have these sent to our office Any out 14 days postop Documented By: Walker Soria MD 12/24/24 1119 Signed By: 12/25/24 1015 [facility]03-11-2025 Consult note Author Zahida Flowers [facility] Note Date/Time December 24, 2024 3:4 8pm [facility] [address] [place] [address] Nephrology Consult Note Signed Patient: Delano Ren MR#: [id number] : 1940 Acct:[id number] Age/Sex: 84 / M Adm Date: 5 Loc: 4N Room: 3I0200-0 Type: ADM IN Attending Dr: Emile Reynolds DO Copies to: MD Yas Rosado DO Shawn J Warner, DO~ Providers Consult Date: 12/24/24 Requesting Provider: Emile Reynolds DO Primary Care Provider: Yas Linda DO HPI Reason for Consult: WICHO on CKD management History of Present Illness: This is a 84-year-old male with a medical history of DM, HTN, A-fib, CKD, HFrEF,HLD and anemia was presented to the emergency room after mechanical fall. Patient on evaluation in the emergency room was found to have right hip fracture. Orthopedic was consulted and patient was taken to the OR on 12/23/2024for surgery. On presentation his serum creatinine was 3.2 mg/dL which went downto 2.6 mg/dL with IV fluid resuscitation and holding his Lasix. Patient postoperatively was found to have a relative hypotension and his serum creatinine this morning went up to 3.4 mg/dL. Patient has a longstanding hypertension and was taking multiple antihypertensive medication including amlodipine, hydralazine, metoprolol, Isordil and Lasix. His hospital course wasalso complicated by pneumonia and was started on antibiotics for aspiration pneumonia. Patient also was found to have a worsening anemia his hemoglobin dropped from his baseline 11.7 on presentation to 8.7 g/dL. Nephrology is consulted for WICHO on CKD management. Patient was seen and examined bedside. Hereported that he has CKD and follows with PCP for CKD care. He reported longstanding DM remaining on diet control but denies any history of diabetic retinopathy. Review of Systems Review of Systems All other systems reviewed & are negative unless noted below or in HPI Review of systems: Cardiovascular: denies any chest pain, palpitation Pulmonary: denies any cough, hemoptysis Gastrointestinal: denies any nausea, vomiting, diarrhea Neurological :denies any headache, numbness, weakness Endocrine: denies any polyuria, polydipsia Dermatological: denies any itching or rash PMFSH Medical History (Updated 12/24/24 @ 15:28 by Zahida Flowers MD) Former smoker quit at age ~44 COPD (chronic obstructive pulmonary disease) cpap use Screening PSA (prostate specific antigen) PSA: 0.91 - 07/2024 Chronic bronchitis, simple Chronic HFrEF (heart failure with reduced ejection fraction) Echo: LVEF 25%, RV reduced function, RVSP 61, SANJAY, mod MR - 02/2023 Type 2 diabetes mellitus with hyperglycemia Thyrotoxicosis Stage 4 chronic kidney disease Pulmonary hypertension Psoas abscess Primary hypertension Paroxysmal atrial fibrillation Ablation - 10/2019 Cardioversion - 10/2024 Obstructive sleep apnea Nonischemic dilated cardiomyopathy LHC: nonobstructive coronary disease - 2016 s/p ICD - 10/2019, BiV ICD - 05/2023 Lumbar spondylosis 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 Hypokalemia Hyperuricemia Hypertensive chronic kidney disease with stage 1 through stage 4 chronic kidney disease, or unspecified chronic kidney disease Hyperlipidemia type II Complete heart block Chronic venous insufficiency Hyperthyroidism Hyperlipidemia Chicken pox Arthritis Anemia Wears hearing aid in left ear Colon cancer Hemicolectomy 08/2021, Surveillance colonoscopy 07/2022 (repeat 2 years) Hypercholesteremia Coronary artery disease A-fib hx ablation Surgical History Hx of tonsillectomy Hx of cardiac catheterization (~2015) Biventricular ICD (implantable cardioverter-defibrillator) in place (~05/2023) H/O cardiac radiofrequency ablation H/O right hemicolectomy (~08/2021) H/O colonoscopy (~08/2024) 07/2022, 08/2024 w/ plan to repeat 2 years History of right heart catheterization (RHC) History of left knee replacement Pacemaker Family History Father CHF (congestive heart failure) Heart disease Mother Diabetes mellitus, type 2 Heart disease Brother Cancer Son Blackfan Glo anemia Social History Smoking Status: Never smoker Tobacco Type: cigarettes Substance Use Type: None Meds Medications & Allergies Allergies simvastatin Allergy (Unknown, Verified 12/19/24 08:50) Unknown Reaction Ablhvzv-SXF-DgW Reductase Inhibitor (Tdqzdzc-Jcx-Drm Reductase Inhibitor) Allergy (Unknown, Verified 12/19/24 08:50) Muscle Pain tramadol Allergy (Verified 12/19/24 08:50) Itching niacin ER Allergy (Uncoded 08/22/24 08:31) itching Home Medications hydralazine 100 mg tablet 100 mg PO TID 30 days #90 tabs 06/09/21 [Rx Confirmed 12/21/24] niacin 500 mg tablet 500 mg PO DAILY 30 days #30 tabs 06/09/21 [Rx Confirmed 12/21/24] amlodipine 10 mg tablet 10 mg PO DAILY 07/21/22 [History Confirmed 12/21/24] isosorbide dinitrate 10 mg tablet 10 mg PO TID 07/21/22 [History Confirmed 12/21/24] apixaban 2.5 mg tablet (Eliquis) 2.5 mg PO BID 03/03/23 [History Confirmed 12/21/24] blood sugar diagnostic (Contour Next Test Strips) 12/15/23 [History Confirmed 12/19/24] cholecalciferol (vitamin D3) 125 mcg (5,000 unit) tablet 5,000 unit PO DAILY 12/15/23 [History Confirmed 12/21/24] metoprolol succinate 100 mg tablet,extended release 24 hr 100 mg PO DAILY 12/15/23 [History Confirmed 12/21/24] furosemide 80 mg tablet 80 mg PO DAILY 30 days #30 tabs 12/18/23 [Rx Confirmed 12/21/24] fluticasone fur. 200 mcg-umeclid 62.5 mcg-vilant 25 mcg inhalat.powder (Trelegy Ellipta) 1 inh inhalation DAILY 90 days #90 ea 02/15/24 [Rx Confirmed 12/21/24] ezetimibe 10 mg tablet 10 mg PO DAILY 03/01/24 [History Confirmed 12/21/24] allopurinol 100 mg tablet 100 mg PO DAILY 90 days #90 tabs 06/05/24 [Rx Confirmed 12/21/24] acetaminophen 500 mg tablet (Acetaminophen Extra Strength) 1,000 mg PO DIRECTED PRN pain 08/12/24 [History Confirmed 12/21/24] losartan 25 mg tablet 25 mg PO DAILY 08/12/24 [History Confirmed 12/21/24] potassium chloride 10 mEq tablet,extended release(part/cryst) See Rx Instructions .Route .COMPLEX #90 tabs 10/15/24 [Rx Confirmed 12/21/24] amiodarone 200 mg tablet 200 mg PO DAILY 11/08/24 [History Confirmed 12/21/24] Active Medications: Active Medications Acetaminophen (Acetaminophen 325 Mg Tablet) 650 mg PO Q4H PRN PRN Reason: Pain Scale 1 - 5 Stop: 12/21/25 22:29 Last Admin: 12/23/24 07:59 Dose: 650 mg Acetaminophen (Acetaminophen 500 Mg Tablet) 1,000 mg PO Q8H PRN PRN Reason: Fever or Pain Stop: 12/22/25 11:11 Last Admin: 12/24/24 08:37 Dose: 1,000 mg Albuterol (Albuterol Neb 2.5 Mg/3 Ml Vial.Neb) 2.5 mg INHALATION Q2H PRN PRN Reason: Shortness Of Breath Stop: 12/21/25 22:29 Allopurinol (Allopurinol 100 Mg Tablet) 100 mg PO DAILY FERN Stop: 12/22/25 08:59 Last Admin: 12/24/24 08:37 Dose: 100 mg Amiodarone HCl (Amiodarone 200 Mg Tablet) 200 mg PO DAILY FERN Stop: 12/22/25 08:59 Last Admin: 12/24/24 08:37 Dose: 200 mg Amlodipine Besylate (Amlodipine 10 Mg Tablet) 10 mg PO DAILY FERN Stop: 12/22/25 08:59 Last Admin: 12/24/24 08:38 Dose: Not Given Amoxicillin/Clavulanate Potassium (Amoxicillin/Clav 500-125 Mg Tablet) 1 tab POBID REPLACED BY [facility] Stop: 12/28/24 20:59 Ascorbic Acid (Ascorbic Acid 500 Mg Tablet) 500 mg PO DAILY FERN Stop: 12/23/25 08:59 Last Admin: 12/24/24 08:37 Dose: 500 mg Azithromycin (Azithromycin 250 Mg Tablet) 500 mg PO Q24H FERN Stop: 12/28/24 23:00 Calcium Carbonate (Calcium Carbonate/Vitamin D3 500 Mg/200 Unit Tablet) 1 tab PO TID.WITH.MEALS REPLACED BY [facility] Stop: 12/22/25 11:59 Last Admin: 12/24/24 11:36 Dose: 1 tab Diphenhydramine HCl (Diphenhydramine 25 Mg Capsule) 25 mg PO Q6H PRN PRN Reason: Itching Stop: 12/23/25 13:12 Docusate Sodium (Docusate 100 Mg Capsule) 200 mg PO BID PRN PRN Reason: Constipation Stop: 12/21/25 22:29 Docusate Sodium (Docusate 100 Mg Capsule) 100 mg PO BID REPLACED BY [facility] Stop: 12/23/25 20:59 Last Admin: 12/24/24 08:37 Dose: 100 mg Fluticasone/Umeclidinium/Vilanterol (Fluticas/Umeclidin/Vilanter 200-62.5-25 Mcg28 Puff Inhaler *Nf*) 1 puff INHALATION DAILY REPLACED BY [facility] Stop: 12/23/25 08:59 Last Admin: 12/24/24 08:38 Dose: 1 puff Furosemide (Furosemide 80 Mg Tablet) 80 mg PO DAILY REPLACED BY [facility] Stop: 12/24/25 12:14 Last Admin: 12/24/24 13:35 Dose: Not Given Hydralazine HCl (Hydralazine 20 Mg/Ml Vial) 10 mg IV-PUSH Q4H PRN PRN Reason: if SBP > 185 Stop: 12/21/25 22:29 Hydralazine HCl (Hydralazine 50 Mg Tablet) 100 mg PO TID REPLACED BY [facility] Stop: 12/22/25 08:59 Last Admin: 12/24/24 13:35 Dose: Not Given Hydromorphone HCl (Hydromorphone 1 Mg/Ml Syringe) 0.25 mg IV-PUSH Q4H PRN PRN Reason: pain Last Admin: 12/22/24 09:42 Dose: 0.25 mg Hydromorphone HCl (Hydromorphone 0.5 Mg/0.5 Ml Syringe) 0.5 mg IV-PUSH Q2H PRN PRN Reason: Pain Scale 1 - 3 Last Admin: 12/23/24 08:45 Dose: 0.5 mg Hydromorphone HCl (Hydromorphone 1 Mg/Ml Syringe) 1 mg IV-PUSH Q2H PRN PRN Reason: Pain Scale 4 - 6 Sodium Chloride (0.9% Sodium Chloride 1,000 Ml) 1,000 mls @ 70 mls/hr IV .[id number] REPLACED BY [facility] Stop: 12/23/25 00:04 Last Admin: 12/24/24 06:38 Dose: Not Given Isosorbide Dinitrate (Isosorbide Dinitrate 10 Mg Tablet) 10 mg PO TID REPLACED BY [facility] Stop: 12/22/25 08:59 Last Admin: 12/24/24 13:35 Dose: Not Given Lidocaine HCl (Lidocaine 1% 50 Ml Vial) 0.1 ml INTRADERMA PREOP PRN PRN Reason: Venipuncture x 1 Dose Magnesium Hydroxide (Magnesium Hydroxide Susp 30 Ml Udc) 30 ml PO DAILY PRN PRN Reason: Constipation Stop: 12/22/25 11:11 Metoprolol Succinate (Metoprolol Succinate 100 Mg Tab.Er.24h) 100 mg PO DAILY REPLACED BY [facility] Stop: 12/22/25 08:59 Last Admin: 12/24/24 08:38 Dose: Not Given Multivitamins (Multivitamin 1 Tab Tablet) 1 tab PO DAILY REPLACED BY [facility] Stop: 12/23/25 08:59 Last Admin: 12/24/24 08:37 Dose: 1 tab Ondansetron HCl (Ondansetron 4 Mg/2 Ml Vial) 4 mg IV-PUSH Q6H PRN PRN Reason: Nausea And Vomiting Stop: 12/22/25 11:11 Last Admin: 12/23/24 08:58 Dose: 4 mg Oxycodone HCl (Oxycodone Ir 5 Mg Tablet) 5 mg PO Q4HR PRN PRN Reason: Pain Scale 1 - 5 Last Admin: 12/24/24 11:36 Dose: 5 mg Oxycodone HCl (Oxycodone Ir 5 Mg Tablet) 10 mg PO Q4HR PRN PRN Reason: Pain Scale 6 - 10 Polyethylene Glycol (Polyethylene Glycol 3350 17 Gm Powd.Pack) 17 gm PO DAILY REPLACED BY [facility] Stop: 12/22/25 08:59 Last Admin: 12/24/24 08:38 Dose: 17 gm Sennosides (Sennosides 8.6 Mg Tablet) 17.2 mg PO BID REPLACED BY [facility] Stop: 12/22/25 08:59 Last Admin: 12/24/24 08:37 Dose: 17.2 mg Sodium Chloride (Sodium Chloride 0.9 % 10 Ml Syringe) 0 ml IV-PUSH PRN PRN PRN Reason: Flush Stop: 12/22/25 11:11 Exam Physical Exam Vital Signs: Temp Pulse Resp BP Pulse Ox O2 Del Method O2 Flow Rate 98.4 F 56 L 13 94/53 L 95 Nasal Cannula 4 12/24/24 11:54 12/24/24 11:54 12/24/24 11:54 12/24/24 11:54 12/24/24 11:54 12/24/24 11:54 12/24/24 11:54 FiO2 40 12/24/24 03:09 Narrative: General: Appears comfortable and not in distress Heart: S1-S2, no rub Lung: Bilateral air entry, no wheezing or crackles Abdomen: Soft, positive bowel sounds Extremities: No edema, no cyanosis Head: Atraumatic, normocephalic Ear: No gross hearing Deficit or external ear redness Eyes: No pallor or redness Neck: No JVD or visible mass Skin: No rashes , warm to touch KOSHER INSPECTOR: Awake,Alert, following simple command Musculoskeletal: No swelling or limitation of movement of the large joints Psychiatric: Cooperative, normal mood and affect Results - Nephrology Labs 12/24/24 05:47 12/24/24 05:47 Labs: 12/24/24 05:47 BUN 70 H Creatinine 3.40 H Radiology Impressions Impressions - last 24 hours: Impressions Chest X-Ray 12/23/24 20:53 IMPRESSION: Improving right midlung parenchymal density. Impression dictated by: Dominik Hamm M.D.12/23/2024 9:17 PM Dictation Location: [place] [address] Any impression(s) listed above is documentation that was entered by the reading physician into a diagnostic report(s) for Delano Ren. I have reviewed the report(s) and am incorporating any findings in the treatment plan of this patient where applicable. A&P - Nephrology Assessment/Plan (1) Acute kidney injury superimposed on CKD: Assessment/Problem Details: He has WICHO on CKD likely due to the relative hypotension and postoperative bloodloss anemia. (2) Stage 4 chronic kidney disease: Assessment/Problem Details: He has a longstanding CKD due to the DM and HTN with baseline serum creatinine around 2.6-3 mg/dL. (3) Hypertensive chronic kidney disease with stage 1 through stage 4 chronic kidney disease, or unspecified chronic kidney disease: Assessment/Problem Details: His blood pressures has been running relatively low. He is on multiple antihypertensive medication including amlodipine, hydralazine, furosemide, metoprolol, Isordil. (4) Acute on chronic anemia: Assessment/Problem Details: He has acute on chronic anemia due to the blood loss anemia. (5) Aspiration pneumonia: Assessment/Problem Details: Patient was found to have aspiration pneumonia. Currently on antibiotics. (6) Chronic HFrEF (heart failure with reduced ejection fraction): Assessment/Problem Details: He appears to be well compensated. He was taking Lasix at home. (7) Type 2 diabetes mellitus with hyperglycemia: Assessment/Problem Details: He has avs-lxvpbpz-syirxvfcg type 2 diabetes mellitus currently on diet control. Plan * No need for emergent hemodialysis now. Will continue to assess its needs on regular basis. * Hold amlodipine * Will hold furosemide * Will continue gentle fluid resuscitation with normal saline. * Continue antibiotics for pneumonia as per the primary team. * Will continue hydralazine, Isordil and metoprolol. * Monitor H&H and transfuse as needed to keep the hemoglobin greater than 8 g/dL. * Check renal function daily and monitor for output * Thanks for consult. Will continue follow-up with you. Please feel free to call us with any question. Documented By: Zahida Flowers MD 12/24/24 0225 Signed By: <Electronically signed by Zahida Flowers MD> 12/24/24 [address] [facility] Work Phone: [phone]) 718-483603-11-2025 Progress note Author Emile Reynolds [facility] Note Date/Time December 24, 2024 2:1 2pm [facility] [address] [place] [address] Hospitalist Progress Note Signed Patient: Delano Ren MR#: [id number] : 1940 Acct:[id number] Age/Sex: 84 / M Adm Date: 5 Loc: 4N Room: [address] [place] [address] Type: ADM IN Attending Dr: Emile Reynolds DO Copies to: ~ Date of Service: 12/24/2024 Subjective Subjective Narrative: Evaluated this morning, patient was placed on BiPAP overnight due to a little bit of hypoxia however this morning he is saturating well on 5 L, he is in no distress in bed and appears very comfortable. His oxygen was titrated down to 4L. On chart review he has a history of COPD, heart failure with reduced ejection fraction of 35 to 40%, pulmonary hypertension with an RVSP of 49. I did have a long discussion with the patient and his family regarding his numerous risk factors for postop hypoxia after receiving IV fluids. ABG from last night was reviewed. Patient is comfortable this morning. All questions and concerns were answered. Exam Physical Exam Vital Signs: Temp Pulse Resp BP Pulse Ox O2 Del Method O2 Flow Rate 98.4 F 56 L 13 94/53 L 95 Nasal Cannula 4 12/24/24 11:54 12/24/24 11:54 12/24/24 11:54 12/24/24 11:54 12/24/24 11:54 12/24/24 11:54 12/24/24 11:54 FiO2 40 12/24/24 03:09 Narrative: General: Awake alert, no acute distress HEENT: head atraumatic, normocephalic, moist mucous membranes Neck: supple no masses, no lymphadenopathy CVS: regular rate and rhythm, no murmurs or gallops Respiratory: clear to auscultation bilaterally, no wheezing or crackles, symmetric expansion GI: soft, nondistended, nontender, positive bowel sounds with no organomegaly Extremity: moves all extremities, no restrictions of movements, no calf tenderness, no edema Neuro: AOx3, CN II-VII intact. Moves all extremities in all planes of motion. Skin: dry, intact no rashes or lesions Objective Lab Results 12/24/24 05:47 12/24/24 05:47 Meds Allergies and Active Meds Allergies simvastatin Allergy (Unknown, Verified 12/19/24 08:50) Unknown Reaction Zxqeuhn-RMP-LuJ Reductase Inhibitor (Olgobgj-Wjb-Sbo Reductase Inhibitor) Allergy (Unknown, Verified 12/19/24 08:50) Muscle Pain tramadol Allergy (Verified 12/19/24 08:50) Itching niacin ER Allergy (Uncoded 08/22/24 08:31) itching Active Meds: Active Medications Generic Name Dose Route Start Last Admin Trade Name Freq PRN Reason Stop Dose Admin Acetaminophen 650 mg 12/21/24 22:30 12/23/24 07:59 Acetaminophen 325 Mg Tablet PO 12/21/25 22:29 650 mg Q4H PRN Administration Pain Scale 1 - 5 Acetaminophen 1,000 mg 12/22/24 11:12 12/24/24 08:37 Acetaminophen 500 Mg Tablet PO 12/22/25 11:11 1,000 mg Q8H PRN Administration Fever or Pain Albuterol 2.5 mg 12/21/24 22:30 Albuterol Neb 2.5 Mg/3 Ml Vial.Neb INHALATION 12/21/25 22:29 Q2H PRN Shortness Of Breath Allopurinol 100 mg 12/22/24 09:00 12/24/24 08:37 Allopurinol 100 Mg Tablet PO 12/22/25 08:59 100 mg DAILY FERN Administration Amiodarone HCl 200 mg 12/22/24 09:00 12/24/24 08:37 Amiodarone 200 Mg Tablet PO 12/22/25 08:59 200 mg DAILY FERN Administration Amlodipine Besylate 10 mg 12/22/24 09:00 12/24/24 08:38 Amlodipine 10 Mg Tablet PO 12/22/25 08:59 Not Given DAILY FERN Amoxicillin/Clavulanate Potassium 1 tab 12/24/24 21:00 Amoxicillin/Clav 500-125 Mg Tablet PO 12/28/24 20:59 BID FERN Ascorbic Acid 500 mg 12/23/24 09:00 12/24/24 08:37 Ascorbic Acid 500 Mg Tablet PO 12/23/25 08:59 500 mg DAILY FERN Administration Azithromycin 500 mg 12/24/24 16:00 Azithromycin 250 Mg Tablet PO 12/28/24 23:00 Q24H FERN Calcium Carbonate 1 tab 12/22/24 12:00 12/24/24 11:36 Calcium Carbonate/Vitamin D3 500 Mg/200 Unit Tablet PO 12/22/25 11:59 1 tab TID.WITH.MEALS FERN Administration Diphenhydramine HCl 25 mg 12/23/24 13:13 Diphenhydramine 25 Mg Capsule PO 12/23/25 13:12 Q6H PRN Itching Docusate Sodium 200 mg 12/21/24 22:30 Docusate 100 Mg Capsule PO 12/21/25 22:29 BID PRN Constipation Docusate Sodium 100 mg 12/23/24 21:00 12/24/24 08:37 Docusate 100 Mg Capsule PO 12/23/25 20:59 100 mg BID FERN Administration Fluticasone/Umeclidinium/Vilanterol 1 puff 12/23/24 09:00 12/24/24 08:38 Fluticas/Umeclidin/Vilanter 200-62.5-25 Mcg 28 Puff Inhaler *Nf* INHALATION 12/23/25 08:59 1 puff DAILY FERN Administration Furosemide 80 mg 12/24/24 12:15 12/24/24 13:35 Furosemide 80 Mg Tablet PO 12/24/25 12:14 Not Given DAILY FERN Hydralazine HCl 10 mg 12/21/24 22:30 Hydralazine 20 Mg/Ml Vial IV-PUSH 12/21/25 22:29 Q4H PRN if SBP > 185 Hydralazine HCl 100 mg 12/22/24 09:00 12/24/24 13:35 Hydralazine 50 Mg Tablet PO 12/22/25 08:59 Not Given TID FERN Hydromorphone HCl 0.25 mg 12/21/24 22:30 12/22/24 09:42 Hydromorphone 1 Mg/Ml Syringe IV-PUSH 0.25 mg Q4H PRN Administration pain Hydromorphone HCl 0.5 mg 12/22/24 11:12 12/23/24 08:45 Hydromorphone 0.5 Mg/0.5 Ml Syringe IV-PUSH 0.5 mg Q2H PRN Administration Pain Scale 1 - 3 Hydromorphone HCl 1 mg 12/22/24 11:12 Hydromorphone 1 Mg/Ml Syringe IV-PUSH Q2H PRN Pain Scale 4 - 6 Lactated Ringer's 1,000 mls @ 75 mls/hr 12/23/24 00:00 12/24/24 06:39 Lactated Ringers IV 12/23/25 00:00 Not Given .[id number] REPLACED BY [facility] Sodium Chloride 1,000 mls @ 70 mls/hr 12/23/24 00:05 12/24/24 06:38 0.9% Sodium Chloride 1,000 Ml IV 12/23/25 00:04 Not Given .[id number] REPLACED BY [facility] Isosorbide Dinitrate 10 mg 12/22/24 09:00 12/24/24 13:35 Isosorbide Dinitrate 10 Mg Tablet PO 12/22/25 08:59 Not Given TID FERN Lidocaine HCl 0.1 ml 12/23/24 08:00 Lidocaine 1% 50 Ml Vial INTRADERMA PREOP PRN Venipuncture x 1 Dose Magnesium Hydroxide 30 ml 12/22/24 11:12 Magnesium Hydroxide Susp 30 Ml Udc PO 12/22/25 11:11 DAILY PRN Constipation Metoprolol Succinate 100 mg 12/22/24 09:00 12/24/24 08:38 Metoprolol Succinate 100 Mg Tab.Er.24h PO 12/22/25 08:59 Not Given DAILY FERN Multivitamins 1 tab 12/23/24 09:00 12/24/24 08:37 Multivitamin 1 Tab Tablet PO 12/23/25 08:59 1 tab DAILY FERN Administration Ondansetron HCl 4 mg 12/22/24 11:12 12/23/24 08:58 Ondansetron 4 Mg/2 Ml Vial IV-PUSH 12/22/25 11:11 4 mg Q6H PRN Administration Nausea And Vomiting Oxycodone HCl 5 mg 12/22/24 11:12 12/24/24 11:36 Oxycodone Ir 5 Mg Tablet PO 5 mg Q4HR PRN Administration Pain Scale 1 - 5 Oxycodone HCl 10 mg 12/22/24 11:12 Oxycodone Ir 5 Mg Tablet PO Q4HR PRN Pain Scale 6 - 10 Polyethylene Glycol 17 gm 12/22/24 09:00 12/24/24 08:38 Polyethylene Glycol 3350 17 Gm Powd.Pack PO 12/22/25 08:59 17 gm DAILY FERN Administration Sennosides 17.2 mg 12/22/24 09:00 12/24/24 08:37 Sennosides 8.6 Mg Tablet PO 12/22/25 08:59 17.2 mg BID FERN Administration Sodium Chloride 0 ml 12/22/24 11:12 Sodium Chloride 0.9 % 10 Ml Syringe IV-PUSH 12/22/25 11:11 PRN PRN Flush A&P - Hospitalist Assessment/Plan (1) Femoral neck fracture: Plan: ? Status post HERRERA on right hip on December 23, 2024 ? Orthopedic surgery to manage ? Pain control as ordered (2) Stage 4 chronic kidney disease: Plan: Kidney function is stable, creatinine did trend up today ? Will consult nephrology ? His blood pressure is currently 9453, ideally I would like to initiate his Lasix therapy but his blood pressure will not allow me at this point in time. This was explained to the family. (3) Type 2 diabetes mellitus with hyperglycemia: Plan: ? A diabetic diet, his glucose is within appropriate ranges on morning BMP (4) Paroxysmal atrial fibrillation: Plan: ? Continue Eliquis per orthopedics discretion (5) Aspiration pneumonia: Plan: Continue switch Unasyn to Augmentin and continue Zithromycin for a total of 5- day treatment Plan ? DVT prophylaxis addressed ? Diabetic diet ? Full code Discharge pending inpatient rehab Documented By: Emile Reynolds DO 12/24/24 1407 Signed By: <Electronically signed by Emile Reynolds DO> 12/24/24 1412 [facility] Work Phone: [phone]) 746-311903-11-2025 [place] [id number] Ne[place] Consult Note Signed Patient: Delano Ren MR#: [id number] : 1940 Acct:[id number] Age/Sex: 84 / M Adm Date: 5 Loc: Room: [address] [place] [address] Type: ADM IN Attending Dr: Emile Reynolds DO Copies to: MD Yas Rosado DO Shawn J Warner, DO~ Providers Consult Date: 12/24/24 Requesting Provider: Emile Reynolds DO Primary Care Provider: Yas Linda DO HPI Reason for Consult: WICHO on CKD management History of Present Illness: This is a 84-year-old male with a medical history of DM, HTN, A-fib, CKD, HFrEF,HLD and anemia was presented to the emergency room after mechanical fall. Patient on evaluation in the emergency room was found to have right hip fracture. Orthopedic was consulted and patient was taken to the OR on 12/23for surgery. On presentation his serum creatinine was 3.2 mg/dL which went downto 2.6 mg/dL with IV fluid resuscitation and holding his Lasix. Patient postoperatively was found to have a relative hypotension and his serum creatinine this morning went up to 3.4 mg/dL. Patient has a longstanding hypertension and was taking multiple antihypertensive medication including amlodipine, hydralazine,metoprolol, Isordil and Lasix. His hospital course wasalso complicated by pneumonia and was startedon antibiotics for aspiration pneumonia. Patient also was found to have a worsening anemia his hemoglobin dropped from his baseline 11.7 on presentation to 8.7 g/dL. Nephrology is consulted for WICHO on CKD management. Patient was seen and examined bedside. Hereported that he has CKD [facility]. He reported longstanding DM remaining on diet control but denies any history of diabetic retinopathy. Review of Systems Review of Systems All other systems reviewed & are negative unless noted below or in HPI Review of systems: Cardiovascular: denies any chest pain, palpitation Pulmonary: denies any cough, hemoptysis Gastrointestinal: denies any nausea, vomiting, diarrhea Neurological :denies any headache, numbness, weakness Endocrine: denies any polyuria, polydipsia Dermatological: denies any itching or rash [facility] Medical History (Updated 12/24/24 @ 15:28 by Zahida Flowers MD) Former smoker quit at age ~44 COPD (chronic obstructive pulmonary disease) cpap use Screening PSA (prostate specific antigen) PSA: 0.91 - 07/2024 Chronic bronchitis, simple Chronic HFrEF (heart failure with reduced ejection fraction) Echo: LVEF 25%, RV reduced function, RVSP 61, SANJAY, mod MR - 02/2023 Type 2 diabetes mellitus with hyperglycemia Thyrotoxicosis Stage 4 chronic kidney disease Pulmonary hypertension Psoas abscess Primary hypertension Paroxysmal atrial fibrillation Ablation - 10/2019 Cardioversion - 10/2024 Obstructive sleep apnea Nonischemic dilated cardiomyopathy LHC: nonobstructive coronary disease - 2016 s/p ICD - 10/2019, BiV ICD - 05/2023 Lumbar spondylosis 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 Hypokalemia Hyperuricemia Hypertensive chronic kidney disease with stage 1 through stage 4 chronic kidney disease, or unspecified chronic kidney disease Hyperlipidemia type II Complete heart block Chronic venous insufficiency Hyperthyroidism Hyperlipidemia Chicken pox Arthritis Anemia Wears hearing aid in left ear Colon cancer Hemicolectomy 08/2021, Surveillance colonoscopy 07/2022 (repeat 2 years) Hypercholesteremia Coronary artery disease A-fib hx ablation Surgical History Hx of tonsillectomy Hx of cardiac catheterization (~2015) Biventricular ICD (implantable cardioverter-defibrillator) in place (~05/2023) H/O cardiac radiofrequency ablation H/O right hemicolectomy (~08/2021) H/O colonoscopy (~08/2024) 07/2022, 08/2024 w/ plan to repeat 2 years History of right heart catheterization (RHC) History of left knee replacement Pacemaker Family History Father CHF (congestive heart failure) Heart disease Mother Diabetes mellitus, type 2 Heart disease Brother Cancer Son Blackfan Glo anemia Social History Smoking Status: Never smoker Tobacco Type: cigarettes Substance Use Type: None Meds Medications & Allergies Allergies simvastatin Allergy (Unknown, Verified 12/19/24 08:50) Unknown Reaction Eowirze-MOH-PzW Reductase Inhibitor (Sgitkoe-Ltf-Hug Reductase Inhibitor) Allergy (Unknown, Verified 12/19/24 08:50) Muscle Pain tramadol Allergy (Verified 12/19/24 08:50) Itching niacin ER Allergy (Uncoded 08/22/24 08:31) itching Home Medications hydralazine 100 mg tablet 100 mg PO TID 30 days #90 tabs 06/09/21 [Rx Confirmed 12/21/24] niacin 500 mg tablet 500 mg PO DAILY 30 days #30 tabs 06/09/21 [Rx Confirmed 12/21/24] amlodipine 10 mg tablet 10 mg PO DAILY 07/21/22 [History Confirmed 12/21/24] isosorbide dinitrate 10 mg tablet 10 mg PO TID 07/21/22 [History Confirmed 12/21/24] apixaban 2.5 mg tablet (Eliquis) 2.5 mg PO BID 03/03/23 [History Confirmed 12/21/24] blood sugar diagnostic (Contour Next Test Strips) 12/15/23 [History Confirmed 12/19/24] cholecalciferol (vitamin D3) 125 mcg (5,000 unit) tablet 5,000 unit PO DAILY 12/15/23 [History Confirmed 12/21/24] metoprolol succinate 100 mg tablet,extended release 24 hr 100 mg PO DAILY 12/15/23 [History Confirmed 12/21/24] furosemide 80 mg tablet 80 mg PO DAILY 30 days #30 tabs 12/18/23 [Rx Confirmed 12/21/24] fluticasone fur. 200 mcg-umeclid 62.5 mcg-vilant 25 mcg inhalat.powder (Trelegy Ellipta) 1 inh inhalation DAILY 90 days #90 ea 02/15/24 [Rx Confirmed 12/21/24] ezetimibe 10 mg tablet 10 mg PO DAILY 03/01/24 [History Confirmed 12/21/24] allopurinol 100 mg tablet 100 mg PO DAILY 90 days #90 tabs 06/05/24 [Rx Confirmed 12/21/24] acetaminophen 500 mg tablet (Acetaminophen Extra Strength) 1,000 mg PO DIRECTED PRN pain 08/12/24 [History Confirmed 12/21/24] losartan 25 mg tablet 25 mg PO DAILY 08/12/24 [History Confirmed 12/21/24] potassium chloride 10 mEq tablet,extended release(part/cryst) See Rx Instructions .Route .COMPLEX #90 tabs 10/15/24 [Rx Confirmed 12/21/24] amiodarone 200 mg tablet 200 mg PO DAILY 11/08/24 [History Confirmed 12/21/24] Active Medications: Active Medications Acetaminophen (Acetaminophen 325 Mg Tablet) 650 mg PO Q4H PRN PRN Reason: Pain Scale 1 - 5 Stop: 12/21/25 22:29 Last Admin: 12/23/24 07:59 Dose: 650 mg Acetaminophen (Acetaminophen 500 Mg Tablet) 1,000 mg PO Q8H PRN PRN Reason: Fever or Pain Stop: 12/22/25 11:11 Last Admin: 12/24/24 08:37 Dose: 1,000 mg Albuterol (Albuterol Neb 2.5 Mg/3 Ml Vial.Neb) 2.5 mg INHALATION Q2H PRN PRN Reason: Shortness Of Breath Stop: 12/21/25 22:29 Allopurinol (Allopurinol 100 Mg Tablet) 100 mg PO DAILY REPLACED BY [facility] Stop: 12/22/25 08:59 Last Admin: 12/24/24 08:37 Dose: 100 mg Amiodarone HCl (Amiodarone 200 Mg Tablet) 200 mg PO DAILY REPLACED BY [facility] Stop: 12/22/25 08:59 Last Admin: 12/24/24 08:37 Dose: 200 mg Amlodipine Besylate (Amlodipine 10 Mg Tablet) 10 mg PO DAILY REPLACED BY [facility] Stop: 12/22/25 08:59 Last Admin: 12/24/24 08:38 Dose: Not Given Amoxicillin/Clavulanate Potassium (Amoxicillin/Clav 500-125 Mg Tablet) 1 tab POBID REPLACED BY [facility] Stop: 12/28/24 20:59 Ascorbic Acid (Ascorbic Acid 500 Mg Tablet) 500 mg PO DAILY REPLACED BY [facility] Stop: 12/23/25 08:59 Last Admin: 12/24/24 08:37 Dose: 500 mg Azithromycin (Azithromycin 250 Mg Tablet) 500 mg PO Q24H REPLACED BY [facility] Stop: 12/28/24 23:00 Calcium Carbonate (Calcium Carbonate/Vitamin D3 500 Mg/200 Unit Tablet) 1 tab PO TID.WITH.MEALS REPLACED BY [facility] Stop: 12/22/25 11:59 Last Admin: 12/24/24 11:36 Dose: 1 tab Diphenhydramine HCl (Diphenhydramine 25 Mg Capsule) 25 mg PO Q6H PRN PRN Reason: Itching Stop: 12/23/25 13:12 Docusate Sodium (Docusate 100 Mg Capsule) 200 mg PO BID PRN PRN Reason: Constipation Stop: 12/21/25 22:29 Docusate Sodium (Docusate 100 Mg Capsule) 100 mg PO BID REPLACED BY [facility] Stop: 12/23/25 20:59 Last Admin: 12/24/24 08:37 Dose: 100 mg Fluticasone/Umeclidinium/Vilanterol (Fluticas/Umeclidin/Vilanter 200-62.5-25 Mcg28 Puff Inhaler *Nf*) 1 puff INHALATION DAILY REPLACED BY [facility] Stop: 12/23/25 08:59 Last Admin: 12/24/24 08:38 Dose: 1 puff Furosemide (Furosemide 80 Mg Tablet) 80 mg PO DAILY REPLACED BY [facility] Stop: 12/24/25 12:14 Last Admin: 12/24/24 13:35 Dose: Not Given Hydralazine HCl (Hydralazine 20 Mg/Ml Vial) 10 mg IV-PUSH Q4H PRN PRN Reason: if SBP > 185 Stop: 12/21/25 22:29 Hydralazine HCl (Hydralazine 50 Mg Tablet) 100 mg PO TID REPLACED BY [facility] Stop: 12/22/25 08:59 Last Admin: 12/24/24 13:35 Dose: Not Given Hydromorphone HCl (Hydromorphone 1 Mg/Ml Syringe) 0.25 mg IV-PUSH Q4H PRN PRN Reason: pain Last Admin: 12/22/24 09:42 Dose: 0.25 mg Hydromorphone HCl (Hydromorphone 0.5 Mg/0.5 Ml Syringe) 0.5 mg IV-PUSH Q2H PRN PRN Reason: Pain Scale 1 - 3 Last Admin: 12/23/24 08:45 Dose: 0.5 mg Hydromorphone HCl (Hydromorphone 1 Mg/Ml Syringe) 1 mg IV-PUSH Q2H PRN PRN Reason: Pain Scale 4 - 6 Sodium Chloride (0.9% Sodium Chloride 1,000 Ml) 1,000 mls @ 70 mls/hr IV .[id number] REPLACED BY [facility] Stop: 12/23/25 00:04 Last Admin: 12/24/24 06:38 Dose: Not Given Isosorbide Dinitrate (Isosorbide Dinitrate 10 Mg Tablet) 10 mg PO TID REPLACED BY [facility] Stop: 12/22/25 08:59 Last Admin: 12/24/24 13:35 Dose: Not Given Lidocaine HCl (Lidocaine 1% 50 Ml Vial) 0.1 ml INTRADERMA PREOP PRN PRN Reason: Venipuncture x 1 Dose Magnesium Hydroxide (Magnesium Hydroxide Susp 30 Ml Udc) 30 ml PO DAILY PRN PRN Reason: Constipation Stop: 12/22/25 11:11 Metoprolol Succinate (Metoprolol Succinate 100 Mg Tab.Er.24h) 100 mg PO DAILY REPLACED BY [facility] Stop: 12/22/25 08:59 Last Admin: 12/24/24 08:38 Dose: Not Given Multivitamins (Multivitamin 1 Tab Tablet) 1 tab PO DAILY REPLACED BY [facility] Stop: 12/23/25 08:59 Last Admin: 12/24/24 08:37 Dose: 1 tab Ondansetron HCl (Ondansetron 4 Mg/2 Ml Vial) 4 mg IV-PUSH Q6H PRN PRN Reason: Nausea And Vomiting Stop: 12/22/25 11:11 Last Admin: 12/23/24 08:58 Dose: 4 mg Oxycodone HCl (Oxycodone Ir 5 Mg Tablet) 5 mg PO Q4HR PRN PRN Reason: Pain Scale 1 - 5 Last Admin: 12/24/24 11:36 Dose: 5 mg Oxycodone HCl (Oxycodone Ir 5 Mg Tablet) 10 mg PO Q4HR PRN PRN Reason: Pain Scale 6 - 10 Polyethylene Glycol (Polyethylene Glycol 3350 17 Gm Powd.Pack) 17 gm PO DAILY REPLACED BY [facility] Stop: 12/22/25 08:59 Last Admin: 12/24/24 08:38 Dose: 17 gm Sennosides (Sennosides 8.6 Mg Tablet) 17.2 mg PO BID REPLACED BY [facility] Stop: 12/22/25 08:59 Last Admin: 12/24/24 08:37 Dose: 17.2 mg Sodium Chloride (Sodium Chloride 0.9 % 10 Ml Syringe) 0 ml IV-PUSH PRN PRN PRN Reason: Flush Stop: 12/22/25 11:11 Exam Physical Exam Vital Signs: Temp Pulse Resp BP Pulse Ox O2 Del Method O2 Flow Rate 98.4 F 56 L 13 94/53 L 95 Nasal Cannula 4 12/24/24 11:54 12/24/24 11:54 12/24/24 11:54 12/24/24 11:54 12/24/24 11:54 12/24/24 11:54 12/24/24 11:54 FiO2 40 12/24/24 03:09 Narrative: General: Appears comfortable and not in distress Heart: S1-S2, no rub Lung: Bilateral air entry, no wheezing or crackles Abdomen: Soft, positive bowel sounds Extremities: No edema, no cyanosis Head: Atraumatic, normocephalic Ear: No gross hearing Deficit or external ear redness Eyes: No pallor or redness Neck: No JVD or visible mass Skin: No rashes , warm to touch KOSHER INSPECTOR: Awake,Alert, following simple command Musculoskeletal: No swelling or limitation of movement of the large joints Psychiatric: Cooperative, normal mood and affect Results - Nephrology Labs 12/24/24 05:47 12/24/24 05:47 Labs: 12/24/24 05:47 BUN 70 H Creatinine 3.40 H Radiology Impressions Impressions - last 24 hours: Impressions Chest X-Ray 12/23/24 20:53 IMPRESSION: Improving right midlung parenchymal density. Impression dictated by: Dominik Hamm M.D.12/23/2024 9:17 PM Dictation Location: [place] [address] Any impression(s) listed above is documentation that was entered by the reading physician into a diagnostic report(s) for Delano Ren. I have reviewed the report(s) and am incorporating any findings in the treatment plan of this patient where applicable. A&P - Nephrology Assessment/Plan (1) Acute kidney injury superimposed on CKD: Assessment/Problem Details: He has WICHO on CKD likely due to the relative hypotension and postoperative bloodloss anemia. (2) Stage 4 chronic kidney disease: Assessment/Problem Details: He has a longstanding CKD due to the DM and HTN with baseline serum creatinine around 2.6-3 mg/dL. (3) Hypertensive chronic kidney disease with stage 1 through stage 4 chronic kidney disease, or unspecified chronic kidney disease: Assessment/Problem Details: His blood pressures has been running relatively low. He is on multiple antihypertensive medication including amlodipine, hydralazine, furosemide, metoprolol, Isordil. (4) Acute on chronic anemia: Assessment/Problem Details: He has acute on chronic anemia due to the blood loss anemia. (5) Aspiration pneumonia: Assessment/Problem Details: Patient was found to have aspiration pneumonia. Currently on antibiotics. (6) Chronic HFrEF (heart failure with reduced ejection fraction): Assessment/Problem Details: He appears to be well compensated. He was taking Lasix at home. (7) Type 2 diabetes mellitus with hyperglycemia: Assessment/Problem Details: He has qna-vuguaxs-sjybdmeip type 2 diabetes mellitus currently on diet control. Plan * No need for emergent hemodialysis now. Will continue to assess its needs on regular basis. * Hold amlodipine * Will hold furosemide * Will continue gentle fluid resuscitation with normal saline. * Continue antibiotics for pneumonia as per the primary team. * Will continue hydralazine, Isordil and metoprolol. * Monitor H&H and transfuse as needed to keep the hemoglobin greater than 8 g/dL. * Check renal function daily and monitor for output * Thanks for consult. Will continue follow-up with you. Please feel free to call us with any question. Documented By: Zahida Flowers MD 12/24/24 1515 Signed By: 12/24/24 1548 [facility]03-11-2025 Progress note Author Krysten Bowers [facility] Note Date/Time December 24, 2024 1:0 4pm [facility] [address] [place] [address] Cardiology Progress Note Signed Patient: Delano Ren MR#: [id number] : 1940 Acct:[id number] Age/Sex: 84 / M Adm Date: 5 Loc: 4N Room: 1L0625-7 Type: ADM IN Attending Dr: Emile Reynolds DO Copies to: ~ Date of Service: 12/24/2024 Subjective Interval history: Mr. 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 Prior to the fall, he denied any chest pain, dyspnea, palpitations, lightheadedness or syncope. He follows with cardiology at [facility] and was last seen in October when he had a cardioversion. He is maintained on Eliquis and amiodarone. He denies recent BLE edema, orthopnea, PND or weight gain. He is compliant on all his medications. He is able to walk up a flight of stairs without any dyspnea and perform his own ADLs without any issues. No ICD shocks reported. ECHO 09/19/2024 showed EF of 35-40% with mild LV dilatation, biatrial enlargement, RVSP of 49 mmHg. Interim evaluation 12/24/2024: Pt underwent R hip hemiarthroplasty yesterday. Post op he developed fever and hypoxia and was started empirically on antibiotics. Creatinine up to 3.4 today. He received IV fluids and now has increased urine output. Denies chest pain, dyspnea or palpitations. Exam Physical Exam Vital Signs: Temp Pulse Resp BP Pulse Ox O2 Del Method O2 Flow Rate 98.4 F 56 L 13 94/53 L 95 Nasal Cannula 4 12/24/24 11:54 12/24/24 11:54 12/24/24 11:54 12/24/24 11:54 12/24/24 11:54 12/24/24 11:54 12/24/24 11:54 FiO2 40 12/24/24 03:09 Narrative: GEN: AAOx3. No acute distress. Neck: No JVD. Lungs: Clear to auscultation bilaterally Heart: Regular rate and rhythm. Normal S1 and S2. No murmurs or rubs appreciated. Abdomen: Soft, nontender, nondistended, bowel sounds present. Extremities: No BLE edema. Neuro: AAOx3. No focal deficits. Objective Labs 12/24/24 05:47 12/24/24 05:47 Labs: Laboratory Results - last 24 hr 12/23/24 12/23/24 12/23/24 13:23 18:54 21:12 Corrected WBC 12.5 H Uncorrected WBC Count 12.5 H RBC 3.09 L Hgb 9.9 L Hct 29.5 L MCV 95.5 MCH 31.9 MCHC 33.4 RDW 14.8 Plt Count 149 L MPV 7.5 Neut % (Auto) 89.8 Lymph % (Auto) 3.3 Reagan % (Auto) 6.6 Eos % (Auto) 0.1 Baso % (Auto) 0.2 Nucleat RBC Rel Count 0.0 Neut # (Auto) 11.3 H Lymph # (Auto) 0.4 L Reagan # (Auto) 0.8 Eos # (Auto) 0.0 Baso # (Auto) 0.0 Sample Site Right radial ABG pH 7.41 ABG pCO2 37.6 ABG pO2 170.6 H* ABG HCO3 23.5 ABG Total CO2 24.6 ABG O2 Saturation 98.8 ABG O2 Content 6.4 L ABG Base Excess -0.9 O2 Delivery Device Bipap FiO2 100 PEEP 6 Pressure Support 6.0 Critical Value PHA Creatinine Clear Sodium Potassium Chloride Carbon Dioxide Anion Gap BUN Creatinine Est GFR (CKD-EPI) Glucose POC Glucose 145 Calcium Magnesium 12/24/24 05:47 Corrected WBC 10.8 H Uncorrected WBC Count RBC 2.64 L Hgb 8.7 L Hct 25.3 L MCV 95.5 MCH 32.8 MCHC 34.3 RDW 14.2 Plt Count 143 L MPV 7.7 Neut % (Auto) Lymph % (Auto) Reagan % (Auto) Eos % (Auto) Baso % (Auto) Nucleat RBC Rel Count Neut # (Auto) Lymph # (Auto) Reagan # (Auto) Eos # (Auto) Baso # (Auto) Sample Site ABG pH ABG pCO2 ABG pO2 ABG HCO3 ABG Total CO2 ABG O2 Saturation ABG O2 Content ABG Base Excess O2 Delivery Device FiO2 PEEP Pressure Support Critical Value PHA Creatinine Clear 20.11 Sodium 138 Potassium 4.3 Chloride 101 Carbon Dioxide 30.1 Anion Gap 11.2 BUN 70 H Creatinine 3.40 H Est GFR (CKD-EPI) 17.303 Glucose 158 H POC Glucose Calcium 7.7 L Magnesium 2.4 A&P - Cardiology (1) Femoral neck fracture: Code(s): S72.009A - Fracture of unspecified part of neck of unspecified femur, initial encounter for closed fracture (2) Chronic HFrEF (heart failure with reduced ejection fraction): Code(s): I50.22 - Chronic systolic (congestive) heart failure (3) Type 2 diabetes mellitus with hyperglycemia: Qualifiers: Diabetes mellitus middle or intermediate school principal insulin use: without mcc use Qualified Code(s): E11.65 - Type 2 diabetes mellitus with hyperglycemia Code(s): E11.65 - Type 2 diabetes mellitus with hyperglycemia (4) Primary hypertension: Code(s): I10 - Essential (primary) hypertension (5) Stage 4 chronic kidney disease: Code(s): N18.4 - Chronic kidney disease, stage 4 (severe) (6) Paroxysmal atrial fibrillation: Code(s): I48.0 - Paroxysmal atrial fibrillation (7) Obstructive sleep apnea: Code(s): G47.33 - Obstructive sleep apnea (adult) (pediatric) Plan Assessment: Preop cardiac risk stratification History of atrial flutter and atrial fibrillation status post ablation and recent cardioversion Nonischemic dilated cardiomyopathy status post BiV ICD Hypertension Hyperlipidemia DM2 CKD 4 Echo 09/19/2024 showed EF of 35-40% with mild LV dilatation, biatrial enlargement, RVSP of 49 mmHg. Recommendations: - POD1 s/p R hip hemiarthroplasty. Hemodynamically stable. Currently on empiric antibiotics for pneumonia coverage. - Encourage PO fluid intake for WICHO. May resume home BP meds as BP improves. - Cardiology will see again as needed. - Follow up with cardiology at [facility]. Documented By: Krysten Bowers MD 12/24/24 1255 Signed By: <Electronically signed by Krysten Bowers MD> 12/24/24 1302 [facility] Work Phone: [phone]) 735-744703-11-2025 [place] [address] Hospitalist Progress Note Signed Patient: Delano Ren MR#: [id number] : 1940 Acct:[id number] Age/Sex: 84 / M Adm Date: 5 Loc: Room: [address] [place] [address] Type: ADM IN Attending Dr: Emile Reynolds DO Copies to: ~ Date of Service: 12/24/2024 Subjective Subjective Narrative: Evaluated this morning, patient was placed on BiPAP overnight due to a little bit of hypoxia however this morning he is saturating well on 5 L, he is in no distress in bed and appears very comfortable. His oxygen was titrated down to 4L. On chart review he has a history of COPD, heart failure with reduced ejection fraction of 35 to 40%, pulmonary hypertension with an RVSP of 49. I did have a longdiscussion with the patient and his family regarding his numerous risk factors for postop hypoxia after receiving IV fluids. ABG from last night was reviewed. Patient is comfortable this morning. Allquestions and concerns were answered. Exam Physical Exam Vital Signs: Temp Pulse Resp BP Pulse Ox O2 Del Method O2 Flow Rate 98.4 F 56 L 13 94/53 L 95 Nasal Cannula 4 12/24/24 11:54 12/24/24 11:54 12/24/24 11:54 12/24/24 11:54 12/24/24 11:54 12/24/24 11:54 12/24/24 11:54 FiO2 40 12/24/24 03:09 Narrative: General: Awake alert, no acute distress HEENT: head atraumatic, normocephalic, moist mucous membranes Neck: supple no masses, no lymphadenopathy CVS: regular rate and rhythm, no murmurs or gallops Respiratory: clear to auscultation bilaterally, no wheezing or crackles, symmetric expansion GI: soft, nondistended, nontender, positive bowel sounds with no organomegaly Extremity: moves all extremities, no restrictions of movements, no calf tenderness, no edema Neuro: AOx3, CN II-VII intact. Moves all extremities in all planes of motion. Skin: dry, intact no rashes or lesions Objective Lab Results 12/24/24 05:47 12/24/24 05:47 Meds Allergies and Active Meds Allergies simvastatin Allergy (Unknown, Verified 12/19/24 08:50) Unknown Reaction Yijmwcb-ECN-SmE Reductase Inhibitor (Jxytmnn-Oiu-Yqe Reductase Inhibitor) Allergy (Unknown, Verified 12/19/24 08:50) Muscle Pain tramadol Allergy (Verified 12/19/24 08:50) Itching niacin ER Allergy (Uncoded 08/22/24 08:31) itching Active Meds: Active Medications Generic Name Dose Route Start Last Admin Trade Name Freq PRN Reason Stop Dose Admin Acetaminophen 650 mg 12/21/24 22:30 12/23/24 07:59 Acetaminophen 325 Mg Tablet PO 12/21/25 22:29 650 mg Q4H PRN Administration Pain Scale 1 - 5 Acetaminophen 1,000 mg 12/22/24 11:12 12/24/24 08:37 Acetaminophen 500 Mg Tablet PO 12/22/25 11:11 1,000 mg Q8H PRN Administration Fever or Pain Albuterol 2.5 mg 12/21/24 22:30 Albuterol Neb 2.5 Mg/3 Ml Vial.Neb INHALATION 12/21/25 22:29 Q2H PRN Shortness Of Breath Allopurinol 100 mg 12/22/24 09:00 12/24/24 08:37 Allopurinol 100 Mg Tablet PO 12/22/25 08:59 100 mg DAILY FERN Administration Amiodarone HCl 200 mg 12/22/24 09:00 12/24/24 08:37 Amiodarone 200 Mg Tablet PO 12/22/25 08:59 200 mg DAILY FERN Administration Amlodipine Besylate 10 mg 12/22/24 09:00 12/24/24 08:38 Amlodipine 10 Mg Tablet PO 12/22/25 08:59 Not Given DAILY FERN Amoxicillin/Clavulanate Potassium 1 tab 12/24/24 21:00 Amoxicillin/Clav 500-125 Mg Tablet PO 12/28/24 20:59 BID FERN Ascorbic Acid 500 mg 12/23/24 09:00 12/24/24 08:37 Ascorbic Acid 500 Mg Tablet PO 12/23/25 08:59 500 mg DAILY FERN Administration Azithromycin 500 mg 12/24/24 16:00 Azithromycin 250 Mg Tablet PO 12/28/24 23:00 Q24H FERN Calcium Carbonate 1 tab 12/22/24 12:00 12/24/24 11:36 Calcium Carbonate/Vitamin D3 500 Mg/200 Unit Tablet PO 12/22/25 11:59 1 tab TID.WITH.MEALS FERN Administration Diphenhydramine HCl 25 mg 12/23/24 13:13 Diphenhydramine 25 Mg Capsule PO 12/23/25 13:12 Q6H PRN Itching Docusate Sodium 200 mg 12/21/24 22:30 Docusate 100 Mg Capsule PO 12/21/25 22:29 BID PRN Constipation Docusate Sodium 100 mg 12/23/24 21:00 12/24/24 08:37 Docusate 100 Mg Capsule PO 12/23/25 20:59 100 mg BID FERN Administration Fluticasone/Umeclidinium/Vilanterol 1 puff 12/23/24 09:00 12/24/24 08:38 Fluticas/Umeclidin/Vilanter 200-62.5-25 Mcg 28 Puff Inhaler *Nf* INHALATION 12/23/25 08:59 1 puff DAILY FERN Administration Furosemide 80 mg 12/24/24 12:15 12/24/24 13:35 Furosemide 80 Mg Tablet PO 12/24/25 12:14 Not Given DAILY FERN Hydralazine HCl 10 mg 12/21/24 22:30 Hydralazine 20 Mg/Ml Vial IV-PUSH 12/21/25 22:29 Q4H PRN if SBP > 185 Hydralazine HCl 100 mg 12/22/24 09:00 12/24/24 13:35 Hydralazine 50 Mg Tablet PO 12/22/25 08:59 Not Given TID FERN Hydromorphone HCl 0.25 mg 12/21/24 22:30 12/22/24 09:42 Hydromorphone 1 Mg/Ml Syringe IV-PUSH 0.25 mg Q4H PRN Administration pain Hydromorphone HCl 0.5 mg 12/22/24 11:12 12/23/24 08:45 Hydromorphone 0.5 Mg/0.5 Ml Syringe IV-PUSH 0.5 mg Q2H PRN Administration Pain Scale 1 - 3 Hydromorphone HCl 1 mg 12/22/24 11:12 Hydromorphone 1 Mg/Ml Syringe IV-PUSH Q2H PRN Pain Scale 4 - 6 Lactated Ringer's 1,000 mls @ 75 mls/hr 12/23/24 00:00 12/24/24 06:39 Lactated Ringers IV 12/23/25 00:00 Not Given .[id number] FERN Sodium Chloride 1,000 mls @ 70 mls/hr 12/23/24 00:05 12/24/24 06:38 0.9% Sodium Chloride 1,000 Ml IV 12/23/25 00:04 Not Given .[id number] FERN Isosorbide Dinitrate 10 mg 12/22/24 09:00 12/24/24 13:35 Isosorbide Dinitrate 10 Mg Tablet PO 12/22/25 08:59 Not Given TID FERN Lidocaine HCl 0.1 ml 12/23/24 08:00 Lidocaine 1% 50 Ml Vial INTRADERMA PREOP PRN Venipuncture x 1 Dose Magnesium Hydroxide 30 ml 12/22/24 11:12 Magnesium Hydroxide Susp 30 Ml Udc PO 12/22/25 11:11 DAILY PRN Constipation Metoprolol Succinate 100 mg 12/22/24 09:00 12/24/24 08:38 Metoprolol Succinate 100 Mg Tab.Er.24h PO 12/22/25 08:59 Not Given DAILY FERN Multivitamins 1 tab 12/23/24 09:00 12/24/24 08:37 Multivitamin 1 Tab Tablet PO 12/23/25 08:59 1 tab DAILY FERN Administration Ondansetron HCl 4 mg 12/22/24 11:12 12/23/24 08:58 Ondansetron 4 Mg/2 Ml Vial IV-PUSH 12/22/25 11:11 4 mg Q6H PRN Administration Nausea And Vomiting Oxycodone HCl 5 mg 12/22/24 11:12 12/24/24 11:36 Oxycodone Ir 5 Mg Tablet PO 5 mg Q4HR PRN Administration Pain Scale 1 - 5 Oxycodone HCl 10 mg 12/22/24 11:12 Oxycodone Ir 5 Mg Tablet PO Q4HR PRN Pain Scale 6 - 10 Polyethylene Glycol 17 gm 12/22/24 09:00 12/24/24 08:38 Polyethylene Glycol 3350 17 Gm Powd.Pack PO 12/22/25 08:59 17 gm DAILY FERN Administration Sennosides 17.2 mg 12/22/24 09:00 12/24/24 08:37 Sennosides 8.6 Mg Tablet PO 12/22/25 08:59 17.2 mg BID FERN Administration Sodium Chloride 0 ml 12/22/24 11:12 Sodium Chloride 0.9 % 10 Ml Syringe IV-PUSH 12/22/25 11:11 PRN PRN Flush A&P - Hospitalist Assessment/Plan (1) Femoral neck fracture: Plan: ? Status post HERRERA on right hip on December 23, 2024 ? Orthopedic surgery to manage ? Pain control as ordered (2) Stage 4 chronic kidney disease: Plan: Kidney function is stable, creatinine did trend up today ? Will consult nephrology ? His blood pressure is currently 9453, ideally I would like to initiate his Lasix therapy but his blood pressure will not allow me at this point in time. This was explained to the family. (3) Type 2 diabetes mellitus with hyperglycemia: Plan: ? A diabetic diet, his glucose is within appropriate ranges on morning BMP (4) Paroxysmal atrial fibrillation: Plan: ? Continue Eliquis per orthopedics discretion (5) Aspiration pneumonia: Plan: Continue switch Unasyn to Augmentin and continue Zithromycin for a total of 5- day treatment Plan ? DVT prophylaxis addressed ? Diabetic diet ? Full code Discharge pending inpatient rehab Documented By: Emile Reynolds DO 12/24/24 1407 Signed By: 12/24/24 1412 [facility]03-11-2025 [place] [address] Cardiology Progress Note Signed Patient: Delano Ren MR#: [id number] : 1940 Acct:[id number] Age/Sex: 84 / M Adm Date: 5 Loc: Room: [address] [place] [address] Type: ADM IN Attending Dr: Emile Reynolds DO Copies to: ~ Date of Service: 12/24/2024 Subjective Interval history: Mr. 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 Prior to the fall, he denied any chest pain, dyspnea, palpitations, lightheadedness or syncope. He follows with cardiology at [facility] and was last seen in October when he had a cardioversion. He is maintained on Eliquis and amiodarone. He denies recent BLE edema, orthopnea, PND or weight gain. He is compliant on all his medications. He is able to walk up a flight of stairs without any dyspnea and perform his own ADLs without any issues. No ICD shocks reported. ECHO 09/19/2024 showed EF of 35-40% with mild LV dilatation, biatrial enlargement, RVSP of 49 mmHg. Interim evaluation 12/24/2024: Pt underwent R hip hemiarthroplasty yesterday. Post op he developed fever and hypoxia and was started empirically on antibiotics. Creatinine up to 3.4 today. He receivedIV fluids and now has increased urine output. Denies chest pain, dyspnea or palpitations. Exam Physical Exam Vital Signs: Temp Pulse Resp BP Pulse Ox O2 Del Method O2 Flow Rate 98.4 F 56 L 13 94/53 L 95 Nasal Cannula 4 12/24/24 11:54 12/24/24 11:54 12/24/24 11:54 12/24/24 11:54 12/24/24 11:54 12/24/24 11:54 12/24/24 11:54 FiO2 40 12/24/24 03:09 Narrative: GEN: AAOx3. No acute distress. Neck: No JVD. Lungs: Clear to auscultation bilaterally Heart: Regular rate and rhythm. Normal S1 and S2. No murmurs or rubs appreciated. Abdomen: Soft, nontender, nondistended, bowel sounds present. Extremities: No BLE edema. Neuro: AAOx3. No focal deficits. Objective Labs 12/24/24 05:47 12/24/24 05:47 Labs: Laboratory Results - last 24 hr 12/23/24 12/23/24 12/23/24 13:23 18:54 21:12 Corrected WBC 12.5 H Uncorrected WBC Count 12.5 H RBC 3.09 L Hgb 9.9 L Hct 29.5 L MCV 95.5 MCH 31.9 MCHC 33.4 RDW 14.8 Plt Count 149 L MPV 7.5 Neut % (Auto) 89.8 Lymph % (Auto) 3.3 Reagan % (Auto) 6.6 Eos % (Auto) 0.1 Baso % (Auto) 0.2 Nucleat RBC Rel Count 0.0 Neut # (Auto) 11.3 H Lymph # (Auto) 0.4 L Reagan # (Auto) 0.8 Eos # (Auto) 0.0 Baso # (Auto) 0.0 Sample Site Right radial ABG pH 7.41 ABG pCO2 37.6 ABG pO2 170.6 H* ABG HCO3 23.5 ABG Total CO2 24.6 ABG O2 Saturation 98.8 ABG O2 Content 6.4 L ABG Base Excess -0.9 O2 Delivery Device Bipap FiO2 100 PEEP 6 Pressure Support 6.0 Critical Value PHA Creatinine Clear Sodium Potassium Chloride Carbon Dioxide Anion Gap BUN Creatinine Est GFR (CKD-EPI) Glucose POC Glucose 145 Calcium Magnesium 12/24/24 05:47 Corrected WBC 10.8 H Uncorrected WBC Count RBC 2.64 L Hgb 8.7 L Hct 25.3 L MCV 95.5 MCH 32.8 MCHC 34.3 RDW 14.2 Plt Count 143 L MPV 7.7 Neut % (Auto) Lymph % (Auto) Reagan % (Auto) Eos % (Auto) Baso % (Auto) Nucleat RBC Rel Count Neut # (Auto) Lymph # (Auto) Reagan # (Auto) Eos # (Auto) Baso # (Auto) Sample Site ABG pH ABG pCO2 ABG pO2 ABG HCO3 ABG Total CO2 ABG O2 Saturation ABG O2 Content ABG Base Excess O2 Delivery Device FiO2 PEEP Pressure Support Critical Value PHA Creatinine Clear 20.11 Sodium 138 Potassium 4.3 Chloride 101 Carbon Dioxide 30.1 Anion Gap 11.2 BUN 70 H Creatinine 3.40 H Est GFR (CKD-EPI) 17.303 Glucose 158 H POC Glucose Calcium 7.7 L Magnesium 2.4 A&P - Cardiology (1) Femoral neck fracture: Code(s): S72.009A - Fracture of unspecified part of neck of unspecified femur, initial encounter for closed fracture (2) Chronic HFrEF (heart failure with reduced ejection fraction): Code(s): I50.22 - Chronic systolic (congestive) heart failure (3) Type 2 diabetes mellitus with hyperglycemia: Qualifiers: Diabetes mellitus middle or intermediate school principal insulin use: without middle or intermediate school principal use Qualified Code(s): E11.65 - Type 2 diabetes mellitus with hyperglycemia Code(s): E11.65 - Type 2 diabetes mellitus with hyperglycemia (4) Primary hypertension: Code(s): I10 - Essential (primary) hypertension (5) Stage 4 chronic kidney disease: Code(s): N18.4 - Chronic kidney disease, stage 4 (severe) (6) Paroxysmal atrial fibrillation: Code(s): I48.0 - Paroxysmal atrial fibrillation (7) Obstructive sleep apnea: Code(s): G47.33 - Obstructive sleep apnea (adult) (pediatric) Plan Assessment: Preop cardiac risk stratification History of atrial flutter and atrial fibrillation status post ablation and recent cardioversion Nonischemic dilated cardiomyopathy status post BiV ICD Hypertension Hyperlipidemia DM2 CKD 4 Echo 09/19/2024 showed EF of 35-40% with mild LV dilatation, biatrial enlargement, RVSP of 49 mmHg. Recommendations: - POD1 s/p R hip hemiarthroplasty. Hemodynamically stable. Currently on empiric antibiotics for pneumonia coverage. - Encourage PO fluid intake for WICHO. May resume home BP meds as BP improves. - Cardiology will see again as needed. - Follow up with cardiology at [facility]. Documented By: Krysten Bowers MD 12/24/24 1255 Signed By: 12/24/24 1304 [facility]03-10-2025 Progress note Author Eimle Reynolds [facility] Note Date/Time December 23, 2024 4:1 5pm [facility] [address] [place] [address] Hospitalist Progress Note Signed Patient: Delano Ren MR#: [id number] : 1940 Acct:[id number] Age/Sex: 84 / M Adm Date: 5 Loc: Room: [address] [place] [address] Type: ADM IN Attending Dr: Emile Reynolds DO Copies to: ~ Date of Service: 12/23/2024 Subjective Subjective Narrative: Seen and evaluated, he is still having some pain in the right hip. I was alerted to requiring more oxygen this morning, at baseline he is on room air when he is at home however he is on 4 to 5 L nasal cannula as of this morning. He also had a slight fever of 100.8 Tmax. I did go to the bedside, patient is actually looking quite comfortable laying in the bed, he does not appear to be in respite distress at all. His family is present at bedside. I did explain the findings of the chest x-ray consistent with right sided opacity of the entire lung field which may to be concern for aspiration ammonia, patient is awake and alert, he is not coughing he denies any coughing recently, he has not had any problems with swallowing or or have a history of aspiration. The patient's family does endorse him having sleep apnea requiring CPAP, he has beengetting IV pain medications here. I do believe that his fever and hypoxia are related to atelectasis however givenhe is here for ORIF of his right hip requiring prosthetic, will initiate antibiotics to cover for aspiration and community-acquired pneumonia. Exam Physical Exam Vital Signs: Temp Pulse Resp BP Pulse Ox O2 Del Method O2 Flow Rate 97.6 F 64 16 105/61 88 L Simple Mask 68 12/23/24 14:10 12/23/24 14:12/23/24 14:25 12/23/24 14:12/23/24 14:12/23/24 14:12/23/24 14: FiO2 2 12/22/24 00:00 Narrative: General: Awake alert, no acute distress HEENT: head atraumatic, normocephalic, moist mucous membranes Neck: supple no masses, no lymphadenopathy CVS: regular rate and rhythm, no murmurs or gallops Respiratory: clear to auscultation bilaterally, no wheezing or crackles, symmetric expansion GI: soft, nondistended, nontender, positive bowel sounds with no organomegaly Extremity: moves all extremities, no restrictions of movements, no calf tenderness, no edema Neuro: AOx3, CN II-VII intact. Moves all extremities in all planes of motion. Skin: dry, intact no rashes or lesions Objective Lab Results 12/22/24 05:09 12/22/24 05:09 Meds Allergies and Active Meds Allergies simvastatin Allergy (Unknown, Verified 12/19/24 08:50) Unknown Reaction Wtmhtwj-KDC-ZwV Reductase Inhibitor (Nadpgry-Yaj-Cji Reductase Inhibitor) Allergy (Unknown, Verified 12/19/24 08:50) Muscle Pain tramadol Allergy (Verified 12/19/24 08:50) Itching niacin ER Allergy (Uncoded 08/22/24 08:31) itching Active Meds: Active Medications Generic Name Dose Route Start Last Admin Trade Name Freq PRN Reason Stop Dose Admin Acetaminophen 650 mg 12/21/24 22:30 12/23/24 07:59 Acetaminophen 325 Mg Tablet PO 12/21/25 22:29 650 mg Q4H PRN Administration Pain Scale 1 - 5 Acetaminophen 1,000 mg 12/22/24 11:12 Acetaminophen 500 Mg Tablet PO 12/22/25 11:11 Q8H PRN Fever or Pain Albuterol 2.5 mg 12/21/24 22:30 Albuterol Neb 2.5 Mg/3 Ml Vial.Neb INHALATION 12/21/25 22:29 Q2H PRN Shortness Of Breath Allopurinol 100 mg 12/22/24 09:00 12/23/24 08:47 Allopurinol 100 Mg Tablet PO 12/22/25 08:59 Not Given DAILY REPLACED BY [facility] Amiodarone HCl 200 mg 12/22/24 09:00 12/23/24 08:47 Amiodarone 200 Mg Tablet PO 12/22/25 08:59 Not Given DAILY REPLACED BY [facility] Amlodipine Besylate 10 mg 12/22/24 09:00 12/23/24 08:48 Amlodipine 10 Mg Tablet PO 12/22/25 08:59 Not Given DAILY REPLACED BY [facility] Ascorbic Acid 500 mg 12/23/24 09:00 12/23/24 08:48 Ascorbic Acid 500 Mg Tablet PO 12/23/25 08:59 Not Given DAILY REPLACED BY [facility] Calcium Carbonate 1 tab 12/22/24 12:00 12/23/24 12:33 Calcium Carbonate/Vitamin D3 500 Mg/200 Unit Tablet PO 12/22/25 11:59 Not Given TID.WITH.MEALS REPLACED BY [facility] Diphenhydramine HCl 25 mg 12/23/24 13:13 Diphenhydramine 25 Mg Capsule PO 12/23/25 13:12 Q6H PRN Itching Docusate Sodium 200 mg 12/21/24 22:30 Docusate 100 Mg Capsule PO 12/21/25 22:29 BID PRN Constipation Docusate Sodium 100 mg 12/23/24 21:00 Docusate 100 Mg Capsule PO 12/23/25 20:59 BID FERN Fluticasone/Umeclidinium/Vilanterol 1 puff 12/23/24 09:00 12/23/24 08:59 Fluticas/Umeclidin/Vilanter 200-62.5-25 Mcg 28 Puff Inhaler *Nf* INHALATION 12/23/25 08:59 1 puff DAILY REPLACED BY [facility] Administration Hydralazine HCl 10 mg 12/21/24 22:30 Hydralazine 20 Mg/Ml Vial IV-PUSH 12/21/25 22:29 Q4H PRN if SBP > 185 Hydralazine HCl 100 mg 12/22/24 09:00 12/23/24 08:48 Hydralazine 50 Mg Tablet PO 12/22/25 08:59 Not Given TID FERN Hydromorphone HCl 0.25 mg 12/21/24 22:30 12/22/24 09:42 Hydromorphone 1 Mg/Ml Syringe IV-PUSH 0.25 mg Q4H PRN Administration pain Hydromorphone HCl 0.5 mg 12/22/24 11:12 12/23/24 08:45 Hydromorphone 0.5 Mg/0.5 Ml Syringe IV-PUSH 0.5 mg Q2H PRN Administration Pain Scale 1 - 3 Hydromorphone HCl 1 mg 12/22/24 11:12 Hydromorphone 1 Mg/Ml Syringe IV-PUSH Q2H PRN Pain Scale 4 - 6 Lactated Ringer's 1,000 mls @ 75 mls/hr 12/23/24 00:00 12/22/24 23:39 Lactated Ringers IV 12/23/25 00:00 75 mls/hr .[id number] FERN Administration Sodium Chloride 1,000 mls @ 70 mls/hr 12/23/24 00:05 12/23/24 01:07 0.9% Sodium Chloride 1,000 Ml IV 12/23/25 00:04 Not Given .[id number] FERN Lactated Ringer's 1,000 mls @ 20 mls/hr 12/23/24 08:00 12/23/24 13:35 Lactated Ringers IV 12/24/24 07:59 20 mls/hr .Q24H ONE Infusion Ampicillin Sodium/Sulbactam Sodium 1.5 gm in 100 mls @ 200 mls/hr 12/23/24 11:30 12/23/24 12:14 Unasyn IV 200 mls/hr Q12H FERN Administration Azithromycin 500 mg in 250 mls @ 250 mls/hr 12/23/24 15:30 Zithromax IV Q24H FERN Isosorbide Dinitrate 10 mg 12/22/24 09:00 12/23/24 08:48 Isosorbide Dinitrate 10 Mg Tablet PO 12/22/25 08:59 Not Given TID FERN Lidocaine HCl 0.1 ml 12/23/24 08:00 Lidocaine 1% 50 Ml Vial INTRADERMA PREOP PRN Venipuncture x 1 Dose Magnesium Hydroxide 30 ml 12/22/24 11:12 Magnesium Hydroxide Susp 30 Ml Udc PO 12/22/25 11:11 DAILY PRN Constipation Metoprolol Succinate 100 mg 12/22/24 09:00 12/23/24 08:26 Metoprolol Succinate 100 Mg Tab.Er.24h PO 12/22/25 08:59 100 mg DAILY FERN Administration Multivitamins 1 tab 12/23/24 09:00 12/23/24 08:48 Multivitamin 1 Tab Tablet PO 12/23/25 08:59 Not Given DAILY FERN Ondansetron HCl 4 mg 12/22/24 11:12 12/23/24 08:58 Ondansetron 4 Mg/2 Ml Vial IV-PUSH 12/22/25 11:11 4 mg Q6H PRN Administration Nausea And Vomiting Oxycodone HCl 5 mg 12/22/24 11:12 Oxycodone Ir 5 Mg Tablet PO Q4HR PRN Pain Scale 1 - 5 Oxycodone HCl 10 mg 12/22/24 11:12 Oxycodone Ir 5 Mg Tablet PO Q4HR PRN Pain Scale 6 - 10 Polyethylene Glycol 17 gm 12/22/24 09:00 12/23/24 08:48 Polyethylene Glycol 3350 17 Gm Powd.Pack PO 12/22/25 08:59 Not Given DAILY FERN Sennosides 17.2 mg 12/22/24 09:00 12/23/24 08:48 Sennosides 8.6 Mg Tablet PO 12/22/25 08:59 Not Given BID FERN Sodium Chloride 0 ml 12/22/24 11:12 Sodium Chloride 0.9 % 10 Ml Syringe IV-PUSH 12/22/25 11:11 PRN PRN Flush A&P - Hospitalist Assessment/Plan (1) Femoral neck fracture: Plan: ? Status post HERRERA on right hip on December 23, 2024 ? Orthopedic surgery to manage ? Pain control as ordered ? Ideally, hold off on morphine if able to given he is having pain with atelectasis (2) Mucopurulent chronic bronchitis: Plan: He has dizziness history, I do wonder if this is playing a role in his current episodes of hypoxia though his lungs are clear to auscultation (3) Stage 4 chronic kidney disease: Plan: Kidney function is stable (4) Type 2 diabetes mellitus with hyperglycemia: Plan: ? After surgery, he was put on a clear liquid diet, once patient comes for anesthesia he should be on a diabetic diet (5) Paroxysmal atrial fibrillation: Plan: ? Continue Eliquis per orthopedics discretion (6) Aspiration pneumonia: Plan: Continue Unasyn and azithromycin Plan ? DVT prophylaxis addressed ? Diabetic diet later on ? Full code Documented By: Emile Reynolds DO 12/23/24 1605 Signed By: <Electronically signed by Emile Reynolds, > 12/23/24 1611 [facility] Work Phone: [phone]) 552-249203-10-2025 [place] [address] Hospitalist Progress Note Signed Patient: Delano Ren MR#: [id number] : 1940 Acct:[id number] Age/Sex: 84 / M Adm Date: 5 Loc: Room: [address] [place] [address] Type: ADM IN Attending Dr: Emile Reynolds DO Copies to: ~ Date of Service: 12/23/2024 Subjective Subjective Narrative: Seen and evaluated, he is still having some pain in the right hip. I was alerted to requiring more oxygen this morning, at baseline he is on room air when he is at home however he is on 4 to 5 L nasal cannula as of this morning. He also had a slight fever of 100.8 Tmax. I did go to the bedside, patient is actually looking quite comfortable laying in the bed, he does not appear to be in respite distress at all. His family is present at bedside. I did explain the findings of the chest x-ray consistent with right sided opacity of the entire lung field which may to be concern for aspiration ammonia, patient is awake and alert, he is not coughing he denies any coughing recently, he has not had any problems with swallowing or or have a history of aspiration. The patient's family does endorse him having sleep apnea requiring CPAP, he has beengetting IV pain medications here. I do believe that his fever and hypoxia are related to atelectasis however givenhe is here for ORIFof his right hip requiring prosthetic, will initiate antibiotics to cover for aspiration and community-acquired pneumonia. Exam Physical Exam Vital Signs: Temp Pulse Resp BP Pulse Ox O2 Del Method O2 Flow Rate 97.6 F 64 16 105/61 88 L Simple Mask 68 12/23/24 14:10 12/23/24 14:12/23/24 14:25 12/23/24 14:25 12/23/24 14:25 12/23/24 14:12/23/24 14:25 FiO2 2 12/22/24 00:00 Narrative: General: Awake alert, no acute distress HEENT: head atraumatic, normocephalic, moist mucous membranes Neck: supple no masses, no lymphadenopathy CVS: regular rate and rhythm, no murmurs or gallops Respiratory: clear to auscultation bilaterally, no wheezing or crackles, symmetric expansion GI: soft, nondistended, nontender, positive bowel sounds with no organomegaly Extremity: moves all extremities, no restrictions of movements, no calf tenderness, no edema Neuro: AOx3, CN II-VII intact. Moves all extremities in all planes of motion. Skin: dry, intact no rashes or lesions Objective Lab Results 12/22/24 05:09 12/22/24 05:09 Meds Allergies and Active Meds Allergies simvastatin Allergy (Unknown, Verified 12/19/24 08:50) Unknown Reaction Qoikkle-LXT-DxD Reductase Inhibitor (Lttsgnj-Sqx-Jih Reductase Inhibitor) Allergy (Unknown, Verified 12/19/24 08:50) Muscle Pain tramadol Allergy (Verified 12/19/24 08:50) Itching niacin ER Allergy (Uncoded 08/22/24 08:31) itching Active Meds: Active Medications Generic Name Dose Route Start Last Admin Trade Name Freq PRN Reason Stop Dose Admin Acetaminophen 650 mg 12/21/24 22:30 12/23/24 07:59 Acetaminophen 325 Mg Tablet PO 12/21/25 22:29 650 mg Q4H PRN Administration Pain Scale 1 - 5 Acetaminophen 1,000 mg 12/22/24 11:12 Acetaminophen 500 Mg Tablet PO 12/22/25 11:11 Q8H PRN Fever or Pain Albuterol 2.5 mg 12/21/24 22:30 Albuterol Neb 2.5 Mg/3 Ml Vial.Neb INHALATION 12/21/25 22:29 Q2H PRN Shortness Of Breath Allopurinol 100 mg 12/22/24 09:00 12/23/24 08:47 Allopurinol 100 Mg Tablet PO 12/22/25 08:59 Not Given DAILY REPLACED BY [facility] Amiodarone HCl 200 mg 12/22/24 09:00 12/23/24 08:47 Amiodarone 200 Mg Tablet PO 12/22/25 08:59 Not Given DAILY REPLACED BY [facility] Amlodipine Besylate 10 mg 12/22/24 09:00 12/23/24 08:48 Amlodipine 10 Mg Tablet PO 12/22/25 08:59 Not Given DAILY REPLACED BY [facility] Ascorbic Acid 500 mg 12/23/24 09:00 12/23/24 08:48 Ascorbic Acid 500 Mg Tablet PO 12/23/25 08:59 Not Given DAILY REPLACED BY [facility] Calcium Carbonate 1 tab 12/22/24 12:00 12/23/24 12:33 Calcium Carbonate/Vitamin D3 500 Mg/200 Unit Tablet PO 12/22/25 11:59 Not Given TID.WITH.MEALS REPLACED BY [facility] Diphenhydramine HCl 25 mg 12/23/24 13:13 Diphenhydramine 25 Mg Capsule PO 12/23/25 13:12 Q6H PRN Itching Docusate Sodium 200 mg 12/21/24 22:30 Docusate 100 Mg Capsule PO 12/21/25 22:29 BID PRN Constipation Docusate Sodium 100 mg 12/23/24 21:00 Docusate 100 Mg Capsule PO 12/23/25 20:59 BID FERN Fluticasone/Umeclidinium/Vilanterol 1 puff 12/23/24 09:00 12/23/24 08:59 Fluticas/Umeclidin/Vilanter 200-62.5-25 Mcg 28 Puff Inhaler *Nf* INHALATION 12/23/25 08:59 1 puff DAILY REPLACED BY [facility] Administration Hydralazine HCl 10 mg 12/21/24 22:30 Hydralazine 20 Mg/Ml Vial IV-PUSH 12/21/25 22:29 Q4H PRN if SBP > 185 Hydralazine HCl 100 mg 12/22/24 09:00 12/23/24 08:48 Hydralazine 50 Mg Tablet PO 12/22/25 08:59 Not Given TID FERN Hydromorphone HCl 0.25 mg 12/21/24 22:30 12/22/24 09:42 Hydromorphone 1 Mg/Ml Syringe IV-PUSH 0.25 mg Q4H PRN Administration pain Hydromorphone HCl 0.5 mg 12/22/24 11:12 12/23/24 08:45 Hydromorphone 0.5 Mg/0.5 Ml Syringe IV-PUSH 0.5 mg Q2H PRN Administration Pain Scale 1 - 3 Hydromorphone HCl 1 mg 12/22/24 11:12 Hydromorphone 1 Mg/Ml Syringe IV-PUSH Q2H PRN Pain Scale 4 - 6 Lactated Ringer's 1,000 mls @ 75 mls/hr 12/23/24 00:00 12/22/24 23:39 Lactated Ringers IV 12/23/25 00:00 75 mls/hr .[id number] FERN Administration Sodium Chloride 1,000 mls @ 70 mls/hr 12/23/24 00:05 12/23/24 01:07 0.9% Sodium Chloride 1,000 Ml IV 12/23/25 00:04 Not Given .[id number] FERN Lactated Ringer's 1,000 mls @ 20 mls/hr 12/23/24 08:00 12/23/24 13:35 Lactated Ringers IV 12/24/24 07:59 20 mls/hr .Q24H ONE Infusion Ampicillin Sodium/Sulbactam Sodium 1.5 gm in 100 mls @ 200 mls/hr 12/23/24 11:30 12/23/24 12:14 Unasyn IV 200 mls/hr Q12H FERN Administration Azithromycin 500 mg in 250 mls @ 250 mls/hr 12/23/24 15:30 Zithromax IV Q24H FERN Isosorbide Dinitrate 10 mg 12/22/24 09:00 12/23/24 08:48 Isosorbide Dinitrate 10 Mg Tablet PO 12/22/25 08:59 Not Given TID FERN Lidocaine HCl 0.1 ml 12/23/24 08:00 Lidocaine 1% 50 Ml Vial INTRADERMA PREOP PRN Venipuncture x 1 Dose Magnesium Hydroxide 30 ml 12/22/24 11:12 Magnesium Hydroxide Susp 30 Ml Udc PO 12/22/25 11:11 DAILY PRN Constipation Metoprolol Succinate 100 mg 12/22/24 09:00 12/23/24 08:26 Metoprolol Succinate 100 Mg Tab.Er.24h PO 12/22/25 08:59 100 mg DAILY FERN Administration Multivitamins 1 tab 12/23/24 09:00 12/23/24 08:48 Multivitamin 1 Tab Tablet PO 12/23/25 08:59 Not Given DAILY FERN Ondansetron HCl 4 mg 12/22/24 11:12 12/23/24 08:58 Ondansetron 4 Mg/2 Ml Vial IV-PUSH 12/22/25 11:11 4 mg Q6H PRN Administration Nausea And Vomiting Oxycodone HCl 5 mg 12/22/24 11:12 Oxycodone Ir 5 Mg Tablet PO Q4HR PRN Pain Scale 1 - 5 Oxycodone HCl 10 mg 12/22/24 11:12 Oxycodone Ir 5 Mg Tablet PO Q4HR PRN Pain Scale 6 - 10 Polyethylene Glycol 17 gm 12/22/24 09:00 12/23/24 08:48 Polyethylene Glycol 3350 17 Gm Powd.Pack PO 12/22/25 08:59 Not Given DAILY FERN Sennosides 17.2 mg 12/22/24 09:00 12/23/24 08:48 Sennosides 8.6 Mg Tablet PO 12/22/25 08:59 Not Given BID FERN Sodium Chloride 0 ml 12/22/24 11:12 Sodium Chloride 0.9 % 10 Ml Syringe IV-PUSH 12/22/25 11:11 PRN PRN Flush A&P - Hospitalist Assessment/Plan (1) Femoral neck fracture: Plan: ? Status post HERRERA on right hip on December 23, 2024 ? Orthopedic surgery to manage ? Pain control as ordered ? Ideally, hold off on morphine if able to given he is having pain with atelectasis (2) Mucopurulent chronic bronchitis: Plan: He has dizziness history, I do wonder if this is playing a role in his current episodes of hypoxia though his lungs are clear to auscultation (3) Stage 4 chronic kidney disease: Plan: Kidney function is stable (4) Type 2 diabetes mellitus with hyperglycemia: Plan: ? After surgery, he was put on a clear liquid diet, once patient comes for anesthesia he should be on a diabetic diet (5) Paroxysmal atrial fibrillation: Plan: ? Continue Eliquis per orthopedics discretion (6) Aspiration pneumonia: Plan: Continue Unasyn and azithromycin Plan ? DVT prophylaxis addressed ? Diabetic diet later on ? Full code Documented By: Emile Reynolds, DO 12/23/24 1609 Signed By: 12/23/24 1615 [facility]03-10-2025 Reason for visit Narrative* Rehabilitation - Outpatient (Routine) - Authorized Specialty Diagnoses / Procedures Referred By Contac t Referred To Contact Physical Therapy Diagnoses Right Hip Arthroplasty / Bone graft proximal femur, dos 12/23/24 / Left trochanteric Bursitis Procedures [place] PHYSICAL THERAPY EVALUATION LOW COMPLEX 20 MINS [place] OFFICE/OUTPATIENT NEW HIGH MDM 60 MINUTES Walker Soria MD [address] [place] [address] Phone: tel: fax: Kenny Aldana, PT [address] [facility] [address] [place] [address] Phone: tel: fax: Referral ID Status Reason Start Date Expiration Date V isits Requested Visits Authorized [id number] Authorized 03/19/2025 09/15/2025 20 20 [id number] Reason for visit Narrative* Rehabilitation - Outpatient (Routine) - Authorized Specialty Diagnoses / Procedures Referred By Contac t Referred To Contact Physical Therapy Diagnoses Right Hip Arthroplasty / Bone graft proximal femur, dos 12/23/24 / Left trochanteric Bursitis Procedures [place] PHYSICAL THERAPY EVALUATION LOW COMPLEX 20 MINS [place] OFFICE/OUTPATIENT NEW HIGH MDM 60 MINUTES Walker Soria MD [address] [place] [address] Phone: tel: fax: Kenny Aldana, PT [address] [address] Phone: tel: fax: Referral ID Status Reason Start Date Expiration Date V isits Requested Visits Authorized [id number] Authorized 03/19/2025 10/15/2025 20 30 [id number] Reason for visit Narrative* Rehabilitation - Outpatient (Routine) - Authorized Specialty Diagnoses / Procedures Referred By Contac t Referred To Contact Physical Therapy Diagnoses Right Hip Arthroplasty / Bone graft proximal femur, dos 12/23/24 / Left trochanteric Bursitis Procedures [place] PHYSICAL THERAPY EVALUATION LOW COMPLEX 20 MINS [place] OFFICE/OUTPATIENT NEW HIGH MDM 60 MINUTES Walker Soria MD [address] [place] [address] Phone: tel: fax: Kenny Aldana, PT [address] [place] [address] Phone: tel: fax: Referral ID Status Reason Start Date Expiration Date V isits Requested Visits Authorized [id number] Authorized 03/19/2025 10/15/2025 20 35 [id number] History and physical note Author Sudha Sood [facility] Note Date/Time December 23, 2024 7:4 7am [facility] [address] [place] [id number] Hospitalist H&P Signed Patient: Delano Ren MR#: [id number] : 1940 Acct:[id number] Age/Sex: 84 / M Adm Date: 5 Loc: Room: [address] [place] [address] Type: ADM IN Attending Dr: Jaye Jorgensen MD Copies to: DO Jaye Lauren MD Ruta Semaskiene, MD~ HPI DATE OF EXAMINATION: 12/22/24 HISTORY OF PRESENT ILLNESS: 84 years old male presented with mechanical fall. He denies any prodromal symptoms, no chest pain, shortness of breath, palpitations dizziness. He deniesany loss of consciousness. He denies any headache any neck pain. He does have underlying nonischemic cardiomyopathy with ejection fraction 35% asper family, he does have ICD/defibrillator but no shock, couple months ago he did have electrical cardioversion from atrial fibrillation. He does take Eliquis therapy. He does have underlying chronic kidney disease with baseline creatinine 2.7 and following with pharmaceutical operator. 10 systems are reviewed and are negative apart as mentioned H&P General -patient is awake alert oriented ?3, does not appear to be in distress HEENT -normal oropharyngeal mucosa without any ulcers or exudates Cardiovascular -S1 plus S2, with regular rate, without any murmurs, gallops, rubs Pulmonary -clear to auscultation bilaterally Gastrointestinal -abdomen is soft, nondistended, nontender, bowel sounds positive, no rigidity, no rebound Musculoskeletal -no joint swelling Neurological -no focal Skin -no significant ulcers, no rash noted Extremities - no edema in bilateral lower extremities noted Psychiatry - appropriate affect Laboratory work up, imaging studies reviewed EKG personally reviewed by me Previous records in the computer system reviewed [facility] Medical History Screening PSA (prostate specific antigen) PSA: 0.91 - 07/2024 Chronic bronchitis, simple Chronic HFrEF (heart failure with reduced ejection fraction) Echo: LVEF 25%, RV reduced function, RVSP 61, SANJAY, mod MR - 02/2023 Type 2 diabetes mellitus with hyperglycemia Thyrotoxicosis Stage 4 chronic kidney disease Pulmonary hypertension Psoas abscess Primary hypertension Paroxysmal atrial fibrillation Ablation - 10/2019 Cardioversion - 10/2024 Obstructive sleep apnea Nonischemic dilated cardiomyopathy LHC: nonobstructive coronary disease - 2016 s/p ICD - 10/2019, BiV ICD - 05/2023 Lumbar spondylosis 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 Hypokalemia Hyperuricemia Hypertensive chronic kidney disease with stage 1 through stage 4 chronic kidney disease, or unspecified chronic kidney disease Hyperlipidemia type II Complete heart block Chronic venous insufficiency Hyperthyroidism Hyperlipidemia Chicken pox Arthritis Anemia Wears hearing aid in left ear Colon cancer Hemicolectomy 08/2021, Surveillance colonoscopy 07/2022 (repeat 2 years) Hypercholesteremia Coronary artery disease A-fib hx ablation Surgical History Hx of tonsillectomy Biventricular ICD (implantable cardioverter-defibrillator) in place (~05/2023) Hx of cardiac catheterization (~2015) H/O cardiac radiofrequency ablation H/O right hemicolectomy (~08/2021) H/O colonoscopy (~08/2024) 07/2022, 08/2024 w/ plan to repeat 2 years History of right heart catheterization (RHC) History of left knee replacement Pacemaker Family History Father CHF (congestive heart failure) Heart disease Mother Diabetes mellitus, type 2 Heart disease Brother Cancer Son Blackfan Glo anemia Social History Smoking Status: Never smoker Tobacco Type: cigarettes Substance Use Type: None Meds Medications and Allergies Allergies simvastatin Allergy (Unknown, Verified 12/19/24 08:50) Unknown Reaction Cuuqeet-BIQ-QnD Reductase Inhibitor (Desvwzh-Qvz-Yvk Reductase Inhibitor) Allergy (Unknown, Verified 12/19/24 08:50) Muscle Pain tramadol Allergy (Verified 12/19/24 08:50) Itching niacin ER Allergy (Uncoded 08/22/24 08:31) itching Home Medications hydralazine 100 mg tablet 100 mg PO TID 30 days #90 tabs 06/09/21 [Rx Confirmed 12/21/24] niacin 500 mg tablet 500 mg PO DAILY 30 days #30 tabs 06/09/21 [Rx Confirmed 12/21/24] amlodipine 10 mg tablet 10 mg PO DAILY 07/21/22 [History Confirmed 12/21/24] isosorbide dinitrate 10 mg tablet 10 mg PO TID 07/21/22 [History Confirmed 12/21/24] apixaban 2.5 mg tablet (Eliquis) 2.5 mg PO BID 03/03/23 [History Confirmed 12/21/24] blood sugar diagnostic (Contour Next Test Strips) 12/15/23 [History Confirmed 12/19/24] cholecalciferol (vitamin D3) 125 mcg (5,000 unit) tablet 5,000 unit PO DAILY 12/15/23 [History Confirmed 12/21/24] metoprolol succinate 100 mg tablet,extended release 24 hr 100 mg PO DAILY 12/15/23 [History Confirmed 12/21/24] furosemide 80 mg tablet 80 mg PO DAILY 30 days #30 tabs 12/18/23 [Rx Confirmed 12/21/24] fluticasone fur. 200 mcg-umeclid 62.5 mcg-vilant 25 mcg inhalat.powder (Trelegy Ellipta) 1 inh inhalation DAILY 90 days #90 ea 02/15/24 [Rx Confirmed 12/21/24] ezetimibe 10 mg tablet 10 mg PO DAILY 03/01/24 [History Confirmed 12/21/24] allopurinol 100 mg tablet 100 mg PO DAILY 90 days #90 tabs 06/05/24 [Rx Confirmed 12/21/24] acetaminophen 500 mg tablet (Acetaminophen Extra Strength) 1,000 mg PO DIRECTED PRN pain 08/12/24 [History Confirmed 12/21/24] losartan 25 mg tablet 25 mg PO DAILY 08/12/24 [History Confirmed 12/21/24] potassium chloride 10 mEq tablet,extended release(part/cryst) See Rx Instructions .Route .COMPLEX #90 tabs 10/15/24 [Rx Confirmed 12/21/24] amiodarone 200 mg tablet 200 mg PO DAILY 11/08/24 [History Confirmed 12/21/24] Exam Physical Exam Vital Signs: Temp Pulse Resp BP Pulse Ox O2 Del Method O2 Flow Rate 36.7 C 70 16 148/69 H 94 L Nasal Cannula 2 12/21/24 22:16 12/21/24 22:16 12/21/24 22:16 12/21/24 22:16 12/21/24 22:16 12/21/24 22:16 12/21/24 22:16 Assessment & Plan Assessment/Plan (1) Femoral neck fracture: Plan 1. Status post mechanical fall complicated by hip fracture, Ortho consulted For now pain management He took Eliquis earlier this morning, I will hold 2. Nonischemic cardiomyopathy/chronic systolic congestive heart failure with ejection fraction 35%, with ICD/pacemaker Seems to be compensated Patient denies any symptoms any shocks 3. Chronic kidney disease stage III/IV, baseline creatinine 2.7, Creatinine slightly worse, will start IV fluids, recheck in a.m. 4. DVT prophylaxis SCDs for now IP vs OBS Justification Based on differential dx, clinical care plan, and risk of adverse events, if untreated, in my clinical judgement this patient requires an acute care setting as: INPATIENT because of an expectation of an over 2 midnight stay. Estimated length of stay (# of days): 3 Documented By: Sudha Sood MD 12/21/24 [id number] Signed By: <Electronically signed by Sudha Sood MD> 12/23/24 7232 [facility] Work Phone: [phone]) 444-355403-10-2025 History and physical [place] [id number] Hospitalist H&P Signed Patient: Delano Ren MR#: [id number] : 1940 Acct:[id number] Age/Sex: 84 / M Adm Date: 5 Loc: 4N Room: [address] [place] [address] Type: ADM IN Attending Dr: Jaye Jorgensen MD Copies to: DO Jaye Lauren MD Ruta Semaskiene, MD~ HPI DATE OF EXAMINATION: 12/22/24 HISTORY OF PRESENT ILLNESS: 84 years old male presented with mechanical fall. He denies any prodromal symptoms, no chest pain, shortness of breath, palpitations dizziness. He deniesany loss of consciousness. He denies any headache any neck pain. He does have underlying nonischemic cardiomyopathy with ejection fraction 35% asper family, he doeshave ICD/defibrillator but no shock, couple months ago he did have electrical cardioversion from atrial fibrillation. He does take Eliquis therapy. He does have underlying chronic kidney disease withbaseline creatinine 2.7 and following with pharmaceutical operator. 10 systems are reviewed and are negative apart as mentioned H&P General -patient is awake alert oriented ?3, does not appear to be in distress HEENT -normal oropharyngeal mucosa without any ulcers or exudates Cardiovascular -S1 plus S2, with regular rate, without any murmurs, gallops, rubs Pulmonary -clear to auscultation bilaterally Gastrointestinal -abdomen is soft, nondistended, nontender, bowel sounds positive, no rigidity, no rebound Musculoskeletal -no joint swelling Neurological -no focal Skin -no significant ulcers, no rash noted Extremities - no edema in bilateral lower extremities noted Psychiatry - appropriate affect Laboratory work up, imaging studies reviewed EKG personally reviewed by me Previous records in the computer system reviewed [facility] Medical History Screening PSA (prostate specific antigen) PSA: 0.91 - 07/2024 Chronic bronchitis, simple Chronic HFrEF (heart failure with reduced ejection fraction) Echo: LVEF 25%, RV reduced function, RVSP 61, SANJAY, mod MR - 02/2023 Type 2 diabetes mellitus with hyperglycemia Thyrotoxicosis Stage 4 chronic kidney disease Pulmonary hypertension Psoas abscess Primary hypertension Paroxysmal atrial fibrillation Ablation - 10/2019 Cardioversion - 10/2024 Obstructive sleep apnea Nonischemic dilated cardiomyopathy LHC: nonobstructive coronary disease - 2016 s/p ICD - 10/2019, BiV ICD - 05/2023 Lumbar spondylosis 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 Hypokalemia Hyperuricemia Hypertensive chronic kidney disease with stage 1 through stage 4 chronic kidney disease, or unspecified chronic kidney disease Hyperlipidemia type II Complete heart block Chronic venous insufficiency Hyperthyroidism Hyperlipidemia Chicken pox Arthritis Anemia Wears hearing aid in left ear Colon cancer Hemicolectomy 08/2021, Surveillance colonoscopy 07/2022 (repeat 2 years) Hypercholesteremia Coronary artery disease A-fib hx ablation Surgical History Hx of tonsillectomy Biventricular ICD (implantable cardioverter-defibrillator) in place (~05/2023) Hx of cardiac catheterization (~2015) H/O cardiac radiofrequency ablation H/O right hemicolectomy (~08/2021) H/O colonoscopy (~08/2024) 07/2022, 08/2024 w/ plan to repeat 2 years History of right heart catheterization (RHC) History of left knee replacement Pacemaker Family History Father CHF (congestive heart failure) Heart disease Mother Diabetes mellitus, type 2 Heart disease Brother Cancer Son Blackfan Glo anemia Social History Smoking Status: Never smoker Tobacco Type: cigarettes Substance Use Type: None Meds Medications and Allergies Allergies simvastatin Allergy (Unknown, Verified 12/19/24 08:50) Unknown Reaction Iguzeul-DFL-BzV Reductase Inhibitor (Dwjsvfm-Dsu-Hee Reductase Inhibitor) Allergy (Unknown, Verified 12/19/24 08:50) Muscle Pain tramadol Allergy (Verified 12/19/24 08:50) Itching niacin ER Allergy (Uncoded 08/22/24 08:31) itching Home Medications hydralazine 100 mg tablet 100 mg PO TID 30 days #90 tabs 06/09/21 [Rx Confirmed 12/21/24] niacin 500 mg tablet 500 mg PO DAILY 30 days #30 tabs 06/09/21 [Rx Confirmed 12/21/24] amlodipine 10 mg tablet 10 mg PO DAILY 07/21/22 [History Confirmed 12/21/24] isosorbide dinitrate 10 mg tablet 10 mg PO TID 07/21/22 [History Confirmed 12/21/24] apixaban 2.5 mg tablet (Eliquis) 2.5 mg PO BID 03/03/23 [History Confirmed 12/21/24] blood sugar diagnostic (Contour Next Test Strips) 12/15/23 [History Confirmed 12/19/24] cholecalciferol (vitamin D3) 125 mcg (5,000 unit) tablet 5,000 unit PO DAILY 12/15/23 [History Confirmed 12/21/24] metoprolol succinate 100 mg tablet,extended release 24 hr 100 mg PO DAILY 12/15/23 [History Confirmed 12/21/24] furosemide 80 mg tablet 80 mg PO DAILY 30 days #30 tabs 12/18/23 [Rx Confirmed 12/21/24] fluticasone fur. 200 mcg-umeclid 62.5 mcg-vilant 25 mcg inhalat.powder (Trelegy Ellipta) 1 inh inhalation DAILY 90 days #90 ea 02/15/24 [Rx Confirmed 12/21/24] ezetimibe 10 mg tablet 10 mg PO DAILY 03/01/24 [History Confirmed 12/21/24] allopurinol 100 mg tablet 100 mg PO DAILY 90 days #90 tabs 06/05/24 [Rx Confirmed 12/21/24] acetaminophen 500 mg tablet (Acetaminophen Extra Strength) 1,000 mg PO DIRECTED PRN pain 08/12/24 [History Confirmed 12/21/24] losartan 25 mg tablet 25 mg PO DAILY 08/12/24 [History Confirmed 12/21/24] potassium chloride 10 mEq tablet,extended release(part/cryst) See Rx Instructions .Route .COMPLEX #90 tabs 10/15/24 [Rx Confirmed 12/21/24] amiodarone 200 mg tablet 200 mg PO DAILY 11/08/24 [History Confirmed 12/21/24] Exam Physical Exam Vital Signs: Temp Pulse Resp BP Pulse Ox O2 Del Method O2 Flow Rate 36.7 C 70 16 148/69 H 94 L Nasal Cannula 2 12/21/24 22:16 12/21/24 22:16 12/21/24 22:16 12/21/24 22:16 12/21/24 22:16 12/21/24 22:16 12/21/24 22:16 Assessment & Plan Assessment/Plan (1) Femoral neck fracture: Plan 1. Status post mechanical fall complicated by hip fracture, Ortho consulted For now pain management He took Eliquis earlier this morning, I will hold 2. Nonischemic cardiomyopathy/chronic systolic congestive heart failure with ejection fraction 35%,with ICD/pacemaker Seems to be compensated Patient denies any symptoms any shocks 3. Chronic kidney disease stage III/IV, baseline creatinine 2.7, Creatinine slightly worse, will start IV fluids, recheck in a.m. 4. DVT prophylaxis SCDs for now IP vs OBS Justification Based on differential dx, clinical care plan, and risk of adverse events, if untreated, in my clinical judgement this patient requires an acute care setting as: INPATIENT because of an expectation ofan over 2 midnight stay. Estimated length of stay (# of days): 3 Documented By: Sudha Sood MD 12/21/249 Signed By: 12/23/24 0747 [facility]03-09-2025 Progress note Author Jaye Jorgensen [facility] Note Date/Time December 22, 2024 8:21 pm [facility] [address] [place] [address] Hospitalist Progress Note Signed Patient: Delano Ren MR#: [id number] : 1940 Acct:[id number] Age/Sex: 84 / M Adm Date: 5 Loc: Room: [address] [place] [address] Type: ADM IN Attending Dr: Jaye Jorgensen MD Copies to: ~ Date of Service: 12/22/2024 Subjective Subjective Narrative: still in pain in his right leg no chest pain or SOB Exam Physical Exam Vital Signs: Temp Pulse Resp BP Pulse Ox O2 Del Method O2 Flow Rate 37.2 C 72 18 142/55 H 91 L Nasal Cannula 2 12/22/24 16:00 12/22/24 16:12 12/22/24 16:12 12/22/24 16:00 12/22/24 16:00 12/22/24 16:13 12/22/24 16:13 FiO2 2 12/22/24 00:00 Narrative: GEN: NAD, Cooperative LUNGS: CTA. normal respiratory effort CV: nl S1 S2; ABD: Soft, ND, NT, + BS EXT: No peripheral edema, No calf muscle tenderness NEURO: limited exam in the right leg ? FND. PSYCH: nl affect Objective Lab Results 12/22/24 05:09 12/22/24 05:09 Meds Allergies and Active Meds Allergies simvastatin Allergy (Unknown, Verified 12/19/24 08:50) Unknown Reaction Fsjvcqn-PQN-UtO Reductase Inhibitor (Vvjlvln-Zoj-Nta Reductase Inhibitor) Allergy (Unknown, Verified 12/19/24 08:50) Muscle Pain tramadol Allergy (Verified 12/19/24 08:50) Itching niacin ER Allergy (Uncoded 08/22/24 08:31) itching Active Meds: Active Medications Generic Name Dose Route Start Last Admin Trade Name Freq PRN Reason Stop Dose Admin Acetaminophen 650 mg 12/21/24 22:30 Acetaminophen 325 Mg Tablet PO 12/21/25 22:29 Q4H PRN Pain Scale 1 - 5 Acetaminophen 1,000 mg 12/22/24 11:12 Acetaminophen 500 Mg Tablet PO 12/22/25 11:11 Q8H PRN Fever or Pain Albuterol 2.5 mg 12/21/24 22:30 Albuterol Neb 2.5 Mg/3 Ml Vial.Neb INHALATION 12/21/25 22:29 Q2H PRN Shortness Of Breath Albuterol/Ipratropium 3 ml 12/22/24 08:00 12/22/24 16:15 Ipratropium/Albuterol 0.5-3 Mg 3 Ml Ampul.Neb INHALATION 12/22/25 07:59 3 ml QID.RESP FERN Administration Allopurinol 100 mg 12/22/24 09:00 12/22/24 13:42 Allopurinol 100 Mg Tablet PO 12/22/25 08:59 100 mg DAILY FERN Administration Amiodarone HCl 200 mg 12/22/24 09:00 12/22/24 13:23 Amiodarone 200 Mg Tablet PO 12/22/25 08:59 200 mg DAILY FERN Administration Amlodipine Besylate 10 mg 12/22/24 09:00 12/22/24 13:22 Amlodipine 10 Mg Tablet PO 12/22/25 08:59 10 mg DAILY FERN Administration Ascorbic Acid 500 mg 12/23/24 09:00 Ascorbic Acid 500 Mg Tablet PO 12/23/25 08:59 DAILY FERN Budesonide/Formoterol Fumarate 2 puff 12/22/24 09:00 12/22/24 08:55 Budesonide/Formoterol 160-4.5 Mcg 60 Puff/6 Gm Hfa.Aer.Ad INHALATION 03/09/26 08:59 2 puff BID FERN Administration Calcium Carbonate 1 tab 12/22/24 12:00 12/22/24 13:22 Calcium Carbonate/Vitamin D3 500 Mg/200 Unit Tablet PO 12/22/25 11:59 1 tab TID.WITH.MEALS FERN Administration Cefazolin Sodium 2 gm 12/23/24 12:00 Cefazolin 2 Gm/11 Ml Syringe IV-PUSH 12/23/24 12:01 PREOP ONE Docusate Sodium 200 mg 12/21/24 22:30 Docusate 100 Mg Capsule PO 12/21/25 22:29 BID PRN Constipation Hydralazine HCl 10 mg 12/21/24 22:30 Hydralazine 20 Mg/Ml Vial IV-PUSH 12/21/25 22:29 Q4H PRN if SBP > 185 Hydralazine HCl 100 mg 12/22/24 09:00 12/22/24 13:22 Hydralazine 50 Mg Tablet PO 12/22/25 08:59 100 mg TID FERN Administration Hydromorphone HCl 0.25 mg 12/21/24 22:30 12/22/24 09:42 Hydromorphone 1 Mg/Ml Syringe IV-PUSH 0.25 mg Q4H PRN Administration pain Hydromorphone HCl 0.5 mg 12/22/24 11:12 12/22/24 13:22 Hydromorphone 0.5 Mg/0.5 Ml Syringe IV-PUSH 0.5 mg Q2H PRN Administration Pain Scale 1 - 3 Hydromorphone HCl 1 mg 12/22/24 11:12 Hydromorphone 1 Mg/Ml Syringe IV-PUSH Q2H PRN Pain Scale 4 - 6 Lactated Ringer's 1,000 mls @ 75 mls/hr 12/23/24 00:00 Lactated Ringers IV 12/23/25 00:00 .[id number] REPLACED BY [facility] Isosorbide Dinitrate 10 mg 12/22/24 09:00 12/22/24 13:22 Isosorbide Dinitrate 10 Mg Tablet PO 12/22/25 08:59 10 mg TID FERN Administration Magnesium Hydroxide 30 ml 12/22/24 11:12 Magnesium Hydroxide Susp 30 Ml Udc PO 12/22/25 11:11 DAILY PRN Constipation Metoprolol Succinate 100 mg 12/22/24 09:00 12/22/24 10:49 Metoprolol Succinate 100 Mg Tab.Er.24h PO 12/22/25 08:59 100 mg DAILY FERN Administration Multivitamins 1 tab 12/23/24 09:00 Multivitamin 1 Tab Tablet PO 12/23/25 08:59 DAILY FERN Ondansetron HCl 4 mg 12/22/24 11:12 Ondansetron 4 Mg/2 Ml Vial IV-PUSH 12/22/25 11:11 Q6H PRN Nausea And Vomiting Oxycodone HCl 5 mg 12/22/24 11:12 Oxycodone Ir 5 Mg Tablet PO Q4HR PRN Pain Scale 1 - 5 Oxycodone HCl 10 mg 12/22/24 11:12 Oxycodone Ir 5 Mg Tablet PO Q4HR PRN Pain Scale 6 - 10 Polyethylene Glycol 17 gm 12/22/24 09:00 12/22/24 13:43 Polyethylene Glycol 3350 17 Gm Powd.Pack PO 12/22/25 08:59 17 gm DAILY FERN Administration Sennosides 17.2 mg 12/22/24 09:00 12/22/24 10:50 Sennosides 8.6 Mg Tablet PO 12/22/25 08:59 Not Given BID FERN Sodium Chloride 0 ml 12/22/24 11:12 Sodium Chloride 0.9 % 10 Ml Syringe IV-PUSH 12/22/25 11:11 PRN PRN Flush A&P - Hospitalist Assessment/Plan (1) Femoral neck fracture: Plan 84M PAF, NICM, ICD, HTN, DM ,CKD, HFrEF presented with mechanical fall to [facility] and transferred for right femoral neck fracture Right hip fracture Pain control Orthopedic was consulted, recommendation appreciated. For possible surgical treatment 12/23 NIC Cardiology was consulted, recommendation appreciated. CKD Cr at baseline Documented By: Jaye Jorgensen MD 12/22/241658 Signed By: <Electronically signed by Jaye Jorgensen MD> 12/22/242020 [facility] Work Phone: 1(721) 842-198603-09-2025 [place] [id number] Hospital[place] Progress Note Signed Patient: Delano Ren MR#: [id number] : 1940 Acct:[id number] Age/Sex: 84 / M Adm Date: 5 Loc: 4N Room: 4P4306-5 Type: ADM IN Attending Dr: Jaye Jorgensen MD Copies to: ~ Date of Service: 12/22/2024 Subjective Subjective Narrative: still in pain in his right leg no chest pain or SOB Exam Physical Exam Vital Signs: Temp Pulse Resp BP Pulse Ox O2 Del Method O2 Flow Rate 37.2 C 72 18 142/55 H 91 L Nasal Cannula 2 12/22/24 16:00 12/22/24 16:12 12/22/24 16:12 12/22/24 16:00 12/22/24 16:00 12/22/24 16:13 12/22/24 16:13 FiO2 2 12/22/24 00:00 Narrative: GEN: NAD, Cooperative LUNGS: CTA. normal respiratory effort CV: nl S1 S2; ABD: Soft, ND, NT, + BS EXT: No peripheral edema, No calf muscle tenderness NEURO: limited exam in the right leg ? FND. PSYCH: nl affect Objective Lab Results 12/22/24 05:09 12/22/24 05:09 Meds Allergies and Active Meds Allergies simvastatin Allergy (Unknown, Verified 12/19/24 08:50) Unknown Reaction Rjrdipk-HNZ-IoV Reductase Inhibitor (Lyenybs-Kwf-Pay Reductase Inhibitor) Allergy (Unknown, Verified 12/19/24 08:50) Muscle Pain tramadol Allergy (Verified 12/19/24 08:50) Itching niacin ER Allergy (Uncoded 08/22/24 08:31) itching Active Meds: Active Medications Generic Name Dose Route Start Last Admin Trade Name Freq PRN Reason Stop Dose Admin Acetaminophen 650 mg 12/21/24 22:30 Acetaminophen 325 Mg Tablet PO 12/21/25 22:29 Q4H PRN Pain Scale 1 - 5 Acetaminophen 1,000 mg 12/22/24 11:12 Acetaminophen 500 Mg Tablet PO 12/22/25 11:11 Q8H PRN Fever or Pain Albuterol 2.5 mg 12/21/24 22:30 Albuterol Neb 2.5 Mg/3 Ml Vial.Neb INHALATION 12/21/25 22:29 Q2H PRN Shortness Of Breath Albuterol/Ipratropium 3 ml 12/22/24 08:00 12/22/24 16:15 Ipratropium/Albuterol 0.5-3 Mg 3 Ml Ampul.Neb INHALATION 12/22/25 07:59 3 ml QID.RESP FERN Administration Allopurinol 100 mg 12/22/24 09:00 12/22/24 13:42 Allopurinol 100 Mg Tablet PO 12/22/25 08:59 100 mg DAILY FERN Administration Amiodarone HCl 200 mg 12/22/24 09:00 12/22/24 13:23 Amiodarone 200 Mg Tablet PO 12/22/25 08:59 200 mg DAILY FERN Administration Amlodipine Besylate 10 mg 12/22/24 09:00 12/22/24 13:22 Amlodipine 10 Mg Tablet PO 12/22/25 08:59 10 mg DAILY FERN Administration Ascorbic Acid 500 mg 12/23/24 09:00 Ascorbic Acid 500 Mg Tablet PO 12/23/25 08:59 DAILY FERN Budesonide/Formoterol Fumarate 2 puff 12/22/24 09:00 12/22/24 08:55 Budesonide/Formoterol 160-4.5 Mcg 60 Puff/6 Gm Hfa.Aer.Ad INHALATION 12/22/25 08:59 2 puff BID FERN Administration Calcium Carbonate 1 tab 12/22/24 12:00 12/22/24 13:22 Calcium Carbonate/Vitamin D3 500 Mg/200 Unit Tablet PO 12/22/25 11:59 1 tab TID.WITH.MEALS FERN Administration Cefazolin Sodium 2 gm 12/23/24 12:00 Cefazolin 2 Gm/11 Ml Syringe IV-PUSH 12/23/24 12:01 PREOP ONE Docusate Sodium 200 mg 12/21/24 22:30 Docusate 100 Mg Capsule PO 12/21/25 22:29 BID PRN Constipation Hydralazine HCl 10 mg 12/21/24 22:30 Hydralazine 20 Mg/Ml Vial IV-PUSH 12/21/25 22:29 Q4H PRN if SBP > 185 Hydralazine HCl 100 mg 12/22/24 09:00 12/22/24 13:22 Hydralazine 50 Mg Tablet PO 12/22/25 08:59 100 mg TID FERN Administration Hydromorphone HCl 0.25 mg 12/21/24 22:30 12/22/24 09:42 Hydromorphone 1 Mg/Ml Syringe IV-PUSH 0.25 mg Q4H PRN Administration pain Hydromorphone HCl 0.5 mg 12/22/24 11:12 12/22/24 13:22 Hydromorphone 0.5 Mg/0.5 Ml Syringe IV-PUSH 0.5 mg Q2H PRN Administration Pain Scale 1 - 3 Hydromorphone HCl 1 mg 12/22/24 11:12 Hydromorphone 1 Mg/Ml Syringe IV-PUSH Q2H PRN Pain Scale 4 - 6 Lactated Ringer's 1,000 mls @ 75 mls/hr 12/23/24 00:00 Lactated Ringers IV 12/23/25 00:00 .[id number] FERN Isosorbide Dinitrate 10 mg 12/22/24 09:00 12/22/24 13:22 Isosorbide Dinitrate 10 Mg Tablet PO 12/22/25 08:59 10 mg TID FERN Administration Magnesium Hydroxide 30 ml 12/22/24 11:12 Magnesium Hydroxide Susp 30 Ml Udc PO 12/22/25 11:11 DAILY PRN Constipation Metoprolol Succinate 100 mg 12/22/24 09:00 12/22/24 10:49 Metoprolol Succinate 100 Mg Tab.Er.24h PO 12/22/25 08:59 100 mg DAILY FERN Administration Multivitamins 1 tab 12/23/24 09:00 Multivitamin 1 Tab Tablet PO 12/23/25 08:59 DAILY FERN Ondansetron HCl 4 mg 12/22/24 11:12 Ondansetron 4 Mg/2 Ml Vial IV-PUSH 12/22/25 11:11 Q6H PRN Nausea And Vomiting Oxycodone HCl 5 mg 12/22/24 11:12 Oxycodone Ir 5 Mg Tablet PO Q4HR PRN Pain Scale 1 - 5 Oxycodone HCl 10 mg 12/22/24 11:12 Oxycodone Ir 5 Mg Tablet PO Q4HR PRN Pain Scale 6 - 10 Polyethylene Glycol 17 gm 12/22/24 09:00 12/22/24 13:43 Polyethylene Glycol 3350 17 Gm Powd.Pack PO 12/22/25 08:59 17 gm DAILY FERN Administration Sennosides 17.2 mg 12/22/24 09:00 12/22/24 10:50 Sennosides 8.6 Mg Tablet PO 12/22/25 08:59 Not Given BID FERN Sodium Chloride 0 ml 12/22/24 11:12 Sodium Chloride 0.9 % 10 Ml Syringe IV-PUSH 12/22/25 11:11 PRN PRN Flush A&P - Hospitalist Assessment/Plan (1) Femoral neck fracture: Plan 84M PAF, NICM, ICD, HTN, DM ,CKD, HFrEF presented with mechanical fall to [facility] and transferred for right femoral neck fracture Right hip fracture Pain control Orthopedic was consulted, recommendation appreciated. For possible surgical treatment 12/23 NICM Cardiology was consulted, recommendation appreciated. CKD Cr at baseline Documented By: Jaye Jorgensen MD 12/22/24 1659 Signed By: 12/22/242020 [facility]03-09-2025 Consult note Author Krysten Bowers [facility] Note Date/Time December 22, 2024 3:47 pm [facility] [address] [place] [address] Cardiology Consult Note Signed Patient: Delano Ren MR#: [id number] : 1940 Acct:[id number] Age/Sex: 84 / M Adm Date: 5 Loc: Room: [address] [place] [address] Type: ADM IN Attending Dr: Jaye Jorgensen MD Copies to: DO Krysten Lauren MD Marwan Wassouf, MD~ Cardiology HPI History of Present Illness Consult Date: 12/22/24 HPI: Mr. 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 Prior to the fall, he denied any chest pain, dyspnea, palpitations, lightheadedness or syncope. He follows with cardiology at [facility] and was last seen in October when he had a cardioversion. He is maintained on Eliquis and amiodarone. He denies recent BLE edema, orthopnea, PND or weight gain. He is compliant on all his medications. He is able to walk up a flight of stairs without any dyspnea and perform his own ADLs without any issues. No ICD shocks reported. ECHO 09/19/2024 showed EF of 35-40% with mild LV dilatation, biatrial enlargement, RVSP of 49 mmHg. [facility] Medical History Screening PSA (prostate specific antigen) PSA: 0.91 - 07/2024 Chronic bronchitis, simple Chronic HFrEF (heart failure with reduced ejection fraction) Echo: LVEF 25%, RV reduced function, RVSP 61, SANJAY, mod MR - 02/2023 Type 2 diabetes mellitus with hyperglycemia Thyrotoxicosis Stage 4 chronic kidney disease Pulmonary hypertension Psoas abscess Primary hypertension Paroxysmal atrial fibrillation Ablation - 10/2019 Cardioversion - 10/2024 Obstructive sleep apnea Nonischemic dilated cardiomyopathy LHC: nonobstructive coronary disease - 2016 s/p ICD - 10/2019, BiV ICD - 05/2023 Lumbar spondylosis 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 Hypokalemia Hyperuricemia Hypertensive chronic kidney disease with stage 1 through stage 4 chronic kidney disease, or unspecified chronic kidney disease Hyperlipidemia type II Complete heart block Chronic venous insufficiency Hyperthyroidism Hyperlipidemia Chicken pox Arthritis Anemia Wears hearing aid in left ear Colon cancer Hemicolectomy 08/2021, Surveillance colonoscopy 07/2022 (repeat 2 years) Hypercholesteremia Coronary artery disease A-fib hx ablation Surgical History Hx of tonsillectomy Biventricular ICD (implantable cardioverter-defibrillator) in place (~05/2023) Hx of cardiac catheterization (~2015) H/O cardiac radiofrequency ablation H/O right hemicolectomy (~08/2021) H/O colonoscopy (~08/2024) 07/2022, 08/2024 w/ plan to repeat 2 years History of right heart catheterization (RHC) History of left knee replacement Pacemaker Family History Father CHF (congestive heart failure) Heart disease Mother Diabetes mellitus, type 2 Heart disease Brother Cancer Son Blackfan Glo anemia Social History Smoking Status: Never smoker Tobacco Type: cigarettes Substance Use Type: None Meds Medications and Allergies Allergies simvastatin Allergy (Unknown, Verified 12/19/24 08:50) Unknown Reaction Ckuoogc-LWO-CaC Reductase Inhibitor (Thwsukh-Vsr-Tqs Reductase Inhibitor) Allergy (Unknown, Verified 12/19/24 08:50) Muscle Pain tramadol Allergy (Verified 12/19/24 08:50) Itching niacin ER Allergy (Uncoded 08/22/24 08:31) itching Home Medications hydralazine 100 mg tablet 100 mg PO TID 30 days #90 tabs 06/09/21 [Rx Confirmed 12/21/24] niacin 500 mg tablet 500 mg PO DAILY 30 days #30 tabs 06/09/21 [Rx Confirmed 12/21/24] amlodipine 10 mg tablet 10 mg PO DAILY 07/21/22 [History Confirmed 12/21/24] isosorbide dinitrate 10 mg tablet 10 mg PO TID 07/21/22 [History Confirmed 12/21/24] apixaban 2.5 mg tablet (Eliquis) 2.5 mg PO BID 03/03/23 [History Confirmed 12/21/24] blood sugar diagnostic (Contour Next Test Strips) 12/15/23 [History Confirmed 12/19/24] cholecalciferol (vitamin D3) 125 mcg (5,000 unit) tablet 5,000 unit PO DAILY 12/15/23 [History Confirmed 12/21/24] metoprolol succinate 100 mg tablet,extended release 24 hr 100 mg PO DAILY 12/15/23 [History Confirmed 12/21/24] furosemide 80 mg tablet 80 mg PO DAILY 30 days #30 tabs 12/18/23 [Rx Confirmed 12/21/24] fluticasone fur. 200 mcg-umeclid 62.5 mcg-vilant 25 mcg inhalat.powder (Trelegy Ellipta) 1 inh inhalation DAILY 90 days #90 ea 02/15/24 [Rx Confirmed 12/21/24] ezetimibe 10 mg tablet 10 mg PO DAILY 03/01/24 [History Confirmed 12/21/24] allopurinol 100 mg tablet 100 mg PO DAILY 90 days #90 tabs 06/05/24 [Rx Confirmed 12/21/24] acetaminophen 500 mg tablet (Acetaminophen Extra Strength) 1,000 mg PO DIRECTED PRN pain 08/12/24 [History Confirmed 12/21/24] losartan 25 mg tablet 25 mg PO DAILY 10/28/24 [History Confirmed 12/21/24] potassium chloride 10 mEq tablet,extended release(part/cryst) See Rx Instructions .Route .COMPLEX #90 tabs 10/15/24 [Rx Confirmed 12/21/24] amiodarone 200 mg tablet 200 mg PO DAILY 11/08/24 [History Confirmed 12/21/24] Exam Physical Exam Vital Signs: Temp Pulse Resp BP Pulse Ox O2 Del Method O2 Flow Rate 98.5 F 70 18 156/67 H 92 L Nasal Cannula 2 12/22/24 12:00 12/22/24 13:14 12/22/24 13:14 12/22/24 12:00 12/22/24 12:00 12/22/24 12:00 12/22/24 12:00 FiO2 2 12/22/24 00:00 Narrative: GEN: AAOx3. No acute distress. Neck: No JVD. Lungs: Clear to auscultation bilaterally Heart: Regular rate and rhythm. Normal S1 and S2. No murmurs or rubs appreciated. Abdomen: Soft, nontender, nondistended, bowel sounds present. Extremities: No BLE edema. Neuro: AAOx3. No focal deficits. Results - Cardiology Labs 12/22/24 05:09 12/22/24 05:09 Lab results: CBC 12/22/24 Range/Units 05:09 RBC 3.64 L (3.90-5.60) x10E6/uL Hgb 11.7 L (13.0-17.0) g/dL Hct 34.4 L (38.8-50.0) % Plt Count 170 (150-450) x10E3/uL Neut # (Auto) 9.8 H (1.8-7.7) x10E3/uL Lymph # (Auto) 0.8 L (1.00-4.8) x10E3/uL Reagan # (Auto) 0.9 H (0.0-0.8) x10E3/uL Eos # (Auto) 0.2 (0.0-0.45) x10E3/uL Baso # (Auto) 0.1 (0.0-0.2) x10E3/uL Comprehensive Metabolic Panel 12/22/24 Range/Units 05:09 Sodium 142 (136-145) mmol/L Potassium 3.7 (3.5-5.1) mmol/L Chloride 104 (98-107) mmol/L Carbon Dioxide 30.4 (21.0-31.0) mmol/L BUN 58 H (7-25) mg/dL Creatinine 2.61 H (0.70-1.30) mg/dL Glucose 143 H (70-100) mg/dL Calcium 8.4 L (8.6-10.3) mg/dL Intake and Output 12/21/24 12/22/24 12/22/24 23:59 08:59 15:59 Intake Total 450 / 450 Output Total 1200 / 1200 Balance -750 / -750 Intake: Oral 450 / 450 Output: Urine Amount (Catheter) 1200 / 1200 Urethral (Camacho) 1200 / 1200 Other: Weight 97.6 kg 97.6 kg Date of Last Bowel Movement 12/20/24 12/20/24 Patient Weight 12/23/24 00:59 Weight 97.6 kg A&P - Cardiology (1) Femoral neck fracture: Code(s): S72.009A - Fracture of unspecified part of neck of unspecified femur, initial encounter for closed fracture (2) Chronic HFrEF (heart failure with reduced ejection fraction): Code(s): I50.22 - Chronic systolic (congestive) heart failure (3) Type 2 diabetes mellitus with hyperglycemia: Qualifiers: Diabetes mellitus middle or intermediate school principal insulin use: without middle or intermediate school principal use Qualified Code(s): E11.65 - Type 2 diabetes mellitus with hyperglycemia Code(s): E11.65 - Type 2 diabetes mellitus with hyperglycemia (4) Primary hypertension: Code(s): I10 - Essential (primary) hypertension (5) Stage 4 chronic kidney disease: Code(s): N18.4 - Chronic kidney disease, stage 4 (severe) (6) Paroxysmal atrial fibrillation: Code(s): I48.0 - Paroxysmal atrial fibrillation (7) Obstructive sleep apnea: Code(s): G47.33 - Obstructive sleep apnea (adult) (pediatric) Plan Assessment: Preop cardiac risk stratification History of atrial flutter and atrial fibrillation status post ablation and recent cardioversion Nonischemic dilated cardiomyopathy status post BiV ICD Hypertension Hyperlipidemia DM2 CKD 4 Echo 09/19/2024 showed EF of 35-40% with mild LV dilatation, biatrial enlargement, RVSP of 49 mmHg. Recommendations: - Patient has an RCRI score of 2 (10% risk of major cardiac event). He is however optimized from a cardiovascular standpoint. He is euvolemic with no angina. He achieves >4 METS without limitations. EKG shows BiV paced rhythm with no ischemia. -Patient is optimized for surgery, may proceed without further testing. -Continue current medications. -Cardiology will be available perioperatively Documented By: Krysten Bowers MD 12/22/24 1538 Signed By: <Electronically signed by Krysten Bowers MD> 12/22/24 1544 [facility] Work Phone: 1(989) 552-662903-09-2025 [place] [address] Cardiology Consult Note Signed Patient: Delano Ren MR#: [id number] : 1940 Acct:[id number] Age/Sex: 84 / M Adm Date: 5 Loc: Room: [address] [place] [address] Type: ADM IN Attending Dr: Jaye Jorgensen MD Copies to: DO Krysten Lauren MD Marwan Wassouf, MD~ Cardiology HPI History of Present Illness Consult Date: 12/22/24 HPI: Mr. Ren is a 84 year old male With past medical history significant for atrial flutter status post ablation, paroxysmal A-fib status post cardioversion in October 2024, nonischemic dilated cardiomyopathy ([facility] 2016 with nonobstructive disease), status post BiV ICD May 2023, hypertension, hyperl ipidemia, DM2, CKD stage IV who presented after sustaining a fall and was found to have a femur fracture. Prior to the fall, he denied any chest pain, dyspnea, palpitations, lightheadedness or syncope. He follows with cardiology at [facility] and was last seen in October when he had a cardioversion. He is maintained on Eliquis and amiodarone. He denies recent BLE edema, orthopnea, PND or weight gain. He is compliant on all his medications. He is able to walk up a flight of stairs without any dyspnea and perform his own ADLs without any issues. No ICD shocks reported. ECHO 09/19/2024 showed EF of 35-40% with mild LV dilatation, biatrial enlargement, RVSP of 49 mmHg. [facility] Medical History Screening PSA (prostate specific antigen) PSA: 0.91 - 07/2024 Chronic bronchitis, simple Chronic HFrEF (heart failure with reduced ejection fraction) Echo: LVEF 25%, RV reduced function, RVSP 61, SANJAY, mod MR - 02/2023 Type 2 diabetes mellitus with hyperglycemia Thyrotoxicosis Stage 4 chronic kidney disease Pulmonary hypertension Psoas abscess Primary hypertension Paroxysmal atrial fibrillation Ablation - 10/2019 Cardioversion - 10/2024 Obstructive sleep apnea Nonischemic dilated cardiomyopathy LHC: nonobstructive coronary disease - 2016 s/p ICD - 10/2019, BiV ICD - 05/2023 Lumbar spondylosis 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 Hypokalemia Hyperuricemia Hypertensive chronic kidney disease with stage 1 through stage 4 chronic kidney disease, or unspecified chronic kidney disease Hyperlipidemia type II Complete heart block Chronic venous insufficiency Hyperthyroidism Hyperlipidemia Chicken pox Arthritis Anemia Wears hearing aid in left ear Colon cancer Hemicolectomy 08/2021, Surveillance colonoscopy 07/2022 (repeat 2 years) Hypercholesteremia Coronary artery disease A-fib hx ablation Surgical History Hx of tonsillectomy Biventricular ICD (implantable cardioverter-defibrillator) in place (~05/2023) Hx of cardiac catheterization (~2015) H/O cardiac radiofrequency ablation H/O right hemicolectomy (~08/2021) H/O colonoscopy (~08/2024) 07/2022, 08/2024 w/ plan to repeat 2 years History of right heart catheterization (RHC) History of left knee replacement Pacemaker Family History Father CHF (congestive heart failure) Heart disease Mother Diabetes mellitus, type 2 Heart disease Brother Cancer Son Blackfan Glo anemia Social History Smoking Status: Never smoker Tobacco Type: cigarettes Substance Use Type: None Meds Medications and Allergies Allergies simvastatin Allergy (Unknown, Verified 12/19/24 08:50) Unknown Reaction Clbjqlg-SVZ-BhG Reductase Inhibitor (Aekacrk-Mnx-Sce Reductase Inhibitor) Allergy (Unknown, Verified 12/19/24 08:50) Muscle Pain tramadol Allergy (Verified 12/19/24 08:50) Itching niacin ER Allergy (Uncoded 08/22/24 08:31) itching Home Medications hydralazine 100 mg tablet 100 mg PO TID 30 days #90 tabs 06/09/21 [Rx Confirmed 12/21/24] niacin 500 mg tablet 500 mg PO DAILY 30 days #30 tabs 06/09/21 [Rx Confirmed 12/21/24] amlodipine 10 mg tablet 10 mg PO DAILY 07/21/22 [History Confirmed 12/21/24] isosorbide dinitrate 10 mg tablet 10 mg PO TID 07/21/22 [History Confirmed 12/21/24] apixaban 2.5 mg tablet (Eliquis) 2.5 mg PO BID 03/03/23 [History Confirmed 12/21/24] blood sugar diagnostic (Contour Next Test Strips) 12/15/23 [History Confirmed 12/19/24] cholecalciferol (vitamin D3) 125 mcg (5,000 unit) tablet 5,000 unit PO DAILY 12/15/23 [History Confirmed 12/21/24] metoprolol succinate 100 mg tablet,extended release 24 hr 100 mg PO DAILY 12/15/23 [History Confirmed 12/21/24] furosemide 80 mg tablet 80 mg PO DAILY 30 days #30 tabs 12/18/23 [Rx Confirmed 12/21/24] fluticasone fur. 200 mcg-umeclid 62.5 mcg-vilant 25 mcg inhalat.powder (Trelegy Ellipta) 1 inh inhalation DAILY 90 days #90 ea 02/15/24 [Rx Confirmed 12/21/24] ezetimibe 10 mg tablet 10 mg PO DAILY 03/01/24 [History Confirmed 12/21/24] allopurinol 100 mg tablet 100 mg PO DAILY 90 days #90 tabs 06/05/24 [Rx Confirmed 12/21/24] acetaminophen 500 mg tablet (Acetaminophen Extra Strength) 1,000 mg PO DIRECTED PRN pain 08/12/24 [History Confirmed 12/21/24] losartan 25 mg tablet 25 mg PO DAILY 08/12/24 [History Confirmed 12/21/24] potassium chloride 10 mEq tablet,extended release(part/cryst) See Rx Instructions .Route .COMPLEX #90 tabs 10/15/24 [Rx Confirmed 12/21/24] amiodarone 200 mg tablet 200 mg PO DAILY 11/08/24 [History Confirmed 12/21/24] Exam Physical Exam Vital Signs: Temp Pulse Resp BP Pulse Ox O2 Del Method O2 Flow Rate 98.5 F 70 18 156/67 H 92 L Nasal Cannula 2 12/22/24 12:00 12/22/24 13:14 12/22/24 13:14 12/22/24 12:00 12/22/24 12:00 12/22/24 12:00 12/22/24 12:00 FiO2 2 12/22/24 00:00 Narrative: GEN: AAOx3. No acute distress. Neck: No JVD. Lungs: Clear to auscultation bilaterally Heart: Regular rate and rhythm. Normal S1 and S2. No murmurs or rubs appreciated. Abdomen: Soft, nontender, nondistended, bowel sounds present. Extremities: No BLE edema. Neuro: AAOx3. No focal deficits. Results - Cardiology Labs 12/22/24 05:09 12/22/24 05:09 Lab results: CBC 12/22/24 Range/Units 05:09 RBC 3.64 L (3.90-5.60) x10E6/uL Hgb 11.7 L (13.0-17.0) g/dL Hct 34.4 L (38.8-50.0) % Plt Count 170 (150-450) x10E3/uL Neut # (Auto) 9.8 H (1.8-7.7) x10E3/uL Lymph # (Auto) 0.8 L (1.00-4.8) x10E3/uL Reagan # (Auto) 0.9 H (0.0-0.8) x10E3/uL Eos # (Auto) 0.2 (0.0-0.45) x10E3/uL Baso # (Auto) 0.1 (0.0-0.2) x10E3/uL Comprehensive Metabolic Panel 12/22/24 Range/Units 05:09 Sodium 142 (136-145) mmol/L Potassium 3.7 (3.5-5.1) mmol/L Chloride 104 (98-107) mmol/L Carbon Dioxide 30.4 (21.0-31.0) mmol/L BUN 58 H (7-25) mg/dL Creatinine 2.61 H (0.70-1.30) mg/dL Glucose 143 H (70-100) mg/dL Calcium 8.4 L (8.6-10.3) mg/dL Intake and Output 12/21/24 12/22/24 12/22/24 23:59 08:59 15:59 Intake Total 450 / 450 Output Total 1200 / 1200 Balance -750 / -750 Intake: Oral 450 / 450 Output: Urine Amount (Catheter) 1200 / 1200 Urethral (Camacho) 1200 / 1200 Other: Weight 97.6 kg 97.6 kg Date of Last Bowel Movement 12/20/24 12/20/24 Patient Weight 12/23/24 00:59 Weight 97.6 kg A&P - Cardiology (1) Femoral neck fracture: Code(s): S72.009A - Fracture of unspecified part of neck of unspecified femur, initial encounter for closed fracture (2) Chronic HFrEF (heart failure with reduced ejection fraction): Code(s): I50.22 - Chronic systolic (congestive) heart failure (3) Type 2 diabetes mellitus with hyperglycemia: Qualifiers: Diabetes mellitus middle or intermediate school principal insulin use: without mcc use Qualified Code(s): E11.65 - Type 2 diabetes mellitus with hyperglycemia Code(s): E11.65 - Type 2 diabetes mellitus with hyperglycemia (4) Primary hypertension: Code(s): I10 - Essential (primary) hypertension (5) Stage 4 chronic kidney disease: Code(s): N18.4 - Chronic kidney disease, stage 4 (severe) (6) Paroxysmal atrial fibrillation: Code(s): I48.0 - Paroxysmal atrial fibrillation (7) Obstructive sleep apnea: Code(s): G47.33 - Obstructive sleep apnea (adult) (pediatric) Plan Assessment: Preop cardiac risk stratification History of atrial flutter and atrial fibrillation status post ablation and recent cardioversion Nonischemic dilated cardiomyopathy status post BiV ICD Hypertension Hyperlipidemia DM2 CKD 4 Echo 09/19/2024 showed EF of 35-40% with mild LV dilatation, biatrial enlargement, RVSP of 49 mmHg. Recommendations: - Patient has an RCRI score of 2 (10% risk of major cardiac event). He is however optimized from a cardiovascular standpoint. He is euvolemic with no angina. He achieves >4 METS without limitations. EKG shows BiV paced rhythm with no ischemia. -Patient is optimized for surgery, may proceed without further testing. -Continue current medications. -Cardiology will be available perioperatively Documented By: Krysten Bowers MD 12/22/24 1538 Signed By: 12/22/24 1547 [facility]03-09-2025 Evaluation note* Diagnosis Onset Date Resolution Status Admit Date Chronic HFrEF (heart failure with reduced ejection fraction) acute December 21, 2024 10:13pm Femoral neck fracture acute [facility] 2024 10:13pm A-fib inactive December 21 10:13pm Acute kidney injury superimp osed on CKD inactive December 21, 2024 10:13pm Acute on chronic anemia inactive [facility] 2024 10:13pm Aspiration pneumonia inactive [facility] 2024 10:13pm Coronary artery disease inactive [facility] 2024 10:13pm Impaired mobility and activi ties of daily living inactive December 21, 2024 10:13pm Mucopurulent chronic bronchitis inac tive December 21, 2024 10:13pm Obstructive sleep apnea inactive [facility] 2024 10:13pm Pacemaker inactive December 21 10:13pm Paroxysmal atrial fibrillation inact dina December 21, 2024 10:13pm Primary hypertension inactive [facility] 2024 10:13pm Pulmonary hypertension inactive [facility] 2024 10:13pm Type 2 diabetes mellitus wit h hyperglycemia inactive December 21, 2024 10:13pm Hypertensive chronic kidney disease with stage 1 through stage 4 chronic ki deleted December 21, 2024 10:13pm Stage 4 chronic kidney disease delet ed December 21, 2024 10:13pm Chronic HFrEF (heart failure with reduced ejection fraction) acute December 27, 2024 2:06pm Femoral neck fracture acute [facility] 2024 2:06pm Hypercholesteremia acute December 27, 2024 2:06pm Iron deficiency anemia acute [facility] 2024 2:06pm Nonischemic dilated cardiomyopathy a cute December 27, 2024 2:06pm Positive fecal occult blood test acu te December 27, 2024 2:06pm A-fib inactive December 27 2:06pm Acute kidney injury superimp osed on CKD inactive December 27, 2024 2:06pm Acute on chronic anemia inactive [facility] 2024 2:06pm Aspiration pneumonia inactive [facility] 2024 2:06pm Coronary artery disease inactive [facility] 2024 2:06pm Impaired mobility and activi ties of daily living inactive December 27, 2024 2:06pm Malignant neoplasm of right colon in active December 27, 2024 2:06pm Mucopurulent chronic bronchitis inac tive December 27, 2024 2:06pm Paroxysmal atrial fibrillation inact dina December 27, 2024 2:06pm Type 2 diabetes mellitus wit h hyperglycemia inactive December 27, 2024 2:06pm Hypertensive chronic kidney disease with stage 1 through stage 4 chronic ki deleted December 27, 2024 2:06pm Stage 4 chronic kidney disease delet ed December 27, 2024 2:06pm Femoral neck fracture acute Apr 2024 9:53am Status post hemiarthroplasty of right hip acute January 14, 2025 9:53am Anemia of renal disease acute A pril 2024 10:53am Chronic HFrEF (heart failure with reduced ejection fraction) acute January 20, 2025 10:53am Hyperlipidemia type II acute Ap ril 2024 10:53am Secondary hyperparathyroidism acute January 20, 2025 10:53am Type 2 diabetes mellitus wit h diabetic chronic kidney disease acute January 20, 2025 10:53am Hypertensive chronic kidney disease with stage 1 through stage 4 chronic ki deleted January 20, 2025 10:53am Stage 4 chronic kidney disease delet ed January 20, 2025 10:53am Acute blood loss anemia acute A pril 2024 1:59pm Chronic bronchitis, simple acute January 28, 2025 1:59pm Chronic HFrEF (heart failure with reduced ejection fraction) acute January 28, 2025 1:59pm Chronic kidney disease acute Ap ril 2024 1:59pm Femoral neck fracture acute Apr il 2024 1:59pm Hypotension after procedure acute January 28, 2025 1:59pm 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 January 28, 2025 1:59pm Nonischemic dilated cardiomyopathy a cute January 28, 2025 1:59pm Femoral neck fracture acute February 25, 2025 11:18am Status post hemiarthroplasty of right hip acute February 25, 2025 11:18am Trochanteric bursitis, left hip acut e February 25, 2025 11:18am Colon cancer deleted February 28 1:52pm [facility] Work Phone: 1(256) 520-134103-06-2025 Evaluation note* Diagnosis Onset Date Resolution Status Admit Date Chronic bronchitis, simple acute December 19, 2024 8:49am Chronic HFrEF (heart failure with reduced ejection fraction) acute December 19, 2024 8:49am Colon cancer acute December 19, 2 025 8:49am Hypothyroidism due to medication acute December 19, 2024 8:49am Nonischemic dilated cardiomyopathy acute December 19, 2024 8:49am Obstructive sleep apnea acute 2024 8:49am Paroxysmal atrial fibrillation acute December 19, 2024 8:49am Primary hypertension acute [facility] 2024 8:49am Stage 4 chronic kidney disease acute December 19, 2024 8:49am Thyrotoxicosis acute December 19, 2024 8:49am Type 2 diabetes mellitus wit h hyperglycemia acute December 19, 2024 8:49am Medicare annual wellness vis it, subsequent noneactive December 19, 2024 8:49am Screening PSA (prostate specific antigen) noneactive December 19 8:49am A-fib acute December 21 10:13pm Acute kidney injury superimposed on CKD acute December 21 10:13pm Acute on chronic anemia acute 2024 10:13pm Aspiration pneumonia acute [facility] 2024 10:13pm Chronic HFrEF (heart failure with reduced ejection fraction) acute December 21, 2024 10:13pm Coronary artery disease acute 2024 10:13pm Femoral neck fracture acute Dec 10:13pm Hypertensive chronic kidney disease with stage 1 through stage 4 chronic ki acute December 21 10:13pm Impaired mobility and activities of daily living acute December 21, 2024 10:13pm Mucopurulent chronic bronchitis acut e December 21, 2024 10:13pm Obstructive sleep apnea acute 2024 10:13pm Pacemaker acute December 21 10:13pm Paroxysmal atrial fibrillation acute December 21, 2024 10:13pm Primary hypertension acute [facility] 2024 10:13pm Pulmonary hypertension acute [facility] 2024 10:13pm Stage 4 chronic kidney disease acute December 21, 2024 10:13pm Type 2 diabetes mellitus wit h hyperglycemia acute December 21, 2024 10:13pm [facility] Work Phone: 1(657) 926-577603-06-2025 Evaluation note* Diagnosis Onset Date Resolution Status Admit Date Chronic bronchitis, simple acute December 19, 2024 8:49am Colon cancer acute December 19, 2 025 8:49am 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 December 19, 2024 8:49am Nonischemic dilated cardiomyopathy acute December 19, 2024 8:49am Thyrotoxicosis acute December 19, 2024 8:49am Chronic HFrEF (heart failure with reduced ejection fraction) inactive December 19, 2024 8:49am Obstructive sleep apnea inactive 2024 8:49am Paroxysmal atrial fibrillation inact dina December 19, 2024 8:49am Primary hypertension inactive [facility] 2024 8:49am Stage 4 chronic kidney disease inact dina December 19, 2024 8:49am Type 2 diabetes mellitus wit h hyperglycemia inactive December 19, 2024 8:49am Medicare annual wellness vis it, subsequent noneactive December 19, 2024 8:49am Screening PSA (prostate spec ific antigen) noneactive December 19, 2024 8:49am Femoral neck fracture acute Dec 10:13pm A-fib inactive December 21 10:13pm Acute kidney injury superimp osed on CKD inactive December 21, 2024 10:13pm Acute on chronic anemia inactive [facility] 2024 10:13pm Aspiration pneumonia inactive [facility] 2024 10:13pm Chronic HFrEF (heart failure with reduced ejection fraction) inactive December 21, 2024 10:13pm Coronary artery disease inactive [facility] 2024 10:13pm Hypertensive chronic kidney disease with stage 1 through stage 4 chronic ki inactive December 21 10:13pm Impaired mobility and activi ties of daily living inactive December 21, 2024 10:13pm Mucopurulent chronic bronchitis inac tive December 21, 2024 10:13pm Obstructive sleep apnea inactive [facility] 2024 10:13pm Pacemaker inactive December 21 10:13pm Paroxysmal atrial fibrillation inact dina December 21, 2024 10:13pm Primary hypertension inactive [facility] 2024 10:13pm Pulmonary hypertension inactive [facility] 2024 10:13pm Stage 4 chronic kidney disease inact dina December 21, 2024 10:13pm Type 2 diabetes mellitus wit h hyperglycemia inactive December 21, 2024 10:13pm Femoral neck fracture acute Mar 2024 2:06pm Hypercholesteremia acute December 27, 2024 2:06pm Iron deficiency anemia acute [facility] 2024 2:06pm Malignant neoplasm of right colon ac tico December 27, 2024 2:06pm Nonischemic dilated cardiomyopathy acute December 27, 2024 2:06pm Positive fecal occult blood test acu te December 27, 2024 2:06pm A-fib inactive December 27 2:06pm Acute kidney injury superimp osed on CKD inactive December 27, 2024 2:06pm Acute on chronic anemia inactive [facility] 2024 2:06pm Aspiration pneumonia inactive [facility] 2024 2:06pm Chronic HFrEF (heart failure with reduced ejection fraction) inactive December 27, 2024 2:06pm Coronary artery disease inactive [facility] 2024 2:06pm Hypertensive chronic kidney disease with stage 1 through stage 4 chronic ki inactive December 27, 2 025 2:06pm Impaired mobility and activi ties of daily living inactive December 27, 2024 2:06pm Mucopurulent chronic bronchitis inac tive December 27, 2024 2:06pm Paroxysmal atrial fibrillation inact dina December 27, 2024 2:06pm Stage 4 chronic kidney disease inact dina December 27, 2024 2:06pm Type 2 diabetes mellitus wit h hyperglycemia inactive December 27, 2024 2:06pm [facility] Work Phone: 1(810) 365-197603-06-2025 Evaluation note* Diagnosis Onset Date Resolution Status Admit Date Chronic bronchitis, simple acute December 19, 2024 8:49am Colon cancer acute December 19, 2 025 8:49am 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 December 19, 2024 8:49am Nonischemic dilated cardiomyopathy acute December 19, 2024 8:49am Thyrotoxicosis acute December 19, 2024 8:49am Chronic HFrEF (heart failure with reduced ejection fraction) inactive December 19, 2024 8:49am Obstructive sleep apnea inactive [facility] 2024 8:49am Paroxysmal atrial fibrillation inact dina December 19, 2024 8:49am Primary hypertension inactive [facility] 2024 8:49am Stage 4 chronic kidney disease inact dina December 19, 2024 8:49am Type 2 diabetes mellitus wit h hyperglycemia inactive December 19, 2024 8:49am Medicare annual wellness vis it, subsequent noneactive December 19, 2024 8:49am Screening PSA (prostate spec ific antigen) noneactive December 19, 2024 8:49am Femoral neck fracture acute [facility] 2024 10:13pm A-fib inactive December 21 10:13pm Acute kidney injury superimp osed on CKD inactive December 21, 2024 10:13pm Acute on chronic anemia inactive [facility] 2024 10:13pm Aspiration pneumonia inactive [facility] 2024 10:13pm Chronic HFrEF (heart failure with reduced ejection fraction) inactive December 21, 2024 10:13pm Coronary artery disease inactive [facility] 2024 10:13pm Hypertensive chronic kidney disease with stage 1 through stage 4 chronic ki inactive December 21 10:13pm Impaired mobility and activi ties of daily living inactive December 21, 2024 10:13pm Mucopurulent chronic bronchitis inac tive December 21, 2024 10:13pm Obstructive sleep apnea inactive [facility] 2024 10:13pm Pacemaker inactive December 21 10:13pm Paroxysmal atrial fibrillation inact dina December 21, 2024 10:13pm Primary hypertension inactive [facility] 2024 10:13pm Pulmonary hypertension inactive [facility] 2024 10:13pm Stage 4 chronic kidney disease inact dina December 21, 2024 10:13pm Type 2 diabetes mellitus wit h hyperglycemia inactive December 21, 2024 10:13pm Femoral neck fracture acute [facility] 2024 2:06pm Hypercholesteremia acute December 27, 2024 2:06pm Iron deficiency anemia acute [facility] 2024 2:06pm Malignant neoplasm of right colon ac tico December 27, 2024 2:06pm Nonischemic dilated cardiomyopathy acute December 27, 2024 2:06pm Positive fecal occult blood test acu te December 27, 2024 2:06pm A-fib inactive December 27 2:06pm Acute kidney injury superimp osed on CKD inactive December 27, 2024 2:06pm Acute on chronic anemia inactive [facility] 2024 2:06pm Aspiration pneumonia inactive [facility] 2024 2:06pm Chronic HFrEF (heart failure with reduced ejection fraction) inactive December 27, 2024 2:06pm Coronary artery disease inactive [facility] 2024 2:06pm Hypertensive chronic kidney disease with stage 1 through stage 4 chronic ki inactive December 27, 2 025 2:06pm Impaired mobility and activi ties of daily living inactive December 27, 2024 2:06pm Mucopurulent chronic bronchitis inac tive December 27, 2024 2:06pm Paroxysmal atrial fibrillation inact dina December 27, 2024 2:06pm Stage 4 chronic kidney disease inact dina December 27, 2024 2:06pm Type 2 diabetes mellitus wit h hyperglycemia inactive December 27, 2024 2:06pm Femoral neck fracture acute Jan 9:53am Status post hemiarthroplasty of right hip acute January 14, 2025 9:53am [facility] Work Phone: 1(676) 249-953503-06-2025 Evaluation note* Diagnosis Onset Date Resolution Status Admit Date Chronic bronchitis, simple acute December 19, 2024 8:49am Chronic HFrEF (heart failure with reduced ejection fraction) acute December 19, 2024 8:49am Colon cancer acute December 19, 025 8:49am 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 December 19, 2024 8:49am Nonischemic dilated cardiomyopathy acute December 19, 2024 8:49am Stage 4 chronic kidney disease acute December 19, 2024 8:49am Thyrotoxicosis acute December 19, 2024 8:49am Obstructive sleep apnea inactive [facility] 2024 8:49am Paroxysmal atrial fibrillation inact dina December 19, 2024 8:49am Primary hypertension inactive [facility] 2024 8:49am Type 2 diabetes mellitus wit h hyperglycemia inactive December 19, 2024 8:49am Medicare annual wellness vis it, subsequent noneactive December 19, 2024 8:49am Screening PSA (prostate spec ific antigen) noneactive December 19, 2024 8:49am Chronic HFrEF (heart failure with reduced ejection fraction) acute December 21, 2024 10:13pm Femoral neck fracture acute Dec 10:13pm Hypertensive chronic kidney disease with stage 1 through stage 4 chronic ki acute December 21 10:13pm Stage 4 chronic kidney disease acute December 21, 2024 10:13pm A-fib inactive December 21 10:13pm Acute kidney injury superimp osed on CKD inactive December 21, 2024 10:13pm Acute on chronic anemia inactive [facility] 2024 10:13pm Aspiration pneumonia inactive [facility] 2024 10:13pm Coronary artery disease inactive [facility] 2024 10:13pm Impaired mobility and activi ties of daily living inactive December 21, 2024 10:13pm Mucopurulent chronic bronchitis inac tiDecember 21, 2024 10:13pm Obstructive sleep apnea inactive [facility] 2024 10:13pm Pacemaker inactive December 21 10:13pm Paroxysmal atrial fibrillation inact dina December 21, 2024 10:13pm Primary hypertension inactive [facility] 2024 10:13pm Pulmonary hypertension inactive [facility] 2024 10:13pm Type 2 diabetes mellitus wit h hyperglycemia inactive December 21, 2024 10:13pm Chronic HFrEF (heart failure with reduced ejection fraction) acute December 27, 2024 2:06pm Femoral neck fracture acute [facility] 2024 2:06pm Hypercholesteremia acute December 27, 2024 2:06pm Hypertensive chronic kidney disease with stage 1 through stage 4 chronic ki acute December 27, 025 2:06pm Iron deficiency anemia acute [facility] 2024 2:06pm Nonischemic dilated cardiomyopathy acute December 27, 2024 2:06pm Positive fecal occult blood test acu te December 27, 2024 2:06pm Stage 4 chronic kidney disease acute December 27, 2024 2:06pm A-fib inactive December 27 2:06pm Acute kidney injury superimp osed on CKD inactive December 27, 2024 2:06pm Acute on chronic anemia inactive [facility] 2024 2:06pm Aspiration pneumonia inactive [facility] 2024 2:06pm Coronary artery disease inactive [facility] 2024 2:06pm Impaired mobility and activi ties of daily living inactive December 27, 2024 2:06pm Malignant neoplasm of right colon in active December 27, 2024 2:06pm Mucopurulent chronic bronchitis inac tive December 27, 2024 2:06pm Paroxysmal atrial fibrillation inact dina December 27, 2024 2:06pm Type 2 diabetes mellitus wit h hyperglycemia inactive December 27, 2024 2:06pm Femoral neck fracture acute Apr 2024 9:53am Status post hemiarthroplasty of right hip acute January 14, 2025 9:53am Anemia of renal disease acute A pril 2024 10:53am Chronic HFrEF (heart failure with reduced ejection fraction) acute January 20, 2025 10:53am Hyperlipidemia type II acute Ap ril 2024 10:53am Hypertensive chronic kidney disease with stage 1 through stage 4 chronic ki acute January 20 10:53am Secondary hyperparathyroidism acute January 20, 2025 10:53am Stage 4 chronic kidney disease acute January 20, 2025 10:53am Type 2 diabetes mellitus wit h diabetic chronic kidney disease acute January 20, 2025 10:53am [facility] Work Phone: 1(412) 754-377203-06-2025 Evaluation note* Diagnosis Onset Date Resolution Status Admit Date Chronic bronchitis, simple acute December 19, 2024 8:49am Chronic HFrEF (heart failure with reduced ejection fraction) acute December 19, 2024 8:49am Colon cancer acute December 19, 8:49am 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 December 19, 2024 8:49am Nonischemic dilated cardiomyopathy acute December 19, 2024 8:49am Thyrotoxicosis acute December 19, 2024 8:49am Obstructive sleep apnea inactive [facility] 2024 8:49am Paroxysmal atrial fibrillation inact dina December 19, 2024 8:49am Primary hypertension inactive [facility] 2024 8:49am Type 2 diabetes mellitus wit h hyperglycemia inactive December 19, 2024 8:49am Stage 4 chronic kidney disease delet ed December 19, 2024 8:49am Medicare annual wellness vis it, subsequent noneactive December 19, 2024 8:49am Screening PSA (prostate spec ific antigen) noneactive December 19, 2024 8:49am Chronic HFrEF (heart failure with reduced ejection fraction) acute December 21, 2024 10:13pm Femoral neck fracture acute Dec 10:13pm A-fib inactive December 21 10:13pm Acute kidney injury superimp osed on CKD inactive December 21, 2024 10:13pm Acute on chronic anemia inactive [facility] 2024 10:13pm Aspiration pneumonia inactive [facility] 2024 10:13pm Coronary artery disease inactive [facility] 2024 10:13pm Impaired mobility and activi ties of daily living inactive December 21, 2024 10:13pm Mucopurulent chronic bronchitis inac tive December 21, 2024 10:13pm Obstructive sleep apnea inactive [facility] 2024 10:13pm Pacemaker inactive December 21 10:13pm Paroxysmal atrial fibrillation inact dina December 21, 2024 10:13pm Primary hypertension inactive [facility] 2024 10:13pm Pulmonary hypertension inactive [facility] 2024 10:13pm Type 2 diabetes mellitus wit h hyperglycemia inactive December 21, 2024 10:13pm Hypertensive chronic kidney disease with stage 1 through stage 4 chronic ki deleted December 21 10:13pm Stage 4 chronic kidney disease delet ed December 21, 2024 10:13pm Chronic HFrEF (heart failure with reduced ejection fraction) acute December 27, 2024 2:06pm Femoral neck fracture acute [facility] 2024 2:06pm Hypercholesteremia acute December 27, 2024 2:06pm Iron deficiency anemia acute [facility] 2024 2:06pm Nonischemic dilated cardiomyopathy acute December 27, 2024 2:06pm Positive fecal occult blood test acu te December 27, 2024 2:06pm A-fib inactive December 27 2:06pm Acute kidney injury superimp osed on CKD inactive December 27, 2024 2:06pm Acute on chronic anemia inactive [facility] 2024 2:06pm Aspiration pneumonia inactive [facility] 2024 2:06pm Coronary artery disease inactive [facility] 2024 2:06pm Impaired mobility and activi ties of daily living inactive December 27, 2024 2:06pm Malignant neoplasm of right colon in active December 27, 2024 2:06pm Mucopurulent chronic bronchitis inac tive December 27, 2024 2:06pm Paroxysmal atrial fibrillation inact dina December 27, 2024 2:06pm Type 2 diabetes mellitus wit h hyperglycemia inactive December 27, 2024 2:06pm Hypertensive chronic kidney disease with stage 1 through stage 4 chronic ki deleted December 27, 2 025 2:06pm Stage 4 chronic kidney disease delet ed December 27, 2024 2:06pm Femoral neck fracture acute Jan 9:53am Status post hemiarthroplasty of right hip acute January 14, 2025 9:53am Anemia of renal disease acute A pril 2024 10:53am Chronic HFrEF (heart failure with reduced ejection fraction) acute January 20, 2025 10:53am Hyperlipidemia type II acute Ap ril 2024 10:53am Secondary hyperparathyroidism acute January 20, 2025 10:53am Type 2 diabetes mellitus wit h diabetic chronic kidney disease acute January 20, 2025 10:53am Hypertensive chronic kidney disease with stage 1 through stage 4 chronic ki deleted January 20 10:53am Stage 4 chronic kidney disease delet ed January 20, 2025 10:53am Chronic bronchitis, simple acute January 28, 2025 1:59pm Chronic HFrEF (heart failure with reduced ejection fraction) acute January 28, 2025 1:59pm Chronic kidney disease acute Ap 2024 1:59pm 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 January 28, 2025 1:59pm Nonischemic dilated cardiomyopathy acute January 28, 2025 1:59pm Thyrotoxicosis acute January 1:59pm [facility] Work Phone: 1(114) 455-935403-06-2025 Evaluation note* Diagnosis Onset Date Resolution Status Admit Date Chronic bronchitis, simple acute December 19, 2024 8:49am Chronic HFrEF (heart failure with reduced ejection fraction) acute December 19, 2024 8:49am Colon cancer acute December 19, 025 8:49am 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 December 19, 2024 8:49am Nonischemic dilated cardiomyopathy acute December 19, 2024 8:49am Thyrotoxicosis acute December 19, 2024 8:49am Obstructive sleep apnea inactive [facility] 2024 8:49am Paroxysmal atrial fibrillation inact dina December 19, 2024 8:49am Primary hypertension inactive [facility] 2024 8:49am Type 2 diabetes mellitus wit h hyperglycemia inactive December 19, 2024 8:49am Stage 4 chronic kidney disease delet ed December 19, 2024 8:49am Medicare annual wellness vis it, subsequent noneactive December 19, 2024 8:49am Screening PSA (prostate spec ific antigen) noneactive December 19, 2024 8:49am Chronic HFrEF (heart failure with reduced ejection fraction) acute December 21, 2024 10:13pm Femoral neck fracture acute [facility] 2024 10:13pm A-fib inactive December 21 10:13pm Acute kidney injury superimp osed on CKD inactive December 21, 2024 10:13pm Acute on chronic anemia inactive [facility] 2024 10:13pm Aspiration pneumonia inactive [facility] 2024 10:13pm Coronary artery disease inactive [facility] 2024 10:13pm Impaired mobility and activi ties of daily living inactive December 21, 2024 10:13pm Mucopurulent chronic bronchitis inac tive December 21, 2024 10:13pm Obstructive sleep apnea inactive [facility] 2024 10:13pm Pacemaker inactive December 21 10:13pm Paroxysmal atrial fibrillation inact dina December 21, 2024 10:13pm Primary hypertension inactive [facility] 2024 10:13pm Pulmonary hypertension inactive [facility] 2024 10:13pm Type 2 diabetes mellitus wit h hyperglycemia inactive December 21, 2024 10:13pm Hypertensive chronic kidney disease with stage 1 through stage 4 chronic ki deleted December 21 10:13pm Stage 4 chronic kidney disease delet ed December 21, 2024 10:13pm Chronic HFrEF (heart failure with reduced ejection fraction) acute December 27, 2024 2:06pm Femoral neck fracture acute [facility] 2024 2:06pm Hypercholesteremia acute December 27, 2024 2:06pm Iron deficiency anemia acute [facility] 2024 2:06pm Nonischemic dilated cardiomyopathy acute December 27, 2024 2:06pm Positive fecal occult blood test acu te December 27, 2024 2:06pm A-fib inactive December 27 2:06pm Acute kidney injury superimp osed on CKD inactive December 27, 2024 2:06pm Acute on chronic anemia inactive [facility] 2024 2:06pm Aspiration pneumonia inactive [facility] 2024 2:06pm Coronary artery disease inactive [facility] 2024 2:06pm Impaired mobility and activi ties of daily living inactive December 27, 2024 2:06pm Malignant neoplasm of right colon in active December 27, 2024 2:06pm Mucopurulent chronic bronchitis inac tive December 27, 2024 2:06pm Paroxysmal atrial fibrillation inact dina December 27, 2024 2:06pm Type 2 diabetes mellitus wit h hyperglycemia inactive December 27, 2024 2:06pm Hypertensive chronic kidney disease with stage 1 through stage 4 chronic ki deleted December 27, 025 2:06pm Stage 4 chronic kidney disease delet ed December 27, 2024 2:06pm Femoral neck fracture acute Apr 2024 9:53am Status post hemiarthroplasty of right hip acute January 14, 2025 9:53am Anemia of renal disease acute A pril 2024 10:53am Chronic HFrEF (heart failure with reduced ejection fraction) acute January 20, 2025 10:53am Hyperlipidemia type II acute Ap ril 2024 10:53am Secondary hyperparathyroidism acute January 20, 2025 10:53am Type 2 diabetes mellitus wit h diabetic chronic kidney disease acute January 20, 2025 10:53am Hypertensive chronic kidney disease with stage 1 through stage 4 chronic ki deleted January 20 10:53am Stage 4 chronic kidney disease delet ed January 20, 2025 10:53am Acute blood loss anemia acute A pril 2024 1:59pm Chronic bronchitis, simple acute January 28, 2025 1:59pm Chronic HFrEF (heart failure with reduced ejection fraction) acute January 28, 2025 1:59pm Chronic kidney disease acute Ap ril 2024 1:59pm Femoral neck fracture acute Apr il 2024 1:59pm Hypotension after procedure acute January 28, 2025 1:59pm 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 January 28, 2025 1:59pm Nonischemic dilated cardiomyopathy acute January 28, 2025 1:59pm Colon cancer deleted February 24 9:34am Femoral neck fracture acute February 25, 2025 11:18am Status post hemiarthroplasty of right hip acute February 25, 2025 11:18am Trochanteric bursitis, left hip acut e February 25, 2025 11:18am [facility] Work Phone: 1(878) 938-572702-19-2025 History of Present illness Narrative* MANUELA Riddle - 12/04/2024 1:00 PM EST Pt picked up supplies documented in this encounterPutnam County Memorial [id number] NoteCardiovascular Medicine [facility] SUBJECTIVE Chief Complaint Patient presents with Atrial Fibrillation Atrial Flutter Delano Ren is a 84 y.o. male here [...] flutter (CMS/HCC) Proteinuria Type 2 diabetes mellitus ([facility]/HCC) COPD (chronic obstructive pulmonary disease) (CMS/HCC) Dilated [...] Current packs/day: 0.00 Types: Cigarettes Quit date: 1982 Years since quittin.1 Smokeless tobacco: Never Substance Use Topics Alcohol use: Yes Comment: OCCASIONAL Drug use: Never Allergies Allergen Reactions Tiugneg-Oiy-Wmb Reductase Inhibitors Tramadol ROS Cardiovascular: Positive for [...] movements intact. Pupils: Pupi (more content not included)...[facility] 11-13-2024 NotePatient here for follow up DCCV on 10/17/[address] Degroot. Denies chest pain, SOB, palpitations, lightheadedness/syncope, and bleeding on Eliquis. Review of Systems Hematologic/Lymphatic: Bruises/bleeds easily. All other systems reviewed and are negative.[facility] 10-17-2024 NoteDIRECT CARDIOVERSION PROCEDURE NOTE Date: 10/17/2024. Type of procedure: DC Cardioversion. Performed by: Trang Degroot MD Informed consent: Signed by patient. [...] stable. No complications noted. Plan: Continue anticoagulation. Trang Degroot MD Cardiac ElectrophysiologyUnFort Hamilton Hospital01-02-20[facility] Note Patient: Delano Ren Procedure Information Date/Time: 10/17/24 1230 Procedure: Cardioversion - PC APPROVED Location: [facility] / [facility] (Cath) Providers: Trang Degroot MD Clinical information reviewed: Allergies Meds Physical Exam Airway Mallampati: II TM distance: >3 FB Neck ROM: full Cardiovascular Dental Pulmonary Abdominal Anesthesia Plan ASA 3 CSE Anesthetic plan and risks discussed with patient. Use of blood products discussed with patient who. Additional Equipment RequestsAultman [facility]11-26-2024 Note amiUnFort [facility]11-26-2024 NoteUT Electrophysiology Consult Note Reason for visit: Afib and dilated CMP. 09/10/24 Patient underwent [employer] upgrade procedure on 06/12/2023. Subsequent echocardiogram in #2022 showed EF of 25 to 30%. EKG [...] III symptoms. EKG: V pacing. Prior HPI: Delano Ren is a 84 y.o. year old [...] infrahisian disease. He was brought back to [facility] on 02/12/2020 due to what was discussed [...] Procedure Laterality Date CARD (more content not included)...[facility]11-06-2024 History of Present illness Narrative* MANUELA Riddle - 08/21/2024 1:00 PM EST History: Pt here for hearing aid check [...] check of aids good both aids. Read aidsand increased overall gain. Pt indicated he was hearing well. Last audio was in 2022. Scheduled pt for audio + BURGESS check in 3 months. Will also clean pt's ears at that time if needed. documented in this encounterPutnam County Memorial [id number] NotePt is getting a colonoscopy in early August, is it alright to hold eliquis for two days prior to procedure?[facility]10-24-2024 History of Present illness Narrative* Avery Syed MD - 08/08/2024 10:30 AM EDT Images from the original note were not included. Date of Service: 08/08/24 PCP: YAS LINDA DO History of Present Illness Delano Ren is a 84 y.o. male, who [...] Follows with Dr. Rodriguez Pulmonary medicine in [place] 60% Left renal artery stenosis noted in the past Decreased left ventricular function ejection fraction 30%. [employer] [facility] at [facility]. His mostrecall his echo on 09/11/2023 showed an EF of 25-30%. He is no longer requiring a life vest. He is status post upgrade of permanent pacemaker to defibrillator an additional lead placement at the [facility] June 07, 2023. Grade 1 left ventricular diastolic dysfunction. Mild tricuspid regurgitation Mild mitral regurgitation Atrial flutter status post SUSAN cardioversion at [facility] in July of 2019.He did undergo an ablation after a hospital stay in October 2019. He is on anticoagulation with reduced dose Eliquis 2.5 mg p.o. b.I.d. 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 Adenocarcinoma the colon status post colectomy with reanastomosis in [facility] August 2021. Being followed by Oncology with [...] Interpersonal Safety: Unknown (12/07/2023) Received from [facility] Fear of Current or Ex-Partner: Not on file Emotionally Abused: Not on file Physically Abused: Not on file Sexually Abused: Not on file Physically or Sexually Abused: Not on file Housing Instability: Not on file Family History: Family History Problem Relation Age of Onset Diabetes Mother Hypertension Mother Diabetes Father Hypertension Father Allergies & Medications Allergies: Allergies Allergen Reactions Vkdfxde-Vrm-Bcq Reductase Inhibitors Current Meds: Current Outpatient Medications [...] results found for: IRONSAT , FERRITIN , [id number] , FOLATE Mineral and Bone Labs: No results found for: CALCIUM , PHOSPHORUS , VITD25 , PTH Urine Studies: Immunology Profile Imaging Echocardiogram: No results found. IMPRESSION Stage 4 chronic kidney disease: Delano's renal chemistries are stable. I would like [...] panel will be obtained then. Thank you YAS LINDA DO for the opportunity to participate in the care of your patients! Please contact me at [phone] (Office) or [phone] (Answering service) with any questions. AVERY SYED MD [facility] This note was created with the assistance of a speech-recognition program. Although the intention is to generate a document that actually reflects the content of the visit, no guarantees can be provided that every mistake has been identified and corrected by editing. AVERY SYED MD,PhD FACP [facility] ANY QUESTIONS FEEL FREE TO CALL: 1. OFFICE [phone] 2. ANSWERING SERVICE: [phone] documented in this encounterCommunity Regional Medical CenterCriticalMetrics [facility] [id number] NoteCardiovascular Medicine [facility] SUBJECTIVE Chief Complaint Patient presents with Atrial Fibrillation Coronary Artery Disease Delano Ren is a 84 y.o. male here for follow-up. HPI PMHx: chronic systolic heart failure, persistent afib, CAD, hypertension, and dilated cardiomyopathy s/p ICD He was in the ER last week for c/o low BP and dizziness. He went to [facility] and they told him he was in aflutter. He has hx of persistent a.fib. He has felt better since his ER visit. Denies c/o CP, dyspnea, orthopnea, PND, LE edema, dizziness/LH, palpitations, syncope. Last HPI per Dr. Ortiz: He is [...] OCCASIONAL Drug use: Never Allergies Allergen Reactions Mplwkez-Ljf-Fiz Reductase Inhibitors Tramadol ROS Cardiovascular: Positive for [...] niacin 500 mg tablet, (more content not included)...[facility]10-09-2024 NotePt is here for a follow up from [facility] ER. Pt denies sob, chest pain, and palpatations. Review of Systems Cardiovascular: Positive for leg swelling. Hematologic/Lymphatic: Bruises/bleeds easily. All other systems reviewed and are negative.[facility] 07-09-2024 History of Present illness Narrative* Sidra Deleon, DO - 07/09/2024 10:30 AM EDT Images from the original note were not included. Chief Complaint Patient presents with Sleep Apnea Subjective Delano Ren, 84 y.o., male HPI He feels [...] while in the morning without mask on andwhy full-time he snores and has apnea events [...] was councelled on the risks of stroke, NV, and sudden with MOLINA, along with the need for compliance with CPAP/BiPAP treatment. The patient was counseled on proper sleep hygiene and adequate hours of sleep. This was discussed with the patient, all questions were answered and they agreed with the treatmentplan. The patient is to call with any [...] to clinic: 1 year documented in this encounterPutnam County Memorial [id number] Miscellaneous Notes* Telephone Encounter - Roslyn Wagner - 04/29/2024 9:02 AM EDT Pts called to schedule July f/u appt in [place] with YOAN. Scheduled f/u appt and reminded to get labs 10 days prior. documented in this encounterSt. [facility]07-[facility] Telephone encounter Note* Telephone Encounter - Roslyn Bernard - 04/29/2024 9:02 AM EDT Pts called to schedule July f/u appt in [place] with JAIL. Scheduled f/u appt and reminded to get labs [address] [facility]04-[facility] History of Present illness Narrative* Avery Syed MD - 02/08/2024 10:30 AM EDT Images from the original note were not included. Date of Service: 02/08/24 PCP: YAS LINDA DO History of Present Illness Delano Ren is a 83 y.o. male, who was following us for history of stage 4 chronic kidney disease returning for nephrologic follow-up. When seen in September of 2023 the BUN was 47 creatinine is 2.35in EGFR was 27 mL/min. For lower extremity [...] hydroxy vitamin-D was 94.2 ng/mL. In general, Delano is doing well. There was no report [...] Follows with Dr. Rodriguez Pulmonary medicine in [place] 60% Left renal artery stenosis noted in the past Decreased left ventricular function ejection fraction 30%. [employer] [facility] at [facility]. His mostrecall his echo on 09/11/2023 showed an EF of 25-30%. He is no longer requiring a life vest. He is status post upgrade of permanent pacemaker to defibrillator an additional lead placement at the [facility] June 07, 2023. Grade 1 left ventricular diastolic dysfunction. Mild tricuspid regurgitation Mild mitral regurgitation Atrial flutter status post SUSAN cardioversion at [facility] in July of 2019.He did undergo an ablation after a hospital stay in October 2019. He is on anticoagulation with reduced dose Eliquis 2.5 mg p.o. b.I.d. 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 Adenocarcinoma the colon status post colectomy with reanastomosis in [facility] August 2021. Being followed by Oncology with [...] Interpersonal Safety: Unknown (12/07/2023) Received from [facility] Fear of Current or Ex-Partner: Not on file Emotionally Abused: Not on file Physically Abused: Not on file Sexually Abused: Not on file Physically or Sexually Abused: Not on file Housing Instability: Not on file Family History: Family History Problem Relation Age of Onset Diabetes Mother Hypertension Mother Diabetes Father Hypertension Father Allergies & Medications Allergies: Allergies Allergen Reactions Bxjztig-Zks-Bwf Reductase Inhibitors Current Meds: Current Outpatient Medications [...] results found for: IRONSAT , FERRITIN , [id number] , FOLATE Mineral and Bone Labs: No [...] volume status. Unfortunately he is not a candidatefor TOMMY inhibitors ,angiotensin receptor blockers, nonsteroidal mineralocorticoid [...] chemistries should be reassess then. Thank you YAS LINDA DO for the opportunity to participate in the care of your patients! Please contact me at [phone] (Office) or [phone] (Answering service) with any questions. AVERY SYED MD [facility] This note was created with the assistance of a speech-recognition program. Although the intention is to generate a document that actually reflects the content of the visit, no guarantees can be provided that every mistake has been identified and corrected by editing. documented in this encounterSt. Rita's Hospital04-25-2024 Instructions* Patient Instructions* Avery Syed MD - 02/08/2024 10:30 AM EDT Return in 6 months documented in this encounterSt. Rita's Hospital04-12-2024 Miscellaneous Notes* Telephone Encounter - Ketan Osullivan - 01/26/2024 10:56 AM EDT Confirm appt with patient for 02/07 as well remind to have labs done 10-7 days before apt documented in this encounterSt. Rita's Hospital04-12-2024 Telephone encounter Note* Telephone Encounter - Ketan Osullivan - 01/26/2024 10:56 AM EDT Confirm appt with patient for 02/07 as well remind to have labs done 10-[address] [facility] Evaluation note* Encounter Date Diagnosis Assessment Notes Treatment Notes Treatment Clinical Notes Dec, Thyrotoxicosis (ICD-10 - E05.90) Dec, Hypothyroidism due t o medication (ICD-10 - E03.2) [facility] Other 11-12-2023 Evaluation note* Encounter Date Diagnosis Assessment Notes Treatment Notes Treatment Clinical Notes Aug, Hyperuricemia (ICD-1 0 - E79.0) [facility] Other 11-07-2023 Evaluation note* Encounter Date Diagnosis [...] are maintaining regular scheduled appts with their database management system specialist. No bleeding complications Aug, Mucopurulent chronic bronchitis [...] is aware of the benefits associated with MLOINA: With continued use, the patient reduces the risk for NV, CVA, HTN, cardiac dysrhythmias and sudden cardiac [...] the risk for cerebrovascular and cardiovascular disease. [facility] Other 09-07-2023 Evaluation note* Encounter Date Diagnosis Assessment Notes Treatment Notes Treatment Clinical Notes Jun, Hypothyroidism due t o medication (ICD-10 - E03.2) [facility] Other 07-06-2023 Evaluation note* Encounter Date Diagnosis [...] use, the patient reduces the risk for NV, CVA, HTN, cardiac dysrhythmias and sudden cardiac [...] are maintaining regular scheduled appts with their database management system specialist. No bleeding compliations Initiated on [employer] Other 05-30-2023 Evaluation note* Encounter Date Diagnosis Assessment Notes Treatment Notes Treatment Clinical Notes February, Hypothyroidism due t o medication (ICD-10 - E03.2) [facility] Other 05-19-2023 Progress note Author Leigha Nelson [facility] March 03, 2023 2:31pm Note Date/Time March 03, 2023 2:21p m [facility] at [address] [place] [address] Hem/Onc Follow Up Note - OP Signed Patient: Delano Ren MR#: [id number] : 1940 Acct:[id number] Age/Sex: 82 / M Type: REG RCR Copies to: MD Yas Lui DO Timothy J Adamowicz, ALESSANDRA, DO~ [...] for coordination of care (as documented) and pfom-uv-npmd counseling of patient and/or family. [facility] - Medical History Medical History: Medical History [...] mellitus, type 2 Brother Cancer Son Blackfan Gol anemia - Social History Smoking Status: Former [...] Calcium 8.8, Iron 56, TIBC 281, Iron Ykghqvjyfq54.9 L, Transferrin 201 L, Ferritin 236.7, Total [...] % (Auto) 68.3, Lymph % (Auto) 17.9, Reagan % (Auto) 9.6, Eos % (Auto) 3.6, Baso % (Auto) 0.6, Nucleat RBC Rel Count 0.3, Neut # (Auto) 6.6, Lymph # (Auto) 1.7, Reagan # (Auto) 0.9 H, Eos # (Auto) 0.3, Baso # (Auto) 0.1 - Home Medications and Allergies Allergies/Adverse Reactions: Allergies Oprzosf-VCZ-VdB Reductase Inhibitor [Jntanzg-Jkr-Wzh Reductase Inhibitor] Allergy (Verified 03/03/23 13:45) Muscle [...] <Electronically signed by EDWARD Nelson> 03/03/23 1431 [facility] Work Phone: 1(434) 871-176805-02-2023 Evaluation note* Encounter Date Diagnosis Assessment Notes Treatment Notes Treatment Clinical Notes February, Thyrotoxicosis (ICD-10 - E05.90) [facility] Other 03-29-2023 Evaluation note* Encounter Date Diagnosis [...] cardiomyopathy (ICD-10 - I42.0) Continue healthy diet. [facility] Other 03-02-2023 Evaluation note* Encounter Date Diagnosis [...] use, the patient reduces the risk for NV, CVA, HTN, cardiac dysrhythmias and sudden cardiac [...] Z12.5) Dec, Cardiac pacemaker (ICD-10 - Z95.0) [facility] Other 01-30-2023 Evaluation note* Encounter Date Diagnosis Assessment Notes Treatment Notes Treatment Clinical Notes Oct, Other thyrotoxicosis without thyrotoxic crisis or storm (ICD-10 - E05.80) [facility] Other 11-18-2022 Progress note Author Chivo Keller [facility] September 02, 2022 2:38pm Note Date/Time September 02, 2022 2:33pm [facility] at [address] [address] Hem/Onc Follow Up Note - OP Signed Patient: Delano Ren MR#: [id number] : 1940 Acct:[id number] Age/Sex: 82 / M Type: REG RCR Copies to: MD Yas Lui DO~ Date of Service: 09/02/2022 Time of Service: 14:31 - Assessment & Plan (1) Colon cancer Plan: T2 N0 M0, stage I colon cancer resected in late 2021. Did not require adjuvant chemotherapy The patient [...] 81-year-old male previously cared for by Dr. Shutlz Past medical history includes COPD, type 2 [...] for coordination of care (as documented) and dqdr-eq-zsgl counseling of patient and/or family. [facility] - Medical History Medical History: Medical History [...] % (Auto) 68.3, Lymph % (Auto) 18.5, Reagan % (Auto) 8.4, Eos % (Auto) 4.3, Baso % (Auto) 0.5, Neut # (Auto) 4.6, Lymph # (Auto) 1.2, Reagan # (Auto) 0.6, Eos # (Auto) 0.3, Baso # (Auto) 0.0, Nucleated RBC % (auto) 0.1 - Home Medications and Allergies Allergies/Adverse Reactions: Allergies Azwowhi-GMW-NlY Reductase Inhibitor [Jxdqjmu-Shp-Jvk Reductase Inhibitor] Allergy (Verified 09/02/22 14:10) Muscle [...] by Chivo Keller II, DO> 09/02/22 1438 [facility] Work Phone: [phone]) 586-879310-06-2022 [facility] Progress note Author Leigha Nelson [facility] June 03, 2022 10:35am Note Date/Time June 03, 2022 10 :10am [facility] [place] [address] Hem/Onc Follow Up Note - OP Signed Patient: Delano Ren MR#: [id number] : 1940 Acct:[id number] Age/Sex: 82 / M Type: REG RCR Copies to: MD Yas Lui,DO Chivo Keller, II, DO~ Date of [...] for coordination of care (as documented) and lsjd-py-wxty counseling of patient and/or family. [facility] - Medical History Medical History: Medical History [...] % (Auto) 69.9, Lymph % (Auto) 17.2, Reagan % (Auto) 8.0, Eos % (Auto) 4.1, Baso % (Auto) 0.8, Neut # (Auto) 6.2, Lymph # (Auto) 1.5, Reagan # (Auto) 0.7, Eos # (Auto) 0.4, Baso # (Auto) 0.1, Nucleated RBC % (auto) 0.0 - Home Medications and Allergies Allergies/Adverse Reactions: Allergies Kgajmvj-FBY-GpH Reductase Inhibitor [Ciolqgr-Khk-Ucs Reductase Inhibitor] Allergy (Verified 06/03/22 09:55) Muscle [...] <Electronically signed by EDWARD Nelson> 06/03/22 1035 [facility] Work Phone: 1(192) 199-863206-18-2022 NoteMR#: [id number] [facility] Pt. Name: Delano Ren Admitted: 03/30/2022 Discharged: 04/02/2022 Date of : 1940 Physician: Gilmer Salazar MD DISCHARGE SUMMARY CONSULTING SERVICES: 1. Nephrology Service. 2. Endocrinology service. 3. Cardiology service. PRINCIPAL DIAGNOSES: 1. Qvgvw-so-hprqbmd heart failure, reduced ejection fraction of 35%. 2. Acute kidney injury on chronic kidney disease, stage 4, resolved. 3. Dyspnea, on exertion. 4. Essential hypertension. 5. History of coronary artery disease. 6. Iodine-induced hyperthyroidism, uncontrolled. 7. Qib-kgqkwuj-zijqptckt diabetes mellitus, diet controlled, A1c 6.4. 8. 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 The patient also require repeat [...] Adler PA-C Date Trans: 04/02/2022 02:36 P/hans [id number] cc: Yas Linda D.O. [address] [place] [address] [address] [facility] [id number] [facility]05-21-2022 NotePROCEDURE: XR CHEST 1 V REASON [...] Electronically authenticated by: NICK OLMEDO Date: 2022-03-05 21:29[facility]05-15-2022 Progress note Author Chivo Keller [facility] February 27, 2022 12:52pm Note Date/Time February 25, 2022 12:11 pm [facility] at [address] [address] Hem/Onc Follow Up Note - OP Signed Patient: Delano Ren MR#: [id number] : 1940 Acct:[id number] Age/Sex: 81 / M Type: REG RCR Copies to: MD Yas Lui DO~ Date of Service: 02/25/2022 Time of Service: [...] for coordination of care (as documented) and nruh-bx-jddn counseling of patient and/or family. [facility] - Medical History Medical History: Medical History [...] % (Auto) 65.1, Lymph % (Auto) 19.2, Reagan % (Auto) 13.3, Eos % (Auto) 1.8, Baso % (Auto) 0.6, Neut # (Auto) 4.2, Lymph # (Auto) 1.2, Reagan # (Auto) 0.9H, Eos # (Auto) 0.1, [...] Home Medications and Allergies Allergies/Adverse Reactions: Allergies Nrfwseo-BME-BcP Reductase Inhibitor [Sadcicn-Wvp-Tty Reductase Inhibitor] Allergy (Verified 02/25/22 11:39) Muscle [...] by Chivo Keller II, DO> 02/27/22 1252 [facility] Work Phone: 1(123) 766-406611-16-2021 Consult note Author Nikunj Shultz [facility] August 31, 2021 9:50am Note Date/Time August 31, 2021 9:33am [facility] at [address] [address] Hem/Onc Consult Note - OP Signed Patient: Delano Ren MR#: [id number] : 1940 Acct:[id number] Age/Sex: 81 / M Type: REG RCR Copies to: MD Yas Lui DO~ HPI Date/Time of Service: Date of Service: 08/31/2021 Time of Service: 09:32 Referring Provider/PCP: Referring Provider: Kalia Sánchez MD PCP: Yas Linda DO - History of Present Illness [...] 2021. He has recovered well from surgery. [facility] - Medical History Medical History: Medical History [...] Type: None Home Medications & Allergies Allergies Qzjwmno-KNF-NmW Reductase Inhibitor [Kfzakxk-Wno-Ofr Reductase Inhibitor] Allergy (Verified 08/31/21 08:57) Muscle [...] or Bravo syndrome. I will discuss with [facility] genetics and refer the patient for genetic testing. - Time with Patient Coordination of Care & Counseling Time: Greater than 50% of time spent with patient was for coordination of care (as documented) and pfgu-cc-vhuw counseling of patient and/or family. Dictated By: Nikunj Shultz MD DD/ 0932 Signed By: <Electronically signed by MD Nikunj Shultz> 08/31/21 0950 [facility] Work Phone: Evaluation note* Diagnosis Onset Date Resolution Status Colon cancer acute [facility] Work Phone: Evaluation noteNo [employer] [place] Other Evaluation note* Diagnosis Onset Date Resolution [...] antigen) noneactive Colon cancer acute [facility] Work Phone: Evaluation note* Diagnosis Onset [...] diabetes mellitus with hyperglycemia acute [facility] Work Phone: Evaluation note* Diagnosis Bilateral impacted cerumen- Primary Impacted cerumen documented in this encounter [facility] HealthcareEvaluation [facility]* Diagnosis MOLINA (obstructive sleep apnea)- Primary Obstructive sleep apnea (adult) (pediatric) Hypersomnia Hypersomnia, unspecified Primary insomnia Persistent disorder of initiating or maintaining sleep Snoring Other dyspnea and respiratory abnormality Hypoxia Hypoxemia documented in this encounter [facility] HealthcareEvaluation note* Diagnosis Stage 4 chronic kidney disease ([facility])- Primary documented in this encounter [facility]* Diagnosis Stage 4 chronic kidney disease ([facility])- Primary documented in this encounter [facility]* Diagnosis Sensorineural hearing loss (SNHL) of both ears- Primary documented in this encounter [facility] HealthcareEvaluation note* Diagnosis Onset Date Resolution Status Admit Date Chronic bronchitis, simple acute December 19, 2024 8:49am Chronic HFrEF (heart failure with reduced ejection fraction) acute December 19, 2024 8:49am Colon cancer acute December 19 8:49am Hypothyroidism due to medication acute December 19, 2024 8:49am Nonischemic dilated cardiomyopathy acute December 19, 2024 8:49am Obstructive sleep apnea acute 2024 8:49am Paroxysmal atrial fibrillation acute December 19, 2024 8:49am Primary hypertension acute 2024 8:49am Stage 4 chronic kidney disease acute December 19, 2024 8:49am Thyrotoxicosis acute December 19, 2024 8:49am Type 2 diabetes mellitus wit h hyperglycemia acute December 19, 2024 8:49am Medicare annual wellness vis it, subsequent noneactive December 19, 2024 8:49am Screening PSA (prostate specific antigen) noneactive December 19 8:49am [facility] Work Phone: Evaluation note* Diagnosis Diabetic polyneuropathy associated with type 2 diabetes mellitus ([facility])- Primary Onychodystrophy Other specified disease of nail Onychomycosis Dermatophytosis of nail documented in this encounter [facility] HealthcareEvaluation note* Diagnosis Greater trochanteric bursitis of left hip- Primary History of total hip arthroplasty, right Left hip pain Pain in joint, pelvic region and thigh documented in this encounter [facility]Evaluation note* Diagnosis Greater trochanteric bursitis of left hip- Primary History of total hip arthroplasty, right Left hip pain Pain in joint, pelvic region and thigh documented in this encounter [facility]* Diagnosis Greater trochanteric bursitis of left hip- Primary History of total hip arthroplasty, right Left hip pain Pain in joint, pelvic region and thigh documented in this encounter [facility]* Diagnosis Greater trochanteric bursitis of left hip- Primary History of total hip arthroplasty, right Left hip pain Pain in joint, pelvic region and thigh documented in this encounter [facility]* Diagnosis Greater trochanteric bursitis of left hip- Primary History of total hip arthroplasty, right Left hip pain Pain in joint, pelvic region and thigh documented in this encounter [facility]* Diagnosis Greater trochanteric bursitis of left hip- Primary History of total hip arthroplasty, right Left hip pain Pain in joint, pelvic region and thigh documented in this encounter [facility]* Diagnosis Greater trochanteric bursitis of left hip- Primary History of total hip arthroplasty, right Left hip pain Pain in joint, pelvic region and thigh documented in this encounter [facility]* Diagnosis Greater trochanteric bursitis of left hip- Primary History of total hip arthroplasty, right Left hip pain Pain in joint, pelvic region and thigh documented in this encounter [facility]* Diagnosis Greater trochanteric bursitis of left hip- Primary History of total hip arthroplasty, right Left hip pain Pain in joint, pelvic region and thigh documented in this encounter [facility]* Diagnosis Greater trochanteric bursitis of left hip- Primary History of total hip arthroplasty, right Left hip pain Pain in joint, pelvic region and thigh documented in this encounter [facility]* Diagnosis Greater trochanteric bursitis of left hip- Primary History of total hip arthroplasty, right Left hip pain Pain in joint, pelvic region and thigh documented in this encounter [facility]* Diagnosis Greater trochanteric bursitis of left hip- Primary History of total hip arthroplasty, right Left hip pain Pain in joint, pelvic region and thigh documented in this encounter [facility]* Diagnosis Greater trochanteric bursitis of left hip- Primary History of total hip arthroplasty, right Left hip pain Pain in joint, pelvic region and thigh documented in this encounter [facility]* Diagnosis Greater trochanteric bursitis of left hip- Primary History of total hip arthroplasty, right Left hip pain Pain in joint, pelvic region and thigh documented in this encounter [facility]* Diagnosis Greater trochanteric bursitis of left hip- Primary History of total hip arthroplasty, right Left hip pain Pain in joint, pelvic region and thigh documented in this encounter [facility]* Diagnosis Greater trochanteric bursitis of left hip- Primary History of total hip arthroplasty, right Left hip pain Pain in joint, pelvic region and thigh documented in this encounter [facility]* Diagnosis Greater trochanteric bursitis of left hip- Primary History of total hip arthroplasty, right Left hip pain Pain in joint, pelvic region and thigh documented in this encounter [facility]* Diagnosis Onychomycosis- Primary Dermatophytosis of nail Onychodystrophy Other specified disease of nail Diabetic polyneuropathy associated with type 2 diabetes mellitus (HCC) documented in this encounter [facility] note Author Ramesh Rascon [facility] July 21, 2022 9:27am Note Date/Time July 21, 2022 9: 27am [facility] [address] [place] [address] Gastroenterology H&P Signed Patient: Delano Ren MR#: [id number] : 1940 Acct:[id number] Age/Sex: 82 / M Adm Date: 2 Loc: Room: Type: [facility] Attending Dr: Ramesh Rascon MD Copies to: [...] <Electronically signed by Ramesh Rascon MD> 07/21/22926 [facility] Work Phone: History general Narrative - [...] HEART CATH 04/2016 Hospitalization History See above [facility] Other History general Narrative - Reported* Type [...] 08/2021 Surgical History [facility]- RIGHT HEART CATH Surgical History [facility]- LEFT HEART CATH 04/2016 Surgical History Colonoscopy w/ polypectomy, rep eat in year 07/2022 Hospitalization History See above [facility] Other History general Narrative - Reported* Type [...] Biventricular ICD 05/2023 Hospitalization History See above [facility] Other Hospital Discharge instructions Additional Instructions DISCHARGE [...] NOT operate machinery such as power tools, [employer] mowers, snow blowers, sewing machines, etc. for [...] Follow up with PCP. - Office number [phone].[facility] Work Phone: InstructionsNot on filedocumented in this encounter [facility] filedocumented in this encounter [facility] SystemProgress note Author Leigha Nelson [facility] June 03, 2022 10:35am Note Date/Time June 03, 2022 10 :10am [facility] [place] [id number] Hem/Onc Follow Up Note - OP Signed Patient: Delano Ren MR#: [id number] : 1940 Acct:[id number] Age/Sex: 82 / M Type: REG RCR Copies to: MD Yas Lui,DO Chivo Keller, ALESSANDRA, DO~ Date of Service: 06/03/2022 Time of [...] for coordination of care (as documented) and hmdp-dc-tort counseling of patient and/or family. [facility] - Medical History Medical History: Medical History [...] % (Auto) 69.9, Lymph % (Auto) 17.2, Reagan % (Auto) 8.0, Eos % (Auto) 4.1, Baso % (Auto) 0.8, Neut # (Auto) 6.2, Lymph # (Auto) 1.5, Reagan # (Auto) 0.7, Eos # (Auto) 0.4, Baso # (Auto) 0.1, Nucleated RBC % (auto) 0.0 - Home Medications and Allergies Allergies/Adverse Reactions: Allergies Fgtoqmt-SUP-CmG Reductase Inhibitor [Czhcdvd-Udv-Yrs Reductase Inhibitor] Allergy (Verified 06/03/22 09:55) Muscle [...] <Electronically signed by EDWARD Nelson> 06/03/22 1035 [facility] Work Phone: Progress note Author Chivo Keller [facility] September 02, 2022 2:38pm Note Date/Time September 02, 2022 2:33pm [facility] [place] [address] Hem/Onc Follow Up Note - OP Signed Patient: Delano Ren MR#: [id number] : 1940 Acct:[id number] Age/Sex: 82 / M Type: REG RCR Copies to: MD Yas Lui DO~ Date of Service: 09/02/2022 Time [...] for coordination of care (as documented) and bxpx-lf-adnh counseling of patient and/or family. [facility] - Medical History Medical History: Medical History [...] % (Auto) 68.3, Lymph % (Auto) 18.5, Reagan % (Auto) 8.4, Eos % (Auto) 4.3, Baso % (Auto) 0.5, Neut # (Auto) 4.6, Lymph # (Auto) 1.2, Reagan # (Auto) 0.6, Eos # (Auto) 0.3, Baso # (Auto) 0.0, Nucleated RBC % (auto) 0.1 - Home Medications and Allergies Allergies/Adverse Reactions: Allergies Wfxqnfc-WVK-VhS Reductase Inhibitor [Kvduson-Krh-Yia Reductase Inhibitor] Allergy (Verified 09/02/22 14:10) Muscle [...] by Chivo Keller II, DO> 09/02/22 1438 [facility] Work Phone: Progress note Author Chivo Keller [facility] September 01, 2023 2:14pm Note Date/Time September 01, 2023 2:09pm [facility] at [address] [address] Hem/Onc Follow Up Note - OP Signed Patient: Delano Ren MR#: [id number] : 1940 Acct:[id number] Age/Sex: 83 / M Type: REG RCR Copies to: MD Yas Lui,DO~ Date of Service: 09/01/2023 Time of [...] for coordination of care (as documented) and wrmk-cv-bwvt counseling of patient and/or family. [facility] - Medical History Medical History: Medical History [...] Calcium 9.7, Iron 84, TIBC 290, Iron Echbxiefvz27.0, Transferrin 207, Ferritin 239.3, Total Bilirubin 0.8, AST 23, ALT 20, Alkaline Phosphatase 114 H, Total Protein 6.9, Albumin 4.4, Globulin 2.5, Albumin/Globulin Ratio 1.8 08/30/23 09:32: Corrected WBC 7.0, Uncorrected WBC Count 7.0, RBC 3.96, Hgb 12.3L, Hct 36.8 L, MCV 92.8, MCH 30.9, MCHC 33.3, RDW 14.8, Plt Count 206, MPV 7.6, Neut % (Auto) 65.9, Lymph % (Auto) 21.9, Reagan % (Auto) 7.9, Eos % (Auto) 3.8, Baso % (Auto) 0.5, Nucleat RBC Rel Count 0.1, Neut # (Auto) 4.6, Lymph # (Auto) 1.5, Reagan # (Auto) 0.5, Eos # (Auto) 0.3, Baso # (Auto) 0.0 - Home Medications and Allergies Allergies/Adverse Reactions: Allergies Lzmcqmo-TKD-DgO Reductase Inhibitor [Kvmuavp-Jgg-Jrn Reductase Inhibitor] Allergy (Verified 03/03/23 13:45) Muscle [...] 1 mg tablet 1 mg PO DAILY 10/18/21 [History Confirmed 09/01/23] metoprolol succinate 50 mg [...] by Chivo Keller II, DO> 09/01/23 1414 [facility] Work Phone: Progress note Author Chivo Keller [facility] March 01, 2024 11:39am Note Date/Time March 01, 2024 11:[address] [facility] [place] [address] Cancer Center Note Signed Patient: Delano Ren MR#: [id number] : 1940 Acct:[id number] Age/Sex: 83 / M Type: REG AMB Date of Service: 03/01/24 Copies to: Yas Linda DO~ Assessment & Plan A/P (1) [...] Allergy (Unknown, Verified 12/18/23 10:02) Unknown Reaction Ewxvqli-UKR-BjI Reductase Inhibitor [Gtmxzny-Zkt-Mrv Reductase Inhibitor] Allergy (Unknown, Verified 12/18/23 10:02) [...] PO DAILY ezetimibe 10 mg PO DAILY tiwdsgghbpd-msomxhbxz-axoeyymq 200-62.5-25 mcg (Trelegy Ellipta) 1 inh inhalation [...] No concerns voiced at time of intake. [facility] Medical History Medical History (Updated 01/30/24 @ [...] by Chivo Keller II, DO> 03/01/24 1139 [facility] Work Phone: Reason for referral (narrative)No reason for referral information availableC[facility] Clinic [facility] Work Phone: Summary Purpose Family History [...] disease Unknown Unknown mother Heart disease Unknown Relationship Condition Age at Onset Recorded Date/T segrio father Congestive heart failure Unknown Unknown Heart disease Unknown mother Type 2 diabetes mellitus Unknown brother Malignant neoplasm Unknown son Congenital pure red cell aplasia Unknown Advance Directives No Advanced Directives Records [...] disease Type 2 diabetes mellitus with hyperglycemia Chief Complaint Admit Date wellness December 19, 2024 8:49 am Reason for Visit Admit Date Chronic bronchitis, simple December 19 8:49am Chronic HFrEF (heart failure with reduce d ejection fraction) December 19, 2024 8:49am Colon cancer December 19, 2024 8:49 am Hypothyroidism due to medication December 192024 8:49am Nonischemic dilated cardiomyopathy December 19, 2024 8:49am Obstructive sleep apnea December 19, 2024 8:49am Paroxysmal atrial fibrillation December 8:49am Primary hypertension December 19, 2024 8:4 9am Stage 4 chronic kidney disease December 8:49am Thyrotoxicosis December 19, 2024 8:49 am Type 2 diabetes mellitus with hyperglyce yossi December 19, 2024 8:49am Medicare annual wellness visit, subseque nt December 19, 2024 8:49am Screening PSA (prostate specific antigen ) December 19, 2024 8:49am Chief Complaint Admit Date wellness December 19, 2024 8:49 am right hip fracture December 21, 2024 10:1 3pm right hip fracture December 22, 2024 3:38 pm right hip fracture December 23, 2024 11: 41am right hip fracture December 24, 2024 3:1 5pm right hip fracture December 25, 2024 1:2 3pm Right Femoral Neck Fx s/p Delmar Arthropla sty December 27, 2024 2:06pm Reason for Visit Admit Date Chronic bronchitis, simple December 19 8:49am Chronic HFrEF (heart failure with reduce d ejection fraction) December 19, 2024 8:49am Colon cancer December 19, 2024 8:49 am Hypothyroidism due to medication December 192024 8:49am Nonischemic dilated cardiomyopathy December 19, 2024 8:49am Obstructive sleep apnea December 19, 2024 8:49am Paroxysmal atrial fibrillation December 8:49am Primary hypertension December 19, 2024 8:4 9am Stage 4 chronic kidney disease December 8:49am Thyrotoxicosis December 19, 2024 8:49 am Type 2 diabetes mellitus with hyperglyce yossi December 19, 2024 8:49am Medicare annual wellness visit, briane nt December 19, 2024 8:49am Screening PSA (prostate specific antigen ) December 19, 2024 8:49am A-fib December 21, 2024 10:1 3pm Acute kidney injury superimposed on CKD December 21, 2024 10:13pm Acute on chronic anemia December 21, 2024 10:13pm Aspiration pneumonia December 21, 2024 10: 13pm Chronic HFrEF (heart failure with reduce d ejection fraction) December 21, 2024 10:13pm Coronary artery disease December 21, 2024 10:13pm Femoral neck fracture December 21, 2024 10 :13pm Hypertensive chronic kidney disease with stage 1 through stage 4 chronic ki December 21, 2024 10:13pm Impaired mobility and activities of rohan y living December 21, 2024 10:13pm Mucopurulent chronic bronchitis December 10:13pm Obstructive sleep apnea December 21, 2024 10:13pm Pacemaker December 21, 2024 10:1 3pm Paroxysmal atrial fibrillation December 10:13pm Primary hypertension December 21, 2024 10: 13pm Pulmonary hypertension December 21, 2024 1 0:13pm Stage 4 chronic kidney disease December 10:13pm Type 2 diabetes mellitus with hyperglyce yossi December 21, 2024 10:13pm Chief Complaint Admit Date wellness December 19, 2024 8:49 am right hip fracture December 21, 2024 10:1 3pm right hip fracture December 22, 2024 11:1 6am right hip fracture December 22, 2024 3:38 pm right hip fracture December 23, 2024 11: 41am right hip fracture December 24, 2024 3:1 5pm right hip fracture December 25, 2024 1:2 3pm Right Femoral Neck Fx s/p Delmar Arthropla sty December 27, 2024 2:06pm Right Femoral Neck Fx s/p [place] Arthropla sty December 28, 2024 2:31pm Right Femoral Neck Fx s/p [place]mar Arthropla sty December 30, 2024 3:12pm Right Femoral Neck Fx s/p Delmar Arthropla sty January 03, 2025 11:04am Right Femoral Neck Fx s/p Delmar Arthropla sty January 04, 2025 5:49pm Right Femoral Neck Fx s/p Delmar Arthropla sty January 06, 2025 12:20pm Amb Documentation January 10, 2025 8:2 6am Reason for Visit Admit Date Chronic bronchitis, simple December 19 8:49am Colon cancer December 19, 2024 8:49 am Hypothyroidism due to medication December 192024 8:49am Nonischemic dilated cardiomyopathy December 19, 2024 8:49am Thyrotoxicosis December 19, 2024 8:49 am Chronic HFrEF (heart failure with reduce d ejection fraction) December 19, 2024 8:49am Obstructive sleep apnea December 19, 2024 8:49am Paroxysmal atrial fibrillation December 8:49am Primary hypertension December 19, 2024 8:4 9am Stage 4 chronic kidney disease December 8:49am Type 2 diabetes mellitus with hyperglyce yossi December 19, 2024 8:49am Medicare annual wellness visit, subseque nt December 19, 2024 8:49am Screening PSA (prostate specific antigen ) December 19, 2024 8:49am Femoral neck fracture December 21, 2024 10 :13pm A-fib December 21, 2024 10:1 3pm Acute kidney injury superimposed on CKD December 21, 2024 10:13pm Acute on chronic anemia December 21, 2024 10:13pm Aspiration pneumonia December 21, 2024 10: 13pm Chronic HFrEF (heart failure with reduce d ejection fraction) December 21, 2024 10:13pm Coronary artery disease December 21, 2024 10:13pm Hypertensive chronic kidney disease with stage 1 through stage 4 chronic ki December 21, 2024 10:13pm Impaired mobility and activities of rohan y living December 21, 2024 10:13pm Mucopurulent chronic bronchitis December 10:13pm Obstructive sleep apnea December 21, 2024 10:13pm Pacemaker December 21, 2024 10:1 3pm Paroxysmal atrial fibrillation December 10:13pm Primary hypertension December 21, 2024 10: 13pm Pulmonary hypertension December 21, 2024 1 0:13pm Stage 4 chronic kidney disease December 10:13pm Type 2 diabetes mellitus with hyperglyce yossi December 21, 2024 10:13pm Femoral neck fracture December 27, 2024 2 :06pm Hypercholesteremia December 27, 2024 2:0 6pm Iron deficiency anemia December 27, 2024 2:06pm Malignant neoplasm of right colon December 27, 2024 2:06pm Nonischemic dilated cardiomyopathy December 27, 2024 2:06pm Positive fecal occult blood test December 142024 2:06pm A-fib December 27, 2024 2:0 6pm Acute kidney injury superimposed on CKD December 27, 2024 2:06pm Acute on chronic anemia December 27, 2024 2:06pm Aspiration pneumonia December 27, 2024 2: 06pm Chronic HFrEF (heart failure with reduce d ejection fraction) December 27, 2024 2:06pm Coronary artery disease December 27, 2024 2:06pm Hypertensive chronic kidney disease with stage 1 through stage 4 chronic ki December 27, 2024 2:06pm Impaired mobility and activities of rohan y living December 27, 2024 2:06pm Mucopurulent chronic bronchitis December [id number] 2:06pm Paroxysmal atrial fibrillation December 2:06pm Stage 4 chronic kidney disease December 2:06pm Type 2 diabetes mellitus with hyperglyce yossi December 27, 2024 2:06pm Chief Complaint Admit Date wellness December 19, 2024 8:49 am right hip fracture December 21, 2024 10:1 3pm right hip fracture December 22, 2024 11:1 6am right hip fracture December 22, 2024 3:38 pm right hip fracture December 23, 2024 11: 41am right hip fracture December 24, 2024 3:1 5pm right hip fracture December 25, 2024 1:2 3pm Right Femoral Neck Fx s/p Delmar Arthropla sty December 27, 2024 2:06pm Right Femoral Neck Fx s/p [place] Arthropla sty December 28, 2024 2:31pm Right Femoral Neck Fx s/p [place]mar Arthropla sty December 30, 2024 3:12pm Right Femoral Neck Fx s/p [place]mar Arthropla sty January 03, 2025 11:04am Right Femoral Neck Fx s/p Delmar Arthropla sty January 04, 2025 5:49pm Right Femoral Neck Fx s/p Delmar Arthropla sty January 06, 2025 12:20pm Amb Documentation January 10, 2025 8:2 6am Z96.641 - 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 January 14, 2025 9:42am 2 WEEKS January 14, 2025 9:53 am Reason for Visit Admit Date Chronic bronchitis, simple December 19 8:49am Colon cancer December 19, 2024 8:49 am Hypothyroidism due to medication December 192024 8:49am Nonischemic dilated cardiomyopathy December 19, 2024 8:49am Thyrotoxicosis December 19, 2024 8:49 am Chronic HFrEF (heart failure with reduce d ejection fraction) December 19, 2024 8:49am Obstructive sleep apnea December 19, 2024 8:49am Paroxysmal atrial fibrillation December 8:49am Primary hypertension December 19, 2024 8:4 9am Stage 4 chronic kidney disease December 8:49am Type 2 diabetes mellitus with hyperglyce yossi December 19, 2024 8:49am Medicare annual wellness visit, subseque nt December 19, 2024 8:49am Screening PSA (prostate specific antigen ) December 19, 2024 8:49am Femoral neck fracture December 21, 2024 10 :13pm A-fib December 21, 2024 10:1 3pm Acute kidney injury superimposed on CKD December 21, 2024 10:13pm Acute on chronic anemia December 21, 2024 10:13pm Aspiration pneumonia December 21, 2024 10: 13pm Chronic HFrEF (heart failure with reduce d ejection fraction) December 21, 2024 10:13pm Coronary artery disease December 21, 2024 10:13pm Hypertensive chronic kidney disease with stage 1 through stage 4 chronic ki December 21, 2024 10:13pm Impaired mobility and activities of rohan y living December 21, 2024 10:13pm Mucopurulent chronic bronchitis December 10:13pm Obstructive sleep apnea December 21, 2024 10:13pm Pacemaker December 21, 2024 10:1 3pm Paroxysmal atrial fibrillation December 10:13pm Primary hypertension December 21, 2024 10: 13pm Pulmonary hypertension December 21, 2024 1 0:13pm Stage 4 chronic kidney disease December 10:13pm Type 2 diabetes mellitus with hyperglyce yossi December 21, 2024 10:13pm Femoral neck fracture December 27, 2024 2 :06pm Hypercholesteremia December 27, 2024 2:0 6pm Iron deficiency anemia December 27, 2024 2:06pm Malignant neoplasm of right colon December 27, 2024 2:06pm Nonischemic dilated cardiomyopathy December 27, 2024 2:06pm Positive fecal occult blood test December 142024 2:06pm A-fib December 27, 2024 2:0 6pm Acute kidney injury superimposed on CKD December 27, 2024 2:06pm Acute on chronic anemia December 27, 2024 2:06pm Aspiration pneumonia December 27, 2024 2: 06pm Chronic HFrEF (heart failure with reduce d ejection fraction) December 27, 2024 2:06pm Coronary artery disease December 27, 2024 2:06pm Hypertensive chronic kidney disease with stage 1 through stage 4 chronic ki December 27, 2024 2:06pm Impaired mobility and activities of rohan y living December 27, 2024 2:06pm Mucopurulent chronic bronchitis December [id number] 2:06pm Paroxysmal atrial fibrillation December 2:06pm Stage 4 chronic kidney disease December 2:06pm Type 2 diabetes mellitus with hyperglyce yossi December 27, 2024 2:06pm Femoral neck fracture January 14, 2025 9: 53am Status post hemiarthroplasty of right hi p January 14, 2025 9:53am Chief Complaint Admit Date wellness December 19, 2024 8:49 am right hip fracture December 21, 2024 10:1 3pm right hip fracture December 22, 2024 11:1 6am right hip fracture December 22, 2024 3:38 pm right hip fracture December 23, 2024 11: 41am right hip fracture December 24, 2024 3:1 5pm right hip fracture December 25, 2024 1:2 3pm Right Femoral Neck Fx s/p [place]mar Arthropla sty December 27, 2024 2:06pm Right Femoral Neck Fx s/p [place] Arthropla sty December 28, 2024 2:31pm Right Femoral Neck Fx s/p [place] Arthropla sty December 28, 2024 3:12pm Right Femoral Neck Fx s/p [place]mar Arthropla sty January 03, 2025 11:04am Right Femoral Neck Fx s/p [place] Arthropla sty January 04, 2025 5:49pm Right Femoral Neck Fx s/p [place]mar Arthropla sty January 06, 2025 12:20pm Amb Documentation January 10, 2025 8:2 6am Z96.641 - 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 January 14, 2025 9:42am 2 WEEKS January 14, 2025 9:53 am D64.9 N17.9 Z96.641 January 16, 2025 1:45 pm hospital f/u January 20, 2025 10:5 3am Reason for Visit Admit Date Chronic bronchitis, simple December 19 8:49am Chronic HFrEF (heart failure with reduce d ejection fraction) December 19, 2024 8:49am Colon cancer December 19, 2024 8:49 am Hypothyroidism due to medication December 192024 8:49am Nonischemic dilated cardiomyopathy December 19, 2024 8:49am Stage 4 chronic kidney disease December 8:49am Thyrotoxicosis December 19, 2024 8:49 am Obstructive sleep apnea December 19, 2024 8:49am Paroxysmal atrial fibrillation December 8:49am Primary hypertension December 19, 2024 8:4 9am Type 2 diabetes mellitus with hyperglyce yossi December 19, 2024 8:49am Medicare annual wellness visit, subseque nt December 19, 2024 8:49am Screening PSA (prostate specific antigen ) December 19, 2024 8:49am Chronic HFrEF (heart failure with reduce d ejection fraction) December 21, 2024 10:13pm Femoral neck fracture December 21, 2024 10 :13pm Hypertensive chronic kidney disease with stage 1 through stage 4 chronic ki December 21, 2024 10:13pm Stage 4 chronic kidney disease December 10:13pm A-fib December 21, 2024 10:1 3pm Acute kidney injury superimposed on CKD December 21, 2024 10:13pm Acute on chronic anemia December 21, 2024 10:13pm Aspiration pneumonia December 21, 2024 10: 13pm Coronary artery disease December 21, 2024 10:13pm Impaired mobility and activities of rohan y living December 21, 2024 10:13pm Mucopurulent chronic bronchitis December 10:13pm Obstructive sleep apnea December 21, 2024 10:13pm Pacemaker December 21, 2024 10:1 3pm Paroxysmal atrial fibrillation December 10:13pm Primary hypertension December 21, 2024 10: 13pm Pulmonary hypertension December 21, 2024 1 0:13pm Type 2 diabetes mellitus with hyperglyce yossi December 21, 2024 10:13pm Chronic HFrEF (heart failure with reduce d ejection fraction) December 27, 2024 2:06pm Femoral neck fracture December 27, 2024 2 :06pm Hypercholesteremia December 27, 2024 2:0 6pm Hypertensive chronic kidney disease with stage 1 through stage 4 chronic ki December 27, 2024 2:06pm Iron deficiency anemia December 27, 2024 2:06pm Nonischemic dilated cardiomyopathy December 27, 2024 2:06pm Positive fecal occult blood test December 142024 2:06pm Stage 4 chronic kidney disease December 2:06pm A-fib December 27, 2024 2:0 6pm Acute kidney injury superimposed on CKD December 27, 2024 2:06pm Acute on chronic anemia December 27, 2024 2:06pm Aspiration pneumonia December 27, 2024 2: 06pm Coronary artery disease December 27, 2024 2:06pm Impaired mobility and activities of rohan y living December 27, 2024 2:06pm Malignant neoplasm of right colon December 27, 2024 2:06pm Mucopurulent chronic bronchitis December [id number] 2:06pm Paroxysmal atrial fibrillation December 2:06pm Type 2 diabetes mellitus with hyperglyce yossi December 27, 2024 2:06pm Femoral neck fracture January 14, 2025 9: 53am Status post hemiarthroplasty of right hi p January 14, 2025 9:53am Anemia of renal disease January 20, 2025 10:53am Chronic HFrEF (heart failure with reduce d ejection fraction) January 20, 2025 10:53am Hyperlipidemia type II January 20, 2025 1 0:53am Hypertensive chronic kidney disease with stage 1 through stage 4 chronic ki January 20, 2025 10:53am Secondary hyperparathyroidism January 20, 2025 10:53am Stage 4 chronic kidney disease January 10:53am Type 2 diabetes mellitus with diabetic c hronic kidney disease January 20, 2025 10:53am Chief Complaint Admit Date wellness December 19, 2024 8:49 am right hip fracture December 21, 2024 10:1 3pm right hip fracture December 22, 2024 11:1 6am right hip fracture December 22, 2024 3:38 pm right hip fracture December 23, 2024 11: 41am right hip fracture December 24, 2024 3:1 5pm right hip fracture December 25, 2024 1:2 3pm Right Femoral Neck Fx s/p [place]mar Arthropla sty December 27, 2024 2:06pm Right Femoral Neck Fx s/p [place] Arthropla sty December 28, 2024 2:31pm Right Femoral Neck Fx s/p [place] Arthropla sty December 28, 2024 3:12pm Right Femoral Neck Fx s/p [place]mar Arthropla sty January 03, 2025 11:04am Right Femoral Neck Fx s/p [place] Arthropla sty January 04, 2025 5:49pm Right Femoral Neck Fx s/p [place] Arthropla sty January 06, 2025 12:20pm Amb Documentation January 10, 2025 8:2 6am Z96.641 - 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 January 14, 2025 9:42am 2 WEEKS January 14, 2025 9:53 am D64.9 N17.9 Z96.641 January 16, 2025 1:45 pm hospital f/u January 20, 2025 10:5 3am rehab-hip fracture 2 wk f/u January 28, 2025 1:59pm Reason for Visit Admit Date Chronic bronchitis, simple December 19 8:49am Chronic HFrEF (heart failure with reduce d ejection fraction) March 6th, 2025 8:49am Colon cancer December 19, 2024 8:49 am Hypothyroidism due to medication December 192024 8:49am Nonischemic dilated cardiomyopathy December 19, 2024 8:49am Thyrotoxicosis December 19, 2024 8:49 am Obstructive sleep apnea December 19, 2024 8:49am Paroxysmal atrial fibrillation December 8:49am Primary hypertension December 19, 2024 8:4 9am Type 2 diabetes mellitus with hyperglyce yossi December 19, 2024 8:49am Stage 4 chronic kidney disease December 8:49am Medicare annual wellness visit, subseque nt December 19, 2024 8:49am Screening PSA (prostate specific antigen ) December 19, 2024 8:49am Chronic HFrEF (heart failure with reduce d ejection fraction) December 21, 2024 10:13pm Femoral neck fracture December 21, 2024 10 :13pm A-fib December 21, 2024 10:1 3pm Acute kidney injury superimposed on CKD December 21, 2024 10:13pm Acute on chronic anemia December 21, 2024 10:13pm Aspiration pneumonia December 21, 2024 10: 13pm Coronary artery disease December 21, 2024 10:13pm Impaired mobility and activities of rohan y living December 21, 2024 10:13pm Mucopurulent chronic bronchitis December 10:13pm Obstructive sleep apnea December 21, 2024 10:13pm Pacemaker December 21, 2024 10:1 3pm Paroxysmal atrial fibrillation December 10:13pm Primary hypertension December 21, 2024 10: 13pm Pulmonary hypertension December 21, 2024 1 0:13pm Type 2 diabetes mellitus with hyperglyce yossi December 21, 2024 10:13pm Hypertensive chronic kidney disease with stage 1 through stage 4 chronic ki December 21, 2024 10:13pm Stage 4 chronic kidney disease December 10:13pm Chronic HFrEF (heart failure with reduce d ejection fraction) December 27, 2024 2:06pm Femoral neck fracture December 27, 2024 2 :06pm Hypercholesteremia December 27, 2024 2:0 6pm Iron deficiency anemia December 27, 2024 2:06pm Nonischemic dilated cardiomyopathy December 27, 2024 2:06pm Positive fecal occult blood test December 142024 2:06pm A-fib December 27, 2024 2:0 6pm Acute kidney injury superimposed on CKD December 27, 2024 2:06pm Acute on chronic anemia December 27, 2024 2:06pm Aspiration pneumonia December 27, 2024 2: 06pm Coronary artery disease December 27, 2024 2:06pm Impaired mobility and activities of rohan y living December 27, 2024 2:06pm Malignant neoplasm of right colon December 27, 2024 2:06pm Mucopurulent chronic bronchitis December 272024 2:06pm Paroxysmal atrial fibrillation December 2:06pm Type 2 diabetes mellitus with hyperglyce yossi December 27, 2024 2:06pm Hypertensive chronic kidney disease with stage 1 through stage 4 chronic ki December 27, 2024 2:06pm Stage 4 chronic kidney disease December 2:06pm Femoral neck fracture January 14, 2025 9: 53am Status post hemiarthroplasty of right hi p January 14, 2025 9:53am Anemia of renal disease January 20, 2025 10:53am Chronic HFrEF (heart failure with reduce d ejection fraction) January 20, 2025 10:53am Hyperlipidemia type II January 20, 2025 1 0:53am Secondary hyperparathyroidism January 20, 2025 10:53am Type 2 diabetes mellitus with diabetic c hronic kidney disease January 20, 2025 10:53am Hypertensive chronic kidney disease with stage 1 through stage 4 chronic ki January 20, 2025 10:53am Stage 4 chronic kidney disease January 10:53am Chronic bronchitis, simple January 28, 2 025 1:59pm Chronic HFrEF (heart failure with reduce d ejection fraction) January 28, 2025 1:59pm Chronic kidney disease January 28, 2025 1:59pm Hypothyroidism due to medication January 142024 1:59pm Nonischemic dilated cardiomyopathy January 28, 2025 1:59pm Thyrotoxicosis January 28, 2025 1:5 9pm Chief Complaint Admit Date wellness December 19, 2024 8:49 am right hip fracture December 21, 2024 10:1 3pm right hip fracture December 22, 2024 11:1 6am right hip fracture December 22, 2024 3:38 pm right hip fracture December 23, 2024 11: 41am right hip fracture December 24, 2024 3:1 5pm right hip fracture December 25, 2024 1:2 3pm Right Femoral Neck Fx s/p [place] Arthropla sty December 27, 2024 2:06pm Right Femoral Neck Fx s/p [place] Arthropla sty December 28, 2024 2:31pm Right Femoral Neck Fx s/p [place] Arthropla sty December 28, 2024 3:12pm Right Femoral Neck Fx s/p [place] Arthropla sty January 03, 2025 11:04am Right Femoral Neck Fx s/p [place] Arthropla sty January 04, 2025 5:49pm Right Femoral Neck Fx s/p [place] Arthropla sty January 06, 2025 12:20pm Amb Documentation January 10, 2025 8:2 6am Z96.641 - 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 January 14, 2025 9:42am 2 WEEKS January 14, 2025 9:53 am D64.9 N17.9 Z96.641 January 16, 2025 1:45 pm hospital f/u January 20, 2025 10:5 3am rehab-hip fracture 2 wk f/u January 28, 2025 1:59pm Colon Cancer February 24, 2025 9:34a m OP 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, [employer] February 11:18am Z96.641 - 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 February 25, 2025 11:28am Reason for Visit Admit Date Chronic bronchitis, simple December 19 8:49am Chronic HFrEF (heart failure with reduce d ejection fraction) December 19, 2024 8:49am Colon cancer December 19, 2024 8:49 am Hypothyroidism due to medication December 192024 8:49am Nonischemic dilated cardiomyopathy December 19, 2024 8:49am Thyrotoxicosis December 19, 2024 8:49 am Obstructive sleep apnea December 19, 2024 8:49am Paroxysmal atrial fibrillation December 8:49am Primary hypertension December 19, 2024 8:4 9am Type 2 diabetes mellitus with hyperglyce yossi December 19, 2024 8:49am Stage 4 chronic kidney disease December 8:49am Medicare annual wellness visit, subseque nt December 19, 2024 8:49am Screening PSA (prostate specific antigen ) December 19, 2024 8:49am Chronic HFrEF (heart failure with reduce d ejection fraction) December 21, 2024 10:13pm Femoral neck fracture December 21, 2024 10 :13pm A-fib December 21, 2024 10:1 3pm Acute kidney injury superimposed on CKD December 21, 2024 10:13pm Acute on chronic anemia December 21, 2024 10:13pm Aspiration pneumonia December 21, 2024 10: 13pm Coronary artery disease December 21, 2024 10:13pm Impaired mobility and activities of rohan y living December 21, 2024 10:13pm Mucopurulent chronic bronchitis December 10:13pm Obstructive sleep apnea December 21, 2024 10:13pm Pacemaker December 21, 2024 10:1 3pm Paroxysmal atrial fibrillation December 10:13pm Primary hypertension December 21, 2024 10: 13pm Pulmonary hypertension December 21, 2024 1 0:13pm Type 2 diabetes mellitus with hyperglyce yossi December 21, 2024 10:13pm Hypertensive chronic kidney disease with stage 1 through stage 4 chronic ki December 21, 2024 10:13pm Stage 4 chronic kidney disease December 10:13pm Chronic HFrEF (heart failure with reduce d ejection fraction) December 27, 2024 2:06pm Femoral neck fracture December 27, 2024 2 :06pm Hypercholesteremia December 27, 2024 2:0 6pm Iron deficiency anemia December 27, 2024 2:06pm Nonischemic dilated cardiomyopathy December 27, 2024 2:06pm Positive fecal occult blood test December 142024 2:06pm A-fib December 27, 2024 2:0 6pm Acute kidney injury superimposed on CKD December 27, 2024 2:06pm Acute on chronic anemia December 27, 2024 2:06pm Aspiration pneumonia December 27, 2024 2: 06pm Coronary artery disease December 27, 2024 2:06pm Impaired mobility and activities of rohan y living December 27, 2024 2:06pm Malignant neoplasm of right colon December 27, 2024 2:06pm Mucopurulent chronic bronchitis December 272024 2:06pm Paroxysmal atrial fibrillation December 2:06pm Type 2 diabetes mellitus with hyperglyce yossi December 27, 2024 2:06pm Hypertensive chronic kidney disease with stage 1 through stage 4 chronic ki December 27, 2024 2:06pm Stage 4 chronic kidney disease December 2:06pm Femoral neck fracture January 14, 2025 9: 53am Status post hemiarthroplasty of right hi p January 14, 2025 9:53am Anemia of renal disease January 20, 2025 10:53am Chronic HFrEF (heart failure with reduce d ejection fraction) January 20, 2025 10:53am Hyperlipidemia type II January 20, 2025 1 0:53am Secondary hyperparathyroidism January 20, 2025 10:53am Type 2 diabetes mellitus with diabetic c hronic kidney disease January 20, 2025 10:53am Hypertensive chronic kidney disease with stage 1 through stage 4 chronic ki January 20, 2025 10:53am Stage 4 chronic kidney disease January 10:53am Acute blood loss anemia January 28, 2025 1:59pm Chronic bronchitis, simple January 28, 025 1:59pm Chronic HFrEF (heart failure with reduce d ejection fraction) January 28, 2025 1:59pm Chronic kidney disease January 28, 2025 1:59pm Femoral neck fracture January 28, 2025 1 :59pm Hypotension after procedure January 28, 2025 1:59pm Hypothyroidism due to medication January 142024 1:59pm Nonischemic dilated cardiomyopathy January 28, 2025 1:59pm Colon cancer February 24, 2025 9:34a m Femoral neck fracture February 25, 2025 11: 18am Status post hemiarthroplasty of right hi p February 25, 2025 11:18am Trochanteric bursitis, left hip February 11:18am Chief Complaint Admit Date right hip fracture December 21, 2024 10:1 3pm right hip fracture December 25, 2024 1:2 3pm Right Femoral Neck Fx s/p [place]mar Arthropla sty December 27, 2024 2:06pm Right Femoral Neck Fx s/p [place] Arthropla sty December 28, 2024 2:31pm Right Femoral Neck Fx s/p [place] Arthropla sty December 28, 2024 3:12pm Right Femoral Neck Fx s/p [place] Arthropla sty January 03, 2025 11:04am Right Femoral Neck Fx s/p [place]mar Arthropla sty January 04, 2025 5:49pm Right Femoral Neck Fx s/p [place] Arthropla sty January 06, 2025 12:20pm Amb Documentation January 10, 2025 8:2 6am Z96.641 - 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 January 14, 2025 9:42am 2 WEEKS January 14, 2025 9:53 am D64.9 N17.9 Z96.641 January 16, 2025 1:45 pm hospital f/u January 20, 2025 10:5 3am rehab-hip fracture 2 wk f/u January 28, 2025 1:59pm OP 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, [employer] February 11:18am Z96.641 - 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 February 25, 2025 11:28am Follow Up 1 Year February 28, 2025 12:33 pm Colon Cancer February 28, 2025 1:52p m cut on arm looks infected March 25 1:04pm Reason for Visit Admit Date Chronic HFrEF (heart failure with reduce d ejection fraction) December 21, 2024 10:13pm Femoral neck fracture December 21, 2024 10 :13pm A-fib December 21, 2024 10:1 3pm Acute kidney injury superimposed on CKD December 21, 2024 10:13pm Acute on chronic anemia December 21, 2024 10:13pm Aspiration pneumonia December 21, 2024 10: 13pm Coronary artery disease December 21, 2024 10:13pm Impaired mobility and activities of [facility] December 21, 2024 10:13pm Mucopurulent chronic bronchitis December 10:13pm Obstructive sleep apnea December 21, 2024 10:13pm Pacemaker December 21, 2024 10:1 3pm Paroxysmal atrial fibrillation December 10:13pm Primary hypertension December 21, 2024 10: 13pm Pulmonary hypertension December 21, 2024 1 0:13pm Type 2 diabetes mellitus with hyperglyce yossi December 21, 2024 10:13pm Hypertensive chronic kidney disease with stage 1 through stage 4 chronic ki December 21, 2024 10:13pm Stage 4 chronic kidney disease December 10:13pm Chronic HFrEF (heart failure with reduce d ejection fraction) December 27, 2024 2:06pm Femoral neck fracture December 27, 2024 2 :06pm Hypercholesteremia December 27, 2024 2:0 6pm Iron deficiency anemia December 27, 2024 2:06pm Nonischemic dilated cardiomyopathy December 27, 2024 2:06pm Positive fecal occult blood test December 142024 2:06pm A-fib December 27, 2024 2:0 6pm Acute kidney injury superimposed on CKD December 27, 2024 2:06pm Acute on chronic anemia December 27, 2024 2:06pm Aspiration pneumonia December 27, 2024 2: 06pm Coronary artery disease December 27, 2024 2:06pm Impaired mobility and activities of [facility] December 27, 2024 2:06pm Malignant neoplasm of right colon December 27, 2024 2:06pm Mucopurulent chronic bronchitis December [id number] 2:06pm Paroxysmal atrial fibrillation December 2:06pm Type 2 diabetes mellitus with hyperglyce yossi December 27, 2024 2:06pm Hypertensive chronic kidney disease with stage 1 through stage 4 chronic ki December 27, 2024 2:06pm Stage 4 chronic kidney disease December 2:06pm Femoral neck fracture January 14, 2025 9: 53am Status post hemiarthroplasty of right hi p January 14, 2025 9:53am Anemia of renal disease January 20, 2025 10:53am Chronic HFrEF (heart failure with reduce d ejection fraction) January 20, 2025 10:53am Hyperlipidemia type II January 20, 2025 1 0:53am Secondary hyperparathyroidism January 20, 2025 10:53am Type 2 diabetes mellitus with diabetic c hronic kidney disease January 20, 2025 10:53am Hypertensive chronic kidney disease with stage 1 through stage 4 chronic ki January 20, 2025 10:53am Stage 4 chronic kidney disease January 10:53am Acute blood loss anemia January 28, 2025 1:59pm Chronic bronchitis, simple January 28, 2 025 1:59pm Chronic HFrEF (heart failure with reduce d ejection fraction) January 28, 2025 1:59pm Chronic kidney disease January 28, 2025 1:59pm Femoral neck fracture January 28, 2025 1 :59pm Hypotension after procedure January 28, 2025 1:59pm Hypothyroidism due to medication January 142024 1:59pm Nonischemic dilated cardiomyopathy January 28, 2025 1:59pm Femoral neck fracture February 25, 2025 11: 18am Status post hemiarthroplasty of right hi p February 25, 2025 11:18am Trochanteric bursitis, left hip February 11:18am Colon cancer February 28, 2025 1:52p m Chief Complaint Admit Date hospital f/u January 20, 2025 10:5 3am rehab-hip fracture 2 wk f/u January 28, 2025 1:59pm OP 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, [employer] February 11:18am Z96.641 - 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 February 25, 2025 11:28am Follow Up 1 Year February 28, 2025 12:33 pm Colon Cancer February 28, 2025 1:52p m cut on arm looks infected March 25 1:04pm 3 month f/u April 07, 2025 8:51 am RENAL 3 MONTH F/U April 17, 2025 3:08p m Reason for Visit Admit Date Anemia of renal disease January 20, 2025 10:53am Chronic HFrEF (heart failure with reduce d ejection fraction) January 20, 2025 10:53am Secondary hyperparathyroidism January 20, 2025 10:53am Type 2 diabetes mellitus with diabetic c hronic kidney disease January 20, 2025 10:53am Hyperlipidemia type II January 20, 2025 1 0:53am Hypertensive chronic kidney disease with stage 1 through stage 4 chronic ki January 20, 2025 10:53am Stage 4 chronic kidney disease January 10:53am Acute blood loss anemia January 28, 2025 1:59pm Chronic bronchitis, simple January 28, 2 025 1:59pm Chronic HFrEF (heart failure with reduce d ejection fraction) January 28, 2025 1:59pm Chronic kidney disease January 28, 2025 1:59pm Hypothyroidism due to medication January 142024 1:59pm Nonischemic dilated cardiomyopathy January 28, 2025 1:59pm Femoral neck fracture January 28, 2025 1 :59pm Hypotension after procedure January 28, 2025 1:59pm Femoral neck fracture February 25, 2025 11: 18am Status post hemiarthroplasty of right hi p February 25, 2025 11:18am Trochanteric bursitis, left hip February 11:18am Colon cancer February 28, 2025 1:52p m Skin tear of left forearm without compli cation March 25, 2025 1:04pm Cellulitis of arm, left March 25, 2025 1:04pm Acute blood loss anemia April 07, 2025 8:51am Chronic bronchitis, simple April 07 8:51am Chronic HFrEF (heart failure with reduce d ejection fraction) April 07, 2025 8:51am Chronic kidney disease April 07, 2025 8 :51am Colon cancer April 07, 2025 8:51 am History of thyrotoxicosis April 07 8:51am Hypercholesteremia April 07, 2025 8:51 am Hypothyroidism due to medication April 072024 8:51am Nonischemic dilated cardiomyopathy April 07, 2025 8:51am Anemia of renal disease April 17, 2025 3 :08pm Chronic HFrEF (heart failure with reduce d ejection fraction) April 17, 2025 3:08pm Secondary hyperparathyroidism April 17, 2025 3:08pm Type 2 diabetes mellitus with diabetic c hronic kidney disease April 17, 2025 3:08pm Chief Complaint Admit Date OP 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, [employer] February 11:18am Z96.641 - 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 February 25, 2025 11:28am Follow Up 1 Year February 28, 2025 12:33 pm Colon Cancer February 28, 2025 1:52p m cut on arm looks infected March 25 1:04pm 3 month f/u April 07, 2025 8:51 am RENAL 3 MONTH F/U April 17, 2025 3:08p m 10-12 WEEKS April 29, 2025 9:55 am Reason for Visit Admit Date Femoral neck fracture February 25, 2025 11: 18am Status post hemiarthroplasty of right hi p February 25, 2025 11:18am Trochanteric bursitis, left hip February 11:18am Colon cancer February 28, 2025 1:52p m Skin tear of left forearm without compli cation March 25, 2025 1:04pm Cellulitis of arm, left March 25, 2025 1:04pm Acute blood loss anemia April 07, 2025 8:51am Chronic bronchitis, simple April 07 8:51am Chronic HFrEF (heart failure with reduce d ejection fraction) April 07, 2025 8:51am Chronic kidney disease April 07, 2025 8 :51am Colon cancer April 07, 2025 8:51 am History of thyrotoxicosis April 07 8:51am Hypercholesteremia April 07, 2025 8:51 am Hypothyroidism due to medication April 072024 8:51am Nonischemic dilated cardiomyopathy April 07, 2025 8:51am Anemia of renal disease April 17, 2025 3 :08pm Chronic HFrEF (heart failure with reduce d ejection fraction) April 17, 2025 3:08pm Hypercholesteremia April 17, 2025 3:08p m Secondary hyperparathyroidism April 17, 2025 3:08pm Type 2 diabetes mellitus with diabetic c hronic kidney disease April 17, 2025 3:08pm Hypertensive chronic kidney disease with stage 1 through stage 4 chronic ki April 17, 2025 3:08pm Stage 4 chronic kidney disease April 17, 2025 3:08pm Femoral neck fracture April 29, 2025 9: 55am Status post hemiarthroplasty of right hi p April 29, 2025 9:55am Trochanteric bursitis, left hip April 9:55am Chief Complaint Admit Date cut on arm looks infected March 25 1:04pm 3 month f/u April 07, 2025 8:51 am RENAL 3 MONTH F/U April 17, 2025 3:08p m 10-12 WEEKS April 29, 2025 9:55 am Follow Up 3 Months June 06, 2025 12 :41pm Colon Cancer June 06, 2025 12 :43pm Reason for Visit Admit Date Skin tear of left forearm without compli cation March 25, 2025 1:04pm Cellulitis of arm, left March 25, 2025 1:04pm Acute blood loss anemia April 07, 2025 8:51am Chronic bronchitis, simple April 07 8:51am Chronic HFrEF (heart failure with reduced ejection fraction) April 07, 2025 8:51am Chronic kidney disease April 07, 2025 8 :51am Colon cancer April 07, 2025 8:51 am History of thyrotoxicosis April 07 8:51am Hypercholesteremia April 07, 2025 8:51 am Hypothyroidism due to medication April 072024 8:51am Nonischemic dilated cardiomyopathy April 07, 2025 8:51am Anemia of renal disease April 17, 2025 3 :08pm Chronic HFrEF (heart failure with reduced ejection fraction) April 17, 2025 3:08pm Hypercholesteremia April 17, 2025 3:08p m Secondary hyperparathyroidism April 17, 2025 3:08pm Type 2 diabetes mellitus wit h diabetic chronic kidney disease April 17, 2025 3:08pm Hypertensive chronic kidney disease with stage 1 through stage 4 chronic ki April 17, 2025 3:08pm Stage 4 chronic kidney disease April 17, 2025 3:08pm Femoral neck fracture April 29, 2025 9: 55am Status post hemiarthroplasty of right hi p April 29, 2025 9:55am Trochanteric bursitis, left hip April 9:55am Acute blood loss anemia June 06 12:41pm Colon cancer June 06, 2025 12 :41pm Secondary hyperparathyroidism May 12:41pm Colon cancer June 06, 2025 12 :43pm Additional Source Comments (unrecognized sect ion and content) No Status Records FoundNo Status Records FoundNo Status Records FoundNo Status Records FoundNo Status Records FoundNo Status Records Found INFORMATION SOURCE (unrecogn ized section and content) DATE CREATED AUTHOR 07/09/2021 [facility] DATE CREATED AUTHOR AUTHOR'S ORGANIZ ATION 06/10/2022 [facility] DATE CREATED AUTHOR AUTHOR'S ORGANIZ ATION 03/01/2023 [facility] DATE CREATED AUTHOR AUTHOR'S ORGANIZ ATION 05/27/2025 [facility] EPIC DATE CREATED AUTHOR AUTHOR'S ORGANIZ ATION 06/04/2025 [facility] DATE CREATED AUTHOR AUTHOR'S ORGANIZ ATION 06/30/2025 [facility] Care Teams (unrecognized sec tion and content) Team Status: Active Member Role Status Dates Yas Linda DO Primary Care Provider Active Team Status: Inactive Member Role Status Dates Yas Linda DO Primary Care Provider Active Start: March 25, 2025 End: March 25, 2025 Yas Linda DO Attending Provider Active Sta rt: March 25, 2025 End: March 25, 2025 Team Status: Inactive Member Role Status Dates Yas Linda DO Primary Care Provider Active Start: April 07, 2025 End: April 07, 2025 Yas Linda DO Attending Provider Active Sta rt: April 07, 2025 End: April 07, 2025 Team Status: Active Member Role Status Dates Yas Linda DO Primary Care Provider Active Start: April 08, 2025 Zahida Flowers MD Attending Provider Active Start : April 08, 2025 Team Status: Inactive Member Role Status Dates Yas Linda DO Primary Care Provider Active Start: April 17, 2025 End: April 17, 2025 Zahida Flowers MD Attending Provider Active Start : April 17, 2025 End: April 17, 2025 Team Status: Inactive Member Role Status Dates Yas Linda DO Primary Care Provider Active Start: April 29, 2025 End: April 29, 2025 Walker Soria MD Attending Provider Active Star t: April 29, 2025 End: April 29, 2025 Team Status: Inactive Member Role Status Dates Yas Linda DO Primary Care Provider Active Start: June 06, 2025 End: June 06, 2025 CHARLENE Azul Attending Provider Active Start: June 06, 2025 End: June 06, 2025 Team Status: Active Member Role Status Dates Yas Linda DO Primary Care Provider Active Start: June 06, 2025 Kalia Sánchez MD Referring Provider Active Sta rt: June 06, 2025 Chivo Keller II, DO Attending Provider Active Start: June 06, 2025 Team Status: Active Member Role Status Dates Yas Linda DO Primary Care Provider Active Start: February 20, 2025 Yas Linda DO Attending Provider Active Sta rt: February 20, 2025 Team Status: Inactive Member Role Status Dates Yas Linda DO Primary Care Provider Active Start: February 25, 2025 End: February 25, 2025 Walker Soria MD Attending Provider Active Star t: February 25, 2025 End: February 25, 2025 Team Status: Inactive Member Role Status Dates Walker Soria MD Attending Provider Active Star t: February 25, 2025 End: February 25, 2025 Yas Linda DO Primary Care Provider Active Start: February 25, 2025 End: February 25, 2025 Team Status: Inactive Member Role Status Dates Yas Linda DO Primary Care Provider Active Start: February 28, 2025 End: February 28, 2025 Chivo Keller II, DO Attending Provider Active Start: February 28, 2025 End: February 28, 2025 Team Status: Active Member Role Status Dates Yas Linda DO Primary Care Provider Active Start: February 28, 2025 Kalia Sánchez MD Referring Provider Active Sta rt: February 28, 2025 Chivo Keller II, DO Attending Provider Active Start: February 28, 2025 Team Status: Inactive Member Role Status Dates Yas Linda DO Primary Care Provide r, Attending Provider Active Start: December 19, 2024 End: December 19, 2024 Team Status: Active Member Role Status Dates Yas Linda DO Primary Care Provider Active Start: December 21, 2024 Johnnie Garcia MD Attending Provider Active Start : December 21, 2024 Team Status: Inactive Member Role Status Dates Yas Linda DO Primary Care Provider Active Start: December 21, 2024 End: December 27, 2024 Sudha Sood MD Admit Provider Active Start : December 21, 2024 End: December 27, 2024 Walker Soria MD Other Provider Active Start: [facility] 2024 End: December 27, 2024 Wendy Mota MD Other Provider Active Star t: December 21, 2024 End: December 27, 2024 Kiesha Hawley NP-C Other Provider Active Start: December 21, 2024 End: December 27, 2024 José Luis Winslow DO Other Provider Active Start : December 21, 2024 End: December 27, 2024 Mazin Erickson II, MD Other Provider Active S tart: December 21, 2024 End: December 27, 2024 Dario Rosales DO Other Provider Active Start: December 21, 2024 End: December 27, 2024 Emile Reynolds DO Attending Provider Active St art: December 21, 2024 End: December 27, 2024 Winsome Goff MD Other Provider Active Start: [facility] 2024 End: December 27, 2024 Judy Macias NP-C Other Provider Active Start: December 21, 2024 End: December 27, 2024 Zahida Flowers MD Other Provider Active Start: [facility] 2024 End: December 27, 2024 Kaitlynn Emanuel MD Other Provider Active Start: [facility] 2024 End: December 27, 2024 Talisha Hitchcock MD Other Provider Active Start: [facility] 2024 End: December 27, 2024 Sotero Black MD Other Provider Active Start: [facility] 2024 End: December 27, 2024 Brenda Driscoll APRN Other Provider Active St art: December 21, 2024 End: December 27, 2024 William Quinteros Jr, DO Other Provider Active S tart: December 21, 2024 End: December 27, 2024 Clyde Bedolla MD Other Provider Active Start: December 21, 2024 End: December 27, 2024 Team Status: Active Member Role Status Dates Yas Linda , Primary Care Provider Active Start: December 22, 2024 Sudha Sood MD Admit Provider Active Start : December 22, 2024 Walker Soria MD Other Provider Active Start: [facility] 2024 Wendy Mota MD Attending Provider , Other Provider Active Start: December 22, 2024 Kiesha Hawley NP-C Other Provider Active Start: December 22, 2024 José Luis Winslow DO Other Provider Active Start : December 22, 2024 Mazin Erickson II, MD Other Provider Active S tart: December 22, 2024 Dario Rosales DO Other Provider Active Start: December 22, 2024 Emile Reynolds DO Other Provider Active Start: December 22, 2024 Winsome Goff MD Other Provider Active Start: [facility] 2024 Judy Macias NP-C Other Provider Active Start: December 22, 2024 Zahida Flowers MD Other Provider Active Start: [facility] 2024 Kaitlynn Emanuel MD Other Provider Active Start: [facility] 2024 Talisha Hitchcock MD Other Provider Active Start: [facility] 2024 Sotero Black MD Other Provider Active Start: [facility] 2024 Brenda Driscoll APRN Other Provider Active St art: December 22, 2024 William Quinteros Jr, DO Other Provider Active S tart: December 22, 2024 Clyde Bedolla MD Other Provider Active Start: December 22, 2024 Team Status: Active Member Role Status Dates Yas Linda DO Primary Care Provider Active Start: December 22, 2024 Walker Soria MD Other Provider Active Start: [facility] 2024 Wendy Mota MD Other Provider Active Star t: December 22, 2024 JOSUE ButtC Other Provider Active Start: December 22, 2024 José Luis Winslow DO Other Provider Active Start : December 22, 2024 Mazin Erickson II, MD Other Provider Active S tart: December 22, 2024 Dario Rosales DO Other Provider Active Start: December 22, 2024 Sudha Sood MD Admit Provider Active Start : December 22, 2024 Jaye Jorgensen MD Other Provider Active Start: December 22, 2024 Danuta Salomon RN Other Provider Active Star t: December 22, 2024 Duncan Meier MD Other Provider Active Start: [facility] 2024 Adan Díaz MD Other Provider Active Start: December 22 Krysten Bowers MD Attending Provider, Other Provider Active Start: December 22, 2024 Team Status: Active Member Role Status Dates Yas Linda DO Primary Care Provider Active Start: December 23, 2024 Sudha Sood MD Admit Provider Active Start : December 23, 2024 Danuta Salomon RN Other Provider Active Star t: December 23, 2024 Duncan Meier MD Other Provider Active Start: arch 2024 Adan Díaz MD Other Provider Active Start: December 23 Krysten Bowers MD Other Provider Active Start: December 23, 2024 Walker Soria MD Attending Provider, Other Provider Active Start: December 23, 2024 Wendy Mota MD Other Provider Active Star t: December 23, 2024 JOSUE ButtC Other Provider Active Start: December 23, 2024 José Luis Winslow DO Other Provider Active Start : December 23, 2024 Mazin Erickson II, MD Other Provider Active S tart: December 23, 2024 Dario Rosales DO Other Provider Active Start: December 23, 2024 Emile Reynolds DO Other Provider Active Start: December 23, 2024 Team Status: Active Member Role Status Dates Yas Linda DO Primary Care Provider Active Start: December 24, 2024 Sudha Sood MD Admit Provider Active Start : December 24, 2024 Walker Soria MD Other Provider Active Start: [facility] 2024 Wendy Mota MD Other Provider Active Star t: December 24, 2024 CHARLENE Butt Other Provider Active Start: December 24, 2024 José Luis Winslow DO Other Provider Active Start : December 24, 2024 Mazin Erickson II, MD Other Provider Active S tart: December 24, 2024 Dario Rosales DO Other Provider Active Start: December 24, 2024 Emile Reynolds DO Other Provider Active Start: December 24, 2024 Talisha Hitchcock MD Other Provider Active Start: [facility] 2024 Sotero Black MD Other Provider Active Start: [facility] 2024 Brenda Driscoll APRN Other Provider Active St art: December 24, 2024 William Quinteros Jr, DO Other Provider Active S tart: December 24, 2024 Clyde Bedolla MD Other Provider Active Start: December 24, 2024 Winsome Goff MD Other Provider Active Start: [facility] 2024 CHARLENE Joyner Other Provider Active Start: December 24, 2024 Zahida Flowers MD Attending Provider, Other Provider Active Start: December 24, 2024 Kaitlynn Emanuel MD Other Provider Active Start: [facility] 2024 Team Status: Active Member Role Status Dates Yas Linda DO Primary Care Provider Active Start: December 25, 2024 Sudha Sood MD Admit Provider Active Start : December 25, 2024 Walker Soria MD Other Provider Active Start: [facility] 2024 Wendy Mota MD Other Provider Active Star t: December 25, 2024 CHARLENE Butt Other Provider Active Start: December 25, 2024 José Luis Winslow DO Other Provider Active Start : December 25, 2024 Mazin Erickson II, MD Other Provider Active S tart: December 25, 2024 Dario Rosales DO Other Provider Active Start: December 25, 2024 Emile Reynolds DO Other Provider Active Start: December 25, 2024 Winsome Goff MD Other Provider Active Start: [facility] 2024 CHARLENE Joyner Other Provider Active Start: December 25, 2024 Zahida Flowers MD Other Provider Active Start: [facility] 2024 Kaitlynn Emanuel MD Other Provider Active Start: [facility] 2024 Talisha Hitchcock MD Other Provider Active Start: [facility] 2024 Sotero Black MD Other Provider Active Start: [facility] 2024 Brenda Driscoll APRN Other Provider Active St art: December 25, 2024 William Quinteros Jr, DO Other Provider Active S tart: December 25, 2024 Clyde Bedolla MD Attending Sunny peter, Other Provider Active Start: December 25, 2024 Team Status: Inactive Member Role Status Dates Yas Linda DO Primary Care Provider Active Start: December 27, 2024 End: January 10, 2025 Sotero Black MD Admit Provider, Atte nding Provider Active Start: December 27, 2024 End: January 10, 2025 Noemy Bates , CAROL Other Provider Active Star t: December 27, 2024 End: January 10, 2025 Carolynn Jacobs , CAROL Other Provider Active Start : December 27, 2024 End: January 10, 2025 Gretel Kirkland , CAROL Other Provider Active Star t: December 27, 2024 End: January 10, 2025 Merissa Balbuena , CAROL Other Provider Active Start: [facility] 2024 End: January 10, 2025 Pati Brice , CAROL Other Provider Active Start: [facility] 2024 End: January 10, 2025 Vicky Jasso MD Other Provider Active Start: December 27, 2024 End: January 10, 2025 Kofi Bustamante DO Other Provider Active Start : December 27, 2024 End: January 10, 2025 Mario Salazar MD Other Provider Active Start : December 27, 2024 End: January 10, 2025 Rachid Adhikari DO Other Provider Active Start: December 27, 2024 End: January 10, 2025 Yassine De Lenó MD Other Provider Active Start: December 27, 2024 End: January 10, 2025 Sudha Sood MD Other Provider Active Start : December 27, 2024 End: January 10, 2025 Micah Curry DO Other Provider Active St art: December 27, 2024 End: January 10, 2025 Nav Peterson MD Other Provider Active Start: [facility] 2024 End: January 10, 2025 Zoie Field APRN Other Provider Active Start: December 27, 2024 End: January 10, 2025 Jaye Jorgensen MD Other Provider Active Start: December 27, 2024 End: January 10, 2025 Augustine Bishop MD Other Provider Active Start: [facility] 2024 End: January 10, 2025 Jan Prasad MD Other Provider Active Start: December 27, 2024 End: January 10, 2025 Shannan Vaelntin MD Other Provider Active Start: December 27, 2024 End: January 10, 2025 Micah Lyn DO Other Provider Active Start: December 27, 2024 End: January 10, 2025 Elliott Cole MD Other Provider Active Start: [facility] 2024 End: January 10, 2025 Yaron Devi MD Other Provider Active Start: [facility] 2024 End: January 10, 2025 Candi Stone NP-Saman Other Provider Active St art: December 27, 2024 End: January 10, 2025 Matthew Grey APRN Other Provider Active Star t: December 27, 2024 End: January 10, 2025 Kuldeep See MD Other Provider Active Start: December 27, 2024 End: January 10, 2025 Kings Goncalves MD Other Provider Active Start: [facility] 2024 End: January 10, 2025 Eloy Resendiz MD Other Provider Active Start: [facility] 2024 End: January 10, 2025 Jon Cowan MD Other Provider Active Star t: December 27, 2024 End: January 10, 2025 Elias Fermin MD Other Provider Active Start: [facility] 2024 End: January 10, 2025 Mirian Calvo DO Other Provider Active Start: [facility] 2024 End: January 10, 2025 Vish Bajwa DO Other Provider Active Start : December 27, 2024 End: January 10, 2025 Krysten Mcclelland APRN Other Provider Active Start: December 27, 2024 End: January 10, 2025 Emile Reynolds , Other Provider Active Start: December 27, 2024 End: January 10, 2025 Carole Burden MD Other Provider Active Sta rt: December 27, 2024 End: January 10, 2025 Siobhan Zhong APRN Other Provider Active Start : December 27, 2024 End: January 10, 2025 Aislinn Maria APRN Other Provider Active St art: December 27, 2024 End: January 10, 2025 Los Calderon MD Other Provider Active Start: [facility] 2024 End: January 10, 2025 Live Grajeda MD Other Provider Active S tart: December 27, 2024 End: January 10, 2025 Doron Diaz , Other Provider Active Star t: December 27, 2024 End: January 10, 2025 Kia Garg DO Other Provider Active Start: December 27, 2024 End: January 10, 2025 Wolfgang Resendiz MD Other Provider Active Start: December 27, 2024 End: January 10, 2025 India Haley MD Other Provider Active Start: December 27 End: January 10, 2025 Lisa Sotelo APRN Other Provider Active Star t: December 27, 2024 End: January 10, 2025 Magnolia Pierce MD Other Provider Active Start: [facility] 2024 End: January 10, 2025 Laurent Jain MD Other Provider Active Start: [facility] 2024 End: January 10, 2025 Sotero Mijares MD Other Provider Active Start: December 27, 2024 End: January 10, 2025 Nav Harmon MD Other Provider Active Start : December 27, 2024 End: January 10, 2025 Dano Monson MD Other Provider Active Start: [facility] 2024 End: January 10, 2025 Aria Schaffer APRN Other Provider Active Sta rt: December 27, 2024 End: January 10, 2025 Alvina Ch APRN Other Provider Active Start: December 27 End: January 10, 2025 Aura Kay RN Other Provider Active Start: [facility] 2024 End: January 10, 2025 Winsome Goff MD Other Provider Active Start: [facility] 2024 End: January 10, 2025 CHARLENE Joyner Other Provider Active Start: December 27, 2024 End: January 10, 2025 Zahida Flowers MD Other Provider Active Start: [facility] 2024 End: January 10, 2025 Kaitlynn Emanuel MD Other Provider Active Start: [facility] 2024 End: January 10, 2025 Ramesh Rascon MD Other Provider Active Start : December 27, 2024 End: January 10, 2025 Jerry Velasquez APRN Other Provider Active St art: December 27, 2024 End: January 10, 2025 Son Nicole MD Other Provider Active Start: [facility] 2024 End: January 10, 2025 Erica Tian DO Other Provider Active Start: December 27, 2024 End: January 10, 2025 Gilles Kirkland APRN Other Provider Active Sta rt: December 27, 2024 End: January 10, 2025 Team Status: Active Member Role Status Dates Yas Linda DO Primary Care Provider Active Start: December 28, 2024 Sotero Black MD Admit Provider, Othe r Provider Active Start: December 28, 2024 Noemy Bates , CAROL Other Provider Active Star t: December 28, 2024 Carolynn Jacobs , CAROL Other Provider Active Start : December 28, 2024 Gretel Kirkland RN Other Provider Active Star t: December 28, 2024 Merissa Balbuena , CAROL Other Provider Active Start: [facility] 2024 Pati rBice RN Other Provider Active Start: [facility] 2024 Vicky Jasso MD Other Provider Active Start: December 28, 2024 Kofi Bustamante DO Other Provider Active Start : December 28, 2024 Mario Salazar MD Other Provider Active Start : December 28, 2024 Rachid Adhikari , Other Provider Active Start: December 28, 2024 Yassine De León MD Other Provider Active Start: December 28, 2024 Sudha Sood MD Other Provider Active Start : December 28, 2024 Micah Curry DO Other Provider Active St art: December 28, 2024 Nav Peterson MD Other Provider Active Start: [facility] 2024 Zoie Field APRN Other Provider Active Start: December 28, 2024 Jaye Jorgensen MD Other Provider Active Start: December 28, 2024 Augustine Bishop MD Other Provider Active Start: [facility] 2024 Jan Prasad MD Other Provider Active Start: December 28, 2024 Shannan Valentin MD Other Provider Active Start: December 28, 2024 Micah Lyn DO Other Provider Active Start: December 28, 2024 Elliott Cole MD Other Provider Active Start: [facility] 2024 Yaron Devi MD Other Provider Active Start: [facility] 2024 Candi Stone NP-C Other Provider Active St art: December 28, 2024 Matthew Grey APRN Other Provider Active Star t: December 28, 2024 Kuldeep See MD Other Provider Active Start: December 28, 2024 Kings Goncalves MD Other Provider Active Start: [facility] 2024 Eloy Resendiz MD Other Provider Active Start: [facility] 2024 Jon Cowan MD Other Provider Active Star t: December 28, 2024 Elias Fermin MD Other Provider Active Start: [facility] 2024 Mirian Calvo DO Other Provider Active Start: [facility] 2024 Vish Bajwa DO Other Provider Active Start : December 28, 2024 Krysten Mcclelland APRN Other Provider Active Start: December 28, 2024 Emile Reynolds DO Other Provider Active Start: December 28, 2024 Carole Burden MD Other Provider Active Sta rt: December 28, 2024 Siobhan Zhong APRN Other Provider Active Start : December 28, 2024 Aislinn Maria APRN Other Provider Active St art: December 28, 2024 Los Calderon MD Other Provider Active Start: [facility] 2024 Live Grajeda MD Other Provider Active S tart: December 28, 2024 Doron Diaz , DO Other Provider Active Star t: December 28, 2024 Kia Garg , Other Provider Active Start: December 28, 2024 Wolfgang Resendiz MD Other Provider Active Start: December 28, 2024 India Haley MD Other Provider Active Start: December 28, 025 Lisa Sotelo APRN Other Provider Active Star t: December 28, 2024 Magnolia Pierce MD Other Provider Active Start: [facility] 2024 Laurent Jain MD Other Provider Active Start: [facility] 2024 Sotero Mjiares MD Other Provider Active Start: December 28, 2024 Nav Harmon MD Other Provider Active Start : December 28, 2024 Dano Monson MD Other Provider Active Start: [facility] 2024 Aria Schaffer APRN Other Provider Active Sta rt: December 28, 2024 Alvina Ch APRN Other Provider Active Start: December 28 Aura Kay RN Other Provider Active Start: [facility] 2024 Winsome Goff MD Other Provider Active Start: [facility] 2024 CHARLENE Joyner Other Provider Active Start: December 28, 2024 Zahida Flowers MD Attending Provider, Other Provider Active Start: December 28, 2024 Kaitlynn Emanuel MD Other Provider Active Start: [facility] 2024 Team Status: Active Member Role Status Dates Yas Linda DO Primary Care Provider Active Start: December 28, 2024 Sotero Black MD Admit Provider, Atte nding Provider, Other Provider Active Start: December 28, 2024 Noemy Bates RN Other Provider Active Star t: December 28, 2024 Carolynn Jacobs RN Other Provider Active Start : December 28, 2024 Gretel Kirkland RN Other Provider Active Star t: December 28, 2024 Merissa Balbuena RN Other Provider Active Start: [facility] 2024 Pati Brice RN Other Provider Active Start: [facility] 2024 Vicky Jasso MD Other Provider Active Start: December 28, 2024 Kofi Bustamante DO Other Provider Active Start : December 28, 2024 Mario Salazar MD Other Provider Active Start : December 28, 2024 Rachid Adhikari DO Other Provider Active Start: December 28, 2024 Yassine De León MD Other Provider Active Start: December 28, 2024 Sudha Sood MD Other Provider Active Start : December 28, 2024 Micah Curry DO Other Provider Active St art: December 28, 2024 Nav Peterson MD Other Provider Active Start: [facility] 2024 Zoie Field APRN Other Provider Active Start: December 28, 2024 Jaye Jorgensen MD Other Provider Active Start: December 28, 2024 Augustine Bishop MD Other Provider Active Start: [facility] 2024 Jan Prasad MD Other Provider Active Start: December 28, 2024 Shannan Valentin MD Other Provider Active Start: December 28, 2024 Micah Lyn DO Other Provider Active Start: December 28, 2024 Elliott Cole MD Other Provider Active Start: [facility] 2024 Yaron Devi MD Other Provider Active Start: [facility] 2024 Candi Stone TRAFFIC LAW ATTORNEY-C Other Provider Active St art: December 28, 2024 Matthew Grey APRN Other Provider Active Star t: December 28, 2024 Kuldeep See MD Other Provider Active Start: December 28, 2024 Kings Goncalves MD Other Provider Active Start: [facility] 2024 Eloy Resendiz MD Other Provider Active Start: [facility] 2024 Jon Cowan MD Other Provider Active Star t: December 28, 2024 Elias Fermin MD Other Provider Active Start: [facility] 2024 Mirian Calvo DO Other Provider Active Start: [facility] 2024 Vish Bajwa , Other Provider Active Start : December 28, 2024 Krysten Mcclelland APRN Other Provider Active Start: December 28, 2024 Emile Reynolds , Other Provider Active Start: December 28, 2024 Carole Burden MD Other Provider Active Sta rt: December 28, 2024 Siobhan Zhong APRN Other Provider Active Start : December 28, 2024 Aislinn Maria APRN Other Provider Active St art: December 28, 2024 Los Calderon MD Other Provider Active Start: [facility] 2024 Live Grajeda MD Other Provider Active S tart: December 28, 2024 Doron Diaz , DO Other Provider Active Star t: December 28, 2024 Kia Garg , Other Provider Active Start: December 28, 2024 Wolfgang Resnediz MD Other Provider Active Start: December 28, 2024 India Haley MD Other Provider Active Start: December 28 025 Lisa Sotelo APRN Other Provider Active Star t: December 28, 2024 Magnolia Pierce MD Other Provider Active Start: [facility] 2024 Laurent Jain MD Other Provider Active Start: [facility] 2024 Sotero Mijares MD Other Provider Active Start: December 28, 2024 Nav Harmon MD Other Provider Active Start : December 28, 2024 Dano Monson MD Other Provider Active Start: [facility] 2024 Aria Schaffer APRN Other Provider Active Sta rt: December 28, 2024 Alvina Ch APRN Other Provider Active Start: December 28 025 Aura Kay RN Other Provider Active Start: [facility] 2024 Winsome Goff MD Other Provider Active Start: [facility] 2024 CHARLENE Joyner Other Provider Active Start: December 28, 2024 Zahida Flowers MD Other Provider Active Start: [facility] 2024 Kaitlynn Emanuel MD Other Provider Active Start: [facility] 2024 Team Status: Active Member Role Status Dates Yas Linda , Primary Care Provider Active Start: January 03, 2025 Sotero Black MD Admit Provider, Othe r Provider Active Start: January 03, 2025 Noemy Bates , CAROL Other Provider Active Star t: January 03, 2025 Carolynn Jacobs , CAROL Other Provider Active Start : January 03, 2025 Gretel Kirkland , CAROL Other Provider Active Star t: January 03, 2025 Merissa Balbuena , CAROL Other Provider Active Start: [facility] 2024 Pati Brice RN Other Provider Active Start: [facility] 2024 Vicky Jasso MD Other Provider Active Start: January 03, 2025 Kofi Bustamante DO Other Provider Active Start : January 03, 2025 Mario Salazar MD Other Provider Active Start : January 03, 2025 Rachid Adhikari DO Other Provider Active Start: January 03, 2025 Yassine De León MD Other Provider Active Start: January 03, 2025 Sudha Sood MD Other Provider Active Start : January 03, 2025 Micah Curry DO Other Provider Active St art: January 03, 2025 Nav Peterson MD Other Provider Active Start: [facility] 2024 Zoie Field APRN Other Provider Active Start: January 03, 2025 Jaye Jorgensen MD Other Provider Active Start: January 03, 2025 Augustine Bishop MD Other Provider Active Start: [facility] 2024 Jan Prasad MD Other Provider Active Start: January 03, 2025 Shannan Valentin MD Other Provider Active Start: January 03, 2025 Micah Lyn DO Other Provider Active Start: January 03, 2025 Elliott Cole MD Other Provider Active Start: [facility] 2024 Yaron Devi MD Other Provider Active Start: Dec 2024 CHARLENE Knox Other Provider Active St art: January 03, 2025 Matthew Grey APRN Other Provider Active Star t: January 03, 2025 Kuldeep See MD Other Provider Active Start: January 03, 2025 Kings Goncalves MD Other Provider Active Start: [facility] 2024 Eloy Resendiz MD Other Provider Active Start: [facility] 2024 Jon Cowan MD Other Provider Active Star t: January 03, 2025 Elias Fermin MD Other Provider Active Start: [facility] 2024 Mirian Calvo , Other Provider Active Start: [facility] 2024 Vish Bajwa , Other Provider Active Start : January 03, 2025 Krysten Mcclelland APRN Other Provider Active Start: January 03, 2025 Emile Reynolds , Other Provider Active Start: January 03, 2025 Carole Burden MD Other Provider Active Sta rt: January 03, 2025 Siobhan Zhong APRN Other Provider Active Start : January 03, 2025 Aislinn Maria APRN Other Provider Active St art: January 03, 2025 Los Calderon MD Other Provider Active Start: [facility] 2024 Live Grajeda MD Other Provider Active S tart: January 03, 2025 Doron Diaz , DO Other Provider Active Star t: January 03, 2025 Kia Garg , Other Provider Active Start: January 03, 2025 Wolfgang Resendiz MD Other Provider Active Start: January 03, 2025 India Haley MD Other Provider Active Start: January 03 025 Lisa Sotelo APRN Other Provider Active Star t: January 03, 2025 Magnolia Pierce MD Other Provider Active Start: [facility] 2024 Laurent Jain MD Other Provider Active Start: [facility] 2024 Sotero Mijares MD Other Provider Active Start: January 03, 2025 Nav Harmon MD Other Provider Active Start : January 03, 2025 Dano Monson MD Other Provider Active Start: [facility] 2024 Aria Schaffer TRANSPORT TECHNICIAN Other Provider Active Sta rt: January 03, 2025 Alvina Ch APRN Other Provider Active Start: January 03 025 Aura Kay RN Other Provider Active Start: [facility] 2024 Winsome Goff MD Other Provider Active Start: [facility] 2024 CHARLENE Joyner Other Provider Active Start: January 03, 2025 Zahida Flowers MD Other Provider Active Start: [facility] 2024 Kaitlynn Emanuel MD Other Provider Active Start: [facility] 2024 Ramesh Rascon MD Other Provider Active Start : January 03, 2025 Jerry Velasquez APRN Other Provider Active St art: January 03, 2025 Son Nicole MD Attending Provider, Other Provider Active Start: January 03, 2025 Erica Tian , DO Other Provider Active Start: January 03, 2025 Gilles Kirkland APRN Other Provider Active Sta rt: January 03, 2025 Team Status: Active Member Role Status Michelle Linda DO Primary Care Provider Active Start: January 04, 2025 Sotero Black MD Admit Provider, Othe r Provider Active Start: January 04, 2025 Noemy Bates , CAROL Other Provider Active Star t: January 04, 2025 Carolynn Jacobs , CAROL Other Provider Active Start : January 04, 2025 Gretel Kirkland , CAROL Other Provider Active Star t: January 04, 2025 Merissa Balbuena , CAROL Other Provider Active Start: [facility] 2024 Pati Brice RN Other Provider Active Start: [facility] 2024 Vicky Jasso MD Other Provider Active Start: January 04, 2025 Kofi Bustamante , Other Provider Active Start : January 04, 2025 Mario Salazar MD Other Provider Active Start : January 04, 2025 Rachid Adhikari DO Other Provider Active Start: January 04, 2025 Yassine De León MD Other Provider Active Start: January 04, 2025 Sudha Sood MD Other Provider Active Start : January 04, 2025 Micah Curry DO Other Provider Active St art: January 04, 2025 Nav Peterson MD Other Provider Active Start: [facility] 2024 Zoie Field APRN Other Provider Active Start: January 04, 2025 Jaye Jorgensen MD Other Provider Active Start: January 04, 2025 Augustine Bishop MD Other Provider Active Start: [facility] 2024 Jan Prasad MD Other Provider Active Start: January 04, 2025 Shannan Valentin MD Other Provider Active Start: January 04, 2025 Micah Lyn DO Other Provider Active Start: January 04, 2025 Elliott Cole MD Other Provider Active Start: [facility] 2024 Yaron Devi MD Other Provider Active Start: [facility] 2024 Candi Stone , TRAFFIC LAW ATTORNEY-C Other Provider Active St art: January 04, 2025 Matthew Grey APRN Other Provider Active Star t: January 04, 2025 Kuldeep See MD Other Provider Active Start: January 04, 2025 Kings Goncalves MD Other Provider Active Start: [facility] 2024 Eloy Resendiz MD Other Provider Active Start: [facility] 2024 Jon Cowan MD Other Provider Active Star t: January 04, 2025 Elias Fermin MD Other Provider Active Start: [facility] 2024 Mirian Calvo , Other Provider Active Start: [facility] 2024 Vish Bajwa , Other Provider Active Start : January 04, 2025 Krysten Mcclelland APRN Other Provider Active Start: January 04, 2025 Emile Reynolds DO Other Provider Active Start: January 04, 2025 Carole Burden MD Other Provider Active Sta rt: January 04, 2025 Siobhan Zhong APRN Other Provider Active Start : January 04, 2025 Aislinn Maria APRN Other Provider Active St art: January 04, 2025 Los Calderon MD Other Provider Active Start: [facility] 2024 Live Grajeda MD Other Provider Active S tart: January 04, 2025 Doron Diaz , Other Provider Active Star t: January 04, 2025 Kia Garg , Other Provider Active Start: January 04, 2025 Wolfgang Resendiz MD Other Provider Active Start: January 04, 2025 India Haley MD Other Provider Active Start: January 04 Lisa Sotelo APRN Other Provider Active Star t: January 04, 2025 Magnolia Pierce MD Other Provider Active Start: [facility] 2024 Laurent Jain MD Other Provider Active Start: [facility] 2024 Sotero Mijares MD Other Provider Active Start: January 04, 2025 Nav Harmon MD Other Provider Active Start : January 04, 2025 Dano Monson MD Other Provider Active Start: [facility] 2024 Aria Schaffer APRN Other Provider Active Sta rt: January 04, 2025 Alvina Ch APRN Other Provider Active Start: January 04 Aura Kay RN Other Provider Active Start: [facility] 2024 Winsome Goff MD Attending Provider, Other Provider Active Start: January 04, 2025 CHARLENE Joyner Other Provider Active Start: January 04, 2025 Zahida Flowers MD Other Provider Active Start: [facility] 2024 Kaitlynn Emanuel MD Other Provider Active Start: [facility] 2024 Ramesh Rascon MD Other Provider Active Start : January 04, 2025 Jerry Velasquez APRN Other Provider Active St art: January 04, 2025 Son Nicole MD Other Provider Active Start: [facility] 2024 Erica Tian DO Other Provider Active Start: January 04, 2025 Gilles Kirkland APRN Other Provider Active Sta rt: January 04, 2025 Team Status: Active Member Role Status Michelle Linda DO Primary Care Provider Active Start: January 06, 2025 Sotero Black MD Admit Provider, Othe r Provider Active Start: January 06, 2025 Noemy Bates , CAROL Other Provider Active Star t: January 06, 2025 Carolynn Jacobs , CAROL Other Provider Active Start : January 06, 2025 Gretel Kirkland , CAROL Other Provider Active Star t: January 06, 2025 Merissa Balbuena , CARLO Other Provider Active Start: [facility] 2024 Pati Brice , CAROL Other Provider Active Start: [facility] 2024 Vicky Jasso MD Other Provider Active Start: January 06, 2025 Kofi Bustamante DO Other Provider Active Start : January 06, 2025 Mario Salazar MD Other Provider Active Start : January 06, 2025 Rachid Adhikari DO Other Provider Active Start: January 06, 2025 Yassine De León MD Other Provider Active Start: January 06, 2025 Sudha Sood MD Other Provider Active Start : January 06, 2025 Micah Curry DO Other Provider Active St art: January 06, 2025 Nav Peterson MD Other Provider Active Start: [facility] 2024 Zoie Field APRN Other Provider Active Start: January 06, 2025 Jaye Jorgensen MD Other Provider Active Start: January 06, 2025 Augustine Bishop MD Other Provider Active Start: [facility] 2024 Jan Prasad MD Other Provider Active Start: January 06, 2025 Shannan Valentin MD Other Provider Active Start: January 06, 2025 Micah Lny DO Other Provider Active Start: January 06, 2025 Elliott Cole MD Other Provider Active Start: [facility] 2024 Yaron Devi MD Other Provider Active Start: [facility] 2024 Candi Stone NP-C Other Provider Active St art: January 06, 2025 Matthew Grey APRN Other Provider Active Star t: January 06, 2025 Kuldeep See MD Other Provider Active Start: January 06, 2025 Kings Goncalves MD Other Provider Active Start: [facility] 2024 Eloy Resendiz MD Other Provider Active Start: [facility] 2024 Jon Cowan MD Other Provider Active Star t: January 06, 2025 Elias Fermin MD Other Provider Active Start: [facility] 2024 Mirian Calvo DO Other Provider Active Start: [facility] 2024 Vish Bajwa DO Other Provider Active Start : January 06, 2025 Krysten Mcclelland APRN Other Provider Active Start: January 06, 2025 Emile Reynolds DO Other Provider Active Start: January 06, 2025 Carole Burden MD Other Provider Active Sta rt: January 06, 2025 Siobhan Zhong APRN Other Provider Active Start : January 06, 2025 Aislinn Maria APRN Other Provider Active St art: January 06, 2025 Los Calderon MD Other Provider Active Start: [facility] 2024 Live Grajeda MD Other Provider Active S tart: January 06, 2025 Doron Diaz , DO Other Provider Active Star t: January 06, 2025 Kia Garg DO Other Provider Active Start: January 06, 2025 Wolfgang Resendiz MD Other Provider Active Start: January 06, 2025 India Haley MD Other Provider Active Start: January 06 Lisa Sotelo APRN Other Provider Active Star t: January 06, 2025 Magnolia Pierce MD Other Provider Active Start: [facility] 2024 Laurent Jain MD Other Provider Active Start: [facility] 2024 Sotero Mijares MD Other Provider Active Start: January 06, 2025 Nav Harmon MD Other Provider Active Start : January 06, 2025 Dano Monson MD Other Provider Active Start: [facility] 2024 Aria Schaffer APRN Other Provider Active Sta rt: January 06, 2025 Alvina Ch APRN Other Provider Active Start: January 06 Aura Kay RN Other Provider Active Start: [facility] 2024 Winsome Goff MD Other Provider Active Start: [facility] 2024 CHARLENE Joyner Other Provider Active Start: January 06, 2025 Zahida Flowers MD Other Provider Active Start: [facility] 2024 Kaitlynn Emanuel MD Other Provider Active Start: [facility] 2024 Ramesh Rascon MD Other Provider Active Start : January 06, 2025 Jerry Velasquez APRN Other Provider Active St art: January 06, 2025 Son Nicole MD Other Provider Active Start: [facility] 2024 Erica Tian DO Other Provider Active Start: January 06, 2025 Gilles Kirkland APRN Other Provider Active Sta rt: January 06, 2025 Brenda Driscoll APRN Attending Provider Active Start: January 06, 2025 Team Status: Active Member Role Status Dates Yas Linda DO Primary Care Provider Active Start: January 10, 2025 Erica Dalton CMA Attending Provider Active Start: January 10, 2025 Team Status: Inactive Member Role Status Dates Walker Soria MD Attending Provider Active Star t: January 14, 2025 End: January 14, 2025 Yas Linda DO Primary Care Provider Active Start: January 14, 2025 End: January 14, 2025 Team Status: Inactive Member Role Status Dates Yas Linda DO Primary Care Provider Active Start: January 14, 2025 End: January 14, 2025 Walker Soria MD Attending Provider Active Star t: January 14, 2025 End: January 14, 2025 Team Status: Inactive Member Role Status Dates Sotero Black MD Attending Provider Active Star t: January 16, 2025 End: January 16, 2025 PHYSICIAN NO FAMILY Primary Care Provider Active Start: January 16, 2025 End: January 16, 2025 Team Status: Inactive Member Role Status Dates Zahida Flowers MD Attending Provider Active Start : January 20, 2025 End: January 20, 2025 Yas Linda DO Primary Care Provider Active Start: January 20, 2025 End: January 20, 2025 Team Status: Inactive Member Role Status Dates Yas Linda DO Primary Care Provide r, Attending Provider Active Start: January 28, 2025 End: January 28, 2025 Team Status: Active Member Role Status Dates Yas Linda DO Primary Care Provide r, Attending Provider Active Start: February 20, 2025 Team Status: Active Member Role Status Dates Yas Linda DO Primary Care Provider Active Start: February 24, 2025 Kalia Sánchez MD Referring Provider Active Sta rt: February 24, 2025 Chivo Keller II, DO Attending Provider Active Start: February 24, 2025 Team Status: Active Member Role Status Dates Walker oSria MD Attending Provider Active Star t: February 25, 2025 Yas Linda DO Primary Care Provider Active Start: February 25, 2025 Team Status: Active Member Role Status Michelle Linda DO Primary Care Provide r, Attending Provider Active Start: February 01, 2024 Team Status: Active Member Role Status Michelle Linda DO Primary Care Provider Active Start: March 01, 2024 Kalia Sánchez MD Referring Provider Active Sta rt: March 01, 2024 Chivo Keller II, DO Attending Provider Active Start: March 01, 2024 Team Status: Inactive Member Role Status Dates Yas Ball , DO Primary Care Provider Active Start: March 01, 2024 End: March 01, 2024 Chivo Keller II, DO Attending Provider Active Start: March 01, 2024 End: March 01, 2024 Team Status: Inactive Member Role Status Dates Yas Linda , DO Primary Care Provide r, Attending Provider Active Start: April 22, 2024 End: April 22, 2024 Team Status: Inactive Member Role Status Dates Yas Linda , DO Primary Care Provide r, Attending Provider Active Start: December 18, 2023 End: December 18, 2023 Team Status: Active Member Role Status Dates Yas Linda , DO Primary Care Provide r, Attending Provider Active Start: December 19, 2023 Team Status: Active Member Role Status Dates Yas Linda , DO Primary Care Provider Active Kalia Sánchez MD Referring Provider Active Chivo Keller II, DO Attending Provider Active Team Status: Inactive Member Role Status Dates Yas Linda , DO Primary Care Provider Active Danuta Kelly NP-C Attending Provider Jesus e Team Status: Inactive Member Role Status Dates Yas Linda , DO Primary Care Provider Active Ramesh Rascon MD Attending Provider Active Shallot Packer Relationship Specialty Start Date End Date Yas Linda MD [address] [place] [address] PCP - General Internal Medicine 08/24/23 Shallot Packer Relationship Specialty Start Date End Date Yas Linda MD [address] [place] [address] PCP - General Internal Medicine 08/24/23 Shallot Packer Relationship Specialty Start Date End Date Yas Linda MD [address] [place] [address] PCP - General Internal Medicine 08/24/23 Shallot Packer Relationship Specialty Start Date End Date Yas Linda DO [address] [place] [address] PCP - General Internal Medicine 11/11/21 Shallot Packer Relationship Specialty Start Date End Date Yas Linda DO [address] [place] [address] PCP - General Internal Medicine 11/11/21 Shallot Packer Relationship Specialty Start Date End Date Yas Linda DO [address] [place] [address] PCP - General Internal Medicine 11/11/21 Shallot Packer Relationship Specialty Start Date End Date Yas Linda DO PCP - General Internal Medicine 11/11/21 Team Status: Active Member Role Status Dates Yas Linda DO Primary Care Provider Active Start: October 11, 2024 Trang Degroot MD Attending Provider Active Start : October 11, 2024 Team Status: Active Member Role Status Dates Yas Linda DO Primary Care Provide r, Attending Provider Active Start: November 07, 2024 Team Status: Active Member Role Status Dates Yas Linda DO Primary Care Provider Active Start: December 27, 2024 Sotero Black MD Admit Provider, Attending Provider A ctive Start: December 27, 2024 Team Status: Active Member Role Status Dates Yas Linda DO Primary Care Provider Active Start: December 30, 2024 Sotero Black MD Admit Provider, Atte nding Provider, Other Provider Active Start: December 30, 2024 Noemy Bates , CAROL Other Provider Active Star t: December 30, 2024 Carolynn Jacobs , CAROL Other Provider Active Start : December 30, 2024 Gretel Kirkland , CAROL Other Provider Active Star t: December 30, 2024 Merissa Balbuena , CAROL Other Provider Active Start: [facility] 2024 Pati Brice , CAROL Other Provider Active Start: [facility] 2024 Vicky Jasso MD Other Provider Active Start: December 30, 2024 Kofi Bustamante DO Other Provider Active Start : December 30, 2024 Mario Salazar MD Other Provider Active Start : December 30, 2024 Rachid Adhikari DO Other Provider Active Start: December 30, 2024 Yassine De León MD Other Provider Active Start: December 30, 2024 Sudha Sood MD Other Provider Active Start : December 30, 2024 Micah Curry DO Other Provider Active St art: December 30, 2024 Nav Peterson MD Other Provider Active Start: [facility] 2024 Zoie Field APRN Other Provider Active Start: December 30, 2024 Jaye Jorgensen MD Other Provider Active Start: December 30, 2024 Augustine Bishop MD Other Provider Active Start: [facility] 2024 Jan Prasad MD Other Provider Active Start: December 30, 2024 Shannan Valentin MD Other Provider Active Start: December 30, 2024 Micah Lyn DO Other Provider Active Start: December 30, 2024 Elliott Cole MD Other Provider Active Start: [facility] 2024 Yaron Devi MD Other Provider Active Start: [facility] 2024 Candi Stone NP-C Other Provider Active St art: December 30, 2024 Matthew Grey APRN Other Provider Active Star t: December 30, 2024 Kuldeep See MD Other Provider Active Start: December 30, 2024 Kings Goncalves MD Other Provider Active Start: [facility] 2024 Eloy Resendiz MD Other Provider Active Start: [facility] 2024 Jon Cowan MD Other Provider Active Star t: December 30, 2024 Elias Fermin MD Other Provider Active Start: [facility] 2024 Mirian Calvo DO Other Provider Active Start: [facility] 2024 Vish Bajwa DO Other Provider Active Start : December 30, 2024 Krysten Mcclelland APRN Other Provider Active Start: December 30, 2024 Emile Reynolds DO Other Provider Active Start: December 30, 2024 Carole Burden MD Other Provider Active Sta rt: December 30, 2024 Siobhan Zhong APRN Other Provider Active Start : December 30, 2024 Aislinn Maria APRN Other Provider Active St art: December 30, 2024 Los Calderon MD Other Provider Active Start: [facility] 2024 Live Grajeda MD Other Provider Active S tart: December 30, 2024 Doron Diaz , Other Provider Active Star t: December 30, 2024 Kia Garg DO Other Provider Active Start: December 30, 2024 Wolfgang Resendiz MD Other Provider Active Start: December 30, 2024 India Haley MD Other Provider Active Start: December 30 025 Lisa Sotelo APRN Other Provider Active Star t: December 30, 2024 Magnolia Pierce MD Other Provider Active Start: [facility] 2024 Laurent Jain MD Other Provider Active Start: [facility] 2024 Sotero Mijares MD Other Provider Active Start: December 30, 2024 Nav Harmon MD Other Provider Active Start : December 30, 2024 Dano Monson MD Other Provider Active Start: [facility] 2024 Aria Schaffer APRN Other Provider Active Sta rt: December 30, 2024 Alvina Ch APRN Other Provider Active Start: December 30 Aura Kay RN Other Provider Active Start: [facility] 2024 Winsome Goff MD Other Provider Active Start: [facility] 2024 CHARLENE Joyner Other Provider Active Start: December 30, 2024 Zahida Flowers MD Other Provider Active Start: [facility] 2024 Kaitlynn Emanuel MD Other Provider Active Start: [facility] 2024 Team Status: Active Member Role Status Dates Walker Soria MD Attending Provider Active Star t: January 14, 2025 Yas Linda DO Primary Care Provider Active Start: January 14, 2025 Team Status: Inactive Member Role Status Dates Sotero Black MD Attending Provider Active Star t: January 16, 2025 End: January 16, 2025 Shallot Packer Relationship Specialty Start Date End Date Yas Linda DO PCP - General Internal Medicine 11/11/21 Shallot Packer Relationship Specialty Start Date End Date Yas Linda DO [address] [facility] [place] [address] PCP - General Internal Medicine 02/18/25 Shallot Packer Relationship Specialty Start Date End Date Yas Linda DO [address] [facility] [place] [address] PCP - General Internal Medicine 02/18/25 Shallot Packer Relationship Specialty Start Date End Date Yas Linda DO [address] [facility] [place] [address] PCP - General Internal Medicine 02/18/25 Shallot Packer Relationship Specialty Start Date End Date Yas Linda DO [address] [facility] [place] [address] PCP - General Internal Medicine 02/18/25 Shallot Packer Relationship Specialty Start Date End Date Yas Linda DO [address] [facility] [place] [address] PCP - General Internal Medicine 02/18/25 Shallot Packer Relationship Specialty Start Date End Date Yas Linda DO [address] [facility] [place] [address] PCP - General Internal Medicine 02/18/25 Shallot Packer Relationship Specialty Start Date End Date Yas Linda DO [address] [facility] [place] [address] PCP - General Internal Medicine 02/18/25 Shallot Packer Relationship Specialty Start Date End Date Yas Linda DO [address] [facility] [place] [address] PCP - General Internal Medicine 02/18/25 Shallot Packer Relationship Specialty Start Date End Date Yas Linda DO [address] [place] [address] PCP - General Internal Medicine 02/18/25 Team Status: Inactive Member Role Status Dates Yas Linda DO Primary Care Provide r, Attending Provider Active Start: March 25, 2025 End: March 25, 2025 Shallot Packer Relationship Specialty Start Date End Date Yas Linda DO [address] [place] [phone] PCP - General Internal Medicine 02/18/25 Shallot Packer Relationship Specialty Start Date End Date Yas Linda DO [address] [place] [phone] PCP - General Internal Medicine 02/18/25 Shallot Packer Relationship Specialty Start Date End Date Yas Linda DO [address] [place] [id number] PCP - General Internal Medicine 02/18/25 Shallot Packer Relationship Specialty Start Date End Date Yas Linda DO [address] [place] [address] PCP - General Internal Medicine 02/18/25 Shallot Packer Relationship Specialty Start Date End Date Yas Linda DO [address] [place] [address] PCP - General Internal Medicine 02/18/25 Shallot Packer Relationship Specialty Start Date End Date Yas Linda DO [address] [place] [address] PCP - General Internal Medicine 02/18/25 Shallot Packer Relationship Specialty Start Date End Date Yas Linda DO [address] [facility] [place] [address] PCP - General Internal Medicine 02/18/25 Shallot Packer Relationship Specialty Start Date End Date Yas Linda DO [address] [facility] [place] [address] PCP - General Internal Medicine 02/18/25 Shallot Packer Relationship Specialty Start Date End Date Yas Linda DO [address] [facility] [place] [address] PCP - General Internal Medicine 02/18/25 Shallot Packer Relationship Specialty Start Date End Date Yas Linda DO [address] [facility] [place] [address] PCP - General Internal Medicine 02/18/25 Team Status: Inactive Member Role Status Dates Yas Linda DO Primary Care Provider Active Start: January 28, 2025 End: January 28, 2025 Yas Linda DO Attending Provider Active Sta rt: January 28, 2025 End: January 28, 2025 Shallot Packer Relationship Specialty Start Date End Date Yas Linda DO [address] [facility] [place] [address] PCP - General Internal Medicine 02/18/25 Shallot Packer Relationship Specialty Start Date End Date Yas Linda DO [address] [facility] [place] [address] PCP - General Internal Medicine 02/18/25 Shallot Packer Relationship Specialty Start Date End Date Yas Linda DO [address] [place] [facility] [address] PCP - General Internal Medicine 02/18/25 Shallot Packer Relationship Specialty Start Date End Date Yas Linda DO [address] [place] [facility] [address] PCP - General Internal Medicine 02/18/25 Shallot Packer Relationship Specialty Start Date End Date Yas Linda DO [address] [place] [facility] [address] PCP - General Internal Medicine 02/18/25 Shallot Packer Relationship Specialty Start Date End Date Yas Linda DO [address] [place] [facility] [address] PCP - General Internal Medicine 02/18/25 Shallot Packer Relationship Specialty Start Date End Date Yas Linda DO [address] [place] [facility] [address] PCP - General Internal Medicine 02/18/25 Shallot Packer Relationship Specialty Start Date End Date Yas Linda DO [address] [place] [facility] [address] PCP - General Internal Medicine 02/18/25 Shallot Packer Relationship Specialty Start Date End Date Yas Linda DO [address] [place] [facility] [address] PCP - General Internal Medicine 02/18/25 Shallot Packer Relationship Specialty Start Date End Date Yas Linda DO [address] [place] [address] PCP - General Internal Medicine 02/18/25 Shallot Packer Relationship Specialty Start Date End Date Yas Linda DO [address] [facility] [place] [address] PCP - General Internal Medicine 02/18/25 Shallot Packer Relationship Specialty Start Date End Date Yas Linda DO [address] [facility] [place] [address] PCP - General Internal Medicine 02/18/25 Shallot Packer Relationship Specialty Start Date End Date Yas Linda, DO [address] [facility] [place] [address] PCP - General Internal Medicine 02/18/25 Shallot Packer Relationship Specialty Start Date End Date Yas Linda DO [address] [facility] [place] [address] PCP - General Internal Medicine 02/18/25 Goals (unrecognized section and content) Goals may [...] this encounterNot on filedocumented as of this encounterGoals may be documented in an alternate sectionNot on filedocumented as of this encounterGoals may be documented in an alternate sectionGoals may be documented in an alternate sectionGoals may be documented in an alternate section REASON FOR VISIT (unrecogniz ed section and content) Reason Comments DM Foot Care Pt is here today req uesting nail careBS: 117 A1C: ?LV Dr. Linda 05-05-2025SS: 11-12 Reason Comments DM Foot Care Delano Ren 84yo Ne w Patient present for diabetic nail care. Patient states it is difficult for him to reach his nail to trim. Patient relates his Diabetes is diet controlled at this time. A1C 6.[address] Linda 01/30/2025. SS 12.5 Reason Comments Sleep Apnea Thyroid resultsRepeat lab [...] BE BASED ON THE PRIMARY CLINICAL RECORDS. [employer] provides no warranty or guarantee of the accuracy or completeness of information in this document.
[2025-07-01 11:26] LABS: Thyroid Stimulating Hormone 12.678 uIU/mL (0.358-3.740)
== END 2025-07-01 09:44 | disposition home or self-care (01) ==
LOC: LAB 09:46
PROVIDERS: PCP Internal Medicine; Visit Provider Internal Medicine
DX: E05.90 Thyrotoxicosis, unspecified without thyrotoxic crisis or storm (principal); Z79.899 Other long term (current) drug therapy
CPT/HCPCS: 36415; 84439; 84443; 84480

== ENCOUNTER 2025-07-19 12:04 | Emergency (ER) | payer MEDICARE, SELFPAY ==
[2025-07-19 12:10] VITALS: BP 165/90; PULSE 74; TEMP 37.1; O2SAT 98; BMI 27.2
--- OUTSIDE RECORDS SUMMARY | 2025-07-19 12:12 | XMS_ITS | Encounter Summary ---
Author Organization [facility] Address [address] [place] [address] Care Team Providers Care Clubhouse Attendant Name Role Phone Arnie Lund DO Primary Care Provider [phone] Encounter Details Date Type Department Care Team (Late st Contact Info) Description 03/23/2025 Orders Only [facility] [address] [place] [address] Sarwat Lazo MD [address] [place] [address] Social History Tobacco Use Types [...] Care Team (Late st Contact Info) Description 09/19/2025 Hospital [facility] [address] [place] [address] Mariusz Montoya MD [address] [place] [address] Scheduled Procedures Name Priority Associated Diagnoses Date/Ti me Atrial Fib Ablation w/ PVI Paroxysmal atrial fibrillation (CMS/HCC) documented as of this encounter Procedures Procedure [...] on filedocumented in this encounter Care Teams Clubhouse Attendant Relationship Specialty Start Date End Date Arnie Lund DO [address] [place] [address] [place] [address] PCP - General 06/07/22 documented as of this encounter
--- OUTSIDE RECORDS SUMMARY | 2025-07-19 12:12 | XMS_ITS | Encounter Summary ---
Author Organization [employer] Address [id number] [address] [place] [address] Care Team Providers Care Floor Polisher Name Role Phone Arnie Lund DO Primary Care Provider [phone] Encounter Details Date Type Department Care Team (Late st Contact Info) Description 04/14/2023 Telephone [facility] [address] [place] [address] Etelvina Byrd RMA Social History Tobacco Use [...] on filedocumented in this encounter Care Teams Floor Polisher Relationship Specialty Start Date End Date Arnie Lund DO PCP - General Internal Medicine 11/11/21 documented as of this encounter
--- OUTSIDE RECORDS SUMMARY | 2025-07-19 12:12 | XMS_ITS | Encounter Summary ---
Author Organization [facility] Address [address] [place] [address] Care Team Providers Care Insole Tack Puller Hand Name Role Phone Arnie Lund DO Primary Care Provider [phone] Arnie Lund DO Primary Care Provider [phone] Encounter Details Date Type Department Care Team (Late st Contact Info) Description 01/23/2023 Abstract [facility] [address] [place] [address] Marilin Bhardwaj, [facility] [address] [facility] [place] [address] Social History Tobacco Use Types Packs/Day Years [...] Care Team (Late st Contact Info) Description 08/27/2025 9:45 AM EST Procedure Visit [facility] [address] [place] [phone] Kole Batista DPM [address] [place] [id number] documented as of this encounter Visit Diagnoses Not on filedocumented in this encounter Care Teams Insole Tack Puller Hand Relationship Specialty Start Date End Date Arnie Lund DO PCP - General Internal Medicine 08/24/23 02/17/25 Arnie Lund DO [address] [place] [address] PCP - General Internal Medicine 02/18/25 documented as of this encounter
--- OUTSIDE RECORDS SUMMARY | 2025-07-19 12:12 | XMS_ITS | Encounter Summary ---
Author Organization [employer] Address [id number] [address] [place] [address] Care Team Providers Care Global Position System Technician Name Role Phone Kevon Arnie Bel HERRMANN Primary Care Provider [phone] Reason for Visit * Reason Onset Date Comments ER 07/18/2024 Encounter Details Date Type Department Care Team (Late st Contact Info) Description 07/18/2024 Telephone [facility] [address] [place] [address] Americo Shaw MD [address] [place], [place] [phone] ER Social History Tobacco Use Types Packs/Day [...] 07/18/2024 8:13 AM EDT Patient seen in [facility] 07/17/24 for dizziness, weakness, BP 73/50, 3.5 Creatinine. Please contact patient/spouse for recommendations. Patient is feeling much better this morning. * Telephone Encounter - Michelle Bejarano LPN - 07/18/2024 8:13 AM EDT Have we received any records from [facility]? If not can you call and get them please? documented in this encounter Plan of Treatment Not on file documented as of this encounter Visit Diagnoses Not on filedocumented in this encounter Care Teams Global Position System Technician Relationship Specialty Start Date End Date Arnie Lund DO PCP - General Internal Medicine 11/11/21 documented as of this encounter
--- OUTSIDE RECORDS SUMMARY | 2025-07-19 12:12 | XMS_ITS | Encounter Summary ---
Author Organization [facility] Address [address] [place] [address] Care Team Providers Care Slot Ambassador Name Role Phone Arnie Lund DO Primary Care Provider [phone] Arnie Lund DO Primary Care Provider [phone] Encounter Details Date Type Department Care Team (Late st Contact Info) Description 02/07/2023 Abstract [facility] [address] [place] [phone] Marilin Bhardwaj, [facility] [address] [facility] [place] [address] Social History Tobacco Use Types Packs/Day Years [...] Procedure Visit [facility] [address] [place] [address] Kole Batista DPM [address] [place] [id number] documented as of this encounter Visit Diagnoses Not on filedocumented in this encounter Care Teams Slot Ambassador Relationship Specialty Start Date End Date Arnie Lund DO PCP - General Internal Medicine 08/24/23 02/17/25 Arnie Lund DO [address] [place] [address] PCP - General Internal Medicine 02/18/25 documented as of this encounter
--- OUTSIDE RECORDS SUMMARY | 2025-07-19 12:12 | XMS_ITS | Encounter Summary ---
Author Organization [facility] Address [address] [place] [address] Care Team Providers Care Bright Cutter Name Role Phone Arnie Lund DO Primary Care Provider [phone] Encounter Details Date Type Department Care Team (Late st Contact Info) Description 02/20/2025 Orders Only [facility] Cardiology [facility] [address] [place] [address] Mariusz Montoya MD [address] [place] [address] Social History Tobacco Use Types Packs/Day Years Used Date Smoking Tobacco: Former Cigarettes Q uit: 1982 Smokeless Tobacco: Never Alcohol Use Standard Drinks/Week Comments Yes 0 (1 standard drink = 0.6 oz pur e alcohol) OCCASIONAL PHQ-2 Answer Date Recorded Patient Health Questionnaire-2 Score 0 04/25/2023 MD Safety & Environment Answer Date Rec orded [...] st Contact Info) Description 09/19/2025 Hospital Encounter [facility] Vascular Lab [address] [place] [address] Mariusz Montoya MD [address] [place] [address] Scheduled Procedures Name Priority Associated Diagnoses [...] EDT) Anatomical Region Laterality Modality Other 02/20/2025 Mariusz Montoya MD CV IMPLANTABLE CARDIAC DEVICE [place] OCEDURES Final Result documented in this encounter Visit Diagnoses Not on filedocumented in this encounter Care Teams Bright Cutter Relationship Specialty Start Date End Date Arnie Lund DO [address] [place] [address] [place] [address] PCP - General 06/07/22 documented as of this encounter
--- OUTSIDE RECORDS SUMMARY | 2025-07-19 12:12 | XMS_ITS | Clinical Summary ---
Author Organization [facility] Healthcare Address [address] [place] [address] Care Team Providers Care Assessment Analyst Name Role Phone KevonArnei Bel HERRMANN Primary Care Provider [phone] Allergies No known active allergies Medications Fluticasone-Ume clidin-Vilant (Trelegy Ellipta) 200-62.5-25 MCG/ACT aerosol powder Inhale Active ezetimibe (Zetia) 10 MG tablet Take 10 mg by mouth Daily Active potassium chloride [...] furosemide (Lasix) 80 MG tablet 12/21/2024 Active Calcium Carbonate-Vitam in D (CALTRATE 600+D PO) Take by mouth Active niacin 500 MG tablet Take 500 mg by mouth in the morning. Take with meals. Active ferrous sulfate 325 (65 Fe) MG EC tablet Take 325 mg by mouth in the morning and 325 mg at noon and 325 mg in the evening. Take with meals. Do not crush, chew, or split. Active Ascorbic Acid (vitamin C) 250 MG tablet Take 250 mg by mouth Daily Active levothyroxine (Tirosint) 25 MCG capsule Take by mouth in the morning. Take before meals. Active rivaroxaban (Xarelto) 15 MG tablet Take by mouth Take with food. Active Active Problems Problem Noted Date Diagnosed Date MOLINA (obstructive sleep apnea) 07/08/2024 Hypersomnia 07/08/2024 Primary insomnia 07/08/2024 Encounters Date Type Department Care Team Description 05/30/2025 External Result Encounter [facility] External Department Unsolicited Chivo Keller, DO 05/30/2025 External Result Encounter [facility] External Department Unsolicited Chivo Keller, DO 05/30/2025 External Result Encounter [facility] External Department Unsolicited Chivo Keller, DO 05/30/2025 External Result Encounter [facility] External Department Unsolicited Chivo Keller, DO 05/26/2025 1:00 PM EDT Treatment [facility] [address] [facility] [address] [place] [address] Ronal Andrews, [place]NEE Greater trochanteric bursitis of left hip (Primary Dx); History of total hip arthroplasty, right; Left hip pain 05/26/2025 10:15 AM EDT [facility] [address] [place] [address] Kole Batista DPM Onychomycosis (Primary Dx); Onychodystrophy; Diabetic polyneuropathy associated with type 2 diabetes mellitus (HCC) 05/26/2025 Bamboo flowsheet [facility] [address] [place] [address] Kole Batista DPM 05/26/2025 Travel 05/23/2025 10:30 AM EDT Treatment [facility] [address] [facility] [address] [place] [address] Ronal Andrews, BILINGUAL BRANCH MANAGER Greater trochanteric bursitis of left hip (Primary Dx); History of total hip arthroplasty, right; Left hip pain 05/23/2025 Bamboo flowsheet [facility] [address] [place] [address] Ronal Andrews, BILINGUAL BRANCH MANAGER 05/23/2025 Travel 05/22/2025 Travel 05/21/2025 10:00 AM EDT Treatment [facility] [address] [place] [address] Ronal Andrews, BILINGUAL BRANCH MANAGER Greater trochanteric bursitis of left hip (Primary Dx); History of total hip arthroplasty, right; Left hip pain 05/21/2025 Bamboo flowsheet [facility] [address] [place] [address] Ronal Andrews, BILINGUAL BRANCH MANAGER 05/21/2025 Travel 05/19/2025 10:30 AM EDT Treatment [facility] [address] [place] [address] Roxanne Sánchez, BILINGUAL BRANCH MANAGER Greater trochanteric bursitis of left hip (Primary Dx); History of total hip arthroplasty, right; Left hip pain 05/19/2025 Bamboo flowsheet [facility] [address] [place] [address] Roxanne Sánchez, BILINGUAL BRANCH MANAGER 05/19/2025 Travel 05/16/2025 10:30 AM EDT Treatment [facility] [address] [place] [address] Ronal Andrews, BILINGUAL BRANCH MANAGER Greater trochanteric bursitis of left hip (Primary Dx); History of total hip arthroplasty, right; Left hip pain 05/16/2025 Bamboo flowsheet [facility] [address] [place] [address] Ronal Andrews, BILINGUAL BRANCH MANAGER 05/16/2025 Travel 05/14/2025 12:00 PM EDT Treatment [facility] [address] [place] [address] Ronal Andrews, BILINGUAL BRANCH MANAGER Greater trochanteric bursitis of left hip (Primary Dx); History of total hip arthroplasty, right; Left hip pain 05/14/2025 Bamboo flowsheet [facility] [address] [place] [address] Ronal Andrews, BILINGUAL BRANCH MANAGER 05/14/2025 Travel 05/12/2025 10:30 AM EDT Treatment [facility] [address] [facility] [address] [place] [address] Kelbley, Roxanne, BILINGUAL BRANCH MANAGER Greater trochanteric bursitis of left hip (Primary Dx); History of total hip arthroplasty, right; Left hip pain 05/12/2025 Bamboo flowsheet [facility] [address] [facility] [address] [place] [address] Kelbley, Roxanne, BILINGUAL BRANCH MANAGER 05/12/2025 Travel 05/09/2025 12:30 PM EDT Treatment [facility] [address] [facility] [address] [place] [address] Kelbley, Roxanne, BILINGUAL BRANCH MANAGER Greater trochanteric bursitis of left hip (Primary Dx); History of total hip arthroplasty, right; Left hip pain 05/09/2025 Bamboo flowsheet [facility] [address] [place] [address] Kelbley, Roxanne, BILINGUAL BRANCH MANAGER 05/09/2025 Travel 05/07/2025 10:00 AM EDT Treatment [facility] [address] [place] [address] Kelbley, Roxanne, BILINGUAL BRANCH MANAGER Greater trochanteric bursitis of left hip (Primary Dx); History of total hip arthroplasty, right; Left hip pain 05/07/2025 Bamboo flowsheet [facility] [address] [facility] [address] [place] [address] Nikkie Sánchezissa, BILINGUAL BRANCH MANAGER 05/07/2025 Travel 05/05/2025 12:30 PM EDT Treatment [facility] [address] [place] [address] Nikkie Sánchezissa, BILINGUAL BRANCH MANAGER Greater trochanteric bursitis of left hip (Primary Dx); History of total hip arthroplasty, right; Left hip pain 05/05/2025 Bamboo flowsheet [facility] [address] [place] [address] Nikkie Sánchezissa, BILINGUAL BRANCH MANAGER 05/05/2025 Travel 2025 10:30 AM EDT Treatment [facility] [address] [place] [address] Nikkie Sánchezissa, BILINGUAL BRANCH MANAGER Greater trochanteric bursitis of left hip (Primary Dx); History of total hip arthroplasty, right; Left hip pain 2025 Bamboo flowsheet [facility] [address] [place] [address] KelNikkie carrilloissa, BILINGUAL BRANCH MANAGER 2025 Travel 04/30/2025 10:00 AM EDT Treatment [facility] [address] [place] [address] Ronal Andrews, BILINGUAL BRANCH MANAGER Greater trochanteric bursitis of left hip (Primary Dx); History of total hip arthroplasty, right; Left hip pain 04/30/2025 Bamboo flowsheet [facility] [address] [place] [address] Ronal Andrews, BILINGUAL BRANCH MANAGER 04/30/2025 Travel 04/28/2025 10:30 AM EDT Treatment [facility] [address] [place] [address] Ronal Andrews, BILINGUAL BRANCH MANAGER Greater trochanteric bursitis of left hip (Primary Dx); History of total hip arthroplasty, right; Left hip pain 04/28/2025 Bamboo flowsheet [facility] [address] [place] [address] Jamaljagruti Ronal, BILINGUAL BRANCH MANAGER 04/28/2025 Travel 04/25/2025 10:30 AM EDT Treatment [facility] [address] [place] [address] Darryl Ronal, BILINGUAL BRANCH MANAGER Greater trochanteric bursitis of left hip (Primary Dx); History of total hip arthroplasty, right; Left hip pain 04/25/2025 Bamboo flowsheet [facility] [address] [place] [address] Darryl Ronal, BILINGUAL BRANCH MANAGER 04/25/2025 Travel 04/23/2025 12:30 PM EDT Treatment [facility] [address] [place] [address] Roxanne Sánchez, BILINGUAL BRANCH MANAGER Greater trochanteric bursitis of left hip (Primary Dx); History of total hip arthroplasty, right; Left hip pain 04/23/2025 Bamboo flowsheet [facility] [address] [place] [address] Roxanne Sánchez, BILINGUAL BRANCH MANAGER 04/23/2025 Travel 04/21/2025 12:00 PM EDT Treatment [facility] [address] [place] [address] Roxanne Sánchez, BILINGUAL BRANCH MANAGER Greater trochanteric bursitis of left hip (Primary Dx); History of total hip arthroplasty, right; Left hip pain 04/21/2025 Bamboo flowsheet [facility] [address] [facility] [address] [place] [address] Roxanne Sánchez, BILINGUAL BRANCH MANAGER 04/21/2025 Travel from Last 3 Months Immunizations Immunization [...] - - Weight 88.5 kg (195 lb) 05/26/2025 10:12 AM EDT Height 180.3 cm (5' 11 ) 05/26/2025 10:12 AM EDT Body Mass Index 27.2 05/26/2025 10:12 AM EDT Plan of Treatment Upcoming Encounters Date Type Department Care Team (Late st Contact Info) Description 08/27/2025 9:45 AM EST Procedure Visit [facility] [address] [place] [phone] Kole Batista, DPM [address] [place], [place] [phone] Health Maintenance Due Date Last Done Comments Pneumococcal Vaccine: 65+ Ye ars (2 of 2 - PPSV23) 07/16/2014 07/16/2013 Influenza Vaccine (#1) 2025 4, 07/11/2023, 07/04/2022, Additional history exists Procedures Procedure Name Priority Date/Time Associated Diagnosis Comments ERYTHROPOETIN (EPO), SERUM Routine 05/30/2025 10:59 AM EDT VIT. B12/FOLATE PROFILE Routine 08/15/20 25 10:59 AM EDT FERRITIN Routine 05/30/2025 10:59 AM EDT CARCINOEMBRYONIC ANTIGEN Routine 025 10:59 AM EDT IRON AND TOTAL IRON BINDING CAPACITY Routine 05/30/2025 10:59 AM EDT COMPREHENSIVE METABOLIC PANEL Routine 05/30/2025 10:59 AM EDT CBC WITH AUTO DIFFERENTIAL Routine 05/30/2025 10:59 AM EDT from Last 3 Months Results * ERYTHROPOETIN (EPO), SERUM (05/30/2025 10:59 AM EDT) Pathologist [facility] ERYTHROPOETIN (EPO), SERUM 22.0 2.6 - 18.5 m[iU]/mL 06/02/2025 6:08 PM EDT [facility] Comment: Cyan DxI 800 Immunoassay System Values obtained with different assay methods or kits cannot be used interchangeably. Results cannot be interpreted as absolute evidence of the presence or absence of malignant disease. Performed at: [facility] [id number] Geriatric Social Work Professor: Nathan Munoz PhD, Phone: [phone] Other Topography unknown / Unknown 05/30/2025 10:59 AM EDT 05/30/2025 10:59 AM EDT us Chivo Keller DO LAB BLOOD ORDERABLES Radha l Result [facility] [address] [place] [address], * (ABNORMAL) CARCINOEMBRYONIC ANTIGEN (05/30/2025 10:59 AM EDT) Pathologist [facility] CARCINOEMBRYONIC ANTIGEN 3.4(H) 0.0 - 3.0 ng/mL 05/30/2025 12:05 PM EDT [facility] Comment: Serial tumor marker results determined by assays using different manufacturers or methods may not be comparable. [facility] centura technical lead senior developer and method: JANICE UNICEL DXI, 2 SITE IMMUNOENZYMATIC S ANDWICH ASSAY. Other Topography unknown / Unknown 05/30/2025 10:59 AM EDT 05/30/2025 10:59 AM EDT Chivo Lynda Keller DO LAB BLOOD ORDERABLES Radha l Result Performing Organization Address [facility] Co de Phone Number [facility] [address] [place] [address], [facility] [address] [place] [address] * VIT. B12/FOLATE PROFILE (05/30/2025 10:59 AM EDT) VITAMIN B12 433 180 - 914 pg/mL 05/30/2025 12:17 PM EDT [facility] FOLATE >49.6 >5.9 ng/mL 05/30/2025 1:07 PM EDT [facility] Comment: Folate reference range: >5.9 ng/ml The WHO technical consultation on folate and vitamin b12 deficiencies has determined that folate concentrations less than 4 ng/ml are considered deficient. Other Topography unknown / Unknown 05/30/2025 10:59 AM EDT 05/30/2025 10:59 AM EDT Chivo Keller DO LAB BLOOD ORDERABLES Radha l Result Performing Organization Address [facility] Co de Phone Number [address] [address], [facility] [address] [place] [address] * (ABNORMAL) CBC auto differential (05/30/2025 10:59 AM EDT) WBC 7.2 4.1 - 10.5 [CFU]/mL 05/30/2025 11:33 AM EDT [facility] UNCORRECTED WHITE BLOOD COUNT 7.2 4.1 - 10.5 10*3/uL 05/30/2025 11:33 AM EDT [facility] RBC 3.93 3.90 - 5.60 10*6/uL 05/30/2025 11:33 AM EDT [facility] HEMOGLOBIN 12.5(L) 13.0 - 17.0 g/dL 05/30/2025 11:33 AM EDT [facility] HEMATOCRIT 37.5(L) 38.8 - 50.0 % 05/30/2025 11:33 AM EDT [facility] MCV 95.5 83.5 - 101 fL 05/30/2025 11:33 AM EDT [facility] MCH 31.7 27.5 - 35.2 pg 05/30/2025 11:33 AM EDT [facility] MCHC 33.2 32.5 - 35.6 g/dL 05/30/2025 11:33 AM EDT [facility] RED CELL DISTRIBUTION WIDTH, RDW 14.7 12.0 - 14.8 % 05/30/2025 11:33 AM EDT [facility] PLATELET COUNT 205 150 - 450 10*3/uL 05/30/2025 11:33 AM EDT [facility] MEAN PLATELET VOLUME, MPV 7.3 6.6 - 10.1 fL 05/30/2025 11:33 AM EDT [facility] NEUTROPHILS, % 67.8 . % 05/30/2025 11:33 AM EDT [facility] LYMPHOCYTES, % 19.9 . % 05/30/2025 11:33 AM EDT [facility] MONOCYTE/MACROPHA GE, % 9.7 . % 05/30/2025 11:33 AM EDT [facility] EOSINOPHILS, % 2.2 . % 05/30/2025 11:33 AM EDT [facility] BASOPHILS, % 0.4 . % 05/30/2025 11:33 AM EDT [facility] NRBC 0.0 0 - 0.5 /100{WBC} 05/30/2025 11:33 AM EDT [facility] NEUTROPHILS 4.9 1.8 - 7.7 10*3/uL 05/30/2025 11:33 AM EDT [facility] LYMPHOCYTES 1.4 1.00 - 4.8 10*3/uL 05/30/2025 11:33 AM EDT [facility] MONOCYTES 0.7 0.0 - 0.8 10*3/uL 05/30/2025 11:33 AM EDT [facility] EOSINOPHILS 0.2 0.0 - 0.45 10*3/uL 05/30/2025 11:33 AM EDT [facility] BASOPHILS 0.0 0.0 - 0.2 10*3/uL 05/30/2025 11:33 AM EDT [facility] Blood (Blood) 05/30/2025 10: 59 AM EDT 05/30/2025 10:59 AM EDT Chivo Keller DO LAB BLOOD ORDERABLES Radha l Result Performing Organization Address [facility] Co de Phone Number [address] [address], [facility] [address] [place] [address] * (ABNORMAL) Iron and TIBC (05/30/2025 10:59 AM EDT) IRON 76 50 - 212 ug/dL 05/30/2025 11:51 AM EDT [facility] TOTAL IRON BINDING CAPACITY 270 255 - 450 ug/dL 05/30/2025 11:51 AM EDT [facility] % IRON SATURATION 28.1 20 - 50 % 05/30/2025 11:51 AM EDT [facility] TRANSFERRIN 193(L) 203 - 362 mg/dL 05/30/2025 11:51 AM EDT [facility] Other Topography unknown / Unknown 05/30/2025 10:59 AM EDT 05/30/2025 10:59 AM EDT Chivo Keller DO LAB BLOOD ORDERABLES Radha l Result [address] [address], [facility] [address] [place] [address] * Ferritin (05/30/2025 10:59 AM EDT) FERRITIN 236.2 23.9 - 336.2 ng/mL 05/30/2025 12:13 PM EDT [facility] Other Topography unknown / Unknown 05/30/2025 10:59 AM EDT 05/30/2025 10:59 AM EDT Chivo Keller DO LAB BLOOD ORDERABLES Radha kasia Result [facility] [address] [place] [address], [facility] [address] [place] [address] * (ABNORMAL) Comprehensive metabolic panel (05/30/2025 10:59 AM EDT) Pathologist [facility] Glucose 106(H) 70 - 100 mg/dL 05/30/2025 11:51 AM EDT [facility] Comment: Random Glucose Reference Range is dependent on time and content of last meal. Glucose of more than 200 mg/dL in a nonstressed, ambulatory subject supports the diagnosis of Diabetes Mellitus. ADA recommended reference range BUN 44(H) 7 - 25 mg/dL 05/30/2025 11:51 AM EDT [facility] CREATININE 2.26(H) 0.70 - 1.30 mg/dL 05/30/2025 11:51 AM EDT [facility] ESTIMATED GFR 28.071 05/30/2025 11:51 AM EDT [facility] Sodium 141 136 - 145 mmol/L 05/30/2025 11:51 AM EDT [facility] Potassium, Bld 4.2 3.5 - 5.1 mmol/L 05/30/2025 11:51 AM EDT [facility] Chloride 101 98 - 107 mmol/L 05/30/2025 11:51 AM EDT [facility] Carbon Dioxide 34.0(H) 21.0 - 31.0 mmol/L 05/30/2025 11:51 AM EDT [facility] Anion Gap 10.2 6.0 - 15.0 [facility] Calcium 8.6 8.6 - 10.3 mg/dL 05/30/2025 11:51 AM EDT [facility] TOTAL PROTEIN 6.5 6.4 - 8.9 g/dL 05/30/2025 11:51 AM EDT [facility] ALBUMIN LEVEL 4.2 3.5 - 5.7 g/dL 05/30/2025 11:51 AM EDT [facility] GLOBULIN 2.3 g/dL 05/30/2025 11:51 AM EDT [facility] ALBUMIN/GLOBULIN RATIO 1.8 05/30/2025 11:51 AM EDT [facility] BILIRUBIN,TOTAL 0.6 0.3 - 1.0 mg/dL 05/30/2025 11:51 AM EDT [facility] ASPARTATE AMINO TRANSFERASE 17 13 - 39 U/L 05/30/2025 11:51 AM EDT [facility] ALANINE AMINOTRANSFERASE 15 7 - 52 U/L 05/30/2025 11:51 AM EDT [facility] ALKALINE PHOSPHATASE 124(H) 34 - 104 U/L 05/30/2025 11:51 AM EDT [facility] CREATININE CLR [facility] 26.38 05/30/2025 11:51 AM EDT [facility] Other Topography unknown / Unknown 05/30/2025 10:59 AM EDT 05/30/2025 10:59 AM EDT Chivo Keller DO LAB BLOOD ORDERABLES Radha l Result Performing Organization Address City/State/[facility] de Phone Number [facility] [address] [place] [address], [facility] [address] [place] [address] from Last 3 Months Insurance MEDICARE AAR Care Teams Assessment Analyst Relationship Specialty Start Date End Date Arnie Lund DO [address] [place] [address] PCP - General Internal Medicine 02/18/25
--- OUTSIDE RECORDS SUMMARY | 2025-07-19 12:12 | XMS_ITS | Encounter Summary ---
Author Organization [facility] Address [address] [place] [address] Care Team Providers Care Garden Center Manager Name Role Phone Arnie Lund DO Primary Care Provider [phone] Arnie Lund DO Primary Care Provider [phone] Encounter Details Date Type Department Care Team (Late st Contact Info) Description 01/23/2023 Abstract [facility] [address] [place] [address] Marilin Bhardwaj, [facility] [address] [facility] [place] [address] Social History Tobacco Use Types Packs/Day Years [...] Visit [facility] [address] [place] [address] Kole Batista DPM [address] [place] [phone] documented as of this encounter Visit Diagnoses Not on filedocumented in this encounter Care Teams Garden Center Manager Relationship Specialty Start Date End Date Arnie Lund DO PCP - General Internal Medicine 08/24/23 02/17/25 Arnie Lund DO [address] [place] [address] PCP - General Internal Medicine 02/18/25 documented as of this encounter
--- OUTSIDE RECORDS SUMMARY | 2025-07-19 12:12 | XMS_ITS | Encounter Summary ---
Author Organization [facility] Address [address] [place] [address] Care Team Providers Care Regulatory Internship Name Role Phone Arnie Lund DO Primary Care Provider [phone] Arnie Lund DO Primary Care Provider [phone] Encounter Details Date Type Department Care Team (Late st Contact Info) Description 02/22/2024 External Result Encounter [facility] External Department Unsolicited Chivo Keller, DO [address] [place] [address] Social History Tobacco Use Types Packs/Day Years [...] Description 08/27/2025 9:45 AM EST Procedure [facility] [address] [place] [phone] Kole Batista DPM [address] [place], [place] [phone] documented as of this encounter Procedures Procedure [...] Granulomatous changes are noted in the mediastinum, crystal, and lung parenchyma bilaterally. No evidence of pulmonary metastatic disease. There is a 12 mm nodule in the right adrenal gland which is unchanged. 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 No intra-abdominal metastatic disease. Impression dictated by: Gerard Bernard M.D.02/22/2024 2:03 PM Dictation Location: [place] [address] Transcribed By: [facility] 02/22/24 1403 Dictated By: Gerard Bernard II, MD 02/22/24 1351 Signed By: <Electronically signed by Gerard Bernard II, MD in OV> 02/22/24 1403 Narrative 02/22/2024 2:05 PM EDT [facility] [place] [address] CT Scan Report Signed Patient: Nas Alamo MR#: [id number] [birth year] : 1940 Acct:[id number] Age/Sex: 83 / M ADM Date: 02/22/24 Loc: Room: Type: [facility] Attending Dr: Chivo Keller II DO Copies to: Chivo Keller II, DO Ordering Provider: Chivo Keller II, DO Date of Service: 02/22/24 CT/CT abdomen pelvis wo con: surveilance ([id number]) CT/CT chest wo con: surveilance CT chest [...] superior vena cava and heart.. Mediastinum and Crystal: There is a calcified mediastinal lymph node. [...] con Procedure Note Radiology, Radiologist, - 02/22/2024 [facility] Main [place] [address] [place] [address] CT Scan Report Signed Patient: Nas Alamo DMR#: [id number] 24 : 2Acct:[id number] Age/Sex: 83 / MADM Date: 02/22/24 Loc: XT [facility] Dr: Chivo Keller II DO Copies to: Chivo Keller II, DO Ordering Provider: Chivo Keller II, DO Date of Service: 02/22/24 CT/CT abdomen pelvis wo con: surveilance ([id number]) CT/CT chest wo con: surveilance CT chest [...] superior vena cava and heart.. Mediastinum and Crystal: There is a calcified mediastinal lymph node.Calcified [...] Granulomatous changes are noted in the mediastinum, crystal, and lungparenchyma bilaterally. No evidence of pulmonary metastatic disease. There is a 12 mm nodule in the right adrenal gland which is unchanged. 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 No intra-abdominal metastatic disease. Impression dictated by: Gerard Bernard M.D.02/22/2024 2:03 PM Dictation Location: [place] [address] Transcribed By: [facility] 02/22/24 1403 Dictated By: Gerard Bernard II, MD 02/22/24 1351 Signed By: <Electronically signed by Gerard Bernard II, MD inOV> 02/22/24 1403 Chivo Keller DO IMG CT PROCEDURES Final R esult documented in this encounter Visit Diagnoses Not on filedocumented in this encounter Care Teams Regulatory Internship Relationship Specialty Start Date End Date Arnie Lund DO PCP - General Internal Medicine 08/24/23 02/17/25 Arnie Lund DO [facility] [place] [phone] PCP - General Internal Medicine 02/18/25 documented as of this encounter
--- OUTSIDE RECORDS SUMMARY | 2025-07-19 12:12 | XMS_ITS | Encounter Summary ---
Author Organization [facility] Address [address] [place] [address] Care Team Providers Care Tank Builder Name Role Phone Arnie Lund DO Primary Care Provider [phone] Encounter Details Date Type Department Care Team (Late st Contact Info) Description 04/23/2025 Orders Only [facility] [address] [place] [address] Sarwat Lazo MD [address] [place] [address] Social History Tobacco Use Types Packs/Day Years Used Date Smoking Tobacco: Former Cigarettes Q uit: 1982 Smokeless Tobacco: Never Alcohol Use Standard Drinks/Week Comments Yes 0 (1 standard drink = 0.6 oz pur e alcohol) OCCASIONAL PHQ-2 Answer Date Recorded Patient Health Questionnaire-2 Score 0 04/25/2023 [place] Safety & Environment Answer Date Rec orded [...] st Contact Info) Description 09/19/2025 Hospital Encounter [facility] V[facility] Vascular Lab [address] [place] [address] Mariusz Montoya MD [address] [place] [address] Scheduled Procedures Name Priority Associated Diagnoses Date/Ti me Atrial Fib Ablation w/ PVI Paroxysmal atrial fibrillation (CMS/HCC) documented as of this encounter Procedures Procedure Name Priority Date/Time Associated Diagnosis Comments CARDIAC DEVICE CHECK - REMOTE ALERT - ICD Routine 04/23/2025 12:00 AM EDT documented in this encounter Results * Cardiac device check - Remote alert ICD (04/23/2025 12:00 AM EDT) Anatomical Region Laterality Modality Other 04/23/2025 Sarwat Lazo MD CV IMPLANTABLE CARDIAC DEVICE PROCEDURES Final Result documented in this encounter Visit Diagnoses Not on filedocumented in this encounter Care Teams Tank Builder Relationship Specialty Start Date End Date Arnie Lund DO [address] [place] [address] [place] [address] PCP - General 06/07/22 documented as of this encounter
--- OUTSIDE RECORDS SUMMARY | 2025-07-19 12:12 | XMS_ITS | Encounter Summary ---
Author Organization [employer] tem Address [id number] [address] [place] [address] Care Team Providers Care Cylinder Press Feeder Name Role Phone Arnie Lund DO Primary Care Provider [phone] Reason for Visit * Reason Comments Med Refill Encounter Details Date Type Department Care Team (Late st Contact Info) Description 11/03/2023 Refill [facility] [address] [place] [address] Americo Shaw MD [address] [place], [place] [phone] Social History Tobacco Use Types Packs/Day Years [...] on filedocumented in this encounter Care Teams Cylinder Press Feeder Relationship Specialty Start Date End Date Arnie Lund DO PCP - General Internal Medicine 11/11/21 documented as of this encounter
--- OUTSIDE RECORDS SUMMARY | 2025-07-19 12:12 | XMS_ITS | Encounter Summary ---
Author Organization [facility] Address [address] [place] [address] Care Team Providers Care Home Visits Nurse Name Role Phone Arnie Lund DO Primary Care Provider [phone] Reason for Visit * Reason Comments Med Refill Encounter Details Date Type Department Care Team (Late st Contact Info) Description 01/04/2024 Refill [facility] [address] [place] [address] Adan Ortiz MD [address] [facility] [place] [address] Persistent atrial fibrillation (CMS/HCC) Social History Tobacco Use Types Packs/Day Years Used Date Smoking Tobacco: Former Cigarettes Q uit: 1982 Smokeless Tobacco: Never Alcohol Use Standard Drinks/Week Comments Yes 0 (1 standard drink = 0.6 oz pur e alcohol) OCCASIONAL PHQ-2 Answer Date Recorded Patient Health Questionnaire-2 Score 0 04/25/2023 [place] Safety & Environment Answer Date Rec orded [...] st Contact Info) Description 09/19/2025 Hospital Encounter [facility] Heart and Vascular Center Vascular Lab [address] [place] [address] Mariusz Montoya MD [address] [place] [address] Scheduled Procedures Name Priority Associated Diagnoses Date/Ti me Atrial Fib Ablation w/ PVI Paroxysmal atrial fibrillation (CMS/HCC) documented as of this encounter Visit Diagnoses Diagnosis Persistent atrial fibrillation (CMS/HCC) Atrial fibrillation documented in this encounter Care Teams Home Visits Nurse Relationship Specialty Start Date End Date Arnie Lund DO [address] [place] [address] [place] [address] PCP - General 06/07/22 documented as of this encounter
--- OUTSIDE RECORDS SUMMARY | 2025-07-19 12:12 | XMS_ITS | Encounter Summary ---
Author Organization [employer] tem Address [id number] [address] [place] [address] Care Team Providers Care Gastroenterology Professor Name Role Phone Kevon Arnie Bel HERRMANN Primary Care Provider [phone] Encounter Details Date Type Department Care Team (Late st Contact Info) Description 01/10/2025 Telephone [facility] [address] [facility] [address] [place] [address] Connie Dunham CMA Social History Tobacco Use [...] on filedocumented in this encounter Care Teams Gastroenterology Professor Relationship Specialty Start Date End Date Arnie Lund DO PCP - General Internal Medicine 11/11/21 documented as of this encounter
--- OUTSIDE RECORDS SUMMARY | 2025-07-19 12:12 | XMS_ITS | Encounter Summary ---
Author Organization [facility] Address [address] [place] [address] Care Team Providers Care Rate Analyst Name Role Phone Arnie Lund DO Primary Care Provider [phone] Encounter Details Date Type Department Care Team (Late st Contact Info) Description 02/20/2025 Orders Only [facility] Cardiology Clinic [address] [place] [address] Sarwat Lazo MD [address] [place] [address] Social History Tobacco Use Types Packs/Day Years Used Date Smoking Tobacco: Former Cigarettes Q uit: 1982 Smokeless Tobacco: Never Alcohol Use Standard Drinks/Week Comments Yes 0 (1 standard drink = 0.6 oz pur e alcohol) OCCASIONAL PHQ-2 Answer Date Recorded Patient Health Questionnaire-2 Score 0 04/25/2023 [place] Safety & Environment Answer Date Rec orded [...] st Contact Info) Description 09/19/2025 Hospital Encounter [facility] Heart and Vascular Center Vascular Lab [address] [place] [address] Mariusz Montoya MD [address] [place] [phone] Scheduled Procedures Name Priority Associated Diagnoses [...] on filedocumented in this encounter Care Teams Rate Analyst Relationship Specialty Start Date End Date Arnie Lund DO [address] [place] [address] [place] [phone] PCP - General 06/07/22 documented as of this encounter
--- OUTSIDE RECORDS SUMMARY | 2025-07-19 12:12 | XMS_ITS | Clinical Summary ---
Author Organization [employer] tem Address [id number] [address] [place] [address] Care Team Providers Care Top And Seat Cover Fitter Name Role Phone Kevon Arnie Bel HERRMANN Primary Care Provider [phone] Allergies Active Allergy Reactions Criticality Noted Date Comments Mrbmjqh-Jni-Zig Reductase Inhibitors 11/03/2021 Medications allopurinoL (ZYLOPRIM) 100 [...] failure 11/03/2021 COPD (chronic obstructive pulmonary disease) Family History Medical History Relation Name Comments [...] 08/08/2024 Medical Devices Not on file Insurance MEDICARE [facility] Care Teams Top And Seat Cover Fitter Relationship Specialty Start Date End Date Arnie Lund DO PCP - General Internal Medicine 11/11/21
--- OUTSIDE RECORDS SUMMARY | 2025-07-19 12:12 | XMS_ITS | Clinical Summary ---
Author Organization [facility] Address [address] [place] [address] Phone Care Team Providers Care Gerentological Physiotherapist Name Role Phone Unavailable Primary Care Provider [...]
--- OUTSIDE RECORDS SUMMARY | 2025-07-19 12:12 | XMS_ITS ---
Author Organization [facility] Address [address] [place] [address] Care Team Providers Care Secondary School Registrar Name Role Phone KevonArnie DO Primary Care Provider [phone] Active Problems Problem Noted Date Diagnosed Date [...] (04/04/2023): Added automatically from request for surgery [id number] Stage 3 chronic kidney disease 06/09/2022 Chronic systolic heart failure 06/09/2022 Assessment & Plan (09/20/2022 5:21 PM EST): -HFrEF -NHYA III -he appears euvolemic on exam despite weight gain, this could be attributed to correcting thyroid issues -He has no LE edema, JVD -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 grommet machine operator regarding kidney function -he will need 3 [...] diabetes mellitus 06/16/2021 Paroxysmal atrial flutter 08/16/2019 Current Treatment and Therapy Plans No current plan information found. Past Treatment and Therapy Plans No past plan information found. Lifetime Dose Tracking * Chemical Lifetime Dose Automatic Entry Manual Entr y Fluoro Time 7.9 minutes 0 minutes 7.9 minutes Air Kerma 62 mGy 0 mGy 62 mGy Resolved Problems Problem Noted Date Diagnosed Date Resolved Date Cardiomegaly 06/16/2021 04/28/2023
--- OUTSIDE RECORDS SUMMARY | 2025-07-19 12:12 | XMS_ITS | Encounter Summary ---
Author Organization [employer] tem Address [id number] [address] [place] [address] Care Team Providers Care Bingo Attendant Name Role Phone Arnie Lund DO Primary Care Provider [phone] Encounter Details Date Type Department Care Team (Late st Contact Info) Description 04/13/2023 Telephone [facility]N [facility] [address] [place] [phone] External, Scanning Provider Social History Tobacco Use [...] on filedocumented in this encounter Care Teams Bingo Attendant Relationship Specialty Start Date End Date Arnie Lund DO PCP - General Internal Medicine 11/11/21 documented as of this encounter
--- OUTSIDE RECORDS SUMMARY | 2025-07-19 12:12 | XMS_ITS | Encounter Summary ---
Author Organization [facility] Address [address] [place] [address] Care Team Providers Care Real Estate Investment Analyst Name Role Phone Arnie Lund DO Primary Care Provider [phone] Reason for Visit * Reason Comments Med Refill Encounter Details Date Type Department Care Team (Late st Contact Info) Description 04/15/2023 Refill [facility] Cardiology [address] [place] [phone] Little Mckeon, ENGINE HOSTLER [address] [place] [phone] Social History Tobacco Use Types Packs/Day Years [...] st Contact Info) Description 09/19/2025 Hospital Encounter [facility] Heart and Vascular Center Vascular Lab [address] [place] [address] Mariusz Montoya MD [address] [place] [address] Scheduled Procedures Name Priority Associated Diagnoses Date/Ti me Atrial Fib Ablation w/ PVI Paroxysmal atrial fibrillation (CMS/HCC) documented as of this encounter Visit Diagnoses Not on filedocumented in this encounter Care Teams Real Estate Investment Analyst Relationship Specialty Start Date End Date Arnie Lund DO [address] [facility] [place] [address] PCP - General 06/07/22 documented as of this encounter
--- OUTSIDE RECORDS SUMMARY | 2025-07-19 12:12 | XMS_ITS | Encounter Summary ---
Author Organization [facility] Address [address] [place] [address] Care Team Providers Care Medical Chemist Name Role Phone Arnie Lund DO Primary Care Provider [phone] Arnie Lund DO Primary Care Provider [phone] Encounter Details Date Type Department Care Team (Late st Contact Info) Description 08/30/2023 External Result Encounter [facility] External Department Unsolicited Leigha Nelson, INSURANCE VERIFICATION CLERK [address] [place] [address] Social History Tobacco Use Types Packs/Day Years [...] EST Procedure Visit [facility] [address] [facility] [place] [phone] Kole Batista DPM [address] [place] [address] documented as of this encounter Procedures Procedure [...] Scott Jr., D.O.08/30/2023 1:10 PM Dictation Location: [facility]08 Transcribed By: PWS 08/30/23 1310 Dictated By: Sotero Scott Jr, DO 08/30/23 1304 Signed By: <Electronically signed by Sotero Scott Jr, DO in OV> 08/30/23 1310 Narrative 09/01/2023 12:10 PM EST [facility] [place] [address] CT Scan Report Signed Patient: Nas Alamo MR#: [id number] [birth year] : 1940 Acct:[id number] Age/Sex: 83 / M ADM Date: 08/30/23 Loc: Room: Type: [facility] RCR Attending Dr: Chivo Keller II, DO Copies to: EDWARD Luke II, DO Ordering Provider: Leigha Nelson APRN Date of Service: 08/30/23 CT/CT chest wo con: surveillance ([id number]) CT/CT abdomen pelvis wo con: surveillance CT [...] chest wo con Procedure Note Radiology, Radiologist, MD - 09/01/2023 [facility] [place] [address] [place] [address] CT Scan Report Signed Patient: Nas Alamo DMR#: [id number] 24 : 2Acct:[id number] Age/Sex: 83 / MADM Date: 08/30/23 Loc: Room:Type: [facility] Attending Dr: Chivo Keller II DO Copies to: EDWARD Luke II, DO Ordering Provider: Leigha Nelson APRN Date of Service: 08/30/23 CT/CT chest wo con: surveillance ([id number]) CT/CT abdomen pelvis wo con: surveillance CT [...] Scott Jr., D.O.08/30/2023 1:10 PM Dictation Location: [place] [address] Transcribed By: [facility] 08/30/23 1310 Dictated By: Sotero Scott Jr, DO 08/30/23 1304 Signed By: <Electronically signed by Sotero Scott Jr, DO inOV> 08/30/23 1310 Leigha Aj Albinjose luisjimena INSURANCE VERIFICATION CLERK IMG CT PROCEDURES Final Resul t documented in this encounter Visit Diagnoses Not on filedocumented in this encounter Care Teams Medical Chemist Relationship Specialty Start Date End Date Arnie Lund DO PCP - General Internal Medicine 08/24/23 02/17/25 Arnie Lund DO [address] [place] [phone] PCP - General Internal Medicine 02/18/25 documented as of this encounter
--- OUTSIDE RECORDS SUMMARY | 2025-07-19 12:12 | XMS_ITS | Encounter Summary ---
Author Organization [email or web address] tem Address [id number] [address] [place] [address] Care Team Providers Care Automobile Club Information Clerk Name Role Phone Arnie Lund DO Primary Care Provider [phone] Encounter Details Date Type Department Care Team (Late st Contact Info) Description 09/23/2022 Telephone PHN [facility] [address] [facility] [address] [place] [phone] Etelvina Byrd RMA Social History Tobacco Use [...] on filedocumented in this encounter Care Teams Automobile Club Information Clerk Relationship Specialty Start Date End Date Arnie Lund DO PCP - General Internal Medicine 11/11/21 documented as of this encounter
--- OUTSIDE RECORDS SUMMARY | 2025-07-19 12:12 | XMS_ITS | Encounter Summary ---
Author Organization [facility] Address [address] [place] [address] Care Team Providers Care Schedule Checker Name Role Phone Arnie Lund DO Primary Care Provider [phone] Arnie Lund DO Primary Care Provider [phone] Encounter Details Date Type Department Care Team (Late st Contact Info) Description 02/07/2023 Abstract [facility] [address] [place] [phone] Marilin Bhardwaj, [facility] [address] [facility] [place] [address] Social History Tobacco Use Types Packs/Day Years [...] Procedure Visit [facility] [address] [place] [phone] Kole Batista DPM [address] [place] [phone] documented as of this encounter Visit Diagnoses Not on filedocumented in this encounter Care Teams Schedule Checker Relationship Specialty Start Date End Date Arnie Lund DO PCP - General Internal Medicine 08/24/23 02/17/25 Arnie Lund DO [address] [place] [address] PCP - General Internal Medicine 02/18/25 documented as of this encounter
--- OUTSIDE RECORDS SUMMARY | 2025-07-19 12:12 | XMS_ITS | Clinical Summary ---
Author Organization [facility] Address [address] [place] [address] Care Team Providers Care Research And Insights Executive Name Role Phone Arnie Lund DO Primary Care Provider [phone] Allergies Active Allergy Reactions Criticality Noted Date Comments Vdjekww-Tbr-Gza Reductase Inhibitors 06/09/2022 Tramadol 06/09/2022 Medications allopurinol (Zyloprim) 100 mg tablet Take 1 tablet by mouth in the morning. Active cholecalciferol , vitamin D3, 100 mcg (4,000 unit) capsule [...] by mouth 2 (two) times a week. 02/26/20 22 Active Trelegy Ellipta 200-62.5-25 mcg blister with deviceIndicatio ns:Mild asthma, unspecified whether complicated, unspecified whether persistent INHALE 1 INHALATION BY MOUTH IN THE MORNING 180 each 3 02/23/20 23 Active furosemide (Lasix) 80 mg tablet Take 80 mg by mouth in the morning. Active isosorbide dinitrate (Isordil) 10 mg tabletIndicatio ns:Chest pain, unspecified type TAKE 1 TABLET BY MOUTH 3 TIMES DAILY 270 tablet 3 10/03/20 24 Active Additional Information Patient taking differently:10 mg oral2 times daily, Reported on 05/27/2025 ascorbic acid (Vitamin C) 500 mg ER capsule Take 200 mg by mouth in the morning. Active ferrous sulfate 325 (65 Fe) MG EC tablet Take 65 mg of iron by mouth with breakfast, with lunch, and with evening meal. Do not crush, chew, or split. Active rivaroxaban (Xarelto) 15 mg tabletIndicatio ns:PAF (paroxysmal atrial fibrillation) (CMS/HCC) Take 1 tablet (15 mg) by mouth daily with evening meal. Take with food. 01/29/20 Active amLODIPine (Norvasc) 10 mg tablet Take 10 mg by mouth in the morning. Active levothyroxine (Synthroid, Levoxyl) 25 mcg tablet Take 25 mcg by mouth in the morning. 03/19/20 25 Active ezetimibe (Zetia) 10 mg tabletIndicatio ns:Hyperlipemia , mixed TAKE 1 TABLET BY MOUTH AT BEDTIME 90 tablet 3 04/11/20 25 Active metoprolol succinate XL (Toprol-XL) 100 mg 24 hr tabletIndicatio ns:Persistent atrial fibrillation (CMS/HCC) TAKE 1 TABLET BY MOUTH ONCE DAILY DIRECTED. DO NOT CRUSH OR CHEW 90 tablet 3 06/26/20 25 Active hydrALAZINE (Apresoline) 25 mg tabletIndicatio ns:Chronic systolic heart failure (CMS/HCC),Prima ry hypertension Take 1 tablet (25 mg) by mouth three times daily. 270 tablet 3 06/27/20 25 2025 Active metoprolol succinate XL (Toprol-XL) 100 mg 24 hr tabletIndicatio ns:Persistent atrial fibrillation (CMS/HCC) Take 1 tablet (100 mg) by mouth once daily as directed. Do not crush or chew. 90 tablet 3 07/22/20 24 2024 Discontinued hydrALAZINE (Apresoline) 25 mg tabletIndicatio ns:Chronic systolic heart failure (CMS/HCC),Prima ry hypertension Take 1 tablet (25 mg) by mouth two times daily. 180 tablet 3 04/14/20 25 2024 Discontinued(R audra) Active Problems Problem Noted Date Diagnosed Date [...] (04/04/2023): Added automatically from request for surgery [id number] Stage 3 chronic kidney disease 06/09/2022 Chronic systolic heart failure 06/09/2022 Assessment & Plan (09/20/2022 5:21 PM EST): -HFrEF -NHYA III -he appears euvolemic on exam despite weight gain, this could be attributed to correcting thyroid issues -He has no LE edema, JVD -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 carbon furnace operator regarding kidney function -he will need [...] Diagnosed Date Resolved Date Cardiomegaly 06/16/2021 04/28/2023 Encounters Date Type Department Care Team Description 06/27/2025 Refill [facility] [address] [place] [facility] [place] [address] Kalee Mahmood MA Chronic systolic heart failure (CMS/HCC); Primary hypertension 06/26/2025 Telephone [facility] [address] [place] [address] Kalee Mahmood MA 06/26/2025 Refill [facility] [address] [place] [address] Adan Ortiz MD Persistent atrial fibrillation (CMS/HCC) 06/24/2025 4:30 AM EDT Ancillary Procedure [facility] [address] [place] [address] Pre-operative cardiovascular examination, ICD in place 06/24/2025 Orders Only [facility] [address] [place] [address] Mariusz Montoya MD 06/06/2025 Telephone [facility] [address] [place] [address] Marilin Aguayo MA 06/06/2025 Orders Only [facility] [address] [place] [address] Little Mckeon CNP 05/27/2025 9:30 AM EDT Office Visit [address] [place] [address] Mariusz Montoya MD Paroxysmal atrial fibrillation (CMS/HCC) (Primary Dx) 05/27/2025 Orders Only [facility] [address] [place] [address] Kalee Mahmood MA Paroxysmal atrial fibrillation (CMS/HCC) (Primary Dx) 05/26/2025 9:30 AM EDT Ancillary Procedure [facility] [address] [facility] [place] [address] Pre-operative cardiovascular examination, ICD in place 05/22/2025 Orders Only [facility] [address] [place] [address] Sarwat Lazo MD 05/22/2025 Orders Only [facility] [address] [place] [address] Mariusz Montoya MD 05/19/2025 12:30 PM EDT Ancillary Procedure [facility] [address] [place] [address] Pre-operative cardiovascular examination, ICD in place 04/23/2025 12:40 AM EDT Ancillary Procedure [facility] [address] [place] [address] Pre-operative cardiovascular examination, ICD in place 04/23/2025 Orders Only [facility] [address] [place] [address] Sarwat Lazo MD from Last 3 Months Immunizations Immunization Administration Dates Next Due Influenza, Unspecified 07/16/2019 Unspecified Sars-Cov-2 Vaccination 12/03/2020, Family History Medical History Relation Name Comments Glaucoma Brother Heart disease Father Diabetes Maternal Grandmother Diabetes Mother Clotting disorder Other Relation Name Status Comments Brother Father Maternal Grandmother Mother Other Social History Tobacco Use Types Packs/Day Years [...] Sign Reading Time Taken Comments Blood Pressure 144/73 05/27/2025 9:25 AM EDT Pulse 75 05/27/2025 9:25 AM EDT Temperature 36.1 C (97 F) 07/08/2021 2:48 PM EDT Respiratory Rate 11 10/17/2024 12:27 PM EST Oxygen Saturation 95% 05/27/2025 9:25 AM EDT Inhaled Oxygen Concentration - - Weight 90.7 kg (200 lb) 05/27/2025 9:25 AM EDT Height 180.3 cm (5' 11 ) 05/27/2025 9:25 AM EDT Body Mass Index 27.89 05/27/2025 9:25 AM EDT Plan of Treatment Upcoming Encounters Date Type Department Care Team (Late st Contact Info) Description 09/19/2025 Hospital Encounter [facility] [address] [place] [address] Mariusz Montoya MD [address] [place] [address] Scheduled Procedures Name Priority Associated Diagnoses Date/Ti me Atrial Fib Ablation w/ PVI Paroxysmal atrial fibrillation (CMS/HCC) Health Maintenance Due Date Last Done Comments Medicare Annual Wellness (AWV) 1940 Diabetes: Retinopathy Screening 1952 Depression Screening 1954 Diabetes: Urine Protein Screening 1961 Adult Tetanus 1964 Zoster Vaccines (1 of 2) 1992 Fall Risk Screening 2007 Pneumococcal Vaccine: 50+ Years (2 of 2 - PPSV23, PCV20, or PCV21) 09/10/2013 07/16/2013 Diabetes: Hemoglobin A1C 07/02/2022 04/01/2022, 07/17 COVID-19 Vaccine ( season) 2025 07/22/2024, 07/20/2023, 07/10/2022, Additional history exists Influenza Vaccine (#1) 2025 , 07/11/2023, 07/04/2022, Additional history exists HIB Vaccines Aged Out No longer eligi ble based on patient's age to complete this topic HPV Vaccines Aged Out No longer eligi ble based on patient's age to complete this topic IPV Vaccines Aged Out No longer eligi ble based on patient's age to complete this topic Meningococcal B Vaccine Aged Out No l onger eligible based on patient's age to complete this topic Meningococcal Vaccine Aged Out No arelis ned eligible based on patient's age to complete this topic Rotavirus Vaccines Aged Out No longer eligible based on patient's age to complete this topic Medical Devices Implanted Type [employer] Director Device Identifier Shelf Expiration Date Model / Serial / Lot Rivacor 7 Hf-T Qp Implanted:Qty: 1 on 06/12/2023 by Mariusz Montoya MD at [facility] DIRECTOR OF CREATIVE SERVICES-D ICD [employer] [id number] 08/15/2024 [id number] / [id number] / Plexa Promri S 60 - [id number] - [id number] Implanted:Qty: 1 on 06/12/2023 by Mariusz Montoya MD at [facility] Lead [employer] [id number] 01/13/2025 [id number] / [id number] / Lead,Sentus,Qp L-85 - [id number] - [id number] Implanted:Qty: 1 on 06/12/2023 by Mariusz Montoya MD at [facility] Lead [employer] [id number] 12/13/2024 [id number] / [id number] / Procedures Procedure Name Priority Date/Time Associated Diagnosis Comments CARDIAC DEVICE CHECK CHECK - REMOTE Routine 06/25/2025 1:13 PM EDT Pre-operative cardiovascular examination, ICD in place CARDIAC DEVICE CHECK - REMOTE ALERT - ICD Routine 06/24/2025 12:00 AM EDT CARDIAC DEVICE CHECK CHECK - REMOTE Routine 05/29/2025 6:06 PM EDT Pre-operative cardiovascular examination, ICD in place CARDIAC DEVICE CHECK CHECK - REMOTE Routine 05/29/2025 6:03 PM EDT Pre-operative cardiovascular examination, ICD in place CARDIAC DEVICE CHECK - REMOTE ALERT - ICD Routine 05/22/2025 12:00 AM EDT CARDIAC DEVICE CHECK - REMOTE - ICD Routine 05/22/2025 12:00 AM EDT CARDIAC DEVICE CHECK CHECK - REMOTE Routine 05/21/2025 3:47 PM EDT Pre-operative cardiovascular examination, ICD in place CARDIAC DEVICE CHECK CHECK - REMOTE Routine 05/14/2025 2:17 PM EDT Pre-operative cardiovascular examination, ICD in place CARDIAC DEVICE CHECK - REMOTE ALERT - ICD Routine 04/23/2025 12:00 AM EDT HEMOGLOBIN A1C Routine 04/01/2022 5:51 AM EDT from Last 3 Months or Most Recently Relevant to Health Maintenance Results * CARDIAC DEVICE CHECK - REMOTE ALERT - ICD (06/25/2025 1:13 PM EDT) Only the most recent of5 resultswithin the time period is included. us Ron Alejandre MD CV IMPLANTABLE CARDIAC DEVICE OK OCEDURES Final Result CPACS * Cardiac device check - Remote alert ICD (06/24/2025 12:00 AM EDT) Only the most recent of3 resultswithin the time period is included. Anatomical Region Laterality Modality Other 06/24/2025 us Mariusz Montoya MD CV IMPLANTABLE CARDIAC DEVICE OK OCEDURES Final Result * Cardiac device check - Remote ICD (05/22/2025 12:00 AM EDT) Anatomical Region Laterality Modality Other 05/22/2025 us Mariusz Montoya MD CV IMPLANTABLE CARDIAC DEVICE OK OCEDURES Final Result * (ABNORMAL) Hemoglobin A1c (04/01/2022 [...] Recently Relevant to Health Maintenance Insurance MEDICARE [facility] Advance Directives * Full Code (Latest Code Status on File) Date Activated Date Inactivated Comments 06/12/2023 10:55 AM 06/12/2023 2:41 PM Care Teams Research And Insights Executive Relationship Specialty Start Date End Date Arnie Lund DO [address] [place] [address] [facility] - General 06/07/22
--- OUTSIDE RECORDS SUMMARY | 2025-07-19 12:12 | XMS_ITS | Encounter Summary ---
Author Organization [facility] Address [address] [place] [address] Care Team Providers Care Fire Lookout Name Role Phone Arnie Lund DO Primary Care Provider [phone] Arnie Lund DO Primary Care Provider [phone] Encounter Details Date Type Department Care Team (Late st Contact Info) Description 03/07/2023 Abstract [facility] [address] [facility] [address] [place] [id number] Kalia Sánchez MD [address] [facility] [address] [place] [address] Social History Tobacco Use Types [...] 08/27/2025 9:45 AM EST Procedure [facility] [address] [place] [address] Kole Batista DPM [address] [place], [place] [phone] documented as of this encounter Visit Diagnoses Not on filedocumented in this encounter Care Teams Fire Lookout Relationship Specialty Start Date End Date Arnie Lund DO PCP - General Internal Medicine 08/24/23 02/17/25 Arnie Lund DO [address] [place] [phone] PCP - General Internal Medicine 02/18/25 documented as of this encounter
--- OUTSIDE RECORDS SUMMARY | 2025-07-19 12:12 | XMS_ITS | Encounter Summary ---
Author Organization [facility] Address [address] [place] [address] Care Team Providers Care Pastrycook Name Role Phone Arnie Lund DO Primary Care Provider [phone] Encounter Details Date Type Department Care Team (Late st Contact Info) Description 02/24/2025 External Result Encounter [facility] Unsolicited Chivo Keller DO [address] [place] [address] Social History Tobacco Use Types Packs/Day Years [...] Procedure [facility] [address] [place] [address] Kole Batista, DPCanelo [address] [place] [address] documented as of this encounter Procedures Procedure [...] Jr., D.O. 02/24/2025 11:32 AM Dictation Location: [place] [address] Transcribed By: [facility] 02/24/25 1132 Dictated By: Sotero Scott Jr, DO 02/24/25 1125 Signed By: <Electronically signed by Sotero Scott Jr, DO in OV> 02/24/25 1132 Narrative 02/24/2025 11:34 AM EDT [facility] [address] CT Scan Report Signed Patient: Nas Alamo MR#: [id number] 24 : 1940 Acct:[id number] Age/Sex: 84 / M ADM Date: 02/24/25 Loc: Room: Type: [facility] RCR Attending Dr: Chivo Keller II DO Copies to: Chivo Keller II, DO Ordering Provider: Chivo Keller II, DO Date of Service: 02/24/25 CT/CT chest wo con: D50.9 - Iron deficiency anemia, unspecified ([id number]) CT/CT abdomen pelvis wo con: D50.9 - [...] Note Sotero Scott Jr., DO - 02/24/2025 [facility] [place] [address] [place] [address] CT Scan Report Signed Patient: Nas Alamo DMR#: [id number] 24 : 2Acct:[id number] Age/Sex: 84 / MADM Date: 02/24/25 Loc: Room:Type: [facility] RCR Attending Dr: Chivo Keller II DO Copies to: Chivo Keller II, DO Ordering Provider: Chivo Keller II, DO Date of Service: 02/24/25 CT/CT chest wo con: D50.9 - Iron deficiencyanemia, unspecified ([id number]) CT/CT abdomen pelvis wo con: D50.9 - [...] orpelvis. Impression dictated by: Sotero Scott Jr., D.OKeo 02/24/2025 11:32 AM Dictation Location: [place] [address] Transcribed By: [facility] 02/24/25 1132 Dictated By: Sotero Scott Jr, DO 02/24/25 1125 Signed By: <Electronically signed by Sotero Scott Jr, DO inOV> 02/24/25 1132 Chivo Keller DO IMG CT PROCEDURES Final R esult documented in this encounter Visit Diagnoses Not on filedocumented in this encounter Care Teams Pastrycook Relationship Specialty Start Date End Date Arnie Lund DO [address] [place] [address] PCP - General Internal Medicine 02/18/25 documented as of this encounter
--- OUTSIDE RECORDS SUMMARY | 2025-07-19 12:15 | XMS_ITS | CCD ---
Author Organization [facility] Care Team Providers Care Livestock Agent Name Role Phone GILMER SALAZAR Attending Unavailable GILMER SALAZAR Admitting Unavailable YAS LINDA Referring Unavailable YAS LINDA Primary Care Unavailable DO Yas Linda Primary Care Provider [phone] CHARLENE Kelly Attending Provider MD Kalia Sánchez Referring Provider Arianna APARICIO, DO Chivo Howell Attending Provider [phone] MD Kalia Sánchez Referring Provider [phone] DO Chivo Keller II Attending Provider MD Ramesh Rascon Attending Provider DO Yas Linda Primary Care Provider [phone] MD Ramesh Rascon Attending Provider [phone] MD Kalia Sánchez Referring Provider [phone] Arianna APARICIO, DO Chivo Howell Attending Provider [phone] Yas Linda Unavailable LAURA FERMIN Admitting Unavailable LAURA, FERMIN Attending Unavailable LAURAFERMIN Consulting Unavailable MADDI, DR GAITAN Primary Care Unavailable MISC, DR VELASQEUZ Consulting Unavailable MISC, DR VELASQUEZ Admitting Unavailable MISC, DR VELASQUEZ Attending Unavailable BALL, DR GAITAN Primary Care Unavailable GRIGSBY ., DR RUPINDER Staples Admitting Unavailable GRIGSBY ., DR RUPINDER Staples Attending Unavailable ZHONG, DR MICHAELA Jacobson Consulting Unavailable BALL, DR GAITAN Primary Care Unavailable GRIGSBY ., DR RUPINDER Staples Consulting Unavailable OLMEDO, NICK Consulting Unavailable ANTHONY TRACEY Consulting Unavailable MADDI, DR GAITAN Consulting Unavailable BALL, DR GAITAN Primary Care Unavailable BALL, DR GAITAN Admitting Unavailable BALL, DR GAITAN Attending Unavailable MISC, DR VELASQUEZ Consulting Unavailable MISC, DR VELASQUEZ Admitting Unavailable MISC, DR VELASQUEZ Attending Unavailable BALL, DR GAITAN Primary Care Unavailable BALL, DR GAITAN Consulting Unavailable BALL, DR GAITAN Primary Care Unavailable BALL, DR GAITAN Admitting Unavailable BALL, DR GAITAN Attending Unavailable BALL, DR GAITAN Primary Care Unavailable BALL, DR GAITAN Consulting Unavailable BALL, DR GAITAN Admitting Unavailable BALL, DR GAITAN Attending Unavailable LORI, ENRRIQUE Admitting Unavailable LORI, ENRRIQUE Attending Unavailable LORI, ENRRIQUE Consulting Unavailable BALL, DR GAITAN Primary Care Unavailable KUNAL BUTLER, AVERY Pedroza Admitting Unavailab Georgia BUTLER, AVERY Pedroza Attending Unavailab le MISC, DR VELASQUEZ Consulting Unavailable BALL, DR GAITAN Primary Care Unavailable BALL, DR GAITAN Consulting Unavailable BALL, DR GAITAN Admitting Unavailable BALL, DR GAITAN Primary Care Unavailable BALL, DR GAITAN Attending Unavailable MISC, DR VELASQUEZ Consulting Unavailable MISC, DR VELASQUEZ Admitting Unavailable MISC, DR VELASQUEZ Attending Unavailable BALL, DR GAITAN Primary Care Unavailable BALL, DR GAITAN Consulting Unavailable BALL, DR GAITAN Admitting Unavailable BALL, DR GAITAN Attending Unavailable BALL, DR GAITAN Primary Care Unavailable MISC, DR VELASQUEZ Consulting Unavailable MISC, DR VELASQUEZ Admitting Unavailable MISC, DR VELASQUEZ Attending Unavailable BALL, DR GAITAN Primary Care Unavailable BALL, DR GAITAN Attending Unavailable BALL, DR GAITAN Consulting Unavailable BALL, DR GAITAN Primary Care Unavailable BALL, DR GAITAN Admitting Unavailable MISC, DR VELASQUEZ Consulting Unavailable MISC, DR VELASQUEZ Admitting Unavailable MISC, DR VELASQUEZ Attending Unavailable BALL, DR GAITAN Primary Care Unavailable MOUKARBEL, DR SEYMOUR Consulting Unavailable MISC, DR VELASQUEZ Admitting Unavailable MISC, DR VELASQUEZ Attending Unavailable WEST, JJ Valdes Consulting Unavailable BALL, DR GAITAN Primary Care Unavailable MISC, DR VELASQUEZ Consulting Unavailable BALL, DR GAITAN Attending Unavailable BALL, DR GAITAN Consulting Unavailable BALL, DR GAITAN Primary Care Unavailable BALL, DR GAITAN Admitting Unavailable ZIEBER, DR MALENA Jacobson Consulting Unavailable BALL, DR GAITAN Attending Unavailable BALL, DR GAITAN Consulting Unavailable BALL, DR GAITAN Primary Care Unavailable BALL, DR GAITAN Admitting Unavailable LORI, ENRRIQUE Admitting Unavailable LORI, ENRRIQUE Attending Unavailable BALL, DR GAITAN Primary Care Unavailable BALL, DR GAITAN Consulting Unavailable LAURA, FERMIN Admitting Unavailable LAURA, FERMIN Attending Unavailable BALL, DR GAITAN Primary Care Unavailable KUNAL BUTLER, AVERY Pedroza Admitting Unavailab shaina SYED MD, AVERY Pedroza Attending Unavailab AVERY Ho MD Consulting Unavailab shaina LINDA, DR GAITAN Primary Care Unavailable YISSEL, DR SEYMOUR Admitting Unavailable YISSEL, DR SEYMOUR Attending Unavailable MADDI, DR GAITAN Primary Care Unavailable Maddi, DO Gaitan Primary Care Provider [phone] MD Kalia Sánchez Referring Provider Arianna II, DO Chivo J Attending Provider [phone] DO Yas Linda Primary Care Provider [phone] MD Kalia Sánchez Referring Provider Arianna II, DO Chivo Howell Attending Provider [phone] Maddi BUTLER, Yas Staples Primary Care Provider Yas Linda DO Primary Care Provider Yas Linda DO Primary Care Provider Maddi HERRMANN, Yas Primary Care Provider [phone] Barrie BUTLER, Sudha Admit Provider Walker Soria MD Other Provider Nakul BUTLER, Wendy Jacobson Other Provider Marleen MARINE DIESEL MECHANIC-C, Kiesha Pedroza Other Provider Unavail able José Luis Winslow DO Other Provider Mazin Erickson MD Other Provider Dario Rosales DO Other Provider Emile Reynolds DO Attending Provider Winsome Goff MD Other Provider Colleen MARINE DIESEL MECHANIC-C, Judy Other Provider Unavailable Lionel BUTLER, Zahida Other Provider Kaitlynn Emanuel MD Other Provider Talisha Hitchcock MD Other Provider Sotero Black MD Other Provider Brenda Driscoll APRN Other Provider William Quinteros DO Other Provider [phone] Clyde Bedolla MD Other Provider Wayne BUTLER, Sotero Admit Provider Sotero Black MD Attending Provider Yas Linda DO Primary Care Provider Barrie BUTLER, Sudha Admit Provider Yang BUTLER, Walker Other Provider Nakul BUTLER, Wendy Jacobson Other Provider Marleen MARINE DIESEL MECHANIC-C, Kiesha Pedroza Other Provider Unavail able Nayla HERRMANN, José Luis Goyal Other Provider Dre BUTLER, Mazin Lemos Other Provider Dario Rosales DO Other Provider [phone] Emile Reynolds DO Attending Provider [phone] Winsome Goff MD Other Provider Colleen MARINE DIESEL MECHANIC-C, Judy Other Provider Unavailable Zahida Flowers MD Other Provider Kaitlynn Emanuel MD Other Provider Talisha Hitchcock MD Other Provider Wayne BUTLER, Sotero Other Provider Brenda Driscoll APRN Other Provider [phone] William Quinteros DO Other Provider Clyde Bedolla MD Other Provider [phone] Wayne BUTLER, Sotero Admit Provider Sotero Black MD Attending Provider Paulo MEDINA, Noemy Other Provider Unavailable Reynaldo RN, Carolynn Other Provider Unavailable Gretel Kirkland RN Other Provider Unavailable Merissa Balbuena RN Other Provider Unavailable Pati Brice RN Other Provider Unavailable Vicky Jasso MD Other Provider Kofi Bustamante DO Other Provider Mario Salazar MD Other Provider Rachid Adhikari DO Other Provider Genet BUTLER, Yassine Other Provider Sudha Sood MD Other Provider Micah Curry DO Other Provider Nav Peterson MD Other Provider Unavailable Zoie Field APRN Other Provider Jameel BUTLER, Jaye Other Provider [phone] Edna BUTLER, Augustine Other Provider Jan Prasad MD Other Provider Unavailable Shannan Valentin MD Other Provider Micah Lyn DO Other Provider [phone] Douglas BUTLER, Elliott Other Provider Shandra BUTLER, Yaron Other Provider Chase MARINE DIESEL MECHANIC-C, Candi Howell Other Provider Matthew Grey APRN Other Provider Unavailable Kuldeep See MD Other Provider Sacha BUTLER, Kings Other Provider Eloy Resendiz MD Other Provider Chapo BUTLER, Jon Other Provider Unavailable Elias Fermin MD Other Provider Mirian Calvo DO Other Provider Vish Bajwa DO Other Provider Krysten Mcclelland APRN Other Provider Emile Reynolds DO Other Provider [phone] Bertram BUTLER, Carole Lemos Other Provider Siobhan Zhong APRN Other Provider Aislinn Maria APRN Other Provider [phone] Los Calderon MD Other Provider Unavailable Live Grajeda MD Other Provider [phone] Diaz DO, Doron T Other Provider [phone] Forest DO, Yazid Other Provider Martín BUTLER, Wolfgang Davey Other Provider Tera BUTLER, India Villa Other Provider Lisa Sotelo APRN Other Provider Unavailable Stan BUTLER, Magnolia Other Provider Susy BUTLER, Laurent Other Provider Maryana BUTLER, Sotero Rocha Other Provider [phone] Eden BUTLER, Nav Purdy Other Provider Ermais BUTLER, Dano Other Provider Karime LEON, Aria Cabrera Other Provider Dima LEON, Alvina Other Provider Eliza RN, Aura Other Provider Unavailable Ramesh Rascon MD Other Provider Eva LEON, Jerry Lemos Other Provider Corey BUTLER, Son Other Provider Erica Tian DO Other Provider Gilles Kirkland APRN Other Provider [phone] Walker Soria MD Attending Provider NO FAMILY, PHYSICIAN Primary Care Provider Unava ilable Yas Linda DO Primary Care Provider Yas Linda DO Primary Care Provider Kalia Sánchez MD Referring Provider Chivo Keller DO Attending Provider [phone] Kalia Sánchez MD Referring Provider [phone] Chivo Keller DO Attending Provider [phone] Zahida Flowers MD Attending Provider [phone] Yas Linda DO Primary Care Provider Yas Linda DO Attending Provider Walker Soria MD Attending Provider Arianna HERRMANN Chivo Lynda Attending Provider Kalia Sánchez MD Referring Provider [phone] Yas Linda DO Primary Care Provider Yas Linda DO Attending Provider [phone] Zahida Flowers MD Attending Provider MARILIN CLAY [...] KILO Attending Unavailable OLEXA, WALKER Referring Unavailable RUSHER, EMELY S Attending Unavailable KILO GLASER Attending Unavailable OLEXA, WALKER Referring Unavailable SIDRA DELEON Attending Unavailable MARILIN CLAY Attending Unavailable [facility] Unavailable Ramesh Rascon Attending Unavailable Ramesh Rascon Admitting Unavailable Olexa, Walker Attending Unavailable [facility] Unavailable Olexa, Walker Admitting Unavailable Wayne, Sotero Attending Unavailable Wayne, Sotero Admitting Unavailable Olexa, Walker Admitting Unavailable Olexa, Walker Attending Unavailable [facility] Unavailable Olexa, Walker Consulting Unavailable [facility] Unavailable Emile Reynolds Attending Unavailable Barrie, Sudha [...] Quinteros Jr Consulting UnavailClyde Camacho Consulting Unavaila [facility] Unavailable Sotero Black Attending Unavailable Sotero Black [...] Matthew Grey Consulting Unavailable Kuldeep See Consulting UnavailKings Lopez Consulting Unavailable Eloy Resendiz Consulting Unavailable Jon Cowan Consulting Unavailable Jeny, Elias Consulting Unavailable Mirian Calvo Consulting Unavailable Vish Bajwa Consulting Unavailable Krysten Mcclelland Consulting Unavailable Emile Reynolds Consulting Unavailable MarkieomaCarole jacobson Consulting Unavailable Siobhan Zhong Consulting Unavailable Aislinn Maria Consulting Unavailable Los Calderon Consulting Unavailable Live Grajeda Consulting Unavailable Doron Diaz Consulting Unavailable Kia Garg Consulting Unavailable Wolfgang Resendiz Consulting Unavailable India Haley Consulting Unava ilable Lisa Sotelo Consulting Unavailable Stan, Ana Cristinaamaxochilt Consulting Unavailable Laurent Jain Consulting Unavailable Sotero Mijares Consulting Unavailable Nav Harmon Consulting Unavailable Dano Monson Consulting Unavailable Aria Schaffer Consulting Unavailable BolAlvina Dang Consulting Unavaila Aura Casper Consulting Unavailable Winsome Goff Consulting Unavailable Judy Macias Consulting Unavailable Zahida Flowers Consulting Unavailable Kaitlynn Emanuel Consulting Unavailable Ramesh Rascon Consulting Unavailable Jerry Velasquez Consulting Unavailable Asaad, Imad Consulting Unavailable Erica Tian Consulting Unavailable Gilles Kirkland Consulting Unavailable Yas Linda DO Primary Care Provider Yas Linda DO Attending Provider [phone] Walker Soria MD Attending Provider Kecia Goznalez Attending Provider Kalia Sánchez MD Referring Provider Chivo Keller DO Attending Provider RON ALEJANDRE Referring Unavailable ENRRIQUE MCKEON Attending Unavailable TRANG DEGROOT Referring Unavailable RON ALEJANDRE Referring Unavailable TRANG DEGROOT Referring Unavailable TRANG DEGROOT Referring Unavailable TRANG DEGROOT Referring Unavailable TRANG DEGROOT Admitting Unavailable TRANG DEGROOT Attending Unavailable TRANG DEGROOT Attending Unavailable TRANG DEGROOT Referring Unavailable TRANG DEGROOT Referring Unavailable TRANG DEGROOT Referring Unavailable MIKAYLATRANG Pruett Referring Unavailable TRANG DEGROOT Referring Unavailable TRANG DEGROOT Referring Unavailable MIKAYLA, TRANG Referring Unavailable MIKAYLA, TRANG Referring Unavailable MIKAYLA, TRANG Referring Unavailable MIKAYLA, TRANG Referring Unavailable MIKAYLA, TRANG Referring Unavailable MIKAYLA, TRANG Referring Unavailable MIKAYLA, TRANG Referring Unavailable BASHIR, RON Referring Unavailable BASHIR, RON Referring Unavailable MIKAYLA, TRANG Referring Unavailable MIKAYLA, TRANG Referring Unavailable MIKAYLA, TRANG Referring Unavailable ADAN ORTIZ Attending Unavailable TRANG DEGROOT Attending Unavailable ENRRIQUE MCKEON Attending Unavailable ENRRIQUE MCKEON Attending Unavailable TRANG DEGROOT Referring Unavailable Yas Linda DO Primary Care Provider [phone] Yas Linda DO Attending Provider Sidra Deleon DO Attending Provider Yas Linda DO Primary Care Provider [phone] Zahida Flowers MD Attending Provider Allergies Allergy Classification Reported Allergen(s) Allergy Type Date of Onset Reaction(s) Facility (3 sources) black walnut pollen extract; Translations: [MDMGHDC-CCI-YDH REDUCTASE INHIBITORS] Drug Allergy 05-16-20 18 [facility] (20 sources) traMADol; Translations: [TRAMADOL] Drug Allergy 03-30-20 22 Itching [facility] (20 sources) Nvnqqop-XIY-XfX Reductase Inhibitor; Translations: [Oabtblm-MIJ-UsE Reductase Inhibitor] Allergy to substance 06-03-20 22 Muscle Pain [facility] (13 sources) Albuterol Drug Allergy Unknown [facility] [place] Other (17 sources) ezetimibe Drug Allergy Unknown [facility] [place] Other (13 sources) HMG-CoA reductase inhibitor Drug allergy Unknown [facility] [place] Other (19 sources) Niacin Drug Allergy Unknown [facility] [place] Other (20 sources) Simvastatin Drug Allergy 12-18-19 24 Unknown, Unknown Reaction [facility] (8 sources) Statins Depletion *DIETARY PRODUCTS/DIETARY MANAGE Propensity to adverse reactions Unknown [place] Other (4 sources) Allergies Reconciled Propensity to adverse reactions Unknown [facility] [place] Other (8 sources) Albuterol *ANTIASTHMATIC AND BRONCHODILATOR AGENTS Propensity to adverse reactions Comment:dedrick lala more with this [facility] [place] Other (4 sources) patient allergy list reviewed by nurse or physicia Propensity to adverse reactions 04-04-20 Comment:Done [facility] [place] Other (20 sources) Niacin Drug Allergy 12-18-19 24 Unknown, Unknown Reaction, itching [facility] (5 sources) HMG-CoA reductase inhibitor Propensity to adverse reactions to drug 11-03-19 [facility] (1 source) Simvastatin Drug Allergy 08-22-20 [facility] (1 source) traMADol Drug Allergy 08-22-20 [facility] Rep[facility] Medications Current Medications Medication Drug Class(es) Dates Sig (Normalized) Sig (Original) ascorbic acid 500 mg oral tablet (20 sources) Vitamin C Start: 12-27-2024 End: 01-10-2025 take 1 tablet by mouth once daily Ascorbic Acid (Vitamin C) (Vitamin C) 500 mg Tablet Active 500 MG PO Daily January 10, 2025 8:45am Complies with drug therapy take 1 tablet by mouth once rohan y Ascorbic Acid (vitamin C) 250 MG tablet Take 250 mg by mouth Daily Active Aspir-81 (7 sources) Aspir-81 Active calcium carbonate 1500 mg / cholecalciferol 800 unt chewable tablet (20 sources) Vitamin D Start: 01-20-2025 take 1 tablet by mouth once daily Calcium Carbonate-Vitamin D3 (Caltrate 600 Plus D) 600 mg-20 mcg (800 unit) tablet,chewable Active 1 TAB PO Daily January 20, 2025 12:00am Complies with drug therapy Start: 01-20-2025 Start: 12-27-2024 End: 01-20-2025 take [...] 1 tablet by mouth once daily Ezetimibe 10 mg tablet Active 10 MG PO Daily March 01, 2024 12:00am Complies with drug therapy ferrous sulfate 324 mg delayed release oral tablet (20 sources) Start: 01-11-20 take 1 tablet by mouth once daily Ferrous Sulfate 324 mg (65 mg iron) Tablet,Delayed Release (Dr/Ec) Active 324 MG PO Daily January 10, 2025 12:00am Complies with drug therapy Start: 12-15-2023 End: 03-01-2024 take 1 tablet [...] 1 tablet Orally Once a day Active Afdljrtmseu-Dqaiarztj-Jrlgnj (Trelegy Ellipta) 200-62.5-25 MCG/ACT aerosol powder (20 sources) Fluticasone-Umec lidin-Vilant (Trelegy Ellipta) 200-62.5-25 MCG/ACT aerosol powder Inhale Active Xinzrwhjnhs-Wvxcgqcsz-Trdkzw er (6 sources) Start: 03-07-20 Start: 03-07-2025 Fluticasone-Um eclidin-Vilanter (Trelegy Ellipta) 200-62.5-25 mcg blister with device Active 0 .ROUTE .COMPLEX 180 March 07, 2025 1:09pm USE 1 INHALATION BY MOUTH DAILY Complies with drug therapy Start: 03-07-2025 furosemide 40 mg oral tablet (20 sources) Loop Diuretic Start: 04-17-2025 End: 04-17-2025 take 1 tablet by mouth once daily in the morning Furosemide (Lasix) 40 mg tablet Active 40 MG PO Every morning April 17, 2025 4:21pm Complies with drug therapy Start: 02-28-2025 End: 04-17-2025 Furosemide 80 mg [...] oral tablet (20 sources) Arteriolar Vasodilator Start: 07-08-2025 take 2 tablets by mouth three times daily Hydralazine 25 mg tablet Active 50 MG PO Three times daily July 08, 2025 9:32am Complies with drug therapy Start: 04-17-2025 End: 07-08-2025 take 1 tablet by mouth twice daily Hydralazine 25 mg tablet Discontinued 25 MG PO Twice daily April 17, 2025 12:00am July 08, 2025 9:32am Start: 04-07-2025 End: 04-17-2025 take 2 tablets [...] Discontinued 100 MG PO Three times daily 90 June 09, 2021 12:00am February 28, 2025 [...] oral tablet (20 sources) Nitrate Vasodilator Start: 07-08-2025 take 1 tablet by mouth three times daily Start: 04-07-2025 End: 07-08-2025 take 1 tablet by mouth twice daily Isosorbide Dinitrate 10 mg tablet Discontinued 10 MG PO Twice daily 60 April 07, 2025 12:00am July 08, 2025 9:32am allow nitrate-free interval of 12-14 hrs per 24-hr period Start: 07-21-2022 End: 04-07-2025 take 1 tablet [...] Discontinued 10 MG PO Three times daily 90 June 09, 2021 12:00am August 31, 2021 9:56am levothyroxine sodium 0.05 mg oral tablet (20 sources) l-Thyroxine Start: 07-01-2025 End: 07-08-2025 take 1 tablet by mouth once daily Levothyroxine 50 mcg tablet Active 50 MCG PO Daily July 08, 2025 9:41am Complies with drug therapy Start: 02-20-2025 End: 07-01-2025 take 1 tablet by mouth once daily Levothyroxine 25 mcg tablet Discontinued 25 MCG PO Daily May 19, 2025 4:58pm July 01, 2025 1:03pm levothyroxine (T irosint) 25 MCG capsule Take by mouth in the morning. Take before meals. Active 24 hr metoprolol succinate 100 mg extended release oral tablet (20 sources) beta-Adrenergic [place] Start: 01-20-2025 take 1 tablet by mouth once daily Metoprolol Succinate 100 mg tablet extended release 24 hr Active 100 MG PO Daily January 20, 2025 12:00am Complies with drug therapy Start: 01-10-2025 End: 01-20-2025 take 1 tablet by mouth once daily Metoprolol Succinate 25 mg Tablet Extended Release 24 Hr Discontinued 25 MG PO Daily January 10, 2025 12:00am January 20, 2025 [...] 02, 2021 1:37pm take 2 tablets by [facility] every twenty-four hours in the morning [...] once daily Potassium Chloride 10 mEq tablet,ER particles/cryst als Active 10 MEQ PO daily April 07, 2025 9:17am Complies with drug therapy Start: 10-15-2024 End: 01-10-2025 take 1 tablet [...] MOUTH DAILY rivaroxaban 15 mg oral tablet (11 sources) Factor Xa Inhibitor Start: 04-07-2025 take 1 tablet by mouth once daily at dinner Rivaroxaban (Xarelto) 15 mg tablet Active 15 MG PO Daily April 07, 2025 12:00am must administer with evening meal Complies with drug therapy TRELEGY ELLIPTA 200-62.5-25 mcg blister with device [...] End: 08-31-2021 albuterol 0.83 mg/ml inhalation solution (15 sources) beta2-Adrenergic Agonist Start: 12-27-2024 End: 01-10-2025 [...] mg / clavulanate 125 mg oral tablet (15 sources) Penicillin-class Antibacterial Start: 12-27-2024 End: 01-10-2025 take 1 tablet by mouth twice daily Amoxicillin-Pot Clavulanate 500-125 mg Tablet Discontinued 1 TAB PO Twice daily 4 December 27, 2024 12:00am January 10, 2025 [...] daily Not-Taking azithromycin 250 mg oral tablet (15 sources) Macrolide Antimicrobial Start: 12-27-2024 End: 01-10-2025 [...] mg Tablet Discontinued 1 MG PO Q48H 15 June [...] 2021 8:41am cephalexin 500 mg oral capsule (6 sources) Cephalosporin Antibacterial Start : 03-25 End: [...] 2023 2:47pm take 1 tablet by [place] in the morning cholecalciferol, vitamin D3, 5,000 units tablet Take 1 tablet (5,000 Units total) by mouth in the morning. Active cloNIDine hydrochloride 0.1 mg oral tablet (17 sources) Central alpha-2 Adrenergic Agonist take 1 tablet by mouth every twenty-four hours cloNIDine HCl 0.1 MG 1 tablet at bedtime Orally Once a day Not-Taking/PRN docusate sodium 100 mg oral capsule (15 sources) Start: End: take 1 capsule by mouth twice daily Docusate Sodium 100 mg Capsule Discontinued 100 MG PO Twice daily 60 December 27, 2024 12:00am January 10, 2025 8:46am Fluticasone-Umeclidin -Vilanter (18 sources) Start: 024 End: Fluticasone-Umeclidin -Vilanter (Trelegy Ellipta) 200-62.5-25 mcg blister with device Discontinued 1 INH INHALATION Daily 90 February 15, 2024 12:00am March 07, 2025 1:09pm Start: 02-15-2024 End: 03-07-2025 Start: 02-15-2024 Start: 02-15-2024 Fluticasone-Um eclidin-Vilanter (Trelegy Ellipta) 200-62.5-25 mcg blister with device Active 1 INH INHALATION Daily February 15, 2024 12:00am lidocaine 0.04 mg/mg [...] Not-Taking/PRN losartan potassium 25 mg oral tablet (18 sources) Angiotensin 2 Receptor [place] Start: 08-08-2024 [...] 10 mg tablet Discontinued 0 .ROUTE .COMPLEX 15 April 17, 2024 5:53pm April 22, 2024 [...] Start: 10-06-2022 take 0.5 tablet by m out once daily methIMAzole 10 MG 1/2 tablet [...] With Folic Acid (Thera) 400 mcg Tablet (6 sources) Start: 12-27-2024 End: 01-28-2025 take 1 [...] Start: 06-09-2021 End: 08-02-2021 polyethylene glycol 3350 06813 mg powder for oral solution (20 sources) [...] (20 sources) beta-Adrenergic [place] Start: 02-25-2022 End: 07-21-2022 [...] Translations: [Chronic kidney disease, stage 3b] Onset: 2 Chronic obstructive pulmonary disease and bronchiectasis (20 [...] RVSP 61, SANJAY, mod MR - 02/2023 Echo: LVEF 25%, RV r educed function, RVSP 61, SANJAY, mod 02/2023,Echo: LVEF 20-25%, TRISH, normal RV size/function, RVSP 22 03/2025 Coronary atherosclerosis and other heart disease (20 sources) Coronary arteriosclerosis; Translations: [Atherosclerotic heart disease of [place] coronary artery without angina pectoris] Onset: 2 08-31-2021 Chronic Deficiency and other anemia (20 sources) Iron deficiency anemia; Translations: [Iron deficiency anemia, unspecified] 08-31-2021 Episodic Deficiency and other anemia (15 sources) Chronic anemia; Translations: [Anemia, unspecified] 12-24-2024 [...] malabsorption; 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] Onset: Chronic Open wounds of extremities (3 sources) [...] joint] 03-20-2025 Chronic Other connective tissue disease (11 sources) History of hemiarthroplasty of right hip; [...] region] 02-25-2025 Episodic Other connective tissue disease (6 sources) Trochanteric bursitis of left hip; Translations: [Trochanteric bursitis, left hip] 02-25-2025 Episodic Other diseases of kidney and ureters (19 sources) Secondary hyperparathyroidism; Translations: [Secondary hyperparathyroidism of [...] [Constipation, unspecified] 08-31-2021 Episodic Other gastrointestinal disorders (14 sources) Occult blood in stools; Translations: [Other fecal abnormalities] 01-03-2025 Episodic Other injuries and conditions due to external causes (4 sources) History of fall; Translations: [History of falling] Episodic Other lower respiratory disease (4 sources) Dyspnea; Translations: [Other forms of dyspnea] Episodic Other lower respiratory disease (4 sources) Snoring; Translations: [Snoring] 07-09-2024 Episodic Other lower respiratory disease (4 sources) Hypoxia; Translations: [Hypoxemia] 07-09-2024 Episodic Other [...] Translations: [Body mass index 33.0-33.9, adult] Onset: 0 Chronic Other nutritional; endocrine; and metabolic disorders [...] Episodic Other nutritional; endocrine; and metabolic disorders (8 sources) H/O: thyroid disorder; Translations: [Personal history [...] [Other specified health status] Onset: 3 Episodic Residual codes; unclassified (2 sources) Not getting enough sleep; Translations: [Insomnia, unspecified] 07-07-2025 Episodic Screening and history of mental health [...] COVID-19] Onset: 2 Unclassified (1 source) A [facility] screening has identified you as FRAIL [...] Four Ways to Beat the Frailty Risk [email or web address]/wellness- [email or web address]-prevention/stay-stro sm-rnpx-pong-to-beat-the -fra ilty-risk 12-27-2024 Unclassified (2 sources) Other persistent atrial fibrillation; Translations: [Other persistent atrial fibrillation] Onset: 4 Past or Other Problems Problem Classification Problem [...] 12-28-2017 Episodic Other aftercare (1 source) 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) drug therapy; Translations: [[facility] CURRENT DRUG THERAPY] Onset: 03-09-2022 Episodic Other [...] Test Name Value Interpretation Reference Range Facility Laboratory - Chemistry and C hemistry - challengeOrdered By: Yas Linda on 07-01-2025 Free T4 [Mass/Vol] 0.90 ng/dL 0.76-1.46 [facility] TSH Qn 12.678 m[IU]/L High 0.358-3.740 [facility] No Panel InformationOrdered By: Yas Linda on 07-01-2025 Total Triiodothyronine 62 ng/dL Abnormal 71-180 [facility] Comment on above: Performed at: [facility] [employer] [address] [id number] Director: Nathan Munoz PhD, Phone: [phone] 36on 06-26-2025 36 Thought I had sent a message to someone. BP's look good, continue current medication regimen. Thanks [facility] 36 Pt calling wondering about bps they are in media [facility] Telephoneon 06-26-2025 Telephone [id number] Delano Ren 1940 M Date Provider Department Center 06/26/2025 CALDERON PARKER CARD [facility] Family History Problem Relation Age of Onset Diabetes Mother Heart disease Father Glaucoma Brother Diabetes Maternal Grandmother Clotting disorder Other Family Status - Relation Status Age at Mother Father Brother Maternal Grandmother Other [facility] Orders Onlyon 06-24-2025 Orders Only [id number] Delano Ren 1940 M Date Provider Department Center 06/24/2025 TRANG LOPEZ [facility] Family History Problem Relation Age of Onset Diabetes Mother Heart disease Father Glaucoma Brother Diabetes Maternal Grandmother Clotting disorder Other Family Status - Relation Status Age at Mother Father Brother Maternal Grandmother Other [facility] 36on 06-06-2025 36 Enrrique Mckeon, JOSSIE Mahmood MA Please have him increase his isordil and hydralazine to TID. Continue to monitor BP 2 hours after medications. Let us know his readings in 2-3 weeks. Thank you! Previous Messages Psychology Physician Notice: Other - Scan on 06/04/2025 10:32 AM: bp log 06/04/25 Advised of Meera Snell recommendations. verbalized understanding and agreed with plan of care Normal [facility] Orders Onlyon 06-06-2025 Orders Only [id number] RenDelano guzman Xochilt 1940 M Date Provider Department Center 06/06/2025 ENRRIQUE TAVAREZ CARD [facility] Family History Problem Relation Age of Onset Diabetes Mother Heart disease Father Glaucoma Brother Diabetes Maternal Grandmother Clotting disorder Other Family Status - Relation Status Age at Mother Father Brother Maternal Grandmother Other Normal [facility] ERYTHROPOETIN (EPO), SERUMon 06-02-2025 ERYTHROPOETIN (EPO), SERUM 22 m[iU]/mL 2.6 - 18.5 m[iU]/mL [facility] Comment on above: I Love QC el DxI 800 Immunoassay System Values obtained with different assay methods or kits cannot be used interchangeably. Results cannot be interpreted as absolute evidence of the presence or absence of malignant disease. Performed at: [place] [id number] Instructor Dramatic Arts: Nathan Munoz PhD, Phone: [phone] [facility] Albumin [Mass/volume] in Ser um or Plasma by Bromocresol green (BCG) dye binding methoOrdered By: Chivo Keller on 05-30-2025 Albumin BCG dye [Mass/Vol] 4.2 g/dL 3.5-5.7 [facility] CARCINOEMBRYONIC ANTIGENon 0 05-30-2025 Interpretation and review of laboratory results Abnormal [facility] CBC W Auto Differential pane l (Bld)on 05-30-2025 Basophils (Bld) [#/Vol] 0 10*3/uL 0.0 - 0.2 10*3/uL [facility] Basophils/100 WBC Manual cnt (Syn fld) 0.4 % . [facility] Eosinophils (Bld) [#/Vol] 0.2 10*3/uL 0. 0 - 0.45 10*3/uL [facility] Eosinophils/100 WBC Manual cnt (Syn fld) 2.2 % . [facility] Erythrocyte distribution width (RBC) [Ratio] 14.7 % 12.0 - 14.8 % [facility] Hematocrit (Bld) [Volume fraction] 37.5 % Low 38.8 - 50.0 % [facility] Hemoglobin (Bld) [Mass/Vol] 12.5 g/dL Low 13.0 - 17.0 g/dL [facility] Interpretation and review of laboratory results Abnormal [facility] Lymphocytes (Bld) [#/Vol] 1.4 10*3/uL 1. 00 - 4.8 10*3/uL [facility] Lymphocytes/100 WBC Manual cnt (Syn fld) 19.9 % . [facility] MCH (RBC) [Entitic mass] 31.7 pg 27. 5 - 35.2 pg [facility] MCHC (RBC) [Mass/Vol] 33.2 g/dL 32.5 - 35.6 g/dL [facility] MCV (RBC) [Entitic vol] 95.5 fL 83.5 - 101 fL [facility] Monocytes (Bld) [#/Vol] 0.7 10*3/uL 0.0 - 0.8 10*3/uL [facility] Monocytes+Macrophages/100 WBC Manual cnt (Syn fld) 9.7 % . [facility] Neutrophils (Bld) [#/Vol] 4.9 10*3/uL 1. 8 - 7.7 10*3/uL [facility] Neutrophils/100 WBC Manual cnt (Syn fld) 67.8 % . [facility] NRBC 0 /100{WBC} 0 - 0.5 /100{WBC} [facility] Platelet mean volume (Bld) [Entitic vol] 7.3 fL 6.6 - 10.1 fL [facility] Platelets (Bld) [#/Vol] 205 10*3/uL 150 - 450 10*3/uL [facility] RBC LM.HPF (Urine sed) [#/Area] 3.93 10*6/uL 3.90 - 5.60 10*6/uL [facility] WBC (Bld) [#/Vol] 7.2 10*3/uL 4.1 - 10.5 10*3/uL [facility] WBC LM.HPF (Urine sed) [#/Area] 7.2 [CFU]/mL 4.1 - 10.5 [CFU]/mL [facility] Complete Blood Count Auto Di ffOrdered By: Chivo Keller on 05-30-2025 Basophils (Bld) [#/Vol] 0.0 10*3/uL 0.0-0.2 [facility] Comment on above: Result Comment: PERF ORMED BY: [place] [address] PATHOLOGIST COST ESTIMATING ENGINEER LOGAN TAYLOR M.D. Performed By: #### R ENAL, CBC #### [address] Basophils/100 WBC (Bld) 0.4 % . [facility] Comment on above: Performed By: #### R ENAL, CBC #### [address] Eosinophils (Bld) [#/Vol] 0.2 10*3/uL 0.0-0.45 [facility] Comment on above: Performed By: #### R ENAL, CBC #### [address] Eosinophils/100 WBC (Bld) 2.2 % . [facility] Comment on above: Performed By: #### R ENAL, CBC #### [address] Erythrocyte distribution width (RBC) [Ratio] 14.7 % 12.0-14.8 [facility] Comment on above: Performed By: #### R ENAL, CBC #### [address] Hematocrit (Bld) [Volume fraction] 37.5 % Low 38.8-50.0 [facility] Comment on above: Performed By: #### R ENAL, CBC #### [address] Hemoglobin (Bld) [Mass/Vol] 12.5 g/dL Low 13.0-17.0 [facility] Comment on above: Performed By: #### R ENAL, CBC #### [place] [address] [place] Lymphocytes (Bld) [#/Vol] 1.4 10*3/uL 1.00-4.8 [facility] Comment on above: Performed By: #### R ENAL, CBC #### [facility] [address] Lymphocytes/100 WBC (Bld) 19.9 % . [facility] Comment on above: Performed By: #### R ENAL, CBC #### [facility] [address] MCH (RBC) [Entitic mass] 31.7 pg 27.5-35.2 [facility] Comment on above: Performed By: #### R ENAL, CBC #### [facility] [address] MCV (RBC) [Entitic vol] 95.5 fL 83.5-101 [facility] Comment on above: Performed By: #### R ENAL, CBC #### [place] [address] [place] Monocytes (Bld) [#/Vol] 0.7 10*3/uL 0.0-0.8 [facility] Comment on above: Performed By: #### R ENAL, CBC #### [facility] [address] [place] [address] [place] Monocytes/100 WBC (Bld) 9.7 % . [facility] Comment on above: Performed By: #### R ENAL, CBC #### [facility] [address] [place] [address] [place] Neutrophils (Bld) [#/Vol] 4.9 10*3/uL 1.8-7.7 [facility] Comment on above: Performed By: #### R ENAL, CBC #### [facility] [address] [place] [address] [place] Neutrophils/100 WBC (Bld) 67.8 % . [facility] Comment on above: Performed By: #### R ENAL, CBC #### [facility] [address] [place] [address] Platelet mean volume (Bld) [Entitic vol] 7.3 fL 6.6-10.1 [facility] Comment on above: Performed By: #### R ENAL, CBC #### [address] Platelets (Bld) [#/Vol] 205 10*3/uL 150-450 [facility] Comment on above: Performed By: #### R ENAL, CBC #### [address] RBC (Bld) [#/Vol] 3.93 10*6/uL 3.90-5.60 [facility] Comment on above: Performed By: #### R ENAL, CBC #### [address] WBC (Bld) [#/Vol] 7.2 10*3/uL 4.1-10.5 [facility] Comment on above: Performed By: #### R ENAL, CBC #### [address] Complete Blood Count Auto Di ffon 05-30-2025 Mean Corpuscular HGB Conc 33.2 g/dL Normal 32.5-35.6 [facility] Comment on above: Performed By: #### R ADEEL, CBC #### [address] NRBC% 0.0 /100{WBC} Normal 0-0.5 [facility] Comment on above: Performed By: #### R ENAL, CBC #### [address] White Blood Count 7.2 [CFU]/mL Normal 4.1-10.5 [facility] Comment on above: Performed By: #### R ENAL, CBC #### [address] Comprehensive Metabolic Pane vijay 05-30-2025 Albumin [Mass/Vol] 4.2 g/dL Normal 3.5-5.7 [facility] Comment on above: Performed By: #### R ENAL, CBC #### [facility] [address] [place] [address] Creatinine Clr Calc Pharmacy 26.38 Normal [facility] Comment on above: Performed By: #### R ADEEL, CBC #### [address] GFR/1.73 sq M.predicted MDRD (S/P/Bld) [Vol rate/Area] 28.071 mL/min/{1.73_m2} Normal [facility] Comment on above: Performed By: #### R ADEEL, CBC #### [address] Comprehensive Metabolic Pane lOrdered By: Chivo Keller on 05-30-2025 Albumin/Globulin [Mass ratio] 1.8 {ratio} [facility] Comment on above: Performed By: #### R ADEEL, CBC #### [address] ALP [Catalytic activity/Vol] 124 U/L High 34-104 [facility] Comment on above: Performed By: #### R ADEEL, CBC #### [address] ALT [Catalytic activity/Vol] 15 U/L 7-52 [facility] Comment on above: Performed By: #### R ADEEL, CBC #### [address] Anion gap [Moles/Vol] 10.2 mmol/L 6.0-15.0 [facility] Comment on above: Performed By: #### R ADEEL, CBC #### [address] AST [Catalytic activity/Vol] 17 U/L 13-39 [facility] Comment on above: Performed By: #### R ADEEL, CBC #### [address] Bilirubin [Mass/Vol] 0.6 mg/dL 0.3-1.0 [facility] Comment on above: Performed By: #### R ENAL, CBC #### [facility] [address] Calcium [Mass/Vol] 8.6 mg/dL 8.6-10.3 [facility] Comment on above: Performed By: #### R ENAL, CBC #### [facility] [address] Chloride [Moles/Vol] 101 mmol/L 98-107 [facility] Comment on above: Performed By: #### R ENAL, CBC #### [facility] [address] CO2 [Moles/Vol] 34.0 mmol/L High 21.0-31.0 [facility] Comment on above: Performed By: #### R ENAL, CBC #### [facility] [address] Creatinine [Mass/Vol] 2.26 mg/dL High 0.70-1.30 [facility] Comment on above: Performed By: #### R ENAL, CBC #### [facility] [address] Globulin (S) [Mass/Vol] 2.3 g/dL [facility] Comment on above: Performed By: #### R ENAL, CBC #### [facility] [address] Glucose [Mass/Vol] 106 mg/dL High 70-100 [facility] Comment on above: Result Comment: [place] om Glucose Reference Range is dependent on time and content of last meal. Glucose of more than 200 mg/dL in a nonstressed, ambulatory subject supports the diagnosis of Diabetes Mellitus. ADA recommended reference range Performed By: #### R ENAL, CBC #### [facility] [address] ADA recommended refe rence rangeRandom Glucose Reference Range is dependent on time and content of last meal. Glucose of more than 200 mg/dL in a nonstressed, ambulatory subject supports the diagnosis of Diabetes Mellitus. Potassium [Moles/Vol] 4.2 mmol/L 3.5-5.1 [facility] Comment on above: Performed By: #### R ENAL, CBC #### [facility] [address] Protein [Mass/Vol] 6.5 g/dL 6.4-8.9 [facility] Comment on above: Performed By: #### R ENAL, CBC #### [address] Sodium [Moles/Vol] 141 mmol/L 136-145 [facility] Comment on above: Performed By: #### R ENAL, CBC #### [address] Urea nitrogen [Mass/Vol] 44 mg/dL High 7-25 [facility] Comment on above: Performed By: #### R ENAL, CBC #### [address] Erythropoetin (EPO), Serumon 05-30-2025 Erythropoetin (EPO), Serum 22.0 m[iU]/mL Normal 2.6-18.5 [facility] Comment on above: Result Comment: DNA Guide DxI 800 Immunoassay System Values obtained with different assay methods or kits cannot be used interchangeably. Results cannot be interpreted as absolute evidence of the presence or absence of malignant disease. Performed at: [facility] [address] [id number] Instructor Dramatic Arts: Nathan Munoz PhD, Phone: [phone] PERFORMED BY: [place] [address] PATHOLOGIST COST ESTIMATING ENGINEER LOGAN TAYLOR M.D. Performed By: #### F E and TIBC, CMP, TONY, CBC, CEA, [id number] ####[facility]#### EPO ####[facility] , FerritinOrdered By: Chivo Keller on 05-30-2025 Ferritin [Mass/Vol] 236.2 ng/mL 23.9-336.2 [facility] Comment on above: Performed By: #### R ADEEL, CBC #### [address] Folate [Mass/volume] in Seru m or PlasmaOrdered By: Chivo Keller on 05-30-2025 Folate [Mass/Vol] ng/mL >5.9 [facility] Comment on above: Folate reference ran ge: >5.9 ng/mlThe WHO technical consultation on folate and vitamin [id number] has determined that folate concentrations lessthan 4 ng/ml are considered deficient. Iron and TIBC Profileon 05-16 % Iron Saturation 28.1 % Normal 20-50 [facility] Comment on above: Performed By: #### R ADEEL, CBC #### [address] Total Iron Binding Capacity 270 ug/dL Normal 255-450 [facility] Comment on above: Performed By: #### R ADEEL, CBC #### [address] Iron and TIBC ProfileOrdered By: Chivo Keller on 05-30-2025 Iron [Mass/Vol] 76 ug/dL 50-212 [facility] Comment on above: Performed By: #### Kavon DENIS, CBC #### [address] Transferrin [Mass/Vol] 193 mg/dL Low 203-362 [facility] Comment on above: Performed By: #### R ADEEL, CBC #### [address] Leukocytes [#/volume] correc bonnie for nucleated erythrocytes in Blood by Automated counOrdered By: Chivo Keller on 05-30-2025 WBC corrected for nucl RBC Auto (Bld) [#/Vol] 7.2 10*3/uL 4.1-10.5 [facility] MCHC Auto (RBC) [Mass/Vol]Or dered By: Chivo Keller on 05-30-2025 MCHC (RBC) [Mass/Vol] 33.2 g/dL 32.5-35.6 [facility] No Panel InformationOrdered By: Chivo Keller on 05-30-2025 Estimated GFR (CKD-EPI) 28.071 mL/Min [facility] Creatinine Clearance (Chem 26.38 [facility] Nucleated erythrocytes [Pres ence] in Blood by Automated countOrdered By: Chivo Keller on 05-30-2025 Nucleated RBC Auto Ql (Bld) 0.0 /100{WBC} 0-0.5 [facility] Serum or plasma erythropoiet in (EPO) measurement (units/volume)Ordered By: Chivo Keller on 05-30-2025 Erythropoietin (EPO) Qn 22.0 mIU/mL High 2.6-18.5 [facility] Comment on above: I Love QC el DxI 800 Immunoassay SystemValues obtained with different assay methods or kits cannotbe used interchangeably. Results cannot be interpreted asabsolute evidence of the presence or absence of malignantdisease.Performed at: [place] [id number] Director: Nathan Munoz PhD, Phone: [phone] Serum or plasma iron binding capacity measurement (mass/volume)Ordered By: Chivo Keller on 05-30-2025 Iron binding capacity [Mass/Vol] 270 ug/dL 255-450 [facility] Serum or plasma iron saturat ion measurement (mass fraction)Ordered By: Chivo Keller on 05-30-2025 Iron saturation [Mass fraction] 28.1 % 20-50 [facility] Vit. B12/Folate ProfileOrder ed By: Chivo Keller on 05-30-2025 Cobalamin (Vitamin B12) [Mass/Vol] 433 pg/mL 180-914 [facility] Comment on above: Performed By: #### F E and TIBC, CMP, TONY, CBC, CEA, [id number] ####[facility] [address]#### EPO ####[facility] , Vit. B12/Folate Profileon Folate >49.6 Normal >5.9 [facility] Comment on above: Result Comment: Echo te reference range: >5.9 ng/ml The WHO technical consultation on folate and vitamin b12 deficiencies has determined that folate concentrations less than 4 ng/ml are considered deficient. PERFORMED BY: [facility] [address] [place] [id number] PATHOLOGIST COST ESTIMATING ENGINEER LOGAN TAYLOR M.D. Performed By: #### F E and TIBC, CMP, TONY, CBC, CEA, [id number] ####[facility] [address] [place] [id number] [facility]#### EPO ####[facility] , Office Visiton 05-27-2025 Follow-up visit [id number] Delano Ren 1940 M Date Provider Department Center 05/27/2025 TRANG LOPEZ CARD [facility] Family History Problem Relation Age of Onset Diabetes Mother Heart disease Father Glaucoma Brother Diabetes Maternal Grandmother Clotting disorder Other Family Status - Relation Status Age at Mother Father Brother Maternal Grandmother Other Level of Service:[address] [place] OFFICE/OUTPATIENT ESTABLISHED LOW MDM 20 MIN Normal [facility] Orders Onlyon 05-22-2025 Orders Only [id number] Delano Ren 1940 Date Provider Department Center 05/22/2025 TIEN RANGEL HVC CARD [facility] Family History Problem Relation Age of Onset Diabetes Mother Heart disease Father Glaucoma Brother Diabetes Maternal Grandmother Clotting disorder Other Family Status - Relation Status Age at Mother Father Brother Maternal Grandmother Other Normal [facility] Orders Only [id number] Delano Ren 1940 M Date Provider Department Center 05/22/2025 TRANG LOPEZ C CARD [facility] Family History Problem Relation Age of Onset Diabetes Mother Heart disease Father Glaucoma Brother Diabetes Maternal Grandmother Clotting disorder Other Family Status - Relation Status Age at Mother Father Brother Maternal Grandmother Other [facility] Documentationon 04-25-2025 Documentation [id number] Delano Ren 1940 M Date Provider Department Center 04/25/2025 FERMIN CANCHOLA [facility] Family History Problem Relation Age of Onset Diabetes Mother Heart disease Father Glaucoma Brother Diabetes Maternal Grandmother Clotting disorder Other Family Status - Relation Status Age at Mother Father Brother Maternal Grandmother Other Reason for Visit and Comments: Congestive Heart Failure [127] Normal [facility] Office Visiton 04-14-2025 Follow-up visit [id number] Delano Ren 1940 M Date Provider Department Center 04/14/2025 ADAN YOUSIF DARWIN [facility] Family History Problem Relation Age of Onset Diabetes Mother Heart disease Father Glaucoma Brother Diabetes Maternal Grandmother Clotting disorder Other Family Status - Relation Status Age at Mother Father Brother Maternal Grandmother Other Level of Service:[address] [place] OFFICE/OUTPATIENT ESTABLISHED MOD MDM 30 MIN [facility] Erythrocyte distribution wid th Auto (RBC) [Ratio]Ordered By: Zahida Flowers on 04-08-2025 Erythrocyte distribution width (RBC) [Ratio] 14.0 % 11.0-15.0 [facility] Estimated glomerular filtrat ion rate (GFR) non- AmericanOrdered By: Zahida Flowers on 04-08-2025 GFR/1.73 sq M.predicted among non-blacks MDRD (S/P/Bld) [Vol rate/Area] 29 mL/min/{1.73_m2} Low >=60 mL/min/1.73 m 2 [facility] Hematocrit Auto (Bld) [Volum e fraction]Ordered By: Zahida Flowers on 04-08-2025 Hematocrit (Bld) [Volume fraction] 39.2 % Low 42.0-54.0 [facility] Hemoglobin [Mass/volume] in BloodOrdered By: Zahida Flowers on 04-08-2025 Hemoglobin (Bld) [Mass/Vol] 12.9 g/dL Low 14.0-18.0 [facility] Iron binding capacity [Mass/ volume] in Serum or PlasmaOrdered By: Zahida Flowers on 04-08-2025 Iron binding capacity [Mass/Vol] 236.0 ug/dL Low 250.0-450.0 [facility] Iron saturation [Mass Fracti on] in Serum or PlasmaOrdered By: Zahida Flowers on 04-08-2025 Iron saturation [Mass fraction] 26.7 % [facility] Laboratory - Chemistry and C hemistry - challengeOrdered By: Zahida Flowers on 04-08-2025 Albumin [Mass/Vol] 3.6 g/dL 3.4-5.0 [facility] Calcium [Mass/Vol] 9.4 mg/dL 8.5-10.1 [facility] Chloride [Moles/Vol] 102 mmol/L 98-107 [facility] CO2 [Moles/Vol] 34.4 mmol/L High 21.0-32.0 [facility] Creatinine [Mass/Vol] 2.17 mg/dL High 0.70-1.30 [facility] Ferritin [Mass/Vol] 432.0 ng/mL High 26.0-388.0 [facility] GFR/1.73 sq M.predicted MDRD (S/P/Bld) [Vol rate/Area] 36 mL/min/{1.73_m2} Low >=60 mL/min/1.73 m 2 [facility] Glucose [Mass/Vol] 97 mg/dL 74-106 [facility] Iron [Mass/Vol] 63.0 ug/dL Low 65.0-175.0 [facility] Magnesium [Mass/Vol] 2.4 mg/dL 1.8-2.4 [facility] Potassium [Moles/Vol] 4.2 mmol/L 3.5-5.1 [facility] Sodium [Moles/Vol] 142 mmol/L 136-145 [facility] Urate [Mass/Vol] 7.7 mg/dL High 3.5-7.2 [facility] Urea nitrogen [Mass/Vol] 46.0 mg/dL High 7.0-18.0 [facility] Urea nitrogen/Creatinine [Mass ratio] 21.2 mg/mg [facility] Laboratory - Chemistry and C hemistry - challengeOrdered By: Yas Linda on 04-08-2025 Free T4 [Mass/Vol] 1.00 ng/dL 0.76-1.46 [facility] TSH Qn 12.655 m[IU]/L High 0.358-3.740 [facility] Laboratory - UrinalysisOrder ed By: Zahida Flowers on 04-08-2025 Protein (U) [Mass/Vol] 24.0 mg/dL High <=11.9 [facility] Leukocytes [#/volume] correc bonnie for nucleated erythrocytes in Blood by Automated counOrdered By: Zahida Flowers on 04-08-2025 WBC corrected for nucl RBC Auto (Bld) [#/Vol] 7.2 10 3/uL 4.0-11.0 [facility] MCH Auto (RBC) [Entitic mass ]Ordered By: Zahida Flowers on 04-08-2025 MCH (RBC) [Entitic mass] 31.5 pg 25.9-34.0 [facility] MCHC Auto (RBC) [Mass/Vol]Or dered By: Zahida Flowers on 04-08-2025 MCHC (RBC) [Mass/Vol] 32.9 g/dL 29.9-35.2 [facility] MCV Auto (RBC) [Entitic vol] Ordered By: Zahida Flowers on 04-08-2025 MCV (RBC) [Entitic vol] 95.8 fL High 80.0-94.0 [facility] No Panel InformationOrdered By: Zahida Flowers on 04-08-2025 25-Hydroxy Vitamin D Total 89.1 ng/mL [facility] Comment on above: <20 ng/mL Vit D defi cient20-<30 ng/mL Vit D [id number] ng/mL Vit D sufficient>100 ng/mL Potential Toxicity Parathyroid Hormone (Intact) 59 pg/mL 15-65 [facility] Comment on above: Performed at: - [place] [address] [id number] Director: Nathan Munoz PhD, Phone: [phone] Phosphorus Level 3.6 mg/dL 2.6-4.7 [facility] Urine Random Creatinine <13.00 mg/dL Low 20.0 0-300.0 0 [facility] No Panel InformationOrdered By: Yas Linda on 04-08-2025 Total Triiodothyronine 70 ng/dL Abnormal 71-180 [facility] Comment on above: Performed at: [address] [id number] Director: Nathan Munoz PhD, Phone: [phone] Platelet mean volume Auto (B ld) [Entitic vol]Ordered By: Zahida Flowers on 04-08-2025 Platelet mean volume (Bld) [Entitic vol] 8.4 fL Low 9.5-13.5 [facility] Platelets Auto (Bld) [#/Vol] Ordered By: Zahida Flowers on 04-08-2025 Platelets (Bld) [#/Vol] 196 10 3/uL 150-450 [facility] RBC Auto (Bld) [#/Vol]Ordere d By: Zahida Flowers on 04-08-2025 RBC (Bld) [#/Vol] 4.09 10 6/uL Low 4.70-6.10 [facility] Serum or plasma anion gap de terminationOrdered By: Zaihda Flowers on 04-08-2025 Anion gap [Moles/Vol] 9.8 mmol/L [facility] 36on 03-06-2025 36 If he is feeling okay (no dizziness/LH), would like him to increase his hydralazine to 25mg BID. He can use up his 10mg tablets by taking 2 tablets (equally 20mg) until this is out then start the hydralazine 25mg BID. Thanks! Normal [facility] [place] Orders Onlyon 03-06-2025 Orders Only [id number] Delano Ren 1940 M Date Provider Department Center 03/06/2025 Idalmis-ENRRIQUE MCKEON [facility] CARD [facility] HeartVAS Family History Problem Relation Age of Onset Diabetes Mother Heart disease Father Glaucoma Brother Diabetes Maternal Grandmother Clotting disorder Other Family Status - Relation Status Age at Mother Father Brother Maternal Grandmother Other Normal [facility] [place] Basophils Auto (Bld) [#/Vol] Ordered By: Chivo Keller on 02-28-2025 Basophils (Bld) [#/Vol] Automated basoph il count 0.0-0.2 [facility] Basophils [#/volume] in Bloo d by Automated countOrdered By: Chivo Keller on 02-28-2025 Basophils (Bld) [#/Vol] 0.0 10*3/uL Normal 0.0-0.2 [facility] Comment on above: Result Comment: PERF ORMED BY: [facility] [address] [place] [address] PATHOLOGIST COST ESTIMATING ENGINEER KRISTEL LU M.D. Performed By: #### R ENAL, CBC #### [facility] [address] Basophils/100 WBC Auto (Bld) Ordered By: Chivo Keller on 02-28-2025 Basophils/100 WBC (Bld) Automated basophil % . [facility] Basophils/100 leukocytes in Blood by Automated countOrdered By: Chivo Keller on 02-28-2025 Basophils/100 WBC (Bld) 0.2 % Normal . [facility] Comment on above: Performed By: #### R ENAL, CBC #### [facility] [address] CBC W Auto Differential pane l (Bld)on 02-28-2025 Basophils (Bld) [#/Vol] 0 10*3/uL 0.0 - 0.2 10*3/uL [facility] Basophils/100 WBC Manual cnt (Syn fld) 0.2 % . [facility] Eosinophils (Bld) [#/Vol] 0.1 10*3/uL 0. 0 - 0.45 10*3/uL [facility] Eosinophils/100 WBC Manual cnt (Syn fld) 0.9 % . [facility] Erythrocyte distribution width (RBC) [Ratio] 15.5 % High 12.0 - 14.8 % [facility] Hematocrit (Bld) [Volume fraction] 33.5 % Low 38.8 - 50.0 % [facility] Hemoglobin (Bld) [Mass/Vol] 11.2 g/dL Low 13.0 - 17.0 g/dL [facility] Interpretation and review of laboratory results Abnormal [facility] Lymphocytes (Bld) [#/Vol] 1.1 10*3/uL 1. 00 - 4.8 10*3/uL [facility] Lymphocytes/100 WBC Manual cnt (Syn fld) 15.1 % . [facility] MCH (RBC) [Entitic mass] 31.6 pg 27. 5 - 35.2 pg [facility] MCHC (RBC) [Mass/Vol] 33.5 g/dL 32.5 - 35.6 g/dL [facility] MCV (RBC) [Entitic vol] 94.3 fL 83.5 - 101 fL [facility] Monocytes (Bld) [#/Vol] 0.5 10*3/uL 0.0 - 0.8 10*3/uL [facility] Monocytes+Macrophages/100 WBC Manual cnt (Syn fld) 6.9 % . [facility] Neutrophils (Bld) [#/Vol] 5.4 10*3/uL 1. 8 - 7.7 10*3/uL [facility] Neutrophils/100 WBC Manual cnt (Syn fld) 76.9 % . [facility] NRBC 0 /100{WBC} 0 - 0.5 /100{WBC} [facility] Platelet mean volume (Bld) [Entitic vol] 7.2 fL 6.6 - 10.1 fL [facility] Platelets (Bld) [#/Vol] 232 10*3/uL 150 - 450 10*3/uL [facility] RBC LM.HPF (Urine sed) [#/Area] 3.55 10*6/uL Low 3.90 - 5.60 10*6/uL [facility] WBC (Bld) [#/Vol] 7 10*3/uL 4.1 - 10.5 10*3/uL [facility] WBC LM.HPF (Urine sed) [#/Area] 7 10*3/uL 4.1 - 10.5 10*3/uL [facility] Complete Blood Count Auto Di ffon 02-28-2025 Mean Corpuscular HGB Conc 33.5 g/dL Normal 32.5-35.6 [facility] Comment on above: Performed By: #### R ENAL, CBC #### [address] NRBC% 0.0 /100{WBC} Normal 0-0.5 [facility] Comment on above: Performed By: #### R ENAL, CBC #### [address] Eosinophils Auto (Bld) [#/Vo l]Ordered By: Chivo Keller on 02-28-2025 Eosinophils (Bld) [#/Vol] Automated eosi nophil count 0.0-0.45 [facility] Eosinophils [#/volume] in Bl ood by Automated countOrdered By: Chivo Keller on 02-28-2025 Eosinophils (Bld) [#/Vol] 0.1 10*3/uL Normal 0.0-0.45 [facility] Comment on above: Performed By: #### R ENAL, CBC #### [place] [address] [place] Eosinophils/100 WBC Auto (Bl d)Ordered By: Chivo Keller on 02-28-2025 Eosinophils/100 WBC (Bld) Automated eosi nophil % . [facility] Eosinophils/100 leukocytes i n Blood by Automated countOrdered By: Chivo Keller on 02-28-2025 Eosinophils/100 WBC (Bld) 0.9 % Normal . [facility] Comment on above: Performed By: #### R ENAL, CBC #### [address] Erythrocyte distribution wid th Auto (RBC) [Ratio]Ordered By: Chivo Keller on 02-28-2025 Erythrocyte distribution width (RBC) [Ratio] Erythrocyte distribution width [Ratio] by Automated count High 12.0-14.8 [facility] Erythrocyte distribution wid th [Ratio] by Automated countOrdered By: Chivo Keller on 02-28-2025 Erythrocyte distribution width (RBC) [Ratio] 15.5 % High 12.0-14.8 [facility] Comment on above: Performed By: #### R ENAL, CBC #### [place] [address] [place] Erythrocytes [#/volume] in B lood by Automated countOrdered By: Chivo Keller on 02-28-2025 RBC (Bld) [#/Vol] 3.55 10*6/uL Low 3.90-5.60 [facility] Comment on above: Performed By: #### R ENAL, CBC #### [address] Hematocrit Auto (Bld) [Volum e fraction]Ordered By: Chivo Keller on 02-28-2025 Hematocrit (Bld) [Volume fraction] Hematocrit [Volume Fraction] of Blood by Automated count Low 38.8-50.0 [facility] Hematocrit [Volume Fraction] of Blood by Automated countOrdered By: Chivo Keller on 02-28-2025 Hematocrit (Bld) [Volume fraction] 33.5 % Low 38.8-50.0 [facility] Comment on above: Performed By: #### R ENAL, CBC #### [address] Hemoglobin [Mass/volume] in BloodOrdered By: Chivo Keller on 02-28-2025 Hemoglobin (Bld) [Mass/Vol] Hemoglobin [Mass/volume] in Blood Low 13.0-17.0 [facility] Hemoglobin (Bld) [Mass/Vol] 11.2 g/dL Low 13.0-17.0 [facility] Comment on above: Performed By: #### R ENAL, CBC #### [address] Leukocytes [#/volume] correc bonnie for nucleated erythrocytes in Blood by Automated counOrdered By: Chivo Keller on 02-28-2025 WBC corrected for nucl RBC Auto (Bld) [#/Vol] Leukocytes [#/volume] corrected for nucleated erythrocytes in Blood by Automated coun 4.1-10.5 [facility] WBC corrected for nucl RBC Auto (Bld) [#/Vol] 7.0 10*3/uL 4.1-10.5 [facility] Leukocytes [#/volume] in Blo od by Automated countOrdered By: Chivo Keller on 02-28-2025 WBC (Bld) [#/Vol] 7.0 10*3/uL Normal 4.1-10.5 [facility] Comment on above: Performed By: #### R ENAL, CBC #### [facility] [address] [place] [address] Lymphocytes Auto (Bld) [#/Vo l]Ordered By: Chivo Keller on 02-28-2025 Lymphocytes (Bld) [#/Vol] Lymphocytes [#/volume] in Blood by Automated count 1.00-4.8 [facility] Lymphocytes [#/volume] in Bl ood by Automated countOrdered By: Chivo Keller on 02-28-2025 Lymphocytes (Bld) [#/Vol] 1.1 10*3/uL Normal 1.00-4.8 [facility] Comment on above: Performed By: #### R ENAL, CBC #### [address] Lymphocytes/100 WBC Auto (Bl d)Ordered By: Chivo Keller on 02-28-2025 Lymphocytes/100 WBC (Bld) Lymphocytes/10 0 leukocytes in Blood by Automated count . [facility] Lymphocytes/100 leukocytes i n Blood by Automated countOrdered By: Chivo Keller on 02-28-2025 Lymphocytes/100 WBC (Bld) 15.1 % Normal . [facility] Comment on above: Performed By: #### R ENAL, CBC #### [address] MCH Auto (RBC) [Entitic mass ]Ordered By: Chivo Keller on 02-28-2025 MCH (RBC) [Entitic mass] MCH [Entitic ma ss] by Automated count 27.5-35.2 [facility] MCH [Entitic mass] by Automa bonnie countOrdered By: Chivo Keller on 02-28-2025 MCH (RBC) [Entitic mass] 31.6 pg Normal 27.5-35.2 [facility] Comment on above: Performed By: #### R ENAL, CBC #### [address] MCHC Auto (RBC) [Mass/Vol]Or dered By: Chivo Keller on 02-28-2025 MCHC (RBC) [Mass/Vol] MCHC [Mass/volume] by Automated count 32.5-35.6 [facility] MCHC (RBC) [Mass/Vol] 33.5 g/dL 32.5-35.6 [facility] MCV Auto (RBC) [Entitic vol] Ordered By: Chivo Keller on 02-28-2025 MCV (RBC) [Entitic vol] MCV [Entitic vol ume] by Automated count 83.5-101 [facility] MCV [Entitic volume] by Auto mated countOrdered By: Chivo Keller on 02-28-2025 MCV (RBC) [Entitic vol] 94.3 fL Normal 83.5-101 [facility] Comment on above: Performed By: #### R ENAL, CBC #### [address] Monocytes Auto (Bld) [#/Vol] Ordered By: Chivo Keller on 02-28-2025 Monocytes (Bld) [#/Vol] Automated blood monocyte count 0.0-0.8 [facility] Monocytes [#/volume] in Bloo d by Automated countOrdered By: Chivo Keller on 02-28-2025 Monocytes (Bld) [#/Vol] 0.5 10*3/uL Normal 0.0-0.8 [facility] Comment on above: Performed By: #### R ENAL, CBC #### [facility] [address] [place] [address] [place] Monocytes/100 WBC Auto (Bld) Ordered By: Chivo Keller on 02-28-2025 Monocytes/100 WBC (Bld) Automated monocyte % . [facility] Monocytes/100 leukocytes in Blood by Automated countOrdered By: Chvio Keller on 02-28-2025 Monocytes/100 WBC (Bld) 6.9 % Normal . [facility] Comment on above: Performed By: #### R ENAL, CBC #### [place] [address] [place] Neutrophils Auto (Bld) [#/Vo l]Ordered By: Chivo Keller on 02-28-2025 Neutrophils (Bld) [#/Vol] Neutrophils [#/volume] in Blood by Automated count 1.8-7.7 [facility] Neutrophils [#/volume] in Bl ood by Automated countOrdered By: Chivo Keller on 02-28-2025 Neutrophils (Bld) [#/Vol] 5.4 10*3/uL Normal 1.8-7.7 [facility] Comment on above: Performed By: #### R ENAL, CBC #### [facility] [address] [place] [address] Neutrophils/100 WBC Auto (Bl d)Ordered By: Chivo Keller on 02-28-2025 Neutrophils/100 WBC (Bld) Automated neut rophil % . [facility] Neutrophils/100 leukocytes i n Blood by Automated countOrdered By: Chivo Keller on 02-28-2025 Neutrophils/100 WBC (Bld) 76.9 % Normal . [facility] Comment on above: Performed By: #### R ENAL, CBC #### [facility] [address] [place] [address] Nucleated erythrocytes [Pres ence] in Blood by Automated countOrdered By: Chivo Keller on 02-28-2025 Nucleated RBC Auto Ql (Bld) Nucleated erythrocytes [Presence] in Blood by Automated count 0-0.5 [facility] Nucleated RBC Auto Ql (Bld) 0.0 /100{WBC} 0-0.5 [facility] Platelet mean volume Auto (B ld) [Entitic vol]Ordered By: Chivo Keller on 02-28-2025 Platelet mean volume (Bld) [Entitic vol] Platelet mean volume [Entitic volume] in Blood by Automated count 6.6-10.1 [facility] Platelet mean volume [Entiti c volume] in Blood by Automated countOrdered By: Chivo Keller on 02-28-2025 Platelet mean volume (Bld) [Entitic vol] 7.2 fL Normal 6.6-10.1 [facility] Comment on above: Performed By: #### R ENAL, CBC #### [facility] [address] [place] [id number] [facility] Platelets Auto (Bld) [#/Vol] Ordered By: Chivo Keller on 02-28-2025 Platelets (Bld) [#/Vol] Platelets [#/vol ume] in Blood by Automated count 150-450 [facility] Platelets [#/volume] in Bloo d by Automated countOrdered By: Chivo Keller on 02-28-2025 Platelets (Bld) [#/Vol] 232 10*3/uL Normal 150-450 [facility] Comment on above: Performed By: #### R ENAL, CBC #### [facility] [address] RBC Auto (Bld) [#/Vol]Ordere d By: Chivo Keller on 02-28-2025 RBC (Bld) [#/Vol] Erythrocytes [#/volume] in Blood by Automated count Low 3.90-5.60 [facility] WBC Auto (Bld) [#/Vol]Ordere d By: Chivo Keller on 02-28-2025 WBC (Bld) [#/Vol] Leukocytes [#/volume] in Blood by Automated count 4.1-10.5 [facility] ERYTHROPOETIN (EPO), SERUMon 02-25-2025 ERYTHROPOETIN (EPO), SERUM 30.4 m[iU]/mL High 2.6 - 18.5 m[iU]/mL [facility] Comment on above: [employer] UniC el DxI 800 Immunoassay System Values obtained with different assay methods or kits cannot be used interchangeably. Results cannot be interpreted as absolute evidence of the presence or absence of malignant disease. Performed at: [facility] [address] [id number] Instructor Dramatic Arts: Nathan Munoz PhD, Phone: [phone] Interpretation and review of laboratory results Abnormal [facility] X-ray reportOrdered By: Gianni Scott on 02-25-2025 Study report [facility] XR hip BI w [id number] 02-26-20 XR hip BI w [id number] [facility] [place] [facility] [address] [place] [address] XRay Report Signed Patient: Delano Ren MR#: [id number] [birth year] : 1940 Acct:[id number] Age/Sex: 84 / M ADM Date: 02/25/25 Loc: [facility] Room: Type: [facility] Attending Dr: Walker Soria MD Copies to: [...] HIP.. Impression dictated by: Sotero Scott Jr., D.O. 02/25/2025 2:31 PM Dictation Location: [place] [address] Transcribed By: [facility] 02/25/25 1431 Dictated By: Sotero Scott Jr, DO 02/25/25 1430 Signed By: 02/25/25 1431 Normal [facility] Alanine aminotransferase [En zymatic activity/volume] in Serum or PlasmaOrdered By: Chivo Keller on 02-24-2025 ALT [Catalytic activity/Vol] Alanine aminotransferase [Enzymatic activity/volume] in Serum or Plasma [address] [place] [address] ALT [Catalytic activity/Vol] 10 U/L Normal [address] [place] [address] Comment on above: Order Comment: STAT FOR CT Performed By: #### F E and TIBC, TONY, CMP, [id number] ####[facility] [address] [place] [address] [facility] Albumin [Mass/volume] in Ser um or Plasma by Bromocresol green (BCG) dye binding methoOrdered By: Chivo Keller on 02-24-2025 Albumin BCG dye [Mass/Vol] Albumin [Mass/volume] in Serum or Plasma by Bromocresol green (BCG) dye binding metho 3.5-5.7 [facility] Albumin BCG dye [Mass/Vol] 4.1 g/dL 3.5-5.7 [facility] Alkaline phosphatase [Enzyma tic activity/volume] in Serum or PlasmaOrdered By: Chivo Keller on 02-24-2025 ALP [Catalytic activity/Vol] Alkaline phosphatase [Enzymatic activity/volume] in Serum or Plasma High 34-104 [facility] ALP [Catalytic activity/Vol] 125 U/L High 34-104 [facility] Comment on above: Order Comment: STAT FOR CT Performed By: #### F E and TIBC, TONY, CMP, [id number] ####[place] [address] [address] Aspartate aminotransferase [ Enzymatic activity/volume] in Serum or PlasmaOrdered By: Chivo Keller on 02-24-2025 AST [Catalytic activity/Vol] Aspartate aminotransferase [Enzymatic activity/volume] in Serum or Plasma 13-39 [facility] AST [Catalytic activity/Vol] 17 U/L Normal 13-39 [facility] Comment on above: Order Comment: STAT FOR CT Performed By: #### F E and TIBC, TONY, CMP, [id number] ####[place] [address] [address] Bilirubin.total [Mass/volume ] in Serum or PlasmaOrdered By: Chivo Keller on 02-24-2025 Bilirubin [Mass/Vol] Bilirubin.total [Mass/volume] in Serum or Plasma 0.3-1.0 [facility] Bilirubin [Mass/Vol] 0.5 mg/dL Normal 0.3-1.0 [facility] Comment on above: Order Comment: STAT FOR CT Performed By: #### F E and TIBC, TONY, CMP, [id number] ####[place] [address] [address] CARCINOEMBRYONIC ANTIGENon 0 02-24-2025 Interpretation and review of laboratory results Abnormal [facility] CEA ser/plasOrdered By: Samir Keller on 02-24-2025 Carcinoembryonic Ag [Mass/Vol] Serum or plasma carcinoembryonic antigen measurement (mass/volume) High 0.0-3.[address] [facility] [address] abdomen pelvis wo conon 0 02-24-2025 CT abdomen pelvis wo con [facility] Main [place] [address] [place] [id number] Scan Report Signed Patient: Delano Ren MR#: [id number] [birth year] : 1940 Acct:[id number] Age/Sex: 84 / M ADM Date: 02/24/25 Loc: Room: Type: [facility] RCR Attending Dr: Chivo Keller II DO Copies to: Chivo Keller II, DO Ordering Provider: Chivo Keller II, DO Date of Service: 02/24/25 CT/CT chest wo con: D50.9 - Iron deficiency anemia, unspecified ([id number]) CT/CT abdomen pelvis wo con: D50.9 - [...] Jr., D.O. 02/24/2025 11:32 AM Dictation Location: [place] [address] Transcribed By: [facility] 02/24/25 1132 Dictated By: Sotero Scott Jr, DO 02/24/25 1125 Signed By: 02/24/25 1132 Normal [facility] Calcium [Mass/volume] in Ser um or PlasmaOrdered By: Chivo Keller on 02-24-2025 Calcium [Mass/Vol] Calcium [Mass/volume] in Serum or Plasma 8.6-10.3 [facility] Calcium [Mass/Vol] 9.3 mg/dL Normal 8.6-10.3 [facility] Comment on above: Order Comment: STAT FOR CT Performed By: #### F E and TIBC, TONY, CMP, [id number] ####[place] [address] [place] [id number] [facility] Carbon dioxide, total [Moles /volume] in Serum or PlasmaOrdered By: Chivo Keller on 02-24-2025 CO2 [Moles/Vol] Carbon dioxide, total [Moles/volume] in Serum or Plasma High 21.0-31.0 [facility] CO2 [Moles/Vol] 31.7 mmol/L High 21.0-31.0 [facility] Comment on above: Order Comment: STAT FOR CT Performed By: #### F E and TIBC, TONY, CMP, [id number] ####[place] [address] [place] [address] [facility] Chloride [Moles/volume] in S alayna or PlasmaOrdered By: Chivo Keller on 02-24-2025 Chloride [Moles/Vol] Chloride [Moles/volume] in Serum or Plasma 98-107 [facility] Chloride [Moles/Vol] 105 mmol/L Normal 98-107 [facility] Comment on above: Order Comment: STAT FOR CT Performed By: #### F E and TIBC, TONY, CMP, [id number] ####[place] [id number] [facility] Comprehensive Metabolic Pane vijay 02-24-2025 Albumin [Mass/Vol] 4.1 g/dL Normal 3.5-5.7 [facility] Comment on above: Order Comment: STAT FOR CT Performed By: #### F E and TIBC, TONY, CMP, [id number] ####[address] Creatinine Clr Calc Pharmacy 31.32 Normal [facility] Comment on above: Order Comment: STAT FOR CT Performed By: #### F E and TIBC, TONY, CMP, [id number] ####[place] [id number] [facility] Estimated GFR 29.659 mL/Min Normal [facility] Comment on above: Order Comment: STAT FOR CT Performed By: #### F E and TIBC, TONY, CMP, [id number] ####[place] [id number] [facility] Creatinine [Mass/volume] in Serum or PlasmaOrdered By: Chivo Keller on 02-24-2025 Creatinine [Mass/Vol] Creatinine [Mass/volume] in Serum or Plasma High 0.70-1.30 [facility] Creatinine [Mass/Vol] 2.17 mg/dL High 0.70-1.30 [facility] Comment on above: Order Comment: STAT FOR CT Performed By: #### F E and TIBC, TONY, CMP, [id number] ####[place] [id number] [facility] Erythropoetin (EPO), Serumon 02-24-2025 Erythropoetin (EPO), Serum 30.4 m[iU]/mL High 2.6-18.5 [facility] Comment on above: Result Comment: [employer] DxI 800 Immunoassay System Values obtained with different assay methods or kits cannot be used interchangeably. Results cannot be interpreted as absolute evidence of the presence or absence of malignant disease. Performed at: - [address] [id number] Instructor Dramatic Arts: Nathan Munoz PhD, Phone: [phone] PERFORMED BY: [place] [address] PATHOLOGIST COST ESTIMATING ENGINEER KRISTEL LU M.D. Performed By: #### R ENAL, CBC #### [facility] [address] Ferritin [Mass/volume] in Se rum or PlasmaOrdered By: Chivo Keller on 02-24-2025 Ferritin [Mass/Vol] Ferritin [Mass/volume] in Serum or Plasma High 23.9-336.2 [facility] Ferritin [Mass/Vol] 512.8 ng/mL High 23.9-336.2 [facility] Comment on above: Order Comment: STAT FOR CT Performed By: #### F E and TIBC, TONY, CMP, [id number] ####[facility] [id number] Folate [Mass/volume] in Seru m or PlasmaOrdered By: Chivo Keller on 02-24-2025 Folate [Mass/Vol] Folate [Mass/volume] in Serum or Plasma >5.9 [facility] Folate [Mass/Vol] 31.0 ng/mL >5.9 [facility] Comment on above: Folate reference ran ge: >5.9 ng/mlThe WHO technical consultation on folate and vitamin [id number] has determined that folate concentrations lessthan 4 ng/ml are considered deficient. Globulin Calc (S) [Mass/Vol] Ordered By: Chivo Keller on 02-24-2025 Globulin (S) [Mass/Vol] Serum globulin measurement by calculation (mass/volume) [facility] Glucose [Mass/volume] in Ser um or PlasmaOrdered By: Chivo Keller on 02-24-2025 Glucose [Mass/Vol] Glucose [Mass/volume] in Serum or Plasma High 70-100 [facility] Glucose [Mass/Vol] 122 mg/dL High 70-100 [facility] Comment on above: ADA recommended refe rence rangeRandom Glucose Reference Range is dependent on time and content of last meal. Glucose of more than 200 mg/dL in a nonstressed, ambulatory subject supports the diagnosis of Diabetes Mellitus. Order Comment: STAT FOR CT Result Comment: [place] om Glucose Reference Range is dependent on time and content of last meal. Glucose of more than 200 mg/dL in a nonstressed, ambulatory subject supports the diagnosis of Diabetes Mellitus. ADA recommended reference range Performed By: #### F E and TIBC, TONY, CMP, [id number] ####[place] [id number] [address] Iron [Mass/volume] in Serum or PlasmaOrdered By: Chivo Keller on 02-24-2025 Iron [Mass/Vol] Iron [Mass/volume] in Serum or Plasma 50-212 [facility] Iron [Mass/Vol] 52 ug/dL Normal 50-212 [facility] Comment on above: Order Comment: STAT FOR CT Performed By: #### F E and TIBC, TONY, CMP, [id number] ####[place] [address] [place] [id number] [facility] Iron and TIBC Profileon 02-13 % Iron Saturation 19.5 % Low 20-50 [facility] Comment on above: Order Comment: STAT FOR CT Performed By: #### F E and TIBC, TONY, CMP, [id number] ####[address] [address] [facility] Total Iron Binding Capacity 267 ug/dL Normal 255-450 [facility] Comment on above: Order Comment: STAT FOR CT Performed By: #### F E and TIBC, TONY, CMP, [id number] ####[place] [id number] [facility] No Panel InformationOrdered By: Chivo Keller on 02-24-2025 Estimated GFR (CKD-EPI) 29.659 mL/Min [facility] Creatinine Clearance (Chem 31.32 [facility] 29.659 mL/Min [facility] 31.32 [facility] Potassium [Moles/volume] in Serum or PlasmaOrdered By: Chivo Keller on 02-24-2025 Potassium [Moles/Vol] Potassium [Moles/volume] in Serum or Plasma 3.5-5.1 [facility] Potassium [Moles/Vol] 4.0 mmol/L Normal 3.5-5.1 [facility] Comment on above: Order Comment: STAT FOR CT Performed By: #### F E and TIBC, TONY, CMP, [id number] ####[address] Protein [Mass/volume] in Ser um or PlasmaOrdered By: Chivo Keller on 02-24-2025 Protein [Mass/Vol] Protein [Mass/volume] in Serum or Plasma 6.4-8.9 [facility] Protein [Mass/Vol] 7.0 g/dL Normal 6.4-8.9 [facility] Comment on above: Order Comment: STAT FOR CT Performed By: #### F E and TIBC, TONY, CMP, [id number] ####[address] Serum globulin measurement b y calculation (mass/volume)Ordered By: Chivo Keller on 02-24-2025 Globulin (S) [Mass/Vol] 2.9 g/dL Normal [facility] Comment on above: Order Comment: STAT FOR CT Performed By: #### F E and TIBC, TONY, CMP, [id number] ####[address] Serum or plasma albumin/glob ulin mass ratioOrdered By: Chivo Keller on 02-24-2025 Albumin/Globulin [Mass ratio] Serum or plasma albumin/globulin mass ratio [facility] Albumin/Globulin [Mass ratio] 1.4 {ratio} Normal [facility] Comment on above: Order Comment: STAT FOR CT Performed By: #### F E and TIBC, TONY, CMP, [id number] ####[facility] Ocf[address] Serum or plasma anion gap de terminationOrdered By: Chivo Keller on 02-24-2025 Anion gap [Moles/Vol] Serum or plasma anion gap determination 6.0-15.0 [facility] Anion gap [Moles/Vol] 10.3 mmol/L Normal 6.0-15.0 [facility] Comment on above: Order Comment: STAT FOR CT Performed By: #### F E and TIBC, TONY, CMP, [id number] ####[facility] [id number] Serum or plasma erythropoiet in (EPO) measurement (units/volume)Ordered By: Chivo Keller on 02-24-2025 Erythropoietin (EPO) Qn Serum or plasma erythropoietin (EPO) measurement (units/volume) High 2.6-18.5 [facility] Erythropoietin (EPO) Qn 30.4 mIU/mL High 2.6-18.5 [facility] Comment on above: Lashell BrightContext UniC el DxI 800 Immunoassay SystemValues obtained with different assay methods or kits cannotbe used interchangeably. Results cannot be interpreted asabsolute evidence of the presence or absence of malignantdisease.Performed at: [facility] [place] [id number] Director: Nathan Munoz PhD, Phone: [phone] Serum or plasma iron binding capacity measurement (mass/volume)Ordered By: Chivo Keller on 02-24-2025 Iron binding capacity [Mass/Vol] Iron binding capacity [Mass/volume] in Serum or Plasma 255-450 [facility] Iron binding capacity [Mass/Vol] 267 ug/dL 255-450 [facility] Serum or plasma iron saturat ion measurement (mass fraction)Ordered By: Chivo Keller on 02-24-2025 Iron saturation [Mass fraction] Iron saturation [Mass Fraction] in Serum or Plasma Low 20-50 [facility] Iron saturation [Mass fraction] 19.5 % Low 20-50 [facility] Sodium [Moles/volume] in Ser um or PlasmaOrdered By: Chivo Keller on 02-24-2025 Sodium [Moles/Vol] Sodium [Moles/volume] in Serum or Plasma 136-145 [facility] Sodium [Moles/Vol] 143 mmol/L Normal 136-145 [facility] Comment on above: Order Comment: STAT FOR CT Performed By: #### F E and TIBC, TONY, CMP, [id number] ####[place] [address] [place] [id number] [facility] Transferrin [Mass/volume] in Serum or PlasmaOrdered By: Chivo Keller on 02-24-2025 Transferrin [Mass/Vol] Transferrin [Mass/volume] in Serum or Plasma Low 203-362 [facility] Transferrin [Mass/Vol] 191 mg/dL Low 203-362 [facility] Comment on above: Order Comment: STAT FOR CT Performed By: #### F E and TIBC, TONY, CMP, [id number] ####[place] [address] [place] [id number] [facility] Urea nitrogen [Mass/volume] in Serum or PlasmaOrdered By: Chivo Keller on 02-24-2025 Urea nitrogen [Mass/Vol] Urea nitrogen [Mass/volume] in Serum or Plasma High 7-25 [facility] Urea nitrogen [Mass/Vol] 43 mg/dL High 7-25 [facility] Comment on above: Order Comment: STAT FOR CT Performed By: #### F E and TIBC, TONY, CMP, [id number] ####[place] [address] [place] [id number] [facility] Vit. B12/Folate Profileon Folate 31.0 ng/mL Normal >5.9 [facility] Comment on above: Order Comment: STAT FOR CT Result Comment: Echo te reference range: >5.9 ng/ml The WHO technical consultation on folate and vitamin b12 deficiencies has determined that folate concentrations less than 4 ng/ml are considered deficient. PERFORMED BY: [facility] [address] [place] [id number] PATHOLOGIST COST ESTIMATING ENGINEER KRISTEL LU M.D. Performed By: #### F E and TIBC, TONY, CMP, [id number] ####[facility] [address] [place] [address] [facility] Vitamin B12 ser/plasOrdered By: Chivo Keller on 02-24-2025 Cobalamin (Vitamin B12) [Mass/Vol] Vitamin B12 ser/plas 180-914 [facility] Cobalamin (Vitamin B12) [Mass/Vol] 445 pg/mL Normal 180-914 [facility] Comment on above: Order Comment: STAT FOR CT Performed By: #### F E and TIBC, TONY, CMP, [id number] ####[facility] Eqv[address] [place] [address] [facility] Cholesterol in LDL Calc [Mas s/Vol]on 02-20-2025 Cholesterol in LDL [Mass/Vol] Cholesterol in LDL [Mass/volume] in Serum or Plasma by calculation [facility] Cholesterol in LDL [Mass/Vol] 74.2 mg/dL [facility] Comment on above: <100 mg/dl [id number] 0-129 mg/dl NEAR OR ABOVE [id number] mg/dl BORDERLINE [id number] mg/dl HIGH>190 mg/dl VERY HIGH Cholesterol in VLDL Calc [Ma ss/Vol]on 02-20-2025 Cholesterol in VLDL [Mass/Vol] Cholesterol in VLDL [Mass/volume] in Serum or Plasma by calculation [facility] Cholesterol in VLDL [Mass/Vol] 13.8 mg/dL [facility] Glucose mean value [Mass/vol ume] in Blood Estimated from glycated hemoglobinon 02-20-2025 Average glucose Estimated from glycated hemoglobin (Bld) [Mass/Vol] Glucose mean value [Mass/volume] in Blood Estimated from glycated hemoglobin [facility] Average glucose Estimated from glycated hemoglobin (Bld) [Mass/Vol] 126 mg/dL [facility] Hemoglobin A1c percentageon 02-20-2025 HbA1c (Bld) [Mass fraction] Hemoglobin A1c percentage 4.5-6.2 [facility] HbA1c (Bld) [Mass fraction] 6.0 % 4.5-6.2 [facility] Comment on above: ADA RECOMMENDED LIMI T 4.0 - 6.0ADA THERAPEUTIC TARGET < 7.0ACTION SUGGESTED> 7.0 Laboratory - Chemistry and C hemistry - challengeon 02-20-2025 Cholesterol [Mass/Vol] 135 mg/dL <=200 [facility] Cholesterol in HDL [Mass/Vol] 47 mg/dL 40-60 [facility] Comment on above: > or =60 mg/dl - LOW CARDIOVASCULAR RISK<40 mg/dl - HIGH CARDIOVASCULAR RISK Free T4 [Mass/Vol] 0.83 ng/dL 0.76-1.46 [facility] Triglyceride [Mass/Vol] 69 mg/dL <=150 [facility] TSH Qn 19.694 m[IU]/L High 0.358-3.740 [facility] No Panel Informationon 02-20 Prostate Specific Antigen Screen 0.98 ng/mL <=4.00 [facility] Total Triiodothyronine 63 ng/dL Abnormal 71-180 [facility] Comment on above: Performed at: - [facility] [place] [id number] Director: Nathan Munoz PhD, Phone: [phone] 63 ng/dL Abnormal 71-180 [facility] 0.83 ng/dL 0.76-1.46 [facility] 0.98 ng/mL <=4.00 [facility] 19.694 u[iU]/mL High 0.358-3.740 [facility] 135 mg/dL <=200 [facility] 47 mg/dL 40-60 [facility] 69 mg/dL <=150 [facility] Serum or plasma total choles terol/high density lipoprotein (HDL) cholesterol mass ernesto 02-20-2025 Cholesterol.total/Cholest vito in HDL [Mass ratio] Serum or plasma total cholesterol/high density lipoprotein (HDL) cholesterol mass rat [facility] Cholesterol.total/Cholest vito in HDL [Mass ratio] 2.9 {ratio} [facility] Comment on above: 3.3 - 4.4 LOW RISK4. 4 - 7.1 AVERAGE RISK7.1 - 11.0 MODERATE RISK>11.0 HIGH RISK 29on 02-14-2025 29 Addended by: RUSSEL LYNCH on: 02/14/2025 03:45 PM Modules accepted: Orders [facility] Documentationon 02-14-2025 Documentation [id number] Delano Ren 1940 M Date Provider Department Center 02/14/2025 ENRRIQUE TAVAREZ Family History Problem Relation Age of Onset Diabetes Mother Heart disease Father Glaucoma Brother Diabetes Maternal Grandmother Clotting disorder Other Family Status - Relation Status Age at Mother Father Brother Maternal Grandmother Other Reason for Visit and Comments: Hypertension [906827] [facility] 36on 01-29-2025 36 Please call patient the week of 02/11/25 for a BP check. Thanks! [facility] Telephoneon 01-29-2025 Telephone [id number] Delano Ren 1940 M Date Provider Department Center 01/29/2025 ENRRIQUE TAVAREZ Family History Problem Relation Age of Onset Diabetes Mother Heart disease Father Glaucoma Brother Diabetes Maternal Grandmother Clotting disorder Other Family Status - Relation Status Age at Mother Father Brother Maternal Grandmother Other [facility] Office Visiton 01-28-2025 Follow-up visit [id number] Delano Ren 1940 Date Provider Department Center 01/28/2025 ENRRIQUE TAVAREZ Family History Problem Relation Age of Onset Diabetes Mother Heart disease Father Glaucoma Brother Diabetes Maternal Grandmother Clotting disorder Other Family Status - Relation Status Age at Mother Father Brother Maternal Grandmother Other Level of Service:07778 [place] OFFICE/OUTPATIENT ESTABLISHED MOD MDM 30 MIN Reason for Visit and Comments: Atrial Fibrillation [80] Congestive Heart Failure [127] Hypertension [846314] [facility] Albumin [Mass/volume] in Ser um or Plasma by Bromocresol green (BCG) dye binding methoOrdered By: Sotero Black on 01-16-2025 Albumin BCG dye [Mass/Vol] Albumin [Mass/volume] in Serum or Plasma by Bromocresol green (BCG) dye binding metho 3.5-5.7 [facility] Basophils Auto (Bld) [#/Vol] Ordered By: Sotero Black on 01-16-2025 Basophils (Bld) [#/Vol] Automated basoph il count 0.0-0.2 [facility] Basophils/100 WBC Auto (Bld) Ordered By: Sotero Black on 01-16-2025 Basophils/100 WBC (Bld) Automated basophil % . [facility] Calcium [Mass/volume] in Ser um or PlasmaOrdered By: Sotero Black on 01-16-2025 Calcium [Mass/Vol] Calcium [Mass/volume] in Serum or Plasma Low 8.6-10.3 [facility] Carbon dioxide, total [Moles /volume] in Serum or PlasmaOrdered By: Sotero Black on 01-16-2025 CO2 [Moles/Vol] Carbon dioxide, total [Moles/volume] in Serum or Plasma 21.0-31.0 [facility] Chloride [Moles/volume] in S alayna or PlasmaOrdered By: Sotero Black on 01-16-2025 Chloride [Moles/Vol] Chloride [Moles/volume] in Serum or Plasma 98-107 [facility] Complete Blood Count Auto Di ffon 01-16-2025 Basophils (Bld) [#/Vol] 0.1 10*3/uL Normal 0.0-0.2 [facility] Comment on above: Order Comment: Comme nt results to PCP Dr Linda and [facility] Result Comment: PERF ORMED BY: [place] [address] PATHOLOGIST COST ESTIMATING ENGINEER KRISTEL LU M.D. Performed By: #### R ENAL, CBC #### [facility] [address] [place] [address] [place] Basophils/100 WBC (Bld) 2.2 % Normal . T [facility] Comment on above: Order Comment: Comme nt results to PCP Dr Linda and [facility] Performed By: #### R ENAL, CBC #### [facility] [address] [place] [id number] [place] Eosinophils (Bld) [#/Vol] 0.2 10*3/uL Normal 0.0-0.45 [facility] Comment on above: Order Comment: Comme nt results to PCP Dr Linda and [facility] Performed By: #### R ENAL, CBC #### [address] Eosinophils/100 WBC (Bld) 2.8 % Normal . [facility] Comment on above: Order Comment: Comme nt results to PCP Dr Linda and [facility] Performed By: #### R ENAL, CBC #### [address] Erythrocyte distribution width (RBC) [Ratio] 14.7 % Normal 12.0-14.8 [facility] Comment on above: Order Comment: Comme nt results to PCP Dr Linda and [facility] Performed By: #### R ENAL, CBC #### [address] Hematocrit (Bld) [Volume fraction] 28.3 % Low 38.8-50.0 [facility] Comment on above: Order Comment: Comme nt results to PCP Dr Lnida and [facility] Performed By: #### R ENAL, CBC #### [address] Hemoglobin (Bld) [Mass/Vol] 9.7 g/dL Low 13.0-17.0 [facility] Comment on above: Order Comment: Comme nt results to PCP Dr Linda and [facility] Performed By: #### R ENAL, CBC #### [address] Lymphocytes (Bld) [#/Vol] 1.2 10*3/uL Normal 1.00-4.8 [facility] Comment on above: Order Comment: Comme nt results to PCP Dr Linda and [facility] Performed By: #### R ENAL, CBC #### [address] Lymphocytes/100 WBC (Bld) 18.7 % Normal . [facility] Comment on above: Order Comment: Comme nt results to PCP Dr Linda and [facility] Performed By: #### R ENAL, CBC #### [address] MCH (RBC) [Entitic mass] 32.4 pg Normal 27.5-35.2 [facility] Comment on above: Order Comment: Comme nt results to PCP Dr Linda and [facility] Performed By: #### R ENAL, CBC #### [address] MCV (RBC) [Entitic vol] 94.1 fL Normal 83.5-101 [facility] Comment on above: Order Comment: Comme nt results to PCP Dr Linda and [facility] Neph[facility] Performed By: #### R ENAL, CBC #### [address] Mean Corpuscular HGB Conc 34.4 g/dL Normal 32.5-35.6 [facility] Comment on above: Order Comment: Comme nt results to PCP Dr Linda and [facility] Performed By: #### R ENAL, CBC #### [address] Monocytes (Bld) [#/Vol] 0.6 10*3/uL Normal 0.0-0.8 [facility] Comment on above: Order Comment: Comme nt results to PCP Dr Linda and [facility] Performed By: #### R ENAL, CBC #### [address] Monocytes/100 WBC (Bld) 9.4 % Normal . [facility] Comment on above: Order Comment: Comme nt results to PCP Dr Linda and [facility] Performed By: #### R ENAL, CBC #### [place] [address] [place] Neutrophils (Bld) [#/Vol] 4.2 10*3/uL Normal 1.8-7.7 [facility] Comment on above: Order Comment: Comme nt results to PCP Dr Linda and [facility] Performed By: #### R ENAL, CBC #### [place] [address] [place] Neutrophils/100 WBC (Bld) 66.9 % Normal . [facility] Comment on above: Order Comment: Comme nt results to PCP Dr Linda and [facility] Performed By: #### R ENAL, CBC #### [address] NRBC% 0.1 /100{WBC} Normal 0-0.5 [facility] Comment on above: Order Comment: Comme nt results to PCP Dr Linda and [facility] Performed By: #### R ENAL, CBC #### [address] Platelet mean volume (Bld) [Entitic vol] 7.7 fL Normal 6.6-10.1 [facility] Comment on above: Order Comment: Comme nt results to PCP Dr Linda and [facility] Nephro Performed By: #### R ENAL, CBC #### [address] Platelets (Bld) [#/Vol] 287 10*3/uL Normal 150-450 [facility] Comment on above: Order Comment: Comme nt results to PCP Dr Linda and [facility] Nephro Performed By: #### R ENAL, CBC #### [address] RBC (Bld) [#/Vol] 3.01 10*6/uL Low 3.90-5.60 [facility] Comment on above: Order Comment: Comme nt results to PCP Dr Linda and [facility] Performed By: #### R ENAL, CBC #### [address] WBC (Bld) [#/Vol] 6.2 10*3/uL Normal 4.1-10.5 [facility] Comment on above: Order Comment: Comme nt results to PCP Dr Linda and [facility] Nephro Performed By: #### R ENAL, CBC #### [address] Creatinine [Mass/volume] in Serum or PlasmaOrdered By: Sotero Black on 01-16-2025 Creatinine [Mass/Vol] Creatinine [Mass/volume] in Serum or Plasma High 0.70-1.30 [facility] Eosinophils Auto (Bld) [#/Vo l]Ordered By: Sotero Black on 01-16-2025 Eosinophils (Bld) [#/Vol] Automated eosi nophil count 0.0-0.45 [facility] Eosinophils/100 WBC Auto (Bl d)Ordered By: Sotero Black on 01-16-2025 Eosinophils/100 WBC (Bld) Automated eosi nophil % . [facility] Erythrocyte distribution wid th Auto (RBC) [Ratio]Ordered By: Sotero Black on 01-16-2025 Erythrocyte distribution width (RBC) [Ratio] Erythrocyte distribution width [Ratio] by Automated count 12.0-14.8 [facility] Glucose [Mass/volume] in Ser um or PlasmaOrdered By: Sotero Black on 01-16-2025 Glucose [Mass/Vol] Glucose [Mass/volume] in Serum or Plasma High 70-100 [facility] Hematocrit Auto (Bld) [Volum e fraction]Ordered By: Sotero Black on 01-16-2025 Hematocrit (Bld) [Volume fraction] Hematocrit [Volume Fraction] of Blood by Automated count Low 38.8-50.0 [facility] Hemoglobin [Mass/volume] in BloodOrdered By: Sotero Black on 01-16-2025 Hemoglobin (Bld) [Mass/Vol] Hemoglobin [Mass/volume] in Blood Low 13.0-17.0 [facility] Leukocytes [#/volume] correc bonnie for nucleated erythrocytes in Blood by Automated counOrdered By: Sotero Black on 01-16-2025 WBC corrected for nucl RBC Auto (Bld) [#/Vol] Leukocytes [#/volume] corrected for nucleated erythrocytes in Blood by Automated coun 4.1-10.5 [facility] Lymphocytes Auto (Bld) [#/Vo l]Ordered By: Sotero Black on 01-16-2025 Lymphocytes (Bld) [#/Vol] Lymphocytes [#/volume] in Blood by Automated count 1.00-4.8 [facility] Lymphocytes/100 WBC Auto (Bl d)Ordered By: Sotero Black on 01-16-2025 Lymphocytes/100 WBC (Bld) Lymphocytes/10 0 leukocytes in Blood by Automated count . [facility] MCH Auto (RBC) [Entitic mass ]Ordered By: Sotero Black on 01-16-2025 MCH (RBC) [Entitic mass] MCH [Entitic ma ss] by Automated count 27.5-35.2 [facility] MCHC Auto (RBC) [Mass/Vol]Or dered By: Sotero Black on 01-16-2025 MCHC (RBC) [Mass/Vol] MCHC [Mass/volume] by Automated count 32.5-35.6 [facility] MCV Auto (RBC) [Entitic vol] Ordered By: Sotero Black on 01-16-2025 MCV (RBC) [Entitic vol] MCV [Entitic vol ume] by Automated count 83.5-101 [facility] Monocytes Auto (Bld) [#/Vol] Ordered By: Sotero Black on 01-16-2025 Monocytes (Bld) [#/Vol] Automated blood monocyte count 0.0-0.8 [facility] Monocytes/100 WBC Auto (Bld) Ordered By: Sotero Black on 01-16-2025 Monocytes/100 WBC (Bld) Automated monocyte % . [facility] Neutrophils Auto (Bld) [#/Vo l]Ordered By: Sotero Black on 01-16-2025 Neutrophils (Bld) [#/Vol] Neutrophils [#/volume] in Blood by Automated count 1.8-7.7 [facility] Neutrophils/100 WBC Auto (Bl d)Ordered By: Sotero Black on 01-16-2025 Neutrophils/100 WBC (Bld) Automated neut rophil % . [facility] No Panel InformationOrdered By: Sotero Black on 01-16-2025 24.209 mL/Min [facility] N/A [facility] Nucleated erythrocytes [Pres ence] in Blood by Automated countOrdered By: Sotero Black on 01-16-2025 Nucleated RBC Auto Ql (Bld) Nucleated erythrocytes [Presence] in Blood by Automated count 0-0.5 [facility] Phosphate [Mass/volume] in S alayna or PlasmaOrdered By: Sotero Black on 01-16-2025 Phosphate [Mass/Vol] Phosphate [Mass/volume] in Serum or Plasma 2.5-4.5 [facility] Platelet mean volume Auto (B ld) [Entitic vol]Ordered By: Sotero Black on 01-16-2025 Platelet mean volume (Bld) [Entitic vol] Platelet mean volume [Entitic volume] in Blood by Automated count 6.6-10.1 [facility] Platelets Auto (Bld) [#/Vol] Ordered By: Sotero Black on 01-16-2025 Platelets (Bld) [#/Vol] Platelets [#/vol ume] in Blood by Automated count 150-450 [facility] Potassium [Moles/volume] in Serum or PlasmaOrdered By: Sotero Black on 01-16-2025 Potassium [Moles/Vol] Potassium [Moles/volume] in Serum or Plasma 3.5-5.1 [facility] RBC Auto (Bld) [#/Vol]Ordere d By: Soetro Black on 01-16-2025 RBC (Bld) [#/Vol] Erythrocytes [#/volume] in Blood by Automated count Low 3.90-5.60 [facility] Renal Function Panelon 01-16 Albumin [Mass/Vol] 3.7 g/dL Normal 3.5-5.7 [facility] Comment on above: Order Comment: Comme nt results to PCP Dr Linda and [facility] Nephro Result Comment: PERF ORMED BY: [place] [address] PATHOLOGIST COST ESTIMATING ENGINEER KRISTEL LU M.D. Performed By: #### R ADEEL, CBC #### [address] Anion gap [Moles/Vol] 12.3 mmol/L Normal 6.0-15.0 Th e [facility] Comment on above: Order Comment: Comme nt results to PCP Dr Linda and [facility] Nephro Performed By: #### R ADEEL, CBC #### [address] Calcium [Mass/Vol] 7.8 mg/dL Low 8.6-10.3 [facility] Comment on above: Order Comment: Comme nt results to PCP Dr Linda and [facility] Nephro Performed By: #### R ENAL, CBC #### [facility] [address] [place] [address] [place] Chloride [Moles/Vol] 104 mmol/L Normal 98-107 [facility] Comment on above: Order Comment: Comme nt results to PCP Dr Linda and [facility] Nephro Performed By: #### R ENAL, CBC #### [facility] [address] [place] [address] [place] CO2 [Moles/Vol] 28.6 mmol/L Normal 21.0-31.0 [facility] Comment on above: Order Comment: Comme nt results to PCP Dr Linda and [facility] Performed By: #### R ENAL, CBC #### [facility] [address] Creatinine [Mass/Vol] 2.57 mg/dL High 0.70-1.30 [facility] Comment on above: Order Comment: Comme nt results to PCP Dr Linda and [facility] Performed By: #### R ENAL, CBC #### [address] Estimated GFR 24.209 mL/Min Normal [facility] Comment on above: Order Comment: Comme nt results to PCP Dr Linda and [facility] Performed By: #### R ENAL, CBC #### [address] Glucose [Mass/Vol] 117 mg/dL High 70-100 [facility] Comment on above: Order Comment: Comme nt results to PCP Dr Linda and [facility]ph[facility] Result Comment: [place] om Glucose Reference Range is dependent on time and content of last meal. Glucose of more than 200 mg/dL in a nonstressed, ambulatory subject supports the diagnosis of Diabetes Mellitus. ADA recommended reference range Performed By: #### R ENAL, CBC #### [place] [address] [place] Phosphate [Mass/Vol] 3.5 mg/dL Normal 2.5-4.5 [facility] Comment on above: Order Comment: Comme nt results to PCP Dr Linda and [facility] Performed By: #### R ENAL, CBC #### [facility] [address] Potassium [Moles/Vol] 3.9 mmol/L Normal 3.5-5.1 [facility] Comment on above: Order Comment: Comme nt results to PCP Dr Linda and [facility] Ne[facility] Performed By: #### R ENAL, CBC #### [facility] [address] Sodium [Moles/Vol] 141 mmol/L Normal 136-145 [facility] Comment on above: Order Comment: Comme nt results to PCP Dr Linda and [facility] Performed By: #### R ENAL, CBC #### [facility] [address] Urea nitrogen [Mass/Vol] 45 mg/dL High 7-25 [facility] Comment on above: Order Comment: Comme nt results to PCP Dr Linda and [facility] Performed By: #### R ENAL, CBC #### [address] Serum or plasma anion gap de terminationOrdered By: Sotero Black on 01-16-2025 Anion gap [Moles/Vol] Serum or plasma anion gap determination 6.0-15.0 [facility] Sodium [Moles/volume] in Ser um or PlasmaOrdered By: Sotero Black on 01-16-2025 Sodium [Moles/Vol] Sodium [Moles/volume] in Serum or Plasma 136-145 [facility] Urea nitrogen [Mass/volume] in Serum or PlasmaOrdered By: Sotero Black on 01-16-2025 Urea nitrogen [Mass/Vol] Urea nitrogen [Mass/volume] in Serum or Plasma High 7-25 [facility] WBC Auto (Bld) [#/Vol]Ordere d By: Sotero Black on 01-16-2025 WBC (Bld) [#/Vol] Leukocytes [#/volume] in Blood by Automated count 4.1-10.5 [facility] X-ray reportOrdered By: Gianni Scott on 01-14-2025 Study report [facility] XR hip RT min 2V(w/wo pelvis )*on 01-14-2025 XR hip RT min 2V(w/wo pelvis)* [facility] [address] [place] [address] XRay Report Signed Patient: Delano Ren MR#: [id number] [birth year] : 1940 Acct:[id number] Age/Sex: 84 / M ADM Date: 01/14/25 Loc[place] [facility]: Type: [facility] Attending Dr: Walker Soria MD Copies to: [...] Scott Jr., D.OKeo01/14/2025 3:42 PM Dictation Location: [place] [address] Transcribed By: [facility] 01/14/25 1542 Dictated By: Sotero Scott Jr, DO 01/14/25 1542 Signed By: 01/14/25 1542 Normal [facility] Albumin [Mass/volume] in Ser um or Plasma by Bromocresol green (BCG) dye binding methoOrdered By: Sotero Black on 01-10-2025 Albumin BCG dye [Mass/Vol] Albumin [Mass/volume] in Serum or Plasma by Bromocresol green (BCG) dye binding metho Low 3.5-5.7 [facility] Basophils Auto (Bld) [#/Vol] Ordered By: Sotero Black on 01-10-2025 Basophils (Bld) [#/Vol] Automated basoph il count 0.0-0.2 [facility] Basophils/100 WBC Auto (Bld) Ordered By: Sotero Black on 01-10-2025 Basophils/100 WBC (Bld) Automated basophil % . [facility] Calcium [Mass/volume] in Ser um or PlasmaOrdered By: Sotero Black on 01-10-2025 Calcium [Mass/Vol] Calcium [Mass/volume] in Serum or Plasma Low 8.6-10.3 [facility] Carbon dioxide, total [Moles /volume] in Serum or PlasmaOrdered By: Sotero Black on 01-10-2025 CO2 [Moles/Vol] Carbon dioxide, total [Moles/volume] in Serum or Plasma 21.0-31.0 [facility] Chloride [Moles/volume] in S alayna or PlasmaOrdered By: Sotero Black on 01-10-2025 Chloride [Moles/Vol] Chloride [Moles/volume] in Serum or Plasma 98-107 [facility] Complete Blood Count Auto Di ffon 01-10-2025 Basophils (Bld) [#/Vol] 0.0 10*3/uL Normal 0.0-0.2 [facility] Comment on above: Result Comment: PERF ORMED BY: [facility] [address] [place] [address] PATHOLOGIST COST ESTIMATING ENGINEER KRISTEL LU M.D. Performed By: #### R ENAL, CBC ####[address] Basophils/100 WBC (Bld) 0.5 % Normal . T mela [facility] Comment on above: Performed By: #### R ENAL, CBC ####[address] Eosinophils (Bld) [#/Vol] 0.2 10*3/uL Normal 0.0-0.45 [facility] Comment on above: Performed By: #### R ENAL, CBC ####[address] Eosinophils/100 WBC (Bld) 2.6 % Normal . [facility] Comment on above: Performed By: #### R ENAL, CBC ####[address] Erythrocyte distribution width (RBC) [Ratio] 15.0 % High 12.0-14.8 [facility] Comment on above: Performed By: #### R ENAL, CBC ####[address] Hematocrit (Bld) [Volume fraction] 24.3 % Low 38.8-50.0 [facility] Comment on above: Performed By: #### R ENAL, CBC ####[address] Hemoglobin (Bld) [Mass/Vol] 8.2 g/dL Low 13.0-17.0 [facility] Comment on above: Performed By: #### R ENAL, CBC ####[address] Lymphocytes (Bld) [#/Vol] 0.9 10*3/uL Low 1.00-4.8 [facility] Comment on above: Performed By: #### R ENAL, CBC ####[address] Lymphocytes/100 WBC (Bld) 14.9 % Normal . [facility] Comment on above: Performed By: #### R ENAL, CBC ####[address] MCH (RBC) [Entitic mass] 31.8 pg Normal 27.5-35.2 [facility] Comment on above: Performed By: #### R ENAL, CBC ####[address] MCV (RBC) [Entitic vol] 94.3 fL Normal 83.5-101 T he [facility] Comment on above: Performed By: #### R ENAL, CBC ####[address] Mean Corpuscular HGB Conc 33.7 g/dL Normal 32.5-35.6 [facility] Comment on above: Performed By: #### R ENAL, CBC ####[address] Monocytes (Bld) [#/Vol] 0.7 10*3/uL Normal 0.0-0.8 [facility] Comment on above: Performed By: #### R ADEEL, CBC ####[address] Monocytes/100 WBC (Bld) 11.5 % Normal . T he [facility] Comment on above: Performed By: #### R ADEEL, CBC ####[address] Neutrophils (Bld) [#/Vol] 4.4 10*3/uL Normal 1.8-7.7 [facility] Comment on above: Performed By: #### R ADEEL, CBC ####[address] Neutrophils/100 WBC (Bld) 70.5 % Normal . [facility] Comment on above: Performed By: #### R ADEEL, CBC ####[address] NRBC% 0.1 /100{WBC} Normal 0-0.5 [facility] Comment on above: Performed By: #### R ADEEL, CBC ####[address] Platelet mean volume (Bld) [Entitic vol] 6.9 fL Normal 6.6-10.1 [facility] Comment on above: Performed By: #### R ADEEL, CBC ####[address] Platelets (Bld) [#/Vol] 323 10*3/uL Normal 150-450 [facility] Comment on above: Performed By: #### R ADEEL, CBC ####[address] RBC (Bld) [#/Vol] 2.58 10*6/uL Low 3.90-5.60 [facility] Comment on above: Performed By: #### R ADEEL, CBC ####[place] [address] [place] WBC (Bld) [#/Vol] 6.3 10*3/uL Normal 4.1-10.5 [facility] Comment on above: Performed By: #### R ENAL, CBC ####[facility] Apd[address] Creatinine [Mass/volume] in Serum or PlasmaOrdered By: Sotero Black on 01-10-2025 Creatinine [Mass/Vol] Creatinine [Mass/volume] in Serum or Plasma High 0.70-1.30 [facility] Eosinophils Auto (Bld) [#/Vo l]Ordered By: Sotero Black on 01-10-2025 Eosinophils (Bld) [#/Vol] Automated eosi nophil count 0.0-0.45 [facility] Eosinophils/100 WBC Auto (Bl d)Ordered By: Sotero Black on 01-10-2025 Eosinophils/100 WBC (Bld) Automated eosi nophil % . [facility] Erythrocyte distribution wid th Auto (RBC) [Ratio]Ordered By: Sotero Black on 01-10-2025 Erythrocyte distribution width (RBC) [Ratio] Erythrocyte distribution width [Ratio] by Automated count High 12.0-14.8 [facility] Glucose [Mass/volume] in Ser um or PlasmaOrdered By: Sotero Black on 01-10-2025 Glucose [Mass/Vol] Glucose [Mass/volume] in Serum or Plasma 70-100 [facility] Hematocrit Auto (Bld) [Volum e fraction]Ordered By: Sotero Black on 01-10-2025 Hematocrit (Bld) [Volume fraction] Hematocrit [Volume Fraction] of Blood by Automated count Low 38.8-50.0 [facility] Hemoglobin [Mass/volume] in BloodOrdered By: Sotero Black on 01-10-2025 Hemoglobin (Bld) [Mass/Vol] Hemoglobin [Mass/volume] in Blood Low 13.0-17.0 [facility] Leukocytes [#/volume] correc bonnie for nucleated erythrocytes in Blood by Automated counOrdered By: Sotero Black on 01-10-2025 WBC corrected for nucl RBC Auto (Bld) [#/Vol] Leukocytes [#/volume] corrected for nucleated erythrocytes in Blood by Automated coun 4.1-10.5 [facility] Lymphocytes Auto (Bld) [#/Vo l]Ordered By: Sotero Black on 01-10-2025 Lymphocytes (Bld) [#/Vol] Lymphocytes [#/volume] in Blood by Automated count Low 1.00-4.8 [facility] Lymphocytes/100 WBC Auto (Bl d)Ordered By: Sotero Black on 01-10-2025 Lymphocytes/100 WBC (Bld) Lymphocytes/10 0 leukocytes in Blood by Automated count . [facility] MCH Auto (RBC) [Entitic mass ]Ordered By: Sotero Black on 01-10-2025 MCH (RBC) [Entitic mass] MCH [Entitic ma ss] by Automated count 27.5-35.2 [facility] MCHC Auto (RBC) [Mass/Vol]Or dered By: Sotero Black on 01-10-2025 MCHC (RBC) [Mass/Vol] MCHC [Mass/volume] by Automated count 32.5-35.6 [facility] MCV Auto (RBC) [Entitic vol] Ordered By: Sotero Black on 01-10-2025 MCV (RBC) [Entitic vol] MCV [Entitic vol ume] by Automated count 83.5-101 [facility] Monocytes Auto (Bld) [#/Vol] Ordered By: Sotero Black on 01-10-2025 Monocytes (Bld) [#/Vol] Automated blood monocyte count 0.0-0.8 [facility] Monocytes/100 WBC Auto (Bld) Ordered By: Sotero Black on 01-10-2025 Monocytes/100 WBC (Bld) Automated monocyte % . [facility] Neutrophils Auto (Bld) [#/Vo l]Ordered By: Sotero Black on 01-10-2025 Neutrophils (Bld) [#/Vol] Neutrophils [#/volume] in Blood by Automated count 1.8-7.7 [facility] Neutrophils/100 WBC Auto (Bl d)Ordered By: Sotero Black on 01-10-2025 Neutrophils/100 WBC (Bld) Automated neut rophil % . [facility] No Panel InformationOrdered By: Sotero Black on 01-10-2025 26.816 mL/Min [facility] 28.42 [facility] Nucleated erythrocytes [Pres ence] in Blood by Automated countOrdered By: Sotero Black on 01-10-2025 Nucleated RBC Auto Ql (Bld) Nucleated erythrocytes [Presence] in Blood by Automated count 0-0.5 [facility] Phosphate [Mass/volume] in S alayna or PlasmaOrdered By: Sotero Black on 01-10-2025 Phosphate [Mass/Vol] Phosphate [Mass/volume] in Serum or Plasma 2.5-4.5 [facility] Platelet mean volume Auto (B ld) [Entitic vol]Ordered By: Sotero Black on 01-10-2025 Platelet mean volume (Bld) [Entitic vol] Platelet mean volume [Entitic volume] in Blood by Automated count 6.6-10.1 [facility] Platelets Auto (Bld) [#/Vol] Ordered By: Sotero Black on 01-10-2025 Platelets (Bld) [#/Vol] Platelets [#/vol ume] in Blood by Automated count 150-450 [facility] Potassium [Moles/volume] in Serum or PlasmaOrdered By: Sotero Black on 01-10-2025 Potassium [Moles/Vol] Potassium [Moles/volume] in Serum or Plasma 3.5-5.1 [facility] RBC Auto (Bld) [#/Vol]Ordere d By: Sotero Black on 01-10-2025 RBC (Bld) [#/Vol] Erythrocytes [#/volume] in Blood by Automated count Low 3.90-5.60 [facility] Renal Function Panelon 01-10 Albumin [Mass/Vol] 3.1 g/dL Low 3.5-5.7 [facility] Comment on above: Performed By: #### R ENAL, CBC ####[facility] [id number] Anion gap [Moles/Vol] 10.4 mmol/L Normal 6.0-15.0 [facility] Comment on above: Performed By: #### R ENAL, CBC ####[facility] [id number] [place] [id number] [facility] Calcium [Mass/Vol] 7.9 mg/dL Low 8.6-10.3 [facility] Comment on above: Performed By: #### R ENAL, CBC ####[address] Chloride [Moles/Vol] 106 mmol/L Normal 98-107 [facility] Comment on above: Performed By: #### R ENAL, CBC ####[place] [id number] [facility] CO2 [Moles/Vol] 26.5 mmol/L Normal 21.0-31.0 [facility] Comment on above: Performed By: #### R ENAL, CBC ####[address] Creatinine [Mass/Vol] 2.36 mg/dL High 0.70-1.30 [facility] Comment on above: Performed By: #### R ENAL, CBC ####[address] Creatinine Clr Calc Pharmacy 28.42 Normal [facility] Comment on above: Result Comment: PERF ORMED BY: [facility] [address] [place] [address] PATHOLOGIST COST ESTIMATING ENGINEER KRISTEL LU M.D. Performed By: #### R ENAL, CBC ####[address] Estimated GFR 26.816 mL/Min Normal [facility] Comment on above: Performed By: #### R ENAL, CBC ####[place] [id number] [facility] Glucose [Mass/Vol] 89 mg/dL Normal 70-100 [facility] Comment on above: Result Comment: [place] Glucose Reference Range is dependent on time and content of last meal. Glucose of more than 200 mg/dL in a nonstressed, ambulatory subject supports the diagnosis of Diabetes Mellitus. ADA recommended reference range Performed By: #### R ENAL, CBC ####[address] Phosphate [Mass/Vol] 3.9 mg/dL Normal 2.5-4.5 [facility] Comment on above: Performed By: #### R ENAL, CBC ####[place] [id number] [address] Potassium [Moles/Vol] 3.9 mmol/L Normal 3.5-5.1 [facility] Comment on above: Performed By: #### R ENAL, CBC ####[place] [id number] [address] Sodium [Moles/Vol] 139 mmol/L Normal 136-145 [facility] Comment on above: Performed By: #### R ENAL, CBC ####[place] [id number] [address] Urea nitrogen [Mass/Vol] 41 mg/dL High 7-25 [facility] Comment on above: Performed By: #### R ENAL, CBC ####[address] Serum or plasma anion gap de terminationOrdered By: Sotero Black on 01-10-2025 Anion gap [Moles/Vol] Serum or plasma anion gap determination 6.0-15.0 [facility] Sodium [Moles/volume] in Ser um or PlasmaOrdered By: Sotero Black on 01-10-2025 Sodium [Moles/Vol] Sodium [Moles/volume] in Serum or Plasma 136-145 [facility] Urea nitrogen [Mass/volume] in Serum or PlasmaOrdered By: Sotero Black on 01-10-2025 Urea nitrogen [Mass/Vol] Urea nitrogen [Mass/volume] in Serum or Plasma High 7-25 [facility] WBC Auto (Bld) [#/Vol]Ordere d By: Sotero Black on 01-10-2025 WBC (Bld) [#/Vol] Leukocytes [#/volume] in Blood by Automated count 4.1-10.5 [facility] Renal Function Panelon 01-08 Albumin [Mass/Vol] 3.0 g/dL Low 3.5-5.7 [facility] Comment on above: Performed By: #### R ENAL ####[address] [place] [address] [facility] Anion gap [Moles/Vol] 9.4 mmol/L Normal 6.0-15.0 [facility] Comment on above: Performed By: #### R ENAL ####[place] [id number] [facility] Calcium [Mass/Vol] 7.6 mg/dL Low 8.6-10.3 [facility] Comment on above: Performed By: #### R ENAL ####[place] [id number] [facility] Chloride [Moles/Vol] 108 mmol/L High 98-107 [facility] Comment on above: Performed By: #### R ENAL ####[place] [id number] [facility] CO2 [Moles/Vol] 26.8 mmol/L Normal 21.0-31.0 [facility] Comment on above: Performed By: #### R ENAL ####[place] [id number] [facility] Creatinine [Mass/Vol] 1.96 mg/dL High 0.70-1.30 [facility] Comment on above: Performed By: #### R ENAL ####[place] [id number] [facility] Creatinine Clr Calc Pharmacy 33.78 Normal [facility] Comment on above: Result Comment: PERF ORMED BY: [facility] [address] [place] [id number] PATHOLOGIST COST ESTIMATING ENGINEER KRISTEL LU M.D. Performed By: #### R ENAL ####[place] [id number] [facility] Estimated GFR 33.511 mL/Min Normal [facility] Comment on above: Performed By: #### R ENAL ####[place] [id number] [facility] Glucose [Mass/Vol] 108 mg/dL High 70-100 [facility] Comment on above: Result Comment: [place] Glucose Reference Range is dependent on time and content of last meal. Glucose of more than 200 mg/dL in a nonstressed, ambulatory subject supports the diagnosis of Diabetes Mellitus. ADA recommended reference range Performed By: #### R ENAL ####[address] Phosphate [Mass/Vol] 3.5 mg/dL Normal 2.5-4.5 [facility] Comment on above: Performed By: #### R ENAL ####[address] Potassium [Moles/Vol] 4.2 mmol/L Normal 3.5-5.1 [facility] Comment on above: Performed By: #### R ENAL ####[address] Sodium [Moles/Vol] 140 mmol/L Normal 136-145 [facility] Comment on above: Performed By: #### R ENAL ####[address] Urea nitrogen [Mass/Vol] 39 mg/dL High 7-25 [facility] Comment on above: Performed By: #### R ENAL ####[place] [id number] [facility] Hemoglobin and Hematocriton 01-07-2025 Hematocrit (Bld) [Volume fraction] 23.3 % Low 38.8-50.0 [facility] Comment on above: Result Comment: PERF ORMED BY: [facility] [address] [place] [id number] PATHOLOGIST COST ESTIMATING ENGINEER KRISTEL LU M.D. Performed By: #### H H ####[address] Hemoglobin (Bld) [Mass/Vol] 8.0 g/dL Low 13.0-17.0 [facility] Comment on above: Performed By: #### H H ####[place] [id number] [facility] Basic Metabolic Panelon - Anion gap [Moles/Vol] 9.8 mmol/L Normal 6.0-15.0 [facility] Comment on above: Performed By: #### B MP ####[place] [id number] [facility] Calcium [Mass/Vol] 8.2 mg/dL Low 8.6-10.3 [facility] Comment on above: Performed By: #### B MP ####[place] [id number] [facility] Chloride [Moles/Vol] 105 mmol/L Normal 98-107 [facility] Comment on above: Performed By: #### B MP ####[place] [id number] [facility] CO2 [Moles/Vol] 28.4 mmol/L Normal 21.0-31.0 [facility] Comment on above: Performed By: #### B MP ####[place] [id number] [facility] Creatinine [Mass/Vol] 2.36 mg/dL High 0.70-1.30 [facility] Comment on above: Performed By: #### B MP ####[place] [id number] [facility] Creatinine Clr Calc Pharmacy 28.43 Normal [facility] Comment on above: Result Comment: PERF ORMED BY: [facility] [address] [place] [address] PATHOLOGIST COST ESTIMATING ENGINEER KRISTEL LU M.D. Performed By: #### B MP ####[place] [id number] [facility] Estimated GFR 26.816 mL/Min Normal [facility] Physician Group Comment on above: Performed By: #### B MP ####[place] [id number] [facility] Glucose [Mass/Vol] 106 mg/dL High 70-100 The [facility] Comment on above: Result Comment: [place] Glucose Reference Range is dependent on time and content of last meal. Glucose of more than 200 mg/dL in a nonstressed, ambulatory subject supports the diagnosis of Diabetes Mellitus. ADA recommended reference range Performed By: #### B MP ####[place] [id number] [facility] Potassium [Moles/Vol] 4.2 mmol/L Normal 3.5-5.1 The [facility] Comment on above: Performed By: #### B MP ####[place] [id number] [facility] Sodium [Moles/Vol] 139 mmol/L Normal 136-145 The [facility] Comment on above: Performed By: #### B MP ####[place] [id number] [facility] Urea nitrogen [Mass/Vol] 55 mg/dL High 7-25 The [facility] Comment on above: Performed By: #### B MP ####[place] [id number] [facility] Hemogram CBC Without Diffon 01-06-2025 Erythrocyte distribution width (RBC) [Ratio] 14.7 % Normal 12.0-14.8 The [facility] Comment on above: Performed By: #### C BCNO ####[place] [id number] [facility] Hematocrit (Bld) [Volume fraction] 21.9 % Low 38.8-50.0 The [facility] Comment on above: Performed By: #### C BCNO ####[place] [id number] [facility] Hemoglobin (Bld) [Mass/Vol] 7.5 g/dL Low 13.0-17.0 The [facility] Comment on above: Performed By: #### C BCNO ####[place] [id number] [facility] MCH (RBC) [Entitic mass] 32.5 pg Normal 27.5-35.2 The [facility] Comment on above: Performed By: #### C BCNO ####[place] [id number] [facility] MCV (RBC) [Entitic vol] 94.4 fL Normal 83.5-101 T he [facility] Comment on above: Performed By: #### C BCNO ####[place] [id number] [facility] Mean Corpuscular HGB Conc 34.4 g/dL Normal 32.5-35.6 The [facility] Comment on above: Performed By: #### C BCNO ####[place] [id number] [facility] Platelet mean volume (Bld) [Entitic vol] 6.7 fL Normal 6.6-10.1 The [facility] Comment on above: Result Comment: PERF ORMED BY: [facility] [address] [place] [address] PATHOLOGIST COST ESTIMATING ENGINEER KRISTEL LU M.D. Performed By: #### C BCNO ####[place] [id number] [facility] Platelets (Bld) [#/Vol] 350 10*3/uL Normal 150-450 The [facility] Comment on above: Performed By: #### C BCNO ####[place] [id number] [facility] RBC (Bld) [#/Vol] 2.32 10*6/uL Low 3.90-5.60 The [facility] Comment on above: Performed By: #### C BCNO ####[place] [id number] [facility] WBC (Bld) [#/Vol] 8.0 10*3/uL Normal 4.1-10.5 The [facility] Comment on above: Performed By: #### C BCNO ####[place] [id number] [facility] Basic Metabolic Panelon 03- Anion gap [Moles/Vol] 10.8 mmol/L Normal 6.0-15.0 e [facility] Comment on above: Performed By: #### R ENAL, CBC #### [address] Calcium [Mass/Vol] 7.6 mg/dL Low 8.6-10.3 The [facility] Comment on above: Performed By: #### R ENAL, CBC #### [address] Chloride [Moles/Vol] 104 mmol/L Normal 98-107 The [facility] Comment on above: Performed By: #### R ENAL, CBC #### [address] CO2 [Moles/Vol] 28.5 mmol/L Normal 21.0-31.0 The [facility] Comment on above: Performed By: #### R ENAL, CBC #### [facility] [address] Creatinine [Mass/Vol] 2.73 mg/dL High 0.70-1.30 The [facility] Comment on above: Performed By: #### R ENAL, CBC #### [address] Creatinine Clr Calc Pharmacy 24.47 Normal The [facility] Comment on above: Result Comment: PERF ORMED BY: [place] [address] PATHOLOGIST COST ESTIMATING ENGINEER KRISTEL LU M.D. Performed By: #### R ENAL, CBC #### [address] Estimated GFR 22.517 mL/Min Normal The [facility] Comment on above: Performed By: #### R ENAL, CBC #### [address] Glucose [Mass/Vol] 107 mg/dL High 70-100 The [facility] Comment on above: Result Comment: [place] om Glucose Reference Range is dependent on time and content of last meal. Glucose of more than 200 mg/dL in a nonstressed, ambulatory subject supports the diagnosis of Diabetes Mellitus. ADA recommended reference range Performed By: #### R ENAL, CBC #### [address] Potassium [Moles/Vol] 4.3 mmol/L Normal 3.5-5.1 The [facility] Comment on above: Performed By: #### R ENAL, CBC #### [address] Sodium [Moles/Vol] 139 mmol/L Normal 136-145 The [facility] Comment on above: Performed By: #### R ENAL, CBC #### [address] Urea nitrogen [Mass/Vol] 64 mg/dL High 7-25 The [facility] Comment on above: Performed By: #### R ENAL, CBC #### [address] Hemogram CBC Without Diffon 01-05-2025 Erythrocyte distribution width (RBC) [Ratio] 14.7 % Normal 12.0-14.8 The [facility] Comment on above: Performed By: #### R ENAL, CBC #### [address] Hematocrit (Bld) [Volume fraction] 22.4 % Low 38.8-50.0 The [facility] Comment on above: Performed By: #### R ENAL, CBC #### [address] Hemoglobin (Bld) [Mass/Vol] 7.9 g/dL Low 13.0-17.0 The [facility] Comment on above: Performed By: #### R ENAL, CBC #### [address] MCH (RBC) [Entitic mass] 32.9 pg Normal 27.5-35.2 The [facility] Comment on above: Performed By: #### R ENAL, CBC #### [address] MCV (RBC) [Entitic vol] 93.6 fL Normal 83.5-101 T [facility] Physician Group Comment on above: Performed By: #### R ENAL, CBC #### [address] Mean Corpuscular HGB Conc 35.2 g/dL Normal 32.5-35.6 The [facility] Comment on above: Performed By: #### R ENAL, CBC #### [facility] [address] Platelet mean volume (Bld) [Entitic vol] 6.9 fL Normal 6.6-10.1 The [facility] Comment on above: Result Comment: PERF ORMED BY: [place] [address] PATHOLOGIST COST ESTIMATING ENGINEER KRISTEL LU M.D. Performed By: #### R ENAL, CBC #### [address] Platelets (Bld) [#/Vol] 381 10*3/uL Normal 150-450 The [facility] Comment on above: Performed By: #### R ENAL, CBC #### [address] RBC (Bld) [#/Vol] 2.39 10*6/uL Low 3.90-5.60 The [facility] Comment on above: Performed By: #### R ENAL, CBC #### [address] WBC (Bld) [#/Vol] 9.3 10*3/uL Normal 4.1-10.5 The [facility] Comment on above: Performed By: #### R ENAL, CBC #### [address] Anisocytosis LM Ql (Bld)Orde red By: Brenda Driscoll on 01-04-2025 Anisocytosis Ql (Bld) Anisocytosis [Presence] in Blood by Light microscopy [facility] Band form neutrophils/100 WB C Manual cnt (Bld)Ordered By: Brenda Driscoll on 01-04-2025 Band form neutrophils/100 WBC (Bld) Peripheral white blood cell differential % bands, microscopic exam 0-5 [facility] Basic Metabolic Panelon 12-15 Anion gap [Moles/Vol] 10.2 mmol/L Normal 6.0-15.0 Th e [facility] Comment on above: Performed By: #### B MP, DIFF CBC ####[place] [id number] [place] [id number] [facility] Calcium [Mass/Vol] 8.2 mg/dL Low 8.6-10.3 The [facility] Comment on above: Performed By: #### B MP, DIFF CBC ####[place] [id number] [place] [id number] [place] Chloride [Moles/Vol] 102 mmol/L Normal 98-107 The [facility] Comment on above: Performed By: #### B MP, DIFF CBC ####[place] [address] [place] [id number] [place] CO2 [Moles/Vol] 30.1 mmol/L Normal 21.0-31.0 The [facility] Comment on above: Performed By: #### B MP, DIFF CBC ####[place] [id number] [place] [id number] [facility] Creatinine [Mass/Vol] 2.84 mg/dL High 0.70-1.30 The [facility] Comment on above: Performed By: #### B MP, DIFF CBC ####[place] [address] [place] [id number] [place] Creatinine Clr Calc Pharmacy 23.55 Normal The [facility] Comment on above: Result Comment: PERF ORMED BY: [facility] [address] [place] [address] PATHOLOGIST COST ESTIMATING ENGINEER KRISTEL LU M.D. Performed By: #### B MP, DIFF CBC ####[place] [id number] [place] [id number] [facility] Estimated GFR 21.474 mL/Min Normal The [facility] Comment on above: Performed By: #### B MP, DIFF CBC ####[place] [id number] [place] [id number] [facility] Glucose [Mass/Vol] 110 mg/dL High 70-100 The [facility] Comment on above: Result Comment: [place] om Glucose Reference Range is dependent on time and content of last meal. Glucose of more than 200 mg/dL in a nonstressed, ambulatory subject supports the diagnosis of Diabetes Mellitus. ADA recommended reference range Performed By: #### B MP, DIFF CBC ####[address] Potassium [Moles/Vol] 4.3 mmol/L Normal 3.5-5.1 The [facility] Comment on above: Performed By: #### B MP, DIFF CBC ####[address] Sodium [Moles/Vol] 138 mmol/L Normal 136-145 The [facility] Comment on above: Performed By: #### B MP, DIFF CBC ####[address] Urea nitrogen [Mass/Vol] 76 mg/dL High 7-25 The [facility] Comment on above: Performed By: #### B MP, DIFF CBC ####[address] Diff and CBCon 01-04-2025 Anisocytosis Ql (Bld) Slight Normal The [facility] Comment on above: Performed By: #### B MP, DIFF CBC ####[address] Band form neutrophils/100 WBC (Bld) 3 % Normal 0-5 The [facility] Comment on above: Performed By: #### B MP, DIFF CBC ####[place] [id number] [facility] Eosinophils/100 WBC (Bld) 1 % Normal 1-3 The [facility] Comment on above: Performed By: #### B MP, DIFF CBC ####[place] [id number] [facility] Erythrocyte distribution width (RBC) [Ratio] 14.8 % Normal 12.0-14.8 The [facility] Comment on above: Performed By: #### B MP, DIFF CBC ####[place] [id number] [facility] Hematocrit (Bld) [Volume fraction] 23.4 % Low 38.8-50.0 The [facility] Comment on above: Performed By: #### B MP, DIFF CBC ####[address] Hemoglobin (Bld) [Mass/Vol] 8.0 g/dL Low 13.0-17.0 The [facility] Comment on above: Performed By: #### B MP, DIFF CBC ####[address] Large Platelets Slight Normal The [facility] Comment on above: Result Comment: PERF ORMED BY: [facility] [address] [place] [address] PATHOLOGIST COST ESTIMATING ENGINEER KRISTEL LU M.D. Performed By: #### B MP, DIFF CBC ####[address] Lymphocytes/100 WBC (Bld) 10 % Low 18-42 The [facility] Comment on above: Performed By: #### B MP, DIFF CBC ####[address] MCH (RBC) [Entitic mass] 32.5 pg Normal 27.5-35.2 The [facility] Comment on above: Performed By: #### B MP, DIFF CBC ####[address] MCV (RBC) [Entitic vol] 94.2 fL Normal 83.5-101 T he [facility] Comment on above: Performed By: #### B MP, DIFF CBC ####[address] Mean Corpuscular HGB Conc 34.5 g/dL Normal 32.5-35.6 The [facility] Comment on above: Performed By: #### B MP, DIFF CBC ####[address] Metamyelocytes 1 % High 0-0 The [facility] Comment on above: Performed By: #### B MP, DIFF CBC ####[address] Microcytosis Slight Normal The [facility] Comment on above: Performed By: #### B MP, DIFF CBC ####[address] Monocytes/100 WBC (Bld) 4 % Normal 2-11 T he [facility] Comment on above: Performed By: #### B MP, DIFF CBC ####[place] [id number] [facility] Ovalocytes Slight Normal The [facility] Comment on above: Performed By: #### B MP, DIFF CBC ####[address] Platelet Estimate Normal Normal Normal The [facility] Comment on above: Performed By: #### B MP, DIFF CBC ####[address] Platelet mean volume (Bld) [Entitic vol] 7.1 fL Normal 6.6-10.1 The [facility] Comment on above: Performed By: #### B MP, DIFF CBC ####[address] Platelet Morphology Normal Normal Normal The [facility] Comment on above: Performed By: #### B MP, DIFF CBC ####[place] [id number] [facility] Platelets (Bld) [#/Vol] 374 10*3/uL Normal 150-450 The [facility] Comment on above: Performed By: #### B MP, DIFF CBC ####[place] [id number] [facility] Poikilocytosis Slight Normal The [facility] Comment on above: Performed By: #### B MP, DIFF CBC ####[address] RBC (Bld) [#/Vol] 2.48 10*6/uL Low 3.90-5.60 The [facility] Comment on above: Performed By: #### B MP, DIFF CBC ####[place] [id number] [facility] Segmented neutrophils/100 WBC (Bld) 82 % High 50-70 The [facility] Comment on above: Performed By: #### B MP, DIFF CBC ####[facility] [address] WBC (Bld) [#/Vol] 9.8 10*3/uL Normal 4.1-10.5 The [facility] Comment on above: Performed By: #### B MP, DIFF CBC ####[facility] [address] [place] [id number] [facility] Eosinophils/100 WBC Manual c nt (Bld)Ordered By: Brenda Driscoll on 01-04-2025 Eosinophils/100 WBC (Bld) Eosinophils/10 0 leukocytes in Blood by Manual count 1-3 [facility] Erythrocyte morphology findi ng [Identifier] in BloodOrdered By: Brenda Driscoll on 01-04-2025 RBC morphology finding Nom (Bld) RBC morphology [facility] Lymphocytes/100 WBC Manual c nt (Bld)Ordered By: Brenda Driscoll on 01-04-2025 Lymphocytes/100 WBC (Bld) Lymphocytes/10 0 leukocytes in Blood by Manual count Low 18-42 [facility] Metamyelocytes/100 WBC Manua l cnt (Bld)Ordered By: Bredna Driscoll on 01-04-2025 Metamyelocytes/100 WBC (Bld) Metamyelocytes/100 leukocytes in Blood by Manual count High 0-0 [facility] Microcytes LM Ql (Bld)Ordere d By: Brenda Driscoll on 01-04-2025 Microcytes Ql (Bld) Microcytes [Presence] in Blood by Light microscopy [facility] Monocytes/100 WBC Manual cnt (Bld)Ordered By: Brenda Driscoll on 01-04-2025 Monocytes/100 WBC (Bld) Monocytes/100 leukocytes in Blood by Manual count 2-11 [facility] Ovalocytes [Presence] in Blo od by Light microscopyOrdered By: Brenda Driscoll on 01-04-2025 Ovalocytes LM Ql (Bld) Ovalocyte detection [facility] Platelet adequacy [Presence] in Blood by Light microscopyOrdered By: Brenda Driscoll on 01-04-2025 Platelets LM Ql (Bld) Platelet adequacy [Presence] in Blood by Light microscopy Normal [facility] Platelet morphology finding [Identifier] in BloodOrdered By: Brenda Driscoll on 01-04-2025 Platelet morphology finding Nom (Bld) Platelet morphology finding [Identifier] in Blood Normal [facility] Platelets Large [Presence] i n Blood by Light microscopyOrdered By: Brenda Driscoll on 01-04-2025 Platelets Large LM Ql (Bld) Platelets Large [Presence] in Blood by Light microscopy [facility] Poikilocytosis [Presence] in Blood by Light microscopyOrdered By: Brenda Driscoll on 01-04-2025 Poikilocytosis LM Ql (Bld) Poikilocytosis [Presence] in Blood by Light microscopy [facility] Segmented neutrophils/100 WB C Manual cnt (Bld)Ordered By: Brenda Driscoll on 01-04-2025 Segmented neutrophils/100 WBC (Bld) Manual blood segmented neutrophils/100 leukocytes High 50-70 [facility] Basic Metabolic Panelon 12-15 Anion gap [Moles/Vol] 11.5 mmol/L Normal 6.0-15.0 Th e [facility] Comment on above: Performed By: #### B MARGARETH, CBCNO ####[facility] [place] [id number] [facility] Calcium [Mass/Vol] 8.0 mg/dL Low 8.6-10.3 The [facility] Comment on above: Performed By: #### B MARGARETH, CBCNO ####[facility] [place] [id number] [facility] Chloride [Moles/Vol] 98 mmol/L Normal 98-107 The [facility] Comment on above: Performed By: #### B MP, CBCNO ####[facility] [address] [place] [address] [facility] CO2 [Moles/Vol] 29.8 mmol/L Normal 21.0-31.0 The [facility] Comment on above: Performed By: #### B MP, CBCNO ####[facility] [address] [place] [address] [facility] Creatinine [Mass/Vol] 3.16 mg/dL Significan t change up 0.70-1.30 The [facility] Comment on above: Performed By: #### B MARGARETH, CBCNO ####[facility] [place] [id number] [facility] Creatinine Clr Calc Pharmacy 21.34 Normal [facility] Comment on above: Result Comment: PERF ORMED BY: [facility] [address] [place] [address] PATHOLOGIST COST ESTIMATING ENGINEER KRISTEL LU M.D. Performed By: #### B MARGARETH, CBCNO ####[place] [address] [place] [id number] [facility] Estimated GFR 18.892 mL/Min Normal [facility] Comment on above: Performed By: #### B MARGARETH, CBCNO ####[place] [address] [place] [id number] [facility] Glucose [Mass/Vol] 118 mg/dL High 70-100 The [facility] Comment on above: Result Comment: [place] Glucose Reference Range is dependent on time and content of last meal. Glucose of more than 200 mg/dL in a nonstressed, ambulatory subject supports the diagnosis of Diabetes Mellitus. ADA recommended reference range Performed By: #### B MARGARETH, CBCNO ####[place] [address] [place] [id number] [facility] Potassium [Moles/Vol] 4.3 mmol/L Normal 3.5-5.1 The [facility] Comment on above: Performed By: #### B MARGARETH, CBCNO ####[place] [id number] [facility] Sodium [Moles/Vol] 135 mmol/L Low 136-145 The [facility] Comment on above: Performed By: #### B MARGARETH, CBCNO ####[place] [address] [place] [id number] [facility] Urea nitrogen [Mass/Vol] 91 mg/dL High 7-25 The [facility] Comment on above: Performed By: #### B MARGARETH, CBCNO ####[facility] [place] [id number] [facility] Hemogram CBC Without Diffon 01-03-2025 Erythrocyte distribution width (RBC) [Ratio] 14.9 % High 12.0-14.8 The [facility] Comment on above: Performed By: #### B MP, CBCNO ####[address] Hematocrit (Bld) [Volume fraction] 22.0 % Low 38.8-50.0 The [facility] Comment on above: Performed By: #### B MP, CBCNO ####[address] Hemoglobin (Bld) [Mass/Vol] 7.7 g/dL Low 13.0-17.0 The [facility] Comment on above: Performed By: #### B MARGARETH, CBCNO ####[address] MCH (RBC) [Entitic mass] 32.6 pg Normal 27.5-35.2 The [facility] Comment on above: Performed By: #### B MP, CBCNO ####[address] MCV (RBC) [Entitic vol] 93.0 fL Normal 83.5-101 T he [facility] Comment on above: Performed By: #### B MARGARETH, CBCNO ####[address] Mean Corpuscular HGB Conc 35.0 g/dL Normal 32.5-35.6 The [facility] Comment on above: Performed By: #### B MARGARETH, CBCNO ####[address] Platelet mean volume (Bld) [Entitic vol] 7.4 fL Normal 6.6-10.1 The [facility] Comment on above: Result Comment: PERF ORMED BY: [facility] [address] [place] [address] PATHOLOGIST COST ESTIMATING ENGINEER KRISTEL LU M.D. Performed By: #### B MP, CBCNO ####[address] Platelets (Bld) [#/Vol] 345 10*3/uL Normal 150-450 [facility] Comment on above: Performed By: #### B MP, CBCNO ####[address] RBC (Bld) [#/Vol] 2.37 10*6/uL Low 3.90-5.60 The [facility] Comment on above: Performed By: #### B MP, CBCNO ####[address] WBC (Bld) [#/Vol] 10.0 10*3/uL Normal 4.1-10.5 The [facility] Comment on above: Performed By: #### B MARGARETH, CBCNO ####[address] Fecal occult blood detection by immunochemistryOrdered By: Winsome Goff on 01-02-2025 Hemoglobin.gastrointestin al Ql (Stl) Fecal occult blood detection by immunochemistry [facility] Hemogram CBC Without Diffon 01-02-2025 Erythrocyte distribution width (RBC) [Ratio] 14.6 % Normal 12.0-14.8 [facility] Comment on above: Performed By: #### C BCNO, RENAL ####[address] Hematocrit (Bld) [Volume fraction] 22.2 % Low 38.8-50.0 [facility] Comment on above: Performed By: #### C BCNO, RENAL ####[address] Hemoglobin (Bld) [Mass/Vol] 7.5 g/dL Low 13.0-17.0 [facility] Comment on above: Performed By: #### C BCNO, RENAL ####[address] MCH (RBC) [Entitic mass] 31.9 pg Normal 27.5-35.2 [facility] Comment on above: Performed By: #### C BCNO, RENAL ####[address] [place] [address] [facility] MCV (RBC) [Entitic vol] 94.0 fL Normal 83.5-101 T he [facility] Comment on above: Performed By: #### C BLANCHE, RENAL ####[place] [id number] [facility] Mean Corpuscular HGB Conc 33.9 g/dL Normal 32.5-35.6 [facility] Comment on above: Performed By: #### C BLANCHE, RENAL ####[address] Platelet mean volume (Bld) [Entitic vol] 7.5 fL Normal 6.6-10.1 [facility] Comment on above: Result Comment: PERF ORMED BY: [facility] [address] [facility] [place] [place] [address] PATHOLOGIST COST ESTIMATING ENGINEER KRISTEL LU M.D. Performed By: #### C BLANCHE, RENAL ####[address] Platelets (Bld) [#/Vol] 332 10*3/uL Normal 150-450 [facility] Comment on above: Performed By: #### C BLANCHE, RENAL ####[place] [id number] [facility] RBC (Bld) [#/Vol] 2.36 10*6/uL Low 3.90-5.60 [facility] Comment on above: Performed By: #### C BLANCHE, RENAL ####[address] WBC (Bld) [#/Vol] 11.7 10*3/uL High 4.1-10.5 [facility] Comment on above: Performed By: #### C BLANCHE, RENAL ####[place] [id number] [facility] Renal Function Panelon 01-02 Albumin [Mass/Vol] 2.8 g/dL Low 3.5-5.7 [facility] Comment on above: Performed By: #### C BLANCHE, RENAL ####[place] [address] [place] [address] [facility] Anion gap [Moles/Vol] 11.2 mmol/L Normal 6.0-15.0 Th e [facility] Comment on above: Performed By: #### C BCNO, RENAL ####[place] [address] [place] [address] [facility] Calcium [Mass/Vol] 8.4 mg/dL Low 8.6-10.3 [facility] Comment on above: Performed By: #### C BCNO, RENAL ####[address] [address] [facility] Chloride [Moles/Vol] 96 mmol/L Low 98-107 [facility] Comment on above: Performed By: #### C BCNO, RENAL ####[address] [address] [facility] CO2 [Moles/Vol] 30.4 mmol/L Normal 21.0-31.0 [facility] Comment on above: Performed By: #### C BCNO, RENAL ####[address] [address] [facility] Creatinine [Mass/Vol] 3.67 mg/dL High 0.70-1.30 [facility] Comment on above: Performed By: #### C BCNO, RENAL ####[address] [address] [place] Creatinine Clr Calc Pharmacy 18.42 Normal [facility] Comment on above: Result Comment: PERF ORMED BY: [facility] [address] [place] [id number] PATHOLOGIST COST ESTIMATING ENGINEER KRISTEL LU M.D. Performed By: #### C BCNO, RENAL ####[address] [address] [facility] Estimated GFR 15.787 mL/Min Normal [facility] Comment on above: Performed By: #### C BCNO, RENAL ####[place] [id number] [facility] Glucose [Mass/Vol] 107 mg/dL High 70-100 [facility] Comment on above: Result Comment: [place] Glucose Reference Range is dependent on time and content of last meal. Glucose of more than 200 mg/dL in a nonstressed, ambulatory subject supports the diagnosis of Diabetes Mellitus. ADA recommended reference range Performed By: #### C BLANCHE, RENAL ####[place] [address] [place] [id number] [facility] Phosphate [Mass/Vol] 4.2 mg/dL Normal 2.5-4.5 The [facility] Comment on above: Performed By: #### C BLANCHE, RENAL ####[place] [address] [place] [id number] [facility] Potassium [Moles/Vol] 4.6 mmol/L Normal 3.5-5.1 [facility] Comment on above: Performed By: #### C BLANCHE, RENAL ####[address] Sodium [Moles/Vol] 133 mmol/L Low 136-145 [facility] Comment on above: Performed By: #### C BLANCHE, RENAL ####[place] [address] [place] [phone] [facility] Urea nitrogen [Mass/Vol] 90 mg/dL High 7-25 [facility] Comment on above: Performed By: #### C BLANCHE, RENAL ####[place] [address] [place] [id number] [facility] Stool Occult Blood (Immuno)o n 01-02-2025 Stool Occult Blood (Immuno) Occult Blood (Immuno) Positive for Occult Blood by Immunochemical Methodology Reference range = Negative PERFORMED BY: [facility] [address] [place] [phone] PATHOLOGIST COST ESTIMATING ENGINEER KRISTEL LU M.D. Normal The [facility] Comment on above: Performed By: #### O B(IMMUNO) ####[place] [id number] [facility] Hemoglobin and Hematocriton 01-01-2025 Hematocrit (Bld) [Volume fraction] 23.8 % Low 38.8-50.0 [facility] Comment on above: Result Comment: PERF ORMED BY: [facility] [address] [place] [address] PATHOLOGIST COST ESTIMATING ENGINEER KRISTEL LU M.D. Performed By: #### H H ####[address] Hemoglobin (Bld) [Mass/Vol] 8.3 g/dL Low 13.0-17.0 [facility] Comment on above: Performed By: #### H H ####[address] Diff and CBCon 12-31-2024 Anisocytosis Ql (Bld) Slight Normal [facility] Comment on above: Performed By: #### D IFF CBC ####[address] Eosinophils/100 WBC (Bld) 3 % Normal 1-3 [facility] Comment on above: Performed By: #### D IFF CBC ####[address] Erythrocyte distribution width (RBC) [Ratio] 15.0 % High 12.0-14.8 [facility] Comment on above: Performed By: #### D IFF CBC ####[address] Hematocrit (Bld) [Volume fraction] 22.5 % Low 38.8-50.0 [facility] Comment on above: Performed By: #### D IFF CBC ####[address] Hemoglobin (Bld) [Mass/Vol] 7.6 g/dL Low 13.0-17.0 [facility] Comment on above: Performed By: #### D IFF CBC ####[place] [address] Lymphocytes/100 WBC (Bld) 7 % Low 18-42 [facility] Comment on above: Performed By: #### D IFF CBC ####[address] MCH (RBC) [Entitic mass] 31.6 pg Normal 27.5-35.2 [facility] Comment on above: Performed By: #### D IFF CBC ####[address] MCV (RBC) [Entitic vol] 92.9 fL Normal 83.5-101 T [facility] Comment on above: Performed By: #### D IFF CBC ####[address] Mean Corpuscular HGB Conc 34.0 g/dL Normal 32.5-35.6 [facility] Comment on above: Performed By: #### D IFF CBC ####[address] Metamyelocytes 2 % High 0-0 [facility] Comment on above: Performed By: #### D IFF CBC ####[address] Monocytes/100 WBC (Bld) 2 % Normal 2-11 [facility] Comment on above: Performed By: #### D IFF CBC ####[address] Myelocytes 1 % High 0-0 [facility] Comment on above: Performed By: #### D IFF CBC ####[address] Platelet Estimate Normal Normal Normal [facility] Comment on above: Result Comment: PERF ORMED BY: [facility] [address] [place] [address] PATHOLOGIST COST ESTIMATING ENGINEER KRISTEL LU M.D. Performed By: #### D IFF CBC ####[address] [place] [address] [place] Platelet mean volume (Bld) [Entitic vol] 7.4 fL Normal 6.6-10.1 [facility] Comment on above: Performed By: #### D IFF CBC ####[address] Platelet Morphology Normal Normal Normal [facility] Comment on above: Result Comment: PERF ORMED BY: [facility] [address] [place] [phone] PATHOLOGIST COST ESTIMATING ENGINEER KRISTEL LU M.D. Performed By: #### D IFF CBC ####[address] Platelets (Bld) [#/Vol] 299 10*3/uL Normal 150-450 [facility] Comment on above: Performed By: #### D IFF CBC ####[address] RBC (Bld) [#/Vol] 2.42 10*6/uL Low 3.90-5.60 [facility] Comment on above: Performed By: #### D IFF CBC ####[address] Segmented neutrophils/100 WBC (Bld) 86 % High 50-70 [facility] Comment on above: Performed By: #### D IFF CBC ####[address] WBC (Bld) [#/Vol] 8.8 10*3/uL Normal 4.1-10.5 [facility] Comment on above: Performed By: #### D IFF CBC ####[address] LeukoReduced RBCon LeukoReduced RBC NOT AVAILABLE Normal [facility] Myelocytes/100 WBC Manual cn t (Bld)Ordered By: Sotero Black on 12-31-2024 Myelocytes/100 WBC (Bld) Myelocytes/100 leukocytes in Blood by Manual count High 0-0 [facility] Renal Function Panelon 12-31 Albumin [Mass/Vol] 3.0 g/dL Low 3.5-5.7 [facility] Comment on above: Performed By: #### R ENAL ####[address] Anion gap [Moles/Vol] 11.4 mmol/L Normal 6.0-15.0 Th e [facility] Comment on above: Performed By: #### R ENAL ####[address] Calcium [Mass/Vol] 8.7 mg/dL Normal 8.6-10.3 [facility] Comment on above: Performed By: #### R ENAL ####[address] Chloride [Moles/Vol] 95 mmol/L Low 98-107 [facility] Comment on above: Performed By: #### R ENAL ####[address] CO2 [Moles/Vol] 32.6 mmol/L High 21.0-31.0 [facility] Comment on above: Performed By: #### R ENAL ####[address] Creatinine [Mass/Vol] 3.24 mg/dL High 0.70-1.30 [facility] Comment on above: Performed By: #### R ENAL ####[address] Creatinine Clr Calc Pharmacy 20.85 Normal [facility] Comment on above: Result Comment: PERF ORMED BY: [facility] [address] [place] [address] PATHOLOGIST COST ESTIMATING ENGINEER KRISTEL LU M.D. Performed By: #### R ENAL ####[address] Estimated GFR 18.334 mL/Min Normal [facility] Comment on above: Performed By: #### R ENAL ####[place] [id number] [facility] Glucose [Mass/Vol] 120 mg/dL High 70-100 [facility] Comment on above: Result Comment: [facility] Glucose Reference Range is dependent on time and content of last meal. Glucose of more than 200 mg/dL in a nonstressed, ambulatory subject supports the diagnosis of Diabetes Mellitus. ADA recommended reference range Performed By: #### R ENAL ####[address] Phosphate [Mass/Vol] 4.3 mg/dL Normal 2.5-4.5 [facility] Comment on above: Performed By: #### R ENAL ####[address] Potassium [Moles/Vol] 4.0 mmol/L Normal 3.5-5.1 [facility] Comment on above: Performed By: #### R ENAL ####[address] Sodium [Moles/Vol] 135 mmol/L Low 136-145 [facility] Comment on above: Performed By: #### R ENAL ####[place] [id number] [facility] Urea nitrogen [Mass/Vol] 94 mg/dL High 7-25 [facility] Comment on above: Performed By: #### R ENAL ####[address] Type and Screenon 12-31-2024 ABO and Rh group Nom (Bld) Blood group O Rh(D) positive Normal [facility] Comment on above: Order Comment: Trans fuse now? Y Number of units to transfuse now? 2 Transfuse now? Y Number of units to transfuse now? 1 Transfuse now? Y Number of units to transfuse now? 1 Transfuse now? Y Number of units to transfuse now? 1 Basic Metabolic Panelon 12-14 Anion gap [Moles/Vol] 11.8 mmol/L Normal 6.0-15.0 Th e [facility] Comment on above: Performed By: #### B MP, URIC ####[place] [id number] [facility] Calcium [Mass/Vol] 9.1 mg/dL Normal 8.6-10.3 [facility] Comment on above: Performed By: #### B MP, URIC ####[place] [id number] [facility] Chloride [Moles/Vol] 93 mmol/L Low 98-107 [facility] Comment on above: Performed By: #### B MP, URIC ####[place] [id number] [facility] CO2 [Moles/Vol] 35.5 mmol/L High 21.0-31.0 [facility] Comment on above: Performed By: #### B MP, URIC ####[place] [id number] [facility] Creatinine [Mass/Vol] 3.21 mg/dL High 0.70-1.30 [facility] Comment on above: Performed By: #### B MP, URIC ####[place] [id number] [facility] Creatinine Clr Calc Pharmacy 21.04 Normal [facility] Comment on above: Performed By: #### B MP, URIC ####[place] [id number] [facility] Estimated GFR 18.539 mL/Min Normal [facility] Comment on above: Performed By: #### B MP, URIC ####[place] [id number] [facility] Glucose [Mass/Vol] 123 mg/dL High 70-100 [facility] Comment on above: Result Comment: [place] [facility] Glucose Reference Range is dependent on time and content of last meal. Glucose of more than 200 mg/dL in a nonstressed, ambulatory subject supports the diagnosis of Diabetes Mellitus. ADA recommended reference range Performed By: #### B MP, URIC ####[place] [id number] [facility] Potassium [Moles/Vol] 4.3 mmol/L Normal 3.5-5.1 [facility] Comment on above: Performed By: #### B MP, URIC ####[address] [address] [facility] Sodium [Moles/Vol] 136 mmol/L Normal 136-145 [facility] Comment on above: Performed By: #### B MP, URIC ####[address] [address] [facility] Urea nitrogen [Mass/Vol] 94 mg/dL High 7-25 [facility] Comment on above: Performed By: #### B MP, URIC ####[address] [address] [facility] Basophils/100 WBC Manual cnt (Bld)Ordered By: Zoie Field on 12-30-2024 Basophils/100 WBC (Bld) Basophils/100 leukocytes in Blood by Manual count 0-2 [facility] Diff and CBCon 12-30-2024 Anisocytosis Ql (Bld) Slight Normal [facility] Comment on above: Performed By: #### D IFF CBC ####[place] [id number] [facility] Basophils/100 WBC (Bld) 1 % Normal 0-2 [facility] Comment on above: Performed By: #### D IFF CBC ####[place] [id number] [facility] Erythrocyte distribution width (RBC) [Ratio] 15.5 % High 12.0-14.8 [facility] Comment on above: Performed By: #### D IFF CBC ####[place] [id number] [facility] Hematocrit (Bld) [Volume fraction] 22.5 % Low 38.8-50.0 [facility] Comment on above: Performed By: #### D IFF CBC ####[address] [address] [facility] Hemoglobin (Bld) [Mass/Vol] 7.7 g/dL Low 13.0-17.0 [facility] Comment on above: Performed By: #### D IFF CBC ####[address] Hypochromasia Slight Normal [facility] Comment on above: Performed By: #### D IFF CBC ####[address] Lymphocytes/100 WBC (Bld) 9 % Low 18-42 [facility] Comment on above: Performed By: #### D IFF CBC ####[address] MCH (RBC) [Entitic mass] 32.4 pg Normal 27.5-35.2 [facility] Comment on above: Performed By: #### D IFF CBC ####[address] MCV (RBC) [Entitic vol] 94.0 fL Normal 83.5-101 T [facility] Physician [facility] Comment on above: Performed By: #### D IFF CBC ####[address] Mean Corpuscular HGB Conc 34.4 g/dL Normal 32.5-35.6 [facility] Comment on above: Performed By: #### D IFF CBC ####[address] Metamyelocytes 1 % High 0-0 [facility] Comment on above: Performed By: #### D IFF CBC ####[address] Monocytes/100 WBC (Bld) 6 % Normal 2-11 [facility] Comment on above: Performed By: #### D IFF CBC ####[address] Myelocytes 4 % High 0-0 [facility] Comment on above: Performed By: #### D IFF CBC ####[address] Platelet Estimate Normal Normal Normal [facility] Comment on above: Performed By: #### D IFF CBC ####[place] [address] [place] [phone] [facility] Platelet mean volume (Bld) [Entitic vol] 7.6 fL Normal 6.6-10.1 [facility] Comment on above: Performed By: #### D IFF CBC ####[place] [id number] [facility] Platelet Morphology Normal Normal Normal [facility] Comment on above: Result Comment: PERF ORMED BY: [facility] [address] [place] [address] PATHOLOGIST COST ESTIMATING ENGINEER KRISTEL LU M.D. Performed By: #### D IFF CBC ####[place] [id number] [facility] Platelets (Bld) [#/Vol] 241 10*3/uL Normal 150-450 [facility] Comment on above: Performed By: #### D IFF CBC ####[place] [id number] [facility] Polychromasia Slight Normal [facility] Comment on above: Performed By: #### D IFF CBC ####[place] [id number] [facility] RBC (Bld) [#/Vol] 2.39 10*6/uL Low 3.90-5.60 [facility] Comment on above: Performed By: #### D IFF CBC ####[place] [id number] [facility] Segmented neutrophils/100 WBC (Bld) 80 % High 50-70 [facility] Comment on above: Performed By: #### D IFF CBC ####[place] [id number] [facility] WBC (Bld) [#/Vol] 8.8 10*3/uL Normal 4.1-10.5 [facility] Comment on above: Performed By: #### D IFF CBC ####[place] [id number] [facility] Hypochromia LM Ql (Bld)Order ed By: Zoie Field on 12-30-2024 Hypochromia Ql (Bld) Hypochromia [Presence] in Blood by Light microscopy [facility] Polychromasia [Presence] in Blood by Light microscopyOrdered By: Zoie Field on 12-30-2024 Polychromasia LM Ql (Bld) Polychromasia [Presence] in Blood by Light microscopy [facility] US venous duplex LE BIon US venous duplex LE [facility] [place] [address] Ultrasound Report Signed Patient: Delano Ren MR#: [id number] [birth year] : 1940 Acct:[id number] Age/Sex: 84 / M ADM Date: 12/27/24 Loc: Room: [address] [place] [address] Type: ADM IN Attending Dr: Sotero Black MD Ordering Provider: Zoie Field APRN Date of Service: 12/30/24 US/US venous duplex LE BI: edema, pain Copies to: MD Zoie Abdi, INTEGRITY DIRECTOR BILATERAL LOWER EXTREMITY VENOUS DUPLEX INDICATION: Swollen [...] Dominik Lugo M.D.12/30/2024 12:28 PM Dictation Location: [place] [address] Tech: Cayla Rodriguez Transcribed By: CALI 12/30/24 1228 Dictated By: Dominik Lugo MD 12/30/24 1226 Signed By: 12/30/24 1228 Normal [facility] Urate [Mass/volume] in Serum or PlasmaOrdered By: Zoie Field on 12-30-2024 Urate [Mass/Vol] Urate [Mass/volume] in Serum or Plasma High 4.4-7.6 [facility] Uric Acidon 12-30-2024 Urate [Mass/Vol] 10.6 mg/dL High 4.4-7.6 [facility] Comment on above: Result Comment: PERF ORMED BY: [place] [address] PATHOLOGIST COST ESTIMATING ENGINEER KRISTEL LU M.D. Performed By: #### B MP, URIC ####[facility] X-ray reportOrdered By: Gianni Scott on 12-30-2024 Study report [facility] XR hip RT min 2V(w/wo pelvis )*on 12-30-2024 XR hip RT min 2V(w/wo pelvis)* [facility] [place] [address] XRay Report Signed Patient: Delano Ren MR#: [id number] [birth year] : 1940 Acct:[id number] Age/Sex: 84 / M ADM Date: 12/27/24 Loc: Room: [address] [place] [address] Type: ADM IN Attending Dr: Sotero Black [...] Scott Jr., D.O.12/30/2024 1:24 PM Dictation Location: [place] [address] Transcribed By: [facility] 12/30/24 1324 Dictated By: Sotero Scott Jr, DO 12/30/24 1323 Signed By: 12/30/24 1324 Normal [facility] Alanine aminotransferase [En zymatic activity/volume] in Serum or PlasmaOrdered By: Sotero Black on 12-28-2024 ALT [Catalytic activity/Vol] Alanine aminotransferase [Enzymatic activity/volume] in Serum or Plasma [facility] Alkaline phosphatase [Enzyma tic activity/volume] in Serum or PlasmaOrdered By: Sotero Black on 12-28-2024 ALP [Catalytic activity/Vol] Alkaline phosphatase [Enzymatic activity/volume] in Serum or Plasma [id number] [facility] Aspartate aminotransferase [ Enzymatic activity/volume] in Serum or PlasmaOrdered By: Sotero Black on 12-28-2024 AST [Catalytic activity/Vol] Aspartate aminotransferase [Enzymatic activity/volume] in Serum or Plasma 13-39 [facility] Bilirubin.total [Mass/volume ] in Serum or PlasmaOrdered By: Sotero Black on 12-28-2024 Bilirubin [Mass/Vol] Bilirubin.total [Mass/volume] in Serum or Plasma 0.3-1.0 [facility] Comprehensive Metabolic Pane vijay 12-28-2024 Albumin [Mass/Vol] 3.1 g/dL Low 3.5-5.7 [facility] Comment on above: Performed By: #### P AB, CMP, DIFF CBC ####[place] [id number] [address] Albumin/Globulin [Mass ratio] 1.1 {ratio} Normal [facility] Comment on above: Performed By: #### P AB, CMP, DIFF CBC ####[address] [address] [facility] ALP [Catalytic activity/Vol] 63 U/L Normal 34-104 [facility] Comment on above: Performed By: #### P AB, CMP, DIFF CBC ####[place] [address] [place] [address] [facility] ALT [Catalytic activity/Vol] 10 U/L Normal 7 The [facility] Comment on above: Performed By: #### P AB, CMP, DIFF CBC ####[address] [address] [facility] Anion gap [Moles/Vol] 10.2 mmol/L Normal 6.0-15.0 Th [facility] Comment on above: Performed By: #### P AB, CMP, DIFF CBC ####[address] AST [Catalytic activity/Vol] 33 U/L Normal 13-39 [facility] Comment on above: Performed By: #### P AB, CMP, DIFF CBC ####[address] Bilirubin [Mass/Vol] 0.7 mg/dL Normal 0.3-1.0 [facility] Comment on above: Performed By: #### P AB, CMP, DIFF CBC ####[address] Calcium [Mass/Vol] 9.8 mg/dL Normal 8.6-10.3 [facility] Comment on above: Performed By: #### P AB, CMP, DIFF CBC ####[address] Chloride [Moles/Vol] 94 mmol/L Low 98-107 [facility] Comment on above: Performed By: #### P AB, CMP, DIFF CBC ####[address] CO2 [Moles/Vol] 36.7 mmol/L High 21.0-31.0 [facility] Comment on above: Performed By: #### P AB, CMP, DIFF CBC ####[address] Creatinine [Mass/Vol] 2.96 mg/dL High 0.70-1.30 [facility] Comment on above: Performed By: #### P AB, CMP, DIFF CBC ####[address] Creatinine Clr Calc Pharmacy 22.60 Normal [facility] Comment on above: Performed By: #### P AB, CMP, DIFF CBC ####[address] Estimated GFR 20.434 mL/Min Normal [facility] Comment on above: Performed By: #### P AB, CMP, DIFF CBC ####[place] [id number] [facility] Globulin (S) [Mass/Vol] 2.8 g/dL Normal T he [facility] Comment on above: Performed By: #### P AB, CMP, DIFF CBC ####[address] Glucose [Mass/Vol] 135 mg/dL High 70-100 [facility] Comment on above: Result Comment: [place] Glucose Reference Range is dependent on time and content of last meal. Glucose of more than 200 mg/dL in a nonstressed, ambulatory subject supports the diagnosis of Diabetes Mellitus. ADA recommended reference range Performed By: #### P AB, CMP, DIFF CBC ####[address] Potassium [Moles/Vol] 3.9 mmol/L Normal 3.5-5.1 [facility] Comment on above: Performed By: #### P AB, CMP, DIFF CBC ####[address] Protein [Mass/Vol] 5.9 g/dL Low 6.4-8.9 [facility] Comment on above: Performed By: #### P AB, CMP, DIFF CBC ####[address] Sodium [Moles/Vol] 137 mmol/L Normal 136-145 [facility] Comment on above: Performed By: #### P AB, CMP, DIFF CBC ####[place] [id number] [facility] Urea nitrogen [Mass/Vol] 87 mg/dL High 7-25 [facility] Comment on above: Performed By: #### P AB, CMP, DIFF CBC ####[place] [id number] [facility] Diff and CBCon 12-28-2024 Anisocytosis Ql (Bld) Slight Normal [facility] Comment on above: Performed By: #### P AB, CMP, DIFF CBC ####[address] Erythrocyte distribution width (RBC) [Ratio] 15.4 % High 12.0-14.8 [facility] Comment on above: Performed By: #### P AB, CMP, DIFF CBC ####[address] Hematocrit (Bld) [Volume fraction] 24.0 % Low 38.8-50.0 [facility] Comment on above: Performed By: #### P AB, CMP, DIFF CBC ####[address] Hemoglobin (Bld) [Mass/Vol] 8.3 g/dL Low 13.0-17.0 [facility] Comment on above: Performed By: #### P AB, CMP, DIFF CBC ####[address] Hypochromasia Slight Normal [facility] Comment on above: Performed By: #### P AB, CMP, DIFF CBC ####[address] Lymphocytes/100 WBC (Bld) 9 % Low 18-42 [facility] Comment on above: Performed By: #### P AB, CMP, DIFF CBC ####[address] MCH (RBC) [Entitic mass] 32.3 pg Normal 27.5-35.2 [facility] Comment on above: Performed By: #### P AB, CMP, DIFF CBC ####[address] MCV (RBC) [Entitic vol] 93.8 fL Normal 83.5-101 T he [facility] Comment on above: Performed By: #### P AB, CMP, DIFF CBC ####[address] Mean Corpuscular HGB Conc 34.5 g/dL Normal 32.5-35.6 [facility] Comment on above: Performed By: #### P AB, CMP, DIFF CBC ####[address] Metamyelocytes 1 % High 0-0 [facility] Comment on above: Performed By: #### P AB, CMP, DIFF CBC ####[address] Monocytes/100 WBC (Bld) 7 % Normal 2-11 T he [facility] Comment on above: Performed By: #### P AB, CMP, DIFF CBC ####[address] Platelet Estimate Normal Normal Normal [facility] Comment on above: Performed By: #### P AB, CMP, DIFF CBC ####[address] Platelet mean volume (Bld) [Entitic vol] 7.7 fL Normal 6.6-10.1 [facility] Comment on above: Performed By: #### P AB, CMP, DIFF CBC ####[address] Platelet Morphology Normal Normal Normal [facility] Comment on above: Result Comment: PERF ORMED BY: [place] [address] PATHOLOGIST COST ESTIMATING ENGINEER KRISTEL LU M.D. Performed By: #### P AB, CMP, DIFF CBC ####[address] Platelets (Bld) [#/Vol] 178 10*3/uL Normal 150-450 [facility] Comment on above: Performed By: #### P AB, CMP, DIFF CBC ####[address] Polychromasia Slight Normal [facility] Comment on above: Performed By: #### P AB, CMP, DIFF CBC ####[address] RBC (Bld) [#/Vol] 2.56 10*6/uL Low 3.90-5.60 [facility] Comment on above: Performed By: #### P AB, CMP, DIFF CBC ####[place] [address] [address] Segmented neutrophils/100 WBC (Bld) 83 % High 50-70 [facility] Comment on above: Performed By: #### P AB, CMP, DIFF CBC ####[address] WBC (Bld) [#/Vol] 7.7 10*3/uL Normal 4.1-10.5 [facility] Comment on above: Performed By: #### P AB, CMP, DIFF CBC ####[place] [id number] [address] Globulin Calc (S) [Mass/Vol] Ordered By: Sotero Black on 12-28-2024 Globulin (S) [Mass/Vol] Serum globulin measurement by calculation (mass/volume) [facility] Prealbuminon 12-28-2024 Prealbumin [Mass/Vol] 13.6 mg/dL Low 17.0-34.0 [facility] Comment on above: Result Comment: PERF ORMED BY: [place] [address] PATHOLOGIST COST ESTIMATING ENGINEER KRISTEL LU M.D. Performed By: #### R ENAL, CBC #### [facility] [address] [place] [address] Prealbumin [Mass/volume] in Serum or PlasmaOrdered By: Sotero Black on 12-28-2024 Prealbumin [Mass/Vol] Prealbumin [Mass/volume] in Serum or Plasma Low 17.0-34.0 [facility] Protein [Mass/volume] in Ser um or PlasmaOrdered By: Sotero Black on 12-28-2024 Protein [Mass/Vol] Protein [Mass/volume] in Serum or Plasma Low 6.4-8.9 [facility] Serum or plasma albumin/glob ulin mass ratioOrdered By: Sotero Black on 12-28-2024 Albumin/Globulin [Mass ratio] Serum or plasma albumin/globulin mass ratio [facility] Basic Metabolic Panelon 12-14 Anion gap [Moles/Vol] 14.0 mmol/L Normal 6.0-15.0 Th e [facility] Comment on above: Performed By: #### C BCBISHOP MG, BMP ####[address] Calcium [Mass/Vol] 10.0 mg/dL Significant change down 8.6-10.3 [facility] Comment on above: Performed By: #### C BCBISHOP MG, BMP ####[address] Chloride [Moles/Vol] 91 mmol/L Low 98-107 [facility] Comment on above: Performed By: #### C BCBISHOP MG, BMP ####[address] CO2 [Moles/Vol] 34.8 mmol/L High 21.0-31.0 [facility] Comment on above: Performed By: #### C BCBISHOP MG, BMP ####[address] Creatinine [Mass/Vol] 3.30 mg/dL Significan t change up 0.70-1.30 [facility] Comment on above: Performed By: #### C BCBISHOP MG, BMP ####[address] Creatinine Clr Calc Pharmacy 20.71 Normal [facility] Comment on above: Performed By: #### C BCBISHOP MG, BMP ####[address] Estimated GFR 17.934 mL/Min Normal [facility] Comment on above: Performed By: #### C BCBISHOP MG, BMP ####[place] [id number] [facility] Glucose [Mass/Vol] 130 mg/dL High 70-100 [facility] Comment on above: Result Comment: [place] Glucose Reference Range is dependent on time and content of last meal. Glucose of more than 200 mg/dL in a nonstressed, ambulatory subject supports the diagnosis of Diabetes Mellitus. ADA recommended reference range Performed By: #### C BCNO, MG, BMP ####[facility] [address] [place] [id number] [facility] Potassium [Moles/Vol] 3.8 mmol/L Normal 3.5-5.1 [facility] Comment on above: Performed By: #### C BCNO, MG, BMP ####[facility] [address] [place] [id number] [facility] Sodium [Moles/Vol] 136 mmol/L Normal 136-145 [facility] Comment on above: Performed By: #### C BCNO, MG, BMP ####[facility] [address] [place] [id number] [facility] Urea nitrogen [Mass/Vol] 89 mg/dL High 7-25 [facility] Comment on above: Performed By: #### C BCNO, MG, BMP ####[facility] [address] [place] [id number] [facility] Calcium [Mass/volume] in Ser um or PlasmaOrdered By: Emile Reynolds on 12-27-2024 Calcium [Mass/Vol] Calcium [Mass/volume] in Serum or Plasma Significant change up 8.6-10.3 [facility] Comment on above: Delta: 8.1 on Carbon dioxide, total [Moles /volume] in Serum or PlasmaOrdered By: Emile Reynolds on 12-27-2024 CO2 [Moles/Vol] Carbon dioxide, total [Moles/volume] in Serum or Plasma High 21.0-31.0 [facility] Chloride [Moles/volume] in S alayna or PlasmaOrdered By: Emile Reynolds on 12-27-2024 Chloride [Moles/Vol] Chloride [Moles/volume] in Serum or Plasma Low 98-107 [facility] Creatinine [Mass/volume] in Serum or PlasmaOrdered By: Emile Reynolds on 12-27-2024 Creatinine [Mass/Vol] Creatinine [Mass/volume] in Serum or Plasma Significant change up 0.70-1.30 [facility] Comment on above: Delta: 3.82 on 12/26 Erythrocyte distribution wid th Auto (RBC) [Ratio]Ordered By: Emile Reynolds on 12-27-2024 Erythrocyte distribution width (RBC) [Ratio] Erythrocyte distribution width [Ratio] by Automated count High 12.0-14.8 [facility] Glucose [Mass/volume] in Ser um or PlasmaOrdered By: Emile Reynolds on 12-27-2024 Glucose [Mass/Vol] Glucose [Mass/volume] in Serum or Plasma High 70-100 [facility] Comment on above: ADA recommended refe rence rangeRandom Glucose Reference Range is dependent on time and content of last meal. Glucose of more than 200 mg/dL in a nonstressed, ambulatory subject supports the diagnosis of Diabetes Mellitus. Hematocrit Auto (Bld) [Volum e fraction]Ordered By: Emile Reynolds on 12-27-2024 Hematocrit (Bld) [Volume fraction] Hematocrit [Volume Fraction] of Blood by Automated count Low 38.8-50.0 [facility] Hemoglobin [Mass/volume] in BloodOrdered By: Emile Reynolds on 12-27-2024 Hemoglobin (Bld) [Mass/Vol] Hemoglobin [Mass/volume] in Blood Low 13.0-17.0 [facility] Hemogram CBC Without Diffon 12-27-2024 Erythrocyte distribution width (RBC) [Ratio] 15.8 % High 12.0-14.8 [facility] Comment on above: Performed By: #### C BCNO, MG, BMP ####[facility] Hematocrit (Bld) [Volume fraction] 24.7 % Low 38.8-50.0 [facility] Comment on above: Performed By: #### C BCNO, MG, BMP ####[facility] Hemoglobin (Bld) [Mass/Vol] 8.6 g/dL Low 13.0-17.0 [facility] Comment on above: Performed By: #### C BCNO, MG, BMP ####[facility] MCH (RBC) [Entitic mass] 32.0 pg Normal 27.5-35.2 [facility] Comment on above: Performed By: #### C BCNO, MG, BMP ####[address] MCV (RBC) [Entitic vol] 92.0 fL Normal 83.5-101 T he [facility] Comment on above: Performed By: #### C BCNO, MG, BMP ####[address] Mean Corpuscular HGB Conc 34.8 g/dL Normal 32.5-35.6 [facility] Comment on above: Performed By: #### C BCNO, MG, BMP ####[address] Platelet mean volume (Bld) [Entitic vol] 7.6 fL Normal 6.6-10.1 [facility] Comment on above: Result Comment: PERF ORMED BY: [facility] [address] [place] [address] PATHOLOGIST COST ESTIMATING ENGINEER KRISTEL LU M.D. Performed By: #### C BCNO, MG, BMP ####[address] Platelets (Bld) [#/Vol] 171 10*3/uL Normal 150-450 [facility] Comment on above: Performed By: #### C BCNO, MG, BMP ####[address] RBC (Bld) [#/Vol] 2.69 10*6/uL Low 3.90-5.60 [facility] Comment on above: Performed By: #### C BCNO, MG, BMP ####[address] WBC (Bld) [#/Vol] 7.9 10*3/uL Normal 4.1-10.5 [facility] Comment on above: Performed By: #### C BCNO, MG, BMP ####[address] [place] [address] [facility] Leukocytes [#/volume] correc bonnie for nucleated erythrocytes in Blood by Automated counOrdered By: Emile Reynolds on 12-27-2024 WBC corrected for nucl RBC Auto (Bld) [#/Vol] Leukocytes [#/volume] corrected for nucleated erythrocytes in Blood by Automated coun 4.1-10.5 [facility] MCH Auto (RBC) [Entitic mass ]Ordered By: Emile Reynolds on 12-27-2024 MCH (RBC) [Entitic mass] MCH [Entitic ma ss] by Automated count 27.5-35.2 [facility] MCHC Auto (RBC) [Mass/Vol]Or dered By: Emile Reynolds on 12-27-2024 MCHC (RBC) [Mass/Vol] MCHC [Mass/volume] by Automated count 32.5-35.6 [facility] MCV Auto (RBC) [Entitic vol] Ordered By: Emile Reynolds on 12-27-2024 MCV (RBC) [Entitic vol] MCV [Entitic vol ume] by Automated count 83.5-101 [facility] Magnesiumon 12-27-2024 Magnesium [Mass/Vol] 2.3 mg/dL Normal 1.9-2.7 [facility] Comment on above: Result Comment: PERF ORMED BY: [facility] [address] [facility] [place] [id number] PATHOLOGIST COST ESTIMATING ENGINEER KRISTEL LU M.D. Performed By: #### C BCNO, MG, BMP ####[facility] [address] [place] [address] [facility] Magnesium [Mass/volume] in S alayna or PlasmaOrdered By: Emile Reynolds on 12-27-2024 Magnesium [Mass/Vol] Magnesium [Mass/volume] in Serum or Plasma 1.9-2.7 [facility] No Panel InformationOrdered By: Emile Reynolds on 12-27-2024 Estimated GFR (CKD-EPI) 17.934 mL/Min [facility] Creatinine Clearance (Chem 20.71 [facility] 17.934 mL/Min [facility] 20.71 [facility] Platelet mean volume Auto (B ld) [Entitic vol]Ordered By: Emile Reynolds on 12-27-2024 Platelet mean volume (Bld) [Entitic vol] Platelet mean volume [Entitic volume] in Blood by Automated count 6.6-10.1 [facility] Platelets Auto (Bld) [#/Vol] Ordered By: Emile Reynolds on 12-27-2024 Platelets (Bld) [#/Vol] Platelets [#/vol ume] in Blood by Automated count 150-450 [facility] Potassium [Moles/volume] in Serum or PlasmaOrdered By: Emile Reynolds on 12-27-2024 Potassium [Moles/Vol] Potassium [Moles/volume] in Serum or Plasma 3.5-5.1 [facility] RBC Auto (Bld) [#/Vol]Ordere d By: Emile Reynolds on 12-27-2024 RBC (Bld) [#/Vol] Erythrocytes [#/volume] in Blood by Automated count Low 3.90-5.60 [facility] Serum or plasma anion gap de terminationOrdered By: Emile Reynolds on 12-27-2024 Anion gap [Moles/Vol] Serum or plasma anion gap determination 6.0-15.0 [facility] Sodium [Moles/volume] in Ser um or PlasmaOrdered By: Emile Reynolds on 12-27-2024 Sodium [Moles/Vol] Sodium [Moles/volume] in Serum or Plasma 136-145 [facility] Urea nitrogen [Mass/volume] in Serum or PlasmaOrdered By: Emile Reynolds on 12-27-2024 Urea nitrogen [Mass/Vol] Urea nitrogen [Mass/volume] in Serum or Plasma High 7-25 [facility] Basic Metabolic Panelon 12-14 Anion gap [Moles/Vol] 12.5 mmol/L Normal 6.0-15.0 Th e [facility] Comment on above: Performed By: #### B MP, MG, CBC ####[facility] [address] [place] [id number] [facility] Calcium [Mass/Vol] 8.1 mg/dL Low 8.6-10.3 [facility] Comment on above: Performed By: #### B MP, MG, CBC ####[address] Chloride [Moles/Vol] 96 mmol/L Low 98-107 [facility] Comment on above: Performed By: #### B MP, MG, CBC ####[address] CO2 [Moles/Vol] 31.5 mmol/L High 21.0-31.0 [facility] Comment on above: Performed By: #### B MP, MG, CBC ####[address] Creatinine [Mass/Vol] 3.82 mg/dL High 0.70-1.30 [facility] Comment on above: Performed By: #### B MP, MG, CBC ####[address] Creatinine Clr Calc Pharmacy 17.90 Normal [facility] Comment on above: Performed By: #### B MP, MG, CBC ####[address] Estimated GFR 15.046 mL/Min Normal [facility] Comment on above: Performed By: #### B MP, MG, CBC ####[address] Glucose [Mass/Vol] 111 mg/dL High 70-100 [facility] Comment on above: Result Comment: [place] Glucose Reference Range is dependent on time and content of last meal. Glucose of more than 200 mg/dL in a nonstressed, ambulatory subject supports the diagnosis of Diabetes Mellitus. ADA recommended reference range Performed By: #### B MP, MG, CBC ####[address] Potassium [Moles/Vol] 4.0 mmol/L Normal 3.5-5.1 [facility] Comment on above: Performed By: #### B MP, MG, CBC ####[place] [address] [place] Sodium [Moles/Vol] 136 mmol/L Normal 136-145 [facility] Comment on above: Performed By: #### B MP, MG, CBC ####[place] [id number] [address] Urea nitrogen [Mass/Vol] 85 mg/dL High 7-25 [facility] Comment on above: Performed By: #### B MP, MG, CBC ####[address] Basophils Auto (Bld) [#/Vol] Ordered By: Emile Reynolds on 12-26-2024 Basophils (Bld) [#/Vol] Automated basoph il count 0.0-0.2 [facility] Basophils/100 WBC Auto (Bld) Ordered By: Emile Reynolds on 12-26-2024 Basophils/100 WBC (Bld) Automated basophil % . [facility] Complete Blood Count Auto Di ffon 12-26-2024 Basophils (Bld) [#/Vol] 0.0 10*3/uL Normal 0.0-0.2 [facility] Comment on above: Result Comment: PERF ORMED BY: [facility] [address] [place] [address] PATHOLOGIST COST ESTIMATING ENGINEER KRISTEL LU M.D. Performed By: #### B MP, MG, CBC ####[address] Basophils/100 WBC (Bld) 0.2 % Normal . T mela [facility] Comment on above: Performed By: #### B MP, MG, CBC ####[address] Eosinophils (Bld) [#/Vol] 0.3 10*3/uL Normal 0.0-0.45 [facility] Comment on above: Performed By: #### B MP, MG, CBC ####[address] Eosinophils/100 WBC (Bld) 4.3 % Normal . [facility] Comment on above: Performed By: #### B MP, MG, CBC ####[address] Erythrocyte distribution width (RBC) [Ratio] 14.8 % Normal 12.0-14.8 [facility] Comment on above: Performed By: #### B MP, MG, CBC ####[address] Hematocrit (Bld) [Volume fraction] 21.1 % Low 38.8-50.0 [facility] Comment on above: Performed By: #### B MP, MG, CBC ####[address] Hemoglobin (Bld) [Mass/Vol] 7.4 g/dL Low 13.0-17.0 [facility] Comment on above: Performed By: #### B MP, MG, CBC ####[address] Lymphocytes (Bld) [#/Vol] 0.7 10*3/uL Low 1.00-4.8 [facility] Comment on above: Performed By: #### B MP, MG, CBC ####[address] Lymphocytes/100 WBC (Bld) 10.2 % Normal . [facility] Comment on above: Performed By: #### B MP, MG, CBC ####[address] MCH (RBC) [Entitic mass] 32.9 pg Normal 27.5-35.2 [facility] Comment on above: Performed By: #### B MP, MG, CBC ####[address] MCV (RBC) [Entitic vol] 93.7 fL Normal 83.5-101 T he [facility] Comment on above: Performed By: #### B MP, MG, CBC ####[address] Mean Corpuscular HGB Conc 35.1 g/dL Normal 32.5-35.6 [facility] Comment on above: Performed By: #### B MP, MG, CBC ####[address] Monocytes (Bld) [#/Vol] 0.9 10*3/uL High 0.0-0.8 [facility] Comment on above: Performed By: #### B MP, MG, CBC ####[address] Monocytes/100 WBC (Bld) 13.1 % Normal . [facility] Comment on above: Performed By: #### B MP, MG, CBC ####[address] Neutrophils (Bld) [#/Vol] 5.0 10*3/uL Normal 1.8-7.7 [facility] Comment on above: Performed By: #### B MP, MG, CBC ####[address] Neutrophils/100 WBC (Bld) 72.2 % Normal . [facility] Comment on above: Performed By: #### B MP, MG, CBC ####[address] NRBC% 0.1 /100{WBC} Normal 0-0.5 [facility] Comment on above: Performed By: #### B MP, MG, CBC ####[address] Platelet mean volume (Bld) [Entitic vol] 8.0 fL Normal 6.6-10.1 [facility] Comment on above: Performed By: #### B MP, MG, CBC ####[address] Platelets (Bld) [#/Vol] 142 10*3/uL Low 150-450 [facility] Comment on above: Performed By: #### B MP, MG, CBC ####[place] [id number] [place] RBC (Bld) [#/Vol] 2.25 10*6/uL Low 3.90-5.60 [facility] Comment on above: Performed By: #### B MP, MG, CBC ####[place] [id number] [address] WBC (Bld) [#/Vol] 7.0 10*3/uL Normal 4.1-10.5 The [facility] Comment on above: Performed By: #### B MP, MG, CBC ####[place] [id number] [address] Eosinophils Auto (Bld) [#/Vo l]Ordered By: Emile Reynolds on 12-26-2024 Eosinophils (Bld) [#/Vol] Automated eosi nophil count 0.0-0.45 [facility] Eosinophils/100 WBC Auto (Bl d)Ordered By: Emile Reynolds on 12-26-2024 Eosinophils/100 WBC (Bld) Automated eosi nophil % . [facility] Lymphocytes Auto (Bld) [#/Vo l]Ordered By: Emile Reynolds on 12-26-2024 Lymphocytes (Bld) [#/Vol] Lymphocytes [#/volume] in Blood by Automated count Low 1.00-4.8 [facility] Lymphocytes/100 WBC Auto (Bl d)Ordered By: Emile Reynolds on 12-26-2024 Lymphocytes/100 WBC (Bld) Lymphocytes/10 0 leukocytes in Blood by Automated count . [facility] Magnesiumon 12-26-2024 Magnesium [Mass/Vol] 2.5 mg/dL Normal 1.9-2.7 [facility] Comment on above: Result Comment: PERF ORMED BY: [facility] [address] [place] [id number] PATHOLOGIST COST ESTIMATING ENGINEER KRISTEL LU M.D. Performed By: #### B MP, MG, CBC ####[place] [id number] [address] Monocytes Auto (Bld) [#/Vol] Ordered By: Emile Reynolds on 12-26-2024 Monocytes (Bld) [#/Vol] Automated blood monocyte count High 0.0-0.8 [facility] Monocytes/100 WBC Auto (Bld) Ordered By: Emile Reynolds on 12-26-2024 Monocytes/100 WBC (Bld) Automated monocyte % . [facility] Neutrophils Auto (Bld) [#/Vo l]Ordered By: Emile Reynolds on 12-26-2024 Neutrophils (Bld) [#/Vol] Neutrophils [#/volume] in Blood by Automated count 1.8-7.7 [facility] Neutrophils/100 WBC Auto (Bl d)Ordered By: Emile Reynolds on 12-26-2024 Neutrophils/100 WBC (Bld) Automated neut rophil % . [facility] Nucleated erythrocytes [Pres ence] in Blood by Automated countOrdered By: Emile Reynolds on 12-26-2024 Nucleated RBC Auto Ql (Bld) Nucleated erythrocytes [Presence] in Blood by Automated count 0-0.5 [facility] Pathology study report docum entOrdered By: Rome Leslie on 12-26-2024 Pathology study [facility] Other Phone: WBC Auto (Bld) [#/Vol]Ordere d By: Emile Reynolds on 12-26-2024 WBC (Bld) [#/Vol] Leukocytes [#/volume] in Blood by Automated count 4.1-10.5 [facility] Basic Metabolic Panelon 12-14 Anion gap [Moles/Vol] 10.1 mmol/L Normal 6.0-15.0 Th e [facility] Comment on above: Performed By: #### R ENAL, CBC #### [facility] [address] [place] [address] [place] Calcium [Mass/Vol] 7.9 mg/dL Low 8.6-10.3 [facility] Comment on above: Performed By: #### R ENAL, CBC #### [facility] [address] [place] [id number] [place] Chloride [Moles/Vol] 97 mmol/L Low 98-107 [facility] Comment on above: Performed By: #### R ENAL, CBC #### [address] CO2 [Moles/Vol] 32.0 mmol/L High 21.0-31.0 [facility] Comment on above: Performed By: #### R ENAL, CBC #### [address] Creatinine [Mass/Vol] 3.34 mg/dL High 0.70-1.30 [facility] Comment on above: Performed By: #### R ENAL, CBC #### [place] [address] [place] Creatinine Clr Calc Pharmacy 20.47 Normal The [facility] Comment on above: Performed By: #### R ENAL, CBC #### [address] Estimated GFR 17.677 mL/Min Normal The [facility] Comment on above: Performed By: #### R ENAL, CBC #### [address] Glucose [Mass/Vol] 135 mg/dL High 70-100 [facility] Comment on above: Result Comment: [place] Glucose Reference Range is dependent on time and content of last meal. Glucose of more than 200 mg/dL in a nonstressed, ambulatory subject supports the diagnosis of Diabetes Mellitus. ADA recommended reference range Performed By: #### R ENAL, CBC #### [place] [address] [place] Potassium [Moles/Vol] 4.1 mmol/L Normal 3.5-5.1 [facility] Comment on above: Performed By: #### R ENAL, CBC #### [place] [address] [place] Sodium [Moles/Vol] 135 mmol/L Low 136-145 [facility] Comment on above: Performed By: #### R ENAL, CBC #### [address] Urea nitrogen [Mass/Vol] 81 mg/dL High 7-25 [facility] Comment on above: Performed By: #### R ENAL, CBC #### [address] Complete Blood Count Auto Di ffon 12-25-2024 Basophils (Bld) [#/Vol] 0.0 10*3/uL Normal 0.0-0.2 [facility] Comment on above: Result Comment: PERF ORMED BY: [place] [address] PATHOLOGIST COST ESTIMATING ENGINEER KRISTEL LU M.D. Performed By: #### R ENAL, CBC #### [address] Basophils/100 WBC (Bld) 0.2 % Normal . T mela [facility] Comment on above: Performed By: #### R ENAL, CBC #### [address] Eosinophils (Bld) [#/Vol] 0.1 10*3/uL Normal 0.0-0.45 [facility] Comment on above: Performed By: #### R ENAL, CBC #### [address] Eosinophils/100 WBC (Bld) 1.4 % Normal . [facility] Comment on above: Performed By: #### R ENAL, CBC #### [address] Erythrocyte distribution width (RBC) [Ratio] 14.6 % Normal 12.0-14.8 [facility] Comment on above: Performed By: #### R ENAL, CBC #### [address] Hematocrit (Bld) [Volume fraction] 20.9 % Low 38.8-50.0 [facility] Comment on above: Performed By: #### R ENAL, CBC #### [address] Hemoglobin (Bld) [Mass/Vol] 7.2 g/dL Low 13.0-17.0 [facility] Comment on above: Performed By: #### R ENAL, CBC #### [facility] [address] [place] [address] [place] Lymphocytes (Bld) [#/Vol] 0.7 10*3/uL Low 1.00-4.8 [facility] Comment on above: Performed By: #### R ENAL, CBC #### [facility] [address] [place] [id number] [place] Lymphocytes/100 WBC (Bld) 9.0 % Normal . [facility] Comment on above: Performed By: #### R ENAL, CBC #### [address] MCH (RBC) [Entitic mass] 32.8 pg Normal 27.5-35.2 [facility] Comment on above: Performed By: #### R ENAL, CBC #### [address] MCV (RBC) [Entitic vol] 95.3 fL Normal 83.5-101 T [facility] Comment on above: Performed By: #### R ENAL, CBC #### [address] Mean Corpuscular HGB Conc 34.4 g/dL Normal 32.5-35.6 [facility] Comment on above: Performed By: #### R ENAL, CBC #### [place] [address] [place] Monocytes (Bld) [#/Vol] 0.8 10*3/uL Normal 0.0-0.8 [facility] Comment on above: Performed By: #### R ENAL, CBC #### [place] [address] [place] Monocytes/100 WBC (Bld) 10.2 % Normal . [facility] Comment on above: Performed By: #### R ENAL, CBC #### [address] Neutrophils (Bld) [#/Vol] 6.3 10*3/uL Normal 1.8-7.7 [facility] Comment on above: Performed By: #### R ENAL, CBC #### [facility] [address] [place] [address] [place] Neutrophils/100 WBC (Bld) 79.2 % Normal . [facility] Comment on above: Performed By: #### R ENAL, CBC #### [facility] [address] NRBC% 0.1 /100{WBC} Normal 0-0.5 [facility] Comment on above: Performed By: #### R ENAL, CBC #### [facility] [address] Platelet mean volume (Bld) [Entitic vol] 8.0 fL Normal 6.6-10.1 [facility] Comment on above: Performed By: #### R ENAL, CBC #### [facility] [address] [place] [address] [place] Platelets (Bld) [#/Vol] 137 10*3/uL Low 150-450 The [facility] Comment on above: Performed By: #### R ENAL, CBC #### [facility] [address] [place] [id number] [place] RBC (Bld) [#/Vol] 2.19 10*6/uL Low 3.90-5.60 [facility] Comment on above: Performed By: #### R ENAL, CBC #### [facility] [address] [place] [address] [place] WBC (Bld) [#/Vol] 8.0 10*3/uL Normal 4.1-10.5 [facility] Comment on above: Performed By: #### R ENAL, CBC #### [facility] [address] Glucose Glucometer (dC) [M ass/Vol]Ordered By: Emile Reynolds on 12-25-2024 Glucose [Mass/Vol] Capillary blood glucose measurement by glucometer (mass/volume) [facility] Comment on above: Random Glucose Refer ence Range is dependent on time and content of last meal. Glucose of more than 200 mg/dL in a nonstressed, ambulatory subject supports the diagnosis of Diabetes Mellitus. Glucose Poct Glucometerson 0 12-25-2024 Glucose [Mass/Vol] 185 mg/dL Normal The [facility] Comment on above: Result Comment: [facility] Glucose Reference Range is dependent on time and content of last meal. Glucose of more than 200 mg/dL in a nonstressed, ambulatory subject supports the diagnosis of Diabetes Mellitus. PERFORMED BY: [place] [address] PATHOLOGIST COST ESTIMATING ENGINEER KRISTEL LU M.D. Performed By: #### R ENAL, CBC #### [address] Magnesiumon 12-25-2024 Magnesium [Mass/Vol] 2.5 mg/dL Normal 1.9-2.7 [facility] Comment on above: Result Comment: PERF ORMED BY: [place] [address] PATHOLOGIST COST ESTIMATING ENGINEER KRISTEL LU M.D. Performed By: #### R ADEEL, CBC #### [address] Basic Metabolic Panelon 12-14 Anion gap [Moles/Vol] 11.2 mmol/L Normal 6.0-15.0 Th [facility] Comment on above: Performed By: #### KOLBY Baxter, CBCNO ####[address] Calcium [Mass/Vol] 7.7 mg/dL Low 8.6-10.3 [facility] Comment on above: Performed By: #### KOLBY Baxter, CBCNO ####[place] [id number] [place] Chloride [Moles/Vol] 101 mmol/L Normal 98-107 [facility] Comment on above: Performed By: #### KOLBY Baxter, CBCNO ####[place] [id number] [place] CO2 [Moles/Vol] 30.1 mmol/L Normal 21.0-31.0 [facility] Comment on above: Performed By: #### KOLBY Baxter, CBCNO ####[place] [id number] [facility] Creatinine [Mass/Vol] 3.40 mg/dL High 0.70-1.30 [facility] Comment on above: Performed By: #### M KOLBY Narayan, CBCNO ####[place] [id number] [facility] Creatinine Clr Calc Pharmacy 20.11 Normal [facility] Comment on above: Performed By: #### KOLBY Baxter, CBCNO ####[address] Estimated GFR 17.303 mL/Min Normal [facility] Comment on above: Performed By: #### KOLBY Baxter, CBCNO ####[place] [id number] [facility] Glucose [Mass/Vol] 158 mg/dL High 70-100 [facility] Comment on above: Result Comment: [facility] Glucose Reference Range is dependent on time and content of last meal. Glucose of more than 200 mg/dL in a nonstressed, ambulatory subject supports the diagnosis of Diabetes Mellitus. ADA recommended reference range Performed By: #### KOLBY Baxter, CBCNO ####[place] [id number] [facility] Potassium [Moles/Vol] 4.3 mmol/L Normal 3.5-5.1 The [facility] Comment on above: Performed By: #### KOLBY Baxter, CBCNO ####[place] [id number] [facility] Sodium [Moles/Vol] 138 mmol/L Normal 136-145 The [facility] Comment on above: Performed By: #### KOLBY Baxter, CBCNO ####[place] [id number] [facility] Urea nitrogen [Mass/Vol] 70 mg/dL High 7-25 [facility] Comment on above: Performed By: #### KOLBY Baxter, CBCNO ####[address] Hemogram CBC Without Diffon 12-24-2024 Erythrocyte distribution width (RBC) [Ratio] 14.2 % Normal 12.0-14.8 [facility] Comment on above: Performed By: #### M Sylvain, BMP, CBCNO ####[address] Hematocrit (Bld) [Volume fraction] 25.3 % Low 38.8-50.0 [facility] Comment on above: Performed By: #### M Sylvain, BMP, CBCNO ####[address] Hemoglobin (Bld) [Mass/Vol] 8.7 g/dL Low 13.0-17.0 [facility] Comment on above: Performed By: #### Canelo Narayan, BMP, CBCNO ####[address] MCH (RBC) [Entitic mass] 32.8 pg Normal 27.5-35.2 [facility] Comment on above: Performed By: #### Canelo Narayan, BMP, CBCNO ####[address] MCV (RBC) [Entitic vol] 95.5 fL Normal 83.5-101 T he [facility] Comment on above: Performed By: #### Canelo Narayan, BMP, CBCNO ####[address] Mean Corpuscular HGB Conc 34.3 g/dL Normal 32.5-35.6 [facility] Comment on above: Performed By: #### M G, BMP, CBCNO ####[address] Platelet mean volume (Bld) [Entitic vol] 7.7 fL Normal 6.6-10.1 [facility] Comment on above: Result Comment: PERF ORMED BY: [facility] [address] [place] [address] PATHOLOGIST COST ESTIMATING ENGINEER KRISTEL LU M.D. Performed By: #### KOLBY Baxter, CBCNO ####[place] [id number] [address] Platelets (Bld) [#/Vol] 143 10*3/uL Low 150-450 [facility] Comment on above: Performed By: #### KOLBY Baxter, CBCNO ####[address] RBC (Bld) [#/Vol] 2.64 10*6/uL Low 3.90-5.60 [facility] Comment on above: Performed By: #### KOLBY Baxter, CBCNO ####[address] WBC (Bld) [#/Vol] 10.8 10*3/uL High 4.1-10.5 [facility] Comment on above: Performed By: #### KOLBY Baxter, CBCNO ####[address] Magnesiumon 12-24-2024 Magnesium [Mass/Vol] 2.4 mg/dL Normal 1.9-2.7 [facility] Comment on above: Result Comment: PERF ORMED BY: [facility] [address] [place] [address] PATHOLOGIST COST ESTIMATING ENGINEER KRISTEL LU M.D. Performed By: #### KOLBY Baxter, CBCNO ####[address] Appearance of UrineOrdered B y: Emilebreana Reynolds on 12-23-2024 Appearance (U) Urine appearance Clear [facility] Arterial Blood Gason 025 ABG Base Excess -0.9 mmol/L Normal -3.0-3.0 [facility] Comment on above: Performed By: #### A BG ####Point of Care testing, ABG Frac Inspired O2 100 % Normal [facility] Comment on above: Performed By: #### A BG ####Point of Care testing, ABG Oxygen Content 6.4 mmol/L Low 6.6-9.7 [facility] Comment on above: Performed By: #### A BG ####Point of Care testing, ABG Oxygen Saturation 98.8 % Normal 95.0-100.0 [facility] Comment on above: Performed By: #### A BG ####Point of Care testing, ABG PCO2 37.6 mm[Hg] Normal 35.0-45.0 [facility] Comment on above: Performed By: #### A BG ####Point of Care testing, ABG PEEP 6 cmH20 Normal [facility] Comment on above: Performed By: #### A BG ####Point of Care testing, ABG PH 7.41 Normal 7.35-7.45 [facility] Comment on above: Performed By: #### A BG ####Point of Care testing, ABG PO2 170.6 mm[Hg] Off scale high 80.0-100.0 [facility] Comment on above: Performed By: #### A BG ####Point of Care testing, ABG Pressure Support 6.0 cmH20 Normal [facility] Comment on above: Performed By: #### A BG ####Point of Care testing, Oxygen Device BiPAP Normal [facility] Comment on above: Performed By: #### A BG ####Point of Care testing, Respiratory Critical Normal [facility] Comment on above: Result Comment: Crit ical Value called on: 12/23/2024 at 21:14 PERFORMED BY: [facility] [address] [place] [address] PATHOLOGIST COST ESTIMATING ENGINEER KRISTEL LU M.D. Performed By: #### A BG ####Point of Care testing, VBG Draw Site Right Radial Normal [facility] Comment on above: Performed By: #### A BG ####Point of Care testing, Arterial Blood GasOrdered By : Emile Reynolds on 12-23-2024 CO2 [Moles/Vol] 24.6 mmol/L Normal 23.0-27.0 [facility] Comment on above: Performed By: #### A BG ####Point of Care testing, HCO3 (Bld) [Moles/Vol] 23.5 mmol/L Normal 23.0-29.0 [facility] Comment on above: Performed By: #### A BG ####Point of Care testing, Bacteria [Presence] in Urine by AutomatedOrdered By: Emile Reynolds on 12-23-2024 Bacteria Auto Ql (U) Bacteria [Presence] in Urine by Automated High None Seen [facility] Bilirubin Test strip Ql (U)O rdered By: Emile Reynolds on 12-23-2024 Bilirubin Ql (U) Bilirubin.total [Presence] in Urine by Test strip Negative [facility] Color Auto (U)Ordered By: Nirav Reynolds on 12-23-2024 Color (U) Color of Urine by Auto Yellow [facility] Complete Blood Count Auto Di ffon 12-23-2024 Basophils (Bld) [#/Vol] 0.0 10*3/uL Normal 0.0-0.2 [facility] Comment on above: Order Comment: Comme nt send as soon as patient arrives Result Comment: PERF ORMED BY: [place] [address] PATHOLOGIST COST ESTIMATING ENGINEER KRISTEL LU M.D. Performed By: #### C BC #### [facility] [address] [place] [address] [place] Basophils/100 WBC (Bld) 0.2 % Normal . T mela [facility] Comment on above: Order Comment: Comme nt send as soon as patient arrives Performed By: #### C BC #### [facility] [address] [place] [address] [place] Eosinophils (Bld) [#/Vol] 0.0 10*3/uL Normal 0.0-0.45 [facility] Comment on above: Order Comment: Comme nt send as soon as patient arrives Performed By: #### C BC #### [facility] [address] [place] [address] [place] Eosinophils/100 WBC (Bld) 0.1 % Normal . [facility] Comment on above: Order Comment: Comme nt send as soon as patient arrives Performed By: #### C BC #### [address] Erythrocyte distribution width (RBC) [Ratio] 14.8 % Normal 12.0-14.8 [facility] Comment on above: Order Comment: Comme nt send as soon as patient arrives Performed By: #### C BC #### [address] Hematocrit (Bld) [Volume fraction] 29.5 % Low 38.8-50.0 [facility] Comment on above: Order Comment: Comme nt send as soon as patient arrives Performed By: #### C BC #### [address] Hemoglobin (Bld) [Mass/Vol] 9.9 g/dL Low 13.0-17.0 [facility] Comment on above: Order Comment: Comme nt send as soon as patient arrives Performed By: #### C BC #### [address] Lymphocytes (Bld) [#/Vol] 0.4 10*3/uL Low 1.00-4.8 [facility] Comment on above: Order Comment: Comme nt send as soon as patient arrives Performed By: #### C BC #### [address] Lymphocytes/100 WBC (Bld) 3.3 % Normal . [facility] Comment on above: Order Comment: Comme nt send as soon as patient arrives Performed By: #### C BC #### [address] MCH (RBC) [Entitic mass] 31.9 pg Normal 27.5-35.2 [facility] Comment on above: Order Comment: Comme nt send as soon as patient arrives Performed By: #### C BC #### [address] MCV (RBC) [Entitic vol] 95.5 fL Normal 83.5-101 T mela [facility] Comment on above: Order Comment: Comme nt send as soon as patient arrives Performed By: #### C BC #### [address] Mean Corpuscular HGB Conc 33.4 g/dL Normal 32.5-35.6 [facility] Comment on above: Order Comment: Comme nt send as soon as patient arrives Performed By: #### C BC #### [address] Monocytes (Bld) [#/Vol] 0.8 10*3/uL Normal 0.0-0.8 [facility] Comment on above: Order Comment: Comme nt send as soon as patient arrives Performed By: #### C BC #### [address] Monocytes/100 WBC (Bld) 6.6 % Normal . T mela [facility] Comment on above: Order Comment: Comme nt send as soon as patient arrives Performed By: #### C BC #### [address] Neutrophils (Bld) [#/Vol] 11.3 10*3/uL High 1.8-7.7 [facility] Comment on above: Order Comment: Comme nt send as soon as patient arrives Performed By: #### C BC #### [address] Neutrophils/100 WBC (Bld) 89.8 % Normal . [facility] Comment on above: Order Comment: Comme nt send as soon as patient arrives Performed By: #### C BC #### [address] NRBC% 0.0 /100{WBC} Normal 0-0.5 [facility] Comment on above: Order Comment: Comme nt send as soon as patient arrives Performed By: #### C BC #### [address] Platelet mean volume (Bld) [Entitic vol] 7.5 fL Normal 6.6-10.1 [facility] Comment on above: Order Comment: Comme nt send as soon as patient arrives Performed By: #### C BC #### [address] Platelets (Bld) [#/Vol] 149 10*3/uL Low 150-450 [facility] Comment on above: Order Comment: Comme nt send as soon as patient arrives Performed By: #### C BC #### [address] RBC (Bld) [#/Vol] 3.09 10*6/uL Low 3.90-5.60 [facility] Comment on above: Order Comment: Comme nt send as soon as patient arrives Performed By: #### C BC #### [address] WBC (Bld) [#/Vol] 12.5 10*3/uL High 4.1-10.5 [facility] Comment on above: Order Comment: Comme nt send as soon as patient arrives Performed By: #### C BC #### [address] Dipstick and Microscopicon 0 12-23-2024 Appearance (U) Clear Normal Clear [facility] Comment on above: Order Comment: Comme nt results to PCP Dr Linda and [facility] Performed By: #### R ENAL, CBC #### [address] Bacteria,Urine 1+ High None Seen [facility] Comment on above: Order Comment: Comme nt results to PCP Dr Linda and [facility] Performed By: #### R ENKIMMIE CBC #### [place] [address] [place] Bilirubin,Urine Negative Normal Negative [facility] Comment on above: Order Comment: Comme nt results to PCP Dr Linda and [facility] Performed By: #### R ENKIMMIE, CBC #### [address] Color (U) Light-Yellow Normal Yellow [facility] Comment on above: Order Comment: Comme nt results to PCP Dr Linda and [facility] Performed By: #### R ENAL, CBC #### [address] Glucose Ql (U) Normal Normal Normal [facility] Comment on above: Order Comment: Comme nt results to PCP Dr Linda and [facility] Performed By: #### R ENAL, CBC #### [address] Hyaline Casts,Urine None Normal 0-8 [facility] Comment on above: Order Comment: Comme nt results to PCP Dr Linda and [facility] Performed By: #### R ENAL, CBC #### [address] Ketones Ql (U) Negative Normal Negative [facility] Comment on above: Order Comment: Comme nt results to PCP Dr Linda and [facility] Performed By: #### R ENAL, CBC #### [address] Leukocyte esterase Test strip Ql (U) Negative Normal Negative [facility] Comment on above: Order Comment: Comme nt results to PCP Dr Linda and [facility] Performed By: #### R ENAL, CBC #### [address] Mucus,Urine Rare Normal [facility] Comment on above: Order Comment: Comme nt results to PCP Dr Linda and [facility] Result Comment: PERF ORMED BY: [place] [address] PATHOLOGIST COST ESTIMATING ENGINEER KRISTEL LU M.D. Performed By: #### R ENAL, CBC #### [address] Nitrite,Urine Negative Normal Negative [facility] Comment on above: Order Comment: Comme nt results to PCP Dr Linda and [facility] Performed By: #### R ENAL, CBC #### [address] Occult Blood,Urine Trace High Negative [facility] Comment on above: Order Comment: Comme nt results to PCP Dr Linda and [facility] Result Comment: PERF ORMED BY: [place] [address] PATHOLOGIST COST ESTIMATING ENGINEER KRISTEL LU M.D. Performed By: #### R ENAL, CBC #### [address] pH (U) 5.5 [pH] Normal 5.0-9.0 [facility] Comment on above: Order Comment: Comme nt results to PCP Dr Linda and [facility] Performed By: #### R ENAL, CBC #### [address] Protein (U) [Mass/Vol] 30 mg/dL High Negative Th e [facility] Comment on above: Order Comment: Comme nt results to PCP Dr Linda and [facility] Performed By: #### R ENAL, CBC #### [address] RBC,Urine 5-9 High 0-4 [facility] Comment on above: Order Comment: Comme nt results to PCP Dr Linda and [facility] Performed By: #### R ENAL, CBC #### [address] Specificy [place],Urine 1.017 Normal 1.001-1.030 [facility] Comment on above: Order Comment: Comme nt results to PCP Dr Linda and [facility] Performed By: #### R ENAL, CBC #### [address] Squamous Epithelial Cell,Urine 1-2 Normal 0-2 [facility] Comment on above: Order Comment: Comme nt results to PCP Dr Linda and [facility] Performed By: #### R ENAL, CBC #### [address] Urobilinogen,Urine Normal Normal Normal [facility] Comment on above: Order Comment: Comme nt results to PCP Dr Linda and [facility] Performed By: #### R ENAL, CBC #### [facility] [address] WBC,Urine 5-9 High 0-4 [facility] Comment on above: Order Comment: Comme nt results to PCP Dr Linda and [facility] Performed By: #### R ENAL, CBC #### [facility] [address] Epithelial cells.squamous [# /area] in Urine sediment by Automated countOrdered By: Emile Reynolds on 12-23-2024 Epithelial cells.squamous Auto (Urine sed) [#/Area] Epithelial cells.squamous [#/area] in Urine sediment by Automated count 0-2 [facility] Erythrocytes [#/area] in Uri ne sediment by Automated countOrdered By: Emile Reynolds on 12-23-2024 RBC Auto (Urine sed) [#/Area] Erythrocytes [#/area] in Urine sediment by Automated count High 0-4 [facility] Glucose Poct Glucometerson 0 12-23-2024 Glucose [Mass/Vol] 145 mg/dL Normal [facility] Comment on above: Result Comment: [facility] Glucose Reference Range is dependent on time and content of last meal. Glucose of more than 200 mg/dL in a nonstressed, ambulatory subject supports the diagnosis of Diabetes Mellitus. PERFORMED BY: [place] [address] PATHOLOGIST COST ESTIMATING ENGINEER KRISTEL LU M.D. Performed By: #### R ENAL, CBC #### [address] Glucose [Mass/volume] in Uri ne by Test stripOrdered By: Emile Reynolds on 12-23-2024 Glucose Test strip (U) [Mass/Vol] Glucose [Mass/volume] in Urine by Test strip Normal [facility] Hemoglobin Test strip Ql (U) Ordered By: Emile Reynolds on 12-23-2024 Hemoglobin Ql (U) Hemoglobin [Presence] in Urine by Test strip High Negative [facility] Hyaline casts [#/area] in Ur ine sediment by Automated countOrdered By: Emile Reynolds on 12-23-2024 Hyaline casts Auto (Urine sed) [#/Area] Hyaline casts [#/area] in Urine sediment by Automated count 0-8 [facility] Ketones Test strip Ql (U)Ord ered By: Emile Reynolds on 12-23-2024 Ketones Ql (U) Ketones [Presence] in Urine by Test strip Negative [facility] Vijay 12-23-2024 L Specimen: [id number] Received: 12/23/24 Status: ДМИТРИЙ Barry Num: [id number] Spec Type: Surgical Subm Dr: Walker Soria MD Tissues: A Femoral Head - Fracture (RT HIP) Procedures: HE/2, Gross/Micro L4, Decalcification Age/ Patient Sex Location Account Attending Physician Delano Ren 84/M 4N [id number] Emile Reynolds, SPEC NUM: [id number] RECD: 12/23/24 STATUS: ДМИТРИЙ BARRY NUM: [id number] LLOYD: 12/23/24 DR: Walker Soria MD ENTERED: 12/23/24 [facility] DR: RHIANNA TYPE: Surgical DEPT: S [...] femoral head is staley, firm and uniform. Laborer Plumbing sections are submitted in A1?A2 after decalcification in rapid Stephon immuno. (2, , [id number] A) Microscopic Description Microscopic examination is performed. Specimen: [id number] Received: 12/23/24 Status: ДМИТРИЙ Barry Num: [id number] Spec Type: Surgical Subm Dr: Walker Soria MD Tissues: A Femoral Head - Fracture (RT HIP) Procedures: HE/2, Gross/Micro L4, Decalcification Patient: Delano Ren [id number] (Continued) Specimen: [id number] Received: 12/23/24 (Continued) Signed (signature on file) Rome Leslie MD 12/26/24 1327 Specimen: [id number] Received: 12/23/24 Status: ДИМТРИЙ Barry Num: [id number] Spec Type: Surgical Subm Dr: Walker Soria MD Tissues: A Femoral Head - Fracture (RT HIP) Procedures: HE/2, Gross/Micro L4, Decalcification Patient: Delano Ren [id number] (Continued) Specimen: [id number] Received: 12/23/24 (Continued) CPT Codes 65518 Specimen: [id number] Received: 12/23/24 Status: ДМИТРИЙ Barry Num: [id number] Spec Type: Surgical Subm Dr: Walker Soria MD Tissues: A Femoral Head - Fracture (RT HIP) Procedures: HE/2, Gross/Micro L4, Decalcification Patient: Delano Ren [id number] (Continued) Signed (signature on file) Rome Leslie MD 12/26/24 1327 Normal [facility] LeukoReduced RBCon LeukoReduced RBC TRANSFUSED 12/26/24 1424 Normal [facility] Leukocyte esterase [Presence ] in Urine by Test stripOrdered By: Emile Reynolds on 12-23-2024 Leukocyte esterase Test strip Ql (U) Leukocyte esterase [Presence] in Urine by Test strip Negative [facility] Leukocytes [#/area] in Urine sediment by Automated countOrdered By: Emile Reynolds on 12-23-2024 WBC Auto (Urine sed) [#/Area] Leukocytes [#/area] in Urine sediment by Automated count High 0-4 [facility] Mucus [Presence] in Urine by AutomatedOrdered By: Emile Reynolds on 12-23-2024 Mucus Auto Ql (U) Mucus [Presence] in Urine by Automated [facility] Nitrite Test strip Ql (U)Ord ered By: Emile Reynolds on 12-23-2024 Nitrite Ql (U) Nitrite [Presence] in Urine by Test strip Negative [facility] No Panel InformationOrdered By: Emile Reynolds on 12-23-2024 Arterial Blood Base Excess -0.9 mmol/L -3.0-3.0 [facility] Arterial Blood Oxygen Content 6.4 mmol/L Low 6.6-9.7 [facility] Arterial Blood Oxygen Saturation 98.8 % 95.0-100.0 [facility] Arterial Blood Partial Pressure CO2 37.6 mm[Hg] 35.0-45.0 [facility] Arterial Blood Partial Pressure O2 170.6 mm[Hg] Critically high 80.0-100.0 [facility] Arterial Blood pH 7.41 7.35-7.45 [facility] Blood Gas Critical Value See comment [facility] Comment on above: Critical Value stack d on: 12/23/2024 at 21:14 Blood Gas PEEP 6 cmH2O [facility] Blood Gas Pressure Support 6.0 cmH2O [facility] Blood Gas Sample Site Right radial [facility] FiO2 100 % [facility] Oxygen Delivery Device Bipap [facility] 7.41 7.35-7.45 [facility] 37.6 mm[Hg] 35.0-45.0 [facility] 170.6 mm[Hg] Critically high 80.0-100.0 [facility] 23.5 mmol/L 23.0-29.0 [facility] -0.9 mmol/L -3.0-3.0 [facility] 98.8 % 95.0-100.0 [facility] 6.4 mmol/L Low 6.6-9.7 [facility] 24.6 mmol/L 23.0-27.0 [facility] 100 % [facility] 6 cmH2O [facility] 6.0 cmH2O [facility] Right radial [facility] Bipap [facility] See comment [facility] Protein Test strip (U) [Mass /Vol]Ordered By: Emile Reynolds on 12-23-2024 Protein (U) [Mass/Vol] Protein [Mass/volume] in Urine by Test strip High Negative [facility] Specific gravity Test strip (U) [Rel density]Ordered By: Emile Reynolds on 12-23-2024 Specific gravity (U) [Rel density] Specific gravity of Urine by Test strip 1.001-1.030 [facility] Type and Screenon 12-23-2024 ABO and Rh group Nom (Bld) Blood group O Rh(D) positive Normal [facility] Comment on above: Order Comment: expir ing BB band Transfuse now? Y Number of units to transfuse now? 1 Transfuse now? Y Number of units to transfuse now? 1 Result Comment: PERF ORMED BY: [address] [address] PATHOLOGIST COST ESTIMATING ENGINEER KRISTEL LU M.D. Urobilinogen Test strip (U) [Mass/Vol]Ordered By: Emile Reynolds on 12-23-2024 Urobilinogen (U) [Mass/Vol] Urobilinogen [Mass/volume] in Urine by Test strip Normal [facility] X-ray reportOrdered By: Juan Alberto Hamm on 12-23-2024 Study report [facility] Main [place] [address] [place] [address] XRay Report Signed Patient: Delano Ren MR#: [id number] : 1940 Acct:[id number] Age/Sex: 84 / M ADM Date: 5 Loc: Room: [address] [place] [address] Type: ADM IN Attending Dr: Emile Reynolds DO Copies to: DO Emile Giron DO~ Ordering Provider: Rcahid Adhikari DO Date of Service: 12/23/24 XR/XR [...] Dominik Hamm M.D.12/23/2024 9:17 PM Dictation Location: [place] [address] Transcribed By: [facility] 12/23/242116 Dictated By: Dominik Hamm DO 12/23/242114 Signed By: 12/23/242116 [facility] X-ray reportOrdered By: Gianni Scott on 12-23-2024 Study report [facility] Main [address] [address] XRay Report Signed Patient: Delano Ren MR#: [id number] : 1940 Acct:[id number] Age/Sex: 84 / M ADM Date: 5 Loc: Room: [address] [place] [address] Type: ADM IN Attending Dr: Emile Reynolds DO Copies to: DO Walker Bhat MD~ Ordering Provider: Walker Soria MD Date of Service: 12/23/24 XR/XR hip RT min 2V(w/wo pelvis)*: Hip Fracture Post op ([id number]) XR/XR knee RT 2V: PAIN ([id number]) XR/XR ankle RT 2V: PAIN RIGHT HIP [...] Scott Jr., D.O.12/23/2024 2:26 PM Dictation Location: [place] [address] Transcribed By: [facility] 12/23/24 142 Dictated By: Sotero Scott Jr, DO 12/23/24 142 Signed By: 12/23/24 142 [facility] Study report [facility] Main [place] [address] [place] [address] XRay Report Signed Patient: Delano Ren MR#: [id number] : 1940 Acct:[id number] Age/Sex: 84 / M ADM Date: 5 Loc: 4N Room: [address] [place] [address] Type: ADM IN Attending Dr: Emile Reynolds DO Copies to: MD Emile Gabriel DO~ Ordering Provider: Mazin Erickson MD Date of [...] RESOLUTION. Impression dictated by: Sotero Scott Jr., D.OKeo12/23/2024 9:50 AM Dictation Location: [place] [address] Transcribed By: [facility] 12/23/24 0950 Dictated By: Sotero Scott Jr, DO 12/23/24 0950 Signed By: 12/23/24 0950 [facility] XR ankle RT 2Von 12-23-2024 XR ankle RT 2V [facility] [place] [address] XRay Report Signed Patient: Delano Ren MR#: [id number] 24 : 1940 Acct:[id number] Age/Sex: 84 / M ADM Date: 12/21/24 Loc: 4N Room: [address] [place] [address] Type: ADM IN Attending Dr: Emile Reynolds DO Copies to: DO Walker Bhat MD Ordering Provider: Walker Soria MD Date of Service: 12/23/24 XR/XR hip RT min 2V(w/wo pelvis)*: Hip Fracture Post op ([id number]) XR/XR knee RT 2V: PAIN ([id number]) XR/XR ankle RT 2V: PAIN RIGHT HIP [...] Scott Jr., DKeoOKeo12/23/2024 2:26 PM Dictation Location: [place] [address] Transcribed By: [facility] 12/23/24 1426 Dictated By: Sotero Scott Jr, DO 12/23/24 1424 Signed By: 12/23/24 1426 Normal [facility] XR chest 1V portableon 12-23 XR chest 1V portable [facility] Main [place] [address] [place] [address] XRay Report Signed Patient: Delano Ren MR#: [id number] [birth year] : 1940 Acct:[id number] Age/Sex: 84 / M ADM Date: 12/21/24 Loc: Room: [address] [place] [address] Type: ADM IN Attending Dr: Emile Reynolds [...] Dominik Hamm M.D.12/23/2024 9:17 PM Dictation Location: [facility] Transcribed By: CALI 12/23/242116 Dictated By: Dominik Hamm DO 12/23/242114 Signed By: 12/23/242116 Normal [facility] XR chest 1V portable [facility] [place] [address] XRay Report Signed Patient: Delano Ren MR#: [id number] 24 : 1940 Acct:[id number] Age/Sex: 84 / M ADM Date: 12/21/24 Loc: Room: [address] [place] [address] Type: ADM IN Attending Dr: Emile Reynolds DO Copies to: MD Emile Gabriel DO [...] RESOLUTION. Impression dictated by: Sotero Scott Jr., DKeoOKeo12/23/2024 9:50 AM Dictation Location: [facility] Transcribed By: CALI 12/23/24949 Dictated By: Sotero Scott Jr, DO 12/23/24949 Signed By: 12/23/24949 Normal [facility] pH Test strip (U)Ordered By: Emile Reynolds on 12-23-2024 pH (U) pH of Urine by Test strip 5.0-9.0 [facility] Basic Metabolic Panelon Anion gap [Moles/Vol] 11.3 mmol/L Normal 6.0-15.0 Th e [facility] Comment on above: Performed By: #### R ENAL, CBC #### [address] Calcium [Mass/Vol] 8.4 mg/dL Low 8.6-10.3 [facility] Comment on above: Performed By: #### R ENAL, CBC #### [address] Chloride [Moles/Vol] 104 mmol/L Normal 98-107 [facility] Comment on above: Performed By: #### R ENAL, CBC #### [address] CO2 [Moles/Vol] 30.4 mmol/L Normal 21.0-31.0 [facility] Comment on above: Performed By: #### R ENAL, CBC #### [address] Creatinine [Mass/Vol] 2.61 mg/dL High 0.70-1.30 [facility] Comment on above: Performed By: #### R ENAL, CBC #### [place] [address] [place] Creatinine Clr Calc Pharmacy 25.99 Normal [facility] Comment on above: Result Comment: PERF ORMED BY: [place] [address] PATHOLOGIST COST ESTIMATING ENGINEER KRISTEL LU M.D. Performed By: #### R ENAL, CBC #### [address] Estimated GFR 23.765 mL/Min Normal [facility] Comment on above: Performed By: #### R ENAL, CBC #### [address] Glucose [Mass/Vol] 143 mg/dL High 70-100 [facility] Comment on above: Result Comment: [place] [facility] Glucose Reference Range is dependent on time and content of last meal. Glucose of more than 200 mg/dL in a nonstressed, ambulatory subject supports the diagnosis of Diabetes Mellitus. ADA recommended reference range Performed By: #### R ENAL, CBC #### [address] Potassium [Moles/Vol] 3.7 mmol/L Normal 3.5-5.1 [facility] Comment on above: Performed By: #### R ENKIMMIE, CBC #### [address] Sodium [Moles/Vol] 142 mmol/L Normal 136-145 [facility] Comment on above: Performed By: #### R ENAL, CBC #### [address] Urea nitrogen [Mass/Vol] 58 mg/dL High 7-25 [facility] Comment on above: Performed By: #### R ENKIMMIE, CBC #### [address] Complete Blood Count Auto Di ffon 12-22-2024 Basophils (Bld) [#/Vol] 0.1 10*3/uL Normal 0.0-0.2 [facility] Comment on above: Result Comment: PERF ORMED BY: [place] [address] PATHOLOGIST COST ESTIMATING ENGINEER KRISTEL LU M.D. Performed By: #### R ADEEL, CBC #### [address] Basophils/100 WBC (Bld) 0.6 % Normal . T mela [facility] Comment on above: Performed By: #### R ENAL, CBC #### [address] Eosinophils (Bld) [#/Vol] 0.2 10*3/uL Normal 0.0-0.45 [facility] Comment on above: Performed By: #### R ENAL, CBC #### [address] Eosinophils/100 WBC (Bld) 1.5 % Normal . [facility] Comment on above: Performed By: #### R ENAL, CBC #### [address] Erythrocyte distribution width (RBC) [Ratio] 14.2 % Normal 12.0-14.8 [facility] Comment on above: Performed By: #### R ADEEL, CBC #### [address] Hematocrit (Bld) [Volume fraction] 34.4 % Low 38.8-50.0 [facility] Comment on above: Performed By: #### R ADEEL, CBC #### [address] Hemoglobin (Bld) [Mass/Vol] 11.7 g/dL Low 13.0-17.0 [facility] Comment on above: Performed By: #### R ADEEL, CBC #### [address] Lymphocytes (Bld) [#/Vol] 0.8 10*3/uL Low 1.00-4.8 [facility] Comment on above: Performed By: #### R ADEEL, CBC #### [address] Lymphocytes/100 WBC (Bld) 6.8 % Normal . [facility] Comment on above: Performed By: #### R ADEEL, CBC #### [address] MCH (RBC) [Entitic mass] 32.2 pg Normal 27.5-35.2 [facility] Comment on above: Performed By: #### R ADEEL, CBC #### [address] MCV (RBC) [Entitic vol] 94.5 fL Normal 83.5-101 T he [facility] Comment on above: Performed By: #### R ADEEL, CBC #### [address] Mean Corpuscular HGB Conc 34.1 g/dL Normal 32.5-35.6 [facility] Comment on above: Performed By: #### R ADEEL, CBC #### [address] Monocytes (Bld) [#/Vol] 0.9 10*3/uL High 0.0-0.8 [facility] Comment on above: Performed By: #### R ENKIMMIE, CBC #### [address] Monocytes/100 WBC (Bld) 7.7 % Normal . T he [facility] Comment on above: Performed By: #### R ENAL, CBC #### [address] Neutrophils (Bld) [#/Vol] 9.8 10*3/uL High 1.8-7.7 [facility] Comment on above: Performed By: #### R ADEEL, CBC #### [address] Neutrophils/100 WBC (Bld) 83.4 % Normal . [facility] Comment on above: Performed By: #### R ADEEL, CBC #### [address] NRBC% 0.0 /100{WBC} Normal 0-0.5 [facility] Comment on above: Performed By: #### R DAEEL, CBC #### [address] Platelet mean volume (Bld) [Entitic vol] 7.2 fL Normal 6.6-10.1 [facility] Comment on above: Performed By: #### R ENKIMMIE, CBC #### [address] Platelets (Bld) [#/Vol] 170 10*3/uL Normal 150-450 [facility] Comment on above: Performed By: #### R ENKIMMIE, CBC #### [address] RBC (Bld) [#/Vol] 3.64 10*6/uL Low 3.90-5.60 [facility] Comment on above: Performed By: #### R ENAL, CBC #### [place] [id number] [place] WBC (Bld) [#/Vol] 11.7 10*3/uL High 4.1-10.5 [facility] Comment on above: Performed By: #### R ENAL, CBC #### [address] ECG 12 lead ECGon 12-22-2024 ECG 12 lead ECG [facility] Main [place] [address] [place] [address] Electrocardiograph Report Signed Patient: Delano Ren MR#: [id number] 24 : 1940 Acct:[id number] Age/Sex: 84 / M ADM Date: 12/21/24 Loc: Room: 60 [place] [address] Type: ADM IN Attending Dr: Jaye Jorgensen [...] detected Abnormal ECG Confirmed by Krysten Bowers ([id number]) on 12/22/2024 9:01:16 PM Referred By: Electronically Signed By: Krysten Bowers Transcribed By: MUS Signed By Krysten Bowers MD 5 2100 Normal [facility] Activated partial thrombopla stin time (aPTT) in platelet poor plasma by coagulation aon 12-21-2024 aPTT Coag (PPP) [Time] Activated partial thromboplastin time (aPTT) in platelet poor plasma by coagulation a 22.3-36.2 [facility] Basophils Auto (Bld) [#/Vol] on 12-21-2024 Basophils (Bld) [#/Vol] Automated basoph il count 0.0-0.1 [facility] Basophils/100 WBC Auto (Bld) on 12-21-2024 Basophils/100 WBC (Bld) Automated basophil % 0. 2-2.0 [facility] Eosinophils/100 WBC Auto (Bl d)on 12-21-2024 Eosinophils/100 WBC (Bld) Automated eosi nophil % 0.9-7.0 [facility] Erythrocyte distribution wid th Auto (RBC) [Ratio]on 12-21-2024 Erythrocyte distribution width (RBC) [Ratio] Erythrocyte distribution width [Ratio] by Automated count 11.0-15.0 [facility] Estimated glomerular filtrat ion rate (GFR) non- Americanon 12-21-2024 GFR/1.73 sq M.predicted among non-blacks MDRD (S/P/Bld) [Vol rate/Area] Estimated glomerular filtration rate (GFR) non- Low >=60 mL/min/1.73 m 2 [facility] Globulin Calc (S) [Mass/Vol] on 12-21-2024 Globulin (S) [Mass/Vol] Serum globulin measurement by calculation (mass/volume) [facility] Hematocrit Auto (Bld) [Volum e fraction]on 12-21-2024 Hematocrit (Bld) [Volume fraction] Hematocrit [Volume Fraction] of Blood by Automated count Low 42.0-54.0 [facility] Hemoglobin [Mass/volume] in Bloodon 12-21-2024 Hemoglobin (Bld) [Mass/Vol] Hemoglobin [Mass/volume] in Blood Low 14.0-18.0 [facility] INR in Platelet poor plasma by Coagulation assayon 12-21-2024 INR Coag (PPP) [Relative time] INR in Platelet poor plasma by Coagulation assay [facility] Comment on above: DESIRED INR:2.0-3.0 CONDITIONS NOT LISTED BELOW2.5-3.5 FOR PROSTHETIC HEART VALVE REPLACEMENT2.5-3.5 RECURRENT THROMBOSIS Laboratory - Chemistry and C hemistry - challengeon 12-21-2024 Albumin [Mass/Vol] 3.7 g/dL 3.4-5.0 [facility] ALP [Catalytic activity/Vol] 110 U/L 46-116 [facility] ALT [Catalytic activity/Vol] 22 U/L 16-63 [facility] AST [Catalytic activity/Vol] 19 U/L 15-37 [facility] Bilirubin [Mass/Vol] 0.5 mg/dL 0.2-1.0 [facility] Calcium [Mass/Vol] 8.7 mg/dL 8.5-10.1 [facility] Chloride [Moles/Vol] 102 mmol/L 98-107 [facility] CO2 [Moles/Vol] 30.8 mmol/L 21.0-32.0 [facility] Creatinine [Mass/Vol] 3.27 mg/dL High 0.70-1.30 [facility] GFR/1.73 sq M.predicted MDRD (S/P/Bld) [Vol rate/Area] 22 mL/min/{1.73_m2} Low >=60 mL/min/1.73 m 2 [facility] Glucose [Mass/Vol] 101 mg/dL 74-106 [facility] Potassium [Moles/Vol] 3.7 mmol/L 3.5-5.1 [facility] Protein [Mass/Vol] 7.3 g/dL 6.4-8.2 [facility] Sodium [Moles/Vol] 145 mmol/L 136-145 [facility] Urea nitrogen [Mass/Vol] 68.0 mg/dL High 7.0-18.0 [facility] Urea nitrogen/Creatinine [Mass ratio] 20.8 mg/mg [facility] Laboratory - Hematology and Cell countson 12-21-2024 Immature granulocytes/100 WBC (Bld) 0.9 % High 0.0-0.5 [facility] Leukocytes [#/volume] correc bonnie for nucleated erythrocytes in Blood by Automated counon 12-21-2024 WBC corrected for nucl RBC Auto (Bld) [#/Vol] Leukocytes [#/volume] corrected for nucleated erythrocytes in Blood by Automated coun 4.0-11.0 [facility] Lymphocytes Auto (Bld) [#/Vo l]on 12-21-2024 Lymphocytes (Bld) [#/Vol] Lymphocytes [#/volume] in Blood by Automated count 1.2-3.8 [facility] Lymphocytes/100 WBC Auto (Bl d)on 12-21-2024 Lymphocytes/100 WBC (Bld) Lymphocytes/10 0 leukocytes in Blood by Automated count Low 20.5-60.0 [facility] MCH Auto (RBC) [Entitic mass ]on 12-21-2024 MCH (RBC) [Entitic mass] MCH [Entitic ma ss] by Automated count 25.9-34.0 [facility] MCHC Auto (RBC) [Mass/Vol]on 12-21-2024 MCHC (RBC) [Mass/Vol] MCHC [Mass/volume] by Automated count 29.9-35.2 [facility] MCV Auto (RBC) [Entitic vol] on 12-21-2024 MCV (RBC) [Entitic vol] MCV [Entitic vol ume] by Automated count High 80.0-94.0 [facility] Monocytes Auto (Bld) [#/Vol] on 12-21-2024 Monocytes (Bld) [#/Vol] Automated blood monocyte count 0.3-0.8 [facility] Monocytes/100 WBC Auto (Bld) on 12-21-2024 Monocytes/100 WBC (Bld) Automated monocyte % 1. 7-12.0 [facility] Neutrophils Auto (Bld) [#/Vo l]on 12-21-2024 Neutrophils (Bld) [#/Vol] Neutrophils [#/volume] in Blood by Automated count 1.4-6.5 [facility] Neutrophils/100 WBC Auto (Bl d)on 12-21-2024 Neutrophils/100 WBC (Bld) Automated neut rophil % 43.0-75.0 [facility] No Panel Informationon 12-21 Eosinophils # (Auto) 0.3 10 3/uL 0.0-0.7 [facility] Immature Granulocyte # (Auto) 0.07 10 3/uL High 0.00-0.03 [facility] Troponin I High Sensitivity 25.8 pg/mL 4.0-76.1 [facility] Comment on above: CUT-OFF POINTS HAVE [...] DIAGNOSTIC AND CLINICAL INFORMATION. 25.8 pg/mL 4.0-76.1 [facility] 3.7 g/dL 3.4-5.0 [facility] 0.3 10 3/uL 0.0-0.7 [facility] 110 U/L 46-116 [facility] 22 U/L 16-63 [facility] 19 U/L 15-37 [facility] 20.8 [facility] 0.07 10 3/uL High 0.00-0.03 [facility] 68.0 mg/dL High 7.0-18.0 [facility] 0.9 % High 0.0-0.5 [facility] 8.7 mg/dL 8.5-10.1 [facility] 102 mmol/L 98-107 [facility] 30.8 mmol/L 21.0-32.0 [facility] 3.27 mg/dL High 0.70-1.30 [facility] 22 Low >=60 mL/min/1.73 m 2 [facility] 101 mg/dL 74-106 [facility] 3.7 mmol/L 3.5-5.1 [facility] 145 mmol/L 136-145 [facility] 0.5 mg/dL 0.2-1.0 [facility] 7.3 g/dL 6.4-8.2 [facility] Platelet mean volume Auto (B ld) [Entitic vol]on 12-21-2024 Platelet mean volume (Bld) [Entitic vol] Platelet mean volume [Entitic volume] in Blood by Automated count Low 9.5-13.5 [facility] Platelets Auto (Bld) [#/Vol] on 12-21-2024 Platelets (Bld) [#/Vol] Platelets [#/vol ume] in Blood by Automated count 150-450 [facility] Prothrombin time (PT)on PT Coag (PPP) [Time] Prothrombin time (PT) 9.0-11.6 [facility] RBC Auto (Bld) [#/Vol]on RBC (Bld) [#/Vol] Erythrocytes [#/volume] in Blood by Automated count Low 4.70-6.10 [facility] Serum or plasma albumin/glob ulin mass ratioon 12-21-2024 Albumin/Globulin [Mass ratio] Serum or plasma albumin/globulin mass ratio [facility] Serum or plasma anion gap de terminationon 12-21-2024 Anion gap [Moles/Vol] Serum or plasma anion gap determination [facility] Laboratory - Chemistry and C hemistry - challengeon 12-19-2024 Free T4 [Mass/Vol] 0.82 ng/dL 0.76-1.46 [facility] TSH Qn 23.918 m[IU]/L High 0.358-3.740 [facility] No Panel Informationon 12-19 Total Triiodothyronine 65 ng/dL Abnormal 71-180 [facility] Comment on above: Performed at: [facility] [address] [id number] Director: Nathan Munoz PhD, Phone: [phone] 65 ng/dL Abnormal 71-180 [facility] 0.82 ng/dL 0.76-1.46 [facility] 23.918 u[iU]/mL High 0.358-3.740 [facility] Follow-Upon 11-13-2024 Follow-Up [id number] Delano Ren 1940 M Date Provider Department Center 11/13/2024 ENRRIQUE TAVAREZ DARWIN Shaikh Family History Problem Relation Age of Onset Diabetes Mother Heart disease Father Glaucoma Brother Diabetes Maternal Grandmother Clotting disorder Other Family Status - Relation Status Age at Mother Father Brother Maternal Grandmother Other Level of Service:39617 [place] OFFICE/OUTPATIENT ESTABLISHED LOW MDM 20 MIN Reason for Visit and Comments: Atrial Fibrillation [80] Atrial Flutter [101] Normal [facility] Laboratory - Chemistry and C hemistry - challengeon 11-07-2024 Free T4 [Mass/Vol] 0.89 ng/dL 0.76-1.46 [facility] TSH Qn 28.632 m[IU]/L High 0.358-3.740 [facility] No Panel Informationon 11-07 Total Triiodothyronine 54 ng/dL Abnormal 71-180 [facility] Comment on above: Performed at: - [facility] [address] [id number] Director: Nathan Munoz PhD, Phone: [phone] 54 ng/dL Abnormal 71-180 [facility] 28.632 u[iU]/mL High 0.358-3.740 [facility] 0.89 ng/dL 0.76-1.46 [facility] HPon 10-17-2024 [facility] Electrophysiology Consult Note Reason for visit: Afib and dilated CMP. 10/17/24 Pt here for DCCV. Device check reveals atrial flutter with V pacing, 09/10/24 Patient underwent HEAD TELLER-D upgrade procedure on 06/12/2023. Subsequent echocardiogram in [...] infrahisian disease. He was brought back to [facility] on 02/12/2020 due to what was [...] Chronic k (more content not included)... Normal [facility] NURSNOTEon 10-17-2024 NURSNOTE RN educated pt and on discharge instructions. RN encouraged pt to voice any questions or concerns. Pt verbalizes no questions or concerns at this time. Pt was wheeled off unit with all belongings. Normal [facility] Estimated glomerular filtrat ion rate (GFR) non- Americanon 10-11-2024 GFR/1.73 sq M.predicted among non-blacks MDRD (S/P/Bld) [Vol rate/Area] Estimated glomerular filtration rate (GFR) non- Low >=60 mL/min/1.73 m 2 [facility] Laboratory - Chemistry and C hemistry - challengeon 10-11-2024 Calcium [Mass/Vol] 8.6 mg/dL 8.5-10.1 [facility] Chloride [Moles/Vol] 103 mmol/L 98-107 [facility] CO2 [Moles/Vol] 32.0 mmol/L 21.0-32.0 [facility] Creatinine [Mass/Vol] 3.07 mg/dL High 0.70-1.30 [facility] GFR/1.73 sq M.predicted MDRD (S/P/Bld) [Vol rate/Area] 24 mL/min/{1.73_m2} Low >=60 mL/min/1.73 m 2 [facility] Glucose [Mass/Vol] 124 mg/dL High 74-106 [facility] Magnesium [Mass/Vol] 2.4 mg/dL 1.8-2.4 [facility] Potassium [Moles/Vol] 3.7 mmol/L 3.5-5.1 [facility] Sodium [Moles/Vol] 143 mmol/L 136-145 [facility] Urea nitrogen [Mass/Vol] 69.0 mg/dL High 7.0-18.0 [facility] Urea nitrogen/Creatinine [Mass ratio] 22.5 mg/mg [facility] Serum or plasma anion gap de terminationon 10-11-2024 Anion gap [Moles/Vol] Serum or plasma anion gap determination [facility] Orders Onlyon 10-10-2024 Orders Only [id number] Delano Ren 1940 M Date Provider Department Center 10/10/2024 [facility]INA OSMAN [facility] Family History Problem Relation Age of Onset Diabetes Mother Heart disease Father Glaucoma Brother Diabetes Maternal Grandmother Clotting disorder Other Family Status - Relation Status Age at Mother Father Brother Maternal Grandmother Other Normal [facility] 36on 09-20-2024 36 Regarding echo result from 09/19/2024: Per Dr. Degroot - EF has improved. Will repeat echo in 6 months. Order entered and faxed to [facility]. Patient and his informed. Normal [facility] Office Visiton 09-10-2024 Follow-up visit [id number] Delano Ren 1940 M Date Provider Department Center 09/10/2024 TRANG LOPEZ DARWIN Agustin [facility] Family History Problem Relation Age of Onset Diabetes Mother Heart disease Father Glaucoma Brother Diabetes Maternal Grandmother Clotting disorder Other Family Status - Relation Status Age at Mother Father Brother Maternal Grandmother Other Level of Service:[address] [place] OFFICE/OUTPATIENT ESTABLISHED LOW MDM 20 MIN Normal [facility] Glucose Poct Glucometerson 1 10-22-2023 Commemt1 Glu2: Cleaned Meter Normal [facility] Comment on above: Result Comment: PERF ORMED BY: [place] [address] PATHOLOGIST COST ESTIMATING ENGINEER TRU UMANZOR M.D. Performed By: #### R ADEEL, CBC #### [facility] [address] Glucose [Mass/Vol] 112 mg/dL Normal [facility] Comment on above: Result Comment: [facility] Glucose Reference Range is dependent on time and content of last meal. Glucose of more than 200 mg/dL in a nonstressed, ambulatory subject supports the diagnosis of Diabetes Mellitus. Performed By: #### R ADEEL, CBC #### [address] [place] 08-22-2024 L Specimen: [id number] Received: 08/22/24 Status: ДМИТРИЙ Vickey Num: [id number] Spec Type: Surgical Subm Dr: Ramesh Rascon MD Tissues: A Colon Biopsy (TRANSVERSEPOLYPS) B Colon Biopsy (DESCENDING POLYPS) C Colon Biopsy (SIGMOID POLYPS) Procedures: HE/6, Gross/Micro L4/3 Age/ Patient Sex Location Account Attending Physician Delano Ren 84/M [id number] Ramesh Rascon MD SPEC NUM: [id number] RECD: 08/22/24 STATUS: ДМИТРИЙ BARRY NUM: [id number] LLOY[place]: 08/22/24 DR: Ramesh Rascon MD ENTERED: 08/22/24 [facility] DR: RHIANNA TYPE: Surgical DEPT: S ENTERED BY: [id number] RECV BY: [id number] ORDERED: HE/6, Gross/Micro L4/3 ORDERED: HE/6, Gross/Micro [...] submitted in a single cassette. (1, ns, [id number]) JG B received in formalin labeled descending polyps are 5 staley-parr, focally erythematous, friable, 0.2 to 0.5 cm polypoid fragments. The specimen is entirely submitted in a single cassette. (1, ns, [id number]) JG C. Received in formalin labeled sigmoid polyps are 4 staley-parr, focally erythematous, Specimen: [id number] Received: 08/22/24 Status: ДМИТРИЙ Barry Num: [id number] Spec Type: Surgical Subm Dr: Ramesh Rascon MD Tissues: A Colon Biopsy (TRANSVERSEPOLYPS) B Colon Biopsy (DESCENDING POLYPS) C Colon Biopsy (SIGMOID POLYPS) Procedures: HE/6, Gross/Micro L4/3 Patient: Delano eRn [id number] (Continued) Specimen: [id number] Received: 08/22/24 (Continued) Gross Description (Continued) Signed (signature on file) Logan Taylor MD 08/23/24 0926 Specimen: [id number] Received: 08/22/24 Status: ДМИТРИЙ Barry Num: [id number] Spec Type: Surgical Subm Dr: Ramesh Rascon MD Tissues: A Colon Biopsy (TRANSVERSEPOLYPS) B Colon Biopsy (DESCENDING POLYPS) C Colon Biopsy (SIGMOID POLYPS) Procedures: /6, Gross/Micro L4/3 Patient: RenDelano [id number] (Continued) Specimen: [id number] Received: 08/22/24 (Continued) Gross Description (Continued) friable, 0.2 to 0.4 cm polypoid fragments. The specimen is entirely submitted in a single cassette. (1, ns, [id number] C) J CPT Codes 88 305 x 3 Specimen: [id number] Received: 08/22/24 Status: ДМИТРИЙ Barry Num: [id number] Spec Type: Surgical Subm Dr: Ramesh Rascon MD Tissues: A Colon Biopsy (TRANSVERSEPOLYPS) B Colon Biopsy (DESCENDING POLYPS) C Colon Biopsy (SIGMOID POLYPS) Procedures: HE/6, Gross/Micro L4/3 Patient: Delano Ren [id number] (Continued) Signed (signature on file) Logan Taylor MD 08/23/24925 Normal [facility] 36on 08-12-2024 36 Okay to hold Eliquis 2 days prior to colonoscopy. Thanks Normal [facility] Office Visiton 07-24-2024 Follow-up visit [id number] Delano Ren 1940 M Date Provider Department Center 07/24/2024 ENRRIQUE TAVAREZ Family History Problem Relation Age of Onset Diabetes Mother Heart disease Father Glaucoma Brother Diabetes Maternal Grandmother Clotting disorder Other Family Status - Relation Status Age at Mother Father Brother Maternal Grandmother Other Level of Service:[address]340 [place] OFFICE/OUTPATIENT ESTABLISHED MOD MDM 30 MIN Reason for Visit and Comments: Atrial Fibrillation [80] Coronary Artery Disease [187] Normal [facility] Alanine aminotransferase [En zymatic activity/volume] in Serum or PlasmaOrdered By: Chivo Keller on 02-22-2024 ALT [Catalytic activity/Vol] 15 U/L 7-52 [facility] Albumin [Mass/volume] in Ser um or PlasmaOrdered By: Chivo Keller on 02-22-2024 Albumin [Mass/Vol] 3.9 g/dL 2.9-4.4 [facility] Albumin [Mass/volume] in Ser um or Plasma [...] [#/Vol] 0.0 10*3/uL 0.0-0.2 [facility] Basophils (Bld) [#/Vol] Automated basoph il count 0.0-0.2 [facility] Basophils/100 WBC Auto (Bld) Ordered By: Chivo Keller on 02-22-2024 Basophils/100 WBC (Bld) 0.5 % . [facility] Basophils/100 WBC (Bld) Automated basophil % . [facility] Bilirubin.total [Mass/volume ] in Serum or PlasmaOrdered By: Chivo Keller on 02-22-2024 Bilirubin [Mass/Vol] 0.7 mg/dL 0.3-1.0 [facility] Calcium [Mass/volume] in Ser um or PlasmaOrdered By: Chivo Keller on 02-22-2024 Calcium [Mass/Vol] 9.4 mg/dL 8.6-10.3 [facility] Carbon dioxide, total [Moles /volume] in Serum or PlasmaOrdered By: Chivo Keller on 02-22-2024 CO2 [Moles/Vol] 33.2 mmol/L High 21.0-31.0 [facility] Chloride [Moles/volume] in S alayna or PlasmaOrdered By: Chivo Keller on 02-22-2024 Chloride [Moles/Vol] 100 mmol/L 98-107 [facility] Creatinine [Mass/volume] in Serum or PlasmaOrdered By: Chivo Keller on 02-22-2024 Creatinine [Mass/Vol] 2.38 mg/dL High 0.70-1.30 [facility] Eosinophils Auto (Bld) [#/Vo l]Ordered By: Chivo Keller on 02-22-2024 Eosinophils (Bld) [#/Vol] 0.3 10*3/uL 0.0-0.45 [facility] Eosinophils (Bld) [#/Vol] Automated eosi nophil count 0.0-0.45 [facility] Eosinophils/100 WBC Auto (Bl d)Ordered By: Chivo Keller on 02-22-2024 Eosinophils/100 WBC (Bld) 3.8 % . [facility] Eosinophils/100 WBC (Bld) Automated eosi nophil % . [facility] Erythrocyte distribution wid th Auto (RBC) [Ratio]Ordered By: Chivo Keller on 02-22-2024 Erythrocyte distribution width (RBC) [Ratio] 14.6 % 12.0-14.8 [facility] Erythrocyte distribution width (RBC) [Ratio] Erythrocyte distribution width [Ratio] by Automated count 12.0-14.8 [facility] Ferritin [Mass/volume] in Se rum or PlasmaOrdered By: Chivo Keller on 02-22-2024 Ferritin [Mass/Vol] 236.8 ng/mL 23.9-336.2 [facility] Folate [Mass/volume] in Seru m or PlasmaOrdered By: Chivo Keller on 02-22-2024 Folate [Mass/Vol] 36.0 ng/mL >5.9 [facility] Comment on above: Folate reference ran ge: >5.9 ng/mlThe WHO technical consultation on folate and vitamin [id number] has determined that folate concentrations lessthan 4 ng/ml are considered deficient. Globulin Calc (S) [Mass/Vol] Ordered By: Chivo Keller on 02-22-2024 Globulin (S) [Mass/Vol] 3.0 g/dL [facility] Glucose [Mass/volume] in Ser um or PlasmaOrdered By: Chivo Keller on 02-22-2024 Glucose [Mass/Vol] 129 mg/dL High 70-100 [facility] Comment on above: ADA recommended refe rence rangeRandom Glucose Reference Range is dependent on time and content of last meal. Glucose of more than 200 mg/dL in a nonstressed, ambulatory subject supports the diagnosis of Diabetes Mellitus. Hematocrit Auto (Bld) [Volum e fraction]Ordered By: Chivo Keller on 02-22-2024 Hematocrit (Bld) [Volume fraction] 38.1 % Low 38.8-50.0 [facility] Hematocrit (Bld) [Volume fraction] Hematocrit [Volume Fraction] of Blood by Automated count Low 38.8-50.0 [facility] Hemoglobin [Mass/volume] in BloodOrdered By: Chivo Keller on 02-22-2024 Hemoglobin (Bld) [Mass/Vol] 12.9 g/dL Low 13.0-17.0 [facility] Hemoglobin (Bld) [Mass/Vol] Hemoglobin [Mass/volume] in Blood Low 13.0-17.0 [facility] IgA [Mass/volume] [...] [facility] Comment on above: Performed at: [facility] [address] [id number] Director: Nathan Munoz PhD, Phone: [phone] Immunoglobulin light chains. kappa.free [Mass/volume] in SerumOrdered By: Chivo Keller on 02-22-2024 Immunoglobulin light chains.kappa.free (S) [Mass/Vol] 56.1 mg/L High 3.3-19.4 [facility] Immunoglobulin light chains. kappa.free/Immunoglobulin light chains.lambda.free [MassOrdered By: Chivo Keller on 02-22-2024 Immunoglobulin light chains.kappa.free/Immunog lobulin light chains.lambda.free (S) [Mass ratio] 1.51 0.26-1.65 [facility] Comment on above: Performed at: [facility] [address] [id number] Director: Nathan Munoz PhD, Phone: [phone] Immunoglobulin light chains. lambda.free [Mass/volume] in Serum or PlasmaOrdered By: Chivo Keller on 02-22-2024 Immunoglobulin light chains.lambda.free [Mass/Vol] 37.2 mg/L High 5.7-26.3 [facility] Iron [Mass/volume] in Serum or PlasmaOrdered By: Chivo Keller on 02-22-2024 Iron [Mass/Vol] 85 ug/dL 50-212 [facility] Iron binding capacity [Mass/ [...] [#/Vol] 7.5 10*3/uL 4.1-10.5 [facility] WBC corrected for nucl RBC Auto (Bld) [#/Vol] Leukocytes [#/volume] corrected for nucleated erythrocytes in Blood by Automated coun 4.1-10.5 [facility] Lymphocytes Auto (Bld) [#/Vo l]Ordered By: Chivo Keller on 02-22-2024 Lymphocytes (Bld) [#/Vol] 1.4 10*3/uL 1.00-4.8 [facility] Lymphocytes (Bld) [#/Vol] Lymphocytes [#/volume] in Blood by Automated count 1.00-4.8 [facility] Lymphocytes/100 WBC Auto (Bl d)Ordered By: Chivo Keller on 02-22-2024 Lymphocytes/100 WBC (Bld) 19.1 % . [facility] Lymphocytes/100 WBC (Bld) Lymphocytes/10 0 leukocytes in Blood by Automated count . [facility] MCH Auto (RBC) [Entitic mass ]Ordered By: Chivo Keller on 02-22-2024 MCH (RBC) [Entitic mass] 31.6 pg 27.5-35.2 [facility] MCH (RBC) [Entitic mass] MCH [Entitic ma ss] by Automated count 27.5-35.2 [facility] MCHC Auto (RBC) [Mass/Vol]Or dered By: Chivo Keller on 02-22-2024 MCHC (RBC) [Mass/Vol] 33.9 g/dL 32.5-35.6 [facility] MCHC (RBC) [Mass/Vol] MCHC [Mass/volume] by Automated count 32.5-35.6 [facility] MCV Auto (RBC) [Entitic vol] Ordered By: Chivo Keller on 02-22-2024 MCV (RBC) [Entitic vol] 93.2 fL 83.5-101 [facility] MCV (RBC) [Entitic vol] MCV [Entitic vol ume] by Automated count 83.5-101 [facility] Monocytes Auto (Bld) [#/Vol] Ordered By: Chivo Keller on 02-22-2024 Monocytes (Bld) [#/Vol] 0.8 10*3/uL 0.0-0.8 [facility] Monocytes (Bld) [#/Vol] Automated blood monocyte count 0.0-0.8 [facility] Monocytes/100 WBC Auto (Bld) Ordered By: Chivo Keller on 02-22-2024 Monocytes/100 WBC (Bld) 10.0 % . [facility] Monocytes/100 WBC (Bld) Automated monocyte % . [facility] Neutrophils Auto (Bld) [#/Vo l]Ordered By: Chivo Keller on 02-22-2024 Neutrophils (Bld) [#/Vol] 5.0 10*3/uL 1.8-7.7 [facility] Neutrophils (Bld) [#/Vol] Neutrophils [#/volume] in Blood by Automated count 1.8-7.7 [facility] Neutrophils/100 WBC Auto (Bl d)Ordered By: Chivo Keller on 02-22-2024 Neutrophils/100 WBC (Bld) 66.6 % . [facility] Neutrophils/100 WBC (Bld) Automated neut rophil % . [facility] No Panel InformationOrdered By: Chivo Keller on 02-22-2024 Protein Electrophoresis M-Tobi Not observed g/dL Not Observed [facility] Protein Electrophoresis Note See comment . [facility] Comment on above: Protein electrophore sis scan will follow via computer,mail, or mud jack nozzleman delivery.Performed at: [place] [id number] Director: Nathan Munoz PhD, Phone: [phone] Serum Immunofixation See comment . [facility] Comment on above: No monoclonality det ected. Not observed g/dL Not Observed [facility] Estimated GFR (CKD-EPI) 26.711 mL/Min [facility] Creatinine Clearance (Chem 29.06 [facility] Nucleated erythrocytes [Pres ence] in Blood by Automated countOrdered By: Chivo Keller on 02-22-2024 Nucleated RBC Auto Ql (Bld) 0.0 /100{WBC} 0-0.5 [facility] Nucleated RBC Auto Ql (Bld) Nucleated erythrocytes [Presence] in Blood by Automated count 0-0.5 [facility] Platelet mean volume Auto (B ld) [Entitic vol]Ordered By: Chivo Keller on 02-22-2024 Platelet mean volume (Bld) [Entitic vol] 7.6 fL 6.6-10.1 [facility] Platelet mean volume (Bld) [Entitic vol] Platelet mean volume [Entitic volume] in Blood by Automated count 6.6-10.1 [facility] Platelets Auto (Bld) [#/Vol] Ordered By: Chivo Keller on 02-22-2024 Platelets (Bld) [#/Vol] 196 10*3/uL 150-450 [facility] Platelets (Bld) [#/Vol] Platelets [#/vol ume] in Blood by Automated count 150-450 [facility] Potassium [Moles/volume] in Serum or PlasmaOrdered By: Chivo Keller on 02-22-2024 Potassium [Moles/Vol] 3.8 mmol/L 3.5-5.1 [facility] Protein [Mass/volume] in Ser um or PlasmaOrdered By: Chivo Keller on 02-22-2024 Protein [Mass/Vol] 6.8 g/dL 6.0-8.5 [facility] Protein [Mass/Vol] 7.4 g/dL 6.4-8.9 [facility] RBC Auto (Bld) [#/Vol]Ordere d By: Chivo Keller on 02-22-2024 RBC (Bld) [#/Vol] 4.09 10*6/uL 3.90-5.60 [facility] RBC (Bld) [#/Vol] Erythrocytes [#/volume] in Blood by Automated count 3.90-5.60 [facility] Serum free kappa light chain measurementOrdered By: Chivo Keller on 02-22-2024 Immunoglobulin light chains.kappa.free (S) [Mass/Vol] Immunoglobulin light chains.kappa.free [Mass/volume] in Serum High 3.3-19.4 [facility] Serum globulin measurement ( mass/volume)Ordered By: Chivo Keller on 02-22-2024 Globulin (S) [Mass/Vol] 2.9 g/dL 2.2-3.9 [facility] Globulin (S) [Mass/Vol] Serum globulin measurement (mass/volume) 2.2-3.9 [facility] Serum immunofixation electro phoresisOrdered By: Chivo Keller on 02-22-2024 Serum immunofixation electrophoresis See comment . [facility] Serum immunoglobulin free ka ppa light chains/immunoglobulin free lambda light chainsOrdered By: Chivo Keller on 02-22-2024 Immunoglobulin light chains.kappa.free/Immunog lobulin light chains.lambda.free (S) [Mass ratio] Immunoglobulin light chains.kappa.free/Im munoglobulin light chains.lambda.free [Mass 0.26-1.65 [facility] Serum or plasma IgA measurem ent (mass/volume)Ordered By: Chivo Keller on 02-22-2024 IgA [Mass/Vol] IgA [Mass/volume] in Serum or Plasma 61-437 [facility] Serum or plasma IgG measurem ent (mass/volume)Ordered By: Chivo Keller on 02-22-2024 IgG [Mass/Vol] IgG [Mass/volume] in Serum or Plasma 603-1613 [facility] Serum or plasma IgM measurem ent (mass/volume)Ordered By: Chivo Keller on 02-22-2024 IgM [Mass/Vol] IgM [Mass/volume] in Serum or Plasma 15-143 [facility] Serum or plasma albumin darshan urement (mass/volume)Ordered By: Chivo Keller on 02-22-2024 Albumin [Mass/Vol] Albumin [Mass/volume] in Serum or Plasma 2.9-4.4 [facility] Serum or plasma albumin/glob ulin mass ratioOrdered By: Chivo Keller on 02-22-2024 Albumin/Globulin [Mass ratio] 1.3 {ratio} 0.7-1.7 [facility] Albumin/Globulin [Mass ratio] Serum or plasma albumin/globulin mass ratio 0.7-1.7 [facility] Albumin/Globulin [Mass ratio] 1.5 {ratio} [facility] Serum or plasma alpha 1 glob ulin measurement by electrophoresis (mass/volume)Ordered By: Chivo Keller on 02-22-2024 Alpha 1 globulin Elph [Mass/Vol] 0.2 g/dL 0.0-0.4 [facility] Alpha 1 globulin Elph [Mass/Vol] Serum or plasma alpha 1 globulin measurement by electrophoresis (mass/volume) 0.0-0.4 [facility] Serum or plasma alpha 2 glob ulin measurement by electrophoresis (mass/volume)Ordered By: Chivo Keller on 02-22-2024 Alpha 2 globulin Elph [Mass/Vol] 0.8 g/dL 0.4-1.0 [facility] Alpha 2 globulin Elph [Mass/Vol] Serum or plasma alpha 2 globulin measurement by electrophoresis (mass/volume) 0.4-1.0 [facility] Serum or plasma anion gap de terminationOrdered By: Chivo Keller on 02-22-2024 Anion gap [Moles/Vol] 10.6 mmol/L 6.0-15.0 [facility] Serum or plasma beta globuli n measurement by electrophoresis (mass/volume)Ordered By: Chivo Keller on 02-22-2024 Beta globulin Elph [Mass/Vol] 0.9 g/dL 0.7-1.3 [facility] Beta globulin Elph [Mass/Vol] Serum or plasma beta globulin measurement by electrophoresis (mass/volume) 0.7-1.3 [facility] Serum or plasma gamma globul in measurement by electrophoresis (mass/volume)Ordered By: Chivo Keller on 02-22-2024 Gamma globulin Elph [Mass/Vol] 1.0 g/dL 0.4-1.8 [facility] Gamma globulin Elph [Mass/Vol] Serum or plasma gamma globulin measurement by electrophoresis (mass/volume) 0.4-1.8 [facility] Serum or plasma immunoglobul in free lambda light chains measurement (mass/volume)Ordered By: Chivo Keller on 02-22-2024 Immunoglobulin light chains.lambda.free [Mass/Vol] Immunoglobulin light chains.lambda.free [Mass/volume] in Serum or Plasma High 5.7-26.3 [facility] Serum total protein measurem entOrdered By: Chivo Keller on 02-22-2024 Protein [Mass/Vol] Protein [Mass/volume] in Serum or Plasma 6.0-8.5 [facility] Sodium [Moles/volume] in Ser um or PlasmaOrdered By: Chivo Keller on 02-22-2024 Sodium [Moles/Vol] 140 mmol/L 136-145 [facility] Transferrin [Mass/volume] in Serum or PlasmaOrdered By: Chivo Keller on 02-22-2024 Transferrin [Mass/Vol] 201 mg/dL Low 203-362 [facility] Urea nitrogen [Mass/volume] in Serum or PlasmaOrdered By: Chivo Keller on 02-22-2024 Urea nitrogen [Mass/Vol] 59 mg/dL High 7-25 [facility] Vitamin B12 ser/plasOrdered By: Chivo Keller on 02-22-2024 Cobalamin (Vitamin B12) [Mass/Vol] 649 pg/mL 180-914 [facility] WBC Auto (Bld) [#/Vol]Ordere d By: Chivo Keller on 02-22-2024 WBC (Bld) [#/Vol] 7.5 10*3/uL 4.1-10.5 [facility] WBC (Bld) [#/Vol] Leukocytes [#/volume] in Blood by Automated count 4.1-10.5 [facility] Automated urine specific gra vity by [...] (S/P/Bld) [Vol rate/Area] 23 mL/min/{1.73_m2} Low >=60 [facility] Glucose [Mass/volume] in Uri ne by [...] [Mass/Vol]on 02-01-2024 Ketones (U) [Mass/Vol] Negative NEGATIVE [facility] - Chemistry and C hemistry - challengeon 02-01-2024 Calcium [Mass/Vol] 9.1 mg/dL 8.5-10.1 [facility] Chloride [Moles/Vol] 101 mmol/L 98-107 [facility] CO2 [Moles/Vol] 31.5 mmol/L 21.0-32.0 [facility] Creatinine [Mass/Vol] 2.66 mg/dL High 0.70-1.30 [facility] Free T4 [Mass/Vol] 1.03 ng/dL 0.76-1.46 [facility] GFR/1.73 sq M.predicted MDRD (S/P/Bld) [Vol rate/Area] 28 mL/min/{1.73_m2} Low >=60 [facility] Glucose [Mass/Vol] 128 mg/dL High 74-106 [facility] Magnesium [Mass/Vol] 2.4 mg/dL 1.8-2.4 [facility] Potassium [Moles/Vol] 3.8 mmol/L 3.5-5.1 [facility] Sodium [Moles/Vol] 141 mmol/L 136-145 [facility] TSH Qn 8.924 m[IU]/L High 0.358-3.740 [facility] Urea nitrogen [Mass/Vol] 55.0 mg/dL High 7.0-18.0 [facility] Urea nitrogen/Creatinine [Mass ratio] 20.7 mg/mg [facility] Laboratory - Urinalysison Protein (U) [Mass/Vol] 25.1 mg/dL High <=11.9 [facility] Leukocytes [#/volume] correc bonnie for nucleated erythrocytes in Blood by Automated counon 02-01-2024 WBC corrected for nucl RBC Auto (Bld) [#/Vol] 8.0 10 3/uL 4.0-11.0 [facility] MCH Auto (RBC) [Entitic mass ]on 02-01-2024 MCH (RBC) [Entitic mass] 30.9 pg 25.9-34.0 [facility] MCHC Auto (RBC) [Mass/Vol]on 02-01-2024 MCHC (RBC) [Mass/Vol] 32.2 g/dL 29.9-35.2 [facility] MCV Auto (RBC) [Entitic vol] on 02-01-2024 MCV (RBC) [Entitic vol] 96.1 fL High 80.0-94.0 [facility] No Panel Informationon 01-31 25-Hydroxy Vitamin D Total 94.2 ng/mL [facility] Comment on above: <20 ng/mL Vit D defi cient20-<30 ng/mL Vit D [id number] ng/mL Vit D sufficient>100 ng/mL Potential Toxicity Parathyroid Hormone (Intact) 52 pg/mL 15-65 [facility] Comment on above: Performed at: [address] [place], [place] [id number] Director: Nathan Munoz PhD, Phone: [phone] Phosphorus Level 4.1 mg/dL 2.6-4.7 [facility] Prostate Specific Antigen Screen 0.91 ng/mL <=4.00 [facility] Total Triiodothyronine 73 ng/dL 71-180 [facility] Comment on above: Performed at: [address] [place], [place] [id number] Director: Nathan Munoz PhD, Phone: [phone] Urine Random Creatinine 77.24 mg/dL 20.0 0-300.0 0 [facility] Platelet mean volume Auto (B ld) [Entitic vol]on 02-01-2024 Platelet mean volume (Bld) [Entitic vol] 9.5 fL 9.5-13.5 [facility] Platelets Auto (Bld) [#/Vol] on 02-01-2024 Platelets (Bld) [#/Vol] 199 10 3/uL 150-450 [facility] Protein Auto test strip (U) [Mass/Vol]on 02-01-2024 Protein (U) [Mass/Vol] TRACE mg/dL NEG/TRACE [facility] RBC Auto (Bld) [#/Vol]on RBC (Bld) [#/Vol] 3.85 10 6/uL Low 4.70-6.10 [facility] Serum or plasma anion gap [...] [facility] Comment on above: <100 mg/dl [id number] 0-129 mg/dl NEAR OR ABOVE [id number] mg/dl BORDERLINE [id number] mg/dl HIGH>190 mg/dl VERY HIGH Cholesterol in VLDL Calc [Ma ss/Vol]on 12-19-2023 Cholesterol in VLDL [Mass/Vol] 23.2 mg/dL [facility] Glucose mean value [Mass/vol ume] in Blood Estimated from glycated hemoglobinon 12-19-2023 Average glucose Estimated from glycated hemoglobin (Bld) [Mass/Vol] 137 mg/dL [facility] - Chemistry and C hemistry - challengeon 12-19-2023 Cholesterol [Mass/Vol] 148 mg/dL <=200 [facility] Cholesterol in HDL [Mass/Vol] 43 mg/dL 40-60 [facility] Comment on above: > or =60 mg/dl - LOW CARDIOVASCULAR RISK<40 mg/dl - HIGH CARDIOVASCULAR RISK Free T4 [Mass/Vol] 1.04 ng/dL 0.76-1.46 [facility] Triglyceride [Mass/Vol] 116 mg/dL <=150 [facility] TSH Qn 11.812 m[IU]/L 0.358-3.740 [facility] - Hematology and Cell countson 12-19-2023 HbA1c (Bld) [Mass fraction] 6.4 % 4.5-6.2 [facility] Comment on above: ADA RECOMMENDED LIMI T 4.0 - 6.0ADA THERAPEUTIC TARGET < 7.0ACTION SUGGESTED> 7.0 Serum or plasma total choles terol/high density lipoprotein (HDL) cholesterol mass ernesto 12-19-2023 Cholesterol.total/Cholest vito in HDL [Mass ratio] 3.4 {ratio} [facility] Comment on above: 3.3 - [...] Basophils/100 WBC (Bld) 0.5 % . [facility] Bilirubin.total [Mass/volume ] in Serum or PlasmaOrdered By: Leigha Nelson 08-30-2023 Bilirubin [Mass/Vol] 0.8 mg/dL 0.3-1.0 [facility] Calcium [Mass/volume] in Ser um or PlasmaOrdered By: Leigha Nelson 08-30-2023 Calcium [Mass/Vol] 9.7 mg/dL 8.6-10.3 [facility] Carbon dioxide, total [Moles /volume] in Serum or PlasmaOrdered By: Leigha Nelson on 08-30-2023 CO2 [Moles/Vol] 35.5 mmol/L 21.0-31.0 [facility] Chloride [Moles/volume] in S alayna or PlasmaOrdered By: Leigha Nelson on 08-30-2023 Chloride [Moles/Vol] 102 mmol/L 98-107 [facility] Creatinine [Mass/volume] in Serum or PlasmaOrdered By: Leigha Nelson 08-30-2023 Creatinine [Mass/Vol] 2.29 mg/dL 0.70-1.30 [facility] Eosinophils Auto (Bld) [#/Vo l]Ordered By: Leigha Nelson on 08-30-2023 Eosinophils (Bld) [#/Vol] 0.3 10*3/uL 0.0-0.45 [facility] Eosinophils/100 WBC Auto (Bl d)Ordered By: Leigha Nelson on 08-30-2023 Eosinophils/100 WBC (Bld) 3.8 % . [facility] Erythrocyte distribution wid th Auto (RBC) [Ratio]Ordered By: Leigha Nelson on 08-30-2023 Erythrocyte distribution width (RBC) [Ratio] 14.8 % 12.0-14.8 [facility] Ferritin [Mass/volume] in Se rum or PlasmaOrdered By: Leigha Nelson on 08-30-2023 Ferritin [Mass/Vol] 239.3 ng/mL 23.9-336.2 [facility] Globulin Calc (S) [Mass/Vol] Ordered By: Leigha Nelson on 08-30-2023 Globulin (S) [Mass/Vol] 2.5 g/dL [facility] Glucose [Mass/volume] in Ser um or PlasmaOrdered By: Leigha Nelson on 08-30-2023 Glucose [Mass/Vol] 111 mg/dL 70-100 [facility] Comment on above: ADA recommended [...] Hemoglobin [Mass/volume] in BloodOrdered By: Leigha Nelson 08-30-2023 Hemoglobin (Bld) [Mass/Vol] 12.3 g/dL 13.0-17.0 [facility] Iron [Mass/volume] in Serum or PlasmaOrdered By: Leigha Nelson 08-30-2023 Iron [Mass/Vol] 84 ug/dL 50-212 [facility] Iron binding capacity [Mass/ [...] 08-30-2023 MCHC (RBC) [Mass/Vol] 33.3 g/dL 32.5-35.6 [facility] MCV Auto (RBC) [Entitic vol] Ordered By: Leigha Nelson on 08-30-2023 MCV (RBC) [Entitic vol] 92.8 fL 83.5-101 [facility] Monocytes Auto (Bld) [#/Vol] Ordered By: Leigha Nelson on 08-30-2023 Monocytes (Bld) [#/Vol] 0.5 10*3/uL 0.0-0.8 [facility] Monocytes/100 WBC Auto (Bld) Ordered By: Leigha Nelson on 08-30-2023 Monocytes/100 WBC (Bld) 7.9 % . [facility] Neutrophils Auto (Bld) [#/Vo l]Ordered By: [...] on 08-30-2023 Potassium [Moles/Vol] 4.5 mmol/L 3.5-5.1 [facility] Protein [Mass/volume] in Ser um or PlasmaOrdered By: Leigha Nelson on 08-30-2023 Protein [Mass/Vol] 6.9 g/dL 6.4-8.9 [facility] RBC Auto (Bld) [#/Vol]Ordere d By: Leigha Nelson on 08-30-2023 RBC (Bld) [#/Vol] 3.96 10*6/uL 3.90-5.60 [facility] Serum or plasma albumin/glob ulin mass ratioOrdered By: Leigha Nelson on 08-30-2023 Albumin/Globulin [Mass ratio] 1.8 {ratio} [facility] Serum or plasma anion gap de terminationOrdered By: Leigha Bangurajimena on 08-30-2023 Anion gap [Moles/Vol] 10.0 mmol/L 6.0-15.0 [facility] Serum or plasma carcinoembry onic antigen measurement (mass/volume)Ordered By: Leigha Talamantesrenée on 08-30-2023 Carcinoembryonic Ag [Mass/Vol] 2.1 ng/mL 0.0-3.0 [facility] Sodium [Moles/volume] in Ser um or PlasmaOrdered By: Leigha Talamantesrenée on 08-30-2023 Sodium [Moles/Vol] 143 mmol/L 136-145 [facility] Transferrin [Mass/volume] in Serum or PlasmaOrdered By: Leigha Talamantesrenée on 08-30-2023 Transferrin [Mass/Vol] 207 mg/dL 203-362 [facility] Urea nitrogen [Mass/volume] in Serum or PlasmaOrdered By: Leigha Talamantesrenée on 08-30-2023 Urea nitrogen [Mass/Vol] 51 mg/dL 7-25 [facility] WBC Auto (Bld) [#/Vol]Ordere d By: Leigha Bangurajimena on 08-30-2023 WBC (Bld) [#/Vol] 7.0 10*3/uL 4.1-10.5 [facility] ECHOCARDIO M/2D COMPLETEon 0 02-28-2023 ECHOCARDIO M/2D COMPLETE Patient: DELANO REN Exam Date: 02/28/2023 : 1940 Gender:M Ordering : MRS. MADDI [employer]ONG [employer] Admission #: [id number] Family : DR YAS LINDA D.O. Order #: [id number] CLICK HERE TO VIEW EXAM ECHOCARDIOGRAM REPORT [...] Ortiz M.D. on 02/28/2023 at 20:26 Normal [facility] T3, TOTAL (TRIIODOTHYRONINE) on 02-16-2023 T3, TOTAL 83 ng/dL Normal 71-180 [facility] Comment on above: Performed By: #### F T4, PSASC #### [facility] [address] [place] [address] Dr. Benito Schwartz FREE T4on 02-15-2023 Free T4 [Mass/Vol] 1.03 ng/dL Normal 0.76-1.46 [facility] Comment on above: Performed By: #### F T4 #### [facility] [address] [place] [address] Dr. Benito Schwartz LIPID PROFILEon 02-15-2023 CHOL-HDL RATIO NORM SEE BELOW Normal [facility] Comment on above: Result Comment: 3.3 - 4.4 LOW RISK 4.4 - 7.1 AVERAGE RISK 7.1 - 11.0 MODERATE RISK >11.0 HIGH RISK Performed By: #### T SH, FT3, BMP #### [facility] [address] [place] [address] Dr. Benito Schwartz Cholesterol [Mass/Vol] 164 mg/dL Normal <=200 [facility] Comment on above: Performed By: #### T SH, FT3, BMP #### [facility] [address] [place] [address] [address] Benito Schwartz Cholesterol in HDL [Mass/Vol] 41 mg/dL Normal 40-60 [facility] Comment on above: Performed By: #### T SH, FT3, BMP #### [facility] [address] [place] [address] [address] Benito Schwartz Cholesterol in LDL [Mass/Vol] 104.2 mg/dL Normal [facility] Comment on above: Performed By: #### T SH, FT3, BMP #### [facility] [address] [place] [address] [address] Benito Schwartz Cholesterol.total/Cholest vito in HDL [Mass ratio] 4.0 {ratio} Normal [facility] Comment on above: Performed By: #### T SH, FT3, BMP #### [facility] [address] [place] [address] [address] Benito Schwartz HDL NORMAL > or = 60 mg/dl - LOW CARDIOVASCULAR RISK <40 mg/dl - HIGH CARDIOVASCULAR RISK Normal [facility] Comment on above: Performed By: #### T SH, FT3, BMP #### [facility] [address] [place] [address] [address] Benito Schwartz LDL CALC NORMAL SEE BELOW Normal [facility] Comment on above: Result Comment: <100 mg/dl OPTIMAL 100 - 129 mg/dl NEAR OR ABOVE OPTIMAL 130 - 159 mg/dl BORDERLINE HIGH 160 - 189 mg/dl HIGH >190 mg/dl VERY HIGH Performed By: #### T SH, FT3, BMP #### [facility] [address] [place] [address] [address] Benito Schwartz Triglyceride [Mass/Vol] 94 mg/dL Normal <=150 [facility] Comment on above: Performed By: #### T SH, FT3, BMP #### [facility] [address] [place] [address] [address] Benito Schwartz VLDL CALC 18.8 mg/dL Normal [facility] Comment on above: Performed By: #### T SH, FT3, BMP #### [facility] [address] [place] [address] Dr. Benito Schwartz TSHon 02-15-2023 TSH 22.732 uIU/mL Critically high 0.358-3.740 [facility] Comment on above: Performed By: #### F T4, PSASC #### [facility] [address] [place] [address] Dr. Benito Schwartz PTH INTACTon 01-03-2023 PTH, Intact 46 pg/mL Normal 15-65 [facility] Comment on above: Performed By: #### U RTPCR #### [facility] [address] [place] [address] Dr. Benito Schwartz T3, TOTAL (TRIIODOTHYRONINE) on 01-03-2023 T3, TOTAL 77 ng/dL Normal 71-180 [facility] Comment on above: Performed By: #### T SH, FT3, BMP #### [facility] [address] [place] [address] Dr. Benito Schwartz CBC AUTO DIFFon 01-02-2023 BASO # 0.0 103/ul Normal 0.0-0.1 [facility] Comment on above: Performed By: #### C BC #### [facility] [address] [place] [address] Dr. Benito Schwartz Basophils/100 WBC (Bld) 0.4 % Normal 0.2-2.0 [facility] Comment on above: Performed By: #### C BC #### [facility] [address] [place] [address] Dr. Benito Schwartz EO # 0.4 103/ul Normal 0.0-0.7 [facility] Comment on above: Performed By: #### C BC #### [facility] [address] [place] [address] Dr. Benito Schwartz Eosinophils/100 WBC (Bld) 5.1 % Normal 0.9-7.0 [facility] Comment on above: Performed By: #### C BC #### [facility] [address] [place] [address] Dr. Benito Schwartz Erythrocyte distribution width (RBC) [Ratio] 13.2 % Normal 11.0-15.0 [facility] Comment on above: Performed By: #### C BC #### [facility] [address] [place] [address] Dr. Benito Schwartz Hematocrit (Bld) [Volume fraction] 37.4 % Critically low 42.0-54.0 [facility] Comment on above: Performed By: #### C BC #### [facility] [address] [place] [address] Dr. Benito Schwartz Hemoglobin (Bld) [Mass/Vol] 12.4 g/dL Critically low 14.0-18.0 [facility] Comment on above: Performed By: #### C BC #### [facility] [address] [place] [address] Dr. Benito Schwartz IG # 0.03 10e3/ul Normal 0.00-0.03 [facility] Comment on above: Performed By: #### C BC #### [facility] [address] [place] [address] Dr. Benito Schwartz IG % 0.4 % Normal 0.0-0.5 [facility] Comment on above: Performed By: #### C BC #### [facility] [address] [place] [address] Dr. Benito Schwartz LYMPH # 1.6 103/ul Normal 1.2-3.8 [facility] Comment on above: Performed By: #### C BC #### [facility] [address] [place] [address] Dr. Benito Schwartz Lymphocytes/100 WBC (Bld) 20.3 % Critically low 20.5-6 0.0 [facility] Comment on above: Performed By: #### C BC #### [facility] [address] [place] [address] Dr. Benito Schwartz MANUAL DIFF REQ NO Normal [facility] Comment on above: Performed By: #### C BC #### [facility] [address] [place] [address] Dr. Benito Schwartz MCH (RBC) [Entitic mass] 31.7 pg Normal 25.9-34.0 [facility] Comment on above: Performed By: #### C BC #### [facility] [address] [place] [address] [address] Benito Schwartz MCHC (RBC) [Mass/Vol] 33.2 g/dL Normal 29.9-35.2 [facility] Comment on above: Performed By: #### C BC #### [facility] [address] [place] [address] [address] Benito Schwartz MCV (RBC) [Entitic vol] 95.7 fL Critically high 80.0-94 .0 [facility] Comment on above: Performed By: #### C BC #### [facility] [address] [place] [address] Dr. Benito Schwartz MONO # 0.7 103/ul Normal 0.3-0.8 [facility] Comment on above: Performed By: #### C BC #### [facility] [address] [place] [address] Dr. Benito Schwartz Monocytes/100 WBC (Bld) 8.6 % Normal 1.7-12.0 [facility] Comment on above: Performed By: #### C BC #### [facility] [address] [place] [address] Dr. Benito Schwartz NEUT # 5.3 103/ul Normal 1.4-6.5 [facility] Comment on above: Performed By: #### C BC #### [facility] [address] [place] [address] Dr. Benito Schwartz Neutrophils/100 WBC (Bld) 65.2 % Normal 43.0-75.0 [facility] Comment on above: Performed By: #### C BC #### [facility] [address] [place] [address] Dr. Benito Schwartz Platelet mean volume (Bld) [Entitic vol] 9.0 fL Critically low 9.5-13.5 [facility] Comment on above: Performed By: #### C BC #### [facility] [address] [place] [address] Dr. Benito Schwartz PLT 209 103/ul Normal 150-450 [facility] Comment on above: Performed By: #### C BC #### [facility] Laboratory [address] [address] [address] Benito Schwartz RBC 3.91 106/ul Critically low 4.70-6.10 [facility] Comment on above: Performed By: #### C BC #### [facility] [address] [place] [address] Dr. Benito Schwartz WBC 8.1 103/ul Normal 4.0-11.0 [facility] Comment on above: Performed By: #### C BC #### [facility] [address] [place] [address] Dr. Benito Schwartz FREE T4on 01-02-2023 Free T4 [Mass/Vol] 0.87 ng/dL Normal 0.76-1.46 [facility] Comment on above: Performed By: #### F T4, PSASC #### [facility] [address] [place] [address] Dr. Benito Schwartz GLYCOHEMOGLOBIN A1Con 2022 ADA RECOMMENDATION SEE BELOW Normal [facility] Comment on above: Result Comment: ADA RECOMMENDED LIMIT 4.0 - 6.0 ADA THERAPEUTIC TARGET < 7.0 ACTION SUGGESTED > 7.0 Performed By: #### C BC #### [facility] [address] [place] [address] Dr. Benito Schwartz Glucose [Mass/Vol] 126 mg/dL Normal [facility] Comment on above: Performed By: #### C BC #### [facility] [address] [place] [address] Dr. Benito Schwartz HbA1c (Bld) [Mass fraction] 6.0 % Normal 4.5-6.2 [facility] Comment on above: Performed By: #### C BC #### [facility] [address] [place] [address] Dr. Benito Schwartz MAGNESIUMon 01-02-2023 Magnesium [Mass/Vol] 2.3 mg/dL Normal 1.8-2.4 [facility] Comment on above: Performed By: #### U RTPCR #### [facility] [address] [address] [address] Benito Schwartz PHOSPHORUSon 01-02-2023 Phosphate [Mass/Vol] 4.1 mg/dL Normal 2.6-4.7 [facility] Comment on above: Performed By: #### U RTPCR #### [facility] [address] [address] [address] Benito Schwartz PROF CHEM 8 (BAS METB)on Anion gap [Moles/Vol] 11.1 mmol/L Normal [facility] Comment on above: Performed By: #### U RTPCR #### [facility] [address] [address] [address] Benito Schwartz Calcium [Mass/Vol] 8.9 mg/dL Normal 8.5-10.1 [facility] Comment on above: Performed By: #### U RTPCR #### [facility] [address] [address] [address] Benito Schwartz Chloride [Moles/Vol] 100 mmol/L Normal 98-107 [facility] Comment on above: Performed By: #### U RTPCR #### [facility] [address] [address] [address] Benito Schwartz CO2 [Moles/Vol] 33.2 mmol/L Critically high 21.0-32.0 [facility] Comment on above: Performed By: #### U RTPCR #### [facility] [address] [address] [address] Benito Schwartz Creatinine [Mass/Vol] 2.31 mg/dL Critically high 0.70-1.30 [facility] Comment on above: Performed By: #### U RTPCR #### [facility] [address] [address] [address] Benito Schwartz EGFR-AF MACEDONIAN 33 mL/min/1.73m2 Critically low >=60 [facility] Comment on above: Performed By: #### U RTPCR #### [facility] [address] [address] [address] Benito Schwartz EGFR-NON AF MACEDONIAN 27 mL/min/1.73m2 Critically low >=60 [facility] Comment on above: Performed By: #### U RTPCR #### [facility] [address] [address] [address] Benito Schwartz Glucose [Mass/Vol] 112 mg/dL Critically high 74-106 [facility] Comment on above: Performed By: #### U RTPCR #### [facility] [address] [address] [address] Benito Schwartz Potassium [Moles/Vol] 4.3 mmol/L Normal 3.5-5.1 [facility] Comment on above: Performed By: #### U RTPCR #### [facility] [address] [address] [address] Benito Schwartz Sodium [Moles/Vol] 140 mmol/L Normal 136-145 [facility] Comment on above: Performed By: #### U RTPCR #### [facility] [address] [address] [address] Benito Schwartz Urea nitrogen [Mass/Vol] 51.0 mg/dL Critically high 7.0-18 .0 [facility] Comment on above: Performed By: #### U RTPCR #### [facility] [address] [address] [address] Benito Schwartz Urea nitrogen/Creatinine [Mass ratio] 22.1 mg/mg Normal [facility] Comment on above: Performed By: #### U RTPCR #### [facility] [address] [address] [address] Benito Schwartz TSHon 01-02-2023 TSH 27.692 uIU/mL Critically high 0.358-3.740 [facility] Comment on above: Performed By: #### C BC #### [facility] [address] [address] [address] Benito Schwartz UA RANDOMon 01-02-2023 Bilirubin Ql (U) Negative Normal NEGATIVE [facility] Comment on above: Performed By: #### U RTPCR #### [facility] [address] [address] [address] Benito Schwartz Clarity (U) CLEAR Normal CLEAR [facility] Comment on above: Performed By: #### U RTPCR #### [facility] [address] [address] [address] Benito Schwartz Color (U) LT. YELLOW Normal YELLOW [facility] Comment on above: Performed By: #### U RTPCR #### [facility] [address] [address] [address] Benito Schwartz Glucose Ql (U) Negative Normal NEGATIVE [facility] Comment on above: Performed By: #### U RTPCR #### [facility] [address] [place] [address] Dr. Benito Schwartz Hemoglobin Ql (U) Negative Normal NEGATIVE [facility] Comment on above: Performed By: #### U RTPCR #### [facility] [address] [place] [address] Dr. Benito Schwartz Ketones Ql (U) Negative Normal NEGATIVE [facility] Comment on above: Performed By: #### U RTPCR #### [facility] [address] [place] [address] Dr. Benito Schwartz LEUKOCYTES Negative Normal NEGATIVE [facility] Comment on above: Performed By: #### U RTPCR #### [facility] [address] [place] [address] Dr. Benito Schwartz Nitrite Ql (U) Negative Normal NEGATIVE [facility] Comment on above: Performed By: #### U RTPCR #### [facility] [address] [place] [address] Dr. Benito Schwartz pH (U) 6.0 [pH] Normal 5-9 [facility] Comment on above: Performed By: #### U RTPCR #### [facility] [address] [place] [address] Dr. Benito Schwartz SPEC GRAVITY <=1.005 Abnormal 1.005-<=1.0 25 [facility] Comment on above: Performed By: #### U RTPCR #### [facility] [address] [place] [address] Dr. Benito Schwartz UA PROTEIN Negative Normal NEGATIVE/ TRACE [facility] Comment on above: Performed By: #### U RTPCR #### [facility] [address] [place] [address] Dr. Benito Schwartz Urobilinogen Qn (U) 0.2 {Jagruti'U}/dL Normal 0.2 - 1. 0 [facility] Comment on above: Performed By: #### U RTPCR #### [facility] [address] [place] [address] Dr. Benito Schwartz URINE T PROTEIN CREAT RATIOo n 01-02-2023 Protein (U) [Mass/Vol] 19.1 mg/dL Critically high <=12.0 [facility] Comment on above: Performed By: #### F T4, PSASC #### [facility] [address] [place] [address] Dr. Benito Schwartz UR PROT CREAT RAT 0.75 Normal [facility] Comment on above: Performed By: #### F T4, PSASC #### [facility] [address] [place] [address] Dr. Benito Schwartz URINE CREAT 25.63 mg/dL Normal 20.00-300.0 0 [facility] Comment on above: Performed By: #### F T4, PSASC #### [facility] [address] [place] [address] Dr. Benito Schwartz VITAMIN D 25 OHon 01-02-2023 VIT D 25-OH 86.8 ng/mL Normal [facility] Comment on above: Performed By: #### U RTPCR #### [facility] [address] [place] [address] Dr. Benito Schwartz VIT D RANGES SEE BELOW Normal [facility] Comment on above: Result Comment: <20 ng/mL Vit D deficient 20 - <30 ng/mL Vit D insufficient 30 - 100 ng/mL Vit D sufficient >100 ng/mL Potential Toxicity Performed By: #### U RTPCR #### [facility] [address] [place] [address] Dr. Benito Schwartz T3, TOTAL (TRIIODOTHYRONINE) on 11-17-2022 T3, TOTAL 82 ng/dL Normal 71-180 [facility] Comment on above: Performed By: #### V ITAD #### [facility] [address] [address] [address] Benito Schwartz FREE T4on 11-16-2022 Free T4 [Mass/Vol] 0.93 ng/dL Normal 0.76-1.46 [facility] Comment on above: Performed By: #### C BC #### [facility] [address] [place] [address] Dr. Benito Schwartz TSHon 11-16-2022 TSH 31.189 uIU/mL Critically high 0.358-3.740 [facility] Comment on above: Performed By: #### F T4, PSASC #### [facility] [address] [place] [address] Dr. Benito Schawrtz T3, TOTAL (TRIIODOTHYRONINE) on 10-04-2022 T3, TOTAL 43 ng/dL Critically low 71-180 [facility] Comment on above: Performed By: #### F T4, PSASC #### [facility] [address] [place] [address] Dr. Benito Schwartz FREE T4on 10-03-2022 Free T4 [Mass/Vol] 0.35 ng/dL Critically low 0.76-1.46 [facility] Comment on above: Performed By: #### F T4, PSASC #### [facility] [address] [place] [address] Dr. Benito Schwartz TSHon 10-03-2022 TSH 121.174 uIU/mL Critically high 0.358-3.740 [facility] Comment on above: Performed By: #### F T4, PSASC #### [facility] [address] [place] [address] Dr. Benito Schwartz MAGNESIUMon 09-22-2022 Magnesium [Mass/Vol] 2.5 mg/dL Critically high 1.8-2.4 [facility] Comment on above: Performed By: #### F T4 #### [facility] [address] [place] [address] Dr. Benito Schwartz PROF CHEM 8 (BAS METB)on Anion gap [Moles/Vol] 7.3 mmol/L Normal [facility] Comment on above: Performed By: #### F T4 #### [facility] [address] [address] [address] Benito Schwartz Calcium [Mass/Vol] 8.8 mg/dL Normal 8.5-10.1 [facility] Comment on above: Performed By: #### F T4 #### [facility] [address] [address] [address] Benito Schwartz Chloride [Moles/Vol] 100 mmol/L Normal 98-107 [facility] Comment on above: Performed By: #### F T4 #### [facility] [address] [address] [address] Benito Schwartz CO2 [Moles/Vol] 33.7 mmol/L Critically high 21.0-32.0 [facility] Comment on above: Performed By: #### F T4 #### [facility] [address] [address] [address] Benito Schwartz Creatinine [Mass/Vol] 2.43 mg/dL Critically high 0.70-1.30 [facility] Comment on above: Performed By: #### F T4 #### [facility] [address] [address] [address] Benito Schwartz EGFR-AF MACEDONIAN 31 mL/min/1.73m2 Critically low >=60 [facility] Comment on above: Performed By: #### F T4 #### [facility] [address] [address] [address] Benito Schwartz EGFR-NON AF MACEDONIAN 26 mL/min/1.73m2 Critically low >=60 [facility] Comment on above: Performed By: #### F T4 #### [facility] [address] [address] [address] Benito Schwartz Glucose [Mass/Vol] 136 mg/dL Critically high 74-106 [facility] Comment on above: Performed By: #### F T4 #### [facility] [address] [address] [address] Benito Schwartz Potassium [Moles/Vol] 4.0 mmol/L Normal 3.5-5.1 [facility] Comment on above: Performed By: #### F T4 #### [facility] [address] [address] [address] Benito Schwartz Sodium [Moles/Vol] 137 mmol/L Normal 136-145 [facility] Comment on above: Performed By: #### F T4 #### [facility] [address] [place] [address] Dr. Benito Schwartz Urea nitrogen [Mass/Vol] 47.0 mg/dL Critically high 7.0-18 .0 [facility] Comment on above: Performed By: #### F T4 #### [facility] [address] [place] [address] Dr. Benito Schwartz Urea nitrogen/Creatinine [Mass ratio] 19.3 mg/mg Normal [facility] Comment on above: Performed By: #### F T4 #### [facility] [address] [place] [address] Dr. Benito Schwartz PTH INTACTon 09-10-2022 PTH, Intact 36 pg/mL Normal 15-65 [facility] Comment on above: Performed By: #### F T4, PSASC #### [facility] [address] [place] [address] Dr. Benito Schwartz CBC AUTO DIFFon 09-09-2022 BASO # 0.0 103/ul Normal 0.0-0.1 [facility] Comment on above: Performed By: #### F T4, PSASC #### [facility] [address] [place] [address] Dr. Benito Schwartz Basophils/100 WBC (Bld) 0.5 % Normal 0.2-2.0 [facility] Comment on above: Performed By: #### F T4, PSASC #### [facility] [address] [place] [address] Dr. Benito Schwartz EO # 0.4 103/ul Normal 0.0-0.7 [facility] Comment on above: Performed By: #### F T4, PSASC #### [facility] [address] [place] [address] Dr. Benito Schwartz Eosinophils/100 WBC (Bld) 5.3 % Normal 0.9-7.0 [facility] Comment on above: Performed By: #### F T4, PSASC #### [facility] [address] [place] [address] Dr. Benito Schwartz Erythrocyte distribution width (RBC) [Ratio] 14.3 % Normal 11.0-15.0 [facility] Comment on above: Performed By: #### F T4, PSASC #### [facility] [address] [place] [address] Dr. Benito Schwartz Hematocrit (Bld) [Volume fraction] 36.9 % Critically low 42.0-54.0 [facility] Comment on above: Performed By: #### F T4, PSASC #### [facility] [address] [place] [address] Dr. Benito Schwartz Hemoglobin (Bld) [Mass/Vol] 12.4 g/dL Critically low 14.0-18.0 [facility] Comment on above: Performed By: #### F T4, PSASC #### [facility] [address] [place] [address] Dr. Benito Schwartz IG # 0.04 10e3/ul Critically high 0.00-0.03 [facility] Comment on above: Performed By: #### F T4, PSASC #### [facility] [address] [place] [address] Dr. Benito Schwartz IG % 0.5 % Normal 0.0-0.5 [facility] Comment on above: Performed By: #### F T4, PSASC #### [facility] [address] [place] [address] Dr. Benito Schwartz LYMPH # 1.6 103/ul Normal 1.2-3.8 [facility] Comment on above: Performed By: #### F T4, PSASC #### [facility] [address] [place] [address] Dr. Benito Schwartz Lymphocytes/100 WBC (Bld) 22.2 % Normal 20.5-60.0 [facility] Comment on above: Performed By: #### F T4, PSASC #### [facility] [address] [place] [address] Dr. Benito Schwartz MANUAL DIFF REQ NO Normal [facility] Comment on above: Performed By: #### F T4, PSASC #### [facility] [address] [place] [address] Dr. Benito Schwartz MCH (RBC) [Entitic mass] 31.2 pg Normal 25.9-34.0 [facility] Comment on above: Performed By: #### F T4, PSASC #### [facility] [address] [place] [address] Dr. Benito Schwartz MCHC (RBC) [Mass/Vol] 33.6 g/dL Normal 29.9-35.2 [facility] Comment on above: Performed By: #### F T4, PSASC #### [facility] [address] [place] [address] Dr. Benito Schwartz MCV (RBC) [Entitic vol] 92.7 fL Normal 80.0-94.0 [facility] Comment on above: Performed By: #### F T4, PSASC #### [facility] [address] [place] [address] Dr. Benito Schwartz MONO # 0.5 103/ul Normal 0.3-0.8 [facility] Comment on above: Performed By: #### F T4, PSASC #### [facility] [address] [place] [address] Dr. Benito Schwartz Monocytes/100 WBC (Bld) 6.4 % Normal 1.7-12.0 [facility] Comment on above: Performed By: #### F T4, PSASC #### [facility] [address] [place] [address] Dr. Benito Schwartz NEUT # 4.8 103/ul Normal 1.4-6.5 [facility] Comment on above: Performed By: #### F T4, PSASC #### [facility] [address] [place] [address] Dr. Benito Schwartz Neutrophils/100 WBC (Bld) 65.1 % Normal 43.0-75.0 [facility] Comment on above: Performed By: #### F T4, PSASC #### [facility] [address] [address] [address] Benito Schwartz Platelet mean volume (Bld) [Entitic vol] 8.7 fL Critically low 9.5-13.5 [facility] Comment on above: Performed By: #### F T4, PSASC #### [facility] [address] [address] [address] Benito Schwartz PLT 206 103/ul Normal 150-450 [facility] Comment on above: Performed By: #### F T4, PSASC #### [facility] [address] [address] [address] Benito Schwartz RBC 3.98 106/ul Critically low 4.70-6.10 [facility] Comment on above: Performed By: #### F T4, PSASC #### [facility] [address] [place] [address] Dr. Benito Schwartz WBC 7.4 103/ul Normal 4.0-11.0 [facility] Comment on above: Performed By: #### F T4, PSASC #### [facility] [address] [address] [address] Benito Schwartz MAGNESIUMon 09-09-2022 Magnesium [Mass/Vol] 2.1 mg/dL Normal 1.8-2.4 [facility] Comment on above: Performed By: #### B 12FOL, FETIBC #### [facility] [address] [address] [address] Benito Schwartz PHOSPHORUSon 09-09-2022 Phosphate [Mass/Vol] 3.2 mg/dL Normal 2.6-4.7 [facility] Comment on above: Performed By: #### B 12FOL, FETIBC #### [facility] [address] [address] [address] Benito Schwartz PROF CHEM 8 (BAS METB)on Anion gap [Moles/Vol] 10.1 mmol/L Normal [facility] Comment on above: Performed By: #### B 12FOL, FETIBC #### [facility] [address] [place] [address] Dr. Benito Schwartz Calcium [Mass/Vol] 9.3 mg/dL Normal 8.5-10.1 [facility] Comment on above: Performed By: #### B 12FOL, FETIBC #### [facility] [address] [address] [address] Benito Schwartz Chloride [Moles/Vol] 99 mmol/L Normal 98-107 [facility] Comment on above: Performed By: #### B 12FOL, FETIBC #### [facility] [address] [place] [address] Dr. Benito Schwartz CO2 [Moles/Vol] 32.4 mmol/L Critically high 21.0-32.0 [facility] Comment on above: Performed By: #### B 12FOL, FETIBC #### [facility] [address] [place] [address] Dr. Benito Schwartz Creatinine [Mass/Vol] 2.77 mg/dL Critically high 0.70-1.30 [facility] Comment on above: Performed By: #### B 12FOL, FETIBC #### [facility] [address] [address] [address] Benito Schwartz EGFR-AF MACEDONIAN 27 mL/min/1.73m2 Critically low >=60 [facility] Comment on above: Performed By: #### B 12FOL, FETIBC #### [facility] [address] [place] [address] Dr. Benito Schwartz EGFR-NON AF MACEDONIAN 22 mL/min/1.73m2 Critically low >=60 [facility] Comment on above: Performed By: #### B 12FOL, FETIBC #### [facility] [address] [address] [address] Benito Schwartz Glucose [Mass/Vol] 166 mg/dL Critically high 74-106 [facility] Comment on above: Performed By: #### B 12FOL, FETIBC #### [facility] [address] [address] [address] Benito Schwartz Potassium [Moles/Vol] 3.5 mmol/L Normal 3.5-5.1 [facility] Comment on above: Performed By: #### B 12FOL, FETIBC #### [facility] [address] [address] [address] Benito Schwartz Sodium [Moles/Vol] 138 mmol/L Normal 136-145 [facility] Comment on above: Performed By: #### B 12FOL, FETIBC #### [facility] [address] [place] [address] Dr. Benito Schwartz Urea nitrogen [Mass/Vol] 50.0 mg/dL Critically high 7.0-18 .0 [facility] Comment on above: Performed By: #### B 12FOL, FETIBC #### [facility] [address] [place] [address] Dr. Benito Schwartz Urea nitrogen/Creatinine [Mass ratio] 18.1 mg/mg Normal [facility] Comment on above: Performed By: #### B 12FOL, FETIBC #### [facility] [address] [place] [address] Dr. Benito Schwartz UA RANDOMon 09-09-2022 Bilirubin Ql (U) Negative Normal NEGATIVE [facility] Comment on above: Performed By: #### V ITAD #### [facility] [address] [place] [address] Dr. Benito Schwartz Clarity (U) CLEAR Normal CLEAR [facility] Comment on above: Performed By: #### V ITAD #### [facility] [address] [place] [address] Dr. Benito Schwartz Color (U) LT. YELLOW Normal YELLOW [facility] Comment on above: Performed By: #### V ITAD #### [facility] [address] [place] [address] Dr. Benito Schwartz Glucose Ql (U) Negative Normal NEGATIVE [facility] Comment on above: Performed By: #### V ITAD #### [facility] [address] [place] [address] Dr. Benito Schwartz Hemoglobin Ql (U) Negative Normal NEGATIVE [facility] Comment on above: Performed By: #### V ITAD #### [facility] [address] [place] [address] Dr. Benito Schwartz Ketones Ql (U) Negative Normal NEGATIVE [facility] Comment on above: Performed By: #### V ITAD #### [facility] [address] [place] [address] Dr. Benito Schwartz LEUKOCYTES Negative Normal NEGATIVE [facility] Comment on above: Performed By: #### V ITAD #### [facility] [address] [place] [address] Dr. Benito Schwartz Nitrite Ql (U) Negative Normal NEGATIVE [facility] Comment on above: Performed By: #### V ITAD #### [facility] [address] [place] [address] Dr. Benito Schwartz pH (U) 5.5 [pH] Normal 5-9 [facility] Comment on above: Performed By: #### V ITAD #### [facility] [address] [place] [address] Dr. Benito Schwartz SPEC GRAVITY 1.010 Normal 1.005-<=1.[address] [place] [address] Comment on above: Performed By: #### V ITAD #### [facility] [address] [place] [address] Dr. Benito Schwartz UA PROTEIN Negative Normal NEGATIVE/ TRACE [facility] Comment on above: Performed By: #### V ITAD #### [facility] [address] [place] [address] Dr. Benito Schwatrz Urobilinogen Qn (U) 0.2 {Jagruti'U}/dL Normal 0.2 - 1. 0 [facility] Comment on above: Performed By: #### V ITAD #### [facility] [address] [place] [address] Dr. Benito Schwartz URINE T PROTEIN CREAT RATIOo n 09-09-2022 Protein (U) [Mass/Vol] 16.4 mg/dL Critically high <=12.0 [facility] Comment on above: Performed By: #### T SH, FT3, BMP #### [facility] [address] [place] [address] Dr. Benito Schwartz UR PROT CREAT RAT 0.79 Normal [facility] Comment on above: Performed By: #### T SH, FT3, BMP #### [facility] [address] [address] [address] Benito Schwartz URINE CREAT 20.88 mg/dL Normal 20.00-300.0 0 [facility] Comment on above: Performed By: #### T SH, FT3, BMP #### [facility] [address] [address] [address] Benito Schwartz VITAMIN D 25 OHon 09-09-2022 VIT D 25-OH 83.7 ng/mL Normal [facility] Comment on above: Performed By: #### V ITAD #### [facility] [address] [address] [address] Benito Schwartz VIT D RANGES SEE BELOW Normal [facility] Comment on above: Result Comment: <20 ng/mL Vit D deficient 20 - <30 ng/mL Vit D insufficient 30 - 100 ng/mL Vit D sufficient >100 ng/mL Potential Toxicity Performed By: #### V ITAD #### [facility] [address] [address] [address] Benito Schwartz Albumin [Mass/volume] in Ser um or PlasmaOrdered By: Leigha Nelson on 08-31-2022 Albumin [Mass/Vol] 3.9 g/dL 3.2-5.5 [facility] Basophils Auto (Bld) [#/Vol] Ordered By: Leigha Nelson on 08-31-2022 Basophils (Bld) [#/Vol] 0.0 10*3/uL 0.0-0.2 [facility] Basophils/100 WBC Auto (Bld) Ordered By: Leigha Nelson on 08-31-2022 Basophils/100 WBC (Bld) 0.5 % . [facility] Creatinine and Glomerular fi ltration rate.predicted panel (S/P/Bld)Ordered By: Leigha Nelson on 08-31-2022 Creatinine [Mass/Vol] 2.63 mg/dL 0.64-1.27 [facility] Eosinophils Auto (Bld) [#/Vo l]Ordered [...] non-blacks MDRD (S/P/Bld) [Vol rate/Area] 24 mL/Min [facility] GFR/1.73 sq M.predicted among non-blacks MDRD (S/P/Bld) [Vol rate/Area] Estimated glomerular filtration rate (GFR) non- [facility] Globulin Calc (S) [Mass/Vol] Ordered By: Leigha Nelson on 08-31-2022 Globulin (S) [Mass/Vol] 2.8 g/dL [facility] Hematocrit Auto (Bld) [Volum e fraction]Ordered [...] 08-31-2022 WBC (Bld) [#/Vol] 6.7 10*3/uL 4.5-11.0 [facility] Lymphocytes Auto (Bld) [#/Vo l]Ordered [...] MCHC (RBC) [Mass/Vol] 33.4 g/dL 32.5-35.6 [facility] MCV Auto (RBC) [Entitic vol] Ordered By: Leigha Nelson on 08-31-2022 MCV (RBC) [Entitic vol] 92.9 fL 83.5-101 [facility] Monocytes Auto (Bld) [#/Vol] Ordered By: Leigha Nelson on 08-31-2022 Monocytes (Bld) [#/Vol] 0.6 10*3/uL 0.0-0.8 [facility] Monocytes/100 WBC Auto (Bld) Ordered By: Leigha Nelson on 08-31-2022 Monocytes/100 WBC (Bld) 8.4 % . [facility] Neutrophils Auto (Bld) [#/Vo l]Ordered By: [...] Creatinine Clearance (Chem 26.08 [facility] 0.1 % 0-0.5 [facility] 29 mL/Min [facility] Platelet mean volume Auto [...] on 08-31-2022 Protein [Mass/Vol] 6.7 g/dL 6.1-7.9 [facility] RBC Auto (Bld) [#/Vol]Ordere d By: Leigha Nelson on 08-31-2022 RBC (Bld) [#/Vol] 4.00 10*6/uL 3.90-5.60 [facility] Serum or plasma alanine paige otransferase measurement without P-5'-P (enzymatic activiOrdered By: Leigha Nelson on 08-31-2022 ALT No additional P-5'-P [Catalytic activity/Vol] 26 U/L 10-60 [facility] Serum or plasma albumin/glob ulin mass ratioOrdered By: Leigha Nelson on 08-31-2022 Albumin/Globulin [Mass ratio] 1.4 {ratio} [facility] Serum or plasma alkaline mega sphatase measurement (enzymatic activity/volume)Ordered By: Leigha Nelson on 08-31-2022 ALP [Catalytic activity/Vol] 112 U/L 32-92 [facility] Serum or plasma anion gap de terminationOrdered By: Leigha Nelson on 08-31-2022 Anion gap [Moles/Vol] 9.4 mmol/L 6.0-15.0 [facility] Serum or plasma aspartate am inotransferase measurement (enzymatic activity/volume)Ordered By: Leigha Nelson on 08-31-2022 AST [Catalytic activity/Vol] 32 U/L 10-42 [facility] Serum or plasma calcium darshan urement (mass/volume)Ordered By: Leigha Nelson on 08-31-2022 Calcium [Mass/Vol] 8.9 mg/dL 8.2-10.2 [facility] Serum or plasma carcinoembry onic antigen measurement (mass/volume)Ordered By: Leigha Nelson on 08-31-2022 Carcinoembryonic Ag [Mass/Vol] 2.5 ng/mL 0.0-3.0 [facility] Serum or plasma chloride ernestine surement (moles/volume)Ordered By: Leigha Nelson on 08-31-2022 Chloride [Moles/Vol] 98 mmol/L 95-114 [facility] Serum or plasma glucose darshan urement (mass/volume)Ordered By: Leigha Nelson on 08-31-2022 Glucose [Mass/Vol] 104 mg/dL 70-100 [facility] Comment on above: ADA recommended refe rence rangeRandom Glucose Reference Range is dependent on time and content of last meal. Glucose of more than 200 mg/dL in a nonstressed, ambulatory subject supports the diagnosis of Diabetes Mellitus. Serum or plasma potassium me asurement (moles/volume)Ordered By: Leigha Nelson on 08-31-2022 Potassium [Moles/Vol] 3.4 mmol/L 3.5-5.1 [facility] Serum or plasma sodium measu rement (moles/volume)Ordered By: Leigha Nelson on 08-31-2022 Sodium [Moles/Vol] 135 mmol/L 136-146 [facility] Serum or plasma total biliru bin measurement (mass/volume)Ordered By: Leigha Nelson on 08-31-2022 Bilirubin [Mass/Vol] 0.8 mg/dL 0.3-1.2 [facility] Serum or plasma total carbon dioxide measurement (moles/volume)Ordered By: Leigha Nelson on 08-31-2022 CO2 [Moles/Vol] 31.0 mmol/L 22.0-30.0 [facility] Serum or plasma urea nitroge n measurement (mass/volume)Ordered By: Leigha Nelson on 08-31-2022 Urea nitrogen [Mass/Vol] 40 mg/dL 07-08 [facility] T3, TOTAL (TRIIODOTHYRONINE) on 08-31-2022 T3, TOTAL 42 ng/dL Critically low 71-180 [facility] Comment on above: Performed By: #### F T4, PSASC #### [facility] [address] [address] [address] Benito Schwartz FREE T4on 08-30-2022 Free T4 [Mass/Vol] 0.11 ng/dL Critically low 0.76-1.46 [facility] Comment on above: Performed By: #### V ITAD #### [facility] [address] [address] [address] Benito Schwartz TSHon 08-30-2022 TSH 121.477 uIU/mL Critically high 0.358-3.740 [facility] Comment on above: Performed By: #### F T4 #### [facility] [address] [address] [address] Benito Schwartz Glucose Glucometer ([facility]) [M ass/Vol]Ordered By: Ramesh Rascon on 07-21-2022 Glucose [Mass/Vol] 105 mg/dL [facility] Comment on above: Random Glucose Refer ence Range is dependent on time and content of last meal. Glucose of more than 200 mg/dL in a nonstressed, ambulatory subject supports the diagnosis of Diabetes Mellitus. T3, TOTAL (TRIIODOTHYRONINE) on 07-21-2022 T3, TOTAL 56 ng/dL Critically low 71-180 [facility] Comment on above: Performed By: #### F T4, PSASC #### [facility] [address] [place] [address] Dr. Benito Schwartz FREE T4on 07-20-2022 Free T4 [Mass/Vol] 0.48 ng/dL Critically low 0.76-1.46 [facility] Comment on above: Performed By: #### V ITAD #### [facility] [address] [address] [address] Benito Schwartz TSHon 07-20-2022 TSH 67.173 uIU/mL Critically high 0.358-3.740 [facility] Comment on above: Performed By: #### U RTPCR #### [facility] [address] [address] [address] Benito Schwartz COVID-19 SOFIAOrdered By: Lucia Rascon on 07-19-2022 SARS-CoV+SARS-CoV-2 (COVID-19) Ag IA.rapid Ql (Resp) Negative Negative [facility] Comment on above: This is a duplicate [place] SARS Antigen (MADHU) result to be used for statistical tracking purpose only. No Panel InformationOrdered By: Ramesh Rascon on 07-19-2022 SARS Antigen (LFIA) [facility] Albumin [Mass/volume] in Ser um or PlasmaOrdered By: Chivo Keller on 05-31-2022 Albumin [Mass/Vol] 3.9 g/dL 3.2-5.5 [facility] Basophils Auto (Bld) [#/Vol] Ordered By: Chivo Keller on 05-31-2022 Basophils (Bld) [#/Vol] 0.1 10*3/uL 0.0-0.2 [facility] Basophils/100 WBC Auto (Bld) Ordered By: Chivo Keller on 05-31-2022 Basophils/100 WBC (Bld) 0.8 % . [facility] Blood hemoglobin measurement (mass/volume)Ordered By: Chivo Keller on 05-31-2022 Hemoglobin (Bld) [Mass/Vol] 11.1 g/dL 13.0-17.0 [facility] Blood leukocytes automated c ount (number/volume)Ordered By: Chivo Keller on 05-31-2022 WBC (Bld) [#/Vol] 8.8 10*3/uL 4.5-11.0 [facility] CT biopsyOrdered By: Danuta Klely on 05-31-2022 Transferrin [Mass/Vol] 210 mg/dL 180-380 [facility] Creatinine (Bld) [Mass/Vol]O rdered By: Nikunj Shultz on 05-31-2022 Creatinine [Mass/Vol] 2.4 mg/dL High 0.6-1.3 [facility] Comment on above: ER/ESD physician is notified/shown all ISTAT results. Critical values may be confirmed by laboratory testing if deemed necessary by ER attending doctor. ER/ESD physician is notified/shown all ISTAT results.Critical values may be confirmed by laboratory testing ifdeemed necessary by ER attending doctor. Creatinine [Mass/Vol] Whole blood creatinine measurement High 0.6-1.3 [facility] Creatinine and Glomerular fi ltration rate.predicted panel (S/P/Bld)Ordered By: Chivo Keller on 05-31-2022 Creatinine [Mass/Vol] 2.23 mg/dL 0.64-1.27 [facility] Eosinophils Auto (Bld) [#/Vo l]Ordered [...] non-blacks MDRD (S/P/Bld) [Vol rate/Area] 28 mL/Min [facility] Ferritin [Mass/volume] in Se rum or PlasmaOrdered By: Danuta Kelly on 05-31-2022 Ferritin [Mass/Vol] 96.9 ng/mL 23.9-336.2 [facility] Folate [Mass/volume] in Seru m or PlasmaOrdered By: Danuta Kelly on 05-31-2022 Folate [Mass/Vol] 17.7 ng/mL >5.9 [facility] Comment on above: Folate reference ran ge: >5.9 ng/ml The WHO technical consultation on folate and vitamin b12 deficiencies has determined that folate concentrations less than 4 ng/ml are considered deficient. Folate reference ran ge: >5.9 ng/mlThe WHO technical consultation on folate and vitamin [id number] has determined that folate concentrations lessthan 4 ng/ml are considered deficient. Globulin Calc (S) [Mass/Vol] Ordered By: Chivo Keller on 05-31-2022 Globulin (S) [Mass/Vol] 3.4 g/dL [facility] Hematocrit Auto (Bld) [Volum e fraction]Ordered [...] 05-31-2022 MCHC (RBC) [Mass/Vol] 33.1 g/dL 32.5-35.6 [facility] MCV Auto (RBC) [Entitic vol] Ordered By: Chivo Keller on 05-31-2022 MCV (RBC) [Entitic vol] 88.2 fL 83.5-101 [facility] Monocytes Auto (Bld) [#/Vol] Ordered By: Chivo Keller on 05-31-2022 Monocytes (Bld) [#/Vol] 0.7 10*3/uL 0.0-0.8 [facility] Monocytes/100 WBC Auto (Bld) Ordered By: Chivo Keller on 05-31-2022 Monocytes/100 WBC (Bld) 8.0 % . [facility] Neutrophils Auto (Bld) [#/Vo l]Ordered By: Chivo Keller on 05-31-2022 Neutrophils (Bld) [#/Vol] 6.2 10*3/uL 1.8-7.7 [facility] Neutrophils/100 WBC Auto (Bl d)Ordered By: Chivo Keller on 05-31-2022 Neutrophils/100 WBC (Bld) 69.9 % . [facility] No Panel InformationOrdered By: Nikunj Shultz on 05-31-2022 POC Estimated GFR [address] [place] [address] Comment on above: GFR estimated refere nce range: According to KDOQI guidelines, <60 ml/min/1.73m2 is sufficient to diagnose a patient with chronic kidney disease. POC Estimated GFR Non- Amer 26 [facility] [address] No Panel InformationOrdered By: Chivo Keller [...] on 05-31-2022 Protein [Mass/Vol] 7.3 g/dL 6.1-7.9 [facility] RBC Auto (Bld) [#/Vol]Ordere d By: Chivo Keller on 05-31-2022 RBC (Bld) [#/Vol] 3.81 10*6/uL 3.90-5.60 [facility] Serum or plasma alanine paige otransferase measurement without P-5'-P (enzymatic activiOrdered By: Chivo Keller on 05-31-2022 ALT No additional P-5'-P [Catalytic activity/Vol] 17 U/L 10-60 [facility] Serum or plasma albumin/glob ulin [...] on 05-31-2022 Calcium [Mass/Vol] 9.5 mg/dL 8.2-10.2 [facility] Serum or plasma carcinoembry onic antigen measurement (mass/volume)Ordered By: Chivo Keller on 05-31-2022 Carcinoembryonic Ag [Mass/Vol] 1.8 ng/mL 0.0-3.0 [facility] Serum or plasma chloride ernestine surement (moles/volume)Ordered By: Chivo Keller on 05-31-2022 Chloride [Moles/Vol] 101 mmol/L 95-114 [facility] Serum or plasma glucose darshan urement (mass/volume)Ordered By: Chivo Keller on 05-31-2022 Glucose [Mass/Vol] 108 mg/dL 70-100 [facility] Comment on above: ADA recommended [...] on 05-31-2022 Potassium [Moles/Vol] 4.4 mmol/L 3.5-5.1 [facility] Serum or plasma sodium measu rement (moles/volume)Ordered By: Chivo Keller on 05-31-2022 Sodium [Moles/Vol] 140 mmol/L 136-146 [facility] Serum or plasma total biliru bin measurement (mass/volume)Ordered By: Chivo Keller on 05-31-2022 Bilirubin [Mass/Vol] 0.5 mg/dL 0.3-1.2 [facility] Serum or plasma total carbon dioxide measurement (moles/volume)Ordered By: Chivo Keller on 05-31-2022 CO2 [Moles/Vol] 29.7 mmol/L 22.0-30.0 [facility] Serum or plasma urea nitroge n measurement (mass/volume)Ordered By: Chivo Keller on 05-31-2022 Urea nitrogen [Mass/Vol] 42 mg/dL 07-08 [facility] CBC W/DIFFon 05-26-2022 ABS IMM GRANS 0.1 10*3/uL Normal 0.0-0.2 [facility] Comment on above: Performed By: #### 5 0103 #### [facility] [address] [place] [address], [facility] ABS NEUTROPHILS 6.4 10*3/uL Normal 1.6-7.6 [facility] Comment on above: Performed By: #### 5 0103 #### [facility] [address] [place] [address], [facility] Basophils (Bld) [#/Vol] 0.0 10*3/uL Normal 0.0-0.2 [facility] Comment on above: Performed By: #### 5 0103 #### [facility] [address] [place] [address], [facility] Basophils/100 WBC (Bld) 0.4 % Normal 0.0-1.0 T mela [facility] Comment on above: Performed By: #### 5 0103 #### [facility] [address] [place] [address], [facility] Eosinophils (Bld) [#/Vol] 0.4 10*3/uL Normal 0.0-0.5 [facility] Comment on above: Performed By: #### 5 0103 #### [facility] [address] [place] [address], [facility] Eosinophils/100 WBC (Bld) 4.3 % Normal 0.0-6.0 [facility] Comment on above: Performed By: #### 5 3 #### [facility] [address] [place] [address], [facility] Erythrocyte distribution width (RBC) [Ratio] 15.9 % High 11.5-15.0 [facility] Comment on above: Performed By: #### 5 0103 #### [facility] [address] [facility] [address] Hematocrit (Bld) [Volume fraction] 31.6 % Low 39.0-50.0 [facility] Comment on above: Performed By: #### 3 #### [facility] [address] [facility]. [address] Hemoglobin (Bld) [Mass/Vol] 10.0 g/dL Low 13.0-17.0 [facility] Comment on above: Performed By: #### 3 #### [facility] [address] IMMATURE GRANS 0.8 % Normal 0.0-1.0 [facility] Comment on above: Performed By: #### 102 #### [facility] [address] Lymphocytes (Bld) [#/Vol] 1.6 10*3/uL Normal 1.2-4.0 [facility] Comment on above: Performed By: #### 3 #### [facility] [address] Lymphocytes/100 WBC (Bld) 16.8 % Low 20.0-45.0 [facility] Comment on above: Performed By: #### 5 3 #### [facility] [address] [facility]. [address] MCH (RBC) [Entitic mass] 28.7 pg Normal 27.0-33.0 [facility] Comment on above: Performed By: #### 3 #### [facility] [address] MCHC (RBC) [Mass/Vol] 31.6 g/dL Low 32.0-35.0 [facility] Comment on above: Performed By: #### 5 0103 #### [facility] [address] [place] [address], [facility] MCV (RBC) [Entitic vol] 90.5 fL Normal 82.0-98.0 T he [facility] Comment on above: Performed By: #### 3 #### [facility] [address] [facility] [place] [id number], [facility] Monocytes (Bld) [#/Vol] 0.8 10*3/uL Normal 0.1-1.0 [facility] Comment on above: Performed By: #### 102 #### [facility] [address] [facility] [place] [address], [facility] MONOS 9.0 % Normal 5.0-12.0 [facility] Comment on above: Performed By: #### 102 #### [facility] [address] [facility] [place] [address], [facility] Neutrophils/100 WBC (Bld) 68.7 % Normal 40.0-72.0 [facility] Comment on above: Performed By: #### 102 #### [facility] [address] [place] [address], [facility] Nucleated RBC/100 WBC (Bld) [Ratio] 0 % Normal 0-0 [facility] Comment on above: Performed By: #### 5 3 #### [facility] [address] [place] [address], [facility] PLAT CNT 292 10*3/uL Normal 150-400 [facility] Comment on above: Performed By: #### 102 #### [facility] [address] [facility] [place] [address], [facility] RBC (Bld) [#/Vol] 3.49 10*6/uL Low 4.20-5.70 [facility] Comment on above: Performed By: #### 3 #### [facility] [address] [place] [address], [facility] WBC (Bld) [#/Vol] 9.29 10*3/uL Normal 4.00-10.60 [facility] Comment on above: Performed By: #### 5 0103 #### [facility] [address] [place] [address], [facility] IMMUNOGLOBULIN Jovany 2 [place] Normal [facility] Comment on above: Result Comment: Test Performed by [employer] [address] [place] [address] - Released 05/27/2022 12:45 IMMUNOGLOBULIN E 308 IU/mL High <101 [facility] THYROID-STIMULATING IMMUNOGL OBULINon 05-14-2022 Thyroid Sim Immunoglobulin <0.10 Normal 0.00-0.55 [facility] Comment on above: Performed By: #### C BC #### [facility] [address] [place] [address] Dr. Benito Schwartz THYROTROPIN RECEPTOR ABon Thyrotropin Receptor Ab, Serum <1.10 Normal 0.00-1.75 [facility] Comment on above: Performed By: #### C BC #### [facility] [address] [place] [address] Dr. Benito Schwartz PTH INTACTon 05-13-2022 PTH, Intact 18 pg/mL Normal 15-65 [facility] Comment on above: Performed By: #### C BC #### [facility] [address] [place] [address] Dr. Benito Schwartz T3, TOTAL (TRIIODOTHYRONINE) on 05-13-2022 T3, TOTAL 80 ng/dL Normal 71-180 [facility] Comment on above: Performed By: #### U RTPCR #### [facility] [address] [place] [address] Dr. Benito Schwartz VIT D 25-OH LABCORPon 2021 Vitamin D, 25-Hydroxy 84.3 ng/mL Normal 30.0-100.0 [facility] Comment on above: Result Comment: Randi min D deficiency has been defined by the [place] of [employer] and an Endocrine Society practice guideline as a level of serum 25-OH vitamin D less than 20 ng/mL (1,2). The Endocrine Society went on to further define vitamin D insufficiency as a level between 21 and 29 ng/mL (2). 1. IOM ([place] of [employer]). 2010. Dietary reference intakes for calcium and D. [place]: The National Academies Press. 2. Annamarie MF, Milena [place], Jamin BURGESS, et al. Evaluation, treatment, and prevention of vitamin D deficiency: an Endocrine Society clinical practice guideline. JCEM. 2010; 96(7):1911-30. Performed By: #### U RTPCR #### [facility] [address] [place] [address] Dr. Benito Schwartz CBC AUTO DIFFon 05-12-2022 BASO # 0.0 103/ul Normal 0.0-0.1 [facility] Comment on above: Performed By: #### C BC #### [facility] [address] [place] [address] Dr. Benito Schwartz Basophils/100 WBC (Bld) 0.2 % Normal 0.2-2.0 [facility] Comment on above: Performed By: #### C BC #### [facility] [address] [place] [address] Dr. Benito Schwartz EO # 0.4 103/ul Normal 0.0-0.7 [facility] Comment on above: Performed By: #### C BC #### [facility] [address] [place] [address] Dr. Benito Schwartz Eosinophils/100 WBC (Bld) 4.4 % Normal 0.9-7.0 [facility] Comment on above: Performed By: #### C BC #### [facility] [address] [place] [address] Dr. Benito Schwartz Erythrocyte distribution width (RBC) [Ratio] 15.0 % Normal 11.0-15.0 [facility] Comment on above: Performed By: #### C BC #### [facility] [address] [place] [address] Dr. Benito Schwartz Hematocrit (Bld) [Volume fraction] 29.8 % Critically low 42.0-54.0 [facility] Comment on above: Performed By: #### C BC #### [facility] [address] [place] [address] Dr. Benito Schwartz Hemoglobin (Bld) [Mass/Vol] 9.7 g/dL Critically low 14.0-18.0 [facility] Comment on above: Performed By: #### C BC #### [facility] [address] [place] [address] Dr. Benito Schwartz IG # 0.06 10e3/ul Critically high 0.00-0.03 [facility] Comment on above: Performed By: #### C BC #### [facility] [address] [place] [address] Dr. Benito Schwartz IG % 0.7 % Critically high 0.0-0.5 [facility] Comment on above: Performed By: #### C BC #### [facility] [address] [place] [address] Dr. Benito Schwartz LYMPH # 1.9 103/ul Normal 1.2-3.8 [facility] Comment on above: Performed By: #### C BC #### [facility] [address] [place] [address] Dr. Benito Schwartz Lymphocytes/100 WBC (Bld) 21.1 % Normal 20.5-60.0 [facility] Comment on above: Performed By: #### C BC #### [facility] [address] [place] [address] Dr. Benito Schwartz MANUAL DIFF REQ NO Normal [facility] Comment on above: Performed By: #### C BC #### [facility] [address] [place] [address] Dr. Benito Schwartz MCH (RBC) [Entitic mass] 29.0 pg Normal 25.9-34.0 [facility] Comment on above: Performed By: #### C BC #### [facility] [address] [place] [address] Dr. Benito Schwartz MCHC (RBC) [Mass/Vol] 32.6 g/dL Normal 29.9-35.2 [facility] Comment on above: Performed By: #### C BC #### [facility] [address] [place] [address] Dr. Benito Schwartz MCV (RBC) [Entitic vol] 89.0 fL Normal 80.0-94.0 [facility] Comment on above: Performed By: #### C BC #### [facility] [address] [place] [address] Dr. Benito Schwartz MONO # 0.9 103/ul Critically high 0.3-0.8 [facility] Comment on above: Performed By: #### C BC #### [facility] [address] [place] [address] Dr. Benito Schwartz Monocytes/100 WBC (Bld) 9.9 % Normal 1.7-12.0 [facility] Comment on above: Performed By: #### C BC #### [facility] [address] [place] [address] Dr. Benito Schwartz NEUT # 5.8 103/ul Normal 1.4-6.5 [facility] Comment on above: Performed By: #### C BC #### [facility] [address] [place] [address] Dr. Benito Schwartz Neutrophils/100 WBC (Bld) 63.7 % Normal 43.0-75.0 [facility] Comment on above: Performed By: #### C BC #### [facility] [address] [place] [address] Dr. Benito Schwartz Platelet mean volume (Bld) [Entitic vol] 8.7 fL Critically low 9.5-13.5 [facility] Comment on above: Performed By: #### C BC #### [facility] [address] [place] [address] Dr. Benito Schwartz PLT 253 103/ul Normal 150-450 [facility] Comment on above: Performed By: #### C BC #### [facility] [address] [place] [address] Dr. Benito Schwartz RBC 3.35 106/ul Critically low 4.70-6.10 [facility] Comment on above: Performed By: #### C BC #### [facility] [address] [place] [address] Dr. Benito Schwartz WBC 9.1 103/ul Normal 4.0-11.0 [facility] Comment on above: Performed By: #### C BC #### [facility] [address] [place] [address] Dr. Benito Schwartz FREE T4on 05-12-2022 Free T4 [Mass/Vol] 1.25 ng/dL Normal 0.76-1.46 [facility] Comment on above: Performed By: #### V ITAD #### [facility] [address] [place] [address] Dr. Benito Schwartz MAGNESIUMon 05-12-2022 Magnesium [Mass/Vol] 2.1 mg/dL Normal 1.8-2.4 [facility] Comment on above: Performed By: #### F T4 #### [facility] [address] [place] [address] Dr. Benito Schwartz PHOSPHORUSon 05-12-2022 Phosphate [Mass/Vol] 4.2 mg/dL Normal 2.6-4.7 [facility] Comment on above: Performed By: #### F T4 #### [facility] [address] [place] [address] Dr. Benito Schwartz PROF CHEM 8 (BAS METB)on Anion gap [Moles/Vol] 13.4 mmol/L Normal [facility] Comment on above: Performed By: #### F T4 #### [facility] [address] [place] [address] Dr. Benito Schwartz Calcium [Mass/Vol] 9.1 mg/dL Normal 8.5-10.1 [facility] Comment on above: Performed By: #### F T4 #### [facility] [address] [place] [address] Dr. Benito Schwartz Chloride [Moles/Vol] 103 mmol/L Normal 98-107 [facility] Comment on above: Performed By: #### F T4 #### [facility] [address] [address] [address] Benito Schwartz CO2 [Moles/Vol] 28.6 mmol/L Normal 21.0-32.0 [facility] Comment on above: Performed By: #### F T4 #### [facility] [address] [address] [address] Benito Schwartz Creatinine [Mass/Vol] 2.30 mg/dL Critically high 0.70-1.30 [facility] Comment on above: Performed By: #### F T4 #### [facility] [address] [address] [address] Benito Schwartz EGFR-AF MACEDONIAN 33 mL/min/1.73m2 Critically low >=60 [facility] Comment on above: Performed By: #### F T4 #### [facility] [address] [address] [address] Benito Schwartz EGFR-NON AF MACEDONIAN 27 mL/min/1.73m2 Critically low >=60 [facility] Comment on above: Performed By: #### F T4 #### [facility] [address] [address] [address] Benito Schwartz Glucose [Mass/Vol] 123 mg/dL Critically high 74-106 [facility] Comment on above: Performed By: #### F T4 #### [facility] [address] [address] [address] Benito Schwartz Potassium [Moles/Vol] 4.0 mmol/L Normal 3.5-5.1 [facility] Comment on above: Performed By: #### F T4 #### [facility] [address] [address] [address] Benito Schwartz Sodium [Moles/Vol] 141 mmol/L Normal 136-145 [facility] Comment on above: Performed By: #### F T4 #### [facility] [address] [address] [address] Benito Schwartz Urea nitrogen [Mass/Vol] 51.0 mg/dL Critically high 7.0-18 .0 [facility] Comment on above: Performed By: #### F T4 #### [facility] [address] [place] [address] Dr. Benito Schwartz Urea nitrogen/Creatinine [Mass ratio] 22.2 mg/mg Normal [facility] Comment on above: Performed By: #### F T4 #### [facility] [address] [place] [address] Dr. Benito Schwartz TSHon 05-12-2022 TSH Qn m[IU]/L Critically low 0.358-3.740 [facility] Comment on above: Performed By: #### C BC #### [facility] [address] [place] [address] Dr. Benito Schwartz UA RANDOMon 05-12-2022 Bilirubin Ql (U) Negative Normal NEGATIVE [facility] Comment on above: Performed By: #### U RTPCR #### [facility] [address] [place] [address] Dr. Benito Schwartz Clarity (U) CLEAR Normal CLEAR [facility] Comment on above: Performed By: #### U RTPCR #### [facility] [address] [place] [address] Dr. Benito Schwartz Color (U) LT. YELLOW Normal YELLOW [facility] Comment on above: Performed By: #### U RTPCR #### [facility] [address] [place] [address] Dr. Benito Schwartz Glucose Ql (U) Negative Normal NEGATIVE [facility] Comment on above: Performed By: #### U RTPCR #### [facility] [address] [place] [address] Dr. Benito Schwartz Hemoglobin Ql (U) Negative Normal NEGATIVE [facility] Comment on above: Performed By: #### U RTPCR #### [facility] [address] [place] [address] Dr. Benito Schwartz Ketones Ql (U) Negative Normal NEGATIVE [facility] Comment on above: Performed By: #### U RTPCR #### [facility] [address] [place] [address] Dr. Benito Schwartz LEUKOCYTES Negative Normal NEGATIVE [facility] Comment on above: Performed By: #### U RTPCR #### [facility] [address] [place] [address] Dr. Benito Schwartz Nitrite Ql (U) Negative Normal NEGATIVE [facility] Comment on above: Performed By: #### U RTPCR #### [facility] [address] [place] [address] Dr. Benito Schwartz pH (U) 5.5 [pH] Normal 5-9 [facility] Comment on above: Performed By: #### U RTPCR #### [facility] [address] [place] [address] Dr. Benito Schwartz SPEC GRAVITY 1.010 Normal 1.005-<=1.0 25 [facility] Comment on above: Performed By: #### U RTPCR #### [facility] [address] [place] [address] Dr. Benito Schwartz UA PROTEIN Negative Normal NEGATIVE/ TRACE [facility] Comment on above: Performed By: #### U RTPCR #### [facility] [address] [place] [address] Dr. Benito Schwartz Urobilinogen Qn (U) 0.2 {Jagruti'U}/dL Normal 0.2 - 1. 0 [facility] Comment on above: Performed By: #### U RTPCR #### [facility] [address] [place] [address] Dr. Benito Schwartz URINE T PROTEIN CREAT RATIOo n 05-12-2022 Protein (U) [Mass/Vol] 18.3 mg/dL Critically high <=12.0 [facility] Comment on above: Performed By: #### U RTPCR #### [facility] [address] [place] [address] Dr. Benito Schwartz UR PROT CREAT RAT 0.39 Normal [address] [facility] Comment on above: Performed By: #### U RTPCR #### [facility] [address] [place] [address] Dr. Benito Schwartz URINE CREAT 47.44 mg/dL Normal 20.00-300.0 0 [facility] Comment on above: Performed By: #### U RTPCR #### [facility] [address] [place] [address] Dr. Benito Schwartz HEMOGLOBINon 05-10-2022 Hemoglobin (Bld) [Mass/Vol] 9.6 g/dL Critically low 14.0-18.0 [facility] Comment on above: Performed By: #### F T4, PSASC #### [facility] [address] [place] [address] Dr. Benito Schwartz NM THY SCAN W [...] by: JJ HI Date: 2022-04-28 09:05 Normal [facility] T3, TOTAL (TRIIODOTHYRONINE) on 04-09-2022 T3, TOTAL 167 ng/dL Normal 71-180 [facility] Comment on above: Performed By: #### B 12FOL, FETIBC #### [facility] [address] [place] [address] Dr. Benito Schwartz FREE T3on 04-08-2022 FREE T3 6.07 pg/mlL Critically high 2.18-3.98 [facility] Comment on above: Performed By: #### T SH, FT3, BMP #### [facility] [address] [place] [address] Dr. Benito Schwartz FREE T4on 04-08-2022 Free T4 [Mass/Vol] 2.62 ng/dL Critically high 0.76-1.46 [facility] Comment on above: Performed By: #### T SH, FT3, BMP #### [facility] [address] [place] [address] Dr. Benito Schwartz PROF CHEM 8 (BAS METB)on Anion gap [Moles/Vol] 13.5 mmol/L Normal [facility] Comment on above: Performed By: #### B 12FOL, FETIBC #### [facility] [address] [address] [address] Benito Schwartz Calcium [Mass/Vol] 9.9 mg/dL Normal 8.5-10.1 [facility] Comment on above: Performed By: #### B 12FOL, FETIBC #### [facility] [address] [address] [address] Benito Schwartz Chloride [Moles/Vol] 105 mmol/L Normal 98-107 [facility] Comment on above: Performed By: #### B 12FOL, FETIBC #### [facility] [address] [place] [address] Dr. Benito Schwartz CO2 [Moles/Vol] 26.5 mmol/L Normal 21.0-32.0 [facility] Comment on above: Performed By: #### B 12FOL, FETIBC #### [facility] [address] [place] [address] Dr. Benito Schwartz Creatinine [Mass/Vol] 2.33 mg/dL Critically high 0.70-1.30 [facility] Comment on above: Performed By: #### B 12FOL, FETIBC #### [facility] [address] [place] [address] Dr. Benito Schwartz EGFR-AF MACEDONIAN 33 mL/min/1.73m2 Critically low >=60 [facility] Comment on above: Performed By: #### B 12FOL, FETIBC #### [facility] [address] [place] [address] Dr. Benito Schwartz EGFR-NON AF MACEDONIAN 27 mL/min/1.73m2 Critically low >=60 [facility] Comment on above: Performed By: #### B 12FOL, FETIBC #### [facility] [address] [address] [address] Benito Schwartz Glucose [Mass/Vol] 104 mg/dL Normal 74-106 [facility] Comment on above: Performed By: #### B 12FOL, FETIBC #### [facility] [address] [address] [address] Benito Schwartz Potassium [Moles/Vol] 5.0 mmol/L Normal 3.5-5.1 [facility] Comment on above: Performed By: #### B 12FOL, FETIBC #### [facility] [address] [place] [address] Dr. Benito Schwartz Sodium [Moles/Vol] 140 mmol/L Normal 136-145 [facility] Comment on above: Performed By: #### B 12FOL, FETIBC #### [facility] [address] [place] [address] Dr. Benito Schwartz Urea nitrogen [Mass/Vol] 60.0 mg/dL Critically high 7.0-18 .0 [facility] Comment on above: Performed By: #### B 12FOL, FETIBC #### [facility] [address] [place] [address] Dr. Benito Schwartz Urea nitrogen/Creatinine [Mass ratio] 25.8 mg/mg Normal [facility] Comment on above: Performed By: #### B 12FOL, FETIBC #### [facility] [address] [place] [address] Dr. Benito Schwartz TSHon 04-08-2021 TSH Qn m[IU]/L Critically low 0.358-3.740 [facility] Comment on above: Performed By: #### T SH, FT3, BMP #### [facility] [address] [place] [address] Dr. Benito Schwartz BASIC METABOLIC PANELon - Calcium [Mass/Vol] 9.1 mg/dL Normal 8.6-10.3 [facility] Comment on above: Order Comment: No: D o not add to previous draw Performed By: #### 1 0070, [id number] #### [facility] [address] [place] [address], [place] Chloride [Moles/Vol] 106 mmol/L Normal 98-107 [facility] Comment on above: Order Comment: No: D o not add to previous draw Performed By: #### 1 69, [id number] #### [facility] [address] [place] [address], [place] CO2 [Moles/Vol] 25 mmol/L Normal 21-31 [facility] Comment on above: Order Comment: No: D o not add to previous draw Performed By: #### 1 69, [id number] #### [facility] [address] [place] [address], [place] Creatinine [Mass/Vol] 2.12 mg/dL High 0.70-1.30 [facility] Comment on above: Order Comment: No: D o not add to previous draw Performed By: #### 1 69, [id number] #### [facility] [address] [place] [address], [facility] eGFR- 37 ml/min/1.73sq m Abnormal >60 [facility] Comment on above: Order Comment: No: D o not add to previous draw Result Comment: Calc ulation may not be valid for patients over 70 years Performed By: #### 1 69, 16748 #### [facility] [address] [place] [address], [place] eGFR- non- 30 ml/min/1.73sq m Abnormal >60 [facility] Comment on above: Order Comment: No: D o not add to previous draw Result Comment: Calc ulation may not be valid for patients over 70 years Performed By: #### 1 69, [id number] #### [facility] [address] [place] [address], [place] Glucose [Mass/Vol] 93 mg/dL Normal 70-100 [facility] Comment on above: Order Comment: No: D o not add to previous draw Performed By: #### 1 69, 35983 #### [facility] [address] [place] [address], [place] Potassium [Moles/Vol] 3.9 mmol/L Normal 3.5-5.1 [facility] Comment on above: Order Comment: No: D o not add to previous draw Performed By: #### 1 69, [id number] #### [facility] [address] [place] [address], [facility] Sodium [Moles/Vol] 141 mmol/L Normal 136-145 [facility] Comment on above: Order Comment: No: D o not add to previous draw Performed By: #### 1 69, 22306 #### [facility] [address] [place] [address], [facility] Urea nitrogen [Mass/Vol] 56 mg/dL High 7-25 [facility] Comment on above: Order Comment: No: D o not add to previous draw Performed By: #### 1 69, 48439 #### [facility] [address] [place] [address], [facility] CBC COMPLETE BLOOD COUNTon 0 - Erythrocyte distribution width (RBC) [Ratio] 13.6 % Normal 11.5-15.0 [facility] Comment on above: Order Comment: No: D o not add to previous draw Performed By: #### 5 3 #### [facility] [address] [place] [address], [facility] Hematocrit (Bld) [Volume fraction] 26.2 % Low 39.0-50.0 [facility] Comment on above: Order Comment: No: D o not add to previous draw Performed By: #### 5 3 #### [facility] [address] [place] [address], [place] Hemoglobin (Bld) [Mass/Vol] 8.7 g/dL Low 13.0-17.0 [facility] Comment on above: Order Comment: No: D o not add to previous draw Performed By: #### 5 3 #### [facility] [address] [place] [address], [place] MCH (RBC) [Entitic mass] 29.3 pg Normal 27.0-33.0 [facility] Comment on above: Order Comment: No: D o not add to previous draw Performed By: #### 5 0103 #### [facility] [address] [place] [id number], [facility] MCHC (RBC) [Mass/Vol] 33.2 g/dL Normal 32.0-35.0 [facility] Comment on above: Order Comment: No: D o not add to previous draw Performed By: #### 5 0103 #### [facility] [address] [place] [address], [facility] MCV (RBC) [Entitic vol] 88.2 fL Normal 82.0-98.0 T mela [facility] Comment on above: Order Comment: No: D o not add to previous draw Performed By: #### 5 0103 #### [facility] [address] [place] [id number], [facility] Nucleated RBC/100 WBC (Bld) [Ratio] 0 % Normal 0-0 [facility] Comment on above: Order Comment: No: D o not add to previous draw Performed By: #### 5 0103 #### [facility] [address] [place] [address], [place] PLAT CNT 190 10*3/uL Normal 150-400 [facility] Comment on above: Order Comment: No: D o not add to previous draw Performed By: #### 5 0103 #### [facility] [address] [place] [address], [facility] RBC (Bld) [#/Vol] 2.97 10*6/uL Low 4.20-5.70 [facility] Comment on above: Order Comment: No: D o not add to previous draw Performed By: #### 5 0103 #### [facility] [address] [place] [address], [facility] WBC (Bld) [#/Vol] 5.20 10*3/uL Normal 4.00-10.60 [facility] Comment on above: Order Comment: No: D o not add to previous draw Performed By: #### 5 0103 #### [facility] [address] [place] [address], [facility] MAGNESIUM BLOODon 04-02-2022 Magnesium [Mass/Vol] 2.2 mg/dL Normal 1.9-2.7 [facility] Comment on above: Order Comment: No: D o not add to previous draw Performed By: #### 1 0070, 19457 #### [facility] [address] [place] [address], [facility] POC GLUCOSE LABon 04-02-2022 Glucose [Mass/Vol] 99 mg/dL Normal 70-100 [facility] Comment on above: Performed By: #### 5 0608 #### [facility] [address] [place] [address], [facility] BASIC METABOLIC PANELon 03-16 Calcium [Mass/Vol] 9.1 mg/dL Normal 8.6-10.3 [facility] Comment on above: Order Comment: No: D o not add to previous draw Performed By: #### 5 0608 #### [facility] [address] [place] [address], [place] Chloride [Moles/Vol] 106 mmol/L Normal 98-107 [facility] Comment on above: Order Comment: No: D o not add to previous draw Performed By: #### 5 0608 #### [facility] [address] [place] [address], [place] CO2 [Moles/Vol] 25 mmol/L Normal 21-31 [facility] Comment on above: Order Comment: No: D o not add to previous draw Performed By: #### 5 0608 #### [facility] [address] [place] [address], [place] Creatinine [Mass/Vol] 2.07 mg/dL High 0.70-1.30 [facility] Comment on above: Order Comment: No: D o not add to previous draw Performed By: #### 5 0608 #### [facility] [address] [place] [address], [facility] eGFR- 38 ml/min/1.73sq m Abnormal >60 [facility] Comment on above: Order Comment: No: D o not add to previous draw Result Comment: Calc ulation may not be valid for patients over 70 years Performed By: #### 5 0608 #### [facility] [address] [place] [address], [facility] eGFR- non- 31 ml/min/1.73sq m Abnormal >60 [facility] Comment on above: Order Comment: No: D o not add to previous draw Result Comment: Calc ulation may not be valid for patients over 70 years Performed By: #### 5 0608 #### [facility] [address] [place] [address], [place] Glucose [Mass/Vol] 94 mg/dL Normal 70-100 [facility] Comment on above: Order Comment: No: D o not add to previous draw Performed By: #### 5 0608 #### [facility] [address] [place] [address], [place] Potassium [Moles/Vol] 3.9 mmol/L Normal 3.5-5.1 [facility] Comment on above: Order Comment: No: D o not add to previous draw Performed By: #### 5 0608 #### [facility] [address] [place] [address], [place] Sodium [Moles/Vol] 144 mmol/L Normal 136-145 [facility] Comment on above: Order Comment: No: D o not add to previous draw Performed By: #### 5 0608 #### [facility] [address] [place] [address], [place] Urea nitrogen [Mass/Vol] 54 mg/dL High 7-25 [facility] Comment on above: Order Comment: No: D o not add to previous draw Performed By: #### 5 0608 #### [facility] [address] [facility] [place] [address], [facility] CBC COMPLETE BLOOD COUNTon 0 04-01-2022 Erythrocyte distribution width (RBC) [Ratio] 13.5 % Normal 11.5-15.0 [facility] Comment on above: Order Comment: No: D o not add to previous draw Performed By: #### 5 0608 #### [facility] [address] [place] [id number], [facility] Hematocrit (Bld) [Volume fraction] 27.5 % Low 39.0-50.0 [facility] Comment on above: Order Comment: No: D o not add to previous draw Performed By: #### 5 0608 #### [facility] [address] [place] [address], [facility] Hemoglobin (Bld) [Mass/Vol] 8.9 g/dL Low 13.0-17.0 [facility] Comment on above: Order Comment: No: D o not add to previous draw Performed By: #### 5 0608 #### [facility] [address] [place] [address], [facility] MCH (RBC) [Entitic mass] 29.2 pg Normal 27.0-33.0 [facility] Comment on above: Order Comment: No: D o not add to previous draw Performed By: #### 5 0608 #### [facility] [address] [place] [address], [facility] MCHC (RBC) [Mass/Vol] 32.4 g/dL Normal 32.0-35.0 [facility] Comment on above: Order Comment: No: D o not add to previous draw Performed By: #### 5 0608 #### [facility] [address] [place] [address], [facility] MCV (RBC) [Entitic vol] 90.2 fL Normal 82.0-98.0 T he [facility] Comment on above: Order Comment: No: D o not add to previous draw Performed By: #### 5 0608 #### [facility] [address] [place] [address], [facility] Nucleated RBC/100 WBC (Bld) [Ratio] 0 % Normal 0-0 The [facility] Comment on above: Order Comment: No: D o not add to previous draw Performed By: #### 5 0608 #### [facility] [address] [facility] [place] [address], [facility] PLAT CNT 213 10*3/uL Normal 150-400 The [facility] Comment on above: Order Comment: No: D o not add to previous draw Performed By: #### 5 0608 #### [facility] [address] [facility] [place] [address], [facility] RBC (Bld) [#/Vol] 3.05 10*6/uL Low 4.20-5.70 The [facility] Comment on above: Order Comment: No: D o not add to previous draw Performed By: #### 5 0608 #### [facility] [address] [facility] [place] [address], [facility] WBC (Bld) [#/Vol] 6.02 10*3/uL Normal 4.00-10.60 The [facility] Comment on above: Order Comment: No: D o not add to previous draw Performed By: #### 5 0608 #### [facility] [address] Cardiovascular Lab Reporton 04-01-2022 Cardiovascular Lab Report [facility] Patient Name: [facility] MR #: [id number] Physician: Sriram Rick, Department of M.D. Medicine Service Date: 03/31/2022 Division of Birthdate: 1940 Cardiology Room #: [id number] Adult Cardiovascular Services [facility] [place] [address] Cardiovascular Laboratory Report FINAL IMPRESSIONS: 1. Moderately [...] right internal jugular vein was obtained. A 6-Lao 11 cm sheath was inserted without difficulty. [...] P Sriram Rick M.D. Date Dict: 03/31/2022/02:33 Zev Rick M.D. Date Trans: 04/01/2022 02:03 Jay Jay/hans [id number] cc: Yas Linda D.O. [address] [place] [id number] Normal The [facility] HEMOGLOBIN A1Con 04-01-2022 Glucose [Moles/Vol] 137 mmol/L Normal The [facility] Comment on above: Order Comment: If no t done in EDNo: Do not add to previous draw Performed By: #### 5 0103 #### [facility] [address] [place] [address], [facility] HbA1c (Bld) [Mass fraction] 6.4 % High 4.0-6.0 The [facility] Comment on above: Order Comment: If no t done in EDNo: Do not add to previous draw Performed By: #### 5 0103 #### [facility] [address] [place] [address], [place] MAGNESIUM BLOODon 04-01-2022 Magnesium [Mass/Vol] 2.2 mg/dL Normal 1.9-2.7 The [facility] Comment on above: Order Comment: No: D o not add to previous draw Performed By: #### 5 0608 #### [facility] [address] [place] [address], [place] POC GLUCOSE LABon 04-01-2022 Glucose [Mass/Vol] 114 mg/dL High 70-100 The [facility] Comment on above: Performed By: #### 5 0103 #### [facility] [address] [place] [address], [place] Glucose [Mass/Vol] 117 mg/dL High 70-100 The [facility] Comment on above: Performed By: #### 5 0608 #### [facility] [address] [place] [address], [place] Glucose [Mass/Vol] 139 mg/dL High 70-100 The [facility] Comment on above: Performed By: #### 5 0608 #### [facility] [address] [place] [address], [place] Glucose [Mass/Vol] 98 mg/dL Normal 70-100 The [facility] Comment on above: Performed By: #### 5 0608 #### [facility] [address] [place] [address], [facility] BASIC METABOLIC PANELon 06-10 21-2021 Calcium [Mass/Vol] 9.1 mg/dL Normal 8.6-10.3 The [facility] Comment on above: Order Comment: No: D o not add to previous draw Performed By: #### 4 4396, 02335, 89488, 10895, 27847 #### [facility] [address] [place] [address], [place] Chloride [Moles/Vol] 104 mmol/L Normal 98-107 The [facility] Comment on above: Order Comment: No: D o not add to previous draw Performed By: #### 4 4396, 75920, 62659, 96450, 56690 #### [facility] [address] [place] [address], [place] CO2 [Moles/Vol] 27 mmol/L Normal 21-31 The [facility] Comment on above: Order Comment: No: D o not add to previous draw Performed By: #### 4 4396, 04745, 07224, 81583, 52368 #### [facility] [address] [place] [address], [place] Creatinine [Mass/Vol] 2.59 mg/dL High 0.70-1.30 The [facility] Comment on above: Order Comment: No: D o not add to previous draw Performed By: #### 4 4396, 74111, 83823, 58783, 69298 #### [facility] [address] [place] [address], [place] eGFR- 29 ml/min/1.73sq m Abnormal >60 The [facility] Comment on above: Order Comment: No: D o not add to previous draw Result Comment: Calc ulation may not be valid for patients over 70 years Performed By: #### 4 4396, 47345, 74306, 71876, 97728 #### [facility] [address] [place] [address], [place] eGFR- non- 24 ml/min/1.73sq m Abnormal >60 The [facility] Comment on above: Order Comment: No: D o not add to previous draw Result Comment: Calc ulation may not be valid for patients over 70 years Performed By: #### 4 4396, 59111, 93113, 40871, 08891 #### [facility] [address] [place] [address], [place] Glucose [Mass/Vol] 90 mg/dL Normal 70-100 The [facility] Comment on above: Order Comment: No: D o not add to previous draw Performed By: #### 4 4396, 95562, 53935, 97300, 53958 #### [facility] [address] [place] [address], [place] Potassium [Moles/Vol] 4.2 mmol/L Normal 3.5-5.1 The [facility] Comment on above: Order Comment: No: D o not add to previous draw Performed By: #### 4 4396, 04573, 51987, 65555, 78726 #### [facility] [address] [place] [address], [place] Sodium [Moles/Vol] 141 mmol/L Normal 136-145 The [facility] Comment on above: Order Comment: No: D o not add to previous draw Performed By: #### 4 4396, 83292, 46913, 14139, 60421 #### [facility] [address] [place] [address], [place] Urea nitrogen [Mass/Vol] 55 mg/dL High 7-25 The [facility] Comment on above: Order Comment: No: D o not add to previous draw Performed By: #### 4 4396, 59900, 15195, 53888, 65397 #### [facility] [address] [place] [address], [facility] CBC COMPLETE BLOOD COUNTon 0 - Erythrocyte distribution width (RBC) [Ratio] 13.6 % Normal 11.5-15.0 The [facility] Comment on above: Order Comment: No: D o not add to previous draw Performed By: #### 5 0608 #### [facility] [address] [place] [id number], [facility] Hematocrit (Bld) [Volume fraction] 27.1 % Low 39.0-50.0 The [facility] Comment on above: Order Comment: No: D o not add to previous draw Performed By: #### 5 0608 #### [facility] [address] [place] [id number], [facility] Hemoglobin (Bld) [Mass/Vol] 8.7 g/dL Low 13.0-17.0 The [facility] Comment on above: Order Comment: No: D o not add to previous draw Performed By: #### 5 0608 #### [facility] [address] [place] [address], [facility] MCH (RBC) [Entitic mass] 28.8 pg Normal 27.0-33.0 The [facility] Comment on above: Order Comment: No: D o not add to previous draw Performed By: #### 5 0608 #### [facility] [address] [place] [address], [place] MCHC (RBC) [Mass/Vol] 32.1 g/dL Normal 32.0-35.0 The [facility] Comment on above: Order Comment: No: D o not add to previous draw Performed By: #### 5 0608 #### [facility] [address] [place] [id number], [facility] MCV (RBC) [Entitic vol] 89.7 fL Normal 82.0-98.0 T he [facility] Comment on above: Order Comment: No: D o not add to previous draw Performed By: #### 5 0608 #### [facility] [address] [place] [address], [facility] Nucleated RBC/100 WBC (Bld) [Ratio] 0 % Normal 0-0 The [facility] Comment on above: Order Comment: No: D o not add to previous draw Performed By: #### 5 0608 #### [facility] [address] [place] [address], [facility] PLAT CNT 184 10*3/uL Normal 150-400 The [facility] Comment on above: Order Comment: No: D o not add to previous draw Performed By: #### 5 0608 #### [facility] [address] [place] [address], [facility] RBC (Bld) [#/Vol] 3.02 10*6/uL Low 4.20-5.70 The [facility] Comment on above: Order Comment: No: D o not add to previous draw Performed By: #### 5 0608 #### [facility] [address] [place] [address], [facility] WBC (Bld) [#/Vol] 5.93 10*3/uL Normal 4.00-10.60 The [facility] Comment on above: Order Comment: No: D o not add to previous draw Performed By: #### 5 0608 #### [facility] [address] [place] [id number], [facility] FREE T4on 03-31-2022 Free T4 [Mass/Vol] 4.55 ng/dL High 0.71-1.85 The [facility] Comment on above: Performed By: #### 5 0103 #### [facility] [address] [place] [id number], [facility] MAGNESIUM BLOODon 03-31-2022 Magnesium [Mass/Vol] 2.3 mg/dL Normal 1.9-2.7 The [facility] Comment on above: Order Comment: No: D o not add to previous draw Performed By: #### 4 4396, 40660, 92041, 47005, 43341 #### [facility] [address] [place] [address], [facility] PHOSPHORUS BLOODon 2 Phosphate [Mass/Vol] 5.4 mg/dL High 2.5-5.0 The [facility] Comment on above: Order Comment: No: D o not add to previous draw Performed By: #### 4 4396, 60204, 30118, 62855, 44583 #### [facility] [address] [place] [address], [facility] POC GLUCOSE LABon 03-31-2022 Glucose [Mass/Vol] 161 mg/dL High 70-100 The [facility] Comment on above: Performed By: #### 5 0608 #### [facility] [address] [place] [address], [facility] Glucose [Mass/Vol] 108 mg/dL High 70-100 The [facility] Comment on above: Performed By: #### 5 0608 #### [facility] [address] POC SARS COV2 ANTIGEN NEGATI VEon 03-31-2022 POC SARS COV2 ANTIGEN NEG Negative Normal NEGATIVE The [facility] Comment on above: Result Comment: Nega tive [...] antigen from SARS-CoV-2 in direct nasopharyngeal swab ([employer]) specimens from individuals who are suspected [...] Accreditation. Performed By: #### 5 0103 #### [facility] [address] [place] [address], [facility] TSH3on 03-31-2022 TSH 3RD GENERATION <0.01 Critically low 0.34-5.60 Th e [facility] Comment on above: Performed By: #### 4 4396, 42822, 90479, 52311, 90419 #### [facility] [address] [place] [address], [facility] BASIC METABOLIC PANELon 03-16 Calcium [Mass/Vol] 9.8 mg/dL Normal 8.6-10.3 The [facility] Comment on above: Order Comment: No: D o not add to previous draw Performed By: #### 5 0103 #### [facility] [address] [place] [address], [facility] Chloride [Moles/Vol] 103 mmol/L Normal 98-107 The [facility] Comment on above: Order Comment: No: D o not add to previous draw Performed By: #### 5 0103 #### [facility] [address] [place] [address], [facility] CO2 [Moles/Vol] 29 mmol/L Normal 21-31 The [facility] Comment on above: Order Comment: No: D o not add to previous draw Performed By: #### 5 0103 #### [facility] [address] [place] [address], [facility] Creatinine [Mass/Vol] 2.60 mg/dL High 0.70-1.30 The [facility] Comment on above: Order Comment: No: D o not add to previous draw Performed By: #### 5 0103 #### [facility] [address] [place] [address], [facility] eGFR- 29 ml/min/1.73sq m Abnormal >60 The [facility] Comment on above: Order Comment: No: D o not add to previous draw Result Comment: Calc ulation may not be valid for patients over 70 years Performed By: #### 5 0103 #### [facility] [address] [place] [address], [facility] eGFR- non- 24 ml/min/1.73sq m Abnormal >60 The [facility] Comment on above: Order Comment: No: D o not add to previous draw Result Comment: Calc ulation may not be valid for patients over 70 years Performed By: #### 5 0103 #### [facility] [address] [place] [address], [place] Glucose [Mass/Vol] 109 mg/dL High 70-100 The [facility] Comment on above: Order Comment: No: D o not add to previous draw Performed By: #### 5 0103 #### [facility] [address] [place] [address], [place] Potassium [Moles/Vol] 4.0 mmol/L Normal 3.5-5.1 The [facility] Comment on above: Order Comment: No: D o not add to previous draw Performed By: #### 5 0103 #### [facility] [address] [place] [address], [place] Sodium [Moles/Vol] 141 mmol/L Normal 136-145 The [facility] Comment on above: Order Comment: No: D o not add to previous draw Performed By: #### 5 0103 #### [facility] [address] [place] [address], [place] Urea nitrogen [Mass/Vol] 55 mg/dL High 7-25 The [facility] Comment on above: Order Comment: No: D o not add to previous draw Performed By: #### 5 0103 #### [facility] [address] CBC W/DIFFon 03-30-2022 ABS IMM GRANS 0.0 10*3/uL Normal 0.0-0.2 The [facility] Comment on above: Performed By: #### 5 0103 #### [facility] [address] ABS NEUTROPHILS 4.1 10*3/uL Normal 1.6-7.6 The [facility] Comment on above: Performed By: #### 5 0103 #### [facility] [address] Basophils (Bld) [#/Vol] 0.0 10*3/uL Normal 0.0-0.2 The [facility] Comment on above: Performed By: #### 5 0103 #### [facility] [address] [place] [address], [facility] Basophils/100 WBC (Bld) 0.3 % Normal 0.0-1.0 T mela [facility] Comment on above: Performed By: #### 5 0103 #### [facility] [address] [facility] [place] [address], [facility] Eosinophils (Bld) [#/Vol] 0.3 10*3/uL Normal 0.0-0.5 The [facility] Comment on above: Performed By: #### 5 0103 #### [facility] [address] [place] [address], [facility] Eosinophils/100 WBC (Bld) 5.3 % Normal 0.0-6.0 The [facility] Comment on above: Performed By: #### 5 3 #### [facility] [address] [place] [address], [facility] Erythrocyte distribution width (RBC) [Ratio] 13.7 % Normal 11.5-15.0 The [facility] Comment on above: Performed By: #### 5 0103 #### [facility] [address] [facility] [address], [facility] Hematocrit (Bld) [Volume fraction] 30.2 % Low 39.0-50.0 The [facility] Comment on above: Performed By: #### 5 0103 #### [facility] [address] [facility] Hemoglobin (Bld) [Mass/Vol] 9.8 g/dL Low 13.0-17.0 The [facility] Comment on above: Performed By: #### 5 3 #### [facility] [address] [facility] IMMATURE GRANS 0.3 % Normal 0.0-1.0 The [facility] Comment on above: Performed By: #### 5 0103 #### [facility] [address] [facility] Lymphocytes (Bld) [#/Vol] 1.1 10*3/uL Low 1.2-4.0 The [facility] Comment on above: Performed By: #### 5 3 #### [facility] [address] [facility] [place] [address], [facility] Lymphocytes/100 WBC (Bld) 17.9 % Low 20.0-45.0 The [facility] Comment on above: Performed By: #### 5 3 #### [facility] [address] [facility] [place] [address], [facility] MCH (RBC) [Entitic mass] 29.3 pg Normal 27.0-33.0 The [facility] Comment on above: Performed By: #### 5 3 #### [facility] [address] [facility] [address], [facility] MCHC (RBC) [Mass/Vol] 32.5 g/dL Normal 32.0-35.0 The [facility] Comment on above: Performed By: #### 5 0103 #### [facility] [address] [facility] MCV (RBC) [Entitic vol] 90.4 fL Normal 82.0-98.0 T he [facility] Comment on above: Performed By: #### 5 0103 #### [facility] [address] [place] [address], [facility] Monocytes (Bld) [#/Vol] 0.7 10*3/uL Normal 0.1-1.0 The [facility] Comment on above: Performed By: #### 5 0103 #### [facility] [address] [facility] [place] [address], [facility] MONOS 11.6 % Normal 5.0-12.0 The [facility] Comment on above: Performed By: #### 5 0103 #### [facility] [address] Neutrophils/100 WBC (Bld) 64.6 % Normal 40.0-72.0 The [facility] Comment on above: Performed By: #### 5 3 #### [facility] [address] [place] [address], [facility] Nucleated RBC/100 WBC (Bld) [Ratio] 0 % Normal 0-0 The [facility] Comment on above: Performed By: #### 5 0103 #### [facility] [address] [facility] [place] [address], [facility] PLAT CNT 215 10*3/uL Normal 150-400 The [facility] Comment on above: Performed By: #### 5 3 #### [facility] [address] [place] [address], [facility] RBC (Bld) [#/Vol] 3.34 10*6/uL Low 4.20-5.70 The [facility] Comment on above: Performed By: #### 5 0103 #### [facility] [address] [facility] [address], [facility] WBC (Bld) [#/Vol] 6.38 10*3/uL Normal 4.00-10.60 The [facility] Comment on above: Performed By: #### 5 0103 #### [facility] [address] [facility] MAGNESIUM BLOODon 03-30-2022 Magnesium [Mass/Vol] 2.3 mg/dL Normal 1.9-2.7 The [facility] Comment on above: Order Comment: No: D o not add to previous draw Performed By: #### 5 0103 #### [facility] [address] TROPONIN-Ion 03-30-2022 Troponin I.cardiac [Mass/Vol] 0.04 ng/mL Normal 0.00-0.04 The [facility] Comment on above: Order Comment: No: D o not add to previous draw Result Comment: REFE RENCE RANGES: 0.00 - 0.04 ng/ml NORMAL 0.05 - 0.50 ng/ml INDETERMINATE > 0.50 ng/ml CONSISTENT WITH AN M.I. Performed By: #### 5 0103 #### [facility] [address] BNPon 03-25-2022 Natriuretic peptide B (Bld) [Mass/Vol] 7410.0 pg/mL Critically high <=1,800.0 [facility] Comment on above: Performed By: #### F T4 #### [facility] [address] [place] [address] Dr. Benito Schwarzt PROF CHEM 8 (BAS METB)on Anion gap [Moles/Vol] 14.5 mmol/L Normal [facility] Comment on above: Performed By: #### F T4 #### [facility] [address] [place] [address] Dr. Benito Schwartz Calcium [Mass/Vol] 9.6 mg/dL Normal 8.5-10.1 [facility] Comment on above: Performed By: #### F T4 #### [facility] [address] [place] [address] [address] Benito Schwartz Chloride [Moles/Vol] 105 mmol/L Normal 98-107 [facility] Comment on above: Performed By: #### F T4 #### [facility] [address] [place] [address] Dr. Benito Schwartz CO2 [Moles/Vol] 27.6 mmol/L Normal 21.0-32.0 [facility] Comment on above: Performed By: #### F T4 #### [facility] [address] [place] [address] Dr. Benito Schwartz Creatinine [Mass/Vol] 2.48 mg/dL Critically high 0.70-1.30 [facility] Comment on above: Performed By: #### F T4 #### [facility] [address] [place] [address] Dr. Benito Schwartz EGFR-AF MACEDONIAN 31 mL/min/1.73m2 Critically low >=60 [facility] Comment on above: Performed By: #### F T4 #### [facility] [address] [place] [address] Dr. Benito Schwartz EGFR-NON AF MACEDONIAN 25 mL/min/1.73m2 Critically low >=60 [facility] Comment on above: Performed By: #### F T4 #### [facility] [address] [place] [address] Dr. Benito Schwartz Glucose [Mass/Vol] 116 mg/dL Critically high 74-106 [facility] Comment on above: Performed By: #### F T4 #### [facility] [address] [place] [address] Dr. Benito Schwartz Potassium [Moles/Vol] 4.1 mmol/L Normal 3.5-5.1 [facility] Comment on above: Performed By: #### F T4 #### [facility] [address] [place] [address] Dr. Benito Schwartz Sodium [Moles/Vol] 143 mmol/L Normal 136-145 [facility] Comment on above: Performed By: #### F T4 #### [facility] [address] [place] [address] Dr. Benito Schwartz Urea nitrogen [Mass/Vol] 56.0 mg/dL Critically high 7.0-18 .0 [facility] Comment on above: Performed By: #### F T4 #### [facility] [address] [place] [address] Dr. Benito Schwartz Urea nitrogen/Creatinine [Mass ratio] 22.6 mg/mg Normal [facility] Comment on above: Performed By: #### F T4 #### [facility] [address] [place] [address] Dr. Benito Schwartz CBC AUTO DIFFon 03-07-2022 BASO # 0.0 103/ul Normal 0.0-0.1 [facility] Comment on above: Performed By: #### V ITAD #### [facility] [address] [place] [address] Dr. Benito Schwartz Basophils/100 WBC (Bld) 0.3 % Normal 0.2-2.0 [facility] Comment on above: Performed By: #### V ITAD #### [facility] [address] [place] [address] Dr. Benito Schwartz EO # 0.1 103/ul Normal 0.0-0.7 [facility] Comment on above: Performed By: #### V ITAD #### [facility] [address] [place] [address] Dr. Benito Schwartz Eosinophils/100 WBC (Bld) 2.4 % Normal 0.9-7.0 [facility] Comment on above: Performed By: #### V ITAD #### [facility] [address] [place] [address] Dr. Benito Schwartz Erythrocyte distribution width (RBC) [Ratio] 13.4 % Normal 11.0-15.0 [facility] Comment on above: Performed By: #### V ITAD #### [facility] [address] [place] [address] Dr. Benito Schwartz Hematocrit (Bld) [Volume fraction] 27.7 % Critically low 42.0-54.0 [facility] Comment on above: Performed By: #### V ITAD #### [facility] [address] [place] [address] Dr. Benito Schwartz Hemoglobin (Bld) [Mass/Vol] 8.8 g/dL Critically low 14.0-18.0 [facility] Comment on above: Performed By: #### V ITAD #### [facility] [address] [place] [address] Dr. Benito Schwartz IG # 0.02 10e3/ul Normal 0.00-0.03 [facility] Comment on above: Performed By: #### V ITAD #### [facility] [address] [place] [address] Dr. Benito Schwartz IG % 0.3 % Normal 0.0-0.5 [facility] Comment on above: Performed By: #### V ITAD #### [facility] [address] [place] [address] Dr. Benito Schwartz LYMPH # 1.1 103/ul Critically low 1.2-3.8 [facility] Comment on above: Performed By: #### V ITAD #### [facility] [address] [place] [address] Dr. Benito Schwartz Lymphocytes/100 WBC (Bld) 17.9 % Critically low 20.5-6 0.0 [facility] Comment on above: Performed By: #### V ITAD #### [facility] [address] [place] [address] Dr. Benito Schwartz MANUAL DIFF REQ NO Normal [facility] Comment on above: Performed By: #### V ITAD #### [facility] [address] [place] [address] Dr. Benito Schwartz MCH (RBC) [Entitic mass] 29.0 pg Normal 25.9-34.0 [facility] Comment on above: Performed By: #### V ITAD #### [facility] [address] [place] [address] Dr. Benito Schwartz MCHC (RBC) [Mass/Vol] 31.8 g/dL Normal 29.9-35.2 [facility] Comment on above: Performed By: #### V ITAD #### [facility] [address] [place] [address] Dr. Benito Schwartz MCV (RBC) [Entitic vol] 91.4 fL Normal 80.0-94.0 [facility] Comment on above: Performed By: #### V ITAD #### [facility] [address] [place] [address] Dr. Benito Schwartz MONO # 0.9 103/ul Critically high 0.3-0.8 [facility] Comment on above: Performed By: #### V ITAD #### [facility] [address] [place] [address] Dr. Benito Schwartz Monocytes/100 WBC (Bld) 15.3 % Critically high 1.7-12. 0 [facility] Comment on above: Performed By: #### V ITAD #### [facility] [address] [place] [address] Dr. Benito Schwartz NEUT # 3.7 103/ul Normal 1.4-6.5 [facility] Comment on above: Performed By: #### V ITAD #### [facility] [address] [place] [address] Dr. Benito Schwartz Neutrophils/100 WBC (Bld) 63.8 % Normal 43.0-75.0 [facility] Comment on above: Performed By: #### V ITAD #### [facility] [address] [place] [address] Dr. Benito Schwartz Platelet mean volume (Bld) [Entitic vol] 9.8 fL Normal 9.5-13.5 [facility] Comment on above: Performed By: #### V ITAD #### [facility] [address] [place] [address] Dr. Benito Schwartz PLT 212 103/ul Normal 150-450 [facility] Comment on above: Performed By: #### V ITAD #### [facility] [address] [place], [place] [id number] Dr. Benito Schwartz RBC 3.03 106/ul Critically low 4.70-6.10 [facility] Comment on above: Performed By: #### V ITAD #### [facility] [address] [address] [address] Benito Schwartz WBC 5.9 103/ul Normal 4.0-11.0 [facility] Comment on above: Performed By: #### V ITAD #### [facility] [address] [id number] Benito Schwartz ECHOCARDIO M/2D COMPLETEon 0 03-07-2022 ECHOCARDIO M/2D COMPLETE Patient: DELANO REN Exam Date: 03/07/2022 : 1940 Gender:M Ordering : DR RUPINDER GRIGSBY . Admission #: [id number] Family : DR YAS LINDA D.O. Order #: [id number] CLICK HERE TO VIEW EXAM ECHOCARDIOGRAM REPORT [...] Area(A4C): 23.30 cm2 Left Atrium Systolic Volume(A2C): 53163 mm3 Left Atrium Systolic Volume(A4C): 35715 mm3 Mitral Valve MV E to A [...] M.D. on 03/08/2022 at 11:16 Normal [facility] O[facility] BLD IMMUNO SCREENon 05- OCCULT BLOOD Negative Normal NEGATIVE [facility] Comment on above: Performed By: #### V ITAD #### [facility] [address] [place] [address] Dr. Benito Schwartz POINT OF CARE GLUCOSEon 02-14 Glucose [Mass/Vol] 124 mg/dL Critically high 74-106 [facility] Comment on above: Performed By: #### B 12FOL, FETIBC #### [facility] [address] [place] [address] Dr. Benito Schwartz PROF CHEM 8 (BAS METB)on Anion gap [Moles/Vol] 13.1 mmol/L Normal [facility] Comment on above: Performed By: #### B 12FOL, FETIBC #### [facility] [address] [place] [address] Dr. Benito Schwartz Calcium [Mass/Vol] 9.2 mg/dL Normal 8.5-10.1 [facility] Comment on above: Performed By: #### B 12FOL, FETIBC #### [facility] [address] [address] [address] Benito Schwartz Chloride [Moles/Vol] 105 mmol/L Normal 98-107 [facility] Comment on above: Performed By: #### B 12FOL, FETIBC #### [facility] [address] [place] [address] Dr. Benito Schwartz CO2 [Moles/Vol] 28.6 mmol/L Normal 21.0-32.0 [facility] Comment on above: Performed By: #### B 12FOL, FETIBC #### [facility] [address] [place] [address] Dr. Benito Schwartz Creatinine [Mass/Vol] 2.22 mg/dL Critically high 0.70-1.30 [facility] Comment on above: Performed By: #### B 12FOL, FETIBC #### [facility] [address] [place] [address] Dr. Benito Schwartz EGFR-AF MACEDONIAN 35 mL/min/1.73m2 Critically low >=60 [facility] Comment on above: Performed By: #### B 12FOL, FETIBC #### [facility] [address] [address] [address] Benito Schwartz EGFR-NON AF MACEDONIAN 29 mL/min/1.73m2 Critically low >=60 [facility] Comment on above: Performed By: #### B 12FOL, FETIBC #### [facility] [address] [address] [address] Benito Schwartz Glucose [Mass/Vol] 110 mg/dL Critically high 74-106 [facility] Comment on above: Performed By: #### B 12FOL, FETIBC #### [facility] [address] [address] [address] Benito Schwartz Potassium [Moles/Vol] 3.7 mmol/L Normal 3.5-5.1 [facility] Comment on above: Performed By: #### B 12FOL, FETIBC #### [facility] [address] [place] [address] Dr. Benito Schwartz Sodium [Moles/Vol] 143 mmol/L Normal 136-145 [facility] Comment on above: Performed By: #### B 12FOL, FETIBC #### [facility] [address] [address] [address] Benito Schwartz Urea nitrogen [Mass/Vol] 66.0 mg/dL Critically high 7.0-18 .0 [facility] Comment on above: Performed By: #### B 12FOL, FETIBC #### [facility] [address] [address] [address] Benito Schwartz Urea nitrogen/Creatinine [Mass ratio] 29.7 mg/mg Normal [facility] Comment on above: Performed By: #### B 12FOL, FETIBC #### [facility] [address] [address] [address] Benito Schwartz CBC AUTO DIFFon 03-06-2022 BASO # 0.0 103/ul Normal 0.0-0.1 [facility] Comment on above: Performed By: #### B 12FOL, FETIBC #### [facility] [address] [place] [address] Dr. Benito Schwartz Basophils/100 WBC (Bld) 0.2 % Normal 0.2-2.0 [facility] Comment on above: Performed By: #### B 12FOL, FETIBC #### [facility] [address] [place] [address] Dr. Benito Schwartz EO # 0.1 103/ul Normal 0.0-0.7 [facility] Comment on above: Performed By: #### B 12FOL, FETIBC #### [facility] [address] [place] [address] Dr. Benito Schwartz Eosinophils/100 WBC (Bld) 2.4 % Normal 0.9-7.0 [facility] Comment on above: Performed By: #### B 12FOL, FETIBC #### [facility] [address] [place] [address] Dr. Benito Schwartz Erythrocyte distribution width (RBC) [Ratio] 13.8 % Normal 11.0-15.0 [facility] Comment on above: Performed By: #### B 12FOL, FETIBC #### [facility] [address] [place] [address] Dr. Benito Schwartz Hematocrit (Bld) [Volume fraction] 27.7 % Critically low 42.0-54.0 [facility] Comment on above: Performed By: #### B 12FOL, FETIBC #### [facility] [address] [place] [address] Dr. Benito Schwartz Hemoglobin (Bld) [Mass/Vol] 8.7 g/dL Critically low 14.0-18.0 [facility] Comment on above: Performed By: #### B 12FOL, FETIBC #### [facility] [address] [place] [address] Dr. Benito Schwartz IG # 0.02 10e3/ul Normal 0.00-0.03 [facility] Comment on above: Performed By: #### B 12FOL, FETIBC #### [facility] [address] [place] [address] Dr. Benito Schwartz IG % 0.3 % Normal 0.0-0.5 [facility] Comment on above: Performed By: #### B 12FOL, FETIBC #### [facility] [address] [place] [address] Dr. Benito Schwartz LYMPH # 1.0 103/ul Critically low 1.2-3.8 [facility] Comment on above: Performed By: #### B 12FOL, FETIBC #### [facility] [address] [place] [address] Dr. Benito Schwartz Lymphocytes/100 WBC (Bld) 16.7 % Critically low 20.5-6 0.0 [facility] Comment on above: Performed By: #### B 12FOL, FETIBC #### [facility] [address] [place] [address] Dr. Benito Schwartz MANUAL DIFF REQ NO Normal [facility] Comment on above: Performed By: #### B 12FOL, FETIBC #### [facility] [address] [place] [address] Dr. Benito Schwartz MCH (RBC) [Entitic mass] 29.1 pg Normal 25.9-34.0 [facility] Comment on above: Performed By: #### B 12FOL, FETIBC #### [facility] [address] [place] [address] Dr. Benito Schwartz MCHC (RBC) [Mass/Vol] 31.4 g/dL Normal 29.9-35.2 [facility] Comment on above: Performed By: #### B 12FOL, FETIBC #### [facility] [address] [place] [address] Dr. Benito Schwartz MCV (RBC) [Entitic vol] 92.6 fL Normal 80.0-94.0 [facility] Comment on above: Performed By: #### B 12FOL, FETIBC #### [facility] [address] [place] [address] Dr. Benito Schwartz MONO # 0.9 103/ul Critically high 0.3-0.8 [facility] Comment on above: Performed By: #### B 12FOL, FETIBC #### [facility] [address] [address] [address] Benito Schwartz Monocytes/100 WBC (Bld) 15.3 % Critically high 1.7-12. 0 [facility] Comment on above: Performed By: #### B 12FOL, FETIBC #### [facility] [address] [address] [address] Benito Schwartz NEUT # 3.7 103/ul Normal 1.4-6.5 [facility] Comment on above: Performed By: #### B 12FOL, FETIBC #### [facility] [address] [address] [address] Benito Schwartz Neutrophils/100 WBC (Bld) 65.1 % Normal 43.0-75.0 [facility] Comment on above: Performed By: #### B 12FOL, FETIBC #### [facility] [address] [place] [address] Dr. Benito Schwartz Platelet mean volume (Bld) [Entitic vol] 9.7 fL Normal 9.5-13.5 [facility] Comment on above: Performed By: #### B 12FOL, FETIBC #### [facility] [address] [address] [address] Benito Schwartz PLT 205 103/ul Normal 150-450 [facility] Comment on above: Performed By: #### B 12FOL, FETIBC #### [facility] [address] [address] [address] Benito Schwartz RBC 2.99 106/ul Critically low 4.70-6.10 [facility] Comment on above: Performed By: #### B 12FOL, FETIBC #### [facility] [address] [address] [address] Benito Schwartz WBC 5.7 103/ul Normal 4.0-11.0 [facility] Comment on above: Performed By: #### B 12FOL, FETIBC #### [facility] [address] [place] [address] HEAD WO CONon [...] by: ANTHONY TRACEY Date: 2022-03-06 12:33 Normal [facility] IRON AND TIBCon 03-06-2022 % SATURATION 24.7 % Normal [facility] Comment on above: Performed By: #### B 12FOL, FETIBC #### [facility] [address] [address] [address] Benito Schwartz Iron [Mass/Vol] 55.0 ug/dL Critically low 65.0-175.0 [facility] Comment on above: Performed By: #### Adria 12FOL, FETIBC #### [facility] [address] [address] [address] Benito Schwartz TIBC DIRECT 223.0 ug/dL Critically low 250.0-450.0 [facility] Comment on above: Performed By: #### B 12FOL, FETIBC #### [facility] [address] [address] [address] Benito Schwartz POINT OF CARE GLUCOSEon 02-14 Glucose [Mass/Vol] 145 mg/dL Critically high 74-106 [facility] Comment on above: Performed By: #### V ITAD #### [facility] [address] [address] [address] Benito Schwartz PROF CHEM 8 (BAS METB)on Anion gap [Moles/Vol] 14.6 mmol/L Normal [facility] Comment on above: Performed By: #### V ITAD #### [facility] [address] [address] [address] Benito Schwartz Calcium [Mass/Vol] 9.0 mg/dL Normal 8.5-10.1 [facility] Comment on above: Performed By: #### V ITAD #### [facility] [address] [address] [address] Benito Schwartz Chloride [Moles/Vol] 106 mmol/L Normal 98-107 [facility] Comment on above: Performed By: #### V ITAD #### [facility] [address] [address] [address] Benito Schwartz CO2 [Moles/Vol] 26.3 mmol/L Normal 21.0-32.0 [facility] Comment on above: Performed By: #### V ITAD #### [facility] [address] [address] [address] Benito Schwartz Creatinine [Mass/Vol] 2.40 mg/dL Critically high 0.70-1.30 [facility] Comment on above: Performed By: #### V ITAD #### [facility] [address] [address] [address] Benito Schwartz EGFR-AF MACEDONIAN 32 mL/min/1.73m2 Critically low >=60 [facility] Comment on above: Performed By: #### V ITAD #### [facility] [address] [address] [address] Benito Schwartz EGFR-NON AF MACEDONIAN 26 mL/min/1.73m2 Critically low >=60 [facility] Comment on above: Performed By: #### V ITAD #### [facility] [address] [address] [address] Benito Schwartz Glucose [Mass/Vol] 108 mg/dL Critically high 74-106 [facility] Comment on above: Performed By: #### V ITAD #### [facility] [address] [address] [address] Benito Schwartz Potassium [Moles/Vol] 3.9 mmol/L Normal 3.5-5.1 [facility] Comment on above: Performed By: #### V ITAD #### [facility] [address] [address] [address] Benito Schwartz Sodium [Moles/Vol] 143 mmol/L Normal 136-145 [facility] Comment on above: Performed By: #### V ITAD #### [facility] [address] [address] [address] Benito Schwartz Urea nitrogen [Mass/Vol] 72.0 mg/dL Critically high 7.0-18 .0 [facility] Comment on above: Performed By: #### V ITAD #### [facility] [address] [address] [address] Benito Schwartz Urea nitrogen/Creatinine [Mass ratio] 30.0 mg/mg Normal [facility] Comment on above: Performed By: #### V ITAD #### [facility] [address] [address] [address] Benito Schwartz VIT B12 AND FOLATEon 022 Cobalamin (Vitamin B12) [Mass/Vol] 432.0 pg/mL Normal 193.0-986.0 [facility] Comment on above: Performed By: #### B 12FOLoli, FETIBC #### [facility] [address] [address] [address] Benito Schwartz FOLATE 21.60 ng/mL Normal 8.60-58.90 [facility] Comment on above: Performed By: #### B 12FOL, FETIBC #### [facility] [address] [address] [address] Benito Schwartz BNPon 03-05-2022 Natriuretic peptide B (Bld) [Mass/Vol] 6910.0 pg/mL Critically high <=1,800.0 [facility] Comment on above: Result Comment: Test Repeated. Critical Value Verified Performed By: #### B 12FOL, FETIBC #### [facility] [address] [place] [address] Dr. Benito Schwartz CBC AUTO DIFFon 03-05-2022 BASO # 0.0 103/ul Normal 0.0-0.1 [facility] Comment on above: Performed By: #### F T4, PSASC #### [facility] [address] [place] [address] Dr. Benito Schwartz Basophils/100 WBC (Bld) 0.3 % Normal 0.2-2.0 [facility] Comment on above: Performed By: #### F T4, PSASC #### [facility] [address] [place] [address] Dr. Benito Schwartz EO # 0.2 103/ul Normal 0.0-0.7 [facility] Comment on above: Performed By: #### F T4, PSASC #### [facility] [address] [place] [address] Dr. Benito Schwartz Eosinophils/100 WBC (Bld) 2.7 % Normal 0.9-7.0 [facility] Comment on above: Performed By: #### F T4, PSASC #### [facility] [address] [place] [address] Dr. Benito Schwartz Erythrocyte distribution width (RBC) [Ratio] 13.7 % Normal 11.0-15.0 [facility] Comment on above: Performed By: #### F T4, PSASC #### [facility] [address] [place] [address] Dr. Benito Schwartz Hematocrit (Bld) [Volume fraction] 27.9 % Critically low 42.0-54.0 [facility] Comment on above: Performed By: #### F T4, PSASC #### [facility] [address] [place] [address] Dr. Benito Schwartz Hemoglobin (Bld) [Mass/Vol] 8.9 g/dL Critically low 14.0-18.0 [facility] Comment on above: Performed By: #### F T4, PSASC #### [facility] [address] [place] [address] Dr. Benito Schwartz IG # 0.01 10e3/ul Normal 0.00-0.03 [facility] Comment on above: Performed By: #### F T4, PSASC #### [facility] [address] [place], [place] [id number] Dr. Benito Schwartz IG % 0.2 % Normal 0.0-0.5 [facility] Comment on above: Performed By: #### F T4, PSASC #### [facility] [address] [place] [address] Dr. Benito Schwartz LYMPH # 1.3 103/ul Normal 1.2-3.8 [facility] Comment on above: Performed By: #### F T4, PSASC #### [facility] [address] [place] [address] Dr. Benito Schwartz Lymphocytes/100 WBC (Bld) 21.5 % Normal 20.5-60.0 [facility] Comment on above: Performed By: #### F T4, PSASC #### [facility] [address] [place] [address] Dr. Benito Schwartz MANUAL DIFF REQ NO Normal [facility] Comment on above: Performed By: #### F T4, PSASC #### [facility] [address] [place] [address] Dr. Benito Schwartz MCH (RBC) [Entitic mass] 29.5 pg Normal 25.9-34.0 [facility] Comment on above: Performed By: #### F T4, PSASC #### [facility] [address] [place] [address] Dr. Benito Schwartz MCHC (RBC) [Mass/Vol] 31.9 g/dL Normal 29.9-35.2 [facility] Comment on above: Performed By: #### F T4, PSASC #### [facility] [address] [place] [address] Dr. Benito Schwartz MCV (RBC) [Entitic vol] 92.4 fL Normal 80.0-94.0 [facility] Comment on above: Performed By: #### F T4, PSASC #### [facility] [address] [place] [address] Dr. Benito Schwartz MONO # 1.0 103/ul Critically high 0.3-0.8 [facility] Comment on above: Performed By: #### F T4, PSASC #### [facility] [address] [place] [address] Dr. Benito Schwartz Monocytes/100 WBC (Bld) 16.3 % Critically high 1.7-12. 0 [facility] Comment on above: Performed By: #### F T4, PSASC #### [facility] [address] [place] [address] Dr. Benito Schwartz NEUT # 3.5 103/ul Normal 1.4-6.5 [facility] Comment on above: Performed By: #### F T4, PSASC #### [facility] [address] [place] [address] Dr. Benito Schwartz Neutrophils/100 WBC (Bld) 59.0 % Normal 43.0-75.0 [facility] Comment on above: Performed By: #### F T4, PSASC #### [facility] [address] [place] [address] Dr. Benito Schwartz Platelet mean volume (Bld) [Entitic vol] 9.5 fL Normal 9.5-13.5 [facility] Comment on above: Performed By: #### F T4, PSASC #### [facility] [address] [place] [address] Dr. Benito Schwartz PLT 213 103/ul Normal 150-450 [facility] Comment on above: Performed By: #### F T4, PSASC #### [facility] [address] [place] [address] Dr. Benito Schwartz RBC 3.02 106/ul Critically low 4.70-6.10 [facility] Comment on above: Performed By: #### F T4, PSASC #### [facility] [address] [place] [address] Dr. Benito Schwartz WBC 5.9 103/ul Normal 4.0-11.0 [facility] Comment on above: Performed By: #### F T4, PSASC #### [facility] [address] [place] [address] Dr. Benito Schwartz CULTURE BLOODon 03-05-2022 Microscopic examination of blood, culture Culture Observations: NO GROWTH AT 5 DAYS. Normal [facility] Comment on above: Performed By: #### V ITAD #### [facility] [address] [place] [address] Dr. Benito Schwartz [facility]14 SARS-CoV-2 (COVID-19) RNA ZITA+probe Ql (Unsp spec) Not detected Normal NOT DETECTED [facility] Comment on above: Result Comment: This test is not yet approved or cleared by the [place] FDA. When there are no FDA-approved or cleared tests available, and other criteria are met, FDA can make tests available under an emergency access mechanism called an Emergency Use Authorization (EUA). The EUA for this test is supported by the Telecommunications Analyst of Health and Human Service's (HHS's) declaration [...] SARS-CoV-2. Performed By: #### C BC #### [facility] [address] [place] [address] Dr. Benito Schwartz FREE T4on 03-05-2022 Free T4 [Mass/Vol] ng/dL Critically high 0.76-1.46 [facility] Comment on above: Performed By: #### C BC #### [facility] [address] [place], [place] [id number] Dr. Benito Schwartz LACTATE/LACTIC ACIDon 2021 Lactate [Moles/Vol] 1.2 mmol/L Normal 0.4-1.9 [facility] Comment on above: Performed By: #### F T4 #### [facility] [address] [place] [address] Dr. Benito Schwartz PROF 14(COMP METB)on 022 Albumin [Mass/Vol] 2.9 g/dL Critically low 3.4-5.0 [facility] Comment on above: Performed By: #### F T4, PSASC #### [facility] [address] [place] [address] Dr. Benito Schwartz Albumin/Globulin [Mass ratio] 0.8 {ratio} Normal [facility] Comment on above: Performed By: #### F T4, PSASC #### [facility] [address] [address] [address] Benito Schwartz ALP [Catalytic activity/Vol] 107 U/L Normal 46-116 [facility] Comment on above: Performed By: #### F T4, PSASC #### [facility] [address] [address] [address] Benito Schwartz ALT [Catalytic activity/Vol] 25 U/L Normal 16-63 [facility] Comment on above: Performed By: #### F T4, PSASC #### [facility] [address] [address] [address] Benito Schwartz Anion gap [Moles/Vol] 14.2 mmol/L Normal [facility] Comment on above: Performed By: #### F T4, PSASC #### [facility] [address] [place] [address] Dr. Benito Schwartz AST [Catalytic activity/Vol] 17 U/L Normal 15-37 [facility] Comment on above: Performed By: #### F T4, PSASC #### [facility] [address] [address] [address] Benito Schwartz Bilirubin [Mass/Vol] 0.5 mg/dL Normal 0.2-1.0 [facility] Comment on above: Performed By: #### F T4, PSASC #### [facility] [address] [address] [address] Benito Schwartz Calcium [Mass/Vol] 9.1 mg/dL Normal 8.5-10.1 [facility] Comment on above: Performed By: #### F T4, PSASC #### [facility] [address] [address] [address] Benito Schwartz Chloride [Moles/Vol] 104 mmol/L Normal 98-107 [facility] Comment on above: Performed By: #### F T4, PSASC #### [facility] [address] [place] [address] Dr. Benito Schwartz CO2 [Moles/Vol] 27.0 mmol/L Normal 21.0-32.0 [facility] Comment on above: Performed By: #### F T4, PSASC #### [facility] [address] [place] [address] Dr. Benito Schwartz Creatinine [Mass/Vol] 2.97 mg/dL Critically high 0.70-1.30 [facility] Comment on above: Performed By: #### F T4, PSASC #### [facility] [address] [place] [address] Dr. Benito Schwartz EGFR-AF MACEDONIAN 25 mL/min/1.73m2 Critically low >=60 [facility] Comment on above: Performed By: #### F T4, PSASC #### [facility] [address] [place] [address] Dr. Benito Schwartz EGFR-NON AF MACEDONIAN 21 mL/min/1.73m2 Critically low >=60 [facility] Comment on above: Performed By: #### F T4, PSASC #### [facility] [address] [place] [address] Dr. Benito Schwartz Globulin (S) [Mass/Vol] 3.6 g/dL Normal [facility] Comment on above: Performed By: #### F T4, PSASC #### [facility] [address] [place] [address] Dr. Benito Schwartz Glucose [Mass/Vol] 162 mg/dL Critically high 74-106 [facility] Comment on above: Performed By: #### F T4, PSASC #### [facility] [address] [place] [address] Dr. Benito Schwartz Potassium [Moles/Vol] 4.2 mmol/L Normal 3.5-5.1 [facility] Comment on above: Performed By: #### F T4, PSASC #### [facility] [address] [place] [address] Dr. Benito Schwartz Protein [Mass/Vol] 6.5 g/dL Normal 6.4-8.2 [facility] Comment on above: Performed By: #### F T4, PSASC #### [facility] [address] [address] [address] Benito Schwartz Sodium [Moles/Vol] 141 mmol/L Normal 136-145 [facility] Comment on above: Performed By: #### F T4, PSASC #### [facility] [address] [place] [address] Dr. Benito Schwartz Urea nitrogen [Mass/Vol] 74.0 mg/dL Critically high 7.0-18 .0 [facility] Comment on above: Performed By: #### F T4, PSASC #### [facility] [address] [place] [address] Dr. Benito Schwartz Urea nitrogen/Creatinine [Mass ratio] 24.9 mg/mg Normal [facility] Comment on above: Performed By: #### F T4, PSASC #### [facility] [address] [place] [address] Dr. Benito Schwartz TROPONIN, HIGH SENSITIVITYon 03-05-2022 HSTROP 39.6 pg/mL Normal 4.0-76.1 [facility] Comment on above: Result Comment: CUT- OFF POINTS HAVE BEEN ESTABLISHED BASED ON THE FOURTH UNIVERSAL DEFINITIONS OF MYOCARDIAL INFARCTION. THE UPPER REFERENCE LIMIT (URL) OF TROPONIN, DEFINED THE 99TH PERCENTILE OF cTnI DISTRIBUTION IN A REFERENCE POPULATION, HAS BEEN CONFIRMED THE DECISION THRESHOLD FOR MA DIAGNOSIS. Performed By: #### F T4, PSASC #### [facility] [address] [place] [address] Dr. Benito Schwartz TSHon 03-05-2022 TSH Qn m[IU]/L Critically low 0.358-3.740 [facility] Comment on above: Performed By: #### F T4 #### [facility] [address] [place] [address] Dr. Benito Schwartz TSH RANGE SEE BELOW Normal [facility] Comment on above: Result Comment: <0.3 4 UIU/ml HYPERTHYROID 0.34-5.60 UIU/ml EUTHYROID >5.60 UIU/ml HYPOTHYROID Performed By: #### F T4 #### [facility] [address] [place] [address] Dr. Benito Schwartz THYROIDon 03-04-2022 US THYROID EXAMINATION: US THYROID [...] MALENA RIOS Date: 2022-03-04 13:56 Normal [facility] - Chemistry and C hemistry - challengeOrdered By: Enrrique Mckeon on 02-22-2022 Natriuretic peptide B (Bld) [Mass/Vol] 251.0 pg/mL [address] No Panel InformationOrdered By: Enrrique Mckeon on 02-22-2022 251.0 pg/mL [address] TSH DL <= 0.005 mIU/L QnOrde red By: Enrrique Mckeon on 02-22-2022 TSH Qn m[IU]/L Low 0.45-5.33 [facility] TSH Qn Serum or plasma thyroid stimulating hormone (TSH) measurement by high sensitivity met Low 0.45-5.33 [facility] Coding Summaryon 07-08-2021 Coding Summary HTMLBase 64 TzwflcewKFr8nGz+PGhl YWQ+DH3PQJPtS42psVZi sF3PN4qVML5AQJCZVRKW PL7GAX1nuEA5QSldZ5Em biAv VmhwhQLdDS35RYh1UGM0 pBkvQEivmV4tlBNgE9g3 AwMrYI85pL19MGojNCLj UrI9ScBootfybPJn B3rqAtOiqWCiVjh+PHRh YmxlIHdpZHRoPScxMDAl WsTmdVrfUA7lXc2qMSQc LWNvbGxhcHNlOiBj o0ncZAGbFSgcWK2rsMtk O5EujIG9RFPdb7e6Qk55 dHI+CUAxZPN5pOamAIgg m736HaCdv2vkDMV9 wAQmRHddBTJ7A89lu0N0 TRItAOTyXHA1dIO5iY0z eQydawzuQ5NqdZSlBgP2 BEQ0kGZboF5rmEvd bjvlfS3bHdx+I86KST7Z ZHENAL5XIrq9Q9ApXohv dHI+ED32CPFiYS29kBNc sTLwx7wqxPy4PyOy IDNsEYQ2mNlcHRwvx6Uw VCPpC41jgTWnv0L5WXUi aIrlkYMcQyPznUE2uK7j FSlimbsio2mlwrjy Wuxor0hjef75fF18Z21o FNrcOQRtHYO5FJMcNVYh oAvukp1vzY0iAl2+IDxj g3mcr1xizBt9QsEd OSJtdtLujLapVRQ2i4Qh Ur83W1EwpIvlq1AaAci4 pt55uNAoz4T0mOC1HXun ZGLjqF3yCRjjPsW9 QDLuNzCzqF04bLCaOGds Aw0xuNdnvBnyKB0vJZKc foviDSOptN8lSVDjwUDs eDrhHU9xOHZpsxxl l846OkYqXXG8EDUzmAJs I9KevB7zLuPyNXFgFAAy H5NkdZQnRCfbW361DVen IkY8LUGcllEsJ2Dh BYXqiCsfYaF5g5S7Ib8M r9KbntygWOX2EBnaMTD8 NlJqPgVwByH1S8KpPtq4 LZQyoVfbFX2xH8Ce FTOyqeqrlkiwcCH3JFOp ZRQgcR16xVJtRRjmKd7t j8R8x725NKAuUJFqzF99 Rr7nvKdjLLTxkVRT rS0pcyplz6cwwuldQuCo RBQrBZu5XId3RQMshRbv FpKwRQN7TwO0TRN3eZAn zH8rlZurjtvldG0b Oyc+L43pdF7iEOQ8CWI3 vfmvVVFtskZbKS54FF85 J6PlZbwjbFJpgOQ+PGRp zmLazEvuFY7eDoDt f3umg6AlULjkW3QaRMDp IIhtUgv4GMQsDBC7sAA9 sC2sBZUrAWydo1N5yWW8 S4UvodXmjz4fs8ys EUXwDLfkX74suTSst8X9 XPBzeRU1UBZyrHmnPlNs wQ93Qgg+YTPwuBwxh8Xu Qautt0heg0depWz4 IjMwJSIgdmFsaWduPSJ0 g1ZdMr41O03eAOjiVLCm QOIjJXIjTQBrcDzwvt8e tK9jCk0+PGNvbCB3 pAE3dX8oWRMrRkE8ILye Z975JfCniDQeZztkm2wz y3ptmXh8IsHeOELlsmBy wOctUFD4h2FgEn25 Q47qGFhwEAKfGFYrGTHu WZTlmUepze7mbG0aXj9+ AW8md6vbah00hX33mUC+ VVMhVEM4gCjpMYtr JFIptB9aYQhuYuU4FOOq OyItrL22pBKiFYsuNv5u uAfzdIsiZY0yBWIvxvar i074VrUah0qlDVPk tHMoFGrxABC9K97xo6B5 FRKaRTIwHXT8sTE9nH5n bGlnbjogbGVmdDsgdmVy vVhpFNyaIUevB230 IHRvcDsnPlBhdGllbnQg TqFoVKv3B3JzCyh2FXGo nYpaYN3inKIiCEglMn4x mGsudZtdHJ6lIBDh ldezb191SoUyo4ctOVJf yOKvXKiqLGS5X27ah3U6 WUUnRGIuSXY6tMN5rL3z bGlnbjogbGVmdDsg oxWleIntMLvaQVbdC427 IHRvcDsnPkJpcnRoIERh hMB4RJ44OW65fAAwc5E0 xRN5Z4CqEHLyrgdt gvxogDP2FPLeEOSeiB65 Jd3kcBykFl9eIZEwRJO4 BRHrfQLfY0CklL7tHiDj JVKgOKKrE6RriJKx TCkrF880NNdaJvT5HNGv lxWoF3ZhHFPziIdgZuA3 u0B7Yn1HI2T4PQ16CZ39 sATdn3M4eWF7K4Ud RBNpisyeyydekWZ2FTJs NOFbgZ80Jj4vtJfdEd7w PDFbSDE9TWFfbZZuM2Yt yN6kBzHsWUUgCGZi T5EisPLlAVuhR526VYch HpV1GZKlyhOfH9XmYNAw bJbyGbV7s6J9Ae3DNBs7 NQ26UJ50zQLpo9V0 zAL9A4RpHFAosyrrklms xUX6BSFhVBDuvP10Tl9q xRenLj3dZTOjNZZ2FPCb yXJgM2XryG6oMuXl MSQdCEXeY0TmiASiDIay U423TUbsPqU4JGOtgmFv F2AuOJVdjBijUkT1k4C3 Mn1TJXKwWM86RSG7 uAD8HK33YA63U3SvHlju dGFibGU+PHRhYmxlIHdp ZHRoPScxMDAlJyBzdHls BE3xXl2nKEFdQRJc pFvekJVsBbPoa1imRYJl IBcwSC9ugZgmU6LfzKK7 ILSto4h6Ce91W00hG2Qj dXA+GBVtdOA8gJQ9 cT4zFzMfSqU5KDhfB691 StIjnHUyNdlxj5jyf1cn bIn2HpL8BKQbelHfwJkd NDG2u7CyYi91W17g IHdpZHRoPSIxNSUiIHZh kAdlks3sgI8wUo1+PGNv kTT2jHA5tX1jXpZpXsY5 CPhcY766GyTwjROf Rqmvl4rei9zvoOn4IjEn XBBlooEuvCgiAZY6o8Aj Ul86H5AddBlmc9YpBmw5 az07gSDsy5X9vJC9 S6XvEADniqsshSWfrXcx JB1sPCDgnfkjKWUnfU3a CQRlH7q4DzLjFyH5PHqh L8FzxcJ4SSEshHEq SFcxRTJ8M95lu3P0YIMp ZIWpZKB3pAC5bL4fbEij bjogbGVmdDsgdmVydGlj XCryVOyhI463GYFa jMblNFWsqC3xWSVniQYk fIyxQQ8pXYFrnrvpUwIZ LQMNSdyfBhQLMpk0E0Yj Sfc3LPPakBkyOK1x wZZfXDtqFs3kfFcsnVkv QA9hTDUltmjcCKGeeC2t HTDlfCTowWqbJT8pGZKm pepxi269KhFbWJO6 PJKkxCBdG8WkaU7qMvLw ORYyLLToN5OpcORqHDpz F651CZedMcP3NGFwxaPl F7HmBGXegAhrRiY6 v1J8Qb1uBe2pXY3eGDXg EB28LS07zJCnz4I2gSW9 J4UtPCTyadekhghjfNC1 KSGqTGMvyL24yVKu LOqfNe7qo5B2c997ZRCe IYVbiN98Ta0hlRvpEYYl kFHAfJ2erqajn6rrehdg KcNrKNQdAHh2EJd0 VNPpoHbhEzZsJND0XrM1 AVR5kGUufJ6omGxzvhxe nS2jVeg+NzkgWWVhcnM8 D7HnRop7SOQkpUcq PC4cxLZtNAfoDx6dxDen vJxjMK2fEDZztkxvBCVp gD4gYARzcTWegOdxJU5t RYPzecnoi004CzCg QHG9IQHefQKyQ1HueO5o IfPlDRLnYRIhD1JwwOSq OYdaH093QPwbWyF5MTPw ajSpH1BgFRItuQjp LcS3x1Y0Vg4TSSdKYB68 GW97oZVii2W1jTQ8L6Eq FYKkkqokrzwdiMJ1JJRe ASFpuG37gNOmVTbf Xu1rl1D9k079MRXaUDYw sD54Us9tbHtaVGAkeJZA fM6bjfcdd8shysdjHdJm EZObWMt4OUl5JDAf oCfoAfOnTXA4TkM2ZDR0 nUAvnN8ifMmqhnoakV7y Oyc+P1F4K6BpKijsgVA+ VT07HHOwKK72bJDo aRIcv3nckTt1GkTpRIMk OZS2kSsmTJjjs8AyWROy I16xrPBtd1F1LCYooTcl sDYaVgQvoCO3wJ5k MUkfimumq0algmrtYjki s3kugv97qC46T82kSMny ZHRoPSIzMCUiIHZhbGln mb0onE8pVr1+PGNv lGN7iOZ1zM8eEbSuQbM7 MXrdR996WoVndQGxQugx k0aml4qevKh4AxCcJKXc pgHclVpxLQO0f4By Le58D95aRQjvSWHoZRFz DBFbBDOqtLbuvj9ugL4o Ii8+VM7ft6sdtn91aF97 dHI+JDJlMSA5tMyu TDpbFPYmmO3dJFeeVbG6 SEBdWxRkcB16uZFlTUzh Ui0wdDshgKneLV1dPIHr xcepm676KhOei3ow GVXrpUMpMAfvPOZ6W15g k4I4MPHpMDSjXGW1pAX3 gB4fyFjztywnsZCpiUpn dmVydGljYWwtYWxp F543EPGqcVgvEqMboAKm Y5ugnkLWBU5rUhttoYL+ PVYfQSP9kIciWAreQYGj pX7qIISrR9c9SsKn HaI7MPetV7SjsuE0NAOf dNIhHYXqtGINtJ8fydlx k1wllqsiOdJgPQXzNPh7 KTh8BLVyxAhxJbKv FTT4OtY8IMX5cAOurG2r sAdrunwvnL8wBbj+RklO OjwvdGQ+EEFuBDQ6dMly VGhfLGXfgG5rLGZt T3x5DrVqIfM2CXwhF1Sc qpM3MUPhyRAbEPCylMJX aS9geooax2ehcbhkHdOx EKTtUGf0WMp4PGKe iRqkDzTnMJP7WnH0FDH9 bWUbvD4ltDkwmvecvU4c Oyc+TVJOOjwvdGQ+PHRk MJX2cCqxJIhmUBTq iM0dRQJaG2r9HeRlPuW6 TXqwZ3WjwkV8MIChpZZa BPGllYDOnY0aakexc9ok cjogIzAwMDAwMDt0 NFs1SGPyuPhbLkXqLBK4 BxC7OHV1jVSdeW1ztVdm tnqrmH8xEnv+RCM4EXH5 DO25OP03C5WwXeeh dGFibGU+PHRhYmxlIHdp ZHRoPScxMDAlJyBzdHls BC7yRv1zDFVuWLLusJzg uFNqYpCds2ekDJFr ZTs (more content not included)... [facility] Provider Orderson 07-05-2021 Provider Orders [id number] #[id number] Normal [facility] Creatinine Lvlon 07-02-2021 eGFR Non AA 29 mL/min/1.73m2 Invalid Interpretation Code [facility] Comment on above: Performed By: #### [id number] #### [facility] (DEFAULT) [address] [place] [id number] eGFR AA 35 mL/min/1.73m2 Invalid Interpretation Code [facility] Comment on above: Result Comment: Character Artist hilda Kidney disease could be indicated at eGFRs of less than 60 ml/min/1.73m2. Kidney Failure is indicated at less than 15 ml/min/1.73m2 Performed By: #### [id number] #### [facility] (DEFAULT) [address] [place] [id number] Creatinine [Mass/Vol] 2.19 mg/dL High 0.90-1.30 [facility] Comment on above: Performed By: #### [id number] #### [facility] (DEFAULT) [address] [place] [id number] Vital Signs Date Time Vital Sign Value Performing Clinician Facility 07-08-2025 09:32-0400 Body height 180.34 cm Yas Ball DO Work Phone: [facility] 07-08-2025 09:32-0400 Body mass index (BMI) [Ratio] 27.9 kg/m2 Yas Ball DO Work Phone: [facility] 07-08-2025 09:32-0400 Body weight 90.83 kg Yas Ball DO Work Phone: [facility] 07-08-2025 09:32-0400 Diastolic blood pressure 89 mm[Hg] Yas Ball DO Work Phone: [facility] 07-08-2025 09:32-0400 Heart rate 79 /min Yas Ball DO Work Phone: [facility] 07-08-2025 09:32-0400 Respiratory rate 12 /min Yas Ball DO Work Phone: [facility] 07-08-2025 09:32-0400 Systolic blood pressure 139 mm[Hg] Yas Ball DO Work Phone: [facility] 07-07-2025 10:25-0400 Body height 180.34 cm Yas Ball DO Work Phone: [facility] 07-07-2025 10:25-0400 Body mass index (BMI) [Ratio] 27 kg/m2 Yas Ball DO Work Phone: [facility] 07-07-2025 10:25-0400 Body weight 87.99 kg Yas Ball DO Work Phone: [facility] 07-07-2025 10:25-0400 Diastolic blood pressure 90 mm[Hg] Yas Ball DO Work Phone: [facility] 07-07-2025 10:25-0400 Heart rate 71 /min Ysa Ball DO Work Phone: [facility] 07-07-2025 10:25-0400 SaO2% (BldA) [Mass fraction] 95 % Yas Ball DO Work Phone: [facility] 07-07-2025 10:25-0400 Systolic blood pressure 164 mm[Hg] Yas Ball DO Work Phone: [facility] 06-06-2025 12:59-0400 Body height 180.34 cm Yas Ball DO Work Phone: [facility] 06-06-2025 12:59-0400 Body mass index (BMI) [Ratio] 27.6 kg/m2 Yas Ball DO Work Phone: [facility] 06-06-2025 12:59-0400 Body temperature 97.8 [degF] Yas Ball DO Work Phone: [facility] 06-06-2025 12:59-0400 Body weight 89.81 kg Yas Ball DO Work Phone: [facility] 06-06-2025 12:59-0400 Diastolic blood pressure 78 mm[Hg] Yas Ball DO Work Phone: [facility] 06-06-2025 12:59-0400 Heart rate 72 /min Yas Ball DO Work Phone: [facility] 06-06-2025 12:59-0400 Respiratory rate 16 /min Yas Ball DO Work Phone: [facility] 06-06-2025 12:59-0400 SaO2% (BldA) [Mass fraction] 97 % Yas Ball DO Work Phone: [facility] 06-06-2025 12:59-0400 Systolic blood pressure 135 mm[Hg] Yas Ball DO Work Phone: [facility] 05-26-2025 10:12-0400 Body height 180.3 cm Emelywilberto Batista DPM Work Phone: [facility] 05-26-2025 10:12-0400 Body mass index (BMI) [Ratio] 27.2 kg/m2 Emely Mclean DPM Work Phone: [facility] 05-26-2025 10:12-0400 Body weight 88.45 kg Emely Batista DPM Work Phone: [facility] 04-17-2025 16:15-0400 Body height 180.34 cm Yas Ball DO Work Phone: [facility] 04-17-2025 16:15-0400 Body mass index (BMI) [Ratio] 27.1 kg/m2 Yas Ball DO Work Phone: [facility] 04-17-2025 16:15-0400 Body temperature 96.9 [degF] Yas Ball DO Work Phone: [facility] 04-17-2025 16:15-0400 Body weight 88.22 kg Yas Ball DO Work Phone: [facility] 04-17-2025 16:15-0400 Diastolic blood pressure 76 mm[Hg] Yas Ball DO Work Phone: [facility] 04-17-2025 16:15-0400 Heart rate 99 /min Yas Ball DO Work Phone: [facility] 04-17-2025 16:15-0400 Respiratory rate 18 /min Yas Ball DO Work Phone: [facility] 04-17-2025 16:15-0400 SaO2% (BldA) [Mass fraction] 98 % Yas Ball DO Work Phone: [facility] 04-17-2025 16:15-0400 Systolic blood pressure 137 mm[Hg] Yas Ball DO Work Phone: [facility] 04-07-2025 09:00-0400 Body height 180.34 cm Yas Ball DO Work Phone: [facility] 04-07-2025 09:00-0400 Body mass index (BMI) [Ratio] 27.5 kg/m2 Yas Ball DO Work Phone: [facility] 04-07-2025 09:00-0400 Body weight 89.41 kg Yas Ball DO Work Phone: [facility] 04-07-2025 09:00-0400 Diastolic blood pressure 89 mm[Hg] Yas Ball DO Work Phone: [facility] 04-07-2025 09:00-0400 Heart rate 78 /min Yas Ball DO Work Phone: [facility] 04-07-2025 09:00-0400 Respiratory rate 12 /min Yas Ball DO Work Phone: [facility] 04-07-2025 09:00-0400 Systolic blood pressure 139 mm[Hg] Yas Ball DO Work Phone: [facility] 03-25-2025 13:16-0400 Body height 180.34 cm Yas Ball DO Work Phone: [facility] 03-25-2025 13:16-0400 Body mass index (BMI) [Ratio] 27.5 kg/m2 Yas Ball DO Work Phone: [facility] 03-25-2025 13:16-0400 Body weight 89.41 kg Yas Ball DO Work Phone: [facility] 03-25-2025 13:16-0400 Diastolic blood pressure 80 mm[Hg] Yas Ball DO Work Phone: [facility] 03-25-2025 13:16-0400 Heart rate 76 /min Yas Ball DO Work Phone: [facility] 03-25-2025 13:16-0400 Respiratory rate 12 /min Yas Ball DO Work Phone: [facility] 03-25-2025 13:16-0400 Systolic blood pressure 165 mm[Hg] Yas Ball DO Work Phone: [facility] 02-28-2025 12:56-0400 Body height 180.34 cm Yas Ball DO Work Phone: [facility] 02-28-2025 12:56-0400 Body mass index (BMI) [Ratio] 27.4 kg/m2 Yas Ball DO Work Phone: [facility] 02-28-2025 12:56-0400 Body weight 89.35 kg Yas Ball DO Work Phone: [facility] 02-28-2025 12:56-0400 Diastolic blood pressure 72 mm[Hg] Yas Ball DO Work Phone: [facility] 02-28-2025 12:56-0400 Heart rate 72 /min Yas Ball DO Work Phone: [facility] 02-28-2025 12:56-0400 Respiratory rate 16 /min Yas Ball DO Work Phone: [facility] 02-28-2025 12:56-0400 SaO2% (BldA) [Mass fraction] 99 % Yas Ball DO Work Phone: [facility] 02-28-2025 12:56-0400 Systolic blood pressure 156 mm[Hg] Yas Ball DO Work Phone: [facility] 02-21-2025 10:46-0400 Body height 180.3 cm Emely Batista DPM Work Phone: [facility] 02-21-2025 10:46-0400 Body mass index (BMI) [Ratio] 27.34 kg/m2 Emely Batista DPM Work Phone: [facility] 02-21-2025 10:46-0400 Body weight 88.91 kg Emely Batista DPM Work Phone: [facility] 01-28-2025 14:22-0400 Body height 180.34 cm Yas Ball DO Work Phone: [facility] 01-28-2025 14:22-0400 Body mass index (BMI) [Ratio] 27.3 kg/m2 Yas Ball DO Work Phone: [facility] 01-28-2025 14:22-0400 Body weight 88.9 kg Yas Ball DO Work Phone: [facility] 01-28-2025 14:22-0400 Diastolic blood pressure 70 mm[Hg] Yas Ball DO Work Phone: [facility] 01-28-2025 14:22-0400 Heart rate 87 /min Yas Ball DO Work Phone: [facility] 01-28-2025 14:22-0400 Respiratory rate 12 /min Yas Ball DO Work Phone: [facility] 01-28-2025 14:22-0400 Systolic blood pressure 151 mm[Hg] Yas Ball DO Work Phone: [facility] 01-20-2025 11:05-0400 Body height 180.34 cm Yas Ball DO Work Phone: [facility] 01-20-2025 11:05-0400 Body mass index (BMI) [Ratio] 27.8 kg/m2 Yas Ball DO Work Phone: [facility] 01-20-2025 11:05-0400 Body temperature 97.4 [degF] Yas Ball DO Work Phone: [facility] 01-20-2025 11:05-0400 Body weight 90.37 kg Yas Ball DO Work Phone: [facility] 01-20-2025 11:05-0400 Diastolic blood pressure 66 mm[Hg] Yas Ball DO Work Phone: [facility] 01-20-2025 11:05-0400 Heart rate 81 /min Yas Ball DO Work Phone: [facility] 01-20-2025 11:05-0400 Respiratory rate 18 /min Yas Ball DO Work Phone: [facility] 01-20-2025 11:05-0400 SaO2% (BldA) [Mass fraction] 96 % Yas Ball DO Work Phone: [facility] 01-20-2025 11:05-0400 Systolic blood pressure 108 mm[Hg] Yas Ball DO Work Phone: [facility] 01-10-2025 06:03-0400 Body temperature 98.3 [degF] Yas Ball DO Work Phone: [facility] 01-10-2025 06:03-0400 Diastolic blood pressure 66 mm[Hg] Yas Ball DO Work Phone: [facility] 01-10-2025 06:03-0400 Heart rate 69 /min Yas Ball DO Work Phone: [facility] 01-10-2025 06:03-0400 Respiratory rate 16 /min Yas Ball DO Work Phone: [facility] 01-10-2025 06:03-0400 SaO2% (BldA) [Mass fraction] 94 % Yas Ball DO Work Phone: [facility] 01-10-2025 06:03-0400 Systolic blood pressure 145 mm[Hg] Yas Ball DO Work Phone: [facility] 01-10-2025 06:00-0400 Body weight 95.2 kg Yas Ball DO Work Phone: [facility] 01-08-2025 07:58-0400 Body height 180.34 cm Yas Ball DO Work Phone: [facility] 12-30-2024 05:00-0400 Inhaled oxygen flow rate 1 L/min Yas Ball DO Work Phone: [facility] 12-27-2024 12:17-0400 Diastolic blood pressure 66 mm[Hg] Yas Ball DO Work Phone: [facility] 12-27-2024 12:17-0400 Heart rate 69 /min Yas Ball DO Work Phone: [facility] 12-27-2024 12:17-0400 Inhaled oxygen flow rate 3 L/min Yas Ball DO Work Phone: [facility] 12-27-2024 12:17-0400 Respiratory rate 18 /min Yas Ball DO Work Phone: [facility] 12-27-2024 12:17-0400 SaO2% (BldA) [Mass fraction] 99 % Yas Ball DO Work Phone: [facility] 12-27-2024 12:17-0400 Systolic blood pressure 114 mm[Hg] Yas Ball DO Work Phone: [facility] 12-27-2024 05:45-0400 Body weight 99.2 kg Yas Ball DO Work Phone: [facility] 12-27-2024 05:44-0400 Body temperature 97.9 [degF] Yas Ball DO Work Phone: [facility] 12-24-2024 13:50-0400 Body height 180.34 cm Yas Ball DO Work Phone: [facility] 12-24-2024 03:09-0400 Inhaled oxygen concentration 40 % Yas Ball DO Work Phone: [facility] 12-19-2024 08:55-0500 Body height 180.34 cm [facility] 12-19-2024 08:55-0500 Body mass index (BMI) [Ratio] 28.9 kg/m2 [facility] 12-19-2024 08:55-0500 Body weight 94 kg [facility] 12-19-2024 08:55-0500 Diastolic blood pressure 70 mm[Hg] [facility] 12-19-2024 08:55-0500 Heart rate 69 /min [facility] 12-19-2024 08:55-0500 Respiratory rate 12 /min [facility] 12-19-2024 08:55-0500 SaO2% (BldA) [Mass fraction] 96 % [facility] 12-19-2024 08:55-0500 Systolic blood pressure 124 mm[Hg] [facility] 08-08-2024 10:27-0400 Diastolic blood pressure 80 mm[Hg] Avery Syed MD Work Phone: [facility] 08-08-2024 10:27-0400 Heart rate 72 /min Avery Syed MD Work Phone: [facility] 08-08-2024 10:27-0400 Systolic blood pressure 150 mm[Hg] Avery Syed MD Work Phone: [facility] 08-08-2024 10:25-0400 Body height 180.3 cm Avery Syed MD Work Phone: [facility] 08-08-2024 10:25-0400 Body mass index (BMI) [Ratio] 30.52 kg/m2 Avery Syed MD Work Phone: [facility] 08-08-2024 10:25-0400 Body weight 99.25 kg Avery Syed MD Work Phone: [facility] 07-09-2024 10:33-0400 Diastolic blood pressure 74 mm[Hg] Sidra Elisha DO Work Phone: [facility] 07-09-2024 10:33-0400 Heart rate 70 /min Sidra Elisha DO Work Phone: [facility] 07-09-2024 10:33-0400 SaO2% (BldA) [Mass fraction] 93 % Sidra Elisha DO Work Phone: [facility] 07-09-2024 10:33-0400 Systolic blood pressure 136 mm[Hg] Sidra Elisha DO Work Phone: [facility] 04-22-2024 10:44-0400 Body height 180.34 cm DO Yas Ball Work Phone: [facility] 04-22-2024 10:44-0400 Body mass index (BMI) [Ratio] 30.2 kg/m2 DO Yas Ball Work Phone: [facility] 04-22-2024 10:44-0400 Body weight 98.14 kg DO Yas Ball Work Phone: [facility] 04-22-2024 10:44-0400 Diastolic blood pressure 69 mm[Hg] DO Yas Ball Work Phone: [facility] 04-22-2024 10:44-0400 Heart rate 73 /min DO Yas Ball Work Phone: [facility] 04-22-2024 10:44-0400 Respiratory rate 12 /min DO Yas Ball Work Phone: [facility] 04-22-2024 10:44-0400 Systolic blood pressure 135 mm[Hg] DO Yas Ball Work Phone: [facility] 03-01-2024 11:11-0400 Body height 180.34 cm DO Yas Ball Work Phone: [facility] 03-01-2024 11:11-0400 Body mass index (BMI) [Ratio] 30.1 kg/m2 DO Yas Ball Work Phone: [facility] 03-01-2024 11:11-0400 Body temperature 98 [degF] DO Yas Ball Work Phone: [facility] 03-01-2024 11:11-0400 Body weight 97.97 kg DO Yas Ball Work Phone: [facility] 03-01-2024 11:11-0400 Diastolic blood pressure 75 mm[Hg] DO Yas Ball Work Phone: [facility] 03-01-2024 11:11-0400 Heart rate 67 /min DO Yas Ball Work Phone: [facility] 03-01-2024 11:11-0400 Respiratory rate 18 /min DO Yas Ball Work Phone: [facility] 03-01-2024 11:11-0400 SaO2% (BldA) [Mass fraction] 95 % DO Yas Ball Work Phone: [facility] 03-01-2024 11:11-0400 Systolic blood pressure 158 mm[Hg] DO Yas Ball Work Phone: [facility] 02-08-2024 10:19-0400 Diastolic blood pressure 58 mm[Hg] Avery Syed MD Work Phone: [facility] [employer] [facility] 02-08-2024 10:19-0400 Heart rate 70 /min Avery Syed MD [facility] 02-08-2024 10:19-0400 Systolic blood pressure 126 mm[Hg] [facility] 02-08-2024 10:18-0400 Body mass index (BMI) [Ratio] 29.99 kg/m2 Avery Syed [facility] 02-08-2024 10:18-0400 Body weight 97.52 kg Avery Syed MD [facility] 12-18-2023 10:07-0500 Body height 180.34 cm DO Yas Ball Work Phone: [facility] 12-18-2023 10:07-0500 Body mass index (BMI) [Ratio] 30.2 kg/m2 DO Yas Ball Work Phone: [facility] 12-18-2023 10:07-0500 Body weight 98.2 kg DO Yas Ball Work Phone: [facility] 12-18-2023 10:07-0500 Diastolic blood pressure 76 mm[Hg] DO Yas Ball Work Phone: [facility] 12-18-2023 10:07-0500 Heart rate 72 /min DO Yas Ball Work Phone: [facility] 12-18-2023 10:07-0500 Respiratory rate 12 /min DO Yas Ball Work Phone: [facility] 12-18-2023 10:07-0500 Systolic blood pressure 131 mm[Hg] DO Yas Ball Work Phone: [facility] 09-01-2023 13:51-0500 Body height 180.34 cm DO Yas Ball Work Phone: [facility] 09-01-2023 13:51-0500 Body temperature 97.7 [degF] DO Yas Ball Work Phone: [facility] 09-01-2023 13:51-0500 Body weight 98.02 kg DO Yas Ball Work Phone: [facility] 09-01-2023 13:51-0500 Diastolic blood pressure 79 mm[Hg] DO Yas Ball Work Phone: [facility] 09-01-2023 13:51-0500 Heart rate 70 /min DO Yas Ball Work Phone: [facility] 09-01-2023 13:51-0500 Respiratory rate 20 /min DO Yas Ball Work Phone: [facility] 09-01-2023 13:51-0500 SaO2% (BldA) [Mass fraction] 96 % DO Yas Ball Work Phone: [facility] 09-01-2023 13:51-0500 Systolic blood pressure 147 mm[Hg] DO Yas Ball Work Phone: [facility] 08-22-2023 10:00-0500 Body height Yas Ball Other [employer] Other 08-22-2023 10:00-0500 Body mass index (BMI) [Ratio] 29.35 kg/m2 Yas Ball Other [employer] Other 08-22-2023 10:00-0500 Body weight 98.16 kg Yas Ball Other [employer] Other 08-22-2023 10:00-0500 Diastolic blood pressure 74 mm[Hg] Yas Ball Other [employer] Other 08-22-2023 10:00-0500 Respiratory rate 12 /min Yas Ball Other [employer] Other 08-22-2023 10:00-0500 Systolic blood pressure 135 mm[Hg] Yas Ball Other [employer] Other 04-20-2023 09:30-0400 Body height Yas Ball Other [employer] Other 04-20-2023 09:30-0400 Body mass index (BMI) [Ratio] 29.62 kg/m2 Yas Ball Other [employer] Other 04-20-2023 09:30-0400 Body weight 99.07 kg Yas Ball Other [employer] Other 04-20-2023 09:30-0400 Diastolic blood pressure 64 mm[Hg] Yas Ball Other [employer] Other 04-20-2023 09:30-0400 Respiratory rate 12 /min Yas Ball Other [employer] Other 04-20-2023 09:30-0400 Systolic blood pressure 113 mm[Hg] Yas Ball Other [employer] Other 12-15-2022 10:00-0500 Body height Yas Ball Other [employer] Other 12-15-2022 10:00-0500 Body mass index (BMI) [Ratio] 29.81 kg/m2 Yas Ball Other [employer] Other 12-15-2022 10:00-0500 Body weight 99.7 kg Yas Ball Other [employer] Other 12-15-2022 10:00-0500 Diastolic blood pressure 70 mm[Hg] Yas Ball Other [employer] Other 12-15-2022 10:00-0500 Respiratory rate 12 /min Yas Ball Other [employer] Other 12-15-2022 10:00-0500 Systolic blood pressure 122 mm[Hg] Yas Ball Other [employer] Other 09-02-2022 14:11-0500 Body weight 98.9 kg DO Yas Ball Work Phone: [facility] 09-02-2022 14:11-0500 Diastolic blood pressure 72 mm[Hg] DO Yas Ball Work Phone: [facility] 09-02-2022 14:11-0500 Heart rate 60 /min DO Yas Ball Work Phone: [facility] 09-02-2022 14:11-0500 Respiratory rate 20 /min DO Yas Ball Work Phone: [facility] 09-02-2022 14:11-0500 SaO2% (BldA) [Mass fraction] 96 % DO Yas Ball Work Phone: [facility] 09-02-2022 14:11-0500 Systolic blood pressure 153 mm[Hg] DO Yas Ball Work Phone: [facility] 07-21-2022 10:130400 Diastolic blood pressure 64 mm[Hg] DO Yas Ball Work Phone: [facility] 07-21-2022 10:130400 Heart rate 60 /min DO Yas Ball Work Phone: [facility] 07-21-2022 10:13-0400 Respiratory rate 16 /min DO Yas Ball Work Phone: [facility] 07-21-2022 10:130400 SaO2% (BldA) [Mass fraction] 95 % DO Yas Ball Work Phone: [facility] 07-21-2022 10:13-0400 Systolic blood pressure 135 mm[Hg] DO Yas Ball Work Phone: [facility] 07-21-2022 08:10-0400 Body height 180.34 cm DO Yas Ball Work Phone: [facility] 07-21-2022 08:10-0400 Body temperature 98.2 [degF] DO Yas Ball Work Phone: [facility] 07-21-2022 08:10-0400 Body weight 90.71 kg DO Yas Ball Work Phone: [facility] 06-17-2022 10:25-0400 Body temperature 98.2 [degF] DO Yas Ball Work Phone: [facility] 06-17-2022 10:25-0400 Diastolic blood pressure 58 mm[Hg] DO Yas Ball Work Phone: [facility] 06-17-2022 10:25-0400 Heart rate 62 /min DO Yas Ball Work Phone: [facility] 06-17-2022 10:25-0400 Respiratory rate 18 /min DO Yas Ball Work Phone: [facility] 06-17-2022 10:25-0400 SaO2% (BldA) [Mass fraction] 98 % DO Yas Linda Work Phone: [facility] 06-17-2022 10:25-0400 Systolic blood pressure 124 mm[Hg] DO Yas Linda Work Phone: [facility] 06-03-2022 09:55-0400 Body height 180.34 cm DO Yas Linda Work Phone: [facility] 06-03-2022 09:55-0400 Body weight 92.85 kg DO Yas Linda Work Phone: [facility] Encounters Encounter Date Encounter Type Care Provider Facility Start: 07-08-2025 End: 07-08-2025 ambulatory Yas Linda DO Work Phone: [place] Work Phone: Start: 07-08-2025 End: 07-08-2025 Patient encounter procedure Yas Linda DO -[facility] Work Phone: Start: 07-07-2025 End: 07-07-2025 ambulatory Yas Linda DO Work Phone: [place] Work Phone: Start: 07-07-2025 End: 07-07-2025 Patient encounter procedure Sidra Deleon DO -[facility] Work Phone: Start: 07-01-2025 Non-patient / Non-visit Yas pedroza DO -[facility] Work Phone: Start: 06-25-2025 ambulatory [facility] Start: 06-25-2025 Encounter for preprocedural cardiovascular examination [facility] Start: 06-06-2025 Registered Recurring Chivo Keller II DO -[facility] Work Phone: Start: 06-06-2025 End: 06-06-2025 ambulatory Yas Linda DO Work Phone: [place] Work Phone: Start: 06-06-2025 End: 06-06-2025 Patient encounter procedure Kecia Mayfield -[facility] Work Phone: Start: 05-30-2025 End: 06-02-2025 External Result Encounter Chivo Keller DO Work Phone: [facility] Unsolicited Start: 05-30-2025 End: 06-02-2025 External Result Encounter Chivo Keller DO Work Phone: [facility] Unsolicited Start: 05-29-2025 ambulatory RON ALEJANDRE [facility] Start: 05-27-2025 End: 05-27-2025 ambulatory TRANG DEGROOT [facility] Start: 05-26-2025 End: 05-26-2025 Bamboo flowsheet Emely Batista DPM Work Phone: [facility] Start: 05-26-2025 End: 05-26-2025 Bamboo flowsheet Emely Batista DPM Work Phone: [facility] Start: 05-26-2025 End: 05-26-2025 Patient encounter procedure Emely Batista DPM Work Phone: [facility] Comment on above: Onychomycosis (Prima ry Dx); Onychodystrophy; Diabetic polyneuropathy associated with type 2 diabetes mellitus (HCC) Start: 05-26-2025 End: 05-26-2025 ambulatory Kilo Berryink [facility] Comment on above: Greater trochanteric bursitis of left hip (Primary Dx); History of total hip arthroplasty, right; Left hip pain Start: 05-23-2025 End: 05-23-2025 Bamboo flowsheet Kilo Brink [facility] Start: 05-23-2025 End: 05-23-2025 Bamboo flowsheet Kilo Brink [facility] Start: 05-23-2025 End: 05-23-2025 ambulatory Kilo Glaser [facility] Comment on above: Greater trochanteric bursitis of left hip (Primary Dx); History of total hip arthroplasty, right; Left hip pain Start: 05-21-2025 End: 05-21-2025 Bamboo flowsheet Kilo Glaser [facility] Start: 05-21-2025 End: 05-21-2025 Bamboo flowsheet Kilo Glaser [facility] Start: 05-21-2025 End: 05-21-2025 ambulatory Kilo Glaser [facility] Comment on above: Greater trochanteric bursitis of left hip (Primary Dx); History of total hip arthroplasty, right; Left hip pain Start: 05-19-2025 End: 05-19-2025 Bamboo flowsheet Fermin Daileyy IMAGE EDITOR [facility] Start: 05-19-2025 End: 05-19-2025 Bamboo flowsheet Fermin Daileyy [facility]AGE EDITOR [facility] Start: 05-19-2025 End: 05-19-2025 ambulatory eFrmin Sánchez [facility] Comment on above: Greater trochanteric bursitis of left hip (Primary Dx); History of total hip arthroplasty, right; Left hip pain Start: 05-16-2025 End: 05-16-2025 Bamboo flowsheet Kilo Glaser IMAGE EDITOR [facility] Start: 05-16-2025 End: 05-16-2025 Bamboo flowsheet Kilo Glaser IMAGE EDITOR [facility] Start: 05-16-2025 End: 05-16-2025 ambulatory Kilo Glaser [facility] Comment on above: Greater trochanteric bursitis of left hip (Primary Dx); History of total hip arthroplasty, right; Left hip pain Start: 05-14-2025 End: 05-14-2025 Bamboo flowsheet Kilo Glaser IMAGE EDITOR [facility] Start: 05-14-2025 End: 05-14-2025 Bamboo flowsheet Kilo Glaser IMAGE EDITOR [facility] Start: 05-14-2025 End: 05-14-2025 ambulatory Kilo Glaser [facility] Comment on above: Greater trochanteric bursitis of left hip (Primary Dx); History of total hip arthroplasty, right; Left hip pain Start: 05-12-2025 End: 05-12-2025 Bamboo flowsheet Fermin Sánchez IM[facility]OR [facility] Start: 05-12-2025 End: 05-12-2025 Bamboo flowsheet Fermin Sánchez IMAGE EDITOR [facility] Start: 05-12-2025 End: 05-12-2025 ambulatory Fermin Sánchez [facility] Comment on above: Greater trochanteric bursitis of left hip (Primary Dx); History of total hip arthroplasty, right; Left hip pain Start: 05-09-2025 End: 05-09-2025 Bamboo flowsheet Fermin Sánchez [facility] Start: 05-09-2025 End: 05-09-2025 Bamboo flowsheet Fermin Sánchez [facility] Start: 05-09-2025 End: 05-09-2025 ambulatory Fermin Sánchez [facility] Comment on above: Greater trochanteric bursitis of left hip (Primary Dx); History of total hip arthroplasty, right; Left hip pain Start: 05-07-2025 End: 05-07-2025 Bamboo flowsheet Fermin Sánchez [facility] Start: 05-07-2025 End: 05-07-2025 Bamboo flowsheet Fermin Sánchez [facility] Start: 05-07-2025 End: 05-07-2025 ambulatory Fermin Sánchez [facility] Comment on above: Greater trochanteric bursitis of left hip (Primary Dx); History of total hip arthroplasty, right; Left hip pain Start: 05-05-2025 End: 05-05-2025 Bamboo flowsheet Fermin Daileyy [facility] Start: 05-05-2025 End: 05-05-2025 Bamboo flowsheet Fermin Sánchez [facility] Start: 05-05-2025 End: 05-05-2025 ambulatory Fermin Sánchez [facility] Comment on above: Greater trochanteric bursitis of left hip (Primary Dx); History of total hip arthroplasty, right; Left hip pain Start: 2025 End: 2025 Bamboo flowsheet Fermin Sánchez [facility] Start: 2025 End: 2025 Bamboo flowsheet Fermin Sánchez [facility] Start: 2025 End: 2025 ambulatory Fermin Sánchez [facility] Comment on above: Greater trochanteric bursitis of left hip (Primary Dx); History of total hip arthroplasty, right; Left hip pain Start: 04-30-2025 End: 04-30-2025 Bamboo flowsheet Kilo Brink [facility] Start: 04-30-2025 End: 04-30-2025 Bamboo flowsheet Kilo Brink [facility] Start: 04-30-2025 End: 04-30-2025 ambulatory Kilo Brink [facility] Comment on above: Greater trochanteric bursitis of left hip (Primary Dx); History of total hip arthroplasty, right; Left hip pain Start: 04-29-2025 End: 04-29-2025 ambulatory Yas Ball DO Work Phone: [place] Work Phone: Start: 04-29-2025 End: 04-29-2025 Patient encounter procedure Walker Soria MD -[facility] Work Phone: Start: 04-28-2025 End: 04-28-2025 Bamboo flowsheet Kilo Brink [facility] Start: 04-28-2025 End: 04-28-2025 Bamboo flowsheet Kilo Brink [facility] Start: 04-28-2025 End: 04-28-2025 ambulatory Kilo Brink [facility] Comment on above: Greater trochanteric bursitis of left hip (Primary Dx); History of total hip arthroplasty, right; Left hip pain Start: 04-25-2025 End: 04-25-2025 Bamboo flowsheet Kilo Brink [facility] Start: 04-25-2025 End: 04-25-2025 Bamboo flowsheet Kilo Glaser [facility] Start: 04-25-2025 End: 04-25-2025 ambulatory Kilo Glaser [facility] Comment on above: Greater trochanteric bursitis of left hip (Primary Dx); History of total hip arthroplasty, right; Left hip pain Start: 04-23-2025 End: 04-23-2025 Bamboo flowsheet Fermin Daileyy [facility]AGE EDIT[facility] Start: 04-23-2025 End: 04-23-2025 Bamboo flowsheet Fermin Daileyy [facility]AGE [facility] Start: 04-23-2025 End: 04-23-2025 ambulatory Fermin Sánchez [facility] Comment on above: Greater trochanteric bursitis of left hip (Primary Dx); History of total hip arthroplasty, right; Left hip pain Start: 04-21-2025 End: 04-21-2025 Bamboo flowsheet Fermin Daileyy [facility]AGE [facility] Start: 04-21-2025 End: 04-21-2025 Bamboo flowsheet Fermin Daileyy [facility]AGE [facility] Start: 04-21-2025 End: 04-21-2025 ambulatory Fermin Sánchez [facility] Comment on above: Greater trochanteric bursitis of left hip (Primary Dx); History of total hip arthroplasty, right; Left hip pain Start: 04-17-2025 End: 04-17-2025 Patient encounter procedure Zahida Flowers MD -[facility] Work Phone: Start: 04-17-2025 End: 04-17-2025 Bamboo flowsheet Kilo Glaser [facility]AGE [facility] Start: 04-17-2025 End: 04-17-2025 Bamboo flowsheet Kilo Glaser [facility] Start: 04-17-2025 End: 04-17-2025 ambulatory Kilo Glaser [facility] Comment on above: Greater trochanteric bursitis of left hip (Primary Dx); History of total hip arthroplasty, right; Left hip pain Start: 04-15-2025 End: 04-15-2025 ambulatory Kenny Aldana PT Work Phone: [facility] Comment on above: Greater trochanteric bursitis of left hip (Primary Dx); History of total hip arthroplasty, right; Left hip pain Start: 04-14-2025 End: 04-14-2025 ambulatory [facility] Start: 04-14-2025 End: 04-14-2025 Bamboo flowsheet Kilo Glaser [facility]AGE [facility] Start: 04-14-2025 End: 04-14-2025 Bamboo flowsheet Kilo Berryink [facility]AGE [facility]OR [facility] Start: 04-14-2025 End: 04-14-2025 ambulatory Kilo Glaser [facility] Comment on above: Greater trochanteric bursitis of left hip (Primary Dx); History of total hip arthroplasty, right; Left hip pain Start: 04-11-2025 End: 04-11-2025 Bamboo flowsheet Kilo Glaser [facility]AGE [facility] Start: 04-11-2025 End: 04-11-2025 Bamboo flowsheet Kilo Glaser [facility]AGE [facility] Start: 04-11-2025 End: 04-11-2025 ambulatory Kilo Glaser [facility] Comment on above: Greater trochanteric bursitis of left hip (Primary Dx); History of total hip arthroplasty, right; Left hip pain Start: 04-09-2025 End: 04-09-2025 Bamboo flowsheet Fermin Daileyy [facility]AGE [facility] Start: 04-09-2025 End: 04-09-2025 Bamboo flowsheet Fermin Daileyy [facility]AGE [facility]OR [facility] Start: 04-09-2025 End: 04-09-2025 ambulatory Fermin Sánchez [facility] Comment on above: Greater trochanteric bursitis of left hip (Primary Dx); History of total hip arthroplasty, right; Left hip pain Start: 04-08-2025 Non-patient / Non-visit Zahida Flowers MD -[facility] Work Phone: Start: 04-07-2025 End: 04-07-2025 ambulatory Fermin Sánchez [facility] Comment on above: Greater trochanteric bursitis of left hip (Primary Dx); History of total hip arthroplasty, right; Left hip pain Start: 04-07-2025 End: 04-07-2025 Bamboo flowsheet Fermin Sánchez [facility] Start: 04-07-2025 End: 04-07-2025 Bamboo flowsheet Fermin Sánchez [facility] Start: 04-07-2025 ambulatory [facility] Start: 04-07-2025 End: 04-07-2025 Patient encounter procedure Yas Linda DO -[facility] Work Phone: Start: 04-04-2025 End: 04-04-2025 Bamboo flowsheet Kilo Berryink IMAGE [facility] Start: 04-04-2025 End: 04-04-2025 Bamboo flowsheet Kilo Brink [facility]AGE [facility]OR [facility] Start: 04-04-2025 End: 04-04-2025 ambulatory Kilo Glaser [facility] Comment on above: Greater trochanteric bursitis of left hip (Primary Dx); History of total hip arthroplasty, right; Left hip pain Start: 04-02-2025 End: 04-02-2025 Bamboo flowsheet Kilo Berryink [facility]AGE [facility] Start: 04-02-2025 End: 04-02-2025 Bamboo flowsheet Kilo Berryink [facility]AGE [facility]OR [facility] Start: 04-02-2025 End: 04-02-2025 ambulatory Kilo Berryink [facility] Comment on above: Greater [...] 03-28-2025 End: 03-28-2025 Bamboo flowsheet Kilo Glaser [facility]AGE [facility] Start: 03-28-2025 End: 03-28-2025 Bamboo flowsheet Kilo Glaser [facility]AGE [facility] Start: 03-28-2025 End: 03-28-2025 ambulatory Kilo Glaser [facility] Comment on above: Greater trochanteric bursitis of left hip (Primary Dx); History of total hip arthroplasty, right; Left hip pain Start: 03-26-2025 End: 03-26-2025 Bamboo flowsheet Sherif Almodovar [facility]AGE [facility]OR [facility] Start: 03-26-2025 End: 03-26-2025 Bamboo flowsheet Sherif Almodovar [facility]AGE [facility]OR [facility] Start: 03-26-2025 End: 03-26-2025 ambulatory Sherif Almodovar [facility] Comment on above: Greater trochanteric bursitis of left hip (Primary Dx); History of total hip arthroplasty, right; Left hip pain Start: 03-25-2025 End: 03-25-2025 ambulatory Yas Linda DO Work Phone: [place] Work Phone: Start: 03-25-2025 End: 03-25-2025 Patient encounter procedure Yas Linda DO -[facility] Work Phone: Start: 03-25-2025 End: 03-25-2025 Yas Maddi DO Work Phone: [facility] Work Phone: Start: 03-25-2025 End: 03-25-2025 ambulatory [facility] Start: 03-24-2025 End: 03-24-2025 ambulatory Fermin Sánchez [facility]AGE [facility] Comment on above: Greater trochanteric bursitis of left hip (Primary Dx); History of total hip arthroplasty, right; Left hip pain Start: 03-24-2025 End: 03-24-2025 Bamboo flowsheet Fermin Sánchez IMAGE [facility] Start: 03-24-2025 End: 03-24-2025 Bamboo flowsheet Fermin Sánchez IMAGE [facility]OR [facility] Start: 03-21-2025 End: 03-21-2025 Bamboo flowsheet Kilo Glaser IMAGE EDITOR [facility] Start: 03-21-2025 End: 03-21-2025 Bamboo flowsheet Kilo Glaser IMAGE EDITOR [facility] Start: 03-21-2025 End: 03-21-2025 ambulatory Kilo Glaser [facility] Comment on above: Greater trochanteric bursitis of left hip (Primary Dx); History of total hip arthroplasty, right; Left hip pain Start: 03-19-2025 End: 03-19-2025 ambulatory Kenny Aldana PT Work Phone: [facility] Comment on above: Greater trochanteric bursitis of left hip (Primary Dx); History of total hip arthroplasty, right; Left hip pain Start: 03-19-2025 End: 03-19-2025 Bamboo flowsheet Kenny Aldana PT Work Phone: [facility] Start: 03-19-2025 End: 03-19-2025 Bamboo flowsashu Aldana PT Work Phone: [facility] Start: 03-04-2025 ambulatory [facility] Start: 02-28-2025 End: 02-28-2025 External Result Encounter Chivo Keller DO Work Phone: [facility] Unsolicited Start: 02-28-2025 End: 02-28-2025 External Result Encounter Chivo Keller DO Work Phone: [facility] External [facility] Unsolicited Start: 02-28-2025 Registered Recurring Chivo Keller II DO -[facility] Work Phone: Start: 02-28-2025 Yas Linda DO Work Phone: [facility] Work Phone: Start: 02-28-2025 End: 02-28-2025 Patient encounter procedure Chivo Keller II DO -[facility] Work Phone: Start: 02-28-2025 End: 02-28-2025 Yas Ball DO Work Phone: [facility] Work Phone: Start: 02-25-2025 End: 02-25-2025 ambulatory Yas Ball DO Work Phone: [place] Work Phone: Start: 02-25-2025 End: 02-25-2025 Patient encounter procedure Walker Soria MD -[facility] Work Phone: Start: 02-25-2025 End: 02-25-2025 Yas Ball DO Work Phone: [facility] [facility] Work Phone: Start: 02-24-2025 End: 02-25-2025 External Result Encounter Chivo Lynda Keller DO Work Phone: [facility] External Department Unsolicited Start: 02-24-2025 End: 02-25-2025 External Result Encounter Chivo Howell Arianna DO Work Phone: [facility] External Department Unsolicited Start: 02-24-2025 Yas Linda DO [facility] Work Phone: Start: 02-21-2025 End: 02-21-2025 Bamboo flowsheet Emely Batista DPM Work Phone: [facility] Start: 02-21-2025 End: 02-21-2025 Bamboo flowsheet Emely Batista DPM Work Phone: [facility] Start: 02-21-2025 End: 02-21-2025 Office outpatient new 30 minutes Emely Batista DPM Work Phone: [facility] Comment on above: Diabetic polyneuropa thy associated with type 2 diabetes mellitus (CMS/HCC) (Primary Dx); Onychodystrophy; Onychomycosis Start: 02-21-2025 End: 02-21-2025 ambulatory EMELY BATISTA Not Available Start: 02-20-2025 Non-patient / Non-visit Yas pedroza DO -[facility] Work Phone: Start: 02-20-2025 Yas Maddi DO Work Phone: [facility] Work Phone: Start: 01-28-2025 End: 01-28-2025 ambulatory Yas Ball DO Work Phone: [place] Work Phone: Start: 01-28-2025 End: 01-28-2025 Patient encounter procedure Yas Linda DO -[facility] Work Phone: Start: 01-28-2025 End: 01-28-2025 Yas Ball DO Work Phone: [facility] Physician [facility] Work Phone: Start: 01-28-2025 End: 01-28-2025 [facility] Start: 01-27-2025 End: 01-27-2025 Telephone encounter Connie GARCIA [facility] Start: 01-23-2025 ambulatory TRANG DEGROOT [facility] Start: 01-20-2025 End: 01-20-2025 ambulatory Yas Ball DO Work Phone: [place] Work Phone: Start: 01-20-2025 End: 01-20-2025 Patient encounter procedure Zahida Flowers MD -[facility] Work Phone: Start: 01-20-2025 End: 01-20-2025 Yas Ball DO Work Phone: [facility] Work Phone: Start: 01-16-2025 End: 01-16-2025 ambulatory Yas Ball DO Work Phone: [facility] Work Phone: Start: 01-16-2025 End: 01-16-2025 Yas Ball DO Work Phone: [facility] Work Phone: Start: 01-14-2025 End: 01-14-2025 Yas Ball DO Work Phone: [facility] Physician [facility] Work Phone: Start: 01-14-2025 End: 01-14-2025 ambulatory Yas Ball DO Work Phone: [facility] Work Phone: Start: 01-10-2025 Yas Ball DO Work Phone: [facility] Physician [facility] Work Phone: Start: 01-06-2025 Yas Ball DO Work Phone: [facility] Physician [facility] Work Phone: Start: 01-04-2025 Yas Ball DO Work Phone: [facility] Work Phone: Start: 01-03-2025 Yas Ball DO Work Phone: [facility] Physician [facility] Work Phone: Start: 12-30-2024 Yas Ball DO Work Phone: [facility] Physician [facility] Work Phone: Start: 12-28-2024 Yas Ball DO Work Phone: [facility] Work Phone: Start: 12-27-2024 End: 01-10-2025 Yas Ball DO Work Phone: [facility] Work Phone: Start: 12-27-2024 End: 01-10-2025 Evaluation and management of inpatient Yas Ball DO Work Phone: [facility] Work Phone: Start: 12-26-2024 [facility] Start: 12-25-2024 Non-patient / Non-visit Benjam in Ball DO Work Phone: [facility] Physician [facility] Work Phone: Start: 12-25-2024 Yas Ball DO Work Phone: [facility] Work Phone: Start: 12-24-2024 Non-patient / Non-visit Benjam in Ball DO Work Phone: [facility] Physician [facility] Work Phone: Start: 12-24-2024 Ysa Ball DO Work Phone: [facility] Physician [facility] Work Phone: Start: 12-23-2024 Non-patient / Non-visit Benjam in Ball DO Work Phone: [facility] Work Phone: Start: 12-23-2024 Yas Ball DO Work Phone: [facility] Work Phone: Start: 12-22-2024 Non-patient / Non-visit Benjam in Ball DO Work Phone: [facility] Work Phone: Start: 12-22-2024 Yas Ball DO Work Phone: [facility] Work Phone: Start: 12-22-2024 Yas Ball DO Work Phone: [facility] Work Phone: Start: 12-21-2024 End: 12-27-2024 Yas Ball DO Work Phone: [facility] Work Phone: Start: 12-21-2024 End: 12-27-2024 Evaluation and management of inpatient Yas Ball DO Work Phone: [facility] Work Phone: Start: 12-21-2024 Non-patient / Non-visit Benjam in Ball DO Work Phone: [facility] Physician [facility] Work Phone: Start: 12-21-2024 Yas Ball DO Work Phone: [facility] Physician [facility] Work Phone: Start: 12-19-2024 End: 12-19-2024 ambulatory [facility] Work Phone: Start: 12-19-2024 End: 12-19-2024 Patient encounter procedure [facility] Physician [facility] Work Phone: Start: 12-19-2024 End: 12-19-2024 Yas Ball DO Work Phone: [facility] Physician [facility] Work Phone: Start: 12-04-2024 End: 12-04-2024 Bamboo flowsheet Marilin Clay CCC-A Work Phone: [facility] Start: 12-04-2024 End: 12-04-2024 Bamboo flowsheet Marilin Clay CCC-A Work Phone: [facility] Start: 12-04-2024 End: 12-04-2024 Clinical Support Marilin Clay CCC-A Work Phone: [facility] Comment on above: Sensorineural hearin g loss (SNHL) of both ears (Primary Dx) Start: 11-20-2024 ambulatory [facility] Start: 11-13-2024 End: 11-13-2024 ambulatory ENRRIQUE [facility] Start: 11-07-2024 Non-patient / Non-visit [facility] Work Phone: Start: 11-07-2024 Yas Linda DO Work Phone: [facility] Physician [facility] Work Phone: Start: 10-29-2024 ambulatory [facility] Start: 10-17-2024 ambulatory [facility] Start: 10-17-2024 End: 10-17-2024 ambulatory [facility] Start: 10-11-2024 Non-patient / Non-visit [facility] Work Phone: Start: 10-03-2024 ambulatory [facility] Start: 09-30-2024 ambulatory [facility] Start: 09-17-2024 ambulatory [facility] Start: 09-10-2024 End: 09-10-2024 ambulatory [facility] Start: 09-02-2024 ambulatory [facility] Start: 08-22-2024 End: 08-22-2024 ambulatory Yas Linda Facility:[facility] Start: 08-21-2024 End: 08-21-2024 Bamboo flowsheet Mrailin Clay CCC-A Work Phone: [facility] Start: 08-21-2024 End: 08-21-2024 Bamboo flowsheet Marilin Clay CCC-A Work Phone: [facility] Start: 08-21-2024 End: 08-21-2024 Clinical Support Marilin Clay CCC-A Work Phone: [facility] Comment on above: Bilateral impacted c erumen (Primary Dx) Start: 08-08-2024 End: 08-08-2024 Office outpatient visit 25 minutes Avery Syed MD Work Phone: [facility] Comment on above: Stage 4 chronic kidn ey disease (CMS-HCC) (Primary Dx) Start: 08-01-2024 ambulatory [facility] Start: 07-30-2024 ambulatory [facility] Start: 07-24-2024 End: 07-24-2024 ambulatory [facility] Start: 07-22-2024 ambulatory [facility] Start: 07-17-2024 ambulatory [facility] Start: 07-09-2024 End: 07-09-2024 Bamboo flowsheet Sidra Elisha DO Work Phone: [employer] [address] Start: 07-09-2024 End: 07-09-2024 Bamboo flowsheet Sidra Elisha DO Work Phone: [facility] [address] [facility] Start: 07-09-2024 End: 07-09-2024 Office outpatient visit 25 minutes Sidra Elisha DO Work Phone: [address] Comment on above: MOLINA (obstructive sle ep apnea) (Primary Dx); Hypersomnia; Primary insomnia; Snoring; Hypoxia Start: 07-09-2024 End: 07-09-2024 ambulatory SIDRA ELISHA Not Available Start: 04-29-2024 End: 04-29-2024 Telephone encounter Scanning Provider External [facility] Start: 04-22-2024 End: 04-22-2024 ambulatory DO Yas Linda Work Phone: [place] Work Phone: Start: 04-22-2024 End: 04-22-2024 Patient encounter procedure DO Yas Maddi Work Phone: [facility] Work Phone: Start: 03-01-2024 End: 03-01-2024 ambulatory DO Yas Linda Work Phone: [place] Work Phone: Start: 03-01-2024 End: 03-01-2024 Patient encounter procedure DO Yas Linda Work Phone: [facility] Work Phone: Start: 03-01-2024 Registered Recurring DO Jeremi in Ball Work Phone: [facility] Work Phone: Start: 02-08-2024 End: 02-08-2024 Office outpatient visit 25 minutes Avery Syed MD Work Phone: [facility] Comment on above: Stage 4 chronic kidn ey disease (CMS-HCC) (Primary Dx) Start: 02-01-2024 Non-patient / Non-visit DO Aguilar Linda Work Phone: [facility] Work Phone: Start: 01-26-2024 End: 01-26-2024 Telephone encounter Ketan Osullivan CMA [facility] Start: 12-19-2023 Non-patient / Non-visit DO Aguilar Linda Work Phone: [facility] Work Phone: Start: 12-18-2023 End: 12-18-2023 ambulatory Yas Linda Other [facility] Other Start: 12-18-2023 Telephone encounter Yas Linda [facility] Start: 12-18-2023 End: 12-18-2023 Patient encounter procedure DO Yas Linda Work Phone: [facility] Physician [facility] Work Phone: Start: 09-29-2023 End: 09-29-2023 ambulatory Yas Ball Other [employer] Other Start: 09-29-2023 Telephone encounter Yas Ball [facility] Start: 09-01-2023 End: 09-01-2023 ambulatory DO Yas Ball Work Phone: [facility] Work Phone: Start: 09-01-2023 End: 09-01-2023 Registered Recurring DO Yas Ball Work Phone: [facility] Work Phone: Start: 08-27-2023 End: 08-27-2023 ambulatory Yas Ball Other [employer] Other Start: 08-27-2023 Telephone encounter Yas Ball [facility] Start: 08-22-2023 End: 08-22-2023 ambulatory Yas Ball Other [employer] Other Start: 08-22-2023 Office outpatient vi sit 25 minutes Yas Ball [facility] Start: 07-03-2023 End: 07-03-2023 ambulatory Yas Ball Other [employer] Other Start: 07-03-2023 Telephone encounter Yas Ball [facility] Start: 07-01-2023 End: 07-01-2023 ambulatory Yas Ball Other [employer] Other Start: 07-01-2023 Telephone encounter Yas Ball [facility] Start: 06-22-2023 End: 06-22-2023 ambulatory Yas Ball Other [employer] Other Start: 06-22-2023 Telephone encounter Yas Ball [facility] Start: 06-12-2023 End: 06-12-2023 ambulatory Yas Ball Other [employer] Other Start: 06-12-2023 Telephone encounter Yas Ball [facility] Start: 04-26-2023 End: 04-26-2023 ambulatory Yas Linda Other [employer] Other Start: 04-26-2023 Telephone encounter Yas Linda [facility] Start: 04-20-2023 End: 04-20-2023 ambulatory Yas Linda Other [employer] Other Start: 04-20-2023 Office outpatient vi sit 25 minutes Yas Ball [facility] Start: 03-14-2023 End: 03-14-2023 ambulatory Yas Linda Other [employer] Other Start: 03-14-2023 Telephone encounter Yas Linda [facility] Start: 02-28-2023 End: 03-01-[address] DOCTOR EDWARDS Facility:[facility] Start: 02-15-2023 Telephone encounter Yas Linda [facility] Start: 02-15-2023 End: 02-16-[address] DOCTOR EDWARDS [employer] Other Start: 02-14-2023 End: 02-14-2023 ambulatory Yas Linda Other [employer] Other Start: 02-14-2023 Telephone encounter Yas Linda [facility] Start: 01-11-2023 End: 01-11-2023 ambulatory Yas Linda Other [employer] Other Start: 01-11-2023 Office outpatient vi sit 15 minutes Yas Linda [facility] Start: 01-02-2023 End: 01-03-2023 ambulatory AVERY SYED MD Facility:[facility] Start: 12-15-2022 End: 12-15-2022 ambulatory Yas Linda Other [employer] Other Start: 12-15-2022 Patient encounter procedure Yas Linda [facility] Start: 11-16-2022 End: 11-17-[address] YAS LINDA Facility:[facility] Start: 11-14-2022 End: 11-14-2022 ambulatory Yas Linda Other [employer] Other Start: 11-14-2022 Telephone encounter [facility] Start: 10-03-2022 End: 10-04-[address] YAS LINDA Facility:[facility] Start: 09-22-2022 End: 09-23-[address] DOCTOR EDWARDS Facility:[facility] Start: 09-09-2022 End: 09-10-[address] DOCTOR EDWARDS Facility:[facility] Start: 09-02-2022 End: 09-02-2022 ambulatory DO Yas Linda Work Phone: [facility] Work Phone: Start: 09-02-2022 End: 09-02-2022 Registered Recurring DO Yas Linda Work Phone: [facility] Start: 08-30-2022 End: 08-31-[address] YAS LINDA Facility:[facility] Start: 07-21-2022 End: 07-21-2022 Admission to same day surgery center DO Yas Linda Work Phone: [facility]-Digestive [facility] Start: 07-21-2022 End: 07-21-2022 ambulatory DO Yas Linda Work Phone: [facility] Work Phone: Start: 07-20-2022 End: 07-21-[address] YAS LINDA Facility:[facility] Start: 07-19-2022 End: 07-19-2022 ambulatory DO Yas Linda Work Phone: [facility] Work Phone: Start: 07-19-2022 End: 07-19-2022 Patient encounter procedure DO Yas Linda Work Phone: [facility] Start: 07-07-[address] ADAN Rodgers ility:[facility] Start: 06-21-2022 Adult health examination Gume Linda Other [employer] Other Start: 06-17-2022 Registered Recurring DO Jeremi mims Maddi [facility] Start: 06-03-2022 End: 06-03-2022 Registered Recurring DO Yas Linda [facility] Start: 05-31-2022 End: 05-31-2022 Patient encounter procedure DO Yas Linda Work Phone: [facility] [place] Start: 05-12-2022 End: 05-13-2022 ambulatory AVERY SYED MD Facility:[facility] Start: 05-10-2022 End: 05-11-2022 ambulatory FERMIN SANCHEZ Facility:[facility] Start: 04-26-2022 End: 04-27-[address] DOCTOR EDWARDS Facility:[facility] Start: 04-11-2022 End: 07-07-[address] YAS LINDA Facility:[facility] Start: 04-08-2022 End: 04-09-[address] YAS LINDA Facility:[facility] Start: 03-30-2022 End: 04-02-2022 Evaluation and management of inpatient GILMER SALAZAR Facility:[facility] Start: 03-25-2022 End: 03-26-2022 ambulatory ENRRIQUE MCKEON Facility:[facility] Start: 03-11-2022 ambulatory ENRRIQUE MCKEON Facility :[facility] Start: 03-06-2022 End: 03-07-2022 Evaluation and management of inpatient DR RUPINDER GRIGSBY . Facility:[facility] Start: 03-04-2022 End: 03-05-[address] YAS LINDA Facility:[facility] Start: 08-17-2021 End: 08-17-2021 Pre-procedure evaluation check Yas Linda Other [employer] Other Start: 08-15-2021 Bradycardia DO Yas Quezada ll Work Phone: [facility] Procedures Date Procedure Procedure Detail Performing Clinician Start: 05-30-2025 Carcinoembryonic antigen cea Chivo Keller DO Work Phone: Comment on above: Serial tumor marker results determined by assays using different manufacturers or methods may not be comparable. [facility] waiter/waitress room service and method: LASHELL UNICEL DXI, 2 SITE IMMUNOENZYMATIC SANDWICH ASSAY. Start: 05-30-2025 Carcinoembryonic antigen cea Chivo Keller DO Work Phone: Comment on above: Result Comment: Hakeem corley tumor marker results determined by assays using different manufacturers or methods may not be comparable. [facility] waiter/waitress room service and method: LASHELL UNICEL DXI, 2 SITE IMMUNOENZYMATIC ?SANDWICH? ASSAY. PERFORMED BY: [place] [id number] PATHOLOGIST COST ESTIMATING ENGINEER LOGAN TAYLOR M.D. Performed By: #### R ENAL, CBC #### [address] Start: 05-30-2025 Complete blood count with white cell differential, automated Chivo Keller DO Work Phone: Start: 05-30-2025 ERYTHROPOETIN (EPO), SERUM Chivo Keller DO Work Phone: Start: 05-30-2025 Measurement of carcinoembryonic antigen in body fluid specimen Yas Linda DO Work Phone: Comment on above: Serial tumor marker results determined by assays using different manufacturers or methods may not be comparable.[facility] waiter/waitress room service and method:LASHELL UNICEL DXI, 2 SITE IMMUNOENZYMATIC [...] manufacturers or methods may not be comparable. [facility] waiter/waitress room service and method: LASHLEL UNICEL DXI, 2 SITE IMMUNOENZYMATIC SANDWICH ASSAY. Start: 02-24-2025 Carcinoembryonic antigen cea Chivo Keller DO Work Phone: Comment on above: Result Comment: Seri al tumor marker results determined by assays using different manufacturers or methods may not be comparable. [facility] waiter/waitress room service and method: LASHELL DocumentCloudEL DXI, 2 SITE IMMUNOENZYMATIC ?SANDWICH? ASSAY. PERFORMED BY: [address] [id number] PATHOLOGIST COST ESTIMATING ENGINEER KRISTEL LU M.D. Performed By: #### R ENAL, CBC #### [address] Start: 02-24-2025 ERYTHROPOETIN (EPO), SERUM Chivo Keller DO Work Phone: Start: 02-24-2025 Measurement of carcinoembryonic antigen in body fluid specimen Yas Linda DO Work Phone: Comment on above: Serial tumor marker results determined by assays using different manufacturers or methods may not be comparable.[facility] waiter/waitress room service and method:LASHELL DocumentCloudEL DXI, 2 SITE IMMUNOENZYMATIC SANDWICH ASSAY. Start: 02-24-2025 CT of abdomen and pe lvis without contrast Yas Linda DO Work Phone: Start: 02-24-2025 CT of chest without contrast Yas Linda DO Work Phone: Start: 01-14-2025 Plain X-ray of right hip Yas Linda DO Work Phone: Start: 01-02-2025 Screening for occult blood in feces Yas Linda DO Work Phone: Start: 12-31-2024 Antibody screen Shannon Linda Comment on above: Order Comment: Trans fuse now? Y Number of units to transfuse now? 2 Transfuse now? Y Number of units to transfuse now? 1 Transfuse now? Y Number of units to transfuse now? 1 Transfuse now? Y Number of units to transfuse now? 1 Result Comment: PERF ORMED BY: [address] [id number] PATHOLOGIST COST ESTIMATING ENGINEER KRISTEL LU M.D. Start: 12-30-2024 Duplex scan of lower limb veins Yas Ball DO Work Phone: Start: 12-30-2024 Plain X-ray [...] DO Work Phone: Start: 12-23-2024 Antibody screen Bernardaami n Maddi Comment on above: Order Comment: expir ing BB band Transfuse now? Y Number of units to transfuse now? 1 Transfuse now? Y Number of units to transfuse now? 1 Result Comment: PERF ORMED BY: [facility] [address] [place] [address] PATHOLOGIST COST ESTIMATING ENGINEER KRISTEL LU M.D. Start: 02-22-2024 Serum immunofixation [...] Performed By: #### F T4, PSASC #### [facility] [address] [address] [address] Benito Schwartz Start: 08-31-2022 CT of [...] 05-19-2018 Laboratory test resu lt abnormal Yas [employer] Other Start: 04-25-2017 Screening for malign ant neoplasm of colon [facility] [employer] Other Start: 08-24-2016 Pre-surgery evaluation Yas [employer] Other Start: 08-24-2016 Preoperative cardiov ascular examination Yas [employer] Other Start: 01-01-2015 Screening for malign ant neoplasm of prostate Yas [employer] Other Depression screening Benjami n [employer] Other SARS Antigen (LFIA) DO Gume min Ball Work Phone: Screening for malign ant neoplasm of prostate Yas [employer] Other Plan of Treatment Date Care Activity Detail Author Start: 08-27-2025 End: 08-27-2025 Patient encounter procedure 08/27/2025 9:45 AM EST Procedure [facility] [address] [place] [id number] Emely Batista, DPCanelo [address] [place] [address] [facility] Start: 08-08-2025 Tobacco Screening Tobacco Screening [facility] Start: 07-07-2025 End: 07-07-2025 Patient encounter procedure 07/07/2025 10:30 AM EDT Office Visit [facility] [address] [place] [address] Sidra Deleon DO [address] [place] [address] [facility] Start: 06-16-2025 Influenza vaccination [facility] Start: 05-26-2025 End: 05-26-2025 ambulatory [facility] [...] [address] [place] [address] Nikkie Sánchezissa, IMAGE EDITOR [facility] Start: 05-09-2025 End: 05-09-2025 ambulatory 05/09/2025 12:30 PM EDT Treatment [facility] [address] [facility] [address] [place] [address] Nikkie Sánchezissa, IMAGE EDITOR Arrived [facility] Comment on above: Arrived Start: 05-09-2025 End: 05-09-2025 ambulatory 05/09/2025 10:30 AM EDT Treatment [facility] [address] [facility] [address] [place] [address] Nikkie Sánchezissa, IMAGE EDITOR [facility] Start: 05-07-2025 End: 05-07-2025 [...] Treatment [facility] [address] [facility] [address] [place] [address] Nikkie Sánchezissa, IMAGE EDITOR [facility] Start: 04-21-2025 End: 04-21-2025 [...] [address] [place] [address] Kenny Aldana, PT [address] [place] [address] [facility] Start: 04-14-2025 End: 04-14-2025 [...] [address] [place] [address] Kilo Glaser PTA [facility] Start: 03-21-2025 End: 03-21-2025 ambulatory [facility] Comment on above: Greater trochanteric bursitis of left hi p (Primary Dx); History of total hip arthroplasty, right; Left hip pain Start: 03-19-2025 End: 03-19-2025 ambulatory 03/19/2025 3:00 PM EDT Evaluation [facility] [address] [place] [address] Kenny Aldana, PT [address] [place] [address] Arrived [facility] Comment on above: Arrived Start: 03-05-2025 End: 03-05-2025 Clinical Support 03/05/2025 1:00 PM EDT Clinical Support [facility] [address] [facility] [address] [place] [id number] Marilin Clay, [facility] [address] [facility] [place] [address] [facility] Start: 02-25-2025 Plain x-ray of pelvis and lower extremity [facility] Start: 02-25-2025 XR Pelvis and Hip - bilateral Views [facility] Start: 02-21-2025 End: 02-21-2025 Patient encounter procedure 02/21/2025 10:45 AM EDT Office Visit [facility] [address] [place] [phone] Emely Batista, [place] [address] [place], [place] [id number] Arrived [facility] Comment on above: Arrived Start: 02-07-2025 Adult BMI Screening Adult BMI Screening [facility] Start: 02-06-2025 End: 08-08-2025 Basic metabolic 2000 panel - Serum or Plasma Basic Metabolic Panel Lab Routine Stage 4 chronic kidney disease ([facility]) Expected: 02/06/2025 (Approximate), Expires: 08/08/2025 [facility] Work Phone: Comment on above: Expected: 02/06/2025 (Approximate), Expi res: 08/08/2025 Start: 02-06-2025 End: 08-08-2025 CBC panel - Blood by Automated count CBC without diff Lab Routine Stage 4 chronic kidney disease ([facility]) Expected: 02/06/2025 (Approximate), Expires: 08/08/2025 [facility] Comment on above: Expected: 02/06/2025 (Approximate), Expi res: 08/08/2025 Start: 02-06-2025 End: 08-08-2025 Magnesium [Mass/volume] in Serum or Plasma Magnesium Lab Routine Stage 4 chronic kidney disease ([facility]) Expected: 02/06/2025 (Approximate), Expires: 08/08/2025 [facility] Comment on above: Expected: 02/06/2025 (Approximate), Expi res: 08/08/2025 Start: 02-06-2025 End: 08-08-2025 Parathyroid Hormone, intact Parathyroid Hormone, intact Lab Routine Stage 4 chronic kidney disease ([facility]) Expected: 02/06/2025 (Approximate), Expires: 08/08/2025 [facility] Comment on above: Expected: 02/06/2025 (Approximate), Expi res: 08/08/2025 Start: 02-06-2025 End: 08-08-2025 Phosphate [Mass/volume] in Serum or Plasma Phosphorus Lab Routine Stage 4 chronic kidney disease ([facility]) Expected: 02/06/2025 (Approximate), Expires: 08/08/2025 [employer] Comment on above: Expected: 02/06/2025 (Approximate), Expi res: 08/08/2025 Start: 02-06-2025 End: 08-08-2025 Protein creat ratio Protein creat ratio Lab Routine Stage 4 chronic kidney disease ([facility]) Expected: 02/06/2025 (Approximate), Expires: 08/08/2025 [facility] Comment on above: Expected: 02/06/2025 (Approximate), Expi res: 08/08/2025 Start: 01-14-2025 Plain X-ray of right hip [facility] Start: 01-14-2025 XR Hip - right 2 Views [facility] Start: 01-10-2025 [facility] Start: 01-03-2025 Referral to aluminum boat assembly supervisor [facility] Start: 12-28-2024 Referral to pearl maker [facility] Start: 12-27-2024 Hospital admission [facility] Start: 12-27-2024 Referral to clinical tobacco conditioner [facility] Start: 12-27-2024 [facility] Start: 12-24-2024 Referral to pearl maker [facility] Start: 12-24-2024 Referral to rehabilitation physician [facility] Start: 12-22-2024 Referral to Tank Car Mechanic [facility] Start: 12-22-2024 Hospital admission [facility] Start: 12-21-2024 Consultation [facility] Start: 12-21-2024 [facility] Start: 12-04-2024 End: 12-04-2024 Clinical Support 12/04/2024 1:00 PM EST Clinical Support [facility] [address] [place] [phone] Marilin Clay, [facility] [address] [place] [address] [facility] Start: 10-05-2024 Adult BMI Screening Adult BMI Screening [facility] [employer] [facility] Start: 08-21-2024 End: 08-21-2024 Clinical Support [facility] Comment on above: Arrived Start: 08-15-2024 End: 08-08-2025 Protein creat ratio Protein creat ratio Lab Routine Stage 4 chronic kidney disease (CMS-HCC) Expected: 08/15/2024 (Approximate), Expires: 08/08/2025 [facility] on above: Expected: 08/15/2024 (Approximate), Expi res: 08/08/2025 Start: 08-08-2024 End: 08-08-2024 Patient encounter procedure 08/08/2024 10:30 AM EDT Office Visit [facility] [address] [place] [phone] Avery Syed MD [address] [place] [address] [facility] Start: 07-09-2024 End: 07-09-2024 Patient encounter procedure 07/09/2024 10:30 AM EDT Office Visit [facility] [address] [place] [phone] Sidra Deleon DO [address] [place] [address] [facility] Comment on above: Arrived Start: 06-16-2024 Influenza vaccination [facility] Start: 06-02-2024 End: 01-31-2025 Basic metabolic 2000 panel - Serum or Plasma Basic Metabolic Panel Lab Routine Stage 4 chronic kidney disease ([facility]) Expected: 06/02/2024, Expires: 01/31/2025 [facility] Work Phone: Comment on above: Expected: 06/02/2024, Expires: Start: 06-02-2024 End: 01-31-2025 CBC panel - Blood by Automated count CBC without diff Lab Routine Stage 4 chronic kidney disease ([facility]) Expected: 06/02/2024, Expires: 01/31/2025 [employer] Comment on above: Expected: 06/02/2024, Expires: Start: 06-02-2024 End: 01-31-2025 Magnesium [Mass/volume] in Serum or Plasma Magnesium Lab Routine Stage 4 chronic kidney disease ([facility]) Expected: 06/02/2024, Expires: 01/31/2025 [facility] Comment on above: Expected: 06/02/2024, Expires: Start: 06-02-2024 End: 01-31-2025 Parathyroid Hormone, intact Parathyroid Hormone, intact Lab Routine Stage 4 chronic kidney disease ([facility]) Expected: 06/02/2024, Expires: 01/31/2025 [facility] Comment on above: Expected: 06/02/2024, Expires: Start: 06-02-2024 End: 01-31-2025 Phosphate [Mass/volume] in Serum or Plasma Phosphorus Lab Routine Stage 4 chronic kidney disease ([facility]) Expected: 06/02/2024, Expires: 01/31/2025 [facility] Comment on above: Expected: 06/02/2024, Expires: Start: 06-02-2024 End: 01-31-2025 Protein creat ratio Protein creat ratio Lab Routine Stage 4 chronic kidney disease ([facility]) Expected: 06/02/2024, Expires: 01/31/2025 [facility] Comment on above: Expected: 06/02/2024, Expires: Start: 02-08-2024 End: 02-08-2024 Patient encounter procedure 02/08/2024 10:30 AM EDT Office Visit [facility] [address] [place] [address] Avery Syed MD [address] [place] [address] [facility] Start: 11-20-2023 COVID-19 Vaccine () COVID-19 Vaccine ( season) [facility] Start: 07-21-2022 [facility] Start: 06-17-2022 Registered Recurring Colon cancer [facility] Start: 06-17-2022 [facility] Start: 06-10-2022 [facility] Start: 02-22-2022 CT abdomen pelvis w con CT abdomen pelvis w con [facility] Start: 02-22-2022 CT chest w con CT chest w con [facility] Start: 02-22-2022 [facility] Start: 07-16-2014 Pneumococcal Vaccine: 65+ Years (2 of 2 - PPSV23 or PCV20) Pneumococcal Vaccine: 65+ Years (2 of 2 - PPSV23 or PCV20) [facility] Start: 07-16-2014 Pneumococcal Vaccine: 65+ Years (2 of 2 - PPSV23) Pneumococcal Vaccine: 65+ Years (2 of 2 - PPSV23) [facility] Start: 2007 Fall Risk Screening Fall Risk Screening [facility] Start: 1992 Administration of varicella zoster vaccine Zoster (Shingles) Vaccine (1 of 2) [facility] Start: 1961 DTaP,Tdap and Td Vaccines (1 - Tdap) DTaP,Tdap and Td Vaccines (1 - Tdap) [facility] Start: 1954 Depression Screening Depression Screening [facility] Start: 1954 Tobacco Screening Tobacco Screening [facility] Start: 1942 Medicare Annual Wellness Visit Medicare Annual Wellness Visit [facility] Carcinoembryonic Ag [Mass/volume] in Serum or Plasma [facility] Work Phone: Carcinoembryonic Ag [Mass/volume] in Serum or Plasma [facility] Carcinoembryonic Ag [Mass/volume] in Serum or Plasma [facility] Comprehensive metabo lic 1999 panel - Serum or Plasma [facility] Work Phone: Comprehensive metabo lic 1999 [...] panel Lab STAT 02/24/2025 9:46 AM EDT [facility] Work Phone: Comprehensive metabo lic 1999 panel - Serum or Plasma [facility] Comprehensive metabo lic 1999 panel - Serum or Plasma Comprehensive metabolic panel Lab Routine 05/30/2025 10:59 AM EDT [facility] Work Phone: Comprehensive metabo lic 1999 panel - Serum or Plasma [facility] CT Abdomen and Pelvi s W contrast IV [facility] Work Phone: CT Abdomen and Pelvi s W contrast IV [facility] CT Abdomen and Pelvi s W contrast IV [facility] CT Abdomen and Pelvi s W contrast IV [facility] CT Abdomen and Pelvi s W contrast IV [facility] CT Abdomen and Pelvi s WO contrast [facility] Work Phone: CT Abdomen and Pelvi s WO contrast [facility] CT Abdomen and Pelvi s WO contrast [facility] CT Chest W contrast IV [facility] Work Phone: CT Chest W contrast IV [facility] CT Chest W contrast IV [facility] CT Chest W contrast IV [facility] CT Chest W contrast IV [facility] CT Chest WO contrast [facility] Work Phone: CT Chest WO contrast [facility] Chest WO contrast [facility] Erythropoietin (EPO) [Units/volume] in Serum or Plasma [facility] Erythropoietin (EPO) [Units/volume] in Serum or Plasma [facility] Erythropoietin (EPO) [Units/volume] in Serum or Plasma [facility] Ferritin [Mass/volum e] in Serum or Plasma [facility] Iron and Iron bindin g capacity panel - Serum or Plasma Iron and TIBC Lab STAT 02/24/2025 9:46 AM EDT [facility] Iron and Iron bindin g capacity panel - Serum or Plasma Iron and TIBC Lab Routine 05/30/2025 10:59 AM EDT [facility] Patient Education [facility] Work Phone: Patient referral [facility] Work Phone: Renal function 2000 panel - Serum or Plasma [facility] Renal function 2000 panel - Serum or Plasma [facility] Renal function 2000 panel - Serum or Plasma [facility] End: 01-31-2025 Urinalysis Urinalysis Lab Routine Stage 4 chronic kidney disease ([facility]) 1 Occurrences starting 02/08/2024 until 01/31/2025 [employer] Comment on above: 1 Occurrences starting 02/08/2024 until 01/31/2025 End: 08-08-2025 Urinalysis Urinalysis Lab Routine Stage 4 chronic kidney disease ([facility]) 1 Occurrences starting 08/08/2024 until 08/08/2025 [employer] Comment on above: 1 Occurrences starting 08/08/2024 until 08/08/2025 [facility] Immunizations Immunization Date Immunization Notes Care Provider [facility] 07-08-2025 influenza, high dose seasonal, preservative-free Yas Ball DO Work Phone: [facility] 07-22-2024 COVID-19 (PFIZER) 12Y and older Yas Ball DO Work Phone: [facility] 07-15-2024 influenza, high dose seasonal, preservative-free Yas Ball DO Work Phone: [facility] 07-15-2024 influenza virus vaccine, unspecified formulation Marilin Clay CCC-A Work Phone: [facility] 07-20-2023 COVID-19 (PFIZER) 12Y and older Yas Ball DO Work Phone: [facility] 07-11-2023 Influenza vaccine, quadrivalent, adjuvanted Yas Ball DO Work Phone: [facility] 07-11-2023 influenza virus vaccine, unspecified formulation Ketan Osullivan [facility] 07-10-2022 COVID-19 Pfizer (bivalent) Yas Linda Other [facility] 07-10-2022 COVID-19 Pfizer (Pediatric) Yas Linda Other [facility] 07-04-2022 Influenza vaccine, quadrivalent, adjuvanted Yas Linda DO Work Phone: [facility] 07-04-2022 influenza virus vaccine, split virus (incl. purified surface antigen) Yas Linda Other [employer] Other 07-04-2022 influenza virus vaccine, unspecified formulation DO Yas Linda Work Phone: [facility] 07-04-2022 influenza, high dose seasonal, preservative-free Yas Linda Other [employer] Other 02-07-2022 COVID-19 Pfizer Yas Cason loli Other [facility] 02-07-2022 COVID-19 Vaccine Pfi zer - Documentation Purposes Only Yas Linda Other [facility] 07-28-2021 influenza virus vaccine, split virus (incl. purified surface antigen) Yas Linda Other [employer] Other 07-28-2021 influenza virus vaccine, unspecified formulation DO Yas Linda Work Phone: [facility] 07-28-2021 Seasonal trivalent influenza vaccine, adjuvanted, preservative free Yas Linda DO Work Phone: [facility] 07-15-2021 COVID-19 mRNA, Comirnaty (Pfizer) DO Yas Linda Work Phone: [facility] 12-03-2020 COVID-19 mRNA, Comirnaty (Pfizer) DO Yas Linda Work Phone: [facility] 11-12-2020 COVID-19 mRNA, Comirnaty (Pfizer) DO [employer] Work Phone: [facility] 06-30-2020 influenza virus vaccine, split virus (incl. purified surface antigen) Yas [employer] Other [facility] [employer] Other 06-30-2020 influenza virus vaccine, unspecified formulation DO [employer] Work Phone: [facility] 07-19-2019 influenza virus vaccine, split virus (incl. purified surface antigen) [employer] Other [facility] Other 07-19-2019 influenza virus vaccine, unspecified formulation DO [employer] Work Phone: [facility] 07-16-2019 influenza virus vaccine, unspecified formulation Yas Eventap DO Work Phone: [facility] 07-17-2018 influenza virus vaccine, split virus (incl. purified surface antigen) Yas [employer] Other [facility] Other 07-17-2018 influenza virus vaccine, unspecified formulation DO [employer] Work Phone: [facility] 07-17-2018 Seasonal trivalent influenza vaccine, adjuvanted, preservative free Yas Eventap DO Work Phone: [facility] 12-25-2017 diphtheria, tetanus toxoids and acellular pertussis vaccine, unspecified formulation [employer] Other [facility] 07-24-2017 influenza virus vaccine, split virus (incl. purified surface antigen) Yas [employer] Other [facility] Other 07-24-2017 influenza virus vaccine, unspecified formulation DO [employer] Work Phone: [facility] 07-24-2017 Seasonal trivalent influenza vaccine, adjuvanted, preservative free Yas [employer] DO Work Phone: [facility] 07-12-2016 influenza virus vaccine, split virus (incl. purified surface antigen) Yas Linda Other [facility] Other 07-12-2016 influenza virus vaccine, unspecified formulation DO Yas Linda Work Phone: [facility] 07-12-2016 influenza, high dose seasonal, preservative-free Yas Linda DO Work Phone: [facility] 05-26-2016 pneumococcal Conjuga te, unspecified formulation; Translations: [Need for prophylactic vaccination against Streptococcus pneumoniae (pneumococcus)] Yas Linda Other [facility] Other 05-26-2016 pneumococcal conjuga te vaccine, 13 valent Yas Linda Other [facility] 07-08-2015 influenza virus vaccine, split virus (incl. purified surface antigen) Yas Linda Other [facility] Other 07-08-2015 influenza virus vaccine, unspecified formulation DO Yas Linda Work Phone: [facility] 08-02-2013 tetanus and diphther ia toxoids, adsorbed, preservative free, for adult use (5 Lf of tetanus toxoid and 2 Lf of diphtheria toxoid) Yas Linda Other [facility] 08-02-2013 pneumococcal polysaccharide vaccine, 23 valent Yas Linda Other [facility] 07-16-2013 pneumococcal conjuga te vaccine, 13 valent Sidra Deleon DO Work Phone: [facility] 06-27-2012 tetanus and diphther ia toxoids, adsorbed, preservative free, for adult use (5 Lf of tetanus toxoid and 2 Lf of diphtheria toxoid) Yas Linda Other [facility] 09-28-2009 novel [id number], preservative-free, injectable Yas Linda DO Work Phone: [facility] Payers Date Payer Category Payer Unknown AARP AARP [id number] 2022-Present [address] [place] [address] [id number] 2021 Managed Care Other (unspecified) [facility] [id number] 2021 Private Health Insurance [id number] .[id number] .[id number] 2007 Medicare [id number] 1.13.693.2 .[id number] 1959 Medicare [id number] 1959 Self-pay [id number] 1959 Unknown [id number] 1942 Unknown [id number] 2.16.840.1.647340.3.579.2 .647 1942 Unknown [id number] 2.16.840.1.074586.3.579.2 .593 1942 Unknown [id number] 2.16.840.1.022349.3.579.2 .593 1942 Unknown [id number] 2.16.840.1.080823.3.579.2 .593 1942 Unknown [id number] 2.16.840.1.735545.3.579.2 .593 1942 Unknown [id number] 2.16.840.1.078404.3.579.2 .593 194 Unknown [id number] 2.16.840.1.464235.3.579.2 .593 1942 Unknown [id number] 2.16.840.1.379020.3.579.2 .593 1942 Unknown [id number] 2.16.840.1.754211.3.579.2 .593 1942 Unknown [id number] 2.16.840.1.710369.3.579.2 .593 1942 Unknown [id number] 2.16.840.1.016953.3.579.2 .593 1942 Unknown [id number] 2.16.840.1.106745.3.579.2 .593 1942 Unknown [id number] 2.16.840.1.506495.3.579.2 .593 1942 Unknown [id number] 2.16.840.1.341799.3.579.2 .593 1942 Unknown [id number] 2.16.840.1.109395.3.579.2 .593 1942 Unknown [id number] 2.16.840.1.395386.3.579.2 .593 1942 Unknown [id number] 2.16.840.1.856188.3.579.2 .593 1942 Unknown [id number] 2.16.840.1.190985.3.579.2 .593 194 Unknown [id number] 2.16.840.1.676905.3.579.2 .593 1942 Unknown [id number] 2.16.840.1.264582.3.579.2 .593 1942 Unknown [id number] 2.16.840.1.866809.3.579.2 .593 1942 Unknown [id number] 2.16.840.1.179805.3.579.2 .593 1942 Unknown [id number] 2.16.840.1.645491.3.579.2 .125 1942 Unknown [id number] 2.16.840.1.201044.3.579.2 .125 1942 Unknown [id number] 2.16.840.1.663402.3.579.2 .125 1942 Unknown [id number] 2.16.840.1.026590.3.579.2 .125 1942 Unknown [id number] 2.16.840.1.955417.3.579.2 .125 1942 Unknown [id number] 2.16.840.1.381255.3.579.2 .1258 1942 Unknown [id number] 2.16.840.1.692973.3.579.2 .125 1942 Unknown [id number] 2.16.840.1.053724.3.579.2 .1258 1942 Unknown [id number] 2.16.840.1.777560.3.579.2 .125 1942 Unknown [id number] 2.16.840.1.688834.3.579.2 .125 1942 Unknown [id number] 2.16.840.1.648299.3.579.2 .125 1942 Unknown [id number] 2.16.840.1.384554.3.579.2 .125 1942 Unknown [id number] 2.16.840.1.621831.3.579.2 .125 1942 Unknown [id number] 2.16.840.1.922289.3.579.2 .125 1942 Unknown [id number] 2.16.840.1.930627.3.579.2 .1258 1942 Unknown [id number] 2.16.840.1.631870.3.579.2 .1258 1942 Unknown [id number] 2.16.840.1.064337.3.579.2 .1258 1942 Unknown [id number] 2.16.840.1.774755.3.579.2 .1258 1942 Unknown [id number] 2.16.840.1.135127.3.579.2 .1258 1942 Unknown [id number] 2.16.840.1.480311.3.579.2 .1258 1942 Unknown [id number] 2.16.840.1.044016.3.579.2 .1258 1942 Unknown [id number] 2.16.840.1.430589.3.579.2 .1258 1942 Unknown [id number] 2.16.840.1.271660.3.579.2 .1258 1942 Unknown [id number] 2.16.840.1.106761.3.579.2 .1258 1942 Unknown [id number] 2.16.840.1.285980.3.579.2 .1258 1942 Unknown [id number] 2.16.840.1.277661.3.579.2 .1258 1942 Unknown [id number] 2.16.840.1.276227.3.579.2 .1258 1942 Unknown [id number] 2.16.840.1.069402.3.579.2 .1258 1942 Unknown [id number] 2.16.840.1.397509.3.579.2 .1258 1942 Unknown [id number] 2.16.840.1.757761.3.579.2 .1259 1942 Unknown [id number] 2.16.840.1.414456.3.579.2 .9 1942 Unknown [id number] 2.16.840.1.139453.3.579.2 .1259 1942 Unknown [id number] 2.16.840.1.481729.3.579.2 .9 1942 Unknown [id number] 2.16.840.1.941078.3.579.2 .1259 1942 Unknown [id number] 2.16.840.1.251680.3.579.2 .1259 Unknown [id number] 2.16.840.1.630316.3.579.2 .593 Unknown [id number] 2.16.840.1.243917.3.579.2 .531 Social History Date Type Detail Facility Start: 06-03-2022 End: 01-20-2025 Tobacco smoking status FLIS Ex-smoker (finding) [facility] Start: 1940 Sex Assigned At Male [facility] Start: 07-08-2024 End: 02-21-2025 Sex Assigned At [facility] [employer] Other History of tobacco use [facility] of tobacco use [facility] Start: 06-01-2023 End: 07-09-2024 Tobacco use and exposure Smokeless tobacco non-user [facility] Start: 07-09-2024 End: 02-21-2025 Alcoholic beverage intake Current drinker of alcohol (finding) [facility] Start: 07-08-2024 End: 02-21-2025 History of Social function [facility] Frequency of Alcohol Consumption Not on file [facility] How many standard drinks containing alcohol do you have on a typical day? 1 or 2 [facility] How often do you hav e 6 or more drinks on 1 occasion? Never [facility] Start: 07-08-2024 Alcohol Comment caffeine: none [facility] Start: 1940 Sex assigned at Not on file [facility] Start: 08-18-2023 Gender identity Identifies as male gender (finding) [facility] Start: 10-05-2023 End: 08-08-2024 Alcoholic beverage intake Ex-drinker (finding) [facility] [employer] [facility] Start: 05-21-2015 End: 03-25-2025 Sex Male (finding) [facility] Start: 12-25-2024 Tobacco smoking status NHIS Never smoked tobacco (finding) [facility] Start: 12-27-2024 End: 01-09-2025 SDOH Follow up SDOH Follow up [facility] Work Phone: Medical Equipment Procedure Code Equipment Code Equipment Origin al Text Equipment Identifier Dates Arthroplasty, hip, bipolar ()[id number]( [id number] FDA Start: 12-23-2024 Arthroplasty, hip, bipolar ()[id number] FDA Start: 12-23-2024 Blood Sugar Diagnostic [...] Facility 01-10-2025 Functional status Patient at Baseline [facility] Work Phone: 12-21-2024 Functional status Patient at Baseline [facility] Work Phone: Mental Status Date Assessment Result Facility 01-10-2025 Cognitive function Patient at Baseline [facility] Work Phone: 12-21-2024 Cognitive function Patient at Baseline [facility] Work Phone: Clinical Notes 08-31-2021 to 05-27-2025 Emely Gurwinder Batista DPM - 05/26/2025 10:15 AM EDT Note Date & Type Note Facility 05-27-[address] [facility] 05-27-2025 Note [place] Electrophysiology Consult Note Reason for visit: Afib and dilated CMP. 05/27/25 Patient is here today to discuss possible ablation or watchman. Patient states he is doing well. He has fatigue. He appears to keep SR based on last device check. Not on AAD as Amio was stopped by Dr OVALLE due to thyroid issue. 09/10/24 Patient underwent HEAD TELLER-D upgrade procedure on 06/12/2023. Subsequent echocardiogram in [...] infrahisian disease. He was brought back to [facility] on 02/12/2020 due to what was [...] weakness and light-headedness. (more content not included)... [facility] 05-26-2025 History of Present illness Narrative Images [...] crush, chew, or split., Disp: , Rfl: Jjkcscbxmlg-Ihvjwcuqb-Zhmccd (Trelegy Ellipta) 200-62.5-25 MCG/ACT aerosol powder , [...] utilizing a nail nipper and electric bur hull grinder without incident. I have discussed the [...] Emely Batista DPM documented in this encounter [facility] 04-25-2025 Note Provider called lincoln ent and d/w his regarding possible fluid retention/overload no remote device interrogation. State that he just had appointment with Dr Ortiz last week and overall is feeling fine without s/s of fluid overload. D/W them to call office for any concerns or questions- they voiced understanding. Fermin Sanchez [facility] Cardiology Available 7a-3pm via Epic Chat [phone] [facility] 04-17-2025 Evaluation note Diagnosis Onset Date Resolution Anemia of renal disease acute J 2024 [...] Colon cancer deleted June 06, 2025 12:43pm [place] Work Phone: 1([phone] Evaluation note* Diagnosis Onset Date Resolution Status Admit Date Anemia of renal disease acute J 2024 [...] hip david bonnie April 29, 2025 9:55am Acute blood loss anemia acute A ugust 2024 12:41pm Colon cancer acute June 06, 2025 12:41pm Secondary hyperparathyroidism acute June 06, 2025 12:41pm Colon cancer deleted June 06, 2025 12:43pm Hyposomnia acute June 10:20am Hypoxia acute June 10:20am Obstructive sleep apnea acute S epmb2024 10:20am Primary insomnia acute Junembe r 2024 10:20am Snoring acute June 10:20am Acute blood loss anemia acute S epmber 2024 9:17am Chronic bronchitis, simple acute July 08, 2025 9:17am Chronic HFrEF (heart failure with reduced ejection fraction) acute July 08, 2025 9:17am Chronic kidney disease acute Se ptember 2024 9:17am Colon cancer acute July 082024 9:17am Hypercholesteremia acute Septem ayleen 2024 9:17am 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 July 08, 2025 9:17am Nonischemic dilated cardiomyopathy acute July 08, 2025 9:17am [place] Work Phone: 1([phone] 349-156607-01-2025 History of Present illness Narrative* Kenny Aldana, PT - 04/15/2025 8:30 AM EDT Images from the original note [...] control, gait per exercise grid bilateral LE hipStrength, Endurance, Flexibility, ROM, HEP, Neural Mobilization, Power, and Core Stability Therapeutic Activity: ( 23 minutes supervised ) Exercises to improve dynamic activities, functionaltasks, functional mobility to return to prior activity [...] giat pattern still present. Good effort with allther ex but slow progress toward PT goals. Pt will benefit from skilled PT services focusing on bilateral hip strength, gait and mobility. Outcome Measure: in chart (04/09/25) Short Term Goal: To be met in 2 weeks Goal 1: Pt to be instructed in home exercise program. Taxation Accountant Goals: To be met in 10 weeks [...] Please sign below. Date: documented in this encounterCooper County Memorial [id number] NoteUT Cardiology [facility] Subjective Delano Ren is a [...] Yes Comment: OCCASIONAL Drug use: Never HPI Delano is seen in follow-up. He is [...] Pitting Edema present. Comm (more content not included)...[facility]06-16-2025 History of Present illness Narrative* Kenny Aldana, PT - 03/31/2025 1:00 PM EDT Images [...] to be instructed in home exercise program. Penitentiary Goals: To be met in 10 weeks [...] Please sign below. Date: documented in this encounterCooper County Memorial [id number] Evaluation note* Diagnosis Onset Date Resolution Status Admit Date Skin tear of left forearm wi thout [...] 2024 8:51am Colon cancer acute April 07, 8:51am History of thyrotoxicosis acute April 07, [...] hip david bonnie April 29, 2025 9:55am Acute blood loss anemia acute A ugust 2024 12:41pm Colon cancer acute June 06, 2025 12:41pm Secondary hyperparathyroidism acute June 06, 2025 12:41pm Colon cancer deleted June 06, 2025 12:43pm [place] Work Phone: 1([phone] 213-351506-04-2025 History of Present illness Narrative* Kenny Aldana, [...] to be instructed in home exercise program. Penitentiary Goals: To be met in 10 weeks [...] Please sign below. Date: documented [place] [id number] Evaluation note* Diagnosis Onset Date Resolution Status [...] 2024 8:51am Colon cancer acute April 07, 8:51am History of thyrotoxicosis acute April 07, [...] hip david bonnie April 29, 2025 9:55am [place] Work Phone: 1([phone]) 851-721005-09-2025 History of Present illness Narrative* Emely Batista DPM - 02/21/2025 10:45 AM EDT Images [...] History Past Medical History: Diagnosis Date A-fib ([facility]) Chronic kidney disease, stage 4 (severe) ([facility]) Colon cancer ([facility]) 08/2021 COPD (chronic obstructive pulmonary disease) ([facility]) Diabetes mellitus type II, controlled ([facility]) Gout HTN (hypertension) ([facility]) Hypercholesteremia ([facility]) Hypothyroid ([facility]) Sleep apnea Medications Current Outpatient Medications: amiodarone [...] mg by mouth Daily, Disp: , Rfl: Egjregbmslo-Edizzomim-Jqxeby (Trelegy Ellipta) 200-62.5-25 MCG/ACT aerosol powder , [...] utilizing a nail nipper and electric bur hull grinder without incident. I have discussed the [...] understanding. Emely Batista DPM documented in this encounterCooper County Memorial [id number] NotePatients called with his blood pressures over the last 2 weeks Patient is currently holding Hydralazine, Amlodipine and Isosorbide. 143/82 135/67 130/73 121/70 119/61 141/67 148/85 131/69 149/79 112/79 134/75 130/78 133/77 130/69 140/68 147/[address] [facility]2025 NotePatients has been informed - New script sent out for Hydralazine 10 mg BID. will call with updated BP's in 2 weeks[facility] NotePatient is here for a 3 [...] isosorbide have been put hold by the pearl maker due to low blood pressure. Patient still has samples of Eliquis and will be starting Xarelto. Review of Systems All other systems reviewed and are negative.[facility] 01-28-2025 NoteCardiovascular Medicine [facility] SUBJECTIVE Chief Complaint Patient presents with [...] isosorbide have been put hold by the pearl maker due to low blood pressure. Patient still [...] disease (CMS/HCC) Bacteremia Chronic systolic heart failure ([facility]/H[facility]) Dyslipidemia Edema of lower extremity Hyperlipidemia Hypertensive disorder Left ventricular systolic dysfunction Osteomyelitis of vertebra ([facility]/HCC) Paroxysmal atrial flutter ([facility]/HCC) Proteinuria Type 2 diabetes mellitus ([facility]/HCC) COPD (chronic obstructive pulmonary disease) ([facility]/HCC) Dilated cardiomyopathy ([facility]) Statin intolerance Stage 4 chronic kidney disease ([facility]/H[facility]) Chronic bronchitis, simple ([facility]/H[facility]) Chronic venous insufficiency Constipation Hyperlipidemia type II Hypothyroidism due to medication Impaired mobility and activities of daily living Iron deficiency anemia Colon cancer ([facility]/HCC) Mucopurulent chronic bronchitis ([facility]/HCC) Obstructive sleep apnea Pacemaker A-fib ([facility]) Psoas abscess, right ([facility]) Pulmonary hypertension ([facility]/HCC) Thyrotoxicosis Type 2 diabetes mellitus with hyperglycemia ([facility]) Hypersomnia Primary insomnia Past Medical History: Diagnosis Date Arrhythmia CHF (congestive heart failure) ([facility]) Chronic kidney disease Family History Problem Relation Name Age of Onset Diabetes Mother Heart disease Father Glaucoma Brother Diabetes Maternal Grandmother Clotting disorder Other Social History Tobacco Use Smoking status: Former Current packs/day: 0.00 Types: Cigarettes Quit date: 1981 Years since quittin.3 Smokeless tobacco: Never Substance Use Topics Alcohol use: Yes Comment: OCCASIONAL Drug use: Never Allergies Allergen Reactions Urtjyso-Fkp-Aqe Reductase Inhibitors Tramadol ROS Cardiovascular: Positive for [...] crush, chew, or split., (more content not included)...[facility]04-14-2025 Miscellaneous Notes* Telephone Encounter - Connie Dunham CMA - 01/27/2025 9:05 AM EDTSummary: [employer] Recently found a new pearl maker [facility] encounter Note* Telephone Encounter - Connie Dunham CMA - 01/27/2025 9:05 AM EDTSummary: [employer] Recently found a new pearl maker [facility]04-07-2025 Evaluation note* Diagnosis Onset Date Resolution Status Admit Date Anemia of renal disease acute A pril 2024 10:53am Chronic HFrEF (heart failure with reduced ejection fraction) acute January 20, 2025 10:53am Secondary hyperparathyroidism acute January 20, 2025 10:53am Type 2 diabetes mellitus wit h diabetic chronic kidney disease acute January 20, 2025 10:53am Hyperlipidemia type II deleted Ap 2024 10:53am Hypertensive chronic kidney disease with [...] 2024 8:51am Colon cancer acute April 07, 8:51am History of thyrotoxicosis acute April 07, [...] kidney disease acute April 17, 2025 3:08pm [place] Work Phone: 1(743) 849-325903-26-2025 Progress note Author Kaitlynn Emanuel [facility] Note Date/Time January 08, 2025 3:0 5pm [facility] [address] [place] [address] Nephrology Progress Note Signed Patient: Delano Ren MR#: [id number] : 1940 Acct:[id number] Age/Sex: 84 / M Adm Date: 5 Loc: Room: [address] [place] [address] Type: ADM IN Attending Dr: Sotero Black [...] 16 130/69 96 Room Air 1 01/08/25 11:31 01/08/25 11:31 01/08/25 11:31 01/08/25 11:31 01/08/25 11:31 01/08/25 11:12/30/24 05:00 Narrative: General: No acute distress [...] 100 Mg Tablet) 100 mg PO BID [facility] Stop: 12/30/25 20:59 Last Admin: 01/08/25 09:13 Dose: 100 mg Amiodarone HCl (Amiodarone 200 Mg Tablet) 200 mg PO DAILY FERN Stop: 12/28/25 08:59 Last Admin: 01/08/25 09:13 Dose: 200 mg Apixaban (Apixaban 2.5 Mg Tablet) 2.5 mg PO BID FERN Stop: 12/28/25 08:59 Last Admin: 01/08/25 09:12 Dose: 2.5 mg Ascorbic Acid (Ascorbic Acid 500 Mg Tablet) 500 mg PO DAILY [facility] Stop: 12/28/25 08:59 Last Admin: 01/08/25 09:13 Dose: 500 mg Balsam [place]/Coral Oil (Balsam [place]/Coral Oil Oint 60 Gm Tube) 1 applic TOPICAL BID PRN PRN Reason: tape caraballo Stop: 01/01/26 12:33 Last Admin: 01/04/25 21:05 Dose: 1 applic Bisacodyl (Bisacodyl 10 Mg Supp.Rect) 10 mg WY DAILY PRN PRN Reason: Constipation Stop: 12/27/25 14:22 Budesonide/Formoterol Fumarate (Budesonide/Formoterol 160-4.5 Mcg 120 Puff/10.2 Gm Hfa.Aer.Ad) 2 puff INHALATION BID FERN Stop: 12/28/25 08:59 Last Admin: 01/08/25 06:07 Dose: Not Given Calcium Carbonate (Calcium Carbonate/Vitamin D3 500 Mg/200 Unit Tablet) 1 tab PO TID.WITH.MEALS [facility] Stop: 12/27/25 16:59 Last Admin: 01/08/25 12:30 [...] Enema 283 Mg/5 Ml Enema) 283 mg WY DAILY PRN PRN Reason: Constipation Stop: 12/27/25 14:22 Ezetimibe (Ezetimibe 10 Mg Tablet) 10 mg PO DAILY [facility] Stop: 12/28/25 08:59 Last Admin: 01/08/25 09:13 Dose: 10 mg Ferrous Sulfate (Ferrous Sulfate 324 Mg Tablet.Dr) 324 mg PO DAILY [facility] Stop: 01/04/26 08:59 Last Admin: 01/08/25 09:13 Dose: 324 mg Hydralazine HCl (Hydralazine 50 Mg Tablet) 50 mg PO BID [facility] Stop: 01/01/26 20:59 Last Admin: 01/02/25 08:49 Dose: Not Given Ipratropium Casey (Ipratropium Casey 0.5 Mg/2.5 Ml Vial.Neb) 0.5 mg INHALATION QID.RESP [facility] Stop: 12/27/25 19:59 Last Admin: 01/08/25 13:28 Dose: Not Given Isosorbide Dinitrate (Isosorbide Dinitrate 10 Mg Tablet) 10 mg PO TID [facility] Stop: 12/27/25 21:59 Last Admin: 01/02/25 08:48 Dose: 10 mg Lactulose (Lactulose 20 Gm/30 Ml Udc) 30 gm PO DAILY PRN PRN Reason: Constipation Stop: 12/27/25 14:22 Melatonin (Melatonin 5 Mg Tablet) 5 mg PO QHS [facility] Stop: 01/01/26 21:59 Last Admin: 01/07/25 20:28 Dose: 5 mg Metoprolol Succinate (Metoprolol Succinate 25 Mg Tab.Er.24h) 25 mg PO DAILY [facility] Stop: 01/03/26 08:59 Last Admin: 01/08/25 09:13 [...] (Phenyleph/Mineral Oil/Petrolat 57 Gm Tube) 1 applicator WY QID PRN PRN Reason: Hemorrhoids Stop: 01/04/26 23:01 Polyethylene Glycol (Polyethylene Glycol 3350 17 Gm Powd.Pack) 17 gm PO DAILY [facility] Stop: 12/28/25 08:59 Last Admin: 01/08/25 09:16 [...] Allergy (Unknown, Verified 12/19/24 08:50) Unknown Reaction Ciyplwr-HZO-VqD Reductase Inhibitor (Tmvjpdo-Ken-Jcb Reductase Inhibitor) Allergy (Unknown, Verified 12/19/24 08:50) [...] times weekly Documented By: Kaitlynn Emanuel MD 01/08/25 1502 Signed By: <Electronically signed by Kaitlynn Emanuel MD> 01/08/25 1505 [facility] Work Phone: 1(625) 619-935103-25-2025 Progress note Author Sotero Black [facility] Note Date/Time January 07, 2025 3:4 0pm [facility] [address] [place] [address] Physiatry(Rehab) Progress Note Signed Patient: Delano Ren MR#: [id number] : 1940 Acct:[id number] Age/Sex: 84 / M Adm Date: 5 Loc: Room: 6Q0977-3 Type: ADM IN Attending Dr: Sotero Black [...] Allergy (Unknown, Verified 12/19/24 08:50) Unknown Reaction Mgfknpy-UUF-SxB Reductase Inhibitor (Voenvnf-Lou-Wzk Reductase Inhibitor) Allergy (Unknown, Verified 12/19/24 08:50) [...] 08:59 500 mg DAILY FERN Administration Balsam Qian/Coral Oil 1 applic 01/01/25 12:34 01/04/25 21:05 Balsam Qian/Coral Oil Oint 60 Gm Tube TOPICAL 01/01/26 12:33 1 applic BID PRN Administration tape caraballo Bisacodyl 10 mg 12/27/24 14:23 Bisacodyl 10 Mg Supp.Rect WY 12/27/25 14:22 DAILY PRN Constipation Budesonide/Formoterol Fumarate [...] 14:23 Docusate Enema 283 Mg/5 Ml Enema WY 12/27/25 14:22 DAILY PRN Constipation Ezetimibe 10 [...] 01/01/26 20:59 Not Given BID FERN Ipratropium Casey 0.5 mg 12/27/24 20:00 01/07/25 05:44 Ipratropium Casey 0.5 Mg/2.5 Ml Vial.Neb INHALATION 12/27/25 19:59 [...] 01/04/25 23:02 Phenyleph/Mineral Oil/Petrolat 57 Gm Tube WY 01/04/26 23:01 QID PRN Hemorrhoids Polyethylene Glycol [...] Syringe IV-PUSH 12/28/25 05:59 10 ml Q8H EFRN Administration Vitamin D 125 mcg 12/28/24 09:00 [...] equipment to enhance the patient's a functional samaritan Encourage deep breathing exercises and incentive spirometry [...] diabetes mellitus with hyperglycemia: Qualifiers: Diabetes mellitus public housing interviewer insulin use: without public housing interviewer use Qualified Code(s): E11.65 - Type 2 [...] I spent 28 minutes for services, including axpp-yc-elmd encounter with the patient, discussion of the case, plan of care, and exam; and klwnnpq-kj-cfpz activities, such as reviewing pertinent care consultant documentation, recent therapynotes, laboratory and radiology studies, and discussion of case with care team including physician, nursing, director of casework, and therapists. More than 50 % of time was spent on patient/family counseling or coordination ofcare. Documented By: Sotero Black MD 01/07/25 0903 Signed By: <Electronically signed by Sotero Black MD> 01/07/25 154 [facility] Work Phone: 1(557) 463-413803-24-2025 Progress note Author Brenda Driscoll [facility] Note Date/Time January 06, 2025 1:4 1pm [facility] [address] [place] [address] Physiatry(Rehab) Progress Note Signed Patient: Delano Ren MR#: [id number] : 1940 Acct:[id number] Age/Sex: 84 / M Adm Date: 5 Loc: Room: [address] [place] [address] Type: ADM IN Attending Dr: Sotero Black [...] Allergy (Unknown, Verified 12/19/24 08:50) Unknown Reaction Hicduxc-IZB-EnR Reductase Inhibitor (Wuaqkot-Wxb-Qkr Reductase Inhibitor) Allergy (Unknown, Verified 12/19/24 08:50) [...] 08:59 500 mg DAILY FERN Administration Balsam Qian/Coral Oil 1 applic 01/01/25 12:34 01/04/25 21:05 Balsam Qian/Coral Oil Oint 60 Gm Tube TOPICAL 01/01/26 12:33 1 applic BID PRN Administration tape caraballo Bisacodyl 10 mg 12/27/24 14:23 Bisacodyl 10 Mg Supp.Rect WY 12/27/25 14:22 DAILY PRN Constipation Budesonide/Formoterol Fumarate [...] 14:23 Docusate Enema 283 Mg/5 Ml Enema WY 12/27/25 14:22 DAILY PRN Constipation Ezetimibe 10 [...] 01/01/26 20:59 Not Given BID FERN Ipratropium Casey 0.5 mg 12/27/24 20:00 01/06/25 09:22 Ipratropium Casey 0.5 Mg/2.5 Ml Vial.Neb INHALATION 12/27/25 19:59 [...] 01/04/25 23:02 Phenyleph/Mineral Oil/Petrolat 57 Gm Tube WY 01/04/26 23:01 QID PRN Hemorrhoids Polyethylene Glycol [...] equipment to enhance the patient's a functional samaritan Encourage deep breathing exercises and incentive spirometry [...] diabetes mellitus with hyperglycemia: Qualifiers: Diabetes mellitus penitentiary insulin use: without penitentiary use Qualified Code(s): E11.65 - Type 2 [...] I spent 18 minutes for services, including ckzr-pg-fbyj encounter with the patient, discussion of the case, plan of care, and exam; and ewibzij-gg-kayi activities, such as reviewing pertinent care consultant documentation, recent therapynotes, laboratory and radiology studies, and discussion of case with care team including physician, nursing, director of casework, and therapists. More than 50 % of time was spent on patient/family counseling or coordination ofcare. <Statement entered by Sotero Black MD - 01/06/25 13:41> Patient was personally seen by me, Dr. Black, on the day of encounter, reviewed the history and the relevant portions of the chart, including current orders, allied health and care consultant notes, labs/imaging and performed mckenna elements of exam and I formulated the plan of care and facilitated the medical decision making. I completed a substantive portion of this encounter, the medical decision makingportion of this note in its entirety, including Allied health note review, nursing note review, care consultant note review, discussion with nursing and case management, and more than 50% of my time was spent on counseling and coordination of care, time spent 25 minutes Documented By: Brenda Driscoll APRN 01/06/25 1 220 Signed By: <Electronically signed by EDWARD Driscoll> 01/06/25 1225 <Electronically signed by Sotero Black MD> 01/06/25 1341 [facility] Work Phone: 1(825) 256-468503-24-2025 Progress note Author Kaitlynn Emanuel [facility] Note Date/Time January 06, 2025 1:3 5pm [facility] [address] [place] [address] Nephrology Progress Note Signed Patient: Delano Ren MR#: [id number] : 1940 Acct:[id number] Age/Sex: 84 / M Adm Date: 5 Loc: Room: [address] [place] [address] Type: ADM IN Attending Dr: Sotero Black [...] 100 Mg Tablet) 100 mg PO BID [facility] Stop: 12/30/25 20:59 Last Admin: 01/06/25 08:33 Dose: 100 mg Amiodarone HCl (Amiodarone 200 Mg Tablet) 200 mg PO DAILY FERN Stop: 12/28/25 08:59 Last Admin: 01/06/25 08:33 Dose: 200 mg Apixaban (Apixaban 2.5 Mg Tablet) 2.5 mg PO BID FERN Stop: 12/28/25 08:59 Last Admin: 12/31/24 08:30 Dose: 2.5 mg Ascorbic Acid (Ascorbic Acid 500 Mg Tablet) 500 mg PO DAILY [facility] Stop: 12/28/25 08:59 Last Admin: 01/06/25 08:33 Dose: 500 mg Balsam [place]/Coral Oil (Balsam [place]/Coral Oil Oint 60 Gm Tube) 1 applic TOPICAL BID PRN PRN Reason: tape caraballo Stop: 01/01/26 12:33 Last Admin: 01/04/25 21:05 Dose: 1 applic Bisacodyl (Bisacodyl 10 Mg Supp.Rect) 10 mg WY DAILY PRN PRN Reason: Constipation Stop: 12/27/25 14:22 Budesonide/Formoterol Fumarate (Budesonide/Formoterol 160-4.5 Mcg 120 Puff/10.2 Gm Hfa.Aer.Ad) 2 puff INHALATION BID [facility] Stop: 12/28/25 08:59 Last Admin: 01/06/25 06:28 Dose: Not Given Calcium Carbonate (Calcium Carbonate/Vitamin D3 500 Mg/200 Unit Tablet) 1 tab PO TID.WITH.MEALS [facility] Stop: 12/27/25 16:59 Last Admin: 01/06/25 11:48 [...] Enema 283 Mg/5 Ml Enema) 283 mg WY DAILY PRN PRN Reason: Constipation Stop: 12/27/25 14:22 Ezetimibe (Ezetimibe 10 Mg Tablet) 10 mg PO DAILY [facility] Stop: 12/28/25 08:59 Last Admin: 01/06/25 08:33 Dose: 10 mg Ferrous Sulfate (Ferrous Sulfate 324 Mg Tablet.Dr) 324 mg PO DAILY [facility] Stop: 01/04/26 08:59 Last Admin: 01/06/25 08:33 Dose: 324 mg Hydralazine HCl (Hydralazine 50 Mg Tablet) 50 mg PO BID [facility] Stop: 01/01/26 20:59 Last Admin: 01/02/25 08:49 Dose: Not Given Ipratropium Casey (Ipratropium Casey 0.5 Mg/2.5 Ml Vial.Neb) 0.5 mg INHALATION QID.RESP [facility] Stop: 12/27/25 19:59 Last Admin: 01/06/25 09:22 Dose: Not Given Isosorbide Dinitrate (Isosorbide Dinitrate 10 Mg Tablet) 10 mg PO TID [facility] Stop: 12/27/25 21:59 Last Admin: 01/02/25 08:48 Dose: 10 mg Lactulose (Lactulose 20 Gm/30 Ml Udc) 30 gm PO DAILY PRN PRN Reason: Constipation Stop: 12/27/25 14:22 Melatonin (Melatonin 5 Mg Tablet) 5 mg PO QHS [facility] Stop: 01/01/26 21:59 Last Admin: 01/05/25 20:20 Dose: 5 mg Metoprolol Succinate (Metoprolol Succinate 25 Mg Tab.Er.24h) 25 mg PO DAILY [facility] Stop: 01/03/26 08:59 Last Admin: 01/06/25 08:33 [...] (Phenyleph/Mineral Oil/Petrolat 57 Gm Tube) 1 applicator WY QID PRN PRN Reason: Hemorrhoids Stop: 01/04/26 [...] Q8H FERN Stop: 12/28/25 05:59 Last Admin: 01/06/25 05:38 Dose: 10 ml Vitamin D (Cholecalciferol 125 Mcg (5,000 Units) Capsule) 125 mcg PO DAILY FERN Stop: 12/28/25 08:59 Last Admin: 01/06/25 08:33 Dose: 125 mcg Allergies simvastatin Allergy (Unknown, Verified 12/19/24 08:50) Unknown Reaction Nmdimjr-VUR-HjT Reductase Inhibitor (Egtsmhw-Hqy-Try Reductase Inhibitor) Allergy (Unknown, Verified 12/19/24 08:50) [...] <Electronically signed by Kaitlynn Emanuel MD> 01/06/251334 [facility] Work Phone: 1([phone]) 594-107503-24-2025 Progress note Author Clyde Bedolla [facility] Note Date/Time January 05, 2025 10: 19pm [facility] [address] [place] [address] Physiatry(Rehab) Progress Note Signed Patient: Delano Ren MR#: [id number] : 1940 Acct:[id number] Age/Sex: 84 / M Adm Date: 5 Loc: Room: [id number] Type: ADM IN Attending Dr: Sotero Black [...] Allergy (Unknown, Verified 12/19/24 08:50) Unknown Reaction Segxsri-MGG-DyA Reductase Inhibitor (Lqklrgn-Abn-Dht Reductase Inhibitor) Allergy (Unknown, Verified 12/19/24 08:50) [...] 08:59 500 mg DAILY FERN Administration Balsam Qian/Coral Oil 1 applic 01/01/25 12:34 01/04/25 21:05 Balsam Monessen/Coral Oil Oint 60 Gm Tube TOPICAL 01/01/26 12:33 1 applic BID PRN Administration tape caraballo Bisacodyl 10 mg 12/27/24 14:23 Bisacodyl 10 Mg Supp.Rect WY 12/27/25 14:22 DAILY PRN Constipation Budesonide/Formoterol Fumarate [...] 14:23 Docusate Enema 283 Mg/5 Ml Enema WY 12/27/25 14:22 DAILY PRN Constipation Ezetimibe 10 [...] 01/01/26 20:59 Not Given BID FERN Ipratropium Casey 0.5 mg 12/27/24 20:00 01/05/25 18:09 Ipratropium Casey 0.5 Mg/2.5 Ml Vial.Neb INHALATION 12/27/25 19:59 [...] 01/04/25 23:02 Phenyleph/Mineral Oil/Petrolat 57 Gm Tube WY 01/04/26 23:01 QID PRN Hemorrhoids Polyethylene Glycol [...] equipment to enhance the patient's a functional samaritan Encourage deep breathing exercises and incentive spirometry [...] diabetes mellitus with hyperglycemia: Qualifiers: Diabetes mellitus public housing interviewer insulin use: without public housing interviewer use Qualified Code(s): E11.65 - Type 2 [...] I spent 25 minutes for services, including qell-ct-bpqf encounter with the patient, discussion of the case, plan of care, and exam; and drjjfkv-mp-igyb activities, such as reviewing pertinent care consultant documentation, recent therapynotes, laboratory and radiology studies, and discussion of case with care team including physician, nursing, director of casework, and therapists. More than 50 % of time was spent on patient/family counseling or coordination ofcare. Documented By: Clyde Bedolla MD [id number] Signed By: <Electronically signed by Clyde Bedolla MD> 01/05/251 [facility] Work Phone: [phone] 879-743903-23-2025 Progress note Author Krysten Mcclelland [facility] Note Date/Time January 05, 2025 3:2 4pm [facility] [address] [place] [address] Hospitalist Progress Note Signed Patient: Delano Ren MR#: [id number] : 1940 Acct:[id number] Age/Sex: 84 / M Adm Date: 5 Loc: Room: [address] [place] [address] Type: ADM IN Attending Dr: Sotero Black [...] Allergy (Unknown, Verified 12/19/24 08:50) Unknown Reaction Irtrzwv-BNB-RxL Reductase Inhibitor (Hqnkdap-Vug-Qpz Reductase Inhibitor) Allergy (Unknown, Verified 12/19/24 08:50) [...] 08:59 500 mg DAILY FERN Administration Balsam Monessen/Coral Oil 1 applic 01/01/25 12:34 01/04/25 21:05 Balsam Monessen/Coral Oil Oint 60 Gm Tube TOPICAL 01/01/26 12:33 1 applic BID PRN Administration tape caraballo Bisacodyl 10 mg 12/27/24 14:23 Bisacodyl 10 Mg Supp.Rect WY 12/27/25 14:22 DAILY PRN Constipation Budesonide/Formoterol Fumarate 2 puff 12/28/24 09:00 01/05/25 06:51 Budesonide/Formoterol 160-4.5 Mcg 120 Puff/10.2 Gm Hfa.Aer.Ad INHALATION 12/28/25 08:59 Not Given BID FERN Calcium Carbonate 1 tab 12/27/24 17:00 01/05/25 12:24 Calcium Carbonate/Vitamin D3 500 Mg/200 Unit Tablet PO 12/27/25 16:59 1 tab TID.WITH.MEALS [facility] Administration Diclofenac Sodium 2 gm 01/02/25 10:35 01/03/25 08:06 Diclofenac Sodium 1% Gel 100 Gm Tube TOPICAL 01/02/26 10:34 2 gm QID PRN Administration Muscle Pain Docusate Sodium 100 mg 12/27/24 14:23 Docusate 100 Mg Capsule PO 12/27/25 14:22 BID PRN Constipation Docusate Sodium 283 mg 12/27/24 14:23 Docusate Enema 283 Mg/5 Ml Enema WY 12/27/25 14:22 DAILY PRN Constipation Ezetimibe 10 [...] 01/01/26 20:59 Not Given BID FERN Ipratropium Casey 0.5 mg 12/27/24 20:00 01/05/25 13:22 Ipratropium Casey 0.5 Mg/2.5 Ml Vial.Neb INHALATION 12/27/25 19:59 [...] 01/04/25 23:02 Phenyleph/Mineral Oil/Petrolat 57 Gm Tube WY 01/04/26 23:01 QID PRN Hemorrhoids Polyethylene Glycol [...] <Electronically signed by Sudha Sood MD> 01/05/25 1526 [facility] Work Phone: [phone] 146-478203-23-2025 Progress note Author Winsome Nielsonniya [facility] Note Date/Time January 05, 2025 2:1 9pm [facility] [address] [place], [place] [address] Nephrology Progress Note Signed Patient: Delano Ren MR#: [id number] : 1940 Acct:[id number] Age/Sex: 84 / M Adm Date: 5 Loc: Room: [address] [place] [address] Type: ADM IN Attending Dr: Sotero Black [...] 100 Mg Tablet) 100 mg PO BID [facility] Stop: 12/30/25 20:59 Last Admin: 01/05/25 09:33 Dose: 100 mg Amiodarone HCl (Amiodarone 200 Mg Tablet) 200 mg PO DAILY FERN Stop: 12/28/25 08:59 Last Admin: 01/05/25 09:33 Dose: 200 mg Apixaban (Apixaban 2.5 Mg Tablet) 2.5 mg PO BID FERN Stop: 12/28/25 08:59 Last Admin: 12/31/24 08:30 Dose: 2.5 mg Ascorbic Acid (Ascorbic Acid 500 Mg Tablet) 500 mg PO DAILY [facility] Stop: 12/28/25 08:59 Last Admin: 01/05/25 09:34 Dose: 500 mg Balsam Qian/Coral Oil (Balsam Qian/Coral Oil Oint 60 Gm Tube) 1 applic TOPICAL BID PRN PRN Reason: tape caraballo Stop: 01/01/26 12:33 Last Admin: 01/04/25 21:05 Dose: 1 applic Bisacodyl (Bisacodyl 10 Mg Supp.Rect) 10 mg WY DAILY PRN PRN Reason: Constipation Stop: 12/27/25 14:22 Budesonide/Formoterol Fumarate (Budesonide/Formoterol 160-4.5 Mcg 120 Puff/10.2 Gm Hfa.Aer.Ad) 2 puff INHALATION BID [facility] Stop: 12/28/25 08:59 Last Admin: 01/05/25 06:51 Dose: Not Given Calcium Carbonate (Calcium Carbonate/Vitamin D3 500 Mg/200 Unit Tablet) 1 tab PO TID.WITH.MEALS [facility] Stop: 12/27/25 16:59 Last Admin: 01/05/25 12:24 [...] Enema 283 Mg/5 Ml Enema) 283 mg WY DAILY PRN PRN Reason: Constipation Stop: 12/27/25 14:22 Ezetimibe (Ezetimibe 10 Mg Tablet) 10 mg PO DAILY [facility] Stop: 12/28/25 08:59 Last Admin: 01/05/25 09:34 Dose: 10 mg Ferrous Sulfate (Ferrous Sulfate 324 Mg Tablet.Dr) 324 mg PO DAILY [facility] Stop: 01/04/26 08:59 Last Admin: 01/05/25 09:34 Dose: 324 mg Hydralazine HCl (Hydralazine 50 Mg Tablet) 50 mg PO BID [facility] Stop: 01/01/26 20:59 Last Admin: 01/02/25 08:49 Dose: Not Given Ipratropium Casey (Ipratropium Casey 0.5 Mg/2.5 Ml Vial.Neb) 0.5 mg INHALATION QID.RESP [facility] Stop: 12/27/25 19:59 Last Admin: 01/05/25 13:22 Dose: Not Given Isosorbide Dinitrate (Isosorbide Dinitrate 10 Mg Tablet) 10 mg PO TID [facility] Stop: 12/27/25 21:59 Last Admin: 01/02/25 08:48 Dose: 10 mg Lactulose (Lactulose 20 Gm/30 Ml Udc) 30 gm PO DAILY PRN PRN Reason: Constipation Stop: 12/27/25 14:22 Melatonin (Melatonin 5 Mg Tablet) 5 mg PO QHS [facility] Stop: 01/01/26 21:59 Last Admin: 01/04/25 21:05 Dose: 5 mg Metoprolol Succinate (Metoprolol Succinate 25 Mg Tab.Er.24h) 25 mg PO DAILY [facility] Stop: 01/03/26 08:59 Last Admin: 01/05/25 09:34 [...] (Phenyleph/Mineral Oil/Petrolat 57 Gm Tube) 1 applicator WY QID PRN PRN Reason: Hemorrhoids Stop: 01/04/26 23:01 Polyethylene Glycol (Polyethylene Glycol 3350 17 Gm Powd.Pack) 17 gm PO DAILY FERN Stop: 12/28/25 08:59 Last Admin: 01/05/25 09:36 [...] Q8H FERN Stop: 12/28/25 05:59 Last Admin: 01/05/25 05:07 Dose: 10 ml Vitamin D (Cholecalciferol 125 Mcg (5,000 Units) Capsule) 125 mcg PO DAILY FERN Stop: 12/28/25 08:59 Last Admin: 01/05/25 09:34 Dose: 125 mcg Allergies simvastatin Allergy (Unknown, Verified 12/19/24 08:50) Unknown Reaction Drrfuke-FDT-OeV Reductase Inhibitor (Aduwrdw-Nen-Tuv Reductase Inhibitor) Allergy (Unknown, Verified 12/19/24 08:50) [...] <Electronically signed by MD Winsome Goff> 01/05/25 6847 [facility] Work Phone: 1(325) 408-445003-22-2025 Progress note Author Winsome Goff [facility] Note Date/Time January 04, 2025 5:5 3pm [facility] [address] [place] [address] Nephrology Progress Note Signed Patient: Delano Ren MR#: [id number] : 1940 Acct:[id number] Age/Sex: 84 / M Adm Date: 5 Loc: Room: [id number] Type: ADM IN Attending Dr: Sotero Black [...] FERN Stop: 12/28/25 08:59 Last Admin: 01/04/25 08:16 Dose: 500 mg Balsam Qian/Coral Oil (Balsam Qian/Coral Oil Oint 60 Gm Tube) 1 applic TOPICAL BID PRN PRN Reason: tape caraballo Stop: 01/01/26 12:33 Last Admin: 01/02/25 14:36 Dose: 1 applic Bisacodyl (Bisacodyl 10 Mg Supp.Rect) 10 mg WY DAILY PRN PRN Reason: Constipation Stop: 12/27/25 14:22 Budesonide/Formoterol Fumarate (Budesonide/Formoterol 160-4.5 Mcg 120 Puff/10.2 Gm Hfa.Aer.Ad) 2 puff INHALATION BID FERN Stop: 12/28/25 08:59 Last Admin: 01/04/25 04:56 Dose: Not Given Calcium Carbonate (Calcium Carbonate/Vitamin D3 500 Mg/200 Unit Tablet) 1 tab PO TID.WITH.MEALS FERN Stop: 12/27/25 16:59 Last Admin: 01/04/25 17:10 [...] Enema 283 Mg/5 Ml Enema) 283 mg WY DAILY PRN PRN Reason: Constipation Stop: 12/27/25 [...] Admin: 01/02/25 08:49 Dose: Not Given Ipratropium Casey (Ipratropium Casey 0.5 Mg/2.5 Ml Vial.Neb) 0.5 mg INHALATION QID.RESP FERN Stop: 12/27/25 19:59 Last Admin: 01/04/25 11:18 [...] QHS FERN Stop: 01/01/26 21:59 Last Admin: 01/03/25 21:24 Dose: 5 mg Metoprolol Succinate (Metoprolol Succinate 25 Mg Tab.Er.24h) 25 mg PO DAILY [facility] Stop: 01/03/26 08:59 Last Admin: 01/04/25 08:16 [...] 17 Gm Powd.Pack) 17 gm PO DAILY [facility] Stop: 12/28/25 08:59 Last Admin: 01/04/25 08:16 [...] 10 Ml Syringe) 10 ml IV-PUSH Q8H [facility] Stop: 12/28/25 05:59 Last Admin: 01/04/25 14:19 Dose: 10 ml Vitamin D (Cholecalciferol 125 Mcg (5,000 Units) Capsule) 125 mcg PO DAILY [facility] Stop: 12/28/25 08:59 Last Admin: 01/04/25 08:15 Dose: 125 mcg Allergies simvastatin Allergy (Unknown, Verified 12/19/24 08:50) Unknown Reaction Slnaglz-CYE-IwH Reductase Inhibitor (Izqfimt-Dgs-Knv Reductase Inhibitor) Allergy (Unknown, Verified 12/19/24 08:50) [...] daily. Documented By: Winsome Goff MD 01/04/25 4894 Signed By: <Electronically signed by MD Winsome Goff> 01/04/25 5702 [facility] Work Phone: [phone]) 423-986803-22-2025 Progress note Author Brenda Driscoll [facility] Note Date/Time January 03, 2025 11: 02pm [facility] [address] [place] [address] Physiatry(Rehab) Progress Note Signed Patient: Delano Ren MR#: [id number] : 1940 Acct:[id number] Age/Sex: 84 / M Adm Date: 5 Loc: Room: [id number] Type: ADM IN Attending Dr: Sotero Black [...] . He can be referred to or [facility] gastroenterology in outpatient settings. Dayan [...] Allergy (Unknown, Verified 12/19/24 08:50) Unknown Reaction Vmgywbq-XUY-XtR Reductase Inhibitor (Gtbbbek-Mus-Wfd Reductase Inhibitor) Allergy (Unknown, Verified 12/19/24 08:50) [...] 08:59 500 mg DAILY FERN Administration Balsam Monessen/Coral Oil 1 applic 01/01/25 12:34 01/02/25 14:36 Balsam Monessen/Coral Oil Oint 60 Gm Tube TOPICAL 01/01/26 12:33 1 applic BID PRN Administration tape caraballo Bisacodyl 10 mg 12/27/24 14:23 Bisacodyl 10 Mg Supp.Rect WY 12/27/25 14:22 DAILY PRN Constipation Budesonide/Formoterol Fumarate 2 puff 12/28/24 09:00 01/03/25 08:12 Budesonide/Formoterol 160-4.5 Mcg 120 Puff/10.2 Gm Hfa.Aer.Ad INHALATION 12/28/25 08:59 Not Given BID FERN Calcium Carbonate 1 tab 12/27/24 17:00 01/03/25 [...] 14:23 Docusate Enema 283 Mg/5 Ml Enema WY 12/27/25 14:22 DAILY PRN Constipation Ezetimibe 10 mg 12/28/24 09:00 01/03/25 08:06 Ezetimibe 10 Mg Tablet PO 12/28/25 08:59 10 mg DAILY FERN Administration Ferrous Sulfate 324 mg 01/04/25 09:00 Ferrous Sulfate 324 Mg Tablet. PO 01/04/26 08:59 DAILY FERN Hydralazine HCl 50 mg 01/01/25 21:00 01/02/25 08:49 Hydralazine 50 Mg Tablet PO 01/01/26 20:59 Not Given BID FERN Sodium Chloride 100 mls @ 20 mls/hr 01/03/25 09:45 0.9% Sodium Chloride 100 Ml IV 01/04/25 09:44 PROTOCOL PRN BLOOD TRANSFUSION Ipratropium Casey 0.5 mg 12/27/24 20:00 01/03/25 12:41 Ipratropium Casey 0.5 Mg/2.5 Ml Vial.Neb INHALATION 12/27/25 19:59 [...] equipment to enhance the patient's a functional samaritan Encourage deep breathing exercises and incentive spirometry [...] diabetes mellitus with hyperglycemia: Qualifiers: Diabetes mellitus penitentiary insulin use: without public housing interviewer use Qualified Code(s): 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 More than 50 % of time was spent on patient/family counseling or coordination ofcare. <Statement entered by Clyde Bedolla MD - 01/03/25 23:02> This documentation has been reviewed and approved. Documented By: Brenda Driscoll APRN 01/03/25 1 000 Signed By: <Electronically signed by EDWARD Driscoll> 01/03/25 1406 <Electronically signed by Clyde Bedolla MD> 01/03/25 2943 [facility] Work Phone: [phone] 990-799303-21-2025 Consult note Author Son Nicole [facility] Note Date/Time January 03, 2025 12: 05pm [facility] [address] [place] [address] Gastroenterology Consult Note Signed Patient: Delano Ren MR#: [id number] : 1940 Acct:[id number] Age/Sex: 84 / M Adm Date: 5 Loc: Room: [address] [place] [address] Type: ADM IN Attending Dr: oStero Black MD Copies to: DO Son Lauren MD Joseph Riley, MD~ HPI Data of Consult Date of [...] negative unless noted below or in HPI [facility] Medical History Former smoker quit at age [...] Allergy (Unknown, Verified 12/19/24 08:50) Unknown Reaction Dvnfysr-ONO-AdE Reductase Inhibitor (Clgpyax-Qlm-Coo Reductase Inhibitor) Allergy (Unknown, Verified 12/19/24 08:50) [...] <Electronically signed by Son Nicole MD> 01/03/25 1208 [facility] Work Phone: [phone] 604-380703-20-2025 Progress note Author Winsome Goff [facility] Note Date/Time January 02, 2025 2:3 2pm [facility] [address] [place], [place] [address] Nephrology Progress Note Signed Patient: Delano Ren MR#: [id number] : 1940 Acct:[id number] Age/Sex: 84 / M Adm Date: Loc: Room: [id number] Type: ADM IN Attending Dr: Sotero Black [...] BID FERN Stop: 12/30/25 20:59 Last Admin: 01/02/25 08:48 [...] Admin: 01/02/25 08:48 Dose: 500 mg Balsam Monessen/Coral Oil (Balsam Qian/Coral Oil Oint 60 Gm Tube) 1 applic TOPICAL BID PRN PRN Reason: tape caraballo Stop: 01/01/26 12:33 Bisacodyl (Bisacodyl 10 Mg Supp.Rect) 10 mg WY DAILY PRN PRN Reason: Constipation Stop: 12/27/25 14:22 Budesonide/Formoterol Fumarate (Budesonide/Formoterol 160-4.5 Mcg 120 Puff/10.2 Gm Hfa.Aer.Ad) 2 puff INHALATION BID FERN Stop: 12/28/25 08:59 Last Admin: 01/02/25 05:15 Dose: Not Given Calcium Carbonate (Calcium Carbonate/Vitamin D3 500 Mg/200 Unit Tablet) 1 tab PO TID.WITH.MEALS FERN Stop: 12/27/25 16:59 Last Admin: 01/02/25 12:38 Dose: 1 tab Diclofenac Sodium (Diclofenac Sodium 1% Gel 100 Gm Tube) 2 gm TOPICAL QID PRN PRN Reason: Muscle Pain Stop: 01/02/26 10:34 Docusate Sodium (Docusate 100 Mg Capsule) 100 mg PO BID PRN PRN Reason: Constipation Stop: 12/27/25 14:22 Docusate Sodium (Docusate Enema 283 Mg/5 Ml Enema) 283 mg WY DAILY PRN PRN Reason: Constipation Stop: 12/27/25 [...] Reason: BLOOD TRANSFUSION Stop: 01/03/25 09:01 Ipratropium Casey (Ipratropium Casey 0.5 Mg/2.5 Ml Vial.Neb) 0.5 mg INHALATION QID.RESP FERN Stop: 12/27/25 19:59 Last Admin: 01/02/25 14:11 Dose: Not Given Isosorbide Dinitrate (Isosorbide Dinitrate 10 Mg Tablet) 10 mg PO TID [facility] Stop: 12/27/25 21:59 Last Admin: 01/02/25 08:48 Dose: 10 mg Lactulose (Lactulose 20 Gm/30 Ml Udc) 30 gm PO DAILY PRN PRN Reason: Constipation Stop: 12/27/25 14:22 Melatonin (Melatonin 5 Mg Tablet) 5 mg PO QHS [facility] Stop: 01/01/26 21:59 Last Admin: 01/01/25 21:17 Dose: 5 mg Metoprolol Succinate (Metoprolol Succinate 25 Mg Tab.Er.24h) 25 mg PO DAILY [facility] Stop: 01/03/26 08:59 Oxycodone HCl (Oxycodone Ir [...] 17 Gm Powd.Pack) 17 gm PO DAILY [facility] Stop: 12/28/25 08:59 Last Admin: 01/02/25 08:48 [...] 10 Ml Syringe) 10 ml IV-PUSH Q8H [facility] Stop: 12/28/25 05:59 Last Admin: 01/02/25 05:01 Dose: 10 ml Vitamin D (Cholecalciferol 125 Mcg (5,000 Units) Capsule) 125 mcg PO DAILY [facility] Stop: 12/28/25 08:59 Last Admin: 01/02/25 08:48 Dose: 125 mcg Allergies simvastatin Allergy (Unknown, Verified 12/19/24 08:50) Unknown Reaction Iewplhd-NAK-UpV Reductase Inhibitor (Gelvnmx-Cfm-Bqf Reductase Inhibitor) Allergy (Unknown, Verified 12/19/24 08:50) [...] and he follow-up with Dr. Syed in [place]. * Will transfuse additional 1 unit of [...] <Electronically signed by MD Winsome Goff> 01/02/25 9605 [facility] Work Phone: [phone] 225-629903-20-2025 Progress note Author Sotero Black [facility] Note Date/Time January 02, 2025 10: 04am [facility] [address] [place] [address] Physiatry(Rehab) Progress Note Signed Patient: Delano Ren MR#: [id number] : 1940 Acct:[id number] Age/Sex: 84 / M Adm Date: 5 Loc: Room: [address] [place] [address] Type: ADM IN Attending Dr: Sotero Black [...] Allergy (Unknown, Verified 12/19/24 08:50) Unknown Reaction Ezrtyoo-NSD-XeU Reductase Inhibitor (Cwkqgwf-Shs-Gnq Reductase Inhibitor) Allergy (Unknown, Verified 12/19/24 08:50) [...] 08:59 500 mg DAILY FERN Administration Balsam Monessen/Coral Oil 1 applic 01/01/25 12:34 Balsam Monessen/Coral Oil Oint 60 Gm Tube TOPICAL 01/01/26 12:33 BID PRN tape caraballo Bisacodyl 10 mg 12/27/24 14:23 Bisacodyl 10 Mg Supp.Rect WY 12/27/25 14:22 DAILY PRN Constipation Budesonide/Formoterol Fumarate [...] 14:23 Docusate Enema 283 Mg/5 Ml Enema WY 12/27/25 14:22 DAILY PRN Constipation Ezetimibe 10 mg 12/28/24 09:00 01/01/25 09:03 Ezetimibe 10 Mg Tablet PO 12/28/25 08:59 10 mg DAILY FERN Administration Hydralazine HCl 50 mg 01/01/25 21:00 Hydralazine 50 Mg Tablet PO 01/01/26 20:59 BID FERN Ipratropium Casey 0.5 mg 12/27/24 20:00 01/01/25 12:00 Ipratropium Casey 0.5 Mg/2.5 Ml Vial.Neb INHALATION 12/27/25 19:59 [...] equipment to enhance the patient's a functional samaritan Encourage deep breathing exercises and incentive spirometry [...] diabetes mellitus with hyperglycemia: Qualifiers: Diabetes mellitus public housing interviewer insulin use: without penitentiary use Qualified Code(s): 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 I completed a substantive portion of this encounter, the medical decision makingportion of this note in its entirety, including Allied health note review, nursing note review, care consultant note review, discussion with nursing and case management, and more than 50% of my time was spent on counseling and coordination of care, time spent 26 minutes Documented By: Sotero Black MD 01/01/25 1522 Signed By: <Electronically signed by Sotero Black MD> 01/02/25 7375 [facility] Work Phone: [phone]) 308-635603-19-2025 Progress note Author Winsome Goff [facility] Note Date/Time January 01, 2025 3:0 7pm [facility] [address] [place] [address] Nephrology Progress Note Signed Patient: Delano Ren MR#: [id number] : 1940 Acct:[id number] Age/Sex: 84 / M Adm Date: 5 Loc: Room: [address] [place] [address] Type: ADM IN Attending Dr: Sotero Black [...] BID FERN Stop: 12/30/25 20:59 Last Admin: 01/01/25 09:03 [...] Admin: 01/01/25 09:03 Dose: 500 mg Balsam Qian/Coral Oil (Balsam Monessen/Coral Oil Oint 60 Gm Tube) 1 applic TOPICAL BID PRN PRN Reason: tape caraballo Stop: 01/01/26 12:33 Bisacodyl (Bisacodyl 10 Mg Supp.Rect) 10 mg WY DAILY PRN PRN Reason: Constipation Stop: 12/27/25 [...] Enema 283 Mg/5 Ml Enema) 283 mg WY DAILY PRN PRN Reason: Constipation Stop: 12/27/25 14:22 Ezetimibe (Ezetimibe 10 Mg Tablet) 10 mg PO DAILY [facility] Stop: 12/28/25 08:59 Last Admin: 01/01/25 09:03 Dose: 10 mg Hydralazine HCl (Hydralazine 50 Mg Tablet) 100 mg PO TID FERN Stop: 12/27/25 21:59 Last Admin: 01/01/25 14:10 Dose: 100 mg Sodium Chloride (0.9% Sodium Chloride 100 Ml) 100 mls @ 20 mls/hr IV PROTOCOL PRN PRN Reason: BLOOD TRANSFUSION Stop: 01/01/25 15:09 Ipratropium Casey (Ipratropium Casey 0.5 Mg/2.5 Ml Vial.Neb) 0.5 mg INHALATION QID.RESP FERN Stop: 12/27/25 19:59 Last Admin: 01/01/25 12:00 Dose: Not Given Isosorbide Dinitrate (Isosorbide Dinitrate 10 Mg Tablet) 10 mg PO TID [facility] Stop: 12/27/25 21:59 Last Admin: 01/01/25 14:10 Dose: 10 mg Lactulose (Lactulose 20 Gm/30 Ml Udc) 30 gm PO DAILY PRN PRN Reason: Constipation Stop: 12/27/25 14:22 Metoprolol Succinate (Metoprolol Succinate 100 Mg Tab.Er.24h) 100 mg PO DAILY [facility] Stop: 12/28/25 08:59 Last Admin: 01/01/25 09:03 [...] 17 Gm Powd.Pack) 17 gm PO DAILY [facility] Stop: 12/28/25 08:59 Last Admin: 01/01/25 09:03 [...] Allergy (Unknown, Verified 12/19/24 08:50) Unknown Reaction Zjacxrw-HXP-JcA Reductase Inhibitor (Minpuwe-Rxl-Bio Reductase Inhibitor) Allergy (Unknown, Verified 12/19/24 08:50) [...] and he follow-up with Dr. Syed in [place]. * Hemoglobin did improve after 1 unit of packed RBCs. * Blood pressure still relatively low. Will decrease hydralazine to 50 mg twice a day. Amlodipine was stopped yesterday. Patient on metoprolol 100 mg daily that can be decreased to 50 mg if blood pressure still low. * Check renal function and CBC daily. Documented By: Winsome Goff MD 01/01/25 1503 Signed By: <Electronically signed by MD Winsome Goff> 01/01/25 1507 [facility] Work Phone: [phone] 372-730103-18-2025 Progress note Author Winsome Goff [facility] Note Date/Time December 31, 2024 3:1 4pm [facility] [address] [place] [address] Nephrology Progress Note Signed Patient: Delano Ren MR#: [id number] : 1940 Acct:[id number] Age/Sex: 84 / M Adm Date: 5 Loc: Room: 2W5008-8 Type: ADM IN Attending Dr: Sotero Black [...] BID FERN Stop: 12/30/25 20:59 Last Admin: 12/31/24 08:30 [...] Bisacodyl (Bisacodyl 10 Mg Supp.Rect) 10 mg WY DAILY PRN PRN Reason: Constipation Stop: 12/27/25 [...] Enema 283 Mg/5 Ml Enema) 283 mg WY DAILY PRN PRN Reason: Constipation Stop: 12/27/25 14:22 Ezetimibe (Ezetimibe 10 Mg Tablet) 10 mg PO DAILY [facility] Stop: 12/28/25 08:59 Last Admin: 12/31/24 08:30 Dose: 10 mg Hydralazine HCl (Hydralazine 50 Mg Tablet) 100 mg PO TID FERN Stop: 12/27/25 21:59 Last Admin: 12/31/24 08:31 Dose: Not Given Sodium Chloride (0.9% Sodium Chloride 100 Ml) 100 mls @ 20 mls/hr IV PROTOCOL PRN PRN Reason: BLOOD TRANSFUSION Stop: 01/01/25 12:03 Ipratropium Casey (Ipratropium Casey 0.5 Mg/2.5 Ml Vial.Neb) 0.5 mg INHALATION QID.RESP FERN Stop: 12/27/25 19:59 Last Admin: 12/31/24 13:07 Dose: Not Given Isosorbide Dinitrate (Isosorbide Dinitrate 10 Mg Tablet) 10 mg PO TID [facility] Stop: 12/27/25 21:59 Last Admin: 12/31/24 08:30 Dose: 10 mg Lactulose (Lactulose 20 Gm/30 Ml Udc) 30 gm PO DAILY PRN PRN Reason: Constipation Stop: 12/27/25 14:22 Metoprolol Succinate (Metoprolol Succinate 100 Mg Tab.Er.24h) 100 mg PO DAILY [facility] Stop: 12/28/25 08:59 Last Admin: 12/31/24 08:30 [...] 17 Gm Powd.Pack) 17 gm PO DAILY [facility] Stop: 12/28/25 08:59 Last Admin: 12/31/24 08:30 [...] Allergy (Unknown, Verified 12/19/24 08:50) Unknown Reaction [id number]-[id number] Reductase Inhibitor (Eosfxwd-Ecb-Rbb Reductase Inhibitor) Allergy (Unknown, Verified 12/19/24 08:50) [...] and he follow-up with Dr. Syed in [place]. * Hemoglobin did drop down to 7.6 [...] daily. Documented By: Winsome Goff MD 12/31/24 150 Signed By: <Electronically signed by MD Winsome Goff> 12/31/24 0083 [facility] Work Phone: [phone] Progress note Author Sotero Black [facility] Note Date/Time December 31, 2024 12: 09pm [facility] [address] [place] [address] Physiatry(Rehab) Progress Note Signed Patient: Delano Ren MR#: [id number] : 1940 Acct:[id number] Age/Sex: 84 / M Adm Date: 5 Loc: Room: [address] [place] [address] Type: ADM IN Attending Dr: Sotero Black [...] % (Auto) N/A Lymph % (Auto) N/A Hood % (Auto) N/A Eos % (Auto) N/A Baso % (Auto) N/A Nucleat RBC Rel Count N/A Neut # (Auto) N/A Lymph # (Auto) N/A Hood # (Auto) N/A Eos # (Auto) N/A [...] Allergy (Unknown, Verified 12/19/24 08:50) Unknown Reaction Vbfjoak-JPR-UmM Reductase Inhibitor (Tyzrnsg-Bpm-Qnw Reductase Inhibitor) Allergy (Unknown, Verified 12/19/24 08:50) [...] Tablet PO 12/28/25 08:59 Not Given DAILY [facility] Amiodarone HCl 200 mg 12/28/24 09:00 12/30/24 10:49 Amiodarone 200 Mg Tablet PO 12/28/25 08:59 Not Given DAILY FERN Amlodipine Besylate 10 mg 12/28/24 09:00 12/30/24 10:49 Amlodipine 10 Mg Tablet PO 12/28/25 08:59 Not Given DAILY FERN Apixaban 2.5 mg 12/28/24 09:00 12/30/24 10:49 Apixaban 2.5 Mg Tablet PO 12/28/25 08:59 Not Given BID FERN Ascorbic Acid 500 mg 12/28/24 09:00 12/30/24 10:49 Ascorbic Acid 500 Mg Tablet PO 12/28/25 08:59 Not Given DAILY FERN Bisacodyl 10 mg 12/27/24 14:23 Bisacodyl 10 Mg Supp.Rect WY 12/27/25 14:22 DAILY PRN Constipation Budesonide/Formoterol Fumarate 2 puff 12/28/24 09:00 12/30/24 06:37 Budesonide/Formoterol 160-4.5 Mcg 120 Puff/10.2 Gm Hfa.Aer.Ad INHALATION 12/28/25 08:59 Not Given BID [facility] Calcium Carbonate 1 tab 12/27/24 17:00 12/30/24 11:04 Calcium Carbonate/Vitamin D3 500 Mg/200 Unit Tablet PO 12/27/25 16:59 1 tab TID.WITH.MEALS [facility] Administration Docusate Sodium 100 mg 12/27/24 14:23 Docusate 100 Mg Capsule PO 12/27/25 14:22 BID PRN Constipation Docusate Sodium 283 mg 12/27/24 14:23 Docusate Enema 283 Mg/5 Ml Enema WY 12/27/25 14:22 DAILY PRN Constipation Ezetimibe 10 mg 12/28/24 09:00 12/30/24 10:50 Ezetimibe 10 Mg Tablet PO 12/28/25 08:59 Not Given DAILY [facility] Hydralazine HCl 100 mg 12/27/24 22:00 12/30/24 10:50 Hydralazine 50 Mg Tablet PO 12/27/25 21:59 Not Given TID FERN Ipratropium Casey 0.5 mg 12/27/24 20:00 12/30/24 12:10 Ipratropium Casey 0.5 Mg/2.5 Ml Vial.Neb INHALATION 12/27/25 19:59 [...] Tab.Er.24h PO 12/28/25 08:59 Not Given DAILY FERN Oxycodone HCl 5 mg 12/27/24 14:35 12/30/24 [...] Powd.Pack PO 12/28/25 08:59 Not Given DAILY FERN Sennosides 17.2 mg 12/28/24 12:00 Sennosides 8.6 [...] equipment to enhance the patient's a functional samaritan Encourage deep breathing exercises and incentive spirometry [...] diabetes mellitus with hyperglycemia: Qualifiers: Diabetes mellitus public housing interviewer insulin use: without penitentiary use Qualified Code(s): 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 I completed a substantive portion of this encounter, the medical decision makingportion of this note in its entirety, including Allied health note review, nursing note review, care consultant note review, discussion with nursing and case management, and more than 50% of my time was spent on counseling and coordination of care, time spent 20 minutes Documented By: Sotero Black MD 12/30/24 1515 Signed By: <Electronically signed by Sotero Black MD> 12/31/24 1514 [facility] Work Phone: [phone]) [phone] Progress note Author Winsome Goff [facility] Note Date/Time December 30, 2024 5:1 3pm [facility] [address] [place] [address] Nephrology Progress Note Signed Patient: Delano Ren MR#: [id number] : 1940 Acct:[id number] Age/Sex: 84 / M Adm Date: 5 Loc: Room: [address] [place] [address] Type: ADM IN Attending Dr: Sotero Black [...] Output I&O: Intake & Output 12/27/24 12/28/24 12/29/24 12/30/24 23:59 23:59 23:59 23:59 Intake Total 1660 [...] 10 Mg Tablet) 10 mg PO DAILY [facility] Stop: 12/28/25 08:59 Last Admin: 12/30/24 10:49 Dose: Not Given Apixaban (Apixaban 2.5 Mg Tablet) 2.5 mg PO BID FERN Stop: 12/28/25 08:59 Last Admin: 12/30/24 10:49 Dose: Not Given Ascorbic Acid (Ascorbic Acid 500 Mg Tablet) 500 mg PO DAILY FERN Stop: 12/28/25 08:59 Last Admin: 12/30/24 10:49 Dose: Not Given Bisacodyl (Bisacodyl 10 Mg Supp.Rect) 10 mg WY DAILY PRN PRN Reason: Constipation Stop: 12/27/25 14:22 Budesonide/Formoterol Fumarate (Budesonide/Formoterol 160-4.5 Mcg 120 Puff/10.2 Gm Hfa.Aer.Ad) 2 puff INHALATION BID [facility] Stop: 12/28/25 08:59 Last Admin: 12/30/24 06:37 Dose: Not Given Calcium Carbonate (Calcium Carbonate/Vitamin D3 500 Mg/200 Unit Tablet) 1 tab PO TID.WITH.MEALS FERN Stop: 12/27/25 16:59 Last Admin: 12/30/24 11:04 Dose: 1 tab Docusate Sodium (Docusate 100 Mg Capsule) 100 mg PO BID PRN PRN Reason: Constipation Stop: 12/27/25 14:22 Docusate Sodium (Docusate Enema 283 Mg/5 Ml Enema) 283 mg WY DAILY PRN PRN Reason: Constipation Stop: 12/27/25 14:22 Ezetimibe (Ezetimibe 10 Mg Tablet) 10 mg PO DAILY [facility] Stop: 12/28/25 08:59 Last Admin: 12/30/24 10:50 Dose: Not Given Hydralazine HCl (Hydralazine 50 Mg Tablet) 100 mg PO TID [facility] Stop: 12/27/25 21:59 Last Admin: 12/30/24 15:11 Dose: 100 mg Ipratropium Casey (Ipratropium Casey 0.5 Mg/2.5 Ml Vial.Neb) 0.5 mg INHALATION QID.RESP [facility] Stop: 12/27/25 19:59 Last Admin: 12/30/24 16:45 Dose: Not Given Isosorbide Dinitrate (Isosorbide Dinitrate 10 Mg Tablet) 10 mg PO TID [facility] Stop: 12/27/25 21:59 Last Admin: 12/30/24 15:11 Dose: 10 mg Lactulose (Lactulose 20 Gm/30 Ml Udc) 30 gm PO DAILY PRN PRN Reason: Constipation Stop: 12/27/25 14:22 Metoprolol Succinate (Metoprolol Succinate 100 Mg Tab.Er.24h) 100 mg PO DAILY [facility] Stop: 12/28/25 08:59 Last Admin: 12/30/24 10:50 [...] 17 Gm Powd.Pack) 17 gm PO DAILY [facility] Stop: 12/28/25 08:59 Last Admin: 12/30/24 10:50 [...] Allergy (Unknown, Verified 12/19/24 08:50) Unknown Reaction Dffyeos-TYW-SzD Reductase Inhibitor (Kuefibp-Ebu-Jlj Reductase Inhibitor) Allergy (Unknown, Verified 12/19/24 08:50) [...] Scott Jr., D.O.12/30/2024 1:24 PM Dictation Location: [place] [address] Venous Duplex 12/30/24 05:00 IMPRESSION: NO EVIDENCE FOR DEEP VEIN THROMBOSIS OR PROXIMAL SUPERFICIAL THROMBOPHLEBITIS INTHE RIGHT OR LEFT LOWER EXTREMITY. Impression dictated by: Dominik Lugo M.D.12/30/2024 12:28 PM Dictation Location: [place] [address] Any impression(s) listed above is documentation that [...] and he follow-up with Dr. Syed in [place]. * Hemoglobin did drop down to 7.7 g/dL after restarting Eliquis 2.5 mg twice a day. Will recheck CBC tomorrow and if hemoglobin continues to drop, will hold Eliquis. Will transfuse if hemoglobin below 7 g/dL. Information about Watchman device was discussed with the patient and his . 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 [place] and stated that he is not required [...] <Electronically signed by MD Winsome Goff> 12/30/24 1018 [facility] Work Phone: [phone] [facility]iology [facility] Work Phone: [phone]) [phone] Progress note Author Zoie Field [facility] Note Date/Time December 29, 2024 4:4 8pm [facility] [address] [place] [address] Hospitalist Progress Note Signed Patient: Delano Ren MR#: [id number] : 1940 Acct:[id number] Age/Sex: 84 / M Adm Date: 5 Loc: Room: 0U9024-0 Type: ADM IN Attending Dr: Sotero Black [...] edema. bilateral venous stasis and varicosities. 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 Left foot no edema warmth or erythema however tender overall SKIN- W/D, good turgor, right dressing in place surgical site not seen Objective Lab Results 12/28/24 05:22 12/28/24 05:22 Meds Allergies and Active Meds Allergies simvastatin Allergy (Unknown, Verified 12/19/24 08:50) Unknown Reaction Fwquwfm-OZY-TqQ Reductase Inhibitor (Rkmtxry-Czc-Stl Reductase Inhibitor) Allergy (Unknown, Verified 12/19/24 08:50) [...] mg 12/27/24 14:23 Bisacodyl 10 Mg Supp.Rect WY 12/27/25 14:22 DAILY PRN Constipation Budesonide/Formoterol Fumarate [...] 14:23 Docusate Enema 283 Mg/5 Ml Enema WY 12/27/25 14:22 DAILY PRN Constipation Ezetimibe 10 mg 12/28/24 09:00 12/29/24 09:30 Ezetimibe 10 Mg Tablet PO 12/28/25 08:59 10 mg DAILY FERN Administration Hydralazine HCl 100 mg 12/27/24 22:00 12/29/24 09:30 Hydralazine 50 Mg Tablet PO 12/27/25 21:59 100 mg TID FERN Administration Ipratropium Casey 0.5 mg 12/27/24 20:00 12/29/24 12:15 Ipratropium Casey 0.5 Mg/2.5 Ml Vial.Neb INHALATION 12/27/25 19:59 [...] By: <Electronically signed by EDWARD Field> 12/29/24 1748 [facility] Work Phone: [phone] Consult note Author Zoie Field [facility] Note Date/Time December 28, 2024 5:1 3pm [facility] [address] [place] [address] Hospitalist Consult Note Signed Patient: Delano Ren MR#: [id number] : 1940 Acct:[id number] Age/Sex: 84 / M Adm Date: 5 Loc: Room: 2Y1481-8 Type: ADM IN Attending Dr: Sotero Blcak MD Copies to: DO Sotero Lauren MD Lynn A Stackhouse-Roby, EDWARD~ HPI DATE OF CONSULTATION: 12/28/24 REQUESTING PROVIDER: Sotero Black Consult Narrative Reason for Consult: COPD, CHF HPI: 84-year-old male with a past medical history significant for HFrEF EF 25%, hypertension, hyperlipidemia, PAF history ablation, chronic anticoagulation, dilated cardiomyopathy post AICD/pacemaker, CAD, COPD, pulmonary hypertension, MOLINA, diabetes, CKD 4, secondary hypothyroidism, hyperuricemia, colon cancer posthemicolectomy. Patient initially presented to [facility] emergency department December 21 after sustaining a fall and subsequent right hip fracture. Transferred to [facility] for further management. Preoperative cardiac clearance obtained. [...] negative unless noted below or in HPI [facility] Medical History Former smoker quit at age ~44 COPD (chronic obstructive pulmonary disease) cpap use Screening PSA (prostate specific antigen) PSA: 0.91 - 07/2024 Chronic bronchitis, simple Chronic HFrEF (heart failure with reduced ejection fraction) Echo: LVEF 25%, RV reduced function, RVSP 61, ASNJAY, mod MR - 02/2023 Type 2 diabetes [...] Allergy (Unknown, Verified 12/19/24 08:50) Unknown Reaction Zonxpzo-GIR-JxZ Reductase Inhibitor (Txnteca-Cxw-Oml Reductase Inhibitor) Allergy (Unknown, Verified 12/19/24 08:50) [...] mg 12/27/24 14:23 Bisacodyl 10 Mg Supp.Rect WY 12/27/25 14:22 DAILY PRN Constipation Budesonide/Formoterol Fumarate 2 puff 12/28/24 09:00 12/28/24 06:17 Budesonide/Formoterol 160-4.5 Mcg 120 Puff/10.2 Gm Hfa.Aer.Ad INHALATION 12/28/25 08:59 Not Given BID FERN Calcium Carbonate 1 tab 12/27/24 17:00 12/28/24 12:02 Calcium Carbonate/Vitamin D3 500 Mg/200 Unit Tablet PO 12/27/25 16:59 1 tab TID.WITH.MEALS FERN Administration Docusate Sodium 100 mg 12/27/24 14:23 Docusate 100 Mg Capsule PO 12/27/25 14:22 BID PRN Constipation Docusate Sodium 283 mg 12/27/24 14:23 Docusate Enema 283 Mg/5 Ml Enema WY 12/27/25 14:22 DAILY PRN Constipation Ezetimibe 10 mg 12/28/24 09:00 12/28/24 09:20 Ezetimibe 10 Mg Tablet PO 12/28/25 08:59 10 mg DAILY FERN Administration Hydralazine HCl 100 mg 12/27/24 22:00 12/28/24 14:52 Hydralazine 50 Mg Tablet PO 12/27/25 21:59 100 mg TID FERN Administration Ipratropium Casey 0.5 mg 12/27/24 20:00 12/28/24 14:49 Ipratropium Casey 0.5 Mg/2.5 Ml Vial.Neb INHALATION 12/27/25 19:59 [...] % (Auto) N/A, Lymph % (Auto) N/A, Hood % (Auto) N/A, Eos % (Auto) N/A,Baso % (Auto) N/A, Nucleat RBC Rel Count N/A, Neut # (Auto) N/A, Lymph # (Auto) N/A, Hood # (Auto) N/A, Eos # (Auto) N/A, [...] By: <Electronically signed by EDWARD Field> 12/28/24 1756 [facility] Work Phone: [phone] Progress note Author Zahida Flowers [facility] Note Date/Time December 28, 2024 2:4 4pm [facility] [address] [place] [address] Nephrology Progress Note Signed Patient: Delano Ren MR#: [id number] : 1940 Acct:[id number] Age/Sex: 84 / M Adm Date: 5 Loc: Room: [address] [place] [address] Type: ADM IN Attending Dr: Sotero Black [...] Skin: No rashes , warm to touch DUST SAMPLER: Awake,Alert, following simple command Musculoskeletal: No swelling [...] Bisacodyl (Bisacodyl 10 Mg Supp.Rect) 10 mg WY DAILY PRN PRN Reason: Constipation Stop: 12/27/25 14:22 Budesonide/Formoterol Fumarate (Budesonide/Formoterol 160-4.5 Mcg 120 Puff/10.2 Gm Hfa.Aer.Ad) 2 puff INHALATION BID FERN Stop: 12/28/25 08:59 Last Admin: 12/28/24 06:17 Dose: Not Given Calcium Carbonate (Calcium Carbonate/Vitamin D3 500 Mg/200 Unit Tablet) 1 tab PO TID.WITH.MEALS FERN Stop: 12/27/25 16:59 Last Admin: 12/28/24 12:02 Dose: 1 tab Docusate Sodium (Docusate 100 Mg Capsule) 100 mg PO BID PRN PRN Reason: Constipation Stop: 12/27/25 14:22 Docusate Sodium (Docusate Enema 283 Mg/5 Ml Enema) 283 mg WY DAILY PRN PRN Reason: Constipation Stop: 12/27/25 14:22 Ezetimibe (Ezetimibe 10 Mg Tablet) 10 mg PO DAILY FERN Stop: 12/28/25 08:59 Last Admin: 12/28/24 09:20 Dose: 10 mg Hydralazine HCl (Hydralazine 50 Mg Tablet) 100 mg PO TID [facility] Stop: 12/27/25 21:59 Last Admin: 12/28/24 09:20 Dose: 100 mg Ipratropium Casey (Ipratropium Casey 0.5 Mg/2.5 Ml Vial.Neb) 0.5 mg INHALATION QID.RESP [facility] Stop: 12/27/25 19:59 Last Admin: 12/28/24 11:40 Dose: Not Given Isosorbide Dinitrate (Isosorbide Dinitrate 10 Mg Tablet) 10 mg PO TID [facility] Stop: 12/27/25 21:59 Last Admin: 12/28/24 09:23 Dose: 10 mg Lactulose (Lactulose 20 Gm/30 Ml Udc) 30 gm PO DAILY PRN PRN Reason: Constipation Stop: 12/27/25 14:22 Metoprolol Succinate (Metoprolol Succinate 100 Mg Tab.Er.24h) 100 mg PO DAILY [facility] Stop: 12/28/25 08:59 Last Admin: 12/28/24 09:20 [...] 17 Gm Powd.Pack) 17 gm PO DAILY [facility] Stop: 12/28/25 08:59 Last Admin: 12/28/24 09:20 [...] 10 Ml Syringe) 10 ml IV-PUSH Q8H [facility] Stop: 12/28/25 05:59 Last Admin: 12/28/24 05:35 Dose: 10 ml Vitamin D (Cholecalciferol 125 Mcg (5,000 Units) Capsule) 125 mcg PO DAILY FERN Stop: 12/28/25 08:59 Last Admin: 12/28/24 09:20 Dose: 125 mcg Allergies simvastatin Allergy (Unknown, Verified 12/19/24 08:50) Unknown Reaction Oibyycs-QRT-VqI Reductase Inhibitor (Uxqswxq-Cqw-Zsd Reductase Inhibitor) Allergy (Unknown, Verified 12/19/24 08:50) [...] <Electronically signed by Zahida Flowers MD> 12/28/24 1444 [facility] Work Phone: [phone] History and physical note Author Sotero Black [facility] Note Date/Time December 28, 2024 12: 40pm [facility] [address] [place] [address] Physiatry (Rehab) H&P Signed Patient: Delano Ren MR#: [id number] : 1940 Acct:[id number] Age/Sex: 84 / M Adm Date: 5 Loc: Room: 7Z2175-3 Type: ADM IN Attending Dr: Sotero Black [...] anemia. He is cleared to resume ittoday. [facility] Medical History Former smoker quit at age [...] Allergy (Unknown, Verified 12/19/24 08:50) Unknown Reaction Wrsixsm-TTN-FxG Reductase Inhibitor (Mqwojtg-Bwb-Yge Reductase Inhibitor) Allergy (Unknown, Verified 12/19/24 08:50) [...] Bisacodyl (Bisacodyl 10 Mg Supp.Rect) 10 mg WY DAILY PRN PRN Reason: Constipation Stop: 12/27/25 [...] Enema 283 Mg/5 Ml Enema) 283 mg WY DAILY PRN PRN Reason: Constipation Stop: 12/27/25 14:22 Ezetimibe (Ezetimibe 10 Mg Tablet) 10 mg PO DAILY FERN Stop: 12/28/25 08:59 Hydralazine HCl (Hydralazine 50 Mg Tablet) 100 mg PO TID FERN Stop: 12/27/25 21:59 Ipratropium Casey (Ipratropium Casey 0.5 Mg/2.5 Ml Vial.Neb) 0.5 mg INHALATION QID.RESP FERN Stop: 12/27/25 19:59 Isosorbide Dinitrate (Isosorbide Dinitrate 10 Mg Tablet) 10 mg PO TID [facility] Stop: 12/27/25 21:59 Lactulose (Lactulose 20 Gm/30 Ml Udc) 30 gm PO DAILY PRN PRN Reason: Constipation Stop: 12/27/25 14:22 Metoprolol Succinate (Metoprolol Succinate 100 Mg Tab.Er.24h) 100 mg PO DAILY [facility] Stop: 12/28/25 08:59 Oxycodone HCl (Oxycodone Ir 5 Mg Tablet) 5 mg PO Q4HR PRN PRN Reason: Pain Scale 4 - 7 Oxycodone HCl (Oxycodone Ir 5 Mg Tablet) 10 mg PO Q4HR PRN PRN Reason: Pain Scale 8 - 10 Polyethylene Glycol (Polyethylene Glycol 3350 17 Gm Powd.Pack) 17 gm PO DAILY [facility] Stop: 12/28/25 08:59 Sennosides (Sennosides 8.6 Mg Tablet) 17.2 mg PO DAILY@12 PRN PRN Reason: If no BM in 2 days Stop: 12/28/25 11:59 Sodium Chloride (Sodium Chloride 0.9 % 10 Ml Syringe) 0 ml IV-PUSH PRN PRN PRN Reason: Flush Stop: 12/27/25 14:22 Vitamin D (Cholecalciferol 125 Mcg (5,000 Units) Capsule) 125 mcg PO DAILY [facility] Stop: 12/28/25 08:59 Exam Physical Exam Vital [...] 14 days Expected Discharge Destination: Home Rehabilitation [facility]: 05.26 Primary Diagnosis: as above Patient?s/Family?s anticipated [...] 24 hour daily monitoring and intervention from Hardware Engineering Manager as well as other consulting physicians including internal medicine as well as 24 hour daily anglesmith helper nursing - for medical safe / optimal [...] equipment to enhance the patient's a functional samaritan Encourage deep breathing exercises and incentive spirometry [...] diabetes mellitus with hyperglycemia: Qualifiers: Diabetes mellitus public housing interviewer insulin use: without penitentiary use Qualified Code(s): E11.65 - Type 2 [...] Allied health note review, nursing note review, care consultant note review, discussion with nursing and case management, and more than 50% of my time was spent on counseling and coordination of care, time spent 65 minutes Patient was personally seen by me, Dr. Black, on the day of encounter, within 24hours of rehab admission, reviewed the history and the relevant portions of the chart, including current orders, allied health and care consultant notes, labs/imaging and performed mckenna elements of exam and I formulated the plan of care and facilitated the medical decision making. Documented By: Sotero Black MD 12/27/24 3960 Signed By: <Electronically signed by Sotero Black MD> 12/28/24 8474 [facility] Work Phone: [phone] Progress note Author Emile Reynolds [facility] Note Date/Time December 26, 2024 1:3 1pm [facility] [address] [place] [address] Hospitalist Progress Note Signed Patient: Delano Ren MR#: [id number] : 1940 Acct:[id number] Age/Sex: 84 / M Adm Date: 5 Loc: Room: [address] [place] [address] Type: ADM IN Attending Dr: Emile Reynolds [...] Allergy (Unknown, Verified 12/19/24 08:50) Unknown Reaction Xfzxqyc-RCX-AcA Reductase Inhibitor (Vcslleh-Rva-Fvp Reductase Inhibitor) Allergy (Unknown, Verified 12/19/24 08:50) [...] Emile Reynolds DO 12/26/24 1324 Signed By: <Electronically signed by Emile Reynolds DO> 12/26/24 1331 [facility] Work Phone: [phone] Progress note Author Zahida Flowers [facility] Note Date/Time December 26, 2024 12: 31pm [facility] [address] [place], [place] [id number] Nephrology Progress Note Signed Patient: Delano Ren MR#: [id number] : 1940 Acct:[id number] Age/Sex: 84 / M Adm Date: 5 Loc: 4N Room: [address] [place] [address] Type: ADM IN Attending Dr: Emile Reynolds [...] Skin: No rashes , warm to touch DUST SAMPLER: Awake,Alert, following simple command Musculoskeletal: No swelling [...] 100 Mg Tablet) 100 mg PO DAILY [facility] Stop: 12/22/25 08:59 Last Admin: 12/26/24 08:10 Dose: 100 mg Amiodarone HCl (Amiodarone 200 Mg Tablet) 200 mg PO DAILY [facility] Stop: 12/22/25 08:59 Last Admin: 12/26/24 08:11 Dose: 200 mg Amlodipine Besylate (Amlodipine 10 Mg Tablet) 10 mg PO DAILY [facility] Stop: 12/22/25 08:59 Last Admin: 12/24/24 08:38 Dose: Not Given Amoxicillin/Clavulanate Potassium (Amoxicillin/Clav 500-125 Mg Tablet) 1 tab POBID [facility] Stop: 12/28/24 20:59 Last Admin: 12/26/24 08:11 Dose: 1 tab Ascorbic Acid (Ascorbic Acid 500 Mg Tablet) 500 mg PO DAILY [facility] Stop: 12/23/25 08:59 Last Admin: 12/26/24 08:11 Dose: 500 mg Azithromycin (Azithromycin 250 Mg Tablet) 500 mg PO Q24H [facility] Stop: 12/28/24 23:00 Last Admin: 12/25/24 16:38 [...] 100 Mg Capsule) 100 mg PO BID [facility] Stop: 12/23/25 20:59 Last Admin: 12/26/24 08:10 Dose: 100 mg Fluticasone/Umeclidinium/Vilanterol (Fluticas/Umeclidin/Vilanter 200-62.5-25 Mcg28 Puff Inhaler *Nf*) 1 puff INHALATION DAILY [facility] Stop: 12/23/25 08:59 Last Admin: 12/26/24 10:38 Dose: 1 puff Furosemide (Furosemide 80 Mg Tablet) 80 mg PO DAILY [facility] Stop: 12/25/25 10:14 Last Admin: 12/26/24 08:11 Dose: 80 mg Hydralazine HCl (Hydralazine 20 Mg/Ml Vial) 10 mg IV-PUSH Q4H PRN PRN Reason: if SBP > 185 Stop: 12/21/25 22:29 Hydralazine HCl (Hydralazine 50 Mg Tablet) 100 mg PO TID FERN Stop: 12/22/25 08:59 Last Admin: 12/26/24 08:12 [...] 10 Mg Tablet) 10 mg PO TID [facility] Stop: 12/22/25 08:59 Last Admin: 12/26/24 08:11 Dose: 10 mg Lidocaine HCl (Lidocaine 1% 50 Ml Vial) 0.1 ml INTRADERMA PREOP PRN PRN Reason: Venipuncture x 1 Dose Magnesium Hydroxide (Magnesium Hydroxide Susp 30 Ml Udc) 30 ml PO DAILY PRN PRN Reason: Constipation Stop: 12/22/25 11:11 Metoprolol Succinate (Metoprolol Succinate 100 Mg Tab.Er.24h) 100 mg PO DAILY [facility] Stop: 12/22/25 08:59 Last Admin: 12/26/24 08:11 Dose: 100 mg Multivitamins (Multivitamin 1 Tab Tablet) 1 tab PO DAILY [facility] Stop: 12/23/25 08:59 Last Admin: 12/26/24 08:10 [...] 17 Gm Powd.Pack) 17 gm PO DAILY [facility] Stop: 12/22/25 08:59 Last Admin: 12/26/24 08:10 Dose: 17 gm Sennosides (Sennosides 8.6 Mg Tablet) 17.2 mg PO BID FERN Stop: 12/22/25 08:59 Last Admin: 12/26/24 08:11 Dose: 17.2 mg Sodium Chloride (Sodium Chloride 0.9 % 10 Ml Syringe) 0 ml IV-PUSH PRN PRN PRN Reason: Flush Stop: 12/22/25 11:11 Allergies simvastatin Allergy (Unknown, Verified 12/19/24 08:50) Unknown Reaction Wkbjkqs-JHZ-MkN Reductase Inhibitor (Cjvgfgo-Bnt-Cpu Reductase Inhibitor) Allergy (Unknown, Verified 12/19/24 08:50) [...] mellitus with hyperglycemia: Assessment/Problem Details: He has pzx-hidpwge-ullmrvyjb type 2 diabetes mellitus currently on diet [...] <Electronically signed by Zahida Flowers MD> 12/26/24 1231 [facility] Work Phone: 1([phone]) [phone] [address] Hospitalist Progress Note Signed Patient: Delano Ren MR#: [id number] : 1940 Acct:[id number] Age/Sex: 84 / M Adm Date: 5 Loc: Room: [address] [place] [address] Type: ADM IN Attending Dr: Emile Reynolds DO Copies to: ~ Date of Service: 12/26/2024 Subjective Subjective Narrative: seem and evaluated, he is sitting up in the chair. He did have some bleeding on his bandage overnight. He understands he needs to participate more with therapy in order to be strong enough for a goodchance with inpatient rehab. He is still[place]. Does have some wheezing this AM which [...] Allergy (Unknown, Verified 12/19/24 08:50) Unknown Reaction Zjrlumd-AYR-TlJ Reductase Inhibitor (Njbrvby-Eaj-Cvf Reductase Inhibitor) Allergy (Unknown, Verified 12/19/24 08:50) [...] Tablet PO 12/23/25 08:59 1 tab DAILY FREN Administration Ondansetron HCl 4 mg 12/22/24 11:12 [...] DO 12/26/24 1324 Signed By: 12/26/24 1331 [facility]03-13-[address] [address] Nephrology Progress Note Signed Patient: Delano Ren MR#: [id number] : 1940 Acct:[id number] Age/Sex: 84 / M Adm Date: 5 Loc: Room: [address] [place] [address] Type: ADM IN Attending Dr: Emile Reynolds [...] Skin: No rashes , warm to touch DUST SAMPLER: Awake,Alert, following simple command Musculoskeletal: No swelling [...] 50 Mg Tablet) 100 mg PO TID [facility] Stop: 12/22/25 08:59 Last Admin: 12/26/24 08:12 [...] 10 Mg Tablet) 10 mg PO TID [facility] Stop: 12/22/25 08:59 Last Admin: 12/26/24 08:11 Dose: 10 mg Lidocaine HCl (Lidocaine 1% 50 Ml Vial) 0.1 ml INTRADERMA PREOP PRN PRN Reason: Venipuncture x 1 Dose Magnesium Hydroxide (Magnesium Hydroxide Susp 30 Ml Udc) 30 ml PO DAILY PRN PRN Reason: Constipation Stop: 12/22/25 11:11 Metoprolol Succinate (Metoprolol Succinate 100 Mg Tab.Er.24h) 100 mg PO DAILY [facility] Stop: 12/22/25 08:59 Last Admin: 12/26/24 08:11 Dose: 100 mg Multivitamins (Multivitamin 1 Tab Tablet) 1 tab PO DAILY [facility] Stop: 12/23/25 08:59 Last Admin: 12/26/24 08:10 [...] Allergy (Unknown, Verified 12/19/24 08:50) Unknown Reaction Uebqrew-PFP-NbE Reductase Inhibitor (Aqdaxnq-Yjl-Lqw Reductase Inhibitor) Allergy (Unknown, Verified 12/19/24 08:50) [...] mellitus with hyperglycemia: Assessment/Problem Details: He has agn-lnunyfl-jzbhhkmwn type 2 diabetes mellitus currently on diet [...] MD 12/26/24 1230 Signed By: 12/26/24 1231 [facility]03-12-2025 Consult note Author Clyde Bedolla [facility] Note Date/Time December 25, 2024 2:0 7pm [facility] [address] [place] [address] Physiatry (Rehab) Consult Note Signed Patient: Delano Ren MR#: [id number] : 1940 Acct:[id number] Age/Sex: 84 / M Adm Date: 5 Loc: 4N Room: 7D7980-5 Type: ADM IN Attending Dr: Emile Reynolds DO Copies to: DO Clyde Lauren MD Shawn J Warner, DO~ HPI Consult Date: 12/25/24 Requesting Physician: Emile J Reynolds, DO Primary Care Provider: Yas Linda DO Consult Narrative Reason for consult: Evaluation for inpatient rehab HPI: Mr. 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, afib on Eliquis, CKD with baseline cr 2.7 who presented to the [facility] following a fall from a step and [...] negative unless noted below or in HPI [facility] Medical History (Updated 12/24/24 @ 15:28 by [...] Allergy (Unknown, Verified 12/19/24 08:50) Unknown Reaction Ghkklzc-EZS-DxZ Reductase Inhibitor (Mugtpyu-Dal-Kvd Reductase Inhibitor) Allergy (Unknown, Verified 12/19/24 08:50) [...] % (Auto) 79.2 Lymph % (Auto) 9.0 Hood % (Auto) 10.2 Eos % (Auto) 1.4 Baso % (Auto) 0.2 Nucleat RBC Rel Count 0.1 Neut # (Auto) 6.3 Lymph # (Auto) 0.7 L Hood # (Auto) 0.8 Eos # (Auto) 0.1 [...] diabetes mellitus with hyperglycemia: Qualifiers: Diabetes mellitus penitentiary insulin use: without public housing interviewer use Qualified Code(s): 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 I completed a substantive portion of this encounter, the medical decision makingportion of this note in its entirety, including Allied health note review, nursing note review, care consultant note review, discussion with nursing and case management, and more than 50% of my time was spent on counseling and coordinationof care, time spent 50 minutes Documented By: Clyde Bedolla MD 1323 Signed By: <Electronically signed by Clyde Bedolla MD> 12/25/24 1407 [facility] Work Phone: 1(393) 713-869003-12-2025 Progress note Author Emile Reynolds [facility] Note Date/Time December 25, 2024 12: 17pm [facility] [address] [place] [address] Hospitalist Progress Note Signed Patient: Delano Ren MR#: [id number] : 1940 Acct:[id number] Age/Sex: 84 / M Adm Date: 5 Loc: Room: [address] [place] [address] Type: ADM IN Attending Dr: Emile Reynolds [...] Allergy (Unknown, Verified 12/19/24 08:50) Unknown Reaction Wrpzqjf-YJO-DfL Reductase Inhibitor (Ydljglq-Qec-Rlp Reductase Inhibitor) Allergy (Unknown, Verified 12/19/24 08:50) [...] <Electronically signed by Emile Reynolds DO> 12/25/24 1217 [facility] Work Phone: 1(153) 164-263503-12-2025 [place] [address] Physiatry (Rehab) Consult Note Signed Patient: Delano Ren MR#: [id number] : 1940 Acct:[id number] Age/Sex: 84 / M Adm Date: 5 Loc: Room: [address] [place] [address] Type: ADM IN Attending Dr: Emile Reynolds [...] baseline cr 2.7 who presented to the [facility] following a fall from a step and [...] negative unless noted below or in HPI [facility] Medical History (Updated 12/24/24 @ 15:28 by [...] Allergy (Unknown, Verified 12/19/24 08:50) Unknown Reaction Wuzxtxs-PUI-GnN Reductase Inhibitor (Pdzcmzn-Qfn-Dmi Reductase Inhibitor) Allergy (Unknown, Verified 12/19/24 08:50) [...] distress Abdomen soft, non distended, non tender NATLAYA. RLE strength limited by pain Speech is normal Results - Phys. Rehab Labs Labs: Laboratory Results - last 24 hr 12/23/24 12/25/24 04:20 06:00 Corrected WBC 8.0 Uncorrected WBC Count 8.0 RBC 2.19 L Hgb 7.2 L Hct 20.9 L MCV 95.3 MCH 32.8 MCHC 34.4 RDW 14.6 Plt Count 137 L MPV 8.0 Neut % (Auto) 79.2 Lymph % (Auto) 9.0 Hood % (Auto) 10.2 Eos % (Auto) 1.4 Baso % (Auto) 0.2 Nucleat RBC Rel Count 0.1 Neut # (Auto) 6.3 Lymph # (Auto) 0.7 L Hood # (Auto) 0.8 Eos # (Auto) 0.1 [...] diabetes mellitus with hyperglycemia: Qualifiers: Diabetes mellitus penitentiary insulin use: without penitentiary use Qualified Code(s): 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 I completed a substantive portion of this encounter, the medical decision makingportion of this note in its entirety, including Allied health note review, nursing note review, care consultant note review,discussion with nursing and case management, and more than 50% of my time was spent on counseling and coordinationof care, time spent 50 minutes Documented By: Clyde Bedolla MD 1323 Signed By: 12/25/24 1407 [facility]03-12-2025 Progress note Author Zahida Flowers [facility] Note Date/Time December 25, 2024 12: 04pm [facility] [address] [place] [address] Nephrology Progress Note Signed Patient: Delano Ren MR#: [id number] : 1940 Acct:[id number] Age/Sex: 84 / M Adm Date: 5 Loc: 4N Room: [address] [place] [address] Type: ADM IN Attending Dr: Emile Reynolds [...] Skin: No rashes , warm to touch DUST SAMPLER: Awake,Alert, following simple command Musculoskeletal: No swelling or limitation of movement of the large joints Psychiatric: Cooperative, normal mood and affect Objective Intake and Output I&O: Intake & Output 12/23/24 12/23/24 12/24/24 12/25/24 00:59 23:59 23:59 23:59 Intake Total 2310 / 2310 2800 / 2800 2300 / 2300 Output Total 1999 / 1999 1100 / 1100 1150 / [...] 100 Mg Tablet) 100 mg PO DAILY [facility] Stop: 12/22/25 08:59 Last Admin: 12/25/24 08:41 Dose: 100 mg Amiodarone HCl (Amiodarone 200 Mg Tablet) 200 mg PO DAILY [facility] Stop: 12/22/25 08:59 Last Admin: 12/25/24 08:40 Dose: 200 mg Amlodipine Besylate (Amlodipine 10 Mg Tablet) 10 mg PO DAILY [facility] Stop: 12/22/25 08:59 Last Admin: 12/24/24 08:38 Dose: Not Given Amoxicillin/Clavulanate Potassium (Amoxicillin/Clav 500-125 Mg Tablet) 1 tab POBID [facility] Stop: 12/28/24 20:59 Last Admin: 12/25/24 08:40 Dose: 1 tab Ascorbic Acid (Ascorbic Acid 500 Mg Tablet) 500 mg PO DAILY [facility] Stop: 12/23/25 08:59 Last Admin: 12/25/24 08:41 Dose: 500 mg Azithromycin (Azithromycin 250 Mg Tablet) 500 mg PO Q24H [facility] Stop: 12/28/24 23:00 Last Admin: 12/24/24 16:44 [...] 100 Mg Capsule) 100 mg PO BID [facility] Stop: 12/23/25 20:59 Last Admin: 12/25/24 08:41 Dose: 100 mg Fluticasone/Umeclidinium/Vilanterol (Fluticas/Umeclidin/Vilanter 200-62.5-25 Mcg28 Puff Inhaler *Nf*) 1 puff INHALATION DAILY [facility] Stop: 12/23/25 08:59 Last Admin: 12/25/24 08:42 Dose: 1 puff Furosemide (Furosemide 80 Mg Tablet) 80 mg PO DAILY [facility] Stop: 12/25/25 10:14 Last Admin: 12/25/24 11:33 Dose: 80 mg Hydralazine HCl (Hydralazine 20 Mg/Ml Vial) 10 mg IV-PUSH Q4H PRN PRN Reason: if SBP > 185 Stop: 12/21/25 22:29 Hydralazine HCl (Hydralazine 50 Mg Tablet) 100 mg PO TID [facility] Stop: 12/22/25 08:59 Last Admin: 12/25/24 [...] 10 Mg Tablet) 10 mg PO TID [facility] Stop: 12/22/25 08:59 Last Admin: 12/25/24 08:41 Dose: 10 mg Lidocaine HCl (Lidocaine 1% 50 Ml Vial) 0.1 ml INTRADERMA PREOP PRN PRN Reason: Venipuncture x 1 Dose Magnesium Hydroxide (Magnesium Hydroxide Susp 30 Ml Udc) 30 ml PO DAILY PRN PRN Reason: Constipation Stop: 12/22/25 11:11 Metoprolol Succinate (Metoprolol Succinate 100 Mg Tab.Er.24h) 100 mg PO DAILY [facility] Stop: 12/22/25 08:59 Last Admin: 12/25/24 08:40 Dose: 100 mg Multivitamins (Multivitamin 1 Tab Tablet) 1 tab PO DAILY [facility] Stop: 12/23/25 08:59 Last Admin: 12/25/24 08:41 [...] 17 Gm Powd.Pack) 17 gm PO DAILY [facility] Stop: 12/22/25 08:59 Last Admin: 12/25/24 08:39 Dose: 17 gm Sennosides (Sennosides 8.6 Mg Tablet) 17.2 mg PO BID [facility] Stop: 12/22/25 08:59 Last Admin: 12/25/24 08:39 Dose: 17.2 mg Sodium Chloride (Sodium Chloride 0.9 % 10 Ml Syringe) 0 ml IV-PUSH PRN PRN PRN Reason: Flush Stop: 12/22/25 11:11 Allergies simvastatin Allergy (Unknown, Verified 12/19/24 08:50) Unknown Reaction Grzuogz-IVG-YfR Reductase Inhibitor (Wdwhphl-Kjg-Emm Reductase Inhibitor) Allergy (Unknown, Verified 12/19/24 08:50) [...] mellitus with hyperglycemia: Assessment/Problem Details: He has mku-uxaecei-ecjgmitvt type 2 diabetes mellitus currently on diet [...] Zahida Flowers MD 12/25/24 1159 Signed By: <Electronically signed by Zahida Flowers MD> 12/25/24 1204 [facility] Work Phone: 1(862) 374-531003-12-2025 Progress note Author Walker Soria [facility] Note Date/Time December 25, 2024 10: 25am [facility] [address] [place] [address] Orthopedic Progress Note Signed Patient: Delano Ren MR#: [id number] : 1940 Acct:[id number] Age/Sex: 84 / M Adm Date: 5 Loc: Room: [address] [place] [address] Type: ADM IN Attending Dr: Emile Reynolds [...] % (Auto) 79.2 Lymph % (Auto) 9.0 Hood % (Auto) 10.2 Eos % (Auto) 1.4 Baso % (Auto) 0.2 Nucleat RBC Rel Count 0.1 Neut # (Auto) 6.3 Lymph # (Auto) 0.7 L Hood # (Auto) 0.8 Eos # (Auto) 0.1 [...] <Electronically signed by MD Walker Soria> 12/25/24 [facility]5 [facility] Work Phone: 1(692) 323-765003-12-2025 [place] [address] Hospitalist Progress Note Signed Patient: Delano Ren MR#: [id number] : 1940 Acct:[id number] Age/Sex: 84 / M Adm Date: 5 Loc: Room: 7Q7601-2 Type: ADM IN Attending Dr: Emile Reynolds [...] Allergy (Unknown, Verified 12/19/24 08:50) Unknown Reaction Wltpjcj-ULJ-HeR Reductase Inhibitor (Eaqviku-Fpi-Say Reductase Inhibitor) Allergy (Unknown, Verified 12/19/24 08:50) [...] inpatient rehab Documented By: Emile Reynolds DO 12/25/241212 Signed By: 12/25/24 1217 [facility]03-12-2025 Progress note Author Walker Soria [facility] Note Date/Time December 25, 2024 10: 15am [facility] [address] [place] [address] Orthopedic Progress Note Signed Patient: Delano Ren MR#: [id number] : 1940 Acct:[id number] Age/Sex: 84 / M Adm Date: 5 Loc: Room: [address] [place] [address] Type: ADM IN Attending Dr: Emile Reynolds [...] % (Auto) 89.8 Lymph % (Auto) 3.3 Hood % (Auto) 6.6 Eos % (Auto) 0.1 Baso % (Auto) 0.2 Nucleat RBC Rel Count 0.0 Neut # (Auto) 11.3 H Lymph # (Auto) 0.4 L Hood # (Auto) 0.8 Eos # (Auto) 0.0 [...] 7.7 Neut % (Auto) Lymph % (Auto) Hood % (Auto) Eos % (Auto) Baso % (Auto) Nucleat RBC Rel Count Neut # (Auto) Lymph # (Auto) Hood # (Auto) Eos # (Auto) Baso # [...] Walker Soria MD 12/24/24 1119 Signed By: <Electronically signed by MD Walker Soria> 12/25/24 1015 [facility] Work Phone: 1(220) 746-682003-12-[address] [address] Nephrology Progress Note Signed Patient: Delano Ren MR#: [id number] : 1940 Acct:[id number] Age/Sex: 84 / M Adm Date: 5 Loc: Room: 1V6068-3 Type: ADM IN Attending Dr: Emile Reynolds [...] Skin: No rashes , warm to touch DUST SAMPLER: Awake,Alert, following simple command Musculoskeletal: No swelling [...] DAILY [facility] Stop: 12/25/25 10:14 Last Admin: 12/25/24 11:33 Dose: 80 mg Hydralazine HCl (Hydralazine 20 Mg/Ml Vial) 10 mg IV-PUSH Q4H PRN PRN Reason: if SBP > 185 Stop: 12/21/25 22:29 Hydralazine HCl (Hydralazine 50 Mg Tablet) 100 mg PO TID [facility] Stop: 12/22/25 08:59 Last Admin: 12/25/24 08:40 [...] 10 Mg Tablet) 10 mg PO TID [facility] Stop: 12/22/25 08:59 Last Admin: 12/25/24 08:41 Dose: 10 mg Lidocaine HCl (Lidocaine 1% 50 Ml Vial) 0.1 ml INTRADERMA PREOP PRN PRN Reason: Venipuncture x 1 Dose Magnesium Hydroxide (Magnesium Hydroxide Susp 30 Ml Udc) 30 ml PO DAILY PRN PRN Reason: Constipation Stop: 12/22/25 11:11 Metoprolol Succinate (Metoprolol Succinate 100 Mg Tab.Er.24h) 100 mg PO DAILY [facility] Stop: 12/22/25 08:59 Last Admin: 12/25/24 08:40 Dose: 100 mg Multivitamins (Multivitamin 1 Tab Tablet) 1 tab PO DAILY [facility] Stop: 12/23/25 08:59 Last Admin: 12/25/24 08:41 [...] Allergy (Unknown, Verified 12/19/24 08:50) Unknown Reaction Cuwermt-ZLJ-FvY Reductase Inhibitor (Jetxjwu-Cyk-Iwr Reductase Inhibitor) Allergy (Unknown, Verified 12/19/24 08:50) [...] mellitus with hyperglycemia: Assessment/Problem Details: He has fle-pimyogp-lryizculj type 2 diabetes mellitus currently on diet [...] MD 12/25/24 1159 Signed By: 12/25/24 1204 [facility]03-12-20[place] [address] Orthopedic Progress Note Signed Patient: Delano Ren MR#: [id number] : 1940 Acct:[id number] Age/Sex: 84 / M Adm Date: 5 Loc: 4N Room: [address] [place] [address] Type: ADM IN Attending Dr: Emile Reynolds [...] % (Auto) 79.2 Lymph % (Auto) 9.0 Hood % (Auto) 10.2 Eos % (Auto) 1.4 Baso % (Auto) 0.2 Nucleat RBC Rel Count 0.1 Neut # (Auto) 6.3 Lymph # (Auto) 0.7 L Hood # (Auto) 0.8 Eos # (Auto) 0.1 [...] Soria MD 12/25/24 1024 Signed By: 12/25/24 [facility]5 [facility]03-12-2025 [place] [address] Orthopedic Progress Note Signed Patient: Delano Ren MR#: [id number] : 1940 Acct:[id number] Age/Sex: 84 / M Adm Date: 5 Loc: Room: [address] [place] [address] Type: ADM IN Attending Dr: Emile Reynolds [...] % (Auto) 89.8 Lymph % (Auto) 3.3 Hood % (Auto) 6.6 Eos % (Auto) 0.1 Baso % (Auto) 0.2 Nucleat RBC Rel Count 0.0 Neut # (Auto) 11.3 H Lymph # (Auto) 0.4 L Hood # (Auto) 0.8 Eos # (Auto) 0.0 [...] 7.7 Neut % (Auto) Lymph % (Auto) Hood % (Auto) Eos % (Auto) Baso % (Auto) Nucleat RBC Rel Count Neut # (Auto) Lymph # (Auto) Hood # (Auto) Eos # (Auto) Baso # [...] and have these sent to our office [place] out 14 days postop Documented By: Walker Soria MD 12/24/24 1119 Signed By: 12/25/[address] [place], [place] [address]751903-11-2025 Consult note Author Zahida Flowers [facility] Note Date/Time December 24, 2024 3:4 8pm [facility] [address] [place] [address] Nephrology Consult Note Signed Patient: Delano Ren MR#: [id number] : 1940 Acct:[id number] Age/Sex: 84 / M Adm Date: 5 Loc: Room: [address] [place] [address] Type: ADM IN Attending Dr: Emile Reynolds [...] polydipsia Dermatological: denies any itching or rash [facility] Medical History (Updated 12/24/24 @ 15:28 by [...] 2 Heart disease Brother Cancer Son Blackfan Lgo anemia Social History Smoking Status: Never smoker Tobacco Type: cigarettes Substance Use Type: None Meds Medications & Allergies Allergies simvastatin Allergy (Unknown, Verified 12/19/24 08:50) Unknown Reaction Fpglfsy-UJT-BeZ Reductase Inhibitor (Vgowfbv-Afv-Oqr Reductase Inhibitor) Allergy (Unknown, Verified 12/19/24 08:50) [...] 100 Mg Tablet) 100 mg PO DAILY [facility] Stop: 12/22/25 08:59 Last Admin: 12/24/24 08:37 Dose: 100 mg Amiodarone HCl (Amiodarone 200 Mg Tablet) 200 mg PO DAILY [facility] Stop: 12/22/25 08:59 Last Admin: 12/24/24 08:37 Dose: 200 mg Amlodipine Besylate (Amlodipine 10 Mg Tablet) 10 mg PO DAILY [facility] Stop: 12/22/25 08:59 Last Admin: 12/24/24 08:38 Dose: Not Given Amoxicillin/Clavulanate Potassium (Amoxicillin/Clav 500-125 Mg Tablet) 1 tab POBID [facility] Stop: 12/28/24 20:59 Ascorbic Acid (Ascorbic Acid 500 Mg Tablet) 500 mg PO DAILY [facility] Stop: 12/23/25 08:59 Last Admin: 12/24/24 08:37 Dose: 500 mg Azithromycin (Azithromycin 250 Mg Tablet) 500 mg PO Q24H [facility] Stop: 12/28/24 23:00 Calcium Carbonate (Calcium Carbonate/Vitamin D3 500 Mg/200 Unit Tablet) 1 tab PO TID.WITH.MEALS [facility] Stop: 12/22/25 11:59 Last Admin: 12/24/24 11:36 Dose: 1 tab Diphenhydramine HCl (Diphenhydramine 25 Mg Capsule) 25 mg PO Q6H PRN PRN Reason: Itching Stop: 12/23/25 13:12 Docusate Sodium (Docusate 100 Mg Capsule) 200 mg PO BID PRN PRN Reason: Constipation Stop: 12/21/25 22:29 Docusate Sodium (Docusate 100 Mg Capsule) 100 mg PO BID [facility] Stop: 12/23/25 20:59 Last Admin: 12/24/24 08:37 Dose: 100 mg Fluticasone/Umeclidinium/Vilanterol (Fluticas/Umeclidin/Vilanter 200-62.5-25 Mcg28 Puff Inhaler *Nf*) 1 puff INHALATION DAILY [facility] Stop: 12/23/25 08:59 Last Admin: 12/24/24 08:38 Dose: 1 puff Furosemide (Furosemide 80 Mg Tablet) 80 mg PO DAILY [facility] Stop: 12/24/25 12:14 Last Admin: 12/24/24 13:35 Dose: Not Given Hydralazine HCl (Hydralazine 20 Mg/Ml Vial) 10 mg IV-PUSH Q4H PRN PRN Reason: if SBP > 185 Stop: 12/21/25 22:29 Hydralazine HCl (Hydralazine 50 Mg Tablet) 100 mg PO TID [facility] Stop: 12/22/25 08:59 Last Admin: 12/24/24 13:35 [...] Ml) 1,000 mls @ 70 mls/hr IV .[id number] [facility] Stop: 12/23/25 00:04 Last Admin: 12/24/24 06:38 Dose: Not Given Isosorbide Dinitrate (Isosorbide Dinitrate 10 Mg Tablet) 10 mg PO TID [facility] Stop: 12/22/25 08:59 Last Admin: 12/24/24 13:35 Dose: Not Given Lidocaine HCl (Lidocaine 1% 50 Ml Vial) 0.1 ml INTRADERMA PREOP PRN PRN Reason: Venipuncture x 1 Dose Magnesium Hydroxide (Magnesium Hydroxide Susp 30 Ml Udc) 30 ml PO DAILY PRN PRN Reason: Constipation Stop: 12/22/25 11:11 Metoprolol Succinate (Metoprolol Succinate 100 Mg Tab.Er.24h) 100 mg PO DAILY [facility] Stop: 12/22/25 08:59 Last Admin: 12/24/24 08:38 Dose: Not Given Multivitamins (Multivitamin 1 Tab Tablet) 1 tab PO DAILY [facility] Stop: 12/23/25 08:59 Last Admin: 12/24/24 08:37 [...] 17 Gm Powd.Pack) 17 gm PO DAILY [facility] Stop: 12/22/25 08:59 Last Admin: 12/24/24 08:38 Dose: 17 gm Sennosides (Sennosides 8.6 Mg Tablet) 17.2 mg PO BID [facility] Stop: 12/22/25 08:59 Last Admin: 12/24/24 08:37 [...] Skin: No rashes , warm to touch DUST SAMPLER: Awake,Alert, following simple command Musculoskeletal: No swelling [...] Dominik Hamm M.D.12/23/2024 9:17 PM Dictation Location: [place] [address] Any impression(s) listed above is documentation that [...] mellitus with hyperglycemia: Assessment/Problem Details: He has olp-jiwtqzy-acdulauqk type 2 diabetes mellitus currently on diet [...] question. Documented By: Zahida Flowers MD 12/24/24 6435 Signed By: <Electronically signed by Zahida Flowers MD> 12/24/24 1545 [facility] Work Phone: 1(422) 532-920503-11-2025 Progress note Author Emile Reynolds [facility] Note Date/Time December 24, 2024 2:1 2pm [facility] [address] [place] [address] Hospitalist Progress Note Signed Patient: Delano Ren MR#: [id number] : 1940 Acct:[id number] Age/Sex: 84 / M Adm Date: 5 Loc: Room: [address] [place] [address] Type: ADM IN Attending Dr: Emile Reynolds [...] Allergy (Unknown, Verified 12/19/24 08:50) Unknown Reaction Vwkqgyz-JTL-QsM Reductase Inhibitor (Puvtfnf-Suh-Rzn Reductase Inhibitor) Allergy (Unknown, Verified 12/19/24 08:50) [...] Lactated Ringers IV 12/23/25 00:00 Not Given .[id number] FERN Sodium Chloride 1,000 mls @ 70 mls/hr 12/23/24 00:05 12/24/24 06:38 0.9% Sodium Chloride 1,000 Ml IV 12/23/25 00:04 Not Given .[id number] [facility] Isosorbide Dinitrate 10 mg 12/22/24 09:00 12/24/24 [...] signed by Emile Reynolds DO> 12/24/24 1412 [facility] Work Phone: 1(411) 509-991303-11-[address] [address] Nephrology Consult Note Signed Patient: Delano Ren MR#: [id number] : 1940 Acct:[id number] Age/Sex: 84 / M Adm Date: 5 Loc: 4N Room: [id number] Type: ADM IN Attending Dr: Emile Reynolds [...] Hereported that he has CKD and follows [facility] for CKD care. He reported longstanding DM [...] polydipsia Dermatological: denies any itching or rash [facility] Medical History (Updated 12/24/24 @ 15:28 by [...] Allergy (Unknown, Verified 12/19/24 08:50) Unknown Reaction Cefotgw-RAG-KpA Reductase Inhibitor (Xdutvjn-Iez-Ftm Reductase Inhibitor) Allergy (Unknown, Verified 12/19/24 08:50) [...] (Amoxicillin/Clav 500-125 Mg Tablet) 1 tab POBID [facility] Stop: 12/28/24 20:59 Ascorbic Acid (Ascorbic Acid 500 Mg Tablet) 500 mg PO DAILY [facility] Stop: 12/23/25 08:59 Last Admin: 12/24/24 08:37 Dose: 500 mg Azithromycin (Azithromycin 250 Mg Tablet) 500 mg PO Q24H [facility] Stop: 12/28/24 23:00 Calcium Carbonate (Calcium Carbonate/Vitamin D3 500 Mg/200 Unit Tablet) 1 tab PO TID.WITH.MEALS [facility] Stop: 12/22/25 11:59 Last Admin: 12/24/24 11:36 Dose: 1 tab Diphenhydramine HCl (Diphenhydramine 25 Mg Capsule) 25 mg PO Q6H PRN PRN Reason: Itching Stop: 12/23/25 13:12 Docusate Sodium (Docusate 100 Mg Capsule) 200 mg PO BID PRN PRN Reason: Constipation Stop: 12/21/25 22:29 Docusate Sodium (Docusate 100 Mg Capsule) 100 mg PO BID [facility] Stop: 12/23/25 20:59 Last Admin: 12/24/24 08:37 Dose: 100 mg Fluticasone/Umeclidinium/Vilanterol (Fluticas/Umeclidin/Vilanter 200-62.5-25 Mcg28 Puff Inhaler *Nf*) 1 puff INHALATION DAILY [facility] Stop: 12/23/25 08:59 Last Admin: 12/24/24 08:38 Dose: 1 puff Furosemide (Furosemide 80 Mg Tablet) 80 mg PO DAILY [facility] Stop: 12/24/25 12:14 Last Admin: 12/24/24 13:35 Dose: Not Given Hydralazine HCl (Hydralazine 20 Mg/Ml Vial) 10 mg IV-PUSH Q4H PRN PRN Reason: if SBP > 185 Stop: 12/21/25 22:29 Hydralazine HCl (Hydralazine 50 Mg Tablet) 100 mg PO TID [facility] Stop: 12/22/25 08:59 Last Admin: 12/24/24 13:35 [...] Ml) 1,000 mls @ 70 mls/hr IV .[id number] [facility] Stop: 12/23/25 00:04 Last Admin: 12/24/24 06:38 Dose: Not Given Isosorbide Dinitrate (Isosorbide Dinitrate 10 Mg Tablet) 10 mg PO TID [facility] Stop: 12/22/25 08:59 Last Admin: 12/24/24 13:35 Dose: Not Given Lidocaine HCl (Lidocaine 1% 50 Ml Vial) 0.1 ml INTRADERMA PREOP PRN PRN Reason: Venipuncture x 1 Dose Magnesium Hydroxide (Magnesium Hydroxide Susp 30 Ml Udc) 30 ml PO DAILY PRN PRN Reason: Constipation Stop: 12/22/25 11:11 Metoprolol Succinate (Metoprolol Succinate 100 Mg Tab.Er.24h) 100 mg PO DAILY [facility] Stop: 12/22/25 08:59 Last Admin: 12/24/24 08:38 Dose: Not Given Multivitamins (Multivitamin 1 Tab Tablet) 1 tab PO DAILY [facility] Stop: 12/23/25 08:59 Last Admin: 12/24/24 08:37 [...] 17 Gm Powd.Pack) 17 gm PO DAILY [facility] Stop: 12/22/25 08:59 Last Admin: 12/24/24 08:38 Dose: 17 gm Sennosides (Sennosides 8.6 Mg Tablet) 17.2 mg PO BID [facility] Stop: 12/22/25 08:59 Last Admin: 12/24/24 08:37 [...] Skin: No rashes , warm to touch DUST SAMPLER: Awake,Alert, following simple command Musculoskeletal: No swelling [...] Dominik Hamm M.D.12/23/2024 9:17 PM Dictation Location: [place] [address] Any impression(s) listed above is documentation that [...] mellitus with hyperglycemia: Assessment/Problem Details: He has ohe-pcfzmii-fqgbrlele type 2 diabetes mellitus currently on diet [...] any question. Documented By: Zahida Flowers MD 12/24/241514 Signed By: 12/24/24 1548 [facility]03-11-2025 Progress note Author Krysten Bowers [facility] Note Date/Time December 24, 2024 1:0 4pm [facility] [address] [place] [address] Cardiology Progress Note Signed Patient: Delano Ren MR#: [id number] : 1940 Acct:[id number] Age/Sex: 84 / M Adm Date: 5 Loc: Room: [address] [place] [address] Type: ADM IN Attending Dr: Emile Reynolds DO Copies to: ~ Date of Service: 12/24/2024 Subjective Interval history: Mr. 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 Prior to the fall, he denied any chest pain, dyspnea, palpitations, lightheadedness or syncope. He follows with cardiology at [facility] and was last seen in October [...] % (Auto) 89.8 Lymph % (Auto) 3.3 Hood % (Auto) 6.6 Eos % (Auto) 0.1 Baso % (Auto) 0.2 Nucleat RBC Rel Count 0.0 Neut # (Auto) 11.3 H Lymph # (Auto) 0.4 L Hood # (Auto) 0.8 Eos # (Auto) 0.0 [...] 7.7 Neut % (Auto) Lymph % (Auto) Hood % (Auto) Eos % (Auto) Baso % (Auto) Nucleat RBC Rel Count Neut # (Auto) Lymph # (Auto) Hood # (Auto) Eos # (Auto) Baso # [...] diabetes mellitus with hyperglycemia: Qualifiers: Diabetes mellitus penitentiary insulin use: without penitentiary use Qualified Code(s): E11.65 - Type 2 [...] needed. - Follow up with cardiology at [facility]. Documented By: Krysten Bowers MD 12/24/24 1255 Signed By: <Electronically signed by Krysten Bowers MD> 12/24/24 1303 [facility] Work Phone: 1(270) 169-766003-11-2025 [place] [address] Hospitalist Progress Note Signed Patient: Delano Ren MR#: [id number] : 1940 Acct:[id number] Age/Sex: 84 / M Adm Date: 5 Loc: N Room: [address] [place] [address] Type: ADM IN Attending Dr: Emile Reynolds [...] Allergy (Unknown, Verified 12/19/24 08:50) Unknown Reaction Cxjryll-AGU-DsL Reductase Inhibitor (Fhnbomo-Shr-Jeh Reductase Inhibitor) Allergy (Unknown, Verified 12/19/24 08:50) [...] Tablet PO 12/24/25 12:14 Not Given DAILY [facility] Hydralazine HCl 10 mg 12/21/24 22:30 Hydralazine [...] Lactated Ringers IV 12/23/25 00:00 Not Given .[id number] [facility] Sodium Chloride 1,000 mls @ 70 mls/hr 12/23/24 00:05 12/24/24 06:38 0.9% Sodium Chloride 1,000 Ml IV 12/23/25 00:04 Not Given .[id number] [facility] Isosorbide Dinitrate 10 mg 12/22/24 09:00 12/24/24 13:35 Isosorbide Dinitrate 10 Mg Tablet PO 12/22/25 08:59 Not Given TID [facility] Lidocaine HCl 0.1 ml 12/23/24 08:00 Lidocaine 1% 50 Ml Vial INTRADERMA PREOP PRN Venipuncture x 1 Dose Magnesium Hydroxide 30 ml 12/22/24 11:12 Magnesium Hydroxide Susp 30 Ml Udc PO 12/22/25 11:11 DAILY PRN Constipation Metoprolol Succinate 100 mg 12/22/24 09:00 12/24/24 08:38 Metoprolol Succinate 100 Mg Tab.Er.24h PO 12/22/25 08:59 Not Given DAILY [facility] Multivitamins 1 tab 12/23/24 09:00 12/24/24 08:37 [...] DO 12/24/24 1407 Signed By: 12/24/24 1412 [facility]03-11-2025 [place] [address] Cardiology Progress Note Signed Patient: Delano Ren MR#: [id number] : 1940 Acct:[id number] Age/Sex: 84 / M Adm Date: 5 Loc: 4N Room: [address] [place] [address] Type: ADM IN Attending Dr: Emile Reynolds DO Copies to: ~ Date of Service: 12/24/2024 Subjective Interval history: Mr. 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 Prior to the fall, he denied any chest pain, dyspnea, palpitations, lightheadedness or syncope. He follows with cardiology at [facility] and was last seen in October [...] % (Auto) 89.8 Lymph % (Auto) 3.3 Hood % (Auto) 6.6 Eos % (Auto) 0.1 Baso % (Auto) 0.2 Nucleat RBC Rel Count 0.0 Neut # (Auto) 11.3 H Lymph # (Auto) 0.4 L Hood # (Auto) 0.8 Eos # (Auto) 0.0 [...] 7.7 Neut % (Auto) Lymph % (Auto) Hood % (Auto) Eos % (Auto) Baso % (Auto) Nucleat RBC Rel Count Neut # (Auto) Lymph # (Auto) Hood # (Auto) Eos # (Auto) Baso # [...] diabetes mellitus with hyperglycemia: Qualifiers: Diabetes mellitus penitentiary insulin use: without penitentiary use Qualified Code(s): E11.65 - Type 2 [...] needed. - Follow up with cardiology at [facility]. Documented By: Krysten Bowers MD 12/24/24 1255 Signed By: 12/24/24 1304 [facility]03-10-2025 Progress note Author Emile Reynolds [facility] Note Date/Time December 23, 2024 4:1 5pm [facility] [address] [place], [place] [id number] Hospitalist Progress Note Signed Patient: Delano Ren MR#: [id number] : 1940 Acct:[id number] Age/Sex: 84 / M Adm Date: 5 Loc: 4N Room: 9S9823-1 Type: ADM IN Attending Dr: Emile Reynolds [...] L Simple Mask 68 12/23/24 14:10 12/23/24 14:25 12/23/24 14:25 12/23/24 14:25 12/23/24 14:25 12/23/24 14:25 12/23/24 14:25 FiO2 2 12/22/24 00:00 Narrative: General: [...] Allergy (Unknown, Verified 12/19/24 08:50) Unknown Reaction Gkisjmm-UHV-DgN Reductase Inhibitor (Urdmcmk-Mlb-Cno Reductase Inhibitor) Allergy (Unknown, Verified 12/19/24 08:50) [...] PO 12/22/25 08:59 Not Given DAILY FERN Amiodarone HCl 200 mg 12/22/24 09:00 12/23/24 08:47 Amiodarone 200 Mg Tablet PO 12/22/25 08:59 Not Given DAILY [facility] Amlodipine Besylate 10 mg 12/22/24 09:00 12/23/24 08:48 Amlodipine 10 Mg Tablet PO 12/22/25 08:59 Not Given DAILY [facility] Ascorbic Acid 500 mg 12/23/24 09:00 12/23/24 08:48 Ascorbic Acid 500 Mg Tablet PO 12/23/25 08:59 Not Given DAILY [facility] Calcium Carbonate 1 tab 12/22/24 12:00 12/23/24 12:33 Calcium Carbonate/Vitamin D3 500 Mg/200 Unit Tablet PO 12/22/25 11:59 Not Given TID.WITH.MEALS [facility] Diphenhydramine HCl 25 mg 12/23/24 13:13 Diphenhydramine [...] *Nf* INHALATION 12/23/25 08:59 1 puff DAILY [facility] Administration Hydralazine HCl 10 mg 12/21/24 22:30 [...] Lactated Ringers IV 12/23/25 00:00 75 mls/hr .[id number] FERN Administration Sodium Chloride 1,000 mls @ 70 mls/hr 12/23/24 00:05 12/23/24 01:07 0.9% Sodium Chloride 1,000 Ml IV 12/23/25 00:04 Not Given .[id number] FERN Lactated Ringer's 1,000 mls @ 20 [...] code Documented By: Emile Reynolds DO 12/23/24 1603 Signed By: <Electronically signed by Emile Reynolds DO> 12/23/24 2058 [facility] Work Phone: 1(303) 450-663603-10-2025 [place] [address] Hospitalist Progress Note Signed Patient: Delano Ren MR#: [id number] : 1940 Acct:[id number] Age/Sex: 84 / M Adm Date: 5 Loc: 4N Room: 1M8299-5 Type: ADM IN Attending Dr: Emile Reynolds [...] L Simple Mask 68 12/23/24 14:10 12/23/24 14:25 12/23/24 14:25 12/23/24 14:25 12/23/24 14:25 12/23/24 14:25 12/23/24 14:25 FiO2 2 12/22/24 00:00 Narrative: General: [...] Allergy (Unknown, Verified 12/19/24 08:50) Unknown Reaction Zlkwbyb-DGW-LvW Reductase Inhibitor (Juaxock-Ztj-Tqz Reductase Inhibitor) Allergy (Unknown, Verified 12/19/24 08:50) [...] Tablet PO 12/22/25 08:59 Not Given DAILY [facility] Amiodarone HCl 200 mg 12/22/24 09:00 12/23/24 08:47 Amiodarone 200 Mg Tablet PO 12/22/25 08:59 Not Given DAILY [facility]ERN Amlodipine Besylate 10 mg 12/22/24 09:00 12/23/24 08:48 Amlodipine 10 Mg Tablet PO 12/22/25 08:59 Not Given DAILY FERN Ascorbic Acid 500 mg 12/23/24 09:00 12/23/24 08:48 Ascorbic Acid 500 Mg Tablet PO 12/23/25 08:59 Not Given DAILY [facility] Calcium Carbonate 1 tab 12/22/24 12:00 12/23/24 12:33 Calcium Carbonate/Vitamin D3 500 Mg/200 Unit Tablet PO 12/22/25 11:59 Not Given TID.WITH.MEALS [facility]ERN Diphenhydramine HCl 25 mg 12/23/24 13:13 Diphenhydramine [...] 12/23/25 08:59 1 puff DAILY FERN Administration Hydralazine HCl 10 mg [...] Lactated Ringers IV 12/23/25 00:00 75 mls/hr .[id number] FERN Administration Sodium Chloride 1,000 mls @ 70 mls/hr 12/23/24 00:05 12/23/24 01:07 0.9% Sodium Chloride 1,000 Ml IV 12/23/25 00:04 Not Given .[id number] FERN Lactated Ringer's 1,000 mls @ 20 [...] code Documented By: Emile Reynolds DO 12/23/24 1609 Signed By: 12/23/24 1615 [facility]03-10-2025 Reason for visit Narrative* Rehabilitation - Outpatient (Routine) - Authorized Specialty Diagnoses / Procedures Referred By Abby mortensen Referred To Contact Physical Therapy Diagnoses Right Hip Arthroplasty / Bone graft proximal femur, dos 12/23/24 / Left trochanteric Bursitis Procedures [place] PHYSICAL THERAPY EVALUATION LOW COMPLEX 20 MINS [place] OFFICE/OUTPATIENT NEW HIGH MDM 60 MINUTES Walker Soria MD [address] [place] [address] Phone: tel: fax: Kenny Aldana, PT [address] [facility] [address] [place] [address] Phone: tel: fax: Referral ID Status Reason Start Date Expiration Date V isits Requested Visits Authorized [id number] Authorized 03/19/2025 09/15/2025 20 20 [id number] Reason for visit Narrative* Rehabilitation - Outpatient (Routine) - Authorized Specialty Diagnoses / Procedures Referred By Contac t Referred To Contact Physical Therapy Diagnoses Right Hip Arthroplasty / Bone graft proximal femur, dos 12/23/24 / Left trochanteric Bursitis Procedures [place] PHYSICAL THERAPY EVALUATION LOW COMPLEX 20 MINS [place] OFFICE/OUTPATIENT NEW HIGH MDM 60 MINUTES Walker Soria MD [address] [place] [address] Phone: tel: fax: Kenny Aldana, PT [address] [address] Phone: tel: fax: Referral ID Status Reason Start Date Expiration Date V isits Requested Visits Authorized [id number] Authorized 03/19/2025 10/15/2025 20 30 [id number] Reason for visit Narrative* Rehabilitation - Outpatient (Routine) - Authorized Specialty Diagnoses / Procedures Referred By Abby t Referred To Contact Physical Therapy Diagnoses Right Hip Arthroplasty / Bone graft proximal femur, dos 12/23/24 / Left trochanteric Bursitis Procedures [place] PHYSICAL THERAPY EVALUATION LOW COMPLEX 20 MINS [place] OFFICE/OUTPATIENT NEW HIGH MDM 60 MINUTES Walker Soria MD [address] [place] [address] Phone: tel: fax: Kenny Aldana, PT [address] [facility] [address] [place] [address] Phone: tel: fax: Referral ID Status Reason Start Date Expiration Date V isits Requested Visits Authorized [id number] Authorized 03/19/2025 10/15/2025 20 35 [id number] History and physical note Author Sudha Sood [facility] Note Date/Time December 23, 2024 7:4 7am [facility] [address] [place] [address] Hospitalist H&P Signed Patient: Delano Ren MR#: [id number] : 1940 Acct:[id number] Age/Sex: 84 / M Adm Date: 5 Loc: 4 Room: [address] [place] [address] Type: ADM IN Attending Dr: Jaye Jorgensen [...] with baseline creatinine 2.7 and following with pearl maker. 10 systems are reviewed and are negative [...] Previous records in the computer system reviewed [facility] Medical History Screening PSA (prostate specific antigen) [...] Allergy (Unknown, Verified 12/19/24 08:50) Unknown Reaction Zexkjfu-EZK-BjY Reductase Inhibitor (Lcmwumw-Pxi-Ylg Reductase Inhibitor) Allergy (Unknown, Verified 12/19/24 08:50) [...] 3 Documented By: Sudha Sood MD 12/21/24 7066 Signed By: <Electronically signed by Sudha Sood MD> 12/23/24 0747 [facility] Work Phone: 1(508) 340-503803-10-2025 [place] [address] Hospitalist H&P Signed Patient: Delano Ren MR#: [id number] : 1940 Acct:[id number] Age/Sex: 84 / M Adm Date: 5 Loc: Room: [address] [place] [address] Type: ADM IN Attending Dr: Jaye Jorgensen [...] disease withbaseline creatinine 2.7 and following with pearl maker. 10 systems are reviewed and are negative [...] Previous records in the computer system reviewed [facility] Medical History Screening PSA (prostate specific antigen) [...] Allergy (Unknown, Verified 12/19/24 08:50) Unknown Reaction Fzknkfm-EAH-FtV Reductase Inhibitor (Utivdvb-Ecd-Mdp Reductase Inhibitor) Allergy (Unknown, Verified 12/19/24 08:50) [...] 3 Documented By: Sudha Sood MD 12/21/24 9606 Signed By: 12/23/24 0747 [facility]03-09-2025 Progress note Author Jaye Jorgensen [facility] Note Date/Time December 22, 2024 8:21 pm [facility] [address] [place] [address] Hospitalist Progress Note Signed Patient: Delano Ren MR#: [id number] : 1940 Acct:[id number] Age/Sex: 84 / M Adm Date: 5 Loc: 4N Room: [address] [place] [address] Type: ADM IN Attending Dr: Jaye Jorgensen [...] Allergy (Unknown, Verified 12/19/24 08:50) Unknown Reaction Skrgljm-RMY-QoY Reductase Inhibitor (Puaehae-Mha-Mla Reductase Inhibitor) Allergy (Unknown, Verified 12/19/24 08:50) [...] 12/23/24 00:00 Lactated Ringers IV 12/23/25 00:00 .[id number] [facility] Isosorbide Dinitrate 10 mg 12/22/24 09:00 12/22/24 13:22 Isosorbide Dinitrate 10 Mg Tablet PO 12/22/25 08:59 10 mg TID FERN Administration Magnesium Hydroxide 30 ml 12/22/24 11:12 Magnesium Hydroxide Susp 30 Ml Udc PO 12/22/25 11:11 DAILY PRN Constipation Metoprolol Succinate 100 mg 12/22/24 09:00 12/22/24 10:49 Metoprolol Succinate 100 Mg Tab.Er.24h PO 12/22/25 08:59 100 mg DAILY [facility] Administration Multivitamins 1 tab 12/23/24 09:00 Multivitamin 1 Tab Tablet PO 12/23/25 08:59 DAILY [facility] Ondansetron HCl 4 mg 12/22/24 11:12 Ondansetron [...] ,CKD, HFrEF presented with mechanical fall to [facility] and transferred for right femoral neck fracture Right hip fracture Pain control Orthopedic was consulted, recommendation appreciated. For possible surgical treatment 12/23 NICM Cardiology was consulted, recommendation appreciated. CKD Cr at baseline Documented By: Jaye Jorgensen MD 12/22/24 0359 Signed By: <Electronically signed by Jaye Jorgensen MD> 12/22/242020 [facility] Work Phone: [phone]) 874-468703-09-2025 [place] [address] Hospitalist Progress Note Signed Patient: Delano Ren MR#: [id number] : 1940 Acct:[id number] Age/Sex: 84 / M Adm Date: 5 Loc: 4N Room: [address] [place] [address] Type: ADM IN Attending Dr: Jaye Jorgensen [...] Allergy (Unknown, Verified 12/19/24 08:50) Unknown Reaction Xugnudz-TMV-VbX Reductase Inhibitor (Nrychfv-Oel-Gxc Reductase Inhibitor) Allergy (Unknown, Verified 12/19/24 08:50) [...] 12/23/24 00:00 Lactated Ringers IV 12/23/25 00:00 .[id number] [facility] Isosorbide Dinitrate 10 mg 12/22/24 09:00 12/22/24 [...] ,CKD, HFrEF presented with mechanical fall to [facility] and transferred for right femoral neck fracture Right hip fracture Pain control Orthopedic was consulted, recommendation appreciated. For possible surgical treatment 12/23 NICM Cardiology was consulted, recommendation appreciated. CKD Cr at baseline Documented By: Jaye Jorgensen MD 12/22/241658 Signed By: 12/22/242020 [facility]03-09-2025 Consult note Author Krysten Bowers [facility] Note Date/Time December 22, 2024 3:47 pm [facility] [address] [place] [address] Cardiology Consult Note Signed Patient: Delano Ren MR#: [id number] : 1940 Acct:[id number] Age/Sex: 84 / M Adm Date: 5 Loc: 4N Room: [address] [place] [address] Type: ADM IN Attending Dr: Jaye Jorgensen MD Copies to: DO Krysten Lauren MD Marwan Wassouf, MD~ Cardiology HPI History of Present Illness Consult Date: 12/22/24 HPI: Mr. 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 Prior to the fall, he denied any chest pain, dyspnea, palpitations, lightheadedness or syncope. He follows with cardiology at [facility] and was last seen in October [...] dilatation, biatrial enlargement, RVSP of 49 mmHg. [facility] Medical History Screening PSA (prostate specific antigen) [...] Allergy (Unknown, Verified 12/19/24 08:50) Unknown Reaction Hxlilgr-DBA-WwC Reductase Inhibitor (Lumzmef-Uuj-Rqx Reductase Inhibitor) Allergy (Unknown, Verified 12/19/24 08:50) [...] Lymph # (Auto) 0.8 L (1.00-4.8) x10E3/uL Hood # (Auto) 0.9 H (0.0-0.8) x10E3/uL Eos [...] diabetes mellitus with hyperglycemia: Qualifiers: Diabetes mellitus public housing interviewer insulin use: without public housing interviewer use Qualified Code(s): E11.65 - Type 2 [...] <Electronically signed by Krysten Bowers MD> 12/22/24 1543 [facility] Work Phone: [phone]) 709-280003-09-2025 [place] [address] Cardiology Consult Note Signed Patient: Delano Ren MR#: [id number] : 1940 Acct:[id number] Age/Sex: 84 / M Adm Date: 5 Loc: 4N Room: 9L7552-4 Type: ADM IN Attending Dr: Jaye Jorgensen MD Copies to: DO Krysten Lauren MD Marwan Wassouf, MD~ Cardiology HPI History of Present Illness Consult Date: 12/22/24 HPI: Mr. 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 Prior to the fall, he denied any chest pain, dyspnea, palpitations, lightheadedness or syncope. He follows with cardiology at [facility] and was last seen in October [...] dilatation, biatrial enlargement, RVSP of 49 mmHg. [facility] Medical History Screening PSA (prostate specific antigen) [...] Allergy (Unknown, Verified 12/19/24 08:50) Unknown Reaction Fsdwdki-JQH-UtF Reductase Inhibitor (Dymxply-Jfr-Tae Reductase Inhibitor) Allergy (Unknown, Verified 12/19/24 08:50) [...] Lymph # (Auto) 0.8 L (1.00-4.8) x10E3/uL Hood # (Auto) 0.9 H (0.0-0.8) x10E3/uL Eos [...] diabetes mellitus with hyperglycemia: Qualifiers: Diabetes mellitus penitentiary insulin use: without penitentiary use Qualified Code(s): E11.65 - Type 2 [...] MD 12/22/24 1538 Signed By: 12/22/24 1547 [facility]03-09-2025 Evaluation note* Diagnosis Onset Date Resolution Status Admit Date Chronic HFrEF (heart failure with reduced ejection fraction) acute December 21, 2024 10:13pm Femoral neck fracture acute Dec 10:13pm A-fib inactive December 21 10:13pm Acute kidney injury superimp osed on CKD inactive December 21, 2024 10:13pm Acute on chronic anemia inactive M 2024 10:13pm Aspiration pneumonia inactive [facility] 2024 10:13pm Coronary artery disease inactive M arch 2024 10:13pm Impaired mobility and activi ties of daily living inactive December 21, 2024 10:13pm Mucopurulent chronic bronchitis inac tive December 21, 2024 10:13pm Obstructive sleep apnea inactive [facility] 2024 10:13pm Pacemaker inactive December 21 10:13pm Paroxysmal atrial fibrillation inact dina December 21, 2024 10:13pm Primary hypertension inactive [facility] 2024 10:13pm Pulmonary hypertension inactive [facility] 2024 10:13pm Type 2 diabetes mellitus wit h hyperglycemia inactive December 21, 2024 10:13pm Hypertensive chronic kidney disease with stage 1 through stage 4 chronic ki deleted December 21, 2024 10:13pm Stage 4 chronic kidney disease delet ed December 21, 2024 10:13pm Chronic HFrEF (heart failure with reduced ejection fraction) acute December 27, 2024 2:06pm Femoral neck fracture acute [facility][1] 2024 2:06pm Hypercholesteremia acute December 27, 2024 2:06pm Iron deficiency anemia acute [facility] 2024 2:06pm Nonischemic dilated cardiomyopathy a cute December 27, 2024 2:06pm Positive fecal occult blood test acu te December 27, 2024 2:06pm A-fib inactive December 27 2:06pm Acute kidney injury superimp osed on CKD inactive December 27, 2024 2:06pm Acute on chronic anemia inactive [facility] 2024 2:06pm Aspiration pneumonia inactive [facility] 2024 2:06pm Coronary artery disease inactive [facility] 2024 2:06pm Impaired mobility and [...] 11:18am Colon cancer deleted February 28 1:52pm [place] Work Phone: 1([phone]) 536-217603-06-2025 Evaluation note* Diagnosis Onset Date Resolution Status Admit Date Chronic bronchitis, simple acute December 19, 2024 8:49am Chronic HFrEF (heart failure with reduced ejection fraction) acute December 19, 2024 8:49am Colon cancer acute December 19, 2 025 8:49am Hypothyroidism due to medication acute December 19, 2024 8:49am Nonischemic dilated cardiomyopathy acute December 19, 2024 8:49am Obstructive sleep apnea acute M arch 2024 8:49am Paroxysmal atrial fibrillation acute December [...] 21 10:13pm Acute on chronic anemia acute [facility] 2024 10:13pm Aspiration pneumonia acute [facility] h 2024 10:13pm Chronic HFrEF (heart failure with reduced ejection fraction) acute December 21, 2024 10:13pm Coronary artery disease acute [facility] 2024 10:13pm Femoral neck fracture acute Dec 10:13pm Hypertensive chronic kidney disease with stage 1 through stage 4 chronic ki acute December 21 10:13pm Impaired mobility and activities of daily living acute December 21, 2024 10:13pm Mucopurulent chronic bronchitis acut e December 21, 2024 10:13pm Obstructive sleep apnea acute [facility] 2024 10:13pm Pacemaker acute December 21 10:13pm Paroxysmal atrial fibrillation acute December 21, 2024 10:13pm Primary hypertension acute [facility] 2024 10:13pm Pulmonary hypertension acute [facility] 2024 10:13pm Stage 4 chronic kidney disease acute December 21, 2024 10:13pm Type 2 diabetes mellitus wit h hyperglycemia acute December 21, 2024 10:13pm [facility] Work Phone: [phone]) 773-915603-06-2025 Evaluation note* Diagnosis Onset Date Resolution Status Admit Date Chronic bronchitis, simple acute December 19, 2024 8:49am Colon cancer acute December 19 8:49am 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 [...] 19, 2024 8:49am Femoral neck fracture acute [facility][1] 2024 10:13pm A-fib inactive December 21 10:13pm Acute kidney injury superimp osed on CKD inactive December 21, 2024 10:13pm Acute on chronic anemia inactive [facility] 2024 10:13pm Aspiration pneumonia inactive [facility] en[facility] 2024 10:13pm Chronic HFrEF (heart failure with reduced ejection fraction) inactive December 21, 2024 10:13pm Coronary artery disease inactive [facility] 2024 10:13pm Hypertensive chronic kidney disease with stage 1 through stage 4 chronic ki inactive December 21 10:13pm Impaired mobility and activi ties of daily living inactive December 21, 2024 10:13pm Mucopurulent chronic bronchitis inac tive December 21, 2024 10:13pm Obstructive sleep apnea inactive [facility] 2024 10:13pm Pacemaker inactive December 21 10:13pm Paroxysmal atrial fibrillation inact dina December 21, 2024 10:13pm Primary hypertension inactive [facility]ri[facility] 2024 10:13pm Pulmonary hypertension inactive [facility] 2024 10:13pm Stage 4 chronic kidney disease inact dina December 21, 2024 10:13pm Type 2 diabetes mellitus wit h hyperglycemia inactive December 21, 2024 10:13pm Femoral neck fracture acute [facility][1] 2024 2:06pm Hypercholesteremia acute December 27, 2024 2:06pm Iron deficiency anemia acute [facility] 2024 2:06pm Malignant neoplasm of right colon ac [place] December 27, 2024 2:06pm Nonischemic dilated cardiomyopathy acute December 27, 2024 2:06pm Positive fecal occult blood test acu te December 27, 2024 2:06pm A-fib inactive December 27 2:06pm Acute kidney injury superimp osed on CKD inactive December 27, 2024 2:06pm Acute on chronic anemia inactive [facility] 2024 2:06pm Aspiration pneumonia inactive [facility] h 2024 2:06pm Chronic HFrEF (heart failure with reduced ejection fraction) inactive December 27, 2024 2:06pm Coronary artery disease inactive [facility] 2024 2:06pm Hypertensive chronic kidney [...] h hyperglycemia inactive December 27, 2024 2:06pm [facility] Work Phone: 1(743) 845-114603-06-2025 Evaluation note* Diagnosis Onset Date Resolution Status [...] 19, 2024 8:49am Obstructive sleep apnea inactive [facility] 2024 8:49am Paroxysmal atrial fibrillation inact dina December 19, 2024 8:49am Primary hypertension inactive [facility] 2024 8:49am Stage 4 chronic kidney disease [...] 2024 10:13pm Acute on chronic anemia inactive [facility] 2024 10:13pm Aspiration pneumonia inactive [facility] 2024 10:13pm Chronic HFrEF (heart failure with reduced ejection fraction) inactive December 21, 2024 10:13pm Coronary artery disease inactive [facility] 2024 10:13pm Hypertensive chronic kidney disease with stage 1 through stage 4 chronic ki inactive December 21 10:13pm Impaired mobility and activi ties of daily living inactive December 21, 2024 10:13pm Mucopurulent chronic bronchitis inac tiDecember 21, 2024 10:13pm Obstructive sleep apnea inactive [facility] 2024 10:13pm Pacemaker inactive December 21 10:13pm Paroxysmal atrial fibrillation inact dina December 21, 2024 10:13pm Primary hypertension inactive [facility] 2024 10:13pm Pulmonary hypertension inactive [facility] 2024 10:13pm Stage 4 chronic kidney disease inact dina December 21, 2024 10:13pm Type 2 diabetes mellitus wit h hyperglycemia inactive December 21, 2024 10:13pm Femoral neck fracture acute [facility][1] 2024 2:06pm Hypercholesteremia acute December 27, 2024 2:06pm Iron deficiency anemia acute [facility] 2024 2:06pm Malignant neoplasm of right colon ac [place] December 27, 2024 2:06pm Nonischemic dilated cardiomyopathy acute December 27, 2024 2:06pm Positive fecal occult blood test acu te December 27, 2024 2:06pm A-fib inactive December 27 2:06pm Acute kidney injury superimp osed on CKD inactive December 27, 2024 2:06pm Acute on chronic anemia inactive [facility] 2024 2:06pm Aspiration pneumonia inactive [facility] 2024 2:06pm Chronic HFrEF (heart failure with reduced ejection fraction) inactive December 27, 2024 2:06pm Coronary artery disease inactive [facility] 2024 2:06pm Hypertensive chronic kidney [...] right hip acute January 14, 2025 9:53am [place] Work Phone: 1(524) 445-484103-06-2025 Evaluation note* Diagnosis Onset Date Resolution Status [...] 2024 10:13pm Acute on chronic anemia inactive 2024 10:13pm Aspiration pneumonia inactive [facility] h 2024 10:13pm Coronary artery disease inactive 2024 10:13pm Impaired mobility and activi ties of daily living inactive December 21, 2024 10:13pm Mucopurulent chronic bronchitis inac tive December 21, 2024 10:13pm Obstructive sleep apnea inactive [facility] 2024 10:13pm Pacemaker inactive December 21 10:13pm Paroxysmal atrial fibrillation inact dina December 21, 2024 10:13pm Primary hypertension inactive [facility] h 2024 10:13pm Pulmonary hypertension inactive [facility] 2024 10:13pm Type 2 diabetes mellitus wit h hyperglycemia inactive December 21, 2024 10:13pm Chronic HFrEF (heart failure with reduced ejection fraction) acute December 27, 2024 2:06pm Femoral neck fracture acute [facility][1] 2024 2:06pm Hypercholesteremia acute December 27, 2024 2:06pm Hypertensive chronic kidney disease with stage 1 through stage 4 chronic ki acute December 27, 025 2:06pm Iron deficiency anemia acute [facility] 2024 2:06pm Nonischemic dilated cardiomyopathy acute December 27, 2024 2:06pm Positive fecal occult blood test acu te December 27, 2024 2:06pm Stage 4 chronic kidney disease acute December 27, 2024 2:06pm A-fib inactive December 27 2:06pm Acute kidney injury superimp osed on CKD inactive December 27, 2024 2:06pm Acute on chronic anemia inactive [facility] 2024 2:06pm Aspiration pneumonia inactive [facility] 2024 2:06pm Coronary artery disease inactive [facility] 2024 2:06pm Impaired mobility and [...] kidney disease acute January 20, 2025 10:53am [place] Work Phone: 1(473) 154-595403-06-2025 Evaluation note* Diagnosis Onset Date Resolution Status [...] 2024 10:13pm Acute on chronic anemia inactive [facility] 2024 10:13pm Aspiration pneumonia inactive [facility] 2024 10:13pm Coronary artery disease inactive [facility] 2024 10:13pm Impaired mobility and activi ties of daily living inactive December 21, 2024 10:13pm Mucopurulent chronic bronchitis inac tive December 21, 2024 10:13pm Obstructive sleep apnea inactive [facility] 2024 10:13pm Pacemaker inactive December 21 10:13pm Paroxysmal atrial fibrillation inact dina December 21, 2024 10:13pm Primary hypertension inactive [facility] h 2024 10:13pm Pulmonary hypertension inactive [facility] 2024 10:13pm Type 2 diabetes mellitus wit h hyperglycemia inactive December 21, 2024 10:13pm Hypertensive chronic kidney disease with stage 1 through stage 4 chronic ki deleted December 21 10:13pm Stage 4 chronic kidney disease delet ed December 21, 2024 10:13pm Chronic HFrEF (heart failure with reduced ejection fraction) acute December 27, 2024 2:06pm Femoral neck fracture acute [facility] 2024 2:06pm Hypercholesteremia acute December 27, 2024 2:06pm Iron deficiency anemia acute [facility] 2024 2:06pm Nonischemic dilated cardiomyopathy acute December 27, 2024 2:06pm Positive fecal occult blood test acu te December 27, 2024 2:06pm A-fib inactive December 27 2:06pm Acute kidney injury superimp osed on CKD inactive December 27, 2024 2:06pm Acute on chronic anemia inactive [facility] 2024 2:06pm Aspiration pneumonia inactive [facility] 2024 2:06pm Coronary artery disease inactive [facility] 2024 2:06pm Impaired mobility and [...] stage 4 chronic ki deleted December 27, 2:06pm Stage 4 chronic kidney disease delet [...] 28, 2025 1:59pm Thyrotoxicosis acute January 1:59pm [place] Work Phone: 1([phone]) 973-408203-06-2025 Evaluation note* Diagnosis Onset Date Resolution Status [...] December 19, 2024 8:49am Primary hypertension inactive [facility] 2024 8:49am Type 2 diabetes mellitus wit [...] 2024 10:13pm Acute on chronic anemia inactive [facility] 2024 10:13pm Aspiration pneumonia inactive [facility] 2024 10:13pm Coronary artery disease inactive [facility] 2024 10:13pm Impaired mobility and activi ties of daily living inactive December 21, 2024 10:13pm Mucopurulent chronic bronchitis inac tive December 21, 2024 10:13pm Obstructive sleep apnea inactive [facility] 2024 10:13pm Pacemaker inactive December 21 10:13pm Paroxysmal atrial fibrillation inact dina December 21, 2024 10:13pm Primary hypertension inactive [facility] enriquez 2024 10:13pm Pulmonary hypertension inactive [facility] 2024 10:13pm Type 2 diabetes mellitus wit h hyperglycemia inactive December 21, 2024 10:13pm Hypertensive chronic kidney disease with stage 1 through stage 4 chronic ki deleted December 21 10:13pm Stage 4 chronic kidney disease delet ed December 21, 2024 10:13pm Chronic HFrEF (heart failure with reduced ejection fraction) acute December 27, 2024 2:06pm Femoral neck fracture acute [facility][1] 2024 2:06pm Hypercholesteremia acute December 27, 2024 2:06pm Iron deficiency anemia acute [facility] 2024 2:06pm Nonischemic dilated cardiomyopathy acute December 27, 2024 2:06pm Positive fecal occult blood test acu te December 27, 2024 2:06pm A-fib inactive December 27 2:06pm Acute kidney injury superimp osed on CKD inactive December 27, 2024 2:06pm Acute on chronic anemia inactive [facility] 2024 2:06pm Aspiration pneumonia inactive [facility] enriquez 2024 2:06pm Coronary artery disease inactive [facility] 2024 2:06pm Impaired mobility and [...] hip acut e February 25, 2025 11:18am [place] Work Phone: 1([phone]) 714-210702-19-2025 History of Present illness Narrative* MANUELA Riddle - 12/04/2024 1:00 PM EST Pt picked up supplies documented in this encounterCooper County Memorial [id number] NoteCardiovascular Medicine [facility] SUBJECTIVE Chief Complaint Patient presents with Atrial Fibrillation Atrial Flutter Delnao Ren is a 84 y.o. male here [...] Osteomyelitis of vertebra (CMS/HCC) Paroxysmal atrial flutter ([facility]/HCC) Proteinuria Type 2 diabetes mellitus ([facility]/HCC) COPD (chronic obstructive pulmonary disease) ([facility]/HCC) Dilated cardiomyopathy ([facility]/HCC) Statin intolerance Stage 4 chronic kidney disease ([facility]/HCC) Chronic bronchitis, simple ([facility]/HCC) Chronic venous insufficiency Constipation Hyperlipidemia type II Hypothyroidism due to medication Impaired mobility and activities of daily living Iron deficiency anemia Colon cancer (CMS/HCC) Mucopurulent chronic bronchitis ([facility]/HCC) Obstructive sleep apnea Pacemaker A-fib ([facility]) Psoas abscess, right ([facility]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) Pulmonary hypertension ([facility]/HCC) Thyrotoxicosis Type 2 diabetes mellitus with hyperglycemia ([facility]/HCC) Hypersomnia Primary insomnia Past Medical History: Diagnosis Date Arrhythmia CHF (congestive heart failure) ([facility]/HCC) Chronic kidney disease Family History Problem Relation Name Age of Onset Diabetes Mother Heart disease Father Glaucoma Brother Diabetes Maternal Grandmother Clotting disorder Other Social History Tobacco Use Smoking status: Former Current packs/day: 0.00 Types: Cigarettes Quit date: 1981 Years since quittin.1 Smokeless tobacco: Never Substance Use Topics Alcohol use: Yes Comment: OCCASIONAL Drug use: Never Allergies Allergen Reactions Zpuprfn-Znq-Rbm Reductase Inhibitors Tramadol ROS Cardiovascular: Positive for [...] movements intact. Pupils: Pupi (more content not included)...[facility] 11-13-2024 NotePatient here for follow up DCCV on 10/17/[address] Degroot. Denies chest pain, SOB, palpitations, lightheadedness/syncope, and bleeding on Eliquis. Review of Systems Hematologic/Lymphatic: Bruises/bleeds easily. All other systems reviewed and are negative.[facility] 10-17-2024 NoteDIRECT CARDIOVERSION PROCEDURE NOTE Date: 10/17/2024. [...] Plan: Continue anticoagulation. Trang Degroot MD Cardiac ElectrophysiologyUnKindred Healthcare01-02-2025 Note Patient: Delano Ren Procedure Information Date/Time: 10/17/24 1230 Procedure: Cardioversion - PC APPROVED Location: [facility] / [facility] (Cath) Providers: Trang Degroot MD Clinical information reviewed: Allergies Meds Physical Exam Airway Mallampati: II TM distance: >3 FB Neck ROM: full Cardiovascular Dental Pulmonary Abdominal Anesthesia Plan ASA 3 CSE Anesthetic plan and risks discussed with patient. Use of blood products discussed with patient who. Additional Equipment RequestsUnKindred Healthcare11-26-2024 Note amiUnKindred Healthcare11-26-2024 NoteUT Electrophysiology Consult Note Reason for visit: Afib and dilated CMP. 09/10/24 Patient underwent HEAD TELLER-D upgrade procedure on 06/12/2023. Subsequent echocardiogram in [...] infrahisian disease. He was brought back to [facility] on 02/12/2020 due to what was [...] Procedure Laterality Date CARD (more content not included)...[facility]11-06-2024 History of Present illness Narrative* Marilin Clay, CCC-A - 08/21/2024 1:00 PM EST History: Pt [...] that time if needed. documented in this encounterCooper County Memorial [id number] NotePt is getting a colonoscopy in early August, is it alright to hold eliquis for two days prior to procedure?[facility]10-24-2024 History of Present illness Narrative* Avery Syed [...] Follows with Dr. Rodriguez Pulmonary medicine in [place] 60% Left renal artery stenosis noted in the past Decreased left ventricular function ejection fraction 30%. 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 His mostrecall his echo on 09/11/2023 showed an EF of 25-30%. He is no longer requiring a life vest. He is status post upgrade of permanent pacemaker to defibrillator an additional lead placement at the [facility] June 07, 2023. Grade 1 left ventricular diastolic dysfunction. Mild tricuspid regurgitation Mild mitral regurgitation Atrial flutter status post SUSAN cardioversion at [facility] in July of 2019.He did undergo an ablation after a hospital stay in October 2019. He is on anticoagulation with reduced dose Eliquis 2.5 mg p.o. b.I.d. 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 Adenocarcinoma the colon status post colectomy with reanastomosis in [place] August 2021. Being followed by Oncology with [...] (12/07/2023) Received from [facility] Safety & Environment Fear of Current or Ex-Partner: Not on file Emotionally Abused: Not on file Physically Abused: Not on file Sexually Abused: Not on file Physically or Sexually Abused: Not on file Housing Instability: Not on file Family History: Family History Problem Relation Age of Onset Diabetes Mother Hypertension Mother Diabetes Father Hypertension Father Allergies & Medications Allergies: Allergies Allergen Reactions Aktaitd-Mqo-Trm Reductase Inhibitors Current Meds: Current Outpatient Medications [...] results found for: IRONSAT , FERRITIN , [id number] , FOLATE Mineral and Bone Labs: No [...] of your patients! Please contact me at [phone] (Office) or [phone] (Answering service) with any questions. AVERY SYED MD [facility] This note was created with the assistance of a speech-recognition program. Although the intention is to generate a document that actually reflects the content of the visit, no guarantees can be provided that every mistake has been identified and corrected by editing. AVERY SYED MD,PhD FACP [facility] ANY QUESTIONS FEEL FREE TO CALL: 1. OFFICE [phone] 2. ANSWERING SERVICE: [phone] documented in this encounterMetroHealth Parma Medical Center10-09-2024 NoteCardiovascular Medicine [place] [facility] SUBJECTIVE Chief Complaint Patient presents with Atrial Fibrillation Coronary Artery Disease Delano Ren is a 84 y.o. male here for follow-up. HPI PMHx: chronic systolic heart failure, persistent afib, CAD, hypertension, and dilated cardiomyopathy s/p ICD He was in the ER last week for c/o low BP and dizziness. He went to [facility] and they told him he was [...] List Diagnosis Stage 3 chronic kidney disease ([facility]) Bacteremia Chronic systolic heart failure ([facility]) Dyslipidemia Edema of lower extremity Hyperlipidemia Hypertensive disorder Left ventricular systolic dysfunction Osteomyelitis of vertebra ([facility]) Paroxysmal atrial flutter ([facility]) Proteinuria Type 2 diabetes mellitus ([facility]) COPD (chronic obstructive pulmonary disease) ([facility]) Dilated cardiomyopathy ([facility]) Statin intolerance Stage 4 chronic kidney disease ([facility]) Chronic bronchitis, simple ([facility]) Chronic venous insufficiency Constipation Hyperlipidemia type II Hypothyroidism due to medication Impaired mobility and activities of daily living Iron deficiency anemia Colon cancer (CMS/HCC) Mucopurulent chronic bronchitis ([facility]/HCC) Obstructive sleep apnea Pacemaker A-fib ([facility]) Psoas abscess, right ([facility]) Pulmonary hypertension ([facility]/HCC) Thyrotoxicosis Type 2 diabetes mellitus with hyperglycemia ([facility]) Past Medical History: Diagnosis Date Arrhythmia CHF (congestive heart failure) ([facility]/HCC) Chronic kidney disease Family History Problem Relation Name Age of Onset Diabetes Mother Heart disease Father Glaucoma Brother Diabetes Maternal Grandmother Clotting disorder Other Social History Tobacco Use Smoking status: Former Types: Cigarettes Quit date: 1981 Years since quittin.8 Smokeless tobacco: Never Substance Use Topics Alcohol use: Yes Comment: OCCASIONAL Drug use: Never Allergies Allergen Reactions Colsnml-Kmp-Uqh Reductase Inhibitors Tramadol ROS Cardiovascular: Positive for [...] niacin 500 mg tablet, (more content not included)...[facility]10-09-2024 NotePt is here for a follow up from [facility] ER. Pt denies sob, chest pain, and palpatations. Review of Systems Cardiovascular: Positive for leg swelling. Hematologic/Lymphatic: Bruises/bleeds easily. All other systems reviewed and are negative.[facility] 07-09-2024 History of Present illness Narrative* Sidra [...] was councelled on the risks of stroke, MA, and sudden with MOLINA, along with the [...] to clinic: 1 year documented in this encounterCooper County Memorial [id number] Miscellaneous Notes* Telephone Encounter - Roslyn Wagner - 04/29/2024 9:02 AM EDT Pts called to schedule July f/u appt in [place] with SNF. Scheduled f/u appt and reminded to get labs 10 days prior. documented in this encounterMetroHealth [facility]ma [facility] Center07-15-2024 Telephone encounter Note* Telephone Encounter - Roslyn Wagner - 04/29/2024 9:02 AM EDT Pts called to schedule July f/u appt in [place] with SNF. Scheduled f/u appt and reminded to get labs 10 days prior. [employer]04-25-2024 History of Present illness Narrative* Avery Syed [...] Follows with Dr. Rodriguez Pulmonary medicine in [place] 60% Left renal artery stenosis noted in the past Decreased left ventricular function ejection fraction 30%. 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 His mostrecall his echo on 09/11/2023 showed an EF of 25-30%. He is no longer requiring a life vest. He is status post upgrade of permanent pacemaker to defibrillator an additional lead placement at the [facility] June 07, 2023. Grade 1 left ventricular diastolic dysfunction. Mild tricuspid regurgitation Mild mitral regurgitation Atrial flutter status post SUSAN cardioversion at [facility] in July of 2019.He did undergo an ablation after a hospital stay in October 2019. He is on anticoagulation with reduced dose Eliquis 2.5 mg p.o. b.I.d. 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 Adenocarcinoma the colon status post colectomy with reanastomosis in [place] August 2021. Being followed by Oncology with [...] (12/07/2023) Received from [facility] Safety & Environment Fear of Current or Ex-Partner: Not on file Emotionally Abused: Not on file Physically Abused: Not on file Sexually Abused: Not on file Physically or Sexually Abused: Not on file Housing Instability: Not on file Family History: Family History Problem Relation Age of Onset Diabetes Mother Hypertension Mother Diabetes Father Hypertension Father Allergies & Medications Allergies: Allergies Allergen Reactions Rmhvdte-Bmg-Omi Reductase Inhibitors Current Meds: Current Outpatient Medications [...] results found for: IRONSAT , FERRITIN , [id number] , FOLATE Mineral and Bone Labs: No [...] of your patients! Please contact me at [phone] (Office) or [phone] (Answering service) with any questions. AVERY SYED MD [facility] This note was created with the assistance of a speech-recognition program. Although the intention is to generate a document that actually reflects the content of the visit, no guarantees can be provided that every mistake has been identified and corrected by editing. documented in this [facility]04-25-2024 Instructions* Patient Instructions* Avery Syed MD - 02/08/2024 10:30 AM EDT Return in 6 months documented in this [facility] [id number] Miscellaneous Notes* Telephone Encounter - Ketan Osullivan - 01/26/2024 10:56 AM EDT Confirm appt with patient for 02/07 as well remind to have labs done 10-7 days before apt documented in this encounterKerbs [facility] HospitalNew [facility]04-12-2024 Telephone encounter Note* Telephone Encounter - Ketan Osullivan - 01/26/2024 10:56 AM EDT Confirm appt with patient for 02/07 as well remind to have labs done 10-7 days before apt [facility]-2024 Evaluation note* Encounter Date Diagnosis Assessment Notes Treatment Notes Treatment Clinical Notes Dec, Thyrotoxicosis (ICD-10 - E05.90) Dec, Hypothyroidism due t o medication (ICD-10 - E03.2) [employer] [facility] 11-12-2023 Evaluation note* Encounter Date Diagnosis Assessment Notes Treatment Notes Treatment Clinical Notes Aug, Hyperuricemia (ICD-1 0 - E79.0) [employer] Other 11-07-2023 Evaluation note* Encounter Date Diagnosis [...] are maintaining regular scheduled appts with their canvassing manager. No bleeding complications Aug, Mucopurulent chronic bronchitis [...] use, the patient reduces the risk for MA, CVA, HTN, cardiac dysrhythmias and sudden cardiac [...] the risk for cerebrovascular and cardiovascular disease. [employer] Other 09-07-2023 Evaluation note* Encounter Date Diagnosis Assessment Notes Treatment Notes Treatment Clinical Notes Jun, Hypothyroidism due t o medication (ICD-10 - E03.2) [employer] [facility] 07-06-2023 Evaluation note* Encounter Date Diagnosis [...] use, the patient reduces the risk for MA, CVA, HTN, cardiac dysrhythmias and sudden cardiac [...] are maintaining regular scheduled appts with their canvassing manager. No bleeding compliations Initiated on [facility] Other 05-30-2023 Evaluation note* Encounter Date Diagnosis Assessment Notes Treatment Notes Treatment Clinical Notes February, Hypothyroidism due t o medication (ICD-10 - E03.2) [facility] Other 05-19-2023 Progress note Author Leigha Nelson [facility] March 03, 2023 2:31pm Note Date/Time March 03, 2023 2:21p m [facility] [place] [address] Hem/Onc Follow Up Note - OP Signed Patient: Delano Ren MR#: [id number] : 1940 Acct:[id number] Age/Sex: 82 / M Type: REG RCR Copies to: MD Yas Lui DO Timothy J Adamowicz, II, DO~ [...] for coordination of care (as documented) and yres-ly-dgix counseling of patient and/or family. [facility] - Medical History Medical History: [...] Calcium 8.8, Iron 56, TIBC 281, Iron Krwpdbqozq29.9 L, Transferrin 201 L, Ferritin 236.7, Total [...] % (Auto) 68.3, Lymph % (Auto) 17.9, Hood % (Auto) 9.6, Eos % (Auto) 3.6, Baso % (Auto) 0.6, Nucleat RBC Rel Count 0.3, Neut # (Auto) 6.6, Lymph # (Auto) 1.7, Hood # (Auto) 0.9 H, Eos # (Auto) 0.3, Baso # (Auto) 0.1 - Home Medications and Allergies Allergies/Adverse Reactions: Allergies Nxidzvn-ATI-FoN Reductase Inhibitor [Olqzenp-Lzc-Oui Reductase Inhibitor] Allergy (Verified 03/03/23 13:45) Muscle [...] 1420 Signed By: <Electronically signed by EDWARD Ahuja Aj Talamantesrenée> 03/03/23 1431 [facility] Work Phone: 1(133) 663-439605-02-2023 Evaluation note* Encounter Date Diagnosis Assessment Notes Treatment Notes Treatment Clinical Notes February, Thyrotoxicosis (ICD-10 - E05.90) [facility] Other 03-29-2023 Evaluation note* Encounter Date Diagnosis [...] cardiomyopathy (ICD-10 - I42.0) Continue healthy diet. [facility] Other 03-02-2023 Evaluation note* Encounter Date Diagnosis [...] use, the patient reduces the risk for MA, CVA, HTN, cardiac dysrhythmias and sudden cardiac [...] Z12.5) Dec, Cardiac pacemaker (ICD-10 - Z95.0) [facility] Other 01-30-2023 Evaluation note* Encounter Date Diagnosis Assessment Notes Treatment Notes Treatment Clinical Notes Oct, Other thyrotoxicosis without thyrotoxic crisis or storm (ICD-10 - E05.80) [facility] Other 11-18-2022 Progress note Author Chivo Keller [facility] September 02, 2022 2:38pm Note Date/Time September 02, 2022 2:33pm [facility] [place] [address] Hem/Onc Follow Up Note - OP Signed Patient: Delano Ren MR#: [id number] : 1940 Acct:[id number] Age/Sex: 82 / M Type: REG RCR [...] for coordination of care (as documented) and vlpz-bw-moam counseling of patient and/or family. [facility] - Medical History Medical History: [...] % (Auto) 68.3, Lymph % (Auto) 18.5, Hood % (Auto) 8.4, Eos % (Auto) 4.3, Baso % (Auto) 0.5, Neut # (Auto) 4.6, Lymph # (Auto) 1.2, Hood # (Auto) 0.6, Eos # (Auto) 0.3, Baso # (Auto) 0.0, Nucleated RBC % (auto) 0.1 - Home Medications and Allergies Allergies/Adverse Reactions: Allergies Hbghsyr-CDU-LmI Reductase Inhibitor [Xwhmxta-Car-Ydn Reductase Inhibitor] Allergy (Verified 09/02/22 14:10) Muscle [...] by Chivo Keller II, DO> 09/02/22 1438 [facility] Work Phone: [phone]) 343-898410-06-2022 [facility] Progress note Author Leigha Nelson [facility] June 03, 2022 10:35am Note Date/Time June 03, 2022 10 :10am [facility] [place] [address] Hem/Onc Follow Up Note - OP Signed Patient: Delano Ren MR#: [id number] : 1940 Acct:[id number] Age/Sex: 82 / M Type: REG RCR Copies to: MD Yas Lui DO Timothy J Adamowicz ALESSANDRA, DO~ Date of Service: 06/03/2022 Time [...] for coordination of care (as documented) and muwt-rf-gzeq counseling of patient and/or family. [facility] - Medical History Medical History: [...] % (Auto) 69.9, Lymph % (Auto) 17.2, Hood % (Auto) 8.0, Eos % (Auto) 4.1, Baso % (Auto) 0.8, Neut # (Auto) 6.2, Lymph # (Auto) 1.5, Hood # (Auto) 0.7, Eos # (Auto) 0.4, Baso # (Auto) 0.1, Nucleated RBC % (auto) 0.0 - Home Medications and Allergies Allergies/Adverse Reactions: Allergies Xvihcoe-YEH-PhN Reductase Inhibitor [Lzzlnwv-Rxp-Www Reductase Inhibitor] Allergy (Verified 06/03/22 09:55) Muscle [...] 1035 [facility] Work Phone: 1([phone]) 363-719506-18-2022 NoteMR#: [id number] I [facility] Pt. Name: Delano Ren Admitted: 03/30/2022 Discharged: 04/02/2022 Date of : 1940 Physician: Gilmer Salazar MD DISCHARGE SUMMARY CONSULTING SERVICES: 1. Nephrology Service. 2. Endocrinology service. 3. Cardiology service. PRINCIPAL DIAGNOSES: 1. Plekd-sj-nfncrgl heart failure, reduced ejection fraction of 35%. 2. Acute kidney injury on chronic kidney disease, stage 4, resolved. 3. Dyspnea, on exertion. 4. Essential hypertension. 5. History of coronary artery disease. 6. Iodine-induced hyperthyroidism, uncontrolled. 7. Oul-cckuicx-ucfcoasfm diabetes mellitus, diet controlled, A1c 6.4. 8. [...] is a 81-year-old male who presented to [facility] with chief complaint of dyspnea on [...] overload occurs, he is to call his canvassing manager and/or PCP. The patient also require repeat [...] Adler PA-C Date Trans: 04/02/2022 02:36 P/hans [id number] cc: Yas Linda D.O. [address] [place] [id number] [facility]05-21-2022 NotePROCEDURE: XR CHEST 1 V REASON [...] Electronically authenticated by: NICK OLMEDO Date: 2022-03-05 21:29[facility]05-15-2022 Progress note Author Chivo Keller [facility] February 27, 2022 12:52pm Note Date/Time February 25, 2022 12:11 pm [facility] [place] [address] Hem/Onc Follow Up Note - OP Signed Patient: Delano Ren MR#: [id number] : 1940 Acct:[id number] Age/Sex: 81 / M Type: REG RCR Copies to: MD Yas Lui,DOEmiliano Date of Service: 02/25/2022 Time of [...] for coordination of care (as documented) and tgvy-uk-rcol counseling of patient and/or family. [facility] - Medical History Medical History: [...] % (Auto) 65.1, Lymph % (Auto) 19.2, Hood % (Auto) 13.3, Eos % (Auto) 1.8, Baso % (Auto) 0.6, Neut # (Auto) 4.2, Lymph # (Auto) 1.2, Hood # (Auto) 0.9H, Eos # (Auto) 0.1, [...] Home Medications and Allergies Allergies/Adverse Reactions: Allergies Iuhpsqe-CFW-ZhB Reductase Inhibitor [Zrpzftt-Axq-Rtw Reductase Inhibitor] Allergy (Verified 02/25/22 11:39) Muscle [...] by Chivo Keller II, DO> 02/27/22 1252 [facility] Work Phone: [phone]) 685-973611-16-2021 Consult note Author Nikunj Shultz [facility] August 31, 2021 9:50am Note Date/Time August 31, 2021 9:33am [facility] [place] [address] Hem/Onc Consult Note - OP Signed Patient: Delano Ren MR#: [id number] : 1940 Acct:[id number] Age/Sex: 81 / M Type: REG RCR [...] 2021. He has recovered well from surgery. [facility] - Medical History Medical History: [...] Type: None Home Medications & Allergies Allergies Zvhvygb-OQL-AbJ Reductase Inhibitor [Vhtivqb-Ftr-Xzw Reductase Inhibitor] Allergy (Verified 08/31/21 08:57) Muscle [...] or Bravo syndrome. I will discuss with [employer] and refer the patient for genetic testing. - Time with Patient Coordination of Care & Counseling Time: Greater than 50% of time spent with patient was for coordination of care (as documented) and jelx-ql-ywml counseling of patient and/or family. Dictated By: Nikunj Shultz MD DD/ 0932 Signed By: <Electronically signed by MD Nikunj Shultz> 08/31/21 0950 [facility] Work Phone: Evaluation note* Diagnosis Onset Date Resolution Status Colon cancer acute [facility] Work Phone: Evaluation noteNo Myze Other Evaluation note* Diagnosis Onset Date Resolution [...] (prostate specific antigen) noneactive Colon cancer acute [place] Work Phone: Evaluation note* Diagnosis Onset Date Resolution Status Colon cancer acute Chronic bronchitis, simple a cute Chronic HFrEF (heart failure with reduced ejection fraction) acute Colon cancer acute Hypothyroidism due to medication acute Nonischemic dilated cardiomyopathy acute Obstructive sleep apnea acut e Paroxysmal atrial fibrillation acute Primary hypertension acute Stage 4 chronic kidney disease acute Type 2 diabetes mellitus with hyperglycemia acute [place] Work Phone: Evaluation note* Diagnosis Bilateral impacted cerumen- Primary Impacted cerumen documented in this encounter [facility] HealthcareEvaluation note* Diagnosis MOLINA (obstructive sleep apnea)- Primary Obstructive sleep apnea (adult) (pediatric) Hypersomnia Hypersomnia, unspecified Primary insomnia Persistent disorder of initiating or maintaining sleep Snoring Other dyspnea and respiratory abnormality Hypoxia Hypoxemia documented in this encounter [facility] HealthcareEvaluation note* Diagnosis Stage 4 chronic kidney disease (CMS-HCC)- Primary [facility] this [facility]* Diagnosis Stage 4 chronic kidney disease (CMS-HCC)- Primary [facility]* Diagnosis Sensorineural hearing loss (SNHL) of both ears- Primary documented in this encounter [facility]* Diagnosis Onset Date Resolution Status Admit Date Chronic bronchitis, simple acute December 19, 2024 8:49am Chronic HFrEF (heart failure with reduced ejection fraction) acute December 19, 2024 8:49am Colon cancer acute December 19, 025 8:49am Hypothyroidism due to medication acute December 19, 2024 8:49am Nonischemic dilated cardiomyopathy acute December 19, 2024 8:49am Obstructive sleep apnea acute M arch 2024 8:49am Paroxysmal atrial fibrillation acute December 19, 2024 8:49am Primary hypertension acute [place] 2024 8:49am Stage 4 chronic kidney disease acute December 19, 2024 8:49am Thyrotoxicosis acute December 19, 2024 8:49am Type 2 diabetes mellitus wit h hyperglycemia acute December 19, 2024 8:49am Medicare annual wellness vis it, subsequent noneactive December 19, 2024 8:49am Screening PSA (prostate specific antigen) noneactive December 19 8:49am [place] Work Phone: Evaluation note* Diagnosis Diabetic polyneuropathy associated with type 2 diabetes mellitus ([facility])- Primary Onychodystrophy Other specified disease of nail Onychomycosis Dermatophytosis of nail documented in this encounter [facility]* [...] HealthcareHistory and physical note Author Ramesh Rascon [facility] July 21, 2022 9:27am Note Date/Time July 21, 2022 9: 27am [facility] [address] [place] [address] Gastroenterology H&P Signed Patient: Delano Ren MR#: [id number] : 1940 Acct:[id number] Age/Sex: 82 / M Adm Date: 2 [...] signed by Ramesh Rascon MD> 07/21/22926 [facility] Work Phone: History general Narrative - [...] HEART CATH 04/2016 Hospitalization History See above [facility] Other Hisdiwq general Narrative - Reported* Type Description Date [...] History INSERTION OF DUAL LEAD PACEMAKE R 20 Surgical History HEMICOLECTOMY, RIGHT 08/2021 Surgical History [facility]- RIGHT HEART CATH 03/2016- Surgical History [facility]- LEFT HEART CATH 04/2016 Surgical History Colonoscopy w/ polypectomy, rep eat in year 07/2022 Hospitalization History See above [facility] Other History general Narrative - Reported* Type [...] Biventricular ICD 05/2023 Hospitalization History See above [facility] Other Hospital Discharge instructions Additional Instructions DISCHARGE [...] NOT operate machinery such as power tools, [employer] mowers, snow blowers, sewing machines, etc. for [...] Follow up with PCP. - Office number [phone].[facility] Work Phone: InstructionsNot on filedocumented in this encounter [facility] SystemInstructionsNot on filedocumented in this encounter [facility] SystemProgress note Author Leigha Omar [facility] June 03, 2022 10:35am Note Date/Time June 03, 2022 10 :10am [facility] [place] [address] Hem/Onc Follow Up Note - OP Signed Patient: Delano Ren MR#: [id number] : 1940 Acct:[id number] Age/Sex: 82 / M Type: REG RCR Copies to: MD Yas Lui DO Timothy J Adamowicz, II, DO~ [...] for coordination of care (as documented) and qyuk-fy-tkmf counseling of patient and/or family. [facility] - Medical History Medical History: Medical History (Last Updated 06/03/22 @ 09:58 by Celia aBrron) A-fib hx ablation Anemia Arthritis CHF (congestive [...] % (Auto) 69.9, Lymph % (Auto) 17.2, Hood % (Auto) 8.0, Eos % (Auto) 4.1, Baso % (Auto) 0.8, Neut # (Auto) 6.2, Lymph # (Auto) 1.5, Hood # (Auto) 0.7, Eos # (Auto) 0.4, Baso # (Auto) 0.1, Nucleated RBC % (auto) 0.0 - Home Medications and Allergies Allergies/Adverse Reactions: Allergies Tucpkge-ZOA-FyT Reductase Inhibitor [Nfomlfp-Uyf-Oen Reductase Inhibitor] Allergy (Verified 06/03/22 09:55) Muscle [...] 1035 [facility] Work Phone: Progress note Author Chivo Keller [facility] September 02, 2022 2:38pm Note Date/Time September 02, 2022 2:33pm [facility] [place] [address] Hem/Onc Follow Up Note - OP Signed Patient: Delano Ren MR#: [id number] : 1940 Acct:[id number] Age/Sex: 82 / M Type: REG RCR Copies to: MD Yas Lui,DO~ Date of Service: 09/02/2022 Time of [...] for coordination of care (as documented) and zurq-ln-gfwm counseling of patient and/or family. [facility] - Medical History Medical History: [...] % (Auto) 68.3, Lymph % (Auto) 18.5, Hood % (Auto) 8.4, Eos % (Auto) 4.3, Baso % (Auto) 0.5, Neut # (Auto) 4.6, Lymph # (Auto) 1.2, Hood # (Auto) 0.6, Eos # (Auto) 0.3, Baso # (Auto) 0.0, Nucleated RBC % (auto) 0.1 - Home Medications and Allergies Allergies/Adverse Reactions: Allergies Kmmsdzl-GOG-AuI Reductase Inhibitor [Wgmupcr-Com-Dou Reductase Inhibitor] Allergy (Verified 09/02/22 14:10) Muscle [...] by Chivo Keller II, DO> 09/02/22 1438 [facility] Work Phone: Progress note Author Chivo Keller [facility] September 01, 2023 2:14pm Note Date/Time September 01, 2023 2:09pm [facility] [place] [address] Hem/Onc Follow Up Note - OP Signed Patient: Delano Ren MR#: [id number] : 1940 Acct:[id number] Age/Sex: 83 / M Type: REG RCR Copies to: MD Yas Lui DO~ Date of Service: 09/01/2023 Time [...] for coordination of care (as documented) and hrnm-mz-fqgz counseling of patient and/or family. [facility] - Medical History Medical History: [...] Calcium 9.7, Iron 84, TIBC 290, Iron Yjewjztlnv26.0, Transferrin 207, Ferritin 239.3, Total Bilirubin 0.8, AST 23, ALT 20, Alkaline Phosphatase 114 H, Total Protein 6.9, Albumin 4.4, Globulin 2.5, Albumin/Globulin Ratio 1.8 08/30/23 09:32: Corrected WBC 7.0, Uncorrected WBC Count 7.0, RBC 3.96, Hgb 12.3L, Hct 36.8 L, MCV 92.8, MCH 30.9, MCHC 33.3, RDW 14.8, Plt Count 206, MPV 7.6, Neut % (Auto) 65.9, Lymph % (Auto) 21.9, Hood % (Auto) 7.9, Eos % (Auto) 3.8, Baso % (Auto) 0.5, Nucleat RBC Rel Count 0.1, Neut # (Auto) 4.6, Lymph # (Auto) 1.5, Hood # (Auto) 0.5, Eos # (Auto) 0.3, Baso # (Auto) 0.0 - Home Medications and Allergies Allergies/Adverse Reactions: Allergies Clpoghb-UZA-BbD Reductase Inhibitor [Uvxkats-Dle-Rit Reductase Inhibitor] Allergy (Verified 03/03/23 13:45) Muscle [...] by Chivo Keller II, DO> 09/01/23 1414 [facility] Work Phone: Progress note Author Chivo Keller [facility] March 01, 2024 11:39am Note Date/Time March 01, 2024 11:18 am [facility] [place] [address] Cancer Center Note Signed Patient: Delano Ren MR#: [id number] : 1940 Acct:[id number] Age/Sex: 83 / M Type: REG AMB [...] Allergy (Unknown, Verified 12/18/23 10:02) Unknown Reaction Szdbxkz-QJP-ShK Reductase Inhibitor [Jumstdd-Msb-Exo Reductase Inhibitor] Allergy (Unknown, Verified 12/18/23 10:02) [...] PO DAILY ezetimibe 10 mg PO DAILY miujwqfsnou-vttjaawop-qqewqikh 200-62.5-25 mcg (Trelegy Ellipta) 1 inh inhalation [...] No concerns voiced at time of intake. [facility] Medical History Medical History (Updated [...] by Chivo Keller II, DO> 03/01/24 1139 [place] Work Phone: Reason for referral (narrative)No reason for referral information availableCent[place] Work Phone: Summary Purpose Family History Relationship [...] Date/T sergio father Congestive heart failure Unknown Unknown Heart [...] 2:06pm Type 2 diabetes mellitus with hyperglyce [facility] December 27, 2024 2:06pm Femoral neck fracture [...] m OP 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, [employer] February 11:18am Z96.641 - Presence of right [...] 1:59pm OP 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, [employer] February 11:18am Z96.641 - Presence of right [...] 1:59pm OP 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, [employer] February 11:18am Z96.641 - Presence of right [...] Date OP 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, [employer] February 11:18am Z96.641 - Presence of right [...] Colon cancer June 06, 2025 12 :43pm Chief Complaint Admit Date RENAL 3 MONTH F/U April 17, 2025 3:08p m 10-12 WEEKS April 29, 2025 9:55 am Follow Up 3 Months June 06, 2025 12 :41pm Colon Cancer June 06, 2025 12 :43pm Reason for Visit Admit Date Anemia of renal disease April 17, 2025 [...] Colon cancer June 06, 2025 12 :43pm Chief Complaint Admit Date RENAL 3 MONTH F/U April 17, 2025 3:08p m 10-12 WEEKS April 29, 2025 9:55 am Follow Up 3 Months June 06, 2025 12 :41pm Colon Cancer June 06, 2025 12 :43pm 3 mo f/u July 08, 2025 9:17am Reason for Visit Admit Date Anemia of renal disease April 17, 2025 3 :08pm Chronic HFrEF (heart failure with reduced ejection fraction) April 17, 2025 3:08pm Hypercholesteremia April 17, 2025 3:08p m Secondary hyperparathyroidism April 17, 2025 3:08pm Type 2 diabetes mellitus wit h diabetic chronic kidney disease April 17, 2025 3:08pm Hypertensive chronic kidney disease with stage 1 through stage 4 chronic ki Loni 3rd, 2025 3:08pm Stage 4 chronic kidney disease April 17, 2025 3:08pm Femoral neck fracture April 29, 2025 9: 55am Status post hemiarthroplasty of right hi p April 29, 2025 9:55am Trochanteric bursitis, left hip April 9:55am Acute blood loss anemia June 06 12:41pm Colon cancer June 06, 2025 12 :41pm Secondary hyperparathyroidism May 12:41pm Colon cancer June 06, 2025 12 :43pm Hyposomnia July 07, 2025 10:20am Hypoxia July 07, 2025 10:20am Obstructive sleep apnea July 07, 2025 10:20am Primary insomnia July 07, 2025 10:20am Snoring July 07, 2025 10:20am Acute blood loss anemia July 08, 2025 9:17am Chronic bronchitis, simple June 9:17am Chronic HFrEF (heart failure with reduced ejection fraction) July 08, 2025 9:17am Chronic kidney disease July 08, 025 9:17am Colon cancer July 08, 2025 9:17am Hypercholesteremia July 08, 2025 9:17am Hypothyroidism due to medication Septemb er 2024 9:17am Nonischemic dilated cardiomyopathy Septe mber 2024 9:17am Additional Source Comments (unrecognized sect ion and content) No Status Records FoundNo Status Records FoundNo Status Records FoundNo Status Records FoundNo Status Records FoundNo Status Records Found INFORMATION SOURCE (unrecogn ized section and content) DATE CREATED AUTHOR 07/09/2021 [facility] DATE CREATED AUTHOR AUTHOR'S ORGANIZ ATION 06/10/2022 [facility] DATE CREATED AUTHOR AUTHOR'S ORGANIZ ATION 03/01/2023 [facility] DATE CREATED AUTHOR AUTHOR'S ORGANIZ ATION 05/27/2025 [facility] EPIC DATE CREATED AUTHOR AUTHOR'S ORGANIZ ATION 06/04/2025 [facility] DATE CREATED AUTHOR AUTHOR'S ORGANIZ ATION 06/30/2025 [facility] Care Teams (unrecognized sec tion and [...] Linda DO Primary Care Provider Active Start: July 01, 2025 Yas Linda DO Attending Provider Active Sta rt: July 01, 2025 Team Status: Inactive Member Role Status Michelle Linda DO Primary Care Provider Active Start: July 07, 2025 End: July 07, 2025 Sidra Deleon DO Attending Provider Active Sta rt: July 07, 2025 End: July 07, 2025 Team Status: Inactive Member Role Status Michelle Linda DO Primary Care Provider Active Start: July 08, 2025 End: July 08, 2025 Yas Linda DO Attending Provider Active Sta rt: July 08, 2025 End: July 08, 2025 Team Status: Active Member Role Status Michelle Linda DO Primary Care Provider Active Team [...] Team Status: Active Member Role Status Dates aYs Linda DO Primary Care Provider Active Start: June 06, 2025 Kalia Sánchez MD Referring Provider Active Sta rt: June 06, 2025 Chivo Keller II DO Attending Provider Active Start: June 06, 2025 Team Status: Active Member Role Status Dates Yas Linda DO Primary Care Provider Active Start: July 01, 2025 Yas Linda DO Attending Provider Active Sta rt: July 01, 2025 Team Status: Inactive Member Role Status Dates Yas Linda DO Primary Care Provider Active Start: July 07, 2025 End: July 07, 2025 Sidra Deleon DO Attending Provider Active Sta rt: July 07, 2025 End: July 07, 2025 Team Status: Inactive Member Role Status [...] 28, 2025 End: February 28, 2025 Chivo Kleler II, DO Attending Provider Active Start: February [...] Walker Soria MD Other Provider Active Start: 2024 End: December 27, 2024 Wendy Mota MD Other Provider Active Star t: December 21, 2024 End: December 27, 2024 CHARLENE Butt Other Provider Active Start: December 21, 2024 [...] Winsome Goff MD Other Provider Active Start: M 2024 End: December 27, 2024 CHARLENE Joyner Other Provider Active Start: December 21, 2024 End: December 27, 2024 Zahida Flowers MD Other Provider Active Start: [facility] 2024 End: December 27, 2024 Kaitlynn Emanuel MD Other Provider Active Start: [facility] 2024 End: December 27, 2024 Talisha Hitchcock MD Other Provider Active Start: [facility] 2024 End: December 27, 2024 Sotero Black MD Other Provider Active Start: [facility] 2024 End: December 27, 2024 [...] Walker Soria MD Other Provider Active Start: [facility] 2024 Wendy Mota MD Attending Provider , Other Provider Active Start: December 22, 2024 CHARLENE Butt Other Provider Active Start: December 22, 2024 José Luis Winslow DO Other Provider Active Start : December 22, 2024 Mazin Erickson II, MD Other Provider Active S tart: December 22, 2024 Dario Rosales DO Other Provider Active Start: December 22, 2024 Emile Reynolds DO Other Provider Active Start: December 22, 2024 Winsome Goff MD Other Provider Active Start: [facility] 2024 CHARLENE Joyner Other Provider Active Start: December 22, 2024 Zahida Flowers MD Other Provider Active Start: [facility] 2024 Kaitlynn Emanuel MD Other Provider Active Start: [facility] 2024 Talisha Hitchcock MD Other Provider Active Start: [facility] 2024 Sotero Black MD Other Provider Active Start: arch 2024 Brenda EDWARD Driscoll Other Provider Active St art: December 22, 2024 William Quinteros Jr, DO Other Provider Active S tart: December 22, 2024 Clyde Bedolla MD Other Provider Active Start: December 22, 2024 Team Status: Active Member Role Status Dates Yas Linda DO Primary Care Provider Active Start: December 22, 2024 Walker Soria MD Other Provider Active Start: arch 2024 Wendy Mota MD Other Provider [...] Duncan Meier MD Other Provider Active Start: [facility] 2024 Adan Díaz MD Other Provider Active [...] Start: December 23, 2024 José Luis Winslow , Other Provider Active Start : December 23, 2024 Mazin Erickson II, MD Other Provider Active S tart: December 23, 2024 Dario Rosales , Other Provider Active Start: December 23, 2024 Emile Reynolds , Other Provider Active Start: December 23, 2024 Team Status: Active Member Role Status Dates Yas Linda DO Primary Care Provider Active Start: December 24, 2024 Sudha Sood MD Admit Provider Active Start : December 24, 2024 Walker Soria MD Other Provider Active Start: [facility] 2024 Wendy Mota MD Other Provider Active Star t: December 24, 2024 JOSUE ButtC Other Provider Active Start: December 24, 2024 José Luis Winslow DO Other Provider Active Start : December 24, 2024 Mazin Erickson II, MD Other Provider Active S tart: December 24, 2024 Dario Rosales DO Other Provider Active Start: December 24, 2024 Emile Reynolds , Other Provider Active Start: December 24, 2024 Talisha Hitchcock MD Other Provider Active Start: [facility] 2024 Sotero Black MD Other Provider Active Start: [facility] 2024 Brenda Driscoll APRN Other Provider Active St art: December 24, 2024 William Quinteros Jr DO Other Provider Active S tart: December 24, 2024 Clyde Bedolla MD Other Provider Active Start: December 24, 2024 Winsome Goff MD Other Provider Active Start: [facility] 2024 CHARLENE Joyner Other Provider Active Start: December 24, 2024 Zahida Flowers MD Attending Provider, Other Provider Active Start: December 24, 2024 Kaitlynn Emanuel MD Other Provider Active Start: [facility] 2024 Team Status: Active Member Role Status Dates Yas Linda DO Primary Care Provider Active Start: December 25, 2024 Sudha Sood MD Admit Provider Active Start : December 25, 2024 Walker Soria MD Other Provider Active Start: [facility] 2024 Wendy Mota MD Other Provider Active Star t: December 25, 2024 Kiesha Hawley NP-C Other Provider Active Start: December 25, 2024 José Luis Winslow , DO Other Provider Active Start : December 25, 2024 Mazin Erickson II, MD Other Provider Active S tart: December 25, 2024 Dario Rosales , Other Provider Active Start: December 25, 2024 Emile Reynolds , Other Provider Active Start: December 25, 2024 Winsome Goff MD Other Provider Active Start: [facility] 2024 JOSUE JoynerC Other Provider Active Start: December 25, 2024 Zahida Flowers MD Other Provider Active Start: [facility] 2024 Kaitlynn Emanuel MD Other Provider Active Start: [facility] 2024 Talisha Hitchcock MD Other Provider Active Start: [facility] 2024 Sotero Black MD Other Provider Active Start: [facility] 2024 Brenda Driscoll APRN Other Provider Active St art: December 25, 2024 William Quinteros Jr, DO Other Provider Active S tart: December 25, 2024 Clyde Bedolla MD Attending Pr brittani, Other Provider Active Start: December 25, 2024 [...] Balbuena , CAROL Other Provider Active Start: [facility] 2024 End: January 10, 2025 Pati Brice RN Other Provider Active Start: [facility] 2024 End: January 10, 2025 Vicky Jasso [...] 2024 End: January 10, 2025 Yassine De León MD Other Provider Active Start: December 27, 2024 End: January 10, 2025 Sudha Sood MD Other Provider Active Start : December 27, 2024 End: January 10, 2025 Micah Curry DO Other Provider Active St art: December 27, 2024 End: January 10, 2025 Nav Peterson MD Other Provider Active Start: [facility] 2024 End: January 10, 2025 Zoie Field APRN Other Provider Active Start: December 27, 2024 End: January 10, 2025 Jaye Jorgensen MD Other Provider Active Start: December 27, 2024 End: January 10, 2025 Augustine Bishop MD Other Provider Active Start: [facility] 2024 End: January 10, 2025 Jan Prasad MD Other Provider Active Start: December 27, 2024 End: January 10, 2025 Shannan Valentin MD Other Provider Active Start: December 27, 2024 End: January 10, 2025 Micah Lyn DO Other Provider Active Start: December 27, 2024 End: January 10, 2025 Elliott Cole MD Other Provider Active Start: [facility] 2024 End: January 10, 2025 Yaron Devi MD Other Provider Active Start: [facility][1] 2024 End: January 10, 2025 Candi Stone NP-C Other Provider Active St art: December 27, 2024 End: January 10, 2025 Matthew Grey APRN Other Provider Active Star t: December 27, 2024 End: January 10, 2025 Kuldeep See MD Other Provider Active Start: December 27, 2024 End: January 10, 2025 Kings Goncalves MD Other Provider Active Start: [facility] 2024 End: January 10, 2025 Eloy Resendiz MD Other Provider Active Start: [facility][1] 2024 End: January 10, 2025 Jon Cowan MD Other Provider Active Star t: December 27, 2024 End: January 10, 2025 Elias Fermin MD Other Provider Active Start: [facility] 2024 End: January 10, 2025 Mirian Calvo DO Other Provider Active Start: [facility] 2024 End: January 10, 2025 Vish Bajwa DO Other Provider Active Start : December 27, 2024 End: January 10, 2025 Krysten Mcclelland APRN Other Provider Active Start: December 27, 2024 End: January 10, 2025 Emile Reynolds DO Other Provider Active Start: December 27, [...] Los Calderon MD Other Provider Active Start: [facility] 2024 End: January 10, 2025 [...] Magnolia Pierce MD Other Provider Active Start: [facility] 2024 End: January 10, 2025 Laurent Jain MD Other Provider Active Start: [facility] 2024 End: January 10, 2025 Sotero Mijares MD Other Provider Active Start: December 27, 2024 End: January 10, 2025 Nav Harmon MD Other Provider Active Start : December 27, 2024 End: January 10, 2025 Dano Monson MD Other Provider Active Start: [facility] 2024 End: January 10, 2025 Aria Schaffer APRN Other Provider Active Sta rt: December 27, 2024 End: January 10, 2025 Alvina Ch APRN Other Provider Active Start: December 27 End: January 10, 2025 Aura Kay RN Other Provider Active Start: [facility] 2024 End: January 10, 2025 Winsome Goff MD Other Provider Active Start: [facility] 2024 End: January 10, 2025 Judy Macias NP-C Other Provider Active Start: December 27, 2024 End: January 10, 2025 Zahida Flowers MD Other Provider Active Start: [facility] 2024 End: January 10, 2025 Kaitlynn Emanuel MD Other Provider Active Start: [facility] 2024 End: January 10, 2025 Ramesh Rascon MD Other Provider Active Start : December 27, 2024 End: January 10, 2025 Jerry Velasquez APRN Other Provider Active St art: December 27, 2024 End: January 10, 2025 Son Nicole MD Other Provider Active Start: [facility][1] 2024 End: January 10, 2025 Erica Tian [...] Merissa Balbuena RN Other Provider Active Start: [facility] 2024 Pati Birce RN Other Provider Active Start: [facility] 2024 Vicky Jasso MD Other Provider Active [...] Nav Peterson MD Other Provider Active Start: [facility] 2024 Zoie Field APRN Other Provider Active Start: December 28, 2024 Jaye Jorgensen MD Other Provider Active Start: December 28, 2024 Augustine Bishop MD Other Provider Active Start: [facility] 2024 Jan Prasad MD Other Provider Active Start: December 28, 2024 Shannan Valentin MD Other Provider Active Start: December 28, 2024 Micah Lyn DO Other Provider Active Start: December 28, 2024 Elliott Cole MD Other Provider Active Start: [facility] 2024 Yaron Devi MD Other Provider Active Start: [facility][1] 2024 Candi Stone NP-Saman Other Provider Active St art: December 28, 2024 Matthew Grey APRN Other Provider Active Star t: December 28, 2024 Kuldeep See MD Other Provider Active Start: December 28, 2024 Kings Goncalves MD Other Provider Active Start: [facility] 2024 Eloy Resendiz MD Other Provider Active Start: [facility][1] 2024 Jon Cowan MD Other Provider Active Star t: December 28, 2024 Elias Fermin MD Other Provider Active Start: [facility] 2024 Mirian Calvo , Other Provider Active Start: [facility] 2024 Vish Bajwa , DO Other Provider Active Start : December [...] Los Calderon MD Other Provider Active Start: [facility] 2024 Live Grajeda MD Other Provider Active S tart: December 28, 2024 Doron Diaz , DO Other Provider Active Star t: December 28, 2024 Kia Garg , DO Other Provider Active Start: December 28, 2024 Wolfgang Resendiz MD Other Provider Active Start: December 28, 2024 India Haley MD Other Provider Active Start: December 28, 025 Lisa Sotelo APRN Other Provider Active Star t: December 28, 2024 Magnolia Pierce MD Other Provider Active Start: [facility] 2024 Laurent Jain MD Other Provider Active Start: [facility] 2024 Sotero Mijares MD Other Provider Active Start: December 28, 2024 Nav Harmon MD Other Provider Active Start : December 28, 2024 Dano Monson MD Other Provider Active Start: [facility] 2024 Aria Schaffer APRN Other Provider Active Sta rt: December 28, 2024 Alvina Ch APRN Other Provider Active Start: December 28, 025 Aura Kay RN Other Provider Active Start: [facility] 2024 Winsome Goff MD Other Provider Active Start: [facility] 2024 CHARLENE Joyner Other Provider Active Start: December 28, 2024 Zahida Flowers MD Attending Provider, Other Provider Active Start: December 28, 2024 Kaitlynn Emanuel MD Other Provider Active Start: [facility] 2024 Team Status: Active Member Role Status Dates Yas Linda DO Primary Care Provider Active Start: December 28, 2024 Sotero Black MD Admit Provider, Atte paing Provider, Other Provider Active Start: December 28, 2024 Noemy Bates , CAROL Other Provider Active Star t: December 28, 2024 Carolynn Jacobs , CAROL Other Provider Active Start : December 28, 2024 Gretel Kirkland , CAROL Other Provider Active Star t: December 28, 2024 Merissa Balbuena , CAROL Other Provider Active Start: [facility] 2024 Pati Brice , CAROL Other Provider Active Start: [facility] 2024 Vicky Jasso MD Other Provider Active [...] Nav Peterson MD Other Provider Active Start: [facility] 2024 Zoie Field APRN Other Provider Active Start: December 28, 2024 Jaye Jorgensen MD Other Provider Active Start: December 28, 2024 Augustine Bishop MD Other Provider Active Start: [facility] 2024 Jan Prasad MD Other Provider Active Start: December 28, 2024 Shannan Valentin MD Other Provider Active Start: December 28, 2024 Micah Lyn DO Other Provider Active Start: December 28, 2024 Elliott Cole MD Other Provider Active Start: [facility] 2024 Yaron Devi MD Other Provider Active Start: [facility][1] 2024 CHARLENE Knox Other Provider Active St art: December 28, 2024 Matthew Grey APRN Other Provider Active Star t: December 28, 2024 Kuldeep See MD Other Provider Active Start: December 28, 2024 Kings Goncalves MD Other Provider Active Start: [facility] 2024 Eloy Resendiz MD Other Provider Active Start: [facility][1] 2024 Jon Cowan MD Other Provider Active Star t: December 28, 2024 Elias Fermin MD Other Provider Active Start: [facility] 2024 Mirian Calvo , Other Provider Active Start: [facility] 2024 Vish Bajwa , Other Provider Active Start : December 28, 2024 Krysten cMclelland APRN Other Provider Active Start: December 28, 2024 Emile Reynolds DO Other Provider Active Start: December 28, 2024 Carole Burden MD Other Provider Active Sta rt: December 28, 2024 Siobhan Zhong APRN Other Provider Active Start : December 28, 2024 Aislinn Maria APRN Other Provider Active St art: December 28, 2024 Los Calderon MD Other Provider Active Start: [facility] 2024 Live Grajeda MD Other Provider Active S tart: December 28, 2024 Doron Diaz , Other Provider Active Star t: December 28, 2024 Kia Garg DO Other Provider Active Start: December 28, 2024 Wolfgang Resendiz MD Other Provider Active Start: December 28, 2024 India Haley MD Other Provider Active Start: December 28 Lisa Sotelo APRN Other Provider Active Star t: December 28, 2024 Magnolia Pierce MD Other Provider Active Start: [facility] 2024 Laurent Jain MD Other Provider Active Start: [facility] 2024 Sotero Mijares MD Other Provider Active Start: December 28, 2024 Nav Harmon MD Other Provider Active Start : December 28, 2024 Dano Monson MD Other Provider Active Start: [facility] 2024 Aria Schaffer APRN Other Provider Active Sta rt: December 28, 2024 Alvina Ch APRN Other Provider Active Start: December 28 025 Aura Kay RN Other Provider Active Start: [facility] 2024 Winsome Goff MD Other Provider Active Start: [facility] 2024 CHARLENE Joyner Other Provider Active Start: December 28, 2024 Zahida Flowers MD Other Provider Active Start: [facility] 2024 Kaitlynn Emanuel MD Other Provider Active Start: [facility] 2024 Team Status: Active Member Role Status Michelle Linda DO Primary Care Provider Active Start: January 03, 2025 Sotero Black MD Admit Provider, Othe r Provider Active Start: January 03, 2025 Noemy Bates , CAROL Other Provider Active Star t: January 03, 2025 Carolynn Jacobs , CAROL Other Provider Active Start : January 03, 2025 Gretel Kirkland RN Other Provider Active Star t: January 03, 2025 Merissa Balbuena , CAROL Other Provider Active Start: [facility] 2024 Pati Brice RN Other Provider Active Start: [facility] 2024 Vicky Jasso MD Other Provider Active [...] Nav Peterson MD Other Provider Active Start: [facility] 2024 Zoie Field APRN Other Provider Active Start: January 03, 2025 Jaye Jorgensen MD Other Provider Active Start: January 03, 2025 Augustine Bishop MD Other Provider Active Start: [facility] 2024 Jan Prasad MD Other Provider Active Start: January 03, 2025 Shannan Valentin MD Other Provider Active Start: January 03, 2025 Micah Lyn DO Other Provider Active Start: January 03, 2025 Elliott Cole MD Other Provider Active Start: [facility] 2024 Yaron Devi MD Other Provider Active Start: [facility][1] 2024 Candi Stone , MARINE D[employer]EL MECHANIC-C Other Provider Active St art: January 03, 2025 Matthew Grey APRN Other Provider Active Star t: January 03, 2025 Kuldeep See MD Other Provider Active Start: January 03, 2025 Kings Goncalves MD Other Provider Active Start: [facility] 2024 Eloy Resendiz MD Other Provider Active Start: [facility][1] 2024 Jon Cowan MD Other Provider Active Star t: January 03, 2025 Elias Fermin MD Other Provider Active Start: [facility] 2024 Mirian Calvo , DO Other Provider Active Start: [facility] 2024 Vish Bajwa , Other Provider Active [...] Los Calderon MD Other Provider Active Start: [facility] 2024 Live Grajeda MD Other Provider Active S tart: January 03, 2025 Doron Diaz , Other Provider Active Star t: January 03, 2025 Kia Garg , Other Provider Active Start: January 03, 2025 Wolfgang Resendiz MD Other Provider Active Start: January 03, 2025 India Haley MD Other Provider Active Start: January 03 Lisa Sotelo APRN Other Provider Active Star t: January 03, 2025 Magnolia Pierce MD Other Provider Active Start: [facility] 2024 Laurent Jain MD Other Provider Active Start: [facility] 2024 Sotero Mijares MD Other Provider Active Start: January 03, 2025 Nav Harmon MD Other Provider Active Start : January 03, 2025 Dano Monson MD Other Provider Active Start: [facility] 2024 Aria Schaffer APRN Other Provider Active Sta rt: January 03, 2025 Alvina Ch APRN Other Provider Active Start: January 03 Aura Kay , CAROL Other Provider Active Start: [facility] 2024 Winsome Goff MD Other Provider Active Start: [facility] 2024 CHARLENE Joyner Other Provider Active Start: January 03, 2025 Zahida Flowers MD Other Provider Active Start: [facility] 2024 Kaitlynn Emanuel MD Other Provider Active Start: [facility] 2024 Ramesh Rascon MD Other Provider Active Start : January 03, 2025 Jerry Velasquez APRN Other Provider Active St art: January 03, 2025 Son Nicole MD Attending Provider, Other Provider Active Start: January 03, 2025 Erica Tian DO Other Provider Active Start: January 03, [...] Balbuena , CAROL Other Provider Active Start: [facility] 2024 Pati Brice , CAROL Other Provider Active Start: [facility] 2024 Vicky Jasso MD Other Provider Active [...] Nav Peterson MD Other Provider Active Start: [facility] 2024 Zoie Field APRN Other Provider Active Start: January 04, 2025 Jaye Jorgensen MD Other Provider Active Start: January 04, 2025 Augustine Bishop MD Other Provider Active Start: [facility] 2024 Jan Prasad MD Other Provider Active Start: January 04, 2025 Shannan Valentin MD Other Provider Active Start: January 04, 2025 Micah Lyn DO Other Provider Active Start: January 04, 2025 Elliott Cole MD Other Provider Active Start: [facility] 2024 Yaron Devi MD Other Provider Active Start: [facility][1] 2024 Candi Stone , MARINE [employer]EL MECHANIC-C Other Provider Active St art: January 04, 2025 Matthew Grey APRN Other Provider Active Star t: January 04, 2025 Kuldeep See MD Other Provider Active Start: January 04, 2025 Kings Goncalves MD Other Provider Active Start: [facility] 2024 Eloy Resendiz MD Other Provider Active Start: [facility][1] 2024 Jon Cowan MD Other Provider Active Star t: January 04, 2025 Elias Fermin MD Other Provider Active Start: [facility] 2024 Mirian Calvo , Other Provider Active Start: [facility] 2024 Vish Bajwa , Other Provider Active Start : January 04, 2025 Krysten Mcclelland APRN Other Provider Active Start: January 04, 2025 Emile Reynolds , Other Provider Active Start: January 04, 2025 Carole Burden MD Other Provider Active Sta rt: January 04, 2025 Siobhan Zhong APRN Other Provider Active Start : January 04, 2025 Aislinn Maria APRN Other Provider Active St art: January 04, 2025 Los Calderon MD Other Provider Active Start: [facility] 2024 Live Grajeda MD Other [...] Magnolia Pierce MD Other Provider Active Start: [facility] 2024 Laurent Jain MD Other Provider Active Start: [facility] 2024 Sotero Mijares MD Other Provider Active Start: January 04, 2025 Nav Harmon MD Other Provider Active Start : January 04, 2025 Dano Monson MD Other Provider Active Start: [facility] 2024 Aria Schaffer APRN Other Provider Active Sta rt: January 04, 2025 Alvina Ch APRN Other Provider Active Start: January 04 Aura Kay RN Other Provider Active Start: [facility] 2024 Winsome Goff MD Attending Provider, Other Provider Active Start: January 04, 2025 CHARLENE Joyner Other Provider Active Start: January 04, 2025 Zahida Flowers MD Other Provider Active Start: [facility] 2024 Kaitlynn Emanuel MD Other Provider Active Start: [facility] 2024 Ramesh Rascon MD Other Provider Active Start : January 04, 2025 Jerry Velasquez APRN Other Provider Active St art: January 04, 2025 Son Nicole MD Other Provider Active Start: [facility][1] 2024 Erica Tian DO Other Provider Active Start: January 04, 2025 Gilles Kirkland APRN Other Provider Active Sta rt: January 04, 2025 Team Status: Active Member Role Status Dates Yas Linda DO Primary Care Provider Active Start: January 06, 2025 Sotero Black MD Admit Provider, Othe r Provider Active Start: January 06, 2025 Noemy Bates RN Other Provider Active Star t: January 06, 2025 Carolynn Jacobs , CAROL Other Provider Active Start : January 06, 2025 Gretel Kirkland , CAROL Other Provider Active Star t: January 06, 2025 Merissa Balbuena RN Other Provider Active Start: [facility] 2024 Pati Brice RN Other Provider Active Start: [facility] 2024 Vicky Jasso MD Other Provider Active [...] Nav Peterson MD Other Provider Active Start: [facility] 2024 Zoie Field APRN Other Provider Active Start: January 06, 2025 Jaye Jorgensen MD Other Provider Active Start: January 06, 2025 Augustine Bishop MD Other Provider Active Start: [facility] 2024 Jan Prasad MD Other Provider Active Start: January 06, 2025 Shannan Valentin MD Other Provider Active Start: January 06, 2025 Micah Lyn DO Other Provider Active Start: January 06, 2025 Elliott Cole MD Other Provider Active Start: [facility] 2024 Yaron Devi MD Other Provider Active Start: [facility][1] 2024 Candi Stone NP-C Other Provider Active St art: January 06, 2025 Matthew Grey APRN Other Provider Active Star t: January 06, 2025 Kuldeep See MD Other Provider Active Start: January 06, 2025 Kings Goncalves MD Other Provider Active Start: [facility] 2024 Eloy Resendiz MD Other Provider Active Start: [facility][1] 2024 Jon Cowan MD Other Provider Active Star t: January 06, 2025 Elias Fermin MD Other Provider Active Start: [facility] 2024 Mirian Calvo DO Other Provider Active Start: [facility] 2024 Vish Bajwa DO Other Provider Active [...] Los Calderon MD Other Provider Active Start: [facility] 2024 Live Grajeda MD Other [...] Magnolia Pierce MD Other Provider Active Start: [facility] 2024 Laurent Jain MD Other Provider Active Start: [facility] 2024 Sotero Mijares MD Other Provider Active Start: January 06, 2025 Nav Harmon MD Other Provider Active Start : January 06, 2025 Dano Monson MD Other Provider Active Start: [facility] 2024 Aria Schaffer APRN Other Provider Active Sta rt: January 06, 2025 Alvina Ch APRN Other Provider Active Start: January 06 Aura Kay RN Other Provider Active Start: [facility] 2024 Winsome Goff MD Other Provider Active Start: [facility] 2024 CHARLENE Joyner Other Provider Active Start: January 06, 2025 Zahida Flowers MD Other Provider Active Start: [facility] 2024 Kaitlynn Emanuel MD Other Provider Active Start: [facility] 2024 Ramesh Rascon MD Other Provider Active Start : January 06, 2025 Jerry Velasquez APRN Other Provider Active St art: January 06, 2025 Son Nicole MD Other Provider Active Start: Dec Erica Tian DO Other Provider Active Start: [...] Active Danuta Kelly NP-C Attending Provider Jesus staples Team Status: Inactive Member Role Status Dates Yas Linda , DO Primary Care Provider Active Ramesh Rascon MD Attending Provider Active Livestock Agent Relationship Specialty Start Date End Date Yas Linda MD [address] [place] [id number] PCP - General Internal Medicine 08/24/23 Livestock Agent Relationship Specialty Start Date End Date Yas Linda MD [address] [place] [id number] PCP - General Internal Medicine 08/24/23 Livestock Agent Relationship Specialty Start Date End Date Yas Linda MD [address] [place] [id number] PCP - General Internal Medicine 08/24/23 Livestock Agent Relationship Specialty Start Date End Date Yas Linda DO [address] [place] [address] PCP - General Internal Medicine 11/11/21 Livestock Agent Relationship Specialty Start Date End Date Yas Linda DO [address] [place] [address] PCP - General Internal Medicine 11/11/21 Livestock Agent Relationship Specialty Start Date End Date Yas Linda DO [address] [place] [address] PCP - General Internal Medicine 11/11/21 Livestock Agent Relationship Specialty Start Date End Date Yas Linda DO PCP - General Internal Medicine 11/11/21 Team Status: Active Member Role Status Dates Yas Linda DO Primary Care Provider Active Start: October 11, 2024 Trang Degroot MD Attending Provider Active Start : October 11, 2024 Team Status: Active Member Role Status Dates Yas Lnida DO Primary Care Provide r, Attending Provider [...] Active Start: December 30, 2024 Noemy Bates RN Other Provider Active Star t: December 30, 2024 Carolynn Jacobs , CAROL Other Provider Active Start : December 30, 2024 Gretel Kirkland RN Other Provider Active Star t: December 30, 2024 Merissa Balbuena RN Other Provider Active Start: [facility] 2024 Pati Brice RN Other Provider Active Start: [facility] 2024 Vicky Jasso MD Other Provider Active [...] Nav Peterson MD Other Provider Active Start: [facility] 2024 Zoie Field APRN Other Provider Active Start: December 30, 2024 Jaye Jorgensen MD Other Provider Active Start: December 30, 2024 Augustine Bishop MD Other Provider Active Start: [facility] 2024 Jan Prasad MD Other Provider Active Start: December 30, 2024 Shannan Valentin MD Other Provider Active Start: December 30, 2024 Micah Lyn DO Other Provider Active Start: December 30, 2024 Elliott Cole MD Other Provider Active Start: [facility] 2024 Yaron Devi MD Other Provider Active Start: [facility][1] 2024 Candi Stone NP-C Other Provider Active St art: December 30, 2024 Matthew Grey APRN Other Provider Active Star t: December 30, 2024 Kuldeep See MD Other Provider Active Start: December 30, 2024 Kings Goncalves MD Other Provider Active Start: [facility] 2024 Eloy Resendiz MD Other Provider Active Start: [facility][1] 2024 Jon Cowan MD Other Provider Active Star t: December 30, 2024 Elias Fermin MD Other Provider Active Start: [facility] 2024 Mirian Calvo DO Other Provider Active Start: [facility] 2024 Vish Bajwa DO Other Provider Active [...] Los Calderon MD Other Provider Active Start: [facility] 2024 Live Grajeda MD Other Provider Active S tart: December 30, 2024 Doron Diaz , Other Provider Active Star t: December 30, 2024 Kia Garg DO Other Provider Active Start: December 30, 2024 Wolfgang Resendiz MD Other Provider Active Start: December 30, 2024 India Haley MD Other Provider Active Start: December 30 Lisa Sotelo APRN Other Provider Active Star t: December 30, 2024 Magnolia Pierce MD Other Provider Active Start: [facility] 2024 Laurent Jain MD Other Provider Active Start: [facility] 2024 Sotero Mijares MD Other Provider Active Start: December 30, 2024 Nav Harmon MD Other Provider Active Start : December 30, 2024 Dano Monson MD Other Provider Active Start: [facility] 2024 Aria Schaffer APRN Other Provider Active Sta rt: December 30, 2024 Alvina Ch APRN Other Provider Active Start: December 30 Aura Kay RN Other Provider Active Start: [facility] 2024 Winsome Goff MD Other Provider Active Start: [facility] 2024 CHARLENE Joyner Other Provider Active Start: December 30, 2024 Zahida Flowers MD Other Provider Active Start: [facility] 2024 Kaitlynn Emanuel MD Other Provider Active Start: [facility] 2024 Team Status: Active Member Role Status Dates Walker Soria MD Attending Provider Active Star t: January 14, 2025 Yas Linda DO Primary Care Provider Active Start: January 14, 2025 Team Status: Inactive Member Role Status Dates Sotero Black MD Attending Provider Active Star t: January 16, 2025 End: January 16, 2025 Livestock Agent Relationship Specialty Start Date End Date Yas Linda DO PCP - General Internal Medicine 11/11/21 Livestock Agent Relationship Specialty Start Date End Date Yas Linda DO [address] [address] PCP - General Internal Medicine 02/18/25 Livestock Agent Relationship Specialty Start Date End Date Yas Linda DO [address] [address] PCP - General Internal Medicine 02/18/25 Livestock Agent Relationship Specialty Start Date End Date Yas Linda DO [address] [address] PCP - General Internal Medicine 02/18/25 Livestock Agent Relationship Specialty Start Date End Date Yas Linda DO [address] [address] PCP - General Internal Medicine 02/18/25 Livestock Agent Relationship Specialty Start Date End Date Yas Linda DO [address] [address] PCP - General Internal Medicine 02/18/25 Livestock Agent Relationship Specialty Start Date End Date Yas Linda DO [address] [address] PCP - General Internal Medicine 02/18/25 Livestock Agent Relationship Specialty Start Date End Date Yas Linda DO [address] [address] PCP - General Internal Medicine 02/18/25 Livestock Agent Relationship Specialty Start Date End Date Yas Linda DO [address] [address] PCP - General Internal Medicine 02/18/25 Livestock Agent Relationship Specialty Start Date End Date Yas Linda DO [address] [address] PCP - General Internal Medicine 02/18/25 Team Status: Inactive Member Role Status Dates Yas Lidna DO Primary Care Provide r, Attending Provider Active Start: March 25, 2025 End: March 25, 2025 Livestock Agent Relationship Specialty Start Date End Date Yas Linda DO [address] [address] PCP - General Internal Medicine 02/18/25 Livestock Agent Relationship Specialty Start Date End Date Yas Linda DO [address] [address] PCP - General Internal Medicine 02/18/25 Livestock Agent Relationship Specialty Start Date End Date Yas Linda DO [address] [address] PCP - General Internal Medicine 02/18/25 Livestock Agent Relationship Specialty Start Date End Date Yas Linda DO [address] [address] PCP - General Internal Medicine 02/18/25 Livestock Agent Relationship Specialty Start Date End Date Yas Linda DO [address] [facility] [place] [address] PCP - General Internal Medicine 02/18/25 Livestock Agent Relationship Specialty Start Date End Date Yas Linda DO [address] [facility] [place] [address] PCP - General Internal Medicine 02/18/25 Livestock Agent Relationship Specialty Start Date End Date Yas Linda DO [address] [facility] [place] [address] PCP - General Internal Medicine 02/18/25 Livestock Agent Relationship Specialty Start Date End Date Yas Linda DO [address] [facility] [place] [address] PCP - General Internal Medicine 02/18/25 Livestock Agent Relationship Specialty Start Date End Date Yas Linda DO [address] [facility] [place] [address] PCP - General Internal Medicine 02/18/25 Livestock Agent Relationship Specialty Start Date End Date Yas Linda DO [address] [facility] [address] PCP - General Internal Medicine 02/18/25 Team Status: Inactive Member Role Status Dates Yas Linda DO Primary Care Provider Active Start: January 28, 2025 End: January 28, 2025 Ysa Linda DO Attending Provider Active Sta rt: January 28, 2025 End: January 28, 2025 Livestock Agent Relationship Specialty Start Date End Date Yas Linda DO [address] [facility] [place] [address] PCP - General Internal Medicine 02/18/25 Livestock Agent Relationship Specialty Start Date End Date Yas Linda DO [address] [facility] [place] [address] PCP - General Internal Medicine 02/18/25 Livestock Agent Relationship Specialty Start Date End Date Yas Linda DO [address] [facility] [address] PCP - General Internal Medicine 02/18/25 Livestock Agent Relationship Specialty Start Date End Date Yas Linda DO [address] [facility] [address] PCP - General Internal Medicine 02/18/25 Livestock Agent Relationship Specialty Start Date End Date Yas Linda DO [address] [facility] [address] PCP - General Internal Medicine 02/18/25 Livestock Agent Relationship Specialty Start Date End Date Yas Linda DO [address] [facility] [address] PCP - General Internal Medicine 02/18/25 Livestock Agent Relationship Specialty Start Date End Date Yas Linda DO [address] [facility] [address] PCP - General Internal Medicine 02/18/25 Livestock Agent Relationship Specialty Start Date End Date Yas Linda DO [address] [facility] [address] PCP - General Internal Medicine 02/18/25 Livestock Agent Relationship Specialty Start Date End Date Yas Linda DO [address] [facility] [address] PCP - General Internal Medicine 02/18/25 Livestock Agent Relationship Specialty Start Date End Date Yas Linda DO [address] [address] PCP - General Internal Medicine 02/18/25 Livestock Agent Relationship Specialty Start Date End Date Yas Linda DO [address] [address] PCP - General Internal Medicine 02/18/25 Livestock Agent Relationship Specialty Start Date End Date Yas Linda DO [address] [facility], [facility] PCP - General Internal Medicine 02/18/25 Livestock Agent Relationship Specialty Start Date End Date Yas Linda DO [address] [facility] [address] PCP - General Internal Medicine 02/18/25 Livestock Agent Relationship Specialty Start Date End Date Yas Linda DO [address] [facility] [address] PCP - General Internal Medicine 02/18/25 Team Status: Inactive Member Role Status Dates Yas Linda DO Primary Care Provider Active Start: July 08, 2025 End: July 08, 2025 Yas Linda DO Attending Provider Active Sta rt: July 08, 2025 End: July 08, 2025 Goals (unrecognized section and content) Goals may [...] BE BASED ON THE PRIMARY CLINICAL RECORDS. [employer] provides no warranty or guarantee of the accuracy or completeness of information in this document.
--- NOTE | 2025-07-19 13:01 | ED.EXTPRO1 ---
HPI - Extremity Problem General Chief complaint: Extremity Problem, Nontraumatic Stated complaint: LEFT ARM BRUSE Time Seen by Provider: 07/19/25 12:15 Source: patient Mode of arrival: walk-in Limitations: no limitations History of Present Illness HPI Narrative: The patient is coming to the ER with a family at the bedside after they noticed a bruise on his left arm that showed up yesterday, there was no fall or trauma and the patient denies any injury or pain, he does take Xarelto that was adjusted almost a month ago after his mdm developer evaluated him for chronic kidney disease The patient have new bruises otherwise any other places Related Data Home Medications ?Medication ?Instructions ?Recorded ?Confirmed allopurinol 100 mg tablet 100 mg PO DAILY 07/17/24 07/19/25 ezetimibe 10 mg tablet 10 mg PO DAILY 07/17/24 07/19/25 fluticasone fur. 200 mcg-umeclid 1 inh inhalation DAILY 07/17/24 07/19/25 62.5 mcg-vilant 25 mcg inhalat.powder (Trelegy Ellipta) furosemide 80 mg tablet 40 mg PO DAILY 07/17/24 07/19/25 hydralazine 100 mg tablet 50 mg PO TID 07/17/24 07/19/25 isosorbide dinitrate 10 mg tablet 10 mg PO TID 07/17/24 07/19/25 metoprolol succinate 100 mg 100 mg PO DAILY 07/17/24 07/19/25 tablet,extended release 24 hr niacin 500 mg tablet 500 mg PO DAILY 07/17/24 07/19/25 potassium chloride 10 mEq 10 meq PO DAILY 07/17/24 07/19/25 tablet,extended release(part/cryst) ascorbic acid (vitamin C) 500 mg 500 mg PO DAILY 07/19/25 07/19/25 tablet (C-500) calcium 600 mg (as carbonate)-vit 1 tab PO DAILY 07/19/25 07/19/25 D3 20 mcg (800 unit) chewable tablet (Caltrate plus D) ferrous sulfate 325 mg (65 mg 325 mg PO DAILY 07/19/25 07/19/25 iron) tablet (iron) levothyroxine 50 mcg tablet 50 mcg PO QDAY 07/19/25 07/19/25 rivaroxaban 15 mg tablet (Xarelto) 15 mg PO DAILY 07/19/25 07/19/25 Allergies Allergy/AdvReac Type Severity Reaction Status Date / Time Fijsmet-HYH-NaX Reductase Allergy Severe pain Verified 07/19/25 12:10 Inhibitor tramadol Allergy Severe Hives Verified 07/19/25 12:10 Review of Systems ROS Status of ROS 10 or more systems reviewed and unremarkable except as noted in history and below [facility] Medical History (Updated 07/19/25 @ 12:48 by Willow Gallegos MD) Hypothyroid ?E03.9 - Hypothyroidism, unspecified (ICD-10) Diabetes type 2, controlled ?E11.9 - Type 2 diabetes mellitus without complications (ICD-10) History of cardioversion ?Z92.89 - Personal history of other medical treatment (ICD-10) Atrial fibrillation ?I48.91 - Unspecified atrial fibrillation (ICD-10) COPD (chronic obstructive pulmonary disease) ?J44.9 - Chronic obstructive pulmonary disease, unspecified (ICD-10) Back pain ?M54.9 - Dorsalgia, unspecified (ICD-10) Cardiac pacemaker ?Z95.0 - Presence of cardiac pacemaker (ICD-10) Heart block ?I45.9 - Conduction disorder, unspecified (ICD-10) Surgical History H/O cardiac radiofrequency ablation ?Z98.890 - Other specified postprocedural states (ICD-10) Social History Little interest or pleasure in doing things: not at all Feeling down, depressed, or hopeless: not at all Exam Narrative Exam Narrative: Nurses notes and vital signs reviewed and patient is not hypoxic. General: Well-appearing and in no apparent distress. Upper extremity exam; The patient had a bruise in the left upper extremity just of the elbow with no tenderness on palpation some of the bruising looked old and some look new, the patient also have an abrasion just in front of the anterior forearm just below the elbow that measure 1 cm linear and superficial Skin examination: Have no significant bruises otherwise in any other place except for the left upper extremity in the area just above the elbow Neurological: A&O x4. No cranial nerve dysfunction observed. No truncal ataxia. Moves all extremities. Sensation intact. Psychiatric: Cooperative and interactive. Normal mood and affect. Constitutional Vital Signs, click to edit/add: Last Vital Signs Temp 98.7 F 07/19/25 12:10 Pulse 74 07/19/25 12:10 Resp 16 07/19/25 12:10 BP 165/90 H 07/19/25 12:10 Pulse Ox 98 07/19/25 12:10 O2 Del Method Room Air 07/19/25 12:10 Course Vital Signs Vital signs: Vital Signs Temperature 98.7 F 07/19/25 12:10 Pulse Rate 74 07/19/25 12:10 Respiratory Rate 16 07/19/25 12:10 Blood Pressure 165/90 H 07/19/25 12:10 Pulse Oximetry 98 07/19/25 12:10 Oxygen Delivery Method Room Air 07/19/25 12:10 Temperature 98.7 F 07/19/25 12:10 Pulse Rate 74 07/19/25 12:10 Respiratory Rate 16 07/19/25 12:10 Blood Pressure 165/90 H 07/19/25 12:10 Pulse Oximetry 98 07/19/25 12:10 Oxygen Delivery Method Room Air 07/19/25 12:10 MDM - Extremity (Nontraumatic) MDM Narrative Medical decision making narrative: Patient mentioned that she measures blood pressure usually in his left upper extremity and they did claim to her that right now there is a pressure that getting applied to the left arm causing the bruising in addition to the fact that the patient age and taking anticoagulation also or other factors Right now the patient to monitor his left arm bruising to make sure that he is not applying pressure to that area The patient is to follow up with primary care physician in next 2-3 days or to return to the emergency department should any of the signs or symptoms worsen or new symptoms develop. The patient agrees with the following Diagnosis and Treatment plan and the patient will be discharged home. Discharge Plan Discharge Chief Complaint: Extremity Problem, Nontraumatic Clinical Impression: Arm bruise Patient Disposition: Home, Self-Care Time of Disposition Decision: 12:48 Condition: Good Prescriptions / Home Meds: No Action allopurinol 100 mg tablet 100 mg PO DAILY ezetimibe 10 mg tablet 10 mg PO DAILY Trelegy Ellipta 200-62.5-25 mcg blister with device 1 inh INHALATION DAILY furosemide 80 mg tablet 40 mg PO DAILY hydralazine 100 mg tablet 50 mg PO TID isosorbide dinitrate 10 mg tablet 10 mg PO TID metoprolol succinate 100 mg tablet extended release 24 hr 100 mg PO DAILY potassium chloride 10 mEq tablet,ER particles/crystals 10 meq PO DAILY niacin 500 mg tablet 500 mg PO DAILY levothyroxine 50 mcg tablet 50 mcg PO QDAY Caltrate 600 plus D 600 mg-20 mcg (800 unit) tablet,chewable 1 tab PO DAILY ferrous sulfate [iron] 325 mg (65 mg iron) tablet 325 mg PO DAILY ascorbic acid (vitamin C) [C-500] 500 mg tablet 500 mg PO DAILY Xarelto 15 mg tablet 15 mg PO DAILY Rx Instructions: must administer with evening meal Print Language: Bulgarian Instructions: Contusion in Adults (ED) Referrals: Arnie Lund DO [Primary Care Provider, Internal Medicine] - 1 week Discharge Date/Time: 07/19/25 12:57
== END 2025-07-19 12:57 | disposition home or self-care (01) ==
PROVIDERS: Emergency Provider Emergency Medicine; PCP Internal Medicine
DX: S40.022A Contusion of left upper arm, initial encounter (principal); Z79.01 Long term (current) use of anticoagulants
CPT/HCPCS: 99281

== ENCOUNTER 2025-07-22 12:32 | Outpatient (OUT) | payer MEDICARE, SELFPAY ==
--- OUTSIDE RECORDS SUMMARY | 2025-07-22 12:37 | XMS_ITS | Encounter Summary ---
Author Organization [facility] Address [address] [place] [address] Care Team Providers Care Sprinkler Installer Name Role Phone Arnie Lund DO Primary Care Provider [phone] Reason for Visit * Reason Comments Med Refill Encounter Details Date Type Department Care Team (Late st Contact Info) Description 04/15/2023 Refill [facility] Cardiology [address] [place] [address] Little Mckeon, GLOBAL RISK MANAGEMENT DIRECTOR [address] [place] [phone] Social History Tobacco Use Types Packs/Day Years [...] st Contact Info) Description 09/19/2025 Hospital Encounter [email or web address] Vascular Lab [address] [place] [address] Mariusz Montoya MD [address] [place] [address] Scheduled Procedures Name Priority Associated Diagnoses Date/Ti me Atrial Fib Ablation w/ PVI Paroxysmal atrial fibrillation (CMS/HCC) documented as of this encounter Visit Diagnoses Not on filedocumented in this encounter Care Teams Sprinkler Installer Relationship Specialty Start Date End Date Arnie Lund DO [address] [facility] [place] [address] PCP - General 06/07/22 documented as of this encounter
--- OUTSIDE RECORDS SUMMARY | 2025-07-22 12:37 | XMS_ITS | Encounter Summary ---
Author Organization [employer] tem Address [id number] [address] [place] [address] Care Team Providers Care Head Worker Name Role Phone Arnie Lund DO Primary Care Provider [phone] Encounter Details Date Type Department Care Team (Late st Contact Info) Description 09/23/2022 Telephone [facility] [address] [facility] [address] [place] [address] Etelvina Byrd RMA Social History Tobacco Use [...] on filedocumented in this encounter Care Teams Head Worker Relationship Specialty Start Date End Date Arnie Lund DO PCP - General Internal Medicine 11/11/21 documented as of this encounter
--- OUTSIDE RECORDS SUMMARY | 2025-07-22 12:37 | XMS_ITS | Encounter Summary ---
Author Organization [employer] tem Address [facility] [id number] [address] [place] [address] Care Team Providers Care Graves Registration Specialist Name Role Phone Arnie Lund DO Primary Care Provider [phone] Reason for Visit * Reason Comments Med Refill Encounter Details Date Type Department Care Team (Late st Contact Info) Description 11/03/2023 Refill [facility] [address] [place] [address] Americo Shaw MD [address] [place], [place] [id number] Social History Tobacco Use Types Packs/Day Years [...] on filedocumented in this encounter Care Teams Graves Registration Specialist Relationship Specialty Start Date End Date Arnie Lund DO PCP - General Internal Medicine 11/11/21 documented as of this encounter
--- OUTSIDE RECORDS SUMMARY | 2025-07-22 12:37 | XMS_ITS ---
Author Organization [facility] Address [address] [place] [address] Care Team Providers Care Director Title Name Role Phone KevonArnie DO Primary Care Provider [phone] Active Problems Problem Noted Date Diagnosed Date [...] (04/04/2023): Added automatically from request for surgery [id number] Stage 3 chronic kidney disease 06/09/2022 Chronic systolic heart failure 06/09/2022 Assessment & Plan (09/20/2022 5:21 PM EST): -HFrEF -NHYA III -he appears euvolemic on exam despite weight gain, this could be attributed to correcting thyroid issues -He has no LE edema, JVD -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 net sorter regarding kidney function -he will need 3 [...]
--- OUTSIDE RECORDS SUMMARY | 2025-07-22 12:37 | XMS_ITS | Encounter Summary ---
Author Organization [employer] tem Address [id number] [address] [place] [address] Care Team Providers Care Sap Hana Developer Name Role Phone Arnie Lund DO Primary Care Provider [phone] Encounter Details Date Type Department Care Team (Late st Contact Info) Description 04/14/2023 Telephone [facility] [address] [place] [phone] Etelvina Byrd RMA Social History Tobacco Use [...] on filedocumented in this encounter Care Teams Sap Hana Developer Relationship Specialty Start Date End Date Arnie Lund DO PCP - General Internal Medicine 11/11/21 documented as of this encounter
--- OUTSIDE RECORDS SUMMARY | 2025-07-22 12:37 | XMS_ITS | Clinical Summary ---
Author Organization [facility] Address [address] [place] [address] Care Team Providers Care Quality Control Analyst Name Role Phone Arnie Lund DO Primary Care Provider [phone] Allergies Active Allergy Reactions Criticality Noted Date Comments Rgzglya-Xij-Jbl Reductase Inhibitors 06/09/2022 Tramadol 06/09/2022 Medications allopurinol [...] (04/04/2023): Added automatically from request for surgery [id number] Stage 3 chronic kidney disease 06/09/2022 Chronic systolic heart failure 06/09/2022 Assessment & Plan (09/20/2022 5:21 PM EST): -HFrEF -NHYA III -he appears euvolemic on exam despite weight gain, this could be attributed to correcting thyroid issues -He has no LE edema, JVD -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 geography instructor regarding kidney function -he will need 3 [...] Encounters Date Type Department Care Team Description 07/21/2025 Telephone [facility] [address] [facility] [place] [address] Kalee Mahmood MA 06/27/2025 Refill [facility] [address] [facility] [place] [address] Kalee Mahmood MA Chronic systolic heart failure (CMS/HCC); Primary hypertension 06/26/2025 Telephone [facility] [address] [facility] [place] [address] Kalee Mahmood MA 06/26/2025 Refill [facility] [address] [facility] [place] [address] Adan Ortiz MD Persistent atrial fibrillation (CMS/HCC) 06/24/2025 4:30 AM EDT Ancillary Procedure [facility] [address] [place] [address] Pre-operative cardiovascular examination, ICD in place 06/24/2025 Orders Only [facility] [address] [place] [address] Mariusz Montoya MD 06/06/2025 Telephone [facility] [address] [facility] [place] [address] Marilin Aguayo MA 06/06/2025 Orders Only [facility] [address] [facility] [place] [address] Little Mckeon CNP 05/27/2025 9:30 AM EDT Office Visit [facility] [address] [facility] [place] [address] Mariusz Montoya MD Paroxysmal atrial fibrillation (CMS/HCC) (Primary Dx) 05/27/2025 Orders Only [facility] [address] [place] [address] Kalee Mahmood MA Paroxysmal atrial fibrillation (CMS/HCC) (Primary Dx) 05/26/2025 9:30 AM EDT Ancillary Procedure [facility] [address] [place] [address] Pre-operative cardiovascular examination, ICD in place 05/22/2025 Orders Only [facility] [address] [place] [address] Sarwat Lazo MD 05/22/2025 Orders Only [facility] [address] [place] [address] Mariusz Montoya MD 05/19/2025 12:30 PM EDT Ancillary Procedure [facility] [address] [place] [address] Pre-operative cardiovascular examination, ICD in place 04/23/2025 12:40 AM EDT Ancillary Procedure [facility] [address] [place] [address] Pre-operative cardiovascular examination, ICD in place 04/23/2025 Orders Only [facility] [address] [place] [address] Sarwat Lazo MD from Last 3 Months [...] Recorded Patient Health Questionnaire-2 Score 0 04/25/2023 [place] Safety & Environment Answer Date Rec orded [...] st Contact Info) Description 09/19/2025 Hospital Encounter [facility] Heart and Vascular Center Vascular Lab [address] [place] [address] Mariusz Montoya MD [address] [place] [address] Scheduled Procedures Name Priority Associated [...] this topic Medical Devices Implanted Type Area Cargo Bracer Device Identifier Shelf Expiration Date Model / Serial / Lot Rivacor 7 Hf-T Qp Implanted:Qty: 1 on 06/12/2023 by Mariusz Montoya MD at [facility] TECHNICAL ASSOCIATE-D ICD [employer] [id number] 08/15/2024 [id number] / [id number] / Plexa Promri S 60 - [id number] - [id number] Implanted:Qty: 1 on 06/12/2023 by Mariusz Montoya MD at [facility] Lead [employer] [id number] 01/13/2025 [id number] / [id number] / Lead,Ham,Qpearl L-85 - [id number] - [id number] Implanted:Qty: 1 on 06/12/2023 by Mariusz Montoya MD at [facility] Lead [employer] [id number] 12/13/2024 [id number] / [id number] / Procedures Procedure Name Priority Date/Time Associated [...] Ron Alejandre MD CV IMPLANTABLE CARDIAC DEVICE LA OCEDURES Final Result CPACS * Cardiac device check - Remote alert ICD (06/24/2025 12:00 AM EDT) Only the most recent of3 resultswithin the time period is included. Anatomical Region Laterality Modality Other 06/24/2025 us Mariusz Montoya MD CV IMPLANTABLE CARDIAC DEVICE LA OCEDURES Final Result * Cardiac device check - Remote ICD (05/22/2025 12:00 AM EDT) Anatomical Region Laterality Modality Other 05/22/2025 us Mariusz Montoya MD CV IMPLANTABLE CARDIAC DEVICE LA OCEDURES Final Result * (ABNORMAL) Hemoglobin A1c [...] Most Recently Relevant to Health Maintenance Insurance [facility] [address] [id number] MEDICARE [facility] Advance Directives * Full Code (Latest Code Status on File) Date Activated Date Inactivated Comments 06/12/2023 10:55 AM 06/12/2023 2:41 PM Care Teams Quality Control Analyst Relationship Specialty Start Date End Date Arnie Lund DO [address] [place] [address] PCP - General 06/07/22
--- OUTSIDE RECORDS SUMMARY | 2025-07-22 12:37 | XMS_ITS | Encounter Summary ---
Author Organization [facility] Address [address] [place] [address] Care Team Providers Care Winter Sports Manager Name Role Phone Arnie Lund DO Primary Care Provider [phone] Reason for Visit * Reason Comments Med Refill Encounter Details Date Type Department Care Team (Late st Contact Info) Description 01/04/2024 Refill [facility] [address] [place] [address] Adan Ortiz MD [address] [place] [address] Persistent atrial fibrillation (CMS/HCC) Social History Tobacco Use Types Packs/Day Years Used Date Smoking Tobacco: Former Cigarettes Q uit: 1982 Smokeless Tobacco: Never Alcohol Use Standard Drinks/Week Comments Yes 0 (1 standard drink = 0.6 oz pur e alcohol) OCCASIONAL PHQ-2 Answer Date Recorded Patient Health Questionnaire-2 Score 0 04/25/2023 [place] Safety & Environment Answer Date Rec orded [...] st Contact Info) Description 09/19/2025 Hospital Encounter [facility] Heart and Vascular Center Vascular Lab [address] [place] [address] Mariusz Montoya MD [address] [place] [address] Scheduled Procedures Name Priority Associated Diagnoses Date/Ti me Atrial Fib Ablation w/ PVI Paroxysmal atrial fibrillation (CMS/HCC) documented as of this encounter Visit Diagnoses Diagnosis Persistent atrial fibrillation (CMS/HCC) Atrial fibrillation documented in this encounter Care Teams Winter Sports Manager Relationship Specialty Start Date End Date Arnie Lund DO [address] [place] [address] [address] [place] [address] PCP - General 06/07/22 documented as of this encounter
--- OUTSIDE RECORDS SUMMARY | 2025-07-22 12:37 | XMS_ITS | Encounter Summary ---
Author Organization [facility] Address [address] [place] [address] Care Team Providers Care Echocardiography Radiology Technologist Name Role Phone Arnie Lund DO Primary Care Provider [phone] Encounter Details Date Type Department Care Team (Late st Contact Info) Description 04/23/2025 Orders Only [facility] Cardiology Clinic [address] [place] [address] Sarwat Lazo MD [address] [place] [address] Social History Tobacco Use Types Packs/Day Years Used Date Smoking Tobacco: Former Cigarettes Q uit: 1982 Smokeless Tobacco: Never Alcohol Use Standard Drinks/Week Comments Yes 0 (1 standard drink = 0.6 oz pur e alcohol) OCCASIONAL PHQ-2 Answer Date Recorded Patient Health Questionnaire-2 Score 0 04/25/2023 [place] Safety & Environment Answer Date Rec orded [...] st Contact Info) Description 09/19/2025 Hospital Encounter [facility] Heart and Vascular Center Vascular Lab [address] [place] [address] Mariusz Montoya MD [address] [place] [address] Scheduled Procedures Name Priority Associated Diagnoses [...] on filedocumented in this encounter Care Teams Echocardiography Radiology Technologist Relationship Specialty Start Date End Date Arnie Lund DO [address] [place] [address] [place] [address] PCP - General 06/07/22 documented as of this encounter
--- OUTSIDE RECORDS SUMMARY | 2025-07-22 12:37 | XMS_ITS | Encounter Summary ---
Author Organization [employer] tem Address [facility][id number] [address] [place] [address] Care Team Providers Care Warehouse Laborer Name Role Phone Arnie Lund DO Primary Care Provider [phone] Encounter Details Date Type Department Care Team (Late st Contact Info) Description 04/13/2023 Telephone [facility] [address] [place] [address] External, Scanning Provider Social History Tobacco Use [...] on filedocumented in this encounter Care Teams Warehouse Laborer Relationship Specialty Start Date End Date Arnie Lund DO PCP - General Internal Medicine 11/11/21 documented as of this encounter
--- OUTSIDE RECORDS SUMMARY | 2025-07-22 12:37 | XMS_ITS | Encounter Summary ---
Author Organization [facility] Address [address] [place] [address] Care Team Providers Care Mop Man Name Role Phone Arnie Lund DO Primary Care Provider [phone] Encounter Details Date Type Department Care Team (Late st Contact Info) Description 03/23/2025 Orders Only [facility] Cardiology Clinic [address] [place] [address] Sarwat Lazo MD [address] [place] [address] Social History Tobacco Use Types Packs/Day Years Used Date Smoking Tobacco: Former Cigarettes Q uit: 1982 Smokeless Tobacco: Never Alcohol Use Standard Drinks/Week Comments Yes 0 (1 standard drink = 0.6 oz pur e alcohol) OCCASIONAL PHQ-2 Answer Date Recorded Patient Health Questionnaire-2 Score 0 04/25/2023 [place] Safety & Environment Answer Date Rec orded [...] st Contact Info) Description 09/19/2025 Hospital Encounter [facility] Heart and Vascular Center Vascular Lab [address] [place] [address] Mariusz Montoya MD [address] [place] [address] Scheduled Procedures Name Priority Associated Diagnoses [...] on filedocumented in this encounter Care Teams Mop Man Relationship Specialty Start Date End Date Arnie Lund DO [address] [place] [address] PCP - General 06/07/22 documented as of this encounter
--- OUTSIDE RECORDS SUMMARY | 2025-07-22 12:37 | XMS_ITS | Encounter Summary ---
Author Organization [employer] tem Address [facility][id number] [address] [place] [address] Care Team Providers Care Front Desk Clerk Name Role Phone Kevon Arnie Bel HERRMANN Primary Care Provider [phone] Encounter Details Date Type Department Care Team (Late st Contact Info) Description 01/10/2025 Telephone [facility] [address] [facility] [address] [place] [address] Connie Dunham CMA Social History Tobacco Use [...] on filedocumented in this encounter Care Teams Front Desk Clerk Relationship Specialty Start Date End Date Arnie Lund DO PCP - General Internal Medicine 11/11/21 documented as of this encounter
--- OUTSIDE RECORDS SUMMARY | 2025-07-22 12:37 | XMS_ITS | Encounter Summary ---
Author Organization [employer] tem Address [facility]-[id number] [address] [place] [address] Care Team Providers Care Home Care Specialist Name Role Phone Kevon Arnie Bel HERRMANN Primary Care Provider [phone] Reason for Visit * Reason Onset Date Comments ER 07/18/2024 Encounter Details Date Type Department Care Team (Late st Contact Info) Description 07/18/2024 Telephone [facility] [address] [place] [address] Americo Shaw MD [address] [place], [place] [phone] ER Social History Tobacco Use Types Packs/Day [...] 07/18/2024 8:13 AM EDT Patient seen in [facility] 07/17/24 for dizziness, weakness, BP 73/50, 3.5 Creatinine. Please contact patient/spouse for recommendations. Patient is feeling much better this morning. * Telephone Encounter - Michelle Bejarano LPN - 07/18/2024 8:13 AM EDT Have we received any records from [facility]? If not can you call and get them please? documented in this encounter Plan of Treatment Not on file documented as of this encounter Visit Diagnoses Not on filedocumented in this encounter Care Teams Home Care Specialist Relationship Specialty Start Date End Date Arnie Lund DO PCP - General Internal Medicine 11/11/21 documented as of this encounter
--- OUTSIDE RECORDS SUMMARY | 2025-07-22 12:38 | XMS_ITS | Encounter Summary ---
Author Organization [facility] Address [address] [place] [address] Care Team Providers Care Medical Assistant Float Name Role Phone Arnie Lund DO Primary Care Provider [phone] Encounter Details Date Type Department Care Team (Late st Contact Info) Description 07/21/2025 Telephone [facility] [address] [place] [address] Kalee Mahmood MA Social History Tobacco Use Types Packs/Day Years [...] st Contact Info) Description 09/19/2025 Hospital Encounter [facility] Heart and Vascular Center Vascular Lab [address] [place] [address] Mariusz Montoya MD [address] [place] [address] Scheduled Procedures Name Priority Associated Diagnoses Date/Ti me Atrial Fib Ablation w/ PVI Paroxysmal atrial fibrillation (CMS/HCC) documented as of this encounter Visit Diagnoses Not on filedocumented in this encounter Care Teams Medical Assistant Float Relationship Specialty Start Date End Date Arnie Lund DO [address] [facility] [place] [address] PCP - General 06/07/22 documented as of this encounter
--- OUTSIDE RECORDS SUMMARY | 2025-07-22 12:38 | XMS_ITS | Encounter Summary ---
Author Organization [facility] Address [address] [place] [address] Care Team Providers Care Rehab Services Aide Name Role Phone Arnie Lund DO Primary Care Provider [phone] Arnie Lund DO Primary Care Provider [phone] Encounter Details Date Type Department Care Team (Late st Contact Info) Description 01/23/2023 Abstract [facility] [address] [place] [address] Marilin Bhardwaj, [facility] [address] [place] [address] Social History Tobacco Use Types Packs/Day Years [...] Procedure Visit [facility] [address] [place] [address] Kole Batista DPM [address] [place] [id number] documented as of this encounter Visit Diagnoses Not on filedocumented in this encounter Care Teams Rehab Services Aide Relationship Specialty Start Date End Date Arnie Lund DO PCP - General Internal Medicine 08/24/23 02/17/25 Arnie Lund DO [address] [place] [address] PCP - General Internal Medicine 02/18/25 documented as of this encounter
--- OUTSIDE RECORDS SUMMARY | 2025-07-22 12:38 | XMS_ITS | Encounter Summary ---
Author Organization [facility] Address [address] [place] [address] Care Team Providers Care Golf Course Architect Name Role Phone Arnie Lund DO Primary Care Provider [phone] Arnie Lund DO Primary Care Provider Encounter Details Date Type Department Care Team (Late st Contact Info) Description 03/07/2023 Abstract [facility] [address] [facility] [address] [place] [address] Kalia Sánchez MD [address] [facility] [address] [place] [address] Social History Tobacco Use Types [...] Procedure Visit [facility] [address] [place] [address] Kole Batista DPM [address] [place], [place] [address] documented as of this encounter Visit Diagnoses Not on filedocumented in this encounter Care Teams Golf Course Architect Relationship Specialty Start Date End Date Arnie Lund DO PCP - General Internal Medicine 08/24/23 02/17/25 Arnie Lund DO [address] [place] [phone] PCP - General Internal Medicine 02/18/25 documented as of this encounter
--- OUTSIDE RECORDS SUMMARY | 2025-07-22 12:38 | XMS_ITS | Encounter Summary ---
Author Organization [facility] Address [address] [place] [address] Care Team Providers Care Track Layer Head Name Role Phone Arnie Lund DO Primary Care Provider [phone] Arnie Lund DO Primary Care Provider [phone] Encounter Details Date Type Department Care Team (Late st Contact Info) Description 01/23/2023 Abstract [facility] [address] [place] [address] Marilin Bhardwaj, [facility] [address] [facility] [place] [address] Social History Tobacco Use Types Packs/Day Years [...] Procedure Visit [facility] [address] [place] [address] Kole Batista DPM [address] [place] [phone] documented as of this encounter Visit Diagnoses Not on filedocumented in this encounter Care Teams Track Layer Head Relationship Specialty Start Date End Date Arnie Lund DO PCP - General Internal Medicine 08/24/23 02/17/25 Arnie Lund DO [address] [place] [address] PCP - General Internal Medicine 02/18/25 documented as of this encounter
--- OUTSIDE RECORDS SUMMARY | 2025-07-22 12:38 | XMS_ITS | Encounter Summary ---
Author Organization [facility] Address [address] [place] [address] Care Team Providers Care Braided Rug Maker Name Role Phone Arnie Lund DO Primary Care Provider [phone] Arnie Lund DO Primary Care Provider [phone] Encounter Details Date Type Department Care Team (Late st Contact Info) Description 08/30/2023 External Result Encounter [facility] External Department Unsolicited Leigha Nelson, ARCHITECTURAL DESIGN PROFESSOR [address] [place] [address] Social History Tobacco Use Types Packs/Day Years [...] EST Procedure Visit [facility] [address] [facility] [place] [address] Kole Batista DPM [address] [place] [address] documented as of this encounter [...] Scott Jr., D.O.08/30/2023 1:10 PM Dictation Location: [facility]--08 Transcribed By: PWS 08/30/23 1310 Dictated By: Sotero Scott Jr, DO 08/30/23 1304 Signed By: <Electronically signed by Sotero Scott Jr, DO in OV> 08/30/23 1310 Narrative 09/01/2023 12:10 PM EST [facility] [place] [address] CT Scan Report Signed Patient: Nas Alamo MR#: [id number] [birth year] : 1940 Acct:[id number] Age/Sex: 83 / M ADM Date: 08/30/23 Loc: Room: Type: [facility] RCR Attending Dr: Chivo Keller II, DO Copies to: EDWARD Luke II, DO Ordering Provider: Leigha Nelson APRN Date of Service: 08/30/23 CT/CT chest wo con: surveillance ([id number]) CT/CT abdomen pelvis wo con: surveillance CT [...] Procedure Note Radiology, Radiologist, MD - 09/01/2023 [facility] [address] [place] [address] [place] [address] CT Scan Report Signed Patient: Nas Alamo DMR#: [id number] 24 : 2Acct:[id number] Age/Sex: 83 / MADM Date: 08/30/23 Loc: Room:Type: [facility] Attending Dr: Chivo Keller II DO Copies to: EDWARD Luke II, DO Ordering Provider: Leigha Nelson APRN Date of Service: 08/30/23 CT/CT chest wo con: surveillance ([id number]) CT/CT abdomen pelvis wo con: surveillance CT [...] Scott Jr., D.O.08/30/2023 1:10 PM Dictation Location: [place] [address] Transcribed By: [facility] 08/30/23 1310 Dictated By: Sotero Scott Jr, DO 08/30/23 1304 Signed By: <Electronically signed by Sotero Scott Jr, DO inOV> 08/30/23 1310 Leigha Aj Albinjose luisjimena ARCHITECTURAL DESIGN PROFESSOR IMG CT PROCEDURES Final Resul t documented in this encounter Visit Diagnoses Not on filedocumented in this encounter Care Teams Braided Rug Maker Relationship Specialty Start Date End Date Arnie Lund DO PCP - General Internal Medicine 08/24/23 02/17/25 Arnie Lund DO [address] [place] [phone] PCP - General Internal Medicine 02/18/25 documented as of this encounter
--- OUTSIDE RECORDS SUMMARY | 2025-07-22 12:38 | XMS_ITS | Encounter Summary ---
Author Organization [facility] Address [address] [place] [address] Care Team Providers Care Business Job Titles Name Role Phone Arnie Lund DO Primary Care Provider [phone] Arnie Lund DO Primary Care Provider [phone] Encounter Details Date Type Department Care Team (Late st Contact Info) Description 02/07/2023 Abstract [facility] [address] [place] [address] Marilin Bhardwaj, [facility] [address] [facility] [place] [address] Social History Tobacco Use Types Packs/Day Years [...] Procedure Visit [facility] [address] [place] [address] Kole Batista DPM [address] [place] [phone] documented as of this encounter Visit Diagnoses Not on filedocumented in this encounter Care Teams Business Job Titles Relationship Specialty Start Date End Date Arnie Lund DO PCP - General Internal Medicine 08/24/23 02/17/25 Arnie Lund DO [address] [place] [address] PCP - General Internal Medicine 02/18/25 documented as of this encounter
--- OUTSIDE RECORDS SUMMARY | 2025-07-22 12:38 | XMS_ITS | Encounter Summary ---
Author Organization [facility] Address [address] [place] [address] Care Team Providers Care Polisher Hand Name Role Phone Arnie Lund DO Primary Care Provider [phone] Encounter Details Date Type Department Care Team (Late st Contact Info) Description 02/20/2025 Orders Only [facility] and [facility] Center Cardiology Clinic [address] [place] [address] Mariusz Montoya MD [address] [place] [address] Social History Tobacco Use Types Packs/Day Years Used Date Smoking Tobacco: Former Cigarettes Q uit: 1982 Smokeless Tobacco: Never Alcohol Use Standard Drinks/Week Comments Yes 0 (1 standard drink = 0.6 oz pur e alcohol) OCCASIONAL PHQ-2 Answer Date Recorded Patient Health Questionnaire-2 Score 0 04/25/2023 [place] Safety & Environment Answer Date Rec orded [...] st Contact Info) Description 09/19/2025 Hospital Encounter [facility] Heart and Vascular Center Vascular Lab [address] [place] [address] Mariusz Montoya MD [address] [place] [address] Scheduled Procedures Name Priority Associated [...] Mariusz Montoya MD CV IMPLANTABLE CARDIAC DEVICE [place] OCEDURES Final Result documented in this encounter Visit Diagnoses Not on filedocumented in this encounter Care Teams Polisher Hand Relationship Specialty Start Date End Date Arnie Lund DO [address] [place] [address] [place] [phone] PCP - General 06/07/22 documented as of this encounter
--- OUTSIDE RECORDS SUMMARY | 2025-07-22 12:38 | XMS_ITS | Clinical Summary ---
Author Organization [facility] Healthcare Address [address] [place] [address] Care Team Providers Care Delivery Technician Name Role Phone KevonArnie Bel HERRMANN Primary Care Provider [phone] Allergies No known active allergies Medications Fluticasone-Ume [...] EDT Treatment [facility] [address] [facility] [address] [place] [address] Ronal Andrews, [place] Greater trochanteric bursitis of left hip (Primary Dx); History of total hip arthroplasty, right; Left hip pain 05/26/2025 10:15 AM EDT [facility] [address] [place] [address] Kole Batista DPM Onychomycosis (Primary Dx); Onychodystrophy; Diabetic polyneuropathy associated with type 2 diabetes mellitus (HCC) 05/26/2025 Bamboo flowsheet [facility] [address] [place] [address] Kole Batista DPM 05/26/2025 Travel 05/23/2025 10:30 AM EDT Treatment [facility] [address] [facility] [address] [place] [address] Ronal Andrews, PHARMACY ANALYST Greater trochanteric bursitis of left hip (Primary Dx); History of total hip arthroplasty, right; Left hip pain 05/23/2025 Bamboo flowsheet [facility] [address] [place] [address] Ronal Andrews, PHARMACY ANALYST 05/23/2025 Travel 05/22/2025 Travel 05/21/2025 10:00 AM EDT Treatment [facility] [address] [place] [address] Ronal Andrews, PHARMACY ANALYST Greater trochanteric bursitis of left hip (Primary Dx); History of total hip arthroplasty, right; Left hip pain 05/21/2025 Bamboo flowsheet [facility] [address] [place] [address] Ronal Andrews, PHARMACY ANALYST 05/21/2025 Travel 05/19/2025 10:30 AM EDT Treatment [facility] [address] [place] [address] Roxanne Sánchez, PHARMACY ANALYST Greater trochanteric bursitis of left hip (Primary Dx); History of total hip arthroplasty, right; Left hip pain 05/19/2025 Bamboo flowsheet [facility] [address] [place] [address] Roxanne Sánchez, PHARMACY ANALYST 05/19/2025 Travel 05/16/2025 10:30 AM EDT Treatment [facility] [address] [place] [address] Ronal Andrews, PHARMACY ANALYST Greater trochanteric bursitis of left hip (Primary Dx); History of total hip arthroplasty, right; Left hip pain 05/16/2025 Bamboo flowsheet [facility] [address] [place] [address] Ronal Andrews, PHARMACY ANALYST 05/16/2025 Travel 05/14/2025 12:00 PM EDT Treatment [facility] [address] [place] [address] Ronal Andrews, PHARMACY ANALYST Greater trochanteric bursitis of left hip (Primary Dx); History of total hip arthroplasty, right; Left hip pain 05/14/2025 Bamboo flowsheet [facility] [address] [place] [address] Ronal Andrews, PHARMACY ANALYST 05/14/2025 Travel 05/12/2025 10:30 AM EDT Treatment [facility] [address] [facility] [address] [place] [address] Kelbley, Roxanne, PHARMACY ANALYST Greater trochanteric bursitis of left hip (Primary Dx); History of total hip arthroplasty, right; Left hip pain 05/12/2025 Bamboo flowsheet [facility] [address] [facility] [address] [place] [address] Kelbley, Roxanne, PHARMACY ANALYST 05/12/2025 Travel 05/09/2025 12:30 PM EDT Treatment [facility] [address] [facility] [address] [place] [address] Kelbley, Roxanne, PHARMACY ANALYST Greater trochanteric bursitis of left hip (Primary Dx); History of total hip arthroplasty, right; Left hip pain 05/09/2025 Bamboo flowsheet [facility] [address] [place] [address] Kelbley, Roxanne, PHARMACY ANALYST 05/09/2025 Travel 05/07/2025 10:00 AM EDT Treatment [facility] [address] [place] [address] Kelbley, Roxanne, PHARMACY ANALYST Greater trochanteric bursitis of left hip (Primary Dx); History of total hip arthroplasty, right; Left hip pain 05/07/2025 Bamboo flowsheet [facility] [address] [facility] [address] [place] [address] Nikkie Sánchezissa, PHARMACY ANALYST 05/07/2025 Travel 05/05/2025 12:30 PM EDT Treatment [facility] [address] [place] [address] Nikkie Sánchezissa, PHARMACY ANALYST Greater trochanteric bursitis of left hip (Primary Dx); History of total hip arthroplasty, right; Left hip pain 05/05/2025 Bamboo flowsheet [facility] [address] [place] [address] Nikkie Sánchezissa, PHARMACY ANALYST 05/05/2025 Travel 2025 10:30 AM EDT Treatment [facility] [address] [place] [address] Nikkie Sánchezissa, PHARMACY ANALYST Greater trochanteric bursitis of left hip (Primary Dx); History of total hip arthroplasty, right; Left hip pain 2025 Bamboo flowsheet [facility] [address] [place] [address] KelNikkie carrilloissa, PHARMACY ANALYST 2025 Travel 04/30/2025 10:00 AM EDT Treatment [facility] [address] [place] [address] Ronal Andrews, PHARMACY ANALYST Greater trochanteric bursitis of left hip (Primary Dx); History of total hip arthroplasty, right; Left hip pain 04/30/2025 Bamboo flowsheet [facility] [address] [place] [address] Ronal Andrews, PHARMACY ANALYST 04/30/2025 Travel 04/28/2025 10:30 AM EDT Treatment [facility] [address] [place] [address] Ronal Andrews, PHARMACY ANALYST Greater trochanteric bursitis of left hip (Primary Dx); History of total hip arthroplasty, right; Left hip pain 04/28/2025 Bamboo flowsheet [facility] [address] [place] [address] Jamaljagruti Ronal, PHARMACY ANALYST 04/28/2025 Travel 04/25/2025 10:30 AM EDT Treatment [facility] [address] [place] [address] Daryrl Ronal, PHARMACY ANALYST Greater trochanteric bursitis of left hip (Primary Dx); History of total hip arthroplasty, right; Left hip pain 04/25/2025 Bamboo flowsheet [facility] [address] [place] [address] Darryl Ronal, PHARMACY ANALYST 04/25/2025 Travel 04/23/2025 12:30 PM EDT Treatment [facility] [address] [place] [address] Roxnane Sánchez, PHARMACY ANALYST Greater trochanteric bursitis of left hip (Primary Dx); History of total hip arthroplasty, right; Left hip pain 04/23/2025 Bamboo flowsheet [facility] [address] [place] [address] Roxanne Sánchez, PHARMACY ANALYST 04/23/2025 Travel 04/21/2025 12:00 PM EDT Treatment [facility] [address] [place] [address] Roxanne Sánchez, PHARMACY ANALYST Greater trochanteric bursitis of left hip (Primary Dx); History of total hip arthroplasty, right; Left hip pain 04/21/2025 Bamboo flowsheet [facility] [address] [facility] [address] [place] [address] Roxanne Sánchez, PHARMACY ANALYST 04/21/2025 Travel from Last 3 Months Immunizations [...] EST Procedure Visit [facility] [address] [place] [address] Kole Batista, DPM [address] [place], [place] [id number] Health Maintenance Due Date Last Done Comments [...] (05/30/2025 10:59 AM EDT) Pathologist [facility] ERYTHROPOETIN (EPO), SERUM 22.0 2.6 - 18.5 m[iU]/mL 06/02/2025 6:08 PM EDT [facility] Comment: [employer] DxI 800 Immunoassay System Values obtained with different assay methods or kits cannot be used interchangeably. Results cannot be interpreted as absolute evidence of the presence or absence of malignant disease. Performed at: [facility] [employer] [id number] [employer] Professor: Nathan Munoz PhD, Phone: [phone] Other Topography unknown / Unknown 05/30/2025 10:59 AM EDT 05/30/2025 10:59 AM EDT us Chivo Keller DO LAB BLOOD ORDERABLES Radha l Result [facility] [address] [place] [address], * (ABNORMAL) CARCINOEMBRYONIC ANTIGEN (05/30/2025 10:59 AM EDT) Pathologist [facility] CARCINOEMBRYONIC ANTIGEN 3.4(H) 0.0 - 3.0 ng/mL 05/30/2025 12:05 PM EDT [facility] Comment: Serial tumor marker results determined by assays using different manufacturers or methods may not be comparable. [facility] eyeglass assembler and method: JANICE UNICEL DXI, 2 SITE IMMUNOENZYMATIC S ANDWICH ASSAY. Other Topography unknown / Unknown 05/30/2025 10:59 AM EDT 05/30/2025 10:59 AM EDT Chivo Lynda Keller DO LAB BLOOD ORDERABLES Radha l Result Performing Organization Address [facility] Co de Phone Number [facility] [address] [place] [address], [facility] [address] [place] [address] * VIT. B12/FOLATE PROFILE (05/30/2025 10:59 AM EDT) VITAMIN B12 433 180 - 914 pg/mL 05/30/2025 12:17 PM EDT [facility] FOLATE >49.6 >5.9 ng/mL 05/30/2025 1:07 PM EDT [facility] Comment: Folate reference range: >5.9 ng/ml The WHO technical consultation on folate and vitamin b12 deficiencies has determined that folate concentrations less than 4 ng/ml are considered deficient. Other Topography unknown / Unknown 05/30/2025 10:59 AM EDT 05/30/2025 10:59 AM EDT Chivo Keller DO LAB BLOOD ORDERABLES Radha l Result Performing Organization Address [facility] Co de Phone Number [address] [address], [facility] [address] [place] [address] * (ABNORMAL) CBC auto differential (05/30/2025 10:59 AM EDT) WBC 7.2 4.1 - 10.5 [CFU]/mL 05/30/2025 11:33 AM EDT [facility] UNCORRECTED WHITE BLOOD COUNT 7.2 4.1 - 10.5 10*3/uL 05/30/2025 11:33 AM EDT [facility] RBC 3.93 3.90 - 5.60 10*6/uL 05/30/2025 11:33 AM EDT [facility] HEMOGLOBIN 12.5(L) 13.0 - 17.0 g/dL 05/30/2025 11:33 AM EDT [facility] HEMATOCRIT 37.5(L) 38.8 - 50.0 % 05/30/2025 11:33 AM EDT [facility] MCV 95.5 83.5 - 101 fL 05/30/2025 11:33 AM EDT [facility] MCH 31.7 27.5 - 35.2 pg 05/30/2025 11:33 AM EDT [facility] MCHC 33.2 32.5 - 35.6 g/dL 05/30/2025 11:33 AM EDT [facility] RED CELL DISTRIBUTION WIDTH, RDW 14.7 12.0 - 14.8 % 05/30/2025 11:33 AM EDT [facility] PLATELET COUNT 205 150 - 450 10*3/uL 05/30/2025 11:33 AM EDT [facility] MEAN PLATELET VOLUME, MPV 7.3 6.6 - 10.1 fL 05/30/2025 11:33 AM EDT [facility] NEUTROPHILS, % 67.8 . % 05/30/2025 11:33 AM EDT [facility] LYMPHOCYTES, % 19.9 . % 05/30/2025 11:33 AM EDT [facility] MONOCYTE/MACROPHA GE, % 9.7 . % 05/30/2025 11:33 AM EDT [facility] EOSINOPHILS, % 2.2 . % 05/30/2025 11:33 AM EDT [facility] BASOPHILS, % 0.4 . % 05/30/2025 11:33 AM EDT [facility] NRBC 0.0 0 - 0.5 /100{WBC} 05/30/2025 11:33 AM EDT [facility] NEUTROPHILS 4.9 1.8 - 7.7 10*3/uL 05/30/2025 11:33 AM EDT [facility] LYMPHOCYTES 1.4 1.00 - 4.8 10*3/uL 05/30/2025 11:33 AM EDT [facility] MONOCYTES 0.7 0.0 - 0.8 10*3/uL 05/30/2025 11:33 AM EDT [facility] EOSINOPHILS 0.2 0.0 - 0.45 10*3/uL 05/30/2025 11:33 AM EDT [facility] BASOPHILS 0.0 0.0 - 0.2 10*3/uL 05/30/2025 11:33 AM EDT [facility] Blood (Blood) 05/30/2025 10: 59 AM EDT 05/30/2025 10:59 AM EDT Chivo Keller DO LAB BLOOD ORDERABLES Radha l Result Performing Organization Address City/[facility] Co de Phone Number [address] [address], [facility] [address] [place] [address] * (ABNORMAL) Iron and TIBC (05/30/2025 10:59 AM EDT) IRON 76 50 - 212 ug/dL 05/30/2025 11:51 AM EDT [facility] TOTAL IRON BINDING CAPACITY 270 255 - 450 ug/dL 05/30/2025 11:51 AM EDT [facility] % IRON SATURATION 28.1 20 - 50 % 05/30/2025 11:51 AM EDT [facility] TRANSFERRIN 193(L) 203 - 362 mg/dL 05/30/2025 11:51 AM EDT [facility] Other Topography unknown / Unknown 05/30/2025 10:59 AM EDT 05/30/2025 10:59 AM EDT Chivo Keller DO LAB BLOOD ORDERABLES Radha l Result [address] [address], [facility] [address] [place] [address] * Ferritin (05/30/2025 10:59 AM EDT) FERRITIN 236.2 23.9 - 336.2 ng/mL 05/30/2025 12:13 PM EDT [facility] Other Topography unknown / Unknown 05/30/2025 10:59 AM EDT 05/30/2025 10:59 AM EDT Chivo Keller DO LAB BLOOD ORDERABLES Radha kasia Result [facility] [address] [place] [address], [facility] [address] [place] [address] * (ABNORMAL) Comprehensive metabolic panel (05/30/2025 10:59 AM EDT) Pathologist [facility] Glucose 106(H) 70 - 100 mg/dL 05/30/2025 11:51 AM EDT [facility] Comment: Random Glucose Reference Range is dependent on time and content of last meal. Glucose of more than 200 mg/dL in a nonstressed, ambulatory subject supports the diagnosis of Diabetes Mellitus. ADA recommended reference range BUN 44(H) 7 - 25 mg/dL 05/30/2025 11:51 AM EDT [facility] CREATININE 2.26(H) 0.70 - 1.30 mg/dL 05/30/2025 11:51 AM EDT [facility] ESTIMATED GFR 28.071 05/30/2025 11:51 AM EDT [facility] Sodium 141 136 - 145 mmol/L 05/30/2025 11:51 AM EDT [facility] Potassium, Bld 4.2 3.5 - 5.1 mmol/L 05/30/2025 11:51 AM EDT [facility] Chloride 101 98 - 107 mmol/L 05/30/2025 11:51 AM EDT [facility] Carbon Dioxide 34.0(H) 21.0 - 31.0 mmol/L 05/30/2025 11:51 AM EDT [facility] Anion Gap 10.2 6.0 - 15.0 05/30/2025 [facility] Calcium 8.6 8.6 - 10.3 mg/dL 05/30/2025 11:51 AM EDT [facility] TOTAL PROTEIN 6.5 6.4 - 8.9 g/dL 05/30/2025 11:51 AM EDT [facility] ALBUMIN LEVEL 4.2 3.5 - 5.7 g/dL 05/30/2025 11:51 AM EDT [facility] GLOBULIN 2.3 g/dL 05/30/2025 11:51 AM EDT [facility] ALBUMIN/GLOBULIN RATIO 1.8 05/30/2025 11:51 AM EDT [facility] BILIRUBIN,TOTAL 0.6 0.3 - 1.0 mg/dL 05/30/2025 11:51 AM EDT [facility] ASPARTATE AMINO TRANSFERASE 17 13 - 39 U/L 05/30/2025 11:51 AM EDT [facility] ALANINE AMINOTRANSFERASE 15 7 - 52 U/L 05/30/2025 11:51 AM EDT [facility] ALKALINE PHOSPHATASE 124(H) 34 - 104 U/L 05/30/2025 11:51 AM EDT [facility] CREATININE CLR [facility] 26.38 05/30/2025 11:51 AM EDT [facility] Other Topography unknown / Unknown 05/30/2025 10:59 AM EDT 05/30/2025 10:59 AM EDT Chivo Keller DO LAB BLOOD ORDERABLES Radha l Result Performing Organization Address City/State/[facility] de Phone Number [facility] [address] [place] [address], [facility] [address] [place] [address] from Last 3 Months Insurance MEDICARE AAR Care Teams Delivery Technician Relationship Specialty Start Date End Date Arnie Lund DO [address] [place] [address] PCP - General Internal Medicine 02/18/25
--- OUTSIDE RECORDS SUMMARY | 2025-07-22 12:38 | XMS_ITS | Clinical Summary ---
Author Organization [employer] Address [id number] [address] [place] [address] Care Team Providers Care Technology Professional Name Role Phone Kevon Arnie Bel HERRMANN Primary Care Provider [phone] Allergies Active Allergy Reactions Criticality Noted Date Comments Ddcuftm-Xek-Fmw Reductase Inhibitors 11/03/2021 Medications allopurinoL (ZYLOPRIM) 100 [...] Medical Devices Not on file Insurance MEDICARE [facility] Care Teams Technology Professional Relationship Specialty Start Date End Date Arnie Lund DO PCP - General Internal Medicine 11/11/21
--- OUTSIDE RECORDS SUMMARY | 2025-07-22 12:38 | XMS_ITS | Encounter Summary ---
Author Organization [facility] Address [address] [place] [address] Care Team Providers Care Dyer And Washer Name Role Phone Arnie Lund DO Primary Care Provider [phone] Encounter Details Date Type Department Care Team (Late st Contact Info) Description 02/24/2025 External Result Encounter [facility] External Department Unsolicited Chivo Keller DO [address] [place] [address] Social History Tobacco Use Types Packs/Day Years [...] Procedure [facility] [address] [place] [address] Kole Batista, DPCanelo [address] [place] [address] documented as of this encounter Procedures Procedure [...] Jr., D.O. 02/24/2025 11:32 AM Dictation Location: [place] [address] Transcribed By: [facility] 02/24/25 1132 Dictated By: Sotero Scott Jr, DO 02/24/25 1125 Signed By: <Electronically signed by Sotero Scott Jr, DO in OV> 02/24/25 1132 Narrative 02/24/2025 11:34 AM EDT [facility] [place] [address] CT Scan Report Signed Patient: Nas Alamo MR#: [id number] 24 : 1940 Acct:[id number] Age/Sex: 84 / M ADM Date: 02/24/25 Loc: Room: Type: [facility] RCR Attending Dr: Chivo Keller II DO Copies to: Chivo Keller II, DO Ordering Provider: Chivo Keller II, DO Date of Service: 02/24/25 CT/CT chest wo con: D50.9 - Iron deficiency anemia, unspecified ([id number]) CT/CT abdomen pelvis wo con: D50.9 - [...] Note Sotero Scott Jr., DO - 02/24/2025 [facility] Main [place] [address] [place] [address] CT Scan Report Signed Patient: Nas Alamo DMR#: [id number] [birth year] : 2Acct:[id number] Age/Sex: 84 / MADM Date: 02/24/25 Loc: Room:Type: [facility] RCR Attending Dr: Chivo Keller II DO Copies to: Chivo Keller II, DO Ordering Provider: Chivo Keller II, DO Date of Service: 02/24/25 CT/CT chest wo con: D50.9 - Iron deficiencyanemia, unspecified ([id number]) CT/CT abdomen pelvis wo con: D50.9 - [...] Jr., D.OKeo 02/24/2025 11:32 AM Dictation Location: [place] [address] Transcribed By: [facility] 02/24/25 1132 Dictated By: Sotero Scott Jr, DO 02/24/25 1125 Signed By: <Electronically signed by Sotero Scott Jr, DO inOV> 02/24/25 1132 Chivo Keller DO IMG CT PROCEDURES Final R esult documented in this encounter Visit Diagnoses Not on filedocumented in this encounter Care Teams Dyer And Washer Relationship Specialty Start Date End Date Arnie Lund DO [address] [place] [address] PCP - General Internal Medicine 02/18/25 documented as of this encounter
--- OUTSIDE RECORDS SUMMARY | 2025-07-22 12:38 | XMS_ITS | Encounter Summary ---
Author Organization [facility] Address [address] [place] [address] Care Team Providers Care Commercial Baking Teacher Name Role Phone Arnie Lund DO Primary Care Provider [phone] Arnie Lund DO Primary Care Provider [phone] Encounter Details Date Type Department Care Team (Late st Contact Info) Description 02/07/2023 Abstract [facility] [address] [place] [address] Marilin Bhardwaj, [facility] [address] [facility] [place] [address] Social History Tobacco Use Types Packs/Day Years [...] Procedure Visit [facility] [address] [place] [address] Kole Batista DPM [address] [place] [id number] documented as of this encounter Visit Diagnoses Not on filedocumented in this encounter Care Teams Commercial Baking Teacher Relationship Specialty Start Date End Date Arnie Lund DO PCP - General Internal Medicine 08/24/23 02/17/25 Arnie Lund DO [address] [place] [address] PCP - General Internal Medicine 02/18/25 documented as of this encounter
--- OUTSIDE RECORDS SUMMARY | 2025-07-22 12:38 | XMS_ITS | Clinical Summary ---
Author Organization [facility] Address [address] [place] [address] Phone Care Team Providers Care Stippler Name Role Phone Unavailable Primary Care Provider [...]
--- OUTSIDE RECORDS SUMMARY | 2025-07-22 12:38 | XMS_ITS | Encounter Summary ---
Author Organization [facility] Address [address] [place] [address] Care Team Providers Care Track Helper Name Role Phone Arnie Lund DO Primary Care Provider [phone] Encounter Details Date Type Department Care Team (Late st Contact Info) Description 02/20/2025 Orders Only [facility] [address] [place] [address] Sarwat Lazo MD [address] [place] [address] Social History Tobacco Use Types Packs/Day Years Used Date Smoking Tobacco: Former Cigarettes Q uit: 1982 Smokeless Tobacco: Never Alcohol Use Standard Drinks/Week Comments Yes 0 (1 standard drink = 0.6 oz pur e alcohol) OCCASIONAL PHQ-2 Answer Date Recorded Patient Health Questionnaire-2 Score 0 04/25/2023 [place] Safety & Environment Answer Date Rec orded [...] st Contact Info) Description 09/19/2025 Hospital Encounter [facility] Vascular Lab [address] [place] [address] Mariusz Montoya MD [address] [place] [address] Scheduled Procedures Name Priority Associated Diagnoses [...] filedocumented in this encounter Care Teams Track Helper Relationship Specialty Start Date End Date Arnie Lund DO [address] [place] [address] [place] [phone] PCP - General 06/07/22 documented as of this encounter
--- OUTSIDE RECORDS SUMMARY | 2025-07-22 12:38 | XMS_ITS | Encounter Summary ---
Author Organization [facility] Address [address] [place] [address] Care Team Providers Care Flow Worker Name Role Phone Arnie Lund DO Primary Care Provider [phone] Arnie Lund DO Primary Care Provider [phone] Encounter Details Date Type Department Care Team (Late st Contact Info) Description 02/22/2024 External Result Encounter [facility] Unsolicited Chivo Keller, DO [address] [place] [address] Social History Tobacco Use Types Packs/Day Years [...] [facility] [address] [place] [phone] Kole Batista DPM [address] [place], [place] [id number] documented as of this encounter Procedures Procedure [...] Gerard Bernard M.D.02/22/2024 2:03 PM Dictation Location: [place] [address] Transcribed By: [facility] 02/22/24 1403 Dictated By: Gerard Bernard II, MD 02/22/24 1351 Signed By: <Electronically signed by Gerard Bernard II, MD in OV> 02/22/24 1403 Narrative 02/22/2024 2:05 PM EDT [facility] [place] [address] CT Scan Report Signed Patient: Nas Alamo MR#: [id number] [birth year] : 1940 Acct:[id number] Age/Sex: 83 / M ADM Date: 02/22/24 Loc: Room: Type: [facility] Attending Dr: Chivo Keller II DO Copies to: Chivo Keller II, DO Ordering Provider: Chivo Keller II, DO Date of Service: 02/22/24 CT/CT abdomen pelvis wo con: surveilance ([id number]) CT/CT chest wo con: surveilance CT chest [...] con Procedure Note Radiology, Radiologist, - 02/22/2024 [facility] [place] [address] [place] [address] CT Scan Report Signed Patient: Nas Alamo DMR#: [id number] [birth year] : 2Acct:[id number] Age/Sex: 83 / MADM Date: 02/22/24 Loc: XT Room:[facility] Attending Dr: Chivo Keller II DO Copies to: Chivo Keller II, DO Ordering Provider: Chivo Keller II, DO Date of Service: 02/22/24 CT/CT abdomen pelvis wo con: surveilance ([id number]) CT/CT chest wo con: surveilance CT chest [...] Gerard Bernard M.D.02/22/2024 2:03 PM Dictation Location: [place] [address] Transcribed By: [facility] 02/22/24 1403 Dictated By: Gerard Bernard II, MD 02/22/24 1351 Signed By: <Electronically signed by Gerard Bernard II, MD inOV> 02/22/24 1403 Chivo Keller DO IMG CT PROCEDURES Final R esult documented in this encounter Visit Diagnoses Not on filedocumented in this encounter Care Teams Flow Worker Relationship Specialty Start Date End Date Arnie Lund DO PCP - General Internal Medicine 08/24/23 02/17/25 Arnie Lund DO [facility] [place] [phone] PCP - General Internal Medicine 02/18/25 documented as of this encounter
[2025-07-22 12:57] LABS: Hematocrit 34.3 % (42.0-54.0); Hemoglobin 11.3 g/dL (14.0-18.0); Immature Granulocytes Abs Auto 0.03 10^3/uL (0.00-0.03); Immature Granulocytes Pct Auto 0.5 % (0.0-0.5); Lymphocytes Absolute Auto 1.6 10^3/uL (1.2-3.8); Mean Corpuscular HGB Conc 32.9 g/dL (29.9-35.2); Mean Corpuscular Hemoglobin 32.4 pg (25.9-34.0); Mean Corpuscular Volume 98.3 fL (80.0-94.0); Platelet Count 174 10^3/uL (150-450); Red Blood Count 3.49 10^6/uL (4.70-6.10); White Blood Count 6.7 10^3/uL (4.0-11.0)
== END 2025-07-22 12:33 | disposition home or self-care (01) ==
LOC: LAB 12:35
PROVIDERS: PCP Internal Medicine; Visit Provider Internal Medicine
DX: D64.9 Anemia, unspecified (principal)
CPT/HCPCS: 36415; 85025

== ENCOUNTER 2025-08-13 10:02 | Outpatient (OUT) | payer MEDICARE, SELFPAY ==
--- OUTSIDE RECORDS SUMMARY | 2025-08-13 10:04 | XMS_ITS ---
Author Organization [facility] Address [address] [place] [address] Care Team Providers Care Cognos Report Developer Name Role Phone Arnie Lund DO Primary Care Provider [phone] Active Problems ProblemNoted DateDiagnosed ZqhaHhdipjysegw34/23/2024rimary esqvjfbs60/23/2024 Chronic bronchitis, xuwolx1003/29/2024hronic venous lbdhwibhqxudm45/14/2024 Ltopficvbtwz15/14/2024Hyperlipidemia type II03/29/2024Hypothyroidism due to sjorobecsp26/14/2024Impaired mobility and activities of daily lenhtf5503/29/2024 Iron deficiency fvejpv2603/29/2024olon lbdnbn0603/29/2024Mucopurulent chronic unwhbwiimf53/14/2024Obstructive sleep apnea03/29/20246006Ntmuikiqv07/14/2024-fib 03/29/2024soas abscess, right03/29/2024ulmonary ppedvnynldxc17/14/2024 Pwbwycbixyjcum47/14/2024Type 2 diabetes mellitus with qetmcxmawoenv12/14/2024 Stage 4 chronic kidney ywalgig6809/22/2023Statin fsybplchlxp87/14/2023ilated fbonnxlcqwrqxk82/20/2023 Overview (04/04/2023): Added automatically from request for surgery [id number] Stage 3 chronic kidney ugnpemv48/25/2022Chronic systolic heart lyjqbol9406/09/2022 Assessment & Plan (09/20/2022 5:21 PM EST): -HFrEF -NHYA III -he appears euvolemic on exam despite weight gain, this could be attributed to correcting thyroid issues -He has no LE edema, JVD -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 carbon capture power plant operator regarding kidney function -he will need 3 month follow up with moukarbel -continue GDMT: norvasc, aspirin, bumex, hydralazine, isosorbide, toprolXL Cpggndvgjjfx94/25/2022Edema of lower ryesfosgw15/25/2022 Assessment & Plan (09/20/2022 5:23 PM EST): -this must be improved as he does not exhibit any LE edema Hypertensive vxmhawku19/25/2022 Assessment & Plan (09/20/2022 5:22 PM EST): -he is controlled today -will continue to re-evaluate on follow up pending nephrology recommendations Left ventricular systolic idrphrohtxy01/25/0963Djygnxtrdlv63/25/2022OPD (chronic obstructive pulmonary disease)2Osteomyelitis of vertebra 8207Izqvtblygk25/01/5695Jkuuwtxtqctauq88/01/2021Type 2 diabetes mellitus 06/16/2021aroxysmal atrial oifcgbq9308/16/2019 Current Treatment and Therapy Plans No current plan information found. Past Treatment and Therapy Plans No past plan information found. Lifetime Dose Tracking * ChemicalLifetime DoseAutomatic EntryManual EntryFluoro Time7.9 minutes0 minutes7.9 minutesAir Kerma62 mGy0 mGy62 mGy Resolved Problems ProblemNoted DateDiagnosed DateResolved JqljHjmbjbcnsgoj84/01/202107/
--- OUTSIDE RECORDS SUMMARY | 2025-08-13 10:05 | XMS_ITS | Encounter Summary ---
Author Organization [facility] Address [address] [place] [address] Care Team Providers Care Cnc Supervisor Name Role Phone Arnie Lund DO Primary Care Provider [phone] Encounter Details DateTypeDepartmentCare Team (Latest Contact Info)Fnldpjmtkwo86/10/2025Orders Only [facility] [address] [place] [address] Sarwat Lazo MD [address] [place] [address] Social History Tobacco UseTypesPacks/DayYears UsedDateSmoking Tobacco: FormerCigarettesQuit: 1982Smokeless Tobacco: NeverAlcohol UseStandard Drinks/WeekCommentsYes0 (1 standard drink = 0.6 oz pure alcohol)OCCASIONALPHQ-2AnswerDate RecordedPatient Health Questionnaire-2 Rixac750UT Safety & EnvironmentAnswerDate RecordedFear of Current or Ex-PartnerNot on file12/07/2023Emotionally AbusedNot on file4Physically AbusedNot on 12/07/2023Sexually AbusedNot on 12/07/2023hysically or Sexually AbusedNot on file12/07/2023Sex and Gender InformationValueDate RecordedSex Assigned at HvsbqDpym51/28/2023 6:32 AM EDT Legal QidBcls4504/13/2022 11:44 PM EDTGender NfscrpuhVgrk21/28/2023 6:32 AM EDT Sexual OrientationHeterosexual or Ztkabrec21/28/2023 6:32 AM EDTdocumented as of this encounter Plan of Treatment DateTypeDepartmentCare Team (Latest Contact Info)Lnxerooivgu55/05/2025Hospital Encounter [facility] V[facility] [address] [place] [address] Mariusz Montoya MD [address] [place] [address] NamePriorityAssociated DiagnosesDate/TimeAtrial Fib Ablation w/ PVI Paroxysmal atrial fibrillation (CMS/HCC) documented as of this encounter Procedures Procedure NamePriorityDate/TimeAssociated DiagnosisCommentsCARDIAC DEVICE CHECK - REMOTE - ZHKGivltuw64/10/2025 12:00 AM EDTdocumented in this encounter Results * Cardiac device check - Remote ICD (07/25/2025 12:00 AM EDT)Anatomical Region LateralityModalityOtherSpecimen (Source)Anatomical Location / Laterality Collection Method / VolumeCollection TimeReceived Time07/25/2025 Narrative Authorizing ProviderResult TypeResult StatusSastanley Lazo MDC IMPLANTABLE CARDIAC DEVICE PROCEDURESFinal Result documented in this encounter Visit Diagnoses Not on filedocumented in this encounter Care Teams Team MemberRelationshipSpecialtyStart DateEnd Date Arnie Lund DO [address] [place] [address] [place] [phone] PCP - General06/07/22documented as of this encounter
--- OUTSIDE RECORDS SUMMARY | 2025-08-13 10:05 | XMS_ITS | Clinical Summary ---
Author Organization [employer] tem Address [id number] [place] [address] Care Team Providers Care Therapy Teacher Name Role Phone Arnie Lund Primary Care Provider [phone] Allergies Active AllergyReactionsCriticalityNoted EbrxIzzctvmvHdjoquz-Sbn-Ovb Reductase Ztsmpklzgq64/19/2022 Medications MedicationSigDispense QuantityRefillsLast FilledStart DateEnd DateStatus allopurinoL (ZYLOPRIM) 100 mg tablet Take 1 tablet (100 mg total) by mouth in the morning.Active amLODIPine (NORVASC) 10 mg tablet Take 1 tablet (10 mg total) by mouth in the morning.Active hydrALAZINE (APRESOLINE) 100 mg tablet Take 1 tablet (100 mg total) by mouth 3 (three) times a day.Active metoprolol succinate XL (TOPROL-XL) 50 mg 24 hr tablet Take 2 tablets (100 mg total) by mouth in the morning.Active potassium chloride (K-TAB,KLOR-CON) 10 MEQ CR tablet Take 1 tablet (10 mEq total) by mouth in the morning.Active cholecalciferol, vitamin D3, 5,000 units tablet Take 1 tablet (5,000 Units total) by mouth in the morning.Active isosorbide dinitrate (ISORDIL) 10 mg tablet Take 1 tablet (10 mg total) by mouth 3 (three) times a day with meals.Active apixaban (ELIQUIS) 5 mg tablet Take 1 tablet (5 mg total) by mouth in the morning and 1 tablet (5 mg total) before bedtime.3Active TRELEGY ELLIPTA 200-62.5-25 mcg blister with device Inhale 1 puff in the morning.3Active niacin (VITAMIN B3) 500 mg tablet Take 1 tablet (500 mg total) by mouth daily with breakfast.Active methIMAzole (TAPAZOLE) 10 mg tablet Take 0.5 tablets (5 mg total) by mouth every other day.02/08/2024ctive losartan (COZAAR) 25 mg tablet Take 1 tablet (25 mg total) by mouth in the morning. 90 tablet ctive furosemide (LASIX) 80 mg tablet Take 1 tablet (80 mg total) by mouth daily. 90 tablet ctive Active Problems ProblemNoted DateDiagnosed DateChronic kidney disease, stage 4 (severe) 2Diabetes mellitus type 2, albcdrutej91/19/2251Lowfajyzorki25/19/2022 Chronic systolic heart ahisjnt59/19/2022COPD (chronic obstructive pulmonary disease)11/03/2021 Family History Medical HistoryRelationNameCommentsDiabetesFatherHypertensionFatherDiabetes MotherHypertensionMotherRelationNameStatusCommentsFatherMother Social History Tobacco UseTypesPacks/DayYears UsedDateSmoking Tobacco: FormerSmokeless Tobacco: Never Tobacco Cessation:Counseling Given: Not Answered Alcohol UseStandard Drinks/WeekCommentsNot Currently0 (1 standard drink = 0.6 oz pure alcohol)ChildcareAnswerDate GhmyuogzFwmjrzektQxxuilr39/12/2019Employment AnswerDate GbcdpyrtMafniccbnsYdjeonf70/12/2019Purpose - LifeAnswerDate Recorded Purpose and direction in pghyUtxjrtp76/11/2021ex and Gender InformationValue Date RecordedSex Assigned at BirthNot on fileLegal BakFzoh1105/21/2015 11:38 AM EDTGender IdentityNot on fileSexual OrientationNot on file Last Filed Vital Signs Vital SignReadingTime TakenCommentsBlood Owwjxnft996/8010 10:27 AM EDT Wqaaz1832 10:27 AM YBEWhvghzbjvuq31.7 ??C (98.1 ??F)11/11/2021 10:01 AM ESTRespiratory Rate--Oxygen Zzxchuuhxy74%10/05/2023 4:11 PM ESTInhaled Oxygen Concentration--Mtlqtv83.2 kg (218 lb 12.8 oz)08/08/2024 10:25 AM JPPKexlep729.3 cm (5' 11 )08/08/2024 10:25 AM EDTBody Mass Index30.5208/08/2024 10:25 AM EDT Plan of Treatment Health MaintenanceDue DateLast DoneCommentsDepression Siwgeuami99/18/1954 DTaP,Tdap and Td Vaccines (1 - Tdap)1961Zoster (Shingles) Vaccine (1 of 2) 1992Fall Risk Dqgeznlxq50/18/2007COVID-19 Vaccine (2023- season) , 07/20/2023, 07/10/2022, Additional history existsInfluenza Ebyxkgw00/, 07/11/2023, 07/04/2022, Additional history exists Tobacco Ixqizkrhq40 Medical Devices Not on file Insurance Care Teams Team MemberRelationshipSpecialtyStart DateEnd Date Arnie Lund DO PCP - GeneralInternal Medicine11/11/21
--- OUTSIDE RECORDS SUMMARY | 2025-08-13 10:05 | XMS_ITS | Clinical Summary ---
Author Organization [facility] Healthcare Address [address] [place] [address] Care Team Providers Care Mathematics Faculty Member Name Role Phone KevonArnie Primary Care Provider [phone] Allergies No known active allergies Medications MedicationSigDispense QuantityRefillsLast FilledStart DateEnd DateStatus Cbejcllyrbv-Kwqjkgaat-Sjwtuz (Trelegy Ellipta) 200-62.5-25 MCG/ACT aerosol powder InhaleActive ezetimibe (Zetia) 10 MG tablet Take 10 mg by mouth DailyActive potassium chloride CR (Klor-Con M10) 10 MEQ ER tablet Take 10 mEq by mouth Daily Do not crush or chew.Active amLODIPine (Norvasc) 10 MG tablet Take 10 mg by mouth DailyActive hydrALAZINE (Apresoline) 100 MG tablet Take 100 mg by mouth in the morning and 100 mg in the evening and 100 mg before bedtime.Active isosorbide dinitrate (Isordil) 10 MG tablet Take 10 mg by mouth in the morning and 10 mg in the evening and 10 mg before bedtime.Active metoprolol succinate XL (Toprol-XL) 100 MG 24 hr tablet Take 100 mg by mouth Daily Do not crush or chew.Active allopurinol (Zyloprim) 100 MG tablet Take 100 mg by mouth DailyActive amiodarone (Pacerone) 200 MG tablet Take 200 mg by mouth in the morning.5Active furosemide (Lasix) 80 MG tablet 5Active Calcium Carbonate-Vitamin D (CALTRATE 600+D PO) Take by mouthActive niacin 500 MG tablet Take 500 mg by mouth in the morning. Take with meals.Active ferrous sulfate 325 (65 Fe) MG EC tablet Take 325 mg by mouth in the morning and 325 mg at noon and 325 mg in the evening. Take with meals. Do not crush, chew, or split.Active Ascorbic Acid (vitamin C) 250 MG tablet Take 250 mg by mouth DailyActive levothyroxine (Tirosint) 25 MCG capsule Take by mouth in the morning. Take before meals.Active rivaroxaban (Xarelto) 15 MG tablet Take by mouth Take with food.Active Active Problems ProblemNoted DateDiagnosed DateOSA (obstructive sleep apnea)07/08/2024 Lssgvjkbbkn45/23/2024rimary achwbiwl66/23/2024 Encounters DateTypeDepartmentCare VvahTybpfeleoqc66/15/2025External Result Encounter [facility] External Department Unsolicited Chivo Keller, DO 05/30/2025External Result Encounter [facility] External Department Unsolicited Chivo Keller, DO 05/30/2025External Result Encounter [facility] External Department Unsolicited Chivo Keller, DO 05/30/2025External Result Encounter [facility] External Department Unsolicited Chivo Keller, DO 05/26/2025 1:00 PM EDTTreatment [facility] [address] [place] [address] Ronal Andrews, DIVISION SUPERVISOR Greater trochanteric bursitis of left hip (Primary Dx); History of total hip arthroplasty, right; Left hip pain05/26/2025 10:15 AM EDTProcedure Visit [facility] [address] [place] [address] Kole Batista DPM Onychomycosis (Primary Dx); Onychodystrophy; Diabetic polyneuropathy associated with type 2 diabetes mellitus (HCC)05/26/2025 Bamboo [facility] [address] [place] [address] Kole Batista DPM 05/26/20259569Ntfffn63/05/2025 10:30 AM EDTTreatment N[facility] [address] [place] [address] Ronal Andrews, DIVISION SUPERVISOR Greater trochanteric bursitis of left hip (Primary Dx); History of total hip arthroplasty, right; Left hip pain05/23/2025amboo flowsheet [facility] [address] [place] [address] Ronal Andrews, DIVISION SUPERVISOR 05/23/20254908Jqxsgm21/07/8670Uiywfb34/06/2025 10:00 AM EDTTreatment N[facility] [address] [place] [address] Ronal Andrews, DIVISION SUPERVISOR Greater trochanteric bursitis of left hip (Primary Dx); History of total hip arthroplasty, right; Left hip pain05/21/2025amboo flowsheet [facility] [address] [place] [address] Ronal Andrews, DIVISION SUPERVISOR 05/21/20251526Laihjd09/04/2025 10:30 AM EDTTreatment N[facility] [address] [place] [address] Roxanne Sánchez, DIVISION SUPERVISOR Greater trochanteric bursitis of left hip (Primary Dx); History of total hip arthroplasty, right; Left hip pain05/19/2025amboo flowsheet [facility] [address] [place] [address] Roxanne Sánchez, DIVISION SUPERVISOR 05/19/20251779Mwgqlw76/01/2025 10:30 AM EDTTreatment N[facility] [address] [place] [address] Ronal Andrews, DIVISION SUPERVISOR Greater trochanteric bursitis of left hip (Primary Dx); History of total hip arthroplasty, right; Left hip pain05/16/2025amb flowsheet [facility] [address] [place] [address] Ronal Andrews, [place] 05/16/20251885Ceafih51/30/2025 12:00 PM EDTTreatment N[facility] [address] [place] [address] Ronal Andrews, DIVISION SUPERVISOR Greater trochanteric bursitis of left hip (Primary Dx); History of total hip arthroplasty, right; Left hip pain05/14/2025amboo flowsheet [facility] [address] [place] [address] Darryl Ronal, DIVISION SUPERVISOR 05/14/2025Travelfrom Last 3 Months Immunizations ImmunizationAdministration DatesNext DuePneumococcal Conjugate PCV Family History RelationNameStatusCommentsFatherDeceasedMotherDeceased Social History Tobacco UseTypesPacks/DayYears UsedDateSmoking Tobacco: FormerCigarettes Smokeless Tobacco: NeverAlcohol UseStandard Drinks/WeekCommentsYes0 (1 standard drink = 0.6 oz pure alcohol)caffeine: noneAUDIT-CAnswerDate RecordedFrequency of Alcohol ConsumptionNot on file07/08/2024Q2: How many drinks containing alcohol do you have on a typical day when you are drinking?1 or Q3: How often do you have six or more drinks on one occasion?Never07/08/2024Sex and Gender InformationValueDate RecordedSex Assigned at BirthNot on fileLegal SexMale 12/28/2022 7:17 PM EDTGender RwuktjoiMdyd48/03/2023 4:57 PM EDTSexual OrientationNot on file Last Filed Vital Signs Vital SignReadingTime TakenCommentsBlood Cvrbpcug040/7407/09/2024 10:33 AM EDT Suqys547607/09/2024 10:33 AM EDTTemperature--Respiratory Rate--Oxygen Saturation 93%07/09/2024 10:33 AM EDTInhaled Oxygen Concentration--Bjdpnv92.5 kg (195 lb) 05/26/2025 10:12 AM ILNZxzxdf036.3 cm (5' 11 )05/26/2025 10:12 AM EDTBody Mass Index27. 10:12 AM EDT Plan of Treatment DateTypeDepartmentCare Team (Latest Contact Info)Mtpqkcxutdi15/12/2025 9:45 AM ESTProcedure Visit [facility] [address] [place] [address] Kole Batista, DPM [address] [place], [place] [id number] Health MaintenanceDue DateLast DoneCommentsPneumococcal Vaccine: 65+ Years (2 of 2 - PCV20 or PCV21)Influenza Vaccine (#1)2025 07/15/2024, 07/11/2023, 07/04/2022, Additional history exists Procedures Procedure NamePriorityDate/TimeAssociated DiagnosisCommentsERYTHROPOETIN (EPO), HVEEDLzvxwij74/15/2025 10:59 AM EDT VIT. B12/FOLATE GHNVHEUKrvdfue81/15/2025 10:59 AM EDT OXDMWXKGJnpwoxu22/15/2025 10:59 AM EDT CARCINOEMBRYONIC ZQNHALJHeeujmt30/15/2025 10:59 AM EDT IRON AND TOTAL IRON BINDING OBJCZRHLBjmfnrg14/15/2025 10:59 AM EDT COMPREHENSIVE METABOLIC UEXUTYjzysku76/15/2025 10:59 AM EDT CBC WITH AUTO GKPAYCXGQMOBQwdhgtv88/15/2025 10:59 AM EDT from Last 3 Months Results * ERYTHROPOETIN (EPO), SERUM (05/30/2025 10:59 AM EDT)ComponentValueRef Range Test MethodAnalysis TimePerformed AtPathologist SignatureERYTHROPOETIN (EPO), SERUM22.02.6 - 18.5 m[iU]/mL06/02/2025 6:08 PM EDTFIRESHRINERS HOSPITALS FOR CHILDRENComment: Lashell Galina UniCel DxI 800 Immunoassay System Values obtained with different assay methods or kits cannot be used interchangeably. Results cannot be interpreted as absolute evidence of the presence or absence of malignant disease. Performed at: ?? - [facility] ??[id number] Reclaimer: Nathan Munoz PhD, Phone: ??[phone] Specimen (Source)Anatomical Location / LateralityCollection Method / Volume Collection TimeReceived TimeOtherTopography unknown / Yiujloy3505/30/2025 10:59 AM EDT05/30/2025 10:59 AM EDT Narrative Authorizing ProviderResult TypeResult StatusChivo Keller [facility] BLOOD ORDERABLESFinal ResultPerforming OrganizationAddressSelect [facility]/ZIP CodePhone Number [facility] [address] [place] [address], * (ABNORMAL) CARCINOEMBRYONIC ANTIGEN (05/30/2025 10:59 AM EDT)ComponentValueRef RangeTest MethodAnalysis TimePerformed AtPathologist Signature CARCINOEMBRYONIC ANTIGEN3.4(H)0.0 - 3.0 ng/mL05/30/2025 12:05 PM [facility] CtrComment: Serial tumor marker results determined by assays using different manufacturers or methods may not be comparable. [facility] pocket flap creasing machine operator and method: LASHELL UNICEL DXI, ??2 SITE IMMUNOENZYMATIC ???SANDWICH?? ASSAY. Specimen (Source)Anatomical Location / LateralityCollection Method / Volume Collection TimeReceived TimeOtherTopography unknown / Wespfcj3605/30/2025 10:59 AM EDT05/30/2025 10:59 AM EDT Narrative Authorizing ProviderResult TypeResult StatusChivo Keller [facility] BLOOD ORDERABLESFinal ResultPerforming OrganizationAddressty/[facility]/ZIP CodePhone Number [facility] [address] [place] [phone], [facility] [address] [place] [phone] * VIT. B12/FOLATE PROFILE (05/30/2025 10:59 AM EDT)ComponentValueRef RangeTest MethodAnalysis TimePerformed AtPathologist SignatureVITAMIN [id number] - 914 pg/mL05/30/2025 12:17 PM [facility] CtrFOLATE>49.6>5.9 ng/mL05/30/2025 1:07 PM [facility] CtrComment: Folate reference range: >5.9 ng/ml The WHO technical consultation on folate and vitamin b12 deficiencies has determined that folate concentrations less than 4 ng/ml are considered deficient. Specimen (Source)Anatomical Location / LateralityCollection Method / Volume Collection TimeReceived TimeOtherTopography unknown / Qmnnnjx0005/30/2025 10:59 AM EDT05/30/2025 10:59 AM EDT Narrative Authorizing ProviderResult TypeResult StatusChivo Keller [facility] BLOOD ORDERABLESFinal ResultPerforming OrganizationAddressCity/State/ZIP CodePhone Number [facility] [address] [place] [address], [facility] [address] [place] [address] * (ABNORMAL) CBC auto differential (05/30/2025 10:59 AM EDT)ComponentValueRef RangeTest MethodAnalysis TimePerformed AtPathologist SignatureWBC7.24.1 - 10.5 [CFU]/mL05/30/2025 11:33 AM [facility] CtrUNCORRECTED WHITE BLOOD COUNT7.24.1 - 10.5 10*3/uL05/30/2025 11:33 AM [facility] CtrRBC3.933.90 - 5.60 10*6/uL05/30/2025 11:33 AM [facility] BoxAIHTWURDJB38.5(L)13.0 - 17.0 g/dL05/30/2025 11:33 AM [facility] RepSZCIGSEBMP37.5(L)38.8 - 50.0 %05/30/2025 11:33 AM [facility] YupXAD55.583.5 - 101 fL05/30/2025 11:33 AM [facility] QulYLV24.727.5 - 35.2 pg05/30/2025 11:33 AM [facility] SpyCWJD28.232.5 - 35.6 g/dL05/30/2025 11:33 AM [facility] CtrRED CELL DISTRIBUTION WIDTH, RDW14.712.0 - 14.8 %05/30/2025 11:33 AM [facility] CtrPLATELET HSEOP802997 - 450 10*05/30/2025 11:33 AM [facility] CtrMEAN PLATELET VOLUME, MPV7.36.6 - 10.1 fL05/30/2025 11:33 AM [facility] CtrNEUTROPHILS, %67.8. %05/30/2025 11:33 AM [facility] LYMPHOCYTES, %19.9. %05/30/2025 11:33 AM [facility] MONOCYTE/MACROPHAGE, %9.7. %05/30/2025 11:33 AM [facility] CtrEOSINOPHILS, %2.2. %05/30/2025 11:33 AM [facility] BASOPHILS, %0.4. %05/30/2025 11:33 AM [facility] CtrNRBC0.0 0 - 0.5 /100{WBC}05/30/2025 11:33 AM [facility] NEUTROPHILS4.91.8 - 7.7 10*05/30/2025 11:33 AM [facility] CtrLYMPHOCYTES1.41.00 - 4.8 10*05/30/2025 11:33 AM [facility] CtrMONOCYTES0.70.0 - 0.8 10*05/30/2025 11:33 AM [facility] CtrEOSINOPHILS0.20.0 - 0.45 10*05/30/2025 11:33 AM [facility] CtrBASOPHILS0.00.0 - 0.2 10*05/30/2025 11:33 AM [facility] CtrSpecimen (Source)Anatomical Location / LateralityCollection Method / VolumeCollection TimeReceived TimeBlood (Blood)05/30/2025 10:59 AM EDT05/30/2025 10:59 AM EDT Narrative Authorizing ProviderResult TypeResult StatusTimothy J Adamowicz [facility] BLOOD ORDERABLESFinal ResultPerforming OrganizationAddressty/State/ZIP CodePhone Number [facility] [address] [place] [address], [facility] [address] [place] [address] * (ABNORMAL) Iron and TIBC (05/30/2025 10:59 AM EDT)ComponentValueRef RangeTest MethodAnalysis TimePerformed AtPathologist IynacpsvjFZUH3985 - 212 ug/dL 05/30/2025 11:51 AM [facility] CtrTOTAL IRON BINDING ESKVCUUQ621521 - 450 ug/dL05/30/2025 11:51 AM [facility]% IRON WDRGNLZMFR55.120 - 50 %05/30/2025 11:51 AM [facility] ChyYGSRIWOILZD556(L)203 - 362 mg/dL05/30/2025 11:51 AM [facility] CtrSpecimen (Source)Anatomical Location / Laterality Collection Method / VolumeCollection TimeReceived TimeOtherTopography unknown / Cdjpcvs0705/30/2025 10:59 AM EDT05/30/2025 10:59 AM EDT Narrative Authorizing ProviderResult TypeResult StatusTimdomo COOKAB BLOOD ORDERABLESFinal ResultPerforming OrganizationAddressty/State/ZIP CodePhone Number [facility] [address] [place] [address], [facility] [address] [place] [address] * Ferritin (05/30/2025 10:59 AM EDT)ComponentValueRef RangeTest MethodAnalysis TimePerformed AtPathologist KaukxggcdYOEQOJHS781.223.9 - 336.2 ng/mL05/30/2025 12:13 PM [facility] CtrSpecimen (Source)Anatomical Location / LateralityCollection Method / VolumeCollection TimeReceived Time OtherTopography unknown / Awfepvi3405/30/2025 10:59 AM EDT05/30/2025 10:59 AM EDT Narrative Authorizing ProviderResult TypeResult StatusTimdomo Keller D[facility] BLOOD ORDERABLESFinal ResultPerforming OrganizationAddressCity/State/ZIP CodePhone Number [facility] [address] [place] [address], [facility] [address] [place] [address] * (ABNORMAL) Comprehensive metabolic panel (05/30/2025 10:59 AM EDT)Component ValueRef RangeTest MethodAnalysis TimePerformed AtPathologist SignatureGlucose 106(H)70 - 100 mg/dL05/30/2025 11:51 AM [facility] Comment: Random Glucose Reference Range is dependent on time and content of last meal. Glucose of more than 200 mg/dL in a nonstressed, ambulatory subject supports the diagnosis of Diabetes Mellitus. ADA recommended reference range BUN44(H)7 - 25 mg/dL05/30/2025 11:51 AM [facility] CREATININE2.26(H)0.70 - 1.30 mg/dL05/30/2025 11:51 AM [facility] CtrESTIMATED GFR28.24426 11:51 AM [facility] UbsMxmjgc611912 - 145 mmol/L05/30/2025 11:51 AM [facility] CtrPotassium, Bld4.23.5 - 5.1 mmol/L05/30/2025 11:51 AM [facility] NoaBrnbsmhq54216 - 107 mmol/L05/30/2025 11:51 AM [facility] CtrCarbon Wwclljk55.0(H)21.0 - 31.0 mmol/L05/30/2025 11:51 AM [facility] CtrAnion Gap10.26.0 - 15.008 11:51 AM [facility] CtrCalcium8.68.6 - 10.3 mg/dL05/30/2025 11:51 AM [facility] CtrTOTAL PROTEIN6.56.4 - 8.9 g/dL05/30/2025 11:51 AM [facility] CtrALBUMIN LEVEL4.23.5 - 5.7 g/dL05/30/2025 11:51 AM [facility] CtrGLOBULIN2.3g/dL05/30/2025 11:51 AM [facility] CtrALBUMIN/GLOBULIN RATIO1.808 11:51 AM [facility] CtrBILIRUBIN,TOTAL0.60.3 - 1.0 mg/dL05/30/2025 11:51 AM [facility] CtrASPARTATE AMINO HWESUVFIEXX3279 - 39 U/L 05/30/2025 11:51 AM [facility] CtrALANINE PDBCQSAWNLSKJGZG079 - 52 U/L05/30/2025 11:51 AM [facility] CtrALKALINE KCEVKYTXOJG682(H)34 - 104 U/L05/30/2025 11:51 AM [facility] CtrCREATININE CLR CALC EMJAIWGA55.38005/30/2025 11:51 AM [facility] CtrSpecimen (Source)Anatomical Location / LateralityCollection Method / VolumeCollection TimeReceived TimeOtherTopography unknown / Cviiylv3305/30/2025 10:59 AM EDT05/30/2025 10:59 AM EDT Narrative Authorizing ProviderResult TypeResult StatusChivo COOKAB BLOOD ORDERABLESFinal ResultPerforming OrganizationAddressCity/State/ZIP CodePhone Number [facility] [address] [place] [address], [facility] [address] [place] [address] from Last 3 Months Insurance Care Teams Team MemberRelationshipSpecialtyStart DateEnd Date Arnie Lund DO [address] [place] [phone] PCP - GeneralInternal Medicine02/18/25
--- OUTSIDE RECORDS SUMMARY | 2025-08-13 10:05 | XMS_ITS | Clinical Summary ---
Author Organization [facility] Address [address] [place] [address] Phone Care Team Providers Care Foreign Food Cook Specialty Name Role Phone Unavailable Primary Care Provider Unavailabl e Social History Tobacco UseTypesPacks/DayYears UsedDateSmoking Tobacco: Never AssessedSex and Gender InformationValueDate RecordedSex Assigned at BirthNot on fileLegal Sex Male09/10/2022 9:13 AM ESTGender IdentityNot on fileSexual OrientationNot on file Plan of Treatment Not on file
--- OUTSIDE RECORDS SUMMARY | 2025-08-13 10:05 | XMS_ITS | Clinical Summary ---
Author Organization [facility] Address [address] [place] [address] Care Team Providers Care Tipple Repairer Name Role Phone Arnie Lnud DO Primary Care Provider [phone] Allergies Active AllergyReactionsCriticalityNoted HhucOztpxhcfYtmslkm-Jbv-Vty Reductase Kfifkelxai91/25/4855Glcxxsqa39/25/2022 Medications MedicationSigDispense QuantityRefillsLast FilledStart DateEnd DateStatus allopurinol (Zyloprim) 100 mg tablet Take 1 tablet by mouth in the morning.Active cholecalciferol, vitamin D3, 100 mcg (4,000 unit) capsule Take 1 capsule every day by oral route.Active niacin 500 mg tablet Take 1 tablet every day by oral route.Active potassium chloride CR (Klor-Con) 10 mEq ER tablet Take 1 tablet every day by oral route for 30 days.Active methIMAzole (Tapazole) 5 mg tablet Take 5 mg by mouth 2 (two) times a week.02/25/2022ctive Trelegy Ellipta 200-62.5-25 mcg blister with device Indications:Mild asthma, unspecified whether complicated, unspecified whether persistentINHALE 1 INHALATION BY MOUTH IN THE MORNING 180 each ctive furosemide (Lasix) 80 mg tablet Take 80 mg by mouth in the morning.Active isosorbide dinitrate (Isordil) 10 mg tablet Indications:Chest pain, unspecified typeTAKE 1 TABLET BY MOUTH 3 TIMES DAILY 270 tablet ctive Additional Information Patient taking differently:10 mg oral2 times daily, Reported on 05/27/2025 ascorbic acid (Vitamin C) 500 mg ER capsule Take 200 mg by mouth in the morning.Active ferrous sulfate 325 (65 Fe) MG EC tablet Take 65 mg of iron by mouth with breakfast, with lunch, and with evening meal. Do not crush, chew, or split.Active rivaroxaban (Xarelto) 15 mg tablet Indications:PAF (paroxysmal atrial fibrillation) (CMS/HCC)Take 1 tablet (15 mg) by mouth daily with evening meal. Take with food.5Active amLODIPine (Norvasc) 10 mg tablet Take 10 mg by mouth in the morning.Active levothyroxine (Synthroid, Levoxyl) 25 mcg tablet Take 25 mcg by mouth in the morning.5Active ezetimibe (Zetia) 10 mg tablet Indications:Hyperlipemia, mixedTAKE 1 TABLET BY MOUTH AT BEDTIME 90 tablet 5Active metoprolol succinate XL (Toprol-XL) 100 mg 24 hr tablet Indications:Persistent atrial fibrillation (CMS/HCC)TAKE 1 TABLET BY MOUTH ONCE DAILY DIRECTED. DO NOT CRUSH OR CHEW 90 tablet 5Active hydrALAZINE (Apresoline) 25 mg tablet Indications:Chronic systolic heart failure (CMS/HCC),Primary hypertensionTake 1 tablet (25 mg) by mouth three times daily. 270 tablet 506Active Active Problems ProblemNoted DateDiagnosed PumiCmqhedorujs38/23/2024rimary isvaunds78/23/2024 Chronic bronchitis, lcsssd1803/29/2024hronic venous /14/2024 Uirkyfixpsty66/14/2024Hyperlipidemia type II03/29/2024Hypothyroidism due to wgeuomfztf29/14/2024Impaired mobility and activities of daily cevkoz9103/29/2024 Iron deficiency mddfiu5403/29/2024olon bqgqri5603/29/2024Mucopurulent chronic ceelviapzs70/14/2024Obstructive sleep apnea03/29/20240575Dqcioyadd35/14/2024-fib 03/29/2024soas abscess, right03/29/2024ulmonary ptuqscxgllvd17/14/2024 Titfvkujasnesc67/14/2024Type 2 diabetes mellitus with ouxtbjheysewr57/14/2024 Stage 4 chronic kidney ovvhbfd3309/22/2023Statin rcwvaqncaxo63/14/2023Dilated rgahydmvoexvwi04/20/2023 Overview (04/04/2023): Added automatically from request for surgery [id number] Stage 3 chronic kidney /25/2022Chronic systolic heart urfebpv6106/09/2022 Assessment & Plan (09/20/2022 5:21 PM EST): -HFrEF -NHYA III -he appears euvolemic on exam despite weight gain, this could be attributed to correcting thyroid issues -He has no LE edema, JVD -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 accuracy expert regarding kidney function -he will need 3 month follow up with moukarbel -continue GDMT: norvasc, aspirin, bumex, hydralazine, isosorbide, toprolXL Vventvdrrgdy57/25/2022Edema of lower dsjywgdax67/25/2022 Assessment & Plan (09/20/2022 5:23 PM EST): -this must be improved as he does not exhibit any LE edema Hypertensive /25/2022 Assessment & Plan (09/20/2022 5:22 PM EST): -he is controlled today -will continue to re-evaluate on follow up pending nephrology recommendations Left ventricular systolic hauxltiqrdl74/25/7164Mzwouddziyg16/25/2022COPD (chronic obstructive pulmonary disease)2Osteomyelitis of vertebra 9402Gbzqxsqlmu19/01/5307Peitetnpjseznx67/01/2021Type 2 diabetes mellitus 1Paroxysmal atrial tatxhhy6008/16/2019 Resolved Problems ProblemNoted DateDiagnosed DateResolved HqycWfbolmfmczai55/01/202107/ Encounters DateTypeDepartmentCare BvjdDkrnlereuvn15/10/2025 9:30 AM EDTAncillary Procedure [facility] [address] [place] [phone] Pre-operative cardiovascular examination, ICD in place07/25/2025Orders Only [facility] [address] [place] [address] Sarwat Lazo MD 07/23/2025Telephone [facility] [address] [facility] [place] [address] Juana Garrett MA 07/21/2025Telephone [facility] [address] [facility] [place] [address] Kalee Mahmood MA 06/27/2025Refill [facility] [address] [facility] [place] [address] Kalee Mahmood MA Chronic systolic heart failure (CMS/HCC); Primary rjhwxpabqxyv71/11/2025Telephone [facility] [address] [facility] [place] [address] Kalee Mahmood MA 06/26/2025Refill [facility] [address] [facility] [place] [address] Adan Ortiz MD Persistent atrial fibrillation (CMS/HCC)06/24/2025 4:30 AM EDTAncillary Procedure [facility] [address] [place] [phone] Pre-operative cardiovascular examination, ICD in place06/24/2025Orders Only [facility] [address] [place] [address] Mariusz Montoya MD 06/06/2025Telephone [facility] [address] [facility] [place] [address] Marilin Aguayo MA 06/06/2025Orders Only [address] [place] [address] Little Mckeon CNP 05/27/2025 9:30 AM EDTOffice Visit [address] [place] [address] Mariusz Montoya MD Paroxysmal atrial fibrillation (CMS/HCC) (Primary Dx)05/27/2025Orders Only [facility] [address] [facility] [place] [address] Kalee Mahmood MA Paroxysmal atrial fibrillation (CMS/HCC) (Primary Dx)05/26/2025 9:30 AM EDT Ancillary Procedure [facility] [address] [place] [address] Pre-operative cardiovascular examination, ICD in place05/22/2025Orders Only [facility] [address] [place] [phone] Sarwat Lazo MD 05/22/2025Orders Only [facility] [address] [place] [phone] Mariusz Montoya MD 05/19/2025 12:30 PM EDTAncillary Procedure [facility] [address] [place] [address] Pre-operative cardiovascular examination, ICD in placefrom Last 3 Months Immunizations ImmunizationAdministration DatesNext DueInfluenza, Cjcrukrgcsh19/01/2019 Unspecified Sars-Cov-2 Qzdntgobdma61/18/2021,11/12/2020 Family History Medical HistoryRelationNameCommentsGlaucomaBrotherHeart diseaseFatherDiabetes Maternal GrandmotherDiabetesMotherClotting disorderOtherRelationNameStatus CommentsBrotherFatherDeceasedMaternal GrandmotherMotherDeceasedOther Social History Tobacco UseTypesPacks/DayYears UsedDateSmoking Tobacco: FormerCigarettesQuit: 1982Smokeless Tobacco: Never Tobacco Cessation:Counseling Given: Not Answered Alcohol UseStandard Drinks/WeekCommentsYes0 (1 standard drink = 0.6 oz pure alcohol)OCCASIONALPHQ-2AnswerDate RecordedPatient Health Questionnaire-2 Score0 04/25/2023UT Safety & EnvironmentAnswerDate RecordedFear of Current or Ex-PartnerNot on 12/07/2023Emotionally AbusedNot on 12/07/2023hysically AbusedNot on 12/07/2023Sexually AbusedNot on file12/07/2023hysically or Sexually AbusedNot on file12/07/2023Sex and Gender InformationValueDate Recorded Sex Assigned at KihakPgzk88/28/2023 6:32 AM EDTLegal NfgFngx7904/13/2022 11:44 PM EDTGender IggvplukQdfj19/28/2023 6:32 AM EDTSexual OrientationHeterosexual or Vzmmsmgd96/28/2023 6:32 AM EDT Last Filed Vital Signs Vital SignReadingTime TakenCommentsBlood Nnagvxrh736/7305/27/2025 9:25 AM EDT Gnunp939505/27/2025 9:25 AM FZYEohedqyprpz04.1 ??C (97 ??F)07/08/2021 2:48 PM EDT Respiratory Lzqo679610/17/2024 12:27 PM ESTOxygen Qanntpaapn24%05/27/2025 9:25 AM EDTInhaled Oxygen Concentration--Ekpxwu49.7 kg (200 lb)05/27/2025 9:25 AM EDT Dhotvi024.3 cm (5' 11 )05/27/2025 9:25 AM EDTBody Mass Index27.8905/27/2025 9:25 AM EDT Plan of Treatment DateTypeDepartmentCare Team (Latest Contact Info)Rsvhxoeqahy71/05/2025Hospital Encounter [facility] [address] [place] [address] Mariusz Montoya MD [address] [place] [address] NamePriorityAssociated DiagnosesDate/TimeAtrial Fib Ablation w/ PVI Paroxysmal atrial fibrillation (CMS/HCC) Health MaintenanceDue DateLast DoneCommentsMedicare Annual Wellness (AWV) 2Diabetes: Retinopathy Lekdtfans31/18/1952Depression Screening 4Diabetes: Urine Protein Vncvdwwwt34/18/1961Adult Ulvamrb6205/02/1964 Zoster Vaccines (1 of 2)1992Fall Risk Svxmtreia64/18/2007Pneumococcal Vaccine: 50+ Years (2 of 2 - PPSV23, PCV20, or PCV21) Diabetes: Hemoglobin A1C/, 08/13/2019COVID-19 Vaccine ( season)/04/2024, 07/20/2023, 07/10/2022, Additional history existsInfluenza XiiwxfrYrlztdywa78/23/2025, 07/15/2024, 07/11/2023, Additional history existsHIB VaccinesAged OutNo longer eligible based on patient's age to complete this topicHPV VaccinesAged OutNo longer eligible based on patient's age to complete this topicIPV VaccinesAged OutNo longer eligible based on patient's age to complete this topicMeningococcal B VaccineAged OutNo longer eligible based on patient's age to complete this topicMeningococcal VaccineAged OutNo longer eligible based on patient's age to complete this topicRotavirus Vaccines Aged OutNo longer eligible based on patient's age to complete this topic Medical Devices ImplantedTypeAreaManufacturerDevice IdentifierShelf Expiration DateModel / Serial / LotRivacor 7 Hf-T Qp Implanted:Qty: 1 on 06/12/2023 by [facility] [id number] / [id number] / Plex[employer] Promri S 60 - [id number] - [id number] Implanted:Qty: 1 on 06/12/2023 by [id number] / [id number] / Ham Barron Qp L-85 - [id number] - [id number] Implanted:Qty: 1 on 06/12/2023 by [id number] / [id number] / Procedures Procedure NamePriorityDate/TimeAssociated DiagnosisCommentsCARDIAC DEVICE CHECK CHECK - NPSERWBcwzazm52/14/2025 3:32 PM EDT Pre-operative cardiovascular examination, ICD in place CARDIAC DEVICE CHECK - REMOTE - HYMWwncytu39/10/2025 12:00 AM EDTCARDIAC DEVICE CHECK CHECK - YTPGQHAdahldp99/10/2025 1:13 PM EDT Pre-operative cardiovascular examination, ICD in place CARDIAC DEVICE CHECK - REMOTE ALERT - JNEWgqvbkx70/09/2025 12:00 AM EDTCARDIAC DEVICE CHECK CHECK - VZBILPVuppjdl57/14/2025 6:06 PM EDT Pre-operative cardiovascular examination, ICD in place CARDIAC DEVICE CHECK CHECK - ROZZHFVmjuejv41/14/2025 6:03 PM EDT Pre-operative cardiovascular examination, ICD in place CARDIAC DEVICE CHECK - REMOTE ALERT - HHKNelhuzu22/07/2025 12:00 AM EDTCARDIAC DEVICE CHECK - REMOTE - VPRTotpmpx92/07/2025 12:00 AM EDTCARDIAC DEVICE CHECK CHECK - MIICCYCnelriw95/06/2025 3:47 PM EDT Pre-operative cardiovascular examination, ICD in place CARDIAC DEVICE CHECK CHECK - QKKYSRLlgkcln38/30/2025 2:17 PM EDT Pre-operative cardiovascular examination, ICD in place HEMOGLOBIN U9IStgrugq98/17/2022 5:51 AM EDT from Last 3 Months or Most Recently Relevant to Health Maintenance Results * CARDIAC DEVICE CHECK - REMOTE - ICD (07/29/2025 3:32 PM EDT) Only the most recent of6 resultswithin the time period is included. Specimen (Source)Anatomical Location / LateralityCollection Method / Volume Collection TimeReceived Time Narrative Authorizing ProviderResult TypeResult StatusBlair Hill MDCV IMPLANTABLE CARDIAC DEVICE PROCEDURESFinal ResultPerforming OrganizationAddressCity/State/ZIP Code Phone Number CPACS * Cardiac device check - Remote ICD (07/25/2025 12:00 AM EDT) Only the most recent of2 resultswithin the time period is included. Anatomical RegionLateralityModalityOtherSpecimen (Source)Anatomical Location / LateralityCollection Method / VolumeCollection TimeReceived Time07/25/2025 Narrative Authorizing ProviderResult TypeResult StatusSarwat Lazo [facility] IMPLANTABLE CARDIAC DEVICE PROCEDURESFinal Result * Cardiac device check - Remote alert ICD (06/24/2025 12:00 AM EDT) Only the most recent of2 resultswithin the time period is included. Anatomical RegionLateralityModalityOtherSpecimen (Source)Anatomical Location / LateralityCollection Method / VolumeCollection TimeReceived Time06/24/2025 Narrative Authorizing ProviderResult TypeResult StatusTonytri Montoya [facility] IMPLANTABLE CARDIAC DEVICE PROCEDURESFinal Result * (ABNORMAL) Hemoglobin A1c (04/01/2022 5:51 AM EDT)ComponentValueRef RangeTest MethodAnalysis TimePerformed AtPathologist SignatureHemoglobin A1C6.4(H)4.0 - 6.0 %LAB CONVERSIONSEstimated Average Jahgyiy992bppl/LLAB CONVERSIONSSpecimen (Source)Anatomical Location / LateralityCollection Method / VolumeCollection TimeReceived Time04/01/2022 5:51 AM EDT04/01/2022 6:04 AM EDT Narrative LAB CONVERSIONS - 04/01/2022 2:09 PM EDT If not done in ED No: Do not add to previous draw Authorizing ProviderResult TypeResult StatusGeneric Provider ConversionLAB BLOOD ORDERABLESFinal ResultPerforming OrganizationAddressCity/State/ZIP CodePhone Number LAB CONVERSIONS from Last 3 Months or Most Recently Relevant to Health Maintenance Insurance * Guarantor: Nas Oliver TypeRelation to PatientDate of BirthPhone Billing AddressPersonal/ViteuvVwto1940 [facility] [address] Advance Directives * Full Code (Latest Code Status on File) Date ActivatedDate InactivatedComments06/12/2023 10:55 AM06/12/2023 2:41 PM Care Teams Team MemberRelationshipSpecialtyStart DateEnd Date Arnie Lund DO [address] [place] [phone] PCP - General06/07/22
[2025-08-13 10:44] LABS: Hematocrit 38.8 % (42.0-54.0); Hemoglobin 12.8 g/dL (14.0-18.0); Mean Corpuscular HGB Conc 33.0 g/dL (29.9-35.2); Mean Corpuscular Hemoglobin 32.0 pg (25.9-34.0); Mean Corpuscular Volume 97.0 fL (80.0-94.0); Platelet Count 202 10^3/uL (150-450); Red Blood Count 4.00 10^6/uL (4.70-6.10); White Blood Count 6.8 10^3/uL (4.0-11.0)
[2025-08-13 11:15] LABS: Glucose Urine UA NEGATIVE (NEGATIVE)
[2025-08-13 11:23] LABS: Cast Seen? SEEN #/LPF (NONE SEEN); Crystals Seen? None Seen #/HPF (None Seen)
[2025-08-13 11:26] LABS: Iron 83.0 ug/dL (65.0-175.0); Percent Iron Saturation 33.1 %; Total Iron Binding Capacity 251.0 ug/dL (250.0-450.0)
--- OUTSIDE RECORDS SUMMARY | 2025-08-13 11:39 | XMS_ITS | CCD ---
Author Organization [facility] Inform ion [facility] Care Team Providers Care Soft Shoe Dancer Name Role Phone GILMER SALAZAR Attending Unavailable GILMER SALAZAR Admitting Unavailable YAS LINDA Referring Unavailable YAS LINDA Primary Care Unavailable DO Yas Linda Primary Care Provider CHARLENE Kelly Attending Provider MD Kalia Sánchez Referring Provider [phone] DO Chivo Keller II Attending Provider [phone] MD Kalia Sánchez Referring Provider DO Chivo Keller II Attending Provider MD Ramesh Rascon Attending Provider [phone] DO Yas Linda Primary Care Provider MD Ramesh Rascon Attending Provider MD Kalia Sánchez Referring Provider DO Chivo Keller II Attending Provider Yas Linda Unavailable LAURA, FERMIN Admitting Unavailable LAURA, FERMIN Attending Unavailable LAURA, FERMIN Consulting Unavailable MADDI, DR SORENSON Primary Care Unavailable MISC, DR VELASQUEZ Consulting Unavailable MISC, DR VELASQUEZ Admitting Unavailable MISC, DR VELASQUEZ Attending Unavailable BALL, DR SORENSON Primary Care Unavailable GRIGSBY ., DR RUPINDER Stapels Admitting Unavailable GRIGSBY ., DR RUPINDER Staples Attending Unavailable RUCKER, DR MICHAELA Hernandez Consulting Unavailable MADDI, DR SORENSON Primary Care Unavailable GRIGSBY ., DR RUPINDER Staples Consulting Unavailable SHARA, ISAURO Consulting Unavailable ANTHONY TRACEY Consulting Unavailable MADDI, [...] DR SORENSON Admitting Unavailable ZIEBER, DR MALENA Hernandez Consulting Unavailable BALL, DR SORENSON Attending Unavailable [...] shaina SYED MD, AVERY Ennis Attending Unavailab shaina SYED MD, AVERY Ennis Consulting Unavailab shaina LINDA, DR SORENSON Primary Care Unavailable YISSEL, DR SEYMOUR Admitting Unavailable YISSEL, DR SEYMOUR Attending Unavailable MADDI, DR SORENSON Primary Care Unavailable DO Yas Linda Primary Care Provider [phone] MD Kalia Sánchez Referring Provider Arianna II, DO Chivo Howell Attending Provider DO Yas Linda Primary Care Provider MD Kalia Sánchez Referring Provider Arianna APARICIO, DO Chivo Howell Attending Provider [phone] Maddi BUTLER, Yas Staples Primary Care Provider Yas Linda DO Primary Care Provider Maddi HERRMANN, Yas Staples Primary Care Provider Maddi HERRMANN, Yas Primary Care Provider Barrie BUTLER, Sudha Admit Provider Walker Soria MD Other Provider Wendy Mota MD Other Provider Marleen 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-C, Kiesha Ennis Other Provider Unavail able José Luis Winslow DO Other Provider Dre BUTLER, Mazin Lemos Other Provider Dario Rosales DO Other Provider Emile Reynolds DO Attending Provider Winsome Goff MD Other Provider Colleen 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-C, Judy Other Provider Unavailable Zahida Flowers MD Other Provider Kaitlynn Emanuel MD Other Provider Coretta BUTLER, Talisha Other Provider Sotero Black MD Other Provider Brenda Driscoll APRN Other Provider William Quinteros DO Other Provider Clyde Bedolla MD Other Provider Wayne BUTLER, Sotero Admit Provider Sotero Black MD Attending Provider Yas Linda DO Primary Care Provider [phone] Barrie BUTLER, Sudha Admit Provider Yang BUTLER, Walker Other Provider Nakul BUTLER, Wendy Hernandez Other Provider Marleen 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-C, Kiesha Ennis Other Provider Unavail able Nayla HERRMANN, José Luis Goyal Other Provider Dre BUTLER, Mazin Lemos Other Provider [phone] Dario Rosales DO Other Provider Emile Reynolds DO Attending Provider Winsome Goff MD Other Provider Colleen 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-C, Judy Other Provider Unavailable Lionel BUTLER, Zahida Other Provider Jenae BUTLER, Kaitlynn Other Provider Coretta BUTLER, Talisha Other Provider Sotero Black MD Other Provider Brenda Driscoll APRN Other Provider William Quinteros DO Other Provider Clyde Bedolla MD Other Provider Sotero Black MD Admit Provider Soetro Black MD Attending Provider Paulo MEDINA, Noemy Other Provider Unavailable Reynaldo MEDINA, Carolynn Other Provider Unavailable Isael MEDINA, Gretel Other Provider Unavailable Sree MEDINA, Merissa Other Provider Unavailable Yuniel MEDINA, Pati Other Provider Unavailable Vicky Jasso MD Other Provider Kofi Bustamante DO Other Provider [phone] Mario Salazar MD Other Provider Rachid Adhikari DO Other Provider Genet BUTLER, Yassine Other Provider Sudha Sood MD Other Provider [phone] Micah Curry DO Other Provider Nicholas BUTLER, Nav Other Provider Unavailable Zoie Field APRN Other Provider Jameel BUTLER, Jaye Other Provider Augustine Bishop MD Other Provider Osmar BUTLER, Jan Other Provider Unavailable Shannan Valentin MD Other Provider Micah Lyn DO Other Provider [phone] Elliott Cole MD Other Provider Yaron Devi MD Other Provider Chase 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-C, Candi Howell Other Provider Que LEON, Matthew [...] Bertram BUTLER, Carole Lemos Other Provider Siobhan Rucker APRN Other Provider [phone] Aislinn Maria APRN Other Provider Yumiko BUTLER, Los Other Provider Unavailable Live Grajeda MD Other Provider [phone] Diaz DO, Doron T Other Provider [phone] Forest DO, Kia Other Provider Martín BUTLER, Wolfgang Davey Other Provider Tera BUTLER, India Villa Other Provider Deepak LEON, Lisa Other Provider Unavailable Stan BUTLER, Magnolia Other Provider Susy BUTLER, Laurent Other Provider Maryana BUTLER, Sotero Rocha Other Provider Eden BUTLER, Nav Purdy Other Provider Ermias BUTLER, Dano Other Provider Karime LEON, Aria Cabrera Other Provider Dima LEON, Alvina Other Provider Eliza RN, Aura Other Provider Unavailable Ramesh Rascon MD Other Provider Jerry Velasquez APRN Other Provider Corey BUTLER, Son Other Provider Erica Tian DO Other Provider Gilles Kirkland APRN Other Provider Walker Soria MD Attending Provider NO FAMILY, PHYSICIAN Primary Care Provider Unava ilable Yas Linda DO Primary Care Provider Yas Linda DO Primary Care Provider Kalia Sánchez MD Referring Provider [phone] Chivo Keller DO Attending Provider Kalia Sánchez MD Referring Provider Chivo Keller DO Attending Provider [phone] Zahida Flowers MD Attending Provider Yas Linda DO Primary Care Provider Yas Linda DO Attending Provider Walker Soria MD Attending Provider Arianna HERRMANN Chivo Lynda Attending Provider Kalia Sánchez MD Referring Provider [phone] Yas Linda DO Primary Care Provider Yas [...] Attending Unavailable OLEXA, WALKER Referring Unavailable EMELY RAMON Attending Unavailable KILO ANDREWS Attending Unavailable OLEXA, WALKER Referring Unavailable SIDRA TELLO Attending Unavailable MARILIN CLAY Attending Unavailable [facility] Unavailable Ramesh Rascon Attending Unavailable Ramesh Rascon Admitting Unavailable Olexa, Walker Attending Unavailable [facility] Unavailable Olexa, Walker Admitting Unavailable Wayne, Sotero Attending Unavailable Wayne, Sotero Admitting Unavailable Olexa, Walker Admitting Unavailable Olexa, Walker Attending Unavailable [facility] Unavailable Olexa, Walker Consulting Unavailable [facility] Unavailable Emile Reynolds Attending Unavailable Barrie, Sudha Admitting Unavailable Wendy Mtoa Consulting Unavailable Kiesha Hawley Consulting Unavailable José Luis Winslow Consulting Unavailable Mazin Erickson II Consulting UnavailDario Handy Consulting Unavailable Winsome Goff Consulting Unavailable Judy Macias Consulting Unavailable Zahida Flowers Consulting Unavailable Kaitlynn Emanuel Consulting Unavailable Talisha Hitchcock Consulting Unavailable Sotero Black Consulting Unavailable Brenda Driscoll Consulting Unavailable William Quinteros Jr Consulting UnavailClyde Camacho Consulting Unavaila [facility] Unavailable Sotero Black Attending Unavailable Sotero [...] Joseph Consulting Unavailable Eloy Resendiz Consulting Unavailable Almoselmeena Khalexochilt Consulting Unavailable Jeny, Elias Consulting Unavailable Mirian Calvo Consulting Unavailable Vish Bajwa Consulting Unavailable Krysten Mcclelland Consulting Unavailable Emile Reynolds Consulting Unavailable DaromaJeff hernandezaycosmo Lemos Consulting Unavailable Siobhan Rucker Consulting Unavailable Aislinn Maria Consulting Unavailable Los Calderon Consulting Unavailable Live Grajeda Consulting Unavailable Doron Diaz Consulting Unavailable Kia Garg Consulting Unavailable Wolfgang Resendiz Consulting Unavailable India Haley Consulting Unava ilLisa Barnett Consulting Unavailable Magnolia Pierce Consulting Unavailable Laurent Jain Consulting Unavailable Sotero Mijares Consulting Unavailable Nav Harmon Consulting Unavailable Dano Monson Consulting Unavailable Aria Schaffer Consulting Unavailable Alvina Ch Consulting UnavailAura Estevez Consulting Unavailable Winsome Goff Consulting Unavailable Judy Macias Consulting Unavailable Zahida Flowers Consulting Unavailable Kaitlynn Emanuel Consulting Unavailable Ramesh Rascon Consulting Unavailable Jerry Velasquez Consulting Unavailable Asaad, Imad Consulting Unavailable Erica Tian Consulting Unavailable Gilles Kirkland Consulting Unavailable Yas Linda DO Primary Care Provider Yas Linda DO Attending Provider Walker Soria MD Attending Provider [phone] Chaparro SALASC, Kecia Staples Attending Provider Kalia Sánchez MD Referring Provider Chivo Keller DO Attending Provider Yas Linda DO Primary Care Provider Yas Linda DO Attending Provider Sidra Tello DO Attending Provider [phone] Yas Linda DO Primary Care Provider Zahida Flowers MD Attending Provider Yas Linda DO Primary Care Provider Erica Dalton CMA Attending Provider UnavailTRANG Ortiz Referring Unavailable MIKAYLA, TRANG Admitting Unavailable MIKAYLA, TRANG Attending Unavailable MIKAYLA, TRANG Referring Unavailable BASHIR, RON Referring Unavailable BASHIR, RON Referring Unavailable MIKAYLA, TRANG Referring Unavailable MIKAYLA, TRANG Referring Unavailable MIKAYLA, TRANG Referring Unavailable MIKAYLA, TRANG Referring Unavailable MIKAYLA, TRANG Referring Unavailable MOUKARBELADAN Attending Unavailable MIKAYLA, TRANG Referring Unavailable MIKAYLA, TRANG Attending Unavailable LORI, ENRRIQUE Attending Unavailable LORIENRRIQUE Attending Unavailable MIKAYLA, TRANG Referring Unavailable MIKAYLA, TRANG Referring Unavailable MIKAYLA, TRANG Attending Unavailable MIKAYLA, TRANG Referring Unavailable BASHIR, RON Referring Unavailable MIKAYLA, TRANG Referring Unavailable BASHIR, RON Referring Unavailable MIKAYLA, TRANG Referring Unavailable MIKAYLA, RTANG Referring Unavailable MIKAYLA, TRANG Referring Unavailable BASHIR, RON Referring Unavailable MIKAYLA, TRANG Referring Unavailable MIKAYLA, TRANG Referring Unavailable MIKAYLA, TRANG Referring Unavailable Allergies Allergy ClassificationReported Allergen(s)Allergy TypeDate of OnsetReaction(s) Facility (3 sources)black walnut pollen extract; Translations: [LKPHGOT-PFW-UVN REDUCTASE INHIBITORS]Drug Svrrzqt73-72-8631[facility] (20 sources)traMADol; Translations: [TRAMADOL]Drug Opdvnrz70-21-1086TvikdueDsyNorwalk Memorial Hospital Repository (20 sources)Kfjjguz-BCN-IgS Reductase Inhibitor; Translations: [Intfuav-XUE-NsD Reductase Inhibitor]Allergy to ukjaszlnb24-57-7485Relgkk [facility] (13 sources)AlbuterolDrug AllergyUnkSection 101[facility] [employer] Other (17 sources)ezetimibeDrug AllergyYik YakHermann Area District Hospital [employer] Other (13 sources)HMG-CoA reductase inhibitorDrug allergyCranston General Hospital [employer] Other (19 sources)NiacinDrug AllergyVISUAL NACERTEleanor Slater Hospital [employer] Other (20 sources)SimvastatinDrug Fnuvzrg17-33-4059Cexzkit, Unknown [facility] (8 sources)Statins Depletion *DIETARY PRODUCTS/DIETARY MANAGEPropensity to adverse reactionsNortheast [facility] [employer] Other (4 sources)Allergies ReconciledPropensity to adverse reactionsNortheast [facility] [employer] Other (8 sources)Albuterol *ANTIASTHMATIC AND BRONCHODILATOR AGENTSPropensity to adverse reactionsComment:coughing more with [facility] [employer] Other (4 sources)patient allergy list reviewed by nurse or physiciaPropensity to adverse pjcsuclcr47-64-4737Tfwtehf:[facility] [employer] Other (20 sources)NiacinDrug Txfpdby10-41-8429Rbcomub, Unknown Reaction, itching [facility] (5 sources)HMG-CoA reductase inhibitorPropensity to adverse reactions to drug 03-79-8848Cl[address] [place] [address] (1 source)SimvastatinDrug Ssoffbo21-75-8483HwygtimxiAvita [facility] Repository (1 source)traMADolDrug Jsbkvbe72-42-4174TdndiufmyAvita [facility] System [facility] Repository Medications Current Medications MedicationDrug Class(es)DatesSig (Normalized)Sig (Original)ascorbic acid 500 mg oral tablet (20 sources)Vitamin CStart: 12-27-2024 End: 58-04-7872lssf 1 tablet by mouth once dailyAscorbic Acid (Vitamin C) (Vitamin C) 500 mg Tablet Active 500 MG PO Daily 90 January 10, 2025 8:45am Complies with drug therapytake 1 tablet by mouth once dailyAscorbic Acid (vitamin C) 250 MG tablet Take 250 mg by mouth Daily ActiveAspir-81 (7 sources)Aspir-81 Activecalcium carbonate 1500 mg / cholecalciferol 800 unt chewable tablet (20 sources)Vitamin DStart: 71-38-5607lcdr 1 tablet by mouth once dailyCalcium Carbonate-Vitamin D3 (Caltrate 600 Plus D) 600 mg-20 mcg (800 unit) tablet,chewable Active 1 TAB PO Daily January 20, 2025 12:00am Complies with drug therapyStart: 18-42-0311Byldd: 12-27-2024 End: 19-61-8432eqmj 1 tablet by mouth once at mealtimeCalcium Carbonate-Vitamin D3 (Oyster Shell Calcium-Vit D3) 500 mg-5 mcg (200 unit) Tablet Discontinued 1 TAB PO 3x/Day with meals January 10, 2025 8:45am January 20, 2025 11:07am Calcium Carbonate / Vitamin D (6 sources)Calcium Carbonate-Vitamin D (CALTRATE 600+D PO) Take by mouth Active Calcium Carbonate-Vitamin D3 (Oyster Shell Calcium-Vit D3) 500 mg-5 mcg (200 unit) Tablet (1 source)Start: 81-92-3149kgcd 1 tablet by mouth once at mealtimeCalcium Carbonate-Vitamin D3 (Oyster Shell Calcium-Vit D3) 500 mg-5 mcg (200 unit) Tablet Active 1 TAB PO 3x/Day with meals December 27, 2024 12:00amContour Next Test - (17 sources)Contour Next Test - as directed In Vitro Activeezetimibe 10 mg oral tablet (20 sources)Dietary Cholesterol Absorption InhibitorStart: 03-03-2023 End: 50-14-9095mlyz 1 tablet by mouth once dailyEzetimibe 10 mg tablet Active 10 MG PO Daily March 01, 2024 12:00am Complies with drug therapyferrous sulfate 324 mg delayed release oral tablet (20 sources)Start: 37-71-0147fkju 1 tablet by mouth once dailyFerrous Sulfate 324 mg (65 mg iron) Tablet,Delayed Release (Dr/Ec) Active 324 MG PO Daily January 10, 2025 12:00am Complies with drug therapyStart: 12-15-2023 End: 07-13-0855qbqx 1 tablet by mouth once dailyFerrous Sulfate 325 mg (65 mg iron) tablet,delayed release (DR/EC) Discontinued 325 MG PO Daily December 15, 2023 1:00am March 01, 2024 11:17amStart: 06-09-2021 End: 73-64-3374hfxw 1 tablet by mouth once dailyFerrous Sulfate 324 mg (65 mg iron) Tablet,Delayed Release (Dr/Ec) Discontinued 324 MG PO Daily June 09, 2021 12:00am July 21, 2022 8:06amtake 1 tablet by mouth once daily Ferrous Sulfate 325 (65 Fe) MG 1 tablet Orally Once a day Active Tjxatqhaeik-Qcfhvijri-Hgergd (Trelegy Ellipta) 200-62.5-25 MCG/ACT aerosol powder (20 sources)Latwhwibbts-Myfgltfhx-Pmmrme (Trelegy Ellipta) 200-62.5-25 MCG/ACT aerosol powder Inhale WixotbAjatobicegl-Tfrobbxkt-Nivyxjkl (7 sources)Start: 84-29-2067Vrqrk: 43-63-5370Jbihkxcsdjx-Umeclidin-Vilanter (Trelegy Ellipta) 200-62.5-25 mcg blister with device Active 0 .ROUTE .COMPLEX 180 March 07, 2025 1:09pm USE 1 INHALATION BY MOUTH DAILY Complies with drug therapyStart: 63-72-0450rvqwbvceir 40 mg oral tablet (20 sources)Loop DiureticStart: 04-17-2025 End: 67-39-7602sssa 1 tablet by mouth once daily in the morningFurosemide (Lasix) 40 mg tablet Active 40 MG PO Every morning April 17, 2025 4:21pm Complies with drug therapyStart: 02-28-2025 End: 92-35-2524Iiyshpvqtn 80 mg tablet Discontinued 40 MG PO Daily February 28, 2025 1:00pm April 17, 2025 4:20pmStart: 01-10-2025 End: 69-08-4951mhsr 1 tablet by mouth once dailyFurosemide 40 mg Tablet Discontinued 40 MG PO Daily at 0800 90 90 January 10, 2025 12:00am January 20, 2025 11:08amStart: 10-05-2023 End: 12-13-1786ohvp 1 tablet by mouth once dailyFurosemide 80 mg tablet Discontinued 80 MG PO Daily January 20, 2025 12:00am February 28, 2025 1:03pm hydrALAZINE hydrochloride 25 mg oral tablet (20 sources)Arteriolar VasodilatorStart: 21-44-7631xqsw 2 tablets by mouth three times dailyHydralazine 25 mg tablet Active 50 MG PO Three times daily July 08, 2025 9:32am Complies with drug therapyStart: 04-17-2025 End: 11-45-4703cvpn 1 tablet by mouth twice dailyHydralazine 25 mg tablet Discontinued 25 MG PO Twice daily April 17, 2025 12:00am July 08, 2025 9:32amStart: 04-07-2025 End: 07-99-1289nvvl 2 tablets by mouth twice dailyHydralazine 10 mg tablet Discontinued 20 MG PO Twice daily April 07, 2025 8:59am April 17, 2025 4:19pm Start: 02-25-2025 End: 89-81-2430hgun 1 tablet by mouth twice dailyHydralazine 10 mg tablet Discontinued 10 MG PO Twice daily February 28, 2025 1:01pm April 07, 2025 9:00am Start: 06-09-2021 End: 56-78-6380hoyi 1 tablet by mouth three times dailyHydralazine 100 mg tablet Discontinued 100 MG PO Three times daily 90 June 09, 2021 12:00am February 28, 2025 1:01pm On Hold: Resume on 01/24/25. hold until resumed by PCP or nephrologyStart: 06-09-2021 End: 77-63-1935bfix 2 tablets by mouth three times dailyHydralazine 50 mg Tablet Discontinued 100 MG PO Three times daily 0 June 09, 2021 12:00am August 02, 2021 1:38pmStart: 06-09-2021 End: 04-21-4171iavh 100 mg by mouth three times dailyHydralazine Discontinued 100 MG PO Three times daily 0 June 09, 2021 12:00am August 0211:38pm isosorbide dinitrate 10 mg oral tablet (20 sources)Nitrate VasodilatorStart: 62-83-2515hxvj 1 tablet by mouth three times dailyIsosorbide Dinitrate 10 mg tablet Active 10 MG PO Three times daily July 08, 2025 9:32am allow nitrate-free interval of 12-14 hrs per 24-hr period Complies with drug therapyStart: 04-07-2025 End: 49-08-6253lphf 1 tablet by mouth twice dailyIsosorbide Dinitrate 10 mg tablet Discontinued 10 MG PO Twice daily April 07, 2025 12:00am July 08, 2025 9:32am allow nitrate-free interval of 12-14 hrs per 24-hr period Start: 07-21-2022 End: 59-60-5194qqgd 1 tablet by mouth three times dailyIsosorbide Dinitrate 10 mg tablet Discontinued 10 MG PO Three times daily July 21, 2022 12:00amApril 07, 2025 9:16am On Hold: Resume on 01/24/25. hold until resumed by PCP or nephrologyStart: 06-09-2021 End: 49-97-1757vsoe 1 tablet by mouth three times dailyIsosorbide Dinitrate 10 mg Tablet Discontinued 10 MG PO Three times daily June 09, 2021 12 :00am August 31, 2021 9:56amlevothyroxine sodium 0.05 mg oral tablet (20 sources)l-ThyroxineStart: 07-01-2025 End: 23-02-6613tccq 1 tablet by mouth once dailyLevothyroxine 50 mcg tablet Active 50 MCG PO Daily July 08, 2025 9:41am Complies with drug therapyStart: 02-20-2025 End: 92-23-3850imrz 1 tablet by mouth once dailyLevothyroxine 25 mcg tablet Discontinued 25 MCG PO Daily May 19, 2025 4:58pm July 01, 2025 1:03pmlevothyroxine (Tirosint) 25 MCG capsule Take by mouth in the morning. Take before meals. Vmkzht18 hr metoprolol succinate 100 mg extended release oral tablet (20 sources)beta-Adrenergic BlockerStart: 54-40-8871iswn 1 tablet by mouth once dailyMetoprolol Succinate 100 mg tablet extended release 24 hr Active 100 MG PO Daily January 20, 2025 12:00am Complies with drug therapyStart: 01-10-2025 End: 00-06-6415cmae 1 tablet by mouth once dailyMetoprolol Succinate 25 mg Tablet Extended Release 24 Hr Discontinued 25 MG PO Daily January 10, 2025 12:00am January 20, 2025 11:09amStart: 12-15-2023 End: 89-61-4333buss 1 tablet by mouth once dailyMetoprolol Succinate 100 mg tablet extended release 24 hr Discontinued 100 MG PO Daily December 15, 2023 1:00am January 10, 2025 8:46amStart: 08-02-2021 End: 33-50-9687Ksozkxzxyv Succinate 50 mg tablet extended release 24 hr Discontinued 100 MG PO Daily July 12:00am December 15, 2023 2:46pm Start: 08-02-2021 End: 21-83-5153xfwa 100 mg by mouth once dailyMetoprolol Succinate Discontinued 100 MG PO Daily August 02, 2021 12:00am December 15, 2023 2:46pmStart: 06-09-2021 End: 58-63-6122djig 1 tablet by mouth once dailyMetoprolol Succinate 25 mg Tablet Extended Release 24 Hr Discontinued 25 MG PO Daily June 09, 2021 12:00am August 02, 2021 1:37pmtake 2 tablets by mouth every twenty-four hours in the morningmetoprolol succinate XL (TOPROL-XL) 50 mg 24 hr tablet Take 2 tablets (100 mg total) by mouth in the morning. Activeniacin 500 mg oral tablet (20 sources)Nicotinic AcidStart: 53-70-8216ybzx 1 tablet by mouth once daily Niacin 500 mg Tablet Active 500 MG PO Daily June 09, 2021 12:00am Complies with drug therapypaxlovid (300/100) 20 x 150 mg & 10 x 100mg tablet therapy pack (2 sources)Start: 33-50-6313gwtk 3 tablets by mouth every twelve hoursPaxlovid (300/100) 20 x 150 MG & 10 x 100MG 3 tablets Orally Twice a day for 5 day(s) Dec, Activemicroencapsulated potassium chloride 10 meq extended release oral tablet (20 sources)Start: 01-28-2025 End: 34-89-7259ciid 1 tablet by mouth once dailyPotassium Chloride 10 mEq tablet,ER particles/crystals Active 10 MEQ PO daily April 0759:17am Complies with drug therapyStart: 10-15-2024 End: 38-22-3336ovkn 1 tablet by mouth once dailyPotassium Chloride 10 mEq tablet,ER particles/crystals Discontinued 0 .ROUTE .COMPLEX October 15, 2024 3:36pm January 10, 2025 8:38am TAKE 1 TABLET BY MOUTH DAILYStart: 06-09-2021 End: 54-32-9950Nxfkxznlc Chloride (Klor-Con 10) 10 mEq Tablet Extended Release Discontinued 10 MEQ PO Daily June 09, 2021 12:00am October 15, 2024 3:36pmPotassium Chloride 10 mEq tablet,ER particles/crystals (2 sources)Start: 48-31-1211qrjo 1 tablet by mouth once dailyPotassium Chloride 10 mEq tablet,ER particles/crystals Active 0 .ROUTE .COMPLEX 90 October 15, 2024 3:36pm TAKE 1 TABLET BY MOUTH DAILYrivaroxaban 15 mg oral tablet (12 sources)Factor Xa InhibitorStart: 26-02-8130jlmb 1 tablet by mouth once daily at dinnerRivaroxaban (Xarelto) 15 mg tablet Active 15 MG PO Daily April 07, 2025 12:00am must administer with evening meal Complies with drug therapy TRELEGY ELLIPTA 200-62.5-25 mcg blister with device (5 sources)Start: 71-51-9677sppe 1 puff(s) by inhalation in the morningTRELEGY ELLIPTA 200-62.5-25 mcg blister with device Inhale 1 puff in the morning. 02/22/2023 ActiveVitamin D3 125 MCG (5000 UT) (15 sources)take 4 tablets by mouth once dailyVitamin D3 125 MCG (5000 UT) 4 tablet Orally Once a day Active{20 (nirmatrelvir 150 MG Oral Tablet) / 10 (ritonavir 100 MG Oral Tablet) } Pack [Paxlovid 5-Day] (12 sources)Start: 98-91-9533cdzy 3 tablets by mouth every twelve hoursPaxlovid (300/100) 20 x 150 MG & 10 x 100MG 3 tablets Orally Twice a day for 5 day(s) Dec, Active (20 sources)Start: 34-89-4475Cztje: 01-20-2025 End: 92-65-2821Hkdfr: 01-10-2025 End: 00-34-4401Soqpk: 87-01-9800Xgnor: 12-27-2024 End: 31-88-0227Jbdzw: 09-51-8691Ftwqz: 12-27-2024 End: 94-84-4332Ldobc: 10-15-2024 End: 77-03-1780Lbytm: 13-40-2137Jedyh: 08-02-2021 End: 13-60-4117Dsvio: 06-09-2021 End: 81-68-5519Qtpdt: 06-09-2021 End: 08-02-2021 Completed/Discontinued Medications MedicationDrug Class(es)DatesSig (Normalized)Sig (Original)acetaminophen 500 mg oral tablet (20 sources)Start: 01-10-2025 End: 19-67-3054xdgx 1 tablet by mouth every four hours as needed for pain Acetaminophen 500 mg Tablet Discontinued 500 MG PO Q4H as needed for Pain 0 January 10, 2025 12:00am January 28, 2025 2:33pmStart: 08-12-2024 End: 17-68-4300vjid 2 tablets by mouth every eight hours as needed for pain Acetaminophen (Acetaminophen Extra Strength) 500 mg tablet Discontinued 1000 MG PO Every 8 hours asneeded for pain August 12, 2024 12:00am January 10, 2025 8:46amStart: 06-09-2021 End: 81-16-2574vpvv 1 tablet by mouth every six hours as needed for pain Acetaminophen 500 mg Tablet Discontinued 500 MG PO Q6H as needed for Pain 120 June 09, 2021 12:00am July 14, 2021 8:42amacetaminophen 325 mg / HYDROcodone bitartrate 5 mg oral tablet (20 sources)Opioid AgonistStart: 08-22-2021 End: 12-37-3096gimy 1 tablet by mouth every six hours as needed for pain Hydrocodone-Acetaminophen 5-325 mg Tablet Discontinued 1 TAB PO Q6H as needed for Pain 28 August 22, 2021 August 31, 2021 9:56amStart: 08-22-2021 End: 67-03-4463zcehktbod 0.83 mg/ml inhalation solution (16 sources)beta2-Adrenergic AgonistStart: 12-27-2024 End: 73-56-5234drxe 2.5 mg by inhalation every two hours as neededAlbuterol Sulfate 2.5 mg /3 mL (0.083 %) Solution For Nebulization Discontinued 2.5 MG INHALATION Q2H as needed for Shortness Of Breath December 27, 2024 12:00am January 10, 2025 8:46amStart: 12-27-2024 End: 12-42-6866sfsvoddavju 100 mg oral tablet (20 sources)Xanthine Oxidase InhibitorStart: 06-09-2021 End: 88-25-3237jqng 1 tablet by mouth once dailyAllopurinol 100 mg tablet Discontinued 100 MG PO Daily June 05, 2024 10:39pm January 10, 2025 8:45amamiodarone hydrochloride 200 mg oral tablet (20 sources)AntiarrhythmicStart: 09-16-2024 End: 09-54-6402fwhw 1 tablet by mouth once dailyAmiodarone 200 mg tablet Discontinued 200 MG PO Daily 90 90 January 10, 2025 8:45am April 17, 2025 4:18pm amLODIPine 10 mg oral tablet (20 sources)Dihydropyridine Calcium Channel BlockerStart: 01-28-2025 End: 02-04-4433rgbh 1 tablet by mouth once dailyAmlodipine 10 mg tablet Discontinued 10 MG PO Daily January 28, 2025 12:00am April 17, 2025 4:20pm On Hold: NoneStart: 01-20-2025 End: 89-21-0113pkey 1 tablet by mouth once dailyAmlodipine 10 mg tablet Discontinued 10 MG PO Daily January 20, 2025 12:00am January 20, 2025 11:25am Start: 07-21-2022 End: 39-31-4906dizl 1 tablet by mouth once dailyAmlodipine 10 mg tablet Discontinued 10 MG PO Daily July 21, 2022 12:00am January 10, 2025 8:46am Start: 08-02-2021 End: 43-83-8691swgq 1 tablet by mouth once dailyAmlodipine 10 mg tablet Discontinued 10 MG PO Daily August 02, 2021 12:00am August 31, 2021 9 :54amStart: 06-09-2021 End: 05-85-5923evic 1 tablet by mouth once dailyAmlodipine 5 mg Tablet Discontinued 5 MG PO Daily June 09, 2021 12:00am August 02, 2021 1:35pmamoxicillin 500 mg / clavulanate 125 mg oral tablet (16 sources)Penicillin-class AntibacterialStart: 12-27-2024 End: 19-08-1469cxle 1 tablet by mouth twice dailyAmoxicillin-Pot Clavulanate 500-125 mg Tablet Discontinued 1 TAB PO Twice daily 4 2 December 27, 2024 12:00am January 10, 2025 8:46amStart: 12-27-2024 End: 07-38-6873Qkeko Ellipta (20 sources)Start: 08-02-2021 End: 83-02-9601qkwy 62.5 ug by inhalation once dailyAnoro Ellipta Discontinued 62.5 MCG INHALATION Daily August 02, 2021 1:40pm March 03, 2023 1:44pmStart: 08-02-2021 End: 69-78-9324rvvw 62.5 ug by inhalation once dailyAnoro Ellipta Discontinued 62.5 MCG INHALATION Daily August 02, 2021 12:40pm March 03, 2023 12:44pm Start: 32-56-1277joqz 62.5 ug by inhalation once dailyAnoro Ellipta Active 62.5 MCG INHALATION Daily August 02, 2021 12:40pmStart: 08-26-6968vvbs 62.5 ug by inhalation once dailyAnoro Ellipta Active 62.5 MCG INHALATION Daily August 02, 2021 1:40pmStart: 06-09-2021 End: 82-61-9253xify 62.5 ug by inhalation once dailyAnoro Ellipta Discontinued 62.5 mcg inhalation Daily 0 June 08, 2021 11:00pm August 02700982:40pm Start: 06-09-2021 End: 37-54-5544hbbz 62.5 ug by inhalation once dailyAnoro Ellipta Discontinued 62.5 mcg inhalation Daily 0 June 09, 2021 12:00am August 0211:40pm apixaban 2.5 mg oral tablet (20 sources)Factor Xa InhibitorStart: 03-03-2023 End: 15-44-2144sydb 1 tablet by mouth twice dailyApixaban (Eliquis) 2.5 mg Tablet Discontinued 2.5 MG PO Twice daily 180 90 January 10, 2025 12:00amJune 2024 8:59amStart: 37-33-3184efsa 1 tablet by mouth in the morning, then take 1 tablet by mouth at bedtimeapixaban (ELIQUIS) 5 mg tablet Take 1 tablet (5 mg total) by mouth in the morning and 1 tablet (5 mg total) before bedtime. 02/16/2023 Activeaspirin 325 mg oral tablet (20 sources)Platelet Aggregation Inhibitor, Nonsteroidal Anti-inflammatory Drug Start: 12-15-2023 End: 21-57-5902ikuu 1 tablet by mouth once dailyAspirin 325 mg tablet Discontinued 325 MG PO Daily December 15, 2023 1:00am December 15, 2023 2:44pmStart: 02-25-2022 End: 36-71-2835nfgw 1 tablet by mouth once dailyAspirin 81 mg Tablet,Delayed Release (Dr/Ec) Discontinued 81 MG PO Daily February 25, 2022 12:00am September 01, 2023 2:51pmStart: 06-09-2021 End: 79-39-2156tasp 1 tablet by mouth once dailyAspirin 81 mg Tablet,Delayed Release (Dr/Ec) Discontinued 81 MG PO Daily June 09, 2021 12:00am August 02, 2021 1:37pmtake 1 tablet by mouth once daily as neededAspirin 325 mg 325 mg one tab orally daily Not-Taking/PRNtake 1 tablet by mouth once daily Aspirin 325 mg 325 mg one tab orally daily Not-Takingazithromycin 250 mg oral tablet (16 sources)Macrolide AntimicrobialStart: 12-27-2024 End: 94-79-5718seuv 2 tablets by mouth every twenty-four hoursAzithromycin 250 mg Tablet Discontinued 500 MG PO Q24H 4 2 December 27, 2024 12:00am January 10, 2025 8:46ambenazepril hydrochloride 40 mg oral tablet (20 sources)Angiotensin Converting Enzyme InhibitorStart: 12-15-2023 End: 60-06-2383ykwy 1 tablet by mouth once dailyBenazepril 40 mg tablet Discontinued 40 MG PO Daily December 15, 2023 1:00am September 09, 2024 10:33am Budesonide (20 sources)CorticosteroidStart: 12-15-2023 End: 48-99-8741Urang: 12-15-2023 End: 25-47-7113uxop 180 ug by inhalation twice dailyBudesonide 180 mcg/actuation aerosol powdr breath activated Discontinued 180 MCG INHALATION Twice daily December 15, 2023 1:00am February 15, 2024 11:22pmStart: 12-15-2023 End: 81-08-1083ubyi 180 ug by inhalation twice dailyBudesonide Discontinued 180 MCG INHALATION Twice daily December 15, 2023 1:00am February 15, 2024 11:22pmStart: 08-02-2021 End: 48-23-3617Bqosm: 08-02-2021 End: 92-54-4214Ihnmnijant (Pulmicort Flexhaler) 180 mcg/actuation aerosol powdr breath activated Discontinued 360 MCG INHALATION Twice daily August 02, 2021 12:00am March 03, 2023 1:44pmStart: 08-02-2021 End: 05-91-1370Bkdmehhfyz (Pulmicort Flexhaler) 180 mcg/actuation aerosol powdr breath activated Discontinued 360 MCG INHALATION Twice daily August 01, 2021 11:00pm March 03, 2023 12:44pmStart: 08-79-8496Aapitlkgtl (Pulmicort Flexhaler) 180 mcg/actuation aerosol powdr breath activated Active 360 MCG INHALATION Twice daily August 01, 2021 11:00pmStart: 98-12-5491Gkqoelyflo (Pulmicort Flexhaler) 180 mcg/actuation aerosol powdr breath activated Active 360 MCG INH ALATION Twice daily August 02, 2021 12:00amStart: 06-09-2021 End: 39-16-7098clbg 360 ug by inhalation twice dailyBudesonide Inhalation Discontinued 360 mcg inhalation Twice daily 0 June 08, 2021 11:00pm August 02, 2021 12:40pmStart: 06-09-2021 End: 32-61-7947ssdj 360 ug by inhalation twice dailyBudesonide Inhalation Discontinued 360 mcg inhalation Twice daily 0 June 09, 2021 12:00am August 02, 2021 1:40pmStart: 06-01-2021 End: 35-08-5202Xwmsk: 06-01-2021 End: 87-22-9525wfgv 180 ug by inhalation twice dailyBudesonide (Pulmicort Flexhaler) 180 mcg/actuation Aerosol Powdr Breath Activated Discontinued 2 INH INHALATION Twice daily May 31, 2021 11:00pm June 09, 2021 11:48amStart: 06-01-2021 End: 43-34-0241ignf 180 ug by inhalation twice dailyBudesonide (Pulmicort Flexhaler) 180 mcg/actuation Aerosol Powdr Breath Activated Discontinued 2 INH INHALATION Twice daily June 01, 2021 12:00am June 09, 2021 12:48pmtake 1 puff(s) by inhalation twice dailyPulmicort Flexhaler 180 MCG/ACT 1 puff Inhalation Twice a day ActivePulmicort Not-Taking/PRNPulmicort Not-Taking bumetanide 1 mg oral tablet (20 sources)Loop DiureticStart: 06-09-2021 End: 02-66-5348Ikrghgbwxs 1 mg Tablet Discontinued 1 MG PO Q48H 15 June 09, 2021 12:00am August 0211:40pmStart: 06-09-2021 End: 94-76-5346yvsd 1 tablet by mouth once dailyBumetanide 1 mg tablet Discontinued 2 MG PO Daily December 15, 2023 2:39pm December 18, 2023 11:32amStart: 06-09-2021 End: 36-83-1081dsys 2 mg by mouth once dailyBumetanide Discontinued 2 MG PO Daily December 15, 2023 2:39pm December 18, 2023 11:32am End: 95-62-5600hmqj 1 tablet by mouth once dailybumetanide (Bumex) 2 MG tablet Take 2 mg by mouth Daily 05/26/2025 Discontinued (Discontinued by another clinician)Bumex 1 MG 2 Orally Once a day Activecarvedilol 25 mg oral tablet (17 sources)alpha-Adrenergic [place], beta-Adrenergic BlockerCarvedilol 25 MG Orally Not-Taking/PRNcefTRIAXone 2000 mg injection (20 sources)Cephalosporin AntibacterialStart: 06-09-2021 End: 03-13-1994poju 2 g intravenously every twenty-four hoursCeftriaxone 2 gram Recon Soln Discontinued 2 GM IV Q24H 0 June 09, 2021 12:00am July 14, 2021 8:41amcephalexin 500 mg oral capsule (7 sources)Cephalosporin AntibacterialStart: 03-25-2025 End: 51-08-9127pujf 1 capsule by mouth twice dailyCephalexin 500 mg capsule Discontinued 500 MG PO Twice daily 14 March 25, 2025 12:00am April 07, 2025 8:54amcholecalciferol 0.125 mg oral tablet (20 sources)Vitamin DStart: 12-15-2023 End: 77-90-7825tpjo 1 tablet by mouth once dailyCholecalciferol (Vitamin D3) 125 mcg (5,000 unit) tablet Discontinued 5000 UNIT PO Daily December 1:00am January 10, 2025 8:46amStart: 06-09-2021 End: 40-23-5065hzbu 1 capsule by mouth once dailyCholecalciferol (Vitamin D3) 125 mcg (5,000 unit) Capsule Discontinued 125 MCG PO Daily June 09, 2021 12:00am December 15, 2023 2:47pmtake 1 tablet by mouth in the morning cholecalciferol, vitamin D3, 5,000 units tablet Take 1 tablet (5,000 Units total) by mouth in the morning. ActivecloNIDine hydrochloride 0.1 mg oral tablet (17 sources)Central alpha-2 Adrenergic Agonisttake 1 tablet by mouth every twenty-four hourscloNIDine HCl 0.1 MG 1 tablet at bedtime Orally Once a day Not-Taking/PRNdocusate sodium 100 mg oral capsule (16 sources)Start: 12-27-2024 End: 49-71-8554bmsi 1 capsule by mouth twice dailyDocusate Sodium 100 mg Capsule Discontinued 100 MG PO Twice daily 60 December 27, 2024 12:00am 2024 8:72jvVgeutbiczsc-Mqvtgkzbd-Altclsxo (19 sources)Start: 02-15-2024 End: 10-91-0305Uwymtnluebm-Umeclidin-Vilanter (Trelegy Ellipta) 200-62.5-25 mcg blister with device Discontinued 1INH INHALATION Daily February 15, 2024 12:00am March 07, 2025 1:09pmStart: 02-15-2024 End: 99-59-8675Fvryd: 53-21-9954Vuqgh: 23-62-4942Cmpghaeqxyf-Umeclidin-Vilanter (Trelegy Ellipta) 200-62.5-25 mcg blister with device Active 1 INH INHALATION Daily February 15, 2024 12:00amlidocaine 0.04 mg/mg medicated patch (20 sources)Antiarrhythmic, Amide Local AnestheticStart: 06-09-2021 End: 09-85-5590fsunr 1 dose topically once dailyLidocaine (Lidocaine Pain Relief) 4 % Adhesive Patch,Medicated Discontinued 2 PATCH TOPICAL Daily June 09, 2021 12:00am July 14, 2021 8:41amlinagliptin 5 mg oral tablet (17 sources)Dipeptidyl Peptidase 4 Inhibitortake 1 tablet by mouth every twenty- four hoursTradjenta 5 MG 1 tablet Orally Once a day Not-Taking/PRNlosartan potassium 25 mg oral tablet (19 sources)Angiotensin 2 Receptor BlockerStart: 08-08-2024 End: 60-20-4955hvah 1 tablet by mouth once dailyLosartan 25 mg tablet Discontinued 25 MG PO Daily August 12, 2024 12:00am April 07, 2025 9:17amOn Hold: Resume on 01/24/25. hold until resumed by PCP or nephrologymethIMAzole 10 mg oral tablet (20 sources)Thyroid Hormone Synthesis InhibitorStart: 04-22-2024 End: 39-76-7717hsrw 5 mg by mouth every other dayMethimazole 10 mg tablet Discontinued 5 MG PO .every other day August 12, 2024 12:00am September 16, 2024 6:32pmStart: 01-15-8894ebza 5 mg by mouth every other dayMethimazole Active 5 MG PO .QOD 08 14April 22, 2024 11:06amStart: 04-17-2024 End: 49-44-8843qlzj 0.5 tablet by mouth once dailyMethimazole 10 mg tablet Discontinued 0 .ROUTE .COMPLEX April 17, 2024 5:53pm April 22, 2024 11:07am take 1/2 tablet by mouth once daily for 30 DAYSStart: 02-08-2024 End: 97-26-0082jtzb 0.5 tablet by mouth every other daymethIMAzole (TAPAZOLE) 10 mg tablet Take 0.5 tablets (5 mg total) by mouth every other day. 02/08/2024 ActiveStart: 02-01-2024 End: 80-46-8978xygb 5 mg by mouth every other dayMethimazole Discontinued 5 MG PO .QOD February 01, 2024 3:47pm April 17, 2024 5:53pmStart: 12-15-2023 End: 30-50-5463veqa 5 mg by mouth every other dayMethimazole 10 mg tablet Discontinued 5 MG PO .QOD February 01, 2024 3:47pm April 17, 2024 5:53pmStart: 12-15-2023 End: 35-39-6838mlqs 5 mg by mouth once dailyMethimazole 10 mg tablet Discontinued 5 MG PO Daily December 15, 2023 1:00am February 01, 2024 3:47pmStart: 12-15-2023 End: 75-99-0687mkxl 5 mg by mouth once dailyMethimazole Discontinued 5 MG PO Daily December 15, 2023 1:00am February 01, 2024 3:47pmStart: 68-17-0969zrhy 0.5 tablet by mouth once dailymethIMAzole 10 MG 1/2 tablet Orally Once a day Sep, ActiveStart: 02-25-2022 End: 06-71-1347sfxg 4 tablets by mouth twice dailyMethimazole 5 mg Tablet Discontinued 20 MG PO Twice daily February 25, 2022 12:00am December 15, 2023 2:46pm Start: 02-25-2022 End: 02-18-5228fhoy 20 mg by mouth twice dailyMethimazole Discontinued 20 MG PO Twice daily February 25, 2022 12:00am December 15, 2023 2:46pm End: 88-07-0834cntb 1 tablet by mouth in the morning, then take 1 tablet by mouth in the evening, then take 1 tablet by mouth at bedtimemethIMAzole (Tapazole) 10 MG tablet Take 10 mg by mouth in the morning and 10 mg in the evening and10 mg before bedtime. 05/26/2025 Discontinued (Discontinued by another clinician)Multivitamin With Folic Acid (Thera) 400 mcg Tablet (7 sources)Start: 12-27-2024 End: 62-20-0527lbbh 1 tablet by mouth once dailyMultivitamin With Folic Acid (Thera) 400 mcg Tablet Discontinued 1 TAB PO Daily December 272:00am January 28, 2025 2:35pmStart: 81-05-8371fbrf 1 tablet by mouth once daily Multivitamin With Folic Acid (Thera) 400 mcg Tablet Active 1 TAB PO Daily December 27, 2024 12:00amoxyCODONE hydrochloride 5 mg oral tablet (20 sources)Opioid AgonistStart: 12-27-2024 End: 29-74-7056hewk 2 tablets by mouth every four hours as needed for pain Oxycodone 5 mg Tablet Discontinued 10 MG PO Every 4 hours as needed for Pain Scale 6 - 10 December 27, 2024 January 10, 2025 8:46amStart: 12-27-2024 End: 96-06-7342cgnn 1 tablet by mouth every four hours as needed for pain Oxycodone 5 mg Tablet Discontinued 5 MG PO Every 4 hours as needed for Pain Scale 1 - 5 2024January 10, 2025 8:46amStart: 06-09-2021 End: 30-72-9473ybyp 1 tablet by mouth every six hours as needed for pain Oxycodone 5 mg Tablet Discontinued 5 MG PO Q6H as needed for Pain 28 June 09, 2021 August 02, 2021 1:40pmStart: 06-09-2021 End: 43-45-5302sptsuvezxpfy glycol 3350 95045 mg powder for oral solution (20 sources)Osmotic LaxativeStart: 12-27-2024 End: 01-67-5019Njdcvywzrqba Glycol 3350 (Healthylax) 17 gram Powder In Packet Discontinued 17 GM PO Daily 2024 12:00am January 10, 2025 8:46am Start: 06-09-2021 End: 60-69-7211Fbzgqddgtndt Glycol 3350 (Miralax) 17 gram Powder In Packet Discontinued 17 GM PO Daily June 09, 2021 12:00am July 14, 2021 8:40ampropranolol hydrochloride 10 mg oral tablet (20 sources)beta-Adrenergic BlockerStart: 02-25-2022 End: 23-92-8427hefp 1 tablet by mouth three times dailyPropranolol (Inderal) 10 mg Tablet Discontinued 10 MG PO Three times daily February 25, 2022 12:00am July 21, 2022 8:06amTriamcinolone (20 sources)CorticosteroidStart: 52-30-6942Zgttzxf -40 mg Apr, 40 mg Start: 52-89-6516Qsvkmia -40 mg Apr, 40 mgStart: 71-03-7932Fccempn -40 mg Jan, 40 mg7 actuat umeclidinium 0.0625 mg/actuat / vilanterol 0.025 mg/actuat dry powder inhaler (20 sources)Anticholinergic, beta2-Adrenergic AgonistStart: 12-15-2023 End: 64-10-7421Ynkxrhqaxvgv-Vilanterol 62.5-25 mcg/actuation blister with device Discontinued 1 INH INHALATION Daily December 15, 2023 1:00am February 15, 2024 11:20pm Start: 12-15-2023 End: 87-14-1332Iohji Ellipta 62.5-25 MCG/ACT USE 1 INHALATION BY MOUTH DAILY ActiveAnoro Ellipta 62.5-25 MCG/ACT USE 1 INHALATION BY MOUTH DAILY Active Problems Active Problems Problem ClassificationProblemDateDocumented DateEpisodic/ChronicAcute and unspecified renal failure (20 sources)Acute kidney failure with tubular necrosis; Translations: [Acute renal failure syndrome]Onset: 555441-85-8867CokrklwsSwzcd posthemorrhagic anemia (20 sources)Acute posthemorrhagic anemia; Translations: [Acute posthemorrhagic anemia]33-89-1471BoxahofyFuxfisnpaimrue/social admission (20 sources)Other reduced mobility; Translations: [Impaired mobility and activities of daily living]Onset: 582655-47-5211DofdusnaJmdneohkme pneumonitis; food/vomitus (20 sources)Aspiration pneumonia; Translations: [Pneumonitis due to inhalation of food and vomit]Onset: 193949-89-4702FcddrjwkTrmbxg (4 sources)Uncomplicated moderate persistent asthma; Translations: [Moderate persistent asthma, uncomplicated]ChronicBacterial infection; unspecified site (20 sources)Bacteremia caused by Gram-positive bacteria; Translations: [Bacteremia]Onset: 03-27-2018 Resolved: 698905-98-4982SampjaqnAsbmrq of colon (20 sources)Malignant tumor of colon; Translations: [Malignant neoplasm of colon, unspecified]Onset: 779004-67-3310WudjtobFljzdpb on above: Hemicolectomy 08/2021,Surveillance colonoscopy 07/2022 (repeat 2 years) Hemicolectomy 08/2021,Surveillance colonoscopy 07/2022, 2023 (repeat 2 years) Cardiac dysrhythmias (20 sources)Atrial fibrillation; Translations: [Unspecified atrial fibrillation] Onset: 638408-45-7720XekqmnoQeltfmw on above:hx ablationAblation - 10/2019Cardioversion - iV ICD 05/2023,DCCV - 10/2024,Chronic kidney disease (20 sources)Chronic kidney disease stage 3; Translations: [Stage 3 chronic kidney disease]Onset: 234836-00-7458LnrcoviLeozaon kidney disease (2 sources)Chronic kidney disease; Translations: [Chronic kidney disease, stage 3b]Onset: 91-21-5337Epzvcqr obstructive pulmonary disease and bronchiectasis (20 sources)Chronic obstructive lung disease; Translations: [Chronic obstructive pulmonary disease, unspecified]Onset: 605325-09-5767PlzjkogGlgjofbgpwrfp of surgical procedures or medical care (9 sources)Hypotension following procedure; Translations: [Postprocedural hypotension]10-47-0095MkwqkohfGwdbrnaiyw disorders (20 sources)Cardiac pacemaker in situ; Translations: [Presence of cardiac pacemaker]Onset: 968962-39-3323TcbaweaCnaoxozrjd heart failure; nonhypertensive (20 sources)Heart failure with reduced ejection fraction; Translations: [Unspecified systolic (congestive) heart failure]Onset: ChronicComment on above:Echo: LVEF 25%, RV reduced function, RVSP 61, SANJAY, mod MR - 02/2023Echo: LVEF 25%, RV reduced function, RVSP 61, SANJAY, mod MR - 02/2023,Echo: LVEF 20-25%, TRISH, normal RV size/function, RVSP 22 - oronary atherosclerosis and other heart disease (20 sources)Coronary arteriosclerosis; Translations: [Atherosclerotic heart disease of [place] coronary artery without angina pectoris]Onset: 03-09-2022 87-02-5896TfojojoDpgggufchb and other anemia (20 sources)Iron deficiency anemia; Translations: [Iron deficiency anemia, unspecified]08-40-5720YzqhybixKisykuktrh and other anemia (16 sources)Chronic anemia; Translations: [Anemia, unspecified]12-24-2024 EpisodicDiabetes mellitus with complications (20 sources)Hyperglycemia due to type 2 diabetes mellitus; Translations: [Type 2 diabetes mellitus with hyperglycemia]Onset: 29-57-8840JqtulttHuvlnteu mellitus without complication (15 sources)Type 2 diabetes mellitus; Translations: [Type 2 diabetes mellitus without complications]Onset: 325574-03-9385VemqzksCaucadses of lipid metabolism (20 sources)Hypercholesterolemia; Translations: [Pure hypercholesterolemia, unspecified]Onset: 740599-64-6810RfhmgkoNfsfeqlct hypertension (20 sources)Hypertensive disorder; Translations: [Essential (primary) hypertension]Onset: 771874-31-5433NazgpqaAlqlc and electrolyte disorders (7 sources)Hypokalemia; Translations: [Hypokalemia]EpisodicFracture of neck of femur (hip) (20 sources)Fracture of neck of femur; Translations: [Fracture of unspecified part of neck of unspecified femur, initial encounter for closed fracture]Onset: 730265-85-2069HxuusbsoRsbv and other crystal arthropathies (4 sources)Primary gout; Translations: [Acute gouty arthropathy]Onset: 87-00-6814QozxixdIhjqiosmjgl of prostate (8 sources)Lower urinary tract symptoms due to benign prostatic hypertrophy; Translations: [Benign prostatic hyperplasia with lower urinary tract symptoms] Onset: 37-92-1440KeayoyaWoipjcoykbqo with complications and secondary hypertension (20 sources)Chronic kidney disease due to hypertension; Translations: [Hypertensive chronic kidney disease withstage 1 through stage 4 chronic kidney disease, or unspecified chronic kidney disease]Onset: ChronicImmunizations and screening for infectious disease (4 sources)Vaccination given; Translations: [Encounter for immunization]Episodic Infective arthritis and osteomyelitis (except that caused by tuberculosis or sexually transmitted disease) (20 sources)Osteomyelitis of vertebra; Translations: [Osteomyelitis of vertebra, lumbar region] Resolved: 232042-45-9371AewgcvtExdmgwaiimddx mental health disorders (20 sources)Primary insomnia; Translations: [Primary insomnia]Onset: 07-08-2024 45-66-0164ArtidgpAsnnugo (3 sources)Onychomycosis; Translations: [Tinea unguium]68-71-6775Svlccckg Neoplasms of unspecified nature or uncertain behavior (6 sources)Neoplasm of colon; Translations: [Neoplasm of unspecified behavior of digestive system]95-19-4346ServxqooKqaoyouqwwh deficiencies (1 source)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; 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]Onset: 93-95-3742YbjgdyrXsgx wounds of extremities (3 sources)Tear of skin; Translations: [Laceration without foreign body of left forearm, initial encounter]76-07-2855UqwbrxakFetelletbopdaf (20 sources)Osteoarthritis of knee; Translations: [Unilateral primary osteoarthritis, left knee]ChronicOther and unspecified benign neoplasm (7 sources)History of polyp of colon; Translations: [Personal history of colonic polyps]EpisodicOther connective tissue disease (17 sources)History of arthroplasty of left knee; Translations: [Presence of left artificial knee joint]ChronicOther connective tissue disease (9 sources)History of repair of hip joint; Translations: [Presence of right artificial hip joint]02-74-5209SblqzvcOfmou connective tissue disease (12 sources)Presence of right artificial hip joint; Translations: [Hip joint replacement]Onset: 440692-51-5217CyvbzprKbntk connective tissue disease (20 sources)History of total replacement of right hip joint; Translations: [Presence of right artificial hip joint]20-81-5319HlrhctoTbnqz connective tissue disease (13 sources)History of hemiarthroplasty of right hip; Translations: [Presence of right artificial hip joint]27-84-8346YsvgmqgSybva connective tissue disease (20 sources)Iliopsoas abscess; Translations: [Psoas muscle abscess]08-31-2021 EpisodicOther connective tissue disease (20 sources)Trochanteric bursitis; Translations: [Trochanteric bursitis, left hip]44-75-2403DzewejhfCjpni connective tissue disease (3 sources)Trochanteric bursitis, left hip; Translations: [Enthesopathy of hip region]84-76-1311NnqihqivDvuzy connective tissue disease (7 sources)Trochanteric bursitis of left hip; Translations: [Trochanteric bursitis, left hip]45-74-1436MrgznkpbVwwmy diseases of kidney and ureters (20 sources)Secondary hyperparathyroidism; Translations: [Secondary hyperparathyroidism of renal origin]29-35-0926PbzvvlzTrbyp diseases of kidney and ureters (5 sources)Secondary hyperparathyroidism of renal origin; Translations: [Secondary hyperparathyroidism (of renal origin)]76-43-4477IvpruiiEtxgn diseases of veins and lymphatics (20 sources)Peripheral venous insufficiency; Translations: [Venous insufficiency (chronic) (peripheral)]56-11-0249UlcjieloYfhnr diseases of veins and lymphatics (1 source)Venous insufficiency (chronic) (peripheral)EpisodicOther ear and sense organ disorders (1 source)Sensorineural hearing loss, bilateral; Translations: [Sensorineural hearing loss, bilateral]17-94-7926NaezefdXkttm ear and sense organ disorders (1 source)Impacted cerumen of bilateral ears; Translations: [Impacted cerumen, bilateral]99-34-5903UxrmpqmyYoeyu gastrointestinal disorders (19 sources)Constipation; Translations: [Constipation, unspecified]08-31-2021 EpisodicOther gastrointestinal disorders (15 sources)Occult blood in stools; Translations: [Other fecal abnormalities] 69-68-4001AcblvjdoFxknk injuries and conditions due to external causes (4 sources)History of fall; Translations: [History of falling]EpisodicOther lower respiratory disease (4 sources)Dyspnea; Translations: [Other forms of dyspnea]EpisodicOther lower respiratory disease (6 sources)Snoring; Translations: [Snoring]69-21-6412SahtjhoaLzlnt lower respiratory disease (6 sources)Hypoxia; Translations: [Hypoxemia]90-45-1402OdpwqotmFigvu nervous system disorders (6 sources)Acute postoperative pain; Translations: [Other acute postprocedural pain]46-65-1273TwmdzlrtLyhvg non-traumatic joint disorders (20 sources)Hip pain; Translations: [Pain in left hip]28-17-3170ZtcalexvQsvpg nutritional; endocrine; and metabolic disorders (4 sources)Obesity; Translations: [Obesity, unspecified]ChronicOther nutritional; endocrine; and metabolic disorders (8 sources)Obese class I; Translations: [Body mass index 33.0-33.9, adult]Onset: 46-36-1867RuqpekoBlqkg nutritional; endocrine; and metabolic disorders (17 sources)Hyperuricemia; Translations: [Hyperuricemia without signs of inflammatory arthritis and tophaceous disease]EpisodicOther nutritional; endocrine; and metabolic disorders (4 sources)Overweight; Translations: [Overweight]EpisodicOther nutritional; endocrine; and metabolic disorders (4 sources)Hyperuricemia without signs of inflammatory arthritis and tophaceous disease; Translations: [Hyperuricemia without signs of inflammatory arthritis and tophaceous disease]EpisodicOther nutritional; endocrine; and metabolic disorders (1 source)Hyperuricemia without signs of inflammatory arthritis and tophaceous diseaseEpisodicOther nutritional; endocrine; and metabolic disorders (9 sources)H/O: thyroid disorder; Translations: [Personal history of other endocrine, nutritional and metabolic disease]60-08-7634ZtdbxjtfSqqus screening for suspected conditions (not mental disorders or infectious disease) (17 sources)Encounter for screening for malignant neoplasm of prostate; Translations: [Blood chemistry abnormal]Onset: 01-03-2023 Resolved: 99-85-9079GnuufvxcHatum skin disorders (3 sources)Dystrophia unguium; Translations: [Nail dystrophy]87-85-6984Pfzdfoyg Nolvia-; endo-; and myocarditis; cardiomyopathy (except that caused by tuberculosis or sexually transmitted disease) (20 sources)Nonischemic congestive cardiomyopathy; Translations: [Dilated cardiomyopathy]Onset: 33-04-3527ExsenloMxrfrzf on above:LHC: nonobstructive coronary disease - 2016s/p ICD - 10/2019, BiV ICD - 8/2022LHC: nonobstructive coronary disease - 2015,s/p ICD - 10/2019, BiV ICD - 8/3Pulmonary heart disease (20 sources)Chronic pulmonary heart disease; Translations: [Other chronic pulmonary heart diseases]Onset: 74-09-9507HtdratdZcbwfiyg codes; unclassified (20 sources)Obstructive sleep apnea syndrome; Translations: [Obstructive sleep apnea (adult) (pediatric)]Onset: 011401-37-9201KpqzgaeJuohivov codes; unclassified (20 sources)Obstructive sleep apnea (adult) (pediatric); Translations: [Obstructive sleep apnea (adult)(pediatric)]Onset: 98-96-5882RirlukiKhlnjyxk codes; unclassified (20 sources)Hypersomnia; Translations: [Hypersomnia, unspecified]Onset: 768395-99-3940ZmqufgcXnhpioll codes; unclassified (20 sources)Patient encounter status; Translations: [Encounter for prophylactic measures, unspecified]40-32-1363LzjhptbhFsplgsr on above:PSA: 0.91 - SA: 0.91 - 07/2024, 0.98 - 02/2025Residual codes; unclassified (6 sources)History of colectomy; Translations: [Acquired absence of other specified parts of digestive tract]12-71-5120NaekwnatQxjtkomw codes; unclassified (4 sources)Requires influenza virus vaccination; Translations: [Need for prophylactic vaccination and inoculation, Influenza]EpisodicResidual codes; unclassified (4 sources)Tobacco user; Translations: [Tobacco use]EpisodicResidual codes; unclassified (4 sources)Not getting enough sleep; Translations: [Insomnia, unspecified] 13-31-1274CulrcnxhUihgmgpdh and history of mental health and substance abuse codes (9 sources)Personal history of nicotine dependence; Translations: [History of tobacco use]Onset: 75-67-0565PsiundiwFnph and subcutaneous tissue infections (7 sources)Carbuncle; Translations: [Carbuncle, unspecified] Resolved: 737990-58-7134XthlkmszKeldkonwwwt; intervertebral disc disorders; other back problems (20 sources)Lumbar spondylosis; Translations: [Spondylosis without myelopathy or radiculopathy, lumbar region]ChronicSpondylosis; intervertebral disc disorders; other back problems (6 sources)Backache; Translations: [Dorsalgia, unspecified]23-16-7006Pfafdpao Thyroid disorders (20 sources)Thyrotoxicosis; Translations: [Thyrotoxicosis, unspecified without thyrotoxic crisis or storm]Onset: 03-04-2022 Resolved: 23-42-9353YnhesttQphmapzakrag (1 source)CHRN KIDNEY DISEASE STG 3 UNSP; Translations: [CHRN KIDNEY DISEASE STG 3 UNSP]Onset: 27-27-3594Klwmrzysgwhw (1 source)CONTACT W/AND (SUSP) EXPOS COVID-19; Translations: [CONTACT W/AND (SUSP) EXPOS COVID-19]Onset: 33-12-0513Chytpsglsxre (1 source)A [facility] screening has identified you as FRAIL [...] Four Ways to Beat the Frailty Risk [email or web address]- wgcb-uk-byep-the-fra kytm-fgqt12-21-2025 Past or Other Problems Problem ClassificationProblemDateDocumented DateEpisodic/ChronicCancer of colon (1 source)Personal history of other malignant neoplasm of large intestine; Translations: [PERS HX OTH MALIG NEOPLSM LG INTEST]Onset: 53-31-7441Tgxsdwfp Deficiency and other anemia (11 sources)Iron deficiency anemia, unspecified; Translations: [Iron deficiency anemia, unspecified]Onset: 296180-33-5121RdivwcwoUtfgazcoqi and other anemia (20 sources)Anemia, unspecified; Translations: [Anemia, unspecified]Onset: 467640-02-9158ZevyvdxaSkrxoeiv mellitus without complication (4 sources)Impaired fasting glycemia; Translations: [Impaired fasting glucose] Resolved: 71-55-3678HvljojalYodw wounds of head; neck; and trunk (4 sources)Laceration with foreign body of scalp, subsequent encounter; Translations: [Laceration with foreignbody of scalp, subsequent encounter]Onset: 99-61-6846YdyxutrlDqmlr aftercare (1 source)Other residential (current) drug therapy; Translations: [OTH REGIONAL MANAGER CURRENT DRUG THERAPY]Onset: 04-16-7611XnlcgospLdrms connective tissue disease (4 sources)Pain in limb; Translations: [Pain in soft tissues of limb]Onset: 39-14-9552HibgipdrFgnbd ear and sense organ disorders (4 sources)Impacted cerumen; Translations: [Impacted cerumen, bilateral] Resolved: 81-87-1698CofufkwqSlbwt gastrointestinal disorders (10 sources)Other fecal abnormalities; Translations: [Nonspecific abnormal findings in stool contents]Onset: 51-25-522427516036-51-9809YhlfzhroEfuqy lower respiratory disease (4 sources)Other forms of dyspnea; Translations: [OTHER FORMS OF DYSPNEA]Onset: 68-17-9051RmezqoniPseld nervous system disorders (1 source)Tremor, unspecified; Translations: [TREMOR UNSPECIFIED]Onset: 55-12-3593KkicejqeRolyx non-traumatic joint disorders (4 sources)Arthralgia of the ankle and/or foot; Translations: [Pain in joint, ankle and foot]Onset: 39-21-4972QozoylmmBdrxa non-traumatic joint disorders (1 source)Pain in left hip; Translations: [Pain in left hip]Onset: 02-25-2025 EpisodicOther nutritional; endocrine; and metabolic disorders (4 sources)Simple obesity ; Translations: [Other obesity due to excess calories] Resolved: 33-80-7386AyrdleuZbhmf skin disorders (4 sources)Sebaceous cyst; Translations: [Sebaceous cyst]Onset: 10-02-2014 EpisodicOther upper respiratory infections (4 sources)Acute maxillary sinusitis; Translations: [Acute maxillary sinusitis, unspecified]Onset: 55-47-7317EvrsrxfoWxitymdio (except that caused by tuberculosis or sexually transmitted disease) (7 sources)Pneumonia, unspecified organism; Translations: [Pneumonia]Onset: 03-06-2022 Resolved: 39-17-2749GfqvwdszKnniapue codes; unclassified (4 sources)Localized edema; Translations: [Localized edema]Onset: 03-13-2019 EpisodicResidual codes; unclassified (3 sources)Other specified health status; Translations: [Other specified health status]Onset: 87-88-2987KqnxzxbjBzlxnpyxyso injury; contusion (4 sources)Contusion of other part of head, subsequent encounter; Translations: [Contusion of other part of head, subsequent encounter]Onset: 91-69-0175Iaqpsixu Unclassified (7 sources)Other eosinophilia; Translations: [Other eosinophilia]Viral infection (1 source)COVID-19 Results Test NameValueInterpretationReference RangeFacilityOrders Onlyon 07-25-2025 Orders [id number] Delano Oliver 1940 M Date Provider Department Center 07/25/2025 ELLI RANGELKavon Howell [facility] Family History Problem Relation Age of Onset Diabetes Mother Heart disease Father Glaucoma Brother Diabetes Maternal Grandmother Clotting disorder Other Family Status - Relation Status Age at Mother Father Brother Maternal Grandmother OtherNormalUniversMercy Health Urbana Hospital36on [phone] from Leann at Dr. Linda's office. This was the note Dr. Linda sent to her: Leann - Call and discuss Delano's bruising w/ Dr. Montoya's nurse. He developed bruising and swelling shortly after receiving the flu shot. His left arm is 3/4 inch larger than his right extremity. There is extensive bruising, which is spreading to the dependent side of his arm ( believes it is more extensive over the past few days). There is no pain associated with the swelling and the extremity is warm to touch w/ strong pulses and intact neuromuscular function. He denies nose bleeds, hematuria, hematochezia or any other areas of bruising. His Hgb is down 1gm since May. His platelet count is normal. Had him hold Xarelto for [address] Montoya be apposed to holding for another 1-2 days or would he prefer to resume qod schedule as discussed w/ patient. Per Dr. Montoya- ok for patient to hold this as Dr. Linda recommended. Leann made aware.NormalFayette County Memorial HospitalTelephoneon 07-21-2025 [id number] Delano Oliver 1940 M Date Provider Department Center 07/21/2025 CALDERON PARKER [facility] Family History Problem Relation Age of Onset Diabetes Mother Heart disease Father Glaucoma Brother Diabetes Maternal Grandmother Clotting disorder Other Family Status - Relation Status Age at Mother Father Brother Maternal Grandmother OtherNormalUniversMercy Health Urbana HospitalHbA1c HPLC (Bld) [Mass fraction] Ordered By: Yas Linda on 55-23-0870KzL7d (Bld) [Mass fraction]6.1 %[facility] HospitalLaboratory - Chemistry and Chemistry - challengeOrdered By: Yas Linda on 51-70-3750Uwhx T4 [Mass/Vol]0.90 ng/dL0.76-1.46[facility] HospitalTSH Qn12.678 m[IU]/LHigh0.358-3.740[facility] HospitalNo Panel InformationOrdered By: Yas Linda on 11-44-5447Aactq Yihqmtptvqdbxgxi05 ng/lECsbaathf67-998SsbbusmtnAvita Health System Ontario HospitalComment on above:Performed at: - [facility] Director: Nathan Munoz PhD, Phone: [phone] Thought I had sent a message to someone. BP's look good, continue current medication regimen. ThanksNoSt. Mary's [facility]36Pt calling wondering about bps they are in [facility] Telephoneon [id number] Delano Oliver 1940 M Date Provider Department Center 06/26/2025 CALDERON PARKER DARWIN [facility] Family History Problem Relation Age of Onset Diabetes Mother Heart disease Father Glaucoma Brother Diabetes Maternal Grandmother Clotting disorder Other Family Status - Relation Status Age at Mother Father Brother Maternal Grandmother OtherNormalUniCleveland Clinic Mentor HospitalOrders Onlyon 34-70-9005Lspzgz [id number] Delano Oliver 1940 M Date Provider Department Center 06/24/2025 TRANG LOPEZ [facility] Family History Problem Relation Age of Onset Diabetes Mother Heart disease Father Glaucoma Brother Diabetes Maternal Grandmother Clotting disorder Other Family Status - Relation Status Age at Mother Father Brother Maternal Grandmother [facility]36on [id number] Tucker, JOSSIE Mahmood MA Please have him increase his isordil and hydralazine to TID. Continue to monitor BP 2 hours after medications. Let us know his readings in 2-3 weeks. Thank you! Previous Messages Beauty Sales Consultant Notice: Other - Scan on 06/04/2025 10:32 AM: bp log 06/04/25 Advised of Meera Snell recommendations. verbalized understanding and agreed with plan of careNormalUniversity of St. David'S Medical CenterOrders Onlyon 65-33-9772Vhayle [id number] Delano Oliver Xochilt 1940 M Date Provider Department Center 06/06/2025 ENRRIQUE TAVAREZ CARD [facility] Family History Problem Relation Age of Onset Diabetes Mother Heart disease Father Glaucoma Brother Diabetes Maternal Grandmother Clotting disorder Other Family Status - Relation Status Age at Mother Father Brother Maternal Grandmother OtherNormalUniversity of St. David'S Medical CenterERYTHROPOETIN (EPO), SERUMon 15-29-3436VRFCMLIVNKTZW (EPO), SERUM22 m[iU]/mL2.6 - 18.5 m[iU]/mLNOMS HealthcareComment on above:MoFuse DxI 800 Immunoassay System Values obtained with different assay methods or kits cannot be used interchangeably. Results cannot be interpreted as absolute evidence of the presence or absence of malignant disease. Performed at: [facility] LabAdam [place] [id number] Trench Digger: Nathan Munoz PhD, Phone: [phone] NOMS HealthcareAlbumin [Mass/volume] in Serum or Plasma by Bromocresol green (BCG) dye binding methoOrdered By: Chivo Keller on 75-85-5254Cdbxuet BCG dye [Mass/Vol]4.2 g/dL3.5-5.7FMain Campus Medical CenterCARCINOEMBRYONIC ANTIGENon 99-48-2075Dsxgkqzxzwmjnb and review of laboratory resultsAbnormalNOKS HealthcareNOMS HealthcareCBC W Auto Differential panel (Bld)on 05-30-2025 Basophils (Bld) [#/Vol]0 10*3/uL0.0 - 0.2 10*3/uLNOMS HealthcareBasophils/100 WBC Manual cnt (Syn fld)0.4 %.NOMS HealthcareEosinophils (Bld) [#/Vol]0.2 10*3/uL0.0 - 0.45 10*3/uLNOKS HealthcareEosinophils/100 WBC Manual cnt (Syn fld) 2.2 %.[facility] HospitalErythrocyte distribution width (RBC) [Ratio]14.7 %12.0 - 14.8 %[facility] HospitalHematocrit (Bld) [Volume fraction]37.5 %Low38.8 - 50.0 % [facility] HospitalHemoglobin (Bld) [Mass/Vol]12.5 g/dLLow13.0 - 17.0 g/dLFulton State HospitalInterpretation and review of laboratory resultsAbnormPunxsutawney Area Hospital Lymphocytes (Bld) [#/Vol]1.4 10*3/uL1.00 - 4.8 10*3/uLNOKS Healthcare Lymphocytes/100 WBC Manual cnt (Syn fld)19.9 %.[facility] HospitalMCH (RBC) [Entitic mass]31.7 pg27.5 - 35.2 pgNorth Kansas City HospitalHC (RBC) [Mass/Vol]33.2 g/dL32.5 - 35.6 g/dLFulton State HospitalMCV (RBC) [Entitic vol]95.5 fL83.5 - 101 fLFulton State HospitalMonocytes (Bld) [#/Vol]0.7 10*3/uL0.0 - 0.8 10*3/uLJORDAN VALLEY MEDICAL CENTER Healthcare Monocytes+Macrophages/100 WBC Manual cnt (Syn fld)9.7 %.[facility] Neutrophils (Bld) [#/Vol]4.9 10*3/uL1.8 - 7.7 10*3/uLNOChildren's Mercy Northland Neutrophils/100 WBC Manual cnt (Syn fld)67.8 %.[facility] State HospitalNRBC0 /100{WBC}0 - 0.5 /100{WBC}[facility] HospitalPlatelet mean volume (Bld) [Entitic vol]7.3 fL6.6 - 10.1 fLFulton State HospitalPlatelets (Bld) [#/Vol]205 10*3/uL150 - 450 10*3/uLNOChildren's Mercy NorthlandRBC LM.HPF (Urine sed) [#/Area]3.93 10*6/uL3.90 - 5.60 10*6/uLNOKS HealthcareWBC (Bld) [#/Vol]7.2 10*3/uL4.1 - 10.5 10*3/uLNOMS HealthcareWBC LM.HPF (Urine sed) [#/Area]7.2 [CFU]/mL4.1 - 10.5 [CFU]/mLNOMS HealthcareNOKS HealthcareComplete Blood Count Auto DiffOrdered By: Chivo Keller on 85-65-6282Hrtijtavt (Bld) [#/Vol]0.0 10*3/uL0.0-0.2FMain Campus Medical CenterComment on above:Result Comment: PERFORMED BY: [place] [address] PATHOLOGIST ENGAGEMENT LIAISON LOGAN RUIZ M.D.Performed By: #### RENAL, CBC #### [place] [address] USABasophils/100 WBC (Bld)0.4 %.[facility] HospitalComment on above:Performed By: #### RENAL, CBC #### [place] [address] USAEosinophils (Bld) [#/Vol]0.2 10*3/uL0.0-0.45[facility] HospitalComment on above:Performed By: #### RENAL, CBC #### [place] [address] USAEosinophils/100 WBC (Bld)2.2 %.[facility] HospitalComment on above:Performed By: #### RENAL, CBC #### [place] [address] USAErythrocyte distribution width (RBC) [Ratio]14.7 % 12.0-14.8[facility] HospitalComment on above:Performed By: #### RENAL, CBC #### [place] [address] USAHematocrit (Bld) [Volume fraction]37.5 %Low38.8-50.0 [facility] HospitalComment on above:Performed By: #### RENAL, CBC #### [place] [address] USAHemoglobin (Bld) [Mass/Vol]12.5 g/dLLow13.0-17.0[facility] HospitalComment on above:Performed By: #### RENAL, CBC #### [facility] [address] [place] [address] USALymphocytes (Bld) [#/Vol]1.4 10*3/uL1.00-4.8[facility] HospitalComment on above:Performed By: #### RENAL, CBC #### [facility] [address] [place] [address] USALymphocytes/100 WBC (Bld)19.9 %.[facility] HospitalComment on above:Performed By: #### RENAL, CBC #### [place] [address] USAMCH (RBC) [Entitic mass]31.7 pg27.5-35.2FMain Campus Medical CenterComment on above:Performed By: #### RENAL, CBC #### [facility] [address] [place] [address] USAMCV (RBC) [Entitic vol]95.5 fL83.5-101[facility] HospitalComment on above:Performed By: #### RENAL, CBC #### [place] [address] USAMonocytes (Bld) [#/Vol]0.7 10*3/uL0.0-0.8[facility] HospitalComment on above:Performed By: #### RENAL, CBC #### [facility] [address] [place] [address] USAMonocytes/100 WBC (Bld)9.7 %.[facility] HospitalComment on above:Performed By: #### RENAL, CBC #### [facility] [address] [place], [place] [id number] USANeutrophils (Bld) [#/Vol]4.9 10*3/uL1.8-7.7FMain Campus Medical CenterComment on above:Performed By: #### RENAL, CBC #### [facility] [address] [place] [address] USANeutrophils/100 WBC (Bld)67.8 %.[facility] HospitalComment on above:Performed By: #### RENAL, CBC #### [place] [address] USAPlatelet mean volume (Bld) [Entitic vol]7.3 fL6.6-10.1 [facility] HospitalComment on above:Performed By: #### RENAL, CBC #### [place] [address] USAPlatelets (Bld) [#/Vol]205 10*3/zX500-532UjsqlgbhjAvita Health System Ontario HospitalComment on above:Performed By: #### RENAL, CBC #### [place] [address] USARBC (Bld) [#/Vol]3.93 10*6/uL3.90-5.60[facility] HospitalComment on above:Performed By: #### RENAL, CBC #### [place] [address] USAWBC (Bld) [#/Vol]7.2 10*3/uL4.1-10.5FMain Campus Medical CenterComment on above:Performed By: #### RENAL, CBC #### [place] [address] USAComplete Blood Count Auto Diffon 35-22-1598Bfep Corpuscular HGB Conc33.2 g/cHCcenoh68.5-35.6[facility] Physician GroupComment on above:Performed By: #### RENAL, CBC #### [place] [address] USANRBC%0.0 /100{WBC}Normal0-0.5[facility] Comment on above:Performed By: #### RENAL, CBC #### [place] [address] USAWhite Blood Count7.2 [CFU]/mLNormal4.1-10.5[facility] Physician GroupComment on above:Performed By: #### RENAL, CBC #### [place] [address] USAComprehensive Metabolic Panelon 59-45-0535Qlywsxt [Mass/Vol]4.2 g/dLNormal3.5-5.7The [facility] Physician GroupComment on above: Performed By: #### RENAL, CBC #### [facility] [address] [place] [address] USACreatinine Clr Calc Oispmcqc12.38NormalThe Good Hope Hospital Physician GroupComment on above:Performed By: #### RENAL, CBC #### [place] [address] USAGFR/1.73 sq M.predicted MDRD (S/P/Bld) [Vol rate/Area] 28.071 mL/min/{1.73_m2}NormalThe Good Hope Hospital Physician [facility] CenterComment on above: Performed By: #### RENAL, CBC #### [place] [address] USAComprehensive Metabolic PanelOrdered By: Chivo Keller on 45-07-9516Ksxuvnw/Globulin [Mass ratio]1.8 {ratio}[facility] HospitalComment on above:Performed By: #### RENAL, CBC #### [place] [address] USAALP [Catalytic activity/Vol]124 U/RJecc77-227ZdjacqppeAvita Health System Ontario HospitalComment on above:Performed By: #### RENAL, CBC #### [place] [address] USAALT [Catalytic activity/Vol]15 U/L7-52[facility] HospitalComment on above:Performed By: #### RENAL, CBC #### [place] [address] USAAnion gap [Moles/Vol]10.2 mmol/L6.0-15.0[facility] HospitalComment on above:Performed By: #### RENAL, CBC #### [place] [address] USAAST [Catalytic activity/Vol]17 U/F95-80EohlyklyiAvita Health System Ontario HospitalComment on above:Performed By: #### RENAL, CBC #### [facility] [address] [place] [address] USABilirubin [Mass/Vol]0.6 mg/dL0.3-1.0[facility] HospitalComment on above:Performed By: #### RENAL, CBC #### [facility] [address] [place] [address] USACalcium [Mass/Vol]8.6 mg/dL8.6-10.3FMain Campus Medical CenterComment on above:Performed By: #### RENAL, CBC #### [facility] [address] [place] [address] USAChloride [Moles/Vol]101 mmol/V16-145BuxkxulsgAvita Health System Ontario HospitalComment on above:Performed By: #### RENAL, CBC #### [facility] [address] [place] [id number] USACO2 [Moles/Vol]34.0 mmol/LHigh21.0-31.0[facility] HospitalComment on above:Performed By: #### RENAL, CBC #### [facility] [address] [place] [id number] USACreatinine [Mass/Vol]2.26 mg/dLHigh0.70-1.30[facility] HospitalComment on above:Performed By: #### RENAL, CBC #### [facility] [address] [place] [id number] USAGlobulin (S) [Mass/Vol]2.3 g/dLAvita Health System Ontario HospitalComment on above:Performed By: #### RENAL, CBC #### [facility] [address] [place] [id number] USAGlucose [Mass/Vol]106 mg/jMXyfu37-344OdzzljckyAvita Health System Ontario HospitalComment on above:Result Comment: Random Glucose Reference Range is dependent on time and content of last meal. Glucose of more than 200 mg/dL in a nonstressed, ambulatory subject supports the diagnosis of Diabetes Mellitus. ADA recommended reference rangePerformed By: #### RENAL, CBC #### [facility] [address] [place] [address] USAADA recommended reference rangeRandom Glucose Reference Range is dependent on time and content of last meal. Glucose of more than 200 mg/dL in a nonstressed, ambulatory subject supports the diagnosisof Diabetes Mellitus.Potassium [Moles/Vol]4.2 mmol/L3.5-5.1FMain Campus Medical Center Comment on above:Performed By: #### RENAL, CBC #### [place] [address] USAProtein [Mass/Vol]6.5 g/dL6.4-8.9[facility] HospitalComment on above:Performed By: #### RENAL, CBC #### [place] [address] USASodium [Moles/Vol]141 mmol/X939-480PwflvspfpAvita Health System Ontario HospitalComment on above:Performed By: #### RENAL, CBC #### [place] [address] USAUrea nitrogen [Mass/Vol]44 mg/dLHigh7-25[facility] HospitalComment on above:Performed By: #### RENAL, CBC #### [place] [address] USAErythropoetin (EPO), Serumon 25-97-1687Kiktpejhbzeri (EPO), Serum22.0 m[iU]/mLNormal2.6-18.5The [facility] Physician GroupComment on above:Result Comment: MoFuse DxI 800 Immunoassay System Values obtained with different assay methods or kits cannot be used interchangeably. Results cannot be interpreted as absolute evidence of the presence or absence of malignant disease. Performed at: - [address] [id number] Trench Digger: Nathan Munoz PhD, Phone: [phone] PERFORMED BY: [place] [address] PATHOLOGIST ENGAGEMENT LIAISON LOGAN RUIZ M.D.Performed By: #### FE and TIBC, CMP, TONY, CBC, CEA, [id number] ####[facility] [place] [address] [facility]#### EPO ####[facility] ,FerritinOrdered By: Chivo Keller on 77-39-0566Riuufsko [Mass/Vol]236.2 ng/mL23.9-336.2FMain Campus Medical CenterComment on above:Performed By: #### RENAL, CBC #### [facility] [address] [place] [address] USAFolate [Mass/volume] in Serum or PlasmaOrdered By: Chivo Keller on 71-69-8955Ofowvt [Mass/Vol]ng/mL>5.9Av[facility] Health System Ontario HospitalComment on above:Folate reference range: >5.9 ng/mlThe WHO technical consultation on folate and vitamin f50jvhrugsmcvxz has determined that folate concentrations lessthan 4 ng/ml are considered deficient.Iron and TIBC Profileon 05-30-2025% Iron Wcpmrgxsfe79.1 %Tschxo50-47Ehb [facility] Comment on above:Performed By: #### RENAL, CBC #### [facility] [address] [place] [address] USATotal Iron Binding Tulhtlan275 ug/rAEnjzqn286-539Jwf [facility] Physician GroupComment on above:Performed By: #### RENAL, CBC #### [facility] [address] [place] [address] USAIron and TIBC ProfileOrdered By: Chivo Keller on 38-33-7236Mruy [Mass/Vol]76 ug/fG46-430VjgxvsyslAvita Health System Ontario HospitalComment on above:Performed By: #### RENAL, CBC #### [facility] [address] [place] [address] USATransferrin [Mass/Vol]193 mg/xQFmc691-325FktrrtubdAvita Health System Ontario HospitalComment on above:Performed By: #### RENAL, CBC #### [facility] [address] [place] [address] USALeukocytes [#/volume] corrected for nucleated erythrocytes in Blood by Automated counOrdered By: Chivo Keller on 51-86-6681FMM corrected for nucl RBC Auto (Bld) [#/Vol]7.2 10*3/uL4.1-10.5FMain Campus Medical CenterMCHC Auto (RBC) [Mass/Vol]Ordered By: Chivo Keller on 05-46-1137YJGY (RBC) [Mass/Vol]33.2 g/dL32.5-35.6FMain Campus Medical CenterNo Panel InformationOrdered By: Chivo Keller on 83-68-5421Bbyvtjthy GFR (CKD-EPI)28.071 mL/MinAvita Health System Ontario HospitalPharmacy Creatinine Clearance (Chem26.38Av[facility] System Ontario HospitalNucleated erythrocytes [Presence] in Blood by Automated countOrdered By: Chivo Keller on 78-85-0734Yhjlzqckl RBC Auto Ql (Bld)0.0 /100{WBC}0-0.5FCleveland Clinic Marymount Hospitalerum or plasma erythropoietin (EPO) measurement (units/volume) Ordered By: Chivo Keller on 72-42-8587Yocrjqbkiedxuq (EPO) Qn22.0 mIU/mL High2.6-18.5FMain Campus Medical CenterComment on above:MoFuse DxI 800 Immunoassay SystemValues obtained with different assay methods or kits cannotbe used interchangeably. Results cannot be interpreted asabsolute evidence of the presence or absence of malignantdisease.Performed at: [facility] [place] [id number] Director: Nathan Munoz PhD, Phone: [phone] or plasma iron binding capacity measurement (mass/volume)Ordered By: Chivo Keller on 18-71-4124Zmca binding capacity [Mass/Vol]270 ug/lR762-001WuptzfvxtEast Ohio Regional Hospitalerum or plasma iron saturation measurement (mass fraction)Ordered By: Chivo Keller on 02-21-4659Lhjs saturation [Mass fraction]28.1 %20-50Avita Health System Ontario HospitalVit. B12/Folate ProfileOrdered By: Chivo Kellre on 05-30-2025 Cobalamin (Vitamin B12) [Mass/Vol]433 pg/gD478-985LheokuwjzAvita Health System Ontario HospitalComment on above:Performed By: #### FE and TIBC, CMP, TONY, CBC, CEA, [id number] ####[facility] [place] [id number] [place]#### EPO ####[facility] ,Vit. B12/Folate Profileon 94-27-0334Jxcsqd >49.6Normal>5.9The [facility] Physician GroupComment on above:Result Comment: Folate reference range: >5.9 ng/ml The WHO technical consultation on folate and vitamin b12 deficiencies has determined that folate concentrations less than 4 ng/ml are considered deficient. PERFORMED BY: [facility] [address] [place] [id number] PATHOLOGIST ENGAGEMENT LIAISON LOGAN RUIZ M.D.Performed By: #### FE and TIBC, CMP, TONY, CBC, CEA, [id number] ####[facility] [place] [id number] [facility]#### EPO ####[facility] ,Office Visiton 27-32-1398Pgxjxr-up visit [id number] Delano Oliver 1940 M Date Provider Department Center 05/27/2025 TRANG LOPEZ CARD [facility] Family History Problem Relation Age of Onset Diabetes Mother Heart disease Father Glaucoma Brother Diabetes Maternal Grandmother Clotting disorder Other Family Status - Relation Status Age at Mother Father Brother Maternal Grandmother Other Level of Service:32680 [place] OFFICE/OUTPATIENT ESTABLISHED LOW [facility]DM [facility] HospitalOr[facility] Onlyon 79-55-3813Hccxzn [id number] Delano Oliver 1940 M Date Provider Department Center 05/22/2025 TRANG LOPEZ C CARD [place] [facility] Family History Problem Relation Age of Onset Diabetes Mother Heart disease Father Glaucoma Brother Diabetes Maternal Grandmother Clotting disorder Other Family Status - Relation Status Age at Mother Father Brother Maternal Grandmother OtherNormalUniCleveland Clinic Mentor HospitalOrders [id number] Delano Oliver 1940 M Date Provider Department Center 05/22/2025 TIEN RANGEL HVC CARD [place] [facility] Family History Problem Relation Age of Onset Diabetes Mother Heart disease Father Glaucoma Brother Diabetes Maternal Grandmother Clotting disorder Other Family Status - Relation Status Age at Mother Father Brother Maternal Grandmother OtherNormalUniCleveland Clinic Mentor HospitalDocumentationon 04-25-2025 [id number] OliverDelano guzman 1940 M Date Provider Department Center 04/25/2025 FERMIN CANCHOLA [facility] [place] [facility] Family History Problem Relation Age of Onset Diabetes Mother Heart disease Father Glaucoma Brother Diabetes Maternal Grandmother Clotting disorder Other Family Status - Relation Status Age at Mother Father Brother Maternal Grandmother Other Reason for Visit and Comments: Congestive Heart Failure [127]NormalUnMount Carmel Health SystemOffice Visiton 74-85-9980Sqyjew-up [id number] Delano Oliver 1940 M Date Provider Department Center 04/14/2025 ADAN YOUSIF [facility] Family History Problem Relation Age of Onset Diabetes Mother Heart disease Father Glaucoma Brother Diabetes Maternal Grandmother Clotting disorder Other Family Status - Relation Status Age at Mother Father Brother Maternal Grandmother Other Level of Service:55213 [place] OFFICE/OUTPATIENT ESTABLISHED [facility] HospitalErythrocyte distribution width Auto (RBC) [Ratio]Ordered By: Zahida Flowers on 86-49-4534Qilbyeejomr distribution width (RBC) [Ratio]14.0 %11.0-15.0Av[facility] Ontario HospitalEstimated glomerular filtration rate (GFR) non- AmericanOrdered By: Zahida Flowers on 04-08-2025 GFR/1.73 sq M.predicted among non-blacks MDRD (S/P/Bld) [Vol rate/Area]29 mL/min/{1.73_m2}Low>=60 mL/min/1.73m [address] [place] [address] Hematocrit Auto (Bld) [Volume fraction]Ordered By: Zahida Flowers on 04-08-2025 Hematocrit (Bld) [Volume fraction]39.2 %Low42.0-54.0[facility] Ontario HospitalHemoglobin [Mass/volume] in BloodOrdered By: Zahida Flowers on 04-08-2025 Hemoglobin (Bld) [Mass/Vol]12.9 g/dLLow14.0-18.0[facility] Ontario HospitalIron binding capacity [Mass/volume] in Serum or PlasmaOrdered By: Zahida Flowers on 03-28-4905Ytmk binding capacity [Mass/Vol]236.0 ug/wGGhw884.0-450.0 [facility] Ontario HospitalIron saturation [Mass Fraction] in Serum or PlasmaOrdered By: Zahida Flowers on 03-27-5886Ytgv saturation [Mass fraction]26.7 % [facility] HospitalLaboratory - Chemistry and Chemistry - challengeOrdered By: Zahida Flowers on 53-68-4505Bqbyazi [Mass/Vol]3.6 g/dL3.4-5.0 [facility] HospitalCalcium [Mass/Vol]9.4 mg/dL8.5-10.1FMain Campus Medical CenterChloride [Moles/Vol]102 mmol/B06-024WasmmxgmbAvita Health System Ontario HospitalCO2 [Moles/Vol]34.4 mmol/LHigh21.0-32.0[facility] HospitalCreatinine [Mass/Vol]2.17 mg/dLHigh0.70-1.30[facility] Ontario HospitalFerritin [Mass/Vol]432.0 ng/sJYzzr97.0-388.0[facility] HospitalGFR/1.73 sq M.predicted MDRD (S/P/Bld) [Vol rate/Area]36 mL/min/{1.73_m2} Low>=60 mL/min/1.73m 2FMain Campus Medical CenterGlucose [Mass/Vol]97 mg/nU68-412PsmxnrztwAvita Health System Ontario HospitalIron [Mass/Vol]63.0 ug/dLLow 65.0-175.0[facility] HospitalMagnesium [Mass/Vol]2.4 mg/dL1.8-2.4 [facility] HospitalPotassium [Moles/Vol]4.2 mmol/L3.5-5.1FCleveland Clinic Marymount Hospitalodium [Moles/Vol]142 mmol/W190-969OojdsgmstAvita Health System Ontario HospitalUrate [Mass/Vol]7.7 mg/dLHigh3.5-7.2FMain Campus Medical CenterUrea nitrogen [Mass/Vol]46.0 mg/dLHigh7.0-18.0[facility] HospitalUrea nitrogen/Creatinine [Mass ratio]21.2 mg/mgAvita Health System Ontario HospitalLaboratory - Chemistry and Chemistry - challengeOrdered By: Yas Linda on 94-22-5514Hnfy T4 [Mass/Vol]1.00 ng/dL0.76-1.46Av[facility] HospitalTS Qn12.655 m[IU]/LHigh0.358-3.740[facility] Laboratory - UrinalysisOrdered By: Zahida Flowers on 30-99-2764Pkixxbu (U) [Mass/Vol]24.0 mg/dLHigh<=11.9Av[facility] Ontario HospitalLeukocytes [#/volume] corrected for nucleated erythrocytes in Blood by Automated coun Ordered By: Zahida Flowers on 04-60-2728HKV corrected for nucl RBC Auto (Bld) [#/Vol]7.2 10 3/uL4.0-11.0[facility] Auto (RBC) [Entitic mass]Ordered By: Zahida Flowers on 06-98-4084SRD (RBC) [Entitic mass]31.5 pg25.9-34.0[facility] HospitalHC Auto (RBC) [Mass/Vol]Ordered By: Zahida Flowers on 43-47-9225PFXC (RBC) [Mass/Vol]32.9 g/dL29.9-35.2FMain Campus Medical CenterMCV Auto (RBC) [Entitic vol]Ordered By: Zahida Flowers on 42-76-5531UEL (RBC) [Entitic vol]95.8 eOHqce08.0-94.0[facility] HospitalNo Panel InformationOrdered By: Zahida Flowers on 735507-Agojgdr Vitamin D Total89.1 ng/mLAvita Health System Ontario HospitalComment on above:<20 ng/mL Vit D karuethvd78-<30 ng/mL Vit D lirmlgcrgblk62-858 ng/mL Vit D sufficient>100 ng/mL Potential ToxicityParathyroid Hormone (Intact)59 pg/mL15-65 [facility] Ontario HospitalComment on above:Performed at: LUVHANKessler Institute for RehabilitationJnxgfu[address] [place] [id number] Director: Nathan Munoz PhD, Phone: [phone] Level3.6 mg/dL2.6-4.7FMain Campus Medical CenterUrine Random Creatinine<13.00 mg/dLLow20.00-300.00[facility] HospitalNo Panel InformationOrdered By: Ysa Linda on 51-46-8899Lqmda Fntayweqwhnouhht12 ng/yLVnqvyujl34-181KllqkfajyAvita Health System Ontario HospitalComment on above:Performed at: [address] [place], [place] [id number] Director: Nathan Munoz PhD, Phone: [phone] mean volume Auto (Bld) [Entitic vol]Ordered By: Zahida Flowers on 06-35-1556Mtcsmlfi mean volume (Bld) [Entitic vol]8.4 fLLow9.5-13.5FMain Campus Medical CenterPlatelets Auto (Bld) [#/Vol]Ordered By: Zahida Flowers on 55-35-7239Npkyrjbnj (Bld) [#/Vol]196 10 3/lX555-729JswulwsrfAvita Health System Ontario HospitalRBC Auto (Bld) [#/Vol]Ordered By: Zahida Flowers on 61-17-3349BAJ (Bld) [#/Vol]4.09 10 6/uLLow 4.70-6.10East [place] Regional Hospitalerum or plasma anion gap determinationOrdered By: Zahida Flowers on 57-68-8892Abbmh gap [Moles/Vol]9.8 mmol/LFMain Campus Medical Center36on 86-01-234664Nb he is feeling okay (no dizziness/LH), would like him to increase his hydralazine to 25mg BID. He can use up his 10mg tablets by taking 2 tablets (equally 20mg) until this is out then start the hydralazine 25mg BID. Thanks! [facility] HospitalOrders Onlyon 27-74-2302Nyqtrr Only [id number] Delano Oliver 1940 M Date Provider Department Center 03/06/2025 ENRRIQUE TAVAREZ [facility] CARD [place] [facility] Family History Problem Relation Age of Onset Diabetes Mother Heart disease Father Glaucoma Brother Diabetes Maternal Grandmother Clotting disorder Other Family Status - Relation Status Age at Mother Father Brother Maternal Grandmother OtherNormalUniversity of St. David'S Medical CenterBasophils Auto (Bld) [#/Vol] Ordered By: Chivo Keller on 36-44-5520Fsdrivqmb (Bld) [#/Vol]Automated basophil count0.0-0.2FMain Campus Medical CenterBasophils [#/volume] in Blood by Automated countOrdered By: Chivo Keller on 88-49-4523Nsfhqctzu (Bld) [#/Vol]0.0 10*3/uLNormal0.0-0.2FMain Campus Medical CenterComment on above:Result Comment: PERFORMED BY: [place] [address] PATHOLOGIST ENGAGEMENT LIAISON KRISTEL LU M.D.Performed By: #### RENAL, CBC #### [facility] [address] [place] [address] USABasophils/100 WBC Auto (Bld)Ordered By: Chivo Keller on 78-28-8686Pzwtzofak/100 WBC (Bld)Automated basophil %.[facility] HospitalBasophils/100 leukocytes in Blood by Automated countOrdered By: Chivo Keller on 97-98-0932Iqtopcxdo/100 WBC (Bld)0.2 %Normal.[facility] HospitalComment on above:Performed By: #### RENAL, CBC #### [facility] [address] [place] [address] USACBC W Auto Differential panel (Bld)on 01-80-1974Watbdkrxy (Bld) [#/Vol]0 10*3/uL0.0 - 0.2 10*3/uLNOMS HealthcareBasophils/100 WBC Manual cnt (Syn fld)0.2 %.NOMS HealthcareEosinophils (Bld) [#/Vol]0.1 10*3/uL0.0 - 0.45 10*3/uLNOMS HealthcareEosinophils/100 WBC Manual cnt (Syn fld)0.9 %.[facility] HospitalErythrocyte distribution width (RBC) [Ratio]15.5 %High12.0 - 14.8 % [facility] HospitalHematocrit (Bld) [Volume fraction]33.5 %Low38.8 - 50.0 %[facility] HospitalHemoglobin (Bld) [Mass/Vol]11.2 g/dLLow13.0 - 17.0 g/dLFulton State Hospital Interpretation and review of laboratory resultsAbnormalFulton State Hospital Lymphocytes (Bld) [#/Vol]1.1 10*3/uL1.00 - 4.8 10*3/uLNOKS Healthcare Lymphocytes/100 WBC Manual cnt (Syn fld)15.1 %.[facility] HospitalH (RBC) [Entitic mass]31.6 pg27.5 - 35.2 pgNorth Kansas City HospitalHC (RBC) [Mass/Vol]33.5 g/dL32.5 - 35.6 g/dLFulton State HospitalMCV (RBC) [Entitic vol]94.3 fL83.5 - 101 fLFulton State HospitalMonocytes (Bld) [#/Vol]0.5 10*3/uL0.0 - 0.8 10*3/uLNOKS Healthcare Monocytes+Macrophages/100 WBC Manual cnt (Syn fld)6.9 %.[facility] Neutrophils (Bld) [#/Vol]5.4 10*3/uL1.8 - 7.7 10*3/uLNOKS Healthcare Neutrophils/100 WBC Manual cnt (Syn fld)76.9 %.[facility] State HospitalNRBC0 /100{WBC}0 - 0.5 /100{WBC}[facility] HospitalPlatelet mean volume (Bld) [Entitic vol]7.2 fL6.6 - 10.1 fLJORDAN VALLEY MEDICAL CENTER HealthcarePlatelets (Bld) [#/Vol]232 10*3/uL150 - 450 10*3/uLNOChildren's Mercy NorthlandRBC LM.HPF (Urine sed) [#/Area]3.55 10*6/uLLow3.90 - 5.60 10*6/uLNOMS HealthcareWBC (Bld) [#/Vol]7 10*3/uL4.1 - 10.5 10*3/uLNOKS HealthcareWBC LM.HPF (Urine sed) [#/Area]7 10*3/uL4.1 - 10.5 10*3/uLNOMS [facility] Healthcare Complete Blood Count Auto Diffon 87-83-7209Eptb Corpuscular HGB Conc33.5 g/dL Likhgw77.5-35.6The [facility] Hospital Physician GroupComment on above:Performed By: #### RENAL, CBC #### [facility] [address] [place] [address] USANRBC%0.0 /100{WBC}Normal0-0.5[facility] Comment on above:Performed By: #### RENAL, CBC #### [place] [address] USAEosinophils Auto (Bld) [#/Vol]Ordered By: Chivo Keller on 49-09-1950Cinsbkimvwn (Bld) [#/Vol]Automated eosinophil count 0.0-0.45[facility] HospitalEosinophils [#/volume] in Blood by Automated countOrdered By: Chivo Keller on 64-05-2858Rtscfpqrlxs (Bld) [#/Vol]0.1 10*3/uLNormal0.0-0.45[facility] HospitalComment on above:Performed By: #### RENAL, CBC #### [place] [id number] USAEosinophils/100 WBC Auto (Bld)Ordered By: Chivo Keller on 30-55-4102Votgapeqzxs/100 WBC (Bld)Automated eosinophil %.[facility] HospitalEosinophils/100 leukocytes in Blood by Automated count Ordered By: Chivo Keller on 55-45-2937Zgsctnbqurb/100 WBC (Bld)0.9 %Normal. [facility] HospitalComment on above:Performed By: #### RENAL, CBC #### [place] [address] USAErythrocyte distribution width Auto (RBC) [Ratio]Ordered By: Chivo Keller on 89-31-7382Wraxaamnppv distribution width (RBC) [Ratio] Erythrocyte distribution width [Ratio] by Automated ogfmbLzwd55.0-14.8[facility] HospitalErythrocyte distribution width [Ratio] by Automated count Ordered By: Chivo Keller on 85-76-8810Lcwyjoahbny distribution width (RBC) [Ratio]15.5 %High12.0-14.8[facility] HospitalComment on above: Performed By: #### RENAL, CBC #### [facility] [address] [place] [address] USAErythrocytes [#/volume] in Blood by Automated countOrdered By: Chivo Keller on 77-39-5724AGI (Bld) [#/Vol]3.55 10*6/uLLow3.90-5.60 [facility] HospitalComment on above:Performed By: #### RENAL, CBC #### [facility] [address] [place] [address] USAHematocrit Auto (Bld) [Volume fraction]Ordered By: Chivo Keller on 68-17-4842Ewuyyfesfm (Bld) [Volume fraction]Hematocrit [Volume Fraction] of Blood by Automated uljamGhg93.8-50.0[facility] HospitalHematocrit [Volume Fraction] of Blood by Automated countOrdered By: Chivo Keller on 74-60-0723Ehmxuwnxmz (Bld) [Volume fraction]33.5 %Low 38.8-50.0[facility] HospitalComment on above:Performed By: #### RENAL, CBC #### [facility] [address] [place] [id number] USAHemoglobin [Mass/volume] in BloodOrdered By: Chivo Keller on 97-27-1198Aoanlhzrrj (Bld) [Mass/Vol]Hemoglobin [Mass/volume] in JiaxzScf24.0-17.0[facility] HospitalHemoglobin (Bld) [Mass/Vol] 11.2 g/dLLow13.0-17.0[facility] HospitalComment on above:Performed By: #### RENAL, CBC #### [facility] [address] [place] [address] USALeukocytes [#/volume] corrected for nucleated erythrocytes in Blood by Automated counOrdered By: Chivo Keller on 30-29-3610PKA corrected for nucl RBC Auto (Bld) [#/Vol]Leukocytes [#/volume] corrected for nucleated erythrocytes in Blood by Automated coun4.1-10.5FMain Campus Medical CenterWBC corrected for nucl RBC Auto (Bld) [#/Vol]7.0 10*3/uL4.1-10.5 [facility] HospitalLeukocytes [#/volume] in Blood by Automated countOrdered By: Chivo Keller on 79-89-7254KID (Bld) [#/Vol]7.0 10*3/uL Normal4.1-10.5FMain Campus Medical CenterComment on above:Performed By: #### RENAL, CBC #### [facility] [address] [place] [id number] USALymphocytes Auto (Bld) [#/Vol]Ordered By: Chivo Keller on 90-59-6516Kpqlbmeikgh (Bld) [#/Vol]Lymphocytes [#/volume] in Blood by Automated count1.00-4.8[facility] HospitalLymphocytes [#/volume] in Blood by Automated countOrdered By: Chivo Keller on 78-89-5673Lblraswxqys (Bld) [#/Vol]1.1 10*3/uLNormal1.00-4.8[facility] HospitalComment on above:Performed By: #### RENAL, CBC #### [facility] [address] [place] [id number] USALymphocytes/100 WBC Auto (Bld)Ordered By: Chivo Keller on 43-57-2885Oukmfhtgsxr/100 WBC (Bld)Lymphocytes/100 leukocytes in Blood by Automated count.[facility] HospitalLymphocytes/100 leukocytes in Blood by Automated countOrdered By: Chivo Keller on 83-53-8257Yaadcdnzgko/100 WBC (Bld)15.1 %Normal.[facility] HospitalComment on above:Performed By: #### RENAL, CBC #### [facility] [address] [place] [id number] [facility] [place] (RBC) [Entitic mass]Ordered By: Chivo Keller on 04-67-4879BCG (RBC) [Entitic mass]MCH [Entitic mass] by Automated count 27.5-35.2FOhio State East Hospital [Entitic mass] by Automated count Ordered By: Chivo Keller on 63-78-7644GNZ (RBC) [Entitic mass]31.6 pgNormal 27.5-35.2FMain Campus Medical CenterComment on above:Performed By: #### RENAL, CBC #### [facility] [address] [place] [id number] [facility] Auto (RBC) [Mass/Vol]Ordered By: Chivo Keller on 44-76-0346CFGC (RBC) [Mass/Vol]MCHC [Mass/volume] by Automated count32.5-35.[address] [facility] HospitalHC (RBC) [Mass/Vol]33.5 g/dL32.5-35.6 [facility] Auto (RBC) [Entitic vol]Ordered By: Chivo Keller on 26-99-3710TNP (RBC) [Entitic vol]MCV [Entitic volume] by Automated count83.5-101[facility] Joseph Warren HospitalV [Entitic volume] by Automated countOrdered By: Chivo Keller on 74-05-5031RKB (RBC) [Entitic vol]94.3 fL Yreyaa79.5-101[facility] HospitalComment on above:Performed By: #### RENAL, CBC #### [facility] [address] [place] [address] USAMonocytes Auto (Bld) [#/Vol]Ordered By: Chivo Keller on 57-01-6557Qwybpqwuz (Bld) [#/Vol]Automated blood monocyte count0.0-0.8 [facility] HospitalMonocytes [#/volume] in Blood by Automated countOrdered By: Chivo Keller on 60-46-2845Wtdyhxybr (Bld) [#/Vol]0.5 10*3/uLNormal0.0-0.8[facility] HospitalComment on above:Performed By: #### RENAL, CBC #### [facility] [address] [place] [id number] USAMonocytes/100 WBC Auto (Bld)Ordered By: Chivo Keller on 34-72-8054Dmxiyfcpb/100 WBC (Bld)Automated monocyte %.[facility] HospitalMonocytes/100 leukocytes in Blood by Automated countOrdered By: Chivo Keller on 96-48-3515Qtqwttlxp/100 WBC (Bld)6.9 %Normal.[facility] HospitalComment on above:Performed By: #### RENAL, CBC #### [place] [id number] USANeutrophils Auto (Bld) [#/Vol]Ordered By: Chivo Keller on 25-33-2726Imlwgziofdg (Bld) [#/Vol]Neutrophils [#/volume] in Blood by Automated count1.8-7.7FMain Campus Medical CenterNeutrophils [#/volume] in Blood by Automated countOrdered By: Chivo Keller on 02-28-2025 Neutrophils (Bld) [#/Vol]5.4 10*3/uLNormal1.8-7.7FMain Campus Medical CenterComment on above:Performed By: #### RENAL, CBC #### [facility] [address] [place] [id number] USANeutrophils/100 WBC Auto (Bld)Ordered By: Chivo Keller on 76-72-7097Wrbigbyrpde/100 WBC (Bld)Automated neutrophil %.[facility] HospitalNeutrophils/100 leukocytes in Blood by Automated count Ordered By: Chivo Keller on 59-60-1422Huxiqzrqwws/100 WBC (Bld)76.9 %Normal .[facility] HospitalComment on above:Performed By: #### RENAL, CBC #### [address] [address] USANucleated erythrocytes [Presence] in Blood by Automated countOrdered By: Chivo Keller on 51-83-9411Wipcouxfn RBC Auto Ql (Bld) Nucleated erythrocytes [Presence] in Blood by Automated count0-0.5FMain Campus Medical CenterNucleated RBC Auto Ql (Bld)0.0 /100{WBC}0-0.5FMain Campus Medical CenterPlatelet mean volume Auto (Bld) [Entitic vol]Ordered By: Chivo Keller on 51-99-4321Zmdpcsry mean volume (Bld) [Entitic vol]Platelet mean volume [Entitic volume] in Blood by Automated count6.6-10.1FMain Campus Medical CenterPlatelet mean volume [Entitic volume] in Blood by Automated countOrdered By: Chivo Keller on 19-52-4822Ogrtdrfu mean volume (Bld) [Entitic vol]7.2 fLNormal6.6-10.1FMain Campus Medical CenterComment on above:Performed By: #### RENAL, CBC #### [facility] [address] [place] [id number] USAPlatelets Auto (Bld) [#/Vol]Ordered By: Chivo Keller on 76-75-5575Xmtadkfky (Bld) [#/Vol]Platelets [#/volume] in Blood by Automated -339E[address] [place], [place] [address]Platelets [#/volume] in Blood by Automated countOrdered By: Chivo Keller on 44-71-9440Uhoyfipiy (Bld) [#/Vol]232 10*3/sAZkdrtn981-719Svvrezq[address] [place], [place] [address]Comment on above:Performed By: #### RENAL, CBC #### [facility] [address] [place] [address] USARBC Auto (Bld) [#/Vol]Ordered By: Chivo Keller on 92-59-0634TRX (Bld) [#/Vol]Erythrocytes [#/volume] in Blood by Automated count Low3.90-5.60[facility] HospitalWBC Auto (Bld) [#/Vol]Ordered By: Chivo Keller on 73-44-5614FBM (Bld) [#/Vol]Leukocytes [#/volume] in Blood by Automated count4.1-10.5FMain Campus Medical CenterERYTHROPOETIN (EPO), SERUMon 38-14-2964XVFKMDOWONJIU (EPO), SERUM30.4 m[iU]/mLHigh2.6 - 18.5 m[iU]/mL NOMS HealthcareComment on above:[place] [employer] DxI 800 Immunoassay System Values obtained with different assay methods or kits cannot be used interchangeably. Results cannot be interpreted as absolute evidence of the presence or absence of malignant disease. Performed at: [address] [id number] Trench Digger: Nathan Munoz PhD, Phone: [phone] Interpretation and review of laboratory resultsAbnoMUSC Health Marion Medical Center HealthcareX-ray reportOrdered By: Sotero Scott on 57-77-0121Aibok report [facility] HospitalXR hip BI w OON5Erp 18-21-7533VQ hip BI w PEL1V [facility] [address] [place] [id number] XRay Report Signed Patient: Delano Oliver MR#: [id number] [birth year] : 1940 Acct:[id number] Age/Sex: 84 / M ADM Date: 02/25/25 Loc: [facility] Room: Type: [facility] Attending Dr: Walker Soria MD Copies to: [...] Jr., D.O. 02/25/2025 2:31 PM Dictation Location: [facility]--22 Transcribed By: CALI 02/25/25 1431 Dictated By: Sotero Scott Jr, DO 02/25/25 1430 Signed By: 02/25/25 1431[facility] Physician GroupAlanine aminotransferase [Enzymatic activity/volume] in Serum or PlasmaOrdered By: Chivo Keller on 24-25-4698RBB [Catalytic activity/Vol]Alanine aminotransferase [Enzymatic activity/volume] in Serum or PlasmaAvita Health System Ontario HospitalALT [Catalytic activity/Vol]10 U/LNormal-[facility] HospitalComment on above:Order Comment: STAT FOR CTPerformed By: #### FE and TIBC, TONY, CMP, [id number] ####[facility] [address] [place] [address] USAAlbumin [Mass/volume] in Serum or Plasma by Bromocresol green (BCG) dye binding methoOrdered By: Chivo Keller on 27-71-8415Uwzgdmu BCG dye [Mass/Vol]Albumin [Mass/volume] in Serum or Plasma by Bromocresol green (BCG) dye binding metho3.5-5.7FMain Campus Medical CenterAlbumin BCG dye [Mass/Vol]4.1 g/dL3.5-5.7FMain Campus Medical CenterAlkaline phosphatase [Enzymatic activity/volume] in Serum or PlasmaOrdered By: Chivo Keller on 31-86-6788SOH [Catalytic activity/Vol]Alkaline phosphatase [Enzymatic activity/volume] in Serum or UnvnsfWjik23-072Gceccjpxm[address] ALP [Catalytic activity/Vol]125 U/OIawi82-013Nctjlifub[address] Comment on above:Order Comment: STAT FOR CTPerformed By: #### FE and TIBC, TONY, CMP, [id number] ####[facility] [address] [place] [address] USAAspartate aminotransferase [Enzymatic activity/volume] in Serum or PlasmaOrdered By: Chivo Keller on 36-07-1168WGQ [Catalytic activity/Vol] Aspartate aminotransferase [Enzymatic activity/volume] in Serum or Fvgstz88-08 [facility] HospitalAST [Catalytic activity/Vol]17 U/NYdxtwb15-59 [facility] HospitalComment on above:Order Comment: STAT FOR CT Performed By: #### FE and TIBC, TONY, CMP, [id number] ####[facility] [address] [place] [address] USABilirubin.total [Mass/volume] in Serum or PlasmaOrdered By: Chivo Keller on 45-67-8424Zvbbrgxlf [Mass/Vol]Bilirubin.total [Mass/volume] in Serum or Plasma0.3-1.0[facility] HospitalBilirubin [Mass/Vol]0.5 mg/dLNormal0.3-1.0[facility] HospitalComment on above:Order Comment: STAT FOR CTPerformed By: #### FE and TIBC, TONY, CMP, [id number] ####[place] [address] [place] [id number] USACARCINOEMBRYONIC ANTIGENon 02-24-2025 Interpretation and review of laboratory resultsAbnoMUSC Health Marion Medical Center HealthcareCEA ser/plasOrdered By: Chivo Keller on 02-24-2025 Carcinoembryonic Ag [Mass/Vol]Serum or plasma carcinoembryonic antigen measurement (mass/volume)High0.0-3.0[facility] HospitalCT abdomen pelvis wo conon 90-67-8065RD abdomen pelvis wo [facility] Main [place] [id number] CT Scan Report Signed Patient: Delano Oliver MR#: [id number] 24 : 1940 Acct:[id number] Age/Sex: 84 / M ADM Date: 02/24/25 Loc: XT Room: Type: [facility] RCR Attending Dr: Chivo Keller II, DO Copies to: Chivo Keller II, DO Ordering Provider: Chivo Keller II, DO Date of Service: 02/24/25 CT/CT chest wo con: D50.9 - Iron deficiency anemia, unspecified ([id number]) CT/CT abdomen pelvis wo con: D50.9 - [...] pelvis. Impression dictated by: Sotero Scott Jr., D.OKeo 02/24/2025 11:32 AM Dictation Location: [place] [address] Transcribed By: [facility] 02/24/25 1132 Dictated By: Sotero Scott Jr, DO 02/24/25 1125 Signed By: 02/24/25 1132[facility] Physician GroupCalcium [Mass/volume] in Serum or PlasmaOrdered By: Chivo Keller on 87-31-1656Cwqgrbo [Mass/Vol]Calcium [Mass/volume] in Serum or Plasma8.6-10.3FMain Campus Medical CenterCalcium [Mass/Vol]9.3 mg/dLNormal8.6-10.3FMain Campus Medical CenterComment on above:Order Comment: STAT FOR CTPerformed By: #### FE and TIBC, TONY, CMP, [id number] ####[place] [address] [place] [id number] USACarbon dioxide, total [Moles/volume] in Serum or PlasmaOrdered By: Chivo Keller on 90-00-2402PC6 [Moles/Vol]Carbon dioxide, total [Moles/volume] in Serum or RjivzhUrln45.0-31.0[facility] HospitalCO2 [Moles/Vol]31.7 mmol/LHigh21.0-31.0[facility] HospitalComment on above:Order Comment: STAT FOR CTPerformed By: #### FE and TIBC, TONY, CMP, [id number] ####[place] [address] [place] Chloride [Moles/volume] in Serum or PlasmaOrdered By: Chivo Keller on 37-06-9010Twhhnxpz [Moles/Vol]Chloride [Moles/volume] in Serum or Bppyof77-324 [facility] HospitalChloride [Moles/Vol]105 mmol/ETdarei67-832 [facility] HospitalComment on above:Order Comment: STAT FOR CT Performed By: #### FE and TIBC, TONY, CMP, [id number] ####[place] [address] USAComprehensive Metabolic Panel on 01-86-1814Quxvugd [Mass/Vol]4.1 g/dLNormal3.5-5.7[facility] Physician GroupComment on above:Order Comment: STAT FOR CTPerformed By: #### FE and TIBC, TONY, CMP, [id number] ####[address] [address] USACreatinine Clr Calc Prvfkvyg48.32NormSelect Medical [facility] Clinic [facility] Hospital, Beachwoode [facility] Physician GroupComment on above:Order Comment: STAT FOR CTPerformed By: #### FE and TIBC, TONY, CMP, [id number] ####[facility] [place] [address] USAEstimated GFR29.659 mL/MinHCA Florida Suwannee Emergency Physician Group Comment on above:Order Comment: STAT FOR CTPerformed By: #### FE and TIBC, TONY, CMP, [id number] ####[facility] [place] [address] USACreatinine [Mass/volume] in Serum or PlasmaOrdered By: Chivo Keller on 19-03-0866Xglbovmlbl [Mass/Vol]Creatinine [Mass/volume] in Serum or PlasmaHigh0.70-1.30[facility] HospitalCreatinine [Mass/Vol]2.17 mg/dLHigh0.70-1.30[facility] HospitalComment on above:Order Comment: STAT FOR CTPerformed By: #### FE and TIBC, TONY, CMP, [id number] ####[place] [address] [place] [address] [place] Erythropoetin (EPO), Serumon 85-66-4850Ezpkanlxoexrz (EPO), Serum30.4 m[iU]/mL High2.6-18.5The [facility] Physician GroupComment on above:Result Comment: [employer] DxI 800 Immunoassay System Values obtained with different assay methods or kits cannot be used interchangeably. Results cannot be interpreted as absolute evidence of the presence or absence of malignant disease. Performed at: [facility] Lab[address] [id number] Trench Digger: Nathan Munoz PhD, Phone: [phone] PERFORMED BY: [facility] [address] [place] [address] PATHOLOGIST ENGAGEMENT LIAISON KRISTEL LU M.D.Performed By: #### RENAL, CBC #### [facility] [address] [place] [address] USAFerritin [Mass/volume] in Serum or PlasmaOrdered By: Chivo Keller on 79-49-2876Adaktsgd [Mass/Vol]Ferritin [Mass/volume] in Serum or CzuglsTsxf24.9-336.2FMain Campus Medical CenterFerritin [Mass/Vol]512.8 ng/aQUura28.9-336.2FMain Campus Medical CenterComment on above:Order Comment: STAT FOR CTPerformed By: #### FE and TIBC, TONY, CMP, [id number] ####[facility] [place] [address] USAFolate [Mass/volume] in Serum or PlasmaOrdered By: Chivo Keller on 91-45-4735Gjqiug [Mass/Vol]Folate [Mass/volume] in Serum or Plasma>5.9[facility] HospitalFolate [Mass/Vol]31.0 ng/mL>5.9[facility] HospitalComment on above:Folate reference range: >5.9 ng/mlThe WHO technical consultation on folate and vitamin s36qwcsiotvqhod has determined that folate concentrations lessthan 4 ng/ml are considered deficient.Globulin Calc (S) [Mass/Vol]Ordered By: Chivo Keller on 41-90-4859Jovidpex (S) [Mass/Vol] Serum globulin measurement by calculation (mass/volume)[facility] HospitalGlucose [Mass/volume] in Serum or PlasmaOrdered By: Chivo Keller on 23-36-2494Wotdikb [Mass/Vol]Glucose [Mass/volume] in Serum or JoweakEult61-291TqwnjvoopAvita Health System Ontario HospitalGlucose [Mass/Vol]122 mg/dLHigh 70-100[facility] HospitalComment on above:ADA recommended reference rangeRandom Glucose Reference Range is dependent on time and content of last meal. Glucose of more than 200 mg/dL in a nonstressed, ambulatory subject supports the diagnosisof Diabetes Mellitus.Order Comment: STAT FOR CT Result Comment: Random Glucose Reference Range is dependent on time and content of last meal. Glucose of more than 200 mg/dL in a nonstressed, ambulatory subject supports the diagnosis of Diabetes Mellitus. ADA recommended reference rangePerformed By: #### FE and TIBC, TONY, CMP, [id number] ####[facility] [address] [place] [address] USAIron [Mass/volume] in Serum or PlasmaOrdered By: Chivo Keller on 49-10-3911[place] [Mass/Vol]Iron [Mass/volume] in Serum or Egljvb19-088NeyddrumrAvita Health System Ontario HospitalIron [Mass/Vol]52 ug/oYUkukct52-044SwianobvzAvita Health System Ontario HospitalComment on above:Order Comment: STAT FOR CTPerformed By: #### FE and TIBC, TONY, CMP, [id number] ####[place] [address] [place] [address] USAIron and TIBC Profileon 02-24-2025% Iron Vusstmetbe58.5 %Bid65-37Mhu [facility] Physician GroupComment on above:Order Comment: STAT FOR CTPerformed By: #### FE and TIBC, OTNY, CMP, [id number] ####[place] [address] [place] [address] USATotal Iron Binding Surupugg318 ug/uLXcablm341-309Ccl [facility] Physician [facility] CenterComment on above:Order Comment: STAT FOR CTPerformed By: #### FE and TIBC, TONY, CMP, [id number] ####[place] [address] [place] [address] USANo Panel Information Ordered By: Chivo Keller on 31-89-9669Ihdfofdzz GFR (CKD-EPI)29.659 mL/Min [facility] HospitalPharmacy Creatinine Clearance (Chem31.32 [facility]29.659 mL/MinAvita Health System [facility] Hospital 31.32[facility] HospitalPotassium [Moles/volume] in Serum or PlasmaOrdered By: Chivo Keller on 93-68-0376Ajkgjxlyj [Moles/Vol]Potassium [Moles/volume] in Serum or Plasma3.5-5.1FMain Campus Medical Center Potassium [Moles/Vol]4.0 mmol/LNormal3.5-5.1FMain Campus Medical Center Comment on above:Order Comment: STAT FOR CTPerformed By: #### FE and TIBC, TONY, CMP, [id number] ####[address] [address] USAProtein [Mass/volume] in Serum or PlasmaOrdered By: Chivo Keller on 52-42-7895Rtfamam [Mass/Vol]Protein [Mass/volume] in Serum or Plasma6.4-8.9 [facility] HospitalProtein [Mass/Vol]7.0 g/dLNormal6.4-8.9 [facility] HospitalComment on above:Order Comment: STAT FOR CT Performed By: #### FE and TIBC, TONY, CMP, [id number] ####[address] [address] USASerum globulin measurement by calculation (mass/volume)Ordered By: Chivo Keller on 57-04-3676Obwwzmnz (S) [Mass/Vol]2.9 g/dLNormalAvita Health System Ontario HospitalComment on above:Order Comment: STAT FOR CTPerformed By: #### FE and TIBC, TONY, CMP, [id number] ####[place] [address] USASerum or plasma albumin/globulin mass ratioOrdered By: Chivo Keller on 02-24-2025 Albumin/Globulin [Mass ratio]Serum or plasma albumin/globulin mass ratio [facility] HospitalAlbumin/Globulin [Mass ratio]1.4 {ratio}Normal [facility] HospitalComment on above:Order Comment: STAT FOR CT Performed By: #### FE and TIBC, TONY, CMP, [id number] ####[place] [address] USASerum or plasma anion gap determinationOrdered By: Chivo Keller on 60-97-3865Odfmp gap [Moles/Vol] Serum or plasma anion gap determination6.0-15.0[facility] Anion gap [Moles/Vol]10.3 mmol/LNormal6.0-15.0[facility] Comment on above:Order Comment: STAT FOR CTPerformed By: #### FE and TIBC, TONY, CMP, [id number] ####[place] [address] USASerum or plasma erythropoietin (EPO) measurement (units/volume)Ordered By: Chivo Keller on 24-55-3729Zhdpuesllxuaew (EPO) QnSerum or plasma erythropoietin (EPO) measurement (units/volume)High2.6-18.5FMain Campus Medical CenterErythropoietin (EPO) Qn30.4 mIU/mLHigh2.6-18.5FMain Campus Medical CenterComment on above:[employer].el DxI 800 Immunoassay SystemValues obtained with different assay methods or kits cannotbe used interchangeably. Results cannot be interpreted asabsolute evidence of the presence or absence of malignantdisease.Performed at: [facility] [id number] Director: Nathan Munoz PhD, Phone: [phone] or plasma iron binding capacity measurement (mass/volume)Ordered By: Chivo Keller on 25-13-2792Qrln binding capacity [Mass/Vol]Iron binding capacity [Mass/volume] in Serum or Ialcke418-796FrrlnawpbAvita Health System Ontario HospitalIron binding capacity [Mass/Vol]267 ug/wR397-535CwhoioakvEast Ohio Regional Hospitalerum or plasma iron saturation measurement (mass fraction)Ordered By: Chivo Keller on 72-15-2236Jdru saturation [Mass fraction]Iron saturation [Mass Fraction] in Serum or LcxdziAtg61-20CwecaystmAvita Health System Ontario HospitalIron saturation [Mass fraction]19.5 %Aer37-89JzqptjmyhEast Ohio Regional Hospitalodium [Moles/volume] in Serum or PlasmaOrdered By: Chivo Keller on 02-24-2025 Sodium [Moles/Vol]Sodium [Moles/volume] in Serum or Yxzpgr846-368LomoiifyhEast Ohio Regional Hospitalodium [Moles/Vol]143 mmol/PElfqey964-480TetdpykdlAvita Health System Ontario HospitalComment on above:Order Comment: STAT FOR CTPerformed By: #### FE and TIBC, TONY, CMP, [id number] ####[facility] [address] [place] [address] USATransferrin [Mass/volume] in Serum or Plasma Ordered By: Chivo Keller on 97-92-8719Qqygknlrbhf [Mass/Vol]Transferrin [Mass/volume] in Serum or BsodbiAjp495-963XxwbuxrhqAvita Health System Ontario Hospital Transferrin [Mass/Vol]191 mg/fLSjd189-910Eieomige[address] Comment on above:Order Comment: STAT FOR CTPerformed By: #### FE and TIBC, TONY, CMP, [id number] ####[place] [address] [place] [address] USAUrea nitrogen [Mass/volume] in Serum or PlasmaOrdered By: Chivo Keller on 71-00-3300Vqar nitrogen [Mass/Vol]Urea nitrogen [Mass/volume] in Serum or Plasma35 Martinez StreetUrea nitrogen [Mass/Vol] 43 mg/dL35 [address] StreetComment on above:Order Comment: STAT FOR CTPerformed By: #### FE and TIBC, TONY, CMP, [id number] ####[place] [address] USAVit. B12/Folate Profileon 41-54-8562Tkebnl96.0 ng/mLNormal>5.9[facility] Comment on above:Order Comment: STAT FOR CTResult Comment: Folate reference range: >5.9 ng/ml The WHO technical consultation on folate and vitamin b12 deficiencies has determined that folate concentrations less than 4 ng/ml are considered deficient. PERFORMED BY: [facility] [address] [place] [id number] PATHOLOGIST ENGAGEMENT LIAISON KRISTEL LU M.D.Performed By: #### FE and TIBC, TONY, CMP, [id number] ####[address] [address] USAVitamin B12 ser/plasOrdered By: Chivo Keller on 51-68-7848Aitwiojak (Vitamin B12) [Mass/Vol]Vitamin B12 ser/ghmw535-584Taebmnukf[address] [place], [place] [address]Cobalamin (Vitamin B12) [Mass/Vol]445 pg/dDMcmbze849-612Cptvwnrkt[address] [place] [address] Comment on above:Order Comment: STAT FOR CTPerformed By: #### FE and TIBC, TONY, CMP, [id number] ####[facility] [address] [place] [address] USACholesterol in LDL Calc [Mass/Vol]on 34-75-5858Ybexbjmopce in LDL [Mass/Vol]Cholesterol in LDL [Mass/volume] in Serum or Plasma by calculation [facility] HospitalCholesterol in LDL [Mass/Vol]74.2 mg/dL [facility] HospitalComment on above:<100 mg/dl YWSASON844-585 mg/dl NEAR OR ABOVE BPVKNTJ267-384 mg/dl BORDERLINE LWBU831-315 mg/dl HIGH>190 mg/dl VERY HIGHCholesterol in VLDL Calc [Mass/Vol]on 53-63-4925Wkrteaqiufz in VLDL [Mass/Vol]Cholesterol in VLDL [Mass/volume] in Serum or Plasma by calculationAvita Health System Ontario HospitalCholesterol in VLDL [Mass/Vol]13.8 mg/dLAvita Health System Ontario HospitalGlucose mean value [Mass/volume] in Blood Estimated from glycated hemoglobinon 21-05-9377Drubplf glucose Estimated from glycated hemoglobin (Bld) [Mass/Vol]Glucose mean value [Mass/volume] in Blood Estimated from glycated hemoglobinAvita Health System Ontario HospitalAverage glucose Estimated from glycated hemoglobin (Bld) [Mass/Vol]126 mg/dLAvita Health System Ontario HospitalHemoglobin A1c percentageon 60-21-2625DbO3i (Bld) [Mass fraction]Hemoglobin A1c percentage4.5-6.2FMain Campus Medical CenterHbA1c (Bld) [Mass fraction]6.0 %4.5-6.2FMain Campus Medical CenterComment on above:ADA RECOMMENDED LIMIT 4.0 - 6.0ADA THERAPEUTIC TARGET < 7.0ACTION SUGGESTED> 7.0Laboratory - Chemistry and Chemistry - challengeon 02-20-2025 Cholesterol [Mass/Vol]135 mg/dL<=200[facility] HospitalCholesterol in HDL [Mass/Vol]47 mg/tL96-50ShucsegoqAvita Health System Ontario HospitalComment on above:> or =60 mg/dl - LOW CARDIOVASCULAR RISK<40 mg/dl - HIGH CARDIOVASCULAR RISKFree T4 [Mass/Vol]0.83 ng/dL0.76-1.46[facility] Triglyceride [Mass/Vol]69 mg/dL<=150[facility] HospitalTSH Qn 19.694 m[IU]/LHigh0.358-3.740[facility] HospitalNo Panel Informationon 00-11-1668Juhpswny Specific Antigen Screen0.98 ng/mL<=4.00 [facility] HospitalTotal Jjhautghxrkaimzl86 ng/cAXamvpwng98-671 [facility] HospitalComment on above:Performed at: - [facility] [id number] Director: Nathan Munoz PhD, Phone: [phone] ng/mOSzrzrmjo65-310AjjinoycvAvita Health System Ontario Hospital0.83 ng/dL0.76-1.46[facility]0.98 ng/mL<=4.00[facility]19.694 u[iU]/mLHigh0.358-3.740[facility]135 mg/dL<=200[facility]47 mg/sG62-09TzejpqlqnAvita Health System Ontario Hospital69 mg/dL<=150East [facility] Regional Hospitalerum or plasma total cholesterol/high density lipoprotein (HDL) cholesterol mass [place] 67-69-8686Daatjbbyttk.total/Cholesterol in HDL [Mass ratio]Serum or plasma total cholesterol/high density lipoprotein (HDL) cholesterol mass [facility] Medical CenterCholesterol.total/Cholesterol in HDL [Mass ratio]2.9 {ratio}[facility] HospitalComment on above:3.3 - 4.4 LOW RISK4.4 - 7.1 AVERAGE RISK7.1 - 11.0 MODERATE RISK>11.0 HIGH AFCV63ox 50-06-557782Dildlfcq by: RUSSEL LYNCH on: 02/14/2025 03:45 PM Modules accepted: OrdersNormalUniversity of St. David'S Medical CenterDocumentationon [id number] Delano Oliver 1940 M Date Provider Department Center 02/14/2025 ENRRIQUE TAVAREZ [facility] Family History Problem Relation Age of Onset Diabetes Mother Heart disease Father Glaucoma Brother Diabetes Maternal Grandmother Clotting disorder Other Family Status - Relation Status Age at Mother Father Brother Maternal Grandmother Other Reason for Visit and Comments: Hypertension [639847][facility]36on Please call patient the week of 02/11/25 for a BP check. Thanks![facility] HospitalTelephoneon [id number] Delano Oliver 1940 M Date Provider Department Center 01/29/2025 ENRRIQUE TAVAREZ Family History Problem Relation Age of Onset Diabetes Mother Heart disease Father Glaucoma Brother Diabetes Maternal Grandmother Clotting disorder Other Family Status - Relation Status Age at Mother Father Brother Maternal Grandmother OtherNormalUniCleveland Clinic Mentor HospitalOffice Visiton 11-08-4257Xloxqe-up [id number] Delano Oliver 1940 M Date Provider Department Center 01/28/2025 ENRRIQUE TAVAREZ Family History Problem Relation Age of Onset Diabetes Mother Heart disease Father Glaucoma Brother Diabetes Maternal Grandmother Clotting disorder Other Family Status - Relation Status Age at Mother Father Brother Maternal Grandmother Other Level of Service:82922 [place] OFFICE/OUTPATIENT ESTABLISHED MOD MDM 30 MIN Reason for Visit and Comments: Atrial Fibrillation [80] Congestive Heart Failure [127] Hypertension [570257][facility] HospitalAlbumin [Mass/volume] in Serum or Plasma by Bromocresol green (BCG) dye binding metho Ordered By: Sotero Black on 31-14-9383Gvtorof BCG dye [Mass/Vol]Albumin [Mass/volume] in Serum or Plasma by Bromocresol green (BCG) dye binding metho 3.5-5.7FMain Campus Medical CenterBasophils Auto (Bld) [#/Vol]Ordered By: Sotero Black on 65-66-2316Ulwcfdepp (Bld) [#/Vol]Automated basophil count0.0-0.2 [facility] HospitalBasophils/100 WBC Auto (Bld)Ordered By: Sotero Black on 80-07-2440Hnsitrpkr/100 WBC (Bld)Automated basophil %.[facility] HospitalCalcium [Mass/volume] in Serum or PlasmaOrdered By: Sotero Black on 46-54-6498Jifforc [Mass/Vol]Calcium [Mass/volume] in Serum or PlasmaLow8.6-10.3FMain Campus Medical CenterCarbon dioxide, total [Moles/volume] in Serum or PlasmaOrdered By: Sotero Black on 84-19-8525SP6 [Moles/Vol]Carbon dioxide, total [Moles/volume] in Serum or Cgbsdr00.0-31.0 [facility] HospitalChloride [Moles/volume] in Serum or Plasma Ordered By: Sotero Black on 58-24-4875Juktihuv [Moles/Vol]Chloride [Moles/volume] in Serum or Rivsnc12-951FusmwgwnqAvita Health System Ontario HospitalComplete Blood Count Auto Diffon 22-32-4577Fdwzenypw (Bld) [#/Vol]0.1 10*3/uLNormal 0.0-0.2[facility] Physician GroupComment on above:Order Comment: Comment results to PCP Dr Linda and [facility] NephroResult Comment: PERFORMED BY: [facility] [address] [place] [address] PATHOLOGIST ENGAGEMENT LIAISON KRISTEL LU M.D.Performed By: #### RENAL, CBC #### [facility] [address] [place] [address] USABasophils/100 WBC (Bld)2.2 %Normal.[facility] Physician GroupComment on above:Order Comment: Comment results to PCP Dr Linda and [facility] NephroPerformed By: #### RENAL, CBC #### [facility] [address] [place] [address] USAEosinophils (Bld) [#/Vol]0.2 10*3/uLNormal0.0-0.45[facility] Physician GroupComment on above:Order Comment: Comment results to PCP Dr Linda and [facility] NephroPerformed By: #### RENAL, CBC #### [facility] [address] [place] [address] USAEosinophils/100 WBC (Bld)2.8 %Normal.[facility] Physician GroupComment on above:Order Comment: Comment results to PCP Dr Linda and [facility] NephroPerformed By: #### RENAL, CBC #### [facility] [address] [place] [address] USAErythrocyte distribution width (RBC) [Ratio]14.7 %Normal 12.0-14.8[facility] Physician GroupComment on above:Order Comment: Comment results to PCP Dr Linda and [facility] NephroPerformed By: #### RENAL, CBC #### [place] [address] USAHematocrit (Bld) [Volume fraction]28.3 %Low38.8-50.0[facility] Physician GroupComment on above:Order Comment: Comment results to PCP Dr Linda and [facility] NephroPerformed By: #### RENAL, CBC #### [place] [address] USAHemoglobin (Bld) [Mass/Vol]9.7 g/dLLow13.0-17.0[facility] Physician GroupComment on above:Order Comment: Comment results to PCP Dr Linda and [facility] NephroPerformed By: #### RENAL, CBC #### [place] [address] USALymphocytes (Bld) [#/Vol]1.2 10*3/uLNormal1.00-4.8The [facility] Physician GroupComment on above:Order Comment: Comment results to PCP Dr Linda and [facility] NephroPerformed By: #### RENAL, CBC #### [place] [id number] USALymphocytes/100 WBC (Bld)18.7 %Normal.The [facility] Physician GroupComment on above:Order Comment: Comment results to PCP Dr Linda and [facility] NephroPerformed By: #### RENAL, CBC #### [place] [address] USAMCH (RBC) [Entitic mass]32.4 gvRvwate20.5-35.2The [facility] Physician GroupComment on above:Order Comment: Comment results to PCP Dr Linda and FPG NephroPerformed By: #### RENAL, CBC #### [facility] [address] [id number] USAMCV (RBC) [Entitic vol]94.1 iTKwfrbb23.5-101The [facility] Physician GroupComment on above:Order Comment: Comment results to PCP Dr Linda and FPG NephroPerformed By: #### RENAL, CBC #### [facility] [address] [place] [address] USAMean Corpuscular HGB Conc34.4 g/qUReigji60.5-35.6The [facility] Physician GroupComment on above:Order Comment: Comment results to PCP Dr Linda and FPG NephroPerformed By: #### RENAL, CBC #### [facility] [address] [place] [address] USAMonocytes (Bld) [#/Vol]0.6 10*3/uLNormal0.0-0.8The [facility] Physician GroupComment on above:Order Comment: Comment results to PCP Dr Linda and FPG NephroPerformed By: #### RENAL, CBC #### [facility] [address] [place] [address] USAMonocytes/100 WBC (Bld)9.4 %Normal.The [facility] Physician GroupComment on above:Order Comment: Comment results to PCP Dr Linda and FPG NephroPerformed By: #### RENAL, CBC #### [place] [address] USANeutrophils (Bld) [#/Vol]4.2 10*3/uLNormal1.8-7.7The [facility] Physician GroupComment on above:Order Comment: Comment results to PCP Dr Linda and FPG NephroPerformed By: #### RENAL, CBC #### [facility] [address] [id number] USANeutrophils/100 WBC (Bld)66.9 %Normal.[facility] Physician GroupComment on above:Order Comment: Comment results to PCP Dr Linda and FPG NephroPerformed By: #### RENAL, CBC #### [facility] [address] [id number] USANRBC%0.1 /100{WBC}Normal0-0.5[facility] Comment on above:Order Comment: Comment results to PCP Dr Linda and FPG Nephro Performed By: #### RENAL, CBC #### [facility] [address] [place] [address] USAPlatelet mean volume (Bld) [Entitic vol]7.7 fLNormal 6.6-10.1The [facility] Physician GroupComment on above:Order Comment: Comment results to PCP Dr Linda and FPG NephroPerformed By: #### RENAL, CBC #### [facility] [address] [place] [address] USAPlatelets (Bld) [#/Vol]287 10*3/nIAfcnnf676-374Snr [facility] Physician GroupComment on above:Order Comment: Comment results to PCP Dr Linda and FPG NephroPerformed By: #### RENAL, CBC #### [facility] [address] [place] [address] USARBC (Bld) [#/Vol]3.01 10*6/uLLow3.90-5.60The [facility] Physician GroupComment on above:Order Comment: Comment results to PCP Dr Linda and FPG NephroPerformed By: #### RENAL, CBC #### [facility] [address] [place] [address] USAWBC (Bld) [#/Vol]6.2 10*3/uLNormal4.1-10.5The [facility] Physician GroupComment on above:Order Comment: Comment results to PCP Dr Linda and FPG NephroPerformed By: #### RENAL, CBC #### [facility] [address] [place] [address] USACreatinine [Mass/volume] in Serum or PlasmaOrdered By: Sotero Black on 38-63-1215Zurpqlqgtc [Mass/Vol]Creatinine [Mass/volume] in Serum or PlasmaHigh0.70-1.30[facility] HospitalEosinophils Auto (Bld) [#/Vol]Ordered By: Sotero Black on 22-69-0677Agrayqesppc (Bld) [#/Vol]Automated eosinophil count0.0-0.45[facility] HospitalEosinophils/100 WBC Auto (Bld)Ordered By: Sotero Black on 41-41-9938Cknmxkqnuoq/100 WBC (Bld) Automated eosinophil %.[facility] HospitalErythrocyte distribution width Auto (RBC) [Ratio]Ordered By: Sotero Black on 08-23-4574Tfwwffqeegh distribution width (RBC) [Ratio]Erythrocyte distribution width [Ratio] by Automated count12.0-14.8[facility] HospitalGlucose [Mass/volume] in Serum or PlasmaOrdered By: Sotero Black on 82-59-4240Pwsudqa [Mass/Vol] Glucose [Mass/volume] in Serum or OrflisBbzw19-734BrsqwkdcmAvita Health System Ontario HospitalHematocrit Auto (Bld) [Volume fraction]Ordered By: Sotero Black on 56-63-6499Rcoduynvur (Bld) [Volume fraction]Hematocrit [Volume Fraction] of Blood by Automated ulcjdLkd38.8-50.0[facility] HospitalHemoglobin [Mass/volume] in BloodOrdered By: Sotero Black on 12-81-4467Eulqugcrlp (Bld) [Mass/Vol]Hemoglobin [Mass/volume] in McvgaAxb40.0-17.0[facility] HospitalLeukocytes [#/volume] corrected for nucleated erythrocytes in Blood by Automated counOrdered By: Sotero Black on 36-14-1143SQZ corrected for nucl RBC Auto (Bld) [#/Vol]Leukocytes [#/volume] corrected for nucleated erythrocytes in Blood by Automated coun4.1-10.5FMain Campus Medical Center Lymphocytes Auto (Bld) [#/Vol]Ordered By: Sotero Black on 24-73-6744Imtztkqtzcr (Bld) [#/Vol]Lymphocytes [#/volume] in Blood by Automated count1.00-4.8[facility] HospitalLymphocytes/100 WBC Auto (Bld)Ordered By: Sotero Black on 74-74-6693Wxrqofhhzjy/100 WBC (Bld)Lymphocytes/100 leukocytes in Blood by Automated count.[facility] HospitalMCH Auto (RBC) [Entitic mass] Ordered By: Sotero Black on 94-98-4835WSH (RBC) [Entitic mass]MCH [Entitic mass] by Automated count27.5-35.2FMain Campus Medical CenterMCHC Auto (RBC) [Mass/Vol]Ordered By: Sotero Black on 96-86-9796ATUM (RBC) [Mass/Vol]MCHC [Mass/volume] by Automated count32.5-35.6FMain Campus Medical CenterMCV Auto (RBC) [Entitic vol]Ordered By: Sotero Black on 24-65-0898UTP (RBC) [Entitic vol]MCV [Entitic volume] by Automated count83.5-101[facility] HospitalMonocytes Auto (Bld) [#/Vol]Ordered By: Sotero Black on 01-16-2025 Monocytes (Bld) [#/Vol]Automated blood monocyte count0.0-0.8[facility] HospitalMonocytes/100 WBC Auto (Bld)Ordered By: Sotero Black on 01-16-2025 Monocytes/100 WBC (Bld)Automated monocyte %.[facility] Neutrophils Auto (Bld) [#/Vol]Ordered By: Sotero Black on 19-98-4057Mfmvrbeskom (Bld) [#/Vol]Neutrophils [#/volume] in Blood by Automated count1.8-7.7FMain Campus Medical CenterNeutrophils/100 WBC Auto (Bld)Ordered By: Sotero Black on 63-78-1376Gssxcchixxi/100 WBC (Bld)Automated neutrophil %.[facility] HospitalNo Panel InformationOrdered By: Sotero Black on 38-70-240670.209 mL/MinAvita Health System Ontario HospitalN/AFMain Campus Medical Center Nucleated erythrocytes [Presence] in Blood by Automated countOrdered By: Sotero Black on 17-40-9370Qqgasvdsx RBC Auto Ql (Bld)Nucleated erythrocytes [Presence] in Blood by Automated count0-0.5FMain Campus Medical CenterPhosphate [Mass/volume] in Serum or PlasmaOrdered By: Sotero Black on 26-12-2304Qdppndybi [Mass/Vol]Phosphate [Mass/volume] in Serum or Plasma2.5-4.5FMain Campus Medical CenterPlatelet mean volume Auto (Bld) [Entitic vol]Ordered By: Sotero Black on 84-27-5682[place] mean volume (Bld) [Entitic vol]Platelet mean volume [Entitic volume] in Blood by Automated count6.6-10.1FMain Campus Medical CenterPlatelets Auto (Bld) [#/Vol]Ordered By: Sotero Black on 01-16-2025 Platelets (Bld) [#/Vol]Platelets [#/volume] in Blood by Automated -562 [facility] HospitalPotassium [Moles/volume] in Serum or Plasma Ordered By: Sotero Black on 30-85-7389Qkfalcmlb [Moles/Vol]Potassium [Moles/volume] in Serum or Plasma3.5-5.1FMain Campus Medical CenterRBC Auto (Bld) [#/Vol]Ordered By: Sotero Black on 21-31-4350XPC (Bld) [#/Vol] Erythrocytes [#/volume] in Blood by Automated countLow3.90-5.60[facility] HospitalRenal Function Panelon 67-30-9747Xurgyaf [Mass/Vol]3.7 g/dLNormal3.5-5.7The [facility] Physician GroupComment on above:Order Comment: Comment results to PCP Dr Linda and [facility] NephroResult Comment: PERFORMED BY: [place] [address] PATHOLOGIST ENGAGEMENT LIAISON KRISTEL LU M.D.Performed By: #### RENAL, CBC #### [facility] [address] [place] [address] USAAnion gap [Moles/Vol]12.3 mmol/LNormal6.0-15.0The [facility] Physician GroupComment on above:Order Comment: Comment results to PCP Dr Linda and FPG NephroPerformed By: #### RENAL, CBC #### [facility] [address] [place] [address] USACalcium [Mass/Vol]7.8 mg/dLLow8.6-10.3The [facility] Physician GroupComment on above:Order Comment: Comment results to PCP Dr Linda and FPG NephroPerformed By: #### RENAL, CBC #### [facility] [address] [address] USAChloride [Moles/Vol]104 mmol/JHdtnsm08-829Uka [facility] Physician GroupComment on above:Order Comment: Comment results to PCP Dr Linda and FPG NephroPerformed By: #### RENAL, CBC #### [facility] [address] [address] USACO2 [Moles/Vol]28.6 mmol/MKldxid12.0-31.0The [facility] Physician GroupComment on above:Order Comment: Comment results to PCP Dr Linda and FPG NephroPerformed By: #### RENAL, CBC #### [facility] [address] [id number] USACreatinine [Mass/Vol]2.57 mg/dLHigh0.70-1.30The [facility] Physician GroupComment on above:Order Comment: Comment results to PCP Dr Linda and FPG NephroPerformed By: #### RENAL, CBC #### [facility] [address] [place] [address] USAEstimated GFR24.209 mL/MinNormalThe [facility] Hospital Physician GroupComment on above:Order Comment: Comment results to PCP Dr Linda and FPG NephroPerformed By: #### RENAL, CBC #### [facility] [address] [address] USAGlucose [Mass/Vol]117 mg/dKYqma72-456Qrw [facility] Physician GroupComment on above:Order Comment: Comment results to PCP Dr Linda and FPG NephroResult Comment: Random Glucose Reference Range is dependent on time and content of last meal. Glucose of more than 200 mg/dL in a nonstressed, ambulatory subject supports the diagnosis of Diabetes Mellitus. ADA recommended reference rangePerformed By: #### RENAL, CBC #### [facility] [address] [place] [address] USAPhosphate [Mass/Vol]3.5 mg/dLNormal2.5-4.5The [facility] Physician GroupComment on above:Order Comment: Comment results to PCP Dr Linda and FPG NephroPerformed By: #### RENAL, CBC #### [facility] [address] [address] USAPotassium [Moles/Vol]3.9 mmol/LNormal3.5-5.1The [facility] Physician GroupComment on above:Order Comment: Comment results to PCP Dr Linda and FPG NephroPerformed By: #### RENAL, CBC #### [facility] [address] [place] [address] USASodium [Moles/Vol]141 mmol/PAlwyfe599-960Wve [facility] Physician GroupComment on above:Order Comment: Comment results to PCP Dr Linda and FPG NephroPerformed By: #### RENAL, CBC #### [facility] [address] [address] USAUrea nitrogen [Mass/Vol]45 mg/dLHigh7-25The [facility] Physician GroupComment on above:Order Comment: Comment results to PCP Dr Linda and FPG NephroPerformed By: #### RENAL, CBC #### [facility] [address] [address] USASerum or plasma anion gap determinationOrdered By: Sotero Black on 93-97-3778Mmqcv gap [Moles/Vol]Serum or plasma anion gap determination 6.0-15.0[facility] Hospitalodium [Moles/volume] in Serum or PlasmaOrdered By: Sotero Black on 39-92-1885Qejwvr [Moles/Vol]Sodium [Moles/volume] in Serum or Cucgyi818-355QwiwxqzafAvita Health System Ontario HospitalUrea nitrogen [Mass/volume] in Serum or PlasmaOrdered By: Sotero Black on 01-16-2025 Urea nitrogen [Mass/Vol]Urea nitrogen [Mass/volume] in Serum or PlasmaHigh7-25 [facility] HospitalWBC Auto (Bld) [#/Vol]Ordered By: Sotero Black on 08-42-2970SZR (Bld) [#/Vol]Leukocytes [#/volume] in Blood by Automated count 4.1-10.5FMain Campus Medical CenterX-ray reportOrdered By: Sotero Scott on 01-56-3762Xyihl reportAvita Health System Ontario HospitalXR hip RT min 2V(w/wo pelvis)*on 05-44-9277JQ hip RT min 2V(w/wo pelvis)*[facility] [address] [place] [id number] XRay Report Signed Patient: Delano Oliver MR#: [id number] [birth year] : 1940 Acct:[id number] Age/Sex: 84 / M ADM Date: 01/14/25 Loc: [facility] Room: Type: [facility] Attending Dr: Walker Soria MD Copies to: [...] COMPLICATION.. Impression dictated by: Sotero Scott Jr., DKeoOKeo01/14/2025 3:42 PM Dictation Location: [place] [address] Transcribed By: [facility] 01/14/25 1542 Dictated By: Sotero Scott Jr, DO 01/14/25 1542 Signed By: 01/14/25 1542[facility] Phys[facility] GroupAlbumin [Mass/volume] in Serum or Plasma by Bromocresol green (BCG) dye binding methoOrdered By: Sotero Black on 76-51-9979Assxyfp BCG dye [Mass/Vol]Albumin [Mass/volume] in Serum or Plasma by Bromocresol green (BCG) dye binding methoLow3.5-5.7FMain Campus Medical CenterBasophils Auto (Bld) [#/Vol]Ordered By: Sotero Black on 01-10-2025 Basophils (Bld) [#/Vol]Automated basophil count0.0-0.2FMain Campus Medical CenterBasophils/100 WBC Auto (Bld)Ordered By: Sotero Black on 01-10-2025 Basophils/100 WBC (Bld)Automated basophil %.[facility] Calcium [Mass/volume] in Serum or PlasmaOrdered By: Sotero Black on 01-10-2025 Calcium [Mass/Vol]Calcium [Mass/volume] in Serum or PlasmaLow8.6-10.3FMain Campus Medical CenterCarbon dioxide, total [Moles/volume] in Serum or Plasma Ordered By: Sotero Black on 17-01-3659DP5 [Moles/Vol]Carbon dioxide, total [Moles/volume] in Serum or Xliwia20.0-31.0[facility] Chloride [Moles/volume] in Serum or PlasmaOrdered By: Sotero Black on 01-10-2025 Chloride [Moles/Vol]Chloride [Moles/volume] in Serum or Dyjtef45-934EmwbrmauqAvita Health System Ontario HospitalComplete Blood Count Auto Diffon 17-37-5212Gxddnszmj (Bld) [#/Vol]0.0 10*3/uLNormal0.0-0.2The [facility] Physician GroupComment on above:Result Comment: PERFORMED BY: [facility] [address] [place] [address] PATHOLOGIST ENGAGEMENT LIAISON KRISTEL LU M.D.Performed By: #### RENAL, CBC ####[address] [place], [place] [address]DZUBqnuisked/100 WBC (Bld)0.5 % Normal.The [facility] Physician GroupComment on above:Performed By: #### RENAL, CBC ####[address] [place], [place] [address]GDC Eosinophils (Bld) [#/Vol]0.2 10*3/uLNormal0.0-0.45[facility] Comment on above:Performed By: #### RENAL, CBC ####[facility] [place], [place] [address]CEOQnmfvspicrn/100 WBC (Bld)2.6 %Normal. The [facility] Physician GroupComment on above:Performed By: #### RENAL, CBC ####[facility] [place], [place] [address]QQC Erythrocyte distribution width (RBC) [Ratio]15.0 %High12.0-14.8The [facility] Physician GroupComment on above:Performed By: #### RENAL, CBC ####[address] [place], [place] [address]LWFMikdfbazoh (Bld) [Volume fraction]24.3 %Low38.8-50.0The [facility] Physician GroupComment on above:Performed By: #### RENAL, CBC ####[address] [address]VMCOxefeozncb (Bld) [Mass/Vol]8.2 g/dLLow13.0-17.0The [facility] Physician GroupComment on above:Performed By: #### RENAL, CBC ####[address] [address]TFP Lymphocytes (Bld) [#/Vol]0.9 10*3/uLLow1.00-4.8The [facility] Comment on above:Performed By: #### RENAL, CBC ####[address] [address]YPRKpeedbldfio/100 WBC (Bld)14.9 %Normal. The [facility] Physician GroupComment on above:Performed By: #### RENAL, CBC ####[address] [address]PNZHZG (RBC) [Entitic mass]31.8 tjMjtziw46.5-35.2The [facility] Physician GroupComment on above:Performed By: #### RENAL, CBC ####[address] [address]GZMKYP (RBC) [Entitic vol]94.3 bCOciycc10.5-101The [facility] Physician GroupComment on above:Performed By: #### RENAL, CBC ####[address] [address]EJHRpiw Corpuscular HGB Conc33.7 g/jWKcyrst28.5-35.6The [facility] Physician GroupComment on above:Performed By: #### RENAL, CBC ####[address] [address]NQIMthzzwzrv (Bld) [#/Vol]0.7 10*3/uLNormal0.0-0.8 The [facility] Physician GroupComment on above:Performed By: #### RENAL, CBC ####[facility] [place], [place] [address]QUW Monocytes/100 WBC (Bld)11.5 %Normal.The [facility] Physician GroupComment on above:Performed By: #### RENAL, CBC ####[address] [place], [place] [address]ICRHidgqdbchoe (Bld) [#/Vol]4.4 10*3/uLNormal1.8-7.7The [facility] Physician GroupComment on above:Performed By: #### RENAL, CBC ####[address] [place], [place] [address]RHO Neutrophils/100 WBC (Bld)70.5 %Normal.The [facility] Physician GroupComment on above:Performed By: #### RENAL, CBC ####[address] [place], [place] [address]LYIZBYU%0.1 /100{WBC}Normal0-0.5The [facility] Physician GroupComment on above:Performed By: #### RENAL, CBC ####[address] [place], [place] [address]PSTDdlsrasr mean volume (Bld) [Entitic vol]6.9 fLNormal6.6-10.1The [facility] Physician GroupComment on above: Performed By: #### RENAL, CBC ####[address] [address]OALGdeahzxma (Bld) [#/Vol]323 10*3/oEXgqkoh263-503Evk [facility] Physician GroupComment on above:Performed By: #### RENAL, CBC ####[address] [address]AJEFWT (Bld) [#/Vol]2.58 10*6/uLLow3.90-5.60The [facility] Physician GroupComment on above:Performed By: #### RENAL, CBC ####[address] [address]FWYKGK (Bld) [#/Vol]6.3 10*3/uLNormal4.1-10.5The [facility] Physician GroupComment on above:Performed By: #### RENAL, CBC ####[facility] [address] [place], [place] [address]TDO Creatinine [Mass/volume] in Serum or PlasmaOrdered By: Sotero lBack on 24-69-8097Wiixqlmfqt [Mass/Vol]Creatinine [Mass/volume] in Serum or PlasmaHigh 0.70-1.30[facility] HospitalEosinophils Auto (Bld) [#/Vol]Ordered By: Sotero Black on 20-49-3014Qtujtkujvfb (Bld) [#/Vol]Automated eosinophil count0.0-0.45[facility] HospitalEosinophils/100 WBC Auto (Bld) Ordered By: Sotero Black on 65-50-5655Ifrxwqjerck/100 WBC (Bld)Automated eosinophil %.[facility] HospitalErythrocyte distribution width Auto (RBC) [Ratio]Ordered By: Sotero Black on 82-62-6890Mskiywnjcai distribution width (RBC) [Ratio]Erythrocyte distribution width [Ratio] by Automated count High12.0-14.8[facility] HospitalGlucose [Mass/volume] in Serum or PlasmaOrdered By: Sotero Black on 05-25-4721Hqebozn [Mass/Vol]Glucose [Mass/volume] in Serum or Iyjxgb30-074WusvfuhqcAvita Health System Ontario Hospital Hematocrit Auto (Bld) [Volume fraction]Ordered By: Sotero Black on 01-10-2025 Hematocrit (Bld) [Volume fraction]Hematocrit [Volume Fraction] of Blood by Automated vcpqjWiw77.8-50.0[facility] HospitalHemoglobin [Mass/volume] in BloodOrdered By: Sotero Black on 96-06-0361Chbybaejaq (Bld) [Mass/Vol]Hemoglobin [Mass/volume] in PtlxbRfs83.0-17.0[facility] HospitalLeukocytes [#/volume] corrected for nucleated erythrocytes in Blood by Automated counOrdered By: Sotero Black on 61-40-0894GVJ corrected for nucl RBC Auto (Bld) [#/Vol]Leukocytes [#/volume] corrected for nucleated erythrocytes in Blood by Automated coun4.1-10.5FMain Campus Medical Center Lymphocytes Auto (Bld) [#/Vol]Ordered By: Sotero Black on 72-94-3739Tqmxqeqlvhb (Bld) [#/Vol]Lymphocytes [#/volume] in Blood by Automated countLow1.00-4.8 [facility] HospitalLymphocytes/100 WBC Auto (Bld)Ordered By: Sotero Black on 49-31-5926Jzgvdgebguv/100 WBC (Bld)Lymphocytes/100 leukocytes in Blood by Automated count.[facility] HospitalMCH Auto (RBC) [Entitic mass]Ordered By: Sotero Black on 26-07-0856JJE (RBC) [Entitic mass]MCH [Entitic mass] by Automated count27.5-35.2FMain Campus Medical CenterMCHC Auto (RBC) [Mass/Vol]Ordered By: Sotero Black on 98-38-4484LMAJ (RBC) [Mass/Vol] MCHC [Mass/volume] by Automated count32.5-35.6FMain Campus Medical Center MCV Auto (RBC) [Entitic vol]Ordered By: Sotero Black on 22-93-1586VLE (RBC) [Entitic vol]MCV [Entitic volume] by Automated count83.5-101[facility] HospitalMonocytes Auto (Bld) [#/Vol]Ordered By: Sotero Black on 01-10-2025 Monocytes (Bld) [#/Vol]Automated blood monocyte count0.0-0.8[facility] HospitalMonocytes/100 WBC Auto (Bld)Ordered By: Sotero Black on 01-10-2025 Monocytes/100 WBC (Bld)Automated monocyte %.[facility] Neutrophils Auto (Bld) [#/Vol]Ordered By: Sotero Black on 01-18-1650Zjhfljhcaqk (Bld) [#/Vol]Neutrophils [#/volume] in Blood by Automated count1.8-7.7FMain Campus Medical CenterNeutrophils/100 WBC Auto (Bld)Ordered By: Sotero Black on 10-87-5956Wxctrwrlkjq/100 WBC (Bld)Automated neutrophil %.[facility] HospitalNo Panel InformationOrdered By: Sotero Black on 26-80-792544.816 mL/MinAvita Health System Ontario Hospital28.42[facility] Nucleated erythrocytes [Presence] in Blood by Automated countOrdered By: Sotero Black on 34-63-3758Yhflvylbe RBC Auto Ql (Bld)Nucleated erythrocytes [Presence] in Blood by Automated count0-0.5FMain Campus Medical CenterPhosphate [Mass/volume] in Serum or PlasmaOrdered By: Sotero Black on 15-60-7374Rvqbipzex [Mass/Vol]Phosphate [Mass/volume] in Serum or Plasma2.5-4.5FMain Campus Medical CenterPlatelet mean volume Auto (Bld) [Entitic vol]Ordered By: Sotero Black on 85-40-6899Iygcowsk mean volume (Bld) [Entitic vol]Platelet mean volume [Entitic volume] in Blood by Automated count6.6-10.1FMain Campus Medical CenterPlatelets Auto (Bld) [#/Vol]Ordered By: Sotero Black on 01-10-2025 Platelets (Bld) [#/Vol]Platelets [#/volume] in Blood by Automated iamnc961-978 [facility] HospitalPotassium [Moles/volume] in Serum or Plasma Ordered By: Sotero Black on 81-29-6315Aflnlnafx [Moles/Vol]Potassium [Moles/volume] in Serum or Plasma3.5-5.1FMain Campus Medical CenterRBC Auto (Bld) [#/Vol]Ordered By: Sotero Black on 08-92-5204YJM (Bld) [#/Vol] Erythrocytes [#/volume] in Blood by Automated countLow3.90-5.60[facility] HospitalRenal Function Panelon 38-29-8308Rrhooqz [Mass/Vol]3.1 g/dLLow3.5-5.7The [facility] Physician GroupComment on above:Performed By: #### RENAL, CBC ####[facility] [address] [place] [address] USAAnion gap [Moles/Vol]10.4 mmol/LNormal6.0-15.0[facility] Comment on above:Performed By: #### RENAL, CBC ####[facility] [address] [place], [place] [address]CWXOmcszyk [Mass/Vol]7.9 mg/dLLow8.6-10.3 The [facility] Physician GroupComment on above:Performed By: #### RENAL, CBC ####[address] [place], [place] [address]DKXTfknjayj [Moles/Vol]106 mmol/HOesecs83-470Xew [facility] Physician [facility] Medical CenterComment on above: Performed By: #### RENAL, CBC ####[address] [place], [place] [address]BZAFE4 [Moles/Vol]26.5 mmol/PZczpfh81.0-31.0The [facility] Physician GroupComment on above:Performed By: #### RENAL, CBC ####[address] [place], [place] [address]POG Creatinine [Mass/Vol]2.36 mg/dLHigh0.70-1.30The [facility] Physician GroupComment on above:Performed By: #### RENAL, CBC ####[address] [place], [place] [address]XLTClencbwcla Clr Calc Anyrfssq96.42NormalThe [facility] Hospital Physician GroupComment on above:Result Comment: PERFORMED BY: [facility] [address] [place] [address] PATHOLOGIST ENGAGEMENT LIAISON KRISTEL LU M.D.Performed By: #### RENAL, CBC ####[address] [place], [place] [address]ZGAQrgmbiliu GFR26.816 mL/Min NormalThe [facility] Physician [facility] Medical CenterComment on above:Performed By: #### RENAL, CBC ####[address] [place], [place] [address]NYQ Glucose [Mass/Vol]89 mg/gOCdijki66-327Nky [facility] Physician GroupComment on above:Result Comment: Random Glucose Reference Range is dependent on time and content of last meal. Glucose of more than 200 mg/dL in a nonstressed, ambulatory subject supports the diagnosis of Diabetes Mellitus. ADA recommended reference rangePerformed By: #### RENAL, CBC ####[address] [address]QJIYhkwcoksq [Mass/Vol] 3.9 mg/dLNormal2.5-4.5The [facility] Physician GroupComment on above:Performed By: #### RENAL, CBC ####[facility] [address] [place], [place] [address]GPAEvlspfrdo [Moles/Vol]3.9 mmol/LNormal3.5-5.1The [facility] Physician GroupComment on above:Performed By: #### RENAL, CBC ####[facility] [address] [place], [place] [address]RBFVdqacq [Moles/Vol]139 mmol/L Dojycx217-268Tlu [facility] Physician GroupComment on above:Performed By: #### RENAL, CBC ####[facility] [id number] [place] [address] USAUrea nitrogen [Mass/Vol]41 mg/dLHigh7-25The [facility] Physician GroupComment on above:Performed By: #### RENAL, CBC ####[facility] [id number] [place], [place] [address]WAFJbjyp or plasma anion gap determinationOrdered By: Sotero Black on 95-01-3605Ymjjl gap [Moles/Vol]Serum or plasma anion gap determination6.0-15.0[facility] Hospitalodium [Moles/volume] in Serum or PlasmaOrdered By: Sotero Black on 21-95-9038Rcnmrq [Moles/Vol]Sodium [Moles/volume] in Serum or Khlpxs530-265NmhoayuixAvita Health System Ontario HospitalUrea nitrogen [Mass/volume] in Serum or PlasmaOrdered By: Sotero Black on 01-10-2025 Urea nitrogen [Mass/Vol]Urea nitrogen [Mass/volume] in Serum or PlasmaHigh7-25 [facility] HospitalWBC Auto (Bld) [#/Vol]Ordered By: Sotero Black on 43-16-9490KWC (Bld) [#/Vol]Leukocytes [#/volume] in Blood by Automated count 4.1-10.5FMain Campus Medical CenterRenal Function Panelon 01-08-2025 Albumin [Mass/Vol]3.0 g/dLLow3.5-5.7The [facility] Physician GroupComment on above:Performed By: #### RENAL ####[address] [address] USAAnion gap [Moles/Vol]9.4 mmol/LNormal6.0-15.0The [facility] Physician GroupComment on above:Performed By: #### RENAL ####[address] [address] USACalcium [Mass/Vol] 7.6 mg/dLLow8.6-10.3The [facility] Physician GroupComment on above:Performed By: #### RENAL ####[address] [address] USAChloride [Moles/Vol]108 mmol/GBdrq52-039Btx [facility] Physician GroupComment on above:Performed By: #### RENAL ####[address] [address] USACO2 [Moles/Vol]26.8 mmol/AKcnucw76.0-31.0The [facility] Physician GroupComment on above:Performed By: #### RENAL ####[address] [address] USACreatinine [Mass/Vol]1.96 mg/dLHigh0.70-1.30The [facility] Physician [facility] Medical CenterComment on above: Performed By: #### RENAL ####[address] [address] USACreatinine Clr Calc Jqatpjes31.78NormalThe [facility] Hospital Physician GroupComment on above:Result Comment: PERFORMED BY: [facility] [address] [facility] [place] [address] PATHOLOGIST ENGAGEMENT LIAISON KRISTEL LU M.D.Performed By: #### RENAL ####[address] [address] USAEstimated GFR33.511 mL/Min NormalThe [facility] Physician [facility] Medical CenterComment on above:Performed By: #### RENAL ####[address] [address] USAGlucose [Mass/Vol]108 mg/rDPjbz38-789Nro [facility] Physician GroupComment on above: Result Comment: Random Glucose Reference Range is dependent on time and content of last meal. Glucose of more than 200 mg/dL in a nonstressed, ambulatory subject supports the diagnosis of Diabetes Mellitus. ADA recommended reference rangePerformed By: #### RENAL ####[address] [address] USAPhosphate [Mass/Vol]3.5 mg/dL Normal2.5-4.5The [facility] Physician GroupComment on above:Performed By: #### RENAL ####[address] [address] [place] Potassium [Moles/Vol]4.2 mmol/LNormal3.5-5.1The [facility] Physician GroupComment on above:Performed By: #### RENAL ####[address] [address] USASodium [Moles/Vol]140 mmol/VEfznrw395-582Xgc [facility] Physician GroupComment on above:Performed By: #### RENAL ####[address] [address] USAUrea nitrogen [Mass/Vol]39 mg/dLHigh7-25The [facility] Physician GroupComment on above: Performed By: #### RENAL ####[address] [address] USAHemoglobin and Hematocriton 11-90-7334Jeyihdnkxu (Bld) [Volume fraction]23.3 %Low38.8-50.0The [facility] Physician GroupComment on above:Result Comment: PERFORMED BY: [facility] [address] [facility]AMPUSBelKeo [place] [id number] PATHOLOGIST ENGAGEMENT LIAISON KRISTEL LU M.D.Performed By: #### HH ####[address] [address] USAHemoglobin (Bld) [Mass/Vol]8.0 g/dLLow 13.0-17.0The [facility] Physician GroupComment on above:Performed By: #### HH ####[place] [id number] USABasic Metabolic Panelon 21-49-9503Wlqbt gap [Moles/Vol]9.8 mmol/LNormal6.0-15.0The [facility] Physician GroupComment on above:Performed By: #### BMP ####[place] [address] [place] [address] USACalcium [Mass/Vol]8.2 mg/dLLow8.6-10.3The [facility] Physician GroupComment on above:Performed By: #### BMP ####[address] [address] USAChloride [Moles/Vol]105 mmol/MNbxnne82-499Cyo [facility] Comment on above:Performed By: #### BMP ####[address] [address] USACO2 [Moles/Vol]28.4 mmol/OMsmbjq89.0-31.0The [facility] Physician GroupComment on above:Performed By: #### BMP ####[address] [address] USACreatinine [Mass/Vol] 2.36 mg/dLHigh0.70-1.30The [facility] Physician GroupComment on above:Performed By: #### BMP ####[address] [address] USACreatinine Clr Calc Lyqybtzc63.43NoLifeCare Hospitals of North [facility] Physician Group Comment on above:Result Comment: PERFORMED BY: [facility] [address] [place] [address] PATHOLOGIST ENGAGEMENT LIAISON KRISTEL LU M.D.Performed By: #### BMP ####[address] [address] USAEstimated GFR26.816 mL/MinNoLifeCare Hospitals of North Carolina Physician [facility] Medical CenterComment on above:Performed By: #### BMP ####[address] [address] USAGlucose [Mass/Vol]106 mg/eEXwtn81-637Olr [facility] Physician GroupComment on above:Result Comment: Random Glucose Reference Range is dependent on time and content of last meal. Glucose of more than 200 mg/dL in a nonstressed, ambulatory subject supports the diagnosis of Diabetes Mellitus. ADA recommended reference rangePerformed By: #### BMP ####[place] [address] USAPotassium [Moles/Vol]4.2 mmol/LNormal3.5-5.1The [facility] Physician GroupComment on above:Performed By: #### BMP ####[place] [address] USASodium [Moles/Vol]139 mmol/XKiroth792-817Gmu [facility] Physician GroupComment on above:Performed By: #### BMP ####[place] [address] USAUrea nitrogen [Mass/Vol]55 mg/dLHigh7-25The [facility] Physician GroupComment on above:Performed By: #### BMP ####[place] [address] USAHemogram CBC Without Diffon 93-26-3200Evyppqlljqy distribution width (RBC) [Ratio]14.7 %Normal 12.0-14.8The [facility] Physician GroupComment on above:Performed By: #### CBCNO ####[place] [address] [place] Hematocrit (Bld) [Volume fraction]21.9 %Low38.8-50.0The [facility] Physician GroupComment on above:Performed By: #### CBCNO ####[place] [address] USAHemoglobin (Bld) [Mass/Vol]7.5 g/dLLow 13.0-17.0The [facility] Physician GroupComment on above:Performed By: #### CBCNO ####[place] [address] USAMCH (RBC) [Entitic mass]32.5 upOvcfws43.5-35.2The [facility] Physician GroupComment on above:Performed By: #### CBCNO ####[address] [place] [address] USAMCV (RBC) [Entitic vol]94.4 xOGnrvsr74.5-101The [facility] Physician GroupComment on above:Performed By: #### CBCNO ####[place] [id number] USAMean Corpuscular HGB Conc34.4 g/rQSjxfoc04.5-35.6The [facility] Physician GroupComment on above: Performed By: #### CBCNO ####[place] [id number] USAPlatelet mean volume (Bld) [Entitic vol]6.7 fLNormal 6.6-10.1The [facility] Physician GroupComment on above:Result Comment: PERFORMED BY: [facility] [address] [facility] [place] [address] PATHOLOGIST ENGAGEMENT LIAISON KRISTEL LU M.D.Performed By: #### CBCNO ####[place] [id number] USAPlatelets (Bld) [#/Vol]350 10*3/tQZasjtf925-253Qlb [facility] Physician GroupComment on above:Performed By: #### CBCNO ####[place] [id number] USARBC (Bld) [#/Vol]2.32 10*6/uLLow3.90-5.60The [facility] Comment on above:Performed By: #### CBCNO ####[place] [address] USAWBC (Bld) [#/Vol]8.0 10*3/uLNormal4.1-10.5The [facility] Physician GroupComment on above:Performed By: #### CBCNO ####[place] [id number] USABasic Metabolic Panelon 18-30-3438Vcqng gap [Moles/Vol]10.8 mmol/LNormal6.0-15.0The [facility] Physician GroupComment on above:Performed By: #### RENAL, CBC #### [facility] [address] [place] [address] USACalcium [Mass/Vol]7.6 mg/dLLow8.6-10.3The [facility] Physician GroupComment on above:Performed By: #### RENAL, CBC #### [facility] [address] [place] [address] USAChloride [Moles/Vol]104 mmol/LCuqydu36-411Pcz [facility] Physician GroupComment on above:Performed By: #### RENAL, CBC #### [place] [address] USACO2 [Moles/Vol]28.5 mmol/EAxizjj21.0-31.0The [facility] Physician GroupComment on above:Performed By: #### RENAL, CBC #### [place] [address] USACreatinine [Mass/Vol]2.73 mg/dLHigh0.70-1.30The [facility] Physician GroupComment on above:Performed By: #### RENAL, CBC #### [place] [address] USACreatinine Clr Calc Ymfsnoww75.47NoLifeCare Hospitals of North Carolina Physician GroupComment on above:Result Comment: PERFORMED BY: [place] [address] PATHOLOGIST ENGAGEMENT LIAISON KRISTEL LU M.D.Performed By: #### RENAL, CBC #### [place] [address] USAEstimated GFR22.517 mL/MinNoLifeCare Hospitals of North Carolina Physician [facility] Medical CenterComment on above:Performed By: #### RENAL, CBC #### [place] [address] USAGlucose [Mass/Vol]107 mg/uGFsdq15-891Gcy [facility] Physician GroupComment on above:Result Comment: Random Glucose Reference Range is dependent on time and content of last meal. Glucose of more than 200 mg/dL in a nonstressed, ambulatory subject supports the diagnosis of Diabetes Mellitus. ADA recommended reference rangePerformed By: #### RENAL, CBC #### [facility] [address] [place] [address] USAPotassium [Moles/Vol]4.3 mmol/LNormal3.5-5.1The [facility] Physician GroupComment on above:Performed By: #### RENAL, CBC #### [place] [address] USASodium [Moles/Vol]139 mmol/QPscqgv401-417Wvn [facility] Physician GroupComment on above:Performed By: #### RENAL, CBC #### [place] [address] USAUrea nitrogen [Mass/Vol]64 mg/dLHigh7-25The [facility] Physician GroupComment on above:Performed By: #### RENAL, CBC #### [place] [address] USAHemogram CBC Without Diffon 48-45-5767Rlwghfeqfpc distribution width (RBC) [Ratio]14.7 %Oohrev52.0-14.8The [facility] Physician GroupComment on above:Performed By: #### RENAL, CBC #### [place] [address] USAHematocrit (Bld) [Volume fraction]22.4 %Low38.8-50.0The [facility] Physician GroupComment on above:Performed By: #### RENAL, CBC #### [place] [address] USAHemoglobin (Bld) [Mass/Vol]7.9 g/dLLow13.0-17.0The [facility] Physician GroupComment on above:Performed By: #### RENAL, CBC #### [place] [address] USAMCH (RBC) [Entitic mass]32.9 nmCnbocr31.5-35.2The [facility] Physician GroupComment on above:Performed By: #### RENAL, CBC #### [place] [address] USAMCV (RBC) [Entitic vol]93.6 cCRnnshn07.5-101The [facility] Physician GroupComment on above:Performed By: #### RENAL, CBC #### [facility] [address] [place] [address] USAMean Corpuscular HGB Conc35.2 g/jFGpshcd28.5-35.6The [facility] Physician GroupComment on above:Performed By: #### RENAL, CBC #### [facility] [address] [place] [address] USAPlatelet mean volume (Bld) [Entitic vol]6.9 fLNormal 6.6-10.1The [facility] Physician GroupComment on above:Result Comment: PERFORMED BY: [place] [address] PATHOLOGIST ENGAGEMENT LIAISON KRISTEL LU M.D.Performed By: #### RENAL, CBC #### [place] [address] USAPlatelets (Bld) [#/Vol]381 10*3/zTXsstzp151-626Jfh [facility] Physician GroupComment on above:Performed By: #### RENAL, CBC #### [facility] [address] [place] [address] USARBC (Bld) [#/Vol]2.39 10*6/uLLow3.90-5.60The [facility] Physician [facility] CenterComment on above:Performed By: #### RENAL, CBC #### [place] [address] USAWBC (Bld) [#/Vol]9.3 10*3/uLNormal4.1-10.5The [facility] Physician GroupComment on above:Performed By: #### RENAL, CBC #### [place] [address] USAAnisocytosis LM Ql (Bld)Ordered By: Brenda Driscoll on 30-90-5773Jurpacfkhjsc Ql (Bld)Anisocytosis [Presence] in Blood by Light microscopyAvita Health System Ontario HospitalBand form neutrophils/100 WBC Manual cnt (Bld)Ordered By: Brenda Driscoll on 38-95-4140Wbdn form neutrophils/100 WBC (Bld)Peripheral white blood cell differential % bands, microscopic exam0-5 [facility] HospitalBasic Metabolic Panelon 32-14-4650Cwihc gap [Moles/Vol]10.2 mmol/LNormal6.0-15.0The [facility] Physician GroupComment on above:Performed By: #### BMP, DIFF CBC ####[address] [address] USACalcium [Mass/Vol]8.2 mg/dLLow8.6-10.3The [facility] Physician GroupComment on above:Performed By: #### BMP, DIFF CBC ####[address] [address] USA Chloride [Moles/Vol]102 mmol/MTvkvgd47-868Sew [facility] Physician GroupComment on above:Performed By: #### BMP, DIFF CBC ####[address] [address] USACO2 [Moles/Vol]30.1 mmol/SBpyrpa39.0-31.0The [facility] Physician GroupComment on above:Performed By: #### BMP, DIFF CBC ####[address] [address] [place] Creatinine [Mass/Vol]2.84 mg/dLHigh0.70-1.30The [facility] Physician GroupComment on above:Performed By: #### BMP, DIFF CBC ####[address] [address] USACreatinine Clr Calc Qoxzpzwk49.55 NormalThe [facility] Hospital Physician GroupComment on above:Result Comment: PERFORMED BY: [facility] [address] [place] [id number] PATHOLOGIST ENGAGEMENT LIAISON KRISTEL LU M.D.Performed By: #### BMP, DIFF CBC ####[address] [address] USAEstimated GFR21.474 mL/MinNormalThe [facility] Physician GroupComment on above:Performed By: #### BMP, DIFF CBC ####[address] [place] [address] USAGlucose [Mass/Vol]110 mg/cMFyef24-142Tpd [facility] Comment on above:Result Comment: Random Glucose Reference Range is dependent on time and content of last meal. Glucose of more than 200 mg/dL in a nonstressed, ambulatory subject supports the diagnosis of Diabetes Mellitus. ADA recommended reference rangePerformed By: #### BMP, DIFF CBC ####[place] [id number] USAPotassium [Moles/Vol] 4.3 mmol/LNormal3.5-5.1The [facility] Physician GroupComment on above:Performed By: #### BMP, DIFF CBC ####[place] [id number] USASodium [Moles/Vol]138 mmol/POblxwf924-858Hfl [facility] Physician GroupComment on above:Performed By: #### BMP, DIFF CBC ####[place] [id number] USAUrea nitrogen [Mass/Vol]76 mg/dLHigh7-25The [facility] Physician GroupComment on above:Performed By: #### BMP, DIFF CBC ####[address] [address] USADiff and CBCon 32-50-8877Jcuufeklzqnv Ql (Bld) SlightNormalThe [facility] Physician GroupComment on above:Performed By: #### BMP, DIFF CBC ####[place] [id number] USABand form neutrophils/100 WBC (Bld)3 %Normal0-5The [facility] Physician GroupComment on above:Performed By: #### BMP, DIFF CBC ####[place] [id number] USAEosinophils/100 WBC (Bld)1 % Normal1-3The [facility] Physician GroupComment on above:Performed By: #### BMP, DIFF CBC ####[address] [address] USAErythrocyte distribution width (RBC) [Ratio]14.8 %Itvxdz24.0-14.8The [facility] Physician GroupComment on above:Performed By: #### BMP, DIFF CBC ####[place] [id number] [place] Hematocrit (Bld) [Volume fraction]23.4 %Low38.8-50.0The [facility] Physician GroupComment on above:Performed By: #### BMP, DIFF CBC ####[place] [address] USAHemoglobin (Bld) [Mass/Vol]8.0 g/dLLow13.0-17.0The [facility] Physician GroupComment on above:Performed By: #### BMP, DIFF CBC ####[place] [id number] USALarge PlateletsSlightNormalThe [facility] Physician GroupComment on above:Result Comment: PERFORMED BY: [facility] [address] [place] [address] PATHOLOGIST ENGAGEMENT LIAISON KRISTEL LU M.D.Performed By: #### BMP, DIFF CBC ####[place] [id number] USALymphocytes/100 WBC (Bld)10 %Zcs42-09Qoj [facility] Physician GroupComment on above:Performed By: #### BMP, DIFF CBC ####[address] [address] USAMCH (RBC) [Entitic mass]32.5 vyWicvum12.5-35.2The [facility] Physician GroupComment on above:Performed By: #### BMP, DIFF CBC ####[address] [address] USAMCV (RBC) [Entitic vol]94.2 cBAigebl63.5-101The [facility] Physician GroupComment on above:Performed By: #### BMP, DIFF CBC ####[address] [address] USAMean Corpuscular HGB Conc34.5 g/oSBxcahk98.5-35.6The [facility] Physician GroupComment on above:Performed By: #### BMP, DIFF CBC ####[address] [address] USA Metamyelocytes1 %High0-0The [facility] Physician GroupComment on above:Performed By: #### BMP, DIFF CBC ####[address] [address] USAMicrocytosisShumboldt county memorial hospitalNoLifeCare Hospitals of North Carolina Physician GroupComment on above:Performed By: #### BMP, DIFF CBC ####[address] [address] USAMonocytes/100 WBC (Bld)4 % Normal2-11The [facility] Physician GroupComment on above:Performed By: #### BMP, DIFF CBC ####[address] [address] USAOvalocytesSSampson Regional Medical Center Physician GroupComment on above:Performed By: #### BMP, DIFF CBC ####[address] [address] USAPlatelet EstimateNormalNormalNoLifeCare Hospitals of North Carolina Physician [facility] Medical CenterComment on above:Performed By: #### BMP, DIFF CBC ####[address] [address] USAPlatelet mean volume (Bld) [Entitic vol]7.1 fLNormal6.6-10.1The [facility] Physician GroupComment on above:Performed By: #### BMP, DIFF CBC ####[address] [address] USAPlatelet MorphologyNormalNormalNormAdventHealth Brandon ER Physician GroupComment on above:Performed By: #### BMP, DIFF CBC ####[address] [address] [place] Platelets (Bld) [#/Vol]374 10*3/wGJxosxb120-803Neq [facility] Comment on above:Performed By: #### BMP, DIFF CBC ####[address] [address] USAPoikilocytosisShumboldt county memorial hospitalNoLifeCare Hospitals of North Carolina Physician GroupComment on above:Performed By: #### BMP, DIFF CBC ####[place] [address] [place] [address] USARBC (Bld) [#/Vol]2.48 10*6/uLLow3.90-5.60The [facility] Physician GroupComment on above:Performed By: #### BMP, DIFF CBC ####[place] [id number] USASegmented neutrophils/100 WBC (Bld)82 %High 50-70The [facility] Physician GroupComment on above:Performed By: #### BMP, DIFF CBC ####[address] [address] USAWBC (Bld) [#/Vol]9.8 10*3/uLNormal4.1-10.5The [facility] Physician GroupComment on above:Performed By: #### BMP, DIFF CBC ####[place] [id number] USAEosinophils/100 WBC Manual cnt (Bld)Ordered By: Brenda Driscoll on 34-08-8677Vtyhunsqlcp/100 WBC (Bld)Eosinophils/100 leukocytes in Blood by Manual count1-3FMain Campus Medical Center Erythrocyte morphology finding [Identifier] in BloodOrdered By: Brenda Driscoll on 58-19-2363POX morphology finding Nom (Bld)RBC morphologyAvita Health System Ontario HospitalLymphocytes/100 WBC Manual cnt (Bld)Ordered By: Brenda Driscoll on 87-63-9452Utgijesqojl/100 WBC (Bld)Lymphocytes/100 leukocytes in Blood by Manual uvdsdQkh34-73MycjzfighAvita Health System Ontario HospitalMetamyelocytes/100 WBC Manual cnt (Bld)Ordered By: Brenda Driscoll on 97-54-6017Nwgpsuqvxmiump/100 WBC (Bld)Metamyelocytes/100 leukocytes in Blood by Manual countHigh0-0[facility] HospitalMicrocytes LM Ql (Bld)Ordered By: Brenda Driscoll on 83-30-1948Fworhednqz Ql (Bld)Microcytes [Presence] in Blood by Light microscopy [facility] HospitalMonocytes/100 WBC Manual cnt (Bld)Ordered By: Brenda Driscoll on 92-80-4896Ozioelwsg/100 WBC (Bld)Monocytes/100 leukocytes in Blood by Manual count211Av[facility] Ontario HospitalOvalocytes [Presence] in Blood by Light microscopyOrdered By: Brenda Driscoll on 01-04-2025 Ovalocytes LM Ql (Bld)Ovalocyte detectionAvita Health System Ontario Hospital Platelet adequacy [Presence] in Blood by Light microscopyOrdered By: Brenda Driscoll on 11-08-9534Emlxmhhbz LM Ql (Bld)Platelet adequacy [Presence] in Blood by Light microscopyNoFairfield Medical CenterPlatelet morphology finding [Identifier] in BloodOrdered By: Brenda Driscoll on 90-44-2956Gmngjcby morphology finding Nom (Bld)Platelet morphology finding [Identifier] in BloodNoFairfield Medical CenterPlatelets Large [Presence] in Blood by Light microscopyOrdered By: Brenda Driscoll on 83-86-2286Fzfhkrpja Large LM Ql (Bld)Platelets Large [Presence] in Blood by Light microscopyAvita Health System Ontario HospitalPoikilocytosis [Presence] in Blood by Light microscopyOrdered By: Brenda Driscoll on 01-04-2025 Poikilocytosis LM Ql (Bld)Poikilocytosis [Presence] in Blood by Light microscopy [facility] Hospitalegmented neutrophils/100 WBC Manual cnt (Bld) Ordered By: Brenda Driscoll on 93-26-3845Kkushifmw neutrophils/100 WBC (Bld) Manual blood segmented neutrophils/100 uurtbpujvaHwhm55-93NbxnakwvwAvita Health System Ontario HospitalBasic Metabolic Panelon 61-19-4890Gztgu gap [Moles/Vol]11.5 mmol/L Normal6.0-15.0The [facility] Physician GroupComment on above:Performed By: #### BMP, CBCNO ####[facility] [address] [place] [address] USACalcium [Mass/Vol]8.0 mg/dLLow8.6-10.3The [facility] Physician GroupComment on above:Performed By: #### BMP, CBCNO ####[facility] [place], [place] [address]FAPBuvzynnj [Moles/Vol]98 mmol/BXqdcqq93-311Cap [facility] Physician GroupComment on above:Performed By: #### KOLBY, CBCNO ####[place] [address] [facility] Medical CenterthomasLEDYARD, [place] [address]YVWNB9 [Moles/Vol]29.8 mmol/AAofzet68.0-31.0The [facility] Physician GroupComment on above:Performed By: #### KOLBY, CBCNO ####[place] [place], [place] [address]CCKScminhomik [Mass/Vol]3.16 mg/dLSignificant change up 0.70-1.30The [facility] Physician GroupComment on above:Performed By: #### KOLBY CBCNO ####[place] [place], [place] [address]FGC Creatinine Clr Calc Rewpbdux31.34NormalThe [facility] Physician GroupComment on above:Result Comment: PERFORMED BY: [facility] [address] [place] [address] PATHOLOGIST ENGAGEMENT LIAISON KRISTEL LU M.D.Performed By: #### GINI JARRETTNO ####[place] [address] [place], [place] [address]TFJWlobbhskm GFR18.892 mL/Min NormalThe [facility] Physician GroupComment on above:Performed By: #### KOLBY, CBCNO ####[address] [address]DQE Glucose [Mass/Vol]118 mg/iDSjuf12-588Xtu [facility] Physician GroupComment on above:Result Comment: Random Glucose Reference Range is dependent on time and content of last meal. Glucose of more than 200 mg/dL in a nonstressed, ambulatory subject supports the diagnosis of Diabetes Mellitus. ADA recommended reference rangePerformed By: #### KOLBY, CBCNO ####[facility] [place], [place] [address]AYFDhqqgrulo [Moles/Vol] 4.3 mmol/LNormal3.5-5.1The [facility] Physician GroupComment on above:Performed By: #### KOLBY, CBCNO ####[place] [address] [place], [place] [address]YSCPcnivg [Moles/Vol]135 mmol/YJkz982-855Eny [facility] Comment on above:Performed By: #### KOLBY, CBCNO ####[address]ivaLEDY[place], [place] [address]WPTLrpv nitrogen [Mass/Vol]91 mg/dLHigh 7-25The [facility] Physician GroupComment on above:Performed By: #### KOLBY, CBCNO ####[address] [address]HVHLwofamet CBC Without Diffon 06-69-7793Fnmxzhdsuli distribution width (RBC) [Ratio]14.9 % High12.0-14.8The [facility] Physician GroupComment on above:Performed By: #### KOLBY, CBCNO ####[address] [address] USAHematocrit (Bld) [Volume fraction]22.0 %Low38.8-50.0The [facility] Physician GroupComment on above:Performed By: #### KOLBY CBCNO ####[address] [address]YXRUuqmbhdutk (Bld) [Mass/Vol]7.7 g/dLLow13.0-17.0The [facility] Physician GroupComment on above:Performed By: #### KOLBY, CBCNO ####[address] [address]JCDFAC (RBC) [Entitic mass]32.6 wxVetsym36.5-35.2The [facility] Physician GroupComment on above:Performed By: #### KOLBY, CBCNO ####[address] [address]JULLKP (RBC) [Entitic vol]93.0 fL Iglddo75.5-101The [facility] Physician GroupComment on above:Performed By: #### KOLBY, CBCNO ####[address] [address] USAMean Corpuscular HGB Conc35.0 g/iRXyoflt96.5-35.6The [facility] Physician GroupComment on above:Performed By: #### BMP, CBCNO ####[address] [address]HSWNectnghi mean volume (Bld) [Entitic vol]7.4 fLNormal6.6-10.1[facility] Physician [facility] CenterComment on above: Result Comment: PERFORMED BY: [facility] [address] [facility] [place] [address] PATHOLOGIST ENGAGEMENT LIAISON KRISTEL LU M.D.Performed By: #### BMP, CBCNO ####[address] [address]MMUQencjlzzz (Bld) [#/Vol]345 10*3/pOWpmckq414-239Byu [facility] Physician GroupComment on above:Performed By: #### BMP, CBCNO ####[address] [address]XVTEIX (Bld) [#/Vol]2.37 10*6/uLLow3.90-5.60[facility] Comment on above:Performed By: #### BMP, CBCNO ####[address] [address]JRMOHH (Bld) [#/Vol]10.0 10*3/uLNormal 4.1-10.5The [facility] Physician GroupComment on above:Performed By: #### BMP, CBCNO ####[address] [address]PYO Fecal occult blood detection by immunochemistryOrdered By: Winsome Goff on 30-10-0367Zflsfsyifs.gastrointestinal Ql (Stl)Fecal occult blood detection by immunochemistryAvita Health System Ontario HospitalHemogram CBC Without Diffon 00-39-9450Wmxgfrvvgpw distribution width (RBC) [Ratio]14.6 %Samowb77.0-14.8The [facility] Physician GroupComment on above:Performed By: #### CBCNO, RENAL ####[address] [address] [place] Hematocrit (Bld) [Volume fraction]22.2 %Low38.8-50.0The [facility] Physician GroupComment on above:Performed By: #### JACQUI, RENAL ####[place] [address] USAHemoglobin (Bld) [Mass/Vol]7.5 g/dLLow13.0-17.0The [facility] Physician GroupComment on above:Performed By: #### JACQUI, RENAL ####[address] StreetMCH (RBC) [Entitic mass]31.9 ezNvpmxf55.5-35.2The [facility] Physician GroupComment on above:Performed By: #### JACQUI, RENAL ####[address] StreetMCV (RBC) [Entitic vol]94.0 zGSuvozg65.5-101The [facility] Physician GroupComment on above:Performed By: #### JACQUI, RENAL ####[place] [address] USAMean Corpuscular HGB Conc33.9 g/jJHgokue80.5-35.6The [facility] Physician GroupComment on above:Performed By: #### JACQUI, RENAL ####[address] Platelet mean volume (Bld) [Entitic vol]7.5 fLNormal6.6-10.1The [facility] Physician GroupComment on above:Result Comment: PERFORMED BY: [facility] [address] [facility]USBel[place] [id number] PATHOLOGIST ENGAGEMENT LIAISON KRISTEL LU M.D.Performed By: #### JACQUI, RENAL ####[place] [address] USAPlatelets (Bld) [#/Vol]332 10*3/oAMehrxo405-757Jgi [facility] Physician GroupComment on above: Performed By: #### JACQUI, RENAL ####[place] [address] USARBC (Bld) [#/Vol]2.36 10*6/uLLow3.90-5.60The [facility] Physician GroupComment on above:Performed By: #### JACQUI, RENAL ####[place] [address] USAWBC (Bld) [#/Vol]11.7 10*3/uLHigh4.1-10.5The [facility] Physician GroupComment on above:Performed By: #### JACQUI, RENAL ####[address] [address] USARenal Function Panelon 59-42-4722Qzyvlth [Mass/Vol]2.8 g/dLLow3.5-5.7The [facility] Physician GroupComment on above: Performed By: #### JACQUI, RENAL ####[place] [address] USAAnion gap [Moles/Vol]11.2 mmol/LNormal6.0-15.0The [facility] Physician GroupComment on above:Performed By: #### JACQUI, RENAL ####[place] [id number] USACalcium [Mass/Vol]8.4 mg/dLLow8.6-10.3The [facility] Physician GroupComment on above: Performed By: #### JACQUI, RENAL ####[place] [address] USAChloride [Moles/Vol]96 mmol/JRyf66-140Xwd [facility] Physician GroupComment on above:Performed By: #### CBCBISHOP, RENAL ####[place] [address] USACO2 [Moles/Vol]30.4 mmol/DWzfdhw03.0-31.0The [facility] Physician GroupComment on above:Performed By: #### JACQUI, RENAL ####[place] [address] USACreatinine [Mass/Vol]3.67 mg/dLHigh0.70-1.30The [facility] Physician [facility] CenterComment on above:Performed By: #### JACQUI, RENAL ####[place] [address] [place] [id number] USACreatinine Clr Calc Pharmacy 18.42NormAdventHealth Brandon ER Physician [facility] Medical CenterComment on above:Result Comment: PERFORMED BY: [facility] [address] [place] [id number] PATHOLOGIST ENGAGEMENT LIAISON KRISTEL LU M.D.Performed By: #### JACQUI, RENAL ####[place] [address] [place] [address] USAEstimated GFR15.787 mL/MinNoMetroHealth Parma Medical CenterComment on above:Performed By: #### JACQUI, RENAL ####[place] [address] [place] [address] USAGlucose [Mass/Vol]107 mg/yYImlx58-572Qbq [facility] Comment on above:Result Comment: Random Glucose Reference Range is dependent on time and content of last meal. Glucose of more than 200 mg/dL in a nonstressed, ambulatory subject supports the diagnosis of Diabetes Mellitus. ADA recommended reference rangePerformed By: #### JACQUI, RENAL ####[place] [address] USAPhosphate [Mass/Vol] 4.2 mg/dLNormal2.5-4.5The [facility] Physician [facility] CenterComment on above:Performed By: #### JACQUI, RENAL ####[place] [address] USAPotassium [Moles/Vol]4.6 mmol/LNormal3.5-5.1The [facility] Physician [facility] Medical CenterComment on above:Performed By: #### JACQUI, RENAL ####[place] [id number] USASodium [Moles/Vol]133 mmol/OXrb601-754Ozi [facility] Physician [facility] CenterComment on above: Performed By: #### JACQUI, RENAL ####[place] [address] USAUrea nitrogen [Mass/Vol]90 mg/dLHigh7-25The [facility] Physician GroupComment on above:Performed By: #### CBCNO, RENAL ####[place] [address] USAStool Occult Blood (Immuno)on 51-74-6906Akucz Occult Blood (Immuno)Occult Blood (Immuno) Positive for Occult Blood by Immunochemical Methodology Reference range = Negative PERFORMED BY: [facility] [address] [place] [address] PATHOLOGIST ENGAGEMENT LIAISON KRISTEL LU M.D.NormalThe [facility] Physician GroupComment on above: Performed By: #### OB(IMMUNO) ####[place] [phone] and Hematocriton 93-08-9054Lhugxoinsx (Bld) [Volume fraction]23.8 %Low38.8-50.0The [facility] Physician GroupComment on above:Result Comment: PERFORMED BY: [facility] [address] [place] [address] PATHOLOGIST ENGAGEMENT LIAISON KRISTEL LU M.D.Performed By: #### HH ####[place] [phone] USAHemoglobin (Bld) [Mass/Vol]8.3 g/dLLow 13.0-17.0The [facility] Physician GroupComment on above:Performed By: #### HH ####[address] [address] USADiff and CBCon 85-77-2637Fyugfqxoiczs Ql (Bld)SlightNormalThe [facility] Physician GroupComment on above:Performed By: #### DIFF CBC ####[place] [id number] USAEosinophils/100 WBC (Bld)3 %Normal1-3 The [facility] Physician GroupComment on above:Performed By: #### DIFF CBC ####[address] Erythrocyte distribution width (RBC) [Ratio]15.0 %High12.0-14.8The [facility] Physician GroupComment on above:Performed By: #### DIFF CBC ####[place] [address] USAHematocrit (Bld) [Volume fraction]22.5 %Low38.8-50.0The [facility] Physician GroupComment on above:Performed By: #### DIFF CBC ####[place] [address] USAHemoglobin (Bld) [Mass/Vol]7.6 g/dLLow13.0-17.0The [facility] Physician GroupComment on above:Performed By: #### DIFF CBC ####[place] [address] [place] Lymphocytes/100 WBC (Bld)7 %Qpn73-74Yfs [facility] Physician GroupComment on above:Performed By: #### DIFF CBC ####[address] StreetMCH (RBC) [Entitic mass]31.6 ecTkdpml35.5-35.2The [facility] Physician GroupComment on above:Performed By: #### DIFF CBC ####[address] StreetMCV (RBC) [Entitic vol]92.9 pTAbnvej61.5-101The [facility] Physician GroupComment on above:Performed By: #### DIFF CBC ####[place] [address] USAMean Corpuscular HGB Conc34.0 g/jXTznjam08.5-35.6The [facility] Physician GroupComment on above:Performed By: #### DIFF CBC ####[place] [address] [place] Metamyelocytes2 %High0-0The [facility] Physician GroupComment on above:Performed By: #### DIFF CBC ####[address] [address] USAMonocytes/100 WBC (Bld)2 %Normal2-11The [facility] Comment on above:Performed By: #### DIFF CBC ####[address] [address] USAMyelocytes1 %High0-0The [facility] Physician [facility] Medical CenterComment on above:Performed By: #### DIFF CBC ####[address] [address] USAPlatelet Estimate NormalNormalNormAdventHealth Brandon ER Physician GroupComment on above:Result Comment: PERFORMED BY: [place] [address] PATHOLOGIST ENGAGEMENT LIAISON KRISTEL LU M.D.Performed By: #### DIFF CBC ####[address] [address] USAPlatelet mean volume (Bld) [Entitic vol]7.4 fLNormal6.6-10.1[facility] Physician [facility] CenterComment on above: Performed By: #### DIFF CBC ####[address] [address] USAPlatelet MorphologyNormalNormalHCA Florida Suwan[facility] Emergency Physician [facility] Medical CenterComment on above:Result Comment: PERFORMED BY: [place] [address] PATHOLOGIST ENGAGEMENT LIAISON KRISTEL LU M.D.Performed By: #### DIFF CBC ####[address] [address] USAPlatelets (Bld) [#/Vol]299 10*3/hRJijnlb521-471Pju [facility] Physician GroupComment on above:Performed By: #### DIFF CBC ####[address] [address] USARBC (Bld) [#/Vol]2.42 10*6/uLLow3.90-5.60The [facility] Comment on above:Performed By: #### DIFF CBC ####[address] [address] USASegmented neutrophils/100 WBC (Bld)86 %Hsrt15-23Dfx [facility] Physician GroupComment on above:Performed By: #### DIFF CBC ####[address] [address] USAWBC (Bld) [#/Vol]8.8 10*3/uLNormal4.1-10.5The [facility] Physician GroupComment on above:Performed By: #### DIFF CBC ####[place] [id number] USALeukoReduced RBCon 91-59-2164UqnrmGaoabyr RBCNOT AVAILABLENormalThe [facility] Physician [facility] CenterMyelocytes/100 WBC Manual cnt (Bld) Ordered By: Sotero Black on 36-23-7603Cgvredtftn/100 WBC (Bld)Myelocytes/100 leukocytes in Blood by Manual countHigh0-0[facility] Ontario HospitalRenal Function Panelon 73-06-2762Yhdzcyb [Mass/Vol]3.0 g/dLLow3.5-5.7The [facility] Physician GroupComment on above:Performed By: #### RENAL ####[place] [address] USAAnion gap [Moles/Vol]11.4 mmol/LNormal6.0-15.0The [facility] Physician GroupComment on above:Performed By: #### RENAL ####[place] [phone] USACalcium [Mass/Vol]8.7 mg/dLNormal8.6-10.3The [facility] Comment on above:Performed By: #### RENAL ####[place] [address] USAChloride [Moles/Vol]95 mmol/GBsq63-091Axy [facility] Physician GroupComment on above:Performed By: #### RENAL ####[place] [address] USACO2 [Moles/Vol]32.6 mmol/LHigh21.0-31.0The [facility] Physician [facility] CenterComment on above:Performed By: #### RENAL ####[place] [address] USACreatinine [Mass/Vol]3.24 mg/dLHigh0.70-1.30[facility] Phys[facility] Comment on above:Performed By: #### RENAL ####[place] [address] USACreatinine Clr Calc Ogxtskda02.85NormalThe [facility] Physician [facility] Medical CenterComment on above:Result Comment: PERFORMED BY: [facility] [address] [place] [id number] PATHOLOGIST ENGAGEMENT LIAISON KRISTEL LU M.D.Performed By: #### RENAL ####[place] [phone] USAEstimated GFR18.334 mL/Min NormalThe [facility] Physician [facility] Medical CenterComment on above:Performed By: #### RENAL ####[place] [phone] USAGlucose [Mass/Vol]120 mg/wUQttk22-125Yyw [facility] Physician [facility] CenterComment on above: Result Comment: Random Glucose Reference Range is dependent on time and content of last meal. Glucose of more than 200 mg/dL in a nonstressed, ambulatory subject supports the diagnosis of Diabetes Mellitus. ADA recommended reference rangePerformed By: #### RENAL ####[place] [id number] USAPhosphate [Mass/Vol]4.3 mg/dL Normal2.5-4.5The [facility] Physician [facility] CenterComment on above:Performed By: #### RENAL ####[place] [address] [place] Potassium [Moles/Vol]4.0 mmol/LNormal3.5-5.1The [facility] Physician [facility] CenterComment on above:Performed By: #### RENAL ####[place] [phone] USASodium [Moles/Vol]135 mmol/YXtm879-085Djk [facility] Physician GroupComment on above:Performed By: #### RENAL ####[address] [address] USAUrea nitrogen [Mass/Vol]94 mg/dLHigh7-25The [facility] Physician GroupComment on above:Performed By: #### RENAL ####[address] [address] [place] Type and Screenon 79-76-9967VPQ and Rh group Nom (Bld)Blood group O Rh(D) positiveNormalThe [facility] Physician GroupComment on above:Order Comment: Transfuse now? Y Number of units to transfuse now? 2 Transfuse now? Y Number of units to transfuse now? 1 Transfuse now? Y Number of units to transfuse now? 1 Transfuse now? Y Number of units to transfuse now? 1Basic Metabolic Panelon 00-37-7567Glgld gap [Moles/Vol]11.8 mmol/LNormal6.0-15.0The [facility] Physician GroupComment on above:Performed By: #### BMP, URIC ####[address] [address] USACalcium [Mass/Vol]9.1 mg/dLNormal8.6-10.3The [facility] Physician GroupComment on above:Performed By: #### BMP, URIC ####[address] [address] [place] Chloride [Moles/Vol]93 mmol/UGah10-652Pts [facility] Physician GroupComment on above:Performed By: #### BMP, URIC ####[address] [address] USACO2 [Moles/Vol]35.5 mmol/LHigh21.0-31.0The [facility] Physician GroupComment on above:Performed By: #### BMP, URIC ####[address] [address] USACreatinine [Mass/Vol] 3.21 mg/dLHigh0.70-1.30The [facility] Physician GroupComment on above:Performed By: #### BMP, URIC ####[place] [address] [place] [address] USACreatinine Clr Calc Ukakvrvn53.04NoLifeCare Hospitals of [facility] Physician Group Comment on above:Performed By: #### BMP, URIC ####[address] [address] USAEstimated GFR18.539 mL/MinNoLifeCare Hospitals of North Carolina Physician GroupComment on above:Performed By: #### BMP, URIC ####[place] [id number] USAGlucose [Mass/Vol]123 mg/mXNoyv52-187Qeb [facility] Physician GroupComment on above: Result Comment: Random Glucose Reference Range is dependent on time and content of last meal. Glucose of more than 200 mg/dL in a nonstressed, ambulatory subject supports the diagnosis of Diabetes Mellitus. ADA recommended reference rangePerformed By: #### BMP, URIC ####[place] [id number] USAPotassium [Moles/Vol] 4.3 mmol/LNormal3.5-5.1The [facility] Physician GroupComment on above:Performed By: #### BMP, URIC ####[place] [address] USASodium [Moles/Vol]136 mmol/ECdwlfr037-200Lsy [facility] Physician GroupComment on above:Performed By: #### BMP, URIC ####[address] [address] USAUrea nitrogen [Mass/Vol]94 mg/dLHigh7-25The [facility] Physician GroupComment on above:Performed By: #### BMP, URIC ####[address] [address] USABasophils/100 WBC Manual cnt (Bld)Ordered By: Zoie Field on 05-29-9567Bhnxslxip/100 WBC (Bld)Basophils/100 leukocytes in Blood by Manual count0-2FMain Campus Medical CenterDiff and CBCon 39-93-9313Nwogcapnexsc Ql (Bld)SlightHCA Florida Suwannee Emergency Physician GroupComment on above:Performed By: #### DIFF CBC ####[address] [address] USABasophils/100 WBC (Bld)1 %Normal0-2The [facility] Physician GroupComment on above:Performed By: #### DIFF CBC ####[address] [address] USAErythrocyte distribution width (RBC) [Ratio] 15.5 %High12.0-14.8The [facility] Physician GroupComment on above:Performed By: #### DIFF CBC ####[address] [address] USAHematocrit (Bld) [Volume fraction]22.5 %Low38.8-50.0The [facility] Physician GroupComment on above:Performed By: #### DIFF CBC ####[address] [address] USAHemoglobin (Bld) [Mass/Vol]7.7 g/dLLow13.0-17.0The [facility] Physician GroupComment on above: Performed By: #### DIFF CBC ####[address] [address] USAHypochromasiaSlightNormalThSaint Alphonsus Ne[facility] Physician GroupComment on above:Performed By: #### DIFF CBC ####[address] [address] USALymphocytes/100 WBC (Bld)9 %Cxp42-85 The [facility] Physician GroupComment on above:Performed By: #### DIFF CBC ####[address] [address] USAMCH (RBC) [Entitic mass]32.4 kdObkfxq44.5-35.2The [facility] Physician GroupComment on above:Performed By: #### DIFF CBC ####[address] [address] USAMCV (RBC) [Entitic vol]94.0 gEQiryql64.5-101 The [facility] Physician GroupComment on above:Performed By: #### DIFF CBC ####[address] [address] USAMean Corpuscular HGB Conc34.4 g/gKHajokg19.5-35.6The [facility] Physician GroupComment on above:Performed By: #### DIFF CBC ####[address] [address] USAMetamyelocytes1 %High0-0The [facility] Physician GroupComment on above:Performed By: #### DIFF CBC ####[address] [address] USAMonocytes/100 WBC (Bld)6 %Normal2-11The [facility] Physician GroupComment on above:Performed By: #### DIFF CBC ####[address] [address] USAMyelocytes4 %High0-0The [facility] Physician GroupComment on above: Performed By: #### DIFF CBC ####[address] [address] USAPlatelet EstimateNormalNormalNormAdventHealth Brandon ER Physician GroupComment on above:Performed By: #### DIFF CBC ####[address] [address] USAPlatelet mean volume (Bld) [Entitic vol]7.6 fLNormal6.6-10.1The [facility] Physician GroupComment on above:Performed By: #### DIFF CBC ####[address] [address] USAPlatelet MorphologyNormalNormalNormAdventHealth Brandon ER Physician GroupComment on above:Result Comment: PERFORMED BY: [facility] [address] [place] [address] PATHOLOGIST ENGAGEMENT LIAISON KRISTEL LU M.D.Performed By: #### DIFF CBC ####[address] [address] USAPlatelets (Bld) [#/Vol]241 10*3/wIDmybwd358-457Uqm [facility] Physician GroupComment on above:Performed By: #### DIFF CBC ####[facility] [place] [address] USAPolychromasiaSlightNormalThe [facility] Physician GroupComment on above: Performed By: #### DIFF CBC ####[address] [address] USARBC (Bld) [#/Vol]2.39 10*6/uLLow3.90-5.60The [facility] Physician [facility] CenterComment on above:Performed By: #### DIFF CBC ####[address] [address] [place] Segmented neutrophils/100 WBC (Bld)80 %Hodk06-56Azm [facility] Comment on above:Performed By: #### DIFF CBC ####[address] [address] USAWBC (Bld) [#/Vol]8.8 10*3/uLNormal 4.1-10.5The [facility] Physician [facility] CenterComment on above:Performed By: #### DIFF CBC ####[address] [address] [place] Hypochromia LM Ql (Bld)Ordered By: Zoie Field on 90-23-8875Rhddfqhvihz Ql (Bld)Hypochromia [Presence] in Blood by Light microscopyAvita Health System Ontario HospitalPolychromasia [Presence] in Blood by Light microscopyOrdered By: Zoie Field on 59-18-1988Wjeevayleegwm LM Ql (Bld)Polychromasia [Presence] in Blood by Light microscopyAvita Health System Ontario HospitalUS venous duplex LE BIon 33-08-8601KI venous duplex LE [facility] [address] [place] [address] [place] [address] Ultrasound Report Signed Patient: Delano Oliver MR#: [id number] [birth year] : 1940 Acct:[id number] Age/Sex: 84 / M ADM Date: 12/27/24 Loc: Room: [address] [place] [address] Type: ADM IN Attending Dr: Sotero Black [...] Dominik Lugo M.D.12/30/2024 12:28 PM Dictation Location: [place] [address] Tech: Cayla Rodriguez Transcribed By: CALI 12/30/24 1228 Dictated By: Dominik Lugo MD 12/30/24 1226 Signed By: 12/30/24 1228[facility] Emergency Physician GroupUrate [Mass/volume] in Serum or PlasmaOrdered By: Zoie Field on 83-26-3872Oprxl [Mass/Vol]Urate [Mass/volume] in Serum or PlasmaHigh4.4-7.6FMain Campus Medical CenterUric Acidon 40-66-6909Qkrba [Mass/Vol]10.6 mg/dLHigh4.4-7.6The [facility] Physician GroupComment on above:Result Comment: PERFORMED BY: [place] [id number] PATHOLOGIST ENGAGEMENT LIAISON KRISTEL LU M.D.Performed By: #### BMP, URIC ####[facility] [address] [place] [id number] USAX-ray reportOrdered By: Sotero Scott on 98-88-1402Nwwub reportAvita Health System Ontario HospitalXR hip RT min 2V(w/wo pelvis)*on 83-48-7948HA hip RT min 2V(w/wo pelvis)*[facility] [place] [address] XRay Report Signed Patient: Delano Oliver MR#: [id number] [birth year] : 1940 Acct:[id number] Age/Sex: 84 / M ADM Date: 12/27/24 Loc: Room: 2U3343-6 Type: ADM IN Attending Dr: Sotero Black [...] COMPLICATION.. Impression dictated by: Sotero Scott Jr., DKeoOKeo12/30/2024 1:24 PM Dictation Location: [place] [address] Transcribed By: [facility] 12/30/24 1324 Dictated By: Sotero Scott Jr, DO 12/30/24 1323 Signed By: 12/30/24 1324H[facility] Physician GroupAlanine aminotransferase [Enzymatic activity/volume] in Serum or PlasmaOrdered By: Sotero Black on 61-77-0120CGJ [Catalytic activity/Vol]Alanine aminotransferase [Enzymatic activity/volume] in Serum or Plasma7-52[facility] HospitalAlkaline phosphatase [Enzymatic activity/volume] in Serum or PlasmaOrdered By: Sotero Black on 47-23-7712QRY [Catalytic activity/Vol]Alkaline phosphatase [Enzymatic activity/volume] in Serum or Inrcia45-552MmeubqvfwAvita Health System Ontario Hospital Aspartate aminotransferase [Enzymatic activity/volume] in Serum or PlasmaOrdered By: Sotero Black on 15-94-2257LSE [Catalytic activity/Vol]Aspartate aminotransferase [Enzymatic activity/volume] in Serum or Tphqfy74-92PgcrrkgizAvita Health System Ontario HospitalBilirubin.total [Mass/volume] in Serum or PlasmaOrdered By: Sotero Black on 51-43-8435Syddspjbv [Mass/Vol]Bilirubin.total [Mass/volume] in Serum or Plasma0.3-1.0[facility] HospitalComprehensive Metabolic Panelon 46-98-8635Bwhejnj [Mass/Vol]3.1 g/dLLow3.5-5.7The [facility] Physician GroupComment on above:Performed By: #### PAB, CMP, DIFF CBC ####[place] [address] [place] [address] [place] Albumin/Globulin [Mass ratio]1.1 {ratio}NormalThe [facility] Physician Group Comment on above:Performed By: #### PAB, CMP, DIFF CBC ####[place] [address] [place] [address] USAALP [Catalytic activity/Vol]63 U/VPezlxb41-298Xlq [facility] GroupComment on above:Performed By: #### PAB, CMP, DIFF CBC ####[place] [address] [place] [address] USAALT [Catalytic activity/Vol]10 U/LNormal7-52The [facility] Physician GroupComment on above:Performed By: #### PAB, CMP, DIFF CBC ####[place] [address] [place] [address] USAAnion gap [Moles/Vol] 10.2 mmol/LNormal6.0-15.0The [facility] Physician GroupComment on above:Performed By: #### PAB, CMP, DIFF CBC ####[address] [address] USAAST [Catalytic activity/Vol]33 U/GChaada20-26Vcs [facility] Physician GroupComment on above:Performed By: #### PAB, CMP, DIFF CBC ####[place] [address] [place] [address] [place] Bilirubin [Mass/Vol]0.7 mg/dLNormal0.3-1.0The [facility]cm[facility] Hospital GroupComment on above:Performed By: #### PAB, CMP, DIFF CBC ####[address] [address] USACalcium [Mass/Vol]9.8 mg/dLNormal 8.6-10.3The [facility] Physician GroupComment on above:Performed By: #### PAB, CMP, DIFF CBC ####[place] [address] USAChloride [Moles/Vol]94 mmol/KYdh95-476Rch [facility] Physician [facility] Comment on above:Performed By: #### PAB, CMP, DIFF CBC ####[place] [address] USACO2 [Moles/Vol]36.7 mmol/LHigh 21.0-31.0The [facility] Physician GroupComment on above:Performed By: #### PAB, CMP, DIFF CBC ####[place] [address] USACreatinine [Mass/Vol]2.96 mg/dLHigh0.70-1.30The [facility] Physician GroupComment on above:Performed By: #### PAB, CMP, DIFF CBC ####[place] [address] USACreatinine Clr Calc Bnbylzui60.60NormAdventHealth Brandon ER Physician GroupComment on above:Performed By: #### PAB, CMP, DIFF CBC ####[place] [address] USAEstimated GFR20.434 mL/MinNoLifeCare Hospitals of North [facility] Physician [facility] Medical CenterComment on above:Performed By: #### PAB, CMP, DIFF CBC ####[place] [address] [place] Globulin (S) [Mass/Vol]2.8 g/dLNoLifeCare Hospitals of North Carolina Physician GroupComment on above:Performed By: #### PAB, CMP, DIFF CBC ####[place] [address] USAGlucose [Mass/Vol]135 mg/vLAvsr42-449 The [facility] Physician GroupComment on above:Result Comment: Random Glucose Reference Range is dependent on time and content of last meal. Glucose of more than 200 mg/dL in a nonstressed, ambulatory subject supports the diagnosis of Diabetes Mellitus. ADA recommended reference rangePerformed By: #### PAB, CMP, DIFF CBC ####[place] [id number] [facility] Potassium [Moles/Vol]3.9 mmol/LNormal3.5-5.1The [facility] Physician GroupComment on above:Performed By: #### PAB, CMP, DIFF CBC ####[place] [id number] USAProtein [Mass/Vol]5.9 g/dLLow6.4-8.9 The [facility] Physician GroupComment on above:Performed By: #### PAB, CMP, DIFF CBC ####[address] Sodium [Moles/Vol]137 mmol/XFodkxl145-115Gsc [facility] Physician GroupComment on above:Performed By: #### PAB, CMP, DIFF CBC ####[address] StreetUrea nitrogen [Mass/Vol]87 mg/dLHigh 7-e [facility] Physician GroupComment on above:Performed By: #### PAB, CMP, DIFF CBC ####[place] [address] USADiff and CBCon 32-32-6774Mnkuzayzhklv Ql (Bld)SlightNormalThe [facility] Physician GroupComment on above:Performed By: #### PAB, CMP, DIFF CBC ####[address] Erythrocyte distribution width (RBC) [Ratio]15.4 %High12.0-14.8The [facility] Physician GroupComment on above:Performed By: #### PAB, CMP, DIFF CBC ####[address] Hematocrit (Bld) [Volume fraction]24.0 %Low38.8-50.0The [facility] Physician GroupComment on above:Performed By: #### PAB, CMP, DIFF CBC ####[place] [address] USAHemoglobin (Bld) [Mass/Vol]8.3 g/dLLow13.0-17.0The [facility] Physician GroupComment on above: Performed By: #### PAB, CMP, DIFF CBC ####[address] [address] USAHypochromasiaSlightNoLifeCare Hospitals of North Carolina Physician GroupComment on above:Performed By: #### PAB, CMP, DIFF CBC ####[address] [address] [place] Lymphocytes/100 WBC (Bld)9 %Elj08-43Yyd [facility] Physician GroupComment on above:Performed By: #### PAB, CMP, DIFF CBC ####[address] [address] [facility] (RBC) [Entitic mass]32.3 pgNormal 27.5-35.2The [facility] Physician GroupComment on above:Performed By: #### PAB, CMP, DIFF CBC ####[address] [address] [facility] (RBC) [Entitic vol]93.8 gBMbsrym55.5-101The [facility] Physician GroupComment on above:Performed By: #### PAB, CMP, DIFF CBC ####[address] [address] USAMean Corpuscular HGB Conc34.5 g/vUZxoubq02.5-35.6The [facility] Physician GroupComment on above: Performed By: #### PAB, CMP, DIFF CBC ####[address] [address] USAMetamyelocytes1 %High0-0The [facility] Physician GroupComment on above:Performed By: #### PAB, CMP, DIFF CBC ####[address] [address] [place] Monocytes/100 WBC (Bld)7 %Normal2-11The [facility] Physician GroupComment on above:Performed By: #### PAB, CMP, DIFF CBC ####[address] [address] USAPlatelet EstimateNormalNormalNormAdventHealth Brandon ER Physician GroupComment on above:Performed By: #### PAB, CMP, DIFF CBC ####[address] [address] [place] Platelet mean volume (Bld) [Entitic vol]7.7 fLNormal6.6-10.1The [facility] Physician GroupComment on above:Performed By: #### PAB, CMP, DIFF CBC ####[address] [address] [place] Platelet MorphologyNormalNormalNoLifeCare Hospitals of North Carolina Physician GroupComment on above:Result Comment: PERFORMED BY: [facility] [address] [place] [id number] PATHOLOGIST ENGAGEMENT LIAISON KRISTEL LU M.D.Performed By: #### PAB, CMP, DIFF CBC ####[address] [address] USAPlatelets (Bld) [#/Vol]178 10*3/qFQwwydm135-645Yvw [facility] Physician GroupComment on above: Performed By: #### PAB, CMP, DIFF CBC ####[address] [address] USAPolychromasiaSlightNoLifeCare Hospitals of North Carolina Physician GroupComment on above:Performed By: #### PAB, CMP, DIFF CBC ####[address] [address] USARBC (Bld) [#/Vol]2.56 10*6/uLLow3.90-5.60The [facility] Physician GroupComment on above:Performed By: #### PAB, CMP, DIFF CBC ####[address] [address] USASegmented neutrophils/100 WBC (Bld)83 %Okci40-83Qxz [facility] Physician GroupComment on above:Performed By: #### PAB, CMP, DIFF CBC ####[address] [address] USAWBC (Bld) [#/Vol]7.7 10*3/uLNormal4.1-10.5The [facility] Comment on above:Performed By: #### PAB, CMP, DIFF CBC ####[facility] [address] [place] [address] USAGlobulin Calc (S) [Mass/Vol] Ordered By: Sotero Black on 88-57-4771Oymeufug (S) [Mass/Vol]Serum globulin measurement by calculation (mass/volume)[facility] Prealbuminon 65-73-2620Lvmajgkroo [Mass/Vol]13.6 mg/dLLow17.0-34.0The [facility] Physician GroupComment on above:Result Comment: PERFORMED BY: [facility] [address] [place] [id number] PATHOLOGIST ENGAGEMENT LIAISON KRISTEL LU M.D.Performed By: #### RENAL, CBC #### [facility] [address] [place] [id number] USAPrealbumin [Mass/volume] in Serum or PlasmaOrdered By: Sotero Black on 18-52-5462Htlgbyogmz [Mass/Vol]Prealbumin [Mass/volume] in Serum or ZimqfmZmx65.0-34.0[facility] HospitalProtein [Mass/volume] in Serum or PlasmaOrdered By: Sotero Black on 04-88-0077Ooxulpm [Mass/Vol]Protein [Mass/volume] in Serum or PlasmaLow6.4-8.9[facility] Hospitalerum or plasma albumin/globulin mass ratioOrdered By: Sotero Black on 12-28-2024 Albumin/Globulin [Mass ratio]Serum or plasma albumin/globulin mass ratio [facility] HospitalBasic Metabolic Panelon 00-38-6886Cmaaz gap [Moles/Vol]14.0 mmol/LNormal6.0-15.0The [facility] Physician GroupComment on above:Performed By: #### CBCNO, MG, BMP ####[facility] [address] [place] [id number] USACalcium [Mass/Vol]10.0 mg/dLSignificant change down8.6-10.3The [facility] Physician GroupComment on above:Performed By: #### CBCNO, MG, BMP ####[facility] [address] [place] [id number] USAChloride [Moles/Vol]91 mmol/HWue45-345Oid [facility] Physician [facility] Comment on above:Performed By: #### JACQUI MG, BMP ####[place] [address] [place] [address] USACO2 [Moles/Vol]34.8 mmol/LHigh 21.0-31.0The [facility] Physician GroupComment on above:Performed By: #### GININO, MG, BMP ####[place] [address] USACreatinine [Mass/Vol]3.30 mg/dLSignificant change up0.70-1.30The [facility] Physician [facility] CenterComment on above:Performed By: #### JACQUI MG, BMP ####[place] [address] USACreatinine Clr Calc Zkoqskcf80.71NoLifeCare Hospitals of North Carolina Physician [facility] CenterComment on above:Performed By: #### JACQUI, MG, BMP ####[place] [address] USAEstimated GFR17.934 mL/MinMercy Hospital of [facility] Comment on above:Performed By: #### JACQUI, MG, BMP ####[place] [address] USAGlucose [Mass/Vol]130 mg/dL Eqdf21-786Uuq [facility] Physician [facility] CenterComment on above:Result Comment: Random Glucose Reference Range is dependent on time and content of last meal. Glucose of more than 200 mg/dL in a nonstressed, ambulatory subject supports the diagnosis of Diabetes Mellitus. ADA recommended reference rangePerformed By: #### CBCNO, MG, BMP ####[place] [address] USAPotassium [Moles/Vol] 3.8 mmol/LNormal3.5-5.1The [facility] Physician [facility] CenterComment on above:Performed By: #### CBCNO, MG, BMP ####[place] [address] USASodium [Moles/Vol]136 mmol/MMlymaf433-327Iet [facility] Physician GroupComment on above:Performed By: #### CBCNO, MG, BMP ####[facility] [address] [place] [address] USAUrea nitrogen [Mass/Vol]89 mg/dLHigh7-25The [facility] Physician GroupComment on above:Performed By: #### CBCNO, MG, BMP ####[facility] [address] [place] [address] USACalcium [Mass/volume] in Serum or Plasma Ordered By: Emile Reynolds on 48-72-2701Usxvhvi [Mass/Vol]Calcium [Mass/volume] in Serum or PlasmaSignificant change up8.6-10.3FMain Campus Medical Center Comment on above:Delta: 8.1 on 12/26/24Carbon dioxide, total [Moles/volume] in Serum or PlasmaOrdered By: Emile Reynolds on 74-77-6413BP2 [Moles/Vol]Carbon dioxide, total [Moles/volume] in Serum or UhxoyzYkfw08.0-31.0[facility] HospitalChloride [Moles/volume] in Serum or PlasmaOrdered By: Emile Reynolds on 46-01-8747Qhvwckqi [Moles/Vol]Chloride [Moles/volume] in Serum or PlasmaLow 98-107[facility] HospitalCreatinine [Mass/volume] in Serum or PlasmaOrdered By: Emile Reynolds on 26-23-7177Qjlczjklmc [Mass/Vol]Creatinine [Mass/volume] in Serum or PlasmaSignificant change up0.70-1.30[facility] HospitalComment on above:Delta: 3.82 on 12/26/24Erythrocyte distribution width Auto (RBC) [Ratio]Ordered By: Emile Reynolds on 12-27-2024 Erythrocyte distribution width (RBC) [Ratio]Erythrocyte distribution width [Ratio] by Automated wksieFjks90.0-14.8[facility] HospitalGlucose [Mass/volume] in Serum or PlasmaOrdered By: Emile Reynolds on 18-78-3122Rxdzuko [Mass/Vol]Glucose [Mass/volume] in Serum or TsixliIrxc13-176RydscrzarAvita Health System Ontario HospitalComment on above:ADA recommended reference rangeRandom Glucose Reference Range is dependent on time and content of last meal. Glucose of more than 200 mg/dL in a nonstressed, ambulatory subject supports the diagnosisof Diabetes Mellitus.Hematocrit Auto (Bld) [Volume fraction]Ordered By: Emile Reynolds on 70-28-7964Cifqeuwmyr (Bld) [Volume fraction]Hematocrit [Volume Fraction] of Blood by Automated qtcvoIto56.8-50.0[facility] HospitalHemoglobin [Mass/volume] in BloodOrdered By: Emile Reynolds on 12-27-2024 Hemoglobin (Bld) [Mass/Vol]Hemoglobin [Mass/volume] in OapwlHfe95.0-17.0 [facility] HospitalHemogram CBC Without Diffon 12-27-2024 Erythrocyte distribution width (RBC) [Ratio]15.8 %High12.0-14.8The [facility] Physician [facility] CenterComment on above:Performed By: #### JACQUI MG, BMP ####[place] [address] USAHematocrit (Bld) [Volume fraction]24.7 %Low38.8-50.0The Forbes HospitalComment on above:Performed By: #### MG JACQUI, BMP ####[place] [address] USAHemoglobin (Bld) [Mass/Vol]8.6 g/dLLow 13.0-17.0The Forbes HospitalComment on above:Performed By: #### JACQUI MG, BMP ####[place] [id number] [facility] (RBC) [Entitic mass]32.0 acXaauyn69.5-35.2The [facility] Physician [facility] Comment on above:Performed By: #### JACQUI MG, BMP ####[address] (RBC) [Entitic vol]92.0 fL Xuharc49.5-101The Forbes HospitalComment on above:Performed By: #### JACQUI MG, BMP ####[address] [place] [address] USAMean Corpuscular HGB Conc34.8 g/zAEseyea62.5-35.6The [facility] Physician GroupComment on above:Performed By: #### GININO, MG, BMP ####[address] [address] USAPlatelet mean volume (Bld) [Entitic vol]7.6 fLNormal6.6-10.1The [facility] Physician GroupComment on above:Result Comment: PERFORMED BY: [facility] [address] [place] [phone] PATHOLOGIST ENGAGEMENT LIAISON KRISTEL LU M.D.Performed By: #### JACQUI, MG, BMP ####[address] [address] USAPlatelets (Bld) [#/Vol]171 10*3/hMHehqfn490-136Tov [facility] Physician GroupComment on above: Performed By: #### CBCNO, MG, BMP ####[address] [address] USARBC (Bld) [#/Vol]2.69 10*6/uLLow3.90-5.60The [facility] Physician GroupComment on above:Performed By: #### CBCNO, MG, BMP ####[address] [address] USAWBC (Bld) [#/Vol]7.9 10*3/uLNormal4.1-10.5The [facility] Physician GroupComment on above:Performed By: #### CBCNO, MG, BMP ####[place] [id number] USALeukocytes [#/volume] corrected for nucleated erythrocytes in Blood by Automated counOrdered By: Emile Reynolds on 88-11-4336NCM corrected for nucl RBC Auto (Bld) [#/Vol]Leukocytes [#/volume] corrected for nucleated erythrocytes in Blood by Automated coun4.1-10.5FMain Campus Medical CenterMCH Auto (RBC) [Entitic mass]Ordered By: Emile Reynolds on 74-52-7855RHK (RBC) [Entitic mass]MCH [Entitic mass] by Automated count27.5-35.2 [facility] HospitalMCHC Auto (RBC) [Mass/Vol]Ordered By: Emile Reynolds on 57-82-0994BMEO (RBC) [Mass/Vol]MCHC [Mass/volume] by Automated count 32.5-35.6FMain Campus Medical CenterMCV Auto (RBC) [Entitic vol]Ordered By: Emile Reynolds on 03-36-7849RJE (RBC) [Entitic vol]MCV [Entitic volume] by Automated count83.5-101[facility] HospitalMagnesiumon 12-27-2024 Magnesium [Mass/Vol]2.3 mg/dLNormal1.9-2.7The [facility] Physician GroupComment on above:Result Comment: PERFORMED BY: [facility] [address] [place] [address] PATHOLOGIST ENGAGEMENT LIAISON KRISTEL LU M.D.Performed By: #### CBCNO, MG, BMP ####[facility] [place] [address] USAMagnesium [Mass/volume] in Serum or PlasmaOrdered By: Emile Reynolds on 32-60-7923Qdgezqcok [Mass/Vol]Magnesium [Mass/volume] in Serum or Plasma1.9-2.7FMain Campus Medical CenterNo Panel InformationOrdered By: Emile Reynolds on 12-27-2024 Estimated GFR (CKD-EPI)17.934 mL/MinAvita Health System Ontario HospitalPharmacy Creatinine Clearance (Chem20.71[facility]17.934 mL/Min [facility]20.71[facility] HospitalPlatelet mean volume Auto (Bld) [Entitic vol]Ordered By: Emile Reynolds on 12-27-2024 Platelet mean volume (Bld) [Entitic vol]Platelet mean volume [Entitic volume] in Blood by Automated count6.6-10.1FMain Campus Medical CenterPlatelets Auto (Bld) [#/Vol]Ordered By: Emile Reynolds on 80-48-6165Cfbbjujxq (Bld) [#/Vol] Platelets [#/volume] in Blood by Automated -011WrtthhkduAvita Health System Ontario HospitalPotassium [Moles/volume] in Serum or PlasmaOrdered By: Emile Reynolds on 36-58-9569Serqyuckr [Moles/Vol]Potassium [Moles/volume] in Serum or Plasma3.5-5.1FMain Campus Medical CenterRBC Auto (Bld) [#/Vol]Ordered By: Emile Reynolds on 59-63-1563SWW (Bld) [#/Vol]Erythrocytes [#/volume] in Blood by Automated countLow3.90-5.60[facility] [place] [facility] Hospitalerum or plasma anion gap determinationOrdered By: Emile Reynolds on 86-01-7585Bbtom gap [Moles/Vol]Serum or plasma anion gap determination6.0-15.0[facility] [place] [facility] Hospitalodium [Moles/volume] in Serum or PlasmaOrdered By: Emile Reynolds on 34-75-9172Bepupb [Moles/Vol]Sodium [Moles/volume] in Serum or Cihxoh699-152 [facility] HospitalUrea nitrogen [Mass/volume] in Serum or Plasma Ordered By: Emile Reynolds on 73-02-9524Wbrc nitrogen [Mass/Vol]Urea nitrogen [Mass/volume] in Serum or PlasmaHigh7-25[facility] HospitalBasic Metabolic Panelon 69-88-9042Wwwqe gap [Moles/Vol]12.5 mmol/LNormal6.0-15.0The [facility] Physician GroupComment on above:Performed By: #### BMP, MG, CBC ####[facility] [address] [place] [address] USACalcium [Mass/Vol]8.1 mg/dLLow8.6-10.3The [facility] Physician GroupComment on above: Performed By: #### BMP, MG, CBC ####[facility] [address] [place] [address] USAChloride [Moles/Vol]96 mmol/ZEtv60-514Yvo [facility] Physician GroupComment on above:Performed By: #### BMP, MG, CBC ####[place] [address] [place] [address] USACO2 [Moles/Vol]31.5 mmol/LHigh21.0-31.0The [facility] Physician GroupComment on above:Performed By: #### BMP, MG, CBC ####[address] [address] USACreatinine [Mass/Vol]3.82 mg/dLHigh0.70-1.30The [facility] Physician GroupComment on above:Performed By: #### BMP, MG, CBC ####[place] [address] USACreatinine Clr Calc Pharmacy 17.90NoLifeCare Hospitals of North Carolina Physician GroupComment on above:Performed By: #### BMP, MG, CBC ####[place] [address] USAEstimated GFR15.046 mL/MinNoLifeCare Hospitals of North Carolina Physician [facility] CenterComment on above:Performed By: #### BMP, MG, CBC ####[place] [address] USAGlucose [Mass/Vol]111 mg/yTGzvr02-761Xof [facility] Physician GroupComment on above:Result Comment: Random Glucose Reference Range is dependent on time and content of last meal. Glucose of more than 200 mg/dL in a nonstressed, ambulatory subject supports the diagnosis of Diabetes Mellitus. ADA recommended reference rangePerformed By: #### BMP, MG, CBC ####[place] [id number] USAPotassium [Moles/Vol] 4.0 mmol/LNormal3.5-5.1The [facility] Physician GroupComment on above:Performed By: #### BMP, MG, CBC ####[place] [id number] USASodium [Moles/Vol]136 mmol/DHdqqgo968-698Hfi [facility] Physician GroupComment on above:Performed By: #### BMP, MG, CBC ####[place] [id number] USAUrea nitrogen [Mass/Vol]85 mg/dLHigh7-25The [facility] Physician GroupComment on above:Performed By: #### BMP, MG, CBC ####[place] [id number] USABasophils Auto (Bld) [#/Vol]Ordered By: Emile Reynolds on 69-65-7322Bxjbpkdtz (Bld) [#/Vol]Automated basophil count0.0-0.2 [facility] HospitalBasophils/100 WBC Auto (Bld)Ordered By: Emile Reynolds on 37-46-1667Lmclweest/100 WBC (Bld)Automated basophil %.[facility] HospitalComplete Blood Count Auto Diffon 36-07-5174Wjsmezqax (Bld) [#/Vol]0.0 10*3/uLNormal0.0-0.2The [facility] Physician [facility] CenterComment on above:Result Comment: PERFORMED BY: [address] [place] [id number] PATHOLOGIST ENGAGEMENT LIAISON KRISTEL LU M.D.Performed By: #### BMP, MG, CBC ####[place] [address] USABasophils/100 WBC (Bld)0.2 %Normal.The [facility] Physician GroupComment on above:Performed By: #### BMP, MG, CBC ####[place] [id number] USAEosinophils (Bld) [#/Vol]0.3 10*3/uLNormal0.0-0.45The [facility] Physician [facility] CenterComment on above:Performed By: #### BMP, MG, CBC ####[place] [address] USAEosinophils/100 WBC (Bld)4.3 %Normal.The [facility] Physician GroupComment on above:Performed By: #### BMP, MG, CBC ####[place] [address] USAErythrocyte distribution width (RBC) [Ratio]14.8 %Fblfvw70.0-14.8The [facility] Physician GroupComment on above:Performed By: #### BMP, MG, CBC ####[place] [address] [place] Hematocrit (Bld) [Volume fraction]21.1 %Low38.8-50.0The [facility] Physician GroupComment on above:Performed By: #### BMP, MG, CBC ####[place] [address] USAHemoglobin (Bld) [Mass/Vol]7.4 g/dLLow13.0-17.0The [facility] Physician GroupComment on above:Performed By: #### BMP, MG, CBC ####[place] [address] USALymphocytes (Bld) [#/Vol]0.7 10*3/uLLow1.00-4.8The [facility] Physician GroupComment on above:Performed By: #### BMP, MG, CBC ####[place] [address] USALymphocytes/100 WBC (Bld)10.2 %Normal.The [facility] Physician GroupComment on above:Performed By: #### BMP, MG, CBC ####[place] [address] USAMCH (RBC) [Entitic mass]32.9 hnEiusti49.5-35.2The [facility] Physician GroupComment on above:Performed By: #### BMP, MG, CBC ####[place] [address] USAMCV (RBC) [Entitic vol]93.7 mBJgwary31.5-101The [facility] Physician GroupComment on above:Performed By: #### BMP, MG, CBC ####[place] [address] USAMean Corpuscular HGB Conc35.1 g/oYTwoybt65.5-35.6The [facility] Physician GroupComment on above:Performed By: #### BMP, MG, CBC ####[place] [address] [place] Monocytes (Bld) [#/Vol]0.9 10*3/uLHigh0.0-0.8The [facility] Group Comment on above:Performed By: #### BMP, MG, CBC ####[place] [address] USAMonocytes/100 WBC (Bld)13.1 %Normal. The [facility] Physician GroupComment on above:Performed By: #### BMP, MG, CBC ####[place] [address] [place] Neutrophils (Bld) [#/Vol]5.0 10*3/uLNormal1.8-7.7The [facility] Comment on above:Performed By: #### BMP, MG, CBC ####[place] [address] USANeutrophils/100 WBC (Bld)72.2 %Normal. The [facility] Physician GroupComment on above:Performed By: #### BMP, MG, CBC ####[place] [address] USANRBC% 0.1 /100{WBC}Normal0-0.5The [facility] Physician GroupComment on above:Performed By: #### BMP, MG, CBC ####[place] [address] USAPlatelet mean volume (Bld) [Entitic vol]8.0 fLNormal 6.6-10.1The [facility] Physician GroupComment on above:Performed By: #### BMP, MG, CBC ####[place] [address] USAPlatelets (Bld) [#/Vol]142 10*3/sXGds725-596Hhx [facility] Comment on above:Performed By: #### BMP, MG, CBC ####[place] [address] USARBC (Bld) [#/Vol]2.25 10*6/uLLow 3.90-5.60The [facility] Physician GroupComment on above:Performed By: #### BMP, MG, CBC ####[place] [place] [address] USAWBC (Bld) [#/Vol]7.0 10*3/uLNormal4.1-10.5The [facility] Group Comment on above:Performed By: #### BMP, MG, CBC ####[place] [place] [address] USAEosinophils Auto (Bld) [#/Vol]Ordered By: Emile Reynolds on 33-89-0874Dgitkkxreik (Bld) [#/Vol]Automated eosinophil count0.0-0.45[facility] HospitalEosinophils/100 WBC Auto (Bld) Ordered By: Emile Reynolds on 22-09-5264Kjdcdwlrbpt/100 WBC (Bld)Automated eosinophil %.[facility] HospitalLymphocytes Auto (Bld) [#/Vol] Ordered By: Emlie Reynolds on 17-48-0480Fiouvzgconz (Bld) [#/Vol]Lymphocytes [#/volume] in Blood by Automated countLow1.00-4.8[facility] HospitalLymphocytes/100 WBC Auto (Bld)Ordered By: Emile Reynolds on 12-26-2024 Lymphocytes/100 WBC (Bld)Lymphocytes/100 leukocytes in Blood by Automated count. [facility] HospitalMagnesiumon 66-20-7140Idyluphbs [Mass/Vol]2.5 mg/dLNormal1.9-2.7The [facility] Physician GroupComment on above:Result Comment: PERFORMED BY: [facility] [address] [place] [address] PATHOLOGIST ENGAGEMENT LIAISON KRISTEL LU M.D.Performed By: #### BMP, MG, CBC ####[place] [place] [address] USAMonocytes Auto (Bld) [#/Vol]Ordered By: Emile Reynolds on 41-23-2949Hueniaqla (Bld) [#/Vol]Automated blood monocyte countHigh0.0-0.8[facility] HospitalMonocytes/100 WBC Auto (Bld)Ordered By: Emile Reynolds on 11-99-3439Gbevnqqpc/100 WBC (Bld) Automated monocyte %.[facility] HospitalNeutrophils Auto (Bld) [#/Vol]Ordered By: Emile Reynolds on 12-61-4249Papjcytxhjf (Bld) [#/Vol] Neutrophils [#/volume] in Blood by Automated count1.8-7.7FMain Campus Medical CenterNeutrophils/100 WBC Auto (Bld)Ordered By: Emile Reynolds on 33-27-1066Taggjwsrpip/100 WBC (Bld)Automated neutrophil %.[facility] HospitalNucleated erythrocytes [Presence] in Blood by Automated count Ordered By: Emile Reynolds on 88-19-2080Mgeonaiic RBC Auto Ql (Bld)Nucleated erythrocytes [Presence] in Blood by Automated count0-0.5FMain Campus Medical CenterPathology study report documentOrdered By: Rome Leslie on 12-26-2024 Pathology studyAvita Health System Ontario Hospital Other WBC Auto (Bld) [#/Vol]Ordered By: Emile Reynolds on 58-40-0448MKI (Bld) [#/Vol]Leukocytes [#/volume] in Blood by Automated count 4.1-10.5FMain Campus Medical CenterBasic Metabolic Panelon 67-62-6353Tgjkq gap [Moles/Vol]10.1 mmol/LNormal6.0-15.0The [facility] Physician GroupComment on above:Performed By: #### RENAL, CBC #### [facility] [address] [place] [address] USACalcium [Mass/Vol]7.9 mg/dLLow8.6-10.3The [facility] Physician GroupComment on above:Performed By: #### RENAL, CBC #### [facility] [address] [place] [address] USAChloride [Moles/Vol]97 mmol/REqh57-827Xpq [facility] Physician GroupComment on above:Performed By: #### RENAL, CBC #### [facility] [address] [place] [address] USACO2 [Moles/Vol]32.0 mmol/LHigh21.0-31.0The [facility] Physician GroupComment on above:Performed By: #### RENAL, CBC #### [facility] [address] [place] [address] USACreatinine [Mass/Vol]3.34 mg/dLHigh0.70-1.30The [facility] Physician GroupComment on above:Performed By: #### RENAL, CBC #### [facility] [address] [place] [address] USACreatinine Clr Calc Omaeklue06.47NoLifeCare Hospitals of North Carolina Physician GroupComment on above:Performed By: #### RENAL, CBC #### [facility] [address] [place] [address] USAEstimated GFR17.677 mL/MinNoLifeCare Hospitals of North Carolina Physician GroupComment on above:Performed By: #### RENAL, CBC #### [facility] [address] [place] [address] USAGlucose [Mass/Vol]135 mg/nDNhkk83-618Suy [facility] Physician GroupComment on above:Result Comment: Random Glucose Reference Range is dependent on time and content of last meal. Glucose of more than 200 mg/dL in a nonstressed, ambulatory subject supports the diagnosis of Diabetes Mellitus. ADA recommended reference rangePerformed By: #### RENAL, CBC #### [facility] [address] [place] [address] USAPotassium [Moles/Vol]4.1 mmol/LNormal3.5-5.1The [facility] Physician GroupComment on above:Performed By: #### RENAL, CBC #### [facility] [address] [place] [address] USASodium [Moles/Vol]135 mmol/ZPfw122-149Pbp [facility] Physician GroupComment on above:Performed By: #### RENAL, CBC #### [facility] [address] [place] [address] USAUrea nitrogen [Mass/Vol]81 mg/dLHigh7-25The [facility] Physician GroupComment on above:Performed By: #### RENAL, CBC #### [place] [address] USAComplete Blood Count Auto Diffon 54-13-9951Csgkhlhio (Bld) [#/Vol]0.0 10*3/uLNormal0.0-0.2The [facility] Physician GroupComment on above: Result Comment: PERFORMED BY: [place] [address] PATHOLOGIST ENGAGEMENT LIAISON KRISTEL LU M.D.Performed By: #### RENAL, CBC #### [place] [address] USABasophils/100 WBC (Bld)0.2 %Normal.The [facility] Physician GroupComment on above:Performed By: #### RENAL, CBC #### [place] [address] USAEosinophils (Bld) [#/Vol]0.1 10*3/uLNormal0.0-0.45The [facility] Physician GroupComment on above:Performed By: #### RENAL, CBC #### [place] [address] USAEosinophils/100 WBC (Bld)1.4 %Normal.The [facility] Physician GroupComment on above:Performed By: #### RENAL, CBC #### [place] [address] USAErythrocyte distribution width (RBC) [Ratio]14.6 %Normal 12.0-14.8The [facility] Physician GroupComment on above:Performed By: #### RENAL, CBC #### [place] [address] USAHematocrit (Bld) [Volume fraction]20.9 %Low38.8-50.0The [facility] Physician GroupComment on above:Performed By: #### RENAL, CBC #### [place] [address] USAHemoglobin (Bld) [Mass/Vol]7.2 g/dLLow13.0-17.0The [facility] Physician GroupComment on above:Performed By: #### RENAL, CBC #### [place] [address] USALymphocytes (Bld) [#/Vol]0.7 10*3/uLLow1.00-4.8The [facility] Physician GroupComment on above:Performed By: #### RENAL, CBC #### [place] [address] USALymphocytes/100 WBC (Bld)9.0 %Normal.The [facility] Physician GroupComment on above:Performed By: #### RENAL, CBC #### [place] [address] USAMCH (RBC) [Entitic mass]32.8 niUlywpp88.5-35.2The [facility] Physician GroupComment on above:Performed By: #### RENAL, CBC #### [place] [address] USAV (RBC) [Entitic vol]95.3 cJLavjxc42.5-101The [facility] Physician GroupComment on above:Performed By: #### RENAL, CBC #### [place] [address] USAMean Corpuscular HGB Conc34.4 g/aNSqpbno19.5-35.6The [facility] Physician GroupComment on above:Performed By: #### RENAL, CBC #### [place] [address] USAMonocytes (Bld) [#/Vol]0.8 10*3/uLNormal0.0-0.8The [facility] Physician GroupComment on above:Performed By: #### RENAL, CBC #### [place] [address] USAMonocytes/100 WBC (Bld)10.2 %Normal.The [facility] Physician GroupComment on above:Performed By: #### RENAL, CBC #### [address] [place] [address] USANeutrophils (Bld) [#/Vol]6.3 10*3/uLNormal1.8-7.7The [facility] Physician GroupComment on above:Performed By: #### RENAL, CBC #### [facility] [address] [place] [id number] USANeutrophils/100 WBC (Bld)79.2 %Normal.The [facility] Physician GroupComment on above:Performed By: #### RENAL, CBC #### [facility] [address] [place] [address] USANRBC%0.1 /100{WBC}Normal0-0.5The [facility] Comment on above:Performed By: #### RENAL, CBC #### [facility] [address] [place] [address] USAPlatelet mean volume (Bld) [Entitic vol]8.0 fLNormal 6.6-10.1The [facility] Physician GroupComment on above:Performed By: #### RENAL, CBC #### [facility] [address] [place] [address] USAPlatelets (Bld) [#/Vol]137 10*3/yFZyz970-470Jzx [facility] Physician GroupComment on above:Performed By: #### RENAL, CBC #### [facility] [address] [place] [address] USARBC (Bld) [#/Vol]2.19 10*6/uLLow3.90-5.60The [facility] Physician GroupComment on above:Performed By: #### RENAL, CBC #### [facility] [address] [place] [address] USAWBC (Bld) [#/Vol]8.0 10*3/uLNormal4.1-10.5The [facility] Physician GroupComment on above:Performed By: #### RENAL, CBC #### [place] [address] USAGlucose Glucometer (BldC) [Mass/Vol]Ordered By: Emile Reynolds on 31-50-5487Xqhwwec [Mass/Vol]Capillary blood glucose measurement by glucometer (mass/volume)[facility] HospitalComment on above:Random Glucose Reference Range is dependent on time and content of last meal. Glucose of more than 200 mg/dL in a nonstressed, ambulatory subject supports the diagnosis of Diabetes Mellitus.Glucose Poct Glucometerson 02-29-3534Ykabmgs [Mass/Vol]185 mg/dLNormAdventHealth Brandon ER Physician GroupComment on above:Result Comment: Random Glucose Reference Range is dependent on time and content of last meal. Glucose of more than 200 mg/dL in a nonstressed, ambulatory subject supports the diagnosis of Diabetes Mellitus. PERFORMED BY: [place] [address] PATHOLOGIST ENGAGEMENT LIAISON KRISTEL LU M.D.Performed By: #### RENAL, CBC #### [place] [address] USAMagnesiumon 59-24-2221Dkpvsqdfq [Mass/Vol]2.5 mg/dLNormal 1.9-2.7The [facility] Physician GroupComment on above:Result Comment: PERFORMED BY: [place] [address] PATHOLOGIST ENGAGEMENT LIAISON KRISTEL LU M.D.Performed By: #### RENAL, CBC #### [facility] [address] [place] [address] USABasic Metabolic Panelon 00-93-3638Sclix gap [Moles/Vol] 11.2 mmol/LNormal6.0-15.0The [facility] Physician GroupComment on above:Performed By: #### MG, BMP, CBCNO ####[facility] [id number] [place] [id number] USACalcium [Mass/Vol]7.7 mg/dLLow8.6-10.3The [facility] Physician GroupComment on above:Performed By: #### MG, BMP, CBCNO ####[facility] [address] [place] [address] USAChloride [Moles/Vol] 101 mmol/AEamsmz42-743Vop [facility] Physician GroupComment on above:Performed By: #### MG, BMP, CBCNO ####[place] [address] [place] [id number] USACO2 [Moles/Vol]30.1 mmol/DNhzkla38.0-31.0The [facility] Physician GroupComment on above:Performed By: #### MG, BMP, CBCNO ####[place] [address] [place] [address] [place] Creatinine [Mass/Vol]3.40 mg/dLHigh0.70-1.30The [facility] Physician GroupComment on above:Performed By: #### MG, BMP, CBCNO ####[place] [address] [place] [address] USACreatinine Clr Calc Nncvgzkn57.11 NormalThe [facility] Hospital Physician GroupComment on above:Performed By: #### MG, BMP, CBCNO ####[place] [address] [place] Estimated GFR17.303 mL/MinNormalThe [facility] Physician GroupComment on above: Performed By: #### MG, BMP, CBCNO ####[place] [address] USAGlucose [Mass/Vol]158 mg/gBGwlu55-251Hvf [facility] Physician GroupComment on above:Result Comment: Random Glucose Reference Range is dependent on time and content of last meal. Glucose of more than 200 mg/dL in a nonstressed, ambulatory subject supports the diagnosis of Diabetes Mellitus. ADA recommended reference rangePerformed By: #### MG, BMP, CBCNO ####[place] [address] USAPotassium [Moles/Vol] 4.3 mmol/LNormal3.5-5.1The [facility] Physician GroupComment on above:Performed By: #### MG, BMP, CBCNO ####[place] [address] [place] [address] USASodium [Moles/Vol]138 mmol/FKtlrmo464-779Vey [facility] Physician GroupComment on above:Performed By: #### MG, BMP, CBCNO ####[address] [address] USAUrea nitrogen [Mass/Vol]70 mg/dLHigh7-25The [facility] Physician GroupComment on above:Performed By: #### MG, BMP, CBCNO ####[place] [id number] USAHemogram CBC Without Diffon 12-24-2024 Erythrocyte distribution width (RBC) [Ratio]14.2 %Dvdait06.0-14.8The [facility] Physician GroupComment on above:Performed By: #### MG, BMP, CBCNO ####[place] [id number] USAHematocrit (Bld) [Volume fraction]25.3 %Low38.8-50.0The [facility] Physician GroupComment on above:Performed By: #### MG, BMP, CBCNO ####[place] [address] USAHemoglobin (Bld) [Mass/Vol]8.7 g/dLLow 13.0-17.0The [facility] Physician GroupComment on above:Performed By: #### MG, BMP, CBCNO ####[place] [phone] [facility] ([facility]) [Entitic mass]32.8 ceOdofcc09.5-35.2The [facility] Comment on above:Performed By: #### MG, BMP, CBCNO ####[place] [phone] [facility] (RBC) [Entitic vol]95.5 fL Ywcrmy87.5-101The [facility] Physician GroupComment on above:Performed By: #### MG, BMP, CBCNO ####[place] [address] USAMean Corpuscular HGB Conc34.3 g/iULougbm30.5-35.6The [facility] Physician GroupComment on above:Performed By: #### MG, BMP, CBCNO ####[place] [id number] USAPlatelet mean volume (Bld) [Entitic vol]7.7 fLNormal6.6-10.1The [facility] Physician GroupComment on above:Result Comment: PERFORMED BY: [facility] [address] [place] [id number] PATHOLOGIST ENGAGEMENT LIAISON KRISTEL LU M.D.Performed By: #### MG, BMP, CBCNO ####[place] [address] USAPlatelets (Bld) [#/Vol]143 10*3/hMShl642-823Dhi [facility] Physician GroupComment on above: Performed By: #### MG, BMP, CBCNO ####[place] [address] USARBC (Bld) [#/Vol]2.64 10*6/uLLow3.90-5.60The [facility] Physician GroupComment on above:Performed By: #### MG, BMP, CBCNO ####[place] [id number] USAWBC (Bld) [#/Vol]10.8 10*3/uLHigh4.1-10.5The [facility] Physician GroupComment on above:Performed By: #### MG, BMP, CBCNO ####[place] [address] USAMagnesiumon 09-84-0876Qmwhxvwtr [Mass/Vol]2.4 mg/dLNormal1.9-2.7The [facility] Physician GroupComment on above:Result Comment: PERFORMED BY: [facility] [address] [id number] PATHOLOGIST ENGAGEMENT LIAISON KRISTEL LU M.D.Performed By: #### MG, BMP, CBCNO ####[place] [id number] USAAppearance of Urine Ordered By: Emile Reynolds on 68-98-4972Hctzdfshcf (U)Urine appearanceClear [facility] HospitalArterial Blood Gason 19-17-8935DLU Base Excess- 0.9 mmol/LNormal-3.0-3.0The [facility] Physician GroupComment on above:Performed By: #### ABG ####Point of Care testing,ABG Frac Inspired O2100 %NormalThe [facility] Physician [facility] CenterComment on above:Performed By: #### ABG ####Point of Care testing,ABG Oxygen Content6.4 mmol/LLow6.6-9.7The [facility] Physician [facility] Comment on above:Performed By: #### ABG ####Point of Care testing,ABG Oxygen Kegzofngqx73.8 %Npxuif82.0-100.0The [facility] Physician GroupComment on above: Performed By: #### ABG ####Point of Care testing,ABG MGV779.6 mm[Hg]Normal 35.0-45.0The [facility] Physician GroupComment on above:Performed By: #### ABG ####Point of Care testing,ABG PEEP6 xfA79GwcbloVtaHCA Florida [facility] Emergency Physician [facility] Comment on above:Performed By: #### ABG ####Point of Care testing,ABG PH7.41 Normal7.35-7.45[facility] Physician [facility] CenterComment on above:Performed By: #### ABG ####Point of Care testing,ABG KC0635.6 mm[Hg]Off scale high80.0-100.0[facility] Physician GroupComment on above:Performed By: #### ABG ####Point of Care testing,ABG Pressure Support6.0 bgS64YufdtoWzlLifeCare Hospitals of North Carolina Physician [facility] Comment on above:Performed By: #### ABG ####Point of Care testing,Oxygen Device BiPAPNormAdventHealth Brandon ER Physician GroupComment on above:Performed By: #### ABG ####Point of Care testing,Respiratory CriticalNormAdventHealth Brandon ER Physician GroupComment on above:Result Comment: Critical Value called on: 12/23/2024 at 21:14 PERFORMED BY: [facility] [place] [address] PATHOLOGIST ENGAGEMENT LIAISON KRISTEL LU M.D.Performed By: #### ABG ####Point of Care testing,VBG Draw SiteRigHCA Florida University Hospital Physician GroupComment on above: Performed By: #### ABG ####Point of Care testing,Arterial Blood GasOrdered By: Emile Reynolds on 85-13-8931AV4 [Moles/Vol]24.6 mmol/TRcraqn60.0-27.0[facility] HospitalComment on above:Performed By: #### ABG ####Point of Care testing,HCO3 (Bld) [Moles/Vol]23.5 mmol/VPwdguy40.0-29.0[facility] HospitalComment on above:Performed By: #### ABG ####Point of Care testing, Bacteria [Presence] in Urine by AutomatedOrdered By: Emile Reynolds on 12-23-2024 Bacteria Auto Ql (U)Bacteria [Presence] in Urine by AutomatedHighNone Seen [facility] HospitalBilirubin Test strip Ql (U)Ordered By: Emile Reynolds on 49-10-8474Lbdkylomp Ql (U)Bilirubin.total [Presence] in Urine by Test stripNegativeAvita Health System Ontario HospitalColor Auto (U)Ordered By: Emile Reynolds on 44-11-1850Luxqf (U)Color of Urine by AutoYellowAvita Health System Ontario HospitalComplete Blood Count Auto Diffon 15-91-3595Uihrumdpr (Bld) [#/Vol] 0.0 10*3/uLNormal0.0-0.2The [facility] Physician GroupComment on above:Order Comment: Comment send as soon as patient arrivesResult Comment: PERFORMED BY: [facility] [address] [place] [address] PATHOLOGIST ENGAGEMENT LIAISON KRISTEL LU M.D.Performed By: #### CBC #### [facility] [address] [place] [address] USABasophils/100 WBC (Bld)0.2 %Normal.The [facility] Physician GroupComment on above:Order Comment: Comment send as soon as patient arrives Performed By: #### CBC #### [place] [address] USAEosinophils (Bld) [#/Vol]0.0 10*3/uLNormal0.0-0.45The [facility] Physician GroupComment on above:Order Comment: Comment send as soon as patient arrivesPerformed By: #### CBC #### [place] [address] USAEosinophils/100 WBC (Bld)0.1 %Normal.The [facility] Physician GroupComment on above:Order Comment: Comment send as soon as patient arrivesPerformed By: #### CBC #### [place] [address] USAErythrocyte distribution width (RBC) [Ratio]14.8 %Normal 12.0-14.8The [facility] Physician GroupComment on above:Order Comment: Comment send as soon as patient arrivesPerformed By: #### CBC #### [place] [address] USAHematocrit (Bld) [Volume fraction]29.5 %Low38.8-50.0The [facility] Physician GroupComment on above:Order Comment: Comment send as soon as patient arrivesPerformed By: #### CBC #### [place] [address] USAHemoglobin (Bld) [Mass/Vol]9.9 g/dLLow13.0-17.0The [facility] Physician GroupComment on above:Order Comment: Comment send as soon as patient arrivesPerformed By: #### CBC #### [place] [address] USALymphocytes (Bld) [#/Vol]0.4 10*3/uLLow1.00-4.8The [facility] Physician GroupComment on above:Order Comment: Comment send as soon as patient arrivesPerformed By: #### CBC #### [place] [address] USALymphocytes/100 WBC (Bld)3.3 %Normal.The [facility] Physician GroupComment on above:Order Comment: Comment send as soon as patient arrivesPerformed By: #### CBC #### [place] [id number] [facility] (RBC) [Entitic mass]31.9 vwKstxcd67.5-35.2The [facility] Physician GroupComment on above:Order Comment: Comment send as soon as patient arrivesPerformed By: #### CBC #### [facility] [address] [place], [place] [address]V (RBC) [Entitic vol]95.5 vDKnglup53.5-101The [facility] Physician GroupComment on above:Order Comment: Comment send as soon as patient arrivesPerformed By: #### CBC #### [place] [address] USAMean Corpuscular HGB Conc33.4 g/vDTclnpa30.5-35.6The [facility] Physician GroupComment on above:Order Comment: Comment send as soon as patient arrivesPerformed By: #### CBC #### [place] [address] USAMonocytes (Bld) [#/Vol]0.8 10*3/uLNormal0.0-0.8The [facility] Physician GroupComment on above:Order Comment: Comment send as soon as patient arrivesPerformed By: #### CBC #### [place] [address] USAMonocytes/100 WBC (Bld)6.6 %Normal.The [facility] Physician GroupComment on above:Order Comment: Comment send as soon as patient arrives Performed By: #### CBC #### [place] [address] USANeutrophils (Bld) [#/Vol]11.3 10*3/uLHigh1.8-7.7The [facility] Physician GroupComment on above:Order Comment: Comment send as soon as patient arrivesPerformed By: #### CBC #### [place] [address] USANeutrophils/100 WBC (Bld)89.8 %Normal.The [facility] Physician GroupComment on above:Order Comment: Comment send as soon as patient arrivesPerformed By: #### CBC #### [facility] [address] [place] [address] USANRBC%0.0 /100{WBC}Normal0-0.5[facility] Comment on above:Order Comment: Comment send as soon as patient arrivesPerformed By: #### CBC #### [place] [address] USAPlatelet mean volume (Bld) [Entitic vol]7.5 fLNormal 6.6-10.1The [facility] Physician GroupComment on above:Order Comment: Comment send as soon as patient arrivesPerformed By: #### CBC #### [place] [address] USAPlatelets (Bld) [#/Vol]149 10*3/jLXiq211-507Itq [facility] Physician GroupComment on above:Order Comment: Comment send as soon as patient arrivesPerformed By: #### CBC #### [facility] [address] [place] [address] USARBC (Bld) [#/Vol]3.09 10*6/uLLow3.90-5.60The [facility] Physician GroupComment on above:Order Comment: Comment send as soon as patient arrivesPerformed By: #### CBC #### [facility] [address] [place] [address] USAWBC (Bld) [#/Vol]12.5 10*3/uLHigh4.1-10.5The [facility] Physician GroupComment on above:Order Comment: Comment send as soon as patient arrivesPerformed By: #### CBC #### [place] [address] USADipstick and Microscopicon 47-89-7040Qrthqtjzbk (U)Clear NormalClearThe [facility] Physician GroupComment on above:Order Comment: Comment results to PCP Dr Linda and [facility] NephroPerformed By: #### RENAL, CBC #### [place] [address] USABacteria,Urine1+HighNone SeenThe [facility] Physician Group Comment on above:Order Comment: Comment results to PCP Dr Linda and [facility] Nephro Performed By: #### RENAL, CBC #### [facility] [address] [place] [address] USABilirubin,UrineNegativeNormalNegativeSacred Heart Hospital Physician GroupComment on above:Order Comment: Comment results to PCP Dr Linda and FPG NephroPerformed By: #### RENAL, CBC #### [facility] [address] [place] [id number] USAColor (U)Light-YellowNormalYellowThe [facility] Physician GroupComment on above:Order Comment: Comment results to PCP Dr Linda and [facility] NephroPerformed By: #### RENAL, CBC #### [facility] [address] [place] [id number] USAGlucose Ql (U)NormalNormalNormalThe [facility] Physician GroupComment on above:Order Comment: Comment results to PCP Dr Linda and [facility] NephroPerformed By: #### RENAL, CBC #### [facility] [address] [place] [address] USAHyaline Casts,UrineNoneNormal0-8The [facility] Physician GroupComment on above:Order Comment: Comment results to PCP Dr Linda and [facility] NephroPerformed By: #### RENAL, CBC #### [facility] [address] [place] [phone] USAKetones Ql (U)NegativeNormalNegativeSacred Heart Hospital Physician GroupComment on above:Order Comment: Comment results to PCP Dr Linda and [facility] NephroPerformed By: #### RENAL, CBC #### [facility] [address] [place] [address] USALeukocyte esterase Test strip Ql (U)NegativeNormalNegative [facility] Physician GroupComment on above:Order Comment: Comment results to PCP Dr Linda and FPG NephroPerformed By: #### RENAL, CBC #### [facility] [address] [place] [id number] USAMucus,UrineRareNormalSacred Heart Hospital Physician GroupComment on above:Order Comment: Comment results to PCP Dr Linda and FPG NephroResult Comment: PERFORMED BY: [place] [address] PATHOLOGIST ENGAGEMENT LIAISON KRISTEL UL M.D.Performed By: #### RENAL, CBC #### [facility] [address] [place] [address] USANitrite,UrineNegativeNormalNegativeThe [facility] Physician GroupComment on above:Order Comment: Comment results to PCP Dr Linda and [facility] NephroPerformed By: #### RENAL, CBC #### [place] [address] USAOccult Blood,UrineTraceHighNegativeThe [facility] Physician GroupComment on above:Order Comment: Comment results to PCP Dr Linda and FPG NephroResult Comment: PERFORMED BY: [place] [address] PATHOLOGIST ENGAGEMENT LIAISON KRISTEL LU M.D.Performed By: #### RENAL, CBC #### [place] [address] USApH (U)5.5 [pH]Normal5.0-9.0[facility] Comment on above:Order Comment: Comment results to PCP Dr Linda and [facility] Nephro Performed By: #### RENAL, CBC #### [address] [address] USAProtein (U) [Mass/Vol]30 mg/dLHighNegativeThe [facility] Physician GroupComment on above:Order Comment: Comment results to PCP Dr Linda and FPG NephroPerformed By: #### RENAL, CBC #### [facility] [address] [place] [address] USARBC,Vsmfz1-5Tjhq6-1Zvk [facility] Physician GroupComment on above:Order Comment: Comment results to PCP Dr Linda and FPG NephroPerformed By: #### RENAL, CBC #### [facility] [address] [place] [id number] USASpecificy [place],Urine1.373Bvrrvl9.001-1.030The [facility] Physician GroupComment on above:Order Comment: Comment results to PCP Dr Linda and FPG NephroPerformed By: #### RENAL, CBC #### [facility] [address] [place] [address] USASquamous Epithelial Cell,Elccd0-1Kdlefp7-1Guq [facility] Physician GroupComment on above:Order Comment: Comment results to PCP Dr Linda and FPG NephroPerformed By: #### RENAL, CBC #### [facility] [address] [place] [address] USAUrobilinogen,UrineNormalNormalNormAdventHealth Brandon ER Physician GroupComment on above:Order Comment: Comment results to PCP Dr Linda and FPG NephroPerformed By: #### RENAL, CBC #### [facility] [address] [place] [address] USAWBC,Jfayt6-2Xgks8-3Hat [facility] Physician GroupComment on above:Order Comment: Comment results to PCP Dr Linda and [facility]PG NephroPerformed By: #### RENAL, CBC #### [place] [address] USAEpithelial cells.squamous [#/area] in Urine sediment by Automated countOrdered By: Emile Reynolds on 22-12-0060Ifegihstxc cells.squamous Auto (Urine sed) [#/Area]Epithelial cells.squamous [#/area] in Urine sediment by Automated count02FMain Campus Medical CenterErythrocytes [#/area] in Urine sediment by Automated countOrdered By: Emile Reynolds on 64-28-9436MME Auto (Urine sed) [#/Area]Erythrocytes [#/area] in Urine sediment by Automated count High04FMain Campus Medical CenterGlucose Poct Glucometerson 12-23-2024 Glucose [Mass/Vol]145 mg/dLNoLifeCare Hospitals of North Carolina Physician GroupComment on above: Result Comment: Random Glucose Reference Range is dependent on time and content of last meal. Glucose of more than 200 mg/dL in a nonstressed, ambulatory subject supports the diagnosis of Diabetes Mellitus. PERFORMED BY: [place] [address] PATHOLOGIST ENGAGEMENT LIAISON KRISTEL LU M.D.Performed By: #### RENAL, CBC #### [facility] [address] [place] [address] USAGlucose [Mass/volume] in Urine by Test stripOrdered By: Emile Reynolds on 91-24-7544Bwneyxu Test strip (U) [Mass/Vol]Glucose [Mass/volume] in Urine by Test stripNormalAvita Health System Ontario HospitalHemoglobin Test strip Ql (U)Ordered By: Emile Reynolds on 81-23-7829Yjccqskbkz Ql (U)Hemoglobin [Presence] in Urine by Test stripHighNegUpper Valley Medical Center Hyaline casts [#/area] in Urine sediment by Automated countOrdered By: Emile Reynolds on 70-14-3191Camzqwz casts Auto (Urine sed) [#/Area]Hyaline casts [#/area] in Urine sediment by Automated count0-8[facility] HospitalKetones Test strip Ql (U)Ordered By: Emile Reynolds on 49-80-6527Xlyywcj Ql (U)Ketones [Presence] in Urine by Test stripNegUpper Valley Medical CenterLon 12-23-2024L Specimen: [id number] Received: 12/23/24 Status: ДМИТРИЙ Hurd Num: [id number] Spec Type: Surgical Subm Dr: Walker Soria MD Tissues: A Femoral Head - Fracture (RT HIP) Procedures: HE/2, Gross/Micro L4, Decalcification Age/ Patient Sex Location Account Attending Physician Delano Oliver 84/M 4N [id number] Emile Reynolds DO SPEC NUM: [id number] RECD: 12/23/24 STATUS: ДМИТРИЙ HURD NUM: [id number] LLOYD: 12/23/24- SUBM DR: Walker Soria MD ENTERED: 12/23/24 [facility] DR: RHIANNA TYPE: Surgical DEPT: S [...] femoral head is staley, firm and uniform. Screen Tacker sections are submitted in A1?A2 after decalcification in rapid Stephon immuno. (2, , [id number] A)Lynda Microscopic Description Microscopic examination is performed. Specimen: [id number] Received: 12/23/24 Status: ДМИТРИЙ Hurd Num: [id number] Spec Type: Surgical Subm Dr: Walker Soria MD Tissues: A Femoral Head - Fracture (RT HIP) Procedures: HE/2, Gross/Micro L4, Decalcification Patient: Delano Oliver [id number] (Continued) Specimen: [id number] Received: 12/23/24 (Continued) Signed (signature on file) Rome Leslie MD 12/26/24 1327 Specimen: [id number] Received: 12/23/24 Status: ДМИТРИЙ Hurd Num: [id number] Spec Type: Surgical Subm Dr: Walker Soria MD Tissues: A Femoral Head - Fracture (RT HIP) Procedures: HE/2, Gross/Micro L4, Decalcification Patient: Delano Oliver [id number] (Continued) Specimen: [id number] Received: 12/23/24 (Continued) CPT Codes 04775 Specimen: [id number] Received: 12/23/24 Status: ДМИТРИЙ Hurd Num: [id number] Spec Type: Surgical Subm Dr: Walker Soria MD Tissues: A Femoral Head - Fracture (RT HIP) Procedures: HE/2, Gross/Micro L4, Decalcification Patient: Delano Oliver [id number] (Continued) Signed (signature on file) Rome Leslie MD 12/26/24 1327Normal [facility] Physician GroupLeukoReduced RBCon 72-15-1066ZnxzcMnbfmci RBC TRANSFUSED 12/26/24 1424NormAdventHealth Brandon ER Physician GroupLeukocyte esterase [Presence] in Urine by Test stripOrdered By: Emile Reynolds on 03-51-2505Stbduibfr esterase Test strip Ql (U)Leukocyte esterase [Presence] in Urine by Test strip NegativeAvita Health System Ontario HospitalLeukocytes [#/area] in Urine sediment by Automated countOrdered By: Emile Reynolds on 43-51-6806QRA Auto (Urine sed) [#/Area]Leukocytes [#/area] in Urine sediment by Automated count45 Brock StreetMucus [Presence] in Urine by AutomatedOrdered By: Emile Reynolds on 33-46-8954Wmbvh Auto Ql (U)Mucus [Presence] in Urine by Automated [facility] HospitalNitrite Test strip Ql (U)Ordered By: Emile Reynolds on 72-78-8024Vdodxkr Ql (U)Nitrite [Presence] in Urine by Test strip NegativeAvita Health System Ontario HospitalNo Panel InformationOrdered By: Emile Reynolds on 30-79-5037Pkzwehip Blood Base Excess-0.9 mmol/L-3.0-3.0[facility] HospitalArterial Blood Oxygen Content6.4 mmol/LLow6.6-9.7 [facility] HospitalArterial Blood Oxygen Aavgkcrqhh54.8 % 95.0-100.0[facility] HospitalArterial Blood Partial Pressure CO2 37.6 mm[Hg]35.0-45.0[facility] HospitalArterial Blood Partial Pressure O2170.6 mm[Hg]Critically high80.0-100.0[facility] HospitalArterial Blood pH7.417.35-7.45[facility] HospitalBlood Gas Critical ValueSee commentAvita Health System Ontario HospitalComment on above: Critical Value called on: 12/23/2024 at 21:14Blood Gas PEEP6 lcW7MFtrxksjnuAvita Health System Ontario HospitalBlood Gas Pressure Support6.0 omW5IRnjzgsrvlAvita Health System Ontario HospitalBlood Gas Sample SiteRight radialAvita Health System Ontario Hospital HuT1728 %[facility] HospitalOxygen Delivery DeviceBipapAvita Health System Ontario Hospital7.417.35-7.45[facility]37.6 mm[Hg] 35.0-45.0[facility]170.6 mm[Hg]Critically high80.0-100.0 [facility]23.5 mmol/L23.0-29.0[facility]-0.9 mmol/L-3.0-3.0[facility]98.8 %95.0-100.0 [facility]6.4 mmol/LLow6.6-9.7FMain Campus Medical Center24.6 mmol/L23.0-27.0[facility]100 %[facility]6 rmX5IQevygvyoiAvita Health System [facility] Hospital6.0 cmH2O [facility] HospitalRight radialAvita Health System Ontario Hospital BipapEast Ohio Regional Hospitalee commentAvita Health System Ontario HospitalProtein Test strip (U) [Mass/Vol]Ordered By: Emile Reynolds on 12-23-2024 Protein (U) [Mass/Vol]Protein [Mass/volume] in Urine by Test stripHighNegative [facility] Regional Hospitalpecific gravity Test strip (U) [Rel density] Ordered By: Emile Reynolds on 14-09-5640Tcvlobon gravity (U) [Rel density]Specific gravity of Urine by Test strip1.001-1.030[facility] HospitalType and Screenon 52-68-9813GIH and Rh group Nom (Bld)Blood group O Rh(D) positive NormalThe Good Hope Hospital Physician GroupComment on above:Order Comment: expiring BB band Transfuse now? Y Number of units to transfuse now? 1 Transfuse now? Y Number of units to transfuse now? 1Result Comment: PERFORMED BY: [place] [address] PATHOLOGIST ENGAGEMENT LIAISON KRISTEL LU M.D.Urobilinogen Test strip (U) [Mass/Vol]Ordered By: Emile Reynolds on 73-96-9756Bzxzyeenyczm (U) [Mass/Vol]Urobilinogen [Mass/volume] in Urine by Test stripNormRegional Medical CenterX-ray reportOrdered By: Dominik Hamm on 15-95-5201Lklaw [facility] [place] [address] XRay Report Signed Patient: Delano Oliver MR#: [id number] : 1940 Acct:[id number] Age/Sex: 84 / M ADM Date: 5 Loc: N Room: 1G7506-5 Type: ADM IN Attending Dr: Emile Reynolds DO Copies to: DO Emile Giron DO~ Ordering Provider: Rachid Adhikari DO Date of Service: 12/23/24 XR/XR chest 1V portable: hypoxia Plain film chest Single view HISTORY: Hypoxia COMPARISON: 12/23/2024 1926 hours FINDINGS: SUPPORT DEVICES: None POSTSURGICAL CHANGES: Stable HEART: Within normal limits PULMONARY MARAIN: Within normal limits MEDIASTINUM: Unremarkable LUNGS AND PLEURA: Improving right midlung consolidation with residual. No developing large pleural effusion. No pneumothorax. BONY STRUCTURES: Intact ADDITIONAL FINDINGS None XR/XR chest 1V portable IMPRESSION: Improving right midlung parenchymal density. Impression dictated by: Dominik Hamm M.D.12/23/2024 9:17 PM Dictation Location: RADIO-PC-20 Transcribed By: [facility] 12/23/242116 Dictated By: Dominik Hamm DO 12/23/242114 Signed By: 12/23/242116 [facility] HospitalX-ray reportOrdered By: Sotero Scott on 26-63-0459Dmkea reportST. FRANCIS [facility] Main [place] [address] [place] [address] XRay Report Signed Patient: Delano Oliver MR#: [id number] : 1940 Acct:[id number] Age/Sex: 84 / M ADM Date: 5 Loc: Room: [address] [place] [address] Type: ADM IN Attending Dr: Emile Reynolds DO Copies to: DO Walker Bhat MD~ Ordering Provider: Walker Soria MD Date of Service: 12/23/24 XR/XR hip RT min 2V(w/wo pelvis)*: Hip Fracture Post op ([id number]) XR/XR knee RT 2V: PAIN ([id number]) XR/XR ankle RT 2V: PAIN RIGHT HIP - 2 views: Right ankle 2 views, right knee 2 views CLINICAL HISTORY: Postop right hemiarthroplasty. COMPARISON: Hip series 12/21/2024 FINDINGS: Right hip Soft tissues demonstrate postoperative changes. No hardwarecomplication. Right knee: Moderate joint effusion. Moderately severe [...] Dictation Location: RADIO-PC-22 Transcribed By: CALI 12/23/24 142 Dictated By: Sotero Scott Jr, DO 12/23/24 142 Signed By: 12/23/24 1426 [facility] Hospitaltudy reportST. FRANCIS HOSPITAL Main [address] [address] XRay Report Signed Patient: Delano Oliver MR#: [id number] : 1940 Acct:[id number] Age/Sex: 84 / M ADM Date: 5 Loc: Room: [address] [place] [address] Type: ADM IN Attending Dr: Emile Reynolds [...] RECOMMENDED TO ENSURE RESOLUTION. Impression dictated by: Guy Cleveland Jr.OKeo12/23/2024 9:50 AM Dictation Location: RADIO-PC-22 Transcribed By: CALI 12/23/24 0950 Dictated By: Sotero Scott Jr, DO 12/23/24 0950 Signed By: 12/23/24 0950 [facility] HospitalXR ankle RT 2Von 17-27-0435WQ ankle RT 2V [facility] Main [address] [address] XRay Report Signed Patient: Delano Oliver MR#: [id number] 24 : 1940 Acct:[id number] Age/Sex: 84 / M ADM Date: 12/21/24 Loc: 4N Room: 2P5966-9 Type: ADM IN Attending Dr: Emile Reynolds DO Copies to: DO Walker Bhat MD Ordering Provider: Walker Soria MD Date of Service: 12/23/24 XR/XR hip RT min 2V(w/wo pelvis)*: Hip Fracture Post op ([id number]) XR/XR knee RT 2V: PAIN ([id number]) XR/XR ankle RT 2V: PAIN RIGHT HIP [...] PROCESS.. Impression dictated by: Sotero Scott Jr., D.OKeo12/23/2024 2:26 PM Dictation Location: [place] [address] Transcribed By: [facility] 12/23/24 1426 Dictated By: Sotero Scott Jr, DO 12/23/24 1424 Signed By: 12/23/24 1426[facility] Physician GroupXR chest 1V portableon 01-52-2426ZT chest 1V [facility] Main [address] [address] XRay Report Signed Patient: Delano Oliver MR#: [id number] [birth year] : 1940 Acct:[id number] Age/Sex: 84 / M ADM Date: 12/21/24 Loc: 4N Room: 7D0039-2 Type: ADM IN Attending Dr: Emile Reynolds [...] Dominik Hamm M.D.12/23/2024 9:17 PM Dictation Location: [place] [address] Transcribed By: [facility] 12/23/242116 Dictated By: Dominik Hamm DO 12/23/242114 Signed By: 12/23/24 [facility] CenterH[facility] Physician GroupXR chest 1V portableST. FRANCIS H[facility]PITAL Main [place] [address] [place] [address] XRay Report Signed Patient: Delano Oliver MR#: [id number] [birth year] : 1940 Acct:[id number] Age/Sex: 84 / M ADM Date: 12/21/24 Loc: 4N Room: 6L4044-0 Type: ADM IN Attending Dr: Emile Reynolds [...] Scott Jr., D.O.12/23/2024 9:50 AM Dictation Location: [place] [address] Transcribed By: [facility] 12/23/2450 Dictated By: Sotero Scott Jr, DO 12/23/2450 Signed By: 12/23/2450[facility] RapidspH Test strip (U)Ordered By: Emile Reynolds on 77-66-3519pV (U)pH of Urine by Test strip5.0-9.0[facility] HospitalBasic Metabolic Panelon 81-86-8035Uhuau gap [Moles/Vol] 11.3 mmol/LNormal6.0-15.0[facility] Physician GroupComment on above:Performed By: #### RENAL, CBC #### [facility] [address] [place] [address] USACalcium [Mass/Vol]8.4 mg/dLLow8.6-10.3[facility] Physician GroupComment on above:Performed By: #### RENAL, CBC #### [facility] [address] [place] [address] USAChloride [Moles/Vol]104 mmol/GNvbzjy45-307Won [facility] Physician GroupComment on above:Performed By: #### RENAL, CBC #### [facility] [address] [place] [address] USACO2 [Moles/Vol]30.4 mmol/TFzrzzr96.0-31.0[facility] Physician GroupComment on above:Performed By: #### RENAL, CBC #### [facility] [address] [place] [address] USACreatinine [Mass/Vol]2.61 mg/dLHigh0.70-1.30The [facility] Physician GroupComment on above:Performed By: #### RENAL, CBC #### [facility] [address] [place] [address] USACreatinine Clr Calc Olhffsby90.99NormAdventHealth Brandon ER Physician GroupComment on above:Result Comment: PERFORMED BY: [place] [address] PATHOLOGIST ENGAGEMENT LIAISON KRISTEL LU M.D.Performed By: #### RENAL, CBC #### [place] [address] USAEstimated GFR23.765 mL/MinNormalThe [facility] Hospital Physician GroupComment on above:Performed By: #### RENAL, CBC #### [place] [address] USAGlucose [Mass/Vol]143 mg/tQCzyf16-542Wyv [facility] Physician GroupComment on above:Result Comment: Random Glucose Reference Range is dependent on time and content of last meal. Glucose of more than 200 mg/dL in a nonstressed, ambulatory subject supports the diagnosis of Diabetes Mellitus. ADA recommended reference rangePerformed By: #### RENAL, CBC #### [place] [address] USAPotassium [Moles/Vol]3.7 mmol/LNormal3.5-5.1The [facility] Physician GroupComment on above:Performed By: #### RENAL, CBC #### [place] [address] USASodium [Moles/Vol]142 mmol/IYhwght756-719Ohz [facility] Physician GroupComment on above:Performed By: #### RENAL, CBC #### [place] [address] USAUrea nitrogen [Mass/Vol]58 mg/dLHigh7-25The [facility] Physician GroupComment on above:Performed By: #### RENAL, CBC #### [place] [address] USAComplete Blood Count Auto Diffon 83-53-5428Ascllncgx (Bld) [#/Vol]0.1 10*3/uLNormal0.0-0.2The [facility] Physician GroupComment on above: Result Comment: PERFORMED BY: [place] [address] PATHOLOGIST ENGAGEMENT LIAISON MOHAMED M EL-FAKHARANY M.D.Performed By: #### RENAL, CBC #### [facility] [address] [place] [address] USABasophils/100 WBC (Bld)0.6 %Normal.The [facility] Physician GroupComment on above:Performed By: #### RENAL, CBC #### [facility] [address] [place] [address] USAEosinophils (Bld) [#/Vol]0.2 10*3/uLNormal0.0-0.45The [facility] Physician GroupComment on above:Performed By: #### RENAL, CBC #### [facility] [address] [place] [address] USAEosinophils/100 WBC (Bld)1.5 %Normal.The [facility] Physician GroupComment on above:Performed By: #### RENAL, CBC #### [place] [address] USAErythrocyte distribution width (RBC) [Ratio]14.2 %Normal 12.0-14.8The [facility] Physician GroupComment on above:Performed By: #### RENAL, CBC #### [place] [address] USAHematocrit (Bld) [Volume fraction]34.4 %Low38.8-50.0The [facility] Physician GroupComment on above:Performed By: #### RENAL, CBC #### [place] [address] USAHemoglobin (Bld) [Mass/Vol]11.7 g/dLLow13.0-17.0The [facility] Physician GroupComment on above:Performed By: #### RENAL, CBC #### [facility] [address] [place] [address] USALymphocytes (Bld) [#/Vol]0.8 10*3/uLLow1.00-4.8The [facility] Physician GroupComment on above:Performed By: #### RENAL, CBC #### [facility] [address] [place] [address] USALymphocytes/100 WBC (Bld)6.8 %Normal.The [facility] Physician GroupComment on above:Performed By: #### RENAL, CBC #### [facility] [address]H (RBC) [Entitic mass]32.2 nhZcwfhb52.5-35.2The [facility] Physician GroupComment on above:Performed By: #### RENAL, CBC #### [address]V (RBC) [Entitic vol]94.5 eSCnwwgd51.5-101The [facility] Physician GroupComment on above:Performed By: #### RENAL, CBC #### [place] [address] USAMean Corpuscular HGB Conc34.1 g/lDPtmjxf67.5-35.6The [facility] Physician GroupComment on above:Performed By: #### RENAL, CBC #### [place] [address] USAMonocytes (Bld) [#/Vol]0.9 10*3/uLHigh0.0-0.8The [facility] Physician GroupComment on above:Performed By: #### RENAL, CBC #### [place] [address] USAMonocytes/100 WBC (Bld)7.7 %Normal.The [facility] Physician GroupComment on above:Performed By: #### RENAL, CBC #### [place] [address] USANeutrophils (Bld) [#/Vol]9.8 10*3/uLHigh1.8-7.7The [facility] Physician GroupComment on above:Performed By: #### RENAL, CBC #### [place] [address] USANeutrophils/100 WBC (Bld)83.4 %Normal.[facility] Physician GroupComment on above:Performed By: #### RENAL, CBC #### [place] [address] USANRBC%0.0 /100{WBC}Normal0-0.5The [facility]ician Group Comment on above:Performed By: #### RENAL, CBC #### [facility] [address] [place] [address] USAPlatelet mean volume (Bld) [Entitic vol]7.2 fLNormal 6.6-10.1The [facility] Physician GroupComment on above:Performed By: #### RENAL, CBC #### [place] [address] USAPlatelets (Bld) [#/Vol]170 10*3/bSPczpch396-653Zqi [facility] Physician GroupComment on above:Performed By: #### RENAL, CBC #### [place] [address] USARBC (Bld) [#/Vol]3.64 10*6/uLLow3.90-5.60The [facility] Physician GroupComment on above:Performed By: #### RENAL, CBC #### [place] [address] USAWBC (Bld) [#/Vol]11.7 10*3/uLHigh4.1-10.5The [facility] Physician GroupComment on above:Performed By: #### RENAL, CBC #### [place] [address] USAECG 12 lead ECGon 12-57-5704FSO 12 lead ECGST[facility] [place] [address] [place] [address] Electrocardiograph Report Signed Patient: Delano Oliver MR#: [id number] [birth year] : 1940 Acct:[id number] Age/Sex: 84 / M ADM Date: 12/21/24 Loc: Room: [address] [place] [address] Type: ADM IN Attending Dr: Jaye Jorgensen [...] detected Abnormal ECG Confirmed by Krysten Bowers ([id number]) on 12/22/2024 9:01:16 PM Referred By: Electronically Signed By: Krysten Bowers Transcribed By: MUS Signed By Krysten Bowers MD 5 2100[facility] Physician GroupActivated partial thromboplastin time (aPTT) in platelet poor plasma by coagulation aon 55-47-5362eWJB Coag (PPP) [Time]Activated partial thromboplastin time (aPTT) in platelet poor plasma by coagulation a22.3-36.2FMain Campus Medical CenterBasophils Auto (Bld) [#/Vol]on 26-82-7256Loxvizksq (Bld) [#/Vol]Automated basophil count0.0-0.1 [facility] HospitalBasophils/100 WBC Auto (Bld)on 12-21-2024 Basophils/100 WBC (Bld)Automated basophil %0.2-2.0[facility] HospitalEosinophils/100 WBC Auto (Bld)on 84-55-0806Qpmdivbvoqq/100 WBC (Bld) Automated eosinophil %0.9-7.0[facility] HospitalErythrocyte distribution width Auto (RBC) [Ratio]on 43-44-1302Xxmlnnycwzf distribution width (RBC) [Ratio]Erythrocyte distribution width [Ratio] by Automated count11.0-15.0 [facility] HospitalEstimated glomerular filtration rate (GFR) non- Americanon 91-14-8752HHD/1.73 sq M.predicted among non-blacks MDRD (S/P/Bld) [Vol rate/Area]Estimated glomerular filtration rate (GFR) non- AmericanLow>=60 mL/min/1.73m 2FMain Campus Medical CenterGlobulin Calc (S) [Mass/Vol]on 59-87-7711Wenwvdmk (S) [Mass/Vol]Serum globulin measurement by calculation (mass/volume)[facility] HospitalHematocrit Auto (Bld) [Volume fraction]on 84-04-7936Xojkvpdjhr (Bld) [Volume fraction]Hematocrit [Volume Fraction] of Blood by Automated fafrgSfx43.0-54.0[facility] HospitalHemoglobin [Mass/volume] in Bloodon 55-46-9662Jgpakksjfu (Bld) [Mass/Vol]Hemoglobin [Mass/volume] in XpgseSpj12.0-18.0[facility] HospitalINR in Platelet poor plasma by Coagulation assayon 08-06-3666GSW Coag (PPP) [Relative time]INR in Platelet poor plasma by Coagulation assay [facility] HospitalComment on above:DESIRED INR:2.0-3.0 CONDITIONS NOT LISTED BELOW2.5-3.5 FOR PROSTHETIC HEART VALVE REPLACEMENT2.5-3.5 RECURRENT THROMBOSISLaboratory - Chemistry and Chemistry - challengeon 85-82-5987Afghrne [Mass/Vol]3.7 g/dL3.4-5.0[facility] HospitalALP [Catalytic activity/Vol]110 U/T62-582RxgxkajyeAvita Health System Ontario HospitalALT [Catalytic activity/Vol]22 U/T12-30NpbkktwocAvita Health System Ontario HospitalAST [Catalytic activity/Vol]19 U/O07-93CqnmjvwjcAvita Health System Ontario HospitalBilirubin [Mass/Vol]0.5 mg/dL0.2-1.0[facility] HospitalCalcium [Mass/Vol]8.7 mg/dL 8.5-10.1FMain Campus Medical CenterChloride [Moles/Vol]102 mmol/L98-107 [facility] HospitalCO2 [Moles/Vol]30.8 mmol/L21.0-32.0[facility] HospitalCreatinine [Mass/Vol]3.27 mg/dLHigh0.70-1.30[facility] HospitalGFR/1.73 sq M.predicted MDRD (S/P/Bld) [Vol rate/Area]22 mL/min/{1.73_m2}Low>=60 mL/min/1.73m 2FMain Campus Medical CenterGlucose [Mass/Vol]101 mg/aE04-915HqsthxvitAvita Health System Ontario HospitalPotassium [Moles/Vol] 3.7 mmol/L3.5-5.1FMain Campus Medical CenterProtein [Mass/Vol]7.3 g/dL 6.4-8.2FCleveland Clinic Marymount Hospitalodium [Moles/Vol]145 mmol/A350-559 [facility] HospitalUrea nitrogen [Mass/Vol]68.0 mg/dLHigh7.0-18.0 [facility] HospitalUrea nitrogen/Creatinine [Mass ratio]20.8 mg/mg [facility] HospitalLaboratory - Hematology and Cell countson 94-75-7991Bwgjuoma granulocytes/100 WBC (Bld)0.9 %High0.0-0.5FMain Campus Medical CenterLeukocytes [#/volume] corrected for nucleated erythrocytes in Blood by Automated counon 86-67-4374PLG corrected for nucl RBC Auto (Bld) [#/Vol]Leukocytes [#/volume] corrected for nucleated erythrocytes in Blood by Automated coun4.0-11.0[facility] HospitalLymphocytes Auto (Bld) [#/Vol]on 06-95-8260Neuzxcmozyn (Bld) [#/Vol]Lymphocytes [#/volume] in Blood by Automated count1.2-3.8[facility] HospitalLymphocytes/100 WBC Auto (Bld)on 01-94-7887Fdghkvbhwze/100 WBC (Bld)Lymphocytes/100 leukocytes in Blood by Automated hcmvtCny95.5-60.0[facility] HospitalH Auto (RBC) [Entitic mass]on 42-15-3280DVW (RBC) [Entitic mass]MCH [Entitic mass] by Automated count25.9-34.0[facility] HospitalMCHC Auto (RBC) [Mass/Vol]on 94-87-5306TPNV (RBC) [Mass/Vol]MCHC [Mass/volume] by Automated count29.9-35.2FMain Campus Medical CenterMCV Auto (RBC) [Entitic vol]on 39-26-6667JNK (RBC) [Entitic vol]MCV [Entitic volume] by Automated countHigh 80.0-94.0[facility] HospitalMonocytes Auto (Bld) [#/Vol]on 76-43-6324Dmbbrgoue (Bld) [#/Vol]Automated blood monocyte count0.3-0.8[facility] HospitalMonocytes/100 WBC Auto (Bld)on 12-44-6994Wzkcpralw/100 WBC (Bld)Automated monocyte %1.7-12.0[facility] Neutrophils Auto (Bld) [#/Vol]on 34-04-1044Csakvetcvyg (Bld) [#/Vol]Neutrophils [#/volume] in Blood by Automated count1.4-6.5FMain Campus Medical Center Neutrophils/100 WBC Auto (Bld)on 57-37-3375Kyiqmsujcwe/100 WBC (Bld)Automated neutrophil %43.0-75.0[facility] HospitalNo Panel Informationon 62-08-7828Gklflbvepba # (Auto)0.3 10 3/uL0.0-0.7FMain Campus Medical CenterImmature Granulocyte # (Auto)0.07 10 3/uLHigh0.00-0.03[facility] HospitalTroponin I High Ccamgmylumx06.8 pg/mL4.0-76.1FMain Campus Medical CenterComment on above:CUT-OFF POINTS HAVE BEEN ESTABLISHED BASED ON THE FOURTHUNIVERSAL DEFINITION OF MYOCARDIAL INFARCTION. THE UPPERREFERENCE LIMIT (URL) OF TROPONIN, DEFINED THE 99THPERCENTILE OF cTnI DISTRIBUTION IN A REFERENCE POPULATION,HAS BEEN CONFIRMED THE DECISION THRESHOLD FOR MIDIAGNOSIS.99TH PERCENTILE = 76.2 PG/MLNOTE: HIGH-SENSITIVITY TROPONIN ASSAY IS NOT INTENDED TO BEUSED IN ISOLATION BUT SHOULD BE INTERPRETED IN CONJUNCTIONWITH OTHER DIAGNOSTIC AND CLINICAL INFORMATION.25.8 pg/mL4.0-76.1 [facility]3.7 g/dL3.4-5.0[facility]0.3 10 3/uL0.0-0.7FMain Campus Medical Center110 U/X98-645VymuxzpltAvita Health System Ontario Hospital22 U/K38-85OzqeukpmwAvita Health System Ontario Hospital19 U/L15-37 [facility]20.8[facility]0.07 10 3/uLHigh0.00-0.03[facility]68.0 mg/dLHigh7.0-18.0 [facility]0.9 %High0.0-0.5FMain Campus Medical Center8.7 mg/dL8.5-10.1FMain Campus Medical Center102 mmol/L98-107 [facility]30.8 mmol/L21.0-32.0[facility]3.27 mg/dLHigh0.70-1.30[facility]22Low>=60 mL/min/1.73m 2FMain Campus Medical Center101 mg/lD46-585TkhuovfifAvita Health System Ontario Hospital3.7 mmol/L3.5-5.1FMain Campus Medical Center145 mmol/L 136-145[facility]0.5 mg/dL0.2-1.0[facility]7.3 g/dL6.4-8.2FMain Campus Medical CenterPlatelet mean volume Auto (Bld) [Entitic vol]on 84-71-5153Ojknamew mean volume (Bld) [Entitic vol]Platelet mean volume [Entitic volume] in Blood by Automated countLow9.5-13.5 [facility] HospitalPlatelets Auto (Bld) [#/Vol]on 12-21-2024 Platelets (Bld) [#/Vol]Platelets [#/volume] in Blood by Automated -196 [facility] HospitalProthrombin time (PT)on 79-66-8178CA Coag (PPP) [Time]Prothrombin time (PT)9.0-11.6FMain Campus Medical CenterRBC Auto (Bld) [#/Vol]on 38-20-3005MGT (Bld) [#/Vol]Erythrocytes [#/volume] in Blood by Automated countLow4.70-6.10[facility] Hospitalerum or plasma albumin/globulin mass ratioon 34-18-9515Liiuxxs/Globulin [Mass ratio]Serum or plasma albumin/globulin mass ratioEast Ohio Regional Hospitalerum or plasma anion gap determinationon 84-74-7959Jwiqa gap [Moles/Vol]Serum or plasma anion gap determinationAvita Health System Ontario HospitalLaboratory - Chemistry and Chemistry - challengeon 59-40-1367Ultq T4 [Mass/Vol]0.82 ng/dL0.76-1.46 [facility] HospitalTSH Qn23.918 m[IU]/LHigh0.358-3.740[facility] HospitalNo Panel Informationon 05-52-9660Vbktx Cuiftvzmtyjxmhqs63 ng/mBZsejeibk04-069VrhxzdfqxAvita Health System Ontario HospitalComment on above:Performed at: [address] [place], [place] [id number] Director: Nathan Munoz PhD, Phone: [phone] ng/rISaxyqjpc34-699QgsjxxlbjAvita Health System Ontario Hospital0.82 ng/dL0.76-1.46[facility]23.918 u[iU]/mLHigh0.358-3.[address] [place], [place] [address]Follow-Upon 11-13-2024 Follow-[id number] Delano Oliver 1940 M Date Provider Department Center 11/13/2024 ENRRIQUE TAVAREZ CARD [facility] Family History Problem Relation Age of Onset Diabetes Mother Heart disease Father Glaucoma Brother Diabetes Maternal Grandmother Clotting disorder Other Family Status - Relation Status Age at Mother Father Brother Maternal Grandmother Other Level of Service:45917 [place] OFFICE/OUTPATIENT ESTABLISHED LOW MDM 20 MIN Reason for Visit and Comments: Atrial Fibrillation [80] Atrial Flutter [101]NormalFayette County Memorial HospitalLaboratory - Chemistry and Chemistry - challengeon 95-06-5641Hemg T4 [Mass/Vol]0.89 ng/dL 0.76-1.46[facility] HospitalTS Qn28.632 m[IU]/LHigh0.358-3.740 [facility] HospitalNo Panel Informationon 10-48-0955Plywt Zlzeqkrhyvrcmuku46 ng/aZQnvibgsd25-980YakjoscebAvita Health System Ontario HospitalComment on above:Performed at: [facility] RehabilitationRvhdiz[address] [place], [place] [id number] Director: Nathan Munoz PhD, Phone: [phone] ng/dLAbnormal 71-180[facility]28.632 u[iU]/mLHigh0.358-3.740[facility]0.89 ng/dL0.76-1.46[facility] HospitalHPon 54-31-8830BLNA Electrophysiology Consult Note Reason for visit: Afib and dilated CMP. 10/17/24 Pt here for DCCV. 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 Subsequent echocardiogram in [...] symptoms. EKG: V pacing. Prior HPI: Delano Oliver is a 84 y.o. year old with [...] infrahisian disease. He was brought back to [facility] on 02/12/2020 due to what was discussed [...] failure) (CMS/HCC) Chronic k (more content not included)...[facility] HospitalNURSNOTEon 17-10-4361HLSQAYEWMN educated pt and on discharge instructions. RN encouraged pt to voice any questions or concerns. Pt verbalizes no questions or concerns at this time. Pt was wheeled off unit with all belongings.[facility] HospitalEstimated glomerular filtration rate (GFR) non- Americanon 72-56-5381BWP/1.73 sq M.predicted among non-blacks MDRD (S/P/Bld) [Vol rate/Area]Estimated glomerular filtration rate (GFR) non- AmericanLow>=60 mL/min/1.73m 2FMain Campus Medical CenterLaboratory - Chemistry and Chemistry - challengeon 89-97-9384Efspjlc [Mass/Vol]8.6 mg/dL8.5-10.1FMain Campus Medical CenterChloride [Moles/Vol]103 mmol/U44-593JrfyqrwrcAvita Health System Ontario HospitalCO2 [Moles/Vol]32.0 mmol/L21.0-32.0[facility] HospitalCreatinine [Mass/Vol]3.07 mg/dLHigh0.70-1.30[facility] HospitalGFR/1.73 sq M.predicted MDRD (S/P/Bld) [Vol rate/Area]24 mL/min/{1.73_m2} Low>=60 mL/min/1.73m 2FMain Campus Medical CenterGlucose [Mass/Vol]124 mg/wWIocj37-132AonarhlimAvita Health System Ontario HospitalMagnesium [Mass/Vol]2.4 mg/dL 1.8-2.4FMain Campus Medical CenterPotassium [Moles/Vol]3.7 mmol/L3.5-5.1 [facility] Hospitalodium [Moles/Vol]143 mmol/K433-359XurodmopoAvita Health System Ontario HospitalUrea nitrogen [Mass/Vol]69.0 mg/dLHigh7.0-18.0[facility] HospitalUrea nitrogen/Creatinine [Mass ratio]22.5 mg/mgEast Ohio Regional Hospitalerum or plasma anion gap determinationon 75-07-1500Redxs gap [Moles/Vol]Serum or plasma anion gap determinationAvita Health System Ontario HospitalOrders Onlyon 69-23-6567Uhxasf [id number] Delano Oliver 1940 M Date Provider Department Center 10/10/2024 [facility] V[facility] LAB UT HeartVAS Family History Problem Relation Age of Onset Diabetes Mother Heart disease Father Glaucoma Brother Diabetes Maternal Grandmother Clotting disorder Other Family Status - Relation Status Age at Mother Father Brother Maternal Grandmother OtherNormalUniCleveland Clinic Mentor Hospital36on [id number] echo result from 09/19/2024: Per Dr. Montoya - EF has improved. Will repeat echo in 6 months. Order entered and faxed to [facility]. Patient and his informed.[facility] HospitalOffice Visiton 17-85-5609Jkdrdj-up [id number] Delano Oliver 1940 M Date Provider Department Center 09/10/2024 TRANG LOPEZ [facility] Hos Family History Problem Relation Age of Onset Diabetes Mother Heart disease Father Glaucoma Brother Diabetes Maternal Grandmother Clotting disorder Other Family Status - Relation Status Age at Mother Father Brother Maternal Grandmother Other Level of Service:57388 CA OFFICE/OUTPATIENT ESTABLISHED LOW MDM 20 [facility] HospitalGlucose Poct Glucometerson 92-24-2939Fpeiohd6 Glu2: Cleaned MeterNormAdventHealth Brandon ER Physician GroupComment on above:Result Comment: PERFORMED BY: [place] [address] PATHOLOGIST ENGAGEMENT LIAISON TRU UMANZOR M.D.Performed By: #### RENAL, CBC #### [place] [address] USAGlucose [Mass/Vol]112 mg/dLHCA Florida Suwannee Emergency Physician GroupComment on above:Result Comment: Random Glucose Reference Range is dependent on time and content of last meal. Glucose of more than 200 mg/dL in a nonstressed, ambulatory subject supports the diagnosis of Diabetes Mellitus.Performed By: #### RENAL, CBC #### [place] [id number] [facility] 08-22-2024L Specimen: [id number] Received: 08/22/24 Status: ДМИТРИЙ Hurd Num: [id number] Spec Type: Surgical Subm Dr: Ramesh Rascon MD Tissues: A Colon Biopsy (TRANSVERSEPOLYPS) B Colon Biopsy (DESCENDING POLYPS) C Colon Biopsy (SIGMOID POLYPS) Procedures: JEFF/Julieta Harding/Srinivas L4/3 Age/ Patient Sex Location Account Attending Physician Delano Oliver 84/M [id number] Ramesh Rascon MD SPEC NUM: [id number] RECD: 08/22/24 STATUS: ДМИТРИЙ HURD NUM: [id number] [place]: 08/22/24- [facility] DR: Ramesh Rascon MD ENTERED: 08/22/[address] [facility] [address]: SPEC TYPE: Surgical DEPT: S ENTERED BY: [id number] RECV BY: [id number] ORDERED: HE/6, Gross/Micro L4/3 ORDERED: HE/6, Gross/Micro [...] submitted in a single cassette. (1, ns, [id number] A) JG B received in formalin labeled descending polyps are 5 staley-parr, focally erythematous, friable, 0.2 to 0.5 cm polypoid fragments. The specimen is entirely submitted in a single cassette. (1, ns, [id number] B) JG C. Received in formalin labeled sigmoid polyps are 4 staley-parr, focally erythematous, Specimen: [id number] Received: 08/22/24 Status: ДМИТРИЙ Hurd Num: [id number] Spec Type: Surgical Subm Dr: Ramesh Rascon MD Tissues: A Colon Biopsy (TRANSVERSEPOLYPS) B Colon Biopsy (DESCENDING POLYPS) C Colon Biopsy (SIGMOID POLYPS) Procedures: HE/6, Gross/Micro L4/3 Patient: Delano Oliver [id number] (Continued) Specimen: [id number] Received: 08/22/24 (Continued) Gross Description (Continued) Signed (signature on file) Logan Ruiz MD 08/23/24 09 Specimen: [id number] Received: 08/22/24 Status: ДМИТРИЙ Hurd Num: [id number] Spec Type: Surgical Subm Dr: Ramesh Rascon MD Tissues: A Colon Biopsy (TRANSVERSEPOLYPS) B Colon Biopsy (DESCENDING POLYPS) C Colon Biopsy (SIGMOID POLYPS) Procedures: JEFF/Mehdi, Gross/Micro L4/3 Patient: Delano Oliver [id number] (Continued) Specimen: [id number] Received: 08/22/24 (Continued) Gross Description (Continued) friable, 0.2 to 0.4 cm polypoid fragments. The specimen is entirely submitted in a single cassette. (1, ns, [id number] C) JG CPT Codes 88 305 x 3 Specimen: [id number] Received: 08/22/24 Status: ДМИТРИЙ Hurd Num: [id number] Spec Type: Surgical Subm Dr: Ramesh Rascon MD Tissues: A Colon Biopsy (TRANSVERSEPOLYPS) B Colon Biopsy (DESCENDING POLYPS) C Colon Biopsy (SIGMOID POLYPS) Procedures: HE/6, Gross/Micro L4/3 Patient: Delano Oliver Xochilt [id number] (Continued) Signed (signature on file) Logan Ruiz MD 08/23/[address] [place] [address] Physician Yolly87yx 50-13-592034Wgaz to hold Eliquis 2 days prior to colonoscopy. ThanksNormalUniversity of St. David'S Medical Center Alanine aminotransferase [Enzymatic activity/volume] in Serum or PlasmaOrdered By: Chivo Keller on 13-54-2346VCC [Catalytic activity/Vol]15 U/L7-52 [facility] HospitalAlbumin [Mass/volume] in Serum or PlasmaOrdered By: Chivo Keller on 95-37-4261Syzgxlp [Mass/Vol]3.9 g/dL2.9-4.4FMain Campus Medical CenterAlbumin [Mass/volume] in Serum or Plasma by Bromocresol green (BCG) dye binding methoOrdered By: Chivo Keller on 61-57-1543Tqfptcj BCG dye [Mass/Vol]4.4 g/dL3.5-5.7FMain Campus Medical CenterAlkaline phosphatase [Enzymatic activity/volume] in Serum or PlasmaOrdered By: Chivo Keller on 23-47-3209IUD [Catalytic activity/Vol]100 U/A59-219UqsqomcugAvita Health System Ontario HospitalAspartate aminotransferase [Enzymatic activity/volume] in Serum or PlasmaOrdered By: Chivo Keller on 82-19-1187PTT [Catalytic activity/Vol]18 U/Q76-49HmgqcngseAvita Health System Ontario HospitalBasophils Auto (Bld) [#/Vol]Ordered By: Chivo Keller on 99-63-3025Rhyeogbgz (Bld) [#/Vol]0.0 10*3/uL0.0-0.2FMain Campus Medical CenterBasophils (Bld) [#/Vol]Automated basophil count0.0-0.2FMain Campus Medical CenterBasophils/100 WBC Auto (Bld)Ordered By: Chivo Keller on 01-30-1735Gnmbcrfps/100 WBC (Bld)0.5 %. [facility] HospitalBasophils/100 WBC (Bld)Automated basophil %. [facility] HospitalBilirubin.total [Mass/volume] in Serum or PlasmaOrdered By: Chivo Keller on 43-98-5292Suwiwyczz [Mass/Vol]0.7 mg/dL 0.3-1.0[facility] HospitalCalcium [Mass/volume] in Serum or Plasma Ordered By: Chivo Keller on 88-95-9656Kvvfbjv [Mass/Vol]9.4 mg/dL8.6-10.3 [facility] HospitalCarbon dioxide, total [Moles/volume] in Serum or PlasmaOrdered By: Chivo Keller on 30-77-1042GS0 [Moles/Vol]33.2 mmol/L High21.0-31.0[facility] HospitalChloride [Moles/volume] in Serum or PlasmaOrdered By: Chivo Keller on 39-40-8553Gqbutyex [Moles/Vol]100 mmol/S64-941AmgpzwzsoAvita Health System Ontario HospitalCreatinine [Mass/volume] in Serum or PlasmaOrdered By: Chivo Keller on 16-40-5760Pmccvinmax [Mass/Vol]2.38 mg/dLHigh0.70-1.30[facility] HospitalEosinophils Auto (Bld) [#/Vol]Ordered By: Chivo Keller on 03-69-1500Plxkzqlgele (Bld) [#/Vol]0.3 10*3/uL0.0-0.45[facility] HospitalEosinophils (Bld) [#/Vol] Automated eosinophil count0.0-0.45[facility] Eosinophils/100 WBC Auto (Bld)Ordered By: Chivo Keller on 02-22-2024 Eosinophils/100 WBC (Bld)3.8 %.[facility] HospitalEosinophils/100 WBC (Bld)Automated eosinophil %.[facility] HospitalErythrocyte distribution width Auto (RBC) [Ratio]Ordered By: Chivo Keller on 02-22-2024 Erythrocyte distribution width (RBC) [Ratio]14.6 %12.0-14.8[facility] HospitalErythrocyte distribution width (RBC) [Ratio]Erythrocyte distribution width [Ratio] by Automated count12.0-14.8[facility] HospitalFerritin [Mass/volume] in Serum or PlasmaOrdered By: Chivo Keller on 85-18-4322Stjmznlp [Mass/Vol]236.8 ng/mL23.9-336.2FMain Campus Medical CenterFolate [Mass/volume] in Serum or PlasmaOrdered By: Chivo Keller on 91-41-8710Oevvsm [Mass/Vol]36.0 ng/mL>5.9[facility] Comment on above:Folate reference range: >5.9 ng/mlThe WHO technical consultation on folate and vitamin i66njqruovkjwxg has determined that folate concentrations lessthan 4 ng/ml are considered deficient.Globulin Calc (S) [Mass/Vol]Ordered By: Chivo Keller on 06-03-3055Ygluxhqz (S) [Mass/Vol]3.0 g/dLAvita Health System Ontario HospitalGlucose [Mass/volume] in Serum or Plasma Ordered By: Chivo Keller on 59-89-1877Lxjncgc [Mass/Vol]129 mg/vCRibx30-123 [facility] HospitalComment on above:ADA recommended reference rangeRandom Glucose Reference Range is dependent on time and content of last meal. Glucose of more than 200 mg/dL in a nonstressed, ambulatory subject supports the diagnosisof Diabetes Mellitus.Hematocrit Auto (Bld) [Volume fraction]Ordered By: Chivo Keller on 86-19-5352Utiyghwmyu (Bld) [Volume fraction]38.1 %Low38.8-50.0[facility] HospitalHematocrit (Bld) [Volume fraction]Hematocrit [Volume Fraction] of Blood by Automated countLow 38.8-50.0[facility] HospitalHemoglobin [Mass/volume] in Blood Ordered By: hCivo Keller on 46-78-7554Bdiubuvzck (Bld) [Mass/Vol]12.9 g/dL Low13.0-17.0[facility] HospitalHemoglobin (Bld) [Mass/Vol] Hemoglobin [Mass/volume] in DbsdzFtu16.0-17.0[facility] IgA [Mass/volume] in Serum or PlasmaOrdered By: Chivo Keller on 02-22-2024 IgA [Mass/Vol]179 mg/dC86-496JiudlqxpbAvita Health System Ontario HospitalIgG [Mass/volume] in Serum or PlasmaOrdered By: Chivo Keller on 56-94-4873KzB [Mass/Vol]987 mg/nO394-0368MoajdprntAvita Health System Ontario HospitalIgM [Mass/volume] in Serum or PlasmaOrdered By: Chivo Keller on 22-59-9838UnT [Mass/Vol]143 mg/eV23-812 [facility] HospitalComment on above:Performed at: [employer] [place] [id number] Director: Nathan Munoz PhD, Phone: [phone] light chains.kappa.free [Mass/volume] in Serum Ordered By: Chivo Keller on 81-93-0888Hfbcrfhsfwrwfs light chains.kappa.free (S) [Mass/Vol]56.1 mg/LHigh3.3-19.4FMain Campus Medical CenterImmunoglobulin light chains.kappa.free/Immunoglobulin light chains.lambda.free [MassOrdered By: Chivo Keller on 02-22-2024 Immunoglobulin light chains.kappa.free/Immunoglobulin light chains.lambda.free (S) [Mass ratio]1.510.26-1.65[facility] HospitalComment on above: Performed at: [employer] [place], [place] [id number] Director: Nathan Munoz PhD, Phone: [phone] light chains.lambda.free [Mass/volume] in Serum or PlasmaOrdered By: Chivo Keller on 00-21-5299Iszwuxppxgtnxq light chains.lambda.free [Mass/Vol]37.2 mg/LHigh 5.7-26.3FMain Campus Medical CenterIron [Mass/volume] in Serum or Plasma Ordered By: Chivo Keller on 42-80-8201Jhvv [Mass/Vol]85 ug/fX55-725 [facility] HospitalIron binding capacity [Mass/volume] in Serum or PlasmaOrdered By: Chivo Keller on 27-39-7003Send binding capacity [Mass/Vol]281 ug/cR012-339ZwfsbqpikAvita Health System Ontario HospitalIron saturation [Mass Fraction] in Serum or PlasmaOrdered By: Chivo Keller on 77-03-3618Bqqg saturation [Mass fraction]30.2 %20-50[facility] HospitalLeukocytes [#/volume] corrected for nucleated erythrocytes in Blood by Automated coun Ordered By: Chivo Keller on 77-60-3296JKK corrected for nucl RBC Auto (Bld) [#/Vol]7.5 10*3/uL4.1-10.5FMain Campus Medical CenterWBC corrected for nucl RBC Auto (Bld) [#/Vol]Leukocytes [#/volume] corrected for nucleated erythrocytes in Blood by Automated coun4.1-10.5FMain Campus Medical Center Lymphocytes Auto (Bld) [#/Vol]Ordered By: Chivo Keller on 02-22-2024 Lymphocytes (Bld) [#/Vol]1.4 10*3/uL1.00-4.8[facility] Lymphocytes (Bld) [#/Vol]Lymphocytes [#/volume] in Blood by Automated count 1.00-4.8[facility] HospitalLymphocytes/100 WBC Auto (Bld)Ordered By: Chivo Keller on 98-48-4641Rukgovfiuet/100 WBC (Bld)19.1 %.[facility] HospitalLymphocytes/100 WBC (Bld)Lymphocytes/100 leukocytes in Blood by Automated count.[facility] Auto (RBC) [Entitic mass]Ordered By: Chivo Keller on 77-18-7096FNX (RBC) [Entitic mass]31.6 pg27.5-35.2FSt. Vincent HospitalH (RBC) [Entitic mass] MCH [Entitic mass] by Automated count27.5-35.2FMain Campus Medical Center MCHC Auto (RBC) [Mass/Vol]Ordered By: Chivo Keller on 25-48-5551TTXR (RBC) [Mass/Vol]33.9 g/dL32.5-35.6FSt. Vincent HospitalHC (RBC) [Mass/Vol]MCHC [Mass/volume] by Automated count32.5-35.6FMain Campus Medical CenterMCV Auto (RBC) [Entitic vol]Ordered By: Chivo Keller on 92-16-4283QYQ (RBC) [Entitic vol]93.2 fL83.5-101[facility] Warren HospitalV (RBC) [Entitic vol]MCV [Entitic volume] by Automated count83.5-101 [facility] HospitalMonocytes Auto (Bld) [#/Vol]Ordered By: Chivo Keller on 80-05-1182Lfuziysjd (Bld) [#/Vol]0.8 10*3/uL0.0-0.8[facility] HospitalMonocytes (Bld) [#/Vol]Automated blood monocyte count 0.0-0.8[facility] HospitalMonocytes/100 WBC Auto (Bld)Ordered By: Chivo Keller on 01-70-3767Hpyxtiodq/100 WBC (Bld)10.0 %.[facility] HospitalMonocytes/100 WBC (Bld)Automated monocyte %.[facility] HospitalNeutrophils Auto (Bld) [#/Vol]Ordered By: Chivo Keller on 22-53-5389Pqpbxofuain (Bld) [#/Vol]5.0 10*3/uL1.8-7.7FMain Campus Medical CenterNeutrophils (Bld) [#/Vol]Neutrophils [#/volume] in Blood by Automated count1.8-7.7FMain Campus Medical CenterNeutrophils/100 WBC Auto (Bld) Ordered By: Chivo Keller on 37-46-0476Vafszwardzk/100 WBC (Bld)66.6 %. [facility] HospitalNeutrophils/100 WBC (Bld)Automated neutrophil % .[facility] HospitalNo Panel InformationOrdered By: Chivo Keller on 60-54-3629Gktnqbw Electrophoresis M-SpikeNot observed g/dLNot ObservedAvita Health System Ontario HospitalProtein Electrophoresis NoteSee comment .[facility] HospitalComment on above:Protein electrophoresis scan will follow via computer,mail, or flower machine operator delivery.Performed at: [facility] [place] [id number] Director: Nathan Munoz PhD, Phone: [phone] ImmunofixationSee comment.[facility] HospitalComment on above:No monoclonality detected.Not observed g/dLNot Observed [facility] HospitalEstimated GFR (CKD-EPI)26.711 mL/MinAvita Health System Ontario HospitalPharmacy Creatinine Clearance (Chem29.06[facility] HospitalNucleated erythrocytes [Presence] in Blood by Automated countOrdered By: Chivo Keller on 68-07-4668Wctyfmznt RBC Auto Ql (Bld)0.0 /100{WBC}0-0.5FMain Campus Medical CenterNucleated RBC Auto Ql (Bld) Nucleated erythrocytes [Presence] in Blood by Automated count0-0.5FMain Campus Medical CenterPlatelet mean volume Auto (Bld) [Entitic vol]Ordered By: Chivo Keller on 49-68-7381Xmoaodkl mean volume (Bld) [Entitic vol]7.6 fL 6.6-10.1FMain Campus Medical CenterPlatelet mean volume (Bld) [Entitic vol]Platelet mean volume [Entitic volume] in Blood by Automated count6.6-10.1 [facility] HospitalPlatelets Auto (Bld) [#/Vol]Ordered By: Chivo Keller on 51-37-1739Dgaripmnm (Bld) [#/Vol]196 10*3/gT024-988VffykqjpzAvita Health System Ontario HospitalPlatelets (Bld) [#/Vol]Platelets [#/volume] in Blood by Automated wjgye234-643JwwqjmvufAvita Health System Ontario HospitalPotassium [Moles/volume] in Serum or PlasmaOrdered By: Chivo Keller on 68-92-0026Qjxjrxblv [Moles/Vol]3.8 mmol/L3.5-5.1FMain Campus Medical CenterProtein [Mass/volume] in Serum or PlasmaOrdered By: Chivo Keller on 02-22-2024 Protein [Mass/Vol]6.8 g/dL6.0-8.5FMain Campus Medical CenterProtein [Mass/Vol]7.4 g/dL6.4-8.9[facility] HospitalRB Auto (Bld) [#/Vol] Ordered By: Chivo Keller on 50-95-6846AIW (Bld) [#/Vol]4.09 10*6/uL 3.90-5.60[facility] HospitalRBC (Bld) [#/Vol]Erythrocytes [#/volume] in Blood by Automated count3.90-5.60[facility] Serum free kappa light chain measurementOrdered By: Chivo Keller on 04-94-1013Kzfzotkhsvadbq light chains.kappa.free (S) [Mass/Vol]Immunoglobulin light chains.kappa.free [Mass/volume] in SerumHigh3.3-19.4FCleveland Clinic Marymount Hospitalerum globulin measurement (mass/volume)Ordered By: Chivo Keller on 02-32-3485Xbofjcxg (S) [Mass/Vol]2.9 g/dL2.2-3.9[facility] HospitalGlobulin (S) [Mass/Vol]Serum globulin measurement (mass/volume) 2.2-3.9[facility] Hospitalerum immunofixation electrophoresis Ordered By: Chivo Keller on 13-16-7358Vygpc immunofixation electrophoresis See comment.[facility] Hospitalerum immunoglobulin free kappa light chains/immunoglobulin free lambda light chainsOrdered By: Chivo Keller on 36-79-2062Ekknlyfkfvomou light chains.kappa.free/Immunoglobulin light chains.lambda.free (S) [Mass ratio]Immunoglobulin light chains.kappa.free/Immunoglobulin light chains.lambda.free [Mass0.26-1.65 [facility] Hospitalerum or plasma IgA measurement (mass/volume) Ordered By: Chivo Keller on 53-34-0734CuE [Mass/Vol]IgA [Mass/volume] in Serum or Xiypvm88-472ZrxupnfrhEast Ohio Regional Hospitalerum or plasma IgG measurement (mass/volume)Ordered By: Chivo Keller on 95-50-9919NwZ [Mass/Vol]IgG [Mass/volume] in Serum or Ekgrpg370-9496FddxyucrcEast Ohio Regional Hospitalerum or plasma IgM measurement (mass/volume)Ordered By: Chivo Keller on 20-14-8207WfN [Mass/Vol]IgM [Mass/volume] in Serum or Yfmbqz00-275 [facility] Hospitalerum or plasma albumin measurement (mass/volume)Ordered By: Chivo Keller on 20-24-0609Gkhidir [Mass/Vol] Albumin [Mass/volume] in Serum or Plasma2.9-4.4FMain Campus Medical Center Serum or plasma albumin/globulin mass ratioOrdered By: Chivo Keller on 50-10-0316Dhzerrp/Globulin [Mass ratio]1.3 {ratio}0.7-1.7FMain Campus Medical CenterAlbumin/Globulin [Mass ratio]Serum or plasma albumin/globulin mass ratio0.7-1.7FMain Campus Medical CenterAlbumin/Globulin [Mass ratio]1.5 {ratio}[facility] Hospitalerum or plasma alpha 1 globulin measurement by electrophoresis (mass/volume)Ordered By: Chivo Keller on 62-15-9284Awsqd 1 globulin Elph [Mass/Vol]0.2 g/dL0.0-0.4FMain Campus Medical CenterAlpha 1 globulin Elph [Mass/Vol]Serum or plasma alpha 1 globulin measurement by electrophoresis (mass/volume)0.0-0.4FCleveland Clinic Marymount Hospitalerum or plasma alpha 2 globulin measurement by electrophoresis (mass/volume)Ordered By: Chivo Keller on 38-57-6058Aprev 2 globulin Elph [Mass/Vol]0.8 g/dL0.4-1.0[facility] HospitalAlpha 2 globulin Elph [Mass/Vol]Serum or plasma alpha 2 globulin measurement by electrophoresis (mass/volume)0.4-1.0[facility] Hospitalerum or plasma anion gap determinationOrdered By: Chivo Keller on 34-48-5504Wpidl gap [Moles/Vol] 10.6 mmol/L6.0-15.0[facility] Hospitalerum or plasma beta globulin measurement by electrophoresis (mass/volume)Ordered By: Chivo Keller on 75-78-9880Xilz globulin Elph [Mass/Vol]0.9 g/dL0.7-1.3FMain Campus Medical CenterBeta globulin Elph [Mass/Vol]Serum or plasma beta globulin measurement by electrophoresis (mass/volume)0.7-1.3FCleveland Clinic Marymount Hospitalerum or plasma gamma globulin measurement by electrophoresis (mass/volume)Ordered By: Chivo Keller on 65-55-0404Cnomm globulin Elph [Mass/Vol]1.0 g/dL0.4-1.8[facility] HospitalGamma globulin Elph [Mass/Vol]Serum or plasma gamma globulin measurement by electrophoresis (mass/volume)0.4-1.8[facility] Hospitalerum or plasma immunoglobulin free lambda light chains measurement (mass/volume)Ordered By: Chivo Keller on 39-91-3875Sqtykyulknoaky light chains.lambda.free [Mass/Vol]Immunoglobulin light chains.lambda.free [Mass/volume] in Serum or PlasmaHigh5.7-26.3FCleveland Clinic Marymount Hospitalerum total protein measurementOrdered By: Chivo Keller on 89-59-0309Nkxnmyd [Mass/Vol]Protein [Mass/volume] in Serum or Plasma6.0-8.5FCleveland Clinic Marymount Hospitalodium [Moles/volume] in Serum or PlasmaOrdered By: Chivo Keller on 02-22-2024 Sodium [Moles/Vol]140 mmol/K921-798AknswvoxjAvita Health System Ontario HospitalTransferrin [Mass/volume] in Serum or PlasmaOrdered By: Chivo Keller on 02-22-2024 Transferrin [Mass/Vol]201 mg/sHXey604-205IxgvwccsnAvita Health System Ontario HospitalUrea nitrogen [Mass/volume] in Serum or PlasmaOrdered By: Chivo Keller on 83-03-3647Zeuo nitrogen [Mass/Vol]59 mg/dLHigh7-25[facility] HospitalVitamin B12 ser/plasOrdered By: Chivo Keller on 05-68-3344Qwrjkualp (Vitamin B12) [Mass/Vol]649 pg/xR726-971FaetgmtnnAvita Health System Ontario HospitalWBC Auto (Bld) [#/Vol]Ordered By: Chivo Keller on 97-11-7595YIG (Bld) [#/Vol] 7.5 10*3/uL4.1-10.5FMain Campus Medical CenterWBC (Bld) [#/Vol]Leukocytes [#/volume] in Blood by Automated count4.1-10.5FMain Campus Medical Center Automated urine specific gravity by refractometryon 13-48-9417Bgyvcgoz gravity Refractometry automated (U) [Rel density]1.0101.005-1.025[facility] HospitalBilirubin Auto test strip (U) [Mass/Vol]on 92-74-7573Deaufmykp (U) [Mass/Vol]NegativeNEGATIVEAvita Health System Ontario HospitalColor Auto (U)on 93-27-0003Enclm (U)LT. YELLOWYELLOWAvita Health System Ontario HospitalErythrocyte distribution width Auto (RBC) [Ratio]on 34-77-8555Cizwnxrnavs distribution width (RBC) [Ratio]13.5 %11.0-15.0[facility] HospitalEstimated glomerular filtration rate (GFR) non- Americanon 26-32-4998ZHL/1.73 sq M.predicted among non-blacks MDRD (S/P/Bld) [Vol rate/Area]23 mL/min/{1.73_m2} Low>=60[facility] HospitalGlucose [Mass/volume] in Urine by Test stripon 58-92-8374Ttwflgy Test strip (U) [Mass/Vol]NegativeNEGATIVEAvita Health System Ontario HospitalHematocrit Auto (Bld) [Volume fraction]on 02-01-2024 Hematocrit (Bld) [Volume fraction]37.0 %Low42.0-54.0[facility] HospitalHemoglobin [Mass/volume] in Bloodon 23-46-4878Kxppiknros (Bld) [Mass/Vol] 11.9 g/dLLow14.0-18.0[facility] HospitalKetones Auto test strip (U) [Mass/Vol]on 94-27-6003Mkivpvx (U) [Mass/Vol]NegativeNEGATIVEAvita Health System Ontario HospitalLaboratory - Chemistry and Chemistry - challengeon 47-91-5951Scvoyfy [Mass/Vol]9.1 mg/dL8.5-10.1FMain Campus Medical Center Chloride [Moles/Vol]101 mmol/W24-666GbtrmbekhAvita Health System Ontario HospitalCO2 [Moles/Vol]31.5 mmol/L21.0-32.0[facility] HospitalCreatinine [Mass/Vol]2.66 mg/dLHigh0.70-1.30[facility] HospitalFree T4 [Mass/Vol]1.03 ng/dL0.76-1.46[facility] HospitalGFR/1.73 sq M.predicted MDRD (S/P/Bld) [Vol rate/Area]28 mL/min/{1.73_m2}Low>=60[facility] HospitalGlucose [Mass/Vol]128 mg/aJCjux19-030OjvfqsdkkAvita Health System Ontario HospitalMagnesium [Mass/Vol]2.4 mg/dL1.8-2.4FMain Campus Medical CenterPotassium [Moles/Vol]3.8 mmol/L3.5-5.1FMain Campus Medical Center Sodium [Moles/Vol]141 mmol/W783-662LtgytlvmjAvita Health System Ontario HospitalTSH Qn8.924 m[IU]/LHigh0.358-3.740[facility] HospitalUrea nitrogen [Mass/Vol] 55.0 mg/dLHigh7.0-18.0[facility] HospitalUrea nitrogen/Creatinine [Mass ratio]20.7 mg/mgAvita Health System Ontario HospitalLaboratory - Urinalysison 35-81-2330Kkjcjsp (U) [Mass/Vol]25.1 mg/dLHigh<=11.9[facility] HospitalLeukocytes [#/volume] corrected for nucleated erythrocytes in Blood by Automated counon 02-38-0288EYO corrected for nucl RBC Auto (Bld) [#/Vol]8.0 10 3/uL4.0-11.0[facility] Auto (RBC) [Entitic mass]on 60-44-1538LQS (RBC) [Entitic mass]30.9 pg25.9-34.0[facility] HospitalMCHC Auto (RBC) [Mass/Vol]on 05-27-3183XPHH (RBC) [Mass/Vol]32.2 g/dL 29.9-35.2FMain Campus Medical CenterMCV Auto (RBC) [Entitic vol]on 31-06-4366IHI (RBC) [Entitic vol]96.1 aAOzqz18.0-94.0[facility] HospitalNo Panel Informationon 697495-Quqmwqq Vitamin D Total94.2 ng/mL [facility] HospitalComment on above:<20 ng/mL Vit D eiwrbqojb41- <30 ng/mL Vit D fywargkoibco72-297 ng/mL Vit D sufficient>100 ng/mL Potential ToxicityParathyroid Hormone (Intact)52 pg/qJ75-91ZpzmcfelaAvita Health System Ontario HospitalComment on above:Performed at: [id number] [place], [place] [id number] Director: Nathan Munoz PhD, Phone: [phone] Phosphorus Level4.1 mg/dL2.6-4.7FMain Campus Medical CenterProstate Specific Antigen Screen0.91 ng/mL<=4.00[facility] HospitalTotal Ddcnxwdplrkfzgsu93 ng/aP52-665ShfvhsgrjAvita Health System Ontario HospitalComment on above: Performed at: [id number] [place], [place] [id number] Director: Nathan Munoz PhD, Phone: [phone] Random Pzfxwbpfmz11.24 mg/dL20.00-300.00[facility] HospitalPlatelet mean volume Auto (Bld) [Entitic vol]on 43-81-2891Dwmjjese mean volume (Bld) [Entitic vol]9.5 fL 9.5-13.5FMain Campus Medical CenterPlatelets Auto (Bld) [#/Vol]on 15-30-9700Mmyfmoqfo (Bld) [#/Vol]199 10 3/vM915-755RueohqktsAvita Health System Ontario HospitalProtein Auto test strip (U) [Mass/Vol]on 42-38-8724Jftesrs (U) [Mass/Vol] TRACE mg/dLNEG/TRACEAvita Health System Ontario HospitalRBC Auto (Bld) [#/Vol]on 55-24-5379KDN (Bld) [#/Vol]3.85 10 6/uLLow4.70-6.10[facility] Hospitalerum or plasma anion gap determinationon 40-65-0245Civnw gap [Moles/Vol] 12.3 mmol/LFCleveland Clinic Marymount Hospitalpecific gravity Auto test strip (U) [Rel density]on 71-37-3252Bucmkejk gravity (U) [Rel density]CLEARCLEARFMain Campus Medical CenterUrine hemoglobin detection by automated test stripon 38-62-0772Lksuqbfukr Auto test strip Ql (U)NegativeNEGHolzer Health SystemUrine nitrite detection by automated test stripon 02-01-2024 Nitrite Auto test strip Ql (U)SMALLAbnormalNEGATIVEAvita Health System Ontario HospitalNitrite Auto test strip Ql (U)NegativeNEGHolzer Health SystemUrine protein/creatinine ratioon 32-31-4423Ypgfcua/Creatinine (U) [Ratio] 0.32[facility] HospitalUrobilinogen Auto test strip (U) [Mass/Vol] on 98-77-9911Ybyqueosbrgw Qn (U)0.2 {Jagruti'U}/dL0.2-1.0[facility] HospitalpH Auto test strip (U)on 43-65-0714rT (U)6.0 [pH]5.0-9.0[facility] HospitalCholesterol in LDL Calc [Mass/Vol]on 12-19-2023 Cholesterol in LDL [Mass/Vol]81.8 mg/dLAvita Health System Ontario HospitalComment on above:<100 mg/dl VCKEBUX101-005 mg/dl NEAR OR ABOVE IGSTMDW073-735 mg/dl BORDERLINE IYGE220-287 mg/dl HIGH>190 mg/dl VERY HIGHCholesterol in VLDL Calc [Mass/Vol]on 87-65-9087Ractzylvjye in VLDL [Mass/Vol]23.2 mg/dLAvita Health System Ontario HospitalGlucose mean value [Mass/volume] in Blood Estimated from glycated hemoglobinon 72-88-8698Ygujtpk glucose Estimated from glycated hemoglobin (Bld) [Mass/Vol]137 mg/dLAvita Health System Ontario HospitalLaboratory - Chemistry and Chemistry - challengeon 36-35-8634Aiernwaubtu [Mass/Vol]148 mg/dL<=200[facility] HospitalCholesterol in HDL [Mass/Vol]43 mg/dL 40-60[facility] HospitalComment on above:> or =60 mg/dl - LOW CARDIOVASCULAR RISK<40 mg/dl - HIGH CARDIOVASCULAR RISKFree T4 [Mass/Vol]1.04 ng/dL0.76-1.46[facility] HospitalTriglyceride [Mass/Vol]116 mg/dL <=150[facility] HospitalTSH Qn11.812 m[IU]/L0.358-3.740[facility] HospitalLaboratory - Hematology and Cell countson 54-68-1001AaU6x (Bld) [Mass fraction]6.4 %4.5-6.2FMain Campus Medical CenterComment on above:ADA RECOMMENDED LIMIT 4.0 - 6.0ADA THERAPEUTIC TARGET < 7.0ACTION SUGGESTED> 7.0Serum or plasma total cholesterol/high density lipoprotein (HDL) cholesterol mass ernesto 86-47-2590Bmkdhpcyaha.total/Cholesterol in HDL [Mass ratio]3.4 {ratio}[facility] HospitalComment on above:3.3 - 4.4 LOW RISK4.4 - 7.1 AVERAGE RISK7.1 - 11.0 MODERATE RISK>11.0 HIGH RISKAlanine aminotransferase [Enzymatic activity/volume] in Serum or PlasmaOrdered By: Leigha Nelson on 42-98-6183ARK [Catalytic activity/Vol]20 U/L7-52[facility] HospitalAlbumin [Mass/volume] in Serum or Plasma by Bromocresol green (BCG) dye binding methoOrdered By: Leigha Nelson on 53-13-3243Musjtak BCG dye [Mass/Vol]4.4 g/dL3.5-5.7FMain Campus Medical CenterAlkaline phosphatase [Enzymatic activity/volume] in Serum or PlasmaOrdered By: Leigha Nelson on 10-59-0022NPD [Catalytic activity/Vol]114 U/A20-453OwrcotxxaAvita Health System Ontario HospitalAspartate aminotransferase [Enzymatic activity/volume] in Serum or Plasma Ordered By: Leigha Omar on 50-29-8015SOH [Catalytic activity/Vol]23 U/L13-39 [facility] HospitalBasophils Auto (Bld) [#/Vol]Ordered By: Leigha Omar on 24-15-4101Umtgiektg (Bld) [#/Vol]0.0 10*3/uL0.0-0.2FMain Campus Medical CenterBasophils/100 WBC Auto (Bld)Ordered By: Leigha Omar on 42-77-1604Bhhzkmedf/100 WBC (Bld)0.5 %.[facility] Bilirubin.total [Mass/volume] in Serum or PlasmaOrdered By: Leigha Omar on 73-71-8958Zjwnvhkqj [Mass/Vol]0.8 mg/dL0.3-1.0[facility] Calcium [Mass/volume] in Serum or PlasmaOrdered By: Leigha Nelson on 08-30-2023 Calcium [Mass/Vol]9.7 mg/dL8.6-10.3FMain Campus Medical CenterCarbon dioxide, total [Moles/volume] in Serum or PlasmaOrdered By: Leigha Omar on 33-03-3434LH1 [Moles/Vol]35.5 mmol/L21.0-31.0[facility] Chloride [Moles/volume] in Serum or PlasmaOrdered By: Leigha Omar 21-86-3677Opmnaerj [Moles/Vol]102 mmol/J17-502DasnalqyqAvita Health System [facility] Hospital Creatinine [Mass/volume] in Serum or PlasmaOrdered By: Leigha Omar on 48-92-8545Fjissghuws [Mass/Vol]2.29 mg/dL0.70-1.30[facility] HospitalEosinophils Auto (Bld) [#/Vol]Ordered By: Leigha Omar on 08-30-2023 Eosinophils (Bld) [#/Vol]0.3 10*3/uL0.0-0.45[facility] Eosinophils/100 WBC Auto (Bld)Ordered By: Leigha Nelson on 08-30-2023 Eosinophils/100 WBC (Bld)3.8 %.[facility] HospitalErythrocyte distribution width Auto (RBC) [Ratio]Ordered By: Leigha Omar on 08-30-2023 Erythrocyte distribution width (RBC) [Ratio]14.8 %12.0-14.8[facility] HospitalFerritin [Mass/volume] in Serum or PlasmaOrdered By: Leigha Nelson on 74-75-1374Ydklwyap [Mass/Vol]239.3 ng/mL23.9-336.2FMain Campus Medical CenterGlobulin Calc (S) [Mass/Vol]Ordered By: Leigha Nelson on 08-30-2023 Globulin (S) [Mass/Vol]2.5 g/dLAvita Health System Ontario HospitalGlucose [Mass/volume] in Serum or PlasmaOrdered By: Leigha Nelson on 61-73-8926Czpisnm [Mass/Vol]111 mg/yW62-173AnvxxidvvAvita Health System Ontario HospitalComment on above:ADA recommended reference rangeRandom Glucose Reference Range is dependent on time and content of last meal. Glucose of more than 200 mg/dL in a nonstressed, ambulatory subject supports the diagnosisof Diabetes Mellitus.Hematocrit Auto (Bld) [Volume fraction]Ordered By: Leigha Nelson 83-91-8430Taaeppaksb (Bld) [Volume fraction]36.8 %38.8-50.0[facility] HospitalHemoglobin [Mass/volume] in BloodOrdered By: Leigha Nelson 64-14-2392Comlpbfruo (Bld) [Mass/Vol]12.3 g/dL13.0-17.0[facility] HospitalIron [Mass/volume] in Serum or PlasmaOrdered By: Leigha Nelson 05-82-1361Ptlk [Mass/Vol]84 ug/dL 50-212[facility] HospitalIron binding capacity [Mass/volume] in Serum or PlasmaOrdered By: Leigha Nelson 19-09-9416Tfyh binding capacity [Mass/Vol]290 ug/yX942-913OezkwnlfeAvita Health System Ontario HospitalIron saturation [Mass Fraction] in Serum or PlasmaOrdered By: Leigha Nelson 96-91-0717Gqpy saturation [Mass fraction]29.0 %20-50[facility] HospitalLeukocytes [#/volume] corrected for nucleated erythrocytes in Blood by Automated coun Ordered By: Leigha Omar on 10-85-3983ICF corrected for nucl RBC Auto (Bld) [#/Vol]7.0 10*3/uL4.1-10.5FMain Campus Medical CenterLymphocytes Auto (Bld) [#/Vol]Ordered By: Leigha Omar on 08-35-6807Dvkngjfevfa (Bld) [#/Vol]1.5 10*3/uL1.00-4.8[facility] HospitalLymphocytes/100 WBC Auto (Bld) Ordered By: Leigha Omar on 36-93-8355Mdzismevyws/100 WBC (Bld)21.9 %.[facility] HospitalH Auto (RBC) [Entitic mass]Ordered By: Leigha Omar on 50-83-9998RTU (RBC) [Entitic mass]30.9 pg27.5-35.2FMain Campus Medical CenterMCHC Auto (RBC) [Mass/Vol]Ordered By: Leigha Omar on 44-52-1673MPTY (RBC) [Mass/Vol]33.3 g/dL32.5-35.6FMain Campus Medical CenterMCV Auto (RBC) [Entitic vol]Ordered By: Leigha Omar on 21-70-7036GJM (RBC) [Entitic vol]92.8 fL83.5-101[facility] HospitalMonocytes Auto (Bld) [#/Vol] Ordered By: Leigha Omar on 29-27-7007Scaqxnchf (Bld) [#/Vol]0.5 10*3/uL0.0-0.8 [facility] HospitalMonocytes/100 WBC Auto (Bld)Ordered By: Leigha Omar on 62-49-6496Keuvvuxtc/100 WBC (Bld)7.9 %.[facility] HospitalNeutrophils Auto (Bld) [#/Vol]Ordered By: Leigha Nelson on 08-30-2023 Neutrophils (Bld) [#/Vol]4.6 10*3/uL1.8-7.7FMain Campus Medical Center Neutrophils/100 WBC Auto (Bld)Ordered By: Leigha Nelson on 08-30-2023 Neutrophils/100 WBC (Bld)65.9 %.[facility] HospitalNo Panel InformationOrdered By: Leigha Omar on 04-88-8916Xtkzvadgg GFR (CKD-EPI)27.976 mL/MinAvita Health System Ontario HospitalPharmacy Creatinine Clearance (Chem30.81 [facility] HospitalNucleated erythrocytes [Presence] in Blood by Automated countOrdered By: Leigha Nelson on 27-88-3809Ntcltqyoz RBC Auto Ql (Bld)0.1 /100{WBC}0-0.5FMain Campus Medical CenterPlatelet mean volume Auto (Bld) [Entitic vol]Ordered By: Leigha Nelson on 81-02-4892Xidpaxli mean volume (Bld) [Entitic vol]7.6 fL6.6-10.1FMain Campus Medical Center Platelets Auto (Bld) [#/Vol]Ordered By: Leigha Nelson on 56-57-2583Giexgztom (Bld) [#/Vol]206 10*3/aT175-148WgaopnbhjAvita Health System Ontario HospitalPotassium [Moles/volume] in Serum or PlasmaOrdered By: Leigha Nelson on 08-30-2023 Potassium [Moles/Vol]4.5 mmol/L3.5-5.1FMain Campus Medical CenterProtein [Mass/volume] in Serum or PlasmaOrdered By: Leigha Nelson on 67-90-0068Gnefkbv [Mass/Vol]6.9 g/dL6.4-8.9[facility] HospitalRBC Auto (Bld) [#/Vol] Ordered By: Leigha Nelson on 46-20-0233MYV (Bld) [#/Vol]3.96 10*6/uL3.90-5.60 [facility] Hospitalerum or plasma albumin/globulin mass ratio Ordered By: Leigha Nelson on 39-77-5772Wobazct/Globulin [Mass ratio]1.8 {ratio} [facility] Hospitalerum or plasma anion gap determinationOrdered By: Leigha Nelson on 22-69-5947Ifsjr gap [Moles/Vol]10.0 mmol/L6.0-15.0[facility] Hospitalerum or plasma carcinoembryonic antigen measurement (mass/volume)Ordered By: Leigha Nelson on 33-38-2408Lqganxnxukomrary Ag [Mass/Vol]2.1 ng/mL0.0-3.0[facility] Hospitalodium [Moles/volume] in Serum or PlasmaOrdered By: Leigha Nelson on 53-74-0154Auhmda [Moles/Vol]143 mmol/G415-128CnawvrvyoAvita Health System Ontario HospitalTransferrin [Mass/volume] in Serum or PlasmaOrdered By: Leigha Nelson on 98-63-4027Ftstmpfnbrm [Mass/Vol]207 mg/dL 203-362[facility] HospitalUrea nitrogen [Mass/volume] in Serum or PlasmaOrdered By: Leigha Nelson on 09-31-3229Bscr nitrogen [Mass/Vol]51 mg/dL 7-25[facility] HospitalWBC Auto (Bld) [#/Vol]Ordered By: Leigha Nelson on 56-53-3231UMO (Bld) [#/Vol]7.0 10*3/uL4.1-10.5FMain Campus Medical CenterECHOCARDIO M/2D COMPLETEon 85-70-9722UQXJULADQP M/2D COMPLETE Patient: DELANO OLIVER Exam Date: 02/28/2023 : 1940 Gender:M Ordering : MRS. MADDI 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 Admission #: [id number] Family : DR YAS LINDA D.O. Order #: [id number] CLICK HERE TO VIEW EXAM ECHOCARDIOGRAM REPORT [...] by: Adan Ortiz M.D. on 02/28/2023 at 20:26[facility] HospitalT3, TOTAL (TRIIODOTHYRONINE)on 25-64-1287U3, TOTAL83 ng/lQMfuckf28-758 [facility] CenterComment on above:Performed By: #### FT4, PSASC #### [facility] [address] [place] [address] Dr. Benito Linton T4on 69-45-3825Hqgk T4 [Mass/Vol]1.03 ng/dLNormal0.76-1.46 [facility] CenterComment on above:Performed By: #### FT4 #### [facility] [address] [place] [address] Dr. Benito SchwartzLIPID PROFILEon 18-65-6378VLGX-HDL RATIO NORMSEE [facility]rick HospitalComment on above:Result Comment: 3.3 - 4.4 LOW RISK 4.4 - 7.1 AVERAGE RISK 7.1 - 11.0 MODERATE RISK >11.0 HIGH RISKPerformed By: #### TSH, FT3, BMP #### [facility] [address] [address] [address] Benito SchwartzCholesterol [Mass/Vol]164 mg/dLNormal<=200The [facility] Comment on above:Performed By: #### TSH, FT3, BMP #### [facility] [address] [address] [address] Benito SchwartzCholesterol in HDL [Mass/Vol]41 mg/kKNexrbs76-18Vbh [facility] HospitalComment on above:Performed By: #### TSH, FT3, BMP #### [facility] [address] [address] [address] Benito Burgeresterol in LDL [Mass/Vol]104.2 mg/dLMercy Health St. Anne HospitalComthree rivers health hospital on above:Performed By: #### TSH, FT3, BMP #### [facility] [address] [address] [address] Benito Calvo.total/Cholesterol in HDL [Mass ratio]4.0 {ratio} NormalAdena Fayette Medical CenterComthree rivers health hospital on above:Performed By: #### TSH, FT3, BMP #### [facility] [address] [place] [address] Dr. Benito Johnson NORMAL> or = 60 mg/dl - LOW CARDIOVASCULAR RISK <40 mg/dl - HIGH CARDIOVASCULAR RISKNoSelect Medical Specialty Hospital - Cleveland-FairhillComment on above:Performed By: #### TSH, FT3, BMP #### [facility] [address] [place] [address] Dr. Benito Sharma CALC NORMALSEE BELOWMercy Health St. Anne HospitalComment on above:Result Comment: <100 mg/dl OPTIMAL 100 - 129 mg/dl NEAR OR ABOVE OPTIMAL 130 - 159 mg/dl BORDERLINE HIGH 160 - 189 mg/dl HIGH >190 mg/dl VERY HIGH Performed By: #### TSH, FT3, BMP #### [facility] [address] [address] [address] Benito SchwartzTriglyceride [Mass/Vol]94 mg/dLNormal<=150[facility] Comment on above:Performed By: #### TSH, FT3, BMP #### [facility] [address] [address] [address] Benito RandolphLDL CALC18.8 mg/dLNoSelect Medical Specialty Hospital - Cleveland-FairhillComment on above: Performed By: #### TSH, FT3, BMP #### [facility] [address] [place] [address] Dr. Benito Kelley 29-74-6846CZD70.732 uIU/mLCritically high0.358-3.740The [facility] HospitalComment on above:Performed By: #### FT4, PSASC #### [facility] [address] [place] [address] Dr. Benito SchwartzPTH INTACTon 64-77-1566MDU, Ryyerg50 pg/oGLefsue67-20Gkl [facility] HospitalComment on above:Performed By: #### URTPCR #### [facility] [address] [place] [address] Dr. Benito SchwartzT3, TOTAL (TRIIODOTHYRONINE)on 32-76-6281M3, TOTAL77 ng/dLNormal 71-180The [facility] HospitalComment on above:Performed By: #### TSH, FT3, BMP #### [facility] [address] [place] [address] Dr. Benito SchwartzCBC AUTO DIFFon 90-06-4353YJSL #0.0 103/ulNormal0.0-0.1The [facility] HospitalComment on above:Performed By: #### CBC #### [facility] [address] [place] [address] Dr. Benito SchwartzBasophils/100 WBC (Bld)0.4 %Normal0.2-2.0The [facility] Comment on above:Performed By: #### CBC #### [facility] [address] [place] [address] Dr. Benito Deluna #0.4 103/ulNormal0.0-0.7The [facility] HospitalComment on above: Performed By: #### CBC #### [facility] [address] [place] [address] Dr. Benito Wanosinophils/100 WBC (Bld)5.1 %Normal0.9-7.0The [facility] Comment on above:Performed By: #### CBC #### [facility] [address] [place] [address] Dr. Benito Wanrythrocyte distribution width (RBC) [Ratio]13.2 %Nogypm49.0-15.0 The [facility] HospitalComment on above:Performed By: #### CBC #### [facility] [address] [place] [address] Dr. Benito SchwartzHematocrit (Bld) [Volume fraction]37.4 %Critically low42.0-54.0 The [facility] HospitalComment on above:Performed By: #### CBC #### [facility] [address] [place] [address] Dr. Benito SchwartzHemoglobin (Bld) [Mass/Vol]12.4 g/dLCritically low14.0-18.0[facility] CenterComment on above:Performed By: #### CBC #### [facility] [address] [place] [address] Dr. Benito Carias #0.03 10e3/ulNormal0.00-0.03The [facility] Hospitalment on above:Performed By: #### CBC #### [facility] [address] [place] [address] Dr. Benito Carias %0.4 %Normal0.0-0.5The [facility] HospitalComment on above: Performed By: #### CBC #### [facility] [address] [place] [address] Dr. Benito Negrete #1.6 103/ulNormal1.2-3.8The [facility] HospitalComthree rivers health hospital on above:Performed By: #### CBC #### [facility] [address] [place] [address] Dr. Benito Lozanomphocytes/100 WBC (Bld)20.3 %Critically low20.5-60.0[facility] Medical CenterComment on above:Performed By: #### CBC #### [facility] [address] [place] [address] Dr. Benito ZhaoUAL DIFF REQNONormalThe [facility] HospitalComment on above: Performed By: #### CBC #### [facility] [address] [place] [address] Dr. Benito Quarles (RBC) [Entitic mass]31.7 uiIfplge08.9-34.0The [facility] HospitalComment on above:Performed By: #### CBC #### [facility] [address] [address] [address] Benito LawsonHC (RBC) [Mass/Vol]33.2 g/eCLhudjh84.9-35.2The [facility] HospitalComment on above:Performed By: #### CBC #### [facility] [address] [address] [address] Benito LawsonV (RBC) [Entitic vol]95.7 fLCritically high80.0-94.0The [facility] HospitalComment on above:Performed By: #### CBC #### [facility] [address] [place] [address] Dr. Benito Colin #0.7 103/ulNormal0.3-0.8The [facility] HospitalComment on above:Performed By: #### CBC #### [facility] [address] [place] [address] Dr. Benito Francoocytes/100 WBC (Bld)8.6 %Normal1.7-12.0The [facility] Comment on above:Performed By: #### CBC #### [facility] [address] [place] [address] Dr. Benito Herrera #5.3 103/ulNormal1.4-6.5The [facility] HospitalComment on above:Performed By: #### CBC #### [facility] [address] [place] [address] Dr. Benito Herediautrophils/100 WBC (Bld)65.2 %Ethkse22.0-75.0The [facility] HospitalComment on above:Performed By: #### CBC #### [facility] [address] [place] [address] Dr. Benito Montillalet mean volume (Bld) [Entitic vol]9.0 fLCritically low 9.5-13.5The [facility] HospitalComment on above:Performed By: #### CBC #### [facility] [address] [place] [address] Dr. Benito SchwartzPLT209 103/vtWsfxuq714-579Gph [facility] on above: Performed By: #### CBC #### [facility] [address] [address] [address] Benito SchwartzRBC3.91 106/ulCritically low4.70-6.10The [facility] on above:Performed By: #### CBC #### [facility] [address] [address] [address] Benito SchwartzWBC8.1 103/ulNormal4.0-11.0[facility] on above: Performed By: #### CBC #### [facility] [address] [place] [address] Dr. Benito SchwartzFREE T4on 01-72-4654Jvgt T4 [Mass/Vol]0.87 ng/dLNormal0.76-1.46 [facility] on above:Performed By: #### FT4, PSASC #### [facility] [address] [place] [address] Dr. Benito SchwartzGLYCOHEMOGLOBIN A1Con 49-18-0494XDS RECOMMENDATIONSEE BELOWNormal The [facility] on above:Result Comment: ADA RECOMMENDED LIMIT 4.0 - 6.0 ADA THERAPEUTIC TARGET < 7.0 ACTION SUGGESTED > 7.0Performed By: #### CBC #### [facility] [address] [place] [address] Dr. Benito SchwartzGlucose [Mass/Vol]126 mg/dLNormalThe [facility] on above:Performed By: #### CBC #### [facility] [address] [place] [address] Dr. Benito SchwartzHbA1c (Bld) [Mass fraction]6.0 %Normal4.5-6.2The [facility] on above:Performed By: #### CBC #### [facility] [address] [place] [address] Dr. Benito SchwartzMAGNESIUMon 45-08-1022Hjbrbmsiz [Mass/Vol]2.3 mg/dLNormal1.8-2.4 [facility]Comment on above:Performed By: #### URTPCR #### [facility] [address] [address] [address] Benito SchwartzPHOSPHORUSon 60-68-4506Otzqqjscn [Mass/Vol]4.1 mg/dLNormal2.6-4.7 The [facility] HospitalComment on above:Performed By: #### URTPCR #### [facility] [address] [place] [address] Dr. Benito SchwartzPROF CHEM 8 (BAS METB)on 16-27-0371Evalv gap [Moles/Vol]11.1 mmol/LNormalThe [facility] HospitalComment on above:Performed By: #### URTPCR #### [facility] [address] [place] [address] Dr. Benito SchwartzCalcium [Mass/Vol]8.9 mg/dLNormal8.5-10.1The [facility] Comment on above:Performed By: #### URTPCR #### [facility] [address] [place] [address] Dr. Benito SchwartzChloride [Moles/Vol]100 mmol/DUisbic81-197Etf [facility] Comment on above:Performed By: #### URTPCR #### [facility] [address] [place] [address] Dr. Benito SchwartzCO2 [Moles/Vol]33.2 mmol/LCritically high21.0-32.0The [facility] HospitalComment on above:Performed By: #### URTPCR #### [facility] [address] [place] [address] Dr. Benito SchwartzCreatinine [Mass/Vol]2.31 mg/dLCritically high0.70-1.30The [facility] HospitalComment on above:Performed By: #### URTPCR #### [facility] [address] [place] [address] Dr. Oliver ChangEGFR-AF XRDYVONL02 mL/min/1.33q0Cervgdvdkg low>=60The [facility] HospitalComment on above:Performed By: #### URTPCR #### [facility] [address] [address] [address] Benito WanGFR-NON AF QYQIQBXQ10 mL/min/1.09k5Nnvejtsfhe low>=60The [facility] HospitalComment on above:Performed By: #### URTPCR #### [facility] [address] [address] [address] Benito SchwartzGlucose [Mass/Vol]112 mg/dLCritically kmwl47-000Rmi [facility] HospitalComment on above:Performed By: #### URTPCR #### [facility] [address] [address] [address] Benito SchwartzPotassium [Moles/Vol]4.3 mmol/LNormal3.5-5.1The [facility] Comment on above:Performed By: #### URTPCR #### [facility] [address] [address] [address] Benito SchwartzSodium [Moles/Vol]140 mmol/YXybfrs185-626Dwi [facility] Comment on above:Performed By: #### URTPCR #### [facility] [address] [address] [address] Benito SchwartzUrea nitrogen [Mass/Vol]51.0 mg/dLCritically high7.0-18.0The [facility] HospitalComthree [facility] on above:Performed By: #### URTPCR #### [facility] [address] [address] [address] Benito Andrade nitrogen/Creatinine [Mass ratio]22.1 mg/mgNormalThe [facility] HospitalComment on above:Performed By: #### URTPCR #### [facility] [address] [address] [address] Benito Kelley 15-77-2271EAJ65.692 uIU/mLCritically high0.358-3.740The [facility] HospitalComment on above:Performed By: #### CBC #### [facility] [address] [address] [address] Benito SORENSENon 74-09-7240Xfmyjdpls Ql (U)NegativeNormalNEGATIVEThe [facility] HospitalComment on above:Performed By: #### URTPCR #### [facility] [address] [address] [address] Benito SchwartzClarity (U)CLEARNormalCLEARAdena Fayette Medical CenterComment on above: Performed By: #### URTPCR #### [facility] [address] [address] [address] Benito Mendietalor (U)LT. YELLOWNormalYELLOWAdena Fayette Medical CenterComment on above:Performed By: #### URTPCR #### [facility] [address] [address] [address] Benito SchwartzGlucose Ql (U)NegativeNormalNEGATIVEAdena Fayette Medical CenterComment on above:Performed By: #### URTPCR #### [facility] [address] [place] [address] Dr. Benito SchwartzHemoglobin Ql (U)NegativeNormalNEGATIVEOhiohealth Hardin [facility] Hospital on above:Performed By: #### URTPCR #### [facility] [address] [address] [address] Benito SchwartzKetones Ql (U)NegativeNormalNEGATIVEAdena Fayette Medical CenterComment on above:Performed By: #### URTPCR #### [facility] [address] [place] [address] Dr. Benito SchwartzLEUKOCYTESNegativeNormalNEGATIVEAdena Fayette Medical CenterComment on above:Performed By: #### URTPCR #### [facility] [address] [address] [address] Benito SchwartzNitrite Ql (U)NegativeNormalNEGATIVEAdena Fayette Medical CenterComment on above:Performed By: #### URTPCR #### [facility] [address] [address] [address] Benito SchwartzpH (U)6.0 [pH]Normal5-9[facility] CenterComment on above: Performed By: #### URTPCR #### [facility] [address] [place] [address] Dr. Benito Lopez GRAVITY<=1.417Foafifaa1.005-<=1.025[facility] Comment on above:Performed By: #### URTPCR #### [facility] [address] [place] [address] Dr. Benito Edwards PROTEINNegativeNormalNEGATIVE/ TRACEAdena Fayette Medical Center Comment on above:Performed By: #### URTPCR #### [facility] [address] [place] [address] Dr. Benito Mosesbilinogen Qn (U)0.2 {Jagruti'U}/dLNormal0.2 - 1.0[facility] CenterComment on above:Performed By: #### URTPCR #### [facility] [address] [place] [address] Dr. Benito Holder T PROTEIN CREAT RATIOon 12-83-2417Ywjejgt (U) [Mass/Vol] 19.1 mg/dLCritically high<=12.0[facility] CenterComment on above:Performed By: #### FT4, PSASC #### [facility] [address] [place] [address] Dr. Benito Bermudez PROT CREAT RAT0.75[facility] Anne HospitalComment on above: Performed By: #### FT4, PSASC #### [facility] [address] [place] [address] Dr. Benito Holder CREAT25.63 mg/iFYjxkmw89.00-300.00[facility] Comment on above:Performed By: #### FT4, PSASC #### [facility] [address] [place] [address] Dr. Benito SchwartzVITAMIN D 25 OHon 39-91-8937FNF D 25-OH86.8 ng/mLNormalAdena Fayette Medical CenterComment on above:Performed By: #### URTPCR #### [facility] [address] [place] [address] Dr. Benito Kimble D RANGES[place] BELOWMercy Health St. Anne HospitalComment on above: Result Comment: <20 ng/mL Vit D deficient 20 - <30 ng/mL Vit D insufficient 30 - 100 ng/mL Vit D sufficient >100 ng/mL Potential ToxicityPerformed By: #### URTPCR #### [facility] [address] [place] [address] Dr. Benito Vega, TOTAL (TRIIODOTHYRONINE)on 37-01-7658E7, TOTAL82 ng/dLNormal 71-180The [facility] HospitalComment on above:Performed By: #### VITAD #### [facility] [address] [place] [address] Dr. Benito Linton T4on 17-61-2920Ccit T4 [Mass/Vol]0.93 ng/dLNormal0.76-1.46 The [facility] HospitalComment on above:Performed By: #### CBC #### [address] [address] Dr[address] Benito Kelley 20-34-3467UIQ46.189 uIU/mLCritically high0.358-3.740The [facility] HospitalComment on above:Performed By: #### FT4, PSASC #### [facility] [address] [place] [address] Dr. Benito Vega, TOTAL (TRIIODOTHYRONINE)on 50-35-4599T2, TOTAL43 ng/dL Critically uji92-321Ieg [facility] HospitalComment on above:Performed By: #### FT4, PSASC #### [facility] [address] [place] [address] Dr. Benito Linton T4on 88-18-6069Cgfj T4 [Mass/Vol]0.35 ng/dLCritically low 0.76-1.46The [facility] HospitalComment on above:Performed By: #### FT4, PSASC #### [facility] [address] [place] [address] Dr. Benito Kelley 46-57-6814IMU063.174 uIU/mLCritically high0.358-3.740The [facility] HospitalComment on above:Performed By: #### FT4, PSASC #### [facility] [address] [place] [address] Dr. Benito SchwartzMAGNESIUMon 36-25-9006Syssgwuld [Mass/Vol]2.5 mg/dLCritically high1.8-2.4The [facility] HospitalComment on above:Performed By: #### FT4 #### [facility] [address] [place] [address] Dr. Benito SchwartzPROF CHEM 8 (BAS METB)on 07-44-0527Zauub gap [Moles/Vol]7.3 mmol/LNormalThe [facility] HospitalComment on above:Performed By: #### FT4 #### [facility] [address] [place] [address] Dr. Benito SchwartzCalcium [Mass/Vol]8.8 mg/dLNormal8.5-10.1The [facility] Comment on above:Performed By: #### FT4 #### [facility] [address] [place] [address] Dr. Benito SchwartzChloride [Moles/Vol]100 mmol/KDhgyoc53-857Nfq [facility] Comment on above:Performed By: #### FT4 #### [facility] [address] [place] [address] Dr. Benito SchwartzCO2 [Moles/Vol]33.7 mmol/LCritically high21.0-32.0The [facility] HospitalComment on above:Performed By: #### FT4 #### [facility] [address] [place] [address] Dr. Benito SchwartzCreatinine [Mass/Vol]2.43 mg/dLCritically high0.70-1.30The [facility] HospitalComment on above:Performed By: #### FT4 #### [facility] [address] [place] [address] Dr. Benito WanGFR-AF STYZIDBK98 mL/min/1.68r6Fildahxmwo low>=60The [facility] HospitalComment on above:Performed By: #### FT4 #### [facility] [address] [place] [address] Dr. Yilan ChangEGFR-NON AF XQGIPGWF60 mL/min/1.84n9Waiftxgggp low>=60The [facility] HospitalComment on above:Performed By: #### FT4 #### [facility] [address] [place] [address] Dr. Benito SchwartzGlucose [Mass/Vol]136 mg/dLCritically zwrn20-368Qpt [facility] HospitalComment on above:Performed By: #### FT4 #### [facility] [address] [place] [address] Dr. Benito SchwartzPotassium [Moles/Vol]4.0 mmol/LNormal3.5-5.1The [facility] Comment on above:Performed By: #### FT4 #### [facility] [address] [place] [address] Dr. Benito SchwartzSodium [Moles/Vol]137 mmol/UDxukxq781-826Hiz [facility] Comment on above:Performed By: #### FT4 #### [facility] [address] [place] [address] Dr. Benito SchwartzUrea nitrogen [Mass/Vol]47.0 mg/dLCritically high7.0-18.0The [facility] HospitalComment on above:Performed By: #### FT4 #### [facility] [address] [place] [address] Dr. Benito Andrade nitrogen/Creatinine [Mass ratio]19.3 mg/mgNormalThe [facility] HospitalComment on above:Performed By: #### FT4 #### [facility] [address] [place] [address] Dr. Benito SchwartzPTH INTACTon 55-90-0358DTQ, Yacvlp79 pg/kHPvmasd64-07Xpl [facility] HospitalComment on above:Performed By: #### FT4, PSASC #### [facility] [address] [place] [address] Dr. Benito Love AUTO DIFFon 83-82-4037NGUD #0.0 103/ulNormal0.0-0.1The [facility] HospitalComment on above:Performed By: #### FT4, PSASC #### [facility] [address] [place] [address] Dr. Benito SchwartzBasophils/100 WBC (Bld)0.5 %Normal0.2-2.0The [facility] Comment on above:Performed By: #### FT4, PSASC #### [facility] [address] [place] [address] Dr. Benito Deluna #0.4 103/ulNormal0.0-0.7The [facility] HospitalComment on above: Performed By: #### FT4, PSASC #### [facility] [address] [place] [address] Dr. Benito Wanosinophils/100 WBC (Bld)5.3 %Normal0.9-7.0The [facility] Comment on above:Performed By: #### FT4, PSASC #### [facility] [address] [place] [address] Dr. Benito Wanrythrocyte distribution width (RBC) [Ratio]14.3 %Obdeqa17.0-15.0 [facility] CenterComment on above:Performed By: #### FT4, PSASC #### [facility] [address] [place] [address] Dr. Benito SchwartzHematocrit (Bld) [Volume fraction]36.9 %Critically low42.0-54.0 The [facility] HospitalComment on above:Performed By: #### FT4, PSASC #### [facility] [address] [place] [address] Dr. Benito SchwartzHemoglobin (Bld) [Mass/Vol]12.4 g/dLCritically low14.0-18.0The [facility] HospitalComment on above:Performed By: #### FT4, PSASC #### [facility] [address] [place] [address] Dr. Benito Carias #0.04 10e3/ulCritically high0.00-0.03The [facility] Comment on above:Performed By: #### FT4, PSASC #### [facility] [address] [place] [address] Dr. Benito Carias %0.5 %Normal0.0-0.5The [facility] HospitalComment on above: Performed By: #### FT4, PSASC #### [facility] [address] [place] [address] Dr. Benito Negrete #1.6 103/ulNormal1.2-3.8The [facility] HospitalComment on above:Performed By: #### FT4, PSASC #### [facility] [address] [place] [address] Dr. Benito Whitthocytes/100 WBC (Bld)22.2 %Mahyab92.5-60.0The [facility] HospitalComment on above:Performed By: #### FT4, PSASC #### [facility] [address] [place] [address] Dr. Benito ZhaoUAL DIFF REQNONormalThe [facility] HospitalComment on above: Performed By: #### FT4, PSASC #### [facility] [address] [place] [address] Dr. Benito Lawson (RBC) [Entitic mass]31.2 gnQqqamy53.9-34.0The [facility] HospitalComment on above:Performed By: #### FT4, PSASC #### [facility] [address] [place] [address] Dr. Benito Lawson (RBC) [Mass/Vol]33.6 g/dBTcfmav10.9-35.2The [facility] HospitalComment on above:Performed By: #### FT4, PSASC #### [facility] [address] [place] [address] Dr. Benito Lawson (RBC) [Entitic vol]92.7 nMSrrufy87.0-94.0The [facility] HospitalComment on above:Performed By: #### FT4, PSASC #### [facility] [address] [place] [address] Dr. Benito Colin #0.5 103/ulNormal0.3-0.8The [facility] HospitalComment on above:Performed By: #### FT4, PSASC #### [facility] [address] [place] [address] Dr. Benito Francoocytes/100 WBC (Bld)6.4 %Normal1.7-12.0The [facility] Comment on above:Performed By: #### FT4, PSASC #### [facility] [address] [place] [address] Dr. Benito HerediaUT #4.8 103/ulNormal1.4-6.5The [facility] HospitalComment on above:Performed By: #### FT4, PSASC #### [facility] [address] [place] [address] Dr. Benito Herediautrophils/100 WBC (Bld)65.1 %Pwyesf96.0-75.0The [facility] HospitalComment on above:Performed By: #### FT4, PSASC #### [facility] [address] [place] [address] Dr. Benito SchwartzPlatelet mean volume (Bld) [Entitic vol]8.7 fLCritically low 9.5-13.5The [facility] HospitalComment on above:Performed By: #### FT4, PSASC #### [facility] [address] [place] [address] Dr. Benito SchwartzPLT206 103/hhEaehav243-008Qch [facility] HospitalComment on above: Performed By: #### FT4, PSASC #### [facility] [address] [place] [address] Dr. Benito SchwartzRBC3.98 106/ulCritically low4.70-6.10The [facility] HospitalComment on above:Performed By: #### FT4, PSASC #### [facility] [address] [place] [address] Dr. Benito SchwartzWBC7.4 103/ulNormal4.0-11.0The [facility] HospitalComment on above: Performed By: #### FT4, PSASC #### [facility] [address] [place] [address] Dr. Benito RasheedGNESIUMon 23-90-2897Mkvjsnfzb [Mass/Vol]2.1 mg/dLNormal1.8-2.4 The [facility] HospitalComment on above:Performed By: #### B12FOL, FETIBC #### [facility] [address] [place] [address] Dr. Benito SchwartzPHOSPHORUSon 56-43-9705Rfgkverpw [Mass/Vol]3.2 mg/dLNormal2.6-4.7 The [facility] HospitalComment on above:Performed By: #### B12FOL, FETIBC #### [facility] [address] [address] [address] Benito SchwartzPROF CHEM 8 (BAS METB)on 30-44-5077Jcoqm gap [Moles/Vol]10.1 mmol/LNormalThe [facility] HospitalComment on above:Performed By: #### B12FOL, FETIBC #### [facility] [address] [address] [address] Benito SchwartzCalcium [Mass/Vol]9.3 mg/dLNormal8.5-10.1The [facility] Comment on above:Performed By: #### B12FOL, FETIBC #### [facility] [address] [address] [address] Benito SchwartzChloride [Moles/Vol]99 mmol/HLrdter76-918Agj [facility] Comment on above:Performed By: #### B12FOL, FETIBC #### [facility] [address] [address] [address] Benito SchwartzCO2 [Moles/Vol]32.4 mmol/LCritically high21.0-32.0The [facility] HospitalComment on above:Performed By: #### B12FOL, FETIBC #### [facility] [address] [place] [address] Dr. Benito SchwartzCreatinine [Mass/Vol]2.77 mg/dLCritically high0.70-1.30The [facility] HospitalComment on above:Performed By: #### B12FOL, FETIBC #### [facility] [address] [address] [address] Benito WanGFR-AF QZRKQDYZ23 mL/min/1.61a4Khrvpqyarq low>=60The [facility] Hospitalment on above:Performed By: #### B12FOL, FETIBC #### [facility] [address] [place] [address] Dr. Benito WanGFR-NON AF PRHFCVSP45 mL/min/1.79j0Ujdttbwjjn low>=60The [facility] HospitalComment on above:Performed By: #### B12FOL, FETIBC #### [facility] [address] [place] [address] Dr. Benito SchwartzGlucose [Mass/Vol]166 mg/dLCritically rilx01-135Pay [facility] HospitalComment on above:Performed By: #### B12FOL, FETIBC #### [facility] [address] [place] [address] Dr. Benito SchwartzPotassium [Moles/Vol]3.5 mmol/LNormal3.5-5.1[facility] Comment on above:Performed By: #### B12FOL, FETIBC #### [facility] [address] [place] [address] Dr. Benito Villalobosdium [Moles/Vol]138 mmol/EVawfqp952-068UnyAdena [facility] Medical Center Comment on above:Performed By: #### B12FOL, FETIBC #### [facility] [address] [place] [address] Dr. Benito SchwartzUrea nitrogen [Mass/Vol]50.0 mg/dLCritically high7.0-18.0The [facility] HospitalComment on above:Performed By: #### B12FOL, FETIBC #### [facility] [address] [place] [address] Dr. Benito Andrade nitrogen/Creatinine [Mass ratio]18.1 mg/mgNormalThe [facility] HospitalComment on above:Performed By: #### B12FOL, FETIBC #### [facility] [address] [place] [address] Dr. Benito Bowden 97-69-9879Knsbqleir Ql (U)NegativeNormalNEGATIVEAdena Fayette Medical CenterComment on above:Performed By: #### VITAD #### [facility] [address] [place] [address] Dr. Benito Poncearity (U)CLEARNormalCLEARAdena Fayette Medical CenterComment on above: Performed By: #### VITAD #### [facility] [address] [place] [address] Dr. Benito Edmonds (U)LT. YELLOWNormalYELLOWAdena Fayette Medical CenterComment on above:Performed By: #### VITAD #### [facility] [address] [place] [address] Dr. Benito SchwartzGlucose Ql (U)NegativeNormalNEGATIVEAdena Fayette Medical CenterComment on above:Performed By: #### VITAD #### [facility] [address] [place] [address] Dr. Benito SchwartzHemoglobin Ql (U)NegativeNormalNEGATIVEOhiohealth [facility]in [facility] Hospital on above:Performed By: #### VITAD #### [facility] [address] [place] [address] Dr. Benito SchwartzKetones Ql (U)NegativeNormalNEGATIVEAdena Fayette Medical CenterComment on above:Performed By: #### VITAD #### [facility] [address] [place] [address] Dr. Benito SchwartzLEUKOCYTESNegativeNormalNEGATIVEAdena Fayette Medical CenterComment on above:Performed By: #### VITAD #### [facility] [address] [place] [address] Dr. Benito SchwartzNitrite Ql (U)NegativeNormalNEGATIVEAdena Fayette Medical CenterComment on above:Performed By: #### VITAD #### [facility] [address] [place] [address] Dr. Benito SchwartzpH (U)5.5 [pH]Normal5-9[facility] CenterComment on above: Performed By: #### VITAD #### [facility] [address] [place] [address] Dr. Benito Lopez GRAVITY1.342Hklnqr5.005-<=1.025[facility] CenterComment on above:Performed By: #### VITAD #### [facility] [address] [place] [address] Dr. Benito Edwards PROTEINNegativeNormalNEGATIVE/ TRACEThe [facility] Comment on above:Performed By: #### VITAD #### [facility] [address] [place] [address] Dr. Benito Alvarez Qn (U)0.2 {Jagruti'U}/dLNormal0.2 - 1.0The [facility] HospitalComment on above:Performed By: #### VITAD #### [facility] [address] [place] [address] Dr. Benito Holder T PROTEIN CREAT RATIOon 04-15-2383Lljpnie (U) [Mass/Vol] 16.4 mg/dLCritically high<=12.0The [facility] HospitalComment on above:Performed By: #### TSH, FT3, BMP #### [facility] [address] [place] [address] Dr. Benito Bermudez PROT CREAT RAT0.79[facility] Anne HospitalComment on above: Performed By: #### TSH, FT3, BMP #### [facility] [address] [place] [address] Dr. Benito Holder CREAT20.88 mg/xXYjssvg50.00-300.00[facility] Comment on above:Performed By: #### TSH, FT3, BMP #### [facility] [address] [place] [address] Dr. eBnito SchwartzVITAMIN D 25 OHon 69-84-0363GNN D 25-OH83.7 ng/mLNormalAdena Fayette Medical CenterComment on above:Performed By: #### VITAD #### [facility] [address] [place] [address] Dr. Benito Kimble D RANGESSEE BELOWMercy Health St. Anne HospitalComment on above: Result Comment: <20 ng/mL Vit D deficient 20 - <30 ng/mL Vit D insufficient 30 - 100 ng/mL Vit D sufficient >100 ng/mL Potential ToxicityPerformed By: #### VITAD #### [facility] [address] [place] [address] Dr. Benito SchwartzAlbumin [Mass/volume] in Serum or PlasmaOrdered By: Leigha Nelson on 88-30-6900Mrqsbnr [Mass/Vol]3.9 g/dL3.2-5.5FMain Campus Medical Center Basophils Auto (Bld) [#/Vol]Ordered By: Leigha Nelson on 20-22-4824Lnzllxxzc (Bld) [#/Vol]0.0 10*3/uL0.0-0.2FMain Campus Medical CenterBasophils/100 WBC Auto (Bld)Ordered By: Leigha Nelson on 33-85-1534Sciqrcepm/100 WBC (Bld)0.5 %.[facility] HospitalCreatinine and Glomerular filtration rate.predicted panel (S/P/Bld)Ordered By: Leigha Nelson on 88-39-6120Xyqcvngfvp [Mass/Vol]2.63 mg/dL0.64-1.27[facility] HospitalEosinophils Auto (Bld) [#/Vol]Ordered By: Leigha Omar on 94-63-0392Yyjusmlcyar (Bld) [#/Vol]0.3 10*3/uL0.0-0.45[facility] HospitalEosinophils/100 WBC Auto (Bld) Ordered By: Leigha Nelson on 17-09-9780Rxyrqrnfmyg/100 WBC (Bld)4.3 %.[facility] HospitalErythrocyte distribution width Auto (RBC) [Ratio]Ordered By: Leigha Nelson on 62-59-3193Slyjgknpgxj distribution width (RBC) [Ratio]15.7 %12.0-14.8[facility] HospitalEstimated glomerular filtration rate (GFR) non- AmericanOrdered By: Leigha Nelson on 85-84-4500PXJ/1.73 sq M.predicted among non-blacks MDRD (S/P/Bld) [Vol rate/Area]24 mL/MinAvita Health System Ontario HospitalGFR/1.73 sq M.predicted among non-blacks MDRD (S/P/Bld) [Vol rate/Area]Estimated glomerular filtration rate (GFR) non- [facility] HospitalGlobulin Calc (S) [Mass/Vol]Ordered By: Leigha Nelson on 77-74-8248Yseflgxv (S) [Mass/Vol]2.8 g/dLAvita Health System Ontario HospitalHematocrit Auto (Bld) [Volume fraction]Ordered By: Leigha Nelson on 31-37-8460Ambjdifzye (Bld) [Volume fraction]37.2 %38.8-50.0[facility] HospitalHemoglobin [Mass/volume] in BloodOrdered By: Leigha Nelson on 97-22-3502Uwhblgxmyl (Bld) [Mass/Vol]12.4 g/dL13.0-17.0[facility] HospitalLaboratory - Hematology and Cell countsOrdered By: Leigha Nelson on 51-28-4857Shngrlorb RBC/100 WBC (Bld) [Ratio]0.1 %0-0.5FMain Campus Medical CenterLeukocytes [#/volume] in Blood by Automated countOrdered By: Leigha Nelson on 06-90-9889CUP (Bld) [#/Vol]6.7 10*3/uL4.5-11.0[facility] HospitalLymphocytes Auto (Bld) [#/Vol]Ordered By: Leigha Nelson on 48-05-0355Hhpgllagvvn (Bld) [#/Vol]1.2 10*3/uL1.00-4.8[facility] HospitalLymphocytes/100 WBC Auto (Bld)Ordered By: Leigha Nelson on 08-31-2022 Lymphocytes/100 WBC (Bld)18.5 %.[facility] Auto (RBC) [Entitic mass]Ordered By: Leigha Nelson on 83-18-4238ISV (RBC) [Entitic mass] 31.0 pg27.5-35.2FMain Campus Medical CenterMCHC Auto (RBC) [Mass/Vol] Ordered By: Leigha Nelson on 29-81-8973QTXA (RBC) [Mass/Vol]33.4 g/dL32.5-35.6 [facility] HospitalMCV Auto (RBC) [Entitic vol]Ordered By: Leigha Nelson on 44-79-2282MLD (RBC) [Entitic vol]92.9 fL83.5-101[facility] HospitalMonocytes Auto (Bld) [#/Vol]Ordered By: Leigha Talamantesrenée on 16-53-6058Irwadftvv (Bld) [#/Vol]0.6 10*3/uL0.0-0.8[facility] HospitalMonocytes/100 WBC Auto (Bld)Ordered By: Leigha Omar on 08-31-2022 Monocytes/100 WBC (Bld)8.4 %.[facility] HospitalNeutrophils Auto (Bld) [#/Vol]Ordered By: Leigha Talamantesrenée on 12-21-0719Lpbdohhspow (Bld) [#/Vol]4.6 10*3/uL1.8-7.7FMain Campus Medical CenterNeutrophils/100 WBC Auto (Bld) Ordered By: Leigha Omar on 49-03-8268Olsjhufzzmn/100 WBC (Bld)68.3 %.[facility] HospitalNo Panel InformationOrdered By: Leigha Bangurajimena on 41-60-9582Glfjexvlp GFR ()29 mL/MinAvita Health System Ontario HospitalComment on above:GFR estimated reference range: According to KDOQI guidelines, <60 ml/min/1.73m2 is sufficient todiagnose a patient with chronic kidney disease.Pharmacy Creatinine Clearance (Chem26.08[facility]0.1 %0-0.5FMain Campus Medical Center29 mL/[facility] SystemPlatelet mean volume Auto (Bld) [Entitic vol]Ordered By: Leigha Talamatnesrenée on 57-02-2410Pktmrtke mean volume (Bld) [Entitic vol]6.8 fL 6.6-10.1FMain Campus Medical CenterPlatelets Auto (Bld) [#/Vol]Ordered By: Leigha Omar on 65-97-7010Taztsjinc (Bld) [#/Vol]238 10*3/hJ167-736VudxeibbpAvita Health System Ontario HospitalProtein [Mass/volume] in Serum or PlasmaOrdered By: Leigha Omar on 77-08-7660Gdypoai [Mass/Vol]6.7 g/dL6.1-7.9[facility] HospitalRBC Auto (Bld) [#/Vol]Ordered By: Leigha Omar on 93-06-7716WZT (Bld) [#/Vol]4.00 10*6/uL3.90-5.60[facility] [place] [facility] Hospitalerum or plasma alanine aminotransferase measurement without P-5'-P (enzymatic activi Ordered By: Leigha Nelson on 38-83-7596EMC No additional P-5'-P [Catalytic activity/Vol]26 U/K68-51LgxgsqgldEast Ohio Regional Hospitalerum or plasma albumin/globulin mass ratioOrdered By: Leigha Nelson on 08-31-2022 Albumin/Globulin [Mass ratio]1.4 {ratio}[facility] [place] [facility] Hospitalerum or plasma alkaline phosphatase measurement (enzymatic activity/volume)Ordered By: Leigha Nelson on 31-14-2178WLY [Catalytic activity/Vol]112 U/C01-72EogwuqgefEast Ohio Regional Hospitalerum or plasma anion gap determinationOrdered By: Leigha Nelson on 17-66-8156Jggbt gap [Moles/Vol]9.4 mmol/L6.0-15.0[facility] [place] [facility] Hospitalerum or plasma aspartate aminotransferase measurement (enzymatic activity/volume)Ordered By: Leigha Nelson on 71-36-7612CHY [Catalytic activity/Vol]32 U/O77-15CrpbtgitaEast [place] Regional Hospitalerum or plasma calcium measurement (mass/volume)Ordered By: Leigha Nelson on 28-28-5177Kqkuopg [Mass/Vol]8.9 mg/dL8.2-10.2FCleveland Clinic Marymount Hospitalerum or plasma carcinoembryonic antigen measurement (mass/volume)Ordered By: Leigha Nelson on 35-68-0638Kmrgeuugisksjvme Ag [Mass/Vol]2.5 ng/mL0.0-3.0[facility] [place] [facility] Hospitalerum or plasma chloride measurement (moles/volume)Ordered By: Leigha Nelson on 08-14-3765Ogaiclar [Moles/Vol]98 mmol/O19-148HemopvzylEast Ohio Regional Hospitalerum or plasma glucose measurement (mass/volume)Ordered By: eLigha Omar on 27-36-1458Jdtythr [Mass/Vol]104 mg/qP07-226MkqgiglkfAvita Health System Ontario HospitalComment on above:ADA recommended reference rangeRandom Glucose Reference Range is dependent on time and content of last meal. Glucose of more than 200 mg/dL in a nonstressed, ambulatory subject supports the diagnosisof Diabetes Mellitus.Serum or plasma potassium measurement (moles/volume)Ordered By: Leigha Nelson on 41-29-2371Qxyhkoxvf [Moles/Vol]3.4 mmol/L3.5-5.1FCleveland Clinic Marymount Hospitalerum or plasma sodium measurement (moles/volume)Ordered By: Leigha Omar on 43-01-9029Tlzjxy [Moles/Vol]135 mmol/A264-007GrtokjmdlEast [place] Regional Hospitalerum or plasma total bilirubin measurement (mass/volume) Ordered By: Leigha Omar on 38-18-4212Evveoetim [Mass/Vol]0.8 mg/dL0.3-1.2 [facility] [place] [facility] Hospitalerum or plasma total carbon dioxide measurement (moles/volume)Ordered By: Leigha Omar on 68-88-5590OG3 [Moles/Vol] 31.0 mmol/L22.0-30.0[facility] [place] [facility] Hospitalerum or plasma urea nitrogen measurement (mass/volume)Ordered By: Leigha Nelson on 31-61-1772Lveg nitrogen [Mass/Vol]40 mg/dL9-23[facility] HospitalT3, TOTAL (TRIIODOTHYRONINE)on 29-68-1128Q8, TOTAL42 ng/dLCritically dgc51-027Mpx [facility] HospitalComment on above:Performed By: #### FT4, PSASC #### [facility] [address] [address] [address] Benito Linton T4on 50-24-3031Igyd T4 [Mass/Vol]0.11 ng/dLCritically low 0.76-1.46The [facility] North HospitalComment on above:Performed By: #### VITAD #### [facility] [address] [address] [address] Benito Kelley 82-07-3217TIQ017.477 uIU/mLCritically high0.358-3.740The [facility] North HospitalComment on above:Performed By: #### FT4 #### [facility] [address] [place] [address] Dr. Benito SchwartzGlucose Glucometer (BldC) [Mass/Vol]Ordered By: Ramesh Rascon on 05-30-8553Xnlvjty [Mass/Vol]105 mg/dLAvita Health System Ontario HospitalComment on above:Random Glucose Reference Range is dependent on time and content of last meal. Glucose of more than 200 mg/dL in a nonstressed, ambulatory subject supports the diagnosis of Diabetes Mellitus.T3, TOTAL (TRIIODOTHYRONINE)on 14-58-4126F3, TOTAL56 ng/dLCritically ljc49-875Fjh [facility] HospitalComment on above:Performed By: #### FT4, PSASC #### [facility] [address] [place] [address] Dr. Benito Linton T4on 03-53-3383Iakx T4 [Mass/Vol]0.48 ng/dLCritically low 0.76-1.46The [facility] HospitalComment on above:Performed By: #### VITAD #### [facility] [address] [place] [address] Dr. Benito Kelley 14-38-3336FAH07.173 uIU/mLCritically high0.358-3.740The [facility] North HospitalComment on above:Performed By: #### URTPCR #### [facility] [address] [place] [address] Dr. Benito SchwartzCOVID-19 SOFIAOrdered By: Ramesh Rascon on 07-19-2022 SARS-CoV+SARS-CoV-2 (COVID-19) Ag IA.rapid Ql (Resp)NegativeNegativeAvita Health System Ontario HospitalComment on above:This is a duplicate Lindsay SARS Antigen (MADHU) result to be used for statistical tracking purpose only.No Panel InformationOrdered By: Ramesh Rascon on 18-88-5962OWBH Antigen (LFIA)[facility] HospitalAlbumin [Mass/volume] in Serum or PlasmaOrdered By: Chivo Keller on 46-52-4306Glmnlwg [Mass/Vol]3.9 g/dL3.2-5.5FMain Campus Medical CenterBasophils Auto (Bld) [#/Vol]Ordered By: Chivo Keller on 15-98-7523Lodzzyecg (Bld) [#/Vol]0.1 10*3/uL0.0-0.2FMain Campus Medical CenterBasophils/100 WBC Auto (Bld)Ordered By: Chivo Keller on 34-01-6843Ypplmbosr/100 WBC (Bld)0.8 %.[facility] HospitalBlood hemoglobin measurement (mass/volume)Ordered By: Chivo Keller on 05-31-2022 Hemoglobin (Bld) [Mass/Vol]11.1 g/dL13.0-17.0[facility] Blood leukocytes automated count (number/volume)Ordered By: Chivo Keller on 68-88-6178MQH (Bld) [#/Vol]8.8 10*3/uL4.5-11.0[facility] CT biopsyOrdered By: Danuta Kelly on 12-05-8733Lygyifofepo [Mass/Vol]210 mg/cX855-962XzffhzajoAvita Health System Ontario HospitalCreatinine (Bld) [Mass/Vol]Ordered By: Nikunj Shultz on 56-87-9121Oirvztqzlb [Mass/Vol]2.4 mg/dLHigh0.6-1.3 [facility] HospitalComment on above:ER/ESD physician is notified/shown all ISTAT results. Critical values may be confirmed by laboratory testing if deemed necessary by ER attending doctor.ER/ESD physician is notified/shown all ISTAT results.Critical values may be confirmed by laboratorytesting ifdeemed necessary by ER attending doctor.Creatinine [Mass/Vol]Whole blood creatinine measurementHigh0.6-1.3FMain Campus Medical CenterCreatinine and Glomerular filtration rate.predicted panel (S/P/Bld)Ordered By: Chivo Keller on 35-23-2866Tlehydwclc [Mass/Vol]2.23 mg/dL0.64-1.27[facility] HospitalEosinophils Auto (Bld) [#/Vol]Ordered By: Chivo Keller on 05-31-2022 Eosinophils (Bld) [#/Vol]0.4 10*3/uL0.0-0.45[facility] Eosinophils/100 WBC Auto (Bld)Ordered By: Chivo Keller on 05-31-2022 Eosinophils/100 WBC (Bld)4.1 %.[facility] HospitalErythrocyte distribution width Auto (RBC) [Ratio]Ordered By: Chivo Keller on 05-31-2022 Erythrocyte distribution width (RBC) [Ratio]16.4 %12.0-14.8[facility] HospitalEstimated glomerular filtration rate (GFR) non- Ordered By: Chivo Keller on 36-65-3355QLN/1.73 sq M.predicted among non- blacks MDRD (S/P/Bld) [Vol rate/Area]28 mL/MinAvita Health System Ontario Hospital Ferritin [Mass/volume] in Serum or PlasmaOrdered By: Danuta Kelly on 64-03-9033Izvubhid [Mass/Vol]96.9 ng/mL23.9-336.2FMain Campus Medical CenterFolate [Mass/volume] in Serum or PlasmaOrdered By: Danuta Kelly on 69-20-1585Ogehxn [Mass/Vol]17.7 ng/mL>5.9[facility] Comment on above:Folate reference range: >5.9 ng/ml The WHO technical consultation on folate and vitamin b12 deficiencies has determined that folate concentrations less than 4 ng/ml are considered deficient.Folate reference range: >5.9 ng/mlThe WHO technical consultation on folate and vitamin m70izayeataocuq has determined that folate concentrations lessthan 4 ng/ml are considered deficient.Globulin Calc (S) [Mass/Vol]Ordered By: Chivo Keller on 36-43-7547Ztudzjbz (S) [Mass/Vol] 3.4 g/dLAvita Health System Ontario HospitalHematocrit Auto (Bld) [Volume fraction] Ordered By: Chivo Keller on 97-12-1123Mdirphvrha (Bld) [Volume fraction] 33.6 %38.8-50.0[facility] HospitalIron [Mass/volume] in Serum or PlasmaOrdered By: Danuta Kelly on 73-35-3818Mryq [Mass/Vol]42 ug/zL86-560 [facility] HospitalIron binding capacity [Mass/volume] in Serum or PlasmaOrdered By: Danuta Kelly on 07-52-2873Eshf binding capacity [Mass/Vol]294 ug/sT883-526GmjqugzgmAvita Health System Ontario HospitalIron saturation [Mass Fraction] in Serum or PlasmaOrdered By: Danuta Kelly on 60-59-8609Graa saturation [Mass fraction]14.0 %20-50[facility] HospitalLaboratory - Chemistry and Chemistry - challengeOrdered By: Danuta Kelly on 05-31-2022 Cobalamin (Vitamin B12) [Mass/Vol]463 pg/tU411-677BirppenneAvita Health System Ontario HospitalLaboratory - Hematology and Cell countsOrdered By: Chivo Keller on 05-23-4264Wlrmkbktc RBC/100 WBC (Bld) [Ratio]0.0 %0-0.5FMain Campus Medical CenterLymphocytes Auto (Bld) [#/Vol]Ordered By: Chivo Keller on 67-06-5921Ruuybklmmzx (Bld) [#/Vol]1.5 10*3/uL1.00-4.8[facility] HospitalLymphocytes/100 WBC Auto (Bld)Ordered By: Chivo Keller on 05-31-2022 Lymphocytes/100 WBC (Bld)17.2 %.[facility] Auto (RBC) [Entitic mass]Ordered By: Chivo Keller on 42-26-8309WTT (RBC) [Entitic mass]29.2 pg27.5-35.2FSt. Vincent HospitalHC Auto (RBC) [Mass/Vol] Ordered By: Chivo Keller on 04-73-9387VCAL (RBC) [Mass/Vol]33.1 g/dL 32.5-35.6FSt. Vincent HospitalV Auto (RBC) [Entitic vol]Ordered By: Chivo Keller on 69-32-6128ICZ (RBC) [Entitic vol]88.2 fL83.5-101 [facility] HospitalMonocytes Auto (Bld) [#/Vol]Ordered By: Chivo Keller on 93-06-9824Ervwnfgxc (Bld) [#/Vol]0.7 10*3/uL0.0-0.8[facility] HospitalMonocytes/100 WBC Auto (Bld)Ordered By: Chivo Keller on 58-19-5939Pchmkkwfd/100 WBC (Bld)8.0 %.[facility] Neutrophils Auto (Bld) [#/Vol]Ordered By: Chivo Keller on 05-31-2022 Neutrophils (Bld) [#/Vol]6.2 10*3/uL1.8-7.7FMain Campus Medical Center Neutrophils/100 WBC Auto (Bld)Ordered By: Chivo Keller on 05-31-2022 Neutrophils/100 WBC (Bld)69.9 %.[facility] HospitalNo Panel InformationOrdered By: Nikunj Shultz on 67-57-8394CFI Estimated GFR Dpqzwwqn17SpuktylqaAvita Health System Ontario HospitalComment on above:GFR estimated reference range: According to KDOQI guidelines, <60 ml/min/1.73m2 is sufficient todiagnose a patient with chronic kidney disease.POC Estimated GFR Non- Aahj23QkmbpasddAvita Health System Ontario Hospital26[facility]32 [facility] HospitalNo Panel InformationOrdered By: Chivo Keller on 56-95-4290Oyzzmvbnq GFR ()34 mL/MinAvita Health System Ontario HospitalComment on above:GFR estimated reference range: According to KDOQI guidelines, <60 ml/min/1.73m2 is sufficient todiagnose a patient with chronic kidney disease.Pharmacy Creatinine Clearance (Chem31.14[facility] HospitalPlatelet mean volume Auto (Bld) [Entitic vol]Ordered By: Chivo Keller on 16-57-0373Jlgluvew mean volume (Bld) [Entitic vol]7.0 fL 6.6-10.1FMain Campus Medical CenterPlatelets Auto (Bld) [#/Vol]Ordered By: Chivo Keller on 26-83-4801Zvifyuvsi (Bld) [#/Vol]308 10*3/rW105-026 [facility] HospitalProtein [Mass/volume] in Serum or PlasmaOrdered By: Chivo Keller on 86-67-1876Rtvxonq [Mass/Vol]7.3 g/dL6.1-7.9[facility] HospitalRBC Auto (Bld) [#/Vol]Ordered By: Chivo Keller on 33-03-9288VQL (Bld) [#/Vol]3.81 10*6/uL3.90-5.60[facility] [place] [facility] Hospitalerum or plasma alanine aminotransferase measurement without P-5'-P (enzymatic activiOrdered By: Chivo Keller on 49-92-5961TDY No additional P-5'-P [Catalytic activity/Vol]17 U/I21-52QezfswqifEast Ohio Regional Hospitalerum or plasma albumin/globulin mass ratioOrdered By: Chivo Keller on 05-31-2022 Albumin/Globulin [Mass ratio]1.1 {ratio}[facility] [place] [facility] Hospitalerum or plasma alkaline phosphatase measurement (enzymatic activity/volume)Ordered By: Chivo Keller on 87-63-2024VGK [Catalytic activity/Vol]140 U/L32-92 [facility] [place] [facility] Hospitalerum or plasma aspartate aminotransferase measurement (enzymatic activity/volume)Ordered By: Chivo Keller on 08-14-4847YWP [Catalytic activity/Vol]22 U/N02-53NlbepmpovEast [place] Regional Hospitalerum or plasma calcium measurement (mass/volume)Ordered By: Chivo Keller on 70-48-4351Bvnnsyn [Mass/Vol]9.5 mg/dL8.2-10.2FCleveland Clinic Marymount Hospitalerum or plasma carcinoembryonic antigen measurement (mass/volume) Ordered By: Chivo Keller on 83-44-3464Kwmpzsvgbdfcitet Ag [Mass/Vol]1.8 ng/mL0.0-3.0[facility] [place] [facility] Hospitalerum or plasma chloride measurement (moles/volume)Ordered By: Chivo Keller on 04-34-0974Tvmjaaed [Moles/Vol]101 mmol/V63-473VawkznmabEast Ohio Regional Hospitalerum or plasma glucose measurement (mass/volume)Ordered By: Chivo Keller on 05-31-2022 Glucose [Mass/Vol]108 mg/sR38-151ThdwvbtrrAvita Health System Ontario HospitalComment on above:ADA recommended reference range Random Glucose Reference Range is dependent on time and content of last meal. Glucose of more than 200 mg/dL in a nonstressed, ambulatory subject supports the diagnosis of Diabetes Mellitus.ADA recommended reference rangeRandom Glucose Reference Range is dependent on time and content of last meal. Glucose of more than 200 mg/dL in a nonstressed, ambulatory subject supports the diagnosisof Diabetes Mellitus.Serum or plasma potassium measurement (moles/volume)Ordered By: Chivo Keller on 34-50-9696Gsnycjgxx [Moles/Vol]4.4 mmol/L3.5-5.1 [facility] [place] [facility] Hospitalerum or plasma sodium measurement (moles/volume)Ordered By: Chivo Keller on 03-07-0123Fverlp [Moles/Vol]140 mmol/X512-057BralrsctzEast Ohio Regional Hospitalerum or plasma total bilirubin measurement (mass/volume)Ordered By: Chivo Keller on 83-83-9859Cenxrzwxe [Mass/Vol]0.5 mg/dL0.3-1.2FCleveland Clinic Marymount Hospitalerum or plasma total carbon dioxide measurement (moles/volume)Ordered By: Chivo Keller on 66-19-9477GK4 [Moles/Vol]29.7 mmol/L22.0-30.0[facility] Serum or plasma urea nitrogen measurement (mass/volume)Ordered By: Chivo Keller on 62-34-1735Zqye nitrogen [Mass/Vol]42 mg/dL9-23[facility] HospitalCBC W/DIFFon 67-87-4572RXV IMM GRANS0.1 10*3/uLNormal0.0-0.2The [facility] HospitalComment on above:Performed By: #### [id number] #### [facility] [address] [place] [address], USAABS NEUTROPHILS6.4 10*3/uLNormal1.6-7.6The [facility] HospitalComment on above:Performed By: #### [id number] #### [facility] [address] [place] [address], USABasophils (Bld) [#/Vol]0.0 10*3/uLNormal0.0-0.2The [facility] HospitalComment on above:Performed By: #### [id number] #### [facility] [address] [address], USABasophils/100 WBC (Bld)0.4 %Normal0.0-1.0The [facility] HospitalComment on above:Performed By: #### [id number] #### [facility] [address] [address], USAEosinophils (Bld) [#/Vol]0.4 10*3/uLNormal0.0-0.5The [facility] HospitalComment on above:Performed By: #### [id number] #### [facility] [address] [address], USAEosinophils/100 WBC (Bld)4.3 %Normal0.0-6.0The [facility] HospitalComment on above:Performed By: #### [id number] #### [facility] [address] [place] [place] [address], USAErythrocyte distribution width (RBC) [Ratio]15.9 %High 11.5-15.0The [facility] HospitalComment on above:Performed By: #### [id number] #### [facility] [address] [facility] [address], USAHematocrit (Bld) [Volume fraction]31.6 %Low39.0-50.0The [facility] HospitalComment on above:Performed By: #### [id number] #### [facility] [address] [place] [place] [address], USAHemoglobin (Bld) [Mass/Vol]10.0 g/dLLow13.0-17.0The [facility] HospitalComment on above:Performed By: #### [id number] #### [facility] [address] [place] [address], USAIMMATURE GRANS0.8 %Normal0.0-1.0The [facility] HospitalComment on above:Performed By: #### [id number] #### [facility] [address] [place] [address], USALymphocytes (Bld) [#/Vol]1.6 10*3/uLNormal1.2-4.0The [facility] HospitalComment on above:Performed By: #### [id number] #### [facility] [address] [place] [address], [facility] CARE SERVICESLymphocytes/100 WBC (Bld)16.8 %Low20.0-45.0The [facility] HospitalComment on above:Performed By: #### [id number] #### [facility] [address] [place] [address], [facility]ARE SERVICESMCH (RBC) [Entitic mass]28.7 ylEsvdtl79.0-33.0The [facility] HospitalComment on above:Performed By: #### [id number] #### [facility] [address] [place] [address], [facility] SERVICESMCHC (RBC) [Mass/Vol]31.6 g/dLLow32.0-35.0The [facility] HospitalComment on above:Performed By: #### [id number] #### [facility] [address] [address], [facility]ARE SERVICESMCV (RBC) [Entitic vol]90.5 lXLgqykm32.0-98.0The [facility] HospitalComment on above:Performed By: #### [id number] #### [facility] [address] [place] [address], USAMonocytes (Bld) [#/Vol]0.8 10*3/uLNormal0.1-1.0The [facility] HospitalComment on above:Performed By: #### [id number] #### [facility] [address] [place] [address], USAMONOS9.0 %Normal5.0-12.0The [facility] HospitalComment on above:Performed By: #### [id number] #### [facility] [address] [place] [address], USANeutrophils/100 WBC (Bld)68.7 %Zvrgkr73.0-72.0The [facility] HospitalComment on above:Performed By: #### [id number] #### [facility] [address] [place] [address], USANucleated RBC/100 WBC (Bld) [Ratio]0 %Normal0-0The [facility] HospitalComment on above:Performed By: #### [id number] #### [facility] [address] [address], USAPLAT RDI993 10*3/kRDowedp626-041Wqq [facility] HospitalComment on above:Performed By: #### [id number] #### [facility] [address] [place] [address], USARBC (Bld) [#/Vol]3.49 10*6/uLLow4.20-5.70The [facility] HospitalComment on above:Performed By: #### [id number] #### [facility] [address] [address], USAWBC (Bld) [#/Vol]9.29 10*3/uLNormal4.00-10.60The [facility] HospitalComment on above:Performed By: #### [id number] #### [facility] [address] [place] [address], USAIMMUNOGLOBULIN Jovany 84-51-3794OGZuqdzmPpmThe Jewish HospitalComment on above:Result Comment: Test Performed by [facility] [place] [address] - Released 05/27/2022 12:45IMMUNOGLOBULIN E308 IU/mLHigh<101Norwalk Memorial HospitalTHYROID-STIMULATING IMMUNOGLOBULINon 72-56-5405Kcmudnb Sim Immunoglobulin<0.23Zczqyo5.00-0.55The [facility] [facility] Comment on above:Performed By: #### CBC #### [facility] [address] [place] [address] Dr. Benito SchwartzTHYROTROPIN RECEPTOR ABon 61-57-1803Xmzzaykjbny Receptor Ab, Serum<1.48Sznvgg6.00-1.75The [facility] HospitalComment on above:Performed By: #### CBC #### [facility] [address] [place] [address] Dr. Benito SchwartzPTH INTACTon 60-91-6358WHE, Urhptu12 pg/bMSunflr90-97Qqc [facility] HospitalComment on above:Performed By: #### CBC #### [facility] [address] [place] [address] Dr. Benito SchwartzT3, TOTAL (TRIIODOTHYRONINE)on 45-39-9260Y9, TOTAL80 ng/dLNormal 71-180The [facility] HospitalComment on above:Performed By: #### URTPCR #### [facility] [address] [place] [address] Dr. Benito Kimble D 25-[place] LABCORPon 41-91-5102Bnmvoof D, 25-Pcmyctq15.3 ng/mL Vpqnsv66.0-100.0The [facility] HospitalComment on above:Result Comment: Vitamin D deficiency has been defined by the [place] of [employer] and an Endocrine Society practice guideline as a level of serum 25-OH vitamin D less than 20 ng/mL (1,2). The Endocrine Society went on to further define vitamin D insufficiency as a level between 21 and 29 ng/mL (2). 1. IOM ([place] of [employer]). 2010. Dietary reference intakes for calcium and D. [place]: The National Academies Press. 2. Annamarie MF, Milena LE, Jamin BURGESS, et al. Evaluation, treatment, and prevention of vitamin D deficiency: an Endocrine Society clinical practice guideline. JCEM. 2010; 96(7):1911-30.Performed By: #### URTPCR #### [facility] [address] [place] [address] Dr. Benito Love AUTO DIFFon 08-08-6115LPYY #0.0 103/ulNormal0.0-0.1The [facility] HospitalComment on above:Performed By: #### CBC #### [facility] [address] [place] [address] Dr. Benito SchwartzBasophils/100 WBC (Bld)0.2 %Normal0.2-2.0[facility] Comment on above:Performed By: #### CBC #### [facility] [address] [place] [address] Dr. Benito Deluna #0.4 103/ulNormal0.0-0.7The [facility] HospitalComment on above: Performed By: #### CBC #### [facility] [address] [place] [address] Dr. Benito Wanosinophils/100 WBC (Bld)4.4 %Normal0.9-7.0[facility] Comment on above:Performed By: #### CBC #### [facility] [address] [place] [address] Dr. Benito Wanrythrocyte distribution width (RBC) [Ratio]15.0 %Ltzahl31.0-15.0 [facility] CenterComment on above:Performed By: #### CBC #### [facility] [address] [place] [address] Dr. Benito SchwartzHematocrit (Bld) [Volume fraction]29.8 %Critically low42.0-54.0 [facility] CenterComment on above:Performed By: #### CBC #### [facility] [address] [place] [address] Dr. Benito SchwartzHemoglobin (Bld) [Mass/Vol]9.7 g/dLCritically low14.0-18.0The [facility] HospitalComment on above:Performed By: #### CBC #### [facility] [address] [place] [address] Dr. Benito Carias #0.06 10e3/ulCritically high0.00-0.03The [facility] Comment on above:Performed By: #### CBC #### [facility] [address] [place] [address] Dr. Benito Carias %0.7 %Critically high0.0-0.5The [facility] HospitalComment on above:Performed By: #### CBC #### [facility] [address] [place] [address] Dr. Benito Negrete #1.9 103/ulNormal1.2-3.8The [facility] HospitalComment on above:Performed By: #### CBC #### [facility] [address] [place] [address] Dr. Benito Whitthocytes/100 WBC (Bld)21.1 %Ytcbbo37.5-60.0The [facility] HospitalComment on above:Performed By: #### CBC #### [facility] [address] [place] [address] Dr. Benito Kessler DIFF REQNONormalThe [facility] HospitalComment on above: Performed By: #### CBC #### [facility] [address] [place] [address] Dr. Benito Quarles (RBC) [Entitic mass]29.0 vcMltqou92.9-34.0The [facility] HospitalComment on above:Performed By: #### CBC #### [facility] [address] [place] [address] Dr. Benito aLwson (RBC) [Mass/Vol]32.6 g/hKLgkgzz74.9-35.2The [facility] HospitalComment on above:Performed By: #### CBC #### [facility] [address] [place] [address] Dr. Benito LawsonV (RBC) [Entitic vol]89.0 eNPpzxmo13.0-94.0The [facility] HospitalComment on above:Performed By: #### CBC #### [facility] [address] [place] [address] Dr. Benito Colin #0.9 103/ulCritically high0.3-0.8The [facility] Comment on above:Performed By: #### CBC #### [facility] [address] [place] [address] Dr. Benito Francoocytes/100 WBC (Bld)9.9 %Normal1.7-12.0[facility] Comment on above:Performed By: #### CBC #### [facility] [address] [place] [address] Dr. Benito Herrera #5.8 103/ulNormal1.4-6.5The [facility] HospitalComment on above:Performed By: #### CBC #### [facility] [address] [place] [address] Dr. Benito Herediautrophils/100 WBC (Bld)63.7 %Nhweky73.0-75.0The [facility] HospitalComment on above:Performed By: #### CBC #### [facility] [address] [place] [address] Dr. Benito Lang mean volume (Bld) [Entitic vol]8.7 fLCritically low 9.5-13.5The [facility] HospitalComment on above:Performed By: #### CBC #### [facility] [address] [place] [address] Dr. Benito CeballosT253 103/trJwvaoz587-722Xyg [facility] HospitalComment on above: Performed By: #### CBC #### [facility] [address] [place] [address] Dr. Benito SchwartzRBC3.35 106/ulCritically low4.70-6.10The [facility] HospitalComment on above:Performed By: #### CBC #### [facility] [address] [place] [address] Dr. Benito SchwartzWBC9.1 103/ulNormal4.0-11.0The [facility] HospitalComment on above: Performed By: #### CBC #### [facility] [address] [place] [address] Dr. Benito SchwartzFREE T4on 88-38-3433Eaqy T4 [Mass/Vol]1.25 ng/dLNormal0.76-1.46 The [facility] HospitalComment on above:Performed By: #### VITAD #### [facility] [address] [place] [address] Dr. Benito SchwartzMAGNESIUMon 66-49-3530Avjwbpqvn [Mass/Vol]2.1 mg/dLNormal1.8-2.4 The [facility] HospitalComment on above:Performed By: #### FT4 #### [facility] [address] [place] [address] Dr. Benito SchwartzPHOSPHORUSon 81-33-0345Vaobeacni [Mass/Vol]4.2 mg/dLNormal2.6-4.7 The [facility] HospitalComment on above:Performed By: #### FT4 #### [facility] [address] [place] [address] Dr. Benito SchwartzPROF CHEM 8 (BAS METB)on 12-48-0207Qfvfe gap [Moles/Vol]13.4 mmol/LNormalThe [facility] HospitalComment on above:Performed By: #### FT4 #### [facility] [address] [place] [address] Dr. Benito SchwartzCalcium [Mass/Vol]9.1 mg/dLNormal8.5-10.1The [facility] Comment on above:Performed By: #### FT4 #### [facility] [address] [place] [address] Dr. Benito SchwartzChloride [Moles/Vol]103 mmol/YKvptlr26-997Qsv [facility] Comment on above:Performed By: #### FT4 #### [facility] [address] [place] [address] Dr. Yilan ChangCO2 [Moles/Vol]28.6 mmol/PCwghuj89.0-32.0The [facility] Comment on above:Performed By: #### FT4 #### [facility] [address] [place] [address] Dr. Benito SchwartzCreatinine [Mass/Vol]2.30 mg/dLCritically high0.70-1.30The [facility] HospitalComment on above:Performed By: #### FT4 #### [facility] [address] [place] [address] Dr. Benito WanGFR-AF NHYXRAIP85 mL/min/1.94d9Unkrwtrata low>=60The [facility] HospitalComment on above:Performed By: #### FT4 #### [facility] [address] [place] [address] Dr. Benito WanGFR-NON AF SDCCXFME72 mL/min/1.12d4Szbcnvlaji low>=60The [facility] HospitalComment on above:Performed By: #### FT4 #### [facility] [address] [place] [address] Dr. Benito SchwartzGlucose [Mass/Vol]123 mg/dLCritically duqq59-384Zix [facility] HospitalComment on above:Performed By: #### FT4 #### [facility] [address] [place] [address] Dr. Benito SchwartzPotassium [Moles/Vol]4.0 mmol/LNormal3.5-5.1[facility] Comment on above:Performed By: #### FT4 #### [facility] [address] [place] [address] Dr. Benito SchwartzSodium [Moles/Vol]141 mmol/QDcqawr503-858Qoc [facility] Comment on above:Performed By: #### FT4 #### [facility] [address] [place] [address] Dr. Benito SchwartzUrea nitrogen [Mass/Vol]51.0 mg/dLCritically high7.0-18.0The [facility] HospitalComment on above:Performed By: #### FT4 #### [facility] [address] [place] [address] Dr. Benito Andrade nitrogen/Creatinine [Mass ratio]22.2 mg/mgNormalThe [facility] HospitalComment on above:Performed By: #### FT4 #### [facility] [address] [place] [address] Dr. Benito Kelley 03-72-1930QVL Qnm[IU]/LCritically low0.358-3.740[facility] CenterComment on above:Performed By: #### CBC #### [facility] [address] [place] [address] Dr. Benito Edwards RANDOMgibson 97-68-1514Bzrsqevjs Ql (U)NegativeNormalNEGATIVEAdena [facility] Medical CenterComment on above:Performed By: #### URTPCR #### [facility] [address] [place] [address] Dr. Benito SchwartzClarity (U)CLEARNormalCLEARAdena [facility]ayette Medical CenterComment on above: Performed By: #### URTPCR #### [facility] [address] [place] [address] Dr. Benito Mendietalor (U)LT. YELLOWNormalYLouis Stokes Cleveland VA Medical CenterComment on above:Performed By: #### URTPCR #### [facility] [address] [place] [address] Dr. Benito SchwartzGlucose Ql (U)NegativeNormalNEGATIVEAdena [facility] Medical CenterComment on above:Performed By: #### URTPCR #### [facility] [address] [place] [address] Dr. Benito SchwartzHemoglobin Ql (U)NegativeNormalNEGATIVEOhiohealth Hardin [facility] on above:Performed By: #### URTPCR #### [facility] [address] [place] [address] Dr. Benito SchwartzKetones Ql (U)NegativeNormalNEGATIVEAdena [facility] Medical CenterComment on above:Performed By: #### URTPCR #### [facility] [address] [place] [address] Dr. Benito SchwartzLEUKOCYTESNegativeNormalNEGATIVEThe [facility] HospitalComment on above:Performed By: #### URTPCR #### [facility] [address] [place] [address] Dr. Benito Lombardi Ql (U)NegativeNormalNEGATIVEThe [facility] HospitalComment on above:Performed By: #### URTPCR #### [facility] [address] [place] [address] Dr. Benito SchwartzpH (U)5.5 [pH]Normal5-9The [facility] HospitalComment on above: Performed By: #### URTPCR #### [facility] [address] [place] [address] Dr. Benito SchwartzSPEC GRAVITY1.006Jfedvl2.005-<=1.025The [facility] HospitalComment on above:Performed By: #### URTPCR #### [facility] [address] [place] [address] Dr. Benito Edwards PROTEINNegativeNormalNEGATIVE/ TRACEThe [facility] Comment on above:Performed By: #### URTPCR #### [facility] [address] [place] [address] Dr. Benito Alvarez Qn (U)0.2 {Jagruti'U}/dLNormal0.2 - 1.0The [facility] HospitalComment on above:Performed By: #### URTPCR #### [facility] [address] [place] [address] Dr. Benito Holder T PROTEIN CREAT RATIOon 49-59-9354Toaveii (U) [Mass/Vol] 18.3 mg/dLCritically high<=12.0The [facility] HospitalComment on above:Performed By: #### URTPCR #### [facility] [address] [place] [address] Dr. Benito Bermudez PROT CREAT RAT0.39NormalThe [facility] HospitalComment on above: Performed By: #### URTPCR #### [facility] [address] [place] [address] Dr. Benito Holder CREAT47.44 mg/gLZvhkai03.00-300.00The [facility] Comment on above:Performed By: #### URTPCR #### [facility] [address] [place] [address] Dr. Benito SchwartzHEMOGLOBINon 36-55-5874Ypdpnwdojt (Bld) [Mass/Vol]9.6 g/dL Critically low14.0-18.0The [facility] HospitalComment on above:Performed By: #### FT4, PSASC #### [facility] [address] [place] [address] Dr. Benito SchwartzNM THY SCAN W Lenin 36-82-3823GE THY SCAN W UPTEXAMINATION: NM THY SCAN W UPT HISTORY: Hyperthyroidism [...] Electronically authenticated by: JJ HI Date: 2022-04-28 09:05[facility] HospitalT[facility], TOTAL (TRIIODOTHYRONINE)on 84-35-6858X1, PSAOA930 ng/dL Fcrqts92-178Maz [facility] HospitalComment on above:Performed By: #### B12FOL, FETIBC #### [facility] [address] [place] [address] Dr. Benito Linton T3on 78-49-5604QYVS T36.07 pg/mlLCritically high2.18-3.98The [facility] HospitalComment on above:Performed By: #### TSH, FT3, BMP #### [facility] [address] [place] [address] Dr. Benito Linton T4on 39-84-7257Snwx T4 [Mass/Vol]2.62 ng/dLCritically high 0.76-1.46The [facility] HospitalComment on above:Performed By: #### TSH, FT3, BMP #### [facility] [address] [address] [address] Benito BuckleyF CHEM 8 (BAS METB)on 51-40-5027Pkzql gap [Moles/Vol]13.5 mmol/LNormalThe [facility] HospitalComment on above:Performed By: #### B12FOL, FETIBC #### [facility] [address] [address] [address] Benito SchwartzCalcium [Mass/Vol]9.9 mg/dLNormal8.5-10.1The [facility] Comment on above:Performed By: #### B12FOL, FETIBC #### [facility] [address] [place] [address] Dr. Benito SchwartzChloride [Moles/Vol]105 mmol/FGhtzlx41-024GynAden[facility] Comment on above:Performed By: #### B12FOL, FETIBC #### [facility] [address] [place] [address] Dr. Benito SchwartzCO2 [Moles/Vol]26.5 mmol/GAxalkf95.0-32.0[facility] Comment on above:Performed By: #### B12FOL, FETIBC #### [facility] [address] [place] [address] Dr. Benito SchwartzCreatinine [Mass/Vol]2.33 mg/dLCritically high0.70-1.30The [facility] HospitalComment on above:Performed By: #### B12FOL, FETIBC #### [facility] [address] [place] [address] Dr. Oliver ChangEGFR-AF EIEKUMSA21 mL/min/1.99q5Twbeseuaeb low>=60The [facility] Hospitalment on above:Performed By: #### B12FOL, FETIBC #### [facility] [address] [place] [address] Dr. Benito WanGFR-NON AF WUAJFCZF93 mL/min/1.30e1Zfijdcdwlv low>=60The [facility] HospitalComment on above:Performed By: #### B12FOL, FETIBC #### [facility] [address] [place] [address] Dr. Benito SchwartzGlucose [Mass/Vol]104 mg/kSIjpeqy11-298DzsAdena [facility] Center Comment on above:Performed By: #### B12FOL, FETIBC #### [facility] [address] [place] [address] Dr. Benito SchwartzPotassium [Moles/Vol]5.0 mmol/LNormal3.5-5.1[facility] Comment on above:Performed By: #### B12FOL, FETIBC #### [facility] [address] [place] [address] Dr. Benito SchwartzSodium [Moles/Vol]140 mmol/FZwcyah513-514ApeAdena [facility] Center Comment on above:Performed By: #### B12FOL, FETIBC #### [facility] [address] [place] [address] Dr. Benito SchwartzUrea nitrogen [Mass/Vol]60.0 mg/dLCritically high7.0-18.0[facility] CenterComment on above:Performed By: #### B12FOL, FETIBC #### [facility] [address] [place] [address] Dr. Benito Andrade nitrogen/Creatinine [Mass ratio]25.8 mg/mgNoalThMercy HospitalComment on above:Performed By: #### B12FOL, FETIBC #### [facility] [address] [place] [address] Dr. Benito Kelley 92-20-1599IDI Qnm[IU]/LCritically low0.358-3.740[facility] CenterComment on above:Performed By: #### TSH, FT3, BMP #### [facility] [address] [place] [address] Dr. Benito Dacosta METABOLIC PANELon 30-98-4728Lacwytw [Mass/Vol]9.1 mg/dL Normal8.6-10.3TOhioHealth Nelsonville Health CenterComment on above:Order Comment: No: Do not add to previous drawPerformed By: #### [id number], [id number] #### [facility] [address] [place] [address], USAChloride [Moles/Vol]106 mmol/XUirsps44-578Cpb [facility] HospitalComment on above:Order Comment: No: Do not add to previous drawPerformed By: #### [id number], 81090 #### [facility] [address] [place] [address], [place]ACO2 [Moles/Vol]25 mmol/XOixwbe27-82Kpq [facility] HospitalComment on above:Order Comment: No: Do not add to previous draw Performed By: #### [id number], [id number] #### [facility] [address] [place] [address], USACreatinine [Mass/Vol]2.12 mg/dLHigh0.70-1.30The [facility] HospitalComment on above:Order Comment: No: Do not add to previous drawPerformed By: #### [id number], 16956 #### [facility] [address] [place] [address], USAeGFR- Guhwixpd75 ml/min/1.73sq mAbnormal>60The [facility] HospitalComment on above:Order Comment: No: Do not add to previous drawResult Comment: Calculation may not be valid for patients over 70 yearsPerformed By: #### 37979, 72211 #### [facility] [address] [place] [address], USAeGFR- non- Htnyqgdu67 ml/min/1.73sq mAbnormal>60The [facility] HospitalComment on above:Order Comment: No: Do not add to previous drawResult Comment: Calculation may not be valid for patients over 70 yearsPerformed By: #### [id number], 08373 #### [facility] [address] [place] [address], USAGlucose [Mass/Vol]93 mg/vWEubdmy93-568Uxs [facility] HospitalComment on above:Order Comment: No: Do not add to previous drawPerformed By: #### 38610, 46916 #### [facility] [address] [place] [address], USAPotassium [Moles/Vol]3.9 mmol/LNormal3.5-5.1The [facility] HospitalComment on above:Order Comment: No: Do not add to previous drawPerformed By: #### 55962, 01696 #### [facility] [address] [place] [address], USASodium [Moles/Vol]141 mmol/NNjeuko271-602Vrf [facility] HospitalComment on above:Order Comment: No: Do not add to previous drawPerformed By: #### 26780, 09559 #### [facility] [address] [place] [address], USAUrea nitrogen [Mass/Vol]56 mg/dLHigh7-25The [facility] HospitalComment on above:Order Comment: No: Do not add to previous drawPerformed By: #### 57622, 82822 #### [facility] [address] [place] [address], USACBC COMPLETE BLOOD COUNTon 99-46-4289Atqoviwgoqm distribution width (RBC) [Ratio]13.6 %Cmxlyh22.5-15.0The [facility] HospitalComment on above:Order Comment: No: Do not add to previous draw Performed By: #### [id number] #### [facility] [address] [place] [address], USAHematocrit (Bld) [Volume fraction]26.2 %Low39.0-50.0The [facility] HospitalComment on above:Order Comment: No: Do not add to previous drawPerformed By: #### [id number] #### [facility] [address] [place] [address], USAHemoglobin (Bld) [Mass/Vol]8.7 g/dLLow13.0-17.0The [facility] HospitalComment on above:Order Comment: No: Do not add to previous drawPerformed By: #### 72415 #### [facility] [address] [place] [address], [facility] (RBC) [Entitic mass]29.3 nrHemmfq38.0-33.0The [facility] HospitalComment on above:Order Comment: No: Do not add to previous drawPerformed By: #### [id number] #### [facility] [address] [place] [address], [facility] SERVICESMCHC (RBC) [Mass/Vol]33.2 g/zVNgmcub38.0-35.0The [facility] HospitalComment on above:Order Comment: No: Do not add to previous drawPerformed By: #### [id number] #### [facility] [address] [place] [address], [facility]ARE SERVICESMCV (RBC) [Entitic vol]88.2 gLFkkrrc71.0-98.0The [facility] HospitalComment on above:Order Comment: No: Do not add to previous drawPerformed By: #### [id number] #### [facility] [address] [place] [address], USANucleated RBC/100 WBC (Bld) [Ratio]0 %Normal0-0The [facility] HospitalComment on above:Order Comment: No: Do not add to previous drawPerformed By: #### [id number] #### [facility] [address] [place] [address], USAPLAT OII360 10*3/xNUitwby446-819Cma [facility] HospitalComment on above:Order Comment: No: Do not add to previous draw Performed By: #### [id number] #### [facility] [address] [place] [address], USARBC (Bld) [#/Vol]2.97 10*6/uLLow4.20-5.70The [facility] HospitalComment on above:Order Comment: No: Do not add to previous drawPerformed By: #### [id number] #### [facility] [address] [place] [address], USAWBC (Bld) [#/Vol]5.20 10*3/uLNormal4.00-10.60The [facility] HospitalComment on above:Order Comment: No: Do not add to previous drawPerformed By: #### [id number] #### [facility] [address] [place] [address], USAMAGNESIUM BLOODon 65-39-4309Prxojkaje [Mass/Vol]2.2 mg/dL Normal1.9-2.7The [facility] HospitalComment on above:Order Comment: No: Do not add to previous drawPerformed By: #### 96819, 67203 #### [facility] [address] [place] [address], USAPOC GLUCOSE LABon 09-99-7731Qgfijdz [Mass/Vol]99 mg/dL Agfysa22-767Zkt [facility] HospitalComment on above:Performed By: #### 88593 #### [facility] [address] [place] [address], USABASIC METABOLIC PANELon 90-19-1247Xxfehyq [Mass/Vol]9.1 mg/dLNormal8.6-10.3The [facility] HospitalComment on above:Order Comment: No: Do not add to previous drawPerformed By: #### 82887 #### [facility] [address] [place] [address], USAChloride [Moles/Vol]106 mmol/PRofrip60-735Jpz [facility] HospitalComment on above:Order Comment: No: Do not add to previous drawPerformed By: #### [id number] #### [facility] [address] [place] [address], USACO2 [Moles/Vol]25 mmol/OIiqauo20-58Zbk [facility] HospitalComment on above:Order Comment: No: Do not add to previous draw Performed By: #### 65526 #### [facility] [address] [place] [address], USACreatinine [Mass/Vol]2.07 mg/dLHigh0.70-1.30The [facility] HospitalComment on above:Order Comment: No: Do not add to previous drawPerformed By: #### [id number] #### [facility] [address] [place] [address], USAeGFR- Qjavcqpc38 ml/min/1.73sq mAbnormal>60The [facility] HospitalComment on above:Order Comment: No: Do not add to previous drawResult Comment: Calculation may not be valid for patients over 70 yearsPerformed By: #### 62884 #### [facility] [address] [place] [address], USAeGFR- non- Lltokdae51 ml/min/1.73sq mAbnormal>60The [facility] HospitalComment on above:Order Comment: No: Do not add to previous drawResult Comment: Calculation may not be valid for patients over 70 yearsPerformed By: #### 60028 #### [facility] [address] [place] [address], USAGlucose [Mass/Vol]94 mg/xGWxhkmt64-523Vgx [facility] HospitalComment on above:Order Comment: No: Do not add to previous drawPerformed By: #### 29405 #### [facility] [address] [place] [address], USAPotassium [Moles/Vol]3.9 mmol/LNormal3.5-5.1The [facility] HospitalComment on above:Order Comment: No: Do not add to previous drawPerformed By: #### 59031 #### [facility] [address] [place] [address], USASodium [Moles/Vol]144 mmol/UDumwdx017-566Kzh [facility] HospitalComment on above:Order Comment: No: Do not add to previous drawPerformed By: #### 21695 #### [facility] [address] [place] [address], USAUrea nitrogen [Mass/Vol]54 mg/dLHigh7-25The [facility] HospitalComment on above:Order Comment: No: Do not add to previous drawPerformed By: #### 94509 #### [facility] [address] [place] [address], USACBC COMPLETE BLOOD COUNTon [id number] distribution width (RBC) [Ratio]13.5 %Ykrykk18.5-15.0The [facility] HospitalComment on above:Order Comment: No: Do not add to previous draw Performed By: #### 86866 #### [facility] [address] [place] [address], USAHematocrit (Bld) [Volume fraction]27.5 %Low39.0-50.0The [facility] HospitalComment on above:Order Comment: No: Do not add to previous drawPerformed By: #### 88019 #### [facility] [address] [place] [address], USAHemoglobin (Bld) [Mass/Vol]8.9 g/dLLow13.0-17.0The [facility] HospitalComment on above:Order Comment: No: Do not add to previous drawPerformed By: #### 91629 #### [facility] [address] [address], USAMCH (RBC) [Entitic mass]29.2 jmKxplqv40.0-33.0The [facility] HospitalComment on above:Order Comment: No: Do not add to previous drawPerformed By: #### 36239 #### [facility] [address] [place] [address], [facility] SERVICESMCHC (RBC) [Mass/Vol]32.4 g/iFTebtcc42.0-35.0The [facility] HospitalComment on above:Order Comment: No: Do not add to previous drawPerformed By: #### [id number] #### [facility] [address] [place] [address], [facility] SERVICESMCV (RBC) [Entitic vol]90.2 pNXnnkxy93.0-98.0The [facility] HospitalComment on above:Order Comment: No: Do not add to previous drawPerformed By: #### 02570 #### [facility] [address] [place] [id number], USANucleated RBC/100 WBC (Bld) [Ratio]0 %Normal0-0The [facility] HospitalComment on above:Order Comment: No: Do not add to previous drawPerformed By: #### 81820 #### [facility] [address] [place] [address], USAPLAT [id number] 10*3/aTAghxeg346-494Mir [facility] HospitalComment on above:Order Comment: No: Do not add to previous draw Performed By: #### 23631 #### [facility] [address] [place] [address], [facility] SERVICESRBC (Bld) [#/Vol]3.05 10*6/uLLow4.20-5.70The [facility] HospitalComment on above:Order Comment: No: Do not add to previous drawPerformed By: #### 63845 #### [facility] [address] [place] [address], [facility] SERVICESWBC (Bld) [#/Vol]6.02 10*3/uLNormal4.00-10.60The [facility] HospitalComment on above:Order Comment: No: Do not add to previous drawPerformed By: #### 78023 #### [facility] [address] [place] [address], [facility] SERVICESCardiovascular Lab Reporton [id number] Lab ReportUnToledo Hospital Patient Name: Delano Oliver [facility] MR #: [id number] Physician: Sriram Rick, Department of M.D. Medicine Service Date: 03/31/2022 Division of Birthdate: 1940 Cardiology Room #: 3AB 327142 Adult Cardiovascular Services [facility] [address] [place], [place] [address] Cardiovascular Laboratory Report FINAL IMPRESSIONS: 1. Moderately [...] right internal jugular vein was obtained. A 6-Bulgarian 11 cm sheath was inserted without difficulty. [...] Rick M.D. Date Trans: 04/01/2022 02:03 A/hans DN_JN:[id number] cc: Yas Linda D.O. [address] [place] [id number] Health Behavioral Medical CenterHEMOGLOBIN A1Con 01-70-0436Csbrcxt [Moles/Vol]137 mmol/LNormalThe [facility] HospitalComment on above:Order Comment: If not done in EDNo: Do not add to previous drawPerformed By: #### 60992 #### [facility] [address] [facility] [place] [address], ATSOlB2t (Bld) [Mass fraction]6.4 %High4.0-6.0The [facility] HospitalComment on above:Order Comment: If not done in EDNo: Do not add to previous drawPerformed By: #### 19049 #### [facility] [address] [facility] [place] [address], USAMAGNESIUM BLOODon 14-70-5722Facscmsmr [Mass/Vol]2.2 mg/dL Normal1.9-2.7The [facility] HospitalComment on above:Order Comment: No: Do not add to previous drawPerformed By: #### 90381 #### [facility] [address] [place] [address], USAPOC GLUCOSE LABon [id number] [Mass/Vol]114 mg/dLHigh 70-100The [facility] HospitalComment on above:Performed By: #### 62670 #### [facility] [address] [place] [address], USAGlucose [Mass/Vol]117 mg/nVIklx13-181Oap [facility] HospitalComment on above:Performed By: #### 09118 #### [facility] [address] [place] [address], USAGlucose [Mass/Vol]139 mg/aIBayr05-327Isx [facility] HospitalComment on above:Performed By: #### 74815 #### [facility] [address] [place] [address], USAGlucose [Mass/Vol]98 mg/jARdlbkz39-433Njm [facility] HospitalComment on above:Performed By: #### 23402 #### [facility] [address] [place] [address], USABASIC METABOLIC PANELon 44-02-0571Xpclxdk [Mass/Vol]9.1 mg/dLNormal8.6-10.3The [facility] HospitalComment on above:Order Comment: No: Do not add to previous drawPerformed By: #### 81233, 44150, 73517, 63020, 76089 #### [facility] [address] [place] [address], USAChloride [Moles/Vol]104 mmol/ZLnxnsd18-157Aut [facility] HospitalComment on above:Order Comment: No: Do not add to previous drawPerformed By: #### 86649, 28889, 50853, 95295, 25141 #### [facility] [address] [place] [address], USACO2 [Moles/Vol]27 mmol/HNxcigt49-94Xhf [facility] HospitalComment on above:Order Comment: No: Do not add to previous draw Performed By: #### 02791, 73439, 86453, 55930, 10147 #### [facility] [address] [place] [address], USACreatinine [Mass/Vol]2.59 mg/dLHigh0.70-1.30The [facility] HospitalComment on above:Order Comment: No: Do not add to previous drawPerformed By: #### 18659, 22276, 56903, 90490, 68054 #### [facility] [address] [place] [address], USAeGFR- Edkysezr41 ml/min/1.73sq mAbnormal>60The [facility] HospitalComment on above:Order Comment: No: Do not add to previous drawResult Comment: Calculation may not be valid for patients over 70 yearsPerformed By: #### 52123, 59579, 97598, 11724, 11341 #### [facility] [address] [place] [address], USAeGFR- non- Gshrqthm77 ml/min/1.73sq mAbnormal>60The [facility] HospitalComment on above:Order Comment: No: Do not add to previous drawResult Comment: Calculation may not be valid for patients over 70 yearsPerformed By: #### 45214, 36487, 54777, 29104, 83429 #### [facility] [address] [place] [address], USAGlucose [Mass/Vol]90 mg/uJAjyilk34-438Pqr [facility] HospitalComment on above:Order Comment: No: Do not add to previous drawPerformed By: #### 26374, 08624, 10183, 03763, 01583 #### [facility] [address] [place] [address], USAPotassium [Moles/Vol]4.2 mmol/LNormal3.5-5.1The [facility] HospitalComment on above:Order Comment: No: Do not add to previous drawPerformed By: #### 39824, 76373, 32031, 64254, 55859 #### [facility] [address] [place] [address], USASodium [Moles/Vol]141 mmol/UWxwprv451-569Ssa [facility] HospitalComment on above:Order Comment: No: Do not add to previous drawPerformed By: #### 80737, 72451, 05291, 46903, 32371 #### [facility] [address] [place] [address], USAUrea nitrogen [Mass/Vol]55 mg/dLHigh7-25The [facility] HospitalComment on above:Order Comment: No: Do not add to previous drawPerformed By: #### 83089, 84205, 27414, 10225, 66997 #### [facility] [address] [place] [address], USACBC COMPLETE BLOOD COUNTon 86-78-6488Jyvvwvedcly distribution width (RBC) [Ratio]13.6 %Xfgjvo83.5-15.0The [facility] HospitalComment on above:Order Comment: No: Do not add to previous draw Performed By: #### 80125 #### [facility] [address] [place] [address], USAHematocrit (Bld) [Volume fraction]27.1 %Low39.0-50.0The [facility] HospitalComment on above:Order Comment: No: Do not add to previous drawPerformed By: #### 49450 #### [facility] [address] [place] [address], USAHemoglobin (Bld) [Mass/Vol]8.7 g/dLLow13.0-17.0The [facility] HospitalComment on above:Order Comment: No: Do not add to previous drawPerformed By: #### 92093 #### [facility] [address] [place] [address], [facility] (RBC) [Entitic mass]28.8 hyRyddtv06.0-33.0The [facility] HospitalComment on above:Order Comment: No: Do not add to previous drawPerformed By: #### 01116 #### [facility] [address] [place] [address], [facility] ED[facility]DHC (RBC) [Mass/Vol]32.1 g/pPPuevlc71.0-35.0The [facility] HospitalComment on above:Order Comment: No: Do not add to previous drawPerformed By: #### 72558 #### [facility] [address] [place] [address], [facility] (RBC) [Entitic vol]89.7 xHXorwxp17.0-98.0The [facility] HospitalComment on above:Order Comment: No: Do not add to previous drawPerformed By: #### 12320 #### [facility] [address] [address], [facility] SERVICESNucleated RBC/100 WBC (Bld) [Ratio]0 %Normal0-0The [facility] HospitalComment on above:Order Comment: No: Do not add to previous drawPerformed By: #### 05977 #### [facility] [address] [place] [address], USAPLAT JUL423 10*3/hPGiwbdr564-590Qdr [facility] HospitalComment on above:Order Comment: No: Do not add to previous draw Performed By: #### 63941 #### [facility] [address] [address], [facility] C[facility] SERVICESRBC (Bld) [#/Vol]3.02 10*6/uLLow4.20-5.70The [facility] HospitalComment on above:Order Comment: No: Do not add to previous drawPerformed By: #### 50001 #### [facility] [address] [place] [address], USAWBC (Bld) [#/Vol]5.93 10*3/uLNormal4.00-10.60The [facility] HospitalComment on above:Order Comment: No: Do not add to previous drawPerformed By: #### 13649 #### [facility] [address] [place] [address], USAFREE T4on 01-66-2528Mmly T4 [Mass/Vol]4.55 ng/dLHigh 0.71-1.85The [facility] HospitalComment on above:Performed By: #### 85110 #### [facility] [address] [place] [address], USAMAGNESIUM BLOODon 55-56-8593Cheajyzrl [Mass/Vol]2.3 mg/dL Normal1.9-2.7The [facility] HospitalComment on above:Order Comment: No: Do not add to previous drawPerformed By: #### 36236, 92821, 66378, 33500, 59739 #### [facility] [address] [place] [address], USAPHOSPHORUS BLOODon 72-53-3507Hgrxpryic [Mass/Vol]5.4 mg/dL High2.5-5.0The [facility] HospitalComment on above:Order Comment: No: Do not add to previous drawPerformed By: #### 60908, 96054, 12481, 48043, 67350 #### [facility] [address] [address], USAPOC GLUCOSE LABon 66-40-8320Jindmhp [Mass/Vol]161 mg/dLHigh 70-100The [facility] HospitalComment on above:Performed By: #### 45458 #### [facility] [address] [place] [address], USAGlucose [Mass/Vol]108 mg/bKIbza80-369Jfs [facility] HospitalComment on above:Performed By: #### 69987 #### [address] [place] [address], [facility] SERVICESPO SARS COV2 ANTIGEN NEGATIVEon 62-47-7081ELZ SARS COV2 ANTIGEN NEGNegativeNormalNEGATIVEThe [facility] HospitalComment on above:Result Comment: Negative results should be treated as presumptive and [...] antigen from SARS-CoV-2 in direct nasopharyngeal swab (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) specimens from individuals who are suspected of [...] Waiver, Certificate of Compliance, or Certificate of Accreditation.Performed By: #### 05710 #### [address] [place] [place] [address], QKLLYY1rn 42-41-4603WID 3RD GENERATION<0.01Critically low 0.34-5.60The [facility] HospitalComment on above:Performed By: #### 46528, 31923, 57710, 56877, 49844 #### [facility] [address] [facility] [place] [address], USABASIC METABOLIC PANELon 83-13-2907Jfequre [Mass/Vol]9.8 mg/dLNormal8.6-10.3The [facility] HospitalComment on above:Order Comment: No: Do not add to previous drawPerformed By: #### 71061 #### [facility] [address] [place] [address], USAChloride [Moles/Vol]103 mmol/AUlawkh68-752Wem [facility] HospitalComment on above:Order Comment: No: Do not add to previous drawPerformed By: #### 00996 #### [facility] [address] [place] [address], USACO2 [Moles/Vol]29 mmol/AWfbkcq16-32Ffa [facility] HospitalComment on above:Order Comment: No: Do not add to previous draw Performed By: #### 33111 #### [facility] [address] [place] [address], USACreatinine [Mass/Vol]2.60 mg/dLHigh0.70-1.30The [facility] HospitalComment on above:Order Comment: No: Do not add to previous drawPerformed By: #### 01411 #### [facility] [address] [place] [address], USAeGFR- Ymolmceg53 ml/min/1.73sq mAbnormal>60The [facility] HospitalComment on above:Order Comment: No: Do not add to previous drawResult Comment: Calculation may not be valid for patients over 70 yearsPerformed By: #### 37617 #### [facility] [address] [place] [address], USAeGFR- non- Cwoaqnmi79 ml/min/1.73sq mAbnormal>60The [facility] HospitalComment on above:Order Comment: No: Do not add to previous drawResult Comment: Calculation may not be valid for patients over 70 yearsPerformed By: #### 72373 #### [facility] [address] [place] [address], USAGlucose [Mass/Vol]109 mg/oMTwkd98-660Jrr [facility] HospitalComment on above:Order Comment: No: Do not add to previous drawPerformed By: #### 11876 #### [facility] [address] [place] [address], USAPotassium [Moles/Vol]4.0 mmol/LNormal3.5-5.1The [facility] HospitalComment on above:Order Comment: No: Do not add to previous drawPerformed By: #### 90866 #### [facility] [address] [place] [address], USASodium [Moles/Vol]141 mmol/QWyruzi707-752Cyt [facility] HospitalComment on above:Order Comment: No: Do not add to previous drawPerformed By: #### 07450 #### [facility] [address] [facility] [place] [address], USAUrea nitrogen [Mass/Vol]55 mg/dLHigh7-25The [facility] HospitalComment on above:Order Comment: No: Do not add to previous drawPerformed By: #### 02102 #### [facility] [address] [facility] [place] [address], [facility] SERVICESCBC W/DIFFon 30-06-3557CPY IMM GRANS0.0 10*3/uLNormal 0.0-0.2The [facility] HospitalComment on above:Performed By: #### 43462 #### [facility] [address] [place] [address], USAABS NEUTROPHILS4.1 10*3/uLNormal1.6-7.6The [facility] HospitalComment on above:Performed By: #### 83884 #### [facility] [address] [facility] [place] [address], USABasophils (Bld) [#/Vol]0.0 10*3/uLNormal0.0-0.2The [facility] HospitalComment on above:Performed By: #### 76666 #### [facility] [address] [place] [address], USABasophils/100 WBC (Bld)0.3 %Normal0.0-1.0The [facility] HospitalComment on above:Performed By: #### 11516 #### [facility] [address] [facility] [place] [address], USAEosinophils (Bld) [#/Vol]0.3 10*3/uLNormal0.0-0.5The [facility] HospitalComment on above:Performed By: #### 06047 #### [facility] [address] [facility] [place] [address], USAEosinophils/100 WBC (Bld)5.3 %Normal0.0-6.0The [facility] HospitalComment on above:Performed By: #### 08800 #### [facility] [address] [facility] [address], USAErythrocyte distribution width (RBC) [Ratio]13.7 %Normal 11.5-15.0The [facility] HospitalComment on above:Performed By: #### 51403 #### [facility] [address] [facility] [address], USAHematocrit (Bld) [Volume fraction]30.2 %Low39.0-50.0The [facility] HospitalComment on above:Performed By: #### 07031 #### [facility] [address] [facility] [address], USAHemoglobin (Bld) [Mass/Vol]9.8 g/dLLow13.0-17.0The [facility] HospitalComment on above:Performed By: #### 12052 #### [facility] [address] [facility] [address], USAIMMATURE GRANS0.3 %Normal0.0-1.0The [facility] HospitalComment on above:Performed By: #### 42790 #### [facility] [address] [place] [address], USALymphocytes (Bld) [#/Vol]1.1 10*3/uLLow1.2-4.0The [facility] HospitalComment on above:Performed By: #### 50394 #### [facility] [address] [place] [address], USALymphocytes/100 WBC (Bld)17.9 %Low20.0-45.0The [facility] HospitalComment on above:Performed By: #### 80684 #### [facility] [address] [place] [address], [facility] (RBC) [Entitic mass]29.3 wnEqlnwy36.0-33.0The [facility] HospitalComment on above:Performed By: #### 46935 #### [facility] [address] [place] [address], [facility] SERVICESMCHC (RBC) [Mass/Vol]32.5 g/iFBrmrkw80.0-35.0The [facility] HospitalComment on above:Performed By: #### 23606 #### [facility] [address] [place] [address], [facility] SERVICESMCV (RBC) [Entitic vol]90.4 jZXfwxhk75.0-98.0The [facility] HospitalComment on above:Performed By: #### 43915 #### [facility] [address] [place] [address], USAMonocytes (Bld) [#/Vol]0.7 10*3/uLNormal0.1-1.0The [facility] HospitalComment on above:Performed By: #### 33849 #### [facility] [address] [place] [address], NJFHIIAD86.6 %Normal5.0-12.0The [facility] HospitalComment on above:Performed By: #### 27480 #### [facility] [address] [place] [address], USANeutrophils/100 WBC (Bld)64.6 %Dcyblx71.0-72.0The [facility] HospitalComment on above:Performed By: #### 58060 #### [facility] [address] [place] [address], USANucleated RBC/100 WBC (Bld) [Ratio]0 %Normal0-0The [facility] HospitalComment on above:Performed By: #### 50097 #### [facility] [address] [place] [address], USAPLAT UEM655 10*3/sQQmvnzj343-240Cjq [facility] HospitalComment on above:Performed By: #### 49781 #### [facility] [address] [place] [address], USARBC (Bld) [#/Vol]3.34 10*6/uLLow4.20-5.70The [facility] HospitalComment on above:Performed By: #### 96542 #### [facility] [address] [facility] [address], USAWBC (Bld) [#/Vol]6.38 10*3/uLNormal4.00-10.60The [facility] HospitalComment on above:Performed By: #### 50986 #### [facility] [address] [facility] [address], USAMAGNESIUM BLOODon 06-94-7410Qfrdrvxcj [Mass/Vol]2.3 mg/dL Normal1.9-2.7The [facility] HospitalComment on above:Order Comment: No: Do not add to previous drawPerformed By: #### 02363 #### [facility] [address] [place] [address], USATROPONIN-Ion 77-11-9470Xdxpwurj I.cardiac [Mass/Vol]0.04 ng/mLNormal0.00-0.04The [facility] HospitalComment on above: Order Comment: No: Do not add to previous drawResult Comment: REFERENCE RANGES: 0.00 - 0.04 ng/ml NORMAL 0.05 - 0.50 ng/ml INDETERMINATE > 0.50 ng/ml CONSISTENT WITH AN M.I.Performed By: #### 86927 #### [facility] [address] [place] [address], USABNPon 81-56-5297Rinpkdqkzhd peptide B (Bld) [Mass/Vol] 7410.0 pg/mLCritically high<=1,800.0The [facility] HospitalComment on above: Performed By: #### FT4 #### [facility] [address] [place] [address] Dr. Benito SchwartzPROF CHEM 8 (BAS METB)on 60-75-0215Ngjzx gap [Moles/Vol]14.5 mmol/LNormalThe [facility] HospitalComment on above:Performed By: #### FT4 #### [facility] [address] [place] [address] Dr. Benito SchwartzCalcium [Mass/Vol]9.6 mg/dLNormal8.5-10.1[facility] Comment on above:Performed By: #### FT4 #### [facility] [address] [place] [address] Dr. Benito SchwartzChloride [Moles/Vol]105 mmol/SWofzso69-076Gac [facility] Comment on above:Performed By: #### FT4 #### [facility] [address] [place] [address] Dr. Benito SchwartzCO2 [Moles/Vol]27.6 mmol/MNrdawa79.0-32.0The [facility] Comment on above:Performed By: #### FT4 #### [facility] [address] [place] [address] Dr. Benito SchwartzCreatinine [Mass/Vol]2.48 mg/dLCritically high0.70-1.30The [facility] HospitalComment on above:Performed By: #### FT4 #### [facility] [address] [place] [address] [address] Benito WanGFR-AF FBCFLGCW09 mL/min/1.44l6Sypwdzjkig low>=60The [facility] HospitalComment on above:Performed By: #### FT4 #### [facility] [address] [address] [address] Benito WanGFR-NON AF GCEZIQRI03 mL/min/1.38v8Hapowvzqva low>=60The [facility] HospitalComment on above:Performed By: #### FT4 #### [facility] [address] [place] [address] Dr. Benito SchwartzGlucose [Mass/Vol]116 mg/dLCritically ppuo38-322Cwy [facility] Hospitalment on above:Performed By: #### FT4 #### [facility] [address] [place] [address] Dr. Benito SchwartzPotassium [Moles/Vol]4.1 mmol/LNormal3.5-5.1The [facility] Comment on above:Performed By: #### FT4 #### [facility] [address] [place] [address] Dr. Benito SchwartzSodium [Moles/Vol]143 mmol/KYrsupl164-600Ldg [facility] Comment on above:Performed By: #### FT4 #### [facility] [address] [place] [address] Dr. Benito SchwartzUrea nitrogen [Mass/Vol]56.0 mg/dLCritically high7.0-18.0The [facility] HospitalComment on above:Performed By: #### FT4 #### [facility] [address] [place] [address] Dr. Benito SchwartzUrea nitrogen/Creatinine [Mass ratio]22.6 mg/mgNormalThe [facility] HospitalComment on above:Performed By: #### FT4 #### [facility] [address] [place] [address] Dr. Benito Love AUTO DIFFon 70-15-1011DWEX #0.0 103/ulNormal0.0-0.1The [facility] HospitalComment on above:Performed By: #### VITAD #### [facility] [address] [place] [address] Dr. Benito SchwartzBasophils/100 WBC (Bld)0.3 %Normal0.2-2.0The [facility] Comment on above:Performed By: #### VITAD #### [facility] [address] [place] [address] Dr. Benito Deluna #0.1 103/ulNormal0.0-0.7The [facility] HospitalComment on above: Performed By: #### VITAD #### [facility] [address] [place] [address] Dr. Benito Wanosinophils/100 WBC (Bld)2.4 %Normal0.9-7.0The [facility] Comment on above:Performed By: #### VITAD #### [facility] [address] [place] [address] Dr. Benito Wanrythrocyte distribution width (RBC) [Ratio]13.4 %Ttnmtv40.0-15.0 The [facility] HospitalComment on above:Performed By: #### VITAD #### [facility] [address] [place] [address] Dr. Benito SchwartzHematocrit (Bld) [Volume fraction]27.7 %Critically low42.0-54.0 The [facility] HospitalComment on above:Performed By: #### VITAD #### [facility] [address] [place] [address] Dr. Benito SchwartzHemoglobin (Bld) [Mass/Vol]8.8 g/dLCritically low14.0-18.0The [facility] HospitalComment on above:Performed By: #### VITAD #### [facility] [address] [place] [address] Dr. Benito Carias #0.02 10e3/ulNormal0.00-0.03The [facility] HospitalComment on above:Performed By: #### VITAD #### [facility] [address] [address] [address] Beniot Carias %0.3 %Normal0.0-0.5The [facility] HospitalComment on above: Performed By: #### VITAD #### [facility] [address] [address] [address] Benito Negrete #1.1 103/ulCritically low1.2-3.8The [facility] Comment on above:Performed By: #### VITAD #### [facility] [address] [place] [address] Dr. Benito Whitthocytes/100 WBC (Bld)17.9 %Critically low20.5-60.0The [facility] HospitalComment on above:Performed By: #### VITAD #### [facility] [address] [place] [address] Dr. Benito Kessler DIFF REQNONormalThe [facility] HospitalComment on above: Performed By: #### VITAD #### [facility] [address] [place] [address] Dr. Benito Quarles (RBC) [Entitic mass]29.0 knIjqxuq18.9-34.0The [facility] HospitalComment on above:Performed By: #### VITAD #### [facility] [address] [place] [address] Dr. Benito Lawson (RBC) [Mass/Vol]31.8 g/yIYuddzp41.9-35.2The [facility] HospitalComment on above:Performed By: #### VITAD #### [facility] [address] [place] [address] Dr. Benito Gomez (RBC) [Entitic vol]91.4 aKUweirb71.0-94.0[facility] CenterComment on above:Performed By: #### VITAD #### [facility] [address] [place] [address] Dr. Benito Colin #0.9 103/ulCritically high0.3-0.8The [facility] Comment on above:Performed By: #### VITAD #### [facility] [address] [place] [address] Dr. Benito Francoocytes/100 WBC (Bld)15.3 %Critically high1.7-12.0The [facility] HospitalComment on above:Performed By: #### VITAD #### [facility] [address] [place] [address] Dr. Benito Herrera #3.7 103/ulNormal1.4-6.5The [facility] HospitalComment on above:Performed By: #### VITAD #### [facility] [address] [place] [address] Dr. Benito Herediautrophils/100 WBC (Bld)63.8 %Gchgpp67.0-75.0The [facility] HospitalComment on above:Performed By: #### VITAD #### [facility] [address] [place] [address] Dr. Benito Montillalet mean volume (Bld) [Entitic vol]9.8 fLNormal9.5-13.5The [facility] HospitalComment on above:Performed By: #### VITAD #### [facility] [address] [place] [address] Dr. Benito CeballosT212 103/mkRllqpx118-767Mxa [facility] HospitalComment on above: Performed By: #### VITAD #### [facility] [address] [place] [address] Dr. Benito SchwartzRBC3.03 106/ulCritically low4.70-6.10The [facility] HospitalComment on above:Performed By: #### VITAD #### [facility] [address] [place] [address] Dr. Benito VargasBC5.9 103/ulNormal4.0-11.0The [facility] HospitalComment on above: Performed By: #### VITAD #### [facility] [address] [place] [address] Dr. Yilan ChangECHOCARDIO M/2D COMPLETEon [id number] M/2D COMPLETE Patient: DELANO OLIVER Exam Date: 03/07/2022 : 1940 Gender:M Ordering : DR RUPINDER GRIGSBY . Admission #: [id number] Family : DR YAS LINDA D.Rosario Order #: [id number] CLICK HERE TO VIEW EXAM ECHOCARDIOGRAM REPORT [...] Area(A4C): 23.30 cm2 Left Atrium Systolic Volume(A2C): 76800 mm3 Left Atrium Systolic Volume(A4C): 32409 mm3 Mitral Valve MV E to A [...] by: Sriram Rick M.D. on 03/08/2022 at 11:16NoSelect Medical Specialty Hospital - Cleveland-FairhillOCC BLD IMMUNO SCREENon 70-00-5918PHEAPB BLOODNegativeNormalNEGATIVEThe [facility] HospitalComment on above:Performed By: #### VITAD #### [facility] [address] [place] [address] Dr. Benito SchwartzPOINT OF CARE GLUCOSEon 32-27-4807Hexozxd [Mass/Vol]124 mg/dL Critically aodg34-611Nnu [facility] HospitalComment on above:Performed By: #### B12FOL, FETIBC #### [facility] [address] [address] [address] Benito SchwartzPROF CHEM 8 (BAS METB)on 35-27-7244Rhnjb gap [Moles/Vol]13.1 mmol/LNormalThe [facility] HospitalComment on above:Performed By: #### B12FOL, FETIBC #### [facility] [address] [address] [address] Benito SchwartzCalcium [Mass/Vol]9.2 mg/dLNormal8.5-10.1[facility] Comment on above:Performed By: #### B12FOL, FETIBC #### [facility] [address] [address] [address] Benito SchwartzChloride [Moles/Vol]105 mmol/DLrpoun58-280Hhg [facility] Comment on above:Performed By: #### B12FOL, FETIBC #### [facility] [address] [place] [address] Dr. Benito SchwartzCO2 [Moles/Vol]28.6 mmol/OEmwwri56.0-32.0The [facility] Comment on above:Performed By: #### B12FOL, FETIBC #### [facility] [address] [place] [address] Dr. Benito SchwartzCreatinine [Mass/Vol]2.22 mg/dLCritically high0.70-1.30The [facility] HospitalComment on above:Performed By: #### B12FOL, FETIBC #### [facility] [address] [place] [address] Dr. Benito WanGFR-AF OQQJCCSA03 mL/min/1.65g9Qqshrbyzrd low>=60The [facility] HospitalComment on above:Performed By: #### B12FOL, FETIBC #### [facility] [address] [place] [address] Dr. Oliver ChangEGFR-NON AF QRHPXKLE62 mL/min/1.70c1Fltwrdtchd low>=60The [facility] HospitalComment on above:Performed By: #### B12FOL, FETIBC #### [facility] [address] [place] [address] Dr. Benito SchwartzGlucose [Mass/Vol]110 mg/dLCritically uqpq71-252Als [facility] HospitalComment on above:Performed By: #### B12FOL, FETIBC #### [facility] [address] [place] [address] Dr. Benito SchwartzPotassium [Moles/Vol]3.7 mmol/LNormal3.5-5.1The [facility] Comment on above:Performed By: #### B12FOL, FETIBC #### [facility] [address] [place] [address] Dr. Benito SchwartzSodium [Moles/Vol]143 mmol/IHrxdzh174-062Ahw [facility] Comment on above:Performed By: #### B12FOL, FETIBC #### [facility] [address] [place] [address] Dr. Benito SchwartzUrea nitrogen [Mass/Vol]66.0 mg/dLCritically high7.0-18.0The [facility] HospitalComment on above:Performed By: #### B12FOL, FETIBC #### [facility] [address] [place] [address] Dr. Benito Andrade nitrogen/Creatinine [Mass ratio]29.7 mg/mgNormalThe [facility] HospitalComment on above:Performed By: #### B12FOL, FETIBC #### [facility] [address] [place] [address] Dr. Benito Love AUTO DIFFon 84-37-3993SQZE #0.0 103/ulNormal0.0-0.1[facility] CenterComment on above:Performed By: #### B12FOL, FETIBC #### [facility] [address] [place] [address] Dr. Benito SchwartzBasophils/100 WBC (Bld)0.2 %Normal0.2-2.0The [facility] Comment on above:Performed By: #### B12FOL, FETIBC #### [facility] [address] [place] [address] Dr. Benito Deluna #0.1 103/ulNormal0.0-0.7The [facility] HospitalComment on above: Performed By: #### B12FOL, FETIBC #### [facility] [address] [place] [address] Dr. Benito Wanosinophils/100 WBC (Bld)2.4 %Normal0.9-7.0The [facility] Comment on above:Performed By: #### B12FOL, FETIBC #### [facility] [address] [place] [address] Dr. Benito Wanrythrocyte distribution width (RBC) [Ratio]13.8 %Pbgilx03.0-15.0 The [facility] HospitalComment on above:Performed By: #### B12FOL, FETIBC #### [facility] [address] [place] [address] Dr. Benito SchwartzHematocrit (Bld) [Volume fraction]27.7 %Critically low42.0-54.0 [facility] CenterComment on above:Performed By: #### B12FOL, FETIBC #### [facility] [address] [place] [address] Dr. Benito SchwartzHemoglobin (Bld) [Mass/Vol]8.7 g/dLCritically low14.0-18.0The [facility] HospitalComment on above:Performed By: #### B12FOL FETIBC #### [facility] [address] [place] [address] Dr. Benito SchwartzIG #0.02 10e3/ulNormal0.00-0.03The [facility] HospitalComment on above:Performed By: #### B12FOL, FETIBC #### [facility] [address] [place] [address] Dr. Benito SchwartzIG %0.3 %Normal0.0-0.5The [facility] HospitalComment on above: Performed By: #### B12FOL, FETIBC #### [facility] [address] [place] [address] Dr. Benito Negrete #1.0 103/ulCritically low1.2-3.8The [facility] Comment on above:Performed By: #### B12FOL, FETIBC #### [facility] [address] [place], [place] [id number] Dr. Benito Lozanomphocytes/100 WBC (Bld)16.7 %Critically low20.5-60.0The [facility] HospitalComment on above:Performed By: #### B12FOL, FETIBC #### [facility] [address] [place] [address] Dr. Benito ZhaoUAL DIFF REQNONormalThe [facility] HospitalComment on above: Performed By: #### B12FOL, FETIBC #### [facility] [address] [place] [address] Dr. Benito Lawson (RBC) [Entitic mass]29.1 pqEehdcb88.9-34.0The [facility] HospitalComment on above:Performed By: #### B12FOL, FETIBC #### [facility] [address] [place] [address] Dr. Benito Lawson (RBC) [Mass/Vol]31.4 g/jSKydrcp58.9-35.2The [facility] HospitalComment on above:Performed By: #### B12FOL, FETIBC #### [facility] [address] [place] [address] Dr. Benito Lawson (RBC) [Entitic vol]92.6 lEZtsvxc39.0-94.0The [facility] HospitalComment on above:Performed By: #### B12FOL, FETIBC #### [facility] [address] [place] [address] Dr. Benito Colin #0.9 103/ulCritically high0.3-0.8The [facility] Comment on above:Performed By: #### B12FOL, FETIBC #### [facility] [address] [place] [address] Dr. Benito Francoocytes/100 WBC (Bld)15.3 %Critically high1.7-12.0The [facility] HospitalComment on above:Performed By: #### B12FOL, FETIBC #### [facility] [address] [place] [address] Dr. Benito Herrera #3.7 103/ulNormal1.4-6.5The [facility] HospitalComment on above:Performed By: #### B12FOL, FETIBC #### [facility] [address] [place] [address] Dr. Benito Herediautrophils/100 WBC (Bld)65.1 %Bvtbei91.0-75.0The [facility] HospitalComment on above:Performed By: #### B12FOL, FETIBC #### [facility] [address] [place] [address] Dr. Benito SchwartzPlatelet mean volume (Bld) [Entitic vol]9.7 fLNormal9.5-13.5The [facility] HospitalComment on above:Performed By: #### B12FOL, FETIBC #### [facility] [address] [place] [address] Dr. Benito SchwartzPLT205 103/ndXdwrlx090-386Svs [facility] HospitalComment on above: Performed By: #### B12FOL, FETIBC #### [facility] [address] [place] [address] Dr. Benito SchwartzRBC2.99 106/ulCritically low4.70-6.10The [facility] HospitalComthree rivers health hospital on above:Performed By: #### B12FOL, FETIBC #### [facility] [address] [place] [address] Dr. Benito SchwartzWBC5.7 103/ulNormal4.0-11.0The [facility] HospitalComment on above: Performed By: #### B12FOL, FETIBC #### [facility] [address] [place] [address] Dr. Benito SchwartzCT HEAD WO CONon [id number] HEAD WO CONEXAMINATION: CT HEAD WO CON, , 03/06/2022 8:14 [...] Electronically authenticated by: ANTHONY TRACEY Date: 2022-03-06 12:33[facility] AND TIBCon 03-06-2022% VECLCONCJR86.7 %NormalThe [facility] HospitalComment on above:Performed By: #### B12FOLoli FETIBC #### [facility] [address] [address] [address] Benito Means [Mass/Vol]55.0 ug/dLCritically low65.0-175.0The [facility] HospitalComment on above:Performed By: #### B12FOLoli FETIBC #### [facility] [address] [address] [address] Benito SchwartzTIBC YZJOBX532.0 ug/dLCritically vze723.0-450.0The [facility] HospitalComment on above:Performed By: #### MAKAYLA FETIBC #### [facility] [address] [place] [address] Dr. Benito SchwartzPOINT OF CARE GLUCOSEon 62-45-8117Txzdekh [Mass/Vol]145 mg/dL Critically epxh64-950Eew [facility] HospitalComment on above:Performed By: #### VITAD #### [facility] [address] [address] [address] Benito SchwartzPROF CHEM 8 (BAS METB)on 21-68-5645Vmrkt gap [Moles/Vol]14.6 mmol/LNormalThe [facility] HospitalComment on above:Performed By: #### VITAD #### [facility] [address] [place] [address] Dr. Benito SchwartzCalcium [Mass/Vol]9.0 mg/dLNormal8.5-10.1The [facility] Comment on above:Performed By: #### VITAD #### [facility] [address] [address] [address] Benito SchwartzChloride [Moles/Vol]106 mmol/RJldxqn56-274Met [facility] Comment on above:Performed By: #### VITAD #### [facility] [address] [address] [address] Benito SchwartzCO2 [Moles/Vol]26.3 mmol/CDompwu21.0-32.0The [facility] Comment on above:Performed By: #### VITAD #### [facility] [address] [address] [address] Benito SchwartzCreatinine [Mass/Vol]2.40 mg/dLCritically high0.70-1.30The [facility] HospitalComment on above:Performed By: #### VITAD #### [facility] [address] [address] [address] Oliver ChangEGFR-AF ZOXPJONP24 mL/min/1.86f7Qehxdvfoam low>=60The [facility] HospitalComment on above:Performed By: #### VITAD #### [facility] [address] [address] [address] Benito WanGFR-NON AF YKLFGOXT24 mL/min/1.97c7Hgdddeiqyx low>=60The [facility] HospitalComment on above:Performed By: #### VITAD #### [facility] [address] [address] [address] Benito SchwartzGlucose [Mass/Vol]108 mg/dLCritically ujcf23-804Hub [facility] HospitalComment on above:Performed By: #### VITAD #### [facility] [address] [address] [address] Benito SchwartzPotassium [Moles/Vol]3.9 mmol/LNormal3.5-5.1The [facility] Comment on above:Performed By: #### VITAD #### [facility] [address] [address] [address] Benito SchwartzSodium [Moles/Vol]143 mmol/KUgbarz502-167Reg [facility] Comment on above:Performed By: #### VITAD #### [facility] [address] [address] [address] Benito Andrade nitrogen [Mass/Vol]72.0 mg/dLCritically high7.0-18.0The [facility] HospitalComment on above:Performed By: #### VITAD #### [facility] [address] [place] [address] Dr. Benito Andrade nitrogen/Creatinine [Mass ratio]30.0 mg/mgNormalThe [facility] HospitalComment on above:Performed By: #### VITAD #### [facility] [address] [place] [address] Dr. Benito Kimble B12 AND FOLATEon 92-06-7528Iallucsvi (Vitamin B12) [Mass/Vol] 432.0 pg/zEGbinvr344.0-986.0The [facility] HospitalComment on above:Performed By: #### B12FOL, FETIBC #### [facility] [address] [place] [address] Dr. Benito SchwartzFOLATE21.60 ng/mLNormal8.60-58.90The [facility] HospitalComment on above:Performed By: #### B12FOL, FETIBC #### [facility] [address] [place] [address] Dr. Benito Ray 48-91-4095Vlopxuhtmfb peptide B (Bld) [Mass/Vol]6910.0 pg/mLCritically high<=1,800.0The [facility] HospitalComment on above:Result Comment: Test Repeated. Critical Value VerifiedPerformed By: #### B12FOL, FETIBC #### [facility] [address] [place] [address] Dr. Benito Love AUTO DIFFon 53-38-8203RGMX #0.0 103/ulNormal0.0-0.1The [facility] HospitalComment on above:Performed By: #### FT4, PSASC #### [facility] [address] [place] [address] Dr. Benito SchwartzBasophils/100 WBC (Bld)0.3 %Normal0.2-2.0The [facility] Comment on above:Performed By: #### FT4, PSASC #### [facility] [address] [place] [address] Dr. Benito Deluna #0.2 103/ulNormal0.0-0.7The [facility] HospitalComment on above: Performed By: #### FT4, PSASC #### [facility] [address] [place] [address] Dr. Benito Wanosinophils/100 WBC (Bld)2.7 %Normal0.9-7.0The [facility] Comment on above:Performed By: #### FT4, PSASC #### [facility] [address] [place] [address] Dr. Benito Wanrythrocyte distribution width (RBC) [Ratio]13.7 %Qfhghi93.0-15.0 The [facility] HospitalComment on above:Performed By: #### FT4, PSASC #### [facility] [address] [place] [address] Dr. Benito SchwartzHematocrit (Bld) [Volume fraction]27.9 %Critically low42.0-54.0 The [facility] HospitalComment on above:Performed By: #### FT4, PSASC #### [facility] [address] [place] [address] Dr. Benito SchwartzHemoglobin (Bld) [Mass/Vol]8.9 g/dLCritically low14.0-18.0The [facility] HospitalComment on above:Performed By: #### FT4, PSASC #### [facility] [address] [place] [address] Dr. Benito Carias #0.01 10e3/ulNormal0.00-0.03The [facility] HospitalComment on above:Performed By: #### FT4, PSASC #### [facility] [address] [place] [address] Dr. Benito SchwartzIG %0.2 %Normal0.0-0.5The [facility] HospitalComment on above: Performed By: #### FT4, PSASC #### [facility] [address] [place] [address] Dr. Benito Negrete #1.3 103/ulNormal1.2-3.8The [facility] HospitalComment on above:Performed By: #### FT4, PSASC #### [facility] [address] [place] [address] Dr. Benito Whitthocytes/100 WBC (Bld)21.5 %Rjzicw87.5-60.0The [facility] HospitalComment on above:Performed By: #### FT4, PSASC #### [facility] [address] [place] [address] Dr. Benito Kessler DIFF REQNONormalThe [facility] HospitalComment on above: Performed By: #### FT4, PSASC #### [facility] [address] [place] [address] Dr. Benito Lawson (RBC) [Entitic mass]29.5 gsIrjkbg40.9-34.0The [facility] HospitalComment on above:Performed By: #### FT4, PSASC #### [facility] [address] [place] [address] Dr. Benito Lawson (RBC) [Mass/Vol]31.9 g/xYRimghs43.9-35.2The [facility] HospitalComment on above:Performed By: #### FT4, PSASC #### [facility] [address] [place] [address] Dr. Benito Lawson (RBC) [Entitic vol]92.4 jEBoyenb48.0-94.0The [facility] HospitalComment on above:Performed By: #### FT4, PSASC #### [facility] [address] [place] [address] Dr. Benito Colin #1.0 103/ulCritically high0.3-0.8The [facility] Comment on above:Performed By: #### FT4, PSASC #### [facility] [address] [place] [address] Dr. Benito Francoocytes/100 WBC (Bld)16.3 %Critically high1.7-12.0The [facility] HospitalComment on above:Performed By: #### FT4, PSASC #### [facility] [address] [place] [address] Dr. Benito HerediaUT #3.5 103/ulNormal1.4-6.5The [facility] HospitalComment on above:Performed By: #### FT4, PSASC #### [facility] Laboratory [address] [place] [address] Dr. Benito Herediautrophils/100 WBC (Bld)59.0 %Fkktus81.0-75.0The [facility] HospitalComment on above:Performed By: #### FT4, PSASC #### [facility] [address] [place] [address] Dr. Benito SchwartzPlatelet mean volume (Bld) [Entitic vol]9.5 fLNormal9.5-13.5The [facility] HospitalComment on above:Performed By: #### FT4, PSASC #### [facility] [address] [place] [address] Dr. Benito SchwartzPLT213 103/aiDjhyhb656-651Mnq [facility] HospitalComment on above: Performed By: #### FT4, PSASC #### [facility] [address] [place] [address] Dr. Benito SchwartzRBC3.02 106/ulCritically low4.70-6.10The [facility] HospitalComthree rivers health hospital on above:Performed By: #### FT4, PSASC #### [facility] [address] [place] [address] Dr. Benito SchwartzWBC5.9 103/ulNormal4.0-11.0The [facility] HospitalComment on above: Performed By: #### FT4, PSASC #### [facility] [address] [place] [address] Dr. Benito Cotter BLOODon 33-37-7013Qupvvnefcok examination of blood, cultureCulture Observations: NO GROWTH AT 5 DAYS.NormalThe [facility] HospitalComment on above:Performed By: #### VITAD #### [facility] [address] [place] [address] Dr. Benito SchwartzCovid-19 PCR ([facility])on 31-99-9762CYGC-CoV-2 (COVID-19) RNA ZITA+probe Ql (Unsp spec)Not detectedNormalNOT DETECTEDThe [facility] Comment on above:Result Comment: This test is not yet approved or cleared by the [place] FDA. When there are no FDA-approved or cleared tests available, and other criteria are met, FDA can make tests available under an emergency access mechanism called an Emergency Use Authorization (EUA). The EUA for this test is supported by the [place] of Health and Human Service's (HHS's) declaration that circumstances exist to justify the emergency use of in vitro diagnostics for the detection and/or diagnosis of the virus that causes COVID- 19. This EUA will remain in effect (meaning [...] of clinical signs and symptoms consistent with SARS-CoV-2.Performed By: #### CBC #### [facility] [address] [place] [address] Dr. Benito Linton T4on 17-16-0223Dpya T4 [Mass/Vol]ng/dLCritically high 0.76-1.46The [facility] HospitalComment on above:Performed By: #### CBC #### [facility] [address] [place] [address] Dr. Benito SchwartzLACTATE/LACTIC ACIDon 99-85-0095Ddqttcp [Moles/Vol]1.2 mmol/L Normal0.4-1.9The [facility] HospitalComment on above:Performed By: #### FT4 #### [facility] [address] [place] [address] Dr. Benito Sharp 14(COMP METB)on 19-54-6325Gapndch [Mass/Vol]2.9 g/dL Critically low3.4-5.0The [facility] HospitalComment on above:Performed By: #### FT4, PSASC #### [facility] [address] [address] [address] Benito SchwartzAlbumin/Globulin [Mass ratio]0.8 {ratio}NormalThe [facility] HospitalComment on above:Performed By: #### FT4, PSASC #### [facility] [address] [address] [address] Benito MasseyP [Catalytic activity/Vol]107 U/THuqxnz36-667Inf [facility] HospitalComment on above:Performed By: #### FT4, PSASC #### [facility] [address] [address] [address] Benito MasseyT [Catalytic activity/Vol]25 U/HAhtias68-08Slm [facility] HospitalComment on above:Performed By: #### FT4, PSASC #### [facility] [address] [address] [address] Benito Cutler gap [Moles/Vol]14.2 mmol/LNormalThe [facility] Comment on above:Performed By: #### FT4, PSASC #### [facility] [address] [address] [address] Benito SchwartzAST [Catalytic activity/Vol]17 U/YXlnoeu55-17Vwk [facility] HospitalComment on above:Performed By: #### FT4, PSASC #### [facility] [address] [address] [address] Benito SchwartzBilirubin [Mass/Vol]0.5 mg/dLNormal0.2-1.0The [facility] Comment on above:Performed By: #### FT4, PSASC #### [facility] [address] [address] [address] Benito SchwartzCalcium [Mass/Vol]9.1 mg/dLNormal8.5-10.1The [facility] Comment on above:Performed By: #### FT4, PSASC #### [facility] [address] [place] [address] Dr. Benito SchwartzChloride [Moles/Vol]104 mmol/KUaqtmv07-122Nja [facility] Comment on above:Performed By: #### FT4, PSASC #### [facility] [address] [place] [address] Dr. Benito SchwartzCO2 [Moles/Vol]27.0 mmol/BYbdotx98.0-32.0The [facility] Comment on above:Performed By: #### FT4, PSASC #### [facility] [address] [place] [address] Dr. Benito SchwartzCreatinine [Mass/Vol]2.97 mg/dLCritically high0.70-1.30The [facility] HospitalComment on above:Performed By: #### FT4, PSASC #### [facility] [address] [place] [address] Dr. Benito WanGFR-AF BHQKKKZH50 mL/min/1.69j0Bwtkytjpbp low>=60The [facility] HospitalComment on above:Performed By: #### FT4, PSASC #### [facility] [address] [place] [address] Dr. Benito WanGFR-NON AF CQMOVQOA14 mL/min/1.44h6Cfuzxxkqxw low>=60The [facility] HospitalComment on above:Performed By: #### FT4, PSASC #### [facility] [address] [place] [address] Dr. Benito SchwartzGlobulin (S) [Mass/Vol]3.6 g/dLNormalThe [facility] HospitalComment on above:Performed By: #### FT4, PSASC #### [facility] [address] [place] [address] Dr. Benito SchwartzGlucose [Mass/Vol]162 mg/dLCritically lfvl35-926Cpa [facility] HospitalComment on above:Performed By: #### FT4, PSASC #### [facility] [address] [place] [address] Dr. Benito SchwartzPotassium [Moles/Vol]4.2 mmol/LNormal3.5-5.1The [facility] Comment on above:Performed By: #### FT4, PSASC #### [facility] [address] [place] [address] Dr. Benito SchwartzProtein [Mass/Vol]6.5 g/dLNormal6.4-8.2The [facility] Comment on above:Performed By: #### FT4, PSASC #### [facility] [address] [address] [address] Benito SchwartzSodium [Moles/Vol]141 mmol/LGarlkj333-976Urf [facility] Comment on above:Performed By: #### FT4, PSASC #### [facility] [address] [place] [address] Dr. Benito Andrade nitrogen [Mass/Vol]74.0 mg/dLCritically high7.0-18.0The [facility] HospitalComment on above:Performed By: #### FT4, PSASC #### [facility] [address] [place] [address] Dr. Benito Andrade nitrogen/Creatinine [Mass ratio]24.9 mg/mgNormalThe [facility] HospitalComment on above:Performed By: #### FT4, PSASC #### [facility] [address] [place] [address] Dr. Benito Pablo, HIGH SENSITIVITYon 31-64-3984OADSQL93.6 pg/mLNormal 4.0-76.1[facility] CenterComment on above:Result Comment: CUT-OFF POINTS HAVE BEEN ESTABLISHED BASED ON THE FOURTH UNIVERSAL DEFINITIONS OF MYOCARDIAL INFARCTION. THE UPPER REFERENCE LIMIT (URL) OF TROPONIN, DEFINED THE 99TH PERCENTILE OF cTnI DISTRIBUTION IN A REFERENCE POPULATION, HAS BEEN CONFIRMED THE DECISION THRESHOLD FOR [place] DIAGNOSIS.Performed By: #### FT4, PSASC #### [facility] [address] [place] [address] Dr. Benito Kelley 50-54-9996LYX Qnm[IU]/LCritically low0.358-3.740The [facility] HospitalComment on above:Performed By: #### FT4 #### [facility] [address] [place], [place] [address] Dr. Benito Friedman [facility] SystemComment on above: Result Comment: <0.34 UIU/ml HYPERTHYROID 0.34-5.60 UIU/ml EUTHYROID >5.60 UIU/ml HYPOTHYROIDPerformed By: #### FT4 #### [facility] [address] [place], [place] [address] Dr. Benito Soto THYROIDon 35-84-3502JP THYROIDEXAMINATION: US THYROID HISTORY: Acute thyroiditis COMPARISON: No [...] Electronically authenticated by: MALENA RIOS Date: 2022-03-04 13:[address] [place], [place] [address]Laboratory - Chemistry and Chemistry - challengeOrdered By: Enrrique Mckeon on 60-28-8219Hksiivrpenk peptide B (Bld) [Mass/Vol]251.0 pg/mL [facility]-[address] [place], [place] [address]No Panel InformationOrdered By: Enrrique Mckeon on 33-74-9258670.0 pg/mLSummers [facility]5-100[facility] DL <= 0.005 mIU/L QnOrdered By: Enrrique Mckeon on 54-58-6106YXA Qn m[IU]/LLow0.45-5.33[facility] QnSerum or plasma thyroid stimulating hormone (TSH) measurement by high sensitivity metLow 0.45-5.33[facility] HospitalCoding Summaryon 54-11-7161Mdhzxz SummaryHTMLBase 64 IqkbvpbrIYw4nZq+PGhlYWQ+RL0UOAAvH98rtYCbvE8FD2qOMC5FALECHVVOKL5HXG3glRV5DWwsD8Kb biAv [file] ZTs (more content not included)...[facility] HospitalProvider Orderson 08-92-9093Rhoeahuo [id number]#1.00OTGTIFF NormalThe Surgical Hospital At Southwoods HospitalCreatinine Lvlon 62-34-6042lRCY Non AA29 mL/min/1.73m2 Invalid Interpretation CodeCleveland Clinic Euclid HospitalComment on above:Performed By: #### [id number] #### [facility] (DEFAULT) [address] [place] [address] 323[address]mQAM AA35 mL/min/1.45j1Uelfios Interpretation CodeCleveland Clinic Euclid HospitalComment on above:Result Comment: Chronic Kidney disease could be indicated at eGFRs of less than 60 ml/min/1.73m2. Kidney Failure is indicated at less than 15 ml/min/1.02t1Khnqvcdrf By: #### [id number] #### [facility] (DEFAULT) [address] [place] [address] 38[address]Zrufwdgqrd [Mass/Vol]2.19 mg/dLHigh0.90-1.30[facility]ucl[facility] HospitalComment on above:Performed By: #### [id number] #### [facility] (DEFAULT) [address] [place] [address] Vital Signs Date TimeVital SignValuePerforming AuwoydygrQwphaczi11-73-0456 16:17-0400Body xafvvy653.34 cmBenjamin Ball DO Work Phone: [facility]10-07-2025 16:17-0400 Body mass index (BMI) [Ratio]28.8 kg/g0Nkgefvou Ball DO Work Phone: [facility]10-07-2025 16:17-0400 Body exnxus24.61 kgBenjamin Ball DO Work Phone: [facility]10-07-2025 16:17-0400 Diastolic blood xljbqdru79 mm[Hg]Yas Ball DO Work Phone: 1(419)[address] [place], [place] 6672810-07-2025 16:17-0400 Heart rate83 /minBenjamin Ball DO Work Phone: 1(419)[address] [place], [place] 6672810-07-2025 16:17-0400 Respiratory rate12 /minBenjamin Ball DO Work Phone: 1(419)[address] [place], [place] 6672810-07-2025 16:17-0400 Systolic blood sknmonfo681 mm[Hg]Yas Ball DO Work Phone: 1(419)[address] [place], [place] 6672809-23-2025 09:32-0400 Body sezxbr286.34 cmBenjamin Ball DO Work Phone: 1(419)[address] [place], [place] 6672809-23-2025 09:32-0400 Body mass index (BMI) [Ratio]27.9 kg/d7Yjgutdbw Ball DO Work Phone: 1(419)[address] [place], [place] 6672809-23-2025 09:32-0400 Body cpjnad80.83 kgBenjamin Ball DO Work Phone: 1(419)[address] [place], [place] [address]9-23-2025 09:32-0400 Diastolic blood bkhcfeqy63 mm[Hg]Yas Ball DO Work Phone: 1(419)[address] [place], [place] [address]9-23-2025 09:32-0400 Heart rate79 /minBenjamin Ball DO Work Phone: 1(419)[address] [place], [place] 667[address]9-23-2025 09:32-0400 Respiratory rate12 /minBenjamin Ball DO Work Phone: 1(419)[address] [place], [place] [address]9-23-2025 09:32-0400 Systolic blood lzoobvwa140 mm[Hg]Yas Ball DO Work Phone: 1(419)[address] [place], [place] 667[address]9-22-2025 10:25-0400 Body vnyhql529.34 cmBenjamin Ball DO Work Phone: 1(419)[address] [place], [place] 667[address]9-22-2025 10:25-0400 Body mass index (BMI) [Ratio]27 kg/k9Hjrgrrrb Ball DO Work Phone: 1419)[address] [place], [place] 667[address]9-22-2025 10:25-0400 Body uifzlh85.99 kgBenjamin Ball DO Work Phone: 1419)[address] [place], [place] [address]9-22-2025 10:25-0400 Diastolic blood oinsuztk28 mm[Hg]Yas Ball DO Work Phone: 1(419)[address] [place], [place] [address]9-22-2025 10:25-0400 Heart rate71 /minBenjamin Ball DO Work Phone: 1419)[address] [place], [place] 667[address]9-22-2025 10:25-0400 SaO2% (BldA) [Mass fraction]95 %Yas Ball DO Work Phone: 1419)[address] [place], [place] 667[address]9-22-2025 10:25-0400 Systolic blood vqzttpfi738 mm[Hg]Yas Ball DO Work Phone: 1419)[address] [place], [place] 667[address]8-22-2025 12:59-0400 Body wkrrya034.34 cmBenjamin Ball DO Work Phone: 1419)[address] [place], [place] 667[address]8-22-2025 12:59-0400 Body mass index (BMI) [Ratio]27.6 kg/w6Apochgzu Ball DO Work Phone: 1419)[address] [place], [place] 667[address]8-22-2025 12:59-0400 Body kekovkitymq70.8 [degF]Yas Ball DO Work Phone: 1419)[address] [place], [place] 6672808-22-2025 12:59-0400 Body nuhbsm94.81 kgBenjamin Ball DO Work Phone: 1419)[address] [place], [place] 6672808-22-2025 12:59-0400 Diastolic blood mm[Hg]Yas Ball DO Work Phone: 1419)[address] [place], [place] [address]8-22-2025 12:59-0400 Heart rate72 /minBenjamin Ball DO Work Phone: 1419)[address] [place], [place] 6672808-22-2025 12:59-0400 Respiratory rate16 /minBenjamin Ball DO Work Phone: 1(456)[address]08-22-2025 12:59-0400 SaO2% (BldA) [Mass fraction]97 %Yas Ball DO Work Phone: [phone])556-[address] [place], [place] 1752008-22-2025 12:59-0400 Systolic blood pjyeosij673 mm[Hg]Yas Ball DO Work Phone: 1419)[address]08-11-2025 10:12-0400 Body aeoori927.3 cmAnthony Rusher DPM Work Phone: 1(364)978[facility]09[facility] HospitalUzhrbadmnz62-98-2031 10:12-0400Body mass index (BMI) [Ratio]27.2 kg/h9Zokzrjd Rusher DPM Work Phone: 1(658)214-71[facility] HospitalKnkhaxwuew93-95-7151 10:12-0400Body ocrdbx98.45 kgAnthony Rusher DPM Work Phone: 1(711)460-34[facility] HospitalKikqpmbusd29-66-2873 16:15-0400Body fwtvyw191.34 cmBenjamin Ball DO Work Phone: 1(338)[address] [place], [place] 6672807-03-2025 16:15-0400 Body mass index (BMI) [Ratio]27.1 kg/f7Bwyfwkwe Ball DO Work Phone: 1(927)[address] [place], [place] 6672807-03-2025 16:15-0400 Body bjlvnkgzlno42.9 [degF]Yas Ball DO Work Phone: 1(835)[address]07-03-2025 16:15-0400 Body opekot47.22 kgBenjamin Ball DO Work Phone: [address] [place], [place] 6672807-03-2025 16:15-0400 Diastolic blood qkfbqyhf94 mm[Hg]Yas Ball DO Work Phone: 1(157)[address]07-03-2025 16:15-0400 Heart rate99 /minBenjamin Ball DO Work Phone: 1(744)[address] [place], [place] 667[address]7-03-2025 16:15-0400 Respiratory rate18 /minBenjamin Ball DO Work Phone: 1(419)[address] [place], [place] 6672807-03-2025 16:15-0400 SaO2% (BldA) [Mass fraction]98 %Yas Ball DO Work Phone: 1(419)[address] [place], [place] 6672807-03-2025 16:15-0400 Systolic blood ngtmmjja926 mm[Hg]Yas Ball DO Work Phone: 1(419)[address] [place], [place] 6672806-23-2025 09:00-0400 Body tiosgy766.34 cmBenjamin Ball DO Work Phone: 1(419)[address] [place], [place] 6672806-23-2025 09:00-0400 Body mass index (BMI) [Ratio]27.5 kg/h9Uqsotzjf Ball DO Work Phone: 1(419)[address] [place], [place] 6672806-23-2025 09:00-0400 Body rdzaxf22.41 kgBenjamin Ball DO Work Phone: 1(419)[address] [place], [place] 6672806-23-2025 09:00-0400 Diastolic blood zqctclpe60 mm[Hg]Yas Ball DO Work Phone: 1(419)[address] [place], [place] 6672806-23-2025 09:00-0400 Heart rate78 /minBenjamin Ball DO Work Phone: 1(419)[address] [place], [place] 6672806-23-2025 09:00-0400 Respiratory rate12 /minBenjamin Ball DO Work Phone: 1(419)[address] [place], [place] 6672806-23-2025 09:00-0400 Systolic blood bkxiiavj877 mm[Hg]Yas Ball DO Work Phone: 1(419)[address] [place], [place] 6672806-10-2025 13:16-0400 Body dupoas198.34 cmBenjamin Ball DO Work Phone: 1(419)[address] [place], [place] 6672806-10-2025 13:16-0400 Body mass index (BMI) [Ratio]27.5 kg/m3Hisjszsu Ball DO Work Phone: 1(419)[address] [place], [place] 6672806-10-2025 13:16-0400 Body feddev30.41 kgBenjamin Ball DO Work Phone: 1(419)721-[address] [place], [place] 1752006-10-2025 13:16-0400 Diastolic blood seddjeeu12 mm[Hg]Yas Ball DO Work Phone: 1(419)675-[address] [place], [place] 1752006-10-2025 13:16-0400 Heart rate76 /minBenjamin Ball DO Work Phone: 1(419)[address] [place], [place] 6672806-10-2025 13:16-0400 Respiratory rate12 /minBenjamin Ball DO Work Phone: 1(419)[address] [place], [place] 6672806-10-2025 13:16-0400 Systolic blood gtnmsjra371 mm[Hg]Yas Ball DO Work Phone: 1(419)[address] [place], [place] 6672805-16-2025 12:56-0400 Body ehxfou776.34 cmBenjamin Ball DO Work Phone: 1(419)[address] [place], [place] 6672805-16-2025 12:56-0400 Body mass index (BMI) [Ratio]27.4 kg/i1Yfuvsnsr Ball DO Work Phone: 1(419)[address] [place], [place] 6672805-16-2025 12:56-0400 Body rgpoyh16.35 kgBenjamin Ball DO Work Phone: 1(419)[address] [place], [place] 6672805-16-2025 12:56-0400 Diastolic blood etbesfgt39 mm[Hg]Yas Ball DO Work Phone: 1(419)[address] [place], [place] 6672805-16-2025 12:56-0400 Heart rate72 /minBenjamin Ball DO Work Phone: 1(419)[address] [place], [place] 6672805-16-2025 12:56-0400 Respiratory rate16 /minBenjamin Ball DO Work Phone: 1(419)[address] [place], [place] 6672805-16-2025 12:56-0400 SaO2% (BldA) [Mass fraction]99 %Yas Ball DO Work Phone: 1(419)[address] [place], [place] 6672805-16-2025 12:56-0400 Systolic blood quwyutux087 mm[Hg]Yas Ball DO Work Phone: 1(802)461-[address] [place], [place] 1752005-09-2025 10:46-0400 Body ogbdgx653.3 cmAntyohana Rusher DPM Work Phone: 1(735)[address]05-09-2025 10:46-0400Body mass index (BMI) [Ratio]27.34 kg/u3Dbpkwbv Rusher DPM Work Phone: 1(281)064-[address] [place], [place] [address]Tyuqkayfxg24-14-8536 10:46-0400Body ywitrt08.91 kgAnthony Rusher DPM Work Phone: 1(362)[address]04-15-2025 14:22-0400Body .34 cmBenjamin Ball DO Work Phone: 1(200)[address]04-15-2025 14:22-0400 Body mass index (BMI) [Ratio]27.3 kg/w9Lrfqicud Ball DO Work Phone: 1(187)781-[address] [place], [place] 1752004-15-2025 14:22-0400 Body huyrei88.9 kgBenjamin Ball DO Work Phone: 1(064)479-[address] [place], [place] 1752004-15-2025 14:22-0400 Diastolic blood mm[Hg]Yas Ball DO Work Phone: 1(279)674-[address] [place], [place] 1752004-15-2025 14:22-0400 Heart rate87 /minBenjamin Ball DO Work Phone: 1(588)191-[address] [place], [place] 1752004-15-2025 14:22-0400 Respiratory rate12 /minBenjamin Ball DO Work Phone: 1(636)251-[address] [place], [place] 1752004-15-2025 14:22-0400 Systolic blood uwitlxtu419 mm[Hg]Yas Ball DO Work Phone: 1(438)387-[address] [place], [place] 1752004-07-2025 11:05-0400 Body .34 cmBenjamin Ball DO Work Phone: 1(836)723-[address] [place], [place] 1752004-07-2025 11:05-0400 Body mass index (BMI) [Ratio]27.8 kg/a2Fbaovqnd Ball DO Work Phone: 1(419)[address] [place], [place] 6672804-07-2025 11:05-0400 Body vjyzbaxcvxo40.4 [degF]Yas Ball DO Work Phone: 1(419)[address] [place], [place] 6672804-07-2025 11:05-0400 Body dncxuk95.37 kgBenjamin Ball DO Work Phone: 1(419)[address] [place], [place] 6672804-07-2025 11:05-0400 Diastolic blood xwvkrvaq24 mm[Hg]Yas Ball DO Work Phone: 1(419)[address] [place], [place] 6672804-07-2025 11:05-0400 Heart rate81 /minBenjamin Ball DO Work Phone: 1(419)[address] [place], [place] 6672804-07-2025 11:05-0400 Respiratory rate18 /minBenjamin Ball DO Work Phone: 1(419)[address] [place], [place] 6672804-07-2025 11:05-0400 SaO2% (BldA) [Mass fraction]96 %Yas Ball DO Work Phone: 1(419)[address] [place], [place] 6672804-07-2025 11:05-0400 Systolic blood vischgkh140 mm[Hg]Yas Ball DO Work Phone: 1(419)[address] [place], [place] 6672803-28-2025 06:03-0400 Body bdfpjhpnhea33.3 [degF]Yas Ball DO Work Phone: 1(419)[address] [place], [place] 6672803-28-2025 06:03-0400 Diastolic blood lgfcnohg39 mm[Hg]Yas Ball DO Work Phone: 1(419)[address] [place], [place] 6672803-28-2025 06:03-0400 Heart rate69 /minBenjamin Ball DO Work Phone: 1419)[address] [place], [place] 6672803-28-2025 06:03-0400 Respiratory rate16 /minBenjamin Ball DO Work Phone: 1419)[address] [place], [place] 6672803-28-2025 06:03-0400 SaO2% (BldA) [Mass fraction]94 %Yas Ball DO Work Phone: 1(430)[address]03-28-2025 06:03-0400 Systolic blood efxfmzkj613 mm[Hg]Yas Ball DO Work Phone: 1419)[address]03-28-2025 06:00-0400 Body ycuozh74.2 kgBenjamin Ball DO Work Phone: 1419)[address] [place], [place] 6672803-26-2025 07:58-0400 Body jsajhp046.34 cmBenjamin Ball DO Work Phone: [address] [place], [place] 6672803-17-2025 05:00-0400 Inhaled oxygen flow rate1 L/minBenjamin Ball DO Work Phone: 1(758)[address] [place], [place] 6672803-14-2025 12:17-0400 Diastolic blood zxmxeimq19 mm[Hg]Yas Ball DO Work Phone: 1(720)[address] [place], [place] 6672803-14-2025 12:17-0400 Heart rate69 /minBenjamin Ball DO Work Phone: 1(199)[address] [place], [place] 6672803-14-2025 12:17-0400 Inhaled oxygen flow rate3 L/minBenjamin Ball DO Work Phone: 1(010)[address] [place], [place] 6672803-14-2025 12:17-0400 Respiratory rate18 /minBenjamin Ball DO Work Phone: 1(464)[address] [place], [place] 6672803-14-2025 12:17-0400 SaO2% (BldA) [Mass fraction]99 %Yas Ball DO Work Phone: 1(828)[address] [place], [place] 6672803-14-2025 12:17-0400 Systolic blood wsvrboow702 mm[Hg]Yas Ball DO Work Phone: 1419)[address] [place], [place] 6672803-14-2025 05:45-0400 Body kpulmw89.2 kgBenjamin Ball DO Work Phone: [address] [place], [place] 6672803-14-2025 05:44-0400 Body ljybtctxgci50.9 [degF]Yas Ball DO Work Phone: [facility]03-11-2025 13:50-0400 Body sdtyjm730.34 cmBenalbert Ball DO Work Phone: [facility]03-11-2025 03:09-0400 Inhaled oxygen beiutiuiaqwej73 %Yas Ball DO Work Phone: [facility]03-06-2025 08:55-0500 Body .34 cmAv[facility]03-06-2025 08:55-0500Body mass index (BMI) [Ratio]28.9 kg/p3NvkrzgwazAvita Health System [facility] Hospital03-06-2025 08:55-0500Body kgAvita Health System [facility] Hospital03-06-2025 08:55-0500 Diastolic blood qqbpibze83 mm[Hg][facility]03-06-2025 08:55-0500Heart rate69 /[facility]03-06-2025 08:55-0500Respiratory rate12 /[facility]03-06-2025 08:55-1081WtP1% (BldA) [Mass fraction]96 %[facility] 12-19-2024 08:55-0500Systolic blood pxsqstor934 mm[Hg][facility]10-24-2024 10:27-0400Diastolic blood ghhgiihh86 mm[Hg]Avery Syed MD Work Phone: [facility]10-24-2024 10:27-0400Heart rate 72 /minAvery Syed MD Work Phone: [facility]10-24-2024 10:27-0400Systolic blood hfheyzvc370 mm[Hg]Avery Syed MD Work Phone: [facility]10-24-2024 10:25-0400Body tyglla194.3 Patricio Syed MD Work Phone: [facility]10-24-2024 10:25-0400Body mass index (BMI) [Ratio]30.52 kg/c2MwtmvAvery Syed MD Work Phone: [facility]10-24-2024 10:25-0400Body gvoynn86.25 kgAvery Syed MD Work Phone: [facility]09-24-2024 10:33-0400Diastolic blood iielihuv38 mm[Hg]Sidra [facility]ancho DO [facility] 10:33-0400Heart rate70 /min Sidra Pancho DO [id number] 10:33-6483CoD4% (BldA) [Mass fraction]93 %Sidra Pancho DO [id number] 10:33-0400Systolic blood haqupcgt538 mm[Hg]Sidra Pancho DO Work Phone: [facility] HospitalWvzwiauiwk28-48-4181 10:44-0400Body knyhxv313.34 cmDO Yas Ball Work Phone: [phone]07-08-2024 10:44-0400 Body mass index (BMI) [Ratio]30.2 kg/m2DO Yas Ball Work Phone: [phone]07-08-2024 10:44-0400 Body clrzyj53.14 kgDO Yas Ball Work Phone: [phone]07-08-2024 10:44-0400 Diastolic blood wthyvtjk73 mm[Hg]DO Yas Ball Work Phone: [phone]07-08-2024 10:44-0400 Heart rate73 /minDO Yas Ball Work Phone: [facility]07-08-2024 10:44-0400 Respiratory rate12 /minDO Yas Ball Work Phone: [phone]07-08-2024 10:44-0400 Systolic blood dywcovyh602 mm[Hg]DO Yas Ball Work Phone: 1(208)544-[address] [place], [place] 1752005-17-2024 11:11-0400 Body zudngo407.34 cmDO Yas Ball Work Phone: 1(718)195-[address] [place], [place] 1752005-17-2024 11:11-0400 Body mass index (BMI) [Ratio]30.1 kg/m2DO Yas Ball Work Phone: [phone])[address]05-17-2024 11:11-0400 Body zlckgnincqn66 [degF]DO Yas Ball Work Phone: 1([phone])[address]05-17-2024 11:110400 Body nbijkz25.97 kgDO Yas Ball Work Phone: 1(745)[address]22 [address]05-17-2024 11:11-0400 Diastolic blood hbweezpa80 mm[Hg]DO Yas Ball Work Phone: 1(636)06222 [address]05-17-2024 11:11-0400 Heart rate67 /minDO Yas Ball Work Phone: 1(348)264[address]05-17-2024 11:11-0400 Respiratory rate18 /minDO Yas Ball Work Phone: 1(055)[address]05-17-2024 11:11-0400 SaO2% (BldA) [Mass fraction]95 %DO Yas Ball Work Phone: [phone])[address]05-17-2024 11:11-0400 Systolic blood cajyqscx995 mm[Hg]DO Yas Ball Work Phone: 1(823)[address]22 [address]04-25-2024 10:19-0400 Diastolic blood yccxebyq66 mm[Hg]Avery Syed MD Work Phone: [facility]25[facility] 10:19-0400Heart rate 70 /minAvery Syed MD Work Phone: [facility]umi Urygkx46-76-1026 10:19-0400Systolic blood gtubrrce547 mm[Hg]Avery Syed MD Work Phone: [facility]04-25-2024 10:18-0400Body mass index (BMI) [Ratio]29.99 kg/d7DzwndAvery Syed MD Work Phone: [facility]04-25-2024 10:180400Body ohtadb01.52 kgAvery Syed MD Work Phone: [facility]03-04-2024 10:07-0500Body .34 cmDO Yas Ball Work Phone: [phone]03-04-2024 10:07-0500 Body mass index (BMI) [Ratio]30.2 kg/m2DO Yas Ball Work Phone: 1(415)39522 [address]03-04-2024 10:07-0500 Body ywqpun10.2 kgDO Yas Ball Work Phone: 1(801)[address]03-04-2024 10:07-0500 Diastolic blood tjpgzcom49 mm[Hg]DO Yas Ball Work Phone: 1(257)012-[address] [place], [place] 1752003-04-2024 10:07-0500 Heart rate72 /minDO Yas Ball Work Phone: 1(759)203-[address] [place], [place] 1752003-04-2024 10:07-0500 Respiratory rate12 /minDO Yas Ball Work Phone: 1(701)575-[address] [place], [place] 1752003-04-2024 10:07-0500 Systolic blood ioerghnt472 mm[Hg]DO Yas Ball Work Phone: 1(311)572-[address] [place], [place] 1752011-17-2023 13:51-0500 Body towqdw949.34 cmDO Yas Ball Work Phone: 1(657)[address]11-17-2023 13:51-0500 Body bjnakpqjxff90.7 [degF]DO Yas Ball Work Phone: 1(933)597-[address] [place], [place] 1752011-17-2023 13:51-0500 Body ydogsi84.02 kgDO Yas Ball Work Phone: 1(446)356-[address] [place], [place] 1752011-17-2023 13:51-0500 Diastolic blood kodgrjrw39 mm[Hg]DO Yas Ball Work Phone: [facility]11-17-2023 13:51-0500 Heart rate70 /minDO Yas Ball Work Phone: [facility]11-17-2023 13:51-0500 Respiratory rate20 /minDO Yas Ball Work Phone: [phone]11-17-2023 13:51-0500 SaO2% (BldA) [Mass fraction]96 %DO Yas Ball Work Phone: [facility]11-17-2023 13:51-0500 Systolic blood wjovecuf676 mm[Hg]DO Yas Ball Work Phone: [facility]11-07-2023 10:00-0500 Body heightBenjamin Ball Other [employer] Other 11-07-2023 10:00-0500Body mass index (BMI) [Ratio] 29.35 kg/i6Gotiirvh Ball Other [employer] Other 11-07-2023 10:00-0500Body xemyek06.16 kgBenjamin Ball Other [employer] Other 11-07-2023 10:00-0500Diastolic blood ayiddejh67 mm[Hg] Yas Ball Other [employer] Other 11-07-2023 10:00-0500Respiratory rate12 /minBenjamin Ball Other [employer] Other 11-07-2023 10:00-0500Systolic blood zhffetnl244 mm[Hg] Yas Ball Other [employer] Other 07-06-2023 09:30-0400Body heightBenjamin Ball Other [facility] Other 07-06-2023 09:30-0400Body mass index (BMI) [Ratio] 29.62 kg/p7Lzpqfpqe Ball Other [employer] Other 07-06-2023 09:30-0400Body tbpatu41.07 kgBenjamin Ball Other [employer] Other 07-06-2023 09:30-0400Diastolic blood csrodirh70 mm[Hg] Yas Ball Other [employer] Other 07-06-2023 09:30-0400Respiratory rate12 /minBenjamin Ball Other [employer] Other 07-06-2023 09:30-0400Systolic blood uoewjhil490 mm[Hg] Yas Ball Other [employer] Other 03-02-2023 10:00-0500Body heightBenjamin Ball Other [employer] Other 03-02-2023 10:00-0500Body mass index (BMI) [Ratio] 29.81 kg/z0Ahzpxpdm Ball Other [employer] Other 03-02-2023 10:00-0500Body joravn67.7 kgBenjamin Ball Other [employer] Other 03-02-2023 10:00-0500Diastolic blood lkycsvnp62 mm[Hg] Yas Ball Other [employer] Other 03-02-2023 10:00-0500Respiratory rate12 /minBenjamin Ball Other [facility] [employer] Other 03-02-2023 10:00-0500Systolic blood jkgoixgf460 mm[Hg] Yas Ball Other [facility] [employer] Other [id number] 14:11-0500Body sdlrof61.9 kgDO Yas Ball Work Phone: [facility]11-18-2022 14:11-0500 Diastolic blood arqwchqj90 mm[Hg]DO Yas Ball Work Phone: [facility]11-18-2022 14:11-0500 Heart rate60 /minDO Yas Ball Work Phone: [facility]11-18-2022 14:11-0500 Respiratory rate20 /minDO Yas Ball Work Phone: [facility]11-18-2022 14:11-0500 SaO2% (BldA) [Mass fraction]96 %DO Yas Ball Work Phone: [facility]11-18-2022 14:11-0500 Systolic blood qaivzcmn536 mm[Hg]DO Yas Ball Work Phone: [facility]10-06-2022 10:13-0400 Diastolic blood xpxcbomr67 mm[Hg]DO Yas Ball Work Phone: [facility]10-06-2022 10:13-0400 Heart rate60 /minDO Ysa Ball Work Phone: [facility]10-06-2022 10:13-0400 Respiratory rate16 /minDO Yas Ball Work Phone: [facility]10-06-2022 10:13-0400 SaO2% (BldA) [Mass fraction]95 %DO Yas Ball Work Phone: [facility]10-06-2022 10:13-0400 Systolic blood ilftgwvt025 mm[Hg]DO Yas Ball Work Phone: 1([phone])142-[address] [place], [place] 1752010-06-2022 08:10-0400 Body .34 cmDO Yas Ball Work Phone: 1(537)[address] [place], [place] 6672810-06-2022 08:10-0400 Body mucdrdmyyxl52.2 [degF]DO Yas Ball Work Phone: [address] [place], [place] 6672810-06-2022 08:10-0400 Body nfozdz71.71 kgDO Yas Ball Work Phone: 1(431)[address] [place], [place] 6672809-02-2022 10:25-0400 Body .2 [degF]DO Yas Ball Work Phone: 1([phone])[address] [place], [place] 6672809-02-2022 10:25-0400 Diastolic blood hxlhqysf12 mm[Hg]DO Yas Ball Work Phone: 1(699)[address] [place], [place] 6672809-02-2022 10:25-0400 Heart rate62 /minDO Yas Ball Work Phone: [phone])[address] [place], [place] 6672809-02-2022 10:25-0400 Respiratory rate18 /minDO Yas Ball Work Phone: 1(992)[address] [place], [place] 6672809-02-2022 10:25-0400 SaO2% (BldA) [Mass fraction]98 %DO Yas Ball Work Phone: 1(638)[address] [place], [place] 6672809-02-2022 10:25-0400 Systolic blood smuobgmd479 mm[Hg]DO Yas Ball Work Phone: 1(348)[address] [place], [place] 6672808-19-2022 09:55-0400 Body ofawyh063.34 cmDO Yas Ball Work Phone: [address] [place], [place] 6672808-19-2022 09:55-0400 Body rhcewc30.85 kgDO Yas Ball Work Phone: 1(293)[facility] [place] [address] Encounters Encounter DateEncounter TypeCare ProviderFacilityStart: 27-60-9328tlilcfpwhk RON GRUBBUniversMercy Health West Hospitaltart: 07-22-2025 End: 64-91-6865yumyicdznsQlutcjmv Maddi DO Work Phone: [facility] Work Phone: Start: 07-22-2025 End: 58-42-1735Ivwpskb encounter procedureBenalbert Linda DO-[facility] Work Phone: Start: 96-09-8553Huz-patient / Non-visitCatherine Sha LABELING ASSOCIATE-[facility] Work Phone: Start: 07-08-2025 End: 38-61-7629vkjaikrqypMmqdkbob Maddi DO Work Phone: [facility] Work Phone: Start: 07-08-2025 End: 89-35-2510Kjpldvn encounter procedureBenalbert Linda DO-[facility] Work Phone: Start: 07-07-2025 End: 62-05-2263ohwmckwobvXazvushd Maddi DO Work Phone: [facility] Work Phone: Start: 07-07-2025 End: 20-91-6386Fhsrblb encounter procedureSidra Tello DO-[facility] [place] Work Phone: Start: 09-78-9624Iqx-patient / Non-visitBenjamin Maddi DO-[facility] Work Phone: Start: 72-16-4566xwqaqtxqqmXTGYC UBBUniFairfield Medical Centertart: 43-04-3925Uwykubcbmz RecurringTimdomo Keller II DO-[facility] Work Phone: Start: 06-06-2025 End: 74-96-4399twvvrznhogHovhczor Ball DO Work Phone: [facility] Work Phone: Start: 06-06-2025 End: 31-81-5774Swvputg encounter procedureKecia Mayfield 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Alicia-[facility] Work Phone: Start: 05-30-2025 End: 93-55-4178Tscxpefs Result EncounterChivo Howell Isaurokumar DO Work Phone: noms External Department UnsolicitedStart: 05-30-2025 End: 09-70-7949Kqgklzzx Result EncounterChivo Howell Arianna DO Work Phone: noms External Department UnsolicitedStart: 05-29-2025 ambulatoryBLAIR UBBUHocking Valley Community Hospitaltart: 05-27-2025 End: 71-65-5379jvbyrjohqvKHGEFirelands Regional Medical Center South Campustart: 05-26-2025 End: 59-36-9189Jcqdbu flowsheetAnthony S Vinayher DPM Work Phone: noMS [facility]iatryStart: 05-26-2025 End: 17-90-5255Hfcwxd flowsheetAnthony S Rusher DPM Work Phone: noMS [facility] PodiatryStart: 05-26-2025 End: 33-62-5886Axtauup encounter procedureAnthony S Vinayher DPM Work Phone: noMS [facility] PodiatryComment on above:Onychomycosis (Primary Dx); Onychodystrophy; Diabetic polyneuropathy associated with type 2 diabetes mellitus (HCC)Start: 05-26-2025 End: 80-86-3583sdkuomnvnvTwlplhkq Brink PTANOMS Brendan Physical TherapyComment on above:Greater trochanteric bursitis of left hip (Primary Dx); History of total hip arthroplasty, right; Left hip painStart: 05-23-2025 End: 16-22-4187Mvsenp flowsheetMarshall Brink PTANOMS [facility] Start: 05-23-2025 End: 80-22-6070Gyftvx flowsheetMarshall Brink PTANOMS [facility] Start: 05-23-2025 End: 04-96-3237fdllrsorwlXcgzrbhb Brink PTANOMS [facility] Physical TherapyComment on above:Greater trochanteric bursitis of left hip (Primary Dx); History of total hip arthroplasty, right; Left hip painStart: 05-21-2025 End: 50-22-5883Ownvhb flowsheetMarshall Brink PTANOMS [facility] Start: 05-21-2025 End: 84-43-7384Nqcbgu flowsheetMarshall Brink PTANOMS [facility] Start: 05-21-2025 End: 51-44-9880poltgvfppaToqkqrki Brink PTANOMS [facility] Physical TherapyComment on above:Greater trochanteric bursitis of left hip (Primary Dx); History of total hip arthroplasty, right; Left hip painStart: 05-19-2025 End: 03-01-5353Zmxtwy flowsheetMelissa Kelbley PTANOMS [facility] Start: 05-19-2025 End: 10-27-7228Jijbup flowsheetMelissa Kelbley PTANOMS [facility] Start: 05-19-2025 End: 69-91-4469tupeupeawkVrnsuwb Kelbley PTANOMS Brendan Physical TherapyComment on above:Greater trochanteric bursitis of left hip (Primary Dx); History of total hip arthroplasty, right; Left hip painStart: 05-16-2025 End: 39-64-1690Qjclly flowsheetMarshall Brink PTAN[facility] Start: 05-16-2025 End: 62-68-2326Xhqxjk flowsheetMarshall Brink PTANOMS [facility] Start: 05-16-2025 End: 82-30-0701lgimceldsxZthoouex Brink PTANOMS Brendan Physical TherapyComment on above:Greater trochanteric bursitis of left hip (Primary Dx); History of total hip arthroplasty, right; Left hip painStart: 05-14-2025 End: 26-80-9278Ccrxoh flowsheetMarshall Brink PTANOM[facility] Start: 05-14-2025 End: 61-83-8826Dkxjbi flowsheetMarshall Brink PTAN[facility] Start: 05-14-2025 End: 19-26-7465bmznjlisyxMrfdppwn Brink PTANOMS [facility] Physical TherapyComment on above:Greater trochanteric bursitis of left hip (Primary Dx); History of total hip arthroplasty, right; Left hip painStart: 05-12-2025 End: 66-27-6409Eeacqv flowsheetMelissa Brennanbley PTANOM[facility] Start: 05-12-2025 End: 96-19-3853Gimepo flowsheetMelissa Princess PTANOMS [facility] Start: 05-12-2025 End: 05-71-4904rxmeqqzcurHygxfqn Keltarahy PTANOMS Brendan Physical TherapyComment on above:Greater trochanteric bursitis of left hip (Primary Dx); History of total hip arthroplasty, right; Left hip painStart: 05-09-2025 End: 58-44-8107Sdpbcy flowsheetNikkieissa Asimy PTANOMS CI PTStart: 05-09-2025 End: 15-59-6049Cyijwa flowsheetMelissa Kelbley PTANOMS CI PTStart: 05-09-2025 End: 70-34-9294isgmpwureiHvxfyqe Kelbley PTANOMS CI PTComment on above:Greater trochanteric bursitis of left hip (Primary Dx); History of total hip arthroplasty, right; Left hip painStart: 05-07-2025 End: 42-66-3992Ospscw flowsheetMelissa Kelbley PTANOMS CI PTStart: 05-07-2025 End: 73-16-2621Vhoapu flowsheetMelissa Kelbley PTANOMS CI PTStart: 05-07-2025 End: 01-14-9158sywmzxoqydTbdkfof Kelbley PTANOMS CI PTComment on above:Greater trochanteric bursitis of left hip (Primary Dx); History of total hip arthroplasty, right; Left hip painStart: 05-05-2025 End: 50-64-9330Virxiz flowsheetMelissa Kelbley PTANOMS CI PTStart: 05-05-2025 End: 38-28-2538Jdzeyp flowsheetMelissa Kelbley PTANOMS CI PTStart: 05-05-2025 End: 24-08-1607xhgrodarmpFowjovi Kelbley PTANOMS CI PTComment on above:Greater trochanteric bursitis of left hip (Primary Dx); History of total hip arthroplasty, right; Left hip painStart: 2025 End: 20-94-4643Ffsxsp flowsheetMelissa Kelbley PTANOMS CI PTStart: 2025 End: 31-56-9217Hooelg flowsheetMelissa Kelbley PTANOMS CI PTStart: 2025 End: 85-70-1301wqnqipoxrkQbgnpln Kelbley PTANOMS CI PTComment on above:Greater trochanteric bursitis of left hip (Primary Dx); History of total hip arthroplasty, right; Left hip painStart: 04-30-2025 End: 54-28-0756Pdxdca flowsheetMarshall Brink PTANOMS CI PTStart: 04-30-2025 End: 07-29-3542Ohihqt flowsheetMarshall Brink PTANOMS CI PTStart: 04-30-2025 End: 77-96-3970xdnfmrawhlNlkdmtnp Brink PTANOMS CI PTComment on above:Greater trochanteric bursitis of left hip (Primary Dx); History of total hip arthroplasty, right; Left hip painStart: 04-29-2025 End: 38-26-4309bucufzksobQetncqlm Ball DO Work Phone: [facility] Work Phone: Start: 04-29-2025 End: 09-95-0181Gfmzanh encounter procedureWalker Soria MD-[facility] Work Phone: Start: 04-28-2025 End: 67-95-3258Pmzfqn flowsheetMarshall Brink PTANOMS CI PTStart: 04-28-2025 End: 16-15-1710Mozqcy flowsheetMarshall Brink PTANOMS CI PTStart: 04-28-2025 End: 72-45-2656pwibiubppjJtvzdhen Brink PTANOMS CI PTComment on above:Greater trochanteric bursitis of left hip (Primary Dx); History of total hip arthroplasty, right; Left hip painStart: 04-25-2025 End: 42-46-4169Lbdlwv flowsheetMarshall Brink PTANOMS CI PTStart: 04-25-2025 End: 79-10-4219Twcftg flowsheetMarshall Brink PTANOMS CI PTStart: 04-25-2025 End: 84-82-2615wcodssifsdNttnrxzp Brink PTANOMS CI PTComment on above:Greater trochanteric bursitis of left hip (Primary Dx); History of total hip arthroplasty, right; Left hip painStart: 04-23-2025 End: 83-89-8157Pbotts flowsheetMelissa Kelbley PTANOMS CI PTStart: 04-23-2025 End: 77-83-5085Pbynec flowsheetMelissa Kelbley PTANOMS CI PTStart: 04-23-2025 End: 23-48-3063ixbtvfjduwOtbhxvj Kelbley PTANOMS CI PTComment on above:Greater trochanteric bursitis of left hip (Primary Dx); History of total hip arthroplasty, right; Left hip painStart: 04-21-2025 End: 86-83-2543Xdamfq flowsheetMelissa Kelbley PTANOMS CI PTStart: 04-21-2025 End: 95-91-8582Ybbszh flowsheetMelissa Kelbley PTANOMS CI PTStart: 04-21-2025 End: 05-44-8884ysvgrytcddDtuitkk Kelbley PTANOMS CI PTComment on above:Greater trochanteric bursitis of left hip (Primary Dx); History of total hip arthroplasty, right; Left hip painStart: 04-17-2025 End: 12-94-4471Nmfwvlh encounter Jose Flowers MD-[facility] Work Phone: Start: 04-17-2025 End: 33-28-3050Tccamn flowsheetMarshall Brink PTANOMS CI PTStart: 04-17-2025 End: 17-59-2422Jjiiiy flowsheetMarshall Brink PTANOMS CI PTStart: 04-17-2025 End: 20-49-6874fhalvhzskdJfesaate Brink PTANOMS CI PTComment on above:Greater trochanteric bursitis of left hip (Primary Dx); History of total hip arthroplasty, right; Left hip painStart: 04-15-2025 End: 44-17-6063djmqblccmzTkrlcl T Blacksollie PT Work Phone: noms CI PTComment on above:Greater trochanteric bursitis of left hip (Primary Dx); History of total hip arthroplasty, right; Left hip painStart: 04-14-2025 End: 09-52-6972tprkqyaqhjRDWYKR [facility] Start: 04-14-2025 End: 57-41-4617Ghrdlf flowsheetMarshall Brink PTANOMS CI PTStart: 04-14-2025 End: 42-80-1856Ihkdlq flowsheetMarshall Brink PTANOMS CI PTStart: 04-14-2025 End: 59-97-1748lefflarcjnFirjpomb Brink PTANOMS CI PTComment on above:Greater trochanteric bursitis of left hip (Primary Dx); History of total hip arthroplasty, right; Left hip painStart: 04-11-2025 End: 00-06-2433Gcicdo flowsheetMarshall Brink PTANOMS CI PTStart: 04-11-2025 End: 43-37-0452Vussdz flowsheetMarshall Brink PTANOMS CI PTStart: 04-11-2025 End: 13-24-7803cqxmzvyyqbMebaidpr Brink PTANOMS CI PTComment on above:Greater trochanteric bursitis of left hip (Primary Dx); History of total hip arthroplasty, right; Left hip painStart: 04-09-2025 End: 51-57-6956Qxptkn flowsheetMelissa Kelbley PTANOMS CI PTStart: 04-09-2025 End: 88-34-0663Tnoqiy flowsheetMelissa Kelbley PTANOMS CI PTStart: 04-09-2025 End: 33-17-2586wswlzhejpyVonvooa Kelbley PTANOMS CI PTComment on above:Greater trochanteric bursitis of left hip (Primary Dx); History of total hip arthroplasty, right; Left hip painStart: 75-14-3774Sxp-patient / Non-visitAbdul Lionel MD-[facility] Work Phone: Start: 04-07-2025 End: 23-11-8914nmbvqogwtcDngxdtg Kelbley PTANOMS CI PTComment on above:Greater trochanteric bursitis of left hip (Primary Dx); History of total hip arthroplasty, right; Left hip painStart: 04-07-2025 End: 42-37-3388Nzugzp flowsheetMelissa Kelbley PTANOMS CI PTStart: 04-07-2025 End: 88-90-3605Coacxz flowsheetMelissa Kelbley PTANOMS CI PTStart: 04-07-2025 [facility] 04-07-2025 End: 65-19-4603Iwnvouw encounter procedureTiennalbert Linda DO-[facility] Work Phone: Start: 04-04-2025 End: 09-65-4407Qynkot flowsheetMarshall Brink PTANOMS CI PTStart: 04-04-2025 End: 52-68-9922Ildbxw flowsheetMarshall Brink PTANOMS CI PTStart: 04-04-2025 End: 57-39-1303ussjwjrbzzDqcwjxaw Brink PTANOMS CI PTComment on above:Greater trochanteric bursitis of left hip (Primary Dx); History of total hip arthroplasty, right; Left hip painStart: 04-02-2025 End: 94-76-3200Tyhpoo flowsheetMarshall Brink PTANOMS CI PTStart: 04-02-2025 End: 63-95-2323Ydwmff flowsheetMarshall Brink PTANOMS CI PTStart: 04-02-2025 End: 26-53-6328cdytmkvrzrKzgnjzzm Brink PTANOMS CI PTComment on above:Greater trochanteric bursitis of left hip (Primary Dx); History of total hip arthroplasty, right; Left hip painStart: 03-31-2025 End: 09-26-8799Djlyec flowsheetKenny Aldana PT Work Phone: noms CI PTStart: 03-31-2025 End: 66-97-4381Mxsvfs tristanNeilthomas Aldana PT Work Phone: noms CI PTStart: 03-31-2025 End: 56-27-8356jiuhpeedhkBkcpxi T Blackston PT Work Phone: noms CI PTComment on above:Greater trochanteric bursitis of left hip (Primary Dx); History of total hip arthroplasty, right; Left hip painStart: 03-28-2025 End: 24-51-7171Rgrwab flowsheetJackelynshmicky Brink PTANOMS CI PTStart: 03-28-2025 End: 31-01-8170Mpcwxy flowsheetMarshall Brink PTANOMS CI PTStart: 03-28-2025 End: 40-06-2002yqqowaokgpMoezmucn Brink PTANOMS CI PTComment on above:Greater trochanteric bursitis of left hip (Primary Dx); History of total hip arthroplasty, right; Left hip painStart: 03-26-2025 End: 61-63-3000Nflwyc flowsSun Almodovar PTANOMS CI PTStart: 03-26-2025 End: 27-49-8138Dfsfbn flowsheetSherif Almodovar PTANOMS CI PTStart: 03-26-2025 End: 23-77-4144wwwimlukdtZounpap Lawrence PTANOMS CI PTComment on above:Greater trochanteric bursitis of left hip (Primary Dx); History of total hip arthroplasty, right; Left hip painStart: 03-25-2025 End: 08-39-7615cswpvhxskpHhnqyzyx Ball DO Work Phone: [facility] Work Phone: Start: 03-25-2025 End: 07-53-5380Mwgecxh encounter procedureBenjamin Ball DO-[facility] Work Phone: Start: 03-25-2025 End: 18-18-5288Odezxoss Ball DO Work Phone: [facility] Work Phone: start: 03-25-2025 End: 37-70-0991otqarlmgvsFNDOMiddletown Hospitaltart: 03-24-2025 End: 61-03-4100lportptzrjTizkgoc Kelbley PTANOMS CI PTComment on above:Greater trochanteric bursitis of left hip (Primary Dx); History of total hip arthroplasty, right; Left hip painStart: 03-24-2025 End: 05-62-0057Iyvcqg flowsheetNikkieissa Brennanbley PTANOMS CI PTStart: 03-24-2025 End: 00-76-2253Njzvrk flowsheetMelissa Kelbley PTANOMS CI PTStart: 03-21-2025 End: 76-90-6957Hbpcgp flowsheetJackelynshall Brink PTANOMS CI PTStart: 03-21-2025 End: 27-96-7478Rgupkg flowsheetMarshall Brink PTANOMS CI PTStart: 03-21-2025 End: 39-68-7899sxzwqglllrOvueohke Brink PTANOMS CI PTComment on above:Greater trochanteric bursitis of left hip (Primary Dx); History of total hip arthroplasty, right; Left hip painStart: 03-19-2025 End: 86-55-4930fbvoomawvwLzvbktMala Aldana PT Work Phone: noMS CI PTComment on above:Greater trochanteric bursitis of left hip (Primary Dx); History of total hip arthroplasty, right; Left hip painStart: 03-19-2025 End: 35-68-0840Jspxpd Carlito Aldana PT Work Phone: noMS CI PTStart: 03-19-2025 End: 77-10-6967Svdomh Carlito Aldana PT Work Phone: noMS CI PTStart: 12-57-5268yvgbmlnmtxGVTIPremier Health Miami Valley Hospital Northtart: 34-21-7832Glmqxerru for preprocedural cardiovascular examinationSt. Rita's Hospitaltart: 02-28-2025 End: 44-18-9076Bhtlccsa Result EncounterChivo Keller DO Work Phone: noms External Department UnsolicitedStart: 02-28-2025 End: 76-63-2474Icvqqwtz Result EncounterChivo Keller DO Work Phone: noms External Department UnsolicitedStart: 02-28-2025 Registered RecurringChivo Keller II [facility] [place] [facility] Work Phone: Start: [id number] Ball DO Work Phone: [facility] Work Phone: Start: 02-28-2025 End: 66-09-3951Aqxjtlu encounter procedureChivo Keller II [facility] Work Phone: Start: 02-28-2025 End: [id number] Ball DO Work Phone: [facility] Work Phone: Start: 02-25-2025 End: [id number] Ball DO Work Phone: [facility] Work Phone: Start: 02-25-2025 End: 16-99-2949Dzqtbtc encounter procedureThsekou Soria MD-[facility] Work Phone: Start: 02-25-2025 End: [id number] Ball DO Work Phone: [facility] Work Phone: Start: 02-24-2025 End: 31-48-0385Yplfbdcq Result EncounterChivo Keller DO Work Phone: noms External Department UnsolicitedStart: 02-24-2025 End: 08-88-4549Mvxdxtgl Result EncounterChivo Keller DO Work Phone: [facility] External Department UnsolicitedStart: 02-24-2025 Yas Ball DO Work Phone: [facility] Work Phone: Start: 02-21-2025 End: 46-54-7292Jzmchb flowsheetAnthony S Rusher DPM Work Phone: noms PODIATRYStart: 02-21-2025 End: 47-01-1903Wbxttx flowsheetAnthony S Rusher DPM Work Phone: noms PODIATRYStart: 02-21-2025 End: 47-25-3013Zcdtou outpatient new 30 minutesAnthony S Rusher DPM Work Phone: noms PODIATRYComment on above:Diabetic polyneuropathy associated with type 2 diabetes mellitus (CMS/HCC) (Primary Dx); Onychodystrophy; OnychomycosisStart: 02-21-2025 End: 21-31-4694nbcimqumsuRIAYJZG S RUSHERNot AvailableStart: 37-87-2107Ywv- patient / Non-visitBenjamin Ball DO-[facility] Work Phone: Start: 66-07-8703Yewxqqnq Ball DO Work Phone: [facility] Work Phone: Start: 01-28-2025 End: 94-69-1935ituixwoxjsHpdlczjj Ball DO Work Phone: [facility] Work Phone: Start: 01-28-2025 End: 84-54-7364Zyebmvk encounter procedureBenjamin Ball DO-[facility] Work Phone: Start: 01-28-2025 End: 43-96-7345Hcjiuwmi Ball DO Work Phone: [facility] Work Phone: Start: 01-28-2025 End: 20-05-3100aparyvkgenVHGLDBK [facility] Healthtart: 01-27-2025 End: 37-44-5643Miynkzawq encounterConnie Dunham CMAPHN [facility] CenteroStart: 69-96-4961nklrjzsjqjYTUG CHAValentinaDetwiler Memorial Hospitaltart: 01-20-2025 End: 46-67-9530uhsrnhbeysRyozmhvj Ball DO Work Phone: [facility] Work Phone: Start: 01-20-2025 End: 06-89-3465Sixhtgm encounter Jose Flowers MD-[facility] Work Phone: Start: 01-20-2025 End: 84-46-2377Uqzlnhuw Ball DO Work Phone: [facility] Work Phone: Start: 01-16-2025 End: 42-50-4198slalstuvvlVeptkroi Ball DO Work Phone: [facility] Work Phone: Start: 01-16-2025 End: 57-50-1673Rdzhsgdg Ball DO Work Phone: [facility]-Lab [facility] Work Phone: Start: 01-14-2025 End: 76-51-5584Fqnqkezb Ball DO Work Phone: [facility] Work Phone: Start: 01-14-2025 End: 10-76-3417nvfteocrsyCzbthkxb Ball DO Work Phone: [facility] Work Phone: Start: 40-04-8329Nwqmsmws Ball DO Work Phone: [facility] Work Phone: Start: 10-48-4586Iknkgzmr Ball DO Work Phone: [facility] Work Phone: Start: 61-64-4663Nvejiujg Ball DO Work Phone: [facility] Work Phone: Start: 83-47-2655Lplhizze Ball DO Work Phone: [facility] G[facility] Work Phone: Start: 04-93-0075Qfzildqa Ball DO Work Phone: [facility] Work Phone: Start: 40-20-9401Pbvvgfxy Ball DO Work Phone: [facility] Work Phone: Start: 12-27-2024 End: 23-37-6667Lryjrhyq Ball DO Work Phone: [facility] Work Phone: Start: 12-27-2024 End: 72-66-2102Upncoxzzxs and management of inpatientBenjamin Ball DO Work Phone: [facility] Work Phone: Start: 19-70-2051qsubwhzkefHCRPMiddletown Hospitaltart: 10-20-3951Fnm-patient / Non-visitBenjamin Ball DO Work Phone: [facility] Work Phone: Start: 41-66-2797Nhaeafxk Ball DO Work Phone: [facility] Work Phone: Start: 45-56-7579Wkv-patient / Non-visitBenjamin Ball DO Work Phone: [facility] Work Phone: Start: 13-47-7913Lfncoxyk Ball DO Work Phone: [facility] Work Phone: Start: 68-68-7059Ebv-patient / Non-visitBenjamin Ball DO Work Phone: [facility] Work Phone: Start: 92-47-0464Bjuaizbr Ball DO Work Phone: [facility] Work Phone: Start: 47-12-4926Rmg-patient / Non-visitBenjamin Ball DO Work Phone: [facility] Work Phone: Start: 89-07-4150Asfipeua Ball DO Work Phone: [facility] Work Phone: Start: 99-57-4316Ouuwlorr Ball DO Work Phone: [facility] Work Phone: Start: 12-21-2024 End: 81-24-8657Hkviraad Ball DO Work Phone: [facility] Work Phone: Start: 12-21-2024 End: 08-90-3174Idrnqyuvjq and management of inpatientBenjamin Ball DO Work Phone: [facility] Work Phone: Start: 41-08-1797Cyr-patient / Non-visitBenjamin Ball DO Work Phone: [facility] Work Phone: Start: 17-28-7174Ugmrbgvm Ball DO Work Phone: [facility] Work Phone: Start: 12-19-2024 End: 14-78-8368ifjewwmuoeQajowfmjaProMedica [facility] Hospital Work Phone: Start: 12-19-2024 End: 75-82-8006Jxfdarn encounter procedureGood [facility] Work Phone: Start: 12-19-2024 End: 85-21-2816Hyeqmnns Ball DO Work Phone: [facility] Work Phone: Start: 12-04-2024 End: 72-85-2393Kfiqth flowsheetMarilin Clay CCC-A Work Phone: NOMS CI AUDStart: 12-04-2024 End: 51-56-3765Tngala flowsheetSclaamber Clay CCC-A Work Phone: [facility] CI AUDStart: 12-04-2024 End: 03-99-5048Rlfjyhiw SupportDelaamber Jay Jay Lashae CCC-A Work Phone: NOMS CI AUDComment on above:Sensorineural hearing loss (SNHL) of both ears (Primary Dx)Start: 51-72-2148rdcrkaewtrDPTWOhio State East Hospitaltart: 11-13-2024 End: 97-51-0174rysnafwdhjNWEUFOTAccess Hospital Daytontart: 13-59-3139Xav-patient / Non-visitGood [facility] Hospital Physician GroupOd[facility] Work Phone: Start: 88-61-6781Jhmepnyc Ball DO Work Phone: [facility] GroupOd[facility] Work Phone: Start: 78-58-1877bramsmntenEAVNSt. Rita's Hospitaltart: 42-12-5305rcpjsakfieKFNESt. Rita's Hospitaltart: 10-17-2024 End: 01-90-5701pwjsfwzqgaVHIFSt. Rita's Hospitaltart: 99-98-8405Krq-patient / Non-visitFircentra [facility] Work Phone: Start: 33-24-1778qtacgnmuuvNSCTSt. Rita's Hospitaltart: 03-94-0822wnrpqggebeVBTSSt. Rita's Hospitaltart: 37-67-0302zpkigngsczPUNVSt. Rita's Hospitaltart: 09-10-2024 End: 43-14-0057ogammxpibxNXPJSt. Rita's Hospitaltart: 12-38-2924vspgzgbfokTJMKSt. Rita's Hospitaltart: 08-22-2024 End: 20-69-7248ogmjckajiiNvioqrhk BallFacility:[facility] Start: 08-21-2024 End: 19-96-8832Zpihci flowsSaurav SagastumeBon Secours [facility]-A Work Phone: N[facility]S CI AUDStart: 08-21-2024 End: 62-21-6722Yoibfq flowsheetMarilin Goyal [facility]-A Work Phone: N[facility]S CI AUDStart: 08-21-2024 End: 81-17-1284Ritvgisa SupportDenoel Goyal [facility]-A Work Phone: NOMS CI AUDComment on above:Bilateral impacted cerumen (Primary Dx)Start: 08-08-2024 End: 82-64-4134Mlyuel outpatient visit 25 minutesAvery Syed MD Work Phone: [facility] Comment on above:Stage 4 chronic kidney disease (CMS-HCC) (Primary Dx)Start: 69-82-6019hjccpxiomvUKKA LALOOUnDetwiler Memorial Hospitaltart: 07-09-2024 End: 33-28-9628Pqhrre flowsheetNicole Pancho DO Work Phone: noms [address] [address] R[address]TEStart: 07-09-2024 End: 49-09-4104Sbhpsq flowsheetNicole Pancho DO Work Phone: noms [address] [address]TEStart: 07-09-2024 End: 81-90-9306Byrlja outpatient visit 25 minutesNicole Pancho DO Work Phone: noms [address] [address] R[address]TEComment on above:MOLINA (obstructive sleep apnea) (Primary Dx); Hypersomnia; Primary insomnia; Snoring; HypoxiaStart: 07-09-2024 End: 11-02-1896sczgsalcqrNCXTPF DANNERNot AvailableStart: 04-29-2024 End: 05-54-1237Asygvcmru encounterScanning Provider ExternalPHN [facility] CenteredoStart: 04-22-2024 End: 48-87-0653msujgjcrqbES Yas Linda Work Phone: [facility] Work Phone: Start: 04-22-2024 End: 21-49-7731Jdephzy encounter procedureDO Yas Linda Work Phone: [facility] Work Phone: Start: 03-01-2024 End: 19-06-3236jlvvsmfozwCW Yas AdReady Work Phone: [facility] Work Phone: Start: 03-01-2024 End: 20-42-9330Uzpijqx encounter procedureDO Yas Linda Work Phone: [facility] Work Phone: Start: 22-71-5062Mmgurhxfwf RecurringDO Yas Linda Work Phone: [facility] Work Phone: start: 02-08-2024 End: 72-28-6696Ympyum outpatient visit 25 minutesAvery Syed MD Work Phone: [facility] Comment on above:Stage 4 chronic kidney disease (CMS-HCC) (Primary Dx)Start: 75-59-1379Jqm-patient / Non-visitDO Yas Linda Work Phone: [facility] Work Phone: Start: 01-26-2024 End: 58-87-7571Uhyvxlxwz encounterLaqudaya Osullivan CMAPHN [facility] ToledoStart: 20-35-1129Nff-patient / Non-visitDO Yas Linda Work Phone: [facility] Work Phone: Start: 12-18-2023 End: 12-86-1517hktrqtigavGualdiuj Ball Other [facility] Other Start: 40-51-9430Rnntnsmsy encounterBenjamin PeymanG [facility] ClinicStart: 12-18-2023 End: 33-84-6620Fdnlhkx encounter procedureDO Yas Linda Work Phone: [facility] Work Phone: Start: 09-29-2023 End: 25-26-8285pugrjdswcsAlowngjq Ball Other noLibox Miner Other Start: 07-82-6421Yddfoqeku encounterBenjamin PeymanG [facility] ClinicStart: 09-01-2023 End: 97-05-0788budoqejgnvMC Yas Ball Work Phone: [facility] Work Phone: Start: 09-01-2023 End: 54-46-2281Gcjnizkbat RecurringDO Yas Ball Work Phone: [facility] Work Phone: Start: 08-27-2023 End: 58-19-6136khknojolckGcnxwgbs Ball Other [employer] Other Start: 50-22-1924Ikmnsnmjh encounterBenjamin BallFPG [facility] ClinicStart: 08-22-2023 End: 76-27-7209gkipebutkaUcucnfke Ball Other [employer]Life [employer] Other Start: 54-52-4469Xvajlv outpatient visit 25 minutes Yas BallFPG [facility] ClinicStart: 07-03-2023 End: 54-24-9740qadyubunrxJqnytfbk Ball Other [employer]Libox Miner Other Start: 87-05-5808Wesjhagip encounterBenjamin BallFPG [facility] ClinicStart: 07-01-2023 End: 13-60-1163oaivvwdhpvRyeutaur Ball Other [facility] Other Start: 59-90-4800Bukfhcyow encounterBenjamin BallFPG [facility] ClinicStart: 06-22-2023 End: 01-99-3640edwqsswlkeYbeoalov Ball Other [employer]Des[employer] Other Start: 47-01-1413Rhkdgkscr encounterBenjamin BallFPG [facility] ClinicStart: 06-12-2023 End: 14-95-9528ltxufprfteEwavhqvu Ball Other [employer] Other Start: 48-02-7088Sksnydwlh encounterBenjamin BallFPG [facility] ClinicStart: 04-26-2023 End: 32-74-1125vzejtpvxrqOsbfmnno Ball Other [employer] Other Start: 54-19-2043Yclcqkueb encounterBenjamin BallFPG [facility] ClinicStart: 04-20-2023 End: 32-77-1772atxgctwmefEmomnrsq Ball Other [employer] Other Start: 68-69-6463Vrqjyi outpatient visit 25 minutes Yas BallFPG [facility] ClinicStart: 03-14-2023 End: 59-87-0345zhmvxwornjEdyaniqk Ball Other [employer] Other Start: 00-26-6012Atvledxny encounterBenjamin BallFPG [facility] ClinicStart: 02-28-2023 End: 76-58-6591uonwashtczHT DOCTOR MISCFacility:L7Yooxm: 83-38-2158Pdcyhpjjt encounterBenjamin BallFPG [facility] ClinicStart: 02-15-2023 End: 22-62-1776eqyvrgbgddOW DOCTOR MISCNorth Miner Other Start: 02-14-2023 End: 56-38-1358lvyxfqnmnlOckcagnu Ball Other [employer] Other Start: 07-03-3090Sfmwkysqg encounterBenjamin BallFPG [facility] ClinicStart: 01-11-2023 End: 78-76-2646nszdjbzknnGvawtnok Ball Other [employer] Other Start: 45-03-8258Ymkolb outpatient visit 15 minutes Yas BallFPG [facility] ClinicStart: 01-02-2023 End: 85-75-4284tlbduzbqcaTRMCM L FLICKINGER MDFacility:P1Ggukq: 12-15-2022 End: 51-86-2267otzwhlmpwsEwsohnfk Ball Other [employer] Other Start: 15-93-5145Cqyfobf encounter procedureBenjamin BallFPG [facility] ClinicStart: 11-16-2022 End: 64-06-6122zdgvmlsiceDV YAS BALLFacility:R8Huobo: 11-14-2022 End: 93-06-5593guniedqnbrHkuksbyw Ball Other [place] [employer] Other Start: 49-75-8628Gnuhfkcxc encounterBenalbert Linda Medical ClinicStart: 10-03-2022 End: 93-41-3613flrcyjzrakER YAS BALLFacility:J0Xsfso: 09-22-2022 End: 12-33-4465kattsrnxzmBH DOCTOR MISCFacility:D6Owiym: 09-09-2022 End: 49-14-6816uwivdkcitcYO DOCTOR MISCFacility:J9Qeftv: 09-02-2022 End: 35-97-0296qrtdreoppwPI Yas Ball Work Phone: [facility] Work Phone: Start: 09-02-2022 End: 11-80-7221Tqclrrdafe RecurringDO Yas Linda Work Phone: [facility]-Cancer CenterStart: 08-30-2022 End: 71-80-8891tsfzkgxguvWS YAS BALLFacility:A0Lbwel: 07-21-2022 End: 80-37-8736Cttzmklwg to same day surgery center Yas Linda Work Phone: [facility]-Digestive HealthStart: 07-21-2022 End: 36-23-1546jczzzohiptSR Yas Ball Work Phone: [facility] Work Phone: Start: 07-20-2022 End: 67-36-4815puolqemptaIR YAS BALLFacility:J6Gjjgz: 07-19-2022 End: 48-76-1756hlkglqpuycXJ Yas Ball Work Phone: [facility] Work Phone: Start: 07-19-2022 End: 37-17-2166Qdjjesr encounter procedureDO Yas Linda Work Phone: [facility]-Pre-Surgical Testing Start: 89-10-9764vuqflbuktwUC ADAN SELMARBELFacility:Z4Gbjtl: 01-17-3345Hgamk health examinationBenalbert Linda Other [place] [employer] Other Start: 11-99-4352Sfmagtdxnq RecurringDO Yas Linda Work Phone: [facility]-Cancer CenterStart: 06-03-2022 End: 51-67-1287Kevidyajzm RecurringDO Yas Linda Work Phone: [facility]-Cancer CenterStart: 05-31-2022 End: 46-18-3640Kygxoie encounter procedureDO Yas Linda Work Phone: [facility]-Lab Main CampusStart: 05-12-2022 End: 49-69-0729asmsvdlobmSIPAQ L FLICKINGER MDFacility:N7Ujmbd: 05-10-2022 End: 97-91-4453muvjzhtkdpXFPXOWO BOESFacility:B0Uqfuj: 04-26-2022 End: 94-76-2147peygazqpczFW MISCFacility:B9Hdhqx: 04-11-2022 End: 82-82-0359frplernyvnPK YAS BALLFacility:A1Ovzee: 04-08-2022 End: 09-48-5039amqqnqgrgiZR YAS BALLFacility:T9Cstli: 03-30-2022 End: 56-90-9198Jdgbucrtvp and management of inpatientASIF MAHMOODFacility:[facility] Start: 03-25-2022 End: 05-11-6380mkfypuvxndXVDYKNH TUCKERFacility:C0Xphxq: 47-06-6394nrisigtoyc ENRRIQUE JORGEERFacility:X3Txebz: 03-06-2022 End: 76-51-7787Zqodksasty and management of inpatientDR RUPINDER GRIGSBY . Facility:L5Lcsmo: 03-04-2022 End: 35-58-9231lwrgymraaqAJ YAS LINDAFacility:J4Awocj: 08-17-2021 End: 49-64-3335Rbv-procedure evaluation checkBecyril Linda Other [place] [employer] Other Start: 51-68-3578YypshhyceedHX Yas Linda Work Phone: [facility] Procedures DateProcedureProcedure DetailPerforming ClinicianStart: 05-30-2025 Carcinoembryonic antigen ceaChivo Keller DO Work Phone: Comment on above:Serial tumor marker results determined by assays using different manufacturers or methods may not be comparable. [facility] Accuradio skinning machine feeder and method: Go Kin PacksEL DXI, 2 SITE IMMUNOENZYMATIC SANDWICH ASSAY. Start: 53-15-7211Ekncxqkvlpjwxcyc antigen ceaChivo Keller DO Work Phone: Comment on above:Result Comment: Serial tumor marker results determined by assays using different manufacturers or methods may not be comparable. [facility] [employer]ur[employer] skinning machine feeder and method: Go Kin PacksEL DXI, 2 SITE IMMUNOENZYMATIC ?SANDWICH? ASSAY. PERFORMED BY: [place] [address] PATHOLOGIST ENGAGEMENT LIAISON LOGAN RUIZ M.D.Performed By: #### RENAL, CBC #### [place] [address] USAStart: 28-72-2050Qhobwtev blood count with white cell differential, automatedTimdomo Keller DO Work Phone: Start: 07-34-5833GBFVCNAABNILC (EPO), SERUMTimdomo Keller DO Work Phone: Start: 69-79-0582Vwobzmqgyyv of carcinoembryonic antigen in body fluid specimenBecyril Linda DO Work Phone: Comment on above:Serial tumor marker results determined by assays using different manufacturers or methods may not be comparable.[facility] Accur[employer] skinning machine feeder and method:Go Kin PacksEL DXI, 2 SITE IMMUNOENZYMATICSANDWICH ASSAY.Start: 56-99-0396Rdkwlvvp blood count with white cell differential, automatedChivo Keller DO Work Phone: Start: 25-95-3078Bagpu x-ray of pelvis and lower extremityBenjamin Ball DO Work Phone: Start: 50-97-3344Nexhmqhgvjjyxrwh antigen ceaChivo Keller DO Work Phone: Comment on above:Serial tumor marker results determined by assays using different manufacturers or methods may not be comparable. [facility] Laboratory skinning machine feeder and method: LASHELL UNICEL DXI, 2 SITE IMMUNOENZYMATIC SANDWICH ASSAY. Start: 06-91-2800Cdelxrtszdyygqlk antigen ceaChivo Keller DO Work Phone: Comment on above:Result Comment: Serial tumor marker results determined by assays using different manufacturers or methods may not be comparable. [facility] Laboratory skinning machine feeder and method: LASHELL LoggedInEL DXI, 2 SITE IMMUNOENZYMATIC ?SANDWICH? ASSAY. PERFORMED BY: [place] [address] PATHOLOGIST ENGAGEMENT LIAISON KRISTEL LU M.D.Performed By: #### RENAL, CBC #### [place] [address] USAStart: 27-17-7833EYYKHRJMJNPQF (EPO), SERUMChivo Keller DO Work Phone: Start: 19-05-5665Smrcxcszvrf of carcinoembryonic antigen in body fluid specimenBenjamin Ball DO Work Phone: Comment on above:Serial tumor marker results determined by assays using different manufacturers or methods may not be comparable.[facility] Laboratory skinning machine feeder and method:LASHELL UNICEL DXI, 2 SITE IMMUNOENZYMATICSANDWICH ASSAY.Start: 04-32-8599CR of abdomen and pelvis without contrastBenjamin Ball DO Work Phone: Start: 29-17-6714XW of chest without contrastBenjamin Ball DO Work Phone: Start: 68-37-5068Ukkns X-ray of right hipBenjamin Ball DO Work Phone: Start: 86-88-1165Rjfboxipu for occult blood in feces Yas Ball DO Work Phone: Start: 08-69-9977Pwyfckdi screenBenjamin BallComment on above:Order Comment: Transfuse now? Y Number of units to transfuse now? 2 Transfuse now? Y Number of units to transfuse now? 1 Transfuse now? Y Number of units to transfuse now? 1 Transfuse now? Y Number of units to transfuse now? 1Result Comment: PERFORMED BY: [facility] [address] [place] [address] PATHOLOGIST ENGAGEMENT LIAISON KRISTEL LU M.D.Start: 21-27-1805Dllfrg scan of lower limb veins Yas Ball DO Work Phone: Start: 94-99-4052Dhgmk X-ray of right hipBenjamin Ball DO Work Phone: Start: 55-38-9642Mulij chest X-rayBenjamin Ball DO Work Phone: start: 02-58-8392I-ray of right ankleBenjamin Ball DO Work Phone: Start: 77-20-0874X-ray of right knee, two views Yas Ball DO Work Phone: start: 13-11-7435Cmdby X-ray of right hipBenjamin Ball DO Work Phone: Start: 05-52-2536Zfvkqaw hip replacement with bipolar prosthesisBenjamin Ball DO Work Phone: Start: 49-99-4874Idkyg chest X-rayBenjamin Ball DO Work Phone: Start: 44-25-7778Ubyloskr screenBenjamin BallComment on above:Order Comment: expiring BB band Transfuse now? Y Number of units to transfuse now? 1 Transfuse now? Y Number of units to transfuse now? 1Result Comment: PERFORMED BY: [facility] [address] [place] [address] PATHOLOGIST ENGAGEMENT LIAISON KRISTEL LU M.D.Start: 42-03-7199Ilzgz immunofixationBenjamin Ball DO Work Phone: Comment on above:No monoclonality detected.Start: 75-29-7479XD of abdomen and pelvis without contrastDO Yas Ball Work Phone: Start: 66-29-5976VO of chest without contrastDO Yas Ball Work Phone: Start: 09-65-0911ZH of abdomen and pelvis without contrastDO Yas Ball Work Phone: Start: 06-74-1261RS of chest without contrastDO Yas Ball Work Phone: Start: 48-09-4234OE of abdomen and pelvis without contrastDO Yas Ball Work Phone: Start: 22-95-7315SE of chest without contrastDO Yas Ball Work Phone: Start: 36-31-0094MTS screeningMELISSA BOESComment on above:Performed By: #### FT4, PSASC #### [facility] [address] [place] [address] Dr. Benito SchwartzStart: 42-25-8573NF of abdomen and pelvis without contrastDO Yas Ball Work Phone: Start: 63-03-3369JY of chest without contrastDO Yas Ball Work Phone: Start: 57-00-0986ZhwaeepnusxFB Yas Ball Work Phone: Start: 57-21-3195UN of abdomen and pelvis without contrastDO Yas Ball Work Phone: Start: 87-49-9516OP of chest without contrastDO Yas Ball Work Phone: Start: 95-81-2081Lipeamnl tomography of abdomen and pelvis with contrastDO Yas Ball Work Phone: Start: 32-37-5053QD of thorax with contrastDO Yas Ball Work Phone: Start: 54-82-6943Uckxcdmgtd test result abnormal Yas Linda Other Start: 69-95-7556Wzlzjpdmr for malignant neoplasm of colonYas Linda Other Start: 45-82-2434Qwr-surgery evaluationBecyril Linda Other Start: 51-36-0401Etidkwnzgdxq cardiovascular examinationYas Linda Other Start: 34-01-7636Unruiznhv for malignant neoplasm of prostateYas Linda Other Depression screeningYas Linda Other SARS Antigen (LFIA)DO Yas Linda Work Phone: Screening for malignant neoplasm of prostateYas Linda Other Plan of Treatment DateCare ActivityDetailAuthorStart: 08-27-2025 End: 75-82-4517Kdeukbh encounter isdftjycb51/12/2025 9:45 AM EST Procedure Visit [facility] [address] [facility] [place] [id number] Emely Ramon, DPCanelo [address] [place] [address] [facility] Gonzalez PodiatryStart: 08-34-7564Fxywyti ScreeningTobacco ScreeningLakeHealth [facility] SystemStart: 07-07-2025 End: 82-85-2457Nhgwgzs encounter sqtajybrt95/22/2025 10:30 AM EDT Office Visit [facility] HERMAN [address] [place] [address] Sidra Tello DO [address] [place] [id number] [facility] URIARTEtart: 15-31-6186Gkpoyodje vaccinationAkron [facility] Hospital[facility] Start: 05-26-2025 End: 26-19-7206bitbdorsxnPJOS CI PTStart: 05-26-2025 End: 36-47-9778Rmicbgp encounter procedureNOMS FH PODIATRYComment on above: ArrivedStart: 05-23-2025 End: 11-97-5503zhhwjwqojuMROG CI PTComment on above:ArrivedStart: 05-21-2025 End: 36-21-0852gpfhkciwlmVXCD CI PTComment on above:ArrivedStart: 05-19-2025 End: 98-29-5507flntmyzfybDJUB CI PTComment on above:ArrivedStart: 05-16-2025 End: 20-81-0652awrnorxcybNBZD CI PTComment on above:ArrivedStart: 05-14-2025 End: 97-72-4397ooainwmccuZQRI CI PTComment on above:Greater trochanteric bursitis of left hip (Primary Dx); History of total hip arthroplasty, right; Left hip painStart: 05-12-2025 End: 38-47-2166ychzvsqqitVBPH CI PTComment on above:ArrivedStart: 05-09-2025 End: 29-53-8547ckrzddoszn47/25/2025 2:30 PM EDT Treatment [facility] [address] [facility] [address] [place] [address] Fermin Sánchez, ROAD HOGGER OPERATOR [facility] CI PTStart: 05-09-2025 End: 65-10-2698tmfeylqbfj39/25/2025 12:30 PM EDT Treatment [facility] [address] [facility] [address] [place] [address] Nikkie Sánchezissa, ROAD HOGGER OPERATOR ArrivedNOMS CI PTComment on above:ArrivedStart: 05-09-2025 End: 59-92-2832imxhmuhkqq51/25/2025 10:30 AM EDT Treatment [facility] [address] [facility] [address] [place] [address] Fermin Sánchez, ROAD HOGGER OPERATOR [facility] CI PTStart: 05-07-2025 End: 96-55-0109bjouwsnfbeMIED CI PTComment on above:ArrivedStart: 05-05-2025 End: 83-16-4158uxjpxmzdpsHWXU CI PTComment on above:ArrivedStart: 2025 End: 53-80-3745yobkvgeszmLQDH CI PTComment on above:ArrivedStart: 04-30-2025 End: 41-61-4591glpjnvkkodTYKI CI PTComment on above:Greater trochanteric bursitis of left hip (Primary Dx); History of total hip arthroplasty, right; Left hip painStart: 04-28-2025 End: 63-21-9224twbritbwxcJSEX CI PTComment on above:ArrivedStart: 04-25-2025 End: 34-78-5855crmepfjvipSUAO CI PTComment on above:ArrivedStart: 04-23-2025 End: 35-51-3057clikthrcgw72/09/2025 12:30 PM EDT Treatment [facility] CI PT [address] [facility] [address] [place] [address] Fermin Sánchez PTA NOMS CI PTStart: 04-21-2025 End: 32-03-1334fhfhbesoilQEHT CI PTComment on above:ArrivedStart: 04-17-2025 End: 77-33-1756nswjlajjmfCWXB CI PTComment on above:Greater trochanteric bursitis of left hip (Primary Dx); History of total hip arthroplasty, right; Left hip painStart: 04-15-2025 End: 41-36-8523vrimmrctyb20/01/2025 8:30 AM EDT Treatment [facility] CI PT [address] [facility] [address] [place] [address] Kenny Aldana, PT [address] [facility] [address] [place] [address] NOMS CI PTStart: 04-14-2025 End: 68-53-7013gjtnrvezxcIINY CI PTComment on above:ArrivedStart: 04-11-2025 End: 25-89-0131raphthkyvaGTRM CI PTComment on above:Greater trochanteric bursitis of left hip (Primary Dx); History of total hip arthroplasty, right; Left hip painStart: 04-09-2025 End: 70-59-7566obhwnymtloDKGA CI PTComment on above:ArrivedStart: 04-07-2025 End: 94-16-8870tuuroxvnexJZFJ CI PTComment on above:Greater trochanteric bursitis of left hip (Primary Dx); History of total hip arthroplasty, right; Left hip painStart: 04-04-2025 End: 64-58-7030wvbyelfosxTFCX CI PTComment on above:Greater trochanteric bursitis of left hip (Primary Dx); History of total hip arthroplasty, right; Left hip painStart: 04-02-2025 End: 88-84-8802ebgqwjnduyABIE CI PTComment on above:ArrivedStart: 03-31-2025 End: 39-86-1301jhmjyrpnikYHVW CI PTComment on above:ArrivedStart: 03-28-2025 End: 11-56-6371kzyuenvizpZZKK CI PTComment on above:ArrivedStart: 03-26-2025 End: 09-99-5686qqntnnbpnnUHBG CI PTComment on above:ArrivedStart: 03-24-2025 End: 59-96-6666cpozhdgjorUFKW CI PTComment on above:Greater trochanteric bursitis of left hip (Primary Dx); History of total hip arthroplasty, right; Left hip painStart: 03-24-2025 End: 68-44-8446erckhjyfog21/09/2025 11:30 AM EDT Treatment [facility] CI PT [address] [facility] [address] [place] [address] Kilo Andrews PTA NOMS CI PTStart: 03-21-2025 End: 03-99-5048mevubqvhxeWTPN CI PTComment on above:Greater trochanteric bursitis of left hip (Primary Dx); History of total hip arthroplasty, right; Left hip painStart: 03-19-2025 End: 19-79-0374oolzrwhshn12/04/2025 3:00 PM EDT Evaluation [facility] CI PT [address] [facility] [address] [place] [address] Kenny Aldana, PT [address] [facility] [address] [place] [address] ArrivedBISHOPNORTHEAST[facility] PTComment on above:ArrivedStart: 03-05-2025 End: 19-10-9968Sssjrgqv Aatpetr0803/05/2025 1:00 PM EDT Clinical Support [facility] AUD [address] [place] [address] Marilin Clay, [facility] [address] [place] [address] NOMS CI AUDStart: 05-77-9563Vswdk x-ray of pelvis and lower extremityEast Ohio Regional Hospitaltart: 43-18-8109ZP Pelvis and Hip - bilateral ViewsEast Ohio Regional Hospitaltart: 02-21-2025 End: 70-83-2122Phiqmpz encounter mysgluvge13/09/2025 10:45 AM EDT Office Visit [facility] POD[facility]AT[facility] [address] [place] [address] Emely Ramon, DPM [address] [place], [place] [address] ArrivedBISHOPMERCY [facility] PODIATRYComment on above:ArrivedStart: 40-38-0226Iuica BMI ScreeningAdult BMI ScreeningLakeHealth TriPoint Medical Center SystemStart: 02-06-2025 End: 95-98-4000Qvlkd metabolic 2000 panel - Serum or PlasmaBasic Metabolic Panel Lab Routine Stage 4 chronic kidney disease ([facility]) Expected: 02/06/2025 (Giovanni roximate), Expires: 08/08/2025[facility] Work Phone: Comment on above:Expected: 02/06/2025 (Approximate), Expires: 08/08/2025Start: 02-06-2025 End: 14-88-0407UAX panel - Blood by Automated countCBC without diff Lab Routine Stage 4 chronic kidney disease ([facility]) Expected: 02/06/2025 (Approximate), Expires: 08/08/2025ProCleveland Clinic Children'S Hospital For Rehabilitation SystemComment on above:Expected: 02/06/2025 (Approximate), Expires: 08/08/2025Start: 02-06-2025 End: 27-03-7921Bbvnbjmgu [Mass/volume] in Serum or PlasmaMagnesium Lab Routine Stage 4 chronic kidney disease ([facility]) Expected: 02/06/2025 (Approximate), E xpires: 08/08/2025[facility] SystemComment on above:Expected: 02/06/2025 (Approximate), Expires: 08/08/2025Start: 02-06-2025 End: 30-73-1709Uextfhwgaxk Hormone, intactParathyroid Hormone, intact Lab Routine Stage 4 chronic kidney disease ([facility]) Expected: 02/06/2025 (Approximate), Expires: 08/08/2025[facility] SystemComment on above: Expected: 02/06/2025 (Approximate), Expires: 08/08/2025Start: 02-06-2025 End: 54-69-7708Dkhibpgsy [Mass/volume] in Serum or PlasmaPhosphorus Lab Routine Stage 4 chronic kidney disease ([facility]) Expected: 02/06/2025 (Approximate), Expires: 08/08/2025[facility] SystemComment on above:Expected: 02/06/2025 (Approximate), Expires: 08/08/2025Start: 02-06-2025 End: 69-58-7177Vxwkakk creat ratioProtein creat ratio Lab Routine Stage 4 chronic kidney disease ([facility]) Expected: 02/06/2025 (Approximate), Expires: 08/08/2025[facility] SystemComment on above:Expected: 02/06/2025 (Approximate), Expires: 08/08/2025Start: 34-40-5915Wbiax X-ray of right hip [facility] Hospitaltart: 69-33-8918YA Hip - right 2 Views [facility] Hospitaltart: 70-25-5708KlnqcihrlEast Ohio Regional Hospitaltart: 49-46-6594Gophmjgp to gastroenterologistEast Ohio Regional Hospitaltart: 75-72-5601Fnhummni to nephrologistAv[facility] Start: 71-60-2386Fhppupvy admissionEast Ohio Regional Hospitaltart: 77-30-3888Rmwuervx to clinical allergistEast Ohio Regional Hospitaltart: 34-75-9671DaqvxxlcbEast Ohio Regional Hospitaltart: 21-71-1451Rhoogaay to nephrologistEast Ohio Regional Hospitaltart: 51-27-5694Fmcrclzx to rehabilitation physicianEast Ohio Regional Hospitaltart: 12-22-2024 Referral to Social ServicesEast Ohio Regional Hospitaltart: 12-22-2024 Hospital admissionEast Ohio Regional Hospitaltart: 21-77-3810Usheqgozwlqn [facility] Hospitaltart: 00-12-6663EpsswugflEast Ohio Regional Hospitaltart: 12-04-2024 End: 33-22-5557Kxqjetag Febgizu6212/04/2024 1:00 PM EST Clinical Support [facility] CI AUD [address] [place] [address] Marilin Clay, [facility] [address] [place] [address] NOMS CI AUDStart: 95-75-9427Jgjqj BMI ScreeningAdult BMI ScreeningProHolzer Hospitaltart: 08-21-2024 End: 76-26-8236Ajgcqigq SupportNOMS CI AUDComment on above:ArrivedStart: 08-15-2024 End: 68-95-2152Rdpdrgb creat ratioProtein creat ratio Lab Routine Stage 4 chronic kidney disease ([facility]) Expected: 08/15/2024 (Approximate), Expires: 08/08/2025ProCleveland Clinic Children'S Hospital For Rehabilitation SystemComment on above:Expected: 08/15/2024 (Approximate), Expires: 08/08/2025Start: 08-08-2024 End: 01-73-6137Rzmxehk encounter gyfbapkjo84/24/2024 10:30 AM EDT Office Visit [facility] [address] [place] [address] Avery Syed MD [address] [place] [address] [facility]: 07-09-2024 End: 08-59-6375Nksmriv encounter fhpbrymsx92/24/2024 10:30 AM EDT Office Visit [facility] [address] [place] [address] Sidra Tello, [address] [place] [address] [facility] ROUTEComment on above: ArrivedStart: 74-28-1368Zfmignhyn vaccinationJORDAN VALLEY [facility]ICAL [facility]ENTER HealthcareStart: 06-02-2024 End: 23-89-9034Cqtvb metabolic 2000 panel - Serum or PlasmaBasic Metabolic Panel Lab Routine Stage 4 chronic kidney disease ([facility]) Expected: 06/02/2024, Exp ires: 01/31/2025[facility] Work Phone: Comment on above:Expected: 06/02/2024, Expires: 01/31/2025Start: 06-02-2024 End: 52-96-2008BWB panel - Blood by Automated countCBC without diff Lab Routine Stage 4 chronic kidney disease ([facility]) Expected: 06/02/2024, Expires: 01/31/2025ProDecatur Morgan Hospital Health SystemComment on above:Expected: 06/02/2024, Expires: 01/31/2025Start: 06-02-2024 End: 31-32-9124Xhtsduarz [Mass/volume] in Serum or PlasmaMagnesium Lab Routine Stage 4 chronic kidney disease ([facility]) Expected: 06/02/2024, Expires: 2024ProMeditx Health SystemComment on above:Expected: 06/02/2024, Expires: 01/31/2025Start: 06-02-2024 End: 32-39-9188Tuzpcdxbwkk Hormone, intactParathyroid Hormone, intact Lab Routine Stage 4 chronic kidney disease ([facility]) Expected: 06/02/2024, Expires: 01/31/2025ProDecatur Morgan Hospital Health SystemComment on above:Expected: 06/02/2024, Expires: 01/31/2025Start: 06-02-2024 End: 63-86-3576Shhfmtvrr [Mass/volume] in Serum or PlasmaPhosphorus Lab Routine Stage 4 chronic kidney disease ([facility]) Expected: 06/02/2024, Expires: 01/31ProMedica Health SystemComment on above:Expected: 06/02/2024, Expires: 01/31/2025Start: 06-02-2024 End: 05-39-0160Ztiqgfg creat ratioProtein creat ratio Lab Routine Stage 4 chronic kidney disease ([facility]) Expected: 06/02/2024, Expires: 01/31/2025 [facility] SystemComment on above:Expected: 06/02/2024, Expires: 01/31/2025Start: 02-08-2024 End: 26-12-6169Zjyqpcl encounter pzhvpohrq55/25/2024 10:30 AM EDT Office Visit [facility] [address] [place] [address] Avery Syed MD [address] [place] [address] [address] [facility] [address] [facility]: 04-09-2545GHRWW-19 Vaccine ( season)COVID-19 Vaccine ( season)[facility] Start: 47-95-8017VvyrwhnieOhio State Harding Hospital CenterStart: 96-39-3070Lggkqdmnsl RecurringColon cancerOhio State Harding Hospital Ctr-Cancer CenterStart: 88-06-8188MdqimfsixOhio State Harding Hospital CenterStart: 48-50-0607PdcemqzvyOhio State Harding Hospital CenterStart: 83-81-6407ZH abdomen pelvis w conCT abdomen pelvis w [facility] CenterStart: 82-98-3475UC chest w conCT chest w con [facility] Hospitaltart: 24-64-0003DzfpsfnewEast Ohio Regional Hospitaltart: 00-84-8411Adkmgylxtyqo Vaccine: 65+ Years (2 of 2 - PPSV23 or PCV20)Pneumococcal Vaccine: 65+ Years (2 of 2 - PPSV23 or PCV20)[facility] Healthcare Start: 42-82-2286Ydcrdgwucaub Vaccine: 65+ Years (2 of 2 - PPSV23)Pneumococcal Vaccine: 65+ Years (2 of 2 - PPSV23)[facility] HealthcareStart: 55-52-0280Oudp Risk ScreeningFall Risk ScreeningProCleveland Clinic Children'S Hospital For Rehabilitation SystemStart: 1992 Administration of varicella zoster vaccineZoster (Shingles) Vaccine (1 of 2) [facility] SystemStart: 10-28-5766EVnC,Tdap and Td Vaccines (1 - Tdap) DTaP,Tdap and Td Vaccines (1 - Tdap)[facility] SystemStart: 1954 Depression ScreeningDepression ScreeningLakeHealth TriPoint Medical Center SystemStart: 1954 Tobacco ScreeningTobacco ScreeningProCleveland Clinic Children'S Hospital For Rehabilitation SystemStart: 1942 Medicare Annual Wellness VisitMedicare Annual Wellness VisitThe Bellevue HospitalCarcinoembryonic Ag [Mass/volume] in Serum or [facility] Work Phone: Carcinoembryonic Ag [Mass/volume] in Serum or Plasma [facility] HospitalCarcinoembryonic Ag [Mass/volume] in Serum or [facility] HospitalComprehensive metabolic 1999 panel - Serum or [facility] Work Phone: Comprehensive metabolic 1999 panel - Serum or Plasma [facility] HospitalComprehensive metabolic 1999 panel - Serum or [facility] HospitalComprehensive metabolic 1999 panel - Serum or [facility] HospitalComprehensive metabolic 1999 panel - Serum or [facility] HospitalComprehensive metabolic 1999 panel - Serum or [facility] HospitalComprehensive metabolic 1999 panel - Serum or PlasmaComprehensive metabolic panel Lab STAT 02/24/2025 9:46 AM [facility] Work Phone: Comprehensive metabolic 1999 panel - Serum or Plasma [facility] HospitalComprehensive metabolic 1999 panel - Serum or PlasmaComprehensive metabolic panel Lab Routine 05/30/2025 10:59 AM [facility] Work Phone: Comprehenwilson medical center metabolic 1999 panel - Serum or Plasma [facility] HospitalCT Abdomen and Pelvis W contrast [facility] Work Phone: CT Abdomen and Pelvis W contrast [facility] and [facility] and Pelvis W contrast [facility] Ab[facility]en and Pelvis W contrast [facility] Abdomen and Pelvis WO [facility] Work Phone: CT Abdomen and Pelvis WO [facility] and Pelvis WO [facility] CT Chest W contrast [facility] Work Phone: CT Chest W contrast [facility] W contrast [facility] Chest W contrast [facility] W contrast [facility] WO [facility] Work Phone: CT Chest WO [facility] CT Chest WO [facility] HospitalErythropoietin (EPO) [Units/volume] in Serum or [facility] HospitalErythropoietin (EPO) [Units/volume] in Serum or [facility] Erythropoietin (EPO) [Units/volume] in Serum or [facility] HospitalFerritin [Mass/volume] in Serum or [facility] HospitalIron and Iron binding capacity panel - Serum or PlasmaIron and TIBC Lab STAT 02/24/2025 9:46 AM [facility] and Iron binding capacity panel - Serum or PlasmaIron and TIBC Lab Routine 05/30/2025 10:59 AM [facility] Patient [facility] Work Phone: Patient [facility] Work Phone: Renal function 1999 panel - Serum or [facility] HospitalRenal function 1999 panel - Serum or [facility] HospitalRenal function 1999 panel - Serum or [facility] End: 07-39-3554AusqcjlbvhXcwfcupbgn Lab Routine Stage 4 chronic kidney disease ([facility]) 1 Occurrences starting 02/08/2024 until 01/31/2025ProMedica Health SystemComment on above:1 Occurrences starting 02/08/2024 until 01/31/2025 End: 97-24-7202CvihaxdalqMapoirxhin Lab Routine Stage 4 chronic kidney disease ([facility]) 1 Occurrences starting 08/08/2024 until 08/08/2025ProDecatur Morgan Hospital Health SystemComment on above:1 Occurrences starting 08/08/2024 until 08/08/[address] [facility] Immunizations Immunization DateImmunizationNotesCare MjbqseluWfjlcjmo31-71-9947pdvylnwgj, high dose seasonal, preservative-freeBenjamin Ball DO Work Phone: [facility]10-07-2024COVID-19 (PFIZER) 12Y and olderBenjamin Ball DO Work Phone: [facility]09-30-2024influenza, high dose seasonal, preservative-freeBenjamin Ball DO Work Phone: [facility]09-30-2024influenza virus vaccine, unspecified formulationShorePoint Health [facility]-A Work Phone: [facility] HospitalKbbeqzceeh12-30-4623BIVLX-73 (PFIZER) 12Y and olderBenjamin Ball DO Work Phone: [facility]09-26-2023Influenza vaccine, quadrivalent, adjuvantedBenjamin Ball DO Work Phone: [facility]09-26-2023influenza virus vaccine, unspecified formulationLaquise [facility] 50-95-5905IHNGD-19 Pfizer (bivalent)Yas Linda Other [facility]09-25-2022COVID-19 Pfizer (Pediatric)Yas Linda Other [facility]09-19-2022Influenza vaccine, quadrivalent, adjuvantedBenjamin Ball DO Work Phone: [facility]09-19-2022influenza virus vaccine, split virus (incl. purified surface antigen)Yas Linda Other [employer] Other [id number] virus vaccine, unspecified formulationDO Yas Linda Work Phone: [facility]09-19-2022influenza, high dose seasonal, preservative-freeBenjamin Maddi Other [employer] Other [id number]-59 PfizerBenjamin Maddi Other [facility]04-25-2022COVID-19 Vaccine Pfizer - Documentation Purposes OnlyBenjamin Maddi Other [facility]10-13-2021influenza virus vaccine, split virus (incl. purified surface antigen)Yas Linda Other [employer] Other [id number] virus vaccine, unspecified formulationDO Yas Linda Work Phone: [facility]10-13-2021Seasonal trivalent influenza vaccine, adjuvanted, preservative freeBenjamin Ball DO Work Phone: [phone] [place], [place] [address]2009-30-2021COVID-19 mRNA, Comirnaty (Pfizer)DO Yas Linda Work Phone: [phone]02-18-2021COVID-19 mRNA, Comirnaty (Pfizer)DO Yas Linda Work Phone: [phone] [place], [place] [address]2001-28-2021COVID-19 mRNA, Comirnaty (Pfizer)DO Yas Linda Work Phone: [phone] [place], [place] [address]2009-15-2020influenza virus vaccine, split virus (incl. purified surface antigen)Yas Linda Other [employer] Other [id number] virus vaccine, unspecified formulationDO Yas Linda Work Phone: [phone]10-04-2019influenza virus vaccine, split virus (incl. purified surface antigen)Yas Linda Other [employer] Other 404439-45-1597wequckvoe virus vaccine, unspecified formulationDO Yas Linda Work Phone: [phone]10-01-2019influenza virus vaccine, unspecified formulationBenjamin Maddi DO Work Phone: [phone]10-02-2018influenza virus vaccine, split virus (incl. purified surface antigen)Yas Linda Other [employer] Other [phone] virus vaccine, unspecified formulationDO Yas Linda Work Phone: [phone] [place], [place] 1752010-02-2018Seasonal trivalent influenza vaccine, adjuvanted, preservative freeBenjamin Maddi DO Work Phone: [phone] [place], [place] 1752003-12-2018diphtheria, tetanus toxoids and acellular pertussis vaccine, unspecified formulation Yas Linda Other [facility]10-09-2017influenza virus vaccine, split virus (incl. purified surface antigen)Yas Linda Other [employer] Other 091882-31-8741wtlxtgguw virus vaccine, unspecified formulationDO Yas Linda Work Phone: [facility]10-09-2017Seasonal trivalent influenza vaccine, adjuvanted, preservative freeBenjamin Maddi DO Work Phone: [facility]09-27-2016influenza virus vaccine, split virus (incl. purified surface antigen)Yas Linda Other [facility] Other [id number] virus vaccine, unspecified formulationDO Yas Linda Work Phone: [facility]09-27-2016influenza, high dose seasonal, preservative-freeBenjamin AdReady DO Work Phone: [facility]08-11-2016 pneumococcal Conjugate, unspecified formulation; Translations: [Need for prophylactic vaccination against Streptococcus pneumoniae (pneumococcus)] Yas Linda Other [facility] [employer] Other [id number] conjugate vaccine, 13 valent Ysa Linda Other [facility]09-23-2015influenza virus vaccine, split virus (incl. purified surface antigen)Yas Linda Other [employer] Other [id number] virus vaccine, unspecified formulationDO Yas Linda Work Phone: [facility]10-18-2013tetanus and diphtheria toxoids, adsorbed, preservative free, for adult use (5 Lf of tetanus toxoid and 2 Lf of diphtheria toxoid)Yas Linda Other [facility]10-18-2013 pneumococcal polysaccharide vaccine, 23 valentBenalbert Linda Other [facility]10-01-2013 pneumococcal conjugate vaccine, 13 valentNicole Pancho DO Work Phone: [facility] HospitalUztyjzkoqc17-96-4653aeyzifl and diphtheria toxoids, adsorbed, preservative free, for adult use (5 Lf of tetanus toxoid and 2 Lf of diphtheria toxoid)Yas Linda Other [facility]12-14-2009novel bcuuihkrf-G8D3-93, preservative-free, injectableBenjagrady Linda DO Work Phone: [facility] Payers DatePayer CategoryPayerPolicy [id number] [facility] [id number] 2022- Present [address] [place] [address] [id number] Care Other (unspecified)[facility] Member Subscriber Plan / Payer (Effective 2021-Present) Name: Chriss Oliver ID: [id number] Relation to Subscriber: Self Name: Delano Oliver Payer ID: [id number] (NAIC) Group ID: [id number] N Type: Not on file Address: [address] [place] [id number] 34-48-4464Yhottjb Health Insurance [id number] 2007Medicare [id number] [id number] 47-29-3142Gqjp-[id number] [id number] 2.16.840.1.002163.3.579.2.07935-85-6811 [id number] 2.16.840.1.186385.3.579.[id number] 2.16.840.1.023500.3.579.2.56909-97-2380Zgscpqg2015032 2.16.840.1.920956.3.579.2.85580-53-1251Fgqrbwq9390012 2.16.840.1.618478.3.579.[id number] 2.16.840.1.369681.3.57[id number] 2.16.840.1.310788.3.579.[id number] 2.16.840.1.332046.3.579.[id number] 2.16.840.1.466571.3.57[id number] 2.16.840.1.823289.3.57[id number] 2.16.840.1.966787.3.579.[id number] 2.16.840.1.956618.3.579.[id number] 2.16.840.1.682338.3.579.[id number] 2.16.840.1.334103.3.57[id number] 2.16.840.1.377450.3.579.[id number] 2.16.840.1.229940.3.579.2.95260-41-4446Zvsipxt7531754 2.16.840.1.774887.3.579.[id number] 2.16.840.1.185793.3.579.2.19954-12-0546Tkojrwq0115626 2.16.840.1.968886.3.579.2.52632-48-9912Dwwqref1168624 2.16.840.1.674265.3.579.2.49039-89-0847Gbhccpc4484653 2.16840.1.214612.3.579.2.30837-41-2616Evbucxf3731364 2.16.840.1.764064.3.57[id number] 2.16.840.1.448325.3.579.2.380949-02-7856Qvukmdp35848557 2.16.840.1.703948.3.579.2.653832-44-0381Lrkejqm35956139 2.16.840.1.122928.3.579.2.889088-16-5638Ddiidsi60547099 2.16.840.1.132024.3.579.2.969945-63-5025Yyuppzz71938475 2.16.840.1.761287.3.579.2.160329-66-2238Odgyuqm99265764 2.16.840.1.573034.3.57[id number] 2.16840.1.539433.3.579.2.638276-53-4061Nwsguhe78279961 2.840.1.186881.3.579.2.718821-60-5166Ccfilmx51001501 2.840.1.094180.3.579.2.924278-86-6185Dcqcsho92397012 2.840.1.249521.3.57[id number] 2.840.1.325998.3.579.2.845061-25-4801Fletbsc97483446 2.84.1.657758.3.579.2.409286-32-9117Hjdxxxk71353855 2.840.1.033560.3.57[id number] 2.840.1.712967.3.57[id number] 2.840.1.436328.3.57[id number] 2.84.1.250571.3.57[id number] 2.840.1.734092.3.57[id number] 2.840.1.568873.3.579.[id number] 2.840.1.018598.3.57[id number] 2.840.1.404457.3.579.[id number] 2.16.840.1.485427.3.57[id number] 2.16.840.1.940428.3.57[id number] 2.16.840.1.700273.3.579.[id number] 2.16840.1.418821.3.579.[id number] 2.840.1.631727.3.579.[id number] 2.16840.1.783607.3.579.[id number] 2.840.1.556279.3.57[id number] 2.840.1.670104.3.579.2.[id number] 2.840.1.240552.3.57[id number] 2.840.1.535555.3.579.2.[id number] 2.840.1.585267.3.579.[id number] 2.840.1.793957.3.579.2.013419-74-8531Cyvoomk6312426 2.16840.1.027413.3.57[id number] 2.16.840.1.628283.3.57[id number] 2.16840.1.41[id number] 2.16.840.1.078282.3.579.2.593 [id number] 2.16.840.1.799766.3.579.2.531 Social History DateTypeDetailFacilityStart: 06-03-2022 End: 71-77-5414Binkwmk smoking status NHISEx-smoker (finding)[facility]tart: 49-76-3215Thk [facility]: 07-[facility]2024 End: 82-33-5670Jdv Assigned At [facility] Other History of tobacco useCurrent smokerLakeHealth [facility] SystemHistory of tobacco useCigarette SmokerNOKS HealthcareStart: 06-01-2023 End: 76-44-9983Krzjmtk use and exposureSmokeless tobacco non-userLakeHealth TriPoint Medical Center SystemStart: 07-09-2024 End: 95-71-7723Qnyrhbfki beverage intakeCurrent drinker of alcohol (finding)[facility] HealthcareStart: 07-08-2024 End: 73-64-2852Cxtiakw of Social functionProCleveland Clinic [facility] SystemFrequency of Alcohol ConsumptionNot on [facility] SystemHow many standard drinks containing alcohol do you have on a typical day?1 or 2NOMS HealthcareHow often do you have 6 or more drinks on 1 occasion?NeverNOMS HealthcareStart: 07-08-2024 Alcohol Commentcaffeine: noneNOMS HealthcareStart: 26-25-6076Cst assigned at birthNot on [facility] SystemStart: 34-36-9046Plsoio identity Identifies as male gender (finding)[facility] HealthcareStart: 10-05-2023 End: 46-84-4786Qcoirvbtl beverage intakeEx-drinker (finding)[facility] SystemStart: 05-21-2015 End: 70-45-5105MilSyob (finding)[facility] SystemStart: 96-08-6121Hfwfqzl smoking status NHISNever smoked tobacco (finding)[facility] Hospitaltart: 12-27-2024 End: 66-05-0609WKCK Follow upSDOH Follow upGe[facility] Work Phone: Medical Equipment Procedure CodeEquipment CodeEquipment Original TextEquipment IdentifierDates Arthroplasty, hip, bipolar()[id number] FDAStart: 70-92-3634Xfykcavmpwcd, hip, bipolar()[id number] FDA Start: 28-34-8932Bsepx Sugar Diagnostic (Contour Next Test Strips) stripStart: 75-51-3124Ggeqo Sugar Diagnostic (Contour Next Test Strips) stripStart: 93-49-8530Kiqfr Sugar Diagnostic (Contour Next Test Strips) stripStart: 21-45-8021Wyeuy Sugar Diagnostic (Contour Next Test Strips) stripStart: 45-57-6350Eynjl Sugar Diagnostic (Contour Next Test Strips) stripStart: 66-07-9442Inedv Sugar Diagnostic (Contour Next Test Strips) stripStart: 83-23-9892Aljix Sugar Diagnostic (Contour Next Test Strips) stripStart: 95-17-2870Ntioe Sugar Diagnostic (Contour Next Test Strips) stripStart: 59-05-3071Qnqhi Sugar Diagnostic (Contour Next Test Strips) stripStart: 23-04-6623Tulxp Sugar Diagnostic (Contour Next Test Strips) stripStart: 12-15-2023 Goals DatePatient GoalDesired Activity/State Functional Status WqgcKtkxprusofSabxklJiigkuiq73-54-9759Fgoxcerfus statusPatient at [facility] Work Phone: 1(561) 406-617903398231-02-2909Xibwnkqsvd statusPatient at [facility] Work Phone: Mental Status KbuiSgqgqprteyOlvtzkPvesranp60-63-5770Wagprkspk functionPatient at [facility] Work Phone: 1(268) 522-870503724628-02-9231Wvkzbhuzl functionPatient at [facility] Work Phone: Clinical Notes 08-31-2021 to 05-27-2025 Note Date & DghmZfhcHfrwdbsa71-97-[address] [facility]08-[facility]2025 NoteUT Electrophysiology Consult Note Reason for visit: Afib and dilated CMP. 05/27/25 Patient is here today to discuss possible ablation or watchman. Patient states he is doing well. He has fatigue. He appears to keep SR based on last device check. Not on AAD as Amio was stopped by Dr OVALLE due to thyroid issue. 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 Subsequent echocardiogram in [...] symptoms. EKG: V pacing. Prior HPI: Delano Oliver is a 85 y.o. year old with [...] infrahisian disease. He was brought back to History Professor on 02/12/2020 due to what was discussed [...] syncope, weakness and light-headedness. (more content not included)...[facility]08-11-2025 History of Present illness Narrative* Emely Ramon, DPM - 05/26/2025 10:15 AM EDT Images from the original note were not included. Subjective Patient ID: Delano Oliver is a 85 y.o. male who presents for DM Foot Care (Pt is here today requesting nail care/BS: 117 A1C: ?/LV Dr. Linda 05-05-2025/SS: ). HPI Established patient returns to clinic [...] crush, chew, or split., Disp: , Rfl: Yeiuukvnjwy-Qdslxfvvq-Ekzucz (Trelegy Ellipta) 200-62.5-25 MCG/ACT aerosol powder , Inhale, Disp: ,Rfl: furosemide (Lasix) 80 MG tablet, , Disp: [...] Do not crush orchew., Disp: , Rfl: niacin 500 MG tablet, [...] utilizing a nail nipper and electric bur level vial inside grinder without incident. I have discussed the [...] corrected. Thank you for your understanding. Emely Ramon DPM documented in this [facility]07-15-2025 Evaluation note* Diagnosis Onset Date Resolution Status Admit Date Femoral neck fracture inactiveJuly 2024 9:55amStatus post hemiarthroplasty of right hipinactive April 29, 2025 9:55amTrochanteric bursitis, left hipdeletedJuly 2024 9:55amAcute blood loss anemiaacuteAugust 2024 12:41pmColon canceracute Scotts 2024 12:41pmSecondary hyperparathyroidismacuteAugust 2024 12:41pmColon cancerdeletedAugust 2024 12:43pmHyposomniaacuteSeptember 2024 10:20amHypoxiaacuteSeptember 2024 10:20amObstructive sleep apneaacuteSeptember 2024 10:20amPrimary insomniaacuteSeptember 2024 10:20amSnoringacuteSeptember 2024 10:20amAtrial fibrillationacuteSeptember 2024 9:17amChronic bronchitis, simpleacuteSeptember 2024 9:17am Chronic HFrEF (heart failure with reduced ejection fraction)acuteSeptember 2024 9:17amChronic kidney diseaseacuteSeptember 2024 9:17amColon cancer acuteSeptember 2024 9:17amHypercholesteremiaacuteSeptember 2024 9:17amHypothyroidism due to medicationacuteSeptember 2024 9:17am Nonischemic dilated cardiomyopathyacuteSeptember 2024 9:17amObstructive sleep apneaacuteSeptember 2024 9:17amType 2 diabetes mellitus with hyperglycemiaacuteSeptember 2024 9:17amAtrial fibrillationacuteOctober 2024 3:46pmBruising at injection siteacuteOctober 2024 3:46pmChronic HFrEF (heart failure with reduced ejection fraction)acuteOctober 2024 3:46pmNonischemic dilated cardiomyopathyacuteOctober 2024 3:46pm [facility] Work Phone: 1(591) 494-871607-11-2025 NoteProvider called patient and d/w his regarding possible fluid retention/overload no remote device interrogation. State that he just had appointment with Dr Ortiz last week and overall is feeling fine without s/s of fluid overload. D/W them to call office for any concerns or questions- they voiced understanding. Fermin Bull [facility] Cardiology Available 7a-3pm via [email or web address] [phone] [facility]07-03-20[facility] Evaluation note* Diagnosis Onset Date Resolution Status Admit Date Anemia of renal disease acuteJuly 2024 3:08pmChronic HFrEF (heart failure with reduced ejection fraction)acuteJuly 2024 3:08pmHypercholesteremiaacuteJuly 2024 3:08pm Secondary hyperparathyroidismacuteJuly 2024 3:08pmType 2 diabetes mellitus with diabetic chronic kidney diseaseacuteJuly 2024 3:08pmHypertensive chronic kidney disease with stage 1 through stage 4 chronic kideletedJuly 2024 3:08pmStage 4 chronic kidney diseasedeletedJuly 2024 3:08pmFemoral neck fractureinactiveJuly 2024 9:55amStatus post hemiarthroplasty of right hipinactiveJuly 2024 9:55amTrochanteric bursitis, left hipdeletedJuly 2024 9:55amAcute blood loss anemiaacuteAugust 2024 12:41pmColon canceracuteAugust 2024 12:41pmSecondary hyperparathyroidismacuteAugust 2024 12:41pmColon cancerdeletedAugust 2024 12:43pm [facility] Work Phone: 1(901) 131-707807-03-2025 Evaluation note* Diagnosis Onset Date Resolution Status Admit Date Anemia of renal disease acuteJuly 2024 3:08pmChronic HFrEF (heart failure with reduced ejection fraction)acuteJuly 2024 3:08pmHypercholesteremiaacuteJuly 2024 3:08pm Secondary hyperparathyroidismacuteJuly 2024 3:08pmType 2 diabetes mellitus with diabetic chronic kidney diseaseacuteJuly 2024 3:08pmHypertensive chronic kidney disease with stage 1 through stage 4 chronic kideletedJuly 2024 3:08pmStage 4 chronic kidney diseasedeletedJuly 2024 3:08pmFemoral neck fractureinactiveJuly 2024 9:55amStatus post hemiarthroplasty of right hipinactiveJuly 2024 9:55amTrochanteric bursitis, left hipdeletedJuly 2024 9:55amAcute blood loss anemiaacuteAugust 2024 12:41pmColon canceracuteAugust 2024 12:41pmSecondary hyperparathyroidismacuteAugust 2024 12:41pmColon cancerdeletedAugust 2024 12:43pmHyposomniaacute July 07, 2025 10:20amHypoxiaacuteSeptember 2024 10:20amObstructive sleep apneaacuteSeptember 2024 10:20amPrimary insomniaacuteSeptember 2024 10:20amSnoringacuteSeptember 2024 10:20amAcute blood loss anemiaacute July 08, 2025 9:17amChronic bronchitis, simpleacuteSeptember 2024 9:17amChronic HFrEF (heart failure with reduced ejection fraction)acuteSeptember 2024 9:17amChronic kidney diseaseacuteSeptember 2024 9:17amColon canceracuteSeptember 2024 9:17amHypercholesteremiaacuteSeptember 2024 9:17amHypothyroidism due to medicationacuteSeptember 2024 9:17am Nonischemic dilated cardiomyopathyacuteSeptember 2024 9:17am [facility] Work Phone: 1(109) 225-757807-01-2025 History of Present illness Narrative* Kenny Cristal Katya, PT - 04/15/2025 8:30 AM EDT Images from the original note were not included. Physical Therapy Treatment Visit Patient Name: Delano Oliver Today's Date: 04/15/2025 Encounter Diagnoses Name Primary? Greater trochanteric bursitis of left hip Yes History of total hip arthroplasty, right Left hip pain Visit number: 13 Timed Code Treatment: 53 minutes Total Treatment Time: 61 minutes Time In: 830 Time Out: 09 History: Pt. Presents to PT PO right [...] to be instructed in home exercise program. Motion Study Analyst Goals: To be met in 10 weeks [...] Please sign below. Date: documented in this encounterFulton State [id number] NoteUT Cardiology - [facility] Subjective Delano Oliver is a 84 y.o. year old male [...] Pitting Edema present. Comm (more content not included)...[facility]06-16-2025 History of Present illness Narrative* Kenny Aldana, PT - 03/31/2025 1:00 PM EDT Images from the original note were not included. Physical Therapy Treatment Visit Patient Name: Delano Oliver Today's Date: 03/31/2025 Encounter Diagnoses Name Primary? [...] to be instructed in home exercise program. Motion Study Analyst Goals: To be met in 10 weeks [...] Please sign below. Date: documented in this encounterFulton State [id number] Evaluation note* Diagnosis Onset Date Resolution Status Admit Date Skin tear of left forearm without compli cation deletedJune 2024 1:04pmCellulitis of arm, leftnoneactiveJune 2024 1:04pmAcute blood loss anemiaacuteJune 2024 8:51amChronic bronchitis, simpleacuteJune 2024 8:51amChronic HFrEF (heart failure with reduced ejection fraction)acuteJune 2024 8:51amChronic kidney diseaseacuteJune 2024 8:51amColon canceracuteJune 2024 8:51amHistory of thyrotoxicosisacuteJune 2024 8:51amHypercholesteremiaacuteJune 2024 8:51amHypothyroidism due to medicationacuteJune 2024 8:51amNonischemic dilated cardiomyopathyacuteJune 2024 8:51amAnemia of renal diseaseacute April 17, 2025 3:08pmChronic HFrEF (heart failure with reduced ejection fraction)acuteJuly 2024 3:08pmHypercholesteremiaacuteJuly 2024 3:08pm Secondary hyperparathyroidismacuteJuly 2024 3:08pmType 2 diabetes mellitus with diabetic chronic kidney diseaseacuteJuly 2024 3:08pmHypertensive chronic kidney disease with stage 1 through stage 4 chronic kideletedJuly 2024 3:08pmStage 4 chronic kidney diseasedeletedJuly 2024 3:08pmFemoral neck fractureinactiveJuly 2024 9:55amStatus post hemiarthroplasty of right hipinactiveJuly 2024 9:55amTrochanteric bursitis, left hipdeletedJuly 2024 9:55amAcute blood loss anemiaacuteAugust 2024 12:41pmColon canceracuteAugust 2024 12:41pmSecondary hyperparathyroidismacuteAugust 2024 12:41pmColon cancerdeletedAugust 2024 12:43pm [facility] Work Phone: 1(410) 219-106406-04-2025 History of Present illness Narrative* Kenny Aldana, PT - 03/19/2025 3:00 PM EDT Images from the original note were not included. Physical Therapy Evaluation Visit Patient Name: Delano Oliver Today's Date: 03/19/25 Encounter Diagnoses Name Primary? [...] to be instructed in home exercise program. Jail Goals: To be met in 10 weeks [...] Please sign below. Date: documented in this encounterFulton State [id number] Evaluation note* Diagnosis Onset Date Resolution Status Admit Date Femoral neck fracture inactiveMa2024 11:18amStatus post hemiarthroplasty of right hipinactive February 25, 2025 11:18amTrochanteric bursitis, left hipdeletedMa2024 11:18amColon cancerdeletedMa2024 1:52pmSkin tear of left forearm without complicationdeletedJun2024 1:04pmCellulitis of arm, leftnoneactiveJun2024 1:04pmAcute blood loss anemiaacuteJune 2024 8:51amChronic bronchitis, simpleacuteJune 2024 8:51amChronic HFrEF (heart failure with reduced ejection fraction)acuteJune 2024 8:51amChronic kidney diseaseacute April 07, 2025 8:51amColon canceracuteJune 2024 8:51amHistory of thyrotoxicosisacuteJune 2024 8:51amHypercholesteremiaacuteJune 2024 8:51amHypothyroidism due to medicationacuteJune 2024 8:51amNonischemic dilated cardiomyopathyacuteJune 2024 8:51amAnemia of renal diseaseacute April 17, 2025 3:08pmChronic HFrEF (heart failure with reduced ejection fraction)acuteJuly 2024 3:08pmHypercholesteremiaacuteJuly 2024 3:08pm Secondary hyperparathyroidismacuteJuly 2024 3:08pmType 2 diabetes mellitus with diabetic chronic kidney diseaseacuteJuly 2024 3:08pmHypertensive chronic kidney disease with stage 1 through stage 4 chronic kideletedJuly 2024 3:08pmStage 4 chronic kidney diseasedeletedJuly 2024 3:08pmFemoral neck fractureinactiveJuly 2024 9:55amStatus post hemiarthroplasty of right hipinactiveJuly 2024 9:55amTrochanteric bursitis, left hipdeletedJuly 2024 9:55am [facility] Work Phone: 1(781) 609-688905-09-2025 History of Present illness Narrative* Emely Ramon DPM - 02/21/2025 10:45 AM EDT Images from the original note were not included. Subjective Patient ID: Delano Oliver is a 84 y.o. male who presents for DM Foot Care (Delano Oliver 84yo New Patient present for diabetic nail [...] History Past Medical History: Diagnosis Date A-fib (CMS/HCC) Chronic kidney disease, stage 4 (severe) (CMS/HCC) Colon cancer ([facility]/HCC) 08/2021 COPD (chronic obstructive pulmonary disease) (CMS/HCC) Diabetes mellitus type II, controlled (CMS/HCC) Gout HTN (hypertension) (CMS/HCC) Hypercholesteremia (CMS/HCC) Hypothyroid [...] mg by mouth Daily, Disp: , Rfl: Jgbhlyipixv-Athiagnju-Wegctz (Trelegy Ellipta) 200-62.5-25 MCG/ACT aerosol powder , [...] utilizing a nail nipper and electric bur level vial inside grinder without incident. I have discussed the [...] corrected. Thank you for your understanding. Emely Ramon DPM documented in this encounterFulton State [id number] NotePatients called with his blood pressures over the last 2 weeks Patient is currently holding Hydralazine, Amlodipine and Isosorbide. 143/82 135/67 130/73 121/70 119/61 141/67 148/85 131/69 149/79 112/79 134/75 130/78 133/77 130/69 140/68 147/77 Please adviseUniversity [facility] Hospitals [facility]2025 NotePatients has been informed - New script sent out for Hydralazine 10 mg BID. will call with updated BP's in 2 weeksUnMount [facility] 01-28-2025 NotePatient is here for a 3 [...] isosorbide have been put hold by the clinic scheduler due to low blood pressure. Patient still has samples of Eliquis and will be starting Xarelto. Review of Systems All other systems reviewed and are negative.[facility] 01-28-2025 NoteCardiovascular Medicine [facility] SUBJECTIVE Chief Complaint Patient presents with Atrial Fibrillation Congestive Heart Failure Hypertension Delano Oliver is a 84 y.o. male here for [...] isosorbide have been put hold by the clinic scheduler due to low blood pressure. Patient still [...] List Diagnosis Stage 3 chronic kidney disease ([facility]/HCC) Bacteremia Chronic systolic heart failure ([facility]/HCC) Dyslipidemia Edema of lower extremity Hyperlipidemia Hypertensive disorder Left ventricular systolic dysfunction Osteomyelitis of vertebra ([facility]) Paroxysmal atrial flutter ([facility]) Proteinuria Type 2 diabetes mellitus ([facility]) COPD (chronic obstructive pulmonary disease) ([facility]) Dilated cardiomyopathy ([facility]) Statin intolerance Stage 4 chronic kidney disease ([facility]/HCC) Chronic bronchitis, simple ([facility]/HCC) Chronic venous insufficiency Constipation Hyperlipidemia type II Hypothyroidism due to medication Impaired mobility and activities of daily living Iron deficiency anemia Colon cancer ([facility]/HCC) Mucopurulent chronic bronchitis ([facility]/HCC) Obstructive sleep apnea Pacemaker A-fib ([facility]) Psoas abscess, right ([facility]) Pulmonary hypertension ([facility]/HCC) Thyrotoxicosis Type 2 diabetes mellitus with hyperglycemia ([facility]) Hypersomnia Primary insomnia Past Medical History: Diagnosis Date Arrhythmia CHF (congestive heart failure) ([facility]/HCC) Chronic kidney disease Family History Problem Relation Name Age of Onset Diabetes Mother Heart disease Father Glaucoma Brother Diabetes Maternal Grandmother Clotting disorder Other Social History Tobacco Use Smoking status: Former Current packs/day: 0.00 Types: Cigarettes Quit date: 1981 Years since quittin.3 Smokeless tobacco: Never Substance Use Topics Alcohol use: Yes Comment: OCCASIONAL Drug use: Never Allergies Allergen Reactions Bbxahnd-Asv-Edj Reductase Inhibitors Tramadol ROS Cardiovascular: Positive for [...] crush, chew, or split., (more content not included)...[facility]04-14-2025 Miscellaneous Notes* Telephone Encounter - Connie Dunham CMA - 01/27/2025 9:05 AM EDTSummary: New Permaculture Contractor Recently found a new clinic scheduler documented in this encounterAkron Children's HospitalAllergEase [id number] Telephone encounter Note* Telephone Encounter - Connie Dunham CMA - 01/27/2025 9:05 AM EDTSummary: New Permaculture Contractor Recently found a new clinic scheduler [facility]04-07-2025 Evaluation note* Diagnosis Onset Date Resolution Status Admit Date Anemia of renal disease acuteApril 2024 10:53amChronic HFrEF (heart failure with reduced ejection fraction)acuteApril 2024 10:53amSecondary hyperparathyroidismacuteApril 2024 10:53amType 2 diabetes mellitus with diabetic chronic kidney disease acuteApril 2024 10:53amHyperlipidemia type IIdeletedApril 2024 10:53am Hypertensive chronic kidney disease with stage 1 through stage 4 chronic ki deletedApril 2024 10:53amStage 4 chronic kidney diseasedeletedApril 2024 10:53amAcute blood loss anemiaacuteApril 2024 1:59pmChronic bronchitis, simpleacuteApril 2024 1:59pmChronic HFrEF (heart failure with reduced ejection fraction)acuteApril 2024 1:59pmChronic kidney disease acuteApril 2024 1:59pmHypothyroidism due to medicationacuteApril 2024 1:59pmNonischemic dilated cardiomyopathyacuteApril 2024 1:59pmFemoral neck fractureinactiveApril 2024 1:59pmHypotension after proceduredeleted January 28, 2025 1:59pmFemoral neck fractureinactiveMay 2024 11:18amStatus post hemiarthroplasty of right hipinactiveMay 2024 11:18amTrochanteric bursitis, left hipdeletedMay 2024 11:18amColon cancerdeletedMay 2024 1:52pmSkin tear of left forearm without complicationdeletedJun2024 1:04pmCellulitis of arm, leftnoneactiveJune 2024 1:04pmAcute blood loss anemiaacuteJune 2024 8:51amChronic bronchitis, simpleacuteJune 2024 8:51amChronic HFrEF (heart failure with reduced ejection fraction)acuteJune 2024 8:51amChronic kidney diseaseacuteJune 2024 8:51amColon cancer acuteJune 2024 8:51amHistory of thyrotoxicosisacuteJune 2024 8:51am HypercholesteremiaacuteJune 2024 8:51amHypothyroidism due to medication acuteJune 2024 8:51amNonischemic dilated cardiomyopathyacuteJune 2024 8:51amAnemia of renal diseaseacuteJuly 2024 3:08pmChronic HFrEF (heart failure with reduced ejection fraction)acuteJuly 2024 3:08pmSecondary hyperparathyroidismacuteJuly 2024 3:08pmType 2 diabetes mellitus with diabetic chronic kidney diseaseacuteJuly 2024 3:08pm [facility] Work Phone: 1(406) 933-980303-26-2025 Progress note Author Kaitlynn Del CidSelect Medical OhioHealth Rehabilitation HospitalNote Date/TimeMarch 2024 3:05pm[place] [address] Nephrology Progress Note Signed Patient: Delano Oliver MR#: [id number] : 1940 Acct:[id number] Age/Sex: 84 / M Adm Date: 5 Loc: Room: [address] [place] [address] Type: ADM IN Attending Dr: Sotero Black MD Copies to: ~ Date of Service: 01/08/2025 Subjective Subjective Narrative: This is a 84 male with medical history of CKD IV, HTN, A-fib, HFrEF, DM, gout and HLD was initiallyadmitted after mechanical fall for right hip fracture. [...] hydralazine and decrease metoprolol to25 mg daily. Patientalso remain off amlodipine Lasix Renal function started [...] 01/08/25 11:31 01/08/25 11:31 01/08/25 11:31 01/08/25 11:01/08/25 11:12/30/24 05:00 Narrative: General: No acute [...] 100 Mg Tablet) 100 mg PO BID [facility] Stop: 12/30/25 20:59 Last Admin: 01/08/25 09:13 Dose: 100 mg Amiodarone HCl (Amiodarone 200 Mg Tablet) 200 mg PO DAILY [facility] Stop: 12/28/25 08:59 Last Admin: 01/08/25 09:13 Dose: 200 mg Apixaban (Apixaban 2.5 Mg Tablet) 2.5 mg PO BID [facility] Stop: 12/28/25 08:59 Last Admin: 01/08/25 09:12 Dose: 2.5 mg Ascorbic Acid (Ascorbic Acid 500 Mg Tablet) 500 mg PO DAILY [facility] Stop: 12/28/25 08:59 Last Admin: 01/08/25 09:13 Dose: 500 mg Balsam Qian/[place] Oil (Balsam Qian/[place] Oil Oint 60 Gm Tube) 1 applic TOPICAL BID PRN PRN Reason: tape caraballo Stop: 01/01/26 12:33 Last Admin: 01/04/25 21:05 Dose: 1 applic Bisacodyl (Bisacodyl 10 Mg Supp.Rect) 10 mg CA DAILY PRN PRN Reason: Constipation Stop: 12/27/25 14:22 Budesonide/Formoterol Fumarate (Budesonide/Formoterol 160-4.5 Mcg 120 Puff/10.2 Gm Hfa.Aer.Ad) 2 puff INHALATION BID [facility] Stop: 12/28/25 08:59 Last Admin: 01/08/25 06:07 Dose: Not Given Calcium Carbonate (Calcium Carbonate/Vitamin D3 500 Mg/200 Unit Tablet) 1 tab PO TID.WITH.MEALS [facility] Stop: 12/27/25 16:59 Last Admin: 01/08/25 12:30 [...] Enema 283 Mg/5 Ml Enema) 283 mg CA DAILY PRN PRN Reason: Constipation Stop: 12/27/25 14:22 Ezetimibe (Ezetimibe 10 Mg Tablet) 10 mg PO DAILY [facility] Stop: 12/28/25 08:59 Last Admin: 01/08/25 09:13 Dose: 10 mg Ferrous Sulfate (Ferrous Sulfate 324 Mg Tablet.Dr) 324 mg PO DAILY [facility] Stop: 01/04/26 08:59 Last Admin: 01/08/25 09:13 Dose: 324 mg Hydralazine HCl (Hydralazine 50 Mg Tablet) 50 mg PO BID [facility] Stop: 01/01/26 20:59 Last Admin: 01/02/25 08:49 Dose: Not Given Ipratropium Galien (Ipratropium Galien 0.5 Mg/2.5 Ml Vial.Neb) 0.5 mg INHALATION QID.RESP FERN Stop: 12/27/25 19:59 Last Admin: 01/08/25 13:28 Dose: Not Given Isosorbide Dinitrate (Isosorbide Dinitrate 10 Mg Tablet) 10 mg PO TID [facility] Stop: 12/27/25 21:59 Last Admin: 01/02/25 08:48 Dose: 10 mg Lactulose (Lactulose 20 Gm/30 Ml Udc) 30 gm PO DAILY PRN PRN Reason: Constipation Stop: 12/27/25 14:22 Melatonin (Melatonin 5 Mg Tablet) 5 mg PO QHS FERN Stop: 01/01/26 21:59 Last Admin: 01/07/25 20:28 Dose: 5 mg Metoprolol Succinate (Metoprolol Succinate 25 Mg Tab.Er.24h) 25 mg PO DAILY [facility] Stop: 01/03/26 08:59 Last Admin: 01/08/25 09:13 [...] (Phenyleph/Mineral Oil/Petrolat 57 Gm Tube) 1 applicator CA QID PRN PRN Reason: Hemorrhoids Stop: 01/04/26 [...] (5,000 Units) Capsule) 125 mcg PO DAILY [facility] Stop: 12/28/25 08:59 Last Admin: 01/08/25 09:12 Dose: 125 mcg Allergies simvastatin Allergy (Unknown, Verified 12/19/24 08:50) Unknown Reaction Lnnmfvx-OAP-GvY Reductase Inhibitor (Eoqynrj-Mpj-Ldh Reductase Inhibitor) Allergy (Unknown, Verified 12/19/24 08:50) [...] physician into a diagnostic report(s) for Delano Oliver. I have reviewed the report(s) and am [...] <Electronically signed by Kaitlynn Emanuel MD> 01/08/25 1507 [facility] Work Phone: [phone]) 145-783203-25-2025 Progress note Author Sotero Black [facility] HospitalNote Date/TimeMarch 2024 3:[place] [address] Physiatry(Rehab) Progress Note Signed Patient: Delano Oliver MR#: [id number] : 1940 Acct:[id number] Age/Sex: 84 / M Adm Date: 5 Loc: Room: [address] [place] [address] Type: ADM IN Attending Dr: Sotero Black MD Copies to: ~ Date of Service: 01/07/2025 Subjective Subjective Narrative: Mr. Oliver is a 84 year old male with [...] Allergy (Unknown, Verified 12/19/24 08:50) Unknown Reaction Zlqspmq-YPA-MgR Reductase Inhibitor (Mybnzcx-Ved-Jro Reductase Inhibitor) Allergy (Unknown, Verified 12/19/24 08:50) [...] 08:59 500 mg DAILY FERN Administration Balsam Norco/[place] Oil 1 applic 01/01/25 12:34 01/04/25 21:05 Balsam Qian/[place] Oil Oint 60 Gm Tube TOPICAL 01/01/26 12:33 1 applic BID PRN Administration tape caraballo Bisacodyl 10 mg 12/27/24 14:23 Bisacodyl 10 Mg Supp.Rect CA 12/27/25 14:22 DAILY PRN Constipation Budesonide/Formoterol Fumarate [...] 14:23 Docusate Enema 283 Mg/5 Ml Enema CA 12/27/25 14:22 DAILY PRN Constipation Ezetimibe 10 [...] 01/01/26 20:59 Not Given BID FERN Ipratropium Galien 0.5 mg 12/27/24 20:00 01/07/25 05:44 Ipratropium Galien 0.5 Mg/2.5 Ml Vial.Neb INHALATION 12/27/25 19:59 [...] 01/04/25 23:02 Phenyleph/Mineral Oil/Petrolat 57 Gm Tube CA 01/04/26 23:01 QID PRN Hemorrhoids Polyethylene Glycol [...] endurance, bed mobility, transfers (sit-stand), standing balance, gaitquality on level surfaces and stairs, coordination and functional ADL skills. Will also work to improve pt's safety awareness during transfers and ambulation. OT for basic ADL re-training (bathing, dressing, toileting, continence, grooming, feeding, transferring), to increase activity tolerance and functional mobility and to evaluate for adaptive and assistive devices. Will work to improve pt's endurance and educate pt on fall prevention and energy conser vationtechniques-pacing strategies and proper breathing techniques during functional [...] equipment to enhance the patient's a functional sikh Encourage deep breathing exercises and incentive spirometry [...] diabetes mellitus with hyperglycemia: Qualifiers: Diabetes mellitus watermelon inspector insulin use: without watermelon inspector use Qualified Code(s): E11.65 - Type 2 diabetes mellitus with hyperglycemia (10) Stage 4 chronic kidney disease: (11) A-fib: (12) Coronary artery disease: (13) Aspiration pneumonia: Plan Mr. Oliver is a 84 year old male with [...] I spent 28 minutes for services, including idjd-io-rtsg encounter with the patient, discussion of the case, plan of care, and exam; and asooddw-nd-qgvn activities, such as reviewing pertinent j2ee consultant documentation, recent therapynotes, laboratory and radiology studies, and discussion of case with care team including physician, nursing, outpatient case manager, and therapists. More than 50 % of time was spent on patient/family counseling or coordination ofcare. Documented By: Sotero Black MD 01/07/25 0903 Signed By: <Electronically signed by Sotero Black MD> 01/07/25 1540 [facility] Work Phone: 1([phone]) 183-534103-24-2025 Progress note Author Brenda Driscoll [facility] HospitalNote Date/TimeMarch 2024 1:41pm[place] [address] Physiatry(Rehab) Progress Note Signed Patient: Delano Oliver MR#: [id number] : 1940 Acct:[id number] Age/Sex: 84 / M Adm Date: 5 Loc: Room: 6R0817-7 Type: ADM IN Attending Dr: Sotero Black MD Copies to: ~ Date of Service: 01/06/2025 Subjective Subjective Narrative: Mr. Oliver is a 84 year old male with [...] feeling fairly well. No major complaints or concerns.Labs and vitals are relatively stable, although H&H [...] and obtained and summated medical records and haveordered follow up lab tests and imaging studies as needed for rehabilitation care. Medications and Allergies Allergies and Active Meds: Allergies simvastatin Allergy (Unknown, Verified 12/19/24 08:50) Unknown Reaction Caldxbt-IYP-YnU Reductase Inhibitor (Mfounlb-Xsc-Oub Reductase Inhibitor) Allergy (Unknown, Verified 12/19/24 08:50) [...] 08:59 500 mg DAILY FERN Administration Balsam Norco/[place] Oil 1 applic 01/01/25 12:34 01/04/25 21:05 Balsam Norco/[place] Oil Oint 60 Gm Tube TOPICAL 01/01/26 12:33 1 applic BID PRN Administration tape caraballo Bisacodyl 10 mg 12/27/24 14:23 Bisacodyl 10 Mg Supp.Rect CA 12/27/25 14:22 DAILY PRN Constipation Budesonide/Formoterol Fumarate [...] 14:23 Docusate Enema 283 Mg/5 Ml Enema CA 12/27/25 14:22 DAILY PRN Constipation Ezetimibe 10 [...] 01/01/26 20:59 Not Given BID FERN Ipratropium Galien 0.5 mg 12/27/24 20:00 01/06/25 09:22 Ipratropium Galien 0.5 Mg/2.5 Ml Vial.Neb INHALATION 12/27/25 19:59 [...] 01/04/25 23:02 Phenyleph/Mineral Oil/Petrolat 57 Gm Tube CA 01/04/26 23:01 QID PRN Hemorrhoids Polyethylene Glycol [...] endurance, bed mobility, transfers (sit-stand), standing balance, gaitquality on level surfaces and stairs, coordination and functional ADL skills. Will also work to improve pt's safety awareness during transfers and ambulation. OT for basic ADL re-training (bathing, dressing, toileting, continence, grooming, feeding, transferring), to increase activity tolerance and functional mobility and to evaluate for adaptive and assistive devices. Will work to improve pt's endurance and educate pt on fall prevention and energy conser vationtechniques-pacing strategies and proper breathing techniques during functional [...] equipment to enhance the patient's a functional sikh Encourage deep breathing exercises and incentive spirometry [...] diabetes mellitus with hyperglycemia: Qualifiers: Diabetes mellitus residential insulin use: without residential use Qualified Code(s): E11.65 - Type 2 diabetes mellitus with hyperglycemia (10) Stage 4 chronic kidney disease: (11) A-fib: (12) Coronary artery disease: (13) Aspiration pneumonia: Plan Mr. Oliver is a 84 year old male with [...] I spent 18 minutes for services, including dvoe-my-yzdh encounter with the patient, discussion of the case, plan of care, and exam; and qvlfhbv-lh-xvdt activities, such as reviewing pertinent j2ee consultant documentation, recent therapynotes, laboratory and radiology studies, and discussion of case with care team including physician, nursing, outpatient case manager, and therapists. More than 50 % of time was spent on patient/family counseling or coordination ofcare. <Statement entered by Sotero Black MD - 01/06/25 13:41> Patient was personally seen by me, Dr. Black, on the day of encounter, reviewed the history and therelevant portions of the chart, including current orders, allied health and j2ee consultant notes, labs/imaging and performed mckenna elements of exam and I formulated the plan of care and facilitated the medical decision making. I completed a substantive portion of this encounter, the medical decision makingportion of this note in its entirety, including Allied health note review, nursing note review, j2ee consultant note review,discussion with nursing and case management, and more than 50% of my time was spent on counseling and coordination of care, time spent 25 minutes Documented By: Brenda Driscoll APRN 01/06/25 1 220 Signed By: <Electronically signed by EDWARD Driscoll> 01/06/25 1225 <Electronically signed by Sotero Black MD> 01/06/25 1341 [facility] Work Phone: [phone]) [phone] Progress note Author Kaitlynn [facility] HospitalNote Date/TimeMarch 2024 1:35pm[place] [address] Nephrology Progress Note Signed Patient: Delano Oliver MR#: [id number] : 1940 Acct:[id number] Age/Sex: 84 / M Adm Date: 5 Loc: Room: 6O5991-1 Type: ADM IN Attending Dr: Sotero Black MD Copies to: ~ Date of Service: 01/06/2025 Subjective Subjective Narrative: This is a 84 male with medical history of CKD IV, HTN, A-fib, HFrEF, DM, gout and HLD was initiallyadmitted after mechanical fall for right hip fracture. [...] hydralazine and decrease metoprolol to25 mg daily. Patientalso remain off amlodipine Apixaban is on hold [...] Admin: 01/06/25 08:33 Dose: 500 mg Balsam Norco/[place] Oil (Balsam Norco/[place] Oil Oint 60 Gm Tube) 1 applic TOPICAL BID PRN PRN Reason: tape caraballo Stop: 01/01/26 12:33 Last Admin: 01/04/25 21:05 Dose: 1 applic Bisacodyl (Bisacodyl 10 Mg Supp.Rect) 10 mg CA DAILY PRN PRN Reason: Constipation Stop: 12/27/25 [...] Enema 283 Mg/5 Ml Enema) 283 mg CA DAILY PRN PRN Reason: Constipation Stop: 12/27/25 [...] Admin: 01/02/25 08:49 Dose: Not Given Ipratropium Galien (Ipratropium Galien 0.5 Mg/2.5 Ml Vial.Neb) 0.5 mg INHALATION [...] 25 Mg Tab.Er.24h) 25 mg PO DAILY [facility] Stop: 01/03/26 08:59 Last Admin: 01/06/25 08:33 [...] (Phenyleph/Mineral Oil/Petrolat 57 Gm Tube) 1 applicator CA QID PRN PRN Reason: Hemorrhoids Stop: 01/04/26 23:01 Polyethylene Glycol (Polyethylene Glycol 3350 17 Gm Powd.Pack) 17 gm PO DAILY [facility] Stop: 12/28/25 08:59 Last Admin: 01/06/25 08:33 [...] 10 Ml Syringe) 10 ml IV-PUSH Q8H [facility] Stop: 12/28/25 05:59 Last Admin: 01/06/25 05:38 Dose: 10 ml Vitamin D (Cholecalciferol 125 Mcg (5,000 Units) Capsule) 125 mcg PO DAILY [facility] Stop: 12/28/25 08:59 Last Admin: 01/06/25 08:33 Dose: 125 mcg Allergies simvastatin Allergy (Unknown, Verified 12/19/24 08:50) Unknown Reaction Lwdzeno-XTI-PuL Reductase Inhibitor (Mftfnvn-Brj-Bes Reductase Inhibitor) Allergy (Unknown, Verified 12/19/24 08:50) [...] physician into a diagnostic report(s) for Delano Oliver. I have reviewed the report(s) and am [...] CBC daily. Documented By: Kaitlynn Emanuel MD 01/06/25 3914 Signed By: <Electronically signed by Kaitlynn Emanuel MD> 01/06/25 2578 [facility] Work Phone: 1(870) 750-217003-24-2025 Progress note Author Clyde Bedolla [facility] HospitalNote Date/TimeMarch 2024 10:19pmJennifer [place] [id number] Physiatry(Rehab) Progress Note Signed Patient: Delano Oliver MR#: [id number] : 1940 Acct:[id number] Age/Sex: 84 / M Adm Date: 5 Loc: Room: 5L0592-0 Type: ADM IN Attending Dr: Sotero Black MD Copies to: ~ Date of Service: 01/05/2025 Subjective Subjective Narrative: Mr. Oliver is a 84 year old male with [...] Allergy (Unknown, Verified 12/19/24 08:50) Unknown Reaction Ddsdmpl-YKT-KmI Reductase Inhibitor (Cdknlfu-Ihw-Iem Reductase Inhibitor) Allergy (Unknown, Verified 12/19/24 08:50) [...] 08:59 500 mg DAILY FERN Administration Balsam Norco/[place] Oil 1 applic 01/01/25 12:34 01/04/25 21:05 Balsam Norco/[place] Oil Oint 60 Gm Tube TOPICAL 01/01/26 12:33 1 applic BID PRN Administration tape caraballo Bisacodyl 10 mg 12/27/24 14:23 Bisacodyl 10 Mg Supp.Rect CA 12/27/25 14:22 DAILY PRN Constipation Budesonide/Formoterol Fumarate [...] 14:23 Docusate Enema 283 Mg/5 Ml Enema CA 12/27/25 14:22 DAILY PRN Constipation Ezetimibe 10 [...] 01/01/26 20:59 Not Given BID FERN Ipratropium Galien 0.5 mg 12/27/24 20:00 01/05/25 18:09 Ipratropium Galien 0.5 Mg/2.5 Ml Vial.Neb INHALATION 12/27/25 19:59 [...] 01/04/25 23:02 Phenyleph/Mineral Oil/Petrolat 57 Gm Tube CA 01/04/26 23:01 QID PRN Hemorrhoids Polyethylene Glycol [...] endurance, bed mobility, transfers (sit-stand), standing balance, gaitquality on level surfaces and stairs, coordination and functional ADL skills. Will also work to improve pt's safety awareness during transfers and ambulation. OT for basic ADL re-training (bathing, dressing, toileting, continence, grooming, feeding, transferring), to increase activity tolerance and functional mobility and to evaluate for adaptive and assistive devices. Will work to improve pt's endurance and educate pt on fall prevention and energy conser vationtechniques-pacing strategies and proper breathing techniques during functional [...] equipment to enhance the patient's a functional sikh Encourage deep breathing exercises and incentive spirometry [...] diabetes mellitus with hyperglycemia: Qualifiers: Diabetes mellitus watermelon inspector insulin use: without watermelon inspector use Qualified Code(s): E11.65 - Type 2 diabetes mellitus with hyperglycemia (10) Stage 4 chronic kidney disease: (11) A-fib: (12) Coronary artery disease: (13) Aspiration pneumonia: Plan Mr. Oliver is a 84 year old male with [...] I spent 25 minutes for services, including lhcp-of-jlgc encounter with the patient, discussion of the case, plan of care, and exam; and pfjuoop-sa-eybb activities, such as reviewing pertinent j2ee consultant documentation, recent therapynotes, laboratory and radiology studies, and discussion of case with care team including physician, nursing, outpatient case manager, and therapists. More than 50 % of time was spent on patient/family counseling or coordination ofcare. Documented By: Clyde Bedolla MD 2215 Signed By: <Electronically signed by Clyde Bedolla MD> 01/05/252218 [facility] Work Phone: 1([phone] 282-872703-23-2025 Progress note Author Krysten Mcclelland [facility] HospitalNote Date/TimeMarch 2024 3:24pm[place] [address] Hospitalist Progress Note Signed Patient: Delano Oliver MR#: [id number] : 1940 Acct:[id number] Age/Sex: 84 / M Adm Date: 5 Loc: 5T Room: 6T6758-1 Type: ADM IN Attending Dr: Sotero Black [...] Allergy (Unknown, Verified 12/19/24 08:50) Unknown Reaction Lcaulfb-UXT-KyV Reductase Inhibitor (Eszqoxw-Dpv-Rhb Reductase Inhibitor) Allergy (Unknown, Verified 12/19/24 08:50) [...] 08:59 500 mg DAILY FERN Administration Balsam Norco/[place] Oil 1 applic 01/01/25 12:34 01/04/25 21:05 Balsam Norco/[place] Oil Oint 60 Gm Tube TOPICAL 01/01/26 12:33 1 applic BID PRN Administration tape caraballo Bisacodyl 10 mg 12/27/24 14:23 Bisacodyl 10 Mg Supp.Rect CA 12/27/25 14:22 DAILY PRN Constipation Budesonide/Formoterol Fumarate [...] 14:23 Docusate Enema 283 Mg/5 Ml Enema CA 12/27/25 14:22 DAILY PRN Constipation Ezetimibe 10 [...] 01/01/26 20:59 Not Given BID FERN Ipratropium Galien 0.5 mg 12/27/24 20:00 01/05/25 13:22 Ipratropium Galien 0.5 Mg/2.5 Ml Vial.Neb INHALATION 12/27/25 19:59 [...] 01/04/25 23:02 Phenyleph/Mineral Oil/Petrolat 57 Gm Tube CA 01/04/26 23:01 QID PRN Hemorrhoids Polyethylene Glycol [...] <Electronically signed by Sudha Sood MD> 01/05/25 [facility] Work Phone: [phone]) 611-889603-23-2025 Progress note Author Winsome NielsonWright-Patterson Medical CenterNote Date/TimeMarch 2024 2:19pm[place] [address] Nephrology Progress Note Signed Patient: Delano Oliver MR#: [id number] : 1940 Acct:[id number] Age/Sex: 84 / M Adm Date: 5 Loc: 5T Room: 4H1707-0 Type: ADM IN Attending Dr: Sotero Black MD Copies to: ~ Date of Service: 01/05/2025 Subjective Subjective Narrative: This is a 84 male with medical history of CKD IV, HTN, A-fib, HFrEF, DM, gout and HLD was initiallyadmitted after mechanical fall for right hip fracture. [...] stable 115/66 today after holding hydralazine anddecrease metoprololto 25 mg daily. Amlodipine was stopped. Apixaban is on hold because of concern about incipient bleeding at hip surgery site. Hemoglobin didimprove after transfusion and stable around 8 g/dL. Renal function started to improve with creatinine down to 2.73 mg/dL. He has good urine output 1400mL over the last 24-hour Exam Physical Exam [...] Admin: 01/05/25 09:34 Dose: 500 mg Balsam Norco/[place] Oil (Balsam Qian/[place] Oil Oint 60 Gm Tube) 1 applic TOPICAL BID PRN PRN Reason: tape caraballo Stop: 01/01/26 12:33 Last Admin: 01/04/25 21:05 Dose: 1 applic Bisacodyl (Bisacodyl 10 Mg Supp.Rect) 10 mg CA DAILY PRN PRN Reason: Constipation Stop: 12/27/25 [...] Enema 283 Mg/5 Ml Enema) 283 mg CA DAILY PRN PRN Reason: Constipation Stop: 12/27/25 [...] Admin: 01/02/25 08:49 Dose: Not Given Ipratropium Galien (Ipratropium Galien 0.5 Mg/2.5 Ml Vial.Neb) 0.5 mg INHALATION [...] 25 Mg Tab.Er.24h) 25 mg PO DAILY [facility] Stop: 01/03/26 08:59 Last Admin: 01/05/25 09:34 [...] (Phenyleph/Mineral Oil/Petrolat 57 Gm Tube) 1 applicator CA QID PRN PRN Reason: Hemorrhoids Stop: 01/04/26 23:01 Polyethylene Glycol (Polyethylene Glycol 3350 17 Gm Powd.Pack) 17 gm PO DAILY [facility] Stop: 12/28/25 08:59 Last Admin: 01/05/25 09:36 [...] 10 Ml Syringe) 10 ml IV-PUSH Q8H [facility] Stop: 12/28/25 05:59 Last Admin: 01/05/25 05:07 Dose: 10 ml Vitamin D (Cholecalciferol 125 Mcg (5,000 Units) Capsule) 125 mcg PO DAILY [facility] Stop: 12/28/25 08:59 Last Admin: 01/05/25 09:34 Dose: 125 mcg Allergies simvastatin Allergy (Unknown, Verified 12/19/24 08:50) Unknown Reaction Rtexuwc-JCW-NtK Reductase Inhibitor (Ebekytr-Thn-Jvx Reductase Inhibitor) Allergy (Unknown, Verified 12/19/24 08:50) [...] physician into a diagnostic report(s) for Delano Oliver. I have reviewed the report(s) and am [...] at 8 g/dL. Apixaban was held. No moreneed for blood transfusion at this point. * Stool for blood was positive. GI was consulted. Patient is known to have hemorrhoids on August 2024. No need to repeat colonoscopy. * Check renal function and CBC daily. Documented By: Winsome Goff MD 01/05/25 1418 Signed By: <Electronically signed by MD Winsome Goff> 01/05/25 1413 [facility] Work Phone: 1(589) 823-923203-22-2025 Progress note Author Winsome [facility] HospitalNote Date/TimeMarch 2024 5:[address] [address] Nephrology Progress Note Signed Patient: Delano Oliver MR#: [id number] : 1940 Acct:[id number] Age/Sex: 84 / M Adm Date: 5 Loc: Room: 3U0915-8 Type: ADM IN Attending Dr: Sotero Black MD Copies to: ~ Date of Service: 01/04/2025 Subjective Subjective Narrative: This is a 84 male with medical history of CKD IV, HTN, A-fib, HFrEF, DM, gout and HLD was initiallyadmitted after mechanical fall for right hip fracture. [...] incipient bleeding at hip surgery site. Hemoglobin didimprove up to 8 g/dL from 7.7 yesterday with no more transfusion. Renal function started to improve with creatinine down to 2.84 mg/dL. Exam Physical Exam Vital Signs: Temp Pulse Resp BP Pulse Ox O2 Del Method O2 Flow Rate 36.6 C 74 18 121/58 L 96 Room Air 1 01/04/25 14:27 01/04/25 14:27 01/04/25 14:27 01/04/25 14:27 01/04/25 14:27 01/04/25 14:27 12/30/24 05:00 Narrative: Constitutional: Appears comfortable and [...] 2.5 Mg Tablet) 2.5 mg PO BID [facility] Stop: 12/28/25 08:59 Last Admin: 12/31/24 08:30 Dose: 2.5 mg Ascorbic Acid (Ascorbic Acid 500 Mg Tablet) 500 mg PO DAILY [facility] Stop: 12/28/25 08:59 Last Admin: 01/04/25 08:16 Dose: 500 mg Balsam Norco/[place] Oil (Balsam Norco/[place] Oil Oint 60 Gm Tube) 1 applic TOPICAL BID PRN PRN Reason: tape caraballo Stop: 01/01/26 12:33 Last Admin: 01/02/25 14:36 Dose: 1 applic Bisacodyl (Bisacodyl 10 Mg Supp.Rect) 10 mg CA DAILY PRN PRN Reason: Constipation Stop: 12/27/25 14:22 Budesonide/Formoterol Fumarate (Budesonide/Formoterol 160-4.5 Mcg 120 Puff/10.2 Gm Hfa.Aer.Ad) 2 puff INHALATION BID [facility]ERN Stop: 12/28/25 08:59 Last Admin: 01/04/25 04:56 Dose: Not Given Calcium Carbonate (Calcium Carbonate/Vitamin D3 500 Mg/200 Unit Tablet) 1 tab PO TID.WITH.MEALS [facility] Stop: 12/27/25 16:59 Last Admin: 01/04/25 17:10 [...] Enema 283 Mg/5 Ml Enema) 283 mg CA DAILY PRN PRN Reason: Constipation Stop: 12/27/25 14:22 Ezetimibe (Ezetimibe 10 Mg Tablet) 10 mg PO DAILY [facility] Stop: 12/28/25 08:59 Last Admin: 01/04/25 08:15 Dose: 10 mg Ferrous Sulfate (Ferrous Sulfate 324 Mg Tablet.Dr) 324 mg PO DAILY [facility] Stop: 01/04/26 08:59 Last Admin: 01/04/25 08:16 Dose: 324 mg Hydralazine HCl (Hydralazine 50 Mg Tablet) 50 mg PO BID [facility] Stop: 01/01/26 20:59 Last Admin: 01/02/25 08:49 Dose: Not Given Ipratropium Galien (Ipratropium Galien 0.5 Mg/2.5 Ml Vial.Neb) 0.5 mg INHALATION QID.RESP [facility]ERN Stop: 12/27/25 19:59 Last Admin: 01/04/25 11:18 Dose: Not Given Isosorbide Dinitrate (Isosorbide Dinitrate 10 Mg Tablet) 10 mg PO TID [facility] Stop: 12/27/25 21:59 Last Admin: 01/02/25 08:48 Dose: 10 mg Lactulose (Lactulose 20 Gm/30 Ml Udc) 30 gm PO DAILY PRN PRN Reason: Constipation Stop: 12/27/25 14:22 Melatonin (Melatonin 5 Mg Tablet) 5 mg PO QHS [facility] Stop: 01/01/26 21:59 Last Admin: 01/03/25 21:24 Dose: 5 mg Metoprolol Succinate (Metoprolol Succinate 25 Mg Tab.Er.24h) 25 mg PO DAILY [facility] Stop: 01/03/26 08:59 Last Admin: 01/04/25 08:16 [...] 17 Gm Powd.Pack) 17 gm PO DAILY [facility] Stop: 12/28/25 08:59 Last Admin: 01/04/25 08:16 [...] Q8H [facility] Stop: 12/28/25 05:59 Last Admin: 01/04/25 14:19 Dose: 10 ml Vitamin D (Cholecalciferol 125 Mcg (5,000 Units) Capsule) 125 mcg PO DAILY [facility] Stop: 12/28/25 08:59 Last Admin: 01/04/25 08:15 Dose: 125 mcg Allergies simvastatin Allergy (Unknown, Verified 12/19/24 08:50) Unknown Reaction Pqgiaph-ETO-RqT Reductase Inhibitor (Twiqevu-Ocp-Myf Reductase Inhibitor) Allergy (Unknown, Verified 12/19/24 08:50) [...] physician into a diagnostic report(s) for Delano Oliver. I have reviewed the report(s) and am [...] and drop of hemoglobin. Patient back on [facility]. (2) Aspiration pneumonia: Assessment/Problem Details: Recovered, he [...] daily. Documented By: Winsome Goff MD 01/04/25 1747 Signed By: <Electronically signed by MD Winsome Goff> 01/04/25 7034 [facility] Work Phone: 1([phone]) 932-573703-22-2025 Progress note Author Brenda Driscoll [facility] HospitalNote Date/TimeMarch 2024 11:02pm[place] [address] Physiatry(Rehab) Progress Note Signed Patient: Delano Oliver MR#: [id number] : 1940 Acct:[id number] Age/Sex: 84 / M Adm Date: 5 Loc: Room: [address] [place] [address] Type: ADM IN Attending Dr: Sotero Black MD Copies to: ~ Date of Service: 01/03/2025 Subjective Subjective Narrative: Mr. Oliver is a 84 year old male with [...] the chair. He is alert, pleasant, oriented x3. Not having much pain today, just mild soreness after completing physical therapy. Reports no SOBor chest pain, no palpitations. I reviewed his morning labs; H&H is marginally better 7.7/22.0.I am inclined giving the patient an additional [...] not due to GI blood loss but ratherfrom intraoperative blood loss and CKD. I also reviewed notes from patient's last encounter with gastroenterology. Per Dr. Rascon, recommendation is to continue routine colonoscopies every 2 years in a tertiary facility due to patient's numerous comorbidities. I did explain this to patient's . He can be referred to or [facility] gastroenterology in outpatient settings. Dayan still wants [...] and obtained and summated medical records and haveordered follow up lab tests and imaging studies as needed for rehabilitation care. Medications and Allergies Allergies and Active Meds: Allergies simvastatin Allergy (Unknown, Verified 12/19/24 08:50) Unknown Reaction Bartinh-EBM-QqV Reductase Inhibitor (Hvjstab-Lsn-Mzk Reductase Inhibitor) Allergy (Unknown, Verified 12/19/24 08:50) [...] 08:59 500 mg DAILY FERN Administration Balsam Qian/[place] Oil 1 applic 01/01/25 12:34 01/02/25 14:36 Balsam Norco/[place] Oil Oint 60 Gm Tube TOPICAL 01/01/26 12:33 1 applic BID PRN Administration tape caraballo Bisacodyl 10 mg 12/27/24 14:23 Bisacodyl 10 Mg Supp.Rect CA 12/27/25 14:22 DAILY PRN Constipation Budesonide/Formoterol Fumarate 2 puff 12/28/24 09:00 01/03/25 08:12 Budesonide/Formoterol 160-4.5 Mcg 120 Puff/10.2 Gm Hfa.Aer.Ad INHALATION 12/28/25 08:59 Not Given BID [facility] Calcium Carbonate 1 tab 12/27/24 17:00 01/03/25 12:30 Calcium Carbonate/Vitamin D3 500 Mg/200 Unit Tablet PO 12/27/25 16:59 1 tab TID.WITH.MEALS [facility] Administration Diclofenac Sodium 2 gm 01/02/25 10:35 01/03/25 08:06 Diclofenac Sodium 1% Gel 100 Gm Tube TOPICAL 01/02/26 10:34 2 gm QID PRN Administration Muscle Pain Docusate Sodium 100 mg 12/27/24 14:23 Docusate 100 Mg Capsule PO 12/27/25 14:22 BID PRN Constipation Docusate Sodium 283 mg 12/27/24 14:23 Docusate Enema 283 Mg/5 Ml Enema CA 12/27/25 14:22 DAILY PRN Constipation Ezetimibe 10 mg 12/28/24 09:00 01/03/25 08:06 Ezetimibe 10 Mg Tablet PO 12/28/25 08:59 10 mg DAILY FERN Administration Ferrous Sulfate 324 mg 01/04/25 09:00 Ferrous Sulfate 324 Mg Tablet. PO 01/04/26 08:59 DAILY [facility] Hydralazine HCl 50 mg 01/01/25 21:00 01/02/25 08:49 Hydralazine 50 Mg Tablet PO 01/01/26 20:59 Not Given BID FERN Sodium Chloride 100 mls @ 20 mls/hr 01/03/25 09:45 0.9% Sodium Chloride 100 Ml IV 01/04/25 09:44 PROTOCOL PRN BLOOD TRANSFUSION Ipratropium Galien 0.5 mg 12/27/24 20:00 01/03/25 12:41 Ipratropium Galien 0.5 Mg/2.5 Ml Vial.Neb INHALATION 12/27/25 19:59 [...] endurance, bed mobility, transfers (sit-stand), standing balance, gaitquality on level surfaces and stairs, coordination and functional ADL skills. Will also work to improve pt's safety awareness during transfers and ambulation. OT for basic ADL re-training (bathing, dressing, toileting, continence, grooming, feeding, transferring), to increase activity tolerance and functional mobility and to evaluate for adaptive and assistive devices. Will work to improve pt's endurance and educate pt on fall prevention and energy conser vationtechniques-pacing strategies and proper breathing techniques during functional [...] equipment to enhance the patient's a functional sikh Encourage deep breathing exercises and incentive spirometry [...] diabetes mellitus with hyperglycemia: Qualifiers: Diabetes mellitus residential insulin use: without residential use Qualified Code(s): E11.65 - Type 2 diabetes mellitus with hyperglycemia (10) Stage 4 chronic kidney disease: (11) A-fib: (12) Coronary artery disease: (13) Aspiration pneumonia: Plan Mr. Oliver is a 84 year old male with [...] I spent 35 minutes for services, including odpy-be-cssd encounter with the patient, discussion of the case, plan of care, and exam; and sgqrraz-co-vven activities, such as reviewing pertinent j2ee consultant documentation, recent therapynotes, laboratory and radiology studies, and discussion of case with care team including physician, nursing, outpatient case manager, and therapists. More than 50 % of time was spent on patient/family counseling or coordination ofcare. <Statement entered by Clyde Bedolla MD - 01/03/25 23:02> This documentation has been reviewed and approved. Documented By: Brenda Driscoll APRN 01/03/25 1 000 Signed By: <Electronically signed by EDWARD Driscoll> 01/03/25 1406 <Electronically signed by Clyde Bedolla MD> 01/03/25 9389 [facility] Work Phone: 1(870) 391-397603-21-2025 Consult note Author Son Nicole [facility] Hospital[facility] Date/TimeMarch 2024 12:[place] [address] Gastroenterology Consult Note Signed Patient: Delano Oliver MR#: [id number] : 1940 Acct:[id number] Age/Sex: 84 / M Adm Date: 5 Loc: Room: 6Q6695-2 Type: ADM IN Attending Dr: Sotero Black MD Copies to: DO Son Lauren MD Joseph Riley, MD~ HPI Data of Consult Date of Consultation: 01/03/25 Requesting Physician: Sotero Black MD Consult Narrative History of present illness: Mr. Oliver is a 84 year old male nonischemic [...] negative unless noted below or in HPI [facility] Medical History Former smoker quit at age [...] Allergy (Unknown, Verified 12/19/24 08:50) Unknown Reaction Oyfohki-HMN-CwU Reductase Inhibitor (Yvdzjue-Fge-Cwf Reductase Inhibitor) Allergy (Unknown, Verified 12/19/24 08:50) [...] (5,000 unit) tablet 5,000 unit PO DAILY 03/01/24 [History Confirmed 12/27/24] metoprolol succinate 100 mg [...] mg PO DAILY #30 tabs 12/27/24 [Rx Yvpputemd95/14/25] azithromycin 250 mg tablet 500 mg (2 [...] Positive fecal occult blood test: Plan Mr. Oliver is a 84 year old male nonischemic [...] signed by Son Nicole MD> 01/03/25 1205 [facility] Work Phone: 1(996) 937-419603-20-2025 Progress note Author Winsome [facility] Hospital[facility] Date/TimeMarch 2024 2:[address] [place] [address] Nephrology Progress Note Signed Patient: Delano Oliver MR#: [id number] : 1940 Acct:[id number] Age/Sex: 84 / M Adm Date: 5 Loc: Room: 0Z2288-1 Type: ADM IN Attending Dr: Sotero Black MD Copies to: ~ Date of Service: 01/02/2025 Subjective Subjective Narrative: This is a 84 male with medical history of CKD IV, HTN, A-fib, HFrEF, DM, gout and HLD was initiallyadmitted after mechanical fall for right hip fracture. [...] 100 Mg Tablet) 100 mg PO BID [facility] Stop: 12/30/25 20:59 Last Admin: 01/02/25 08:48 Dose: 100 mg Amiodarone HCl (Amiodarone 200 Mg Tablet) 200 mg PO DAILY [facility] Stop: 12/28/25 08:59 Last Admin: 01/02/25 08:48 Dose: 200 mg Apixaban (Apixaban 2.5 Mg Tablet) 2.5 mg PO BID [facility] Stop: 12/28/25 08:59 Last Admin: 12/31/24 08:30 Dose: 2.5 mg Ascorbic Acid (Ascorbic Acid 500 Mg Tablet) 500 mg PO DAILY [facility] Stop: 12/28/25 08:59 Last Admin: 01/02/25 08:48 Dose: 500 mg Balsam Norco/[place] Oil (Balsam Norco/[place] Oil Oint 60 Gm Tube) 1 applic TOPICAL BID PRN PRN Reason: tape caraballo Stop: 01/01/26 12:33 Bisacodyl (Bisacodyl 10 Mg Supp.Rect) 10 mg CA DAILY PRN PRN Reason: Constipation Stop: 12/27/25 14:22 Budesonide/Formoterol Fumarate (Budesonide/Formoterol 160-4.5 Mcg 120 Puff/10.2 Gm Hfa.Aer.Ad) 2 puff INHALATION BID [facility] Stop: 12/28/25 08:59 Last Admin: 01/02/25 05:15 Dose: Not Given Calcium Carbonate (Calcium Carbonate/Vitamin D3 500 Mg/200 Unit Tablet) 1 tab PO TID.WITH.MEALS [facility] Stop: 12/27/25 16:59 Last Admin: 01/02/25 12:38 Dose: 1 tab Diclofenac Sodium (Diclofenac Sodium 1% Gel 100 Gm Tube) 2 gm TOPICAL QID PRN PRN Reason: Muscle Pain Stop: 01/02/26 10:34 Docusate Sodium (Docusate 100 Mg Capsule) 100 mg PO BID PRN PRN Reason: Constipation Stop: 12/27/25 14:22 Docusate Sodium (Docusate Enema 283 Mg/5 Ml Enema) 283 mg CA DAILY PRN PRN Reason: Constipation Stop: 12/27/25 14:22 Ezetimibe (Ezetimibe 10 Mg Tablet) 10 mg PO DAILY [facility] Stop: 12/28/25 08:59 Last Admin: 01/02/25 08:48 Dose: 10 mg Hydralazine HCl (Hydralazine 50 Mg Tablet) 50 mg PO BID [facility] Stop: 01/01/26 20:59 Last Admin: 01/02/25 08:49 Dose: Not Given Sodium Chloride (0.9% Sodium Chloride 100 Ml) 100 mls @ 20 mls/hr IV PROTOCOL PRN PRN Reason: BLOOD TRANSFUSION Stop: 01/03/25 09:01 Ipratropium Galien (Ipratropium Galien 0.5 Mg/2.5 Ml Vial.Neb) 0.5 mg INHALATION QID.RESP FERN Stop: 12/27/25 19:59 Last Admin: 01/02/25 14:11 Dose: Not Given Isosorbide Dinitrate (Isosorbide Dinitrate 10 Mg Tablet) 10 mg PO TID [facility] Stop: 12/27/25 21:59 Last Admin: 01/02/25 08:48 Dose: 10 mg Lactulose (Lactulose 20 Gm/30 Ml Udc) 30 gm PO DAILY PRN PRN Reason: Constipation Stop: 12/27/25 14:22 Melatonin (Melatonin 5 Mg Tablet) 5 mg PO QHS [facility] Stop: 01/01/26 21:59 Last Admin: 01/01/25 21:17 Dose: 5 mg Metoprolol Succinate (Metoprolol Succinate 25 Mg Tab.Er.24h) 25 mg PO DAILY [facility] Stop: 01/03/26 08:59 Oxycodone HCl (Oxycodone Ir [...] Allergy (Unknown, Verified 12/19/24 08:50) Unknown Reaction Knayjms-LRX-AgV Reductase Inhibitor (Fqtyafr-Npv-Mcz Reductase Inhibitor) Allergy (Unknown, Verified 12/19/24 08:50) [...] physician into a diagnostic report(s) for Delano Oliver. I have reviewed the report(s) and am [...] and he follow-up with Dr. Syed in [place]. * Will transfuse additional 1 unit of packed RBCs * Will decrease metoprolol to succinate to 25 mg daily and hold hydralazine as blood pressure is low. Amlodipine was stopped few days ago. * Apixaban was held as well. Patient will need Kcentra andexanet daisha to reverse apixaban action ifhemoglobin continues to drop. * Check renal function and CBC daily. Documented By: Winsome Goff MD 01/02/25 1419 Signed By: <Electronically signed by MD Winsome Goff> 01/02/25 1432 [facility] Work Phone: [phone] 166-699703-20-2025 Progress note Author Sotero Black [facility] HospitalNote Date/TimeMarch 2024 10:04[place] [address] Physiatry(Rehab) Progress Note Signed Patient: Delano Oliver MR#: [id number] : 1940 Acct:[id number] Age/Sex: 84 / M Adm Date: 5 Loc: 5T Room: 6Q2960-8 Type: ADM IN Attending Dr: Sotero Black MD Copies to: ~ Date of Service: 01/02/2025 Subjective Subjective Narrative: Mr. Oliver is a 84 year old male with [...] Allergy (Unknown, Verified 12/19/24 08:50) Unknown Reaction Ofgqwgt-PDN-BqS Reductase Inhibitor (Tzvmowu-Ncm-Ogb Reductase Inhibitor) Allergy (Unknown, Verified 12/19/24 08:50) [...] 08:59 500 mg DAILY FERN Administration Balsam Norco/[place] Oil 1 applic 01/01/25 12:34 Balsam Norco/[place] Oil Oint 60 Gm Tube TOPICAL 01/01/26 12:33 BID PRN tape caraballo Bisacodyl 10 mg 12/27/24 14:23 Bisacodyl 10 Mg Supp.Rect CA 12/27/25 14:22 DAILY PRN Constipation Budesonide/Formoterol Fumarate [...] 14:23 Docusate Enema 283 Mg/5 Ml Enema CA 12/27/25 14:22 DAILY PRN Constipation Ezetimibe 10 mg 12/28/24 09:00 01/01/25 09:03 Ezetimibe 10 Mg Tablet PO 12/28/25 08:59 10 mg DAILY FERN Administration Hydralazine HCl 50 mg 01/01/25 21:00 Hydralazine 50 Mg Tablet PO 01/01/26 20:59 BID FERN Ipratropium Galien 0.5 mg 12/27/24 20:00 01/01/25 12:00 Ipratropium Galien 0.5 Mg/2.5 Ml Vial.Neb INHALATION 12/27/25 19:59 [...] endurance, bed mobility, transfers (sit-stand), standing balance, gaitquality on level surfaces and stairs, coordination and functional ADL skills. Will also work to improve pt's safety awareness during transfers and ambulation. OT for basic ADL re-training (bathing, dressing, toileting, continence, grooming, feeding, transferring), to increase activity tolerance and functional mobility and to evaluate for adaptive and assistive devices. Will work to improve pt's endurance and educate pt on fall prevention and energy conser vationtechniques-pacing strategies and proper breathing techniques during functional [...] equipment to enhance the patient's a functional sikh Encourage deep breathing exercises and incentive spirometry [...] diabetes mellitus with hyperglycemia: Qualifiers: Diabetes mellitus residential insulin use: without watermelon inspector use Qualified Code(s): E11.65 - Type 2 diabetes mellitus with hyperglycemia (10) Stage 4 chronic kidney disease: (11) A-fib: (12) Coronary artery disease: (13) Aspiration pneumonia: Plan Mr. Oliver is a 84 year old male with [...] or so. Defer to nephrology for recommendation oftransfusion. Overall, he is improving from a symptom [...] day of encounter, reviewed the history and therelevant portions of the chart, including current orders, allied health and j2ee consultant notes, labs/imaging and performed mckenna elements of exam and I formulated the plan of care and facilitated the medical decision making. I completed a substantive portion of this encounter, the medical decision makingportion of this note in its entirety, including Allied health note review, nursing note review, j2ee consultant note review,discussion with nursing and case management, and more than 50% of my time was spent on counseling and coordination of care, time spent 26 minutes Documented By: Sotero Black MD 01/01/25 1524 Signed By: <Electronically signed by Sotero Black MD> 01/02/25 1003 [facility] Work Phone: [phone]) 246-932703-19-2025 Progress note Author Winsome Goff [facility] HospitalNote Date/TimeMarch 2024 3:07[place] [address] Nephrology Progress Note Signed Patient: Delano Oliver MR#: [id number] : 1940 Acct:[id number] Age/Sex: 84 / M Adm Date: Loc: 5T Room: [address] [place] [address] Type: ADM IN Attending Dr: Sotero Black MD Copies to: ~ Date of Service: 01/01/2025 Subjective Subjective Narrative: This is a 84 male with medical history of CKD IV, HTN, A-fib, HFrEF, DM, gout and HLD was initiallyadmitted after mechanical fall for right hip fracture. [...] Admin: 01/01/25 09:03 Dose: 500 mg Balsam Qian/[place] Oil (Balsam Norco/[place] Oil Oint 60 Gm Tube) 1 applic TOPICAL BID PRN PRN Reason: tape caraballo Stop: 01/01/26 12:33 Bisacodyl (Bisacodyl 10 Mg Supp.Rect) 10 mg CA DAILY PRN PRN Reason: Constipation Stop: 12/27/25 [...] Enema 283 Mg/5 Ml Enema) 283 mg CA DAILY PRN PRN Reason: Constipation Stop: 12/27/25 [...] Reason: BLOOD TRANSFUSION Stop: 01/01/25 15:09 Ipratropium Galien (Ipratropium Galien 0.5 Mg/2.5 Ml Vial.Neb) 0.5 mg INHALATION [...] 100 Mg Tab.Er.24h) 100 mg PO DAILY [facility] Stop: 12/28/25 08:59 Last Admin: 01/01/25 09:03 [...] 17 Gm Powd.Pack) 17 gm PO DAILY [facility] Stop: 12/28/25 08:59 Last Admin: 01/01/25 09:03 [...] 10 Ml Syringe) 10 ml IV-PUSH Q8H [facility] Stop: 12/28/25 05:59 Last Admin: 01/01/25 03:48 Dose: 10 ml Vitamin D (Cholecalciferol 125 Mcg (5,000 Units) Capsule) 125 mcg PO DAILY [facility] Stop: 12/28/25 08:59 Last Admin: 01/01/25 09:03 Dose: 125 mcg Allergies simvastatin Allergy (Unknown, Verified 12/19/24 08:50) Unknown Reaction Evzabwt-IAH-SuR Reductase Inhibitor (Dkwcbcb-Bli-Jnn Reductase Inhibitor) Allergy (Unknown, Verified 12/19/24 08:50) Muscle Pain tramadol Allergy (Verified 12/19/24 08:50) Itching niacin ER Allergy (Uncoded 11/07/24 08:31) itching Results - Nephrology Labs 01/01/25 05:04 12/31/24 04:56 Radiology Impressions Impressions - last 24 hours: Any impression(s) listed above is documentation that was entered by the reading physician into a diagnostic report(s) for Delano Oliver. I have reviewed the report(s) and am [...] stage IV and he follow-up with Dr. Sonam Saunders. * Hemoglobin did improve after 1 unit of packed RBCs. * Blood pressure still relatively low. Will decrease hydralazine to 50 mg twice a day. Amlodipine was stopped yesterday. Patient on metoprolol 100 mg daily that can be decreased to 50 mg if blood pressure still low. * Check renal function and CBC daily. Documented By: Winsome Goff MD 01/01/25 9248 Signed By: <Electronically signed by MD Winsome Goff> 01/01/25 7524 [facility] Work Phone: [phone]) [phone] Progress note Author Winsome [facility] HospitalNote Date/TimeMarch 2024 [place] [id number] Nephrology Progress Note Signed Patient: Delano Oliver MR#: [id number] : 1940 Acct:[id number] Age/Sex: 84 / M Adm Date: 5 Loc: Room: 8I8026-0 Type: ADM IN Attending Dr: Sotero Black MD Copies to: ~ Date of Service: 12/31/2024 Subjective Subjective Narrative: This is a 84 male with medical history of CKD IV, HTN, A-fib, HFrEF, DM, gout and HLD was initiallyadmitted after mechanical fall for right hip fracture. [...] Bisacodyl (Bisacodyl 10 Mg Supp.Rect) 10 mg CA DAILY PRN PRN Reason: Constipation Stop: 12/27/25 14:22 Budesonide/Formoterol Fumarate (Budesonide/Formoterol 160-4.5 Mcg 120 Puff/10.2 Gm Hfa.Aer.Ad) 2 puff INHALATION BID [facility] Stop: 12/28/25 08:59 Last Admin: 12/31/24 06:34 Dose: Not Given Calcium Carbonate (Calcium Carbonate/Vitamin D3 500 Mg/200 Unit Tablet) 1 tab PO TID.WITH.MEALS [facility] Stop: 12/27/25 16:59 Last Admin: 12/31/24 12:53 Dose: 1 tab Docusate Sodium (Docusate 100 Mg Capsule) 100 mg PO BID PRN PRN Reason: Constipation Stop: 12/27/25 14:22 Docusate Sodium (Docusate Enema 283 Mg/5 Ml Enema) 283 mg CA DAILY PRN PRN Reason: Constipation Stop: 12/27/25 14:22 Ezetimibe (Ezetimibe 10 Mg Tablet) 10 mg PO DAILY [facility] Stop: 12/28/25 08:59 Last Admin: 12/31/24 08:30 Dose: 10 mg Hydralazine HCl (Hydralazine 50 Mg Tablet) 100 mg PO TID [facility] Stop: 12/27/25 21:59 Last Admin: 12/31/24 08:31 Dose: Not Given Sodium Chloride (0.9% Sodium Chloride 100 Ml) 100 mls @ 20 mls/hr IV PROTOCOL PRN PRN Reason: BLOOD TRANSFUSION Stop: 01/01/25 12:03 Ipratropium Galien (Ipratropium Galien 0.5 Mg/2.5 Ml Vial.Neb) 0.5 mg INHALATION [...] 100 Mg Tab.Er.24h) 100 mg PO DAILY [facility] Stop: 12/28/25 08:59 Last Admin: 12/31/24 08:30 [...] 17 Gm Powd.Pack) 17 gm PO DAILY [facility] Stop: 12/28/25 08:59 Last Admin: 12/31/24 08:30 [...] 10 Ml Syringe) 10 ml IV-PUSH Q8H [facility] Stop: 12/28/25 05:59 Last Admin: 12/31/24 05:13 Dose: 10 ml Vitamin D (Cholecalciferol 125 Mcg (5,000 Units) Capsule) 125 mcg PO DAILY [facility] Stop: 12/28/25 08:59 Last Admin: 12/31/24 08:30 Dose: 125 mcg Allergies simvastatin Allergy (Unknown, Verified 12/19/24 08:50) Unknown Reaction Yujpdbs-AXB-HlG Reductase Inhibitor (Chjjjiy-Ozf-Sxy Reductase Inhibitor) Allergy (Unknown, Verified 12/19/24 08:50) [...] physician into a diagnostic report(s) for Delano Xochilt Oliver. I have reviewed the report(s) and am [...] and he follow-up with Dr. Syed in [place]. * Hemoglobin did drop down to 7.6 [...] daily. Documented By: Winsome Goff MD 12/31/24 1504 Signed By: <Electronically signed by MD Winsome Goff> 12/31/24 7380 [facility] Work Phone: [phone]) 970-651003-18-2025 Progress note Author Sotero Black [facility] Hospital[facility] Date/TimeMarch 2024 12:09[place] [address] Physiatry(Rehab) Progress Note Signed Patient: Delano Oliver MR#: [id number] : 1940 Acct:[id number] Age/Sex: 84 / M Adm Date: 5 Loc: Room: [address] [place] [address] Type: ADM IN Attending Dr: Sotero Black MD Copies to: ~ Date of Service: 12/30/2024 Subjective Subjective Narrative: Mr. Oliver is a 84 year old male with [...] % (Auto) N/A Lymph % (Auto) N/A [place] % (Auto) N/A Eos % (Auto) N/A Baso % (Auto) N/A Nucleat RBC Rel Count N/A Neut # (Auto) N/A Lymph # (Auto) N/A [place] # (Auto) N/A Eos # (Auto) N/A [...] Allergy (Unknown, Verified 12/19/24 08:50) Unknown Reaction Czqlinl-JDZ-RkH Reductase Inhibitor (Iqrvfkl-Owp-Zau Reductase Inhibitor) Allergy (Unknown, Verified 12/19/24 08:50) [...] Tablet PO 12/28/25 08:59 Not Given DAILY [facility] Amiodarone HCl 200 mg 12/28/24 09:00 12/30/24 10:49 Amiodarone 200 Mg Tablet PO 12/28/25 08:59 Not Given DAILY [facility] Amlodipine Besylate 10 mg 12/28/24 09:00 12/30/24 10:49 Amlodipine 10 Mg Tablet PO 12/28/25 08:59 Not Given DAILY [facility] Apixaban 2.5 mg 12/28/24 09:00 12/30/24 10:49 Apixaban 2.5 Mg Tablet PO 12/28/25 08:59 Not Given BID [facility] Ascorbic Acid 500 mg 12/28/24 09:00 12/30/24 10:49 Ascorbic Acid 500 Mg Tablet PO 12/28/25 08:59 Not Given DAILY [facility] Bisacodyl 10 mg 12/27/24 14:23 Bisacodyl 10 Mg Supp.Rect CA 12/27/25 14:22 DAILY PRN Constipation Budesonide/Formoterol Fumarate 2 puff 12/28/24 09:00 12/30/24 06:37 Budesonide/Formoterol 160-4.5 Mcg 120 Puff/10.2 Gm Hfa.Aer.Ad INHALATION 12/28/25 08:59 Not Given BID [facility] Calcium Carbonate 1 tab 12/27/24 17:00 12/30/24 11:04 Calcium Carbonate/Vitamin D3 500 Mg/200 Unit Tablet PO 12/27/25 16:59 1 tab TID.WITH.MEALS [facility] Administration Docusate Sodium 100 mg 12/27/24 14:23 Docusate 100 Mg Capsule PO 12/27/25 14:22 BID PRN Constipation Docusate Sodium 283 mg 12/27/24 14:23 Docusate Enema 283 Mg/5 Ml Enema CA 12/27/25 14:22 DAILY PRN Constipation Ezetimibe 10 mg 12/28/24 09:00 12/30/24 10:50 Ezetimibe 10 Mg Tablet PO 12/28/25 08:59 Not Given DAILY [facility] Hydralazine HCl 100 mg 12/27/24 22:00 12/30/24 10:50 Hydralazine 50 Mg Tablet PO 12/27/25 21:59 Not Given TID [facility] Ipratropium Galien 0.5 mg 12/27/24 20:00 12/30/24 12:10 Ipratropium Galien 0.5 Mg/2.5 Ml Vial.Neb INHALATION 12/27/25 19:59 [...] endurance, bed mobility, transfers (sit-stand), standing balance, gaitquality on level surfaces and stairs, coordination and functional ADL skills. Will also work to improve pt's safety awareness during transfers and ambulation. OT for basic ADL re-training (bathing, dressing, toileting, continence, grooming, feeding, transferring), to increase activity tolerance and functional mobility and to evaluate for adaptive and assistive devices. Will work to improve pt's endurance and educate pt on fall prevention and energy conser vationtechniques-pacing strategies and proper breathing techniques during functional [...] equipment to enhance the patient's a functional sikh Encourage deep breathing exercises and incentive spirometry [...] diabetes mellitus with hyperglycemia: Qualifiers: Diabetes mellitus residential insulin use: without watermelon inspector use Qualified Code(s): E11.65 - Type 2 diabetes mellitus with hyperglycemia (10) Stage 4 chronic kidney disease: (11) A-fib: (12) Coronary artery disease: (13) Aspiration pneumonia: Plan Mr. Oliver is a 84 year old male with [...] day of encounter, reviewed the history and therelevant portions of the chart, including current orders, allied health and j2ee consultant notes, labs/imaging and performed mckenna elements of exam and I formulated the plan of care and facilitated the medical decision making. I completed a substantive portion of this encounter, the medical decision makingportion of this note in its entirety, including Allied health note review, nursing note review, j2ee consultant note review,discussion with nursing and case management, and more than 50% of my time was spent on counseling and coordination of care, time spent 20 minutes Documented By: Sotero Black MD 12/30/24 9498 Signed By: <Electronically signed by Sotero Black MD> 12/31/24 1208 [facility] Work Phone: 1(240) 327-890303-17-2025 Progress note Author Winsome Goff [facility] Date/TimeMarch 2024 5:13pmJennifer [place] [id number] Nephrology Progress Note Signed Patient: Delano Oliver MR#: [id number] : 1940 Acct:[id number] Age/Sex: 84 / M Adm Date: Loc: 5T Room: 3K6467-9 Type: ADM IN Attending Dr: Sotero Black MD Copies to: ~ Date of Service: 12/30/2024 Subjective Subjective Narrative: This is a 84 male with medical history of CKD IV, HTN, A-fib, HFrEF, DM, gout and HLD was initiallyadmitted after mechanical fall for right hip fracture. [...] 12/30/24 14:23 12/30/24 14:23 12/30/24 14:23 12/30/24 14:12/30/24 05:00 Narrative: Constitutional: Appears comfortable and [...] Bisacodyl (Bisacodyl 10 Mg Supp.Rect) 10 mg CA DAILY PRN PRN Reason: Constipation Stop: 12/27/25 14:22 Budesonide/Formoterol Fumarate (Budesonide/Formoterol 160-4.5 Mcg 120 Puff/10.2 Gm Hfa.Aer.Ad) 2 puff INHALATION BID [facility] Stop: 12/28/25 08:59 Last Admin: 12/30/24 06:37 Dose: Not Given Calcium Carbonate (Calcium Carbonate/Vitamin D3 500 Mg/200 Unit Tablet) 1 tab PO TID.WITH.MEALS [facility] Stop: 12/27/25 16:59 Last Admin: 12/30/24 11:04 Dose: 1 tab Docusate Sodium (Docusate 100 Mg Capsule) 100 mg PO BID PRN PRN Reason: Constipation Stop: 12/27/25 14:22 Docusate Sodium (Docusate Enema 283 Mg/5 Ml Enema) 283 mg CA DAILY PRN PRN Reason: Constipation Stop: 12/27/25 14:22 Ezetimibe (Ezetimibe 10 Mg Tablet) 10 mg PO DAILY [facility] Stop: 12/28/25 08:59 Last Admin: 12/30/24 10:50 Dose: Not Given Hydralazine HCl (Hydralazine 50 Mg Tablet) 100 mg PO TID [facility] Stop: 12/27/25 21:59 Last Admin: 12/30/24 15:11 Dose: 100 mg Ipratropium Galien (Ipratropium Galien 0.5 Mg/2.5 Ml Vial.Neb) 0.5 mg INHALATION [...] 100 Mg Tab.Er.24h) 100 mg PO DAILY [facility] Stop: 12/28/25 08:59 Last Admin: 12/30/24 10:50 [...] 17 Gm Powd.Pack) 17 gm PO DAILY [facility] Stop: 12/28/25 08:59 Last Admin: 12/30/24 10:50 [...] 10 Ml Syringe) 10 ml IV-PUSH Q8H [facility] Stop: 12/28/25 05:59 Last Admin: 12/30/24 15:11 Dose: 10 ml Vitamin D (Cholecalciferol 125 Mcg (5,000 Units) Capsule) 125 mcg PO DAILY [facility] Stop: 12/28/25 08:59 Last Admin: 12/30/24 10:49 Dose: Not Given Allergies simvastatin Allergy (Unknown, Verified 12/19/24 08:50) Unknown Reaction Opztbqc-MSB-FfN Reductase Inhibitor (Ftaiumh-Fhx-Wjf Reductase Inhibitor) Allergy (Unknown, Verified 12/19/24 08:50) [...] Scott Jr., D.O.12/30/2024 1:24 PM Dictation Location: [facility]- Venous Duplex 12/30/24 05:00 IMPRESSION: NO EVIDENCE FOR DEEP VEIN THROMBOSIS OR PROXIMAL SUPERFICIAL THROMBOPHLEBITIS INTHE RIGHT OR LEFT LOWER EXTREMITY. Impression dictated by: Dominik Lugo M.D.12/30/2024 12:28 PM Dictation Location: [place] [address] Any impression(s) listed above is documentation that was entered by the reading physician into a diagnostic report(s) for Delano Oliver. I have reviewed the report(s) and am [...] and he follow-up with Dr. Syed in [place]. * Hemoglobin did drop down to 7.7 g/dL after restarting Eliquis 2.5 mg twice a day. Will recheck CBC tomorrow and if hemoglobin continues to drop, will hold Eliquis. Will transfuse if hemoglobin below 7 g/dL. Information about Watchman device was discussed with the patient and his . 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 [place] and stated that he is not required [...] <Electronically signed by MD Winsome Goff> 12/30/24 1713 [facility] Work Phone: [phone] [facility]iology [facility] Work Phone: [phone]) 441-482603-16-2025 Progress note Author Zoie Field [facility] HospitalNote Date/TimeMarch 2024 4:[place] [address] Hospitalist Progress Note Signed Patient: Delano Oliver MR#: [id number] : 1940 Acct:[id number] Age/Sex: 84 / M Adm Date: 5 Loc: Room: [address] [place] [address] Type: ADM IN Attending Dr: Sotero Black [...] edema. bilateral venous stasis and varicosities. Right back tender insulation board hallux and distal metatarsals, no warmth, mild erythema hallux, dorsal foot edema, painful right ankle ROM. Left foot no edema warmth or erythema however tender overall SKIN- W/D, good turgor, right dressing in place surgical site not seen Objective Lab Results 12/28/24 05:22 12/28/24 05:22 Meds Allergies and Active Meds Allergies simvastatin Allergy (Unknown, Verified 12/19/24 08:50) Unknown Reaction Dihqtja-LJN-MsI Reductase Inhibitor (Kcwcwnd-Wio-Khn Reductase Inhibitor) Allergy (Unknown, Verified 12/19/24 08:50) [...] mg 12/27/24 14:23 Bisacodyl 10 Mg Supp.Rect CA 12/27/25 14:22 DAILY PRN Constipation Budesonide/Formoterol Fumarate 2 puff 12/28/24 09:00 12/29/24 05:58 Budesonide/Formoterol 160-4.5 Mcg 120 Puff/10.2 Gm Hfa.Aer.Ad INHALATION 12/28/25 08:59 Not Given BID [facility] Calcium Carbonate 1 tab 12/27/24 17:00 12/29/24 12:12 Calcium Carbonate/Vitamin D3 500 Mg/200 Unit Tablet PO 12/27/25 16:59 1 tab TID.WITH.MEALS [facility] Administration Docusate Sodium 100 mg 12/27/24 14:23 Docusate 100 Mg Capsule PO 12/27/25 14:22 BID PRN Constipation Docusate Sodium 283 mg 12/27/24 14:23 Docusate Enema 283 Mg/5 Ml Enema CA 12/27/25 14:22 DAILY PRN Constipation Ezetimibe 10 mg 12/28/24 09:00 12/29/24 09:30 Ezetimibe 10 Mg Tablet PO 12/28/25 08:59 10 mg DAILY [facility] Administration Hydralazine HCl 100 mg 12/27/24 22:00 12/29/24 09:30 Hydralazine 50 Mg Tablet PO 12/27/25 21:59 100 mg TID [facility]ERN Administration Ipratropium Galien 0.5 mg 12/27/24 20:00 12/29/24 12:15 Ipratropium Galien 0.5 Mg/2.5 Ml Vial.Neb INHALATION 12/27/25 19:59 [...] transfusion while in hospital, trend lab, transfuse tomaintain hemoglobin > 8 -Defer postoperative questions or [...] By: <Electronically signed by EDWARD Field> 12/29/24 8319 [facility] Work Phone: [phone] Consult note Author Zoie Field [facility] HospitalNote Date/TimeMarch 2024 5:13[place] [address] Hospitalist Consult Note Signed Patient: Delano Oliver MR#: [id number] : 1940 Acct:[id number] Age/Sex: 84 / M Adm Date: 5 Loc: Room: [address] [place] [address] Type: ADM IN Attending Dr: Sotero Black [...] MOLINA, diabetes, CKD 4, secondary hypothyroidism, hyperuricemia, coloncancer posthemicolectomy. Patient initially presented to [place] emergency department December 21 after sustaining a fall and subsequent right hip fracture. Transferred to [facility] for further management. Preoperative cardiac clearance [...] subsequently discharged to the acute inpatientrehab unit . Plan for resumption of apixaban December 28 [...] negative unless noted below or in HPI [facility] Medical History Former smoker quit at age [...] Allergy (Unknown, Verified 12/19/24 08:50) Unknown Reaction Zzofiji-ARI-KgF Reductase Inhibitor (Whsjupg-Wqs-Fvh Reductase Inhibitor) Allergy (Unknown, Verified 12/19/24 08:50) [...] mg PO DAILY #30 tabs 12/27/24 [Rx Grzkgqbxr74/14/25] azithromycin 250 mg tablet 500 mg (2 [...] Dose Route Start Last Admin Trade Name Marnie PRN Reason Stop Dose Admin Acetaminophen 500 [...] mg 12/27/24 14:23 Bisacodyl 10 Mg Supp.Rect CA 12/27/25 14:22 DAILY PRN Constipation Budesonide/Formoterol Fumarate 2 puff 12/28/24 09:00 12/28/24 06:17 Budesonide/Formoterol 160-4.5 Mcg 120 Puff/10.2 Gm Hfa.Aer.Ad INHALATION 12/28/25 08:59 Not Given BID [facility] Calcium Carbonate 1 tab 12/27/24 17:00 12/28/24 12:02 Calcium Carbonate/Vitamin D3 500 Mg/200 Unit Tablet PO 12/27/25 16:59 1 tab TID.WITH.MEALS [facility] Administration Docusate Sodium 100 mg 12/27/24 14:23 Docusate 100 Mg Capsule PO 12/27/25 14:22 BID PRN Constipation Docusate Sodium 283 mg 12/27/24 14:23 Docusate Enema 283 Mg/5 Ml Enema CA 12/27/25 14:22 DAILY PRN Constipation Ezetimibe 10 mg 12/28/24 09:00 12/28/24 09:20 Ezetimibe 10 Mg Tablet PO 12/28/25 08:59 10 mg DAILY [facility] Administration Hydralazine HCl 100 mg 12/27/24 22:00 12/28/24 14:52 Hydralazine 50 Mg Tablet PO 12/27/25 21:59 100 mg TID [facility] Administration Ipratropium Galien 0.5 mg 12/27/24 20:00 12/28/24 14:49 Ipratropium Galien 0.5 Mg/2.5 Ml Vial.Neb INHALATION 12/27/25 19:59 [...] % (Auto) N/A, Lymph % (Auto) N/A, Llano % (Auto) N/A, Eos % (Auto) N/A,Baso % (Auto) N/A, Nucleat RBC Rel Count N/A, Neut # (Auto) N/A, Lymph # (Auto) N/A, Ll[place] # (Auto) N/A, Eos # (Auto) N/A, Baso # (Auto) N/A, Lymphocytes % 9 L, Monocytes % 7, Metamyelocytes % 1 H, Segmented Neutrophils 83 H, Platelet Estimate Normal, Plt Morphology Comment Normal, RBC Morphology N/A, Polychromasia Slight, Hypochromasia Slight, Anisocytosis Slight, PHA Creatinine Clear 22.60, Sodium 137, Potassium 3.9, Chloride 94 L, Carbon Dioxide 36.7 H, An ion Gap 10.2, BUN 87 H, Creatinine 2.96 [...] transfusion while in hospital, trend lab, transfuse tomaintain hemoglobin > 8 -Defer postoperative questions or [...] By: <Electronically signed by EDWARD Field> 12/28/24 8404 [facility] Work Phone: [phone] Progress note Author Zahida Flowers [facility] HospitalNote Date/TimeMarch 2024 2:44[place] [address] Nephrology Progress Note Signed Patient: Delano Oliver MR#: [id number] : 1940 Acct:[id number] Age/Sex: 84 / M Adm Date: 5 Loc: Room: [address] [place] [address] Type: ADM IN Attending Dr: Sotero Black [...] now moved to the inpatient rehab. Nephrology cons ulted for WICHO on CKD care during his [...] Skin: No rashes , warm to touch COMMERCIAL CRABBER: Awake,Alert, following simple command Musculoskeletal: No swelling [...] Bisacodyl (Bisacodyl 10 Mg Supp.Rect) 10 mg CA DAILY PRN PRN Reason: Constipation Stop: 12/27/25 [...] Enema 283 Mg/5 Ml Enema) 283 mg CA DAILY PRN PRN Reason: Constipation Stop: 12/27/25 14:22 Ezetimibe (Ezetimibe 10 Mg Tablet) 10 mg PO DAILY [facility] Stop: 12/28/25 08:59 Last Admin: 12/28/24 09:20 Dose: 10 mg Hydralazine HCl (Hydralazine 50 Mg Tablet) 100 mg PO TID [facility] Stop: 12/27/25 21:59 Last Admin: 12/28/24 09:20 Dose: 100 mg Ipratropium Galien (Ipratropium Galien 0.5 Mg/2.5 Ml Vial.Neb) 0.5 mg INHALATION QID.RESP [facility] Stop: 12/27/25 19:59 Last Admin: 12/28/24 11:40 Dose: Not Given Isosorbide Dinitrate (Isosorbide Dinitrate 10 Mg Tablet) 10 mg PO TID [facility] Stop: 12/27/25 21:59 Last Admin: 12/28/24 09:23 [...] Allergy (Unknown, Verified 12/19/24 08:50) Unknown Reaction Odltdmf-VVC-SnB Reductase Inhibitor (Muzdesz-Vuo-Dvt Reductase Inhibitor) Allergy (Unknown, Verified 12/19/24 08:50) [...] physician into a diagnostic report(s) for Delano Oliver. I have reviewed the report(s) and am [...] signed by Zahida Flowers MD> 12/28/24 1444 [facility] Work Phone: [phone] History and physical note Author Sotero Black [facility] HospitalNote Date/TimeMarch 2024 12:40pm[place] [address] Physiatry (Rehab) H&P Signed Patient: Delano Oliver MR#: [id number] : 1940 Acct:[id number] Age/Sex: 84 / M Adm Date: 5 Loc: Room: 8R4291-9 Type: ADM IN Attending Dr: Sotero Black MD Copies to: DO Sotero Lauren MD~ Date of Service: 12/28/2024 HPI The patient was seen and examined on: 12/28/24 Etiologic Diagnosis/Impairment Group: [id number] Chief complaint: Pain, loss of function History of Present Illness: Mr. Oliver is a 84 year old male with [...] anemia. He is cleared to resume ittoday. [facility] Medical History Former smoker quit at age [...] Allergy (Unknown, Verified 12/19/24 08:50) Unknown Reaction Wmetzjy-LNA-XoN Reductase Inhibitor (Qlkykru-Kua-Mkz Reductase Inhibitor) Allergy (Unknown, Verified 12/19/24 08:50) [...] mg PO DAILY #30 tabs 12/27/24 [Rx Zatpccdga39/14/25] azithromycin 250 mg tablet 500 mg (2 [...] Bisacodyl (Bisacodyl 10 Mg Supp.Rect) 10 mg CA DAILY PRN PRN Reason: Constipation Stop: 12/27/25 14:22 Budesonide/Formoterol Fumarate (Budesonide/Formoterol 160-4.5 Mcg 120 Puff/10.2 Gm Hfa.Aer.Ad) 2 puff INHALATION BID [facility] Stop: 12/28/25 08:59 Calcium Carbonate (Calcium Carbonate/Vitamin D3 500 Mg/200 Unit Tablet) 1 tab PO TID.WITH.MEALS [facility] Stop: 12/27/25 16:59 Last Admin: 12/27/24 16:14 Dose: 1 tab Docusate Sodium (Docusate 100 Mg Capsule) 100 mg PO BID PRN PRN Reason: Constipation Stop: 12/27/25 14:22 Docusate Sodium (Docusate Enema 283 Mg/5 Ml Enema) 283 mg CA DAILY PRN PRN Reason: Constipation Stop: 12/27/25 14:22 Ezetimibe (Ezetimibe 10 Mg Tablet) 10 mg PO DAILY [facility] Stop: 12/28/25 08:59 Hydralazine HCl (Hydralazine 50 Mg Tablet) 100 mg PO TID [facility] Stop: 12/27/25 21:59 Ipratropium Galien (Ipratropium Galien 0.5 Mg/2.5 Ml Vial.Neb) 0.5 mg INHALATION QID.RESP [facility] Stop: 12/27/25 19:59 Isosorbide Dinitrate (Isosorbide Dinitrate 10 Mg Tablet) 10 mg PO TID [facility] Stop: 12/27/25 21:59 Lactulose (Lactulose 20 Gm/30 Ml Udc) 30 gm PO DAILY PRN PRN Reason: Constipation Stop: 12/27/25 14:22 Metoprolol Succinate (Metoprolol Succinate 100 Mg Tab.Er.24h) 100 mg PO DAILY [facility] Stop: 12/28/25 08:59 Oxycodone HCl (Oxycodone Ir 5 Mg Tablet) 5 mg PO Q4HR PRN PRN Reason: Pain Scale 4 - 7 Oxycodone HCl (Oxycodone Ir 5 Mg Tablet) 10 mg PO Q4HR PRN PRN Reason: Pain Scale 8 - 10 Polyethylene Glycol (Polyethylene Glycol 3350 17 Gm Powd.Pack) 17 gm PO DAILY [facility] Stop: 12/28/25 08:59 Sennosides (Sennosides 8.6 Mg Tablet) 17.2 mg PO DAILY@12 PRN PRN Reason: If no BM in 2 days Stop: 12/28/25 11:59 Sodium Chloride (Sodium Chloride 0.9 % 10 Ml Syringe) 0 ml IV-PUSH PRN PRN PRN Reason: Flush Stop: 12/27/25 14:22 Vitamin D (Cholecalciferol 125 Mcg (5,000 Units) Capsule) 125 mcg PO DAILY [facility] Stop: 12/28/25 08:59 Exam Physical Exam Vital [...] and obtained and summated medical records and haveordered follow up lab tests and imaging studies as needed for rehabilitation care. Individualized Plan of Care Individualized Plan of Care Plan of Care: Individualized Overall Plan of Care: Admit Date/Time: December 27, 2024 Expected LOS: 14 days Expected Discharge Destination: Home Rehabilitation [facility] [place]: 05.26 Primary Diagnosis: as above Patient?s/Family?s anticipated [...] improve pt's strength, endurance, bed mobility, transfers (sit- stand), standing balance, gait quality on level surfaces [...] 24 hour daily monitoring and intervention from Horticulture Superintendent as well as other consulting physicians including internal medicine as well as 24 hour daily missionary coordinator nursing - for medical safe / optimal manageme nt. Patient requires interdisciplinary therapy team rehabilitation care including OT, PT, SW, RehabNursing, requires and can tolerate at least 3 [...] endurance, bed mobility, transfers (sit-stand), standing balance, gaitquality on level surfaces and stairs, coordination and functional ADL skills. Will also work to improve pt's safety awareness during transfers and ambulation. OT for basic ADL re-training (bathing, dressing, toileting, continence, grooming, feeding, transferring), to increase activity tolerance and functional mobility and to evaluate for adaptive and assistive devices. Will work to improve pt's endurance and educate pt on fall prevention and energy conser vationtechniques-pacing strategies and proper breathing techniques during functional [...] equipment to enhance the patient's a functional sikh Encourage deep breathing exercises and incentive spirometry [...] diabetes mellitus with hyperglycemia: Qualifiers: Diabetes mellitus residential insulin use: without watermelon inspector use Qualified Code(s): E11.65 - Type 2 diabetes mellitus with hyperglycemia (10) Stage 4 chronic kidney disease: (11) A-fib: (12) Coronary artery disease: (13) Aspiration pneumonia: Plan Mr. Oliver is a 84 year old male with [...] Allied health note review, nursing note review, j2ee consultant note review,discussion with nursing and case management, and more than 50% of my time was spent on counseling and coordination of care, time spent 65 minutes Patient was personally seen by me, Dr. Black, on the day of encounter, within 24hours of rehab admission, reviewed the history and the relevant portions of the chart, including current orders, alliedhealth and j2ee consultant notes, labs/imaging and performed mckenna elements of exam and I formulated the plan of care and facilitated the medical decision making. Documented By: Sotero Black MD 12/27/24 1730 Signed By: <Electronically signed by Sotero Black MD> 12/28/24 1246 [facility] Work Phone: [phone] Progress note Author Emile Reynolds [facility] Date/TimeMarch 2024 1:[address] [place] [address] Hospitalist Progress Note Signed Patient: Delano Oliver MR#: [id number] : 1940 Acct:[id number] Age/Sex: 84 / M Adm Date: 5 Loc: N Room: [address] [place] [address] Type: ADM IN Attending Dr: Emile Reynolds [...] Allergy (Unknown, Verified 12/19/24 08:50) Unknown Reaction Qndkdgi-TQZ-KmY Reductase Inhibitor (Xofyrub-Rma-Kjy Reductase Inhibitor) Allergy (Unknown, Verified 12/19/24 08:50) [...] 1324 Signed By: <Electronically signed by Emile Reynolds, DO> 12/26/24 1331 [facility] Work Phone: [phone] Progress note Author Zahida Flowers [facility] Hospital[facility] Date/TimeMarch 2024 12:[address] [place] [address] Nephrology Progress Note Signed Patient: Delano Oliver MR#: [id number] : 1940 Acct:[id number] Age/Sex: 84 / M Adm Date: 5 Loc: Room: [address] [place] [address] Type: ADM IN Attending Dr: Emile Reynolds [...] Skin: No rashes , warm to touch COMMERCIAL CRABBER: Awake,Alert, following simple command Musculoskeletal: No swelling [...] (Amoxicillin/Clav 500-125 Mg Tablet) 1 tab POBID [facility] Stop: 12/28/24 20:59 Last Admin: 12/26/24 08:11 Dose: 1 tab Ascorbic Acid (Ascorbic Acid 500 Mg Tablet) 500 mg PO DAILY [facility] Stop: 12/23/25 08:59 Last Admin: 12/26/24 08:11 Dose: 500 mg Azithromycin (Azithromycin 250 Mg Tablet) 500 mg PO Q24H [facility] Stop: 12/28/24 23:00 Last Admin: 12/25/24 16:38 [...] Puff Inhaler *Nf*) 1 puff INHALATION DAILY [facility] Stop: 12/23/25 08:59 Last Admin: 12/26/24 10:38 Dose: 1 puff Furosemide (Furosemide 80 Mg Tablet) 80 mg PO DAILY [facility] Stop: 12/25/25 10:14 Last Admin: 12/26/24 08:11 Dose: 80 mg Hydralazine HCl (Hydralazine 20 Mg/Ml Vial) 10 mg IV-PUSH Q4H PRN PRN Reason: if SBP > 185 Stop: 12/21/25 22:29 Hydralazine HCl (Hydralazine 50 Mg Tablet) 100 mg PO TID [facility] Stop: 12/22/25 08:59 Last Admin: 12/26/24 08:12 [...] 10 Mg Tablet) 10 mg PO TID [facility] Stop: 12/22/25 08:59 Last Admin: 12/26/24 08:11 Dose: 10 mg Lidocaine HCl (Lidocaine 1% 50 Ml Vial) 0.1 ml INTRADERMA PREOP PRN PRN Reason: Venipuncture x 1 Dose Magnesium Hydroxide (Magnesium Hydroxide Susp 30 Ml Udc) 30 ml PO DAILY PRN PRN Reason: Constipation Stop: 12/22/25 11:11 Metoprolol Succinate (Metoprolol Succinate 100 Mg Tab.Er.24h) 100 mg PO DAILY [facility] Stop: 12/22/25 08:59 Last Admin: 12/26/24 08:11 [...] 8.6 Mg Tablet) 17.2 mg PO BID [facility] Stop: 12/22/25 08:59 Last Admin: 12/26/24 08:11 Dose: 17.2 mg Sodium Chloride (Sodium Chloride 0.9 % 10 Ml Syringe) 0 ml IV-PUSH PRN PRN PRN Reason: Flush Stop: 12/22/25 11:11 Allergies simvastatin Allergy (Unknown, Verified 12/19/24 08:50) Unknown Reaction Fsyhxzu-RFS-DyQ Reductase Inhibitor (Ftaqhpr-Tvt-Lnh Reductase Inhibitor) Allergy (Unknown, Verified 12/19/24 08:50) [...] physician into a diagnostic report(s) for Delano Oliver. I have reviewed the report(s) and am [...] mellitus with hyperglycemia: Assessment/Problem Details: He has hbz-lkypjqh-pkfrnsndl type 2 diabetes mellitus currently on diet [...] signed by Zahida Flowers MD> 12/26/24 1231 [facility] Work Phone: [phone] [place] [address] Hospitalist Progress Note Signed Patient: Delano Oliver MR#: [id number] : 1940 Acct:[id number] Age/Sex: 84 / M Adm Date: 5 Loc: 4N Room: 3D3173-3 Type: ADM IN Attending Dr: Emile Reynolds [...] Allergy (Unknown, Verified 12/19/24 08:50) Unknown Reaction Uphxgiv-JTG-RdR Reductase Inhibitor (Ubccoxw-Utd-Juk Reductase Inhibitor) Allergy (Unknown, Verified 12/19/24 08:50) [...] DO 12/26/24 1324 Signed By: 12/26/24 1331 [facility]03-13-2025 [place] [address] Nephrology Progress Note Signed Patient: Delano Oliver MR#: [id number] : 1940 Acct:[id number] Age/Sex: 84 / M Adm Date: 5 Loc: Room: 3E4884-0 Type: ADM IN Attending Dr: Emile Reynolds [...] Skin: No rashes , warm to touch COMMERCIAL CRABBER: Awake,Alert, following simple command Musculoskeletal: No swelling [...] 100 Mg Capsule) 100 mg PO BID [facility] Stop: 12/23/25 20:59 Last Admin: 12/26/24 08:10 Dose: 100 mg Fluticasone/Umeclidinium/Vilanterol (Fluticas/Umeclidin/Vilanter 200-62.5-25 Mcg28 Puff Inhaler *Nf*) 1 puff INHALATION DAILY [facility] Stop: 12/23/25 08:59 Last Admin: 12/26/24 10:38 Dose: 1 puff Furosemide (Furosemide 80 Mg Tablet) 80 mg PO DAILY [facility] Stop: 12/25/25 10:14 Last Admin: 12/26/24 08:11 Dose: 80 mg Hydralazine HCl (Hydralazine 20 Mg/Ml Vial) 10 mg IV-PUSH Q4H PRN PRN Reason: if SBP > 185 Stop: 12/21/25 22:29 Hydralazine HCl (Hydralazine 50 Mg Tablet) 100 mg PO TID [facility] Stop: 12/22/25 08:59 Last Admin: 12/26/24 08:12 [...] 10 Mg Tablet) 10 mg PO TID [facility] Stop: 12/22/25 08:59 Last Admin: 12/26/24 08:11 Dose: 10 mg Lidocaine HCl (Lidocaine 1% 50 Ml Vial) 0.1 ml INTRADERMA PREOP PRN PRN Reason: Venipuncture x 1 Dose Magnesium Hydroxide (Magnesium Hydroxide Susp 30 Ml Udc) 30 ml PO DAILY PRN PRN Reason: Constipation Stop: 12/22/25 11:11 Metoprolol Succinate (Metoprolol Succinate 100 Mg Tab.Er.24h) 100 mg PO DAILY [facility] Stop: 12/22/25 08:59 Last Admin: 12/26/24 08:11 Dose: 100 mg Multivitamins (Multivitamin 1 Tab Tablet) 1 tab PO DAILY [facility] Stop: 12/23/25 08:59 Last Admin: 12/26/24 08:10 [...] 17 Gm Powd.Pack) 17 gm PO DAILY [facility] Stop: 12/22/25 08:59 Last Admin: 12/26/24 08:10 Dose: 17 gm Sennosides (Sennosides 8.6 Mg Tablet) 17.2 mg PO BID [facility] Stop: 12/22/25 08:59 Last Admin: 12/26/24 08:11 Dose: 17.2 mg Sodium Chloride (Sodium Chloride 0.9 % 10 Ml Syringe) 0 ml IV-PUSH PRN PRN PRN Reason: Flush Stop: 12/22/25 11:11 Allergies simvastatin Allergy (Unknown, Verified 12/19/24 08:50) Unknown Reaction Enethmz-IZZ-VmQ Reductase Inhibitor (Hhcivzw-Bpq-Lap Reductase Inhibitor) Allergy (Unknown, Verified 12/19/24 08:50) [...] physician into a diagnostic report(s) for Delano Oliver. I have reviewed the report(s) and am [...] mellitus with hyperglycemia: Assessment/Problem Details: He has tda-tobwxpx-bxeiclttm type 2 diabetes mellitus currently on diet [...] MD 12/26/24 1230 Signed By: 12/26/24 1231 [facility]03-12-2025 Consult note Author Clyde Bedolla [facility] Hospital[facility] Date/TimeMarch 2024 2:07[place] [address] Physiatry (Rehab) Consult Note Signed Patient: Delano Oliver MR#: [id number] : 1940 Acct:[id number] Age/Sex: 84 / M Adm Date: 5 Loc: Room: [address] [place] [address] Type: ADM IN Attending Dr: Emile Reynolds DO Copies to: DO Clyde Lauren MD Shawn J Warner, DO~ HPI Consult Date: 12/25/24 Requesting Physician: Emile Reynolds DO Primary Care Provider: Yas Linda DO Consult Narrative Reason for consult: Evaluation for inpatient rehab HPI: Mr. 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8 Eos # (Auto) 0.1 [...] diabetes mellitus with hyperglycemia: Qualifiers: Diabetes mellitus watermelon inspector insulin use: without watermelon inspector use Qualified Code(s): E11.65 - Type 2 [...] chart, including current orders, allied health and j2ee consultant notes, labs/imaging and performed mckenna elements of exam and I formulated the plan of care and facilitated the medical decision making. I completed a substantive portion of this encounter, the medical decision makingportion of this note in its entirety, including Allied health note review, nursing note review, j2ee consultant note review,discussion with nursing and case management, and more than 50% of my time was spent on counseling and coordinationof care, time spent 50 minutes Documented By: Clyde Bedolla MD 1323 Signed By: <Electronically signed by Clyde Bedolla MD> 12/25/24 6732 [facility] Work Phone: 1(266) 677-584203-12-2025 Progress note Author Emile Reynolds [facility] HospitalNote Date/TimeMarch 2024 12:17[place] [address] Hospitalist Progress Note Signed Patient: Delano Oliver MR#: [id number] : 1940 Acct:[id number] Age/Sex: 84 / M Adm Date: 5 Loc: 4N Room: [address] [place] [address] Type: ADM IN Attending Dr: Emile Reynolds [...] Allergy (Unknown, Verified 12/19/24 08:50) Unknown Reaction Oxoxsbe-NFK-JvN Reductase Inhibitor (Evnzukg-Nda-Epj Reductase Inhibitor) Allergy (Unknown, Verified 12/19/24 08:50) [...] <Electronically signed by Emile Reynolds DO> 12/25/24 [facility]7 [facility] Work Phone: 1(132) 227-296503-12-2025 [place] [address] Physiatry (Rehab) Consult Note Signed Patient: Delano Oliver MR#: [id number] : 1940 Acct:[id number] Age/Sex: 84 / M Adm Date: 5 Loc: 4N Room: 0N6607-8 Type: ADM IN Attending Dr: Emile Reynolds DO Copies to: DO Clyde Lauren MD Shawn J Warner, ~ HPI Consult Date: 12/25/24 Requesting Physician: Emile Reynolds DO Primary Care Provider: Yas Linda DO Consult Narrative Reason for consult: Evaluation for inpatient rehab HPI: Mr. Oliver is a 84 year old male with PMH nonischemic cardiomyopathy w/ RENE 35% s/p ICD/defibirllator, afib on Eliquis, CKD with baseline cr 2.7 who presented to the [facility] following a fall from a step [...] negative unless noted below or in HPI [facility] Medical History (Updated 12/24/24 @ 15:28 by [...] Allergy (Unknown, Verified 12/19/24 08:50) Unknown Reaction Nhxpcde-IPM-WpJ Reductase Inhibitor (Sefrxtt-Nxu-Vrd Reductase Inhibitor) Allergy (Unknown, Verified 12/19/24 08:50) [...] % (Auto) 79.2 Lymph % (Auto) 9.0 [place] % (Auto) 10.2 Eos % (Auto) 1.4 Baso % (Auto) 0.2 Nucleat RBC Rel Count 0.1 Neut # (Auto) 6.3 Lymph # (Auto) 0.7 L [place] # (Auto) 0.8 Eos # (Auto) 0.1 [...] diabetes mellitus with hyperglycemia: Qualifiers: Diabetes mellitus watermelon inspector insulin use: without residential use Qualified Code(s): E11.65 - Type 2 [...] chart, including current orders, allied health and j2ee consultant notes, labs/imaging and performed mckenna elements of exam and I formulated the plan of care and facilitated the medical decision making. I completed a substantive portion of this encounter, the medical decision makingportion of this note in its entirety, including Allied health note review, nursing note review, j2ee consultant note review,discussion with nursing and case management, and more than 50% of my time was spent on counseling and coordinationof care, time spent 50 minutes Documented By: Clyde Bedolla MD 1323 Signed By: 12/25/24 1407 [facility]03-12-2025 Progress note Author Zahida Flowers [facility] HospitalNote Date/TimeMarch 2024 12:04pm[place] [address] Nephrology Progress Note Signed Patient: Delano Oliver MR#: [id number] : 1940 Acct:[id number] Age/Sex: 84 / M Adm Date: 5 Loc: 4N Room: [address] [place] [address] Type: ADM IN Attending Dr: Emile Reynolds [...] Skin: No rashes , warm to touch COMMERCIAL CRABBER: Awake,Alert, following simple command Musculoskeletal: No swelling [...] Puff Inhaler *Nf*) 1 puff INHALATION DAILY [facility] Stop: 12/23/25 08:59 Last Admin: 12/25/24 08:42 Dose: 1 puff Furosemide (Furosemide 80 Mg Tablet) 80 mg PO DAILY [facility] Stop: 12/25/25 10:14 Last Admin: 12/25/24 11:33 Dose: 80 mg Hydralazine HCl (Hydralazine 20 Mg/Ml Vial) 10 mg IV-PUSH Q4H PRN PRN Reason: if SBP > 185 Stop: 12/21/25 22:29 Hydralazine HCl (Hydralazine 50 Mg Tablet) 100 mg PO TID [facility] Stop: 12/22/25 08:59 Last Admin: 12/25/24 08:40 [...] 10 Mg Tablet) 10 mg PO TID [facility] Stop: 12/22/25 08:59 Last Admin: 12/25/24 08:41 Dose: 10 mg Lidocaine HCl (Lidocaine 1% 50 Ml Vial) 0.1 ml INTRADERMA PREOP PRN PRN Reason: Venipuncture x 1 Dose Magnesium Hydroxide (Magnesium Hydroxide Susp 30 Ml Udc) 30 ml PO DAILY PRN PRN Reason: Constipation Stop: 12/22/25 11:11 Metoprolol Succinate (Metoprolol Succinate 100 Mg Tab.Er.24h) 100 mg PO DAILY [facility] Stop: 12/22/25 08:59 Last Admin: 12/25/24 08:40 [...] Allergy (Unknown, Verified 12/19/24 08:50) Unknown Reaction Kftokdx-RMI-HrY Reductase Inhibitor (Jjxkhrr-Hpl-Rlt Reductase Inhibitor) Allergy (Unknown, Verified 12/19/24 08:50) [...] physician into a diagnostic report(s) for Delano Oliver. I have reviewed the report(s) and am [...] mellitus with hyperglycemia: Assessment/Problem Details: He has xhc-wmdmyfb-mtbusoych type 2 diabetes mellitus currently on diet [...] bedside. Documented By: Zahida Flowers MD 12/25/24 1155 Signed By: <Electronically signed by Zahida Flowers MD> 12/25/24 1202 [facility] Work Phone: 1(510) 559-169403-12-2025 Progress note Author Walker Soria [facility] HospitalNote Date/TimeMarch 2024 10:25[place] [address] Orthopedic Progress Note Signed Patient: Delano Oliver MR#: [id number] : 1940 Acct:[id number] Age/Sex: 84 / M Adm Date: 5 Loc: 4N Room: 1X4998-8 Type: ADM IN Attending Dr: Emile Reynolds [...] % (Auto) 79.2 Lymph % (Auto) 9.0 [place] % (Auto) 10.2 Eos % (Auto) 1.4 Baso % (Auto) 0.2 Nucleat RBC Rel Count 0.1 Neut # (Auto) 6.3 Lymph # (Auto) 0.7 L [place] # (Auto) 0.8 Eos # (Auto) 0.1 [...] <Electronically signed by MD Walker Soria> 12/25/24 1026 [facility] Work Phone: 1(392) 736-260803-12-[address] [address] Hospitalist Progress Note Signed Patient: Delano Oliver MR#: [id number] : 1940 Acct:[id number] Age/Sex: 84 / M Adm Date: 5 Loc: 4N Room: [address] [place] [address] Type: ADM IN Attending Dr: Emile Reynolds [...] Allergy (Unknown, Verified 12/19/24 08:50) Unknown Reaction Hkgnvvt-YJG-VkJ Reductase Inhibitor (Mdxmuyr-Wvb-Las Reductase Inhibitor) Allergy (Unknown, Verified 12/19/24 08:50) [...] DO 12/25/24 1213 Signed By: 12/25/24 1217 [facility]03-12-2025 Progress note Author Walker Soria [facility] HospitalNote Date/TimeMarch 2024 10:[address] [address] Orthopedic Progress Note Signed Patient: Delano Oliver MR#: [id number] : 1940 Acct:[id number] Age/Sex: 84 / M Adm Date: 5 Loc: 4N Room: [address] [place] [address] Type: ADM IN Attending Dr: Emile Reynolds [...] % (Auto) 89.8 Lymph % (Auto) 3.3 [place] % (Auto) 6.6 Eos % (Auto) 0.1 Baso % (Auto) 0.2 Nucleat RBC Rel Count 0.0 Neut # (Auto) 11.3 H Lymph # (Auto) 0.4 L [place] # (Auto) 0.8 Eos # (Auto) 0.0 [...] 7.7 Neut % (Auto) Lymph % (Auto) [place] % (Auto) Eos % (Auto) Baso % (Auto) Nucleat RBC Rel Count Neut # (Auto) Lymph # (Auto) [place] # (Auto) Eos # (Auto) Baso # [...] postop Documented By: Walker Soria MD 12/24/24 1111 Signed By: <Electronically signed by MD Walker Soria> 12/25/24 [facility]4 [facility] Work Phone: 1(555) 324-819103-12-[address] [address] Nephrology Progress Note Signed Patient: Delano Oliver MR#: [id number] : 1940 Acct:[id number] Age/Sex: 84 / M Adm Date: 5 Loc: 4N Room: [id number] Type: ADM IN Attending Dr: Emile Reynolds [...] Skin: No rashes , warm to touch COMMERCIAL CRABBER: Awake,Alert, following simple command Musculoskeletal: No swelling or limitation of movement of the large joints Psychiatric: Cooperative, normal mood and affect Objective Intake and Output I&O: Intake & Output 12/23/24 12/23/24 12/24/24 12/25/24 00:59 23:59 23:59 23:59 Intake Total 2310 / 2310 2800 / 2800 2300 / 2300 Output Total 2000 / 2000 1100 / 1100 1150 / 1150 Balance [...] 100 Mg Tablet) 100 mg PO DAILY [facility] Stop: 12/22/25 08:59 Last Admin: 12/25/24 08:41 Dose: 100 mg Amiodarone HCl (Amiodarone 200 Mg Tablet) 200 mg PO DAILY [facility] Stop: 12/22/25 08:59 Last Admin: 12/25/24 08:40 Dose: 200 mg Amlodipine Besylate (Amlodipine 10 Mg Tablet) 10 mg PO DAILY [facility] Stop: 12/22/25 08:59 Last Admin: 12/24/24 08:38 Dose: Not Given Amoxicillin/Clavulanate Potassium (Amoxicillin/Clav 500-125 Mg Tablet) 1 tab POBID [facility] Stop: 12/28/24 20:59 Last Admin: 12/25/24 08:40 [...] Mg/200 Unit Tablet) 1 tab PO TID.WITH.MEALS [facility] Stop: 12/22/25 11:59 Last Admin: 12/25/24 11:33 Dose: 1 tab Diphenhydramine HCl (Diphenhydramine 25 Mg Capsule) 25 mg PO Q6H PRN PRN Reason: Itching Stop: 12/23/25 13:12 Docusate Sodium (Docusate 100 Mg Capsule) 200 mg PO BID PRN PRN Reason: Constipation Stop: 12/21/25 22:29 Docusate Sodium (Docusate 100 Mg Capsule) 100 mg PO BID [facility] Stop: 12/23/25 20:59 Last Admin: 12/25/24 08:41 Dose: 100 mg Fluticasone/Umeclidinium/Vilanterol (Fluticas/Umeclidin/Vilanter 200-62.5-25 Mcg28 Puff Inhaler *Nf*) 1 puff INHALATION DAILY [facility] Stop: 12/23/25 08:59 Last Admin: 12/25/24 08:42 Dose: 1 puff Furosemide (Furosemide 80 Mg Tablet) 80 mg PO DAILY [facility] Stop: 12/25/25 10:14 Last Admin: 12/25/24 11:33 Dose: 80 mg Hydralazine HCl (Hydralazine 20 Mg/Ml Vial) 10 mg IV-PUSH Q4H PRN PRN Reason: if SBP > 185 Stop: 12/21/25 22:29 Hydralazine HCl (Hydralazine 50 Mg Tablet) 100 mg PO TID [facility] Stop: 12/22/25 08:59 Last Admin: 12/25/24 08:40 [...] 10 Mg Tablet) 10 mg PO TID [facility] Stop: 12/22/25 08:59 Last Admin: 12/25/24 08:41 Dose: 10 mg Lidocaine HCl (Lidocaine 1% 50 Ml Vial) 0.1 ml INTRADERMA PREOP PRN PRN Reason: Venipuncture x 1 Dose Magnesium Hydroxide (Magnesium Hydroxide Susp 30 Ml Udc) 30 ml PO DAILY PRN PRN Reason: Constipation Stop: 12/22/25 11:11 Metoprolol Succinate (Metoprolol Succinate 100 Mg Tab.Er.24h) 100 mg PO DAILY [facility] Stop: 12/22/25 08:59 Last Admin: 12/25/24 08:40 Dose: 100 mg Multivitamins (Multivitamin 1 Tab Tablet) 1 tab PO DAILY [facility] Stop: 12/23/25 08:59 Last Admin: 12/25/24 08:41 [...] 17 Gm Powd.Pack) 17 gm PO DAILY [facility] Stop: 12/22/25 08:59 Last Admin: 12/25/24 08:39 Dose: 17 gm Sennosides (Sennosides 8.6 Mg Tablet) 17.2 mg PO BID [facility] Stop: 12/22/25 08:59 Last Admin: 12/25/24 08:39 Dose: 17.2 mg Sodium Chloride (Sodium Chloride 0.9 % 10 Ml Syringe) 0 ml IV-PUSH PRN PRN PRN Reason: Flush Stop: 12/22/25 11:11 Allergies simvastatin Allergy (Unknown, Verified 12/19/24 08:50) Unknown Reaction Urtfnop-IHF-EpG Reductase Inhibitor (Orwovyv-Aiz-Yln Reductase Inhibitor) Allergy (Unknown, Verified 12/19/24 08:50) [...] physician into a diagnostic report(s) for Delano Oliver. I have reviewed the report(s) and am [...] mellitus with hyperglycemia: Assessment/Problem Details: He has zdy-bokrtvb-ujqnyowiu type 2 diabetes mellitus currently on diet [...] MD 12/25/24 1159 Signed By: 12/25/24 1204 [facility]03-12-2025 [place] [id number] Orthopedic Progress Note Signed Patient: Delano Oliver MR#: [id number] : 1940 Acct:[id number] Age/Sex: 84 / M Adm Date: 5 Loc: 4N Room: [address] [place] [address] Type: ADM IN Attending Dr: Emile Reynolds [...] % (Auto) 79.2 Lymph % (Auto) 9.0 [place] % (Auto) 10.2 Eos % (Auto) 1.4 Baso % (Auto) 0.2 Nucleat RBC Rel Count 0.1 Neut # (Auto) 6.3 Lymph # (Auto) 0.7 L [place] # (Auto) 0.8 Eos # (Auto) 0.1 [...] Soria MD 12/25/24 1024 Signed By: 12/25/24 [facility]5 [facility]03-12-2025 [place] [address] Orthopedic Progress Note Signed Patient: Delano Oliver MR#: [id number] : 1940 Acct:[id number] Age/Sex: 84 / M Adm Date: 5 Loc: Room: [address] [place] [address] Type: ADM IN Attending Dr: Emile Reynolds [...] % (Auto) 89.8 Lymph % (Auto) 3.3 [place] % (Auto) 6.6 Eos % (Auto) 0.1 Baso % (Auto) 0.2 Nucleat RBC Rel Count 0.0 Neut # (Auto) 11.3 H Lymph # (Auto) 0.4 L [place] # (Auto) 0.8 Eos # (Auto) 0.0 [...] 7.7 Neut % (Auto) Lymph % (Auto) [place] % (Auto) Eos % (Auto) Baso % (Auto) Nucleat RBC Rel Count Neut # (Auto) Lymph # (Auto) [place] # (Auto) Eos # (Auto) Baso # [...] MD 12/24/24 1119 Signed By: 12/25/24 1015 [facility]03-11-2025 Consult note Author Zahida Flowers [facility] HospitalNote Date/TimeMarch 2024 3:48[place] [address] Nephrology Consult Note Signed Patient: Delano Oliver MR#: [id number] : 1940 Acct:[id number] Age/Sex: 84 / M Adm Date: 5 Loc: Room: [address] [place] [address] Type: ADM IN Attending Dr: Emile Reynolds [...] Hereported that he has CKD and follows [facility] for CKD care. He reported longstanding [...] polydipsia Dermatological: denies any itching or rash [facility] Medical History (Updated 12/24/24 @ 15:28 by [...] Allergy (Unknown, Verified 12/19/24 08:50) Unknown Reaction Pxvjqyt-MAR-XfU Reductase Inhibitor (Xpbahnl-Lfh-Lqm Reductase Inhibitor) Allergy (Unknown, Verified 12/19/24 08:50) [...] 100 Mg Tablet) 100 mg PO DAILY [facility] Stop: 12/22/25 08:59 Last Admin: 12/24/24 08:37 Dose: 100 mg Amiodarone HCl (Amiodarone 200 Mg Tablet) 200 mg PO DAILY [facility] Stop: 12/22/25 08:59 Last Admin: 12/24/24 08:37 Dose: 200 mg Amlodipine Besylate (Amlodipine 10 Mg Tablet) 10 mg PO DAILY [facility] Stop: 12/22/25 08:59 Last Admin: 12/24/24 08:38 Dose: Not Given Amoxicillin/Clavulanate Potassium (Amoxicillin/Clav 500-125 Mg Tablet) 1 tab POBID [facility] Stop: 12/28/24 20:59 Ascorbic Acid (Ascorbic Acid 500 Mg Tablet) 500 mg PO DAILY [facility] Stop: 12/23/25 08:59 Last Admin: 12/24/24 08:37 Dose: 500 mg Azithromycin (Azithromycin 250 Mg Tablet) 500 mg PO Q24H [facility] Stop: 12/28/24 23:00 Calcium Carbonate (Calcium Carbonate/Vitamin D3 500 Mg/200 Unit Tablet) 1 tab PO TID.WITH.MEALS [facility] Stop: 12/22/25 11:59 Last Admin: 12/24/24 11:36 Dose: 1 tab Diphenhydramine HCl (Diphenhydramine 25 Mg Capsule) 25 mg PO Q6H PRN PRN Reason: Itching Stop: 12/23/25 13:12 Docusate Sodium (Docusate 100 Mg Capsule) 200 mg PO BID PRN PRN Reason: Constipation Stop: 12/21/25 22:29 Docusate Sodium (Docusate 100 Mg Capsule) 100 mg PO BID [facility] Stop: 12/23/25 20:59 Last Admin: 12/24/24 08:37 Dose: 100 mg Fluticasone/Umeclidinium/Vilanterol (Fluticas/Umeclidin/Vilanter 200-62.5-25 Mcg28 Puff Inhaler *Nf*) 1 puff INHALATION DAILY [facility] Stop: 12/23/25 08:59 Last Admin: 12/24/24 08:38 Dose: 1 puff Furosemide (Furosemide 80 Mg Tablet) 80 mg PO DAILY [facility] Stop: 12/24/25 12:14 Last Admin: 12/24/24 13:35 Dose: Not Given Hydralazine HCl (Hydralazine 20 Mg/Ml Vial) 10 mg IV-PUSH Q4H PRN PRN Reason: if SBP > 185 Stop: 12/21/25 22:29 Hydralazine HCl (Hydralazine 50 Mg Tablet) 100 mg PO TID [facility] Stop: 12/22/25 08:59 Last Admin: 12/24/24 13:35 [...] Ml) 1,000 mls @ 70 mls/hr IV .[id number] [facility] Stop: 12/23/25 00:04 Last Admin: 12/24/24 06:38 Dose: Not Given Isosorbide Dinitrate (Isosorbide Dinitrate 10 Mg Tablet) 10 mg PO TID [facility] Stop: 12/22/25 08:59 Last Admin: 12/24/24 13:35 Dose: Not Given Lidocaine HCl (Lidocaine 1% 50 Ml Vial) 0.1 ml INTRADERMA PREOP PRN PRN Reason: Venipuncture x 1 Dose Magnesium Hydroxide (Magnesium Hydroxide Susp 30 Ml Udc) 30 ml PO DAILY PRN PRN Reason: Constipation Stop: 12/22/25 11:11 Metoprolol Succinate (Metoprolol Succinate 100 Mg Tab.Er.24h) 100 mg PO DAILY [facility] Stop: 12/22/25 08:59 Last Admin: 12/24/24 08:38 Dose: Not Given Multivitamins (Multivitamin 1 Tab Tablet) 1 tab PO DAILY [facility] Stop: 12/23/25 08:59 Last Admin: 12/24/24 08:37 [...] 17 Gm Powd.Pack) 17 gm PO DAILY [facility] Stop: 12/22/25 08:59 Last Admin: 12/24/24 08:38 Dose: 17 gm Sennosides (Sennosides 8.6 Mg Tablet) 17.2 mg PO BID [facility] Stop: 12/22/25 08:59 Last Admin: 12/24/24 08:37 [...] Skin: No rashes , warm to touch COMMERCIAL CRABBER: Awake,Alert, following simple command Musculoskeletal: No swelling [...] Dominik Hamm M.D.12/23/2024 9:17 PM Dictation Location: [place] [address] Any impression(s) listed above is documentation that was entered by the reading physician into a diagnostic report(s) for Delano Oliver. I have reviewed the report(s) and am [...] mellitus with hyperglycemia: Assessment/Problem Details: He has uxa-lblgrkk-niazbbwbt type 2 diabetes mellitus currently on diet [...] question. Documented By: Zahida Flowers MD 12/24/24 6998 Signed By: <Electronically signed by Zahida Flowers MD> 12/24/24 5688 [facility] Work Phone: 1(506) 724-390903-11-2025 Progress note Author Emile Reynolds [facility] HospitalNote Date/TimeMarch 2024 2:[place] [address] Hospitalist Progress Note Signed Patient: Delano Oliver MR#: [id number] : 1940 Acct:[id number] Age/Sex: 84 / M Adm Date: 5 Loc: N Room: [address] [place] [address] Type: ADM IN Attending Dr: Emile Reynolds [...] Allergy (Unknown, Verified 12/19/24 08:50) Unknown Reaction Pgpndys-FPN-WkN Reductase Inhibitor (Yeklbkr-Iuc-Yuc Reductase Inhibitor) Allergy (Unknown, Verified 12/19/24 08:50) [...] Lactated Ringers IV 12/23/25 00:00 Not Given .[id number] [facility] Sodium Chloride 1,000 mls @ 70 mls/hr 12/23/24 00:05 12/24/24 06:38 0.9% Sodium Chloride 1,000 Ml IV 12/23/25 00:04 Not Given .[id number] [facility] Isosorbide Dinitrate 10 mg 12/22/24 09:00 [...] signed by Emile Reynolds DO> 12/24/24 1412 [facility] Work Phone: 1(434) 303-995903-11-2025 [place] [address] Nephrology Consult Note Signed Patient: Delano Oliver MR#: [id number] : 1940 Acct:[id number] Age/Sex: 84 / M Adm Date: 5 Loc: Room: [address] [place] [address] Type: ADM IN Attending Dr: Emile Reynolds [...] Hereported that he has CKD and follows [facility] for CKD care. He reported longstanding [...] polydipsia Dermatological: denies any itching or rash [facility] Medical History (Updated 12/24/24 @ 15:28 by [...] Allergy (Unknown, Verified 12/19/24 08:50) Unknown Reaction Upcztxj-EDZ-RdE Reductase Inhibitor (Jspuosc-Fvz-Tlr Reductase Inhibitor) Allergy (Unknown, Verified 12/19/24 08:50) [...] 1 tab POBID [facility] Stop: 12/28/24 20:59 Ascorbic Acid (Ascorbic Acid [...] 80 Mg Tablet) 80 mg PO DAILY [facility] Stop: 12/24/25 12:14 Last Admin: 12/24/24 13:35 Dose: Not Given Hydralazine HCl (Hydralazine 20 Mg/Ml Vial) 10 mg IV-PUSH Q4H PRN PRN Reason: if SBP > 185 Stop: 12/21/25 22:29 Hydralazine HCl (Hydralazine 50 Mg Tablet) 100 mg PO TID [facility] Stop: 12/22/25 08:59 Last Admin: 12/24/24 13:35 [...] Ml) 1,000 mls @ 70 mls/hr IV .[id number] [facility] Stop: 12/23/25 00:04 Last Admin: 12/24/24 06:38 Dose: Not Given Isosorbide Dinitrate (Isosorbide Dinitrate 10 Mg Tablet) 10 mg PO TID [facility] Stop: 12/22/25 08:59 Last Admin: 12/24/24 13:35 Dose: Not Given Lidocaine HCl (Lidocaine 1% 50 Ml Vial) 0.1 ml INTRADERMA PREOP PRN PRN Reason: Venipuncture x 1 Dose Magnesium Hydroxide (Magnesium Hydroxide Susp 30 Ml Udc) 30 ml PO DAILY PRN PRN Reason: Constipation Stop: 12/22/25 11:11 Metoprolol Succinate (Metoprolol Succinate 100 Mg Tab.Er.24h) 100 mg PO DAILY [facility] Stop: 12/22/25 08:59 Last Admin: 12/24/24 08:38 Dose: Not Given Multivitamins (Multivitamin 1 Tab Tablet) 1 tab PO DAILY [facility] Stop: 12/23/25 08:59 Last Admin: 12/24/24 08:37 [...] 17 Gm Powd.Pack) 17 gm PO DAILY [facility] Stop: 12/22/25 08:59 Last Admin: 12/24/24 08:38 Dose: 17 gm Sennosides (Sennosides 8.6 Mg Tablet) 17.2 mg PO BID [facility] Stop: 12/22/25 08:59 Last Admin: 12/24/24 [...] Skin: No rashes , warm to touch COMMERCIAL CRABBER: Awake,Alert, following simple command Musculoskeletal: No swelling [...] Dominik Hamm M.D.12/23/2024 9:17 PM Dictation Location: [place] [address] Any impression(s) listed above is documentation that was entered by the reading physician into a diagnostic report(s) for Delano Oliver. I have reviewed the report(s) and am [...] mellitus with hyperglycemia: Assessment/Problem Details: He has xvb-dwfkepu-uaedimglk type 2 diabetes mellitus currently on diet [...] MD 12/24/24 1515 Signed By: 12/24/24 1548 [facility]03-11-2025 Progress note Author Krysten Bowers [facility] HospitalNote Date/TimeMarch 2024 1:04pmJ[place] [id number] Cardiology Progress Note Signed Patient: Delano Oliver MR#: [id number] : 1940 Acct:[id number] Age/Sex: 84 / M Adm Date: 5 Loc: 4N Room: [address] [place] [address] Type: ADM IN Attending Dr: Emile Reynolds DO Copies to: ~ Date of Service: 12/24/2024 Subjective Interval history: Mr. 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 Prior to the fall, he denied any chest pain, dyspnea, palpitations, lightheadedness or syncope. He follows with cardiology at [facility] and was last seen in October when [...] % (Auto) 89.8 Lymph % (Auto) 3.3 [place] % (Auto) 6.6 Eos % (Auto) 0.1 Baso % (Auto) 0.2 Nucleat RBC Rel Count 0.0 Neut # (Auto) 11.3 H Lymph # (Auto) 0.4 L [place] # (Auto) 0.8 Eos # (Auto) 0.0 [...] 7.7 Neut % (Auto) Lymph % (Auto) [place] % (Auto) Eos % (Auto) Baso % (Auto) Nucleat RBC Rel Count Neut # (Auto) Lymph # (Auto) [place] # (Auto) Eos # (Auto) Baso # [...] diabetes mellitus with hyperglycemia: Qualifiers: Diabetes mellitus watermelon inspector insulin use: without watermelon inspector use Qualified Code(s): E11.65 - Type 2 [...] needed. - Follow up with cardiology at [facility]. Documented By: Krysten Bowers MD 12/24/24 1255 Signed By: <Electronically signed by Krysten Bowers MD> 12/24/24 1300 [facility] Work Phone: 1(528) 822-232903-11-2025 [place] [address] Hospitalist Progress Note Signed Patient: Delano Oliver MR#: [id number] : 1940 Acct:[id number] Age/Sex: 84 / M Adm Date: 5 Loc: Room: [address] [place] [address] Type: ADM IN Attending Dr: Emile Reynolds [...] Allergy (Unknown, Verified 12/19/24 08:50) Unknown Reaction Zwjvbdo-CPN-PjO Reductase Inhibitor (Asobinr-Nrv-Xzo Reductase Inhibitor) Allergy (Unknown, Verified 12/19/24 08:50) [...] Lactated Ringers IV 12/23/25 00:00 Not Given .[id number] [facility] Sodium Chloride 1,000 mls @ 70 mls/hr 12/23/24 00:05 12/24/24 06:38 0.9% Sodium Chloride 1,000 Ml IV 12/23/25 00:04 Not Given .[id number] [facility] Isosorbide Dinitrate 10 mg 12/22/24 09:00 [...] DO 12/24/24 1407 Signed By: 12/24/24 1412 [facility]03-11-2025 [place] [address] Cardiology Progress Note Signed Patient: Delano Oliver MR#: [id number] : 1940 Acct:[id number] Age/Sex: 84 / M Adm Date: 5 Loc: Room: [address] [place] [address] Type: ADM IN Attending Dr: Emile Reynolds DO Copies to: ~ Date of Service: 12/24/2024 Subjective Interval history: Mr. 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 Prior to the fall, he denied any chest pain, dyspnea, palpitations, lightheadedness or syncope. He follows with cardiology at [facility] and was last seen in October when [...] % (Auto) 89.8 Lymph % (Auto) 3.3 Ll[place] % (Auto) 6.6 Eos % (Auto) 0.1 Baso % (Auto) 0.2 Nucleat RBC Rel Count 0.0 Neut # (Auto) 11.3 H Lymph # (Auto) 0.4 L [place] # (Auto) 0.8 Eos # (Auto) 0.0 [...] 7.7 Neut % (Auto) Lymph % (Auto) [place] % (Auto) Eos % (Auto) Baso % (Auto) Nucleat RBC Rel Count Neut # (Auto) Lymph # (Auto) [place] # (Auto) Eos # (Auto) Baso # [...] diabetes mellitus with hyperglycemia: Qualifiers: Diabetes mellitus residential insulin use: without residential use Qualified Code(s): E11.65 - Type 2 [...] needed. - Follow up with cardiology at [facility]. Documented By: Krysten Bowers MD 12/24/24 1255 Signed By: 12/24/24 1304 [facility]03-10-2025 Progress note Author Emile Reynolds [facility] HospitalNote Date/TimeMarch 2024 4:[place] [address] Hospitalist Progress Note Signed Patient: Delano Oliver MR#: [id number] : 1940 Acct:[id number] Age/Sex: 84 / M Adm Date: 5 Loc: 4N Room: 3K4558-4 Type: ADM IN Attending Dr: Emile Reynolds [...] Allergy (Unknown, Verified 12/19/24 08:50) Unknown Reaction Ljjtmrv-AVR-BfN Reductase Inhibitor (Gsdnkne-Wzc-Bvn Reductase Inhibitor) Allergy (Unknown, Verified 12/19/24 08:50) Muscle Pain tramadol Allergy (Verified 12/19/24 08:50) Itching niacin ER Allergy (Uncoded 08/22/24 08:31) itching Active Meds: Active Medications Generic Name Dose Route Start Last Admin Trade Name Marnie PRN Reason Stop Dose Admin Acetaminophen 650 [...] Tablet PO 12/22/25 08:59 Not Given DAILY [facility] Amiodarone HCl 200 mg 12/22/24 09:00 12/23/24 08:47 Amiodarone 200 Mg Tablet PO 12/22/25 08:59 Not Given DAILY [facility] Amlodipine Besylate 10 mg 12/22/24 09:00 12/23/24 08:48 Amlodipine 10 Mg Tablet PO 12/22/25 08:59 Not Given DAILY [facility] Ascorbic Acid 500 mg 12/23/24 09:00 12/23/24 08:48 Ascorbic Acid 500 Mg Tablet PO 12/23/25 08:59 Not Given DAILY [facility] Calcium Carbonate 1 tab 12/22/24 12:00 12/23/24 [...] Lactated Ringers IV 12/23/25 00:00 75 mls/hr .[id number] FERN Administration Sodium Chloride 1,000 mls @ 70 mls/hr 12/23/24 00:05 12/23/24 01:07 0.9% Sodium Chloride 1,000 Ml IV 12/23/25 00:04 Not Given .[id number] FERN Lactated Ringer's 1,000 mls @ 20 mls/hr 12/23/24 08:00 12/23/24 13:35 Lactated Ringers IV 12/24/24 07:59 20 mls/hr .Q24H ONE Infusion Ampicillin Sodium/Sulbactam Sodium 1.5 gm in 100 mls @ 200 mls/hr 12/23/24 11:30 12/23/24 12:14 Unasyn IV 200 mls/hr Q12H FERN Administration Azithromycin 500 mg in 250 mls @ 250 mls/hr 12/23/24 15:30 Zithromax IV Q24H [facility] Isosorbide Dinitrate 10 mg 12/22/24 09:00 12/23/24 [...] Tablet PO 12/23/25 08:59 Not Given DAILY [facility] Ondansetron HCl 4 mg 12/22/24 11:12 12/23/24 [...] Powd.Pack PO 12/22/25 08:59 Not Given DAILY [facility] Sennosides 17.2 mg 12/22/24 09:00 12/23/24 08:48 Sennosides 8.6 Mg Tablet PO 12/22/25 08:59 Not Given BID [facility] Sodium Chloride 0 ml 12/22/24 11:12 Sodium [...] code Documented By: Emile Reynolds DO 12/23/24 1601 Signed By: <Electronically signed by Emile Reynolds DO> 12/23/24 [facility] Work Phone: 1(382) 490-189703-10-2025 [place] [address] Hospitalist Progress Note Signed Patient: Delano Oliver MR#: [id number] : 1940 Acct:[id number] Age/Sex: 84 / M Adm Date: 5 Loc: Room: [address] [place] [address] Type: ADM IN Attending Dr: Emile Reynolds [...] 105/61 88 L Simple Mask 68 12/23/24 14:12/23/24 14:12/23/24 14:12/23/24 14:12/23/24 14:12/23/24 14:12/23/24 14: FiO2 2 12/22/24 [...] Allergy (Unknown, Verified 12/19/24 08:50) Unknown Reaction Gtqrnjg-LGM-BtO Reductase Inhibitor (Cpspwqh-Ljn-Cjn Reductase Inhibitor) Allergy (Unknown, Verified 12/19/24 08:50) [...] Lactated Ringers IV 12/23/25 00:00 75 mls/hr .[id number] FERN Administration Sodium Chloride 1,000 mls @ 70 mls/hr 12/23/24 00:05 12/23/24 01:07 0.9% Sodium Chloride 1,000 Ml IV 12/23/25 00:04 Not Given .[id number] FERN Lactated Ringer's 1,000 mls @ 20 [...] Tablet PO 12/23/25 08:59 Not Given DAILY [facility] Ondansetron HCl 4 mg 12/22/24 11:12 12/23/24 [...] Powd.Pack PO 12/22/25 08:59 Not Given DAILY [facility] Sennosides 17.2 mg 12/22/24 09:00 12/23/24 08:48 Sennosides 8.6 Mg Tablet PO 12/22/25 08:59 Not Given BID [facility] Sodium Chloride 0 ml 12/22/24 11:12 Sodium [...] DO 12/23/24 1609 Signed By: 12/23/24 1615 [facility]03-10-2025 Reason for visit Narrative* Rehabilitation - Outpatient (Routine) - AuthorizedSpecialtyDiagnoses / ProceduresReferred By ContactReferred To ContactPhysical Therapy Diagnoses Right Hip Arthroplasty / Bone graft proximal femur, dos 12/23/24 / Left trochanteric Bursitis Procedures CA PHYSICAL THERAPY EVALUATION LOW COMPLEX 20 MINS CA OFFICE/OUTPATIENT NEW HIGH MDM 60 MINUTES Walker Soria MD [address] [place] [address] Phone: tel: fax: Kenny Aldana, PT [address] [address] Phone: tel: fax: Referral IDStatusReasonStart DateExpiration DateVisits RequestedVisits [id number]/4/202512/ [id number] Reason for visit Narrative* Rehabilitation - Outpatient (Routine) - AuthorizedSpecialtyDiagnoses / ProceduresReferred By ContactReferred To ContactPhysical Therapy Diagnoses Right Hip Arthroplasty / Bone graft proximal femur, dos 12/23/24 / Left trochanteric Bursitis Procedures CA PHYSICAL THERAPY EVALUATION LOW COMPLEX 20 MINS CA OFFICE/OUTPATIENT NEW HIGH MDM 60 MINUTES Walker Soria MD [address] [place] [address] Phone: tel: fax: Kenny Aldana, PT [address] [address] Phone: tel: fax: Referral IDStatusReasonStart DateExpiration DateVisits RequestedVisits [id number]/4/202512/31/20252030 [facility] [id number] Reason for visit Narrative* Rehabilitation - Outpatient (Routine) - AuthorizedSpecialtyDiagnoses / ProceduresReferred By ContactReferred To ContactPhysical Therapy Diagnoses Right Hip Arthroplasty / Bone graft proximal femur, dos 12/23/24 / Left trochanteric Bursitis Procedures CA PHYSICAL THERAPY EVALUATION LOW COMPLEX 20 MINS CA OFFICE/OUTPATIENT NEW HIGH MDM 60 MINUTES Walker Soria MD [address] [place] [address] Phone: tel: fax: Kenny Aldana, PT [address] [address] Phone: tel: fax: Referral IDStatusReasonPort Ewen DateExpiration DateVisits RequestedVisits [id number]/4/202512/31/20252035 [facility] [id number] History and physical note Author Sudha Sood [facility] HospitalNote Date/TimeMarch 2024 7:[address] [address] Hospitalist H&P Signed Patient: Delano Oliver MR#: [id number] : 1940 Acct:[id number] Age/Sex: 84 / M Adm Date: 5 Loc: 4N Room: [address] [place] [address] Type: ADM IN Attending Dr: Jaye Jorgensen [...] disease withbaseline creatinine 2.7 and following with clinic scheduler. 10 systems are reviewed and are negative [...] Previous records in the computer system reviewed [facility] Medical History Screening PSA (prostate specific antigen) [...] Allergy (Unknown, Verified 12/19/24 08:50) Unknown Reaction Iqoewjm-AOF-JuA Reductase Inhibitor (Orbglqf-Cme-Efp Reductase Inhibitor) Allergy (Unknown, Verified 12/19/24 08:50) [...] 3 Documented By: Sudha Sood MD 12/21/24 1832 Signed By: <Electronically signed by Sudha Sood MD> 12/23/24 0776 [facility] Work Phone: 1(608) 241-714903-10-2025 [place] [address] Hospitalist H&P Signed Patient: Delano Oliver MR#: [id number] : 1940 Acct:[id number] Age/Sex: 84 / M Adm Date: 5 Loc: 4N Room: [address] [place] [address] Type: ADM IN Attending Dr: Jaye Jorgensen [...] disease withbaseline creatinine 2.7 and following with clinic scheduler. 10 systems are reviewed and are negative [...] Previous records in the computer system reviewed [facility] Medical History Screening PSA (prostate specific antigen) [...] Allergy (Unknown, Verified 12/19/24 08:50) Unknown Reaction Nstjrte-LMO-EbE Reductase Inhibitor (Pcrqnex-Zdc-Qlz Reductase Inhibitor) Allergy (Unknown, Verified 12/19/24 08:50) [...] See Rx Instructions .Route .COMPLEX #90 tabs 12/31/24 [Rx Confirmed 12/21/24] amiodarone 200 mg tablet [...] days): 3 Documented By: Sudha Sood MD 12/21/242354 Signed By: 12/23/24 0747 [facility]03-09-2025 Progress note Author Jaye Jorgensen [facility] HospitalNote Date/TimeMarch 2024 8:21pm[place] [address] Hospitalist Progress Note Signed Patient: Delano Oliver MR#: [id number] : 1940 Acct:[id number] Age/Sex: 84 / M Adm Date: 5 Loc: 4N Room: 2C1823-9 Type: ADM IN Attending Dr: Jaye Jorgensen [...] Allergy (Unknown, Verified 12/19/24 08:50) Unknown Reaction Eamdfqm-WUN-KbK Reductase Inhibitor (Ebvvwgl-Ocy-Xwv Reductase Inhibitor) Allergy (Unknown, Verified 12/19/24 08:50) [...] 12/23/24 00:00 Lactated Ringers IV 12/23/25 00:00 .[id number] FERN Isosorbide Dinitrate 10 mg 12/22/24 09:00 [...] 1 Tab Tablet PO 12/23/25 08:59 DAILY [facility] Ondansetron HCl 4 mg 12/22/24 11:12 Ondansetron [...] Powd.Pack PO 12/22/25 08:59 17 gm DAILY [facility] Administration Sennosides 17.2 mg 12/22/24 09:00 12/22/24 10:50 Sennosides 8.6 Mg Tablet PO 12/22/25 08:59 Not Given BID FERN Sodium Chloride 0 ml 12/22/24 11:12 Sodium Chloride 0.9 % 10 Ml Syringe IV-PUSH 12/22/25 11:11 PRN PRN Flush A&P - Hospitalist Assessment/Plan (1) Femoral neck fracture: Plan 84M PAF, NICM, ICD, HTN, DM ,CKD, HFrEF presented with mechanical fall to [facility] and transferred for right femoral neck fracture Right hip fracture Pain control Orthopedic was consulted, recommendation appreciated. For possible surgical treatment 12/23 NICM Cardiology was consulted, recommendation appreciated. CKD Cr at baseline Documented By: Jaye Jorgensen MD 12/22/241658 Signed By: <Electronically signed by Jaye Jorgensen MD> 12/22/242020 [facility] Work Phone: 1(322) 370-733203-09-2025 [place]Jennifer [place] [id number] Hospitalist Progress Note Signed Patient: Delano Oliver MR#: [id number] : 1940 Acct:[id number] Age/Sex: 84 / M Adm Date: 5 Loc: 4N Room: [address] [place] [address] Type: ADM IN Attending Dr: Jaye Jorgensen [...] Allergy (Unknown, Verified 12/19/24 08:50) Unknown Reaction Wnnjllx-YOZ-WyI Reductase Inhibitor (Xfrxdav-Src-Aso Reductase Inhibitor) Allergy (Unknown, Verified 12/19/24 08:50) [...] 12/23/24 00:00 Lactated Ringers IV 12/23/25 00:00 .[id number] FERN Isosorbide Dinitrate 10 mg 12/22/24 09:00 [...] 1 Tab Tablet PO 12/23/25 08:59 DAILY [facility] Ondansetron HCl 4 mg 12/22/24 11:12 Ondansetron [...] ,CKD, HFrEF presented with mechanical fall to [facility] and transferred for right femoral neck fracture Right hip fracture Pain control Orthopedic was consulted, recommendation appreciated. For possible surgical treatment 12/23 NICM Cardiology was consulted, recommendation appreciated. CKD Cr at baseline Documented By: Jaye Jorgensen MD 12/22/241658 Signed By: 12/22/242020 [facility]03-09-2025 Consult note Author Krysten Bowers [facility] HospitalNote Date/TimeMarch 2024 3:47pm[place] [address] Cardiology Consult Note Signed Patient: Delano Oliver MR#: [id number] : 1940 Acct:[id number] Age/Sex: 84 / M Adm Date: 5 Loc: 4N Room: [address] [place] [address] Type: ADM IN Attending Dr: Jaye Jorgensen MD Copies to: DO Krysten Lauren MD Marwan Wassouf, MD~ Cardiology HPI History of Present Illness Consult Date: 12/22/24 HPI: Mr. 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 Prior to the fall, he denied any chest pain, dyspnea, palpitations, lightheadedness or syncope. He follows with cardiology at [facility] and was last seen in October when [...] dilatation, biatrial enlargement, RVSP of 49 mmHg. [facility] Medical History Screening PSA (prostate specific antigen) [...] 10/2024 Obstructive sleep apnea Nonischemic dilated cardiomyopathy [facility]: nonobstructive coronary disease - 2016 s/p ICD [...] Allergy (Unknown, Verified 12/19/24 08:50) Unknown Reaction Izmmnmb-NTT-TgB Reductase Inhibitor (Xvkbwwb-Vmt-Moy Reductase Inhibitor) Allergy (Unknown, Verified 12/19/24 08:50) [...] Lymph # (Auto) 0.8 L (1.00-4.8) x10E3/uL [place] # (Auto) 0.9 H (0.0-0.8) x10E3/uL Eos [...] diabetes mellitus with hyperglycemia: Qualifiers: Diabetes mellitus residential insulin use: without watermelon inspector use Qualified Code(s): E11.65 - Type 2 [...] <Electronically signed by Krysten Bowers MD> 12/22/24 1547 [facility] Work Phone: 1(744) 432-781603-09-2025 [place] [address] Cardiology Consult Note Signed Patient: Delano Oliver MR#: [id number] : 1940 Acct:[id number] Age/Sex: 84 / M Adm Date: 5 Loc: 4N Room: 6I1601-6 Type: ADM IN Attending Dr: Jaye Jorgensen MD Copies to: DO Krysten Lauren MD Marwan Wassouf, MD~ Cardiology HPI History of Present Illness Consult Date: 12/22/24 HPI: Mr. Oliver is a 84 year old male With past medical history significant for atrial flutter status post ablation, paroxysmal A-fib status post cardioversion in October 2024, nonischemic dilated cardiomyopathy ([facility] 2016 with nonobstructive disease), status post BiV ICD May 2023, hypertension, hyperl ipidemia, DM2, CKD stage IV who presented after sustaining a fall and was found to have a femur fracture. Prior to the fall, he denied any chest pain, dyspnea, palpitations, lightheadedness or syncope. He follows with cardiology at [facility] and was last seen in October when [...] dilatation, biatrial enlargement, RVSP of 49 mmHg. [facility] Medical History Screening PSA (prostate specific antigen) [...] 10/2024 Obstructive sleep apnea Nonischemic dilated cardiomyopathy [facility]: nonobstructive coronary disease - 2016 s/p ICD [...] Allergy (Unknown, Verified 12/19/24 08:50) Unknown Reaction Jedxjwl-TNW-XaJ Reductase Inhibitor (Nscllor-Bpo-Isd Reductase Inhibitor) Allergy (Unknown, Verified 12/19/24 08:50) [...] Lymph # (Auto) 0.8 L (1.00-4.8) x10E3/uL [place] # (Auto) 0.9 H (0.0-0.8) x10E3/uL Eos [...] diabetes mellitus with hyperglycemia: Qualifiers: Diabetes mellitus residential insulin use: without watermelon inspector use Qualified Code(s): E11.65 - Type 2 [...] MD 12/22/24 1538 Signed By: 12/22/24 1547 [facility]03-09-2025 Evaluation note* Diagnosis Onset Date Resolution Status Admit Date Chronic HFrEF (heart failure with reduce d ejection fraction) acuteMarch 2024 10:13pmFemoral neck fractureacuteMarch 2024 10:13pm A-fibinactiveSt. [facility] 2024 10:13pmAcute kidney injury superimposed on CKD inactiveDecch 2024 10:13pmAcute on chronic anemiainactiveSt. [facility] Hospital 2024 10:13pmAspiration pneumoniainactiveSt. [facility] 2024 10:13pmCoronary artery diseaseinactiveSt. [facility] 2024 10:13pmImpaired mobility and activities of daily livinginactiveSt. [facility] Hospital 2024 10:13pmMucopurulent chronic bronchitisinactive December 21, 2024 10:13pmObstructive sleep apneainactiveSt. [facility] Hospital 2024 10:13pm PacemakerinactiveSt. [facility] Hospital 2024 10:13pmParoxysmal atrial fibrillationinactive December 21, 2024 10:13pmPrimary hypertensioninactiveSt. [facility] 2024 10:13pm Pulmonary hypertensioninactiveSt. [facility] 2024 10:13pmType 2 diabetes mellitus with hyperglycemiainactiveSt. [facility] Hospital 2024 10:13pmHypertensive chronic kidney disease with stage 1 through stage 4 chronic kideletedRobert [facility] [place] 20[facility] 10:13pm Stage 4 chronic kidney diseasedeletedSt. Charles Hospital 2024 10:13pmChronic HFrEF (heart failure with reduced ejection fraction)acuteRobert Wood Johnson [facility] [place] 2024 2:06pmFemoral neck fractureacuteMarch 2024 2:06pmHypercholesteremiaacuteSt. [facility] Hospital 2024 2:06pmIron deficiency anemiaacuteRobert Wood [facility] [place] 2024 2:06pmNonischemic dilated cardiomyopathyacuteRobert Wood [facility] [place] 2024 2:06pmPositive fecal occult blood testacute December 27, 2024 2:06pmA-fibinactiveSt. [facility] Hospital 2024 2:06pmAcute kidney injury superimposed on CKDinactiveSt. [facility] 2024 2:06pmAcute on chronic anemia inactiveRobert Wood [facility] [place] 2024 2:06pmAspiration pneumoniainactiveSt. [facility] 2024 2:06pmCoronary artery diseaseinactiveSt. [facility] 2024 2:06pmImpaired mobility and activities of daily livinginactiveSt. [facility] Hospital 2024 2:06pmMalignant neoplasm of right coloninactiveSt. [facility] 2024 2:06pmMucopurulent chronic bronchitis inactiveSt. [facility] 2024 2:06pmParoxysmal atrial fibrillationinactiveSt. [facility] 2024 2:06pmType 2 diabetes mellitus with hyperglycemiainactiveSt. [facility] Hospital 2024 2:06pmHypertensive chronic kidney disease with stage 1 through stage 4 chronic kideletedSt. [facility] Hospital 2024 2:06pmStage 4 chronic kidney diseasedeletedSt. [facility] Hospital 2024 2:06pmFemoral neck fractureacuteApril 2024 9:53amStatus post hemiarthroplasty of right hipacuteApril 2024 9:53amAnemia of renal disease acuteApril 2024 10:53amChronic HFrEF (heart failure with reduced ejection fraction)acuteApril 2024 10:53amHyperlipidemia type IIacuteApril 2024 10:53amSecondary hyperparathyroidismacuteApril 2024 10:53amType 2 diabetes mellitus with diabetic chronic kidney diseaseacuteApril 2024 10:53am Hypertensive chronic kidney disease with stage 1 through stage 4 chronic ki deletedApril 2024 10:53amStage 4 chronic kidney diseasedeletedApril 2024 10:53amAcute blood loss anemiaacuteApril 2024 1:59pmChronic bronchitis, simpleacuteApril 2024 1:59pmChronic HFrEF (heart failure with reduced ejection fraction)acuteApril 2024 1:59pmChronic kidney disease acuteApril 2024 1:59pmFemoral neck fractureacuteApril 2024 1:59pm Hypotension after procedureacuteApr2024 1:59pmHypothyroidism due to medicationacuteApril 2024 1:59pmNonischemic dilated cardiomyopathyacute [place] 2024 1:59pmFemoral neck fractureacuteMay 2024 11:18amStatus post hemiarthroplasty of right hipacuteMay 2024 11:18amTrochanteric bursitis, left hipacuteMay 2024 11:18amColon cancerdeletedMay 2024 1:52pm [facility] Work Phone: 1(192) 765-311603-06-2025 Evaluation note* Diagnosis Onset Date Resolution Status Admit Date Chronic bronchitis, simple acuteMarch 2024 8:49amChronic HFrEF (heart failure with reduced ejection fraction)acuteMarch 2024 8:49amColon canceracuteMarch 2024 8:49am Hypothyroidism due to medicationacuteMarch 2024 8:49amNonischemic dilated cardiomyopathyacuteMarch 2024 8:49amObstructive sleep apneaacuteMarch 2024 8:49amParoxysmal atrial fibrillationacuteMarch 2024 8:49amPrimary hypertensionacuteMarch 2024 8:49amStage 4 chronic kidney diseaseacuteMarch 2024 8:49amThyrotoxicosisacuteMarch 2024 8:49amType 2 diabetes mellitus with hyperglycemiaacuteMarch 2024 8:49amMedicare annual wellness visit, subsequentnoneactiveMarch 2024 8:49amScreening PSA (prostate specific antigen)noneactiveMar 2024 8:49amA-fibacuteMarch 2024 10:13pmAcute kidney injury superimposed on CKDacuteMarch 2024 10:13pmAcute on chronic anemiaacuteMarch 2024 10:13pmAspiration pneumoniaacuteMarch 2024 10:13pmChronic HFrEF (heart failure with reduced ejection fraction)acute December 21, 2024 10:13pmCoronary artery diseaseacuteMarch 2024 10:13pm Femoral neck fractureacuteMar 2024 10:13pmHypertensive chronic kidney disease with stage 1 through stage 4 chronic kiacuteMar 2024 10:13pm Impaired mobility and activities of daily livingacuteMar 2024 10:13pm Mucopurulent chronic bronchitisacuteMar 2024 10:13pmObstructive sleep apneaacuteDec 2024 10:13pmPacemakeracuteMar 2024 10:13pmParoxysmal atrial fibrillationacuteSt. [facility] Hospital 2024 10:13pmPrimary hypertensionacuteSt. [facility] Hospital 2024 10:13pmPulmonary hypertensionacuteSt. [facility] Hospital 2024 10:13pmStage 4 chronic kidney diseaseacuteSt. [facility] Hospital 2024 10:13pmType 2 diabetes mellitus with hyperglycemiaacuteDecember 21, 2024 10:13pm [facility] Work Phone: 1(147) 727-848203-06-2025 Evaluation note* Diagnosis Onset Date Resolution Status Admit Date Chronic bronchitis, simple acuteMarch 2024 8:49amColon canceracuteMarch 2024 8:49amHypothyroidism due to medicationacuteMarch 2024 8:49amNonischemic dilated cardiomyopathy acuteMarch 2024 8:49amThyrotoxicosisacuteMarch 2024 8:49amChronic HFrEF (heart failure with reduced ejection fraction)inactiveDecember 19, 2024 8:49amObstructive sleep apneainactiveMarch 2024 8:49amParoxysmal atrial fibrillationinactiveMar 2024 8:49amPrimary hypertensioninactiveMarch 2024 8:49amStage 4 chronic kidney diseaseinactiveMar 2024 8:49amType 2 diabetes mellitus with hyperglycemiainactiveSt. [facility] Hospital 2024 8:49amMedicare annual wellness visit, subsequentnoneactiveMar 2024 8:49amScreening PSA (prostate specific antigen)noneactiveMar 2024 8:49amFemoral neck fracture acuteMarch 2024 10:13pmA-fibinactiveSt. [facility] Hospital 2024 10:13pmAcute kidney injury superimposed on CKDinactiveRobert Wood [facility] [place] 2024 10:13pmAcute on chronic anemia inactiveSt. [facility] 2024 10:13pmAspiration pneumoniainactiveSt. [facility] 2024 10:13pmChronic HFrEF (heart failure with reduced ejection fraction)inactiveSt. [facility] 2024 10:13pmCoronary artery diseaseinactiveSt. [facility] 2024 10:13pm Hypertensive chronic kidney disease with stage 1 through stage 4 chronic ki inactiveSt. Charles Hospital 2024 10:13pmImpaired mobility and activities of daily living inactiveSt. [facility] 2024 10:13pmMucopurulent chronic bronchitisinactiveSt. [facility] 2024 10:13pmObstructive sleep apneainactiveSt. [facility] 2024 10:13pmPacemaker inactiveSt. [facility] 2024 10:13pmParoxysmal atrial fibrillationinactiveSt. [facility] 2024 10:13pmPrimary hypertensioninactiveSt. [facility] 2024 10:13pmPulmonary hypertensioninactiveSt. [facility] 2024 10:13pmStage 4 chronic kidney disease inactiveSt. [facility] 2024 10:13pmType 2 diabetes mellitus with hyperglycemia inactiveSt. [facility] Hospital 2024 10:13pmFemoral neck fractureacuteMarch 2024 2:06pm HypercholesteremiaacuteMarch 2024 2:06pmIron deficiency anemiaacuteMarch 2024 2:06pmMalignant neoplasm of right colonacuteMarch 2024 2:06pm Nonischemic dilated cardiomyopathyacuteMarch 2024 2:06pmPositive fecal occult blood testacuteMarch 2024 2:06pmA-fibinactiveMar 2024 2:06pmAcute kidney injury superimposed on CKDinactiveMarch 2024 2:06pm Acute on chronic anemiainactiveMar 2024 2:06pmAspiration pneumonia inactiveMarch 2024 2:06pmChronic HFrEF (heart failure with reduced ejection fraction)inactiveMarch 2024 2:06pmCoronary artery diseaseinactive December 27, 2024 2:06pmHypertensive chronic kidney disease with stage 1 through stage 4 chronic kiinactiveMarch 2024 2:06pmImpaired mobility and activities of daily livinginactiveMarch 2024 2:06pmMucopurulent chronic bronchitisinactiveMarch 2024 2:06pmParoxysmal atrial fibrillationinactive December 27, 2024 2:06pmStage 4 chronic kidney diseaseinactiveMarch 2024 2:06pmType 2 diabetes mellitus with hyperglycemiainactiveMarch 2024 2:06pm [facility] Work Phone: 1([phone]) 662-130503-06-2025 Evaluation note* Diagnosis Onset Date Resolution Status Admit Date Chronic bronchitis, simple acuteMarch 2024 8:49amColon canceracuteMarch 2024 8:49amHypothyroidism due to medicationacuteMarch 2024 8:49amNonischemic dilated cardiomyopathy acuteMarch 2024 8:49amThyrotoxicosisacuteMarch 2024 8:49amChronic HFrEF (heart failure with reduced ejection fraction)inactiveMarch 2024 8:49amObstructive sleep apneainactiveMarch 2024 8:49amParoxysmal atrial fibrillationinactiveMarch 2024 8:49amPrimary hypertensioninactiveMarch 2024 8:49amStage 4 chronic kidney diseaseinactiveMarch 2024 8:49amType 2 diabetes mellitus with hyperglycemiainactiveMarch 2024 8:49amMedicare annual wellness visit, subsequentnoneactiveMarch 2024 8:49amScreening PSA (prostate specific antigen)noneactiveMarch 2024 8:49amFemoral neck fracture acuteMarch 2024 10:13pmA-fibinactiveMarch 2024 10:13pmAcute kidney injury superimposed on CKDinactiveMarch 2024 10:13pmAcute on chronic anemia inactive[facility] 20[facility] 10:13pmAspiration pneumoniainaSelect [facility] 2024 10:13pmChronic HFrEF (heart failure with reduced ejection fraction)inactiveSt. [facility] 2024 10:13pmCoronary artery diseaseinaSelect Medical Specialty [facility], [facility] 2024 10:13pm Hypertensive chronic kidney disease with stage 1 through stage 4 chronic ki [facility] 2024 10:13pmImpaired mobility and activities of daily living inactiveSt. [facility] 2024 10:13pmMucopurulent chronic bronchitisinaSelect [facility] 2024 10:13pmObstructive sleep apneainaSelect Medical [facility]ty [facility] 2024 10:13pmPacemaker inactiveSt. [facility] 2024 10:13pmParoxysmal atrial fibrillationinaSelect [facility] 2024 10:13pmPrimary hypertensioninaSelect [facility] 2024 10:13pmPulmonary hypertensioninaSelect [facility] 2024 10:13pmStage 4 chronic kidney disease inactiveSt. [facility] 2024 10:13pmType 2 diabetes mellitus with hyperglycemia [facility] 2024 10:13pmFemoral neck fractureacuteSt. [facility] Hospital 2024 2:06pm HypercholesteremiaacuteSt. [facility] Hospital 2024 2:06pmIron deficiency anemiaacuteSt. [facility] 2024 2:06pmMalignant neoplasm of right colonacuteSt. [facility] 2024 2:06pm Nonischemic dilated cardiomyopathyacuteSt. [facility] 2024 2:06pmPositive fecal occult blood testacuteSt. [facility] 2024 2:06pmA-fibinaSelect Medical Specialty [facility], [facility] 2024 2:06pmAcute kidney injury superimposed on CKDinactiveSt. [facility] Hospital 2024 2:06pm Acute on chronic anemiainactiveSt. [facility] 2024 2:06pmAspiration pneumonia inactiveSt[facility] 2024 2:06pmChronic HFrEF (heart failure with reduced ejection fraction)inactiveSt. [facility] 2024 2:06pmCoronary artery diseaseinaSelect [facility]ty [facility] [place] 2024 2:06pmHypertensive chronic kidney disease with stage 1 through stage [address] kiinactiveSt[address] [facility] Hospital 2024 2:06pmImpaired mobility and activities of daily livinginaSelect [facility] 2024 2:06pmMucopurulent chronic bronchitisinactiveMarch 2024 2:06pmParoxysmal atrial fibrillationinactive December 27, 2024 2:06pmStage 4 chronic kidney diseaseinactiveMarch 2024 2:06pmType 2 diabetes mellitus with hyperglycemiainactiveMarch 2024 2:06pm Femoral neck fractureacuteApr2024 9:53amStatus post hemiarthroplasty of right hipacuteApril 2024 9:53am [facility] Work Phone: 1([phone]) 367-560003-06-2025 Evaluation note* Diagnosis Onset Date Resolution Status Admit Date Chronic bronchitis, simple acuteMarch 2024 8:49amChronic HFrEF (heart failure with reduced ejection fraction)acuteMarch 2024 8:49amColon canceracuteMarch 2024 8:49am Hypothyroidism due to medicationacuteMarch 2024 8:49amNonischemic dilated cardiomyopathyacuteMarch 2024 8:49amStage 4 chronic kidney diseaseacute December 19, 2024 8:49amThyrotoxicosisacuteMarch 2024 8:49amObstructive sleep apneainactiveMarch 2024 8:49amParoxysmal atrial fibrillationinactiveMarch 2024 8:49amPrimary hypertensioninactiveMarch 2024 8:49amType 2 diabetes mellitus with hyperglycemiainactiveMarch 2024 8:49amMedicare annual wellness visit, subsequentnoneactiveMar 2024 8:49amScreening PSA (prostate specific antigen)noneactiveMarch 2024 8:49amChronic HFrEF (heart failure with reduced ejection fraction)acuteMarch 2024 10:13pmFemoral neck fractureacuteMarch 2024 10:13pmHypertensive chronic kidney disease with stage 1 through stage 4 chronic kiacuteMarch 2024 10:13pmStage 4 chronic kidney diseaseacuteMarch 2024 10:13pmA-fibinactiveMarch 2024 10:13pm Acute kidney injury superimposed on CKDinactiveMarch 2024 10:13pmAcute on chronic anemiainactiveMarch 2024 10:13pmAspiration pneumoniainactiveSt. [facility] 2024 10:13pmCoronary artery diseaseinactiveSt. [facility] 2024 10:13pmImpaired mobility and activities of daily livinginactiveSt. [facility] 2024 10:13pm Mucopurulent chronic bronchitisinactiveSt. [facility] 2024 10:13pmObstructive sleep apneainactiveSt. [facility] Hospital 2024 10:13pmPacemakerinactiveSt. [facility] 2024 10:13pm Paroxysmal atrial fibrillationinactiveSt. [facility] 2024 10:13pmPrimary hypertensioninactiveSt. [facility] 2024 10:13pmPulmonary hypertensioninactiveSt. [facility] 2024 10:13pmType 2 diabetes mellitus with hyperglycemiainaSelect Medical Specialty [facility] 2024 10:13pmChronic HFrEF (heart failure with reduced ejection fraction)acute December 27, 2024 2:06pmFemoral neck fractureacuteMarch 2024 2:06pm HypercholesteremiaacuteSt. [facility] Hospital 2024 2:06pmHypertensive chronic kidney disease with stage 1 through stage 4 chronic kiacuteMarch 2024 2:06pmIron deficiency anemiaacuteMarch 2024 2:06pmNonischemic dilated cardiomyopathy acuteMarch 2024 2:06pmPositive fecal occult blood testacuteMarch 2024 2:06pmStage 4 chronic kidney diseaseacuteMarch 2024 2:06pmA-fib inactiveMarch 2024 2:06pmAcute kidney injury superimposed on CKDinactive December 27, 2024 2:06pmAcute on chronic anemiainactiveMar 2024 2:06pm Aspiration pneumoniainactiveSt. [facility] Hospital 2024 2:06pmCoronary artery disease inactiveMarch 2024 2:06pmImpaired mobility and activities of daily living [facility] [place] [facility] 2:06pmMalignant neoplasm of right coloninactiveMar 2024 2:06pmMucopurulent chronic bronchitisinactiveSt. [facility] 2024 2:06pm Paroxysmal atrial fibrillationinactiveSt. [facility] 2024 2:06pmType 2 diabetes mellitus with hyperglycemiainactiveSt. [facility] Hospital 2024 2:06pmFemoral neck fracture acuteApril 2024 9:53amStatus post hemiarthroplasty of right hipacuteApril 2024 9:53amAnemia of renal diseaseacuteApril 2024 10:53amChronic HFrEF (heart failure with reduced ejection fraction)acuteApril 2024 10:53am Hyperlipidemia type IIacuteApril 2024 10:53amHypertensive chronic kidney disease with stage 1 through stage 4 chronic kiacuteApril 2024 10:53am Secondary hyperparathyroidismacuteApril 2024 10:53amStage 4 chronic kidney diseaseacuteApril 2024 10:53amType 2 diabetes mellitus with diabetic chronic kidney diseaseacuteApril 2024 10:53am [facility] Work Phone: 1(808) 759-941603-06-2025 Evaluation note* Diagnosis Onset Date Resolution Status Admit Date Chronic bronchitis, simple acuteMarch 2024 8:49amChronic HFrEF (heart failure with reduced ejection fraction)acuteMarch 2024 8:49amColon canceracuteMarch 2024 8:49am Hypothyroidism due to medicationacuteMarch 2024 8:49amNonischemic dilated cardiomyopathyacuteMarch 2024 8:49amThyrotoxicosisacuteMarch 2024 8:49amObstructive sleep apneainactiveMarch 2024 8:49amParoxysmal atrial fibrillationinactiveMarch 2024 8:49amPrimary hypertensioninactiveMarch 2024 8:49amType 2 diabetes mellitus with hyperglycemiainactiveMarch 2024 8:49amStage 4 chronic kidney diseasedeletedMarch 2024 8:49amMedicare annual wellness visit, subsequentnoneactiveMarch 2024 8:49amScreening PSA (prostate specific antigen)noneactiveMarch 2024 8:49amChronic HFrEF (heart failure with reduced ejection fraction)acuteMarch 2024 10:13pmFemoral neck fractureacuteMarch 2024 10:13pmA-fibinactiveMarch 2024 10:13pmAcute kidney injury superimposed on CKDinactiveMarch 2024 10:13pmAcute on chronic anemiainactiveMarch 2024 10:13pmAspiration pneumoniainactiveSt. [facility] 2024 10:13pmCoronary artery diseaseinactiveSt. [facility] 2024 10:13pmImpaired mobility and activities of daily livinginaSelect [facility] 2024 10:13pmMucopurulent chronic bronchitisinactiveSt. [facility] 2024 10:13pmObstructive sleep apneainaSelect [facility] [place] 2024 10:13pmPacemakerinactiveSt. [facility] 2024 10:13pmParoxysmal atrial fibrillationinaSelect [facility] 2024 10:13pmPrimary hypertensioninaSelect [facility] 2024 10:13pmPulmonary hypertensioninaSelect [facility] 2024 10:13pmType 2 diabetes mellitus with hyperglycemiainaSelect Medical Specialty [facility] 2024 10:13pmHypertensive chronic kidney disease with stage 1 through stage [address]ideletedSt[address] [facility] Hospital 2024 10:13pmStage 4 chronic kidney diseasedeletedSt. [facility] Hospital 2024 10:13pmChronic HFrEF (heart failure with reduced ejection fraction)[facility] [place] [facility] 2:06pm Femoral neck fractureacuteRobert [facility] [place] 2024 2:06pmHypercholesteremiaacuteSt. [facility] 2024 2:06pmIron deficiency anemiaacuteRobert [facility] [place] 2024 2:06pmNonischemic dilated cardiomyopathyacuteRobert [facility] [place] 2024 2:06pmPositive fecal occult blood testacuteRobert [facility] [place] 2024 2:06pmA-fibinactiveSt. [facility] 2024 2:06pmAcute kidney injury superimposed on CKDinactiveSt. [facility] 2024 2:06pmAcute on chronic anemia inactiveRobert Wood [facility] [place] 2024 2:06pmAspiration pneumoniainactiveSt. [facility] 2024 2:06pmCoronary artery diseaseinactiveSt. [facility] 2024 2:06pmImpaired mobility and activities of daily livinginaSelect Medical [facility] 2024 2:06pmMalignant neoplasm of right coloninactiveSt. [facility] 2024 2:06pmMucopurulent chronic bronchitis inactiveSt. [facility] 2024 2:06pmParoxysmal atrial fibrillationinactiveSt. [facility] 2024 2:06pmType 2 diabetes mellitus with hyperglycemiainactiveSt. [facility] 2024 2:06pmHypertensive chronic kidney disease with stage 1 through stage 4 chronic kideletedMarch 2024 2:06pmStage 4 chronic kidney diseasedeletedMarch 2024 2:06pmFemoral neck fractureacuteApril 2024 9:53amStatus post hemiarthroplasty of right hipacuteApril 2024 9:53amAnemia of renal disease acuteApril 2024 10:53amChronic HFrEF (heart failure with reduced ejection fraction)acuteApril 2024 10:53amHyperlipidemia type IIacuteApril 2024 10:53amSecondary hyperparathyroidismacuteApril 2024 10:53amType 2 diabetes mellitus with diabetic chronic kidney diseaseacuteApril 2024 10:53am Hypertensive chronic kidney disease with stage 1 through stage 4 chronic ki deletedApril 2024 10:53amStage 4 chronic kidney diseasedeletedApril 2024 10:53amChronic bronchitis, simpleacuteApril 2024 1:59pmChronic HFrEF (heart failure with reduced ejection fraction)acuteApril 2024 1:59pm Chronic kidney diseaseacuteApril 2024 1:59pmHypothyroidism due to medicationacuteApr2024 1:59pmNonischemic dilated cardiomyopathyacute Me[place] 2024 1:59pmThyrotoxicosisacuteApril 2024 1:59pm [facility] Work Phone: 1(952) 108-432303-06-2025 Evaluation note* Diagnosis Onset Date Resolution Status Admit Date Chronic bronchitis, simple acuteMarch 2024 8:49amChronic HFrEF (heart failure with reduced ejection fraction)acuteMarch 2024 8:49amColon canceracuteMarch 2024 8:49am Hypothyroidism due to medicationacuteMarch 2024 8:49amNonischemic dilated cardiomyopathyacuteMarch 2024 8:49amThyrotoxicosisacuteMarch 2024 8:49amObstructive sleep apneainactiveMarch 2024 8:49amParoxysmal atrial fibrillationinactiveMarch 2024 8:49amPrimary hypertensioninactiveMarch 2024 8:49amType 2 diabetes mellitus with hyperglycemiainactiveMar 2024 8:49amStage 4 chronic kidney diseasedeletedMarch 2024 8:49amMedicare annual wellness visit, subsequentnoneactiveSt. [facility] 2024 8:49amScreening PSA (prostate specific antigen)noneactiveMarch 2024 8:49amChronic HFrEF (heart failure with reduced ejection fraction)acuteMarch 2024 10:13pmFemoral neck fractureacuteMarch 2024 10:13pmA-fibinactiveMarch 2024 10:13pmAcute kidney injury superimposed on CKDinactiveSt. [facility] Hospital 2024 10:13pmAcute on chronic anemiainactiveSt. [facility] 2024 10:13pmAspiration pneumoniainactiveSt. [facility] 2024 10:13pmCoronary artery diseaseinactiveSt. [facility] 2024 10:13pmImpaired mobility and activities of daily livinginaSelect Medical [facility] 2024 10:13pmMucopurulent chronic bronchitisinactiveSt. [facility] 2024 10:13pmObstructive sleep apneainactive [facility] 2024 10:13pmPacemakerinactiveSt. [facility] 2024 10:13pmParoxysmal atrial fibrillationinactiveSt. [facility] 2024 10:13pmPrimary hypertensioninactiveSt. [facility] 2024 10:13pmPulmonary hypertensioninactiveSt. [facility] 2024 10:13pmType 2 diabetes mellitus with hyperglycemiainactiveSt. [facility] Hospital 2024 10:13pmHypertensive chronic kidney disease with stage 1 through stage 4 chronic kideletedMarch 2024 10:13pmStage 4 chronic kidney diseasedeletedMarch 2024 10:13pmChronic HFrEF (heart failure with reduced ejection fraction)acuteMarch 2024 2:06pm Femoral neck fractureacuteMarch 2024 2:06pmHypercholesteremiaacuteMarch 2024 2:06pmIron deficiency anemiaacuteMarch 2024 2:06pmNonischemic dilated cardiomyopathyacuteMarch 2024 2:06pmPositive fecal occult blood testacuteMarch 2024 2:06pmA-fibinactiveMarch 2024 2:06pmAcute kidney injury superimposed on CKDinactiveMarch 2024 2:06pmAcute on chronic anemia inactiveMarch 2024 2:06pmAspiration pneumoniainactiveMar 2024 2:06pmCoronary artery diseaseinactiveMar 2024 2:06pmImpaired mobility and activities of daily livinginactiveSt. [facility] Hospital 2024 2:06pmMalignant neoplasm of right coloninactiveMarch 2024 2:06pmMucopurulent chronic bronchitis inactiveRobert [facility] [place] 20[facility] 2:06pmParoxysmal atrial fibrillationinactiveSt. [facility] 2024 2:06pmType 2 diabetes mellitus with hyperglycemiainactiveSt. [facility] 2024 2:06pmHypertensive chronic kidney disease with stage 1 through stage 4 chronic kideletedMarch 2024 2:06pmStage 4 chronic kidney diseasedeletedMar 2024 2:06pmFemoral neck fractureacuteApril 2024 9:53amStatus post hemiarthroplasty of right hipacuteApril 2024 9:53amAnemia of renal disease acuteApril 2024 10:53amChronic HFrEF (heart failure with reduced ejection fraction)acuteApril 2024 10:53amHyperlipidemia type IIacuteApril 2024 10:53amSecondary hyperparathyroidismacuteApril 2024 10:53amType 2 diabetes mellitus with diabetic chronic kidney diseaseacuteApril 2024 10:53am Hypertensive chronic kidney disease with stage 1 through stage 4 chronic ki deletedApril 2024 10:53amStage 4 chronic kidney diseasedeletedApril 2024 10:53amAcute blood loss anemiaacuteApril 2024 1:59pmChronic bronchitis, simpleacuteApril 2024 1:59pmChronic HFrEF (heart failure with reduced ejection fraction)acuteApril 2024 1:59pmChronic kidney disease acuteApril 2024 1:59pmFemoral neck fractureacuteApril 2024 1:59pm Hypotension after procedureacuteApril 2024 1:59pmHypothyroidism due to medicationacuteApril 2024 1:59pmNonischemic dilated cardiomyopathyacute January 28, 2025 1:59pmColon cancerdeletedMay 2024 9:34amFemoral neck fractureacuteMay 2024 11:18amStatus post hemiarthroplasty of right hip acuteMay 2024 11:18amTrochanteric bursitis, left hipacuteMay 2024 11:18am [facility] Work Phone: 1(192) 233-401502-19-2025 History of Present illness Narrative* MANUELA Riddle - 12/04/2024 1:00 PM EST Pt picked up supplies documented in this encounterFulton State [id number] [facility]Cardiovascular [facility] Chief Complaint Patient presents with Atrial Fibrillation Atrial Flutter Delano Oliver is a 84 y.o. male here for [...] OCCASIONAL Drug use: Never Allergies Allergen Reactions Ucxqzfv-Mfq-Nef Reductase Inhibitors Tramadol ROS Cardiovascular: Positive for [...] movements intact. Pupils: Pupi (more content not included)...[facility] 11-13-2024 NotePatient here for follow up DCCV on 10/17/[address] Montoya. Denies chest pain, SOB, palpitations, lightheadedness/syncope, and bleeding on Eliquis. Review of Systems Hematologic/Lymphatic: Bruises/bleeds easily. All other systems reviewed and are negative.[facility] 10-17-2024 NoteDIRECT CARDIOVERSION PROCEDURE NOTE Date: 10/17/2024. Type of procedure: DC Cardioversion. Performed by: Trang Montoya MD Informed consent: Signed by patient. [...] No complications noted. Plan: Continue anticoagulation. Trang Montoya MD Cardiac ElectrophysiologyFayette County [facility] Hospital01-02-20[facility] Note Patient: Delano Oliver Procedure Information Date/Time: 10/17/24 1230 Procedure: Cardioversion - PC APPROVED Location: [facility] RO[facility] / [facility] (Cath) Providers: Trang Montoya MD Clinical information reviewed: Allergies Meds Physical Exam Airway Mallampati: II TM distance: >3 FB Neck ROM: full Cardiovascular Dental Pulmonary Abdominal Anesthesia Plan ASA 3 CSE Anesthetic plan and risks discussed with patient. Use of blood products discussed with patient who. Additional Equipment RequestsUnMount [facility]11-26-2024 Note amiUnMount Carmel Health System11-26-2024 NoteUT Electrophysiology Consult Note Reason for visit: Afib and dilated CMP. 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 Subsequent echocardiogram in [...] symptoms. EKG: V pacing. Prior HPI: Delano Oliver is a 84 y.o. year old with [...] infrahisian disease. He was brought back to [facility] on 02/12/2020 due to what was discussed [...] Procedure Laterality Date CARD (more content not included)...[facility]11-06-2024 History of Present illness Narrative* Marilin Clay, [...] that time if needed. documented in this encounterFulton State [id number] NotePt is getting a colonoscopy in early August, is it alright to hold eliquis for two days prior to procedure?[facility]10-24-2024 History of Present illness Narrative* Avery Syed MD - 08/08/2024 10:30 AM EDT Images from the original note were not included. Date of Service: 08/08/24 PCP: YAS LINDA, DO History of Present Illness Delano Oliver is a 84 y.o. male, who is [...] quit smoking in 1981. Follows with Dr. Domínguez Pulmonary medicine in [place] 60% Left renal artery stenosis noted in the past Decreased left ventricular function ejection fraction 30%. Infant Nanny Yissel at [facility]. His mostrecall his echo on 09/11/2023 showed [...] colon status post colectomy with reanastomosis in [place] August 2021. Being followed by Oncology with [...] Safety: Unknown (12/07/2023) Received from [facility] Safety & Environment Fear of Current or Ex-Partner: Not on file Emotionally Abused: Not on file Physically Abused: Not on file Sexually Abused: Not on file Physically or Sexually Abused: Not on file Housing Instability: Not on file Family History: Family History Problem Relation Age of Onset Diabetes Mother Hypertension Mother Diabetes Father Hypertension Father Allergies & Medications Allergies: Allergies Allergen Reactions Npyaymn-Roz-Swv Reductase Inhibitors Current Meds: Current Outpatient Medications [...] results found for: IRONSAT , FERRITIN , [id number] , FOLATE Mineral [facility] Bone Labs: No [...] of your patients! Please contact me at [phone] (Office) or [phone] (Answering service) with any questions. AVERY SYED MD [facility] This note was created with the assistance of a speech-recognition program. Although the intention is to generate a document that actually reflects the content of the visit, no guarantees can be provided that every mistake has been identified and corrected by editing. AVERY SYED MD,PhD FACP [facility] ANY QUESTIONS FEEL FREE TO CALL: 1. OFFICE [phone] 2. ANSWERING SERVICE: [phone] documented in this encounterAkron Children's HospitalMediaWheel Covenant Medical [id number] History of Present illness Narrative* Sidra Tello DO - 07/09/2024 10:30 AM EDT Images from the original note were not included. Chief Complaint Patient presents with Sleep Apnea Subjective Delano Oliver, 84 y.o., male HPI He feels that [...] was councelled on the risks of stroke, [place], and sudden with MOLINA, along with the [...] to clinic: 1 year documented in this encounterFulton State [id number] Miscellaneous Notes* Telephone Encounter - Roslyn Wagner - 04/29/2024 9:02 AM EDT Pts called to schedule July f/u appt in [place] with P[facility]. Scheduled f/u appt and reminded to get labs 10 days prior. documented in this encounterSelect [facility] Errund [id number] Telephone encounter Note* Telephone Encounter - Roslynstefania Wagner - 04/29/2024 9:02 AM EDT Pts called to schedule July f/u appt in [place] with YOAN. Scheduled f/u appt and reminded to get labs 10 days prior. [facility] Seek & [id number] History of Present illness Narrative* Avery Syed MD - 02/08/2024 10:30 AM EDT Images from the original note were not included. Date of Service: 02/08/24 PCP: YAS LINDA DO History of Present Illness Delano Oliver is a 83 y.o. male, who was [...] Follows with Dr. Rodriguez Pulmonary medicine in [place] 60% Left renal artery stenosis noted in the past Decreased left ventricular function ejection fraction 30%. Infant Nanny Yissel at [facility]. His mostrecall his echo on 09/11/2023 showed [...] colon status post colectomy with reanastomosis in [place] August 2021. Being followed by Oncology with [...] Safety: Unknown (12/07/2023) Received from [facility] Safety & Environment Fear of Current or Ex-Partner: Not on file Emotionally Abused: Not on file Physically Abused: Not on file Sexually Abused: Not on file Physically or Sexually Abused: Not on file Housing Instability: Not on file Family History: Family History Problem Relation Age of Onset Diabetes Mother Hypertension Mother Diabetes Father Hypertension Father Allergies & Medications Allergies: Allergies Allergen Reactions Drfqenv-Yer-Kkx Reductase Inhibitors Current Meds: Current Outpatient Medications [...] results found for: IRONSAT , FERRITIN , [id number] , FOLATE Mineral and Bone Labs: No [...] of your patients! Please contact me at [phone] (Office) or [phone] (Answering service) with any questions. AVERY SYED MD [facility] This note was created with the assistance of a speech-recognition program. Although the intention is to generate a document that actually reflects the content of the visit, no guarantees can be provided that every mistake has been identified and corrected by editing. documented in [facility]The [facility] Instructions* Patient Instructions* Avery Syed MD - 02/08/2024 10:30 AM EDT Return in 6 months documented in this [facility]04-12-2024 Miscellaneous Notes* Telephone Encounter - Carolannmaedaya Abran - 01/26/2024 10:56 AM EDT Confirm appt with patient for 02/07 as well remind to have labs done 10-7 days before apt documented in [facility]The [facility] Telephone encounter Note* Telephone Encounter - Ketan Osullivan - 01/26/2024 10:56 AM EDT Confirm appt with patient for 02/07 as well remind to have labs done 10-7 days before apt [facility] Errund [id number] Evaluation note* Encounter Date Diagnosis Assessment Notes Treatment Notes Treatment Clinical Notes Dec, Thyrotoxicosis (ICD-10 - E05.90) Dec,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 Continue w/ healthy diet and exercise. Aug,hronic HFrEF (heart failure with reduced ejection fraction) (ICD-10 - I50.22)Instructed on low salt diet, exercise and daily weights. Instructed to notify office for any unexpected weight gain > 3lbs and/or increased dyspnea, difficulty breathing during sleep, worsening lower extremity swelling, chest pain or lightheadedness. Reviewed GDMT w/ beta blockers, TOMMY/ARB/ARNI,MRA and SGLT-2 Aug,Stage 4 chronic kidney disease (ICD-10 - N18.4)The patient is instructed on adequate control of hypertension and diabetes, if appropriate. They are also educated on the associated risks of NSAIDs and PPI use with kidney disease. They were instructed on adequate fluid balance and to avoid dehydration. 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 - due to iodine contrast, Amiodarone or idiopathic Continue Methimazole Recheck T4, T3 and TSH Aug,ulmonary hypertension (ICD-10 - I27.20) Aug,aroxysmal atrial fibrillation (ICD-10 - I48.0)This patient is in NSR or rate controlled. This patient is anticoagulated to prevent thromboembolic events. 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 No bleeding complications Aug,Mucopurulent chronic bronchitis (ICD-10 - J41.1)Stable w/ expected HERNANDEZ. Continue triple therapy. Rare use of MAHAMED No ER visits for AE Aug,rimary hypertension (ICD-10 - I10)This patient is instructed to consume a healthy, low-fat, low-salt diet. They are also encouraged to continue exercise to achieve/maintain a normal BMI. Aug,Obstructive sleep apnea (ICD-10 - G47.33)This patient is aware of the benefits associated with MOLINA: With continued use, the patient reduces the risk for WA, CVA, HTN, cardiac dysrhythmias and sudden cardiac deaths.The patient is also aware of the association between MOLINA and morning headaches, daytime somnolence, fatigue and obesity, whichalso has been improved with continued use.The patient is compliant with treatment, wearing the equipment every night for greater than 4 hours.The patient is instructed to continue use of the CPAP forOSA treatment. Aug,Malignant neoplasm of ascending colon (ICD-10 - C18.2)UTD w/ surveillance scopes. Next scope scheduled at year 3 Aug,Hyperlipidemia type II (ICD-10 - E78.01)Instructed on diet and exercise with continued statin therapy.Discussed the beneficial effects of lo wering cholesterol in reducing the risk for cerebrovascular and cardiovascular disease. 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 Instructed to notify office for any unexpected weight gain > 3lbs and/or increased dyspnea, difficulty breathing during sleep, worsening lower extremity swelling, chest pain or lightheadedness. Reviewed GDMT w/ beta blockers, TOMMY/ARB/ARNI,MRA and SGLT-2 Recently increased weight and edema - weight up 5lbs Notified cardiology clinic and instructed to increase Bumex - he has lost 5 lbs - no visible edema - recheck BMP, BNP Apr,Stage 4 chronic kidney disease (ICD-10 - N18.4)The patient is instructed on adequate control of hypertension and diabetes, if appropriate. They are also educated on the associated risks of NSAIDs and PPI use with kidney disease. They were instructed on adequate fluid balance and to avoid dehydration. 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 Elevated TSH w/ normal T4/T3 No obvious symptoms of low thyroid Apr,Mucopurulent chronic bronchitis (ICD-10 - J41.1)Continue triple therapy No ER visits for AECOPD UTD w/ vaccinations Apr,Malignant neoplasm of ascending colon (ICD-10 - C18.2)No s/s recurrence. UTD w/ surveillance scopes Apr,rimary hypertension (ICD-10 - I10)This patient is instructed to consume a healthy, low-fat, low-salt diet. They are also encouraged to continue exercise to achieve/maintain a normal BMI. Apr,Obstructive sleep apnea (ICD-10 - G47.33)This patient is aware of the benefits associated with MOLINA: With continued use, the patient reduces the risk for WA, CVA, HTN, cardiac dysrhythmias and sudden cardiac deaths.The patient is also aware of the association between MOLINA and morning headaches, daytime somnolence, fatigue and obesity, whichalso has been improved with continued use.The patient is compliant with treatment, wearing the equipment every night for greater than 4 hours.The patient is instructed to continue use of the CPAP forOSA treatment. Apr,Hyperlipidemia type II (ICD-10 - E78.01)Instructed on diet and exercise.Discussed the beneficial effects of lowering cholesterol in reducing the risk for cerebrovascular and cardiovascular disease. Recently added Zetia Apr,aroxysmal atrial fibrillation (ICD-10 - I48.0)This patient is rate controlled. This patient is anticoagulated to prevent thromboembolic events. 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 presented in late 2020 presented to the hospital with a streptococcal septicemia. 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 Psoas abscesses drained by interventional radiology on 05/27. In late June he completed 6 weeksof IV ceftriaxone. Ortho spine recommended conservative management [...] daughter also has Glo-Blackfan anemia. and Mrs. Oliver were tested for Glo-Blackfan anemia genetic mutation [...] for coordination of care (as documented) and vhza-nz-enrd counseling of patient and/or family. [facility] - Medical History Medical History: Medical History [...] Sodium 142, Potassium 4.3, Chloride 104, Carbon Tasiree15.0, Anion Gap 13.3, BUN 45 H, Creatinine 2.25 H, Est GFR (CKD-EPI) 28.753, Glucose 114 H, Calcium8.8, Iron 56, TIBC 281, Iron Cpufdrxhni24.9 L, Transferrin 201 L, Ferritin 236.7, Total [...] % (Auto) 68.3, Lymph % (Auto) 17.9, Llano % (Auto) 9.6, Eos % (Auto) 3.6, Baso % (Auto) 0.6, Nucleat RBC Rel Count 0.3, Neut # (Auto) 6.6, Lymph # (Auto) 1.7, Llano # (Auto) 0.9 H, Eos # (Auto) 0.3, Baso # (Auto) 0.1 - Home Medications and Allergies Allergies/Adverse Reactions: Allergies Ccpprcy-WHQ-JhT Reductase Inhibitor [Rhbgvzl-Fkd-Iks Reductase Inhibitor] Allergy (Verified 03/03/23 13:45) Muscle [...] by EDWARD Nelson> 03/03/23 1431 [facility] Work Phone: 1(170) 784-858105-02-2023 Evaluation note* Encounter Date Diagnosis Assessment Notes Treatment Notes Treatment Clinical Notes February, Thyrotoxicosis (ICD-10 - E05.90) [facility] Other 03-29-2023 Evaluation note* Encounter Date Diagnosis [...] Always wear a mask in public places. Dec,Type 2 diabetes mellitus with hyperglycemia, without long-term current use of insulin (ICD-10 - E11.65)BS may increase during illness. 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 [facility] Other 03-02-2023 Evaluation note* Encounter Date Diagnosis [...] and exercise. Reviewed age-appropriate preventive testing recommended. 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 Low salt diet, exercise f/u Cardiology Dec,hronic systolic congestive heart failure (ICD-10 - I50.22)Daily weights, extra diuretic to maintain stable weight. Dec,Type 2 diabetes mellitus with hyperglycemia, without long-term current use of insulin (ICD-10 - E11.65)This patient is following a comprehensive diabetic treatment plan. They are checking their feet daily for calluses and nonhealing ulcers. They are being seen for yearly dilated eye examinations. Goals: SBP less than 130, LDL less than 100, FBS less than 140, AC and A1C less than 7%. They are checking their BS daily, will which are reviewed at the office visit. Dec,Stage 4 chronic kidney disease (ICD-10 - N18.4)The patient is instructed on adequate control of hypertension and diabetes, if appropriate. They are also educated on the associated risks of NSAIDs and PPI use with kidney disease. They were instructed on adequate fluid balance and to avoid dehydration. 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 Nonfunctioning thyroid nodule. Continue medical treatment. Normalize TSH, T4,T3 Dec,Obstructive sleep apnea (ICD-10 - G47.33)This patient is aware of the benefits associated with MOLINA: With continued use, the patient reduces the risk for WA, CVA, HTN, cardiac dysrhythmias and sudden cardiac deaths.The patient is also aware of the association between MOLINA and morning headaches, daytime somnolence, fatigue and obesity, whichalso has been improved with continued use.The patient is compliant with treatment, wearing the equipment every night for greater than 4 hours.The patient is instructed to continue use of the CPAP forOSA treatment. Dec,Hyperlipidemia type II (ICD-10 - E78.01)Diet and exercise with continued statin therapy. Dec,Malignant neoplasm of ascending colon (ICD-10 - C18.2)Continue close surveillance. Repeat scope in year Dec,Lumbar spondylosis (ICD-10 - M47.816)The patient is instructed to avoid bending, twisting or lifting. They are to use intermittent heat and ice as needed. They may schedule a massage or gentle manipulation. They may safely use Tylenol as needed. Dec,hronic venous insufficiency (ICD-10 - I87.2)Avoid salt and elevate lower extremities, support stockings, inspect legs and feet daily for blisters and ulcerations. Dec,Mucopurulent chronic bronchitis (ICD-10 - J41.1)Mucinex as needed, hydrate. Continue triple therapy. No acute exacerbations requiring ER or hosp visits. Dec,Screening PSA (prostate specific antigen) (ICD-10 - Z12.5) Dec,ardiac pacemaker (ICD-10 - Z95.0) [facility] Other 01-30-2023 Evaluation note* Encounter Date Diagnosis Assessment Notes Treatment Notes Treatment Clinical Notes Oct, Other thyrotoxicosis without thyrotoxic crisis or storm (ICD-10 - E05.80) [facility] Other 11-18-2022 Progress note Author Chivo Keller [facility] September 02, 2022 2:38pmNote Date/TimeNovember 2021 2:33pmFalls [facility] [place] [address] Hem/Onc Follow Up Note - OP Signed Patient: Delano Oliver MR#: [id number] : 1940 Acct:[id number] Age/Sex: 82 / M Type: REG RCR [...] up with labs and scans forreview. No concernsvoiced at this time. HPI: 81-year-old male previously cared for by Dr. Shultz Past medical history includes COPD, type 2 diabetes, stage III renal disease, history of atrial fibrillation status post ablation, hypertension, hyperlipidemia, chronic anemia,type 2 diabetes, gout, heart disease. He has a pacemaker that was placed in January 2020. Outpatient medications include metoprolol, Imdur, Bumex, hydralazine, aspirin, niacin, allopurinol,iron, amlodipine, benazepril, clonidine, carvedilol, Tradjenta, Pulmicort, Anoro. presented in late 2020 presented to the hospital with a streptococcal septicemia. 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 Psoas abscesses drained by interventional radiology on 05/27. In late June he completed 6 weeksof IV ceftriaxone. Ortho spine recommended conservative management [...] daughter also has Glo-Blackfan anemia. and Mrs. Oliver were tested for Glo-Blackfan anemia genetic mutation [...] for coordination of care (as documented) and nwbj-ii-ucfo counseling of patient and/or family. [facility] - Medical History Medical History: Medical History [...] AST 32, ALT 26, Alkaline Phosphatase 112 H,Total Protein 6.7, Albumin 3.9, Globulin 2.8, Albumin/Globulin Ratio 1.4 08/31/22 10:00: Corrected WBC 6.7, Uncorrected WBC Count 6.7, RBC 4.00, Hgb 12.4L, Hct 37.2 L, MCV 92.9, MCH 31.0, MCHC 33.4, RDW 15.7 H, Plt Count 238, MPV 6.8, Neut % (Auto) 68.3, Lymph % (Auto) 18.5, Llano % (Auto) 8.4, Eos % (Auto) 4.3, Baso % (Auto) 0.5, Neut # (Auto) 4.6, Lymph # (Auto) 1.2, Llano # (Auto) 0.6, Eos # (Auto) 0.3, Baso # (Auto) 0.0, Nucleated RBC % (auto) 0.1 - Home Medications and Allergies Allergies/Adverse Reactions: Allergies Hjiwtaa-ZTJ-VfP Reductase Inhibitor [Whguape-Han-Akd Reductase Inhibitor] Allergy (Verified 09/02/22 14:10) Muscle [...] by Chivo Keller II DO> 09/02/22 1438 [facility] Work Phone: 1(761) 825-837910-06-2022 [facility] Progress note Author Leigha Nelson [facility] June 03, 2022 10:35amNote Date/TimeAugust 2021 10:10a[facility] [place] [id number] Hem/Onc Follow Up Note - OP Signed Patient: Delano Oliver MR#: [id number] : 1940 Acct:[id number] Age/Sex: 82 / M Type: REG RCR Copies to: MD Yas Lui DO Timothy J Adamowicz, II DO~ Date of Service: 06/03/2022 Time of [...] include metoprolol, Imdur, Bumex, hydralazine, aspirin, niacin, allopurinol,iron, amlodipine, benazepril, clonidine, carvedilol, Tradjenta, Pulmicort, Anoro. presented in late 2020 presented to the hospital with a streptococcal septicemia. 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 Psoas abscesses drained by interventional radiology on 05/27. In late June he completed 6 weeksof IV ceftriaxone. Ortho spine recommended conservative management [...] daughter also has Glo-Blackfan anemia. and Mrs. Oliver were tested for Glo-Blackfan anemia genetic mutation [...] for coordination of care (as documented) and hclq-tm-czmx counseling of patient and/or family. [facility] - Medical History Medical History: Medical History [...] Sodium 140, Potassium 4.4, Chloride 101, Carbon Tuhwnra83.7, BUN 42 H, Creatinine 2.23 H, Est GFR ( Amer) 34, Est GFR (Non-Af Amer) 28, Glucose 108H, Calcium 9.5, Total Bilirubin 0.5, AST 22, ALT 17, Alkaline Phosphatase 140 H, Total Protein 7.3,Albumin 3.9, Globulin 3.4, Albumin/Globulin Ratio 1.1 05/31/22 11:37: Corrected WBC 8.8, Uncorrected WBC Count 8.8, RBC 3.81 L, Hgb 11.1 L, Hct 33.6 L, MCV 88.2, MCH 29.2, MCHC 33.1, RDW 16.4 H, Plt Count 308, MPV 7.0, Neut % (Auto) 69.9, Lymph % (Auto)17.2, Llano % (Auto) 8.0, Eos % (Auto) 4.1, Baso % (Auto) 0.8, Neut # (Auto) 6.2, Lymph # (Auto) 1.5, Llano # (Auto) 0.7, Eos # (Auto) 0.4, Baso # (Auto) 0.1, Nucleated RBC % (auto) 0.0 - Home Medications and Allergies Allergies/Adverse Reactions: Allergies Wfxamqx-YMO-XfM Reductase Inhibitor [Asrjjgk-Cff-Mcp Reductase Inhibitor] Allergy (Verified 06/03/22 09:55) Muscle [...] <Electronically signed by EDWARD Nelson> 06/03/22 1035 [facility] Work Phone: 1(740) 150-893706-18-2022 NoteMR#: [id number] [facility] Pt. Name: Delano Oliver Admitted: 03/30/2022 Discharged: 04/02/2022 Date of : 1940 Physician: Gilmer Salazar MD DISCHARGE SUMMARY CONSULTING SERVICES: 1. Nephrology Service. 2. Endocrinology service. 3. Cardiology service. PRINCIPAL DIAGNOSES: 1. Vgzwm-nh-nsfxqme heart failure, reduced ejection fraction of 35%. 2. Acute kidney injury on chronic kidney disease, stage 4, resolved. 3. Dyspnea, on exertion. 4. Essential hypertension. 5. History of coronary artery disease. 6. Iodine-induced hyperthyroidism, uncontrolled. 7. Ynx-yjmiqym-lrxlhqmxr diabetes mellitus, diet controlled, A1c 6.4. 8. [...] is a 81-year-old male who presented to [facility] with chief complaint of dyspnea on exertion. 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 The patient also require repeat [...] Adler PA-C Date Trans: 04/02/2022 02:36 P/hans [id number] cc: Yas Linda D.O. [address] [place] [address] A [facility] [address] [facility]05-21-2022 NotePROCEDURE: XR CHEST 1 V REASON FOR [...] large effusion or pneumothorax. Electronically authenticated by: ISAURO OLMEDO Date: 2022-03-05 21:29[facility]05-15-2022 Progress note Author Chivo Keller [facility] February 27, 2022 12:52pmNote Date/TimeMay 2021 12:11pmFalls [facility] at [address] [address] Hem/Onc Follow Up Note - OP Signed Patient: Delano Oliver MR#: [id number] : 1940 Acct:[id number] Age/Sex: 81 / M Type: REG RCR Copies to: MD Yas Lui,DO~ Date of Service: 02/25/2022 Time of [...] include metoprolol, Imdur, Bumex, hydralazine, aspirin, niacin, allopurinol,iron, amlodipine, benazepril, clonidine, carvedilol, Tradjenta, Pulmicort, Anoro. presented in late 2020 presented to the hospital with a streptococcal septicemia. 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 Psoas abscesses drained by interventional radiology on 05/27. In late June he completed 6 weeksof IV ceftriaxone. Ortho spine recommended conservative management [...] daughter also has Glo-Blackfan anemia. and Mrs. Oliver were tested for Glo-Blackfan anemia genetic mutation [...] for coordination of care (as documented) and qrui-uf-qigu counseling of patient and/or family. [facility] - Medical History Medical History: Medical History [...] % (Auto) 65.1, Lymph % (Auto) 19.2, Llano % (Auto) 13.3, Eos % (Auto) 1.8, Baso % (Auto) 0.6, Neut # (Auto) 4.2, Lymph # (Auto) 1.2,Llano # (Auto) 0.9H, Eos # (Auto) 0.1, Baso # (Auto) 0.0, Nucleated RBC % (auto) 0.0 02/22/22 09:35: PHA Creatinine Clear 31.95, Sodium 140, Potassium 4.0, Chloride 104, Carbon Savndja81.7, BUN 57 H, Creatinine 2.16 H, Est GFR ( Amer) 36, Est GFR (Non-Af Amer) 30, Glucose 126H, Calcium 9.3, Total Bilirubin 0.8, AST 19, ALT 20, Alkaline Phosphatase 85, Total Protein 6.5, Albumin 3.3, Globulin 3.2, Albumin/Globulin Ratio 1.0, TSH 3rd Generation < 0.01 L 02/22/22 09:35: Carcinoembryonic Ag 1.6 - Home Medications and Allergies Allergies/Adverse Reactions: Allergies Xjstgfr-MFP-JmE Reductase Inhibitor [Dmixdru-Fqy-Epg Reductase Inhibitor] Allergy (Verified 02/25/22 11:39) Muscle Pain tramadol Allergy (Verified 02/25/22 11:39) Itching Home Medications: Home Medications allopurinol 100 mg tablet 100 mg PO DAILY 30 Days #30 tab 06/09/21 [Rx Confirmed 02/25/22] cholecalciferol (vitamin D3) 125 mcg (5,000 unit) capsule 125 mcg PO DAILY 30 Days #30 cap 06/09/21[Rx Confirmed 02/25/22] ferrous sulfate 324 mg (65 mg iron) tablet,delayed release 324 mg PO DAILY 30 Days #30 tab 06/09/21[Rx Confirmed 02/25/22] hydralazine 100 mg tablet 100 [...] by Chivo Keller II, DO> 02/27/22 1252 [facility] Work Phone: [phone]) 406-439011-16-2021 Consult note Author Nikunj Shultz [facility] August 31, 2021 9:50amNote Date/TimeNovember 2020 9:33[facility] at [address] [place] [address] Hem/Onc Consult Note - OP Signed Patient: Delano Oliver MR#: [id number] : 1940 Acct:[id number] Age/Sex: 81 / M Type: REG RCR [...] also taken care of the patient's son whohas Glo-Blackfan anemia. The son's daughter also has Glo-Blackfan anemia. and Mrs. Oliver were tested for Glo-Blackfan anemia genetic mutation but this was negative. The patient is presenting today in consultation August 31, 2021. He has recovered well from surgery. [facility] - Medical History Medical History: Medical History [...] Type: None Home Medications & Allergies Allergies Eddclel-XGJ-EnK Reductase Inhibitor [Lgcluve-Fyq-Vaf Reductase Inhibitor] Allergy (Verified 08/31/21 08:57) Muscle Pain tramadol Allergy (Verified 08/31/21 08:57) Itching Home Medications allopurinol 100 mg tablet 100 mg PO DAILY 30 Days #30 tab 06/09/21 [Rx Confirmed 08/31/21] cholecalciferol (vitamin D3) 125 mcg (5,000 unit) capsule 125 mcg PO DAILY 30 Days #30 cap 06/09/21[Rx Confirmed 08/31/21] ferrous sulfate 324 mg (65 mg iron) tablet,delayed release 324 mg PO DAILY 30 Days #30 tab 06/09/21[Rx Confirmed 08/31/21] hydralazine 100 mg tablet 100 [...] good air exchange. Neurological exam is grossly intact.Psychiatric exam shows a normal affect. - ECOG [...] and I can see no link with Glo- Blackfan anemia and colon cancer or Bravo syndrome. I will discuss with [facility] genetics and refer the patient for genetic testing. - Time with Patient Coordination of Care & Counseling Time: Greater than 50% of time spent with patient was for coordination of care (as documented) and npts-kl-aukx counseling of patient and/or family. Dictated By: Nikunj Shultz MD DD/ 0932 Signed By: <Electronically signed by MD Nikunj Shultz> 08/31/21 0950 [facility] Work Phone: Evaluation note* Diagnosis Onset Date Resolution Status Colon cancer acute [facility] Work Phone: Evaluation noteNo [facility] Other Evaluation note* Diagnosis Onset Date Resolution Status Chronic bronchitis, simple acuteChronic HFrEF (heart failure with reduced ejection fraction)acuteColon canceracuteHypothyroidism due to medicationacuteNonischemic dilated cardiomyopathyacuteObstructive sleep apneaacuteParoxysmal atrial fibrillation acutePrimary hypertensionacuteStage 4 chronic kidney diseaseacuteType 2 diabetes mellitus with hyperglycemiaacuteMedicare annual wellness visit, subsequent noneactiveScreening PSA (prostate specific antigen)noneactiveColon canceracute [facility] Work Phone: Evaluation note* Diagnosis Onset Date Resolution Status Colon cancer acuteChronic bronchitis, simpleacuteChronic HFrEF (heart failure with reduced ejection fraction)acuteColon canceracuteHypothyroidism due to medicationacute Nonischemic dilated cardiomyopathyacuteObstructive sleep apneaacuteParoxysmal atrial fibrillationacutePrimary hypertensionacuteStage 4 chronic kidney disease acuteType 2 diabetes mellitus with hyperglycemiaacute [facility] Work Phone: Evaluation note* Diagnosis Bilateral impacted cerumen- Primary Impacted cerumen documented in this encounter [facility] HealthcareEvaluation note* Diagnosis MOLINA (obstructive sleep apnea)- Primary Obstructive sleep apnea (adult) (pediatric) Hypersomnia Hypersomnia, unspecified Primary insomnia Persistent disorder of initiating or maintaining sleep Snoring Other dyspnea and respiratory abnormality Hypoxia Hypoxemia documented in this encounter [facility] HealthcareEvaluation note* Diagnosis Stage 4 chronic kidney disease ([facility])- Primary documented in this encounter [facility] SystemEvaluation note* Diagnosis Stage 4 chronic kidney disease ([facility])- Primary documented in this encounter [facility] SystemEvaluation note* Diagnosis Sensorineural hearing loss (SNHL) of both ears- Primary documented in this encounter [facility] HealthcareEvaluation note* Diagnosis Onset Date Resolution Status Admit Date Chronic bronchitis, simple acuteMarch 2024 8:49amChronic HFrEF (heart failure with reduced ejection fraction)acuteMarch 2024 8:49amColon canceracuteMarch 2024 8:49am Hypothyroidism due to medicationacuteMarch 2024 8:49amNonischemic dilated cardiomyopathyacuteMarch 2024 8:49amObstructive sleep apneaacuteMarch 2024 8:49amParoxysmal atrial fibrillationacuteMarch 2024 8:49amPrimary hypertensionacuteMarch 2024 8:49amStage 4 chronic kidney diseaseacuteMarch 2024 8:49amThyrotoxicosisacuteMarch 2024 8:49amType 2 diabetes mellitus with hyperglycemiaacuteMarch 2024 8:49amMedicare annual wellness visit, subsequentnoneactiveMarch 2024 8:49amScreening PSA (prostate specific antigen)noneactiveMarch 2024 8:49am [facility] Work Phone: Evaluation note* Diagnosis Diabetic polyneuropathy associated with type 2 diabetes mellitus ([facility])- Primary Onychodystrophy Other specified disease of [...] HealthcareHistory and physical note Author Ramesh Rascon [facility] July 21, 2022 9:27amNote Date/TimeOct2021 9:27[place] [address] Gastroenterology H&P Signed Patient: Delano Oliver MR#: [id number] : 1940 Acct:[id number] Age/Sex: 82 / M Adm Date: 2 Loc: Room: Type: [facility] Attending Dr: Ramesh Rascon MD Copies to: DO Ramesh Lauren MD~ Date of Service: 07/21/2022 HISTORY & PHYSICAL: Patient's history with special attention to the cardiovascular, pulmonary systems and the current problem was reviewed with the patient immediately prior to the procedure. Present medications and doses reviewed in the EMR. Allergies and pertinent laboratory tests were also re viewedat this time in the EMR. The physical [...] <Electronically signed by Ramesh Rascon MD> 07/21/22926 [facility] Work Phone: History general Narrative - Reported* Type Description Date Medical History Thyrotoxicosis Medical HistoryAcute blood loss anemiaMedical HistoryComplete heart blockMedical HistoryHyperuricemiaMedical HistoryPsoas abscessMedical HistoryHyperlipidemia type IIMedical HistoryOther eosinophiliaMedical HistoryHypokalemiaMedical HistoryLumbar spondylosisMedical HistoryChronic venous insufficiencyMedical HistoryParoxysmal atrial flutterMedical HistoryType 2 diabetes mellitus with hyperglycemia, without long-term current use of insulinMedical HistoryChronic systolic congestive heart failureMedical HistoryNonischemic dilated cardiomyopathyMedical HistoryObstructive sleep apneaMedical HistoryType 2 diabetes mellitus with chronic kidney disease, without long-term current use of insulin, unspecified CKD stageMedical HistoryHypertensive chronic kidney disease with stage 1 through stage 4 chronic kidney disease, or unspecified chronic kidney diseaseMedical HistoryHyperthyroidismMedical HistoryCardiac pacemaker Surgical HistoryLeft Surgical HistoryCyst removal x 2Surgical History cardiac [id number] HistoryINSERTION OF DUAL LEAD PACEMAKER4/20Surgical HistoryHEMICOLECTOMY, RIGHTurgical HistoryRHC- RIGHT HEART CATH [id number] HistoryLHC- LEFT HEART CATH04/2016Hospitalization HistorySee above [facility] Other History general Narrative - Reported* Type Description Date Medical History Thyrotoxicosis Medical HistoryAcute blood loss anemiaMedical HistoryComplete heart blockMedical HistoryHyperuricemiaMedical HistoryPsoas abscessMedical HistoryHyperlipidemia type IIMedical HistoryOther eosinophiliaMedical HistoryHypokalemiaMedical HistoryLumbar spondylosisMedical HistoryChronic venous insufficiencyMedical HistoryParoxysmal atrial flutterMedical HistoryType 2 diabetes mellitus with hyperglycemia, without long-term current use of insulinMedical HistoryChronic systolic congestive heart failureMedical HistoryNonischemic dilated cardiomyopathyMedical HistoryObstructive sleep apneaMedical HistoryType 2 diabetes mellitus with chronic kidney disease, without long-term current use of insulin, unspecified CKD stageMedical HistoryHypertensive chronic kidney disease with stage 1 through stage 4 chronic kidney disease, or unspecified chronic kidney diseaseMedical HistoryHyperthyroidismMedical HistoryCardiac pacemaker Surgical HistoryLeft Surgical HistoryCyst removal x 2Surgical History cardiac [id number] HistoryINSERTION OF DUAL LEAD PACEMAKER4/20Surgical HistoryHEMICOLECTOMY, RIGHTurgical HistoryRHC- RIGHT HEART CATH [id number] HistoryLHC- LEFT HEART CATH04/2016Surgical History Colonoscopy w/ polypectomy, repeat in Hospitalization HistorySee [facility] Other History general Narrative - Reported* Type Description Date Medical History Thyrotoxicosis Medical HistoryAcute blood loss anemiaMedical HistoryComplete heart blockMedical HistoryHyperuricemiaMedical HistoryPsoas abscessMedical HistoryHyperlipidemia type IIMedical HistoryOther eosinophiliaMedical HistoryHypokalemiaMedical HistoryLumbar spondylosisMedical HistoryChronic venous insufficiencyMedical HistoryParoxysmal atrial flutterMedical HistoryType 2 diabetes mellitus with hyperglycemia, without long-term current use of insulinMedical HistoryChronic systolic congestive heart failureMedical HistoryNonischemic dilated cardiomyopathyMedical HistoryObstructive sleep apneaMedical HistoryType 2 diabetes mellitus with chronic kidney disease, without long-term current use of insulin, unspecified CKD stageMedical HistoryHypertensive chronic kidney disease with stage 1 through stage 4 chronic kidney disease, or unspecified chronic kidney diseaseMedical HistoryHyperthyroidismMedical HistoryCardiac pacemaker Surgical HistoryLeft tka08/2016Surgical HistoryCyst removal x 2Surgical History cardiac [id number] HistoryINSERTION OF DUAL LEAD PACEMAKERurgical HistoryHEMICOLECTOMY, RIGHTurgical HistoryRHC- RIGHT HEART CATH 03/[id number] HistoryLHC- LEFT HEART CATH04/2016Surgical History Colonoscopy w/ polypectomy, repeat in yearurgical HistoryBiventricular ICD05/2023Hospitalization HistorySee above [facility] Other Hospital Discharge instructions Additional Instructions DISCHARGE [...] Follow up with PCP. - Office number [phone].[facility] Work Phone: InstructionsNot on filedocumented in this encounter [facility] SystemInstructionsNot on filedocumented in this encounter [facility] SystemProgress note Author Leigha Nelson [facility] June 03, 2022 10:35amNote Date/TimeAugust 2021 10:10[facility] [address] [address] Hem/Onc Follow Up Note - OP Signed Patient: Delano Oliver MR#: [id number] : 1940 Acct:[id number] Age/Sex: 82 / M Type: REG RCR [...] include metoprolol, Imdur, Bumex, hydralazine, aspirin, niacin, allopurinol,iron, amlodipine, benazepril, clonidine, carvedilol, Tradjenta, Pulmicort, Anoro. presented in late 2020 presented to the hospital with a streptococcal septicemia. 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 Psoas abscesses drained by interventional radiology on 05/27. In late June he completed 6 weeksof IV ceftriaxone. Ortho spine recommended conservative management [...] daughter also has Glo-Blackfan anemia. and Mrs. Oliver were tested for Glo-Blackfan anemia genetic mutation [...] for coordination of care (as documented) and evgs-ac-swwi counseling of patient and/or family. [facility] - Medical History Medical History: Medical History [...] Sodium 140, Potassium 4.4, Chloride 101, Carbon Soievsk22.7, BUN 42 H, Creatinine 2.23 H, Est GFR ( Amer) 34, Est GFR (Non-Af Amer) 28, Glucose 108H, Calcium 9.5, Total Bilirubin 0.5, AST 22, ALT 17, Alkaline Phosphatase 140 H, Total Protein 7.3,Albumin 3.9, Globulin 3.4, Albumin/Globulin Ratio 1.1 05/31/22 11:37: Corrected WBC 8.8, Uncorrected WBC Count 8.8, RBC 3.81 L, Hgb 11.1 L, Hct 33.6 L, MCV 88.2, MCH 29.2, MCHC 33.1, RDW 16.4 H, Plt Count 308, MPV 7.0, Neut % (Auto) 69.9, Lymph % (Auto)17.2, Llano % (Auto) 8.0, Eos % (Auto) 4.1, Baso % (Auto) 0.8, Neut # (Auto) 6.2, Lymph # (Auto) 1.5, Ll[place] # (Auto) 0.7, Eos # (Auto) 0.4, Baso # (Auto) 0.1, Nucleated RBC % (auto) 0.0 - Home Medications and Allergies Allergies/Adverse Reactions: Allergies Pqfpaik-SMR-KhL Reductase Inhibitor [Kmejacs-Wqk-Uwv Reductase Inhibitor] Allergy (Verified 06/03/22 09:55) Muscle [...] By: <Electronically signed by EDWARD Nelson> 06/03/22 5408 [facility] Work Phone: Progress note Author Chivo Keller [facility] September 02, 2022 2:38pmNote Date/TimeNov2021 2:33pm[facility] at [address] [address] Hem/Onc Follow Up Note - OP Signed Patient: Delano Oliver MR#: [id number] : 1940 Acct:[id number] Age/Sex: 82 / M Type: REG RCR [...] up with labs and scans forreview. No concernsvoiced at this time. HPI: 81-year-old male previously cared for by Dr. Shultz Past medical history includes COPD, type 2 diabetes, stage III renal disease, history of atrial fibrillation status post ablation, hypertension, hyperlipidemia, chronic anemia,type 2 diabetes, gout, heart disease. He has a pacemaker that was placed in January 2020. Outpatient medications include metoprolol, Imdur, Bumex, hydralazine, aspirin, niacin, allopurinol,iron, amlodipine, benazepril, clonidine, carvedilol, Tradjenta, Pulmicort, Anoro. presented in late 2020 presented to the hospital with a streptococcal septicemia. 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 Psoas abscesses drained by interventional radiology on 05/27. In late June he completed 6 weeksof IV ceftriaxone. Ortho spine recommended conservative management [...] daughter also has Glo-Blackfan anemia. and Mrs. Oliver were tested for Glo-Blackfan anemia genetic mutation [...] for coordination of care (as documented) and mqto-hs-sood counseling of patient and/or family. [facility] - Medical History Medical History: Medical History [...] AST 32, ALT 26, Alkaline Phosphatase 112 H,Total Protein 6.7, Albumin 3.9, Globulin 2.8, Albumin/Globulin Ratio 1.4 11/16/22 10:00: Corrected WBC 6.7, Uncorrected WBC Count 6.7, RBC 4.00, Hgb 12.4L, Hct 37.2 L, MCV 92.9, MCH 31.0, MCHC 33.4, RDW 15.7 H, Plt Count 238, MPV 6.8, Neut % (Auto) 68.3, Lymph % (Auto) 18.5, Llano % (Auto) 8.4, Eos % (Auto) 4.3, Baso % (Auto) 0.5, Neut # (Auto) 4.6, Lymph # (Auto) 1.2, Llano # (Auto) 0.6, Eos # (Auto) 0.3, Baso # (Auto) 0.0, Nucleated RBC % (auto) 0.1 - Home Medications and Allergies Allergies/Adverse Reactions: Allergies Czpgldc-ACF-XcG Reductase Inhibitor [Voeasad-Tda-Axr Reductase Inhibitor] Allergy (Verified 09/02/22 14:10) Muscle [...] by Chivo Keller II, DO> 09/02/22 1438 [facility] Work Phone: Progress note Author Chivo Keller [facility] September 01, 2023 2:14pmNote Date/TimeNovember 2022 2:09pmF[facility] [place] [address] Hem/Onc Follow Up Note - OP Signed Patient: Delano Oliver MR#: [id number] : 1940 Acct:[id number] Age/Sex: 83 / M Type: REG RCR [...] withotu conttrsast. cbc, cmp, spep sflc simmunofixation, ceab12, folate, iron studies prior to f/u - [...] include metoprolol, Imdur, Bumex, hydralazine, aspirin, niacin, allopurinol,iron, amlodipine, benazepril, clonidine, carvedilol, Tradjenta, Pulmicort, Anoro. presented in late 2020 presented to the hospital with a streptococcal septicemia. 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 Psoas abscesses drained by interventional radiology on 05/27. In late June he completed 6 weeksof IV ceftriaxone. Ortho spine recommended conservative management [...] daughter also has Glo-Blackfan anemia. and Mrs. Oliver were tested for Glo-Blackfan anemia genetic mutation [...] for coordination of care (as documented) and qfag-zc-leys counseling of patient and/or family. [facility] - Medical History Medical History: Medical History [...] Sodium 143, Potassium 4.5, Chloride 102, Carbon Qjmborj10.5 H, Anion Gap 10.0, BUN 51 H, Creatinine 2.29 H, Est GFR(CKD-EPI) 27.976, Glucose 111 H, Calcium 9.7, Iron 84, TIBC 290, Iron Dwyilcvcon91.0, Transferrin 207, Ferritin 239.3, Total Bilirubin 0.8,AST 23, ALT 20, Alkaline Phosphatase 114 H, Total Protein 6.9, Albumin 4.4, Globulin 2.5, Albumin/Globulin Ratio 1.8 08/30/23 09:32: Corrected WBC 7.0, Uncorrected WBC Count 7.0, RBC 3.96, Hgb 12.3L, Hct 36.8 L, MCV 92.8, MCH 30.9, MCHC 33.3, RDW 14.8, Plt Count 206, MPV 7.6, Neut % (Auto) 65.9, Lymph % (Auto) 21.9, Llano % (Auto) 7.9, Eos % (Auto) 3.8, Baso % (Auto) 0.5, Nucleat RBC Rel Count 0.1, Neut # (Auto) 4.6, Lymph # (Auto) 1.5, Llano # (Auto) 0.5, Eos # (Auto) 0.3, Baso # (Auto) 0.0 - Home Medications and Allergies Allergies/Adverse Reactions: Allergies Fyfpdqt-PWK-HdG Reductase Inhibitor [Ggwwsdn-Ymx-Tiq Reductase Inhibitor] Allergy (Verified 03/03/23 13:45) Muscle [...] Keller II, DO> 09/01/23 1414 [facility] Work Phone: Progress note Author Chivo Keller [facility] March 01, 2024 11:39amNote Date/TimeMay 2023 11:18[facility] [place] [address] Cancer Center Note Signed Patient: Delano Oliver MR#: [id number] : 1940 Acct:[id number] Age/Sex: 83 / M Type: REG AMB Date of Service: 03/01/24 Copies to: Yas Linda,DO~ Assessment & Plan A/P (1) Colon [...] include metoprolol, Imdur, Bumex, hydralazine, aspirin, niacin, allopurinol,iron, amlodipine, benazepril, clonidine, carvedilol, Tradjenta, Pulmicort, Anoro. presented in late 2020 presented to the hospital with a streptococcal septicemia. 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 Psoas abscesses drained by interventional radiology on 05/27. In late June he completed 6 weeksof IV ceftriaxone. Ortho spine recommended conservative management [...] daughter also has Glo-Blackfan anemia. and Mrs. Oliver were tested for Glo-Blackfan anemia genetic mutation [...] Allergy (Unknown, Verified 12/18/23 10:02) Unknown Reaction Ynipzon-BJL-VyL Reductase Inhibitor [Wuxgmyy-Pbc-Rrq Reductase Inhibitor] Allergy (Unknown, Verified 12/18/23 10:02) [...] PO DAILY ezetimibe 10 mg PO DAILY hunpaqokzvn-vdoxagjas-npfsuenn 200-62.5-25 mcg (Trelegy Ellipta) 1 inh inhalation [...] concerns voiced at time of intake. [facility] Medical History Medical History (Updated 01/30/24 @ [...] 1102 Signed By: <Electronically signed by Chivo Kleler II, DO> 03/01/24 1139 [facility] Work Phone: Reason for referral (narrative)No reason for referral information availableCorey Hospital Work Phone: Summary Purpose Family History No Family History Records Found Relationship Condition Age at Onset Recorded Date/T sergio father Congestive heart failure Unknown Not SpecifiedType 2 diabetes mellitusUnknownbrotherMalignant neoplasmUnknown natural sonCongenital pure red cell aplasiaUnknown Relationship Condition Age at Onset Recorded Date/T sergio father Congestive heart failure Unknown Not SpecifiedType 2 diabetes mellitusUnknownbrotherMalignant neoplasmUnknown natural sonCongenital pure red cell aplasiaUnknownfatherHeart diseaseUnknown DeceasedUnknownNot SpecifiedHeart diseaseUnknown Relationship Condition Age at Onset Recorded Date/T sergio father Congestive heart failure Unknown motherType 2 diabetes mellitusUnknownbrotherMalignant neoplasmUnknownson Congenital pure red cell aplasiaUnknownfatherHeart diseaseUnknownDeceasedUnknown motherHeart diseaseUnknown Relationship Condition Age at Onset Recorded Date/T sergio father Congestive heart failure Unknown DeceasedUnknownHeart diseaseUnknownmotherType 2 diabetes mellitusUnknownbrother Malignant neoplasmUnknownsonCongenital pure red cell aplasiaUnknown Advance Directives No Advanced Directives Records Found Advance Directive Response Recorded Date/ Time Advance Directives No September 22, 2017 10:28am Advance Directive Response Recorded Date/ Time Advance Directives No September 22, 2017 9:28am Advance Directive Response Recorded Date/ Time Advance Directives No April 22 4 11:21am Chief Complaint and Reason for Visit Chief Complaint LABS Colon CancerReason for VisitColon cancer Chief Complaint LABS Colon Cancer Hx of Colon PolypsReason for VisitColon cancer Chief Complaint LABS Colon Cancer Hx of Colon Polyps Hx of Colon PolypsReason for VisitColon cancer Chief Complaint Hx of Colon Polyps Hx of Colon Polyps Colon CancerReason for VisitColon cancer Chief Complaint Colon Cancer Reason for Visit Colon cancer Chief Complaint Medicare Wellness Colon CancerReason for VisitChronic bronchitis, simple Chronic HFrEF (heart failure with reduced ejection fraction) Colon cancer 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 Obstructive sleep apnea Paroxysmal atrial fibrillation Primary hypertension Stage 4 chronic kidney disease Type 2 diabetes mellitus with hyperglycemia Medicare annual wellness visit, subsequent Screening PSA (prostate specific antigen) Colon cancer Chief Complaint Colon Cancer 4 month follow upReason for VisitColon cancer Chronic bronchitis, simple Chronic HFrEF (heart [...] 2:06pm Type 2 diabetes mellitus with hyperglyce [facility] December 27, 2024 2:06pm Chief Complaint Admit [...] 21, 2024 10:13pm Mucopurulent chronic bronchitis December 82024 10:13pm Obstructive sleep apnea December 21, 2024 [...] 8:49am Screening PSA (prostate specific antigen ) March 6th, 2025 8:49am Chronic HFrEF (heart failure with reduce [...] m OP 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, 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 February 11:18am Z96.641 - Presence of right [...] 2025 5:49pm Right Femoral Neck Fx s/p Dlemar Arthropla sty January 06, 2025 12:20pm Amb Documentation January 10, 2025 8:2 6am Z96.641 - 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 January 14, 2025 9:42am 2 WEEKS January 14, 2025 9:53 am D64.9 N17.9 Z96.641 January 16, 2025 1:45 pm hospital f/u January 20, 2025 10:5 3am rehab-hip fracture 2 wk f/u January 28, 2025 1:59pm OP 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, 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 February 11:18am Z96.641 - Presence of right [...] 1:59pm OP 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, 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 February 11:18am Z96.641 - Presence of right [...] 2025 1:59pm Chronic bronchitis, simple January 28, 1:59pm Chronic HFrEF (heart failure with reduce [...] Date OP 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, 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 February 11:18am Z96.641 - Presence of right [...] 29, 2025 9:55 am Follow Up 3 June 06, 2025 12 :41pm Colon Cancer [...] 2025 9:17am Chronic kidney disease July 08, 2 025 9:17am Colon cancer July 08, 2025 9:17am Hypercholesteremia July 08, 2025 9:17am Hypothyroidism due to medication Septemb er 2024 9:17am Nonischemic dilated cardiomyopathy [facility] 2024 9:17am Chief Complaint Admit Date 10-12 WEEKS April 29, 2025 9:55 am Follow Up 3 Months June 06, 2025 12 :41pm Colon Cancer June 06, 2025 12 :43pm 3 mo f/u July 08, 2025 9:17am Amb Documentation July 21, 2025 9: 45am arm bruising/ ER follow up July 22, 2025 3:46pm Reason for Visit Admit Date Femoral neck fracture April 29, 2025 9: [...] 2025 10:20am Snoring July 07, 2025 10:20am Atrial fibrillation July 08, 2025 9:17am Chronic bronchitis, simple June 9:17am Chronic HFrEF (heart failure with reduced ejection fraction) July 08, 2025 9:17am Chronic kidney disease July 08, 2 025 9:17am Colon cancer July 08, 2025 9:17am Hypercholesteremia July 08, 2025 9:17am Hypothyroidism due to medication Septemb er 2024 9:17am Nonischemic dilated cardiomyopathy Septe mber 2024 9:17am Obstructive sleep apnea July 08, 2025 9:17am Type 2 diabetes mellitus with hyperglyce yossi July 08, 2025 9:17am Atrial fibrillation July 22, 2025 3: 46pm Bruising at injection site July 22, 2025 3:46pm Chronic HFrEF (heart failure with reduced ejection fraction) July 22, 2025 3:46pm Nonischemic dilated cardiomyopathy Octob er 2024 3:46pm Additional Source Comments (unrecognized sect ion and content) No Status Records FoundNo Status Records FoundNo Status Records FoundNo Status Records FoundNo Status Records FoundNo Status Records Found INFORMATION SOURCE (unrecogn ized section and content) DATE CREATED AUTHOR 07/09/2021 [facility] DATE CREATED AUTHOR AUTHOR'S ORGANIZ ATION 06/10/2022 [facility] DATE CREATED AUTHOR AUTHOR'S ORGANIZ ATION 03/01/2023 [facility] DATE CREATED AUTHOR AUTHOR'S ORGANIZ ATION 05/27/2025 [facility] DATE CREATED AUTHOR AUTHOR'S ORGANIZ ATION 06/04/2025 [facility] DATE CREATED AUTHOR AUTHOR'S ORGANIZ ATION 07/31/2025 [facility] Care Teams (unrecognized sec tion and content) Team Status: Active Member Role Status Dates Yas Linda DO Primary Care Provider Active Team Status: Inactive Member Role Status Dates Yas Linda DO Primary Care Provider Active Start: April 17, 2025 End: April 17bdul Lionel , MDAttending ProviderActiveStart: April 17, 2025 End: April 17, 2025 Team Status: Inactive Member Role Status Dates Yas Linda DO Primary Care Provider Active Start: April 29, 2025 End: April 29, 2025Thomas Olexa , MDAttending ProviderActiveStart: April 29, 2025 End: April 29, 2025 Team Status: Inactive Member Role Status Dates Yas Linda DO Primary Care Provider Active Start: June 06, 2025 End: June 06samantha Mayfield , 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-CAttending ProviderActiveStart: June 06, 2025 End: June 06, 2025 Team Status: Active Member Role Status Dates Yas Linda DO Primary Care Provider Active Start: June 06, 2025 Kalia Sánchez , MDReferring ProviderActiveStart: June 06, 2025 Chivo Keller II, DOAttending ProviderActiveStart: June 06, 2025 Team Status: Active Member Role Status Dates Yas Linda DO Primary Care Provider Active Start: July 01, 2025 Yas Linda , DOAttending ProviderActiveStart: July 01, 2025 Team Status: Inactive Member Role Status Dates Yas Linda DO Primary Care Provider Active Start: July 07, 2025 End: July 07, 2025Sidra Tello , DOAttending ProviderActiveStart: July 07, 2025 End: July 07, 2025 Team Status: Inactive Member Role Status Dates Yas Linda DO Primary Care Provider Active Start: July 08, 2025 End: July 08enalbert Linda , DOAttending ProviderActiveStart: July 08, 2025 End: July 08, 2025 Team Status: Active Member Role Status Dates Yas Linda DO Primary Care Provider Active Start: April 08, 2025 Zahida Lionel , MDAttending ProviderActiveStart: April 08, 2025 Team Status: Inactive Member Role Status Dates Yas Linda DO Primary Care Provider Active Start: March 25, 2025 End: March 25enalbert Linda , DOAttending ProviderActiveStart: March 25, 2025 End: March 25, 2025 Team Status: Inactive Member Role Status Dates Yas Linda DO Primary Care Provider Active Start: April 07, 2025 End: April 07enalbert Linda DOAttending ProviderActiveStart: April 07, 2025 End: April 07, 2025 Team Status: Active Member Role Status Dates Yas Linda DO Primary Care Provider Active Start: February 20, 2025 Yas Linda DOAttending ProviderActiveStart: February 20, 2025 Team Status: Inactive Member Role Status Dates Yas Linda DO Primary Care Provider Active Start: February 25, 2025 End: February 25, 2025ThMarybeth Singh ProviderActiveStart: February 25, 2025 End: February 25, 2025 Team Status: Inactive Member Role Status Dates Walker Soria MD Attending Provider Active Star t: February 25, 2025 End: February 25enalbert Linda DOPrimary Care ProviderActiveStart: February 25, 2025 End: February 25, 2025 Team Status: Inactive Member Role Status Dates Yas Linda DO Primary Care Provider Active Start: February 28, 2025 End: February 28, 2025Chivo Keller II, DOAttending ProviderActiveStart: February 28, 2025 End: February 28, 2025 Team Status: Active Member Role Status Dates Yas Linda DO Primary Care Provider Active Start: February 28, 2025 PEARL Sarahef[place]toriyaing ProviderActiveStart: February 28, 2025 Chivo Keller II, DOAttending ProviderActiveStart: February 28, 2025 Team Status: Inactive Member Role Status Dates Yas Linda DO Primary Care Provide r, Attending Provider Active Start: December 19, 2024 End: December 19, 2024 Team Status: Active Member Role Status Dates Yas Linda DO Primary Care Provider Active Start: December 21, 2024 Johnnie Garcia MDAttending ProviderActiveStart: December 21, 2024 Team Status: Inactive Member Role Status Dates Yas Linda DO Primary Care Provider Active Start: December 21, 2024 End: December 27, 2024Aspen Donahue ProviderActiveStart: December 21, 2024 End: December 27, 2024Walker Soria MDOther ProviderActiveStart: December 21, 2024 End: December 27Armani Belle ProviderActiveStart: December 21, 2024 End: December 27, 2024Kiesha Hawley NP-COther ProviderActiveStart: December 21, 2024 End: December 27, 2024Juperi Winslow DOOther ProviderActiveStart: December 21, 2024 End: December 27, 2024Mazin Erickson II, MDOther ProviderActiveStart: December 21, 2024 End: December 27, 2024Dario Rosales DOOther ProviderActiveStart: December 21, 2024 End: December 27, 2024Shyesika Reynolds DOAttending ProviderActiveStart: December 21, 2024 End: December 27, 2024Armani Ha ProviderActiveStart: December 21, 2024 End: December 27, 2024Judy Macias NP-COther ProviderActiveStart: December 21, 2024 End: December 27bernard Flowers MDOther ProviderActiveStart: December 21, 2024 End: December 27Armani Schreiber ProviderActiveStart: December 21, 2024 End: December 27, 2024Talisha Hitchcock MDOther ProviderActiveStart: December 21, 2024 End: December 27, 2024Armani Abdi ProviderActiveStart: December 21, 2024 End: December 27, 2024Brenda Driscoll APRNOther ProviderActiveStart: December 21, 2024 End: December 27enedifranklin Quinteros Jr, DOOther ProviderActiveStart: December 21, 2024 End: December 27manuel Bedolla MDOther ProviderActiveStart: December 21, 2024 End: December 27, 2024 Team Status: Active Member Role Status Dates Yas Linda DO Primary Care Provider Active Start: December 22, 2024 Aspen Donahue ProviderActiveStart: December 22, 2024 Walker Soria MDOther ProviderActiveStart: December 22, 2024 Wendy Mota MDAttcindy Provider, Other ProviderActiveStart: December 22, 2024 Kiesha L Madison , 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-COther ProviderActiveStart: December 22, 2024 José Luis Winslow , DOOther ProviderActiveStart: December 22, 2024 Mazin Erickson II, MDOther ProviderActiveStart: December 22, 2024 Dario Rosales , DOOther ProviderActiveStart: December 22, 2024 Emile Reynolds , DOOther ProviderActiveStart: December 22, 2024 Winsome Goff MDOther ProviderActiveStart: December 22, 2024 Judy Macias , 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-COther ProviderActiveStart: December 22, 2024 Zahida Flowers MDOther ProviderActiveStart: December 22, 2024 Kaitlynn Emanuel MDOther ProviderActiveStart: December 22, 2024 Talisha Hitchcock MDOther ProviderActiveStart: December 22, 2024 Sotero Black MDOther ProviderActiveStart: December 22, 2024 Brenda Driscoll , APRNOther ProviderActiveStart: December 22, 2024 William Quinteros Jr, DOOther ProviderActiveStart: December 22, 2024 Clyde Bedolla MDOther ProviderActiveStart: December 22, 2024 Team Status: Active Member Role Status Dates Yas Linda DO Primary Care Provider Active Start: December 22, 2024 Walker Soria MDOther ProviderActiveStart: December 22, 2024 Wendy Mota MDOther ProviderActiveStart: December 22, 2024 Kiesha Hawley , 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-COther ProviderActiveStart: December 22, 2024 José Luis Winslow , DOOther ProviderActiveStart: December 22, 2024 Mazin Erickson II, MDOther ProviderActiveStart: December 22, 2024 Dario Rosales , DOOther ProviderActiveStart: December 22, 2024 Sandra Donahueit ProviderActiveStart: December 22, 2024 Jaye Jorgensen MDOther ProviderActiveStart: December 22, 2024 Danuta Salomon RNOther ProviderActiveStart: December 22, 2024 Duncan Meier MDOther ProviderActiveStart: December 22, 2024 Adan Díaz MDOther ProviderActiveStart: December 22, 2024 Krysten Bowers , MDAttending Provider, Other ProviderActiveStart: December 22, 2024 Team Status: Active Member Role Status Dates Yas Linda DO Primary Care Provider Active Start: December 23, 2024 Sudha Sood MDAdmit ProviderActiveStart: December 23, 2024 Danuta Salomon RNOther ProviderActiveStart: December 23, 2024 Duncan Meier MDOther ProviderActiveStart: December 23, 2024 Adan Díaz MDOther ProviderActiveStart: December 23, 2024 Krysten oBwers MDOther ProviderActiveStart: December 23, 2024 Walker Soria , MDAttending Provider, Other ProviderActiveStart: December 23, 2024 Wendy Mota MDOther ProviderActiveStart: December 23, 2024 Kiesha Hawley 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-COther ProviderActiveStart: December 23, 2024 José Luis Winslow DOOther ProviderActiveStart: December 23, 2024 Mazin Erickson II, MDOther ProviderActiveStart: December 23, 2024 Dario Rosales DOOther ProviderActiveStart: December 23, 2024 Emile Reynolds DOOther ProviderActiveStart: December 23, 2024 Team Status: Active Member Role Status Dates Yas Linda DO Primary Care Provider Active Start: December 24, 2024 Sudha Sood MDAdmit ProviderActiveStart: December 24, 2024 Walker Soria MDOther ProviderActiveStart: December 24, 2024 Armani Leyva ProviderActiveStart: December 24, 2024 Kiesha Hawley 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-COther ProviderActiveStart: December 24, 2024 José Luis Winslow DOOther ProviderActiveStart: December 24, 2024 Mazin Erickson II, MDOther ProviderActiveStart: December 24, 2024 Dario Rosales DOOther ProviderActiveStart: December 24, 2024 Emile Reynolds DOOther ProviderActiveStart: December 24, 2024 Talisha Hitchcock MDOther ProviderActiveStart: December 24, 2024 Sotero Black MDOther ProviderActiveStart: December 24, 2024 Brenda Turovskaya , APRNOther ProviderActiveStart: December 24, 2024 William Quinteros Jr, DOOther ProviderActiveStart: December 24, 2024 Clyde Bedolla MDOther ProviderActiveStart: December 24, 2024 Armani Ha ProviderActiveStart: December 24, 2024 Judy Macias , 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-COther ProviderActiveStart: December 24, 2024 Zahida Flowers MDAttending Provider, Other ProviderActiveStart: December 24, 2024 Kaitlynn Emanuel MDOther ProviderActiveStart: December 24, 2024 Team Status: Active Member Role Status Dates Yas Linda DO Primary Care Provider Active Start: December 25, 2024 Sudha Sood MDAdmit ProviderActiveStart: December 25, 2024 Walker Soria MDOther ProviderActiveStart: December 25, 2024 Wendy Mota MDOther ProviderActiveStart: December 25, 2024 Kiesha Hawley 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-COther ProviderActiveStart: December 25, 2024 José Luis Winslow DOOther ProviderActiveStart: December 25, 2024 Mazin Erickson II, MDOther ProviderActiveStart: December 25, 2024 Dario Rosales DOOther ProviderActiveStart: December 25, 2024 Emile Reynolds DOOther ProviderActiveStart: December 25, 2024 Winsome Goff MDOther ProviderActiveStart: December 25, 2024 Judy Macias , 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-COther ProviderActiveStart: December 25, 2024 Zahida Flowers MDOther ProviderActiveStart: December 25, 2024 Kaitlynn Emanuel MDOther ProviderActiveStart: December 25, 2024 Talisha Hitchcock MDOther ProviderActiveStart: December 25, 2024 Sotero Black MDOther ProviderActiveStart: December 25, 2024 Brenda Driscoll , APRNOther ProviderActiveStart: December 25, 2024 William Quinteros Jr, DOOther ProviderActiveStart: December 25, 2024 Clyde Bedolla MDAttending Provider, Other ProviderActiveStart: December 25, 2024 Team Status: Inactive Member Role Status Dates Yas Linda DO Primary Care Provider Active Start: December 27, 2024 End: January 10, 2025JoAspen Jones Provider, Attending ProviderActive Start: December 27, 2024 End: January 10lexlilia Bates RNOther ProviderActiveStart: December 27, 2024 End: January 10, 2025Carolynn Jacobs RNOther ProviderActiveStart: December 27, 2024 End: January 10, 2025Miccliff Kirkland RNOther ProviderActiveStart: December 27, 2024 End: January 10, 2025Mofarrah Balbuena RNOther ProviderActiveStart: December 27, 2024 End: January 10, 2025Marniko Brice RNOther ProviderActiveStart: December 27, 2024 End: January 10, 2025Raney Jasso MDOther ProviderActiveStart: December 27, 2024 End: January 10, 2025Ronbrianna Bustamante DOOther ProviderActiveStart: December 27, 2024 End: January 10, 2025Musarnold Salazar MDOther ProviderActiveStart: December 27, 2024 End: January 10, 2025Krdinora Adhikari DOOther ProviderActiveStart: December 27, 2024 End: January 10ndArmani Baker ProviderActiveStart: December 27, 2024 End: January 10, 2025Sudha Sood MDOther ProviderActiveStart: December 27, 2024 End: January 10, 2025Micjanene Curry DOOther ProviderActiveStart: December 27, 2024 End: January 10, 2025Armani Jenkins ProviderActiveStart: December 27, 2024 End: January 10, 2025LyDoris Menjivar ProviderActiveStart: December 27, 2024 End: January 10, 2025Armani Rosenberg ProviderActiveStart: December 27, 2024 End: January 10Armani Arreola ProviderActiveStart: December 27, 2024 End: January 10, 2025Mazhar Prasad , MDOther ProviderActiveStart: December 27, 2024 End: January 10, 2025SaArmani Nicole ProviderActiveStart: December 27, 2024 End: January 10, 2025MicZarina Glass ProviderActiveStart: December 27, 2024 End: January 10, 2025Armani Steinberg ProviderActiveStart: December 27, 2024 End: January 10, 2025Armani Tran ProviderActiveStart: December 27, 2024 End: January 10calvin Stone NP-COther ProviderActiveStart: December 27, 2024 End: January 10dtico Grey APRNOt ProviderActiveStart: December 27, 2024 End: January 10, 2025Armani Hull ProviderActiveStart: December 27, 2024 End: January 10, 2025NaeArmani Negron ProviderActiveStart: December 27, 2024 End: January 10, 2025RoArmani Martínez ProviderActiveStart: December 27, 2024 End: January 10, 2025Khcira Cowan MDOther ProviderActiveStart: December 27, 2024 End: January 10noArmani Burk ProviderActiveStart: December 27, 2024 End: January 10, 2025Mirian Calvo DOOther ProviderActiveStart: December 27, 2024 End: January 10, 2025Vish Bajwa DOOther ProviderActiveStart: December 27, 2024 End: January 10, 2025Krysten Mcclelland , APRNOther ProviderActiveStart: December 27, 2024 End: January 10, 2025Emile Reynolds DOOther ProviderActiveStart: December 27, 2024 End: January 10, 2025Carole Burden MDOther ProviderActiveStart: December 27, 2024 End: January 10, 2025Siobhan Rucker APRNOther ProviderActiveStart: December 27, 2024 End: January 10red Maria APRNOther ProviderActiveStart: December 27, 2024 End: January 10campbell Calderon MDOther ProviderActiveStart: December 27, 2024 End: January 10, 2025Live Grajeda MDOther ProviderActiveStart: December 27, 2024 End: January 10, 2025Doron Diaz , DOOther ProviderActiveStart: December 27, 2024 End: January 10carlos Garg , DOOther ProviderActiveStart: December 27, 2024 End: January 10, 2025Wolfgang Resendiz MDOther ProviderActiveStart: December 27, 2024 End: January 10yoanna Haley MDOther ProviderActiveStart: December 27, 2024 End: January 10la Sotelo APRNOther ProviderActiveStart: December 27, 2024 End: January 10, 2025Mosteffi Pierce MDOther ProviderActiveStart: December 27, 2024 End: January 10dimas Jain MDOther ProviderActiveStart: December 27, 2024 End: January 10, 2025Sotero Mijares MDOther ProviderActiveStart: December 27, 2024 End: January 10, 2025Armani Holder ProviderActiveStart: December 27, 2024 End: January 10, 2025Rashira Monson MDOther ProviderActiveStart: December 27, 2024 End: January 10, 2025Aria Schaffer APRNOther ProviderActiveStart: December 27, 2024 End: January 10, 2025Alvina Ch APRNOther ProviderActiveStart: December 27, 2024 End: January 10, 2025Sayesy Kay RNOther ProviderActiveStart: December 27, 2024 End: January 10, 2025Winsome Goff MDOther ProviderActiveStart: December 27, 2024 End: January 10, 2025Wayne Joynerher ProviderActiveStart: December 27, 2024 End: January 10bernard Flowers MDOther ProviderActiveStart: December 27, 2024 End: January 10carly Emanuel MDOther ProviderActiveStart: December 27, 2024 End: January 10sean Rascon MDOther ProviderActiveStart: December 27, 2024 End: January 10, 2025Jerry Velasquez , APRNOther ProviderActiveStart: December 27, 2024 End: January 10, 2025Son Nicole MDOther ProviderActiveStart: December 27, 2024 End: January 10genny Tian , DOOther ProviderActiveStart: December 27, 2024 End: January 10, 2025Gilles Kirkland , APRNOther ProviderActiveStart: December 27, 2024 End: January 10, 2025 Team Status: Active Member Role Status Dates Yas Linda DO Primary Care Provider Active Start: December 28, 2024 Sotero Black , MDAdmit Provider, Other ProviderActiveStart: December 28, 2024 Noemy Bates , CAROLOther ProviderActiveStart: December 28, 2024 Carolynn Jacobs , CAROLOther ProviderActiveStart: December 28, 2024 Gretel Kirkland , CAROLOther ProviderActiveStart: December 28, 2024 Merissa Balbuena , CAROLOther ProviderActiveStart: December 28, 2024 Pati Brice , CAROLOther ProviderActiveStart: December 28, 2024 Vicky Jasso MDOther ProviderActiveStart: December 28, 2024 Kofi Bustamante , DOOther ProviderActiveStart: December 28, 2024 Mario Salazar MDOther ProviderActiveStart: December 28, 2024 Rachid Adhikari DOOther ProviderActiveStart: December 28, 2024 Yassine De León MDOther ProviderActiveStart: December 28, 2024 Sudha Sood MDOther ProviderActiveStart: December 28, 2024 Micah Curry , DOOther ProviderActiveStart: December 28, 2024 Nav Peterson MDOther ProviderActiveStart: December 28, 2024 Zoie Field , APRNOther ProviderActiveStart: December 28, 2024 Jaye Jorgensen MDOther ProviderActiveStart: December 28, 2024 Augustine Bishop MDOther ProviderActiveStart: December 28, 2024 Jan Prasad MDOther ProviderActiveStart: December 28, 2024 Shannan Valentin MDOther ProviderActiveStart: December 28, 2024 Micah Lyn DOOther ProviderActiveStart: December 28, 2024 Elliott Cole MDOther ProviderActiveStart: December 28, 2024 Yaron Devi MDOther ProviderActiveStart: December 28, 2024 Candi Stone , 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-COther ProviderActiveStart: December 28, 2024 Matthew Grey , APRNOther ProviderActiveStart: December 28, 2024 Kuldeep See MDOther ProviderActiveStart: December 28, 2024 Kings Goncalves MDOther ProviderActiveStart: December 28, 2024 Eloy Resendiz MDOther ProviderActiveStart: December 28, 2024 Jon Cowna MDOther ProviderActiveStart: December 28, 2024 Elias Fermin MDOther ProviderActiveStart: December 28, 2024 Mirian Calvo DOOther ProviderActiveStart: December 28, 2024 Vish Bajwa , DOOther ProviderActiveStart: December 28, 2024 Krysten Mcclelland , APRNOther ProviderActiveStart: December 28, 2024 Emile Reynolds DOOther ProviderActiveStart: December 28, 2024 Carole Burden MDOther ProviderActiveStart: December 28, 2024 Siobhan Rucker , APRNOther ProviderActiveStart: December 28, 2024 Aislinn Maria , APRNOther ProviderActiveStart: December 28, 2024 Los Calderon MDOther ProviderActiveStart: December 28, 2024 Live Grajeda MDOther ProviderActiveStart: December 28, 2024 Doron Diaz DOOther ProviderActiveStart: December 28, 2024 Kia Garg DOOther ProviderActiveStart: December 28, 2024 Wolfgang Resendiz MDOther ProviderActiveStart: December 28, 2024 India Haley MDOther ProviderActiveStart: December 28, 2024 Lisa Sotelo , APRNOther ProviderActiveStart: December 28, 2024 Magnolia Pierce MDOther ProviderActiveStart: December 28, 2024 Laurent Jain MDOther ProviderActiveStart: December 28, 2024 Sotero Mijares MDOther ProviderActiveStart: December 28, 2024 Nav Harmon MDOther ProviderActiveStart: December 28, 2024 Dano Monson MDOther ProviderActiveStart: December 28, 2024 Aria Schaffer , APRNOther ProviderActiveStart: December 28, 2024 Alvina Ch , APRNOther ProviderActiveStart: December 28, 2024 Aura Kay RNOther ProviderActiveStart: December 28, 2024 Winsome Goff MDOther ProviderActiveStart: December 28, 2024 Judy Macias NP-COther ProviderActiveStart: December 28, 2024 Zahida Flowers MDAttending Provider, Other ProviderActiveStart: December 28, 2024 Kaitlynn Emanuel MDOther ProviderActiveStart: December 28, 2024 Team Status: Active Member Role Status Dates Yas Linda DO Primary Care Provider Active Start: December 28, 2024 Sotero Black MDAdmit Provider, Attending Provider, Other ProviderActiveStart: December 28, 2024 Noemy Bates , CAROLOther ProviderActiveStart: December 28, 2024 Carolynn Jacobs , CAROLOther ProviderActiveStart: December 28, 2024 Gretel Kirkland , CAROLOther ProviderActiveStart: December 28, 2024 Merissa Balbuena RNOther ProviderActiveStart: December 28, 2024 Pati Brice RNOther ProviderActiveStart: December 28, 2024 Vicky Jasso MDOther ProviderActiveStart: December 28, 2024 Kofi Bustamante DOOther ProviderActiveStart: December 28, 2024 Mario Salazar MDOther ProviderActiveStart: December 28, 2024 Rachid Adhikari DOOther ProviderActiveStart: December 28, 2024 Yassine De León MDOther ProviderActiveStart: December 28, 2024 Sudha Sood MDOther ProviderActiveStart: December 28, 2024 Micah Curry DOOther ProviderActiveStart: December 28, 2024 Nav Peterson MDOther ProviderActiveStart: December 28, 2024 Zoie Field , APRNOther ProviderActiveStart: December 28, 2024 Jaye Jorgensen MDOther ProviderActiveStart: December 28, 2024 Augustine Bishop MDOther ProviderActiveStart: December 28, 2024 Jan Prasad MDOther ProviderActiveStart: December 28, 2024 Shannan Valentin MDOther ProviderActiveStart: December 28, 2024 Micah Lyn DOOther ProviderActiveStart: December 28, 2024 Elliott Cole MDOther ProviderActiveStart: December 28, 2024 Yaron Devi MDOther ProviderActiveStart: December 28, 2024 Candi Stone , 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-COther ProviderActiveStart: December 28, 2024 Matthew Grey , APRNOther ProviderActiveStart: December 28, 2024 Kuldeep See MDOther ProviderActiveStart: December 28, 2024 Kings Goncalves MDOther ProviderActiveStart: December 28, 2024 Eloy Resendiz MDOther ProviderActiveStart: December 28, 2024 Jon Cowan MDOther ProviderActiveStart: December 28, 2024 Elias Fermin MDOther ProviderActiveStart: December 28, 2024 Mirian Calvo DOOther ProviderActiveStart: December 28, 2024 Vish Bajwa , DOOther ProviderActiveStart: December 28, 2024 Krysten Mcclelland , APRNOther ProviderActiveStart: December 28, 2024 Emile Reynolds DOOther ProviderActiveStart: December 28, 2024 Carole Burden MDOther ProviderActiveStart: December 28, 2024 Siobhan Rucker , APRNOther ProviderActiveStart: December 28, 2024 Aislinn Maria , APRNOther ProviderActiveStart: December 28, 2024 Los Calderon MDOther ProviderActiveStart: December 28, 2024 Live Grajeda MDOther ProviderActiveStart: December 28, 2024 Doron Diaz , DOOther ProviderActiveStart: December 28, 2024 Kia Forest , DOOther ProviderActiveStart: December 28, 2024 Wolfgang Resendiz MDOther ProviderActiveStart: December 28, 2024 India Haley MDOther ProviderActiveStart: December 28, 2024 Lisa Sotelo , APRNOther ProviderActiveStart: December 28, 2024 Magnolia Pierce MDOther ProviderActiveStart: December 28, 2024 Laurent Jain MDOther ProviderActiveStart: December 28, 2024 Sotero Mijares MDOther ProviderActiveStart: December 28, 2024 Nav Harmon MDOther ProviderActiveStart: December 28, 2024 Dano Monson MDOther ProviderActiveStart: December 28, 2024 Aria Schaffer , APRNOther ProviderActiveStart: December 28, 2024 Alvina Ch , APRNOther ProviderActiveStart: December 28, 2024 Aura Kay RNOther ProviderActiveStart: December 28, 2024 Winsome Goff MDOther ProviderActiveStart: December 28, 2024 Judy Macias NP-COther ProviderActiveStart: December 28, 2024 Zahida Flowers MDOther ProviderActiveStart: December 28, 2024 Kaitlynn Emanuel MDOther ProviderActiveStart: December 28, 2024 Team Status: Active Member Role Status Dates Yas Linda DO Primary Care Provider Active Start: January 03, 2025 Aspen Abdi Provider, Other ProviderActiveStart: January 03, 2025 Noemy Bates , CAROLOther ProviderActiveStart: January 03, 2025 Carolynn Jacobs , CAROLOther ProviderActiveStart: January 03, 2025 Gretel Kirkland , CAROLOther ProviderActiveStart: January 03, 2025 Merissa Balbuena RNOther ProviderActiveStart: January 03, 2025 Pati Brice RNOther ProviderActiveStart: January 03, 2025 Vicky Jasso MDOther ProviderActiveStart: January 03, 2025 Kofi Bustamante , DOOther ProviderActiveStart: January 03, 2025 Mario Salazar MDOther ProviderActiveStart: January 03, 2025 aRchid Adhikari , DOOther ProviderActiveStart: January 03, 2025 Yassine De León MDOther ProviderActiveStart: January 03, 2025 Sudha Sood MDOther ProviderActiveStart: January 03, 2025 Micah Curry , DOOther ProviderActiveStart: January 03, 2025 Nav Peterson MDOther ProviderActiveStart: January 03, 2025 Zoie Field , APRNOther ProviderActiveStart: January 03, 2025 Jaye Jorgensen MDOther ProviderActiveStart: January 03, 2025 Augustine Bishop MDOther ProviderActiveStart: January 03, 2025 Jan Prasad MDOther ProviderActiveStart: January 03, 2025 Shannan Valentin MDOther ProviderActiveStart: January 03, 2025 Micah Lyn , DOOther ProviderActiveStart: January 03, 2025 Elliott Cole MDOther ProviderActiveStart: January 03, 2025 Yaron Devi MDOther ProviderActiveStart: January 03, 2025 Candi Stone , 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-COther ProviderActiveStart: January 03, 2025 Matthew Grey , APRNOther ProviderActiveStart: January 03, 2025 Kuldeep See MDOther ProviderActiveStart: January 03, 2025 Kings Goncalves MDOther ProviderActiveStart: January 03, 2025 Eloy Resendiz MDOther ProviderActiveStart: January 03, 2025 Jon Cowan MDOther ProviderActiveStart: January 03, 2025 Elias Fermin MDOther ProviderActiveStart: January 03, 2025 Mirian Calvo DOOther ProviderActiveStart: January 03, 2025 Vish Bajwa DOOther ProviderActiveStart: January 03, 2025 Krysten Mcclelland , APRNOther ProviderActiveStart: January 03, 2025 Emile Reynolds , DOOther ProviderActiveStart: January 03, 2025 Carole Burden MDOther ProviderActiveStart: January 03, 2025 Siobhan Rucker , APRNOther ProviderActiveStart: January 03, 2025 Aislinn Maria , APRNOther ProviderActiveStart: January 03, 2025 Los Calderon MDOther ProviderActiveStart: January 03, 2025 Live Grajeda MDOther ProviderActiveStart: January 03, 2025 Doron Diaz , DOOther ProviderActiveStart: January 03, 2025 Kia Garg , DOOther ProviderActiveStart: January 03, 2025 Wolfgang Resendiz MDOther ProviderActiveStart: January 03, 2025 India Haley MDOther ProviderActiveStart: January 03, 2025 Lisa Sotelo APRNOther ProviderActiveStart: January 03, 2025 Magnolia Pierce MDOther ProviderActiveStart: January 03, 2025 Laurent Jain MDOther ProviderActiveStart: January 03, 2025 Sotero Mijares MDOther ProviderActiveStart: January 03, 2025 Nav Harmon MDOther ProviderActiveStart: January 03, 2025 Dano Monson MDOther ProviderActiveStart: January 03, 2025 Aria Schaffer , APRNOther ProviderActiveStart: January 03, 2025 Alvina Ch , APRNOther ProviderActiveStart: January 03, 2025 Aura Kay RNOther ProviderActiveStart: January 03, 2025 Winsome Goff MDOther ProviderActiveStart: January 03, 2025 Judy Macias NP-COther ProviderActiveStart: January 03, 2025 Zahida Flowers MDOther ProviderActiveStart: January 03, 2025 Kaitlynn Emanuel MDOther ProviderActiveStart: January 03, 2025 Ramesh Rascon MDOther ProviderActiveStart: January 03, 2025 Jerry Velasquez APRNOther ProviderActiveStart: January 03, 2025 Son Nicole MDAttending Provider, Other ProviderActiveStart: January 03, 2025 Erica Tian , DOOther ProviderActiveStart: January 03, 2025 Gilles Kirkland APRNOther ProviderActiveStart: January 03, 2025 Team Status: Active Member Role Status Dates Yas Linda DO Primary Care Provider Active Start: January 04, 2025 Sotero Black , MDAdmit Provider, Other ProviderActiveStart: January 04, 2025 Noemy Bates , RNOther ProviderActiveStart: January 04, 2025 Carolynn Jacobs , RNOther ProviderActiveStart: January 04, 2025 Gretel Kirkland , RNOther ProviderActiveStart: January 04, 2025 Merissa Balbuena , CAROLOther ProviderActiveStart: January 04, 2025 Pati Brice , CAROLOther ProviderActiveStart: January 04, 2025 Vicky Jasso MDOther ProviderActiveStart: January 04, 2025 Kofi Bustamante , DOOther ProviderActiveStart: January 04, 2025 Mario Salazar MDOther ProviderActiveStart: January 04, 2025 Rachid Adhikari , DOOther ProviderActiveStart: January 04, 2025 Yassine De León MDOther ProviderActiveStart: January 04, 2025 Sudha Sood MDOther ProviderActiveStart: January 04, 2025 Micah Curry DOOther ProviderActiveStart: January 04, 2025 Nav Peterson MDOther ProviderActiveStart: January 04, 2025 Zoie Field , APRNOther ProviderActiveStart: January 04, 2025 Jaye Jorgensen MDOther ProviderActiveStart: January 04, 2025 Augustine Bishop MDOther ProviderActiveStart: January 04, 2025 Jan Prasad MDOther ProviderActiveStart: January 04, 2025 Shannan Valentin MDOther ProviderActiveStart: January 04, 2025 Micah Lyn DOOther ProviderActiveStart: January 04, 2025 Elliott Cole MDOther ProviderActiveStart: January 04, 2025 Yaron Devi MDOther ProviderActiveStart: January 04, 2025 Candi Stone , 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-COther ProviderActiveStart: January 04, 2025 Matthew Grey , APRNOther ProviderActiveStart: January 04, 2025 Kuldeep See MDOther ProviderActiveStart: January 04, 2025 Kings Goncalves MDOther ProviderActiveStart: January 04, 2025 Eloy Resendiz MDOther ProviderActiveStart: January 04, 2025 Jon Cowan MDOther ProviderActiveStart: January 04, 2025 Elias Fermin MDOther ProviderActiveStart: January 04, 2025 Mirian Calvo , DOOther ProviderActiveStart: January 04, 2025 Vish Bajwa , DOOther ProviderActiveStart: January 04, 2025 Krysten Mcclelland , APRNOther ProviderActiveStart: January 04, 2025 Emile Reynolds , DOOther ProviderActiveStart: January 04, 2025 Carole Burden MDOther ProviderActiveStart: January 04, 2025 Siobhan Rucker , APRNOther ProviderActiveStart: January 04, 2025 Aislinn Maria , APRNOther ProviderActiveStart: January 04, 2025 Los Calderon MDOther ProviderActiveStart: January 04, 2025 Live Grajeda MDOther ProviderActiveStart: January 04, 2025 Doron Diaz , DOOther ProviderActiveStart: January 04, 2025 Kia Garg , DOOther ProviderActiveStart: January 04, 2025 Wolfgang Resendiz MDOther ProviderActiveStart: January 04, 2025 India Haley MDOther ProviderActiveStart: January 04, 2025 Lisa Sotelo , APRNOther ProviderActiveStart: January 04, 2025 Magnolia Pierce MDOther ProviderActiveStart: January 04, 2025 Laurent Jain MDOther ProviderActiveStart: January 04, 2025 Sotero Mijares MDOther ProviderActiveStart: January 04, 2025 Nav Harmon MDOther ProviderActiveStart: January 04, 2025 Dano Monson MDOther ProviderActiveStart: January 04, 2025 Aria Schaffer , APRNOther ProviderActiveStart: January 04, 2025 Alvina Ch , APRNOther ProviderActiveStart: January 04, 2025 Aura Kay , RNOther ProviderActiveStart: January 04, 2025 Winsome Goff , MDAttending Provider, Other ProviderActiveStart: January 04, 2025 Judy Macias NP-COther ProviderActiveStart: January 04, 2025 Zahida Flowers MDOther ProviderActiveStart: January 04, 2025 Kaitlynn Emanuel MDOther ProviderActiveStart: January 04, 2025 Ramesh Rascon MDOther ProviderActiveStart: January 04, 2025 Jerry Velasquez , APRNOther ProviderActiveStart: January 04, 2025 Son Nicole MDOther ProviderActiveStart: January 04, 2025 Erica Tian , DOOther ProviderActiveStart: January 04, 2025 Gilles Kirkland , APRNOther ProviderActiveStart: January 04, 2025 Team Status: Active Member Role Status Dates Yas Linda DO Primary Care Provider Active Start: January 06, 2025 Soetro Black , MDAdmit Provider, Other ProviderActiveStart: January 06, 2025 Noemy Bates , RNOther ProviderActiveStart: January 06, 2025 Carolynn Jacobs , RNOther ProviderActiveStart: January 06, 2025 Gretel Kirkland , CAROLOther ProviderActiveStart: January 06, 2025 Merissa Balbuena , RNOther ProviderActiveStart: January 06, 2025 Pati Brice , CAROLOther ProviderActiveStart: January 06, 2025 Vicky Jasso MDOther ProviderActiveStart: January 06, 2025 Kofi Bustamante , DOOther ProviderActiveStart: January 06, 2025 Mario Salazar MDOther ProviderActiveStart: January 06, 2025 Rachid Adhikari , DOOther ProviderActiveStart: January 06, 2025 Yassine De León MDOther ProviderActiveStart: January 06, 2025 Sudha Sood MDOther ProviderActiveStart: January 06, 2025 Micah Curry , DOOther ProviderActiveStart: January 06, 2025 Nav Peterson MDOther ProviderActiveStart: January 06, 2025 Zoie Field , APRNOther ProviderActiveStart: January 06, 2025 Jaye Jorgensen MDOther ProviderActiveStart: January 06, 2025 Augustine Bishop MDOther ProviderActiveStart: January 06, 2025 Jan Prasad MDOther ProviderActiveStart: January 06, 2025 Shannan Valentin MDOther ProviderActiveStart: January 06, 2025 Micah Lyn DOOther ProviderActiveStart: January 06, 2025 Elliott Cole MDOther ProviderActiveStart: January 06, 2025 Yaron Devi MDOther ProviderActiveStart: January 06, 2025 Candi Stone , 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-COther ProviderActiveStart: January 06, 2025 Matthew Grey , APRNOther ProviderActiveStart: January 06, 2025 Kuldeep See MDOther ProviderActiveStart: January 06, 2025 Kings Goncalves MDOther ProviderActiveStart: January 06, 2025 Eloy Resendiz MDOther ProviderActiveStart: January 06, 2025 Jon Cowan MDOther ProviderActiveStart: January 06, 2025 Elias Fermin MDOther ProviderActiveStart: January 06, 2025 Mirian Calvo , DOOther ProviderActiveStart: January 06, 2025 Vish Bajwa , DOOther ProviderActiveStart: January 06, 2025 Krysten Mcclelland , APRNOther ProviderActiveStart: January 06, 2025 Emile Reynolds DOOther ProviderActiveStart: January 06, 2025 Carole Burden MDOther ProviderActiveStart: January 06, 2025 Siobhan Rucker , APRNOther ProviderActiveStart: January 06, 2025 Aislinn Maria , APRNOther ProviderActiveStart: January 06, 2025 Los Calderon MDOther ProviderActiveStart: January 06, 2025 Live Grajeda MDOther ProviderActiveStart: January 06, 2025 Doron Diaz , DOOther ProviderActiveStart: January 06, 2025 Kia Garg , DOOther ProviderActiveStart: January 06, 2025 Wolfgang Resendiz MDOther ProviderActiveStart: January 06, 2025 India Haley MDOther ProviderActiveStart: January 06, 2025 Lisa Sotelo , APRNOther ProviderActiveStart: January 06, 2025 Magnolia Pierce MDOther ProviderActiveStart: January 06, 2025 Laurent Jain MDOther ProviderActiveStart: January 06, 2025 Sotero Mijares MDOther ProviderActiveStart: January 06, 2025 Nav Harmon MDOther ProviderActiveStart: January 06, 2025 Dano Monson MDOther ProviderActiveStart: January 06, 2025 Aria Schaffer , APRNOther ProviderActiveStart: January 06, 2025 Alvina Ch , APRNOther ProviderActiveStart: January 06, 2025 Aura Kay RNOther ProviderActiveStart: January 06, 2025 Winsome Goff MDOther ProviderActiveStart: January 06, 2025 Judy Macias NP-COther ProviderActiveStart: January 06, 2025 Zahida Flowers MDOther ProviderActiveStart: January 06, 2025 Kaitlynn Emanuel MDOther ProviderActiveStart: January 06, 2025 Ramesh Rascon MDOther ProviderActiveStart: January 06, 2025 Jerry Velasquez , APRNOther ProviderActiveStart: January 06, 2025 Son Nicole MDOther ProviderActiveStart: January 06, 2025 Erica Tian DOOther ProviderActiveStart: January 06, 2025 Gilles Kirkland , APRNOther ProviderActiveStart: January 06, 2025 Brenda Driscoll , APRNAttending ProviderActiveStart: January 06, 2025 Team Status: Active Member Role Status Dates Yas Linda DO Primary Care Provider Active Start: January 10, 2025 Erica Dalton CMAAttending ProviderActiveStart: January 10, 2025 Team Status: Inactive Member Role Status Dates Walker Soria MD Attending Provider Active Star t: January 14, 2025 End: January 14Alison Álvarez Care ProviderActiveStart: January 14, 2025 End: January 14, 2025 Team Status: Inactive Member Role Status Dates Yas Linda DO Primary Care Provider Active Start: January 14, 2025 End: January 14, 2025Walker Soria MDAttending ProviderActiveStart: January 14, 2025 End: January 14, 2025 Team Status: Inactive Member Role Status Dates Sotero Black MD Attending Provider Active Star t: January 16, 2025 End: January 16, 2025PHYSICIAN NO FAMILYPrimary Care ProviderActiveStart: January 16, 2025 End: January 16, 2025 Team Status: Inactive Member Role Status Dates Zahida Flowers MD Attending Provider Active Start : January 20, 2025 End: January 20enWALDO Carreonrijackelyny Care ProviderActiveStart: January 20, 2025 End: January 20, 2025 [...] Care Provider Active Start: February 24, 2025 PEARL Saraheferring ProviderActiveStart: February 24, 2025 Chivo Keller II, DOAttending ProviderActiveStart: February 24, 2025 Team Status: Active Member Role Status Dates Walker Soria MD Attending Provider Active Star t: February 25, 2025 Alison Lauren Care ProviderActiveStart: February 25, 2025 Team Status: Active Member Role Status Michelle Linda DO Primary Care Provide r, Attending Provider Active Start: February 01, 2024 Team Status: Active Member Role Status Michelle Linda DO Primary Care Provider Active Start: March 01, 2024 PEARL Sarahefviktoriyaing ProviderActiveStart: March 01, 2024 Chivo Keller II, DOAttending ProviderActiveStart: March 01, 2024 Team Status: Inactive Member Role Status Dates Yas Linda DO Primary Care Provider Active Start: March 01, 2024 End: March 01, 2024Chivo Keller II, DOAttending ProviderActiveStart: March 01, 2024 End: March 01, 2024 [...] DO Primary Care Provider Active Kalia Sánchez , MDReferring ProviderActiveChivo Keller II, DOAttending ProviderActive Team Status: Inactive Member Role Status Dates Yas Linda , DO Primary Care Provider Active Danuta Kelly 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-CAttending ProviderActive Team Status: Inactive Member Role Status Dates Yas Linda , DO Primary Care Provider Active Ramesh Rascon , MDAttending ProviderActiveTeam MemberRelationshipSpecialty Start DateEnd Date Yas Linda MD [address] [id number] PCP - GeneralInternal Pwoxtdul41/9/23Team MemberRelationshipSpecialtyStart Date End Date Yas Linda MD [address] [place] [address] PCP - GeneralInternal Wocstksy93/9/23Team MemberRelationshipSpecialtyStart Date End Date Yas Linda MD [address] [place] [address] PCP - GeneralInternal Eghoilib74/9/23Team MemberRelationshipSpecialtyStart Date End Date Yas Linda DO [address] [place] [address] PCP - GeneralInternal Medicine11/11/21Team MemberRelationshipSpecialtyStart Date End Date Yas Linda DO [address] [place] [address] PCP - [facility]11/11/21Team MemberRelationshipSpecialtyStart Date End Date Yas Linda DO [address] [place] [address] PCP - [facility]11/11/21Team MemberRelationshipSpecialtyStart Date End Date Yas Linda DO PCP - [facility]11/11/21 Team Status: Active Member Role Status Dates Yas Linda DO Primary Care Provider Active Start: October 11, 2024 Trang Montoya MDAttending ProviderActiveStart: October 11, 2024 Team Status: Active Member Role Status Dates Yas Linda DO Primary Care Provide r, Attending Provider Active Start: November 07, 2024 Team Status: Active Member Role Status Dates Yas Linda DO Primary Care Provider Active Start: December 27, 2024 Sandra Abdiit Provider, Attending ProviderActiveStart: December 27, 2024 Team Status: Active Member Role Status Dates Yas Linda DO Primary Care Provider Active Start: December 30, 2024 Sotero Black MDAdmfco Provider, Attending Provider, Other ProviderActiveStart: December 30, 2024 Noemy Bates , CAROLOther ProviderActiveStart: December 30, 2024 Carolynn Jacobs , CAROLOther ProviderActiveStart: December 30, 2024 Gretel Kirkland , CAROLOther ProviderActiveStart: December 30, 2024 Merissa Balbuena , CAROLOther ProviderActiveStart: December 30, 2024 Pati Brice , CAROLOther ProviderActiveStart: December 30, 2024 Vicky Jasso MDOther ProviderActiveStart: December 30, 2024 Kofi Bustamante , DOOther ProviderActiveStart: December 30, 2024 Mario Salazar MDOther ProviderActiveStart: December 30, 2024 Rachid Adhikari DOOther ProviderActiveStart: December 30, 2024 Yassine De León MDOther ProviderActiveStart: December 30, 2024 Sudha Sood MDOther ProviderActiveStart: December 30, 2024 Micah Curry DOOther ProviderActiveStart: December 30, 2024 Nav Peterson MDOther ProviderActiveStart: December 30, 2024 Zoie Field , APRNOther ProviderActiveStart: December 30, 2024 Jaye Jorgensen MDOther ProviderActiveStart: December 30, 2024 Augustine Bishop MDOther ProviderActiveStart: December 30, 2024 Jan Prasad MDOther ProviderActiveStart: December 30, 2024 Shannan Valentin MDOther ProviderActiveStart: December 30, 2024 Micah Lyn DOOther ProviderActiveStart: December 30, 2024 Elliott Cole MDOther ProviderActiveStart: December 30, 2024 Yaron Devi MDOther ProviderActiveStart: December 30, 2024 Candi Stone , 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-COther ProviderActiveStart: December 30, 2024 Matthew Grey , APRNOther ProviderActiveStart: December 30, 2024 Kuldeep See MDOther ProviderActiveStart: December 30, 2024 Kings Goncalves MDOther ProviderActiveStart: December 30, 2024 Eloy Resendiz MDOther ProviderActiveStart: December 30, 2024 Jon Cowan MDOther ProviderActiveStart: December 30, 2024 Elias Fermin MDOther ProviderActiveStart: December 30, 2024 Mirian Calvo DOOther ProviderActiveStart: December 30, 2024 Vish Bajwa , DOOther ProviderActiveStart: December 30, 2024 Krysten Mcclelland , APRNOther ProviderActiveStart: December 30, 2024 Emile Reynolds , DOOther ProviderActiveStart: December 30, 2024 Carole Burden MDOther ProviderActiveStart: December 30, 2024 Siobhan Rucker , APRNOther ProviderActiveStart: December 30, 2024 Aislinn Maria , APRNOther ProviderActiveStart: December 30, 2024 Los Calderon MDOther ProviderActiveStart: December 30, 2024 Live Grajeda MDOther ProviderActiveStart: December 30, 2024 Doron Diaz , DOOther ProviderActiveStart: December 30, 2024 Kia Garg , DOOther ProviderActiveStart: December 30, 2024 Wolfgang Resendiz MDOther ProviderActiveStart: December 30, 2024 India Haley MDOther ProviderActiveStart: December 30, 2024 Lisa Sotelo , APRNOther ProviderActiveStart: December 30, 2024 Magnolia Pierce MDOther ProviderActiveStart: December 30, 2024 Laurent Jain MDOther ProviderActiveStart: December 30, 2024 Sotero Mijares MDOther ProviderActiveStart: December 30, 2024 Nav Harmon MDOther ProviderActiveStart: December 30, 2024 Dano Monson MDOther ProviderActiveStart: December 30, 2024 Aria Schaffer , APRNOther ProviderActiveStart: December 30, 2024 Alvina Ch , APRNOther ProviderActiveStart: December 30, 2024 Aura Kay RNOther ProviderActiveStart: December 30, 2024 Winsome Goff MDOther ProviderActiveStart: December 30, 2024 Judy Macias NP-COther ProviderActiveStart: December 30, 2024 Zahida Flowers MDOther ProviderActiveStart: December 30, 2024 Kaitlynn Emanuel MDOther ProviderActiveStart: December 30, 2024 Team Status: Active Member Role Status Dates Walker Soria MD Attending Provider Active Star t: January 14, 2025 Alison Lauren Care ProviderActiveStart: January 14, 2025 Team Status: Inactive Member Role Status Dates Sotero Black MD Attending Provider Active Star t: January 16, 2025 End: January 16, 2025Team MemberRelationshipSpecialtyStart DateEnd Date Yas Linda DO PCP - GeneralInternal Medicine11/11/21Team MemberRelationshipSpecialtyStart Date End Date Yas Linda, DO [address] [place] [facility] [place] [facility] [place] [address] PCP - GeneralInternal Medicine02/18/25Team MemberRelationshipSpecialtyStart Date End Date Yas Linda, DO [address] [place] [facility] [place] [address] PCP - GeneralInternal Medicine02/18/25Team MemberRelationshipSpecialtyStart Date End Date Yas Linda, DO [address] [place] [facility] [place] [id number] PCP - GeneralInternal Medicine02/18/25Team MemberRelationshipSpecialtyStart Date End Date Yas Linda, DO [address] [place] [facility] [place] [facility] [place] [address] PCP - GeneralInternal Medicine02/18/25Team MemberRelationshipSpecialtyStart Date End Date Yas Linda, DO [address] [place] [facility] [place] [facility] [place] [address] PCP - GeneralInternal Medicine02/18/25Team MemberRelationshipSpecialtyStart Date End Date Yas Linda, DO [address] [place] [facility] [place] [facility] [place] [phone] PCP - GeneralInternal Medicine02/18/25Team MemberRelationshipSpecialtyStart Date End Date Yas Linda, DO [address] [place] [facility] [place] [address] PCP - GeneralInternal Medicine02/18/25Team MemberRelationshipSpecialtyStart Date End Date Yas Linda DO [address] [place] [facility] [place] [facility] [place] [address] PCP - GeneralInternal Medicine02/18/25Team MemberRelationshipSpecialtyStart Date End Date Yas Linda DO [address] [place] [facility] [place] [address] PCP - GeneralInternal Medicine02/18/25 Team Status: Inactive Member Role Status Dates Yas Linda DO Primary Care Provide r, Attending Provider Active Start: March 25, 2025 End: March 25, 2025Team MemberRelationshipSpecialtyStart DateEnd Date Yas Linda DO [address] [place] [facility] [place] [facility] [place] [address] PCP - GeneralInternal Medicine02/18/25Team MemberRelationshipSpecialtyStart Date End Date Yas Linda DO [address] [place] [facility] [place] [facility] [place] [address] PCP - GeneralInternal Medicine02/18/25Team MemberRelationshipSpecialtyStart Date End Date Yas Linda DO [address] [place] [facility] [place] [facility] [place] [address] PCP - GeneralInternal Medicine02/18/25Team MemberRelationshipSpecialtyStart Date End Date Yas Linda DO [address] [place] [facility] [place] [address] PCP - GeneralInternal Medicine02/18/25Team MemberRelationshipSpecialtyStart Date End Date Yas Linda DO [address] [place] [facility] [place] [address] PCP - GeneralInternal Medicine02/18/25Team MemberRelationshipSpecialtyStart Date End Date Yas Linda DO [address] [place] [facility] [place] [address] PCP - GeneralInternal Medicine02/18/25Team MemberRelationshipSpecialtyStart Date End Date Yas Linda DO [address] [place] [facility] [place] [facility] [place] [address] PCP - GeneralInternal Medicine02/18/25Team MemberRelationshipSpecialtyStart Date End Date Yas Linda DO [address] [place] [facility] [place] [address] PCP - GeneralInternal Medicine02/18/25Team MemberRelationshipSpecialtyStart Date End Date Yas Linda DO [address] [place] [facility] [place] [facility] [place] [address] PCP - GeneralInternal Medicine02/18/25Team MemberRelationshipSpecialtyStart Date End Date Yas Linda DO [address] [place] [facility] [place] [address] PCP - GeneralInternal Medicine02/18/25 Team Status: Inactive Member Role Status Dates Yas Linda DO Primary Care Provider Active Start: January 28, 2025 End: January 28rick Linda DOAttending ProviderActiveStart: January 28, 2025 End: January 28, 2025Team MemberRelationshipSpecialtyStart DateEnd Date Yas Linda, DO [address] [place] [facility] [place] [address] PCP - GeneralInternal Medicine02/18/25Team MemberRelationshipSpecialtyStart Date End Date Yas Linda, DO [address] [place] [facility] [place] [address] PCP - GeneralInternal Medicine02/18/25Team MemberRelationshipSpecialtyStart Date End Date Yas Linda DO [address] [place] [facility] [place] [address] PCP - GeneralInternal Medicine02/18/25Team MemberRelationshipSpecialtyStart Date End Date Yas Linda DO [address] [place] [facility] [place] [phone] PCP - GeneralInternal Medicine02/18/25Team MemberRelationshipSpecialtyStart Date End Date Yas Linda DO [address] [place] [facility] [place] [address] PCP - GeneralInternal Medicine02/18/25Team MemberRelationshipSpecialtyStart Date End Date Yas Linda, DO [address] [place] [facility] [place] [address] PCP - GeneralInternal Medicine02/18/25Team MemberRelationshipSpecialtyStart Date End Date Yas Linda DO [address] [place] [facility] [place] [address] PCP - GeneralInternal Medicine02/18/25Team MemberRelationshipSpecialtyStart Date End Date Yas Linda, DO [address] [place] [facility] [place] [address] PCP - GeneralInternal Medicine02/18/25Team MemberRelationshipSpecialtyStart Date End Date Yas Linda, DO [address] [place] [facility] [place] [address] PCP - GeneralInternal Medicine02/18/25am MemberRelationshipSpecialtyStart Date End Date Yas Linda, DO [address] [place] [facility] [place] [address] PCP - GeneralInternal Medicine02/18/25Team MemberRelationshipSpecialtyStart Date End Date Yas Linda, DO [address] [place] [facility] [place] [address] PCP - GeneralInternal Medicine02/18/25Team MemberRelationshipSpecialtyStart Date End Date Yas Linda, DO [address] [place] [facility] [place] [address] PCP - GeneralInternal Medicine02/18/25Team MemberRelationshipSpecialtyStart Date End Date Yas Linda, DO [address] [place] [facility] [place] [address] PCP - GeneralInternal Medicine02/18/25Team MemberRelationshipSpecialtyStart Date End Date aYs Linda, DO [address] [facility] [place] [address] PCP - GeneralInternal Medicine02/18/25 Team Status: Active Member Role Status Dates Yas Linda DO Primary Care Provider Active Start: July 21, 2025 Erica Dalton CMAAttcindy ProviderActiveStart: July 21, 2025 Team Status: Inactive Member Role Status Dates Yas Linda DO Primary Care Provider Active Start: July 22, 2025 End: July 22luzgrady Linda , DOAttending ProviderActiveStart: July 22, 2025 End: July 22, 2025 Goals (unrecognized section and content) Goals [...] FOR VISIT (unrecogniz ed section and content) ReasonCommentsDM Foot CarePt is here today requesting nail careBS: 117 A1C: ?LV Dr. Linda 05-05-2025SS: 11-12ReasonCommentsDM Foot CareJerry Oliver 84yo New Patient present for diabetic nail care. Patient states it is difficult for him to reach his nail to trim. Patient relates his Diabetes is diet controlled at this time. A1C 6.[address] Linda 01/30/2025. SS 12.5ReasonCommentsSleep Apnea Thyroid resultsRepeat lab workLab Results4 month [...] BE BASED ON THE PRIMARY CLINICAL RECORDS. [facility] [employer] [facility] provides no warranty or guarantee of the accuracy or completeness of information in this document.
[2025-08-13 11:56] LABS: Protein Creatinine Ratio Urine 1.48; Total Protein Urine Random 30.5 mg/dL (<=11.9)
[2025-08-13 14:13] LABS: Albumin Level 3.8 g/dL (3.4-5.0); Anion Gap 13.0; Blood Urea Nitrogen 50.0 mg/dL (7.0-18.0); Calcium 9.1 mg/dL (8.5-10.1); Carbon Dioxide 32.8 mmol/L (21.0-32.0); Chloride 101 mmol/L (98-107); Estimated GFR (African America 30 (>=60 mL/min/1.73m^2); Estimated GFR (Non-African Ame 24 (>=60 mL/min/1.73m^2); Glucose 85 mg/dL (74-106); Magnesium 2.4 mg/dL (1.8-2.4); Potassium 3.8 mmol/L (3.5-5.1); Sodium 143 mmol/L (136-145); Uric Acid 7.9 mg/dL (3.5-7.2)
[2025-08-13 15:14] LABS: Ferritin 350.0 ng/mL (26.0-388.0)
== END 2025-08-13 10:03 | disposition home or self-care (01) ==
LOC: LAB 10:02
PROVIDERS: PCP Internal Medicine; Visit Provider Internal Medicine
DX: N25.81 Secondary hyperparathyroidism of renal origin (principal); N18.9 Chronic kidney disease, unspecified; D63.1 Anemia in chronic kidney disease; E11.22 Type 2 diabetes mellitus with diabetic chronic kidney disease; I50.22 Chronic systolic (congestive) heart failure
CPT/HCPCS: 36415; 80069; 81001; 82306; 82570; 82728; 83540; 83550; 83735; 83970; 84156; 84550; 85027

== ENCOUNTER 2025-09-16 11:24 | Outpatient (OUT) | payer MEDICARE, SELFPAY ==
--- OUTSIDE RECORDS SUMMARY | 2025-09-16 10:45 | XMS_ITS | Encounter Summary ---
Author Organization [facility] Address [address] [place] [address] Care Team Providers Care Equine Pharmacology Technician Name Role Phone Arnie Lund DO Primary Care Provider Encounter Details DateTypeDepartmentCare Team (Latest Contact Info)Qapbautvaxm06/02/2025 10:45 AM ESTAncillary Procedure [facility] [place] [address] [place] [address] Encounter for implantable defibrillator reprogramming or check Social History Tobacco UseTypesPacks/DayYears UsedDateSmoking Tobacco: FormerCigarettesQuit: 1982Smokeless Tobacco: NeverAlcohol UseStandard Drinks/WeekCommentsYes0 (1 standard drink = 0.6 oz pure alcohol)OCCASIONALPHQ-2AnswerDate RecordedPatient Health Questionnaire-2 Whpwd335UT Safety & EnvironmentAnswerDate RecordedFear of Current or Ex-PartnerNot on file12/07/2023Emotionally AbusedNot on file12/07/2023hysically AbusedNot on file12/07/2023Sexually AbusedNot on file12/07/2023hysically or Sexually AbusedNot on 12/07/2023Sex and Gender InformationValueDate RecordedSex Assigned at YfcsgIwmj70/28/2023 6:32 AM EDT Legal TayIdip3504/13/2022 11:44 PM EDTGender QtfqlyfkLket22/28/2023 6:32 AM EDT Sexual OrientationHeterosexual or Zquajybl47/28/2023 6:32 AM EDTdocumented as of this encounter Plan of Treatment DateTypeDepartmentCare Team (Latest Contact Info)Qbwqrjasjov44/02/2025 11:30 AM ESTOffice Visit [facility] [address] [place] [address] Mariusz Montoya MD [address] [place] [address] Paroxysmal atrial fibrillation (CMS/HCC) (Primary Dx)09/25/2025 8:30 AM EST Hospital Encounter [facility] [address] [place] [address] Mariusz Montoya MD [address] [place] [address] Paroxysmal atrial fibrillation (CMS/HCC)09/25/2025 8:30 AM EST - 09/25/2025 12:00 PM ESTSurgery [facility] [address] [place] [address] Mariusz Montoya MD [address] [place] [address] Ablation a-fib w/ pvi [[id number] (CPT??)]documented as of this encounter Visit Diagnoses Diagnosis A-fib (CMS/HCC)- Primary Atrial fibrillation Paroxysmal atrial fibrillation (CMS/HCC) Atrial fibrillation Encounter for implantable defibrillator reprogramming or check Fitting and adjustment of automatic implantable cardiac defibrillator Paroxysmal atrial fibrillation (CMS/HCC)- Primary Atrial fibrillation Paroxysmal atrial fibrillation (CMS/HCC) Atrial fibrillation documented in this encounter Care Teams Team MemberRelationshipSpecialtyStart DateEnd Date Arnie Lund DO [address] [facility] [place] [address] PCP - General06/07/22documented as of this encounter
--- OUTSIDE RECORDS SUMMARY | 2025-09-16 11:28 | XMS_ITS | Clinical Summary ---
Author Organization [facility] Healthcare Address [address] [place] [address] Care Team Providers Care Ethnology Professor Name Role Phone KevonArnie Primary Care Provider [phone] Allergies No known active allergies Medications MedicationSigDispense QuantityRefillsLast FilledStart DateEnd DateStatus Okaeutpqtjs-Gqeeriuog-Imudco (Trelegy Ellipta) 200-62.5-25 MCG/ACT aerosol powder InhaleActive [...] Take 200 mg by mouth in the morning.4Active furosemide (Lasix) 80 MG tablet 5Active Calcium [...] Problems ProblemNoted DateDiagnosed DateOSA (obstructive sleep apnea)07/08/2024 Tnufoigzigv39/23/2024rimary kwadtqvc37/23/2024 Encounters DateTypeDepartmentCare BaveHmoyrcixcuy56/12/2025 9:45 AM ESTProcedure Visit [facility] [address] [place] [address] Kole Batista DPM Onychomycosis (Primary Dx); Onychodystrophy; Diabetic polyneuropathy associated with type 2 diabetes mellitus (HCC)08/27/2025 Bamboo flowsheet [facility] [address] [place] [address] Kole Batista DPM 08/27/20255847Qnnafd55/10/1266Onaulv13/30/2025Telephone [facility] [address] [facility] [place] [address] Ghazala Marie MA from Last 3 Months Immunizations ImmunizationAdministration DatesNext DuePneumococcal [...] on fileLegal SexMale 12/28/2022 7:17 PM EDTGender IxjefdeiAszp46/03/2023 4:57 PM EDTSexual OrientationNot on file Last Filed Vital Signs Vital SignReadingTime TakenCommentsBlood Pyfzhibi167/7407/09/2024 10:33 AM EDT Nvsoj643007/09/2024 10:33 AM EDTTemperature--Respiratory Rate--Oxygen Saturation 93%07/09/2024 10:33 AM EDTInhaled Oxygen Concentration--Rnqfsk12.5 kg (195 lb) 08/27/2025 10:01 AM TOPPvhifu171.3 cm (5' 11 )08/27/2025 10:01 AM ESTBody Mass Index27. 10:01 AM EST Plan of Treatment DateTypeDepartmentCare Team (Latest Contact Info)Emuanhdgfyc94/16/2026 9:00 AM ESTProcedure Visit [facility] [address] [place] [address] Kole Batista, DPM [address] [place], [place] [address] Health MaintenanceDue DateLast DoneCommentsCOVID-19 Vaccine ( season) , 07/22/2024, 07/20/2023, Additional history exists Pneumococcal Vaccine: 65+ UznlfJcfrtkgeo93/11/2016, 08/02/2013, 07/16/2013 Influenza OstupcwAupikpkdq08/23/2025, 07/15/2024, 07/11/2023, Additional history exists Insurance Care Teams Team MemberRelationshipSpecialtyStart DateEnd Date Arnie Lund DO [address] [place] [address] PCP - GeneralInternal Medicine02/18/25
--- OUTSIDE RECORDS SUMMARY | 2025-09-16 11:28 | XMS_ITS | Encounter Summary ---
Author Organization [facility] Address [address] [place] [address] Care Team Providers Care Aerial Installer Name Role Phone Arnie Lund DO Primary Care Provider [phone] Encounter Details DateTypeDepartmentCare Team (Latest Contact Info)Cdrpzkjobfr54/25/2025Orders Only [facility] [address] [place] [address] Charissa Ortiz RN Paroxysmal atrial flutter (CMS/HCC) (Primary Dx) Social History Tobacco UseTypesPacks/DayYears UsedDateSmoking Tobacco: FormerCigarettesQuit: 1982Smokeless Tobacco: NeverAlcohol UseStandard Drinks/WeekCommentsYes0 (1 standard drink = 0.6 oz pure alcohol)OCCASIONALPHQ-2AnswerDate RecordedPatient Health Questionnaire-2 Mngcq674UT Safety & EnvironmentAnswerDate RecordedFear of Current or Ex-PartnerNot on 12/07/2023Emotionally AbusedNot on 12/07/2023hysically AbusedNot on 12/07/2023Sexually AbusedNot on 12/07/2023hysically or Sexually AbusedNot on 12/07/2023Sex and Gender InformationValueDate RecordedSex Assigned at RkpcwMzzd79/28/2023 6:32 AM EDT Legal OyhRlvj3504/13/2022 11:44 PM EDTGender JbvaepahHdon80/28/2023 6:32 AM EDT Sexual OrientationHeterosexual or Ednbhdnd60/28/2023 6:32 AM EDTdocumented as of this encounter Plan of Treatment DateTypeDepartmentCare Team (Latest Contact Info)Lhgotisqbhl20/02/2025 11:30 AM ESTOffice Visit [facility] [address] [place] [address] Mariusz Montoya MD [address] [place] [address] Paroxysmal atrial fibrillation (CMS/HCC) (Primary Dx)09/25/2025 8:30 AM EST Hospital Encounter [facility] [place] [facility] [address] [facility] [place] [address] Mariusz Montoya MD [address] [place] [address] Paroxysmal atrial fibrillation (CMS/HCC)09/25/2025 8:30 AM EST - 09/25/2025 12:00 PM ESTSurgery [facility] [place] [facility] [address] [place] [address] Mariusz Montoya MD [address] [place] [address] Ablation a-fib w/ pvi [[id number] (CPT??)]NameTypePriorityAssociated DiagnosesOrder ScheduleCBCLabRoutine Paroxysmal atrial flutter (CMS/HCC) Expected: 09/09/2025 (Approximate), Expires: 09/09/2026asic metabolic panelLab Routine Paroxysmal atrial flutter (CMS/HCC) Expected: 09/09/2025 (Approximate), Expires: 09/09/2026documented as of this encounter Visit Diagnoses Diagnosis A-fib (CMS/HCC)- Primary Atrial fibrillation Paroxysmal atrial fibrillation (CMS/HCC) Atrial fibrillation Paroxysmal atrial flutter (CMS/HCC)- Primary Paroxysmal atrial fibrillation (CMS/HCC)- Primary Atrial fibrillation Paroxysmal atrial fibrillation (CMS/HCC) Atrial fibrillation documented in this encounter Care Teams Team MemberRelationshipSpecialtyStart DateEnd Date Arnie Lund DO [address] [place] [address] [facility] - General06/07/22documented as of this encounter
--- OUTSIDE RECORDS SUMMARY | 2025-09-16 11:28 | XMS_ITS | Clinical Summary ---
Author Organization [facility] Address [address] [place] [address] Phone Care Team Providers Care Post Graduate Intern Name Role Phone Unavailable Primary Care Provider Unavailabl e Social History Tobacco UseTypesPacks/DayYears UsedDateSmoking Tobacco: Never AssessedSex and Gender InformationValueDate RecordedSex Assigned at BirthNot on fileLegal Sex Male09/10/2022 9:13 AM ESTGender IdentityNot on fileSexual OrientationNot on file Plan of Treatment Not on file
--- OUTSIDE RECORDS SUMMARY | 2025-09-16 11:28 | XMS_ITS | Encounter Summary ---
Author Organization [facility] Address [address] [place] [address] Care Team Providers Care Radiographic Technologist Name Role Phone Arnie Lund DO Primary Care Provider [phone] Reason for Referral * Imaging (Routine) - Pending ReviewSpecialtyDiagnoses / ProceduresReferred By ContactReferred To ContactCardiology Diagnoses A-fib (CMS/HCC) Procedures Transesophageal Echo (SUSAN) Mariusz Montoya MD [address] [place] [address] Phone: tel: fax: Referral IDStatusReasonStart DateExpiration DateVisits RequestedVisits [id number] Review Perform Procedure Encounter Details DateTypeDepartmentCare Team (Latest Contact Info)Vjufupgxjgt49/25/2025Orders Only [facility] [address] [place] [address] Charissa Ortiz RN A-fib (CMS/HCC) (Primary Dx) Social History Tobacco UseTypesPacks/DayYears UsedDateSmoking Tobacco: FormerCigarettesQuit: 1981Smokeless Tobacco: NeverAlcohol UseStandard Drinks/WeekCommentsYes0 (1 standard drink = 0.6 oz pure alcohol)OCCASIONALPHQ-2AnswerDate RecordedPatient Health Questionnaire-2 Kdwmi053UT Safety & EnvironmentAnswerDate RecordedFear of Current or Ex-PartnerNot on file12/07/2023Emotionally AbusedNot on file12/07/2023hysically AbusedNot on 12/07/2023Sexually AbusedNot on file12/07/2023hysically or Sexually AbusedNot on file12/07/2023Sex and Gender InformationValueDate RecordedSex Assigned at CsujnZufm72/28/2023 6:32 AM EDT Legal AhtZohk3004/13/2022 11:44 PM EDTGender EvufsgeyDdbs81/28/2023 6:32 AM EDT Sexual OrientationHeterosexual or Uxzwmojt88/28/2023 6:32 AM EDTdocumented as of this encounter Plan of Treatment DateTypeDepartmentCare Team (Latest Contact Info)Iqmfsveqqse83/02/2025 11:30 AM ESTOffice Visit [facility] [place] [address] [place] [address] Mariusz Montoya MD [address] [place] [address] Paroxysmal atrial fibrillation (CMS/HCC) (Primary Dx)09/25/2025 8:30 AM EST Hospital Encounter [facility] [place] [facility] [address] [place] [address] Mariusz Montoya MD [address] [place] [address] Paroxysmal atrial fibrillation (CMS/HCC)09/25/2025 8:30 AM EST - 09/25/2025 12:00 PM ESTSurgery [facility] [place] [facility] [address] [place] [address] Mariusz Montoya MD [address] [place] [address] Ablation a-fib w/ pvi [[id number] (CPT??)]NameTypePriorityAssociated DiagnosesOrder ScheduleTransesophageal Echo (SUSAN)EchocardiographyRoutine A-fib (CMS/HCC) Expected: 09/25/2025 (Approximate), Expires: 09/09/2027documented as of this encounter Visit Diagnoses Diagnosis A-fib (CMS/HCC)- Primary Atrial fibrillation Paroxysmal atrial fibrillation (CMS/HCC) Atrial fibrillation A-fib (CMS/HCC)- Primary Atrial fibrillation Paroxysmal atrial fibrillation (CMS/HCC)- Primary Atrial fibrillation Paroxysmal atrial fibrillation (CMS/HCC) Atrial fibrillation documented in this encounter Care Teams Team MemberRelationshipSpecialtyStart DateEnd Date Arnie Lund DO [address] [facility] [place] [address] PCP - 06/07/22documented as of this encounter
--- OUTSIDE RECORDS SUMMARY | 2025-09-16 11:28 | XMS_ITS | Clinical Summary ---
Author Organization [employer] Address [id number] [address] [place] [address] Care Team Providers Care Health Science Instructor Name Role Phone Arnie Lund Primary Care Provider [phone] Allergies Active AllergyReactionsCriticalityNoted BaedUnergdtrZoflipy-Wox-Fty Reductase Oivfdorbrr81/19/2022 Medications MedicationSigDispense QuantityRefillsLast FilledStart DateEnd DateStatus allopurinoL [...] stage 4 (severe) 2Diabetes mellitus type 2, xxhcrecfje69/19/5218Daefabfzmhxl34/19/2022 Chronic systolic heart gyocozp30/19/2022COPD (chronic obstructive pulmonary disease)11/03/2021 Family History Medical HistoryRelationNameCommentsDiabetesFatherHypertensionFatherDiabetes MotherHypertensionMotherRelationNameStatusCommentsFatherMother Social History Tobacco UseTypesPacks/DayYears UsedDateSmoking Tobacco: FormerSmokeless Tobacco: Never Tobacco Cessation:Counseling Given: Not Answered Alcohol UseStandard Drinks/WeekCommentsNot Currently0 (1 standard drink = 0.6 oz pure alcohol)ChildcareAnswerDate UyzspzncVndqpzhsmFqnjodz58/12/2019Employment AnswerDate GzhedwqtPartsfzpbkVkzosrh25/12/2019Purpose - LifeAnswerDate Recorded Purpose and direction in wqrqCgssucs13/11/2021ex and Gender InformationValue Date RecordedSex Assigned at BirthNot on fileLegal NycPjai2505/21/2015 11:38 AM EDTGender IdentityNot on fileSexual OrientationNot on file Last Filed Vital Signs Vital SignReadingTime TakenCommentsBlood Bekmrmem237/8010 10:27 AM EDT Gtivx6472 10:27 AM QLOUkdxenhzxsm22.7 ??C (98.1 ??F)11/11/2021 10:01 AM ESTRespiratory Rate--Oxygen Fnwmqdtkig86%10/05/2023 4:11 PM ESTInhaled Oxygen Concentration--Nfqweb63.2 kg (218 lb 12.8 oz)08/08/2024 10:25 AM UTCSoadku013.3 cm (5' 11 )08/08/2024 10:25 AM EDTBody Mass Index30.5208/08/2024 10:25 AM EDT Plan of Treatment Health MaintenanceDue DateLast DoneCommentsDepression Eyznystrf75/18/1954 DTaP,Tdap and Td Vaccines (1 - Tdap)1961Zoster (Shingles) Vaccine (1 of 2) 1992Fall Risk Pnlnjgmgf60/18/2007RSV ( or age 60+ yrs) (1 - 1-dose 75+ series)2017COVID-19 Vaccine ( season), 07/20/2023, 07/10/2022, Additional history existsInfluenza Hgcmmoj0706/16/2025 07/15/2024, 07/11/2023, 07/04/2022, Additional history existsTobacco Screening Medical Devices Not on file Insurance * Guarantor: Nas OliverAccount TypeRelation to PatientDate of BirthPhone Billing AddressPersonal/UqhcazDlmn[address] [address] Care Teams Team MemberRelationshipSpecialtyStart DateEnd Date Arnie Lund DO PCP - GeneralInternal Medicine11/11/21
--- OUTSIDE RECORDS SUMMARY | 2025-09-16 11:28 | XMS_ITS ---
Author Organization [facility] Address [address] [address] Care Team Providers Care Rental Clerk Name Role Phone Arnie Lund DO Primary Care Provider [phone] Active Problems ProblemNoted DateDiagnosed DateAcute blood loss vwexsf105Acute kidney injury superimposed on CKD5Acute on chronic ciuxtn405Anemia of renal pvsugpz17/02/2025Aspiration moovqxdje08/02/2025Bruising at injection site 5Coronary artery aairoze0909/16/2025Femoral neck jpazmofc96/02/2025 History of ldpypdrdkftcwl76/02/7648Agbiggs08/02/2025Positive fecal occult blood test09/16/2025Screening PSA (prostate specific antigen)09/16/2025 Overview (09/16/2025): PSA: 0.91 - 07/2024, 0.98 - 02/2025 Secondary wlchebyyowwqxeeivbj25/02/5509Ytmrkix28/02/2025Status post hemiarthroplasty of right hip09/16/20259257Amiwvithlvx60/23/2024rimary insomnia 4Chronic bronchitis, hpxaug2603/29/2024hronic venous insufficiency 7999Fuybgcuobksy01/14/2024Hyperlipidemia type II03/29/2024Hypothyroidism due to orkvvykwfn02/14/2024Impaired mobility and activities of daily living 03/29/2024Iron deficiency vqwlze2303/29/2024olon eugffw2603/29/2024Mucopurulent chronic /14/2024Obstructive sleep apnea03/29/20243456Drdkwzimv74/14/2024 A-fib03/29/2024soas abscess, right03/29/2024ulmonary savezmhzeejj32/14/2024 Jfcmlphjfikzdn68/14/2024Type 2 diabetes mellitus with wfxhhqywkilrd41/14/2024 Stage 4 chronic kidney hlngnsx7009/22/2023Statin znyoowlzdox77/14/2023ilated ovrvstamjkoqyf71/20/2023 Overview (04/04/2023): Added automatically from request for surgery [id number] Stage 3 chronic kidney lwhbvby6506/09/2022hronic systolic heart pchrivf8306/09/2022 Assessment & Plan (09/20/2022 5:21 PM EST): -HFrEF -NHYA III -he appears euvolemic on exam despite weight gain, this could be attributed to correcting thyroid issues -He has no LE edema, JVD -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 -he will need 3 month follow up with moukarbel -continue GDMT: norvasc, aspirin, bumex, hydralazine, isosorbide, toprolXL Tnnkgeerfnol68/25/2022Edema of lower mvpxokjbu14/25/2022 Assessment & Plan (09/20/2022 5:23 PM EST): -this must be improved as he does not exhibit any LE edema Hypertensive /25/2022 Assessment & Plan (09/20/2022 5:22 PM EST): -he is controlled today -will continue to re-evaluate on follow up pending nephrology recommendations Left ventricular systolic bsrilfyuoyf64/25/7339Ialfricqtal24/25/2022COPD (chronic obstructive pulmonary disease)2Osteomyelitis of vertebra 0021Ohmykwmokn89/01/3433Hxkhfcyymziyyc97/01/2021Type 2 diabetes mellitus 06/16/2021aroxysmal atrial zrrnjxd0408/16/2019 Current Treatment and Therapy Plans No current plan information found. Past Treatment and Therapy Plans No past plan information found. Lifetime Dose Tracking * ChemicalLifetime DoseAutomatic EntryManual EntryFluoro Time7.9 minutes0 minutes7.9 minutesAir Kerma62 mGy0 mGy62 mGyDose Area Product6,950 mGy-cm20 mGy-cm26,950 mGy-cm2 Resolved Problems ProblemNoted DateDiagnosed DateResolved YgqfKnfydzbodgnf90/01/202107/
--- OUTSIDE RECORDS SUMMARY | 2025-09-16 11:28 | XMS_ITS | Clinical Summary ---
Author Organization [facility] Address [address] [address] Care Team Providers Care Ticket Taker Name Role Phone Arnie Lund DO Primary Care Provider [phone] Allergies Active AllergyReactionsCriticalityNoted PyfqAkruzwpmCihyosw-Jzj-Lyd Reductase Ttasdbridm25/25/0474Ljxhfbfe71/25/2022 Medications MedicationSigDispense QuantityRefillsLast FilledStart DateEnd DateStatus allopurinol [...] ctive Additional Information Patient taking differently:10 mg oral3 times daily, Reported on 09/16/2025 ascorbic acid (Vitamin C) 500 mg ER [...] 270 tablet 506Active Active Problems ProblemNoted DateDiagnosed DateAcute blood loss vkdjvg9909/16/2025ute kidney injury superimposed on CKD09/16/2025ute on chronic soloss3809/16/2025nemia of renal cbjkexd8509/16/2025spiration bjuncaizd93/02/2025ruising at injection site 09/16/2025oronary artery wodaahx0409/16/2025Femoral neck ejggrrne14/02/2025 History of uzyixxwjofhyxb99/02/9097Adeueex23/02/2025Positive fecal occult blood test09/16/2025Screening PSA (prostate specific antigen)09/16/2025 Overview (09/16/2025): PSA: 0.91 - 07/2024, 0.98 - 02/2025 Secondary dnnsespdwmivhjmvpau87/02/5455Fiemkck22/02/2025Status post hemiarthroplasty of right hip09/16/20250435Ibxujboxbvh06/23/2024rimary insomnia 07/08/2024hronic bronchitis, ofrsso3203/29/2024hronic venous insufficiency 03/29/20243119Gshjxdejejlz03/14/2024Hyperlipidemia type II03/29/2024Hypothyroidism due to zfebtjesyz36/14/2024Impaired mobility and activities of daily living 03/29/2024Iron deficiency ygnojt8203/29/2024olon tpkzxg7703/29/2024Mucopurulent chronic icgukklbuh93/14/2024Obstructive sleep apnea03/29/20243131Nsumrbzmp82/14/2024 A-fib03/29/2024soas abscess, right03/29/2024ulmonary chjdgyzcfiue19/14/2024 Zdicpxijnnkidc28/14/2024Type 2 diabetes mellitus with zuwmbnbrelbwn16/14/2024 Stage 4 chronic kidney dfkjnob9909/22/2023Statin oiqrtvlckkh94/14/2023ilated piqnjxlriiyjjj91/20/2023 Overview (04/04/2023): Added automatically from request for surgery [id number] Stage 3 chronic kidney tijqsdc9606/09/2022hronic systolic heart ktashng0506/09/2022 Assessment & Plan (09/20/2022 5:21 PM EST): -HFrEF -NHYA III -he appears euvolemic on exam despite weight gain, this could be attributed to correcting thyroid issues -He has no LE edema, JVD -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 stock associate regarding kidney 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 -he will need 3 month follow up with moukarbel -continue GDMT: norvasc, aspirin, bumex, hydralazine, isosorbide, toprolXL Azucxqydvaal54/25/2022Edema of lower apcxxvlnt49/25/2022 Assessment & Plan (09/20/2022 5:23 PM EST): -this must be improved as he does not exhibit any LE edema Hypertensive wwoxgoiq56/25/2022 Assessment & Plan (09/20/2022 5:22 PM EST): -he is controlled today -will continue to re-evaluate on follow up pending nephrology recommendations Left ventricular systolic izzsozucmjt54/25/8387Drcnzpnygxu05/25/2022COPD (chronic obstructive pulmonary disease)2Osteomyelitis of vertebra 9480Jljugtvhpz40/01/5602Xiemcdhnqoigtg32/01/2021Type 2 diabetes mellitus 06/16/2021aroxysmal atrial eryznnq1308/16/2019 Resolved Problems ProblemNoted DateDiagnosed DateResolved NylaPylzzntplmxk46/01/202107/ Encounters DateTypeDepartmentCare LkmiPnlbuckxtzr81/02/2025 11:30 AM ESTOffice Visit [facility] [address] [place] [facility] [place] [address] Mariusz Montoya MD Paroxysmal atrial fibrillation (CMS/HCC) (Primary Dx)09/16/2025 10:45 AM EST Ancillary Procedure [facility] [address] [place] [facility] [place] [phone] Encounter for implantable defibrillator reprogramming or check09/09/2025Orders Only [facility] [address] [place] [phone] Charissa Ortiz RN Paroxysmal atrial flutter (CMS/HCC) (Primary Dx)09/09/2025Orders Only [facility] [address] [place] [phone] Charissa Ortiz RN A-fib (CMS/HCC) (Primary Dx)08/25/2025 12:00 PM ESTAncillary Procedure [facility] [address] [place] [phone] Pre-operative cardiovascular examination, ICD in place08/25/2025Orders Only [facility] [address] [place] [phone] Mariusz Montoya MD 08/18/2025 8:00 AM ESTAncillary Procedure [facility] [address] [place] [phone] Pre-operative cardiovascular examination, ICD in place08/17/2025Orders Only [facility] [address] [place] [address] Mariusz Montoya MD 07/25/2025 9:30 AM EDTAncillary Procedure [facility] [address] [place] [address] Pre-operative cardiovascular examination, ICD in place07/25/2025Orders Only [facility] [address] [facility] [place] [address] Sarwat Lazo MD 07/23/2025Telephone [facility] [address] [place] [facility] [place] [address] Juana Garrett MA 07/21/2025Telephone [facility] [address] [place] [facility] [place] [address] Kalee Mahmood MA 06/27/2025Refill [facility] [address] [place] [facility] [place] [address] Kalee Mahmood MA Chronic systolic heart failure (CMS/HCC); Primary enfwbtxgaazj13/11/2025Telephone [facility] [address] [place] [facility] [place] [address] Kalee Mahmood MA 06/26/2025Refill [facility] [address] [place] [facility] [place] [address] Adan Ortiz MD Persistent atrial fibrillation (CMS/HCC)06/24/2025 4:30 AM EDTAncillary Procedure [facility] [address] [place] [address] Pre-operative cardiovascular examination, ICD in place06/24/2025Orders Only [facility] [address] [place] [phone] Mariusz Montoya MD from Last 3 Months Immunizations ImmunizationAdministration DatesNext DueInfluenza, Viqkcfxkgfd64/01/2019 Unspecified Sars-Cov-2 Iwkekanmlfz28/18/2021,11/12/2020 Family History Medical HistoryRelationNameCommentsGlaucomaBrotherHeart diseaseFatherDiabetes Maternal GrandmotherDiabetesMotherClotting [...] and Gender InformationValueDate Recorded Sex Assigned at RcrsaXnrw01/28/2023 6:32 AM EDTLegal QjtAwhk4504/13/2022 11:44 PM EDTGender BjwcaoonJrhu47/28/2023 6:32 AM EDTSexual OrientationHeterosexual or Voztcxwk73/28/2023 6:32 AM EDT Last Filed Vital Signs Vital SignReadingTime TakenCommentsBlood Jpodkfcg414/8409/16/2025 10:47 AM EST Azfbt652609/16/2025 10:47 AM VXBPjikjzqvnne12.1 ??C (97 ??F)07/08/2021 2:48 PM EDT Respiratory Jaxj082710/17/2024 12:27 PM ESTOxygen Kvhlheemol58%09/16/2025 10:47 AM ESTInhaled Oxygen Concentration--Ufctua42.7 kg (200 lb)05/27/2025 9:25 AM EDT Blhnuf576.3 cm (5' 11 )09/16/2025 10:47 AM ESTBody Mass Index27.8905/27/2025 9:25 AM EDT Plan of Treatment DateTypeDepartmentCare Team (Latest Contact Info)Nswwsypfnav36/02/2025 11:30 AM ESTOffice Visit [facility] [address] [place] [address] Mariusz Montoya MD [address] [place] [phone] Paroxysmal atrial fibrillation (CMS/HCC) (Primary Dx)09/25/2025 8:30 AM EST Hospital Encounter [facility] Heart pending [facility] [address] [place] [phone] Mariusz Montoya MD [address] [place] [phone] Paroxysmal atrial fibrillation (CMS/HCC)09/25/2025 8:30 AM EST - 09/25/2025 12:00 PM ESTSurgery [facility] Heart [facility] to [facility] [place] [facility] [address] [place] [phone] Mariusz Montoya MD [address] [place] [phone] Ablation a-fib w/ pvi [76911 (CPT??)]Health MaintenanceDue DateLast DoneComments Medicare Annual Wellness (AWV)2Diabetes: Retinopathy Screening 2Depression Nadajblsy90/18/1954Diabetes: Urine Protein Screening 1961Zoster Vaccines (1 of 2)1992Fall Risk Adtkjvule90/18/2007 Diabetes: Hemoglobin A1C, 08/13/2019Adult Lwmqoyz0908/02/2023 08/02/2013, 06/27/2012COVID-19 Vaccine ( season)2025 08/07/2025, 07/22/2024, 07/20/2023, Additional history existsPneumococcal Vaccine: 50+ BpkcjPipmhdkfo91/11/2016, 08/02/2013, 07/16/2013Influenza Vaccine Fkpbowizi60/23/2025, 07/15/2024, 07/11/2023, Additional history existsHIB VaccinesAged OutNo longer eligible based on patient's age to complete this topic HPV VaccinesAged OutNo longer eligible based on patient's age to complete this topicIPV VaccinesAged OutNo longer eligible based on patient's age to complete this topicMeningococcal B VaccineAged OutNo longer eligible based on patient's age to complete this topicMeningococcal VaccineAged OutNo longer eligible based on patient's age to complete this topicRotavirus VaccinesAged OutNo longer eligible based on patient's age to complete this topic Medical Devices ImplantedTypeAreaManufacturerDevice IdentifierShelf Expiration DateModel / Serial / LotRivacor 7 Hf-T Qp Implanted:Qty: 1 on 06/12/2023 by [facility] [id number] / [id number] / Plexa Promri S 60 - [id number] - [id number] Implanted:Qty: 1 on 06/12/2023 by Mariusz [id number] / [id number] / Lead,Sentus,Qp L-85 - [id number] - [id number] Implanted:Qty: 1 on 06/12/2023 by [facility]ariusz [id number] / [id number] / Procedures Procedure NamePriorityDate/TimeAssociated DiagnosisCommentsECG 12 LEAD UNIT TCNDDKODSIcclueh87/02/2025 10:49 AM EST Paroxysmal atrial fibrillation (CMS/HCC) CARDIAC DEVICE CHECK CHECK - YWATQBHqscumq17/11/2025 6:41 PM EST Pre-operative cardiovascular examination, ICD in place CARDIAC DEVICE CHECK - REMOTE - XMFLwfsmru29/10/2025 12:00 AM ESTCARDIAC DEVICE CHECK CHECK - IJFWCMOnvchaa71/06/2025 5:36 PM EST Pre-operative cardiovascular examination, ICD in place CARDIAC DEVICE CHECK - REMOTE - QZLEqcexck93/02/2025 12:00 AM EDTCARDIAC DEVICE CHECK CHECK - YCJAJICsrbqwj59/14/2025 3:32 PM EDT Pre-operative cardiovascular examination, ICD in place CARDIAC DEVICE CHECK - REMOTE - JNEImrmdlu21/10/2025 12:00 AM EDTCARDIAC DEVICE CHECK CHECK - ENIIRVLlzvmhu51/10/2025 1:13 PM EDT Pre-operative cardiovascular examination, ICD in place CARDIAC DEVICE CHECK - REMOTE ALERT - XSAPbjqbdl22/09/2025 12:00 AM EDT HEMOGLOBIN P7PVkedbgn47/17/2022 5:51 AM EDT from Last 3 Months or Most Recently Relevant to Health Maintenance Results * ECG 12 lead unit performed (09/16/2025 10:49 AM EST)Specimen (Source) Anatomical Location / LateralityCollection Method / VolumeCollection Time Received Time Narrative Authorizing ProviderResult TypeResult Phu NASSAR ORDERABLESFinal Result * CARDIAC DEVICE CHECK - REMOTE - ICD (08/26/2025 6:41 PM EST) Only the most recent of4 resultswithin the time period is included. Specimen (Source)Anatomical Location / LateralityCollection Method / Volume Collection TimeReceived Time Narrative Authorizing ProviderResult TypeResult StatusBlair Alejandre [facility] [place] IMPLANTABLE CARDIAC DEVICE PROCEDURESFinal ResultPerforming OrganizationAddressCity/State/ZIP Code Phone Number CPACS * Cardiac device check - Remote ICD (08/25/2025 12:00 AM EST) Only the most recent of3 resultswithin the time period is included. Anatomical RegionLateralityModalityOtherSpecimen (Source)Anatomical Location / LateralityCollection Method / VolumeCollection TimeReceived Time08/25/2025 Narrative Authorizing ProviderResult TypeResult Phu Montoya [facility] [place] IMPLANTABLE CARDIAC DEVICE PROCEDURESFinal Result * Cardiac device check - Remote alert ICD (06/24/2025 12:00 AM EDT)Anatomical RegionLateralityModalityOtherSpecimen (Source)Anatomical Location / Laterality Collection Method / VolumeCollection TimeReceived Time06/24/2025 Narrative Authorizing ProviderResult TypeResult StatusPaul Jan MDCV IMPLANTABLE CARDIAC DEVICE PROCEDURESFinal Result * (ABNORMAL) Hemoglobin A1c (04/01/2022 5:51 AM EDT)ComponentValueRef RangeTest MethodAnalysis TimePerformed AtPathologist SignatureHemoglobin A1C6.4(H)4.0 - 6.0 %LAB CONVERSIONSEstimated Average Fdaxobn944wkzi/LLAB CONVERSIONSSpecimen (Source)Anatomical Location / LateralityCollection Method / VolumeCollection TimeReceived Time04/01/2022 5:51 AM EDT04/01/2022 6:04 AM EDT Narrative LAB CONVERSIONS - 04/01/2022 2:09 PM EDT If not done in ED No: Do not add to previous draw Authorizing ProviderResult TypeResult StatusGeneric Provider ConversionLAB BLOOD ORDERABLESFinal ResultPerforming OrganizationAddressCity/State/ZIP CodePhone Number LAB CONVERSIONS from Last 3 Months or Most Recently Relevant to Health Maintenance Insurance Advance Directives * Full Code (Latest Code Status on File) Date ActivatedDate InactivatedComments06/12/2023 10:55 AM06/12/2023 2:41 PM Care Teams Team MemberRelationshipSpecialtyStart DateEnd Date Arnie Lund DO [address] [place] [phone] PCP - General06/07/22
--- OUTSIDE RECORDS SUMMARY | 2025-09-16 11:30 | XMS_ITS | Encounter Summary ---
Author Organization [facility] Address [address] [facility] [place] [address] Care Team Providers Care Sap Basis Architect Name Role Phone Arnie Lund DO Primary Care Provider [phone] Reason for Visit * ReasonCommentsFollow-upPatient is here today for an H & P for A-Fib ablation along with a device check. Patient denieschest pain, SOB/HERNANDEZ, racing heart/palpitations, dizziness/lightheaded, a week ago had bloody noses x1 a day for 3 to 4 days.Congestive Heart FailureHyperlipidemiaHypertensionLeft ventricular systolic dysfunctionAtrial FlutterCardiomyopathyChronic venous insufficencyPulmonary Hypertension Encounter Details DateTypeDepartmentCare Team (Latest Contact Info)Wfodwtjqcyv47/02/2025 11:30 AM ESTOffice Visit [facility] [place] [address] [place] [address] Mariusz Montoya MD [address] [place] [phone] Paroxysmal atrial fibrillation (CMS/HCC) (Primary Dx) Social History Tobacco UseTypesPacks/DayYears UsedDateSmoking Tobacco: FormerCigarettesQuit: 1982Smokeless Tobacco: NeverAlcohol UseStandard Drinks/WeekCommentsYes0 (1 standard drink = 0.6 oz pure alcohol)OCCASIONALPHQ-2AnswerDate RecordedPatient Health Questionnaire-2 Qafrj858UT Safety & EnvironmentAnswerDate RecordedFear of Current or Ex-PartnerNot on file02/22/2024Emotionally AbusedNot on file12/07/2023hysically AbusedNot on 12/07/2023Sexually AbusedNot on 12/07/2023hysically or Sexually AbusedNot on 12/07/2023Sex and Gender InformationValueDate RecordedSex Assigned at VkbanYyzh76/28/2023 6:32 AM EDT Legal MimKfum5104/13/2022 11:44 PM EDTGender QmsctwhmBnrs28/28/2023 6:32 AM EDT Sexual OrientationHeterosexual or Wpywaczi62/28/2023 6:32 AM EDTdocumented as of this encounter Last Filed Vital Signs Vital SignReadingTime TakenCommentsBlood Nblrvzze943/8409/16/2025 10:47 AM EST Rluqe131209/16/2025 10:47 AM ESTTemperature--Respiratory Rate--Oxygen Saturation 95%09/16/2025 10:47 AM ESTInhaled Oxygen Concentration--Weight--Xxxdvu307.3 cm (5' 11 )09/16/2025 10:47 AM ESTBody Mass Index--documented in this encounter Plan of Treatment DateTypeDepartmentCare Team (Latest Contact Info)Swqvitxasep60/11/2025 8:30 AM ESTHospital Encounter [facility] Heart [facility] [place] [facility] [address] [place] [address] Mariusz Montoya MD [address] [place] [address] Paroxysmal atrial fibrillation (CMS/HCC)09/25/2025 8:30 AM EST - 09/25/2025 12:00 PM ESTSurgery [facility] Heart [facility] [place] [facility] [address] [place] [address] Mariusz Montoya MD [address] [place] [address] Ablation a-fib w/ pvi [35219 (CPT??)]documented as of this encounter Procedures Procedure NamePriorityDate/TimeAssociated DiagnosisCommentsECG 12 LEAD UNIT KXRGAWBEETunsqys17/02/2025 10:49 AM EST Paroxysmal atrial fibrillation (CMS/HCC) documented in this encounter Results * ECG 12 lead unit performed (09/16/2025 10:49 AM EST)Specimen (Source) Anatomical Location / LateralityCollection Method / VolumeCollection Time Received Time Narrative Authorizing ProviderResult TypeResult StatusPatri NASSAR ORDERABLESFinal Result documented in this encounter Visit Diagnoses Diagnosis A-fib (CMS/HCC)- Primary Atrial fibrillation Paroxysmal atrial fibrillation (CMS/HCC) Atrial fibrillation Paroxysmal atrial fibrillation (CMS/HCC)- Primary Atrial fibrillation Paroxysmal atrial fibrillation (CMS/HCC) Atrial fibrillation documented in this encounter Care Teams Team MemberRelationshipSpecialtyStart DateEnd Date Arnie Lund DO [address] [place] [address] PCP - General06/07/22documented as of this encounter
--- OUTSIDE RECORDS SUMMARY | 2025-09-16 11:34 | XMS_ITS | CCD ---
Author Organization [facility] Care Team Providers Care School Services Officer Name Role Phone GILMER SALAZAR Attending Unavailable GILMER SALAZAR Admitting Unavailable YAS LINDA Referring Unavailable YAS LINDA Primary Care Unavailable DO Yas Linda Primary Care Provider CHARLENE Kelly Attending Provider MD Kalia Sánchez Referring Provider DO Chivo Keller II Attending Provider MD Kalia Sánchez Referring Provider [phone] DO Chivo Keller II Attending Provider [phone] MD Ramesh Rascon Attending Provider [phone] DO Yas Linda Primary Care Provider [phone] MD Ramesh Rascon Attending Provider MD Kalia Sánchez Referring Provider DO Chivo Keller II Attending Provider [phone] Yas Linda Unavailable JORGITO FERMIN Admitting Unavailable JORGITO, FERMIN Attending Unavailable JORGITONIKKIEFERMIN Consulting Unavailable MADDI, DR SORENSON Primary Care [...] DR SORENSON Primary Care Unavailable BALL, DR SORENSNO Consulting Unavailable BALL, DR SORENSON Admitting Unavailable [...] Care Unavailable BALL, DR SORENSON Consulting Unavailable JORGITO, FERMIN Admitting Unavailable JORGITO, FERMIN Attending Unavailable BALL, DR SORENSON Primary Care Unavailable KUNAL BUTLER, AVERY Ennis Admitting Unavailab shaina SYED MD, AVERY Ennis Attending Unavailab AVERY Ho MD Consulting Unavailab shaina LINDA, DR SORENSON Primary Care Unavailable YISSEL, DR SEYMOUR Admitting Unavailable YISSEL, DR SEYMOUR Attending Unavailable MADDI, DR SORENSON Primary Care Unavailable Maddi, DO Sorenson Primary Care Provider MD Kalia Sánchez Referring Provider Arianna II, DO Chivo Howell Attending Provider DO Yas Linda Primary Care Provider MD Gonzalo Kalia Referring Provider Arianna II, DO Chivo Howell Attending Provider Maddi BUTLER, Yas Staples Primary Care Provider Yas Linda DO Primary Care Provider Yas Linda DO Primary Care Provider Maddi HERRMANN, Yas Primary Care Provider Barrie BUTLER, Sudha Admit Provider Walker Soria MD Other Provider Nakul BUTLER, Wendy Jacobson Other Provider [phone] Marleen DENTAL HYGIENE INSTRUCTOR-C, Kiesha Ennis Other Provider Unavail able José Luis Winslow DO Other Provider Mazin Erickson MD Other Provider Dario Rosales DO Other Provider Emile Reynolds DO Attending Provider Winsome Goff MD Other Provider Colleen DENTAL HYGIENE INSTRUCTOR-C, Judy Other Provider Unavailable Lionel BUTLER, Zahida Other Provider Jenae BUTLER, Kaitlynn Other Provider Coretta BUTLER, Talisha Other Provider Sotero Black MD Other Provider Brenda Driscoll APRN Other Provider [phone] William Quinteros DO Other Provider Clyde Bedolla MD Other Provider Wayne BUTLER, Sotero Admit Provider Sotero Black MD Attending Provider Yas Linda DO Primary Care Provider Barrie BUTLER, Sudha Admit Provider [phone] Walker Soria MD Other Provider Nakul BUTLER, Wendy Jacobson Other Provider Marleen DENTAL HYGIENE INSTRUCTOR-C, Kiesha Ennis Other Provider Unavail able Nayla HERRMANN, José Luis Goyal Other Provider Dre BUTLER, Mazin Lemos Other Provider Dario Rosales DO Other Provider Emile Reynolds DO Attending Provider Winsome Goff MD Other Provider Colleen DENTAL HYGIENE INSTRUCTOR-C, Judy Other Provider Unavailable Zahida Flowers MD Other Provider Kaitlynn Emanuel MD Other Provider Talisha Hitchcock MD Other Provider Sotero Black MD Other Provider Brenda Driscoll APRN Other Provider William Quinteros DO Other Provider Clyde Bedolla MD Other Provider Wayne BUTLER, Sotero Admit Provider Sotero Black MD Attending Provider Paulo MEDINA, Noemy Other Provider Unavailable Reynaldo MEDINA, Carolynn Other Provider Unavailable Gretel Kirkland RN Other Provider Unavailable Merissa Balbuena RN Other Provider Unavailable Pati Brice RN Other Provider Unavailable Vicky Jasso MD Other Provider Kofi Bustamante DO Other Provider Mario Salazar MD Other Provider [phone] Rachid Adhikari DO Other Provider Genet BUTLER, Yassine Other Provider [phone] Sudha Sood MD Other Provider Micah Curry DO Other Provider Nav Peterson MD Other Provider Unavailable Zoie Field APRN Other Provider Jameel BUTLER, Jaye Other Provider [phone] Edna BUTLER, Augustine Other Provider Osmar BUTLER, Jan Other Provider Unavailable Shannan Valentin MD Other Provider Micah Lyn DO Other Provider [phone] Elliott Cole MD Other Provider Shandra BUTLER, Yaron Other Provider Chase DENTAL HYGIENE INSTRUCTOR-C, Candi Howell Other Provider Que LEON, Matthew Lemos Other Provider Unavailable Mayi BUTLER, Kuldeep Staples Other Provider Sacha BUTLER, Kings Other Provider Eloy Resendiz MD Other Provider Chapo BUTLER, Jon Other Provider Unavailable Elias Fermin MD Other Provider Mirian Calvo DO Other Provider Vish Bajwa DO Other Provider Krysten Mcclelland APRN Other Provider Emile Reynolds DO Other Provider Bertram BUTLER, Carole Lemos Other Provider Siobhan Rucker APRN Other Provider Aislinn Maria APRN Other Provider [phone] Los Calderon MD Other Provider Unavailable Live Grajeda MD Other Provider [phone] Diaz DO, Doron T Other Provider Forest DO, Yazid Other Provider Martín BUTLER, Wolfgang Davey Other Provider Tera BUTLER, India Villa Other Provider [phone] Lisa Sotelo APRN Other Provider Unavailable Stan BUTLER, Magnolia Other Provider Susy BUTLER, Laurent Other Provider Maryana BUTLER, Sotero Rocha Other Provider Eden BUTLER, Nav Purdy Other Provider Ermias BUTLER, Dano Other Provider Karime LEON, Aria Cabrera Other Provider [phone] Dima LEON, Alvina Other Provider Eliza RN, Aura Other Provider Unavailable Ramesh Rascon MD Other Provider [phone] Eva LEON, Jerry Lemos Other Provider Corey BUTLER, Son Other Provider Erica Tian DO Other Provider Gilles Kirkland APRN Other Provider [phone] Walker Soria MD Attending Provider NO FAMILY, PHYSICIAN Primary Care Provider Unava ilable Yas Linda DO Primary Care Provider Yas Linda DO Primary Care Provider Kalia Sánchez MD Referring Provider Chivo Keller DO Attending Provider [phone] Kalia Sánchez MD Referring Provider Chivo Keller DO Attending Provider Zahida Flowers MD Attending Provider Yas Linda DO Primary Care Provider Yas Linda DO Attending Provider Walker Soria MD Attending Provider Chivo Keller DO Attending Provider [phone] Kalia Sánchez MD Referring Provider Maddi HERRMANN Yas Primary Care Provider [phone] Maddi HERRMANN Yas Attending Provider Zahida Flowers MD Attending Provider Maddi Yas Primary Care Unavailable Ramesh Rascon Attending Unavailable Ramesh Rascon Admitting Unavailable Olexa, Walker Attending Unavailable [facility] Primary Care Unavailable Olexa, Walker Admitting Unavailable WayneSotero Attending Unavailable Sotero Black Admitting Unavailable Olexa, Walker Admitting Unavailable Olexa, Walker Attending Unavailable [facility]available Olexa, Walker Consulting Unavailable [facility] Care Unavailable Emile Reynolds Attending Unavailable Sudha Sood Admitting Unavailable Wendy Mota Consulting Unavailable Kiesha Hawley Consulting Unavailable José Luis Winslow Consulting Unavailable Mazin Erickson II Consulting UnavailDario Handy Consulting Unavailable Winsome Goff Consulting Unavailable Judy Macias Consulting Unavailable Zahida Flowers Consulting Unavailable Kaitlynn Emanuel Consulting Unavailable Talisha Hitchcock Consulting Unavailable Sotero Black Consulting Unavailable Brenda Driscoll Consulting Unavailable William Quinteros Jr Consulting UnavailClyde Camacho Consulting Unavaila tarah LindaCarraway [facility] Care Unavailable Sotero Black Attending Unavailable Sotero Black Admitting Unavailable Noemy Bates Consulting Unavailable Carolynn Jacobs Consulting Unavailable Gretel Kirkland Consulting Unavailable Merissa Balbuena Consulting Unavailable Pati Brice Consulting Unavailable Vicky Jasso Consulting Unavailable Kofi Bustamante Consulting Unavailable Mario Salazar Consulting Unavailable Rachid Adhikari Consulting UnavailYassine Bliss Consulting Unavailable Sudha Sood Consulting Unavailable Micah Curry Consulting Unavailable Nav Peterson Consulting Unavailable Zoie Field Consulting UnavailJaye Maldonado Consulting Unavailable Augustine Bishop Consulting Unavailable Jan Prasad Consulting Unavailable Shannan Valentin Consulting Unavailable Micah Lyn Consulting Unavailable Elliott Cole Consulting Unavailable Yaron Devi Consulting Unavailable Candi Stone Consulting Unavailable Matthew Grey Consulting Unavailable Kuldeep See Consulting Unavailab Kings Joseph Consulting Unavailable Eloy Resendiz Consulting Unavailable Jon Cowan Consulting Unavailable Elias Fermin Consulting Unavailable Mirian Calvo Consulting Unavailable Vish Bajwa Consulting Unavailable Krysten Mcclelland Consulting Unavailable Emile Reynolds Consulting Unavailable DaromarCarole Consulting Unavailable Siobhan Rucker Consulting Unavailable Aislinn Maria Consulting Unavailable AlaLos springer Consulting Unavailable Live Grajeda Consulting Unavailable Doron Diaz Consulting Unavailable Kia Garg Consulting Unavailable Wolfgang Resendiz Consulting Unavailable India Haley Consulting Unava ilable Lisa Sotelo Consulting Unavailable Magnolia Pierce Consulting Unavailable Laurent Jain Consulting Unavailable Sotero Mijares Consulting Unavailable Nav Harmon Consulting Unavailable Dano Monson Consulting Unavailable Aria Schaffer Consulting Unavailable Bolavi-Lance Harperlettadriano Consulting Unavaila Aura Casper Consulting Unavailable Winsome Goff Consulting Unavailable Judy Macias Consulting Unavailable Zahida Flowers Consulting Unavailable Kaitlynn Emanuel Consulting Unavailable Ramesh Rascon Consulting Unavailable Jerry Velasquez Consulting Unavailable Asaad, Imad Consulting Unavailable Erica Tian Consulting Unavailable Gilles Kirkland Consulting Unavailable Yas Linda DO Primary Care Provider [phone] Yas Linda DO Attending Provider Walker Soria MD Attending Provider Chaparro SALASC, Kecia Staplse Attending Provider Kalia Sánchez MD Referring Provider Chivo Keller DO Attending Provider Yas Linda DO Primary Care Provider Yas Linda DO Attending Provider [phone] Sidra Deleon DO Attending Provider Yas Linda DO Primary Care Provider Zahida Flowers MD Attending Provider Maddi Yas HERRMANN Primary Care Provider [phone] Erica Dalton CMA Attending Provider Unavaila Yas Tom DO Primary Care Provider Kecia Gonzalez Attending Provider Kalia Sánchez MD Referring Provider [phone] Chivo Keller DO Attending Provider Yas Linda DO Attending Provider Sidra Deleon DO Attending Provider Erica Dalton CMA Attending Provider Unavaila Zahida Oconnell MD Attending Provider [phone] TRANG DEGROOT Referring Unavailable MIKAYLA, TRANG Admitting Unavailable MIKAYLA, TRANG Attending Unavailable MIKAYLA, TRANG Referring Unavailable BASHIR, RON Referring Unavailable BASHIR, RON Referring Unavailable MIKAYLA, TRANG Referring Unavailable MIKAYLA, TRANG Referring Unavailable MIKAYLA, TRANG Referring Unavailable BASHIR, RON Referring Unavailable MIKAYLA, TRANG Referring Unavailable MOUKARBELADAN Attending Unavailable MIKAYLA, TRANG Referring Unavailable MIKAYLA, TRANG Attending Unavailable LORI, ENRRIQUE Attending Unavailable LORIENRRIQUE Attending Unavailable MIKAYLA, TRANG Referring Unavailable BASHIR, RON Referring Unavailable MIKAYLA, TRANG Attending Unavailable MIKAYLA, TRANG Referring Unavailable MIKAYLA, TRANG Referring Unavailable MIKAYLA, TRANG Referring Unavailable BASHIR, RON Referring Unavailable MIKAYLA, TRANG Referring Unavailable MIKAYLA, TRANG Referring Unavailable BASHIR, RON Referring Unavailable MIKAYLA, TRANG Referring Unavailable BASHIR, RON Referring Unavailable MIKAYLA, TRANG Referring Unavailable MIKAYLA, TRANG Referring Unavailable MIKAYLA, TRANG Referring Unavailable DANNAMARILIN Attending Unavailable RUS, EMELY Purdy Attending Unavailable KENNY CLAY Attending Unavailable OLEXA, WALKER Referring Unavailable BRINK, KILO Attending Unavailable OLEXA, WALKER Referring Unavailable KELFERMIN CACERES Attending Unavailable OLEXA, WALKER Referring Unavailable MYLES RILEY Attending Unavailable OLEXA, WALKER Referring Unavailable BRINK, [...] Unavailable OLEXA, WALKER Referring Unavailable RUSHER, EMELY Purdy Attending Unavailable BRINK, KILO Attending Unavailable OLEXA, WALKER Referring Unavailable RUSHER, EMELY S Attending Unavailable Maddi HERRMANN, Yas Staples Primary Care Provider Allergies Allergy ClassificationReported Allergen(s)Allergy TypeDate of OnsetReaction(s) Facility (3 sources)black walnut pollen extract; Translations: [KSNFJKI-PCP-KOS REDUCTASE INHIBITORS]Drug Whlvzhm09-90-1985[facility] (20 sources)traMADol; Translations: [TRAMADOL]Drug Igvbnow17-11-9613KexmrxkIxq [facility] Repository (20 sources)Gfolikf-SZX-ZtD Reductase Inhibitor; Translations: [Emtmauw-JAO-FvI Reductase Inhibitor]Allergy to ecdmcphnf08-80-8063VqdsvsSelect [facility] (13 sources)AlbuterolDrug AllergyUnkAudrain Medical Center [employer] Other (17 sources)ezetimibeDrug AllergyUnkAudrain Medical Center [employer] Other (13 sources)HMG-CoA reductase inhibitorDrug allergyResearch [facility] [employer] Other (19 sources)NiacinDrug AllergyResearch [facility] [employer] Other (20 sources)SimvastatinDrug Rfepjbl61-26-5503Ifoylwp, Unknown ReactionSumma Health [facility] Campus (8 sources)Statins Depletion *DIETARY PRODUCTS/DIETARY MANAGEPropensity to adverse reactionsEleanor Slater Hospital/[facility] [employer] Other (4 sources)Allergies ReconciledPropensity to adverse reactionsEleanor Slater Hospital/[facility] [employer] Other (8 sources)Albuterol *ANTIASTHMATIC AND BRONCHODILATOR AGENTSPropensity to adverse reactionsComment:coughing more with [facility]Class[facility] [employer] Other (4 sources)patient allergy list reviewed by nurse or physiciaPropensity to adverse binhlnqwa40-10-5370Zjdwurj:[facility] HospitalS[facility] [employer] Other (20 sources)NiacinDrug Gqvlxdj48-11-7027Espxxcz, Unknown Reaction, itching [facility] (5 sources)HMG-CoA reductase inhibitorPropensity to adverse reactions to drug 82-34-9523BqwMiftfnOhioHealth Grant Medical Center (1 source)SimvastatinDrug Qlcmivs38-98-0088TqbjuhgdoSumma Health [facility] Campus Repository (1 source)traMADolDrug Ohshuqz28-95-7456EjvgsqensSumma Health [facility] Repository Medications Current Medications MedicationDrug Class(es)DatesSig (Normalized)Sig (Original)amiodarone hydrochloride 200 mg oral tablet (20 sources)AntiarrhythmicStart: 09-16-2024 End: 60-70-5453udry 1 tablet by mouth in the morningamiodarone (Pacerone) 200 MG tablet Take 200 mg by mouth in the morning. 09/16/2024 09/16/2025 Activeascorbic acid 500 mg oral tablet (20 sources)Vitamin CStart: 12-27-2024 End: 23-66-4240vpgc 1 tablet by mouth once dailyAscorbic Acid (Vitamin C) (Vitamin C) 500 mg Tablet Active 500 MG PO Daily January 1057:45am Complies with drug therapytake 1 tablet by mouth once dailyAscorbic Acid (vitamin C) 250 MG tablet Take 250 mg by mouth Daily ActiveAspir-81 (7 sources)Aspir-81 Activecalcium carbonate 1500 mg / cholecalciferol 800 unt chewable tablet (20 sources)Vitamin DStart: 73-15-4503ruvd 1 tablet by mouth once dailyCalcium Carbonate-Vitamin D3 (Caltrate 600 Plus D) 600 mg-20 mcg (800 unit) tablet,chewable Active 1 TAB PO Daily January 19, 2025 11:00pm Complies with drug therapyStart: 85-56-5971Lcklc: 12-27-2024 End: 13-57-6502vill 1 tablet by mouth once at mealtimeCalcium Carbonate-Vitamin D3 (Oyster Shell Calcium-Vit D3) 500 mg-5 mcg (200 unit) Tablet Discontinued 1 TAB PO 3x/Day with meals January 10, 2025 7:45am January 20, 2025 10:07am Calcium Carbonate / Vitamin D (8 sources)Calcium Carbonate-Vitamin D (CALTRATE 600+D PO) Take by mouth Active Calcium Carbonate-Vitamin D3 (Oyster Shell Calcium-Vit D3) 500 mg-5 mcg (200 unit) Tablet (1 source)Start: 06-96-5521wldr 1 tablet by mouth once at mealtimeCalcium Carbonate-Vitamin D3 (Oyster Shell Calcium-Vit D3) 500 mg-5 mcg (200 unit) Tablet Active 1 TAB PO 3x/Day with meals December 27, 2024 12:00amContour Next Test - (17 sources)Contour Next Test - as directed In Vitro Activeezetimibe 10 mg oral tablet (20 sources)Dietary Cholesterol Absorption InhibitorStart: 03-03-2023 End: 42-85-4771hdae 1 tablet by mouth once dailyEzetimibe 10 mg tablet Active 10 MG PO Daily February 29, 2024 11:00pm Complies with drug therapyferrous sulfate 324 mg delayed release oral tablet (20 sources)Start: 18-11-4483lhcy 1 tablet by mouth once dailyFerrous Sulfate 324 mg (65 mg iron) Tablet,Delayed Release (Dr/Ec) Active 324 MG PO Daily 90 90 0 January 09, 2025 11:00pm Complies with drug therapyStart: 12-15-2023 End: 89-26-0217tvtg 1 tablet by mouth once dailyFerrous Sulfate 325 mg (65 mg iron) tablet,delayed release (DR/EC) Discontinued 325 MG PO Daily December 15, 2023 12:00am March 01, 2024 10:17amStart: 06-09-2021 End: 40-15-0728bajr 1 tablet by mouth once dailyFerrous Sulfate 324 mg (65 mg iron) Tablet,Delayed Release (Dr/Ec) Discontinued 324 MG PO Daily 30 30 0 June 08, 2021 11:00pm July 21, 2022 7:06amtake 1 tablet by mouth once daily Ferrous Sulfate 325 (65 Fe) MG 1 tablet Orally Once a day Active Dowiwbacqiz-Ptzuvglcp-Mnawrd (Trelegy Ellipta) 200-62.5-25 MCG/ACT aerosol powder (20 sources)Kapzdnanhju-Xbuhbdwyn-Yqxgum (Trelegy Ellipta) 200-62.5-25 MCG/ACT aerosol powder Inhale ZtmqgfGzpklhxocjq-Pkdtyseaq-Bsuhgcrh (8 sources)Start: 53-08-0363Ufzmliemzbk-Umeclidin-Vilanter (Trelegy Ellipta) 200-62.5-25 mcg blister with device Active 0 .ROUTE .COMPLEX 180 March 07, 2025 12:09pm USE 1 INHALATION BY MOUTH DAILY Complies with drug therapyStart: 33-66-9991Wjuxw: 04-10-4043Xawonnriqqq-Umeclidin-Vilanter (Trelegy Ellipta) 200-62.5-25 mcg blister with device Active 0 .ROUTE .COMPLEX 180 March 07, 2025 1:09pm USE 1 INHALATION BY MOUTH DAILY Complies with drug therapyStart: 25-88-3621nelgxjuhqt 40 mg oral tablet (20 sources)Loop DiureticStart: 04-17-2025 End: 76-48-1318hiwq 1 tablet by mouth once daily in the morningFurosemide (Lasix) 40 mg tablet Active 40 MG PO Every morning 90 1 April 17, 2025 3:21pm Complies with drug therapyStart: 02-28-2025 End: 82-13-5984Kvhdwntdku 80 mg tablet Discontinued 40 MG PO Daily February 28, 2025 12:00pm April 17, 2025 3:20pmStart: 01-10-2025 End: 94-85-3547lxuo 1 tablet by mouth once dailyFurosemide 40 mg Tablet Discontinued 40 MG PO Daily at 0800 90 90 0 January 09, 2025 11:00pm January 20, 2025 10:08amStart: 10-05-2023 End: 06-41-9607pwduvgnhtd (Lasix) 80 MG tablet 12/21/2024 ActivehydrALAZINE hydrochloride 25 mg oral tablet (20 sources)Arteriolar VasodilatorStart: 92-94-2386bdgz 2 tablets by mouth three times dailyHydralazine 25 mg tablet Active 50 MG PO Three times daily July 08, 2025 8:32am Complies with drug therapyStart: 04-17-2025 End: 87-91-4622azdt 1 tablet by mouth twice dailyHydralazine 25 mg tablet Discontinued 25 MG PO Twice daily April 16, 2025 11:00pm July 08, 2025 8:32amStart: 04-07-2025 End: 80-41-5233qhkq 2 tablets by mouth twice dailyHydralazine 10 mg tablet Discontinued 20 MG PO Twice daily April 07, 2025 7:59am April 17, 2025 3:19pm Start: 02-25-2025 End: 34-85-7027cnju 1 tablet by mouth twice dailyHydralazine 10 mg tablet Discontinued 10 MG PO Twice daily February 28, 2025 12:01pm April 07, 2025 8:00am Start: 06-09-2021 End: 74-39-2959frxw 1 tablet by mouth three times dailyHydralazine 100 mg tablet Discontinued 100 MG PO Three times daily 90 30 0 June 08, 2021 11:00pm February 28, 2025 12:01pm On Hold: Resume on 01/24/25. hold until resumed by PCP or nephrologyStart: 06-09-2021 End: 32-28-8906ttev 2 tablets by mouth three times dailyHydralazine 50 mg Tablet Discontinued 100 MG PO Three times daily 0 0 June 08, 2021 11:00pm August 02, 2021 12:38pmStart: 06-09-2021 End: 68-86-4408mbxk 100 mg by mouth three times dailyHydralazine Discontinued 100 MG PO Three times daily 0 June 09, 2021 12:00am August 02:38pm isosorbide dinitrate 10 mg oral tablet (20 sources)Nitrate VasodilatorStart: 10-03-8306upws 1 tablet by mouth three times dailyIsosorbide Dinitrate 10 mg tablet Active 10 MG PO Three times daily July 08, 2025 8:32am allow nitrate-free interval of 12-14 hrs per 24-hr period Complies with drug therapyStart: 04-07-2025 End: 06-48-1746adzw 1 tablet by mouth twice dailyIsosorbide Dinitrate 10 mg tablet Discontinued 10 MG PO Twice daily 60 30 0 April 06, 2025 11:00pm July 08, 2025 8:32am allow nitrate-free interval of 12-14 hrs per 24-hr periodStart: 07-21-2022 End: 09-64-2166zklq 1 tablet by mouth three times dailyIsosorbide Dinitrate 10 mg tablet Discontinued 10 MG PO Three times daily July 20, 2022 11:00pmJun2024 8:16am On Hold: Resume on 01/24/25. hold until resumed by PCP or nephrologyStart: 06-09-2021 End: 83-57-6043izar 1 tablet by mouth three times dailyIsosorbide Dinitrate 10 mg Tablet Discontinued 10 MG PO Three times daily 90 30 0 June 08, 2021 11:00pm August 31, 2021 8:56amlevothyroxine sodium 0.05 mg oral tablet (20 sources)l-ThyroxineStart: 07-01-2025 End: 36-34-4603amue 1 tablet by mouth once dailyLevothyroxine 50 mcg tablet Active 50 MCG PO Daily 90 90 3 July 08, 2025 8:41am Complies with drug therapyStart: 02-20-2025 End: 39-75-0629mkxv 1 tablet by mouth once dailyLevothyroxine 25 mcg tablet Discontinued 25 MCG PO Daily 90 90 3 May 19, 2025 3:58pm July 01, 2025 12:03pmlevothyroxine (Tirosint) 25 MCG capsule Take by mouth in the morning. Take before meals. Uxmoqd14 hr metoprolol succinate 100 mg extended release oral tablet (20 sources)beta-Adrenergic BlockerStart: 77-68-5088stul 1 tablet by mouth once dailyMetoprolol Succinate 100 mg tablet extended release 24 hr Active 100 MG PO Daily January 19, 2025 11:00pm Complies with drug therapyStart: 01-10-2025 End: 23-25-0381gjqv 1 tablet by mouth once dailyMetoprolol Succinate 25 mg Tablet Extended Release 24 Hr Discontinued 25 MG PO Daily 90 90 0 January 09, 2025 11:00pm January 20, 2025 10:09amStart: 12-15-2023 End: 74-71-5167fpeb 1 tablet by mouth once dailyMetoprolol Succinate 100 mg tablet extended release 24 hr Discontinued 100 MG PO Daily December 15, 2023 12:00am January 10, 2025 7:46amStart: 08-02-2021 End: 02-70-7762Jsqnjcbqpu Succinate 50 mg tablet extended release 24 hr Discontinued 100 MG PO Daily July 11:00pm December 15, 2023 1:46pm Start: 08-02-2021 End: 76-86-8960tmcd 100 mg by mouth once dailyMetoprolol Succinate Discontinued 100 MG PO Daily August 02, 2021 12:00am December 15, 2023 2:46pmStart: 06-09-2021 End: 33-35-2470sbcc 1 tablet by mouth once dailyMetoprolol Succinate 25 mg Tablet Extended Release 24 Hr Discontinued 25 MG PO Daily 30 30 0 2020 11:00pm August 02, 2021 12:37pmtake 2 tablets by mouth every twenty-four hours in the morningmetoprolol succinate XL (TOPROL-XL) 50 mg 24 hr tablet Take 2 tablets (100 mg total) by mouth in the morning. Activeniacin 500 mg oral tablet (20 sources)Nicotinic AcidStart: 85-51-3166ellm 1 tablet by mouth once daily Niacin 500 mg Tablet Active 500 MG PO Daily 30 30 0 June 08, 2021 11:00pm Complies with drug therapypaxlovid (300/100) 20 x 150 mg & 10 x 100mg tablet therapy pack (2 sources)Start: 77-37-1183kabg 3 tablets by mouth every twelve hoursPaxlovid (300/100) 20 x 150 MG & 10 x 100MG 3 tablets Orally Twice a day for 5 day(s) Dec, Activemicroencapsulated potassium chloride 10 meq extended release oral tablet (20 sources)Start: 01-28-2025 End: 29-01-1627wwqg 1 tablet by mouth once dailyPotassium Chloride 10 mEq tablet,ER particles/crystals Active 10 MEQ PO daily 90 90 3 April 07, 2025 8:17am Complies with drug therapyStart: 10-15-2024 End: 79-28-5319iuvc 1 tablet by mouth once dailyPotassium Chloride 10 mEq tablet,ER particles/crystals Discontinued 0 .ROUTE .COMPLEX 90 3 2023 2:36pm January 10, 2025 7:38am TAKE 1 TABLET BY MOUTH DAILYStart: 06-09-2021 End: 45-86-0804Iotfahado Chloride (Klor-Con 10) 10 mEq Tablet Extended Release Discontinued 10 MEQ PO Daily June 08, 2021 11:00pm October 15, 2024 2:36pmPotassium Chloride 10 mEq tablet,ER particles/crystals (2 sources)Start: 53-90-8788mhnb 1 tablet by mouth once dailyPotassium Chloride 10 mEq tablet,ER particles/crystals Active 0 .ROUTE .COMPLEX 90 October 15, 2024 3:36pm TAKE 1 TABLET BY MOUTH DAILYrivaroxaban 15 mg oral tablet (15 sources)Factor Xa InhibitorStart: 70-73-2802uwri 1 tablet by mouth once daily at dinnerRivaroxaban (Xarelto) 15 mg tablet Active 15 MG PO Daily April 06, 2025 11:00pm must administer with evening meal Complies with drug therapy TRELEGY ELLIPTA 200-62.5-25 mcg blister with device (5 sources)Start: 14-03-1424opnn 1 puff(s) by inhalation in the morningTRELEGY [...] Tablet) } Pack [Paxlovid 5-Day] (12 sources)Start: 54-40-0693wwet 3 tablets by mouth every twelve hoursPaxlovid (300/100) 20 x 150 MG & 10 x 100MG 3 tablets Orally Twice a day for 5 day(s) Dec, Active (20 sources)Start: 67-10-4662Dwhms: 01-20-2025 End: 51-98-2992Rbwoq: 01-10-2025 End: 14-03-6223Oxncd: 56-92-4510Zzqou: 12-27-2024 End: 82-97-5574Vhvuv: 16-11-1452Ljsvx: 12-27-2024 End: 63-37-4980Fsisf: 10-15-2024 End: 14-20-8712Mveti: 41-57-5425Kxnqz: 08-02-2021 End: 01-26-3805Kjncr: 06-09-2021 End: 53-71-9868Nnqau: 06-09-2021 End: 08-02-2021 Completed/Discontinued Medications MedicationDrug Class(es)DatesSig (Normalized)Sig (Original)acetaminophen 500 mg oral tablet (20 sources)Start: 01-10-2025 End: 53-47-5319vxkx 1 tablet by mouth every four hours as needed for pain Acetaminophen 500 mg Tablet Discontinued 500 MG PO Q4H as needed for Pain 0 0 January 09, 2025 11:00pm January 28, 2025 1:33pmStart: 08-12-2024 End: 32-97-3982bgkb 2 tablets by mouth every eight hours as needed for pain Acetaminophen (Acetaminophen Extra Strength) 500 mg tablet Discontinued 1000 MG PO Every 8 hours asneeded for pain August 11, 2024 11:00pm January 10, 2025 7:46amStart: 06-09-2021 End: 01-79-5522sciu 1 tablet by mouth every six hours as needed for pain Acetaminophen 500 mg Tablet Discontinued 500 MG PO Q6H as needed for Pain 120 30 0 June 08, 2021 11:00pm July 14, 2021 7:42amacetaminophen 325 mg / HYDROcodone bitartrate 5 mg oral tablet (20 sources)Opioid AgonistStart: 08-22-2021 End: 17-81-8565xefz 1 tablet by mouth every six hours as needed for pain Hydrocodone-Acetaminophen 5-325 mg Tablet Discontinued 1 TAB PO Q6H as needed for Pain 28 7 0 August 22, 2021 August 31, 2021 8:56am Other acute postprocedural pain Other acute postprocedural painStart: 08-22-2021 End: 90-68-1578ochbofpds 0.83 mg/ml inhalation solution (17 sources)beta2-Adrenergic AgonistStart: 12-27-2024 End: 53-52-3058caaj 2.5 mg by inhalation every two hours as neededAlbuterol Sulfate 2.5 mg /3 mL (0.083 %) Solution For Nebulization Discontinued 2.5 MG INHALATION Q2H as needed for Shortness Of Breath 90 0 December 26, 2024 11:00pm January 10, 2025 7:46amStart: 12-27-2024 End: 84-10-9157insehqtogaj 100 mg oral tablet (20 sources)Xanthine Oxidase InhibitorStart: 06-09-2021 End: 31-91-5207bpgm 1 tablet by mouth once dailyAllopurinol 100 mg tablet Discontinued 100 MG PO Daily 90 90 3 June 05, 2024 9:39pm December 7:45amamLODIPine 10 mg oral tablet (20 sources)Dihydropyridine Calcium Channel BlockerStart: 01-28-2025 End: 53-26-5862rwvb 1 tablet by mouth once dailyAmlodipine 10 mg tablet Discontinued 10 MG PO Daily January 27, 2025 11:00pm April 17, 2025 3:20pm On Hold: NoneStart: 01-20-2025 End: 91-84-5071hpts 1 tablet by mouth once dailyAmlodipine 10 mg tablet Discontinued 10 MG PO Daily January 19, 2025 11:00pm January 20, 2025 10:25am Start: 07-21-2022 End: 01-29-2049nxjf 1 tablet by mouth once dailyAmlodipine 10 mg tablet Discontinued 10 MG PO Daily July 20, 2022 11:00pm January 10, 2025 7:46am Start: 08-02-2021 End: 32-28-6615oker 1 tablet by mouth once dailyAmlodipine 10 mg tablet Discontinued 10 MG PO Daily August 01, 2021 11:00pm August 31, 2021 8 :54am htnStart: 06-09-2021 End: 17-59-0278qxrh 1 tablet by mouth once dailyAmlodipine 5 mg Tablet Discontinued 5 MG PO Daily 30 30 0 June 08, 2021 11:00pm August 02, 2021 12:35pmamoxicillin 500 mg / clavulanate 125 mg oral tablet (17 sources)Penicillin-class AntibacterialStart: 12-27-2024 End: 00-86-4703cazz 1 tablet by mouth twice dailyAmoxicillin-Pot Clavulanate 500-125 mg Tablet Discontinued 1 TAB PO Twice daily 4 2 0 December 26, 2024 11:00pm January 10, 2025 7:46amStart: 12-27-2024 End: 54-31-5449Mauip Ellipta (20 sources)Start: 08-02-2021 End: 59-12-0155veen 62.5 ug by inhalation once dailyAnoro Ellipta Discontinued 62.5 MCG INHALATION Daily August 02, 2021 12:40pm March 03, 2023 12:44pm copd Start: 08-02-2021 End: 80-46-4901aodp 62.5 ug by inhalation once dailyAnoro Ellipta Discontinued 62.5 MCG INHALATION Daily August 02, 2021 1:40pm March 03, 2023 1:44pmStart: 08-02-2021 End: 87-77-5569tcvk 62.5 ug by inhalation once dailyAnoro Ellipta Discontinued 62.5 MCG INHALATION Daily August 02, 2021 12:40pm March 03, 2023 12:44pm Start: 45-00-0441txbd 62.5 ug by inhalation once dailyAnoro Ellipta Active 62.5 MCG INHALATION Daily August 02, 2021 12:40pmStart: 79-20-1830veyx 62.5 ug by inhalation once dailyAnoro Ellipta Active 62.5 MCG INHALATION Daily August 02, 2021 1:40pmStart: 06-09-2021 End: 51-53-5564rckx 62.5 ug by inhalation once dailyAnoro Ellipta Discontinued 62.5 mcg inhalation Daily 0 June 08, 2021 11:00pm August 02985149:40pm Start: 06-09-2021 End: 15-80-9850pehx 62.5 ug by inhalation once dailyAnoro Ellipta Discontinued 62.5 mcg inhalation Daily 0 June 09, 2021 12:00am August 02:40pm apixaban 2.5 mg oral tablet (20 sources)Factor Xa InhibitorStart: 03-03-2023 End: 31-14-6925togp 1 tablet by mouth twice dailyApixaban (Eliquis) 2.5 mg Tablet Discontinued 2.5 MG PO Twice daily 180 90 0 January 09, 2025 11:00pm April 07, 2025 7:59amStart: 28-09-1853rqeb 1 tablet by mouth in the morning, then take 1 tablet by mouth at bedtimeapixaban (ELIQUIS) 5 mg tablet Take 1 tablet (5 mg total) by mouth in the morning and 1 tablet (5 mg total) before bedtime. 02/16/2023 Activeaspirin 325 mg oral tablet (20 sources)Platelet Aggregation Inhibitor, Nonsteroidal Anti-inflammatory Drug Start: 12-15-2023 End: 45-37-9631jink 1 tablet by mouth once dailyAspirin 325 mg tablet Discontinued 325 MG PO Daily December 15, 2023 12:00am December 15, 2023 1:44pm Start: 02-25-2022 End: 37-78-0560dzsw 1 tablet by mouth once dailyAspirin 81 mg Tablet,Delayed Release (Dr/Ec) Discontinued 81 MG PO Daily February 24, 2022 11:00pm September 01, 2023 1:51pmStart: 06-09-2021 End: 53-67-3672ymye 1 tablet by mouth once dailyAspirin 81 mg Tablet,Delayed Release (Dr/Ec) Discontinued 81 MG PO Daily 30 30 0 June 08, 2021 11:00pm August 02, 2021 12:37pmtake 1 tablet by mouth once daily as neededAspirin 325 mg 325 mg one tab orally daily Not-Taking/PRNtake 1 tablet by mouth once daily Aspirin 325 mg 325 mg one tab orally daily Not-Takingazithromycin 250 mg oral tablet (17 sources)Macrolide AntimicrobialStart: 12-27-2024 End: 07-74-5056hrbv 2 tablets by mouth every twenty-four hoursAzithromycin 250 mg Tablet Discontinued 500 MG PO Q24H 4 2 0 December 26, 2024 11:00pm January 10, 2025 7:46ambenazepril hydrochloride 40 mg oral tablet (20 sources)Angiotensin Converting Enzyme InhibitorStart: 12-15-2023 End: 29-54-2650yebo 1 tablet by mouth once dailyBenazepril 40 mg tablet Discontinued 40 MG PO Daily December 15, 2023 12:00am September 09, 2024 9:33am Budesonide (20 sources)CorticosteroidStart: 12-15-2023 End: 99-91-3338kpfq 180 ug by inhalation twice dailyBudesonide 180 mcg/actuation aerosol powdr breath activated Discontinued 180 MCG INHALATION Twice daily December 15, 2023 12:00am February 15, 2024 10:22pmStart: 12-15-2023 End: 09-66-1304Joima: 12-15-2023 End: 67-09-2619yplk 180 ug by inhalation twice dailyBudesonide 180 mcg/actuation aerosol powdr breath activated Discontinued 180 MCG INHALATION Twice daily December 15, 2023 1:00am February 15, 2024 11:22pmStart: 12-15-2023 End: 85-41-8077krxh 180 ug by inhalation twice dailyBudesonide Discontinued 180 MCG INHALATION Twice daily December 15, 2023 1:00am February 15, 2024 11:22pmStart: 08-02-2021 End: 37-97-9006Dzjzqivpoe (Pulmicort Flexhaler) 180 mcg/actuation aerosol powdr breath activated Discontinued 360 MCG INHALATION Twice daily August 01, 2021 11:00pm March 03, 2023 12:44pm copdStart: 08-02-2021 End: 27-22-5094Pgait: 08-02-2021 End: 57-96-0227Ugkctdbibu (Pulmicort Flexhaler) 180 mcg/actuation aerosol powdr breath activated Discontinued 360 MCG INHALATION Twice daily August 02, 2021 12:00am March 03, 2023 1:44pmStart: 08-02-2021 End: 23-36-1431Fzuiiqrccl (Pulmicort Flexhaler) 180 mcg/actuation aerosol powdr breath activated Discontinued 360 MCG INHALATION Twice daily August 01, 2021 11:00pm March 03, 2023 12:44pmStart: 32-93-4444Jgmnmwyfjk (Pulmicort Flexhaler) 180 mcg/actuation aerosol powdr breath activated Active 360 MCG INHALATION Twice daily August 01, 2021 11:00pmStart: 84-12-0430Xafgwjzgoh (Pulmicort Flexhaler) 180 mcg/actuation aerosol powdr breath activated Active 360 MCG INH ALATION Twice daily August 02, 2021 12:00amStart: 06-09-2021 End: 93-31-5724hplc 360 ug by inhalation twice dailyBudesonide Inhalation Discontinued 360 mcg inhalation Twice daily 0 June 08, 2021 11:00pm August 02, 2021 12:40pmStart: 06-09-2021 End: 44-84-8980qzqh 360 ug by inhalation twice dailyBudesonide Inhalation Discontinued 360 mcg inhalation Twice daily 0 June 09, 2021 12:00am August 02, 2021 1:40pmStart: 06-01-2021 End: 99-71-9626Vfmrp: 06-01-2021 End: 22-97-4242loel 180 ug by inhalation twice dailyBudesonide (Pulmicort Flexhaler) 180 mcg/actuation Aerosol Powdr Breath Activated Discontinued 2 INH INHALATION Twice daily May 31, 2021 11:00pm June 09, 2021 11:48amStart: 06-01-2021 End: 00-52-3861xgtt 180 ug by inhalation twice dailyBudesonide (Pulmicort Flexhaler) 180 mcg/actuation Aerosol Powdr Breath Activated Discontinued 2 INH INHALATION Twice daily June 01, 2021 12:00am June 09, 2021 12:48pmtake 1 puff(s) by inhalation twice dailyPulmicort Flexhaler 180 MCG/ACT 1 puff Inhalation Twice a day ActivePulmicort Not-Taking/PRNPulmicort Not-Taking bumetanide 1 mg oral tablet (20 sources)Loop DiureticStart: 06-09-2021 End: 21-11-1274Kkdfzvjita 1 mg Tablet Discontinued 1 MG PO Q48H 15 30 0 June 08, 2021 11:00pm August 02, 2021 12:40pmStart: 06-09-2021 End: 94-27-2278xshb 1 tablet by mouth once dailyBumetanide 1 mg tablet Discontinued 2 MG PO Daily December 15, 2023 1:39pm December 18, 2023 10:32amStart: 06-09-2021 End: 44-87-4242qxbw 2 mg by mouth once dailyBumetanide Discontinued 2 MG PO Daily December 15, 2023 2:39pm December 18, 2023 11:32am End: 11-64-8838mrhe 1 tablet by mouth once dailybumetanide (Bumex) 2 MG tablet Take 2 mg by mouth Daily 05/26/2025 Discontinued (Discontinued by another clinician)Bumex 1 MG 2 Orally Once a day Activecarvedilol 25 mg oral tablet (17 sources)alpha-Adrenergic [place], beta-Adrenergic BlockerCarvedilol 25 MG Orally Not-Taking/PRNcefTRIAXone 2000 mg injection (20 sources)Cephalosporin AntibacterialStart: 06-09-2021 End: 84-45-9166cwcb 2 g intravenously every twenty-four hoursCeftriaxone 2 gram Recon Soln Discontinued 2 GM IV Q24H 0 0 June 08, 2021 11:00pm July 14, 2021 7:41amcephalexin 500 mg oral capsule (8 sources)Cephalosporin AntibacterialStart: 03-25-2025 End: 18-31-7599lpam 1 capsule by mouth twice dailyCephalexin 500 mg capsule Discontinued 500 MG PO Twice daily 14 7 0 March 24, 2025 11:00pm April 07, 2025 7:54amcholecalciferol 0.125 mg oral tablet (20 sources)Vitamin DStart: 12-15-2023 End: 77-81-6877kwgn 1 tablet by mouth once dailyCholecalciferol (Vitamin D3) 125 mcg (5,000 unit) tablet Discontinued 5000 UNIT PO Daily December 12:00am January 10, 2025 7:46amStart: 06-09-2021 End: 65-73-3330xpcz 1 capsule by mouth once dailyCholecalciferol (Vitamin D3) 125 mcg (5,000 unit) Capsule Discontinued 125 MCG PO Daily 30 30 0 June 08, 2021 11:00pm December 15, 2023 1:47pmtake 1 tablet by mouth in the morning cholecalciferol, vitamin D3, 5,000 units tablet Take 1 tablet (5,000 Units total) by mouth in the morning. ActivecloNIDine hydrochloride 0.1 mg oral tablet (17 sources)Central alpha-2 Adrenergic Agonisttake 1 tablet by mouth every twenty-four hourscloNIDine HCl 0.1 MG 1 tablet at bedtime Orally Once a day Not-Taking/PRNdocusate sodium 100 mg oral capsule (17 sources)Start: 12-27-2024 End: 88-17-7081qocd 1 capsule by mouth twice dailyDocusate Sodium 100 mg Capsule Discontinued 100 MG PO Twice daily 60 0 December 26, 2024 11:00pm January 10, 2025 7:70pqQfpcmwgakvg-Jejicdjbi-Phrqrmcp (20 sources)Start: 02-15-2024 End: 88-24-4822Vycenbppxlq-Umeclidin-Vilanter (Trelegy Ellipta) 200-62.5-25 mcg blister with device Discontinued 1INH INHALATION Daily February 14, 2024 11:00pm March 07, 2025 12:09pmStart: 02-15-2024 End: 24-80-2760Xvtlmgmxjyp-Umeclidin-Vilanter (Trelegy Ellipta) 200-62.5-25 mcg blister with device Discontinued 1INH INHALATION Daily February 15, 2024 12:00am March 07, 2025 1:09pmStart: 02-15-2024 End: 03-27-8267Cxqvk: 65-21-4446Gkpsq: 03-02-4569Gvnjkizaroh-Umeclidin-Vilanter (Trelegy Ellipta) 200-62.5-25 mcg blister with device Active 1 INH INHALATION Daily February 15, 2024 12:00amlidocaine 0.04 mg/mg medicated patch (20 sources)Antiarrhythmic, Amide Local AnestheticStart: 06-09-2021 End: 53-80-5636cuben 1 dose topically once dailyLidocaine (Lidocaine Pain Relief) 4 % Adhesive Patch,Medicated Discontinued 2 PATCH TOPICAL Daily June 08, 2021 11:00pm July 14, 2021 7:41amlinagliptin 5 mg oral tablet (17 sources)Dipeptidyl Peptidase 4 Inhibitortake 1 tablet by mouth every twenty- four hoursTradjenta 5 MG 1 tablet Orally Once a day Not-Taking/PRNlosartan potassium 25 mg oral tablet (20 sources)Angiotensin 2 Receptor BlockerStart: 08-08-2024 End: 55-65-3212weec 1 tablet by mouth once dailyLosartan 25 mg tablet Discontinued 25 MG PO Daily August 11, 2024 11:00pm April 07, 2025 8:17amOn Hold: Resume on 01/24/25. hold until resumed by PCP or nephrologymethIMAzole 10 mg oral tablet (20 sources)Thyroid Hormone Synthesis InhibitorStart: 04-22-2024 End: 02-02-3325vrbb 5 mg by mouth every other dayMethimazole 10 mg tablet Discontinued 5 MG PO .every other day August 11, 2024 11:00pm September 16, 2024 5:32pmStart: 10-27-7265fssc 5 mg by mouth every other dayMethimazole Active 5 MG PO .QOD 08 14April 22, 2024 11:06amStart: 04-17-2024 End: 32-93-3320tesj 0.5 tablet by mouth once dailyMethimazole 10 mg tablet Discontinued 0 .ROUTE .COMPLEX 15 April 17, 2024 4:53pm April 22, 2024 10:07am take 1/2 tablet by mouth once daily for 30 DAYSStart: 02-08-2024 End: 35-45-2252zrzd 0.5 tablet by mouth every other daymethIMAzole (TAPAZOLE) 10 mg tablet Take 0.5 tablets (5 mg total) by mouth every other day. 02/08/2024 ActiveStart: 02-01-2024 End: 00-35-4839ldqw 5 mg by mouth every other dayMethimazole Discontinued 5 MG PO .QOD February 01, 2024 3:47pm April 17, 2024 5:53pmStart: 12-15-2023 End: 88-49-0830dqkb 5 mg by mouth every other dayMethimazole 10 mg tablet Discontinued 5 MG PO .QOD February 01, 2024 2:47pm April 17, 2024 4:53pmStart: 12-15-2023 End: 93-61-4265rupj 5 mg by mouth once dailyMethimazole 10 mg tablet Discontinued 5 MG PO Daily December 15, 2023 12:00am February 01, 2024 2:47pmStart: 12-15-2023 End: 72-03-1151nvac 5 mg by mouth once dailyMethimazole Discontinued 5 MG PO Daily December 15, 2023 1:00am February 01, 2024 3:47pmStart: 84-06-8506vgfv 0.5 tablet by mouth once dailymethIMAzole 10 MG 1/2 tablet Orally Once a day Sep, ActiveStart: 02-25-2022 End: 00-71-2344ducr 4 tablets by mouth twice dailyMethimazole 5 mg Tablet Discontinued 20 MG PO Twice daily February 24, 2022 11:00pm December 15, 2023 1:46pm Start: 02-25-2022 End: 90-65-9208xksh 20 mg by mouth twice dailyMethimazole Discontinued 20 MG PO Twice daily February 25, 2022 12:00am December 15, 2023 2:46pm End: 69-84-4780vtzx 1 tablet by mouth in the morning, then take 1 tablet by mouth in the evening, then take 1 tablet by mouth at bedtimemethIMAzole (Tapazole) 10 MG tablet Take 10 mg by mouth in the morning and 10 mg in the evening and10 mg before bedtime. 05/26/2025 Discontinued (Discontinued by another clinician)Multivitamin With Folic Acid (Thera) 400 mcg Tablet (8 sources)Start: 12-27-2024 End: 39-72-8422jfum 1 tablet by mouth once dailyMultivitamin With Folic Acid (Thera) 400 mcg Tablet Discontinued 1 TAB PO Daily December 26, 2024 11:00pm January 28, 2025 1:35pmStart: 12-27-2024 End: 99-96-9686eeax 1 tablet by mouth once dailyMultivitamin With Folic Acid (Thera) 400 mcg Tablet Discontinued 1 TAB PO Daily December 272:00am January 28, 2025 2:35pmStart: 73-26-3159kjua 1 tablet by mouth once daily Multivitamin With Folic Acid (Thera) 400 mcg Tablet Active 1 TAB PO Daily December 27, 2024 12:00amoxyCODONE hydrochloride 5 mg oral tablet (20 sources)Opioid AgonistStart: 12-27-2024 End: 18-28-9897zmyq 2 tablets by mouth every four hours as needed for pain Oxycodone 5 mg Tablet Discontinued 10 MG PO Every 4 hours as needed for Pain Scale 6 - 10 30 30 0 December 27, 2024 January 10, 2025 7:46am Fracture of neck of femurStart: 12-27-2024 End: 12-31-3448oevy 1 tablet by mouth every four hours as needed for pain Oxycodone 5 mg Tablet Discontinued 5 MG PO Every 4 hours as needed for Pain Scale 1 - 5 30 30 0 December 27, 2024 January 10, 2025 7:46am Fracture of neck of femurStart: 06-09-2021 End: 86-44-3764yybt 1 tablet by mouth every six hours as needed for pain Oxycodone 5 mg Tablet Discontinued 5 MG PO Q6H as needed for Pain 28 7 0 June 09, 2021 August 02, 2021 12:40pm Back pain Dorsalgia, unspecifiedStart: 06-09-2021 End: 62-03-6443eyumhtmzcyfv glycol 3350 12107 mg powder for oral solution (20 sources)Osmotic LaxativeStart: 12-27-2024 End: 36-42-0881Rkyfluyjxbhs Glycol 3350 (Healthylax) 17 gram Powder In Packet Discontinued 17 GM PO Daily 30 0 December 26, 2024 11:00pm January 10, 2025 7:46amStart: 06-09-2021 End: 14-75-5375Fyohobxbgklp Glycol 3350 (Miralax) 17 gram Powder In Packet Discontinued 17 GM PO Daily 30 30 0 June 08, 2021 11:00pm July 14, 2021 7:40ampropranolol hydrochloride 10 mg oral tablet (20 sources)beta-Adrenergic BlockerStart: 02-25-2022 End: 09-62-7904vuou 1 tablet by mouth three times dailyPropranolol (Inderal) 10 mg Tablet Discontinued 10 MG PO Three times daily February 24, 2022 11:00pm July 21, 2022 7:06amTriamcinolone (20 sources)CorticosteroidStart: 06-96-9587Lrqisei -40 mg Apr, 40 mg Start: 57-63-7272Ryhesty -40 mg Apr, 40 mgStart: 89-98-1410Tjvlgog -40 mg Jan, 40 mg7 actuat umeclidinium 0.0625 mg/actuat / vilanterol 0.025 mg/actuat dry powder inhaler (20 sources)Anticholinergic, beta2-Adrenergic AgonistStart: 12-15-2023 End: 63-78-2982Lfacodkgcjoq-Vilanterol 62.5-25 mcg/actuation blister with device Discontinued 1 INH INHALATION Daily December 15, 2023 12:00am February 15, 2024 10:20pmStart: 12-15-2023 End: 01-33-8615Advtu Ellipta 62.5-25 MCG/ACT USE 1 INHALATION BY MOUTH DAILY ActiveAnoro Ellipta 62.5-25 MCG/ACT USE 1 INHALATION BY MOUTH DAILY Active Problems Active Problems Problem ClassificationProblemDateDocumented DateEpisodic/ChronicAcute and unspecified renal failure (20 sources)Acute kidney failure with tubular necrosis; Translations: [Acute renal failure syndrome]Onset: 521466-32-0192QdkkvlfrKdxcr posthemorrhagic anemia (20 sources)Acute posthemorrhagic anemia; Translations: [Acute posthemorrhagic anemia]95-30-7796UqxchmqgHlzpqarugujhpl/social admission (20 sources)Other reduced mobility; Translations: [Impaired mobility and activities of daily living]Onset: 739819-10-7624OzqnezprFykaepdqbs pneumonitis; food/vomitus (20 sources)Aspiration pneumonia; Translations: [Pneumonitis due to inhalation of food and vomit]Onset: 745238-24-7599ZnofjmqqAftbvj (4 sources)Uncomplicated moderate persistent asthma; Translations: [Moderate persistent asthma, uncomplicated]ChronicBacterial infection; unspecified site (20 sources)Bacteremia caused by Gram-positive bacteria; Translations: [Bacteremia]Onset: 03-27-2018 Resolved: 651686-53-2125XttssycaByxqye of colon (20 sources)Malignant tumor of colon; Translations: [Malignant neoplasm of colon, unspecified]Onset: 344819-00-9394XnqkisvHbbdwam on above: Hemicolectomy 08/2021,Surveillance colonoscopy 07/2022 (repeat 2 years) Hemicolectomy 08/2021,Surveillance colonoscopy 07/2022, 2023 (repeat 2 years) Cardiac dysrhythmias (20 sources)Atrial fibrillation; Translations: [Unspecified atrial fibrillation] Onset: 205032-24-7702VuxdrdwRymtaqd on above:hx ablationAblation - 10/2019Cardioversion - iV ICD 05/2023,DCCV - 10/2024,Chronic kidney disease (20 sources)Chronic kidney disease stage 3; Translations: [Stage 3 chronic kidney disease]Onset: 154990-02-9085NbgvzzbErofhlr kidney disease (2 sources)Chronic kidney disease; Translations: [Chronic kidney disease, stage 3b]Onset: 00-41-2929Smbjbpu obstructive pulmonary disease and bronchiectasis (20 sources)Chronic obstructive lung disease; Translations: [Chronic obstructive pulmonary disease, unspecified]Onset: 431598-21-9153IgulrltPwbxjlctwxmtg of surgical procedures or medical care (11 sources)Hypotension following procedure; Translations: [Postprocedural hypotension]79-68-2953CxiuqzwkAqefonxsld disorders (20 sources)Cardiac pacemaker in situ; Translations: [Presence of cardiac pacemaker]Onset: 938522-74-4795SsuzjzlJdajykyefk heart failure; nonhypertensive (20 sources)Heart failure with reduced ejection fraction; Translations: [Unspecified systolic (congestive) heart failure]Onset: 202342-29-5536 ChronicComment on above:Echo: LVEF 25%, RV reduced function, RVSP 61, SANJAY, mod MR - 02/2023Echo: LVEF 25%, RV reduced function, RVSP 61, SANJAY, mod MR - 02/2023,Echo: LVEF 20-25%, TRISH, normal RV size/function, RVSP 22 - oronary atherosclerosis and other heart disease (20 sources)Coronary arteriosclerosis; Translations: [Atherosclerotic heart disease of [place] coronary artery without angina pectoris]Onset: 03-09-2022 35-50-4319VonqugkWpkuutsdzc and other anemia (20 sources)Iron deficiency anemia; Translations: [Iron deficiency anemia, unspecified]09-20-5434OavhumigJjidwaapof and other anemia (17 sources)Chronic anemia; Translations: [Anemia, unspecified]12-24-2024 EpisodicDiabetes mellitus with complications (20 sources)Hyperglycemia due to type 2 diabetes mellitus; Translations: [Type 2 diabetes mellitus with hyperglycemia]Onset: 98-43-0762AxdwtcvSzdqzupc mellitus without complication (15 sources)Type 2 diabetes mellitus; Translations: [Type 2 diabetes mellitus without complications]Onset: 685591-30-4229EdpwgloOajgowcnm of lipid metabolism (20 sources)Hypercholesterolemia; Translations: [Pure hypercholesterolemia, unspecified]Onset: 242532-26-2496OgmrocaOurfieohf hypertension (20 sources)Hypertensive disorder; Translations: [Essential (primary) hypertension]Onset: 892538-61-1594FwmqudiKfrwk and electrolyte disorders (7 sources)Hypokalemia; Translations: [Hypokalemia]EpisodicFracture of neck of femur (hip) (20 sources)Fracture of neck of femur; Translations: [Fracture of unspecified part of neck of unspecified femur, initial encounter for closed fracture]Onset: 045431-28-1144YvnprbmzAxjl and other crystal arthropathies (4 sources)Primary gout; Translations: [Acute gouty arthropathy]Onset: 15-57-3318IpudtijTcjdhbznlte of prostate (8 sources)Lower urinary tract symptoms due to benign prostatic hypertrophy; Translations: [Benign prostatic hyperplasia with lower urinary tract symptoms] Onset: 89-77-4593ZoftraeTsjlxvybgedl with complications and secondary hypertension (20 sources)Chronic [...] Translations: [Osteomyelitis of vertebra, lumbar region] Resolved: 188396-88-2010QdxjuvySvcaqcocscgrr mental health disorders (20 sources)Primary insomnia; Translations: [Primary insomnia]Onset: 07-08-2024 08-54-4238JytrhetIbwoupk (4 sources)Onychomycosis; Translations: [Tinea unguium]14-36-6472Joekasqw Neoplasms of unspecified nature or uncertain behavior (6 sources)Neoplasm of colon; Translations: [Neoplasm of unspecified behavior of digestive system]48-71-3551EcgjqxbkQozpffzmeyx deficiencies (1 source)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; 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]Onset: 78-05-3025CysrqimMvhj wounds of extremities (3 sources)Tear of skin; Translations: [Laceration without foreign body of left forearm, initial encounter]20-63-0416RefgblutGjugzcfesimvcw (20 sources)Osteoarthritis of knee; Translations: [Unilateral primary osteoarthritis, left knee]ChronicOther and unspecified benign neoplasm (7 sources)History of polyp of colon; Translations: [Personal history of colonic polyps]EpisodicOther connective tissue disease (17 sources)History of arthroplasty of left knee; Translations: [Presence of left artificial knee joint]ChronicOther connective tissue disease (9 sources)History of repair of hip joint; Translations: [Presence of right artificial hip joint]83-79-5186YduesmhWmcbf connective tissue disease (12 sources)Presence of right artificial hip joint; Translations: [Hip joint replacement]Onset: 960210-88-9417PdqyaxsJrwej connective tissue disease (20 sources)History of total replacement of right hip joint; Translations: [Presence of right artificial hip joint]52-83-5264FoenmjfGelvm connective tissue disease (14 sources)History of hemiarthroplasty of right hip; Translations: [Presence of right artificial hip joint]84-88-7156AjidutsVhrfq connective tissue disease (20 sources)Iliopsoas abscess; Translations: [Psoas muscle abscess]08-31-2021 EpisodicOther connective tissue disease (20 sources)Trochanteric bursitis; Translations: [Trochanteric bursitis, left hip]62-91-4982ArbqsrqnViftv connective tissue disease (3 sources)Trochanteric bursitis, left hip; Translations: [Enthesopathy of hip region]66-74-1023FkaxkzqcWyiad connective tissue disease (7 sources)Trochanteric bursitis of left hip; Translations: [Trochanteric bursitis, left hip]00-45-8468TbtxmrtiFmwff diseases of kidney and ureters (20 sources)Secondary hyperparathyroidism; Translations: [Secondary hyperparathyroidism of renal origin]69-44-2765BjpkwfeGlnpd diseases of kidney and ureters (5 sources)Secondary hyperparathyroidism of renal origin; Translations: [Secondary hyperparathyroidism (of renal origin)]61-07-2108OdxfmytRybea diseases of veins and lymphatics (20 sources)Peripheral venous insufficiency; Translations: [Venous insufficiency (chronic) (peripheral)]84-57-3694PpmifjseOlkrf diseases of veins and lymphatics (1 source)Venous insufficiency (chronic) (peripheral)EpisodicOther ear and sense organ disorders (1 source)Sensorineural hearing loss, bilateral; Translations: [Sensorineural hearing loss, bilateral]89-16-7306OpqnouhMteyp ear and sense organ disorders (1 source)Impacted cerumen of bilateral ears; Translations: [Impacted cerumen, bilateral]84-49-5638NvhsnmvbMrkmc gastrointestinal disorders (19 sources)Constipation; Translations: [Constipation, unspecified]08-31-2021 EpisodicOther gastrointestinal disorders (16 sources)Occult blood in stools; Translations: [Other fecal abnormalities] 21-64-4580DfeyzvckBquls injuries and conditions due to external causes (4 sources)History of fall; Translations: [History of falling]EpisodicOther lower respiratory disease (4 sources)Dyspnea; Translations: [Other forms of dyspnea]EpisodicOther lower respiratory disease (8 sources)Snoring; Translations: [Snoring]13-52-8149QwxzqlivCwiyp lower respiratory disease (8 sources)Hypoxia; Translations: [Hypoxemia]98-69-2871XaspfmouQsxvc nervous system disorders (6 sources)Acute postoperative pain; Translations: [Other acute postprocedural pain]23-97-7207PlizczswGvomx non-traumatic joint disorders (20 sources)Hip pain; Translations: [Pain in left hip]76-90-6553OaovdmflLteww nutritional; endocrine; and metabolic disorders (4 sources)Obesity; Translations: [Obesity, unspecified]ChronicOther nutritional; endocrine; and metabolic disorders (8 sources)Obese class I; Translations: [Body mass index 33.0-33.9, adult]Onset: 44-23-5464RxwkinxIymvb nutritional; endocrine; and metabolic disorders (17 sources)Hyperuricemia; [...] tophaceous diseaseEpisodicOther nutritional; endocrine; and metabolic disorders (10 sources)H/O: thyroid disorder; Translations: [Personal history of other endocrine, nutritional and metabolic disease]69-90-1508WjziydkmFvryq screening for suspected conditions (not mental disorders or infectious disease) (17 sources)Encounter for screening for malignant neoplasm of prostate; Translations: [Blood chemistry abnormal]Onset: 01-03-2023 Resolved: 38-23-1806VarclpyjZuckx skin disorders (4 sources)Dystrophia unguium; Translations: [Nail dystrophy]86-24-4056Ubfhsegh Nolvia-; endo-; and myocarditis; cardiomyopathy (except that caused by tuberculosis or sexually transmitted disease) (20 sources)Nonischemic congestive cardiomyopathy; Translations: [Dilated cardiomyopathy]Onset: 96-36-1271AsnxuzvLxxqqht on above:LHC: nonobstructive coronary disease - 2016s/p ICD - 10/2019, BiV ICD - 8/2022LHC: nonobstructive coronary disease - 2016,s/p ICD - 10/2019, BiV ICD - 8/3Pulmonary heart disease (20 sources)Chronic pulmonary heart disease; Translations: [Other chronic pulmonary heart diseases]Onset: 51-70-0281IbvtcslXigmdjqy codes; unclassified (20 sources)Obstructive sleep apnea syndrome; Translations: [Obstructive sleep apnea (adult) (pediatric)]Onset: 187017-65-6479RlboetbNzecpgbo codes; unclassified (20 sources)Obstructive sleep apnea (adult) (pediatric); Translations: [Obstructive sleep apnea (adult)(pediatric)]Onset: 34-60-1158YakhgmkDkqkbyzj codes; unclassified (20 sources)Hypersomnia; Translations: [Hypersomnia, unspecified]Onset: 409211-71-2069IuldrbdHaivnlau codes; unclassified (20 sources)Patient encounter status; Translations: [Encounter for prophylactic measures, unspecified]65-05-8657PfgmknexXhmpwzu on above:PSA: 0.91 - SA: 0.91 - 07/2024, 0.98 - 02/2025Residual codes; unclassified (6 sources)History of colectomy; Translations: [Acquired absence of other specified parts of digestive tract]77-62-6407RtwzpcypGmduyhkn codes; unclassified (4 sources)Requires influenza virus vaccination; Translations: [Need for prophylactic vaccination and inoculation, Influenza]EpisodicResidual codes; unclassified (4 sources)Tobacco user; Translations: [Tobacco use]EpisodicResidual codes; unclassified (6 sources)Not getting enough sleep; Translations: [Insomnia, unspecified] 59-65-9787PjypsyfrQgzvgrddz and history of mental health and substance abuse codes (9 sources)Personal history of nicotine dependence; Translations: [History of tobacco use]Onset: 60-70-0099EupormjiQwuo and subcutaneous tissue infections (7 sources)Carbuncle; Translations: [Carbuncle, unspecified] Resolved: 724281-24-9228LvthyjfqCzwjakisxhb; intervertebral disc disorders; other back problems (20 sources)Lumbar spondylosis; Translations: [Spondylosis without myelopathy or radiculopathy, lumbar region]ChronicSpondylosis; intervertebral disc disorders; other back problems (6 sources)Backache; Translations: [Dorsalgia, unspecified]12-81-8098Rsevovys Thyroid disorders (20 sources)Thyrotoxicosis; Translations: [Thyrotoxicosis, unspecified without thyrotoxic crisis or storm]Onset: 03-04-2022 Resolved: 59-61-7261UmmczqdBsmwahbatvyw (1 source)CHRN KIDNEY DISEASE STG 3 UNSP; Translations: [CHRN KIDNEY DISEASE STG 3 UNSP]Onset: 28-21-9453Xjtefdgduyzk (1 source)CONTACT W/AND (SUSP) EXPOS COVID-19; Translations: [CONTACT W/AND (SUSP) EXPOS COVID-19]Onset: 44-32-6454Dnkqyrcdtgtp (1 source)A [facility] screening has identified you as FRAIL or [...] Four Ways to Beat the Frailty Risk [email or web address]-[email or web address]- ousk-vy-jkle-the-fra thdy-yhhc14-92-2025 Past or Other Problems Problem ClassificationProblemDateDocumented DateEpisodic/ChronicCancer of colon (1 source)Personal history of other malignant neoplasm of large intestine; Translations: [PERS HX OTH MALIG NEOPLSM LG INTEST]Onset: 17-26-8171Txleagau Deficiency and other anemia (11 sources)Iron deficiency anemia, unspecified; Translations: [Iron deficiency anemia, unspecified]Onset: 803990-00-5149RvwqobrjPodznvhrmf and other anemia (20 sources)Anemia, unspecified; Translations: [Anemia, unspecified]Onset: 999016-56-9390IerxcimwGbfwxndl mellitus without complication (4 sources)Impaired fasting glycemia; Translations: [Impaired fasting glucose] Resolved: 87-15-1035LhogysucFotq wounds of head; neck; and trunk (4 sources)Laceration with foreign body of scalp, subsequent encounter; Translations: [Laceration with foreignbody of scalp, subsequent encounter]Onset: 61-35-8468JxcvyomiLpwfi aftercare (1 source)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 terminal 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; Translations: [OTH ALF CURRENT DRUG THERAPY]Onset: 87-72-5873NxcfkfzrJrokh connective tissue disease (4 sources)Pain in limb; Translations: [Pain in soft tissues of limb]Onset: 29-92-1771CexmzlslXchtz ear and sense organ disorders (4 sources)Impacted cerumen; Translations: [Impacted cerumen, bilateral] Resolved: 41-15-0174FdohnokwMlvbw gastrointestinal disorders (10 sources)Other fecal abnormalities; Translations: [Nonspecific abnormal findings in stool contents]Onset: 932900-91-6639XhbyyidvEmhjk lower respiratory disease (4 sources)Other forms of dyspnea; Translations: [OTHER FORMS OF DYSPNEA]Onset: 24-15-9694QrkkcubaSxocx nervous system disorders (1 source)Tremor, unspecified; Translations: [TREMOR UNSPECIFIED]Onset: 47-49-7685ZuinzoafAezro non-traumatic joint disorders (4 sources)Arthralgia of the ankle and/or foot; Translations: [Pain in joint, ankle and foot]Onset: 96-42-7647FugpkykcBbpbj non-traumatic joint disorders (1 source)Pain in left hip; Translations: [Pain in left hip]Onset: 02-25-2025 EpisodicOther nutritional; endocrine; and metabolic disorders (4 sources)Simple obesity ; Translations: [Other obesity due to excess calories] Resolved: 19-77-1852LfmckttAvrve skin disorders (4 sources)Sebaceous cyst; Translations: [Sebaceous cyst]Onset: 10-02-2014 EpisodicOther upper respiratory infections (4 sources)Acute maxillary sinusitis; Translations: [Acute maxillary sinusitis, unspecified]Onset: 46-74-3863QykvjnnbWplbscduw (except that caused by tuberculosis or sexually transmitted disease) (7 sources)Pneumonia, unspecified organism; Translations: [Pneumonia]Onset: 03-06-2022 Resolved: 26-09-0453GsclrcwtTzkjbzud codes; unclassified (4 sources)Localized edema; Translations: [Localized edema]Onset: 03-13-2019 EpisodicResidual codes; unclassified (3 sources)Other specified health status; Translations: [Other specified health status]Onset: 79-52-1149RdtjrekeHaclnstmhey injury; contusion (4 sources)Contusion of other part of head, subsequent encounter; Translations: [Contusion of other part of head, subsequent encounter]Onset: 72-37-9284Zogftufk Unclassified (7 sources)Other eosinophilia; Translations: [Other eosinophilia]Viral infection (1 source)COVID-19 Results Test NameValueInterpretationReference RangeFacilityOrders Onlyon 08-25-2025 Orders [id number] Delano Oliver 1940 M Date Provider Department Center 08/25/2025 241-[facility]ATR[facility] Family History Problem Relation Age of Onset Diabetes Mother Heart disease Father Glaucoma Brother Diabetes Maternal Grandmother Clotting disorder Other Family Status - Relation Status Age at Mother Father Brother Maternal Grandmother OtherNormalUniversity of Texas [facility] AzleOrders Onlyon 69-29-5239Jzxouy [id number] Delano Oliver 1940 M Date Provider Department Center 08/17/2025 241-[facility]KAYLATRANG [facility] Family History Problem Relation Age of Onset Diabetes Mother Heart disease Father Glaucoma Brother Diabetes Maternal Grandmother Clotting disorder Other Family Status - Relation Status Age at Mother Father Brother Maternal Grandmother OtherNormalUniversity of [facility] Hospital AzleErythrocyte distribution width Auto (RBC) [Ratio]Ordered By: Zahida Flowers on 93-34-3474Ammhgcrwhpj distribution width (RBC) [Ratio]13.4 %11.0-15.0[facility] CampusGlomerular filtration rate (GFR) estimation in non- AmericanOrdered By: Zahida Flowers on 19-34-2224MQH/1.73 sq M.predicted among non-blacks MDRD (S/P/Bld) [Vol rate/Area]24 mL/min/{1.73_m2}Low>=60 mL/min/1.[address]m [address] [place], [place] [address]Hematocrit Auto (Bld) [Volume fraction]Ordered By: Zahida Flowers on 46-37-3419Pwqnyvmsac (Bld) [Volume fraction]38.8 %Low42.0-54.0[facility] CampusHemoglobin [Mass/volume] in BloodOrdered By: Zahida Flowers on 40-94-5011Culwjrtgdx (Bld) [Mass/Vol]12.8 g/dLLow14.0-18.0[facility] CampusIron binding capacity [Mass/volume] in Serum or PlasmaOrdered By: Zahida Flowers on 80-61-3829Shmf binding capacity [Mass/Vol]251.0 ug/dL250.0-450.0 [facility] CampusIron saturation [Mass Fraction] in Serum or PlasmaOrdered By: Zahida Lionel on 17-03-7233Vbob saturation [Mass fraction]33.1 % [facility] CampusLaboratory - Chemistry and Chemistry - challengeOrdered By: Zahida Flowers on 32-97-7359Fkkifca [Mass/Vol]3.8 g/dL3.4-5.0 [facility] CampusCalcium [Mass/Vol]9.1 mg/dL8.5-10.1FCleveland Clinic Union HospitalChloride [Moles/Vol]101 mmol/A87-048OcuchyobdSumma Health [facility] CampusCO2 [Moles/Vol]32.8 mmol/LHigh21.0-32.0[facility] CampusCreatinine [Mass/Vol]2.54 mg/dLHigh0.70-1.30[facility] CampusFerritin [Mass/Vol]350.0 ng/mL26.0-388.0[facility] GFR/1.73 sq M.predicted MDRD (S/P/Bld) [Vol rate/Area]30 mL/min/{1.73_m2}Low>=60 mL/min/1.73m 2FCleveland Clinic Union HospitalGlucose [Mass/Vol]85 mg/uR79-925 [facility] CampusIron [Mass/Vol]83.0 ug/dL65.0-175.0[facility] CampusMagnesium [Mass/Vol]2.4 mg/dL1.8-2.4FCleveland Clinic Union HospitalPotassium [Moles/Vol]3.8 mmol/L3.5-5.1FCoshocton Regional Medical Centerodium [Moles/Vol]143 mmol/S338-026WxuerfnudSumma Health [facility] CampusUrate [Mass/Vol]7.9 mg/dLHigh3.5-7.2FCleveland Clinic Union HospitalUrea nitrogen [Mass/Vol]50.0 mg/dLHigh7.0-18.0[facility] CampusUrea nitrogen/Creatinine [Mass ratio]19.7 mg/mgSumma Health [facility] Campus Bilirubin Ql (U)NegativeNEGMiddletown HospitalGlucose (U) [Mass/Vol]NegativeNEGATIVESumma Health [facility] CampusKetones Ql (U) NegativeNEGMiddletown HospitalpH (U)6.0 [pH]5.0-9.0[facility] Cincinnati Northpecific gravity (U) [Rel density]<=1.005Abnormal 1.005-1.025[facility] CampusUrobilinogen Qn (U)0.2 {Jagruti'U}/dL0.2-1.0[facility] CampusLaboratory - Specimen informationOrdered By: Zahida Flowers on 68-69-2409Anwsfhgtxu (U)CLEARCLEAR [facility] CampusColor (U)LT. YELLOWYELLOWSumma Health Akron CampusLaboratory - UrinalysisOrdered By: Zahida Flowers on 08-13-2025 Hyaline casts LM Ql (Urine sed)RARESumma Health [facility]ron CampusLeukocyte esterase Test strip Ql (U)TRACEAbnormalNEGMiddletown Hospital Mucus Ql (Urine sed)NONE SEENNONE SEENSumma Health [facility] CampusNitrite Ql (U)NegativeNEGMiddletown HospitalProtein (U) [Mass/Vol] 30.5 mg/dLHigh<=11.9[facility] CampusProtein Ql (U)TRACE mg/dL NEG/TRACESumma Health [facility] CampusLeukocytes [#/volume] corrected for nucleated erythrocytes in Blood by Automated counOrdered By: Zahida Flowers on 21-76-9584NIS corrected for nucl RBC Auto (Bld) [#/Vol]6.8 10 3/uL4.0-11.0 [facility] CampusMCH Auto (RBC) [Entitic mass]Ordered By: Zahida Flowers on 03-80-5548IMR (RBC) [Entitic mass]32.0 pg25.9-34.0[facility] CampusMCHC Auto (RBC) [Mass/Vol]Ordered By: Zahida Flowers on 08-13-2025 MCHC (RBC) [Mass/Vol]33.0 g/dL29.9-35.2FCleveland Clinic Union HospitalMCV Auto (RBC) [Entitic vol]Ordered By: Zahida Flowers on 54-00-1213STZ (RBC) [Entitic vol] 97.0 xYAmme16.0-94.0[facility] CampusNo Panel InformationOrdered By: Zahida Flowers on 795557-Zrirvrl Vitamin D Total73.2 ng/mLSumma Health Akron CampusComment on above:<20 ng/mL Vit D ygpezfxmw44-<30 ng/mL Vit D ntbjcvdimrlp01-367 ng/mL Vit D sufficient>100 ng/mL Potential Toxicity Parathyroid Hormone (Intact)83 pg/oUZhfdkbvv10-86CnygahtmrSumma Health Akron CampusComment on above:Performed at: [facility] [place] [id number] Director: Nathan Munoz PhD, Phone: [phone] Phosphorus Level3.9 mg/dL2.6-4.7FCleveland Clinic Union HospitalUrine Bacteria TRACE #/HPFAbnormalNONE [facility] CenterUrine Occult Blood NegativeNEGATIVESumma Health [facility] CampusUrine Other CastsSEEN #/LPF AbnormalNONE [facility] CenterUrine Other CrystalsNone Seen #/HPFNone St. Charles HospitalUrine Random Xfqidvbkum22.62 mg/dL20.00-300.00[facility] CampusUrine RBCNONE SEEN #/HPF0-2 [facility] CampusUrine Squamous Epithelial CellsRARE #/LPF NONE/RARESumma Health Akron CampusUrine WBC0-2 #/HPFAbnormalNONE SEEN [facility] CampusPlatelet mean volume Auto (Bld) [Entitic vol] Ordered By: Zahida Flowers on 35-27-5187Ulrnttad mean volume (Bld) [Entitic vol]9.3 fLLow9.5-13.5FCleveland Clinic Union HospitalPlatelets Auto (Bld) [#/Vol] Ordered By: Zahida Flowers on 42-27-0644Mmhdmpjwf (Bld) [#/Vol]202 10 3/nL620-206 [facility] CampusRBC Auto (Bld) [#/Vol]Ordered By: Zahida Lionel on 01-04-3491VNH (Bld) [#/Vol]4.00 10 6/uLLow4.70-6.10[facility] Northerum or plasma anion gap determinationOrdered By: Zahida Hallr on 39-02-5588Emgev gap [Moles/Vol]13.0 mmol/LFCleveland Clinic Union HospitalUrine protein/creatinine ratioOrdered By: Zahida Flowers on 89-96-8952Qffkzbi/Creatinine (U) [Ratio]1.48[facility] CampusOrders Onlyon 57-79-5636Uvaaas [id number] Delano Oliver 1940 M Date Provider Department Center 07/25/2025 [facility] Family History Problem Relation Age of Onset Diabetes Mother Heart disease Father Glaucoma Brother Diabetes Maternal Grandmother Clotting disorder Other Family Status - Relation Status Age at Mother Father Brother Maternal Grandmother OtherNormalUniversity of [facility] Azle36on [id number] from Leann at Dr. Linda's office. This was the note Dr. Linda sent to her: Leann - Call and discuss Delano's bruising w/ Dr. Degroot's nurse. He developed bruising and swelling shortly [...] Xarelto for [address] Degroot be apposed to holding for another 1-2 days or would he prefer to resume qod schedule as discussed w/ patient. Per Dr. Degroot- ok for patient to hold this as Dr. Linda recommended. Leann made aware.[facility] for RehabilitationBasophils Auto (Bld) [#/Vol] Ordered By: Yas Linda on 25-25-8217Ntrnvdmru (Bld) [#/Vol]0.0 10 3/uL0.0-0.1 [facility] CampusBasophils/100 WBC Auto (Bld)Ordered By: Yas Linda on 51-60-3868Aphizpysb/100 WBC (Bld)0.5 %0.2-2.0[facility] CampusEosinophils/100 WBC Auto (Bld)Ordered By: Yas Linda on 44-21-2225Xclwmxierbb/100 WBC (Bld)3.8 %0.9-7.0[facility] Erythrocyte distribution width Auto (RBC) [Ratio]Ordered By: Yas Linda on 55-41-8145Ypcpuhkjhwj distribution width (RBC) [Ratio]13.4 %11.0-15.0[facility] CampusHematocrit Auto (Bld) [Volume fraction]Ordered By: Yas Linda on 54-33-3140Nchbetuxov (Bld) [Volume fraction]34.3 %Low42.0-54.0 [facility] CampusHemoglobin [Mass/volume] in BloodOrdered By: Yas Linda on 16-32-3106Afviyrxbuy (Bld) [Mass/Vol]11.3 g/dLLow14.0-18.0 [facility] CampusLaboratory - Hematology and Cell countsOrdered By: Yas Linda on 44-50-0225Sjnpgzbc granulocytes/100 WBC (Bld)0.5 %0.0-0.5 [facility] CampusLeukocytes [#/volume] corrected for nucleated erythrocytes in Blood by Automated counOrdered By: Yas Linda on 07-22-2025 WBC corrected for nucl RBC Auto (Bld) [#/Vol]6.7 10 3/uL4.0-11.0[facility] CampusLymphocytes Auto (Bld) [#/Vol]Ordered By: Yas Linda on 73-07-6923Mgdxeijupos (Bld) [#/Vol]1.6 10 3/uL1.2-3.8[facility] CampusLymphocytes/100 WBC Auto (Bld)Ordered By: Yas Linda on 72-88-7587Woruokkuvik/100 WBC (Bld)24.6 %20.5-60.0[facility] HospitalH Auto (RBC) [Entitic mass]Ordered By: Yas Linda on 59-47-5884OEF (RBC) [Entitic mass]32.4 pg25.9-34.0[facility] CampusMCHC Auto (RBC) [Mass/Vol]Ordered By: Yas Linda on 27-59-8135PVVC (RBC) [Mass/Vol]32.9 g/dL29.9-35.2FCleveland [facility] Union HospitalMCV Auto (RBC) [Entitic vol] Ordered By: Yas Linda on 48-63-1544HDH (RBC) [Entitic vol]98.3 fLHigh 80.0-94.0[facility] CampusMonocytes Auto (Bld) [#/Vol]Ordered By: Yas Linda on 30-81-0801Ikgutmdnc (Bld) [#/Vol]0.6 10 3/uL0.3-0.8 [facility] CampusMonocytes/100 WBC Auto (Bld)Ordered By: Yas Linda on 05-20-0497Dhexhkfdg/100 WBC (Bld)8.3 %1.7-12.0[facility] CampusNeutrophils Auto (Bld) [#/Vol]Ordered By: Yas Linda on 65-85-7710Xnhuwctflyv (Bld) [#/Vol]4.2 10 3/uL1.4-6.5FCleveland Clinic Union HospitalNeutrophils/100 WBC Auto (Bld)Ordered By: Yas Linda on 04-00-4353Jzebtmjrnfv/100 WBC (Bld)62.3 %43.0-75.0[facility] CampusNo Panel InformationOrdered By: Yas Linda on 03-65-3594Eyxihosdogp # (Auto)0.3 10 3/uL0.0-0.7FCleveland Clinic Union HospitalImmature Granulocyte # (Auto)0.03 10 3/uL0.00-0.03[facility] CampusPlatelet mean volume Auto (Bld) [Entitic vol]Ordered By: Yas Linda on 98-20-0234Lnzvtwys mean volume (Bld) [Entitic vol]8.9 fLLow9.5-13.5FC[facility] Hospital Platelets Auto (Bld) [#/Vol]Ordered By: Yas Linda on 78-16-0450Kwpupipov (Bld) [#/Vol]174 10 3/oA077-528LiyvttjuySumma Health Akron CampusRBC Auto (Bld) [#/Vol]Ordered By: Yas Linda on 05-05-6883WIK (Bld) [#/Vol]3.49 10 6/uLLow 4.70-6.10[facility] CampusTelephoneon 70-20-5562Phuhyvfge [id number] Delano Oliver 1940 M Date Provider Department Center 07/21/2025 [facility] Family History Problem Relation Age of Onset Diabetes Mother Heart disease Father Glaucoma Brother Diabetes Maternal Grandmother Clotting disorder Other Family Status - Relation Status Age at Mother Father Brother Maternal Grandmother OtherNormalUniversity of Texas [facility] Hospital AzleHbA1c HPLC (Bld) [Mass fraction] Ordered By: Yas Linda on 99-53-3588YbW0f (Bld) [Mass fraction]6.1 %[facility] CampusLaboratory - Chemistry and Chemistry - challengeOrdered By: Yas Linda on 80-19-0791Mkag T4 [Mass/Vol]0.90 ng/dL0.76-1.46[facility] CampusTSH Qn12.678 m[IU]/LHigh0.358-3.740[facility] CampusNo Panel InformationOrdered By: Yas Linda on 01-19-1089Zhkvk Irfigewbrqlopsqc24 ng/vDDgkcdgpn16-190TcxtncgmsSumma Health Akron CampusComment on above:Performed at: [address] [id number] Director: Nathan Munoz PhD, Phone: [phone] Thought I had sent a message to someone. BP's look good, continue current medication regimen. ThanksNormalUniversMercy Memorial Hospital36Pt calling wondering about bps they are in [facility] Telephoneon [id number] Delano Oliver 1940 M Date Provider Department Center 06/26/2025 CALDERON PARKER [facility] Family History Problem Relation Age of Onset Diabetes Mother Heart disease Father Glaucoma Brother Diabetes Maternal Grandmother Clotting disorder Other Family Status - Relation Status Age at Mother Father Brother Maternal Grandmother OtherNormalUniversMercy Memorial HospitalOrders Onlyon 98-58-6930Aguivs [id number] Delano Oliver 1940 M Date Provider Department Center 06/24/2025 [facility] Family History Problem Relation Age of Onset Diabetes Mother Heart disease Father Glaucoma Brother Diabetes Maternal Grandmother Clotting disorder Other Family Status - Relation Status Age at Mother Father Brother Maternal Grandmother OtherNormalUniCincinnati VA Medical Center36on 72-32-073221KwqrcawJOSSIE Webb [place] Please have him increase his isordil and hydralazine to TID. Continue to monitor BP 2 hours after medications. Let us know his readings in 2-3 weeks. Thank you! Previous Messages [employer] Notice: Other - Scan on 06/04/2025 10:32 AM: bp log 06/04/25 Advised of Meera Snell recommendations. verbalized understanding and agreed with plan of careNormalUniverslakehealth beachwood medical center of [facility] AzleOrders Onlyon 68-88-3499Xqkxut [id number] Delano Oliver 1940 M Date Provider Department Center 06/06/2025 ENRRIQUE TAVAREZ D[facility] Family History Problem Relation Age of Onset Diabetes Mother Heart disease Father Glaucoma Brother Diabetes Maternal Grandmother Clotting disorder Other Family Status - Relation Status Age at Mother Father Brother Maternal Grandmother OtherNormalUniversity of Texas Health Harris Methodist Hospital AzleERYTHROPOETIN (EPO), SERUMon 80-49-8330GMWBMRZHJYEXO (EPO), SERUM22 m[iU]/mL2.6 - 18.5 m[iU]/mLNOMS HealthcareComment on above:Lashell SureSpeak UniCel DxI 800 Immunoassay System Values obtained with different assay methods or kits cannot be used interchangeably. Results cannot be interpreted as absolute evidence of the presence or absence of malignant disease. Performed at: [address] [id number] Critical Care Unit Nurse: Nathan Munoz PhD, Phone: [phone] NOMS HealthcareAlbumin [Mass/volume] in Serum or Plasma by Bromocresol green (BCG) dye binding methoOrdered By: Chivo Keller on 29-75-5603Vtxidle BCG dye [Mass/Vol]4.2 g/dL3.5-5.7FCleveland Clinic Union HospitalCARCINOEMBRYONIC ANTIGENon 22-57-8078Ciubolrzyfssrm and review of laboratory resultsAbnormThedaCare Medical Center - [place] IncCBC W Auto Differential panel (Bld)on 05-30-2025 Basophils (Bld) [#/Vol]0 10*3/uL0.0 - 0.2 10*3/uLNOMS HealthcareBasophils/100 WBC Manual cnt (Syn fld)0.4 %.NOMS HealthcareEosinophils (Bld) [#/Vol]0.2 10*3/uL0.0 - 0.45 10*3/uLNOMS HealthcareEosinophils/100 WBC Manual cnt (Syn fld) 2.2 %.NOMS HealthcareErythrocyte distribution width (RBC) [Ratio]14.7 %12.0 - 14.8 %NOMS HealthcareHematocrit (Bld) [Volume fraction]37.5 %Low38.8 - 50.0 % NOMS HealthcareHemoglobin (Bld) [Mass/Vol]12.5 g/dLLow13.0 - 17.0 g/dLGARFIELD MEMORIAL HOSPITAL HealthcareInterpretation and review of laboratory resultsAbMunson Healthcare [facility] Lymphocytes (Bld) [#/Vol]1.4 10*3/uL1.00 - 4.8 10*3/uLNONC Healthcare Lymphocytes/100 WBC Manual cnt (Syn fld)19.9 %.[facility] NorthH (RBC) [Entitic mass]31.7 pg27.5 - 35.2 pgCox NorthHC (RBC) [Mass/Vol]33.2 g/dL32.5 - 35.6 g/dLCox NorthV (RBC) [Entitic vol]95.5 fL83.5 - 101 fLGARFIELD MEMORIAL HOSPITAL HealthcareMonocytes (Bld) [#/Vol]0.7 10*3/uL0.0 - 0.8 10*3/uLNOMS Healthcare Monocytes+Macrophages/100 WBC Manual cnt (Syn fld)9.7 %.[facility] Neutrophils (Bld) [#/Vol]4.9 10*3/uL1.8 - 7.7 10*3/uLNOMS Healthcare Neutrophils/100 WBC Manual cnt (Syn fld)67.8 %.[facility] Memorial HospitalNRBC0 /100{WBC}0 - 0.5 /100{WBC}[facility] HealthcarePlatelet mean volume (Bld) [Entitic vol]7.3 fL6.6 - 10.1 fLGARFIELD MEMORIAL HOSPITAL HealthcarePlatelets (Bld) [#/Vol]205 10*3/uL150 - 450 10*3/uLNOMS [facility] Hospital SouthRBC LM.HPF (Urine sed) [#/Area]3.93 10*6/uL3.90 - 5.60 10*6/uLNOMS HealthcareWBC (Bld) [#/Vol]7.2 10*3/uL4.1 - 10.5 10*3/uLNOMS [facility] Hospital SouthWBC LM.HPF (Urine sed) [#/Area]7.2 [CFU]/mL4.1 - 10.5 [CFU]/mLNOMS [facility] HealthcareComplete Blood Count Auto DiffOrdered By: Chivo Keller on 79-46-3864Btxsalbpt (Bld) [#/Vol]0.0 10*3/uL0.0-0.2FCleveland Clinic Union HospitalComment on above:Result Comment: PERFORMED BY: [address] [place] [address] PATHOLOGIST VICE PRESIDENT OF MARKETING LOGAN RUIZ M.D.Performed By: #### RENAL, CBC #### [facility] [address] [place] [address] USABasophils/100 WBC (Bld)0.4 %.[facility] CampusComment on above:Performed By: #### RENAL, CBC #### [facility] [address] [place] [address] USAEosinophils (Bld) [#/Vol]0.2 10*3/uL0.0-0.45Sum[facility] CampusComment on above:Performed By: #### RENAL, CBC #### [facility] [address] [place] [address] USAEosinophils/100 WBC (Bld)2.2 %.[facility] CampusComment on above:Performed By: #### RENAL, CBC #### [facility] [address] [place] [address] USAErythrocyte distribution width (RBC) [Ratio]14.7 % 12.0-14.8Sum[facility] CampusComment on above:Performed By: #### RENAL, CBC #### [facility] [address] [place] [address] USAHematocrit (Bld) [Volume fraction]37.5 %Low38.8-50.0 [facility] CampusComsparrow ionia hospital on above:Performed By: #### RENAL, CBC #### [facility] [address] [place] [address] USAHemoglobin (Bld) [Mass/Vol]12.5 g/dLLow13.0-17.0Sum[facility] CampusComment on above:Performed By: #### RENAL, CBC #### [facility] [address] [place] [address] USALymphocytes (Bld) [#/Vol]1.4 10*3/uL1.00-4.8Sum[facility] CampusComment on above:Performed By: #### RENAL, CBC #### [facility] [address] [place] [address] USALymphocytes/100 WBC (Bld)19.9 %.[facility] CampusComment on above:Performed By: #### RENAL, CBC #### [facility] [address] [place] [address] [facility] (RBC) [Entitic mass]31.7 pg27.5-35.2FCleveland Clinic Union HospitalComment on above:Performed By: #### RENAL, CBC #### [facility] [address] [place] [address] USAMCV (RBC) [Entitic vol]95.5 fL83.5-101Sum[facility] Health Akron CampusComment on above:Performed By: #### RENAL, CBC #### [facility] [address] [place] [address] USAMonocytes (Bld) [#/Vol]0.7 10*3/uL0.0-0.8Sum[facility] CampusComsparrow ionia hospital on above:Performed By: #### RENAL, CBC #### [facility] [address] [place] [id number] USAMonocytes/100 WBC (Bld)9.7 %.[facility] CampusComment on above:Performed By: #### RENAL, CBC #### [facility] [address] [place] [address] USANeutrophils (Bld) [#/Vol]4.9 10*3/uL1.8-7.7FCleveland Clinic Union HospitalComment on above:Performed By: #### RENAL, CBC #### [facility] [address] [place] [address] USANeutrophils/100 WBC (Bld)67.8 %.[facility] CampusComment on above:Performed By: #### RENAL, CBC #### [facility] [address] [place] [address] USAPlatelet mean volume (Bld) [Entitic vol]7.3 fL6.6-10.1 [facility] CampusComsparrow ionia hospital on above:Performed By: #### RENAL, CBC #### [facility] [address] [place] [address] USAPlatelets (Bld) [#/Vol]205 10*3/bE588-384FdppuqdnhSumma Health Akron CampusComment on above:Performed By: #### RENAL, CBC #### [facility] [address] [place] [address] USARBC (Bld) [#/Vol]3.93 10*6/uL3.90-5.60Sum[facility] CampusComment on above:Performed By: #### RENAL, CBC #### [place] [address] USAWBC (Bld) [#/Vol]7.2 10*3/uL4.1-10.5FCleveland Clinic Union HospitalComment on above:Performed By: #### RENAL, CBC #### [place] [address] USAComplete Blood Count Auto Diffon 20-80-0817Tvwt Corpuscular HGB Conc33.2 g/pOTgbava09.5-35.6The [facility] Health Physician GroupComment on above:Performed By: #### RENAL, CBC #### [place] [address] USANRBC%0.0 /100{WBC}Normal0-0.5[facility] Comment on above:Performed By: #### RENAL, CBC #### [place] [address] USAWhite Blood Count7.2 [CFU]/mLNormal4.1-10.5The [facility] Health Physician GroupComment on above:Performed By: #### RENAL, CBC #### [place] [address] USAComprehensive Metabolic Panelon 14-10-7906Deevfbq [Mass/Vol]4.2 g/dLNormal3.5-5.7The [facility] Health Physician GroupComment on above: Performed By: #### RENAL, CBC #### [place] [address] USACreatinine Clr Calc Dpwwvggw47.38NormalThe Randolph Health Physician GroupComment on above:Performed By: #### RENAL, CBC #### [facility] [address] [place] [address] USAGFR/1.73 sq M.predicted MDRD (S/P/Bld) [Vol rate/Area] 28.071 mL/min/{1.73_m2}NormalThe Randolph Health Physician GroupComment on above: Performed By: #### RENAL, CBC #### [facility] [address] [place] [id number] USAComprehensive Metabolic PanelOrdered By: Chivo Keller on 66-98-6690Sgrhivq/Globulin [Mass ratio]1.8 {ratio}[facility] CampusComment on above:Performed By: #### RENAL, CBC #### [facility] [address] [place] [address] USAALP [Catalytic activity/Vol]124 U/VWazr99-381PxemomtcmSumma Health Akron CampusComment on above:Performed By: #### RENAL, CBC #### [facility] [address] [place] [id number] USAALT [Catalytic activity/Vol]15 U/L7-52Sum[facility] Health Akron CampusComment on above:Performed By: #### RENAL, CBC #### [facility] [address] [place] [address] USAAnion gap [Moles/Vol]10.2 mmol/L6.0-15.0Sum[facility] CampusComment on above:Performed By: #### RENAL, CBC #### [facility] [address] [place] [id number] USAAST [Catalytic activity/Vol]17 U/B77-76KanjesenjSumma Health Akron CampusComment on above:Performed By: #### RENAL, CBC #### [facility] [address] [place] [id number] USABilirubin [Mass/Vol]0.6 mg/dL0.3-1.0[facility] CampusComment on above:Performed By: #### RENAL, CBC #### [facility] [address] [place] [address] USACalcium [Mass/Vol]8.6 mg/dL8.6-10.3FCleveland Clinic Union HospitalComment on above:Performed By: #### RENAL, CBC #### [facility] [address] [place] [address] USAChloride [Moles/Vol]101 mmol/D47-750RmujkwvieSumma Health Akron CampusComment on above:Performed By: #### RENAL, CBC #### [facility] [address] [place] [address] USACO2 [Moles/Vol]34.0 mmol/LHigh21.0-31.0[facility] CampusComment on above:Performed By: #### RENAL, CBC #### [facility] [address] [place] [address] USACreatinine [Mass/Vol]2.26 mg/dLHigh0.70-1.30Sum[facility] CampusComment on above:Performed By: #### RENAL, CBC #### [facility] [address] [place] [address] USAGlobulin (S) [Mass/Vol]2.3 g/dLSumma Health Akron CampusComment on above:Performed By: #### RENAL, CBC #### [facility] [address] [place] [address] USAGlucose [Mass/Vol]106 mg/yRGmcc18-524WzibswsyaSumma Health Akron CampusComment on above:Result Comment: Random Glucose Reference Range is dependent on time and content of last meal. Glucose of more than 200 mg/dL in a nonstressed, ambulatory subject supports the diagnosis of Diabetes Mellitus. ADA recommended reference rangePerformed By: #### RENAL, CBC #### [facility] [address] [place] [address] USAADA recommended reference rangeRandom Glucose Reference Range is dependent on time and content of last meal. Glucose of more than 200 mg/dL in a nonstressed, ambulatory subject supports the diagnosisof Diabetes Mellitus.Potassium [Moles/Vol]4.2 mmol/L3.5-5.1FC[facility] Comment on above:Performed By: #### RENAL, CBC #### [facility] [address] [place] [address] USAProtein [Mass/Vol]6.5 g/dL6.4-8.9Sum[facility] CampusComment on above:Performed By: #### RENAL, CBC #### [facility] [address] [place] [address] USASodium [Moles/Vol]141 mmol/G170-302GsffirgpsSumma Health Akron CampusComment on above:Performed By: #### RENAL, CBC #### [facility] [address] [place] [address] USAUrea nitrogen [Mass/Vol]44 mg/dLHigh7-25Sum[facility] CampusComment on above:Performed By: #### RENAL, CBC #### [facility] [address] [place] [address] USAErythropoetin (EPO), Serumon 25-53-5741Dxzvkeopjqqtl (EPO), Serum22.0 m[iU]/mLNormal2.6-18.5The [facility] Health Physician GroupComment on above:Result Comment: JP3 Measurement DxI 800 Immunoassay System Values obtained with different assay methods or kits cannot be used interchangeably. Results cannot be interpreted as absolute evidence of the presence or absence of malignant disease. Performed at: - [place] [id number] Critical Care Unit Nurse: Nathan Munoz PhD, Phone: [phone] PERFORMED BY: [place] [address] PATHOLOGIST VICE PRESIDENT OF MARKETING LOGAN RUIZ M.D.Performed By: #### FE and TIBC, CMP, TONY, CBC, CEA, [id number] ####[facility] [id number]#### EPO ####[facility] ,FerritinOrdered By: Chivo Keller on 84-22-1926Hdgnrojm [Mass/Vol]236.2 ng/mL23.9-336.2FCleveland Clinic Union HospitalComment on above:Performed By: #### RENAL, CBC #### [facility] [address] [place] [address] USAFolate [Mass/volume] in Serum or PlasmaOrdered By: Chivo Keller on 41-19-2468Oastsn [Mass/Vol]ng/mL>5.9[facility] CampusComment on above:Folate reference range: >5.9 ng/mlThe WHO technical consultation on folate and vitamin t65aljnydiycgfl has determined that folate concentrations lessthan 4 ng/ml are considered deficient.Iron and TIBC Profileon 05-30-2025% Iron Oujiexgpvn14.1 %Fpqcpv44-99Rwh [facility] Comment on above:Performed By: #### RENAL, CBC #### [facility] [address] [place] [address] USATotal Iron Binding Qlmgjpxv217 ug/gLMjfrzl101-933Jww [facility] Physician GroupComment on above:Performed By: #### RENAL, CBC #### [facility] [address] [place] [address] USAIron and TIBC ProfileOrdered By: Chivo Keller on 18-88-7701Hgqu [Mass/Vol]76 ug/fV76-154BtauxwuijSumma Health Akron CampusComment on above:Performed By: #### RENAL, CBC #### [facility] [address] [place] [id number] USATransferrin [Mass/Vol]193 mg/uVVay890-257NxbrcdfyaSumma Health Akron CampusComment on above:Performed By: #### RENAL, CBC #### [facility] [address] [place] [address] USALeukocytes [#/volume] corrected for nucleated erythrocytes in Blood by Automated counOrdered By: Chivo Keller on 29-70-5068ICN corrected for nucl RBC Auto (Bld) [#/Vol]7.2 10*3/uL4.1-10.5FCleveland Clinic Union HospitalMCHC Auto (RBC) [Mass/Vol]Ordered By: Chivo Keller on 07-10-9872LBJW (RBC) [Mass/Vol]33.2 g/dL32.5-35.6FCleveland Clinic Union HospitalNo Panel InformationOrdered By: Chivo Keller on 03-55-0916Vlwqsbxba GFR (CKD-EPI)28.071 mL/MinSumma Health Akron CampusPharmacy Creatinine Clearance (Chem26.38Sum[facility] Health [facility] CampusNucleated erythrocytes [Presence] in Blood by Automated countOrdered By: Chivo Keller on 14-02-8898Jnrtskhvx RBC Auto Ql (Bld)0.0 /100{WBC}0-0.5FCoshocton Regional Medical Centererum or plasma erythropoietin (EPO) measurement (units/volume) Ordered By: Chivo Keller on 89-49-8374Qwysmipekmzwnk (EPO) Qn22.0 mIU/mL High2.6-18.5FCleveland Clinic Union HospitalComment on above:Lashell Solution Dynamics Groupel DxI 800 Immunoassay SystemValues obtained with different assay methods or kits cannotbe used interchangeably. Results cannot be interpreted asabsolute evidence of the presence or absence of malignantdisease.Performed at: [facility] [place] [id number] Director: Nathan Munoz PhD, Phone: [phone] or plasma iron binding capacity measurement (mass/volume)Ordered By: Chivo Keller on 77-98-3603Ivkp binding capacity [Mass/Vol]270 ug/fL234-887QbzgoqbfgSelect Medical Specialty Hospital - Cincinnati Northerum or plasma iron saturation measurement (mass fraction)Ordered By: Chivo Keller on 49-65-9982Rfeq saturation [Mass fraction]28.1 %20-50Sum[facility] Health Akron CampusVit. B12/Folate ProfileOrdered By: Chivo Keller on 05-30-2025 Cobalamin (Vitamin B12) [Mass/Vol]433 pg/fY680-634KxorlxroaSumma Health Akron CampusComment on above:Performed By: #### FE and TIBC, CMP, TONY, CBC, CEA, [id number] ####[facility]#### EPO ####[facility] ,Vit. B12/Folate Profileon 15-60-2849Ktmerj >49.6Normal>5.9The [facility] Health Physician GroupComment on above:Result Comment: Folate reference range: >5.9 ng/ml The WHO technical consultation on folate and vitamin b12 deficiencies has determined that folate concentrations less than 4 ng/ml are considered deficient. PERFORMED BY: [facility] [address] [place] [address] PATHOLOGIST VICE PRESIDENT OF MARKETING LOGAN RUIZ M.D.Performed By: #### FE and TIBC, CMP, TONY, CBC, CEA, [id number] ####[facility] J[address]#### EPO ####[facility] ,Office Visiton 95-54-0690Mwbspz-up visit [id number] Delano Oliver 1940 M Date Provider Department Center 05/27/2025 TRANG LOPEZ [facility] Family History Problem Relation Age of Onset Diabetes Mother Heart disease Father Glaucoma Brother Diabetes Maternal Grandmother Clotting disorder Other Family Status - Relation Status Age at Mother Father Brother Maternal Grandmother Other Level of Service:05532 HI OFFICE/OUTPATIENT ESTABLISHED LOW [facility] HospitalOrders Onlyon 60-65-6005Okpbvn [id number] Delano Oliver 1940 M Date Provider Department Center 05/22/2025 [facility] Family History Problem Relation Age of Onset Diabetes Mother Heart disease Father Glaucoma Brother Diabetes Maternal Grandmother Clotting disorder Other Family Status - Relation Status Age at Mother Father Brother Maternal Grandmother OtherNormalUniversity of Texas Health Harris Methodist Hospital AzleOrders [id number] Delano Oliver 1940 M Date Provider Department Center 05/22/2025 TIEN RANGEL [facility] Family History Problem Relation Age of Onset Diabetes Mother Heart disease Father Glaucoma Brother Diabetes Maternal Grandmother Clotting disorder Other Family Status - Relation Status Age at Mother Father Brother Maternal Grandmother OtherNormalUniversMercy Memorial HospitalDocumentationon 04-25-2025 [id number] Delano Oliver 1940 M Date Provider Department Center 04/25/2025 FERMIN CANCHOLA [facility] Family History Problem Relation Age of Onset Diabetes Mother Heart disease Father Glaucoma Brother Diabetes Maternal Grandmother Clotting disorder Other Family Status - Relation Status Age at Mother Father Brother Maternal Grandmother Other Reason for Visit and Comments: Congestive Heart Failure [127]NormalJoint Township District Memorial HospitalOffice Visiton 19-07-8757Fpicmw-up [id number] Delano Oliver 1940 M Date Provider Department Center 04/14/2025 ADAN YOUSIF [facility] Family History Problem Relation Age of Onset Diabetes Mother Heart disease Father Glaucoma Brother Diabetes Maternal Grandmother Clotting disorder Other Family Status - Relation Status Age at Mother Father Brother Maternal Grandmother Other Level of Service:81399 HI OFFICE/OUTPATIENT ESTABLISHED MOD MDM 30 [facility] HospitalErythrocyte distribution width Auto (RBC) [Ratio]Ordered By: Zahida Flowers on 60-02-1731Zpkpxdjcihg distribution width (RBC) [Ratio]14.0 %11.0-15.0Sum[facility] Akron CampusEstimated glomerular filtration rate (GFR) non- AmericanOrdered By: Zahida Flowers on 04-08-2025 GFR/1.73 sq M.predicted among non-blacks MDRD (S/P/Bld) [Vol rate/Area]29 mL/min/{1.73_m2}Low>=60 mL/min/1.73m 2FCleveland Clinic Union Hospital Hematocrit Auto (Bld) [Volume fraction]Ordered By: Zahida Flowers on 04-08-2025 Hematocrit (Bld) [Volume fraction]39.2 %Low42.0-54.0[facility] CampusHemoglobin [Mass/volume] in BloodOrdered By: Zahida Hallr on 04-08-2025 Hemoglobin (Bld) [Mass/Vol]12.9 g/dLLow14.0-18.0[facility] CampusIron binding capacity [Mass/volume] in Serum or PlasmaOrdered By: Zahida Lionel on 52-81-5446Tepg binding capacity [Mass/Vol]236.0 ug/cLRdw600.0-450.0 [facility] CampusIron saturation [Mass Fraction] in Serum or PlasmaOrdered By: Zahida Lionel on 32-96-5596Pthl saturation [Mass fraction]26.7 % [facility] CampusLaboratory - Chemistry and Chemistry - challengeOrdered By: Zahida Flowers on 55-41-1146Zcqcuil [Mass/Vol]3.6 g/dL3.4-5.0 [facility] CampusCalcium [Mass/Vol]9.4 mg/dL8.5-10.1FCleveland Clinic Union HospitalChloride [Moles/Vol]102 mmol/L18-864MysgvoufxSumma Health Akron CampusCO2 [Moles/Vol]34.4 mmol/LHigh21.0-32.0[facility] CampusCreatinine [Mass/Vol]2.17 mg/dLHigh0.70-1.30[facility] CampusFerritin [Mass/Vol]432.0 ng/jTPtbm07.0-388.0[facility] CampusGFR/1.73 sq M.predicted MDRD (S/P/Bld) [Vol rate/Area]36 mL/min/{1.73_m2} Low>=60 mL/min/1.73m 2FCleveland Clinic Union HospitalGlucose [Mass/Vol]97 mg/qI72-382TpplplefxSumma Health Akron CampusIron [Mass/Vol]63.0 ug/dLLow 65.0-175.0[facility] CampusMagnesium [Mass/Vol]2.4 mg/dL1.8-2.4 [facility] CampusPotassium [Moles/Vol]4.2 mmol/L3.5-5.1FCoshocton Regional Medical Centerodium [Moles/Vol]142 mmol/T146-180UgvmjvjepSumma Health Akron CampusUrate [Mass/Vol]7.7 mg/dLHigh3.5-7.2FCleveland Clinic Union HospitalUrea nitrogen [Mass/Vol]46.0 mg/dLHigh7.0-18.0[facility] CampusUrea nitrogen/Creatinine [Mass ratio]21.2 mg/mgSumma Health Akron CampusLaboratory - Chemistry and Chemistry - challengeOrdered By: Yas Linda on 45-05-5303Zoul T4 [Mass/Vol]1.00 ng/dL0.76-1.46Sum[facility] CampusTSH Qn12.655 m[IU]/LHigh0.358-3.740[facility] Laboratory - UrinalysisOrdered By: Zahida Flowers on 31-85-8248Gwqqgzk (U) [Mass/Vol]24.0 mg/dLHigh<=11.9Sum[facility] CampusLeukocytes [#/volume] corrected for nucleated erythrocytes in Blood by Automated coun Ordered By: Zahida Flowers on 59-06-0092OBA corrected for nucl RBC Auto (Bld) [#/Vol]7.2 10 3/uL4.0-11.0[facility] Auto (RBC) [Entitic mass]Ordered By: Zahida Flowers on 19-77-3352AIN (RBC) [Entitic mass]31.5 pg25.9-34.0[facility] HospitalHC Auto (RBC) [Mass/Vol]Ordered By: Zahida Flowers on 57-73-5142ZGNC (RBC) [Mass/Vol]32.9 g/dL29.9-35.2FMedina HospitalV Auto (RBC) [Entitic vol]Ordered By: Zahida Flowers on 72-29-0713GIT (RBC) [Entitic vol]95.8 xWMgcv42.0-94.0[facility] CampusNo Panel InformationOrdered By: Zahida Flowers on 662693-Qjawqwd Vitamin D Total89.1 ng/mLSumma Health Akron CampusComment on above:<20 ng/mL Vit D fsuacafzr14-<30 ng/mL Vit D yvuvmfvxpyfu35-565 ng/mL Vit D sufficient>100 ng/mL Potential ToxicityParathyroid Hormone (Intact)59 pg/mL15-65 [facility] CampusComment on above:Performed at: [employer] [facility] [address] [id number] Director: Nathan Munoz PhD, Phone: [phone] Level3.6 mg/dL2.6-4.7FCleveland Clinic Union HospitalUrine Random Creatinine<13.00 mg/dLLow20.00-300.00[facility] CampusNo Panel InformationOrdered By: Yas Linda on 08-05-2856Syivi Itwmvscjdnrfebfw78 ng/fVCdfzosyx74-962FjtxoqepwSumma Health Akron CampusComment on above:Performed at: - [facility] [address] [id number] Director: Nathan Munoz PhD, Phone: [phone] mean volume Auto (Bld) [Entitic vol]Ordered By: Zahida Flowers on 97-90-4464Zvutqvrd mean volume (Bld) [Entitic vol]8.4 fLLow9.5-13.5FCleveland Clinic Union HospitalPlatelets Auto (Bld) [#/Vol]Ordered By: Zahida Flowers on 91-33-6979Tmzpmfmmp (Bld) [#/Vol]196 10 3/rI015-603SaymslgftSumma Health Akron CampusRBC Auto (Bld) [#/Vol]Ordered By: Zahida Flowers on 22-82-9308NJD (Bld) [#/Vol]4.09 10 6/uLLow 4.70-6.10[facility] Northerum or plasma anion gap determinationOrdered By: Zahida Flowers on 31-84-5617Rondl gap [Moles/Vol]9.8 mmol/LFCleveland Clinic Union Hospital36on 15-59-722904Nn he is feeling okay (no dizziness/LH), would like him to increase his hydralazine to 25mg BID. He can use up his 10mg tablets by taking 2 tablets (equally 20mg) until this is out then start the hydralazine 25mg BID. Thanks! NormalJoint Township District Memorial HospitalOrders Onlyon 98-67-0954Daowuf Only [id number] Delano Oliver 1940 M Date Provider Department Center 03/06/2025 ENRRIQUE TAVAREZ [facility] Family History Problem Relation Age of Onset Diabetes Mother Heart disease Father Glaucoma Brother Diabetes Maternal Grandmother Clotting disorder Other Family Status - Relation Status Age at Mother Father Brother Maternal Grandmother OtherNormalUniversity of Texas Health Harris Methodist Hospital AzleBasophils Auto (Bld) [#/Vol] Ordered By: Chivo Keller on 15-25-3801Gyovuwhii (Bld) [#/Vol]Automated basophil count0.0-0.2FCleveland Clinic Union HospitalBasophils [#/volume] in Blood by Automated countOrdered By: Chivo Keller on 47-54-3667Ddyqdjmpu (Bld) [#/Vol]0.0 10*3/uLNormal0.0-0.2FCleveland Clinic Union HospitalComment on above:Result Comment: PERFORMED BY: [place] [address] PATHOLOGIST VICE PRESIDENT OF MARKETING KRISTEL LU M.D.Performed By: #### RENAL, CBC #### [facility] [address] [place] [address] USABasophils/100 WBC Auto (Bld)Ordered By: Chivo Keller on 18-09-0082Osqxtxqce/100 WBC (Bld)Automated basophil %.[facility] CampusBasophils/100 leukocytes in Blood by Automated countOrdered By: Chivo Keller on 35-21-2543Mycoobifi/100 WBC (Bld)0.2 %Normal.Sum[facility] Akron CampusComment on above:Performed By: #### RENAL, CBC #### [facility] [address] [place] [address] USACBC W Auto Differential panel (Bld)on 26-61-1899Fozroclmq (Bld) [#/Vol]0 10*3/uL0.0 - 0.2 10*3/uLNOMS HealthcareBasophils/100 WBC Manual cnt (Syn fld)0.2 %.NOMS HealthcareEosinophils (Bld) [#/Vol]0.1 10*3/uL0.0 - 0.45 10*3/uLNOMS HealthcareEosinophils/100 WBC Manual cnt (Syn fld)0.9 %.[facility] HealthcareErythrocyte distribution width (RBC) [Ratio]15.5 %High12.0 - 14.8 % NOMS HealthcareHematocrit (Bld) [Volume fraction]33.5 %Low38.8 - 50.0 %NOMS HealthcareHemoglobin (Bld) [Mass/Vol]11.2 g/dLLow13.0 - 17.0 g/dLPerry County Memorial Hospital Interpretation and review of laboratory resultsAbnormalPerry County Memorial Hospital Lymphocytes (Bld) [#/Vol]1.1 10*3/uL1.00 - 4.8 10*3/uLNONC Healthcare Lymphocytes/100 WBC Manual cnt (Syn fld)15.1 %.[facility] NorthH (RBC) [Entitic mass]31.6 pg27.5 - 35.2 pgCox NorthHC (RBC) [Mass/Vol]33.5 g/dL32.5 - 35.6 g/dLCox NorthV (RBC) [Entitic vol]94.3 fL83.5 - 101 fLPerry County Memorial HospitalMonocytes (Bld) [#/Vol]0.5 10*3/uL0.0 - 0.8 10*3/uLGARFIELD MEMORIAL HOSPITAL Healthcare Monocytes+Macrophages/100 WBC Manual cnt (Syn fld)6.9 %.[facility] Neutrophils (Bld) [#/Vol]5.4 10*3/uL1.8 - 7.7 10*3/uLNONC Healthcare Neutrophils/100 WBC Manual cnt (Syn fld)76.9 %.[facility] HospitalNRBC0 /100{WBC}0 - 0.5 /100{WBC}[facility] HospitalPlatelet mean volume (Bld) [Entitic vol]7.2 fL6.6 - 10.1 fLPerry County Memorial HospitalPlatelets (Bld) [#/Vol]232 10*3/uL150 - 450 10*3/uLNOEllett Memorial HospitalRBC LM.HPF (Urine sed) [#/Area]3.55 10*6/uLLow3.90 - 5.60 10*6/uLNOMS [facility] SouthWBC (Bld) [#/Vol]7 10*3/uL4.1 - 10.5 10*3/uLNOEllett Memorial HospitalWBC LM.HPF (Urine sed) [#/Area]7 10*3/uL4.1 - 10.5 10*3/uLNOSaint John's Saint Francis Hospital Healthcare Complete Blood Count Auto Diffon 23-54-4022Nout Corpuscular HGB Conc33.5 g/dL Nimcfb77.5-35.6The [facility] Health Physician GroupComment on above:Performed By: #### RENAL, CBC #### [facility] [address] [place] [address] USANRBC%0.0 /100{WBC}Normal0-0.5[facility] Comment on above:Performed By: #### RENAL, CBC #### [place] [address] USAEosinophils Auto (Bld) [#/Vol]Ordered By: Chivo Keller on 44-84-6866Jrzxxypnpyc (Bld) [#/Vol]Automated eosinophil count 0.0-0.45Sum[facility]ron CampusEosinophils [#/volume] in Blood by Automated countOrdered By: Chivo Keller on 76-98-6068Czxyidrrkah (Bld) [#/Vol]0.1 10*3/uLNormal0.0-0.45Sum[facility] CampusComment on above:Performed By: #### RENAL, CBC #### [place] [address] USAEosinophils/100 WBC Auto (Bld)Ordered By: Chivo Keller on 42-16-4969Cxglvqqbdnj/100 WBC (Bld)Automated eosinophil %.[facility] CampusEosinophils/100 leukocytes in Blood by Automated count Ordered By: Chivo Keller on 80-15-7503Vvrjqbgxlqy/100 WBC (Bld)0.9 %Normal. [facility] CampusComment on above:Performed By: #### RENAL, CBC #### [place] [address] USAErythrocyte distribution width Auto (RBC) [Ratio]Ordered By: Chivo Keller on 95-74-1414Najsxlmimqz distribution width (RBC) [Ratio] Erythrocyte distribution width [Ratio] by Automated xxiwhMxcs29.0-14.8[facility] CampusErythrocyte distribution width [Ratio] by Automated count Ordered By: Chivo Keller on 27-24-2639Rhuzkznfjzn distribution width (RBC) [Ratio]15.5 %High12.0-14.8[facility] CampusComment on above: Performed By: #### RENAL, CBC #### [place] [address] USAErythrocytes [#/volume] in Blood by Automated countOrdered By: Chivo Keller on 71-52-5665UAX (Bld) [#/Vol]3.55 10*6/uLLow3.90-5.60 [facility] CampusComment on above:Performed By: #### RENAL, CBC #### [facility] [address] [place] [address] USAHematocrit Auto (Bld) [Volume fraction]Ordered By: Chivo Keller on 59-65-2061Xmpooigubz (Bld) [Volume fraction]Hematocrit [Volume Fraction] of Blood by Automated cxpcqRvv58.8-50.0[facility] CampusHematocrit [Volume Fraction] of Blood by Automated countOrdered By: Chivo Keller on 49-32-1657Ljlqtczbnx (Bld) [Volume fraction]33.5 %Low 38.8-50.0[facility] CampusComment on above:Performed By: #### RENAL, CBC #### [facility] [address] [place] [id number] USAHemoglobin [Mass/volume] in BloodOrdered By: Chivo Keller on 48-75-2386Wkmmrbljwu (Bld) [Mass/Vol]Hemoglobin [Mass/volume] in VtysrMyt60.0-17.0[facility] CampusHemoglobin (Bld) [Mass/Vol] 11.2 g/dLLow13.0-17.0[facility] CampusComment on above:Performed By: #### RENAL, CBC #### [facility] [address] [place] [id number] USALeukocytes [#/volume] corrected for nucleated erythrocytes in Blood by Automated counOrdered By: Chivo Keller on 78-53-3848KFT corrected for nucl RBC Auto (Bld) [#/Vol]Leukocytes [#/volume] corrected for nucleated erythrocytes in Blood by Automated coun4.1-10.5FCleveland Clinic Union HospitalWBC corrected for nucl RBC Auto (Bld) [#/Vol]7.0 10*3/uL4.1-10.5 [facility] CampusLeukocytes [#/volume] in Blood by Automated countOrdered By: Chivo Keller on 26-94-0611CVF (Bld) [#/Vol]7.0 10*3/uL Normal4.1-10.5FCleveland Clinic Union HospitalComment on above:Performed By: #### RENAL, CBC #### [facility] [address] [place] [address] USALymphocytes Auto (Bld) [#/Vol]Ordered By: Chiov Keller on 18-60-9547Xjslzhwhlgj (Bld) [#/Vol]Lymphocytes [#/volume] in Blood by Automated count1.00-4.8Sum[facility]ron CampusLymphocytes [#/volume] in Blood by Automated countOrdered By: Chivo Keller on 41-65-7543Dpszqrmsqqk (Bld) [#/Vol]1.1 10*3/uLNormal1.00-4.8[facility] CampusComment on above:Performed By: #### RENAL, CBC #### [place] [id number] USALymphocytes/100 WBC Auto (Bld)Ordered By: Chivo Keller on 78-61-4309Vsekhitkgcm/100 WBC (Bld)Lymphocytes/100 leukocytes in Blood by Automated count.[facility] CampusLymphocytes/100 leukocytes in Blood by Automated countOrdered By: Chivo Keller on 65-99-8910Kihgmhvqsil/100 WBC (Bld)15.1 %Normal.[facility] CampusComment on above:Performed By: #### RENAL, CBC #### [facility] [address] [place], [place] [address] [facility] Auto (RBC) [Entitic mass]Ordered By: Chivo Keller on 72-43-6351NLI (RBC) [Entitic mass]MCH [Entitic mass] by Automated count 27.5-35.2FSelect Medical Specialty Hospital - Southeast Ohio [Entitic mass] by Automated count Ordered By: Chivo Keller on 89-34-9655CBH (RBC) [Entitic mass]31.6 pgNormal 27.5-35.2FCleveland Clinic Union HospitalComment on above:Performed By: #### RENAL, CBC #### [facility] [address] [place] [id number] USAHC Auto (RBC) [Mass/Vol]Ordered By: Chivo Keller on 49-68-0028FUQO (RBC) [Mass/Vol]MCHC [Mass/volume] by Automated count32.5-35.6 [facility] HospitalHC (RBC) [Mass/Vol]33.5 g/dL32.5-35.6 [facility] HospitalV Auto (RBC) [Entitic vol]Ordered By: Chivo Keller on 30-36-2912JKT (RBC) [Entitic vol]MCV [Entitic volume] by Automated count83.5-101Av[facility] Bucy[facility] HospitalV [Entitic volume] by Automated countOrdered By: Chivo Keller on 14-64-0241FAJ (RBC) [Entitic vol]94.3 fL Cqtzmb05.5-101Sum[facility]ron CampusComment on above:Performed By: #### RENAL, CBC #### [facility] [address] [place] [address] USAMonocytes Auto (Bld) [#/Vol]Ordered By: Chivo Keller on 20-82-0915Vgzaefmqh (Bld) [#/Vol]Automated blood monocyte count0.0-0.8 [facility] CampusMonocytes [#/volume] in Blood by Automated countOrdered By: Chivo Keller on 24-37-9240Jklpypwtx (Bld) [#/Vol]0.5 10*3/uLNormal0.0-0.8[facility] CampusComment on above:Performed By: #### RENAL, CBC #### [facility] [address] [place] [address] USAMonocytes/100 WBC Auto (Bld)Ordered By: Chivo Keller on 92-78-5604Eogiupetu/100 WBC (Bld)Automated monocyte %.[facility] CampusMonocytes/100 leukocytes in Blood by Automated countOrdered By: Chivo Keller on 21-10-6145Hpilosxpz/100 WBC (Bld)6.9 %Normal.[facility] CampusComment on above:Performed By: #### RENAL, CBC #### [facility] [address] [place] [address] USANeutrophils Auto (Bld) [#/Vol]Ordered By: Chivo Keller on 42-42-0817Ndndowktjfj (Bld) [#/Vol]Neutrophils [#/volume] in Blood by Automated count1.8-7.7FCleveland Clinic Union HospitalNeutrophils [#/volume] in Blood by Automated countOrdered By: Chivo Keller on 02-28-2025 Neutrophils (Bld) [#/Vol]5.4 10*3/uLNormal1.8-7.7FCleveland Clinic Union HospitalComment on above:Performed By: #### RENAL, CBC #### [facility] [address] [place] [id number] USANeutrophils/100 WBC Auto (Bld)Ordered By: Chivo Keller on 21-49-3366Ziuuentzpmv/100 WBC (Bld)Automated neutrophil %.[facility] CampusNeutrophils/100 leukocytes in Blood by Automated count Ordered By: Chivo Keller on 21-00-1788Csppvcpabpd/100 WBC (Bld)76.9 %Normal .[facility] Ak[facility] CampusComment on above:Performed By: #### RENAL, CBC #### [facility] [address] [place] [id number] USANucleated erythrocytes [Presence] in Blood by Automated countOrdered By: Chivo Keller on 18-90-3162Hczlmtcir RBC Auto Ql (Bld) Nucleated erythrocytes [Presence] in Blood by Automated count0-0.5FCleveland Clinic Union HospitalNucleated RBC Auto Ql (Bld)0.0 /100{WBC}0-0.5FCleveland Clinic Union HospitalPlatelet mean volume Auto (Bld) [Entitic vol]Ordered By: Chivo Keller on 38-91-6200Iivgatwa mean volume (Bld) [Entitic vol]Platelet mean volume [Entitic volume] in Blood by Automated count6.6-10.1FCleveland Clinic Union HospitalPlatelet mean volume [Entitic volume] in Blood by Automated countOrdered By: Chivo Keller on 46-64-6823Tbjxkyhj mean volume (Bld) [Entitic vol]7.2 fLNormal6.6-10.1FCleveland Clinic Union HospitalComment on above:Performed By: #### RENAL, CBC #### [facility] [address] [place] [address] USAPlatelets Auto (Bld) [#/Vol]Ordered By: Chivo Keller on 02-48-0855Ethdiyqqt (Bld) [#/Vol]Platelets [#/volume] in Blood by Automated hnemd565-094TgqbvvqlkSumma Health Akron CampusPlatelets [#/volume] in Blood by Automated countOrdered By: Chivo Keller on 49-35-1392Rtytjytii (Bld) [#/Vol]232 10*3/uWQxjkjw664-053QogwahmcmSumma Health Akron CampusComment on above:Performed By: #### RENAL, CBC #### [facility] [address] [place] [address] USARBC Auto (Bld) [#/Vol]Ordered By: Chivo Keller on 05-78-1027UAZ (Bld) [#/Vol]Erythrocytes [#/volume] in Blood by Automated count Low3.90-5.60Sum[facility] CampusWBC Auto (Bld) [#/Vol]Ordered By: Chivo Keller on 30-86-8473IWD (Bld) [#/Vol]Leukocytes [#/volume] in Blood by Automated count4.1-10.5FCleveland Clinic Union HospitalERYTHROPOETIN (EPO), SERUMon 58-53-3233BOYZRKHGBFYSF (EPO), SERUM30.4 m[iU]/mLHigh2.6 - 18.5 m[iU]/mL [facility] HospitalComment on above:Dormzyel DxI 800 Immunoassay System Values obtained with different assay methods or kits cannot be used interchangeably. Results cannot be interpreted as absolute evidence of the presence or absence of malignant disease. Performed at: [address] [id number] Critical Care Unit Nurse: Nathan Munoz PhD, Phone: [phone] Interpretation and review of laboratory resultsAbNovant Health Thomasville Medical CenterX-ray reportOrdered By: Sotero Scott on 14-96-8429Npxts report [facility] CampusXR hip BI w GSX3Uka 53-80-2967PG hip BI w PEL1V [facility] [address] [place] [address] XRay Report Signed Patient: Delano Oliver MR#: [id number] [birth year] : 1940 Acct:[id number] Age/Sex: 84 / M ADM Date: 02/25/25 Loc: [facility] Room: Type: [facility] Attending Dr: Walker Soria MD Copies to: [...] Jr., D.O. 02/25/2025 2:31 PM Dictation Location: [place] [address] Transcribed By: [facility] 02/25/25 1431 Dictated By: Sotero Scott Jr, DO 02/25/25 1430 Signed By: 02/25/25 1431[facility] Physician GroupAlanine aminotransferase [Enzymatic activity/volume] in Serum or PlasmaOrdered By: Chivo Keller on 06-62-8329WNT [Catalytic activity/Vol]Alanine aminotransferase [Enzymatic activity/volume] in Serum or PlasmaSumma Health Akron CampusALT [Catalytic activity/Vol]10 U/LNormalSumma Health Akron CampusComment on above:Order Comment: STAT FOR CTPerformed By: #### FE and TIBC, TONY, CMP, [id number] ####[facility] [address] [place] [address] USAAlbumin [Mass/volume] in Serum or Plasma by Bromocresol green (BCG) dye binding methoOrdered By: Chivo Keller on 86-49-0057Wskpiik BCG dye [Mass/Vol]Albumin [Mass/volume] in Serum or Plasma by Bromocresol green (BCG) dye binding metho3.5-5.7FCleveland Clinic Union HospitalAlbumin BCG dye [Mass/Vol]4.1 g/dL3.5-5.7FCleveland Clinic Union HospitalAlkaline phosphatase [Enzymatic activity/volume] in Serum or PlasmaOrdered By: Chivo Keller on 00-53-2086KJZ [Catalytic activity/Vol]Alkaline phosphatase [Enzymatic activity/volume] in Serum or YzlmyhQmqk31-424Lom[address] ALP [Catalytic activity/Vol]125 U/HYfft25-930Mguctng[address] Comment on above:Order Comment: STAT FOR CTPerformed By: #### FE and TIBC, TONY, CMP, [id number] ####[facility] [address] [place] [address] USAAspartate aminotransferase [Enzymatic activity/volume] in Serum or PlasmaOrdered By: Chivo Keller on 04-85-6394IIM [Catalytic activity/Vol] Aspartate aminotransferase [Enzymatic activity/volume] in Serum or Mhmulx85-04 [facility] CampusAST [Catalytic activity/Vol]17 U/KBlpflk54-05 [facility] CampusComment on above:Order Comment: STAT FOR CT Performed By: #### FE and TIBC, TONY, CMP, [id number] ####[facility] [address] [place] [address] USABilirubin.total [Mass/volume] in Serum or PlasmaOrdered By: Chivo Keller on 49-82-9867Nyqcybgmf [Mass/Vol]Bilirubin.total [Mass/volume] in Serum or Plasma0.3-1.0[facility] CampusBilirubin [Mass/Vol]0.5 mg/dLNormal0.3-1.0[facility] Ak[facility] CampusComment on above:Order Comment: STAT FOR CTPerformed By: #### FE and TIBC, TONY, CMP, [id number] ####[facility] [address] [place] [address] USACARCINOEMBRYONIC ANTIGENon 02-24-2025 Interpretation and review of laboratory resultsAbnormalAtrium Health KannapolisCEA ser/plasOrdered By: Chivo Keller on 02-24-2025 Carcinoembryonic Ag [Mass/Vol]Serum or plasma carcinoembryonic antigen measurement (mass/volume)High0.0-3.0[facility] CampusCT abdomen pelvis wo conon 86-72-4868ZX abdomen pelvis wo [facility] [place] [address] [place] [address] CT Scan Report Signed Patient: Delano Oliver MR#: [id number] [birth year] : 1940 Acct:[id number] Age/Sex: 84 / M ADM Date: 02/24/25 Loc: Room: Type: [facility] Attending Dr: Chivo Keller II DO Copies to: Chivo Keller II, DO Ordering Provider: Chivo Keller II, DO Date of Service: 02/24/25 CT/CT chest wo con: D50.9 - Iron deficiency anemia, unspecified ([id number]) CT/CT abdomen pelvis wo con: D50.9 - [...] Jr., D.OKeo 02/24/2025 11:32 AM Dictation Location: [place] [address] Transcribed By: [facility] 02/24/25 1132 Dictated By: Sotero Scott Jr, DO 02/24/25 1125 Signed By: 02/24/25 1132[facility] Physician GroupCalcium [Mass/volume] in Serum or PlasmaOrdered By: Chivo Keller on 82-68-8920Wdtrtko [Mass/Vol]Calcium [Mass/volume] in Serum or Plasma8.6-10.3FCleveland Clinic Union HospitalCalcium [Mass/Vol]9.3 mg/dLNormal8.6-10.3FCleveland Clinic Union HospitalComment on above:Order Comment: STAT FOR CTPerformed By: #### FE and TIBC, TONY, CMP, [id number] ####[facility] [address] [place] [address] USACarbon dioxide, total [Moles/volume] in Serum or PlasmaOrdered By: Chivo Keller on 43-13-3049ZD5 [Moles/Vol]Carbon dioxide, total [Moles/volume] in Serum or SkmzmlIbjd39.0-31.0[facility] CampusCO2 [Moles/Vol]31.7 mmol/LHigh21.0-31.0[facility] CampusComment on above:Order Comment: STAT FOR CTPerformed By: #### FE and TIBC, TONY, CMP, [id number] ####[address] [address] [place] Chloride [Moles/volume] in Serum or PlasmaOrdered By: Chivo Keller on 11-98-6399Cweycdke [Moles/Vol]Chloride [Moles/volume] in Serum or Alngfj95-014 [facility] CampusChloride [Moles/Vol]105 mmol/USavual71-055 [facility] CampusComment on above:Order Comment: STAT FOR CT Performed By: #### FE and TIBC, TONY, CMP, [id number] ####[address] [address] USAComprehensive Metabolic Panel on 28-26-7908Hfwylsw [Mass/Vol]4.1 g/dLNormal3.5-5.7The [facility] Health Physician GroupComment on above:Order Comment: STAT FOR CTPerformed By: #### FE and TIBC, TONY, CMP, [id number] ####[address] [address] USACreatinine Clr Calc Nfxatnzh78.32NoAtrium Health Mercy Physician GroupComment on above:Order Comment: STAT FOR CTPerformed By: #### FE and TIBC, TONY, CMP, [id number] ####[place] [address] [place] [address] USAEstimated GFR29.659 mL/MinNoAtrium Health Mercy Physician Group Comment on above:Order Comment: STAT FOR CTPerformed By: #### FE and TIBC, TONY, CMP, [id number] ####[address] [address] USACreatinine [Mass/volume] in Serum or PlasmaOrdered By: Chivo Keller on 59-66-2807Bqyymwonfv [Mass/Vol]Creatinine [Mass/volume] in Serum or PlasmaHigh0.70-1.30[facility] CampusCreatinine [Mass/Vol]2.17 mg/dLHigh0.70-1.30[facility] CampusComment on above:Order Comment: STAT FOR CTPerformed By: #### FE and TIBC, TONY, CMP, [id number] ####[facility] [place] [address] [place] Erythropoetin (EPO), Serumon 78-60-8443Udiselqapamnc (EPO), Serum30.4 m[iU]/mL High2.6-18.5The [facility] Health Physician GroupComment on above:Result Comment: JP3 Measurement DxI 800 Immunoassay System Values obtained with different assay methods or kits cannot be used interchangeably. Results cannot be interpreted as absolute evidence of the presence or absence of malignant disease. Performed at: [address] [id number] Critical Care Unit Nurse: Nathan Munoz PhD, Phone: [phone] PERFORMED BY: [facility] [address] [place] [address] PATHOLOGIST VICE PRESIDENT OF MARKETING KRISTEL LU M.D.Performed By: #### RENAL, CBC #### [facility] [address] [place] [address] USAFerritin [Mass/volume] in Serum or PlasmaOrdered By: Chivo Keller on 63-99-7954Reqcxzgj [Mass/Vol]Ferritin [Mass/volume] in Serum or TmbleeVebt93.9-336.2FCleveland Clinic Union HospitalFerritin [Mass/Vol]512.8 ng/mBEilh03.9-336.2FCleveland Clinic Union HospitalComment on above:Order Comment: STAT FOR CTPerformed By: #### FE and TIBC, TONY, CMP, [id number] ####[place] [address] [place] [address] USAFolate [Mass/volume] in Serum or PlasmaOrdered By: Chivo Keller on 35-71-2380Tqgiag [Mass/Vol]Folate [Mass/volume] in Serum or Plasma>5.9[facility]ron CampusFolate [Mass/Vol]31.0 ng/mL>5.9[facility] Akron CampusComment on above:Folate reference range: >5.9 ng/mlThe WHO technical consultation on folate and vitamin q92wbuocmqitdzu has determined that folate concentrations lessthan 4 ng/ml are considered deficient.Globulin Calc (S) [Mass/Vol]Ordered By: Chivo Keller on 08-19-5030Ofunnbcf (S) [Mass/Vol] Serum globulin measurement by calculation (mass/volume)[facility] CampusGlucose [Mass/volume] in Serum or PlasmaOrdered By: Chivo Keller on 95-71-0795Aqmxfhw [Mass/Vol]Glucose [Mass/volume] in Serum or YnzqrhQygz86-915JkgotshiiSumma Health Akron CampusGlucose [Mass/Vol]122 mg/dLHigh 70-100[facility] CampusComment on above:ADA recommended reference rangeRandom Glucose Reference [...] By: #### FE and TIBC, TONY, CMP, [id number] ####[facility] [place] [address] USAIron [Mass/volume] in Serum or PlasmaOrdered By: Chivo Keller on 35-38-3944Wcbm [Mass/Vol]Iron [Mass/volume] in Serum or Qhslcb34-285NcouhlnkgSumma Health Akron CampusIron [Mass/Vol]52 ug/cSYrzpsz99-319GpwrtnjenSumma Health Akron CampusComment on above:Order Comment: STAT FOR CTPerformed By: #### FE and TIBC, TONY, CMP, [id number] ####[facility] [address] [place] [address] USAIron and TIBC Profileon 02-24-2025% Iron Nhngndcopc89.5 %Mui02-80Kjc [facility] Health Physician GroupComment on above:Order Comment: STAT FOR CTPerformed By: #### FE and TIBC, TONY, CMP, [id number] ####[place] [address] [place] [address] USATotal Iron Binding Qjtxltex722 ug/yEHiteoc445-090Tjn [facility] Health Physician GroupComment on above:Order Comment: STAT FOR CTPerformed By: #### FE and TIBC, TONY, CMP, [id number] ####[place] [id number] USANo Panel Information Ordered By: Chivo Keller on 27-81-3947Khflxmqfr GFR (CKD-EPI)29.659 mL/Min [facility] CampusPharmacy Creatinine Clearance (Chem31.32 [facility]29.659 mL/MinSumma Health Akron Campus 31.32Sum[facility] CampusPotassium [Moles/volume] in Serum or PlasmaOrdered By: Chivo Keller on 11-00-9993Mcfyrpbop [Moles/Vol]Potassium [Moles/volume] in Serum or Plasma3.5-5.1FC[facility] Clinic [facility] Hospital Potassium [Moles/Vol]4.0 mmol/LNormal3.5-5.1FC[facility] Hospital Comment on above:Order Comment: STAT FOR CTPerformed By: #### FE and TIBC, TONY, CMP, [id number] ####[place] [id number] USAProtein [Mass/volume] in Serum or PlasmaOrdered By: Chivo Keller on 24-32-3989Yrnsqik [Mass/Vol]Protein [Mass/volume] in Serum or Plasma6.4-8.9 [facility] CampusProtein [Mass/Vol]7.0 g/dLNormal6.4-8.9 [facility] CampusComment on above:Order Comment: STAT FOR CT Performed By: #### FE and TIBC, TONY, CMP, [id number] ####[place] [id number] USASerum globulin measurement by calculation (mass/volume)Ordered By: Chivo Keller on 36-75-5146Ssutiqmp (S) [Mass/Vol]2.9 g/dLNormalSumma Health Akron CampusComment on above:Order Comment: STAT FOR CTPerformed By: #### FE and TIBC, TONY, CMP, [id number] ####[facility] [place] [address] USASerum or plasma albumin/globulin mass ratioOrdered By: Chivo Keller on 02-24-2025 Albumin/Globulin [Mass ratio]Serum or plasma albumin/globulin mass ratio [facility] CampusAlbumin/Globulin [Mass ratio]1.4 {ratio}Normal [facility] CampusComment on above:Order Comment: STAT FOR CT Performed By: #### FE and TIBC, TONY, CMP, [id number] ####[facility] [place] [address] USASerum or plasma anion gap determinationOrdered By: Chivo Keller on 16-93-0349Gbwot gap [Moles/Vol] Serum or plasma anion gap determination6.0-15.0[facility] Anion gap [Moles/Vol]10.3 mmol/LNormal6.0-15.0[facility] Comment on above:Order Comment: STAT FOR CTPerformed By: #### FE and TIBC, TONY, CMP, [id number] ####[facility] [place] [address] USASerum or plasma erythropoietin (EPO) measurement (units/volume)Ordered By: Chivo Keller on 08-70-9039Saqnlapccsijxx (EPO) QnSerum or plasma erythropoietin (EPO) measurement (units/volume)High2.6-18.5FCleveland Clinic Union HospitalErythropoietin (EPO) Qn30.4 mIU/mLHigh2.6-18.5FCleveland Clinic Union HospitalComment on above:[employer]hell [employer] Groupel DxI 800 Immunoassay SystemValues obtained with different assay methods or kits cannotbe used interchangeably. Results cannot be interpreted asabsolute evidence of the presence or absence of malignantdisease.Performed at: [facility] [place], [place] [id number] Director: Nathan Munoz PhD, Phone: [phone] or plasma iron binding capacity measurement (mass/volume)Ordered By: Chivo Keller on 34-92-4785Gbhi binding capacity [Mass/Vol]Iron binding capacity [Mass/volume] in Serum or Dfqkhm770-570TpudigkcoSumma Health Akron CampusIron binding capacity [Mass/Vol]267 ug/vQ488-736NsbbulejkSelect Medical Specialty Hospital - Cincinnati Northerum or plasma iron saturation measurement (mass fraction)Ordered By: Chivo Keller on 36-83-2342Ycro saturation [Mass fraction]Iron saturation [Mass Fraction] in Serum or ZzmdzfKvn26-25EoiuvkutsSumma Health Akron CampusIron saturation [Mass fraction]19.5 %Acp57-14VqqxslyovSelect Medical Specialty Hospital - Cincinnati Northodium [Moles/volume] in Serum or PlasmaOrdered By: Chivo Keller on 02-24-2025 Sodium [Moles/Vol]Sodium [Moles/volume] in Serum or Qdyyei582-546ErqijlqaiSelect Medical Specialty Hospital - Cincinnati Northodium [Moles/Vol]143 mmol/JHnkgjz878-785Gkmxlrkwk12 [place] StreetComment on above:Order Comment: STAT FOR CTPerformed By: #### FE and TIBC, TONY, CMP, [id number] ####[facility] [address] [place] [address] USATransferrin [Mass/volume] in Serum or Plasma Ordered By: Chivo Keller on 19-43-7753Sfzgqzotgpg [Mass/Vol]Transferrin [Mass/volume] in Serum or TlxljzLaj889-277PlnekkautSumma Health Akron Campus Transferrin [Mass/Vol]191 mg/mLVxw672-578Vvpmktswe[address] Comment on above:Order Comment: STAT FOR CTPerformed By: #### FE and TIBC, TONY, CMP, [id number] ####[facility] [address] [place] [address] USAUrea nitrogen [Mass/volume] in Serum or PlasmaOrdered By: Chivo Keller on 82-75-2664Bajq nitrogen [Mass/Vol]Urea nitrogen [Mass/volume] in Serum or PlasmaHigh7-25[facility] CampusUrea nitrogen [Mass/Vol] 43 mg/dLHigh7-25[facility] CampusComment on above:Order Comment: STAT FOR CTPerformed By: #### FE and TIBC, TONY, CMP, [id number] ####[address] [place] [address] USAVit. B12/Folate Profileon 14-95-6567Pmpoyn73.0 ng/mLNormal>5.9[facility] Comment on above:Order Comment: STAT FOR CTResult Comment: Folate reference range: >5.9 ng/ml The WHO technical consultation on folate and vitamin b12 deficiencies has determined that folate concentrations less than 4 ng/ml are considered deficient. PERFORMED BY: [facility] [address] [place] [address] PATHOLOGIST VICE PRESIDENT OF MARKETING KRISTEL LU M.D.Performed By: #### FE and TIBC, TONY, CMP, [id number] ####[address] [address] USAVitamin B12 ser/plasOrdered By: Chivo Keller on 86-95-6724Sojajrkry (Vitamin B12) [Mass/Vol]Vitamin B12 ser/zfrc999-845BcaypibhfSumma Health Akron CampusCobalamin (Vitamin B12) [Mass/Vol]445 pg/jPJuockb884-545ByapillckSumma Health Akron Campus Comment on above:Order Comment: STAT FOR CTPerformed By: #### FE and TIBC, TONY, CMP, [id number] ####[address] [address] USACholesterol in LDL Calc [Mass/Vol]on 48-22-8545Bmlfdatayap in LDL [Mass/Vol]Cholesterol in LDL [Mass/volume] in Serum or Plasma by calculation [facility] CampusCholesterol in LDL [Mass/Vol]74.2 mg/dL [facility] CampusComment on above:<100 mg/dl UTALDNS662-008 mg/dl NEAR OR ABOVE ZNKXNQS833-135 mg/dl BORDERLINE WBKX845-979 mg/dl HIGH>190 mg/dl VERY HIGHCholesterol in VLDL Calc [Mass/Vol]on 08-50-6355Oipoiymkdxg in VLDL [Mass/Vol]Cholesterol in VLDL [Mass/volume] in Serum or Plasma by calculationSumma Health Akron CampusCholesterol in VLDL [Mass/Vol]13.8 mg/dLSumma Health Akron CampusGlucose mean value [Mass/volume] in Blood Estimated from glycated hemoglobinon 65-84-0741Yrhvuaq glucose Estimated from glycated hemoglobin (Bld) [Mass/Vol]Glucose mean value [Mass/volume] in Blood Estimated from glycated hemoglobinSumma Health Akron CampusAverage glucose Estimated from glycated hemoglobin (Bld) [Mass/Vol]126 mg/dLSumma Health Akron CampusHemoglobin A1c percentageon 66-52-9331BiV4r (Bld) [Mass fraction]Hemoglobin A1c percentage4.5-6.2FCleveland Clinic Union HospitalHbA1c (Bld) [Mass fraction]6.0 %4.5-6.2FCleveland Clinic Union HospitalComment on above:ADA RECOMMENDED LIMIT 4.0 - 6.0ADA THERAPEUTIC TARGET < 7.0ACTION SUGGESTED> 7.0Laboratory - Chemistry and Chemistry - challengeon 02-20-2025 Cholesterol [Mass/Vol]135 mg/dL<=200[facility] CampusCholesterol in HDL [Mass/Vol]47 mg/eK99-83GzixlvxtySumma Health Akron CampusComment on above:> or =60 mg/dl - LOW CARDIOVASCULAR RISK<40 mg/dl - HIGH CARDIOVASCULAR RISKFree T4 [Mass/Vol]0.83 ng/dL0.76-1.46[facility] Triglyceride [Mass/Vol]69 mg/dL<=150Sum[facility] CampusTSH Qn 19.694 m[IU]/LHigh0.358-3.740[facility] CampusNo Panel Informationon 52-27-1520Hllosufk Specific Antigen Screen0.98 ng/mL<=4.00 [facility] CampusTotal Wmkoubnzvigznmcy45 ng/aMPqjljyrc94-595 [facility] CampusComment on above:Performed at: - [facility] [id number] Director: Nathan Munoz PhD, Phone: [phone] ng/aWWyzufkqq49-467WrstgdedgSumma Health Akron Campus0.83 ng/dL0.76-1.46[facility]0.98 ng/mL<=4.00[facility]19.694 u[iU]/mLHigh0.358-3.740[facility]135 mg/dL<=200[facility]47 mg/sF84-69ZaafrmwhzSumma Health Akron Campus69 mg/dL<=150[facility] Northerum or plasma total cholesterol/high density lipoprotein (HDL) cholesterol mass virgil 32-45-3922Vkyojjvikxn.total/Cholesterol in HDL [Mass ratio]Serum or plasma total cholesterol/high density lipoprotein (HDL) cholesterol mass [facility] HospitalCholesterol.total/Cholesterol in HDL [Mass ratio]2.9 {ratio}[facility] CampusComment on above:3.3 - 4.4 LOW RISK4.4 - 7.1 AVERAGE RISK7.1 - 11.0 MODERATE RISK>11.0 HIGH XMPN93dx 28-69-301588Evkfaovl by: RUSSEL LYNCH on: 02/14/2025 03:45 PM Modules accepted: OrdersNormalUniversMercy Memorial HospitalDocumentationon [id number] Delano Oliver 1940 Date Provider Department Center 02/14/2025 ENRRIQUE TAVAREZ Family History Problem Relation Age of Onset Diabetes Mother Heart disease Father Glaucoma Brother Diabetes Maternal Grandmother Clotting disorder Other Family Status - Relation Status Age at Mother Father Brother Maternal Grandmother Other Reason for Visit and Comments: Hypertension [294069][facility]36on Please call patient the week of 02/11/25 for a BP check. Thanks![facility] for RehabilitationTelephoneon [id number] Delano Oliver 1940 M Date Provider Department Center 01/29/2025 ENRRIQUE TAVAREZ Family History Problem Relation Age of Onset Diabetes Mother Heart disease Father Glaucoma Brother Diabetes Maternal Grandmother Clotting disorder Other Family Status - Relation Status Age at Mother Father Brother Maternal Grandmother OtherNormalUniversMercy Memorial HospitalOffice Visiton 88-51-1249Fslunn-up [id number] Delano Oliver 1940 M Date Provider Department Center 01/28/2025 ENRRIQUE TAVAREZ CARD [facility] Family History Problem Relation Age of Onset Diabetes Mother Heart disease Father Glaucoma Brother Diabetes Maternal Grandmother Clotting disorder Other Family Status - Relation Status Age at Mother Father Brother Maternal Grandmother Other Level of Service:57683 HI OFFICE/OUTPATIENT ESTABLISHED MOD MDM 30 MIN Reason for Visit and Comments: Atrial Fibrillation [80] Congestive Heart Failure [127] Hypertension [901332]NormalUnUniversity Hospitals Ahuja Medical CenterAlbumin [Mass/volume] in Serum or Plasma by Bromocresol green (BCG) dye binding metho Ordered By: Sotero Black on 41-26-2109Gdioxmt BCG dye [Mass/Vol]Albumin [Mass/volume] in Serum or Plasma by Bromocresol green (BCG) dye binding metho 3.5-5.7FCleveland Clinic Union HospitalBasophils Auto (Bld) [#/Vol]Ordered By: Sotero Black on 40-30-6053Gjskgwkbc (Bld) [#/Vol]Automated basophil count0.0-0.2 [facility] CampusBasophils/100 WBC Auto (Bld)Ordered By: Sotero Black on 18-26-9171Lecgenplw/100 WBC (Bld)Automated basophil %.[facility] CampusCalcium [Mass/volume] in Serum or PlasmaOrdered By: Sotero Black on 01-44-9516Vacbjrt [Mass/Vol]Calcium [Mass/volume] in Serum or PlasmaLow8.6-10.3FCleveland Clinic Union HospitalCarbon dioxide, total [Moles/volume] in Serum or PlasmaOrdered By: Sotero Black on 72-09-0426RH6 [Moles/Vol]Carbon dioxide, total [Moles/volume] in Serum or Tihogz80.0-31.0 [facility] CampusChloride [Moles/volume] in Serum or Plasma Ordered By: Sotero Black on 58-22-9574Mejdupim [Moles/Vol]Chloride [Moles/volume] in Serum or Rfasyw53-077NppedhwrdSumma Health Akron CampusComplete Blood Count Auto Diffon 15-22-4519Qgctdrgus (Bld) [#/Vol]0.1 10*3/uLNormal 0.0-0.2The [facility] Physician GroupComment on above:Order Comment: Comment results to PCP Dr Linda and [facility] NephroResult Comment: PERFORMED BY: [place] [address] PATHOLOGIST VICE PRESIDENT OF MARKETING KRISTEL LU M.D.Performed By: #### RENAL, CBC #### [place] [address] USABasophils/100 WBC (Bld)2.2 %Normal.The [facility] Physician GroupComment on above:Order Comment: Comment results to PCP Dr Linda and [facility] NephroPerformed By: #### RENAL, CBC #### [place] [address] USAEosinophils (Bld) [#/Vol]0.2 10*3/uLNormal0.0-0.45The [facility] Physician GroupComment on above:Order Comment: Comment results to PCP Dr Linda and [facility] NephroPerformed By: #### RENAL, CBC #### [place] [address] USAEosinophils/100 WBC (Bld)2.8 %Normal.The [facility] Physician GroupComment on above:Order Comment: Comment results to PCP Dr Linda and [facility] NephroPerformed By: #### RENAL, CBC #### [place] [address] USAErythrocyte distribution width (RBC) [Ratio]14.7 %Normal 12.0-14.8The [facility] Physician GroupComment on above:Order Comment: Comment results to PCP Dr Linda and [facility] NephroPerformed By: #### RENAL, CBC #### [place] [address] USAHematocrit (Bld) [Volume fraction]28.3 %Low38.8-50.0The [facility] Physician GroupComment on above:Order Comment: Comment results to PCP Dr Linda and [facility] NephroPerformed By: #### RENAL, CBC #### [place] [address] USAHemoglobin (Bld) [Mass/Vol]9.7 g/dLLow13.0-17.0The [facility] Physician GroupComment on above:Order Comment: Comment results to PCP Dr Linda and [facility] NephroPerformed By: #### RENAL, CBC #### [place] [address] USALymphocytes (Bld) [#/Vol]1.2 10*3/uLNormal1.00-4.8The [facility] Physician GroupComment on above:Order Comment: Comment results to PCP Dr Linda and [facility] NephroPerformed By: #### RENAL, CBC #### [place] [address] USALymphocytes/100 WBC (Bld)18.7 %Normal.The [facility] Physician GroupComment on above:Order Comment: Comment results to PCP Dr Linda and [facility] NephroPerformed By: #### RENAL, CBC #### [address] StreetH (RBC) [Entitic mass]32.4 kqQaeebo35.5-35.2The [facility] Physician GroupComment on above:Order Comment: Comment results to PCP Dr Linda and [facility] NephroPerformed By: #### RENAL, CBC #### [address] StreetV (RBC) [Entitic vol]94.1 pGGrgcii94.5-101The [facility] Physician GroupComment on above:Order Comment: Comment results to PCP Dr Linda and [facility] NephroPerformed By: #### RENAL, CBC #### [place] [address] USAMean Corpuscular HGB Conc34.4 g/wKRlcbmk68.5-35.6The [facility] Physician GroupComment on above:Order Comment: Comment results to PCP Dr Linda and [facility] NephroPerformed By: #### RENAL, CBC #### [facility] [address] [place] [address] USAMonocytes (Bld) [#/Vol]0.6 10*3/uLNormal0.0-0.8The [facility] Physician GroupComment on above:Order Comment: Comment results to PCP Dr Linda and [facility] NephroPerformed By: #### RENAL, CBC #### [facility] [id number] USAMonocytes/100 WBC (Bld)9.4 %Normal.The [facility] Physician GroupComment on above:Order Comment: Comment results to PCP Dr Linda and [facility] NephroPerformed By: #### RENAL, CBC #### [place] [address] USANeutrophils (Bld) [#/Vol]4.2 10*3/uLNormal1.8-7.7The [facility] Physician GroupComment on above:Order Comment: Comment results to PCP Dr Linda and [facility] NephroPerformed By: #### RENAL, CBC #### [address] [address] USANeutrophils/100 WBC (Bld)66.9 %Normal.The [facility] Physician GroupComment on above:Order Comment: Comment results to PCP Dr Linda and [facility] NephroPerformed By: #### RENAL, CBC #### [address] [address] USANRBC%0.1 /100{WBC}Normal0-0.5[facility] Comment on above:Order Comment: Comment results to PCP Dr Linda and [facility] Nephro Performed By: #### RENAL, CBC #### [address] [address] USAPlatelet mean volume (Bld) [Entitic vol]7.7 fLNormal 6.6-10.1The [facility] Physician GroupComment on above:Order Comment: Comment results to PCP Dr Linda and [facility] NephroPerformed By: #### RENAL, CBC #### [id number] USAPlatelets (Bld) [#/Vol]287 10*3/hBCjgrad112-397Fbb [facility]ician GroupComment on above:Order Comment: Comment results to PCP Dr Linda and [facility] NephroPerformed By: #### RENAL, CBC #### [facility] [phone] USARBC (Bld) [#/Vol]3.01 10*6/uLLow3.90-5.60The [facility] Physician GroupComment on above:Order Comment: Comment results to PCP Dr Linda and [facility] NephroPerformed By: #### RENAL, CBC #### [facility] [address] [place] [address] USAWBC (Bld) [#/Vol]6.2 10*3/uLNormal4.1-10.5The [facility] Physician GroupComment on above:Order Comment: Comment results to PCP Dr Linda and [facility] NephroPerformed By: #### RENAL, CBC #### [facility] [id number] USACreatinine [Mass/volume] in Serum or PlasmaOrdered By: Sotero Black on 48-72-9774Bkudivtzig [Mass/Vol]Creatinine [Mass/volume] in Serum or PlasmaHigh0.70-1.30[facility] CampusEosinophils Auto (Bld) [#/Vol]Ordered By: Sotero Black on 57-49-0812Yguaycztwvm (Bld) [#/Vol]Automated eosinophil count0.0-0.45[facility] CampusEosinophils/100 WBC Auto (Bld)Ordered By: Sotero Black on 76-70-6486Zyejnlgaish/100 WBC (Bld) Automated eosinophil %.[facility] CampusErythrocyte distribution width Auto (RBC) [Ratio]Ordered By: Sotero Black on 43-08-5765Fulkrusmlha distribution width (RBC) [Ratio]Erythrocyte distribution width [Ratio] by Automated count12.0-14.8[facility] CampusGlucose [Mass/volume] in Serum or PlasmaOrdered By: Sotero Black on 06-54-0240Cplanql [Mass/Vol] Glucose [Mass/volume] in Serum or MbdakbTcqy73-971FzbtijmsrSumma Health Akron CampusHematocrit Auto (Bld) [Volume fraction]Ordered By: Sotero Black on 85-58-8285Bceykdjhyq (Bld) [Volume fraction]Hematocrit [Volume Fraction] of Blood by Automated hwcqjPpz05.8-50.0[facility] CampusHemoglobin [Mass/volume] in BloodOrdered By: Sotero Black on 45-97-1594Fggvsiofjp (Bld) [Mass/Vol]Hemoglobin [Mass/volume] in UutwoTud78.0-17.0[facility] CampusLeukocytes [#/volume] corrected for nucleated erythrocytes in Blood by Automated counOrdered By: Sotero Black on 73-77-2149YWZ corrected for nucl RBC Auto (Bld) [#/Vol]Leukocytes [#/volume] corrected for nucleated erythrocytes in Blood by Automated coun4.1-10.5FC[facility] Hospital Lymphocytes Auto (Bld) [#/Vol]Ordered By: Sotero Black on 23-46-5066Khaesdkcguj (Bld) [#/Vol]Lymphocytes [#/volume] in Blood by Automated count1.00-4.8[facility] CampusLymphocytes/100 WBC Auto (Bld)Ordered By: Sotero Black on 63-50-9366Dfvjuuayphr/100 WBC (Bld)Lymphocytes/100 leukocytes in Blood by Automated count.[facility] HospitalH Auto (RBC) [Entitic mass] Ordered By: Sotero Black on 67-82-6808FPY (RBC) [Entitic mass]MCH [Entitic mass] by Automated count27.5-35.2FCleveland Clinic Union HospitalMCHC Auto (RBC) [Mass/Vol]Ordered By: Sotero Black on 17-85-3574NKMP (RBC) [Mass/Vol]MCHC [Mass/volume] by Automated count32.5-35.6FCleveland Clinic Union HospitalMCV Auto (RBC) [Entitic vol]Ordered By: Sotero Black on 88-43-5435AWC (RBC) [Entitic vol]MCV [Entitic volume] by Automated count83.5-101Sum[facility] CampusMonocytes Auto (Bld) [#/Vol]Ordered By: Sotero Black on 01-16-2025 Monocytes (Bld) [#/Vol]Automated blood monocyte count0.0-0.8[facility] CampusMonocytes/100 WBC Auto (Bld)Ordered By: Sotero Black on 01-16-2025 Monocytes/100 WBC (Bld)Automated monocyte %.[facility] Neutrophils Auto (Bld) [#/Vol]Ordered By: Sotero Black on 60-90-5126Iroexsdnekg (Bld) [#/Vol]Neutrophils [#/volume] in Blood by Automated count1.8-7.7FCleveland Clinic Union HospitalNeutrophils/100 WBC Auto (Bld)Ordered By: Sotero Black on 27-94-7950Ycmyavmpyjr/100 WBC (Bld)Automated neutrophil %.[facility] CampusNo Panel InformationOrdered By: Sotero Black on 49-24-085481.209 mL/MinSumma Health Akron CampusN/AFCleveland Clinic Union Hospital Nucleated erythrocytes [Presence] in Blood by Automated countOrdered By: Sotero Black on 13-93-2694Xokeuuzni RBC Auto Ql (Bld)Nucleated erythrocytes [Presence] in Blood by Automated count0-0.5FCleveland Clinic Union HospitalPhosphate [Mass/volume] in Serum or PlasmaOrdered By: Sotero Black on 93-70-6174Anssijhtf [Mass/Vol]Phosphate [Mass/volume] in Serum or Plasma2.5-4.5FCleveland Clinic Union HospitalPlatelet mean volume Auto (Bld) [Entitic vol]Ordered By: Sotero Black on 57-59-2162Pckvdwxn mean volume (Bld) [Entitic vol]Platelet mean volume [Entitic volume] in Blood by Automated count6.6-10.1FCleveland Clinic Union HospitalPlatelets Auto (Bld) [#/Vol]Ordered By: Sotero Black on 01-16-2025 Platelets (Bld) [#/Vol]Platelets [#/volume] in Blood by Automated sqsog095-044 [facility] CampusPotassium [Moles/volume] in Serum or Plasma Ordered By: Sotero Black on 00-45-1801Pgqodhwsy [Moles/Vol]Potassium [Moles/volume] in Serum or Plasma3.5-5.1FCleveland Clinic Union HospitalRBC Auto (Bld) [#/Vol]Ordered By: Sotero Black on 88-29-8047QZX (Bld) [#/Vol] Erythrocytes [#/volume] in Blood by Automated countLow3.90-5.60[facility] CampusRenal Function Panelon 30-35-1537Hsdzson [Mass/Vol]3.7 g/dLNormal3.5-5.7The [facility] Physician GroupComment on above:Order Comment: Comment results to PCP Dr Linda and [facility] NephroResult Comment: PERFORMED BY: [place] [address] PATHOLOGIST VICE PRESIDENT OF MARKETING KRISTEL LU M.D.Performed By: #### RENAL, CBC #### [place] [address] USAAnion gap [Moles/Vol]12.3 mmol/LNormal6.0-15.0The [facility] Physician GroupComment on above:Order Comment: Comment results to PCP Dr Linda and [facility] NephroPerformed By: #### RENAL, CBC #### [facility] [address] [place] [address] USACalcium [Mass/Vol]7.8 mg/dLLow8.6-10.3The [facility] Physician GroupComment on above:Order Comment: Comment results to PCP Dr Linda and [facility] NephroPerformed By: #### RENAL, CBC #### [facility] [address] [place] [phone] USAChloride [Moles/Vol]104 mmol/UHyaocj91-410Ndu [facility]ician GroupComment on above:Order Comment: Comment results to PCP Dr Linda and [facility] NephroPerformed By: #### RENAL, CBC #### [facility] [address] [place] [phone] USACO2 [Moles/Vol]28.6 mmol/AFzlxzy04.0-31.0The [facility] Physician GroupComment on above:Order Comment: Comment results to PCP Dr Linda and FPG NephroPerformed By: #### RENAL, CBC #### [facility] [address] [place] [address] USACreatinine [Mass/Vol]2.57 mg/dLHigh0.70-1.30The [facility] Physician GroupComment on above:Order Comment: Comment results to PCP Dr Linda and [facility]PG NephroPerformed By: #### RENAL, CBC #### [facility] [address] [place] [address] USAEstimated GFR24.209 mL/MinNormalThe [facility] Health Physician GroupComment on above:Order Comment: Comment results to PCP Dr Linda and FPG NephroPerformed By: #### RENAL, CBC #### [facility] [address] [place] [phone] USAGlucose [Mass/Vol]117 mg/rMPtpg17-096Nfc [facility] Physician GroupComment on above:Order Comment: Comment results to PCP Dr Linda and FPG NephroResult Comment: Random Glucose Reference Range is dependent on time and content of last meal. Glucose of more than 200 mg/dL in a nonstressed, ambulatory subject supports the diagnosis of Diabetes Mellitus. ADA recommended reference rangePerformed By: #### RENAL, CBC #### [facility] [address] [place] [address] USAPhosphate [Mass/Vol]3.5 mg/dLNormal2.5-4.5The [facility] Physician GroupComment on above:Order Comment: Comment results to PCP Dr Linda and [facility]PG NephroPerformed By: #### RENAL, CBC #### [facility] [address] [place] [phone] USAPotassium [Moles/Vol]3.9 mmol/LNormal3.5-5.1The [facility] Physician GroupComment on above:Order Comment: Comment results to PCP Dr Linda and [facility] NephroPerformed By: #### RENAL, CBC #### [facility] [address] [place] [address] USASodium [Moles/Vol]141 mmol/GGnrnzl470-340Eur [facility] Physician GroupComment on above:Order Comment: Comment results to PCP Dr Linda and [facility] NephroPerformed By: #### RENAL, CBC #### [facility] [address] [place] [phone] USAUrea nitrogen [Mass/Vol]45 mg/dLHigh7-25The [facility] Physician GroupComment on above:Order Comment: Comment results to PCP Dr Linda and [facility] NephroPerformed By: #### RENAL, CBC #### [facility] [address] [place] [address] USASerum or plasma anion gap determinationOrdered By: Sotero Black on 84-54-7090Dzeyd gap [Moles/Vol]Serum or plasma anion gap determination 6.0-15.0[facility] Cincinnati Northodium [Moles/volume] in Serum or PlasmaOrdered By: Sotero Black on 38-63-3127Jqbemo [Moles/Vol]Sodium [Moles/volume] in Serum or Siesch847-309ObnyztunaSumma Health Akron CampusUrea nitrogen [Mass/volume] in Serum or PlasmaOrdered By: Sotero Black on 01-16-2025 Urea nitrogen [Mass/Vol]Urea nitrogen [Mass/volume] in Serum or PlasmaHigh7-25 [facility] CampusWBC Auto (Bld) [#/Vol]Ordered By: Sotero Black on 18-60-7828QCX (Bld) [#/Vol]Leukocytes [#/volume] in Blood by Automated count 4.1-10.5FCleveland Clinic Union HospitalX-ray reportOrdered By: Sotero Scott on 11-79-0827Fabgs reportSumma Health Akron CampusXR hip RT min 2V(w/wo pelvis)*on 32-70-7379PT hip RT min 2V(w/wo pelvis)*[facility] [address] [place] [address] XRay Report Signed Patient: Delano Oliver MR#: [id number] 26 : 1940 Acct:[id number] Age/Sex: 84 / M ADM Date: 01/14/25 Loc: [facility]: [facility]: Walker Soria MD Copies to: [...] Scott Jr., D.OKeo01/14/2025 3:42 PM Dictation Location: RADIO--22 Transcribed By: CALI 01/14/25 1542 Dictated By: Sotero Scott Jr, DO 01/14/25 154 Signed By: 01/14/25 1542[facility] Physician GroupAlbumin [Mass/volume] in Serum or Plasma by Bromocresol green (BCG) dye binding methoOrdered By: Sotero Black on 72-90-6293Hyuomgl BCG dye [Mass/Vol]Albumin [Mass/volume] in Serum or Plasma by Bromocresol green (BCG) dye binding methoLow3.5-5.7FCleveland Clinic Union HospitalBasophils Auto (Bld) [#/Vol]Ordered By: Sotero Black on 01-10-2025 Basophils (Bld) [#/Vol]Automated basophil count0.0-0.2FCleveland Clinic Union HospitalBasophils/100 WBC Auto (Bld)Ordered By: Sotero Black on 01-10-2025 Basophils/100 WBC (Bld)Automated basophil %.[facility] Calcium [Mass/volume] in Serum or PlasmaOrdered By: Sotero Black on 01-10-2025 Calcium [Mass/Vol]Calcium [Mass/volume] in Serum or PlasmaLow8.6-10.3FCleveland Clinic Union HospitalCarbon dioxide, total [Moles/volume] in Serum or Plasma Ordered By: Sotero Black on 01-15-8703DG8 [Moles/Vol]Carbon dioxide, total [Moles/volume] in Serum or Spkhpv16.0-31.0[facility] Chloride [Moles/volume] in Serum or PlasmaOrdered By: Sotero Black on 01-10-2025 Chloride [Moles/Vol]Chloride [Moles/volume] in Serum or Jbzmsw35-898ZrhinretdSumma Health Akron CampusComplete Blood Count Auto Diffon 81-03-9420Wkcizzdkv (Bld) [#/Vol]0.0 10*3/uLNormal0.0-0.2The [facility] Physician GroupComment on above:Result Comment: PERFORMED BY: [address] [address] [place] [address] PATHOLOGIST VICE PRESIDENT OF MARKETING KRISTEL LU M.D.Performed By: #### RENAL, CBC ####[address] [address]NGISagxjigyc/100 WBC (Bld)0.5 % Normal.The [facility] Physician GroupComment on above:Performed By: #### RENAL, CBC ####[address] [address]LAW Eosinophils (Bld) [#/Vol]0.2 10*3/uLNormal0.0-0.45[facility] Comment on above:Performed By: #### RENAL, CBC ####[address] [address]PSFComhgrryrlw/100 WBC (Bld)2.6 %Normal. The [facility] Physician GroupComment on above:Performed By: #### RENAL, CBC ####[address] [address]LAC Erythrocyte distribution width (RBC) [Ratio]15.0 %High12.0-14.8The [facility] Health Physician GroupComment on above:Performed By: #### RENAL, CBC ####[address] [address]LRJJaviksoeka (Bld) [Volume fraction]24.3 %Low38.8-50.0The [facility]ician GroupComment on above:Performed By: #### RENAL, CBC ####[address] [address]CALLfgmmlazjx (Bld) [Mass/Vol]8.2 g/dLLow13.0-17.0The [facility] Physician GroupComment on above:Performed By: #### RENAL, CBC ####[address] [address]MWJ Lymphocytes (Bld) [#/Vol]0.9 10*3/uLLow1.00-4.8[facility] Comment on above:Performed By: #### RENAL, CBC ####[address] [address]DOTFsnxvmgdejj/100 WBC (Bld)14.9 %Normal. The [facility] Physician GroupComment on above:Performed By: #### RENAL, CBC ####[address] [address]DCDJQA (RBC) [Entitic mass]31.8 biJnoecj01.5-35.2The [facility] Physician GroupComment on above:Performed By: #### RENAL, CBC ####[address] [address]MWHRJI (RBC) [Entitic vol]94.3 xCNokbig23.5-101The [facility] Physician GroupComment on above:Performed By: #### RENAL, CBC ####[address] [address]ADGEjsk Corpuscular HGB Conc33.7 g/wPSxatjj91.5-35.6The [facility] Physician GroupComment on above:Performed By: #### RENAL, CBC ####[address] [address]TNIDprtscxwe (Bld) [#/Vol]0.7 10*3/uLNormal0.0-0.8 The [facility] Physician GroupComment on above:Performed By: #### RENAL, CBC ####[address] [address]YNN Monocytes/100 WBC (Bld)11.5 %Normal.The [facility] Physician GroupComment on above:Performed By: #### RENAL, CBC ####[address] [address]EHPMwadydalfpd (Bld) [#/Vol]4.4 10*3/uLNormal1.8-7.7The [facility] Physician GroupComment on above:Performed By: #### RENAL, CBC ####[address] [place], [place] [address]DPL Neutrophils/100 WBC (Bld)70.5 %Normal.The [facility] Physician GroupComment on above:Performed By: #### RENAL, CBC ####[address] [address]QYVFQRG%0.1 /100{WBC}Normal0-0.5The [facility] Physician GroupComment on above:Performed By: #### RENAL, CBC ####[address] [address]IMWOshovxiv mean volume (Bld) [Entitic vol]6.9 fLNormal6.6-10.1The [facility] Physician GroupComment on above: Performed By: #### RENAL, CBC ####[address] [address]JSKWugeqwjwc (Bld) [#/Vol]323 10*3/cTQbagfp275-921Mss [facility] Physician GroupComment on above:Performed By: #### RENAL, CBC ####[address] [address]LIURQR (Bld) [#/Vol]2.58 10*6/uLLow3.90-5.60The [facility] Physician GroupComment on above:Performed By: #### RENAL, CBC ####[address] [address]JKZYTD (Bld) [#/Vol]6.3 10*3/uLNormal4.1-10.5The [facility] Physician GroupComment on above:Performed By: #### RENAL, CBC ####[address] [address]HJF Creatinine [Mass/volume] in Serum or PlasmaOrdered By: Sotero Black on 32-91-8040Bjgwkgwbae [Mass/Vol]Creatinine [Mass/volume] in Serum or PlasmaHigh 0.70-1.30[facility] CampusEosinophils Auto (Bld) [#/Vol]Ordered By: Sotero Black on 54-84-9759Qlfpkfjrrec (Bld) [#/Vol]Automated eosinophil count0.0-0.45[facility] CampusEosinophils/100 WBC Auto (Bld) Ordered By: Sotero Black on 24-65-1699Xpbqbbjhuqa/100 WBC (Bld)Automated eosinophil %.[facility] CampusErythrocyte distribution width Auto (RBC) [Ratio]Ordered By: Sotero Black on 69-30-0466Ntewdwngbjb distribution width (RBC) [Ratio]Erythrocyte distribution width [Ratio] by Automated count High12.0-14.8[facility] CampusGlucose [Mass/volume] in Serum or PlasmaOrdered By: Sotero Black on 73-38-6667Sithavt [Mass/Vol]Glucose [Mass/volume] in Serum or Xjpcgh81-425EbvobbvqjSumma Health Akron Campus Hematocrit Auto (Bld) [Volume fraction]Ordered By: Sotero Black on 01-10-2025 Hematocrit (Bld) [Volume fraction]Hematocrit [Volume Fraction] of Blood by Automated oalcxWvs08.8-50.0[facility] CampusHemoglobin [Mass/volume] in BloodOrdered By: Sotero Black on 47-39-1587Hrpanfjbpq (Bld) [Mass/Vol]Hemoglobin [Mass/volume] in SzvabRjg34.0-17.0[facility] CampusLeukocytes [#/volume] corrected for nucleated erythrocytes in Blood by Automated counOrdered By: Sotero Black on 64-44-7620FTV corrected for nucl RBC Auto (Bld) [#/Vol]Leukocytes [#/volume] corrected for nucleated erythrocytes in Blood by Automated coun4.1-10.5[facility] Lymphocytes Auto (Bld) [#/Vol]Ordered By: Sotero Black on 23-91-2618Kejrcdfamnv (Bld) [#/Vol]Lymphocytes [#/volume] in Blood by Automated countLow1.00-4.8 [facility] CampusLymphocytes/100 WBC Auto (Bld)Ordered By: Sotero Black on 51-43-2228Ntwbeedfant/100 WBC (Bld)Lymphocytes/100 leukocytes in Blood by Automated count.[facility] CampusMCH Auto (RBC) [Entitic mass]Ordered By: Sotero Black on 61-65-2268KYW (RBC) [Entitic mass]MCH [Entitic mass] by Automated count27.5-35.2[facility] HospitalMCHC Auto (RBC) [Mass/Vol]Ordered By: Sotero Black on 68-49-7828LWTW (RBC) [Mass/Vol] MCHC [Mass/volume] by Automated count32.5-35.6[facility] MCV Auto (RBC) [Entitic vol]Ordered By: Sotero Black on 22-65-7654IVU (RBC) [Entitic vol]MCV [Entitic volume] by Automated count83.5-101[facility] CampusMonocytes Auto (Bld) [#/Vol]Ordered By: Sotero Black on 01-10-2025 Monocytes (Bld) [#/Vol]Automated blood monocyte count0.0-0.8[facility] CampusMonocytes/100 WBC Auto (Bld)Ordered By: Sotero Black on 01-10-2025 Monocytes/100 WBC (Bld)Automated monocyte %.[facility] Neutrophils Auto (Bld) [#/Vol]Ordered By: Sotero Black on 22-71-0462Mtradteciiv (Bld) [#/Vol]Neutrophils [#/volume] in Blood by Automated count1.8-7.7FC[facility] HospitalNeutrophils/100 WBC Auto (Bld)Ordered By: Sotero Black on 75-85-5980Toqqtrjuyub/100 WBC (Bld)Automated neutrophil %.[facility] CampusNo Panel InformationOrdered By: Sotero Black on 96-11-029296.816 mL/MinSumma Health Akron Campus28.42[facility] Nucleated erythrocytes [Presence] in Blood by Automated countOrdered By: Sotero Black on 77-95-4501Xgzlsakbs RBC Auto Ql (Bld)Nucleated erythrocytes [Presence] in Blood by Automated count0-0.5FC[facility] Union HospitalPhosphate [Mass/volume] in Serum or PlasmaOrdered By: Sotero Black on 07-33-9301Owqxzvrlp [Mass/Vol]Phosphate [Mass/volume] in Serum or Plasma2.5-4.5FC[facility] Union HospitalPlatelet mean volume Auto (Bld) [Entitic vol]Ordered By: Sotero Black on 40-03-3401Qjatiima mean volume (Bld) [Entitic vol]Platelet mean volume [Entitic volume] in Blood by Automated count6.6-10.1FC[facility] HospitalPlatelets Auto (Bld) [#/Vol]Ordered By: Sotero Black on 01-10-2025 Platelets (Bld) [#/Vol]Platelets [#/volume] in Blood by Automated itxyw151-140 [facility] CampusPotassium [Moles/volume] in Serum or Plasma Ordered By: Sotero Black on 18-68-6529Ruekktxcw [Moles/Vol]Potassium [Moles/volume] in Serum or Plasma3.5-5.1FC[facility] HospitalRBC Auto (Bld) [#/Vol]Ordered By: Sotero Black on 65-32-4823OUM (Bld) [#/Vol] Erythrocytes [#/volume] in Blood by Automated countLow3.90-5.60[facility] CampusRenal Function Panelon 69-68-9700Dvvuasx [Mass/Vol]3.1 g/dLLow3.5-5.7The [facility] Physician GroupComment on above:Performed By: #### RENAL, CBC ####[facility] [address] [place] [address] USAAnion gap [Moles/Vol]10.4 mmol/LNormal6.0-15.0[facility] Comment on above:Performed By: #### RENAL, CBC ####[facility] [place], [place] [address]BWBSgzxolq [Mass/Vol]7.9 mg/dLLow8.6-10.3 The [facility] Physician GroupComment on above:Performed By: #### RENAL, CBC ####[facility] [place], [place] [address]UJXCdvbthue [Moles/Vol]106 mmol/QOkigmd11-073Kpe [facility] Physician GroupComment on above: Performed By: #### RENAL, CBC ####[facility] [address] [place], [place] [address]HADZL5 [Moles/Vol]26.5 mmol/HUbpfux85.0-31.0The [facility] Physician GroupComment on above:Performed By: #### RENAL, CBC ####[facility] [place], [place] [address]HCH Creatinine [Mass/Vol]2.36 mg/dLHigh0.70-1.30The [facility] Physician GroupComment on above:Performed By: #### RENAL, CBC ####[address] [place], [place] [address]FRHMekhjsxtoa Clr Calc Fuwjfntk49.42NormalThe [facility] Health Physician GroupComment on above:Result Comment: PERFORMED BY: [facility] [address] [place] [address] PATHOLOGIST VICE PRESIDENT OF MARKETING KRISTEL LU M.D.Performed By: #### RENAL, CBC ####[address] [place], [place] [address]LOUPycgtzjcl GFR26.816 mL/Min NormalThe [facility] Health Physician GroupComment on above:Performed By: #### RENAL, CBC ####[address] [place], [place] [address]FVH Glucose [Mass/Vol]89 mg/xRCvzmid05-041Xtj [facility] Physician GroupComment on above:Result Comment: Random Glucose Reference Range is dependent on time and content of last meal. Glucose of more than 200 mg/dL in a nonstressed, ambulatory subject supports the diagnosis of Diabetes Mellitus. ADA recommended reference rangePerformed By: #### RENAL, CBC ####[facility] [place], [place] [address]FWYRhaghpazb [Mass/Vol] 3.9 mg/dLNormal2.5-4.5The [facility] Physician GroupComment on above:Performed By: #### RENAL, CBC ####[facility] [place], [place] [address]YENIdkpszhjs [Moles/Vol]3.9 mmol/LNormal3.5-5.1The [facility] Physician GroupComment on above:Performed By: #### RENAL, CBC ####[address] [place], [place] [address]AZOZyfzmw [Moles/Vol]139 mmol/L Zkzplo476-941Vov [facility] Physician GroupComment on above:Performed By: #### RENAL, CBC ####[address] [address] USAUrea nitrogen [Mass/Vol]41 mg/dLHigh7-25The [facility] Physician GroupComment on above:Performed By: #### RENAL, CBC ####[address] [address]XPPLgjet or plasma anion gap determinationOrdered By: Sotero Black on 01-67-0436Uzjlt gap [Moles/Vol]Serum or plasma anion gap determination6.0-15.0[facility] Northodium [Moles/volume] in Serum or PlasmaOrdered By: Sotero Black on 77-68-3200Jlxilc [Moles/Vol]Sodium [Moles/volume] in Serum or Mjqybo533-620HgqgdiqixSumma Health Akron CampusUrea nitrogen [Mass/volume] in Serum or PlasmaOrdered By: Sotero Black on 01-10-2025 Urea nitrogen [Mass/Vol]Urea nitrogen [Mass/volume] in Serum or PlasmaHigh7-25 [facility] CampusWBC Auto (Bld) [#/Vol]Ordered By: Sotero Black on 73-07-6858AOU (Bld) [#/Vol]Leukocytes [#/volume] in Blood by Automated count 4.1-10.5FC[facility] Union HospitalRenal Function Panelon 01-08-2025 Albumin [Mass/Vol]3.0 g/dLLow3.5-5.7The [facility] Physician GroupComment on above:Performed By: #### RENAL ####[id number] USAAnion gap [Moles/Vol]9.4 mmol/LNormal6.0-15.0The [facility] Physician GroupComment on above:Performed By: #### RENAL ####[id number] USACalcium [Mass/Vol] 7.6 mg/dLLow8.6-10.3The [facility] Physician GroupComment on above:Performed By: #### RENAL ####[id number] USAChloride [Moles/Vol]108 mmol/WUdfs29-471Aia [facility] Physician GroupComment on above:Performed By: #### RENAL ####[place] [address] USACO2 [Moles/Vol]26.8 mmol/GFopugo53.0-31.0The [facility] Physician GroupComment on above:Performed By: #### RENAL ####[place] [address] USACreatinine [Mass/Vol]1.96 mg/dLHigh0.70-1.30The [facility] Medical CenterComment on above: Performed By: #### RENAL ####[place] [address] USACreatinine Clr Calc Xeduhtww95.78NormalThe [facility] Medical CenterComment on above:Result Comment: PERFORMED BY: [facility] [address] [place] [address] PATHOLOGIST VICE PRESIDENT OF MARKETING KRISTEL LU M.D.Performed By: #### RENAL ####[place] [address] USAEstimated GFR33.511 mL/Min NormalThe [facility] Physician [facility] Medical CenterComment on above:Performed By: #### RENAL ####[id number] USAGlucose [Mass/Vol]108 mg/hQNxuo55-507Bfe [facility] CenterComment on above: Result Comment: Random Glucose Reference Range is dependent on time and content of last meal. Glucose of more than 200 mg/dL in a nonstressed, ambulatory subject supports the diagnosis of Diabetes Mellitus. ADA recommended reference rangePerformed By: #### RENAL ####[place] [address] USAPhosphate [Mass/Vol]3.5 mg/dL Normal2.5-4.5The [facility] Medical CenterComment on above:Performed By: #### RENAL ####[id number] [place] Potassium [Moles/Vol]4.2 mmol/LNormal3.5-5.1The [facility] Physician GroupComment on above:Performed By: #### RENAL ####[id number] USASodium [Moles/Vol]140 mmol/KHjixlt591-193Wxc [facility] Physician GroupComment on above:Performed By: #### RENAL ####[id number] USAUrea nitrogen [Mass/Vol]39 mg/dLHigh7-25The [facility] Physician GroupComment on above: Performed By: #### RENAL ####[id number] USAHemoglobin and Hematocriton 01-45-8373Uwxwgspzrr (Bld) [Volume fraction]23.3 %Low38.8-50.0The [facility] Physician GroupComment on above:Result Comment: PERFORMED BY: [address] [place] [id number] PATHOLOGIST VICE PRESIDENT OF [employer]ING KRISTEL LU M.D.Performed By: #### HH ####[id number] USAHemoglobin (Bld) [Mass/Vol]8.0 g/dLLow 13.0-17.0The [facility] Physician GroupComment on above:Performed By: #### HH ####[id number] USABasic Metabolic Panelon 27-24-6439Kwzvi gap [Moles/Vol]9.8 mmol/LNormal6.0-15.0The [facility] Physician GroupComment on above:Performed By: #### BMP ####[id number] USACalcium [Mass/Vol]8.2 mg/dLLow8.6-10.3The [facility] Physician GroupComment on above:Performed By: #### BMP ####[id number] USAChloride [Moles/Vol]105 mmol/PRhelfj88-994Nvo [facility] Comment on above:Performed By: #### BMP ####[address] [place] [address] USACO2 [Moles/Vol]28.4 mmol/UTjmtfe11.0-31.0The [facility] Physician GroupComment on above:Performed By: #### BMP ####[address] [place] [address] USACreatinine [Mass/Vol] 2.36 mg/dLHigh0.70-1.30The [facility] Physician GroupComment on above:Performed By: #### BMP ####[address] [place] [address] USACreatinine Clr Calc Xleumkld25.43NoAtrium Health [facility] Comment on above:Result Comment: PERFORMED BY: [facility] [address] [place] [place] [id number] PATHOLOGIST VICE PRESIDENT OF MARKETING KRISTEL LU M.D.Performed By: #### BMP ####[address] [address] USAEstimated GFR26.816 mL/MinNoAtrium Health Mercy Physician [facility] Of [facility] Medical CenterComment on above:Performed By: #### BMP ####[phone] USAGlucose [Mass/Vol]106 mg/qLPtfw51-376Ggg [facility] Physician GroupComment on above:Result Comment: Random Glucose Reference Range is dependent on time and content of last meal. Glucose of more than 200 mg/dL in a nonstressed, ambulatory subject supports the diagnosis of Diabetes Mellitus. ADA recommended reference rangePerformed By: #### BMP ####[address] [address] USAPotassium [Moles/Vol]4.2 mmol/LNormal3.5-5.1The [facility] Physician GroupComment on above:Performed By: #### BMP ####[address] [place] [address] USASodium [Moles/Vol]139 mmol/PHukbzi920-691Vls [facility] Physician GroupComment on above:Performed By: #### BMP ####[place] [address] USAUrea nitrogen [Mass/Vol]55 mg/dLHigh7-25The [facility] Physician GroupComment on above:Performed By: #### BMP ####[place] [address] USAHemogram CBC Without Diffon 49-78-1031Rheuyxynngu distribution width (RBC) [Ratio]14.7 %Normal 12.0-14.8The [facility] Physician GroupComment on above:Performed By: #### CBCNO ####[address] Hematocrit (Bld) [Volume fraction]21.9 %Low38.8-50.0The [facility] Physician GroupComment on above:Performed By: #### CBCNO ####[place] [address] USAHemoglobin (Bld) [Mass/Vol]7.5 g/dLLow 13.0-17.0The [facility] Physician GroupComment on above:Performed By: #### CBCNO ####[place] [address] USAMCH (RBC) [Entitic mass]32.5 qzQhebuz64.5-35.2The [facility] Physician GroupComment on above:Performed By: #### CBCNO ####[place] [address] USAMCV (RBC) [Entitic vol]94.4 eESxpbws39.5-101The [facility] Physician GroupComment on above:Performed By: #### CBCNO ####[place] [address] USAMean Corpuscular HGB Conc34.4 g/zXIazxrp36.5-35.6The [facility] Physician GroupComment on above: Performed By: #### CBCNO ####[place] [address] USAPlatelet mean volume (Bld) [Entitic vol]6.7 fLNormal 6.6-10.1The [facility] Physician GroupComment on above:Result Comment: PERFORMED BY: [place] [address] PATHOLOGIST VICE PRESIDENT OF MARKETING KRISTEL LU M.D.Performed By: #### CBCNO ####[place] [address] USAPlatelets (Bld) [#/Vol]350 10*3/rICgukcn441-995Awb [facility] Physician GroupComment on above:Performed By: #### CBCNO ####[place] [address] USARBC (Bld) [#/Vol]2.32 10*6/uLLow3.90-5.60[facility] Comment on above:Performed By: #### CBCNO ####[place] [address] USAWBC (Bld) [#/Vol]8.0 10*3/uLNormal4.1-10.5The [facility] Physician GroupComment on above:Performed By: #### CBCNO ####[place] [address] USABasic Metabolic Panelon 74-52-8265Wlebf gap [Moles/Vol]10.8 mmol/LNormal6.0-15.0The [facility] Physician GroupComment on above:Performed By: #### RENAL, CBC #### [place] [address] USACalcium [Mass/Vol]7.6 mg/dLLow8.6-10.3The [facility] Physician GroupComment on above:Performed By: #### RENAL, CBC #### [place] [address] USAChloride [Moles/Vol]104 mmol/MYpkwnr83-205Dri [facility] Physician GroupComment on above:Performed By: #### RENAL, CBC #### [place] [address] USACO2 [Moles/Vol]28.5 mmol/XBvahum68.0-31.0The [facility] Physician GroupComment on above:Performed By: #### RENAL, CBC #### [place] [address] USACreatinine [Mass/Vol]2.73 mg/dLHigh0.70-1.30The [facility] Physician GroupComment on above:Performed By: #### RENAL, CBC #### [place] [address] USACreatinine Clr Calc Thcujtwp33.47NoAtrium Health Mercy Physician GroupComment on above:Result Comment: PERFORMED BY: [place] [address] PATHOLOGIST VICE PRESIDENT OF MARKETING KRISTEL LU M.D.Performed By: #### RENAL, CBC #### [place] [address] USAEstimated GFR22.517 mL/MinNoAtrium Health Mercy Physician [facility] Medical CenterComment on above:Performed By: #### RENAL, CBC #### [place] [address] USAGlucose [Mass/Vol]107 mg/dZAdcp15-812Kmb [facility] Medical CenterComment on above:Result Comment: Random Glucose Reference Range is dependent on time and content of last meal. Glucose of more than 200 mg/dL in a nonstressed, ambulatory subject supports the diagnosis of Diabetes Mellitus. ADA recommended reference rangePerformed By: #### RENAL, CBC #### [place] [address] USAPotassium [Moles/Vol]4.3 mmol/LNormal3.5-5.1The [facility] Physician GroupComment on above:Performed By: #### RENAL, CBC #### [place] [address] USASodium [Moles/Vol]139 mmol/LMjgahe063-321Yah [facility] Physician GroupComment on above:Performed By: #### RENAL, CBC #### [place] [address] USAUrea nitrogen [Mass/Vol]64 mg/dLHigh7-25The [facility] Physician GroupComment on above:Performed By: #### RENAL, CBC #### [place] [address] USAHemogram CBC Without Diffon 04-68-6877Ywzfbxxgkgx distribution width (RBC) [Ratio]14.7 %Vipgay19.0-14.8The [facility] Physician GroupComment on above:Performed By: #### RENAL, CBC #### [place] [address] USAHematocrit (Bld) [Volume fraction]22.4 %Low38.8-50.0The [facility] Physician GroupComment on above:Performed By: #### RENAL, CBC #### [place] [address] USAHemoglobin (Bld) [Mass/Vol]7.9 g/dLLow13.0-17.0The [facility] Physician GroupComment on above:Performed By: #### RENAL, CBC #### [place] [address] USAMCH (RBC) [Entitic mass]32.9 biMofmow89.5-35.2The [facility] Physician GroupComment on above:Performed By: #### RENAL, CBC #### [place] [address] USAMCV (RBC) [Entitic vol]93.6 sRDcfveg95.5-101The [facility] Physician GroupComment on above:Performed By: #### RENAL, CBC #### [place] [address] USAMean Corpuscular HGB Conc35.2 g/gOHbnncr14.5-35.6The [facility] Physician GroupComment on above:Performed By: #### RENAL, CBC #### [place] [address] USAPlatelet mean volume (Bld) [Entitic vol]6.9 fLNormal 6.6-10.1The [facility] Physician GroupComment on above:Result Comment: PERFORMED BY: [address] [place] [address] PATHOLOGIST VICE PRESIDENT OF MARKETING KRISTEL LU M.D.Performed By: #### RENAL, CBC #### [facility] [address] [place] [address] USAPlatelets (Bld) [#/Vol]381 10*3/jYRvwglq054-233Ltw [facility] Physician GroupComment on above:Performed By: #### RENAL, CBC #### [facility] [address] [place] [address] USARBC (Bld) [#/Vol]2.39 10*6/uLLow3.90-5.60The [facility] Physician GroupComment on above:Performed By: #### RENAL, CBC #### [facility] [address] [place] [address] USAWBC (Bld) [#/Vol]9.3 10*3/uLNormal4.1-10.5The [facility] Physician GroupComment on above:Performed By: #### RENAL, CBC #### [facility] [address] [place] [address] USAAnisocytosis LM Ql (Bld)Ordered By: Brenda Driscoll on 11-16-1682Dnkdpzxurrch Ql (Bld)Anisocytosis [Presence] in Blood by Light microscopySumma Health Akron CampusBand form neutrophils/100 WBC Manual cnt (Bld)Ordered By: Brenda Driscoll on 35-57-4684Equi form neutrophils/100 WBC (Bld)Peripheral white blood cell differential % bands, microscopic exam0-5 [facility] CampusBasic Metabolic Panelon 15-97-1117Wlmrg gap [Moles/Vol]10.2 mmol/LNormal6.0-15.0The [facility] Physician GroupComment on above:Performed By: #### BMP, DIFF CBC ####[facility] [address] [place] [address] USACalcium [Mass/Vol]8.2 mg/dLLow8.6-10.3The [facility] Physician GroupComment on above:Performed By: #### BMP, DIFF CBC ####[address] [place] [id number] [place] Chloride [Moles/Vol]102 mmol/KHcxddd73-913Vzn [facility] Physician GroupComment on above:Performed By: #### BMP, DIFF CBC ####[place] [id number] USACO2 [Moles/Vol]30.1 mmol/ODesuna21.0-31.0The [facility] Physician GroupComment on above:Performed By: #### BMP, DIFF CBC ####[place] [id number] [place] Creatinine [Mass/Vol]2.84 mg/dLHigh0.70-1.30The [facility] Physician GroupComment on above:Performed By: #### BMP, DIFF CBC ####[place] [address] USACreatinine Clr Calc Lpyrgoje66.55 NormalThe [facility] Physician GroupComment on above:Result Comment: PERFORMED BY: [facility] [address] [place] [address] PATHOLOGIST VICE PRESIDENT OF MARKETING KRISTEL LU M.D.Performed By: #### BMP, DIFF CBC ####[place] [id number] USAEstimated GFR21.474 mL/MinNormalThe [facility] Medical CenterComment on above:Performed By: #### BMP, DIFF CBC ####[place] [id number] USAGlucose [Mass/Vol]110 mg/sCGsfs70-231Jra [facility] Comment on above:Result Comment: Random Glucose Reference Range is dependent on time and content of last meal. Glucose of more than 200 mg/dL in a nonstressed, ambulatory subject supports the diagnosis of Diabetes Mellitus. ADA recommended reference rangePerformed By: #### BMP, DIFF CBC ####[place] [id number] USAPotassium [Moles/Vol] 4.3 mmol/LNormal3.5-5.1The [facility] Physician GroupComment on above:Performed By: #### BMP, DIFF CBC ####[address] [place] [address] USASodium [Moles/Vol]138 mmol/FNbtfyv785-626Tlw [facility] Physician GroupComment on above:Performed By: #### BMP, DIFF CBC ####[address] [address] USAUrea nitrogen [Mass/Vol]76 mg/dLHigh7-25The [facility] Physician GroupComment on above:Performed By: #### BMP, DIFF CBC ####[address] [address] USADiff and CBCon 29-88-0814Koawvybuqkvz Ql (Bld) SlightNormalThe [facility]ona GroupComment on above:Performed By: #### BMP, DIFF CBC ####[address] [address] USABand form neutrophils/100 WBC (Bld)3 %Normal0-5The [facility] Physician GroupComment on above:Performed By: #### BMP, DIFF CBC ####[address] [address] USAEosinophils/100 WBC (Bld)1 % Normal1-3The [facility] Health Physician GroupComment on above:Performed By: #### BMP, DIFF CBC ####[address] [address] USAErythrocyte distribution width (RBC) [Ratio]14.8 %Rernul30.0-14.8The [facility] Health Physician GroupComment on above:Performed By: #### BMP, DIFF CBC ####[address] [address] [place] Hematocrit (Bld) [Volume fraction]23.4 %Low38.8-50.0The [facility] Health Physician GroupComment on above:Performed By: #### BMP, DIFF CBC ####[address] [address] USAHemoglobin (Bld) [Mass/Vol]8.0 g/dLLow13.0-17.0The [facility] Health Physician GroupComment on above:Performed By: #### BMP, DIFF CBC ####[address] [address] USALarge PlateletsSlightPhysicians Regional Medical Center - Pine Ridge Physician GroupComment on above:Result Comment: PERFORMED BY: [facility] [address] [place] [address] PATHOLOGIST VICE PRESIDENT OF MARKETING KRISTEL LU M.D.Performed By: #### BMP, DIFF CBC ####[place] [phone] USALymphocytes/100 WBC (Bld)10 %Vgi01-19Yfj [facility] Physician GroupComment on above:Performed By: #### BMP, DIFF CBC ####[place] [phone] [facility] (RBC) [Entitic mass]32.5 gzTmijhy77.5-35.2The [facility] Health Physician GroupComment on above:Performed By: #### BMP, DIFF CBC ####[address] (RBC) [Entitic vol]94.2 wRZsikpj01.5-101The [facility] Physician GroupComment on above:Performed By: #### BMP, DIFF CBC ####[place] [phone] USAMean Corpuscular HGB Conc34.5 g/lJLsvimd19.5-35.6The [facility] Physician GroupComment on above:Performed By: #### BMP, DIFF CBC ####[place] [phone] [place] Metamyelocytes1 %High0-0The [facility] Health Physician GroupComment on above:Performed By: #### BMP, DIFF CBC ####[place] [phone] USAMicrocytosisSAtrium Health Stanly Physician GroupComment on above:Performed By: #### BMP, DIFF CBC ####[place] [phone] USAMonocytes/100 WBC (Bld)4 % Normal2-11The [place] Physician GroupComment on above:Performed By: #### BMP, DIFF CBC ####[address] [address] USAOvalocytesSAtrium Health Stanly Physician GroupComment on above:Performed By: #### BMP, DIFF CBC ####[address] [address] USAPlatelet EstimateNormalNormalNoAtrium Health Mercy Physician GroupComment on above:Performed By: #### BMP, DIFF CBC ####[address] [address] USAPlatelet mean volume (Bld) [Entitic vol]7.1 fLNormal6.6-10.1The [facility] Physician GroupComment on above:Performed By: #### BMP, DIFF CBC ####[address] [address] USAPlatelet MorphologyNormalNormJackson Memorial Hospital Physician GroupComment on above:Performed By: #### BMP, DIFF CBC ####[address] [address] [place] Platelets (Bld) [#/Vol]374 10*3/nBPvrqef375-972Ked [facility] Comment on above:Performed By: #### BMP, DIFF CBC ####[address] [address] USAPoikilocytosisSlightPhysicians Regional Medical Center - Pine Ridge Physician GroupComment on above:Performed By: #### BMP, DIFF CBC ####[address] [address] USARBC (Bld) [#/Vol]2.48 10*6/uLLow3.90-5.60The [facility] Health Physician GroupComment on above:Performed By: #### BMP, DIFF CBC ####[address] [address] USASegmented neutrophils/100 WBC (Bld)82 %High 50-70The [facility] Health Physician GroupComment on above:Performed By: #### BMP, DIFF CBC ####[facility] [address] [place] [address] USAWBC (Bld) [#/Vol]9.8 10*3/uLNormal4.1-10.5The [facility] Health Physician GroupComment on above:Performed By: #### BMP, DIFF CBC ####[facility] [address] [place] [address] USAEosinophils/100 WBC Manual cnt (Bld)Ordered By: Brenda Driscoll on 85-90-5207Onmblzilkql/100 WBC (Bld)Eosinophils/100 leukocytes in Blood by Manual count1-3FC[facility] Erythrocyte morphology finding [Identifier] in BloodOrdered By: Brenda Driscoll on 87-47-1461LAL morphology finding Nom (Bld)RBC morphologySumma Health Akron CampusLymphocytes/100 WBC Manual cnt (Bld)Ordered By: Brenda Driscoll on 90-08-3574Dqtfzxtkavx/100 WBC (Bld)Lymphocytes/100 leukocytes in Blood by Manual kollmDcx89-46MxthwudctSumma Health Akron CampusMetamyelocytes/100 WBC Manual cnt (Bld)Ordered By: Brenda Driscoll on 73-63-9134Ihzqsgkfeewcaj/100 WBC (Bld)Metamyelocytes/100 leukocytes in Blood by Manual countHigh0-0Summa Health Akron CampusMicrocytes LM Ql (Bld)Ordered By: Brenda Driscoll on 65-57-5281Wxybyiwonl Ql (Bld)Microcytes [Presence] in Blood by Light microscopy [facility] CampusMonocytes/100 WBC Manual cnt (Bld)Ordered By: Brenda Driscoll on 81-26-0569Ursuqrvgo/100 WBC (Bld)Monocytes/100 leukocytes in Blood by Manual count2-11Summa Health Akron CampusOvalocytes [Presence] in Blood by Light microscopyOrdered By: Brenda Driscoll on 01-04-2025 Ovalocytes LM Ql (Bld)Ovalocyte detectionSumma Health Akron Campus Platelet adequacy [Presence] in Blood by Light microscopyOrdered By: Brenda Driscoll on 79-72-6890Bmgcrqgdj LM Ql (Bld)Platelet adequacy [Presence] in Blood by Light microscopyNormOhioHealth Hardin Memorial HospitalPlatelet morphology finding [Identifier] in BloodOrdered By: Brenda Driscoll on 52-01-8935Hcsntlww morphology finding Nom (Bld)Platelet morphology finding [Identifier] in BloodNoSumma HealthPlatelets Large [Presence] in Blood by Light microscopyOrdered By: Brenda Driscoll on 84-58-8820Bvoyplznl Large LM Ql (Bld)Platelets Large [Presence] in Blood by Light microscopySumma Health Akron CampusPoikilocytosis [Presence] in Blood by Light microscopyOrdered By: Brenda Driscoll on 01-04-2025 Poikilocytosis LM Ql (Bld)Poikilocytosis [Presence] in Blood by Light microscopy [facility] Northegmented neutrophils/100 WBC Manual cnt (Bld) Ordered By: Brenda Driscoll on 53-81-1028Kodfwrkrt neutrophils/100 WBC (Bld) Manual blood segmented neutrophils/100 thrnxvonnkUxti12-60AtbovolmnSumma Health Akron CampusBasic Metabolic Panelon 94-42-8266Wowhg gap [Moles/Vol]11.5 mmol/L Normal6.0-15.0The [facility] Health Physician GroupComment on above:Performed By: #### KOLBY, CBCNO ####[facility] [place] [address] USACalcium [Mass/Vol]8.0 mg/dLLow8.6-10.3The [facility] Health Physician GroupComment on above:Performed By: #### BMP, CBCNO ####[facility] [place], [place] [address]SPJUpnjnivm [Moles/Vol]98 mmol/YPwwlwd22-501Gbo [facility] GroupComment on above:Performed By: #### BMP, CBCNO ####[facility] [address] [place], [place] [address]QHDSX7 [Moles/Vol]29.8 mmol/IZpwdpv06.0-31.0The [facility] GroupComment on above:Performed By: #### BMP, CBCNO ####[facility] [address] [place], [place] [address]UZSZrdwgvhfjw [Mass/Vol]3.16 mg/dLSignificant change up 0.70-1.30The [facility] Physician GroupComment on above:Performed By: #### KOLBY CBCNO ####[facility] [place], [place] [address]QDD Creatinine Clr Calc Dfzytczq76.34NormalThe [facility] Health Physician GroupComment on above:Result Comment: PERFORMED BY: [facility] [address] [place] [address] PATHOLOGIST VICE PRESIDENT OF MARKETING KRISTEL LU M.D.Performed By: #### KOLBY CBCNO ####[facility] [facility] [place], [place] [address]ZZAKpwkqefhs GFR18.892 mL/Min NormalThe [facility] Health Physician GroupComment on above:Performed By: #### KOLBY CBCNO ####[facility] [facility] [place], [place] [address]UIU Glucose [Mass/Vol]118 mg/iBOkoh76-405Rrk [facility] Physician GroupComment on above:Result Comment: Random Glucose Reference Range is dependent on time and content of last meal. Glucose of more than 200 mg/dL in a nonstressed, ambulatory subject supports the diagnosis of Diabetes Mellitus. ADA recommended reference rangePerformed By: #### KOLBY CBCNO ####[place] [address] [facility] CenterivaPALMD[place], [place] [address]JUCMmlkwmciz [Moles/Vol] 4.3 mmol/LNormal3.5-5.1The [facility] Health Physician GroupComment on above:Performed By: #### KOLBY CBCNO ####[place] [address] [place], [place] [address]QFPMqopcm [Moles/Vol]135 mmol/YFue974-403Frp [facility] Comment on above:Performed By: #### KOLBY CBCNO ####[place] [address] [facility] Centeriva[place], [place] [address]QHBHhpe nitrogen [Mass/Vol]91 mg/dLHigh 7-25The [facility] Physician GroupComment on above:Performed By: #### KOLBY, CBCNO ####[place] [address] [facility] Hospit[place], [place] [address]YOHMvxnbdxl CBC Without Diffon 13-56-1135Gypjfewtkvl distribution width (RBC) [Ratio]14.9 % High12.0-14.8The [facility] Health Physician GroupComment on above:Performed By: #### KOLBY, CBCNO ####[address] [address] USAHematocrit (Bld) [Volume fraction]22.0 %Low38.8-50.0The [facility] Health Physician GroupComment on above:Performed By: #### BMP, CBCNO ####[address] [address]RYJZkbdqibsmb (Bld) [Mass/Vol]7.7 g/dLLow13.0-17.0The [facility] Physician GroupComment on above:Performed By: #### KOLBY, CBCNO ####[address] [address]HKVVOV (RBC) [Entitic mass]32.6 rdJtslcb81.5-35.2The [facility] Health Physician GroupComment on above:Performed By: #### KOLBY, CBCNO ####[address] [address]FVEKWX (RBC) [Entitic vol]93.0 fL Axmgrk25.5-101The [facility] Health Physician GroupComment on above:Performed By: #### KOLBY, CBCNO ####[address] [address] USAMean Corpuscular HGB Conc35.0 g/bICoxrye86.5-35.6The [facility] Physician GroupComment on above:Performed By: #### KOLBY, CBCNO ####[address] [address]JRMDjrhtpjp mean volume (Bld) [Entitic vol]7.4 fLNormal6.6-10.1The [facility] Health Physician GroupComment on above: Result Comment: PERFORMED BY: [address] [place] [address] PATHOLOGIST VICE PRESIDENT OF MARKETING KRISTEL LU M.D.Performed By: #### KOLBY, CBCNO ####[address], [place] [address]ITIIzdgaevzk (Bld) [#/Vol]345 10*3/yKEorjwk235-614Lzw [facility] Physician GroupComment on above:Performed By: #### BMP, CBCNO ####[place] [address] [place], [place] [address]WDPBZT (Bld) [#/Vol]2.37 10*6/uLLow3.90-5.60The [facility] Comment on above:Performed By: #### BMP, CBCNO ####[place] [address] [place], [place] [address]WKKXZN (Bld) [#/Vol]10.0 10*3/uLNormal 4.1-10.5The [facility] Physician GroupComment on above:Performed By: #### BMP, CBCNO ####[address] [address]PVU Fecal occult blood detection by immunochemistryOrdered By: Winsome Goff on 78-73-9886Kzocupyxae.gastrointestinal Ql (Stl)Fecal occult blood detection by immunochemistrySumma Health Akron CampusHemogram CBC Without Diffon 79-73-2378Yorrzakrllp distribution width (RBC) [Ratio]14.6 %Aqmnnw85.0-14.8The [facility] Physician GroupComment on above:Performed By: #### CBCNO, RENAL ####[place] [address] [place] [address] [place] Hematocrit (Bld) [Volume fraction]22.2 %Low38.8-50.0The [facility] Physician GroupComment on above:Performed By: #### CBCNO, RENAL ####[place] [address] [place] [address] USAHemoglobin (Bld) [Mass/Vol]7.5 g/dLLow13.0-17.0The [facility] Health Physician GroupComment on above:Performed By: #### CBCNO, RENAL ####[address] [address] USAMCH (RBC) [Entitic mass]31.9 sxZfoxtg85.5-35.2The [facility] Physician GroupComment on above:Performed By: #### CBCNO, RENAL ####[place] [address] USAMCV (RBC) [Entitic vol]94.0 kIAoxomc02.5-101The [facility] Physician GroupComment on above:Performed By: #### CBCNO, RENAL ####[place] [phone] USAMean Corpuscular HGB Conc33.9 g/lCEtnqqs60.5-35.6The [facility] Physician GroupComment on above:Performed By: #### CBCNO, RENAL ####[place] [address] [place] Platelet mean volume (Bld) [Entitic vol]7.5 fLNormal6.6-10.1The [facility] Health Physician GroupComment on above:Result Comment: PERFORMED BY: [place] [address] PATHOLOGIST VICE PRESIDENT OF MARKETING KRISTEL LU M.D.Performed By: #### CBCNO, RENAL ####[place] [address] USAPlatelets (Bld) [#/Vol]332 10*3/bBRrrnvh168-821Fqq [facility] Physician GroupComment on above: Performed By: #### CBCNO, RENAL ####[place] [phone] USARBC (Bld) [#/Vol]2.36 10*6/uLLow3.90-5.60The [facility] Physician GroupComment on above:Performed By: #### CBCNO, RENAL ####[place] [address] USAWBC (Bld) [#/Vol]11.7 10*3/uLHigh4.1-10.5The [facility] Physician GroupComment on above:Performed By: #### CBCNO, RENAL ####[place] [phone] USARenal Function Panelon 72-33-1789Dfyjpif [Mass/Vol]2.8 g/dLLow3.5-5.7The [facility] Physician GroupComment on above: Performed By: #### JACQUI, RENAL ####[place] [address] [place] [address]2470 USAAnion gap [Moles/Vol]11.2 mmol/LNormal6.0-15.0The [facility] Medical CenterComment on above:Performed By: #### JACQUI, RENAL ####[place] [phone] USACalcium [Mass/Vol]8.4 mg/dLLow8.6-10.3The [facility] Medical CenterComment on above: Performed By: #### JACQUI, RENAL ####[place] [phone] USAChloride [Moles/Vol]96 mmol/BXln13-576Rgb [facility] Medical CenterComment on above:Performed By: #### JACQUI, RENAL ####[place] [phone] USACO2 [Moles/Vol]30.4 mmol/WYpyxec02.0-31.0The [facility] Medical CenterComment on above:Performed By: #### JACQUI, RENAL ####[place] [phone] USACreatinine [Mass/Vol]3.67 mg/dLHigh0.70-1.30The [facility] Medical CenterComment on above:Performed By: #### JACQUI, RENAL ####[place] [phone] USACreatinine Clr Calc Pharmacy 18.42NormKettering Health Behavioral Medical Centere Guthrie ClinicComment on above:Result Comment: PERFORMED BY: [facility] [address] [place] [id number] PATHOLOGIST VICE PRESIDENT OF MARKETING KRISTEL LU M.D.Performed By: #### JACQUI, RENAL ####[place] [phone] USAEstimated GFR15.787 mL/MinNoLakeHealth Beachwood Medical Centere [facility] Physician GroupComment on above:Performed By: #### JACQUI, RENAL ####[place] [address] [place] [address] USAGlucose [Mass/Vol]107 mg/wYXxgw99-596Bjh [facility] Comment on above:Result Comment: Random Glucose Reference Range is dependent on time and content of last meal. Glucose of more than 200 mg/dL in a nonstressed, ambulatory subject supports the diagnosis of Diabetes Mellitus. ADA recommended reference rangePerformed By: #### JACQUI, RENAL ####[place] [address] [place] [address] USAPhosphate [Mass/Vol] 4.2 mg/dLNormal2.5-4.5The [facility] Physician GroupComment on above:Performed By: #### JACQUI, RENAL ####[address] [address] USAPotassium [Moles/Vol]4.6 mmol/LNormal3.5-5.1The [facility] Physician GroupComment on above:Performed By: #### JACQUI, RENAL ####[address] [address] USASodium [Moles/Vol]133 mmol/LEbl831-760Vfh [facility] Physician GroupComment on above: Performed By: #### JACQUI, RENAL ####[address] [address] USAUrea nitrogen [Mass/Vol]90 mg/dLHigh7-25The [facility] Physician GroupComment on above:Performed By: #### JACQUI, RENAL ####[address] [address] USAStool Occult Blood (Immuno)on 37-37-2198Wfvoq Occult Blood (Immuno)Occult Blood (Immuno) Positive for Occult Blood by Immunochemical Methodology Reference range = Negative PERFORMED BY: [place] [id number] PATHOLOGIST VICE PRESIDENT OF MARKETING KRISTEL LU M.D.NormalThe [facility] Physician GroupComment on above: Performed By: #### OB(IMMUNO) ####[address] [address]CUUPbhsjsvkob and Hematocriton 53-92-6060Spcifagqig (Bld) [Volume fraction]23.8 %Low38.8-50.0The [facility] Physician GroupComment on above:Result Comment: PERFORMED BY: [address] [address] PATHOLOGIST VICE PRESIDENT OF MARKETING KRISTEL LU M.D.Performed By: #### HH ####[address] [address] USAHemoglobin (Bld) [Mass/Vol]8.3 g/dLLow 13.0-17.0The [facility] Physician GroupComment on above:Performed By: #### HH ####[address] [address] USADiff and CBCon 28-43-3499Iwlmyvthnbng Ql (Bld)SlightNormalThe [facility] Health Physician GroupComment on above:Performed By: #### DIFF CBC ####[address] [address] USAEosinophils/100 WBC (Bld)3 %Normal1-3 The [facility] Physician GroupComment on above:Performed By: #### DIFF CBC ####[address] [address] [place] Erythrocyte distribution width (RBC) [Ratio]15.0 %High12.0-14.8The [facility] Physician GroupComment on above:Performed By: #### DIFF CBC ####[address] [address] USAHematocrit (Bld) [Volume fraction]22.5 %Low38.8-50.0The [facility] Physician GroupComment on above:Performed By: #### DIFF CBC ####[place] [address] USAHemoglobin (Bld) [Mass/Vol]7.6 g/dLLow13.0-17.0The [facility] Physician GroupComment on above:Performed By: #### DIFF CBC ####[place] [phone] [place] Lymphocytes/100 WBC (Bld)7 %Hhw36-60Whe [facility] Physician GroupComment on above:Performed By: #### DIFF CBC ####[place] [phone] [facility] HOSPITALMCH (RBC) [Entitic mass]31.6 sxMosdvd19.5-35.2The [facility] Physician GroupComment on above:Performed By: #### DIFF CBC ####[address]V (RBC) [Entitic vol]92.9 bXPulvak54.5-101The [facility] Physician GroupComment on above:Performed By: #### DIFF CBC ####[place] [address] USAMean Corpuscular HGB Conc34.0 g/mNZfoojl97.5-35.6The [facility] Physician GroupComment on above:Performed By: #### DIFF CBC ####[place] [address] [place] Metamyelocytes2 %High0-0The [facility] Physician GroupComment on above:Performed By: #### DIFF CBC ####[place] [phone] USAMonocytes/100 WBC (Bld)2 %Normal2-11The [facility] Comment on above:Performed By: #### DIFF CBC ####[place] [phone] USAMyelocytes1 %High0-0The [facility] Physician GroupComment on above:Performed By: #### DIFF CBC ####[place] [phone] USAPlatelet Estimate NormalNormalNormalThe [facility] Physician GroupComment on above:Result Comment: PERFORMED BY: [facility] [address] [place] [address] PATHOLOGIST VICE PRESIDENT OF MARKETING KRISTEL LU M.D.Performed By: #### DIFF CBC ####[address] [address] USAPlatelet mean volume (Bld) [Entitic vol]7.4 fLNormal6.6-10.1The [facility] Physician GroupComment on above: Performed By: #### DIFF CBC ####[place] [phone] USAPlatelet MorphologyNormalNormalNormalThe [facility] Physician GroupComment on above:Result Comment: PERFORMED BY: [facility] [address] [place] [address] PATHOLOGIST VICE PRESIDENT OF MARKETING KRISTEL LU M.D.Performed By: #### DIFF CBC ####[place] [phone] USAPlatelets (Bld) [#/Vol]299 10*3/hVBleasy540-048Ahf [facility] Physician GroupComment on above:Performed By: #### DIFF CBC ####[address] [address] USARBC (Bld) [#/Vol]2.42 10*6/uLLow3.90-5.60The [facility] Comment on above:Performed By: #### DIFF CBC ####[address] [address] USASegmented neutrophils/100 WBC (Bld)86 %Wzul07-20Daa [facility] Physician GroupComment on above:Performed By: #### DIFF CBC ####[place] [phone] USAWBC (Bld) [#/Vol]8.8 10*3/uLNormal4.1-10.5The [facility] Physician GroupComment on above:Performed By: #### DIFF CBC ####[address] [address] USALeukoReduced RBCon 09-77-1957ElsyqRyqurli RBCNOT AVAILABLENoAtrium Health Mercy Physician [facility] Medical CenterMyelocytes/100 WBC Manual cnt (Bld) Ordered By: Sotero Black on 68-57-5787Ijqdobmefk/100 WBC (Bld)Myelocytes/100 leukocytes in Blood by Manual countHigh0-0Sum[facility] Health Akron CampusRenal Function Panelon 47-51-6704Ybrcski [Mass/Vol]3.0 g/dLLow3.5-5.7The [facility] Physician GroupComment on above:Performed By: #### RENAL ####[place] [address] [place] [address] USAAnion gap [Moles/Vol]11.4 mmol/LNormal6.0-15.0The [facility] Physician GroupComment on above:Performed By: #### RENAL ####[address] [address] USACalcium [Mass/Vol]8.7 mg/dLNormal8.6-10.3The [facility] Comment on above:Performed By: #### RENAL ####[address] [address] USAChloride [Moles/Vol]95 mmol/TPpl19-522Owy [facility] Medical CenterComment on above:Performed By: #### RENAL ####[address] [address] USACO2 [Moles/Vol]32.6 mmol/LHigh21.0-31.0The [facility] Physician GroupComment on above:Performed By: #### RENAL ####[address] [address] USACreatinine [Mass/Vol]3.24 mg/dLHigh0.70-1.30The [facility] Comment on above:Performed By: #### RENAL ####[address] [address] USACreatinine Clr Calc Iddkvdyh15.85NormKettering Health Behavioral Medical Centere [facility] Physician GroupComment on above:Result Comment: PERFORMED BY: [facility] [address] [place] [place] [id number] PATHOLOGIST VICE PRESIDENT OF MARKETING KRISTEL LU M.D.Performed By: #### RENAL ####[place] [phone] USAEstimated GFR18.334 mL/Min NormalThe [facility] Physician GroupComment on above:Performed By: #### RENAL ####[place] [phone] USAGlucose [Mass/Vol]120 mg/dJZycg32-365Fqw [facility] Physician GroupComment on above: Result Comment: Random Glucose Reference Range is dependent on time and content of last meal. Glucose of more than 200 mg/dL in a nonstressed, ambulatory subject supports the diagnosis of Diabetes Mellitus. ADA recommended reference rangePerformed By: #### RENAL ####[place] [address] USAPhosphate [Mass/Vol]4.3 mg/dL Normal2.5-4.5The [facility] Physician GroupComment on above:Performed By: #### RENAL ####[address] Potassium [Moles/Vol]4.0 mmol/LNormal3.5-5.1The [facility] Physician GroupComment on above:Performed By: #### RENAL ####[place] [phone] USASodium [Moles/Vol]135 mmol/CDvc288-895Qkc [facility] Physician GroupComment on above:Performed By: #### RENAL ####[place] [phone] USAUrea nitrogen [Mass/Vol]94 mg/dLHigh7-25The [facility] Physician GroupComment on above:Performed By: #### RENAL ####[place] [phone] [facility] Type and Screenon 99-24-2847LDJ and Rh group Nom (Bld)Blood group O Rh(D) positiveNormalThe [facility] Physician GroupComment on above:Order Comment: Transfuse now? Y Number of units to transfuse now? 2 Transfuse now? Y Number of units to transfuse now? 1 Transfuse now? Y Number of units to transfuse now? 1 Transfuse now? Y Number of units to transfuse now? 1Basic Metabolic Panelon 26-36-9952Jqved gap [Moles/Vol]11.8 mmol/LNormal6.0-15.0[facility] Physician GroupComment on above:Performed By: #### BMP, URIC ####[address] [address] USACalcium [Mass/Vol]9.1 mg/dLNormal8.6-10.3The [facility] Physician GroupComment on above:Performed By: #### BMP, URIC ####[address] [address] [place] Chloride [Moles/Vol]93 mmol/GBzu74-455Xzg [facility] Physician GroupComment on above:Performed By: #### BMP, URIC ####[place] [phone] USACO2 [Moles/Vol]35.5 mmol/LHigh21.0-31.0The [facility] Physician GroupComment on above:Performed By: #### BMP, URIC ####[address] [address] USACreatinine [Mass/Vol] 3.21 mg/dLHigh0.70-1.30The [facility] Physician GroupComment on above:Performed By: #### BMP, URIC ####[address] [address] USACreatinine Clr Calc Tqjmqcqh03.04NoAtrium Health Mercy Physician Group Comment on above:Performed By: #### BMP, URIC ####[address] [address] USAEstimated GFR18.539 mL/MinNoAtrium Health Mercy Physician GroupComment on above:Performed By: #### BMP, URIC ####[address] [address] USAGlucose [Mass/Vol]123 mg/jGQlvx86-817Rjh [facility] Physician GroupComment on above: Result Comment: Random Glucose Reference Range is dependent on time and content of last meal. Glucose of more than 200 mg/dL in a nonstressed, ambulatory subject supports the diagnosis of Diabetes Mellitus. ADA recommended reference rangePerformed By: #### BMP, URIC ####[address] [address] USAPotassium [Moles/Vol] 4.3 mmol/LNormal3.5-5.1The [facility] Physician GroupComment on above:Performed By: #### BMP, URIC ####[address] [address] USASodium [Moles/Vol]136 mmol/QLtqqlc432-609Ayx [facility] Health Physician GroupComment on above:Performed By: #### BMP, URIC ####[address] [address] USAUrea nitrogen [Mass/Vol]94 mg/dLHigh7-25The [facility] Health Physician GroupComment on above:Performed By: #### BMP, URIC ####[address] [address] USABasophils/100 WBC Manual cnt (Bld)Ordered By: Zoie Field on 50-24-0615Poyhkgfgb/100 WBC (Bld)Basophils/100 leukocytes in Blood by Manual count0-2FUniversity Hospitals Health System and CBCon 57-66-5316Ljhtkctxvncg Ql (Bld)SlightNormalThe Randolph Health Physician GroupComment on above:Performed By: #### DIFF CBC ####[address] [address] USABasophils/100 WBC (Bld)1 %Normal0-2The [facility] Health Physician GroupComment on above:Performed By: #### DIFF CBC ####[address] [address] USAErythrocyte distribution width (RBC) [Ratio] 15.5 %High12.0-14.8The [facility] Health Physician GroupComment on above:Performed By: #### DIFF CBC ####[address] [address] USAHematocrit (Bld) [Volume fraction]22.5 %Low38.8-50.0The [facility] Health Physician GroupComment on above:Performed By: #### DIFF CBC ####[place] [address] USAHemoglobin (Bld) [Mass/Vol]7.7 g/dLLow13.0-17.0The [facility] Health Physician GroupComment on above: Performed By: #### DIFF CBC ####[place] [phone] USAHypochromasiaSlightNormalThe Randolph Health Physician GroupComment on above:Performed By: #### DIFF CBC ####[place] [phone] USALymphocytes/100 WBC (Bld)9 %Udn79-64 The [facility] Health Physician GroupComment on above:Performed By: #### DIFF CBC ####[place] [address] USAMCH (RBC) [Entitic mass]32.4 zfGxgjns38.5-35.2The [facility] Health Physician GroupComment on above:Performed By: #### DIFF CBC ####[place] [address] USAMCV (RBC) [Entitic vol]94.0 qDVfncxc18.5-101 The [facility] Health Physician GroupComment on above:Performed By: #### DIFF CBC ####[place] [address] USAMean Corpuscular HGB Conc34.4 g/hWZniwpd43.5-35.6The [facility] Health Physician GroupComment on above:Performed By: #### DIFF CBC ####[place] [phone] USAMetamyelocytes1 %High0-0The [facility] Health Physician GroupComment on above:Performed By: #### DIFF CBC ####[place] [phone] USAMonocytes/100 WBC (Bld)6 %Normal2-11The [facility] Health Physician GroupComment on above:Performed By: #### DIFF CBC ####[address] [address] USAMyelocytes4 %High0-0The [facility] Health Physician GroupComment on above: Performed By: #### DIFF CBC ####[address] [address] USAPlatelet EstimateNormalNormalNormJay Hospital Physician GroupComment on above:Performed By: #### DIFF CBC ####[address] [address] USAPlatelet mean volume (Bld) [Entitic vol]7.6 fLNormal6.6-10.1The [facility] Health Physician GroupComment on above:Performed By: #### DIFF CBC ####[address] [address] USAPlatelet MorphologyNormalNormalNormJay Hospital Physician GroupComment on above:Result Comment: PERFORMED BY: [facility] [address] [place] [address] PATHOLOGIST VICE PRESIDENT OF MARKETING KRISTEL LU M.D.Performed By: #### DIFF CBC ####[address] [address] USAPlatelets (Bld) [#/Vol]241 10*3/kJCnhgac943-781Aun [facility] Health Physician GroupComment on above:Performed By: #### DIFF CBC ####[address] [address] USAPolychromasiaSlightNoAtrium Health Mercy Physician GroupComment on above: Performed By: #### DIFF CBC ####[address] [address] USARBC (Bld) [#/Vol]2.39 10*6/uLLow3.90-5.60The [facility] Health Physician GroupComment on above:Performed By: #### DIFF CBC ####[address] [address] [place] Segmented neutrophils/100 WBC (Bld)80 %Jdkp80-51Ozc [facility] Comment on above:Performed By: #### DIFF CBC ####[facility] U[address] [place] [address] USAWBC (Bld) [#/Vol]8.8 10*3/uLNormal 4.1-10.5The [facility] Health Physician GroupComment on above:Performed By: #### DIFF CBC ####[facility] [address] [place] [id number] [facility] Hypochromia LM Ql (Bld)Ordered By: Zoie Field on 55-68-5539Tcexblpypai Ql (Bld)Hypochromia [Presence] in Blood by Light microscopySumma Health Akron CampusPolychromasia [Presence] in Blood by Light microscopyOrdered By: Zoie Field on 96-35-4587Wibsxvjlyiwmo LM Ql (Bld)Polychromasia [Presence] in Blood by Light microscopySumma Health Akron CampusUS venous duplex LE BIon 30-91-3620TP venous duplex LE [facility] [address] Ultrasound Report Signed Patient: Delano Oliver MR#: [id number] [birth year] : 1940 Acct:[id number] Age/Sex: 84 / M ADM Date: 12/27/24 Loc: Room: [address] [place] [address] Type: ADM IN Attending Dr: Sotero Black [...] Dominik Lugo M.D.12/30/2024 12:28 PM Dictation Location: [place] [address] Tech: Cayla Rodriguez Transcribed By: CALI 12/30/24 1228 Dictated By: Dominik Lugo MD 12/30/24 1226 Signed By: 12/30/24 1228NoAtrium Health Mercy Physician GroupUrate [Mass/volume] in Serum or PlasmaOrdered By: Zoie Field on 40-05-9070Cdthk [Mass/Vol]Urate [Mass/volume] in Serum or PlasmaHigh4.4-7.6FCleveland Clinic Union HospitalUric Acidon 78-01-4555Acxlv [Mass/Vol]10.6 mg/dLHigh4.4-7.6The [facility] Health Physician GroupComment on above:Result Comment: PERFORMED BY: [place] [address] PATHOLOGIST VICE PRESIDENT OF MARKETING KRISTEL LU M.D.Performed By: #### BMP, URIC ####[facility] [address]bl[address] [place] [phone] USAX-ray reportOrdered By: Sotero Scott on 39-12-8178Mhrmc reportSumma Health Akron CampusXR hip RT min 2V(w/wo pelvis)*on 13-62-3715MX hip RT min 2V(w/wo pelvis)*[facility] [place] [address] XRay Report Signed Patient: Delano Oliver MR#: [id number] [birth year] : 1940 Acct:[id number] Age/Sex: 84 / M ADM Date: 12/27/24 Loc: Room: [address] [place] [address] Type: ADM IN Attending Dr: Sotero Black [...] Scott Jr., D.O.12/30/2024 1:24 PM Dictation Location: RADIO-PC-22 Transcribed By: CALI 12/30/24 1324 Dictated By: Sotero Scott Jr, DO 12/30/24 1323 Signed By: 12/30/24 1324[facility], RochesterAlanine aminotransferase [Enzymatic activity/volume] in Serum or PlasmaOrdered By: Sotero Black on 70-99-7608EGT [Catalytic activity/Vol]Alanine aminotransferase [Enzymatic activity/volume] in Serum or Plasma7-52Summa Health Akron CampusAlkaline phosphatase [Enzymatic activity/volume] in Serum or PlasmaOrdered By: Sotero Black on 17-53-3009ZCV [Catalytic activity/Vol]Alkaline phosphatase [Enzymatic activity/volume] in Serum or Ccszqb94-074PygjlgdfeSumma Health Akron Campus Aspartate aminotransferase [Enzymatic activity/volume] in Serum or PlasmaOrdered By: Sotero Black on 11-98-4427CMA [Catalytic activity/Vol]Aspartate aminotransferase [Enzymatic activity/volume] in Serum or Flyacy21-65MqerlrlvzSumma Health Akron CampusBilirubin.total [Mass/volume] in Serum or PlasmaOrdered By: Sotero Black on 09-18-5619Ivaawqssb [Mass/Vol]Bilirubin.total [Mass/volume] in Serum or Plasma0.3-1.0Sum[facility] Health Akron CampusComprehensive Metabolic Panelon 71-43-9626Bsjfsgy [Mass/Vol]3.1 g/dLLow3.5-5.7The [facility]ician [facility] Medical CenterComment on above:Performed By: #### PAB, CMP, DIFF CBC ####[facility] [address] [place] [address] [facility] Albumin/Globulin [Mass ratio]1.1 {ratio}NormalThe [facility] Physician [facility] Comment on above:Performed By: #### PAB, CMP, DIFF CBC ####[facility] Tma[address] [place] [address] USAALP [Catalytic activity/Vol]63 U/ZUjmrya21-688Tqf [facility] Health Physician GroupComment on above:Performed By: #### PAB, CMP, DIFF CBC ####[address] [address] USAALT [Catalytic activity/Vol]10 U/LNormal7-52The [facility] Health Physician GroupComment on above:Performed By: #### PAB, CMP, DIFF CBC ####[place] [address] USAAnion gap [Moles/Vol] 10.2 mmol/LNormal6.0-15.0The [facility] Health Physician GroupComment on above:Performed By: #### PAB, CMP, DIFF CBC ####[place] [address] USAAST [Catalytic activity/Vol]33 U/MPccykx49-17Gkx [facility] Health Physician GroupComment on above:Performed By: #### PAB, CMP, DIFF CBC ####[place] [phone] [place] Bilirubin [Mass/Vol]0.7 mg/dLNormal0.3-1.0The [facility] Health Physician GroupComment on above:Performed By: #### PAB, CMP, DIFF CBC ####[place] [address] USACalcium [Mass/Vol]9.8 mg/dLNormal 8.6-10.3The [facility] Health Physician GroupComment on above:Performed By: #### PAB, CMP, DIFF CBC ####[place] [address] USAChloride [Moles/Vol]94 mmol/YDve93-871Rym [facility] Comment on above:Performed By: #### PAB, CMP, DIFF CBC ####[place] [phone] USACO2 [Moles/Vol]36.7 mmol/LHigh 21.0-31.0The [facility] Health Physician GroupComment on above:Performed By: #### PAB, CMP, DIFF CBC ####[address] [place] [address] USACreatinine [Mass/Vol]2.96 mg/dLHigh0.70-1.30The [facility] Health Physician GroupComment on above:Performed By: #### PAB, CMP, DIFF CBC ####[place] [address] USACreatinine Clr Calc Ffcjighd30.60NoAtrium Health Mercy Physician GroupComment on above:Performed By: #### PAB, CMP, DIFF CBC ####[place] [address] USAEstimated GFR20.434 mL/MinNoAtrium Health Mercy Physician [facility] Medical CenterComment on above:Performed By: #### PAB, CMP, DIFF CBC ####[place] [address] [place] Globulin (S) [Mass/Vol]2.8 g/dLPhysicians Regional Medical Center - Pine Ridge Physician GroupComment on above:Performed By: #### PAB, CMP, DIFF CBC ####[place] [address] USAGlucose [Mass/Vol]135 mg/rUYznv11-168 The [facility] Health Physician GroupComment on above:Result Comment: Random Glucose Reference Range is dependent on time and content of last meal. Glucose of more than 200 mg/dL in a nonstressed, ambulatory subject supports the diagnosis of Diabetes Mellitus. ADA recommended reference rangePerformed By: #### PAB, CMP, DIFF CBC ####[place] [address] [place] Potassium [Moles/Vol]3.9 mmol/LNormal3.5-5.1The [facility] Health Physician GroupComment on above:Performed By: #### PAB, CMP, DIFF CBC ####[place] [address] USAProtein [Mass/Vol]5.9 g/dLLow6.4-8.9 The [facility] Health Physician GroupComment on above:Performed By: #### PAB, CMP, DIFF CBC ####[place] [address] [place] Sodium [Moles/Vol]137 mmol/STiaxdo359-952Gav [facility] Health Physician GroupComment on above:Performed By: #### PAB, CMP, DIFF CBC ####[address]Urea nitrogen [Mass/Vol]87 mg/dLHigh 7-25The [facility] Health Physician GroupComment on above:Performed By: #### PAB, CMP, DIFF CBC ####[place] [address] USADiff and CBCon 20-20-9587Xzcrlptptecp Ql (Bld)SlightNoAtrium Health Mercy Physician GroupComment on above:Performed By: #### PAB, CMP, DIFF CBC ####[address] Erythrocyte distribution width (RBC) [Ratio]15.4 %High12.0-14.8The [facility] Health Physician GroupComment on above:Performed By: #### PAB, CMP, DIFF CBC ####[address] Hematocrit (Bld) [Volume fraction]24.0 %Low38.8-50.0The [facility] Health Physician GroupComment on above:Performed By: #### PAB, CMP, DIFF CBC ####[place] [address] USAHemoglobin (Bld) [Mass/Vol]8.3 g/dLLow13.0-17.0The [facility] Health Physician GroupComment on above: Performed By: #### PAB, CMP, DIFF CBC ####[place] [address] USAHypochromasiaSlightPhysicians Regional Medical Center - Pine Ridge Physician GroupComment on above:Performed By: #### PAB, CMP, DIFF CBC ####[address] Lymphocytes/100 WBC (Bld)9 %Suy67-41Brz [facility] Health Physician GroupComment on above:Performed By: #### PAB, CMP, DIFF CBC ####[place] [address] USAMCH (RBC) [Entitic mass]32.3 pgNormal 27.5-35.2The [facility] Health Physician GroupComment on above:Performed By: #### PAB, CMP, DIFF CBC ####[address] StreetMCV (RBC) [Entitic vol]93.8 xRVflghs84.5-101The [facility] Health Physician GroupComment on above:Performed By: #### PAB, CMP, DIFF CBC ####[address]Mean Corpuscular HGB Conc34.5 g/qNIhqxeg54.5-35.6The [facility] Physician [facility] Medical CenterComment on above: Performed By: #### PAB, CMP, DIFF CBC ####[place] [address] USAMetamyelocytes1 %High0-0The [facility] Health Physician GroupComment on above:Performed By: #### PAB, CMP, DIFF CBC ####[address] Monocytes/100 WBC (Bld)7 %Normal2-11The [facility] Phys[facility] Medical CenterComment on above:Performed By: #### PAB, CMP, DIFF CBC ####[place] [address] USAPlatelet EstimateNormalNormalNormJay Hospital Physician [facility] Medical CenterComment on above:Performed By: #### PAB, CMP, DIFF CBC ####[address] Platelet mean volume (Bld) [Entitic vol]7.7 fLNormal6.6-10.1The [facility] Physician [facility] Medical CenterComment on above:Performed By: #### PAB, CMP, DIFF CBC ####[place] [phone] [facility] Platelet MorphologyNormalNormalNormJay Hospital Physician GroupComment on above:Result Comment: PERFORMED BY: [facility] [address] [place] [address] PATHOLOGIST VICE PRESIDENT OF MARKETING KRISTEL LU M.D.Performed By: #### PAB, CMP, DIFF CBC ####[address] [address] USAPlatelets (Bld) [#/Vol]178 10*3/sPPdavhv553-169Ced [facility] Health Physician GroupComment on above: Performed By: #### PAB, CMP, DIFF CBC ####[place] [phone] USAPolychromasiaSlightNormalThe [facility] Health Physician GroupComment on above:Performed By: #### PAB, CMP, DIFF CBC ####[place] [phone] USARBC (Bld) [#/Vol]2.56 10*6/uLLow3.90-5.60The [facility] Health Physician GroupComment on above:Performed By: #### PAB, CMP, DIFF CBC ####[place] [phone] USASegmented neutrophils/100 WBC (Bld)83 %Mcvd62-78Wkl [facility] Health Physician GroupComment on above:Performed By: #### PAB, CMP, DIFF CBC ####[place] [phone] USAWBC (Bld) [#/Vol]7.7 10*3/uLNormal4.1-10.5The [facility] Comment on above:Performed By: #### PAB, CMP, DIFF CBC ####[place] [phone] USAGlobulin Calc (S) [Mass/Vol] Ordered By: Sotero Black on 79-01-5039Ckbqoxuy (S) [Mass/Vol]Serum globulin measurement by calculation (mass/volume)[facility] Prealbuminon 41-66-1937Ieaxijzoda [Mass/Vol]13.6 mg/dLLow17.0-34.0The [facility] Health Physician GroupComment on above:Result Comment: PERFORMED BY: [facility] [address] [place] [id number] PATHOLOGIST VICE PRESIDENT OF MARKETING KRISTEL LU M.D.Performed By: #### RENAL, CBC #### [facility] [address] [place] [address] USAPrealbumin [Mass/volume] in Serum or PlasmaOrdered By: Sotero Black on 26-13-5158Wncetcumsj [Mass/Vol]Prealbumin [Mass/volume] in Serum or KagjncYtk82.0-34.0[facility] CampusProtein [Mass/volume] in Serum or PlasmaOrdered By: Sotero Black on 30-68-7779Ajckqar [Mass/Vol]Protein [Mass/volume] in Serum or PlasmaLow6.4-8.9[facility] Northerum or plasma albumin/globulin mass ratioOrdered By: Sotero Black on 12-28-2024 Albumin/Globulin [Mass ratio]Serum or plasma albumin/globulin mass ratio [facility] CampusBasic Metabolic Panelon 32-54-0138Vlhtq gap [Moles/Vol]14.0 mmol/LNormal6.0-15.0The [facility] Health Physician GroupComment on above:Performed By: #### CBCNO, MG, BMP ####[facility] [address] [place] [address] USACalcium [Mass/Vol]10.0 mg/dLSignificant change down8.6-10.3The [facility] Health Physician GroupComment on above:Performed By: #### CBCNO, MG, BMP ####[facility] Edx[address] [place] [address] USAChloride [Moles/Vol]91 mmol/BLtu38-040Spq [facility] Comment on above:Performed By: #### CBCNO, MG, BMP ####[facility] [address]qc[address] [place] [address] USACO2 [Moles/Vol]34.8 mmol/LHigh 21.0-31.0The [facility] Health Physician GroupComment on above:Performed By: #### CBCNO, MG, BMP ####[facility] [address] [place] [address] USACreatinine [Mass/Vol]3.30 mg/dLSignificant change up0.70-1.30The [facility] Health Physician GroupComment on above:Performed By: #### JACQUI MG, BMP ####[place] [address] [place] [address] USACreatinine Clr Calc Npqhogqt59.71NormJay Hospital Physician GroupComment on above:Performed By: #### JACQUI MG, BMP ####[place] [address] [place] [address] USAEstimated GFR17.934 mL/MinNoAtrium Health Mercy Physician Group Comment on above:Performed By: #### JACQUI MG, BMP ####[place] [address] [place] [address] USAGlucose [Mass/Vol]130 mg/dL Yvvy14-570Ndh [facility] Health Physician GroupComment on above:Result Comment: Random Glucose Reference Range is dependent on time and content of last meal. Glucose of more than 200 mg/dL in a nonstressed, ambulatory subject supports the diagnosis of Diabetes Mellitus. ADA recommended reference rangePerformed By: #### JACQUI MG, BMP ####[place] [address] [place] [address] USAPotassium [Moles/Vol] 3.8 mmol/LNormal3.5-5.1The [facility] Health Physician GroupComment on above:Performed By: #### JACQUI MG, BMP ####[place] [address] [place] [address] USASodium [Moles/Vol]136 mmol/UVknhkc506-065Fbu [facility] Physician GroupComment on above:Performed By: #### JACQUI MG, BMP ####[place] [address] [place] [address] USAUrea nitrogen [Mass/Vol]89 mg/dLHigh7-25The [facility] Health Physician GroupComment on above:Performed By: #### JACQUI MG, BMP ####[address] [address] USACalcium [Mass/volume] in Serum or Plasma Ordered By: Emile Reynolds on 04-49-6653Bscgxei [Mass/Vol]Calcium [Mass/volume] in Serum or PlasmaSignificant change up8.6-10.3FCleveland Clinic Union Hospital Comment on above:Delta: 8.1 on 12/26/24Carbon dioxide, total [Moles/volume] in Serum or PlasmaOrdered By: Emile Reynolds on 22-75-9345KT5 [Moles/Vol]Carbon dioxide, total [Moles/volume] in Serum or MsblaxFpvo21.0-31.0[facility] CampusChloride [Moles/volume] in Serum or PlasmaOrdered By: Emile Reynolds on 05-44-3735Yafaymsh [Moles/Vol]Chloride [Moles/volume] in Serum or PlasmaLow 98-107Sum[facility] CampusCreatinine [Mass/volume] in Serum or PlasmaOrdered By: Emile Reynolds on 13-51-4165Xtwtfimwsj [Mass/Vol]Creatinine [Mass/volume] in Serum or PlasmaSignificant change up0.70-1.30[facility] CampusComment on above:Delta: 3.82 on 12/26/24Erythrocyte distribution width Auto (RBC) [Ratio]Ordered By: Emile Reynolds on 12-27-2024 Erythrocyte distribution width (RBC) [Ratio]Erythrocyte distribution width [Ratio] by Automated xvrfcAoky32.0-14.8[facility] CampusGlucose [Mass/volume] in Serum or PlasmaOrdered By: Emile Reynolds on 34-80-4637Vwpyexg [Mass/Vol]Glucose [Mass/volume] in Serum or SnkkwjGrvp08-464XcndimexzSumma Health Akron CampusComment on above:ADA recommended reference rangeRandom Glucose Reference Range is dependent on time and content of last meal. Glucose of more than 200 mg/dL in a nonstressed, ambulatory subject supports the diagnosisof Diabetes Mellitus.Hematocrit Auto (Bld) [Volume fraction]Ordered By: Emile Reynolds 76-08-1989Docatquuwk (Bld) [Volume fraction]Hematocrit [Volume Fraction] of Blood by Automated xpzjsLum19.8-50.0[facility] CampusHemoglobin [Mass/volume] in BloodOrdered By: Emile Reynolds on 12-27-2024 Hemoglobin (Bld) [Mass/Vol]Hemoglobin [Mass/volume] in QgucgNxg68.0-17.0 [facility] CampusHemogram CBC Without Diffon 12-27-2024 Erythrocyte distribution width (RBC) [Ratio]15.8 %High12.0-14.8The [facility] Health Physician GroupComment on above:Performed By: #### CBCNO, MG, BMP ####[address] [address] USAHematocrit (Bld) [Volume fraction]24.7 %Low38.8-50.0The [facility] Health Physician GroupComment on above:Performed By: #### CBCNO, MG, BMP ####[address] [address] USAHemoglobin (Bld) [Mass/Vol]8.6 g/dLLow 13.0-17.0The [facility] Health Physician GroupComment on above:Performed By: #### CBCNO, MG, BMP ####[address] [address] [facility]EEH (RBC) [Entitic mass]32.0 mwKdpzat62.5-35.2The [facility] Comment on above:Performed By: #### CBCNO, MG, BMP ####[place] [phone] [facility] SHAWNEEV (RBC) [Entitic vol]92.0 fL Xxdlhw10.5-101The [facility] Physician GroupComment on above:Performed By: #### CBCNO, MG, BMP ####[place] [phone] USAMean Corpuscular HGB Conc34.8 g/wJJilnlu43.5-35.6The [facility] Physician GroupComment on above:Performed By: #### CBCNO, MG, BMP ####[place] [phone] USAPlatelet mean volume (Bld) [Entitic vol]7.6 fLNormal6.6-10.1The [facility] Health Physician GroupComment on above:Result Comment: PERFORMED BY: [facility] [address] [facility]ITAL[facility] [place] [id number] PATHOLOGIST VICE PRESIDENT OF MARKETING KRISTEL UL M.D.Performed By: #### CBCNO, MG, BMP ####[facility] [address] [place] [address] USAPlatelets (Bld) [#/Vol]171 10*3/wORxsqwa285-698Fzl [facility] Physician GroupComment on above: Performed By: #### CBCNO, MG, BMP ####[place] [address] [place] [address] USARBC (Bld) [#/Vol]2.69 10*6/uLLow3.90-5.60The [facility] Physician GroupComment on above:Performed By: #### CBCNO, MG, BMP ####[place] [address] [place] [address] USAWBC (Bld) [#/Vol]7.9 10*3/uLNormal4.1-10.5The [facility] Physician GroupComment on above:Performed By: #### CBCNO, MG, BMP ####[place] [address] [place] [address] USALeukocytes [#/volume] corrected for nucleated erythrocytes in Blood by Automated counOrdered By: Emile Reynolds on 10-09-2691FUK corrected for nucl RBC Auto (Bld) [#/Vol]Leukocytes [#/volume] corrected for nucleated erythrocytes in Blood by Automated coun4.1-10.5FSelect Medical Specialty Hospital - Southeast Ohio Auto (RBC) [Entitic mass]Ordered By: Emile Reynolds on 51-69-4423DBD (RBC) [Entitic mass]MCH [Entitic mass] by Automated count27.5-35.2 [facility] HospitalHC Auto (RBC) [Mass/Vol]Ordered By: Emile Reynolds on 97-89-5980YTHQ (RBC) [Mass/Vol]MCHC [Mass/volume] by Automated count 32.5-35.6FMedina HospitalV Auto (RBC) [Entitic vol]Ordered By: Emile Reynolds on 45-71-3038SCD (RBC) [Entitic vol]MCV [Entitic volume] by Automated count83.5-101Sum[facility]ron CampusMagnesiumon 12-27-2024 Magnesium [Mass/Vol]2.3 mg/dLNormal1.9-2.7The [facility] Physician GroupComment on above:Result Comment: PERFORMED BY: [facility] [address] [place] [address] PATHOLOGIST VICE PRESIDENT OF MARKETING KRISTEL LU M.D.Performed By: #### CBCNO, MG, BMP ####[facility] [place] [address] USAMagnesium [Mass/volume] in Serum or PlasmaOrdered By: Emile Reynolds on 29-42-2116Vsuufmavs [Mass/Vol]Magnesium [Mass/volume] in Serum or Plasma1.9-2.7FCleveland Clinic Union HospitalNo Panel InformationOrdered By: Emile Reynolds on 12-27-2024 Estimated GFR (CKD-EPI)17.934 mL/MinSumma Health Akron CampusPharmacy Creatinine Clearance (Chem20.71[facility]17.934 mL/Min [facility]20.71[facility] CampusPlatelet mean volume Auto (Bld) [Entitic vol]Ordered By: Emile Reynolds on 12-27-2024 Platelet mean volume (Bld) [Entitic vol]Platelet mean volume [Entitic volume] in Blood by Automated count6.6-10.1FCleveland Clinic Union HospitalPlatelets Auto (Bld) [#/Vol]Ordered By: Emile Reynolds on 54-82-9246Igigfipyb (Bld) [#/Vol] Platelets [#/volume] in Blood by Automated -549DglziqlocSumma Health Akron CampusPotassium [Moles/volume] in Serum or PlasmaOrdered By: Emile Reynolds on 31-34-3495Rgiphovrp [Moles/Vol]Potassium [Moles/volume] in Serum or Plasma3.5-5.1FCleveland Clinic Union HospitalRBC Auto (Bld) [#/Vol]Ordered By: Emile Reynolds on 01-88-3558KKB (Bld) [#/Vol]Erythrocytes [#/volume] in Blood by Automated countLow3.90-5.60[facility] Northerum or plasma anion gap determinationOrdered By: Emile Reynolds on 04-17-3447Dvlfy gap [Moles/Vol]Serum or plasma anion gap determination6.0-15.0[facility] Northodium [Moles/volume] in Serum or PlasmaOrdered By: Emile Reynolds on 97-16-9727Xyqeyu [Moles/Vol]Sodium [Moles/volume] in Serum or Sfyxxs342-418 [facility] CampusUrea nitrogen [Mass/volume] in Serum or Plasma Ordered By: Emile Reynolds on 90-93-0140Bkrh nitrogen [Mass/Vol]Urea nitrogen [Mass/volume] in Serum or PlasmaHigh7-25[facility] CampusBasic Metabolic Panelon 62-93-3843Yuvdv gap [Moles/Vol]12.5 mmol/LNormal6.0-15.0The [facility] Health Physician GroupComment on above:Performed By: #### BMP, MG, CBC ####[place] [address] USACalcium [Mass/Vol]8.1 mg/dLLow8.6-10.3The [facility] Physician GroupComment on above: Performed By: #### BMP, MG, CBC ####[place] [id number] USAChloride [Moles/Vol]96 mmol/WKvy07-601Cvf [facility] Physician GroupComment on above:Performed By: #### BMP, MG, CBC ####[place] [phone] USACO2 [Moles/Vol]31.5 mmol/LHigh21.0-31.0The [facility] Physician GroupComment on above:Performed By: #### BMP, MG, CBC ####[place] [id number] USACreatinine [Mass/Vol]3.82 mg/dLHigh0.70-1.30The [facility] Physician GroupComment on above:Performed By: #### BMP, MG, CBC ####[place] [phone] USACreatinine Clr Calc Pharmacy 17.90NoAtrium Health Mercy Physician GroupComment on above:Performed By: #### BMP, MG, CBC ####[place] [address] [place] [address] USAEstimated GFR15.046 mL/MinNoAtrium Health Mercy Physician GroupComment on above:Performed By: #### BMP, MG, CBC ####[place] [address] USAGlucose [Mass/Vol]111 mg/kCUyvo42-920Qrl [facility] Physician GroupComment on above:Result Comment: Random Glucose Reference Range is dependent on time and content of last meal. Glucose of more than 200 mg/dL in a nonstressed, ambulatory subject supports the diagnosis of Diabetes Mellitus. ADA recommended reference rangePerformed By: #### BMP, MG, CBC ####[place] [address] [place] [address] USAPotassium [Moles/Vol] 4.0 mmol/LNormal3.5-5.1The [facility] Physician GroupComment on above:Performed By: #### BMP, MG, CBC ####[place] [address] USASodium [Moles/Vol]136 mmol/QOkrjlg094-371Ovf [facility] Physician GroupComment on above:Performed By: #### BMP, MG, CBC ####[place] [address] USAUrea nitrogen [Mass/Vol]85 mg/dLHigh7-25The [facility] Physician GroupComment on above:Performed By: #### BMP, MG, CBC ####[place] [address] USABasophils Auto (Bld) [#/Vol]Ordered By: Emile Reynolds on 81-24-6262Qhmjgfiah (Bld) [#/Vol]Automated basophil count0.0-0.2 [facility] CampusBasophils/100 WBC Auto (Bld)Ordered By: Emile Reynolds on 25-70-6302Myiimyoxy/100 WBC (Bld)Automated basophil %.[facility] CampusComplete Blood Count Auto Diffon 75-38-5416Tegzvowtk (Bld) [#/Vol]0.0 10*3/uLNormal0.0-0.2The [facility] Physician GroupComment on above:Result Comment: PERFORMED BY: [facility] [address] [place] [address] PATHOLOGIST VICE PRESIDENT OF MARKETING KRISTEL LU M.D.Performed By: #### BMP, MG, CBC ####[place] [address] USABasophils/100 WBC (Bld)0.2 %Normal.The [facility] Physician GroupComment on above:Performed By: #### BMP, MG, CBC ####[place] [address] USAEosinophils (Bld) [#/Vol]0.3 10*3/uLNormal0.0-0.45The [facility] Physician GroupComment on above:Performed By: #### BMP, MG, CBC ####[place] [address] USAEosinophils/100 WBC (Bld)4.3 %Normal.The [facility] Physician GroupComment on above:Performed By: #### BMP, MG, CBC ####[place] [phone] USAErythrocyte distribution width (RBC) [Ratio]14.8 %Ietzwe18.0-14.8The [facility] Physician GroupComment on above:Performed By: #### BMP, MG, CBC ####[place] [phone] [place] Hematocrit (Bld) [Volume fraction]21.1 %Low38.8-50.0The [facility] Physician GroupComment on above:Performed By: #### BMP, MG, CBC ####[place] [id number] USAHemoglobin (Bld) [Mass/Vol]7.4 g/dLLow13.0-17.0The [facility] Physician GroupComment on above:Performed By: #### BMP, MG, CBC ####[place] [address] USALymphocytes (Bld) [#/Vol]0.7 10*3/uLLow1.00-4.8The [facility] Physician GroupComment on above:Performed By: #### BMP, MG, CBC ####[place] [address] USALymphocytes/100 WBC (Bld)10.2 %Normal.The [facility] Physician GroupComment on above:Performed By: #### BMP, MG, CBC ####[address]H (RBC) [Entitic mass]32.9 hmDgobxw43.5-35.2The [facility] Physician GroupComment on above:Performed By: #### BMP, MG, CBC ####[address]V (RBC) [Entitic vol]93.7 gFUzhjpo64.5-101The [facility] Physician GroupComment on above:Performed By: #### BMP, MG, CBC ####[place] [address] USAMean Corpuscular HGB Conc35.1 g/uAKbfque85.5-35.6The [facility] Physician GroupComment on above:Performed By: #### BMP, MG, CBC ####[place] [address] [place] Monocytes (Bld) [#/Vol]0.9 10*3/uLHigh0.0-0.8The [facility] Comment on above:Performed By: #### BMP, MG, CBC ####[place] [address] USAMonocytes/100 WBC (Bld)13.1 %Normal. The [facility] Physician GroupComment on above:Performed By: #### BMP, MG, CBC ####[place] [address] [place] Neutrophils (Bld) [#/Vol]5.0 10*3/uLNormal1.8-7.7The [facility] Comment on above:Performed By: #### BMP, MG, CBC ####[place] [id number] USANeutrophils/100 WBC (Bld)72.2 %Normal. The [facility] Physician GroupComment on above:Performed By: #### BMP, MG, CBC ####[place] [address] USANRBC% 0.1 /100{WBC}Normal0-0.5The [facility] Physician GroupComment on above:Performed By: #### BMP, MG, CBC ####[place] [address] USAPlatelet mean volume (Bld) [Entitic vol]8.0 fLNormal 6.6-10.1The [facility] Physician GroupComment on above:Performed By: #### BMP, MG, CBC ####[place] [address] USAPlatelets (Bld) [#/Vol]142 10*3/kRYrm071-307Pjj [facility] Comment on above:Performed By: #### BMP, MG, CBC ####[place] [address] USARBC (Bld) [#/Vol]2.25 10*6/uLLow 3.90-5.60The [facility] Physician GroupComment on above:Performed By: #### BMP, MG, CBC ####[place] [address] USAWBC (Bld) [#/Vol]7.0 10*3/uLNormal4.1-10.5The [facility] Comment on above:Performed By: #### BMP, MG, CBC ####[place] [address] USAEosinophils Auto (Bld) [#/Vol]Ordered By: Emile Reynolds on 26-99-6727Pijobdhqgnn (Bld) [#/Vol]Automated eosinophil count0.0-0.45[facility] CampusEosinophils/100 WBC Auto (Bld) Ordered By: Emile Reynolds on 62-21-9970Bdnlheoznag/100 WBC (Bld)Automated eosinophil %.[facility] CampusLymphocytes Auto (Bld) [#/Vol] Ordered By: Emile Reynolds on 05-90-8586Smvdhlvwqmp (Bld) [#/Vol]Lymphocytes [#/volume] in Blood by Automated countLow1.00-4.8[facility] CampusLymphocytes/100 WBC Auto (Bld)Ordered By: Emile Reynolds on 12-26-2024 Lymphocytes/100 WBC (Bld)Lymphocytes/100 leukocytes in Blood by Automated count. [facility] CampusMagnesiumon 69-64-5962Gkctibyfz [Mass/Vol]2.5 mg/dLNormal1.9-2.7The [facility] Physician GroupComment on above:Result Comment: PERFORMED BY: [facility] [address] [place] [address] PATHOLOGIST VICE PRESIDENT OF MARKETING KRISTEL LU M.D.Performed By: #### BMP, MG, CBC ####[facility] [place] [address] USAMonocytes Auto (Bld) [#/Vol]Ordered By: Emile Reynolds on 03-65-1616Xhmmzvizl (Bld) [#/Vol]Automated blood monocyte countHigh0.0-0.8[facility] CampusMonocytes/100 WBC Auto (Bld)Ordered By: Emile Reynolds on 81-09-1307Dgoqflnfg/100 WBC (Bld) Automated monocyte %.[facility] CampusNeutrophils Auto (Bld) [#/Vol]Ordered By: Emile Reynolds on 46-18-3055Aowaktxegvo (Bld) [#/Vol] Neutrophils [#/volume] in Blood by Automated count1.8-7.7FCleveland Clinic Union HospitalNeutrophils/100 WBC Auto (Bld)Ordered By: Emile Reynolds on 96-29-6647Hzjbkgogyqn/100 WBC (Bld)Automated neutrophil %.[facility] CampusNucleated erythrocytes [Presence] in Blood by Automated count Ordered By: Emile Reynolds on 73-31-0515Mlcfmmpmz RBC Auto Ql (Bld)Nucleated erythrocytes [Presence] in Blood by Automated count0-0.5FCleveland Clinic Union HospitalPathology study report documentOrdered By: Rome Leslie on 12-26-2024 Pathology studySumma Health Akron Campus Other WBC Auto (Bld) [#/Vol]Ordered By: Emile Reynolds on 86-91-7567PYA (Bld) [#/Vol]Leukocytes [#/volume] in Blood by Automated count 4.1-10.5FCleveland Clinic Union HospitalBasic Metabolic Panelon 14-43-1461Wqnbd gap [Moles/Vol]10.1 mmol/LNormal6.0-15.0The [facility] Physician GroupComment on above:Performed By: #### RENAL, CBC #### [facility] [address] [place] [address] USACalcium [Mass/Vol]7.9 mg/dLLow8.6-10.3The [facility] Physician GroupComment on above:Performed By: #### RENAL, CBC #### [facility] [address] [place] [address] USAChloride [Moles/Vol]97 mmol/OFap13-186Yph [facility] Physician GroupComment on above:Performed By: #### RENAL, CBC #### [facility] [address] [place] [address] USACO2 [Moles/Vol]32.0 mmol/LHigh21.0-31.0The [facility] Physician GroupComment on above:Performed By: #### RENAL, CBC #### [facility] [address] [place] [address] USACreatinine [Mass/Vol]3.34 mg/dLHigh0.70-1.30The [facility] Physician GroupComment on above:Performed By: #### RENAL, CBC #### [facility] [address] [place] [address] USACreatinine Clr Calc Fapwqwsh76.47NoAtrium Health Mercy Physician GroupComment on above:Performed By: #### RENAL, CBC #### [place] [address] USAEstimated GFR17.677 mL/MinNoAtrium Health Mercy Physician [facility] Regional Medical CenterComment on above:Performed By: #### RENAL, CBC #### [place] [address] USAGlucose [Mass/Vol]135 mg/hMUwer21-633Lgl [facility] Physician GroupComment on above:Result Comment: Random Glucose Reference Range is dependent on time and content of last meal. Glucose of more than 200 mg/dL in a nonstressed, ambulatory subject supports the diagnosis of Diabetes Mellitus. ADA recommended reference rangePerformed By: #### RENAL, CBC #### [place] [address] USAPotassium [Moles/Vol]4.1 mmol/LNormal3.5-5.1The [facility] Physician GroupComment on above:Performed By: #### RENAL, CBC #### [place] [address] USASodium [Moles/Vol]135 mmol/UJqb686-377Xrz [facility] Physician GroupComment on above:Performed By: #### RENAL, CBC #### [place] [address] USAUrea nitrogen [Mass/Vol]81 mg/dLHigh7-25The [facility] Physician GroupComment on above:Performed By: #### RENAL, CBC #### [place] [address] USAComplete Blood Count Auto Diffon 79-80-0395Xkacgyvxh (Bld) [#/Vol]0.0 10*3/uLNormal0.0-0.2The [facility] Physician GroupComment on above: Result Comment: PERFORMED BY: [place] [address] PATHOLOGIST VICE PRESIDENT OF MARKETING KRISTEL LU M.D.Performed By: #### RENAL, CBC #### [facility] [address] [place] [address] USABasophils/100 WBC (Bld)0.2 %Normal.The [facility] Physician GroupComment on above:Performed By: #### RENAL, CBC #### [facility] [address] [place] [address] USAEosinophils (Bld) [#/Vol]0.1 10*3/uLNormal0.0-0.45The [facility] Physician GroupComment on above:Performed By: #### RENAL, CBC #### [place] [address] USAEosinophils/100 WBC (Bld)1.4 %Normal.The [facility] Physician GroupComment on above:Performed By: #### RENAL, CBC #### [place] [address] USAErythrocyte distribution width (RBC) [Ratio]14.6 %Normal 12.0-14.8The [facility] Physician GroupComment on above:Performed By: #### RENAL, CBC #### [place] [address] USAHematocrit (Bld) [Volume fraction]20.9 %Low38.8-50.0The [facility] Physician GroupComment on above:Performed By: #### RENAL, CBC #### [place] [address] USAHemoglobin (Bld) [Mass/Vol]7.2 g/dLLow13.0-17.0The [facility] Physician GroupComment on above:Performed By: #### RENAL, CBC #### [place] [id number] USALymphocytes (Bld) [#/Vol]0.7 10*3/uLLow1.00-4.8The [facility] Physician GroupComment on above:Performed By: #### RENAL, CBC #### [place] [id number] USALymphocytes/100 WBC (Bld)9.0 %Normal.The [facility] Physician GroupComment on above:Performed By: #### RENAL, CBC #### [facility] [address]H (RBC) [Entitic mass]32.8 xoVqdaas56.5-35.2The [facility] Physician GroupComment on above:Performed By: #### RENAL, CBC #### [facility] [address]V (RBC) [Entitic vol]95.3 pSUcwzgu46.5-101The [facility] Physician GroupComment on above:Performed By: #### RENAL, CBC #### [facility] [address] [place] [address] USAMean Corpuscular HGB Conc34.4 g/iBKtbbjz95.5-35.6The [facility] Physician GroupComment on above:Performed By: #### RENAL, CBC #### [place] [address] USAMonocytes (Bld) [#/Vol]0.8 10*3/uLNormal0.0-0.8The [facility] Physician GroupComment on above:Performed By: #### RENAL, CBC #### [place] [address] USAMonocytes/100 WBC (Bld)10.2 %Normal.The [facility] Physician GroupComment on above:Performed By: #### RENAL, CBC #### [place] [address] USANeutrophils (Bld) [#/Vol]6.3 10*3/uLNormal1.8-7.7The [facility] Physician GroupComment on above:Performed By: #### RENAL, CBC #### [place] [address] USANeutrophils/100 WBC (Bld)79.2 %Normal.The [facility] Physician GroupComment on above:Performed By: #### RENAL, CBC #### [place] [address] USANRBC%0.1 /100{WBC}Normal0-0.5The [facility] Comment on above:Performed By: #### RENAL, CBC #### [facility] [address] [place] [address] USAPlatelet mean volume (Bld) [Entitic vol]8.0 fLNormal 6.6-10.1The [facility] Physician GroupComment on above:Performed By: #### RENAL, CBC #### [facility] [address] [place] [address] USAPlatelets (Bld) [#/Vol]137 10*3/pCOit767-307Ztl [facility] Physician GroupComment on above:Performed By: #### RENAL, CBC #### [place] [address] USARBC (Bld) [#/Vol]2.19 10*6/uLLow3.90-5.60The [facility] Physician GroupComment on above:Performed By: #### RENAL, CBC #### [facility] [address] [place] [address] USAWBC (Bld) [#/Vol]8.0 10*3/uLNormal4.1-10.5The [facility] Physician GroupComment on above:Performed By: #### RENAL, CBC #### [place] [address] USAGlucose Glucometer (BldC) [Mass/Vol]Ordered By: Emile Reynolds on 83-38-6132Uvybpam [Mass/Vol]Capillary blood glucose measurement by glucometer (mass/volume)[facility] CampusComment on above:Random Glucose Reference Range is dependent on time and content of last meal. Glucose of more than 200 mg/dL in a nonstressed, ambulatory subject supports the diagnosis of Diabetes Mellitus.Glucose Poct Glucometerson 50-73-7550Aujcuwe [Mass/Vol]185 mg/dLNormalThSt. Luke's McCall Physician [facility] Regional Medical CenterComment on above:Result Comment: Random Glucose Reference Range is dependent on time and content of last meal. Glucose of more than 200 mg/dL in a nonstressed, ambulatory subject supports the diagnosis of Diabetes Mellitus. PERFORMED BY: [place] [address] PATHOLOGIST VICE PRESIDENT OF MARKETING KRISTEL LU M.D.Performed By: #### RENAL, CBC #### [facility] [address] [place] [address] USAMagnesiumon 48-65-5732Jltikiarp [Mass/Vol]2.5 mg/dLNormal 1.9-2.7The [facility] Physician GroupComment on above:Result Comment: PERFORMED BY: [facility] [address] [place] [address] PATHOLOGIST VICE PRESIDENT OF MARKETING KRISTEL LU M.D.Performed By: #### RENAL, CBC #### [place] [address] USABasic Metabolic Panelon 87-22-0803Jnhdw gap [Moles/Vol] 11.2 mmol/LNormal6.0-15.0The [facility] Physician GroupComment on above:Performed By: #### MG, BMP, CBCNO ####[place] [address] USACalcium [Mass/Vol]7.7 mg/dLLow8.6-10.3The [facility] Physician GroupComment on above:Performed By: #### MG, BMP, CBCNO ####[place] [address] USAChloride [Moles/Vol] 101 mmol/TAoswhp94-620Amt [facility] Physician GroupComment on above:Performed By: #### MG, BMP, CBCNO ####[place] [address] [place] [address] USACO2 [Moles/Vol]30.1 mmol/EBjszrg31.0-31.0The [facility] Physician GroupComment on above:Performed By: #### MG, BMP, CBCNO ####[place] [address] USA Creatinine [Mass/Vol]3.40 mg/dLHigh0.70-1.30The [facility] Physician GroupComment on above:Performed By: #### MG, BMP, CBCNO ####[place] [address] USACreatinine Clr Calc Iuvuftha21.11 NormalThe [facility] Health Physician GroupComment on above:Performed By: #### MG BMP, CBCNO ####[place] [address] [place] Estimated GFR17.303 mL/MinNormalThe [facility] Physician GroupComment on above: Performed By: #### MG BMP, CBCNO ####[place] [address] USAGlucose [Mass/Vol]158 mg/tXBuwz33-494Vxd [facility] Physician GroupComment on above:Result Comment: Random Glucose Reference Range is dependent on time and content of last meal. Glucose of more than 200 mg/dL in a nonstressed, ambulatory subject supports the diagnosis of Diabetes Mellitus. ADA recommended reference rangePerformed By: #### MG BMP, CBCNO ####[place] [address] USAPotassium [Moles/Vol] 4.3 mmol/LNormal3.5-5.1The [facility] Physician GroupComment on above:Performed By: #### MG BMP CBCNO ####[place] [address] USASodium [Moles/Vol]138 mmol/RObnufq673-509Env [facility] Physician GroupComment on above:Performed By: #### MG BMP, CBCNO ####[place] [id number] USAUrea nitrogen [Mass/Vol]70 mg/dLHigh7-25The [facility] Physician GroupComment on above:Performed By: #### MG, BMP, CBCNO ####[place] [id number] USAHemogram CBC Without Diffon 12-24-2024 Erythrocyte distribution width (RBC) [Ratio]14.2 %Ifogas99.0-14.8The [facility] Physician GroupComment on above:Performed By: #### MG, BMP, CBCNO ####[place] [id number] USAHematocrit (Bld) [Volume fraction]25.3 %Low38.8-50.0The [facility] Physician GroupComment on above:Performed By: #### MG, BMP, CBCNO ####[place] [id number] USAHemoglobin (Bld) [Mass/Vol]8.7 g/dLLow 13.0-17.0The [facility] Physician GroupComment on above:Performed By: #### MG, BMP, CBCNO ####[place] [id number] USAMCH (RBC) [Entitic mass]32.8 duUgilkz18.5-35.2The [facility] Comment on above:Performed By: #### MG, BMP, CBCNO ####[place] [address] USAMCV (RBC) [Entitic vol]95.5 fL Zehvdx41.5-101The [facility] Physician GroupComment on above:Performed By: #### MG, BMP, CBCNO ####[place] [id number] USAMean Corpuscular HGB Conc34.3 g/qHAwdzhd77.5-35.6The [facility] Physician GroupComment on above:Performed By: #### MG, BMP, CBCNO ####[place] [id number] USAPlatelet mean volume (Bld) [Entitic vol]7.7 fLNormal6.6-10.1The [facility] Physician GroupComment on above:Result Comment: PERFORMED BY: [facility] [address] [place] [id number] PATHOLOGIST VICE PRESIDENT OF MARKETING KRISTEL LU M.D.Performed By: #### MG, BMP, CBCNO ####[place] [id number] USAPlatelets (Bld) [#/Vol]143 10*3/bPUug656-429Saw [facility] Physician GroupComment on above: Performed By: #### MG, BMP, CBCNO ####[place] [address] [place] [address] USARBC (Bld) [#/Vol]2.64 10*6/uLLow3.90-5.60The [facility] Physician GroupComment on above:Performed By: #### MG, BMP, CBCNO ####[place] [id number] USAWBC (Bld) [#/Vol]10.8 10*3/uLHigh4.1-10.5The [facility] Physician GroupComment on above:Performed By: #### MG, BMP, CBCNO ####[place] [id number] USAMagnesiumon 76-85-5638Zdotwkkiy [Mass/Vol]2.4 mg/dLNormal1.9-2.7The [facility] Physician GroupComment on above:Result Comment: PERFORMED BY: [facility] [address] [place] [address] PATHOLOGIST VICE PRESIDENT OF MARKETING KRISTEL LU M.D.Performed By: #### MG, BMP, CBCNO ####[place] [id number] USAAppearance of Urine Ordered By: Emile Reynolds on 65-31-6421Jkhzlgiauk (U)Urine appearanceClear [facility] CampusArterial Blood Gason 54-46-6581MQZ Base Excess- 0.9 mmol/LNormal-3.0-3.0The [facility] Physician GroupComment on above:Performed By: #### ABG ####Point of Care testing,ABG Frac Inspired O2100 %NormalThe [facility] Health Physician GroupComment on above:Performed By: #### ABG ####Point of Care testing,ABG Oxygen Content6.4 mmol/LLow6.6-9.7The [facility] Comment on above:Performed By: #### ABG ####Point of Care testing,ABG Oxygen Qbskthagud36.8 %Efzuxy04.0-100.0The [facility] Physician GroupComment on above: Performed By: #### ABG ####Point of Care testing,ABG SOW464.6 mm[Hg]Normal 35.0-45.0The [facility] Physician GroupComment on above:Performed By: #### ABG ####Point of Care testing,ABG PEEP6 [address] [place] [address] Physician Group Comment on above:Performed By: #### ABG ####Point of Care testing,ABG PH7.41 Normal7.35-7.45The [facility] Physician GroupComment on above:Performed By: #### ABG ####Point of Care testing,ABG ZQ4073.6 mm[Hg]Off scale high80.0-100.0The [facility] Physician GroupComment on above:Performed By: #### ABG ####Point of Care testing,ABG Pressure Support6.[address] [place] [address] Physician Group Comment on above:Performed By: #### ABG ####Point of Care testing,Oxygen Device BiPAPNoAtrium Health Mercy Physician GroupComment on above:Performed By: #### ABG ####Point of Care testing,Respiratory CriticalPhysicians Regional Medical Center - Pine Ridge Physician GroupComment on above:Result Comment: Critical Value called on: 12/23/2024 at 21:14 PERFORMED BY: [facility] [place] [address] PATHOLOGIST VICE PRESIDENT OF MARKETING KRISTEL LU M.D.Performed By: #### ABG ####Point of Care testing,VBG Draw SiteRight RadialPhysicians Regional Medical Center - Pine Ridge Physician GroupComment on above: Performed By: #### ABG ####Point of Care testing,Arterial Blood GasOrdered By: Emile Reynolds on 58-17-4192RF2 [Moles/Vol]24.6 mmol/CNlnten81.0-27.0[facility] CampusComment on above:Performed By: #### ABG ####Point of Care testing,HCO3 (Bld) [Moles/Vol]23.5 mmol/PHtmlls42.0-29.0[facility] CampusComment on above:Performed By: #### ABG ####Point of Care testing, Bacteria [Presence] in Urine by AutomatedOrdered By: Emile Reynolds on 12-23-2024 Bacteria Auto Ql (U)Bacteria [Presence] in Urine by AutomatedHighNone Seen [facility] CampusBilirubin Test strip Ql (U)Ordered By: Emile Reynolds on 00-37-4927Ejfclmiko Ql (U)Bilirubin.total [Presence] in Urine by Test stripNegativeSumma Health Akron CampusColor Auto (U)Ordered By: Emile Reynolds on 75-88-4829Kgify (U)Color of Urine by AutoYellowSumma Health Akron CampusComplete Blood Count Auto Diffon 36-82-4854Pdxbhmmzk (Bld) [#/Vol] 0.0 10*3/uLNormal0.0-0.2The [facility] Physician GroupComment on above:Order Comment: Comment send as soon as patient arrivesResult Comment: PERFORMED BY: [place] [address] PATHOLOGIST VICE PRESIDENT OF MARKETING KRISTEL LU M.D.Performed By: #### CBC #### [facility] [address] [place] [address] USABasophils/100 WBC (Bld)0.2 %Normal.The [facility] Physician GroupComment on above:Order Comment: Comment send as soon as patient arrives Performed By: #### CBC #### [facility] [address] [place] [address] USAEosinophils (Bld) [#/Vol]0.0 10*3/uLNormal0.0-0.45The [facility] Physician GroupComment on above:Order Comment: Comment send as soon as patient arrivesPerformed By: #### CBC #### [place] [address] USAEosinophils/100 WBC (Bld)0.1 %Normal.The [facility] Physician GroupComment on above:Order Comment: Comment send as soon as patient arrivesPerformed By: #### CBC #### [address] [address] USAErythrocyte distribution width (RBC) [Ratio]14.8 %Normal 12.0-14.8The [facility] Physician GroupComment on above:Order Comment: Comment send as soon as patient arrivesPerformed By: #### CBC #### [place] [address] USAHematocrit (Bld) [Volume fraction]29.5 %Low38.8-50.0The [facility] Physician GroupComment on above:Order Comment: Comment send as soon as patient arrivesPerformed By: #### CBC #### [facility] [address] [place] [address] USAHemoglobin (Bld) [Mass/Vol]9.9 g/dLLow13.0-17.0The [facility] Physician GroupComment on above:Order Comment: Comment send as soon as patient arrivesPerformed By: #### CBC #### [place] [address] USALymphocytes (Bld) [#/Vol]0.4 10*3/uLLow1.00-4.8The [facility] Physician GroupComment on above:Order Comment: Comment send as soon as patient arrivesPerformed By: #### CBC #### [place] [address] USALymphocytes/100 WBC (Bld)3.3 %Normal.The [facility] Physician GroupComment on above:Order Comment: Comment send as soon as patient arrivesPerformed By: #### CBC #### [place] [address] USAMCH (RBC) [Entitic mass]31.9 xsLkjkjh36.5-35.2The [facility] Health Physician GroupComment on above:Order Comment: Comment send as soon as patient arrivesPerformed By: #### CBC #### [place] [address] USAMCV (RBC) [Entitic vol]95.5 qAFjiaep85.5-101The [facility] Health Physician GroupComment on above:Order Comment: Comment send as soon as patient arrivesPerformed By: #### CBC #### [facility] [address] [place] [address] USAMean Corpuscular HGB Conc33.4 g/cAKpmcgx46.5-35.6The [facility] Physician GroupComment on above:Order Comment: Comment send as soon as patient arrivesPerformed By: #### CBC #### [facility] [address] [place] [address] USAMonocytes (Bld) [#/Vol]0.8 10*3/uLNormal0.0-0.8The [facility] Physician GroupComment on above:Order Comment: Comment send as soon as patient arrivesPerformed By: #### CBC #### [facility] [address] [place] [address] USAMonocytes/100 WBC (Bld)6.6 %Normal.The [facility] Physician GroupComment on above:Order Comment: Comment send as soon as patient arrives Performed By: #### CBC #### [facility] [address] [place] [address] USANeutrophils (Bld) [#/Vol]11.3 10*3/uLHigh1.8-7.7The [facility] Physician GroupComment on above:Order Comment: Comment send as soon as patient arrivesPerformed By: #### CBC #### [facility] [address] [place] [address] USANeutrophils/100 WBC (Bld)89.8 %Normal.The [facility] Physician GroupComment on above:Order Comment: Comment send as soon as patient arrivesPerformed By: #### CBC #### [facility] [address] [place] [address] USANRBC%0.0 /100{WBC}Normal0-0.5The [facility] Comment on above:Order Comment: Comment send as soon as patient arrivesPerformed By: #### CBC #### [facility] [address] [place] [address] USAPlatelet mean volume (Bld) [Entitic vol]7.5 fLNormal 6.6-10.1The [facility] Physician GroupComment on above:Order Comment: Comment send as soon as patient arrivesPerformed By: #### CBC #### [facility] [address] [place] [address] USAPlatelets (Bld) [#/Vol]149 10*3/yKVdl367-413Zvb [facility] Physician GroupComment on above:Order Comment: Comment send as soon as patient arrivesPerformed By: #### CBC #### [facility] [address] [place] [id number] USARBC (Bld) [#/Vol]3.09 10*6/uLLow3.90-5.60The [facility] Physician GroupComment on above:Order Comment: Comment send as soon as patient arrivesPerformed By: #### CBC #### [facility] [address] [place] [address] USAWBC (Bld) [#/Vol]12.5 10*3/uLHigh4.1-10.5The [facility] Physician GroupComment on above:Order Comment: Comment send as soon as patient arrivesPerformed By: #### CBC #### [facility] [address] [place] [address] USADipstick and Microscopicon 31-40-3827Homquppmkl (U)Clear NormalClearThe [facility] Physician [facility] Medical CenterComment on above:Order Comment: Comment results to PCP Dr Linda and FPG NephroPerformed By: #### RENAL, CBC #### [facility] [address] [place] [address] USABacteria,Urine1+HighNone SeenThe [facility] Physician Group Comment on above:Order Comment: Comment results to PCP Dr Linda and FPG Nephro Performed By: #### RENAL, CBC #### [facility] [address] [place] [phone] USABilirubin,UrineNegativeNormalNegativeThe [facility] Health Physician GroupComment on above:Order Comment: Comment results to PCP Dr Linda and FPG NephroPerformed By: #### RENAL, CBC #### [facility] [address] [place] [phone] USAColor (U)Light-YellowNormalYellowThe [facility] Health Physician GroupComment on above:Order Comment: Comment results to PCP Dr Linda and FPG NephroPerformed By: #### RENAL, CBC #### [address] [address] USAGlucose Ql (U)NormalNormalNormalThe [facility] Physician GroupComment on above:Order Comment: Comment results to PCP Dr Linda and FPG NephroPerformed By: #### RENAL, CBC #### [place] [id number] USAHyaline Casts,UrineNoneNormal0-8The [facility] Physician GroupComment on above:Order Comment: Comment results to PCP Dr Linda and FPG NephroPerformed By: #### RENAL, CBC #### [address] [address] USAKetones Ql (U)NegativeNormalNegativeThe [facility] Health Physician GroupComment on above:Order Comment: Comment results to PCP Dr Linda and FPG NephroPerformed By: #### RENAL, CBC #### [address] [address] USALeukocyte esterase Test strip Ql (U)NegativeNormalNegative The [facility] Physician GroupComment on above:Order Comment: Comment results to PCP Dr Linda and FPG NephroPerformed By: #### RENAL, CBC #### [address] [address] USAMucus,UrineRareNormalThe [facility] Health Physician GroupComment on above:Order Comment: Comment results to PCP Dr Linda and FPG NephroResult Comment: PERFORMED BY: [place] [address] PATHOLOGIST VICE PRESIDENT OF MARKETING KRISTEL LU M.D.Performed By: #### RENAL, CBC #### [place] [address] USANitrite,UrineNegativeNormalNegativeHca [facility] Hospital Physician GroupComment on above:Order Comment: Comment results to PCP Dr Linda and FPG NephroPerformed By: #### RENAL, CBC #### [place] [id number] USAOccult Blood,UrineTraceHighNegativeThe [facility] Health Physician GroupComment on above:Order Comment: Comment results to PCP Dr Linda and FPG NephroResult Comment: PERFORMED BY: [place] [address] PATHOLOGIST VICE PRESIDENT OF MARKETING KRISTEL LU M.D.Performed By: #### RENAL, CBC #### [place] [address] USApH (U)5.5 [pH]Normal5.0-9.0[facility] Comment on above:Order Comment: Comment results to PCP Dr Linda and FPG Nephro Performed By: #### RENAL, CBC #### [place] [address] USAProtein (U) [Mass/Vol]30 mg/dLHighNegativeThe [facility] Health Physician GroupComment on above:Order Comment: Comment results to PCP Dr Linda and FPG NephroPerformed By: #### RENAL, CBC #### [place] [address] USARBC,Oapgl5-3Gvri6-7Hfx [facility] Physician GroupComment on above:Order Comment: Comment results to PCP Dr Linda and FPG NephroPerformed By: #### RENAL, CBC #### [place] [address] USASpecificy [place],Urine1.600Amfkfr2.001-1.030The [facility] Physician GroupComment on above:Order Comment: Comment results to PCP Dr Linda and FPG NephroPerformed By: #### RENAL, CBC #### [place] [address] USASquamous Epithelial Cell,Tswgw4-0Mchunx3-3Hdd [facility] Physician GroupComment on above:Order Comment: Comment results to PCP Dr Linda and FPG NephroPerformed By: #### RENAL, CBC #### [place] [address] USAUrobilinogen,UrineNormalNormalNormalThe [facility] Health Physician GroupComment on above:Order Comment: Comment results to PCP Dr Linda and FPG NephroPerformed By: #### RENAL, CBC #### [facility] [address] [place] [address] USAWBC,Ddovp3-7Rkzx6-6Iww [facility] Physician GroupComment on above:Order Comment: Comment results to PCP Dr Linda and FPG NephroPerformed By: #### RENAL, CBC #### [facility] [address] [place] [address] USAEpithelial cells.squamous [#/area] in Urine sediment by Automated countOrdered By: Emile Reynolds on 34-45-0212Xygvxmdazq cells.squamous Auto (Urine sed) [#/Area]Epithelial cells.squamous [#/area] in Urine sediment by Automated count0-2FCleveland Clinic Union HospitalErythrocytes [#/area] in Urine sediment by Automated countOrdered By: Emile Reynolds on 50-71-5526FOJ Auto (Urine sed) [#/Area]Erythrocytes [#/area] in Urine sediment by Automated count High0-4FCleveland Clinic Union HospitalGlucose Poct Glucometerson 12-23-2024 Glucose [Mass/Vol]145 mg/dLNoAtrium Health Mercy Physician GroupComment on above: Result Comment: Random Glucose Reference Range is dependent on time and content of last meal. Glucose of more than 200 mg/dL in a nonstressed, ambulatory subject supports the diagnosis of Diabetes Mellitus. PERFORMED BY: [place] [address] PATHOLOGIST VICE PRESIDENT OF MARKETING KRISTEL LU M.D.Performed By: #### RENAL, CBC #### [place] [address] USAGlucose [Mass/volume] in Urine by Test stripOrdered By: Emile Reynolds on 62-13-6553Xyzdpwh Test strip (U) [Mass/Vol]Glucose [Mass/volume] in Urine by Test stripNoSumma HealthHemoglobin Test strip Ql (U)Ordered By: Emile Reynolds on 00-33-3413Mwdrzwhtqd Ql (U)Hemoglobin [Presence] in Urine by Test stripHighNegativeSumma Health Akron Campus Hyaline casts [#/area] in Urine sediment by Automated countOrdered By: Emile Reynolds on 81-27-7753Ocbvciu casts Auto (Urine sed) [#/Area]Hyaline casts [#/area] in Urine sediment by Automated count0-8Sum[facility] Health Akron CampusKetones Test strip Ql (U)Ordered By: Emile Reynolds on 03-37-3748Gfzkate Ql (U)Ketones [Presence] in Urine by Test stripNegativeSumma Health Akron CampusLon 12-23-2024L Specimen: [id number] Received: 12/23/24 Status: ДМИТРИЙ Hurd Num: [id number] Spec Type: Surgical Subm Dr: Walker Soria MD Tissues: A Femoral Head - Fracture (RT HIP) Procedures: HE/2, Gross/Micro L4, Decalcification Age/ Patient Sex Location Account Attending Physician Delano Oliver 84/M 4N [id number] Emile Reynolds, SPEC NUM: [id number] RECD: 12/23/24 STATUS: ДМИТРИЙ JHONNY NUM: [id number] LLOYD: 12/23/24- DR: Walker Soria MD ENTERED: 12/23/24 [facility] DR: RHIANNA TYPE: Surgical DEPT: S ORDERED: [...] femoral head is staley, firm and uniform. Home Manager sections are submitted in A1?A2 after decalcification in rapid Stephon immuno. (2, , [id number] A) Microscopic Description Microscopic examination is performed. Specimen: [id number] Received: 12/23/24 Status: ДМИТРИЙ Hurd Num: [id number] Spec Type: Surgical Subm Dr: Walker Soria MD Tissues: A Femoral Head - Fracture (RT HIP) Procedures: HE/2, Gross/Micro L4, Decalcification Patient: OliverDelano [id number] (Continued) Specimen: [id number] Received: 12/23/24 (Continued) Signed (signature on file) Rome Leslie MD 12/26/24 1327 Specimen: [id number] Received: 12/23/24 Status: ДМИТРИЙ Hurd Num: [id number] Spec Type: Surgical Subm Dr: Walker Soria MD Tissues: A Femoral Head - Fracture (RT HIP) Procedures: 2, Gross/Micro L4, Decalcification Patient: Delano Oliver [id number] (Continued) Specimen: [id number] Received: 12/23/24 (Continued) CPT Codes 34851 Specimen: [id number] Received: 12/23/24 Status: ДМИТРИЙ Hurd Num: [id number] Spec Type: Surgical Subm Dr: Walker Soria MD Tissues: A Femoral Head - Fracture (RT HIP) Procedures: HE/2, Gross/Micro L4, Decalcification Patient: Delano Oliver [id number] (Continued) Signed (signature on file) Rome Leslie MD 12/26/24 1327Normal [facility] Physician GroupLeukoReduced RBCon 74-66-2413VphzoOijyrbr RBC TRANSFUSED 12/26/24 1424NoAtrium Health Mercy Physician GroupLeukocyte esterase [Presence] in Urine by Test stripOrdered By: Emile Reynolds on 14-69-1735Mjeemgvpm esterase Test strip Ql (U)Leukocyte esterase [Presence] in Urine by Test strip NegativeSumma Health Akron CampusLeukocytes [#/area] in Urine sediment by Automated countOrdered By: Emile Reynolds on 64-73-0817JXC Auto (Urine sed) [#/Area]Leukocytes [#/area] in Urine sediment by Automated countHigh0-4FCleveland Clinic Union HospitalMucus [Presence] in Urine by AutomatedOrdered By: Emile Reynolds on 07-96-2294Zvsew Auto Ql (U)Mucus [Presence] in Urine by Automated [facility] CampusNitrite Test strip Ql (U)Ordered By: Emile Reynolds on 57-57-6395Vxffxbk Ql (U)Nitrite [Presence] in Urine by Test strip NegativeSumma Health Akron CampusNo Panel InformationOrdered By: Emile Reynolds on 08-79-7075Ieifuowq Blood Base Excess-0.9 mmol/L-3.0-3.0Sum[facility] Akron CampusArterial Blood Oxygen Content6.4 mmol/LLow6.6-9.7 [facility] CampusArterial Blood Oxygen Pvpcfurtzn32.8 % 95.0-100.0Sum[facility] CampusArterial Blood Partial Pressure CO2 37.6 mm[Hg]35.0-45.0[facility] CampusArterial Blood Partial Pressure O2170.6 mm[Hg]Critically high80.0-100.0[facility] CampusArterial Blood pH7.417.35-7.45Sum[facility] CampusBlood Gas Critical ValueSee Parkview Health Montpelier HospitalComment on above: Critical Value called on: 12/23/2024 at 21:14Blood Gas PEEP6 chT8JZkdhvroukSumma Health Akron CampusBlood Gas Pressure Support6.0 ivG7SFimtkxlteSumma Health Akron CampusBlood Gas Sample SiteRight [facility] DjV8181 %[facility] CampusOxygen Delivery DeviceBipapSumma Health Akron Campus7.417.35-7.45[facility]37.6 mm[Hg] 35.0-45.0[facility]170.6 mm[Hg]Critically high80.0-100.0 [facility]23.5 mmol/L23.0-29.0[facility]-0.9 mmol/L-3.0-3.0[facility]98.8 %95.0-100.0 [facility]6.4 mmol/LLow6.6-9.7FCleveland Clinic [facility] Hospital24.6 mmol/L23.0-27.0[facility]100 %[facility]6 hiL7NHhjbvlrzkSumma Health Akron Campus6.0 cmH2O [facility] CampusRight [facility] BipapSelect [facility] Specialty [facility] Northee commentSumma Health Akron CampusProtein Test strip (U) [Mass/Vol]Ordered By: Emile Reynolds on 12-23-2024 Protein (U) [Mass/Vol]Protein [Mass/volume] in Urine by Test stripHighNegative [facility] Northpecific gravity Test strip (U) [Rel density] Ordered By: Emile Reynolds on 23-14-3539Ojnswzzn gravity (U) [Rel density]Specific gravity of Urine by Test strip1.001-1.030Sum[facility] CampusType and Screenon 91-41-6190TMT and Rh group Nom (Bld)Blood group O Rh(D) positive NormalThe [facility] Health Physician GroupComment on above:Order Comment: expiring BB band Transfuse now? Y Number of units to transfuse now? 1 Transfuse now? Y Number of units to transfuse now? 1Result Comment: PERFORMED BY: [address] [address] PATHOLOGIST VICE PRESIDENT OF MARKETING KRISTEL LU M.D.Urobilinogen Test strip (U) [Mass/Vol]Ordered By: Emile Reynolds on 11-08-7747Vqyhkbijntbj (U) [Mass/Vol]Urobilinogen [Mass/volume] in Urine by Test stripNormalSumma Health Akron CampusX-ray reportOrdered By: Dominik Hamm on 84-64-9549Priit reportFAYETTE COUNTY MEM[facility]IAL [facility] Main [address] [address] XRay Report Signed Patient: Delano Oliver MR#: [id number] : 1940 Acct:[id number] Age/Sex: 84 / M ADM Date: 5 Loc: Room: [address] [place] [address] Type: ADM IN Attending Dr: Emile Reynolds [...] Dominik Hamm DO 12/23/242114 Signed By: 12/23/242116 [facility] CampusX-ray reportOrdered By: Sotero Scott on 35-61-5559Elogj reportFAYETTE COUNTY MEMORIAL HOSPITAL Main [address] [address] XRay Report Signed Patient: Delano Oliver MR#: [id number] : 1940 Acct:[id number] Age/Sex: 84 / M ADM Date: 5 Loc: Room: [address] [place] [address] Type: ADM IN Attending Dr: Emile Reynolds DO Copies to: DO Walker Bhat MD~ Ordering Provider: Walker Soria MD Date of Service: 12/23/24 XR/XR hip RT min 2V(w/wo pelvis)*: Hip Fracture Post op ([id number]) XR/XR knee RT 2V: PAIN ([id number]) XR/XR ankle RT 2V: PAIN RIGHT HIP [...] Scott Jr., D.OKeo12/23/2024 2:26 PM Dictation Location: [facility]22 Transcribed By: CALI 12/23/241425 Dictated By: Sotero Scott Jr, DO 12/23/241423 Signed By: 12/23/241425 [facility] Northtudy reportFAYETTE COUNTY MEMORIAL [facility]OSP[facility] Main [address] [address] XRay Report Signed Patient: Delano Oliver MR#: [id number] : 1940 Acct:[id number] Age/Sex: 84 / M ADM Date: 5 Loc: 4N Room: [address] [place] [address] Type: ADM IN Attending Dr: Emile Reynolds [...] Scott Jr., D.OKeo12/23/2024 9:50 AM Dictation Location: [place] [address] Transcribed By: [facility] 12/23/24 0950 Dictated By: Sotero Scott Jr, DO 12/23/24 0950 Signed By: 12/23/24 0950 [facility]ron CampusXR ankle RT 2Von 57-63-0599IC ankle RT 2V [address] [address] XRay Report Signed Patient: Delano Oliver MR#: [id number] [birth year] : 1940 Acct:[id number] Age/Sex: 84 / M ADM Date: 12/21/24 Loc: 4N Room: [address] [place] [address] Type: ADM IN Attending Dr: Emile Reynolds DO Copies to: DO Walker Bhat MD Ordering Provider: Walker Soria MD Date of Service: 12/23/24 XR/XR hip RT min 2V(w/wo pelvis)*: Hip Fracture Post op ([id number]) XR/XR knee RT 2V: PAIN ([id number]) XR/XR ankle RT 2V: PAIN RIGHT HIP [...] Scott Jr., DKeoOKeo12/23/2024 2:26 PM Dictation Location: [place] [address] Transcribed By: [facility] 12/23/24 1426 Dictated By: Sotero Scott Jr, DO 12/23/24 1424 Signed By: 12/23/[address] [place] [address] Physician GroupXR chest 1V portableon 30-91-0032AX chest 1V portableFAYETTE COUNTY MEMORIAL [facility]OSP[facility] Main [place] [address] [place] [address] XRay Report Signed Patient: Delano Oliver MR#: [id number] [birth year] : 1940 Acct:[id number] Age/Sex: 84 / M ADM Date: 12/21/24 Loc: Room: [address] [place] [address] Type: ADM IN Attending Dr: Emile Reynolds [...] 9:17 PM Dictation Location: [facility]-PC-20 Transcribed By: [facility] 12/23/242116 Dictated By: Dominik Hamm DO 12/23/242114 Signed By: 12/23/242116[facility] Physician [facility] CenterXR chest 1V portableFAYETTE COUNTY MEMORIAL HOSPITAL Main [place] [address] [place] [address] XRay Report Signed Patient: Delano Oliver MR#: [id number] [birth year] : 1940 Acct:[id number] Age/Sex: 84 / M ADM Date: 12/21/24 Loc: Room: [address] [place] [address] Type: ADM IN Attending Dr: Emile Reynolds [...] Scott Jr., D.OKeo12/23/2024 9:50 AM Dictation Location: [facility]-PC-22 Transcribed By: CALI 12/23/2450 Dictated By: Sotero Scott Jr, DO 12/23/24949 Signed By: 12/23/24949[facility], RochesterpH Test strip (U)Ordered By: Emile Reynolds on 67-85-9134eU (U)pH of Urine by Test strip5.0-9.0[facility] CampusBasic Metabolic Panelon 14-24-6286Mmifd gap [Moles/Vol] 11.3 mmol/LNormal6.0-15.0The [facility] Physician GroupComment on above:Performed By: #### RENAL, CBC #### [place] [address] USACalcium [Mass/Vol]8.4 mg/dLLow8.6-10.3The [facility] Physician GroupComment on above:Performed By: #### RENAL, CBC #### [place] [address] USAChloride [Moles/Vol]104 mmol/EGphptn89-706Nbo [facility] Physician GroupComment on above:Performed By: #### RENAL, CBC #### [place] [address] USACO2 [Moles/Vol]30.4 mmol/ASqzyxm98.0-31.0The [facility] Physician GroupComment on above:Performed By: #### RENAL, CBC #### [place] [address] USACreatinine [Mass/Vol]2.61 mg/dLHigh0.70-1.30The [facility] Physician GroupComment on above:Performed By: #### RENAL, CBC #### [place] [address] USACreatinine Clr Calc Vzgzdsxp18.99NoAtrium Health Mercy Physician GroupComment on above:Result Comment: PERFORMED BY: [place] [address] PATHOLOGIST VICE PRESIDENT OF MARKETING KRISTEL LU M.D.Performed By: #### RENAL, CBC #### [facility] [address] [place] [address] USAEstimated GFR23.765 mL/MinNoAtrium Health Mercy Physician [facility] Medical CenterComment on above:Performed By: #### RENAL, CBC #### [place] [address] USAGlucose [Mass/Vol]143 mg/pCSpox75-020Uya [facility] Physician GroupComment on above:Result Comment: Random Glucose Reference Range is dependent on time and content of last meal. Glucose of more than 200 mg/dL in a nonstressed, ambulatory subject supports the diagnosis of Diabetes Mellitus. ADA recommended reference rangePerformed By: #### RENAL, CBC #### [place] [address] USAPotassium [Moles/Vol]3.7 mmol/LNormal3.5-5.1The [facility] Physician GroupComment on above:Performed By: #### RENAL, CBC #### [place] [address] USASodium [Moles/Vol]142 mmol/MDgthlz386-723Ohx [facility] Physician GroupComment on above:Performed By: #### RENAL, CBC #### [place] [address] USAUrea nitrogen [Mass/Vol]58 mg/dLHigh7-25The [facility] Physician GroupComment on above:Performed By: #### RENAL, CBC #### [place] [address] USAComplete Blood Count Auto Diffon 08-74-6003Kkphnroym (Bld) [#/Vol]0.1 10*3/uLNormal0.0-0.2The [facility] Physician [facility] Medical CenterComment on above: Result Comment: PERFORMED BY: [place] [address] PATHOLOGIST VICE PRESIDENT OF MARKETING KRISTEL LU M.D.Performed By: #### RENAL, CBC #### [place] [address] USABasophils/100 WBC (Bld)0.6 %Normal.The [facility] Physician GroupComment on above:Performed By: #### RENAL, CBC #### [place] [address] USAEosinophils (Bld) [#/Vol]0.2 10*3/uLNormal0.0-0.45The [facility] Physician GroupComment on above:Performed By: #### RENAL, CBC #### [place] [address] USAEosinophils/100 WBC (Bld)1.5 %Normal.The [facility] Physician GroupComment on above:Performed By: #### RENAL, CBC #### [place] [address] USAErythrocyte distribution width (RBC) [Ratio]14.2 %Normal 12.0-14.8The [facility] Physician GroupComment on above:Performed By: #### RENAL, CBC #### [place] [address] USAHematocrit (Bld) [Volume fraction]34.4 %Low38.8-50.0The [facility] Physician GroupComment on above:Performed By: #### RENAL, CBC #### [place] [address] USAHemoglobin (Bld) [Mass/Vol]11.7 g/dLLow13.0-17.0The [facility] Physician GroupComment on above:Performed By: #### RENAL, CBC #### [place] [address] USALymphocytes (Bld) [#/Vol]0.8 10*3/uLLow1.00-4.8The [facility] Physician GroupComment on above:Performed By: #### RENAL, CBC #### [place] [address] USALymphocytes/100 WBC (Bld)6.8 %Normal.The [facility] Physician GroupComment on above:Performed By: #### RENAL, CBC #### [place] [address] USAMCH (RBC) [Entitic mass]32.2 spZiuimk75.5-35.2The [facility] Physician GroupComment on above:Performed By: #### RENAL, CBC #### [place] [address] USAMCV (RBC) [Entitic vol]94.5 mWAxmsyi11.5-101The [facility] Physician GroupComment on above:Performed By: #### RENAL, CBC #### [address] [place] [address] USAMean Corpuscular HGB Conc34.1 g/cNWgpwno72.5-35.6The [facility] Physician GroupComment on above:Performed By: #### RENAL, CBC #### [facility] [address] [place] [address] USAMonocytes (Bld) [#/Vol]0.9 10*3/uLHigh0.0-0.8The [facility] Physician GroupComment on above:Performed By: #### RENAL, CBC #### [facility] [address] [place] [address] USAMonocytes/100 WBC (Bld)7.7 %Normal.The [facility] Physician GroupComment on above:Performed By: #### RENAL, CBC #### [facility] [address] [place] [address] USANeutrophils (Bld) [#/Vol]9.8 10*3/uLHigh1.8-7.7The [facility] Physician GroupComment on above:Performed By: #### RENAL, CBC #### [facility] [address] [place] [address] USANeutrophils/100 WBC (Bld)83.4 %Normal.The [facility] Physician GroupComment on above:Performed By: #### RENAL, CBC #### [facility] [address] [place] [address] USANRBC%0.0 /100{WBC}Normal0-0.5The [facility] Comment on above:Performed By: #### RENAL, CBC #### [facility] [address] [place] [address] USAPlatelet mean volume (Bld) [Entitic vol]7.2 fLNormal 6.6-10.1The [facility] Physician GroupComment on above:Performed By: #### RENAL, CBC #### [facility] [address] [place] [address] USAPlatelets (Bld) [#/Vol]170 10*3/wKIpcmru807-905Ajh [facility] Physician GroupComment on above:Performed By: #### RENAL, CBC #### [facility] [address] [place] [address] USARBC (Bld) [#/Vol]3.64 10*6/uLLow3.90-5.60The [facility] Physician GroupComment on above:Performed By: #### RENAL, CBC #### [facility] [address] [place] [address] USAWBC (Bld) [#/Vol]11.7 10*3/uLHigh4.1-10.5The [facility] Physician GroupComment on above:Performed By: #### RENAL, CBC #### [facility] [address] [place] [id number] USAECG 12 lead ECGon 49-60-3876ZRF 12 lead ECGFAYETTE COUNTY [facility] Main [place] [address] [place] [address] Electrocardiograph Report Signed Patient: Delano Oliver MR#: [id number] [birth year] : 1940 Acct:[id number] Age/Sex: 84 / M ADM Date: 12/21/24 Loc: Room: [address] [place] [address] Type: ADM IN Attending Dr: Jaye Jorgensen [...] detected Abnormal ECG Confirmed by Krysten Bowers ([id number]) on 12/22/2024 9:01:16 PM Referred By: Electronically Signed By: Krysten Bowers Transcribed By: MUS Signed By Krysten Bowers MD 2101NormJay [facility] CenterActivated partial thromboplastin time (aPTT) in platelet poor plasma by coagulation aon 35-20-6778jJNY Coag (PPP) [Time]Activated partial thromboplastin time (aPTT) in platelet poor plasma by coagulation a22.3-36.2FCleveland Clinic Union HospitalBasophils Auto (Bld) [#/Vol]on 93-78-2460Ccocsuzgv (Bld) [#/Vol]Automated basophil count0.0-0.1 [facility] CampusBasophils/100 WBC Auto (Bld)on 12-21-2024 Basophils/100 WBC (Bld)Automated basophil %0.2-2.0[facility] CampusEosinophils/100 WBC Auto (Bld)on 71-76-8248Ypklvmtpcpj/100 WBC (Bld) Automated eosinophil %0.9-7.0[facility] CampusErythrocyte distribution width Auto (RBC) [Ratio]on 38-33-6673Jkrwexdsknq distribution width (RBC) [Ratio]Erythrocyte distribution width [Ratio] by Automated count11.0-15.0 [facility] CampusEstimated glomerular filtration rate (GFR) non- Americanon 94-56-1031WRT/1.73 sq M.predicted among non-blacks MDRD (S/P/Bld) [Vol rate/Area]Estimated glomerular filtration rate (GFR) non- AmericanLow>=60 mL/min/1.73m 2FCleveland Clinic Union HospitalGlobulin Calc (S) [Mass/Vol]on 82-74-2857Ewcfgsrr (S) [Mass/Vol]Serum globulin measurement by calculation (mass/volume)[facility] CampusHematocrit Auto (Bld) [Volume fraction]on 03-81-6077Urstjahyhz (Bld) [Volume fraction]Hematocrit [Volume Fraction] of Blood by Automated acfhgElh44.0-54.0[facility] CampusHemoglobin [Mass/volume] in Bloodon 08-79-9283Tipvtwmzto (Bld) [Mass/Vol]Hemoglobin [Mass/volume] in ZhryrOmc27.0-18.0[facility] CampusINR in Platelet poor plasma by Coagulation assayon 46-23-4013WAE Coag (PPP) [Relative time]INR in Platelet poor plasma by Coagulation assay [facility] CampusComment on above:DESIRED INR:2.0-3.0 CONDITIONS NOT LISTED BELOW2.5-3.5 FOR PROSTHETIC HEART VALVE REPLACEMENT2.5-3.5 RECURRENT THROMBOSISLaboratory - Chemistry and Chemistry - challengeon 18-02-4830Yeperxu [Mass/Vol]3.7 g/dL3.4-5.0[facility] CampusALP [Catalytic activity/Vol]110 U/Y79-044OewdrlaclSumma Health Akron CampusALT [Catalytic activity/Vol]22 U/W65-50QgnzpgxpaSumma Health Akron CampusAST [Catalytic activity/Vol]19 U/O99-43RsuvtyvnxSumma Health Akron CampusBilirubin [Mass/Vol]0.5 mg/dL0.2-1.0[facility] CampusCalcium [Mass/Vol]8.7 mg/dL 8.5-10.1FC[facility] Union HospitalChloride [Moles/Vol]102 mmol/L98-107 [facility] CampusCO2 [Moles/Vol]30.8 mmol/L21.0-32.0[facility] CampusCreatinine [Mass/Vol]3.27 mg/dLHigh0.70-1.30[facility] CampusGFR/1.73 sq M.predicted MDRD (S/P/Bld) [Vol rate/Area]22 mL/min/{1.73_m2}Low>=60 mL/min/1.73m 2FC[facility] Union HospitalGlucose [Mass/Vol]101 mg/fA15-334HzkhyczoqSumma Health Akron CampusPotassium [Moles/Vol] 3.7 mmol/L3.5-5.1FC[facility] HospitalProtein [Mass/Vol]7.3 g/dL 6.4-8.2FCoshocton Regional Medical Centerodium [Moles/Vol]145 mmol/B444-038 [facility] CampusUrea nitrogen [Mass/Vol]68.0 mg/dLHigh7.0-18.0 [facility] CampusUrea nitrogen/Creatinine [Mass ratio]20.8 mg/mg [facility] CampusLaboratory - Hematology and Cell countson 68-54-7520Oaslypvm granulocytes/100 WBC (Bld)0.9 %High0.0-0.5FCleveland Clinic Union HospitalLeukocytes [#/volume] corrected for nucleated erythrocytes in Blood by Automated counon 97-41-6469DSA corrected for nucl RBC Auto (Bld) [#/Vol]Leukocytes [#/volume] corrected for nucleated erythrocytes in Blood by Automated coun4.0-11.0[facility] CampusLymphocytes Auto (Bld) [#/Vol]on 49-15-7526Oumuteocvmd (Bld) [#/Vol]Lymphocytes [#/volume] in Blood by Automated count1.2-3.8[facility] CampusLymphocytes/100 WBC Auto (Bld)on 58-53-5190Evcpvnqgzza/100 WBC (Bld)Lymphocytes/100 leukocytes in Blood by Automated hycrkOxw04.5-60.0[facility] HospitalH Auto (RBC) [Entitic mass]on 31-95-0017BGV (RBC) [Entitic mass]MCH [Entitic mass] by Automated count25.9-34.0[facility] CampusMCHC Auto (RBC) [Mass/Vol]on 04-28-4244WUIP (RBC) [Mass/Vol]MCHC [Mass/volume] by Automated count29.9-35.2FC[facility] HospitalMCV Auto (RBC) [Entitic vol]on 79-87-4211LRB (RBC) [Entitic vol]MCV [Entitic volume] by Automated countHigh 80.0-94.0[facility] CampusMonocytes Auto (Bld) [#/Vol]on 54-75-0244Agnunnuge (Bld) [#/Vol]Automated blood monocyte count0.3-0.8[facility] CampusMonocytes/100 WBC Auto (Bld)on 88-26-6572Hkjeyhtls/100 WBC (Bld)Automated monocyte %1.7-12.0[facility] Neutrophils Auto (Bld) [#/Vol]on 58-77-6888Ujaggktcfom (Bld) [#/Vol]Neutrophils [#/volume] in Blood by Automated count1.4-6.5[facility] Neutrophils/100 WBC Auto (Bld)on 58-71-1593Jnmorhnbjxp/100 WBC (Bld)Automated neutrophil %43.0-75.0[facility] CampusNo Panel Informationon 59-60-4353Wnmccrkzefh # (Auto)0.3 10 3/uL0.0-0.7FC[facility] Union HospitalImmature Granulocyte # (Auto)0.07 10 3/uLHigh0.00-0.03[facility] CampusTroponin I High Zisvqztadzt67.8 pg/mL4.0-76.1FCleveland [facility] Union HospitalComment on above:CUT-OFF POINTS HAVE BEEN ESTABLISHED BASED ON THE FOURTHUNIVERSAL DEFINITION OF MYOCARDIAL INFARCTION. THE UPPERREFERENCE LIMIT (URL) OF TROPONIN, DEFINED THE 99THPERCENTILE OF cTnI DISTRIBUTION IN A REFERENCE POPULATION,HAS BEEN CONFIRMED THE DECISION THRESHOLD FOR MIDIAGNOSIS.99TH PERCENTILE = 76.2 PG/MLNOTE: HIGH-SENSITIVITY TROPONIN ASSAY IS NOT INTENDED TO BEUSED IN ISOLATION BUT SHOULD BE INTERPRETED IN CONJUNCTIONWITH OTHER DIAGNOSTIC AND CLINICAL INFORMATION.25.8 pg/mL4.0-76.1 [facility]3.7 g/dL3.4-5.0[facility]0.3 10 3/uL0.0-0.7FC[facility] Hospital110 U/M92-879KztoqtlerSumma Health Akron Campus22 U/Q72-19BqnckklyxSumma Health Akron Campus19 U/L15-37 [facility]20.8[facility]0.07 10 3/uLHigh0.00-0.03[facility]68.0 mg/dLHigh7.0-18.0 [facility]0.9 %High0.0-0.5FC[facility]8.7 mg/dL8.5-10.1[facility]102 mmol/L98-107 [facility]30.8 mmol/L21.0-32.0[facility]3.27 mg/dLHigh0.70-1.30[facility]22Low>=60 mL/min/1.73m 2[facility]101 mg/yS24-585AsbshhycuSumma Health Akron Campus3.7 mmol/L3.5-5.1FC[facility] Hospital145 mmol/L 136-145[facility]0.5 mg/dL0.2-1.0[facility]7.3 g/dL6.4-8.2FC[facility] Union HospitalPlatelet mean volume Auto (Bld) [Entitic vol]on 96-53-9596Hhzdyesj mean volume (Bld) [Entitic vol]Platelet mean volume [Entitic volume] in Blood by Automated countLow9.5-13.5 [facility] CampusPlatelets Auto (Bld) [#/Vol]on 12-21-2024 Platelets (Bld) [#/Vol]Platelets [#/volume] in Blood by Automated asbye160-131 [facility] CampusProthrombin time (PT)on 47-31-6573ZZ Coag (PPP) [Time]Prothrombin time (PT)9.0-11.6FCleveland Clinic Union HospitalRBC Auto (Bld) [#/Vol]on 26-46-6854XWK (Bld) [#/Vol]Erythrocytes [#/volume] in Blood by Automated countLow4.70-6.10[facility] Northerum or plasma albumin/globulin mass ratioon 79-82-8330Phvvyzc/Globulin [Mass ratio]Serum or plasma albumin/globulin mass ratioSelect Medical Specialty Hospital - [facility] Northerum or plasma anion gap determinationon 20-28-9210Ohicy gap [Moles/Vol]Serum or plasma anion gap determinationSumma Health Akron CampusLaboratory - Chemistry and Chemistry - challengeon 84-30-5890Lako T4 [Mass/Vol]0.82 ng/dL0.76-1.46 [facility] CampusTSH Qn23.918 m[IU]/LHigh0.358-3.740[facility] CampusNo Panel Informationon 91-08-0502Grnqy Mfxpnkuxzroajzzt97 ng/aRLzblnltl30-271WdqoypregSumma Health Akron CampusComment on above:Performed at: - [facility] [id number] Director: Nathan Munoz PhD, Phone: [phone] ng/jTSoohwqha17-457ZedpxkxdtSumma Health Akron Campus0.82 ng/dL0.76-1.46[facility]23.918 u[iU]/mLHigh0.358-3.740[facility] CampusFollow-Upon 11-13-2024 Follow-[id number] Delano Oliver Xochilt 1940 M Date Provider Department Center 11/13/2024 ENRRIQUE TAVAREZ Batsheva Hawa Family History Problem Relation Age of Onset Diabetes Mother Heart disease Father Glaucoma Brother Diabetes Maternal Grandmother Clotting disorder Other Family Status - Relation Status Age at Mother Father Brother Maternal Grandmother Other Level of Service:55614 HI OFFICE/OUTPATIENT ESTABLISHED LOW [facility] 20 MIN Reason for Visit and Comments: Atrial Fibrillation [80] Atrial Flutter [101]NormalUnUniversity Hospitals Ahuja Medical CenterLaboratory - Chemistry and Chemistry - challengeon 20-85-8862Ualk T4 [Mass/Vol]0.89 ng/dL 0.76-1.46[facility] CampusTS Qn28.632 m[IU]/LHigh0.358-3.740 [facility] CampusNo Panel Informationon 53-02-1771Ixyus Gidzhmuvkhxjysjl95 ng/yNSqbgatdc84-089VdcwqqmstSumma Health Akron CampusComment on above:Performed at: [employer] [address] [id number] Director: Nathan Munoz PhD, Phone: [phone] ng/dLAbnormal 71-180[facility]28.632 u[iU]/mLHigh0.358-3.740[facility]0.89 ng/dL0.76-1.46[facility] CampusHPon 57-71-0677CSRG Electrophysiology Consult Note Reason for visit: Afib and dilated CMP. 10/17/24 Pt here for DCCV. Device check reveals atrial flutter with V pacing, 09/10/24 Patient underwent [employer]-D upgrade procedure on 06/12/2023. Subsequent echocardiogram in [...] infrahisian disease. He was brought back to [facility] on 02/12/2020 due to what was discussed [...] failure) (CMS/HCC) Chronic k (more content not included)...[facility] for RehabilitationNURSNOTEon 99-69-8826EFOOXBQYUI educated pt and on discharge instructions. RN encouraged pt to voice any questions or concerns. Pt verbalizes no questions or concerns at this time. Pt was wheeled off unit with all belongings.[facility] for RehabilitationEstimated glomerular filtration rate (GFR) non- Americanon 23-01-3310UUL/1.73 sq M.predicted among non-blacks MDRD (S/P/Bld) [Vol rate/Area]Estimated glomerular filtration rate (GFR) non- AmericanLow>=60 mL/min/1.73m 2FC[facility] HospitalLaboratory - Chemistry and Chemistry - challengeon 40-23-1010Gwvgdte [Mass/Vol]8.6 mg/dL8.5-10.1FC[facility] Union HospitalChloride [Moles/Vol]103 mmol/Z54-732HxfodpooqSumma Health Akron CampusCO2 [Moles/Vol]32.0 mmol/L21.0-32.0[facility] CampusCreatinine [Mass/Vol]3.07 mg/dLHigh0.70-1.30[facility] CampusGFR/1.73 sq M.predicted MDRD (S/P/Bld) [Vol rate/Area]24 mL/min/{1.73_m2} Low>=60 mL/min/1.73m 2FC[facility] HospitalGlucose [Mass/Vol]124 mg/zIRyza99-322MadcrnmorSumma Health Akron CampusMagnesium [Mass/Vol]2.4 mg/dL 1.8-2.4FCleveland [facility] Union HospitalPotassium [Moles/Vol]3.7 mmol/L3.5-5.1 [facility] Northodium [Moles/Vol]143 mmol/U851-775MewjgwobwSumma Health Akron CampusUrea nitrogen [Mass/Vol]69.0 mg/dLHigh7.0-18.0[facility] CampusUrea nitrogen/Creatinine [Mass ratio]22.5 mg/mgSelect Medical Specialty Hospital [facility] Northerum or plasma anion gap determinationon 98-01-1156Dncks gap [Moles/Vol]Serum or plasma anion gap determinationSumma Health Akron CampusOrders Onlyon 05-88-1216Eqxboq [id number] Delano Oliver 1940 M Date Provider Department Center 10/10/2024 [facility] Family History Problem Relation Age of Onset Diabetes Mother Heart disease Father Glaucoma Brother Diabetes Maternal Grandmother Clotting disorder Other Family Status - Relation Status Age at Mother Father Brother Maternal Grandmother OtherNormalUniversity of Texas Health [facility]le36on 01-95-824169Dqakpqeur echo result from 09/19/2024: Per Dr. Degroot - EF has improved. Will repeat echo in 6 months. Order entered and faxed to [facility]. Patient and his informed.[facility] RehabilitationOffice Visiton 27-09-8168Qdxrrd-up [id number] Delano Oliver Xochilt 1940 M Date Provider Department Center 09/10/2024 TRANG LOPEZ [facility] Family History Problem Relation Age of Onset Diabetes Mother Heart disease Father Glaucoma Brother Diabetes Maternal Grandmother Clotting disorder Other Family Status - Relation Status Age at Mother Father Brother Maternal Grandmother Other Level of Service:02223 HI OFFICE/OUTPATIENT ESTABLISHED LOW MDM 20 [facility] HospitalGlucose Poct Glucometerson 03-73-0437Vduxett3 Glu2: Cleaned MeterNormJay Hospital Physician GroupComment on above:Result Comment: PERFORMED BY: [place] [address] PATHOLOGIST VICE PRESIDENT OF MARKETING TRU UMANZOR M.D.Performed By: #### RENAL, CBC #### [facility] [address] [place] [address] USAGlucose [Mass/Vol]112 mg/dLPhysicians Regional Medical Center - Pine Ridge Physician GroupComment on above:Result Comment: Random Glucose Reference Range is dependent on time and content of last meal. Glucose of more than 200 mg/dL in a nonstressed, ambulatory subject supports the diagnosis of Diabetes Mellitus.Performed By: #### RENAL, CBC #### [facility] [address] [place], [place] [address] USALon 08-22-2024L Specimen: [id number] Received: 08/22/24 Status: ДМИТРИЙ Hurd Num: [id number] Spec Type: Surgical Subm Dr: Ramesh Rascon MD Tissues: A Colon Biopsy (TRANSVERSEPOLYPS) B Colon Biopsy (DESCENDING POLYPS) C Colon Biopsy (SIGMOID POLYPS) Procedures: HE/6, Gross/Micro L4/3 Age/ Patient Sex Location Account Attending Physician Delano Oliver /M [id number] Ramesh Rascon MD SPEC NUM: [id number] RECD: 08/22/24 STATUS: ДМИТРИЙ JHONNY NUM: [id number] [place]: 08/22/24- [facility] DR: Ramesh Rascon MD ENTERED: 08/22/[address]: SPEC TYPE: Surgical DEPT: S ENTERED BY: [id number] RECV BY: [id number] ORDERED: HE/6, Gross/Micro L4/3 ORDERED: HE/6, Gross/Micro L4/3 Pathological Diagnosis A. Transverse colon polyps: Fragments of tubular adenomas. B. Descending colon polyps: Tubular adenomas (4) Hyperplastic polyp (1). C. Sigmoid colon polyps: Hyperplastic polyps. Clinical Information History colon polyps Gross Description A. Received in formalin labeled transverse polyps are 3 staley-aprr, focally erythematous, friable, 0.2, 0.3 and 0.3 cm polypoid fragments. The specimen is entirely submitted in a single cassette. (1, ns, [id number] A) JG B received in formalin labeled descending polyps are 5 staley-parr, focally erythematous, friable, 0.2 to 0.5 cm polypoid fragments. The specimen is entirely submitted in a single cassette. (1, ns, [id number] B) JG C. Received in formalin labeled sigmoid polyps are 4 staley-parr, focally erythematous, Specimen: [id number] Received: 08/22/24 Status: ДМИТРИЙ Adlerjeramy Num: [id number] Spec Type: Surgical Subm Dr: Ramesh Rascon MD Tissues: A Colon Biopsy (TRANSVERSEPOLYPS) B Colon Biopsy (DESCENDING POLYPS) C Colon Biopsy (SIGMOID POLYPS) Procedures: HE/6, Gross/Micro L4/3 Patient: Delano Oliver [id number] (Continued) Specimen: [id number] Received: 08/22/24 (Continued) Gross Description (Continued) Signed (signature on file) Logan Ruiz MD 08/23/24 0926 Specimen: [id number] Received: 08/22/24 Status: ДМИТРИЙ Adlerjeramy Num: [id number] Spec Type: Surgical Subm Dr: Ramesh Rascon MD Tissues: A Colon Biopsy (TRANSVERSEPOLYPS) B Colon Biopsy (DESCENDING POLYPS) C Colon Biopsy (SIGMOID POLYPS) Procedures: JEFF/Mehdi, Gross/Micro L4/3 Patient: Delano Oliver [id number] (Continued) Specimen: [id number] Received: 08/22/24 (Continued) Gross Description (Continued) friable, 0.2 to 0.4 cm polypoid fragments. The specimen is entirely submitted in a single cassette. (1, ns, [id number] C) CPT Codes 88 305 x 3 Specimen: [id number] Received: 08/22/24 Status: ДМИТРИЙ Hurd Num: [id number] Spec Type: Surgical Subm Dr: Ramesh Rascon MD Tissues: A Colon Biopsy (TRANSVERSEPOLYPS) B Colon Biopsy (DESCENDING POLYPS) C Colon Biopsy (SIGMOID POLYPS) Procedures: HE/Mehdi, Gross/Micro L4/3 Patient: Delano Oliver [id number] (Continued) Signed (signature on file) Logan Ruiz MD 08/23/24 0926[facility] Physician GroupAlanine aminotransferase [Enzymatic activity/volume] in Serum or PlasmaOrdered By: Chivo Keller on 02-22-2024 ALT [Catalytic activity/Vol]15 U/L7-52[facility] CampusAlbumin [Mass/volume] in Serum or PlasmaOrdered By: Chivo Keller on 02-22-2024 Albumin [Mass/Vol]3.9 g/dL2.9-4.4FC[facility] HospitalAlbumin [Mass/volume] in Serum or Plasma by Bromocresol green (BCG) dye binding metho Ordered By: Chivo Keller on 49-37-7279Ujjkxmi BCG dye [Mass/Vol]4.4 g/dL 3.5-5.7FCleveland Clinic Union HospitalAlkaline phosphatase [Enzymatic activity/volume] in Serum or PlasmaOrdered By: Chivo Keller on 02-22-2024 ALP [Catalytic activity/Vol]100 U/B76-352ZovgzzjkwSumma Health Akron Campus Aspartate aminotransferase [Enzymatic activity/volume] in Serum or PlasmaOrdered By: Chivo Keller on 38-83-3295BPZ [Catalytic activity/Vol]18 U/L13-39 [facility] CampusBasophils Auto (Bld) [#/Vol]Ordered By: Chivo Keller on 26-29-0325Yvinhrcbn (Bld) [#/Vol]0.0 10*3/uL0.0-0.2FC[facility] Clinic Union HospitalBasophils (Bld) [#/Vol]Automated basophil count0.0-0.2 [facility] CampusBasophils/100 WBC Auto (Bld)Ordered By: Chivo Keller on 11-07-3661Kopqjcofc/100 WBC (Bld)0.5 %.[facility] CampusBasophils/100 WBC (Bld)Automated basophil %.[facility] CampusBilirubin.total [Mass/volume] in Serum or PlasmaOrdered By: Chivo Keller on 42-15-2610Ugmbscnqq [Mass/Vol]0.7 mg/dL0.3-1.0[facility] CampusCalcium [Mass/volume] in Serum or PlasmaOrdered By: Chivo Keller on 83-74-7142Upvzqye [Mass/Vol]9.4 mg/dL8.6-10.3FC[facility] HospitalCarbon dioxide, total [Moles/volume] in Serum or PlasmaOrdered By: Chivo Keller on 35-00-3033RJ1 [Moles/Vol]33.2 mmol/LHigh21.0-31.0[facility] CampusChloride [Moles/volume] in Serum or PlasmaOrdered By: Chivo Keller on 84-93-8589Ltvfixpz [Moles/Vol]100 mmol/M48-529EcnzypwddSumma Health Akron CampusCreatinine [Mass/volume] in Serum or PlasmaOrdered By: Chivo Keller on 94-99-5079Hknvyzqrmc [Mass/Vol]2.38 mg/dLHigh0.70-1.30 [facility] CampusEosinophils Auto (Bld) [#/Vol]Ordered By: Chivo Keller on 00-12-6116Ghtcgxfdryx (Bld) [#/Vol]0.3 10*3/uL0.0-0.45 [facility] CampusEosinophils (Bld) [#/Vol]Automated eosinophil count0.0-0.45[facility] CampusEosinophils/100 WBC Auto (Bld) Ordered By: Chivo Keller on 23-61-4687Ciputekkmml/100 WBC (Bld)3.8 %. [facility] CampusEosinophils/100 WBC (Bld)Automated eosinophil % .[facility] CampusErythrocyte distribution width Auto (RBC) [Ratio]Ordered By: Chivo Keller on 90-03-6440Uowlcwuvrtl distribution width (RBC) [Ratio]14.6 %12.0-14.8[facility] CampusErythrocyte distribution width (RBC) [Ratio]Erythrocyte distribution width [Ratio] by Automated count12.0-14.8[facility] CampusFerritin [Mass/volume] in Serum or PlasmaOrdered By: Chivo Keller on 93-48-7291Mvoiwgpm [Mass/Vol] 236.8 ng/mL23.9-336.2FC[facility] Union HospitalFolate [Mass/volume] in Serum or PlasmaOrdered By: Chivo Keller on 66-40-6086Yxqpmq [Mass/Vol]36.0 ng/mL>5.9[facility] CampusComment on above:Folate reference range: >5.9 ng/mlThe WHO technical consultation on folate and vitamin m36bipnfpv ncies has determined that folate concentrations lessthan 4 ng/ml are considered deficient.Globulin Calc (S) [Mass/Vol]Ordered By: Chivo Keller on 62-32-7236Fdvtongy (S) [Mass/Vol]3.0 g/dLSumma Health Akron Campus Glucose [Mass/volume] in Serum or PlasmaOrdered By: Chivo Keller on 98-94-0228Qusyduv [Mass/Vol]129 mg/sVCidx84-027NddmyaroeSumma Health Akron Campus Comment on above:ADA recommended reference rangeRandom Glucose Reference Range is dependent on time and content of last meal. Glucose of more than 200 mg/dL in a nonstressed, ambulatory subject supports the diagnosisof Diabetes Mellitus. Hematocrit Auto (Bld) [Volume fraction]Ordered By: Chivo Keller on 88-25-1597Khfiocjseu (Bld) [Volume fraction]38.1 %Low38.8-50.0[facility] CampusHematocrit (d) [Volume fraction]Hematocrit [Volume Fraction] of Blood by Automated ylojhPbm41.8-50.0[facility] CampusHemoglobin [Mass/volume] in BloodOrdered By: Chivo Keller on 69-95-5103Hkpggbzphx (Bld) [Mass/Vol]12.9 g/dLLow13.0-17.0[facility] CampusHemoglobin (Bld) [Mass/Vol]Hemoglobin [Mass/volume] in ErrayNio60.0-17.0[facility] CampusIgA [Mass/volume] in Serum or PlasmaOrdered By: Chivo Keller on 79-19-5647NhD [Mass/Vol]179 mg/aM27-708MbkhvwidhSumma Health Akron CampusIgG [Mass/volume] in Serum or PlasmaOrdered By: Chivo Keller on 09-84-7274MbT [Mass/Vol]987 mg/nL007-1252TuhudmfmpSumma Health Akron CampusIgM [Mass/volume] in Serum or PlasmaOrdered By: Chivo Keller on 91-58-8642OrW [Mass/Vol]143 mg/pU22-684BoebopqbqSumma Health Akron CampusComment on above:Performed at: [facility] [id number] Director: Nathan Munoz PhD, Phone: [phone] light chains.kappa.free [Mass/volume] in SerumOrdered By: Chivo Keller on 75-86-1018Jrdyiorehwdyzx light chains.kappa.free (S) [Mass/Vol]56.1 mg/LHigh3.3-19.4FC[facility] Union HospitalImmunoglobulin light chains.kappa.free/Immunoglobulin light chains.lambda.free [MassOrdered By: Chivo Keller on 02-22-2024 Immunoglobulin light chains.kappa.free/Immunoglobulin light chains.lambda.free (S) [Mass ratio]1.510.26-1.65[facility] CampusComment on above: Performed at: [facility] [id number] Director: Nathan Munoz PhD, Phone: [phone] light chains.lambda.free [Mass/volume] in Serum or PlasmaOrdered By: Chivo Keller on 39-79-4770Yyjdmfvdpacjzw light chains.lambda.free [Mass/Vol]37.2 mg/LHigh 5.7-26.3FC[facility] Union HospitalIron [Mass/volume] in Serum or Plasma Ordered By: Chivo Keller on 28-85-3278Fsnb [Mass/Vol]85 ug/rC59-707 [facility] CampusIron binding capacity [Mass/volume] in Serum or PlasmaOrdered By: Chivo Keller on 48-91-9507Zwsu binding capacity [Mass/Vol]281 ug/aR917-517KcyndmhwtSumma Health Akron CampusIron saturation [Mass Fraction] in Serum or PlasmaOrdered By: Chivo Keller on 44-54-3613Xfyz saturation [Mass fraction]30.2 %20-50[facility] CampusLeukocytes [#/volume] corrected for nucleated erythrocytes in Blood by Automated coun Ordered By: Chivo Keller on 58-78-2074JPJ corrected for nucl RBC Auto (Bld) [#/Vol]7.5 10*3/uL4.1-10.5FC[facility] Clinic Union HospitalWBC corrected for nucl RBC Auto (Bld) [#/Vol]Leukocytes [#/volume] corrected for nucleated erythrocytes in Blood by Automated coun4.1-10.5[facility] Lymphocytes Auto (Bld) [#/Vol]Ordered By: Chivo Keller on 02-22-2024 Lymphocytes (Bld) [#/Vol]1.4 10*3/uL1.00-4.8[facility] Lymphocytes (Bld) [#/Vol]Lymphocytes [#/volume] in Blood by Automated count 1.00-4.8[facility] CampusLymphocytes/100 WBC Auto (Bld)Ordered By: Chivo Keller on 76-68-5529Gsqmtieqafb/100 WBC (Bld)19.1 %.[facility] CampusLymphocytes/100 WBC (Bld)Lymphocytes/100 leukocytes in Blood by Automated count.[facility] Auto (RBC) [Entitic mass]Ordered By: Chivo Keller on 77-69-6676GXT (RBC) [Entitic mass]31.6 pg27.5-35.2FMedina HospitalH (RBC) [Entitic mass] MCH [Entitic mass] by Automated count27.5-35.2[facility] MCHC Auto (RBC) [Mass/Vol]Ordered By: Chivo Keller on 77-95-4242IFTC (RBC) [Mass/Vol]33.9 g/dL32.5-35.6FMedina HospitalHC (RBC) [Mass/Vol]MCHC [Mass/volume] by Automated count32.5-35.6FC[facility] Union HospitalMCV Auto (RBC) [Entitic vol]Ordered By: Chivo Keller on 14-69-6955QKY (RBC) [Entitic vol]93.2 fL83.5-101Sum[facility] CampusMCV (RBC) [Entitic vol]MCV [Entitic volume] by Automated count83.5-101 [facility] CampusMonocytes Auto (Bld) [#/Vol]Ordered By: Chivo Keller on 17-81-1339Fmeglzaae (Bld) [#/Vol]0.8 10*3/uL0.0-0.8[facility] CampusMonocytes (Bld) [#/Vol]Automated blood monocyte count 0.0-0.8[facility] CampusMonocytes/100 WBC Auto (Bld)Ordered By: Chivo Keller on 91-03-2373Qiobrcznv/100 WBC (Bld)10.0 %.[facility] CampusMonocytes/100 WBC (Bld)Automated monocyte %.[facility] CampusNeutrophils Auto (Bld) [#/Vol]Ordered By: Chivo Keller on 57-83-7607Jobgqjkvrfz (Bld) [#/Vol]5.0 10*3/uL1.8-7.7FCleveland Clinic Union HospitalNeutrophils (Bld) [#/Vol]Neutrophils [#/volume] in Blood by Automated count1.8-7.7FCleveland Clinic Union HospitalNeutrophils/100 WBC Auto (Bld) Ordered By: Chivo Keller on 38-38-7938Jviefrpzmts/100 WBC (Bld)66.6 %. [facility] CampusNeutrophils/100 WBC (Bld)Automated neutrophil % .[facility] CampusNo Panel InformationOrdered By: Chivo Keller on 99-26-8177Kqxuomv Electrophoresis M-SpikeNot observed g/dLNot ObservedSumma Health Akron CampusProtein Electrophoresis NoteSee comment .[facility] CampusComment on above:Protein electrophoresis scan will follow via computer,mail, or bisque cleaner delivery.Performed at: [address] [id number] Director: Nathan Munoz PhD, Phone: [phone] ImmunofixationSee comment.[facility] CampusComment on above:No monoclonality detected.Not observed g/dLNot Observed [facility] CampusEstimated GFR (CKD-EPI)26.711 mL/MinSumma Health Akron CampusPharmacy Creatinine Clearance (Chem29.06[facility] CampusNucleated erythrocytes [Presence] in Blood by Automated countOrdered By: Chivo Keller on 95-63-0281Ljzdlinlz RBC Auto Ql (Bld)0.0 /100{WBC}0-0.5FCleveland Clinic Union HospitalNucleated RBC Auto Ql (Bld) Nucleated erythrocytes [Presence] in Blood by Automated count0-0.5FCleveland Clinic Union HospitalPlatelet mean volume Auto (Bld) [Entitic vol]Ordered By: Chivo Keller on 70-28-4604Ohzryccd mean volume (Bld) [Entitic vol]7.6 fL 6.6-10.1FCleveland Clinic Union HospitalPlatelet mean volume (Bld) [Entitic vol]Platelet mean volume [Entitic volume] in Blood by Automated count6.6-10.1 [facility] CampusPlatelets Auto (Bld) [#/Vol]Ordered By: Chivo Keller on 18-27-6880Mxnnjmoqn (Bld) [#/Vol]196 10*3/cP784-495PhqoqalwlSumma Health Akron CampusPlatelets (Bld) [#/Vol]Platelets [#/volume] in Blood by Automated tnqec952-974SxivhwlkxSumma Health Akron CampusPotassium [Moles/volume] in Serum or PlasmaOrdered By: Chivo Keller on 63-73-0465Tixumwuzu [Moles/Vol]3.8 mmol/L3.5-5.1FC[facility] Union HospitalProtein [Mass/volume] in Serum or PlasmaOrdered By: Chivo Keller on 02-22-2024 Protein [Mass/Vol]6.8 g/dL6.0-8.5FCleveland Clinic Union HospitalProtein [Mass/Vol]7.4 g/dL6.4-8.9[facility] CampusRBC Auto (Bld) [#/Vol] Ordered By: Chivo Keller on 15-32-4433VSN (Bld) [#/Vol]4.09 10*6/uL 3.90-5.60[facility] CampusRBC (Bld) [#/Vol]Erythrocytes [#/volume] in Blood by Automated count3.90-5.60[facility] Serum free kappa light chain measurementOrdered By: Chivo Keller on 71-92-6562Bozemmumkwrqzh light chains.kappa.free (S) [Mass/Vol]Immunoglobulin light chains.kappa.free [Mass/volume] in SerumHigh3.3-19.4FCoshocton Regional Medical Centererum globulin measurement (mass/volume)Ordered By: Chivo Keller on 34-48-5610Cjeiklsb (S) [Mass/Vol]2.9 g/dL2.2-3.9[facility] CampusGlobulin (S) [Mass/Vol]Serum globulin measurement (mass/volume) 2.2-3.9[facility] Northerum immunofixation electrophoresis Ordered By: Chivo Keller on 91-68-5610Jqhee immunofixation electrophoresis See comment.[facility] Northerum immunoglobulin free kappa light chains/immunoglobulin free lambda light chainsOrdered By: Chivo Keller on 49-53-4999Ugudgcunxjdqyg light chains.kappa.free/Immunoglobulin light chains.lambda.free (S) [Mass ratio]Immunoglobulin light chains.kappa.free/Immunoglobulin light chains.lambda.free [Mass0.26-1.65 [facility] Northerum or plasma IgA measurement (mass/volume) Ordered By: Chivo Keller on 18-43-5824ZcJ [Mass/Vol]IgA [Mass/volume] in Serum or Wcnksk03-561QyyfyyfgxSelect Medical Specialty Hospital [facility] Northerum or plasma IgG measurement (mass/volume)Ordered By: Chivo Keller on 50-00-0493KcV [Mass/Vol]IgG [Mass/volume] in Serum or Uoobbl858-0505LqocjldpcSelect Medical [facility] Northerum or plasma IgM measurement (mass/volume)Ordered By: Chivo Keller on 72-41-7418NbP [Mass/Vol]IgM [Mass/volume] in Serum or Dpylur52-790 [facility] Northerum or plasma albumin measurement (mass/volume)Ordered By: Chivo Keller on 13-63-1804Fjribnq [Mass/Vol] Albumin [Mass/volume] in Serum or Plasma2.9-4.4FC[facility] Hospital Serum or plasma albumin/globulin mass ratioOrdered By: Chivo Keller on 23-25-8178Uuvzguv/Globulin [Mass ratio]1.3 {ratio}0.7-1.7FC[facility] Union HospitalAlbumin/Globulin [Mass ratio]Serum or plasma albumin/globulin mass ratio0.7-1.7FC[facility] Union HospitalAlbumin/Globulin [Mass ratio]1.5 {ratio}[facility] Northerum or plasma alpha 1 globulin measurement by electrophoresis (mass/volume)Ordered By: Chivo Keller on 47-70-1674Gbviy 1 globulin Elph [Mass/Vol]0.2 g/dL0.0-0.4FCleveland Clinic Union HospitalAlpha 1 globulin Elph [Mass/Vol]Serum or plasma alpha 1 globulin measurement by electrophoresis (mass/volume)0.0-0.4FCoshocton Regional Medical Centererum or plasma alpha 2 globulin measurement by electrophoresis (mass/volume)Ordered By: Chivo Keller on 93-86-5226Dmkqv 2 globulin Elph [Mass/Vol]0.8 g/dL0.4-1.0[facility] CampusAlpha 2 globulin Elph [Mass/Vol]Serum or plasma alpha 2 globulin measurement by electrophoresis (mass/volume)0.4-1.0[facility] Northerum or plasma anion gap determinationOrdered By: Chivo Keller on 35-60-9548Ukimk gap [Moles/Vol] 10.6 mmol/L6.0-15.0[facility] Northerum or plasma beta globulin measurement by electrophoresis (mass/volume)Ordered By: Chivo Keller on 11-01-3413Onae globulin Elph [Mass/Vol]0.9 g/dL0.7-1.3FCleveland Clinic Union HospitalBeta globulin Elph [Mass/Vol]Serum or plasma beta globulin measurement by electrophoresis (mass/volume)0.7-1.3FCoshocton Regional Medical Centererum or plasma gamma globulin measurement by electrophoresis (mass/volume)Ordered By: Chivo Keller on 58-82-1893Hwapf globulin Elph [Mass/Vol]1.0 g/dL0.4-1.8[facility] CampusGamma globulin Elph [Mass/Vol]Serum or plasma gamma globulin measurement by electrophoresis (mass/volume)0.4-1.8[facility] Northerum or plasma immunoglobulin free lambda light chains measurement (mass/volume)Ordered By: Chivo Keller on 12-90-3355Iemglckrglgzsz light chains.lambda.free [Mass/Vol]Immunoglobulin light chains.lambda.free [Mass/volume] in Serum or PlasmaHigh5.7-26.3FCoshocton Regional Medical Centererum total protein measurementOrdered By: Chivo Keller on 45-69-0718Wxokbmu [Mass/Vol]Protein [Mass/volume] in Serum or Plasma6.0-8.5FCoshocton Regional Medical Centerodium [Moles/volume] in Serum or PlasmaOrdered By: Chivo Keller on 02-22-2024 Sodium [Moles/Vol]140 mmol/B774-761VwhojxmemSumma Health Akron CampusTransferrin [Mass/volume] in Serum or PlasmaOrdered By: Chivo Keller on 02-22-2024 Transferrin [Mass/Vol]201 mg/gXPhh148-400PqvwfzpadSumma Health Akron CampusUrea nitrogen [Mass/volume] in Serum or PlasmaOrdered By: Chivo Keller on 41-62-6676Xooc nitrogen [Mass/Vol]59 mg/dLHigh7-25[facility] CampusVitamin B12 ser/plasOrdered By: Chivo Keller on 42-57-7470Rmfhircja (Vitamin B12) [Mass/Vol]649 pg/sP940-954EbzknchfsSumma Health Akron CampusWBC Auto (Bld) [#/Vol]Ordered By: Chivo Keller on 70-22-1407KVB (Bld) [#/Vol] 7.5 10*3/uL4.1-10.5FCleveland Clinic Union HospitalWBC (Bld) [#/Vol]Leukocytes [#/volume] in Blood by Automated count4.1-10.5FC[facility] Hospital Automated urine specific gravity by refractometryon 88-80-0910Rralssex gravity Refractometry automated (U) [Rel density]1.0101.005-1.025[facility] CampusBilirubin Auto test strip (U) [Mass/Vol]on 72-11-3817Bojdmllsi (U) [Mass/Vol]NegativeNEGATIVESumma Health Akron CampusColor Auto (U)on 72-62-7789Jmmrn (U)LT. YELLOWYELLOWSumma Health Akron CampusErythrocyte distribution width Auto (RBC) [Ratio]on 99-82-8429Sjjjwggieom distribution width (RBC) [Ratio]13.5 %11.0-15.0[facility] CampusEstimated glomerular filtration rate (GFR) non- Americanon 25-61-5407KUC/1.73 sq M.predicted among non-blacks MDRD (S/P/Bld) [Vol rate/Area]23 mL/min/{1.73_m2} Low>=60[facility] CampusGlucose [Mass/volume] in Urine by Test stripon 56-24-9825Muumnga Test strip (U) [Mass/Vol]NegativeNEGATIVESumma Health Akron CampusHematocrit Auto (Bld) [Volume fraction]on 02-01-2024 Hematocrit (Bld) [Volume fraction]37.0 %Low42.0-54.0[facility] CampusHemoglobin [Mass/volume] in Bloodon 31-38-8953Iarcgoqgcy (Bld) [Mass/Vol] 11.9 g/dLLow14.0-18.0[facility] CampusKetones Auto test strip (U) [Mass/Vol]on 97-72-9075Wyybahe (U) [Mass/Vol]NegativeNEGATIVESumma Health Akron CampusLaboratory - Chemistry and Chemistry - challengeon 14-74-0579Lnjaxgt [Mass/Vol]9.1 mg/dL8.5-10.1FC[facility] Chloride [Moles/Vol]101 mmol/T72-016GyoycatnoSumma Health Akron CampusCO2 [Moles/Vol]31.5 mmol/L21.0-32.0[facility] CampusCreatinine [Mass/Vol]2.66 mg/dLHigh0.70-1.30[facility] CampusFree T4 [Mass/Vol]1.03 ng/dL0.76-1.46[facility] CampusGFR/1.73 sq M.predicted MDRD (S/P/Bld) [Vol rate/Area]28 mL/min/{1.73_m2}Low>=60[facility] CampusGlucose [Mass/Vol]128 mg/eOVcpn79-232TyecadqhmSumma Health Akron CampusMagnesium [Mass/Vol]2.4 mg/dL1.8-2.4FCleveland [facility] Union HospitalPotassium [Moles/Vol]3.8 mmol/L3.5-5.1[facility] Sodium [Moles/Vol]141 mmol/J915-532WzymmprvmSumma Health Akron CampusTSH Qn8.924 m[IU]/LHigh0.358-3.740[facility] CampusUrea nitrogen [Mass/Vol] 55.0 mg/dLHigh7.0-18.0[facility] CampusUrea nitrogen/Creatinine [Mass ratio]20.7 mg/mgSumma Health Akron CampusLaboratory - Urinalysison 55-16-4984Cqyglqj (U) [Mass/Vol]25.1 mg/dLHigh<=11.9[facility] CampusLeukocytes [#/volume] corrected for nucleated erythrocytes in Blood by Automated counon 60-83-1109KOK corrected for nucl RBC Auto (Bld) [#/Vol]8.0 10 3/uL4.0-11.0[facility] HospitalH Auto (RBC) [Entitic mass]on 83-89-1224OWX (RBC) [Entitic mass]30.9 pg25.9-34.0[facility] CampusMCHC Auto (RBC) [Mass/Vol]on 70-69-8810FFCM (RBC) [Mass/Vol]32.2 g/dL 29.9-35.2FCleveland Clinic Union HospitalMCV Auto (RBC) [Entitic vol]on 57-46-7689KQJ (RBC) [Entitic vol]96.1 uUNcdy89.0-94.0[facility] CampusNo Panel Informationon 24-67-734187215132-Dwcxsem Vitamin D Total94.2 ng/mL [facility] CampusComment on above:<20 ng/mL Vit D hakqsgdzz34- <30 ng/mL Vit D uaaaqdlbxvez24-355 ng/mL Vit D sufficient>100 ng/mL Potential ToxicityParathyroid Hormone (Intact)52 pg/gV91-33NiyohtubgSumma Health Akron CampusComment on above:Performed at: [facility] [employer] [id number] Director: Nathan Munoz PhD, Phone: [phone] Phosphorus Level4.1 mg/dL2.6-4.7FCleveland Clinic Union HospitalProstate Specific Antigen Screen0.91 ng/mL<=4.00[facility] CampusTotal Kbemvnhyhnctfzbt95 ng/oY32-257ZopqzypzjSumma Health Akron CampusComment on above: Performed at: [facility] [address]N[place] [id number] [place], [place] [id number] Director: Nathan Munoz PhD, Phone: [phone] Random Jolxptdlhq18.24 mg/dL20.00-300.00[facility] CampusPlatelet mean volume Auto (Bld) [Entitic vol]on 62-41-3932Jnsxstdj mean volume (Bld) [Entitic vol]9.5 fL 9.5-13.5FCleveland Clinic Union HospitalPlatelets Auto (Bld) [#/Vol]on 61-19-6540Cxatvuihu (Bld) [#/Vol]199 10 3/uB357-324NnshfixkzSumma Health Akron CampusProtein Auto test strip (U) [Mass/Vol]on 98-39-1513Ccgisvd (U) [Mass/Vol] TRACE mg/dLNEG/TRACESumma Health Akron CampusRBC Auto (Bld) [#/Vol]on 52-39-5348QON (Bld) [#/Vol]3.85 10 6/uLLow4.70-6.10[facility] Northerum or plasma anion gap determinationon 54-45-1362Wgtbq gap [Moles/Vol] 12.3 mmol/LFCoshocton Regional Medical Centerpecific gravity Auto test strip (U) [Rel density]on 95-58-9283Vvwweucy gravity (U) [Rel density]CLEARCLEARFCleveland Clinic Union HospitalUrine hemoglobin detection by automated test stripon 76-15-6320Babpwbytei Auto test strip Ql (U)NegativeNEGATIVESumma Health Akron CampusUrine nitrite detection by automated test stripon 02-01-2024 Nitrite Auto test strip Ql (U)SMALLAbnormalNEGATIVESumma Health Akron CampusNitrite Auto test strip Ql (U)NegativeNEGATIVESumma Health Akron CampusUrine protein/creatinine ratioon 35-53-9613Dxlyetm/Creatinine (U) [Ratio] 0.32[facility] CampusUrobilinogen Auto test strip (U) [Mass/Vol] on 03-26-3233Bedmfignzykr Qn (U)0.2 {Jagruti'U}/dL0.2-1.0[facility] CampuspH Auto test strip (U)on 31-05-6482eC (U)6.0 [pH]5.0-9.0[facility] CampusCholesterol in LDL Calc [Mass/Vol]on 12-19-2023 Cholesterol in LDL [Mass/Vol]81.8 mg/dLSumma Health Akron CampusComment on above:<100 mg/dl GXGKHLD746-750 mg/dl NEAR OR ABOVE QTCUZCJ402-500 mg/dl BORDERLINE VNEQ032-867 mg/dl HIGH>190 mg/dl VERY HIGHCholesterol in VLDL Calc [Mass/Vol]on 79-21-1821Ussbwlvvdlf in VLDL [Mass/Vol]23.2 mg/dLSumma Health Akron CampusGlucose mean value [Mass/volume] in Blood Estimated from glycated hemoglobinon 24-90-9947Kbcceep glucose Estimated from glycated hemoglobin (Bld) [Mass/Vol]137 mg/dLSumma Health Akron CampusLaboratory - Chemistry and Chemistry - challengeon 98-51-8465Ssznlbvdcza [Mass/Vol]148 mg/dL<=200[facility] CampusCholesterol in HDL [Mass/Vol]43 mg/dL 40-60[facility] CampusComment on above:> or =60 mg/dl - LOW CARDIOVASCULAR RISK<40 mg/dl - HIGH CARDIOVASCULAR RISKFree T4 [Mass/Vol]1.04 ng/dL0.76-1.46[facility] CampusTriglyceride [Mass/Vol]116 mg/dL <=150Sum[facility] CampusTSH Qn11.812 m[IU]/L0.358-3.740[facility] CampusLaboratory - Hematology and Cell countson 09-90-4305OrF0z (Bld) [Mass fraction]6.4 %4.5-6.2FCleveland Clinic Union HospitalComment on above:ADA RECOMMENDED LIMIT 4.0 - 6.0ADA THERAPEUTIC TARGET < 7.0ACTION SUGGESTED> 7.0Serum or plasma total cholesterol/high density lipoprotein (HDL) cholesterol mass ernesto 27-20-8860Krxbaircrtt.total/Cholesterol in HDL [Mass ratio]3.4 {ratio}[facility] CampusComment on above:3.3 - 4.4 LOW RISK4.4 - 7.1 AVERAGE RISK7.1 - 11.0 MODERATE RISK>11.0 HIGH RISKAlanine aminotransferase [Enzymatic activity/volume] in Serum or PlasmaOrdered By: Leigha Nelson on 10-59-9662AWW [Catalytic activity/Vol]20 U/L7-52[facility] CampusAlbumin [Mass/volume] in Serum or Plasma by Bromocresol green (BCG) dye binding methoOrdered By: Leigha Nelson on 22-21-9393Gnwgqhg BCG dye [Mass/Vol]4.4 g/dL3.5-5.7FCleveland Clinic Union HospitalAlkaline phosphatase [Enzymatic activity/volume] in Serum or PlasmaOrdered By: Leigha Nelson on 84-89-2354HRO [Catalytic activity/Vol]114 U/T56-564FnxyrrvzmSumma Health Akron CampusAspartate aminotransferase [Enzymatic activity/volume] in Serum or Plasma Ordered By: Leigha Nelson on 06-97-9884TML [Catalytic activity/Vol]23 U/L13-39 [facility] CampusBasophils Auto (Bld) [#/Vol]Ordered By: Leigha Nelson on 09-20-3430Kulahwmpm (Bld) [#/Vol]0.0 10*3/uL0.0-0.2FC[facility] Union HospitalBasophils/100 WBC Auto (Bld)Ordered By: Leigha Nelson on 86-37-6465Tmyvshlto/100 WBC (Bld)0.5 %.[facility] Bilirubin.total [Mass/volume] in Serum or PlasmaOrdered By: Leigha Nelson on 89-12-9571Xbsgbqqeo [Mass/Vol]0.8 mg/dL0.3-1.0[facility] Calcium [Mass/volume] in Serum or PlasmaOrdered By: Leigha Nelson on 08-30-2023 Calcium [Mass/Vol]9.7 mg/dL8.6-10.3FC[facility] Union HospitalCarbon dioxide, total [Moles/volume] in Serum or PlasmaOrdered By: Leigha Nelson on 99-41-8785QK3 [Moles/Vol]35.5 mmol/L21.0-31.0[facility] Chloride [Moles/volume] in Serum or PlasmaOrdered By: Leigha Nelson on 71-65-7288Ozztawaa [Moles/Vol]102 mmol/Y38-497IpkulvwplSumma Health Akron Campus Creatinine [Mass/volume] in Serum or PlasmaOrdered By: Leigha Nelson 99-84-7853Wbdfnevmnh [Mass/Vol]2.29 mg/dL0.70-1.30[facility] CampusEosinophils Auto (Bld) [#/Vol]Ordered By: Leigha Nelson on 08-30-2023 Eosinophils (Bld) [#/Vol]0.3 10*3/uL0.0-0.45[facility] Eosinophils/100 WBC Auto (Bld)Ordered By: Leigha Nelson on 08-30-2023 Eosinophils/100 WBC (Bld)3.8 %.[facility] CampusErythrocyte distribution width Auto (RBC) [Ratio]Ordered By: Leigha Nelson on 08-30-2023 Erythrocyte distribution width (RBC) [Ratio]14.8 %12.0-14.8[facility] CampusFerritin [Mass/volume] in Serum or PlasmaOrdered By: Leigha Nelson on 78-54-2546Dptzryfn [Mass/Vol]239.3 ng/mL23.9-336.2FC[facility] Union HospitalGlobulin Calc (S) [Mass/Vol]Ordered By: Leigha Nelson on 08-30-2023 Globulin (S) [Mass/Vol]2.5 g/dLSumma Health Akron CampusGlucose [Mass/volume] in Serum or PlasmaOrdered By: Leigha Nelson 23-02-5806Obcxurx [Mass/Vol]111 mg/xE04-505VqaiziutaSumma Health Akron CampusComment on above:ADA recommended reference rangeRandom Glucose Reference Range is dependent on time and content of last meal. Glucose of more than 200 mg/dL in a nonstressed, ambulatory subject supports the diagnosisof Diabetes Mellitus.Hematocrit Auto (Bld) [Volume fraction]Ordered By: Leigha Nelson on 36-89-7036Kmhvtdvutu (Bld) [Volume fraction]36.8 %38.8-50.0[facility] CampusHemoglobin [Mass/volume] in BloodOrdered By: Leigha Nelson on 61-40-6562Ebspadnkem (Bld) [Mass/Vol]12.3 g/dL13.0-17.0[facility] CampusIron [Mass/volume] in Serum or PlasmaOrdered By: Leigha Nelson on 24-24-9390Tyos [Mass/Vol]84 ug/dL 50-212[facility] CampusIron binding capacity [Mass/volume] in Serum or PlasmaOrdered By: Leigha Nelson on 45-20-7053Ssbf binding capacity [Mass/Vol]290 ug/hM622-378XlnbttxcdSumma Health Akron CampusIron saturation [Mass Fraction] in Serum or PlasmaOrdered By: Leigha Nelson on 22-69-1516Tkvp saturation [Mass fraction]29.0 %20-50[facility] CampusLeukocytes [#/volume] corrected for nucleated erythrocytes in Blood by Automated coun Ordered By: Leigha Nelson on 76-70-3726UNX corrected for nucl RBC Auto (Bld) [#/Vol]7.0 10*3/uL4.1-10.5FCleveland Clinic Union HospitalLymphocytes Auto (Bld) [#/Vol]Ordered By: Leigha Nelson on 96-96-7906Chraipwbykt (Bld) [#/Vol]1.5 10*3/uL1.00-4.8[facility] CampusLymphocytes/100 WBC Auto (Bld) Ordered By: Leigha Nelson on 02-62-1510Yownpistcvv/100 WBC (Bld)21.9 %.[facility] CampusMCH Auto (RBC) [Entitic mass]Ordered By: Leigha Nelson on 22-46-0251QYS (RBC) [Entitic mass]30.9 pg27.5-35.2FC[facility] Union HospitalMCHC Auto (RBC) [Mass/Vol]Ordered By: Leigha Nelson on 46-39-4801OCVO (RBC) [Mass/Vol]33.3 g/dL32.5-35.6FCleveland Clinic Union HospitalMCV Auto (RBC) [Entitic vol]Ordered By: Leigha Nelson on 75-29-2407XVE (RBC) [Entitic vol]92.8 fL83.5-101[facility] CampusMonocytes Auto (Bld) [#/Vol] Ordered By: Leigha Nelson on 70-28-5251Kgbbovnbo (Bld) [#/Vol]0.5 10*3/uL0.0-0.8 [facility] CampusMonocytes/100 WBC Auto (Bld)Ordered By: Leigha Nelson on 11-23-1113Aoktlglux/100 WBC (Bld)7.9 %.[facility] CampusNeutrophils Auto (Bld) [#/Vol]Ordered By: Leigha Nelson on 08-30-2023 Neutrophils (Bld) [#/Vol]4.6 10*3/uL1.8-7.7FC[facility] Neutrophils/100 WBC Auto (Bld)Ordered By: Leigha Nelson on 08-30-2023 Neutrophils/100 WBC (Bld)65.9 %.[facility] CampusNo Panel InformationOrdered By: Legiha Nelson on 76-77-6974Jfeaxhsew GFR (CKD-EPI)27.976 mL/MinSumma Health Akron CampusPharmacy Creatinine Clearance (Chem30.81 [facility] CampusNucleated erythrocytes [Presence] in Blood by Automated countOrdered By: Leigha Nelson on 81-90-2312Tvuatrqwv RBC Auto Ql (Bld)0.1 /100{WBC}0-0.5FCleveland Clinic Union HospitalPlatelet mean volume Auto (Bld) [Entitic vol]Ordered By: Leigha Nelson on 75-51-0066Nmpskytu mean volume (Bld) [Entitic vol]7.6 fL6.6-10.1FC[facility] Hospital Platelets Auto (Bld) [#/Vol]Ordered By: Leigha Nelson on 79-47-2406Djorgqwii (Bld) [#/Vol]206 10*3/sL857-445YbuseqxkpSumma Health Akron CampusPotassium [Moles/volume] in Serum or PlasmaOrdered By: Leigha Nelson on 08-30-2023 Potassium [Moles/Vol]4.5 mmol/L3.5-5.1FC[facility] HospitalProtein [Mass/volume] in Serum or PlasmaOrdered By: Leigha Nelson on 27-70-3428Kfqhrzv [Mass/Vol]6.9 g/dL6.4-8.9[facility] CampusRBC Auto (Bld) [#/Vol] Ordered By: Leigha Nelson on 81-52-2237LNQ (Bld) [#/Vol]3.96 10*6/uL3.90-5.60 [facility] Northerum or plasma albumin/globulin mass ratio Ordered By: Leigha Nelson on 74-93-8166Vkzdjju/Globulin [Mass ratio]1.8 {ratio} [facility] Northerum or plasma anion gap determinationOrdered By: Leigha Nelson on 40-03-4934Qotox gap [Moles/Vol]10.0 mmol/L6.0-15.0[facility] Northerum or plasma carcinoembryonic antigen measurement (mass/volume)Ordered By: Leigha Nelson on 37-41-3169Nenxraujzqjxdgnf Ag [Mass/Vol]2.1 ng/mL0.0-3.0[facility] Northodium [Moles/volume] in Serum or PlasmaOrdered By: Leigha Nelson on 41-62-1609Sjupcx [Moles/Vol]143 mmol/D908-604KulapvbrcSumma Health Akron CampusTransferrin [Mass/volume] in Serum or PlasmaOrdered By: Leigha Nelson on 14-46-1503Yogmxmeygxc [Mass/Vol]207 mg/dL 203-362Sum[facility] CampusUrea nitrogen [Mass/volume] in Serum or PlasmaOrdered By: Leigha Nelson on 94-37-0793Vaby nitrogen [Mass/Vol]51 mg/dL 7-25[facility] CampusWBC Auto (Bld) [#/Vol]Ordered By: Leigha Nelson on 43-54-8789GKW (Bld) [#/Vol]7.0 10*3/uL4.1-10.5FCleveland Clinic Union HospitalECHOCARDIO M/2D COMPLETEon 95-84-0962JFOVABUNRD M/2D COMPLETE Patient: DELANO OLIVER Exam Date: 02/28/2023 : 1940 Gender:M 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 on 02/28/2023 at 20:26[facility] HospitalT3, TOTAL (TRIIODOTHYRONINE)on 68-46-6305X2, TOTAL83 ng/vLHdiugc23-336 [facility] CenterComment on above:Performed By: #### FT4, PSASC #### [facility] [address] [place] [address] Dr. Benito Linton T4on 68-17-3161Waxc T4 [Mass/Vol]1.03 ng/dLNormal0.76-1.46 Comment on above:Performed By: #### FT4 #### [facility] [address] [place] [address] Dr. Benito MartinesID PROFILEon 30-61-6381VWFJ-HDL RATIO NORMSEE BELOWParkview Health Bryan HospitalComment on above:Result Comment: 3.3 - 4.4 LOW RISK 4.4 - 7.1 AVERAGE RISK 7.1 - 11.0 MODERATE RISK >11.0 HIGH RISKPerformed By: #### TSH, FT3, BMP #### [facility] [address] [place] [address] Dr. Benito Burgeresterol [Mass/Vol]164 mg/dLNormal<=200[facility] Comment on above:Performed By: #### TSH, FT3, BMP #### [facility] [address] [place] [address] Dr. Benito Burgeresterol in HDL [Mass/Vol]41 mg/gBGblbhi48-35XeaComment on above:Performed By: #### TSH, FT3, BMP #### [facility] [address] [place] [address] Dr. Benito Burgeresterol in LDL [Mass/Vol]104.2 mg/dLParkview Health Bryan HospitalComment on above:Performed By: #### TSH, FT3, BMP #### [facility] [address] [place] [address] Dr. Benito Calvo.total/Cholesterol in HDL [Mass ratio]4.0 {ratio} NormalComment on above:Performed By: #### TSH, FT3, BMP #### [facility] [address] [place] [address] Dr. Benito Johnson NORMAL> or = 60 mg/dl - LOW CARDIOVASCULAR RISK <40 mg/dl - HIGH CARDIOVASCULAR RISKParkview Health Bryan HospitalComment on above:Performed By: #### TSH, FT3, BMP #### [facility] [address] [place] [address] Dr. Benito SchwartzLDL CALC NORMALSEE BELOWNoKettering Health – Soin Medical CenterComment on above:Result Comment: <100 mg/dl OPTIMAL 100 - 129 mg/dl NEAR OR ABOVE OPTIMAL 130 - 159 mg/dl BORDERLINE HIGH 160 - 189 mg/dl HIGH >190 mg/dl VERY HIGH Performed By: #### TSH, FT3, BMP #### [facility] [address] [place] [address] Dr. Benito SchwartzTriglyceride [Mass/Vol]94 mg/dLNormal<=150The [facility] Comment on above:Performed By: #### TSH, FT3, BMP #### [facility] [address] [place] [address] Dr. Benito SchwartzVLDL CALC18.8 mg/dLNoKettering Health – Soin Medical CenterComment on above: Performed By: #### TSH, FT3, BMP #### [facility] [address] [place] [address] Dr. Benito Kelley 71-67-7077ALX99.732 uIU/mLCritically high0.358-3.740Comment on above:Performed By: #### FT4, PSASC #### [facility] [address] [place] [address] Dr. Benito SchwartzPTDarwin INTACTon 59-89-7612XBJ, Lodlhr68 pg/xFKzuasn77-15Ixm [facility] CenterComment on above:Performed By: #### URTPCR #### [facility] [address] [place] [address] Dr. Benito SchwartzT3, TOTAL (TRIIODOTHYRONINE)on 12-84-0453S6, TOTAL77 ng/dLNormal 71-180The [facility] CenterComment on above:Performed By: #### TSH, FT3, BMP #### [facility] [address] [address] [address] Benito Love AUTO DIFFon 39-01-1200TAZK #0.0 103/ulNormal0.0-0.1The [facility] CenterComment on above:Performed By: #### CBC #### [facility] [address] [address] [address] Benito SchwartzBasophils/100 WBC (Bld)0.4 %Normal0.2-2.0 Comment on above:Performed By: #### CBC #### [facility] [address] [place] [address] Dr. Benito Deluna #0.4 103/ulNormal0.0-0.7The [facility] CenterComment on above: Performed By: #### CBC #### [facility] [address] [place] [address] Dr. Benito Wanosinophils/100 WBC (Bld)5.1 %Normal0.9-7.0The [facility] Comment on above:Performed By: #### CBC #### [facility] [address] [place] [address] Dr. Benito Wanrythrocyte distribution width (RBC) [Ratio]13.2 %Cryymc89.0-15.0 Comment on above:Performed By: #### CBC #### [facility] [address] [place] [address] Dr. Benito SchwartzHematocrit (Bld) [Volume fraction]37.4 %Critically low42.0-54.0 Comment on above:Performed By: #### CBC #### [facility] [address] [place] [address] Dr. Benito SchwartzHemoglobin (Bld) [Mass/Vol]12.4 g/dLCritically low14.0-18.0Comment on above:Performed By: #### CBC #### [facility] [address] [place] [address] Dr. Benito Carias #0.03 10e3/ulNormal0.00-0.03The [facility] CenterComment on above:Performed By: #### CBC #### [facility] [address] [place] [address] Dr. Benito Carias %0.4 %Normal0.0-0.5The [facility] CenterComment on above: Performed By: #### CBC #### [facility] [address] [address] [address] Benito Negrete #1.6 103/ulNormal1.2-3.8The [facility] CenterComment on above:Performed By: #### CBC #### [facility] [address] [place] [address] Dr. Benito Srinivasanhocytes/100 WBC (Bld)20.3 %Critically low20.5-60.0The [facility] CenterComsparrow ionia hospital on above:Performed By: #### CBC #### [facility] [address] [place] [address] Dr. Benito Kessler DIFF REQNONormalThe [facility] CenterComment on above: Performed By: #### CBC #### [facility] [address] [place] [address] Dr. Benito Quarles (RBC) [Entitic mass]31.7 ntDwispq77.9-34.0The [facility] Centerment on above:Performed By: #### CBC #### [facility] [address] [place] [address] Dr. Benito Lawson (RBC) [Mass/Vol]33.2 g/mPKfgpkz50.9-35.2The [facility] Centerment on above:Performed By: #### CBC #### [facility] [address] [place] [address] Dr. Benito Gomez (RBC) [Entitic vol]95.7 fLCritically high80.0-94.0The [facility] Centerment on above:Performed By: #### CBC #### [facility] [address] [place] [address] Dr. Benito Colin #0.7 103/ulNormal0.3-0.8The [facility] CenterComment on above:Performed By: #### CBC #### [facility] [address] [place] [address] Dr. Benito Francoocytes/100 WBC (Bld)8.6 %Normal1.7-12.0The [facility] Comment on above:Performed By: #### CBC #### [facility] [address] [place] [address] Dr. Benito HerediaUT #5.3 103/ulNormal1.4-6.5The [facility] CenterComment on above:Performed By: #### CBC #### [facility] [address] [place] [address] Dr. Benito Herediautrophils/100 WBC (Bld)65.2 %Irkaji54.0-75.0The [facility] CenterComment on above:Performed By: #### CBC #### [facility] [address] [place] [address] Dr. Benito SchwartzPlatelet mean volume (Bld) [Entitic vol]9.0 fLCritically low 9.5-13.5The [facility] CenterComment on above:Performed By: #### CBC #### [facility] [address] [place] [address] Dr. Benito SchwartzPLT209 103/bjFjfeac987-369Shi [facility] CenterComment on above: Performed By: #### CBC #### [facility] [address] [place] [address] Dr. Benito SchwartzRBC3.91 106/ulCritically low4.70-6.10The [facility] CenterComment on above:Performed By: #### CBC #### [facility] [address] [place] [address] Dr. Benito SchwartzWBC8.1 103/ulNormal4.0-11.0The [facility] CenterComment on above: Performed By: #### CBC #### [facility] [address] [place] [address] Dr. Benito Linton T4on 69-55-6257Deex T4 [Mass/Vol]0.87 ng/dLNormal0.76-1.46 The [facility] CenterComment on above:Performed By: #### FT4, PSASC #### [facility] [address] [place] [address] Dr. Benito SchwartzGLYCOHEMOGLOBIN A1Con 57-78-8791ILS RECOMMENDATIONSEE BELOWNormal The [facility] CenterComment on above:Result Comment: ADA RECOMMENDED LIMIT 4.0 - 6.0 ADA THERAPEUTIC TARGET < 7.0 ACTION SUGGESTED > 7.0Performed By: #### CBC #### [facility] [address] [place] [address] Dr. Benito SchwartzGlucose [Mass/Vol]126 mg/dLNormalThe [facility] CenterComment on above:Performed By: #### CBC #### [facility] [address] [place] [address] Dr. Benito SchwartzHbA1c (Bld) [Mass fraction]6.0 %Normal4.5-6.2The [facility] CenterComment on above:Performed By: #### CBC #### [facility] [address] [place] [address] Dr. Benito SchwartzMAGNESIUMon 41-65-0438Hthjdfgni [Mass/Vol]2.3 mg/dLNormal1.8-2.4 The [facility] CenterComment on above:Performed By: #### URTPCR #### [facility] [address] [place] [address] Dr. Benito SchwartzPHOSPHORUSon 24-25-6639Yvnpkjtuy [Mass/Vol]4.1 mg/dLNormal2.6-4.7 The [facility] CenterComment on above:Performed By: #### URTPCR #### [facility] [address] [place] [address] Dr. Benito SchwartzPROF CHEM 8 (BAS METB)on 03-62-8872Ypsuv gap [Moles/Vol]11.1 mmol/LNormalThe [facility] CenterComment on above:Performed By: #### URTPCR #### [facility] [address] [address] [address] Benito cShwartzCalcium [Mass/Vol]8.9 mg/dLNormal8.5-10.1The [facility] Comment on above:Performed By: #### URTPCR #### [facility] [address] [address] [address] Benito SchwartzChloride [Moles/Vol]100 mmol/BKioyjf17-547Ghq [facility] Comment on above:Performed By: #### URTPCR #### [facility] [address] [place] [address] Dr. Benito SchwartzCO2 [Moles/Vol]33.2 mmol/LCritically high21.0-32.0The [facility] CenterComment on above:Performed By: #### URTPCR #### [facility] [address] [place] [address] Dr. Benito SchwartzCreatinine [Mass/Vol]2.31 mg/dLCritically high0.70-1.30The [facility] CenterComment on above:Performed By: #### URTPCR #### [facility] [address] [place] [address] Dr. Oliver ChangEGFR-AF YGPMZRYU05 mL/min/1.89c8Llsdwlafhb low>=60The [facility] CenterComment on above:Performed By: #### URTPCR #### [facility] [address] [place] [address] Dr. Benito WanGFR-NON AF WUQOLLPE12 mL/min/1.64a2Avqprtxdmq low>=60The [facility] CenterComment on above:Performed By: #### URTPCR #### [facility] [address] [place] [address] Dr. Benito SchwartzGlucose [Mass/Vol]112 mg/dLCritically teha79-662Sgm [facility] CenterComment on above:Performed By: #### URTPCR #### [facility] [address] [place] [address] Dr. Benito SchwartzPotassium [Moles/Vol]4.3 mmol/LNormal3.5-5.1The [facility] Comment on above:Performed By: #### URTPCR #### [facility] [address] [address] [address] Benito Villalobosdium [Moles/Vol]140 mmol/EAgjayb820-504Zrs [facility] Comment on above:Performed By: #### URTPCR #### [facility] [address] [address] [address] Benito Andrade nitrogen [Mass/Vol]51.0 mg/dLCritically high7.0-18.0The [facility] CenterComment on above:Performed By: #### URTPCR #### [facility] [address] [place] [address] Dr. Benito SchwartzUrea nitrogen/Creatinine [Mass ratio]22.1 mg/mgNoalThe [facility] CenterComment on above:Performed By: #### URTPCR #### [facility] [address] [place] [address] Dr. Benito Kelley 64-05-7762HCC88.692 uIU/mLCritically high0.358-3.740Comment on above:Performed By: #### CBC #### [facility] [address] [place] [address] Dr. Benito Bowden 69-10-6580Msxyrtxfd Ql (U)NegativeNormalNEGATIVEComment on above:Performed By: #### URTPCR #### [facility] [address] [place] [address] Dr. Benito Garcia (U)CLEARNormalCLEARComment on above: Performed By: #### URTPCR #### [facility] [address] [address] [address] Benito Edmonds (U)LT. YELLOWNormalYMercy Health Fairfield HospitalComment on above:Performed By: #### URTPCR #### [facility] [address] [place] [address] Dr. Benito Jonesose Ql (U)NegativeNormalNEGATIVEComment on above:Performed By: #### URTPCR #### [facility] [address] [address] [address] Benito SchwartzHemoglobin Ql (U)NegativeNormalNEGACMC Healthcare System Comment on above:Performed By: #### URTPCR #### [facility] [address] [place] [address] Dr. Benito SchwartzKetones Ql (U)NegativeNormalNEGATIVEThe [facility] CenterComment on above:Performed By: #### URTPCR #### [facility] [address] [place] [address] Dr. Benito SchwartzLEUKOCYTESNegativeNormalNEGATIVEComment on above:Performed By: #### URTPCR #### [facility] [address] [place] [address] Dr. Benito SchwartzNitrite Ql (U)NegativeNormalNEGATIVEComment on above:Performed By: #### URTPCR #### [facility] [address] [place] [address] Dr. Benito SchwartzpH (U)6.0 [pH]Normal5-9Comment on above: Performed By: #### URTPCR #### [facility] [address] [place] [address] Dr. Benito SchwartzSPEC GRAVITY<=1.563Cpzcscyk0.005-<=1.025 Comment on above:Performed By: #### URTPCR #### [facility] [address] [place] [address] Dr. Benito Edwards PROTEINNegativeNormalNEGATIVE/ TRACE Comment on above:Performed By: #### URTPCR #### [facility] [address] [place] [address] Dr. Benito SchwartzUrobilinogen Qn (U)0.2 {Jagruti'U}/dLNormal0.2 - 1.0The [facility] CenterComment on above:Performed By: #### URTPCR #### [facility] [address] [place] [address] Dr. Benito Holder T PROTEIN CREAT RATIOon 32-54-3194Yjwfhkn (U) [Mass/Vol] 19.1 mg/dLCritically high<=12.0The [facility] on above:Performed By: #### FT4, PSASC #### [facility] [address] [place] [address] Dr. Benito Bermudez PROT CREAT RAT0.75NoKettering Health – Soin Medical CenterComment on above: Performed By: #### FT4, PSASC #### [facility] [address] [place] [address] Dr. Benito Holder CREAT25.63 mg/qJXsqyjr63.00-300.00The [facility] Comment on above:Performed By: #### FT4, PSASC #### [facility] [address] [place] [address] Dr. Benito SchwartzVITAMIN D 25 OHon 85-25-5874LJG D 25-OH86.8 ng/mLNormalThe [facility] CenterComment on above:Performed By: #### URTPCR #### [facility] [address] [place] [address] Dr. Benito FRANKSEE BELOWParkview Health Bryan HospitalComsparrow ionia hospital on above: Result Comment: <20 ng/mL Vit D deficient 20 - <30 ng/mL Vit D insufficient 30 - 100 ng/mL Vit D sufficient >100 ng/mL Potential ToxicityPerformed By: #### URTPCR #### [facility] [address] [place] [address] Dr. Benito SchwartzT3, TOTAL (TRIIODOTHYRONINE)on 87-31-8209E6, TOTAL82 ng/dLNormal 71-180The [facility] Centerment on above:Performed By: #### VITAD #### [facility] [address] [place] [address] Dr. Benito SchwartzFREE T4on 74-80-8774Eckm T4 [Mass/Vol]0.93 ng/dLNormal0.76-1.46 The [facility] CenterComment on above:Performed By: #### CBC #### [facility] [address] [place] [address] Dr. Benito Kelley 23-15-8906TYX94.189 uIU/mLCritically high0.358-3.740The [facility] CenterComment on above:Performed By: #### FT4, PSASC #### [facility] [address] [place] [address] Dr. Benito SchwartzT3, TOTAL (TRIIODOTHYRONINE)on 49-79-6400H8, TOTAL43 ng/dL Critically cdl48-227Pnr [facility] CenterComment on above:Performed By: #### FT4, PSASC #### [facility] [address] [place] [address] Dr. Benito Linton T4on 36-08-6199Gvql T4 [Mass/Vol]0.35 ng/dLCritically low 0.76-1.46The [facility] CenterComment on above:Performed By: #### FT4, PSASC #### [facility] [address] [place] [address] Dr. Benito Kelley 73-58-5370JYE292.174 uIU/mLCritically high0.358-3.740The [facility] CenterComment on above:Performed By: #### FT4, PSASC #### [facility] [address] [place] [address] Dr. Benito SchwartzMAGNESIUMon 15-12-6737Khodfdddn [Mass/Vol]2.5 mg/dLCritically high1.8-2.4The [facility] CenterComment on above:Performed By: #### FT4 #### [facility] [address] [place] [address] Dr. Benito SchwartzPROF CHEM 8 (BAS METB)on 01-10-5132Ythbu gap [Moles/Vol]7.3 mmol/LNormalThe [facility] CenterComment on above:Performed By: #### FT4 #### [facility] [address] [place] [address] Dr. Benito SchwartzCalcium [Mass/Vol]8.8 mg/dLNormal8.5-10.1 Comment on above:Performed By: #### FT4 #### [facility] [address] [place] [address] Dr. Benito SchwartzChloride [Moles/Vol]100 mmol/GWvxzdh87-778Spi [facility] Comment on above:Performed By: #### FT4 #### [facility] [address] [place] [address] Dr. Benito SchwartzCO2 [Moles/Vol]33.7 mmol/LCritically high21.0-32.0The [facility] CenterComment on above:Performed By: #### FT4 #### [facility] [address] [place] [address] Dr. Benito SchwartzCreatinine [Mass/Vol]2.43 mg/dLCritically high0.70-1.30The [facility] CenterComment on above:Performed By: #### FT4 #### [facility] [address] [place] [address] Dr. Oliver ChangEGFR-AF VYXAMDHA98 mL/min/1.68o4Nliwxxctfn low>=60The [facility] CenterComment on above:Performed By: #### FT4 #### [facility] [address] [place] [address] Dr. Benito WanGFR-NON AF ENPJZCRE91 mL/min/1.19s4Nqaztnnurn low>=60The [facility] CenterComment on above:Performed By: #### FT4 #### [facility] [address] [place] [address] Dr. Benito SchwartzGlucose [Mass/Vol]136 mg/dLCritically emqt96-297Yda [facility] CenterComment on above:Performed By: #### FT4 #### [facility] [address] [place] [address] Dr. Benito SchwartzPotassium [Moles/Vol]4.0 mmol/LNormal3.5-5.1The [facility] Comment on above:Performed By: #### FT4 #### [facility] [address] [place] [address] Dr. Benito Villalobosdium [Moles/Vol]137 mmol/OHpqbnw371-742Eab [facility] Comment on above:Performed By: #### FT4 #### [facility] [address] [place] [address] Dr. Benito Andrade nitrogen [Mass/Vol]47.0 mg/dLCritically high7.0-18.0The [facility] CenterComment on above:Performed By: #### FT4 #### [facility] [address] [place] [address] Dr. Benito Andrade nitrogen/Creatinine [Mass ratio]19.3 mg/mgNormalThe [facility] CenterComment on above:Performed By: #### FT4 #### [facility] [address] [place] [address] Dr. Benito Dubose INTACTon 30-77-2921OSA, Eunhdr56 pg/mDQgkcni60-82Xzh [facility] CenterComment on above:Performed By: #### FT4, PSASC #### [facility] [address] [place] [address] Dr. Benito Love AUTO DIFFon 59-75-1039NYBH #0.0 103/ulNormal0.0-0.1The [facility] CenterComment on above:Performed By: #### FT4, PSASC #### [facility] [address] [place] [address] Dr. Benito SchwartzBasophils/100 WBC (Bld)0.5 %Normal0.2-2.0The [facility] Comment on above:Performed By: #### FT4, PSASC #### [facility] [address] [place] [address] Dr. Benito Deluna #0.4 103/ulNormal0.0-0.7The [facility] CenterComment on above: Performed By: #### FT4, PSASC #### [facility] [address] [place] [address] Dr. Benito Wanosinophils/100 WBC (Bld)5.3 %Normal0.9-7.0The [facility] Comment on above:Performed By: #### FT4, PSASC #### [facility] [address] [place] [address] Dr. Benito Wanrythrocyte distribution width (RBC) [Ratio]14.3 %Phqfro80.0-15.0 The [facility] CenterComment on above:Performed By: #### FT4, PSASC #### [facility] [address] [place] [address] Dr. Benito SchwartzHematocrit (Bld) [Volume fraction]36.9 %Critically low42.0-54.0 The [facility] CenterComment on above:Performed By: #### FT4, PSASC #### [facility] [address] [place] [address] Dr. Benito SchwartzHemoglobin (Bld) [Mass/Vol]12.4 g/dLCritically low14.0-18.0The [facility] CenterComment on above:Performed By: #### FT4, PSASC #### [facility] [address] [place] [address] Dr. Benito Carias #0.04 10e3/ulCritically high0.00-0.03The [facility] Comment on above:Performed By: #### FT4, PSASC #### [facility] [address] [place] [address] Dr. Benito Carias %0.5 %Normal0.0-0.5The [facility] CenterComment on above: Performed By: #### FT4, PSASC #### [facility] [address] [place] [address] Dr. Benito Negrete #1.6 103/ulNormal1.2-3.8The [facility] CenterComment on above:Performed By: #### FT4, PSASC #### [facility] [address] [place] [address] Dr. Benito Srinivasanhocytes/100 WBC (Bld)22.2 %Yhabsp79.5-60.0The [facility] CenterComment on above:Performed By: #### FT4, PSASC #### [facility] [address] [place] [address] Dr. Benito Kessler DIFF REQNONormalThe [facility] CenterComment on above: Performed By: #### FT4, PSASC #### [facility] [address] [place] [address] Dr. Benito Lawson (RBC) [Entitic mass]31.2 nmFrqljw13.9-34.0The [facility] HospitalComment on above:Performed By: #### FT4, PSASC #### [facility] [address] [place] [address] Dr. Benito Lawson (RBC) [Mass/Vol]33.6 g/vUHcsrld65.9-35.2The [facility] CenterComment on above:Performed By: #### FT4, PSASC #### [facility] [address] [place] [address] Dr. Benito Lawson (RBC) [Entitic vol]92.7 gZEvldrp85.0-94.0The [facility] CenterComment on above:Performed By: #### FT4, PSASC #### [facility] [address] [place] [address] Dr. Benito Colin #0.5 103/ulNormal0.3-0.8The [facility] CenterComment on above:Performed By: #### FT4, PSASC #### [facility] [address] [place] [address] Dr. Benito Francoocytes/100 WBC (Bld)6.4 %Normal1.7-12.0The [facility] Comment on above:Performed By: #### FT4, PSASC #### [facility] [address] [place] [address] Dr. Benito Herrera #4.8 103/ulNormal1.4-6.5The [facility] CenterComment on above:Performed By: #### FT4, PSASC #### [facility] [address] [place] [address] Dr. Benito Strongophils/100 WBC (Bld)65.1 %Lmrzld91.0-75.0The [facility] CenterComment on above:Performed By: #### FT4, PSASC #### [facility] [address] [place] [address] Dr. Benito Lang mean volume (Bld) [Entitic vol]8.7 fLCritically low 9.5-13.5The [facility] CenterComment on above:Performed By: #### FT4, PSASC #### [facility] [address] [place] [address] Dr. Benito SchwartzPLT206 103/wuDgqtgd719-959Ocj [facility] on above: Performed By: #### FT4, PSASC #### [facility] [address] [place] [address] Dr. Benito SchwartzRBC3.98 106/ulCritically low4.70-6.10The [facility] CenterComsparrow [facility] on above:Performed By: #### FT4, PSASC #### [facility] [address] [place] [address] Dr. Benito SchwartzWBC7.4 103/ulNormal4.0-11.0The [facility] on above: Performed By: #### FT4, PSASC #### [facility] [address] [place] [address] Dr. Benito SchwartzMAGNESIUMon 39-89-0876Ggyiyyhda [Mass/Vol]2.1 mg/dLNormal1.8-2.4 The [facility] CenterComsp[facility] on above:Performed By: #### B12FOL, FETIBC #### [facility] [address] [place] [address] Dr. Benito SchwartzPHOSPHORUSon 71-14-6761Klxqjntcf [Mass/Vol]3.2 mg/dLNormal2.6-4.7 The [facility] on above:Performed By: #### B12FOL, FETIBC #### [facility] [address] [place] [address] Dr. Benito SchwartzPROF CHEM 8 (BAS METB)on 17-28-4265Uwqqz gap [Moles/Vol]10.1 mmol/LNormalThe [facility] CenterComment on above:Performed By: #### B12FOL, FETIBC #### [facility] [address] [address] [address] Benito SchwartzCalcium [Mass/Vol]9.3 mg/dLNormal8.5-10.1 Comment on above:Performed By: #### B12FOL, FETIBC #### [facility] [address] [address] [address] Benito SchwartzChloride [Moles/Vol]99 mmol/BPodhci70-629Hfc [facility] Comment on above:Performed By: #### B12FOL, FETIBC #### [facility] [address] [place] [address] Dr. Benito SchwartzCO2 [Moles/Vol]32.4 mmol/LCritically high21.0-32.0The [facility] CenterComment on above:Performed By: #### B12FOL, FETIBC #### [facility] [facility] [address] [address] [address] Benito SchwartzCreatinine [Mass/Vol]2.77 mg/dLCritically high0.70-1.30The [facility] CenterComment on above:Performed By: #### B12FOL, FETIBC #### [facility] [address] [place] [address] Dr. Benito WanGFR-AF WGNGXAQJ91 mL/min/1.58i3Roqrcfskjb low>=60The [facility] CenterComment on above:Performed By: #### B12FOL, FETIBC #### [facility] [address] [address] [address] Benito WanGFR-NON AF LFMASJQR09 mL/min/1.34w0Jvuwihnlan low>=60The [facility] CenterComment on above:Performed By: #### B12FOL, FETIBC #### [facility] [address] [place] [address] Dr. Benito SchwartzGlucose [Mass/Vol]166 mg/dLCritically ebov68-105Ogg [facility] CenterComment on above:Performed By: #### B12FOL, FETIBC #### [facility] [address] [address] [address] Benito SchwartzPotassium [Moles/Vol]3.5 mmol/LNormal3.5-5.1 Comment on above:Performed By: #### B12FOL, FETIBC #### [facility] [address] [place] [address] Dr. Benito SchwartzSodium [Moles/Vol]138 mmol/CHosezq123-201Shr Comment on above:Performed By: #### B12FOL, FETIBC #### [facility] [address] [place] [address] Dr. Benito SchwartzUrea nitrogen [Mass/Vol]50.0 mg/dLCritically high7.0-18.0Comment on above:Performed By: #### B12FOL, FETIBC #### [facility] [address] [place] [address] Dr. Benito Andrade nitrogen/Creatinine [Mass ratio]18.1 mg/mgNormalThTrumbull Memorial HospitalComment on above:Performed By: #### B12FOL, FETIBC #### [facility] [address] [place] [address] Dr. Benito Edwards RANDOMon 93-30-8059Hqvyjggvy Ql (U)NegativeNormalNEGATIVEComment on above:Performed By: #### VITAD #### [facility] [address] [place] [address] Dr. Benito Garcia (U)CLEARNormalCLEARComment on above: Performed By: #### VITAD #### [facility] [address] [place] [address] Dr. Benito Edmonds (U)LT. YELLOWNormalYELLOWComment on above:Performed By: #### VITAD #### [facility] [address] [place] [address] Dr. Yilan ChangGlucose Ql (U)NegativeNormalNEGATIVEComment on above:Performed By: #### VITAD #### [facility] [address] [place] [address] Dr. Benito SchwartzHemoglobin Ql (U)NegativeNormalNEGATIVE Comment on above:Performed By: #### VITAD #### [facility] [address] [place] [address] Dr. Benito SchwartzKetones Ql (U)NegativeNormalNEGATIVEComment on above:Performed By: #### VITAD #### [facility] [address] [place] [address] Dr. Benito SchwartzLEUKOCYTESNegativeNormalNEGATIVEComment on above:Performed By: #### VITAD #### [facility] [address] [place] [address] Dr. Benito SchwartzNitrite Ql (U)NegativeNormalNEGATIVEComment on above:Performed By: #### VITAD #### [facility] [address] [place] [address] Dr. Benito SchwartzpH (U)5.5 [pH]Normal5-9The [facility] CenterComsparrow ionia hospital on above: Performed By: #### VITAD #### [facility] [address] [place] [address] Dr. Benito SchwartzSPEC GRAVITY1.584Bwxwcj4.005-<=1.025The [facility] Medical CenterComment on above:Performed By: #### VITAD #### [facility] [address] [place] [address] Dr. Benito SchwartzUA PROTEINNegativeNormalNEGATIVE/ TRACEThe [facility] Comment on above:Performed By: #### VITAD #### [facility] [address] [place] [address] Dr. Benito Mosesbilinogen Qn (U)0.2 {Jagruti'U}/dLNormal0.2 - 1.0The [facility] Medical CenterComment on above:Performed By: #### VITAD #### [facility] [address] [address] [address] Benito Holder T PROTEIN CREAT RATIOon 51-11-9217Tmddcoi (U) [Mass/Vol] 16.4 mg/dLCritically high<=12.0The [facility] Medical CenterComment on above:Performed By: #### TSH, FT3, BMP #### [facility] [address] [address] [address] Benito Bermudez PROT CREAT RAT0.79NoKettering Health – Soin Medical CenterComment on above: Performed By: #### TSH, FT3, BMP #### [facility] [address] [place] [address] Dr. Benito Holder CREAT20.88 mg/zGZlnkza54.00-300.00 Comment on above:Performed By: #### TSH, FT3, BMP #### [facility] [address] [place] [address] Dr. Benito SchwartzVITAMIN D 25 OHon 68-29-6415ZPS D 25-OH83.7 ng/mLNormalThe [facility] Medical CenterComment on above:Performed By: #### VITAD #### [facility] [address] [place] [address] Dr. Benito Capps RANGESSEE BELOWParkview Health Bryan HospitalComment on above: Result Comment: <20 ng/mL Vit D deficient 20 - <30 ng/mL Vit D insufficient 30 - 100 ng/mL Vit D sufficient >100 ng/mL Potential ToxicityPerformed By: #### VITAD #### [facility] [address] [place] [address] Dr. Benito SchwartzAlbumin [Mass/volume] in Serum or PlasmaOrdered By: Leigha Nelson on 99-83-5352Kuquurq [Mass/Vol]3.9 g/dL3.2-5.5FC[facility] Hospital Basophils Auto (Bld) [#/Vol]Ordered By: Leigha Nelson on 14-54-9122Wptfrtxht (Bld) [#/Vol]0.0 10*3/uL0.0-0.2FCleveland Clinic Union HospitalBasophils/100 WBC Auto (Bld)Ordered By: Leigha Nelson on 71-59-9688Iioysfaab/100 WBC (Bld)0.5 %.[facility] CampusCreatinine and Glomerular filtration rate.predicted panel (S/P/Bld)Ordered By: Leigha Nelson on 54-35-4589Taonlojprl [Mass/Vol]2.63 mg/dL0.64-1.27[facility] CampusEosinophils Auto (Bld) [#/Vol]Ordered By: Leigha Nelson on 98-16-8885Kjxztcnonla (Bld) [#/Vol]0.3 10*3/uL0.0-0.45[facility] CampusEosinophils/100 WBC Auto (Bld) Ordered By: Leigha Nelson on 90-09-1554Zvbywcukqag/100 WBC (Bld)4.3 %.[facility] CampusErythrocyte distribution width Auto (RBC) [Ratio]Ordered By: Leigha Nelson on 88-79-9172Zlduxurjhqj distribution width (RBC) [Ratio]15.7 %12.0-14.8[facility] CampusEstimated glomerular filtration rate (GFR) non- AmericanOrdered By: Leigha Nelson on 59-57-3815VPY/1.73 sq M.predicted among non-blacks MDRD (S/P/Bld) [Vol rate/Area]24 mL/MinSumma Health Akron CampusGFR/1.73 sq M.predicted among non-blacks MDRD (S/P/Bld) [Vol rate/Area]Estimated glomerular filtration rate (GFR) non- [facility] CampusGlobulin Calc (S) [Mass/Vol]Ordered By: Leigha Nelson on 46-51-5755Rjtggmho (S) [Mass/Vol]2.8 g/dLSumma Health Akron CampusHematocrit Auto (Bld) [Volume fraction]Ordered By: Leigha Nelson on 79-87-7946Nxpswjsjke (Bld) [Volume fraction]37.2 %38.8-50.0[facility] CampusHemoglobin [Mass/volume] in BloodOrdered By: Leigha Nelson on 21-37-1877Zedjadqmah (Bld) [Mass/Vol]12.4 g/dL13.0-17.0[facility] CampusLaboratory - Hematology and Cell countsOrdered By: Leigha Omar on 16-42-2223Stutprkxg RBC/100 WBC (Bld) [Ratio]0.1 %0-0.5FCleveland Clinic Union HospitalLeukocytes [#/volume] in Blood by Automated countOrdered By: Leigha Omar on 36-30-9686CJF (Bld) [#/Vol]6.7 10*3/uL4.5-11.0[facility] CampusLymphocytes Auto (Bld) [#/Vol]Ordered By: Leigha Omar on 28-66-6345Dhjpqomawuc (Bld) [#/Vol]1.2 10*3/uL1.00-4.8[facility] CampusLymphocytes/100 WBC Auto (Bld)Ordered By: Leigha Nelson on 08-31-2022 Lymphocytes/100 WBC (Bld)18.5 %.[facility] Auto (RBC) [Entitic mass]Ordered By: Leigha Omar on 92-74-3101JIN (RBC) [Entitic mass] 31.0 pg27.5-35.2FCleveland Clinic Union HospitalMCHC Auto (RBC) [Mass/Vol] Ordered By: Leigha Nelson on 73-52-8204HMWB (RBC) [Mass/Vol]33.4 g/dL32.5-35.6 [facility] CampusMCV Auto (RBC) [Entitic vol]Ordered By: Leigha Omar on 54-48-7391SZY (RBC) [Entitic vol]92.9 fL83.5-101[facility] CampusMonocytes Auto (Bld) [#/Vol]Ordered By: Leigha Omar on 41-80-1288Iibwxjyvw (Bld) [#/Vol]0.6 10*3/uL0.0-0.8[facility] CampusMonocytes/100 WBC Auto (Bld)Ordered By: Leigha Nelson on 08-31-2022 Monocytes/100 WBC (Bld)8.4 %.[facility] CampusNeutrophils Auto (Bld) [#/Vol]Ordered By: Leigha Omar on 71-63-1021Xhgxsostqek (Bld) [#/Vol]4.6 10*3/uL1.8-7.7FCleveland Clinic Union HospitalNeutrophils/100 WBC Auto (Bld) Ordered By: Leigha Omar on 33-44-0674Dbziylttbkp/100 WBC (Bld)68.3 %.[facility] CampusNo Panel InformationOrdered By: Leigha Omar on 92-21-9378Vmgdkiheq GFR ()29 mL/MinSumma Health Akron CampusComment on above:GFR estimated reference range: According to KDOQI guidelines, <60 ml/min/1.73m2 is sufficient todiagnose a patient with chronic kidney disease.Pharmacy Creatinine Clearance (Chem26.08[facility]0.1 %0-0.5FC[facility] Hospital29 mL/MinSumma Health Akron CampusPlatelet mean volume Auto (Bld) [Entitic vol]Ordered By: Leigha Omar on 40-70-5219Ucbhcsuc mean volume (Bld) [Entitic vol]6.8 fL 6.6-10.1FCleveland Clinic Union HospitalPlatelets Auto (Bld) [#/Vol]Ordered By: Leigha Omar on 30-74-2647Fzssglcth (Bld) [#/Vol]238 10*3/tX597-863GazeoidwqSumma Health Akron CampusProtein [Mass/volume] in Serum or PlasmaOrdered By: Leigha Nelson on 87-39-6194Kibipkn [Mass/Vol]6.7 g/dL6.1-7.9[facility] CampusRBC Auto (Bld) [#/Vol]Ordered By: Leigha Omar on 63-59-4601ZES (Bld) [#/Vol]4.00 10*6/uL3.90-5.60[facility] Northerum or plasma alanine aminotransferase measurement without P-5'-P (enzymatic activi Ordered By: Leigha Nelson on 77-15-9031FYY No additional P-5'-P [Catalytic activity/Vol]26 U/O81-49OewpnaoepSelect Medical Specialty Hospital [facility] Northerum or plasma albumin/globulin mass ratioOrdered By: Leigha Omar on 08-31-2022 Albumin/Globulin [Mass ratio]1.4 {ratio}[facility] Northerum or plasma alkaline phosphatase measurement (enzymatic activity/volume)Ordered By: Leigha Nelson on 53-78-5153UFL [Catalytic activity/Vol]112 U/B80-52YgopikvvzSelect Medical Specialty Hospital [facility] Northerum or plasma anion gap determinationOrdered By: Leigha Nelson on 91-46-3301Xypjg gap [Moles/Vol]9.4 mmol/L6.0-15.0[facility] Northerum or plasma aspartate aminotransferase measurement (enzymatic activity/volume)Ordered By: Leigha Nelson on 20-29-8172PWR [Catalytic activity/Vol]32 U/M20-82IosmpxychSelect Medical Specialty Hospital [facility] Northerum or plasma calcium measurement (mass/volume)Ordered By: Leigha Nelson on 34-33-8627Iywhzxk [Mass/Vol]8.9 mg/dL8.2-10.2FCoshocton Regional Medical Centererum or plasma carcinoembryonic antigen measurement (mass/volume)Ordered By: Leigha Nelson on 60-22-1072Ivlmatxblalqooqb Ag [Mass/Vol]2.5 ng/mL0.0-3.0[facility] Northerum or plasma chloride measurement (moles/volume)Ordered By: Leigha Nelson on 34-75-6164Vqughafs [Moles/Vol]98 mmol/A79-626BrvzarlyrSelect Medical Specialty Hospital [facility] Northerum or plasma glucose measurement (mass/volume)Ordered By: Leigha Nelson on 12-93-5670Cpnvesu [Mass/Vol]104 mg/gR68-513IhifgfconSumma Health Akron CampusComment on above:ADA recommended reference rangeRandom Glucose Reference Range is dependent on time and content of last meal. Glucose of more than 200 mg/dL in a nonstressed, ambulatory subject supports the diagnosisof Diabetes Mellitus.Serum or plasma potassium measurement (moles/volume)Ordered By: Leigha Nelson on 30-75-7864Czfziocff [Moles/Vol]3.4 mmol/L3.5-5.1FCoshocton Regional Medical Centererum or plasma sodium measurement (moles/volume)Ordered By: Leigha Nelson on 71-63-0667Vyxvww [Moles/Vol]135 mmol/H995-903KedllcgfoSelect Medical Specialty Hospital [facility] Northerum or plasma total bilirubin measurement (mass/volume) Ordered By: Leigha Nelson on 69-04-5040Kzqrkoejn [Mass/Vol]0.8 mg/dL0.3-1.2 [facility] Northerum or plasma total carbon dioxide measurement (moles/volume)Ordered By: Leigha Nelson on 93-77-6990FB5 [Moles/Vol] 31.0 mmol/L22.0-30.0[facility] Northerum or plasma urea nitrogen measurement (mass/volume)Ordered By: Leigha Nelson on 41-16-5498Xdlw nitrogen [Mass/Vol]40 mg/dL9-23[facility] CampusT3, TOTAL (TRIIODOTHYRONINE)on 62-97-0423Z0, TOTAL42 ng/dLCritically cns76-724Lpi [facility] Medical CenterComment on above:Performed By: #### FT4, PSASC #### [facility] [address] [address] [address] Benito Linton T4on 31-03-5286Xqji T4 [Mass/Vol]0.11 ng/dLCritically low 0.76-1.46The [facility] Medical CenterComment on above:Performed By: #### VITAD #### [facility] [address] [address] [address] Benito Kelley 20-05-2319ZAM244.477 uIU/mLCritically high0.358-3.740The [facility] Medical CenterComment on above:Performed By: #### FT4 #### [facility] [address] [address] [address] Benito SchwartzGlucose Glucometer (BldC) [Mass/Vol]Ordered By: Ramesh Rascon on 18-02-6193Rvqbnfy [Mass/Vol]105 mg/dLSumma Health Akron CampusComment on above:Random Glucose Reference Range is dependent on time and content of last meal. Glucose of more than 200 mg/dL in a nonstressed, ambulatory subject supports the diagnosis of Diabetes Mellitus.T3, TOTAL (TRIIODOTHYRONINE)on 99-06-3798Q3, TOTAL56 ng/dLCritically dxt78-117Peb [facility] Medical CenterComment on above:Performed By: #### FT4, PSASC #### [facility] [address] [place] [address] Dr. Benito Linton T4on 22-31-8406Filq T4 [Mass/Vol]0.48 ng/dLCritically low 0.76-1.46The [facility] CenterComment on above:Performed By: #### VITAD #### [facility] [address] [place] [address] Dr. Benito DonohueHostefania 86-99-9707DUM90.173 uIU/mLCritically high0.358-3.740The [facility] CenterComment on above:Performed By: #### URTPCR #### [facility] [address] [place] [address] Dr. Benito SchwartzCOVID-19 SOFIAOrdered By: Ramesh Rascon on 07-19-2022 SARS-CoV+SARS-CoV-2 (COVID-19) Ag IA.rapid Ql (Resp)NegativeNegativeSumma Health Akron CampusComment on above:This is a duplicate Lindsay SARS Antigen (MADHU) result to be used for statistical tracking purpose only.No Panel InformationOrdered By: Ramesh Rascon on 97-47-4421AQCB Antigen (LFIA)[facility] CampusAlbumin [Mass/volume] in Serum or PlasmaOrdered By: Chivo Keller on 64-94-3674Szhrjun [Mass/Vol]3.9 g/dL3.2-5.5FC[facility] Union HospitalBasophils Auto (Bld) [#/Vol]Ordered By: Chivo Keller on 14-47-1680Cupqneasu (Bld) [#/Vol]0.1 10*3/uL0.0-0.2FCleveland Clinic Union HospitalBasophils/100 WBC Auto (Bld)Ordered By: Chivo Keller on 12-86-7803Oefcasred/100 WBC (Bld)0.8 %.[facility] CampusBlood hemoglobin measurement (mass/volume)Ordered By: Chivo Keller on 05-31-2022 Hemoglobin (Bld) [Mass/Vol]11.1 g/dL13.0-17.0[facility] Blood leukocytes automated count (number/volume)Ordered By: Chivo Keller on 91-15-6794CES (Bld) [#/Vol]8.8 10*3/uL4.5-11.0[facility] CT biopsyOrdered By: Danuta Kelly on 34-52-7740Zszrvlsxkdo [Mass/Vol]210 mg/eD862-118PdnpdrrgxSumma Health Akron CampusCreatinine (Bld) [Mass/Vol]Ordered By: Nikunj Shultz on 88-29-7908Gwnxseuznn [Mass/Vol]2.4 mg/dLHigh0.6-1.3 [facility] CampusComment on above:ER/ESD physician is notified/shown all ISTAT results. Critical values may be confirmed by laboratory testing if deemed necessary by ER attending doctor.ER/ESD physician is notified/shown all ISTAT results.Critical values may be confirmed by laboratorytesting ifdeemed necessary by ER attending doctor.Creatinine [Mass/Vol]Whole blood creatinine measurementHigh0.6-1.3FC[facility] Clinic Union HospitalCreatinine and Glomerular filtration rate.predicted panel (S/P/Bld)Ordered By: Chivo Keller on 25-48-1162Tfodqujusp [Mass/Vol]2.23 mg/dL0.64-1.27[facility] CampusEosinophils Auto (Bld) [#/Vol]Ordered By: Chivo Keller on 05-31-2022 Eosinophils (Bld) [#/Vol]0.4 10*3/uL0.0-0.45[facility] Eosinophils/100 WBC Auto (Bld)Ordered By: Chivo Keller on 05-31-2022 Eosinophils/100 WBC (Bld)4.1 %.[facility] CampusErythrocyte distribution width Auto (RBC) [Ratio]Ordered By: Chivo Keller on 05-31-2022 Erythrocyte distribution width (RBC) [Ratio]16.4 %12.0-14.8[facility] CampusEstimated glomerular filtration rate (GFR) non- Ordered By: Chivo Keller on 64-81-3661HKN/1.73 sq M.predicted among non- blacks MDRD (S/P/Bld) [Vol rate/Area]28 mL/MinSumma Health Akron Campus Ferritin [Mass/volume] in Serum or PlasmaOrdered By: Danuta Kelly on 09-61-2938Awwiexac [Mass/Vol]96.9 ng/mL23.9-336.2FCleveland Clinic Union HospitalFolate [Mass/volume] in Serum or PlasmaOrdered By: Danuta Kelly on 91-17-3440Tnwwcm [Mass/Vol]17.7 ng/mL>5.9[facility] Comment on above:Folate reference range: >5.9 ng/ml The WHO technical consultation on folate and vitamin b12 deficiencies has determined that folate concentrations less than 4 ng/ml are considered deficient.Folate reference range: >5.9 ng/mlThe WHO technical consultation on folate and vitamin k94cygkgsmpyqju has determined that folate concentrations lessthan 4 ng/ml are considered deficient.Globulin Calc (S) [Mass/Vol]Ordered By: Chivo Keller on 68-52-7015Gzcahhfr (S) [Mass/Vol] 3.4 g/dLSumma Health Akron CampusHematocrit Auto (Bld) [Volume fraction] Ordered By: Chivo Keller on 03-09-1797Qaahzgbtdg (Bld) [Volume fraction] 33.6 %38.8-50.0[facility] CampusIron [Mass/volume] in Serum or PlasmaOrdered By: Danuta Kelly on 87-76-0338Dllp [Mass/Vol]42 ug/sA56-860 [facility] CampusIron binding capacity [Mass/volume] in Serum or PlasmaOrdered By: Danuta Kelly on 07-55-4997Ulmg binding capacity [Mass/Vol]294 ug/pN786-578JcrmplqdgSumma Health Akron CampusIron saturation [Mass Fraction] in Serum or PlasmaOrdered By: Danuta Kelly on 10-53-1604Juiq saturation [Mass fraction]14.0 %20-50[facility] CampusLaboratory - Chemistry and Chemistry - challengeOrdered By: Danuta Kelly on 05-31-2022 Cobalamin (Vitamin B12) [Mass/Vol]463 pg/wT496-517FnmypegjdSumma Health Akron CampusLaboratory - Hematology and Cell countsOrdered By: Chivo Keller on 84-78-6530Slrscnxfi RBC/100 WBC (Bld) [Ratio]0.0 %0-0.5FCleveland Clinic Union HospitalLymphocytes Auto (Bld) [#/Vol]Ordered By: Chivo Keller on 29-19-3228Fcldjyqmpiy (Bld) [#/Vol]1.5 10*3/uL1.00-4.8[facility] CampusLymphocytes/100 WBC Auto (Bld)Ordered By: Chivo Keller on 05-31-2022 Lymphocytes/100 WBC (Bld)17.2 %.[facility] Auto (RBC) [Entitic mass]Ordered By: Chivo Keller on 77-91-9844YTZ (RBC) [Entitic mass]29.2 pg27.5-35.2FCleveland Clinic Union HospitalMCHC Auto (RBC) [Mass/Vol] Ordered By: Chivo Keller on 93-11-9826WEMH (RBC) [Mass/Vol]33.1 g/dL 32.5-35.6FCleveland Clinic Union HospitalMCV Auto (RBC) [Entitic vol]Ordered By: Chivo Keller on 50-33-7788LVP (RBC) [Entitic vol]88.2 fL83.5-101 [facility] CampusMonocytes Auto (Bld) [#/Vol]Ordered By: Chivo Keller on 76-41-9444Mtaqbdypd (Bld) [#/Vol]0.7 10*3/uL0.0-0.8[facility] CampusMonocytes/100 WBC Auto (Bld)Ordered By: Chivo Keller on 07-05-8564Csemqpbsa/100 WBC (Bld)8.0 %.[facility] Neutrophils Auto (Bld) [#/Vol]Ordered By: Chivo Keller on 05-31-2022 Neutrophils (Bld) [#/Vol]6.2 10*3/uL1.8-7.7[facility] Neutrophils/100 WBC Auto (Bld)Ordered By: Chivo Keller on 05-31-2022 Neutrophils/100 WBC (Bld)69.9 %.[facility] CampusNo Panel InformationOrdered By: Nikunj Shultz on 14-61-7816BHC Estimated GFR Pphvtemh13IyopakhtzSumma Health Akron CampusComment on above:GFR estimated reference range: According to KDOQI guidelines, <60 ml/min/1.73m2 is sufficient todiagnose a patient with chronic kidney disease.POC Estimated GFR Non- Evik93FxwipdfokSumma Health Akron Campus26[facility]32 [facility] CampusNo Panel InformationOrdered By: Chivo Keller on 19-81-1374Yhixfrmum GFR ()34 mL/MinSumma Health Akron CampusComment on above:GFR estimated reference range: According to KDOQI guidelines, <60 ml/min/1.73m2 is sufficient todiagnose a patient with chronic kidney disease.Pharmacy Creatinine Clearance (Chem31.14[facility] CampusPlatelet mean volume Auto (Bld) [Entitic vol]Ordered By: Chivo Keller on 11-93-2709Itkqrtyh mean volume (Bld) [Entitic vol]7.0 fL 6.6-10.1FCleveland Clinic Union HospitalPlatelets Auto (Bld) [#/Vol]Ordered By: Chivo Keller on 76-10-0812Regbqjppw (Bld) [#/Vol]308 10*3/dZ894-558 [facility] CampusProtein [Mass/volume] in Serum or PlasmaOrdered By: Chivo Keller on 08-53-3804Asfrzgl [Mass/Vol]7.3 g/dL6.1-7.9[facility] CampusRBC Auto (Bld) [#/Vol]Ordered By: Chivo Keller on 92-04-7528TZI (Bld) [#/Vol]3.81 10*6/uL3.90-5.60[facility] Northerum or plasma alanine aminotransferase measurement without P-5'-P (enzymatic activiOrdered By: Chivo Keller on 65-74-0662ICK No additional P-5'-P [Catalytic activity/Vol]17 U/Z27-47PovzllgqhSelect Medical Specialty Hospital [facility] Northerum or plasma albumin/globulin mass ratioOrdered By: Chivo Keller on 05-31-2022 Albumin/Globulin [Mass ratio]1.1 {ratio}[facility] Northerum or plasma alkaline phosphatase measurement (enzymatic activity/volume)Ordered By: Chivo Keller on 78-76-5186ZHT [Catalytic activity/Vol]140 U/L32-92 [facility] Northerum or plasma aspartate aminotransferase measurement (enzymatic activity/volume)Ordered By: Chivo Keller on 39-42-0670HHP [Catalytic activity/Vol]22 U/V55-05GkwuqscyjSelect Medical Specialty Hospital [facility] Northerum or plasma calcium measurement (mass/volume)Ordered By: Chivo Keller on 33-03-5792Rowpkcu [Mass/Vol]9.5 mg/dL8.2-10.2FCoshocton Regional Medical Centererum or plasma carcinoembryonic antigen measurement (mass/volume) Ordered By: Chivo Keller on 25-44-5608Qhstwghwcyvvnnce Ag [Mass/Vol]1.8 ng/mL0.0-3.0[facility] Northerum or plasma chloride measurement (moles/volume)Ordered By: Chivo Keller on 43-47-7657Tmfakqxe [Moles/Vol]101 mmol/E64-909LwoqgbanbSelect Medical Specialty Hospital - [facility] Northerum or plasma glucose measurement (mass/volume)Ordered By: Chivo Keller on 05-31-2022 Glucose [Mass/Vol]108 mg/lO67-435GfwytymioSumma Health Akron CampusComment on above:ADA recommended reference range Random Glucose [...] potassium measurement (moles/volume)Ordered By: Chivo Keller on 08-07-1037Kajceuqum [Moles/Vol]4.4 mmol/L3.5-5.1 [facility] Northerum or plasma sodium measurement (moles/volume)Ordered By: Chivo Keller on 87-62-7456Ijrhwj [Moles/Vol]140 mmol/H147-557WzvumrhdoSelect Medical Specialty Hospital - [facility] Northerum or plasma total bilirubin measurement (mass/volume)Ordered By: Chivo Keller on 84-31-1154Nzpsraare [Mass/Vol]0.5 mg/dL0.3-1.2FCoshocton Regional Medical Centererum or plasma total carbon dioxide measurement (moles/volume)Ordered By: Chivo Keller on 71-97-1585AF5 [Moles/Vol]29.7 mmol/L22.0-30.0[facility] Serum or plasma urea nitrogen measurement (mass/volume)Ordered By: Chivo Keller on 86-09-7616Wqxs nitrogen [Mass/Vol]42 mg/dL9-23[facility] CampusCBC W/DIFFon 40-63-6508YJT IMM GRANS0.1 10*3/uLNormal0.0-0.2The [facility] HospitalComment on above:Performed By: #### [id number] #### [facility] [address] [facility] [place] [address], USAABS NEUTROPHILS6.4 10*3/uLNormal1.6-7.6The [facility] Memorial HospitalComment on above:Performed By: #### [id number] #### [facility] [address] [facility] [place] [address], USABasophils (Bld) [#/Vol]0.0 10*3/uLNormal0.0-0.2The [facility] HospitalComment on above:Performed By: #### [id number] #### [facility] [address] [facility] [place] [place] [address], USABasophils/100 WBC (Bld)0.4 %Normal0.0-1.0The [facility] Memorial HospitalComment on above:Performed By: #### [id number] #### [facility] [address] [facility] [place] [address], USAEosinophils (Bld) [#/Vol]0.4 10*3/uLNormal0.0-0.5The [facility] HospitalComment on above:Performed By: #### [id number] #### [facility] [address] [place] [address], USAEosinophils/100 WBC (Bld)4.3 %Normal0.0-6.0The [facility] HospitalComment on above:Performed By: #### [id number] #### [facility] [address] [facility] [place] [place] [address], USAErythrocyte distribution width (RBC) [Ratio]15.9 %High 11.5-15.0The [facility] HospitalComment on above:Performed By: #### [id number] #### [facility] [address] [facility] [place] [place] [address], USAHematocrit (Bld) [Volume fraction]31.6 %Low39.0-50.0The [facility] HospitalComment on above:Performed By: #### [id number] #### [facility] [address] [facility] [place] [place] [address], USAHemoglobin (Bld) [Mass/Vol]10.0 g/dLLow13.0-17.0The [facility] HospitalComment on above:Performed By: #### [id number] #### [facility] [address] [facility] [place] [address], USAIMMATURE GRANS0.8 %Normal0.0-1.0The [facility] HospitalComment on above:Performed By: #### [id number] #### [facility] [address] [facility] [place] [address], USALymphocytes (Bld) [#/Vol]1.6 10*3/uLNormal1.2-4.0The [facility] HospitalComment on above:Performed By: #### 39632 #### [facility] [address] [place] [address], USALymphocytes/100 WBC (Bld)16.8 %Low20.0-45.0The [facility] HospitalComment on above:Performed By: #### 93899 #### [facility] [address] [place] [address], [facility] (RBC) [Entitic mass]28.7 fyOrtkyu23.0-33.0The [facility] HospitalComment on above:Performed By: #### 35931 #### [facility] [address] [place] [address], [facility] HOSPITALMCHC (RBC) [Mass/Vol]31.6 g/dLLow32.0-35.0The [facility] HospitalComment on above:Performed By: #### 93447 #### [facility] [address] [place] [address], [facility] HOSPITALMCV (RBC) [Entitic vol]90.5 aVKfvqos14.0-98.0The [facility] HospitalComment on above:Performed By: #### 90047 #### [facility] [address] [facility] [place] [place] [address], USAMonocytes (Bld) [#/Vol]0.8 10*3/uLNormal0.1-1.0The [facility] HospitalComment on above:Performed By: #### 82628 #### [facility] [address] [facility] [place] [address], USAMONOS9.0 %Normal5.0-12.0The [facility] HospitalComment on above:Performed By: #### 69434 #### [facility] [address] [place] [address], M[facility] VALLEY HOSPITALNeutrophils/100 WBC (Bld)68.7 %Hwqybo58.0-72.0The [facility] HospitalComment on above:Performed By: #### 74847 #### [facility] [address] [place] [address], USANucleated RBC/100 WBC (Bld) [Ratio]0 %Normal0-0The [facility] HospitalComment on above:Performed By: #### 13677 #### [facility] [address] [address], USAPLAT QHT615 10*3/qPAmwvox668-571Dcy [facility] HospitalComment on above:Performed By: #### 66925 #### [facility] [address] [address], USARBC (Bld) [#/Vol]3.49 10*6/uLLow4.20-5.70The [facility] HospitalComment on above:Performed By: #### 47249 #### [facility] [address] [facility] [place] [address], USAWBC (Bld) [#/Vol]9.29 10*3/uLNormal4.00-10.60The [facility] HospitalComment on above:Performed By: #### 20830 #### [facility] [address] [facility] [place] [address], USAIMMUNOGLOBULIN Jovany 35-32-7066PCEcbeocNiwProvidence HospitalComment on above:Result Comment: Test Performed by [employer] [address] [place] [id number] - Released 05/27/2022 12:45IMMUNOGLOBULIN E308 IU/mLHigh<101The [facility] Memorial HospitalTHYROID-STIMULATING IMMUNOGLOBULINon 95-25-6470Sqprdvc Sim Immunoglobulin<0.56Zdmbhg8.00-0.55 Comment on above:Performed By: #### CBC #### [facility] [address] [address] [address] Benito SchwartzTHYROTROPIN RECEPTOR ABon 26-53-3791Icdqsiqmoye Receptor Ab, Serum<1.33Mjijjl1.00-1.75The [facility] CenterComment on above:Performed By: #### CBC #### [facility] [address] [address] [address] Benito SchwartzPTH INTACTon 94-44-4358CSX, Hkzles16 pg/kJLohoue34-57Gyg [facility] CenterComment on above:Performed By: #### CBC #### [facility] [address] [address] [address] Benito SchwartzT3, TOTAL (TRIIODOTHYRONINE)on 84-83-1938O1, TOTAL80 ng/dLNormal 71-180The [facility] CenterComment on above:Performed By: #### URTPCR #### [facility] [address] [place] [address] Dr. Benito Kimble D 25-[place] LABCORPon 79-14-6079Jgcrnns D, 25-Ftzxfxd57.3 ng/mL Ltovds32.0-100.0The [facility] CenterComment on above:Result Comment: Vitamin D deficiency has been defined by the [place] of Medicine and an Endocrine Society practice guideline as a level of serum 25-OH vitamin D less than 20 ng/mL (1,2). The Endocrine Society went on to further define vitamin D insufficiency as a level between 21 and 29 ng/mL (2). 1. IOM ([place] of Medicine). 2010. Dietary reference intakes for calcium and D. [place]: The National Academies Press. 2. Annamarie MF, Milena [place], Jamin BURGESS, et al. Evaluation, treatment, and prevention of vitamin D deficiency: an Endocrine Society clinical practice guideline. JCEM. 2010; 96(7):1911-30.Performed By: #### URTPCR #### [facility] [address] [place] [address] Dr. Benito SchwartzCBC AUTO DIFFon 68-91-8047IONI #0.0 103/ulNormal0.0-0.1The [facility] CenterComment on above:Performed By: #### CBC #### [facility] [address] [place] [address] Dr. Benito SchwartzBasophils/100 WBC (Bld)0.2 %Normal0.2-2.0 Comment on above:Performed By: #### CBC #### [facility] [address] [place] [address] Dr. Benito Deluna #0.4 103/ulNormal0.0-0.7The [facility] CenterComment on above: Performed By: #### CBC #### [facility] [address] [place] [address] Dr. Benito Wanosinophils/100 WBC (Bld)4.4 %Normal0.9-7.0 Comment on above:Performed By: #### CBC #### [facility] [address] [place] [address] Dr. Benito Wanrythrocyte distribution width (RBC) [Ratio]15.0 %Nrcazx55.0-15.0 Comment on above:Performed By: #### CBC #### [facility] [address] [place] [address] Dr. Benito SchwartzHematocrit (Bld) [Volume fraction]29.8 %Critically low42.0-54.0 Comment on above:Performed By: #### CBC #### [facility] [address] [place] [address] Dr. Benito SchwartzHemoglobin (Bld) [Mass/Vol]9.7 g/dLCritically low14.0-18.0The [facility] CenterComment on above:Performed By: #### CBC #### [facility] [address] [place] [address] Dr. Benito Carias #0.06 10e3/ulCritically high0.00-0.03The [facility] Comment on above:Performed By: #### CBC #### [facility] [address] [place] [address] Dr. Benito Carias %0.7 %Critically high0.0-0.5The [facility] CenterComment on above:Performed By: #### CBC #### [facility] [address] [place] [address] Dr. Benito Negrete #1.9 103/ulNormal1.2-3.8The [facility] CenterComment on above:Performed By: #### CBC #### [facility] [address] [place] [address] Dr. Benito Lozanomphocytes/100 WBC (Bld)21.1 %Lcwefj94.5-60.0The [facility] CenterComment on above:Performed By: #### CBC #### [facility] [address] [place] [address] Dr. Benito Kessler DIFF REQNONormalThe [facility] CenterComment on above: Performed By: #### CBC #### [facility] [address] [place] [address] Dr. Benito Quarles (RBC) [Entitic mass]29.0 xnWubbyh40.9-34.0The [facility] CenterComment on above:Performed By: #### CBC #### [facility] [address] [place] [address] Dr. Benito Lawson (RBC) [Mass/Vol]32.6 g/uPAhtjir86.9-35.2The [facility] CenterComment on above:Performed By: #### CBC #### [facility] [address] [place] [address] Dr. Benito Lawson (RBC) [Entitic vol]89.0 nGUgqvku40.0-94.0The [facility] CenterComment on above:Performed By: #### CBC #### [facility] [address] [place] [address] Dr. Benito Colin #0.9 103/ulCritically high0.3-0.8ThTrumbull Memorial Hospital Comment on above:Performed By: #### CBC #### [facility] [address] [place] [address] Dr. Benito Francoocytes/100 WBC (Bld)9.9 %Normal1.7-12.0 Comment on above:Performed By: #### CBC #### [facility] [address] [place] [address] Dr. Benito Herrera #5.8 103/ulNormal1.4-6.5The [facility] CenterComment on above:Performed By: #### CBC #### [facility] [address] [place] [address] Dr. Benito Herediautrophils/100 WBC (Bld)63.7 %Qupoar99.0-75.0The [facility] CenterComment on above:Performed By: #### CBC #### [facility] [address] [place] [address] Dr. Benito SchwartzPlatelet mean volume (Bld) [Entitic vol]8.7 fLCritically low 9.5-13.5The [facility] CenterComment on above:Performed By: #### CBC #### [facility] [address] [place] [address] Dr. Benito SchwartzPLT253 103/ymZfzovm210-230Qyj [facility] CenterComment on above: Performed By: #### CBC #### [facility] [address] [place] [address] Dr. Benito SchwartzRBC3.35 106/ulCritically low4.70-6.10The [facility] CenterComment on above:Performed By: #### CBC #### [facility] [address] [place] [address] Dr. Benito SchwartzWBC9.1 103/ulNormal4.0-11.0The [facility] CenterComment on above: Performed By: #### CBC #### [facility] [address] [place] [address] Dr. Benito SchwartzFREE T4on 70-20-9924Iyaz T4 [Mass/Vol]1.25 ng/dLNormal0.76-1.46 The [facility] CenterComment on above:Performed By: #### VITAD #### [facility] [address] [place] [address] Dr. Benito SchwartzMAGNESIUMon 83-42-4537Avzrktdvm [Mass/Vol]2.1 mg/dLNormal1.8-2.4 The [facility] CenterComment on above:Performed By: #### FT4 #### [facility] [address] [address] [address] Benito SchwartzPHOSPHORUSon 66-77-6285Xncrgftqo [Mass/Vol]4.2 mg/dLNormal2.6-4.7 The [facility] CenterComment on above:Performed By: #### FT4 #### [facility] [address] [address] [address] Benito SchwartzPROF CHEM 8 (BAS METB)on 15-53-7935Vozxd gap [Moles/Vol]13.4 mmol/LNormalThe [facility] CenterComment on above:Performed By: #### FT4 #### [facility] [address] [place] [address] Dr. Benito SchwartzCalcium [Mass/Vol]9.1 mg/dLNormal8.5-10.1The [facility] Comment on above:Performed By: #### FT4 #### [facility] [address] [place] [address] Dr. Benito SchwartzChloride [Moles/Vol]103 mmol/GYotilf46-574Ruw [facility] Comment on above:Performed By: #### FT4 #### [facility] [address] [place] [address] Dr. Benito SchwartzCO2 [Moles/Vol]28.6 mmol/UMvtkkb09.0-32.0The [facility] Comment on above:Performed By: #### FT4 #### [facility] [address] [place] [address] Dr. Benito SchwartzCreatinine [Mass/Vol]2.30 mg/dLCritically high0.70-1.30The [facility] CenterComment on above:Performed By: #### FT4 #### [facility] [address] [place] [address] Dr. Oliver ChangEGFR-AF LRCFHTBD08 mL/min/1.38k3Gxxlwubope low>=60The [facility] CenterComment on above:Performed By: #### FT4 #### [facility] [address] [address] [address] Benito WanGFR-NON AF MVZXCLAD99 mL/min/1.36t5Kdtdwsxdaw low>=60The [facility] CenterComment on above:Performed By: #### FT4 #### [facility] [address] [place] [address] Dr. Benito SchwartzGlucose [Mass/Vol]123 mg/dLCritically drqg67-555Qgf [facility] CenterComment on above:Performed By: #### FT4 #### [facility] [address] [address] [address] Benito SchwartzPotassium [Moles/Vol]4.0 mmol/LNormal3.5-5.1The [facility] Comment on above:Performed By: #### FT4 #### [facility] [address] [place] [address] Dr. Benito SchwartzSodium [Moles/Vol]141 mmol/ZXvrswu136-629Gan [facility] Comment on above:Performed By: #### FT4 #### [facility] [address] [place] [address] Dr. Benito SchwartzUrea nitrogen [Mass/Vol]51.0 mg/dLCritically high7.0-18.0The [facility] CenterComment on above:Performed By: #### FT4 #### [facility] [address] [place] [address] Dr. Benito SchwartzUrea nitrogen/Creatinine [Mass ratio]22.2 mg/mgNormalThe [facility] CenterComment on above:Performed By: #### FT4 #### [facility] [address] [place] [address] Dr. Benito Kelley 19-48-0877IHP Qnm[IU]/LCritically low0.358-3.740The [facility] CenterComment on above:Performed By: #### CBC #### [facility] [address] [place] [address] Dr. Benito Bowden 45-47-1979Avqsbwkes Ql (U)NegativeNormalNEGATIVEThe [facility] CenterComment on above:Performed By: #### URTPCR #### [facility] [address] [address] [address] Benito SchwartzClarity (U)CLEARNormalCLEARComment on above: Performed By: #### URTPCR #### [facility] [address] [address] [address] Benito Mendietalor (U)LT. YELLOWNormalYELLOWComment on above:Performed By: #### URTPCR #### [facility] [address] [address] [address] Benito SchwartzGlucose Ql (U)NegativeNormalNEGATIVEComment on above:Performed By: #### URTPCR #### [facility] [address] [place] [address] Dr. Benito SchwartzHemoglobin Ql (U)NegativeNormalNEGATIVEFlower Hospital on above:Performed By: #### URTPCR #### [facility] [address] [address] [address] Benito Echavarriaones Ql (U)NegativeNormalNEGATIVEComment on above:Performed By: #### URTPCR #### [facility] [address] [place] [address] Dr. Benito SchwartzLEUKOCYTESNegativeNormalNEGATIVEComsparrow ionia hospital on above:Performed By: #### URTPCR #### [facility] [address] [address] [address] Benito SchwartzNitrite Ql (U)NegativeNormalNEGATIVEComment on above:Performed By: #### URTPCR #### [facility] [address] [address] [address] Benito SchwartzpH (U)5.5 [pH]Normal5-9Comment on above: Performed By: #### URTPCR #### [facility] [address] [address] [address] Benito SchwartzSPEC GRAVITY1.586Ujlgvg9.005-<=1.025The [facility] CenterComment on above:Performed By: #### URTPCR #### [facility] [address] [address] [address] Benito Edwards PROTEINNegativeNormalNEGATIVE/ TRACEThe [facility] Comment on above:Performed By: #### URTPCR #### [facility] [address] [place] [address] Dr. Benito Mosesbilinogen Qn (U)0.2 {Jagruti'U}/dLNormal0.2 - 1.0The [facility] CenterComment on above:Performed By: #### URTPCR #### [facility] [address] [place] [address] Dr. Benito Holder T PROTEIN CREAT RATIOon 76-59-5516Cqfpuwo (U) [Mass/Vol] 18.3 mg/dLCritically high<=12.0The [facility] CenterComment on above:Performed By: #### URTPCR #### [facility] [address] [place] [address] Dr. Benito Bermudez PROT CREAT RAT0.39NormalThe [facility] CenterComment on above: Performed By: #### URTPCR #### [facility] [address] [place] [address] Dr. Benito Holder CREAT47.44 mg/rEQsjzxj71.00-300.00 Comment on above:Performed By: #### URTPCR #### [facility] [address] [place] [address] Dr. Benito SchwartzHEMOGLOBINon 53-82-7353Aydyrqzzah (Bld) [Mass/Vol]9.6 g/dL Critically low14.0-18.0The [facility] CenterComment on above:Performed By: #### FT4, PSASC #### [facility] [address] [place] [address] Dr. Benito Godwin THY SCAN W Lenin 25-51-8907UP THY SCAN W UPTEXAMINATION: NM THY SCAN [...] Electronically authenticated by: JJ HI Date: 2022-04-28 09:05[facility] HospitalT[facility], TOTAL (TRIIODOTHYRONINE)on 72-50-7568D3, BHTYK954 ng/dL Hjgjcd43-357Haq [facility] CenterComment on above:Performed By: #### B12FOL, FETIBC #### [facility] [address] [place] [address] Dr. Benito Linton T3on 24-51-4757RZXC T36.07 pg/mlLCritically high2.18-3.98The [facility] CenterComment on above:Performed By: #### TSH, FT3, BMP #### [facility] [address] [place] [address] Dr. Benito Linton T4on 28-28-3052Lpga T4 [Mass/Vol]2.62 ng/dLCritically high 0.76-1.46The [facility] CenterComment on above:Performed By: #### TSH, FT3, BMP #### [facility] [address] [place] [address] Dr. Benito SchwartzPROShelly CHEM 8 (BAS METB)on 46-71-6254Aruaf gap [Moles/Vol]13.5 mmol/LNormalThe [facility] CenterComment on above:Performed By: #### B12FOL, FETIBC #### [facility] [address] [place] [address] Dr. Benito SchwartzCalcium [Mass/Vol]9.9 mg/dLNormal8.5-10.1 Comment on above:Performed By: #### B12FOL, FETIBC #### [facility] [address] [address] [address] Benito SchwartzChloride [Moles/Vol]105 mmol/JRnsrer50-503Oti Comment on above:Performed By: #### B12FOL, FETIBC #### [facility] [address] [place] [address] Dr. Benito SchwartzCO2 [Moles/Vol]26.5 mmol/UFhtuua45.0-32.0 Comment on above:Performed By: #### B12FOL, FETIBC #### [facility] [address] [address] [address] Benito SchwartzCreatinine [Mass/Vol]2.33 mg/dLCritically high0.70-1.30Comment on above:Performed By: #### B12FOL, FETIBC #### [facility] [address] [place] [address] Dr. Oliver ChangEGFR-AF OEAJSSMW98 mL/min/1.52n0Icrdgfbqco low>=60The [facility] CenterComment on above:Performed By: #### B12FOL, FETIBC #### [facility] [address] [address] [address] Benito WanGFR-NON AF FAATOMKJ87 mL/min/1.51t7Ptnhauctaf low>=60The [facility] CenterComment on above:Performed By: #### B12FOL, FETIBC #### [facility] [address] [address] [address] Benito SchwartzGlucose [Mass/Vol]104 mg/zZZxrwgm79-164Uuz Comment on above:Performed By: #### B12FOL, FETIBC #### [facility] [address] [address] [address] Benito SchwartzPotassium [Moles/Vol]5.0 mmol/LNormal3.5-5.1 Comment on above:Performed By: #### B12FOL, FETIBC #### [facility] [address] [place] [address] Dr. Benito SchwartzSodium [Moles/Vol]140 mmol/ECtwgjr634-409Tzb [facility] Comment on above:Performed By: #### B12FOL, FETIBC #### [facility] [address] [place] [address] Dr. Benito Andrade nitrogen [Mass/Vol]60.0 mg/dLCritically high7.0-18.0The [facility] CenterComment on above:Performed By: #### B12FOL, FETIBC #### [facility] [address] [place] [address] Dr. Benito Andrade nitrogen/Creatinine [Mass ratio]25.8 mg/mgNormalThe [facility] CenterComment on above:Performed By: #### B12FOL, FETIBC #### [facility] [address] [place] [address] Dr. Benito Kelley 40-83-1436LRB Qnm[IU]/LCritically low0.358-3.740The [facility] CenterComment on above:Performed By: #### TSH, FT3, BMP #### [facility] [address] [place] [address] Dr. Benito Dacosta METABOLIC PANELon 15-67-3117Gjamahj [Mass/Vol]9.1 mg/dL Normal8.6-10.3The [facility] HospitalComment on above:Order Comment: No: Do not add to previous drawPerformed By: #### 60968, 11930 #### [facility] [address] [place] [address], USAChloride [Moles/Vol]106 mmol/FAjozno01-827Dun [facility] HospitalComment on above:Order Comment: No: Do not add to previous drawPerformed By: #### [id number], [id number] #### [facility] [address] [place] [address], [place]ACO2 [Moles/Vol]25 mmol/KQnrluo99-91Dzb [facility] HospitalComment on above:Order Comment: No: Do not add to previous draw Performed By: #### 14906, [id number] #### [facility] [address] [place] [address], USACreatinine [Mass/Vol]2.12 mg/dLHigh0.70-1.30The [facility] HospitalComment on above:Order Comment: No: Do not add to previous drawPerformed By: #### 45081, 77996 #### [facility] [address] [place] [address], USAeGFR- Jsvjuano88 ml/min/1.73sq mAbnormal>60The [facility] HospitalComment on above:Order Comment: No: Do not add to previous drawResult Comment: Calculation may not be valid for patients over 70 yearsPerformed By: #### 24490, 77542 #### [facility] [address] [place] [address], USAeGFR- non- Wtxlpurx06 ml/min/1.73sq mAbnormal>60The [facility] HospitalComment on above:Order Comment: No: Do not add to previous drawResult Comment: Calculation may not be valid for patients over 70 yearsPerformed By: #### 36800, 93193 #### [facility] [address] [place] [address], USAGlucose [Mass/Vol]93 mg/oLZbuxck09-014Wvw [facility] HospitalComment on above:Order Comment: No: Do not add to previous drawPerformed By: #### 56301, 34414 #### [facility] [address] [place] [address], USAPotassium [Moles/Vol]3.9 mmol/LNormal3.5-5.1The [facility] HospitalComment on above:Order Comment: No: Do not add to previous drawPerformed By: #### 86873, 37672 #### [facility] [address] [place] [address], USASodium [Moles/Vol]141 mmol/BPeovhp650-988Xip [facility] HospitalComment on above:Order Comment: No: Do not add to previous drawPerformed By: #### 00972, 19503 #### [facility] [address] [place] [address], USAUrea nitrogen [Mass/Vol]56 mg/dLHigh7-25The [facility] HospitalComment on above:Order Comment: No: Do not add to previous drawPerformed By: #### 73822, 91725 #### [facility] [address] [place] [address], USACBC COMPLETE BLOOD COUNTon 28-01-0348Nkrlotakddo distribution width (RBC) [Ratio]13.6 %Pledzt08.5-15.0The [facility] HospitalComment on above:Order Comment: No: Do not add to previous draw Performed By: #### [id number] #### [facility] [address] [place] [address], USAHematocrit (Bld) [Volume fraction]26.2 %Low39.0-50.0The [facility] HospitalComment on above:Order Comment: No: Do not add to previous drawPerformed By: #### [id number] #### [facility] [address] [place] [address], USAHemoglobin (Bld) [Mass/Vol]8.7 g/dLLow13.0-17.0The [facility] HospitalComment on above:Order Comment: No: Do not add to previous drawPerformed By: #### [id number] #### [facility] [address] [place] [address], [facility] HOSPITALMCH (RBC) [Entitic mass]29.3 lnKgujpr99.0-33.0The [facility] HospitalComment on above:Order Comment: No: Do not add to previous drawPerformed By: #### [id number] #### [facility] [address] [place] [address], USAMCHC (RBC) [Mass/Vol]33.2 g/qTMrjwbv81.0-35.0The [facility] HospitalComment on above:Order Comment: No: Do not add to previous drawPerformed By: #### 34553 #### [facility] [address] [place] [address], USAMCV (RBC) [Entitic vol]88.2 fHFbbxkr38.0-98.0The [facility] HospitalComment on above:Order Comment: No: Do not add to previous drawPerformed By: #### 22095 #### [facility] [address] [place] [address], USANucleated RBC/100 WBC (Bld) [Ratio]0 %Normal0-0The [facility] HospitalComment on above:Order Comment: No: Do not add to previous drawPerformed By: #### [id number] #### [facility] [address] [place] [address], USAPLAT HES688 10*3/mYEaiect959-285Pnr [facility] HospitalComment on above:Order Comment: No: Do not add to previous draw Performed By: #### 12343 #### [facility] [address] [place] [address], USARBC (Bld) [#/Vol]2.97 10*6/uLLow4.20-5.70The [facility] HospitalComment on above:Order Comment: No: Do not add to previous drawPerformed By: #### 36112 #### [facility] [address] [place] [address], USAWBC (Bld) [#/Vol]5.20 10*3/uLNormal4.00-10.60The [facility] HospitalComment on above:Order Comment: No: Do not add to previous drawPerformed By: #### 40505 #### [facility] [address] [place] [address], USAMAGNESIUM BLOODon 83-80-3623Nxnxqmish [Mass/Vol]2.2 mg/dL Normal1.9-2.7The [facility] HospitalComment on above:Order Comment: No: Do not add to previous drawPerformed By: #### 55698, 99443 #### [facility] [address] [place] [address], USAPOC GLUCOSE LABon 76-03-5314Vmcykrm [Mass/Vol]99 mg/dL Fnzbgw36-399Azw [facility] HospitalComment on above:Performed By: #### 41574 #### [facility] [address] [place] [address], USABASIC METABOLIC PANELon 52-96-2160Wmbrsbc [Mass/Vol]9.1 mg/dLNormal8.6-10.3The [facility] HospitalComment on above:Order Comment: No: Do not add to previous drawPerformed By: #### 58666 #### [facility] [address] [place] [address], USAChloride [Moles/Vol]106 mmol/PLdvzpb09-555Frr [facility] HospitalComment on above:Order Comment: No: Do not add to previous drawPerformed By: #### 82142 #### [facility] [address] [place] [address], USACO2 [Moles/Vol]25 mmol/BMpwbmm50-75Cpm [facility] HospitalComment on above:Order Comment: No: Do not add to previous draw Performed By: #### 93072 #### [facility] [address] [place] [address], USACreatinine [Mass/Vol]2.07 mg/dLHigh0.70-1.30The [facility] HospitalComment on above:Order Comment: No: Do not add to previous drawPerformed By: #### 79067 #### [facility] [address] [place] [address], USAeGFR- Dfnwnyim55 ml/min/1.73sq mAbnormal>60The [facility] HospitalComment on above:Order Comment: No: Do not add to previous drawResult Comment: Calculation may not be valid for patients over 70 yearsPerformed By: #### [id number] #### [facility] [address] [place] [address], USAeGFR- non- Vyfrdshd07 ml/min/1.73sq mAbnormal>60The [facility] HospitalComment on above:Order Comment: No: Do not add to previous drawResult Comment: Calculation may not be valid for patients over 70 yearsPerformed By: #### 92444 #### [facility] [address] [place] [address], USAGlucose [Mass/Vol]94 mg/nAGdeojm55-178Zri [facility] HospitalComment on above:Order Comment: No: Do not add to previous drawPerformed By: #### 11003 #### [facility] [address] [place] [address], USAPotassium [Moles/Vol]3.9 mmol/LNormal3.5-5.1The [facility] HospitalComment on above:Order Comment: No: Do not add to previous drawPerformed By: #### 04912 #### [facility] [address] [place] [address], USASodium [Moles/Vol]144 mmol/KMngviy096-712Jgw [facility] HospitalComment on above:Order Comment: No: Do not add to previous drawPerformed By: #### 94449 #### [facility] [address] [place] [address], USAUrea nitrogen [Mass/Vol]54 mg/dLHigh7-25The [facility] HospitalComment on above:Order Comment: No: Do not add to previous drawPerformed By: #### 32774 #### [facility] [address] [place] [id number], [facility] COMPLETE BLOOD COUNTon 04-69-3236Ewktlnclzzc distribution width (RBC) [Ratio]13.5 %Prfyma12.5-15.0The [facility] HospitalComment on above:Order Comment: No: Do not add to previous draw Performed By: #### 66909 #### [facility] [address] [place] [address], USAHematocrit (Bld) [Volume fraction]27.5 %Low39.0-50.0The [facility] HospitalComment on above:Order Comment: No: Do not add to previous drawPerformed By: #### 86926 #### [facility] [address] [place] [address], [facility] HOSPITALHemoglobin (Bld) [Mass/Vol]8.9 g/dLLow13.0-17.0The [facility] HospitalComment on above:Order Comment: No: Do not add to previous drawPerformed By: #### 49717 #### [facility] [address] [place] [address], [facility] (RBC) [Entitic mass]29.2 qnXyvwwk82.0-33.0The [facility] HospitalComment on above:Order Comment: No: Do not add to previous drawPerformed By: #### 81718 #### [facility] [address] [place] [address], [facility] (RBC) [Mass/Vol]32.4 g/wPSnmsul12.0-35.0The [facility] HospitalComment on above:Order Comment: No: Do not add to previous drawPerformed By: #### [id number] #### [facility] [address] [place] [address], [facility] (RBC) [Entitic vol]90.2 aQLgprpx76.0-98.0The [facility] HospitalComment on above:Order Comment: No: Do not add to previous drawPerformed By: #### [id number] #### [facility] [address] [place] [address], USANucleated RBC/100 WBC (Bld) [Ratio]0 %Normal0-0The [facility] HospitalComment on above:Order Comment: No: Do not add to previous drawPerformed By: #### 90506 #### [facility] [address] [place] [address], USAPLAT UGU897 10*3/bGQsvxjc659-325Mbh [facility] HospitalComment on above:Order Comment: No: Do not add to previous draw Performed By: #### 50623 #### [facility] [address] [place] [address], USARBC (Bld) [#/Vol]3.05 10*6/uLLow4.20-5.70The [facility] HospitalComment on above:Order Comment: No: Do not add to previous drawPerformed By: #### 69658 #### [facility] [address] [place] [address], USAWBC (Bld) [#/Vol]6.02 10*3/uLNormal4.00-10.60The [facility] HospitalComment on above:Order Comment: No: Do not add to previous drawPerformed By: #### 72502 #### [facility] [address] [place] [address], USACardiovascular Lab Reporton [id number] Lab ReportUnKettering [facility]: [id number] Physician: Sriram Rick, Department of M.D. Medicine Service Date: 03/31/2022 Division of Birthdate: 1940 Cardiology Room #: 3AB [id number] Adult Cardiovascular Services [facility] [address] [place], [place] [address] Cardiovascular Laboratory Report FINAL IMPRESSIONS: 1. Moderately [...] right internal jugular vein was obtained. A 6-Chilean 11 cm sheath was inserted without difficulty. [...] P/Sriram Rick M.D. Date Trans: 04/01/2022 02:03 A/mmo DN_JN:[id number] cc: Yas Linda D.O. [address] [place] [id number] HospitalHEMOGLOBIN A1Con 33-31-5601Pjmdloz [Moles/Vol]137 mmol/LNormalThe [facility] HospitalComment on above:Order Comment: If not done in EDNo: Do not add to previous drawPerformed By: #### 11782 #### [facility] [address] [place] [address], PAMVgP1k (Bld) [Mass fraction]6.4 %High4.0-6.0The [facility] HospitalComment on above:Order Comment: If not done in EDNo: Do not add to previous drawPerformed By: #### 99275 #### [facility] [address] [place] [address], USAMAGNESIUM BLOODon 28-71-8887Mildsuevq [Mass/Vol]2.2 mg/dL Normal1.9-2.7The [facility] HospitalComment on above:Order Comment: No: Do not add to previous drawPerformed By: #### 99983 #### [facility] [address] [place] [address], USAPOC GLUCOSE LABon 72-12-3103Jmtbruu [Mass/Vol]114 mg/dLHigh 70-100The [facility] HospitalComment on above:Performed By: #### 82810 #### [facility] [address] [place] [address], USAGlucose [Mass/Vol]117 mg/pZByuu39-471Kpz [facility] HospitalComment on above:Performed By: #### 41617 #### [facility] [address] [place] [address], USAGlucose [Mass/Vol]139 mg/xVTfvk04-760Dtg [facility] HospitalComment on above:Performed By: #### 28434 #### [facility] [address] [place] [address], USAGlucose [Mass/Vol]98 mg/pEFcduxh69-623Apa [facility] HospitalComment on above:Performed By: #### 04881 #### [facility] [address] [place] [address], USABASIC METABOLIC PANELon 70-84-9179Gedcsbn [Mass/Vol]9.1 mg/dLNormal8.6-10.3The [facility] HospitalComment on above:Order Comment: No: Do not add to previous drawPerformed By: #### 20925, 37832, 13613, 28518, 15386 #### [facility] [address] [place] [address], USAChloride [Moles/Vol]104 mmol/FGiogkk76-856Tvm [facility] HospitalComment on above:Order Comment: No: Do not add to previous drawPerformed By: #### 15504, 41506, 56896, 00830, 16747 #### [facility] [address] [place] [address], USACO2 [Moles/Vol]27 mmol/UXpmeki17-22Efa [facility] HospitalComment on above:Order Comment: No: Do not add to previous draw Performed By: #### 23228, 47981, 53063, 09143, 46945 #### [facility] [address] [place] [address], USACreatinine [Mass/Vol]2.59 mg/dLHigh0.70-1.30The [facility] HospitalComment on above:Order Comment: No: Do not add to previous drawPerformed By: #### 41961, 53263, 16673, 29093, 97268 #### [facility] [address] [place] [address], USAeGFR- Awhyuyjz34 ml/min/1.73sq mAbnormal>60The [facility] HospitalComment on above:Order Comment: No: Do not add to previous drawResult Comment: Calculation may not be valid for patients over 70 yearsPerformed By: #### 12855, 59954, 64442, 86156, 05949 #### [facility] [address] [place] [address], USAeGFR- non- Qwzidqkc24 ml/min/1.73sq mAbnormal>60The [facility] HospitalComment on above:Order Comment: No: Do not add to previous drawResult Comment: Calculation may not be valid for patients over 70 yearsPerformed By: #### 36194, 64137, 11674, 61521, 94542 #### [facility] [address] [place] [address], USAGlucose [Mass/Vol]90 mg/aMCmpdib08-579App [facility] HospitalComment on above:Order Comment: No: Do not add to previous drawPerformed By: #### 28640, 81083, 49095, 38878, 52149 #### [facility] [address] [place] [address], USAPotassium [Moles/Vol]4.2 mmol/LNormal3.5-5.1The [facility] HospitalComment on above:Order Comment: No: Do not add to previous drawPerformed By: #### 64560, 56955, 79683, 09853, 98169 #### [facility] [address] [place] [address], USASodium [Moles/Vol]141 mmol/QJynozd190-443Sie [facility] HospitalComment on above:Order Comment: No: Do not add to previous drawPerformed By: #### 12924, 85046, 32849, 63681, 49472 #### [facility] [address] [place] [address], USAUrea nitrogen [Mass/Vol]55 mg/dLHigh7-25The [facility] HospitalComment on above:Order Comment: No: Do not add to previous drawPerformed By: #### 50465, 81671, 75607, 70003, 45028 #### [facility] [address] [place] [address], USACBC COMPLETE BLOOD COUNTon 55-80-0032Oxtnptocavx distribution width (RBC) [Ratio]13.6 %Cjjdln85.5-15.0The [facility] HospitalComment on above:Order Comment: No: Do not add to previous draw Performed By: #### 35532 #### [facility] [address] [place] [address], USAHematocrit (Bld) [Volume fraction]27.1 %Low39.0-50.0The [facility] HospitalComment on above:Order Comment: No: Do not add to previous drawPerformed By: #### 94471 #### [facility] [address] [place] [address], USAHemoglobin (Bld) [Mass/Vol]8.7 g/dLLow13.0-17.0The [facility] HospitalComment on above:Order Comment: No: Do not add to previous drawPerformed By: #### 22198 #### [facility] [address] [place] [address], USAMCH (RBC) [Entitic mass]28.8 ssFvkbpu77.0-33.0The [facility] HospitalComment on above:Order Comment: No: Do not add to previous drawPerformed By: #### 30256 #### [facility] [address] [place] [address], USAMCHC (RBC) [Mass/Vol]32.1 g/zYMuxlni91.0-35.0The [facility] HospitalComment on above:Order Comment: No: Do not add to previous drawPerformed By: #### 26316 #### [facility] [address] [place] [address], USAMCV (RBC) [Entitic vol]89.7 rUGoidri62.0-98.0The [facility] HospitalComment on above:Order Comment: No: Do not add to previous drawPerformed By: #### 21472 #### [facility] [address] [place] [address], USANucleated RBC/100 WBC (Bld) [Ratio]0 %Normal0-0The [facility] HospitalComment on above:Order Comment: No: Do not add to previous drawPerformed By: #### 21842 #### [facility] [address] [place] [address], USAPLAT ALE112 10*3/cCBlipzh935-548Vrm [facility] HospitalComment on above:Order Comment: No: Do not add to previous draw Performed By: #### 18774 #### [facility] [address] [place] [address], USARBC (Bld) [#/Vol]3.02 10*6/uLLow4.20-5.70The [facility] HospitalComment on above:Order Comment: No: Do not add to previous drawPerformed By: #### 80554 #### [facility] [address] [address], USAWBC (Bld) [#/Vol]5.93 10*3/uLNormal4.00-10.60The [facility] HospitalComment on above:Order Comment: No: Do not add to previous drawPerformed By: #### 57969 #### [facility] [address] [place] [address], USAFREE T4on 61-26-4654Ucup T4 [Mass/Vol]4.55 ng/dLHigh 0.71-1.85The [facility] HospitalComment on above:Performed By: #### 71981 #### [facility] [address] [place] [address], USAMAGNESIUM BLOODon 57-54-4037Bjmjelzsk [Mass/Vol]2.3 mg/dL Normal1.9-2.7The [facility] HospitalComment on above:Order Comment: No: Do not add to previous drawPerformed By: #### 63875, 85437, 47984, 03892, 36749 #### [facility] [address] [place] [address], USAPHOSPHORUS BLOODon 41-71-2411Kfuqovsry [Mass/Vol]5.4 mg/dL High2.5-5.0The [facility] HospitalComment on above:Order Comment: No: Do not add to previous drawPerformed By: #### 87101, 41001, 77701, 27321, 26654 #### [facility] [address] [facility] [place] [address], [facility]OSPITALPOC GLUCOSE LABon 84-00-9418Ouaqlcd [Mass/Vol]161 mg/dLHigh 70-100The [facility] HospitalComment on above:Performed By: #### 80245 #### [facility] [address] [address], USAGlucose [Mass/Vol]108 mg/iLQxgv14-473Oqq [facility] HospitalComment on above:Performed By: #### 73480 #### [facility] [address] [facility] [place] [address], [facility]ITALP[facility] SARS COV2 ANTIGEN NEGATIVEon 42-80-2715HNX SARS COV2 ANTIGEN NEGNegativeNormalNEGATIVEThe [facility] HospitalComment on above:Result Comment: Negative results [...] antigen from SARS-CoV-2 in direct nasopharyngeal swab (DENTAL HYGIENE INSTRUCTOR) specimens from individuals who are suspected of [...] Compliance, or Certificate of Accreditation.Performed By: #### 07814 #### [facility] [address] [facility] [place] [address], TIIETZ2yp 75-08-1000PPZ 3RD GENERATION<0.01Critically low 0.34-5.60The [facility] HospitalComment on above:Performed By: #### 40885, 23924, 17610, 27476, 08659 #### [facility] [address] [facility] [place] [address], USABASIC METABOLIC PANELon 23-68-9609Rbccnoe [Mass/Vol]9.8 mg/dLNormal8.6-10.3The [facility] HospitalComment on above:Order Comment: No: Do not add to previous drawPerformed By: #### 14158 #### [facility] [address] [facility] [place] [address], USAChloride [Moles/Vol]103 mmol/QRztzsm86-174Rme [facility] HospitalComment on above:Order Comment: No: Do not add to previous drawPerformed By: #### 98182 #### [facility] [address] [facility] [place] [address], USACO2 [Moles/Vol]29 mmol/ZRlfkfa33-55Rmz [facility] HospitalComment on above:Order Comment: No: Do not add to previous draw Performed By: #### 71718 #### [facility] [address] [place] [address], USACreatinine [Mass/Vol]2.60 mg/dLHigh0.70-1.30The [facility] HospitalComment on above:Order Comment: No: Do not add to previous drawPerformed By: #### 22112 #### [facility] [address] [place] [address], USAeGFR- Cmgsnlnm44 ml/min/1.73sq mAbnormal>60The [facility] HospitalComment on above:Order Comment: No: Do not add to previous drawResult Comment: Calculation may not be valid for patients over 70 yearsPerformed By: #### 50038 #### [facility] [address] [place] [address], USAeGFR- non- Pvgmsonm81 ml/min/1.73sq mAbnormal>60The [facility] HospitalComment on above:Order Comment: No: Do not add to previous drawResult Comment: Calculation may not be valid for patients over 70 yearsPerformed By: #### 74223 #### [facility] [address] [place] [address], USAGlucose [Mass/Vol]109 mg/tQCdnw97-621Sno [facility] HospitalComment on above:Order Comment: No: Do not add to previous drawPerformed By: #### 76436 #### [facility] [address] [place] [address], USAPotassium [Moles/Vol]4.0 mmol/LNormal3.5-5.1The [facility] HospitalComment on above:Order Comment: No: Do not add to previous drawPerformed By: #### 99711 #### [facility] [address] [place] [address], USASodium [Moles/Vol]141 mmol/BVxmzno950-437Sqr [facility] HospitalComment on above:Order Comment: No: Do not add to previous drawPerformed By: #### 48325 #### [facility] [address] [place] [address], USAUrea nitrogen [Mass/Vol]55 mg/dLHigh7-25The [facility] HospitalComment on above:Order Comment: No: Do not add to previous drawPerformed By: #### 36404 #### [facility] [address] [place] [address], USACBC W/DIFFon 82-76-7645PWR IMM GRANS0.0 10*3/uLNormal 0.0-0.2The [facility] HospitalComment on above:Performed By: #### 45545 #### [facility] [address] [facility] [place] [address], USAABS NEUTROPHILS4.1 10*3/uLNormal1.6-7.6The [facility] HospitalComment on above:Performed By: #### 86576 #### [facility] [address] [facility] [place] [address], USABasophils (Bld) [#/Vol]0.0 10*3/uLNormal0.0-0.2The [facility] HospitalComment on above:Performed By: #### 26123 #### [facility] [address] [facility] [place] [address], USABasophils/100 WBC (Bld)0.3 %Normal0.0-1.0The [facility] HospitalComment on above:Performed By: #### 51373 #### [facility] [address] [facility] [place] [address], USAEosinophils (Bld) [#/Vol]0.3 10*3/uLNormal0.0-0.5The [facility] HospitalComment on above:Performed By: #### 47359 #### [facility] [address] [facility] [place] [address], USAEosinophils/100 WBC (Bld)5.3 %Normal0.0-6.0The [facility] HospitalComment on above:Performed By: #### 86931 #### [facility] [address] [place] [address], USAErythrocyte distribution width (RBC) [Ratio]13.7 %Normal 11.5-15.0The [facility] HospitalComment on above:Performed By: #### 04270 #### [facility] [address] [facility] [place] [address], USAHematocrit (Bld) [Volume fraction]30.2 %Low39.0-50.0The [facility] HospitalComment on above:Performed By: #### 57871 #### [facility] [address] [facility] [place] [address], USAHemoglobin (Bld) [Mass/Vol]9.8 g/dLLow13.0-17.0The [facility] HospitalComment on above:Performed By: #### 28112 #### [facility] [address] [facility] [place] [address], USAIMMATURE GRANS0.3 %Normal0.0-1.0The [facility] HospitalComment on above:Performed By: #### 28348 #### [facility] [address] [facility] [place] [address], USALymphocytes (Bld) [#/Vol]1.1 10*3/uLLow1.2-4.0The [facility] HospitalComment on above:Performed By: #### 27225 #### [facility] [address] [facility] [place] [address], USALymphocytes/100 WBC (Bld)17.9 %Low20.0-45.0The [facility] HospitalComment on above:Performed By: #### 61465 #### [facility] [address] [facility]. [place] [id number], [facility] [Entitic mass]29.3 tyIskkkf78.0-33.0The [facility] Memorial HospitalComment on above:Performed By: #### [id number] #### [facility] [address] [facility] [place] [address], M[facility] VALLEY HOSPITALMCHC (RBC) [Mass/Vol]32.5 g/sYPjgaeb81.0-35.0The [facility] HospitalComment on above:Performed By: #### [id number] #### [facility] [address] [facility] [place] [address], M[facility] HOSPITALMCV (RBC) [Entitic vol]90.4 sXXrnmwq58.0-98.0The [facility] HospitalComment on above:Performed By: #### [id number] #### [facility] [address] [facility] [place] [place] [address], M[facility]LEY HOSPITALMonocytes (Bld) [#/Vol]0.7 10*3/uLNormal0.1-1.0The [facility] HospitalComment on above:Performed By: #### [id number] #### [facility] [address] [facility] [place] [place] [address], RBQGDBTJ38.6 %Normal5.0-12.0The [facility] HospitalComment on above:Performed By: #### [id number] #### [facility] [address] [facility] [place] [place] [address], M[facility] VALLEY HOSPITALNeutrophils/100 WBC (Bld)64.6 %Ostgkb82.0-72.0The [facility] HospitalComment on above:Performed By: #### [id number] #### [facility] [address] [facility] [place] [place] [address], USANucleated RBC/100 WBC (Bld) [Ratio]0 %Normal0-0The [facility] HospitalComment on above:Performed By: #### [id number] #### [facility] [address] [place] [address], USAPLAT CIN892 10*3/fQQxkxzs181-568Yan [facility] HospitalComment on above:Performed By: #### [id number] #### [facility] [address] [place] [address], USARBC (Bld) [#/Vol]3.34 10*6/uLLow4.20-5.70The [facility] HospitalComment on above:Performed By: #### [id number] #### [facility] [address] [place] [address], USAWBC (Bld) [#/Vol]6.38 10*3/uLNormal4.00-10.60The [facility] HospitalComment on above:Performed By: #### [id number] #### [facility] [address] [place] [address], USAMAGNESIUM BLOODon 59-52-1730Rfhvrzuew [Mass/Vol]2.3 mg/dL Normal1.9-2.7The [facility] HospitalComment on above:Order Comment: No: Do not add to previous drawPerformed By: #### [id number] #### [facility] [address] [place] [address], USATROPONIN-Ion 39-58-8195Hlqthqpk I.cardiac [Mass/Vol]0.04 ng/mLNormal0.00-0.04The [facility] HospitalComment on above: Order Comment: No: Do not add to previous drawResult Comment: REFERENCE RANGES: 0.00 - 0.04 ng/ml NORMAL 0.05 - 0.50 ng/ml INDETERMINATE > 0.50 ng/ml CONSISTENT WITH AN M.I.Performed By: #### [id number] #### [facility] [address] [place] [address], USABNPon 81-61-9702Ckdzdsoahnc peptide B (Bld) [Mass/Vol] 7410.0 pg/mLCritically high<=1,800.0The [facility] CenterComment on above: Performed By: #### FT4 #### [facility] [address] [place] [address] [address] Benito SchwartzPROF CHEM 8 (BAS METB)on 84-48-3908Nmukj gap [Moles/Vol]14.5 mmol/LNormalThe [facility] CenterComment on above:Performed By: #### FT4 #### [facility] [address] [place] [address] [address] Benito SchwartzCalcium [Mass/Vol]9.6 mg/dLNormal8.5-10.1The [facility] Comment on above:Performed By: #### FT4 #### [facility] [address] [place] [address] Dr. Benito SchwartzChloride [Moles/Vol]105 mmol/ITgrtng20-205Zjp [facility] Comment on above:Performed By: #### FT4 #### [facility] [address] [place] [address] Dr. Benito SchwartzCO2 [Moles/Vol]27.6 mmol/DBpvcdn02.0-32.0The [facility] Comment on above:Performed By: #### FT4 #### [facility] [address] [place] [address] Dr. Benito SchwartzCreatinine [Mass/Vol]2.48 mg/dLCritically high0.70-1.30The [facility] CenterComment on above:Performed By: #### FT4 #### [facility] [address] [place] [address] Dr. Benito WanGFR-AF UIRHPFAZ10 mL/min/1.33i5Hlfdrmzhwg low>=60The [facility] CenterComment on above:Performed By: #### FT4 #### [facility] [address] [place] [address] Dr. Benito WanGFR-NON AF KZFJXQAU26 mL/min/1.40e0Anvkvizwsn low>=60The [facility] CenterComment on above:Performed By: #### FT4 #### [facility] [address] [place] [address] [address] Benito SchwartzGlucose [Mass/Vol]116 mg/dLCritically gthk01-024Wlf [facility] CenterComment on above:Performed By: #### FT4 #### [facility] [address] [place] [address] Dr. Benito SchwartzPotassium [Moles/Vol]4.1 mmol/LNormal3.5-5.1The [facility] Comment on above:Performed By: #### FT4 #### [facility] [address] [place] [address] Dr. Benito SchwartzSodium [Moles/Vol]143 mmol/LZtujgp110-364Deh Comment on above:Performed By: #### FT4 #### [facility] [address] [place] [address] Dr. Benito SchwartzUrea nitrogen [Mass/Vol]56.0 mg/dLCritically high7.0-18.0The [facility] CenterComment on above:Performed By: #### FT4 #### [facility] [address] [place] [address] Dr. Benito SchwartzUrea nitrogen/Creatinine [Mass ratio]22.6 mg/mgNormalThTrumbull Memorial HospitalComment on above:Performed By: #### FT4 #### [facility] [address] [place] [address] Dr. Benito Love AUTO DIFFon 76-65-6016FYGL #0.0 103/ulNormal0.0-0.1The [facility] CenterComment on above:Performed By: #### VITAD #### [facility] [address] [place] [address] Dr. Benito SchwartzBasophils/100 WBC (Bld)0.3 %Normal0.2-2.0The [facility] Comment on above:Performed By: #### VITAD #### [facility] [address] [place] [address] Dr. Oliver ChangEO #0.1 103/ulNormal0.0-0.7The [facility] CenterComment on above: Performed By: #### VITAD #### [facility] [address] [place] [address] Dr. Benito Wanosinophils/100 WBC (Bld)2.4 %Normal0.9-7.0The [facility] Comment on above:Performed By: #### VITAD #### [facility] [address] [place] [address] Dr. Benito Wanrythrocyte distribution width (RBC) [Ratio]13.4 %Anllug79.0-15.0 Comment on above:Performed By: #### VITAD #### [facility] [address] [place] [address] Dr. Benito SchwartzHematocrit (Bld) [Volume fraction]27.7 %Critically low42.0-54.0 Comment on above:Performed By: #### VITAD #### [facility] [address] [place] [address] Dr. Benito SchwartzHemoglobin (Bld) [Mass/Vol]8.8 g/dLCritically low14.0-18.0The [facility] CenterComment on above:Performed By: #### VITAD #### [facility] [address] [place] [address] Dr. Benito Carias #0.02 10e3/ulNormal0.00-0.03The [facility] CenterComment on above:Performed By: #### VITAD #### [facility] [address] [place] [address] Dr. Benito Carias %0.3 %Normal0.0-0.5The [facility] CenterComment on above: Performed By: #### VITAD #### [facility] [address] [place] [address] Dr. Benito Negrete #1.1 103/ulCritically low1.2-3.8The [facility] Comment on above:Performed By: #### VITAD #### [facility] [address] [place] [address] Dr. Benito Lozanomphocytes/100 WBC (Bld)17.9 %Critically low20.5-60.0The [facility] CenterComment on above:Performed By: #### VITAD #### [facility] [address] [place] [address] Dr. Benito Keslser DIFF REQNONormalThe [facility] CenterComment on above: Performed By: #### VITAD #### [facility] [address] [place] [address] Dr. Benito Lawson (RBC) [Entitic mass]29.0 ozOdyyzp65.9-34.0The [facility]ili HospitalComment on above:Performed By: #### VITAD #### [facility] [address] [place] [address] Dr. Benito Lawson (RBC) [Mass/Vol]31.8 g/vJAwdxfj84.9-35.2The [facility] CenterComment on above:Performed By: #### VITAD #### [facility] [address] [place] [address] Dr. Benito Lawson (RBC) [Entitic vol]91.4 aEJrhbom77.0-94.0The [facility] CenterComment on above:Performed By: #### VITAD #### [facility] [address] [place] [address] Dr. Benito Colin #0.9 103/ulCritically high0.3-0.8The [facility] Comment on above:Performed By: #### VITAD #### [facility] [address] [place] [address] Dr. Benito Francoocytes/100 WBC (Bld)15.3 %Critically high1.7-12.0The [facility] CenterComment on above:Performed By: #### VITAD #### [facility] [address] [place] [address] Dr. Benito Herrera #3.7 103/ulNormal1.4-6.5The [facility] CenterComment on above:Performed By: #### VITAD #### [facility] [address] [place] [address] Dr. Yilan ChangNeutrophils/100 WBC (Bld)63.8 %Yamspy32.0-75.0The [facility] CenterComment on above:Performed By: #### VITAD #### [facility] [address] [place] [address] Dr. Benito SchwartzPlatelet mean volume (Bld) [Entitic vol]9.8 fLNormal9.5-13.5The [facility] CenterComment on above:Performed By: #### VITAD #### [facility] [address] [place] [address] Dr. Benito SchwartzPLT212 103/hfRiwbjp832-218Xhb [facility] CenterComment on above: Performed By: #### VITAD #### [facility] [address] [place] [address] Dr. Benito SchwartzRBC3.03 106/ulCritically low4.70-6.10The [facility] CenterComment on above:Performed By: #### VITAD #### [facility] [address] [place] [address] Dr. Benito SchwartzWBC5.9 103/ulNormal4.0-11.0The [facility] CenterComment on above: Performed By: #### VITAD #### [facility] [address] [place] [address] Dr. Benito PimentelCARJANETH M/2D COMPLETEon 55-78-4216XAYYZLIPXS M/2D COMPLETE Patient: DELANO OLIVER Exam Date: 03/07/2022 : 1940 Gender:M Ordering : DR RUPINDER GRIGSBY . Admission #: [id number] Family : DR YAS LINDA D.O. Order #: [id number] CLICK HERE TO VIEW EXAM ECHOCARDIOGRAM REPORT [...] Area(A4C): 23.30 cm2 Left Atrium Systolic Volume(A2C): 30720 mm3 Left Atrium Systolic Volume(A4C): 25814 mm3 Mitral Valve MV E to A [...] by: Sriram Rick M.D. on 03/08/2022 at 11:16[facility] HospitalOCC BLD IMMUNO SCREENon 87-10-8837KDCOKY BLOODNegativeNormalNEGATIVEThe [facility] CenterComment on above:Performed By: #### VITAD #### [facility] [address] [place] [address] Dr. Benito SchwartzPOINT OF CARE GLUCOSEon 01-81-5293Dmbucjp [Mass/Vol]124 mg/dL Critically edcl22-399Cpq [facility] CenterComment on above:Performed By: #### B12FOL, FETIBC #### [facility] [address] [place] [address] Dr. Benito SchwartzPROShelly CHEM 8 (BAS METB)on 55-68-6243Knrim gap [Moles/Vol]13.1 mmol/LNormalThe [facility] CenterComment on above:Performed By: #### B12FOL, FETIBC #### [facility] [address] [address] [address] Benito SchwartzCalcium [Mass/Vol]9.2 mg/dLNormal8.5-10.1 Comment on above:Performed By: #### B12FOL, FETIBC #### [facility] [address] [place] [address] Dr. Benito SchwartzChloride [Moles/Vol]105 mmol/GTomtxu61-083Fov Comment on above:Performed By: #### B12FOL, FETIBC #### [facility] [address] [place] [address] Dr. Benito SchwartzCO2 [Moles/Vol]28.6 mmol/LNjkbar02.0-32.0The [facility] Comment on above:Performed By: #### B12FOL, FETIBC #### [facility] [address] [address] [address] Benito SchwartzCreatinine [Mass/Vol]2.22 mg/dLCritically high0.70-1.30The [facility] CenterComment on above:Performed By: #### B12FOL, FETIBC #### [facility] [address] [address] [address] Oliver ChangEGFR-AF DXILXSPY75 mL/min/1.04o3Nbgafllgtq low>=60The [facility] CenterComment on above:Performed By: #### B12FOL, FETIBC #### [facility] [address] [place] [address] Dr. Benito WanGFR-NON AF APTCVCZJ77 mL/min/1.06c3Mxrepslygp low>=60The [facility] CenterComment on above:Performed By: #### B12FOL, FETIBC #### [facility] [address] [address] [address] Benito SchwartzGlucose [Mass/Vol]110 mg/dLCritically uljx39-916Nvd [facility] CenterComment on above:Performed By: #### B12FOL, FETIBC #### [facility] [address] [address] [address] Benito SchwartzPotassium [Moles/Vol]3.7 mmol/LNormal3.5-5.1The [facility] Comment on above:Performed By: #### B12FOL, FETIBC #### [facility] [address] [address] [address] Benito SchwartzSodium [Moles/Vol]143 mmol/HTpzhtk640-150Ruz [facility] Comment on above:Performed By: #### B12FOL, FETIBC #### [facility] [address] [address] [address] Benito SchwartzUrea nitrogen [Mass/Vol]66.0 mg/dLCritically high7.0-18.0The [facility] CenterComment on above:Performed By: #### B12FOL, FETIBC #### [facility] [address] [place] [address] Dr. Benito Andrade nitrogen/Creatinine [Mass ratio]29.7 mg/mgNormalThe [facility] CenterComment on above:Performed By: #### B12FOL, FETIBC #### [facility] [address] [place] [address] Dr. Benito Love AUTO DIFFon 55-99-9282RFFI #0.0 103/ulNormal0.0-0.1The [facility] CenterComment on above:Performed By: #### B12FOL, FETIBC #### [facility] [address] [place] [address] Dr. Benito SchwartzBasophils/100 WBC (Bld)0.2 %Normal0.2-2.0The [facility] Comment on above:Performed By: #### B12FOL, FETIBC #### [facility] [address] [place] [address] Dr. Benito Deluna #0.1 103/ulNormal0.0-0.7The [facility] CenterComment on above: Performed By: #### B12FOL, FETIBC #### [facility] [address] [place] [address] Dr. Benito Wanosinophils/100 WBC (Bld)2.4 %Normal0.9-7.0The [facility] Comment on above:Performed By: #### B12FOL, FETIBC #### [facility] [address] [place] [address] Dr. Benito Wanrythrocyte distribution width (RBC) [Ratio]13.8 %Ceirvp19.0-15.0 The [facility] CenterComment on above:Performed By: #### B12FOL, FETIBC #### [facility] [address] [place] [address] Dr. Benito SchwartzHematocrit (Bld) [Volume fraction]27.7 %Critically low42.0-54.0 The [facility] CenterComment on above:Performed By: #### B12FOL, FETIBC #### [facility] [address] [place] [address] Dr. Benito SchwartzHemoglobin (Bld) [Mass/Vol]8.7 g/dLCritically low14.0-18.0The [facility] CenterComment on above:Performed By: #### B12FOL, FETIBC #### [facility] [address] [place] [address] Dr. Benito Carias #0.02 10e3/ulNormal0.00-0.03The [facility] CenterComment on above:Performed By: #### B12FOL, FETIBC #### [facility] [address] [place] [address] Dr. Benito Carias %0.3 %Normal0.0-0.5The [facility] CenterComment on above: Performed By: #### B12FOL, FETIBC #### [facility] [address] [place] [address] Dr. Benito Negrete #1.0 103/ulCritically low1.2-3.8The [facility] Comment on above:Performed By: #### B12FOL, FETIBC #### [facility] [address] [place] [address] Dr. Benito Srinivasanhocytes/100 WBC (Bld)16.7 %Critically low20.5-60.0The [facility] CenterComment on above:Performed By: #### B12FOL, FETIBC #### [facility] [address] [place] [address] Dr. Benito ZhaoUAL DIFF REQNONormalThe [facility] CenterComment on above: Performed By: #### B12FOL, FETIBC #### [facility] [address] [place] [address] Dr. Benito uQarles (RBC) [Entitic mass]29.1 xvZrhwho63.9-34.0The [facility] CenterComment on above:Performed By: #### B12FOL, FETIBC #### [facility] [address] [place] [address] Dr. Benito Lawson (RBC) [Mass/Vol]31.4 g/xXWbufby27.9-35.2The [facility] HospitalComment on above:Performed By: #### B12FOL, FETIBC #### [facility] [address] [place] [address] Dr. Benito Lawson (RBC) [Entitic vol]92.6 kTOotfwj24.0-94.0The [facility] HospitalComment on above:Performed By: #### B12FOL, FETIBC #### [facility] [address] [place] [address] Dr. Benito Colin #0.9 103/ulCritically high0.3-0.8The [facility] Comment on above:Performed By: #### B12FOL, FETIBC #### [facility] [address] [place] [address] Dr. Benito Francoocytes/100 WBC (Bld)15.3 %Critically high1.7-12.0The [facility] CenterComment on above:Performed By: #### B12FOL, FETIBC #### [facility] [address] [place] [address] Dr. Benito Herrera #3.7 103/ulNormal1.4-6.5The [facility] CenterComment on above:Performed By: #### B12FOL, FETIBC #### [facility] [address] [place] [address] Dr. Benito Herediautrophils/100 WBC (Bld)65.1 %Yimbps39.0-75.0The [facility] CenterComment on above:Performed By: #### B12FOL, FETIBC #### [facility] [address] [place] [address] Dr. Benito Lang mean volume (Bld) [Entitic vol]9.7 fLNormal9.5-13.5The [facility] CenterComment on above:Performed By: #### B12FOL, FETIBC #### [facility] [address] [address] [address] Benito SchwartzPLT205 103/gzOukell679-504Byr [facility] CenterComment on above: Performed By: #### B12FOL, FETIBC #### [facility] [address] [address] [address] Benito SchwartzRBC2.99 106/ulCritically low4.70-6.10The [facility] CenterComment on above:Performed By: #### B12FOL, FETIBC #### [facility] [address] [place] [address] Dr. Benito SchwartzWBC5.7 103/ulNormal4.0-11.0The [facility] CenterComment on above: Performed By: #### B12FOL, FETIBC #### [facility] [address] [place] [address] Dr. Benito SchwartzCT HEAD WO CONon 30-78-1472NH HEAD WO CONEXAMINATION: CT HEAD WO CON, [...] Electronically authenticated by: ANTHONY TRACEY Date: 2022-03-06 12:33NoSt[facility] AND TIBCon 03-06-2022% OJHDYIVYFI73.7 %NormalThe [facility] Medical CenterComsparrow ionia hospital on above:Performed By: #### B12FOL, FETIBC #### [facility] [address] [place] [address] Dr. Benito Means [Mass/Vol]55.0 ug/dLCritically low65.0-175.0The [facility] CenterComment on above:Performed By: #### B12FOLoli FETIBC #### [facility] [address] [place] [address] Dr. Benito Garcia NLTLYH935.0 ug/dLCritically eya961.0-450.0The [facility] CenterComment on above:Performed By: #### B12FOYADIRA EnnisIBC #### [facility] [address] [place] [address] Dr. Benito SchwartzPOINT OF CARE GLUCOSEon 74-65-4035Fwsrhld [Mass/Vol]145 mg/dL Critically zvpt37-949Zow [facility] CenterComment on above:Performed By: #### VITAD #### [facility] [address] [place] [address] Dr. Benito SchwartzPROF CHEM 8 (BAS METB)on 30-06-7657Aklaw gap [Moles/Vol]14.6 mmol/LNormalComment on above:Performed By: #### VITAD #### [facility] [address] [place] [address] Dr. Benito SchwartzCalcium [Mass/Vol]9.0 mg/dLNormal8.5-10.1 Comment on above:Performed By: #### VITAD #### [facility] [address] [place] [address] Dr. Benito SchwartzChloride [Moles/Vol]106 mmol/CUxluld23-782Qow Comment on above:Performed By: #### VITAD #### [facility] [address] [place] [address] Dr. Benito SchwartzCO2 [Moles/Vol]26.3 mmol/FZlwout12.0-32.0The [facility] Comment on above:Performed By: #### VITAD #### [facility] [address] [place] [address] Dr. Benito SchwartzCreatinine [Mass/Vol]2.40 mg/dLCritically high0.70-1.30The [facility] CenterComment on above:Performed By: #### VITAD #### [facility] [address] [place] [address] Dr. Benito WanGFR-AF SAWOXPVI44 mL/min/1.93u6Hdhvnfrrwo low>=60The [facility] CenterComment on above:Performed By: #### VITAD #### [facility] [address] [address] [address] Benito WanGFR-NON AF IPHYJPPQ45 mL/min/1.21l2Wdfhwcviix low>=60The [facility] CenterComment on above:Performed By: #### VITAD #### [facility] [address] [place] [address] Dr. Benito SchwartzGlucose [Mass/Vol]108 mg/dLCritically ogzo98-052Klq [facility] CenterComment on above:Performed By: #### VITAD #### [facility] [address] [place] [address] Dr. Benito SchwartzPotassium [Moles/Vol]3.9 mmol/LNormal3.5-5.1 Comment on above:Performed By: #### VITAD #### [facility] [address] [place] [address] Dr. Benito Villalobosdium [Moles/Vol]143 mmol/QCdguus381-596Jci Comment on above:Performed By: #### VITAD #### [facility] [address] [place] [address] Dr. Benito SchwartzUrea nitrogen [Mass/Vol]72.0 mg/dLCritically high7.0-18.0The [facility] CenterComment on above:Performed By: #### VITAD #### [facility] [address] [place] [address] Dr. Benito Andrade nitrogen/Creatinine [Mass ratio]30.0 mg/mgNormalThe [facility] CenterComment on above:Performed By: #### VITAD #### [facility] [address] [place] [address] Dr. Benito Kimble B12 AND FOLATEon 34-60-2476Jszfdiuaf (Vitamin B12) [Mass/Vol] 432.0 pg/eTUcwsam381.0-986.0The [facility] CenterComment on above:Performed By: #### B12FOLoli FETIBC #### [facility] [address] [place] [address] Dr. Benito SchwartzFOLATE21.60 ng/mLNormal8.60-58.90The [facility] CenterComment on above:Performed By: #### B12FOLoli FETIBC #### [facility] [address] [place] [address] Dr. Benito Ray 65-13-3998Efselbizyia peptide B (Bld) [Mass/Vol]6910.0 pg/mLCritically high<=1,800.0The [facility] CenterComment on above:Result Comment: Test Repeated. Critical Value VerifiedPerformed By: #### B12FOLoli FETIBC #### [facility] [address] [place] [address] Dr. Benito Love AUTO DIFFon 62-81-1877WHLI #0.0 103/ulNormal0.0-0.1The [facility] CenterComment on above:Performed By: #### FT4, PSASC #### [facility] [address] [place] [address] Dr. Benito SchwartzBasophils/100 WBC (Bld)0.3 %Normal0.2-2.0The [facility] Comment on above:Performed By: #### FT4, PSASC #### [facility] [address] [place] [address] Dr. Benito Deluna #0.2 103/ulNormal0.0-0.7The [facility] CenterComment on above: Performed By: #### FT4, PSASC #### [facility] [address] [place] [address] Dr. Benito Wanosinophils/100 WBC (Bld)2.7 %Normal0.9-7.0The [facility] Comment on above:Performed By: #### FT4, PSASC #### [facility] [address] [place] [address] Dr. Benito Wanrythrocyte distribution width (RBC) [Ratio]13.7 %Slnwrd79.0-15.0 The [facility] CenterComment on above:Performed By: #### FT4, PSASC #### [facility] [address] [place] [address] Dr. Benito SchwartzHematocrit (Bld) [Volume fraction]27.9 %Critically low42.0-54.0 The [facility] CenterComment on above:Performed By: #### FT4, PSASC #### [facility] [address] [place] [address] Dr. Benito SchwartzHemoglobin (Bld) [Mass/Vol]8.9 g/dLCritically low14.0-18.0The [facility] CenterComment on above:Performed By: #### FT4, PSASC #### [facility] [address] [place] [address] Dr. Benito Carias #0.01 10e3/ulNormal0.00-0.03The [facility]Com[facility] on above:Performed By: #### FT4, PSASC #### [facility] [address] [place] [address] Dr. Benito Carias %0.2 %Normal0.0-0.5The [facility] on above: Performed By: #### FT4, PSASC #### [facility] [address] [place] [address] Dr. Benito SrinivasanH #1.3 103/ulNormal1.2-3.8The [facility] on above:Performed By: #### FT4, PSASC #### [facility] [address] [place] [address] Dr. Benito Srinivasanhocytes/100 WBC (Bld)21.5 %Fxqxwf54.5-60.0The [facility] CenterComment on above:Performed By: #### FT4, PSASC #### [facility] [address] [place] [address] Dr. Benito Kessler DIFF REQNONormalThe [facility] CenterComment on above: Performed By: #### FT4, PSASC #### [facility] [address] [place] [address] Dr. Benito Lawson (RBC) [Entitic mass]29.5 neZjtuky72.9-34.0The [facility] CenterComment on above:Performed By: #### FT4, PSASC #### [facility] [address] [place] [address] Dr. Benito Lawson (RBC) [Mass/Vol]31.9 g/qMXobxcg00.9-35.2The [facility] CenterComment on above:Performed By: #### FT4, PSASC #### [facility] [address] [place] [address] Dr. Benito Lawson (RBC) [Entitic vol]92.4 vZCggwqh89.0-94.0The [facility] CenterComment on above:Performed By: #### FT4, PSASC #### [facility] [address] [place] [address] Dr. Benito Colin #1.0 103/ulCritically high0.3-0.8The [facility] Comment on above:Performed By: #### FT4, PSASC #### [facility] [address] [place] [address] Dr. Benito Francoocytes/100 WBC (Bld)16.3 %Critically high1.7-12.0The [facility] CenterComment on above:Performed By: #### FT4, PSASC #### [facility] [address] [place] [address] Dr. Benito Herrera #3.5 103/ulNormal1.4-6.5The [facility] CenterComment on above:Performed By: #### FT4, PSASC #### [facility] [address] [place] [address] Dr. Benito Herediautrophils/100 WBC (Bld)59.0 %Koxgzw39.0-75.0The [facility] CenterComment on above:Performed By: #### FT4, PSASC #### [facility] [address] [place] [address] Dr. Benito Lang mean volume (Bld) [Entitic vol]9.5 fLNormal9.5-13.5The [facility] CenterComment on above:Performed By: #### FT4, PSASC #### [facility] [address] [place] [address] Dr. Benito SchwartzPLT213 103/clIlofoj511-181Vuf [facility] CenterCom[facility] on above: Performed By: #### FT4, PSASC #### [facility] [address] [place] [address] Dr. Benito SchwartzRBC3.02 106/ulCritically low4.70-6.10The [facility] CenterComment on above:Performed By: #### FT4, PSASC #### [facility] [address] [place] [address] Dr. Benito SchwartzWBC5.9 103/ulNormal4.0-11.0The [facility] CenterComment on above: Performed By: #### FT4, PSASC #### [facility] [address] [place] [address] Dr. Benito Cotter BLOODon 74-57-5032Qquylvfrbwp examination of blood, cultureCulture Observations: NO GROWTH AT 5 DAYS.NormalThe [facility] CenterComment on above:Performed By: #### VITAD #### [facility] [address] [place] [address] Dr. Benito SchwartzCovid-19 PCR (CVDTBH)on 22-96-2404EIZU-CoV-2 (COVID-19) RNA ZITA+probe Ql (Unsp spec)Not detectedNormalNOT DETECTEDThe [facility] Comment on above:Result Comment: This test is not yet approved or cleared by the [place] FDA. When there are no FDA-approved or cleared tests available, and other criteria are met, FDA can make tests available under an emergency access mechanism called an Emergency Use Authorization (EUA). The EUA for this test is supported by the [place] of Health and Human Service's (HHS's) declaration [...] consistent with SARS-CoV-2.Performed By: #### CBC #### [facility] [address] [place] [address] Dr. Benito Linton T4on 37-31-7016Bswe T4 [Mass/Vol]ng/dLCritically high 0.76-1.46The [facility] CenterComment on above:Performed By: #### CBC #### [facility] [address] [place] [address] Dr. Benito SchwartzLACTATE/LACTIC ACIDon 14-63-3305Ahpbgjx [Moles/Vol]1.2 mmol/L Normal0.4-1.9The [facility] CenterComment on above:Performed By: #### FT4 #### [facility] [address] [place] [address] Dr. Benito SchwartzPROF 14(COMP METB)on 83-64-4499Qcmdyqp [Mass/Vol]2.9 g/dL Critically low3.4-5.0The [facility] CenterComment on above:Performed By: #### FT4, PSASC #### [facility] [address] [place] [address] Dr. Benito SchwartzAlbumin/Globulin [Mass ratio]0.8 {ratio}NormalThe [facility] on above:Performed By: #### FT4, PSASC #### [facility] [address] [place] [address] Dr. Benito SchwartzALP [Catalytic activity/Vol]107 U/OPekvqk72-528Goh [facility] Centerment on above:Performed By: #### FT4, PSASC #### [facility] [address] [address] [address] Benito MasseyT [Catalytic activity/Vol]25 U/LHrfybh37-15Qcz [facility] CenterComment on above:Performed By: #### FT4, PSASC #### [facility] [address] [address] [address] Benito SchwartzAnion gap [Moles/Vol]14.2 mmol/LNormalThe [facility] Comment on above:Performed By: #### FT4, PSASC #### [facility] [address] [address] [address] Benito SchwartzAST [Catalytic activity/Vol]17 U/PPkhuhr30-72Eeu [facility] CenterComment on above:Performed By: #### FT4, PSASC #### [facility] [address] [place] [address] Dr. Benito SchwartzBilirubin [Mass/Vol]0.5 mg/dLNormal0.2-1.0The [facility] Comment on above:Performed By: #### FT4, PSASC #### [facility] [address] [address] [address] Benito SchwartzCalcium [Mass/Vol]9.1 mg/dLNormal8.5-10.1 Comment on above:Performed By: #### FT4, PSASC #### [facility] [address] [address] [address] Benito SchwartzChloride [Moles/Vol]104 mmol/TLhherb75-538Cfv [facility] Comment on above:Performed By: #### FT4, PSASC #### [facility] [address] [address] [address] Benito SchwartzCO2 [Moles/Vol]27.0 mmol/PKsezou97.0-32.0The [facility] Comment on above:Performed By: #### FT4, PSASC #### [facility] [address] [address] [address] Benito SchwartzCreatinine [Mass/Vol]2.97 mg/dLCritically high0.70-1.30Comment on above:Performed By: #### FT4, PSASC #### [facility] [address] [place] [address] Dr. Benito WanGFR-AF NBBXOGSM73 mL/min/1.70y1Xxuricdhgj low>=60The [facility] CenterComment on above:Performed By: #### FT4, PSASC #### [facility] [address] [place] [address] Dr. Benito WanGFR-NON AF YMKTDINH51 mL/min/1.83n7Amavdptred low>=60The [facility] CenterComment on above:Performed By: #### FT4, PSASC #### [facility] [address] [place] [address] Dr. Benito SchwartzGlobulin (S) [Mass/Vol]3.6 g/dLNormalThe [facility] CenterComment on above:Performed By: #### FT4, PSASC #### [facility] [address] [place] [address] Dr. Benito SchwartzGlucose [Mass/Vol]162 mg/dLCritically jwwg08-329Ckl [facility] CenterComment on above:Performed By: #### FT4, PSASC #### [facility] [address] [place] [address] Dr. Benito SchwartzPotassium [Moles/Vol]4.2 mmol/LNormal3.5-5.1 Comment on above:Performed By: #### FT4, PSASC #### [facility] [address] [place] [address] Dr. Benito SchwartzProtein [Mass/Vol]6.5 g/dLNormal6.4-8.2 Comment on above:Performed By: #### FT4, PSASC #### [facility] [address] [place] [address] Dr. Benito SchwartzSodium [Moles/Vol]141 mmol/ITelhnp610-586Hpr Comment on above:Performed By: #### FT4, PSASC #### [facility] [address] [address] [address] Benito Andrade nitrogen [Mass/Vol]74.0 mg/dLCritically high7.0-18.0The [facility] Centerment on above:Performed By: #### FT4, PSASC #### [facility] [address] [place] [address] Dr. Benito Andrade nitrogen/Creatinine [Mass ratio]24.9 mg/mgNoKettering Health – Soin Medical CenterComment on above:Performed By: #### FT4, PSASC #### [facility] [address] [place] [address] Dr. Benito Pablo, HIGH SENSITIVITYon 48-45-6616ABBYXY88.6 pg/mLNormal 4.0-76.1The [facility] on above:Result Comment: CUT-OFF POINTS HAVE BEEN ESTABLISHED BASED ON THE FOURTH UNIVERSAL DEFINITIONS OF MYOCARDIAL INFARCTION. THE UPPER REFERENCE LIMIT (URL) OF TROPONIN, DEFINED THE 99TH PERCENTILE OF cTnI DISTRIBUTION IN A REFERENCE POPULATION, HAS BEEN CONFIRMED THE DECISION THRESHOLD FOR HI DIAGNOSIS.Performed By: #### FT4, PSASC #### [facility] [address] [place] [address] Dr. Benito Kelley 18-02-5027UCD Qnm[IU]/LCritically low0.358-3.740The [facility] on above:Performed By: #### FT4 #### [facility] [address] [place] [address] Dr. Benito Friedman RANGESEE BELOWNoKettering Health – Soin Medical CenterComment on above: Result Comment: <0.34 UIU/ml HYPERTHYROID 0.34-5.60 UIU/ml EUTHYROID >5.60 UIU/ml HYPOTHYROIDPerformed By: #### FT4 #### [facility] [address] [place] [address] Dr. Benito Soto THYROIDon 28-74-9343IV THYROIDEXAMINATION: US THYROID HISTORY: Acute thyroiditis COMPARISON: [...] Electronically authenticated by: MALENA RIOS Date: 2022-03-04 13:[address] [place], [place] [address]Laboratory - Chemistry and Chemistry - challengeOrdered By: Enrrique Mckeon on 76-95-0435Dqloglqbnqm peptide B (Bld) [Mass/Vol]251.0 pg/mL [address] Panel InformationOrdered By: Enrrique Mckeon on 78-57-4297691.0 pg/mL[address] [place] <= 0.005 mIU/L QnOrdered By: Enrrique Mckeon on 33-94-4193EMP Qn m[IU]/LLow0.45-5.33[facility] QnSerum or plasma thyroid stimulating hormone (TSH) measurement by high sensitivity metLow 0.45-5.33[facility] CampusCoding Summaryon 77-36-2795Susjvf SummaryHTMLBase 64 TtyygkikDGj8zLc+PGhlYWQ+TB5CJIWlR21veDFcbT1HI8qEOV4UDSYEPLZXIV9CLS0xqGO1OMuyJ3Hf biAv [file] ZTs (more content not included)...[facility] HospitalProvider Orderson 33-72-7887Btxcgfgy [id number]#1.00OTGTIFF [facility] HospitalCreatinine Lvlon 50-39-4819zAYX Non AA29 mL/min/1.73m2 Invalid Interpretation [facility] RehabilitationComment on above:Performed By: #### [id number] #### [facility] (DEFAULT) [address] [place], [place] [address]eTSE AA35 mL/min/1.52q3Ucuduxc Interpretation CodeDiley Ridge Medical CenterComment on above:Result Comment: Chronic Kidney disease could be indicated at eGFRs of less than 60 ml/min/1.73m2. Kidney Failure is indicated at less than 15 ml/min/1.49d1Pluvosnbn By: #### [id number] #### [facility] (DEFAULT) [address] [place], [place] [address]Ojhounqyib [Mass/Vol]2.19 mg/dLHigh0.90-1.30[facility] CenterComment on above:Performed By: #### [id number] #### [facility] (DEFAULT) [address] [place] [address] Vital Signs Date TimeVital SignValuePerforming MpwnluvbeNnchamhm88-07-8932 10:01-0500Body lumeui176.3 cmAnthony Rusher DPM Work Phone: [facility] HospitalXzjaxhppay89-98-8614 10:01-0500Body mass index (BMI) [Ratio]27.2 kg/g0Amlqfzr Rusher DPM Work Phone: [address] [place] [address]Ntilmqnfzk65-03-2485 10:01-0500Body gfwexo94.45 kgAnthony Rusher DPM Work Phone: [facility] HospitalUbljkcxist13-61-6611 14:07-0500Body offosp889.34 cmBenjamin Ball DO Work Phone: [facility]11-06-2025 14:07-0500 Body mass index (BMI) [Ratio]28.1 kg/a7Tgfhpwxq Ball DO Work Phone: [facility]11-06-2025 14:07-0500 Body cocila53.62 kgBenjamin Ball DO Work Phone: [facility]11-06-2025 14:07-0500 Diastolic blood axmbbklw65 mm[Hg]Yas Ball DO Work Phone: [facility]11-06-2025 14:07-0500 Heart rate80 /minBenjamin Ball DO Work Phone: 1([phone] [place], [place] [address]011-06-2025 14:07-0500 Respiratory rate16 /minBenjamin Ball DO Work Phone: 1419)[address] [place], [place] 6752411-06-2025 14:07-0500 SaO2% (BldA) [Mass fraction]98 %Yas Ball DO Work Phone: 1419)[address] [place], [place] 6752411-06-2025 14:07-0500 Systolic blood htqycfqf263 mm[Hg]Yas Ball DO Work Phone: 1419)[address] [place], [place] 6752410-07-2025 16:17-0400 Body azylfb120.34 cmBenjamin Ball DO Work Phone: 1419)[address] [place], [place] 6752410-07-2025 16:17-0400 Body mass index (BMI) [Ratio]28.8 kg/q2Vtcpvdav Ball DO Work Phone: 1419)[address] [place], [place] 6752410-07-2025 16:17-0400 Body cvvdeq79.61 kgBenjamin Ball DO Work Phone: 1419)[address] [place], [place] 6752410-07-2025 16:17-0400 Diastolic blood uxxcwlqt85 mm[Hg]Yas Ball DO Work Phone: 1419)[address] [place], [place] 6752410-07-2025 16:17-0400 Heart rate83 /minBenjamin Ball DO Work Phone: 1419)[address] [place], [place] 6752410-07-2025 16:17-0400 Respiratory rate12 /minBenjamin Ball DO Work Phone: 1419)[address] [place], [place] 6752410-07-2025 16:17-0400 Systolic blood hvgvlkra056 mm[Hg]Yas Ball DO Work Phone: 1419)[address] [place], [place] 6752409-23-2025 09:32-0400 Body .34 cmBenjamin Ball DO Work Phone: 1419)[address] [place], [place] 6752409-23-2025 09:32-0400 Body mass index (BMI) [Ratio]27.9 kg/d3Pcejxuzx Ball DO Work Phone: 1(419)[address] [place], [place] 6752409-23-2025 09:32-0400 Body uupzrk42.83 kgBenjamin Ball DO Work Phone: 1(419)[address] [place], [place] 6752409-23-2025 09:32-0400 Diastolic blood sworsnof49 mm[Hg]Yas Ball DO Work Phone: 1(419)[address] [place], [place] 6752409-23-2025 09:32-0400 Heart rate79 /minBenjamin Ball DO Work Phone: 1(419)[address] [place], [place] 6752409-23-2025 09:32-0400 Respiratory rate12 /minBenjamin Ball DO Work Phone: 1(419)[address] [place], [place] 6752409-23-2025 09:32-0400 Systolic blood onjlqjos570 mm[Hg]Yas Ball DO Work Phone: 1(419)[address] [place], [place] 6752409-22-2025 10:25-0400 Body amdgdd165.34 cmBenjamin Ball DO Work Phone: 1(419)[address] [place], [place] 6752409-22-2025 10:25-0400 Body mass index (BMI) [Ratio]27 kg/b7Wnrbevmg Ball DO Work Phone: 1(419)[address] [place], [place] 6752409-22-2025 10:25-0400 Body zkhkie56.99 kgBenjamin Ball DO Work Phone: 1(419)[address] [place], [place] 6752409-22-2025 10:25-0400 Diastolic blood qgbbqamv08 mm[Hg]Yas Ball DO Work Phone: 1(419)[address] [place], [place] 6752409-22-2025 10:25-0400 Heart rate71 /minBenjamin Ball DO Work Phone: 1(419)[address] [place], [place] 6752409-22-2025 10:25-0400 SaO2% (BldA) [Mass fraction]95 %Yas Ball DO Work Phone: 1(419)[address] [place], [place] 6752409-22-2025 10:25-0400 Systolic blood efuzjbei883 mm[Hg]Yas Ball DO Work Phone: 1(825)082-[address] [place], [place] 4536008-22-2025 12:59-0400 Body hfvaot145.34 cmBenjamin Ball DO Work Phone: 1(374)[address] [place], [place] 6752408-22-2025 12:59-0400 Body mass index (BMI) [Ratio]27.6 kg/f6Wqrxofzf Ball DO Work Phone: 1(307)[address] [place], [place] 6752408-22-2025 12:59-0400 Body lkioxqxkodo14.8 [degF]Yas Ball DO Work Phone: 1(718)[address] [place], [place] 6752408-22-2025 12:59-0400 Body fmaqss42.81 kgBenjamin Ball DO Work Phone: 1(372)[address] [place], [place] 6752408-22-2025 12:59-0400 Diastolic blood hbwceqje47 mm[Hg]Yas Ball DO Work Phone: 1(603)[address] [place], [place] 6752408-22-2025 12:59-0400 Heart rate72 /minBenjamin Ball DO Work Phone: 1(739)[address] [place], [place] 6752408-22-2025 12:59-0400 Respiratory rate16 /minBenjamin Ball DO Work Phone: 1(004)[address] [place], [place] 6752408-22-2025 12:59-0400 SaO2% (BldA) [Mass fraction]97 %Yas Ball DO Work Phone: 1(528)[address] [place], [place] 6752408-22-2025 12:59-0400 Systolic blood mm[Hg]Yas Ball DO Work Phone: 1(313)[address] [place], [place] 6752408-11-2025 10:12-0400 Body btdylb309.3 cmAnthony Rusher DPM Work Phone: [facility] HospitalIqljirnbrz54-26-0552 10:12-0400Body mass index (BMI) [Ratio]27.2 kg/s4Ftjcrjr Rusher DPM Work Phone: [facility] HospitalNdypzveilb00-97-9433 10:12-0400Body uqyofs26.45 kgAnthony Rusher DPM Work Phone: [facility] HospitalCksodhopec48-41-7133 16:15-0400Body uhewmf327.34 cmBenjamin Ball DO Work Phone: 1(685)[address]07-03-2025 16:15-0400 Body mass index (BMI) [Ratio]27.1 kg/h2Tyxdaglo Ball DO Work Phone: 1(956)[address] [place], [place] 6752407-03-2025 16:15-0400 Body abbvllhuyal71.9 [degF]Yas Ball DO Work Phone: 1(039)[address] [place], [place] 6752407-03-2025 16:15-0400 Body .22 kgBenjamin Ball DO Work Phone: 1(308)[address] [place], [place] 6752407-03-2025 16:15-0400 Diastolic blood mm[Hg]Yas Ball DO Work Phone: 1(212)[address] [place], [place] 6752407-03-2025 16:15-0400 Heart rate99 /minBenjamin Ball DO Work Phone: 1(272)[address] [place], [place] 6752407-03-2025 16:15-0400 Respiratory rate18 /minBenjamin Ball DO Work Phone: 1(255)[address] [place], [place] 6752407-03-2025 16:15-0400 SaO2% (BldA) [Mass fraction]98 %Yas Ball DO Work Phone: 1(157)[address] [place], [place] 6752407-03-2025 16:15-0400 Systolic blood amvlyqex299 mm[Hg]Yas Ball DO Work Phone: 1(625)[address] [place], [place] 6752406-23-2025 09:00-0400 Body fypxpz683.34 cmBenjamin Ball DO Work Phone: 1(457)[address] [place], [place] 6752406-23-2025 09:00-0400 Body mass index (BMI) [Ratio]27.5 kg/k2Pmigdjsf Ball DO Work Phone: 1(540)[address] [place], [place] 6752406-23-2025 09:00-0400 Body uuwhhq69.41 kgBenjamin Ball DO Work Phone: 1(470)[address]06-23-2025 09:00-0400 Diastolic blood mm[Hg]Yas Ball DO Work Phone: 1419)[address] [place], [place] 6752406-23-2025 09:00-0400 Heart rate78 /minBenjamin Ball DO Work Phone: 1419)[address] [place], [place] 6752406-23-2025 09:00-0400 Respiratory rate12 /minBenjamin Ball DO Work Phone: 1419)[address] [place], [place] 6752406-23-2025 09:00-0400 Systolic blood ntzasexv587 mm[Hg]Yas Ball DO Work Phone: 1(593)[address] [place], [place] 6752406-10-2025 13:16-0400 Body xsdrvy022.34 cmBenjamin Ball DO Work Phone: 1(602)[address] [place], [place] 6752406-10-2025 13:16-0400 Body mass index (BMI) [Ratio]27.5 kg/s8Idgjkfvn Ball DO Work Phone: 1(657)[address] [place], [place] 6752406-10-2025 13:16-0400 Body mlqmqe07.41 kgBenjamin Ball DO Work Phone: 1(029)[address] [place], [place] 6752406-10-2025 13:16-0400 Diastolic blood irazthwg81 mm[Hg]Yas Ball DO Work Phone: 1(109)[address] [place], [place] 6752406-10-2025 13:16-0400 Heart rate76 /minBenjamin Ball DO Work Phone: 1(892)[address] [place], [place] 6752406-10-2025 13:16-0400 Respiratory rate12 /minBenjamin Ball DO Work Phone: 1(132)[address] [place], [place] 6752406-10-2025 13:16-0400 Systolic blood qaffelqe241 mm[Hg]Yas Ball DO Work Phone: 1(335)[address] [place], [place] 6752405-16-2025 12:56-0400 Body .34 cmBenjamin Ball DO Work Phone: 1(901)[address]05-16-2025 12:56-0400 Body mass index (BMI) [Ratio]27.4 kg/s8Jkzfddhv Ball DO Work Phone: 1(960)[facility] [place], [place] 4536005-16-2025 12:56-0400 Body .35 kgBenjamin Ball DO Work Phone: 1419)[address] [place], [place] 6752405-16-2025 12:56-0400 Diastolic blood mm[Hg]Yas Ball DO Work Phone: 1(243)[address] [place], [place] 6752405-16-2025 12:56-0400 Heart rate72 /minBenjamin Ball DO Work Phone: 1(380)[address] [place], [place] 6752405-16-2025 12:56-0400 Respiratory rate16 /minBenjamin Ball DO Work Phone: 1(575)[address] [place], [place] 6752405-16-2025 12:56-0400 SaO2% (BldA) [Mass fraction]99 %Yas Ball DO Work Phone: 1(273)[address] [place], [place] 6752405-16-2025 12:56-0400 Systolic blood sfkwmrhu393 mm[Hg]Yas Ball DO Work Phone: 1(859)[address] [place], [place] 6752405-09-2025 10:46-0400 Body njeafv740.3 cmAnthony Rusher DPM Work Phone: 1(731)[address] [place], [place] 5773805-09-2025 10:46-0400Body mass index (BMI) [Ratio]27.34 kg/m4Hukyoqc Rusher DPM Work Phone: 1(801)[address]05-09-2025 10:46-0400Body .91 kgAnthony Rusher DPM Work Phone: 1(517)[address] [place], [place] 5773804-15-2025 14:22-0400Body cukgaa526.34 cmBenjamin Ball DO Work Phone: 1(808)[address]04-15-2025 14:22-0400 Body mass index (BMI) [Ratio]27.3 kg/c2Zemdttbk Ball DO Work Phone: 1419)[facility] [place], [place] 4536004-15-2025 14:22-0400 Body qozxrg47.9 kgBenjamin Ball DO Work Phone: 1419)[facility] [place], [place] 4536004-15-2025 14:22-0400 Diastolic blood tydnquej19 mm[Hg]Yas Ball DO Work Phone: 1419)[address] [place], [place] 6752404-15-2025 14:22-0400 Heart rate87 /minBenjamin Ball DO Work Phone: 1419)[address] [place], [place] 6752404-15-2025 14:22-0400 Respiratory rate12 /minBenjamin Ball DO Work Phone: 1419)[address] [place], [place] 6752404-15-2025 14:22-0400 Systolic blood mm[Hg]Yas Ball DO Work Phone: 1419)[address] [place], [place] 6752404-07-2025 11:05-0400 Body fylgzr916.34 cmBenjamin Ball DO Work Phone: 1)[address] [place], [place] 6752404-07-2025 11:05-0400 Body mass index (BMI) [Ratio]27.8 kg/f0Ahhbudpb Ball DO Work Phone: 1(799)[address] [place], [place] 6752404-07-2025 11:05-0400 Body wujarmtmtek76.4 [degF]Yas Ball DO Work Phone: 1419)[address] [place], [place] 6752404-07-2025 11:05-0400 Body nopmmr57.37 kgBenjamin Ball DO Work Phone: 1419)[address] [place], [place] 6752404-07-2025 11:05-0400 Diastolic blood lhdeplaa45 mm[Hg]Yas Ball DO Work Phone: 1419)[address] [place], [place] 6752404-07-2025 11:05-0400 Heart rate81 /minBenjamin Ball DO Work Phone: 1419)[address] [place], [place] 6752404-07-2025 11:05-0400 Respiratory rate18 /minBenjamin Ball DO Work Phone: [address] [place], [place] 6752404-07-2025 11:05-0400 SaO2% (BldA) [Mass fraction]96 %Yas Ball DO Work Phone: [address] [place], [place] 6752404-07-2025 11:05-0400 Systolic blood hvbnqgde094 mm[Hg]Yas Ball DO Work Phone: 1419)[address] [place], [place] 6752403-28-2025 06:03-0400 Body aydvpixcjpb89.3 [degF]Yas Ball DO Work Phone: 1419)[address] [place], [place] 6752403-28-2025 06:03-0400 Diastolic blood xsxfsayo33 mm[Hg]Yas Ball DO Work Phone: [address] [place], [place] 6752403-28-2025 06:03-0400 Heart rate69 /minBenjamin Ball DO Work Phone: [address] [place], [place] 6752403-28-2025 06:03-0400 Respiratory rate16 /minBenjamin Ball DO Work Phone: [address] [place], [place] 6752403-28-2025 06:03-0400 SaO2% (BldA) [Mass fraction]94 %Yas Ball DO Work Phone: 1(888)[address] [place], [place] 6752403-28-2025 06:03-0400 Systolic blood lwmrqzyi054 mm[Hg]Yas Ball DO Work Phone: 1(843)[address] [place], [place] 6752403-28-2025 06:00-0400 Body awfbhf81.2 kgBenjamin Ball DO Work Phone: [address] [place], [place] 6752403-26-2025 07:58-0400 Body bpshos095.34 cmBenjamin Ball DO Work Phone: [address] [place], [place] 6752403-17-2025 05:00-0400 Inhaled oxygen flow rate1 L/minBenjamin Ball DO Work Phone: 1(004)[address] [place], [place] 6752403-14-2025 12:17-0400 Diastolic blood dplyppdq79 mm[Hg]Yas Ball DO Work Phone: 1(060)[address] [place], [place] 6752403-14-2025 12:17-0400 Heart rate69 /minBenjamin Ball DO Work Phone: 1(015)[address] [place], [place] 6752403-14-2025 12:17-0400 Inhaled oxygen flow rate3 L/minBenjamin Ball DO Work Phone: 1419)[address] [place], [place] 6752403-14-2025 12:17-0400 Respiratory rate18 /minBenjamin Ball DO Work Phone: [address] [place], [place] 6752403-14-2025 12:17-0400 SaO2% (BldA) [Mass fraction]99 %Yas Ball DO Work Phone: 1(327)[address] [place], [place] 6752403-14-2025 12:17-0400 Systolic blood kqenaosc884 mm[Hg]Yas Ball DO Work Phone: 1(233)[address] [place], [place] 6752403-14-2025 05:45-0400 Body .2 kgBenjamin Ball DO Work Phone: 1(728)[address] [place], [place] 6752403-14-2025 05:44-0400 Body cgnpmjwfcuy38.9 [degF]Yas Ball DO Work Phone: 1(809)[address] [place], [place] 6752403-11-2025 13:50-0400 Body rtxopc230.34 cmBenjamin Ball DO Work Phone: 1(552)[address] [place], [place] 6752403-11-2025 03:09-0400 Inhaled oxygen zzetsltgcdhtb52 %Yas Ball DO Work Phone: 1(686)[address] [place], [place] 6752403-06-2025 08:55-0500 Body urvrpk663.34 [facility] 08:55-0500Body mass index (BMI) [Ratio]28.9 kg/y9HcdafeeliSum[facility] Health [facility]03-06-2025 08:55-0500Body aqsbhw17 kgSum[facility]03-06-2025 08:55-0500 Diastolic blood mm[Hg][facility]03-06-2025 08:55-0500Heart rate69 /[facility]03-06-2025 08:55-0500Respiratory rate12 /[facility]03-06-2025 08:55-0134PoJ2% (BldA) [Mass fraction]96 %[facility] 12-19-2024 08:55-0500Systolic blood rjbxsryc802 mm[Hg][facility]10-24-2024 10:27-0400Diastolic blood zinjrxjg53 mm[Hg]Avery Syed MD Work Phone: [facility]10-24-2024 10:27-0400Heart rate 72 /minAvery Syed MD Work Phone: [facility]10-24-2024 10:27-0400Systolic blood mm[Hg]Avery Syed MD Work Phone: [facility]10-24-2024 10:25-0400Body .3 cmAjoanna Syed MD Work Phone: [facility]10-24-2024 10:25-0400Body mass index (BMI) [Ratio]30.52 kg/w6LvdhcAvery Syed MD Work Phone: [facility]10-24-2024 10:25-0400Body .25 kgAvery Syed MD Work Phone: [facility] Siine Qiyifj37-34-9654 10:33-0400Diastolic blood xqflcier79 mm[Hg]Sidra Pancho DO Work Phone: [facility]bzvx[facility]za[facility]3587 10:33-0400Heart rate70 /min Sidra Pancho DO Work Phone: [facility] HospitalZvkiioxavj62-04-9635 10:33-5072KgE2% (BldA) [Mass fraction]93 %Sidra Pancho DO Work Phone: [facility]El[facility] HospitalQcvgrpvnqg18-30-8593 10:33-0400Systolic blood xqhnafzw033 mm[Hg]Sidra Pancho DO Work Phone: [facility] HospitalNfhfoaxteq04-07-9001 10:44-0400Body .34 cmDO Yas Ball Work Phone: [phone]07-08-2024 10:44-0400 Body mass index (BMI) [Ratio]30.2 kg/m2DO Yas Ball Work Phone: 1(470)492-[address] [place], [place] 4536007-08-2024 10:44-0400 Body xjcrdo49.14 kgDO Yas Ball Work Phone: 1(789)209-[address] [place], [place] 4536007-08-2024 10:44-0400 Diastolic blood dseciqrj14 mm[Hg]DO Yas Ball Work Phone: 1(825)[address]07-08-2024 10:44-0400 Heart rate73 /minDO Yas Ball Work Phone: 1(745)[address]07-08-2024 10:44-0400 Respiratory rate12 /minDO Yas Ball Work Phone: 1(818)[address]07-08-2024 10:44-0400 Systolic blood sxewwkim472 mm[Hg]DO Yas Ball Work Phone: 1(792)[address]05-17-2024 11:11-0400 Body xuxlgz626.34 cmDO Yas Ball Work Phone: 1(500)[address] [place], [place] [address]2405-17-2024 11:11-0400 Body mass index (BMI) [Ratio]30.1 kg/m2DO Yas Ball Work Phone: 1(003)[address]05-17-2024 11:11-0400 Body neveqbwjmlk85 [degF]DO Yas Ball Work Phone: 1(636)[address] [place], [place] [address]2405-17-2024 11:11-0400 Body trviel23.97 kgDO Yas Ball Work Phone: 1(736)[address]05-17-2024 11:11-0400 Diastolic blood kkjdnzic97 mm[Hg]DO Yas Ball Work Phone: 1(635)[address]05-17-2024 11:11-0400 Heart rate67 /Holland Linda Work Phone: [facility]05-17-2024 11:110400 Respiratory rate18 /Holland Linda Work Phone: [facility]05-17-2024 11:11-0400 SaO2% (BldA) [Mass fraction]95 %DO Yas Linda Work Phone: [facility]05-17-2024 11:11-0400 Systolic blood zdvfeons634 mm[Hg]DO Yas Linda Work Phone: [facility]04-25-2024 10:19-0400 Diastolic blood ixcidpqu99 mm[Hg]Avery Syed MD [facility] Phone: [facility]72[facility]-6551 10:19-0400Heart rate 70 /minAvery Syed MD Work Phone: [facility] Siine Ycraid75-53-0681 10:190400Systolic blood owkfnrjo621 mm[Hg]Avery Syed MD Work Phone: [facility]04-25-2024 10:18-0400Body mass index (BMI) [Ratio]29.99 kg/o1LfqbyAvery Syed MD Work Phone: [facility]04-25-2024 10:18-0400Body ywgrfq02.52 kgAvery Syed MD Work Phone: [facility] Siine Tztvaj80-51-2012 10:07-0500Body niufhi751.34 cmDO Yas Linda Work Phone: [facility]03-04-2024 10:07-0500 Body mass index (BMI) [Ratio]30.2 kg/m2DO Yas Ball Work Phone: [facility]03-04-2024 10:07-0500 Body mmdbyc84.2 kgDO Yas Ball Work Phone: [facility]03-04-2024 10:07-0500 Diastolic blood uzeprqtj06 mm[Hg]DO Yas Ball Work Phone: 1(023)642-16[facility]03-04-2024 10:07-0500 Heart rate72 /minDO Yas Ball Work Phone: 1(817)010-03[facility]03-04-2024 10:07-0500 Respiratory rate12 /minDO Yas Ball Work Phone: 1(517)742-23[facility]03-04-2024 10:07-0500 Systolic blood xalhqalx378 mm[Hg]DO Yas Ball Work Phone: 1(730)[address]11-17-2023 13:51-0500 Body .34 cmDO Yas Ball Work Phone: 1(598)[address]11-17-2023 13:51-0500 Body lbvxqwnvyoi18.7 [degF]DO Yas Ball Work Phone: 1(693)[address]11-17-2023 13:51-0500 Body pkxstu07.02 kgDO Yas Ball Work Phone: 1(624)[address]11-17-2023 13:51-0500 Diastolic blood yehblsqm01 mm[Hg]DO Yas Ball Work Phone: 1(820)156-71[facility]11-17-2023 13:51-0500 Heart rate70 /minDO Yas Ball Work Phone: 1(349)700-[address] [place], [place] 4536011-17-2023 13:51-0500 Respiratory rate20 /minDO Yas Ball Work Phone: 1(585)282-64[facility]11-17-2023 13:51-0500 SaO2% (BldA) [Mass fraction]96 %DO Yas Ball Work Phone: 1(729)259-70[facility]11-17-2023 13:51-0500 Systolic blood qstjcpru018 mm[Hg]DO Yas Ball Work Phone: 1([phone]11-07-2023 10:00-0500 Body heightBenjamin Ball Other [employer] Other 11-07-2023 10:00-0500Body mass index (BMI) [Ratio] 29.35 kg/r9Fsosjadh Ball Other [employer] Other 11-07-2023 10:00-0500Body .16 kgBenjamin Ball Other [employer] Other 11-07-2023 10:00-0500Diastolic blood pnwoyvot70 mm[Hg] Yas Ball Other [employer] Other 11-07-2023 10:00-0500Respiratory rate12 /minBenjamin Ball Other [facility] [employer] Other 11-07-2023 10:00-0500Systolic blood fohfceta896 mm[Hg] Yas Ball Other [employer] Other 07-06-2023 09:30-0400Body heightBenjamin Ball Other [employer] Other 07-06-2023 09:30-0400Body mass index (BMI) [Ratio] 29.62 kg/p3Tgtaeioi Ball Other [employer] Other 07-06-2023 09:30-0400Body wnustc36.07 kgBenjamin Ball Other [employer] Other 07-06-2023 09:30-0400Diastolic blood lejwpuss76 mm[Hg] Yas Ball Other [employer] Other 07-06-2023 09:30-0400Respiratory rate12 /minBenjamin Ball Other [employer] Other 07-06-2023 09:30-0400Systolic blood tflxseak352 mm[Hg] Yas Ball Other [employer] Other 03-02-2023 10:00-0500Body heightBenjamin Ball Other [employer] Other 03-02-2023 10:00-0500Body mass index (BMI) [Ratio] 29.81 kg/z1Airaeimv Ball Other [employer] Other 03-02-2023 10:00-0500Body xluwzx59.7 kgBenjamin Ball Other [employer] Other 03-02-2023 10:00-0500Diastolic blood jyikkvrw72 mm[Hg] Yas Ball Other [employer] Other 03-02-2023 10:00-0500Respiratory rate12 /minBenjamin Ball Other [employer] Other 03-02-2023 10:00-0500Systolic blood ifxlhkdi547 mm[Hg] Yas Ball Other [employer] Other [id number] 14:11-0500Body fdlmam72.9 kgDO Yas Ball Work Phone: [facility]11-18-2022 14:11-0500 Diastolic blood gvygozhf76 mm[Hg]DO Yas Ball Work Phone: [facility]11-18-2022 14:11-0500 Heart rate60 /minDO Yas Ball Work Phone: [facility]11-18-2022 14:11-0500 Respiratory rate20 /minDO Yas Ball Work Phone: [phone])195-[address] [place], [place] 4536011-18-2022 14:11-0500 SaO2% (BldA) [Mass fraction]96 %DO Yas Ball Work Phone: [phone])[address]11-18-2022 14:11-0500 Systolic blood lyjyqvyg787 mm[Hg]DO Yas Ball Work Phone: 1419)[address] [place], [place] 6752410-06-2022 10:13-0400 Diastolic blood fopiccsc08 mm[Hg]DO Yas Ball Work Phone: 1419)[address] [place], [place] 6752410-06-2022 10:13-0400 Heart rate60 /minDO Yas Ball Work Phone: 1419)[address] [place], [place] 6752410-06-2022 10:13-0400 Respiratory rate16 /minDO Yas Ball Work Phone: 1419)[address] [place], [place] 6752410-06-2022 10:13-0400 SaO2% (BldA) [Mass fraction]95 %DO Yas Ball Work Phone: 1419)[address] [place], [place] 6752410-06-2022 10:13-0400 Systolic blood pkbdifsz690 mm[Hg]DO Yas Ball Work Phone: 1419)[address] [place], [place] 6752410-06-2022 08:10-0400 Body voxjws103.34 cmDO Yas Ball Work Phone: 1419)[address] [place], [place] 6752410-06-2022 08:10-0400 Body uppbcextcie67.2 [degF]DO Yas Ball Work Phone: 1(419)[address] [place], [place] 6752410-06-2022 08:10-0400 Body qzapah86.71 kgDO Yas Ball Work Phone: 1419)[address] [place], [place] 6752409-02-2022 10:25-0400 Body jtsinluklkp92.2 [degF]DO Yas Ball Work Phone: 1419)[address] [place], [place] 6752409-02-2022 10:25-0400 Diastolic blood ahkzhmiw25 mm[Hg]DO Yas Ball Work Phone: [address] [place], [place] 6752409-02-2022 10:25-0400 Heart rate62 /Holland Linda Work Phone: [facility]09-02-2022 10:25-0400 Respiratory rate18 /Holland Linda Work Phone: [facility]09-02-2022 10:25-0400 SaO2% (BldA) [Mass fraction]98 %DO Yas Linda Work Phone: [facility]09-02-2022 10:25-0400 Systolic blood ljtusgfp172 mm[Hg]DO Yas Linda Work Phone: [facility]08-19-2022 09:55-0400 Body eaomfw897.34 cmDO Yas Linda Work Phone: [facility]08-19-2022 09:55-0400 Body .85 kgDO Yas Linda Work Phone: [facility] Encounters Encounter DateEncounter TypeCare ProviderFacilityStart: 08-27-2025 End: 14-54-3456Kjhgtg flowsheetAnthony S Rusher DPM Work Phone: noONtheAIRHinesville PodiatryStart: 08-27-2025 End: 40-91-3019Ujswgu flowsheetAnthony S Rusher DPM Work Phone: noONtheAIRHinesville PodiatryStart: 08-27-2025 End: 45-23-3965Vhqettz encounter procedureAnthony S Rusher DPM Work Phone: NOONtheAIRHinesville PodiatryComment on above:Onychomycosis (Primary Dx); Onychodystrophy; Diabetic polyneuropathy associated with type 2 diabetes mellitus (HCC)Start: 08-27-2025 End: 82-70-9984aorngvpwonXINNTOM S RUSHERNot AvailableStart: 08-26-2025 ambulatoryBLAIR GRUBBUniversity [facility] Herm[facility] Hospitaltart: 08-21-2025 ambulatoryBLAIR GRUBBUniversity Memorial Hermann Greater Heights Hospitaltart: 08-21-2025 End: 80-83-0494qilochwwudVpblepfe Ball DO Work Phone: -[facility] ClydeStart: 08-21-2025 End: 35-27-5169Tbdifpy encounter procedureZahida Flowers MD-[facility] Work Phone: Start: 87-57-6725Lkn-patient / Non-visitZahida Flowers MD -[facility] Work Phone: Start: 87-15-9688gckgalykjaJQPNC GRUBBUniCommunity Memorial Hospitaltart: 07-22-2025 End: 83-90-2925cnehuceegtAtsmcskl Ball DO Work Phone: [facility] Work Phone: Start: 07-22-2025 End: 90-92-7259Zopzhjh encounter procedureBenalbert Linda DO-[facility] Work Phone: Start: 60-29-4922Gqm-patient / Non-visitCatherine Sha STREETCAR REPAIRER-[facility] Work Phone: Start: 07-08-2025 End: 98-81-1439eeccrmunbkMefcktav Ball DO Work Phone: [facility] Work Phone: Start: 07-08-2025 End: 03-69-6580Fznwccv encounter procedureBenalbert Ball DO-[facility] Work Phone: Start: 07-07-2025 End: 16-66-2775pfwzfiqgpwWgpdkjut Ball DO Work Phone: [facility] Work Phone: Start: 07-07-2025 End: 33-28-6490Bzuionj encounter procedureSidra Deleon DO-[facility] Work Phone: Start: 07-69-9236Eqv-patient / Non-visitBenjamin Ball DO-[facility] Work Phone: Start: 65-25-3276wbulxnlaegBBMIZTriHealth Bethesda North Hospitaltart: 14-76-2470Ajqzkefzwq RecurringChivo Keller II DO-[facility] Work Phone: Start: 06-06-2025 End: 33-87-5441lfssoqwbwoBdxsvfxm Ball DO Work Phone: [facility] Work Phone: Start: 06-06-2025 End: 62-56-5641Raoiuab encounter procedureKecia Mayfield DENTAL HYGIENE INSTRUCTORVonC-[facility] Work Phone: Start: 05-30-2025 End: 39-46-7688Ycgvdief Result EncounterChivo Keller DO Work Phone: noms External Department UnsolicitedStart: 05-30-2025 End: 45-27-9923Hmvxjzol Result EncounterChivo Keller DO Work Phone: noms External Department UnsolicitedStart: 05-29-2025 ambulatoryBLAIR GROhioHealth Mansfield Hospitaltart: 05-27-2025 End: 39-52-3827fnrklxoawlLQGK [facility] Centertart: 05-26-2025 End: 57-69-3870Siywxj flowsheetAnthony S Rusher DPM Work Phone: noms [place] [facility]iatryStart: 05-26-2025 End: 92-30-8958Rtulef flowsheetAnthony S Rusher DPM Work Phone: noms [place] [facility]iatryStart: 05-26-2025 End: 80-38-3389Fanysfo encounter procedureAnthony S Rusher DPM Work Phone: noms [place] PodiatryComment on above:Onychomycosis (Primary Dx); Onychodystrophy; Diabetic polyneuropathy associated with type 2 diabetes mellitus (HCC)Start: 05-26-2025 End: 50-41-0844wwisswfwgwXrdkgnud Brink PTANOMS [facility]rendan Physical TherapyComment on above:Greater trochanteric bursitis of left hip (Primary Dx); History of total hip arthroplasty, right; Left hip painStart: 05-23-2025 End: 98-36-6132Hnfikn flowsheetMarshall Brink PTANOMS [facility] Start: 05-23-2025 End: 57-70-8247Proawm flowsheetMarshall Brink PTANOMS [facility] Start: 05-23-2025 End: 58-09-5719rnxikabvhyRnrwtlep Brink PTANOMS [facility]rendan Physical TherapyComment on above:Greater trochanteric bursitis of left hip (Primary Dx); History of total hip arthroplasty, right; Left hip painStart: 05-21-2025 End: 52-72-5760Ifblhz flowsheetMarshall Brink PTANOMS [facility] Start: 05-21-2025 End: 94-95-4608Kkdzse flowsheetMarshall Brink PTANOMS [facility] Start: 05-21-2025 End: 03-43-5935lhscwphdzkClcwcgwf Brink PTANOMS Brendan Physical TherapyComment on above:Greater trochanteric bursitis of left hip (Primary Dx); History of total hip arthroplasty, right; Left hip painStart: 05-19-2025 End: 89-68-4380Judfzg flowsheetMelissa Kelbley PTANOMS [facility] Start: 05-19-2025 End: 44-71-6648Pgrjof flowsheetMelissa Kelbley PTANOMS [facility] Start: 05-19-2025 End: 53-84-1722nlqtbilxlfThstnwe Kelbley PTANOMS [facility]rendan Physical TherapyComment on above:Greater trochanteric bursitis of left hip (Primary Dx); History of total hip arthroplasty, right; Left hip painStart: 05-16-2025 End: 65-85-2908Nuxwtl flowsheetMarshall Brink PTANOMS [facility] Start: 05-16-2025 End: 53-66-0552Yqfntq flowsheetMarshall Brink PTANOMS [facility] Start: 05-16-2025 End: 23-41-7138lusadyzadbYmmncbfh Brink PTANOMS [facility]rendan Physical TherapyComment on above:Greater trochanteric bursitis of left hip (Primary Dx); History of total hip arthroplasty, right; Left hip painStart: 05-14-2025 End: 27-02-2530Ycclxs flowsheetKilo Andrews PTANOMS [facility] Start: 05-14-2025 End: 27-03-2142Wbhzca flowsheetKilo Andrews PT[facility] Start: 05-14-2025 End: 43-92-8648dnkctpdzkzWikrbxsf Brink PTANOMS [facility] Physical TherapyComment on above:Greater trochanteric bursitis of left hip (Primary Dx); History of total hip arthroplasty, right; Left hip painStart: 05-12-2025 End: 36-01-9308Ikwmvm flowsheetMelissa Kelbley PTANOMS [facility] Start: 05-12-2025 End: 94-58-1812Wylliu flowsheetMelissa Kelbley PTAN[facility] Start: 05-12-2025 End: 76-05-1483dmmvkbawtaWpppyno Kelbley PTANOMS [facility] Physical TherapyComment on above:Greater trochanteric bursitis of left hip (Primary Dx); History of total hip arthroplasty, right; Left hip painStart: 05-09-2025 End: 50-41-1703Olelub flowsheetMelissa Kelbley PTANOMS CI PTStart: 05-09-2025 End: 66-06-1148Kuvcuc flowsheetMelissa Kelbley PTANOMS CI PTStart: 05-09-2025 End: 42-55-7919aygvkginvtDgjaerv Kelbley PTANOMS CI PTComment on above:Greater trochanteric bursitis of left hip (Primary Dx); History of total hip arthroplasty, right; Left hip painStart: 05-07-2025 End: 62-30-9205Dtewdu flowsheetMelissa Kelbley PTANOMS CI PTStart: 05-07-2025 End: 14-52-0816Szvzle flowsheetMelissa Kelbley PTANOMS CI PTStart: 05-07-2025 End: 78-53-6098bbinpwkgguUuqedzt Kelbley PTANOMS CI PTComment on above:Greater trochanteric bursitis of left hip (Primary Dx); History of total hip arthroplasty, right; Left hip painStart: 05-05-2025 End: 61-29-9979Ldlaqo flowsheetMelissa Kelbley PTANOMS CI PTStart: 05-05-2025 End: 35-78-7371Rgcliu flowsheetMelissa Kelbley PTANOMS CI PTStart: 05-05-2025 End: 18-30-9185lxkseszoztDardmnx Kelbley PTANOMS CI PTComment on above:Greater trochanteric bursitis of left hip (Primary Dx); History of total hip arthroplasty, right; Left hip painStart: 2025 End: 82-78-1567Efyvgj flowsheetMelissa Kelbley PTANOMS CI PTStart: 2025 End: 48-11-5533Ouwxqk flowsheetMelissa Kelbley PTANOMS CI PTStart: 2025 End: 57-61-5326bqdlqcivghYuzldzf Kelbley PTANOMS CI PTComment on above:Greater trochanteric bursitis of left hip (Primary Dx); History of total hip arthroplasty, right; Left hip painStart: 04-30-2025 End: 65-56-2202Yowzfp flowsheetMarshall Brink PTANOMS CI PTStart: 04-30-2025 End: 67-65-5755Ixdzkp flowsheetMarshall Brink PTANOMS CI PTStart: 04-30-2025 End: 92-64-5106fbfbfpidetYqsdcvta Brink PTANOMS CI PTComment on above:Greater trochanteric bursitis of left hip (Primary Dx); History of total hip arthroplasty, right; Left hip painStart: 04-29-2025 End: 97-44-1329hcbrpyesgoPpsctzhr Ball DO Work Phone: [facility] Work Phone: Start: 04-29-2025 End: 04-68-7214Naixppw encounter procedureThsekou [facility] Work Phone: Start: 04-28-2025 End: 37-05-4652Hriqsa flowsheetMarshall Brink PTANOMS CI PTStart: 04-28-2025 End: 67-71-8461Blrven flowsheetMarshall Brink PTANOMS CI PTStart: 04-28-2025 End: 54-43-1013mhpotkyrvzYitqctle Brink PTANOMS CI PTComment on above:Greater trochanteric bursitis of left hip (Primary Dx); History of total hip arthroplasty, right; Left hip painStart: 04-25-2025 End: 98-82-2009Yieuhy flowsheetMarshall Brink PTANOMS CI PTStart: 04-25-2025 End: 26-88-4290Cglbfj flowsheetMarshall Brink PTANOMS CI PTStart: 04-25-2025 End: 78-51-3092hhijhmzvtwPuttzfks Brink PTANOMS CI PTComment on above:Greater trochanteric bursitis of left hip (Primary Dx); History of total hip arthroplasty, right; Left hip painStart: 04-23-2025 End: 90-11-6127Albmvl flowsheetMelissa Kelbley PTANOMS CI PTStart: 04-23-2025 End: 60-75-7921Whiqxp flowsheetMelissa Kelbley PTANOMS CI PTStart: 04-23-2025 End: 20-54-1280czmjicbfbaWcocvdb Kelbley PTANOMS CI PTComment on above:Greater trochanteric bursitis of left hip (Primary Dx); History of total hip arthroplasty, right; Left hip painStart: 04-21-2025 End: 97-01-5676Nalfak flowsheetMelissa Kelbley PTANOMS CI PTStart: 04-21-2025 End: 65-16-4557Kikzlr flowsheetMelissa Kelbley PTANOMS CI PTStart: 04-21-2025 End: 46-31-9687kkfnvdrhmeOoyacmr Kelbley PTANOMS CI PTComment on above:Greater trochanteric bursitis of left hip (Primary Dx); History of total hip arthroplasty, right; Left hip painStart: 04-17-2025 End: 92-80-0080Kobivng encounter Jose Flowers MD-[facility] Ne[facility] Work Phone: Start: 04-17-2025 End: 92-55-9865Gjgmol flowsheetMarshall Brink PTANOMS CI PTStart: 04-17-2025 End: 87-30-0994Oqznpk flowsheetMarshall Brink PTANOMS CI PTStart: 04-17-2025 End: 54-86-0429vudftxlpwgXsnevyek Brink PTANOMS CI PTComment on above:Greater trochanteric bursitis of left hip (Primary Dx); History of total hip arthroplasty, right; Left hip painStart: 04-15-2025 End: 03-82-6628isgitvwsgaUznyyt T Katya PT Work Phone: noms CI PTComment on above:Greater trochanteric bursitis of left hip (Primary Dx); History of total hip arthroplasty, right; Left hip painStart: 04-14-2025 End: 52-38-5850zhuceaibgqYRIUHH [facility] Start: 04-14-2025 End: 36-60-1308Ltzmnp flowsheetMarshall Brink PTANOMS CI PTStart: 04-14-2025 End: 93-76-7332Cfcrbm flowsheetMarshall Brink PTANOMS CI PTStart: 04-14-2025 End: 97-43-6477ehxrbfodynSmihoywb Brink PTANOMS CI PTComment on above:Greater trochanteric bursitis of left hip (Primary Dx); History of total hip arthroplasty, right; Left hip painStart: 04-11-2025 End: 47-96-1908Oeipmc flowsheetMarshall Brink PTANOMS CI PTStart: 04-11-2025 End: 77-16-4624Cqesgo flowsheetMarshall Brink PTANOMS CI PTStart: 04-11-2025 End: 58-35-5628gvgtuiizjcVcjsvccc Brink PTANOMS CI PTComment on above:Greater trochanteric bursitis of left hip (Primary Dx); History of total hip arthroplasty, right; Left hip painStart: 04-09-2025 End: 52-94-8382Jbbydk flowsheetMelissa Kelbley PTANOMS CI PTStart: 04-09-2025 End: 11-87-1374Urbjdj flowsheetMelissa Kelbley PTANOMS CI PTStart: 04-09-2025 End: 16-63-9619tnqaeuzgvwXyqxylh Kelbley PTANOMS CI PTComment on above:Greater trochanteric bursitis of left hip (Primary Dx); History of total hip arthroplasty, right; Left hip painStart: 55-99-5363Dnr-patient / Non-visitZahida Flowers MD-[facility] Work Phone: Start: 04-07-2025 End: 45-25-9800pmgabhikpwTgrurmp Kelbley PTANOMS CI PTComment on above:Greater trochanteric bursitis of left hip (Primary Dx); History of total hip arthroplasty, right; Left hip painStart: 04-07-2025 End: 63-05-8316Kinhmk flowsheetMelissa Kelbley PTANOMS CI PTStart: 04-07-2025 End: 48-31-6078Wwfcgo flowsheetMelissa Kelbley PTANOMS CI PTStart: 04-07-2025 [facility] End: 59-24-7859Cjaxbgz encounter procedureYas Linda DO-[facility] Work Phone: Start: 04-04-2025 End: 78-49-2149Dwftyv flowsheetMarshall Brink PTANOMS CI PTStart: 04-04-2025 End: 59-16-8115Ziljww flowsheetMarshall Brink PTANOMS CI PTStart: 04-04-2025 End: 04-38-9593zwkbckblrdOatsziir Brink PTANOMS CI PTComment on above:Greater trochanteric bursitis of left hip (Primary Dx); History of total hip arthroplasty, right; Left hip painStart: 04-02-2025 End: 61-29-1928Lclixz flowsheetKilo Brjagruti PTANOMS CI PTStart: 04-02-2025 End: 82-14-6155Kyiyvb flowsheetKilo Brjagruti PTANOMS CI PTStart: 04-02-2025 End: 46-33-3278optikwttooGhwcuhby Brjagruti PTANOMS CI PTComment on above:Greater trochanteric bursitis of left hip (Primary Dx); History of total hip arthroplasty, right; Left hip painStart: 03-31-2025 End: 33-83-7477Svwayv [employer] Work Phone: noms CI PTStart: 03-31-2025 End: 26-91-2881Kmogym [employer] PT Work Phone: noms CI PTStart: 03-31-2025 End: 89-02-1159tmetntdoerBdpejz T Blackston PT Work Phone: noms CI PTComment on above:Greater trochanteric bursitis of left hip (Primary Dx); History of total hip arthroplasty, right; Left hip painStart: 03-28-2025 End: 83-43-1841Hsgbdp flowsheetKilo Andrews PTANOMS CI PTStart: 03-28-2025 End: 16-95-7823Ihzfch flowsheetKilo Andrews PTANOMS CI PTStart: 03-28-2025 End: 98-77-2909crpstloptlVpbnlcmx Brink PTANOMS CI PTComment on above:Greater trochanteric bursitis of left hip (Primary Dx); History of total hip arthroplasty, right; Left hip painStart: 03-26-2025 End: 93-05-2904Udqfmd flowsSun Riley PTANOMS CI PTStart: 03-26-2025 End: 98-58-6385Udsxct flowsheetApolloflaviodarwin Riley PTANOMS CI PTStart: 03-26-2025 End: 76-09-2140bixopxmamkXnfbtjn Scooby PTANOMS CI PTComment on above:Greater trochanteric bursitis of left hip (Primary Dx); History of total hip arthroplasty, right; Left hip painStart: 03-25-2025 End: 37-36-9585mdqwranhanTxfqbltz Ball DO Work Phone: [facility] Work Phone: Start: 03-25-2025 End: 30-67-5005Jzfzsjl encounter procedureBenjamin Ball DO-[facility] Work Phone: Start: 03-25-2025 End: 28-56-2927Wmdmdmks Ball DO Work Phone: [facility] Work Phone: Start: 03-25-2025 End: 37-20-4611xwukvtxfraTYDBDayton Children's Hospitaltart: 03-24-2025 End: 13-73-1478zzyzhacacjSmermyo Kelbley PTANOMS CI PTComment on above:Greater trochanteric bursitis of left hip (Primary Dx); History of total hip arthroplasty, right; Left hip painStart: 03-24-2025 End: 31-51-3532Laaemf flowsheetMelissa Kelbley PTANOMS CI PTStart: 03-24-2025 End: 60-15-7793Vrumxm flowsheetMelissa Kelbley PTANOMS CI PTStart: 03-21-2025 End: 11-79-4464Odwicz flowsheetMarshall Brink PTANOMS CI PTStart: 03-21-2025 End: 30-09-3741Obvcqa flowsheetMarshall Brink PTANOMS CI PTStart: 03-21-2025 End: 20-80-9753cgqbuzngnvQyiccolg Brink PTANOMS CI PTComment on above:Greater trochanteric bursitis of left hip (Primary Dx); History of total hip arthroplasty, right; Left hip painStart: 03-19-2025 End: 98-93-0687gtktmkpuifLbqodq T Blackston PT Work Phone: noms CI PTComment on above:Greater trochanteric bursitis of left hip (Primary Dx); History of total hip arthroplasty, right; Left hip painStart: 03-19-2025 End: 37-71-4014Lyuvbc Carlito Clay PT Work Phone: noms CI PTStart: 03-19-2025 End: 32-12-6207Jynnlw Carlito Clay PT Work Phone: noms CI PTStart: 56-18-3164moybqqakvhEMRYSelect Medical Specialty Hospital [facility]-Fairhilltart: 02-28-2025 End: 66-96-0092Fqfwbzcg Result EncounterRajdomo Lynda Keller DO Work Phone: noms External Department UnsolicitedStart: 02-28-2025 End: 75-67-1393Dhnzcssd Result EncounterRajdomo Lynda Keller DO Work Phone: noms External Department UnsolicitedStart: 02-28-2025 Registered RecurringChivo Keller II [facility] Work Phone: Start: 78-53-0457Gqhtbrke Ball DO Work Phone: [facility] Work Phone: Start: 02-28-2025 End: 80-92-9184Totdrbu encounter procedureChivo Keller II [facility] Work Phone: Start: 02-28-2025 End: 64-51-5782Ltdlggmc Ball DO Work Phone: [facility] Work Phone: Start: 02-25-2025 End: 47-96-1144nsyrerkonoGewgbjhq Ball DO Work Phone: [facility] Work Phone: Start: 02-25-2025 End: 92-83-4772Gudjtba encounter procedureWalker Soria MD-[facility] Work Phone: Start: 02-25-2025 End: 77-40-0145Vijzmtlc Ball DO Work Phone: [facility] Work Phone: Start: 02-24-2025 End: 89-92-9344Xgaoildv Result EncounterChivo Howell Arianna DO Work Phone: noms External Department UnsolicitedStart: 02-24-2025 End: 02-38-6124Etgojwrd Result EncounterChivo Howell Arianna DO Work Phone: noms External Department UnsolicitedStart: 02-24-2025 Yas Ball DO Work Phone: [facility] Work Phone: Start: 02-21-2025 End: 43-64-7399Eqoohy flowsheetAnthony S Rusher DPM Work Phone: noms PODIATRYStart: 02-21-2025 End: 61-10-3527Lknsrc flowsheetAnthony S Rusher DPM Work Phone: noms PODIATRYStart: 02-21-2025 End: 95-57-8119Fvhjvj outpatient new 30 minutesAnthony S Rusher DPM Work Phone: noms PODIATRYComment on above:Diabetic polyneuropathy associated with type 2 diabetes mellitus (CMS/HCC) (Primary Dx); Onychodystrophy; OnychomycosisStart: 02-21-2025 End: 04-84-2430hizznzdzyvYOEWKIM S RUSHERNot AvailableStart: 77-95-7713Wma- patient / Non-visitBenjamin Ball DO-[facility] Work Phone: Start: 37-97-5799Eoebteea Ball DO Work Phone: [facility] GroupNav[facility] Work Phone: Start: 01-28-2025 End: 38-09-0926tlwnucygjrXtahpfnj Ball DO Work Phone: [facility] Work Phone: Start: 01-28-2025 End: 95-57-1263Nboohle encounter procedureBenjamin Ball DO-[facility] Work Phone: Start: 01-28-2025 End: 13-82-9413Fvoddyhx Ball DO Work Phone: [facility] Work Phone: Start: 01-28-2025 End: 56-35-4046okjnuawhilRWGKGGE [facility] Hospitaltart: 01-27-2025 End: 31-39-5945Pglgzzuqc encounterConnie MURPHY [facility] HospitaloStart: 37-67-5439xuvaspotlvIQCX [facility] Centertart: 01-20-2025 End: 20-11-2224ltbmyevqitPzvfvbva Ball DO Work Phone: [facility] Work Phone: Start: 01-20-2025 End: 55-33-4430Grjnexp encounter procedureZahida Flowers MD-[facility] Work Phone: Start: 01-20-2025 End: 20-49-3333Xfveothn Ball DO Work Phone: [facility] Work Phone: Start: 01-16-2025 End: 87-32-6879grysomospvMxboqoan Ball DO Work Phone: [facility] Work Phone: Start: 01-16-2025 End: 00-10-9480Dvtjxiic Ball DO Work Phone: [facility] Work Phone: Start: 01-14-2025 End: 13-10-6500Cpbnnnjv Ball DO Work Phone: [facility] Work Phone: Start: 01-14-2025 End: 40-52-7929cmqffxiwwcRrmgzhdn Ball DO Work Phone: [facility] Work Phone: Start: 92-65-9652Aqogrues Ball DO Work Phone: [facility] Work Phone: Start: 91-45-7765Kjczcjps Ball DO Work Phone: [facility] Work Phone: Start: 50-35-5613Dipqnxqv Ball DO Work Phone: [facility] Work Phone: Start: 18-91-9443Qlzyhgbe Ball DO Work Phone: [facility] Work Phone: Start: 43-83-0976Qburnpbf Ball DO Work Phone: [facility] Re[facility] Sp[facility] Work Phone: Start: 36-37-4443Zxpsojwl Ball DO Work Phone: [facility] Work Phone: Start: 12-27-2024 End: 41-64-4391Sbhinmkl Ball DO Work Phone: [facility] Work Phone: Start: 12-27-2024 End: 69-11-3806Rcfnjaehab and management of inpatientBenjamin Ball DO Work Phone: [facility] Work Phone: Start: 23-55-2771ywnvakmkxsMLVPSamaritan Hospitaltart: 48-10-6965Tqu-patient / Non-visitBenjamin Ball DO Work Phone: [facility] Work Phone: Start: 57-40-4887Vvmpleng Ball DO Work Phone: [facility] Work Phone: Start: 06-87-5861Bxf-patient / Non-visitBenjamin Ball DO Work Phone: [facility] Work Phone: Start: 26-43-2448Lrjrnvgd Ball DO Work Phone: [facility] Work Phone: Start: 51-60-7200Acz-patient / Non-visitBenjamin Ball DO Work Phone: [facility] Orthoped[facility] Work Phone: Start: 00-55-2096Ifzbzell Ball DO Work Phone: [facility] Work Phone: Start: 81-98-2619Zgz-patient / Non-visitBenjamin Ball DO Work Phone: [facility] Cardiology Work Phone: Start: 87-93-5631Vmtbqzfb Ball DO Work Phone: [facility] Work Phone: Start: 14-94-7500Tmlswwxk Ball DO Work Phone: [facility] Orth[facility] Work Phone: Start: 12-21-2024 End: 22-41-1179Eovqyzdp Ball DO Work Phone: [facility] Work Phone: Start: 12-21-2024 End: 87-67-9206Qhykiffvqw and management of inpatientBenjamin Ball DO Work Phone: [facility] Work Phone: Start: 43-97-0303Xds-patient / Non-visitBenjamin Ball DO Work Phone: [facility] Work Phone: Start: 85-48-8566Irksarzf Ball DO Work Phone: [facility] Work Phone: Start: 12-19-2024 End: 45-57-4184krenmjurznRpkkgcqjaUniversity Hospitals [facility] Work Phone: Start: 12-19-2024 End: 63-39-1963Dgbmykm encounter procedureRandolph Health Physician [facility] Work Phone: Start: 12-19-2024 End: 68-28-2512Sqobzusy Ball DO Work Phone: [facility] Work Phone: Start: 12-04-2024 End: 97-64-7517Tdwikv flowsheetMarilin Bhardwaj CCC-A Work Phone: NOMS CI AUDStart: 12-04-2024 End: 28-77-5723Mwhggd flowsheetMarilin Goyal Danna CCC-A Work Phone: noMS CI AUDStart: 12-04-2024 End: 27-14-9309Awqeclnx SupportMarilin Bhardwaj CCC-A Work Phone: noMS CI AUDComment on above:Sensorineural hearing loss (SNHL) of both ears (Primary Dx)Start: 38-78-7431chepkvtvltYLBYSelect Medical Specialty Hospital - Cleveland-Fairhilltart: 11-13-2024 End: 87-93-5113amqnoenixdPLHGHIT [facility] Hospitaltart: 66-09-1234Ttb-patient / Non-visitRandolph Health Physician [facility] Work Phone: Start: 74-51-8949Kfqbyzwj Ball DO Work Phone: [facility] GroupNav[facility] Work Phone: Start: 73-18-0255ikelajlwuoDYGTCleveland Clinic Mercy Hospitaltart: 21-71-5316oasbgqzkluFPXPCleveland Clinic Mercy Hospitaltart: 10-17-2024 End: 08-98-3062plmcruyhduKZZUSamaritan Hospitaltart: 17-97-3742Abt-patient / Non-visitRandolph Health Physician GroupNavos Health Professional [facility] Work Phone: Start: 73-63-2130glknlzmhgoDYCWCleveland Clinic Mercy Hospitaltart: 92-24-6987wexstshjvcUCJSCleveland Clinic Mercy Hospitaltart: 64-00-3482hhegpkpwtmGDYXCleveland Clinic Mercy Hospitaltart: 10-81-7735Geirjyqrl for preprocedural cardiovascular examination TRANG [facility] Centertart: 09-10-2024 End: 64-72-6786hiofeawnfmNVUNCleveland Clinic Mercy Hospitaltart: 44-21-4746ssogvaroujEHLNCleveland Clinic Mercy Hospitaltart: 08-22-2024 End: 06-03-3145nsfelsyxatRicmsvkk BallFacility:[facility] Start: 08-21-2024 End: 28-01-3785Babrzj Kodak Bhardwaj [facility] Work Phone: NOMS CI AUDStart: 08-21-2024 End: 43-17-1196Lyxtcidarien Bhardwaj [facility] Work Phone: noms CI AUDStart: 08-21-2024 End: 04-87-7007Eoaygmzg SupportFrancisconoel Bhardwaj [facility] Work Phone: noms CI AUDComment on above:Bilateral impacted cerumen (Primary Dx)Start: 08-08-2024 End: 89-35-6732Rdrwtl outpatient visit 25 minutesAvery Syed MD Work Phone: [facility] [place] Comment on above:Stage 4 chronic kidney disease (CMS-HCC) (Primary Dx)Start: 07-09-2024 End: 14-15-7143Wooixw flowsheetNicole Pancho DO Work Phone: noms [address]TEStart: 07-09-2024 End: 81-27-7268Irtoxq flowsheetNicole Pancho DO Work Phone: noms [address]TEStart: 07-09-2024 End: 67-16-3025Dmgith outpatient visit 25 minutesNicole Pancho DO Work Phone: noms [address] R[address]TEComment on above:MOLINA (obstructive sleep apnea) (Primary Dx); Hypersomnia; Primary insomnia; Snoring; HypoxiaStart: 04-29-2024 End: 66-69-8173Gihplwdgd encounterScanning Provider ExternalPHN [facility] ToledoStart: 04-22-2024 End: 67-42-0409xjkuzkoesmHZ [facility] Work Phone: [facility] Work Phone: Start: 04-22-2024 End: 90-90-9780Egsjscf encounter procedureDO [facility] Work Phone: [facility] Work Phone: Start: 03-01-2024 End: 65-14-4364nzjxnvyvvfWG [facility] Work Phone: [facility] Work Phone: start: 03-01-2024 End: 64-86-7590Fdypvut encounter procedureDO Yas Linda Work Phone: [facility] Work Phone: Start: 00-74-0373Xhegokqtft RecurringDO Yas Linda Work Phone: [facility] Work Phone: Start: 02-08-2024 End: 46-25-2681Cjrrwf outpatient visit 25 minutesAvery Syed MD Work Phone: [facility] Comment on above:Stage 4 chronic kidney disease (CMS-HCC) (Primary Dx)Start: 21-58-2516Lvt-patient / Non-visitDO Yas Linda Work Phone: [facility] Phys[facility] Work Phone: Start: 01-26-2024 End: 30-28-4327Syebwyjgl encounterLaquise Abran ZARATEPHStefania [facility] ToledoStart: 51-05-3702Vpe-patient / Non-visitDO Yas Linda Work Phone: [facility] Phys[facility] Work Phone: Start: 12-18-2023 End: 20-79-7253bnwiyrgrsgUiwzxpus Ball Other [employer] Other Start: 76-51-8283Henwqdwoa encounterBenleslygrady LindaDANILOG [facility] ClinicStart: 12-18-2023 End: 42-80-1957Lvwczsc encounter procedureDO Yas Linda Work Phone: [facility]CL[facility] Work Phone: Start: 09-29-2023 End: 59-63-3725vwkxhudzfbLbeduesk Ball Other [employer] Other Start: 07-57-6087Xygdmocgw encounterBenjamin BallFPG [facility] ClinicStart: 09-01-2023 End: 27-31-6827clqbfglonoDE Yas Linda Work Phone: [facility] Work Phone: Start: 09-01-2023 End: 99-14-8677Yrkxvytuyc RecurringDO Yas Linda Work Phone: [facility] Work Phone: Start: 08-27-2023 End: 44-07-1004pfeyexahwaGzbryokz Ball Other [employer] Other Start: 79-31-1276Emwezoosf encounterBenjamin BallFPG [facility] ClinicStart: 08-22-2023 End: 21-87-4765royodpigmsHfjvbkqq Ball Other [employer] Other Start: 05-26-2750Rstrgc outpatient visit 25 minutes Yas BallFPG [facility] ClinicStart: 07-03-2023 End: 34-46-3618ztiotnkdpdGxbzejlg Ball Other noSMS [employer] Other Start: 57-13-6929Kkwggpbsu encounterBenjamin BallFPG [facility] ClinicStart: 07-01-2023 End: 97-48-4376cjoymjnrlbJegoecdz Ball Other noSMS [employer] Other Start: 96-04-3086Mzpotdmua encounterBenjamin BallFPG [facility] ClinicStart: 06-22-2023 End: 42-38-1927eiiawrczidUqiiogvw Ball Other noSMS [employer] Other Start: 68-74-0006Amkyqjijv encounterBenjamin BallFPG [facility] ClinicStart: 06-12-2023 End: 09-17-3995tuoqdxocxcRutalfcw Ball Other noSMS [employer] Other Start: 41-36-4348Osvtnyqir encounterBenjamin BallFPG [facility] ClinicStart: 04-26-2023 End: 99-69-1367cyghpkdwhhNvcnlsti Ball Other noSMS [employer] Other Start: 37-66-9261Npcnlhizz encounterBenjamin BallFPG [facility] ClinicStart: 04-20-2023 End: 49-18-1718nnkpekifcgJvngrpqg Ball Other noSMS [employer] Other Start: 31-83-7598Zpldpm outpatient visit 25 minutes Yas BallFPG [facility] ClinicStart: 03-14-2023 End: 64-30-5764paaahxcrzzAkugewfb Ball Other noSMS [employer] Other Start: 28-77-1101Yyuvpmdgy encounterBenjamin BallFPG [facility] ClinicStart: 02-28-2023 End: 74-31-1213ctrryqyvryJU DOCTOR MISCFacility:U5Tekbp: 26-91-0708Uklwxrbob encounterBenjamin BallFPG [facility] ClinicStart: 02-15-2023 End: 06-24-7854uldqoqkzrgAZ DOCTOR MISCNorth [employer] Other Start: 02-14-2023 End: 64-45-2359lzjvtlnxacMlgrisrh Ball Other noSMS [employer] Other Start: 64-05-3799Vbyhggpdo encounterBenjamin BallFPG [facility] ClinicStart: 01-11-2023 End: 59-32-8446eoyilossjgXgvuylkf Ball Other noSMS [employer] Other Start: 03-72-1046Ubdmkl outpatient visit 15 minutes Yas [facility] ClinicStart: 01-02-2023 End: 94-09-5448zjmqfpylpaUWDPQBassam SYED MDFacility:I4Xrwfo: 12-15-2022 End: 34-66-4132xxegtseyagUlukvnsw Ball Other noSMS [employer] Other Start: 71-82-7350Bznpopq encounter procedureYas Linda Medical ClinicStart: 11-16-2022 End: 40-24-3292nfnhomueiaEN YAS LINDAFacility:S9Mxtcq: 11-14-2022 End: 48-07-7162oxhyfcxdgzIdnpvfad Ball Other [place] [employer] Other Start: 44-43-0563Juavidvsf encounterBecyril Linda Medical ClinicStart: 10-03-2022 End: 46-76-8911mdrnofcvwhNG YAS MADDIFacility:R1Qwfbf: 09-22-2022 End: 36-43-4877iodfpzhmxqQU DOCTOR MISCFacility:U3Hhcem: 09-09-2022 End: 76-29-3063spfsckncpyUF DOCTOR MISCFacility:X1Sfdgx: 09-02-2022 End: 49-64-4780nwhlnnfllaCU Yas Linda Work Phone: [facility] Work Phone: Start: 09-02-2022 End: 98-09-7562Kraqbvanyo RecurringDO Yas Lnida Work Phone: [facility]-Cancer CenterStart: 08-30-2022 End: 22-20-9749dndzmrxpvrLW YAS MADDIFacility:O2Uwbsz: 07-21-2022 End: 07-71-7503Xmrnayygm to same day surgery centerDO Yas Linda Work Phone: [facility]-Digestive HealthStart: 07-21-2022 End: 97-41-7982fwrvhuhowlGL Yas Linda Work Phone: [facility] Work Phone: Start: 07-20-2022 End: 31-78-8640bacsnujgpiFT YAS BALLFacility:D0Gobpy: 07-19-2022 End: 02-56-1113xcanjpylceAC Yas Linda Work Phone: [facility] Work Phone: Start: 07-19-2022 End: 72-29-3601Opafyti encounter procedureDO Yas Linda Work Phone: [facility] Qsm-Ytc-Hedwdbcm Testing Start: 09-20-7233zgaxqcjondJJ ADAN LARAUKARBELFacility:O2Kuqsg: 32-43-6361Ofewb health examinationBenalbert Linda Other [facility] [employer] Other Start: 38-99-3496Vzanrnfomu RecurringDO Yas Linda Work Phone: [facility]-Cancer CenterStart: 06-03-2022 End: 95-37-0760Zuxznensml RecurringDO Yas Linda Work Phone: [facility]-Cancer CenterStart: 05-31-2022 End: 30-43-4523Tomsoqo encounter procedureDO Yas Linda Work Phone: [facility] CampusStart: 05-12-2022 End: 35-76-1003vvvxajcppdWCQDF L FLICKINGER MDFacility:R8Hakhq: 05-10-2022 End: 94-90-7420gbfgznbkwiOQAZWRD BOESFacility:R3Nsvtp: 04-26-2022 End: 73-21-5331fwzyzzfpcxYG DOCTOR MISCFacility:Y6Ctudn: 04-11-2022 End: 43-68-7805ckletsgbzlPO YAS BALLFacility:R8Rtvxg: 04-08-2022 End: 74-79-8364grbdofphrxLC YAS LINDAFacility:S6Rbdui: 03-30-2022 End: 15-32-5342Zbbymynben and management of inpatientASIF MAHMOODFacility:[facility] Start: 03-25-2022 End: 43-56-3431moprvcgjduODJBPTB TUCKERFacility:D3Shxkv: 31-89-3389bwzmylepgs ENRRIQUE TUCKERFacility:K6Lsxvl: 03-06-2022 End: 00-53-2286Zhglyqqabc and management of inpatientDR RUPINDER GRIGSBY . Facility:B9Tqzrn: 03-04-2022 End: 61-74-9144tqsexopykhSW YAS LINDAFacility:B4Zslzf: 08-17-2021 End: 32-35-6880Pqv-procedure evaluation checkBenalbert Linda Other [employer] Other Start: 95-58-2036ZrygntifhrxCZ Yas Linda Work Phone: [facility] Procedures DateProcedureProcedure DetailPerforming ClinicianStart: 05-30-2025 Carcinoembryonic antigen Gerard Keller DO Work Phone: Comment on above:Serial tumor marker results determined by assays using different manufacturers or methods may not be comparable. [facility] city superintendent of schools and method: LASHELL UNICEL DXI, 2 SITE IMMUNOENZYMATIC SANDWICH ASSAY. Start: 72-42-9442Hxjlqlaohzjthlwe antigen ceaChivo Keller DO Work Phone: Comment on above:Result Comment: Serial tumor marker results determined by assays using different manufacturers or methods may not be comparable. [facility] city superintendent of schools and method: [employer] UNICEL DXI, 2 SITE IMMUNOENZYMATIC ?SANDWICH? ASSAY. PERFORMED BY: [place] [address] PATHOLOGIST VICE PRESIDENT OF MARKETING LOGAN RUIZ M.D.Performed By: #### RENAL, CBC #### [place] [address] USAStart: 83-53-5212Xjamwtcb blood count with white cell differential, automatedChivo Keller DO Work Phone: Start: 29-04-4482KMXRPALLDSYYC (EPO), SERUMChivo Keller DO Work Phone: Start: 92-72-7689Qnedpjvbhmk of carcinoembryonic antigen in body fluid specimenBenalbert Linda DO Work Phone: Comment on above:Serial tumor marker results determined by assays using different manufacturers or methods may not be comparable.[facility] city superintendent of schools and method:LASHELL UNICEL DXI, 2 SITE IMMUNOENZYMATICSANDWICH ASSAY.Start: 80-92-0627Bcskmvpq blood count with white cell differential, automatedChivo Keller DO Work Phone: Start: 06-59-7473Iaiws x-ray of pelvis and lower extremityBenalbert Linda DO Work Phone: Start: 59-10-4543Mexlmqxeaufhzexa antigen ceaChivo Keller DO Work Phone: Comment on above:Serial tumor marker results determined by assays using different manufacturers or methods may not be comparable. [facility] city superintendent of schools and method: LASHELL UNICEL DXI, 2 SITE IMMUNOENZYMATIC SANDWICH ASSAY. Start: 20-26-3897Jmkndmyuidmiycej antigen ceaChivo Keller DO Work Phone: Comment on above:Result Comment: Serial tumor marker results determined by assays using different manufacturers or methods may not be comparable. [facility] city superintendent of schools and method: LASHELL UNICEL DXI, 2 SITE IMMUNOENZYMATIC ?SANDWICH? ASSAY. PERFORMED BY: [place] [id number] PATHOLOGIST VICE PRESIDENT OF MARKETING KRITSEL LU M.D.Performed By: #### RENAL, CBC #### [place] [address] USAStart: 05-73-3439RMAVEQIOWAHYG (EPO), SERUMChivo Keller DO Work Phone: Start: 87-98-2882Pymqhykeung of carcinoembryonic antigen in body fluid specimenBenalbert Linda DO Work Phone: Comment on above:Serial tumor marker results determined by assays using different manufacturers or methods may not be comparable.[facility] city superintendent of schools and method:LASHELL UNICEL DXI, 2 SITE IMMUNOENZYMATICSANDWICH ASSAY.Start: 06-36-0137YH of abdomen and pelvis without contrastBenjamin Ball DO Work Phone: Start: 46-44-2790KZ of chest without contrastBenjamin Ball DO Work Phone: Start: 28-82-9695Yqhdj X-ray of right hipBenjamin Ball DO Work Phone: Start: 67-57-9378Sdnnimgyu for occult blood in feces Yas Ball DO Work Phone: Start: 23-09-5214Ookatvms screenBenjamin BallComment on above:Order Comment: Transfuse now? Y Number of units to transfuse now? 2 Transfuse now? Y Number of units to transfuse now? 1 Transfuse now? Y Number of units to transfuse now? 1 Transfuse now? Y Number of units to transfuse now? 1Result Comment: PERFORMED BY: [facility] [address] [place] [address] PATHOLOGIST VICE PRESIDENT OF MARKETING KRISTEL LU M.D.Start: 60-25-1290Ojgfsc scan of lower limb veins Yas Ball DO Work Phone: Start: 22-11-7893Kuzqx X-ray of right hipBenjamin Ball DO Work Phone: Start: 63-45-0613Mruvu chest X-rayBenjamin Ball DO Work Phone: Start: 84-30-3687A-ray of right ankleBenjamin Ball DO Work Phone: Start: 10-10-4082W-ray of right knee, two views Yas Ball DO Work Phone: Start: 00-72-3987Lriwa X-ray of right hipBenjamin Ball DO Work Phone: Start: 32-74-3038Otxzahm hip replacement with bipolar prosthesisBenjamin Ball DO Work Phone: Start: 12-99-6549Yuuph chest X-rayBenjamin Ball DO Work Phone: Start: 64-94-2430Vytekqqc screenBenjamin BallComment on above:Order Comment: expiring BB band Transfuse now? Y Number of units to transfuse now? 1 Transfuse now? Y Number of units to transfuse now? 1Result Comment: PERFORMED BY: [facility] [address] [place] [address] PATHOLOGIST VICE PRESIDENT OF MARKETING KRISTEL LU M.D.Start: 05-37-0041Zstnw immunofixationBenjamin Ball DO Work Phone: Comment on above:No monoclonality detected.Start: 25-16-9992NX of abdomen and pelvis without contrastDO Yas Ball Work Phone: Start: 47-59-8043XI of chest without contrastDO Yas Ball Work Phone: Start: 62-42-8020YI of abdomen and pelvis without contrastDO Yas Ball Work Phone: Start: 59-18-9024BK of chest without contrastDO Yas Ball Work Phone: start: 01-84-1520KU of abdomen and pelvis without contrastDO Yas Ball Work Phone: Start: 22-03-4699CC of chest without contrastDO Yas Ball Work Phone: Start: 10-34-0491QCL screeningMELISSA BOESComment on above:Performed By: #### FT4, PSASC #### [facility] [address] [place] [address] Dr. Benito SchwartzStart: 90-53-0032DM of abdomen and pelvis without contrastDO Yas Ball Work Phone: Start: 22-74-9198YF of chest without contrastDO Yas Ball Work Phone: Start: 90-87-6337AgzkgcspehfHO Yas Ball Work Phone: Start: 06-68-1696MD of abdomen and pelvis without contrastDO Yas Linda Work Phone: Start: 16-26-9324AA of chest without contrastDO Yas Linda Work Phone: Start: 56-26-0923Gsshekuz tomography of abdomen and pelvis with contrastDO Yas Linda Work Phone: Start: 03-36-9684GC of thorax with contrastDO Yas Linda Work Phone: Start: 66-09-0558Hfzvksqibk test result abnormal Yas Linda Other Start: 78-07-7846Emguiaupe for malignant neoplasm of colonBecyril Linda Other Start: 01-69-8980Lvc-surgery evaluationYas Linda Other Start: 69-46-0469Lpqlihfmhpnl cardiovascular examinationBecyril Linda Other Start: 45-99-2315Flbebsrsv for malignant neoplasm of prostateYas Linda Other Depression screeningYas Linda Other SARS Antigen (LFIA)DO Yas Linda Work Phone: Screening for malignant neoplasm of prostateYas Linda Other Plan of Treatment DateCare ActivityDetailAuthorStart: 12-01-2025 End: 75-62-9163Aolojmr encounter axbgyqkbo37/16/2026 9:00 AM EST Procedure Visit [facility] [address] [place] [address] Emely Batista DPM [address] [place], [place] [id number] [facility] Gonzalez PodiatryStart: 67-18-0842GTHPA-19 Vaccine ( season)COVID-19 Vaccine ( season)[facility] HealthcareStart: 09-17-2025 End: 33-10-5186Gmzsznx encounter zgdnnexyk22/03/2025 9:30 AM EST Office Visit [facility] [address] [place] [address] MXZM [place] AudiologyStart: 08-27-2025 End: 50-51-9344Cagmnof encounter procedureNOMS [place] PodiatryComment on above: ArrivedStart: 75-09-3613Vhffkta ScreeningTolawrence+memorial [facility] ScreeningCone Health Women's Hospitaltart: 07-07-2025 End: 31-02-5666Xohnpgj encounter jpuhksldd97/22/2025 10:30 AM EDT Office Visit [facility] [place] [address] [place] [address] Sidra Deleon DO [address] [place] [address] UMA KALANItart: 21-47-6993Tazocmolu vaccinationCommunity Regional Medical Center System Start: 05-26-2025 End: 55-14-6024omjqlzavnvTLBM CI PTStart: 05-26-2025 End: 21-50-8090Lhvlfii encounter procedureNOMS FH PODIATRYComment on above: ArrivedStart: 05-23-2025 End: 31-28-3829ikxrvdcvrnVEFU CI PTComment on above:ArrivedStart: 05-21-2025 End: 22-47-8029yygulkvrpvFCKT CI PTComment on above:ArrivedStart: 05-19-2025 End: 85-92-0220syvensdknuVQGP CI PTComment on above:ArrivedStart: 05-16-2025 End: 43-99-6726aiettefoneEPUR CI PTComment on above:ArrivedStart: 05-14-2025 End: 93-72-7963gwsktqyqhsCCHN CI PTComment on above:Greater trochanteric bursitis of left hip (Primary Dx); History of total hip arthroplasty, right; Left hip painStart: 05-12-2025 End: 77-21-1350fmlatcjtgySCNY CI PTComment on above:ArrivedStart: 05-09-2025 End: 58-52-6578qulvnfzuxc01/25/2025 2:30 PM EDT Treatment [facility] PT [address] [place] [address] Kellorena, Fermin, ELECTRIC CLOCK MECHANIC NOMS CI PTStart: 05-09-2025 End: 97-44-9310funtscwyze24/25/2025 12:30 PM EDT Treatment [facility] CI PT [address] [place] [address] Princess, Fermin, ELECTRIC CLOCK MECHANIC ArrivedNOMS CI PTComment on above:ArrivedStart: 05-09-2025 End: 55-77-9603kaondycrpa46/25/2025 10:30 AM EDT Treatment [facility] CI PT [address] [place] [address] Princess, Fermin, ELECTRIC CLOCK MECHANIC [facility] CI PTStart: 05-07-2025 End: 94-04-7929ykopwzepreNPEZ CI PTComment on above:ArrivedStart: 05-05-2025 End: 62-26-8764cxuodyxsgkGHCL CI PTComment on above:ArrivedStart: 2025 End: 37-08-6701xhtncqfxjfTGPR CI PTComment on above:ArrivedStart: 04-30-2025 End: 61-70-5171tvawyxydadECHC CI PTComment on above:Greater trochanteric bursitis of left hip (Primary Dx); History of total hip arthroplasty, right; Left hip painStart: 04-28-2025 End: 97-86-3483bddsyhfnbsGLSA CI PTComment on above:ArrivedStart: 04-25-2025 End: 45-90-9140nygadtucebJIQN CI PTComment on above:ArrivedStart: 04-23-2025 End: 68-68-4051jlmdjhzqlh79/09/2025 12:30 PM EDT Treatment [facility] [address] [place] [address] Nikkie Sánchezissa, ELECTRIC CLOCK MECHANIC [facility] CI PTStart: 04-21-2025 End: 85-54-2895frdwmkejbnPEVG CI PTComment on above:ArrivedStart: 04-17-2025 End: 09-14-9916klyuvifwlyIXDQ CI PTComment on above:Greater trochanteric bursitis of left hip (Primary Dx); History of total hip arthroplasty, right; Left hip painStart: 04-15-2025 End: 59-75-4178gldicddfvr79/01/2025 8:30 AM EDT Treatment [facility] [address] [facility] [address] [place] [address] Kenny Clay, PT [address] [facility] [address] [place] [address] NOMS CI PTStart: 04-14-2025 End: 12-78-8004sbaxroxnwiXLDI CI PTComment on above:ArrivedStart: 04-11-2025 End: 60-25-0123nuaeyxhhvhXJIX CI PTComment on above:Greater trochanteric bursitis of left hip (Primary Dx); History of total hip arthroplasty, right; Left hip painStart: 04-09-2025 End: 15-05-1026bvqvrstzahBRTB CI PTComment on above:ArrivedStart: 04-07-2025 End: 36-47-4353fpllklxmntWQJD CI PTComment on above:Greater trochanteric bursitis of left hip (Primary Dx); History of total hip arthroplasty, right; Left hip painStart: 04-04-2025 End: 17-06-4500afocbdoqgdZWVG CI PTComment on above:Greater trochanteric bursitis of left hip (Primary Dx); History of total hip arthroplasty, right; Left hip painStart: 04-02-2025 End: 08-98-7035ysjqjipqmeNUYZ CI PTComment on above:ArrivedStart: 03-31-2025 End: 80-40-6587hsfofnuzyjCGKM CI PTComment on above:ArrivedStart: 03-28-2025 End: 91-13-6884rwgnzyhoetHMQK CI PTComment on above:ArrivedStart: 03-26-2025 End: 31-22-6618tyhvcnpdylYHET CI PTComment on above:ArrivedStart: 03-24-2025 End: 39-25-8096orzphczliaBJSV CI PTComment on above:Greater trochanteric bursitis of left hip (Primary Dx); History of total hip arthroplasty, right; Left hip painStart: 03-24-2025 End: 85-89-8560glzhekmlfb35/09/2025 11:30 AM EDT Treatment [facility] [address] [facility] [address] [place] [address] Kilo Andrews PTA NOMS CI PTStart: 03-21-2025 End: 57-89-9205spvasouuhwZWCD CI PTComment on above:Greater trochanteric bursitis of left hip (Primary Dx); History of total hip arthroplasty, right; Left hip painStart: 03-19-2025 End: 27-73-9361avkxrgtozl60/04/2025 3:00 PM EDT Evaluation [facility] [address] [place] [address] Kenny Clay, PT [address] [place] [address] ArrivedNOMS CI PTComment on above:ArrivedStart: 03-05-2025 End: 03-29-1058Fbvefywn Udzjxfn4503/05/2025 1:00 PM EDT Clinical Support [facility] CI AUD [address] [facility] [address] [place] [address] Marilin Bhardwaj, [facility] [address] [place] [address] NOMS CI AUDStart: 34-85-3884Gtvza x-ray of pelvis and lower extremitySelect Medical Specialty Hospital [facility] Northtart: 74-84-8490JI Pelvis and Hip - bilateral ViewsSelect Medical Specialty Hospital - Cincinnati Northtart: 02-21-2025 End: 10-86-1367Aadhbmp encounter zwmyimmvx54/09/2025 10:45 AM EDT Office Visit [facility] [address] [place] [address] Emely Batista, DPCanelo [address] [place] [address] ArrivedNOMS PODIATRYComment on above:ArrivedStart: 21-55-0444Cufmi BMI ScreeningAdult BMI ScreeningProMetrohealth Cleveland Heights Medical Center SystemStart: 02-06-2025 End: 49-74-1407Nhlew metabolic 2000 panel - Serum or PlasmaBasic Metabolic Panel Lab Routine Stage 4 chronic kidney disease ([facility]) Expected: 02/06/2025 (Giovanni roximate), Expires: 08/08/2025[facility] Work Phone: Comment on above:Expected: 02/06/2025 (Approximate), Expires: 08/08/2025Start: 02-06-2025 End: 51-70-8712KDD panel - Blood by Automated countCBC without diff Lab Routine Stage 4 chronic kidney disease ([facility]) Expected: 02/06/2025 (Approximate), Expires: 08/08/2025ProMetrohealth Cleveland Heights Medical Center SystemComment on above:Expected: 02/06/2025 (Approximate), Expires: 08/08/2025Start: 02-06-2025 End: 19-71-2232Lecfpkkwg [Mass/volume] in Serum or PlasmaMagnesium Lab Routine Stage 4 chronic kidney disease ([facility]) Expected: 02/06/2025 (Approximate), E xpires: 08/08/2025[facility] SystemComment on above:Expected: 02/06/2025 (Approximate), Expires: 08/08/2025Start: 02-06-2025 End: 68-07-4904Nvxesvtiyxu Hormone, intactParathyroid Hormone, intact Lab Routine Stage 4 chronic kidney disease ([facility]) Expected: 02/06/2025 (Approximate), Expires: 08/08/2025ProMetrohealth [facility] Heights Medical Center SystemComment on above: Expected: 02/06/2025 (Approximate), Expires: 08/08/2025Start: 02-06-2025 End: 71-10-4096Ernwtdyfm [Mass/volume] in Serum or PlasmaPhosphorus Lab Routine Stage 4 chronic kidney disease ([facility]) Expected: 02/06/2025 (Approximate), Expires: 08/08/2025ProFayette Medical Center Health SystemComment on above:Expected: 02/06/2025 (Approximate), Expires: 08/08/2025Start: 02-06-2025 End: 76-09-4935Zwnjull creat ratioProtein creat ratio Lab Routine Stage 4 chronic kidney disease ([facility]) Expected: 02/06/2025 (Approximate), Expires: 08/08/2025ProFayette Medical Center Health SystemComment on above:Expected: 02/06/2025 (Approximate), Expires: 08/08/2025Start: 93-53-5422Lkygu X-ray of right hip [facility]art: 76-16-9137PL Hip - right 2 Views [facility]htart: 96-58-2676GheaeehfoSelect Medical Specialty Hospital - [facility] Northtart: 70-03-7546Yxrcpati to gastroenterologistSelect Medical Specialty Hospital [facility] Northtart: 39-38-8173Hhcasiuh to nephrologistSumma Health [facility] Start: 05-71-2797Mivubnbn admissionSelect Medical Specialty Hospital - [facility] Northtart: 67-48-9792Ffxzofjd to clinical allergistSelect Medical Specialty Hospital [facility] Northtart: 30-67-8463ClyncdgvqSelect Medical Specialty Hospital - [facility] Northtart: 06-49-3180Ilsomtzy to nephrologistSelect Medical Specialty Hospital [facility] Northtart: 81-80-2883Mdrmjxfp to rehabilitation physicianSelect Medical Specialty Hospital - [facility] Northtart: 12-22-2024 Referral to Social ServicesSelect Medical Specialty Hospital [facility] Northtart: 12-22-2024 Hospital admissionSelect Medical Specialty Hospital [facility] Northtart: 17-67-7493Cztcxvkbriyq [facility]htart: 37-65-5474SfsjsmrzlSelect Medical Specialty Hospital - [facility] Northtart: 12-04-2024 End: 42-33-1957Zaoimwld Avpsift0312/04/2024 1:00 PM EST Clinical Support [facility] [address] [place] [address] Marilin Bhardwaj, [facility] [address] [place] [address] NOMS CI AUDStart: 53-72-1516Vspfr BMI ScreeningAdult BMI ScreeningProFostoria City Hospitaltart: 08-21-2024 End: 65-11-3196Cikmelgq SupportNONC CI AUDComment on above:ArrivedStart: 08-15-2024 End: 97-07-8740Ziebxpj creat ratioProtein creat ratio Lab Routine Stage 4 chronic kidney disease ([facility]) Expected: 08/15/2024 (Approximate), Expires: 08/08/2025ProMetrohealth [facility] SystemComment on above:Expected: 08/15/2024 (Approximate), Expires: 08/08/2025Start: 08-08-2024 End: 78-31-4485Djxufzk encounter uwvgbomql29/24/2024 10:30 AM EDT Office Visit [facility] [address] [place] [address] Avery Syed MD Katheryn [facility] [address] [place] [address] [facility]: 07-09-2024 End: 66-36-8296Iilthzj encounter cwdmxvqim38/24/2024 10:30 AM EDT Office Visit [facility] [address] [place] [address] Sidra Deleon, [address] [place] [address] ArrivedCAPE REGIONAL [facility] STATE ROUTEComment on above: ArrivedStart: 50-24-9733Qmwwawzay vaccinationNONC HealthcareStart: 06-02-2024 End: 43-93-9354Qavyv metabolic 2000 panel - Serum or PlasmaBasic Metabolic Panel Lab Routine Stage 4 chronic kidney disease ([facility]) Expected: 06/02/2024, Exp ires: 01/31/2025[facility] Work Phone: Comment on above:Expected: 06/02/2024, Expires: 01/31/2025Start: 06-02-2024 End: 64-18-0773PXV panel - Blood by Automated countCBC without diff Lab Routine Stage 4 chronic kidney disease ([facility]) Expected: 06/02/2024, Expires: 01/31/2025ProFayette Medical Center Health SystemComment on above:Expected: 06/02/2024, Expires: 01/31/2025Start: 06-02-2024 End: 47-99-7971Ejdxmgpsm [Mass/volume] in Serum or PlasmaMagnesium Lab Routine Stage 4 chronic kidney disease ([facility]) Expected: 06/02/2024, Expires: 2024ProMetrohealth [facility] SystemComment on above:Expected: 06/02/2024, Expires: 01/31/2025Start: 06-02-2024 End: 52-66-1256Ilgelqauwml Hormone, intactParathyroid Hormone, intact Lab Routine Stage 4 chronic kidney disease ([facility]) Expected: 06/02/2024, Expires: 01/31/2025ProMetrohealth [facility] SystemComment on above:Expected: 06/02/2024, Expires: 01/31/2025Start: 06-02-2024 End: 74-44-9974Qapbpxqht [Mass/volume] in Serum or PlasmaPhosphorus Lab Routine Stage 4 chronic kidney disease ([facility]) Expected: 06/02/2024, Expires: 01/31ProMetro[facility] SystemComment on above:Expected: 06/02/2024, Expires: 01/31/2025Start: 06-02-2024 End: 31-34-7459Odfpgja creat ratioProtein creat ratio Lab Routine Stage 4 chronic kidney disease ([facility]) Expected: 06/02/2024, Expires: 01/31/2025 [facility] SystemComment on above:Expected: 06/02/2024, Expires: 01/31/2025Start: 02-08-2024 End: 70-28-0377Jllinwp encounter bfgbfeicb20/ 10:30 AM EDT Office Visit [facility] [address] [place] [address] Avery Syed MD [address] [facility] [address] [place] [address] [facility] Centertart: 73-00-4556CPCBK-19 Vaccine ( season)COVID-19 Vaccine ( season)[facility] Start: 98-81-8788IsrtcfftrMadison Health CenterStart: 95-00-0817Lendqyhlin RecurringColon cancerUniversity Hospitals Parma Medical Center-Cancer CenterStart: 42-74-4485WnhvrcpsrMadison Health CenterStart: 41-13-1796PmilnqqccMadison Health CenterStart: 28-22-0538VJ abdomen pelvis w conCT abdomen pelvis w [facility] CenterStart: 40-20-6437LY chest w conCT chest w [facility] CenterStart: 96-91-8775UprwvhsnyMadison Health CenterStart: 29-56-6048Vahojdwfhpkv Vaccine: 65+ Years (2 of 2 - PPSV23 or PCV20)Pneumococcal Vaccine: 65+ Years (2 of 2 - PPSV23 or PCV20)[facility] Start: 67-06-1375Uckvbtukqynb Vaccine: 65+ Years (2 of 2 - PPSV23)Pneumococcal Vaccine: 65+ Years (2 of 2 - PPSV23)[facility] HealthcareStart: 98-83-1691Kcpn Risk ScreeningFall Risk ScreeningProMetrohealth [facility] SystemStart: 1992 Administration of varicella zoster vaccineZoster (Shingles) Vaccine (1 of 2) [facility] SystemStart: 12-63-5188XNyR,Tdap and Td Vaccines (1 - Tdap) DTaP,Tdap and Td Vaccines (1 - Tdap)[facility] SystemStart: 1954 Depression ScreeningDepression ScreeningProMetrohealth [facility] SystemStart: 1954 Tobacco ScreeningTobacco ScreeningProMetrohealth [facility] SystemStart: 1942 Medicare Annual Wellness VisitMedicare Annual Wellness VisitKettering Health – Soin Medical CenterCarcinoembryonic Ag [Mass/volume] in Serum or [facility] Work Phone: Carcinoembryonic Ag [Mass/volume] in Serum or Plasma [facility] CampusCarcinoembryonic Ag [Mass/volume] in Serum or [facility] HospitalComprehensive metabolic 1999 panel - Serum or [facility] Work Phone: Comprehensive metabolic 1999 panel - Serum or Plasma [facility] CampusComprehensive metabolic 1999 panel - Serum or [facility] HospitalComprehensive metabolic 1999 panel - Serum or [facility] HospitalComprehensive metabolic 1999 panel - Serum or [facility] HospitalComprehensive metabolic 1999 panel - Serum or [facility] HospitalComprehensive metabolic 1999 panel - Serum or PlasmaComprehensive metabolic panel Lab STAT 02/24/2025 9:46 AM BirdbackNativeXNC [employer] Work Phone: Comprehensive metabolic 1999 panel - Serum or Plasma [facility] CampusComprehensive metabolic 1999 panel - Serum or PlasmaComprehensive metabolic panel Lab Routine 05/30/2025 10:59 AM 3NodNC [employer] Work Phone: Comprehensive metabolic 1999 panel - Serum or Plasma [facility] CampusCT Abdomen and Pelvis W contrast [facility] Work Phone: CT Abdomen and Pelvis W contrast [facility]CT [facility] and Pelvis W contrast [facility] HospitalCT Abdomen and Pelvis W contrast [facility] HospitalCT Abdomen and Pelvis W contrast [facility] HospitalCT Abdomen and Pelvis WO [facility] Work Phone: CT Abdomen [facility] and [facility] Chest W contrast [facility] Work Phone: CT Chest W contrast [facility] HospitalCT Chest W contrast [facility] HospitalCT Chest W contrast [facility] HospitalCT Chest W contrast [facility] HospitalCT Chest WO [facility] Work Phone: CT Chest [facility] CT Chest WO [facility] HospitalErythropoietin (EPO) [Units/volume] in Serum or [facility] HospitalErythropoietin (EPO) [Units/volume] in Serum or [facility] Erythropoietin (EPO) [Units/volume] in Serum or [facility] HospitalFerritin [Mass/volume] in Serum or [facility] HospitalImmunofixation for UrineSumma Health Akron CampusIron and Iron binding capacity panel - Serum or PlasmaIron and TIBC Lab STAT 02/24/2025 9:46 AM EDTNONC HealthcareIron and Iron binding capacity panel - Serum or PlasmaIron and TIBC Lab Routine 05/30/2025 10:59 AM [facility] HealthcarePatient Education [facility] Work Phone: Patient referralMadison Health Ctr Work Phone: Renal function 1999 panel - Serum or [facility] HospitalRenal function 1999 panel - Serum or [facility] HospitalRenal function 1999 panel - Serum or [facility] HospitalRenal function 1999 panel - Serum or [facility] End: 58-33-0691AxvbfjzfvoOpqjpqugiv Lab Routine Stage 4 chronic kidney disease ([facility]) 1 Occurrences starting 02/08/2024 until 01/31/2025ProMetro[facility] SystemComment on above:1 Occurrences starting 02/08/2024 until 01/31/2025 End: 11-96-2844WyloxmbbppSesocasryr Lab Routine Stage 4 chronic kidney disease (CMS-HCC) 1 Occurrences starting 08/08/2024 until 08/08/2025ProMetrohealth [facility] SystemComment on above:1 Occurrences starting 08/08/2024 until 08/08/2025 [facility] CenterFirelands [facility] Medical CenterFirelands Regional Medical CenterFirelands Regional Medical CenterFirelands Regional Medical [facility] Immunizations Immunization DateImmunizationNotesCare YkifwasnDbcnkjyf40-86-9789bzbawduyo, high dose seasonal, preservative-freeBenjamin Ball DO Work Phone: [facility]10-07-2024COVID-19 (PFIZER) 12Y and olderBenjamin Ball DO Work Phone: [facility]09-30-2024influenza, high dose seasonal, preservative-freeBenjamin Ball DO Work Phone: [facility]09-30-2024influenza virus vaccine, unspecified formulationKeralty Hospital MiamiA Work Phone: [facility] [id number]-47 (PFIZER) 12Y and olderBenjamin Ball DO Work Phone: [facility]09-26-2023Influenza vaccine, quadrivalent, adjuvantedBenjamin Ball DO Work Phone: [facility]09-26-2023influenza virus vaccine, unspecified formulationRiqudaya [facility] 43-34-6636NWGVQ- Pfizer (bivalent)Yas Linda Other [facility]09-25-2022COVID-19 Pfizer (Pediatric)Yas Linda Other [facility]09-19-2022Influenza vaccine, quadrivalent, adjuvantedBenjamin Ball DO Work Phone: [facility]09-19-2022influenza virus vaccine, split virus (incl. purified surface antigen)Yas Linda Other [employer] Other [id number] virus vaccine, unspecified formulationDO Yas Linda Work Phone: [facility]09-19-2022influenza, high dose seasonal, preservative-freeBenjagrady Linda Other [employer] Other [id number] PfizerBenjamin Maddi Other [facility]04-25-2022COVID-19 Vaccine Pfizer - Documentation Purposes OnlyBenalbert Linda Other [facility]10-13-2021influenza virus vaccine, split virus (incl. purified surface antigen)Yas Linda Other [employer] Other [id number] virus vaccine, unspecified formulationDO Yas Linda Work Phone: [facility]10-13-2021Seasonal trivalent influenza vaccine, adjuvanted, preservative freeBenjagrady Linda DO Work Phone: [phone]09-30-2021COVID-19 mRNA, Comirnaty (Pfizer)DO Yas Linda Work Phone: [phone]02-18-2021COVID-19 mRNA, Comirnaty (Pfizer)DO Yas Linda Work Phone: [phone]01-28-2021COVID-19 mRNA, Comirnaty (Pfizer)DO Yas Linda Work Phone: [phone] [place], [place] [address]-15-2020influenza virus vaccine, split virus (incl. purified surface antigen)Yas Linda Other [employer] Other [id number] virus vaccine, unspecified formulationDO Yas Linda Work Phone: [facility]10-04-2019influenza virus vaccine, split virus (incl. purified surface antigen)Yas Linda Other [employer] Other [id number] virus vaccine, unspecified formulationDO Yas Linda Work Phone: [phone]10-01-2019influenza virus vaccine, unspecified formulationBenjamin Ball DO Work Phone: [facility]10-02-2018influenza virus vaccine, split virus (incl. purified surface antigen)Yas Linda Other [employer] Other [id number] virus vaccine, unspecified formulationDO Yas Linda Work Phone: [phone]10-02-2018Seasonal trivalent influenza vaccine, adjuvanted, preservative freeBenjamin Ball DO Work Phone: [phone] [place], [place] 4536003-12-2018diphtheria, tetanus toxoids and acellular pertussis vaccine, unspecified formulation Yas Linda Other [facility]10-09-2017influenza virus vaccine, split virus (incl. purified surface antigen)Yas Linda Other [employer] Other [id number] virus vaccine, unspecified formulationDO Yas Linda Work Phone: [facility]10-09-2017Seasonal trivalent influenza vaccine, adjuvanted, preservative freeBenjamin Ball DO Work Phone: [facility]09-27-2016influenza virus vaccine, split virus (incl. purified surface antigen)Yas Linda Other [employer] Other [id number] virus vaccine, unspecified formulationDO Yas Linda Work Phone: [facility]09-27-2016influenza, high dose seasonal, preservative-freeBenjamin Ball DO Work Phone: [facility]08-11-2016 pneumococcal Conjugate, unspecified formulation; Translations: [Need for prophylactic vaccination against Streptococcus pneumoniae (pneumococcus)] Yas Linda Other [employer] Other [id number] conjugate vaccine, 13 valent Yas Linda Other [facility]09-23-2015influenza virus vaccine, split virus (incl. purified surface antigen)Yas Linda Other [employer] Other [id number] virus vaccine, unspecified formulationDO Yas Linda Work Phone: [facility]10-18-2013tetanus and diphtheria toxoids, adsorbed, preservative free, for adult use (5 Lf of tetanus toxoid and 2 Lf of diphtheria toxoid)Yas Linda Other [facility]10-18-2013 pneumococcal polysaccharide vaccine, 23 valentBenalbert Linda Other [facility]10-01-2013 pneumococcal conjugate vaccine, 13 valentNicole Pancho DO Work Phone: [facility]Gql[facility]kclzw83-09-8762bomzgty and diphtheria toxoids, adsorbed, preservative free, for adult use (5 Lf of tetanus toxoid and 2 Lf of diphtheria toxoid)Yas Linda Other [facility]12-14-2009novel uadlokqro-H5P3-89, preservative-free, injectableBenjamin Maddi DO Work Phone: [facility] Payers DatePayer CategoryPayerPolicy [id number] AARTamica [id number] 2022- Present [address] [place] [address] [id number] Care Other (unspecified)[facility] Member Subscriber Plan / Payer (Effective 2021-Present) Name: Chriss Oliver ID: [id number] Relation to Subscriber: Self Name: Delano Oliver Payer ID: [id number] (NAIC) Group ID: [id number] N Type: Not on file Address: [facility] [address] [place] [id number] Health Insurance [id number] 2007Medicare [id number] [id number] 43-53-8044Iscs-[id number] [id number] 2.0.1.050874.3.579.2. [id number] 2.0.1.629380.3.579.2.43117-37-0610Tedbnpf2232423 2.840.1.164469.3.579.2.28030-93-7330Hwgyodh6605560 2.0.1.330318.3.579.2.28709-53-1074Lyqkasj8961886 2.840.1.996531.3.57[id number] 2.840.1.654081.3.579.2.17183-81-4446Fovoqfw4906585 2.16.840.1.270637.3.579.2.18679-57-5953Befzxfk9942024 2.16.840.1.522651.3.579.2.05224-03-9398Pnkkyye3477514 2.16.840.1.858064.3.579.2.24417-50-6749Ezxkqdf7141619 2.16.840.1.520548.3.579.2.06918-99-3026Yberqht2992497 2.16.840.1.958692.3.579.2.76002-62-1652Renfckm1380103 2.840.1.540609.3.579.2.36830-35-2397Fgdqrtp1167734 2.840.1.784443.3.579.2.58228-74-1796Hhpanza8002319 2.16.840.1.915331.3.579.2.36733-46-8035Zjjyqzd9986894 2.16.840.1.983959.3.579.2.64011-25-6691Jvswtcd9021656 2.840.1.651406.3.579.2.57054-56-4661Skdjfpx2936821 2.16840.1.711009.3.579.2.13944-44-1819Symfyyv5973106 2.16840.1.297110.3.579.2.77061-32-0456Lqjbcob3570004 2.16.840.1.100388.3.579.2.51364-34-2485Onujwez5739309 2.16840.1.140782.3.579.2.88305-78-7811Pbkqybb9767280 2.16840.1.122249.3.579.2.04345-27-4696Kytycwk9965867 2.840.1.103437.3.579.2.30486-10-4093Ypfnxqv26121044 2.16840.1.919271.3.579.2.615587-73-7758Ieopupd72139570 2.840.1.472918.3.579.2.654137-00-3139Tlnodto69680766 2.840.1.024045.3.579.2.764015-85-4670Bigcmha28039496 2.840.1.584607.3.579.2.521278-15-3453Ffraskg86168717 2.840.1.910416.3.579.2.298353-27-0055Ocatksj81196063 2.840.1.367845.3.579.2.205092-15-0817Rcvropw36679794 2.840.1.827249.3.579.2.301578-52-1147Sbphywf50969076 2.840.1.272005.3.579.2.693822-07-8677Yxzdzqb83114283 2.840.1.591271.3.579.2.883909-11-0072Ahczpkc80992817 2.840.1.891714.3.579.2.889477-62-1691Rtmvpzo27569357 2.840.1.105661.3.579.2.999331-55-7122Hszwgsg49716866 2.840.1.711702.3.579.2.417910-77-8109Rgwpbyb95538734 2.16.840.1.315585.3.579.2.075121-31-7848Fdjokxu83491018 2.16.840.1.777388.3.579.2.855791-90-0656Kwemocc22186306 2.16840.1.393103.3.579.2.474803-57-8474Jshknhp48161927 2.16840.1.043750.3.579.2.927715-05-6483Vnsaqct65084032 2.16840.1.936287.3.579.2.560841-22-9701Rybkccu24931475 2.16840.1.696464.3.579.2.186858-71-9866Mtrrdnx13231609 2.840.1.879330.3.579.2.010752-55-3751Vbwwomg87752680 2.840.1.884658.3.579.2.241380-36-5365Nzkncul64163086 2.840.1.547381.3.579.2.685645-81-3592Ivckeyp69334166 2.840.1.963393.3.579.2.088265-14-5662Irkfhzn96354499 2.840.1.934054.3.579.2.772871-55-1155Czzkxxl97692042 2.16840.1.943247.3.579.2.848610-54-8490Wwgixzu68717520 2.16840.1.080408.3.579.2.185355-85-3297Mfnhglg62852560 2.16.840.1.299573.3.579.2.177365-69-8113Dxfhuhh55881835 2.16840.1.372813.3.579.2.780183-57-3035Xmszctg16528109 2.16.840.1.776381.3.579.2.315106-38-8995Ihfnjzd38662802 2.16.840.1.241940.3.579.2.457406-67-3154Kqoyxlj09671247 2.16.840.1.297572.3.579.2.914164-11-9828Xthchrk32423896 2.16.840.1.322382.3.579.2.780099-30-5020Rlecjti05282115 2.16.840.1.745409.3.579.2.340021-97-3207Uuizjdf4989658 2.16.840.1.923979.3.579.2.071421-60-2854Rsgbzny1267623 2.16.840.1.618066.3.579.2.9584Ufbwgrg5708216 2.16.840.1.691227.3.579.2.593 Iubqvcr42634216 2.16.840.1.665357.3.579.2.531 Social History DateTypeDetailFacilityStart: 06-03-2022 End: 25-94-9580Kcsphec smoking status NHISEx-smoker (finding)[facility]ht[facility]: 95-59-2505[facility] 07-[facility]-2024 End: 62-53-2502Pra Assigned At [facility] [employer] Other History of tobacco useCurrent smokerProMetrohealth [facility] SystemHistory of tobacco useCigarette SmokerNOMS HealthcareStart: 06-01-2023 End: 51-96-3410Pomdixo use and exposureSmokeless tobacco non-userProFayette Medical Center Health SystemStart: 07-09-2024 End: 51-45-3660Ijbldybpy beverage intakeCurrent drinker of alcohol (finding)[facility] HealthcareStart: 07-08-2024 End: 81-71-8502Xyrjemt of Social functionCommunity Regional Medical Center SystemStart: 22-87-7632Hbhuxkbqc of Alcohol ConsumptionNot on [facility] HealthcareHow many standard drinks containing alcohol do you have on a typical day?1 or 2NOMS HealthcareHow often do you have 6 or more drinks on 1 occasion?NeverGAR[facility] MEM[facility]IAL [facility] HealthcareStart: 71-53-9222Tulnlte Commentcaffeine: noneGARFIELD MEMORIAL [facility] HealthcareStart: 07-34-8994Mmc assigned at birthNot on [facility] SystemStart: 91-89-9351Ctlokq identityIdentifies as male gender (finding)[facility] Start: 10-05-2023 End: 85-11-4419Fgkahivfi beverage intakeEx-drinker (finding)[facility] SystemStart: 05-21-2015 End: 28-06-7711EhfHnoa (finding)[facility] SystemStart: 36-48-4419Lgpqavs smoking status NHISNever smoked tobacco (finding)[facility]htart: 12-27-2024 End: 83-97-8780CMGI Follow upSDOH Follow upUniversity Hospitals Par[facility] Center Work Phone: Medical Equipment Procedure CodeEquipment CodeEquipment Original TextEquipment IdentifierDates Arthroplasty, hip, bipolar()[id number] FDAStart: 61-11-9203Wnsqzksjootn, hip, bipolar()[id number] FDA Start: 67-69-6138Pliui Sugar Diagnostic (Contour Next Test Strips) stripStart: 17-01-6784Zkykb Sugar Diagnostic (Contour Next Test Strips) stripStart: 34-18-8015Ultvx Sugar Diagnostic (Contour Next Test Strips) stripStart: 47-18-6524Gxplz Sugar Diagnostic (Contour Next Test Strips) stripStart: 21-13-0949Wgsii Sugar Diagnostic (Contour Next Test Strips) stripStart: 27-46-3338Aegjy Sugar Diagnostic (Contour Next Test Strips) stripStart: 07-82-1993Cqook Sugar Diagnostic (Contour Next Test Strips) stripStart: 73-86-7950Jslad Sugar Diagnostic (Contour Next Test Strips) stripStart: 18-25-6023Mpnjn Sugar Diagnostic (Contour Next Test Strips) stripStart: 44-10-2018Eqbpn Sugar Diagnostic (Contour Next Test Strips) stripStart: 86-01-3667Kjpuv Sugar Diagnostic (Contour Next Test Strips) stripStart: 12-15-2023 Goals DatePatient GoalDesired Activity/State Functional Status SwlcQshysitelcWdlpxjGguqdmmb30-75-6777Cybnmjopme statusPatient at Baseline [facility] Work Phone: 1(519) 994-473603807924-01-1810Ugzgjowujf statusPatient at Baseline [facility] Work Phone: Mental Status OyeiTgfdqsgucsAelfcsTtwxdcgz55-51-4816Ckrzcpdok functionPatient at Baseline [facility] Work Phone: 1([phone] 310-797903-076871-42-2790Swxiwgkup functionPatient at Baseline [facility] Work Phone: Clinical Notes 08-31-2021 to 08-27-2025 Note Date & IyjdZvteJfxuewbe62-09-7182 History of Present illness Narrative* Emely Batista, DPM - 08/27/2025 9:45 AM EST Images from the original note were not included. Subjective Patient ID: Delano Oliver is a 85 y.o. male who presents for Nail care (Delano Oliver is a 85 y.o. male. Pt is here today requesting nail care/BS: 117 A1C: ?/LV Dr. Linda 05-05-2025/SS: 08-27). HPI Established patient returns to clinic for [...] mg by mouth Daily, Disp: , Rfl: amiodarone (Pacerone) 200 MG tablet, Take 200 mg by mouth in the morning., Disp: , Rfl: amLODIPine (Norvasc) 10 MG tablet, Take 10 mg by mouth Daily (Patient not taking: Reported on 05/26/2025), Disp: , Rfl: Ascorbic Acid (vitamin C) [...] crush, chew, or split., Disp: , Rfl: Iszxtybzbqs-Amjicfbbk-Qihthp (Trelegy Ellipta) 200-62.5-25 MCG/ACT aerosol powder , [...] mouth Take with food., Disp: , Rfl: Allergies Patient has no [...] utilizing a nail nipper and electric bur rubber grinder without incident. I have discussed the [...] understanding. Emely Batista DPM documented in this encounterPerry County Memorial [id number] Evaluation note* Diagnosis Onset Date Resolution Status Admit Date Acute blood loss anemia acuteAugust 2024 12:41pmColon canceracuteAugust 2024 12:41pm Secondary hyperparathyroidismacuteAugust 2024 12:41pmColon cancerdeleted June 06, 2025 12:43pmHyposomniaacuteSeptember 2024 10:20amHypoxiaacute July 07, 2025 10:20amObstructive sleep apneaacuteSeptember 2024 10:20amPrimary insomniaacuteSeptember 2024 10:20amSnoringacuteSeptember 2024 10:20amAtrial fibrillationacuteSeptember 2024 9:17amChronic bronchitis, simpleacuteSeptember 2024 9:17amChronic HFrEF (heart failure with reduced ejection fraction)acuteSeptember 2024 9:17amChronic kidney diseaseacuteSeptember 2024 9:17amColon canceracuteSeptember 2024 9:17amHypercholesteremiaacuteSeptember 2024 9:17amHypothyroidism due to medicationacuteSeptember 2024 9:17amNonischemic dilated cardiomyopathy acuteSeptember 2024 9:17amObstructive sleep apneaacuteSeptember 2024 9:17amType 2 diabetes mellitus with hyperglycemiaacuteSeptember 2024 9:17amAtrial fibrillationacuteOctober 2024 3:46pmBruising at injection site acuteOctober 2024 3:46pmChronic HFrEF (heart failure with reduced ejection fraction)acuteOctober 2024 3:46pmNonischemic dilated cardiomyopathyacute July 22, 2025 3:46pmAnemia of renal diseaseacuteNov2024 2:06pm Chronic HFrEF (heart failure with reduced ejection fraction)acuteNov2024 2:06pmHypercholesteremiaacuteNov2024 2:06pmSecondary hyperparathyroidismacuteNov2024 2:06pmType 2 diabetes mellitus with diabetic chronic kidney diseaseacuteNov2024 2:06pmHypertensive chronic kidney disease with stage 1 through stage 4 chronic kideletedNovember 2024 2:06pmStage 4 chronic kidney diseasedeletedNovmountain vista medical center 2024 2:06pm [facility] Work Phone: 1(873) 423-558108-12-2025 [facility]2025 NoteUT Electrophysiology Consult Note Reason for visit: Afib and dilated CMP. 05/27/25 Patient is here today to discuss possible ablation or watchman. Patient states he is doing well. He has fatigue. He appears to keep SR based on last device check. Not on AAD as Amio was stopped by Dr OVALLE due to thyroid issue. 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 Subsequent echocardiogram in [...] infrahisian disease. He was brought back to Administrative Personal Assistant on 02/12/2020 due to what was discussed [...] syncope, weakness and light-headedness. (more content not included)...[facility]08-11-2025 History of Present illness Narrative* Emely Batista, HAYDEN - 05/26/2025 10:15 AM EDT Images from [...] crush, chew, or split., Disp: , Rfl: Ybbmfhxibpm-Hwhljyebm-Jiipft (Trelegy Ellipta) 200-62.5-25 MCG/ACT aerosol powder , [...] utilizing a nail nipper and electric bur rubber grinder without incident. I have discussed the [...] understanding. Emely Batista DPM documented in this encounterNOMS [id number] Evaluation note* Diagnosis Onset Date Resolution Status Admit Date Femoral neck fracture inactiveJuly 2024 9:55amStatus post hemiarthroplasty of right hipinactive April 29, 2025 9:55amTrochanteric bursitis, left hipdeletedJuly 2024 9:55amAcute blood loss anemiaacuteAugust 2024 12:41pmColon canceracute [place] 2024 12:41pmSecondary hyperparathyroidismacuteAugust 2024 12:41pmColon cancerdeletedAugust 2024 [...] fraction)acuteOctober 2024 3:46pmNonischemic dilated cardiomyopathyacuteOctober 2024 3:46pm [facility] Work Phone: 1([phone]) 779-268307-11-2025 NoteProvider called patient and d/w his regarding possible fluid retention/overload no remote device interrogation. State that he just had appointment with Dr Ortiz last week and overall is feeling fine without s/s of fluid overload. D/W them to call office for any concerns or questions- they voiced understanding. Fermin Jorgito [facility] Cardiology Available 7a-3pm via [employer] Chat [phone] [facility] District [facility]07-03-2025 Evaluation note* Diagnosis Onset Date [...] 12:41pmSecondary hyperparathyroidismacuteAugust 2024 12:41pmColon cancerdeletedAugust 2024 12:43pm [facility] Work Phone: 1(846) 456-617307-03-2025 Evaluation note* Diagnosis Onset Date Resolution Status [...] 2024 9:17am Nonischemic dilated cardiomyopathyacuteSeptember 2024 9:17am [facility] Work Phone: 1(657) 537-441007-01-2025 History of Present illness Narrative* Kenny Clay, PT - 04/15/2025 8:30 AM EDT Images [...] Please sign below. Date: documented in this encounterPerry County Memorial [id number] NoteUT Cardiology - [facility] Subjective Delano Oliver is a 84 [...] Pitting Edema present. Comm (more content not included)...[facility]06-16-2025 History of Present illness Narrative* Kenny Clay, PT - 03/31/2025 1:00 PM EDT Images [...] to be instructed in home exercise program. 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 Date: documented in this [facility]06-10-2025 Evaluation note* Diagnosis Onset Date Resolution Status Admit Date Skin tear of left forearm without compli cation deletedJune 2024 1:04pmCellulitis of arm, leftnoneactiveJune 2024 1:04pmAcute blood loss anemiaacuteJune 2024 8:51amChronic bronchitis, simpleacuteJune 2024 8:51amChronic HFrEF (heart failure with reduced ejection fraction)acuteJune 2024 8:51amChronic kidney diseaseacuteJune 2024 8:51amColon canceracuteJune 2024 8:51amHistory of thyrotoxicosisacuteJune 2024 8:51amHypercholesteremiaacuteJune 2024 8:51amHypothyroidism due to medicationacuteJun2024 8:51amNonischemic dilated cardiomyopathyacuteJune 2024 8:51amAnemia of renal [...] 12:41pmSecondary hyperparathyroidismacuteAugust 2024 12:41pmColon cancerdeletedAugust 2024 12:43pm [facility] Work Phone: 1([phone]) 967-268606-04-2025 History of Present illness Narrative* Kenny Clay, PT - 03/19/2025 3:00 PM EDT Images [...] Please sign below. Date: documented in this [facility]05-13-2025 Evaluation note* Diagnosis Onset Date Resolution Status Admit Date Femoral neck fracture inactiveMay 2024 11:18amStatus post hemiarthroplasty of right hipinactive February 25, 2025 11:18amTrochanteric bursitis, left hipdeletedMay 2024 11:18amColon cancerdeletedMa2024 1:52pmSkin tear of left forearm without complicationdel2024 1:04pmCellulitis of arm, leftnoneactiveJun2024 1:04pmAcute blood loss anemiaacuteJun2024 8:51amChronic bronchitis, simpleacuteJun2024 8:51amChronic HFrEF (heart failure with reduced ejection fraction)acuteJun2024 8:51amChronic kidney diseaseacute April 07, 2025 8:51amColon canceracuteJune 2024 8:51amHistory of thyrotoxicosisacuteJun2024 8:51amHypercholesteremiaacuteJun2024 8:51amHypothyroidism due to medicationacuteJun2024 8:51amNonischemic dilated cardiomyopathyacuteJune 2024 8:51amAnemia of renal diseaseacute Loni 2024 3:08pmChronic HFrEF (heart failure with reduced ejection fraction)acuteJuly 2024 3:08pmHypercholesteremiaacuteJuly 2024 3:08pm Secondary hyperparathyroidismacuteJuly 2024 3:08pmType 2 diabetes mellitus with diabetic chronic kidney diseaseacuteJuly 2024 3:08pmHypertensive chronic kidney disease with stage 1 through stage 4 chronic kideletedJuly 2024 3:08pmStage 4 chronic kidney diseasedeletedJuly 2024 3:08pmFemoral neck fractureinactiveJuly 2024 9:55amStatus post hemiarthroplasty of right hipinactiveJuly 2024 9:55amTrochanteric bursitis, left hipdeletedJuly 2024 9:55am [facility] Work Phone: 1([phone]) 384-402105-09-2025 History of Present illness Narrative* Emely Batista, HAYDEN - 02/21/2025 10:45 AM EDT Images from [...] History Past Medical History: Diagnosis Date A-fib ([facility]) Chronic kidney disease, stage 4 (severe) ([facility]) Colon cancer ([facility]) 08/2021 COPD (chronic obstructive pulmonary disease) ([facility]) Diabetes mellitus type II, controlled ([facility]) Gout HTN (hypertension) ([facility]) Hypercholesteremia ([facility]) Hypothyroid ([facility]) Sleep apnea Medications Current Outpatient Medications: [...] mg by mouth Daily, Disp: , Rfl: Qhzcrbjwtdj-Khuieqbfv-Dsiusk (Trelegy Ellipta) 200-62.5-25 MCG/ACT aerosol powder , [...] utilizing a nail nipper and electric bur rubber grinder without incident. I have discussed the [...] understanding. Emely Batista DPM documented in this encounterPerry County Memorial HospitalCmpunztsqh73-93-2686 NotePatients called with his blood pressures over the last 2 weeks Patient is currently holding Hydralazine, Amlodipine and Isosorbide. 143/82 135/67 130/73 121/70 119/61 141/67 148/85 131/69 149/79 112/79 134/75 130/78 133/77 130/69 140/68 147/77 Please adviseUniversity [facility]2025 NotePatients has been informed - New script sent out for Hydralazine 10 mg BID. will call with updated BP's in 2 weeksUnUniversity Hospitals [facility] 01-28-2025 NotePatient is here for a 3 [...] isosorbide have been put hold by the vision specialist due to low blood pressure. Patient still has samples of Eliquis and will be starting Xarelto. Review of Systems All other systems reviewed and are negative.[facility] 01-28-2025 NoteCardiovascular Medicine [facility] SUBJECTIVE Chief Complaint Patient presents with [...] isosorbide have been put hold by the vision specialist due to low blood pressure. Patient still [...] List Diagnosis Stage 3 chronic kidney disease ([facility]) Bacteremia Chronic systolic heart failure ([facility]) Dyslipidemia Edema of lower extremity Hyperlipidemia Hypertensive disorder Left ventricular systolic dysfunction Osteomyelitis of vertebra ([facility]) Paroxysmal atrial flutter ([facility]) Proteinuria Type 2 diabetes mellitus ([facility]) COPD (chronic obstructive pulmonary disease) (CMS/HCC) Dilated cardiomyopathy (CMS/HCC) Statin intolerance Stage 4 chronic kidney disease (CMS/HCC) Chronic bronchitis, simple (CMS/HCC) Chronic venous insufficiency Constipation Hyperlipidemia type II Hypothyroidism due to medication Impaired mobility and activities of daily living Iron deficiency anemia Colon cancer (CMS/HCC) Mucopurulent chronic bronchitis (CMS/HCC) Obstructive sleep apnea Pacemaker A-fib ([facility]) Psoas abscess, right (CMS/HCC) Pulmonary hypertension (CMS/HCC) [...] OCCASIONAL Drug use: Never Allergies Allergen Reactions Tnocopk-Fwg-Gnr Reductase Inhibitors Tramadol ROS Cardiovascular: Positive for [...] crush, chew, or split., (more content not included)...[facility]04-14-2025 Miscellaneous Notes* Telephone Encounter - Connie Dunham CMA - 01/27/2025 9:05 AM EDTSummary: [employer] Recently found a new vision specialist [facility] Telephone encounter Note* Telephone Encounter - Connie Dunham CMA - 01/27/2025 9:05 AM EDTSummary: [employer] Recently found a new vision specialist [facility]04-07-2025 Evaluation note* Diagnosis Onset Date [...] 1:59pmHypothyroidism due to medicationacuteApril 2024 1:59pmNonischemic dilated cardiomyopathyacuteApr2024 1:59pmFemoral neck fractureinactiveApril 2024 1:59pmHypotension after proceduredeleted Meagan 2024 1:59pmFemoral neck fractureinactiveMay 2024 11:18amStatus post hemiarthroplasty of right hipinactiveMa2024 11:18amTrochanteric bursitis, left hipdeletedMa2024 11:18amColon cancerdeletedMay 2024 1:52pmSkin tear of left forearm without complicationdeletedJune 2024 1:04pmCellulitis of arm, leftnoneactiveJune 2024 1:04pmAcute [...] with diabetic chronic kidney diseaseacuteJuly 2024 3:08pm [facility] Work Phone: 1(959) 744-450903-26-2025 Progress note Author Kaitlynn Del CidMercy Health St. Rita's Medical CenterNote Date/TimeMarch 2024 3:05pm[place] [phone] Nephrology Progress Note Signed Patient: Delano Oliver MR#: [id number] : 1940 Acct:[id number] Age/Sex: 84 / M Adm Date: 5 Loc: Room: 0Y0034-1 Type: ADM IN Attending Dr: Sotero Black [...] 11:31 01/08/25 11:31 01/08/25 11:31 01/08/25 11:31 12/30/24 05:00 Narrative: General: No acute distress [...] BID FERN Stop: 12/30/25 20:59 Last Admin: 01/08/25 09:13 [...] Admin: 01/08/25 09:13 Dose: 500 mg Balsam Qian/Charl[place] Oil (Balsam [place]/Charl[place] Oil Oint 60 Gm Tube) 1 applic TOPICAL BID PRN PRN Reason: tape caraballo Stop: 01/01/26 12:33 Last Admin: 01/04/25 21:05 Dose: 1 applic Bisacodyl (Bisacodyl 10 Mg Supp.Rect) 10 mg HI DAILY PRN PRN Reason: Constipation Stop: 12/27/25 14:22 Budesonide/Formoterol Fumarate (Budesonide/Formoterol 160-4.5 Mcg 120 Puff/10.2 Gm Hfa.Aer.Ad) 2 puff INHALATION BID FERN Stop: 12/28/25 08:59 Last Admin: 01/08/25 06:07 Dose: Not Given Calcium Carbonate (Calcium Carbonate/Vitamin D3 500 Mg/200 Unit Tablet) 1 tab PO TID.WITH.MEALS FERN Stop: 12/27/25 16:59 Last Admin: 01/08/25 12:30 [...] Enema 283 Mg/5 Ml Enema) 283 mg HI DAILY PRN PRN Reason: Constipation Stop: 12/27/25 [...] Admin: 01/02/25 08:49 Dose: Not Given Ipratropium [place] (Ipratropium [place] 0.5 Mg/2.5 Ml Vial.Neb) 0.5 mg INHALATION [...] 25 Mg Tab.Er.24h) 25 mg PO DAILY [facility] Stop: 01/03/26 08:59 Last Admin: 01/08/25 09:13 [...] (Phenyleph/Mineral Oil/Petrolat 57 Gm Tube) 1 applicator HI QID PRN PRN Reason: Hemorrhoids Stop: 01/04/26 23:01 Polyethylene Glycol (Polyethylene Glycol 3350 17 Gm Powd.Pack) 17 gm PO DAILY [facility] Stop: 12/28/25 08:59 Last Admin: 01/08/25 09:16 Dose: Not Given Sennosides (Sennosides 8.6 Mg Tablet) 17.2 mg PO DAILY@12 PRN PRN Reason: If no BM in 2 days Stop: 12/28/25 11:59 Sodium Chloride (Sodium Chloride 0.9 % 10 Ml Syringe) 0 ml IV-PUSH PRN PRN PRN Reason: Flush Stop: 12/27/25 14:22 Vitamin D (Cholecalciferol 125 Mcg (5,000 Units) Capsule) 125 mcg PO DAILY [facility] Stop: 12/28/25 08:59 Last Admin: 01/08/25 09:12 Dose: 125 mcg Allergies simvastatin Allergy (Unknown, Verified 12/19/24 08:50) Unknown Reaction Dvwhmyd-ULR-QoF Reductase Inhibitor (Hcnkszl-Lrm-Jox Reductase Inhibitor) Allergy (Unknown, Verified 12/19/24 08:50) [...] reading physician into a diagnostic report(s) for eDlano Oliver. I have reviewed the report(s) and [...] weekly Documented By: Kaitlynn Emanuel MD 01/08/25 1628 Signed By: <Electronically signed by Kaitlynn Emanuel MD> 01/08/25 4578 [facility] Work Phone: 1(534) 302-432103-25-2025 Progress note Author Sotero Black [facility] CampusNote Date/TimeMarch 2024 3:[place] [id number] Physiatry(Rehab) Progress Note Signed Patient: Delano Oliver MR#: [id number] : 1940 Acct:[id number] Age/Sex: 84 / M Adm Date: 5 Loc: Room: 2O4412-3 Type: ADM IN Attending Dr: Sotero Black [...] Allergy (Unknown, Verified 12/19/24 08:50) Unknown Reaction Lbvmfpi-LRT-ExW Reductase Inhibitor (Genphls-Zxi-Gte Reductase Inhibitor) Allergy (Unknown, Verified 12/19/24 08:50) [...] 08:59 500 mg DAILY FERN Administration Balsam [place] Oil 1 applic 01/01/25 12:34 01/04/25 21:05 Balsam [place] Oil Oint 60 Gm Tube TOPICAL 01/01/26 12:33 1 applic BID PRN Administration tape caraballo Bisacodyl 10 mg 12/27/24 14:23 Bisacodyl 10 Mg Supp.Rect HI 12/27/25 14:22 DAILY PRN Constipation Budesonide/Formoterol Fumarate [...] 14:23 Docusate Enema 283 Mg/5 Ml Enema HI 12/27/25 14:22 DAILY PRN Constipation Ezetimibe 10 [...] 01/01/26 20:59 Not Given BID FERN Ipratropium [place] 0.5 mg 12/27/24 20:00 01/07/25 05:44 Ipratropium [place] 0.5 Mg/2.5 Ml Vial.Neb INHALATION 12/27/25 19:59 [...] 01/04/25 23:02 Phenyleph/Mineral Oil/Petrolat 57 Gm Tube HI 01/04/26 23:01 QID PRN Hemorrhoids Polyethylene Glycol [...] equipment to enhance the patient's a functional scientology Encourage deep breathing exercises and incentive spirometry [...] diabetes mellitus with hyperglycemia: Qualifiers: Diabetes mellitus ad terminal makeup operator insulin use: without ad terminal makeup operator use Qualified Code(s): 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 More than 50 % of time was spent on patient/family counseling or coordination ofcare. Documented By: Sotero Black MD 01/07/25 0903 Signed By: <Electronically signed by Sotero Black MD> 01/07/25 1549 [facility] Work Phone: [phone]) [phone] Progress note Author Brenda Driscoll [facility] CampusNote Date/TimeMarch 2024 1:41[place] [address] Physiatry(Rehab) Progress Note Signed Patient: Delano Oliver MR#: [id number] : 1940 Acct:[id number] Age/Sex: 84 / M Adm Date: 5 Loc: Room: [address] [place] [address] Type: ADM IN Attending Dr: Sotero Black [...] Allergy (Unknown, Verified 12/19/24 08:50) Unknown Reaction Ogcqyyg-TFN-XqN Reductase Inhibitor (Bgcnbpd-Kvk-Thn Reductase Inhibitor) Allergy (Unknown, Verified 12/19/24 08:50) [...] 08:59 500 mg DAILY FERN Administration Balsam Qian/Charl[place] Oil 1 applic 01/01/25 12:34 01/04/25 21:05 Balsam Qian/Charleston Oil Oint 60 Gm Tube TOPICAL 01/01/26 12:33 1 applic BID PRN Administration tape caraballo Bisacodyl 10 mg 12/27/24 14:23 Bisacodyl 10 Mg Supp.Rect HI 12/27/25 14:22 DAILY PRN Constipation Budesonide/Formoterol Fumarate [...] 14:23 Docusate Enema 283 Mg/5 Ml Enema HI 12/27/25 14:22 DAILY PRN Constipation Ezetimibe 10 [...] 01/01/26 20:59 Not Given BID FERN Ipratropium [place] 0.5 mg 12/27/24 20:00 01/06/25 09:22 Ipratropium [place] 0.5 Mg/2.5 Ml Vial.Neb INHALATION 12/27/25 19:59 [...] 01/04/25 23:02 Phenyleph/Mineral Oil/Petrolat 57 Gm Tube HI 01/04/26 23:01 QID PRN Hemorrhoids Polyethylene Glycol [...] equipment to enhance the patient's a functional scientology Encourage deep breathing exercises and incentive spirometry [...] diabetes mellitus with hyperglycemia: Qualifiers: Diabetes mellitus assisted insulin use: without ad terminal makeup operator use Qualified Code(s): 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 More than 50 % of time was spent on patient/family counseling or coordination ofcare. <Statement entered by Sotero Black MD - 01/06/25 13:41> Patient was personally seen by me, Dr. Black, on the day of encounter, reviewed the history and therelevant portions of the chart, including current orders, allied health and clinical science consultant notes, labs/imaging and performed mckenna elements of exam and I formulated the plan of care and facilitated the medical decision making. I completed a substantive portion of this encounter, the medical decision makingportion of this note in its entirety, including Allied health note review, nursing note review, clinical science consultant note review,discussion with nursing and case management, and more than 50% of my time was spent on counseling and coordination of care, time spent 25 minutes Documented By: Brenda Driscoll APRN 01/06/25 1 220 Signed By: <Electronically signed by EDWARD Driscoll> 01/06/25 1225 <Electronically signed by Sotero Black MD> 01/06/25 5648 [facility] Work Phone: 1(805) 878-795903-24-2025 Progress note Author Kaitlynn ParkerKettering Health Greene MemorialNote Date/TimeMarch 2024 1:35pm[place] [address] Nephrology Progress Note Signed Patient: Delano Oliver MR#: [id number] : 1940 Acct:[id number] Age/Sex: 84 / M Adm Date: 5 Loc: Room: 1N2402-5 Type: ADM IN Attending Dr: Sotero Black [...] Admin: 01/06/25 08:33 Dose: 500 mg Balsam [place]/Charl[place] Oil (Balsam [place] Oil Oint 60 Gm Tube) 1 applic TOPICAL BID PRN PRN Reason: tape caraballo Stop: 01/01/26 12:33 Last Admin: 01/04/25 21:05 Dose: 1 applic Bisacodyl (Bisacodyl 10 Mg Supp.Rect) 10 mg HI DAILY PRN PRN Reason: Constipation Stop: 12/27/25 14:22 Budesonide/Formoterol Fumarate (Budesonide/Formoterol 160-4.5 Mcg 120 Puff/10.2 Gm Hfa.Aer.Ad) 2 puff INHALATION BID FERN Stop: 12/28/25 08:59 Last Admin: 01/06/25 06:28 Dose: Not Given Calcium Carbonate (Calcium Carbonate/Vitamin D3 500 Mg/200 Unit Tablet) 1 tab PO TID.WITH.MEALS [facility] Stop: 12/27/25 16:59 Last Admin: 01/06/25 11:48 [...] Enema 283 Mg/5 Ml Enema) 283 mg HI DAILY PRN PRN Reason: Constipation Stop: 12/27/25 14:22 Ezetimibe (Ezetimibe 10 Mg Tablet) 10 mg PO DAILY [facility] Stop: 12/28/25 08:59 Last Admin: 01/06/25 08:33 Dose: 10 mg Ferrous Sulfate (Ferrous Sulfate 324 Mg Tablet.Dr) 324 mg PO DAILY [facility] Stop: 01/04/26 08:59 Last Admin: 01/06/25 08:33 Dose: 324 mg Hydralazine HCl (Hydralazine 50 Mg Tablet) 50 mg PO BID [facility] Stop: 01/01/26 20:59 Last Admin: 01/02/25 08:49 Dose: Not Given Ipratropium [place] (Ipratropium [place] 0.5 Mg/2.5 Ml Vial.Neb) 0.5 mg INHALATION QID.RESP [facility] Stop: 12/27/25 19:59 Last Admin: 01/06/25 09:22 Dose: Not Given Isosorbide Dinitrate (Isosorbide Dinitrate 10 Mg Tablet) 10 mg PO TID [facility] Stop: 12/27/25 21:59 Last Admin: 01/02/25 08:48 Dose: 10 mg Lactulose (Lactulose 20 Gm/30 Ml Udc) 30 gm PO DAILY PRN PRN Reason: Constipation Stop: 12/27/25 14:22 Melatonin (Melatonin 5 Mg Tablet) 5 mg PO QHS [facility] Stop: 01/01/26 21:59 Last Admin: 01/05/25 20:20 Dose: 5 mg Metoprolol Succinate (Metoprolol Succinate 25 Mg Tab.Er.24h) 25 mg PO DAILY [facility] Stop: 01/03/26 08:59 Last Admin: 01/06/25 08:33 [...] (Phenyleph/Mineral Oil/Petrolat 57 Gm Tube) 1 applicator HI QID PRN PRN Reason: Hemorrhoids Stop: 01/04/26 23:01 Polyethylene Glycol (Polyethylene Glycol 3350 17 Gm Powd.Pack) 17 gm PO DAILY [facility] Stop: 12/28/25 08:59 Last Admin: 01/06/25 08:33 [...] Allergy (Unknown, Verified 12/19/24 08:50) Unknown Reaction Ogosils-UST-IlK Reductase Inhibitor (Hkcwxdl-Ipi-Zkp Reductase Inhibitor) Allergy (Unknown, Verified 12/19/24 08:50) [...] daily. Documented By: Kaitlynn Emanuel MD 01/06/25 133 Signed By: <Electronically signed by Kaitlynn Emanuel MD> 01/06/255 [facility] Work Phone: [phone]) [phone] Progress note Author Clyde Bedolla [facility] CampusNote Date/TimeMarch 2024 10:19pm[place] [address] Physiatry(Rehab) Progress Note Signed Patient: Delano Oliver MR#: [id number] : 1940 Acct:[id number] Age/Sex: 84 / M Adm Date: 5 Loc: Room: [address] [place] [address] Type: ADM IN Attending Dr: Sotero Black [...] Allergy (Unknown, Verified 12/19/24 08:50) Unknown Reaction Dfxwsle-UKT-IyP Reductase Inhibitor (Fgtzhsu-Hyb-Nxd Reductase Inhibitor) Allergy (Unknown, Verified 12/19/24 08:50) [...] 08:59 500 mg DAILY FERN Administration Balsam Qian/Charleston Oil 1 applic 01/01/25 12:34 01/04/25 21:05 Balsam [place] Oil Oint 60 Gm Tube TOPICAL 01/01/26 12:33 1 applic BID PRN Administration tape caraballo Bisacodyl 10 mg 12/27/24 14:23 Bisacodyl 10 Mg Supp.Rect HI 12/27/25 14:22 DAILY PRN Constipation Budesonide/Formoterol Fumarate [...] 14:23 Docusate Enema 283 Mg/5 Ml Enema HI 12/27/25 14:22 DAILY PRN Constipation Ezetimibe 10 [...] 01/01/26 20:59 Not Given BID FERN Ipratropium [place] 0.5 mg 12/27/24 20:00 01/05/25 18:09 Ipratropium [place] 0.5 Mg/2.5 Ml Vial.Neb INHALATION 12/27/25 19:59 [...] 01/04/25 23:02 Phenyleph/Mineral Oil/Petrolat 57 Gm Tube HI 01/04/26 23:01 QID PRN Hemorrhoids Polyethylene Glycol [...] equipment to enhance the patient's a functional scientology Encourage deep breathing exercises and incentive spirometry [...] diabetes mellitus with hyperglycemia: Qualifiers: Diabetes mellitus assisted insulin use: without assisted use Qualified Code(s): 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 More than 50 % of time was spent on patient/family counseling or coordination ofcare. Documented By: Clyde Bedolla MD 2215 Signed By: <Electronically signed by Clyde Bedolla MD> 01/05/252218 [facility] Work Phone: 1(805) 404-356203-23-2025 Progress note Author Krysten Mcclelland [facility] CampusNote Date/TimeMarch 2024 3:24pm[place] [address] Hospitalist Progress Note Signed Patient: Delano Oliver MR#: [id number] : 1940 Acct:[id number] Age/Sex: 84 / M Adm Date: 5 Loc: Room: 2Y5832-6 Type: ADM IN Attending Dr: Sotero Black [...] Allergy (Unknown, Verified 12/19/24 08:50) Unknown Reaction Masldqw-LPD-UhG Reductase Inhibitor (Nkvgztz-Okl-Ael Reductase Inhibitor) Allergy (Unknown, Verified 12/19/24 08:50) [...] 08:59 500 mg DAILY FERN Administration Balsam Qian/Charleston Oil 1 applic 01/01/25 12:34 01/04/25 21:05 Balsam Qian/Charleston Oil Oint 60 Gm Tube TOPICAL 01/01/26 12:33 1 applic BID PRN Administration tape caraballo Bisacodyl 10 mg 12/27/24 14:23 Bisacodyl 10 Mg Supp.Rect HI 12/27/25 14:22 DAILY PRN Constipation Budesonide/Formoterol Fumarate [...] 14:23 Docusate Enema 283 Mg/5 Ml Enema HI 12/27/25 14:22 DAILY PRN Constipation Ezetimibe 10 [...] 01/01/26 20:59 Not Given BID FERN Ipratropium [place] 0.5 mg 12/27/24 20:00 01/05/25 13:22 Ipratropium [place] 0.5 Mg/2.5 Ml Vial.Neb INHALATION 12/27/25 19:59 [...] 01/04/25 23:02 Phenyleph/Mineral Oil/Petrolat 57 Gm Tube HI 01/04/26 23:01 QID PRN Hemorrhoids Polyethylene Glycol [...] <Electronically signed by Sudha Sood MD> 01/05/25 1523 [facility] Work Phone: [phone]) 459-836703-23-2025 Progress note Author Winsome Goff [facility] CampusNote Date/TimeMarch 2024 2:19pm[place] [address] Nephrology Progress Note Signed Patient: Delano Oliver MR#: [id number] : 1940 Acct:[id number] Age/Sex: 84 / M Adm Date: 5 Loc: Room: 9B8801-3 Type: ADM IN Attending Dr: Sotero Black [...] Admin: 01/05/25 09:34 Dose: 500 mg Balsam Qian/Charl[place] Oil (Balsam [place] Oil Oint 60 Gm Tube) 1 applic TOPICAL BID PRN PRN Reason: tape caraballo Stop: 01/01/26 12:33 Last Admin: 01/04/25 21:05 Dose: 1 applic Bisacodyl (Bisacodyl 10 Mg Supp.Rect) 10 mg HI DAILY PRN PRN Reason: Constipation Stop: 12/27/25 14:22 Budesonide/Formoterol Fumarate (Budesonide/Formoterol 160-4.5 Mcg 120 Puff/10.2 Gm Hfa.Aer.Ad) 2 puff INHALATION BID FERN Stop: 12/28/25 08:59 Last Admin: 01/05/25 06:51 Dose: Not Given Calcium Carbonate (Calcium Carbonate/Vitamin D3 500 Mg/200 Unit Tablet) 1 tab PO TID.WITH.MEALS [facility] Stop: 12/27/25 16:59 Last Admin: 01/05/25 12:24 [...] Enema 283 Mg/5 Ml Enema) 283 mg HI DAILY PRN PRN Reason: Constipation Stop: 12/27/25 14:22 Ezetimibe (Ezetimibe 10 Mg Tablet) 10 mg PO DAILY [facility] Stop: 12/28/25 08:59 Last Admin: 01/05/25 09:34 Dose: 10 mg Ferrous Sulfate (Ferrous Sulfate 324 Mg Tablet.Dr) 324 mg PO DAILY FERN Stop: 01/04/26 08:59 Last Admin: 01/05/25 09:34 Dose: 324 mg Hydralazine HCl (Hydralazine 50 Mg Tablet) 50 mg PO BID [facility] Stop: 01/01/26 20:59 Last Admin: 01/02/25 08:49 Dose: Not Given Ipratropium [place] (Ipratropium [place] 0.5 Mg/2.5 Ml Vial.Neb) 0.5 mg INHALATION QID.RESP [facility] Stop: 12/27/25 19:59 Last Admin: 01/05/25 13:22 Dose: Not Given Isosorbide Dinitrate (Isosorbide Dinitrate 10 Mg Tablet) 10 mg PO TID [facility] Stop: 12/27/25 21:59 Last Admin: 01/02/25 08:48 Dose: 10 mg Lactulose (Lactulose 20 Gm/30 Ml Udc) 30 gm PO DAILY PRN PRN Reason: Constipation Stop: 12/27/25 14:22 Melatonin (Melatonin 5 Mg Tablet) 5 mg PO QHS [facility] Stop: 01/01/26 21:59 Last Admin: 01/04/25 21:05 Dose: 5 mg Metoprolol Succinate (Metoprolol Succinate 25 Mg Tab.Er.24h) 25 mg PO DAILY [facility] Stop: 01/03/26 08:59 Last Admin: 01/05/25 09:34 [...] (Phenyleph/Mineral Oil/Petrolat 57 Gm Tube) 1 applicator HI QID PRN PRN Reason: Hemorrhoids Stop: 01/04/26 23:01 Polyethylene Glycol (Polyethylene Glycol 3350 17 Gm Powd.Pack) 17 gm PO DAILY [facility] Stop: 12/28/25 08:59 Last Admin: 01/05/25 09:36 [...] Allergy (Unknown, Verified 12/19/24 08:50) Unknown Reaction Uhpgfhq-LNP-OrV Reductase Inhibitor (Ohyyvus-Req-Eha Reductase Inhibitor) Allergy (Unknown, Verified 12/19/24 08:50) [...] daily. Documented By: Winsome Goff MD 01/05/25 1416 Signed By: <Electronically signed by MD Winsome Goff> 01/05/25 1419 [facility] Work Phone: 1(850) 300-279803-22-2025 Progress note Author Winsome Goff [facility] CampusNote Date/TimeMarch 2024 5:53pm[place] [address] Nephrology Progress Note Signed Patient: Delano Oliver MR#: [id number] : 1940 Acct:[id number] Age/Sex: 84 / M Adm Date: 5 Loc: Room: [address] [place] [address] Type: ADM IN Attending Dr: Sotero Black [...] 121/58 L 96 Room Air 1 01/04/25 14:01/04/25 14:01/04/25 14:01/04/25 14:01/04/25 14:01/04/25 14:12/30/24 05:00 Narrative: Constitutional: Appears comfortable and [...] 100 Mg Tablet) 100 mg PO BID [facility] Stop: 12/30/25 20:59 Last Admin: 01/04/25 08:16 Dose: 100 mg Amiodarone HCl (Amiodarone 200 Mg Tablet) 200 mg PO DAILY [facility] Stop: 12/28/25 08:59 Last Admin: 01/04/25 08:15 Dose: 200 mg Apixaban (Apixaban 2.5 Mg Tablet) 2.5 mg PO BID [facility] Stop: 12/28/25 08:59 Last Admin: 12/31/24 08:30 Dose: 2.5 mg Ascorbic Acid (Ascorbic Acid 500 Mg Tablet) 500 mg PO DAILY [facility] Stop: 12/28/25 08:59 Last Admin: 01/04/25 08:16 Dose: 500 mg Balsam [place] Oil (Balsam Qian/Charl[place] Oil Oint 60 Gm Tube) 1 applic TOPICAL BID PRN PRN Reason: tape caraballo Stop: 01/01/26 12:33 Last Admin: 01/02/25 14:36 Dose: 1 applic Bisacodyl (Bisacodyl 10 Mg Supp.Rect) 10 mg HI DAILY PRN PRN Reason: Constipation Stop: 12/27/25 14:22 Budesonide/Formoterol Fumarate (Budesonide/Formoterol 160-4.5 Mcg 120 Puff/10.2 Gm Hfa.Aer.Ad) 2 puff INHALATION BID [facility] Stop: 12/28/25 08:59 Last Admin: 01/04/25 04:56 Dose: Not Given Calcium Carbonate (Calcium Carbonate/Vitamin D3 500 Mg/200 Unit Tablet) 1 tab PO TID.WITH.MEALS [facility] Stop: 12/27/25 16:59 Last Admin: 01/04/25 17:10 [...] Enema 283 Mg/5 Ml Enema) 283 mg HI DAILY PRN PRN Reason: Constipation Stop: 12/27/25 14:22 Ezetimibe (Ezetimibe 10 Mg Tablet) 10 mg PO DAILY [facility] Stop: 12/28/25 08:59 Last Admin: 01/04/25 08:15 Dose: 10 mg Ferrous Sulfate (Ferrous Sulfate 324 Mg Tablet.Dr) 324 mg PO DAILY [facility] Stop: 01/04/26 08:59 Last Admin: 01/04/25 08:16 Dose: 324 mg Hydralazine HCl (Hydralazine 50 Mg Tablet) 50 mg PO BID [facility] Stop: 01/01/26 20:59 Last Admin: 01/02/25 08:49 Dose: Not Given Ipratropium [place] (Ipratropium [place] 0.5 Mg/2.5 Ml Vial.Neb) 0.5 mg INHALATION QID.RESP FERN Stop: 12/27/25 19:59 Last Admin: 01/04/25 11:18 Dose: Not Given Isosorbide Dinitrate (Isosorbide Dinitrate 10 Mg Tablet) 10 mg PO TID [facility] Stop: 12/27/25 21:59 Last Admin: 01/02/25 08:48 Dose: 10 mg Lactulose (Lactulose 20 Gm/30 Ml Udc) 30 gm PO DAILY PRN PRN Reason: Constipation Stop: 12/27/25 14:22 Melatonin (Melatonin 5 Mg Tablet) 5 mg PO QHS [facility] Stop: 01/01/26 21:59 Last Admin: 01/03/25 21:24 Dose: 5 mg Metoprolol Succinate (Metoprolol Succinate 25 Mg Tab.Er.24h) 25 mg PO DAILY [facility] Stop: 01/03/26 08:59 Last Admin: 01/04/25 08:16 [...] Allergy (Unknown, Verified 12/19/24 08:50) Unknown Reaction Tkhxpjx-PIC-SnA Reductase Inhibitor (Beywqir-Eqk-Enj Reductase Inhibitor) Allergy (Unknown, Verified 12/19/24 08:50) [...] daily. Documented By: Winsome Goff MD 01/04/25 1748 Signed By: <Electronically signed by MD Winsome Goff> 01/04/25 2412 [facility] Work Phone: 1(757) 881-239803-22-2025 Progress note Author Brenda Driscoll [facility] CampusNote Date/TimeMarch 2024 11:02pm[place] [address] Physiatry(Rehab) Progress Note Signed Patient: Delano Oliver MR#: [id number] : 1940 Acct:[id number] Age/Sex: 84 / M Adm Date: 5 Loc: Room: 3F9652-4 Type: ADM IN Attending Dr: Sotero Black [...] . He can be referred to or [facility] gastroenterology in outpatient settings. Dayan still wants [...] Allergy (Unknown, Verified 12/19/24 08:50) Unknown Reaction Sbbtlxx-BES-CiP Reductase Inhibitor (Frarfob-Zun-Avc Reductase Inhibitor) Allergy (Unknown, Verified 12/19/24 08:50) [...] 08:59 500 mg DAILY FERN Administration Balsam Qian/Charl[place] Oil 1 applic 01/01/25 12:34 01/02/25 14:36 Balsam [place] Oil Oint 60 Gm Tube TOPICAL 01/01/26 12:33 1 applic BID PRN Administration tape caraballo Bisacodyl 10 mg 12/27/24 14:23 Bisacodyl 10 Mg Supp.Rect HI 12/27/25 14:22 DAILY PRN Constipation Budesonide/Formoterol Fumarate [...] 14:23 Docusate Enema 283 Mg/5 Ml Enema HI 12/27/25 14:22 DAILY PRN Constipation Ezetimibe 10 mg 12/28/24 09:00 01/03/25 08:06 Ezetimibe 10 Mg Tablet PO 12/28/25 08:59 10 mg DAILY FERN Administration Ferrous Sulfate 324 mg 01/04/25 09:00 Ferrous Sulfate 324 Mg Tablet.Dr PO 01/04/26 08:59 DAILY FERN Hydralazine HCl 50 mg 01/01/25 21:00 01/02/25 08:49 Hydralazine 50 Mg Tablet PO 01/01/26 20:59 Not Given BID FERN Sodium Chloride 100 mls @ 20 mls/hr 01/03/25 09:45 0.9% Sodium Chloride 100 Ml IV 01/04/25 09:44 PROTOCOL PRN BLOOD TRANSFUSION Ipratropium [place] 0.5 mg 12/27/24 20:00 01/03/25 12:41 Ipratropium [place] 0.5 Mg/2.5 Ml Vial.Neb INHALATION 12/27/25 19:59 [...] equipment to enhance the patient's a functional scientology Encourage deep breathing exercises and incentive spirometry [...] diabetes mellitus with hyperglycemia: Qualifiers: Diabetes mellitus assisted insulin use: without assisted use Qualified Code(s): 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 More than 50 % of time was spent on patient/family counseling or coordination ofcare. <Statement entered by Clyde Bedolla MD - 01/03/25 23:02> This documentation has been reviewed and approved. Documented By: Brenda Driscoll APRN 01/03/25 1 000 Signed By: <Electronically signed by EDWARD Driscoll> 01/03/25 1406 <Electronically signed by Clyde Bedolla MD> 01/03/25 2302 [facility] Work Phone: 1([phone]) 149-982003-21-2025 Consult note Author Son Nicole [facility] CampusNote Date/TimeMarch 2024 12:05pm[place] [address] Gastroenterology Consult Note Signed Patient: Delano Oliver MR#: [id number] : 1940 Acct:[id number] Age/Sex: 84 / M Adm Date: 5 Loc: Room: [address] [place] [address] Type: ADM IN Attending Dr: Sotero Black [...] unless noted below or in HPI [facility] Medical History Former smoker quit at [...] Allergy (Unknown, Verified 12/19/24 08:50) Unknown Reaction Uvbczrz-KVQ-EjS Reductase Inhibitor (Pneqvrn-Exu-Njj Reductase Inhibitor) Allergy (Unknown, Verified 12/19/24 08:50) [...] mg PO DAILY #30 tabs 12/27/24 [Rx Zehncmlmp81/14/25] azithromycin 250 mg tablet 500 mg (2 [...] signed by Son Nicole MD> 01/03/25 1205 [facility] Work Phone: 1(168) 358-126403-20-2025 Progress note Author Winsome NielsonMercy Health Clermont HospitalNote Date/TimeMarch 2024 2:[address] [place] [address] Nephrology Progress Note Signed Patient: Delano Oliver MR#: [id number] : 1940 Acct:[id number] Age/Sex: 84 / M Adm Date: 5 Loc: Room: 0P5505-8 Type: ADM IN Attending Dr: Sotero Black [...] 100 Mg Tablet) 100 mg PO BID [facility] Stop: 12/30/25 20:59 Last Admin: 01/02/25 08:48 [...] Admin: 01/02/25 08:48 Dose: 500 mg Balsam [place]/Charleston Oil (Balsam Qian/Charleston Oil Oint 60 Gm Tube) 1 applic TOPICAL BID PRN PRN Reason: tape caraballo Stop: 01/01/26 12:33 Bisacodyl (Bisacodyl 10 Mg Supp.Rect) 10 mg HI DAILY PRN PRN Reason: Constipation Stop: 12/27/25 [...] Enema 283 Mg/5 Ml Enema) 283 mg HI DAILY PRN PRN Reason: Constipation Stop: 12/27/25 [...] Reason: BLOOD TRANSFUSION Stop: 01/03/25 09:01 Ipratropium [place] (Ipratropium [place] 0.5 Mg/2.5 Ml Vial.Neb) 0.5 mg INHALATION [...] QHS FERN Stop: 01/01/26 21:59 Last Admin: 01/01/25 21:17 Dose: 5 mg Metoprolol Succinate (Metoprolol Succinate 25 Mg Tab.Er.24h) 25 mg PO DAILY FERN Stop: 01/03/26 08:59 Oxycodone HCl (Oxycodone Ir [...] Allergy (Unknown, Verified 12/19/24 08:50) Unknown Reaction Staiwux-MVV-YfL Reductase Inhibitor (Ptaqeda-Hxu-Fno Reductase Inhibitor) Allergy (Unknown, Verified 12/19/24 08:50) [...] and he follow-up with Dr. Syed in [place]. * Will transfuse additional 1 unit of [...] <Electronically signed by MD Winsome Goff> 01/02/25 4876 [facility] Work Phone: [phone] 609-613703-20-2025 Progress note Author Sotero Black [facility] CampusNote Date/TimeMarch 2024 10:04[place] [id number] Physiatry(Rehab) Progress Note Signed Patient: Delano Oliver MR#: [id number] : 1940 Acct:[id number] Age/Sex: 84 / M Adm Date: 5 Loc: Room: [address] [place] [address] Type: ADM IN Attending Dr: Sotero Black [...] Allergy (Unknown, Verified 12/19/24 08:50) Unknown Reaction Auoyowo-DML-HrL Reductase Inhibitor (Tdxcwvr-Tjw-Ujw Reductase Inhibitor) Allergy (Unknown, Verified 12/19/24 08:50) [...] 08:59 500 mg DAILY FERN Administration Balsam Qian/[place] Oil 1 applic 01/01/25 12:34 Balsam Qian/Charleston Oil Oint 60 Gm Tube TOPICAL 01/01/26 12:33 BID PRN tape caraballo Bisacodyl 10 mg 12/27/24 14:23 Bisacodyl 10 Mg Supp.Rect HI 03/14/26 14:22 DAILY PRN Constipation Budesonide/Formoterol Fumarate 2 [...] 14:23 Docusate Enema 283 Mg/5 Ml Enema HI 12/27/25 14:22 DAILY PRN Constipation Ezetimibe 10 mg 12/28/24 09:00 01/01/25 09:03 Ezetimibe 10 Mg Tablet PO 12/28/25 08:59 10 mg DAILY FERN Administration Hydralazine HCl 50 mg 01/01/25 21:00 Hydralazine 50 Mg Tablet PO 01/01/26 20:59 BID FERN Ipratropium [place] 0.5 mg 12/27/24 20:00 01/01/25 12:00 Ipratropium [place] 0.5 Mg/2.5 Ml Vial.Neb INHALATION 12/27/25 19:59 [...] equipment to enhance the patient's a functional scientology Encourage deep breathing exercises and incentive spirometry [...] diabetes mellitus with hyperglycemia: Qualifiers: Diabetes mellitus ad terminal makeup operator insulin use: without assisted use Qualified Code(s): 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 I completed a substantive portion of this encounter, the medical decision makingportion of this note in its entirety, including Allied health note review, nursing note review, clinical science consultant note review,discussion with nursing and case management, and more than 50% of my time was spent on counseling and coordination of care, time spent 26 minutes Documented By: Sotero Black MD 01/01/25 1522 Signed By: <Electronically signed by Sotero Black MD> 01/02/25 6762 [facility] Work Phone: [phone]) [phone] Progress note Author Winsome Goff [facility] CampusNote Date/TimeMarch 2024 3:07[place] [address] Nephrology Progress Note Signed Patient: Delano Oliver MR#: [id number] : 1940 Acct:[id number] Age/Sex: 84 / M Adm Date: 5 Loc: Room: [address] [place] [address] Type: ADM IN Attending Dr: Sotero Black [...] Tablet) 100 mg PO BID FERN Stop: 03/17/26 20:59 Last Admin: 01/01/25 09:03 Dose: 100 [...] Admin: 01/01/25 09:03 Dose: 500 mg Balsam Qian/Charl[place] Oil (Balsam Qian/Charleston Oil Oint 60 Gm Tube) 1 applic TOPICAL BID PRN PRN Reason: tape caraballo Stop: 01/01/26 12:33 Bisacodyl (Bisacodyl 10 Mg Supp.Rect) 10 mg HI DAILY PRN PRN Reason: Constipation Stop: 12/27/25 14:22 Budesonide/Formoterol Fumarate (Budesonide/Formoterol 160-4.5 Mcg 120 Puff/10.2 Gm Hfa.Aer.Ad) 2 puff INHALATION BID [facility] Stop: 12/28/25 08:59 Last Admin: 01/01/25 11:59 Dose: Not Given Calcium Carbonate (Calcium Carbonate/Vitamin D3 500 Mg/200 Unit Tablet) 1 tab PO TID.WITH.MEALS [facility] Stop: 12/27/25 16:59 Last Admin: 01/01/25 12:30 Dose: 1 tab Docusate Sodium (Docusate 100 Mg Capsule) 100 mg PO BID PRN PRN Reason: Constipation Stop: 12/27/25 14:22 Docusate Sodium (Docusate Enema 283 Mg/5 Ml Enema) 283 mg HI DAILY PRN PRN Reason: Constipation Stop: 12/27/25 14:22 Ezetimibe (Ezetimibe 10 Mg Tablet) 10 mg PO DAILY [facility] Stop: 12/28/25 08:59 Last Admin: 01/01/25 09:03 Dose: 10 mg Hydralazine HCl (Hydralazine 50 Mg Tablet) 100 mg PO TID FERN Stop: 12/27/25 21:59 Last Admin: 01/01/25 14:10 Dose: 100 mg Sodium Chloride (0.9% Sodium Chloride 100 Ml) 100 mls @ 20 mls/hr IV PROTOCOL PRN PRN Reason: BLOOD TRANSFUSION Stop: 01/01/25 15:09 Ipratropium [place] (Ipratropium [place] 0.5 Mg/2.5 Ml Vial.Neb) 0.5 mg INHALATION QID.RESP [facility] Stop: 12/27/25 19:59 Last Admin: 01/01/25 12:00 Dose: Not Given Isosorbide Dinitrate (Isosorbide Dinitrate 10 Mg Tablet) 10 mg PO TID [facility] Stop: 12/27/25 21:59 Last Admin: 01/01/25 14:10 Dose: 10 mg Lactulose (Lactulose 20 Gm/30 Ml Udc) 30 gm PO DAILY PRN PRN Reason: Constipation Stop: 12/27/25 14:22 Metoprolol Succinate (Metoprolol Succinate 100 Mg Tab.Er.24h) 100 mg PO DAILY [facility] Stop: 12/28/25 08:59 Last Admin: 01/01/25 09:03 [...] 17 Gm Powd.Pack) 17 gm PO DAILY [facility] Stop: 12/28/25 08:59 Last Admin: 01/01/25 09:03 [...] 10 Ml Syringe) 10 ml IV-PUSH Q8H [facility] Stop: 12/28/25 05:59 Last Admin: 01/01/25 03:48 Dose: 10 ml Vitamin D (Cholecalciferol 125 Mcg (5,000 Units) Capsule) 125 mcg PO DAILY FERN Stop: 12/28/25 08:59 Last Admin: 01/01/25 09:03 Dose: 125 mcg Allergies simvastatin Allergy (Unknown, Verified 12/19/24 08:50) Unknown Reaction Vtjunya-MVF-ZjO Reductase Inhibitor (Fcllzaq-Moh-Njf Reductase Inhibitor) Allergy (Unknown, Verified 12/19/24 08:50) [...] signed by MD Winsome Goff> 01/01/25 1507 [facility] Work Phone: [phone] 321-420903-18-2025 Progress note Author Winsome Goff [facility] CampusNote Date/TimeMarch 2024 3:14pm[place] [address] Nephrology Progress Note Signed Patient: Delano Oliver MR#: [id number] : 1940 Acct:[id number] Age/Sex: 84 / M Adm Date: 5 Loc: Room: 7K6765-6 Type: ADM IN Attending Dr: Sotero Black [...] 500 Mg Tablet) 500 mg PO DAILY [facility] Stop: 12/28/25 08:59 Last Admin: 12/31/24 08:30 Dose: 500 mg Bisacodyl (Bisacodyl 10 Mg Supp.Rect) 10 mg HI DAILY PRN PRN Reason: Constipation Stop: 12/27/25 14:22 Budesonide/Formoterol Fumarate (Budesonide/Formoterol 160-4.5 Mcg 120 Puff/10.2 Gm Hfa.Aer.Ad) 2 puff INHALATION BID [facility] Stop: 12/28/25 08:59 Last Admin: 12/31/24 06:34 Dose: Not Given Calcium Carbonate (Calcium Carbonate/Vitamin D3 500 Mg/200 Unit Tablet) 1 tab PO TID.WITH.MEALS [facility] Stop: 12/27/25 16:59 Last Admin: 12/31/24 12:53 Dose: 1 tab Docusate Sodium (Docusate 100 Mg Capsule) 100 mg PO BID PRN PRN Reason: Constipation Stop: 12/27/25 14:22 Docusate Sodium (Docusate Enema 283 Mg/5 Ml Enema) 283 mg HI DAILY PRN PRN Reason: Constipation Stop: 12/27/25 [...] Reason: BLOOD TRANSFUSION Stop: 01/01/25 12:03 Ipratropium [place] (Ipratropium [place] 0.5 Mg/2.5 Ml Vial.Neb) 0.5 mg INHALATION QID.RESP [facility] Stop: 12/27/25 19:59 Last Admin: 12/31/24 13:07 Dose: Not Given Isosorbide Dinitrate (Isosorbide Dinitrate 10 Mg Tablet) 10 mg PO TID [facility] Stop: 12/27/25 21:59 Last Admin: 12/31/24 08:30 Dose: 10 mg Lactulose (Lactulose 20 Gm/30 Ml Udc) 30 gm PO DAILY PRN PRN Reason: Constipation Stop: 12/27/25 14:22 Metoprolol Succinate (Metoprolol Succinate 100 Mg Tab.Er.24h) 100 mg PO DAILY [facility] Stop: 12/28/25 08:59 Last Admin: 12/31/24 08:30 [...] 17 Gm Powd.Pack) 17 gm PO DAILY [facility] Stop: 12/28/25 08:59 Last Admin: 12/31/24 08:30 [...] 10 Ml Syringe) 10 ml IV-PUSH Q8H [facility] Stop: 03/15/26 05:59 Last Admin: 12/31/24 05:13 Dose: 10 ml Vitamin D (Cholecalciferol 125 Mcg (5,000 Units) Capsule) 125 mcg PO DAILY FERN Stop: 12/28/25 08:59 Last Admin: 12/31/24 08:30 Dose: 125 mcg Allergies simvastatin Allergy (Unknown, Verified 12/19/24 08:50) Unknown Reaction Aasxgbr-PNW-UgT Reductase Inhibitor (Wiggnva-Kee-Pqg Reductase Inhibitor) Allergy (Unknown, Verified 12/19/24 08:50) [...] and he follow-up with Dr. Syed in [place]. * Hemoglobin did drop down to 7.6 [...] <Electronically signed by MD Winsome Goff> 12/31/24 4160 [facility] Work Phone: [phone] Progress note Author Sotero Black [facility] CampusNote Date/TimeMarch 2024 12:09pm[place] [address] Physiatry(Rehab) Progress Note Signed Patient: Delano Oliver MR#: [id number] : 1940 Acct:[id number] Age/Sex: 84 / M Adm Date: 5 Loc: Room: 6R3856-3 Type: ADM IN Attending Dr: Sotero Black [...] % (Auto) N/A Lymph % (Auto) N/A Routt % (Auto) N/A Eos % (Auto) N/A Baso % (Auto) N/A Nucleat RBC Rel Count N/A Neut # (Auto) N/A Lymph # (Auto) N/A Routt # (Auto) N/A Eos # (Auto) N/A [...] Allergy (Unknown, Verified 12/19/24 08:50) Unknown Reaction Thtffge-SEE-AjD Reductase Inhibitor (Gphslak-Scy-Wna Reductase Inhibitor) Allergy (Unknown, Verified 12/19/24 08:50) [...] PO 12/28/25 08:59 Not Given DAILY FERN Amiodarone HCl 200 mg 12/28/24 09:00 12/30/24 [...] mg 12/27/24 14:23 Bisacodyl 10 Mg Supp.Rect HI 12/27/25 14:22 DAILY PRN Constipation Budesonide/Formoterol Fumarate 2 puff 12/28/24 09:00 12/30/24 06:37 Budesonide/Formoterol 160-4.5 Mcg 120 Puff/10.2 Gm Hfa.Aer.Ad INHALATION 12/28/25 08:59 Not Given BID FERN Calcium Carbonate 1 tab 12/27/24 17:00 12/30/24 11:04 Calcium Carbonate/Vitamin D3 500 Mg/200 Unit Tablet PO 12/27/25 16:59 1 tab TID.WITH.MEALS FERN Administration Docusate Sodium 100 mg 12/27/24 14:23 Docusate 100 Mg Capsule PO 12/27/25 14:22 BID PRN Constipation Docusate Sodium 283 mg 12/27/24 14:23 Docusate Enema 283 Mg/5 Ml Enema HI 12/27/25 14:22 DAILY PRN Constipation Ezetimibe 10 mg 12/28/24 09:00 12/30/24 10:50 Ezetimibe 10 Mg Tablet PO 12/28/25 08:59 Not Given DAILY FERN Hydralazine HCl 100 mg 12/27/24 22:00 12/30/24 10:50 Hydralazine 50 Mg Tablet PO 12/27/25 21:59 Not Given TID FERN Ipratropium [place] 0.5 mg 12/27/24 20:00 12/30/24 12:10 Ipratropium [place] 0.5 Mg/2.5 Ml Vial.Neb INHALATION 12/27/25 19:59 [...] equipment to enhance the patient's a functional scientology Encourage deep breathing exercises and incentive spirometry [...] diabetes mellitus with hyperglycemia: Qualifiers: Diabetes mellitus ad terminal makeup operator insulin use: without ad terminal makeup operator use Qualified Code(s): 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 I completed a substantive portion of this encounter, the medical decision makingportion of this note in its entirety, including Allied health note review, nursing note review, clinical science consultant note review,discussion with nursing and case management, and more than 50% of my time was spent on counseling and coordination of care, time spent 20 minutes Documented By: Sotero Black MD 12/30/24 1512 Signed By: <Electronically signed by Sotero Black MD> 12/31/24 1204 [facility] Work Phone: [phone]) [phone] Progress note Author Harpreetbeba Shell [facility] CampusNote Date/TimeMarch 2024 5:13pm[place] [address] Nephrology Progress Note Signed Patient: Delano Oliver MR#: [id number] : 1940 Acct:[id number] Age/Sex: 84 / M Adm Date: 5 Loc: Room: [address] [place] [address] Type: ADM IN Attending Dr: Sotero Black [...] Bisacodyl (Bisacodyl 10 Mg Supp.Rect) 10 mg HI DAILY PRN PRN Reason: Constipation Stop: 12/27/25 [...] Enema 283 Mg/5 Ml Enema) 283 mg HI DAILY PRN PRN Reason: Constipation Stop: 12/27/25 14:22 Ezetimibe (Ezetimibe 10 Mg Tablet) 10 mg PO DAILY FERN Stop: 12/28/25 08:59 Last Admin: 12/30/24 10:50 Dose: Not Given Hydralazine HCl (Hydralazine 50 Mg Tablet) 100 mg PO TID FERN Stop: 12/27/25 21:59 Last Admin: 12/30/24 15:11 Dose: 100 mg Ipratropium [place] (Ipratropium [place] 0.5 Mg/2.5 Ml Vial.Neb) 0.5 mg INHALATION QID.RESP [facility] Stop: 12/27/25 19:59 Last Admin: 12/30/24 16:45 Dose: Not Given Isosorbide Dinitrate (Isosorbide Dinitrate 10 Mg Tablet) 10 mg PO TID [facility] Stop: 12/27/25 21:59 Last Admin: 12/30/24 15:11 Dose: 10 mg Lactulose (Lactulose 20 Gm/30 Ml Udc) 30 gm PO DAILY PRN PRN Reason: Constipation Stop: 12/27/25 14:22 Metoprolol Succinate (Metoprolol Succinate 100 Mg Tab.Er.24h) 100 mg PO DAILY [facility] Stop: 12/28/25 08:59 Last Admin: 12/30/24 10:50 [...] 17 Gm Powd.Pack) 17 gm PO DAILY [facility] Stop: 12/28/25 08:59 Last Admin: 12/30/24 10:50 [...] 10 Ml Syringe) 10 ml IV-PUSH Q8H [facility] Stop: 12/28/25 05:59 Last Admin: 12/30/24 15:11 Dose: 10 ml Vitamin D (Cholecalciferol 125 Mcg (5,000 Units) Capsule) 125 mcg PO DAILY [facility] Stop: 12/28/25 08:59 Last Admin: 12/30/24 10:49 Dose: Not Given Allergies simvastatin Allergy (Unknown, Verified 12/19/24 08:50) Unknown Reaction Fiafmjc-AOB-AsA Reductase Inhibitor (Yqlwrwm-Wia-Aju Reductase Inhibitor) Allergy (Unknown, Verified 12/19/24 08:50) [...] Scott Jr., D.O.12/30/2024 1:24 PM Dictation Location: [place] [address] Venous Duplex 12/30/24 05:00 IMPRESSION: NO EVIDENCE FOR DEEP VEIN THROMBOSIS OR PROXIMAL SUPERFICIAL THROMBOPHLEBITIS INTHE RIGHT OR LEFT LOWER EXTREMITY. Impression dictated by: Dominik Lugo M.D.12/30/2024 12:28 PM Dictation Location: [place] [address] Any impression(s) listed above is documentation that [...] and he follow-up with Dr. Syed in [place]. * Hemoglobin did drop down to 7.7 g/dL after restarting Eliquis 2.5 mg twice a day. Will recheck CBC tomorrow and if hemoglobin continues to drop, will hold Eliquis. Will transfuse if hemoglobin below 7 g/dL. Information about Watchman device was discussed with the patient and his . 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 device with his jtac in [place] and stated that he is not required [...] signed by MD Winsome Goff> 12/30/24 1713 [facility] Work Phone: [phone] 307-902903-17-2025 Radiology Diagnostic [facility] note[facility] Work Phone: [phone]) 814-652403-16-2025 Progress note Author Zoie Field [facility] CampusNote Date/TimeMarch 2024 4:48pm[place] [address] Hospitalist Progress Note Signed Patient: Delano Oliver MR#: [id number] : 1940 Acct:[id number] Age/Sex: 84 / M Adm Date: 5 Loc: Room: [address] [place] [address] Type: ADM IN Attending Dr: Sotero Black [...] edema. bilateral venous stasis and varicosities. Right automatic bow maker machine tender hallux and distal metatarsals, no warmth, mild erythema hallux, dorsal foot edema, painful right ankle ROM. Left foot no edema warmth or erythema however tender overall SKIN- W/D, good turgor, right dressing in place surgical site not seen Objective Lab Results 12/28/24 05:22 12/28/24 05:22 Meds Allergies and Active Meds Allergies simvastatin Allergy (Unknown, Verified 12/19/24 08:50) Unknown Reaction Fhajiux-XUM-RfV Reductase Inhibitor (Pajhuuk-Twz-Lzq Reductase Inhibitor) Allergy (Unknown, Verified 12/19/24 08:50) [...] mg 12/27/24 14:23 Bisacodyl 10 Mg Supp.Rect HI 12/27/25 14:22 DAILY PRN Constipation Budesonide/Formoterol Fumarate [...] 14:23 Docusate Enema 283 Mg/5 Ml Enema HI 12/27/25 14:22 DAILY PRN Constipation Ezetimibe 10 mg 12/28/24 09:00 12/29/24 09:30 Ezetimibe 10 Mg Tablet PO 12/28/25 08:59 10 mg DAILY FERN Administration Hydralazine HCl 100 mg 12/27/24 22:00 12/29/24 09:30 Hydralazine 50 Mg Tablet PO 12/27/25 21:59 100 mg TID FERN Administration Ipratropium [place] 0.5 mg 12/27/24 20:00 12/29/24 12:15 Ipratropium [place] 0.5 Mg/2.5 Ml Vial.Neb INHALATION 12/27/25 19:59 [...] By: <Electronically signed by EDWARD Field> 12/29/24 1648 [facility] Work Phone: [phone] Consult note Author Zoie Field [facility] CampusNote Date/TimeMarch 2024 5:[place] [id number] Hospitalist Consult Note Signed Patient: Delano Oliver MR#: [id number] : 1940 Acct:[id number] Age/Sex: 84 / M Adm Date: 5 Loc: Room: 3W8152-0 Type: ADM IN Attending Dr: Sotero Black MD Copies to: DO Sotero Lauren MD Lynn A Stackhouse-Roby, [employer]~ HPI DATE OF CONSULTATION: 12/28/24 REQUESTING PROVIDER: Sotero Black Consult Narrative Reason for Consult: COPD, CHF HPI: 84-year-old male with a past medical history significant for HFrEF EF 25%, hypertension, hyperlipidemia, PAF history ablation, chronic anticoagulation, dilated cardiomyopathy post AICD/pacemaker, CAD, COPD, pulmonary hypertension, MOLINA, diabetes, CKD 4, secondary hypothyroidism, hyperuricemia, coloncancer posthemicolectomy. Patient initially presented to [place] emergency department December 21 after sustaining a fall and subsequent right hip fracture. Transferred to [facility] for further management. Preoperative cardiac clearance obtained. [...] unless noted below or in HPI [facility] Medical History Former smoker quit at [...] Allergy (Unknown, Verified 12/19/24 08:50) Unknown Reaction Jiwokue-QFG-CyO Reductase Inhibitor (Rtwavpn-Sgl-Oeh Reductase Inhibitor) Allergy (Unknown, Verified 12/19/24 08:50) [...] mg PO DAILY #30 tabs 12/27/24 [Rx Oynjxoaeb97/14/25] azithromycin 250 mg tablet 500 mg (2 [...] mg 12/27/24 14:23 Bisacodyl 10 Mg Supp.Rect HI 12/27/25 14:22 DAILY PRN Constipation Budesonide/Formoterol Fumarate [...] 14:23 Docusate Enema 283 Mg/5 Ml Enema HI 12/27/25 14:22 DAILY PRN Constipation Ezetimibe 10 mg 12/28/24 09:00 12/28/24 09:20 Ezetimibe 10 Mg Tablet PO 12/28/25 08:59 10 mg DAILY FERN Administration Hydralazine HCl 100 mg 12/27/24 22:00 12/28/24 14:52 Hydralazine 50 Mg Tablet PO 12/27/25 21:59 100 mg TID FERN Administration Ipratropium [place] 0.5 mg 12/27/24 20:00 12/28/24 14:49 Ipratropium [place] 0.5 Mg/2.5 Ml Vial.Neb INHALATION 12/27/25 19:59 [...] % (Auto) N/A, Lymph % (Auto) N/A, Routt % (Auto) N/A, Eos % (Auto) N/A,Baso % (Auto) N/A, Nucleat RBC Rel Count N/A, Neut # (Auto) N/A, Lymph # (Auto) N/A, Routt # (Auto) N/A, Eos # (Auto) N/A, [...] By: <Electronically signed by EDWARD Field> 12/28/24 1713 [facility] Work Phone: [phone] Progress note Author Zahida Flowers [facility] CampusNote Date/TimeMarch 2024 2:44pm[place] [address] Nephrology Progress Note Signed Patient: Delano Oliver MR#: [id number] : 1940 Acct:[id number] Age/Sex: 84 / M Adm Date: 5 Loc: Room: [address] [place] [address] Type: ADM IN Attending Dr: Sotero Black [...] Skin: No rashes , warm to touch POLLS OR SURVEYS INTERVIEWER: Awake,Alert, following simple command Musculoskeletal: No swelling [...] 100 Mg Tablet) 100 mg PO DAILY [facility] Stop: 12/28/25 08:59 Last Admin: 12/28/24 09:19 Dose: 100 mg Amiodarone HCl (Amiodarone 200 Mg Tablet) 200 mg PO DAILY FERN Stop: 12/28/25 08:59 Last Admin: 12/28/24 09:20 Dose: 200 mg Amlodipine Besylate (Amlodipine 10 Mg Tablet) 10 mg PO DAILY FERN Stop: 12/28/25 08:59 Last Admin: 12/28/24 09:20 Dose: 10 mg Apixaban (Apixaban 2.5 Mg Tablet) 2.5 mg PO BID FREN Stop: 12/28/25 08:59 Last Admin: 12/28/24 09:19 Dose: 2.5 mg Ascorbic Acid (Ascorbic Acid 500 Mg Tablet) 500 mg PO DAILY FERN Stop: 12/28/25 08:59 Last Admin: 12/28/24 09:19 Dose: 500 mg Azithromycin (Azithromycin 250 Mg Tablet) 500 mg PO Q24H FERN Stop: 12/28/24 16:00 Last Admin: 12/27/24 16:14 Dose: 500 mg Bisacodyl (Bisacodyl 10 Mg Supp.Rect) 10 mg HI DAILY PRN PRN Reason: Constipation Stop: 12/27/25 [...] Enema 283 Mg/5 Ml Enema) 283 mg HI DAILY PRN PRN Reason: Constipation Stop: 12/27/25 14:22 Ezetimibe (Ezetimibe 10 Mg Tablet) 10 mg PO DAILY FERN Stop: 12/28/25 08:59 Last Admin: 12/28/24 09:20 Dose: 10 mg Hydralazine HCl (Hydralazine 50 Mg Tablet) 100 mg PO TID FERN Stop: 12/27/25 21:59 Last Admin: 12/28/24 09:20 Dose: 100 mg Ipratropium [place] (Ipratropium [place] 0.5 Mg/2.5 Ml Vial.Neb) 0.5 mg INHALATION QID.RESP FERN Stop: 12/27/25 19:59 Last Admin: 12/28/24 11:40 Dose: Not Given Isosorbide Dinitrate (Isosorbide Dinitrate 10 Mg Tablet) 10 mg PO TID [facility] Stop: 12/27/25 21:59 Last Admin: 12/28/24 09:23 Dose: 10 mg Lactulose (Lactulose 20 Gm/30 Ml Udc) 30 gm PO DAILY PRN PRN Reason: Constipation Stop: 12/27/25 14:22 Metoprolol Succinate (Metoprolol Succinate 100 Mg Tab.Er.24h) 100 mg PO DAILY [facility] Stop: 12/28/25 08:59 Last Admin: 12/28/24 09:20 [...] 17 Gm Powd.Pack) 17 gm PO DAILY [facility] Stop: 12/28/25 08:59 Last Admin: 12/28/24 09:20 [...] 10 Ml Syringe) 10 ml IV-PUSH Q8H [facility] Stop: 12/28/25 05:59 Last Admin: 12/28/24 05:35 Dose: 10 ml Vitamin D (Cholecalciferol 125 Mcg (5,000 Units) Capsule) 125 mcg PO DAILY [facility] Stop: 12/28/25 08:59 Last Admin: 12/28/24 09:20 Dose: 125 mcg Allergies simvastatin Allergy (Unknown, Verified 12/19/24 08:50) Unknown Reaction Kdmvhqd-LCC-CpS Reductase Inhibitor (Kfkvakt-Nmq-Xur Reductase Inhibitor) Allergy (Unknown, Verified 12/19/24 08:50) [...] signed by Zahida Flowers MD> 12/28/24 1444 [facility] Work Phone: [phone] History and physical note Author Sotero Black [facility] CampusNote Date/TimeMarch 2024 12:[place]pmL[place] [phone] Physiatry (Rehab) H&P Signed Patient: Delano Oliver MR#: [id number] : 1940 Acct:[id number] Age/Sex: 84 / M Adm Date: 5 Loc: 5T Room: [address] [place] [address] Type: ADM IN Attending Dr: Sotero Black [...] He is cleared to resume ittoday. [facility] Medical History Former smoker quit at [...] Allergy (Unknown, Verified 12/19/24 08:50) Unknown Reaction Fowkbxj-FQN-QeO Reductase Inhibitor (Oxegsyw-Feg-Frh Reductase Inhibitor) Allergy (Unknown, Verified 12/19/24 08:50) [...] mg PO DAILY #30 tabs 12/27/24 [Rx Qnbdpnaet55/14/25] azithromycin 250 mg tablet 500 mg (2 [...] Bisacodyl (Bisacodyl 10 Mg Supp.Rect) 10 mg HI DAILY PRN PRN Reason: Constipation Stop: 12/27/25 [...] Enema 283 Mg/5 Ml Enema) 283 mg HI DAILY PRN PRN Reason: Constipation Stop: 12/27/25 14:22 Ezetimibe (Ezetimibe 10 Mg Tablet) 10 mg PO DAILY FERN Stop: 12/28/25 08:59 Hydralazine HCl (Hydralazine 50 Mg Tablet) 100 mg PO TID FERN Stop: 12/27/25 21:59 Ipratropium [place] (Ipratropium [place] 0.5 Mg/2.5 Ml Vial.Neb) 0.5 mg INHALATION QID.RESP FERN Stop: 12/27/25 19:59 Isosorbide Dinitrate (Isosorbide Dinitrate 10 Mg Tablet) 10 mg PO TID FERN Stop: 12/27/25 21:59 Lactulose (Lactulose 20 Gm/30 Ml Udc) 30 gm PO DAILY PRN PRN Reason: Constipation Stop: 12/27/25 14:22 Metoprolol Succinate (Metoprolol Succinate 100 Mg Tab.Er.24h) 100 mg PO DAILY FERN Stop: 12/28/25 08:59 Oxycodone HCl (Oxycodone Ir 5 Mg Tablet) 5 mg PO Q4HR PRN PRN Reason: Pain Scale 4 - 7 Oxycodone HCl (Oxycodone Ir 5 Mg Tablet) 10 mg PO Q4HR PRN PRN Reason: Pain Scale 8 - 10 Polyethylene Glycol (Polyethylene Glycol 3350 17 Gm Powd.Pack) 17 gm PO DAILY FERN Stop: 12/28/25 08:59 Sennosides (Sennosides 8.6 Mg [...] 14 days Expected Discharge Destination: Home Rehabilitation [facility]: 05.26 Primary Diagnosis: as above Patient?s/Family?s anticipated [...] 24 hour daily monitoring and intervention from Cvt Rn as well as other consulting physicians including internal medicine as well as 24 hour daily boat mechanic nursing - for medical safe / optimal [...] equipment to enhance the patient's a functional scientology Encourage deep breathing exercises and incentive spirometry [...] diabetes mellitus with hyperglycemia: Qualifiers: Diabetes mellitus ad terminal makeup operator insulin use: without ad terminal makeup operator use Qualified Code(s): 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 Black, on the day of encounter, within 24hours of rehab admission, reviewed the history and the relevant portions of the chart, including current orders, alliedhealth and clinical science consultant notes, labs/imaging and performed mckenna elements of exam and I formulated the plan of care and facilitated the medical decision making. Documented By: Sotero Black MD 12/27/24 8203 Signed By: <Electronically signed by Sotero Black MD> 12/28/24 [facility]1 [facility] Work Phone: 1(677) 283-664303-13-2025 Progress note Author Emile Reynolds [facility] Date/TimeMarch 2024 1:[address] [place] [address] Hospitalist Progress Note Signed Patient: Delano Oliver MR#: [id number] : 1940 Acct:[id number] Age/Sex: 84 / M Adm Date: 5 Loc: Room: 6X8242-6 Type: ADM IN Attending Dr: Emile Reynolds [...] Allergy (Unknown, Verified 12/19/24 08:50) Unknown Reaction Adruxct-CNJ-RhU Reductase Inhibitor (Srlsoqk-Zjz-Rtn Reductase Inhibitor) Allergy (Unknown, Verified 12/19/24 08:50) [...] signed by Emile Reynolds DO> 12/26/24 1331 [facility] Work Phone: 1(855) 876-850503-13-2025 Progress note Author Zahida Flowers [facility] Date/TimeMarch 2024 12:[address] [place] [address] Nephrology Progress Note Signed Patient: Delano Oliver MR#: [id number] : 1940 Acct:[id number] Age/Sex: 84 / M Adm Date: 5 Loc: 4N Room: 4G3686-9 Type: ADM IN Attending Dr: Emile Reynolds [...] Skin: No rashes , warm to touch POLLS OR SURVEYS INTERVIEWER: Awake,Alert, following simple command Musculoskeletal: No swelling [...] 200 Mg Tablet) 200 mg PO DAILY [facility] Stop: 12/22/25 08:59 Last Admin: 12/26/24 08:11 Dose: 200 mg Amlodipine Besylate (Amlodipine 10 Mg Tablet) 10 mg PO DAILY [facility] Stop: 12/22/25 08:59 Last Admin: 12/24/24 08:38 Dose: Not Given Amoxicillin/Clavulanate Potassium (Amoxicillin/Clav 500-125 Mg Tablet) 1 tab POBID [facility] Stop: 12/28/24 20:59 Last Admin: 12/26/24 08:11 Dose: 1 tab Ascorbic Acid (Ascorbic Acid 500 Mg Tablet) 500 mg PO DAILY [facility] Stop: 12/23/25 08:59 Last Admin: 12/26/24 08:11 Dose: 500 mg Azithromycin (Azithromycin 250 Mg Tablet) 500 mg PO Q24H [facility] Stop: 12/28/24 23:00 Last Admin: 12/25/24 16:38 Dose: 500 mg Calcium Carbonate (Calcium Carbonate/Vitamin D3 500 Mg/200 Unit Tablet) 1 tab PO TID.WITH.MEALS [facility] Stop: 12/22/25 11:59 Last Admin: 12/26/24 11:21 Dose: 1 tab Diphenhydramine HCl (Diphenhydramine 25 Mg Capsule) 25 mg PO Q6H PRN PRN Reason: Itching Stop: 12/23/25 13:12 Docusate Sodium (Docusate 100 Mg Capsule) 200 mg PO BID PRN PRN Reason: Constipation Stop: 12/21/25 22:29 Docusate Sodium (Docusate 100 Mg Capsule) 100 mg PO BID [facility] Stop: 12/23/25 20:59 Last Admin: 12/26/24 08:10 Dose: 100 mg Fluticasone/Umeclidinium/Vilanterol (Fluticas/Umeclidin/Vilanter 200-62.5-25 Mcg28 Puff Inhaler *Nf*) 1 puff INHALATION DAILY [facility] Stop: 12/23/25 08:59 Last Admin: 12/26/24 10:38 Dose: 1 puff Furosemide (Furosemide 80 Mg Tablet) 80 mg PO DAILY [facility] Stop: 12/25/25 10:14 Last Admin: 12/26/24 08:11 Dose: 80 mg Hydralazine HCl (Hydralazine 20 Mg/Ml Vial) 10 mg IV-PUSH Q4H PRN PRN Reason: if SBP > 185 Stop: 12/21/25 22:29 Hydralazine HCl (Hydralazine 50 Mg Tablet) 100 mg PO TID [facility] Stop: 12/22/25 08:59 Last Admin: 12/26/24 08:12 [...] 10 Mg Tablet) 10 mg PO TID [facility] Stop: 12/22/25 08:59 Last Admin: 12/26/24 08:11 Dose: 10 mg Lidocaine HCl (Lidocaine 1% 50 Ml Vial) 0.1 ml INTRADERMA PREOP PRN PRN Reason: Venipuncture x 1 Dose Magnesium Hydroxide (Magnesium Hydroxide Susp 30 Ml Udc) 30 ml PO DAILY PRN PRN Reason: Constipation Stop: 12/22/25 11:11 Metoprolol Succinate (Metoprolol Succinate 100 Mg Tab.Er.24h) 100 mg PO DAILY [facility] Stop: 12/22/25 08:59 Last Admin: 12/26/24 08:11 Dose: 100 mg Multivitamins (Multivitamin 1 Tab Tablet) 1 tab PO DAILY [facility] Stop: 12/23/25 08:59 Last Admin: 12/26/24 08:10 [...] 17 Gm Powd.Pack) 17 gm PO DAILY [facility] Stop: 12/22/25 08:59 Last Admin: 12/26/24 08:10 Dose: 17 gm Sennosides (Sennosides 8.6 Mg Tablet) 17.2 mg PO BID [facility] Stop: 12/22/25 08:59 Last Admin: 12/26/24 08:11 Dose: 17.2 mg Sodium Chloride (Sodium Chloride 0.9 % 10 Ml Syringe) 0 ml IV-PUSH PRN PRN PRN Reason: Flush Stop: 12/22/25 11:11 Allergies simvastatin Allergy (Unknown, Verified 12/19/24 08:50) Unknown Reaction Jfnkarm-BEH-KdX Reductase Inhibitor (Yqcmahd-Xoh-Dqx Reductase Inhibitor) Allergy (Unknown, Verified 12/19/24 08:50) [...] mellitus with hyperglycemia: Assessment/Problem Details: He has wfu-mcdvgtx-znnxkpzfk type 2 diabetes mellitus currently on diet [...] signed by Zahida Flowers MD> 12/26/24 1231 [facility] Work Phone: 1(612) 304-127203-13-2025 [place] [address] Hospitalist Progress Note Signed Patient: Delano Oliver MR#: [id number] : 1940 Acct:[id number] Age/Sex: 84 / M Adm Date: 5 Loc: Room: 3L5461-3 Type: ADM IN Attending Dr: Emile Reynolds [...] Allergy (Unknown, Verified 12/19/24 08:50) Unknown Reaction Feyilye-LLT-TnJ Reductase Inhibitor (Wtitetr-Jzr-Zam Reductase Inhibitor) Allergy (Unknown, Verified 12/19/24 08:50) [...] DO 12/26/24 1324 Signed By: 12/26/24 1331 [facility]03-13-2025 [place] [id number] Nephrology Progress Note Signed Patient: Delano Oliver MR#: [id number] : 1940 Acct:[id number] Age/Sex: 84 / M Adm Date: 5 Loc: 4N Room: 6D6894-0 Type: ADM IN Attending Dr: Emile Reynolds [...] Skin: No rashes , warm to touch POLLS OR SURVEYS INTERVIEWER: Awake,Alert, following simple command Musculoskeletal: No swelling [...] 100 Mg Tablet) 100 mg PO DAILY [facility] Stop: 12/22/25 08:59 Last Admin: 12/26/24 08:10 Dose: 100 mg Amiodarone HCl (Amiodarone 200 Mg Tablet) 200 mg PO DAILY [facility] Stop: 12/22/25 08:59 Last Admin: 12/26/24 08:11 Dose: 200 mg Amlodipine Besylate (Amlodipine 10 Mg Tablet) 10 mg PO DAILY [facility] Stop: 12/22/25 08:59 Last Admin: 12/24/24 08:38 Dose: Not Given Amoxicillin/Clavulanate Potassium (Amoxicillin/Clav 500-125 Mg Tablet) 1 tab POBID [facility] Stop: 12/28/24 20:59 Last Admin: 12/26/24 08:11 [...] Mg/200 Unit Tablet) 1 tab PO TID.WITH.MEALS [facility] Stop: 12/22/25 11:59 Last Admin: 12/26/24 11:21 Dose: 1 tab Diphenhydramine HCl (Diphenhydramine 25 Mg Capsule) 25 mg PO Q6H PRN PRN Reason: Itching Stop: 12/23/25 13:12 Docusate Sodium (Docusate 100 Mg Capsule) 200 mg PO BID PRN PRN Reason: Constipation Stop: 12/21/25 22:29 Docusate Sodium (Docusate 100 Mg Capsule) 100 mg PO BID [facility] Stop: 12/23/25 20:59 Last Admin: 12/26/24 08:10 Dose: 100 mg Fluticasone/Umeclidinium/Vilanterol (Fluticas/Umeclidin/Vilanter 200-62.5-25 Mcg28 Puff Inhaler *Nf*) 1 puff INHALATION DAILY [facility] Stop: 12/23/25 08:59 Last Admin: 12/26/24 10:38 Dose: 1 puff Furosemide (Furosemide 80 Mg Tablet) 80 mg PO DAILY [facility] Stop: 12/25/25 10:14 Last Admin: 12/26/24 08:11 [...] 10 Mg Tablet) 10 mg PO TID [facility] Stop: 12/22/25 08:59 Last Admin: 12/26/24 08:11 Dose: 10 mg Lidocaine HCl (Lidocaine 1% 50 Ml Vial) 0.1 ml INTRADERMA PREOP PRN PRN Reason: Venipuncture x 1 Dose Magnesium Hydroxide (Magnesium Hydroxide Susp 30 Ml Udc) 30 ml PO DAILY PRN PRN Reason: Constipation Stop: 12/22/25 11:11 Metoprolol Succinate (Metoprolol Succinate 100 Mg Tab.Er.24h) 100 mg PO DAILY [facility] Stop: 12/22/25 08:59 Last Admin: 12/26/24 08:11 Dose: 100 mg Multivitamins (Multivitamin 1 Tab Tablet) 1 tab PO DAILY [facility] Stop: 12/23/25 08:59 Last Admin: 12/26/24 08:10 [...] Allergy (Unknown, Verified 12/19/24 08:50) Unknown Reaction Nbdxetm-VVM-QnE Reductase Inhibitor (Sflvggv-Nol-Ili Reductase Inhibitor) Allergy (Unknown, Verified 12/19/24 08:50) [...] mellitus with hyperglycemia: Assessment/Problem Details: He has coi-trrmqkx-gwwrpezxg type 2 diabetes mellitus currently on diet [...] Flowers MD 12/26/24 1230 Signed By: 12/26/[address] [place], [place] 9396003-12-2025 Consult note Author Clyde Bedolla [facility] Date/TimeMarch 2024 2:07[place] [address] Physiatry (Rehab) Consult Note Signed Patient: Delano Oliver MR#: [id number] : 1940 Acct:[id number] Age/Sex: 84 / M Adm Date: 5 Loc: Room: [address] [place] [address] Type: ADM IN Attending Dr: Emile Reynolds [...] baseline cr 2.7 who presented to the [facility] following a fall from a step [...] unless noted below or in HPI [facility] Medical History (Updated 12/24/24 @ 15:28 [...] Allergy (Unknown, Verified 12/19/24 08:50) Unknown Reaction Ytbpbgr-CGV-PgE Reductase Inhibitor (Ctvwipr-Hec-Rig Reductase Inhibitor) Allergy (Unknown, Verified 12/19/24 08:50) [...] % (Auto) 79.2 Lymph % (Auto) 9.0 Routt % (Auto) 10.2 Eos % (Auto) 1.4 Baso % (Auto) 0.2 Nucleat RBC Rel Count 0.1 Neut # (Auto) 6.3 Lymph # (Auto) 0.7 L Routt # (Auto) 0.8 Eos # (Auto) 0.1 [...] diabetes mellitus with hyperglycemia: Qualifiers: Diabetes mellitus ad terminal makeup operator insulin use: without ad terminal makeup operator use Qualified Code(s): 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 I completed a substantive portion of this encounter, the medical decision makingportion of this note in its entirety, including Allied health note review, nursing note review, clinical science consultant note review,discussion with nursing and case management, and more than 50% of my time was spent on counseling and coordinationof care, time spent 50 minutes Documented By: Clyde Bedolla MD 1323 Signed By: <Electronically signed by Clyde Bedolla MD> 12/25/24 1408 [facility] Work Phone: 1(956) 622-108103-12-2025 Progress note Author Emile Reynolds [facility] Date/TimeMarch 2024 12:17[place] [address] Hospitalist Progress Note Signed Patient: Delano Oliver MR#: [id number] : 1940 Acct:[id number] Age/Sex: 84 / M Adm Date: 5 Loc: 4N Room: [address] [place] [address] Type: ADM IN Attending Dr: Emile Reynolds [...] Allergy (Unknown, Verified 12/19/24 08:50) Unknown Reaction Toslywk-GOT-CkJ Reductase Inhibitor (Dgjgkqd-Pdk-Jnc Reductase Inhibitor) Allergy (Unknown, Verified 12/19/24 08:50) [...] 1213 Signed By: <Electronically signed by Emile Reynolds, > 12/25/24 1217 [facility] Work Phone: 1(512) 502-891103-12-2025 [place] [address] Physiatry (Rehab) Consult Note Signed Patient: Delano Olivre MR#: [id number] : 1940 Acct:[id number] Age/Sex: 84 / M Adm Date: 5 Loc: Room: [address] [place] [address] Type: ADM IN Attending Dr: Emile Reynolds [...] baseline cr 2.7 who presented to the [facility] following a fall from a step [...] unless noted below or in HPI [facility] Medical History (Updated 12/24/24 @ 15:28 [...] Allergy (Unknown, Verified 12/19/24 08:50) Unknown Reaction Rxhzqsy-YKO-CdF Reductase Inhibitor (Xuszroi-Mwl-Vpm Reductase Inhibitor) Allergy (Unknown, Verified 12/19/24 08:50) [...] % (Auto) 79.2 Lymph % (Auto) 9.0 Routt % (Auto) 10.2 Eos % (Auto) 1.4 Baso % (Auto) 0.2 Nucleat RBC Rel Count 0.1 Neut # (Auto) 6.3 Lymph # (Auto) 0.7 L Routt # (Auto) 0.8 Eos # (Auto) 0.1 [...] diabetes mellitus with hyperglycemia: Qualifiers: Diabetes mellitus assisted insulin use: without assisted use Qualified Code(s): 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 I completed a substantive portion of this encounter, the medical decision makingportion of this note in its entirety, including Allied health note review, nursing note review, clinical science consultant note review,discussion with nursing and case management, and more than 50% of my time was spent on counseling and coordinationof care, time spent 50 minutes Documented By: Clyde Bedolla MD 1323 Signed By: 12/25/24 1407 [facility]03-12-2025 Progress note Author Zahida Flowers [facility] CampusNote Date/TimeMarch 2024 12:04[place] [address] Nephrology Progress Note Signed Patient: Delano Oliver MR#: [id number] : 1940 Acct:[id number] Age/Sex: 84 / M Adm Date: 5 Loc: Room: 3A7567-5 Type: ADM IN Attending Dr: Emile Reynolds [...] Skin: No rashes , warm to touch POLLS OR SURVEYS INTERVIEWER: Awake,Alert, following simple command Musculoskeletal: No swelling [...] 100 Mg Capsule) 100 mg PO BID [facility] Stop: 12/23/25 20:59 Last Admin: 12/25/24 08:41 Dose: 100 mg Fluticasone/Umeclidinium/Vilanterol (Fluticas/Umeclidin/Vilanter 200-62.5-25 Mcg28 Puff Inhaler *Nf*) 1 puff INHALATION DAILY [facility] Stop: 12/23/25 08:59 Last Admin: 12/25/24 08:42 Dose: 1 puff Furosemide (Furosemide 80 Mg Tablet) 80 mg PO DAILY [facility] Stop: 12/25/25 10:14 Last Admin: 12/25/24 11:33 Dose: 80 mg Hydralazine HCl (Hydralazine 20 Mg/Ml Vial) 10 mg IV-PUSH Q4H PRN PRN Reason: if SBP > 185 Stop: 12/21/25 22:29 Hydralazine HCl (Hydralazine 50 Mg Tablet) 100 mg PO TID [facility] Stop: 12/22/25 08:59 Last Admin: 12/25/24 08:40 [...] 10 Mg Tablet) 10 mg PO TID [facility] Stop: 12/22/25 08:59 Last Admin: 12/25/24 08:41 Dose: 10 mg Lidocaine HCl (Lidocaine 1% 50 Ml Vial) 0.1 ml INTRADERMA PREOP PRN PRN Reason: Venipuncture x 1 Dose Magnesium Hydroxide (Magnesium Hydroxide Susp 30 Ml Udc) 30 ml PO DAILY PRN PRN Reason: Constipation Stop: 12/22/25 11:11 Metoprolol Succinate (Metoprolol Succinate 100 Mg Tab.Er.24h) 100 mg PO DAILY [facility] Stop: 12/22/25 08:59 Last Admin: 12/25/24 08:40 Dose: 100 mg Multivitamins (Multivitamin 1 Tab Tablet) 1 tab PO DAILY [facility] Stop: 12/23/25 08:59 Last Admin: 12/25/24 08:41 [...] 17 Gm Powd.Pack) 17 gm PO DAILY [facility] Stop: 12/22/25 08:59 Last Admin: 12/25/24 08:39 Dose: 17 gm Sennosides (Sennosides 8.6 Mg Tablet) 17.2 mg PO BID [facility] Stop: 12/22/25 08:59 Last Admin: 12/25/24 08:39 Dose: 17.2 mg Sodium Chloride (Sodium Chloride 0.9 % 10 Ml Syringe) 0 ml IV-PUSH PRN PRN PRN Reason: Flush Stop: 12/22/25 11:11 Allergies simvastatin Allergy (Unknown, Verified 12/19/24 08:50) Unknown Reaction Fxaujir-AIU-LfV Reductase Inhibitor (Aimfbit-Nwa-Qrh Reductase Inhibitor) Allergy (Unknown, Verified 12/19/24 08:50) [...] mellitus with hyperglycemia: Assessment/Problem Details: He has rhj-zcqxbrq-naraeofwq type 2 diabetes mellitus currently on diet [...] signed by Zahida Flowers MD> 12/25/24 1204 [facility] Work Phone: 1([phone]) 591-583503-12-2025 Progress note Author Walker Soria [facility] Date/TimeMarch 2024 10:25[place] [id number] Orthopedic Progress Note Signed Patient: Delano Oliver MR#: [id number] : 1940 Acct:[id number] Age/Sex: 84 / M Adm Date: 5 Loc: 4N Room: [address] [place] [address] Type: ADM IN Attending Dr: Emile Reynolds [...] % (Auto) 79.2 Lymph % (Auto) 9.0 Routt % (Auto) 10.2 Eos % (Auto) 1.4 Baso % (Auto) 0.2 Nucleat RBC Rel Count 0.1 Neut # (Auto) 6.3 Lymph # (Auto) 0.7 L Routt # (Auto) 0.8 Eos # (Auto) 0.1 [...] <Electronically signed by MD Walker Soria> 12/25/24 1021 [facility] Work Phone: 1(336) 595-534403-12-2025 [place] [address] Hospitalist Progress Note Signed Patient: Delano Oliver MR#: [id number] : 1940 Acct:[id number] Age/Sex: 84 / M Adm Date: 5 Loc: Room: [address] [place] [address] Type: ADM IN Attending Dr: Emile Ryenolds DO Copies to: ~ Date of Service: [...] Allergy (Unknown, Verified 12/19/24 08:50) Unknown Reaction Hoqydxg-MWV-OfC Reductase Inhibitor (Hhohemt-Qem-Lqw Reductase Inhibitor) Allergy (Unknown, Verified 12/19/24 08:50) [...] DO 12/25/24 1213 Signed By: 12/25/24 1217 [facility]03-12-2025 Progress note Author Walker Soria [facility] Campus[facility] Date/TimeMarch 2024 10:[address] [address] Orthopedic Progress Note Signed Patient: Delano Oliver MR#: [id number] : 1940 Acct:[id number] Age/Sex: 84 / M Adm Date: 5 Loc: 4 Room: [address] [place] [address] Type: ADM IN Attending Dr: Emile Reynolds [...] % (Auto) 89.8 Lymph % (Auto) 3.3 Routt % (Auto) 6.6 Eos % (Auto) 0.1 Baso % (Auto) 0.2 Nucleat RBC Rel Count 0.0 Neut # (Auto) 11.3 H Lymph # (Auto) 0.4 L Routt # (Auto) 0.8 Eos # (Auto) 0.0 [...] 7.7 Neut % (Auto) Lymph % (Auto) Routt % (Auto) Eos % (Auto) Baso % (Auto) Nucleat RBC Rel Count Neut # (Auto) Lymph # (Auto) Routt # (Auto) Eos # (Auto) Baso # [...] and have these sent to our office [place] out 14 days postop Documented By: Walker Soria MD 12/24/24 1119 Signed By: <Electronically signed by MD Walker Soria> 12/25/24 1015 [facility] Work Phone: 1(457) 703-447003-12-2025 [place] [address] Nephrology Progress Note Signed Patient: Delano Oliver MR#: [id number] : 1940 Acct:[id number] Age/Sex: 84 / M Adm Date: 5 Loc: Room: [address] [place] [address] Type: ADM IN Attending Dr: Emile Reynolds [...] Skin: No rashes , warm to touch POLLS OR SURVEYS INTERVIEWER: Awake,Alert, following simple command Musculoskeletal: No swelling [...] 100 Mg Tablet) 100 mg PO DAILY [facility] Stop: 12/22/25 08:59 Last Admin: 12/25/24 08:41 Dose: 100 mg Amiodarone HCl (Amiodarone 200 Mg Tablet) 200 mg PO DAILY [facility] Stop: 12/22/25 08:59 Last Admin: 12/25/24 08:40 Dose: 200 mg Amlodipine Besylate (Amlodipine 10 Mg Tablet) 10 mg PO DAILY [facility] Stop: 12/22/25 08:59 Last Admin: 12/24/24 08:38 Dose: Not Given Amoxicillin/Clavulanate Potassium (Amoxicillin/Clav 500-125 Mg Tablet) 1 tab POBID [facility] Stop: 12/28/24 20:59 Last Admin: 12/25/24 08:40 [...] Mg/200 Unit Tablet) 1 tab PO TID.WITH.MEALS [facility] Stop: 12/22/25 11:59 Last Admin: 12/25/24 11:33 Dose: 1 tab Diphenhydramine HCl (Diphenhydramine 25 Mg Capsule) 25 mg PO Q6H PRN PRN Reason: Itching Stop: 12/23/25 13:12 Docusate Sodium (Docusate 100 Mg Capsule) 200 mg PO BID PRN PRN Reason: Constipation Stop: 12/21/25 22:29 Docusate Sodium (Docusate 100 Mg Capsule) 100 mg PO BID [facility] Stop: 12/23/25 20:59 Last Admin: 12/25/24 08:41 Dose: 100 mg Fluticasone/Umeclidinium/Vilanterol (Fluticas/Umeclidin/Vilanter 200-62.5-25 Mcg28 Puff Inhaler *Nf*) 1 puff INHALATION DAILY [facility] Stop: 12/23/25 08:59 Last Admin: 12/25/24 08:42 Dose: 1 puff Furosemide (Furosemide 80 Mg Tablet) 80 mg PO DAILY [facility] Stop: 12/25/25 10:14 Last Admin: 12/25/24 11:33 [...] 10 Mg Tablet) 10 mg PO TID [facility] Stop: 12/22/25 08:59 Last Admin: 12/25/24 08:41 Dose: 10 mg Lidocaine HCl (Lidocaine 1% 50 Ml Vial) 0.1 ml INTRADERMA PREOP PRN PRN Reason: Venipuncture x 1 Dose Magnesium Hydroxide (Magnesium Hydroxide Susp 30 Ml Udc) 30 ml PO DAILY PRN PRN Reason: Constipation Stop: 12/22/25 11:11 Metoprolol Succinate (Metoprolol Succinate 100 Mg Tab.Er.24h) 100 mg PO DAILY [facility] Stop: 12/22/25 08:59 Last Admin: 12/25/24 08:40 Dose: 100 mg Multivitamins (Multivitamin 1 Tab Tablet) 1 tab PO DAILY [facility] Stop: 12/23/25 08:59 Last Admin: 12/25/24 08:41 [...] Allergy (Unknown, Verified 12/19/24 08:50) Unknown Reaction Nnzwhtn-KTL-ZkF Reductase Inhibitor (Cygvuzz-Usd-Iaq Reductase Inhibitor) Allergy (Unknown, Verified 12/19/24 08:50) [...] mellitus with hyperglycemia: Assessment/Problem Details: He has dcx-apbrexq-tuqovqjug type 2 diabetes mellitus currently on diet [...] MD 12/25/24 1159 Signed By: 12/25/24 1204 [facility]03-12-2025 [place] [address] Orthopedic Progress Note Signed Patient: Delano Oliver MR#: [id number] : 1940 Acct:[id number] Age/Sex: 84 / M Adm Date: 5 Loc: Room: [address] [place] [address] Type: ADM IN Attending Dr: Emile Reynolds [...] % (Auto) 79.2 Lymph % (Auto) 9.0 Routt % (Auto) 10.2 Eos % (Auto) 1.4 Baso % (Auto) 0.2 Nucleat RBC Rel Count 0.1 Neut # (Auto) 6.3 Lymph # (Auto) 0.7 L Routt # (Auto) 0.8 Eos # (Auto) 0.1 [...] Soria MD 12/25/24 1024 Signed By: 12/25/[address] [place], [place] 9550303-12-2025 [place] [address] Orthopedic Progress Note Signed Patient: Delano Oliver MR#: [id number] : 1940 Acct:[id number] Age/Sex: 84 / M Adm Date: 5 Loc: Room: [address] [place] [address] Type: ADM IN Attending Dr: Emile Reynolds [...] % (Auto) 89.8 Lymph % (Auto) 3.3 Routt % (Auto) 6.6 Eos % (Auto) 0.1 Baso % (Auto) 0.2 Nucleat RBC Rel Count 0.0 Neut # (Auto) 11.3 H Lymph # (Auto) 0.4 L Routt # (Auto) 0.8 Eos # (Auto) 0.0 [...] 7.7 Neut % (Auto) Lymph % (Auto) Routt % (Auto) Eos % (Auto) Baso % (Auto) Nucleat RBC Rel Count Neut # (Auto) Lymph # (Auto) Routt # (Auto) Eos # (Auto) Baso # [...] and have these sent to our office [place] out 14 days postop Documented By: Walker Soria MD 12/24/24 1119 Signed By: 12/25/[address] [place], [place] 0788103-11-2025 Consult note Author Zahida Flowers [facility]Note Date/TimeMarch 2024 3:48pm[place] [address] Nephrology Consult Note Signed Patient: Delano Oliver MR#: [id number] : 1940 Acct:[id number] Age/Sex: 84 / M Adm Date: 5 Loc: Room: [address] [place] [address] Type: ADM IN Attending Dr: Emile Reynolds [...] Hereported that he has CKD and follows [facility] for CKD care. He reported longstanding [...] Dermatological: denies any itching or rash [facility] Medical History (Updated 12/24/24 @ 15:28 [...] Allergy (Unknown, Verified 12/19/24 08:50) Unknown Reaction Loohntz-KVS-GqN Reductase Inhibitor (Xsbfutz-Shh-Vaq Reductase Inhibitor) Allergy (Unknown, Verified 12/19/24 08:50) [...] 100 Mg Tablet) 100 mg PO DAILY [facility] Stop: 12/22/25 08:59 Last Admin: 12/24/24 08:37 Dose: 100 mg Amiodarone HCl (Amiodarone 200 Mg Tablet) 200 mg PO DAILY [facility] Stop: 12/22/25 08:59 Last Admin: 12/24/24 08:37 Dose: 200 mg Amlodipine Besylate (Amlodipine 10 Mg Tablet) 10 mg PO DAILY [facility] Stop: 12/22/25 08:59 Last Admin: 12/24/24 08:38 Dose: Not Given Amoxicillin/Clavulanate Potassium (Amoxicillin/Clav 500-125 Mg Tablet) 1 tab POBID [facility] Stop: 12/28/24 20:59 Ascorbic Acid (Ascorbic Acid [...] 100 Mg Capsule) 100 mg PO BID [facility] Stop: 12/23/25 20:59 Last Admin: 12/24/24 08:37 Dose: 100 mg Fluticasone/Umeclidinium/Vilanterol (Fluticas/Umeclidin/Vilanter 200-62.5-25 Mcg28 Puff Inhaler *Nf*) 1 puff INHALATION DAILY [facility] Stop: 12/23/25 08:59 Last Admin: 12/24/24 08:38 Dose: 1 puff Furosemide (Furosemide 80 Mg Tablet) 80 mg PO DAILY [facility] Stop: 12/24/25 12:14 Last Admin: 12/24/24 13:35 [...] Ml) 1,000 mls @ 70 mls/hr IV .[id number] [facility] Stop: 12/23/25 00:04 Last Admin: 12/24/24 06:38 Dose: Not Given Isosorbide Dinitrate (Isosorbide Dinitrate 10 Mg Tablet) 10 mg PO TID [facility] Stop: 12/22/25 08:59 Last Admin: 12/24/24 13:35 Dose: Not Given Lidocaine HCl (Lidocaine 1% 50 Ml Vial) 0.1 ml INTRADERMA PREOP PRN PRN Reason: Venipuncture x 1 Dose Magnesium Hydroxide (Magnesium Hydroxide Susp 30 Ml Udc) 30 ml PO DAILY PRN PRN Reason: Constipation Stop: 12/22/25 11:11 Metoprolol Succinate (Metoprolol Succinate 100 Mg Tab.Er.24h) 100 mg PO DAILY [facility] Stop: 12/22/25 08:59 Last Admin: 12/24/24 08:38 Dose: Not Given Multivitamins (Multivitamin 1 Tab Tablet) 1 tab PO DAILY [facility] Stop: 12/23/25 08:59 Last Admin: 12/24/24 08:37 [...] 17 Gm Powd.Pack) 17 gm PO DAILY [facility] Stop: 12/22/25 08:59 Last Admin: 12/24/24 08:38 [...] Skin: No rashes , warm to touch POLLS OR SURVEYS INTERVIEWER: Awake,Alert, following simple command Musculoskeletal: No swelling [...] Dominik Hamm M.D.12/23/2024 9:17 PM Dictation Location: [facility] Any impression(s) listed above is documentation that [...] mellitus with hyperglycemia: Assessment/Problem Details: He has npj-obxbsaa-tlnzjafsj type 2 diabetes mellitus currently on diet [...] question. Documented By: Zahida Flowers MD 12/24/24 3416 Signed By: <Electronically signed by Zahida Flowers MD> 12/24/24 4652 [facility] Work Phone: [phone]) [phone] Progress note Author Emile Reynolds [facility] CampusNote Date/TimeMarch 2024 2:12pm[place] [address] Hospitalist Progress Note Signed Patient: Delano Oliver MR#: [id number] : 1940 Acct:[id number] Age/Sex: 84 / M Adm Date: 5 Loc: 4N Room: [address] [place] [address] Type: ADM IN Attending Dr: Emile Reynolds [...] Allergy (Unknown, Verified 12/19/24 08:50) Unknown Reaction Twivhao-LVQ-SfC Reductase Inhibitor (Dvfwdeg-Vck-Tsr Reductase Inhibitor) Allergy (Unknown, Verified 12/19/24 08:50) [...] Lactated Ringers IV 12/23/25 00:00 Not Given .[id number] [facility] Sodium Chloride 1,000 mls @ 70 mls/hr 12/23/24 00:05 12/24/24 06:38 0.9% Sodium Chloride 1,000 Ml IV 12/23/25 00:04 Not Given .D03C29I [facility] Isosorbide Dinitrate 10 mg 12/22/24 09:00 12/24/24 [...] Tab.Er.24h PO 12/22/25 08:59 Not Given DAILY [facility] Multivitamins 1 tab 12/23/24 09:00 12/24/24 08:37 [...] <Electronically signed by Emile Reynolds DO> 12/24/24 [facility]2 [facility] Work Phone: [phone]) 647-772003-11-2025 [place] [address] Nephrology Consult Note Signed Patient: Delano Oliver MR#: [id number] : 1940 Acct:[id number] Age/Sex: 84 / M Adm Date: 5 Loc: 4N Room: [address] [place] [address] Type: ADM IN Attending Dr: Emile Reynolds [...] Hereported that he has CKD [facility]. He reported [...] Dermatological: denies any itching or rash [facility] Medical History (Updated 12/24/24 @ 15:28 [...] Allergy (Unknown, Verified 12/19/24 08:50) Unknown Reaction Yrgviyx-FQA-VwT Reductase Inhibitor (Cmxapan-Hny-Lri Reductase Inhibitor) Allergy (Unknown, Verified 12/19/24 08:50) [...] 80 Mg Tablet) 80 mg PO DAILY [facility] Stop: 12/24/25 12:14 Last Admin: 12/24/24 13:35 Dose: Not Given Hydralazine HCl (Hydralazine 20 Mg/Ml Vial) 10 mg IV-PUSH Q4H PRN PRN Reason: if SBP > 185 Stop: 12/21/25 22:29 Hydralazine HCl (Hydralazine 50 Mg Tablet) 100 mg PO TID [facility] Stop: 12/22/25 08:59 Last Admin: 12/24/24 13:35 [...] Ml) 1,000 mls @ 70 mls/hr IV .[id number] [facility] Stop: 12/23/25 00:04 Last Admin: 12/24/24 06:38 Dose: Not Given Isosorbide Dinitrate (Isosorbide Dinitrate 10 Mg Tablet) 10 mg PO TID [facility] Stop: 12/22/25 08:59 Last Admin: 12/24/24 13:35 Dose: Not Given Lidocaine HCl (Lidocaine 1% 50 Ml Vial) 0.1 ml INTRADERMA PREOP PRN PRN Reason: Venipuncture x 1 Dose Magnesium Hydroxide (Magnesium Hydroxide Susp 30 Ml Udc) 30 ml PO DAILY PRN PRN Reason: Constipation Stop: 12/22/25 11:11 Metoprolol Succinate (Metoprolol Succinate 100 Mg Tab.Er.24h) 100 mg PO DAILY [facility] Stop: 12/22/25 08:59 Last Admin: 12/24/24 08:38 Dose: Not Given Multivitamins (Multivitamin 1 Tab Tablet) 1 tab PO DAILY [facility] Stop: 12/23/25 08:59 Last Admin: 12/24/24 08:37 [...] 17 Gm Powd.Pack) 17 gm PO DAILY [facility] Stop: 12/22/25 08:59 Last Admin: 12/24/24 08:38 Dose: 17 gm Sennosides (Sennosides 8.6 Mg Tablet) 17.2 mg PO BID [facility] Stop: 12/22/25 08:59 Last Admin: 12/24/24 08:37 [...] Skin: No rashes , warm to touch POLLS OR SURVEYS INTERVIEWER: Awake,Alert, following simple command Musculoskeletal: No swelling [...] Dominik Hamm M.D.12/23/2024 9:17 PM Dictation Location: [place] [address] Any impression(s) listed above is documentation that [...] mellitus with hyperglycemia: Assessment/Problem Details: He has cse-snmalht-wyamotfnb type 2 diabetes mellitus currently on diet [...] question. Documented By: Zahida Flowers MD 12/24/24 151 Signed By: 12/24/24 1548 [facility]03-11-2025 Progress note Author Krysten Bowers [facility] CampusNote Date/TimeMarch 2024 1:04pm[place] [address] Cardiology Progress Note Signed Patient: Delano Oliver MR#: [id number] : 1940 Acct:[id number] Age/Sex: 84 / M Adm Date: 5 Loc: Room: [address] [place] [address] Type: ADM IN Attending Dr: Emile Reynolds DO Copies to: ~ Date of Service: 12/24/2024 Subjective Interval history: Mr. 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 Prior to the fall, he denied any chest pain, dyspnea, palpitations, lightheadedness or syncope. He follows with cardiology at [facility] and was last seen in October when [...] % (Auto) 89.8 Lymph % (Auto) 3.3 Routt % (Auto) 6.6 Eos % (Auto) 0.1 Baso % (Auto) 0.2 Nucleat RBC Rel Count 0.0 Neut # (Auto) 11.3 H Lymph # (Auto) 0.4 L Routt # (Auto) 0.8 Eos # (Auto) 0.0 [...] 7.7 Neut % (Auto) Lymph % (Auto) Routt % (Auto) Eos % (Auto) Baso % (Auto) Nucleat RBC Rel Count Neut # (Auto) Lymph # (Auto) Routt # (Auto) Eos # (Auto) Baso # [...] diabetes mellitus with hyperglycemia: Qualifiers: Diabetes mellitus ad terminal makeup operator insulin use: without assisted use Qualified Code(s): E11.65 - Type 2 [...] needed. - Follow up with cardiology at [facility]. Documented By: Krysten Boewrs MD 12/24/24 1255 Signed By: <Electronically signed by Krysten Bowers MD> 12/24/24 1304 [facility] Work Phone: 1(389) 547-616903-11-2025 [place] [address] Hospitalist Progress Note Signed Patient: Delano Oliver MR#: [id number] : 1940 Acct:[id number] Age/Sex: 84 / M Adm Date: 5 Loc: Room: [address] [place] [address] Type: ADM IN Attending Dr: Emile Reynolds [...] Allergy (Unknown, Verified 12/19/24 08:50) Unknown Reaction Edorgfy-NHO-CnB Reductase Inhibitor (Wozbrzu-Vct-Cbm Reductase Inhibitor) Allergy (Unknown, Verified 12/19/24 08:50) [...] Tablet PO 12/22/25 08:59 Not Given DAILY [facility] Amoxicillin/Clavulanate Potassium 1 tab 12/24/24 21:00 Amoxicillin/Clav [...] Tablet PO 12/22/25 11:59 1 tab TID.WITH.MEALS [facility] Administration Diphenhydramine HCl 25 mg 12/23/24 13:13 Diphenhydramine 25 Mg Capsule PO 12/23/25 13:12 Q6H PRN Itching Docusate Sodium 200 mg 12/21/24 22:30 Docusate 100 Mg Capsule PO 12/21/25 22:29 BID PRN Constipation Docusate Sodium 100 mg 12/23/24 21:00 12/24/24 08:37 Docusate 100 Mg Capsule PO 12/23/25 20:59 100 mg BID [facility] Administration Fluticasone/Umeclidinium/Vilanterol 1 puff 12/23/24 09:00 12/24/24 08:38 Fluticas/Umeclidin/Vilanter 200-62.5-25 Mcg 28 Puff Inhaler *Nf* INHALATION 12/23/25 08:59 1 puff DAILY [facility] Administration Furosemide 80 mg 12/24/24 12:15 12/24/24 13:35 Furosemide 80 Mg Tablet PO 12/24/25 12:14 Not Given DAILY [facility] Hydralazine HCl 10 mg 12/21/24 22:30 Hydralazine [...] Lactated Ringers IV 12/23/25 00:00 Not Given .[id number] [facility] Sodium Chloride 1,000 mls @ 70 mls/hr 12/23/24 00:05 12/24/24 06:38 0.9% Sodium Chloride 1,000 Ml IV 12/23/25 00:04 Not Given .[id number] [facility] Isosorbide Dinitrate 10 mg 12/22/24 09:00 12/24/24 13:35 Isosorbide Dinitrate 10 Mg Tablet PO 12/22/25 08:59 Not Given TID [facility] Lidocaine HCl 0.1 ml 12/23/24 08:00 Lidocaine [...] DO 12/24/24 1407 Signed By: 12/24/24 1412 [facility]03-11-2025 [place] [address] Cardiology Progress Note Signed Patient: Delano Oliver MR#: [id number] : 1940 Acct:[id number] Age/Sex: 84 / M Adm Date: 5 Loc: 4N Room: 4F1056-2 Type: ADM IN Attending Dr: Emile Reynolds DO Copies to: ~ Date of Service: 12/24/2024 Subjective Interval history: Mr. 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 Prior to the fall, he denied any chest pain, dyspnea, palpitations, lightheadedness or syncope. He follows with cardiology at [facility] and was last seen in October when [...] % (Auto) 89.8 Lymph % (Auto) 3.3 Routt % (Auto) 6.6 Eos % (Auto) 0.1 Baso % (Auto) 0.2 Nucleat RBC Rel Count 0.0 Neut # (Auto) 11.3 H Lymph # (Auto) 0.4 L Routt # (Auto) 0.8 Eos # (Auto) 0.0 [...] 7.7 Neut % (Auto) Lymph % (Auto) Routt % (Auto) Eos % (Auto) Baso % (Auto) Nucleat RBC Rel Count Neut # (Auto) Lymph # (Auto) Routt # (Auto) Eos # (Auto) Baso # [...] diabetes mellitus with hyperglycemia: Qualifiers: Diabetes mellitus ad terminal makeup operator insulin use: without ad terminal makeup operator use Qualified Code(s): E11.65 - Type 2 [...] needed. - Follow up with cardiology at [facility]. Documented By: Krysten Bowers MD 12/24/24 1255 Signed By: 12/24/24 1304 [facility]03-10-2025 Progress note Author Emile Reynolds [facility] CampusNote Date/TimeMarch 2024 4:15pm[place] [address] Hospitalist Progress Note Signed Patient: Delano Oliver MR#: [id number] : 1940 Acct:[id number] Age/Sex: 84 / M Adm Date: 5 Loc: 4N Room: 1D3259-2 Type: ADM IN Attending Dr: Emile Reynolds [...] Allergy (Unknown, Verified 12/19/24 08:50) Unknown Reaction Wkyiyfr-GRE-JuF Reductase Inhibitor (Zgaqcvg-Bre-Jps Reductase Inhibitor) Allergy (Unknown, Verified 12/19/24 08:50) [...] Tablet PO 12/22/25 08:59 Not Given DAILY [facility] Amiodarone HCl 200 mg 12/22/24 09:00 12/23/24 08:47 Amiodarone 200 Mg Tablet PO 12/22/25 08:59 Not Given DAILY [facility] Amlodipine Besylate 10 mg 12/22/24 09:00 12/23/24 08:48 Amlodipine 10 Mg Tablet PO 12/22/25 08:59 Not Given DAILY [facility] Ascorbic Acid 500 mg 12/23/24 09:00 12/23/24 08:48 Ascorbic Acid 500 Mg Tablet PO 12/23/25 08:59 Not Given DAILY [facility] Calcium Carbonate 1 tab 12/22/24 12:00 12/23/24 [...] Lactated Ringers IV 12/23/25 00:00 75 mls/hr .T48G20D [facility] Administration Sodium Chloride 1,000 mls @ 70 mls/hr 12/23/24 00:05 12/23/24 01:07 0.9% Sodium Chloride 1,000 Ml IV 12/23/25 00:04 Not Given .H35O91E [facility] Lactated Ringer's 1,000 mls @ 20 [...] Emile Reynolds DO 12/23/24 1609 Signed By: <Electronically signed by Emile Reynolds DO> 12/23/24 1615 [facility] Work Phone: [phone]) 719-856203-10-2025 [place] [address] Hospitalist Progress Note Signed Patient: Delano Oliver MR#: [id number] : 1940 Acct:[id number] Age/Sex: 84 / M Adm Date: 5 Loc: Room: [address] [place] [address] Type: ADM IN Attending Dr: Emile Reynolds [...] 12/23/24 14:25 12/23/24 14:25 12/23/24 14:25 12/23/24 14:12/23/24 [...] Allergy (Unknown, Verified 12/19/24 08:50) Unknown Reaction Hosqxpt-NWR-UtW Reductase Inhibitor (Ssvkdzn-Qlk-Vht Reductase Inhibitor) Allergy (Unknown, Verified 12/19/24 08:50) [...] Lactated Ringers IV 12/23/25 00:00 75 mls/hr .C09L16W [facility] Administration Sodium Chloride 1,000 mls @ 70 mls/hr 12/23/24 00:05 12/23/24 01:07 0.9% Sodium Chloride 1,000 Ml IV 12/23/25 00:04 Not Given .U36Q44Y [facility] Lactated Ringer's 1,000 mls @ 20 [...] Tablet PO 12/23/25 08:59 Not Given DAILY [facility] Ondansetron HCl 4 mg 12/22/24 11:12 12/23/24 [...] Powd.Pack PO 12/22/25 08:59 Not Given DAILY [facility] Sennosides 17.2 mg 12/22/24 09:00 12/23/24 08:48 [...] DO 12/23/24 1609 Signed By: 12/23/24 1615 [facility]03-10-2025 Reason for visit Narrative* Rehabilitation - Outpatient (Routine) - AuthorizedSpecialtyDiagnoses / ProceduresReferred By ContactReferred To ContactPhysical Therapy Diagnoses Right Hip Arthroplasty / Bone graft proximal femur, dos 12/23/24 / Left trochanteric Bursitis Procedures HI PHYSICAL THERAPY EVALUATION LOW COMPLEX 20 MINS HI OFFICE/OUTPATIENT NEW HIGH MDM 60 MINUTES Walker Soria MD [address] [place] [address] Phone: tel: fax: Kenny Clay, PT [address] [facility] [address] [place] [address] Phone: tel: fax: Referral IDStatusReasonStart DateExpiration DateVisits RequestedVisits [id number]/4/202512/1/20252020 [facility] [id number] Reason for visit Narrative* Rehabilitation - Outpatient (Routine) - AuthorizedSpecialtyDiagnoses / ProceduresReferred By ContactReferred To ContactPhysical Therapy Diagnoses Right Hip Arthroplasty / Bone graft proximal femur, dos 12/23/24 / Left trochanteric Bursitis Procedures HI PHYSICAL THERAPY EVALUATION LOW COMPLEX 20 MINS HI OFFICE/OUTPATIENT NEW HIGH MDM 60 MINUTES Walker Soria MD [address] [place] [address] Phone: tel: fax: Kenny Clay, PT [address] [facility] [address] [place] [address] Phone: tel: fax: Referral IDStatusReasonStart DateExpiration DateVisits RequestedVisits [id number]/4/202512/31/20252030 [facility] [id number] Reason for visit Narrative* Rehabilitation - Outpatient (Routine) - AuthorizedSpecialtyDiagnoses / ProceduresReferred By ContactReferred To ContactPhysical Therapy Diagnoses Right Hip Arthroplasty / Bone graft proximal femur, dos 12/23/24 / Left trochanteric Bursitis Procedures HI PHYSICAL THERAPY EVALUATION LOW COMPLEX 20 MINS HI OFFICE/OUTPATIENT NEW HIGH MDM 60 MINUTES Walker Soria MD [address] [place] [address] Phone: tel: fax: Kenny Clay, PT [address] [facility] [address] [place] [address] Phone: tel: fax: Referral IDStatusReasonStart DateExpiration DateVisits RequestedVisits [id number]/4/202512/31/20252035 [facility] [id number] History and physical note Author Sudha Sood [facility] CampusNote Date/TimeMarch 2024 7:47[place] [address] Hospitalist H&P Signed Patient: Delano Oliver MR#: [id number] : 1940 Acct:[id number] Age/Sex: 84 / M Adm Date: 5 Loc: Room: [address] [place] [address] Type: ADM IN Attending Dr: Jaye Jorgensen [...] disease withbaseline creatinine 2.7 and following with vision specialist. 10 systems are reviewed and are negative [...] records in the computer system reviewed [facility] Medical History Screening PSA (prostate specific [...] Allergy (Unknown, Verified 12/19/24 08:50) Unknown Reaction Wqyhbkg-VQL-McF Reductase Inhibitor (Xhxjvch-Tmi-Nlt Reductase Inhibitor) Allergy (Unknown, Verified 12/19/24 08:50) [...] 3 Documented By: Sudha Sood MD 12/21/24 4933 Signed By: <Electronically signed by Sudha Sood MD> 12/23/24 0747 [facility] Work Phone: [phone]) 970-489103-10-2025 [place] [address] Hospitalist H&P Signed Patient: Delano Oliver MR#: [id number] : 1940 Acct:[id number] Age/Sex: 84 / M Adm Date: 5 Loc: Room: [address] [place] [address] Type: ADM IN Attending Dr: Jaye Jorgensen [...] disease withbaseline creatinine 2.7 and following with vision specialist. 10 systems are reviewed and are negative [...] records in the computer system reviewed [facility] Medical History Screening PSA (prostate specific [...] Allergy (Unknown, Verified 12/19/24 08:50) Unknown Reaction Zzmcpjg-NUI-NeU Reductase Inhibitor (Ruqinzd-Uuj-Fus Reductase Inhibitor) Allergy (Unknown, Verified 12/19/24 08:50) [...] 3 Documented By: Sudha Sood MD 12/21/24 9652 Signed By: 12/23/24 0747 [facility]03-09-2025 Progress note Author Jaye Jorgensen [facility] CampusNote Date/TimeMarch 2024 8:21pm[place] [address] Hospitalist Progress Note Signed Patient: Delano Oliver MR#: [id number] : 1940 Acct:[id number] Age/Sex: 84 / M Adm Date: 5 Loc: Room: [address] [place] [address] Type: ADM IN Attending Dr: Jaye Jorgensen [...] Allergy (Unknown, Verified 12/19/24 08:50) Unknown Reaction Mnjxpag-FDP-JsH Reductase Inhibitor (Yjtfujk-Btt-Jsi Reductase Inhibitor) Allergy (Unknown, Verified 12/19/24 08:50) [...] 12/23/24 00:00 Lactated Ringers IV 12/23/25 00:00 .J62E57P [facility] Isosorbide Dinitrate 10 mg 12/22/24 09:00 12/22/24 [...] 1 Tab Tablet PO 12/23/25 08:59 DAILY [facility] Ondansetron HCl 4 mg 12/22/24 11:12 Ondansetron [...] ,CKD, HFrEF presented with mechanical fall to [facility] and transferred for right femoral neck fracture Right hip fracture Pain control Orthopedic was consulted, recommendation appreciated. For possible surgical treatment 12/23 [facility] Cardiology was consulted, recommendation appreciated. CKD Cr at baseline Documented By: Jaye Jorgensen MD 12/22/24 3211 Signed By: <Electronically signed by Jaye Jorgensen MD> 12/22/242020 [facility] Work Phone: [phone]) 338-493003-09-2025 [place] [address] Hospitalist Progress Note Signed Patient: Delano Oliver MR#: [id number] : 1940 Acct:[id number] Age/Sex: 84 / M Adm Date: 5 Loc: 4 Room: [address] [place] [address] Type: ADM IN Attending Dr: Jaye Jorgensen [...] Allergy (Unknown, Verified 12/19/24 08:50) Unknown Reaction Afqsmux-YQH-LtJ Reductase Inhibitor (Oxdhziq-Rct-Rcj Reductase Inhibitor) Allergy (Unknown, Verified 12/19/24 08:50) [...] 500 Mg Tablet PO 12/23/25 08:59 DAILY [facility] Budesonide/Formoterol Fumarate 2 puff 12/22/24 09:00 12/22/24 [...] 12/23/24 00:00 Lactated Ringers IV 12/23/25 00:00 .T52R63I [facility] Isosorbide Dinitrate 10 mg 12/22/24 09:00 12/22/24 [...] ,CKD, HFrEF presented with mechanical fall to [facility] and transferred for right femoral neck fracture Right hip fracture Pain control Orthopedic was consulted, recommendation appreciated. For possible surgical treatment 12/23 [facility] Cardiology was consulted, recommendation appreciated. CKD Cr at baseline Documented By: Jaye Jorgensen MD 12/22/241658 Signed By: 12/22/242020 [facility]03-09-2025 Consult note Author Krysten Bowers [facility] CampusNote Date/TimeMarch 2024 3:47pm[place] [address] Cardiology Consult Note Signed Patient: Delano Oliver MR#: [id number] : 1940 Acct:[id number] Age/Sex: 84 / M Adm Date: 5 Loc: 4N Room: [address] [place] [address] Type: ADM IN Attending Dr: Jaye Jorgensen MD Copies to: Yas Linda,MD Jaye Cruz MD~ Cardiology HPI History of Present Illness Consult Date: 12/22/24 HPI: Mr. 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 Prior to the fall, he denied any chest pain, dyspnea, palpitations, lightheadedness or syncope. He follows with cardiology at [facility] and was last seen in October when [...] biatrial enlargement, RVSP of 49 mmHg. [facility] Medical History Screening PSA (prostate specific [...] Allergy (Unknown, Verified 12/19/24 08:50) Unknown Reaction Gtgftfy-ZYK-JuQ Reductase Inhibitor (Rcjgdes-Jyk-Qcz Reductase Inhibitor) Allergy (Unknown, Verified 12/19/24 08:50) [...] Lymph # (Auto) 0.8 L (1.00-4.8) x10E3/uL Routt # (Auto) 0.9 H (0.0-0.8) x10E3/uL Eos [...] diabetes mellitus with hyperglycemia: Qualifiers: Diabetes mellitus assisted insulin use: without ad terminal makeup operator use Qualified Code(s): E11.65 - Type 2 [...] <Electronically signed by Krysten Bowers MD> 12/22/24 154 [facility] Work Phone: 1(423) 522-318603-09-2025 [place] [id number] Cardiology Consult Note Signed Patient: Delano Oliver MR#: [id number] : 1940 Acct:[id number] Age/Sex: 84 / M Adm Date: 5 Loc: 4N Room: 9S9251-0 Type: ADM IN Attending Dr: Jaye Jorgensen MD Copies to: DO Krysten Lauren MD Marwan Wassouf, MD~ Cardiology HPI History of Present Illness Consult Date: 12/22/24 HPI: Mr. 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 Prior to the fall, he denied any chest pain, dyspnea, palpitations, lightheadedness or syncope. He follows with cardiology at [facility] and was last seen in October when [...] biatrial enlargement, RVSP of 49 mmHg. [facility] Medical History Screening PSA (prostate specific [...] Allergy (Unknown, Verified 12/19/24 08:50) Unknown Reaction Rxbmwkc-KCP-BsM Reductase Inhibitor (Vwkblnr-Xed-Ssn Reductase Inhibitor) Allergy (Unknown, Verified 12/19/24 08:50) [...] Lymph # (Auto) 0.8 L (1.00-4.8) x10E3/uL Routt # (Auto) 0.9 H (0.0-0.8) x10E3/uL Eos [...] diabetes mellitus with hyperglycemia: Qualifiers: Diabetes mellitus assisted insulin use: without assisted use Qualified Code(s): E11.65 - Type 2 [...] MD 12/22/24 1538 Signed By: 12/22/24 1547 [facility]03-09-2025 Evaluation note* Diagnosis Onset Date Resolution Status Admit Date Chronic HFrEF (heart failure with reduce d ejection fraction) acuteMarch 2024 10:13pmFemoral neck fractureacuteMarch 2024 10:13pm A-fibinactiveMarch 2024 10:13pmAcute kidney injury superimposed on CKD inactiveMarch 2024 10:13pmAcute on chronic anemiainactiveMarch 2024 10:13pmAspiration pneumoniainactiveMarch 2024 10:13pmCoronary artery diseaseinactiveMarch 2024 10:13pmImpaired mobility and activities of daily livinginaOur [facility] 2024 10:13pmMucopurulent chronic bronchitisinactive December 21, 2024 10:13pmObstructive sleep apneainactive[facility] 2024 10:13pm Pacemakerinactive[facility] 2024 10:13pmParoxysmal atrial fibrillationinactive December 21, 2024 10:13pmPrimary hypertensioninactive[facility] 2024 10:13pm Pulmonary hypertensioninaOur [facility] 2024 10:13pmType 2 diabetes mellitus with hyperglycemiainactive[facility] 2024 10:13pmHypertensive chronic kidney disease with stage 1 through stage 4 chronic kideletedWilson [facility] 2024 10:13pm Stage 4 chronic kidney diseasedeletedWilson [facility] 2024 10:13pmChronic HFrEF (heart failure with reduced ejection fraction)acuteMarch 2024 2:06pmFemoral neck fractureacuteSaint [facility] 2024 2:06pmHypercholesteremiaacuteWilson [facility] 2024 2:06pmIron deficiency anemiaacuteSaint [facility] 2024 2:06pmNonischemic dilated cardiomyopathyacuteSaint [facility] 2024 2:06pmPositive fecal occult blood testacute December 27, 2024 2:06pmA-fibinactive[facility] 2024 2:06pmAcute kidney injury superimposed on CKDinactive[facility] 2024 2:06pmAcute on chronic anemia inactiveSaint [facility] 2024 2:06pmAspiration pneumoniainactive[facility] 2024 2:06pmCoronary artery diseaseinactive[facility] 2024 2:06pmImpaired mobility and activities of daily livinginactiveWilson [facility] 2024 2:06pmMalignant neoplasm of right coloninactive[facility] 2024 2:06pmMucopurulent chronic bronchitis inactiveSaint [facility] 2024 2:06pmParoxysmal atrial fibrillationinactiveWilson [facility] 2024 2:06pmType 2 diabetes mellitus with hyperglycemiainactive[facility] 2024 2:06pmHypertensive chronic kidney disease with stage 1 through stage 4 chronic kideletedSaint [facility]'S [facility] 2024 2:06pmStage 4 chronic kidney diseasedeletedMarch 2024 2:06pmFemoral neck fractureacuteApril 2024 9:53amStatus post hemiarthroplasty of right hipacuteApr2024 9:53amAnemia of renal disease acuteApril 2024 10:53amChronic [...] left hipacuteMay 2024 11:18amColon cancerdeletedMay 2024 1:52pm [facility] Work Phone: 1(311) 640-881703-06-2025 Evaluation note* Diagnosis Onset Date Resolution Status [...] visit, subsequentnoneactiveMarch 2024 8:49amScreening PSA (prostate specific antigen)noneactiveDecch 2024 8:49amA-fibacuteMarch 2024 10:13pmAcute kidney injury superimposed on CKDacuteMarch 2024 10:13pmAcute on chronic anemiaacuteDecch 2024 10:13pmAspiration pneumoniaacuteDec 2024 10:13pmChronic HFrEF (heart failure with reduced ejection fraction)acute December 21, 2024 10:13pmCoronary artery diseaseacuteMar 2024 10:13pm Femoral neck fractureacuteMarch 2024 10:13pmHypertensive chronic kidney disease with stage 1 through stage 4 chronic kiacuteMarch 2024 10:13pm Impaired mobility and activities of daily livingacuteWilson Health 2024 10:13pm Mucopurulent chronic bronchitisacuteMarch 2024 10:13pmObstructive sleep apneaacuteMarch 2024 10:13pmPacemakeracuteMarch 2024 10:13pmParoxysmal atrial fibrillationacuteMar 2024 10:13pmPrimary hypertensionacute[facility] 2024 10:13pmPulmonary hypertensionacute[facility] 2024 10:13pmStage 4 chronic kidney diseaseacuteSaint [facility] 2024 10:13pmType 2 diabetes mellitus with hyperglycemiaacuteSaint [facility] 2024 10:13pm [facility] Work Phone: 1([phone]) 824-702903-06-2025 Evaluation note* Diagnosis Onset Date Resolution Status Admit Date Chronic bronchitis, simple acuteMarch 2024 8:49amColon canceracuteMarch 2024 8:49amHypothyroidism due to medicationacuteMarch 2024 8:49amNonischemic dilated cardiomyopathy acuteMarch 2024 8:49amThyrotoxicosisacuteMarch 2024 8:49amChronic HFrEF (heart failure with reduced ejection fraction)inactiveMar 2024 8:49amObstructive sleep apneainactiveMarch 2024 8:49amParoxysmal atrial fibrillationinactiveMarch 2024 8:49amPrimary hypertensioninactiveMarch 2024 8:49amStage 4 chronic kidney diseaseinactiveMarch 2024 8:49amType 2 diabetes mellitus with hyperglycemiainactiveMarch 2024 8:49amMedicare annual wellness visit, subsequentnoneactiveMar 2024 8:49amScreening PSA (prostate specific antigen)noneactiveMarch 2024 8:49amFemoral neck fracture acuteMarch 2024 10:13pmA-fibinactiveMar 2024 10:13pmAcute kidney injury superimposed on CKDinactiveMarch 2024 10:13pmAcute on chronic anemia inactiveMar 2024 10:13pmAspiration pneumoniainactiveMar 2024 10:13pmChronic HFrEF (heart failure with reduced ejection fraction)inactiveWilson [facility] 2024 10:13pmCoronary artery diseaseinactiveMar 2024 10:13pm Hypertensive chronic kidney disease with stage 1 through stage 4 chronic ki inactiveMarch 2024 10:13pmImpaired mobility and activities of daily living inactiveMar 2024 10:13pmMucopurulent chronic bronchitisinactiveMarch 2024 10:13pmObstructive sleep apneainactiveMarch 2024 10:13pmPacemaker inactiveMarch 2024 10:13pmParoxysmal atrial fibrillationinactiveMarch 2024 10:13pmPrimary hypertensioninactiveMarch 2024 10:13pmPulmonary hypertensioninactiveMar 2024 10:13pmStage 4 chronic kidney disease inactiveMarch 2024 10:13pmType 2 diabetes mellitus with hyperglycemia inactiveMar 2024 10:13pmFemoral neck fractureacuteMarch 2024 2:06pm HypercholesteremiaacuteMarch 2024 2:06pmIron deficiency anemiaacuteMarch 2024 2:06pmMalignant neoplasm of right colonacuteMarch 2024 2:06pm Nonischemic dilated cardiomyopathyacuteMarch 2024 2:06pmPositive fecal occult blood testacuteMarch 2024 2:06pmA-fibinactiveMar 2024 2:06pmAcute kidney injury superimposed on CKDinactiveMarch 2024 2:06pm Acute on chronic anemiainactiveMar 2024 2:06pmAspiration pneumonia inactiveMarch 2024 2:06pmChronic HFrEF (heart failure with reduced ejection fraction)inactiveSaint [facility] 2024 2:06pmCoronary artery diseaseinactive December 27, 2024 2:06pmHypertensive chronic kidney disease with stage 1 through stage 4 chronic kiinactiveMar2024 2:06pmImpaired mobility and activities of daily livinginactiveSaint [facility]2024 2:06pmMucopurulent chronic bronchitisinactiveMar 2024 2:06pmParoxysmal atrial fibrillationinactive December 27, 2024 2:06pmStage 4 chronic kidney diseaseinactive[facility] 2024 2:06pmType 2 diabetes mellitus with hyperglycemiainactiveMar 2024 2:06pm [facility] Work Phone: 1([phone]) 290-382703-06-2025 Evaluation note* Diagnosis Onset Date Resolution Status Admit Date Chronic bronchitis, simple acuteMarch 2024 8:49amColon canceracuteMarch 2024 8:49amHypothyroidism due to medicationacuteMarch 2024 8:49amNonischemic dilated cardiomyopathy acuteMarch 2024 8:49amThyrotoxicosisacuteMarch 2024 8:49amChronic HFrEF (heart failure with reduced ejection fraction)inactiveMarch 2024 8:49amObstructive sleep apneainactiveMarch 2024 8:49amParoxysmal atrial fibrillationinactiveMar2024 8:49amPrimary hypertensioninactiveMarch 2024 8:49amStage 4 chronic kidney diseaseinactiveMarch 2024 8:49amType 2 diabetes mellitus with hyperglycemiainactiveMarch 2024 8:49amMedicare annual wellness visit, subsequentnoneactiveMarch 2024 8:49amScreening PSA (prostate specific antigen)noneactiveMarch 2024 8:49amFemoral neck fracture acuteMarch 2024 10:13pmA-fibinactiveMarch 2024 10:13pmAcute kidney injury superimposed on CKDinactiveMarch 2024 10:13pmAcute on chronic anemia inactiveMarch 2024 10:13pmAspiration pneumoniainactiveMar 2024 10:13pmChronic HFrEF (heart failure with reduced ejection fraction)inactiveMar 2024 10:13pmCoronary artery diseaseinactiveMar 2024 10:13pm Hypertensive chronic kidney disease with stage 1 through stage 4 chronic ki inactiveMarch 2024 10:13pmImpaired mobility and activities of daily living inactiveMar 2024 10:13pmMucopurulent chronic bronchitisinactiveMarch 2024 10:13pmObstructive sleep apneainactiveWilson [facility] 2024 10:13pmPacemaker inactiveMar 2024 10:13pmParoxysmal atrial fibrillationinactiveMar 2024 10:13pmPrimary hypertensioninactiveMar 2024 10:13pmPulmonary hypertensioninactive[facility] 2024 10:13pmStage 4 chronic kidney disease inactiveMarch 2024 10:13pmType 2 diabetes mellitus with hyperglycemia inactiveMarch 2024 10:13pmFemoral neck fractureacuteMarch 2024 2:06pm HypercholesteremiaacuteMarch 2024 2:06pmIron deficiency anemiaacuteMarch 2024 2:06pmMalignant neoplasm of right colonacuteMarch 2024 2:06pm Nonischemic dilated cardiomyopathyacuteMarch 2024 2:06pmPositive fecal occult blood testacuteMarch 2024 2:06pmA-fibinactiveMarch 2024 2:06pmAcute kidney injury superimposed on CKDinactiveMar 2024 2:06pm Acute on chronic anemiainactiveMar 2024 2:06pmAspiration pneumonia inactiveMarch 2024 2:06pmChronic HFrEF (heart failure with reduced ejection fraction)inactiveMarch 2024 2:06pmCoronary artery diseaseinactive December 27, 2024 2:06pmHypertensive chronic kidney disease with stage 1 through stage 4 chronic kiinactiveMar 2024 2:06pmImpaired mobility and activities of daily livinginactiveWilson [facility] 2024 2:06pmMucopurulent chronic bronchitisinactiveMar 2024 2:06pmParoxysmal atrial fibrillationinactive December 27, 2024 2:06pmStage 4 chronic kidney diseaseinactive[facility] 2024 2:06pmType 2 diabetes mellitus with hyperglycemiainactive[facility] 2024 2:06pm Femoral neck fractureacuteApril 2024 9:53amStatus post hemiarthroplasty of right [facility]acuteB[facility] 9:53am [facility] Work Phone: 1(571) 569-990503-06-2025 Evaluation note* Diagnosis Onset Date Resolution Status Admit Date Chronic bronchitis, simple acuteMarch 2024 8:49amChronic HFrEF (heart failure with reduced ejection fraction)acuteMarch 2024 8:49amColon canceracuteMarch 2024 8:49am Hypothyroidism due to medicationacuteMarch 2024 8:49amNonischemic dilated cardiomyopathyacuteMarch 2024 8:49amStage 4 chronic kidney diseaseacute December 19, 2024 8:49amThyrotoxicosisacuteMarch 2024 8:49amObstructive sleep apneainactive[facility] 2024 8:49amParoxysmal atrial fibrillationinactive[facility] 2024 8:49amPrimary hypertensioninactive[facility] 2024 8:49amType 2 diabetes mellitus with hyperglycemiainactive[facility] 2024 8:49amMedicare annual wellness visit, subsequentnoneactive[facility] 2024 8:49amScreening PSA (prostate specific antigen)noneactiveMarch 2024 8:49amChronic HFrEF (heart failure with reduced ejection fraction)acuteMarch 2024 10:13pmFemoral neck fractureacuteMarch 2024 10:13pmHypertensive chronic kidney disease with stage 1 through stage 4 chronic kiacuteMarch 2024 10:13pmStage 4 chronic kidney diseaseacuteMarch 2024 10:13pmA-fibinactiveMarch 2024 10:13pm Acute kidney injury superimposed on CKDinactiveMarch 2024 10:13pmAcute on chronic anemiainactiveMar 2024 10:13pmAspiration pneumoniainactiveMar 2024 10:13pmCoronary artery diseaseinactiveMar 2024 10:13pmImpaired mobility and activities of daily livinginactiveWilson Health 2024 10:13pm Mucopurulent chronic bronchitisinactiveMar 2024 10:13pmObstructive sleep apneainactiveMar 2024 10:13pmPacemakerinactiveMar 2024 10:13pm Paroxysmal atrial fibrillationinactive[facility] 2024 10:13pmPrimary hypertensioninactive[facility] 2024 10:13pmPulmonary hypertensioninactive[facility] 2024 10:13pmType 2 diabetes mellitus with hyperglycemiainactiveMar 2024 10:13pmChronic HFrEF (heart failure with reduced ejection fraction)acute December 27, 2024 2:06pmFemoral neck fractureacuteMarch 2024 2:06pm HypercholesteremiaacuteMarch 2024 2:06pmHypertensive chronic kidney disease with stage 1 through stage 4 chronic kiacuteMarch 2024 2:06pmIron deficiency anemiaacuteMarch 2024 2:06pmNonischemic dilated cardiomyopathy acuteMarch 2024 2:06pmPositive fecal occult blood testacuteMarch 2024 2:06pmStage 4 chronic kidney diseaseacuteMarch 2024 2:06pmA-fib inactiveMarch 2024 2:06pmAcute kidney injury superimposed on CKDinactive December 27, 2024 2:06pmAcute on chronic anemiainactiveMarch 2024 2:06pm Aspiration pneumoniainactiveMarch 2024 2:06pmCoronary artery disease inactiveMarch 2024 2:06pmImpaired mobility and activities of daily living inactiveMarch 2024 2:06pmMalignant neoplasm of right coloninactiveMarch 2024 2:06pmMucopurulent chronic bronchitisinactiveMarch 2024 2:06pm Paroxysmal atrial fibrillationinactiveMarch 2024 2:06pmType 2 diabetes mellitus with hyperglycemiainactiveMarch 2024 2:06pmFemoral neck fracture acuteApril 2024 9:53amStatus [...] with diabetic chronic kidney diseaseacuteApril 2024 10:53am [facility] Work Phone: 1(520) 388-925603-06-2025 Evaluation note* Diagnosis Onset Date Resolution Status [...] kidney diseasedeletedMarch 2024 8:49amMedicare annual wellness visit, subsequentnoneactive[facility] 2024 8:49amScreening PSA (prostate specific antigen)noneactiveMarch 2024 8:49amChronic HFrEF (heart failure with reduced ejection fraction)acuteMarch 2024 10:13pmFemoral neck fractureacuteMarch 2024 10:13pmA-fibinactiveMarch 2024 10:13pmAcute kidney injury superimposed on CKDinactiveMarch 2024 10:13pmAcute on chronic anemiainactive[facility] 2024 10:13pmAspiration pneumoniainactive[facility] 2024 10:13pmCoronary artery diseaseinactive[facility] 2024 10:13pmImpaired mobility and activities of daily livinginactive[facility] 2024 10:13pmMucopurulent chronic bronchitisinactive[facility] 2024 10:13pmObstructive sleep apneainaKeenan [facility] 2024 10:13pmPacemakerinactive[facility] 2024 10:13pmParoxysmal atrial fibrillationinactive[facility] 2024 10:13pmPrimary hypertensioninactive[facility] 2024 10:13pmPulmonary hypertensioninactive[facility] 2024 10:13pmType 2 diabetes mellitus with hyperglycemiainactive[facility] 2024 10:13pmHypertensive chronic kidney disease with stage 1 through stage 4 chronic kideletedMarch 2024 10:13pmStage 4 chronic kidney diseasedeletedSaint [facility] 20[facility] 10:13pmChronic HFrEF (heart failure with reduced ejection fraction)acuteMarch 2024 2:06pm Femoral neck fractureacuteMarch 2024 2:06pmHypercholesteremiaacuteMarch 2024 2:06pmIron deficiency anemiaacuteMarch 2024 2:06pmNonischemic dilated cardiomyopathyacuteMarch 2024 2:06pmPositive fecal occult blood testacuteMarch 2024 2:06pmA-fibinactiveMarch 2024 2:06pmAcute kidney injury superimposed on CKDinactiveMarch 2024 2:06pmAcute on chronic anemia inactiveMarch 2024 2:06pmAspiration pneumoniainactiveMarch 2024 2:06pmCoronary artery diseaseinactiveMarch 2024 2:06pmImpaired mobility and activities of daily livinginactiveMarch 2024 2:06pmMalignant neoplasm of right coloninactiveMarch 2024 2:06pmMucopurulent chronic bronchitis inactiveMarch 2024 2:06pmParoxysmal atrial fibrillationinactiveMarch 2024 2:06pmType 2 diabetes mellitus with hyperglycemiainactiveMarch 2024 2:06pmHypertensive chronic kidney disease with stage 1 through stage 4 chronic kideletedMarch 2024 2:06pmStage 4 chronic kidney diseasedeletedMarch 2024 2:06pmFemoral neck fractureacuteApril 2024 9:53amStatus post hemiarthroplasty of right hipacuteApr2024 9:53amAnemia of renal disease acuteApril 2024 10:53amChronic [...] dilated cardiomyopathyacute [place] 2024 1:59pmThyrotoxicosisacuteApril 2024 1:[address]pm [facility] Work Phone: 1(798) 639-907103-06-2025 Evaluation note* Diagnosis Onset Date Resolution Status Admit Date Chronic bronchitis, simple acuteMarch 2024 8:49amChronic HFrEF (heart failure with reduced ejection fraction)acuteMarch 2024 8:49amColon canceracuteMarch 2024 8:49am Hypothyroidism due to medicationacuteMarch 2024 8:49amNonischemic dilated cardiomyopathyacuteMarch 2024 8:49amThyrotoxicosisacuteMarch 2024 8:49amObstructive sleep apneainactiveMarch 2024 8:49amParoxysmal atrial fibrillationinactiveMarch 2024 8:49amPrimary hypertensioninactiveMarch 2024 8:49amType 2 diabetes mellitus with hyperglycemiainactiveMarch 2024 8:49amStage 4 chronic kidney diseasedeletedMar 2024 8:49amMedicare annual wellness visit, subsequentnoneactiveMar 2024 8:49amScreening PSA (prostate specific antigen)noneactiveMarch 2024 8:49amChronic HFrEF (heart failure with reduced ejection fraction)acuteSaint [facility] 20[facility] 10:13pmFemoral neck fractureacuteMarch 2024 10:13pmA-fibinactiveMarch 2024 10:13pmAcute kidney injury superimposed on CKDinactiveMarch 2024 10:13pmAcute on chronic anemiainactiveMar 2024 10:13pmAspiration pneumoniainactiveMar 2024 10:13pmCoronary artery diseaseinactiveMar 2024 10:13pmImpaired mobility and activities of daily livinginactiveWilson [facility] 2024 10:13pmMucopurulent chronic bronchitisinactiveMar 2024 10:13pmObstructive sleep apneainactive [facility] 2024 10:13pmPacemakerinactiveMar 2024 10:13pmParoxysmal atrial fibrillationinactiveMar 2024 10:13pmPrimary hypertensioninactiveMar 2024 10:13pmPulmonary hypertensioninactiveMar 2024 10:13pmType 2 diabetes mellitus with hyperglycemiainactive[facility] 2024 10:13pmHypertensive chronic kidney disease with stage [...] 2:06pmAcute on chronic anemia inactiveMarch 2024 2:06pmAspiration pneumoniainactiveMarch 2024 2:06pmCoronary artery diseaseinactiveMarch 2024 2:06pmImpaired mobility and activities of daily livinginactiveMar 2024 2:06pmMalignant neoplasm of right coloninactiveMarch 2024 2:06pmMucopurulent chronic bronchitis inactiveMarch 2024 2:06pmParoxysmal atrial fibrillationinactiveMarch 2024 2:06pmType 2 diabetes mellitus with hyperglycemiainactiveMarch 2024 2:06pmHypertensive chronic kidney disease with stage [...] medicationacuteApril 2024 1:59pmNonischemic dilated cardiomyopathyacute [place] 2024 1:59pmColon cancerdeletedMay 2024 9:34amFemoral neck fractureacuteMay 2024 11:18amStatus post hemiarthroplasty of right hip acuteMay 2024 11:18amTrochanteric bursitis, left hipacuteMay 2024 11:18am [facility] Work Phone: 1([phone]) 206-818702-19-2025 History of Present illness Narrative* MANUELA Riddle - 12/04/2024 1:00 PM EST Pt picked up supplies documented in this encounterPerry County Memorial [id number] NotePatient here for follow up DCCV on 10/17/[address] Degroot. Denies chest pain, SOB, palpitations, lightheadedness/syncope, and bleeding on Eliquis. Review of Systems Hematologic/Lymphatic: Bruises/bleeds easily. All other systems reviewed and are negative.[facility] 11-13-2024 NoteCardiovascular Medicine [place] [facility] SUBJECTIVE Chief Complaint Patient presents with [...] List Diagnosis Stage 3 chronic kidney disease ([facility]) Bacteremia Chronic systolic heart failure ([facility]) Dyslipidemia Edema of lower extremity Hyperlipidemia Hypertensive disorder Left ventricular systolic dysfunction Osteomyelitis of vertebra ([facility]HCC) Paroxysmal atrial flutter ([facility]) Proteinuria Type 2 diabetes mellitus ([facility]) COPD (chronic obstructive pulmonary disease) ([facility]) [facility]ilated cardiomyopathy ([facility]) Statin intolerance Stage 4 chronic kidney disease ([facility]HCC) Chronic bronchitis, simple ([facility]HCC) Chronic venous insufficiency Constipation Hyperlipidemia type II Hypothyroidism due to medication Impaired mobility and activities of daily living Iron deficiency anemia Colon cancer ([facility]HCC) Mucopurulent chronic bronchitis ([facility]) Obstructive sleep apnea Pacemaker A-fib ([facility]) Psoas abscess, right ([facility]) Pulmonary hypertension ([facility]) Thyrotoxicosis Type 2 diabetes mellitus with hyperglycemia ([facility]) Hypersomnia Primary insomnia Past Medical History: Diagnosis Date Arrhythmia CHF (congestive heart failure) ([facility]) Chronic kidney disease Family History Problem Relation Name Age of Onset Diabetes Mother Heart disease Father Glaucoma Brother Diabetes Maternal Grandmother Clotting disorder Other Social History Tobacco Use Smoking status: Former Current packs/day: 0.00 Types: Cigarettes Quit date: 1982 Years since quittin.1 Smokeless tobacco: Never Substance Use Topics Alcohol use: Yes Comment: OCCASIONAL Drug use: Never Allergies Allergen Reactions Atfnlda-Dzw-Nbf Reductase Inhibitors Tramadol ROS Cardiovascular: Positive for [...] movements intact. Pupils: Pupi (more content not included)...[facility] 10-17-2024 NoteDIRECT CARDIOVERSION PROCEDURE NOTE [...] Plan: Continue anticoagulation. Trang Degroot MD Cardiac ElectrophysiologyUnUniversity Hospitals Ahuja [facility] Center01-02-2025 Note Patient: Delano Oliver Procedure Information Date/Time: 10/17/24 1230 Procedure: Cardioversion - PC APPROVED Location: [facility] / [facility] ([facility]) Providers: Trang Degroot MD Clinical information reviewed: Allergies Meds Physical Exam Airway Mallampati: II TM distance: >3 FB Neck ROM: full Cardiovascular Dental Pulmonary Abdominal Anesthesia Plan ASA 3 CSE Anesthetic plan and risks discussed with patient. Use of blood products discussed with patient who. Additional Equipment RequestsUnUniversity Hospitals Ahuja [facility] Center11-26-2024 Note amiUnUniversity Hospitals Ahuja Medical Center11-26-2024 NoteUT Electrophysiology Consult Note Reason for visit: Afib and dilated CMP. 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 Subsequent echocardiogram in [...] infrahisian disease. He was brought back to Administrative Personal Assistant on 02/12/2020 due to what was discussed [...] Procedure Laterality Date CARD (more content not included)...[facility]11-06-2024 History of Present illness Narrative* Marilin Bhardwaj, CCC-A - 08/21/2024 1:00 PM EST History: [...] that time if needed. documented in this encounterPerry County Memorial [id number] History of Present illness Narrative* Avery Syed [...] Follows with Dr. Rodriguez Pulmonary medicine in [place] 60% Left renal artery stenosis noted in the past Decreased left ventricular function ejection fraction 30%. Bindery Assistant [facility]issel at [facility]. His mostrecall his echo on 09/11/2023 showed an EF of 25-30%. He is no longer requiring a life vest. He is status post upgrade of permanent pacemaker to defibrillator an additional lead placement at the [facility] June 07, 2023. Grade 1 left ventricular diastolic dysfunction. Mild tricuspid regurgitation Mild mitral regurgitation Atrial flutter status post SUSAN cardioversion at [facility] in July of 2019.He did undergo an ablation after a hospital stay in October 2019. He is on anticoagulation with reduced dose Eliquis 2.5 mg p.o. b.I.d. 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 Being followed by Oncology with [...] Interpersonal Safety: Unknown (12/07/2023) Received from [facility] Safety & Environment Fear of Current or Ex-Partner: Not on file Emotionally Abused: Not on file Physically Abused: Not on file Sexually Abused: Not on file Physically or Sexually Abused: Not on file Housing Instability: Not on file Family History: Family History Problem Relation Age of Onset Diabetes Mother Hypertension Mother Diabetes Father Hypertension Father Allergies & Medications Allergies: Allergies Allergen Reactions Bhmvdcd-Swh-Tod Reductase Inhibitors Current Meds: Current Outpatient Medications [...] results found for: IRONSAT , FERRITIN , [id number] , FOLATE [facility]: No [...] of your patients! Please contact me at [phone] (Office) or [phone] (Answering service) with any questions. AVERY SYED MD [facility] This note was created with the assistance of a speech-recognition program. Although the intention is to generate a document that actually reflects the content of the visit, no guarantees can be provided that every mistake has been identified and corrected by editing. AVERY SYED MD,PhD FACP [facility] ANY QUESTIONS FEEL FREE TO CALL: 1. OFFICE [phone] 2. ANSWERING SERVICE: [phone] documented in this encounterK[facility]09-24-[facility]24 History of Present illness Narrative* Sidra Deleon DO - 07/09/2024 10:30 AM EDT Images [...] to clinic: 1 year documented in this encounterPer[facility] [id number] Miscellaneous Notes* Telephone Encounter - Roslyn Wagner - 04/29/2024 9:02 AM EDT Pts called to schedule July f/u appt in [place] with [facility]. Scheduled f/u appt and reminded to get labs 10 days prior. documented in this encounterK[facility]07-15-2024 Telephone encounter Note* Telephone Encounter - Roslyn Wagner - 04/29/2024 9:02 AM EDT Pts called to schedule July f/u appt in [place] with [facility]. Scheduled f/u appt and reminded to get labs 10 days prior. [facility] [employer] [id number] History of Present illness Narrative* Avery Syed [...] Follows with Dr. Rodriguez Pulmonary medicine in [place] 60% Left renal artery stenosis noted in the past Decreased left ventricular function ejection fraction 30%. Bindery Assistant Yissel at [facility]. His mostrecall his echo on 09/11/2023 showed an EF of 25-30%. He is no longer requiring a life vest. He is status post upgrade of permanent pacemaker to defibrillator an additional lead placement at the [facility] June 07, 2023. Grade 1 left ventricular diastolic dysfunction. Mild tricuspid regurgitation Mild mitral regurgitation Atrial flutter status post SUSAN cardioversion at [facility] in July of 2019.He did undergo an ablation after a hospital stay in October 2019. He is on anticoagulation with reduced dose Eliquis 2.5 mg p.o. b.I.d. 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 Being followed by Oncology with [...] Interpersonal Safety: Unknown (12/07/2023) Received from [facility] Safety & Environment Fear of Current or Ex-Partner: Not on file Emotionally Abused: Not on file Physically Abused: Not on file Sexually Abused: Not on file Physically or Sexually Abused: Not on file Housing Instability: Not on file Family History: Family History Problem Relation Age of Onset Diabetes Mother Hypertension Mother Diabetes Father Hypertension Father Allergies & Medications Allergies: Allergies Allergen Reactions Hrsjqja-Zme-Fte Reductase Inhibitors Current Meds: Current Outpatient Medications [...] results found for: IRONSAT , FERRITIN , [id number] , FOLATE Mineral and Bone Labs: No [...] of your patients! Please contact me at [phone] (Office) or [phone] (Answering service) with any questions. AVERY SYED MD [facility] This note was created with the assistance of a speech-recognition program. Although the intention is to generate a document that actually reflects the content of the visit, no guarantees can be provided that every mistake has been identified and corrected by editing. documented in this [facility]04-25-2024 Instructions* Patient Instructions* Avery Syed MD - 02/08/2024 10:30 AM EDT Return in 6 months documented in this [facility]04-12-2024 Miscellaneous Notes* Telephone Encounter - Ketan Osullivan - 01/26/2024 10:56 AM EDT Confirm appt with patient for 02/07 as well remind to have labs done 10-7 days before apt documented in this encounterK[facility]04-12-2024 Telephone encounter Note* Telephone Encounter - Ketan Osullivan - 01/26/2024 10:56 AM EDT Confirm appt with patient for 02/07 as well remind to have labs done 10-7 days before apt [facility] Siine [id number] Evaluation note* Encounter Date Diagnosis Assessment Notes Treatment Notes Treatment Clinical Notes Dec, Thyrotoxicosis (ICD-10 - E05.90) Dec,Hypothyroidism due to medication (ICD-10 - E03.2) [employer] Other 11-12-2023 Evaluation note* Encounter Date Diagnosis Assessment Notes Treatment Notes Treatment Clinical Notes Aug, Hyperuricemia (ICD-10 - E79.0) [employer] Other 11-07-2023 Evaluation note* Encounter Date Diagnosis [...] are maintaining regular scheduled appts with their jtac. No bleeding complications Aug,Mucopurulent chronic bronchitis (ICD-10 [...] the risk for cerebrovascular and cardiovascular disease. [employer] Other 09-07-2023 Evaluation note* Encounter Date Diagnosis Assessment Notes Treatment Notes Treatment Clinical Notes Jun, Hypothyroidism due to medication (ICD-10 - E03.2) [employer] Other 07-06-2023 Evaluation note* Encounter Date Diagnosis [...] are maintaining regular scheduled appts with their jtac. No bleeding compliations Initiated on [employer] Other 05-30-2023 Evaluation note* Encounter Date Diagnosis Assessment Notes Treatment Notes Treatment Clinical Notes February, Hypothyroidism due to medication (ICD-10 - E03.2) [employer] Other 05-19-2023 Progress note Author Leigha Nelson [facility] March 03, 2023 2:31pmNote Date/TimeMay 2022 2:21pmTexas [facility] [place] [id number] Hem/Onc Follow Up Note - OP Signed Patient: Delano Oliver MR#: [id number] : 1940 Acct:[id number] Age/Sex: 82 / M Type: REG RCR [...] for coordination of care (as documented) and udiq-pn-bxux counseling of patient and/or family. [facility] - Medical History Medical History: Medical [...] Sodium 142, Potassium 4.3, Chloride 104, Carbon Urmdekv97.0, Anion Gap 13.3, BUN 45 H, Creatinine 2.25 H, Est GFR (CKD-EPI) 28.753, Glucose 114 H, Calcium8.8, Iron 56, TIBC 281, Iron Obgvzbapbv62.9 L, Transferrin 201 L, Ferritin 236.7, Total [...] % (Auto) 68.3, Lymph % (Auto) 17.9, Routt % (Auto) 9.6, Eos % (Auto) 3.6, Baso % (Auto) 0.6, Nucleat RBC Rel Count 0.3, Neut # (Auto) 6.6, Lymph # (Auto) 1.7, Routt # (Auto) 0.9 H, Eos # (Auto) 0.3, Baso # (Auto) 0.1 - Home Medications and Allergies Allergies/Adverse Reactions: Allergies Etyspnq-NAF-PbP Reductase Inhibitor [Whposix-Ukv-Qld Reductase Inhibitor] Allergy (Verified 03/03/23 13:45) Muscle [...] <Electronically signed by EDWARD Nelson> 03/03/23 1431 [facility] Work Phone: 1(652) 112-363105-02-2023 Evaluation note* Encounter Date Diagnosis Assessment Notes Treatment Notes Treatment Clinical Notes February, Thyrotoxicosis (ICD-10 - E05.90) [facility] Other 03-29-2023 Evaluation note* Encounter Date Diagnosis [...] dilated cardiomyopathy (ICD-10 - I42.0)Continue healthy diet. [employer] Other 03-02-2023 Evaluation note* Encounter Date Diagnosis [...] - Z12.5) Dec,ardiac pacemaker (ICD-10 - Z95.0) [employer] Other 01-30-2023 Evaluation note* Encounter Date Diagnosis Assessment Notes Treatment Notes Treatment Clinical Notes Oct, Other thyrotoxicosis without thyrotoxic crisis or storm (ICD-10 - E05.80) [employer] Other 11-18-2022 Progress note Author Chivo Keller [facility] September 02, 2022 2:38pmNote Date/TimeNov2021 2:33pmTexas [facility] at [address] [address] Hem/Onc Follow Up Note - OP Signed Patient: Delano Oliver MR#: [id number] : 1940 Acct:[id number] Age/Sex: 82 / M Type: REG RCR [...] for coordination of care (as documented) and gmch-ye-hqhx counseling of patient and/or family. [facility] - Medical History Medical History: Medical [...] % (Auto) 68.3, Lymph % (Auto) 18.5, Routt % (Auto) 8.4, Eos % (Auto) 4.3, Baso % (Auto) 0.5, Neut # (Auto) 4.6, Lymph # (Auto) 1.2, Routt # (Auto) 0.6, Eos # (Auto) 0.3, Baso # (Auto) 0.0, Nucleated RBC % (auto) 0.1 - Home Medications and Allergies Allergies/Adverse Reactions: Allergies Verjnwi-ARI-RnO Reductase Inhibitor [Mymqdml-Frf-Dmv Reductase Inhibitor] Allergy (Verified 09/02/22 14:10) Muscle [...] by Chivo Keller II, DO> 09/02/22 1438 [facility] Work Phone: 1(239) 833-719810-06-2022 Procedure noteSum[facility]08-19-2022 Progress note Author Leihga Nelson [facility] June 03, 2022 10:35amNote Date/TimeAugust 2021 10:10a[facility] [place] [address] Hem/Onc Follow Up Note - OP Signed Patient: Delano Oliver MR#: [id number] : 1940 Acct:[id number] Age/Sex: 82 / M Type: REG RCR [...] for coordination of care (as documented) and whdq-ha-pene counseling of patient and/or family. [facility] - Medical History Medical History: Medical [...] Sodium 140, Potassium 4.4, Chloride 101, Carbon Qrqnaot06.7, BUN 42 H, Creatinine 2.23 H, Est [...] Neut % (Auto) 69.9, Lymph % (Auto)17.2, Routt % (Auto) 8.0, Eos % (Auto) 4.1, Baso % (Auto) 0.8, Neut # (Auto) 6.2, Lymph # (Auto) 1.5, Routt # (Auto) 0.7, Eos # (Auto) 0.4, Baso # (Auto) 0.1, Nucleated RBC % (auto) 0.0 - Home Medications and Allergies Allergies/Adverse Reactions: Allergies Plcxfeg-WZQ-ZyH Reductase Inhibitor [Bfapnyo-Qzz-Kqx Reductase Inhibitor] Allergy (Verified 06/03/22 09:55) Muscle [...] 1007 Signed By: <Electronically signed by EDWARD Nelsno> 06/03/22 1035 [facility] Work Phone: 1(962) 411-300606-18-2022 NoteMR#: [id number] [facility] Pt. Name: Delano Oliver Admitted: 03/30/2022 Discharged: 04/02/2022 Date of : 1940 Physician: Gilmer Salazar MD DISCHARGE SUMMARY CONSULTING SERVICES: 1. Nephrology Service. 2. Endocrinology service. 3. Cardiology service. PRINCIPAL DIAGNOSES: 1. Rrzyr-te-qknvqvz heart failure, reduced ejection fraction of 35%. 2. Acute kidney injury on chronic kidney disease, stage 4, resolved. 3. Dyspnea, on exertion. 4. Essential hypertension. 5. History of coronary artery disease. 6. Iodine-induced hyperthyroidism, uncontrolled. 7. Ljr-zuwfhqe-xvfnyapyy diabetes mellitus, diet controlled, A1c 6.4. 8. [...] is a 81-year-old male who presented to [facility] with chief complaint of dyspnea on [...] overload occurs, he is to call his jtac and/or PCP. The patient also require repeat [...] Adler PA-C Date Trans: 04/02/2022 02:36 P/hans [id number] cc: Yas Linda D.O. [address] [place] [id number] [facility]05-21-2022 NotePROCEDURE: XR CHEST 1 [...] Electronically authenticated by: NICK OLMEDO Date: 2022-03-05 21:2905-15-2022 Progress note Author Chivo Keller [facility] February 27, 2022 12:52pmNote Date/TimeMay 2021 12:11pmTexas [facility] at [address] [place] [address] Hem/Onc Follow Up Note - OP Signed Patient: Delano Oliver MR#: [id number] : 1940 Acct:[id number] Age/Sex: 81 / M Type: REG RCR [...] for coordination of care (as documented) and mcxe-bx-wjnf counseling of patient and/or family. [facility] - Medical History Medical History: Medical [...] % (Auto) 65.1, Lymph % (Auto) 19.2, Routt % (Auto) 13.3, Eos % (Auto) 1.8, Baso % (Auto) 0.6, Neut # (Auto) 4.2, Lymph # (Auto) 1.2,Routt # (Auto) 0.9H, Eos # (Auto) 0.1, Baso # (Auto) 0.0, Nucleated RBC % (auto) 0.0 02/22/22 09:35: PHA Creatinine Clear 31.95, Sodium 140, Potassium 4.0, Chloride 104, Carbon Redsuhs09.7, BUN 57 H, Creatinine 2.16 H, Est GFR ( Amer) 36, Est GFR (Non-Af Amer) 30, Glucose 126H, Calcium 9.3, Total Bilirubin 0.8, AST 19, ALT 20, Alkaline Phosphatase 85, Total Protein 6.5, Albumin 3.3, Globulin 3.2, Albumin/Globulin Ratio 1.0, TSH 3rd Generation < 0.01 L 05/10/22 09:35: Carcinoembryonic Ag 1.6 - Home Medications and Allergies Allergies/Adverse Reactions: Allergies Eyopxuh-TQU-UxG Reductase Inhibitor [Uaxpzzd-Mys-Obi Reductase Inhibitor] Allergy (Verified 02/25/22 11:39) Muscle [...] by Chivo Keller II, DO> 02/27/22 1252 [facility] Work Phone: [phone] 188-883311-16-2021 Consult note Author Nikunj Shultz [facility] August 31, 2021 9:50amNote Date/TimeNovember 2020 9:33[facility] [place] [address] Hem/Onc Consult Note - OP Signed Patient: Delano Oliver MR#: [id number] : 1940 Acct:[id number] Age/Sex: 81 / M Type: REG RCR [...] He has recovered well from surgery. [facility] - Medical History Medical History: Medical [...] Type: None Home Medications & Allergies Allergies Vngawaw-EJI-LaK Reductase Inhibitor [Fbryrkm-Tvv-Smm Reductase Inhibitor] Allergy (Verified 08/31/21 08:57) Muscle [...] or Bravo syndrome. [facility] and refer the patient for genetic testing. - Time with Patient Coordination of Care & Counseling Time: Greater than 50% of time spent with patient was for coordination of care (as documented) and qjzi-zw-yzla counseling of patient and/or family. Dictated By: Nikunj Shultz MD DD/ Signed By: <Electronically signed by MD Nikunj Shultz> 08/31/21 0950 [facility] Work Phone: Evaluation note* Diagnosis Onset Date Resolution Status Colon cancer acute [facility] Work Phone: Evaluation noteNo [employer] Other Evaluation note* Diagnosis Onset Date Resolution Status Chronic bronchitis, simple acuteChronic HFrEF (heart failure with reduced ejection fraction)acuteColon canceracuteHypothyroidism due to medicationacuteNonischemic dilated cardiomyopathyacuteObstructive sleep apneaacuteParoxysmal atrial fibrillation acutePrimary hypertensionacuteStage 4 chronic kidney diseaseacuteType 2 diabetes mellitus with hyperglycemiaacuteMedicare annual wellness visit, subsequent noneactiveScreening PSA (prostate specific antigen)noneactiveColon canceracute [facility] Work Phone: Evaluation note* Diagnosis Onset Date Resolution Status Colon cancer acuteChronic bronchitis, simpleacuteChronic HFrEF (heart failure with reduced ejection fraction)acuteColon canceracuteHypothyroidism due to medicationacute Nonischemic dilated cardiomyopathyacuteObstructive sleep apneaacuteParoxysmal atrial fibrillationacutePrimary hypertensionacuteStage 4 chronic kidney disease acuteType 2 diabetes mellitus with hyperglycemiaacute [facility] Work Phone: Evaluation note* Diagnosis Bilateral impacted cerumen- Primary Impacted cerumen documented in this encounter [facility] HealthcareEvaluation note* Diagnosis MOLINA (obstructive sleep apnea)- Primary Obstructive sleep apnea (adult) (pediatric) Hypersomnia Hypersomnia, unspecified Primary insomnia Persistent disorder of initiating or maintaining sleep Snoring Other dyspnea and respiratory abnormality Hypoxia Hypoxemia documented in this encounter [facility] HealthcareEvaluation note* Diagnosis Stage 4 chronic kidney disease (CMS-HCC)- Primary [facility] Diagnosis Stage 4 chronic kidney disease (CMS-HCC)- Primary documented in [facility] encounter [facility] SystemEvaluation note* Diagnosis Sensorineural hearing loss (SNHL) of both ears- Primary documented in this encounter [facility] HealthcareEvaluation note* Diagnosis Onset Date Resolution [...] 8:49amScreening PSA (prostate specific antigen)noneactiveMarch 2024 8:49am [facility] Work Phone: Evaluation note* Diagnosis Diabetic polyneuropathy associated with type 2 diabetes mellitus ([facility])- Primary Onychodystrophy Other specified disease of [...] mellitus (HCC) documented in this encounter [facility]* Diagnosis Onychomycosis- Primary Dermatophytosis of nail Onychodystrophy Other specified disease of nail Diabetic polyneuropathy associated with type 2 diabetes mellitus (HCC) documented in this encounter [facility] HealthcareHistory and physical note Author Ramesh Rascon [facility] July 21, 2022 9:27amNote Date/TimeOct2021 9:27am[place] [address] Gastroenterology H&P Signed Patient: Delano Oliver MR#: [id number] : 1940 Acct:[id number] Age/Sex: 82 / M Adm Date: 2 [...] <Electronically signed by Ramesh Rascon MD> 07/21/22926 [facility] Work Phone: History general Narrative - Reported* [...] Surgical HistoryCyst removal x 2Surgical History cardiac [id number] HistoryINSERTION OF DUAL LEAD PACEMAKERurgical HistoryHEMICOLECTOMY, RIGHT1Surgical HistoryRHC- RIGHT HEART CATH [id number] HistoryLHC- LEFT HEART CATH04/2016Hospitalization HistorySee above [facility] Other History general Narrative - Reported* Type [...] Surgical HistoryCyst removal x 2Surgical History cardiac [id number] HistoryINSERTION OF DUAL LEAD PACEMAKER/20Surgical HistoryHEMICOLECTOMY, RIGHTurgical HistoryRHC- RIGHT HEART CATH [id number] HistoryLHC- LEFT HEART CATH04/2016Surgical History Colonoscopy w/ polypectomy, repeat in Hospitalization HistorySee above [facility] Other History general Narrative - Reported* Type [...] Surgical HistoryCyst removal x 2Surgical History cardiac mnkgjuin5855Ehkhrhpm HistoryINSERTION OF DUAL LEAD PACEMAKER4/20Surgical HistoryHEMICOLECTOMY, RIGHTurgical HistoryRHC- RIGHT HEART CATH [id number] HistoryLHC- LEFT HEART CATH04/2016Surgical History Colonoscopy w/ polypectomy, repeat in urgical HistoryBiventricular ICD/2022Hospitalization HistorySee above [facility] Other Hospital Discharge instructions Additional Instructions DISCHARGE [...] Follow up with PCP. - Office number [phone].[facility] Work Phone: InstructionsNot on filedocumented in this encounter [facility] SystemInstructionsNot on filedocumented in this encounter [facility] SystemProgress note Author Leigha Nelson [facility] June 03, 2022 10:35amNote Date/TimeAugust 2021 10:10a[facility] at [address] [address] Hem/Onc Follow Up Note - OP Signed Patient: Delano Oliver MR#: [id number] : 1940 Acct:[id number] Age/Sex: 82 / M Type: REG RCR [...] for coordination of care (as documented) and llcp-xd-xwex counseling of patient and/or family. [facility] - Medical History Medical History: Medical [...] Sodium 140, Potassium 4.4, Chloride 101, Carbon Bedferh42.7, BUN 42 H, Creatinine 2.23 H, Est [...] Neut % (Auto) 69.9, Lymph % (Auto)17.2, Routt % (Auto) 8.0, Eos % (Auto) 4.1, Baso % (Auto) 0.8, Neut # (Auto) 6.2, Lymph # (Auto) 1.5, Routt # (Auto) 0.7, Eos # (Auto) 0.4, Baso # (Auto) 0.1, Nucleated RBC % (auto) 0.0 - Home Medications and Allergies Allergies/Adverse Reactions: Allergies Uyqemlo-WDT-PuE Reductase Inhibitor [Vnmxllv-Hzx-Yan Reductase Inhibitor] Allergy (Verified 06/03/22 09:55) Muscle [...] <Electronically signed by EDWARD Nelson> 06/03/22 1035 [facility] Work Phone: Progress note Author Chivo Keller [facility] September 02, 2022 2:38pmNote Date/TimeNov2021 2:33pmTexas [facility] [place] [address] Hem/Onc Follow Up Note - OP Signed Patient: Delano Oliver MR#: [id number] : 1940 Acct:[id number] Age/Sex: 82 / M Type: REG RCR Copies to: MD Yas Lui,SUSI Date of Service: 09/02/2022 Time of [...] for coordination of care (as documented) and eatk-cu-yovm counseling of patient and/or family. [facility] - Medical History Medical History: Medical [...] % (Auto) 68.3, Lymph % (Auto) 18.5, Routt % (Auto) 8.4, Eos % (Auto) 4.3, Baso % (Auto) 0.5, Neut # (Auto) 4.6, Lymph # (Auto) 1.2, Routt # (Auto) 0.6, Eos # (Auto) 0.3, Baso # (Auto) 0.0, Nucleated RBC % (auto) 0.1 - Home Medications and Allergies Allergies/Adverse Reactions: Allergies Surcwjp-VDS-PzR Reductase Inhibitor [Nxdhnbt-Yvf-Elx Reductase Inhibitor] Allergy (Verified 09/02/22 14:10) Muscle [...] by Chivo Keller II, DO> 09/02/22 1438 [facility] Work Phone: Progress note Author Chivo Keller [facility] September 01, 2023 2:14pmNote Date/TimeNovember 2022 2:09pmTexas Health [facility] [place] [address] Hem/Onc Follow Up Note - OP Signed Patient: Delano Oliver MR#: [id number] : 1940 Acct:[id number] Age/Sex: 83 / M Type: REG RCR [...] for coordination of care (as documented) and xtqb-rb-xvpp counseling of patient and/or family. [facility] - Medical History Medical History: Medical [...] Sodium 143, Potassium 4.5, Chloride 102, Carbon Zctvfzc39.5 H, Anion Gap 10.0, BUN 51 H, Creatinine 2.29 H, Est GFR(CKD-EPI) 27.976, Glucose 111 H, Calcium 9.7, Iron 84, TIBC 290, Iron Ytxktsyoal51.0, Transferrin 207, Ferritin 239.3, Total Bilirubin 0.8,AST 23, ALT 20, Alkaline Phosphatase 114 H, Total Protein 6.9, Albumin 4.4, Globulin 2.5, Albumin/Globulin Ratio 1.8 08/30/23 09:32: Corrected WBC 7.0, Uncorrected WBC Count 7.0, RBC 3.96, Hgb 12.3L, Hct 36.8 L, MCV 92.8, MCH 30.9, MCHC 33.3, RDW 14.8, Plt Count 206, MPV 7.6, Neut % (Auto) 65.9, Lymph % (Auto) 21.9, Routt % (Auto) 7.9, Eos % (Auto) 3.8, Baso % (Auto) 0.5, Nucleat RBC Rel Count 0.1, Neut # (Auto) 4.6, Lymph # (Auto) 1.5, Routt # (Auto) 0.5, Eos # (Auto) 0.3, Baso # (Auto) 0.0 - Home Medications and Allergies Allergies/Adverse Reactions: Allergies Kvbvirt-QKI-XeX Reductase Inhibitor [Ljyqafx-Epb-Tpo Reductase Inhibitor] Allergy (Verified 03/03/23 13:45) Muscle [...] by Chivo Keller II, DO> 09/01/23 1414 [facility] Work Phone: Progress note Author Chivo Keller [facility] March 01, 2024 11:39amNote Date/TimeMay 2023 11:18amTexas Health [facility] [place] [address] Cancer Center Note Signed Patient: Delano Oliver MR#: [id number] : 1940 Acct:[id number] Age/Sex: 83 / M Type: REG AMB [...] Allergy (Unknown, Verified 12/18/23 10:02) Unknown Reaction Zljnlnn-SKR-FtJ Reductase Inhibitor [Xgkrnjh-Iqo-Anw Reductase Inhibitor] Allergy (Unknown, Verified 12/18/23 10:02) [...] PO DAILY ezetimibe 10 mg PO DAILY nhcxvdewxkr-qebvrhrhq-supzzsfu 200-62.5-25 mcg (Trelegy Ellipta) 1 inh inhalation [...] concerns voiced at time of intake. [facility] Medical History Medical History (Updated 01/30/24 [...] by Chivo Keller II, DO> 03/01/[address] [facility] Work Phone: Reason for referral (narrative)No reason for referral information availableMercy Health St. [facility] Work Phone: Summary Purpose Family History [...] neoplasmUnknownsonCongenital pure red cell aplasiaUnknown Advance Directives Advance Directive Response Recorded Date/ [...] December 21, 2024 10:13pm Coronary artery disease March 8th, 2025 10:13pm Hypertensive chronic kidney disease with stage [...] 0:13pm Type 2 diabetes mellitus with hyperglyce [facility] December 21, 2024 10:13pm Chronic HFrEF (heart [...] 2:06pm Type 2 diabetes mellitus with hyperglyce [facility] December 27, 2024 2:06pm Femoral neck fracture [...] fraction) December 19, 2024 8:49am Colon cancer March 6th, 2025 8:49 am Hypothyroidism due to medication December [...] m OP 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, DENTAL HYGIENE INSTRUCTOR February 11:18am Z96.641 - Presence of right [...] 1:59pm OP 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, DENTAL 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 INSTRUCTOR February 11:18am Z96.641 - Presence of right [...] 1:59pm OP 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, DENTAL HYGIENE INSTRUCTOR February 11:18am Z96.641 - Presence of right [...] 25, 2025 1:04pm Cellulitis of arm, left W[place] 10th, 2025 1:04pm Acute blood loss anemia April [...] Date OP 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, DENTAL 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 INSTRUCTOR February 11:18am Z96.641 - Presence of right [...] Nonischemic dilated cardiomyopathy Septe mber 2024 9:17am Chief Complaint Admit Date 10-12 WEEKS April 29, 2025 9:55 am Follow Up 3 Months [place] 22nd, 2025 12 :41pm Colon Cancer June 06, [...] 9:17am Chronic kidney disease July 08, 2 9:17am Colon cancer July 08, 2025 9:17am Hypercholesteremia July 08, 2025 9:17am Hypothyroidism due to medication Septemb er 2024 9:17am Nonischemic dilated cardiomyopathy Septe [facility] 2024 9:17am Obstructive sleep apnea July 08, 2025 9:17am Type 2 diabetes mellitus with hyperglyce yossi July 08, 2025 9:17am Atrial fibrillation July 22, 2025 3: 46pm Bruising at injection site July 22, 2025 3:46pm Chronic HFrEF (heart failure with reduced ejection fraction) July 22, 2025 3:46pm Nonischemic dilated cardiomyopathy Octob er 2024 3:46pm Chief Complaint Admit Date Follow Up 3 Months June 06, 2025 12 :41pm Colon Cancer June 06, 2025 12 :43pm 3 mo f/u July 08, 2025 9:17am Amb Documentation July 21, 2025 9: 45am arm bruising/ ER follow up July 22, 2025 3:46pm 4 month f/u August 21, 2025 2 :06pm Reason for Visit Admit Date Acute blood loss anemia June 06 12:41pm [...] Nonischemic dilated cardiomyopathy Octob er 2024 3:46pm Anemia of renal disease August 21 2:06pm Chronic HFrEF (heart failure with reduced ejection fraction) August 21, 2025 2:06pm Hypercholesteremia August 21, 2025 2 :06pm Secondary hyperparathyroidism August [id number] 2:06pm Type 2 diabetes mellitus wit h diabetic chronic kidney disease August 21, 2025 2:06pm Hypertensive chronic kidney disease with stage 1 through stage 4 chronic ki August 21, 2025 2:06pm Stage 4 chronic kidney disease August 21, 2025 2:06pm Additional Source Comments (unrecognized sect ion and content) No Status Records FoundNo Status Records FoundNo Status Records FoundNo Status Records FoundNo Status Records FoundNo Status Records Found INFORMATION SOURCE (unrecogn ized section and content) DATE CREATED AUTHOR 07/09/2021 [facility] DATE CREATED AUTHOR AUTHOR'S ORGANIZ ATION 06/10/2022 [facility] DATE CREATED AUTHOR AUTHOR'S ORGANIZ ATION 03/01/2023 [facility] DATE CREATED AUTHOR AUTHOR'S ORGANIZ ATION 06/04/2025 [facility] DATE CREATED AUTHOR AUTHOR'S ORGANIZ ATION 08/28/2025 [facility] DATE CREATED AUTHOR AUTHOR'S ORGANIZ ATION 08/28/2025 [facility] EPIC Care Teams (unrecognized sec tion and content) Team Status: Active Member Role Status Dates Yas Linda DO Primary Care Provider Active Team Status: Inactive Member Role Status Dates Yas Linda DO Primary Care Provider Active Start: April 17, 2025 End: April 17erumul Lionel , MDAttending ProviderActiveStart: April 17, 2025 End: April 17, 2025 Team Status: Inactive Member Role Status Dates Yas Linda DO Primary Care Provider Active Start: April 29, 2025 End: April 29, 2025Thomas Yang , MDAttending ProviderActiveStart: April 29, 2025 End: April 29, 2025 Team Status: Inactive Member Role Status Dates Yas Linda DO Primary Care Provider Active Start: June 06, 2025 End: June 06samantha Mayfield , DENTAL HYGIENE INSTRUCTOR-CAttending ProviderActiveStart: June 06, 2025 End: June 06, 2025 Team Status: Active Member Role Status Dates Yas Linda DO Primary Care Provider Active Start: June 06, 2025 Kalia Sánchez MDReferring ProviderActiveStart: June 06, 2025 Chivo Keller II, DOAttending ProviderActiveStart: June 06, 2025 Team Status: Active Member Role Status Dates Yas Linda DO Primary Care Provider Active Start: July 01, 2025 Yas Linda DOAttending ProviderActiveStart: July 01, 2025 Team Status: Inactive Member Role Status Dates Yas Linda DO Primary Care Provider Active Start: July 07, 2025 End: July 07, 2025Sidra Deleon , DOAttending ProviderActiveStart: July 07, 2025 End: July 07, 2025 Team Status: Inactive Member Role Status Dates Yas Linda DO Primary Care Provider Active Start: July 08, 2025 End: July 08rick Linda , DOAttending ProviderActiveStart: July 08, 2025 End: July 08, 2025 Team Status: Active Member Role Status Dates Yas Linda DO Primary Care Provider Active Start: April 08, 2025 Zahida Flowers , MDAttending ProviderActiveStart: April 08, 2025 Team Status: Inactive Member Role Status Dates Yas Linda DO Primary Care Provider Active Start: March 25, 2025 End: March 25enalbert Linda , DOAttending ProviderActiveStart: March 25, 2025 End: March 25, 2025 Team Status: Inactive Member Role Status Dates Yas Linda DO Primary Care Provider Active Start: April 07, 2025 End: April 07enalbert Linda , DOAttending ProviderActiveStart: April 07, 2025 End: April 07, 2025 Team Status: Active Member Role Status Dates Yas Linda DO Primary Care Provider Active Start: February 20, 2025 Yas Linda , DOAttending ProviderActiveStart: February 20, 2025 Team Status: Inactive Member Role Status Dates Yas Linda DO Primary Care Provider Active Start: February 25, 2025 End: February 25, 2025Thsekou Soria MDAttending ProviderActiveStart: February 25, 2025 End: February 25, 2025 Team Status: Inactive Member Role Status Dates Walker Soria MD Attending Provider Active Star t: February 25, 2025 End: February 25Alison Álvarez Care ProviderActiveStart: February 25, 2025 End: February 25, 2025 Team Status: Inactive Member Role Status Dates Yas Linda DO Primary Care Provider Active Start: February 28, 2025 End: February 28, 2025Chivo Keller II, DOAttending ProviderActiveStart: February 28, 2025 End: February 28, 2025 Team Status: Active Member Role Status Dates Yas Linda DO Primary Care Provider Active Start: February 28, 2025 PEARL Saraheferring ProviderActiveStart: February 28, 2025 Chivo Keller II, DOAttending ProviderActiveStart: February 28, 2025 Team Status: Inactive Member Role Status Dates Yas Linda DO Primary Care Provide r, Attending Provider Active Start: December 19, 2024 End: December 19, 2024 Team Status: Active Member Role Status Dates Yas Linda DO Primary Care Provider Active Start: December 21, 2024 Johnnie Radha , MDAttending ProviderActiveStart: December 21, 2024 Team Status: Inactive Member Role Status Dates Yas Linda DO Primary Care Provider Active Start: December 21, 2024 End: December 27, 2024Ruta TYLOR Sooddmit ProviderActiveStart: December 21, 2024 End: December 27, 2024Thsekou Soria MDOther ProviderActiveStart: December 21, 2024 End: December 27nish Mota MDOther ProviderActiveStart: December 21, 2024 End: December 27, 2024Kiesha Hawley , DENTAL HYGIENE INSTRUCTOR-COther ProviderActiveStart: December 21, 2024 End: December 27, 2024Jupeir Winslow , Other ProviderActiveStart: December 21, 2024 End: December 27, 2024Mazin Erickson II, MDOther ProviderActiveStart: December 21, 2024 End: December 27, 2024Dario Rosales DOOther ProviderActiveStart: December 21, 2024 End: December 27, 2024Emile Reynolds , DOAttending ProviderActiveStart: December 21, 2024 End: December 27, 2024Winsome Goff MDOther ProviderActiveStart: December 21, 2024 End: December 27, 2024Judy Macias , DENTAL HYGIENE INSTRUCTOR-COther ProviderActiveStart: December 21, 2024 End: December 27bernard Flowers MDOther ProviderActiveStart: December 21, 2024 End: December 27Armani Schreiber ProviderActiveStart: December 21, 2024 End: December 27, 2024Armani Mustafa ProviderActiveStart: December 21, 2024 End: December 27, 2024Sotero Black MDOther ProviderActiveStart: December 21, 2024 End: December 27, 2024Elena Turovskaya , APRNOther ProviderActiveStart: December 21, 2024 End: December 27enedict Loli Quinteros Jr, DOOther ProviderActiveStart: December 21, 2024 End: December 27manuel Bedolla MDOther ProviderActiveStart: December 21, 2024 End: December 27, 2024 Team Status: Active Member Role Status Dates Ysa Linda DO Primary Care Provider Active Start: December 22, 2024 Sudha Sood MDAdmit ProviderActiveStart: December 22, 2024 Walker Soria MDOther ProviderActiveStart: December 22, 2024 Wendy Mota MDAttending Provider, Other ProviderActiveStart: December 22, 2024 Kiesha Hawley , DENTAL HYGIENE INSTRUCTOR-COther ProviderActiveStart: December 22, 2024 José Luis Winslow , DOOther ProviderActiveStart: December 22, 2024 Mazin Erickson II, MDOther ProviderActiveStart: December 22, 2024 Dario Rosales , DOOther ProviderActiveStart: December 22, 2024 Emile Reynolds DOOther ProviderActiveStart: December 22, 2024 Winsome Goff MDOther ProviderActiveStart: December 22, 2024 Judy Macias DENTAL HYGIENE INSTRUCTOR-COther ProviderActiveStart: December 22, 2024 Zahida Flowers MDOther ProviderActiveStart: December 22, 2024 Kaitlynn Emanuel MDOther ProviderActiveStart: December 22, 2024 Talisha Hitchcock MDOther ProviderActiveStart: December 22, 2024 Sotero Black MDOther ProviderActiveStart: December 22, 2024 Brenda Driscoll , APRNOther ProviderActiveStart: December 22, 2024 Chelsea Loli Quinteros Jr, DOOther ProviderActiveStart: December 22, 2024 Clyde Bedolla MDOther ProviderActiveStart: December 22, 2024 Team Status: Active Member Role Status Dates Yas Linda DO Primary Care Provider Active Start: December 22, 2024 Armani Styles ProviderActiveStart: December 22, 2024 Wendy Mota MDOther ProviderActiveStart: December 22, 2024 Kiesha Hawley , DENTAL HYGIENE INSTRUCTOR-COther ProviderActiveStart: December 22, 2024 José Luis Winslow , Other ProviderActiveStart: December 22, 2024 Mazin Erickson II, MDOther ProviderActiveStart: December 22, 2024 Dario Rosales DOOther ProviderActiveStart: December 22, 2024 Sudha Sood MDAdmit ProviderActiveStart: December 22, 2024 Jaye Jorgensen MDOther ProviderActiveStart: December 22, 2024 Danuta Salomon RNOther ProviderActiveStart: December 22, 2024 Duncan Meier MDOther ProviderActiveStart: December 22, 2024 Adan Díaz MDOther ProviderActiveStart: December 22, 2024 Krysten Bowers MDAttending Provider, Other ProviderActiveStart: December 22, 2024 Team Status: Active Member Role Status Dates Yas Linda DO Primary Care Provider Active Start: December 23, 2024 Sudha Sood MDAdmit ProviderActiveStart: December 23, 2024 Danuta Salomon RNOther ProviderActiveStart: December 23, 2024 Duncan Meier MDOther ProviderActiveStart: December 23, 2024 Adan Díaz MDOther ProviderActiveStart: December 23, 2024 Armani Valerio ProviderActiveStart: December 23, 2024 Walker Soria MDAttending Provider, Other ProviderActiveStart: December 23, 2024 Wendy Mota MDOther ProviderActiveStart: December 23, 2024 Kiesha Hawley , DENTAL HYGIENE INSTRUCTOR-COther ProviderActiveStart: December 23, 2024 José Luis Winslow DOOther ProviderActiveStart: December 23, 2024 Mazin Erickson II, MDOther ProviderActiveStart: December 23, 2024 Dario Rosales DOOther ProviderActiveStart: December 23, 2024 Emile Reynolds DOOther ProviderActiveStart: December 23, 2024 Team Status: Active Member Role Status Dates Yas Linda DO Primary Care Provider Active Start: December 24, 2024 Sudha Sood MDAdmfco ProviderActiveStart: December 24, 2024 Walker Olexa , MDOther ProviderActiveStart: December 24, 2024 Wendy Mota MDOther ProviderActiveStart: December 24, 2024 Kiesha Hawley , DENTAL HYGIENE INSTRUCTOR-COther ProviderActiveStart: December 24, 2024 José Luis Winslow , Other ProviderActiveStart: December 24, 2024 Mazin Erickson II, MDOther ProviderActiveStart: December 24, 2024 Dario Rosales , DOOther ProviderActiveStart: December 24, 2024 Emile Reynolds , DOOther ProviderActiveStart: December 24, 2024 Talisha Hitchcock MDOther ProviderActiveStart: December 24, 2024 Sotero Black MDOther ProviderActiveStart: December 24, 2024 Brenda Driscoll APRNOther ProviderActiveStart: December 24, 2024 William Quinteros Jr, DOOther ProviderActiveStart: December 24, 2024 Clyde Bedolla MDOther ProviderActiveStart: December 24, 2024 Armani Ha ProviderActiveStart: December 24, 2024 Judy Macias NP-COther ProviderActiveStart: December 24, 2024 Zahida Flowers MDAttending Provider, Other ProviderActiveStart: December 24, 2024 Armani Enriquez ProviderActiveStart: December 24, 2024 Team Status: Active Member Role Status Dates Yas Linda DO Primary Care Provider Active Start: December 25, 2024 Aspen Donahue ProviderActiveStart: December 25, 2024 Walker Soria MDOther ProviderActiveStart: December 25, 2024 Wendy Mota MDOther ProviderActiveStart: December 25, 2024 Kiesha Hawley NP-COther ProviderActiveStart: December 25, 2024 José Luis Winslow DOOther ProviderActiveStart: December 25, 2024 Mazin Erickson II, MDOther ProviderActiveStart: December 25, 2024 Dario Rosales DOOther ProviderActiveStart: December 25, 2024 Emile Reynolds DOOther ProviderActiveStart: December 25, 2024 Armani Ha ProviderActiveStart: December 25, 2024 Wayne Joynerher ProviderActiveStart: December 25, 2024 Zahida Flowers MDOther ProviderActiveStart: December 25, 2024 Kaitlynn Emanuel MDOther ProviderActiveStart: December 25, 2024 Talisha Hitchcock MDOther ProviderActiveStart: December 25, 2024 Sotero Black MDOther ProviderActiveStart: December 25, 2024 Brenda Driscoll APRNOther ProviderActiveStart: December 25, 2024 William Quinteros Jr DOOther ProviderActiveStart: December 25, 2024 Clyde Bedolla MDAttending Provider, Other ProviderActiveStart: December 25, 2024 Team Status: Inactive Member Role Status Dates Yas Linda DO Primary Care Provider Active Start: December 27, 2024 End: January 10, 2025JoAspen Jones Provider, Attending ProviderActive Start: December 27, 2024 End: January 10lexlilia Bates RNOther ProviderActiveStart: December 27, 2024 End: January 10, 2025Dejaleesa Jacobs RNOther ProviderActiveStart: December 27, 2024 End: January 10, 2025Miccliff Kirkland RNOther ProviderActiveStart: December 27, 2024 End: January 10, 2025Mofarrah Balbuena RNOther ProviderActiveStart: December 27, 2024 End: January 10, 2025Pati Brice RNOther ProviderActiveStart: December 27, 2024 End: January 10, 2025Raney Jasso MDOther ProviderActiveStart: December 27, 2024 End: January 10, 2025Ronbrianna Bustamante DOOther ProviderActiveStart: December 27, 2024 End: January 10, 2025Musarnold Salazar MDOther ProviderActiveStart: December 27, 2024 End: January 10, 2025Rachid Adhikari DOOther ProviderActiveStart: December 27, 2024 End: January 10ndoly De León MDOther ProviderActiveStart: December 27, 2024 End: January 10, 2025Sudha Sood MDOther ProviderActiveStart: December 27, 2024 End: January 10, 2025MicZarina Gruber ProviderActiveStart: December 27, 2024 End: January 10, 2025Armani Jenkins ProviderActiveStart: December 27, 2024 End: January 10, 2025Ramy Valenciaher ProviderActiveStart: December 27, 2024 End: January 10, 2025Armani Rosenberg ProviderActiveStart: December 27, 2024 End: January 10Armani Arreola ProviderActiveStart: December 27, 2024 End: January 10, 2025Armani De La Cruz ProviderActiveStart: December 27, 2024 End: January 10, 2025SaArmani Nicole ProviderActiveStart: December 27, 2024 End: January 10, 2025MicZarina Glass ProviderActiveStart: December 27, 2024 End: January 10, 2025Armani Steinberg ProviderActiveStart: December 27, 2024 End: January 10, 2025Armani Tran ProviderActiveStart: December 27, 2024 End: January 10calvin Stone NP-COther ProviderActiveStart: December 27, 2024 End: January 10dRamy Hectorher ProviderActiveStart: December 27, 2024 End: January 10, 2025Kuldeep See MDOther ProviderActiveStart: December 27, 2024 End: January 10, 2025Armani Pineda ProviderActiveStart: December 27, 2024 End: January 10, 2025Armani Thomas ProviderActiveStart: December 27, 2024 End: January 10, 2025Armani Lopez ProviderActiveStart: December 27, 2024 End: January 10Armani Ramirez ProviderActiveStart: December 27, 2024 End: January 10, 2025Margo Umesh , DOOther ProviderActiveStart: December 27, 2024 End: January 10, 2025Vish Bajwa , DOOther ProviderActiveStart: December 27, 2024 End: January 10, 2025Krysten Mcclelland , APRNOther ProviderActiveStart: December 27, 2024 End: January 10, 2025Emile Reynolds , DOOther ProviderActiveStart: December 27, 2024 End: January 10, 2025Carole Burden MDOther ProviderActiveStart: December 27, 2024 End: January 10, 2025Siobhan Rucker , APRNOther ProviderActiveStart: December 27, 2024 End: January 10red Maria , APRNOther ProviderActiveStart: December 27, 2024 End: [...] ProviderActiveStart: December 27, 2024 End: January 10, 2025Magnolia Pierce MDOther ProviderActiveStart: December 27, 2024 End: January 10dimas Jain MDOther ProviderActiveStart: December 27, 2024 End: January 10, 2025Sotero Mijares MDOther ProviderActiveStart: December 27, 2024 End: January 10, 2025Armani Holder ProviderActiveStart: December 27, 2024 End: January 10, 2025Armani John ProviderActiveStart: December 27, 2024 End: January 10, 2025Aria Schaffer , APRNOther ProviderActiveStart: December 27, 2024 End: January 10, 2025Alvina Ch , APRNOther ProviderActiveStart: December 27, 2024 End: January 10, 2025Aura Kay RNOther ProviderActiveStart: December 27, 2024 End: January 10, 2025Winsome Goff MDOther ProviderActiveStart: December 27, 2024 End: January 10, 2025Wayne Joynerher ProviderActiveStart: December 27, 2024 End: January 10Armani Alas ProviderActiveStart: December 27, 2024 End: January 10Armani Schreiber ProviderActiveStart: December 27, 2024 End: January 10sean Rascon MDOther ProviderActiveStart: December 27, 2024 End: January 10, 2025Jerry Velasquez APRNOther ProviderActiveStart: December 27, 2024 End: January 10, 2025Imaxochilt Nicole MDOther ProviderActiveStart: December 27, 2024 End: January 10genny Tian DOOther ProviderActiveStart: December 27, 2024 End: January 10, 2025Gilles Kirkland , APRNOther ProviderActiveStart: December 27, 2024 End: January 10, 2025 Team Status: Active Member Role Status Dates Yas Linda DO Primary Care Provider Active Start: December 28, 2024 Aspen Abdi Provider, Other ProviderActiveStart: December 28, 2024 Noemy [...] MDOther ProviderActiveStart: December 28, 2024 Rachid Adhikari , DOOther ProviderActiveStart: December 28, 2024 Yassine De [...] MDOther ProviderActiveStart: December 28, 2024 Micah Lyn , DOOther ProviderActiveStart: December 28, 2024 Elliott Cole MDOther ProviderActiveStart: December 28, 2024 Yaron Devi MDOther ProviderActiveStart: December 28, 2024 Candi Stone , DENTAL HYGIENE INSTRUCTOR-COther ProviderActiveStart: December 28, 2024 Matthew Grey , [...] Care Provider Active Start: December 28, 2024 Aspen Abdi Provider, Attending Provider, Other ProviderActiveStart: December 28, 2024 Noemy Bates RNOther ProviderActiveStart: December 28, 2024 Carolynn Jacobs , CAROLOther ProviderActiveStart: December 28, 2024 Gretel Kirkland , CAROLOther ProviderActiveStart: December 28, 2024 Merissa Balbuena , CAROLOther ProviderActiveStart: December 28, 2024 Pati Brice , RNOther ProviderActiveStart: December 28, 2024 Vicky Jasso MDOther ProviderActiveStart: December 28, 2024 Kofi Bustamante , DOOther ProviderActiveStart: December 28, 2024 Mario Salazar MDOther ProviderActiveStart: December 28, 2024 Rachid Adhikari , DOOther ProviderActiveStart: December 28, 2024 Yassine De León MDOther ProviderActiveStart: December 28, 2024 Sudha oSod MDOther ProviderActiveStart: December 28, 2024 Micah Curry [...] ProviderActiveStart: December 28, 2024 Candi Stone , DENTAL HYGIENE INSTRUCTOR-COther ProviderActiveStart: December 28, 2024 Matthew Grey , APRNOther ProviderActiveStart: December 28, 2024 Kuldeep See MDOther ProviderActiveStart: December 28, 2024 Kings Goncalves MDOther ProviderActiveStart: December 28, 2024 Eloy Resendiz MDOther ProviderActiveStart: December 28, 2024 Jon Cowan MDOther ProviderActiveStart: December 28, 2024 Elias Fermin MDOther ProviderActiveStart: December 28, 2024 Mirian Calvo , DOOther ProviderActiveStart: December 28, 2024 Vish Bajwa , DOOther ProviderActiveStart: December 28, 2024 Krysten Mcclelland , APRNOther ProviderActiveStart: December 28, 2024 Emile Reynolds , DOOther ProviderActiveStart: December 28, 2024 Carole Burden MDOther ProviderActiveStart: December 28, 2024 Siobhan Rucker , APRNOther ProviderActiveStart: December 28, 2024 Aislinn Maria , APRNOther ProviderActiveStart: December 28, 2024 Los Calderon MDOther ProviderActiveStart: December 28, 2024 Live Grajeda MDOther ProviderActiveStart: December 28, 2024 Doron Diaz , DOOther ProviderActiveStart: December 28, 2024 Kia Garg , DOOther ProviderActiveStart: December 28, 2024 Wolfgang [...] Active Start: January 03, 2025 Sotero Black , MDAdmit Provider, Other ProviderActiveStart: January 03, 2025 Noemy Bates , CAROLOther ProviderActiveStart: January 03, 2025 Carolynn Jacobs , CAROLOther ProviderActiveStart: January 03, 2025 Gretel Kirkland , CAROLOther ProviderActiveStart: January 03, 2025 Merissa Balbuena , CAROLOther ProviderActiveStart: January 03, 2025 Pati Brice , CAROLOther ProviderActiveStart: January 03, 2025 Vicky Jasso MDOther ProviderActiveStart: January 03, 2025 Kofi Bustamante DOOther ProviderActiveStart: January 03, 2025 Mario Salazar MDOther ProviderActiveStart: January 03, 2025 Rachid Adhikari DOOther ProviderActiveStart: January 03, 2025 Yassine De León MDOther ProviderActiveStart: January 03, 2025 Sudha Sood MDOther ProviderActiveStart: January 03, 2025 Micah Curry DOOther ProviderActiveStart: January 03, 2025 Nav Peterson MDOther ProviderActiveStart: January 03, 2025 Zoie Field , APRNOther ProviderActiveStart: January 03, 2025 Jaye Jorgensen MDOther ProviderActiveStart: January 03, 2025 Augustine Bishop MDOther ProviderActiveStart: January 03, 2025 Jan Prasad MDOther ProviderActiveStart: January 03, 2025 Shannan Valentin MDOther ProviderActiveStart: January 03, 2025 Micah Lyn DOOther ProviderActiveStart: January 03, 2025 Elliott Cole MDOther ProviderActiveStart: January 03, 2025 Yaron Devi MDOther ProviderActiveStart: January 03, 2025 Candi Stone , DENTAL HYGIENE INSTRUCTOR-COther ProviderActiveStart: January 03, 2025 Matthew Grey , APRNOther ProviderActiveStart: January 03, 2025 Kuldeep See MDOther ProviderActiveStart: January 03, 2025 Kings Goncalves MDOther ProviderActiveStart: January 03, 2025 Eloy Resendiz MDOther ProviderActiveStart: January 03, 2025 Jon Cowan MDOther ProviderActiveStart: January 03, 2025 Elias Fermin MDOther ProviderActiveStart: January 03, 2025 Mirian Calvo , DOOther ProviderActiveStart: January 03, 2025 Vish Bajwa , DOOther ProviderActiveStart: January 03, 2025 Krysten Mcclelland [...] MDOther ProviderActiveStart: January 03, 2025 Lisa Sotelo , APRNOther ProviderActiveStart: January 03, 2025 Magnolia Pierce [...] MDOther ProviderActiveStart: January 03, 2025 Jerry Velasquez , APRNOther ProviderActiveStart: January 03, 2025 Son Nicole , MDAttending Provider, Other ProviderActiveStart: January 03, 2025 Erica Tian , DOOther ProviderActiveStart: January 03, 2025 Gilles Kirkland , APRNOther ProviderActiveStart: January 03, 2025 Team Status: Active Member Role Status Dates Yas Linda DO Primary Care Provider Active Start: January 04, 2025 Sotero Black , MDAdmit Provider, Other ProviderActiveStart: January 04, 2025 Noemy Bates , CAROLOther ProviderActiveStart: January 04, 2025 Carolynn Jacobs , CAROLOther ProviderActiveStart: January 04, 2025 Gretel Kirkland , CAROLOther ProviderActiveStart: January 04, 2025 Merissa Balbuena , CAROLOther ProviderActiveStart: January 04, 2025 Pati Brice , CAROLOther ProviderActiveStart: January 04, 2025 Vicky Jasso MDOther ProviderActiveStart: January 04, 2025 Kofi Bustamante , DOOther ProviderActiveStart: January 04, 2025 Mario Salazar MDOther ProviderActiveStart: January 04, 2025 Rachid Adhikari DOOther ProviderActiveStart: January 04, 2025 Yassine De León MDOther ProviderActiveStart: January 04, 2025 Sudha Sood MDOther ProviderActiveStart: January 04, 2025 Micah Curry , DOOther ProviderActiveStart: January 04, 2025 Nav Peterson [...] Devi MDOther ProviderActiveStart: January 04, 2025 Candi tSone , DENTAL HYGIENE INSTRUCTOR-COther ProviderActiveStart: January 04, 2025 Matthew Grey , [...] MDOther ProviderActiveStart: January 04, 2025 Doron Diaz DOOther ProviderActiveStart: January 04, 2025 Kia Garg [...] APRNOther ProviderActiveStart: January 04, 2025 Aura Kay RNOther ProviderActiveStart: January 04, 2025 Winsome Goff MDAttending Provider, Other ProviderActiveStart: January 04, 2025 Judy Macias NP-COther ProviderActiveStart: January 04, 2025 Zahida Flowers MDOther ProviderActiveStart: January 04, 2025 Kaitlynn Emanuel MDOther ProviderActiveStart: January 04, 2025 Ramesh Rascon MDOther ProviderActiveStart: January 04, 2025 Jerry Velasquez , APRNOther ProviderActiveStart: January 04, 2025 Son Nicole MDOther ProviderActiveStart: January 04, 2025 Erica Tian DOOther ProviderActiveStart: January 04, 2025 Gilles Kirkland , APRNOther ProviderActiveStart: January 04, 2025 Team Status: Active Member Role Status Dates Yas Linda DO Primary Care Provider Active Start: January 06, 2025 Sotero Black MDAdmit Provider, Other ProviderActiveStart: January 06, 2025 Noemy Bates RNOther ProviderActiveStart: January 06, 2025 Carolynn Jacobs , CAROLOther ProviderActiveStart: January 06, 2025 Gretel Kirkland , CARLOOther ProviderActiveStart: January 06, 2025 Merissa Balbuena RNOther ProviderActiveStart: January 06, 2025 Pati Brice RNOther ProviderActiveStart: January 06, 2025 Vicky Jasso MDOther [...] ProviderActiveStart: January 06, 2025 Candi Stone , DENTAL HYGIENE INSTRUCTOR-COther ProviderActiveStart: January 06, 2025 Matthew Grey , APRNOther ProviderActiveStart: January 06, 2025 Kuldeep See MDOther ProviderActiveStart: January 06, 2025 Kings Goncalves MDOther ProviderActiveStart: January 06, 2025 Eloy Resendiz MDOther ProviderActiveStart: January 06, 2025 Jon Cowan MDOther ProviderActiveStart: January 06, 2025 Elias Fermin MDOther ProviderActiveStart: January 06, 2025 Mirian Calvo DOOther ProviderActiveStart: January 06, 2025 Vish Bajwa , DOOther ProviderActiveStart: January 06, 2025 Krysten Obika , APRNOther ProviderActiveStart: January 06, 2025 Emile Reynolds , DOOther ProviderActiveStart: January 06, 2025 Carole Burden [...] MDOther ProviderActiveStart: January 06, 2025 Judy Macias NP-Mohither ProviderActiveStart: January 06, 2025 Zhaida Flowers MDOther ProviderActiveStart: January 06, 2025 Kaitlynn Emanuel MDOther ProviderActiveStart: January 06, 2025 Ramesh Rascon MDOther ProviderActiveStart: January 06, 2025 Jerry Velasquez , APRNOther ProviderActiveStart: January 06, 2025 Son Nicole MDOther ProviderActiveStart: January 06, 2025 Erica Tian , DOOther ProviderActiveStart: January 06, 2025 Gilles Kirkland , APRNOther ProviderActiveStart: January 06, 2025 Brenda Yamila , APRNAttending ProviderActiveStart: January 06, 2025 Team Status: Active Member Role Status Dates Yas Linda DO Primary Care Provider Active Start: January 10, 2025 Erica Dalton , CMAAttending ProviderActiveStart: January 10, 2025 Team Status: Inactive Member Role Status Dates Walker Soria MD Attending Provider Active Star t: January 14, 2025 End: January 14enalbert Linda , DOPrimary Care ProviderActiveStart: January 14, 2025 End: January 14, 2025 Team Status: Inactive Member Role Status Dates Yas Linda DO Primary Care Provider Active Start: January 14, 2025 End: January 14, 2025Thsekou Soria , MDAttending ProviderActiveStart: January 14, 2025 End: January 14, 2025 Team Status: Inactive Member Role Status Dates Sotero Black MD Attending Provider Active Star t: January 16, 2025 End: January 16, 2025PHYSICIAN NO FAMILYPrimary Care ProviderActiveStart: January 16, 2025 End: January 16, 2025 Team Status: Inactive Member Role Status Dates Zahida Flowers MD Attending Provider Active Start : January 20, 2025 End: January 20enalbert Linda , DOPrimary Care ProviderActiveStart: January 20, 2025 End: January [...] Team Status: Active Member Role Status Michelle Soria MD Attending Provider Active Star t: February 25, 2025 Yas Linda , DOPrimary Care ProviderActiveStart: February 25, 2025 Team Status: Active Member Role Status Dates Yas Linda DO Primary Care Provide r, Attending Provider Active Start: February 01, 2024 Team Status: Active Member Role Status Dates Yas Linda , DO Primary Care Provider Active Start: March 01, 2024 Kalia Sánchez , MDReferring ProviderActiveStart: March 01, 2024 Chivo Keller II, [...] Yas Linda DO Primary Care Provider Active PEARL Saraheferring ProviderActiveTimdomo Keller II, DOAttending ProviderActive Team Status: Inactive Member Role Status Dates Yas Linda DO Primary Care Provider Active Danuta Kelly , DENTAL HYGIENE INSTRUCTOR-CAttending ProviderActive Team Status: Inactive Member Role Status Dates Yas Linda DO Primary Care Provider Active Ramesh Rascon , MDAttending ProviderActiveTeam MemberRelationshipSpecialty Start DateEnd Date Yas Linda MD [address] [place] [address] PCP - GeneralInternal Ntwwswot79/9/23Team MemberRelationshipSpecialtyStart Date End Date Yas Linda MD [address] [place] [address] PCP - GeneralInternal Lulddylc14/9/23Team MemberRelationshipSpecialtyStart Date End Date Yas Linda MD [address] [facility] [place] [address] PCP - GeneralInternal Yfcxmaiu05/9/23Team MemberRelationshipSpecialtyStart Date End Date Yas Linda DO [address] [place] [address] PCP - GeneralInternal Medicine11/11/21Team MemberRelationshipSpecialtyStart Date End Date Yas Linda DO [address] [place] [address] PCP - GeneralInternal Medicine11/11/21Team MemberRelationshipSpecialtyStart Date End Date Yas Linda DO [address] [place] [address] PCP - GeneralInternal Medicine11/11/21Team MemberRelationshipSpecialtyStart Date End Date Yas Linda DO PCP - GeneralInternal Medicine11/11/21 Team Status: Active Member Role Status Dates Yas Linda DO Primary Care Provider Active Start: October 11, 2024 Marybeth Cates ProviderActiveStart: October 11, 2024 Team Status: Active Member Role Status Dates Yas Linda DO Primary Care Provide r, Attending Provider Active Start: November 07, 2024 Team Status: Active Member Role Status Dates Yas Linda DO Primary Care Provider Active Start: December 27, 2024 Aspen Abdi Provider, Attending ProviderActiveStart: December 27, 2024 Team Status: Active Member Role Status Dates Yas Linda DO Primary Care Provider Active Start: December 30, 2024 Aspen Abdi Provider, Attending Provider, Other ProviderActiveStart: December 30, 2024 Noemy Bates , RNOther ProviderActiveStart: December 30, 2024 Carolynn Jacobs , RNOther ProviderActiveStart: December 30, 2024 Gretel Kirkland , CAROLOther ProviderActiveStart: December 30, 2024 Merissa Balbuena , RNOther ProviderActiveStart: December 30, 2024 Pati Brice , RNOther ProviderActiveStart: December 30, 2024 Vicky Jasso MDOther ProviderActiveStart: December 30, 2024 Kofi Bustamante , DOOther ProviderActiveStart: December 30, 2024 Mario Salazar MDOther ProviderActiveStart: December 30, 2024 Rachid Adhikari , DOOther ProviderActiveStart: December 30, 2024 Yassine De [...] MDOther ProviderActiveStart: December 30, 2024 Candi Stone DENTAL HYGIENE INSTRUCTOR-COther ProviderActiveStart: December 30, 2024 Matthew Grey , APRNOther ProviderActiveStart: December 30, 2024 Kuldeep See MDOther ProviderActiveStart: December 30, 2024 Kings Goncalves MDOther ProviderActiveStart: December 30, 2024 Eloy Resendiz MDOther ProviderActiveStart: December 30, 2024 Jon Cowan MDOther ProviderActiveStart: December 30, 2024 Elias Fermin MDOther ProviderActiveStart: December 30, 2024 Mirian Calvo , DOOther ProviderActiveStart: December 30, 2024 Vihs Bajwa , DOOther ProviderActiveStart: December 30, 2024 [...] APRNOther ProviderActiveStart: December 30, 2024 Alvina Ch APRNOther ProviderActiveStart: December 30, 2024 Aura Kay RNOther ProviderActiveStart: December 30, 2024 Winsome Goff MDOther ProviderActiveStart: December 30, 2024 Judy Macias NP-COther ProviderActiveStart: December 30, 2024 Zahida Flowers MDOther ProviderActiveStart: December 30, 2024 Kaitlynn Emanuel MDOther ProviderActiveStart: December 30, 2024 Team Status: Active Member Role Status Dates Walker Soria MD Attending Provider Active Star t: January 14, 2025 Alison Lauren [facility] ProviderActiveStart: January 14, 2025 Team Status: Inactive Member Role Status Dates Sotero Black MD Attending Provider Active Star t: January 16, 2025 End: January 16, 2025Team MemberRelationshipSpecialtyStart DateEnd Date Yas Linda, DO PCP - GeneralInternal Medicine11/11/21Team MemberRelationshipSpecialtyStart Date End Date Yas Linda DO [address] [place] [address] PCP - GeneralInternal Medicine02/18/25Team MemberRelationshipSpecialtyStart Date End Date Yas Linda DO [address] [place] [address] PCP - GeneralInternal Medicine02/18/25Team MemberRelationshipSpecialtyStart Date End Date Yas Linda DO [address] [place] [address] PCP - GeneralInternal Medicine02/18/25Team MemberRelationshipSpecialtyStart Date End Date Yas Linda DO [address] [place] [address] PCP - GeneralInternal Medicine02/18/25Team MemberRelationshipSpecialtyStart Date End Date Yas Linda DO [address] [place] [address] PCP - GeneralInternal Medicine02/18/25Team MemberRelationshipSpecialtyStart Date End Date Yas Linda DO [address] [place] [address] PCP - GeneralInternal Medicine02/18/25Team MemberRelationshipSpecialtyStart Date End Date Yas Linda DO [address] [place] [address] PCP - GeneralInternal Medicine02/18/25Team MemberRelationshipSpecialtyStart Date End Date Yas Linda DO [address] [place] [address] PCP - GeneralInternal Medicine02/18/25Team MemberRelationshipSpecialtyStart Date End Date Yas Linda DO [address] [place] [address] PCP - GeneralInternal Medicine02/18/25 Team Status: Inactive Member Role Status Dates Yas Linda DO Primary Care Provide r, Attending Provider Active Start: March 25, 2025 End: March 25, 2025Team MemberRelationshipSpecialtyStart DateEnd Date Yas Linda DO [address] [place] [address] PCP - GeneralInternal Medicine02/18/25Team MemberRelationshipSpecialtyStart Date End Date Yas Linda DO [address] [place] [address] PCP - GeneralInternal Medicine02/18/25Team MemberRelationshipSpecialtyStart Date End Date Yas Linda, DO [address] [place] [address] PCP - GeneralInternal Medicine02/18/25Team MemberRelationshipSpecialtyStart Date End Date Yas Linda, DO [address] [place] [address] PCP - GeneralInternal Medicine02/18/25am MemberRelationshipSpecialtyStart Date End Date Yas Linda DO [address] [place] [address] PCP - GeneralInternal Medicine02/18/25Team MemberRelationshipSpecialtyStart Date End Date Yas Linda, DO [address] [place] [address] PCP - GeneralInternal Medicine02/18/25Team MemberRelationshipSpecialtyStart Date End Date Yas Linda, DO [address] [place] [address] PCP - GeneralInternal Medicine02/18/25Team MemberRelationshipSpecialtyStart Date End Date Yas Linda, DO [address] [place] [address] PCP - GeneralInternal Medicine02/18/25Team MemberRelationshipSpecialtyStart Date End Date Yas Linda, DO [address] [place] [address] PCP - GeneralInternal Medicine02/18/25Team MemberRelationshipSpecialtyStart Date End Date Yas Linda DO [address] [place] [address] PCP - GeneralInternal Medicine02/18/25 Team Status: Inactive Member Role Status Dates Yas Linda DO Primary Care Provider Active Start: January 28, 2025 End: January 28enalbert Linda DOAttending ProviderActiveStart: January 28, 2025 End: January 28, 2025Team MemberRelationshipSpecialtyStart DateEnd Date Yas Linda DO [address] [facility] [place], [facility] PCP - GeneralInternal Medicine02/18/25Team MemberRelationshipSpecialtyStart Date End Date Yas Linda DO [address] [place] [address] PCP - GeneralInternal Medicine02/18/25Team MemberRelationshipSpecialtyStart Date End Date Yas Linda DO [address] [place] [address] PCP - GeneralInternal Medicine02/18/25Team MemberRelationshipSpecialtyStart Date End Date Yas Linda DO [address] [place] [address] PCP - GeneralInternal Medicine02/18/25Team MemberRelationshipSpecialtyStart Date End Date Yas Linda DO [address] [facility] [place] [address] PCP - GeneralInternal Medicine02/18/25am MemberRelationshipSpecialtyStart Date End Date Yas Linda, DO [address] [facility] [place] [address] PCP - GeneralInternal Medicine02/18/25Team MemberRelationshipSpecialtyStart Date End Date Yas Linda, DO [address] [facility] [place] [address] PCP - GeneralInternal Medicine02/18/25Team MemberRelationshipSpecialtyStart Date End Date Yas Linda, DO [address] [facility] [place] [address] PCP - GeneralInternal Medicine02/18/25am MemberRelationshipSpecialtyStart Date End Date Yas Linda, DO [address] [facility] [place] [address] PCP - GeneralInternal Medicine02/18/25Team MemberRelationshipSpecialtyStart Date End Date Yas Linda, DO [address] [facility] [place] [address] PCP - GeneralInternal Medicine02/18/25Team MemberRelationshipSpecialtyStart Date End Date Yas Linda, DO [address] [facility] [place] [address] PCP - GeneralInternal Medicine02/18/25Team MemberRelationshipSpecialtyStart Date End Date MaddiYas Bel [address] [place] [address] PCP - [facility]En[facility]02/18/25Team MemberRelationshipSpecialtyStart Date End Date Maddi Yas Staples DO [address] [place] [address] PCP - GeneralInternal Medicine02/18/25Team MemberRelationshipSpecialtyStart Date End Date Yas Linda Bel [address] [place] [address] PCP - GeneralInternal Medicine02/18/25 Team Status: Active Member Role Status Dates Yas Linda DO Primary Care Provider Active Start: July 21, 2025 Erica Dalton CMAAttending ProviderActiveStart: July 21, 2025 Team Status: Inactive Member Role Status Dates Yas Linda DO Primary Care Provider Active Start: July 22, 2025 End: July 22rick Linda DOAttending ProviderActiveStart: July 22, 2025 End: July 22, 2025 Team Status: Active Member Role/Relationship Status Dates Yas Linda DO Primary Care Provider Active Team Status: Inactive Member Role/Relationship Status Dates Yas Linda DO Primary Care Provider Active Start: June 06, 2025 End: June 06samantha Mayfield NP-CAttending ProviderActiveStart: June 06, 2025 End: June 06, 2025 Team Status: Active Member Role/Relationship Status Dates Yas Linda DO Primary Care Provider Active Start: June 06, 2025 PEARL Saraheferring ProviderActiveStart: June 06, 2025 Chivo Keller II, DOAttending ProviderActiveStart: June 06, 2025 Team Status: Active Member Role/Relationship Status Dates Yas Linda DO Primary Care Provider Active Start: July 01, 2025 Yas Ball , DOAttending ProviderActiveStart: July 01, 2025 Team Status: Inactive Member Role/Relationship Status Dates Yas Linda , DO Primary Care Provider Active Start: July 07, 2025 End: July 07, 2025Sidra Pancho DOAttending ProviderActiveStart: July 07, 2025 End: July 07, 2025 Team Status: Inactive Member Role/Relationship Status Dates Yas Linda Primary Care Provider Active Start: July 08, 2025 End: July 08enalbert Linda DOAttending ProviderActiveStart: July 08, 2025 End: July 08, 2025 Team Status: Active Member Role/Relationship Status Dates Yas Linda Primary Care Provider Active Start: July 21, 2025 Erica Dalton CMAAttending ProviderActiveStart: July 21, 2025 Team Status: Inactive Member Role/Relationship Status Dates Yas Linda Primary Care Provider Active Start: July 22, 2025 End: July 22enalbert Linda DOAttending ProviderActiveStart: July 22, 2025 End: July 22, 2025 Team Status: Active Member Role/Relationship Status Dates Yas Linda Primary Care Provider Active Start: August 13, 2025 Zahida Lionel , MDAttending ProviderActiveStart: August 13, 2025 Team Status: Inactive Member Role/Relationship Status Dates Yas Linda Primary Care Provider Active Start: August 21, 2025 End: August 21bdul Lionel , MDAttending ProviderActiveStart: August 21, 2025 End: August 21, 2025 Goals (unrecognized section and content) Goals [...] FOR VISIT (unrecogniz ed section and content) ReasonCommentsNail careJejerilyn Oliver is a 85 y.o. male. Pt is here today requesting nail care/BS: 117 A1C: ?/LV Dr. Linda 05-05-2025/SS: 11-12Reason CommentsDM Foot CarePt is here today requesting nail careBS: 117 A1C: ?LV Dr. Linda 05-05-2025SS: 11-12ReasonCommentsDM Foot CareJejerilyn Oliver 84yo New Patient present for diabetic nail care. Patient states it is difficult for him to reach his nail to trim. Patient relates his Diabetes is diet controlled at this time. A1C 6.[address] Linda 01/30/2025. SS 12.5ReasonCommentsSleep ApneaThyroid resultsRepeat lab workLab Results4 month Follow uprefillCOVID [...] BE BASED ON THE PRIMARY CLINICAL RECORDS. [employer] provides no warranty or guarantee of the accuracy or completeness of information in this document.
[2025-09-16 11:42] LABS: Hematocrit 39.4 % (42.0-54.0); Hemoglobin 12.8 g/dL (14.0-18.0); Immature Granulocytes Abs Auto 0.05 10^3/uL (0.00-0.03); Immature Granulocytes Pct Auto 0.6 % (0.0-0.5); Lymphocytes Absolute Auto 1.9 10^3/uL (1.2-3.8); Mean Corpuscular HGB Conc 32.5 g/dL (29.9-35.2); Mean Corpuscular Hemoglobin 31.1 pg (25.9-34.0); Mean Corpuscular Volume 95.6 fL (80.0-94.0); Platelet Count 192 10^3/uL (150-450); Red Blood Count 4.12 10^6/uL (4.70-6.10); White Blood Count 7.9 10^3/uL (4.0-11.0)
[2025-09-16 11:52] LABS: Anion Gap 10.8; Blood Urea Nitrogen 57.0 mg/dL (7.0-18.0); Calcium 8.9 mg/dL (8.5-10.1); Carbon Dioxide 32.1 mmol/L (21.0-32.0); Chloride 104 mmol/L (98-107); Estimated GFR (African America 34 (>=60 mL/min/1.73m^2); Estimated GFR (Non-African Ame 28 (>=60 mL/min/1.73m^2); Glucose 106 mg/dL (74-106); Potassium 3.9 mmol/L (3.5-5.1); Sodium 143 mmol/L (136-145)
== END 2025-09-16 11:25 | disposition home or self-care (01) ==
LOC: LAB 11:25
PROVIDERS: PCP Internal Medicine; Visit Provider Internal Medicine Cardiovascular Disease
DX: I48.92 Unspecified atrial flutter (principal)
CPT/HCPCS: 36415; 80048; 85025

== ENCOUNTER 2025-10-01 12:32 | Outpatient (OUT) | payer MEDICARE, SELFPAY ==
--- OUTSIDE RECORDS SUMMARY | 2025-09-25 10:00 | XMS_ITS | Encounter Summary ---
Author Organization [facility] Address [address] [place] [address] Care Team Providers Care Investor Relations Analyst Name Role Phone Arnie Lund DO Primary Care Provider [phone] Encounter Details DateTypeDepartmentCare Team (Latest Contact Info)Cbjqksmxcmd05/11/2025 10:[address] [facility] [address] [place] [phone] Pre-operative cardiovascular examination, ICD in place Social History Tobacco UseTypesPacks/DayYears UsedDateSmoking Tobacco: FormerCigarettesQuit: 1982Smokeless Tobacco: NeverAlcohol UseStandard Drinks/WeekCommentsYes0 (1 standard drink = 0.6 oz pure alcohol)OCCASIONALPHQ-2AnswerDate RecordedPatient Health Questionnaire-2 Eljow046UT Safety & EnvironmentAnswerDate RecordedFear of Current or Ex-PartnerNot on file12/07/2023Emotionally AbusedNot on file12/07/2023hysically AbusedNot on 12/07/2023Sexually AbusedNot on file12/07/2023hysically or Sexually AbusedNot on 12/07/2023Sex and Gender InformationValueDate RecordedSex Assigned at BmplzFqgy86/28/2023 6:32 AM EDT Legal IzeGnff5204/13/2022 11:44 PM EDTGender IkgynulsUuzj86/28/2023 6:32 AM EDT Sexual OrientationHeterosexual or Gaenyafd00/28/2023 6:32 AM EDTdocumented as of this encounter Plan of Treatment Not on file documented as of this encounter Procedures Procedure NamePriorityDate/TimeAssociated DiagnosisCommentsCARDIAC DEVICE CHECK CHECK - FGPIJWWayoxyf58/16/2025 10:34 AM EST Pre-operative cardiovascular examination, ICD in place documented in this encounter Results * CARDIAC DEVICE CHECK - REMOTE - ICD (09/30/2025 10:34 AM EST)Specimen (Source) Anatomical Location / LateralityCollection Method / VolumeCollection Time Received Time Narrative Authorizing ProviderResult TypeResult StatusPaul Jan MDCV IMPLANTABLE CARDIAC DEVICE PROCEDURESFinal ResultPerforming OrganizationAddressCity/State/ZIP Code Phone Number CPACS documented in this encounter Visit Diagnoses Diagnosis Pre-operative cardiovascular examination, ICD in place Pre-operative cardiovascular examination documented in this encounter Care Teams Team MemberRelationshipSpecialtyStart DateEnd Date Arnie Lund DO [address] [place] [address] PCP - General06/07/22documented as of this encounter
--- OUTSIDE RECORDS SUMMARY | 2025-10-01 07:20 | XMS_ITS | Continuity of Care Document ---
Author Organization [facility] Address [address] [place] [address] Phone Care Team Providers Care Gear Nicker Name Role Phone Arnie Lund DO Primary Care Provider Sidra Deleon DO Attending Provider Arnie Lund DO Attending Provider [phone] Erica Dalton CMA Attending Provider Unavaila Augustine Oconnell Attending Provider Mariusz Montoya MD Attending Provider [phone] Care Teams Patient Care Team Team Status: Active Member Role/Relationship Status Dates Arnie Lund DO Primary Care Provider Active Visit Care Team Team Status: Inactive Member Role/Relationship Status Dates Arnie Lund DO Primary Care Provider Active Start: July 07, 2025 End: July 07, 2025Sidra Deleon DOAttcindy ProviderActiveStart: July 07, 2025 End: July 07, 2025 Visit Care Team Team Status: Inactive Member Role/Relationship Status Dates Arnie Lund DO Primary Care Provider Active Start: July 08, 2025 End: July 08Sara Álvarez ProviderActiveStart: July 08, 2025 End: July 08, 2025 Visit Care Team Team Status: Active Member Role/Relationship Status Dates Arnie Lund DO Primary Care Provider Active Start: July 21, 2025 Erica Dalton CMAAttending ProviderActiveStart: July 21, 2025 Visit Care Team Team Status: Inactive Member Role/Relationship Status Dates Arnie Lund DO Primary Care Provider Active Start: July 22, 2025 End: July 22Giana Álvarezending ProviderActiveStart: July 22, 2025 End: July 22, 2025 Visit Care Team Team Status: Active Member Role/Relationship Status Dates Arnie Ludn DO Primary Care Provider Active Start: August 13, 2025 Zahidatri Flowers MDAttending ProviderActiveStart: August 13, 2025 Visit Care Team Team Status: Inactive Member Role/Relationship Status Dates Arnie Lund DO Primary Care Provider Active Start: August 21, 2025 End: August 21bdtri Flowers MDAttending ProviderActiveStart: August 21, 2025 End: August 21, 2025 Visit Care Team Team Status: Active Member Role/Relationship Status Dates Arnie Lund DO Primary Care Provider Active Start: September 16, 2025 Marybeth Cates ProviderActiveStart: September 16, 2025 Patient Care Team Team Status: Inactive Member Role/Relationship Status Dates Arnie Lund DO Primary Care Provider Active Start: October 01, 2025 End: October 01rick Lund DOAttending ProviderActiveStart: October 01, 2025 End: October 01, 2025 Chief Complaint and Reason for Visit Chief Complaint Admit Date 3 mo f/u July 08, 2025 9:17am Amb Documentation July 21, 2025 9: 45am arm bruising/ ER follow up July 22, 2025 3:46pm 4 month f/u August 21, 2025 2 :06pm 3 month f/u October 01, 2025 10:39am Reason for Visit Admit Date Hyposomnia July 07, 2025 10:20am Hypoxia July [...] chronic kidney disease August 21, 2025 2:06pm Atrial fibrillation October 01, 2025 10:39am Chronic bronchitis, simple September 10:39am Chronic HFrEF (heart failure with reduced ejection fraction) October 01, 2025 10:39am Chronic kidney disease October 01 10:39am Colon cancer October 01, 2025 10:39am Hypercholesteremia October 01, 2025 10:39am Hypothyroidism due to medication Decee r 2024 10:39am Nonischemic dilated cardiomyopathy Decem 2024 10:39am Obstructive sleep apnea October 01, 2 025 10:39am Type 2 diabetes mellitus with hyperglyce yossi October 01, 2025 10:39am Allergies, Adverse Reactions, Alerts Allergen Type Severity Reaction Last Updated Verified Status simvastatin All[facility] Unknown [facility] 11:[facility] Yes Active Lcssene-IHC-AzC Reductase Inhibitor Allergy Unknown Muscle Pain September 11:00am Yes Active tramadol Allergy Unknown Itching October 01, 2025 11:00am Yes Active niacin ER Allergy Unknown itching February 28, 2025 11:59am No Active Social History Smoking Status Status Start Date End Date Date of Observa tion Ex-smoker (finding) January 20, 2025 11:12am Observation Status Observation Response Date of Response Legal Sex Male (finding) Sex Assigned At BirthMaleJuly 1939 Family History Relationship Condition Age at Onset Recorded Date/T sergio father Congestive heart failure Unknown DeceasedUnknownHeart diseaseUnknownmotherType 2 diabetes mellitusUnknownDeceased UnknownHeart diseaseUnknownbrotherMalignant neoplasmUnknownsonCongenital pure red cell aplasiaUnknown Problems Active Problems Problem Diagnosis/Recorded Date Onset Date Status C omments History of thyrotoxicosis April 07, 2025 4:12pm Unknown Active Primary insomniaSeptember 2024 9:49amUnknownActiveObstructive sleep apnea December 15, 2023 1:36pmUnknownActiveScreening PSA (prostate specific antigen) September 09, 2024 9:36amUnknownActivePSA: 0.91 - 07/2024, 0.98 - 02/2025Type 2 diabetes mellitus with diabetic chronic kidney diseaseApril 2024 7:54am UnknownActiveType 2 diabetes mellitus with hyperglycemiaMarch 2023 10:58am UnknownActiveNonischemic dilated cardiomyopathyMarch 2023 1:36pmUnknown ActiveLHC: nonobstructive coronary disease - 2016,s/p ICD - 10/2019, BiV ICD - 05/2023Secondary hyperparathyroidismApril 2024 7:54amUnknownActiveChronic bronchitis, simpleMarch 2023 11:02amUnknownActiveColon cancerOctober 2020 12:21pmUnknownActiveHemicolectomy 08/2021,Surveillance colonoscopy 2023 (repeat 2 years)Atrial fibrillationJuly 2024 4:10pmUnknownActiveBiV ICD 05/2023,DCCV - 10/2024,HypercholesteremiaAugust 2020 5:12pmUnknownActive Hypothyroidism due to medicationMarch 2023 1:36pmUnknownActiveChronic HFrEF (heart failure with reduced ejection fraction)December 16, 2023 10:59amUnknown ActiveEcho: LVEF 25%, RV reduced function, RVSP 61, SANJAY, mod MR - 02/2023,Echo: LVEF 20-25%, TRISH, normal RV size/function, RVSP 22 - 6hronic kidney diseaseApril 2024 9:23pmUnknownActiveSnoringSeptember 2024 9:50am UnknownActiveIron deficiency anemiaAugust 2020 2:56pmUnknownActiveHypoxia July 07, 2025 9:49amUnknownActiveAcute blood loss anemiaApril 2024 2:25pmUnknownActiveChronic venous insufficiencyMarch 2023 1:36pmUnknown ActivePositive fecal occult blood testMarch 2024 10:07amUnknownActive Bruising at injection siteOctober 2024 9:05pmUnknownActiveAnemia of renal diseaseApril 2024 7:54amUnknownActiveHyposomniaSeptember 2024 9:50am UnknownActiveInactive/Resolved Problems Problem Diagnosis/Recorded Date Onset Date Status C omments Bacteremia due to Streptococcus June 02, 2021 9:15am U nknown Resolved Osteomyelitis of lumbar spineAugust 2020 9:14amUnknownResolvedAcute on chronic anemiaMarch 2024 2:28pmUnknownResolvedStatus post hemiarthroplasty of right hipMarch 2024 3:10pmUnknownResolvedImpaired mobility and activities of daily livingAugust 2020 9:15amUnknownResolvedFemoral neck fractureMarch 2024 10:17amUnknownResolvedMucopurulent chronic bronchitis December 15, 2023 1:36pmUnknownResolvedMalignant neoplasm of right colonNovember 2020 2:58pmUnknownResolvedCoronary artery diseaseAugust 2020 5:12pm UnknownResolvedA-fibAugust 2020 5:12pmUnknownResolvedhx ablationPulmonary hypertensionMarch 2023 1:36pmUnknownResolvedAspiration pneumoniaMarch 2024 3:14pmUnknownResolvedPrimary hypertensionMarch 2023 1:36pmUnknown ResolvedAcute kidney injury superimposed on CKDMarch 2024 2:26pmUnknown ResolvedParoxysmal atrial fibrillationMarch 2023 1:36pmUnknownResolved Ablation - 10/2019Cardioversion - 10/2024PacemakerAugust 2020 5:12pmUnknown ResolvedPsoas abscess, rightAugust 2020 9:14amUnknownResolved Medications Medication Status Dose Units Route Directions Qty Days Refills S tart Date Stop Date End Date Reason(s) Instructions Adherence Methimazole 10 mg tablet Discontinued 5 MG PO .Q OD February 01, 2024 2:47pmJuly 2023 4:00vhVoyhcfsknbc-Gexdwndiq-Trmjuomn (Trelegy Ellipta) 200-62.5-25 mcg blister with kjkyghReaidpcpkfsv8OMBVMMCOVXMJX Pudks40199Qrs 2023 11:00pmMay 2024 12:09pmMethimazole 10 mg tablet Discontinued0.ROUTE.INXHFXA101Ioby 2023 4:53pmJuly 2023 10:07amtake 1/2 tablet by mouth once daily for 30 DAYSMethimazole 10 mg tabletDiscontinued5 MGPO.GRT71501Otbltq 2023 9:37pmOctober 2023 8:03amAllopurinol 100 mg ckcmpkUhdgqnnbvyig936SAMECegqp54419Srjirw 2023 9:39pmMarch 2024 7:45amMethimazole 10 mg wxitqyJzyceenfdbli0NFXK.COMPLEXDecember 2023 5:32pm November 08, 2024 1:56pm5 mg orally M, W, F;Potassium Chloride 10 mEq tablet,ER particles/crystalsDiscontinued0.ROUTE.ZISGWBY654Jbthudxm 2023 2:36pmMarch 28th, 2025 7:38amTAKE 1 TABLET BY MOUTH DAILYMethimazole 10 mg tablet Xmvxdgjbfnou7JMGC.COMPLEXJanuary 2024 1:56pmMarch 2024 10:38pm5 mg orally M, THAmiodarone 200 mg tcmtslGyfpvymflpyj498GVUPAzptkUvhjgnz 2024 12:00amMarch 2024 7:45amLevothyroxine 25 mcg pqixxiZskccrqdnkkk87AJYDW Jpdmx59068Xwd 7th, 2025 11:00pmMay 2024 2:04pmLevothyroxine 25 mcg tablet Systhtmnjmxz39RWCOZUxysv72917Tyl 2024 2:04pmAugust 2024 3:58pm Vviodqhmpjc-Axlztxzab-Tbndczgb (Trelegy Ellipta) 200-62.5-25 mcg blister with deviceActive0.ROUTE.QLODMYG0437Spj 2024 12:09pmUSE 1 INHALATION BY MOUTH DAILYComplies with drug therapyLevothyroxine 25 mcg vcpmrxYphtkepzarin12UNDBB Euffu58935Pkzynb 2024 3:58pmSeptember 2024 12:03pmLevothyroxine 50 mcg emsnorHozhzizknnfr89OTPUNAutcw70878Cfzzcmmuo 2024 12:03pmSeptember 2024 8:44amAspirin 81 mg Tablet,Delayed Release (Dr/Ec)Jiuqjqhuuqjf16ZLUY DailyMay 2021 11:00pmNovember 2022 1:51pmPropranolol (Inderal) 10 mg OvipskBykowidrxhxf71INAALtliw times dailyMay 2021 11:00pmOctober 2021 7:06amMethimazole 5 mg QvmdgsHoagecamrrla24FDQREjfvg dailyMay 2021 11:00pm December 15, 2023 1:46pmEzetimibe (Zetia) 10 mg SpfbspPeqaptmmojtr79NDTSMypznZdo 2022 11:00pmMarch 2023 1:47pmApixaban (Eliquis) 2.5 mg Tablet Discontinued2.5MGPOTwice dailyMay 2022 11:00pmMarch 2024 7:46amOn Hold: Resume on 12/28/24.Losartan 25 mg ikkdoxNqmlcqykrevc79MFSQPfgbrNoyowbf 2023 11:00pmJune 2024 8:17amOn Hold: Resume on 01/24/25. hold until resumed by PCP or nephrologyMethimazole 10 mg uqbocpPtcwdfiegkth8WSTC.every other dayOctdeaconess hospital 2023 11:00pmDecehonorhealth [facility] 2023 5:32pmAcetaminophen (Acetaminophen Extra Strength) 500 mg qdwxawNsmzvxnjsxfd4828TGKETaywi 8 hours as needed for painOctdeaconess hospital 2023 11:00pm[facility] 2024 7:46amAlbuterol Sulfate 2.5 mg /3 mL (0.083 %) Solution For NebulizationDiscontinued2.5MG SZXUDHLAUWB3A as needed for Shortness Of Qnlcwz012Btznl 2024 11:00pmPark[facility] 2024 7:46amAscorbic Acid (Vitamin C) (Vitamin C) 500 mg TabletDiscontinued 564WLVUKuonx358Jzahr 2024 11:00pm[facility] 2024 7:45amAmoxicillin-Pot Clavulanate 500-125 mg MkjadgScemtuhwvttb2LOJHRFyinw ooowp652EikvbDecember 26, 2024 11:00pm[facility] 2024 7:46amAzithromycin 250 mg MkxjdoLhqbijtarlbe297UJYEQ10S7 20December 26, 2024 11:00pm[facility] 2024 7:46amCalcium Carbonate-Vitamin D3 (Oyster Shell Calcium-Vit D3) 500 mg-5 mcg (200 unit) LdqkveChhpqmgwkdfi4YXTRA 3x/Day with tykxj627Geaay2024 11:00pmKind[facility]20[facility] 7:46amDocusate Sodium 100 mg WdfujdqWqpmpqbfyaxw803LTRKGkniy amrao493Wsmsd 2024 11:00pm January 10, 2025 7:46amMultivitamin With Folic Acid (Thera) 400 mcg Tablet Nlpibbnekaex1TRFYVRhnmg414Etecb 2024 11:00pmApril 2024 1:35pm Polyethylene Glycol 3350 (Healthylax) 17 gram Powder In FiupvhAkcnoxfhpfng44VJFJ Ohutt356Ygvac 2024 11:00pmPark[facility] 2024 7:46amOxycodone 5 mg Tablet Elptyokvryhq03TEXMBuoos 4 hours as needed for Pain Scale 6 - 1431659Fpvly 2024Mar 2024 7:46amFracture of neck of femurOxycodone 5 mg Tablet Irhfuqowmtnl3OXXFVtfxi 4 hours as needed for Pain Scale 1 - 238449Jxvll 2024Mar 2024 7:46amFracture of neck of femurFurosemide 40 mg Tablet Yfktzvggrsvx18WILOXzgzz at 270788230Dresq 2024 11:00pmApril 2024 10:08amMetoprolol Succinate 25 mg Tablet Extended Release 24 YuQrmegnjgdbmm93PH CAAjtox29874Nffza 2024 11:00pmApril 2024 10:09amFerrous Sulfate 324 mg (65 mg iron) Tablet,Delayed Release (Dr/Ec)Jupxrd828DPCGAdtgg96682Egvvf 2024 11:00pmComplies with drug therapyAcetaminophen 500 mg QwwrfbBgpuxjvgnoed995 IJHAY0L as needed for Xzwq53Qtugm 2024 11:00pmApril 2024 1:33pm Apixaban (Eliquis) 2.5 mg TabletDiscontinued2.5MGPOTwice yrfzm580276Fldqu 2024 11:00pmJune 2024 7:59amAmiodarone 200 mg isfggkKzpuozwzhxrb883OUWM Obvun70665Iuqxy 2024 7:45amJuly 2024 3:18pmAllopurinol 100 mg tablet Vuwbsl873XEJMLamhm98198Ftozh 2024 7:45amComplies with drug therapyAscorbic Acid (Vitamin C) (Vitamin C) 500 mg EceljrXcebms741EMSGWurbf67793Ixxpa 2024 7:45amComplies with drug therapyCalcium Carbonate-Vitamin D3 (Oyster Shell Calcium-Vit D3) 500 mg-5 mcg (200 unit) TzjtbbWrvcsspikwol0WONCB4d/Day with hluba87191Hvewg 2024 7:45amApril 2024 10:07amBudesonide (Pulmicort Flexhaler) 180 mcg/actuation Aerosol Powdr Breath TpvmupvsoHgntkwmntqzk2OTF INHALATIONTwice dailyAugust 2020 11:00pmAugust 2020 11:48amPotassium Chloride (Klor-Con 10) 10 mEq Tablet Extended IjttndnTcxexhyjoedo53ZVBEKZrimp00 300August 2020 11:00pmDecember 2023 2:36pmAcetaminophen 500 mg YpxeivKniqkmhrzyqq790BVTAC4G as needed for Hune114378Erafiq 2020 11:00pm July 14, 2021 7:42amAnoro OtqpeouZbsnxvpuuczr08.4zycznjydiyereFyjjw6 June 08, 2021 11:00pmOctober 2020 12:40pmAmlodipine 5 mg Tablet Iteentkhxeii2RRWQPjinj15676Etdkrg 2020 11:00pmOct2020 12:35pm Allopurinol 100 mg HqisgrZpsftrzfvtgq328NBQSWmryn23637Fmshrk 2020 11:00pm June 05, 2024 9:40pmAspirin 81 mg Tablet,Delayed Release (Dr/Ec)Discontinued 33KCXNEbrlh22646Pasaik 2020 11:00pmOct2020 12:37pmBudesonide UiwgefpouwWycoleqdbcim528iewbbthjikqefEgilh vlilh1Tmojpk 24th, 2021 11:00pm August 02, 2021 12:40pmPolyethylene Glycol 3350 (Miralax) 17 gram Powder In RnccriEvvadriwkjgj74BHEKTrmcu71403Cxtlvi 2020 11:00pmSeptember 2020 7:40amNiacin 500 mg XweaagDnyrxh119CNMICdveb32937Mqlxes 2020 11:00pm Complies with drug therapyBumetanide 1 mg IcbcmwLzbppzeatxnl9ZTYXF43N93128Pixakn 2020 11:00pmOctdeaconess hospital 2020 12:40pmMetoprolol Succinate 25 mg Tablet Extended Release 24 IlQllxyuiqnfqh89DBIZEovkq40242Jlqhou 2020 11:00pm August 02, 2021 12:37pmOxycodone 5 mg CzbkudUoduldidgsbj1LMURJ0F as needed for Zcan4200Tvixue 2020Oct2020 12:40pmBack pain Dorsalgia, unspecifiedLidocaine (Lidocaine Pain Relief) 4 % Adhesive Patch,UmoitlbliNhrfigygpfqa5UDEYVJFLOWWBTmlpu55094Gfovzx 2020 11:00pm July 14, 2021 7:41amIsosorbide Dinitrate 10 mg OpwgzqKkxpasdwlles84ZDBG Three times vlxlk92069Lapcfr 2020 11:00pmNovember 2020 8:56am Cholecalciferol (Vitamin D3) 125 mcg (5,000 unit) LfzainkYexyebozgqkx496LSNLV Mhaap22488Zxbfru 2020 11:00pm[facility] 2023 1:47pmCeftriaxone 2 gram Recon OxrdIhxkcszrwjza4LCJUU82N21Boieav 2020 11:00pmSeptember 2020 7:41amFerrous Sulfate 324 mg (65 mg iron) Tablet,Delayed Release (Dr/Ec) Ecmawcxqcpee265TXUNEffve36871Cukyxt 2020 11:00pm[facility] 2021 7:06am Hydralazine 100 mg egpjwaMxfnmuopqrct394FZWNYopsv times daqqx52906Sjeuxi 2020 11:00pmMay 2024 12:01pmOn Hold: Resume on 01/24/25. hold until resumed by PCP or nephrologyHydralazine 50 mg NthgjdTghajejovono377RQFNQrldj times nfvmj81Xwrezl 2020 11:00pmOctdeaconess hospital 2020 12:38pmMetoprolol Succinate 50 mg tablet extended release 24 fcQnofflfswomd207FMKIGrhaaPbhnsrv 2020 11:00pm[facility] 2023 1:46pmAmlodipine 10 mg alvsurLeugjmcnrkyp28XJ PODailyOctober 2020 11:00pmNovember 2020 8:54amhtnBudesonide (Pulmicort Flexhaler) 180 mcg/actuation aerosol powdr breath activated Eppmlzaoldvp507QZAXSVQQRIIONTduxh dailyOctober 2020 11:00pmMay 2022 12:44pmcopdAnoro FmeiqrnUrqxdkbeihtt67.5MCGINHALATIONDailyOct2020 12:40pmMay 2022 12:44pmcopdBumetanide 1 mg mwrevmOegbolotdhfw3NLAHDuwox August 02, 2021 12:40pmMarch 2023 1:39pmHydrocodone-Acetaminophen 5-325 mg CnhwuhYbzzpgjnvdgr1GRQVET8V as needed for Pnvp8243Ouvhoxuk 7th, 2021November 2020 8:56amOther acute postprocedural pain Other acute postprocedural painBumetanide 1 mg zmrnnkIhkunzivijqs3CVETHjggzQhupb 2023 1:39pmMarch 2023 10:32amIsosorbide Dinitrate 10 mg tablet Ccgiidonircm10VMGRNmhuq times dailyOct2021 11:00pmJune 2024 8:16amOn Hold: Resume on 01/24/25. hold until resumed by PCP or nephrology Amlodipine 10 mg etisvnOanppwhvlsrq16MKBRHkknxYzufwrj 2021 11:00pmMarch 2024 7:46amRivaroxaban (Xarelto) 15 mg krcqjtZwivpo61POIJSixtbJzdr 2024 11:00pmmust administer with evening mealComplies with drug therapy Isosorbide Dinitrate 10 mg cqlbljDqnftezfcosg71ZGHXGgzwu iiuog42440Sqqo 2024 11:00pmSeptember 2024 8:32amallow nitrate-free interval of 12-14 hrs per 24-hr periodPotassium Chloride 10 mEq tablet,ER particles/xbqcwqpiGyjdbx58 BWXDBfzicp51763Nrvc 2024 8:17amComplies with drug therapyPotassium Chloride 10 mEq tablet,ER particles/trzqxcjrKdhyddgeduam34HBIVCpcoppSpwyu 2024 11:00pmJune 2024 8:18amAmlodipine 10 mg zmektsQjlnxubbtzup63UVLFLlscf January 27, 2025 11:00pmJuly 2024 3:20pmOn Hold: NoneHydralazine 25 mg qlheqaZbuqbhduteel22WEVJViwuk dailyJuly 2024 11:00pmSeptember 2024 8:32amFurosemide (Lasix) 40 mg orxgqbYeeswzqknkyw27ZWKGSuavu morningJu2024 11:00pmJuly 2024 3:22pmFurosemide (Lasix) 40 mg qqcpwfTcmitk02HSMG Every vadaimc350Wxbr 2024 3:21pmComplies with drug therapyHydralazine 25 mg ofrnweKuwtwukbgxaf79QYHDDhtet times dailySeptember 2024 8:32amDecember 2024 11:48amHydralazine 10 mg uyjekpZxshvgtthbhp11MYOJJwc 2024 11:00pmMay 2024 12:03pmHydralazine 10 mg dbiryzXvftpugtbynd45PHXTOylyv dailyMay 2024 12:01pmJune 2024 8:00amHydralazine 10 mg tablet Dgqfqexrqmfd99QSBQSockj dailyJune 2024 7:59amJuly 2024 3:19pm Isosorbide Dinitrate 10 mg nsnbukGprixg71LHJAUvmbo times dailySeptember 2024 8:32amallow nitrate-free interval of 12-14 hrs per 24-hr periodComplies with drug therapyLevothyroxine 50 mcg ngnlohYbnhui96RDMDLSwsxj45524Dkvdnkrqu 2024 8:41amComplies with drug therapyHydralazine 50 mg fpsgbfMfbqnb54VYHJ Three times xipxs954248Pyzcrdoz 2024 11:48amComplies with drug therapy Ezetimibe 10 mg huwamaYruudf84MHEKWsmmoJqq 16th, 2024 11:00pmComplies with drug therapyUmeclidinium-Vilanterol 62.5-25 mcg/actuation blister with device Brbbluybgdsy8BLOHOZELVNQLOPkszwJvmvr 2023 12:00amMay 2023 10:20pm Aspirin 325 mg ljpmtbKswsualmlnli286GWQFLuxsoJsnsv 2023 12:00amMarch 2023 1:44pmBenazepril 40 mg xspdhkWwkcuyerqwoi49VQPKMdflxRfijc 2023 12:00am September 09, 2024 9:33amBlood Sugar Diagnostic (Contour Next Test Strips) stripActive0.RouteParkview Health 2023 12:00amAs directedFerrous Sulfate 325 mg (65 mg iron) tablet,delayed release (DR/EC)Xhtwxvzokvfc996DFPLCfecvNmgfa 2023 12:00amMay 2023 10:17amBudesonide 180 mcg/actuation aerosol powdr breath dvowsglfbYjrtxsmzmdxb077EGAGLOTFZSAFPYmjnt dailyDec 2023 12:00amMay 2023 10:22pmMetoprolol Succinate 100 mg tablet extended release 24 hr Exhjxuvmapgi880QDILPwpciUuqkk 2023 12:00amMarch 2024 7:46am Methimazole 10 mg socwloGagyudrsfqld4BPPKArjnaUhyex 2023 12:00amApril 2023 2:47pmCholecalciferol (Vitamin D3) 125 mcg (5,000 unit) tabletDiscontinued 5000UNITPODailyParkview Health 2023 12:00amMarch 2024 7:46amFurosemide 80 mg ftharyFxflhdndvyma06HNSHXenpx35380Hjdcs 2023 12:00amMarch 2024 7:46am On Hold: Resume at the discretion of nephrologyMethimazole 10 mg tablet Veywdwnodvta6YWLQ.XII28610Ktho 2023 10:06amAugust 2023 9:40pmCalcium Carbonate-Vitamin D3 (Caltrate 600 Plus D) 600 mg-20 mcg (800 unit) tablet,mxyqjtuoOygpji4BBDIVVbpcmNkvei 2024 11:00pmComplies with drug therapyFurosemide 80 mg dnhkijCizvbuggzaob67PDNTPaxihHpxto 2024 11:00pmMay 2024 12:03pmMetoprolol Succinate 100 mg tablet extended release 24 hr Ikdkjg772NLYPTtvexTwosm 2024 11:00pmComplies with drug therapyAmlodipine 10 mg oyhrnaGmwyrgotxgwd59DIJHGaeqiNctbf 2024 11:00pmApril 2024 10:25am Furosemide 80 mg cxntdvRrrmspezcdep07JNSNFyfzbAjy 2024 12:00pmJuly 2024 3:20pmCephalexin 500 mg fvnvxeoTbfxasojkvrb644JGVUFymzu zzmya7706Ofgo 2024 11:00pmJune 2024 7:54am Immunizations Immunization Event Date Not Given Reason Dose Number [employer] Lot Number Reason(s) Given Vaccine Information Statement (VIS) Detail Administration Location [facility], Pediatric Age 5-11 June 172021 COVID-19 mRNA, Comirnaty (Pfizer)November 12OVID-19 mRNA, Comirnaty (Pfizer)December 03OVID-19 mRNA, Comirnaty ([employer])February 07, 2022 COVID-19 mRNA, Comirnaty (Pfizer)July 15OVID Comirnaty (Pfizer) Tri-Sucrose February 07OVID-19 mRNA Bivalent Booster ([employer])July 10OVID-19 ([employer]) 12Y and olderOctober [id number]- 19 ([employer]) 12Y and olderOctober [id number], unspecifiedMarch 2017Fluzone TIV High-Dose 65YR+July 12, 2016UI689ABFluzone TIV High-Dose 65YR+July 15, 2024UT8470DAFluzone TIV High-Dose 65YR+July 08, 2025U8800CAFPG [facility] CenterInfluenza, trivalentOctober 2016 014264Ummqpvmdy, trivalentOctober [id number], trivalentOctober [id number] vaccine, quadrivalent, adjuvantedSeptember 2021 535178Kcpuoxwsf vaccine, quadrivalent, adjuvantedSeptember 2311005533Ysovm Influenza Z5H3Btohqetr [id number], unspecified formulation July 08, 2015influenza, unspecified formulationSeptember 2015 influenza, unspecified formulationOctober 2016influenza, unspecified formulationOctober 2017influenza, unspecified formulationOctober 2018 influenza, unspecified formulationSeptember 2019influenza, unspecified formulationOctober 2020influenza, unspecified formulationSeptember 2021influenza, unspecified formulationOctober 2018Pneumococcal Conjugate Vaccine, 13 valentAugust 2015Pneumococcal Conjugate Vaccine, 13 valent July 16, 2013Pneumococcal Polysacc. Vaccine, 23 valentOctober 2012 Tetanus, Diphtheria adult, 5 Lf pres free absSept2011Tetanus, Diphtheria adult, 5 Lf pres free absOctober 2012 Medical Equipment Device Date Implanted Device Details Metallic femoral head prosthesis December 23 RAISA: ()[id number] Issuing Agency: [employer] Device Id: [id number] Expiration Date: 2032-09-21 Lot Number: [id number] hip femur prosthesis, modularPark[facility] Health 2024UDI: ()[id number] Issuing Agency: [employer] Device Id: [id number] Expiration Date: 2025-03-15 Lot Number: [id number] Relevant Diagnostic Tests and/or Laboratory Data Laboratory Results Test Collection Date/Time Result Date/Time Result Interpretation Reference Range Result Comment Performing Site Bedside Hemoglobin A1c July 08, 2025 8:42am Sep tember 2024 8:44am 6.1 % Basophils # (Auto)July 22, 2025 11:43amOctober 2024 11:43am0.0 10 3/uL 0.0-0.1Urine Random CreatinineOctober 2024 9:03amOct2024 9:03am 20.62 mg/dL20.00-300.00Urine Other CastsOctober 2024 9:03amSEEN #/LPF Abnormal (applies to non-numeric results)NONE SEENParathyroid Hormone (Intact) August 13, 2025 9:18amAugust 13, 2025 9:18am83 pg/mLAbnormal (applies to non-numeric results)15-65Performed at: [facility] [id number] Director: Nathan Munoz PhD, Phone: [phone] SaturationOct2024 9:18amOct2024 9:18am33.1 %25-Hydroxy Vitamin D TotalOct2024 9:18amAugust 13, 2025 9:18am73.2 ng/mL<20 ng/mL Vit D -<30 ng/mL Vit D wdelkymfwnxb72-625 ng/mL Vit D sufficient>100 ng/mL Potential ToxicityFerritinOct2024 9:18amOct2024 9:54wz399.0 ng/mL26.0-388.0Magnesium LevelOctober 2024 9:18am August 13, 2025 9:18am2.4 mg/dL1.8-2.4Uric AcidOct2024 9:18am August 13, 2025 9:18am7.9 mg/dLAbove high normal3.5-7.2Anion GapOctober 2024 9:18amAugust 13, 2025 9:18am13.0HematocritOctober 2024 9:18am August 13, 2025 9:18am38.8 %Below low limcgp56.0-54.0Basophils # (Auto) September 16, 2025 11:30amDecember 2024 11:30am0.0 10 3/uL0.0-0.1Anion Gap September 16, 2025 11:30amDecember 2024 11:30am10.8Basophils (%) (Auto) July 22, 2025 11:43amOctober 2024 11:43am0.5 %0.2-2.0Urine Protein/Creatinine RatioOct2024 9:03amOctober 2024 9:03am1.48 Urine Other CrystalsAugust 13, 2025 9:03amNone Seen #/HPFNone SeenIron Level August 13, 2025 9:18amOctober 2024 9:18am83.0 ug/dL65.0-175.0Albumin August 13, 2025 9:18amOctober 2024 9:18am3.8 g/dL3.4-5.0Hemoglobin August 13, 2025 9:18amOctober 2024 9:18am12.8 g/dLBelow low normal 14.0-18.0Basophils (%) (Auto)September 16, 2025 11:30amDecember 2024 11:30am0.4 %0.2-2.0BUN/Creatinine RatioDece2024 11:30amDecember 2024 11:30am25.6Eosinophils # (Auto)July 22, 2025 11:43amOctober 2024 11:43am0.3 10 3/uL0.0-0.7Urine Random Total ProteinAugust 13, 2025 9:03am August 13, 2025 9:03am30.5 mg/dLAbove high normal<=11.9Urine BacteriaOct2024 9:03amTRACE #/HPFAbnormal (applies to non-numeric results)NONE SEEN Total Iron Binding CapacityOct2024 9:18amOct2024 9:18am 251.0 ug/dL250.0-450.0BUN/Creatinine RatioOct2024 9:18amOct2024 9:18am19.7Mean Corpuscular HemoglobinOct2024 9:18amOct2024 9:18am32.0 pg25.9-34.0Eosinophils # (Auto)September 16, 2025 11:30am September 16, 2025 11:30am0.3 10 3/uL0.0-0.7Blood Urea NitrogenDecember 2024 11:30amDecember 2024 11:30am57.0 mg/dLAbove high normal7.0-18.0 Eosinophils (%) (Auto)July 22, 2025 11:43amOctober 2024 11:43am3.8 % 0.9-7.0Urine BilirubinOctober 2024 9:03amNEGATIVENEGATIVEBlood Urea NitrogenOctober 2024 9:18amOctober 2024 9:18am50.0 mg/dLAbove high normal7.0-18.0Mean Corpuscular Hemoglobin ConcentOctober 2024 9:18am August 13, 2025 9:18am33.0 g/dL29.9-35.2Eosinophils (%) (Auto)September 16, 2025 11:30amDecember 2024 11:30am3.4 %0.9-7.0Calcium LevelDecember 2024 11:30amDecember 2024 11:30am8.9 mg/dL8.5-10.1HematocritOctober 2024 11:43amOctober 2024 11:43am34.3 %Below low mngyvh64.0-54.0Urine Occult BloodOctober 2024 9:03amNEGATIVENEGATIVECalcium LevelOctober 2024 9:18amOctober 2024 9:18am9.1 mg/dL8.5-10.1Mean Corpuscular VolumeOctober 2024 9:18amOctober 2024 9:18am97.0 fLAbove high ytzkau84.0-94.0 HematocritDecember 2024 11:30amDecember 2024 11:30am39.4 %Below low bvanva85.0-54.0Chloride LevelDecember 2024 11:30amDecember 2024 11:59nn861 mmol/R54-508PmtyiqkhfiHkmfvqb 2024 11:43amOctober 2024 11:43am11.3 g/dLBelow low dctikq93.0-18.0Urine AppearanceOctober 2024 9:03amCLEARCLEARChloride LevelOctober 2024 9:18amOctober 2024 9:18am 101 mmol/C50-244Rjev Platelet VolumeOctober 2024 9:18amOctober 2024 9:18am9.3 fLBelow low normal9.5-13.5HemoglobinDecember 2024 11:30amDecember 2024 11:30am12.8 g/dLBelow low dxmxid43.0-18.0Carbon Dioxide LevelDecember 2024 11:30amDecember 2024 11:30am32.1 mmol/LAbove high odiore53.0-32.0 Immature Granulocyte # (Auto)July 22, 2025 11:43amOctober 2024 11:43am 0.03 10 3/uL0.00-0.03Urine ColorOctober 2024 9:03amLT. YELLOWYELLOWCarbon Dioxide LevelOctober 2024 9:18amOctober 2024 9:18am32.8 mmol/LAbove high sqtvpo55.0-32.0Platelet CountOctober 2024 9:18amOctober 2024 9:81tz061 10 3/nM757-809Vdcxblyk Granulocyte # (Auto)September 16, 2025 11:30am September 16, 2025 11:30am0.05 10 3/uLAbove high normal0.00-0.03Creatinine September 16, 2025 11:30amDecember 2024 11:30am2.23 mg/dLAbove high normal 0.70-1.30Immature Granulocyte % (Auto)July 22, 2025 11:43amOctober 2024 11:43am0.5 %0.0-0.5Urine Glucose (UA)August 13, 2025 9:03amNEGATIVE mg/dL NEGATIVECreatinineOctober 2024 9:18amOctober 2024 9:18am2.54 mg/dL Above high normal0.70-1.30Red Blood CountOctober 2024 9:18amOctober 2024 9:18am4.00 10 6/uLBelow low normal4.70-6.10Immature Granulocyte % (Auto) September 16, 2025 11:30amDecember 2024 11:30am0.6 %Above high normal 0.0-0.5Estimated GFR ()September 16, 2025 11:30amDecember 2024 11:26pg61Tiicb low normal>=60 mL/min/1.73m 2Lymphocytes # (Auto)July 22, 2025 11:43amOctober 2024 11:43am1.6 10 3/uL1.2-3.8Urine Hyaline Casts August 13, 2025 9:03amRAREEstimated GFR ()August 13, 2025 9:18amOctober 2024 9:78ka58Yhvhs low normal>=60 mL/min/1.73m 2Red Cell Distribution WidthOctober 2024 9:18amOctober 2024 9:18am13.4 % 11.0-15.0Lymphocytes # (Auto)September 16, 2025 11:30amDecember 2024 11:30am1.9 10 3/uL1.2-3.8Estimated GFR (Non- AmericanDece2024 11:30amDecember 2024 11:99nw58Ajjkb low normal>=60 mL/min/1.73m 2 Lymphocytes (%) (Auto)July 22, 2025 11:43amOctober 2024 11:43am24.6 % 20.5-60.0Urine KetonesOctober 2024 9:03amNEGATIVE mg/dLNEGATIVEEstimated GFR (Non- AmericanOctober 2024 9:18amOctober 2024 9:18am24 Below low normal>=60 mL/min/1.73m 2Corrected White Blood CountOctober 2024 9:18amOctober 2024 9:18am6.8 10 3/uL4.0-11.0Lymphocytes (%) (Auto)September 16, 2025 11:30amDecember 2024 11:30am23.9 %20.5-60.0Glucose LevelDecemb2024 11:30amDecember 2024 11:74ib500 mg/jM59-900Gqoi Corpuscular HemoglobinOctober 2024 11:43amOctober 2024 11:43am32.4 pg25.9-34.0 Urine Leukocyte EsteraseOctober 2024 9:03amTRACEAbnormal (applies to non- numeric results)NEGATIVEGlucose LevelOctober 2024 9:18amOctober 2024 9:18am85 mg/zR66-792Jlxe Corpuscular HemoglobinDecemb2024 11:30am September 16, 2025 11:30am31.1 pg25.9-34.0Potassium LevelDecemb2024 11:30amDecemb2024 11:30am3.9 mmol/L3.5-5.1Mean Corpuscular Hemoglobin ConcentOctober 2024 11:43amOctober 2024 11:43am32.9 g/dL29.9-35.2Urine MucusOctober 2024 9:03amNONE SEENNONE SEENPotassium LevelOctober 2024 9:18amOctober 2024 9:18am3.8 mmol/L3.5-5.1Mean Corpuscular Hemoglobin ConcentDecemb2024 11:30amDecemb2024 11:30am32.5 g/dL29.9-35.2 Sodium LevelDecemb2024 11:30amDecemb2024 11:44nx159 mmol/L 136-145Mean Corpuscular VolumeOctober 2024 11:43amOctober 2024 11:43am 98.3 fLAbove high jaeino85.0-94.0Urine NitriteOctober 2024 9:03amNEGATIVE NEGATIVESodium LevelOctober 2024 9:18amOctober 2024 9:57wo946 mmol/L 136-145Mean Corpuscular VolumeDecember 2024 11:30amDecember 2024 11:30am95.6 fLAbove high .0-94.0Monocytes # (Auto)July 22, 2025 11:43amOctober 2024 11:43am0.6 10 3/uL0.3-0.8Urine pHOctober 2024 9:03am6.05.0-9.0Phosphorus LevelOctober 2024 9:18amOctober 2024 9:18am3.9 mg/dL2.6-4.7Monocytes # (Auto)September 16, 2025 11:30amDecember 2024 11:30am0.8 10 3/uL0.3-0.8Monocytes (%) (Auto)July 22, 2025 11:43am July 22, 2025 11:43am8.3 %1.7-12.0Urine ProteinOctober 2024 9:03am TRACE mg/dLNEG/TRACEMonocytes (%) (Auto)September 16, 2025 11:30amDecember 2024 11:30am9.4 %1.7-12.0Mean Platelet VolumeOctober 2024 11:43amOctober 2024 11:43am8.9 fLBelow low normal9.5-13.5Urine RBCOctober 2024 9:03amNONE SEEN #/HPF0-2Mean Platelet VolumeDecember 2024 11:30amDecember 2024 11:30am8.9 fLBelow low normal9.5-13.5Neutrophils # (Auto)July 22, 2025 11:43amOctober 2024 11:43am4.2 10 3/uL1.4-6.5Urine Specific [place] August 13, 2025 9:03am<=1.005Abnormal (applies to non-numeric results) 1.005-1.025Neutrophils # (Auto)September 16, 2025 11:30amDecember 2024 11:30am4.9 10 3/uL1.4-6.5Neutrophils (%) (Auto)July 22, 2025 11:43amOctober 2024 11:43am62.3 %43.0-75.0Urine Squamous Epithelial CellsOctober 2024 9:03amRARE #/LPFNONE/RARENeutrophils (%) (Auto)September 16, 2025 11:30am September 16, 2025 11:30am62.3 %43.0-75.0Platelet CountOctober 2024 11:43am July 22, 2025 11:79qs852 10 3/gX374-645Bbfgv UrobilinogenOctober 2024 9:03am0.2 EU/dL0.2-1.0Platelet CountDecember 2024 11:30amDecember 2024 11:56ia384 10 3/oP561-156Ajg Blood CountOctober 2024 11:43amOctober 2024 11:43am3.49 10 6/uLBelow low normal4.70-6.10Urine WBCOctober 2024 9:20nr7-1 #/HPFAbnormal (applies to non-numeric results)NONE SEENRed Blood Count September 16, 2025 11:30amDecember 2024 11:30am4.12 10 6/uLBelow low normal 4.70-6.10Red Cell Distribution WidthOctober 2024 11:43amOctober 2024 11:43am13.4 %11.0-15.0Red Cell Distribution WidthDecember 2024 11:30am September 16, 2025 11:30am13.2 %11.0-15.0Corrected White Blood CountOctober 2024 11:43amOctober 2024 11:43am6.7 10 3/uL4.0-11.0Corrected White Blood CountDece2024 11:30amDecember 2024 11:30am7.9 10 3/uL4.0-11.0 Vital Signs Vital Reading Result Reference Range Collection Date/Time Height 71 [in_i] July 07, 2025 9:83anGedyvl51.99 kgSept2024 9:25amHeart Rate71 /jmm00-962Shohozfli 22nd, 2025 9:25amOxygen saturation by Pulse ojpntrih32 % 95-100Sept2024 9:25amBP Ptsbsfoj361 mm[Hg]100-140Sept2024 9:25amBP Ftpepwjcl53 mm[Hg]60-100Sept2024 9:25amBMI (Body Mass Index)27.0 kg/g4Jgrmkwldw 2024 9:40zeEuhgvh88 [in_i]July 08, 2025 8:94kbOujrng74.83 kgSept2024 8:32amHeart Rate79 /bpz23-027Pfvqsrwqx 23rd, 2025 8:32amRespiratory rate12 /ztw52-29Yrtmhtaot 23rd, 2025 8:32amBP Fjmvhxiq451 mm[Hg]100-140pt2024 8:32amBP Eakrakibk55 mm[Hg]60-100 July 08, 2025 8:32amBMI (Body Mass Index)27.9 kg/q4Ghrtaiwca 2024 8:46rgQahbuz93 [in_i]July 22, 2025 3:27upXldbxn88.61 kgOctober 2024 3:17pmHeart Rate83 /lex57-075Misibpo 2024 3:17pmRespiratory rate12 /min 12-24October 2024 3:17pmBP Dvlptffl373 mm[Hg]100-140October 2024 3:17pmBP Prcqrizuy36 mm[Hg]60-100October 2024 3:17pmBMI (Body Mass Index) 28.8 kg/i9Nqosvmd 2024 3:00mgGgtlaj77 [in_i]August 21, 2025 2:07pmWeight 91.62 kgNov2024 2:07pmHeart Rate80 /jvd57-748XrwtnnfgAugust 21, 2025 2:07pmRespiratory rate16 /mih45-55LtopcuklAugust 21, 2025 2:07pmOxygen saturation by Pulse yqfxbdad02 %95-100August 21, 2025 2:07pmBP Lpxyrbem564 mm[Hg]100-140 August 21, 2025 2:07pmBP Oqjhkmkch00 mm[Hg]60-100Nov2024 2:07pmBMI (Body Mass Index)28.1 kg/y5Xagmqluf2024 2:54fkWftvhn21 [in_i]October 01, 2025 11:19pmNwefrk21.94 kgDecemb2024 11:08amHeart Rate61 /min 60-100cemb2024 11:08amRespiratory rate12 /jqs39-11Zdybhpmr 17th, 2025 11:08amBP Cdrzfevj449 mm[Hg]100-140Dece2024 11:08amBP Aumjvurhm09 mm[Hg]60-100Deceer 2024 11:08amBMI (Body Mass Index)27.9 kg/k4Wbruvwbt2024 11:08am Advance Directives Advance Directive Response Recorded Date/ Time Advance Directives No September 22, 2017 9:28am Insurance Providers Guarantor Jefry Veliz Address [address] [place] [address] [address] [facility] [id number] Info.Home Phone: Coverage Status Update:2025 Payer Group Member ID Coverage Type Subscriber Relationship to Subscriber Effective Date Expiration Date Medicare [id number] Snyder , D Id: [id number] [address] [facility] [address] Home Phone: Email: [email or web address]-IP Part A [id number] Snyder , D Id: [id number] [address] [place] [id number] Home Phone: Email: [email or web address] Encounters Encounter Location(s) Arrival/Admit Date Discharge/Departure Date Discharge/Departure Disposition Provider(s) Departed Physician/ Provider Office Visit -[facility] Neurology [place] July 07, 2025 10:20am July 07, 2025 10:48am Discharged to home care or self care (routine discharge) Sidra Deleon DO Departed Physician/ Provider Office Visit -[facility] July 08, 2025 9:17am July 08, 2025 10:07am Discharged to home care or self care (routine discharge) Arnie Lund DO Non-patient / Non-visit -[facility] Octob er 2024 9:45am Erica Dalton CMADeparted Physician/Provider [facility] 11:59pmDischarged to home care or self care (routine discharge)Tahira Lauren-patient / [facility]xl[facility]oblv[facility] 20[facility] 10:18amACHRISS Alaseparted Physician/Provider Office Visit-[facility] Nephrology [facility] 2024 2:06pm August 21, 2025 2:38pmDischarged to home care or self care (routine discharge)Kinga Rosado-patient / Hig-zzyor-[facility] September 16, 2025 11:30CHRISS Lozaeparted Physician/Provider Office Visit[facility] 12:19pmDischarged to home care or self care (routine discharge)Arnie Lund DO Recent Diagnosis Onset Date Admit Date Hyposomnia Unknown July 07, 2025 10:20am Hypoxia Unknown July 07, 2025 10:20am Obstructive sleep apnea Unknown Septembe r 2024 10:20am Primary insomnia Unknown July 07, 2025 10:20am Snoring Unknown Judy 22nd, 2025 10:20am Atrial fibrillation Unknown July 082024 9:17am Chronic bronchitis, simple Unknown Septe mber 2024 9:17am Chronic HFrEF (heart failure with reduced ejection fraction) Unknown July 08, 2025 9:17am Chronic kidney disease Unknown July 08, 2025 9:17am Colon cancer Unknown July 08, 2025 9:17am Hypercholesteremia Unknown June 9:17am Hypothyroidism due to medication Unknown July 08, 2025 9:17am Nonischemic dilated cardiomyopathy Unknown July 08, 2025 9:17am Obstructive sleep apnea Unknown Junemb r 2024 9:17am Type 2 diabetes mellitus with hyperglycemia Unkn own July 08, 2025 9:17am Atrial fibrillation Unknown July 22, 2025 3:46pm Bruising at injection site Unknown 2024 3:46pm Chronic HFrEF (heart failure with reduced ejection fraction) Unknown July 22, 2025 3:46pm Nonischemic dilated cardiomyopathy Unknown July 22, 2025 3:46pm Anemia of renal disease Unknown August 21, 2025 2:06pm Chronic HFrEF (heart failure with reduced ejection fraction) Unknown August 21, 2025 2:06pm Hypercholesteremia Unknown August 21, 2025 2:06pm Secondary hyperparathyroidism Unknown No vember 2024 2:06pm Type 2 diabetes mellitus wit h diabetic chronic kidney disease Unknown August 21, 2025 2:06pm Hypertensive chronic kidney disease with stage 1 through stage 4 chronic ki Unknown August 21, 2025 2:06pm Stage 4 chronic kidney disease Unknown N ovember 2024 2:06pm Atrial fibrillation Unknown September 10:39am Chronic bronchitis, simple Unknown Decem 2024 10:39am Chronic HFrEF (heart failure with reduced ejection fraction) Unknown October 01, 2025 10:39am Chronic kidney disease Unknown October 01, 2025 10:39am Colon cancer Unknown October 01, 2 025 10:39am Hypercholesteremia Unknown September 10:39am Hypothyroidism due to medication Unknown October 01, 2025 10:39am Nonischemic dilated cardiomyopathy Unknown October 01, 2025 10:39am Obstructive sleep apnea Unknown October 01, 2025 10:39am Type 2 diabetes mellitus with hyperglycemia Unkn own October 01, 2025 10:39am Assessments Diagnosis Onset Date Resolution Status Admit Date Hyposomnia acuteSeptember 2024 10:20amHypoxiaacuteSeptember 2024 10:20am Obstructive sleep apneaacuteSeptember 2024 10:20amPrimary insomniaacute July 07, 2025 10:20amSnoringacuteSeptember 2024 10:20amAtrial fibrillationacuteSeptember 2024 9:17amChronic bronchitis, simpleacute July 08, 2025 9:17amChronic HFrEF (heart failure with reduced ejection fraction)acuteSeptember 2024 9:17amChronic kidney diseaseacuteSeptember 2024 9:17amColon canceracuteSeptember 2024 9:17amHypercholesteremia acuteSeptember 2024 9:17amHypothyroidism due to medicationacuteSeptember 2024 9:17amNonischemic dilated cardiomyopathyacuteSeptember 2024 9:17amObstructive sleep apneaacuteSeptember 2024 9:17amType 2 diabetes mellitus with hyperglycemiaacuteSeptember 2024 9:17amAtrial fibrillation acuteOctober 2024 3:46pmBruising at injection siteacuteOctober 2024 3:46pmChronic HFrEF (heart failure with reduced ejection fraction)acuteOctober 2024 3:46pmNonischemic dilated cardiomyopathyacuteOctober 2024 3:46pm Anemia of renal diseaseacuteNovember 2024 2:06pmChronic HFrEF (heart failure with reduced ejection fraction)acuteNovember 2024 2:06pm HypercholesteremiaacuteNovember 2024 2:06pmSecondary hyperparathyroidism acuteNovember 2024 2:06pmType 2 diabetes mellitus with diabetic chronic kidney diseaseacuteNovember 2024 2:06pmHypertensive chronic kidney disease with stage 1 through stage 4 chronic kideletedNovember 2024 2:06pmStage 4 chronic kidney diseasedeletedNovember 2024 2:06pmAtrial fibrillationacute October 01, 2025 10:39amChronic bronchitis, simpleacuteDecember 2024 10:39amChronic HFrEF (heart failure with reduced ejection fraction)acuteDeceer 2024 10:39amChronic kidney diseaseacuteDeceer 2024 10:39amColon canceracuteDeceer 2024 10:39amHypercholesteremiaacuteDeceer 2024 10:39amHypothyroidism due to medicationacuteDeceer 2024 10:39am Nonischemic dilated cardiomyopathyacuteDeceer 2024 10:39amObstructive sleep apneaacuteDeceer 2024 10:39amType 2 diabetes mellitus with hyperglycemiaacutece2024 10:39am Plan of Treatment Author [facility] 9:21dy59-qxol-asc male with a severe obstructive sleep apnea with hypoxia leading to daytime hypersomnolence and snoring. This is typically controlled with the use of his CPAP machine however he has not been wearing it as much. He is not always getting it back on after he has gone to the bathroom. He typically has to use the restroom a couple times in the night due to the water pill he is on. He is using the machine 100% of the time but only 40% of the time greater than 4 hours with an average nightly usage of 4 hours and 24 minutes and a residual AHI of 1.9. He was previously using it 93% of the time greater than 4 hours with an average nightly usage of 6 hours and 23 minutes and needs to get back to using it that frequently. He does have a history of arrhythmia and has a defibrillator/pacemaker. He is having some sleep maintenance insomnia. He was offered some medication but he wants to try ayhs-hmx-iamjhwr so he will try melatonin or L- theanine first and see how that works for him. If not we could consider some doxepin. He is set at auto BiPAP 12/20 cmH2O with a pressure support of 4 He has a hypoxia that is controlled with the use of the machine. Plan Try to get the machine on him more and wear it all night long He can try some melatonin or L-theanine to help him sleep. If that does not work he can call and we will try some doxepin The patient was counseled on proper sleep hygiene and adequate hours of sleep. The patient was counseled on the risks of stroke, OH, and sudden with MOLINA, along with the need for compliance with the CPAP/BiPAP treatment. The diagnosis was all discussed with the patient.?? All questions were answered and they agreed with the treatment plan.?? Patient will call if there are any new issues or questions. Author Arnie Lund [facility]AuthoredSeptember 2024 9:07amHealthy diet and exercise. Continue daily weights. 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 I have instructed them to notify the office for any on any unexpected weight gain > 3lbs and /or increased dyspneaon exertion, difficulty breathing during sleep, worsening lower extremity swelling, chest pain or lightheadedness. I have reviewed the GDMT with beta blockers, TOMMY/ARB or ARNI, MRA and a SGLT-2i. Echo: LVEF 20-25%, TRISH, normal RV size/function, RVSP 03/2025 Continue Isosorbide, Hydralazine and Metoprolol without interruption f/u Cardiology I instructed this patient on the benefits of adequate control of hypertension and diabetes, if appropriate. I have also instructed them to avoid use of NSAIDs due to the adverse effects on renal function. I instructed them on adequate fluid balance and to consume at least 48 oz of fluids daily. I also instructed them to monitor for an unexplained increase in weight and lower extremity edema. They have been instructed to notify the office for any changes or concerns. WICHO superimposed on CKD during his recent hospital stay - acute blood loss anemia, over diuresis contributed Improved w/ GFR and is back to baseline f/u Nephrology Slowly titrating Levothyroxine. Increase Levothyroxine to 50mcg daily - take at HS w/o any additional medications Monitor TSH, T4, T3 No ER/hosp visits for AECOPD since previous OV. Continue triple therapy. Continue MAHAMED as needed - occasional use but not daily I have instructed this patient on a low fat, high fiber diet and exercise. I have discussed the primary and secondary prevention benefits attributed to lowering LDL cholesterol. I have also discussed the medical treatment of elevated cholesterol, which is based on the 10 year ASCVD risk. Continue zetia without interruption No s/s recurrence. Denies change in appetite, weight or bowel habits. Denies abdominal pain, melena or hematochezia. Hemicolectomy 08/2021, Surveillance colonoscopy 07/2022, 2023 (repeat 2 years) This patient is aware of the benefits associated with treatment of MOLINA. With continued use, the patient is reducing the risk for OH, CVA, HTN, cardiac dysrhythmias and sudden cardiac deaths. With continued use, the patient is also reducing morning headaches, daytime somnolence, fatigue and obesity. This patient is compliant with treatment, wearing the equipment every night for greater than 4 hours. This patient has been instructed to continue use of PAP for treatment of MOLINA. I have instructed this patient to follow a comprehensive diabetic treatment plan. I have also instructed them to check their feet daily for calluses and nonhealing ulcers. I have instructed them to have a yearly dilated eye examination. I have reviewed their treatment goals: SBP less than 130, LDL less than 100, FBS less than 140, A1C less than 7%. I have instructed them to maintain a home BS log and bring the results to each of their office visits for review. I have explained the importance of routine monitoring of their A1C, Microalbumin and Lipids. I have explained the benefits of well controlled diabetes in preventing micro and macrovascular complications. POC A1C 6.1% This patient is rhythm controlled. I instructed them to continue anticoagulation to prevent thromboembolic events. I instructed them to monitor their BP, HR and daily weights. I also instructed them to monitor for bleeding complications, including epistaxis, hematuria, melena and hematochezia. BiV ICD 05/2023, DCCV - 10/2024, Planning ablation in near future. Amiodarone stopped due to thyroid issues Author Arnie Lund [facility] 20[facility] 3:22pmHealthy diet and exercise. Continue daily weights. 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 I instructed them to continue anticoagulation to prevent thromboembolic events. I instructed them to monitor their BP, HR and daily weights. I also instructed them to monitor for bleeding complications, including epistaxis, hematuria, melena and hematochezia. BiV ICD 05/2023, DCCV - 10/2024, Planning LAAO procedure and ablation in near future. Amiodarone stopped due to thyroid issues I have instructed this patient on a low salt diet, exercise and daily weights. I have instructed them to notify the office for any on any unexpected weight gain > 3lbs and /or increased dyspneaon exertion, difficulty breathing during sleep, worsening lower extremity swelling, chest pain or lightheadedness. I have reviewed the GDMT with beta blockers, TOMMY/ARB or ARNI, MRA and a SGLT-2i. Echo: LVEF 20-25%, TRISH, normal RV size/function, RVSP - 03/2025 Continue Isosorbide, Hydralazine and Metoprolol without interruption f/u Cardiology I instructed this patient on the benefits of adequate control of hypertension and diabetes, if appropriate. I have also instructed them to avoid use of NSAIDs due to the adverse effects on renal function. I instructed them on adequate fluid balance and to consume at least 48 oz of fluids daily. I also instructed them to monitor for an unexplained increase in weight and lower extremity edema. They have been instructed to notify the office for any changes or concerns. WICHO superimposed on CKD during his recent hospital stay - acute blood loss anemia, over diuresis contributed Improved w/ GFR and is back to baseline f/u Nephrology I have instructed this patient to follow a comprehensive diabetic treatment plan. I have also instructed them to check their feet daily for calluses and nonhealing ulcers. I have instructed them to have a yearly dilated eye examination. I have reviewed their treatment goals: SBP less than 130, LDL less than 100, FBS less than 140, A1C less than 7%. I have instructed them to maintain a home BS log and bring the results to each of their office visits for review. I have explained the importance of routine monitoring of their A1C, Microalbumin and Lipids. I have explained the benefits of well controlled diabetes in preventing micro and macrovascular complications. A1C: 6.0% February 2025 POC A1C 6.1% Jun 2025 Slowly titrating Levothyroxine. Increase Levothyroxine to 50mcg daily - take at HS w/o any additional medications Monitor TSH, T4, T3 This patient is aware of the benefits associated with treatment of MOLINA. With continued use, the patient is reducing the risk for OH, CVA, HTN, cardiac dysrhythmias and sudden cardiac deaths. With continued use, the patient is also reducing morning headaches, daytime somnolence, fatigue and obesity. This patient is compliant with treatment, wearing the equipment every night for greater than 4 hours. This patient has been instructed to continue use of PAP for treatment of MOLINA. No ER/hosp visits for AECOPD since previous OV. Continue triple therapy. Continue MAHAMED as needed - occasional use but not daily I have instructed this patient on a low fat, high fiber diet and exercise. I have discussed the primary and secondary prevention benefits attributed to lowering LDL cholesterol. I have also discussed the medical treatment of elevated cholesterol, which is based on the 10 year ASCVD risk. Continue zetia without interruption No s/s recurrence. Denies change in appetite, weight or bowel habits. Denies abdominal pain, melena or hematochezia. Hemicolectomy 08/2021, Surveillance colonoscopy 07/2022, 2023 (repeat 2 years) Author Arnie Lund [facility]AuthoredOctober 2024 9:07pmHealthy diet and exercise. Continue daily weights. 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 I instructed them to continue anticoagulation to prevent thromboembolic events. I instructed them to monitor their BP, HR and daily weights. I also instructed them to monitor for bleeding complications, including epistaxis, hematuria, melena and hematochezia. BiV ICD 05/2023, DCCV - 10/2024, Planning ablation in near future. Amiodarone stopped due to thyroid issues I have instructed this patient on a low salt diet, exercise and daily weights. I have instructed them to notify the office for any on any unexpected weight gain > 3lbs and /or increased dyspneaon exertion, difficulty breathing during sleep, worsening lower extremity swelling, chest pain or lightheadedness. I have reviewed the GDMT with beta blockers, TOMMY/ARB or ARNI, MRA and a SGLT-2i. Echo: LVEF 20-25%, TRISH, normal RV size/function, RVSP - 03/2025 Continue Isosorbide, Hydralazine and Metoprolol without interruption f/u Cardiology Extensive bruising occurred following his Flu shot. The arm is 3/4 inch larger than the opposite extremity. The arm is nontender, warm to touch w/ intact pulse and neuromuscular function. Instructed to hold Xarelto for second day. Will discuss management w/ Cardiology Author Zahida Flowers [facility] HospitalAuthoredNovember 2024 12:31pmHe has a CKD due to the longstanding DM and HTN with baseline creatinine 2.3-2.5 mg/dL. His CT scan abdomen pelvis in February 2024 showed few tiny hyperdense presumably hemorrhagic cyst in the kidneys which are unchanged. Discussed with him importance of good HTN and DM control to slow down the progression of the CKD. His serum hemoglobin is within the target goal and he has adequate iron stores. No need for MILEY. His MBD parameters including serum calcium, phosphorus, PTH and vitamin D are within the goal. No need for calcitriol. His blood is controlled and he appears to be euvolemic. Will continue current dose of the Lasix. Advised him to monitor weight and blood pressure at home and call office if he gains 2 pounds in 24 hours or 5 pounds in 1 week. I explained to them he can be resumed at the low- dose of the hydralazine as ordered from renal standpoint. They will discuss with his ratoprinter. Blood sugars are within acceptable range. He is currently on diet control. Advised him to continue to follow with PCP for DM management. He was taken off of the TOMMY and ARB due to the advanced CKD. He appears to be well compensated. Will continue current dose of the Lasix. Advised continue to follow with cardiology. Advised him if he gains 2 pounds 24-hour 5 pounds in 1 week then call office. Will continue Zetia. Advised him continue follow-up with PCP for monitoring of 50s and lipid follow-up Future Tests Future scheduled test information is unavailable Pending Tests Test Name Ordered Date Scheduled Date Immunofixation, (LEXI), Urine August 21, 2025 2:32pm 3 Months Renal Function Panel August 21, 2025 2:32pm 3 Months Future Visits Future appointment information is unavailable Future Procedures Procedure Name Ordered Date Scheduled Date Dipstick and Microscopic August 21, 2025 2:32 pm 3 Months Hemogram CBC Without Diff August 21, 2025 2:3 2pm 3 Months Iron and TIBC Profile August 21, 2025 2:32pm 3 Months Ferritin August 21, 2025 2:32pm 3 Roland hs Immunofixation,Serum August 21, 2025 2:32pm 3 Months Free K+L LT Chains, Qn, S August 21, 2025 2:3 2pm 3 Months Magnesium August 21, 2025 2:32pm 3 Roland hs Protein Creat Ratio Ur Random August 21, 2025 2:32pm 3 Months Parathyroid Hormone Intact August 21, 2025 2: 32pm 3 Months Prot Electrophoresis w/Interp August 21, 2025 2:32pm 3 Months Protein Electrophoresis, Serum August 21 2:32pm 3 Months Uric Acid August 21, 2025 2:32pm 3 Roland hs Vitamin D 25 Hydroxy Total August 21, 2025 2: 32pm 3 Months Future Medications Future medication information is unavailable Patient Instructions Patient instructions are unavailable
--- OUTSIDE RECORDS SUMMARY | 2025-10-01 12:41 | XMS_ITS | Clinical Summary ---
Author Organization [facility] Address [address] [place] [address] Care Team Providers Care Transportation Maintenance Supervisor Name Role Phone Arnie Lund DO Primary Care Provider [phone] Allergies Active AllergyReactionsCriticalityNoted JsdtAsnsztdtGtrofxg-Gcm-Xvc Reductase Nzcehfoyta11/25/6812Urxwhntm74/25/2022 Medications MedicationSigDispense QuantityRefillsLast FilledStart DateEnd DateStatus allopurinol (Zyloprim) 100 mg tablet Take 1 tablet by mouth in the morning.Active cholecalciferol, vitamin D3, 100 mcg (4,000 unit) capsule Take 1 capsule every day by oral route.Active niacin 500 mg tablet Take 500 mg by mouth at bedtime.Active potassium chloride CR (Klor-Con) 10 mEq ER [...] Take 65 mg of iron by mouth at bedtime. Do not crush, chew, or split.Active rivaroxaban [...] BY MOUTH AT BEDTIME 90 tablet 5Active Additional Information Patient taking differently:10 mg oralDaily, Reported on 09/16/2025 metoprolol succinate XL (Toprol-XL) 100 mg 24 hr tablet Indications:Persistent atrial fibrillation (CMS/HCC)TAKE 1 TABLET BY MOUTH ONCE DAILY DIRECTED. DO NOT CRUSH OR CHEW 90 tablet 5Active hydrALAZINE (Apresoline) 25 mg tablet Indications:Chronic systolic heart failure (CMS/HCC),Primary hypertensionTake 1 tablet (25 mg) by mouth three times daily. 270 tablet /6Active Additional Information Patient taking differently: 50 mgoral 3 times daily, Reported on 09/16/2025 acetaminophen (Tylenol) 500 mg tablet Take by mouth every 6 (six) hours if needed for mild pain (1-3 pain score). Active Active Problems ProblemNoted DateDiagnosed DateAcute blood loss nbqqxt775Acute kidney injury superimposed on CKD09/16/2025ute on chronic dsicuo5609/16/2025nemia of renal oufeqrm4409/16/2025spiration sjkujpits97/02/2025ruising at injection site 09/16/2025oronary artery rwwblzk1809/16/2025Femoral neck fkseiebr02/02/2025 History of pikvpbklnapvbz02/02/7365Xbmjfap03/02/2025Positive fecal occult blood test09/16/2025Screening PSA (prostate specific antigen)09/16/2025 Overview (09/16/2025): PSA: 0.91 - 07/2024, 0.98 - 02/2025 Secondary duxdurcnzbbwjsncwop93/02/4222Arkxxwo10/02/2025Status post hemiarthroplasty of right hip09/16/20250922Mtcbmsdgbfb29/23/2024rimary insomnia 07/08/2024hronic bronchitis, oibrvx9003/29/2024hronic venous insufficiency 03/29/20244942Ftnqpnyqqgkz05/14/2024Hyperlipidemia type II03/29/2024Hypothyroidism due to mtaansusqt35/14/2024Impaired mobility and activities of daily living 03/29/2024Iron deficiency phjvmc5503/29/2024olon ndruui4003/29/2024Mucopurulent chronic deufltiqdr93/14/2024Obstructive sleep apnea03/29/20240497Jygtcraly47/14/2024 A-fib03/29/2024soas abscess, right03/29/2024ulmonary fffiofrhqxqi16/14/2024 Hljzdtitoguudy45/14/2024Type 2 diabetes mellitus with lszjgeyfjzoyv98/14/2024 Stage 4 chronic kidney ucngzwj7809/22/2023Statin szdopziijsz47/14/2023ilated eourenetalftpm39/20/2023 Overview (04/04/2023): Added automatically from request for surgery [id number] Stage 3 chronic kidney ejmtvqn58/25/2022Chronic systolic heart iedywwd0906/09/2022 Assessment & Plan (09/20/2022 5:21 PM EST): -HFrEF -NHYA III -he appears euvolemic on exam despite weight gain, this could be attributed to correcting thyroid issues -He has no LE edema, JVD -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 director of teaching and learning regarding kidney function -he will need 3 month follow up with moukarbel -continue GDMT: norvasc, aspirin, bumex, hydralazine, isosorbide, toprolXL Ybmbogpeoone80/25/2022Edema of lower jjyygbtgn29/25/2022 Assessment & Plan (09/20/2022 5:23 PM EST): -this must be improved as he does not exhibit any LE edema Hypertensive enziymwj18/25/2022 Assessment & Plan (09/20/2022 5:22 PM EST): -he is controlled today -will continue to re-evaluate on follow up pending nephrology recommendations Left ventricular systolic /25/4305Sbygynysgmt79/25/2022COPD (chronic obstructive pulmonary disease)2Osteomyelitis of vertebra 0775Xwnlzplenh09/01/6971Slehxumrutyynm11/01/2021Type 2 diabetes mellitus 1Paroxysmal atrial wrnooza3208/16/2019 Resolved Problems ProblemNoted DateDiagnosed DateResolved HemlQjztwjyahcro76 Encounters DateTypeDepartmentCare MnynQofnytzjozi41/11/2025 10:00 AM ESTAncillary Procedure [facility] [address] [place] [phone] Pre-operative cardiovascular examination, ICD in place09/24/2025Orders Only [facility] Pre-Anesthesia Clinic [address] [place] [address] Brooke Grier RN 09/16/2025 11:30 AM ESTOffice Visit [address] [address] Mariusz Montoya MD Paroxysmal atrial fibrillation (CMS/HCC) (Primary Dx)09/16/2025 10:45 AM EST Ancillary Procedure [facility] [address] [place] [address] Encounter for implantable defibrillator reprogramming or check09/16/2025Travel 09/16/2025Refill [address] [address] Kalee Mahmood MA 09/09/2025Orders Only [facility] Heart [facility] [address] [place] [address] ChuCharissa hinkle RN Paroxysmal atrial flutter ([facility]) (Primary Dx)09/09/2025Orders Only [facility] Heart and Vascular [facility] [address] [place] [address] Charissa Ortiz RN A-fib ([facility]) (Primary Dx)08/25/2025 12:00 PM ESTAncillary Procedure [facility] [address] [place] [address] Pre-operative cardiovascular examination, ICD in place08/25/2025Orders Only [facility] [address] [place] [address] Mariusz Montoya MD 08/18/2025 8:00 AM ESTAncillary Procedure [facility] [address] [place] [address] Pre-operative cardiovascular examination, ICD in place08/17/2025Orders Only [facility] [address] [place] [address] Mariusz Montoya MD 07/25/2025 9:30 AM EDTAncillary Procedure [facility] [address] [place] [address] Pre-operative cardiovascular examination, ICD in place07/25/2025Orders Only [facility] [address] [place] [address] Sarwat Lazo MD 07/23/2025Telephone [facility] [address] [place] [facility] [place] [address] Juana Garrett MA 07/21/2025Telephone [facility] [address] [place] [facility] [place] [address] Kalee Mahmood MA from Last 3 Months Immunizations ImmunizationAdministration DatesNext DueInfluenza, Skxybuuesfj91/01/2019 Unspecified Sars-Cov-2 Haokuoidkch60/18/2021,11/12/2020 Family History Medical HistoryRelationNameCommentsGlaucomaBrotherHeart diseaseFatherDiabetes Maternal GrandmotherDiabetesMotherClotting [...] and Gender InformationValueDate Recorded Sex Assigned at DczniYsbm93/28/2023 6:32 AM EDTLegal WduOdfh6504/13/2022 11:44 PM EDTGender MfufvjbwUroy04/28/2023 6:32 AM EDTSexual OrientationHeterosexual or Qwqkpxzu56/28/2023 6:32 AM EDT Last Filed Vital Signs Vital SignReadingTime TakenCommentsBlood Gddvfmwx868/8409/16/2025 10:47 AM EST Zmyrd533509/16/2025 10:47 AM PHGBldtwcjvoki99.1 ??C (97 ??F)07/08/2021 2:48 PM EDT Respiratory Qvaz178910/17/2024 12:27 PM ESTOxygen Mvfsbtycxf71%09/16/2025 10:47 AM ESTInhaled Oxygen Concentration--Zyhrnv41.7 kg (200 lb)05/27/2025 9:25 AM EDT Euqkif420.3 cm (5' 11 )09/16/2025 10:47 AM ESTBody Mass Index27.8905/27/2025 9:25 AM EDT Plan of Treatment Health MaintenanceDue DateLast DoneCommentsMedicare Annual Wellness (AWV) 2Diabetes: Retinopathy Asykotcrl90/18/1952Depression Screening 4Diabetes: Urine Protein Moxljjzuf34/18/1961Zoster Vaccines (1 of 2) 1992Fall Risk Eimipwnyr07/18/2007Diabetes: Hemoglobin A1C07/02/2022 04/01/2022, 08/13/2019Adult Wtgklyo75, 06/27/2012COVID-19 Vaccine ( season), 07/22/2024, 07/20/2023, Additional history existsPneumococcal Vaccine: 50+ MhcjpQjijgjrnx97/11/2016, 08/02/2013, 07/16/2013Influenza DvpcksbShnletchr09/23/2025, 07/15/2024, 07/11/2023, Additional history existsHIB VaccinesAged OutNo longer eligible based on patient's age to complete this topicHPV VaccinesAged OutNo longer eligible based on patient's age to complete this topicIPV VaccinesAged OutNo longer eligible based on patient's age to complete this topicMeningococcal B VaccineAged OutNo longer eligible based on patient's age to complete this topic Meningococcal VaccineAged OutNo longer eligible based on patient's age to complete this topicRotavirus VaccinesAged OutNo longer eligible based on patient's age to complete this topic Medical Devices ImplantedTypeAreaManufacturerDevice IdentifierShelf Expiration DateModel / Serial / LotRivacor 7 Hf-T Qp Implanted:Qty: 1 on 06/12/2023 by [facility] [id number] / [id number] / IcdICDChest WallPlexa Promri S 60 - [id number] - [id number] Implanted:Qty: 1 on 06/12/2023 by [id number] / [id number] / Lead,Megan Cheek L-85 - [id number] - [id number] Implanted:Qty: 1 on 06/12/2023 by [id number] / [id number] / Procedures Procedure NamePriorityDate/TimeAssociated DiagnosisCommentsCARDIAC DEVICE CHECK CHECK - QEKDOFLlxlbmj68/16/2025 10:34 AM EST Pre-operative cardiovascular examination, ICD in place CARDIAC DEVICE CHECK - REMOTE - NPNMiideur98/11/2025 12:00 AM ESTCARDIAC DEVICE CHECK - IN CLINIC - ICD BIVENTRICULAR CHAMBER W/ ZOUGKshfrvw51/02/2025 4:59 PM EST Encounter for implantable defibrillator reprogramming or check ECG 12 LEAD UNIT YRYLJRYQKXyqpifr34/02/2025 10:49 AM EST Paroxysmal atrial fibrillation (CMS/HCC) CARDIAC DEVICE CHECK CHECK - EVRCCLPlgodab28/11/2025 6:41 PM EST Pre-operative cardiovascular examination, ICD in place CARDIAC DEVICE CHECK - REMOTE - YVSLnzcrht71/10/2025 12:00 AM ESTCARDIAC DEVICE CHECK CHECK - IOHSLWOcmafma82/06/2025 5:36 PM EST Pre-operative cardiovascular examination, ICD in place CARDIAC DEVICE CHECK - REMOTE - VGDQkrjpea27/02/2025 12:00 AM EDTCARDIAC DEVICE CHECK CHECK - CLNEIVZofoeqp32/14/2025 3:32 PM EDT Pre-operative cardiovascular examination, ICD in place CARDIAC DEVICE CHECK - REMOTE - HHEKwhddlv03/10/2025 12:00 AM EDTHEMOGLOBIN A1C Dmmlcfw1804/01/2022 5:51 AM EDT from Last 3 Months or Most Recently Relevant to Health Maintenance Results * CARDIAC DEVICE CHECK - REMOTE - ICD (09/30/2025 10:34 AM EST) Only the most recent of4 resultswithin the time period is included. Specimen (Source)Anatomical Location / LateralityCollection Method / Volume Collection TimeReceived Time Narrative Authorizing ProviderResult TypeResult StatusPaul Jan MDCV IMPLANTABLE CARDIAC DEVICE PROCEDURESFinal ResultPerforming OrganizationAddressCity/State/ZIP Code Phone Number CPACS * Cardiac device check - Remote ICD (09/25/2025 12:00 AM EST) Only the most recent of4 resultswithin the time period is included. Anatomical RegionLateralityModalityOtherSpecimen (Source)Anatomical Location / LateralityCollection Method / VolumeCollection TimeReceived Time09/25/2025 Narrative Authorizing ProviderResult TypeResult Fran Lynda Lazo [facility] IMPLANTABLE CARDIAC DEVICE PROCEDURESFinal Result * CARDIAC DEVICE CHECK - IN CLINIC - ICD BIVENTRICULAR CHAMBER W/ PROG (09/16/2025 4:59 PM EST)Anatomical RegionLateralityModalityOtherSpecimen (Source)Anatomical Location / LateralityCollection Method / VolumeCollection TimeReceived Time Narrative 09/17/2025 6:05 PM EST Normal device function Authorizing ProviderResult TypeResult Phu Montoya [facility] IMPLANTABLE CARDIAC DEVICE PROCEDURESFinal Result * ECG 12 lead unit performed (09/16/2025 10:49 AM EST)Specimen (Source) Anatomical Location / LateralityCollection Method / VolumeCollection Time Received Time Narrative Authorizing ProviderResult TypeResult Phu Montoya MDECG ORDERABLESFinal Result * (ABNORMAL) Hemoglobin A1c (04/01/2022 5:51 AM EDT)ComponentValueRef RangeTest MethodAnalysis TimePerformed AtPathologist SignatureHemoglobin A1C6.4(H)4.0 - 6.0 %LAB CONVERSIONSEstimated Average Irvhkcb204hlpb/LLAB CONVERSIONSSpecimen (Source)Anatomical Location / LateralityCollection Method / [...] DateEnd Date Arnie Lund DO [address] [place] [address] [facility]06/07/22
--- OUTSIDE RECORDS SUMMARY | 2025-10-01 12:41 | XMS_ITS | Clinical Summary ---
Author Organization [facility] Healthcare Address [address] [place] [address] Care Team Providers Care Pocketed Spring Assembler Name Role Phone KevonArnie Primary Care Provider [phone] Allergies No known active allergies Medications MedicationSigDispense QuantityRefillsLast FilledStart DateEnd DateStatus Hotahrtmxni-Antnsadbl-Mkvvhz (Trelegy Ellipta) 200-62.5-25 MCG/ACT aerosol powder InhaleActive [...] Problems ProblemNoted DateDiagnosed DateOSA (obstructive sleep apnea)07/08/2024 Zipjneawxxk33/23/2024rimary iouftakf08/23/2024 Encounters DateTypeDepartmentCare ZawhObpqauxacnc78/12/2025 9:45 AM ESTProcedure Visit [facility] [address] [place] [phone] Kole Batista DPM Onychomycosis (Primary Dx); Onychodystrophy; Diabetic polyneuropathy associated with type 2 diabetes mellitus (HCC)08/27/2025 Bamboo flowsheet [facility] [address] [place] [address] Kole Batista DPM 08/27/20254983Snwaer45/10/6405Lffixa48/30/2025Telephone [facility] [address] [facility] [place] [address] Ghazala Marie MA from Last 3 Months [...] on fileLegal SexMale 12/28/2022 7:17 PM EDTGender QiyhlzscOqxi17/03/2023 4:57 PM EDTSexual OrientationNot on file Last Filed Vital Signs Vital SignReadingTime TakenCommentsBlood Shwlmxko098/7407/09/2024 10:33 AM EDT Ohbsx796007/09/2024 10:33 AM EDTTemperature--Respiratory Rate--Oxygen Saturation 93%07/09/2024 10:33 AM EDTInhaled Oxygen Concentration--Pwuqkc87.5 kg (195 lb) 08/27/2025 10:01 AM MPMZrrmoc712.3 cm (5' 11 )08/27/2025 10:01 AM ESTBody Mass Index27. 10:01 AM EST Plan of Treatment DateTypeDepartmentCare Team (Latest Contact Info)Tevcnffaxum80/16/2026 9:00 AM ESTProcedure Visit [facility] [address] [place] [address] Kole Batista, DPM [address] [place], [place] [id number] Health MaintenanceDue DateLast DoneCommentsCOVID-19 Vaccine ( season) 61, 07/22/2024, 07/20/2023, Additional history exists Pneumococcal Vaccine: 65+ JabcjZecgitzbx22/11/2016, 08/02/2013, 07/16/2013 Influenza RslwkvzYdjjysapg52/23/2025, 07/15/2024, 07/11/2023, Additional history exists Insurance Care Teams Team MemberRelationshipSpecialtyStart DateEnd Date Arnie Lund DO [address] [place] [address] PCP - GeneralInternal Medicine02/18/25
--- OUTSIDE RECORDS SUMMARY | 2025-10-01 12:41 | XMS_ITS ---
Author Organization [facility] Address [address] [place] [address] Care Team Providers Care Water Quality Technician Name Role Phone Arnie Lund DO Primary Care Provider [phone] Active Problems ProblemNoted DateDiagnosed DateAcute blood loss lloamw835Acute kidney injury superimposed on CKD5Acute on chronic mmuulm725Anemia of renal /02/2025Aspiration jfxtebkpn70/02/2025Bruising at injection site 5Coronary artery ankxuah8909/16/2025Femoral neck cwnwmmyn12/02/2025 History of gsyhimmroqcxhr28/02/9340Vaqkfzw19/02/2025Positive fecal occult blood test09/16/2025Screening PSA (prostate specific antigen)09/16/2025 Overview (09/16/2025): PSA: 0.91 - 07/2024, 0.98 - 02/2025 Secondary lzjmuvlkudrabaiviea78/02/8113Ktvsxew21/02/2025Status post hemiarthroplasty of right hip09/16/20257971Bcvbfbkedcx67/23/2024rimary insomnia 4Chronic bronchitis, ozcddm2603/29/2024hronic venous insufficiency 3216Sxwpajdwfrcs08/14/2024Hyperlipidemia type II03/29/2024Hypothyroidism due to vganitjjab98/14/2024Impaired mobility and activities of daily living 03/29/2024Iron deficiency tvbvbp0003/29/2024olon itfrtg8103/29/2024Mucopurulent chronic vumdwdlogl06/14/2024Obstructive sleep apnea03/29/20244517Kdyiuorzw80/14/2024 A-fib03/29/2024soas abscess, right03/29/2024ulmonary zwgbfsarmmmq06/14/2024 Cbzxiydgjhfovk12/14/2024Type 2 diabetes mellitus with emzkgvnvienoi50/14/2024 Stage 4 chronic kidney qkrwsob7109/22/2023Statin auvhwmlzzgw06/14/2023ilated qqhqtxlyamlpbc19/20/2023 Overview (04/04/2023): Added automatically from request for surgery [id number] Stage 3 chronic kidney vruzhzp4406/09/2022hronic systolic heart mvtqceg2106/09/2022 Assessment & Plan (09/20/2022 5:21 PM EST): -HFrEF -NHYA III -he appears euvolemic on exam despite weight gain, this could be attributed to correcting thyroid issues -He has no LE edema, JVD -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 vehicle service attendant regarding kidney function -he will need 3 month follow up with moukarbel -continue GDMT: norvasc, aspirin, bumex, hydralazine, isosorbide, toprolXL Gsvhowfqtumi96/25/2022Edema of lower iollfhqck26/25/2022 Assessment & Plan (09/20/2022 5:23 PM EST): -this must be improved as he does not exhibit any LE edema Hypertensive yqzkjnai21/25/2022 Assessment & Plan (09/20/2022 5:22 PM EST): -he is controlled today -will continue to re-evaluate on follow up pending nephrology recommendations Left ventricular systolic hcslrzptuox76/25/3171Zuxnmhyupna87/25/2022COPD (chronic obstructive pulmonary disease)2Osteomyelitis of vertebra 0223Jdeiyqyeqs38/01/4043Zlxcrbctfsvztx47/01/2021Type 2 diabetes mellitus 06/16/2021aroxysmal atrial frhvwkm7008/16/2019 Current Treatment and Therapy Plans No current plan information found. Past Treatment and Therapy Plans No past plan information found. Lifetime Dose Tracking * ChemicalLifetime DoseAutomatic EntryManual EntryFluoro Time7.9 minutes0 minutes7.9 minutesAir Kerma62 mGy0 mGy62 mGyDose Area Product6,950 mGy-cm20 mGy-cm26,950 mGy-cm2 Resolved Problems ProblemNoted DateDiagnosed DateResolved PvyoBfmqwlqrlkyh73/01/202107/
--- OUTSIDE RECORDS SUMMARY | 2025-10-01 12:41 | XMS_ITS | Encounter Summary ---
Author Organization [facility] Address [address] [place] [place] [address] Care Team Providers Care Systems Tester Name Role Phone Arnie Lund DO Primary Care Provider [phone] Encounter Details DateTypeDepartmentCare Team (Latest Contact Info)Dtdpnpqbrow59/10/2025Orders Only [facility] Pre-Anesthesia Clinic [address] [place] [address] Brooke Grier, CAROL Social History Tobacco UseTypesPacks/DayYears UsedDateSmoking Tobacco: FormerCigarettesQuit: 1982Smokeless Tobacco: NeverAlcohol UseStandard Drinks/WeekCommentsYes0 (1 standard drink = 0.6 oz pure alcohol)OCCASIONALPHQ-2AnswerDate RecordedPatient Health Questionnaire-2 [id number] Safety & EnvironmentAnswerDate RecordedFear of Current or Ex-PartnerNot on file12/07/2023Emotionally AbusedNot on file12/07/2023hysically AbusedNot on 12/07/2023Sexually AbusedNot on file12/07/2023hysically or Sexually AbusedNot on file12/07/2023Sex and Gender InformationValueDate RecordedSex Assigned at CckyaEkhm92/28/2023 6:32 AM EDT Legal KgqCblk7404/13/2022 11:44 PM EDTGender WzpitybfScva38/28/2023 6:32 AM EDT Sexual OrientationHeterosexual or Bozxlijn88/28/2023 6:32 AM EDTdocumented as of this encounter Plan of Treatment Not on file documented as of this encounter Procedures Procedure NamePriorityDate/TimeAssociated DiagnosisCommentsCARDIAC DEVICE CHECK - REMOTE - AXJUtzijkx13/11/2025 12:00 AM ESTdocumented in this encounter Results * Cardiac device check - Remote ICD (09/25/2025 12:00 AM EST)Anatomical Region LateralityModalityOtherSpecimen (Source)Anatomical Location / Laterality Collection Method / VolumeCollection TimeReceived Time09/25/2025 Narrative Authorizing ProviderResult TypeResult StatusSastanley Lazo [facility] [place] IMPLANTABLE CARDIAC DEVICE PROCEDURESFinal Result documented in this encounter Visit Diagnoses Not on filedocumented in this encounter Care Teams Team MemberRelationshipSpecialtyStart DateEnd Date Arnie Lund DO [address] [place] [id number] PCP - General06/07/22documented as of this encounter
--- OUTSIDE RECORDS SUMMARY | 2025-10-01 12:41 | XMS_ITS | Clinical Summary ---
Author Organization [facility] Address [address] [place] [address] Phone Care Team Providers Care Fountain Brush Assembler Name Role Phone Unavailable Primary Care Provider Unavailabl e Social History Tobacco UseTypesPacks/DayYears UsedDateSmoking Tobacco: Never AssessedSex and Gender InformationValueDate RecordedSex Assigned at BirthNot on fileLegal Sex Male09/10/2022 9:13 AM ESTGender IdentityNot on fileSexual OrientationNot on file Plan of Treatment Not on file
--- OUTSIDE RECORDS SUMMARY | 2025-10-01 12:41 | XMS_ITS | Clinical Summary ---
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 Name Role Phone Arnie Lund Primary Care Provider [phone] Allergies Active AllergyReactionsCriticalityNoted UbmxIepuygdfXpnseax-Kjo-Zxn Reductase Xstvstfssv26/19/2022 Medications MedicationSigDispense QuantityRefillsLast FilledStart DateEnd DateStatus allopurinoL [...] stage 4 (severe) 2Diabetes mellitus type 2, byadzuvhkn76/19/4610Dlcmmrqaszwf37/19/2022 Chronic systolic heart exntyzx52/19/2022COPD (chronic obstructive pulmonary disease)11/03/2021 Family History Medical HistoryRelationNameCommentsDiabetesFatherHypertensionFatherDiabetes MotherHypertensionMotherRelationNameStatusCommentsFatherMother Social History Tobacco UseTypesPacks/DayYears UsedDateSmoking Tobacco: FormerSmokeless Tobacco: Never Tobacco Cessation:Counseling Given: Not Answered Alcohol UseStandard Drinks/WeekCommentsNot Currently0 (1 standard drink = 0.6 oz pure alcohol)ChildcareAnswerDate TxzxhfscJonbukxgrKjiqtiy36/12/2019Employment AnswerDate MdljjeskCpejlfwpcpUckkkjt73/12/2019Purpose - LifeAnswerDate Recorded Purpose and direction in gpbnJlgmhrh17/11/2021ex and Gender InformationValue Date RecordedSex Assigned at BirthNot on fileLegal UmnGplg2005/21/2015 11:38 AM EDTGender IdentityNot on fileSexual OrientationNot on file Last Filed Vital Signs Vital SignReadingTime TakenCommentsBlood Rmazihov819/8010 10:27 AM EDT Dgrza5935 10:27 AM OXLHbksithkuwe47.7 ??C (98.1 ??F)11/11/2021 10:01 AM ESTRespiratory Rate--Oxygen Gliiubndoj65%10/05/2023 4:11 PM ESTInhaled Oxygen Concentration--Yyraap89.2 kg (218 lb 12.8 oz)08/08/2024 10:25 AM MLJRdytjz927.3 cm (5' 11 )08/08/2024 10:25 AM EDTBody Mass Index30.5208/08/2024 10:25 AM EDT Plan of Treatment Health MaintenanceDue DateLast DoneCommentsDepression Eqldveqcy00/18/1954 DTaP,Tdap and Td Vaccines (1 - Tdap)1961Zoster (Shingles) Vaccine (1 of 2) 1992Fall Risk Zycayaepc89/18/2007RSV ( or age 60+ yrs) (1 - 1-dose 75+ series)2017COVID-19 Vaccine ( season), 07/20/2023, 07/10/2022, Additional history existsInfluenza Pcljkqb4206/16/2025 07/15/2024, 07/11/2023, 07/04/2022, Additional history existsTobacco Screening Medical Devices Not on file Insurance * Guarantor: Nas OliverAccount TypeRelation to PatientDate of BirthPhone Billing AddressPersonal/OgwzfkLvcx[address] [address] Care Teams Team MemberRelationshipSpecialtyStart DateEnd Date Arnie Lund DO PCP - GeneralInternal Medicine11/11/21
[2025-10-01 13:41] LABS: Thyroid Stimulating Hormone 7.892 uIU/mL (0.358-3.740)
== END 2025-10-01 12:33 | disposition home or self-care (01) ==
PROVIDERS: PCP Internal Medicine; Visit Provider Internal Medicine
DX: E05.80 Other thyrotoxicosis without thyrotoxic crisis or storm (principal)
CPT/HCPCS: 36415; 84443